=== PATIENT | female | born 1945 | race Caucasian/White ===

== ENCOUNTER 2018-07-06 23:38 | Observation (INO) | payer OTHER ==
--- OUTSIDE RECORDS SUMMARY | 2018-07-06 23:40 | XMS REPORT | Clinical Summary ---
:1945 Author Organization [facility] Address [address] [place] [address] Care Team Providers Name Role Phone Manfred Scott Primary Care Provider Allergies Active Allergy Reactions Severity Noted Date Comments Salicylates Rash Low 02/10/2014 Ciprofloxacin Anaphylaxis High 02/10/2014 Erythromycin Other (See Comments) 02/10/2014 Stomach cramping Levofloxacin Anaphylaxis High 02/10/2014 Penicillins Swelling High 02/13/2014 Medications Medication Sig Dispensed Refills Start Date End Date Status metoprolol Take 25 mg by mouth 0 Active (TOPROL-XL) 25 MG 24 daily. hr tablet furosemide (LASIX) 40 Take 40 mg by mouth 0 Active MG tablet daily. ramipril (ALTACE) 5 Take 5 mg by mouth 0 Active MG capsule daily. rOPINIRole (REQUIP) 2 Take 2 mg by mouth 0 Active MG tablet nightly. amLODIPine (NORVASC) Take 5 mg by mouth 0 Active 5 MG tablet daily. benzonatate Take 200 mg by mouth 0 Active (TESSALON) 200 MG 3 (three) times capsule daily as needed for Cough. diphenhydrAMINE Take 25 mg by mouth 0 Active (BENADRYL ALLERGY) 25 every 6 (six) hours mg tablet as needed. insulin glargine Inject 40 Units 0 Active (LANTUS SOLOSTAR) 100 subcutaneously 2 unit/mL (3 mL) InPn (two) times daily. DULAGLUTIDE Inject 0 Active (TRULICITY SUBQ) subcutaneously every 7 days. levothyroxine Take 88 mcg by mouth 0 Active (SYNTHROID, Every morning on an LEVOTHROID) 88 MCG empty stomach. tablet metFORMIN Take 500 mg by mouth 0 Active (GLUCOPHAGE) 500 MG 2 (two) times daily tablet with breakfast and dinner. gabapentin Take 100 mg by mouth 0 Active (NEURONTIN) 100 MG daily. capsule atorvastatin Take 40 mg by mouth 0 Active (LIPITOR) 40 MG daily. tablet Active Problems Problem Noted Date Trigger finger 02/13/2014 Social History Tobacco Use Types Packs/Day Years Used Date Never Smoker Smokeless Tobacco: Never Used Alcohol Use Drinks/Week oz/Week Comments No Sex Assigned at Date Recorded Not on file Job Start Date Occupation Industry Not on file Not on file Not on file Travel History Travel Start Travel End No recent travel history available. Last Filed Vital Signs Not on file Plan of Treatment Not on file Results Not on fileafter 07/05/2017 Insurance Payer Benefit Plan / Subscriber ID Type Phone Address Group [employer] - MEDICARE [employer] MEDICARE HMO xxxxxxxx [phone] [address] [place] [address] Advance Directives For more information, please contact:[address] [phone] Code Status Date Activated Date Inactivated Comments Full Code 02/13/2014 10:17 AM 02/13/2014 6:26 PM This code status was determined by: Patient
--- OUTSIDE RECORDS SUMMARY | 2018-07-06 23:40 | XMS REPORT ---
:1945 [facility] Address [address] [place] [address] Dr. Tillman [address] [place] [id number] Care Team Providers Name Role Phone RUMA SANTANA Unavailable Unavailable Problems This patient has no known problems. Allergies, Adverse Reactions, Alerts This patient has no known allergies or adverse reactions. Medications This patient has no known medications. Results Test Description Test Time Test Comments Text Results Atomic Results Result Comments TISSUE EXAM 2017-02-26 15:21:00 Surgical Pathology Report Case: [id number] Authorizing Provider: Ruma Santana MD Collected: 02/24/2017 1559 Ordering Location: [facility] Received: 02/25/2017 0810 Pathologist: Kenji Hercules MD Specimens: A) - Large Intestine, Colon - Right/Ascending, BX-R/O MICROSCOPIC COLITIS B) - Large Intestine, Colon - Left/Descending, BX-R/O MICROSCOPIC COLITIS C) - Polyp, Colon - Sigmoid, POLYP-TAKEN W/FRCP A. RIGHT/ASCENDING COLON BIOPSY - COLONIC MUCOSA, WITHIN NORMAL LIMITS- NO EVIDENCE OF LYMPHOCYTIC/MICROSCOPIC COLITISB. LEFT/DESCENDING COLON BIOPSY- COLONIC MUCOSA, WITHIN NORMAL LIMITS- NO EVIDENCE OF LYMPHOCYTIC/MICROSCOPIC COLITISC. SIGMOID COLON POLYP, BIOPSY- SESSILE SERRATED POLYP/ADENOMA Signing Pathologist Direct Phone Line: [phone] signed by Kenji Hercules MD on 02/26/2017 at 3:21 [id number] x 3Diarrhea, rule out microscopic colitisA. Right/ascending colon biopsy; B. Left/descending colon biopsy; C. Sigmoid colon polypSpecimen A: Received in formalin labeled "large intestine, colon right/ascending" is a single fragment measuring 0.3 cm in greatest dimension. Specimen is entirely submitted in A1. Specimen B: Received in formalin labeled "large intestine, colon left/descending" is a single fragment measuring 0.3 cm in greatest dimension. Specimen is entirely submitted in B1.Specimen C: Received in formalin labeled "polyp, colon sigmoid" is a single fragment measuring 0.2 cm in greatest dimension. Specimen is entirely submitted in C1. DB/ew A. Sections reveal a small piece of benign colonic mucosa with no significant histopathologic abnormality. The lamina propria has minimal chronic inflammation and a small benign lymphoid aggregate. Normal crypt architecture is seen with no evidence of granulomatous inflammation or acute colitis. Features of collagenous colitis, inflammatory bowel disease and lymphocytic colitis are not seen. Adenomatous change, dysplasia and malignancy are not seen.B. Sections reveal pieces of benign colonic mucosa with no significant histopathologic abnormality. The lamina propria has minimal chronic inflammation. Normal crypt architecture is seen with no evidence of granulomatous inflammation or acute colitis. Features of collagenous colitis, inflammatory bowel disease and lymphocytic colitis are not seen. Adenomatous change, dysplasia and malignancy are not seen.C. Sections reveal sessile serrated polyp/adenoma with glands showing hyperplastic changes, serrated appearance with focal irregularity and hyperserrations. Dysplasia and malignancy are not seen. POCT-GLUCOSE METER 2017-02-24 16:58:00 Test Item Value Reference Range Comments POC-GLUCOSE METER (BEAKER) (test 144 mg/dL 70-110 TESTED AT [address] [id number]) [place] [id number] POCT-GLUCOSE [id number] 14:21:00 Test Item Value Reference Range Comments POC-GLUCOSE METER (BEAKER) 118 mg/dL 70-110 TESTED AT [address] (test [id number]) [facility] [id number]
--- NOTE | 2018-07-07 00:45 | ER ---
Nurse's Notes [facility] Name: Franci Lange Age: 73 yrs Sex: Female : 1945 Arrival Date: 07/06/2018 Time: 23:39 Bed 4 Private MD: Diagnosis: Chest pain, unspecified;Type 1 diabetes mellitus;Obesity, unspecified;Pain in left foot Presentation: 07/06 23:58 Presenting complaint: states: "she is having left foot pain and chest pain that jd3 comes and goes.". Transition of care: patient was not received from another setting of care. Onset of symptoms was July 06, 2018. Risk Assessment: Do you want to hurt yourself or someone else? Patient reports no desire to harm self or others. Initial Sepsis Screen: Does the patient meet any 2 criteria? No. Patient's initial sepsis screen is negative. Does the patient have a suspected source of infection? No. Patient's initial sepsis screen is negative. Care prior to arrival: None. 23:58 Method Of Arrival: Wheelchair j 23:58 Acuity: JAY 2 jd3 Historical: - Allergies: 07/07 00:16 PENICILLINS; jd3 00:16 Ciprofloxacin; jd3 00:16 cefepime; jd3 00:16 Cephalosporins; jd3 00:16 Aspirin; jd3 00:16 Phenobarbital; jd3 00:16 Cortizone-10; jd3 - Home Meds: 00:16 atorvastatin 40 mg oral tab 1 tab once daily [Active]; furosemide 40 mg Oral tab jd3 [Active]; potassium chloride 10 mEq Oral cpER [Active]; ramipril Oral [Active]; amlodipine oral [Active]; metoprolol succinate 100 mg oral Tb24 [Active]; levothyroxine oral [Active]; lantis [Active]; Trulicity subcutaneous subcutaneous [Active]; gabapentin oral oral [Active]; Metformin Oral [Active]; Farxiga oral oral [Active]; benzonatate oral oral [Active]; - PMHx: 00:16 Myocardial infarction; Diabetes - IDDM; jd3 - PSHx: 00:16 brain; jd3 - Immunization history:: Adult Immunizations up to date. - Social history:: Smoking status: Patient/guardian denies using tobacco. - Ebola Screening: : Patient negative for fever greater than or equal to 101.5 degrees Fahrenheit, and additional compatible Ebola Virus Disease symptoms. - Family history:: not pertinent. Screenin:48 Abuse screen: Denies threats or abuse. Denies injuries from another. Nutritional ed1 screening: No deficits noted. Tuberculosis screening: No symptoms or risk factors identified. Fall Risk Fall in past 12 months (25 points). Secondary diagnosis (15 points) impaired mobility, No IV (0 pts). Ambulatory Aid- Crutches/Cane/Walker (15 pts). Gait- Impaired (20 pts.). Mental Status- Oriented to own ability (0 pts). Total Badillo Fall Scale indicates High Risk Score (45 or more points). Fall prevention measures have been instituted. Side Rails Up X 2 Frequent Obs/Assessments Occuring Family Present and informed to notify staff if the need to leave the bedside As available patient and family educated on Fall Prevention Program and Strategies. Assessment: 00:48 General: Appears in no apparent distress. Behavior is calm, cooperative. Pain: ed1 Complains of pain in heel of left foot and chest Pain does not radiate. Pain currently is 5 out of 10 on a pain scale. Quality of pain is described as aching, Pain began 1 day ago. Neuro: Level of Consciousness is awake, alert, obeys commands, Oriented to person, place, time, situation. Cardiovascular: Reports chest pain, Heart tones S1 S2 present. Respiratory: Airway is patent Respiratory effort is even, unlabored, Respiratory pattern is regular, symmetrical, Breath sounds are clear bilaterally. GI: Abdomen is round Bowel sounds present X 4 quads. : No signs and/or symptoms were reported regarding the genitourinary system. EENT: No signs and/or symptoms were reported regarding the EENT system. Derm: Skin is intact, is healthy with good turgor, Skin is dry, Skin is pink, warm \\T\\ dry. Skin temperature is warm. Musculoskeletal: Circulation, motion, and sensation intact. Reports pain in heel of left foot. 01:44 Reassessment: Dr. Vang at bedside to speak with patient in regards to need for ed1 vascular access for admission. Pt agrees to attempt IV one more time. 02:30 Reassessment: Patient appears in no apparent distress at this time. Patient and/or ed1 family updated on plan of care and expected duration. Pain level reassessed. Patient is alert, oriented x 3, equal unlabored respirations, skin warm/dry/pink. Vital Signs: 00:00 BP 161 / 89; Pulse 88; Resp 19 S; Temp 98.3(O); Pulse Ox 97% on R/A; Weight 113.4 kg jd3 (R); Height 4 ft. 11 in. (149.86 cm) (R); Pain 5/10; 02:30 BP 141 / 102; Pulse 82; Resp 18; Temp 98.5(O); Pulse Ox 97% on R/A; Pain 5/10; ed1 00:00 Body Mass Index 50.49 (113.40 kg, 149.86 cm) jd3 ED Course: 07/06 23:39 Patient arrived in ED. ds1 23:42 Radha Collins, RENAY is Primary Nurse. ed1 23:57 Luther Vang MD is Attending Physician. augusta 02 00:00 Triage completed. jd3 00:00 Missed attempt(s): 22 gauge in right antecubital area. lp1 00:01 Arm band placed on. EKG completed in triage. Results shown to MD. jd3 00:20 X-ray completed. Portable x-ray completed in exam room. Patient tolerated procedure kw well. 00:26 XRAY Chest (1 view) In Process Unspecified. EDMS 00:42 Manfred Pearson MD is Hospitalizing Provider. augusta 00:48 Patient has correct armband on for positive identification. Placed in gown. Bed in low ed1 position. Call light in reach. Side rails up X2. Adult w/ patient. conveyor monitor on. Pulse ox on. NIBP on. 00:48 Patient maintains SpO2 saturation greater than 95% on room air. ed1 00:50 Foot Left 3 View XRAY In Process Unspecified. EDMS 01:25 Missed attempt(s): 18 gauge midlines to bilateral arms. Pt did not tolerated it well. fc Refused to allow the second attempt to be completed. . 01:30 Notified ED physician of a critical lab result(s). D dimer 764. fc 02:00 Missed attempt(s): 22 gauge in left upper arm. Bleeding controlled, band aid applied, aa1 catheter tip intact. 02:10 Inserted saline lock: 24 gauge in right upper arm, using aseptic technique. Blood aa1 collected. 03:03 No provider procedures requiring assistance completed. Patient admitted, IV remains in ed1 place. intact, No redness/swelling at site. Administered Medications: 02:28 Drug: Lopressor (metoprolol TARTRATE) 50 mg Route: PO; ed1 03:04 Follow up: Response: No adverse reaction ed1 02:29 Drug: Lovenox 100 mg Route: Sub-Q; Site: right lower abdomen; ed1 03:04 Follow up: Response: No adverse reaction ed1 03:03 CANCELLED (Order placed in [employer]): PlaVIX 300 mg PO once ed1 Outcome: 00:41 Discharge ordered by . augusta 00:43 Decision to Hospitalize by Provider. augusta 03:03 Admitted to Med/surg accompanied by tech, family with patient, via stretcher, room 222, ed1 with chart, Report called to Corie Graff LVN 03:03 Condition: good 03:03 Discharge instructions given to patient, family, Instructed on the need for admit, Demonstrated understanding of instructions. 03:05 Patient left the ED. ed1 Signatures: Dispatcher [employer] EDMS Lexii Mota, RN RN aa1 Luther Vang MD MD cha Chretien, Felicia RN RN Ana Ferreira ds1 Radha Collins RN RN ed1 Elizabeth Weinstein Laura, RN RN lp1 Alexandr De RN RN jd3 Corrections: (The following items were deleted from the chart) 00:00 00:00 Immunization history: Adult Immunizations jd3 jd3
--- NOTE | 2018-07-07 00:45 | EDPHYS ---
Physician Documentation [facility] Name: Franci Lange Age: 73 yrs Sex: Female : 1945 Arrival Date: 07/06/2018 Time: 23:39 Bed 4 Private MD: ED Physician Luther Vang HPI: 07/07 00:37 This 73 yrs old Female presents to ER via Wheelchair with complaints of Chest augusta Pain. 00:37 The patient or guardian reports chest pain that is located primarily in the anterior augusta chest wall, right. Onset: yesterday, last night. The pain does not radiate. Associated signs and symptoms: The patient has no apparent associated signs or symptoms. The chest pain is described as a heaviness, a pressure. Modifying factors: The symptoms are alleviated by nothing. the symptoms are aggravated by nothing. Severity of pain: At its worst the pain was mild in the emergency department the pain is unchanged. The patient has experienced similar episodes in the past, several times. Historical: - Allergies: 00:16 PENICILLINS; jd3 00:16 Ciprofloxacin; jd3 00:16 cefepime; jd3 00:16 Cephalosporins; jd3 00:16 Aspirin; jd3 00:16 Phenobarbital; jd3 00:16 Cortizone-10; jd3 - Home Meds: 00:16 atorvastatin 40 mg oral tab 1 tab once daily [Active]; furosemide 40 mg Oral tab jd3 [Active]; potassium chloride 10 mEq Oral cpER [Active]; ramipril Oral [Active]; amlodipine oral [Active]; metoprolol succinate 100 mg oral Tb24 [Active]; levothyroxine oral [Active]; lantis [Active]; Trulicity subcutaneous subcutaneous [Active]; gabapentin oral oral [Active]; Metformin Oral [Active]; Farxiga oral oral [Active]; benzonatate oral oral [Active]; - PMHx: 00:16 Myocardial infarction; Diabetes - IDDM; jd3 - PSHx: 00:16 brain; jd3 - Immunization history:: Adult Immunizations up to date. - Social history:: Smoking status: Patient/guardian denies using tobacco. - Ebola Screening: : Patient negative for fever greater than or equal to 101.5 degrees Fahrenheit, and additional compatible Ebola Virus Disease symptoms. - Family history:: not pertinent. ROS: 00:37 Constitutional: Negative for fever, chills, and weight loss, Eyes: Negative for injury, augusta pain, redness, and discharge, ENT: Negative for injury, pain, and discharge, Neck: Negative for injury, pain, and swelling, Respiratory: Negative for shortness of breath, cough, wheezing, and pleuritic chest pain, Abdomen/GI: Negative for abdominal pain, nausea, vomiting, diarrhea, and constipation, Back: Negative for injury and pain, : Negative for injury, bleeding, discharge, and swelling, MS/Extremity: Negative for injury and deformity, Skin: Negative for injury, rash, and discoloration, Neuro: Negative for headache, weakness, numbness, tingling, and seizure, Psych: Negative for depression, anxiety, suicide ideation, homicidal ideation, and hallucinations, Allergy/Immunology: Negative for hives, rash, and allergies, Endocrine: Negative for neck swelling, polydipsia, polyuria, polyphagia, and marked weight changes, Hematologic/Lymphatic: Negative for swollen nodes, abnormal bleeding, and unusual bruising. 00:37 Cardiovascular: Positive for chest pain, of the anterior aspect of right upper chest and right breast. Exam: 00:37 Constitutional: This is a well developed, well nourished patient who is awake, alert, augusta and in no acute distress. Head/Face: Normocephalic, atraumatic. Eyes: Pupils equal round and reactive to light, extra-ocular motions intact. Lids and lashes normal. Conjunctiva and sclera are non-icteric and not injected. Cornea within normal limits. Periorbital areas with no swelling, redness, or edema. ENT: Nares patent. No nasal discharge, no septal abnormalities noted. Tympanic membranes are normal and external auditory canals are clear. Oropharynx with no redness, swelling, or masses, exudates, or evidence of obstruction, uvula midline. Mucous membranes moist. Neck: Trachea midline, no thyromegaly or masses palpated, and no cervical lymphadenopathy. Supple, full range of motion without nuchal rigidity, or vertebral point tenderness. No Meningismus. Chest/axilla: Normal chest wall appearance and motion. Nontender with no deformity. No lesions are appreciated. Cardiovascular: Regular rate and rhythm with a normal S1 and S2. No gallops, murmurs, or rubs. Normal PMI, no JVD. No pulse deficits. Respiratory: Lungs have equal breath sounds bilaterally, clear to auscultation and percussion. No rales, rhonchi or wheezes noted. No increased work of breathing, no retractions or nasal flaring. Abdomen/GI: Soft, non-tender, with normal bowel sounds. No distension or tympany. No guarding or rebound. No evidence of tenderness throughout. Back: No spinal tenderness. No costovertebral tenderness. Full range of motion. Female : Normal external genitalia. Skin: Warm, dry with normal turgor. Normal color with no rashes, no lesions, and no evidence of cellulitis. Neuro: Awake and alert, GCS 15, oriented to person, place, time, and situation. Cranial nerves II-XII grossly intact. Motor strength 5/5 in all extremities. Sensory grossly intact. Cerebellar exam normal. Normal gait. Psych: Awake, alert, with orientation to person, place and time. Behavior, mood, and affect are within normal limits. 00:37 Musculoskeletal/extremity: Extremities: noted in the medial aspect of left heel and heel of left foot: decreased ROM, pain, tenderness, DVT Exam: No signs of deep vein thrombosis. no pain, no swelling, no tenderness, negative Homans' sign noted on exam, no appreciated bluish discoloration, no erythema, no increased warmth. Vital Signs: 00:00 BP 161 / 89; Pulse 88; Resp 19 S; Temp 98.3(O); Pulse Ox 97% on R/A; Weight 113.4 kg jd3 (R); Height 4 ft. 11 in. (149.86 cm) (R); Pain 5/10; 02:30 BP 141 / 102; Pulse 82; Resp 18; Temp 98.5(O); Pulse Ox 97% on R/A; Pain 5/10; ed1 00:00 Body Mass Index 50.49 (113.40 kg, 149.86 cm) jd3 MDM: 07/06 23:57 Patient medically screened. [facility] [place] 07/07 00:37 Data reviewed: vital signs, nurses notes, lab test result(s), EKG, radiologic studies, augusta plain films. 07/06 23:59 Order name: Basic Metabolic Panel; Complete Time: 02:56 [facility] [place] 07/06 23:59 Order name: CBC with Diff; Complete Time: 01:38 [facility] [place] 07/06 23:59 Order name: LFT's; Complete Time: 02:56 [facility] [place] 07/06 23:59 Order name: Magnesium; Complete Time: 02:56 [facility] [place] 07/06 23:59 Order name: NT PRO-BNP; Complete Time: 02:56 [facility] [place] 07/06 23:59 Order name: PT-INR [facility] [place] 07/06 23:59 Order name: Troponin (emerg Dept Use Only); Complete Time: 02:56 [facility] [place] 07/06 23:59 Order name: Lipase; Complete Time: 02:56 [facility] [place] 07/06 23:59 Order name: Urine Culture [facility] [place] 07/07 00:29 Order name: D-Dimer; Complete Time: 01:38 [facility] [place] 07/07 00:52 Order name: Basic Metabolic Panel EDMS 07/07 00:52 Order name: Basic Metabolic Panel EDMS 07/07 00:52 Order name: CBC with Automated Diff EDMS 07/07 00:52 Order name: CBC with Automated Diff EDMS 07/06 23:59 Order name: XRAY Chest (1 view) [facility] [place] 07/06 23:59 Order name: EKG; Complete Time: 00:00 [facility] [place] 07/07 00:29 Order name: Foot Left 3 View XRAY [facility] [place] 07/07 00:48 Order name: CONS Physician Consult EDMS 07/07 00:52 Order name: Consistent Carb (ADA) 1800 Jos[address] EDMS 07/07 00:52 Order name: EKG Electrocardiogram EDMS 07/07 00:52 Order name: EKG Electrocardiogram EDMS 07/07 00:52 Order name: EKG Electrocardiogram EDMS 07/07 00:52 Order name: Troponin I EDMS 07/07 00:52 Order name: Troponin I EDMS 07/07 00:52 Order name: Troponin I EDMS 07/07 00:54 Order name: Echo with Doppler EDMS 07/07 01:30 Order name: Protime (+INR); Complete Time: 01:38 EDMS 07/06 23:59 Order name: Cardiac monitoring; Complete Time: 23:59 [facility] [place] 07/06 23:59 Order name: EKG - Nurse/Tech; Complete Time: 00:00 [facility] [place] 07/06 23:59 Order name: IV Saline Lock; Complete Time: 00:00 [facility] [place] 07/06 23:59 Order name: Labs collected and sent; Complete Time: 02:28 [facility] [place] 07/06 23:59 Order name: O2 Per Protocol; Complete Time: 00:00 [facility] [place] 07/06 23:59 Order name: O2 Sat Monitoring; Complete Time: 00:00 [facility] [place] 07/07 00:52 Order name: EKG Electrocardiogram EDMS Administered Medications: 02:28 Drug: Lopressor (metoprolol TARTRATE) 50 mg Route: PO; ed1 03:04 Follow up: Response: No adverse reaction ed1 02:29 Drug: Lovenox 100 mg Route: Sub-Q; Site: right lower abdomen; ed1 03:04 Follow up: Response: No adverse reaction ed1 03:03 CANCELLED (Order placed in StartX): PlaVIX 300 mg PO once ed1 Disposition: 07/07/18 00:43 Hospitalization ordered by Manfred Pearson for Inpatient Admission. Preliminary diagnosis are Chest pain, unspecified, Type 1 diabetes mellitus, Obesity, unspecified, Pain in left foot. - Bed requested for Telemetry/MedSurg (observation). - Status is Inpatient Admission. ed1 - Condition is Fair. - Problem is new. - Symptoms have improved. UTI on Admission? No Signatures: Dispatcher [employer] EDPR Diamante Hernandez RN Luther Patel MD MD cha Riggs, Erika RN RN ed1 Alexandr De RN RN jd3 Corrections: (The following items were deleted from the chart) 00:00 00:00 Immunization history: Adult Immunizations jd3 jd3 00:42 00:41 07/07/2018 00:41 Discharged to Home. Impression: Chest pain, unspecified; aug[place] Obesity, unspecified; Type 1 diabetes mellitus. Condition is Stable. Forms are Medication Reconciliation Form, Thank You Letter, Antibiotic Education, Prescription Opioid Use. Follow up: Private Physician; When: 2 - 3 days; Reason: Recheck today's complaints, Continuance of care, Re-evaluation by your physician. Problem is new. Symptoms have improved. augusta 00:44 00:43 Hospitalization Ordered by Manfred Pearson MD for Inpatient Admission. Preliminary augusta diagnosis is Chest pain, unspecified; Type 1 diabetes mellitus; Obesity, unspecified. Bed requested for Telemetry/MedSurg (observation). Status is Inpatient Admission. Condition is Fair. Problem is new. Symptoms have improved. UTI on Admission? No. [place] 00:51 00:44 07/07/2018 00:43 Hospitalization Ordered by Manfred Pearson MD for Inpatient mw Admission. Preliminary diagnosis is Chest pain, unspecified; Type 1 diabetes mellitus; Obesity, unspecified; Pain in left foot. Bed requested for Telemetry/MedSurg (observation). Status is Inpatient Admission. Condition is Fair. Problem is new. Symptoms have improved. UTI on Admission? No. [facility] [place] 03:03 02:57 PlaVIX 300 mg PO once ordered. [facility] [place] ed1 03:05 00:51 07/07/2018 00:43 Hospitalization Ordered by Manfred Pearson MD for Inpatient ed1 Admission. Preliminary diagnosis is Chest pain, unspecified; Type 1 diabetes mellitus; Obesity, unspecified; Pain in left foot. Bed requested for Telemetry/MedSurg (observation). Status is Inpatient Admission. Condition is Fair. Problem is new. Symptoms have improved. UTI on Admission? No. mw
[2018-07-07] MEDS ORDERED: ACETAMINOPHEN 500 MG TAB PO PRN (00:47)
[2018-07-07] MEDS ORDERED: MORPHINE 4 MG/ML SYR IV PRN (00:47)
[2018-07-07] MEDS ORDERED: ONDANSETRON 4 MG/2 ML VIAL IV PRN (00:47)
[2018-07-07] MEDS ORDERED: METOPROLOL TAR 50 MG TAB ONE (01:25)
[2018-07-07 01:29] LABS: Absolute Lymphocytes (CBC) 4.4 K/uL (0.7-4.9); Absolute Monocytes 0.8 K/uL (0.1-1.3); Absolute Neutrophil 5.4 K/uL (1.8-8.0); Basophils % 1.3 % (0-1.3); Hematocrit 47.7 % (36.0-45.0); MPV 10.6 fL (7.6-11.3); Monocytes % 6.8 % (3.3-12.3); Protime INR 0.98; RBC Red Blood Cell Count 5.13 M/uL (3.86-4.86)
[2018-07-07 02:46] LABS: ALT/SGPT 23 U/L (12-78); AST/SGOT 15 U/L (15-37); Albumin 2.9 g/dL (3.4-5.0); Alkaline Phosphatase 147 U/L (45-117); BUN Blood Urea Nitrogen 14 mg/dL (7-18); Bicarbonate 24 mmol/L (21-32); Bilirubin Direct < 0.1 mg/dL (0-0.2); Bilirubin Total 0.4 mg/dL (0.2-1.0); Glucose Level 288 mg/dL (74-106); Lipase 53 U/L (73-393); Magnesium 1.8 mg/dL (1.8-2.4); NT PRO-BNP 1767 pg/mL (<125); Potassium 4.4 mmol/L (3.5-5.1); Protein, Total 7.5 g/dL (6.4-8.2); Sodium Level 137 mmol/L (136-145); Troponin (Emerg Dept Use Only) 0.09 ng/mL (0.0-0.045)
[2018-07-07] MEDS ORDERED: CLOPIDOGREL 75 MG TABLET PO ONE (03:01)
[2018-07-07 03:35] VITALS: BMI 45.4
[2018-07-07 05:42] LABS: Urine Appearance CLEAR; Urine Bilirubin NEGATIVE (NEG); Urine Blood NEGATIVE (NEG); Urine Color YELLOW; Urine Glucose 3+ (NEG); Urine Protein 2+ (NEG); Urine Specific Gravity >=1.030 (1.005-1.030); Urine Urobilinogen 0.2 mg/dL (0.2-1.0)
[2018-07-07 05:49] LABS: Urine Microscopic Reflex ORDER UMIC
[2018-07-07 05:55] LABS: Urine Culture Reflex Order NOT NEEDED
[2018-07-07 05:56] LABS: Urine Bacteria <20 /HPF (<20); Urine RBC <5 /HPF (NONE SEEN); Urine Yeast FEW (NONE SEEN)
--- NOTE | 2018-07-07 08:18 | RAD REPORT ---
EXAM DESCRIPTION: US - Extrem Venous W Compress Alexander - 07/07/2018 8:14 am CLINICAL HISTORY: elevated d -dimer , left foot pain Bilateral leg edema and swelling. COMPARISON: No comparisons TECHNIQUE: Real-time sonographic interrogation of the left and right lower extremity deep venous sys tems was performed. FINDINGS: Normal compressibility, flow augmentation, phasic flow and spontaneous flow is identified in both the left and right lower extremity deep venous systems. IMPRESSION: No sonographic evidence of left or right lower extremity deep venous thrombosis.
--- NOTE | 2018-07-07 08:19 | RAD REPORT ---
EXAM DESCRIPTION: RAD - Chest Single View - 07/07/2018 12:21 am CLINICAL HISTORY: CHEST PAIN Chest pain. COMPARISON: Chest Pa And Lat (2 Views) dated 06/09/2016; Chest Pa And Lat (2 Views) dated 10/01/2015; CH EST PA AND LAT 2 VIEW dated 07/04/2015; CHEST SINGLE VIEW dated 07/15/2014 FINDINGS: Portable technique limits examination quality. The lungs are grossly clear. The heart is mildly prominent in size. No displaced fractures.Left-sided shunt tubing is present. IMPRESSION: No acute intrathoracic process suspected.
--- NOTE | 2018-07-07 08:23 | RAD REPORT ---
EXAM DESCRIPTION: NM - Vent Perfusion VQ Scan - 07/07/2018 6:41 am CLINICAL HISTORY: ro pe Chest pain, shortness of breath COMPARISON: No comparisons TECHNIQUE: 20.5mCi Xe-133 gas inhaled and 7.2mCi Tc-MAA IV. Planar ventilation scan was performed in posterior projection after Xe-133 gas inhalation (wash-in, e quilibrium, and wash-out phases) followed by perfusion scan with Tc-MAA IV in multiple projections. Examination is correlated with recent chest radiograph. FINDINGS: Homogeneous ventilation was noted with moderate air trapping. Slight heterogenous appearance to perfusion imaging is seen. However, no significant mismatched defec ts to indicate elevated risk of pulmonary embolism. IMPRESSION: Low probability of pulmonary embolism.
[2018-07-07] MEDS ORDERED: D50W 25 GM/50 ML SYRINGE IV PRN (08:25)
[2018-07-07] MEDS ORDERED: GLUCAGON 1 MG/VIAL IM PRN (08:25)
--- NOTE | 2018-07-07 08:31 | RAD REPORT ---
EXAM DESCRIPTION: RAD - Foot Left 3 View - 07/07/2018 12:50 am CLINICAL HISTORY: PAIN COMPARISON: No comparisons FINDINGS: Intertarsal degenerative changes are present. No acute fracture or dislocation is seen. Pr ominent calcaneal osteophytes are seen. No aggressive bone lesion.
[2018-07-07 08:59] VITALS: BP 110/90; TEMP 97.1
[2018-07-07] MEDS ORDERED: AMLODIPINE 10 MG TAB PO SCH (09:00)
[2018-07-07] MEDS ORDERED: GABAPENTIN 100 MG CAP PO SCH (09:00)
[2018-07-07] MEDS ORDERED: ENOXAPARIN 100 MG/ML SYR SQ SCH (09:00)
[2018-07-07] MEDS ORDERED: INSULIN GLARGINE 100 UNITS/ML SQ SCH (09:00)
[2018-07-07] MEDS ORDERED: RAMIPRIL 5 MG CAP PO SCH (09:00)
[2018-07-07] MEDS ORDERED: METOPROLOL TAR 50 MG TAB PO SCH (09:00)
[2018-07-07] MEDS: INSULIN -REGULAR HUMAN 50 UNIT/0.5 ML ML SQ SCH ×2 (09:26→12:33)
--- NOTE | 2018-07-07 10:31 | EKG ---
Test Date: 2018-06-05 Test Time: 23:55:46 Hydraulic Engineer: SIMI MEASUREMENT RESULTS: Intervals: Rate: 85 VT: 166 QRSD: 90 QT: 364 QTc: 433 [place]: P: -14 VT: 166 QRS: 56 T: -32 INTERPRETIVE STATEMENTS: Normal sinus rhythm Possible Inferior infarct, age undetermined Anterior infarct, age undetermined Abnormal ECG Compared to ECG 01/23/2011 01:40:59 No significant changes Electronically Signed On 07-07-18 10:30:[address] SWEEPER by Sanchez Demarco
[2018-07-07 11:58] VITALS: O2SAT 94
--- NOTE | 2018-07-07 14:02 | CON ---
History Of Present Illness: Ms. Lange came to the hospital because her heel is hurting. She is k nown to have bone spurs. She had injections in the other heel and found that intolerable, she would not go through that again. This time, it is the other heel that is hurting. Prominent osteophytes a re seen, otherwise, known as bone spurs, so she is probably having pain from that. There is no open wound or other problem. While she was being evaluated for the heel pain, she mentioned that she has chest pain. Ms. Lange has chest pain all the time. More than 30 years ago, a cardiac cath was do ne. Her coronary arteries were normal without atherosclerosis, but there was an injury to her right coronary and she had an inferior AK with RV involvement, and since that time has stated she would nev er undergo another cardiac cath, no matter how sick she was. She restated that today she has angina infrequently, I am sure some of the spells are not even due to the heart; some of them may well be. She uses nitroglycerin sometimes but usually prefers not to because the spells usually go in a few mi nutes. She mentioned that she had chest pain and was placed in the hospital because of that. A vent ilation perfusion lung scan is negative for pulmonary embolus. She has had an examination of her vei ns in her legs and there is no evidence of thrombus or DVT. A chest x-ray is within normal limits. Ms. Lange has diabetes and is at high risk of having progressive CAD, but she has told us she woul d only accept medical therapy for it. She is not having chest pain now. Since being in the hospital , troponins are 0.09, twice at this level. I do not think I would call this an acute coronary syndro me. I believe Ms. Lange has stable angina. She should continue to go with the same medical thera py for her CAD as before. She takes metformin, levothyroxine, ramipril, potassium chloride, metoprol ol, amlodipine, gabapentin, Farxiga, furosemide, benzonatate, atorvastatin, insulin and dulaglutide. She uses no tobacco, never has. Impression: The patient has stable coronary artery disease. She could be discharged home without an y further cardiac testing. SUSAN/MASSIEL Voice ID: [id number] Report ID: [id number]
[2018-07-07] MEDS ORDERED: ATORVASTATIN 40 MG TAB PO SCH (21:00)
[2018-07-07] MEDS ORDERED: CLOTRIMAZOLE 1% CREAM 15 GM TOP SCH (21:00)
--- NOTE | 2018-07-08 | HP ---
Date of Admission: 07/07/2018 Chief Complaint: Chest pain. History Of Present Illness: A 73-year-old female who is known to have diabetes, was brought to the e mergency room because of chest pain and left arm pain. The patient had evaluation done. Her troponi n was mildly elevated. The patient is admitted. No history of fever, chills or rigors. Past Medical History: The patient is known to have history of coronary artery disease, type 2 diabet es, hyperlipidemia, and hypertension. Past Surgical History: Positive for a brain surgery in the remote past. Allergies: MULTIPLE INCLUDE CIPRO, PENICILLIN, CEFEPIME, ASPIRIN, PHENOBARBITAL. Home Medicines: Lipitor, Lasix, gabapentin, Forxiga, Trulicity, metoprolol, lactose. Family History: Noncontributory. Personal History: The patient is being helped by . Review of Systems: No fever, chills or rigors. Physical Examination: General: Revealed a 73-year-old female, comfortable at rest. Vital Signs: Normal. HEENT: Negative. Neck: Supple. JVD negative. Chest: Clear. Heart: Regular. Abdomen: Soft. Extremities: Mild pedal edema noted. Laboratory Data: White count 11.1. Chem profile; troponin 0.09, albumin 2.9, random blood sugar of 288. Lung scan, low probability. X-ray foot, changes of osteoarthritis and bony spurs. Assessment: 1.Chest pain. 2.Type 2 diabetes. 3.Known carotid artery disease. 4.Hyperlipidemia. 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 Plan: The patient is scheduled to be seen by Cardiology Service to see whether she would need a chem ical stress test in view of her chest pain. The patient meanwhile will be continued on her insulin s liding scale and long-acting insulin. REAGANK/MODL Voice ID: [id number]
[2018-07-08] MEDS ORDERED: LEVOTHYROXINE SOD 0.088 MG TAB PO SCH (06:00)
--- NOTE | 2018-07-08 08:57 | ECHO ---
HEIGHT: 4 ft 11 in WEIGHT: 225 lb 0 oz DATE OF STUDY: 07/07/[address]: Luther Vang MD 2-DIMENSIONAL: YES M.MODE: YES DOPPLER: YES COLOR FLOW: YES TDS: PORTABLE: DEFINITY: BUBBLE STUDY: DIAGNOSIS: CHEST PAIN CARDIAC HISTORY: CATHERIZATION: NO SURGERY: NO PROSTHETIC VALVE: NO PACEMAKER: NO MEASUREMENTS (cm) DIASTOLIC (NORMALS) SYSTOLIC (NORMALS) IVSd 1.1 (0.6-1.2) LA Diam 3.5 (1.9-4.0) LVEF 65% LVIDd 3.8 (3.5-5.7) LVIDs 2.5 (2.0-3.5) %FS 35% LVPWd 1.1 (0.6-1.2) Ao Diam 2.2 (2.0-3.7) 2 DIMENSIONAL ASSESSMENT: RIGHT ATRIUM: NORMAL LEFT ATRIUM: NORMAL RIGHT VENTRICLE: NORMAL LEFT VENTRICLE: NORMAL TRICUSPID VALVE: NORMAL MITRAL VALVE: NORMAL PULMONIC VALVE: NORMAL AORTIC VALVE: NORMAL PERICARDIAL EFFUSION: NONE AORTIC ROOT: NORMAL LEFT VENTRICULAR WALL MOTION: INFERIOR HYPOKINESIS DOPPLER/COLOR FLOW: MILD TRICUSPID REGURGITATION. NORMAL RIGHT VENTRICULAR SYSTOLIC PRESSURE. COMMENTS: NORMAL LEFT VENTRICULAR EJECTION FRACTION WITH INFERIOR WALL HYPOKINESIS. OTHERWISE NORMAL 2-DIMENSIONAL ECHOCARDIOGRAM. MILD TRICUSPID REGURGITATION. TECHNOLOGIST: ALISIA RODRIGUEZ
== END 2018-07-07 17:19 | disposition home or self-care (01) ==
LOC: ER 23:38 → ERHOLD 07-07 01:04 → 2ND 07-07 02:53
PROVIDERS: ADMIT Internal Medicine; ATTEND Internal Medicine
DX: R07.9 Chest pain, unspecified (principal); E11.9 Type 2 diabetes mellitus without complications; I25.10 Atherosclerotic heart disease of native coronary artery without angina pectoris; E78.5 Hyperlipidemia, unspecified; I10 Essential (primary) hypertension; Z88.6 Allergy status to analgesic agent; Z88.0 Allergy status to penicillin
CPT/HCPCS: 36415; 71045; 73630; 78582; 80048; 80076; 82962 ×3; 83690; 83735; 83880; 84484 ×3; 85025; 85379; 85610; 87086; 87088; 93005; 93306; 93970; 96372; 99285; A9540; A9558; G0378 ×2; J1650 ×2; 81003; 81015

== ENCOUNTER 2018-09-07 21:01 | Emergency (ER) | payer OTHER ==
--- OUTSIDE RECORDS SUMMARY | 2018-09-07 21:04 | XMS REPORT | Clinical Summary ---
:1945 Author Organization [facility] Address [address] [place] [address] Care Team Providers Name Role Phone Manfred [...] Not on file Results Not on fileafter 09/06/2017 Insurance Payer Benefit Plan / Subscriber ID Type Phone Address Group [employer] - MEDICARE [employer] MEDICARE HMO xxxxxxxx [phone] [address] [place] [address] Advance Directives For more information, please contact:[address] [phone] Code Status Date Activated Date Inactivated Comments Full Code 02/13/2014 10:17 AM 02/13/2014 6:26 PM This code status was determined by: Patient
--- OUTSIDE RECORDS SUMMARY | 2018-09-07 21:50 | XMS REPORT | Continuity of Care Document ---
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 DEHYDRATION,SUE Active [facility] N CONTROL [address] [place] [address] BAD REACTION TO Active [facility] MEDICATION [address] [place] [address] LEG CRAMPS Active [address] DEHYDRATION Active [address] SDH Active [facility] Rehabilitation DM - Diabetes Active Problem 03/27/[address] HYDROCEPHALUS Active [address] BRAIN MASS Active [facility] Rehabilitation LIFE FLIGHT Active [address] BRAIN Active [facility] MASS/[address] Altered mental Active Problem 03/27/2011 [facility] Craniotomy Active Problem 03/27/2011 [facility] HTN - Active Problem 03/27/2011 [facility] Hypertension [facility] Lethargic Inactive Problem 03/27/2011 [facility] Meningioma of Active Problem 03/27/2011 [facility] brain [facility] Visual Active Problem 03/27/2011 [facility] Itching Active Problem 03/27/2011 [facility] Pain Active Problem 03/27/2011 [facility] Altered mental Active Problem 08/21/2018 [facility]ness of Resolved Problem 08/21/2018 right eye Mischer one Neuro,[facility] eye<sup>2</sup> [facility] 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 Itching Active Problem 08/21/2018 [facility] Meningioma of Active Problem 08/21/2018 [facility] brain Neuro,[facility] Morbid obesity Resolved Problem 08/21/2018 [facility] JD - Resolved Problem 08/21/2018 [facility] Pain Active Problem 08/21/2018 [facility] Visual Active Problem 08/21/2018 [facility] BRAIN NEOPLASM Active NOS Rehabilitation ADMINISTRTVE Active [facility] COMMUNICAT Active [facility] HYDROCEPHALUS [facility] SUBDURAL Active [facility] DEHYDRATION Active [facility] SLURRED SPEECH Active [facility] Medications Medication Details Route Status Patient Ordering Order Source Instructions Provider Date Furosemide 20 MG 20 mg, 1 tab, No Longer [facility] Oral Tablet Route: PO, Drug Active 2018 Medical form: TAB, Every Center Other Day, Dosing Weight 111.6, kg, Start date: 08/20/18 9:00:00 CDT, Duration: 30 day, Stop date: 09/17/18 9:00:00 CDTNotes: (Same as: Lasix) May cause GI upset. Give with food or milk. Furosemide 20 MG 40 mg, Route: Inactive 08/20[facility] Oral Tablet PO, Drug form: 2019 Medical TAB, Daily, Center Dosing Weight 111.6, kg, Start date: 08/19/18 21:00:00 CDT, Duration: 30 day, Stop date: 09/18/18 9:00:00 CDT clopidogrel 75 mg 75 mg=1 tab, PO, Active 08/20[facility] oral tablet Daily, # 90 tab, 2019 Medical 3 Refill(s), [place] [facility]: [facility] [id number] rosuvastatin 10 20 mg=2 tab, PO, Active 08/20[facility] [place] mg oral tablet Bedtime, # 180 2019 Medical tab, 3 Refill(s) Center ramipril 5 mg 10 mg=2 cap, PO, Active [facility] oral capsule Q24H, # 180 cap, 2019 Medical 3 Refill(s) Center Insulin Glargine 20 unit, SUB-Q, Active [facility] 100 UNT/ML QPM, # 15 mL, 3 2019 Medical Injectable Refill(s) Center Solution Furosemide 20 MG 20 mg=1 tab, PO, Active [facility] Oral Tablet Every Other Day, 2019 Medical # 15 tab, 0 Center Refill(s) amLODIPine 5 mg 5 mg=1 tab, PO, Active [facility] oral tablet Daily, # 90 tab, 2019 Medical 3 Refill(s) Center metoprolol 25 mg=1 tab, PO, Active [facility] tartrate 25 mg BID, # 60 tab, 0 2019 Medical oral tablet Refill(s) Center Furosemide 20 MG 40 mg, 1 tab, Inactive [facility] Oral Tablet Route: PO, Drug 2019 Medical form: TAB, ONCE, Center Dosing Weight 111.6, kg, Start date: 08/19/18 10:14:00 CDT, Stop date: 08/19/18 10:14:00 CDTNotes: (Same as: Lasix) May cause GI upset. Give with food or milk. Ramipril 10 mg, 2 cap, Inactive [facility] Route: PO, Drug 2018 Medical form: CAP, Q24H, Center Dosing Weight 111.6, kg, Start date: 08/19/18 10:00:00 CDT, Duration: 30 day, Stop date: 09/17/18 10:00:00 CDTNotes: (Same as:Altace) Hydralazine 10 mg, Route: Inactive [facility] IV, ONCE, Dosing 2019 Medical Weight 111.6, Center kg, Start date: 08/19/18 9:10:00 CDT, Stop date: 08/19/18 9:10:00 CDT Amlodipine 10 mg, 1 tab, Inactive [facility] Route: PO, Drug 2019 Medical form: TAB, Q24H, Center Dosing Weight 111.6, kg, Start date: 08/19/18 9:00:00 CDT, Duration: 30 day, Stop date: 09/17/18 9:00:00 CDTNotes: (Same as: Norvasc) Fentanyl 50 microgram, Inactive [place] Route: IV, ONCE, 2019 Medical Dosing Weight Center 111.6, kg, Start date: 08/19/18 8:49:00 CDT, Stop date: 08/19/18 8:49:00 CDT Omnipaque 350 150 ml, Route: Inactive [facility] INTRAARTERIAL, 2019 Medical Dosing Weight Center 111.6, kg, ONCE, Start date: 08/19/18 8:49:00 CDT, Stop date: 08/19/18 8:49:00 CDT heparin 3,000 unit, Inactive [facility] Route: IV, ONCE, 2019 Medical Dosing Weight Center 111.6, kg, Start date: 08/19/18 8:49:00 CDT, Stop date: 08/19/18 8:49:00 CDT Midazolam 1 mg, Route: IV, Inactive [place] ONCE, Dosing 2019 Medical Weight 111.6, Center kg, Start date: 08/19/18 8:49:00 CDT, Stop date: 08/19/18 8:49:00 CDT iodixanol 100 mL, Route: Inactive [facility] IVP, Drug Form: 2019 Medical SOLN, Dosing Center Weight 111.6, kg, ONCALL, STAT, Start date: 08/18/18 13:07:00 CDT, Duration: 1 doses or times, Dose=2.2ml/kg, Max [id number] -- "To be infused by Radiology Staff ONLY" Imodium A-D 1 mg, 5 mL, No Longer [facility] Route: PO, Drug Active 2018 Medical form: LIQ, Q6H, Center Dosing Weight 111.6, kg, PRN Diarrhea, Start date: 08/18/18 12:08:00 CDT, Duration: 30 day, Stop date: 09/17/18 12:07:00 CDTNotes: Same as Imodium Ativan 1 mg, 0.5 mL, No Longer [facility] Route: IV, Drug Active 2018 Medical form: INJ, ONCE, Center Dosing Weight 111.6, kg, PRN Other -See Comment, Start date: 08/18/18 9:40:00 CDT, MRINotes: (Same as: Ativan) Ramipril 10 mg, 2 cap, No Longer [facility] Route: PO, Drug Active 2018 Medical form: CAP, Center Daily, Dosing Weight 111.6, kg, Start date: 08/18/18 9:00:00 CDT, Duration: 30 day, Stop date: 09/16/18 9:00:00 CDTNotes: (Same as:Altace) Amlodipine 10 mg, 1 tab, No Longer [facility] Route: PO, Drug Active 2018 Medical form: TAB, Center Daily, Dosing Weight 111.6, kg, Start date: 08/18/18 9:00:00 CDT, Duration: 30 day, Stop date: 09/16/18 9:00:00 CDTNotes: (Same as: Norvasc) heparin 5,000 unit, 1 No Longer [place] mL, Route: Active 2018 Medical SUB-Q, Drug Center form: INJ, Q8H, Dosing Weight 111.6, kg, Start date: 08/18/18 0:00:00 CDT, Duration: 30 day, Stop date: 09/16/18 16:00:00 CDTNotes: porcine heparin atorvastatin 40 mg, Route: Inactive [place] PO, Drug form: 2019 Medical TAB, Bedtime, Center Dosing Weight 111.6, kg, Start date: 08/17/18 21:00:00 CDT, Duration: 30 day, Stop date: 09/15/18 21:00:00 CDT Crestor 20 mg, 2 tab, No Longer [facility] Route: PO, Drug Active 2018 Medical form: TAB, Center Bedtime, Dosing Weight 111.6, kg, Start date: 08/17/18 21:00:00 CDT, Duration: 30 day, Stop date: 09/15/18 21:00:00 CDTNotes: (Same As: Crestor) insulin glargine 20 unit, 0.2 mL, No Longer [place] Route: SUB-Q, Active 2018 Medical Drug form: SOLN, Center QPM, Start date: 08/17/18 17:00:00 CDT, Duration: 30 day, Stop date: 09/15/18 17:00:00 CDTNotes: Same as: Lantus) Do not hold insulin without contacting prescriber WASTE: F/P - Black; E - Municipal Trash Bin Ramipril 5 mg, 1 cap, No Longer [place] Route: PO, Drug Active 2018 Medical form: CAP, Center Daily, Dosing Weight 111.6, kg, Start date: 08/17/18 15:30:00 CDT, Duration: 30 day, Stop date: 09/16/18 9:00:00 CDTNotes: (Same as:Altace) Amlodipine 5 mg, 1 tab, No Longer [place] Route: PO, Drug Active 2018 Medical form: TAB, Center Daily, Dosing Weight 111.6, kg, Start date: 08/17/18 15:30:00 CDT, Duration: 30 day, Stop date: 09/16/18 9:00:00 CDTNotes: (Same as: Norvasc) loperamide 2 mg, 10 mL, Inactive [place] Route: PO, Drug 2018 Medical form: LIQ, ONCE, Center PRN Loose Stools, Start date: 08/17/18 14:48:00 CDTNotes: Same as Imodium Imodium A-D EZ 2 mg, Route: Inactive [facility] Chews CHEW, Dosing 2018 Medical Weight 111.6, Center kg, BID, PRN as needed for loose stool, Start date: 08/17/18 13:34:00 CDT, Duration: 30 day, Stop date: 09/16/18 13:33:00 CDT Plavix 75 mg, 1 tab, No Longer [place] Route: PO, Drug Active 2018 Medical form: TAB, Center Daily, Dosing Weight 111.6, kg, Start date: 08/17/18 12:24:00 CDT, Duration: 30 day, Stop date: 09/16/18 9:00:00 CDTNotes: (Same As: Plavix) benzonatate 200 mg, 2 cap, No Longer [place] Route: PO, Drug Active 2018 Medical form: CAP, TID, Center Dosing Weight 111.6, kg, PRN Cough, Start date: 08/17/18 12:18:00 CDT, Duration: 30 day, Stop date: 09/16/18 12:17:00 CDTNotes: (Same As: Drake Hidalgo) "Do Not Crush" Insulin regular 10 unit, 0.1 mL, No Longer [place] Route: SUB-Q, Active 2018 Medical Drug form: Marlys VALERA TID-Before Meals, Dosing Weight 111.6, kg, PRN Blood Glucose Results, Start date: 08/17/18 9:05:00 CDT, Duration: 30 day, Stop date: 09/16/18 9:04:00 CDTNotes: (Same as: Humulin R) Roll in palms of hands gently; Do not shake vigorously. "single patient use only" (Restricted to patients requiring a dose > 60 units) WASTE: F/P - Black; E - Municipal Trash Bin Stable for 28 days at room temperature Expires in days from Da te 3 ML Insulin 40 unit, SUB-Q, No Longer [facility] Glargine 100 Bedtime, # 3 mL, Active 2019 Medical UNT/ML Prefilled 3 Refill(s) [place] Syringe [Lantus] Insulin regular 3 unit, 0.03 mL, Inactive [place] Route: SUB-Q2018 Medical Drug form: Marlys VALERA TID-Before Meals, Dosing Weight 113.636, kg, PRN Blood Glucose Results, Start date: 08/17/18 3:18:00 CDT, Duration: 30 day, Stop date: 09/16/18 3:17:00 CDTNotes: (Same as: Humulin R) Roll in palms of hands gently; Do not shake vigorously. "single patient use only" (Restricted to patients requiring a dose > 60 units) WASTE: F/P - Black; E - Municipal Trash Bin Stable for 28 days at room temperature Expires in days from Da te Dextrose 50% in 12.5 gm, 25 mL, No Longer [place] Water (bolus) IV Route: IVP, Drug Active 2018 Medical Form: INJ, Center Dosing Weight 113.636, kg, PRN, PRN Blood Glucose Results, Start date: 08/17/18 2:18:00 CDT, Duration: 30 day, Stop date: 09/16/18 2:17:00 CDT Glucagon 1 mg, Route: IM, No Longer [facility] Drug form: Active 2019 Medical PDR/INJ, PRN, Center Dosing Weight 113.636, kg, PRN Blood Glucose Results, Start date: 08/17/18 2:18:00 CDT, Duration: 30 day, Stop date: 09/16/18 2:17:00 CDT Bisacodyl 10 mg, 1 supp, No Longer [place] Route: ND, Drug Active 2018 Medical form: SUPP, Center Daily, Dosing Weight 113.636, kg, PRN Constipation, Start date: 08/17/18 1:06:00 CDT, Duration: 30 day, Stop date: 09/16/18 1:05:00 CDTNotes: (Same As: Dulcolax, Bisco-Lax) Labetalol 20 mg, 4 mL, No Longer [place] Route: IVP, Drug Active 2018 Medical form: INJ, Center Q10Min, Dosing Weight 113.636, kg, PRN Hypertension, Start date: 08/16/18 23:38:00 CDT, Duration: 30 day, Stop date: 09/15/18 23:37:00 CDT iodixanol 60 mL, Route: Inactive [place] IVP, Drug Form: 2019 Medical SOLN, Dosing Center Weight 113.636, kg, ONCALL, STAT, Start date: 08/16/18 20:39:00 CDT, Duration: 1 doses or times, Dose=2.2ml/kg, Max [id number] -- "To be infused by Radiology Staff ONLY" metoprolol 25 mg 25 mg, 1 tab, PO Active [facility] oral tablet PO, BID, 60 tab, 2010 Medical Substitution Center Allowed, TAB metoprolol 25 mg, 1 tab, PO No Longer [facility] Route: PO, Drug Active 2010 Medical form: TAB, BID, Center Start date: 03/25/11 9:00:00, Duration: 30 day, Stop date: 04/23/11 17:00:00 hydrALAZINE 10 mg, 0.5 mL, IV No Longer [facility] Route: IV, Drug Active 2010 Medical form: INJ, Q4H, Center PRN Elevated BP, Start date: 03/24/11 18:14:00, Duration: 30 day, Stop date: 04/23/11 18:13:00, Systolic Blood pressure greater than 160 mmHg magnesium sulfate 2 gm, 50 mL, IVPB No Longer [facility] Route: IVPB, Active 2010 Medical Drug form: INJ, Center ONCE, Total dose=2 gm, Start date: 03/24/11 17:59:00, Duration: 1 doses or times, Stop date: 03/24/11 17:59:00 NS 1,000 mL 1,000 mL, Rate: IV No Longer [facility] 100 ml/hr, Active 2010 Medical Infuse over: 10 Center hr, Route: IV, Total Volume: 1,000, Start date: 03/24/11 17:56:00, Duration: 30 day, Stop date: 04/23/11 17:55:00 Novolin N 10 unit, 0.1 mL, SUB-Q No Longer [facility] Route: SUB-Q, Active 2010 Medical Drug form: INJ, Center BID, Start date: 03/24/11 9:00:00, Duration: 30 day, Stop date: 04/22/11 17:00:00 Blaine Thyroid 120 mg, 2 tab, PO No Longer [facility] Route: PO, Drug Active 2010 Medical form: TAB, Center Before Breakfast, Start date: 03/24/11 8:30:00, Duration: 30 day, Stop date: 04/23/11 7:30:00 potassium 40 mEq, 2 tab, PO No Longer [facility] 03/24[facility] chloride Route: PO, Drug Active 2010 Medical form: ERTAB, Center ONCE, Start date: 03/23/11 19:12:00, Stop date: 03/23/11 19:12:00 senna 8.6 mg oral 8.6 mg, 1 tab, PO No Longer [facility] tablet Route: PO, Drug Active 2010 Medical Form: TAB, Center Daily, Start date: 03/23/11 9:00:00, Duration: 30 day, Stop date: 04/21/11 9:00:00 diphenhydrAMINE 25 mg, 1 cap, PO No Longer [facility] Route: PO, Drug Active 2010 Medical form: CAP, Q6H, Center PRN Itching, Start date: 03/23/11 7:37:00, Duration: 30 day, Stop date: 04/22/11 7:36:00 Blaine Thyroid 120 mg, 0.5 tab, PO No Longer [facility] Route: PO, Drug Active 2010 Medical form: TAB, Center Before Breakfast, Start date: 03/23/11 7:30:00, Duration: 30 day, Stop date: 04/21/11 7:30:00 heparin 5,000 unit, 1 SUB-Q No Longer [facility] mL, Route: Active 2010 Medical SUB-Q, Drug Center form: INJ, Q12H, Start date: 03/22/11 21:00:00, Duration: 30 day, Stop date: 04/21/11 9:00:00 Crestor 20 mg, 2 tab, PO No Longer [facility] Route: PO, Drug Active 2010 Medical form: TAB, Center Bedtime, Start date: 03/22/11 21:00:00, Duration: 30 day, Stop date: 04/20/11 21:00:00 Keppra 500 mg 500 mg, 1 tab, PO No Longer [facility] oral tablet Route: PO, Drug Active 2010 Medical form: TAB, Q12H, Center Start date: 03/22/11 21:00:00, Duration: 30 day, Stop date: 04/21/11 9:00:00 Steinauer 5/325 oral 1 tab, Route: PO No Longer [facility] tablet PO, Drug Form: Active 2010 Medical TAB, Q4H, PRN Center Pain, Start date: 03/22/11 17:33:00, Duration: 30 day, Stop date: 04/21/11 17:32:00 1/2NS + KCL 500 mL, Rate: 50 IV No Longer Gopathi [facility] 20mEq/L 1000ml ml/hr, Infuse Active 2010 Medical (Premix) 500 mL over: 10 hr, Center Route: IV, Total Volume: 500, Start date: 03/22/11 17:00:00, Duration: 30 day, Stop date: 04/21/11 16:59:00 magnesium oxide 400 mg, 1 tab, PO No Longer [facility] Route: PO, Drug Active 2010 Medical form: TAB, BID, Center Start date: 03/22/11 17:00:00, Duration: 30 day, Stop date: 04/21/11 9:00:00 metoprolol 12.5 mg, 1 ea, PO No Longer [facility] Route: PO, Drug Active 2010 Medical form: TAB, BID, Center Start date: 03/22/11 17:00:00, Duration: 30 day, Stop date: 04/21/11 9:00:00 docusate sodium 100 mg, 1 cap, PO No Longer [facility] 100 mg oral Route: PO, Drug Active 2010 Medical capsule form: CAP, BID, Center Start date: 03/22/11 17:00:00, Duration: 30 day, Stop date: 04/21/11 9:00:00 1/2NS 1,000 mL 1,000 mL, Rate: IV No Longer [facility] 50 ml/hr, Infuse Active 2010 Medical over: 20 hr, Center Route: IV, Total Volume: 1,000, Start date: 03/22/11 16:57:00, Duration: 30 day, Stop date: 04/21/11 16:56:00 insulin aspart 3 unit, 0.03 mL, SUB-Q No Longer [facility] Route: SUB-Q, Active 2010 Medical Drug form: SOLN, [place] TID-Before Meals, PRN Blood Glucose Results, Start date: 03/22/11 16:28:00, Duration: 30 day, Stop date: 04/21/11 16:27:00 Dextrose 50% 25 gm, 50 mL, IVP No Longer [facility] Syringe Route: IVP, Drug Active 2010 Medical Form: INJ, PRN, Center PRN Blood Glucose Results, Start date: 03/22/11 16:28:00, Duration: 30 day, Stop date: 04/21/11 15:27:00 glucagon 1 mg, Route: IM, IM No Longer [facility] Drug form: Active 2010 Medical PDR/INJ, PRN, Center PRN Blood Glucose Results, Priority: STAT, Start date: 03/22/11 16:28:00, Duration: 30 day, Stop date: 04/21/11 15:27:00 calcium carbonate 500 mg, 1 tab, PO No Longer [facility] Route: PO, Drug Active 2010 Medical form: CHEWTAB, Center TID, PRN as needed for indigestion, Start date: 03/22/11 16:19:00, Duration: 30 day, Stop date: 04/21/11 16:18:00 ondansetron 4 mg, 2 mL, IVP No Longer [facility] Route: IVP, Drug Active 2010 Medical form: INJ, ONCE, Center Priority: STAT, Start date: 03/22/11 10:12:00, Stop date: 03/22/11 10:12:00 morphine Sulfate 4 mg, 1 mL, IVP No Longer [facility] 03/22[facility] Route: IVP, Drug Active 2010 Medical form: INJ, ONCE, Center Priority: STAT, Start date: 03/22/11 10:11:00, Stop date: 03/22/11 10:11:00 magnesium oxide 400 mg, 1 tab, PO Active [facility] Dougie 400 mg oral PO, BID, 4 tab, 2010 Medical tablet Substitution Center Allowed Benadryl 25 mg, 1 cap, PO No Longer Neymar [facility] Route: PO, Drug Active 2010 Medical form: CAP, Q4H, Center PRN Itching, Start date: 03/15/11 6:21:00, Duration: 30 day, Stop date: 04/14/11 6:20:00 trazodone 50 mg 50 mg, 1 tab, PO No Longer Korimiljovany [facility] oral tablet Route: PO, Drug Active 2010 Medical form: TAB, Center Bedtime, Start date: 03/14/11 21:00:00, Duration: 30 day, Stop date: 04/12/11 21:00:00 NS 1,000 mL 1,000 mL, Rate: IV No Longer [facility] 75 ml/hr, Infuse Active 2010 Medical over: 13.3 hr, Center Route: IV, Total Volume: 1,000, Start date: 03/14/11 17:02:00, Duration: 30 day, Stop date: 04/13/11 17:01:00 senna 8.6 mg oral 8.6 mg, 1 tab, PO No Longer Korimilli [facility] tablet Route: PO, Drug Active 2010 Medical Form: TAB, Center Daily, Start date: 03/14/11 9:00:00, Duration: 30 day, Stop date: 04/12/11 9:00:00 metoprolol 12.5 mg, 1 ea, PO No Longer [facility] Route: PO, Drug Active 2010 Medical form: TAB, BID, Center Start date: 03/14/11 9:00:00, Duration: 30 day, Stop date: 04/12/11 17:00:00 Crestor 20 mg, 2 tab, PO No Longer [facility] Route: PO, Drug Active 2010 Medical form: TAB, Center Daily, Start date: 03/14/11 9:00:00, Duration: 30 day, Stop date: 04/12/11 9:00:00 Keppra 500 mg 500 mg, 1 tab, PO No Longer [facility] oral tablet Route: PO, Drug Active 2010 Medical form: TAB, Q12H, Center Start date: 03/14/11 9:00:00, Duration: 30 day, Stop date: 04/12/11 21:00:00 Novolin N 10 unit, 0.1 mL, SUB-Q No Longer [facility] Route: SUB-Q, Active 2010 Medical Drug form: INJ, Center BID, Start date: 03/14/11 9:00:00, Duration: 30 day, Stop date: 04/12/11 17:00:00 docusate sodium 100 mg, 1 cap, PO No Longer [facility] 100 mg oral Route: PO, Drug Active 2010 Medical capsule form: CAP, BID, Center Start date: 03/14/11 9:00:00, Duration: 30 day, Stop date: 04/12/11 17:00:00 calcium carbonate 500 mg, 1 tab, PO No Longer [facility] Route: PO, Drug Active 2010 Medical form: CHEWTAB, Center TID, Start date: 03/14/11 9:00:00, Duration: 30 day, Stop date: 04/12/11 17:00:00 heparin 5,000 unit, 1 SUB-Q No Longer [facility] mL, Route: Active 2010 Medical SUB-Q, Drug Center form: INJ, Q8H, Start date: 03/14/11 8:00:00, Duration: 30 day, Stop date: 04/13/11 0:00:00 ciprofloxacin 750 mg, 3 tab, PO No Longer [facility] Route: PO, Drug Active 2010 Medical form: TAB, Center [id number], Start date: 03/14/11 7:00:00, Duration: 30 day, Stop date: 04/12/11 19:00:00 cefepime 2 gm, Route: IV, IV No Longer [facility] Drug form: INJ, Active 2010 Medical [id number], Start Center date: 03/14/11 7:00:00, Duration: 30 day, Stop date: 04/12/11 23:00:00 Blaine Thyroid 120 mg, 2 tab, PO No Longer [facility] Route: PO, Drug Active 2010 Medical form: TAB, Center [id number], Start date: 03/14/11 6:45:00, Duration: 30 day, Stop date: 04/13/11 6:30:00 glucagon 1 mg, Route: IM, IM No Longer [facility] Drug form: Active 2010 Medical PDR/INJ, PRN, Center PRN Blood Glucose Results, Priority: STAT, Start date: 03/14/11 6:06:00, Duration: 30 day, Stop date: 04/13/11 5:05:00 Dextrose 50% 25 gm, 50 mL, IVP No Longer [facility] Syringe Route: IVP, Drug Active 2010 Medical Form: INJ, PRN, Center PRN Blood Glucose Results, Start date: 03/14/11 6:06:00, Duration: 30 day, Stop date: 04/13/11 5:05:00 insulin aspart 4 unit, 0.04 mL, SUB-Q No Longer [facility] Route: SUB-Q, Active 2010 Medical Drug form: SOLN, Center TID-Before Meals, PRN Blood Glucose Results, Start date: 03/14/11 6:06:00, Duration: 30 day, Stop date: 04/13/11 6:05:00 Steinauer 5/325 oral 1 tab, Route: PO No Longer [facility] tablet PO, Drug Form: Active 2010 Medical TAB, Q4H, PRN as Center needed for pain, Start date: 03/14/11 6:02:00, Duration: 30 day, Stop date: 04/13/11 6:01:00 magnesium sulfate 2 gm, 50 mL, IVPB No Longer [facility] Route: IVPB, Active 2010 Medical Drug form: INJ, Center ONCE, Total dose=2 gm, Start date: 03/14/11 6:01:00, Duration: 1 doses or times, Stop date: 03/14/11 6:01:00 Sodium Chloride 1,000 mL, Rate: IV No Longer [facility] 0.9% (Bolus) IV 1,000 ml/hr, Active 2010 Medical 1,000 mL Infuse over: 1 Center hr, Route: IV, Total Volume: 1,000, Bolus Dose, Priority: STAT, Start date: 03/14/11 4:12:00, Duration: 1 doses or times, Stop date: 03/14/11 5:11:00 Maxipime 2 gm, Route: IVPB No Longer [facility] IVPB, Drug form: Active 2010 Medical INJ, ONCE, Start Center date: 03/13/11 23:52:00, Stop date: 03/13/11 23:52:00 Cipro 750 mg, 3 tab, PO No Longer [facility] Route: PO, Drug Active 2010 Medical form: TAB, ONCE, Center Start date: 03/13/11 23:51:00, Stop date: 03/13/11 23:51:00 Sodium Chloride 1,000 mL, Rate: IV No Longer [facility] 0.9% (Bolus) IV 1,000 ml/hr, Active 2010 Medical 1,000 mL Infuse over: 1 Center hr, Route: IV, Total Volume: 1,000, Bolus Dose, Priority: STAT, Start date: 03/13/11 23:20:00, Duration: 1 doses or times, Stop date: 03/14/11 0:19:00 morphine Sulfate 4 mg, 1 mL, IVP No Longer Daft[facility] Route: IVP, Drug Active 2010 Medical form: INJ, ONCE, Center Priority: STAT, Start date: 03/13/11 22:47:00, Stop date: 03/13/11 22:47:00 Lasix Substitution No Longer [facility] Allowed Active 2010 [facility] metFORmin Substitution No Longer [facility] Allowed Active 2010 [facility] metoprolol 12.5 mg, 1 ea, PO No Longer [facility] Route: PO, Drug Active 2010 Medical form: TAB, BID, Center Start date: 03/06/11 20:00:00, Duration: 30 day, Stop date: 04/05/11 8:00:00 metoprolol 25 mg 12.5 mg, 0.5 ea, PO Active [facility] oral tablet PO, BID, 60 tab, 2010 [facility] Substitution Center Allowed, TAB trazodone 50 mg 50 mg, 1 tab, PO Active Riz[facility] [employer] oral tablet PO, Bedtime, 40 2010 Medical tab, Center Substitution Allowed, TAB Steinauer 5/325 oral 1 tab, PO, Q4H, PO Active [facility] 03/06[facility] tablet PRN, 40 tab, 2010 Medical Pain, [place] Substitution Allowed, Maintenance, TAB Novolin N 100 10 unit, SUB-Q, SUB-Q Active [facility] units/mL BID, 10 ml, 2010 Medical subcutaneous Substitution Center injection Allowed, SUSP Blaine Thyroid 60 120 mg, 2 tab, PO Active [facility] [place] mg oral tablet PO, Before 2010 Medical Breakfast, 60 Center tab, Substitution Allowed, TAB Keppra 500 mg 500 mg, 1 tab, PO Active [facility] 03/06[facility] [place] oral tablet PO, Q12H, 60 2010 Medical tab, Center Substitution Allowed, TAB Crestor 20 mg 20 mg, 1 tab, PO Active [facility] 03/06[facility] [place] oral tablet PO, Daily, 30 2010 Medical tab, Center Substitution Allowed, TAB senna 8.6 mg oral 8.6 mg, 1 tab, PO Active [facility] 03/06[facility] [place] tablet PO, Daily, 30 2010 Medical tab, Center Substitution Allowed, Maintenance, TAB docusate sodium 100 mg, 1 cap, PO Active [facility] 100 mg oral PO, BID, 30 cap, 2010 Medical capsule Substitution Center Allowed, CAP ciprofloxacin 250 750 mg, 3 tab, PO Active R[facility] mg oral tablet PO, Q12H, 40 2010 Medical doses or times, Center Substitution Allowed, TAB Maxipime 2 g 2 gm, IV, Q8H, IV Active [facility] injection 60 doses or 2010 Medical times, Center Substitution Allowed calcium carbonate 500 mg, 1 tab, PO Active [facility] 500 mg oral PO, TID, PRN, 30 2010 Medical tablet, chewable tab, as needed Center for indigestion, Substitution Allowed, CHEWTAB Lasix 10 mg, 0.5 tab, PO No Longer [facility] Route: PO, Drug Active 2010 Medical form: TAB, Center Daily, Start date: 03/06/11 8:00:00, Duration: 30 day, Stop date: 04/04/11 8:00:00 Norvasc 5 mg, Route: PO, PO No Longer [facility] Daily, Start Active 2010 Medical date: 03/02/11 Center 8:00:00, Duration: 30 day, Stop date: 03/31/11 8:00:00 trazodone 50 mg 50 mg, 1 tab, PO No Longer [facility] oral tablet Route: PO, Drug Active 2010 Medical form: TAB, Center Bedtime, Start date: 02/27/11 21:00:00, Duration: 30 day, Stop date: 03/28/11 21:00:00 calcium carbonate 500 mg, 1 tab, PO No Longer [facility] Route: PO, Drug Active 2010 Medical form: TAB, TID, Center Start date: 02/27/11 8:00:00, Duration: 7 day, Stop date: 03/05/11 17:00:00 senna 8.6 mg, 1 tab, PO No Longer [facility] 02/27[facility] Route: PO, Drug Active 2010 Medical Form: TAB, Center Daily, Start date: 02/27/11 8:00:00, Duration: 30 day, Stop date: 03/28/11 8:00:00 Lasix 40 mg oral 20 mg, 0.5 tab, PO No Longer R[facility] tablet Route: PO, Drug Active 2010 Medical form: TAB, Center Daily, Start date: 02/27/11 8:00:00, Stop date: 03/28/11 8:00:00 Blaine Thyroid 120 mg, 2 tab, PO No Longer [facility] Route: PO, Drug Active 2010 Medical form: TAB, Center Before Breakfast, Start date: 02/27/11 6:30:00, Duration: 30 day, Stop date: 03/28/11 6:30:00 Insulin regular 5 unit, 0.05 mL, SUB-Q No Longer [facility] Route: SUB-Q, Active 2010 Medical Drug form: SOLN, Center TID-Before Meals, Start date: 02/27/11 6:30:00, Stop date: 03/28/11 16:30:00 heparin 5000 5,000 unit, 1 SUB-Q No Longer [facility] units/mL mL, Route: Active 2010 Medical injectable SUB-Q, Drug Center solution form: INJ, Q8H, Start date: 02/27/11 0:00:00, Duration: 30 day, Stop date: 03/28/11 16:00:00 hydrALAZINE 25 mg 25 mg, 1 tab, PO No Longer [facility] oral tablet Route: PO, Drug Active 2010 Medical form: TAB, Q8H, Center Start date: 02/27/11 0:00:00, Duration: 30 day, Stop date: 03/28/11 16:00:00 ciprofloxacin 750 mg, 3 tab, PO No Longer [facility] Route: PO, Drug Active 2010 Medical form: TAB, Q12H, Center Priority: Routine, Start date: 02/26/11 23:00:00, Duration: 30 day, Stop date: 03/28/11 11:00:00 Crestor 20 mg, 2 tab, PO No Longer [facility] Route: PO, Drug Active 2010 Medical form: TAB, Center Daily, Start date: 02/26/11 21:00:00, Duration: 30 day, Stop date: 03/27/11 21:00:00 levetiracetam 500 mg, 1 tab, PO No Longer [facility] Route: PO, Drug Active 2010 Medical form: TAB, Q12H, Center Start date: 02/26/11 21:00:00, Duration: 30 day, Stop date: 03/28/11 9:00:00 magnesium oxide 400 mg, 1 tab, PO No Longer [facility] Route: PO, Drug Active 2010 Medical form: TAB, BID, Center Start date: 02/26/11 20:00:00, Duration: 5 day, Stop date: 03/03/11 8:00:00 insulin 10 unit, 0.1 mL, SUB-Q No Longer [facility] isophane-NPH Route: SUB-Q, Active 2010 Medical Drug form: INJ, Center BID, Start date: 02/26/11 20:00:00, Duration: 30 day, Stop date: 03/28/11 8:00:00 docusate sodium 100 mg, 1 cap, PO No Longer [facility] 100 mg oral Route: PO, Drug Active 2010 Medical capsule form: CAP, BID, Center Start date: 02/26/11 20:00:00, Duration: 30 day, Stop date: 03/28/11 8:00:00 Prinivil 20 mg, 1 tab, PO No Longer [facility] Route: PO, Drug Active 2010 Medical form: TAB, BID, Center Start date: 02/26/11 20:00:00, Stop date: 03/28/11 8:00:00 cefepime 2 gm, Route: IVPB No Longer [facility] IVPB, Drug form: Active 2010 Medical INJ, ABXQ8H, Center Start date: 02/26/11 18:00:00, Duration: 30 day, Stop date: 03/28/11 10:00:00 ondansetron 4 mg, 2 mL, IVP No Longer [facility] Route: IVP, Drug Active 2010 Medical form: INJ, ONCE, Center PRN Nausea & Vomiting, Start date: 02/26/11 17:39:00 Saline Flush 0.9% 5 ml, Route: IVP No Longer [facility] IVP, Drug Form: Active 2010 Medical INJ, PRN, PRN [place] Flush, Start date: 02/26/11 17:39:00, Duration: 30 day, Stop date: 03/28/11 17:38:00 calcium carbonate 500 mg, 1 tab, CHEW No Longer [facility] Route: CHEW, Active 2010 Medical Drug form: Center CHEWTAB, TID, PRN Indigestion, Start date: 02/26/11 17:39:00, Duration: 30 day, Stop date: 03/28/11 17:38:00 Steinauer 5/325 oral 1 tab, Route: PO No Longer [facility] tablet PO, Drug Form: Active 2010 Medical TAB, Q4H, PRN Center Pain, Start date: 02/26/11 17:39:00, Duration: 30 day, Stop date: 03/28/11 17:38:00 acetaminophen 650 mg, 20.3 mL, PO No Longer [facility] Route: PO, Drug Active 2010 Medical form: LIQ, Q4H, Center PRN Fever, Start date: 02/26/11 17:39:00, Duration: 30 day, Stop date: 03/28/11 17:38:00 Steinauer 7.5/325 1 tab, Route: PO No Longer [facility] oral tablet PO, Drug Form: Active 2010 Medical TAB, Q4H, PRN Center Pain, Start date: 02/26/11 17:39:00, Duration: 30 day, Stop date: 03/28/11 17:38:00 Insulin regular 2 unit, 0.02 mL, SUB-Q No Longer [facility] Route: SUB-Q, Active 2010 Medical Drug form: SOLN, [place] TID-Before Meals, PRN Blood Glucose Results, Start date: 02/26/11 17:39:00, Duration: 30 day, Stop date: 03/28/11 17:38:00 Blaine Thyroid 60 120 mg, 2 tab, PO Active [facility] [place] mg oral tablet PO, Before 2010 Medical Breakfast, Center tab, Substitution Allowed, TAB senna 8.6 mg oral 8.6 mg, 1 tab, PO Active [facility] [place] tablet PO, Daily, 2010 Medical tab, Center Substitution Allowed, Maintenance, TAB Crestor 10 mg 20 mg, 2 tab, PO Active [facility] 02/26[facility] oral tablet PO, Daily, 30 2010 Medical tab, Center Substitution Allowed, TAB Prinivil 10 mg 10 mg, 1 tab, PO Active [facility] 02/26[facility] oral tablet PO, BID, 30 tab, 2010 Medical Substitution Center Allowed, TAB levetiracetam 500 500 mg, 1 tab, PO Active [facility] 02/26[facility] [place] mg oral tablet PO, Q12H, 30 2010 Medical tab, Center Substitution Allowed, TAB hydrALAZINE 25 mg 25 mg, 1 tab, PO Active [facility] 02/26[facility] oral tablet PO, Q8H, 30 tab, 2010 Medical Substitution Center Allowed, TAB heparin 5000 5000 units, SUB-Q Active [facility] 02/26[facility] units/mL SUB-Q, Q8H, 30 2010 Medical injectable doses or times, Center solution Substitution Allowed, SOLN Lasix 40 mg oral 40 mg, 1 tab, PO Active [facility] 02/26[facility] tablet PO, Daily, 30 2010 Medical tab, Center Substitution Allowed, TAB docusate sodium 100 mg, 1 cap, PO Active [facility] 02/26[facility] [place] 100 mg oral PO, BID, 30 cap, 2010 Medical capsule Substitution Center Allowed, CAP ciprofloxacin 250 750 mg, 3 tab, PO Active [facility] 02/26[facility] mg oral tablet PO, Q12H, 30 2010 Medical doses or times, Center Substitution Allowed, TAB Maxipime 2 g 2 gm, IV, Q8H, 1 IV Active [facility] 02/26[facility] injection doses or times, 2010 Medical Substitution Center Allowed calcium carbonate 500 mg, 1 tab, PO Active [facility] 02/26[facility] [place] 500 mg oral PO, TID, 30 tab, 2010 Medical tablet, chewable Substitution Center Allowed, CHEWTAB Fleet Enema 133 ml, Route: ND No Longer [facility] ND, Drug Form: Active 2010 Medical JEANNIE, ONCE, Center Start date: 02/24/11 14:38:00, Stop date: 02/24/11 14:38:00 bisacodyl 10 mg, 1 supp, ND No Longer [facility] 02/24[facility] Route: ND, Drug Active 2010 Medical form: SUPP, Center ONCE, Start date: 02/24/11 14:38:00, Stop date: 02/24/11 14:38:00 magnesium citrate 300 ml, Route: PO No Longer [facility] PO, Drug Form: Active 2010 Medical LIQ, ONCE, Start Center date: 02/24/11 13:03:00, Stop date: 02/24/11 13:03:00 calcium carbonate 500 mg, 1 tab, PO No Longer [facility] Route: PO, Drug Active 2010 Medical form: TAB, TID, Center Start date: 02/24/11 13:00:00, Duration: 7 day, Stop date: 03/03/11 9:00:00 lisinopril 10 mg, 1 tab, PO No Longer [facility] Route: PO, Drug Active 2010 Medical form: TAB, ONCE, Center Priority: NOW, Start date: 02/24/11 11:02:00, Stop date: 02/24/11 11:02:00 lisinopril 10 mg, Route: PO No Longer [facility] PO, ONCE, Start Active 2010 Medical date: 02/24/11 Center 11:01:00, Stop date: 02/24/11 11:01:00 Insulin regular 3 unit, 0.03 mL, SUB-Q No Longer [facility] Route: SUB-Q, Active 2010 Medical Drug form: SOLN, Center TID-Before Meals, Start date: 02/23/11 16:30:00, Duration: 30 day, Stop date: 03/25/11 11:30:00 ciprofloxacin 750 mg, 3 tab, PO No Longer [facility] Route: PO, Drug Active 2010 Medical form: TAB, Q12H, Center Priority: Routine, Start date: 02/23/11 13:00:00, Duration: 30 day, Stop date: 03/25/11 11:00:00 insulin 10 unit, 0.1 mL, SUB-Q No Longer [facility] isophane-NPH Route: SUB-Q, Active 2010 Medical Drug form: INJ, Center BID, Start date: 02/21/11 17:00:00, Stop date: 03/23/11 9:00:00 magnesium oxide 400 mg, 1 tab, PO No Longer [facility] Route: PO, Drug Active 2010 Medical form: TAB, BID, Center Start date: 02/21/11 17:00:00, Duration: 5 day, Stop date: 02/26/11 9:00:00 calcium carbonate 500 mg, 1 tab, CHEW No Longer [facility] Route: CHEW, Active 2010 Medical Drug form: Center CHEWTAB, TID, PRN Indigestion, Start date: 02/21/11 14:26:00, Duration: 30 day, Stop date: 03/23/11 14:25:00 cefepime 2 gm, Route: IVPB No Longer [facility] IVPB, Drug form: Active 2010 Medical INJ, ABXQ8H, Center Start date: 02/20/11 18:00:00, Stop date: 03/22/11 10:00:00 Lasix 40 mg oral 40 mg, 1 tab, PO No Longer [facility] tablet Route: PO, Drug Active 2010 Medical form: TAB, Center Daily, Start date: 02/20/11 17:00:00, Stop date: 03/22/11 9:00:00 heparin 5000 5,000 unit, 1 SUB-Q No Longer [facility] units/mL mL, Route: Active 2010 Medical injectable SUB-Q, Drug Center solution form: INJ, Q8H, Start date: 02/20/11 16:00:00, Duration: 30 day, Stop date: 03/22/11 8:00:00 Steinauer 7.5/325 1 tab, Route: PO No Longer [facility] oral tablet PO, Drug Form: Active 2010 Medical TAB, Q4H, PRN Center Pain, Start date: 02/20/11 11:07:00, Duration: 30 day, Stop date: 03/22/11 11:06:00 Crestor 20 mg, 2 tab, PO No Longer [facility] Route: PO, Drug Active 2010 Medical form: TAB, Center Daily, Start date: 02/20/11 9:00:00, Duration: 30 day, Stop date: 03/21/11 9:00:00 senna 8.6 mg, 1 tab, PO No Longer [facility] [place] Route: PO, Drug Active 2010 Medical Form: TAB, Center Daily, Start date: 02/20/11 9:00:00, Duration: 30 day, Stop date: 03/21/11 9:00:00 Blaine Thyroid 120 mg, 2 tab, PO No Longer [facility] [place] Route: PO, Drug Active 2010 Medical form: TAB, Center Before Breakfast, Start date: 02/20/11 7:30:00, Duration: 30 day, Stop date: 03/21/11 7:30:00 vancomycin 1 gm, Route: IVPB No Longer [facility] [place] IVPB, Drug form: Active 2010 Medical INJ, [id number], Center Priority: NOW, Start date: 02/20/11 6:44:00, Duration: 30 day, Stop date: 03/21/11 22:44:00 magnesium sulfate 2 gm, 50 mL, IVPB No Longer [facility] [place] Route: IVPB, Active 2010 Medical Drug form: INJ, Center Q2H, Start date: 02/20/11 5:00:00, Duration: 2 doses or times, Stop date: 02/20/11 7:00:00 potassium 20 mEq, 100 mL, IVPB No Longer [facility] [place] chloride Route: IVPB, Active 2010 Medical Q2H, Start date: Center 02/20/11 4:00:00, Duration: 2 doses or times, Stop date: 02/20/11 6:00:00 magnesium sulfate 4 gm, 100 mL, IVPB No Longer [facility] [place] Route: IVPB, Active 2010 Medical Drug form: INJ, Center ONCE, Start date: 02/20/11 4:00:00, Stop date: 02/20/11 4:00:00 labetalol 5 mg, 1 mL, IV No Longer [facility] [place] Route: IV, Drug Active 2010 Medical form: INJ, Center Q10Min, PRN Hypertension, Start date: 02/20/11 1:56:00, Duration: 30 day, Stop date: 03/22/11 1:55:00 NS 500 mL 500 mL, Rate: IV No Longer [facility] 1,000 ml/hr, Active 2010 Medical Infuse over: 0.5 Center hr, Route: IV, Total Volume: 500, Start date: 02/19/11 22:07:00, Duration: 1 doses or times, Stop date: 02/19/11 22:36:00, Bolus DoseBolus Dose calcium chloride 1,000 mg, 10 mL, IV No Longer [facility] Route: IV, Drug Active 2010 Medical form: INJ, ONCE, Center Start date: 02/19/11 21:18:00, Stop date: 02/19/11 21:18:00 Tylenol 650 mg, 2 tab, PO No Longer [facility] Route: PO, Drug Active 2010 Medical form: TAB, Q4H, [place] PRN Fever, Start date: 02/19/11 21:13:00, Duration: 30 day, Stop date: 03/21/11 21:12:00 levetiracetam 500 mg, 1 tab, PO No Longer [facility] Route: PO, Drug Active 2010 Medical form: TAB, Q12H, Center Start date: 02/19/11 21:00:00, Duration: 30 day, Stop date: 03/21/11 9:00:00 acetaminophen 650 mg, 20.3 mL, PO No Longer [facility] Route: PO, Drug Active 2010 Medical form: LIQ, Q4H, [place] PRN Fever, Start date: 02/19/11 20:04:00, Duration: 30 day, Stop date: 03/21/11 20:03:00 Prinivil 10 mg, 1 tab, PO No Longer [facility] Route: PO, Drug Active 2010 Medical form: TAB, BID, Center Start date: 02/19/11 17:00:00, Duration: 30 day, Stop date: 03/20/11 17:00:00 hydrALAZINE 25 mg 25 mg, 1 tab, PO No Longer [facility] oral tablet Route: PO, Drug Active 2010 Medical form: TAB, Q8H, Center Start date: 02/19/11 17:00:00, Stop date: 03/21/11 8:00:00 docusate sodium 100 mg, 1 cap, PO No Longer [facility] 100 mg oral Route: PO, Drug Active 2010 Medical capsule form: CAP, BID, Center Start date: 02/19/11 17:00:00, Duration: 30 day, Stop date: 03/21/11 9:00:00 Steinauer 5/325 oral 1 tab, Route: PO No Longer [facility] tablet PO, Drug Form: Active 2010 Medical TAB, Q4H, PRN Center Pain, Start date: 02/19/11 16:14:00, Duration: 30 day, Stop date: 03/21/11 16:13:00 ciprofloxacin 400 mg, 200 mL, IVPB No Longer [facility] Route: IVPB, Active 2010 Medical Drug form: INJ, [place] [id number], Priority: NOW, Start date: 02/19/11 16:10:00, Duration: 30 day, Stop date: 03/21/11 4:10:00 vancomycin 2 gm, Route: IVPB No Longer [facility] IVPB, ONCE, Active 2010 Medical Priority: STAT, Center Start date: 02/19/11 16:02:00, Stop date: 02/19/11 16:02:00 Insulin regular 100 mL, Rate: IVPB No Longer [facility] [place] 100 unit + Sodium Start at 0.05 Active 2010 Medical Chloride 0.9% units/kg/hour-, Center (titrate) 100 mL Route: IVPB, Total Volume: 100, Duration: 30 day, Stop date: 03/21/11 15:56:00, Replace Every: 24 hr Sodium Chloride 1,000 mL, Rate: IV No Longer [facility] 0.9% IV 1,000 mL 75 ml/hr, Infuse Active 2010 Medical over: 13.3 hr, Center Route: IV, Total Volume: 1,000, Start date: 02/19/11 15:56:00, Stop date: 03/21/11 15:55:00 insulin regular 7 unit, 0.07 mL, SUB-Q No Longer [facility] human recombinant Route: SUB-Q, Active 2010 Medical 100 units/mL Drug form: SOLN, [place] injectable PRN, PRN solution Abnormal Lab Result, Start date: 02/19/11 15:51:00, Duration: 30 day, Stop date: 03/21/11 15:50:00 Dextrose 50% 6.25 gm, 12.5 IVP No Longer [facility] Syringe mL, Route: IVP, Active 2010 Medical Drug Form: INJ, Center PRN, PRN Abnormal Lab Result, Start date: 02/19/11 15:51:00, Duration: 30 day, Stop date: 03/21/11 15:50:00 Saline Flush 0.9% 5 ml, Route: IVP No Longer [facility] [place] IVP, Drug Form: Active 2010 Medical INJ, PRN, PRN [place] Flush, Start date: 02/19/11 15:51:00, Duration: 30 day, Stop date: 03/21/11 15:50:00 morphine Sulfate 2 mg, 1 mL, IVP No Longer [facility] Route: IVP, Drug Active 2010 Medical form: INJ, Q1H, Center PRN Pain Score 7-10, Start date: 02/19/11 15:51:00, Duration: 30 day, Stop date: 03/21/11 15:50:00 flumazenil 0.2 mg, 2 mL, IVP No Longer [facility] Route: IVP, Drug Active 2010 Medical form: INJ, PRN, Center PRN Other -See Comment, Initial dose, Start date: 02/19/11 14:18:00, Duration: 30 day, Stop date: 03/21/11 14:17:00 naloxone 0.04 mg, 0.1 mL, IVP No Longer [facility] Route: IVP, Drug Active 2010 Medical form: INJ, Center Q2MIN, PRN Narcotic Reversal, Start date: 02/19/11 14:18:00, Duration: 8 doses or times, Stop date: 02/20/11 14:18:00 hydromorphone 0.3 mg, 0.15 mL, IVP No Longer [facility] Route: IVP, Drug Active 2010 Medical form: INJ, Center Q5Min, PRN Pain, Start date: 02/19/11 14:18:00, Duration: 5 doses or times, Stop date: Limited # of times ondansetron 4 mg, 2 mL, IVP No Longer [facility] Route: IVP, Drug Active 2010 Medical form: INJ, ONCE, Center PRN Nausea & Vomiting, Start date: 02/19/11 14:18:00 labetalol 5 mg, 1 mL, IVP No Longer [facility] Route: IVP, Drug Active 2010 Medical form: INJ, Center Q5Min, PRN Elevated BP, Start date: 02/19/11 14:18:00, Duration: 5 doses or times, Stop date: 02/20/11 0:00:00 vancomycin 1 gm, Route: IVPB No Longer [facility] IVPB, Drug form: Active 2010 Medical INJ, [id number], Center Start date: 02/19/11 14:00:00, Duration: 30 day, Stop date: 03/21/11 2:00:00 ondansetron 2 4 mg, 2 mL, IVP, IVP Active [facility] mg/mL injectable Q8H, PRN, 30 mL, 2010 Medical solution Nausea & Center Vomiting, Substitution Allowed, SOLN Milk of Magnesia 1.2 gm, 5 mL, PO Active [facility] 24% oral PO, Daily, PRN, 2010 Medical concentrate 150 mL, Center Constipation, Substitution Allowed, Maintenance, CONC Prinivil 10 mg 10 mg, 1 tab, PO Active [facility] oral tablet PO, QPM, 30 tab, 2010 Medical Substitution Center Allowed, TAB Keppra 500 mg 500 mg, 1 tab, PO Active [facility] oral tablet PO, Q12H, 60 2010 Medical tab, Center Substitution Allowed, TAB Humulin N Pen 100 10 unit, SUB-Q, SUB-Q Active [facility] units/mL BID, 3 ml, 2010 Medical subcutaneous Substitution Center injection Allowed, SUSP Humulin N Pen 100 10 unit, SUB-Q, SUB-Q Active [facility] units/mL BID, 3 ml, 2010 Medical subcutaneous Substitution Center injection Allowed, SUSP hydrALAZINE 25 mg 25 mg, 1 tab, PO Active [facility] oral tablet PO, BID, 60 tab, 2010 Medical Substitution Center Allowed, TAB bisacodyl 10 mg 10 mg, 1 supp, ND Active [facility] rectal ND, Bedtime, 2010 Medical suppository PRN, 30 supp, [place] Constipation, Substitution Allowed, SUPP Steinauer 5/325 oral 1 tab, PO, Q4H, PO Active [facility] tablet PRN, 30 tab, as 2010 Medical needed for pain, Center Substitution Allowed, Maintenance, TAB [place] Thyroid 120 mg, 1 tab, PO Active [facility] [place] 120 mg oral PO, Daily, 30 2010 Medical tablet tab, Center Substitution Allowed, TAB Crestor 20 mg 20 mg, 1 tab, PO Active [facility] [place] oral tablet PO, Daily, 30 2010 Medical tab, Center Substitution Allowed, TAB metFORmin 500 mg 500 mg, 1 tab, PO Active [facility] oral tablet PO, Q8H, 90 tab, 2010 Medical Substitution Center Allowed, TAB normal saline 1,000 mL, Rate: IV No Longer [facility] [place] 0.9% IV 1,000 mL 100 ml/hr, Active 2010 Medical Infuse over: 10 Center hr, Route: IV, Total Volume: 1,000, Start date: 02/18/11 11:29:00, Duration: 30 day, Stop date: 03/20/11 11:28:00 potassium 25 mEq, No Longer [place] bicarbonate 25 Substitution Active 2010 Medical mEq oral tablet, Allowed Center effervescent potassium 40 mEq, 30 mL, PO No Longer [facility] [place] chloride Route: PO, Drug Active 2010 Medical form: LIQ, Center Daily, Start date: 02/12/11 11:00:00, Duration: 30 day, Stop date: 03/14/11 8:00:00 Kayexalate 15 gm, 60 mL, PO No Longer [facility] Route: PO, Drug Active 2010 Medical form: SUSP, Center ONCE, Start date: 02/11/11 21:17:00, Stop date: 02/11/11 21:17:00 Kayexalate 30 gm, 120 mL, PO No Longer [facility] Route: PO, Drug Active 2010 Medical form: SUSP, Center ONCE, Start date: 02/11/11 17:22:00, Stop date: 02/11/11 17:22:00 NS (Bolus) IV 1,000 mL, Rate: IV No Longer [facility] 1,000 mL 1,000 ml/hr, Active 2010 Medical Infuse over: 1 Center hr, Route: IV, Total Volume: 1,000, Priority: STAT, Start date: 02/11/11 8:37:00, Duration: 1 doses or times, Stop date: 02/11/11 9:36:00, Bolus DoseBolus Dose dexamethasone 1 mg, 1 tab, PO No Longer [facility] Route: PO, Drug Active 2010 Medical form: TAB, Center Daily, Start date: 02/11/11 8:00:00, Duration: 2 day, Stop date: 02/12/11 8:00:00 Fleet Enema 133 ml, Route: ND No Longer [facility] ND, Drug Form: Active 2010 Medical JEANNIE, ONCE, Center Start date: 02/10/11 14:15:00, Stop date: 02/10/11 14:15:00 bisacodyl 10 mg, 1 supp, ND No Longer [facility] Route: ND, Drug Active 2010 Medical form: SUPP, Center ONCE, Start date: 02/10/11 14:15:00, Stop date: 02/10/11 14:15:00 dexamethasone 1 mg, 1 tab, PO No Longer [facility] Route: PO, Drug Active 2010 Medical form: TAB, BID, Center Start date: 02/09/11 8:00:00, Duration: 2 day, Stop date: 02/10/11 20:00:00 Xylocaine Jelly 1 appl, Route: TOP No Longer [facility] 2% topical gel TOP, Q6H, Drug Active 2010 Medical with applicator form: GEL PRN Center Pain, Start date: 02/08/11 16:04:00, Duration: 30 day, Stop date: 03/10/11 16:03:00 dexamethasone 1 mg, 1 tab, PO No Longer [facility] Route: PO, Drug Active 2010 Medical form: TAB, TID, Center Start date: 02/07/11 8:00:00, Duration: 2 day, Stop date: 02/08/11 17:00:00 Prinivil 10 mg, 1 tab, PO No Longer [facility] Route: PO, Drug Active 2010 Medical form: TAB, QPM, Center Start date: 02/06/11 17:00:00, Duration: 30 day, Stop date: 03/07/11 17:00:00 dexamethasone 2 mg, 1 tab, PO No Longer [facility] Route: PO, Drug Active 2010 Medical form: TAB, TID, Center Start date: 02/05/11 8:00:00, Duration: 2 day, Stop date: 02/06/11 17:00:00 lisinopril 10 mg, 1 tab, PO No Longer [facility] Route: PO, Drug Active 2010 Medical form: TAB, QPM, Center Start date: 02/04/11 8:00:00, Duration: 30 day, Stop date: 03/05/11 17:00:00 insulin 8 unit, 0.08 mL, SUB-Q No Longer [facility] isophane-NPH Route: SUB-Q, Active 2010 Medical Drug form: INJ, Center Before Breakfast, Start date: 02/04/11 6:30:00, Stop date: 03/05/11 6:30:00 insulin 8 unit, 0.08 mL, SUB-Q No Longer [facility] isophane-NPH Route: SUB-Q, Active 2010 Medical Drug form: INJ, Center Bedtime, Start date: 02/03/11 21:00:00, Stop date: 03/04/11 21:00:00 potassium 40 mEq, 2 tab, PO No Longer [facility] chloride 20 mEq Route: PO, Drug Active 2010 Medical oral tablet, form: ERTAB, Center extended release ONCE, Start date: 02/03/11 14:29:00, Stop date: 02/03/11 14:29:00 potassium 40 mEq, 2 tab, PO No Longer [facility] chloride 20 mEq Route: PO, Drug Active 2010 Medical oral tablet, form: ERTAB, Center extended release Daily, Start date: 02/03/11 9:00:00, Stop date: 03/05/11 8:00:00 dexamethasone 3 mg, 1.5 tab, PO No Longer [facility] Route: PO, Drug Active 2010 Medical form: TAB, TID, Center Start date: 02/03/11 8:00:00, Duration: 2 day, Stop date: 02/04/11 17:00:00 insulin 15 unit, 0.15 SUB-Q No Longer [facility] isophane-NPH mL, Route: Active 2010 Medical SUB-Q, Drug Center form: INJ, Q24H, Start date: 02/03/11 0:00:00, Duration: 30 day, Stop date: 03/04/11 0:00:00 Keppra 500 mg, 1 tab, PO No Longer [facility] Route: PO, Drug Active 2010 Medical form: TAB, Q12H, Center Start date: 02/02/11 21:00:00, Duration: 30 day, Stop date: 03/04/11 9:00:00 hydrALAZINE 25 mg 25 mg, 1 tab, PO No Longer [facility] oral tablet Route: PO, Drug Active 2010 Medical form: TAB, BID, Center Start date: 02/01/11 17:00:00, Stop date: 03/03/11 8:00:00 heparin 5,000 unit, 1 SUB-Q No Longer [facility] mL, Route: Active 2010 Medical SUB-Q, Drug Center form: INJ, Q8H, Start date: 02/01/11 16:00:00, Duration: 30 day, Stop date: 03/03/11 8:00:00 Kayexalate 15 gm, 60 mL, PO No Longer [facility] Route: PO, Drug Active 2010 Medical form: SUSP, Center ONCE, Start date: 02/01/11 13:19:00, Stop date: 02/01/11 13:19:00 potassium 20 mEq, 1 tab, PO No Longer [facility] chloride 20 mEq Route: PO, Drug Active 2010 Medical oral tablet, form: ERTAB, Center extended release Daily, Start date: 02/01/11 9:00:00, Duration: 30 day, Stop date: 03/02/11 9:00:00 Crestor 20 mg, 2 tab, PO No Longer [facility] Route: PO, Drug Active 2010 Medical form: TAB, Center Daily, Start date: 02/01/11 9:00:00, Duration: 30 day, Stop date: 03/02/11 9:00:00 Lasix 40 mg oral 80 mg, 2 tab, PO No Longer [facility] tablet Route: PO, Drug Active 2010 Medical form: TAB, Center Daily, Start date: 02/01/11 9:00:00, Duration: 30 day, Stop date: 03/02/11 9:00:00 atenolol 50 mg 50 mg, 1 tab, PO No Longer [facility] oral tablet Route: PO, Drug Active 2010 Medical form: TAB, Center Daily, Start date: 02/01/11 9:00:00, Duration: 30 day, Stop date: 03/02/11 9:00:00 Blaine Thyroid 120 mg, 2 tab, PO No Longer [facility] Route: PO, Drug Active 2010 Medical form: TAB, Center Daily, Start date: 02/01/11 9:00:00, Duration: 30 day, Stop date: 03/02/11 9:00:00 dexamethasone 4 mg, 1 tab, PO No Longer [facility] Route: PO, Drug Active 2010 Medical form: TAB, Q8H, Center Start date: 02/01/11 0:00:00, Duration: 2 day, Stop date: 02/02/11 16:00:00 Humulin N 20 unit, 0.2 mL, SUB-Q No Longer [facility] Route: SUB-Q, Active 2010 Medical Drug form: INJ, Center BID, Start date: 02/01/11 0:00:00, Stop date: 03/02/11 16:00:00 Keppra 100 mg/mL 500 mg, 5 mL, [place] No Longer [facility] oral solution Route: NJ, Drug Active 2010 Medical form: SOLN, Center Q12H, Start date: 01/31/11 21:00:00, Duration: 30 day, Stop date: 03/02/11 9:00:00 Insulin regular 1 unit, 0.01 mL, SUB-Q No Longer [facility] Route: SUB-Q, Active 2010 Medical Drug form: SOLN, Center TID-Before Meals, PRN Blood Glucose Results, Start date: 01/31/11 17:22:00, Duration: 30 day, Stop date: 03/02/11 17:21:00 Milk of Magnesia 30 mL, Route: PO No Longer [facility] PO, Drug Form: Active 2010 Medical SUSP, Daily, PRN Center Constipation, Start date: 01/31/11 17:22:00, Duration: 30 day, Stop date: 03/02/11 17:21:00 bisacodyl 10 mg, 1 supp, ND No Longer [facility] Route: ND, Drug Active 2010 Medical form: SUPP, Center Bedtime, PRN Constipation, Start date: 01/31/11 17:22:00, Duration: 30 day, Stop date: 03/02/11 17:21:00 ondansetron 4 mg, 2 mL, IVP No Longer [facility] Route: IVP, Drug Active 2010 Medical form: INJ, Q8H, Center PRN Nausea & Vomiting, Start date: 01/31/11 17:22:00, Duration: 30 day, Stop date: 03/02/11 17:21:00 Saline Flush 0.9% 3 mL, Route: IVP No Longer [facility] IVP, Drug Form: Active 2010 Medical INJ, Q8H, PRN [place] Flush, Start date: 01/31/11 17:22:00, Duration: 30 day, Stop date: 03/02/11 17:21:00, Administer at least once every 8 hoursAdminister at least once every 8 hours [place] Route: SUB-Q, SUB-Q No Longer [facility] Drug form: INJ, Active 2010 Medical BID, Start date: Center 01/31/11 17:00:00, Duration: 30 day, Stop date: 03/02/11 9:00:00 metFORmin 500 mg 500 mg, 1 tab, PO No Longer [facility] oral tablet Route: PO, Drug Active 2010 Medical form: TAB, Q8H, Center Start date: 01/31/11 16:00:00, Duration: 30 day, Stop date: 03/02/11 8:00:00 Steinauer 5/325 oral 1 tab, Route: PO No Longer [facility] tablet PO, Drug Form: Active 2010 Medical TAB, Q4H, PRN as Center needed for pain, Start date: 01/31/11 14:56:00, Duration: 30 day, Stop date: 03/02/11 14:55:00 bisacodyl 10 mg, Route: ND No Longer [facility] ND, Drug form: Active 2010 Medical SUPP, Daily, PRN Center as needed for constipation, Start date: 01/31/11 14:56:00, Duration: 30 day, Stop date: 03/02/11 14:55:00 Keppra 100 mg/mL 500 mg, 5 mL, [place] On Hold [facility] oral solution [place], Q12H, 60 mL, 2010 Medical Substitution Center Allowed, SOLN docusate sodium 100 mg, 1 cap, PO On Hold [facility] 100 mg oral PO, BID, 60 cap, 2010 Medical capsule Substitution Center Allowed, CAP dexamethasone 4 4 mg, 1 tab, PO, PO On Hold [facility] mg oral tablet Q6H-02, 60 tab, 2010 Medical Substitution Center Allowed, TAB bisacodyl 10 mg 10 mg, 1 supp, ND On Hold [facility] rectal ND, Daily, PRN, 2010 Medical suppository 60 supp, Center Constipation, Substitution Allowed, SUPP Steinauer 5/325 oral 1 tab, PO, Q4H, PO On Hold [facility] tablet PRN, 60 tab, 2010 Medical Headache, Center Substitution Allowed, Maintenance, TAB Steinauer 5/325 oral 1 tab, Route: PO No Longer [facility] tablet PO, Drug Form: Active 2010 Medical TAB, Q4H, PRN Center Headache, Start date: 01/30/11 15:44:00, Duration: 30 day, Stop date: 03/01/11 15:43:00 dexamethasone 4 mg, 1 tab, PO No Longer [facility] Route: PO, Drug Active 2010 Medical form: TAB, Center Q6H-02, Start date: 01/29/11 12:00:00, Stop date: 02/28/11 6:00:00 insulin 20 unit, 0.2 mL, SUB-Q No Longer [facility] isophane-NPH Route: SUB-Q, Active 2010 Medical Drug form: INJ, Center Q8H, Start date: 01/29/11 8:00:00, Stop date: 02/28/11 0:00:00 Keppra 100 mg/mL 500 mg, 5 mL, NJ No Longer [facility] oral solution Route: NJ, Drug Active 2010 Medical form: SOLN, Center Q12H, Start date: 01/28/11 21:00:00, Duration: 30 day, Stop date: 02/27/11 9:00:00 ranitidine 15 150 mg, 10 mL, NJ No Longer [facility] mg/mL oral syrup Route: NJ Drug Active 2010 Medical form: SYRP, Center Q12H, Start date: 01/28/11 21:00:00, Duration: 30 day, Stop date: 02/27/11 9:00:00 Dextrose 50% 6.25 gm, 12.5 IVP No Longer [facility] Syringe mL, Route: IVP, Active 2010 Medical Drug Form: INJ, Center PRN, PRN Abnormal Lab Result, Start date: 01/28/11 17:39:00, Duration: 30 day, Stop date: 02/27/11 17:38:00 insulin regular 3 unit, 0.03 mL, SUB-Q No Longer [facility] human recombinant Route: SUB-Q, Active 2010 Medical 100 units/mL Drug form: SOLN, Center injectable PRN, PRN solution Abnormal Lab Result, Start date: 01/28/11 17:39:00, Duration: 30 day, Stop date: 02/27/11 17:38:00 metFORmin 1000 mg 1,000 mg, 1 tab, PO No Longer [facility] oral tablet Route: PO, Drug Active 2010 Medical form: TAB, BID, Center Start date: 01/28/11 17:00:00, Duration: 30 day, Stop date: 02/27/11 9:00:00 heparin 5,000 unit, 1 SUB-Q No Longer [facility] mL, Route: Active 2010 Medical SUB-Q, Drug Center form: INJ, Q8H, Start date: 01/28/11 0:00:00, Duration: 30 day, Stop date: 02/26/11 16:00:00 sodium phosphate 18 mmol, 6 mL, IV Active [facility] Route: IV, ONCE, 2010 Medical Start date: Center 01/27/11 3:30:00, Stop date: 01/27/11 3:30:00 normal saline 1,000 mL, Rate: IV No Longer [facility] 0.9% IV 1,000 mL 50 ml/hr, Infuse Active 2010 Medical over: 20 hr, [place] Route: IV, Total Volume: 1,000, Start date: 01/26/11 17:48:00, Duration: 30 day, Stop date: 02/25/11 17:47:00 labetalol 200 mg, 1 tab, PO No Longer [facility] Route: PO, Drug Active 2010 Medical form: TAB, Q8H, Center Start date: 01/26/11 16:00:00, Stop date: 02/25/11 8:00:00 dexamethasone 6 mg, 1 tab, PO No Longer [facility] Route: PO, Drug Active 2010 Medical form: TAB, Q4H, Center Start date: 01/26/11 16:00:00, Duration: 30 day, Stop date: 02/25/11 12:00:00 propofol 10 mg/ml 1,000 mg, 100 IV No Longer [facility] (titrate) 1,000 mL, Rate: Active 2010 Medical mg Titrate as Center directed, Route: IV, Total Volume: 100 ml, Start date: 01/26/11 15:51:00, Duration: 30 day, Stop date: 02/25/11 15:50:00, Replace Every: 24 hr dexamethasone 10 mg, Route: IVP No Longer [facility] IVP, Q6H, Start Active 2010 Medical date: 01/26/11 Center 12:00:00, Duration: 30 day, Stop date: 02/25/11 6:00:00 mannitol 75 gm, 375 mL, IVPB No Longer [facility] Route: IVPB, Active 2010 Medical Drug form: INJ, Center Q6H, Start date: 01/26/11 12:00:00, Duration: 30 day, Stop date: 02/25/11 6:00:00 mannitol 75 gm, 375 mL, IVPB No Longer [facility] Route: IVPB, Active 2010 Medical Drug form: INJ, Center ONCE, Start date: 01/26/11 10:00:00, Stop date: 01/26/11 10:00:00 potassium 36 mmol, 12 mL, IVPB No Longer [facility] phosphate Route: IVPB, On Active 2010 Medical Adm, Start date: [place] 01/26/11 3:29:00, Duration: 1 doses or times, Stop date: 01/26/11 8:00:00 mannitol 50 gm, Route: IVPB No Longer [facility] IVPB, ONCE, Active 2010 Medical Start date: [place] 01/25/11 17:50:00, Stop date: 01/25/11 17:50:00 heparin 5,000 unit, 1 SUB-Q No Longer [facility] mL, Route: Active 2010 Medical SUB-Q, Drug Center form: INJ, Q8H, Start date: 01/25/11 16:00:00, Duration: 30 day, Stop date: 02/24/11 8:00:00 sodium phosphate 15 mmol, 5 mL, IV Active [place] [facility] Route: IV, ONCE, 2010 Medical Start date: [place] 01/25/11 8:20:00, Stop date: 01/25/11 8:20:00 sodium phosphate 15 mmol, Route: IVPB No Longer [facility] 01/25[facility] IVPB, PRN, PRN Active 2010 Medical Abnormal Lab Center Result, Start date: 01/25/11 6:44:00, Duration: 30 day, Stop date: 02/24/11 6:43:00 magnesium sulfate 4 gm, 100 mL, IVPB No Longer [facility] 01/25[facility] Route: IVPB, Active 2010 Medical Drug form: INJ, Center ONCE, Start date: 01/25/11 6:44:00, Duration: 1 doses or times, Stop date: 01/25/11 6:44:00, For Mg=1.5 - 1.7 mg/dLFor Mg=1.5 - 1.7 mg/dL hydrALAZINE 10 mg, 0.5 mL, IV No Longer [facility] 01/25[facility] Route: IV, Drug Active 2010 Medical form: INJ, Center Q30Min, PRN Hypertension, Start date: 01/25/11 0:14:00, Duration: 30 day, Stop date: 02/24/11 0:13:00 dexamethasone 10 mg, 1 mL, IV No Longer [facility] 01/25[facility] Route: IV, Drug Active 2010 Medical form: INJ, Q6H, Center Start date: 01/25/11 0:00:00, Stop date: 02/23/11 18:00:00 Insulin regular 99 mL, Rate: IV No Longer [facility] 01/25[facility] 100 unit + Sodium TITRATE, Route: Active 2010 Medical Chloride 0.9% IV IV, Total Center 99 mL Volume: 100, Start date: 01/24/11 23:59:00, Duration: 30 day, Stop date: 02/23/11 23:58:00 Dextrose 50% 12.5 gm, 25 mL, IVP No Longer [place] 01/25[facility] Syringe Route: IVP, Drug Active 2010 Medical Form: INJ, PRN, Center PRN Abnormal Lab Result, Start date: 01/24/11 23:41:00, Duration: 30 day, Stop date: 02/23/11 23:40:00 Insulin regular 100 mL, Rate: IVPB No Longer [place] 01/25[facility] 100 unit + Sodium Start at 0.05 Active 2010 Medical Chloride 0.9% units/kg/hour-, Center (titrate) 100 mL Route: IVPB, Total Volume: 100, Duration: 30 day, Stop date: 02/23/11 23:41:00, Replace Every: 24 hr labetalol 10 mg, 2 mL, IV No Longer [place] 01/25[facility] Route: IV, Drug Active 2010 Medical form: INJ, Center Q15Min, PRN Hypertension, Start date: 01/24/11 22:36:00, Duration: 30 day, Stop date: 02/23/11 22:35:00 levetiracetam 500 mg, Route: IV No Longer [facility] 01/25[facility] IV, Q12H, Start Active 2010 Medical date: 01/24/11 Center 21:00:00, Duration: 30 day, Stop date: 02/23/11 9:00:00 famotidine 20 mg, 2 mL, IV No Longer [facility] Route: IV, Drug Active 2010 Medical form: INJ, Q12H, Center Start date: 01/24/11 21:00:00, Stop date: 02/23/11 9:00:00 propofol 10 mg/ml 1,000 mg, 100 IV No Longer [facility] (titrate) 1,000 mL, Rate: Active 2010 Medical mg Titrate as Center directed, Route: IV, Total Volume: 100 ml, Start date: 01/24/11 20:56:00, Duration: 30 day, Stop date: 02/23/11 20:55:00, Replace Every: 12 hr chlorhexidine 15 ml, Route: S&SPIT No Longer [facility] topical 0.12% S&SPIT, Q4H, Active 2010 Medical liquid Drug form: LIQ, Center Start date: 01/24/11 20:00:00, Duration: 30 day, Stop date: 02/23/11 16:00:00 niCARdipine 40 mg 40 mg, 200 mL, IV No Longer [facility] in [place] 200 ml IV Rate: Titrate, Active 2010 Medical 40 mg Route: IV, Total Center Volume: 200 mL, Duration: 30 day, Stop date: 02/23/11 19:06:00, Replace Every: 24 hr vancomycin 1 gm, Route: IVPB No Longer [facility] IVPB, Drug form: Active 2010 Medical INJ, [id number], Center Start date: 01/24/11 9:00:00, Duration: 30 day, Stop date: 02/22/11 21:00:00 famotidine 20 mg 20 mg, 1 tab, PO No Longer [facility] oral tablet Route: PO, Drug Active 2010 Medical form: TAB, Q12H, Center Start date: 01/23/11 21:00:00, Duration: 30 day, Stop date: 02/22/11 9:00:00 potassium 20 mEq, PO, PO On Hold [facility] chloride 20 mEq Daily, 2010 Medical oral tablet, Substitution Center extended release Allowed, TAB Lasix 40 mg oral 80 mg, 2 tab, PO On Hold [facility] tablet PO, Daily, 30 2010 Medical tab, Center Substitution Allowed, TAB heparin 5000 5,000 unit, 1 SUB-Q No Longer [facility] units/mL mL, Route: Active 2010 Medical injectable SUB-Q, Drug Center solution form: INJ, Q8H, Start date: 01/23/11 16:00:00, Duration: 30 day, Stop date: 02/22/11 8:00:00 [place] 250 mcg, SUB-Q, SUB-Q On Hold [facility] BID, 2010 Medical Substitution Center Allowed, INJ cephalexin 500 mg, PO, TID, PO On Hold [facility] monohydrate 500 Substitution 2010 Medical mg oral tablet Allowed, CAP Center Levaquin 500 mg 1 tab, PO, Q24H, PO On Hold [facility] oral tablet 10 tab, 2010 Medical Substitution Center Allowed, TAB metFORmin 500 mg 500 mg, PO, TID, PO On Hold [facility] oral tablet Substitution 2010 Medical Allowed, TAB Center Crestor 20 mg 1 tab, PO, PO On Hold [facility] oral tablet Daily, 30 tab, 2010 Medical Substitution Center Allowed, TAB benzonatate 200 1 cap, PO, TID, PO On Hold [facility] mg oral capsule 30 cap, 2010 Medical Substitution Center Allowed, CAP atenolol 50 mg 1 tab, PO, PO On Hold [facility] oral tablet Daily, 30 tab, 2010 Medical Substitution Center Allowed Blaine Thyroid 1 tab, PO, PO On Hold [facility] [place] 120 mg oral Daily, 30 tab, 2010 Medical tablet Substitution Center Allowed, TAB docusate 100 mg, 1 cap, PO No Longer [facility] Route: PO, Drug Active 2010 Medical form: CAP, BID, Center Start date: 01/23/11 9:00:00, Stop date: 02/21/11 17:00:00 Senna 8.6 mg oral 8.6 mg, 1 tab, PO No Longer Nur [facility] tablet Route: PO, Drug Active 2010 Medical Form: TAB, Q12H, Center Start date: 01/23/11 9:00:00, Duration: 30 day, Stop date: 02/21/11 21:00:00 levetiracetam 500 mg, 1 tab, PO No Longer [facility] Route: PO, Drug Active 2010 Medical form: TAB, Q12H, Center Start date: 01/23/11 9:00:00, Duration: 30 day, Stop date: 02/21/11 21:00:00 calcium chloride 1,000 mg, 10 mL, IVPB No Longer [facility] Route: IVPB, Active 2010 Medical ONCE, Start Center date: 01/23/11 8:30:00, Stop date: 01/23/11 8:30:00 magnesium sulfate 2 gm, 50 mL, IVPB No Longer [facility] Route: IVPB, Active 2010 Medical Drug form: INJ, Center Q2H, Start date: 01/23/11 8:20:00, Duration: 2 doses or times, Stop date: 01/23/11 10:00:00 dexamethasone 4 mg, 1 tab, PO No Longer [facility] Route: PO, Drug Active 2010 Medical form: TAB, Q6H, Center Start date: 01/23/11 6:00:00, Duration: 30 day, Stop date: 02/22/11 0:00:00 acetaminophen 650 mg, 2 tab, PO No Longer Nur [facility] Route: PO, Drug Active 2010 Medical form: TAB, Q4H, Center PRN Pain/Fever, Start date: 01/23/11 5:22:00, Duration: 30 day, Stop date: 02/22/11 5:21:00 morphine Sulfate 2 mg, 1 mL, IVP No Longer [facility] Route: IVP, Drug Active 2010 Medical form: INJ, Q4H, Center PRN Pain Score 4-6, Start date: 01/23/11 5:22:00, Duration: 30 day, Stop date: 02/22/11 5:21:00, Hold for respiratory rate of 8 or less NS + KCL 20mEq/L 1,000 mL, Rate: IV No Longer [facility] 1000ml (Premix) 60 ml/hr, Infuse Active 2010 Medical 1,000 mL 1,000 mL over: 16.7 hr, Center Route: IV, Total Volume: 1,000, Start date: 01/23/11 5:21:00, Duration: 30 day, Stop date: 02/22/11 5:20:00 insulin regular 5 unit, 0.05 mL, SUB-Q No Longer [facility]ur 01/23[facility] human recombinant Route: SUB-Q, Active 2010 Medical 100 units/mL Drug form: SOLN, Center injectable PRN, PRN solution Abnormal Lab Result, Start date: 01/23/11 5:14:00, Duration: 30 day, Stop date: 02/22/11 5:13:00 Dextrose 50% 6.25 gm, 12.5 IVP No Longer [facility]ur 01/23[facility] Syringe mL, Route: IVP, Active 2010 Medical Drug Form: INJ, Center PRN, PRN Abnormal Lab Result, Start date: 01/23/11 5:14:00, Duration: 30 day, Stop date: 02/22/11 5:13:00 Saline Flush 0.9% 5 ml, Route: IVP No Longer Nur [address] [place] [address] IVP, Drug Form: Active 2010 Medical INJ, PRN, PRN [place] Flush, Start date: 01/23/11 5:14:00, Duration: 30 day, Stop date: 02/22/11 5:13:00 bisacodyl 10 mg, 1 supp, ND No Longer [facility]ur 01/23[facility] Route: ND, Drug Active 2010 Medical form: SUPP, Center Daily, PRN Constipation, Start date: 01/23/11 5:14:00, Duration: 30 day, Stop date: 02/22/11 5:13:00 acetaminophen 650 mg, 2 tab, PO No Longer [facility]ur 01/23[facility] Route: PO, Drug Active 2010 Medical form: TAB, Q4H, Center PRN Pain/Fever, Start date: 01/23/11 5:14:00, Duration: 30 day, Stop date: 02/22/11 5:13:00 morphine Sulfate 2 mg, 1 mL, IVP No Longer [place] 01/23[facility] Route: IVP, Drug Active 2010 Medical form: INJ, Q1H, Center PRN Pain Score 7-10, Start date: 01/23/11 5:14:00, Duration: 30 day, Stop date: 02/22/11 5:13:00 ondansetron 4 mg, 2 mL, IVP No Longer Nur 01/23/ [facility] Route: IVP, Drug Active 2010 Medical form: INJ, Q8H, Center PRN Nausea & Vomiting, Start date: 01/23/11 5:14:00, Duration: 30 day, Stop date: 02/22/11 5:13:00 Allergies, Adverse Reactions, Alerts Substance Category Reaction Severity Reaction Status Date Comments Source type Reported penicillins< Assertion rash Drug Active Data [facility] sup>1</sup> allergy 1 migrated Neuro from [facility] on 01/22/15. Originally documented as PCN. erythromycin Assertion Drug Active Data [facility] <sup>2</sup> allergy 1 migrated Neuro from [facility] on 01/22/15. Originally documented as ERYTHROMYCI N. aspirin<sup> Assertion severe Drug Active Data [facility] 3</sup> chest allergy 1 migrated Neuro pain from [facility] on 01/22/15. Originally documented as ASPIRIN. Adhesive Assertion Drug Active Data [facility] Tape<sup>4</ allergy 1 migrated Neuro sup> from [facility] on 08/01/15. Originally documented as ADHESIVE TAPE. PHENobarbita Assertion Drug Active Data [facility] l<sup>5</sup allergy 1 migrated Neuro > from [facility] on 01/22/15. Originally documented as PHENOBARBIT AL. aspirin allergy to severe Allergy Active [facility] chest Medical pain Center erythromycin drug Allergy Active [facility] penicillins drug rash Allergy Active [facility] phenobarbita Assertion rash Drug Active [facility] Silk Tape propensity takes Adverse Active [facility] to adverse skin off Reaction Medical reactions Center to substance ciprofloxaci Assertion Drug Active [facility] cefepime Assertion Drug Active [facility] Cortizone-10 Assertion Drug Active [facility] Immunizations Immunization Date Given Site Status Last Updated Comments Source Results Order Name Results Value Reference Date Interpretation Comments Source Range HEMATOLOGY MPV 9.7 fL 7.4 - 10.4 08/[address] HEMATOLOGY Platelet 163 K/CMM 133 - 450 08/[address] HEMATOLOGY RDW 13.7 % 11.5 - 08/19 [place] [address] [facility] HEMATOLOGY Hgb 17.8 g/dL 12.0 - 08/19 [facility] 16.0 [facility] HEMATOLOGY Hct 52.9 % 36.0 - 08/19 [facility] 48.0 [facility] HEMATOLOGY MCV 92.3 fL 80.0 - 08/19 [facility] 98.0 [facility] HEMATOLOGY RBC 5.73 M/CMM 4.20 - 08/19 [facility] 5.40 /2018 [facility] HEMATOLOGY WBC 8.5 K/CMM 3.7 - 10.4 08/19 [facility] HEMATOLOGY MCHC 33.6 g/dL 32.0 - 08/19 [facility] 36.0 [facility] HEMATOLOGY MCH 31.0 pg 27.0 - 08/19 [facility] 31.0 [facility] CARDIAC BNP 98 pg/mL <=100 08/19 [facility] ENZYMES pg/mL [facility] CHEM PANEL Phosphorus 3.4 mg/dL 2.5 - 4.5 08/19 [facility]2018 [facility] CHEM PANEL Magnesium Lvl 1.9 mg/dL 1.8 - 2.4 08/19 [facility]2018 [facility] CHEM PANEL eGFR 62 08/19 Result Comment: The eGFR is calculated using the CKD-EPI formula. In most young, healthy individuals the eGFR will be >90 mL/ min/1.73m2. The eGFR declines with age. An eGFR of 60-89 may be normal in [facility] mL/min/1. some populations, particularly the elderly, for whom the CKD-EPI formula has not been extensively validated. Use of the eGFR is not recommended in the following populations: [address] Individuals with unstable creatinine concentrations, including patients and those with serious co-morbid conditions. Patients with extremes in muscle mass or diet. The data above are obtained from the National Kid[employer] Disease Education Program (NKDEP) which additionally recommends that when the eGFR is used in patients with extremes of body mass index for purposes of drug dosing, the eGFR should be multiplied by the estimated BMI. CHEM PANEL Calcium Lvl 8.8 mg/dL 8.5 - 10.5 08/19 [facility] CHEM PANEL CO2 23 meq/L 24 - 32 08/19 [facility]2018 [facility] CHEM PANEL Chloride Lvl 106 meq/L 95 - 109 08/19 [facility] CHEM PANEL Potassium Lvl 4.6 meq/L 3.5 - 5.1 08/19 Result Comment: [facility] Specimen Center Moderately Hemolyzed. CHEM PANEL Creatinine 0.94 mg/dL 0.50 - 08/19 [facility] Lvl 1.40 [facility] CHEM PANEL Sodium Lvl 138 meq/L 135 - 145 08/19 2018 [facility] CHEM PANEL BUN 13 mg/dL 7 - 22 08/19 [facility] CHEM PANEL Glucose Lvl 160 mg/dL 70 - 99 08/19 [facility] CHEM PANEL AGAP 13.6 meq/L 10.0 - 08/19 20.0 [facility] HEMATOLOGY Eosinophils # 0.2 K/CMM 0.0 - 0.5 08/19 [facility] HEMATOLOGY Basophils # 0.1 K/CMM 0.0 - 0.2 08/19 [facility] HEMATOLOGY Segs 47.9 % 45.0 - 08/19 75.0 [facility] HEMATOLOGY Lymphocytes 40.1 % 20.0 - 08/19 40.0 [facility] HEMATOLOGY Lymphocytes # 3.9 K/CMM 1.0 - 5.5 08/19 [facility] HEMATOLOGY Monocytes # 0.9 K/CMM 0.0 - 0.8 08/19 [facility] HEMATOLOGY Monocytes 8.8 % 2.0 - 12.0 08/19 [facility] HEMATOLOGY Basophils 1.2 % 0.0 - 1.0 08/19 [facility] HEMATOLOGY Eosinophils 2.0 % 0.0 - 4.0 08/19 [facility] HEMATOLOGY Neutrophils # 4.7 K/CMM 1.5 - 8.1 08/19 [facility] HEMATOLOGY INR 1.09 0.85 - 08/19 1.17 [facility] HEMATOLOGY PT 13.9 s 12.0 - 08/19 14.7 [facility] HEMATOLOGY PTT 31.0 s 22.9 - 08/19 [place] 35.8 [facility] HEMATOLOGY MCV 93.0 fL 80.0 - 08/19 98.0 [facility] HEMATOLOGY MCH 31.1 pg 27.0 - 08/19 [place] 31.0 [facility] HEMATOLOGY RDW 13.7 % 11.5 - 08/19 [facility] 14.5 /2018 [facility] HEMATOLOGY MCHC 33.4 g/dL 32.0 - 08/19 [facility] 36.0 [facility] HEMATOLOGY Platelet 77 K/CMM 133 - 450 08/19 [facility]2018 [facility] HEMATOLOGY MPV 9.9 fL 7.4 - 10.4 08/19 [facility]2018 [facility] HEMATOLOGY Hct 49.7 % 36.0 - 08/19 [facility] 48.0 [facility] HEMATOLOGY Hgb 16.6 g/dL 12.0 - 08/19 [facility] 16.0 [facility] HEMATOLOGY RBC 5.35 M/CMM 4.20 - 08/19 [facility] 5.40 /2018 [facility] HEMATOLOGY WBC 9.7 K/CMM 3.7 - 10.4 08/19 [facility]2018 [facility] PARATHYROID Ca Ion WB 1.02 1.05 - 08/19 [facility] PROFILE mMol/L 1. [facility] PARATHYROID Ca Norm WB 0.98 1.05 - 08/19 [facility] PROFILE mMol/L 1. [facility] URINE AND Occult Bld Negative Negative 08/19 [facility] STOOL Stl [facility] (08/19/18 4:40 AM) Center Culture: Normal Enteric Era Isolated 08/19 [facility] Stool [facility] No Salmonella Or Shigella Isolated Center Angiogram Angiogram PROCEDURE: 08/19 - [facility] cervical cervical /2018 - [facility] artery artery 1. Diagnostic Cerebral Angiogram This report was dictated by a Rolloff Truck Driver/Fellow/Physician [employer]. I have personally Center bilateral bilateral VR reviewed the images as well as the interpretation and agree with the findings. 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 Currently complaining of insidious onset of memory loss, left ptosis and slurred speech for 3 days. REFERRING PROVIDER: Sean Coy MD ATTENDING: Cm Keenan MD was present and immediately available for the entire procedure, performing all critical portions and reviewing all angiographic results. FELLOW: Yohana Sotelo MD COMPARISON: CTA of the head and neck dated 08/16/2017, MR of the brain and orbits dated 08/18/2018. FLUOROSCOPY TIME: 8.7 minutes CONTRAST: 100 cc MEDICATIONS: See nursing records. RADIATION DOSE: Cumulative Air KERMA Frontal: 1219.25 mGy Cumulative Air KERMA Lateral: 331.69 mGy PROCEDURE: Once informed consent was obtained describing all the risks, benefits and alternatives of the procedure the patient was brought to the interventional suite and placed in the supine position w here moderate sedation was administered under the supervision of the attending physician. The patient was then prepped and draped in the usual sterile fashion. The right femoral artery was accessed usin g a single wall micropuncture technique and a 5-Estonian sheath was placed. A 5-Estonian Vert catheter was coaxially advanced over a 0.035 Terumo Glidewire through the sheath into the aorta arch to select t he below mentioned arteries using roadmap technique. Two-dimensional angiography was performed in biplane projections. After review of the angiography data, the catheter was withdrawn. Right femoral artery angiogram was performed and the catheter was removed. The femoral artery sheath was removed and closed by the appl ication of a Mynx closure device. Post procedure neurological examination was at the patient's baseline. The patient was was then transferred to interventional holding area for post procedure care. TASKS: 1. Right common carotid artery catheterization and 2-D cervical angiogram 2. Right external carotid artery selective catheterization and 2-D angiogram 3. Right internal carotid artery selective catheterization and 2-D angiogram 4. Left common carotid artery catheterization and 2-D cervical angiogram 5. Left external carotid artery selective catheterization and 2-D angiogram 6. Left internal carotid artery selective catheterization and 2-D angiogram 7. Left vertebral artery selective catheterization and 2-D cerebral angiogram FINDINGS: 1. Right common carotid artery: Right common carotid artery injection and cervical angiogram reveals normal antegrade flow into the external and internal carotid arteries with normal filling of the exte rnal carotid artery branches. There is a smooth atheromatous plaque along the posterior wall of the carotid bulb and the proximal cervical internal carotid artery, without hemodynamically significant st enosis. Course and caliber of the cervical portion of the internal carotid artery are otherwise unremarkable. Further inspection demonstrates no evidence of dissection, stenosis, aneurysm, or other vasc ular abnormality within the common carotid artery into the cervical segment of the internal carotid artery. 2. Right external carotid artery: Right external carotid artery injection reveals normal antegrade opacification of the right external carotid artery and branches. There is no evidence of abnormal intra cranial communication or early venous shunting. 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 There is no opacification of the ophthalmic artery territory. 3. Right internal carotid artery: Right internal carotid artery injection reveals normal antegrade filling of the distal internal carotid artery, ophthalmic artery, anterior cerebral artery, middle cere bral artery and the distal branches. Further inspection of the remaining right internal carotid artery circulation revealed no evidence of cerebral aneurysm, arteriovenous malformation, hemodynamically significant arterial stenosis or other vascular abnormalities. Note is made of early and ill-defined contrast blush along the planum sphenoidale, with early opacification of the ipsilateral cavernous si nus, likely corresponding to the known residual meningioma. Mild contour irregularity and smooth tapering of the ophthalmic and communicating segments, with luminal narrowing of approximately 50%. There is no opacification of the right A1 segment, or right SANTIAGO territory. The retinal blush is well preserved. Capillary phase images were unremarkable. . There is no opacification of the anterior 3rd of th e superior sagittal sinus, likely postsurgical in nature. 4. Left common carotid artery: Left common carotid artery injection and cervical angiogram reveals normal antegrade flow into the external and internal carotid arteries with normal filling of the production control specialist al carotid artery branches. Smooth atheromatous plaques surrounding the carotid bifurcation and the proximal cervical internal carotid artery, without hemodynamically significant stenosis. Course and ca liber of the cervical portion of the internal carotid artery are otherwise unremarkable. Further inspection demonstrates no evidence of dissection, stenosis, aneurysm, or other vascular abnormality with in the common carotid artery into the cervical segment of the internal carotid artery. 5. Left external carotid artery: Left external carotid artery injection reveals normal antegrade opacification of the left external carotid artery and branches. There is no evidence of abnormal intracra nial communication or early venous shunting. Of note, there is a round shaped, hypervascular lesion, located in the subcutaneous tissue, immediately anterior to and apparently felt by the proximal super ficial temporal artery, measuring approximately 8 mm in the maximum diameter. The is no opacification of the ophthalmic artery territory. 6. Left internal carotid artery: Left internal carotid artery injection reveals normal antegrade filling of the distal internal carotid artery, ophthalmic artery, anterior cerebral artery, middle cerebr al artery and the distal branches. 50% stenosis of the ophthalmic segment, just distal to the origin of the superior hypophyseal artery. An early an ill- defined blush of contrast is seen along the planu m sphenoidale, corresponding to the known meningioma; however, less prominent when compared with the contralateral side. The SANTIAGO are supplied by the left A1 segment bilaterally. The retinal blush is unr emarkable. Further inspection of the remaining left internal carotid artery circulation revealed no evidence of cerebral aneurysm, arteriovenous malformation or other vascular abnormalities. Capillary phase images were also unremarkable. There is no opacification of the anterior 3rd of the superior sagittal sinus. 7. Left vertebral artery: Left vertebral artery injection and cerebral angiogram reveals normal antegrade opacification of the high cervical segment of the left vertebral artery, basilar artery and resp ective branches. Retrograde contrast opacification of the contralateral right V4 segment was achieved and demonstrate no evidence of an aneurysm at the origin of the right PICA. Smooth atheromatous plaq ues of the P1 segments bilaterally, without resultant hemodynamically significant stenosis. Further inspection demonstrates no other evidence of cerebral aneurysm, arteriovenous malformation, dissection , or other vascular abnormalities. Capillary and venous phase images were also unremarkable with no evidence of venoocclusive disease. IMPRESSION: 1. There is no aneurysm, or any other vascular lesion to explain the patient's acute neurologic deficit. 2. 50% stenosis of the ophthalmic segment of the left internal carotid artery, likely atherosclerotic in nature. 3. Narrowing of the ophthalmic and communicating segments of the right internal carotid artery, associated with absence of the right A1 segment, felt to be secondary to tumor encasement. 4. Hypervascular subcutaneous lesion in the left parotid region, likely neoplastic in nature. Ambulatory high-resolution ultrasound examination would be helpful for better characterization. 5. Atheromatous plaques in the carotid bifurcations and vertebral basilar system, without hemodynamically significant stenosis. Skull 1 Skull 1 view EXAM: XR SKULL 1 VIEW 08/18 - [place] view DX DX /2019 [facility] DATE: 08/18/2018 17:56 CDT Read by: Heide Cardozo Dictated Date/time: 08/19/18 08:24 Electronically Signed by: Heide Cardozo 08/19/18 08:32 FINAL REPORT INDICATION: - post, Codman view COMPARISON: 08/17/2018 TECHNIQUE: AP and lateral radiographs of the skull DISCUSSION: A Codman valve set at 140 mm H2O is demonstrated, which represent a slight decrease in the pressure setting as compared to the examination obtained one day prior. IMPRESSION: Minimal change in the setting of the Codman valve, now at 140 mm H2O. Orbit wo Orbit wo EXAM: MRI BRAIN WITHOUT CONTRAST 08/18 - [place] contrast contrast /2018 - Medical MRI EXAM: MRI ORBITS WITHOUT CONTRAST. This report was dictated by a Rolloff Truck Driver/Fellow/Physician [employer]. I have personally Center reviewed the images as well as the interpretation and agree with the findings. 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 Pres enting with 5 day history of left eye anisocoria and ptosis with slow speech. COMPARISON: 08/18/[address]; 08/16/2018 CT head; 08/16/2018 CTA head/ neck; 07/07/2012 MRI brain, 07/20/2010 MRI brain, 01/23/2011 MRI brain TECHNIQUE: Multiplanar, multisequence MRI of the brain without contrast. FINDINGS: There are postsurgical changes of right frontal craniotomy for resection open extensive meningioma based on the right planum sphenoid alley and central anterior skull base. When compared with remote rodney dies of December and January 2011, there is increased extent and size of hyperostotic signal change involving the body of the sphenoid extending along the left and right planum sphenoidale including the anterior clinoid processes. Better appreciated on recent CT examinations, this produces narrowing of the bilateral orbital apices, superior orbital fissures, and optic canals. Left intraocular lens replacement. Globes are otherwise normal in appearance. Extraocular muscles are symmetric with normal morphology and signal intensity. Optic nerves normal in size and signal. No in flammatory changes of the intraorbital fat. Periorbital soft tissues are unremarkable. Unchanged cystic encephalomalacia with adjacent gliosis throughout involving most of the anterior right frontal lobe and right anterolateral temporal lobe. Left frontal ventriculostomy terminates in unchanged position in the anterior body of the right lateral ventricle. Ventricular caliber is unchanged when compared with multiple prior studies dating back to 2010. The basilar cisterns are patent. There is no restricted diffusion to suggest acute infarct. No abnormal extra-axial fluid collection, mass effect, or midline shift demonstrated. The major intracranial vascular flow-related signal voids are maintained. Better seen on the 08/16/2018 CTA, there is diffuse luminal narrowing of the right supraclinoid internal carotid artery as it traverses the aforementioned hyperostotic changes. IMPRESSION: Increased size and extent of hyperostotic marrow signal change in the central skull base, with narrowing of the bilateral orbital apices including the optic canals and superior orbital fissures. These f indings could explain reported cranial nerve symptoms. These bony changes are presumably due to a combination of residual intraosseous meningioma and associated reactive hyperostosis (with diffuse narciso rial inner table hyperostosis and cervical/thoracic diffuse hepatic skeletal hyperostosis suggesting the patient is prone to reactive bone formation ). Contrast-enhanced study would be helpful to further evaluate, which of the abnormality represents residual/recurrent meningioma. Narrowing of the supraclinoid right internal carotid artery as it traverses the hyperostotic changes is redemonstrated. Unchanged right frontal and right temporal cystic encephalomalacia with adjacent gliosis. Unchanged ventricular caliber and position of left frontal ventriculostomy. Brain wo Brain wo EXAM: MRI BRAIN WITHOUT CONTRAST 08/18 - [facility] contrast contrast /2018 - Medical MRI EXAM: MRI ORBITS WITHOUT CONTRAST. This report was dictated by a Rolloff Truck Driver/Fellow/Physician Farmworker [employer]. I have personally Center reviewed the images as well as the interpretation and agree with the findings. 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 Pres enting with 5 day history of left eye anisocoria and ptosis with slow speech. COMPARISON: 08/18/[address]; 08/16/2018 CT head; 08/16/2018 CTA head/ neck; 07/07/2012 MRI brain, 07/20/2010 MRI brain, 01/23/2011 MRI brain TECHNIQUE: Multiplanar, multisequence MRI of the brain without contrast. FINDINGS: There are postsurgical changes of right frontal craniotomy for resection open extensive meningioma based on the right planum sphenoid alley and central anterior skull base. When compared with remote rodney dies of December and January 2011, there is increased extent and size of hyperostotic signal change involving the body of the sphenoid extending along the left and right planum sphenoidale including the anterior clinoid processes. Better appreciated on recent CT examinations, this produces narrowing of the bilateral orbital apices, superior orbital fissures, and optic canals. Left intraocular lens replacement. Globes are otherwise normal in appearance. Extraocular muscles are symmetric with normal morphology and signal intensity. Optic nerves normal in size and signal. No in flammatory changes of the intraorbital fat. Periorbital soft tissues are unremarkable. Unchanged cystic encephalomalacia with adjacent gliosis throughout involving most of the anterior right frontal lobe and right anterolateral temporal lobe. Left frontal ventriculostomy terminates in unchanged position in the anterior body of the right lateral ventricle. Ventricular caliber is unchanged when compared with multiple prior studies dating back to 2010. The basilar cisterns are patent. There is no restricted diffusion to suggest acute infarct. No abnormal extra-axial fluid collection, mass effect, or midline shift demonstrated. The major intracranial vascular flow-related signal voids are maintained. Better seen on the 08/16/2018 CTA, there is diffuse luminal narrowing of the right supraclinoid internal carotid artery as it traverses the aforementioned hyperostotic changes. IMPRESSION: Increased size and extent of hyperostotic marrow signal change in the central skull base, with narrowing of the bilateral orbital apices including the optic canals and superior orbital fissures. These f indings could explain reported cranial nerve symptoms. These bony changes are presumably due to a combination of residual intraosseous meningioma and associated reactive hyperostosis (with diffuse narciso rial inner table hyperostosis and cervical/thoracic diffuse hepatic skeletal hyperostosis suggesting the patient is prone to reactive bone formation ). Contrast-enhanced study would be helpful to further evaluate, which of the abnormality represents residual/recurrent meningioma. Narrowing of the supraclinoid right internal carotid artery as it traverses the hyperostotic changes is redemonstrated. Unchanged right frontal and right temporal cystic encephalomalacia with adjacent gliosis. Unchanged ventricular caliber and position of left frontal ventriculostomy. CHEM PANEL Alk Phos 132 unit/L 39 - 136 08/[address] CHEM PANEL A/G Ratio 0.6 0.7 - 1.6 08/[address] CHEM PANEL ALT 30 unit/L 0 - 65 08/[address] CHEM PANEL Total Protein 6.9 g/dL 6.4 - 8.4 08/[address] CHEM PANEL Albumin Lvl 2.6 g/dL 3.5 - 5.0 08/[address] CHEM PANEL Globulin 4.3 g/dL 2.7 - 4.2 08/[address] CHEM PANEL Bili Direct null 0.0 - 0.3 08/[address] CHEM PANEL Bili Total 0.5 mg/dL 0.2 - 1.3 08/[address] CHEM PANEL Bili Indirect null 0.0 - 1.0 08/[address] CHEM PANEL AST 21 unit/L 0 - 37 08/[address] CHEM PANEL Calcium Lvl 8.5 mg/dL 8.5 - 10.5 08/[address] CHEM PANEL eGFR 71 08/18 Result Comment: The eGFR is calculated using the CKD-EPI formula. In most young, healthy individuals the eGFR will be >90 mL/ min/1.73m2. The eGFR declines with age. An eGFR of 60-89 may be normal in [facility] mL/min/1.7 some populations, particularly the elderly, for whom the CKD-EPI formula has not been extensively validated. Use of the eGFR is not recommended in the following populations: [address] Individuals with unstable creatinine concentrations, including patients and those with serious co-morbid conditions. Patients with extremes in muscle mass or diet. The data above are obtained from the National Kidney Disease Education Program (NKDEP) which additionally recommends that when the eGFR is used in patients with extremes of body mass index for purposes of drug dosing, the eGFR should be multiplied by the estimated BMI. CHEM PANEL BUN 13 mg/dL 7 - 22 08/[address] CHEM PANEL Glucose Lvl 162 mg/dL 70 - 99 08/[address] CHEM PANEL CO2 27 meq/L 24 - 32 08/[address] CHEM PANEL Potassium Lvl 3.6 meq/L 3.5 - 5.1 08/[address] CHEM PANEL Sodium Lvl 142 meq/L 135 - 145 08/[address] CHEM PANEL Chloride Lvl 108 meq/L 95 - 109 08/[address] CHEM PANEL Creatinine 0.83 mg/dL 0.50 - 08/18 [facility] Lvl 1.40 [facility] CHEM PANEL AGAP 10.6 meq/L 10.0 - 08/18 [facility] 20.0 [facility] CHEM PANEL Magnesium Lvl 1.8 mg/dL 1.8 - 2.4 08/[address] CHEM PANEL Phosphorus 3.6 mg/dL 2.5 - 4.5 08/[address] HEMATOLOGY Neutrophils # 3.9 K/CMM 1.5 - 8.1 08/[address] HEMATOLOGY Eosinophils 2.5 % 0.0 - 4.0 08/[address] HEMATOLOGY Basophils 1.9 % 0.0 - 1.0 08/[address] HEMATOLOGY Monocytes # 0.6 K/CMM 0.0 - 0.8 08/[address] HEMATOLOGY Lymphocytes # 3.8 K/CMM 1.0 - 5.5 08/[address] HEMATOLOGY Eosinophils # 0.2 K/CMM 0.0 - 0.5 08/[address] HEMATOLOGY Basophils # 0.2 K/CMM 0.0 - 0.2 08/18 [facility] HEMATOLOGY Lymphocytes 44.0 % 20.0 - 08/18 [facility] 40.0 [facility] HEMATOLOGY Segs 45.3 % 45.0 - 08/18 [facility] 75.0 [facility] HEMATOLOGY Monocytes 6.3 % 2.0 - 12.0 08/18 [facility] HEMATOLOGY Hct 49.2 % 36.0 - 08/18 [facility] 48.0 [facility] HEMATOLOGY Hgb 17.0 g/dL 12.0 - 08/18 [facility] 16.0 [facility] HEMATOLOGY RBC 5.30 M/CMM 4.20 - 08/18 [facility] 5.40 [facility] HEMATOLOGY WBC 8.7 K/CMM 3.7 - 10.4 08/18 [facility] HEMATOLOGY MCV 92.8 fL 80.0 - 08/18 [facility] 98.0 [facility] HEMATOLOGY MPV 9.7 fL 7.4 - 10.4 08/18 [facility] HEMATOLOGY RDW 13.6 % 11.5 - 08/18 [facility] 14.5 [facility] HEMATOLOGY Platelet 161 K/CMM 133 - 450 08/18 [facility] HEMATOLOGY MCHC 34.6 g/dL 32.0 - 08/18 [facility] 36.0 [facility] HEMATOLOGY MCH 32.1 pg 27.0 - 08/18 [facility] 31.0 [facility] PARATHYROID Ca Norm WB 1.05 1.05 - 08/18 [facility] PROFILE mMol/L 1. [facility] PARATHYROID Ca Ion WB 1.06 1.05 - 08/18 [facility] PROFILE mMol/L . [facility] Neck soft Neck soft EXAM: CT NECK WITH CONTRAST 08/18 - [facility] tissue w tissue w - [facility] contrast CT contrast CT Center DATE: 08/18/2018 7:19 CDT Read by: Boaz Joseph Dictated Date/time: 08/18/18 18:20 Electronically Signed by: Boaz Joseph 08/18/18 18:35 FINAL REPORT INDICATION: eft-sided Brendan's syndrome. Please start scan below below aortic arch - eft-sided Brendan's syndrome. Please start scan below below aortic arch COMPARISON: Multiple examinations of the head of the neck since 2010 TECHNIQUE: Axial CT images of the neck were obtained after intravenous contrast. Reformatted images in the sagittal and coronal plane were included. IV contrast: 100 mL of Visipaque FINDINGS: The lung apices are clear. The cervical spine demonstrates anterior bridging osteophytes without significant decrease of the intervertebral disc spaces consistent with diffuse pathic skeletal hyperostosis (DISH) ossification of t he posterior longitudinal ligament of the tectorial membrane is also seen. The skull base demonstrates thickening of the periosteum with groundglass appearance of the planum sphenoid alley which has progressed since 2010 and based on the radiographic appearance from 08/17/2018 is consistent with Paget's disease. No abnormal adenopathies are seen. Postsurgical changes of posterior decompressive laminectomies at C2. The spinal canal remains tight better evaluation can be obtained with an MRI of the cervical spine. The airways patent. The suprahyoid neck spaces are unremarkable. Atheromatous changes are seen in the aortic arch and aberrant right subclavian artery is present. Atheromatous changes are seen in the carotid bifurcations of both sides without evidence of occlusions or stenosis. Retropharyngeal course of both internal carotid arteries in the neck is seen. The visualized adrenal circulation is normal. Surgical changes of a pterional craniotomy are seen. IMPRESSION: 1. Bony changes in the skull base which suggests hyperostosis and sclerosis from Paget's disease which cause decrease in diameter of the superior orbital fissure and that have progressed since 2010. 2. Changes of diffuse idiopathic skeletal hyperostosis in the cervical spine. 3. Postsurgical changes of pterional approach craniotomy and of laminectomies of C2 are seen. 4. Ventricular shunt catheter in place. Esophagus Esophagus BA EXAM: FLUOROSCOPY MODIFIED BARIUM SWALLOW 08/18 - [facility] BA swallow swallow /2019 - Medical function function This report was dictated by a Rolloff Truck Driver/ Fellow/Physician [employer]. I have personally Center video DX video DX reviewed the images as well as the interpretation and agree with the findings. DATE: 08/18/2018 7:00 CDT Read by: Rei Sanz MD Resident/Fellow/Physician [employer]: Rei Sanz MD Dictated Date/time: 08/18/18 09:57 Electronically Signed by: Tavia Carrera MD 08/19/18 09:17 FINAL REPORT INDICATION: - swallow. ADDITIONAL INFORMATION: None. COMPARISON: None. TECHNIQUE: Oral barium contrast of differing consistencies was given to the patient to assess swallowing mechanism. The study was performed in conjunction with speech pathology. FLUOROSCOPY TIME: 45 seconds Skin dose 4.43 mGy DISCUSSION: The patient was given barium contrast of different consistencies. Thin barium: Thin barium was initially given via straw and no penetration or aspiration was appreciated. When thin barium was given via straw to help clear the residue from the pudding barium, flash penetration was observed. Solid and pudding barium: No aspiration but pharyngeal residue noted. Barium tablet: Passed without difficulty. IMPRESSION: 1. Flash penetration of thin barium as described above. 2. Please also see detailed chart note by speech pathology. Chest w Chest w EXAM: CT CHEST WITH CONTRAST 08/17 [facility] contrast CT contrast CT /2019 - [facility] DATE: 08/17/2018 17:07 CDT Read by: Dexter Leal MD Dictated Date/time: 08/18/18 14:20 Electronically Signed by: Dexter Leal MD 08/18/18 14:38 FINAL REPORT INDICATION: eft-sided Brendan's syndrome. Please start scan below below aortic arch - left-sided Brendan's syndrome. Please start scan below below aortic arch TECHNIQUE: Volumetric CT acquisition of the chest, following intravenous contrast. Axial, sagittal and coronal reconstructions. Axial MIP reconstructions are created at the acquisition workstation. IV Contrast: 100 mL of Visipaque 320. 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 Lower Neck: Please refer to the separate report of neck soft tissue CT for further details about the neck findings. Heart and Great Vessels: Marked narrowing/stenosis of the right subclavian vein just below the clavicular (series 6, images 34-36). No cardiomegaly. No pericardial effusion. No coronary calcifications i dentified. Aortic atherosclerotic disease. Normal size of the ascending aorta and main pulmonary artery. 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 No central pulmonary embolism. Lymph Nodes: Multiple subcentimeter slightly prominent paratracheal and mediastinal lymph nodes are noted measuring up to 8mm in short axis. Lungs: Multiple bilateral centrilobular patchy and nodular groundglass nodules are noted notably in both lower lobes associated with mosaic attenuation in both lungs. Paraseptal emphysematous changes are seen in the left lower lobe. Mild bilateral bronchial thickening. Pleura: No pleural effusion or pneumothorax. Upper abdomen: Postcholecystectomy surgical clips are seen. Bones and Soft Tissues: Degenerative changes of the thoracic spine. No destructive focal osseous lesions. No acute osseous abnormalities. Diffuse osteopenic changes of the examined bones. IMPRESSION: 1. Multiple bilateral centrilobular patchy and nodular groundglass opacities associated with bronchial wall thickening and mosaic attenuation in both lungs raising the possibility of small airway disea se like infectious or inflammatory bronchiolitis. Chest CT follow-up in 3 months can be performed for evaluation following adequate treatment. 2. No evidence of mediastinal mass identified in the current study. 3. Multiple prominent to mildly enlarged mediastinal and paratracheal lymph nodes are noted measuring up to 8 mm in short axis. The may be benign or neoplastic. 4. Narrowing of the right subclavian vein just below the right clavicular. 5. 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 6. Please refer to the separate report of neck soft tissue CT for further details about the neck findings. 7. Aortic atherosclerotic disease. HEMATOLOGY Monocytes # 0.9 K/CMM 0.0 - 0.8 08/[address] HEMATOLOGY Eosinophils # 0.2 K/CMM 0.0 - 0.5 08/[address] HEMATOLOGY Lymphocytes # 5.1 K/CMM 1.0 - 5.5 08/[address] HEMATOLOGY Basophils # 0.1 K/CMM 0.0 - 0.2 08/[address] HEMATOLOGY Monocytes 7.6 % 2.0 - 12.0 08/[address] HEMATOLOGY Segs 44.9 % 45.0 - 08/17 [facility] 75.0 [facility] HEMATOLOGY Lymphocytes 44.2 % 20.0 - 08/17 [facility] 40.0 [facility] HEMATOLOGY Basophils 1.3 % 0.0 - 1.0 08/[address] HEMATOLOGY Eosinophils 2.0 % 0.0 - 4.0 08/[address] HEMATOLOGY Neutrophils # 5.2 K/CMM 1.5 - 8.1 08/[address] Skull 2 Skull 2 views Exam: Radiographs of the skull for shunt setting. - [facility] views DX - [facility] Read by: Boaz Joseph Dictated Date/time: 08/17/18 07:49 HISTORY: Evaluate shunt setting. Electronically Signed by: Boaz Tovar 08/17/18 07:57 FINAL REPORT Comparison with radiographs from August 19, 2011. TECHNIQUE: 3 views of the skull were obtained. FINDINGS: A Codman valve is placed, the shunt valve setting is approximately 150 cc of water. FINDINGS: Radiographs for shunt valve setting. ELECTROLYTE AGAP 11.9 meq/L 10.0 - 08/16 [facility] S 20.0 [facility] ELECTROLYTE eGFR 64 08/16 Result Comment: The eGFR is calculated using the CKD-EPI formula. In most young, healthy individuals the eGFR will be >90 mL/ min/1.73m2. The eGFR declines with age. An eGFR of 60-89 may be normal in [facility] mL/min/1.7 some populations, particularly the elderly, for whom the CKD-EPI formula has not been extensively validated. Use of the eGFR is not recommended in the following populations: [address] Individuals with unstable creatinine concentrations, including patients and those with serious co-morbid conditions. Patients with extremes in muscle mass or diet. The data above are obtained from the National Kidney Disease Education Program (NKDEP) which additionally recommends that when the eGFR is used in patients with extremes of body mass index for purposes of drug dosing, the eGFR should be multiplied by the estimated BMI. ELECTROLYTE Sodium Lvl 142 meq/L 135 - 145 08/[address] ELECTROLYTE Potassium Lvl 3.9 meq/L 3.5 - 5.1 08/[address] ELECTROLYTE Chloride Lvl 104 meq/L 95 - 109 08/[address] ELECTROLYTE CO2 30 meq/L 24 - 32 08/[address] ELECTROLYTE Calcium Lvl 9.6 mg/dL 8.5 - 10.5 08/[address] ELECTROLYTE BUN 16 mg/dL 7 - 22 08/[address] ELECTROLYTE Glucose Lvl 121 mg/dL 70 - 99 08/[address] ELECTROLYTE Creatinine 0.91 mg/dL 0.50 - 08/16 [facility] S Lvl 1.40 /2018 [facility] HEMATOLOGY RBC Morph Normal 08/16 [facility] (08/16/18 3:35 PM) [place] HEMATOLOGY Plt Morph Normal 08/16 [facility] (08/16/18 3:35 PM) [place] HEMATOLOGY PTT 32.0 s 22.9 - 08/16 [facility] 35.8 [facility] HEMATOLOGY PT 12.6 s 12.0 - 08/16 [facility] 14.7 [facility] HEMATOLOGY INR 0.96 0.85 - 08/16 [facility] 1.17 [facility] Brain/Neck Brain/Neck Exam: CTA HEAD AND NECK 08/16 - [facility] CTA CTA - [facility] This report was dictated by a Rolloff Truck Driver/Fellow/Physician [employer]. I have personally Center reviewed the images as well as the interpretation and agree with the findings. DATE: 08/16/2018 7:42 PM CDT Read by: Savage Monson MD Resident/Fellow/Physician [employer]worker [employer]: Savage Monson MD Dictated Date/time: 08/16/18 21:56 Electronically Signed by: Alyx Murrell MD 08/16/18 22:52 FINAL REPORT INDICATION: - stroke symptoms COMPARISON: CT brain same day, MRI brain 07/07/2012 TECHNIQUE: Rapid acquisition spiral CT images of the brain and neck were obtained between the skull base and the cranial vertex during intravenous infusion of iodinated contrast for the purposes of CT angiography. 3-D CT angiographic images are created using maximum intensity projection technique at the acquisition workstation. The source images are also presented for interpretation. IV contrast: 60 mL Visipaque 320 Total DLP: 724 mGycm. DISCUSSION: Aberrant right subclavian artery. Both common carotid arteries are patent from their origin with usual course and caliber. Eccentric calcified plaque at the origin of the right internal carotid artery not resulting in significant stenosis by NASCET criteria. Concentric calcified plaque at the origin of the left internal car otid artery not resulting in significant stenosis by NASCET criteria. Retropharyngeal medialization of both internal carotid arteries. Both intracranial internal carotid arteries are patent. There is diffuse luminal narrowing in the supraclinoid right internal carotid artery. 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 Both anterior and middle cerebral arteries are patent. Both cerebral arteries are patent from their origin. The left vertebral artery is dominant. The intradural vertebral arteries and basilar artery are patent. Both fha underwriter are patent. Nonflow limiting stenot ic lesions in the left P2 and right P3-P4 segment. No AV malformation or aneurysms. IMPRESSION: Atheromatous disease in the carotid bulbs not resulting in significant stenosis by NASCET criteria. Greater than 50% stenosis in the para and supraclinoid right internal carotid artery. No flow-limiting stenotic lesions in both fha underwriter. Aberrant right subclavian artery Qualitative and quantitative assessments of stenosis in the carotid bulbs is made referencing the distal internal carotid artery Brain wo Brain wo EXAM: CT BRAIN WITHOUT CONTRAST 08/16 - [facility] contrast CT contrast CT /2018 - Medical This report was dictated by a Rolloff Truck Driver/Fellow/Physician Farmworker [employer]. I have personally Center reviewed the images as well as the interpretation and agree with the findings. DATE: 08/16/2018 4:26 PM CDT Read by: Savage Monson MD Resident/Fellow/Physician Farmworker [employer]: Savage Monson MD Dictated Date/time: 08/16/18 17:18 Electronically Signed by: Omid Martines MD 08/16/18 18:15 FINAL REPORT INDICATION: - stroke symptoms COMPARISON: 08/20/2011 TECHNIQUE: Routine axial images of the brain were obtained using a conventional ct scanner. Reformatted images in the sagittal and coronal plane were included. IV contrast: None. FINDINGS: No intra-axial mass or mass effect is present. No territorial infarct is detected. Again identified is a ventriculoperitoneal shunt on the left entering from a frontal approach and having its tip across midline within the frontal horn of the right lateral ventricle. Since the previous examination the catheter has decompressed the ventricular system. Although not slitlike, the size of the ventricles is smaller than would be expected for a patient this age. On the other hand, given th e absence of volume loss elsewhere this may reflect the patient's normal baseline. Again identified is the hyperdense mass along the planum sphenoid alley. This is partly better visualized due to differences in slice location but the lesion appears to be larger as well measuring appro ximately 24 x 22 mm (transverse by AP) craniocaudal diameter as measured on the sagittal images is up to 6 mm while the sagittal images demonstrate involvement more posteriorly than visible on a single axial image with an AP diameter therefore being approximately 24-25 mm in this plane. No intraparenchymal or extra-axial hemorrhage has occurred. Incidental imaging of the orbits, paranasal sinuses, skull, and skull base also demonstrates no interval change. IMPRESSION: 1. No acute intracranial abnormality. No acute intracranial hemorrhage. 2. Postoperative changes of right frontal craniotomy and right frontal lobe encephalomalacia from remote right frontal mass resection. 3. Left transfrontal ventricular shunt in place. No evidence of hydrocephalus. Conversely, there is decompression of the ventricular system by the ventriculoperitoneal shunt in the interim. 4. 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 AP diameter is now up to 2.4 cm, previously 2.1 cm. BEDSIDE Gluc POC 148.0 65 - 110 03/25 [place] 1Interpretive [facility] GLUCOSE [place] mg/dL Data: Medical TESTING Center Upper Reportable Limit: 200 mg/dL. BEDSIDE Comment1 Notify 03/25 [facility] Dougie GLUCOSE RN/ Medical TESTING Center BEDSIDE Comment1 Notify 03/25 [facility] GLUCOSE RN/ /2010 Medical TESTING Center BEDSIDE Gluc POC 140.0 65 - 110 03/25 [place] 2Interpretive [facility] GLUCOSE [place] mg/dL Data: Medical TESTING Center Upper Reportable Limit: 200 mg/dL. BEDSIDE Comment1 Notify 03/25 [facility] [place] GLUCOSE RN/ /2010 Medical TESTING Center BEDSIDE Gluc POC 137.0 65 - 110 03/25 [place] 3Interpretive [facility] GLUCOSE [place] mg/dL Data: Medical TESTING Center Upper Reportable Limit: 200 mg/dL. CHEMISTRY Globulin 3.3 g/dL 2.0 - 4.0 03/25 Normal [facility] Center CHEMISTRY Total Protein 5.4 g/dL 6.4 - 8.4 03/25 LOW [facility] Center CHEMISTRY Albumin Lvl 2.1 g/dL 3.5 - 5.0 03/25 LOW [facility] Center CHEMISTRY ALT 131.0 U/L 0 - 65 03/25 [facility] Medical Center CHEMISTRY Alk Phos 360.0 U/L 39 - 136 03/25 [facility] Medical Center CHEMISTRY A/G Ratio 0.6 0.7 - 1.6 03/25 LOW [facility] CHEMISTRY AST 144.0 U/L 0 - 37 03/25 [facility] CHEMISTRY Bili Indirect 0.2 mg/dL 0.0 - 1.0 03/25 Normal [facility] CHEMISTRY Bili Total 0.3 mg/dL 0.2 - 1.3 03/25 Normal [facility] CHEMISTRY Bili Direct 0.1 mg/dL 0.0 - 0.3 03/25 Normal [facility] CHEMISTRY Magnesium Lvl 2.4 mg/dL 1.8 - 2.4 03/25 Normal [facility] CHEMISTRY Potassium Lvl 4.1 meq/L 3.5 - 5.1 03/25 [facility] CHEMISTRY Chloride Lvl 107.0 95 - 109 03/25 [facility] meq/L Medical [place] CHEMISTRY Sodium Lvl 140.0 135 - 145 03/25 Normal [facility] meq/L Medical [place] CHEMISTRY Calcium Lvl 8.0 mg/dL 8.5 - 10.5 03/25 LOW [facility] CHEMISTRY CO2 19.0 meq/L 24 - 32 03/25 [facility] CHEMISTRY Glucose Lvl 104.0 03/25 NA 4Interpretive [facility] mg/dL Data: [facility] Ranges : 0 - 7 days : 41 - 90 mg/dL7 days - 150 yrs : 70 - 99 mg/dL (fasting), based on the clinical recommendatio ns of the [place] [employer]. CHEMISTRY BUN 21.0 mg/dL 7 - 22 03/25 Normal [facility] CHEMISTRY Creatinine 1.7 mg/dL 0.5 - 1.4 03/25 [facility] Lvl [facility] CHEMISTRY AGAP 18.1 meq/L 10.0 - 03/25 Normal [place] 20.0 [facility] HEMATOLOGY Monocytes # 0.9 K/CMM 0.0 - 0.8 03/25 [facility] HEMATOLOGY Basophils # 0.1 K/CMM 0.0 - 0.2 03/25 Normal [facility] HEMATOLOGY Eosinophils 16.0 % 0.0 - 4.0 03/25 [facility] HEMATOLOGY Monocytes 9.1 % 2.0 - 12.0 03/25 Normal Medical [place] HEMATOLOGY Basophils 1.5 % 0.0 - 1.0 03/25 [place] [facility] HEMATOLOGY Segs-Bands # 4.3 K/CMM 1.5 - 8.1 03/25 Normal [facility] HEMATOLOGY Lymphocytes # 3.2 K/CMM 1.0 - 5.5 03/25 Normal [facility] HEMATOLOGY Eosinophils # 1.6 K/CMM 0.0 - 0.5 03/25 [place] [facility] HEMATOLOGY Lymphocytes 31.4 % 20.0 - 03/25 Normal [place] 40.0 [facility] HEMATOLOGY Segs 42.0 % 45.0 - 03/25 LOW [place] 75.0 [facility] HEMATOLOGY RDW 15.0 % 11.5 - 03/25 [facility] [place] 14.5 [facility] HEMATOLOGY MCHC 33.9 g/dL 32.0 - 03/25 Normal [facility] 36.0 [facility] HEMATOLOGY MCH 31.0 pg 27.0 - 03/25 Normal [facility] 31.0 [facility] HEMATOLOGY MCV 91.4 fL 81.0 - 03/25 Normal [facility] 99.0 [facility] HEMATOLOGY Hct 36.8 % 36.0 - 03/25 Normal [place] 48.0 [facility] HEMATOLOGY Hgb 12.5 g/dL 12.0 - 03/25 Normal [place] 16.0 [facility] HEMATOLOGY MPV 10.0 fL 7.4 - 10.4 03/25 Normal [facility] HEMATOLOGY Platelet 157.0 133 - 450 03/25 Normal [place] K/CMM /2010 [facility] HEMATOLOGY RBC 4.03 M/CMM 4.20 - 03/25 LOW [place] 5.40 /2010 Medical [place] HEMATOLOGY WBC 10.1 K/CMM 3.7 - 10.4 03/25 Normal [facility] CHEMISTRY A/G Ratio 0.7 0.7 - 1.6 03/24 Normal [facility] CHEMISTRY Bili Indirect 0.2 mg/dL 0.0 - 1.0 03/24 Normal [facility] CHEMISTRY Globulin 3.2 g/dL 2.0 - 4.0 03/24 Normal Medical Center CHEMISTRY Total Protein 5.6 g/dL 6.4 - 8.4 03/24 [facility] Medical Center CHEMISTRY Albumin Lvl 2.4 g/dL 3.5 - 5.0 03/24 LOW Medical [facility] CHEMISTRY Bili Direct 0.2 mg/dL 0.0 - 0.3 03/24 Normal Medical [facility] CHEMISTRY AST 345.0 U/L 0 - 37 03/24 [facility] Medical Center CHEMISTRY Alk Phos 469.0 U/L 39 - 136 03/24 [facility] Medical Center CHEMISTRY Bili Total 0.4 mg/dL 0.2 - 1.3 03/24 Normal [facility] CHEMISTRY ALT 192.0 U/L 0 - 65 03/24 [facility] Medical Center CHEMISTRY Magnesium Lvl 1.6 mg/dL 1.8 - 2.4 03/24 [facility] Center CHEMISTRY AGAP 15.6 meq/L 10.0 - 03/24 Normal [facility] 20.0 Medical Center CHEMISTRY CO2 21.0 meq/L 24 - 32 03/24 LOW [facility] CHEMISTRY Potassium Lvl 3.6 meq/L 3.5 - 5.1 03/24 Normal Medical Center CHEMISTRY Chloride Lvl 109.0 95 - 109 03/24 Normal [facility] meq/L Medical Center CHEMISTRY Calcium Lvl 7.7 mg/dL 8.5 - 10.5 03/24 [facility] Center CHEMISTRY Sodium Lvl 142.0 135 - 145 03/24 Normal [facility] meq/L Medical Center CHEMISTRY BUN 23.0 mg/dL 7 - 22 03/24 [facility] Medical Center CHEMISTRY Creatinine 1.7 mg/dL 0.5 - 1.4 03/24 [facility] Lvl Medical Center CHEMISTRY Glucose Lvl 119.0 03/24 NA 5Interpretive [facility] mg/dL Data: Medical Reference Center Ranges : 0 - 7 days : 41 - 90 mg/dL7 days - 150 yrs : 70 - 99 mg/dL (fasting), based on the clinical recommendatio ns of the [place] [employer]. HEMATOLOGY PT 14.8 s 12.0 - 03/24 [facility] [place] 14.7 Medical Center HEMATOLOGY INR 1.16 0.85 - 03/24 Normal 7Interpretive [facility] [place] 1.17 /2011 Data: Medical RECOMMENDED Center RANGES FOR PROTIME INR: 2.0-3.0 for most medical and surgical thromboemboli c states. 2.5-3.5 for artificial heart valves and recurrent embolism.INR SHOULD BE USED ONLY FOR PATIENTS ON STABLE ANTICOAGULANT THERAPY. HEMATOLOGY PTT 34.9 s 22.9 - 03/24 Normal 8Interpretive [facility] 35.8 Data: [facility] Range: 57 - 92 Seconds HEMATOLOGY Basophils # 0.1 K/CMM 0.0 - 0.2 03/24 Normal [facility] HEMATOLOGY Segs-Bands # 4.1 K/CMM 1.5 - 8.1 03/24 Normal [facility] HEMATOLOGY Lymphocytes # 2.8 K/CMM 1.0 - 5.5 03/24 Normal [facility] HEMATOLOGY Monocytes # 0.8 K/CMM 0.0 - 0.8 03/24 Normal [facility] HEMATOLOGY Eosinophils # 1.8 K/CMM 0.0 - 0.5 03/24 [facility] HEMATOLOGY Lymphocytes 28.5 % 20.0 - 03/24 Normal [facility] 40.0 [facility] HEMATOLOGY Monocytes 8.6 % 2.0 - 12.0 03/24 Normal [facility] HEMATOLOGY Eosinophils 19.0 % 0.0 - 4.0 03/24 [facility] HEMATOLOGY Basophils 1.3 % 0.0 - 1.0 03/24 [facility] HEMATOLOGY Segs 42.6 % 45.0 - 03/24 LOW [facility] 75.0 [facility] HEMATOLOGY WBC 9.7 K/CMM 3.7 - 10.4 03/24 Normal [facility] HEMATOLOGY RBC 3.67 M/CMM 4.20 - 10 [facility] 5.40 [facility] HEMATOLOGY MCHC 34.9 g/dL 32.0 - 03/24 [facility] 36.0 [facility] HEMATOLOGY RDW 15.1 % 11.5 - 03/24 [facility] 14.5 [facility] HEMATOLOGY Platelet 169.0 133 - 450 03/24 Normal [facility] K/CMM /2010 [facility] HEMATOLOGY MCV 90.5 fL 81.0 - 03/24 [facility] 99.0 Medical Center HEMATOLOGY MCH 31.6 pg 27.0 - 03/24 [facility] 31.0 Medical Center HEMATOLOGY MPV 9.5 fL 7.4 - 10.4 03/24 Normal [facility] HEMATOLOGY Hgb 11.6 g/dL 12.0 - 03/24 [facility] 16. [facility] HEMATOLOGY Hct 33.2 % 36.0 - 03/24 [facility] 48.0 Medical Center IMMUNOLOGY Hep Bs Ag Negative >Negative 03/24 NA Medical *NA* Center (03/24/2011 05:08:00) ?? CHEMISTRY Amylase Lvl 36.0 U/L 25 - 115 03/23 Normal Medical Center CHEMISTRY Lipase Lvl 242.0 U/L 73 - 393 03/23 Normal [facility] Center CHEMISTRY Glucose Lvl 97.0 mg/dL 03/23 NA 6Interpretive Data: [facility] Ranges : 0 - 7 days : 41 - 90 mg/dL7 days - 150 yrs : 70 - 99 mg/dL (fasting), based on the clinical recommendatio ns of the [place] [employer]. CHEMISTRY BUN 22.0 mg/dL 03/23 Normal [facility] Center CHEMISTRY Creatinine 1.5 mg/dL 0.5 - 1.4 03/23 [facility] Lvl Medical Center CHEMISTRY CO2 20.0 meq/L 24 - 32 03/23 [facility] Medical Center CHEMISTRY Sodium Lvl 144.0 135 - 145 03/23 Normal [facility] meq/L Medical Center CHEMISTRY Calcium Lvl 7.8 mg/dL 8.5 - 10.5 03/23 [facility] Medical Center CHEMISTRY Chloride Lvl 108.0 95 - 109 03/23 Normal [facility] meq/L Medical Center CHEMISTRY Total Protein 4.7 g/dL 6.4 - 8.4 03/23 [facility] Center CHEMISTRY AGAP 19.2 meq/L 10.0 - 03/23 Normal [facility] 20. Medical Center CHEMISTRY Globulin 2.8 g/dL 2.0 - 4.0 03/23 Normal Medical Center CHEMISTRY Albumin Lvl 1.9 g/dL 3.5 - 5.0 03/23 LOW [facility] CHEMISTRY ALT 194.0 U/L 0 - 65 03/23 [facility] CHEMISTRY A/G Ratio 0.7 0.7 - 1.6 03/23 Normal [facility] CHEMISTRY B/C Ratio 15.0 6 - 25 03/23 Normal [facility] CHEMISTRY Bili Total 1.0 mg/dL 0.2 - 1.3 03/23 Normal [facility] CHEMISTRY AST 789.0 U/L 0 - 37 03/23 [facility] CHEMISTRY Alk Phos 289.0 U/L 39 - 136 03/23 [place] [facility] CHEMISTRY Potassium Lvl 3.2 meq/L 3.5 - 5.1 03/23 LOW [facility] HEMATOLOGY RDW 14.8 % 11.5 - 03/23 [facility] 14. [facility] HEMATOLOGY MPV 9.8 fL 7.4 - 10.4 03/23 Normal [facility] HEMATOLOGY Platelet 189.0 133 - 450 03/23 Normal [facility] K/CMM /2010 [facility] HEMATOLOGY MCH 31.0 pg 27.0 - 03/23 Normal [facility] 31.0 [facility] HEMATOLOGY MCHC 34.1 g/dL 32.0 - 03/23 Normal [facility] 36.0 [facility] HEMATOLOGY Hct 32.7 % 36.0 - 03/23 [facility] 48.0 [facility] HEMATOLOGY MCV 91.0 fL 81.0 - 03/23 Normal [facility] 99.0 [facility] HEMATOLOGY Hgb 11.2 g/dL 12.0 - 03/23 [facility] 16.0 [facility] HEMATOLOGY WBC 6.7 K/CMM 3.7 - 10.4 03/23 Normal [facility] HEMATOLOGY RBC 3.6 M/CMM 4.20 - 03/23 [facility] 5.40 [facility] HEMATOLOGY Large Plt Slight >None Seen 03/23 ABN Medical *ABN* Center (03/23/2011 05:24:00) ?? HEMATOLOGY Lymphocytes # 2.1 K/CMM 1.0 - 5.5 03/23 Normal [facility] HEMATOLOGY Segs-Bands # 2.7 K/CMM 1.5 - 8.1 03/23 Normal [facility] HEMATOLOGY Monocytes # 0.9 K/CMM 0.0 - 0.8 03/23 [facility] HEMATOLOGY Plt Morph Normal 03/23 Normal Medical (03/23/2011 05:24:00) ?? Center HEMATOLOGY Eosinophils 15.0 % 0.0 - 4.0 03/23 [facility] HEMATOLOGY Atypical 0.0 % <<=0.0 03/23 Normal [facility] Lymph [facility] HEMATOLOGY Bands 1.0 % 0.0 - 11.0 03/23 Normal [facility] HEMATOLOGY Basophils 1.0 % 0.0 - 1.0 03/23 Normal [facility] HEMATOLOGY Eosinophils # 1.0 K/CMM 0.0 - 0.5 03/23 [facility] HEMATOLOGY Lymphocytes 31.0 % 20.0 - 03/23 Normal [facility] 40.0 [facility] HEMATOLOGY Monocytes 13.0 % 2.0 - 12.0 03/23 [facility] HEMATOLOGY Segs 39.0 % 45.0 - 03/23 LOW [facility] 75.0 [facility] HEMATOLOGY Basophils # 0.1 K/CMM 0.0 - 0.2 03/23 Normal [facility] IMMUNOLOGY Prealbumin 10.0 mg/dL 18.0 - 03/23 LOW [facility] 45.0 [facility] URINALYSIS UA <=1.0 0.1 - 1.0 03/22 [facility] Urobilinogen mg/dL Medical
*NA*< Center br/>(03/22 17:20:00) <sup>??</s up> URINALYSIS UA Hyal Cast 3.0 /LPF 0 - 2 03/22 [facility] URINALYSIS UA Amorph Occasional /HPF >None Seen 03/22 [facility]* Center (03/22/2011 17:20:00) ?? URINALYSIS UA Mucus Few /LPF >None Seen 03/22 [facility]* Center (03/22/2011 17:20:00) ?? URINALYSIS UA Sq Epi Few /LPF >Few 03/22 [facility]* [place] (03/22/2011 17:20:00) ?? URINALYSIS UA RBC null 0 - 2 03/22 Normal [facility] URINALYSIS UA Nitrite Negative >Negative 03/22 Normal [facility] (03/22/2011 17:20:00) ?? Center URINALYSIS UA Leuk Est Negative >Negative 03/22 Normal [facility] (03/22/2011 17:20:00) ?? Center URINALYSIS UA Protein 200 mg/dL >Negative 03/[address] [facility] [place] (03/22/2011 17:20:00) ?? URINALYSIS UA Ketones 10 mg/dL >Negative 03/[address] [facility] [place] (03/22/2011 17:20:00) ?? URINALYSIS UA Bili Negative >Negative 03/22 [facility] [place] (03/22/2011 17:20:00) ?? URINALYSIS UA Blood Moderate >Negative 03/[address] [facility] [place] (03/22/2011 17:20:00) ?? URINALYSIS UA Glucose Negative mg/dL >Negative 03/22 [facility] [place] (03/22/2011 17:20:00) ?? URINALYSIS UA Spec Grav 1.016 <<=1.030 03/22 Normal [facility] URINALYSIS UA pH 5.5 5.0 - 8.0 03/22 Normal [facility] URINALYSIS UA Color Yellow >Yellow 03/22 [facility] [place] (03/22/2011 17:20:00) ?? URINALYSIS UA Turbidity Slight >Clear 03/[address] [facility] [place] (03/22/2011 17:20:00) ?? CHEMISTRY Bili Indirect 0.2 mg/dL 0.0 - 1.0 03/22 Normal [facility] CHEMISTRY Bili Direct 0.1 mg/dL 0.0 - 0.3 03/22 Normal [facility] IMMUNOLOGY Hep A IgM Negative >Negative 03/22 [facility] [place] (03/22/2011 09:40:00) ?? IMMUNOLOGY Hep B Core Negative >Negative 03/22 [facility] [place] (03/22/2011 09:40:00) ?? IMMUNOLOGY Hep C Ab Negative >Negative 03/22 NA Medical *NA* Center (03/22/2011 09:40:00) ?? IMMUNOLOGY Hep Bs Ag See Note 9 >Negative 03/22 Normal 9Result Comment: Medical (03/22/2011 09:40:00) ?? QNSTalked to Center Nyasia Santana will recollect in the [id number] CHEMISTRY T4 Free 1.67 ng/dL 0.76 - 03/22 [facility] [place] 1.46 /2010 Medical Center CHEMISTRY TSH 0.044 0.360 - 03/22 [facility] uIU/mL 3.740 Medical Center BEDSIDE Comment1 Sliding 03/15 NA [facility] GLUCOSE Scale Medical TESTING Center BEDSIDE Gluc POC 152.0 65 - 110 03/15 [place] 1Interpretive [facility] GLUCOSE [place] mg/dL /2010 Data: Medical TESTING Center Upper Reportable Limit: 200 mg/dL. BEDSIDE Comment1 Notify 03/15 [facility] GLUCOSE RN/MD Medical TESTING Center BEDSIDE Gluc POC 116.0 65 - 110 03/15 [place] 2Interpretive [facility] GLUCOSE [place] mg/dL /2010 Data: Medical TESTING Center Upper Reportable Limit: 200 mg/dL. CHEMISTRY AGAP 18.5 meq/L 10.0 - 03/15 Normal [facility] 20.0 Medical Center CHEMISTRY Potassium Lvl 3.5 meq/L 3.5 - 5.1 03/15 Normal [facility] CHEMISTRY CO2 21.0 meq/L 24 - 32 03/15 LOW [facility] CHEMISTRY Sodium Lvl 147.0 135 - 145 03/15 [facility] meq/L Medical Center CHEMISTRY Creatinine 1.4 mg/dL 0.5 - 1.4 03/15 Normal [facility] Lvl Medical Center CHEMISTRY Chloride Lvl 111.0 95 - 109 03/15 [facility] meq/L Medical Center CHEMISTRY Calcium Lvl 8.1 mg/dL 8.5 - 10.5 03/15 LOW Medical Center CHEMISTRY Glucose Lvl 97.0 mg/dL 03/15 NA 12Interpretiv e Data: [facility] Ranges : 0 - 7 days : 41 - 90 mg/dL7 days - 150 yrs : 70 - 99 mg/dL (fasting), based on the clinical recommendatio ns of the [place] [employer]. CHEMISTRY BUN 21.0 mg/dL 7 - 22 03/15 [facility] CHEMISTRY Magnesium Lvl 1.7 mg/dL 1.8 - 2.4 03/15 [facility] HEMATOLOGY Lymphocytes 16.7 % 20.0 - 03/15 [facility] [place] 40.0 [facility] HEMATOLOGY Monocytes 12.4 % 2.0 - 12.0 03/15 [facility] HEMATOLOGY Segs 63.3 % 45.0 - 03/15 [facility] [place] 75.0 [facility] HEMATOLOGY Eosinophils # 0.6 K/CMM 0.0 - 0.5 03/15 [facility] HEMATOLOGY Monocytes # 1.1 K/CMM 0.0 - 0.8 03/15 [facility] HEMATOLOGY Basophils # 0.1 K/CMM 0.0 - 0.2 03/15 [facility] HEMATOLOGY Lymphocytes # 1.5 K/CMM 1.0 - 5.5 03/15 [facility] HEMATOLOGY Segs-Bands # 5.8 K/CMM 1.5 - 8.1 03/15 [facility] HEMATOLOGY Basophils 1.3 % 0.0 - 1.0 03/15 [facility] HEMATOLOGY Eosinophils 6.3 % 0.0 - 4.0 03/15 [facility] HEMATOLOGY MCH 31.6 pg 27.0 - 03/15 [facility] [place] 31.0 [facility] HEMATOLOGY RBC 3.56 M/CMM 4.20 - 03/15 [facility] [place] 5.40 [facility] HEMATOLOGY MCV 90.7 fL 81.0 - 03/15 [facility] 99.0 [facility] HEMATOLOGY Hct 32.3 % 36.0 - 03/15 [facility] 48.0 [facility] HEMATOLOGY Hgb 11.3 g/dL 12.0 - 03/15 [facility] [place] 16.0 [facility] HEMATOLOGY WBC 9.1 K/CMM 3.7 - 10.4 03/15 [facility] HEMATOLOGY MPV 10.1 fL 7.4 - 10.4 03/15 [facility] HEMATOLOGY Platelet 154.0 133 - 450 03/15 Normal [facility] K/CMM /2010 Medical Center HEMATOLOGY RDW 14.7 % 11.5 - 03/15 [place] 14.5 Medical Center HEMATOLOGY MCHC 34.8 g/dL 32.0 - 03/15 Normal [facility] 36.0 /2010 Medical Center BEDSIDE Comment1 Notify 03/15 NA [facility] GLUCOSE RN/MD /2010 Medical TESTING Center BEDSIDE Gluc POC 126.0 65 - 110 03/15 [place] 3Interpretive [facility] GLUCOSE [place] mg/dL /2010 Data: Medical TESTING Center Upper Reportable Limit: 200 mg/dL. BEDSIDE Comment2 Sliding 03/14 NA [facility] GLUCOSE Scale Medical TESTING Center BEDSIDE Comment2 Sliding 03/14 NA [facility] GLUCOSE Scale Medical TESTING Center CHEMISTRY T4 Free 2.0 ng/dL 0.76 - 03/14 [place] 1.46 Medical Center CHEMISTRY TSH 0.042 0.360 - 03/14 LOW [facility] uIU/mL 3.740 Medical Center CHEMISTRY Total CK 31.0 U/L 12 - 191 03/14 Normal Medical Center CHEMISTRY Lactic Acid 1.6 mMol/L 0.5 - 2.2 03/14 Normal [facility] Lvl Medical Center HEMATOLOGY INR 1.15 0.85 - 03/14 Normal 53Interpretiv [facility] 1.17 /2010 e Data: [facility] Center RANGES FOR PROTIME INR: 2.0-3.0 for most medical and surgical thromboemboli c states. 2.5-3.5 for artificial heart valves and recurrent embolism.INR SHOULD BE USED ONLY FOR PATIENTS ON STABLE ANTICOAGULANT THERAPY. HEMATOLOGY PT 14.7 s 12.0 - 03/14 Normal [facility] 14.7 [facility] Center HEMATOLOGY PTT 30.3 s 22.9 - 03/14 Normal 54Interpretiv [facility] 35.8 /2010 e Data: [facility] Heparin Center Therapeutic Range: 57 - 92 Seconds CHEMISTRY Lipase Lvl 49.0 U/L 73 - 393 03/14 LOW 28Result [facility] Comment: Medical Collection Center date/time has been modified to: 01:50:00. Previous collection date/time: 01:50:00. CHEMISTRY Amylase Lvl 23.0 U/L 25 - 115 03/14 LOW 27Result MH Comment: Medical Collection Center date/time has been modified to: 01:50:00. Previous collection date/time: 01:50:00. CHEMISTRY Phosphorus 4.3 mg/dL 2.5 - 4.5 03/14 Normal 21Result Comment: Medical Collection Center date/time has been modified to: 01:50:00. Previous collection date/time: 01:50:00. CHEMISTRY A/G Ratio 0.8 0.7 - 1.6 03/14 Normal 19Result Comment: Medical Collection Center date/time has been modified to: 01:50:00. Previous collection date/time: 01:50:00. CHEMISTRY Globulin 3.4 g/dL 2.0 - 4.0 03/14 Normal 18Result Comment: Medical Collection Center date/time has been modified to: 01:50:00. Previous collection date/time: 01:50:00. CHEMISTRY ALT 33.0 U/L 0 - 65 03/14 Normal 23Result Comment: Medical Collection Center date/time has been modified to: 01:50:00. Previous collection date/time: 01:50:00. CHEMISTRY AST 27.0 U/L 0 - 37 03/14 Normal 24Result Comment: Medical Collection Center date/time has been modified to: 01:50:00. Previous collection date/time: 01:50:00. CHEMISTRY Bili Total 0.4 mg/dL 0.2 - 1.3 03/14 Normal 26Result Comment: Medical Collection Center date/time has been modified to: 01:50:00. Previous collection date/time: 01:50:00. CHEMISTRY Total Protein 6.2 g/dL 6.4 - 8.4 03/14 LOW 16Result Comment: Medical Collection Center date/time has been modified to: 01:50:00. Previous collection date/time: 01:50:00. CHEMISTRY Alk Phos 109.0 U/L 39 - 136 03/14 Normal 25Result [facility] Comment: Medical Collection Center date/time has been modified to: 01:50:00. Previous collection date/time: 01:50:00. CHEMISTRY Albumin Lvl 2.8 g/dL 3.5 - 5.0 03/14 LOW 17Result [facility] Comment: Medical Collection Center date/time has been modified to: 01:50:00. Previous collection date/time: 01:50:00. CHEMISTRY B/C Ratio 14.0 6 - 25 03/14 Normal 11Result [facility] Comment: Medical Collection Center date/time has been modified to: 01:50:00. Previous collection date/time: 01:50:00. CHEMISTRY Calcium Lvl 8.4 mg/dL 8.5 - 10.5 03/14 LOW 20Result [facility] Comment: Medical Collection Center date/time has been modified to: 01:50:00. Previous collection date/time: 01:50:00. CHEMISTRY AGAP 21.8 meq/L 10.0 - 03/14 [place] 8Result [facility] 20.0 Comment: Medical Collection Center date/time has been modified to: 01:50:00. Previous collection date/time: 01:50:00. CHEMISTRY CO2 19.0 meq/L 24 - 32 03/14 LOW 7Result Comment: Medical Collection Center date/time has been modified to: 01:50:00. Previous collection date/time: 01:50:00. CHEMISTRY Chloride Lvl 105.0 95 - 109 03/14 Normal 6Result [facility] meq/L Comment: Medical Collection Center date/time has been modified to: 01:50:00. Previous collection date/time: 01:50:00. CHEMISTRY Sodium Lvl 142.0 135 - 145 03/14 Normal 4Result [facility] meq/L Comment: Medical Collection Center date/time has been modified to: 01:50:00. Previous collection date/time: 01:50:00. CHEMISTRY Potassium Lvl 3.8 meq/L 3.5 - 5.1 03/14 Normal 5Result Comment: Medical Collection Center date/time has been modified to: 01:50:00. Previous collection date/time: 01:50:00. CHEMISTRY BUN 20.0 mg/dL 7 - 22 03/14 Normal 10Result Comment: Medical Collection Center date/time has been modified to: 01:50:00. Previous collection date/time: 01:50:00. CHEMISTRY Creatinine 1.4 mg/dL 0.5 - 1.4 03/14 Normal 9Result [facility] Lvl Comment: Medical Collection Center date/time has been modified to: 01:50:00. Previous collection date/time: 01:50:00. CHEMISTRY Glucose Lvl 91.0 mg/dL 03/14 NA 15Interpretiv e Data: [facility] Ranges : 0 - 7 days : 41 - 90 mg/dL7 days - 150 yrs : 70 - 99 mg/dL (fasting), based on the clinical recommendatio ns of the [place] [employer]. CHEMISTRY Magnesium Lvl 1.2 mg/dL 1.8 - 2.4 03/14 LOW 22Result Comment: Medical Collection Center date/time has been modified to: 01:50:00. Previous collection date/time: 01:50:00. HEMATOLOGY Monocytes 10.3 % 2.0 - 12.0 03/14 Normal 41Result Comment: Medical Collection Center date/time has been modified to: 01:50:00. Previous collection date/time: 01:50:00. HEMATOLOGY Eosinophils 6.2 % 0.0 - 4.0 03/14 [place] 42Result Comment: Medical Collection Center date/time has been modified to: 01:50:00. Previous collection date/time: 01:50:00. HEMATOLOGY Segs 61.3 % 45.0 - 03/14 Normal 39Result [facility] 75.0 Comment: Medical Collection Center date/time has been modified to: 01:50:00. Previous collection date/time: 01:50:00. HEMATOLOGY Lymphocytes 22.2 % 20.0 - 10 Normal 40Result [facility] 40.0 Comment: Medical Collection Center date/time has been modified to: 01:50:00. Previous collection date/time: 01:50:00. HEMATOLOGY Basophils 0.0 % 0.0 - 1.0 03/14 Normal 43Result Comment: Medical Collection Center date/time has been modified to: 01:50:00. Previous collection date/time: 01:50:00. HEMATOLOGY Monocytes # 1.2 K/CMM 0.0 - 0.8 03/14 [place] 46Result Comment: Medical Collection Center date/time has been modified to: 01:50:00. Previous collection date/time: 01:50:00. HEMATOLOGY Segs-Bands # 7.3 K/CMM 1.5 - 8.1 03/14 Normal 44Result Comment: Medical Collection Center date/time has been modified to: 01:50:00. Previous collection date/time: 01:50:00. HEMATOLOGY Basophils # 0.0 K/CMM 0.0 - 0.2 03/14 Normal 48Result Comment: Medical Collection Center date/time has been modified to: 01:50:00. Previous collection date/time: 01:50:00. HEMATOLOGY Eosinophils # 0.7 K/CMM 0.0 - 0.5 03/14 [place] 47Result Comment: Medical Collection Center date/time has been modified to: 01:50:00. Previous collection date/time: 01:50:00. HEMATOLOGY Lymphocytes # 2.6 K/CMM 1.0 - 5.5 03/14 Normal 45Result Comment: Medical Collection Center date/time has been modified to: 01:50:00. Previous collection date/time: 01:50:00. HEMATOLOGY Large Plt Slight 52 >None Seen 03/14 ABN 52Result Comment: Medical *ABN* Collection Center date/time has (03/14/2011 01:50:00) ?? been modified to: 01:50:00. Previous collection date/time: 01:50:00. HEMATOLOGY Dian Cell Slight 51 >None Seen 03/14 ABN 51Result Comment: Medical *ABN* Collection Center date/time has (03/14/2011 01:50:00) ?? been modified to: 01:50:00. Previous collection date/time: 01:50:00. HEMATOLOGY Anisocyte 1+ 49 >None Seen 03/14 ABN 49Result Comment: Medical *ABN* Collection Center date/time has (03/14/2011 01:50:00) ?? been modified to: 01:50:00. Previous collection date/time: 01:50:00. HEMATOLOGY Polychrom Slight 50 >None Seen 03/14 Normal 50Result Comment: Medical (03/14/2011 01:50:00) ?? Collection Center date/time has been modified to: 01:50:00. Previous collection date/time: 01:50:00. HEMATOLOGY Hgb 13.3 g/dL 12.0 - 03/14 Normal 31Result [facility] 16.0 Comment: Medical Collection Center date/time has been modified to: 01:50:00. Previous collection date/time: 01:50:00. HEMATOLOGY WBC 11.8 K/CMM 3.7 - 10.4 03/14 [place] 29Result Comment: Medical Collection Center date/time has been modified to: 01:50:00. Previous collection date/time: 01:50:00. HEMATOLOGY RBC 4.18 M/CMM 4.20 - 10/14 LOW 30Result [facility] 5.40 /2010 Comment: Medical Collection Center date/time has been modified to: 01:50:00. Previous collection date/time: 01:50:00. HEMATOLOGY MCV 90.6 fL 81.0 - 10 Normal 33Result [facility] 99.0 /2010 Comment: Medical Collection Center date/time has been modified to: 01:50:00. Previous collection date/time: 01:50:00. HEMATOLOGY MCH 31.8 pg 27.0 - 10 [place] 34Result [facility] 31.0 /2010 Comment: Medical Collection Center date/time has been modified to: 01:50:00. Previous collection date/time: 01:50:00. HEMATOLOGY Hct 37.9 % 36.0 - 03/14 Normal 32Result [facility] 48.0 /2010 Comment: Medical Collection Center date/time has been modified to: 01:50:00. Previous collection date/time: 01:50:00. HEMATOLOGY MPV 10.0 fL 7.4 - 10.4 03/14 Normal 38Result [facility] /2010 Comment: Medical Collection Center date/time has been modified to: 01:50:00. Previous collection date/time: 01:50:00. HEMATOLOGY RDW 13.5 % 11.5 - 03/14 Normal 36Result [facility] 14.5 /2010 Comment: Medical Collection Center date/time has been modified to: 01:50:00. Previous collection date/time: 01:50:00. HEMATOLOGY Platelet 199.0 133 - 450 03/14 Normal 37Result [place] K/CMM /2010 Comment: Medical Collection Center date/time has been modified to: 01:50:00. Previous collection date/time: 01:50:00. HEMATOLOGY MCHC 35.1 g/dL 32.0 - 10 Normal 35Result [facility] 36.0 Comment: Medical Collection Center date/time has been modified to: 01:50:00. Previous collection date/time: 01:50:00. CHEMISTRY AST 27.0 U/L 0 - 37 03/13 Normal [facility] Center CHEMISTRY Globulin 3.2 g/dL 2.0 - 4.0 03/13 Normal [facility] CHEMISTRY Albumin Lvl 2.9 g/dL 3.5 - 5.0 03/13 LOW [facility] CHEMISTRY ALT 32.0 U/L 0 - 65 03/13 [facility] CHEMISTRY Total Protein 6.1 g/dL 6.4 - 8.4 03/13 [facility] CHEMISTRY A/G Ratio 0.9 0.7 - 1.6 03/13 Normal [facility] Center CHEMISTRY Bili Indirect 0.3 mg/dL 0.0 - 1.0 03/13 Normal [facility] CHEMISTRY Bili Total 0.4 mg/dL 0.2 - 1.3 03/13 Normal [facility] Center CHEMISTRY Bili Direct 0.1 mg/dL 0.0 - 0.3 03/13 [facility] CHEMISTRY Alk Phos 103.0 U/L 39 - 136 03/13 [facility] BEDSIDE Gluc POC 197.0 65 - 110 03/07 [place] 1Interpretive [facility] GLUCOSE [place] mg/dL Data: Medical TESTING Center Upper Reportable Limit: 200 mg/dL. BEDSIDE Comment1 Notify 03/07 [facility] GLUCOSE RN/MD Medical TESTING Center BEDSIDE Comment2 Sliding 03/07 [facility] GLUCOSE Scale Medical TESTING Center BEDSIDE Gluc POC 112.0 65 - 110 03/07 [place] 2Interpretive [facility] GLUCOSE [place] mg/dL Data: Medical TESTING Center Upper Reportable Limit: 200 mg/dL. BEDSIDE Comment1 Notify 03/07 [facility] Dougie GLUCOSE RN/MD Medical TESTING Center BEDSIDE Comment2 Sliding 03/07 [facility] GLUCOSE Scale Medical TESTING Center BEDSIDE Comment1 Notify 03/07 [facility] GLUCOSE RN/MD Medical TESTING Center BEDSIDE Gluc POC 180.0 65 - 110 03/07 [place] 3Interpretive [facility] GLUCOSE [place] mg/dL Data: Medical TESTING Center Upper Reportable Limit: 200 mg/dL. BEDSIDE Comment2 Sliding 03/06 NA [facility] GLUCOSE Medical TESTING Center CHEMISTRY eGFR null 03/05 NA 4Result Comment: Medical Expected eGFR Center for >20 yr. age group: >=60 ml/min/1.73 sq m The eGFR calculation is not valid in or for persons < 18 years of age. From [employer] (NKDEP) CHEMISTRY Chloride Lvl 107.0 95 - 109 03/05 Normal [facility] meq/L Medical Center CHEMISTRY Sodium Lvl 144.0 135 - 145 03/05 Normal [facility] meq/L Medical Center CHEMISTRY Potassium Lvl 3.8 meq/L 3.5 - 5.1 03/05 [facility] CHEMISTRY Calcium Lvl 8.4 mg/dL 8.5 - 10.5 03/05 LOW [facility] CHEMISTRY AGAP 15.8 meq/L 10.0 - 03/05 Normal [facility] 20. Medical Center CHEMISTRY CO2 25.0 meq/L 24 - 32 03/05 [facility] CHEMISTRY BUN 16.0 mg/dL 7 - 22 03/05 [facility] CHEMISTRY Creatinine 0.9 mg/dL 0.5 - 1.4 03/05 Normal [facility] Lvl Medical Center CHEMISTRY Glucose Lvl 77.0 mg/dL 03/05 NA 5Interpretive Data: Medical Reference Center Ranges : 0 - 7 days : 41 - 90 mg/dL7 days - 150 yrs : 70 - 99 mg/dL (fasting), based on the clinical recommendatio ns of the [place] [employer]. HEMATOLOGY Segs 45.6 % 45.0 - 03/05 Normal [facility] 75.0 Medical Center HEMATOLOGY Monocytes 10.4 % 2.0 - 12.0 03/05 Normal [facility] Center HEMATOLOGY Eosinophils 3.5 % 0.0 - 4.0 03/05 Normal [facility] HEMATOLOGY Lymphocytes 38.5 % 20.0 - 10 Normal [facility] 40.0 [facility] HEMATOLOGY Eosinophils # 0.4 K/CMM 0.0 - 0.5 03/05 Normal [facility] HEMATOLOGY Basophils # 0.2 K/CMM 0.0 - 0.2 03/05 Normal [facility] HEMATOLOGY Basophils 2.0 % 0.0 - 1.0 10 HI [facility] HEMATOLOGY Segs-Bands # 5.8 K/CMM 1.5 - 8.1 03/05 Normal [facility] HEMATOLOGY Lymphocytes # 4.9 K/CMM 1.0 - 5.5 10 Normal [facility] HEMATOLOGY Monocytes # 1.3 K/CMM 0.0 - 0.8 03/05 [facility] Medical Center HEMATOLOGY Hgb 9.9 g/dL 12.0 - 10 LOW [place] 16.0 [facility] HEMATOLOGY MCV 92.6 fL 81.0 - 10 Normal [facility] 99.0 [facility] HEMATOLOGY RBC 3.08 M/CMM 4.20 - 03/05 [facility] 5.40 Medical [place] HEMATOLOGY WBC 12.7 K/CMM 3.7 - 10.4 03/05 [facility] Medical [place] HEMATOLOGY MCH 32.0 pg 27.0 - 03/05 [facility] 31. [facility] HEMATOLOGY Hct 28.5 % 36.0 - 03/05 LOW [place] 48.0 Medical Center HEMATOLOGY MCHC 34.6 g/dL 32.0 - 10 Normal [facility] 36.0 Medical Center HEMATOLOGY Platelet 221.0 133 - 450 10 Normal [facility] Center HEMATOLOGY RDW 16.5 % 11.5 - 03/05 [facility] 14. Medical Center HEMATOLOGY MPV 9.1 fL 7.4 - 10.4 03/05 Normal [facility] HEMATOLOGY Platelet 270.0 133 - 450 03/03 Normal [facility] /CM Medical Center HEMATOLOGY RDW 16.4 % 11.5 - 03/03 [facility] [place] 14. Medical Center HEMATOLOGY MCHC 33.6 g/dL 32.0 - 10 Normal [facility] 36.0 Medical [place] HEMATOLOGY MCH 31.8 pg 27.0 - 03/03 [facility] 31.0 Medical Center HEMATOLOGY WBC 12.4 K/CMM 3.7 - 10.4 10 [facility] Medical Center HEMATOLOGY MPV 9.4 fL 7.4 - 10.4 10 Normal [facility] HEMATOLOGY MCV 94.6 fL 81.0 - 10 Normal [facility] 99.0 [facility] HEMATOLOGY Hct 30.8 % 36.0 - 10 LOW [facility] 48.0 [facility] HEMATOLOGY Hgb 10.4 g/dL 12.0 - 10 LOW [facility] 16.0 [facility] HEMATOLOGY RBC 3.25 M/CMM 4.20 - 03/03 LOW [facility] 5.40 [facility] HEMATOLOGY RDW 16.0 % 11.5 - 10 HI [facility] 14.5 [facility] HEMATOLOGY MPV 9.1 fL 7.4 - 10.4 03/02 Normal [facility] HEMATOLOGY Platelet 283.0 133 - 450 03/02 Normal [facility] K/CMM /2010 [facility] HEMATOLOGY RBC 3.23 M/CMM 4.20 - 03/02 [facility] 5.40 [facility] HEMATOLOGY MCV 94.5 fL 81.0 - 10 Normal [facility] 99.0 [facility] HEMATOLOGY Hct 30.5 % 36.0 - 10 LOW [facility] 48.0 [facility] HEMATOLOGY Hgb 10.3 g/dL 12.0 - 03/02 LOW [facility] 16.0 [facility] HEMATOLOGY MCHC 33.6 g/dL 32.0 - 10 Normal [facility] 36.0 [facility] HEMATOLOGY WBC 12.7 K/CMM 3.7 - 10.4 03/02 [facility] HEMATOLOGY MCH 31.8 pg 27.0 - 03/02 [facility] 31.0 [facility] URINALYSIS UA <=1.0 0.1 - 1.0 03/01 [facility] Urobilinogen mg/dL Medical
*NA*< Center br/>(03/01 15:38:00) <sup>??</s up> URINALYSIS UA Turbidity Clear >Clear 03/01 Normal Medical (03/01/2011 15:38:00) ?? Center URINALYSIS UA Spec Grav 1.009 <<=1.030 03/01 Normal [facility] URINALYSIS UA Color Yellow >Yellow 03/01 NA Medical *NA* Center (03/01/2011 15:38:00) ?? URINALYSIS UA pH 5.5 5.0 - 8.0 03/01 Normal [facility] URINALYSIS UA Ketones Negative mg/dL >Negative 03/01 [facility] [place] (03/01/2011 15:38:00) ?? URINALYSIS UA Glucose Negative mg/dL >Negative 03/01 [facility] [place] (03/01/2011 15:38:00) ?? URINALYSIS UA Bili Negative >Negative 03/01 [facility] [place] (03/01/2011 15:38:00) ?? URINALYSIS UA Blood Negative >Negative 03/01 Normal [facility] (03/01/2011 15:38:00) ?? Center URINALYSIS UA WBC null 0 - 5 03/01 Normal [facility] URINALYSIS UA Nitrite Negative >Negative 03/01 Normal [facility] (03/01/2011 15:38:00) ?? Center URINALYSIS UA Leuk Est Negative >Negative 03/01 Normal [facility] (03/01/2011 15:38:00) ?? Center URINALYSIS UA Mucus Few /LPF >None Seen 03/01 [facility] [place] (03/01/2011 15:38:00) ?? URINALYSIS UA Sq Epi Moderate /LPF >Few 03/[address] [facility] [place] (03/01/2011 15:38:00) ?? URINALYSIS UA Hyal Cast 1.0 /LPF 0 - 2 03/01 Normal [facility] URINALYSIS UA Protein 10 mg/dL >Negative 03/[address] [facility] [place] (03/01/2011 15:38:00) ?? Microbiolog Culture: 03/01 [facility] HEMATOLOGY Lymphocytes # 5.7 K/CMM 1.0 - 5.5 02/28 HI [facility] HEMATOLOGY Segs-Bands # 4.8 K/CMM 1.5 - 8.1 02/28 Normal [facility] HEMATOLOGY Basophils 1.0 % 0.0 - 1.0 02/28 Normal [facility] HEMATOLOGY Monocytes 8.9 % 2.0 - 12.0 02/28 Normal [facility] HEMATOLOGY Eosinophils 2.8 % 0.0 - 4.0 02/28 Normal [facility] HEMATOLOGY Lymphocytes 47.3 % 20.0 - 02/28 [facility] 40.0 /2010 [facility] HEMATOLOGY Segs 40.0 % 45.0 - 02/28 [facility] 75.0 /2010 [facility] HEMATOLOGY Basophils # 0.1 K/CMM 0.0 - 0.2 02/28 Normal [facility] HEMATOLOGY Monocytes # 1.1 K/CMM 0.0 - 0.8 02/28 HI [facility] HEMATOLOGY Eosinophils # 0.3 K/CMM 0.0 - 0.5 02/28 Normal [facility] CHEMISTRY Globulin 2.8 g/dL 2.0 - 4.0 02/27 Normal [facility] CHEMISTRY B/C Ratio 14.0 6 - 25 02/27 Normal [facility] CHEMISTRY AGAP 13.8 meq/L 10.0 - 02/27 Normal [facility] 20.0 [facility] CHEMISTRY A/G Ratio 0.8 0.7 - 1.6 02/27 Normal [facility] CHEMISTRY Total Protein 5.0 g/dL 6.4 - 8.4 02/27 LOW [facility] CHEMISTRY Calcium Lvl 8.4 mg/dL 8.5 - 10.5 02/27 LOW [facility] CHEMISTRY ALT 24.0 U/L 0 - 65 02/27 Normal [facility] CHEMISTRY Albumin Lvl 2.2 g/dL 3.5 - 5.0 02/27 LOW [facility] CHEMISTRY Bili Total 0.3 mg/dL 0.2 - 1.3 02/27 Normal [facility] CHEMISTRY AST 21.0 U/L 0 - 37 02/27 Normal [facility] CHEMISTRY Alk Phos 98.0 U/L 39 - 136 02/27 Normal [facility] CHEMISTRY CO2 28.0 meq/L 24 - 32 02/27 Normal [facility] CHEMISTRY BUN 10.0 mg/dL 7 - 22 02/27 Normal [facility] CHEMISTRY Potassium Lvl 3.8 meq/L 3.5 - 5.1 02/27 Normal [facility] CHEMISTRY Sodium Lvl 143.0 135 - 145 02/27 Normal [facility] meq/L [facility] Center CHEMISTRY Creatinine 0.7 mg/dL 0.5 - 1.4 02/27 Normal [facility] Lvl Medical Center CHEMISTRY Glucose Lvl 119.0 02/27 NA 6Interpretive [place] mg/dL Data: Medical [facility] Center Ranges : 0 - 7 days : 41 - 90 mg/dL7 days - 150 yrs : 70 - 99 mg/dL (fasting), based on the clinical recommendatio ns of the [place] [employer]. CHEMISTRY Chloride Lvl 105.0 95 - 109 02/27 Normal [facility] meq/L [facility] HEMATOLOGY Monocytes # 0.9 K/CMM 0.0 - 0.8 02/27 HI [facility] HEMATOLOGY Eosinophils # 0.3 K/CMM 0.0 - 0.5 02/27 Normal [facility] HEMATOLOGY Lymphocytes # 3.3 K/CMM 1.0 - 5.5 02/27 Normal [facility] HEMATOLOGY Basophils # 0.1 K/CMM 0.0 - 0.2 02/27 Normal [facility] HEMATOLOGY Basophils 1.2 % 0.0 - 1.0 02/27 HI [facility] HEMATOLOGY Segs-Bands # 6.0 K/CMM 1.5 - 8.1 02/27 Normal [facility] HEMATOLOGY Monocytes 8.3 % 2.0 - 12.0 02/27 Normal [facility] HEMATOLOGY Eosinophils 3.1 % 0.0 - 4.0 02/27 Normal [facility] HEMATOLOGY Segs 56.6 % 45.0 - 02/27 Normal [facility] 75.0 [facility] HEMATOLOGY Lymphocytes 30.8 % 20.0 - 02/27 Normal [facility] 40.0 Medical Center BEDSIDE Gluc POC 207.0 65 - 110 02/26 [place] 1Interpretive [facility] GLUCOSE [place] mg/dL Data: Medical TESTING Center Upper Reportable Limit: 200 mg/dL. BEDSIDE Comment1 Notify 02/26 NA [facility] GLUCOSE RN/MD /2010 Medical TESTING Center BEDSIDE Comment1 Notify 02/26 NA [facility] GLUCOSE RN/MD /2010 Medical TESTING Center BEDSIDE Gluc POC 155.0 65 - 110 02/26 [place] 2Interpretive [facility] GLUCOSE [place] mg/dL Data: Medical TESTING Center Upper Reportable Limit: 200 mg/dL. BEDSIDE Gluc POC 140.0 65 - 110 02/26 [place] 3Interpretive [facility] GLUCOSE [place] mg/dL Data: Medical TESTING Center Upper Reportable Limit: 200 mg/dL. CHEMISTRY AGAP 15.6 meq/L 10.0 - 02/26 Normal [place] 20.0 Medical Center CHEMISTRY CO2 25.0 meq/L - 02/26 Normal [facility] CHEMISTRY Calcium Lvl 7.9 mg/dL 8.5 - 10.5 02/26 LOW [facility] CHEMISTRY Sodium Lvl 142.0 135 - 145 02/26 Normal [facility] meq/L Medical Center CHEMISTRY Potassium Lvl 3.6 meq/L 3.5 - 5.1 02/26 Normal [facility] CHEMISTRY Creatinine 0.5 mg/dL 0.5 - 1.4 02/26 Normal [facility] CHEMISTRY Chloride Lvl 105.0 95 - 109 02/26 Normal [facility] meq/L Medical Center CHEMISTRY BUN 9.0 mg/dL 02/26 Normal [facility] CHEMISTRY Glucose Lvl 120.0 02/26 NA 4Interpretive [place] mg/dL Data: Medical [facility] Center Ranges : 0 - 7 days : 41 - 90 mg/dL7 days - 150 yrs : 70 - 99 mg/dL (fasting), based on the clinical recommendatio ns of the [place] [employer]. HEMATOLOGY Hgb 10.5 g/dL 12.0 - 02/26 [facility] 16.0 Medical Center HEMATOLOGY Hct 31.2 % 36.0 - 02/26 [facility] 48.0 Medical Center BEDSIDE Comment1 Notify 02/26 NA [facility] GLUCOSE RN/ /2010 Medical TESTING Center CHEMISTRY Magnesium Lvl 1.9 mg/dL 1.8 - 2.4 02/24 Normal [facility] CHEMISTRY Calcium Lvl 7.9 mg/dL 8.5 - 10.5 02/24 LOW [facility] CHEMISTRY Chloride Lvl 106.0 95 - 109 02/24 Normal [facility] meq/L Medical Center CHEMISTRY CO2 24.0 meq/L 02/24 Normal [facility] CHEMISTRY Sodium Lvl 142.0 135 - 145 02/24 Normal [facility] meq/L Medical Center CHEMISTRY Creatinine 0.6 mg/dL 0.5 - 1.4 02/24 Normal [facility] Lvl Medical Center CHEMISTRY BUN 12.0 mg/dL 7 - 02/24 Normal [facility] CHEMISTRY Glucose Lvl 89.0 mg/dL 02/24 NA 5Interpretive Data: Medical Reference Center Ranges : 0 - 7 days : 41 - 90 mg/dL7 days - 150 yrs : 70 - 99 mg/dL (fasting), based on the clinical recommendatio ns of the [place] [employer]. CHEMISTRY Potassium Lvl 3.7 meq/L 3.5 - 5.1 02/24 Normal [facility] Center CHEMISTRY AGAP 15.7 meq/L 10.0 - 02/24 Normal [facility] 20. Medical Center HEMATOLOGY Hct 30.7 % 36.0 - 02/24 LOW [facility] 48.0 [facility] HEMATOLOGY Hgb 10.3 g/dL 12.0 - 02/24 LOW [facility] 16.0 Medical Center HEMATOLOGY Sed Rate 105.0 mm/h 0 - 02/24 HI Medical Center CHEMISTRY Magnesium Lvl 1.7 mg/dL 1.8 - 2.4 02/21 LOW [facility] Center CHEMISTRY Ca Norm mgdL 4.64 mg/dL 4.65 - 02/21 LOW [facility] 5. Medical Center CHEMISTRY Ca Ion 1.1 mMol/L 1. - 02/21 LOW [facility] 1. Medical Center CHEMISTRY Ca Norm 1.16 1.16 - 02/21 Normal [facility] mMol/L . Medical Center CHEMISTRY Ca Ion mgdL 4.4 mg/dL 4.65 - 02/21 LOW [facility] 5. Medical Center CHEMISTRY AGAP 16.9 meq/L 10.0 - 02/21 Normal [facility] 20. Medical Center CHEMISTRY BUN 6.0 mg/dL 7 - 02/21 LOW [facility] CHEMISTRY Creatinine 0.4 mg/dL 0.5 - 1.4 02/21 LOW [facility] Lvl Medical Center CHEMISTRY Glucose Lvl 154.0 02/21 NA 6Interpretive [facility] mg/dL Data: Medical Reference Center Ranges : 0 - 7 days : 41 - 90 mg/dL7 days - 150 yrs : 70 - 99 mg/dL (fasting), based on the clinical recommendatio ns of the [place] [employer]. CHEMISTRY Potassium Lvl 4.9 meq/L 3.5 - 5.1 02/21 Normal [facility] CHEMISTRY Sodium Lvl 138.0 135 - 145 02/21 Normal [facility] meq/L [facility] CHEMISTRY Calcium Lvl 7.7 mg/dL 8.5 - 10.5 02/21 LOW [facility] CHEMISTRY Chloride Lvl 107.0 95 - 109 02/21 Normal [facility] meq/L [facility] CHEMISTRY CO2 19.0 meq/L 24 - 32 02/21 LOW [facility] CHEMISTRY Phosphorus 3.7 mg/dL 2.5 - 4.5 02/21 Normal [facility] HEMATOLOGY Eosinophils # 0.6 K/CMM 0.0 - 0.5 02/21 [facility] HEMATOLOGY Monocytes # 0.9 K/CMM 0.0 - 0.8 02/21 [facility] HEMATOLOGY Basophils # 0.0 K/CMM 0.0 - 0.2 02/21 Normal [facility] HEMATOLOGY Eosinophils 6.9 % 0.0 - 4.0 02/21 [facility] HEMATOLOGY Monocytes 9.6 % 2.0 - 12.0 02/21 Normal [facility] HEMATOLOGY Segs-Bands # 5.2 K/CMM 1.5 - 8.1 02/21 Normal [facility] HEMATOLOGY Basophils 0.3 % 0.0 - 1.0 02/21 Normal [facility] HEMATOLOGY Lymphocytes # 2.3 K/CMM 1.0 - 5.5 02/21 Normal [facility] HEMATOLOGY Segs 57.5 % 45.0 - 02/21 [facility] 75.0 [facility] HEMATOLOGY Lymphocytes 25.7 % 20.0 - 02/21 [facility] 40.0 Medical [place] HEMATOLOGY MCHC 34.1 g/dL 32.0 - 02/21 Normal [place] 36.0 [facility] HEMATOLOGY Platelet 166.0 133 - 450 02/21 Normal [facility] K/CMM [facility] HEMATOLOGY RDW 16.2 % 11.5 - 02/21 [facility] 14. Medical Center HEMATOLOGY MPV 7.8 fL 7.4 - 10.4 02/21 Normal [facility] HEMATOLOGY Hct 32.4 % 36.0 - 02/21 LOW [place] 48.0 Medical Center HEMATOLOGY MCV 96.0 fL 81.0 - 02/21 Normal [place] 99.0 Medical Center HEMATOLOGY MCH 32.7 pg 27.0 - 02/21 [facility] [place] 31.0 Medical Center HEMATOLOGY RBC 3.38 M/CMM 4. - 02/21 LOW [place] 5.40 Medical Center HEMATOLOGY Hgb 11.0 g/dL 12.0 - 02/21 LOW [place] 16.0 Medical Center HEMATOLOGY WBC 9.0 K/CMM 3.7 - 10.4 02/21 Normal [facility] Center CHEMISTRY Magnesium Lvl 3.1 mg/dL 1.8 - 2.4 02/20 [facility] Medical Center CHEMISTRY Phosphorus 3.4 mg/dL 2.5 - 4.5 02/20 Normal [facility] CHEMISTRY Ca Ion mgdL 5.08 mg/dL 4. - 02/20 Normal [place] 5. [facility] Center CHEMISTRY Ca Norm 1.28 1. - 02/20 Normal [place] mMol/L 1. [facility] Center CHEMISTRY Ca Ion 1.27 1. - 02/20 Normal [place] mMol/L 1. [facility] Center CHEMISTRY Ca Norm mgdL 5.12 mg/dL 4.02/20 Normal [place] 5. Medical Center HEMATOLOGY MCV 95.8 fL 81.0 - 02/20 Normal [place] 99.0 Medical Center HEMATOLOGY Platelet 175.0 133 - 450 02/20 Normal [place] K/CMM /2010 Medical Center HEMATOLOGY MPV 7.8 fL 7.4 - 10.4 02/20 Normal Medical [facility] HEMATOLOGY MCH 32.2 pg 27.0 - 02/20 [facility] [place] 31.0 Medical Center HEMATOLOGY MCHC 33.7 g/dL 32.0 - 02/20 Normal [place] 36.0 Medical Center HEMATOLOGY RDW 16.5 % 11.5 - 02/20 [facility] [place] 14.5 Medical Center HEMATOLOGY RBC 3.19 M/CMM 4.20 - 02/20 LOW [place] 5.40 Medical [place] HEMATOLOGY WBC 6.9 K/CMM 3.7 - 10.4 02/20 Normal [facility] HEMATOLOGY Eosinophils # 0.4 K/CMM 0.0 - 0.5 02/20 Normal [facility] HEMATOLOGY Basophils # 0.0 K/CMM 0.0 - 0.2 02/20 Normal [facility] HEMATOLOGY Monocytes # 0.6 K/CMM 0.0 - 0.8 02/20 Normal [facility] HEMATOLOGY Segs 63.4 % 45.0 - 02/20 Normal [place] 75.0 /2010 Medical Center HEMATOLOGY Lymphocytes 20.5 % 20.0 - 02/20 Normal [place] 40.0 /2010 [facility] HEMATOLOGY Monocytes 9.3 % 2.0 - 12.0 02/20 Normal [facility] HEMATOLOGY Eosinophils 6.4 % 0.0 - 4.0 02/20 [facility] HEMATOLOGY Basophils 0.4 % 0.0 - 1.0 02/20 Normal [facility] HEMATOLOGY Segs-Bands # 4.4 K/CMM 1.5 - 8.1 02/20 Normal [facility] HEMATOLOGY Lymphocytes # 1.4 K/CMM 1.0 - 5.5 02/20 Normal [facility] CHEMISTRY Ca Norm 1.02 1. - 02/19 LOW [place] mMol/L 1. [facility] CHEMISTRY Ca Norm mgdL 4.08 mg/dL 4.65 - 02/19 [facility] [place] 5. [facility] CHEMISTRY Ca Ion mgdL 4.12 mg/dL 4.65 - 02/19 [facility] [place] 5. [facility] CHEMISTRY Ca Ion 1.03 1.16 - 02/19 [facility] [place] mMol/L 1. [facility] CHEMISTRY AST 66.0 U/L 0 - 37 02/19 [facility] CHEMISTRY Bili Total 0.8 mg/dL 0.2 - 1.3 02/19 Normal [facility] CHEMISTRY Albumin Lvl 2.3 g/dL 3.5 - 5.0 02/19 [facility] CHEMISTRY Total Protein 4.8 g/dL 6.4 - 8.4 02/19 LOW Medical Center CHEMISTRY ALT 67.0 U/L 0 - 65 02/19 [facility] Center CHEMISTRY Globulin 2.5 g/dL 2.0 - 4.0 02/19 Normal [facility] CHEMISTRY A/G Ratio 0.9 0.7 - 1.6 02/19 Normal [facility] CHEMISTRY Alk Phos 155.0 U/L 39 - 136 02/19 [facility] Center CHEMISTRY B/C Ratio 20.0 6 - 25 02/19 Normal [facility] HEMATOLOGY PTT 29.4 s 22.9 - 02/19 Normal 8Interpretive [facility] 35.8 Data: [facility] Range: 57 - 92 Seconds HEMATOLOGY PT 13.9 s 12.0 - 02/19 Normal [facility] 14.7 [facility] HEMATOLOGY INR 1.07 0.85 - 02/19 Normal 7[facility] 1.17 Data: Medical [facility] Center RANGES FOR PROTIME INR: 2.0-3.0 for most medical and surgical thromboemboli c states. 2.5-3.5 for artificial heart valves and recurrent embolism.INR SHOULD BE USED ONLY FOR PATIENTS ON STABLE ANTICOAGULANT THERAPY. HEMATOLOGY RBC 3.4 M/CMM 4.20 - 02/19 [facility] 5.40 /2010 [facility] HEMATOLOGY MCH 32.2 pg 27.0 - 02/19 [facility] 31.0 [facility] HEMATOLOGY MCV 95.7 fL 81.0 - 02/19 Normal [facility] 99.0 [facility] HEMATOLOGY MCHC 33.6 g/dL 32.0 - 02/19 Normal [facility] 36.0 [facility] HEMATOLOGY RDW 16.7 % 11.5 - 02/19 [facility] 14.5 [facility] HEMATOLOGY MPV 7.8 fL 7.4 - 10.4 02/19 Normal [facility] HEMATOLOGY Platelet 173.0 133 - 450 02/19 Normal [place] K/CMM /2010 Medical Center HEMATOLOGY WBC 7.4 K/CMM 3.7 - 10.4 02/19 Normal [facility] HEMATOLOGY Monocytes 8.7 % 2.0 - 12.0 02/19 Normal [facility] HEMATOLOGY Lymphocytes 15.6 % 20.0 - 02/19 [facility] [place] 40.0 /2010 [facility] HEMATOLOGY Lymphocytes # 1.1 K/CMM 1.0 - 5.5 02/19 Normal [facility] HEMATOLOGY Monocytes # 0.6 K/CMM 0.0 - 0.8 02/19 Normal [facility] HEMATOLOGY Eosinophils 5.3 % 0.0 - 4.0 02/19 HI [facility] HEMATOLOGY Segs-Bands # 5.1 K/CMM 1.5 - 8.1 02/19 Normal [facility] HEMATOLOGY Basophils 0.6 % 0.0 - 1.0 02/19 Normal [facility] HEMATOLOGY Segs 69.8 % 45.0 - 02/19 Normal [place] 75.0 [facility] HEMATOLOGY Eosinophils # 0.4 K/CMM 0.0 - 0.5 02/19 Normal [facility] HEMATOLOGY Basophils # 0.0 K/CMM 0.0 - 0.2 02/19 Normal [facility] CHEMISTRY Lactic Acid 1.1 mMol/L 0.5 - 2.2 02/19 Normal [facility] Lvl [facility] Center Microbiolog Culture: 02/19 [facility] y Resistant /2010 [facility] Center Screen Microbiolog Culture: MRSA 02/19 [facility] y /2010 [facility] Center Microbiolog Culture: 02/19 [facility] y Anaerobic [facility] Center Microbiolog Culture: 02/19 [facility] Aspirate/Body /2010 Medical Fluid/Tissue Center CHEMISTRY POC A Glu 109.0 65 - 110 02/19 Normal [facility] mg/dL [facility] CHEMISTRY POC A LA 0.6 mMol/L 0.5 - 2.2 02/19 Normal [facility] CHEMISTRY POC A Ca Ion 1.08 1.16 - 02/19 LOW [facility] mMol/L 1.30 [facility] CHEMISTRY POC A Na 140.0 135 - 145 02/19 Normal [facility] meq/L [facility] CHEMISTRY POC A Hct 29.0 % 36.0 - 02/19 LOW [place] 48.0 [facility] CHEMISTRY POC A K 3.3 meq/L 3.5 - 5.1 02/19 LOW [facility] CHEMISTRY POC A O2 Sat 100.0 % 95.0 - 02/19 Normal [place] 100.0 [facility] CHEMISTRY POC A HCO3 22.0 22 - 26 02/19 Normal [facility] mMol/L [facility] CHEMISTRY POC A BE -4.0 -2-2 - 2 02/19 LOW [facility] mMol/L Medical [place] CHEMISTRY POC A Source ART 02/19 NA [facility] CHEMISTRY POC A pH 7.33 7.35 - 02/19 LOW [facility] 7.45 [facility] CHEMISTRY POC A PCO2 41.0 35 - 45 02/19 Normal [facility] mm[Hg] [facility] CHEMISTRY POC A Temp 37.0 Kelsey 02/19 NA [facility] CHEMISTRY POC A PO2 433.0 80 - 100 02/19 HI [facility] mm[Hg] [facility] Center Microbiolog Culture: 02/19 [facility] y Aspirate/Body /2010 Medical Fluid/Tissue Center Microbiolog Culture: CSF 02/19 [facility] y w/Gram Stain /2010 [facility] BODY FLUIDS Protein CSF 39.0 mg/dL 15 - 45 02/19 Normal [facility] BODY FLUIDS Glucose CSF 70.0 mg/dL 45 - 80 02/19 Normal [facility] BODY FLUIDS WBC CSF 1.0 /mm3 0 - 5 02/19 Normal [facility] BODY FLUIDS Color CSF Light Red >Colorless 02/[facility] [place] (02/19/2011 11:00:00) ?? BODY FLUIDS Clarity CSF Slight >Clear 02/[address] [facility] [place] (02/19/2011 11:00:00) ?? BODY FLUIDS Supernat CSF Colorless >Colorless 02/19 Normal [facility] (02/19/2011 11:00:00) ?? Center BODY FLUIDS RBC CSF 2885.0 0 - 0 02/19 HI /mm3 [facility] Center BODY FLUIDS Tube Num CSF xxxxxxx 02/19 Normal [facility] (02/19/2011 11:00:00) ?? Center CHEMISTRY POC A Glu 107.0 65 - 110 02/19 Normal [facility] mg/dL [facility] CHEMISTRY POC A K 3.2 meq/L 3.5 - 5.1 02/19 LOW [facility] CHEMISTRY POC A Ca Ion 1.1 mMol/L 1.16 - 02/19 LOW [facility] 1.30 [facility] Center CHEMISTRY POC A LA 0.7 mMol/L 0.5 - 2.2 02/19 Normal [facility] CHEMISTRY POC A Source ART 02/19 NA [facility] CHEMISTRY POC A pH 7.35 7.35 - 02/19 LOW [facility] [place] 7.45 Medical Center CHEMISTRY POC A Temp 37.0 Kelsey 02/19 NA [facility] CHEMISTRY POC A BE -3.0 -2-2 - 2 02/19 LOW [facility] [place] mMol/L Medical Center CHEMISTRY POC A PCO2 41.0 35 - 45 02/19 Normal [facility] [place] mm[Hg] Medical Center CHEMISTRY POC A PO2 404.0 80 - 100 02/19 HI [facility] [place] mm[Hg] Medical Center CHEMISTRY POC A HCO3 23.0 22 - 02/19 Normal [facility] [place] mMol/L Medical Center CHEMISTRY POC A Na 140.0 135 - 145 02/19 Normal [place] meq/L Medical Center CHEMISTRY POC A O2 Sat 100.0 % 95.0 - 02/19 Normal [facility] [place] 100.0 Medical Center CHEMISTRY POC A Hct 29.0 % 36.0 - 02/19 LOW [facility] [place] 48.0 Medical Center BLOOD BANK ABO/Rh O NEG 02/19 Unknown [place] RESULTS Medical Center BLOOD BANK Antibody Scrn Negative 02/19 Normal [place] RESULTS Medical (02/19/2011 10:33:00) ?? Center CHEMISTRY POC A K 3.7 meq/L 3.5 - 5.1 02/19 Normal Medical Center CHEMISTRY POC A Ca Ion 1.1 mMol/L 1.16 - 02/19 LOW [facility] [place] 1.30 Medical Center CHEMISTRY POC A Glu 118.0 65 - 110 02/19 HI [place] mg/dL Medical Center CHEMISTRY POC A LA 1.0 mMol/L 0.5 - 2.2 02/19 Normal [facility] CHEMISTRY POC A Na 136.0 135 - 145 02/19 Normal [facility] [place] meq/L Medical Center CHEMISTRY POC A pH 7.43 7.35 - 02/19 Normal [facility] [place] 7.45 Medical Center CHEMISTRY POC A PO2 381.0 80 - 100 02/19 HI [facility] [place] mm[Hg] Medical Center CHEMISTRY POC A BE -1.0 -2-2 - 2 02/19 Normal [facility] [place] mMol/L Medical Center CHEMISTRY POC A HCO3 23.0 22 - 26 02/19 Normal [facility] [place] mMol/L Medical Center CHEMISTRY POC A O2 Sat 100.0 % 95.0 - 02/19 Normal [facility] 100.0 Medical Center CHEMISTRY POC A PCO2 34.0 35 - 45 02/19 LOW [facility] mm[Hg] Medical Center CHEMISTRY POC A Temp 37.0 Kel[place] 02/19 NA Medical Center CHEMISTRY POC A Source ART 02/19 NA Medical Center CHEMISTRY POC A Hct 34.0 % 36.0 - 02/19 LOW [place] 48.0 Medical Center CHEMISTRY AGAP 12.0 meq/L 10.0 - 02/19 Normal [facility] 20.0 Medical Center CHEMISTRY Sodium Lvl 141.0 135 - 145 02/19 Normal [facility] meqL Medical Center CHEMISTRY BUN 12.0 mg/dL 7 - 22 02/19 Normal [facility] Center CHEMISTRY Creatinine 0.6 mg/dL 0.5 - 1.4 02/19 Normal [facility] Lvl Medical Center CHEMISTRY CO2 24.0 meq/L 24 - 32 02/19 Normal Medical Center CHEMISTRY Calcium Lvl 7.9 mg/dL 8.5 - 10.5 02/19 LOW [facility] Center CHEMISTRY Potassium Lvl 4.0 meq/L 3.5 - 5.1 02/19 Normal Medical Center CHEMISTRY Chloride Lvl 109.0 95 - 109 02/19 Normal [facility] meq/L Medical Center CHEMISTRY Glucose Lvl 99.0 mg/dL 02/19 NA 8Interpretive Data: Medical [facility] Center Ranges : 0 - 7 days : 41 - 90 mg/dL7 days - 150 yrs : 70 - 99 mg/dL (fasting), based on the clinical recommendatio ns of the [place] [employer]. HEMATOLOGY Lymphocytes # 2.4 K/CMM 1.0 - 5.5 02/19 Normal [facility] HEMATOLOGY Monocytes # 0.7 K/CMM 0.0 - 0.8 02/19 Normal [facility] HEMATOLOGY Basophils # 0.0 K/CMM 0.0 - 0.2 02/19 Normal [facility] HEMATOLOGY Eosinophils # 0.6 K/CMM 0.0 - 0.5 02/19 HI Medical Center HEMATOLOGY Segs-Bands # 2.4 K/CMM 1.5 - 8.1 02/19 Normal [facility] Center HEMATOLOGY Monocytes 10.9 % 2.0 - 12.0 02/19 Normal Medical Center HEMATOLOGY Basophils 0.8 % 0.0 - 1.0 02/19 Normal [facility] Center HEMATOLOGY Eosinophils 9.4 % 0.0 - 4.0 02/19 HI [facility] HEMATOLOGY Lymphocytes 39.3 % 20.0 - 02/19 Normal [place] 40.0 [facility] HEMATOLOGY Segs 39.6 % 45.0 - 02/19 [facility] [place] 75.0 /2010 [facility] HEMATOLOGY MPV 8.2 fL 7.4 - 10.4 02/19 Normal [facility] HEMATOLOGY Platelet 159.0 133 - 450 02/19 Normal [facility] K/CMM /2010 [facility] HEMATOLOGY MCH 32.9 pg 27.0 - 02/19 [facility] 31.0 [facility] HEMATOLOGY MCV 94.8 fL 81.0 - 02/19 Normal [facility] 99.0 [facility] HEMATOLOGY MCHC 34.7 g/dL 32.0 - 02/19 Normal [facility] 36.0 [facility] HEMATOLOGY RDW 16.4 % 11.5 - 02/19 [facility] 14.5 [facility] HEMATOLOGY Hgb 10.7 g/dL 12.0 - 02/19 [facility] 16.0 [facility] HEMATOLOGY RBC 3.26 M/CMM 4.20 - 02/19 [facility] 5.40 /2010 [facility] HEMATOLOGY Hct 30.9 % 36.0 - 02/19 [facility] 48.0 [facility] HEMATOLOGY WBC 6.2 K/CMM 3.7 - 10.4 02/19 Normal [facility] HEMATOLOGY INR 1.0 0.85 - 02/19 Normal [facility] 1.17 e Data: [facility] Center RANGES FOR PROTIME INR: 2.0-3.0 for most medical and surgical thromboemboli c states. 2.5-3.5 for artificial heart valves and recurrent embolism.INR SHOULD BE USED ONLY FOR PATIENTS ON STABLE ANTICOAGULANT THERAPY. HEMATOLOGY PT 13.2 s 12.0 - 02/19 Normal [facility] 14.7 [facility] HEMATOLOGY PTT 30.3 s 22.9 - 02/19 Normal 12Interpretiv [facility] 35.8 /2010 e Data: Medical Heparin Center Therapeutic Range: 57 - 92 Seconds BEDSIDE Gluc POC 142.0 65 - 110 02/19 HI 1Interpretive [facility] GLUCOSE [place] mg/dL /2010 Data: Medical TESTING Center Upper Reportable Limit: 200 mg/dL. BEDSIDE Comment1 Notify 02/19 NA [facility] GLUCOSE RN/MD /2011 Medical TESTING Center BEDSIDE Gluc POC 153.0 65 - 110 02/19 HI 2Interpretive [facility] GLUCOSE [place] mg/dL /2010 Data: Medical TESTING Center Upper Reportable Limit: 200 mg/dL. BEDSIDE Comment1 Notify 02/19 NA [place] GLUCOSE RN/MD /2010 Medical TESTING Center BEDSIDE Gluc POC 149.0 65 - 110 02/19 HI 3Interpretive [facility] GLUCOSE [place] mg/dL /2010 Data: Medical TESTING Center Upper Reportable Limit: 200 mg/dL. BEDSIDE Comment1 Notify 02/18 NA [facility] GLUCOSE RN/MD Medical TESTING Center HEMATOLOGY MCV 94.3 fL 81.0 - 02/18 Normal [place] 99.0 Medical Center HEMATOLOGY Hct 33.1 % 36.0 - 02/18 LOW [place] 48.0 /2010 Medical Center HEMATOLOGY RDW 16.6 % 11.5 - 02/18 [facility] [place] 14.5 Medical Center HEMATOLOGY MCH 32.8 pg 27.0 - 02/18 [facility] [place] 31.0 Medical Center HEMATOLOGY MCHC 34.7 g/dL 32.0 - 02/18 Normal [place] 36.0 /2010 Medical Center HEMATOLOGY MPV 7.9 fL 7.4 - 10.4 02/18 Normal [facility] Center HEMATOLOGY Platelet 152.0 133 - 450 02/18 Normal [place] K/CMM /2011 Medical Center HEMATOLOGY WBC 6.4 K/CMM 3.7 - 10.4 02/18 Normal Medical Center HEMATOLOGY RBC 3.51 M/CMM 4.20 - 02/18 LOW [place] 5.40 /2010 Medical Center HEMATOLOGY Hgb 11.5 g/dL 12.0 - 02/18 LOW [place] 16.0 /2010 Medical Center HEMATOLOGY MPV 8.1 fL 7.4 - 10.4 02/15 Normal [place] [facility] HEMATOLOGY MCH 32.7 pg 27.0 - 02/15 [facility] [place] 31.0 Medical Center HEMATOLOGY MCV 95.1 fL 81.0 - 02/15 Normal [place] 99.0 /2010 Medical Center HEMATOLOGY MCHC 34.3 g/dL 32.0 - 02/15 Normal [place] 36.0 /2010 Medical Center HEMATOLOGY Platelet 117.0 133 - 450 02/15 LOW [place] K/CMM /2010 Medical Center HEMATOLOGY RDW 16.5 % 11.5 - 09 [facility] [place] 14.5 /2010 Medical Center HEMATOLOGY WBC 12.9 K/CMM 3.7 - 10.4 02/15 HI [facility] HEMATOLOGY Hct 34.1 % 36.0 - 02/15 LOW [place] 48.0 /2010 Medical Center HEMATOLOGY Hgb 11.7 g/dL 12.0 - 02/15 [facility] [place] 16.0 Medical [place] HEMATOLOGY RBC 3.58 M/CMM 4.20 - 02/15 [facility] [place] 5.40 /2010 Medical Center HEMATOLOGY Basophils # 0.1 K/CMM 0.0 - 0.2 02/15 Normal [facility] HEMATOLOGY Eosinophils # 0.4 K/CMM 0.0 - 0.5 02/15 Normal [facility] HEMATOLOGY Monocytes # 0.6 K/CMM 0.0 - 0.8 02/15 Normal [facility] HEMATOLOGY Monocytes 4.8 % 2.0 - 12.0 02/15 Normal [facility] HEMATOLOGY Lymphocytes 26.8 % 20.0 - 02/15 [facility] [place] 40.0 /2010 Medical Center HEMATOLOGY Lymphocytes # 3.5 K/CMM 1.0 - 5.5 02/15 [facility] HEMATOLOGY Segs-Bands # 8.3 K/CMM 1.5 - 8.1 02/15 HI [facility] HEMATOLOGY Basophils 0.8 % 0.0 - 1.0 02/15 Normal [facility] HEMATOLOGY Eosinophils 3.0 % 0.0 - 4.0 02/15 Normal [facility] HEMATOLOGY Segs 64.6 % 45.0 - 02/15 [facility] [place] 75.0 [facility] Center CHEMISTRY Globulin 3.1 g/dL 2.0 - 4.0 02/13 Normal [facility] CHEMISTRY Albumin Lvl 2.7 g/dL 3.5 - 5.0 02/13 LOW Medical Center CHEMISTRY Total Protein 5.8 g/dL 6.4 - 8.4 02/13 LOW Medical [facility] CHEMISTRY B/C Ratio 43.0 6 - 25 02/13 HI [facility] CHEMISTRY A/G Ratio 0.9 0.7 - 1.6 02/13 Normal Medical Center CHEMISTRY ALT 52.0 U/L 0 - 65 02/13 Normal [facility] CHEMISTRY Alk Phos 183.0 U/L 39 - 136 02/13 HI [facility] CHEMISTRY eGFR null 02/13 NA 6Result Comment: Medical Expected eGFR Center for >20 yr. age group: >=60 ml/min/1.73 sq m The eGFR calculation is not valid in or for persons < 18 years of age. From [employer] (NKDEP) CHEMISTRY AGAP 16.9 meq/L 10.0 - 02/13 Normal [facility] 20. Medical Center CHEMISTRY Calcium Lvl 8.5 mg/dL 8.5 - 10.5 02/13 Normal Medical Center CHEMISTRY Bili Total 0.6 mg/dL 0.2 - 1.3 02/13 Normal [facility] Center CHEMISTRY AST 49.0 U/L 0 - 37 02/13 [facility] Medical Center CHEMISTRY Chloride Lvl 97.0 meq/L 95 - 109 02/13 Normal [facility] Center CHEMISTRY Potassium Lvl 4.9 meq/L 3.5 - 5.1 02/13 Normal 5Result Comment: Medical Specimen Center Moderately Hemolyzed. CHEMISTRY Creatinine 0.4 mg/dL 0.5 - 1.4 02/13 LOW [facility] Lvl Medical Center CHEMISTRY Sodium Lvl 134.0 135 - 145 02/13 LOW [facility] meq/L Medical Center CHEMISTRY Glucose Lvl 109.0 02/13 NA 9Interpretive [facility] mg/dL Data: Medical Reference Center Ranges : 0 - 7 days : 41 - 90 mg/dL7 days - 150 yrs : 70 - 99 mg/dL (fasting), based on the clinical recommendatio ns of the [place] [employer]. CHEMISTRY BUN 17.0 mg/dL 7 - 22 02/13 Normal Medical Center CHEMISTRY CO2 25.0 meq/L 24 - 32 02/13 Normal [facility] CHEMISTRY AGAP 18.6 meq/L 10.0 - 02/12 Normal [facility] 20.0 Medical Center CHEMISTRY Calcium Lvl 8.3 mg/dL 8.5 - 10.5 02/12 LOW [facility] CHEMISTRY Glucose Lvl 63.0 mg/dL 02/12 NA 10Interpretiv e Data: Medical Reference Center Ranges : 0 - 7 days : 41 - 90 mg/dL7 days - 150 yrs : 70 - 99 mg/dL (fasting), based on the clinical recommendatio ns of the [place] [employer]. CHEMISTRY BUN 19.0 mg/dL 7 - 22 02/12 Normal [facility] CHEMISTRY Creatinine 0.7 mg/dL 0.5 - 1.4 02/12 [facility] CHEMISTRY Sodium Lvl 135.0 135 - 145 02/12 Normal [facility] meq/L [facility] CHEMISTRY Chloride Lvl 97.0 meq/L 95 - 109 02/12 Normal [facility] CHEMISTRY Potassium Lvl 3.6 meq/L 3.5 - 5.1 02/12 Normal [facility] CHEMISTRY CO2 23.0 meq/L 24 - 32 02/12 LOW [facility] HEMATOLOGY Monocytes # 1.0 K/CMM 0.0 - 0.8 02/12 [facility] HEMATOLOGY Basophils # 0.1 K/CMM 0.0 - 0.2 02/12 Normal [facility] HEMATOLOGY Eosinophils # 0.2 K/CMM 0.0 - 0.5 02/12 Normal [facility] HEMATOLOGY Lymphocytes # 4.9 K/CMM 1.0 - 5.5 02/12 Normal [facility] HEMATOLOGY Basophils 0.7 % 0.0 - 1.0 02/12 Normal [facility] HEMATOLOGY Segs-Bands # 12.2 K/CMM 1.5 - 8.1 02/12 [facility] HEMATOLOGY Monocytes 5.5 % 2.0 - 12.0 02/12 Normal [facility] HEMATOLOGY Eosinophils 1.1 % 0.0 - 4.0 02/12 Normal [facility] HEMATOLOGY Segs 66.2 % 45.0 - 02/12 Normal [facility] 75.0 [facility] HEMATOLOGY Lymphocytes 26.5 % 20.0 - 02/12 Normal [facility] 40.0 Medical Center CHEMISTRY Magnesium Lvl 1.8 mg/dL 1.8 - 2.4 02/11 Normal [facility] CHEMISTRY AST 57.0 U/L 0 - 37 02/11 [facility] CHEMISTRY Total Protein 6.8 g/dL 6.4 - 8.4 02/11 Normal [facility] CHEMISTRY Albumin Lvl 3.2 g/dL 3.5 - 5.0 02/11 LOW [facility] CHEMISTRY Globulin 3.6 g/dL 2.0 - 4.0 02/11 Normal [facility] Center CHEMISTRY A/G Ratio 0.9 0.7 - 1.6 02/11 Normal [facility] CHEMISTRY ALT 59.0 U/L 0 - 65 02/11 Normal [facility] CHEMISTRY Alk Phos 258.0 U/L 39 - 136 02/11 [facility] CHEMISTRY Bili Total 0.7 mg/dL 0.2 - 1.3 02/11 Normal [facility] Center CHEMISTRY B/C Ratio 45.0 6 - 25 02/11 [facility] Center HEMATOLOGY Anisocyte 1+ >None Seen 02/11 ABN Medical *ABN* Center (02/11/2011 14:00:00) ?? BEDSIDE Comment2 Sliding 02/11 [facility] GLUCOSE Scale Medical TESTING Center STOOL TESTS Fecal None Seen 4 02/11 Normal 4Interpretive [facility] Data: A Value Medical (02/11/2011 00:59:00) ?? of None Seen, Center Rare, or Few is Normal. BEDSIDE Comment2 Sliding 02/11 [facility] GLUCOSE Scale [facility] TESTING Center CHEMISTRY eGFR 48.0 02/10 NA 7Result Comment: Medical Expected eGFR Center for >20 yr. age group: >=60 ml/min/1.73 sq m The eGFR calculation is not valid in or for persons < 18 years of age. From [employer] (NKDEP) CHEMISTRY Globulin 3.0 g/dL 2.0 - 4.0 02/10 Normal [facility] Center CHEMISTRY A/G Ratio 1.0 0.7 - 1.6 02/10 Normal MH [facility] Center CHEMISTRY B/C Ratio 23.0 6 - 25 02/10 Normal Medical Center CHEMISTRY AST 31.0 U/L 0 - 37 02/10 Normal [facility] Center CHEMISTRY Albumin Lvl 3.1 g/dL 3.5 - 5.0 02/10 LOW [facility] Center CHEMISTRY ALT 64.0 U/L 0 - 65 02/10 Normal [facility] Center CHEMISTRY Total Protein 6.1 g/dL 6.4 - 8.4 02/10 LOW [facility] CHEMISTRY Bili Total 0.5 mg/dL 0.2 - 1.3 02/10 Normal [facility] Center CHEMISTRY Alk Phos 235.0 U/L 39 - 136 02/10 HI [facility] Center HEMATOLOGY Polychrom Slight >None Seen 02/08 Normal Medical (02/08/2011 05:19:00) ?? Center HEMATOLOGY Hypochrom Slight >None Seen 02/08 Normal Medical (02/08/2011 05:19:00) ?? Center HEMATOLOGY Anisocyte 1+ >None Seen 02/08 ABN Medical *ABN* Center (02/08/2011 05:19:00) ?? HEMATOLOGY Plt Morph Normal 02/08 Normal Medical (02/08/2011 05:19:00) ?? Center BEDSIDE Comment2 Sliding 02/07 NA [facility] GLUCOSE Medical TESTING Center HEMATOLOGY Bands 0.0 % 0.0 - 11.0 02/06 Normal [facility] Center BLOOD BANK Antibody Scrn Negative 02/05 Normal [place] RESULTS Medical (02/05/2011 14:12:00) ?? Center BLOOD BANK ABO/Rh O NEG 02/05 Unknown [facility] Center CHEMISTRY Total CK 64.0 U/L 12 - 191 02/04 Normal Medical Center CHEMISTRY Troponin-I 0.03 ng/mL 0.00 - 02/04 Normal [place] 0.40 Medical Center CHEMISTRY Total CK 71.0 U/L 12 - 191 02/03 Normal Medical Center CHEMISTRY Troponin-I 0.05 ng/mL 0.00 - 02/03 Normal [place] 0.40 Medical Center Microbiolog Culture: 02/02 y Urine Medical Center URINALYSIS UA <=1.0 0.1 - 1.0 02/02 NA [facility] Urobilinogen mg/dL Medical
*NA*< Center br/>(02/02 17:21:00) <sup>??</s up> URINALYSIS UA Sq Epi None Seen 02/02 [facility] URINALYSIS UA Leuk Est Negative >Negative 02/02 Normal [facility] (02/02/2011 17:21:00) ?? Center URINALYSIS UA RBC null 0 - 2 02/02 Normal [facility] URINALYSIS UA Bacteria Occasional /HPF >None Seen 02/02 [facility] *NA* [place] (02/02/2011 17:21:00) ?? URINALYSIS UA Nitrite Negative >Negative 02/02 Normal [facility] (02/02/2011 17:21:00) ?? Center URINALYSIS UA Ketones Negative mg/dL >Negative 02/02 [facility] *NA* [place] (02/02/2011 17:21:00) ?? URINALYSIS UA Bili Negative >Negative 02/02 [facility] *NA* [place] (02/02/2011 17:21:00) ?? URINALYSIS UA Blood Negative >Negative 02/02 Normal [facility] (02/02/2011 17:21:00) ?? Center URINALYSIS UA Protein Negative mg/dL >Negative 02/02 Normal [facility] (02/02/2011 17:21:00) ?? Center URINALYSIS UA Glucose Negative mg/dL >Negative 02/02 [facility] *NA* [place] (02/02/2011 17:21:00) ?? URINALYSIS UA Color Light Yellow >Yellow 02/02 [facility] *NA* [place] (02/02/2011 17:21:00) ?? URINALYSIS UA Turbidity Clear >Clear 02/02 Normal [facility] (02/02/2011 17:21:00) ?? Center URINALYSIS UA Spec Grav 1.004 <<=1.030 02/02 Normal [facility] Center URINALYSIS UA pH 7.0 5.0 - 8.0 02/02 Normal [facility] CHEMISTRY T4 Free 0.98 ng/dL 0.76 - 02/01 Normal [facility] 1.46 /2010 Medical Center CHEMISTRY TSH 0.711 0.360 - 02/01 Normal [facility] uIU/mL 3.740 [facility] IMMUNOLOGY Prealbumin 19.4 mg/dL 18.0 - 02/01 Normal [facility] 45.0 /2010 Medical Center BEDSIDE Comment1 Notify 01/31 NA [facility] GLUCOSE RN/MD /2010 Medical TESTING Center BEDSIDE Gluc POC 109.0 65 - 110 01/31 Normal 2Interpretive [facility] GLUCOSE [place] mg/dL Data: Medical TESTING Center Upper Reportable Limit: 200 mg/dL. CHEMISTRY Phosphorus 2.9 mg/dL 2.5 - 4.5 01/31 Normal [facility] CHEMISTRY CO2 24.0 meq/L 24 - 32 01/31 Normal [facility] CHEMISTRY Calcium Lvl 7.7 mg/dL 8.5 - 10.5 01/31 LOW [facility] CHEMISTRY Glucose Lvl 100.0 01/31 NA 5Interpretive [place] mg/dL Data: [facility] Ranges : 0 - 7 days : 41 - 90 mg/dL7 days - 150 yrs : 70 - 99 mg/dL (fasting), based on the clinical recommendatio ns of the [place] [employer]. CHEMISTRY Sodium Lvl 138.0 135 - 145 01/31 Normal [facility] meq/L [facility] CHEMISTRY Potassium Lvl 3.9 meq/L 3.5 - 5.1 01/31 Normal [facility] CHEMISTRY BUN 17.0 mg/dL 7 - 22 01/31 Normal [facility] CHEMISTRY Creatinine 0.7 mg/dL 0.5 - 1.4 01/31 Normal [facility] Lvl [facility] CHEMISTRY Chloride Lvl 100.0 95 - 109 01/31 Normal [facility] meq/L [facility] CHEMISTRY AGAP 17.9 meq/L 10.0 - 01/31 Normal [facility] 20.0 [facility] CHEMISTRY Magnesium Lvl 1.9 mg/dL 1.8 - 2.4 01/31 Normal [facility] CHEMISTRY Ca Norm 1.13 1.16 - 01/31 LOW [place] mMol/L 1.30 Medical Center CHEMISTRY Ca Ion 1.09 1.16 - 01/31 LOW [facility] mMol/L 1.30 [facility] CHEMISTRY Ca Norm mgdL 4.52 mg/dL 4.65 - 01/31 LOW [place] 5.20 [facility] CHEMISTRY Ca Ion mgdL 4.36 mg/dL 4.65 - 01/31 LOW [place] 5.20 [facility] HEMATOLOGY Large Plt Slight >None Seen 01/[address] [facility] *[facility] (01/31/2011 03:36:00) ?? HEMATOLOGY Monocytes # 1.4 K/CMM 0.0 - 0.8 09 [facility] HEMATOLOGY Myelocytes 3.0 % <<=0.0 01/31 [facility] HEMATOLOGY Segs-Bands # 18.6 K/CMM 1.5 - 8.1 01/31 [facility] HEMATOLOGY Lymphocytes # 1.6 K/CMM 1.0 - 5.5 01/31 [facility] HEMATOLOGY Metamyelocyte 2.0 % 0.0 - 1.0 01/31 [facility] s [facility] HEMATOLOGY Lymphocytes 7.0 % 20.0 - 01/31 LOW [place] 40.0 [facility] HEMATOLOGY Monocytes 6.0 % 2.0 - 12.0 01/31 [facility] HEMATOLOGY Segs 79.0 % 45.0 - 01/31 [facility] [place] 75.0 [facility] HEMATOLOGY Bands 2.0 % 0.0 - 11.0 01/31 [facility]2010 [facility] HEMATOLOGY Hypochrom Slight >None Seen 01/31 [facility] (01/31/2011 03:36:00) ?? Center HEMATOLOGY Polychrom Slight >None Seen 01/31 [facility] Medical (01/31/2011 03:36:00) ?? Center HEMATOLOGY Rouleaux Present >None Seen 01/[address] [facility] *[facility]* [place] (01/31/2011 03:36:00) ?? HEMATOLOGY Atypical 0.0 % <<=0.0 01/31 [facility] Lymphs [facility] HEMATOLOGY Promyelocytes 1.0 % <<=0.0 01/31 [facility] HEMATOLOGY RDW 15.3 % 11.5 - 01/31 [facility] [place] 14.5 /2010 Medical Center HEMATOLOGY MPV 10.1 fL 7.4 - 10.4 01/31 Normal [facility] HEMATOLOGY Platelet 166.0 133 - 450 01/31 Normal [facility] K/CMM /2010 Medical Center HEMATOLOGY Hct 37.3 % 36.0 - 01/31 Normal [place] 48.0 /2010 Medical Center HEMATOLOGY MCHC 32.7 g/dL 32.0 - 01/31 Normal [place] 36.0 /2010 Medical Center HEMATOLOGY MCV 94.8 fL 81.0 - 01/31 Normal [place] 99.0 /2010 Medical Center HEMATOLOGY MCH 31.0 pg 27.0 - 01/31 Normal [place] 31.0 /2010 Medical Center HEMATOLOGY WBC 23.0 K/CMM 3.7 - 10.4 01/31 [facility] HEMATOLOGY RBC 3.93 M/CMM 4.20 - 01/31 LOW [place] 5.40 /2010 Medical Center HEMATOLOGY Hgb 12.2 g/dL 12.0 - 01/31 Normal [facility] 16.0 /2010 Medical Center BEDSIDE Gluc POC 188.0 65 - 110 01/31 [place] 3Interpretive [facility] GLUCOSE [place] mg/dL /2010 Data: Medical TESTING Center Upper Reportable Limit: 200 mg/dL. BEDSIDE Comment1 Notify 01/31 NA [place] GLUCOSE RENAY/ /2010 Medical TESTING Center BEDSIDE Gluc POC 233.0 65 - 110 01/31 [place] 4Interpretive [facility] GLUCOSE [place] mg/dL /2010 Data: Medical TESTING Center Upper Reportable Limit: 200 mg/dL. BEDSIDE Comment1 Notify 01/30 NA [place] GLUCOSE RENAY/ /2010 Medical TESTING Center CHEMISTRY Albumin Lvl 2.7 g/dL 3.5 - 5.0 01/29 LOW Medical Center CHEMISTRY Phosphorus 3.7 mg/dL 2.5 - 4.5 01/29 Normal Medical Center CHEMISTRY Ca Ion mgdL 4.2 mg/dL 4.65 - 01/29 LOW [place] 5. Medical Center CHEMISTRY Ca Norm mgdL 4.24 mg/dL 4. - 01/29 LOW [place] 5. Medical Center CHEMISTRY Ca Ion 1.05 1. - 01/29 LOW [place] mMol/L 1.30 Medical Center CHEMISTRY Ca Norm 1.06 1.16 - 01/29 LOW [place] mMol/L 1.30 Medical Center CHEMISTRY Magnesium Lvl 2.4 mg/dL 1.8 - 2.4 01/29 Normal [facility] Center CHEMISTRY AGAP 15.0 meq/L 10.0 - 01/29 Normal [place] 20.0 [facility] Center CHEMISTRY BUN 23.0 mg/dL 7 - 22 01/29 [facility] CHEMISTRY Creatinine 0.8 mg/dL 0.5 - 1.4 01/29 Normal [facility] Lvl [facility] Center CHEMISTRY Glucose Lvl 232.0 01/29 NA 6Interpretive [facility] mg/dL Data: Medical Reference Center Ranges : 0 - 7 days : 41 - 90 mg/dL7 days - 150 yrs : 70 - 99 mg/dL (fasting), based on the clinical recommendatio ns of the [place] [employer]. CHEMISTRY Potassium Lvl 4.0 meq/L 3.5 - 5.1 01/29 Normal [facility] CHEMISTRY Sodium Lvl 144.0 135 - 145 01/29 Normal [facility] meq/L [facility] Center CHEMISTRY Chloride Lvl 109.0 95 - 109 01/29 Normal [facility] meq/L [facility] Center CHEMISTRY CO2 24.0 meq/L 24 - 32 01/29 Normal [facility] Center CHEMISTRY Calcium Lvl 7.8 mg/dL 8.5 - 10.5 01/29 LOW [facility] HEMATOLOGY Large Plt Slight >None Seen 01/29 ABN Medical *ABN* Center (01/29/2011 10:02:00) ?? HEMATOLOGY Polychrom Slight >None Seen 01/29 Normal Medical (01/29/2011 10:02:00) ?? Center HEMATOLOGY Atypical 0.0 % <<=0.0 01/29 Normal [facility] Lymphs [facility] Center HEMATOLOGY NRBC 1.0 /100WB 01/29 NA [facility] Center HEMATOLOGY Segs 81.0 % 45.0 - 01/29 HI [place] 75.0 Medical Center HEMATOLOGY Lymphocytes 9.0 % 20.0 - 01/29 LOW [place] 40.0 Medical Center HEMATOLOGY Monocytes 5.0 % 2.0 - 12.0 01/29 Normal [facility] Center HEMATOLOGY Myelocytes 1.0 % <<=0.0 01/29 [facility] Medical [place] HEMATOLOGY Metamyelocyte 2.0 % 0.0 - 1.0 01/29 [facility] [place] Medical [facility] HEMATOLOGY Bands 2.0 % 0.0 - 11.0 01/29 Normal [facility] HEMATOLOGY Monocytes # 1.0 K/CMM 0.0 - 0.8 01/29 [facility] Medical [place] HEMATOLOGY Lymphocytes # 1.8 K/CMM 1.0 - 5.5 01/29 Normal [facility] HEMATOLOGY Segs-Bands # 16.3 K/CMM 1.5 - 8.1 01/29 [facility] Medical [place] HEMATOLOGY MPV 9.4 fL 7.4 - 10.4 01/29 Normal [facility] HEMATOLOGY Hct 33.9 % 36.0 - 01/29 [facility] [place] 48.0 Medical Center HEMATOLOGY MCV 94.0 fL 81.0 - 01/29 Normal [facility] 99.0 Medical Center HEMATOLOGY MCH 31.5 pg 27.0 - 01/29 [facility] [place] 31.0 Medical Center HEMATOLOGY MCHC 33.6 g/dL 32.0 - 01/29 Normal [facility] 36.0 Medical Center HEMATOLOGY RDW 16.1 % 11.5 - 01/29 [facility] 14.5 Medical Center HEMATOLOGY Platelet 178.0 133 - 450 01/29 Normal [facility] K/CMM /2010 Medical Center HEMATOLOGY WBC 19.6 K/CMM 3.7 - 10.4 01/29 [facility] Medical Center HEMATOLOGY Hgb 11.4 g/dL 12.0 - 01/29 [facility] [place] 16.0 [facility] Center HEMATOLOGY RBC 3.61 M/CMM 4.20 - 01/29 [facility] [place] 5.40 /2010 [facility] Center CHEMISTRY AGAP 14.2 meq/L 10.0 - 01/28 Normal [facility] 20.0 [facility] Center CHEMISTRY Chloride Lvl 116.0 95 - 109 01/28 [facility] meq/L [facility] Center CHEMISTRY Sodium Lvl 152.0 135 - 145 01/28 [facility] meq/L [facility] CHEMISTRY Potassium Lvl 3.2 meq/L 3.5 - 5.1 01/28 LOW [facility] Center CHEMISTRY CO2 25.0 meq/L 24 - 32 01/28 Normal Medical Center CHEMISTRY Calcium Lvl 7.5 mg/dL 8.5 - 10.5 01/28 LOW Medical Center CHEMISTRY Glucose Lvl 57.0 mg/dL 01/28 NA 7Interpretive Data: Medical [facility] Center Ranges : 0 - 7 days : 41 - 90 mg/dL7 days - 150 yrs : 70 - 99 mg/dL (fasting), based on the clinical recommendatio ns of the [place] [employer]. CHEMISTRY BUN 21.0 mg/dL 7 - 01/28 Normal [facility] CHEMISTRY Creatinine 0.7 mg/dL 0.5 - 1.4 01/28 Normal [facility] Center CHEMISTRY Phosphorus 3.2 mg/dL 2.5 - 4.5 01/28 Normal [facility] Center CHEMISTRY Magnesium Lvl 2.2 mg/dL 1.8 - 2.4 01/28 Normal [facility] CHEMISTRY Ca Norm 1.09 1. - 01/28 LOW [place] mMol/L 1. Medical Center CHEMISTRY Ca Ion 1.06 1.16 - 01/28 [facility] [place] mMol/L 1. Medical [place] CHEMISTRY Ca Norm mgdL 4.36 mg/dL 4.65 - 01/28 LOW [facility] 5. [facility] Center CHEMISTRY Ca Ion mgdL 4.24 mg/dL 4.65 - 01/28 [facility] 5. Medical Center HEMATOLOGY Platelet 144.0 133 - 450 01/28 Normal [facility] K/CMM /2010 Medical [place] HEMATOLOGY MPV 10.4 fL 7.4 - 10.4 01/28 Normal Medical Center HEMATOLOGY MCH 31.1 pg 27.0 - 01/28 [facility] [place] 31.0 Medical Center HEMATOLOGY MCHC 33.3 g/dL 32.0 - 01/28 Normal [facility] 36.0 Medical Center HEMATOLOGY RDW 16.0 % 11.5 - 01/28 [facility] [place] 14.5 Medical Center HEMATOLOGY Hct 32.3 % 36.0 - 01/28 [facility] [place] 48.0 Medical Center HEMATOLOGY MCV 93.5 fL 81.0 - 01/28 Normal [place] 99.0 Medical Center HEMATOLOGY RBC 3.45 M/CMM 4.20 - 01/28 [facility] [place] 5.40 Medical Center HEMATOLOGY Hgb 10.7 g/dL 12.0 - 01/28 LOW [place] 16.0 Medical Center HEMATOLOGY WBC 20.1 K/CMM 3.7 - 10.4 01/28 HI [facility] HEMATOLOGY Eosinophils 0.0 % 0.0 - 4.0 01/28 Normal [facility] HEMATOLOGY Monocytes 4.1 % 2.0 - 12.0 01/28 Normal [facility] HEMATOLOGY Segs-Bands # 18.0 K/CMM 1.5 - 8.1 01/28 HI Medical [place] HEMATOLOGY Basophils 0.0 % 0.0 - 1.0 01/28 Normal [facility] HEMATOLOGY Lymphocytes 6.6 % 20.0 - 01/28 LOW [place] 40.0 [facility] HEMATOLOGY Basophils # 0.0 K/CMM 0.0 - 0.2 01/28 Normal [facility] HEMATOLOGY Eosinophils # 0.0 K/CMM 0.0 - 0.5 01/28 Normal [facility] HEMATOLOGY Monocytes # 0.8 K/CMM 0.0 - 0.8 01/28 Normal [facility] HEMATOLOGY Lymphocytes # 1.3 K/CMM 1.0 - 5.5 01/28 Normal [facility] HEMATOLOGY Segs 89.3 % 45.0 - 01/28 [facility] [place] 75.0 Medical Center CHEMISTRY Osmolality 317.0 280 - 300 01/27 [facility] mOsm/kg [facility] CHEMISTRY POC A pH 7.56 7.35 - 01/27 [facility] [place] 7.45 [facility] Center CHEMISTRY POC A PO2 150.0 80 - 100 01/27 [facility] [place] mm[Hg] [facility] CHEMISTRY POC A Source ART 01/27 NA [facility] CHEMISTRY POC A Temp 37.0 [place] 01/27 NA [facility] CHEMISTRY POC A BE 4.0 mMol/L -2-2 - 2 01/27 [facility] CHEMISTRY POC A O2 Sat 100.0 % 95.0 - 01/27 Normal [place] 100.0 [facility] CHEMISTRY POC A HCO3 25.0 22 - 26 01/27 Normal [place] mMol/L [facility] Center CHEMISTRY POC A PCO2 28.0 35 - 45 08/29 CRIT [facility] mm[Hg] /2011 [facility] CHEMISTRY Osmolality 305.0 280 - 300 01/27 [place] mOsm/kg Medical Center HEMATOLOGY PTT 25.2 s 22.9 - 01/27 Normal 12Interpretiv [facility] 35. e Data: [facility] Heparin Center Therapeutic Range: 57 - 92 Seconds HEMATOLOGY PT 15.8 s 12.0 - 01/27 HI [place] 14. Medical Center HEMATOLOGY INR 1.26 0.85 - 01/27 [place] 9Interpretive [facility] 06.17 Data: Medical RECOMMENDED Center RANGES FOR PROTIME INR: 2.0-3.0 for most medical and surgical thromboemboli c states. 2.5-3.5 for artificial heart valves and recurrent embolism.INR SHOULD BE USED ONLY FOR PATIENTS ON STABLE ANTICOAGULANT THERAPY. HEMATOLOGY Eosinophils 0.0 % 0.0 - 4.0 01/27 Normal [facility] HEMATOLOGY Basophils 0.2 % 0.0 - 1.0 01/27 Normal [facility] HEMATOLOGY Eosinophils # 0.0 K/CMM 0.0 - 0.5 01/27 Normal [facility] HEMATOLOGY Basophils # 0.0 K/CMM 0.0 - 0.2 01/27 Normal [facility] CHEMISTRY Osmolality 306.0 280 - 300 01/26 [facility] mOsm/kg [facility] HEMATOLOGY Basophils # 0.0 K/CMM 0.0 - 0.2 01/26 Normal [facility] HEMATOLOGY Eosinophils 0.0 % 0.0 - 4.0 01/26 Normal [facility] HEMATOLOGY Eosinophils # 0.0 K/CMM 0.0 - 0.5 01/26 Normal [facility] HEMATOLOGY Basophils 0.1 % 0.0 - 1.0 01/26 Normal [facility] HEMATOLOGY PTT 29.8 s 22.9 - 01/26 Normal 13Interpretiv [facility] 35. e Data: [facility] Heparin Center Therapeutic Range: 57 - 92 Seconds HEMATOLOGY PT 15.4 s 12.0 - 01/26 [facility] 14. Medical Center HEMATOLOGY INR 1.22 0.85 - 01/26 [place] 10Interpretiv [facility] 06.17 e Data: Medical RECOMMENDED Center RANGES FOR PROTIME INR: 2.0-3.0 for most medical and surgical thromboemboli c states. 2.5-3.5 for artificial heart valves and recurrent embolism.INR SHOULD BE USED ONLY FOR PATIENTS ON STABLE ANTICOAGULANT THERAPY. CHEMISTRY POC A Glu 108.0 65 - 110 01/26 Normal [place] mg/dL [facility] CHEMISTRY POC A LA 0.8 mMol/L 0.5 - 2.2 01/26 Normal [facility] CHEMISTRY POC A Ca Ion 1.17 1.16 - 01/26 Normal [place] mMol/L 1.30 [facility] CHEMISTRY POC A K 3.6 meq/L 3.5 - 5.1 01/26 Normal [facility] CHEMISTRY POC A Na 140.0 135 - 145 01/26 Normal [place] meq/L [facility] CHEMISTRY POC A PO2 80.0 80 - 100 01/26 Normal [facility] mm[Hg] [facility] CHEMISTRY POC A PCO2 40.0 35 - 45 01/26 Normal [facility] mm[Hg] [facility] CHEMISTRY POC A Source ART 01/26 NA [facility] CHEMISTRY POC A Temp 37.0 Kel[place] 01/26 NA [facility] CHEMISTRY POC A pH 7.4 7.35 - 01/26 Normal [place] 7.45 [facility] CHEMISTRY POC A Hct 34.0 % 36.0 - 01/26 LOW [place] 48.0 [facility] CHEMISTRY POC A BE 0.0 mMol/L -2-2 - 2 01/26 Normal [facility] CHEMISTRY POC A O2 Sat 96.0 % 95.0 - 01/26 Normal [place] 100.0 [facility] CHEMISTRY POC A HCO3 25.0 22 - 26 01/26 Normal [place] mMol/L [facility] CHEMISTRY POC A O2 Sat 96.0 % 95.0 - 01/26 Normal [place] 100.0 [facility] CHEMISTRY POC A K 3.6 meq/L 3.5 - 5.1 01/26 Normal [facility] CHEMISTRY POC A LA 0.8 mMol/L 0.5 - 2.2 01/26 Normal [facility] CHEMISTRY POC A Glu 113.0 65 - 110 01/26 HI [place] mg/dL [facility] CHEMISTRY POC A Source ART 01/26 NA [facility] CHEMISTRY POC A Temp 37.0 Kelsey 01/26 NA Medical Center CHEMISTRY POC A HCO3 25.0 22 - 26 01/26 Normal [place] mMol/L /2010 [facility] CHEMISTRY POC A PO2 79.0 80 - 100 01/26 LOW [place] mm[Hg] [facility] CHEMISTRY POC A PCO2 38.0 35 - 45 01/26 Normal [place] mm[Hg] [facility] CHEMISTRY POC A pH 7.42 7.35 - 01/26 Normal [place] 7.45 [facility] CHEMISTRY POC A BE 0.0 mMol/L -2-2 - 2 01/26 Normal [facility] CHEMISTRY POC A Ca Ion 1.22 1.16 - 01/26 Normal [place] mMol/L 1.30 [facility] CHEMISTRY POC A Na 138.0 135 - 145 01/26 Normal [place] meq/L [facility] CHEMISTRY POC A Hct 36.0 % 36.0 - 01/26 Normal [place] 48.0 [facility] CHEMISTRY POC A Hct 41.0 % 36.0 - 01/26 Normal [place] 48.0 [facility] CHEMISTRY POC A Na 140.0 135 - 145 01/26 Normal [facility] meq/L [facility] CHEMISTRY POC A Ca Ion 1.05 1.16 - 01/26 LOW [place] mMol/L 1.30 [facility] CHEMISTRY POC A K 3.6 meq/L 3.5 - 5.1 01/26 Normal [facility] CHEMISTRY POC A LA 0.8 mMol/L 0.5 - 2.2 01/26 Normal [facility] CHEMISTRY POC A Glu 107.0 65 - 110 01/26 Normal [facility] mg/dL [facility] BLOOD BANK Antibody Scrn Negative 01/26 Normal [place] RESULTS Medical (01/26/2011 09:00:00) ?? Center BLOOD BANK ABO/Rh O NEG 01/26 Unknown [place] RESULTS [facility] Center HEMATOLOGY PTT 28.2 s 22.9 - 01/26 Normal 14Interpretiv [place] 35.8 e Data: [facility] Heparin Center Therapeutic Range: 57 - 92 Seconds HEMATOLOGY INR 1.24 0.85 - 01/26 [place] 11Interpretiv [place] 1.17 e Data: [facility] RECOMMENDED Center RANGES FOR PROTIME INR: 2.0-3.0 for most medical and surgical thromboemboli c states. 2.5-3.5 for artificial heart valves and recurrent embolism.INR SHOULD BE USED ONLY FOR PATIENTS ON STABLE ANTICOAGULANT THERAPY. HEMATOLOGY PT 15.6 s 12.0 - 01/26 [facility] [place] 14.7 [facility] CHEMISTRY CK MB Index 0.4 0.0 - 2.5 01/25 Normal [facility] CHEMISTRY CK MB 1.1 ng/mL 0.5 - 3.6 01/25 Normal [facility] Center CHEMISTRY Myoglobin 141.0 01/25 [facility] [place] ng/mL [facility] CHEMISTRY Troponin-T null 0.000 - 01/25 Normal [facility] 0.100 [facility] CHEMISTRY Total CK 256.0 U/L 01/25 [facility] CHEMISTRY Total CK 219.0 U/L 01/25 [facility] CHEMISTRY Troponin-T null 0.000 - 01/25 [facility] 0. [facility] CHEMISTRY CK MB Index 0.7 0.0 - 2.5 01/25 Normal [facility] CHEMISTRY CK MB 1.5 ng/mL 0.5 - 3.6 01/25 Normal [facility] Center CHEMISTRY Lactic Acid 2.4 mMol/L 0.5 - 2.2 01/25 [facility] Lvl [facility] HEMATOLOGY Target Cell Slight >None Seen 01/[address] [facility] Medical *ABN* Center (01/24/2011 19:16:00) ?? HEMATOLOGY Bands 2.0 % 0.0 - 11.0 01/25 Normal [facility] HEMATOLOGY Plt Morph Normal 01/25 Normal Medical (01/24/2011 19:16:00) ?? Center CHEMISTRY Troponin-T null 0.000 - 01/24 Normal [facility] 0. [facility] CHEMISTRY Myoglobin 60.0 ng/mL 01/24 Normal [facility] CHEMISTRY Total CK 34.0 U/L 01/24 Normal [facility] BLOOD BANK Antibody Scrn Negative 01/24 Normal [facility] RESULTS Medical (01/24/2011 03:15:00) ?? Center BLOOD BANK ABO/Rh O NEG 01/24 Unknown [place] RESULTS [facility] Center BLOOD BANK Platelet Product available 01/24 Normal [facility] RESULTS Medical (01/24/2011 03:15:00) ?? Center BLOOD BANK RBC product Product available 01/24 Normal [facility] Medical (01/24/2011 03:15:00) ?? Center CHEMISTRY CK MB Index 1.2 0.0 - 2.5 01/23 Normal [facility] CHEMISTRY CK MB 1.2 ng/mL 0.5 - 3.6 01/23 Normal [facility] CHEMISTRY Hgb A1C 8.7 % 01/23 NA 8Interpretive Data: HbA1C% [facility] eAG(mg/dL) Interpretatio n 6.0 126 Very good control 6.5 140 Very good control 7.0 154 Good Control 7.5 169 Good Control 8.0 183 Marginal Control, take action to lower 8.5 197 Marginal Control, take action to lower 9.0 212 Poor Control, take action to lower 9.5 226 Poor Control, take action to lower10.0 240 Poor Control, take action to lower CHEMISTRY Troponin-I null 0.00 - 01/23 Normal [facility] 0.40 [facility] URINALYSIS UA Ketones TR 01/23 NA [facility] URINALYSIS UA <=1.0 0.1 - 1.0 01/23 [facility] Urobilinogen mg/dL Medical
*NA*< Center br/>(01/23 05:29:00) <sup>??</s up> URINALYSIS UA Sq Epi Occasional /LPF >Few 01/23 [facility] *NA* [place] (01/23/2011 05:29:00) ?? URINALYSIS UA WBC null 0 - 5 01/23 Normal [facility] Center URINALYSIS UA Mucus Few /LPF >None Seen 01/23 [facility] *NA* [place] (01/23/2011 05:29:00) ?? URINALYSIS UA RBC null 0 - 2 01/23 Normal [facility] URINALYSIS UA Protein Negative mg/dL >Negative 01/23 Normal Medical (01/23/2011 05:29:00) ?? Center URINALYSIS UA Nitrite Negative >Negative 01/23 Normal Medical (01/23/2011 05:29:00) ?? Center URINALYSIS UA Leuk Est Negative >Negative 01/23 Normal [facility] (01/23/2011 05:29:00) ?? Center URINALYSIS UA Bili Negative >Negative 01/23 NA [facility] *NA* Center (01/23/2011 05:29:00) ?? URINALYSIS UA Glucose 150 mg/dL >Negative 01/23 ABN [facility] *ABN* Center (01/23/2011 05:29:00) ?? URINALYSIS UA Blood Negative >Negative 01/23 Normal [facility] (01/23/2011 05:29:00) ?? Center URINALYSIS UA pH 5.0 5.0 - 8.0 01/23 Normal [facility] URINALYSIS UA Spec Grav 1.01 <<=1.030 01/23 Normal [facility] URINALYSIS UA Turbidity Clear >Clear 01/23 Normal [facility] (01/23/2011 05:29:00) ?? Center URINALYSIS UA Color Yellow >Yellow 01/23 NA [facility] *NA* [place] (01/23/2011 05:29:00) ?? BACTERIAL - MRSA by PCR Negative 1 01/23 Normal 1Interpretive Data: Medical (01/23/2011 05:00:00) ?? INTERPRETATIO Center N: Negative..... .No MRSA DNA detected by PCR Positive..... .MRSA DNA detected by PCRASSAY LIMITATIONS:T his is a screening test for colonization by MRSA. A positive test result indicates the patient is colonized by MRSA, but does not necessarily mean that an infection is present or that treatment is necessary. Likewise, a negative test does not exclude colonization or infection. Patients should be evaluatedclin ically for symptoms and signs of infection before making therapeutic decisions. Routine decolonizatio n is discouraged and should only be considered for select patients after consultation with an infectious diseases specialist. Microbiolog Culture: 01/23 [facility] Acinetobacter [place] Screen Vital Signs Vital Sign Value Date Comments Source Systolic (mm Hg) 110 08/20/2018 [facility] Diastolic (mm Hg) 66 08/20/2018 [facility] Respitory Rate 33 08/20/2018 [facility] Temperature Oral (F) 98.0 F 08/20/2018 [facility] Temperature Oral (F) 97.9 F 08/19/2018 [place] [facility] [facility] Respitory Rate 20 08/19/2018 [facility] Temperature Oral (F) 97.8 F 08/19/2018 [facility] Center Systolic (mm Hg) 138 08/19/2018 [facility] Center Diastolic (mm Hg) 76 08/19/2018 [facility] Center Respitory Rate 18 08/19/2018 [facility] Systolic (mm Hg) 144 08/19/2018 [facility] Center Diastolic (mm Hg) 63 08/19/2018 [facility] Heart Rate 92 08/19/2018 [facility] Heart Rate 72 08/18/2018 [facility] Heart Rate 70 08/18/2018 [facility] BMI Calculated 49.69 08/17/2018 [facility] Height 149.86 cm 08/17/2018 [facility] Weight 111.6 08/17/2018 [facility] Weight 113.636 08/16/2018 [facility] Height 152.4 cm 08/16/2018 [facility] BMI Calculated 48.93 08/16/2018 [facility] Diastolic (mm Hg) 60.0 03/25/2011 [facility] Center Systolic (mm Hg) 151.0 03/25/2011 [facility] Temperature Oral (F) 97.6 F 03/25/2011 [facility] Heart Rate 87.0 03/25/2011 [facility] Respitory Rate 20.0 03/25/2011 [facility] Temperature Oral (F) 97.8 F 03/25/2011 [facility] Center Respitory Rate 20.0 03/25/2011 [facility] Heart Rate 98.0 03/25/2011 [facility] Center Systolic (mm Hg) 163.0 03/25/2011 [facility] Center Diastolic (mm Hg) 82.0 03/25/2011 [facility] Center Diastolic (mm Hg) 68.0 03/25/2011 [facility] Center Systolic (mm Hg) 156.0 03/25/2011 [facility] Temperature Oral (F) 97.7 F 03/25/2011 [facility] Heart Rate 95.0 03/25/2011 [facility] Respitory Rate 20.0 03/25/2011 [facility] Weight 90.909 03/22/2011 [facility] Height 149.86 cm 03/22/2011 [facility] Center Weight 90.909 03/22/2011 [facility] Height 149.86 cm 03/22/2011 [facility] Center Diastolic (mm Hg) 56.0 03/15/2011 [facility] Center Systolic (mm Hg) 128.0 03/15/2011 [facility] Center Respitory Rate 16.0 03/15/2011 [facility] Heart Rate 85.0 03/15/2011 [facility] Center Temperature Oral (F) 96.6 F 03/15/2011 [facility] Center Diastolic (mm Hg) 91.0 03/15/2011 [facility] Center Systolic (mm Hg) 121.0 03/15/2011 [facility] Center Respitory Rate 18.0 03/15/2011 [facility] Heart Rate 78.0 03/15/2011 [facility] Temperature Oral (F) 98.2 F 03/15/2011 [facility] Center Diastolic (mm Hg) 39.0 03/15/2011 [facility] Center Systolic (mm Hg) 170.0 03/15/2011 [facility] Respitory Rate 18.0 03/15/2011 [facility] Temperature Oral (F) 98.0 F 03/15/2011 [facility] Heart Rate 93.0 03/15/2011 [facility] Weight 83.665 03/14/2011 [facility] Height 149.86 cm 03/14/2011 [facility] Heart Rate 97.0 03/07/2011 [facility] Respitory Rate 20.0 03/07/2011 [facility] Center Systolic (mm Hg) 140.0 03/07/2011 [facility] Center Diastolic (mm Hg) 66.0 03/07/2011 [facility] Temperature Oral (F) 98.4 F 03/07/2011 [facility] Center Diastolic (mm Hg) 69.0 03/07/2011 [facility] Center Systolic (mm Hg) 140.0 03/07/2011 [facility] Respitory Rate 20.0 03/07/2011 [facility] Temperature Oral (F) 98.6 F 03/07/2011 [facility] Heart Rate 115.0 03/07/2011 [facility] Center Systolic (mm Hg) 131.0 03/06/2011 [facility] Temperature Oral (F) 97.6 F 03/06/2011 [facility] Respitory Rate 18.0 03/06/2011 [facility] Heart Rate 104.0 03/06/2011 [facility] Center Diastolic (mm Hg) 44.0 03/06/2011 [facility] Height 149.86 cm 02/26/2011 [facility] Weight 90.909 02/26/2011 [facility] Temperature Oral (F) 98.2 F 02/26/2011 [facility] Heart Rate 90.0 02/26/2011 [facility] Center Respitory Rate 18.0 02/26/2011 [facility] Center Systolic (mm Hg) 154.0 02/26/2011 [facility] Center Diastolic (mm Hg) 54.0 02/26/2011 [facility] Temperature Oral (F) 98.9 F 02/26/2011 [facility] Heart Rate 93.0 02/26/2011 [facility] Respitory Rate 18.0 02/26/2011 [facility] Center Systolic (mm Hg) 153.0 02/26/2011 [facility] Center Diastolic (mm Hg) 60.0 02/26/2011 [facility] Temperature Oral (F) 98.7 F 02/26/2011 [facility] Respitory Rate 20.0 02/26/2011 [facility] Center Systolic (mm Hg) 149.0 02/26/2011 [facility] Center Diastolic (mm Hg) 62.0 02/26/2011 [facility] Heart Rate 95.0 02/25/2011 [facility] Weight 100.0 02/20/2011 [facility] Height 149.86 cm 02/19/2011 [facility] Weight 100.0 02/19/2011 [facility] Heart Rate 104.0 02/19/2011 [facility] Temperature Oral (F) 98.6 F 02/19/2011 [facility] Respitory Rate 20.0 02/19/2011 [facility] Center Systolic (mm Hg) 128.0 02/19/2011 [facility] Center Diastolic (mm Hg) 63.0 02/19/2011 [facility] Respitory Rate 20.0 02/19/2011 [facility] Systolic (mm Hg) 115.0 02/19/2011 [facility] Center Diastolic (mm Hg) 58.0 02/19/2011 [facility] Heart Rate 110.0 02/19/2011 [facility] Temperature Oral (F) 97.5 F 02/19/2011 [facility] Diastolic (mm Hg) 64.0 02/18/2011 [facility] Temperature Oral (F) 98.4 F 02/18/2011 [facility] Heart Rate 108.0 02/18/2011 [facility] Respitory Rate 18.0 02/18/2011 [facility] Systolic (mm Hg) 152.0 02/18/2011 [facility] Height 149.86 cm 01/31/2011 [facility] Weight 100.455 01/31/2011 [facility] Systolic (mm Hg) 116.0 01/31/2011 [facility] Diastolic (mm Hg) 55.0 01/31/2011 [facility] Peripheral Pulse Rate 67.0 01/31/2011 [facility] Respitory Rate 20.0 01/31/2011 [facility] Temperature Oral (F) 98.5 F 01/31/2011 [facility] Peripheral Pulse Rate 65.0 01/31/2011 [facility] Systolic (mm Hg) 148.0 01/31/2011 [facility] Diastolic (mm Hg) 58.0 01/31/2011 [facility] Diastolic (mm Hg) 62.0 01/31/2011 [facility] Peripheral Pulse Rate 64.0 01/31/2011 [facility] Systolic (mm Hg) 153.0 01/31/2011 [facility] Respitory Rate 21.0 01/31/2011 [facility] Temperature Oral (F) 97.8 F 01/31/2011 [facility] Respitory Rate 16.0 01/31/2011 [facility] Temperature Oral (F) 98.1 F 01/31/2011 [facility] Height 149.86 cm 01/23/2011 [facility] Weight 89.0 01/23/2011 [facility] Encounters Location Location Encounter Encounter Reason Attending ADM DC Status Source Details Type Number For Provider Date Date Visit [facility] [place] [id number] LIFE ANKUR CARABALLO 01/23 01/23 Active [facility] Medical FLIGHT /2010 [facility] Inpatient [id number] BRAIN KELLEY DAY 01/23 01/31 Active [facility] Medical MASS/DONNIE [facility] [place] [id number] BRAIN MEILANI 01/31 02/19 Active MASS MAPA /2010 [facility] Inpatient [id number] HYDROCEP KELLEY DAY 02/19 02/26 Active [facility] Medical HALUS /2010 [facility] [place] [id number] SDH MEILANI 02/26 03/07 Active MAPA /2010 [facility] OU [id number] DEHYDRAT MI 03/14 03/15 Active [facility] Medical ION KORIMILLI /2010 [facility] Inpatient [id number] DEHYDRAT ALLEN 03/22 03/25 Active [facility] ION,PAIN KINZA /2010 [facility] CONTROL Center MNA Phone [id number] 08/16 08/18 Julia Neurosurger Message /2018 Neuro y [facility] Inpatient [id number] Malia 08/16 08/20 [facility] Jorge Alberto Reyesro /2018 [facility] [place] Procedures Procedure Code Date Perfomer Comments Source Selective catheter 59836 08/19/2018 [facility] placement, vertebral Medical artery, unilateral, Center with angiography of the ipsilateral vertebral circulation and all associated radiological supervision and interpretation, includes angiography of the cervicocerebral arch, when performed Insertion or [id number] 01/26/2011 [facility] Replacement of Skull Medical Tongs or Halo Center Traction Device Other Excision or [id number] 01/26/2011 [facility] Destruction of Lesion Medical or Tissue of Brain Center Excision of Lesion or [id number] 01/24/2011 [facility] Tissue of Cerebral Medical Meninges Center Intracranial Pressure 01.10 01/24/2011 [facility] Transfusion of Packed [id number] 01/24/2011 [facility] Cervical laminectomy [id number] [facility] Neuro section [id number] [facility] Neuro Resection [id number] [facility] Neuro Shunt construction [id number] [facility] Neuro Tonsillectomy [id number] [facility] Neuro Cervical laminectomy [id number] [facility] section [id number] [facility] Resection [id number] [facility] Shunt construction [id number] [facility] Tonsillectomy [id number] [facility]
--- OUTSIDE RECORDS SUMMARY | 2018-09-07 21:53 | XMS REPORT | Summary of Care ---
:1945 Author Organization [facility] Address [address] [place] [id number] Encounter HQ Andrear_[email or web address](FIN) [id number] Date(s): 08/16/18 - 08/19/[address] Professional Services provided by [facility] [place] [address]- Discharge Disposition: Home or Self Care Attending Physician: Sean Coy MD Admitting Physician: Malia Hanley MD Vital Signs Most recent to oldest 1 2 3 [Reference Range]: Height 149.86 cm 152.4 cm (08/17/18 3:40 AM) (08/16/18 3:13 PM) Temperature Oral [96.4-99.1 98.0 DegF 97.9 DegF 97.8 DegF DegF] (08/19/18 7:50 PM) (08/19/18 3:51 PM) (08/19/18 12:23 PM) Blood Pressure [90-140/60-90 110/66 mmHg 138/76 mmHg 144/63 mmHg mmHg] (08/19/18 7:50 PM) (08/19/18 12:15 PM) *HI* (08/19/18 12:00 PM) Respiratory Rate [14-20 33 BRMIN 20 BRMIN 18 BRMIN BRMIN] *HI* (08/19/18 2:00 PM) (08/19/18 12:15 PM) (08/19/18 7:50 PM) Peripheral Pulse Rate [60-100 92 bpm 72 bpm 70 bpm bpm] (08/18/18 8:40 PM) (08/18/18 4:09 AM) (08/17/18 11:38 PM) Weight 111.6 kg 113.636 kg (08/17/18 3:40 AM) (08/16/18 3:13 PM) Body Mass Index 49.69 m2 48.93 m2 (08/17/18 3:40 AM) (08/16/18 3:13 PM) Problem List Condition Effective Dates Status Health Status Informant Altered mental status(Confirmed) Active 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 Resolved CAD - Coronary artery Resolved disease(Confirmed) Craniotomy(Confirmed) Active DM - Diabetes mellitus(Confirmed) Resolved DM - Diabetes mellitus(Confirmed) 02/18/11 Active Heart failure(Confirmed)3 Resolved HTN - Hypertension(Confirmed) Resolved HTN - Hypertension(Confirmed) Active Hypothyroid(Confirmed) Resolved Itching(Confirmed) Active Meningioma of brain(Confirmed) Active Morbid obesity(Confirmed) Resolved JD - Obstructive sleep Resolved apnea(Confirmed) Pain(Confirmed) Active Visual disturbance(Confirmed) Active 1Data migrated from [employer] on 01/23/15.2right [id number] Allergies, Adverse Reactions, Alerts Substance Reaction Severity Status penicillins1 rash Active ciprofloxacin Active erythromycin2 Active phenobarbital rash Active aspirin3 severe chest pain Active cefepime Active Cortizone-10 Active Adhesive Tape4 Active PHENobarbital5 Active 1Data migrated from [employer] on 01/22/15. Originally documented as PCN.2Data migrated from [employer] on 01/22/15. Originally documented as ERYTHROMYCIN.3Data migrated from [employer] on 01/22/15. Originally documented as ASPIRIN.4Data migrated from [employer] on 08/01/15. Originally documented as ADHESIVE TAPE.5Data migrated from [employer] on 01/22/15. Originally documented as PHENOBARBITAL. Medications amLODIPine 5 mg, 1 tab, Route: PO, Drug form: TAB, Daily, Dosing Weight 111.6, kg, Start date: 08/17/18 15:30:00 CDT, Duration: 30 day, Stop date: 09/16/18 9:00:00 CDT Notes: (Same as: Juli) Start Date: 08/17/18 Stop Date: 08/18/18 Status: DiscontinuedamLODIPine 10 mg, 1 tab, Route: PO, Drug form: TAB, Q24H, Dosing Weight 111.6, kg, Start date: 08/19/18 9:00:00CDT, Duration: 30 day, Stop date: 09/17/18 9:00:00 CDT Notes: (Same as: Juli) Start Date: 08/19/18 Stop Date: 08/19/18 Status: DiscontinuedamLODIPine 10 mg, 1 tab, Route: PO, Drug form: TAB, Daily, Dosing Weight 111.6, kg, Start date: 08/18/18 9:00:00 CDT, Duration: 30 day, Stop date: 09/16/18 9:00:00 CDT Notes: (Same as: Juli) Start Date: 08/18/18 Stop Date: 08/19/18 Status: DiscontinuedamLODIPine 5 mg oral tablet 5 mg=1 tab, PO, Daily, # 90 tab, 3 Refill(s) Start Date: 08/19/18 Stop Date: 08/14/19 Status: OrderedAtivan 1 mg, 0.5 mL, Route: IV, Drug form: INJ, ONCE, Dosing Weight 111.6, kg, PRN Other -See Comment, Start date: 08/18/18 9:40:00 CDT, MRI Notes: (Same as: Ativan) Start Date: 08/18/18 Stop Date: 08/19/18 Status: Discontinuedatorvastatin 40 mg, Route: PO, Drug form: TAB, Bedtime, Dosing Weight 111.6, kg, Start date: 08/17/18 21:00:00 CDT, Duration: 30 day, Stop date: 09/15/18 21:00:00 CDT Start Date: 08/17/18 Stop Date: 08/17/18 Status: Canceledbenzonatate 200 mg, 2 cap, Route: PO, Drug form: CAP, TID, Dosing Weight 111.6, kg, PRN Cough, Start date: 08/17/18 12:18:00 CDT, Duration: 30 day, Stop date: 09/16/18 12:17:00 CDT Notes: (Same As: Drake Hidalgo)"Do Not Crush" Start Date: 08/17/18 Stop Date: 08/19/18 Status: Discontinuedbisacodyl 10 mg, 1 supp, Route: VA, Drug form: SUPP, Daily, Dosing Weight 113.636, kg, PRN Constipation, Startdate: 08/17/18 1:06:00 CDT, Duration: 30 day, Stop date: 09/16/18 1:05:00 CDT Notes: (Same As: Dulcolax, Bisco-Lax) Start Date: 08/17/18 Stop Date: 08/19/18 Status: Discontinuedclopidogrel 75 mg oral tablet 75 mg=1 tab, PO, Daily, # 90 tab, 3 Refill(s), Pharmacy: [facility] [id number] Start Date: 08/19/18 Stop Date: 08/14/19 Status: OrderedCrestor 20 mg, 2 tab, Route: PO, Drug form: TAB, Bedtime, Dosing Weight 111.6, kg, Start date: 08/17/18 21:00:00 CDT, Duration: 30 day, Stop date: 09/15/18 21:00: 00 CDT Notes: (Same As: Crestor) Start Date: 08/17/18 Stop Date: 08/19/18 Status: DiscontinuedDextrose 50% in Water (bolus) IV 12.5 gm, 25 mL, Route: IVP, Drug Form: INJ, Dosing Weight 113.636, kg, PRN, PRN Blood Glucose Results, Start date: 08/17/18 2:18:00 CDT, Duration: 30 day, Stop date: 09/16/18 2:17:00 CDT Start Date: 08/17/18 Stop Date: 08/19/18 Status: DiscontinuedDextrose 50% in Water (bolus) IV 25 gm, 50 mL, Route: IVP, Drug Form: INJ, Dosing Weight 113.636, kg, PRN, PRN Blood Glucose Results,Start date: 08/17/18 2:18:00 CDT, Duration: 30 day, Stop date: 09/16/18 2:17:00 CDT Start Date: 08/17/18 Stop Date: 08/19/18 Status: DiscontinuedfentaNYL 50 microgram, Route: IV, ONCE, Dosing Weight 111.6, kg, Start date: 08/19/18 8: 49:00 CDT, Stop date:08/19/18 8:49:00 CDT Start Date: 08/19/18 Stop Date: 08/19/18 Status: Completedfurosemide 20 mg oral tablet 20 mg, 1 tab, Route: PO, Drug form: TAB, Every Other Day, Dosing Weight 111.6, kg, Start date: 08/20/18 9:00:00 CDT, Duration: 30 day, Stop date: 09/17/18 9:00 :00 CDT Notes: (Same as: Lasix) May cause GI upset. Give with food or milk. Start Date: 08/20/18 Stop Date: 08/19/18 Status: Canceledfurosemide 20 mg oral tablet 40 mg, 1 tab, Route: PO, Drug form: TAB, ONCE, Dosing Weight 111.6, kg, Start date: 08/19/18 10:14:00 CDT, Stop date: 08/19/18 10:14:00 CDT Notes: (Same as: Lasix) May cause GI upset. Give with food or milk. Start Date: 08/19/18 Stop Date: 08/19/18 Status: Completedfurosemide 20 mg oral tablet 20 mg=1 tab, PO, Every Other Day, # 15 tab, 0 Refill(s) Start Date: 08/19/18 Stop Date: 09/18/18 Status: Orderedfurosemide 20 mg oral tablet 40 mg, Route: PO, Drug form: TAB, Daily, Dosing Weight 111.6, kg, Start date: 21:00:00 CDT,Duration: 30 day, Stop date: 09/18/18 9:00:00 CDT Start Date: 08/19/18 Stop Date: 08/19/18 Status: Canceledglucagon 1 mg, Route: IM, Drug form: PDR/INJ, PRN, Dosing Weight 113.636, kg, PRN Blood Glucose Results, Start date: 08/17/18 2:18:00 CDT, Duration: 30 day, Stop date: 09/16/18 2:17:00 CDT Start Date: 08/17/18 Stop Date: 08/19/18 Status: Discontinuedheparin 5,000 unit, 1 mL, Route: SUB-Q, Drug form: INJ, Q8H, Dosing Weight 111.6, kg, Start date: 08/18/18 0:00:00 CDT, Duration: 30 day, Stop date: 09/16/18 16:00: 00 CDT Notes: porcine heparin Start Date: 08/18/18 Stop Date: 08/19/18 Status: Discontinuedheparin 3,000 unit, Route: IV, ONCE, Dosing Weight 111.6, kg, Start date: 08/19/18 8:49: 00 CDT, Stop date: 08/19/18 8:49:00 CDT Start Date: 08/19/18 Stop Date: 08/19/18 Status: CompletedhydrALAZINE 10 mg, Route: IV, ONCE, Dosing Weight 111.6, kg, Start date: 08/19/18 9:10:00 CDT, Stop date: 08/19/18 9:10:00 CDT Start Date: 08/19/18 Stop Date: 08/19/18 Status: CompletedImodium A-D 1 mg, 5 mL, Route: PO, Drug form: LIQ, Q6H, Dosing Weight 111.6, kg, PRN Diarrhea, Start date: 08/18/18 12:08:00 CDT, Duration: 30 day, Stop date: 12:07:00 CDT Notes: Same as Imodium Start Date: 08/18/18 Stop Date: 08/19/18 Status: DiscontinuedImodium A-D EZ Chews 2 mg, Route: CHEW, Dosing Weight 111.6, kg, BID, PRN as needed for loose stool, Start date: 08/17/1912:34:00 CDT, Duration: 30 day, Stop date: 09/16/18 13:33: 00 CDT Start Date: 08/17/18 Stop Date: 08/17/18 Status: Deletedinsulin glargine 20 unit, 0.2 mL, Route: SUB-Q, Drug form: SOLN, QPM, Start date: 08/17/18 17:00: 00 CDT, Duration: 30day, Stop date: 09/15/18 17:00:00 CDT Notes: Same as: Akash)Do not hold insulin without contacting prescriberWASTE: F /P - Black; E - Municipal Trash Bin Start Date: 08/17/18 Stop Date: 08/19/18 Status: Discontinuedinsulin glargine 100 units/mL subcutaneous solution 20 unit, SUB-Q, QPM, # 15 mL, 3 Refill(s) Start Date: 08/19/18 Stop Date: 08/14/19 Status: OrderedInsulin regular 10 unit, 0.1 mL, Route: SUB-Q, Drug form: SOLN, TID-Before Meals, Dosing Weight 111.6, kg, PRN BloodGlucose Results, Start date: 08/17/18 9:05:00 CDT, Duration : 30 day, Stop date: 09/16/18 9:04:00 CDT Notes: (Same as: Humulin R) Roll in palms of hands gently; Do not shake vigorously. "single patientuse only"(Restricted to patients requiring a dose &gt ; 60 units)WASTE: F/P - Black; E - [facility] Trash Bin Stable for 28 days at room temperatureExpires in days from Date Start Date: 08/17/18 Stop Date: 08/19/18 Status: DiscontinuedInsulin regular 8 unit, 0.08 mL, Route: SUB-Q, Drug form: SOLN, TID-Before Meals, Dosing Weight 111.6, kg, PRN BloodGlucose Results, Start date: 08/17/18 9:05:00 CDT, Duration : 30 day, Stop date: 09/16/18 9:04:00 CDT Notes: (Same as: Humulin R) Roll in palms of hands gently; Do not shake vigorously. "single patientuse only"(Restricted to patients requiring a dose &gt ; 60 units)WASTE: F/P - Black; E - [facility] Trash [facility] Stable for 28 days at room temperatureExpires in days from Date Start Date: 08/17/18 Stop Date: 08/19/18 Status: DiscontinuedInsulin regular 6 unit, 0.06 mL, Route: SUB-Q, Drug form: SOLN, TID-Before Meals, Dosing Weight 111.6, kg, PRN BloodGlucose Results, Start date: 08/17/18 9:05:00 CDT, Duration : 30 day, Stop date: 09/16/18 9:04:00 CDT Notes: (Same as: Humulin R) Roll in palms of hands gently; Do not shake vigorously. "single patientuse only"(Restricted to patients requiring a dose &gt ; 60 units)WASTE: F/P - Black; E - [facility] Trash [facility] Stable for 28 days at room temperatureExpires in days from Date Start Date: 08/17/18 Stop Date: 08/19/18 Status: DiscontinuedInsulin regular 4 unit, 0.04 mL, Route: SUB-Q, Drug form: SOLN, TID-Before Meals, Dosing Weight 111.6, kg, PRN BloodGlucose Results, Start date: 08/17/18 9:05:00 CDT, Duration : 30 day, Stop date: 09/16/18 9:04:00 CDT Notes: (Same as: Humulin R) Roll in palms of hands gently; Do not shake vigorously. "single patientuse only"(Restricted to patients requiring a dose &gt ; 60 units)WASTE: F/P - Black; E - [facility] Trash [facility] Stable for 28 days at room temperatureExpires in days from Date Start Date: 08/17/18 Stop Date: 08/19/18 Status: DiscontinuedInsulin regular 2 unit, 0.02 mL, Route: SUB-Q, Drug form: SOLN, TID-Before Meals, Dosing Weight 111.6, kg, PRN BloodGlucose Results, Start date: 08/17/18 9:05:00 CDT, Duration : 30 day, Stop date: 09/16/18 9:04:00 CDT Notes: (Same as: Humulin R) Roll in palms of hands gently; Do not shake vigorously. "single patientuse only"(Restricted to patients requiring a dose &gt ; 60 units)WASTE: F/P - Black; E - [facility] Trash [facility] Stable for 28 days at room temperatureExpires in days from Date Start Date: 08/17/18 Stop Date: 08/19/18 Status: DiscontinuedInsulin regular 3 unit, 0.03 mL, Route: SUB-Q, Drug form: SOLN, TID-Before Meals, Dosing Weight 113.636, kg, PRN Blood Glucose Results, Start date: 08/17/18 3:18:00 CDT, Duration: 30 day, Stop date: 09/16/18 3:17:00 CDT Notes: (Same as: Humulin R) Roll in palms of hands gently; Do not shake vigorously. "single patientuse only"(Restricted to patients requiring a dose &gt ; 60 units)WASTE: F/P - Black; E - [facility] Trash Bin Stable for 28 days at room temperatureExpires in days from Date Start Date: 08/17/18 Stop Date: 08/17/18 Status: DiscontinuedInsulin regular 1 unit, 0.01 mL, Route: SUB-Q, Drug form: SOLN, TID-Before Meals, Dosing Weight 113.636, kg, PRN Blood Glucose Results, Start date: 08/17/18 3:18:00 CDT, Duration: 30 day, Stop date: 09/16/18 3:17:00 CDT Notes: (Same as: Humulin R) Roll in palms of hands gently; Do not shake vigorously. "single patientuse only"(Restricted to patients requiring a dose &gt ; 60 units)WASTE: F/P - Black; E - [facility] Trash Bin Stable for 28 days at room temperatureExpires in days from Date Start Date: 08/17/18 Stop Date: 08/17/18 Status: DiscontinuedInsulin regular 5 unit, 0.05 mL, Route: SUB-Q, Drug form: SOLN, TID-Before Meals, Dosing Weight 113.636, kg, PRN Blood Glucose Results, Start date: 08/17/18 3:18:00 CDT, Duration: 30 day, Stop date: 09/16/18 3:17:00 CDT Notes: (Same as: Humulin R) Roll in palms of hands gently; Do not shake vigorously. "single patientuse only"(Restricted to patients requiring a dose &gt ; 60 units)WASTE: F/P - Black; E - [facility] Trash Bin Stable for 28 days at room temperatureExpires in days from Date Start Date: 08/17/18 Stop Date: 08/17/18 Status: DiscontinuedInsulin regular 4 unit, 0.04 mL, Route: SUB-Q, Drug form: SOLN, TID-Before Meals, Dosing Weight 113.636, kg, PRN Blood Glucose Results, Start date: 08/17/18 3:18:00 CDT, Duration: 30 day, Stop date: 09/16/18 3:17:00 CDT Notes: (Same as: Humulin R) Roll in palms of hands gently; Do not shake vigorously. "single patientuse only"(Restricted to patients requiring a dose &gt ; 60 units)WASTE: F/P - Black; E - [facility] Trash Bin Stable for 28 days at room temperatureExpires in days from Date Start Date: 08/17/18 Stop Date: 08/17/18 Status: DiscontinuedInsulin regular 2 unit, 0.02 mL, Route: SUB-Q, Drug form: SOLN, TID-Before Meals, Dosing Weight 113.636, kg, PRN Blood Glucose Results, Start date: 08/17/18 3:18:00 CDT, Duration: 30 day, Stop date: 09/16/18 3:17:00 CDT Notes: (Same as: Humulin R) Roll in palms of hands gently; Do not shake vigorously. "single patientuse only"(Restricted to patients requiring a dose &gt ; 60 units)WASTE: F/P - Black; E - [facility] Trash Bin Stable for 28 days at room temperatureExpires in days from Date Start Date: 08/17/18 Stop Date: 08/17/18 Status: Discontinuedlabetalol 20 mg, 4 mL, Route: IVP, Drug form: INJ, Q10Min, Dosing Weight 113.636, kg, PRN Hypertension, Start date: 08/16/18 23:38:00 CDT, Duration: 30 day, Stop date: 23:37:00 CDT Start Date: 08/16/18 Stop Date: 08/19/18 Status: DiscontinuedLantus Solostar Pen 100 units/mL subcutaneous solution 40 unit, SUB-Q, Bedtime, # 3 mL, 3 Refill(s) Start Date: 08/17/18 Stop Date: 08/19/18 Status: Discontinuedloperamide 2 mg, 10 mL, Route: PO, Drug form: LIQ, ONCE, PRN Loose Stools, Start date: 14:48:00 CDT Notes: Same as Imodium Start Date: 08/17/18 Stop Date: 08/17/18 Status: Completedmetoprolol tartrate 25 mg oral tablet 25 mg=1 tab, PO, BID, # 60 tab, 0 Refill(s) Start Date: 08/19/18 Stop Date: 09/18/18 Status: Orderedmidazolam 1 mg, Route: IV, ONCE, Dosing Weight 111.6, kg, Start date: 08/19/18 8:49:00 CDT , Stop date: 08/19/18 8:49:00 CDT Start Date: 08/19/18 Stop Date: 08/19/18 Status: CompletedOmnipaque 350 150 ml, Route: INTRAARTERIAL, Dosing Weight 111.6, kg, ONCE, Start date: 8:49:00 CDT, Stop date: 08/19/18 8:49:00 CDT Start Date: 08/19/18 Stop Date: 08/19/18 Status: CompletedPlavix 75 mg, 1 tab, Route: PO, Drug form: TAB, Daily, Dosing Weight 111.6, kg, Start date: 08/17/18 12:24:00 CDT, Duration: 30 day, Stop date: 09/16/18 9:00:00 CDT Notes: (Same As: Plavix) Start Date: 08/17/18 Stop Date: 08/19/18 Status: Discontinuedramipril 5 mg, 1 cap, Route: PO, Drug form: CAP, Daily, Dosing Weight 111.6, kg, Start date: 08/17/18 15:30:00 CDT, Duration: 30 day, Stop date: 09/16/18 9:00:00 CDT Notes: (Same as:Altace) Start Date: 08/17/18 Stop Date: 08/18/18 Status: Discontinuedramipril 10 mg, 2 cap, Route: PO, Drug form: CAP, Q24H, Dosing Weight 111.6, kg, Start date: 08/19/18 10:00:00 CDT, Duration: 30 day, Stop date: 09/17/18 10:00:00 CDT Notes: (Same as:Altace) Start Date: 08/19/18 Stop Date: 08/19/18 Status: Discontinuedramipril 10 mg, 2 cap, Route: PO, Drug form: CAP, Daily, Dosing Weight 111.6, kg, Start date: 08/18/18 9:00:00 CDT, Duration: 30 day, Stop date: 09/16/18 9:00:00 CDT Notes: (Same as:Altace) Start Date: 08/18/18 Stop Date: 08/19/18 Status: Discontinuedramipril 5 mg oral capsule 10 mg=2 cap, PO, Q24H, # 180 cap, 3 Refill(s) Start Date: 08/19/18 Stop Date: 08/14/19 Status: Orderedrosuvastatin 10 mg oral tablet 20 mg=2 tab, PO, Bedtime, # 180 tab, 3 Refill(s) Start Date: 08/19/18 Stop Date: 08/14/19 Status: OrderedVisipaque 320mg/ml 100 mL, Route: IVP, Drug Form: SOLN, Dosing Weight 111.6, kg, ONCALL, STAT, Start date: 08/18/18 13:07:00 CDT, Duration: 1 doses or times, Dose=2.2ml/kg, Max cbcv=[id number] -- "To be infused by Radiology Staff ONLY" Start Date: 08/18/18 Stop Date: 08/18/18 Status: CompletedVisipaque 320mg/ml 60 mL, Route: IVP, Drug Form: SOLN, Dosing Weight 113.636, kg, ONCALL, STAT, Start date: 08/16/18 20:39:00 CDT, Duration: 1 doses or times, Dose=2.2ml/kg, Max lelv=517kb -- "To be infused by RadiologyStaff ONLY" Start Date: 08/16/18 Stop Date: 08/16/18 Status: Completed Results ELECTROLYTES Most recent to oldest 1 2 3 [Reference Range]: Sodium Lvl [135-145 mEq/L] 138 mEq/L 142 mEq/L 142 mEq/L (08/19/18 4:40 AM) (08/18/18 5:45 AM) (08/16/18 3:35 PM) Potassium Lvl [3.5-5.1 4.6 mEq/L 1 3.6 mEq/L 3.9 mEq/L mEq/L] (08/19/18 4:40 AM) (08/18/18 5:45 AM) (08/16/18 3:35 PM) Chloride Lvl [95-109 mEq/L] 106 mEq/L 108 mEq/L 104 mEq/L (08/19/18 4:40 AM) (08/18/18 5:45 AM) (08/16/18 3:35 PM) CO2 [24-32 mEq/L] 23 mEq/L 27 mEq/L 30 mEq/L *LOW* (08/18/18 5:45 AM) (08/16/18 3:35 PM) (08/19/18 4:40 AM) AGAP [10.0-20.0 mEq/L] 13.6 mEq/L 10.6 mEq/L 11.9 mEq/L (08/19/18 4:40 AM) (08/18/18 5:45 AM) (08/16/18 3:35 PM) 1Result Comment: Specimen Moderately Hemolyzed.CHEM PANEL Most recent to oldest 1 2 3 [Reference Range]: Creatinine Lvl [0.50-1.40 0.94 mg/dL 0.83 mg/dL 0.91 mg/dL mg/dL] (08/19/18 4:40 AM) (08/18/18 5:45 AM) (08/16/18 3:35 PM) eGFR 62 mL/min/1.73m2 1 71 mL/min/1.73m2 2 64 mL/min/1.73m2 3 *NA* *NA* *NA* (08/19/18 4:40 AM) (08/18/18 5:45 AM) (08/16/18 3:35 PM) BUN [7-22 mg/dL] 13 mg/dL 13 mg/dL 16 mg/dL (08/19/18 4:40 AM) (08/18/18 5:45 AM) (08/16/18 3:35 PM) Glucose Lvl [70-99 mg/dL] 160 mg/dL 162 mg/dL 121 mg/dL *HI* *HI* *HI* (08/19/18 4:40 AM) (08/18/18 5:45 AM) (08/16/18 3:35 PM) Total Protein [6.4-8.4 g/dL] 6.9 g/dL (08/18/18 5:45 AM) Albumin Lvl [3.5-5.0 g/dL] 2.6 g/dL *LOW* (08/18/18 5:45 AM) Globulin [2.7-4.2 g/dL] 4.3 g/dL *HI* (08/18/18 5:45 AM) A/G Ratio [0.7-1.6] 0.6 *LOW* (08/18/18 5:45 AM) Calcium Lvl [8.5-10.5 mg/dL] 8.8 mg/dL 8.5 mg/dL 9.6 mg/dL (08/19/18 4:40 AM) (08/18/18 5:45 AM) (08/16/18 3:35 PM) Phosphorus [2.5-4.5 mg/dL] 3.4 mg/dL 3.6 mg/dL (08/19/18 4:40 AM) (08/18/18 5:45 AM) Magnesium Lvl [1.8-2.4 1.9 mg/dL 1.8 mg/dL mg/dL] (08/19/18 4:40 AM) (08/18/18 5:45 AM) ALT [0-65 unit/L] 30 unit/L (08/18/18 5:45 AM) AST [0-37 unit/L] 21 unit/L (08/18/18 5:45 AM) Alk Phos [39-136 unit/L] 132 unit/L (08/18/18 5:45 AM) Bili Total [0.2-1.3 mg/dL] 0.5 mg/dL (08/18/18 5:45 AM) Bili Direct [0.0-0.3 mg/dL] <0.1 mg/dL (08/18/18 5:45 AM) Bili Indirect [0.0-1.0 >0.4 mg/dL mg/dL] (08/18/18 5:45 AM) 1Result Comment: The eGFR is calculated using the CKD-EPI formula. In most young , healthy individualsthe eGFR will be >90 mL/min/1.73m2. The eGFR declines with age. An eGFR of 60-89 may be normal insome populations, particularly the elderly, for whom the CKD-EPI formula has not been extensively validated. Use of the eGFR is not recommended in the following populations: Individuals with unstable creatinine concentrations, including patients and those with serious co-morbid conditions. Patients with extremes in muscle mass or diet. The data above are obtained from the National Kidney Disease Education Program ( NK[employer]) which additionally recommends that when the eGFR is used in patients with extremes of body mass index for purposesof drug dosing, the eGFR should be multiplied by the estimated BMI.2Result Comment: The eGFR is calculated using the CKD-EPI formula. In most young, healthy individualsthe eGFR will be >90 mL/min/1.73m2. The eGFR declines with age. An eGFR of 60-89 may be normal insome populations, particularly the elderly, for whom the CKD-EPI formula has not been extensively validated. Use of the eGFR is not recommended in the following populations: Individuals with unstable creatinine concentrations, including patients and those with serious co-morbid conditions. Patients with extremes in muscle mass or diet. The data above are obtained from the National Kidney Disease Education Program ( NKDEP) which additionally recommends that when the eGFR is used in patients with extremes of body mass index for purposesof drug dosing, the eGFR should be multiplied by the estimated BMI.3Result Comment: The eGFR is calculated using the CKD-EPI formula. In most young, healthy individualsthe eGFR will be >90 mL/min/1.73m2. The eGFR declines with age. An eGFR of 60-89 may be normal insome populations, particularly the elderly, for whom the CKD-EPI formula has not been extensively validated. Use of the eGFR is not recommended in the following populations: Individuals with unstable creatinine concentrations, including patients and those with serious co-morbid conditions. Patients with extremes in muscle mass or diet. The data above are obtained from the National Kidney Disease Education Program ( NKDEP) which additionally recommends that when the eGFR is used in patients with extremes of body mass index for purposesof drug dosing, the eGFR should be multiplied by the estimated BMI.CARDIAC ENZYMES Most recent to oldest [Reference Range]: 1 2 3 BNP [<=100 pg/mL] 98 pg/mL (08/19/18 4:40 AM) PARATHYROID PROFILE Most recent to oldest [Reference Range]: 1 2 3 Ca Ion WB [1.05-1.25 mMol/L] 1.02 mMol/L 1.06 mMol/L *LOW* (08/18/18 5:45 AM) (08/19/18 4:40 AM) Ca Norm WB [1.05-1.25 mMol/L] 0.98 mMol/L 1.05 mMol/L *LOW* (08/18/18 5:45 AM) (08/19/18 4:40 AM) URINE AND STOOL Most recent to oldest [Reference Range]: 1 2 3 Occult Bld Stl [Negative] Negative (08/19/18 4:40 AM) HEMATOLOGY Most recent to oldest 1 2 3 [Reference Range]: WBC [3.7-10.4 K/CMM] 8.5 K/CMM 9.7 K/CMM 8.7 K/CMM (08/19/18 5:52 PM) (08/19/18 4:40 AM) (08/18/18 5:45 AM) RBC [4.20-5.40 M/CMM] 5.73 M/CMM 5.35 M/CMM 5.30 M/CMM *HI* (08/19/18 4:40 AM) (08/18/18 5:45 AM) (08/19/18 5:52 PM) Hgb [12.0-16.0 g/dL] 17.8 g/dL 16.6 g/dL 17.0 g/dL *HI* *HI* *HI* (08/19/18 5:52 PM) (08/19/18 4:40 AM) (08/18/18 5:45 AM) Hct [36.0-48.0 %] 52.9 % 49.7 % 49.2 % *HI* *HI* *HI* (08/19/18 5:52 PM) (08/19/18 4:40 AM) (08/18/18 5:45 AM) MCV [80.0-98.0 fL] 92.3 fL 93.0 fL 92.8 fL (08/19/18 5:52 PM) (08/19/18 4:40 AM) (08/18/18 5:45 AM) MCH [27.0-31.0 pg] 31.0 pg 31.1 pg 32.1 pg (08/19/18 5:52 PM) *HI* *HI* (08/19/18 4:40 AM) (08/18/18 5:45 AM) MCHC [32.0-36.0 g/dL] 33.6 g/dL 33.4 g/dL 34.6 g/dL (08/19/18 5:52 PM) (08/19/18 4:40 AM) (08/18/18 5:45 AM) RDW [11.5-14.5 %] 13.7 % 13.7 % 13.6 % (08/19/18 5:52 PM) (08/19/18 4:40 AM) (08/18/18 5:45 AM) MPV [7.4-10.4 fL] 9.7 fL 9.9 fL 9.7 fL (08/19/18 5:52 PM) (08/19/18 4:40 AM) (08/18/18 5:45 AM) Platelet [133-450 K/CMM] 163 K/CMM 77 K/CMM 161 K/CMM (08/19/18 5:52 PM) *LOW* (08/18/18 5:45 AM) (08/19/18 4:40 AM) Segs [45.0-75.0 %] 47.9 % 45.3 % 44.9 % (08/19/18 4:40 AM) (08/18/18 5:45 AM) *LOW* (08/16/18 11:46 PM) Lymphocytes [20.0-40.0 %] 40.1 % 44.0 % 44.2 % *HI* *HI* *HI* (08/19/18 4:40 AM) (08/18/18 5:45 AM) (08/16/18 11:46 PM) Monocytes [2.0-12.0 %] 8.8 % 6.3 % 7.6 % (08/19/18 4:40 AM) (08/18/18 5:45 AM) (08/16/18 11:46 PM) Eosinophils [0.0-4.0 %] 2.0 % 2.5 % 2.0 % (08/19/18 4:40 AM) (08/18/18 5:45 AM) (08/16/18 11:46 PM) Basophils [0.0-1.0 %] 1.2 % 1.9 % 1.3 % *HI* *HI* *HI* (08/19/18 4:40 AM) (08/18/18 5:45 AM) (08/16/18 11:46 PM) Neutrophils # [1.5-8.1 4.7 K/CMM 3.9 K/CMM 5.2 K/CMM K/CMM] (08/19/18 4:40 AM) (08/18/18 5:45 AM) (08/16/18 11:46 PM) Lymphocytes # [1.0-5.5 3.9 K/CMM 3.8 K/CMM 5.1 K/CMM K/CMM] (08/19/18 4:40 AM) (08/18/18 5:45 AM) (08/16/18 11:46 PM) Monocytes # [0.0-0.8 K/CMM] 0.9 K/CMM 0.6 K/CMM 0.9 K/CMM *HI* (08/18/18 5:45 AM) *HI* (08/19/18 4:40 AM) (08/16/18 11:46 PM) Eosinophils # [0.0-0.5 0.2 K/CMM 0.2 K/CMM 0.2 K/CMM K/CMM] (08/19/18 4:40 AM) (08/18/18 5:45 AM) (08/16/18 11:46 PM) Basophils # [0.0-0.2 K/CMM] 0.1 K/CMM 0.2 K/CMM 0.1 K/CMM (08/19/18 4:40 AM) (08/18/18 5:45 AM) (08/16/18 11:46 PM) RBC Morph Normal (08/16/18 3:35 PM) Plt Morph Normal (08/16/18 3:35 PM) PT [12.0-14.7 seconds] 13.9 seconds 12.6 seconds (08/19/18 4:40 AM) (08/16/18 3:35 PM) INR [0.85-1.17] 1.09 0.96 (08/19/18 4:40 AM) (08/16/18 3:35 PM) PTT [22.9-35.8 seconds] 31.0 seconds 32.0 seconds (08/19/18 4:40 AM) (08/16/18 3:35 PM) Microbiology Reports TEST:Culture: Stool STATUS:Order in Progress BODY SITE: SOURCE:Stool COLLECTED DATE/TIME:08/19/18 4:40 AMPRELIMINARY REPORTNormal Enteric Era Isolated No Salmonella Or Shigella Isolated Immunizations No data available for this section Procedures Procedure Date Related Diagnosis Body Site Status Selective catheter placement, vertebral 08/19/18 Completed artery, unilateral, with angiography of the ipsilateral vertebral circulation and all associated radiological supervision and interpretation, includes angiography of the cervicocerebral arch, when performed Cervical laminectomy Completed section Completed Resection Completed Shunt construction Completed Tonsillectomy Completed Social History Social History Type Response Alcohol Never Smoking Status Never smoker; Ready to change: No; Concerns about tobacco use in household: No; Exposure to Tobacco Smoke None; Cigarette Smoking Last 365 Days No; Reg Smoking Cessation Counseling No entered on: 08/16/18 Assessment and Plan Extracted from: Title: Ophthalmology Consult Note Author: Sivan Thomas MD Date: CONSULTATION OPHTHALMOLOGY PATIENT NAME: ARNOLD FLOYD MR #: [id number] ROOM: [place] [address] REQUESTING TEAM/ATTENDING: ED DATE OF CONSULT: 08/17/2018 CONSULTING ATTENDING: Kalani Jacobo MD CONSULTING RESIDENT: Sivan Laws MD REASON FOR CONSULT: left ptosis CHART REVIEWED: YES HISTORY OF PRESENT ILLNESS: 73 year old female with HTN, HLD, planum sphenoidal meningioma, right frontal craniotomy for meningioma s/p resection in 2010, hydrocephalus s/p craniectomy and GLASS BLOCK BENDER shunt, cr anioplasty in 2011 and POH of refractive error who presents on 08/16/2018 with left ptosis and slurred speech x 1 day. Upon evaluation, pt denies any vision changes, double vision, or peripheral vision loss. REVIEW OF SYSTEMS: CONSTITUTIONAL: No fever, weight changes. MUSCULOSKELETAL: No generalized pain. SKIN: No rash. EYES: As above. ENT: No rhinorrhea RESPIRATORY: No SOB. CARDIOVASCULAR: No chest pain. GASTROINTESTINAL: No nausea, vomiting, diarrhea. HEMATOPOETIC/LYMPHATIC: No bruising, LAD. GENITOURINARY: No change in UOP. NEUROLOGICAL: +slurred speech, No headache. PSYCHIATRIC: No behavioral change. ALLERGY/IMMUNE SYSTEM: No allergies. PAST OCULAR HISTORY: Per HPI PAST MEDICAL HISTORY: Per HPI PAST SURGICAL HISTORY: Per HPI SOCIAL HISTORY: Alcohol Details: Never Tobacco Details: Use: Never smoker. Ready to change: No. Household tobacco concerns: No. Tobacco smoke exposure: None. Did the Patient Smoke Cigarettes Anytime During the Last 365 Days? No. Cessation Counseling Provided? No. FAMILY HISTORY: No ocular disease Allergies: Adhesive Tape, PHENobarbital, aspirin(severe chest pain), erythromycin, penicillins(rash), cefepime, ciprofloxacin, Cortizone-10, phenobarbital(rash) MEDICATIONS: Scheduled Meds (4): 08/18/18 amLODIPine 5 mg PO Daily 08/17/18 clopidogrel (Plavix) 75 mg PO Daily 08/18/18 ramipril 5 mg PO Daily 08/18/18 rosuvastatin (Crestor) 20 mg PO Daily EYE MEDICATION: None. EXAMINATION: Neuro/MS: The patient is alert and oriented to person, place and time. The mental status is grossly normal. VISUAL ACUITY (WITHOUT CORRECTION): TESTED ON A NEAR CARD. Right eye: 20/40 Left eye: 20/25 COLOR VISION: Right: 14/14 Ishihara Left: 14/14 Ishihara EXTRAOCULAR MOTILITY: Right: Trace abduction deficit Left: Full CONFRONTATION VISUAL FIELD: Right: Decreased in all nielsen except superonasal Left: Full PUPILS: Right: 4 mm --> 2 mm +relative afferent pupillary defect noted. Left: 3 mm --> 2 mm with normal direct and consensual response. No relative afferent pupillary defect noted INTRAOCULAR PRESSURE: Symmetric and normal to palpation both eyes. Right eye 18 , left eye 21 using the Tonopen. EXTERNAL: Right: Within normal limits, MRD 3 mm Left: Within normal limits, MRD 1 mm ANTERIOR SEGMENT EXAM: LIDS/LASHES/LACRIMALS: Right:Within normal limits Left: Within normal limits CONJUNCTIVA/SCLERA: Right: White and quiet Left: White and quiet CORNEA: Right: Clear. Left: Clear ANTERIOR CHAMBER: Right: Formed and grossly clear Left: Formed and grossly clear IRIS: Right: Round and reactive Left: Round and reactive LENS: Right: Cataract Left: IOL DILATED FUNDUS EXAM: (Both eyes dilated with phenylephrine 2.5% and tropicamide 1%) Right: OPTIC NERVE: pale nerve C:D RATIO: 0.6 POSTERIOR SEGMENT: cotton wool spot inferior arcade, small intraretinal hemorrhage superior to disc; macula with RPE changes, attenuated vessels, periphery within normal limits Left: OPTIC NERVE: pink, healthy nerve C:D RATIO: 0.2 POSTERIOR SEGMENT: macula with RPE changes, vessels, periphery within normal limits IMAGING: None PROCEDURES PERFORMED: None DIAGNOSES/RECOMMENDATION: 1. Ptosis, left eye 2. 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 Cranial nerve palsy, right eye - may be explained by progression of tumor - recommend MRI brain and orbits with and without contrast. 3. Hypertensive retinopathy, right eye - flame hemorrhage seen on fundus exam - systolic BP in 180s per EMR - BP control 4. Optic neuropathy, right eye - right sided afferent pupillary defect, diffuse visual field constriction - likely chronic and related to frontal meningioma now s/p resection, however MRI orbits should be done to evaluate for spread of current tumor - recommend MRI brain and orbits with and without contrast. Please call if any changes develops. Thank you for your consult. 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 Kalani Jacobo at the [facility] upon discharge ( Located: [address] [place] [address], 18th floor, ) or i f patient has a [employer] Card/has pending application they can follow up at [facility] ([address] [address] Sivan Laws MD Ophthalmology PGY2 [facility]
--- OUTSIDE RECORDS SUMMARY | 2018-09-07 21:53 | XMS REPORT | Summary of Care ---
:1945 Author Organization [facility] Neurosurgery [facility] Address [address] [place] [address] [place] [address]- Encounter HQ Vish_[email or web address](FIN) [id number] Date(s): 08/16/18 - 08/17/[address] [place] [phone] Vital Signs No data available for this section Problem List Condition Effective Dates Status Health [...] 1Data migrated from [employer] on 01/23/15.2right [email or web address] Allergies, Adverse Reactions, Alerts Substance Reaction Severity [...] on 01/22/15. Originally documented as PHENOBARBITAL. Medications No data available for this section Results No data available for this section Immunizations No data available for this section Procedures Procedure Date Related Diagnosis Body Site Status Cervical laminectomy Completed section Completed Resection Completed Shunt construction Completed Tonsillectomy Completed Social History Social History Type Response Alcohol Never Smoking Status Never smoker; Ready to change: No; Concerns about tobacco use in household: No; Exposure to Tobacco Smoke None; Cigarette Smoking Last 365 Days No; Reg Smoking Cessation Counseling No entered on: 08/16/18 Assessment and Plan No data available for this section
--- OUTSIDE RECORDS SUMMARY | 2018-09-07 21:54 | XMS REPORT | CCD ---
:1945 Author Organization [facility] Care Team Providers Name Role Phone SarojarianaJaja Consulting Provider Unavailable Anny Mahan Consulting Provider Unavailable JOSUÉ Simon Consulting Provider Unavailable Molly Meehan Consulting Provider Unavailable Paty Anne Consulting Provider Unavailable Clarence Kim Consulting Provider Unavailable Jenn Toussaint Consulting Provider Unavailable Sharon Kimbrough Consulting Provider Unavailable June Mares Consulting Provider Sanchez Lima Consulting Provider Odell Menendez Consulting Provider Unavailable Hernán Magana Consulting Provider Unavailable Nolvia Treadwell Consulting Provider Unavailable Mando Hannon Consulting Provider Unavailable Sheela Medina Consulting Provider Unavailable Isabelle Lopez Consulting Provider Unavailable Fabiana Arreola Consulting Provider Unavailable Liz Whitlock Consulting Provider Unavailable Ronald Hernandes Consulting Provider Unavailable Isabel Moyer Consulting Provider Unavailable Dillon Engle Consulting Provider [id number] Farrell IV, Lanre E Consulting Provider Aydee Hook Consulting Provider Franci Rivers Consulting Provider Unavailable Yordan Leos Consulting Provider Unavailable Sary Jacome Consulting Provider Unavailable Elke Feliz Consulting Provider [phone] Chepe Knott Consulting Provider Unavailable Solange Rizvi Consulting Provider Unavailable Jessica Dotson Consulting Provider Mary Matias Consulting Provider Unavailable Nel Trejo Consulting Provider Unavailable Leoncio Singleton Consulting Provider Unavailable Ernesto Sheth Consulting Provider Janice Serrano Consulting Provider Santo Oropeza Consulting Provider Unavailable Ramos Fuentes Consulting Provider Selma Fay Consulting Provider Unavailable Chay Niño Consulting Provider Praveena Rizvi Consulting Provider Unavailable Dutch Castillo Consulting Provider Unavailable Rosalba Meléndez Consulting Provider Unavailable Yulissa Quintero Consulting Provider Unavailable Diamante Bunn Consulting Provider Unavailable Wale Becerra Consulting Provider [phone] Kasi Chavez Consulting Provider Unavailable Linnea Villaseñor Consulting Provider [phone] Navya Zamora Consulting Provider Unavailable Luther Vang Referring Provider Unavailable Linda Pace Consulting Provider Darcy Aleman Consulting Provider Mike Zeng Consulting Provider Unavailable Octavio Wu Consulting Provider Unavailable Molly Brown Consulting Provider Unavailable Estefania Demarco Consulting Provider Unavailable Lisandro Gonzales Consulting Provider Unavailable Elvis Dhillon Consulting Provider Unavailable Nila Navarro Consulting Provider Unavailable Mauricio Reyes Consulting Provider [phone] Renetta Garsia Consulting Provider Unavailable Sherice Carrington Consulting Provider Franci Ely Consulting Provider [phone] Laure Sahu Consulting Provider Rabia Worley Consulting Provider Unavailable Elisabeth Archer Consulting Provider Unavailable Isabel Gonzales Consulting Provider Unavailable Sharon Farley Consulting Provider Unavailable Allen Skaggs Consulting Provider Unavailable Vicky Urbina My Consulting Provider Allison Stratton Consulting Provider Unavailable Micha Medellin Consulting Provider Unavailable Ronal Lanza Consulting Provider [phone] Telma Villasenor Consulting Provider Unavailable Gideon Nur Consulting Provider Malia Clemons Consulting Provider Unavailable Jaswant Rizvi Consulting Provider Unavailable Bella Rizvi Consulting Provider [id number] Deb Bazzi Consulting Provider Unavailable Magnolia Holcomb Consulting Provider Valente Chawla Consulting Provider Unavailable Diya Soto Consulting Provider Unavailable Shasta Thompson Consulting Provider Sammy Katie Amanda Consulting Provider Kye Sami Consulting Provider Radha Tatum Consulting Provider Amanda Marin Consulting Provider Unavailable Handy Alyx Rubina Consulting Provider Jess Mercer Consulting Provider Unavailable Darcy Núñez Consulting Provider Unavailable Tera Burton Consulting Provider Unavailable Andre Tinsley Consulting Provider Unavailable Memo Adame Consulting Provider Prashant Calderón Consulting Provider Unavailable Alan Vela Consulting Provider Unavailable Ellyn Rangel Consulting Provider Unavailable SYSTEM, SYSTEM Consulting Provider Unavailable Arelis Mora Consulting Provider Unavailable Mercy Arita Consulting Provider Nabila Pope Consulting Provider Unavailable Chel Ochoa Consulting Provider Unavailable Bonnie Mathew Consulting Provider Juan J Clay Consulting Provider Unavailable Abel Bonner Consulting Provider Isaiah Mcnulty Consulting Provider Unavailable Manasa Turner Consulting Provider Unavailable Linnea Villaseñor Consulting Provider Unavailable Brigitte Parks Consulting Provider Unavailable Filippo Jolly Consulting Provider [phone] Maegan Buck Consulting Provider Unavailable Sylvia Fernandez Consulting Provider Unavailable Flora Roberson Consulting Provider Camden Joy Consulting Provider Unavailable Roopa Davis Consulting Provider [phone] Abril Barnett Consulting Provider Noreen Egan Consulting Provider Unavailable Belle Nesbitt Consulting Provider Unavailable Elizabeth Dominguez Consulting Provider Jimmy Da Silva Consulting Provider Unavailable Hayder Mccarthy Consulting Provider Unavailable Shirley Leos Consulting Provider [phone] Genet Thakkar Consulting Provider Omid Daniels Consulting Provider Unavailable Seth Anne Consulting Provider [phone] Katharine Stover Consulting Provider Unavailable Kolby Berumen I Consulting Provider [phone] David Jolanta Claudio Consulting Provider Carlos Becerra Consulting Provider Unavailable AbaCaroline earl Consulting Provider Unavailable Carolina Rajan Consulting Provider Unavailable Antonio Sofi Consulting Provider Unavailable Raiza Brennan Consulting Provider Unavailable PCP, No Patient Contact Consulting Provider Unavailable Kelvin Dorado Consulting Provider [phone] Chelsea Bunn Consulting Provider Unavailable Chel Schmidt Consulting Provider Jillian Yi Consulting Provider Unavailable Caio Arita Consulting Provider [phone] Erika Steve Consulting Provider [phone] Joseph Mahajan Consulting Provider Unavailable Bonnie Bean Consulting Provider Unavailable Luis Flynn (Bladimir) Gamaliel Consulting Provider [phone] Skyler Maldonado Consulting Provider Unavailable Cassia Cid Consulting Provider Unavailable Estuardo Rey Consulting Provider Unavailable Janice Henley Consulting Provider [phone] Anny Vazquez Consulting Provider Unavailable AlissaJuan Ramon lopez Consulting Provider Kasi Vang Consulting Provider Unavailable Antionette Rowland Consulting Provider Manasa Mcgarry Consulting Provider Unavailable Christie Lal Consulting Provider Unavailable Tracy Leon Consulting Provider Unavailable Sky Rizvi Consulting Provider Unavailable Jess Alicia Consulting Provider [phone] Lazaro Macias Consulting Provider [phone] Rosa Pablo Consulting Provider Unavailable Vivien Mars Consulting Provider Unavailable Penelope Dunbar Consulting Provider Unavailable Chel Stern Consulting Provider Unavailable Jessica Giordano Consulting Provider [phone] Natalie Bell Consulting Provider Unavailable Blas Rg Consulting Provider Keagan Khan Consulting Provider Gavikelseadory Vanessajosi Ada Consulting Provider Luis Hair Consulting Provider Artem Soto Consulting Provider Unavailable Alvin Strickland Consulting Provider Sadia Xochilt Consulting Provider Unavailable Otilio Stephens Consulting Provider Unavailable Mack Arellano Consulting Provider Unavailable Allergies, Adverse Reactions, Alerts Substance Reaction Status aspirin severe chest pain?? Active erythromycin ?? Active penicillins rash?? Active phenobarbital rash?? Active Silk Tape takes skin off?? Active Problem List Condition Effective Dates Status Altered mental status ?? Active Craniotomy ?? Active DM - Diabetes mellitus ?? Active HTN - Hypertension ?? Active Lethargic ?? Active Meningioma of brain ?? Active Visual disturbance ?? Active Medications Medication Instructions Start Date End Date Status Byetta 250 mcg, SUB-Q, BID, 01/23/2011 ?? Suspended Substitution Allowed, INJ propofol 10 mg/ml 1,000 mg, 100 mL, Rate: 01/24/2011 01/27/2011 Discontinued (titrate) 1,000 mg Titrate as directed, Route: IV, Total Volume: 100 ml, Start date: 01/24/11 20:56:00, Duration: 30 day, Stop date: 02/23/11 20:55:00, Replace Every: 12 hr magnesium sulfate 2 gm, 50 mL, Route: 01/23/2011 01/23/2011 Completed IVPB, Drug form: INJ, Q2H, Start date: 01/23/11 8:20:00, Duration: 2 doses or times, Stop date: 01/23/11 10:00:00 labetalol 10 mg, 2 mL, Route: IV, 01/24/2011 01/31/2011 Discontinued Drug form: INJ, Q15Min, PRN Hypertension, Start date: 01/24/11 22:36:00, Duration: 30 day, Stop date: 02/23/11 22:35:00 cephalexin monohydrate 500 500 mg, PO, TID, 01/23/2011 ?? Suspended mg oral tablet Substitution Allowed, CAP Levaquin 500 mg oral 1 tab, PO, Q24H, 10 tab, 01/23/2011 ?? Suspended tablet Substitution Allowed, TAB metFORmin 500 mg oral 500 mg, PO, TID, 01/23/2011 ?? Suspended tablet Substitution Allowed, TAB vancomycin 1 gm, Route: IVPB, Drug 01/24/2011 01/27/2011 Discontinued form: INJ, [id number], Start date: 01/24/11 9:00:00, Duration: 30 day, Stop date: 02/22/11 21:00:00 sodium phosphate 18 mmol, 6 mL, Route: 01/27/2011 01/27/2011 Ordered IV, ONCE, Start date: 01/27/11 3:30:00, Stop date: 01/27/11 3:30:00 Crestor 20 mg oral tablet 1 tab, PO, Daily, 30 01/23/2011 ?? Suspended tab, Substitution Allowed, TAB benzonatate 200 mg oral 1 cap, PO, TID, 30 cap, 01/23/2011 ?? Suspended capsule Substitution Allowed, CAP Dextrose 50% Syringe 6.25 gm, 12.5 mL, Route: 01/28/2011 01/31/2011 Discontinued IVP, Drug Form: INJ, PRN, PRN Abnormal Lab Result, Start date: 01/28/11 17:39:00, Duration: 30 day, Stop date: 02/27/11 17:38:00 Dextrose 50% Syringe 25 gm, 50 mL, Route: 01/28/2011 01/31/2011 Discontinued IVP, Drug Form: INJ, PRN, PRN Abnormal Lab Result, Start date: 01/28/11 17:39:00, Duration: 30 day, Stop date: 02/27/11 17:38:00 Dextrose 50% Syringe 12.5 gm, 25 mL, Route: 01/28/2011 01/31/2011 Discontinued IVP, Drug Form: INJ, PRN, PRN Abnormal Lab Result, Start date: 01/28/11 17:39:00, Duration: 30 day, Stop date: 02/27/11 17:38:00 insulin regular human 3 unit, 0.03 mL, Route: 01/28/2011 01/31/2011 Discontinued recombinant 100 units/mL SUB-Q, Drug form: SOLN, injectable solution PRN, PRN Abnormal Lab Result, Start date: 01/28/11 17:39:00, Duration: 30 day, Stop date: 02/27/11 17:38:00 insulin regular human 7 unit, 0.07 mL, Route: 01/28/2011 01/31/2011 Discontinued recombinant 100 units/mL SUB-Q, Drug form: SOLN, injectable solution PRN, PRN Abnormal Lab Result, Start date: 01/28/11 17:39:00, Duration: 30 day, Stop date: 02/27/11 17:38:00 insulin regular human 5 unit, 0.05 mL, Route: 01/28/2011 01/31/2011 Discontinued recombinant 100 units/mL SUB-Q, Drug form: SOLN, injectable solution PRN, PRN Abnormal Lab Result, Start date: 01/28/11 17:39:00, Duration: 30 day, Stop date: 02/27/11 17:38:00 atenolol 50 mg oral tablet 1 tab, PO, Daily, 30 01/23/2011 ?? Suspended tab, Substitution Allowed [place] Thyroid 120 mg oral 1 tab, PO, Daily, 30 01/23/2011 ?? Suspended tablet tab, Substitution Allowed, TAB insulin isophane-NPH 20 unit, 0.2 mL, Route: 01/29/2011 01/31/2011 Discontinued SUB-Q, Drug form: INJ, Q8H, Start date: 01/29/11 8:00:00, Stop date: 02/28/11 0:00:00 calcium chloride 1,000 mg, 10 mL, Route: 01/23/2011 01/23/2011 Completed IVPB, ONCE, Start date: 01/23/11 8:30:00, Stop date: 01/23/11 8:30:00 potassium chloride 20 mEq 20 mEq, PO, Daily, 01/23/2011 ?? Suspended oral tablet, extended Substitution Allowed, release TAB hydrALAZINE 10 mg, 0.5 mL, Route: 01/25/2011 01/31/2011 Discontinued IV, Drug form: INJ, Q30Min, PRN Hypertension, Start date: 01/25/11 0:14:00, Duration: 30 day, Stop date: 02/24/11 0:13:00 Lasix 40 mg oral tablet 80 mg, 2 tab, PO, Daily, 01/23/2011 ?? Suspended 30 tab, Substitution Allowed, TAB NS + KCL 20mEq/L 1000ml 1,000 mL, Rate: 60 01/23/2011 01/26/2011 Discontinued (Premix) 1,000 mL 1,000 mL ml/hr, Infuse over: 16.7 hr, Route: IV, Total Volume: 1,000, Start date: 01/23/11 5:21:00, Duration: 30 day, Stop date: 02/22/11 5:20:00 dexamethasone 10 mg, Route: IVP, Q6H, 01/26/2011 01/26/2011 Discontinued Start date: 01/26/11 12:00:00, Duration: 30 day, Stop date: 02/25/11 6:00:00 dexamethasone 356 mg, Route: IVP, Q6H, 01/26/2011 01/26/2011 Discontinued Start date: 01/26/11 12:00:00, Duration: 30 day, Stop date: 02/25/11 6:00:00 Keppra 100 mg/mL oral 500 mg, 5 mL, Route: NJ, 01/28/2011 01/31/2011 Discontinued solution Drug form: SOLN, Q12H, Start date: 01/28/11 21:00:00, Duration: 30 day, Stop date: 02/27/11 9:00:00 labetalol 200 mg, 1 tab, Route: 01/26/2011 01/31/2011 Discontinued PO, Drug form: TAB, Q8H, Start date: 01/26/11 16:00:00, Stop date: 02/25/11 8:00:00 ranitidine 15 mg/mL oral 150 mg, 10 mL, Route: 01/28/2011 01/31/2011 Discontinued syrup NJ, Drug form: SYRP, Q12H, Start date: 01/28/11 21:00:00, Duration: 30 day, Stop date: 02/27/11 9:00:00 dexamethasone 4 mg, 1 tab, Route: PO, 01/29/2011 01/31/2011 Discontinued Drug form: TAB, Q6H-02, Start date: 01/29/11 12:00:00, Stop date: 02/28/11 6:00:00 dexamethasone 10 mg, Route: IVP, Q4H, 01/26/2011 01/26/2011 Discontinued Start date: 01/26/11 12:00:00, Duration: 30 day, Stop date: 02/25/11 8:00:00 dexamethasone 6 mg, 1 tab, Route: PO, 01/26/2011 01/29/2011 Discontinued Drug form: TAB, Q4H, Start date: 01/26/11 16:00:00, Duration: 30 day, Stop date: 02/25/11 12:00:00 famotidine 20 mg oral 20 mg, 1 tab, Route: PO, 01/23/2011 01/24/2011 Discontinued tablet Drug form: TAB, Q12H, Start date: 01/23/11 21:00:00, Duration: 30 day, Stop date: 02/22/11 9:00:00 mannitol 75 gm, 375 mL, Route: 01/26/2011 01/26/2011 Completed IVPB, Drug form: INJ, ONCE, Start date: 01/26/11 10:00:00, Stop date: 01/26/11 10:00:00 heparin 5,000 unit, 1 mL, Route: 01/28/2011 01/31/2011 Discontinued SUB-Q, Drug form: INJ, Q8H, Start date: 01/28/11 0:00:00, Duration: 30 day, Stop date: 02/26/11 16:00:00 dexamethasone 10 mg, 1 mL, Route: IV, 01/25/2011 01/26/2011 Discontinued Drug form: INJ, Q6H, Start date: 01/25/11 0:00:00, Stop date: 02/23/11 18:00:00 docusate 100 mg, 1 cap, Route: 01/23/2011 01/31/2011 Discontinued PO, Drug form: CAP, BID, Start date: 01/23/11 9:00:00, Stop date: 02/21/11 17:00:00 propofol 10 mg/ml 1,000 mg, 100 mL, Rate: 01/26/2011 01/26/2011 Discontinued (titrate) 1,000 mg Titrate as directed, Route: IV, Total Volume: 100 ml, Start date: 01/26/11 15:51:00, Duration: 30 day, Stop date: 02/25/11 15:50:00, Replace Every: 24 hr heparin 5000 units/mL 5,000 unit, 1 mL, Route: 01/23/2011 01/24/2011 Discontinued injectable solution SUB-Q, Drug form: INJ, Q8H, Start date: 01/23/11 16:00:00, Duration: 30 day, Stop date: 02/22/11 8:00:00 chlorhexidine topical 15 ml, Route: S&SPIT, 01/24/2011 01/25/2011 Discontinued 0.12% liquid Q4H, Drug form: LIQ, Start date: 01/24/11 20:00:00, Duration: 30 day, Stop date: 02/23/11 16:00:00 levetiracetam 500 mg, Route: IV, Q12H, 01/24/2011 01/28/2011 Discontinued Start date: 01/24/11 21:00:00, Duration: 30 day, Stop date: 02/23/11 9:00:00 [place] 5/325 oral tablet 1 tab, Route: PO, Drug 01/30/2011 01/31/2011 Discontinued Form: TAB, Q4H, PRN Headache, Start date: 01/30/11 15:44:00, Duration: 30 day, Stop date: 03/01/11 15:43:00 acetaminophen 650 mg, 2 tab, Route: 01/23/2011 01/30/2011 Discontinued PO, Drug form: TAB, Q4H, PRN Pain/Fever, Start date: 01/23/11 5:22:00, Duration: 30 day, Stop date: 02/22/11 5:21:00 morphine Sulfate 2 mg, 1 mL, Route: IVP, 01/23/2011 01/26/2011 Discontinued Drug form: INJ, Q4H, PRN Pain Score 4-6, Start date: 01/23/11 5:22:00, Duration: 30 day, Stop date: 02/22/11 5:21:00, Hold for respiratory rate of 8 or less Dextrose 50% Syringe 12.5 gm, 25 mL, Route: 01/24/2011 01/28/2011 Discontinued IVP, Drug Form: INJ, PRN, PRN Abnormal Lab Result, Start date: 01/24/11 23:41:00, Duration: 30 day, Stop date: 02/23/11 23:40:00 Dextrose 50% Syringe 25 gm, 50 mL, Route: 01/24/2011 01/28/2011 Discontinued IVP, Drug Form: INJ, PRN, PRN Abnormal Lab Result, Start date: 01/24/11 23:41:00, Duration: 30 day, Stop date: 02/23/11 23:40:00 Dextrose 50% Syringe 6.25 gm, 12.5 mL, Route: 01/24/2011 01/28/2011 Discontinued IVP, Drug Form: INJ, PRN, PRN Abnormal Lab Result, Start date: 01/24/11 23:41:00, Duration: 30 day, Stop date: 02/23/11 23:40:00 Insulin regular 100 unit + 100 mL, Rate: Start at 01/24/2011 01/25/2011 Discontinued Sodium Chloride 0.9% 0.05 units/kg/hour-, (titrate) 100 mL Route: IVPB, Total Volume: 100, Duration: 30 day, Stop date: 02/23/11 23:41:00, Replace Every: 24 hr potassium phosphate 36 mmol, 12 mL, Route: 01/26/2011 01/26/2011 Completed IVPB, On Adm, Start date: 01/26/11 3:29:00, Duration: 1 doses or times, Stop date: 01/26/11 8:00:00 Insulin regular 100 unit + 99 mL, Rate: TITRATE, 01/24/2011 01/28/2011 Discontinued Sodium Chloride 0.9% IV 99 Route: IV, Total Volume: mL 100, Start date: 01/24/11 23:59:00, Duration: 30 day, Stop date: 02/23/11 23:58:00 insulin regular human 5 unit, 0.05 mL, Route: 01/23/2011 01/25/2011 Discontinued recombinant 100 units/mL SUB-Q, Drug form: SOLN, injectable solution PRN, PRN Abnormal Lab Result, Start date: 01/23/11 5:14:00, Duration: 30 day, Stop date: 02/22/11 5:13:00 insulin regular human 7 unit, 0.07 mL, Route: 01/23/2011 01/25/2011 Discontinued recombinant 100 units/mL SUB-Q, Drug form: SOLN, injectable solution PRN, PRN Abnormal Lab Result, Start date: 01/23/11 5:14:00, Duration: 30 day, Stop date: 02/22/11 5:13:00 Dextrose 50% Syringe 6.25 gm, 12.5 mL, Route: 01/23/2011 01/25/2011 Discontinued IVP, Drug Form: INJ, PRN, PRN Abnormal Lab Result, Start date: 01/23/11 5:14:00, Duration: 30 day, Stop date: 02/22/11 5:13:00 Dextrose 50% Syringe 12.5 gm, 25 mL, Route: 01/23/2011 01/25/2011 Discontinued IVP, Drug Form: INJ, PRN, PRN Abnormal Lab Result, Start date: 01/23/11 5:14:00, Duration: 30 day, Stop date: 02/22/11 5:13:00 insulin regular human 3 unit, 0.03 mL, Route: 01/23/2011 01/25/2011 Discontinued recombinant 100 units/mL SUB-Q, Drug form: SOLN, injectable solution PRN, PRN Abnormal Lab Result, Start date: 01/23/11 5:14:00, Duration: 30 day, Stop date: 02/22/11 5:13:00 Dextrose 50% Syringe 25 gm, 50 mL, Route: 01/23/2011 01/25/2011 Discontinued IVP, Drug Form: INJ, PRN, PRN Abnormal Lab Result, Start date: 01/23/11 5:14:00, Duration: 30 day, Stop date: 02/22/11 5:13:00 Saline Flush 0.9% 5 ml, Route: IVP, Drug 01/23/2011 01/23/2011 Discontinued Form: INJ, PRN, PRN Line Flush, Start date: 01/23/11 5:14:00, Duration: 30 day, Stop date: 02/22/11 5:13:00 bisacodyl 10 mg, 1 supp, Route: 01/23/2011 01/31/2011 Discontinued [place], Drug form: SUPP, Daily, PRN Constipation, Start date: 01/23/11 5:14:00, Duration: 30 day, Stop date: 02/22/11 5:13:00 acetaminophen 650 mg, 2 tab, Route: 01/23/2011 01/31/2011 Discontinued PO, Drug form: TAB, Q4H, PRN Pain/Fever, Start date: 01/23/11 5:14:00, Duration: 30 day, Stop date: 02/22/11 5:13:00 Senna 8.6 mg oral tablet 8.6 mg, 1 tab, Route: 01/23/2011 01/31/2011 Discontinued PO, Drug Form: TAB, Q12H, Start date: 01/23/11 9:00:00, Duration: 30 day, Stop date: 02/21/11 21:00:00 morphine Sulfate 2 mg, 1 mL, Route: IVP, 01/23/2011 01/31/2011 Discontinued Drug form: INJ, Q1H, PRN Pain Score 7-10, Start date: 01/23/11 5:14:00, Duration: 30 day, Stop date: 02/22/11 5:13:00 ondansetron 4 mg, 2 mL, Route: IVP, 01/23/2011 01/31/2011 Discontinued Drug form: INJ, Q8H, PRN Nausea & Vomiting, Start date: 01/23/11 5:14:00, Duration: 30 day, Stop date: 02/22/11 5:13:00 levetiracetam 500 mg, 1 tab, Route: 01/23/2011 01/24/2011 Discontinued PO, Drug form: TAB, Q12H, Start date: 01/23/11 9:00:00, Duration: 30 day, Stop date: 02/21/11 21:00:00 dexamethasone 4 mg, 1 tab, Route: PO, 01/23/2011 01/24/2011 Discontinued Drug form: TAB, Q6H, Start date: 01/23/11 6:00:00, Duration: 30 day, Stop date: 02/22/11 0:00:00 sodium phosphate 15 mmol, Route: IVPB, 01/25/2011 01/25/2011 Deleted PRN, PRN Abnormal Lab Result, Start date: 01/25/11 6:44:00, Duration: 30 day, Stop date: 02/24/11 6:43:00 magnesium sulfate 4 gm, 100 mL, Route: IVPB, Drug form: INJ, ONCE, Start date : 01/25/11 6:44:00, Duration: 1 doses or times, Stop date: 01/25/11 6:44:00, For Mg=1.5 - 1.7 mg/dL 01/25/2011 01/25/2011 Completed For Mg=1.5 - 1.7 mg/dL normal saline 0.9% IV 1,000 mL, Rate: 50 01/26/2011 01/30/2011 Discontinued 1,000 mL ml/hr, Infuse over: 20 hr, Route: IV, Total Volume: 1,000, Start date: 01/26/11 17:48:00, Duration: 30 day, Stop date: 02/25/11 17:47:00 mannitol 75 gm, 375 mL, Route: 01/26/2011 01/27/2011 Discontinued IVPB, Drug form: INJ, Q6H, Start date: 01/26/11 12:00:00, Duration: 30 day, Stop date: 02/25/11 6:00:00 heparin 5,000 unit, 1 mL, Route: 01/25/2011 01/26/2011 Discontinued SUB-Q, Drug form: INJ, Q8H, Start date: 01/25/11 16:00:00, Duration: 30 day, Stop date: 02/24/11 8:00:00 niCARdipine 40 mg in NS 40 mg, 200 mL, Rate: 01/24/2011 01/30/2011 Discontinued 200 ml IV 40 mg Titrate, Route: IV, Total Volume: 200 mL, Duration: 30 day, Stop date: 02/23/11 19:06:00, Replace Every: 24 hr Keppra 100 mg/mL oral 500 mg, 5 mL, NJ, Q12H, 01/31/2011 ?? Suspended solution 60 mL, Substitution Allowed, SOLN sodium phosphate 15 mmol, 5 mL, Route: 01/25/2011 01/25/2011 Ordered IV, ONCE, Start date: 01/25/11 8:20:00, Stop date: 01/25/11 8:20:00 mannitol 50 gm, Route: IVPB, 01/25/2011 01/25/2011 Completed ONCE, Start date: 01/25/11 17:50:00, Stop date: 01/25/11 17:50:00 docusate sodium 100 mg 100 mg, 1 cap, PO, BID, 01/31/2011 ?? Suspended oral capsule 60 cap, Substitution Allowed, CAP famotidine 20 mg, 2 mL, Route: IV, 01/24/2011 01/28/2011 Discontinued Drug form: INJ, Q12H, Start date: 01/24/11 21:00:00, Stop date: 02/23/11 9:00:00 dexamethasone 4 mg oral 4 mg, 1 tab, PO, Q6H-02, 01/31/2011 ?? Suspended tablet 60 tab, Substitution Allowed, TAB bisacodyl 10 mg rectal 10 mg, 1 supp, [place], 01/31/2011 ?? Suspended suppository Daily, PRN, 60 supp, Constipation, Substitution Allowed, SUPP [place] 5/325 oral tablet 1 tab, PO, Q4H, PRN, 60 01/31/2011 ?? Suspended tab, Headache, Substitution Allowed, Maintenance, TAB metFORmin 1000 mg oral 1,000 mg, 1 tab, Route: 01/28/2011 01/31/2011 Discontinued tablet PO, Drug form: TAB, BID, Start date: 01/28/11 17:00:00, Duration: 30 day, Stop date: 02/27/11 9:00:00 Vital Signs Most recent to oldest 1 2 3 [Reference Range]: Height 149.86 cm ? (01/23/2011 04:37:00) ?? Temperature Oral 98.5 DegF 97.8 DegF 98.1 DegF [96.4-99.1 DegF] (01/31/2011 07:46:00) ?? (01/31/2011 05:35:00) ?? (2010 03:28:00) ?? Systolic Blood Pressure 116 mmHg 148 mmHg 153 mmHg [90-140 mmHg] (01/31/2011 07:46:00) ?? *HI* *HI* (01/31/2011 06:21:00) ?? (01/31/2011 05:58:00) ?? Diastolic Blood Pressure 55 mmHg 58 mmHg 62 mmHg [60-90 mmHg] *LOW* *LOW* (01/31/2011 05:58:00) ?? (01/31/2011 07:46:00) ?? (01/31/2011 06:21:00) ?? Respiratory Rate [14-20 20 BRMIN 21 BRMIN 16 BRMIN BRMIN] (01/31/2011 07:46:00) ?? *HI* (01/31/2011 03:28:00) ?? (01/31/2011 05:35:00) ?? Peripheral Pulse Rate 67 bpm 65 bpm 64 bpm [60-100 bpm] (01/31/2011 07:46:00) ?? (01/31/2011 06:21:00) ?? (01/31/2011 05:58:00) ?? Weight 89.000 kg ? (01/23/2011 04:37:00) ?? Results BACTERIAL - SEROLOGY Most recent to [Reference Range]: 1 2 3 MRSA by PCR Negative 1 ? (01/23/2011 05:00:00) ?? 1Interpretive Data: INTERPRETATION: Negative......No MRSA DNA detected by PCR Positive......MRSA DNA detected by PCRASSAY LIMITATIONS:This is a screening test for colonization by MRSA. A positivetest result indicates the patient is colonized by MRSA, but does not necessarily mean that an infection is present or that treatment is necessary. Likewise, a negative test does not exclude colonization or infection. Patients should be evaluatedclinically for symptoms and signs of infection before making therapeutic decisions. Routine decolonization is discouraged and should only be considered forselect patients after consultation with an infectious diseases specialist.BEDSIDE GLUCOSE TESTING Most recent to 1 2 3 [Reference Range]: Gluc POC Lif[place]n [65-110 109 mg/dL 2 188 mg/dL 3 233 mg/dL 4 mg/dL] (01/31/2011 05:46:00) ?? *HI* *HI* (01/31/2011 00:49:00) ?? (01/30/2011 20:36:00) ?? Comment1 Notify RN/MD Notify RN/MD Notify RN/MD *NA* *NA* *NA* (01/31/2011 05:46:00) ?? (01/31/2011 00:49:00) ?? (01/30/2011 11:35:00) ?? 2Interpretive Data: Upper Reportable Limit: 200 mg/dL.3Interpretive Data: Upper Reportable Limit: 200 mg/dL.4Interpretive Data: Upper Reportable Limit: 200 mg/dL.URINALYSIS Most recent to [Reference Range]: 1 2 3 UA Turbidity [>Clear] Clear ? (01/23/2011 05:29:00) ?? UA Color [>Yellow] Yellow ? *NA* (01/23/2011 05:29:00) ?? UA pH [5.0-8.0] 5.0 ? (01/23/2011 05:29:00) ?? UA Spec Grav [<<=1.030] 1.010 ? (01/23/2011 05:29:00) ?? UA Glucose [>Negative mg/dL] 150 mg/dL ? *ABN* (01/23/2011 05:29:00) ?? UA Blood [>Negative] Negative ? (01/23/2011 05:29:00) ?? UA Ketones TR ? *NA* (01/23/2011 05:29:00) ?? UA Protein [>Negative mg/dL] Negative mg/dL ? (01/23/2011 05:29:00) ?? UA Urobilinogen [0.1-1.0 mg/dL] <=1.0 mg/dL ? *NA* (01/23/2011 05:29:00) ?? UA Bili [>Negative] Negative ? *NA* (01/23/2011 05:29:00) ?? UA Leuk Est [>Negative] Negative ? (01/23/2011 05:29:00) ?? UA Nitrite [>Negative] Negative ? (01/23/2011 05:29:00) ?? UA WBC [0-5 /HPF] <1 /HPF ? (01/23/2011 05:29:00) ?? UA RBC [0-2 /HPF] <1 /HPF ? (01/23/2011 05:29:00) ?? UA Sq Epi [>Few /LPF] Occasional /LPF ? *NA* (01/23/2011 05:29:00) ?? UA Mucus [>None Seen /LPF] Few /LPF ? *NA* (01/23/2011 05:29:00) ?? BLOOD BANK RESULTS Most recent to oldest [Reference 1 2 3 Range]: ABO/Rh O NEG O NEG ?? *Unknown* *Unknown* (01/26/2011 09:00:00) ?? (01/24/2011 03:15:00) ?? Antibody Scrn Negative Negative ?? (01/26/2011 09:00:00) ?? (01/24/2011 03:15:00) ?? Platelet product Product available ? (01/24/2011 03:15:00) ?? RBC product Product available ? (01/24/2011 03:15:00) ?? CHEMISTRY Most recent to oldest 1 2 3 [Reference Range]: Sodium Lvl [135-145 mEq/L] 138 mEq/L 144 mEq/L 152 mEq/L (01/31/2011 03:36:00) ?? (01/29/2011 10:02:00) ?? *HI* (01/28/2011 01:30:00) ?? Potassium Lvl [3.5-5.1 3.9 mEq/L 4.0 mEq/L 3.2 mEq/L mEq/L] (01/31/2011 03:36:00) ?? (01/29/2011 10:02:00) ?? *LOW* (01/28/2011 01:30:00) ?? Chloride Lvl [95-109 100 mEq/L 109 mEq/L 116 mEq/L mEq/L] (01/31/2011 03:36:00) ?? (01/29/2011 10:02:00) ?? *HI* (01/28/2011 01:30:00) ?? CO2 [24-32 mEq/L] 24 mEq/L 24 mEq/L 25 mEq/L (01/31/2011 03:36:00) ?? (01/29/2011 10:02:00) ?? (01/28/2011 01:30:00) ?? AGAP [10.0-20.0 mEq/L] 17.9 mEq/L 15.0 mEq/L 14.2 mEq/L (01/31/2011 03:36:00) ?? (01/29/2011 10:02:00) ?? (01/28/2011 01:30:00) ?? Creatinine Lvl [0.5-1.4 0.7 mg/dL 0.8 mg/dL 0.7 mg/dL mg/dL] (01/31/2011 03:36:00) ?? (01/29/2011 10:02:00) ?? (01/28/2011 01:30: 00) ?? BUN [7-22 mg/dL] 17 mg/dL 23 mg/dL 21 mg/dL (01/31/2011 03:36:00) ?? *HI* (01/28/2011 01:30:00) ?? (01/29/2011 10:02:00) ?? Glucose Lvl 100 mg/dL 5 232 mg/dL 6 57 mg/dL 7 *NA* *NA* *NA* (01/31/2011 03:36:00) ?? (01/29/2011 10:02:00) ?? (01/28/2011 01:30:00) ?? Albumin Lvl [3.5-5.0 g/dL] 2.7 g/dL ? *LOW* (01/29/2011 10:02:00) ?? Calcium Lvl [8.5-10.5 7.7 mg/dL 7.8 mg/dL 7.5 mg/dL mg/dL] *LOW* *LOW* *LOW* (01/31/2011 03:36:00) ?? (01/29/2011 10:02:00) ?? (01/28/2011 01:30:00) ?? Phosphorus [2.5-4.5 mg/dL] 2.9 mg/dL 3.7 mg/dL 3.2 mg/dL (01/31/2011 03:36:00) ?? (01/29/2011 10:02:00) ?? (01/28/2011 01:30:00) ?? Magnesium Lvl [1.8-2.4 1.9 mg/dL 2.4 mg/dL 2.2 mg/dL mg/dL] (01/31/2011 03:36:00) ?? (01/29/2011 10:02:00) ?? (01/28/2011 01:30: 00) ?? Lactic Acid Lvl [0.5-2.2 2.4 mMol/L ? mMol/L] *HI* (01/24/2011 19:16:00) ?? Osmolality [280-300 317 mOsm/kg 305 mOsm/kg 306 mOsm/kg mOsm/kg] *HI* *HI* *HI* (01/27/2011 04:07:00) ?? (01/27/2011 00:14:00) ?? (01/26/2011 15:09:00) ?? Total CK [12-191 U/L] 256 U/L 219 U/L 34 U/L *HI* *HI* (01/24/2011 15:01:00) ?? (01/25/2011 07:56:00) ?? (01/25/2011 00:15:00) ?? CK MB [0.5-3.6 ng/mL] 1.1 ng/mL 1.5 ng/mL 1.2 ng/mL (01/25/2011 07:56:00) ?? (01/25/2011 00:15:00) ?? (01/23/2011 11:30:00) ?? CK MB Index [0.0-2.5] 0.4 0.7 1.2 (01/25/2011 07:56:00) ?? (01/25/2011 00:15:00) ?? (01/23/2011 11:30:00) ?? Troponin-T [0.000-0.100 <0.010 ng/mL <0.010 ng/mL <0.010 ng/mL ng/mL] (01/25/2011 07:56:00) ?? (01/25/2011 00:15:00) ?? (01/24/2011 15:01: 00) ?? Troponin-I [0.00-0.40 <0.02 ng/mL ? ng/mL] (01/23/2011 11:30:00) ?? Myoglobin [25-72 ng/mL] 141 ng/mL 60 ng/mL ?? *HI* (01/24/2011 15:01:00) ?? (01/25/2011 07:56:00) ?? Hgb A1C 8.7 % 8 ? *NA* (01/23/2011 11:30:00) ?? Ca Ion mgdL [4.65-5.20 4.36 mg/dL 4.20 mg/dL 4.24 mg/dL mg/dL] *LOW* *LOW* *LOW* (01/31/2011 03:36:00) ?? (01/29/2011 10:02:00) ?? (01/28/2011 01:30:00) ?? Ca Ion [1.16-1.30 mMol/L] 1.09 mMol/L 1.05 mMol/L 1.06 mMol/L *LOW* *LOW* *LOW* (01/31/2011 03:36:00) ?? (01/29/2011 10:02:00) ?? (01/28/2011 01:30:00) ?? Ca Norm [1.16-1.30 mMol/L] 1.13 mMol/L 1.06 mMol/L 1.09 mMol/L *LOW* *LOW* *LOW* (01/31/2011 03:36:00) ?? (01/29/2011 10:02:00) ?? (01/28/2011 01:30:00) ?? Ca Norm mgdL [4.65-5.20 4.52 mg/dL 4.24 mg/dL 4.36 mg/dL mg/dL] *LOW* *LOW* *LOW* (01/31/2011 03:36:00) ?? (01/29/2011 10:02:00) ?? (01/28/2011 01:30:00) ?? POC A Hct [36.0-48.0 %] 34.0 % 36.0 % 41.0 % *LOW* (01/26/2011 12:57:00) ?? (01/26/2011 12:01:00) ?? (01/26/2011 13:43:00) ?? POC A Ca Ion [1.16-1.30 1.17 mMol/L 1.22 mMol/L 1.05 mMol/L mMol/L] (01/26/2011 13:43:00) ?? (01/26/2011 12:57:00) ?? *LOW* (01/26/2011 12:01:00) ?? POC A K [3.5-5.1 mEq/L] 3.6 mEq/L 3.6 mEq/L 3.6 mEq/L (01/26/2011 13:43:00) ?? (01/26/2011 12:57:00) ?? (01/26/2011 12:01:00) ?? POC A Source ART ART ART *NA* *NA* *NA* (01/27/2011 04:07:00) ?? (01/26/2011 13:43:00) ?? (01/26/2011 12:57:00) ?? POC A Temp 37.0 DegC 37.0 DegC 37.0 DegC *NA* *NA* *NA* (01/27/2011 04:07:00) ?? (01/26/2011 13:43:00) ?? (01/26/2011 12:57:00) ?? POC A pH [7.35-7.45] 7.56 7.40 7.42 *HI* (01/26/2011 13:43:00) ?? (01/26/2011 12:57:00) ?? (01/27/2011 04:07:00) ?? POC A PCO2 [35-45 mmHg] 28 mmHg 40 mmHg 38 mmHg *CRIT* (01/26/2011 13:43:00) ?? (01/26/2011 12:57:00) ?? (01/27/2011 04:07:00) ?? POC A PO2 [80-100 mmHg] 150 mmHg 80 mmHg 79 mmHg *HI* (01/26/2011 13:43:00) ?? *LOW* (01/27/2011 04:07:00) ?? (01/26/2011 12:57:00) ?? POC A HCO3 [22-26 mMol/L] 25 mMol/L 25 mMol/L 25 mMol/L (01/27/2011 04:07:00) ?? (01/26/2011 13:43:00) ?? (01/26/2011 12:57:00) ?? POC A BE [-2-2 mMol/L] 4 mMol/L 0 mMol/L 0 mMol/L *HI* (01/26/2011 13:43:00) ?? (01/26/2011 12:57:00) ?? (01/27/2011 04:07:00) ?? POC A O2 Sat [95.0-100.0 100.0 % 96.0 % 96.0 % %] (01/27/2011 04:07:00) ?? (01/26/2011 13:43:00) ?? (01/26/2011 12:57:00) ? ? POC A Glu [65-110 mg/dL] 108 mg/dL 113 mg/dL 107 mg/dL (01/26/2011 13:43:00) ?? *HI* (01/26/2011 12:01:00) ?? (01/26/2011 12:57:00) ?? POC A LA [0.5-2.2 mMol/L] 0.8 mMol/L 0.8 mMol/L 0.8 mMol/L (01/26/2011 13:43:00) ?? (01/26/2011 12:57:00) ?? (01/26/2011 12:01:00) ?? POC A Na [135-145 mEq/L] 140 mEq/L 138 mEq/L 140 mEq/L (01/26/2011 13:43:00) ?? (01/26/2011 12:57:00) ?? (01/26/2011 12:01:00) ?? 5Interpretive Data: Reference Ranges : 0 - 7 days : 41 - 90 mg/dL7 days - 150 yrs : 70 - 99 mg/dL (fasting), based on the clinical recommendations of the [place] [employer].6Interpretive Data: Reference Ranges : 0 - 7 days : 41 - 90 mg/dL7 days - 150 yrs : 70 - 99 mg/dL (fasting), based on the clinical recommendations of the [place] [employer].7Interpretive Data : Reference Ranges : 0 - 7 days : 41 - 90 mg/dL7 days - 150 yrs : 70 - 99 mg/dL (fasting), based on the clinical recommendations of the [place] [employer].8Interpretive Data: HbA1C% eAG(mg/dL) Interpretation 6.0 126Very good control 6.5 140 Very good control 7.0 154 Good Control 7.5 169 Good Control 8.0 183 Marginal Control, take action to lower 8.5 197 Marginal Control, take action to lower 9.0 212 Poor Control, take action to lower 9.5 226 Poor Control, takeaction to lower10.0 240 Poor Control, take action to lowerHEMATOLOGY Most recent to oldest 1 2 3 [Reference Range]: WBC [3.7-10.4 K/CMM] 23.0 K/CMM 19.6 K/CMM 20.1 K/CMM *HI* *HI* *HI* (01/31/2011 03:36:00) ?? (01/29/2011 10:02:00) ?? (01/28/2011 01:30:00) ?? RBC [4.20-5.40 M/CMM] 3.93 M/CMM 3.61 M/CMM 3.45 M/CMM *LOW* *LOW* *LOW* (01/31/2011 03:36:00) ?? (01/29/2011 10:02:00) ?? (01/28/2011 01:30:00) ?? Hgb [12.0-16.0 g/dL] 12.2 g/dL 11.4 g/dL 10.7 g/dL (01/31/2011 03:36:00) ?? *LOW* *LOW* (01/29/2011 10:02:00) ?? (01/28/2011 01:30:00) ?? Hct [36.0-48.0 %] 37.3 % 33.9 % 32.3 % (01/31/2011 03:36:00) ?? *LOW* *LOW* (01/29/2011 10:02:00) ?? (01/28/2011 01:30:00) ?? MCV [81.0-99.0 fL] 94.8 fL 94.0 fL 93.5 fL (01/31/2011 03:36:00) ?? (01/29/2011 10:02:00) ?? (01/28/2011 01:30:00) ?? MCH [27.0-31.0 pg] 31.0 pg 31.5 pg 31.1 pg (01/31/2011 03:36:00) ?? *HI* *HI* (01/29/2011 10:02:00) ?? (01/28/2011 01:30:00) ?? MCHC [32.0-36.0 g/dL] 32.7 g/dL 33.6 g/dL 33.3 g/dL (01/31/2011 03:36:00) ?? (01/29/2011 10:02:00) ?? (01/28/2011 01:30:00) ?? RDW [11.5-14.5 %] 15.3 % 16.1 % 16.0 % *HI* *HI* *HI* (01/31/2011 03:36:00) ?? (01/29/2011 10:02:00) ?? (01/28/2011 01:30:00) ?? Platelet [133-450 K/CMM] 166 K/CMM 178 K/CMM 144 K/CMM (01/31/2011 03:36:00) ?? (01/29/2011 10:02:00) ?? (01/28/2011 01:30:00) ?? MPV [7.4-10.4 fL] 10.1 fL 9.4 fL 10.4 fL (01/31/2011 03:36:00) ?? (01/29/2011 10:02:00) ?? (01/28/2011 01:30:00) ?? Segs [45.0-75.0 %] 79.0 % 81.0 % 89.3 % *HI* *HI* *HI* (01/31/2011 03:36:00) ?? (01/29/2011 10:02:00) ?? (01/28/2011 01:30:00) ?? Bands [0.0-11.0 %] 2.0 % 2.0 % 2.0 % (01/31/2011 03:36:00) ?? (01/29/2011 10:02:00) ?? (01/24/2011 19:16:00) ?? Lymphocytes [20.0-40.0 %] 7.0 % 9.0 % 6.6 % *LOW* *LOW* *LOW* (01/31/2011 03:36:00) ?? (01/29/2011 10:02:00) ?? (01/28/2011 01:30:00) ?? Atypical Lymphs [<<=0.0 %] 0.0 % 0.0 % ?? (01/31/2011 03:36:00) ?? (01/29/2011 10:02:00) ?? Monocytes [2.0-12.0 %] 6.0 % 5.0 % 4.1 % (01/31/2011 03:36:00) ?? (01/29/2011 10:02:00) ?? (01/28/2011 01:30:00) ?? Eosinophils [0.0-4.0 %] 0.0 % 0.0 % 0.0 % (01/28/2011 01:30:00) ?? (01/27/2011 00:14:00) ?? (01/26/2011 15:09:00) ?? Basophils [0.0-1.0 %] 0.0 % 0.2 % 0.1 % (01/28/2011 01:30:00) ?? (01/27/2011 00:14:00) ?? (01/26/2011 15:09:00) ?? Metamyelocytes [0.0-1.0 %] 2.0 % 2.0 % ?? *HI* *HI* (01/31/2011 03:36:00) ?? (01/29/2011 10:02:00) ?? Myelocytes [<<=0.0 %] 3.0 % 1.0 % ?? *HI* *HI* (01/31/2011 03:36:00) ?? (01/29/2011 10:02:00) ?? Promyelocytes [<<=0.0 %] 1.0 % ? *HI* (01/31/2011 03:36:00) ?? Segs-Bands # [1.5-8.1 18.6 K/CMM 16.3 K/CMM 18.0 K/CMM K/CMM] *HI* *HI* *HI* (01/31/2011 03:36:00) ?? (01/29/2011 10:02:00) ?? (01/28/2011 01:30:00) ?? Lymphocytes # [1.0-5.5 1.6 K/CMM 1.8 K/CMM 1.3 K/CMM K/CMM] (01/31/2011 03:36:00) ?? (01/29/2011 10:02:00) ?? (01/28/2011 01:30: 00) ?? Monocytes # [0.0-0.8 K/CMM] 1.4 K/CMM 1.0 K/CMM 0.8 K/CMM *HI* *HI* (01/28/2011 01:30:00) ?? (01/31/2011 03:36:00) ?? (01/29/2011 10:02:00) ?? Eosinophils # [0.0-0.5 0.0 K/CMM 0.0 K/CMM 0.0 K/CMM K/CMM] (01/28/2011 01:30:00) ?? (01/27/2011 00:14:00) ?? (01/26/2011 15:09: 00) ?? Basophils # [0.0-0.2 K/CMM] 0.0 K/CMM 0.0 K/CMM 0.0 K/CMM (01/28/2011 01:30:00) ?? (01/27/2011 00:14:00) ?? (01/26/2011 15:09:00) ?? NRBC 1 /100WB ? *NA* (01/29/2011 10:02:00) ?? Polychrom [>None Seen] Slight Slight ?? (01/31/2011 03:36:00) ?? (01/29/2011 10:02:00) ?? Hypochrom [>None Seen] Slight ? (01/31/2011 03:36:00) ?? Target Cell [>None Seen] Slight ? *ABN* (01/24/2011 19:16:00) ?? Rouleaux [>None Seen] Present ? *ABN* (01/31/2011 03:36:00) ?? Plt Morph Normal ? (01/24/2011 19:16:00) ?? Large Plt [>None Seen] Slight Slight ?? *ABN* *ABN* (01/31/2011 03:36:00) ?? (01/29/2011 10:02:00) ?? PT [12.0-14.7 seconds] 15.8 seconds 15.4 seconds 15.6 seconds *HI* *HI* *HI* (01/27/2011 00:14:00) ?? (01/26/2011 15:09:00) ?? (01/26/2011 00:15:00) ?? INR [0.85-1.17] 1.26 9 1.22 10 1.24 11 *HI* *HI* *HI* (01/27/2011 00:14:00) ?? (01/26/2011 15:09:00) ?? (01/26/2011 00:15:00) ?? PTT [22.9-35.8 seconds] 25.2 seconds 12 29.8 seconds 13 28.2 seconds 14 (01/27/2011 00:14:00) ?? (01/26/2011 15:09:00) ?? (01/26/2011 00:15:00) ?? 9Interpretive Data: RECOMMENDED RANGES FOR PROTIME INR: 2.0-3.0 for most medical and surgical thromboembolic states. 2.5-3.5 for artificial heart valves and recurrent embolism.INR SHOULD BE USED ONLY FOR PATIENTS ON STABLE ANTICOAGULANT THERAPY.10Interpretive Data: RECOMMENDED RANGES FOR PROTIME INR: 2.0-3.0 for most medical and surgical thromboembolic states. 2.5-3.5 for artificial heart valves and recurrent embolism.INR SHOULD BE USED ONLY FOR PATIENTS ON STABLE ANTICOAGULANT THERAPY.11Interpretive Data: RECOMMENDED RANGES FOR PROTIME INR: 2.0-3.0 for most medical and surgical thromboembolic states. 2.5-3.5 for artificial heart valves and recurrent embolism.INR SHOULD BE USED ONLY FOR PATIENTS ON STABLE ANTICOAGULANT THERAPY.12Interpretive Data: Heparin Therapeutic Range: 57 - 92 [id number] Data: Heparin Therapeutic Range: 57 - 92 [id number] Data: Heparin Therapeutic Range: 57 - 92 Seconds Microbiology Reports PROCEDURE:Culture: Resistant Acinetobacter Screen STATUS: Auth (Verified) BODY SITE: ?? COLLECTED DATE/TIME: 01/23/2011 05:00:00 SOURCE: Throat FREE TEXT SOURCE: swab FINAL REPORTS Final ReportNo Acinetobacter IsolatedPRELIMINARY REPORTS Preliminary ReportCulture In Progress
--- OUTSIDE RECORDS SUMMARY | 2018-09-07 21:55 | XMS REPORT | CCD ---
:1945 Author Organization [facility] Care Team Providers Name Role Phone Jaja Worrell Consulting Provider Unavailable Anny Mahan Consulting Provider [...] Consulting Provider Unavailable Dillon Engle Consulting Provider [phone] Farrell IV, Lanre E Consulting Provider Aydee Hook Consulting Provider Brigitte Acevedo Consulting Provider Franci Rivers Consulting Provider Unavailable Yordan Leos Consulting Provider Unavailable Sary Jacome Consulting Provider Unavailable Elke Feliz Consulting Provider [phone] Chepe Knott Consulting Provider Unavailable Solange Rizvi [...] Consulting Provider Unavailable Wale Becerra Consulting Provider [phone] Kasi Chavez Consulting Provider Unavailable Linnea Villaseñor Consulting Provider [phone] Navya Zamora Consulting Provider Unavailable Luther Vang Referring Provider Unavailable Linda Pace Consulting Provider Dacry Aleman Consulting Provider Mike Zeng Consulting Provider Unavailable Octavio Wu Consulting Provider Unavailable Molly Brown Consulting Provider Unavailable Estefania Demarco Consulting Provider Unavailable Lisandro Gonzales Consulting Provider Unavailable Elvis Dhillon Consulting Provider Unavailable Nila Navarro Consulting Provider Unavailable Mauricio Reyes Consulting Provider [phone] Renetta Garsia Consulting Provider Unavailable Sherice Carrington Consulting Provider Franci Ely Consulting Provider [phone] Laure Sahu Consulting Provider Rabia Worley Consulting Provider Unavailable Elisabeth Archer Consulting Provider Unavailable Isabel Gonzales Consulting Provider Unavailable Sharon Farley Consulting Provider Unavailable Allen Skaggs Consulting Provider Unavailable Carlitos, Vicky Phi My Consulting Provider Allison Stratton Consulting Provider Unavailable Micha Medellin Consulting Provider Unavailable Ronal Lanza Consulting Provider [phone] Telma Villasenor Consulting Provider Unavailable Natasha Cheema S Consulting Provider [phone] Gideon Nur Consulting Provider Malia Clemons Consulting Provider Unavailable Jaswant Rizvi Consulting Provider Unavailable Bella Rizvi Consulting Provider [phone] Deb Bazzi Consulting Provider Unavailable Magnolia Holcomb Consulting Provider Valente Chawla Consulting Provider Unavailable Diya Soto Consulting Provider Unavailable Donna Pauldavey Consulting Provider Katie Christianson Consulting Provider Sami Fishman Consulting Provider Radha Tatum Consulting Provider Amanda Marin Consulting Provider Unavailable Alyx Murrell Consulting Provider Jess Mercer Consulting Provider Unavailable [...] Consulting Provider Unavailable Filippo Jolly Consulting Provider [phone] Maegan Buck Consulting Provider Unavailable Sylvia Fernandez Consulting Provider Unavailable Flora Roberson Consulting Provider Camden Joy Consulting Provider Unavailable Roopa Davis Consulting Provider [phone] Abril Barnett Consulting Provider Noreen Egan Consulting Provider Unavailable Belle Nesbitt Consulting Provider Unavailable Elizabeth Dominguez Consulting Provider Jimmy Da Silva Consulting Provider Unavailable Hayder Mccarthy Consulting Provider Unavailable Shilrey Leos Consulting Provider [phone] Genet Thakkar Consulting Provider Omid Daniels Consulting Provider Unavailable Seth Anne Consulting Provider [phone] Katharine Stover Consulting Provider Unavailable Kolby Berumen I Consulting Provider [phone] Jolanta Hernandez Consulting Provider Carlos Becerra Consulting Provider Unavailable AbaCaroline earl Consulting Provider Unavailable Carolina Rajan Consulting Provider Unavailable Sofi Alvarez Consulting Provider Unavailable Raiza Brennan Consulting Provider Unavailable PCP, No Patient Contact Consulting Provider Unavailable Kelvin Dorado Consulting Provider [phone] Chelsea Bunn Consulting Provider Unavailable Chel Schmidt Consulting Provider Jillian Yi Consulting Provider Unavailable Caio Arita Consulting Provider [phone] Erika Steve Consulting Provider [phone] Joseph Mahajan Consulting Provider Unavailable Bonnie Bean Consulting Provider Unavailable Luis Flynn) Gamaliel Consulting Provider [phone] Skyler Maldonado Consulting Provider Unavailable Cassia Cid Consulting Provider Unavailable Estuardo Rey Consulting Provider Unavailable Janice Henley Consulting Provider [phone] Anny Vazquez Consulting Provider Unavailable Juan Ramon Maxwell Consulting Provider Kasi Vang Consulting Provider Unavailable Antionette Rowland Consulting Provider Manasa Mcgarry Consulting Provider Unavailable Christie Lal Consulting Provider Unavailable Tracy Leon Consulting Provider Unavailable Sky Rizvi Consulting Provider Unavailable Jess Alicia Consulting Provider [phone] Lazaro Macias Consulting Provider [phone] Rosa Pablo Consulting Provider Unavailable Vivien Mars Consulting Provider Unavailable Penelope Dunbar Consulting Provider Unavailable Leena Chel A Consulting Provider Unavailable Jessica Giordano Consulting Provider [phone] VladimiritzelNatalie Consulting Provider Unavailable Blas Rg Consulting Provider Keagan Khan Consulting Provider Monico Lanza Consulting Provider Luis Hair Consulting Provider Artem Soto Consulting Provider Unavailable Alvin Strickland Consulting Provider Xochilt Mccullough Consulting Provider Unavailable Otilio Stephens Consulting Provider [...] IVPB, Drug 01/24/2011 01/27/2011 Discontinued form: INJ, [id number], Start date: 01/24/11 9:00:00, Duration: 30 day, [...] 30 01/23/2011 ?? Suspended tab, Substitution Allowed [place] Thyroid 120 mg oral 1 tab, PO, [...] Duration: 30 day, Stop date: 02/23/11 9:00:00 [place] 5/325 oral tablet 1 tab, Route: PO, [...] mg, 1 supp, Route: 01/23/2011 01/31/2011 Discontinued [place], Drug form: SUPP, Daily, PRN Constipation, Start [...] 10 mg rectal 10 mg, 1 supp, [place], 01/31/2011 ?? Suspended suppository Daily, PRN, 60 supp, Constipation, Substitution Allowed, SUPP [place] 5/325 oral tablet 1 tab, PO, Q4H, [...] Reportable Limit: 200 mg/dL.URINALYSIS Most recent to oldest [Reference Range]: 1 2 3 UA Turbidity [...] based on the clinical recommendations of the [place] [employer].6Interpretive Data: Reference Ranges : 0 - 7 days : 41 - 90 mg/dL7 days - 150 yrs : 70 - 99 mg/dL (fasting), based on the clinical recommendations of the [place] [employer].7Interpretive Data : Reference Ranges : 0 - 7 days : 41 - 90 mg/dL7 days - 150 yrs : 70 - 99 mg/dL (fasting), based on the clinical recommendations of the [place] [employer].8Interpretive Data: HbA1C% eAG(mg/dL) Interpretation 6.0 [...] Data: Heparin Therapeutic Range: 57 - 92 [id number] Data: Heparin Therapeutic Range: 57 - 92 [id number] Data: Heparin Therapeutic Range: 57 - 92 Seconds Microbiology Reports PROCEDURE:Culture: Resistant Acinetobacter Screen STATUS: Auth (Verified) BODY SITE: ?? COLLECTED DATE/TIME: 01/23/2011 05:00:00 SOURCE: Throat FREE TEXT SOURCE: swab FINAL REPORTS Final ReportNo Acinetobacter IsolatedPRELIMINARY REPORTS Preliminary ReportCulture In Progress
--- OUTSIDE RECORDS SUMMARY | 2018-09-07 21:57 | XMS REPORT | CCD ---
:1945 Author Organization [facility] Care Team Providers Name Role Phone JOSUÉ Simon Consulting Provider Unavailable Hattie Marin Consulting Provider Unavailable Moise Morelos Consulting Provider Unavailable Sharon Kimbrough Consulting Provider Unavailable Alexandre Skaggs Consulting Provider Unavailable June Mares Consulting Provider Hétcor Craig Consulting Provider Unavailable Katia Borrego Consulting Provider Unavailable Zonia Chaves Consulting Provider Unavailable Ronald Hernandes Consulting Provider Unavailable Antionette Soto Consulting Provider [phone] Camden Dunbar Consulting Provider Keagan Carbajal Consulting Provider Unavailable Brigitte Acevedo Consulting Provider Lauren Vasquez Consulting Provider Unavailable Dutch Hdz Consulting Provider Unavailable Sachi Wei Consulting Provider Unavailable Tracie Henry Consulting Provider Jessica Dotson Consulting Provider Vasyl Pickett Consulting Provider Alesha Demarco Consulting Provider Unavailable Danni Lopez Consulting Provider Unavailable Janice Serrano Consulting Provider Mahendra Ng Consulting Provider Unavailable Leoncio Fitch Consulting Provider Unavailable Deepika Patel Consulting Provider Unavailable Breanna Randle Consulting Provider Unavailable Addis Cox Consulting Provider Unavailable Aissatou Bowman Consulting Provider Wilmer Lozano Consulting Provider Sonu Pack Consulting Provider Yulissa Quintero Consulting Provider Unavailable Skyler Tavares Consulting Provider Unavailable Franci Lange Consulting Provider Елена Georges Consulting Provider Unavailable Wilmer Wallis Consulting Provider Unavailable Ct Eaton Consulting Provider Frieda Salcido Consulting Provider Unavailable Chevy Fang Consulting Provider Unavailable Darcy Aleman Consulting Provider Octavio Wu Consulting Provider Unavailable Kennedi Cruz Consulting Provider Unavailable Cm Junior Consulting Provider [phone] Dominick Armstrong Consulting Provider Unavailable Qi Carter Consulting Provider Unavailable Adarsh Morales Consulting Provider Unavailable Stephanie Ely Consulting Provider Unavailable Alyx Turner Consulting Provider Unavailable Capri Whitfield Consulting Provider Unavailable Amanda Truong I Consulting Provider Unavailable Alyx Brand Consulting Provider Unavailable June Demarco Consulting Provider Unavailable Marilin Allen Consulting Provider Unavailable Cong Ceron Jr Consulting Provider [phone] Janice Salinas Consulting Provider Unavailable Casandra Caceres Consulting Provider Unavailable Jessica Ely Consulting Provider [phone] Skyler Luciano Consulting Provider Unavailable Alyx Hansen Consulting Provider Unavailable Gideon Nur Consulting Provider Zaynab Mirza Consulting Provider Unavailable Jaswant Rizvi Consulting Provider Unavailable Magnolia Holcomb Consulting Provider Vandana Dover Consulting Provider Unavailable Micah Vang Consulting Provider Unavailable Lori Ley Consulting Provider Unavailable Sally Marina Consulting Provider Unavailable Radha Soto Consulting Provider Unavailable Page Zhang Consulting Provider Unavailable Breanna Jung Consulting Provider Unavailable Katie Christianson Consulting Provider Gemma Brizuela Consulting Provider [phone] Fransisca Gallo Consulting Provider [phone] Norah Donald Consulting Provider Unavailable Emilia Pearson Consulting Provider Unavailable Renetta Bunn Consulting Provider Unavailable Vane Pavon Consulting Provider Unavailable Ellyn Rangel Consulting Provider Unavailable SYSTEM, SYSTEM Consulting Provider Unavailable Kate Rizvi Consulting Provider Unavailable Wilmer Ferreira Consulting Provider Unavailable Arelis Mora Consulting Provider Unavailable Juliette Jim Consulting Provider Unavailable Carina Sanchez Consulting Provider Unavailable Nabila Pope Consulting Provider Unavailable Chel Ochoa Consulting Provider Unavailable Bonnie Mathew Consulting Provider Taamra Huynh Consulting Provider Unavailable Jose M Tomlinson Consulting Provider Unavailable Angeli Howe I Consulting Provider Unavailable Tavia Villalba Consulting Provider [phone] Yany Trinidad Consulting Provider Unavailable Liberty Wei Consulting Provider Unavailable Eliazar Howe Consulting Provider Unavailable Kevin Devi Consulting Provider John Wadsworth Consulting Provider Caroline Abreu Consulting Provider Unavailable Sanchez Jackson Consulting Provider [phone] Amol Olivarez Consulting Provider Unavailable Lam Flynn Consulting Provider Unavailable Jessie Holloway Consulting Provider Unavailable Yany Palma Consulting Provider Unavailable June Morocho Consulting Provider PCP, No Patient Contact Consulting Provider Unavailable Anisa Leos Consulting Provider Unavailable Amy Dasilva Consulting Provider Unavailable Cira Corral Consulting Provider Unavailable Joseph Mahajan Consulting Provider Unavailable Joe Meléndez Consulting Provider Unavailable Isaiah Herman Consulting Provider Unavailable Slime Salguero Consulting Provider Unavailable Luis Flynn) Gamaliel Consulting Provider [phone] Skyler Maldonado Consulting Provider Unavailable Lulu Fu Consulting Provider [phone] Marley Villarreal Consulting Provider Unavailable Tita Connelly Consulting Provider [phone] Radha Merrill Consulting Provider Unavailable Sky Rizvi Consulting Provider Unavailable Linda Morejon Consulting Provider Neris Wolff Consulting Provider Unavailable Jessica Giordano Consulting Provider [phone] Nel Gilmore Consulting Provider Dean, Fide B Consulting Provider Sadia Xochilt Consulting Provider Unavailable Veronica Lambert Consulting Provider Unavailable Otilio Stephens Consulting Provider Unavailable Allergies, Adverse Reactions, Alerts Substance Reaction Status aspirin severe chest pain?? Active erythromycin ?? Active penicillins rash?? Active phenobarbital rash?? Active Silk Tape takes skin off?? Active Problem List Condition Effective Dates Status Altered mental status ?? Active Craniotomy ?? Active DM - Diabetes mellitus 02/18/2011 Active HTN - Hypertension ?? Active Lethargic ?? Active Meningioma of brain ?? Active Visual disturbance ?? Active Medications Medication Instructions Start Date End Date Status Keppra 100 mg/mL oral 500 mg, 5 mL, Route: [place], 01/31/2011 02/02/2011 Discontinued solution Drug form: SOLN, Q12H, Start date: 01/31/11 21:00:00, Duration: 30 day, Stop date: 03/02/11 9:00:00 dexamethasone 4 mg, 1 tab, Route: PO, 02/01/2011 02/02/2011 Completed Drug form: TAB, Q8H, Start date: 02/01/11 0:00:00, Duration: 2 day, Stop date: 02/02/11 16:00:00 vancomycin 1 gm, Route: IVPB, Drug 02/19/2011 02/19/2011 Discontinued form: INJ, [id number], Start date: 02/19/11 14:00:00, Duration: 30 day, Stop date: 03/21/11 2:00:00 Fence 5/325 oral tablet 1 tab, Route: PO, Drug 01/31/2011 02/19/2011 Discontinued Form: TAB, Q4H, PRN as needed for pain, Start date: 01/31/11 14:56:00, Duration: 30 day, Stop date: 03/02/11 14:55:00 Fleet Enema 133 ml, Route: SD, Drug 02/10/2011 02/10/2011 Completed Form: JEANNIE, ONCE, Start date: 02/10/11 14:15:00, Stop date: 02/10/11 14:15:00 bisacodyl 10 mg, 1 supp, Route: 02/10/2011 02/10/2011 Completed SD, Drug form: SUPP, ONCE, Start date: 02/10/11 14:15:00, Stop date: 02/10/11 14:15:00 metFORmin 500 mg oral 500 mg, 1 tab, Route: 01/31/2011 02/19/2011 Discontinued tablet PO, Drug form: TAB, Q8H, Start date: 01/31/11 16:00:00, Duration: 30 day, Stop date: 03/02/11 8:00:00 potassium chloride 20 mEq 20 mEq, 1 tab, Route: 02/01/2011 02/01/2011 Discontinued oral tablet, extended PO, Drug form: ERTAB, release Daily, Start date: 02/01/11 9:00:00, Duration: 30 day, Stop date: 03/02/11 9:00:00 Crestor 20 mg, 2 tab, Route: PO, 02/01/2011 02/19/2011 Discontinued Drug form: TAB, Daily, Start date: 02/01/11 9:00:00, Duration: 30 day, Stop date: 03/02/11 9:00:00 Lasix 40 mg oral tablet 80 mg, 2 tab, Route: PO, 02/01/2011 02/10/2011 Discontinued Drug form: TAB, Daily, Start date: 02/01/11 9:00:00, Duration: 30 day, Stop date: 03/02/11 9:00:00 [place] Route: SUB-Q, Drug form: 01/31/2011 01/31/2011 Discontinued INJ, BID, Start date: 01/31/11 17:00:00, Duration: 30 day, Stop date: 03/02/11 9:00:00 potassium chloride 20 mEq 40 mEq, 2 tab, Route: 02/03/2011 02/11/2011 Discontinued oral tablet, extended PO, Drug form: ERTAB, release Daily, Start date: 02/03/11 9:00:00, Stop date: 03/05/11 8:00:00 insulin isophane-NPH 15 unit, 0.15 mL, Route: 02/03/2011 02/03/2011 Discontinued SUB-Q, Drug form: INJ, Q24H, Start date: 02/03/11 0:00:00, Duration: 30 day, Stop date: 03/04/11 0:00:00 dexamethasone 1 mg, 1 tab, Route: PO, 02/07/2011 02/08/2011 Completed Drug form: TAB, TID, Start date: 02/07/11 8:00:00, Duration: 2 day, Stop date: 02/08/11 17:00:00 Kayexalate 15 gm, 60 mL, Route: PO, 02/01/2011 02/01/2011 Completed Drug form: SUSP, ONCE, Start date: 02/01/11 13:19:00, Stop date: 02/01/11 13:19:00 dexamethasone 2 mg, 1 tab, Route: PO, 02/05/2011 02/06/2011 Completed Drug form: TAB, TID, Start date: 02/05/11 8:00:00, Duration: 2 day, Stop date: 02/06/11 17:00:00 hydrALAZINE 25 mg oral 25 mg, 1 tab, Route: PO, 02/01/2011 02/19/2011 Discontinued tablet Drug form: TAB, BID, Start date: 02/01/11 17:00:00, Stop date: 03/03/11 8:00:00 dexamethasone 3 mg, 1.5 tab, Route: 02/03/2011 02/04/2011 Completed PO, Drug form: TAB, TID, Start date: 02/03/11 8:00:00, Duration: 2 day, Stop date: 02/04/11 17:00:00 lisinopril 10 mg, 1 tab, Route: PO, 02/04/2011 02/05/2011 Discontinued Drug form: TAB, QPM, Start date: 02/04/11 8:00:00, Duration: 30 day, Stop date: 03/05/11 17:00:00 atenolol 50 mg oral tablet 50 mg, 1 tab, Route: PO, 02/01/2011 01/31/2011 Canceled Drug form: TAB, Daily, Start date: 02/01/11 9:00:00, Duration: 30 day, Stop date: 03/02/11 9:00:00 dexamethasone 1 mg, 1 tab, Route: PO, 02/11/2011 02/12/2011 Completed Drug form: TAB, Daily, Start date: 02/11/11 8:00:00, Duration: 2 day, Stop date: 02/12/11 8:00:00 dexamethasone 1 mg, 1 tab, Route: PO, 02/09/2011 02/10/2011 Completed Drug form: TAB, BID, Start date: 02/09/11 8:00:00, Duration: 2 day, Stop date: 02/10/11 20:00:00 Kayexalate 30 gm, 120 mL, Route: 02/11/2011 02/11/2011 Completed PO, Drug form: SUSP, ONCE, Start date: 02/11/11 17:22:00, Stop date: 02/11/11 17:22:00 potassium chloride 20 mEq 40 mEq, 2 tab, Route: 02/03/2011 02/03/2011 Completed oral tablet, extended PO, Drug form: ERTAB, release ONCE, Start date: 02/03/11 14:29:00, Stop date: 02/03/11 14:29:00 Humulin N 20 unit, 0.2 mL, Route: 02/01/2011 02/03/2011 Discontinued SUB-Q, Drug form: INJ, BID, Start date: 02/01/11 0:00:00, Stop date: 03/02/11 16:00:00 insulin isophane-NPH 8 unit, 0.08 mL, Route: 02/03/2011 02/19/2011 Discontinued SUB-Q, Drug form: INJ, Bedtime, Start date: 02/03/11 21:00:00, Stop date: 03/04/11 21:00:00 potassium bicarbonate 25 25 mEq, Substitution 02/13/2011 02/18/2011 Discontinued mEq oral tablet, Allowed effervescent insulin isophane-NPH 8 unit, 0.08 mL, Route: 02/04/2011 02/19/2011 Discontinued SUB-Q, Drug form: INJ, Before Breakfast, Start date: 02/04/11 6:30:00, Stop date: 03/05/11 6:30:00 Milk of Magnesia 24% oral 1.2 gm, 5 mL, PO, Daily, 02/18/2011 ?? Ordered concentrate PRN, 150 mL, Constipation, Substitution Allowed, Maintenance, CONC ondansetron 2 mg/mL 4 mg, 2 mL, IVP, Q8H, 02/18/2011 ?? Ordered injectable solution PRN, 30 mL, Nausea & Vomiting, Substitution Allowed, SOLN Prinivil 10 mg oral tablet 10 mg, 1 tab, PO, QPM, 02/18/2011 ?? Ordered 30 tab, Substitution Allowed, TAB potassium chloride 40 mEq, 30 mL, Route: 02/12/2011 02/13/2011 Discontinued PO, Drug form: LIQ, Daily, Start date: 02/12/11 11:00:00, Duration: 30 day, Stop date: 03/14/11 8:00:00 Keppra 500 mg oral tablet 500 mg, 1 tab, PO, Q12H, 02/18/2011 ?? Ordered 60 tab, Substitution Allowed, TAB heparin 5,000 unit, 1 mL, Route: 02/01/2011 02/18/2011 Discontinued SUB-Q, Drug form: INJ, Q8H, Start date: 02/01/11 16:00:00, Duration: 30 day, Stop date: 03/03/11 8:00:00 NS (Bolus) IV 1,000 mL 1,000 mL, Rate: 1,000 ml/hr, Infuse over: 1 hr, Route: IV, Total Volume: 1,000, Priority: STAT, Start date: 02/11/11 8:37:00, Duration : 1 doses or times, Stop date: 02/11/11 9:36:00, Bolus Dose 02/11/20112010 Completed Bolus Dose Insulin regular 1 unit, 0.01 mL, Route: 01/31/2011 02/19/2011 Discontinued SUB-Q, Drug form: SOLN, TID-Before Meals, PRN Blood Glucose Results, Start date: 01/31/11 17:22:00, Duration: 30 day, Stop date: 03/02/11 17:21:00 Insulin regular 3 unit, 0.03 mL, Route: 01/31/2011 02/19/2011 Discontinued SUB-Q, Drug form: SOLN, TID-Before Meals, PRN Blood Glucose Results, Start date: 01/31/11 17:22:00, Duration: 30 day, Stop date: 03/02/11 17:21:00 Insulin regular 2 unit, 0.02 mL, Route: 01/31/2011 02/19/2011 Discontinued SUB-Q, Drug form: SOLN, TID-Before Meals, PRN Blood Glucose Results, Start date: 01/31/11 17:22:00, Duration: 30 day, Stop date: 03/02/11 17:21:00 Insulin regular 4 unit, 0.04 mL, Route: 01/31/2011 02/19/2011 Discontinued SUB-Q, Drug form: SOLN, TID-Before Meals, PRN Blood Glucose Results, Start date: 01/31/11 17:22:00, Duration: 30 day, Stop date: 03/02/11 17:21:00 Insulin regular 5 unit, 0.05 mL, Route: 01/31/2011 02/19/2011 Discontinued SUB-Q, Drug form: SOLN, TID-Before Meals, PRN Blood Glucose Results, Start date: 01/31/11 17:22:00, Duration: 30 day, Stop date: 03/02/11 17:21:00 normal saline 0.9% IV 1,000 mL, Rate: 100 02/18/2011 02/19/2011 Discontinued 1,000 mL ml/hr, Infuse over: 10 hr, Route: IV, Total Volume: 1,000, Start date: 02/18/11 11:29:00, Duration: 30 day, Stop date: 03/20/11 11:28:00 Keppra 500 mg, 1 tab, Route: 02/02/2011 02/19/2011 Discontinued PO, Drug form: TAB, Q12H, Start date: 02/02/11 21:00:00, Duration: 30 day, Stop date: 03/04/11 9:00:00 Humulin N Pen 100 units/mL 10 unit, SUB-Q, BID, 3 02/18/2011 ?? Ordered subcutaneous injection ml, Substitution Allowed, SUSP Xylocaine Jelly 2% topical 1 appl, Route: TOP, Q6H, 02/08/2011 02/19/2011 Discontinued gel with applicator Drug form: GEL PRN Pain, Start date: 02/08/11 16:04:00, Duration: 30 day, Stop date: 03/10/11 16:03:00 Humulin N Pen 100 units/mL 10 unit, SUB-Q, BID, 3 02/18/2011 ?? Ordered subcutaneous injection ml, Substitution Allowed, SUSP Prinivil 10 mg, 1 tab, Route: PO, 02/06/2011 02/19/2011 Discontinued Drug form: TAB, QPM, Start date: 02/06/11 17:00:00, Duration: 30 day, Stop date: 03/07/11 17:00:00 [place] Thyroid 120 mg, 2 tab, Route: 02/01/2011 02/19/2011 Discontinued PO, Drug form: TAB, Daily, Start date: 02/01/11 9:00:00, Duration: 30 day, Stop date: 03/02/11 9:00:00 hydrALAZINE 25 mg oral 25 mg, 1 tab, PO, BID, 02/18/2011 ?? Ordered tablet 60 tab, Substitution Allowed, TAB bisacodyl 10 mg rectal 10 mg, 1 supp, SD, 02/18/2011 ?? Ordered suppository Bedtime, PRN, 30 supp, Constipation, Substitution Allowed, SUPP Fence 5/325 oral tablet 1 tab, PO, Q4H, PRN, 30 02/18/2011 ?? Ordered tab, as needed for pain, Substitution Allowed, Maintenance, TAB [place] Thyroid 120 mg oral 120 mg, 1 tab, PO, 02/18/2011 ?? Ordered tablet Daily, 30 tab, Substitution Allowed, TAB Crestor 20 mg oral tablet 20 mg, 1 tab, PO, Daily, 02/18/2011 ?? Ordered 30 tab, Substitution Allowed, TAB bisacodyl 10 mg, Route: SD, Drug 01/31/2011 01/31/2011 Discontinued form: SUPP, Daily, PRN as needed for constipation, Start date: 01/31/11 14:56:00, Duration: 30 day, Stop date: 03/02/11 14:55:00 Kayexalate 15 gm, 60 mL, Route: PO, 02/11/2011 02/12/2011 Completed Drug form: SUSP, ONCE, Start date: 02/11/11 21:17:00, Stop date: 02/11/11 21:17:00 metFORmin 500 mg oral 500 mg, 1 tab, PO, Q8H, 02/18/2011 ?? Ordered tablet 90 tab, Substitution Allowed, TAB Milk of Magnesia 30 mL, Route: PO, Drug 01/31/2011 02/19/2011 Discontinued Form: SUSP, Daily, PRN Constipation, Start date: 01/31/11 17:22:00, Duration: 30 day, Stop date: 03/02/11 17:21:00 bisacodyl 10 mg, 1 supp, Route: 01/31/2011 02/19/2011 Discontinued SD, Drug form: SUPP, Bedtime, PRN Constipation, Start date: 01/31/11 17:22:00, Duration: 30 day, Stop date: 03/02/11 17:21:00 ondansetron 4 mg, 2 mL, Route: IVP, 01/31/2011 02/19/2011 Discontinued Drug form: INJ, Q8H, PRN Nausea & Vomiting, Start date: 01/31/11 17:22:00, Duration: 30 day, Stop date: 03/02/11 17:21:00 Saline Flush 0.9% 3 mL, Route: IVP, Drug Form: INJ, Q8H, PRN Line Flush, Start date: 01/31/11 17:22:00, Duration: 30 day, Stop date: 03/02/11 17:21:00, Administer at least once every 8 hours 01/31/2011 02/19/2011 Discontinued Administer at least once every 8 hours Vital Signs Most recent to oldest 1 2 3 [Reference Range]: Height 149.86 cm ? (01/31/2011 17:02:00) ?? Temperature Oral 98.6 DegF 97.5 DegF 98.4 DegF [96.4-99.1 DegF] (02/19/2011 04:57:00) ?? (02/18/2011 22:09:00) ?? (2010 15:00:00) ?? Systolic Blood Pressure 128 mmHg 115 mmHg 152 mmHg [90-140 mmHg] (02/19/2011 04:57:00) ?? (02/18/2011 22:09:00) ?? *HI* (02/18/2011 15:00:00) ?? Diastolic Blood Pressure 63 mmHg 58 mmHg 64 mmHg [60-90 mmHg] (02/19/2011 04:57:00) ?? *LOW* (02/18/2011 15:00:00) ?? (02/18/2011 22:09:00) ?? Respiratory Rate [14-20 20 BRMIN 20 BRMIN 18 BRMIN BRMIN] (02/19/2011 04:57:00) ?? (02/18/2011 22:09:00) ?? (02/18/2011 15:00: 00) ?? Peripheral Pulse Rate 104 bpm 110 bpm 108 bpm [60-100 bpm] *HI* *HI* *HI* (02/19/2011 04:57:00) ?? (02/18/2011 22:09:00) ?? (02/18/2011 15:00:00) ?? Weight 100.455 kg ? (01/31/2011 17:02:00) ?? Results BEDSIDE GLUCOSE TESTING Most recent to oldest 1 2 3 [Reference Range]: Gluc POC Lifscn [65-110 142 mg/dL 1 153 mg/dL 2 149 mg/dL 3 mg/dL] *HI* *HI* *HI* (02/19/2011 05:22:00) ?? (02/18/2011 21:28:00) ?? (02/18/2011 19:46:00) ?? Comment1 Notify RN/MD Notify RN/MD Notify RN/MD *NA* *NA* *NA* (02/19/2011 05:22:00) ?? (02/18/2011 21:28:00) ?? (02/18/2011 16:40:00) ?? Comment2 Sliding Scale Sliding Scale Sliding Scale *NA* *NA* *NA* (02/11/2011 05:00:00) ?? (02/10/2011 21:00:00) ?? (02/06/2011 21:44:00) ?? 1Interpretive Data: Upper Reportable Limit: 200 mg/dL.2Interpretive Data: Upper Reportable Limit: 200 mg/dL.3Interpretive Data: Upper Reportable Limit: 200 mg/dL.URINALYSIS Most recent to oldest [Reference Range]: 1 2 3 UA Turbidity [>Clear] Clear ? (02/02/2011 17:21:00) ?? UA Color [>Yellow] Light Yellow ? *NA* (02/02/2011 17:21:00) ?? UA pH [5.0-8.0] 7.0 ? (02/02/2011 17:21:00) ?? UA Spec Grav [<<=1.030] 1.004 ? (02/02/2011 17:21:00) ?? UA Glucose [>Negative mg/dL] Negative mg/dL ? *NA* (02/02/2011 17:21:00) ?? UA Blood [>Negative] Negative ? (02/02/2011 17:21:00) ?? UA Ketones [>Negative mg/dL] Negative mg/dL ? *NA* (02/02/2011 17:21:00) ?? UA Protein [>Negative mg/dL] Negative mg/dL ? (02/02/2011 17:21:00) ?? UA Urobilinogen [0.1-1.0 mg/dL] <=1.0 mg/dL ? *NA* (02/02/2011 17:21:00) ?? UA Bili [>Negative] Negative ? *NA* (02/02/2011 17:21:00) ?? UA Leuk Est [>Negative] Negative ? (02/02/2011 17:21:00) ?? UA Nitrite [>Negative] Negative ? (02/02/2011 17:21:00) ?? UA RBC [0-2 /HPF] <1 /HPF ? (02/02/2011 17:21:00) ?? UA Bacteria [>None Seen /HPF] Occasional /HPF ? *NA* (02/02/2011 17:21:00) ?? UA Sq Epi None Seen ? *NA* (02/02/2011 17:21:00) ?? STOOL TESTS Most recent to oldest [Reference Range]: 1 2 3 Fecal Leukocyte None Seen 4 ? (02/11/2011 00:59:00) ?? 4Interpretive Data: A Value of None Seen, Rare, or Few is Normal.BLOOD BANK RESULTS Most recent to oldest [Reference Range]: 1 2 3 ABO/Rh O NEG ? *Unknown* (02/05/2011 14:12:00) ?? Antibody Scrn Negative ? (02/05/2011 14:12:00) ?? CHEMISTRY Most recent to oldest 1 2 3 [Reference Range]: Sodium Lvl [135-145 mEq/L] 141 mEq/L 134 mEq/L 135 mEq/L (02/19/2011 06:00:00) ?? *LOW* (02/12/2011 05:09:00) ?? (02/13/2011 04:47:00) ?? Potassium Lvl [3.5-5.1 4.0 mEq/L 4.9 mEq/L 5 3.6 mEq/L mEq/L] (02/19/2011 06:00:00) ?? (02/13/2011 04:47:00) ?? (02/12/2011 05:09: 00) ?? Chloride Lvl [95-109 mEq/L] 109 mEq/L 97 mEq/L 97 mEq/L (02/19/2011 06:00:00) ?? (02/13/2011 04:47:00) ?? (02/12/2011 05:09:00) ?? CO2 [24-32 mEq/L] 24 mEq/L 25 mEq/L 23 mEq/L (02/19/2011 06:00:00) ?? (02/13/2011 04:47:00) ?? *LOW* (02/12/2011 05:09:00) ?? AGAP [10.0-20.0 mEq/L] 12.0 mEq/L 16.9 mEq/L 18.6 mEq/L (02/19/2011 06:00:00) ?? (02/13/2011 04:47:00) ?? (02/12/2011 05:09:00) ?? Creatinine Lvl [0.5-1.4 0.6 mg/dL 0.4 mg/dL 0.7 mg/dL mg/dL] (02/19/2011 06:00:00) ?? *LOW* (02/12/2011 05:09:00) ?? (02/13/2011 04:47:00) ?? eGFR >60 6 48 7 ?? *NA* *NA* (02/13/2011 04:47:00) ?? (02/10/2011 14:39:00) ?? BUN [7-22 mg/dL] 12 mg/dL 17 mg/dL 19 mg/dL (02/19/2011 06:00:00) ?? (02/13/2011 04:47:00) ?? (02/12/2011 05:09:00) ?? B/C Ratio [6-25] 43 45 23 *HI* *HI* (02/10/2011 14:39:00) ?? (02/13/2011 04:47:00) ?? (02/11/2011 14:00:00) ?? Glucose Lvl 99 mg/dL 8 109 mg/dL 9 63 mg/dL 10 *NA* *NA* *NA* (02/19/2011 06:00:00) ?? (02/13/2011 04:47:00) ?? (02/12/2011 05:09:00) ?? Total Protein [6.4-8.4 5.8 g/dL 6.8 g/dL 6.1 g/dL g/dL] *LOW* (02/11/2011 14:00:00) ?? *LOW* (02/13/2011 04:47:00) ?? (02/10/2011 14:39:00) ?? Albumin Lvl [3.5-5.0 g/dL] 2.7 g/dL 3.2 g/dL 3.1 g/dL *LOW* *LOW* *LOW* (02/13/2011 04:47:00) ?? (02/11/2011 14:00:00) ?? (02/10/2011 14:39:00) ?? Globulin [2.0-4.0 g/dL] 3.1 g/dL 3.6 g/dL 3.0 g/dL (02/13/2011 04:47:00) ?? (02/11/2011 14:00:00) ?? (02/10/2011 14:39:00) ?? A/G Ratio [0.7-1.6] 0.9 0.9 1.0 (02/13/2011 04:47:00) ?? (02/11/2011 14:00:00) ?? (02/10/2011 14:39:00) ?? Calcium Lvl [8.5-10.5 7.9 mg/dL 8.5 mg/dL 8.3 mg/dL mg/dL] *LOW* (02/13/2011 04:47:00) ?? *LOW* (02/19/2011 06:00:00) ?? (02/12/2011 05:09:00) ?? Magnesium Lvl [1.8-2.4 1.8 mg/dL ? mg/dL] (02/11/2011 14:00:00) ?? ALT [0-65 U/L] 52 U/L 59 U/L 64 U/L (02/13/2011 04:47:00) ?? (02/11/2011 14:00:00) ?? (02/10/2011 14:39:00) ?? AST [0-37 U/L] 49 U/L 57 U/L 31 U/L *HI* *HI* (02/10/2011 14:39:00) ?? (02/13/2011 04:47:00) ?? (02/11/2011 14:00:00) ?? Alk Phos [39-136 U/L] 183 U/L 258 U/L 235 U/L *HI* *HI* *HI* (02/13/2011 04:47:00) ?? (02/11/2011 14:00:00) ?? (02/10/2011 14:39:00) ?? Bili Total [0.2-1.3 mg/dL] 0.6 mg/dL 0.7 mg/dL 0.5 mg/dL (02/13/2011 04:47:00) ?? (02/11/2011 14:00:00) ?? (02/10/2011 14:39:00) ?? Total CK [12-191 U/L] 64 U/L 71 U/L ?? (02/03/2011 21:09:00) ?? (02/03/2011 13:20:00) ?? Troponin-I [0.00-0.40 0.03 ng/mL 0.05 ng/mL ?? ng/mL] (02/03/2011 21:09:00) ?? (02/03/2011 13:20:00) ?? T4 Free [0.76-1.46 ng/dL] 0.98 ng/dL ? (02/01/2011 05:30:00) ?? TSH [0.360-3.740 uIU/mL] 0.711 uIU/mL ? (02/01/2011 05:30:00) ?? 5Result Comment: Specimen Moderately Hemolyzed.6Result Comment: Expected eGFR for >20 yr. age group: >=60 ml/min/1.73 sq m The eGFR calculation is not valid in or for persons < 18 years of age. From National [employer] Education Program (NKDEP)7Result Comment: Expected eGFR for >20 yr. age group: > =60 ml/min/1.73 sq m The eGFR calculation is not valid in or for persons < 18 years of age. From National Kid[employer] Education Program ( NKDEP)8Interpretive Data: Reference Ranges : 0 - 7 days : 41 - 90 mg/dL7 days - 150 yrs : 70 - 99 mg/dL (fasting), based on the clinical recommendations of the [employer].9Interpretive Data: Reference Ranges : 0 - 7 days : 41 - 90 mg/dL7 days - 150 yrs : 70 - 99 mg/dL (fasting), based on the clinical recommendations of the [employer].10Interpretive Data: Reference Ranges : 0 - 7 days : 41 - 90 mg /dL7 days - 150 yrs : 70 - 99 mg/dL (fasting), based on the clinical recommendations of the [employer].HEMATOLOGY Most recent to oldest 1 2 3 [Reference Range]: WBC [3.7-10.4 K/CMM] 6.2 K/CMM 6.4 K/CMM 12.9 K/CMM (02/19/2011 06:00:00) ?? (02/18/2011 03:39:00) ?? *HI* (02/15/2011 02:48:00) ?? RBC [4.20-5.40 M/CMM] 3.26 M/CMM 3.51 M/CMM 3.58 M/CMM *LOW* *LOW* *LOW* (02/19/2011 06:00:00) ?? (02/18/2011 03:39:00) ?? (02/15/2011 02:48:00) ?? Hgb [12.0-16.0 g/dL] 10.7 g/dL 11.5 g/dL 11.7 g/dL *LOW* *LOW* *LOW* (02/19/2011 06:00:00) ?? (02/18/2011 03:39:00) ?? (02/15/2011 02:48:00) ?? Hct [36.0-48.0 %] 30.9 % 33.1 % 34.1 % *LOW* *LOW* *LOW* (02/19/2011 06:00:00) ?? (02/18/2011 03:39:00) ?? (02/15/2011 02:48:00) ?? MCV [81.0-99.0 fL] 94.8 fL 94.3 fL 95.1 fL (02/19/2011 06:00:00) ?? (02/18/2011 03:39:00) ?? (02/15/2011 02:48:00) ?? MCH [27.0-31.0 pg] 32.9 pg 32.8 pg 32.7 pg *HI* *HI* *HI* (02/19/2011 06:00:00) ?? (02/18/2011 03:39:00) ?? (02/15/2011 02:48:00) ?? MCHC [32.0-36.0 g/dL] 34.7 g/dL 34.7 g/dL 34.3 g/dL (02/19/2011 06:00:00) ?? (02/18/2011 03:39:00) ?? (02/15/2011 02:48:00) ?? RDW [11.5-14.5 %] 16.4 % 16.6 % 16.5 % *HI* *HI* *HI* (02/19/2011 06:00:00) ?? (02/18/2011 03:39:00) ?? (02/15/2011 02:48:00) ?? Platelet [133-450 K/CMM] 159 K/CMM 152 K/CMM 117 K/CMM (02/19/2011 06:00:00) ?? (02/18/2011 03:39:00) ?? *LOW* (02/15/2011 02:48:00) ?? MPV [7.4-10.4 fL] 8.2 fL 7.9 fL 8.1 fL (02/19/2011 06:00:00) ?? (02/18/2011 03:39:00) ?? (02/15/2011 02:48:00) ?? Segs [45.0-75.0 %] 39.6 % 64.6 % 66.2 % *LOW* (02/15/2011 02:48:00) ?? (02/12/2011 05:09:00) ?? (02/19/2011 06:00:00) ?? Bands [0.0-11.0 %] 0.0 % ? (02/06/2011 03:33:00) ?? Lymphocytes [20.0-40.0 %] 39.3 % 26.8 % 26.5 % (02/19/2011 06:00:00) ?? (02/15/2011 02:48:00) ?? (02/12/2011 05:09:00) ?? Monocytes [2.0-12.0 %] 10.9 % 4.8 % 5.5 % (02/19/2011 06:00:00) ?? (02/15/2011 02:48:00) ?? (02/12/2011 05:09:00) ?? Eosinophils [0.0-4.0 %] 9.4 % 3.0 % 1.1 % *HI* (02/15/2011 02:48:00) ?? (02/12/2011 05:09:00) ?? (02/19/2011 06:00:00) ?? Basophils [0.0-1.0 %] 0.8 % 0.8 % 0.7 % (02/19/2011 06:00:00) ?? (02/15/2011 02:48:00) ?? (02/12/2011 05:09:00) ?? Segs-Bands # [1.5-8.1 2.4 K/CMM 8.3 K/CMM 12.2 K/CMM K/CMM] (02/19/2011 06:00:00) ?? *HI* *HI* (02/15/2011 02:48:00) ?? (02/12/2011 05:09:00) ?? Lymphocytes # [1.0-5.5 2.4 K/CMM 3.5 K/CMM 4.9 K/CMM K/CMM] (02/19/2011 06:00:00) ?? (02/15/2011 02:48:00) ?? (02/12/2011 05:09: 00) ?? Monocytes # [0.0-0.8 K/CMM] 0.7 K/CMM 0.6 K/CMM 1.0 K/CMM (02/19/2011 06:00:00) ?? (02/15/2011 02:48:00) ?? *HI* (02/12/2011 05:09:00) ?? Eosinophils # [0.0-0.5 0.6 K/CMM 0.4 K/CMM 0.2 K/CMM K/CMM] *HI* (02/15/2011 02:48:00) ?? (02/12/2011 05:09:00) ?? (02/19/2011 06:00:00) ?? Basophils # [0.0-0.2 K/CMM] 0.0 K/CMM 0.1 K/CMM 0.1 K/CMM (02/19/2011 06:00:00) ?? (02/15/2011 02:48:00) ?? (02/12/2011 05:09:00) ?? Anisocyte [>None Seen] 1+ 1+ ?? *ABN* *ABN* (02/11/2011 14:00:00) ?? (02/08/2011 05:19:00) ?? Polychrom [>None Seen] Slight ? (02/08/2011 05:19:00) ?? Hypochrom [>None Seen] Slight ? (02/08/2011 05:19:00) ?? Plt Morph Normal ? (02/08/2011 05:19:00) ?? PT [12.0-14.7 seconds] 13.2 seconds ? (02/19/2011 06:00:00) ?? INR [0.85-1.17] 1.00 11 ? (02/19/2011 06:00:00) ?? PTT [22.9-35.8 seconds] 30.3 seconds 12 ? (02/19/2011 06:00:00) ?? 11Interpretive Data: RECOMMENDED RANGES FOR PROTIME INR: 2.0-3.0 for most medical and surgical thromboembolic states. 2.5-3.5 for artificial heart valves and recurrent embolism.INR SHOULD BE USED ONLY FOR PATIENTS ON STABLE ANTICOAGULANT THERAPY.12Interpretive Data: Heparin Therapeutic Range: 57 - 92 SecondsIMMUNOLOGY Most recent to oldest [Reference Range]: 1 2 3 Prealbumin [18.0-45.0 mg/dL] 19.4 mg/dL ? (02/01/2011 05:30:00) ?? Microbiology Reports PROCEDURE:Culture: Aspirate/Body Fluid/Tissue STATUS: In Progress BODY SITE: Skin COLLECTED DATE/TIME: 02/19/2011 12:12:00 SOURCE: Tissue FREE TEXT SOURCE: [place] stat [id number], skin tissue , cup PRELIMINARY REPORTS Preliminary ReportNo Growth At 1 DaySTAIN REPORTS Stain ReportNo Wbc'S; No Organisms Seen Phone Report Made To: [place] ([place] [id number]) 02/19/2011 12:42:27 Read Back Ok PROCEDURE: Culture: Urine STATUS: Auth (Verified) BODY SITE: ?? COLLECTED DATE/TIME: 02/02/2011 18:00:00 SOURCE: Urine, Catheterized FREE TEXT SOURCE: short cup FINAL REPORTS Final [id number],000/Ml Escherichia coli 1000-10, 000/Ml Klebsiella pneumoniae ssp pneumoniaePRELIMINARY REPORTS Preliminary Fnpiqu1584-04,000/Ml Gram Negative Rods, Lactose Fermenters , 2 [place] Types Preliminary [id number],000/Ml Gram Negative Rods, Lactose Fermenters 1000-10,000/Ml Gram Negative Rods, Non-LactoseFermenters SUSCEPTIBILITY REPORT KLEPNE Antibiotic INTERP. VDIL Amikacin S ?? Amoxicillin/Clavulanate S ?? Ampicillin R ?? Cefepime S ?? Cefotaxime S ?? Ceftazidime S ?? Ceftriaxone S ?? Ciprofloxacin S ?? Gentamicin S ?? Levofloxacin S ?? Meropenem S ?? Nitrofurantoin I ?? Tetracycline S ?? Tobramycin S ?? Trimethoprim/Sulfamethoxazole S ?? EC Antibiotic INTERP. VDIL Amikacin S ?? Amoxicillin/Clavulanate S ?? Ampicillin S ?? Cefepime S ?? Cefotaxime S ?? Ceftazidime S ?? Ceftriaxone S ?? Ciprofloxacin S ?? Gentamicin S ?? Levofloxacin S ?? Meropenem S ?? Nitrofurantoin S ?? Tetracycline S ?? Tobramycin S ?? Trimethoprim/Sulfamethoxazole S ??
--- OUTSIDE RECORDS SUMMARY | 2018-09-07 21:58 | XMS REPORT | CCD ---
:[address] [facility] Care Team Providers Name Role Phone JOSUÉ Simon Consulting Provider Unavailable Moise Morelos Consulting Provider Unavailable Sharon Kimbrough Consulting Provider Unavailable Leoncio Singleton Consulting Provider Unavailable June Mares Consulting Provider Katia Borrego Consulting Provider Unavailable Chaitanya Crowe Consulting Provider Brigitte Acevedo Consulting Provider Jessica Dotson Consulting Provider Darlene Christie Consulting Provider Unavailable Jessica Corey Consulting Provider [phone] Deepika Patel Consulting Provider Unavailable Aissatou Bowman Consulting Provider Simran Wagoner Consulting Provider Unavailable Yulissa Quintero Consulting Provider Unavailable Franci Lange Consulting Provider Елена Georges Consulting Provider Unavailable Isela Herman Consulting Provider Unavailable Anny Baldwin Consulting Provider [phone] Lauren Fang Consulting Provider Unavailable Octavio Wu Consulting Provider Unavailable Kennedi Dunbar Consulting Provider Unavailable Cm Junior Consulting Provider [phone] Sylvia Aguilar Consulting Provider Unavailable Stephanie Ely Consulting Provider Unavailable June Demarco Consulting Provider Unavailable Casi Soto Consulting Provider Unavailable Casandra Caceres Consulting Provider Unavailable Zaynab Mirza Consulting Provider Unavailable Jaswant Rizvi Consulting Provider Unavailable Radha Soto Consulting Provider Unavailable Breanna Jung Consulting Provider Unavailable Katie Christianson Consulting Provider Val Walker Consulting Provider Gemma Brizuela Consulting Provider [id number] Fransisca Gallo Consulting Provider [phone] Norah Donald Consulting Provider Unavailable Emilia Pearson Consulting Provider Unavailable Socorro Oakley Consulting Provider Unavailable Aleksandra Brito Consulting Provider Unavailable Ellyn Rangel Consulting Provider Unavailable SYSTEM, SYSTEM Consulting Provider Unavailable Kate Rizvi Consulting Provider Unavailable Wilmer Ferreira Consulting Provider Unavailable Juliette Jim Consulting Provider Unavailable Mercy Arita Consulting Provider Bala Leonard Consulting Provider Unavailable Bonnie Mathew Consulting Provider Eulalia Sotelo Consulting Provider Unavailable Jacki Wadsworth Consulting Provider Unavailable Jose M Tomlinson Consulting Provider Unavailable Flora Roberson Consulting Provider Hermes Fu Consulting Provider Liberty Wei Consulting Provider Unavailable Shyam Princewill Consulting Provider Unavailable Shyam Chimkama Stephie Consulting Provider Caroline Abreu Consulting Provider Unavailable Amol Olivarez Consulting Provider Unavailable Lam Flynn Consulting Provider Unavailable Jessie Holloway Consulting Provider Unavailable PCP, No Patient Contact Consulting Provider Unavailable Anisa Leos Consulting Provider Unavailable Tita Schuster Consulting Provider Chetan Rizvi Consulting Provider Unavailable Lulu Fu Consulting Provider [phone] Marley Villarreal Consulting Provider Unavailable Radha Merrill Consulting Provider Unavailable Елена Villalta Consulting Provider Unavailable Neris Wolff Consulting Provider Unavailable Deirdre Nel L Consulting Provider Xochilt Mccullough Consulting Provider Unavailable Allergies, Adverse Reactions, Alerts [...] Medication Instructions Start Date End Date Status metoprolol 12.5 mg, 1 ea, Route: 03/06/2011 03/07/2011 Discontinued PO, Drug form: TAB, BID, Start date: 03/06/11 20:00:00, Duration: 30 day, Stop date: 04/05/11 8:00:00 Norvasc 5 mg, Route: PO, Daily, 03/02/2011 03/01/2011 Canceled Start date: 03/02/11 8:00:00, Duration: 30 day, Stop date: 03/31/11 8:00:00 docusate sodium 100 mg 100 mg, 1 cap, PO, BID, 03/06/2011 ?? Ordered oral capsule 30 cap, Substitution Allowed, CAP ciprofloxacin 250 mg oral 750 mg, 3 tab, PO, Q12H, 03/06/2011 ?? Ordered tablet 40 doses or times, Substitution Allowed, TAB Maxipime 2 g injection 2 gm, IV, Q8H, 60 doses 03/06/2011 04/03/2011 Ordered or times, Substitution Allowed magnesium oxide 400 mg, 1 tab, Route: 02/26/2011 03/03/2011 Completed PO, Drug form: TAB, BID, Start date: 02/26/11 20:00:00, Duration: 5 day, Stop date: 03/03/11 8:00:00 ondansetron 4 mg, 2 mL, Route: IVP, 02/26/2011 03/07/2011 Discontinued Drug form: INJ, ONCE, PRN Nausea & Vomiting, Start date: 02/26/11 17:39:00 Oracle Thyroid 120 mg, 2 tab, Route: 02/27/2011 03/07/2011 Discontinued PO, Drug form: TAB, Before Breakfast, Start date: 02/27/11 6:30:00, Duration: 30 day, Stop date: 03/28/11 6:30:00 Saline Flush 0.9% 5 ml, Route: IVP, Drug 02/26/2011 03/07/2011 Discontinued Form: INJ, PRN, PRN Line Flush, Start date: 02/26/11 17:39:00, Duration: 30 day, Stop date: 03/28/11 17:38:00 insulin isophane-NPH 10 unit, 0.1 mL, Route: 02/26/2011 03/07/2011 Discontinued SUB-Q, Drug form: INJ, BID, Start date: 02/26/11 20:00:00, Duration: 30 day, Stop date: 03/28/11 8:00:00 calcium carbonate 500 mg 500 mg, 1 tab, PO, TID, 03/06/2011 ?? Ordered oral tablet, chewable PRN, 30 tab, as needed for indigestion, Substitution Allowed, CHEWTAB metoprolol 25 mg oral 12.5 mg, 0.5 ea, PO, 03/06/2011 ?? Ordered tablet BID, 60 tab, Substitution Allowed, TAB calcium carbonate 500 mg, 1 tab, Route: 02/27/2011 03/05/2011 Completed PO, Drug form: TAB, TID, Start date: 02/27/11 8:00:00, Duration: 7 day, Stop date: 03/05/11 17:00:00 senna 8.6 mg, 1 tab, Route: 02/27/2011 03/07/2011 Discontinued PO, Drug Form: TAB, Daily, Start date: 02/27/11 8:00:00, Duration: 30 day, Stop date: 03/28/11 8:00:00 calcium carbonate 500 mg, 1 tab, Route: 02/26/2011 03/07/2011 Discontinued CHEW, Drug form: CHEWTAB, TID, PRN Indigestion, Start date: 02/26/11 17:39:00, Duration: 30 day, Stop date: 03/28/11 17:38:00 ciprofloxacin 750 mg, 3 tab, Route: 02/26/2011 03/07/2011 Discontinued PO, Drug form: TAB, Q12H, Priority: Routine, Start date: 02/26/11 23:00:00, Duration: 30 day, Stop date: 03/28/11 11:00:00 cefepime 2 gm, Route: IVPB, Drug 02/26/2011 03/07/2011 Discontinued form: INJ, ABXQ8H, Start date: 02/26/11 18:00:00, Duration: 30 day, Stop date: 03/28/11 10:00:00 [place] 5/325 oral tablet 1 tab, Route: PO, Drug 02/26/2011 03/07/2011 Discontinued Form: TAB, Q4H, PRN Pain, Start date: 02/26/11 17:39:00, Duration: 30 day, Stop date: 03/28/11 17:38:00 Insulin regular 5 unit, 0.05 mL, Route: 02/27/2011 03/07/2011 Discontinued SUB-Q, Drug form: SOLN, TID-Before Meals, Start date: 02/27/11 6:30:00, Stop date: 03/28/11 16:30:00 Lasix 40 mg oral tablet 20 mg, 0.5 tab, Route: 02/27/2011 03/05/2011 Discontinued PO, Drug form: TAB, Daily, Start date: 02/27/11 8:00:00, Stop date: 03/28/11 8:00:00 acetaminophen 650 mg, 20.3 mL, Route: 02/26/2011 03/07/2011 Discontinued PO, Drug form: LIQ, Q4H, PRN Fever, Start date: 02/26/11 17:39:00, Duration: 30 day, Stop date: 03/28/11 17:38:00 Crestor 20 mg, 2 tab, Route: PO, 02/26/2011 03/07/2011 Discontinued Drug form: TAB, Daily, Start date: 02/26/11 21:00:00, Duration: 30 day, Stop date: 03/27/11 21:00:00 docusate sodium 100 mg 100 mg, 1 cap, Route: 02/26/2011 03/07/2011 Discontinued oral capsule PO, Drug form: CAP, BID, Start date: 02/26/11 20:00:00, Duration: 30 day, Stop date: 03/28/11 8:00:00 levetiracetam 500 mg, 1 tab, Route: 02/26/2011 03/07/2011 Discontinued PO, Drug form: TAB, Q12H, Start date: 02/26/11 21:00:00, Duration: 30 day, Stop date: 03/28/11 9:00:00 trazodone 50 mg oral 50 mg, 1 tab, Route: PO, 02/27/2011 03/07/2011 Discontinued tablet Drug form: TAB, Bedtime, Start date: 02/27/11 21:00:00, Duration: 30 day, Stop date: 03/28/11 21:00:00 [place] 7.5/325 oral tablet 1 tab, Route: PO, Drug 02/26/2011 03/07/2011 Discontinued Form: TAB, Q4H, PRN Pain, Start date: 02/26/11 17:39:00, Duration: 30 day, Stop date: 03/28/11 17:38:00 heparin 5000 units/mL 5,000 unit, 1 mL, Route: 02/27/2011 03/07/2011 Discontinued injectable solution SUB-Q, Drug form: INJ, Q8H, Start date: 02/27/11 0:00:00, Duration: 30 day, Stop date: 03/28/11 16:00:00 hydrALAZINE 25 mg oral 25 mg, 1 tab, Route: PO, 02/27/2011 03/01/2011 Discontinued tablet Drug form: TAB, Q8H, Start date: 02/27/11 0:00:00, Duration: 30 day, Stop date: 03/28/11 16:00:00 Prinivil 20 mg, 1 tab, Route: PO, 02/26/2011 03/04/2011 Discontinued Drug form: TAB, BID, Start date: 02/26/11 20:00:00, Stop date: 03/28/11 8:00:00 Insulin regular 2 unit, 0.02 mL, Route: 02/26/2011 03/07/2011 Discontinued SUB-Q, Drug form: SOLN, TID-Before Meals, PRN Blood Glucose Results, Start date: 02/26/11 17:39:00, Duration: 30 day, Stop date: 03/28/11 17:38:00 Insulin regular 5 unit, 0.05 mL, Route: 02/26/2011 03/07/2011 Discontinued SUB-Q, Drug form: SOLN, TID-Before Meals, PRN Blood Glucose Results, Start date: 02/26/11 17:39:00, Duration: 30 day, Stop date: 03/28/11 17:38:00 Insulin regular 4 unit, 0.04 mL, Route: 02/26/2011 03/07/2011 Discontinued SUB-Q, Drug form: SOLN, TID-Before Meals, PRN Blood Glucose Results, Start date: 02/26/11 17:39:00, Duration: 30 day, Stop date: 03/28/11 17:38:00 Insulin regular 3 unit, 0.03 mL, Route: 02/26/2011 03/07/2011 Discontinued SUB-Q, Drug form: SOLN, TID-Before Meals, PRN Blood Glucose Results, Start date: 02/26/11 17:39:00, Duration: 30 day, Stop date: 03/28/11 17:38:00 Insulin regular 1 unit, 0.01 mL, Route: 02/26/2011 03/07/2011 Discontinued SUB-Q, Drug form: SOLN, TID-Before Meals, PRN Blood Glucose Results, Start date: 02/26/11 17:39:00, Duration: 30 day, Stop date: 03/28/11 17:38:00 trazodone 50 mg oral 50 mg, 1 tab, PO, 03/06/2011 ?? Ordered tablet Bedtime, 40 tab, Substitution Allowed, TAB [place] 5/325 oral tablet 1 tab, PO, Q4H, PRN, 40 03/06/2011 ?? Ordered tab, Pain, Substitution Allowed, Maintenance, TAB Novolin N 100 units/mL 10 unit, SUB-Q, BID, 10 03/06/2011 ?? Ordered subcutaneous injection ml, Substitution Allowed, SUSP Oracle Thyroid 60 mg oral 120 mg, 2 tab, PO, 03/06/2011 ?? Ordered tablet Before Breakfast, 60 tab, Substitution Allowed, TAB Keppra 500 mg oral tablet 500 mg, 1 tab, PO, Q12H, 03/06/2011 ?? Ordered 60 tab, Substitution Allowed, TAB Crestor 20 mg oral tablet 20 mg, 1 tab, PO, Daily, 03/06/2011 ?? Ordered 30 tab, Substitution Allowed, TAB senna 8.6 mg oral tablet 8.6 mg, 1 tab, PO, 03/06/2011 ?? Ordered Daily, 30 tab, Substitution Allowed, Maintenance, TAB Saline Flush 0.9% 3 mL, Route: IVP, Drug Form: INJ, Q8H, PRN Line Flush, Start date: 02/26/11 17:39:00, Duration: 30 day, Stop date: 03/28/11 17:38:00, Administer at least once every 8 hours 02/26/2011 03/07/2011 Discontinued Administer at least once every 8 hours Lasix 10 mg, 0.5 tab, Route: 03/06/2011 03/06/2011 Discontinued PO, Drug form: TAB, Daily, Start date: 03/06/11 8:00:00, Duration: 30 day, Stop date: 04/04/11 8:00:00 Vital Signs Most recent to oldest 1 2 3 [Reference Range]: Height 149.86 cm ? (02/26/2011 17:41:00) ?? Temperature Oral 98.4 DegF 98.6 DegF 97.6 DegF [96.4-99.1 DegF] (03/07/2011 05:15:00) ?? (03/06/2011 20:39:00) ?? (2010 15:12:00) ?? Systolic Blood Pressure 140 mmHg 140 mmHg 131 mmHg [90-140 mmHg] (03/07/2011 05:15:00) ?? (03/06/2011 20:39:00) ?? (03/06/2011 15:12:00) ?? Diastolic Blood Pressure 66 mmHg 69 mmHg 44 mmHg [60-90 mmHg] (03/07/2011 05:15:00) ?? (03/06/2011 20:39:00) ?? *LOW* (03/06/2011 15:12:00) ?? Respiratory Rate [14-20 20 BRMIN 20 BRMIN 18 BRMIN BRMIN] (03/07/2011 05:15:00) ?? (03/06/2011 20:39:00) ?? (03/06/2011 15:12: 00) ?? Peripheral Pulse Rate 97 bpm 115 bpm 104 bpm [60-100 bpm] (03/07/2011 05:15:00) ?? *HI* *HI* (03/06/2011 20:39:00) ?? (03/06/2011 15:12:00) ?? Weight 90.909 kg ? (02/26/2011 17:41:00) ?? Results BEDSIDE GLUCOSE TESTING Most recent to oldest 1 2 3 [Reference Range]: Gluc POC [place] [65-110 197 mg/dL 1 112 mg/dL 2 180 mg/dL 3 mg/dL] *HI* *HI* *HI* (03/07/2011 11:38:00) ?? (03/07/2011 05:32:00) ?? (03/06/2011 21:38:00) ?? Comment1 Notify RN/MD Notify RN/MD Notify RN/MD *NA* *NA* *NA* (03/07/2011 11:38:00) ?? (03/07/2011 05:32:00) ?? (03/06/2011 21:38:00) ?? Comment2 Sliding Scale Sliding Scale Sliding Scale *NA* *NA* *NA* (03/07/2011 05:32:00) ?? (03/06/2011 21:38:00) ?? (03/06/2011 06:33:00) ?? 1Interpretive Data: Upper Reportable Limit: 200 mg/dL.2Interpretive Data: Upper Reportable Limit: 200 mg/dL.3Interpretive Data: Upper Reportable Limit: 200 mg/dL.URINALYSIS Most recent to oldest [Reference Range]: 1 2 3 UA Turbidity [>Clear] Clear ? (03/01/2011 15:38:00) ?? UA Color [>Yellow] Yellow ? *NA* (03/01/2011 15:38:00) ?? UA pH [5.0-8.0] 5.5 ? (03/01/2011 15:38:00) ?? UA Spec Grav [<<=1.030] 1.009 ? (03/01/2011 15:38:00) ?? UA Glucose [>Negative mg/dL] Negative mg/dL ? *NA* (03/01/2011 15:38:00) ?? UA Blood [>Negative] Negative ? (03/01/2011 15:38:00) ?? UA Ketones [>Negative mg/dL] Negative mg/dL ? *NA* (03/01/2011 15:38:00) ?? UA Protein [>Negative mg/dL] 10 mg/dL ? *ABN* (03/01/2011 15:38:00) ?? UA Urobilinogen [0.1-1.0 mg/dL] <=1.0 mg/dL ? *NA* (03/01/2011 15:38:00) ?? UA Bili [>Negative] Negative ? *NA* (03/01/2011 15:38:00) ?? UA Leuk Est [>Negative] Negative ? (03/01/2011 15:38:00) ?? UA Nitrite [>Negative] Negative ? (03/01/2011 15:38:00) ?? UA WBC [0-5 /HPF] <1 /HPF ? (03/01/2011 15:38:00) ?? UA Sq Epi [>Few /LPF] Moderate /LPF ? *ABN* (03/01/2011 15:38:00) ?? UA Hyal Cast [0-2 /LPF] 1 /LPF ? (03/01/2011 15:38:00) ?? UA Mucus [>None Seen /LPF] Few /LPF ? *NA* (03/01/2011 15:38:00) ?? CHEMISTRY Most recent to oldest [Reference 1 2 3 Range]: Sodium Lvl [135-145 mEq/L] 144 mEq/L 143 mEq/L ?? (03/05/2011 02:36:00) ?? (02/27/2011 03:43:00) ?? Potassium Lvl [3.5-5.1 mEq/L] 3.8 mEq/L 3.8 mEq/L ?? (03/05/2011 02:36:00) ?? (02/27/2011 03:43:00) ?? Chloride Lvl [95-109 mEq/L] 107 mEq/L 105 mEq/L ?? (03/05/2011 02:36:00) ?? (02/27/2011 03:43:00) ?? CO2 [24-32 mEq/L] 25 mEq/L 28 mEq/L ?? (03/05/2011 02:36:00) ?? (02/27/2011 03:43:00) ?? AGAP [10.0-20.0 mEq/L] 15.8 mEq/L 13.8 mEq/L ?? (03/05/2011 02:36:00) ?? (02/27/2011 03:43:00) ?? Creatinine Lvl [0.5-1.4 mg/dL] 0.9 mg/dL 0.7 mg/dL ?? (03/05/2011 02:36:00) ?? (02/27/2011 03:43:00) ?? eGFR >60 4 ? *NA* (03/05/2011 02:36:00) ?? BUN [7-22 mg/dL] 16 mg/dL 10 mg/dL ?? (03/05/2011 02:36:00) ?? (02/27/2011 03:43:00) ?? B/C Ratio [6-25] 14 ? (02/27/2011 03:43:00) ?? Glucose Lvl 77 mg/dL 5 119 mg/dL 6 ?? *NA* *NA* (03/05/2011 02:36:00) ?? (02/27/2011 03:43:00) ?? Total Protein [6.4-8.4 g/dL] 5.0 g/dL ? *LOW* (02/27/2011 03:43:00) ?? Albumin Lvl [3.5-5.0 g/dL] 2.2 g/dL ? *LOW* (02/27/2011 03:43:00) ?? Globulin [2.0-4.0 g/dL] 2.8 g/dL ? (02/27/2011 03:43:00) ?? A/G Ratio [0.7-1.6] 0.8 ? (02/27/2011 03:43:00) ?? Calcium Lvl [8.5-10.5 mg/dL] 8.4 mg/dL 8.4 mg/dL ?? *LOW* *LOW* (03/05/2011 02:36:00) ?? (02/27/2011 03:43:00) ?? ALT [0-65 U/L] 24 U/L ? (02/27/2011 03:43:00) ?? AST [0-37 U/L] 21 U/L ? (02/27/2011 03:43:00) ?? Alk Phos [39-136 U/L] 98 U/L ? (02/27/2011 03:43:00) ?? Bili Total [0.2-1.3 mg/dL] 0.3 mg/dL ? (02/27/2011 03:43:00) ?? 4Result Comment: Expected eGFR for >20 yr. age group: >=60 ml/min/1.73 sq m The eGFR calculation is not valid in or for persons < 18 years of age. From National Kid[employer] Disease Education Program (NKDEP)5Interpretive Data: Reference Ranges : 0 - 7 days : 41 - 90 mg/dL7 days - 150 yrs : 70 - 99 mg/ dL (fasting), based on the clinical recommendations of the [place] [employer].6Interpretive Data: Reference Ranges : 0 - 7 days : 41 - 90 mg/ dL7 days - 150 yrs : 70 - 99 mg/dL (fasting), based on the clinical recommendations of the [place] [employer].HEMATOLOGY Most recent to oldest 1 2 3 [Reference Range]: WBC [3.7-10.4 K/CMM] 12.7 K/CMM 12.4 K/CMM 12.7 K/CMM *HI* *HI* *HI* (03/05/2011 02:36:00) ?? (03/03/2011 05:21:00) ?? (03/02/2011 05:03:00) ?? RBC [4.20-5.40 M/CMM] 3.08 M/CMM 3.25 M/CMM 3.23 M/CMM *LOW* *LOW* *LOW* (03/05/2011 02:36:00) ?? (03/03/2011 05:21:00) ?? (03/02/2011 05:03:00) ?? Hgb [12.0-16.0 g/dL] 9.9 g/dL 10.4 g/dL 10.3 g/dL *LOW* *LOW* *LOW* (03/05/2011 02:36:00) ?? (03/03/2011 05:21:00) ?? (03/02/2011 05:03:00) ?? Hct [36.0-48.0 %] 28.5 % 30.8 % 30.5 % *LOW* *LOW* *LOW* (03/05/2011 02:36:00) ?? (03/03/2011 05:21:00) ?? (03/02/2011 05:03:00) ?? MCV [81.0-99.0 fL] 92.6 fL 94.6 fL 94.5 fL (03/05/2011 02:36:00) ?? (03/03/2011 05:21:00) ?? (03/02/2011 05:03:00) ?? MCH [27.0-31.0 pg] 32.0 pg 31.8 pg 31.8 pg *HI* *HI* *HI* (03/05/2011 02:36:00) ?? (03/03/2011 05:21:00) ?? (03/02/2011 05:03:00) ?? MCHC [32.0-36.0 g/dL] 34.6 g/dL 33.6 g/dL 33.6 g/dL (03/05/2011 02:36:00) ?? (03/03/2011 05:21:00) ?? (03/02/2011 05:03:00) ?? RDW [11.5-14.5 %] 16.5 % 16.4 % 16.0 % *HI* *HI* *HI* (03/05/2011 02:36:00) ?? (03/03/2011 05:21:00) ?? (03/02/2011 05:03:00) ?? Platelet [133-450 K/CMM] 221 K/CMM 270 K/CMM 283 K/CMM (03/05/2011 02:36:00) ?? (03/03/2011 05:21:00) ?? (03/02/2011 05:03:00) ?? MPV [7.4-10.4 fL] 9.1 fL 9.4 fL 9.1 fL (03/05/2011 02:36:00) ?? (03/03/2011 05:21:00) ?? (03/02/2011 05:03:00) ?? Segs [45.0-75.0 %] 45.6 % 40.0 % 56.6 % (03/05/2011 02:36:00) ?? *LOW* (02/27/2011 03:43:00) ?? (02/28/2011 03:19:00) ?? Lymphocytes [20.0-40.0 %] 38.5 % 47.3 % 30.8 % (03/05/2011 02:36:00) ?? *HI* (02/27/2011 03:43:00) ?? (02/28/2011 03:19:00) ?? Monocytes [2.0-12.0 %] 10.4 % 8.9 % 8.3 % (03/05/2011 02:36:00) ?? (02/28/2011 03:19:00) ?? (02/27/2011 03:43:00) ?? Eosinophils [0.0-4.0 %] 3.5 % 2.8 % 3.1 % (03/05/2011 02:36:00) ?? (02/28/2011 03:19:00) ?? (02/27/2011 03:43:00) ?? Basophils [0.0-1.0 %] 2.0 % 1.0 % 1.2 % *HI* (02/28/2011 03:19:00) ?? *HI* (03/05/2011 02:36:00) ?? (02/27/2011 03:43:00) ?? Segs-Bands # [1.5-8.1 K/CMM] 5.8 K/CMM 4.8 K/CMM 6.0 K/CMM (03/05/2011 02:36:00) ?? (02/28/2011 03:19:00) ?? (02/27/2011 03:43:00) ?? Lymphocytes # [1.0-5.5 4.9 K/CMM 5.7 K/CMM 3.3 K/CMM K/CMM] (03/05/2011 02:36:00) ?? *HI* (02/27/2011 03:43:00) ?? (02/28/2011 03:19:00) ?? Monocytes # [0.0-0.8 K/CMM] 1.3 K/CMM 1.1 K/CMM 0.9 K/CMM *HI* *HI* *HI* (03/05/2011 02:36:00) ?? (02/28/2011 03:19:00) ?? (02/27/2011 03:43:00) ?? Eosinophils # [0.0-0.5 0.4 K/CMM 0.3 K/CMM 0.3 K/CMM K/CMM] (03/05/2011 02:36:00) ?? (02/28/2011 03:19:00) ?? (02/27/2011 03:43: 00) ?? Basophils # [0.0-0.2 K/CMM] 0.2 K/CMM 0.1 K/CMM 0.1 K/CMM (03/05/2011 02:36:00) ?? (02/28/2011 03:19:00) ?? (02/27/2011 03:43:00) ?? Microbiology Reports PROCEDURE:Culture: Urine STATUS: Auth (Verified) BODY SITE: ?? COLLECTED DATE/TIME: 03/01/2011 15:38:00 SOURCE: Urine, Clean Catch FREE TEXT SOURCE: CUP FINAL REPORTS Final ReportNo Growth At 2 DaysPRELIMINARY REPORTS* Preliminary ReportNo Growth After Overnight Incubation
--- OUTSIDE RECORDS SUMMARY | 2018-09-07 21:58 | XMS REPORT | CCD ---
:1945 Author Organization [facility] Care Team Providers Name Role Phone Jaja Worrell Consulting Provider Unavailable JOSUÉ Simon Consulting Provider Unavailable Paty Anne Consulting Provider Unavailable Alison Melchor Consulting Provider Jenn Toussaint Consulting Provider Unavailable Wilmer Cifuentes Consulting Provider Unavailable Sharon Kimbrough Consulting Provider Unavailable Dutch Sánchez Consulting Provider Unavailable Simran Joyce Consulting Provider Unavailable Taj So Consulting Provider Unavailable Alexandre Skaggs Consulting Provider Unavailable Nitza Lee Consulting Provider Unavailable June Mares Consulting Provider Jenn Soliman Consulting Provider Unavailable Isabelle Lopez Consulting Provider Unavailable Ada Noe Consulting Provider Zenon Pruitt Consulting Provider Unavailable Crispin Hazel Consulting Provider Nevin Diallo Consulting Provider Unavailable Chaitanya Crowe Consulting Provider Garth Salinas Consulting Provider Unavailable Teri Smith Consulting Provider Unavailable Solange Rizvi Consulting Provider Unavailable Jessica Dotson Consulting Provider Caryn Reece Consulting Provider Ayesha Tyler Consulting Provider Unavailable Vasyl Pickett Consulting Provider Sherry Smith Consulting Provider Unavailable Ivory Aaron Consulting Provider Unavailable Kacie Freeman Consulting Provider Unavailable Ava Banda Consulting Provider Unavailable Janice Serrano Consulting Provider Christopher Roman Consulting Provider Unavailable Naty Bustamante Consulting Provider Unavailable Ramos Fuentes Referring Provider Simran Wagoner Consulting Provider Unavailable Rosalba Meléndez Consulting Provider Unavailable Yulissa Quintero Consulting Provider Unavailable Lulu Nicole Consulting Provider [phone] Linnea Villaseñor Consulting Provider [phone] Burak Chen Consulting Provider Unavailable Rabia Luther Consulting Provider Unavailable Alanis Hair Consulting Provider Unavailable Dina Casey Consulting Provider Unavailable Nina Atkinson Consulting Provider Unavailable Linda Pace Consulting Provider Octavio Wu Consulting Provider Unavailable Lisandro Gonzales Consulting Provider Unavailable Sylvia Aguilar Consulting Provider Unavailable Dominick Armstrong Consulting Provider Unavailable Sharon Arellano Consulting Provider Unavailable Qi Carter Consulting Provider Unavailable Elvis Dhillon Consulting Provider Unavailable Nila Navarro Consulting Provider Unavailable Capri Whitfield Consulting Provider Unavailable David Borjas Consulting Provider Unavailable Laure Sahu Consulting Provider June Demarco Consulting Provider Unavailable Edy Soliman Consulting Provider Unavailable Majo Rush Consulting Provider Unavailable Sharon Alvarez Consulting Provider Unavailable Skyler Treviño Consulting Provider Unavailable Lauren White Consulting Provider Unavailable Eva Rubi Consulting Provider Unavailable Tabatha Carlos Consulting Provider Unavailable Reed Coffey Consulting Provider Unavailable Malia Clemons Consulting Provider Unavailable Jaswant Rizvi Consulting Provider Unavailable Aron Renae Consulting Provider Unavailable Kayley Antunez Consulting Provider Unavailable Bella Rizvi Consulting Provider [id number] Marilee Peoples Consulting Provider Magnolia Holcomb Consulting Provider Diya Soto Consulting Provider Unavailable Juliana Daily Consulting Provider Unavailable Belle Whatley Consulting Provider Unavailable Ellyn Franklin Consulting Provider Unavailable Tal Bowman Consulting Provider Unavailable Leanne Maurer Consulting Provider Unavailable Juana Friend Consulting Provider Unavailable Katie Christianson Consulting Provider Val Walker Consulting Provider Ananya Esquivel Consulting Provider Unavailable Sami Fishman Consulting Provider Fransisca Gallo Consulting Provider [phone] Amanda Marin Consulting Provider Unavailable Cira Archuleta Consulting Provider Unavailable Ellyn Rangel Consulting Provider Unavailable SYSTEM, SYSTEM Consulting Provider Unavailable Diomedes Townsend Consulting Provider Ale Barrera Consulting Provider Unavailable Mercy Arita Consulting Provider Nabila Pope Consulting Provider Unavailable Keagan Mathur Consulting Provider Unavailable Chel Ochoa Consulting Provider Unavailable Bonnie Mathew Consulting Provider Gigi Johnson Consulting Provider Unavailable Rudolph Valladares Consulting Provider Unavailable Linnea Villaseñor Consulting Provider Unavailable Jose M Tomlinson Consulting Provider Unavailable Alanis Garza Consulting Provider Rios Huff Consulting Provider Unavailable Sylvia Fernandez Consulting Provider Unavailable Tavia Villalba Consulting Provider [phone] Elvi Whatley Consulting Provider Unavailable Liberty Wei Consulting Provider Unavailable Tami Graham Consulting Provider Unavailable Belle Nesbitt Consulting Provider Unavailable Claudy Salazar Consulting Provider Unavailable Yennifer Mcdermott Consulting Provider [phone] Shirley Leos Consulting Provider [phone] Diamante Lubin Consulting Provider Jolanta Hernandez Consulting Provider Caroline Abreu Consulting Provider Unavailable Ena Rivera Consulting Provider Unavailable Estefania Vazquez Consulting Provider Unavailable Raiza Brennan Consulting Provider Unavailable Cehlsea Bunn Consulting Provider Unavailable Chel Schmidt Consulting Provider Dayna Oviedo Consulting Provider [phone] Ricky Cordova Consulting Provider Unavailable Angie Holland Consulting Provider Unavailable Starr Reece Consulting Provider Joe Meléndez Consulting Provider Unavailable Isaiah Herman Consulting Provider Unavailable Slime Salguero Consulting Provider Unavailable Luis Flynn (Bladimir) Gamaliel Consulting Provider [phone] Skyler Maldondao Consulting Provider Unavailable Marley Villarreal Consulting Provider Unavailable Susan Wadsworth Consulting Provider Manasa Mcgarry Consulting Provider Unavailable Albaro White Consulting Provider Unavailable Sky Rizvi Consulting Provider Unavailable Reagan Lloyd Consulting Provider Carlos Galvan Consulting Provider Unavailable Jessica Giordano Consulting Provider [phone] Natalie Bell Consulting Provider Unavailable Blas Rg Consulting Provider Keagan Khan Consulting Provider Eze Orourke (Edy) Consulting Provider [phone] Meena Alan Consulting Provider Alvin Strickland Consulting Provider Xochilt Mccullough Consulting [...] Medication Instructions Start Date End Date Status insulin isophane-NPH 10 unit, 0.1 mL, Route: 02/21/2011 02/26/2011 Discontinued SUB-Q, Drug form: INJ, BID, Start date: 02/21/11 17:00:00, Stop date: 03/23/11 9:00:00 cefepime 2 gm, Route: IVPB, Drug 02/20/2011 02/26/2011 Discontinued form: INJ, ABXQ8H, Start date: 02/20/11 18:00:00, Stop date: 03/22/11 10:00:00 heparin 5000 units/mL 5000 units, SUB-Q, Q8H, 02/26/2011 ?? Ordered injectable solution 30 doses or times, Substitution Allowed, SOLN Lasix 40 mg oral tablet 40 mg, 1 tab, PO, Daily, 02/26/2011 ?? Ordered 30 tab, Substitution Allowed, TAB docusate sodium 100 mg 100 mg, 1 cap, PO, BID, 02/26/2011 ?? Ordered oral capsule 30 cap, Substitution Allowed, CAP ciprofloxacin 250 mg oral 750 mg, 3 tab, PO, Q12H, 02/26/2011 ?? Ordered tablet 30 doses or times, Substitution Allowed, TAB Maxipime 2 g injection 2 gm, IV, Q8H, 1 doses 02/26/2011 03/26/2011 Ordered or times, Substitution Allowed calcium carbonate 500 mg 500 mg, 1 tab, PO, TID, 02/26/2011 ?? Ordered oral tablet, chewable 30 tab, Substitution Allowed, CHEWTAB ciprofloxacin 400 mg, 200 mL, Route: 02/19/2011 02/20/2011 Discontinued IVPB, Drug form: INJ, [id number], Priority: NOW, Start date: 02/19/11 16:10:00, Duration: 30 day, Stop date: 03/21/11 4:10:00 calcium chloride 1,000 mg, 10 mL, Route: 02/19/2011 02/19/2011 Completed IV, Drug form: INJ, ONCE, Start date: 02/19/11 21:18:00, Stop date: 02/19/11 21:18:00 ciprofloxacin 750 mg, 3 tab, Route: 02/23/2011 02/26/2011 Discontinued PO, Drug form: TAB, Q12H, Priority: Routine, Start date: 02/23/11 13:00:00, Duration: 30 day, Stop date: 03/25/11 11:00:00 calcium carbonate 500 mg, 1 tab, Route: 02/24/2011 02/26/2011 Discontinued PO, Drug form: TAB, TID, Start date: 02/24/11 13:00:00, Duration: 7 day, Stop date: 03/03/11 9:00:00 Fleet Enema 133 ml, Route: CA, Drug 02/24/2011 02/24/2011 Completed Form: JEANNIE, ONCE, Start date: 02/24/11 14:38:00, Stop date: 02/24/11 14:38:00 bisacodyl 10 mg, 1 supp, Route: 02/24/2011 02/24/2011 Completed CA, Drug form: SUPP, ONCE, Start date: 02/24/11 14:38:00, Stop date: 02/24/11 14:38:00 Crestor 20 mg, 2 tab, Route: PO, 02/20/2011 02/26/2011 Discontinued Drug form: TAB, Daily, Start date: 02/20/11 9:00:00, Duration: 30 day, Stop date: 03/21/11 9:00:00 flumazenil 0.2 mg, 2 mL, Route: 02/19/2011 02/26/2011 Discontinued IVP, Drug form: INJ, PRN, PRN Other -See Comment, Initial dose, Start date: 02/19/11 14:18:00, Duration: 30 day, Stop date: 03/21/11 14:17:00 naloxone 0.04 mg, 0.1 mL, Route: 02/19/2011 02/20/2011 Completed IVP, Drug form: INJ, Q2MIN, PRN Narcotic Reversal, Start date: 02/19/11 14:18:00, Duration: 8 doses or times, Stop date: 02/20/11 14:18:00 hydromorphone 0.3 mg, 0.15 mL, Route: 02/19/2011 02/20/2011 Discontinued IVP, Drug form: INJ, Q5Min, PRN Pain, Start date: 02/19/11 14:18:00, Duration: 5 doses or times, Stop date: Limited # of times ondansetron 4 mg, 2 mL, Route: IVP, 02/19/2011 02/26/2011 Discontinued Drug form: INJ, ONCE, PRN Nausea & Vomiting, Start date: 02/19/11 14:18:00 insulin regular human 7 unit, 0.07 mL, Route: 02/19/2011 02/26/2011 Discontinued recombinant 100 units/mL SUB-Q, Drug form: SOLN, injectable solution PRN, PRN Abnormal Lab Result, Start date: 02/19/11 15:51:00, Duration: 30 day, Stop date: 03/21/11 15:50:00 insulin regular human 5 unit, 0.05 mL, Route: 02/19/2011 02/26/2011 Discontinued recombinant 100 units/mL SUB-Q, Drug form: SOLN, injectable solution PRN, PRN Abnormal Lab Result, Start date: 02/19/11 15:51:00, Duration: 30 day, Stop date: 03/21/11 15:50:00 labetalol 5 mg, 1 mL, Route: IVP, 02/19/2011 02/20/2011 Completed Drug form: INJ, Q5Min, PRN Elevated BP, Start date: 02/19/11 14:18:00, Duration: 5 doses or times, Stop date: 02/20/11 0:00:00 Insulin regular 100 unit + 100 mL, Rate: Start at 02/19/2011 02/19/2011 Discontinued Sodium Chloride 0.9% 0.05 units/kg/hour-, (titrate) 100 mL Route: IVPB, Total Volume: 100, Duration: 30 day, Stop date: 03/21/11 15:56:00, Replace Every: 24 hr Dextrose 50% Syringe 6.25 gm, 12.5 mL, Route: 02/19/2011 02/19/2011 Discontinued IVP, Drug Form: INJ, PRN, PRN Abnormal Lab Result, Start date: 02/19/11 15:51:00, Duration: 30 day, Stop date: 03/21/11 15:50:00 Dextrose 50% Syringe 25 gm, 50 mL, Route: 02/19/2011 02/19/2011 Discontinued IVP, Drug Form: INJ, PRN, PRN Abnormal Lab Result, Start date: 02/19/11 15:51:00, Duration: 30 day, Stop date: 03/21/11 15:50:00 Dextrose 50% Syringe 25 gm, 50 mL, Route: 02/19/2011 02/19/2011 Discontinued IVP, Drug Form: INJ, PRN, PRN Abnormal Lab Result, Start date: 02/19/11 15:51:00, Duration: 30 day, Stop date: 03/21/11 15:50:00 Dextrose 50% Syringe 12.5 gm, 25 mL, Route: 02/19/2011 02/19/2011 Discontinued IVP, Drug Form: INJ, PRN, PRN Abnormal Lab Result, Start date: 02/19/11 15:51:00, Duration: 30 day, Stop date: 03/21/11 15:50:00 insulin regular human 3 unit, 0.03 mL, Route: 02/19/2011 02/26/2011 Discontinued recombinant 100 units/mL SUB-Q, Drug form: SOLN, injectable solution PRN, PRN Abnormal Lab Result, Start date: 02/19/11 15:51:00, Duration: 30 day, Stop date: 03/21/11 15:50:00 Dextrose 50% Syringe 6.25 gm, 12.5 mL, Route: 02/19/2011 02/26/2011 Discontinued IVP, Drug Form: INJ, PRN, PRN Abnormal Lab Result, Start date: 02/19/11 15:51:00, Duration: 30 day, Stop date: 03/21/11 15:50:00 Dextrose 50% Syringe 12.5 gm, 25 mL, Route: 02/19/2011 02/19/2011 Discontinued IVP, Drug Form: INJ, PRN, PRN Abnormal Lab Result, Start date: 02/19/11 15:51:00, Duration: 30 day, Stop date: 03/21/11 15:50:00 Saline Flush 0.9% 5 ml, Route: IVP, Drug 02/19/2011 02/26/2011 Discontinued Form: INJ, PRN, PRN Line Flush, Start date: 02/19/11 15:51:00, Duration: 30 day, Stop date: 03/21/11 15:50:00 morphine Sulfate 2 mg, 1 mL, Route: IVP, 02/19/2011 02/26/2011 Discontinued Drug form: INJ, Q1H, PRN Pain Score 7-10, Start date: 02/19/11 15:51:00, Duration: 30 day, Stop date: 03/21/11 15:50:00 levetiracetam 500 mg, 1 tab, Route: 02/19/2011 02/26/2011 Discontinued PO, Drug form: TAB, Q12H, Start date: 02/19/11 21:00:00, Duration: 30 day, Stop date: 03/21/11 9:00:00 Prinivil 10 mg, 1 tab, Route: PO, 02/19/2011 02/26/2011 Discontinued Drug form: TAB, BID, Start date: 02/19/11 17:00:00, Duration: 30 day, Stop date: 03/20/11 17:00:00 potassium chloride 20 mEq, 100 mL, Route: 02/20/2011 02/20/2011 Completed IVPB, Q2H, Start date: 02/20/11 4:00:00, Duration: 2 doses or times, Stop date: 02/20/11 6:00:00 vancomycin 1 gm, Route: IVPB, Drug 02/20/2011 02/20/2011 Discontinued form: INJ, ABXQ8H, Priority: NOW, Start date: 02/20/11 6:44:00, Duration: 30 day, Stop date: 03/21/11 22:44:00 heparin 5000 units/mL 5,000 unit, 1 mL, Route: 02/20/2011 02/26/2011 Discontinued injectable solution SUB-Q, Drug form: INJ, Q8H, Start date: 02/20/11 16:00:00, Duration: 30 day, Stop date: 03/22/11 8:00:00 Lasix 40 mg oral tablet 40 mg, 1 tab, Route: PO, 02/20/2011 02/26/2011 Discontinued Drug form: TAB, Daily, Start date: 02/20/11 17:00:00, Stop date: 03/22/11 9:00:00 [place] 7.5/325 oral tablet 1 tab, Route: PO, Drug 02/20/2011 02/26/2011 Discontinued Form: TAB, Q4H, PRN Pain, Start date: 02/20/11 11:07:00, Duration: 30 day, Stop date: 03/22/11 11:06:00 Tylenol 650 mg, 2 tab, Route: 02/19/2011 02/20/2011 Discontinued PO, Drug form: TAB, Q4H, PRN Fever, Start date: 02/19/11 21:13:00, Duration: 30 day, Stop date: 03/21/11 21:12:00 [place] 5/325 oral tablet 1 tab, Route: PO, Drug 02/19/2011 02/26/2011 Discontinued Form: TAB, Q4H, PRN Pain, Start date: 02/19/11 16:14:00, Duration: 30 day, Stop date: 03/21/11 16:13:00 [place]is[place] Thyroid 120 mg, 2 tab, Route: 02/20/2011 02/26/2011 Discontinued PO, Drug form: TAB, Before Breakfast, Start date: 02/20/11 7:30:00, Duration: 30 day, Stop date: 03/21/11 7:30:00 hydrALAZINE 25 mg oral 25 mg, 1 tab, Route: PO, 02/19/2011 02/26/2011 Discontinued tablet Drug form: TAB, Q8H, Start date: 02/19/11 17:00:00, Stop date: 03/21/11 8:00:00 lisinopril 10 mg, 1 tab, Route: PO, 02/24/2011 02/24/2011 Completed Drug form: TAB, ONCE, Priority: NOW, Start date: 02/24/11 11:02:00, Stop date: 02/24/11 11:02:00 Sodium Chloride 0.9% IV 1,000 mL, Rate: 75 02/19/2011 02/26/2011 Discontinued 1,000 mL ml/hr, Infuse over: 13.3 hr, Route: IV, Total Volume: 1,000, Start date: 02/19/11 15:56:00, Stop date: 03/21/11 15:55:00 lisinopril 10 mg, Route: PO, ONCE, 02/24/2011 02/24/2011 Discontinued Start date: 02/24/11 11:01:00, Stop date: 02/24/11 11:01:00 magnesium citrate 300 ml, Route: PO, Drug 02/24/2011 02/24/2011 Completed Form: LIQ, ONCE, Start date: 02/24/11 13:03:00, Stop date: 02/24/11 13:03:00 Nisula Thyroid 60 mg oral 120 mg, 2 tab, PO, 02/26/2011 ?? Ordered tablet Before Breakfast, 30 tab, Substitution Allowed, TAB senna 8.6 mg oral tablet 8.6 mg, 1 tab, PO, 02/26/2011 ?? Ordered Daily, 30 tab, Substitution Allowed, Maintenance, TAB Crestor 10 mg oral tablet 20 mg, 2 tab, PO, Daily, 02/26/2011 ?? Ordered 30 tab, Substitution Allowed, TAB acetaminophen 650 mg, 20.3 mL, Route: 02/19/2011 02/26/2011 Discontinued PO, Drug form: LIQ, Q4H, PRN Fever, Start date: 02/19/11 20:04:00, Duration: 30 day, Stop date: 03/21/11 20:03:00 Prinivil 10 mg oral tablet 10 mg, 1 tab, PO, BID, 02/26/2011 ?? Ordered 30 tab, Substitution Allowed, TAB levetiracetam 500 mg oral 500 mg, 1 tab, PO, Q12H, 02/26/2011 ?? Ordered tablet 30 tab, Substitution Allowed, TAB hydrALAZINE 25 mg oral 25 mg, 1 tab, PO, Q8H, 02/26/2011 ?? Ordered tablet 30 tab, Substitution Allowed, TAB magnesium sulfate 2 gm, 50 mL, Route: 02/20/2011 02/20/2011 Completed IVPB, Drug form: INJ, Q2H, Start date: 02/20/11 5:00:00, Duration: 2 doses or times, Stop date: 02/20/11 7:00:00 magnesium sulfate 4 gm, 100 mL, Route: 02/20/2011 02/20/2011 Completed IVPB, Drug form: INJ, ONCE, Start date: 02/20/11 4:00:00, Stop date: 02/20/11 4:00:00 senna 8.6 mg, 1 tab, Route: 02/20/2011 02/26/2011 Discontinued PO, Drug Form: TAB, Daily, Start date: 02/20/11 9:00:00, Duration: 30 day, Stop date: 03/21/11 9:00:00 docusate sodium 100 mg 100 mg, 1 cap, Route: 02/19/2011 02/26/2011 Discontinued oral capsule PO, Drug form: CAP, BID, Start date: 02/19/11 17:00:00, Duration: 30 day, Stop date: 03/21/11 9:00:00 Insulin regular 3 unit, 0.03 mL, Route: 02/23/2011 02/26/2011 Discontinued SUB-Q, Drug form: SOLN, TID-Before Meals, Start date: 02/23/11 16:30:00, Duration: 30 day, Stop date: 03/25/11 11:30:00 vancomycin 2 gm, Route: IVPB, ONCE, 02/19/2011 02/19/2011 Completed Priority: STAT, Start date: 02/19/11 16:02:00, Stop date: 02/19/11 16:02:00 labetalol 5 mg, 1 mL, Route: IV, 02/20/2011 02/26/2011 Discontinued Drug form: INJ, Q10Min, PRN Hypertension, Start date: 02/20/11 1:56:00, Duration: 30 day, Stop date: 03/22/11 1:55:00 calcium carbonate 500 mg, 1 tab, Route: 02/21/2011 02/26/2011 Discontinued CHEW, Drug form: CHEWTAB, TID, PRN Indigestion, Start date: 02/21/11 14:26:00, Duration: 30 day, Stop date: 03/23/11 14:25:00 NS 500 mL 500 mL, Rate: 1,000 ml/hr, Infuse over: 0.5 hr, Route: IV, Total Volume: 500, Start date: 02/19/11 22:07:00, Duration: 1 doses or times, Stop date: 02/19/11 22:36:00, Bolus Dose 02/19/2011 02/19/2011 Completed Bolus Dose magnesium oxide 400 mg, 1 tab, Route: 02/21/2011 02/26/2011 Completed PO, Drug form: TAB, BID, Start date: 02/21/11 17:00:00, Duration: 5 day, Stop date: 02/26/11 9:00:00 Vital Signs Most recent to oldest 1 2 3 [Reference Range]: Height 149.86 cm ? (02/19/2011 16:02:00) ?? Temperature Oral 98.2 DegF 98.9 DegF 98.7 DegF [96.4-99.1 DegF] (02/26/2011 13:09:00) ?? (02/26/2011 07:09:00) ?? (2010 03:19:00) ?? Systolic Blood Pressure 154 mmHg 153 mmHg 149 mmHg [90-140 mmHg] *HI* *HI* *HI* (02/26/2011 13:09:00) ?? (02/26/2011 07:09:00) ?? (02/26/2011 03:19:00) ?? Diastolic Blood Pressure 54 mmHg 60 mmHg 62 mmHg [60-90 mmHg] *LOW* (02/26/2011 07:09:00) ?? (02/26/2011 03:19:00) ?? (02/26/2011 13:09:00) ?? Respiratory Rate [14-20 18 BRMIN 18 BRMIN 20 BRMIN BRMIN] (02/26/2011 13:09:00) ?? (02/26/2011 07:09:00) ?? (02/26/2011 03:19: 00) ?? Peripheral Pulse Rate 90 bpm 93 bpm 95 bpm [60-100 bpm] (02/26/2011 13:09:00) ?? (02/26/2011 07:09:00) ?? (02/25/2011 16:36:00) ?? Weight 100.000 kg 100.000 kg ?? (02/19/2011 20:09:00) ?? (02/19/2011 16:02:00) ?? Results BODY FLUIDS Most recent to oldest [Reference Range]: 1 2 3 Glucose CSF [45-80 mg/dL] 70 mg/dL ? (02/19/2011 11:00:00) ?? Protein CSF [15-45 mg/dL] 39 mg/dL ? (02/19/2011 11:00:00) ?? Tube Num CSF xxxxxxx ? (02/19/2011 11:00:00) ?? Color CSF [>Colorless] Light Red ? *ABN* (02/19/2011 11:00:00) ?? Clarity CSF [>Clear] Slight ? *ABN* (02/19/2011 11:00:00) ?? Supernat CSF [>Colorless] Colorless ? (02/19/2011 11:00:00) ?? RBC CSF [0-0 /mm3] 2885 /mm3 ? *HI* (02/19/2011 11:00:00) ?? WBC CSF [0-5 /mm3] 1 /mm3 ? (02/19/2011 11:00:00) ?? BEDSIDE GLUCOSE TESTING Most recent to oldest 1 2 3 [Reference Range]: Gluc POC Lifscn [65-110 207 mg/dL 1 155 mg/dL 2 140 mg/dL 3 mg/dL] *HI* *HI* *HI* (02/26/2011 17:17:00) ?? (02/26/2011 13:30:00) ?? (02/26/2011 06:15:00) ?? Comment1 Notify RN/MD Notify RN/MD Notify RN/MD *NA* *NA* *NA* (02/26/2011 17:17:00) ?? (02/26/2011 13:30:00) ?? (02/25/2011 21:30:00) ?? 1Interpretive Data: Upper Reportable Limit: 200 mg/dL.2Interpretive Data: Upper Reportable Limit: 200 mg/dL.3Interpretive Data: Upper Reportable Limit: 200 mg/dL.BLOOD BANK RESULTS Most recent to oldest [Reference Range]: 1 2 3 ABO/Rh O NEG ? *Unknown* (02/19/2011 10:33:00) ?? Antibody Scrn Negative ? (02/19/2011 10:33:00) ?? CHEMISTRY Most recent to oldest 1 2 3 [Reference Range]: Sodium Lvl [135-145 mEq/L] 142 mEq/L 142 mEq/L 138 mEq/L (02/26/2011 01:52:00) ?? (02/24/2011 03:43:00) ?? (02/21/2011 02:22:00) ?? Potassium Lvl [3.5-5.1 3.6 mEq/L 3.7 mEq/L 4.9 mEq/L mEq/L] (02/26/2011 01:52:00) ?? (02/24/2011 03:43:00) ?? (02/21/2011 02:22: 00) ?? Chloride Lvl [95-109 105 mEq/L 106 mEq/L 107 mEq/L mEq/L] (02/26/2011 01:52:00) ?? (02/24/2011 03:43:00) ?? (02/21/2011 02:22: 00) ?? CO2 [24-32 mEq/L] 25 mEq/L 24 mEq/L 19 mEq/L (02/26/2011 01:52:00) ?? (02/24/2011 03:43:00) ?? *LOW* (02/21/2011 02:22:00) ?? AGAP [10.0-20.0 mEq/L] 15.6 mEq/L 15.7 mEq/L 16.9 mEq/L (02/26/2011 01:52:00) ?? (02/24/2011 03:43:00) ?? (02/21/2011 02:22:00) ?? Creatinine Lvl [0.5-1.4 0.5 mg/dL 0.6 mg/dL 0.4 mg/dL mg/dL] (02/26/2011 01:52:00) ?? (02/24/2011 03:43:00) ?? *LOW* (02/21/2011 02:22:00) ?? BUN [7-22 mg/dL] 9 mg/dL 12 mg/dL 6 mg/dL (02/26/2011 01:52:00) ?? (02/24/2011 03:43:00) ?? *LOW* (02/21/2011 02:22:00) ?? B/C Ratio [6-25] 20 ? (02/19/2011 16:20:00) ?? Glucose Lvl 120 mg/dL 4 89 mg/dL 5 154 mg/dL 6 *NA* *NA* *NA* (02/26/2011 01:52:00) ?? (02/24/2011 03:43:00) ?? (02/21/2011 02:22:00) ?? Total Protein [6.4-8.4 4.8 g/dL ? g/dL] *LOW* (02/19/2011 16:20:00) ?? Albumin Lvl [3.5-5.0 g/dL] 2.3 g/dL ? *LOW* (02/19/2011 16:20:00) ?? Globulin [2.0-4.0 g/dL] 2.5 g/dL ? (02/19/2011 16:20:00) ?? A/G Ratio [0.7-1.6] 0.9 ? (02/19/2011 16:20:00) ?? Calcium Lvl [8.5-10.5 7.9 mg/dL 7.9 mg/dL 7.7 mg/dL mg/dL] *LOW* *LOW* *LOW* (02/26/2011 01:52:00) ?? (02/24/2011 03:43:00) ?? (02/21/2011 02:22:00) ?? Phosphorus [2.5-4.5 mg/dL] 3.7 mg/dL 3.4 mg/dL ?? (02/21/2011 02:22:00) ?? (02/20/2011 00:50:00) ?? Magnesium Lvl [1.8-2.4 1.9 mg/dL 1.7 mg/dL 3.1 mg/dL mg/dL] (02/24/2011 03:43:00) ?? *LOW* *HI* (02/21/2011 02:22:00) ?? (02/20/2011 09:50:00) ?? ALT [0-65 U/L] 67 U/L ? *HI* (02/19/2011 16:20:00) ?? AST [0-37 U/L] 66 U/L ? *HI* (02/19/2011 16:20:00) ?? Alk Phos [39-136 U/L] 155 U/L ? *HI* (02/19/2011 16:20:00) ?? Bili Total [0.2-1.3 mg/dL] 0.8 mg/dL ? (02/19/2011 16:20:00) ?? Lactic Acid Lvl [0.5-2.2 1.1 mMol/L ? mMol/L] (02/19/2011 16:00:00) ?? Ca Ion mgdL [4.65-5.20 4.40 mg/dL 5.08 mg/dL 4.12 mg/dL mg/dL] *LOW* (02/20/2011 00:50:00) ?? *LOW* (02/21/2011 02:22:00) ?? (02/19/2011 16:20:00) ?? Ca Ion [1.16-1.30 mMol/L] 1.10 mMol/L 1.27 mMol/L 1.03 mMol/L *LOW* (02/20/2011 00:50:00) ?? *LOW* (02/21/2011 02:22:00) ?? (02/19/2011 16:20:00) ?? Ca Norm [1.16-1.30 mMol/L] 1.16 mMol/L 1.28 mMol/L 1.02 mMol/L (02/21/2011 02:22:00) ?? (02/20/2011 00:50:00) ?? *LOW* (02/19/2011 16:20:00) ?? Ca Norm mgdL [4.65-5.20 4.64 mg/dL 5.12 mg/dL 4.08 mg/dL mg/dL] *LOW* (02/20/2011 00:50:00) ?? *LOW* (02/21/2011 02:22:00) ?? (02/19/2011 16:20:00) ?? POC A Hct [36.0-48.0 %] 29.0 % 29.0 % 34.0 % *LOW* *LOW* *LOW* (02/19/2011 12:32:00) ?? (02/19/2011 10:35:00) ?? (02/19/2011 09:06:00) ?? POC A Ca Ion [1.16-1.30 1.08 mMol/L 1.10 mMol/L 1.10 mMol/L mMol/L] *LOW* *LOW* *LOW* (02/19/2011 12:32:00) ?? (02/19/2011 10:35:00) ?? (02/19/2011 09:06:00) ?? POC A K [3.5-5.1 mEq/L] 3.3 mEq/L 3.2 mEq/L 3.7 mEq/L *LOW* *LOW* (02/19/2011 09:06:00) ?? (02/19/2011 12:32:00) ?? (02/19/2011 10:35:00) ?? POC A Source ART ART ART *NA* *NA* *NA* (02/19/2011 12:32:00) ?? (02/19/2011 10:35:00) ?? (02/19/2011 09:06:00) ?? POC A Temp 37.0 DegC 37.0 DegC 37.0 DegC *NA* *NA* *NA* (02/19/2011 12:32:00) ?? (02/19/2011 10:35:00) ?? (02/19/2011 09:06:00) ?? POC A pH [7.35-7.45] 7.33 7.35 7.43 *LOW* *LOW* (02/19/2011 09:06:00) ?? (02/19/2011 12:32:00) ?? (02/19/2011 10:35:00) ?? POC A PCO2 [35-45 mmHg] 41 mmHg 41 mmHg 34 mmHg (02/19/2011 12:32:00) ?? (02/19/2011 10:35:00) ?? *LOW* (02/19/2011 09:06:00) ?? POC A PO2 [80-100 mmHg] 433 mmHg 404 mmHg 381 mmHg *HI* *HI* *HI* (02/19/2011 12:32:00) ?? (02/19/2011 10:35:00) ?? (02/19/2011 09:06:00) ?? POC A HCO3 [22-26 mMol/L] 22 mMol/L 23 mMol/L 23 mMol/L (02/19/2011 12:32:00) ?? (02/19/2011 10:35:00) ?? (02/19/2011 09:06:00) ?? POC A BE [-2-2 mMol/L] -4 mMol/L -3 mMol/L -1 mMol/L *LOW* *LOW* (02/19/2011 09:06:00) ?? (02/19/2011 12:32:00) ?? (02/19/2011 10:35:00) ?? POC A O2 Sat [95.0-100.0 100.0 % 100.0 % 100.0 % %] (02/19/2011 12:32:00) ?? (02/19/2011 10:35:00) ?? (02/19/2011 09:06:00) ? ? POC A Glu [65-110 mg/dL] 109 mg/dL 107 mg/dL 118 mg/dL (02/19/2011 12:32:00) ?? (02/19/2011 10:35:00) ?? *HI* (02/19/2011 09:06:00) ?? POC A LA [0.5-2.2 mMol/L] 0.6 mMol/L 0.7 mMol/L 1.0 mMol/L (02/19/2011 12:32:00) ?? (02/19/2011 10:35:00) ?? (02/19/2011 09:06:00) ?? POC A Na [135-145 mEq/L] 140 mEq/L 140 mEq/L 136 mEq/L (02/19/2011 12:32:00) ?? (02/19/2011 10:35:00) ?? (02/19/2011 09:06:00) ?? 4Interpretive Data: Reference Ranges : 0 - 7 days : 41 - 90 mg/dL7 days - 150 yrs : 70 - 99 mg/dL (fasting), based on the clinical recommendations of the [employer].5Interpretive Data: Reference Ranges : 0 - 7 days : 41 - 90 mg/dL7 days - 150 yrs : 70 - 99 mg/dL (fasting), based on the clinical recommendations of the [employer].6Interpretive Data : Reference Ranges : 0 - 7 days : 41 - 90 mg/dL7 days - 150 yrs : 70 - 99 mg/dL (fasting), based on the clinical recommendations of the [employer].HEMATOLOGY Most recent to oldest 1 2 3 [Reference Range]: WBC [3.7-10.4 K/CMM] 9.0 K/CMM 6.9 K/CMM 7.4 K/CMM (02/21/2011 02:22:00) ?? (02/20/2011 00:50:00) ?? (02/19/2011 16:20:00) ?? RBC [4.20-5.40 M/CMM] 3.38 M/CMM 3.19 M/CMM 3.40 M/CMM *LOW* *LOW* *LOW* (02/21/2011 02:22:00) ?? (02/20/2011 00:50:00) ?? (02/19/2011 16:20:00) ?? Hgb [12.0-16.0 g/dL] 10.5 g/dL 10.3 g/dL 11.0 g/dL *LOW* *LOW* *LOW* (02/26/2011 01:52:00) ?? (02/24/2011 03:43:00) ?? (02/21/2011 02:22:00) ?? Hct [36.0-48.0 %] 31.2 % 30.7 % 32.4 % *LOW* *LOW* *LOW* (02/26/2011 01:52:00) ?? (02/24/2011 03:43:00) ?? (02/21/2011 02:22:00) ?? MCV [81.0-99.0 fL] 96.0 fL 95.8 fL 95.7 fL (02/21/2011 02:22:00) ?? (02/20/2011 00:50:00) ?? (02/19/2011 16:20:00) ?? MCH [27.0-31.0 pg] 32.7 pg 32.2 pg 32.2 pg *HI* *HI* *HI* (02/21/2011 02:22:00) ?? (02/20/2011 00:50:00) ?? (02/19/2011 16:20:00) ?? MCHC [32.0-36.0 g/dL] 34.1 g/dL 33.7 g/dL 33.6 g/dL (02/21/2011 02:22:00) ?? (02/20/2011 00:50:00) ?? (02/19/2011 16:20:00) ?? RDW [11.5-14.5 %] 16.2 % 16.5 % 16.7 % *HI* *HI* *HI* (02/21/2011 02:22:00) ?? (02/20/2011 00:50:00) ?? (02/19/2011 16:20:00) ?? Platelet [133-450 K/CMM] 166 K/CMM 175 K/CMM 173 K/CMM (02/21/2011 02:22:00) ?? (02/20/2011 00:50:00) ?? (02/19/2011 16:20:00) ?? MPV [7.4-10.4 fL] 7.8 fL 7.8 fL 7.8 fL (02/21/2011 02:22:00) ?? (02/20/2011 00:50:00) ?? (02/19/2011 16:20:00) ?? Segs [45.0-75.0 %] 57.5 % 63.4 % 69.8 % (02/21/2011 02:22:00) ?? (02/20/2011 00:50:00) ?? (02/19/2011 16:20:00) ?? Lymphocytes [20.0-40.0 %] 25.7 % 20.5 % 15.6 % (02/21/2011 02:22:00) ?? (02/20/2011 00:50:00) ?? *LOW* (02/19/2011 16:20:00) ?? Monocytes [2.0-12.0 %] 9.6 % 9.3 % 8.7 % (02/21/2011 02:22:00) ?? (02/20/2011 00:50:00) ?? (02/19/2011 16:20:00) ?? Eosinophils [0.0-4.0 %] 6.9 % 6.4 % 5.3 % *HI* *HI* *HI* (02/21/2011 02:22:00) ?? (02/20/2011 00:50:00) ?? (02/19/2011 16:20:00) ?? Basophils [0.0-1.0 %] 0.3 % 0.4 % 0.6 % (02/21/2011 02:22:00) ?? (02/20/2011 00:50:00) ?? (02/19/2011 16:20:00) ?? Segs-Bands # [1.5-8.1 5.2 K/CMM 4.4 K/CMM 5.1 K/CMM K/CMM] (02/21/2011 02:22:00) ?? (02/20/2011 00:50:00) ?? (02/19/2011 16:20: 00) ?? Lymphocytes # [1.0-5.5 2.3 K/CMM 1.4 K/CMM 1.1 K/CMM K/CMM] (02/21/2011 02:22:00) ?? (02/20/2011 00:50:00) ?? (02/19/2011 16:20: 00) ?? Monocytes # [0.0-0.8 K/CMM] 0.9 K/CMM 0.6 K/CMM 0.6 K/CMM *HI* (02/20/2011 00:50:00) ?? (02/19/2011 16:20:00) ?? (02/21/2011 02:22:00) ?? Eosinophils # [0.0-0.5 0.6 K/CMM 0.4 K/CMM 0.4 K/CMM K/CMM] *HI* (02/20/2011 00:50:00) ?? (02/19/2011 16:20:00) ?? (02/21/2011 02:22:00) ?? Basophils # [0.0-0.2 K/CMM] 0.0 K/CMM 0.0 K/CMM 0.0 K/CMM (02/21/2011 02:22:00) ?? (02/20/2011 00:50:00) ?? (02/19/2011 16:20:00) ?? Sed Rate [0-20 mm/hr] 105 mm/hr ? *HI* (02/24/2011 03:43:00) ?? PT [12.0-14.7 seconds] 13.9 seconds ? (02/19/2011 16:20:00) ?? INR [0.85-1.17] 1.07 7 ? (02/19/2011 16:20:00) ?? PTT [22.9-35.8 seconds] 29.4 seconds 8 ? (02/19/2011 16:20:00) ?? 7Interpretive Data: RECOMMENDED RANGES FOR PROTIME INR: 2.0-3.0 for most medical and surgical thromboembolic states. 2.5-3.5 for artificial heart valves and recurrent embolism.INR SHOULD BE USED ONLY FOR PATIENTS ON STABLE ANTICOAGULANT THERAPY.8Interpretive Data: Heparin Therapeutic Range: 57 - 92 Seconds Microbiology Reports PROCEDURE:Culture: Resistant Acinetobacter Screen STATUS: Auth (Verified) BODY SITE: ?? COLLECTED DATE/TIME: 02/19/2011 16:00:00 SOURCE: Nasal Wash FREE TEXT SOURCE: SWAB FINAL REPORTS Final ReportNo Acinetobacter IsolatedPRELIMINARY REPORTS Preliminary ReportCulture In Progress PROCEDURE:Culture: MRSA STATUS: Auth (Verified) BODY SITE: ?? COLLECTED DATE/TIME: 02/19/2011 16:00:00 SOURCE: Nasal Swab FREE TEXT SOURCE: SWAB FINAL REPORTS Final ReportNo Methicillin Resistant Staphylococcus Aureus Isolated PROCEDURE:Culture: AFB w/Smear STATUS: In Progress BODY SITE: ?? COLLECTED DATE/TIME: 02/19/2011 13:28:00 SOURCE: Tissue FREE TEXT SOURCE: CUP STAIN REPORTS Stain ReportNo Acid Fast Bacilli Seen On Smear PROCEDURE:Culture: Anaerobic STATUS: Auth (Verified) BODY SITE: ?? COLLECTED DATE/TIME: 02/19/2011 13:28:00 SOURCE: Tissue FREE TEXT SOURCE: CUP FINAL REPORTS Final ReportNo Anaerobes Isolated After 5 Days PRELIMINARY REPORTS Preliminary ReportCulture In Progress Preliminary ReportNo Anaerobes Isolated After 2 Days PROCEDURE:Culture: Aspirate/Body Fluid/Tissue STATUS: Auth (Verified) BODY SITE: Skin COLLECTED DATE/TIME: 02/19/2011 13:28:00 SOURCE: Tissue FREE TEXT SOURCE: [place] STAT [id number], CUP FINAL REPORTS Final ReportFew Pseudomonas aeruginosaPRELIMINARY REPORTS Preliminary ReportFew Gram Negative Rods, Non-Lactose Fermenters Preliminary ReportFew Pseudomonas aeruginosaSTAIN REPORTS * Stain ReportFew Wbc'S; No Organisms SeenSUSCEPTIBILITY REPORT PA Antibiotic INTERP MARIA TERESA Amikacin S 4 Cefepime S 2 Cefotaxime R >16 Ceftazidime S 2 Ceftriaxone R >16 Ciprofloxacin S <=0.25 Gentamicin S 2 Meropenem S <=1 Piperacillin/Tazobactam I 32/4 Tobramycin S <=1 PROCEDURE:Culture: Fungal w/Smear STATUS: In Progress BODY SITE: Skin COLLECTED DATE/TIME: 02/19/2011 13:28:00 SOURCE: Tissue FREE TEXT SOURCE: CUP STAIN REPORTS Stain ReportNo Yeast Or Fungal Elements Seen PROCEDURE:Culture: CSF w/Gram Stain STATUS: Auth (Verified) BODY SITE: ?? COLLECTED DATE/TIME: 02/19/2011 11:23:00 SOURCE: CSF FREE TEXT SOURCE: [place] STAT [id number]. cup FINAL REPORTS Final ReportNo Growth At 3 DaysPRELIMINARY REPORTS* Preliminary ReportNo Growth At 1 Day Preliminary ReportNo Growth At 2 DaysSTAIN REPORTS Stain ReportRare Wbc'S; No Organisms Seen
--- OUTSIDE RECORDS SUMMARY | 2018-09-07 21:59 | XMS REPORT | CCD ---
:1945 Author Organization [facility] Care Team Providers Name Role Phone Kasi Moses Consulting Provider Unavailable JOSUÉ Simon Consulting Provider Unavailable Yoandy Wellington Consulting Provider Sharon Kimbrough Consulting Provider Unavailable Abby Olivia Consulting Provider [phone] Rossana Gomes Consulting Provider Ronald Hernandes Consulting Provider Unavailable Geovanni Navarrete Consulting Provider Unavailable Shirley Davis Consulting Provider Unavailable Breanna Pelayo Consulting Provider Unavailable Garth Salinas Consulting Provider Unavailable Mari Henning Consulting Provider Unavailable Kelly Mcintosh Consulting Provider Rashaad Whitley Consulting Provider Unavailable Vasyl Pickett Consulting Provider Ramos Fuentes Consulting Provider Brittany Viveros Consulting Provider Unavailable Loli Kate Consulting Provider Unavailable Sharon Bradley Consulting Provider Unavailable Nyasia Mcdaniels Consulting Provider Unavailable Carolina Elder Consulting Provider Unavailable Emily Stout Consulting Provider Unavailable ChartSarcenio, Login Consulting Provider Unavailable Kira Sharpe Consulting Provider [phone] Eduardo Gallo Consulting Provider Odalys Vang Consulting Provider Unavailable Kaela Woods Consulting Provider Unavailable Vicky Urbina My Consulting Provider Michelle Landers Consulting Provider Unavailable Shirley José Consulting Provider Soco Taylor Consulting Provider Unavailable Jaswant Rizvi Consulting Provider Unavailable Deb Bazzi Consulting Provider Unavailable Robert Pritchett Consulting Provider Unavailable Saundra Zambrano Consulting Provider [phone] Do, Sa D Consulting Provider Erica Soto Consulting Provider Darcy Rosales Consulting Provider Unavailable Martha Dumont Consulting Provider Unavailable Socorro Oakley Consulting Provider Unavailable Mahendra Rowley Consulting Provider Unavailable Idania Antonio Consulting Provider Unavailable Zackery Leos Consulting Provider [phone] SYSTEM, SYSTEM Consulting Provider Unavailable Juan J Clay Consulting Provider Unavailable Andre Palomo Consulting Provider Unavailable Qamar Leos Consulting Provider [phone] Jacki Wadsworth Consulting Provider Unavailable Clari Islas Consulting Provider [id number] Anju Bhatti Consulting Provider Unavailable Caden Dang Consulting Provider Unavailable Liberty Wei Consulting Provider Unavailable Noreen Egan Consulting Provider Unavailable Alicja Ramirez Consulting Provider [id number] Rosanna Barber Consulting Provider [phone] Megha Reyes Consulting Provider Caroline Abreu Consulting Provider Unavailable Carly Wadsworth Consulting Provider Unavailable Layla Ortiz Consulting Provider Unavailable PCP, Pt doesnt Remember Remember Consulting Provider Unavailable Kelvin Dorado Consulting Provider [phone] Sylvia Berg Consulting Provider Unavailable Joe Meléndez Consulting Provider Unavailable Sylvia Miguel Consulting Provider Caden Pires Consulting Provider Destiny Rizvi Consulting Provider Breanna Hussein Consulting Provider Unavailable Leslee Renee Consulting Provider Unavailable Yadira Florian Consulting Provider Unavailable Glendy Munoz Consulting Provider Unavailable Reagan Lloyd Consulting Provider Molly Foley Consulting Provider Unavailable Phillip Headley Consulting Provider Fide Dean Consulting Provider Raj Soto Consulting Provider Unavailable Xochilt Mccullough Consulting Provider Unavailable Allen Jim Consulting Provider Allergies, Adverse Reactions, Alerts Substance Reaction Status aspirin severe chest pain?? Active erythromycin ?? Active penicillins rash?? Active phenobarbital rash?? Active Silk Tape takes skin off?? Canceled Problem List Condition Effective Dates Status Altered mental status ?? Active Craniotomy ?? Active DM - Diabetes mellitus 02/18/2011 Active HTN - Hypertension ?? Active Itching ?? Active Lethargic < 03/14/2011 Inactive Meningioma of brain ?? Active Pain ?? Active Visual disturbance ?? Active Medications Medication Instructions Start Date End Date Status metoprolol 25 mg oral 25 mg, 1 tab, PO, BID, 03/25/2011 ?? Ordered tablet 60 tab, Substitution Allowed, TAB heparin 5,000 unit, 1 mL, 03/22/2011 03/25/2011 Discontinued Route: SUB-Q, Drug form: INJ, Q12H, Start date: 03/22/11 21:00:00, Duration: 30 day, Stop date: 04/21/11 9:00:00 Mullens Thyroid 120 mg, 2 tab, Route: 03/24/2011 03/25/2011 Discontinued PO, Drug form: TAB, Before Breakfast, Start date: 03/24/11 8:30:00, Duration: 30 day, Stop date: 04/23/11 7:30:00 ondansetron 4 mg, 2 mL, Route: IVP, 03/22/2011 03/22/2011 Completed Drug form: INJ, ONCE, Priority: STAT, Start date: 03/22/11 10:12:00, Stop date: 03/22/11 10:12:00 morphine Sulfate 4 mg, 1 mL, Route: IVP, 03/22/2011 03/22/2011 Completed Drug form: INJ, ONCE, Priority: STAT, Start date: 03/22/11 10:11:00, Stop date: 03/22/11 10:11:00 insulin aspart 3 unit, 0.03 mL, Route: 03/22/2011 03/25/2011 Discontinued SUB-Q, Drug form: SOLN, TID-Before Meals, PRN Blood Glucose Results, Start date: 03/22/11 16:28:00, Duration: 30 day, Stop date: 04/21/11 16:27:00 insulin aspart 5 unit, 0.05 mL, Route: 03/22/2011 03/25/2011 Discontinued SUB-Q, Drug form: SOLN, TID-Before Meals, PRN Blood Glucose Results, Start date: 03/22/11 16:28:00, Duration: 30 day, Stop date: 04/21/11 16:27:00 insulin aspart 4 unit, 0.04 mL, Route: 03/22/2011 03/25/2011 Discontinued SUB-Q, Drug form: SOLN, TID-Before Meals, PRN Blood Glucose Results, Start date: 03/22/11 16:28:00, Duration: 30 day, Stop date: 04/21/11 16:27:00 insulin aspart 1 unit, 0.01 mL, Route: 03/22/2011 03/25/2011 Discontinued SUB-Q, Drug form: SOLN, TID-Before Meals, PRN Blood Glucose Results, Start date: 03/22/11 16:28:00, Duration: 30 day, Stop date: 04/21/11 16:27:00 insulin aspart 2 unit, 0.02 mL, Route: 03/22/2011 03/25/2011 Discontinued SUB-Q, Drug form: SOLN, TID-Before Meals, PRN Blood Glucose Results, Start date: 03/22/11 16:28:00, Duration: 30 day, Stop date: 04/21/11 16:27:00 insulin aspart 4 unit, 0.04 mL, Route: 03/22/2011 03/25/2011 Discontinued SUB-Q, Drug form: SOLN, Bedtime, PRN Blood Glucose Results, Start date: 03/22/11 16:28:00, Duration: 30 day, Stop date: 04/21/11 16:27:00 insulin aspart 3 unit, 0.03 mL, Route: 03/22/2011 03/25/2011 Discontinued SUB-Q, Drug form: SOLN, Bedtime, PRN Blood Glucose Results, Start date: 03/22/11 16:28:00, Duration: 30 day, Stop date: 04/21/11 16:27:00 Dextrose 50% Syringe 25 gm, 50 mL, Route: 03/22/2011 03/25/2011 Discontinued IVP, Drug Form: INJ, PRN, PRN Blood Glucose Results, Start date: 03/22/11 16:28:00, Duration: 30 day, Stop date: 04/21/11 15:27:00 glucagon 1 mg, Route: IM, Drug 03/22/2011 03/25/2011 Discontinued form: PDR/INJ, PRN, PRN Blood Glucose Results, Priority: STAT, Start date: 03/22/11 16:28:00, Duration: 30 day, Stop date: 04/21/11 15:27:00 Dextrose 50% Syringe 12.5 gm, 25 mL, Route: 03/22/2011 03/25/2011 Discontinued IVP, Drug Form: INJ, PRN, PRN Blood Glucose Results, Start date: 03/22/11 16:28:00, Duration: 30 day, Stop date: 04/21/11 15:27:00 insulin aspart 1 unit, 0.01 mL, Route: 03/22/2011 03/25/2011 Discontinued SUB-Q, Drug form: SOLN, Bedtime, PRN Blood Glucose Results, Start date: 03/22/11 16:28:00, Duration: 30 day, Stop date: 04/21/11 16:27:00 insulin aspart 2 unit, 0.02 mL, Route: 03/22/2011 03/25/2011 Discontinued SUB-Q, Drug form: SOLN, Bedtime, PRN Blood Glucose Results, Start date: 03/22/11 16:28:00, Duration: 30 day, Stop date: 04/21/11 16:27:00 1/2NS + KCL 20mEq/L 1000ml 500 mL, Rate: 50 ml/hr, 03/22/2011 03/23/2011 Discontinued (Premix) 500 mL Infuse over: 10 hr, Route: IV, Total Volume: 500, Start date: 03/22/11 17:00:00, Duration: 30 day, Stop date: 04/21/11 16:59:00 diphenhydrAMINE 25 mg, 1 cap, Route: 03/23/2011 03/25/2011 Discontinued PO, Drug form: CAP, Q6H, PRN Itching, Start date: 03/23/11 7:37:00, Duration: 30 day, Stop date: 04/22/11 7:36:00 potassium chloride 40 mEq, 2 tab, Route: 03/23/2011 03/23/2011 Completed PO, Drug form: ERTAB, ONCE, Start date: 03/23/11 19:12:00, Stop date: 03/23/11 19:12:00 [place] 5/325 oral tablet 1 tab, Route: PO, Drug 03/22/2011 03/25/2011 Discontinued Form: TAB, Q4H, PRN Pain, Start date: 03/22/11 17:33:00, Duration: 30 day, Stop date: 04/21/11 17:32:00 1/2NS 1,000 mL 1,000 mL, Rate: 50 03/22/2011 03/22/2011 Discontinued ml/hr, Infuse over: 20 hr, Route: IV, Total Volume: 1,000, Start date: 03/22/11 16:57:00, Duration: 30 day, Stop date: 04/21/11 16:56:00 hydrALAZINE 10 mg, 0.5 mL, Route: 03/24/2011 03/25/2011 Discontinued IV, Drug form: INJ, Q4H, PRN Elevated BP, Start date: 03/24/11 18:14:00, Duration: 30 day, Stop date: 04/23/11 18:13:00, Systolic Blood pressure greater than 160 mmHg magnesium sulfate 2 gm, 50 mL, Route: 03/24/2011 03/24/2011 Completed IVPB, Drug form: INJ, ONCE, Total dose=2 gm, Start date: 03/24/11 17:59:00, Duration: 1 doses or times, Stop date: 03/24/11 17:59:00 metoprolol 25 mg, 1 tab, Route: 03/25/2011 03/25/2011 Discontinued PO, Drug form: TAB, BID, Start date: 03/25/11 9:00:00, Duration: 30 day, Stop date: 04/23/11 17:00:00 senna 8.6 mg oral tablet 8.6 mg, 1 tab, Route: 03/23/2011 03/25/2011 Discontinued PO, Drug Form: TAB, Daily, Start date: 03/23/11 9:00:00, Duration: 30 day, Stop date: 04/21/11 9:00:00 Crestor 20 mg, 2 tab, Route: 03/22/2011 03/25/2011 Discontinued PO, Drug form: TAB, Bedtime, Start date: 03/22/11 21:00:00, Duration: 30 day, Stop date: 04/20/11 21:00:00 Mullens Thyroid 120 mg, 0.5 tab, Route: 03/23/2011 03/24/2011 Discontinued PO, Drug form: TAB, Before Breakfast, Start date: 03/23/11 7:30:00, Duration: 30 day, Stop date: 04/21/11 7:30:00 magnesium oxide 400 mg, 1 tab, Route: 03/22/2011 03/25/2011 Discontinued PO, Drug form: TAB, BID, Start date: 03/22/11 17:00:00, Duration: 30 day, Stop date: 04/21/11 9:00:00 metoprolol 12.5 mg, 1 ea, Route: 03/22/2011 03/24/2011 Discontinued PO, Drug form: TAB, BID, Start date: 03/22/11 17:00:00, Duration: 30 day, Stop date: 04/21/11 9:00:00 Keppra 500 mg oral tablet 500 mg, 1 tab, Route: 03/22/2011 03/25/2011 Discontinued PO, Drug form: TAB, Q12H, Start date: 03/22/11 21:00:00, Duration: 30 day, Stop date: 04/21/11 9:00:00 Novolin N 10 unit, 0.1 mL, Route: 03/24/2011 03/25/2011 Discontinued SUB-Q, Drug form: INJ, BID, Start date: 03/24/11 9:00:00, Duration: 30 day, Stop date: 04/22/11 17:00:00 docusate sodium 100 mg oral 100 mg, 1 cap, Route: 03/22/2011 03/25/2011 Discontinued capsule PO, Drug form: CAP, BID, Start date: 03/22/11 17:00:00, Duration: 30 day, Stop date: 04/21/11 9:00:00 calcium carbonate 500 mg, 1 tab, Route: 03/22/2011 03/25/2011 Discontinued PO, Drug form: CHEWTAB, TID, PRN as needed for indigestion, Start date: 03/22/11 16:19:00, Duration: 30 day, Stop date: 04/21/11 16:18:00 NS 1,000 mL 1,000 mL, Rate: 100 03/24/2011 03/25/2011 Discontinued ml/hr, Infuse over: 10 hr, Route: IV, Total Volume: 1,000, Start date: 03/24/11 17:56:00, Duration: 30 day, Stop date: 04/23/11 17:55:00 Vital Signs Most recent to oldest 1 2 3 [Reference Range]: Height 149.86 cm 149.86 cm ?? (03/22/2011 12:13:00) ?? (03/22/2011 05:32:00) ?? Temperature Oral 97.6 DegF 97.8 DegF 97.7 DegF [96.4-99.1 DegF] (03/25/2011 15:59:00) ?? (03/25/2011 08:00:00) ?? (2010 03:48:00) ?? Systolic Blood Pressure 151 mmHg 163 mmHg 156 mmHg [90-140 mmHg] *HI* *HI* *HI* (03/25/2011 15:59:00) ?? (03/25/2011 08:00:00) ?? (03/25/2011 03:48:00) ?? Diastolic Blood Pressure 60 mmHg 82 mmHg 68 mmHg [60-90 mmHg] (03/25/2011 15:59:00) ?? (03/25/2011 08:00:00) ?? (03/25/2011 03:48:00) ?? Respiratory Rate [14-20 20 BRMIN 20 BRMIN 20 BRMIN BRMIN] (03/25/2011 15:59:00) ?? (03/25/2011 08:00:00) ?? (03/25/2011 03:48: 00) ?? Peripheral Pulse Rate 87 bpm 98 bpm 95 bpm [60-100 bpm] (03/25/2011 15:59:00) ?? (03/25/2011 08:00:00) ?? (03/25/2011 03:48:00) ?? Weight 90.909 kg 90.909 kg ?? (03/22/2011 12:13:00) ?? (03/22/2011 05:32:00) ?? Results BEDSIDE GLUCOSE TESTING Most recent to oldest 1 2 3 [Reference Range]: Gluc POC Lifscn [65-110 148 mg/dL 1 140 mg/dL 2 137 mg/dL 3 mg/dL] *HI* *HI* *HI* (03/25/2011 16:51:00) ?? (03/25/2011 11:52:00) ?? (03/25/2011 07:45:00) ?? Comment1 Notify RN/MD Notify RN/MD Notify RN/MD *NA* *NA* *NA* (03/25/2011 16:51:00) ?? (03/25/2011 11:52:00) ?? (03/25/2011 07:45:00) ?? 1Interpretive Data: Upper Reportable Limit: 200 mg/dL.2Interpretive Data: Upper Reportable Limit: 200 mg/dL.3Interpretive Data: Upper Reportable Limit: 200 mg/dL.URINALYSIS Most recent to oldest [Reference Range]: 1 2 3 UA Turbidity [>Clear] Slight ? *ABN* (03/22/2011 17:20:00) ?? UA Color [>Yellow] Yellow ? *NA* (03/22/2011 17:20:00) ?? UA pH [5.0-8.0] 5.5 ? (03/22/2011 17:20:00) ?? UA Spec Grav [<<=1.030] 1.016 ? (03/22/2011 17:20:00) ?? UA Glucose [>Negative mg/dL] Negative mg/dL ? *NA* (03/22/2011 17:20:00) ?? UA Blood [>Negative] Moderate ? *ABN* (03/22/2011 17:20:00) ?? UA Ketones [>Negative mg/dL] 10 mg/dL ? *ABN* (03/22/2011 17:20:00) ?? UA Protein [>Negative mg/dL] 200 mg/dL ? *ABN* (03/22/2011 17:20:00) ?? UA Urobilinogen [0.1-1.0 mg/dL] <=1.0 mg/dL ? *NA* (03/22/2011 17:20:00) ?? UA Bili [>Negative] Negative ? *NA* (03/22/2011 17:20:00) ?? UA Leuk Est [>Negative] Negative ? (03/22/2011 17:20:00) ?? UA Nitrite [>Negative] Negative ? (03/22/2011 17:20:00) ?? UA RBC [0-2 /HPF] <1 /HPF ? (03/22/2011 17:20:00) ?? UA Sq Epi [>Few /LPF] Few /LPF ? *NA* (03/22/2011 17:20:00) ?? UA Hyal Cast [0-2 /LPF] 3 /LPF ? *HI* (03/22/2011 17:20:00) ?? UA Amorph Jagruti [>None Seen /HPF] Occasional /HPF ? *NA* (03/22/2011 17:20:00) ?? UA Mucus [>None Seen /LPF] Few /LPF ? *NA* (03/22/2011 17:20:00) ?? CHEMISTRY Most recent to oldest 1 2 3 [Reference Range]: Sodium Lvl [135-145 mEq/L] 140 mEq/L 142 mEq/L 144 mEq/L (03/25/2011 05:30:00) ?? (03/24/2011 05:08:00) ?? (03/23/2011 05:24:00) ?? Potassium Lvl [3.5-5.1 4.1 mEq/L 3.6 mEq/L 3.2 mEq/L mEq/L] (03/25/2011 05:30:00) ?? (03/24/2011 05:08:00) ?? *LOW* (03/23/2011 05:24:00) ?? Chloride Lvl [95-109 mEq/L] 107 mEq/L 109 mEq/L 108 mEq/L (03/25/2011 05:30:00) ?? (03/24/2011 05:08:00) ?? (03/23/2011 05:24:00) ?? CO2 [24-32 mEq/L] 19 mEq/L 21 mEq/L 20 mEq/L *LOW* *LOW* *LOW* (03/25/2011 05:30:00) ?? (03/24/2011 05:08:00) ?? (03/23/2011 05:24:00) ?? AGAP [10.0-20.0 mEq/L] 18.1 mEq/L 15.6 mEq/L 19.2 mEq/L (03/25/2011 05:30:00) ?? (03/24/2011 05:08:00) ?? (03/23/2011 05:24:00) ?? Creatinine Lvl [0.5-1.4 1.7 mg/dL 1.7 mg/dL 1.5 mg/dL mg/dL] *HI* *HI* *HI* (03/25/2011 05:30:00) ?? (03/24/2011 05:08:00) ?? (03/23/2011 05:24:00) ?? BUN [7-22 mg/dL] 21 mg/dL 23 mg/dL 22 mg/dL (03/25/2011 05:30:00) ?? *HI* (03/23/2011 05:24:00) ?? (03/24/2011 05:08:00) ?? B/C Ratio [6-25] 15 ? (03/23/2011 05:24:00) ?? Glucose Lvl 104 mg/dL 4 119 mg/dL 5 97 mg/dL 6 *NA* *NA* *NA* (03/25/2011 05:30:00) ?? (03/24/2011 05:08:00) ?? (03/23/2011 05:24:00) ?? Total Protein [6.4-8.4 5.4 g/dL 5.6 g/dL 4.7 g/dL g/dL] *LOW* *LOW* *LOW* (03/25/2011 05:30:00) ?? (03/24/2011 08:51:00) ?? (03/23/2011 05:24:00) ?? Albumin Lvl [3.5-5.0 g/dL] 2.1 g/dL 2.4 g/dL 1.9 g/dL *LOW* *LOW* *LOW* (03/25/2011 05:30:00) ?? (03/24/2011 08:51:00) ?? (03/23/2011 05:24:00) ?? Globulin [2.0-4.0 g/dL] 3.3 g/dL 3.2 g/dL 2.8 g/dL (03/25/2011 05:30:00) ?? (03/24/2011 08:51:00) ?? (03/23/2011 05:24:00) ?? A/G Ratio [0.7-1.6] 0.6 0.7 0.7 *LOW* (03/24/2011 08:51:00) ?? (03/23/2011 05:24:00) ?? (03/25/2011 05:30:00) ?? Calcium Lvl [8.5-10.5 8.0 mg/dL 7.7 mg/dL 7.8 mg/dL mg/dL] *LOW* *LOW* *LOW* (03/25/2011 05:30:00) ?? (03/24/2011 05:08:00) ?? (03/23/2011 05:24:00) ?? Magnesium Lvl [1.8-2.4 2.4 mg/dL 1.6 mg/dL ?? mg/dL] (03/25/2011 05:30:00) ?? *LOW* (03/24/2011 05:08:00) ?? ALT [0-65 U/L] 131 U/L 192 U/L 194 U/L *HI* *HI* *HI* (03/25/2011 05:30:00) ?? (03/24/2011 08:51:00) ?? (03/23/2011 05:24:00) ?? AST [0-37 U/L] 144 U/L 345 U/L 789 U/L *HI* *HI* *HI* (03/25/2011 05:30:00) ?? (03/24/2011 08:51:00) ?? (03/23/2011 05:24:00) ?? Alk Phos [39-136 U/L] 360 U/L 469 U/L 289 U/L *HI* *HI* *HI* (03/25/2011 05:30:00) ?? (03/24/2011 08:51:00) ?? (03/23/2011 05:24:00) ?? Bili Total [0.2-1.3 mg/dL] 0.3 mg/dL 0.4 mg/dL 1.0 mg/dL (03/25/2011 05:30:00) ?? (03/24/2011 08:51:00) ?? (03/23/2011 05:24:00) ?? Bili Direct [0.0-0.3 mg/dL] 0.1 mg/dL 0.2 mg/dL 0.1 mg/dL (03/25/2011 05:30:00) ?? (03/24/2011 08:51:00) ?? (03/22/2011 09:40:00) ?? Bili Indirect [0.0-1.0 0.2 mg/dL 0.2 mg/dL 0.2 mg/dL mg/dL] (03/25/2011 05:30:00) ?? (03/24/2011 08:51:00) ?? (03/22/2011 09:40: 00) ?? Amylase Lvl [25-115 U/L] 36 U/L ? (03/23/2011 05:24:00) ?? Lipase Lvl [73-393 U/L] 242 U/L ? (03/23/2011 05:24:00) ?? T4 Free [0.76-1.46 ng/dL] 1.67 ng/dL ? *HI* (03/22/2011 07:05:00) ?? TSH [0.360-3.740 uIU/mL] 0.044 uIU/mL ? *LOW* (03/22/2011 07:05:00) ?? 4Interpretive Data: Reference Ranges : 0 - 7 days : 41 - 90 mg/dL7 days - 150 yrs : 70 - 99 mg/dL (fasting), based on the clinical recommendations of the [place] [employer].5Interpretive Data: Reference Ranges : 0 - 7 days : 41 - 90 mg/dL7 days - 150 yrs : 70 - 99 mg/dL (fasting), based on the clinical recommendations of the [place] [employer].6Interpretive Data : Reference Ranges : 0 - 7 days : 41 - 90 mg/dL7 days - 150 yrs : 70 - 99 mg/dL (fasting), based on the clinical recommendations of the [place] [employer].HEMATOLOGY Most recent to oldest 1 2 3 [Reference Range]: WBC [3.7-10.4 K/CMM] 10.1 K/CMM 9.7 K/CMM 6.7 K/CMM (03/25/2011 05:30:00) ?? (03/24/2011 05:08:00) ?? (03/23/2011 05:24:00) ?? RBC [4.20-5.40 M/CMM] 4.03 M/CMM 3.67 M/CMM 3.60 M/CMM *LOW* *LOW* *LOW* (03/25/2011 05:30:00) ?? (03/24/2011 05:08:00) ?? (03/23/2011 05:24:00) ?? Hgb [12.0-16.0 g/dL] 12.5 g/dL 11.6 g/dL 11.2 g/dL (03/25/2011 05:30:00) ?? *LOW* *LOW* (03/24/2011 05:08:00) ?? (03/23/2011 05:24:00) ?? Hct [36.0-48.0 %] 36.8 % 33.2 % 32.7 % (03/25/2011 05:30:00) ?? *LOW* *LOW* (03/24/2011 05:08:00) ?? (03/23/2011 05:24:00) ?? MCV [81.0-99.0 fL] 91.4 fL 90.5 fL 91.0 fL (03/25/2011 05:30:00) ?? (03/24/2011 05:08:00) ?? (03/23/2011 05:24:00) ?? MCH [27.0-31.0 pg] 31.0 pg 31.6 pg 31.0 pg (03/25/2011 05:30:00) ?? *HI* (03/23/2011 05:24:00) ?? (03/24/2011 05:08:00) ?? MCHC [32.0-36.0 g/dL] 33.9 g/dL 34.9 g/dL 34.1 g/dL (03/25/2011 05:30:00) ?? (03/24/2011 05:08:00) ?? (03/23/2011 05:24:00) ?? RDW [11.5-14.5 %] 15.0 % 15.1 % 14.8 % *HI* *HI* *HI* (03/25/2011 05:30:00) ?? (03/24/2011 05:08:00) ?? (03/23/2011 05:24:00) ?? Platelet [133-450 K/CMM] 157 K/CMM 169 K/CMM 189 K/CMM (03/25/2011 05:30:00) ?? (03/24/2011 05:08:00) ?? (03/23/2011 05:24:00) ?? MPV [7.4-10.4 fL] 10.0 fL 9.5 fL 9.8 fL (03/25/2011 05:30:00) ?? (03/24/2011 05:08:00) ?? (03/23/2011 05:24:00) ?? Segs [45.0-75.0 %] 42.0 % 42.6 % 39.0 % *LOW* *LOW* *LOW* (03/25/2011 05:30:00) ?? (03/24/2011 05:08:00) ?? (03/23/2011 05:24:00) ?? Bands [0.0-11.0 %] 1.0 % ? (03/23/2011 05:24:00) ?? Lymphocytes [20.0-40.0 %] 31.4 % 28.5 % 31.0 % (03/25/2011 05:30:00) ?? (03/24/2011 05:08:00) ?? (03/23/2011 05:24:00) ?? Atypical Lymphs [<<=0.0 %] 0.0 % ? (03/23/2011 05:24:00) ?? Monocytes [2.0-12.0 %] 9.1 % 8.6 % 13.0 % (03/25/2011 05:30:00) ?? (03/24/2011 05:08:00) ?? *HI* (03/23/2011 05:24:00) ?? Eosinophils [0.0-4.0 %] 16.0 % 19.0 % 15.0 % *HI* *HI* *HI* (03/25/2011 05:30:00) ?? (03/24/2011 05:08:00) ?? (03/23/2011 05:24:00) ?? Basophils [0.0-1.0 %] 1.5 % 1.3 % 1.0 % *HI* *HI* (03/23/2011 05:24:00) ?? (03/25/2011 05:30:00) ?? (03/24/2011 05:08:00) ?? Segs-Bands # [1.5-8.1 4.3 K/CMM 4.1 K/CMM 2.7 K/CMM K/CMM] (03/25/2011 05:30:00) ?? (03/24/2011 05:08:00) ?? (03/23/2011 05:24: 00) ?? Lymphocytes # [1.0-5.5 3.2 K/CMM 2.8 K/CMM 2.1 K/CMM K/CMM] (03/25/2011 05:30:00) ?? (03/24/2011 05:08:00) ?? (03/23/2011 05:24: 00) ?? Monocytes # [0.0-0.8 K/CMM] 0.9 K/CMM 0.8 K/CMM 0.9 K/CMM *HI* (03/24/2011 05:08:00) ?? *HI* (03/25/2011 05:30:00) ?? (03/23/2011 05:24:00) ?? Eosinophils # [0.0-0.5 1.6 K/CMM 1.8 K/CMM 1.0 K/CMM K/CMM] *HI* *HI* *HI* (03/25/2011 05:30:00) ?? (03/24/2011 05:08:00) ?? (03/23/2011 05:24:00) ?? Basophils # [0.0-0.2 K/CMM] 0.1 K/CMM 0.1 K/CMM 0.1 K/CMM (03/25/2011 05:30:00) ?? (03/24/2011 05:08:00) ?? (03/23/2011 05:24:00) ?? Plt Morph Normal ? (03/23/2011 05:24:00) ?? Large Plt [>None Seen] Slight ? *ABN* (03/23/2011 05:24:00) ?? PT [12.0-14.7 seconds] 14.8 seconds ? *HI* (03/24/2011 05:08:00) ?? INR [0.85-1.17] 1.16 7 ? (03/24/2011 05:08:00) ?? PTT [22.9-35.8 seconds] 34.9 seconds 8 ? (03/24/2011 05:08:00) ?? 7Interpretive Data: RECOMMENDED RANGES FOR PROTIME INR: 2.0-3.0 for most medical and surgical thromboembolic states. 2.5-3.5 for artificial heart valves and recurrent embolism.INR SHOULD BE USED ONLY FOR PATIENTS ON STABLE ANTICOAGULANT THERAPY.8Interpretive Data: Heparin Therapeutic Range: 57 - 92 SecondsIMMUNOLOGY Most recent to oldest [Reference 1 2 3 Range]: Prealbumin [18.0-45.0 mg/dL] 10.0 mg/dL ? *LOW* (03/23/2011 05:24:00) ?? Hep Bs Ag [>Negative] Negative See Note 9 ?? *NA* (03/22/2011 09:40:00) ?? (03/24/2011 05:08:00) ?? Hep B Core IgM [>Negative] Negative ? *NA* (03/22/2011 09:40:00) ?? Hep A IgM [>Negative] Negative ? *NA* (03/22/2011 09:40:00) ?? Hep C Ab [>Negative] Negative ? *NA* (03/22/2011 09:40:00) ?? 9Result Comment: QNSTalked to Nyasia Santana will recollect in the [id number] 16:39RG
--- OUTSIDE RECORDS SUMMARY | 2018-09-07 21:59 | XMS REPORT ---
:1945 [facility] Address [address] [place] [address] Dr. Tillman [address] [place] [id number] Care Team Providers Name Role Phone RUMA SANTANA Unavailable Unavailable Problems This patient has no known problems. Allergies, Adverse Reactions, Alerts This patient has no known allergies or adverse reactions. Medications This patient has no known medications. Results Test Description Test Time Test Comments Text Results Atomic Results Result Comments TISSUE EXAM 2017-02-26 15:21:00 Surgical Pathology Report Case: [id number] Authorizing Provider: Ruma Santana MD Collected: 02/24/2017 1559 Ordering Location: [facility] Received: 02/25/2017 0810 Pathologist: Kenji [...] SERRATED POLYP/ADENOMA Signing Pathologist Direct Phone Line: [phone] signed by Kenji Hercules MD on 02/26/2017 at 3:21 [id number] x 3Diarrhea, rule out microscopic colitisA. Right/ascending [...] (BEAKER) (test 144 mg/dL 70-110 TESTED AT [address] [id number]) [place] [id number] POCT-GLUCOSE [id number] 14:21:00 Test Item Value Reference Range Comments POC-GLUCOSE METER (BEAKER) 118 mg/dL 70-110 TESTED AT [address] (test [id number]) [facility] [id number]
--- OUTSIDE RECORDS SUMMARY | 2018-09-07 21:59 | XMS REPORT | CCD ---
:1945 Author Organization [facility] Care Team Providers Name Role Phone JOSUÉ Simon Consulting Provider Unavailable Sharon Kimbrough Consulting Provider Unavailable PCP, None Consulting Provider Unavailable Pratibha Thurston Consulting Provider Ronald Hernandes Consulting Provider Unavailable Marla Dean) Jolene Consulting Provider Unavailable Shirley Davis Consulting Provider Unavailable Katelyn Gomes Consulting Provider Magnolia Wilkes Consulting Provider Unavailable Julio Peterson Consulting Provider Unavailable Tracie Henry Consulting Provider Contreras Suh Consulting Provider Unavailable Chel Du Consulting Provider Unavailable Maite Mendez Consulting Provider Unavailable Frieda Salcido Consulting Provider Unavailable Reed Meléndez Consulting Provider Unavailable Darcy Aleman Consulting Provider Octavio Wu Consulting Provider Unavailable Blanco Lai Consulting Provider Emily Stout Consulting Provider Unavailable Michelle Landers Consulting Provider Unavailable Jaswant Rizvi Consulting Provider Unavailable Soarya Burden Consulting Provider Unavailable Marshall Funk Consulting Provider [phone] Katie Christianson Consulting Provider Breanna Blackmon Consulting Provider Mahendra Rowley Consulting Provider Unavailable SYSTEM, SYSTEM Consulting Provider Unavailable Estefania Zarate Consulting Provider Unavailable Mercy Arita Consulting Provider Sammi Rizvi Consulting Provider Sary Drake Consulting Provider Jesus Franklin Consulting Provider [phone] Reese Wadsworth Consulting Provider Unavailable Jacki Wadsworth Consulting Provider Unavailable Akila Stark Consulting Provider Unavailable Guy Moran Consulting Provider Unavailable Liberty Wei Consulting Provider Unavailable Ellyn Huerta Consulting Provider Unavailable Oswaldo Rowley Consulting Provider Unavailable AbaCaroline earl Consulting Provider Unavailable Tawanna Crews Consulting Provider Unavailable Sharon Dimas Consulting Provider Unavailable Merry Walsh Consulting Provider Unavailable Minh Strong Consulting Provider Unavailable Sky Rizvi Consulting Provider Unavailable Katia Elise Consulting Provider Unavailable Murphy Mendes Consulting Provider Unavailable Otilio Stephens Consulting Provider Unavailable Allergies, Adverse Reactions, Alerts Substance Reaction Status aspirin severe chest pain?? Active erythromycin ?? Active penicillins rash?? Active phenobarbital rash?? Active Silk Tape takes skin off?? Canceled Problem List Condition Effective Dates Status Altered mental status ?? Active Craniotomy ?? Active DM - Diabetes mellitus 02/18/2011 Active HTN - Hypertension ?? Active Lethargic < 03/14/2011 Inactive Meningioma of brain ?? Active Visual disturbance ?? Active Medications Medication Instructions Start Date End Date Status Ona 5/325 oral tablet 1 tab, Route: PO, Drug 03/14/2011 03/15/2011 Discontinued Form: TAB, Q4H, PRN as needed for pain, Start date: 03/14/11 6:02:00, Duration: 30 day, Stop date: 04/13/11 6:01:00 magnesium sulfate 2 gm, 50 mL, Route: 03/14/2011 03/14/2011 Completed IVPB, Drug form: INJ, ONCE, Total dose=2 gm, Start date: 03/14/11 6:01:00, Duration: 1 doses or times, Stop date: 03/14/11 6:01:00 magnesium oxide 400 mg 400 mg, 1 tab, PO, BID, 03/15/2011 ?? Ordered oral tablet 4 tab, Substitution Allowed Lasix Substitution Allowed 03/13/2011 03/15/2011 Discontinued metFORmin Substitution Allowed 03/13/2011 03/15/2011 Discontinued Sodium Chloride 0.9% 1,000 mL, Rate: 1,000 03/14/2011 03/14/2011 Completed (Bolus) IV 1,000 mL ml/hr, Infuse over: 1 hr, Route: IV, Total Volume: 1,000, Bolus Dose, Priority: STAT, Start date: 03/14/11 4:12:00, Duration: 1 doses or times, Stop date: 03/14/11 5:11:00 morphine Sulfate 4 mg, 1 mL, Route: IVP, 03/13/2011 03/14/2011 Completed Drug form: INJ, ONCE, Priority: STAT, Start date: 03/13/11 22:47:00, Stop date: 03/13/11 22:47:00 NS 1,000 mL 1,000 mL, Rate: 75 03/14/2011 03/15/2011 Discontinued ml/hr, Infuse over: 13.3 hr, Route: IV, Total Volume: 1,000, Start date: 03/14/11 17:02:00, Duration: 30 day, Stop date: 04/13/11 17:01:00 Maxipime 2 gm, Route: IVPB, Drug 03/13/2011 03/14/2011 Completed form: INJ, ONCE, Start date: 03/13/11 23:52:00, Stop date: 03/13/11 23:52:00 Cipro 750 mg, 3 tab, Route: 03/13/2011 03/14/2011 Completed PO, Drug form: TAB, ONCE, Start date: 03/13/11 23:51:00, Stop date: 03/13/11 23:51:00 Benadryl 25 mg, 1 cap, Route: PO, 03/15/2011 03/15/2011 Discontinued Drug form: CAP, Q4H, PRN Itching, Start date: 03/15/11 6:21:00, Duration: 30 day, Stop date: 04/14/11 6:20:00 glucagon 1 mg, Route: IM, Drug 03/14/2011 03/15/2011 Discontinued form: PDR/INJ, PRN, PRN Blood Glucose Results, Priority: STAT, Start date: 03/14/11 6:06:00, Duration: 30 day, Stop date: 04/13/11 5:05:00 Dextrose 50% Syringe 25 gm, 50 mL, Route: 03/14/2011 03/15/2011 Discontinued IVP, Drug Form: INJ, PRN, PRN Blood Glucose Results, Start date: 03/14/11 6:06:00, Duration: 30 day, Stop date: 04/13/11 5:05:00 Dextrose 50% Syringe 12.5 gm, 25 mL, Route: 03/14/2011 03/15/2011 Discontinued IVP, Drug Form: INJ, PRN, PRN Blood Glucose Results, Start date: 03/14/11 6:06:00, Duration: 30 day, Stop date: 04/13/11 5:05:00 insulin aspart 4 unit, 0.04 mL, Route: 03/14/2011 03/15/2011 Discontinued SUB-Q, Drug form: SOLN, TID-Before Meals, PRN Blood Glucose Results, Start date: 03/14/11 6:06:00, Duration: 30 day, Stop date: 04/13/11 6:05:00 insulin aspart 5 unit, 0.05 mL, Route: 03/14/2011 03/15/2011 Discontinued SUB-Q, Drug form: SOLN, TID-Before Meals, PRN Blood Glucose Results, Start date: 03/14/11 6:06:00, Duration: 30 day, Stop date: 04/13/11 6:05:00 insulin aspart 3 unit, 0.03 mL, Route: 03/14/2011 03/15/2011 Discontinued SUB-Q, Drug form: SOLN, TID-Before Meals, PRN Blood Glucose Results, Start date: 03/14/11 6:06:00, Duration: 30 day, Stop date: 04/13/11 6:05:00 insulin aspart 1 unit, 0.01 mL, Route: 03/14/2011 03/15/2011 Discontinued SUB-Q, Drug form: SOLN, TID-Before Meals, PRN Blood Glucose Results, Start date: 03/14/11 6:06:00, Duration: 30 day, Stop date: 04/13/11 6:05:00 insulin aspart 2 unit, 0.02 mL, Route: 03/14/2011 03/15/2011 Discontinued SUB-Q, Drug form: SOLN, TID-Before Meals, PRN Blood Glucose Results, Start date: 03/14/11 6:06:00, Duration: 30 day, Stop date: 04/13/11 6:05:00 heparin 5,000 unit, 1 mL, Route: 03/14/2011 03/15/2011 Discontinued SUB-Q, Drug form: INJ, Q8H, Start date: 03/14/11 8:00:00, Duration: 30 day, Stop date: 04/13/11 0:00:00 Sodium Chloride 0.9% 1,000 mL, Rate: 1,000 03/13/2011 03/14/2011 Completed (Bolus) IV 1,000 mL ml/hr, Infuse over: 1 hr, Route: IV, Total Volume: 1,000, Bolus Dose, Priority: STAT, Start date: 03/13/11 23:20:00, Duration: 1 doses or times, Stop date: 03/14/11 0:19:00 trazodone 50 mg oral 50 mg, 1 tab, Route: PO, 03/14/2011 03/14/2011 Canceled tablet Drug form: TAB, Bedtime, Start date: 03/14/11 21:00:00, Duration: 30 day, Stop date: 04/12/11 21:00:00 Kane Thyroid 120 mg, 2 tab, Route: 03/14/2011 03/15/2011 Discontinued PO, Drug form: TAB, [id number], Start date: 03/14/11 6:45:00, Duration: 30 day, Stop date: 04/13/11 6:30:00 senna 8.6 mg oral tablet 8.6 mg, 1 tab, Route: 03/14/2011 03/14/2011 Discontinued PO, Drug Form: TAB, Daily, Start date: 03/14/11 9:00:00, Duration: 30 day, Stop date: 04/12/11 9:00:00 metoprolol 12.5 mg, 1 ea, Route: 03/14/2011 03/15/2011 Discontinued PO, Drug form: TAB, BID, Start date: 03/14/11 9:00:00, Duration: 30 day, Stop date: 04/12/11 17:00:00 Crestor 20 mg, 2 tab, Route: PO, 03/14/2011 03/15/2011 Discontinued Drug form: TAB, Daily, Start date: 03/14/11 9:00:00, Duration: 30 day, Stop date: 04/12/11 9:00:00 Keppra 500 mg oral tablet 500 mg, 1 tab, Route: 03/14/2011 03/15/2011 Discontinued PO, Drug form: TAB, Q12H, Start date: 03/14/11 9:00:00, Duration: 30 day, Stop date: 04/12/11 21:00:00 Novolin N 10 unit, 0.1 mL, Route: 03/14/2011 03/15/2011 Discontinued SUB-Q, Drug form: INJ, BID, Start date: 03/14/11 9:00:00, Duration: 30 day, Stop date: 04/12/11 17:00:00 docusate sodium 100 mg 100 mg, 1 cap, Route: 03/14/2011 03/15/2011 Discontinued oral capsule PO, Drug form: CAP, BID, Start date: 03/14/11 9:00:00, Duration: 30 day, Stop date: 04/12/11 17:00:00 ciprofloxacin 750 mg, 3 tab, Route: 03/14/2011 03/15/2011 Discontinued PO, Drug form: TAB, [id number], Start date: 03/14/11 7:00:00, Duration: 30 day, Stop date: 04/12/11 19:00:00 cefepime 2 gm, Route: IV, Drug 03/14/2011 03/15/2011 Discontinued form: INJ, [id number], Start date: 03/14/11 7:00:00, Duration: 30 day, Stop date: 04/12/11 23:00:00 calcium carbonate 500 mg, 1 tab, Route: 03/14/2011 03/15/2011 Discontinued PO, Drug form: CHEWTAB, TID, Start date: 03/14/11 9:00:00, Duration: 30 day, Stop date: 04/12/11 17:00:00 Vital Signs Most recent to oldest 1 2 3 [Reference Range]: Height 149.86 cm ? (03/13/2011 20:48:00) ?? Temperature Oral 96.6 DegF 98.2 DegF 98.0 DegF [96.4-99.1 DegF] (03/15/2011 12:00:00) ?? (03/15/2011 07:42:00) ?? (2010 03:28:00) ?? Systolic Blood Pressure 128 mmHg 121 mmHg 170 mmHg [90-140 mmHg] (03/15/2011 12:00:00) ?? (03/15/2011 07:42:00) ?? *HI* (03/15/2011 03:28:00) ?? Diastolic Blood Pressure 56 mmHg 91 mmHg 39 mmHg [60-90 mmHg] *LOW* *HI* *LOW* (03/15/2011 12:00:00) ?? (03/15/2011 07:42:00) ?? (03/15/2011 03:28:00) ?? Respiratory Rate [14-20 16 BRMIN 18 BRMIN 18 BRMIN BRMIN] (03/15/2011 12:00:00) ?? (03/15/2011 07:42:00) ?? (03/15/2011 03:28: 00) ?? Peripheral Pulse Rate 85 bpm 78 bpm 93 bpm [60-100 bpm] (03/15/2011 12:00:00) ?? (03/15/2011 07:42:00) ?? (03/15/2011 03:28:00) ?? Weight 83.665 kg ? (03/13/2011 20:48:00) ?? Results BEDSIDE GLUCOSE TESTING Most recent to oldest 1 2 3 [Reference Range]: Gluc POC Lifscn [65-110 152 mg/dL 1 116 mg/dL 2 126 mg/dL 3 mg/dL] *HI* *HI* *HI* (03/15/2011 12:19:00) ?? (03/15/2011 07:36:00) ?? (03/14/2011 21:08:00) ?? Comment1 Sliding Scale Notify RN/MD Notify RN/MD *NA* *NA* *NA* (03/15/2011 12:19:00) ?? (03/15/2011 07:36:00) ?? (03/14/2011 21:08:00) ?? Comment2 Sliding Scale Sliding Scale ?? *NA* *NA* (03/14/2011 17:15:00) ?? (03/14/2011 12:28:00) ?? 1Interpretive Data: Upper Reportable Limit: 200 mg/dL.2Interpretive Data: Upper Reportable Limit: 200 mg/dL.3Interpretive Data: Upper Reportable Limit: 200 mg/dL.CHEMISTRY Most recent to oldest [Reference 1 2 3 Range]: Sodium Lvl [135-145 mEq/L] 147 mEq/L 142 mEq/L 4 ?? *HI* (03/14/2011 01:50:00) ?? (03/15/2011 03:07:00) ?? Potassium Lvl [3.5-5.1 mEq/L] 3.5 mEq/L 3.8 mEq/L 5 ?? (03/15/2011 03:07:00) ?? (03/14/2011 01:50:00) ?? Chloride Lvl [95-109 mEq/L] 111 mEq/L 105 mEq/L 6 ?? *HI* (03/14/2011 01:50:00) ?? (03/15/2011 03:07:00) ?? CO2 [24-32 mEq/L] 21 mEq/L 19 mEq/L 7 ?? *LOW* *LOW* (03/15/2011 03:07:00) ?? (03/14/2011 01:50:00) ?? AGAP [10.0-20.0 mEq/L] 18.5 mEq/L 21.8 mEq/L 8 ?? (03/15/2011 03:07:00) ?? *HI* (03/14/2011 01:50:00) ?? Creatinine Lvl [0.5-1.4 mg/dL] 1.4 mg/dL 1.4 mg/dL 9 ?? (03/15/2011 03:07:00) ?? (03/14/2011 01:50:00) ?? BUN [7-22 mg/dL] 21 mg/dL 20 mg/dL 10 ?? (03/15/2011 03:07:00) ?? (03/14/2011 01:50:00) ?? B/C Ratio [6-25] 14 11 ? (03/14/2011 01:50:00) ?? Glucose Lvl 97 mg/dL 12 91 mg/dL 13,??14,??15 ?? *NA* *NA* (03/15/2011 03:07:00) ?? (03/14/2011 01:50:00) ?? Total Protein [6.4-8.4 g/dL] 6.2 g/dL 16 6.1 g/dL ?? *LOW* *LOW* (03/14/2011 01:50:00) ?? (03/13/2011 01:50:00) ?? Albumin Lvl [3.5-5.0 g/dL] 2.8 g/dL 17 2.9 g/dL ?? *LOW* *LOW* (03/14/2011 01:50:00) ?? (03/13/2011 01:50:00) ?? Globulin [2.0-4.0 g/dL] 3.4 g/dL 18 3.2 g/dL ?? (03/14/2011 01:50:00) ?? (03/13/2011 01:50:00) ?? A/G Ratio [0.7-1.6] 0.8 19 0.9 ?? (03/14/2011 01:50:00) ?? (03/13/2011 01:50:00) ?? Calcium Lvl [8.5-10.5 mg/dL] 8.1 mg/dL 8.4 mg/dL 20 ?? *LOW* *LOW* (03/15/2011 03:07:00) ?? (03/14/2011 01:50:00) ?? Phosphorus [2.5-4.5 mg/dL] 4.3 mg/dL 21 ? (03/14/2011 01:50:00) ?? Magnesium Lvl [1.8-2.4 mg/dL] 1.7 mg/dL 1.2 mg/dL 22 ?? *LOW* *LOW* (03/15/2011 03:07:00) ?? (03/14/2011 01:50:00) ?? ALT [0-65 U/L] 33 U/L 23 32 U/L ?? (03/14/2011 01:50:00) ?? (03/13/2011 01:50:00) ?? AST [0-37 U/L] 27 U/L 24 27 U/L ?? (03/14/2011 01:50:00) ?? (03/13/2011 01:50:00) ?? Alk Phos [39-136 U/L] 109 U/L 25 103 U/L ?? (03/14/2011 01:50:00) ?? (03/13/2011 01:50:00) ?? Bili Total [0.2-1.3 mg/dL] 0.4 mg/dL 26 0.4 mg/dL ?? (03/14/2011 01:50:00) ?? (03/13/2011 01:50:00) ?? Bili Direct [0.0-0.3 mg/dL] 0.1 mg/dL ? (03/13/2011 01:50:00) ?? Bili Indirect [0.0-1.0 mg/dL] 0.3 mg/dL ? (03/13/2011 01:50:00) ?? Amylase Lvl [25-115 U/L] 23 U/L 27 ? *LOW* (03/14/2011 01:50:00) ?? Lipase Lvl [73-393 U/L] 49 U/L 28 ? *LOW* (03/14/2011 01:50:00) ?? Lactic Acid Lvl [0.5-2.2 mMol/L] 1.6 mMol/L ? (03/14/2011 02:01:00) ?? Total CK [12-191 U/L] 31 U/L ? (03/14/2011 02:41:00) ?? T4 Free [0.76-1.46 ng/dL] 2.00 ng/dL ? *HI* (03/14/2011 09:30:00) ?? TSH [0.360-3.740 uIU/mL] 0.042 uIU/mL ? *LOW* (03/14/2011 02:41:00) ?? 4Result Comment: Collection date/time has been modified to: 01:50:00. Previous collection date/time: 01:50:00.5Result Comment: Collection date/time has been modified to: 01:50:00. Previous collection date/ time: 01:50:00.6Result Comment: Collection date/time has been modified to: 01:50:00. Previous collection date/time: :50 :00.7Result Comment: Collection date/time has been modified to: 01:50: 00. Previous collection date/time: :50:00.8Result Comment: Collection date/time has been modified to: 01:50:00. Previous collection date/time: :50:00.9Result Comment: Collection date/time has been modified to: 01:50:00. Previous collection date/time: :50:00.10Result Comment: Collection date/time has been modified to: 01:50:00. Previous collection date/time: :50:00.11Result Comment: Collection date/time has been modified to: 01:50:00. Previous collection date/time: 01:50:00.12Interpretive Data: Reference Ranges : 0 - 7 days : 41 - 90 mg/dL7 days - 150 yrs : 70 - 99 mg/ dL (fasting), based on the clinical recommendations of the [place] [employer].13Result Comment: Collection date/time has been modified to: 01:50:00. Previous collection date/time: 01:50:00.14Interpretive Data: Reference Ranges : 0 - 7 days : 41 - 90 mg/dL7 days - 150 yrs : 70 - 99 mg/dL (fasting), based on the clinical recommendations of the [place] [employer].15Interpretive Data: Reference Ranges : 0 - 7 days : 41 - 90 mg/dL7 days - 150 yrs : 70 - 99 mg/dL (fasting), based on the clinical recommendations of the [place] [employer].16Result Comment: Collection date/time has been modified to: 01:50:00. Previous collection date/time: 01:50:00.17Result Comment: Collection date/time has been modified to: 01:50:00. Previous collection date/time: 01:50:00.18Result Comment: Collection date/time has been modified to: 01:50:00. Previous collection date/time: 01:50:00.19Result Comment: Collection date/time has been modified to: 01:50:00. Previous collection date/time: :50:00.20Result Comment: Collection date/time has been modified to: 01:50:00. Previous collection date/ time: 01:50:00.21Result Comment: Collection date/time has been modified to: 01:50:00. Previous collection date/time: :50 :00.22Result Comment: Collection date/time has been modified to: 01:50 :00. Previous collection date/time: :50:00.23Result Comment: Collection date/time has been modified to: 01:50:00. Previous collection date/time: 01:50:00.24Result Comment: Collection date/time has been modified to: 01:50:00. Previous collection date/time: :50:00.25Result Comment: Collection date/time has been modified to: 01:50:00. Previous collection date/time: 01:50:00.26Result Comment: Collection date/time has been modified to: 01:50:00. Previous collection date/time: 01:50:00.27Result Comment: Collection date/time has been modified to: 01:50:00. Previous collection date/ time: 01:50:00.28Result Comment: Collection date/time has been modified to: 01:50:00. Previous collection date/time: 01:50 :00.HEMATOLOGY Most recent to oldest [Reference 1 2 3 Range]: WBC [3.7-10.4 K/CMM] 9.1 K/CMM 11.8 K/CMM 29 ?? (03/15/2011 03:07:00) ?? *HI* (03/14/2011 01:50:00) ?? RBC [4.20-5.40 M/CMM] 3.56 M/CMM 4.18 M/CMM 30 ?? *LOW* *LOW* (03/15/2011 03:07:00) ?? (03/14/2011 01:50:00) ?? Hgb [12.0-16.0 g/dL] 11.3 g/dL 13.3 g/dL 31 ?? *LOW* (03/14/2011 01:50:00) ?? (03/15/2011 03:07:00) ?? Hct [36.0-48.0 %] 32.3 % 37.9 % 32 ?? *LOW* (03/14/2011 01:50:00) ?? (03/15/2011 03:07:00) ?? MCV [81.0-99.0 fL] 90.7 fL 90.6 fL 33 ?? (03/15/2011 03:07:00) ?? (03/14/2011 01:50:00) ?? MCH [27.0-31.0 pg] 31.6 pg 31.8 pg 34 ?? *HI* *HI* (03/15/2011 03:07:00) ?? (03/14/2011 01:50:00) ?? MCHC [32.0-36.0 g/dL] 34.8 g/dL 35.1 g/dL 35 ?? (03/15/2011 03:07:00) ?? (03/14/2011 01:50:00) ?? RDW [11.5-14.5 %] 14.7 % 13.5 % 36 ?? *HI* (03/14/2011 01:50:00) ?? (03/15/2011 03:07:00) ?? Platelet [133-450 K/CMM] 154 K/CMM 199 K/CMM 37 ?? (03/15/2011 03:07:00) ?? (03/14/2011 01:50:00) ?? MPV [7.4-10.4 fL] 10.1 fL 10.0 fL 38 ?? (03/15/2011 03:07:00) ?? (03/14/2011 01:50:00) ?? Segs [45.0-75.0 %] 63.3 % 61.3 % 39 ?? (03/15/2011 03:07:00) ?? (03/14/2011 01:50:00) ?? Lymphocytes [20.0-40.0 %] 16.7 % 22.2 % 40 ?? *LOW* (03/14/2011 01:50:00) ?? (03/15/2011 03:07:00) ?? Monocytes [2.0-12.0 %] 12.4 % 10.3 % 41 ?? *HI* (03/14/2011 01:50:00) ?? (03/15/2011 03:07:00) ?? Eosinophils [0.0-4.0 %] 6.3 % 6.2 % 42 ?? *HI* *HI* (03/15/2011 03:07:00) ?? (03/14/2011 01:50:00) ?? Basophils [0.0-1.0 %] 1.3 % 0.0 % 43 ?? *HI* (03/14/2011 01:50:00) ?? (03/15/2011 03:07:00) ?? Segs-Bands # [1.5-8.1 K/CMM] 5.8 K/CMM 7.3 K/CMM 44 ?? (03/15/2011 03:07:00) ?? (03/14/2011 01:50:00) ?? Lymphocytes # [1.0-5.5 K/CMM] 1.5 K/CMM 2.6 K/CMM 45 ?? (03/15/2011 03:07:00) ?? (03/14/2011 01:50:00) ?? Monocytes # [0.0-0.8 K/CMM] 1.1 K/CMM 1.2 K/CMM 46 ?? *HI* *HI* (03/15/2011 03:07:00) ?? (03/14/2011 01:50:00) ?? Eosinophils # [0.0-0.5 K/CMM] 0.6 K/CMM 0.7 K/CMM 47 ?? *HI* *HI* (03/15/2011 03:07:00) ?? (03/14/2011 01:50:00) ?? Basophils # [0.0-0.2 K/CMM] 0.1 K/CMM 0.0 K/CMM 48 ?? (03/15/2011 03:07:00) ?? (03/14/2011 01:50:00) ?? Anisocyte [>None Seen] 1+ 49 ? *ABN* (03/14/2011 01:50:00) ?? Polychrom [>None Seen] Slight 50 ? (03/14/2011 01:50:00) ?? [place] Cell [>None Seen] Slight 51 ? *ABN* (03/14/2011 01:50:00) ?? Large Plt [>None Seen] Slight 52 ? *ABN* (03/14/2011 01:50:00) ?? PT [12.0-14.7 seconds] 14.7 seconds ? (03/14/2011 02:01:00) ?? INR [0.85-1.17] 1.15 53 ? (03/14/2011 02:01:00) ?? PTT [22.9-35.8 seconds] 30.3 seconds 54 ? (03/14/2011 02:01:00) ?? 29Result Comment: Collection date/time has been modified to: 01:50: 00. Previous collection date/time: 01:50:00.30Result Comment: Collection date/time has been modified to: 01:50:00. Previous collection date/time: 01:50:00.31Result Comment: Collection date/time has been modified to: 01:50:00. Previous collection date/time: 01:50:00.32Result Comment: Collection date/time has been modified to: 01:50:00. Previous collection date/time: 01:50:00.33Result Comment: Collection date/time has been modified to: 01:50:00. Previous collection date/time: 01:50:00.34Result Comment: Collection date/time has been modified to: 01:50:00. Previous collection date/ time: 01:50:00.35Result Comment: Collection date/time has been modified to: 01:50:00. Previous collection date/time: 01:50 :00.36Result Comment: Collection date/time has been modified to: 01:50 :00. Previous collection date/time: 01:50:00.37Result Comment: Collection date/time has been modified to: 01:50:00. Previous collection date/time: 01:50:00.38Result Comment: Collection date/time has been modified to: 01:50:00. Previous collection date/time: 01:50:00.39Result Comment: Collection date/time has been modified to: 01:50:00. Previous collection date/time: 01:50:00.40Result Comment: Collection date/time has been modified to: 01:50:00. Previous collection date/time: 01:50:00.41Result Comment: Collection date/time has been modified to: 01:50:00. Previous collection date/ time: 01:50:00.42Result Comment: Collection date/time has been modified to: 01:50:00. Previous collection date/time: 01:50 :00.43Result Comment: Collection date/time has been modified to: 01:50 :00. Previous collection date/time: 01:50:00.44Result Comment: Collection date/time has been modified to: 01:50:00. Previous collection date/time: 01:50:00.45Result Comment: Collection date/time has been modified to: 01:50:00. Previous collection date/time: 01:50:00.46Result Comment: Collection date/time has been modified to: 01:50:00. Previous collection date/time: 01:50:00.47Result Comment: Collection date/time has been modified to: 01:50:00. Previous collection date/time: 01:50:00.48Result Comment: Collection date/time has been modified to: 01:50:00. Previous collection date/ time: 01:50:00.49Result Comment: Collection date/time has been modified to: 01:50:00. Previous collection date/time: 01:50 :00.50Result Comment: Collection date/time has been modified to: 01:50 :00. Previous collection date/time: 01:50:00.51Result Comment: Collection date/time has been modified to: 01:50:00. Previous collection date/time: 01:50:00.52Result Comment: Collection date/time has been modified to: 01:50:00. Previous collection date/time: 01:50:00.53Interpretive Data: RECOMMENDED RANGES FOR PROTIME INR: 2.0-3.0 for most medical and surgical thromboembolic states. 2.5-3.5 for artificial heart valves and recurrent embolism.INR SHOULD BE USED ONLY FOR PATIENTS ON STABLE ANTICOAGULANT THERAPY.54Interpretive Data: Heparin Therapeutic Range: 57 - 92 Seconds
[2018-09-07] MEDS ORDERED: TETRACAINE HCL 0.5% 2ML OPTH ONE (22:33)
[2018-09-07] MEDS ORDERED: EYE WASH SOLNT 118 ML BTL ONE (22:33)
[2018-09-07] MEDS ORDERED: FLUORESCEIN SODIUM 1 MG/WRAP ONE (22:33)
[2018-09-07 23:42] LABS: Absolute Lymphocytes (CBC) 3.5 K/uL (0.7-4.9); Absolute Monocytes 0.7 K/uL (0.1-1.3); Basophils % 0.1 % (0-1.3); Eosinophils % 2.1 % (0-4.4); Hematocrit 51.3 % (36.0-45.0); Lymphocytes % 47.7 % (15.3-44.8); MPV 11.3 fL (7.6-11.3); Monocytes % 9.3 % (3.3-12.3); RBC Red Blood Cell Count 5.55 M/uL (3.86-4.86)
[2018-09-07 23:44] LABS: Protime INR 1.11
[2018-09-08] MEDS ORDERED: NA CHLORIDE 0.9% 500 ML ONE (00:02)
[2018-09-08] MEDS ORDERED: NA CHLORIDE 0.9% 1,000 ML ONE (00:02)
[2018-09-08 00:14] LABS: Albumin 3.3 g/dL (3.4-5.0); Bilirubin Direct 0.2 mg/dL (0-0.2); Bilirubin Total 0.7 mg/dL (0.2-1.0); Magnesium 1.9 mg/dL (1.8-2.4); Potassium 4.1 mmol/L (3.5-5.1); Protein, Total 7.9 g/dL (6.4-8.2); Troponin (Emerg Dept Use Only) 0.09 ng/mL (0.0-0.045)
--- NOTE | 2018-09-08 00:15 | ER ---
Nurse's Notes [facility] Name: Franci Lange Age: 73 yrs Sex: Female : 1945 Arrival Date: 09/07/2018 Time: 21:03 Bed 8 Private MD: Manfred Pearson R Diagnosis: Blindness, right eye, low vision left eye-resolved;Ocular pain, right eye;Transient cerebral ischemic attack, unspecified;Type 1 diabetes mellitus;Unspecified kidney failure Presentation: 09/07 21:23 Presenting complaint: states: "She was recently seen at [place] to rule out jd3 stroke because of slurred speech. today she is having sudden right eye pain.". Transition of care: patient was not received from another setting of care. Onset of symptoms was September 07, 2018. Risk Assessment: Do you want to hurt yourself or someone else? Patient reports no desire to harm self or others. Initial Sepsis Screen: Does the patient meet any 2 criteria? No. Patient's initial sepsis screen is negative. Does the patient have a suspected source of infection? No. Patient's initial sepsis screen is negative. Care prior to arrival: None. 21:23 Method Of Arrival: Ambulatory jd3 21:23 Acuity: JAY 3 jd3 Historical: - Allergies: 21:28 Aspirin; jd3 21:28 cefepime; jd3 21:28 CEPHALOSPORINS; jd3 21:28 Ciprofloxacin; jd3 21:28 Cortizone-10; jd3 21:28 PENICILLINS; jd3 21:28 Phenobarbital; jd3 - Home Meds: 21:28 clopidogrel 75 mg oral tab [Active]; rosuvastatin 20 mg oral tab [Active]; ramipril 10 jd3 mg Oral cap [Active]; amlodipine 5 mg tab [Active]; metoprolol tartrate 25 mg Oral tab [Active]; levothyroxine 88 mcg tab [Active]; Lantus Sub-Q [Active]; trulicity 0.75 mg [Active]; furosemide 20 mg Oral tab [Active]; Potassium Chloride Oral [Active]; - PMHx: 21:28 Myocardial infarction; Diabetes - IDDM; jd3 - PSHx: 21:28 brain; jd3 - Immunization history:: Adult Immunizations unknown. - Social history:: Smoking status: Patient/guardian denies using tobacco. - Ebola Screening: : Patient negative for fever greater than or equal to 101.5 degrees Fahrenheit, and additional compatible Ebola Virus Disease symptoms. - Family history:: not pertinent. Screenin:45 Abuse screen: Denies threats or abuse. Denies injuries from another. Nutritional aa1 screening: No deficits noted. Tuberculosis screening: No symptoms or risk factors identified. Fall Risk. Assessment: 21:45 General: Appears in no apparent distress. comfortable, Behavior is appropriate for age, aa1 agitated. Pain: Complains of pain in right eye Pain currently is 10 out of 10 on a pain scale. Quality of pain is described as stabbing, Pain began suddenly, Is continuous. Neuro: Level of Consciousness is awake, alert, confused, Oriented to person, place, time, situation, Moves all extremities. Full function Gait is steady, Speech is slurred, Facial symmetry appears normal, Pupils are PERRLA, Intact. Cardiovascular: Denies chest pain, palpitations, shortness of breath, Heart tones S1 S2 present. Respiratory: Airway is patent Respiratory effort is even, unlabored, Respiratory pattern is regular, symmetrical. GI: No signs and/or symptoms were reported involving the gastrointestinal system. : No signs and/or symptoms were reported regarding the genitourinary system. EENT: Sclera/Cornea are reddened in right eye Reports pain in right eye. Derm: Skin is intact, is healthy with good turgor, Skin is pink, warm \\T\\ dry. Musculoskeletal: Circulation, motion, and sensation intact. Capillary refill < 3 seconds. 23:00 Reassessment: Patient appears in no apparent distress at this time. Patient and/or aa1 family updated on plan of care and expected duration. Pain level reassessed. Patient is alert, oriented x 3, equal unlabored respirations, skin warm/dry/pink. Awaiting eye exam from provider. Charge nurse at bedside attempting u/s IV. 09/08 00:00 Reassessment: Patient appears in no apparent distress at this time. Patient and/or aa1 family updated on plan of care and expected duration. Pain level reassessed. Patient is alert, oriented x 3, equal unlabored respirations, skin warm/dry/pink. Awaiting lab results. 00:29 Reassessment: Pt to be transferred; awaiting acceptance. aa1 01:10 Reassessment: pt IV infiltrated. Removed and pressure dressing placed. Charge nurse tl2 notified. Called RENAY Sutherland from ICU to attempt midline. 01:45 Reassessment: RENAY Sutherland at bedside to attempt midline. tl2 02:16 Reassessment: RENAY Sutherland to obtain consent for PICC line placement. At bedside at this tl2 time. 03:30 Reassessment: Patient appears in no apparent distress at this time. Patient and/or aa1 family updated on plan of care and expected duration. Pain level reassessed. Patient is alert, oriented x 3, equal unlabored respirations, skin warm/dry/pink. Report given to Lori Pantoja at [facility]. 04:10 Reassessment: Patient appears in no apparent distress at this time. Patient is alert, aa1 oriented x 3, equal unlabored respirations, skin warm/dry/pink. [facility] present for transfer to [facility]. Vital Signs: 09/07 21:28 BP 146 / 41; Pulse 67; Resp 18 S; Temp 97.5(O); Pulse Ox 98% on R/A; Weight 90.72 kg jd3 (R); Height 4 ft. 11 in. (149.86 cm) (R); Pain 10/10; 23:00 BP 141 / 51; Pulse 69; Resp 20; Pulse Ox 98% on R/A; aa1 04 00:00 BP 138 / 56; Pulse 76; Resp 16; Pulse Ox 100% on R/A; Pain 0/10; aa1 03:23 BP 119 / 51; Pulse 79; Resp 18; Pulse Ox 100% on R/A; aa1 09/07 21:28 Body Mass Index 40.39 (90.72 kg, 149.86 cm) jd3 NIH Stroke Scale Scores: 00:08 NIHSS Score: 0 [facility] ED Course: 09/07 21:03 Patient arrived in ED. am2 21:04 Manfred Pearson MD is Private Physician. am2 21:22 Luther Vang MD is Attending Physician. [facility] 21:24 Triage completed. jd3 21:29 Arm band placed on. jd3 21:45 Patient has correct armband on for positive identification. Bed in low position. Call aa1 light in reach. Pulse ox on. NIBP on. 22:[address] vm2 22:57 XRAY Chest (1 view) In Process Unspecified. EDMS 23:20 Initial lab(s) drawn, by me, sent to lab. Inserted saline lock: 20 gauge in right bb antecubital area, using aseptic technique. Blood collected. 23:21 Lexii Pop, RENAY is Primary Nurse. aa1 23:37 CT Head Brain wo Cont In Process Unspecified. EDMS 09/08 03:15 Chest Single View In Process Unspecified. EDMS 03:45 Inserted LUE PICC line inserted by Ena Tidwell RN. aa1 04:10 No provider procedures requiring assistance completed. Patient transferred, IV remains aa1 in place. Administered Medications: 00:03 Drug: NS 0.9% 500 ml Route: IV; Rate: bolus; Site: right antecubital; aa1 00:30 Follow up: IV Status: Completed infusion aa1 00:03 Drug: NS 0.9% 1000 ml Route: IV; Rate: 125 ml/hr; Site: right antecubital; aa1 04:05 Follow up: IV Status: Infusion continued upon transfer aa1 03:50 Drug: foLIC Acid 1 mg Route: IVPB; Site: left upper arm; aa1 04:04 Follow up: IV Status: Infusion continued upon transfer aa1 03:50 Drug: Zofran 4 mg Route: IVP; Site: left upper arm; aa1 04:11 Follow up: Response: No adverse reaction; Medication administered at discharge. aa1 03:52 Drug: morphine 2 mg Route: IVP; Site: left upper arm; aa1 04:11 Follow up: Response: No adverse reaction; Medication administered at discharge. aa1 04:06 Not Given (Other Intervention Used): fentaNYL (PF) 25 mcg IVP once aa1 Outcome: 00:15 ER care complete, transfer ordered by . augusta 04:10 Transferred by ground EMS to [facility], Transfer form completed. aa1 04:10 Condition: good 04:10 Discharge instructions given to patient, family, significant other, Instructed on the need for transfer, Demonstrated understanding of instructions. 04:11 Patient left the ED. aa1 NIH Stroke Scale - NIH Stroke Score Date: 09/08/2018 Time: 00:08 Total Score = 0 1a. Level of Consciousness (LOC) - 0(Alert) 1b. Level of Consciousness (LOC) (Year \\T\\ Age) - 0(Both) 1c. LOC Commands (Open \\T\\ Closes Eyes/Labor Representative) - 0(Both) 2. Best Gaze (Lateral Gaze Paresis) - 0(Normal) 3. Visual Field Loss - 0(No visual loss) 4. Facial Palsy - 0(Normal) 5a. Left Arm: Motor (10-second hold) - 0(No drift) 5b. Right Arm: Motor (10-second hold) - 0(No drift) 6a. Left Leg: Motor (5-second hold - always test supine) - 0(No drift) 6b. Right Leg: Motor (5-second hold - always test supine) - 0(No drift) 7. Limb Ataxia (finger/nose \\T\\ heel/rocha - test with eyes open) - 0(Absent) 8. Sensory Loss (pinprick arms/legs/face) - 0(Normal) 9. Best Language: Aphasia (description/naming/reading) - 0(No aphasia) 10. Dysarthria (speech clarity - read or repeat words) - 0(Normal) 11. Extinction and Inattention (visual/tactile/auditory/spatial/personal) - 0(No abnormality) Initials: augusta Signatures: Dispatcher [employer] EDMS Lexii Pop RN RN aa1 Luther Vang MD MD cha Ballard, Brenda, RN RN bb Knox, Taylor, RN RN tl2 Nyasia Felix Victoria 2 Alexandr De RN RN jd3
--- NOTE | 2018-09-08 00:16 | EDPHYS ---
Physician Documentation [facility] Name: Fracni Lange Age: 73 yrs Sex: Female : 1945 Arrival Date: 09/07/2018 Time: 21:03 Bed 8 Private MD: Manfred Pearson R ED Physician Luther Vang HPI: 09/07 22:19 This 73 yrs old Female presents to ER via Ambulatory with complaints of Eye augusta Pain. 22:19 The patient is experiencing pain, to the right eye. Onset: The symptoms/episode augusta began/occurred 1 hour(s) ago. Aggravated by nothing. Alleviated by nothing. Associated signs and symptoms: Pertinent positives: this morning lost all vision in left eye. Patient does not utilize any form of vision correction. Severity of symptoms: At their worst the symptoms were moderate in the emergency department the symptoms have improved mildly. The patient has not experienced similar symptoms in the past. Historical: - Allergies: 21:28 Aspirin; jd3 21:28 cefepime; jd3 21:28 CEPHALOSPORINS; jd3 21:28 Ciprofloxacin; jd3 21:28 Cortizone-10; jd3 21:28 PENICILLINS; jd3 21:28 Phenobarbital; jd3 - Home Meds: 21:28 clopidogrel 75 mg oral tab [Active]; rosuvastatin 20 mg oral tab [Active]; ramipril 10 jd3 mg Oral cap [Active]; amlodipine 5 mg tab [Active]; metoprolol tartrate 25 mg Oral tab [Active]; levothyroxine 88 mcg tab [Active]; Lantus Sub-Q [Active]; trulicity 0.75 mg [Active]; furosemide 20 mg Oral tab [Active]; Potassium Chloride Oral [Active]; - PMHx: 21:28 Myocardial infarction; Diabetes - IDDM; jd3 - PSHx: 21:28 brain; jd3 - Immunization history:: Adult Immunizations unknown. - Social history:: Smoking status: Patient/guardian denies using tobacco. - Ebola Screening: : Patient negative for fever greater than or equal to 101.5 degrees Fahrenheit, and additional compatible Ebola Virus Disease symptoms. - Family history:: not pertinent. ROS: 22:19 Constitutional: Negative for fever, chills, and weight loss, ENT: Negative for injury, augusta pain, and discharge, Neck: Negative for injury, pain, and swelling, Cardiovascular: Negative for chest pain, palpitations, and edema, Respiratory: Negative for shortness of breath, cough, wheezing, and pleuritic chest pain, Abdomen/GI: Negative for abdominal pain, nausea, vomiting, diarrhea, and constipation, Back: Negative for injury and pain, : Negative for injury, bleeding, discharge, and swelling, MS/Extremity: Negative for injury and deformity, Skin: Negative for injury, rash, and discoloration, Neuro: Negative for headache, weakness, numbness, tingling, and seizure, Psych: Negative for depression, anxiety, suicide ideation, homicidal ideation, and hallucinations, Allergy/Immunology: Negative for hives, rash, and allergies, Endocrine: Negative for neck swelling, polydipsia, polyuria, polyphagia, and marked weight changes, Hematologic/Lymphatic: Negative for swollen nodes, abnormal bleeding, and unusual bruising. 22:19 Eyes: Positive for pain, vision loss, of the outer aspect of conjuctiva of right eye, iris of right eye and inner aspect of conjuctiva of right eye, left this morning less than 1 hour. Exam: 22:19 Constitutional: This is a well developed, well nourished patient who is awake, alert, augusta and in no acute distress. Head/Face: Normocephalic, atraumatic. ENT: Nares patent. No nasal discharge, no septal abnormalities noted. Tympanic membranes are normal and external auditory canals are clear. Oropharynx with no redness, swelling, or masses, exudates, or evidence of obstruction, uvula midline. Mucous membranes moist. Neck: Trachea midline, no thyromegaly or masses palpated, and no cervical lymphadenopathy. Supple, full range of motion without nuchal rigidity, or vertebral point tenderness. No Meningismus. Chest/axilla: Normal chest wall appearance and motion. Nontender with no deformity. No lesions are appreciated. Cardiovascular: Regular rate and rhythm with a normal S1 and S2. No gallops, murmurs, or rubs. Normal PMI, no JVD. No pulse deficits. Respiratory: Lungs have equal breath sounds bilaterally, clear to auscultation and percussion. No rales, rhonchi or wheezes noted. No increased work of breathing, no retractions or nasal flaring. Abdomen/GI: Soft, non-tender, with normal bowel sounds. No distension or tympany. No guarding or rebound. No evidence of tenderness throughout. Back: No spinal tenderness. No costovertebral tenderness. Full range of motion. Skin: Warm, dry with normal turgor. Normal color with no rashes, no lesions, and no evidence of cellulitis. MS/ Extremity: Pulses equal, no cyanosis. Neurovascular intact. Full, normal range of motion. Neuro: Awake and alert, GCS 15, oriented to person, place, time, and situation. Cranial nerves II-XII grossly intact. Motor strength 5/5 in all extremities. Sensory grossly intact. Cerebellar exam normal. Normal gait. Psych: Awake, alert, with orientation to person, place and time. Behavior, mood, and affect are within normal limits. 22:19 Eyes: Periorbital structures: appear normal, no acute changes, Pupils: equal, round, and reactive to light and accomodation, Extraocular movements: intact throughout, Conjunctiva: injected, Corneas: no acute changes, Sclera: injected, Anterior chamber: normal, Lids and lashes: appear normal, no acute changes. 23:51 Eyes: Nystagmus: is not appreciated, Intraocular pressure: right eye = 2mmHg. [facility] Vital Signs: 21:28 BP 146 / 41; Pulse 67; Resp 18 S; Temp 97.5(O); Pulse Ox 98% on R/A; Weight 90.72 kg jd3 (R); Height 4 ft. 11 in. (149.86 cm) (R); Pain 10/10; 23:00 BP 141 / 51; Pulse 69; Resp 20; Pulse Ox 98% on R/A; aa1 04 00:00 BP 138 / 56; Pulse 76; Resp 16; Pulse Ox 100% on R/A; Pain 0/10; aa1 03:23 BP 119 / 51; Pulse 79; Resp 18; Pulse Ox 100% on R/A; aa1 09/07 21:28 Body Mass Index 40.39 (90.72 kg, 149.86 cm) jd3 NIH Stroke Scale Scores: 00:08 NIHSS Score: 0 [facility] MDM: 09/07 21:22 Patient medically screened. [facility] 22:23 Data reviewed: vital signs, nurses notes, lab test result(s), EKG, radiologic studies, [facility] CT scan, plain films. 09/07 22:18 Order name: Basic Metabolic Panel; Complete Time: 01:20 [facility] 09/07 22:18 Order name: CBC with Diff; Complete Time: 00:08 [facility] 09/07 22:18 Order name: LFT's; Complete Time: 01:20 [facility] 09/07 22:18 Order name: Magnesium; Complete Time: 01:20 [facility] 09/07 22:18 Order name: NT PRO-BNP; Complete Time: 01:20 [facility] 09/07 22:18 Order name: PT-INR; Complete Time: 00:08 [facility] 09/07 22:18 Order name: Troponin (emerg Dept Use Only); Complete Time: 01:20 [facility] 09/07 22:18 Order name: XRAY Chest (1 view) [facility] 09/07 22:18 Order name: CT Head Brain wo Cont [facility] 09/08 02:59 Order name: Chest Single View EDAL 09/08 03:28 Order name: Urine Culture [facility] 09/07 22:18 Order name: EKG; Complete Time: 22:19 [facility] 09/07 22:18 Order name: Cardiac monitoring; Complete Time: 23:24 [facility] 09/07 22:18 Order name: EKG - Nurse/Tech; Complete Time: 23:24 [facility] 09/07 22:18 Order name: IV Saline Lock; Complete Time: 23:36 [facility] 09/07 22:18 Order name: Labs collected and sent; Complete Time: 23:36 [facility] 09/07 22:18 Order name: O2 Per Protocol; Complete Time: 23:24 [facility] 09/07 22:18 Order name: O2 Sat Monitoring; Complete Time: 23:24 [facility] 09/07 22:18 Order name: Urine Dipstick-Ancillary (obtain specimen); Complete Time: 04:05 [facility] Administered Medications: 09/08 00:03 Drug: NS 0.9% 500 ml Route: IV; Rate: bolus; Site: right antecubital; aa1 00:30 Follow up: IV Status: Completed infusion aa1 00:03 Drug: NS 0.9% 1000 ml Route: IV; Rate: 125 ml/hr; Site: right antecubital; aa1 04:05 Follow up: IV Status: Infusion continued upon transfer aa1 03:50 Drug: foLIC Acid 1 mg Route: IVPB; Site: left upper arm; aa1 04:04 Follow up: IV Status: Infusion continued upon transfer aa1 03:50 Drug: Zofran 4 mg Route: IVP; Site: left upper arm; aa1 04:11 Follow up: Response: No adverse reaction; Medication administered at discharge. aa1 03:52 Drug: morphine 2 mg Route: IVP; Site: left upper arm; aa1 04:11 Follow up: Response: No adverse reaction; Medication administered at discharge. aa1 04:06 Not Given (Other Intervention Used): fentaNYL (PF) 25 mcg IVP once aa1 Disposition: 09/08/18 00:15 Transfer ordered to Other Acute Care Facility. Diagnosis are Blindness, right eye, low vision left eye - resolved, Ocular pain, right eye, Transient cerebral ischemic attack, unspecified, Type 1 diabetes mellitus, Unspecified kidney failure. - Reason for transfer: Higher level of care. - Accepting physician is to [facility] gutierrez. - Condition is Fair. - Problem is new. - Symptoms have improved. NIH Stroke Scale - NIH Stroke Score Date: 09/08/2018 Time: 00:08 Total Score = 0 1a. Level of Consciousness (LOC) - 0(Alert) 1b. Level of Consciousness (LOC) (Year \T\ Age) - 0(Both) 1c. LOC Commands (Open \T\ Closes Eyes/Shucker) - 0(Both) 2. Best Gaze (Lateral Gaze Paresis) - 0(Normal) 3. Visual Field Loss - 0(No visual loss) 4. Facial Palsy - 0(Normal) 5a. Left Arm: Motor (10-second hold) - 0(No drift) 5b. Right Arm: Motor (10-second hold) - 0(No drift) 6a. Left Leg: Motor (5-second hold - always test supine) - 0(No drift) 6b. Right Leg: Motor (5-second hold - always test supine) - 0(No drift) 7. Limb Ataxia (finger/nose \T\ heel/rocha - test with eyes open) - 0(Absent) 8. Sensory Loss (pinprick arms/legs/face) - 0(Normal) 9. Best Language: Aphasia (description/naming/reading) - 0(No aphasia) 10. Dysarthria (speech clarity - read or repeat words) - 0(Normal) 11. Extinction and Inattention (visual/tactile/auditory/spatial/personal) - 0(No abnormality) Initials: augusta Signatures: Dispatcher [employer] EDLexii Koch RN RN aa1 Luther Vang MD MD cha Davies, Jonathon RN RN jd3 Corrections: (The following items were deleted from the chart) 00:15 00:15 09/08/2018 00:15 Transfer ordered to Other Acute Care Facility. Diagnosis augusta is Blindness, right eye, low vision left eye - resolved; Ocular pain, right eye; Transient cerebral ischemic attack, unspecified. Reason for transfer: Higher level of care. Accepting physician is to [facility]. Condition is Fair. Problem is new. Symptoms have improved. [facility] 01:26 00:15 09/08/2018 00:15 Transfer ordered to Other Acute Care Facility. Diagnosis augusta is Blindness, right eye, low vision left eye - resolved; Ocular pain, right eye; Transient cerebral ischemic attack, unspecified; Type 1 diabetes mellitus. Reason for transfer: Higher level of care. Accepting physician is to [facility]. Condition is Fair. Problem is new. Symptoms have improved. [facility] 04:11 01:26 09/08/2018 00:15 Transfer ordered to Other Acute Care Facility. Diagnosis aa1 is Blindness, right eye, low vision left eye - resolved; Ocular pain, right eye; Transient cerebral ischemic attack, unspecified; Type 1 diabetes mellitus; Unspecified kidney failure. Reason for transfer: Higher level of care. Accepting physician is to [facility]. Condition is Fair. Problem is new. Symptoms have improved. [facility]
[2018-09-08] MEDS ORDERED: FOLIC ACID 5 MG/ML VIAL ONE (03:57)
[2018-09-08] MEDS ORDERED: MORPHINE 4 MG/ML SYR ONE (04:03)
[2018-09-08] MEDS ORDERED: ONDANSETRON 4 MG/2 ML VIAL ONE (04:05)
[2018-09-08 04:16] VITALS: TEMP 97.5
[2018-09-08 04:18] VITALS: O2SAT 100
[2018-09-08 04:19] VITALS: BP 119/51
--- NOTE | 2018-09-08 08:03 | RAD REPORT ---
EXAM DESCRIPTION: Niru Single View09/07/2018 10:57 pm CLINICAL HISTORY: Cough COMPARISON: July 2018 FINDINGS: The lungs appear clear of acute infiltrate. The heart is normal size. SCHEDULING ASSISTANT shunt courses the left hemithorax IMPRESSION: No acute abnormalities displayed
--- NOTE | 2018-09-08 10:29 | RAD REPORT ---
EXAM DESCRIPTION: Head Brain Wo Cont CLINICAL HISTORY: Dizziness; headache COMPARISON: February 12, 2017 TECHNIQUE: CT HEAD WITHOUT IV CONTRAST on 09/07/2018 10:18 PM CDT This exam was performed according to our departmental dose-optimization program, which includes autom ated exposure control, adjustment of the mA and/or kV according to patient size and/or use of iterati ve reconstruction technique. FINDINGS: There is a vague slightly hyperintense masslike area within the suprasellar region measuri ng 2.8 x 2.8 cm. There is extensive right frontal encephalomalacia. Left frontal [employer] shunt is present with the catheter terminating in the anterior horn of the right lateral ventricle. There is no signif icant volume loss for age. There are mild patchy hypodensities within the periventricular and subcort ical white matter, consistent with microangiopathic ischemic changes. Right frontal craniotomy was performed. Orbits and globes are unremarkable. The paranasal sinuses are clear. Mastoid air cells are clear. 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 Electronically signed by: Freeman Laureano MD 09/07/2018 11:41 PM CDT Due to temporary technical issues with the PACS/Fluency reporting system, reports are being signed by the in house radiologist as a courtesy to ensure prompt reporting. The interpreting radiologist is f ully responsible for the content of the report.
--- NOTE | 2018-09-08 10:33 | RAD REPORT ---
EXAM DESCRIPTION: CT - Head Brain Wo Cont - 09/07/2018 11:54 pm CLINICAL HISTORY: Dizziness; headache COMPARISON: February 12, 2017 TECHNIQUE: CT HEAD WITHOUT IV CONTRAST on 09/07/2018 10:18 PM CDT This exam was performed according to our departmental dose-optimization program, which includes autom ated exposure control, adjustment of the mA and/or kV according to patient size and/or use of iterati ve reconstruction technique. FINDINGS: There is a vague slightly hyperintense masslike area within the suprasellar region measuri ng 2.8 x 2.8 cm. There is extensive right frontal encephalomalacia. Left frontal [employer] shunt is present with the catheter terminating in the anterior horn of the right lateral ventricle. There is no signif icant volume loss for age. There are mild patchy hypodensities within the periventricular and subcort ical white matter, consistent with microangiopathic ischemic changes. Right frontal craniotomy was performed. Orbits and globes are unremarkable. The paranasal sinuses are clear. Mastoid air cells are clear. 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 Electronically signed by: Freeman Laureano MD 09/07/2018 11:41 PM CDT Due to temporary technical issues with the PACS/Fluency reporting system, reports are being signed by the in house radiologist as a courtesy to ensure prompt reporting. The interpreting radiologist is f ully responsible for the content of the report.
--- NOTE | 2018-09-08 10:43 | EKG ---
Test Date: 2018-09-07 Test Time: 23:40:09 Form Setter Helper: ANÍBAL MEASUREMENT RESULTS: Intervals: Rate: 68 OK: 162 QRSD: 90 QT: 422 QTc: 448 [place]: P: -3 OK: 162 QRS: 45 T: 150 INTERPRETIVE STATEMENTS: Normal sinus rhythm Inferior infarct, cited previously T wave abnormality, consider lateral ischemia Abnormal ECG Compared to ECG 09/07/2018 23:36:58 No significant changes Electronically Signed On 09-08-18 10:43:13 CDT by Sanchez Demarco
--- NOTE | 2018-09-08 10:44 | EKG ---
Test Date: 2018-09-07 Test Time: 23:36:58 Mixer Crane Operator: ANÍBAL MEASUREMENT RESULTS: Intervals: Rate: 67 WA: 166 QRSD: 94 QT: 394 QTc: 416 [place]: P: 32 WA: 166 QRS: 48 T: 142 INTERPRETIVE STATEMENTS: Normal sinus rhythm Inferior infarct, cited previously T wave abnormality, consider lateral ischemia Abnormal ECG Compared to ECG 06/05/2018 23:55:46 T-wave abnormality now present Myocardial infarct finding still present Electronically Signed On 09-08-18 10:43:52 CDT by Sanchez Demarco
== END 2018-09-08 04:11 ==
LOC: ER 21:01
DX: G45.9 Transient cerebral ischemic attack, unspecified (principal); H57.11 Ocular pain, right eye; H54.62 Unqualified visual loss, left eye, normal vision right eye; E10.22 Type 1 diabetes mellitus with diabetic chronic kidney disease; N18.9 Chronic kidney disease, unspecified; I25.2 Old myocardial infarction; Z79.4 Long term (current) use of insulin; Z88.6 Allergy status to analgesic agent; Z88.1 Allergy status to other antibiotic agents; Z88.0 Allergy status to penicillin; Z88.8 Allergy status to other drugs, medicaments and biological substances
CPT/HCPCS: 93005 ×2; 87088; 85025; 87086; 80048; 36415; 83735; 85610; 80076; 84484; 83880; 70450; 71045 ×2; J2405; 96361; 96374; 96375; 99285

== ENCOUNTER 2018-12-15 17:19 | Emergency (ER) | payer OTHER ==
--- OUTSIDE RECORDS SUMMARY | 2018-12-15 17:22 | XMS REPORT | Clinical Summary ---
:1945 Author Organization [facility] Address [address] [place] [address] Care Team Providers Name Role Phone Manfred [...] Not on file Results Not on fileafter 12/14/2017 Insurance Payer Benefit Plan / Subscriber ID Type Phone Address Group [employer] - MEDICARE [employer] MED[employer]ARE HMO xxxxxxxx [phone] [address] [place] [address] Advance Directives For more information, please contact:[address] [phone] Code Status Date Activated Date Inactivated Comments Full Code 02/13/2014 10:17 AM 02/13/2014 6:26 PM This code status was determined by: Patient
--- OUTSIDE RECORDS SUMMARY | 2018-12-15 18:01 | XMS REPORT | Continuity of Care Document ---
:1945 Author Organization [employer] Care Team Providers Name Role Phone [employer] Unavailable Unavailable Problems Problem Status Onset Classification Date Comments Source Date Reported Acute 12/01/2018 [facility] right-sided [address] [place] [address] back pain DIABETIC Active [address] MYASTHENIA Active [facility] GRAVIS [address] [place] [address] DYSPHAGIA Active [address] RESOLVED VISION Active [facility] LOSS IN LEFT [address] [place] [address] EYE STROKE SYMPTOMS Active [address] SLURRED SPEECH Active [address] 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 Leticia,[facility] DEHYDRATION,SUE Active [facility] N CONTROL [address] [place] [address] BAD REACTION TO Active [facility] MEDICATION [address] [place] [address] LEG CRAMPS Active [address] DEHYDRATION Active [address] SDH Active 011 Rehabilitation DM - Diabetes Active Problem 03/27/2011 [facility] mellitus [address] [place] [address] HYDROCEPHALUS Active [address] BRAIN MASS Active 011 Rehabilitation BRAIN Active [facility] MASS/AWAKE 011 [facility] LIFE FLIGHT Active [address] Altered mental Active Problem 03/27/2011 [facility] Craniotomy Active Problem 03/27/2011 [facility] HTN - Active Problem 03/27/2011 [facility] Hypertension [facility] Lethargic Inactive Problem 03/27/2011 [facility] Meningioma of Active Problem 03/27/2011 [facility] brain [facility] Visual Active Problem 03/27/2011 [facility] Illness, 09/11/2018 [facility] unspecified City Myasthenia 09/26/2018 [facility] gravis [facility] exacerbation Altered mental Active Problem 12/01/2018 [facility] status Neuro,[facility], DOMONIQUE Kelly,[facility] 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 Neuro,[facility], ODMONIQUE Kelly,[facility] CAD - Coronary Resolved Problem 12/01/2018 [facility] artery disease Neuro,[facility], DOMONIQUE Kelly,[facility] Craniotomy Active Problem 12/01/2018 [facility] Neuro,[facility], DOMONIQUE Kelly,[facility] DM - Diabetes Resolved Problem 12/01/2018 [facility] mellitus Neuro,[facility], DOMONIQUE Kelly,[facility] Heart failure3 Resolved Problem 12/01/2018 systilic [facility] Neuro,[facility], DOMONIQUE Kelly,[facility] HTN - Resolved Problem 12/01/2018 [facility] Hypertension Neuro,[facility], DOMONIQUE Kelly,[facility] Hypothyroid Resolved Problem 12/01/2018 [facility] Neuro,[facility], DOMONIQUE Kelly,[facility] Itching Active Problem 12/01/2018 [facility] Neuro,[facility], DOMONIQUE Kelly,[facility] Meningioma of Active Problem 12/01/2018 [facility] brain Neuro,[facility], DOMONIQUE Kelly,[facility] Morbid obesity Resolved Problem 12/01/2018 [facility] Neuro,[facility], DOMONIQUE Kelly,[facility] JD - Resolved Problem 12/01/2018 [facility] Obstructive Neuro,[facility] sleep apnea [facility], DOMONIQUE Kelly,[facility] Pain Active Problem 12/01/2018 [facility] Neuro,[facility], DOMONIQUE Kelly,[facility] Visual Active Problem 12/01/2018 [facility] disturbance Neuro,[facility], DOMONIQUE Kelly,[facility] Itching Active Problem 03/27/2011 [facility] Pain Active Problem 03/27/2011 [facility] BRAIN NEOPLASM Active NOS Rehabilitation ADMINISTRTVE Active [facility] COMMUNICAT Active [facility] HYDROCEPHALUS [facility] SUBDURAL Active [facility] DEHYDRATION Active [facility] SLURRED SPEECH Active [facility] ILLNESS, Active [facility] UNSPECIFIED [facility] OCULAR PAIN, Active [facility] RIGHT EYE [facility] UNQUALIFIED Active [facility] VISUAL LOSS, City LEFT EYE, [place] MYASTHENIA Active [facility] GRAVIS [facility] (ACUTE) EXACER Medications Medication Details Route Status Patient Ordering Order Source Instructions Provider Date Ibuprofen 400 mg, 1 tab, Inactive 11/29[facility] Route: PO, 2018 Medical Drug form: [place] TAB, ONCE, Dosing Weight 102.273, kg, Priority: STAT, Start date: 11/29/18 9:35:00 CDT, Stop date: 11/29/18 9:35:00 CDT, 0Notes: (Same as: Motrin) "Do Not Crush" Give with food. Tylenol 1,000 mg, 2 Inactive 11/29[facility] tab, Route: 2019 [facility] PO, Drug form: [place] TAB, ONCE, Dosing Weight 102.273, kg, Priority: STAT, Start date: 11/29/18 9:32:00 CDT, Stop date: 11/29/18 9:32:00 CDT, 0Notes: Max acetaminophen 4000 mg/day (4 gm/day). (Same as: Tylenol Extra Strength) Mestinon 60 mg, 1 tab, Inactive 09/23[facility] Route: PO, 2018 Medical Drug form: [facility], Q8Hnow, Dosing Weight 91.818, kg, Start date: 09/23/18 12:00:00 CDT, Duration: 30 day, Stop date: 10/23/18 4:00:00 CDTNotes: (Same as: Mestinon) Insulin Lispro 15 unit, 0.15 Inactive 09/23[facility] mL, Route: 2018 [facility] SUB-Q, Drug Center form: SOLN, TID-Before Meals, Dosing Weight 91.818, kg, PRN Blood Glucose Results, Start date: 09/23/18 3:43:00 CDT, Duration: 30 day, Stop date: 10/23/18 3:42:00 CDTNotes: (Same as: Humalog) Roll in palms of hands gently; Do not shake vigorously. WASTE: F/P - Black; E - Municipal Trash Bin Stable for 28 days at room temperature. Expires in days from Date Glucagon 1 mg, Route: Inactive 09/23[facility] IM, Drug form: 2019 Medical PDR/INJ, PRN, Center Dosing Weight 91.818, kg, PRN Blood Glucose Results, Start date: 09/23/18 3:43:00 CDT, Duration: 30 day, Stop date: 10/23/18 3:42:00 CDT Dextrose 50% 12.5 gm, 25 Inactive [place] Syringe mL, Route: 2019 Medical IVP, Drug Center Form: INJ, Dosing Weight 91.818, kg, PRN, PRN Blood Glucose Results, Start date: 09/23/18 3:43:00 CDT, Duration: 30 day, Stop date: 10/23/18 3:42:00 CDT Arixtra 2.5 mg, 0.5 No Longer [place] mL, Route: Active 2019 Medical SUB-Q, Drug Center form: SOLN, Q24H, Dosing Weight 91.818, kg, Start date: 09/22/18 17:00:00 CDT, Duration: 30 day, Stop date: 10/21/18 17:00:00 CDTNotes: (Same as: Arixtra) Famotidine 20 mg, 1 tab, No Longer [place] Route: PO, Active 2019 Medical Drug form: Center TAB, Daily, Dosing Weight 91.818, kg, Start date: 09/22/18 9:00:00 CDT, Duration: 30 day, Stop date: 10/21/18 9:00:00 CDTNotes: (Same as: Pepcid) sennosides, MCFP 8.6 mg, 1 tab, No Longer [place] 8.6 MG Oral Tablet Route: PO, Active 2019 Medical Drug Form: Center TAB, Dosing Weight 91.818, kg, BID, Start date: 09/22/18 9:00:00 CDT, Duration: 30 day, Stop date: 10/21/18 17:00:00 CDTNotes: (Same as: Senokot) ropinirole 2 mg, 2 tab, No Longer [place] Route: PO, Active 2019 Medical Drug form: Center TAB, Daily, Dosing Weight 91.818, kg, Start date: 09/22/18 9:00:00 CDT, Duration: 30 day, Stop date: 10/21/18 9:00:00 CDTNotes: (Same as: Requip) Ramipril 10 mg, 2 cap, No Longer [place] Route: PO, Active 2019 Medical Drug form: Center CAP, Daily, Dosing Weight 91.818, kg, Start date: 09/22/18 9:00:00 CDT, Duration: 30 day, Stop date: 10/21/18 9:00:00 CDTNotes: (Same as:Altace) Prednisone 60 mg, 3 tab, No Longer [place] Route: PO, Active 2018 Medical Drug form: Center TAB, Daily, Dosing Weight 91.818, kg, Start date: 09/22/18 9:00:00 CDT, Duration: 30 day, Stop date: 10/21/18 9:00:00 CDTNotes: Take with food. Furosemide 20 MG 20 mg, 1 tab, No Longer [place] Oral Tablet Route: PO, Active 2018 Medical Drug form: Center TAB, Every Other Day, Dosing Weight 91.818, kg, Start date: 09/22/18 9:00:00 CDT, Duration: 30 day, Stop date: 10/20/18 9:00:00 CDTNotes: (Same as: Lasix) May cause GI upset. Give with food or milk. Amlodipine 10 mg, 1 tab, No Longer [place] Route: PO, Active 2018 Medical Drug form: Center TAB, Daily, Dosing Weight 91.818, kg, Start date: 09/22/18 9:00:00 CDT, Duration: 30 day, Stop date: 10/21/18 9:00:00 CDTNotes: (Same as: Norvasc) Docusate Sodium 50 1 tab, Route: No Longer [facility] MG / sennosides, PO, Drug Form: Active 2019 Medical MCFP 8.6 MG Oral TAB, Dosing Center Tablet Weight 91.818, kg, Daily, Start date: 09/22/18 9:00:00 CDT, Duration: 30 day, Stop date: 10/21/18 9:00:00 CDTNotes: (Same as Senokot-S) Equiv. to Cassidy-Colace. Levothroid 88 mcg 88 microgram=1 Active [facility] (0.088 mg) oral tab, PO, 2019 Medical tablet Daily, 0 [place] Refill(s) rosuvastatin 20 mg, 2 tab, No Longer [place] Route: PO, Active 2018 Medical Drug form: [place] TAB, Bedtime, Dosing Weight 91.818, kg, Start date: 09/21/18 21:00:00 CDT, Duration: 30 day, Stop date: 10/20/18 21:00:00 CDTNotes: (Same As: Crestor) Insulin Glargine 20 unit, 0.2 No Longer [place] 100 UNT/ML mL, Route: Active 2018 Medical Injectable SUB-Q, Drug Center Solution form: SOLN, Bedtime, Dosing Weight 91.818, kg, Start date: 09/21/18 21:00:00 CDT, Duration: 30 day, Stop date: 10/20/18 21:00:00 CDT Sertraline 25 mg, 1 tab, No Longer [place] Route: PO, Active 2018 Medical Drug form: [place] TAB, Q24H, Dosing Weight 91.818, kg, Start date: 09/21/18 19:00:00 CDT, Duration: 30 day, Stop date: 10/20/18 19:00:00 CDTNotes: (Same as: Zoloft) Pyridostigmine 90 mg, 1.5 No Longer [place] tab, Route: Active 2019 Medical PO, Drug form: [place] TAB, Q8Hnow, Dosing Weight 91.818, kg, Start date: 09/21/18 19:00:00 CDT, Duration: 30 day, Stop date: 10/21/18 11:00:00 CDTNotes: (Same as: Mestinon) Dextrose 50% 25 gm, 50 mL, No Longer [place] Syringe Route: IVP, Active 2018 Medical Drug Form: [place] INJ, Dosing Weight 91.818, kg, PRN, PRN Abnormal Lab Result, Start date: 09/21/18 18:24:00 CDT, Duration: 30 day, Stop date: 10/21/18 18:23:00 CDT Regular Insulin, 5 unit, 0.05 No Longer [place] Human 100 UNT/ML mL, Route: Active 2019 Medical Injectable SUB-Q, Drug Center Solution form: SOLN, PRN, Dosing Weight 91.818, kg, PRN Abnormal Lab Result, Start date: 09/21/18 18:24:00 CDT, Duration: 30 day, Stop date: 10/21/18 18:23:00 CDTNotes: (Same as: Humulin R) Roll in palms of hands gently; Do not shake vigorously. WASTE: F/P - Black; E - Municipal Trash Bin Stable for 31 days at room temperature Expires in days from Date Docusate 100 mg, 1 cap, No Longer [place] Route: PO, Active 2019 Medical Drug form: [place] DOOLEY, Bedtime, Dosing Weight 91.818, kg, PRN Constipation, Start date: 09/21/18 18:18:00 CDT, Duration: 30 day, Stop date: 10/21/18 18:17:00 CDTNotes: (Same as: Colace) (Do Not Crush) Occupational See On Hold [facility] Therapy Instructions, 2019 [facility], COUNTS INCLUDE 234 BEDS AT THE [facility], [place] Evaluate and Treat __3_ times per week for __4__ weeks, # 1 bag, 0 Refill(s) Physical Therapy See On Hold [place] Instructions, 2019 [facility], COUNTS INCLUDE 234 BEDS AT [facility], [place] Evaluate and Treat _3__ times per week for __4__ weeks, # 1 bag, 0 Refill(s) Ramipril 10 mg, 2 cap, Inactive [place] Route: PO, 2019 Medical Drug form: [place] CAP, ONCE, Dosing Weight 91.378, kg, Priority: NOW, Start date: 09/19/18 10:56:00 CDT, Stop date: 09/19/18 10:56:00 CDTNotes: (Same as:Altace) Furosemide 20 MG 20 mg=1 tab, On Hold [facility] Oral Tablet PO, Every 2019 Medical Other Day, # Center 15 tab, 3 Refill(s) amLODIPine 10 mg 10 mg=1 tab, On Hold [facility] oral tablet PO, Daily, # 2019 Medical 30 tab, 3 Center Refill(s) predniSONE 20 mg 60 mg=3 tab, On Hold [place] oral tablet PO, Daily, X 2019 Medical 30 day, # 90 Center tab, 0 Refill(s) pyridostigmine 60 60 mg=1 tab, On Hold [place] mg oral tablet PO, Q8Hnow, # 2019 Medical 90 tab, 3 Center Refill(s) ramipril 5 mg oral 10 mg=2 cap, On Hold [place] capsule PO, Daily, # 2019 Medical 60 cap, 3 Center Refill(s) sennosides, MCFP 8.6 mg=1 tab, On Hold [place] 8.6 MG Oral Tablet PO, BID, X 30 2019 Medical day, # 60 tab, Center 3 Refill(s) sertraline 25 mg 25 mg=1 tab, On Hold [place] oral tablet PO, Q24H, # 30 2019 Medical tab, 0 Center Refill(s) insulin, isophane 12 unit, 0.12 No Longer [place] mL, Route: Active 2018 Medical SUB-Q, Drug Center form: INJ, BID, Dosing Weight 91.378, kg, Start date: 09/18/18 17:00:00 CDT, Duration: 30 day, Stop date: 10/18/18 9:00:00 CDTNotes: (Same as: Humulin N) Roll in palms of hands gently; Do not shake vigorously. WASTE: F/P - Black; E - Municipal Trash Bin Stable for 31 days at room temperature Expires in days from Date gabapentin 300 MG 300 mg, Route: Inactive [place] Oral Capsule PO, Drug form: 2019 Medical CAP, ONCE, Center Dosing Weight 91.378, kg, Start date: 09/18/18 0:54:00 CDT, Stop date: 09/18/18 0:54:00 CDT normal saline 0.9% 1,000 mL, No Longer [place] IV 1,000 mL Rate: 75 Active 2018 Medical ml/hr, Infuse Center over: 13.3 hr, Route: IV, Dosing Weight 91.378 kg, Total Volume: 1,000, Start date: 09/18/18 0:54:00 CDT, Duration: 30 day, Stop date: 10/18/18 0:53:00 CDT, 1.99, m2 ramipril 5 mg oral 10 mg=2 cap, No Longer [place] capsule PO, Daily, # Active 2019 Medical 30 cap, 1 Center Refill(s), Pharmacy: [facility]/pharmacy #[id number] metoprolol 25 mg=1 tab, No Longer [place] tartrate 25 mg PO, Q12H, # 60 Active 2019 Medical oral tablet tab, 1 Center Refill(s), Pharmacy: [facility]/pharmacy #[id number] Furosemide 20 MG 20 mg=1 tab, No Longer [place] Oral Tablet PO, Every Active 2019 Medical Other Day, # Center 30 tab, 1 Refill(s), Pharmacy: [facility]/pharmacy #[id number] amLODIPine 10 mg 10 mg=1 tab, No Longer [place] oral tablet PO, Daily, # Active 2019 Medical 30 tab, 1 Center Refill(s), Pharmacy: [facility]/pharmacy #[id number] sertraline 25 mg 25 mg=1 tab, No Longer [place] oral tablet PO, Q24H, # 30 Active 2018 Medical tab, 1 Center Refill(s), Pharmacy: [facility]/pharmacy #[id number] sennosides, MCFP 8.6 mg=1 tab, No Longer [place] 8.6 MG Oral Tablet PO, BID, # 60 Active 2018 Medical tab, 0 Center Refill(s), Pharmacy: [facility]/pharmacy #[id number] pyridostigmine 60 60 mg=1 tab, No Longer [place] mg oral tablet PO, Q8Hnow, # Active 2019 Medical 90 tab, 1 Center Refill(s), Pharmacy: [facility]/pharmacy #[id number] predniSONE 20 mg 60 mg=3 tab, No Longer [place] oral tablet PO, Daily, # Active 2018 Medical 30 tab, 1 Center Refill(s), Pharmacy: [facility]/pharmacy #[id number] Insulin regular 2 unit, 0.02 No Longer [place] mL, Route: Active 2018 Medical SUB-Q, Drug Center form: SOLN, Bedtime, Dosing Weight 91.378, kg, PRN Blood Glucose Results, Start date: 09/17/18 18:52:00 CDT, Duration: 30 day, Stop date: 10/17/18 18:51:00 CDTNotes: (Same as: Humulin R) Roll in palms of hands gently; Do not shake vigorously. WASTE: F/P - Black; E - Municipal Trash Bin Stable for 31 days at room temperature Expires in days from Date Glucagon 1 mg, Route: No Longer [facility] IM, Drug form: Active 2019 Medical PDR/INJ, PRN, Center Dosing Weight 91.378, kg, PRN Blood Glucose Results, Start date: 09/17/18 18:52:00 CDT, Duration: 30 day, Stop date: 10/17/18 18:51:00 CDT Dextrose 50% in 25 gm, 50 mL, No Longer [place] Water (bolus) IV Route: IVP, Active 2019 Medical Drug Form: Center INJ, Dosing Weight 91.378, kg, PRN, PRN Blood Glucose Results, Start date: 09/17/18 18:52:00 CDT, Duration: 30 day, Stop date: 10/17/18 18:51:00 CDT Melatonin 0.25 1 mg, Route: Inactive [place] mg/mL oral liquid PO, Dosing 2019 Medical Weight 91.378, Center kg, Bedtime, Start date: 09/16/18 21:00:00 CDT, Duration: 30 day, Stop date: 10/15/18 21:00:00 CDT insulin, isophane 5 unit, 0.05 No Longer [place] mL, Route: Active 2019 Medical SUB-Q, Drug Center form: INJ, Q8H, Dosing Weight 91.378, kg, Start date: 09/16/18 10:30:00 CDT, Duration: 30 day, Stop date: 10/16/18 1:30:00 CDTNotes: (Same as: Humulin N) Roll in palms of hands gently; Do not shake vigorously. WASTE: F/P - Black; E - Municipal Trash Bin Stable for 31 days at room temperature Expires in days from Date Amlodipine 10 mg, 1 tab, No Longer [facility] Route: PO, Active 2018 Medical Drug form: [place] TAB, Daily, Dosing Weight 91.378, kg, Start date: 09/16/18 9:00:00 CDT, Duration: 30 day, Stop date: 10/15/18 9:00:00 CDTNotes: (Same as: Norvasc) melatonin 1 mg/mL 1 mg, 1 mL, Inactive [place] oral solution Route: PO, 2018 Medical Drug Form: [place] LIQ, Dosing Weight 91.378, kg, ONCE, STAT, Start date: 09/16/18 0:53:00 CDT, Stop date: 09/16/18 0:53:00 CDT insulin, isophane 15 unit, Inactive [facility] Route: SUB-Q, 2018 Medical Drug form: [place] INJ, Q8H, Dosing Weight 91.378, kg, Start date: 09/16/18 0:00:00 CDT, Duration: 30 day, Stop date: 10/15/18 16:00:00 CDTNotes: (Same as: Humulin N) Roll in palms of hands gently; Do not shake vigorously. WASTE: F/P - Black; E - Municipal Trash Bin Stable for 31 days at room temperature Expires in days from Date Insulin regular 10 unit, 0.1 Inactive [place] mL, Route: 2019 Medical SUB-Q, Drug Center form: SOLN, ONCE, Dosing Weight 91.378, kg, Start date: 09/15/18 20:34:00 CDT, Stop date: 09/15/18 20:34:00 CDTNotes: (Same as: Humulin R) Roll in palms of hands gently; Do not shake vigorously. WASTE: F/P - Black; E - Municipal Trash Bin Stable for 31 days at room temperature Expires in days from Date Miralax 17 gm, 1 pkt, No Longer [facility] Route: GT, Active 2018 Medical Drug form: [place] PWDR, Daily, Dosing Weight 91.378, kg, Start date: 09/15/18 9:00:00 CDT, Duration: 30 day, Stop date: 10/14/18 9:00:00 CDTNotes: Dissolve in 8 oz of water or juice. (Same as: Miralax) lansoprazole 30 mg, 10 mL, No Longer [place] Route: GT, Active 2018 Medical Drug form: Center SUSP, Daily, Dosing Weight 91.378, kg, Start date: 09/15/18 9:00:00 CDT, Duration: 30 day, Stop date: 10/14/18 9:00:00 CDTNotes: Take 1 hour before or 2 hours after meal; Expires in 14 days. Shake well before use. (Same as:Prevacid) Compounded Product - formulation not commercially available insulin, isophane 15 unit, 0.15 Inactive [place] mL, Route: 2019 Medical SUB-Q, Drug Center form: INJ, Q8H, Dosing Weight 91.378, kg, Start date: 09/15/18 0:00:00 CDT, Duration: 30 day, Stop date: 10/14/18 16:00:00 CDTNotes: (Same as: Humulin N) Roll in palms of hands gently; Do not shake vigorously. WASTE: F/P - Black; E - Municipal Trash Bin Stable for 31 days at room temperature Expires in days from Date Saline Flush 0.9% 10 ml, Route: No Longer [place] MISC, Drug Active 2018 Medical Form: INJ, Center Dosing Weight 91.378, kg, Q12H, Start date: 09/14/18 21:00:00 CDT, Duration: 30 day, Stop date: 10/14/18 9:00:00 CDTNotes: (Same as: BD Posiflush) Lasix 40 mg, 4 mL, Inactive [place] Route: IVP, 2018 Medical Drug form: Center INJ, ONCE, Dosing Weight 91.378, kg, Start date: 09/14/18 21:00:00 CDT, Stop date: 09/14/18 21:00:00 CDTNotes: (Same as: Lasix) MEDICATION WASTE Product Size: 40 mg Product Wasted: ___ mg docusate sodium 100 mg, 1 cap, No Longer [place] 100 mg oral Route: PO, Active 2019 Medical capsule Drug form: Center CAP, BID, Dosing Weight 91.378, kg, Start date: 09/14/18 17:00:00 CDT, Duration: 30 day, Stop date: 10/14/18 9:00:00 CDTNotes: (Same as: Colace) (Do Not Crush) sennosides, MCFP 8.6 mg, 1 tab, No Longer [place] Route: PO, Active 2019 Medical Drug Form: Center TAB, Dosing Weight 91.378, kg, BID, Start date: 09/14/18 17:00:00 CDT, Duration: 30 day, Stop date: 10/14/18 9:00:00 CDTNotes: (Same as: Senokot) insulin, isophane 10 unit, 0.1 Inactive [place] mL, Route: 2019 Medical SUB-Q, Drug Center form: INJ, Q8H, Dosing Weight 91.378, kg, Priority: NOW, Start date: 09/14/18 16:22:00 CDT, Duration: 30 day, Stop date: 10/14/18 16:00:00 CDTNotes: (Same as: Humulin N) Roll in palms of hands gently; Do not shake vigorously. WASTE: F/P - Black; E - Municipal Trash Bin Stable for 31 days at room temperature Expires in days from Date Insulin regular 12 unit, 0.12 No Longer [place] mL, Route: Active 2018 Medical SUB-Q, Drug Center form: SOLN, Sliding Scale, Dosing Weight 91.378, kg, PRN Blood Glucose Results, Start date: 09/14/18 16:20:00 CDT, Duration: 30 day, Stop date: 10/14/18 16:19:00 CDTNotes: (Same as: Humulin R) Roll in palms of hands gently; Do not shake vigorously. WASTE: F/P - Black; E - Municipal Trash Bin Stable for 31 days at room temperature Expires in days from Date Glucagon 1 mg, Route: No Longer [facility] IM, Drug form: Active 2019 Medical PDR/INJ, PRN, Center Dosing Weight 91.378, kg, PRN Blood Glucose Results, Start date: 09/14/18 16:20:00 CDT, Duration: 30 day, Stop date: 10/14/18 16:19:00 CDT Dextrose 50% 12.5 gm, 25 No Longer [facility] Syringe mL, Route: Active 2019 Medical IVP, Drug Center Form: INJ, Dosing Weight 91.378, kg, PRN, PRN Blood Glucose Results, Start date: 09/14/18 16:20:00 CDT, Duration: 30 day, Stop date: 10/14/18 16:19:00 CDT Saline Flush 0.9% 10 ml, Route: No Longer [facility] IVP, Drug Active 2019 Medical Form: INJ, Center Dosing Weight 91.378, kg, PRN, PRN Line Flush, Start date: 09/14/18 11:01:00 CDT, Duration: 30 day, Stop date: 10/14/18 11:00:00 CDTNotes: (Same as: BD Posiflush) Nystatin 100 1 appl, Route: No Longer [place] UNT/MG Topical TOP, PRN, Drug Active 2018 Medical Powder form: PWDR, [place] PRN For Fungal Prophylaxis, Start date: 09/14/18 11:01:00 CDT, Duration: 30 day, Stop date: 10/14/18 11:00:00 CDTNotes: (Same as:Mycostatin, Nilstat) For external use only. Amlodipine 5 mg, 1 tab, No Longer [facility] Route: GT, Active 2019 Medical Drug form: [place] TAB, Daily, Dosing Weight 91.378, kg, Start date: 09/14/18 9:00:00 CDT, Duration: 30 day, Stop date: 10/13/18 9:00:00 CDTNotes: (Same as: Norvasc) Lasix 40 mg, 4 mL, Inactive [place] Route: IV, 2019 Medical Drug form: [place] INJ, ONCE, Dosing Weight 91.378, kg, Priority: NOW, Start date: 09/14/18 8:45:00 CDT, Stop date: 09/14/18 8:45:00 CDTNotes: (Same as: Lasix) MEDICATION WASTE Product Size: 40 mg Product Wasted: ___ mg Albuterol 0.833 3 ml, Route: No Longer [place] MG/ML / NEB, Drug Active 2019 Medical Ipratropium Form: SOLN, [place] 0.167 Dosing Weight MG/ML Inhalant 91.378, kg, Solution [DuoNeb] PRN, PRN Respiratory Pathway, Start date: 09/14/18 7:48:00 CDT, Duration: 30 day, Stop date: 10/14/18 7:47:00 CDTNotes: (Same as: Duoneb) Potassium Chloride 40 mEq, 30 mL, Inactive [place] 1.33 MEQ/ML Oral Route: GT, 2019 Medical Solution Drug form: [place] LIQ, ONCE, Dosing Weight 91.378, kg, Start date: 09/14/18 2:31:00 CDT, Stop date: 09/14/18 2:31:00 CDTNotes: (Same as: Potassium Chloride) Sertraline 25 mg, 1 tab, No Longer [place] Route: PO, Active 2019 Medical Drug form: [place] TAB, Q24H, Dosing Weight 91.378, kg, Start date: 09/13/18 21:00:00 CDT, Duration: 30 day, Stop date: 10/12/18 21:00:00 CDTNotes: (Same as: Zoloft) Immunoglobulin G 25 gm, Route: No Longer [place] IV, Q24H, Active 2019 Medical Dosing Weight [place] 91.378, kg, Start date: 09/13/18 21:00:00 CDT, Duration: 1 day, Stop date: 09/13/18 21:00:00 CDT, Indication: Myasthenia gravis metoprolol 25 mg, 1 tab, No Longer [place] tartrate Route: PO, Active 2019 Medical Drug form: [place] TAB, Q12H, Dosing Weight 91.378, kg, Start date: 09/13/18 21:00:00 CDT, Duration: 30 day, Stop date: 10/13/18 9:00:00 CDTNotes: (Same as: Lopressor) Gamunex-C 25 gm + Route: IVPB, Inactive [facility] empty container 1 Drug form: 2019 Medical bag SOLN, Bedtime, Center Start date: 09/13/18 15:00:00 CDT, Duration: 1 doses or times, Stop date: 09/13/18 15:00:00 CDT, Indication: Myasthenia gravisNotes: WASTE: F/P - Red; E -Red Lot # ____Mfg: (Gamunex - C) "blood product derivative" iodixanol 100 mL, Route: Inactive [place] IVP, Drug 2019 Medical Form: SOLN, [place] Dosing Weight 91.378, kg, ONCALL, STAT, Start date: 09/13/18 11:50:00 CDT, Duration: 1 doses or times, Dose=2.2ml/kg, Max [id number] -- "To be infused by Radiology Staff ONLY" Prednisone 60 mg, 3 tab, No Longer [facility] Route: PO, Active 2019 Medical Drug form: Center TAB, Daily, Dosing Weight 91.378, kg, Start date: 09/13/18 9:00:00 CDT, Duration: 10 doses or times, Stop date: 09/22/18 9:00:00 CDTNotes: Take with food. pantoprazole 40 mg, Route: No Longer [facility] IVP, Drug Active 2019 Medical form: INJ, Center Daily, Dosing Weight 91.378, kg, Start date: 09/13/18 9:00:00 CDT, Duration: 30 day, Stop date: 10/12/18 9:00:00 CDTNotes: For IV push reconstitute with 10 ml 0.9% sodium chloride and push over 2 minutes. (Same as: Protonix) chlorhexidine 15 mL, Route: No Longer [facility] gluconate 1.2 Swab Mouth, Active 2019 Medical MG/ML Mouthwash Q12H, Drug Center form: LIQ, Start date: 09/13/18 9:00:00 CDT, Duration: 30 day, Stop date: 10/12/18 21:00:00 CDTNotes: (Same As: Peridex) Norepinephrine 8 mg, 8 mL, Inactive [place] Rate: Titrate, 2018 Medical Start Dose: 5 Center microgram/min, Titration: 2 microgram/min every 2-5 minutes, Goal(s): MAP >=65 mmHg, Max Dose: 70 microgram/min, Route: IV, Dosing Weight 91.378 kg, Total Volume: 250, Start date: 09/13/18 6:04:00 CDT, Duratio...Note s: Not for direct administration - DILUTE. Protect from light. (Same as:Levophed). Administer by either central venous catheter or peripherally-i nserted central catheter (PICC) line. propofol 10 mg/mL 1,000 mg, 100 No Longer [place] (Titrate.) IV mL, Rate: Active 2018 Medical 1,000 mg Titrate, Start Center Dose: 5 microgram/kg/m in, Titration: 5 microgram/kg/m in every 15 min, Goal(s): RASS 0 to -1, Max Dose: 50 microgram/kg/m in, Route: IV, Dosing Weight 91.378 kg, Total Volume: 100, Start date: 09/13/18 6:04:00 CDT,...Notes: If Diprivan - change bottle & tubing every 12 hr Per state nursing law propofol can only be given by a nurse if patient is intubated or being intubated (unless the nurse is a CLIENT LEADER). Same as: Diprivan Rocuronium 20 mg, 2 mL, Inactive [place] Route: IV, 2018 Medical Drug form: [place] SOLN, ONCE, Dosing Weight 91.378, kg, Start date: 09/13/18 6:01:00 CDT, Stop date: 09/13/18 6:01:00 CDTNotes: (Same as: Zemeron) Fentanyl 250 microgram, Inactive [place] 5 mL, Route: 2019 Medical IV, Drug form: [place] INJ, ONCE, Dosing Weight 91.378, kg, Start date: 09/13/18 6:01:00 CDT, Stop date: 09/13/18 6:01:00 CDTNotes: (Same as: Sublimaze) Preservative free. Propofol 100 mg, 10 mL, Inactive [place] Route: IV, 2019 Medical Drug form: Center Emulsion, ONCE, Dosing Weight 91.378, kg, Start date: 09/13/18 6:01:00 CDT, Stop date: 09/13/18 6:01:00 CDTNotes: If Diprivan - change bottle & tubing every 12 hr Per state nursing law propofol can only be given by a nurse if patient is intubated or being intubated (unless the nurse is a CLIENT LEADER). Same as: Diprivan ocular lubricant 1 appl, Route: No Longer [place] BOTH EYES, Active 2018 Medical Q6H, Drug Center form: OINT, Start date: 09/13/18 6:00:00 CDT, Duration: 30 day, Stop date: 10/13/18 0:00:00 CDTNotes: (Same as: Lacri-Lube, Puralube, Duratears Naturale, Artificial Tears, and Tears Again ) normal saline 0.9% 1,000 mL, No Longer [place] IV 1,000 mL Rate: 75 Active 2018 Medical ml/hr, Infuse Center over: 13.3 hr, Route: IV, Dosing Weight 91.378 kg, Total Volume: 1,000, Start date: 09/13/18 5:43:00 CDT, Duration: 30 day, Stop date: 10/13/18 5:42:00 CDT, 1.99, m2 chlorhexidine 15 mL, Route: No Longer [place] gluconate 1.2 Swab Mouth, Active 2018 Medical MG/ML Mouthwash PRN, Drug Center form: LIQ, PRN Other -See Comment, Start date: 09/13/18 2:43:00 CDT, Duration: 30 day, Stop date: 10/13/18 2:42:00 CDTNotes: (Same As: Peridex) Insulin regular 100 mL, Rate: No Longer [place] 100 unit + Start at 0.05 Active 2018 Medical units/kg/hour- Center , Dosing Weight 91.378, kg, Route: IVPB, Total Volume: 100, Start Date: 09/13/18 1:52:00 CDT, Duration: 30 day, Stop date: 10/13/18 1:51:00 CDT, Replace Every: 24 hrNotes: Final Concentration 1unit/1ml WASTE: F/P - Black; E - Municipal Trash Bin Dextrose 50% 6.25 gm, 12.5 No Longer [place] Syringe mL, Route: Active 2019 Medical IVP, Drug Center Form: INJ, Dosing Weight 91.378, kg, PRN, PRN Abnormal Lab Result, Start date: 09/13/18 1:52:00 CDT, Duration: 30 day, Stop date: 10/13/18 1:51:00 CDT Adult Parenteral 2,040 mL, No Longer [place] Nutrition Custom - Rate: Titrate, Active 2019 Medical Peripheral (PPN Dosing Weight Center not TPN) 2,040 mL 91.378, kg, Route: IV, Total Volume: 2,040 mL, Start Date: 09/12/18 22:00:00 CDT, Stop date: 09/14/18 3:59:00 CDT, Replace Every: 24 hrNotes: Must use 1.2 micron filter AND Lipids should not be administered to patients who are allergic to soy, fish, egg or peanuts. Immunoglobulin G 50 gm, Route: Inactive [place] IV, Q24H, 2019 Medical Dosing Weight Center 91.378, kg, Start date: 09/12/18 21:00:00 CDT, Duration: 1 day, Stop date: 09/12/18 21:00:00 CDT, Indication: Myasthenia gravis Gamunex-C 75 gm + Route: IVPB, Inactive [facility] empty container 1 Drug form: 2019 Medical bag SOLN, Bedtime, Center Start date: 09/12/18 21:00:00 CDT, Duration: 1 doses or times, Stop date: 09/12/18 21:00:00 CDT, Indication: Myasthenia gravis Gamunex-C 50 gm + Route: IVPB, Inactive [facility] empty container 1 Drug form: 2019 Medical bag SOLN, Bedtime, Center Start date: 09/12/18 21:00:00 CDT, Duration: 1 doses or times, Stop date: 09/12/18 21:00:00 CDT, Indication: Myasthenia gravisNotes: WASTE: F/P - Red; E -Red Lot # ____Mfg: (Gamunex - C) Non-Formulary "blood product derivative" Pyridostigmine 60 mg, 1 tab, No Longer [place] Route: PO, Active 2019 Medical Drug form: [place] TAB, Q8Hnow, Dosing Weight 91.378, kg, Priority: STAT, Start date: 09/12/18 19:09:00 CDT, Duration: 30 day, Stop date: 10/12/18 11:09:00 CDTNotes: (Same as: Mestinon) Calcium Carbonate 1,000 mg, 2 No Longer [place] 500 MG Chewable tab, Route: Active 2018 Medical Tablet PO, Drug form: [place] CHEWTAB, PRN, Dosing Weight 91.378, kg, PRN Abnormal Lab Result, FOR ICU USE ONLY, Start date: 09/12/18 16:44:00 CDT, Duration: 30 day, Stop date: 10/12/18 16:43:00 CDTNotes: (Same As: Tums) Calcium Carbonate 500 dy=650 mg elemental calcium Dose= mg calcium carbonate ( mg elemental calcium) Calcium Gluconate 1 gm, 10 mL, No Longer [place] Route: IVPB, Active 2018 Medical PRN, Dosing Center Weight 91.378, kg, PRN Abnormal Lab Result, Start date: 09/12/18 16:44:00 CDT, Duration: 30 day, Stop date: 10/12/18 16:43:00 CDT, FOR ICU USE ONLYNotes: WASTE: F/P - Sink; E - Municipal Trash Bin Magnesium Oxide 800 mg, 2 tab, No Longer [place] Route: PO, Active 2018 Medical Drug form: [place] TAB, PRN, Dosing Weight 91.378, kg, PRN Abnormal Lab Result, FOR ICU USE ONLY, Start date: 09/12/18 16:44:00 CDT, Duration: 30 day, Stop date: 10/12/18 16:43:00 CDTNotes: (Same as: Mag-Ox 400) Magnesium oxide [id number] elemental magnesium Dose=____mg magnesium oxide (___mg elemental magnesium) Magnesium Sulfate 2 gm, 50 mL, No Longer [place] Route: IVPB, Active 2019 Medical Drug form: [place] INJ, PRN, Dosing Weight 91.378, kg, PRN Abnormal Lab Result, Start date: 09/12/18 16:44:00 CDT, Duration: 30 day, Stop date: 10/12/18 16:43:00 CDT, FOR ICU USE ONLYNotes: WASTE: F/P - Sink; E - Municipal Trash Bin potassium 2 pkt, Route: No Longer [place] phosphate-sodium PO, Drug Form: Active 2019 Medical phosphate 250 TAB, Dosing Center mg-280 mg-160 mg Weight 91.378, oral powder for kg, PRN, PRN reconstitution Abnormal Lab Result, FOR ICU USE ONLY, Start date: 09/12/18 16:44:00 CDT, Duration: 30 day, Stop date: 10/12/18 16:43:00 CDTNotes: (Same as: K-Phos Neutral, Phospha 250 Neutral) Potassium Chloride 20 mEq, 1 tab, No Longer [place] Route: PO, Active 2018 Medical Drug form: [place] ERTAB, PRN, Dosing Weight 91.378, kg, PRN Abnormal Lab Result, Start date: 09/12/18 16:44:00 CDT, Duration: 30 day, Stop date: 10/12/18 16:43:00 CDT, FOR ICU USE ONLYNotes: (Same as: K-Dur 20) "Do Not Crush" Give with food and full glass of water For patients unable to swallow tablet, dissolve in one half glass of water. Allow about 2 minutes for the tablets to disintegrate. Stir before giving to prepare slurry and administer. Please exclude Patient’ s with feeding tube less than 14 [place] (Dobhoff, J-tube etc) and pediatric and patients. sodium phosphate 15 mmol, 5 mL, No Longer [place] Route: IVPB, Active 2019 Medical PRN, Dosing Center Weight 91.378, kg, PRN Abnormal Lab Result, Start date: 09/12/18 16:44:00 CDT, Duration: 30 day, Stop date: 10/12/18 16:43:00 CDT, FOR ICU USE ONLYNotes: Infuse over 4 hour. Do not infuse phosphorous concurrently in the same line as TPN or IVF that contains calcium. For double lumen central lines, phosphorous may be infused in a separate lumen from TPN. potassium 45 mmol, 15 No Longer [facility] phosphate mL, Route: Active 2019 Medical IVPB, PRN, Center Dosing Weight 91.378, kg, PRN Abnormal Lab Result, Start date: 09/12/18 16:44:00 CDT, Duration: 30 day, Stop date: 10/12/18 16:43:00 CDT, FOR ICU USE ONLYNotes: (Same as: K Phosphate.) Do not infuse phosphorous concurrently in the same line as TPN or IVF that contains calcium. For double lumen central lines, phosphorous may be infused in a separate lumen from TPN. 1 mMol phoshate has 1.47 mEq potassium Infuse over 4 hours benzocaine topical 1 appl, Route: No Longer [facility] gel TOP, ONCE, Active 2019 Medical Drug form: [place] GEL, PRN Mouth Pain, Start date: 09/12/18 16:38:00 CDTNotes: (Same As: Maximum Strength PM Orajel ) Immunoglobulin G 75 gm, Route: Inactive [facility] IV, Drug form: 2019 Medical INJ, Q24H, [place] Dosing Weight 91.378, kg, Start date: 09/12/18 12:00:00 CDT, Duration: 1 doses or times, Stop date: 09/12/18 12:00:00 CDT, Indication: Myasthenia gravis Magnesium Sulfate 2 gm, 50 mL, Inactive [facility] Route: IVPB, 2019 Medical Drug form: [place] INJ, BID, Dosing Weight 91.378, kg, Start date: 09/12/18 9:00:00 CDT, Duration: 2 doses or times, Stop date: 09/12/18 17:00:00 CDTNotes: WASTE: F/P - Sink; E - Municipal Trash Bin Calcium Gluconate 1,000 mg, 10 Inactive [place] mL, Route: 2019 Medical IVPB, ONCE, Center Dosing Weight 91.378, kg, Start date: 09/12/18 7:20:00 CDT, Stop date: 09/12/18 7:20:00 CDTNotes: WASTE: F/P - Sink; E - Municipal Trash Bin Pyridostigmine 60 mg, 1 tab, No Longer [place] Route: PO, Active 2018 Medical Drug form: [place] TAB, Q8H, Dosing Weight 91.378, kg, Start date: 09/11/18 16:00:00 CDT, Duration: 30 day, Stop date: 10/11/18 8:00:00 CDTNotes: (Same as: Mestinon) Bacitracin 1 appl, Route: No Longer [place] RIGHT EYE, Active 2018 Medical Q4H, Drug Center form: OINT, Start date: 09/11/18 12:00:00 CDT, Duration: 30 day, Stop date: 10/11/18 8:00:00 CDT Labetalol 20 mg, 4 mL, No Longer [place] Route: IV, Active 2018 Medical Drug form: [place] INJ, Q10Min, Dosing Weight 91.378, kg, PRN Hypertension, Start date: 09/11/18 10:49:00 CDT, Duration: 30 day, Stop date: 10/11/18 10:48:00 CDT Hydralazine 10 mg, 0.5 mL, No Longer [place] Route: IV, Active 2018 Medical Drug form: [place] INJ, Q4H, Dosing Weight 91.378, kg, PRN Hypertension, Start date: 09/11/18 10:49:00 CDT, Duration: 30 day, Stop date: 10/11/18 10:48:00 CDTNotes: (Same as: Apresoline) metoprolol 50 mg, 1 tab, No Longer [place] extended release Route: PO, Active 2018 Medical Drug form: [place] ERTAB, Daily, Start date: 09/11/18 9:00:00 CDT, Duration: 30 day, Stop date: 10/10/18 9:00:00 CDTNotes: (Same as: Toprol XL) May split tab, but do not crush. Ramipril 10 mg, 2 cap, No Longer [place] Route: PO, Active 2019 Medical Drug form: Center CAP, Daily, Dosing Weight 91.378, kg, Start date: 09/11/18 9:00:00 CDT, Duration: 30 day, Stop date: 10/10/18 9:00:00 CDTNotes: (Same as:Altace) fondaparinux 2.5 mg, 0.5 No Longer [place] mL, Route: Active 2019 Medical SUB-Q, Drug Center form: SOLN, Daily, Dosing Weight 91.378, kg, Start date: 09/11/18 9:00:00 CDT, Duration: 30 day, Stop date: 10/10/18 9:00:00 CDTNotes: (Same as: Arixtra) Amlodipine 10 mg, 1 tab, No Longer [place] Route: PO, Active 2018 Medical Drug form: Center TAB, Daily, Dosing Weight 91.378, kg, Start date: 09/11/18 9:00:00 CDT, Duration: 30 day, Stop date: 10/10/18 9:00:00 CDTNotes: (Same as: Norvasc) Hydrochlorothiazid 25 mg, 1 tab, Inactive [place] e Route: PO, 2019 Medical Drug form: Center TAB, Daily, Dosing Weight 91.378, kg, Start date: 09/11/18 9:00:00 CDT, Duration: 30 day, Stop date: 10/10/18 9:00:00 CDTNotes: (Same as: Hydrodiuril) With food. Docusate Sodium 50 1 tab, Route: No Longer [place] MG / sennosides, GT, Drug Form: Active 2019 Medical MCFP 8.6 MG Oral TAB, Dosing Center Tablet Weight 91.378, kg, Daily, Start date: 09/11/18 9:00:00 CDT, Duration: 30 day, Stop date: 10/10/18 9:00:00 CDTNotes: (Same as Senokot-S) Equiv. to Cassidy-Colace. Furosemide 20 MG 20 mg, 1 tab, No Longer [place] Oral Tablet Route: PO, Active 2019 Medical Drug form: Center TAB, Every Other Day, Dosing Weight 91.378, kg, Start date: 09/11/18 9:00:00 CDT, Duration: 30 day, Stop date: 10/09/18 9:00:00 CDTNotes: (Same as: Lasix) May cause GI upset. Give with food or milk. Gamunex-C 25 gm + Route: IVPB, No Longer [facility] empty container 1 Drug form: Active 2019 Medical bag SOLN, Q24H, Center Start date: 09/10/18 21:00:00 CDT, Duration: 5 doses or times, Stop date: 09/14/18 21:00:00 CDT, Indication: Myasthenia gravisNotes: For adults: use IBW of XX used for XX mg/kg per protocol WASTE: F/P - Red; E -Red Lot # ____Mfg: (Gamunex - C) "blood product derivative" rosuvastatin 20 mg, 2 tab, Inactive [facility] Route: PO, 2019 Medical Drug form: Center TAB, Bedtime, Dosing Weight 91.378, kg, Start date: 09/10/18 21:00:00 CDT, Duration: 30 day, Stop date: 10/09/18 21:00:00 CDTNotes: (Same As: Crestor) heparin sodium, 5,000 unit, 1 Inactive [facility] porcine 2500 mL, Route: 2019 Medical UNT/ML Injectable SUB-Q, Drug Center Solution form: INJ, Q12H, Dosing Weight 91.378, kg, Start date: 09/10/18 21:00:00 CDT, Duration: 30 day, Stop date: 10/10/18 9:00:00 CDTNotes: porcine heparin Lacri-Lube 1 appl, Route: No Longer [facility] BOTH EYES, Active 2018 Medical BID, Drug Center form: OINT, Start date: 09/10/18 17:00:00 CDT, Duration: 30 day, Stop date: 10/10/18 9:00:00 CDTNotes: (Same as: Lacri-Lube, Puralube, Duratears Naturale, Artificial Tears, and Tears Again ) Pyridostigmine 60 mg, 1 tab, No Longer [place] Route: PO, Active 2018 Medical Drug form: Center TAB, BID, Dosing Weight 91.378, kg, Start date: 09/10/18 17:00:00 CDT, Duration: 30 day, Stop date: 10/10/18 9:00:00 CDTNotes: (Same as: Mestinon) Saline Flush 0.9% 5 mL, Route: No Longer [place] IV, Drug Form: Active 2019 Medical INJ, Dosing Center Weight 91.378, kg, PRN, PRN Line Flush, Start date: 09/10/18 16:47:00 CDT, Duration: 30 day, Stop date: 10/10/18 16:46:00 CDTNotes: (Same as: BD Posiflush) Benadryl 25 mg, 1 cap, No Longer [facility] Route: PO, Active 2018 Medical Drug form: [place] CAP, Daily, Dosing Weight 91.378, kg, PRN Other -See Comment, Start date: 09/10/18 16:47:00 CDT, Duration: 5 day, Stop date: 09/15/18 16:46:00 CDTNotes: (Same as: Benadryl) Solu-Medrol 40 mg, 1 mL, No Longer [facility] Route: IVP, Active 2018 Medical Drug form: Center INJ, Daily, Dosing Weight 91.378, kg, PRN Other -See Comment, Start date: 09/10/18 16:47:00 CDT, Duration: 5 day, Stop date: 09/15/18 16:46:00 CDTNotes: (Same as:Solu-MEDROL , A-Methapred) Zofran 4 mg, 2 mL, No Longer [facility] Route: IVP, Active 2018 Medical Drug form: Center INJ, Daily, Dosing Weight 91.378, kg, PRN Other -See Comment, Start date: 09/10/18 16:44:00 CDT, Duration: 5 day, Stop date: 09/15/18 16:43:00 CDTNotes: (Same as: Zofran) MEDICATION WASTE Product Size: 4 mg Product Wasted: ___ mg Immunoglobulin G 36 gm, Route: Inactive [place] IVPB, Drug 2018 Medical form: SOLN, Center Daily, Dosing Weight 91.378, kg, Start date: 09/10/18 16:42:00 CDT, Duration: 5 day, Stop date: 09/15/18 9:00:00 CDT, Indication: Other see comments Insulin regular 1 unit, 0.01 No Longer [place] mL, Route: Active 2019 Medical SUB-Q, Drug Center form: SOLN, TID-Before Meals, Dosing Weight 91.378, kg, PRN Blood Glucose Results, Start date: 09/10/18 8:17:00 CDT, Duration: 30 day, Stop date: 10/10/18 8:16:00 CDTNotes: (Same as: Humulin R) Roll in palms of hands gently; Do not shake vigorously. "single patient use only" (Restricted to patients requiring a dose > 60 units) WASTE: F/P - Black; E - Splash Trash Bin Stable for 28 days at room temperature Expires in days from Date Glucagon 1 mg, Route: No Longer [facility] IM, Drug form: Active 2018 Medical PDR/INJ, PRN, Center Dosing Weight 91.378, kg, PRN Blood Glucose Results, Start date: 09/10/18 8:17:00 CDT, Duration: 30 day, Stop date: 10/10/18 8:16:00 CDT Dextrose 50% 12.5 gm, 25 No Longer [facility] Syringe mL, Route: Active 2019 Medical IVP, Drug Center Form: INJ, Dosing Weight 91.378, kg, PRN, PRN Blood Glucose Results, Start date: 09/10/18 8:17:00 CDT, Duration: 30 day, Stop date: 10/10/18 8:16:00 CDT Saline Flush 0.9% 10 ml, Route: No Longer [facility] IVP, Drug Active 2019 Medical Form: INJ, Center Dosing Weight 91.378, kg, PRN, PRN Line Flush, Start date: 09/10/18 0:20:00 CDT, Duration: 30 day, Stop date: 10/10/18 0:19:00 CDTNotes: (Same as: BD Posiflush) Dextrose 5% with 1,000 mL, No Longer [place] 0.9% NaCl IV 1,000 Rate: 75 Active 2019 Medical mL ml/hr, Infuse Center over: 13.3 hr, Route: IV, Dosing Weight 91.378 kg, Total Volume: 1,000, Start date: 09/10/18 0:20:00 CDT, Duration: 30 day, Stop date: 10/10/18 0:19:00 CDT, 1.99, m2 Streptococcus 0.5 mL, Route: No Longer [place] pneumoniae IM, Drug Form: Active 2018 Medical serotype 1 INJ, ONCALL, [place] capsular antigen Start date: diphtheria [id number] 09/10/18 protein conjugate 0:11:25 CDT, vaccine / Stop date: Streptococcus 10/10/18 pneumoniae 0:06:25 serotype 14 CDTNotes: capsular antigen Shake well diphtheria [id number] prior to use protein conjugate (Same as: vaccine / Prevnar 13) Streptococcus pneumoniae serotype 18C capsular antigen d insulin glargine 10 unit, 0.1 Inactive mL, Route: 2018 [facility] SUB-Q, Drug [place] form: SOLN, Bedtime, Start date: 09/09/18 22:00:00 CDT, Duration: 30 day, Stop date: 10/08/18 22:00:00 CDTNotes: (Same as: Lantus) Do not hold insulin without contacting prescriber WASTE: F/P - Black; E - Municipal Trash Bin "single patient use only" Insulin Glargine 10 unit, On Hold 100 UNT/ML SUB-Q, 2018 [facility] Injectable Bedtime, 0 [facility] Solution Refill(s) Bacitracin 0.5 1 appl, Route: Inactive UNT/MG Ophthalmic RIGHT EYE, 2018 [facility] Ointment TID, Drug City form: OINT, Start date: 09/09/18 9:00:00 CDT, Duration: 30 day, Stop date: 10/08/18 17:00:00 CDT D5W 1/2NS 1,000 mL 1,000 mL, Inactive Rate: 75 2019 [facility] ml/hr, Infuse City over: 13.3 hr, Route: IV, Dosing Weight 94.3 kg, Total Volume: 1,000, Start date: 09/09/18 7:53:00 CDT, Duration: 30 day, Stop date: 10/09/18 7:52:00 CDT, 2.02, m2 Acyclovir 250 mg, 5 mL, No Longer Route: IVPB, [address] [id number], [facility] Dosing Weight 94.3, kg, Start date: 09/08/18 20:00:00 CDT, Duration: 30 day, Stop date: 10/08/18 8:00:00 CDTNotes: MEDICATION WASTE Product Size: 500 mg Product Wasted: _0__ mg 0.5 ML dulaglutide SUB-Q, every On Hold 3 MG/ML Prefilled Thursday, 0 2018 [facility] Syringe Refill(s) [facility] [Trulicity] Insulin Glargine 20 unit, On Hold 100 UNT/ML SUB-Q, 2019 [facility] Injectable Bedtime, # 3 [facility] Solution mL, 3 Refill(s) heparin 5,000 unit, 1 No Longer mL, Route: Active 2019 [facility] SUB-Q, Drug [facility] form: INJ, Q8H, Dosing Weight 94.3, kg, Consider for obese patients, Start date: 09/08/18 16:00:00 CDT, Stop date: 10/08/18 8:00:00 CDTNotes: porcine heparin Dextrose 50% 12.5 gm, 25 No Longer Syringe mL, Route: Active 2019 [facility] IVP, Drug [facility] Form: INJ, Dosing Weight 94.3, kg, PRN, PRN Blood Glucose Results, Start date: 09/08/18 9:49:00 CDT, Duration: 30 day, Stop date: 10/08/18 9:48:00 CDT Glucagon 1 mg, Route: No Longer IM, Drug form: [address] PDR/INJ, PRN, [facility] Dosing Weight 94.3, kg, PRN Blood Glucose Results, Start date: 09/08/18 9:49:00 CDT, Duration: 30 day, Stop date: 10/08/18 9:48:00 CDT Furosemide 20 MG 20 mg, 1 tab, No Longer [facility] Oral Tablet Route: PO, Active 2019 Medical Drug form: Center TAB, Every Other Day, Dosing Weight 111.6, kg, Start date: 08/20/18 9:00:00 CDT, Duration: 30 day, Stop date: 09/17/18 9:00:00 CDTNotes: (Same as: Lasix) May cause GI upset. Give with food or milk. Furosemide 20 MG 40 mg, Route: Inactive [facility] Oral Tablet PO, Drug form: 2019 Medical TAB, Daily, Center Dosing Weight 111.6, kg, Start date: 08/19/18 21:00:00 CDT, Duration: 30 day, Stop date: 09/18/18 9:00:00 CDT clopidogrel 75 mg 75 mg=1 tab, Active [facility] oral tablet PO, Daily, # 2019 Medical 90 tab, 3 Center Refill(s), Pharmacy: [facility] [id number] rosuvastatin 10 mg 20 mg=2 tab, Active [facility] oral tablet PO, Bedtime, # 2019 Medical 180 tab, 3 Center Refill(s) ramipril 5 mg oral 10 mg=2 cap, Active [facility] capsule PO, Q24H, # 2019 Medical 180 cap, 3 Center Refill(s) Insulin Glargine 20 unit, Active [facility] 100 UNT/ML SUB-Q, QPM, # 2019 Medical Injectable 15 mL, 3 Center Solution Refill(s) Furosemide 20 MG 20 mg=1 tab, Active [facility] Oral Tablet PO, Every 2019 Medical Other Day, # Center 15 tab, 0 Refill(s) amLODIPine 5 mg 5 mg=1 tab, Active [facility] oral tablet PO, Daily, # 2019 Medical 90 tab, 3 Center Refill(s) metoprolol 25 mg=1 tab, Active [facility] tartrate 25 mg PO, BID, # 60 2019 Medical oral tablet tab, 0 Center Refill(s) Furosemide 20 MG 40 mg, 1 tab, Inactive [facility] Oral Tablet Route: PO, 2019 Medical Drug form: Center TAB, ONCE, Dosing Weight 111.6, kg, Start date: 08/19/18 10:14:00 CDT, Stop date: 08/19/18 10:14:00 CDTNotes: (Same as: Lasix) May cause GI upset. Give with food or milk. Ramipril 10 mg, 2 cap, Inactive [place] Route: PO, 2019 Medical Drug form: Center CAP, Q24H, Dosing Weight 111.6, kg, Start date: 08/19/18 10:00:00 CDT, Duration: 30 day, Stop date: 09/17/18 10:00:00 CDTNotes: (Same as:Altace) Hydralazine 10 mg, Route: Inactive Dougie IV, ONCE, 2018 Medical Dosing Weight Center 111.6, kg, Start date: 08/19/18 9:10:00 CDT, Stop date: 08/19/18 9:10:00 CDT Amlodipine 10 mg, 1 tab, Inactive Doug[place] Route: PO, 2018 Medical Drug form: Center TAB, Q24H, Dosing Weight 111.6, kg, Start date: 08/19/18 9:00:00 CDT, Duration: 30 day, Stop date: 09/17/18 9:00:00 CDTNotes: (Same as: Norvasc) Fentanyl 50 microgram, Inactive Doug[place] Route: IV, 2019 Medical ONCE, Dosing Center Weight 111.6, kg, Start date: 08/19/18 8:49:00 CDT, Stop date: 08/19/18 8:49:00 CDT Omnipaque 350 150 ml, Route: Inactive [place] INTRAARTERIAL, 2019 Medical Dosing Weight Center 111.6, kg, ONCE, Start date: 08/19/18 8:49:00 CDT, Stop date: 08/19/18 8:49:00 CDT heparin 3,000 unit, Inactive [place] Route: IV, 2019 Medical ONCE, Dosing Center Weight 111.6, kg, Start date: 08/19/18 8:49:00 CDT, Stop date: 08/19/18 8:49:00 CDT Midazolam 1 mg, Route: Inactive [place] IV, ONCE, 2019 Medical Dosing Weight Center 111.6, kg, Start date: 08/19/18 8:49:00 CDT, Stop date: 08/19/18 8:49:00 CDT iodixanol 100 mL, Route: Inactive Dougie IVP, Drug 2018 Medical Form: [facility] Dosing Weight 111.6, kg, ONCALL, STAT, Start date: 08/18/18 13:07:00 CDT, Duration: 1 doses or times, Dose=2.2ml/kg, Max [id number] -- "To be infused by Radiology Staff ONLY" Imodium A-D 1 mg, 5 mL, No Longer [place] Route: PO, Active 2018 Medical Drug form: [place] LIQ, Q6H, Dosing Weight 111.6, kg, PRN Diarrhea, Start date: 08/18/18 12:08:00 CDT, Duration: 30 day, Stop date: 09/17/18 12:07:00 CDTNotes: Same as Imodium Ativan 1 mg, 0.5 mL, No Longer [place] Route: IV, Active 2018 Medical Drug form: [place] INJ, ONCE, Dosing Weight 111.6, kg, PRN Other -See Comment, Start date: 08/18/18 9:40:00 CDT, MRINotes: (Same as: Ativan) Ramipril 10 mg, 2 cap, No Longer [place] Route: PO, Active 2018 Medical Drug form: [place] CAP, Daily, Dosing Weight 111.6, kg, Start date: 08/18/18 9:00:00 CDT, Duration: 30 day, Stop date: 09/16/18 9:00:00 CDTNotes: (Same as:Altace) Amlodipine 10 mg, 1 tab, No Longer [place] Route: PO, Active 2018 Medical Drug form: [place] TAB, Daily, Dosing Weight 111.6, kg, Start date: 08/18/18 9:00:00 CDT, Duration: 30 day, Stop date: 09/16/18 9:00:00 CDTNotes: (Same as: Norvasc) heparin 5,000 unit, 1 No Longer [place] mL, Route: Active 2019 Medical SUB-Q, Drug Center form: INJ, Q8H, Dosing Weight 111.6, kg, Start date: 08/18/18 0:00:00 CDT, Duration: 30 day, Stop date: 09/16/18 16:00:00 CDTNotes: porcine heparin atorvastatin 40 mg, Route: Inactive [place] PO, Drug form: 2019 Medical TAB, Bedtime, Center Dosing Weight 111.6, kg, Start date: 08/17/18 21:00:00 CDT, Duration: 30 day, Stop date: 09/15/18 21:00:00 CDT Crestor 20 mg, 2 tab, No Longer [place] Route: PO, Active 2019 Medical Drug form: Center TAB, Bedtime, Dosing Weight 111.6, kg, Start date: 08/17/18 21:00:00 CDT, Duration: 30 day, Stop date: 09/15/18 21:00:00 CDTNotes: (Same As: Crestor) insulin glargine 20 unit, 0.2 No Longer [place] mL, Route: Active 2018 Medical SUB-Q, Drug Center form: MORAIMA, QPM, Start date: 08/17/18 17:00:00 CDT, Duration: 30 day, Stop date: 09/15/18 17:00:00 CDTNotes: Same as: Lantus) Do not hold insulin without contacting prescriber WASTE: F/P - Black; E - [facility] Ramipril 5 mg, 1 cap, No Longer [place] Route: PO, Active 2018 Medical Drug form: [place] CAP, Daily, Dosing Weight 111.6, kg, Start date: 08/17/18 15:30:00 CDT, Duration: 30 day, Stop date: 09/16/18 9:00:00 CDTNotes: (Same as:Altace) Amlodipine 5 mg, 1 tab, No Longer [place] Route: PO, Active 2018 Medical Drug form: [place] TAB, Daily, Dosing Weight 111.6, kg, Start date: 08/17/18 15:30:00 CDT, Duration: 30 day, Stop date: 09/16/18 9:00:00 CDTNotes: (Same as: Norvasc) loperamide 2 mg, 10 mL, Inactive [facility] Route: PO, 2019 Medical Drug form: [place] LIQ, ONCE, PRN Loose Stools, Start date: 08/17/18 14:48:00 CDTNotes: Same as Imodium Imodium A-D EZ 2 mg, Route: Inactive Dougie Chews CHEW, Dosing 2018 Medical Weight 111.6, Center kg, BID, PRN as needed for loose stool, Start date: 08/17/18 13:34:00 CDT, Duration: 30 day, Stop date: 09/16/18 13:33:00 CDT Plavix 75 mg, 1 tab, No Longer [place] Route: PO, Active 2018 Medical Drug form: Center TAB, Daily, Dosing Weight 111.6, kg, Start date: 08/17/18 12:24:00 CDT, Duration: 30 day, Stop date: 09/16/18 9:00:00 CDTNotes: (Same As: Plavix) benzonatate 200 mg, 2 cap, No Longer [place] Route: PO, Active 2018 Medical Drug form: [place] CAP, TID, Dosing Weight 111.6, kg, PRN Cough, Start date: 08/17/18 12:18:00 CDT, Duration: 30 day, Stop date: 09/16/18 12:17:00 CDTNotes: (Same As: Drake Hidalgo) "Do Not Crush" Insulin regular 10 unit, 0.1 No Longer Dougie mL, Route: Active 2018 Medical SUB-Q, Drug Center form: SOLN, TID-Before Meals, Dosing Weight 111.6, [...] at room temperature Expires in days from Date 3 ML Insulin 40 unit, No Longer [place] Glargine 100 SUB-Q, Active 2019 Medical UNT/ML Prefilled Bedtime, # 3 Center Syringe [Lantus] mL, 3 Refill(s) Insulin regular 3 unit, 0.03 Inactive [place] mL, Route: 2019 [facility] SUB-Q, Drug Center form: SOLN, TID-Before Meals, Dosing Weight 113.636, [...] at room temperature Expires in days from Date Dextrose 50% in 12.5 gm, 25 No Longer [place] Water (bolus) IV mL, Route: Active 2018 Medical IVP, Drug Center Form: INJ, Dosing Weight 113.636, kg, PRN, PRN Blood Glucose Results, Start date: 08/17/18 2:18:00 CDT, Duration: 30 day, Stop date: 09/16/18 2:17:00 CDT Glucagon 1 mg, Route: No Longer Dougie IM, Drug form: Active 2019 Medical PDR/INJ, PRN, Center Dosing Weight 113.636, kg, PRN Blood Glucose Results, Start date: 08/17/18 2:18:00 CDT, Duration: 30 day, Stop date: 09/16/18 2:17:00 CDT Bisacodyl 10 mg, 1 supp, No Longer [facility] Route: AZ, Active 2018 Medical Drug form: [place] SUPP, Daily, Dosing Weight 113.636, kg, PRN Constipation, Start date: 08/17/18 1:06:00 CDT, Duration: 30 day, Stop date: 09/16/18 1:05:00 CDTNotes: (Same As: Dulcolax, Bisco-Lax) Labetalol 20 mg, 4 mL, No Longer [facility] Route: IVP, Active 2019 Medical Drug form: [place] INJ, Q10Min, Dosing Weight 113.636, kg, PRN Hypertension, Start date: 08/16/18 23:38:00 CDT, Duration: 30 day, Stop date: 09/15/18 23:37:00 CDT iodixanol 60 mL, Route: Inactive [place] IVP, Drug 2019 Medical Form: [facility] Dosing Weight 113.636, kg, ONCALL, STAT, Start date: 08/16/18 20:39:00 CDT, Duration: 1 doses or times, Dose=2.2ml/kg, Max [id number] -- "To be infused by Radiology Staff ONLY" metoprolol 25 mg 25 mg, 1 tab, PO Active Kinza [place] oral tablet PO, BID, 60 2010 Medical tab, Center Substitution Allowed, TAB metoprolol 25 mg, 1 tab, PO No Longer Kinza [facility] Route: PO, Active 2010 Medical Drug form: [place] TAB, BID, Start date: 03/25/11 9:00:00, Duration: 30 day, Stop date: 04/23/11 17:00:00 hydrALAZINE 10 mg, 0.5 mL, IV No Longer Kinza [facility] Route: IV, Active 2010 Medical Drug form: [place] INJ, Q4H, PRN Elevated BP, Start date: 03/24/11 18:14:00, Duration: 30 day, Stop date: 04/23/11 18:13:00, Systolic Blood pressure greater than 160 mmHg magnesium sulfate 2 gm, 50 mL, IVPB No Longer Kinza [facility] Route: IVPB, Active 2010 Medical Drug form: [place] INJ, ONCE, Total dose=2 gm, Start date: 03/24/11 17:59:00, Duration: 1 doses or times, Stop date: 03/24/11 17:59:00 NS 1,000 mL 1,000 mL, IV No Longer Kinza [facility] Rate: 100 Active 2010 Medical ml/hr, Infuse [place] over: 10 hr, Route: IV, Total Volume: 1,000, Start date: 03/24/11 17:56:00, Duration: 30 day, Stop date: 04/23/11 17:55:00 Novolin N 10 unit, 0.1 SUB-Q No Longer Kinza [facility] mL, Route: Active 2010 Medical SUB-Q, Drug Center form: INJ, BID, Start date: 03/24/11 9:00:00, Duration: 30 day, Stop date: 04/22/11 17:00:00 [place] Thyroid 120 mg, 2 tab, PO No Longer Kinza [facility] Route: PO, Active 2010 Medical Drug form: Center TAB, Before Breakfast, Start date: 03/24/11 8:30:00, Duration: 30 day, Stop date: 04/23/11 7:30:00 potassium chloride 40 mEq, 2 tab, PO No Longer Kinza [facility] Route: PO, Active 2010 Medical Drug form: Center ERTAB, ONCE, Start date: 03/23/11 19:12:00, Stop date: 03/23/11 19:12:00 senna 8.6 mg oral 8.6 mg, 1 tab, PO No Longer Kinza [facility] tablet Route: PO, Active 2010 Medical Drug Form: Center TAB, Daily, Start date: 03/23/11 9:00:00, Duration: 30 day, Stop date: 04/21/11 9:00:00 diphenhydrAMINE 25 mg, 1 cap, PO No Longer Kinza [facility] Route: PO, Active 2010 Medical Drug form: Center CAP, Q6H, PRN Itching, Start date: 03/23/11 7:37:00, Duration: 30 day, Stop date: 04/22/11 7:36:00 [place] Thyroid 120 mg, 0.5 PO No Longer Kinza [facility] tab, Route: Active 2010 Medical PO, Drug form: Center TAB, Before Breakfast, Start date: 03/23/11 7:30:00, Duration: 30 day, Stop date: 04/21/11 7:30:00 heparin 5,000 unit, 1 SUB-Q No Longer Kinza [facility] mL, Route: Active 2010 Medical SUB-Q, Drug Center form: INJ, Q12H, Start date: 03/22/11 21:00:00, Duration: 30 day, Stop date: 04/21/11 9:00:00 Crestor 20 mg, 2 tab, PO No Longer Kinza [facility] Route: PO, Active 2010 Medical Drug form: Center TAB, Bedtime, Start date: 03/22/11 21:00:00, Duration: 30 day, Stop date: 04/20/11 21:00:00 Keppra 500 mg oral 500 mg, 1 tab, PO No Longer Kinza [facility] tablet Route: PO, Active 2010 Medical Drug form: [place] TAB, Q12H, Start date: 03/22/11 21:00:00, Duration: 30 day, Stop date: 04/21/11 9:00:00 Coolin 5/325 oral 1 tab, Route: PO No Longer Kinza [facility] tablet PO, Drug Form: Active 2010 Medical TAB, Q4H, PRN Center Pain, Start date: 03/22/11 17:33:00, Duration: 30 day, Stop date: 04/21/11 17:32:00 1/2NS + KCL 500 mL, Rate: IV No Longer Gopathi Dougie 20mEq/L 1000ml 50 ml/hr, Active 2010 Medical (Premix) 500 mL Infuse over: [place] 10 hr, Route: IV, Total Volume: 500, Start date: 03/22/11 17:00:00, Duration: 30 day, Stop date: 04/21/11 16:59:00 magnesium oxide 400 mg, 1 tab, PO No Longer Kinza [facility] Route: PO, Active 2010 Medical Drug form: [place] TAB, BID, Start date: 03/22/11 17:00:00, Duration: 30 day, Stop date: 04/21/11 9:00:00 metoprolol 12.5 mg, 1 ea, PO No Longer Kinza [facility] Route: PO, Active 2010 Medical Drug form: [place] TAB, BID, Start date: 03/22/11 17:00:00, Duration: 30 day, Stop date: 04/21/11 9:00:00 docusate sodium 100 mg, 1 cap, PO No Longer Kinza [place] 100 mg oral Route: PO, Active 2010 Medical capsule Drug form: [place] CAP, BID, Start date: 03/22/11 17:00:00, Duration: 30 day, Stop date: 04/21/11 9:00:00 1/2NS 1,000 mL 1,000 mL, IV No Longer Kinza [facility] Rate: 50 Active 2010 Medical ml/hr, Infuse Center over: 20 hr, Route: IV, Total Volume: 1,000, Start date: 03/22/11 16:57:00, Duration: 30 day, Stop date: 04/21/11 16:56:00 insulin aspart 3 unit, 0.03 SUB-Q No Longer Kinza [facility] mL, Route: Active 2010 Medical SUB-Q, Drug Center form: SOLN, TID-Before Meals, PRN Blood Glucose Results, Start date: 03/22/11 16:28:00, Duration: 30 day, Stop date: 04/21/11 16:27:00 Dextrose 50% 25 gm, 50 mL, IVP No Longer Kinza [facility] Syringe Route: IVP, Active 2010 Medical Drug Form: Center INJ, PRN, PRN Blood Glucose Results, Start date: 03/22/11 16:28:00, Duration: 30 day, Stop date: 04/21/11 15:27:00 glucagon 1 mg, Route: IM No Longer Kinza [facility] IM, Drug form: Active 2010 Medical PDR/INJ, PRN, [place] PRN Blood Glucose Results, Priority: STAT, Start date: 03/22/11 16:28:00, Duration: 30 day, Stop date: 04/21/11 15:27:00 calcium carbonate 500 mg, 1 tab, PO No Longer Kinza [facility] Route: PO, Active 2010 Medical Drug form: [place] CHEWTAB, TID, PRN as needed for indigestion, Start date: 03/22/11 16:19:00, Duration: 30 day, Stop date: 04/21/11 16:18:00 ondansetron 4 mg, 2 mL, IVP No Longer [facility] Route: IVP, Active 2010 Medical Drug form: [place] INJ, ONCE, Priority: STAT, Start date: 03/22/11 10:12:00, Stop date: 03/22/11 10:12:00 morphine Sulfate 4 mg, 1 mL, IVP No Longer [facility] Route: IVP, Active 2010 Medical Drug form: [place] INJ, ONCE, Priority: STAT, Start date: 03/22/11 10:11:00, Stop date: 03/22/11 10:11:00 magnesium oxide 400 mg, 1 tab, PO Active [facility] [place] 400 mg oral tablet PO, BID, 4 2010 Medical tab, Center Substitution Allowed Benadryl 25 mg, 1 cap, PO No Longer Neymar [place] Route: PO, Active 2010 Medical Drug form: [place] CAP, Q4H, PRN Itching, Start date: 03/15/11 6:21:00, Duration: 30 day, Stop date: 04/14/11 6:20:00 trazodone 50 mg 50 mg, 1 tab, PO No Longer Korimilli [facility] oral tablet Route: PO, Active 2010 Medical Drug form: [place] TAB, Bedtime, Start date: 03/14/11 21:00:00, Duration: 30 day, Stop date: 04/12/11 21:00:00 NS 1,000 mL 1,000 mL, IV No Longer Alikhan [place] Rate: 75 Active 2010 Medical ml/hr, Infuse Center over: 13.3 hr, Route: IV, Total Volume: 1,000, Start date: 03/14/11 17:02:00, Duration: 30 day, Stop date: 04/13/11 17:01:00 senna 8.6 mg oral 8.6 mg, 1 tab, PO No Longer Korimilli [facility] tablet Route: PO, Active 2010 Medical Drug Form: Center TAB, Daily, Start date: 03/14/11 9:00:00, Duration: 30 day, Stop date: 04/12/11 9:00:00 metoprolol 12.5 mg, 1 ea, PO No Longer [place] [facility] Route: PO, Active 2010 Medical Drug form: [place] TAB, BID, Start date: 03/14/11 9:00:00, Duration: 30 day, Stop date: 04/12/11 17:00:00 Crestor 20 mg, 2 tab, PO No Longer [place] [facility] Route: PO, Active 2010 Medical Drug form: Center TAB, Daily, Start date: 03/14/11 9:00:00, Duration: 30 day, Stop date: 04/12/11 9:00:00 Keppra 500 mg oral 500 mg, 1 tab, PO No Longer [place] [facility] tablet Route: PO, Active 2010 Medical Drug form: [place] TAB, Q12H, Start date: 03/14/11 9:00:00, Duration: 30 day, Stop date: 04/12/11 21:00:00 Novolin N 10 unit, 0.1 SUB-Q No Longer [place] [facility] mL, Route: Active 2010 Medical SUB-Q, Drug Center form: INJ, BID, Start date: 03/14/11 9:00:00, Duration: 30 day, Stop date: 04/12/11 17:00:00 docusate sodium 100 mg, 1 cap, PO No Longer Ash [facility] 100 mg oral Route: PO, Active 2010 Medical capsule Drug form: [place] CAP, BID, Start date: 03/14/11 9:00:00, Duration: 30 day, Stop date: 04/12/11 17:00:00 calcium carbonate 500 mg, 1 tab, PO No Longer [place] [facility] Route: PO, Active 2010 Medical Drug form: [place] CHEWTAB, TID, Start date: 03/14/11 9:00:00, Duration: 30 day, Stop date: 04/12/11 17:00:00 heparin 5,000 unit, 1 SUB-Q No Longer [place] [facility] mL, Route: Active 2010 Medical SUB-Q, Drug Center form: INJ, Q8H, Start date: 03/14/11 8:00:00, Duration: 30 day, Stop date: 04/13/11 0:00:00 ciprofloxacin 750 mg, 3 tab, PO No Longer [place] [facility] Route: PO, Active 2010 Medical Drug form: [place] TAB, [id number], Start date: 03/14/11 7:00:00, Duration: 30 day, Stop date: 04/12/11 19:00:00 cefepime 2 gm, Route: IV No Longer [place] [facility] IV, Drug form: Active 2010 Medical INJ, [id number], Center Start date: 03/14/11 7:00:00, Duration: 30 day, Stop date: 04/12/11 23:00:00 [place] Thyroid 120 mg, 2 tab, PO No Longer Ash [facility] Route: PO, Active 2010 Medical Drug form: [place] TAB, [id number], Start date: 03/14/11 6:45:00, Duration: 30 day, Stop date: 04/13/11 6:30:00 glucagon 1 mg, Route: IM No Longer Ash [place] IM, Drug form: Active 2010 Medical PDR/INJ, PRN, Center PRN Blood Glucose Results, Priority: STAT, Start date: 03/14/11 6:06:00, Duration: 30 day, Stop date: 04/13/11 5:05:00 Dextrose 50% 25 gm, 50 mL, IVP No Longer Ash [facility] Syringe Route: IVP, Active 2010 Medical Drug Form: [place] INJ, PRN, PRN Blood Glucose Results, Start date: 03/14/11 6:06:00, Duration: 30 day, Stop date: 04/13/11 5:05:00 insulin aspart 4 unit, 0.04 SUB-Q No Longer [place] [facility] mL, Route: Active 2010 Medical SUB-Q, Drug Center form: SOLN, TID-Before Meals, PRN Blood Glucose Results, Start date: 03/14/11 6:06:00, Duration: 30 day, Stop date: 04/13/11 6:05:00 Coolin 5/325 oral 1 tab, Route: PO No Longer Ash [facility] tablet PO, Drug Form: Active 2010 Medical TAB, Q4H, PRN Center as needed for pain, Start date: 03/14/11 6:02:00, Duration: 30 day, Stop date: 04/13/11 6:01:00 magnesium sulfate 2 gm, 50 mL, IVPB No Longer [place] [facility] Route: IVPB, Active 2010 Medical Drug form: [place] INJ, ONCE, Total dose=2 gm, Start date: 03/14/11 6:01:00, Duration: 1 doses or times, Stop date: 03/14/11 6:01:00 Sodium Chloride 1,000 mL, IV No Longer [place] Dougie 0.9% (Bolus) IV Rate: 1,000 Active 2010 Medical 1,000 mL ml/hr, Infuse Center over: 1 hr, Route: IV, Total Volume: 1,000, Bolus Dose, Priority: STAT, Start date: 03/14/11 4:12:00, Duration: 1 doses or times, Stop date: 03/14/11 5:11:00 Maxipime 2 gm, Route: IVPB No Longer [place] [facility] IVPB, Drug Active 2010 Medical form: INJ, Center ONCE, Start date: 03/13/11 23:52:00, Stop date: 03/13/11 23:52:00 Cipro 750 mg, 3 tab, PO No Longer [place] [facility] Route: PO, Active 2010 Medical Drug form: Center TAB, ONCE, Start date: 03/13/11 23:51:00, Stop date: 03/13/11 23:51:00 Sodium Chloride 1,000 mL, IV No Longer [place] 0.9% (Bolus) IV Rate: 1,000 Active 2010 Medical 1,000 mL ml/hr, Infuse Center over: 1 hr, Route: IV, Total Volume: 1,000, Bolus Dose, Priority: STAT, Start date: 03/13/11 23:20:00, Duration: 1 doses or times, Stop date: 03/14/11 0:19:00 morphine Sulfate 4 mg, 1 mL, IVP No Longer [place] Route: IVP, Active 2010 Medical Drug form: Center INJ, ONCE, Priority: STAT, Start date: 03/13/11 22:47:00, Stop date: 03/13/11 22:47:00 Lasix Substitution No Longer [facility] Allowed Active 2010 Medical [place] metFORmin Substitution No Longer [facility] Allowed Active 2010 Medical Center metoprolol 12.5 mg, 1 ea, PO No Longer Aaron [place] Route: PO, Active 2010 Medical Drug form: Center TAB, BID, Start date: 03/06/11 20:00:00, Duration: 30 day, Stop date: 04/05/11 8:00:00 metoprolol 25 mg 12.5 mg, 0.5 PO Active Rizvi [place] oral tablet ea, PO, BID, 2010 Medical 60 tab, Center Substitution Allowed, TAB trazodone 50 mg 50 mg, 1 tab, PO Active R[facility]vi 03/06[facility] [place] oral tablet PO, Bedtime, 2010 Medical 40 tab, Center Substitution Allowed, TAB Coolin 5/325 oral 1 tab, PO, PO Active Rizvi 03/06[facility] [place] tablet Q4H, PRN, 40 2010 Medical tab, Pain, Center Substitution Allowed, Maintenance, TAB Novolin N 100 10 unit, SUB-Q Active Rizvi [facility] units/mL SUB-Q, BID, 10 2010 Medical subcutaneous ml, Center injection Substitution Allowed, SUSP [place] Thyroid 60 120 mg, 2 tab, PO Active Rizvi 03/06[facility] [place] mg oral tablet PO, Before 2010 Medical Breakfast, 60 Center tab, Substitution Allowed, TAB Keppra 500 mg oral 500 mg, 1 tab, PO Active Rizvi 03/06[facility] [place] tablet PO, Q12H, 60 2010 Medical tab, Center Substitution Allowed, TAB Crestor 20 mg oral 20 mg, 1 tab, PO Active Rizvi 03/06[facility] [place] tablet PO, Daily, 30 2010 Medical tab, Center Substitution Allowed, TAB senna 8.6 mg oral 8.6 mg, 1 tab, PO Active [facility] 03/[facility] Decisyon tablet PO, Daily, 30 2010 Medical tab, Center Substitution Allowed, Maintenance, TAB docusate sodium 100 mg, 1 cap, PO Active Rizvi [place] 100 mg oral PO, BID, 30 2010 Medical capsule cap, [place] Substitution Allowed, CAP ciprofloxacin 250 750 mg, 3 tab, PO Active Rizvi 03/06[facility] [place] mg oral tablet PO, Q12H, 40 2010 Medical doses or Center times, Substitution Allowed, TAB Maxipime 2 g 2 gm, IV, Q8H, IV Active Rizvi 03/06[facility] injection 60 doses or 2010 Medical times, Center Substitution Allowed calcium carbonate 500 mg, 1 tab, PO Active Rizvi 03/06[facility] [place] 500 mg oral PO, TID, PRN, 2010 Medical tablet, chewable 30 tab, as Center needed for indigestion, Substitution Allowed, CHEWTAB Lasix 10 mg, 0.5 PO No Longer Aaron [facility] tab, Route: Active 2010 Medical PO, Drug form: Center TAB, Daily, Start date: 03/06/11 8:00:00, Duration: 30 day, Stop date: 04/04/11 8:00:00 Norvasc 5 mg, Route: PO No Longer [place] PO, Daily, Active 2010 Medical Start date: Center 03/02/11 8:00:00, Duration: 30 day, Stop date: 03/31/11 8:00:00 trazodone 50 mg 50 mg, 1 tab, PO No Longer Zeider [facility] oral tablet Route: PO, Active 2010 Medical Drug form: Center TAB, Bedtime, Start date: 02/27/11 21:00:00, Duration: 30 day, Stop date: 03/28/11 21:00:00 calcium carbonate 500 mg, 1 tab, PO No Longer Zeider [facility] Route: PO, Active 2010 Medical Drug form: Center TAB, TID, Start date: 02/27/11 8:00:00, Duration: 7 day, Stop date: 03/05/11 17:00:00 senna 8.6 mg, 1 tab, PO No Longer Zeider [facility] Route: PO, Active 2010 Medical Drug Form: Center TAB, Daily, Start date: 02/27/11 8:00:00, Duration: 30 day, Stop date: 03/28/11 8:00:00 Lasix 40 mg oral 20 mg, 0.5 PO No Longer Rizvi [facility] tablet tab, Route: Active 2010 Medical PO, Drug form: Center TAB, Daily, Start date: 02/27/11 8:00:00, Stop date: 03/28/11 8:00:00 [place] Thyroid 120 mg, 2 tab, PO No Longer Zeider [facility] Route: PO, Active 2010 Medical Drug form: Center TAB, Before Breakfast, Start date: 02/27/11 6:30:00, Duration: 30 day, Stop date: 03/28/11 6:30:00 Insulin regular 5 unit, 0.05 SUB-Q No Longer [place] [facility] mL, Route: Active 2010 Medical SUB-Q, Drug Center form: SOLN, TID-Before Meals, Start date: 02/27/11 6:30:00, Stop date: 03/28/11 16:30:00 heparin 5000 5,000 unit, 1 SUB-Q No Longer Zeider [facility] units/mL mL, Route: Active 2010 Medical injectable SUB-Q, Drug Center solution form: INJ, Q8H, Start date: 02/27/11 0:00:00, Duration: 30 day, Stop date: 03/28/11 16:00:00 hydrALAZINE 25 mg 25 mg, 1 tab, PO No Longer [place] [facility] oral tablet Route: PO, Active 2010 Medical Drug form: Center TAB, Q8H, Start date: 02/27/11 0:00:00, Duration: 30 day, Stop date: 03/28/11 16:00:00 ciprofloxacin 750 mg, 3 tab, PO No Longer Zeider [facility] Route: PO, Active 2010 Medical Drug form: Center TAB, Q12H, Priority: Routine, Start date: 02/26/11 23:00:00, Duration: 30 day, Stop date: 03/28/11 11:00:00 Crestor 20 mg, 2 tab, PO No Longer Zeider [facility] Route: PO, Active 2010 Medical Drug form: Center TAB, Daily, Start date: 02/26/11 21:00:00, Duration: 30 day, Stop date: 03/27/11 21:00:00 levetiracetam 500 mg, 1 tab, PO No Longer Zeider [facility] Route: PO, Active 2010 Medical Drug form: Center TAB, Q12H, Start date: 02/26/11 21:00:00, Duration: 30 day, Stop date: 03/28/11 9:00:00 magnesium oxide 400 mg, 1 tab, PO No Longer Zeider [facility] Route: PO, Active 2010 Medical Drug form: Center TAB, BID, Start date: 02/26/11 20:00:00, Duration: 5 day, Stop date: 03/03/11 8:00:00 insulin 10 unit, 0.1 SUB-Q No Longer Zeider [facility] isophane-NPH mL, Route: Active 2010 Medical SUB-Q, Drug Center form: INJ, BID, Start date: 02/26/11 20:00:00, Duration: 30 day, Stop date: 03/28/11 8:00:00 docusate sodium 100 mg, 1 cap, PO No Longer Zeider [place] 100 mg oral Route: PO, Active 2010 Medical capsule Drug form: [place] CAP, BID, Start date: 02/26/11 20:00:00, Duration: 30 day, Stop date: 03/28/11 8:00:00 Prinivil 20 mg, 1 tab, PO No Longer Crowe [facility] Route: PO, Active 2010 Medical Drug form: [place] TAB, BID, Start date: 02/26/11 20:00:00, Stop date: 03/28/11 8:00:00 cefepime 2 gm, Route: IVPB No Longer Zeider [facility] IVPB, Drug Active 2010 Medical form: INJ, [place] [id number], Start date: 02/26/11 18:00:00, Duration: 30 day, Stop date: 03/28/11 10:00:00 ondansetron 4 mg, 2 mL, IVP No Longer Zeider [facility] Route: IVP, Active 2010 Medical Drug form: [place] INJ, ONCE, PRN Nausea & Vomiting, Start date: 02/26/11 17:39:00 Saline Flush 0.9% 5 ml, Route: IVP No Longer Zeider [facility] IVP, Drug Active 2010 [facility] Flush, Start date: 02/26/11 17:39:00, Duration: 30 day, Stop date: 03/28/11 17:38:00 calcium carbonate 500 mg, 1 tab, CHEW No Longer Zeider [facility] Route: CHEW, Active 2010 Medical Drug form: [place] CHEWTAB, TID, PRN Indigestion, Start date: 02/26/11 17:39:00, Duration: 30 day, Stop date: 03/28/11 17:38:00 Coolin 5/325 oral 1 tab, Route: PO No Longer Zeider [facility] tablet PO, Drug Form: Active 2010 Medical TAB, Q4H, PRN Center Pain, Start date: 02/26/11 17:39:00, Duration: 30 day, Stop date: 03/28/11 17:38:00 acetaminophen 650 mg, 20.3 PO No Longer Zeider [facility] mL, Route: PO, Active 2010 Medical Drug form: [place] LIQ, Q4H, PRN Fever, Start date: 02/26/11 17:39:00, Duration: 30 day, Stop date: 03/28/11 17:38:00 Coolin 7.5/325 oral 1 tab, Route: PO No Longer Zeider [place] tablet PO, Drug Form: Active 2010 Medical TAB, Q4H, PRN Center Pain, Start date: 02/26/11 17:39:00, Duration: 30 day, Stop date: 03/28/11 17:38:00 Insulin regular 2 unit, 0.02 SUB-Q No Longer Zeider [place] mL, Route: Active 2010 Medical SUB-Q, Drug Center form: SOLN, TID-Before Meals, PRN Blood Glucose Results, Start date: 02/26/11 17:39:00, Duration: 30 day, Stop date: 03/28/11 17:38:00 [place] Thyroid 60 120 mg, 2 tab, PO Active [facility]on [place] mg oral tablet PO, Before 2010 Medical Breakfast, 30 Center tab, Substitution Allowed, TAB senna 8.6 mg oral 8.6 mg, 1 tab, PO Active [facility] [place] tablet PO, Daily, 30 2010 Medical tab, Center Substitution Allowed, Maintenance, TAB Crestor 10 mg oral 20 mg, 2 tab, PO Active [facility]on [place] tablet PO, Daily, 30 2010 Medical tab, Center Substitution Allowed, TAB Prinivil 10 mg 10 mg, 1 tab, PO Active [facility]on [place] oral tablet PO, BID, 30 2010 Medical tab, Center Substitution Allowed, TAB levetiracetam 500 500 mg, 1 tab, PO Active Christianson 02/26/ [place] mg oral tablet PO, Q12H, 30 2010 Medical tab, Center Substitution Allowed, TAB hydrALAZINE 25 mg 25 mg, 1 tab, PO Active Christianson [place] oral tablet PO, Q8H, 30 2010 Medical tab, Center Substitution Allowed, TAB heparin 5000 5000 units, SUB-Q Active Christianson [place] units/mL SUB-Q, Q8H, 30 2010 Medical injectable doses or Center solution times, Substitution Allowed, SOLN Lasix 40 mg oral 40 mg, 1 tab, PO Active [facility] [place] tablet PO, Daily, 30 2010 Medical tab, Center Substitution Allowed, TAB docusate sodium 100 mg, 1 cap, PO Active Bolton [place] 100 mg oral PO, BID, 2010 Medical capsule cap, Center Substitution Allowed, CAP ciprofloxacin 250 750 mg, 3 tab, PO Active [facility] [place] mg oral tablet PO, Q12H, 2010 Medical doses or Center times, Substitution Allowed, TAB Maxipime 2 g 2 gm, IV, Q8H, IV Active Bolton [facility] injection 1 doses or 2010 Medical times, Center Substitution Allowed calcium carbonate 500 mg, 1 tab, PO Active Bolton [place] 500 mg oral PO, TID, 2010 Medical tablet, chewable tab, Center Substitution Allowed, CHEWTAB [place] Enema 133 ml, Route: [place] No Longer Joel [facility] [place], Drug Form: Active 2010 Medical JEANNIE, ONCE, Center Start date: 02/24/11 14:38:00, Stop date: 02/24/11 14:38:00 bisacodyl 10 mg, 1 supp, [place] No Longer Joel [facility] Route: [place], Active 2010 Medical Drug form: [place] SUPP, ONCE, Start date: 02/24/11 14:38:00, Stop date: 02/24/11 14:38:00 magnesium citrate 300 ml, Route: PO No Longer Aicha [facility] PO, Drug Form: Active 2010 Medical LIQ, ONCE, Center Start date: 02/24/11 13:03:00, Stop date: 02/24/11 13:03:00 calcium carbonate 500 mg, 1 tab, PO No Longer Aaron [facility] Route: PO, Active 2010 Medical Drug form: Center TAB, TID, Start date: 02/24/11 13:00:00, Duration: 7 day, Stop date: 03/03/11 9:00:00 lisinopril 10 mg, 1 tab, PO No Longer Aaron [facility] Route: PO, Active 2010 Medical Drug form: [place] TAB, ONCE, Priority: NOW, Start date: 02/24/11 11:02:00, Stop date: 02/24/11 11:02:00 lisinopril 10 mg, Route: PO No Longer Aaron [place] PO, ONCE, Active 2010 Medical Start date: Center 02/24/11 11:01:00, Stop date: 02/24/11 11:01:00 Insulin regular 3 unit, 0.03 SUB-Q No Longer Aaron [place] mL, Route: Active 2010 Medical SUB-Q, Drug Center form: SOLN, TID-Before Meals, Start date: 02/23/11 16:30:00, Duration: 30 day, Stop date: 03/25/11 11:30:00 ciprofloxacin 750 mg, 3 tab, PO No Longer Aaron [place] Route: PO, Active 2010 Medical Drug form: [place] TAB, Q12H, Priority: Routine, Start date: 02/23/11 13:00:00, Duration: 30 day, Stop date: 03/25/11 11:00:00 insulin 10 unit, 0.1 SUB-Q No Longer Aaron [place] isophane-NPH mL, Route: Active 2010 Medical SUB-Q, Drug Center form: INJ, BID, Start date: 02/21/11 17:00:00, Stop date: 03/23/11 9:00:00 magnesium oxide 400 mg, 1 tab, PO No Longer Aaron [place] Route: PO, Active 2010 Medical Drug form: [place] TAB, BID, Start date: 02/21/11 17:00:00, Duration: 5 day, Stop date: 02/26/11 9:00:00 calcium carbonate 500 mg, 1 tab, CHEW No Longer Aaron [place] Route: CHEW, Active 2010 Medical Drug form: [place] CHEWTAB, TID, PRN Indigestion, Start date: 02/21/11 14:26:00, Duration: 30 day, Stop date: 03/23/11 14:25:00 cefepime 2 gm, Route: IVPB No Longer Christianson [place] IVPB, Drug Active 2010 Medical form: INJ, Center [id number], Start date: 02/20/11 18:00:00, Stop date: 03/22/11 10:00:00 Lasix 40 mg oral 40 mg, 1 tab, PO No Longer Aaron [place] tablet Route: PO, Active 2010 Medical Drug form: Center TAB, Daily, Start date: 02/20/11 17:00:00, Stop date: 03/22/11 9:00:00 heparin 5000 5,000 unit, 1 SUB-Q No Longer Marie [place] units/mL mL, Route: Active 2010 Medical injectable SUB-Q, Drug Center solution form: INJ, Q8H, Start date: 02/20/11 16:00:00, Duration: 30 day, Stop date: 03/22/11 8:00:00 Coolin 7.5/325 oral 1 tab, Route: PO No Longer Marie [facility] tablet PO, Drug Form: Active 2010 Medical TAB, Q4H, PRN Center Pain, Start date: 02/20/11 11:07:00, Duration: 30 day, Stop date: 03/22/11 11:06:00 Crestor 20 mg, 2 tab, PO No Longer Christopher [facility] Route: PO, Active 2010 Medical Drug form: Center TAB, Daily, Start date: 02/20/11 9:00:00, Duration: 30 day, Stop date: 03/21/11 9:00:00 senna 8.6 mg, 1 tab, PO No Longer Christopher [facility] Route: PO, Active 2010 Medical Drug Form: Center TAB, Daily, Start date: 02/20/11 9:00:00, Duration: 30 day, Stop date: 03/21/11 9:00:00 [place] Thyroid 120 mg, 2 tab, PO No Longer Christopher [facility] Route: PO, Active 2010 Medical Drug form: Center TAB, Before Breakfast, Start date: 02/20/11 7:30:00, Duration: 30 day, Stop date: 03/21/11 7:30:00 vancomycin 1 gm, Route: IVPB No Longer Christianson [place] IVPB, Drug Active 2010 Medical form: INJ, Center [id number], Priority: NOW, Start date: 02/20/11 6:44:00, Duration: 30 day, Stop date: 03/21/11 22:44:00 magnesium sulfate 2 gm, 50 mL, IVPB No Longer Day [place] Route: IVPB, Active 2010 Medical Drug form: Center INJ, Q2H, Start date: 02/20/11 5:00:00, Duration: 2 doses or times, Stop date: 02/20/11 7:00:00 potassium chloride 20 mEq, 100 IVPB No Longer Day [place] mL, Route: Active 2010 Medical IVPB, Q2H, Center Start date: 02/20/11 4:00:00, Duration: 2 doses or times, Stop date: 02/20/11 6:00:00 magnesium sulfate 4 gm, 100 mL, IVPB No Longer Day [place] Route: IVPB, Active 2010 Medical Drug form: Center INJ, ONCE, Start date: 02/20/11 4:00:00, Stop date: 02/20/11 4:00:00 labetalol 5 mg, 1 mL, IV No Longer Kasi [place] Route: IV, Active 2010 Medical Drug form: [place] INJ, Q10Min, PRN Hypertension, Start date: 02/20/11 1:56:00, Duration: 30 day, Stop date: 03/22/11 1:55:00 NS 500 mL 500 mL, Rate: IV No Longer Kasi [place] 1,000 ml/hr, Active 2010 Medical Infuse over: [place] 0.5 hr, Route: IV, Total Volume: 500, Start date: 02/19/11 22:07:00, Duration: 1 doses or times, Stop date: 02/19/11 22:36:00, Bolus DoseBolus Dose calcium chloride 1,000 mg, 10 IV No Longer [facility] Dougie mL, Route: IV, Active 2010 Medical Drug form: Center INJ, ONCE, Start date: 02/19/11 21:18:00, Stop date: 02/19/11 21:18:00 Tylenol 650 mg, 2 tab, PO No Longer Salzaar [place] Route: PO, Active 2010 Medical Drug form: Center TAB, Q4H, PRN Fever, Start date: 02/19/11 21:13:00, Duration: 30 day, Stop date: 03/21/11 21:12:00 levetiracetam 500 mg, 1 tab, PO No Longer White [place] Route: PO, Active 2010 Medical Drug form: Center TAB, Q12H, Start date: 02/19/11 21:00:00, Duration: 30 day, Stop date: 03/21/11 9:00:00 acetaminophen 650 mg, 20.3 PO No Longer Kasi [facility] mL, Route: PO, Active 2010 Medical Drug form: [place] LIQ, Q4H, PRN Fever, Start date: 02/19/11 20:04:00, Duration: 30 day, Stop date: 03/21/11 20:03:00 Prinivil 10 mg, 1 tab, PO No Longer Aaron [facility] Route: PO, Active 2010 Medical Drug form: Center TAB, BID, Start date: 02/19/11 17:00:00, Duration: 30 day, Stop date: 03/20/11 17:00:00 hydrALAZINE 25 mg 25 mg, 1 tab, PO No Longer Aaron [facility] oral tablet Route: PO, Active 2010 Medical Drug form: [place] TAB, Q8H, Start date: 02/19/11 17:00:00, Stop date: 03/21/11 8:00:00 docusate sodium 100 mg, 1 cap, PO No Longer [place] 100 mg oral Route: PO, Active 2010 Medical capsule Drug form: [place] CAP, BID, Start date: 02/19/11 17:00:00, Duration: 30 day, Stop date: 03/21/11 9:00:00 Coolin 5/325 oral 1 tab, Route: PO No Longer Christopher [facility] tablet PO, Drug Form: Active 2010 Medical TAB, Q4H, PRN Center Pain, Start date: 02/19/11 16:14:00, Duration: 30 day, Stop date: 03/21/11 16:13:00 ciprofloxacin 400 mg, 200 IVPB No Longer Sahu [facility] mL, Route: Active 2010 Medical IVPB, Drug Center form: INJ, [id number], Priority: NOW, Start date: 02/19/11 16:10:00, Duration: 30 day, Stop date: 03/21/11 4:10:00 vancomycin 2 gm, Route: IVPB No Longer Rizvi [place] IVPB, ONCE, Active 2010 Medical Priority: Center STAT, Start date: 02/19/11 16:02:00, Stop date: 02/19/11 16:02:00 Insulin regular 100 mL, Rate: IVPB No Longer [place] 100 unit + Sodium Start at 0.05 Active 2010 Medical Chloride 0.9% units/kg/hour- Center (titrate) 100 mL , Route: IVPB, Total Volume: 100, Duration: 30 day, Stop date: 03/21/11 15:56:00, Replace Every: 24 hr Sodium Chloride 1,000 mL, IV No Longer Christian [place] 0.9% IV 1,000 mL Rate: 75 Active 2010 Medical ml/hr, Infuse Center over: 13.3 hr, Route: IV, Total Volume: 1,000, Start date: 02/19/11 15:56:00, Stop date: 03/21/11 15:55:00 insulin regular 7 unit, 0.07 SUB-Q No Longer White [place] human recombinant mL, Route: Active 2010 [facility] 100 units/mL SUB-Q, Drug Center injectable form: SOLN, solution PRN, PRN Abnormal Lab Result, Start date: 02/19/11 15:51:00, Duration: 30 day, Stop date: 03/21/11 15:50:00 Dextrose 50% 6.25 gm, 12.5 IVP No Longer [place] Syringe mL, Route: Active 2010 [facility] IVP, Drug Center Form: INJ, PRN, PRN Abnormal Lab Result, Start date: 02/19/11 15:51:00, Duration: 30 day, Stop date: 03/21/11 15:50:00 Saline Flush 0.9% 5 ml, Route: IVP No Longer White [facility] IVP, Drug Active 2010 Medical Form: INJ, Center PRN, PRN Line Flush, Start date: 02/19/11 15:51:00, Duration: 30 day, Stop date: 03/21/11 15:50:00 morphine Sulfate 2 mg, 1 mL, IVP No Longer White [facility] Route: IVP, Active 2010 Medical Drug form: Center INJ, Q1H, PRN Pain Score 7-10, Start date: 02/19/11 15:51:00, Duration: 30 day, Stop date: 03/21/11 15:50:00 flumazenil 0.2 mg, 2 mL, IVP No Longer Trevor [facility] Route: IVP, Active 2010 Medical Drug form: Center INJ, PRN, PRN Other -See Comment, Initial dose, Start date: 02/19/11 14:18:00, Duration: 30 day, Stop date: 03/21/11 14:17:00 naloxone 0.04 mg, 0.1 IVP No Longer Herman [facility] mL, Route: Active 2010 Medical IVP, Drug Center form: INJ, Q2MIN, PRN Narcotic Reversal, Start date: 02/19/11 14:18:00, Duration: 8 doses or times, Stop date: 02/20/11 14:18:00 hydromorphone 0.3 mg, 0.15 IVP No Longer Salazar [facility] mL, Route: Active 2010 Medical IVP, Drug Center form: INJ, Q5Min, PRN Pain, Start date: 02/19/11 14:18:00, Duration: 5 doses or times, Stop date: Limited # of times ondansetron 4 mg, 2 mL, IVP No Longer Trevor [facility] Route: IVP, Active 2010 Medical Drug form: Center INJ, ONCE, PRN Nausea & Vomiting, Start date: 02/19/11 14:18:00 labetalol 5 mg, 1 mL, IVP No Longer Herman [facility] Route: IVP, Active 2010 Medical Drug form: Center INJ, Q5Min, PRN Elevated BP, Start date: 02/19/11 14:18:00, Duration: 5 doses or times, Stop date: 02/20/11 0:00:00 vancomycin 1 gm, Route: IVPB No Longer Rizvi [place] IVPB, Drug Active 2010 Medical form: INJ, Center [id number], Start date: 02/19/11 14:00:00, Duration: 30 day, Stop date: 03/21/11 2:00:00 ondansetron 2 4 mg, 2 mL, IVP Active Zescotty [facility] mg/mL injectable IVP, Q8H, PRN, 2010 Medical solution 30 mL, Nausea Center & Vomiting, Substitution Allowed, SOLN Milk of Magnesia 1.2 gm, 5 mL, PO Active Zeider [place] 24% oral PO, Daily, 2010 Medical concentrate PRN, 150 mL, Center Constipation, Substitution Allowed, Maintenance, CONC Prinivil 10 mg 10 mg, 1 tab, PO Active Zeider [place] oral tablet PO, QPM, 30 2010 Medical tab, Center Substitution Allowed, TAB Keppra 500 mg oral 500 mg, 1 tab, PO Active Zeider [place] tablet PO, Q12H, 60 2010 Medical tab, Center Substitution Allowed, TAB Humulin N Pen 100 10 unit, SUB-Q Active ider [facility] units/mL SUB-Q, BID, 3 2010 Medical subcutaneous ml, Center injection Substitution Allowed, SUSP Humulin N Pen 100 10 unit, SUB-Q Active [facility] units/mL SUB-Q, BID, 3 2010 Medical subcutaneous ml, Center injection Substitution Allowed, SUSP hydrALAZINE 25 mg 25 mg, 1 tab, PO Active ider [facility] oral tablet PO, BID, 60 2010 Medical tab, Center Substitution Allowed, TAB bisacodyl 10 mg 10 mg, 1 supp, [place] Active Zeider [facility] rectal suppository [place], Bedtime, 2010 Medical PRN, 30 supp, Center Constipation, Substitution Allowed, SUPP Cool[place] 5/325 oral 1 tab, PO, PO Active ider [facility] tablet Q4H, PRN, 30 2010 Medical tab, as needed Center for pain, Substitution Allowed, Maintenance, TAB [place] Thyroid 120 120 mg, 1 tab, PO Active Zeider [place] mg oral tablet PO, Daily, 30 2010 Medical tab, Center Substitution Allowed, TAB Crestor 20 mg oral 20 mg, 1 tab, PO Active Zeider [place] tablet PO, Daily, 30 2010 Medical tab, Center Substitution Allowed, TAB metFORmin 500 mg 500 mg, 1 tab, PO Active Zeider [facility] oral tablet PO, Q8H, 90 2010 Medical tab, Center Substitution Allowed, TAB normal saline 0.9% 1,000 mL, IV No Longer Christianson [facility] IV 1,000 mL Rate: 100 Active 2010 Medical ml/hr, Infuse Center over: 10 hr, Route: IV, Total Volume: 1,000, Start date: 02/18/11 11:29:00, Duration: 30 day, Stop date: 03/20/11 11:28:00 potassium 25 mEq, No Longer [place] bicarbonate 25 mEq Substitution Active 2010 Medical oral tablet, Allowed Center effervescent potassium chloride 40 mEq, 30 mL, PO No Longer Alikhan [facility] Route: PO, Active 2010 Medical Drug form: [place] LIQ, Daily, Start date: 02/12/11 11:00:00, Duration: 30 day, Stop date: 03/14/11 8:00:00 Kayexalate 15 gm, 60 mL, PO No Longer Dean [facility] Route: PO, Active 2010 Medical Drug form: [place] SUSP, ONCE, Start date: 02/11/11 21:17:00, Stop date: 02/11/11 21:17:00 Kayexalate 30 gm, 120 mL, PO No Longer [place] [facility] Route: PO, Active 2010 Medical Drug form: [place] SUSP, ONCE, Start date: 02/11/11 17:22:00, Stop date: 02/11/11 17:22:00 NS (Bolus) IV 1,000 mL, IV No Longer Joel [place] 1,000 mL Rate: 1,000 Active 2010 Medical ml/hr, Infuse [place] over: 1 hr, Route: IV, Total Volume: 1,000, Priority: STAT, Start date: 02/11/11 8:37:00, Duration: 1 doses or times, Stop date: 02/11/11 9:36:00, Bolus DoseBolus Dose dexamethasone 1 mg, 1 tab, PO No Longer Zeider [facility] Route: PO, Active 2010 Medical Drug form: [place] TAB, Daily, Start date: 02/11/11 8:00:00, Duration: 2 day, Stop date: 02/12/11 8:00:00 [place] Enema 133 ml, Route: [place] No Longer Joel [facility] [place], Drug Form: Active 2010 Medical JEANNIE, ONCE, Center Start date: 02/10/11 14:15:00, Stop date: 02/10/11 14:15:00 bisacodyl 10 mg, 1 supp, [place] No Longer Joel [facility] Route: [place], Active 2010 Medical Drug form: [place] SUPP, ONCE, Start date: 02/10/11 14:15:00, Stop date: 02/10/11 14:15:00 dexamethasone 1 mg, 1 tab, PO No Longer Zeider [facility] Route: PO, Active 2010 Medical Drug form: [place] TAB, BID, Start date: 02/09/11 8:00:00, Duration: 2 day, Stop date: 02/10/11 20:00:00 Xylocaine Jelly 2% 1 appl, Route: TOP No Longer Allam [place] topical gel with TOP, Q6H, Drug Active 2010 Medical applicator form: GEL PRN [place] Pain, Start date: 02/08/11 16:04:00, Duration: 30 day, Stop date: 03/10/11 16:03:00 dexamethasone 1 mg, 1 tab, PO No Longer [place] [facility] Route: PO, Active 2010 Medical Drug form: [place] TAB, TID, Start date: 02/07/11 8:00:00, Duration: 2 day, Stop date: 02/08/11 17:00:00 Prinivil 10 mg, 1 tab, PO No Longer Zeider [facility] Route: PO, Active 2010 Medical Drug form: [place] TAB, QPM, Start date: 02/06/11 17:00:00, Duration: 30 day, Stop date: 03/07/11 17:00:00 dexamethasone 2 mg, 1 tab, PO No Longer [place] [facility] Route: PO, Active 2010 Medical Drug form: [place] TAB, TID, Start date: 02/05/11 8:00:00, Duration: 2 day, Stop date: 02/06/11 17:00:00 lisinopril 10 mg, 1 tab, PO No Longer Zeider [facility] Route: PO, Active 2010 Medical Drug form: [place] TAB, QPM, Start date: 02/04/11 8:00:00, Duration: 30 day, Stop date: 03/05/11 17:00:00 insulin 8 unit, 0.08 SUB-Q No Longer Alikhan [facility] isophane-NPH mL, Route: Active 2010 Medical SUB-Q, Drug Center form: INJ, Before Breakfast, Start date: 02/04/11 6:30:00, Stop date: 03/05/11 6:30:00 insulin 8 unit, 0.08 SUB-Q No Longer Alikhan [facility] isophane-NPH mL, Route: Active 2010 Medical SUB-Q, Drug Center form: INJ, Bedtime, Start date: 02/03/11 21:00:00, Stop date: 03/04/11 21:00:00 potassium chloride 40 mEq, 2 tab, PO No Longer [place] 20 mEq oral Route: PO, Active 2010 Medical tablet, extended Drug form: Center release ERTAB, ONCE, Start date: 02/03/11 14:29:00, Stop date: 02/03/11 14:29:00 potassium chloride 40 mEq, 2 tab, PO No Longer Zeider [facility] 20 mEq oral Route: PO, Active 2010 Medical tablet, extended Drug form: Center release ERTAB, Daily, Start date: 02/03/11 9:00:00, Stop date: 03/05/11 8:00:00 dexamethasone 3 mg, 1.5 tab, PO No Longer [place] [facility] Route: PO, Active 2010 Medical Drug form: Center TAB, TID, Start date: 02/03/11 8:00:00, Duration: 2 day, Stop date: 02/04/11 17:00:00 insulin 15 unit, 0.15 SUB-Q No Longer Ash [facility] isophane-NPH mL, Route: Active 2010 Medical SUB-Q, Drug Center form: INJ, Q24H, Start date: 02/03/11 0:00:00, Duration: 30 day, Stop date: 03/04/11 0:00:00 Keppra 500 mg, 1 tab, PO No Longer [place] [facility] Route: PO, Active 2010 Medical Drug form: Center TAB, Q12H, Start date: 02/02/11 21:00:00, Duration: 30 day, Stop date: 03/04/11 9:00:00 hydrALAZINE 25 mg 25 mg, 1 tab, PO No Longer Ash [facility] oral tablet Route: PO, Active 2010 Medical Drug form: Center TAB, BID, Start date: 02/01/11 17:00:00, Stop date: 03/03/11 8:00:00 heparin 5,000 unit, 1 SUB-Q No Longer Rizvi [facility] mL, Route: Active 2010 Medical SUB-Q, Drug Center form: INJ, Q8H, Start date: 02/01/11 16:00:00, Duration: 30 day, Stop date: 03/03/11 8:00:00 Kayexalate 15 gm, 60 mL, PO No Longer Ash [facility] Route: PO, Active 2010 Medical Drug form: [place] SUSP, ONCE, Start date: 02/01/11 13:19:00, Stop date: 02/01/11 13:19:00 potassium chloride 20 mEq, 1 tab, PO No Longer [place] [facility] 20 mEq oral Route: PO, Active 2010 Medical tablet, extended Drug form: Center release ERTAB, Daily, Start date: 02/01/11 9:00:00, Duration: 30 day, Stop date: 03/02/11 9:00:00 Crestor 20 mg, 2 tab, PO No Longer Zeider [facility] Route: PO, Active 2010 Medical Drug form: Center TAB, Daily, Start date: 02/01/11 9:00:00, Duration: 30 day, Stop date: 03/02/11 9:00:00 Lasix 40 mg oral 80 mg, 2 tab, PO No Longer Dean [facility] tablet Route: PO, Active 2010 Medical Drug form: Center TAB, Daily, Start date: 02/01/11 9:00:00, Duration: 30 day, Stop date: 03/02/11 9:00:00 atenolol 50 mg 50 mg, 1 tab, PO No Longer [place] [facility] oral tablet Route: PO, Active 2010 Medical Drug form: Center TAB, Daily, Start date: 02/01/11 9:00:00, Duration: 30 day, Stop date: 03/02/11 9:00:00 [place] Thyroid 120 mg, 2 tab, PO No Longer Zeider [facility] Route: PO, Active 2010 Medical Drug form: Center TAB, Daily, Start date: 02/01/11 9:00:00, Duration: 30 day, Stop date: 03/02/11 9:00:00 dexamethasone 4 mg, 1 tab, PO No Longer Zeider [facility] Route: PO, Active 2010 Medical Drug form: Center TAB, Q8H, Start date: 02/01/11 0:00:00, Duration: 2 day, Stop date: 02/02/11 16:00:00 Humulin N 20 unit, 0.2 SUB-Q No Longer [place] [facility] mL, Route: Active 2010 Medical SUB-Q, Drug Center form: INJ, BID, Start date: 02/01/11 0:00:00, Stop date: 03/02/11 16:00:00 Keppra 100 mg/mL 500 mg, 5 mL, [place] No Longer Zeider [place] oral solution Route: [place], Active 2010 Medical Drug form: Center SOLN, Q12H, Start date: 01/31/11 21:00:00, Duration: 30 day, Stop date: 03/02/11 9:00:00 Insulin regular 1 unit, 0.01 SUB-Q No Longer Nur [facility] mL, Route: Active 2010 Medical SUB-Q, Drug Center form: SOLN, TID-Before Meals, PRN Blood Glucose Results, Start date: 01/31/11 17:22:00, Duration: 30 day, Stop date: 03/02/11 17:21:00 Milk of Magnesia 30 mL, Route: PO No Longer Nur [facility] PO, Drug Form: Active 2010 Medical SUSP, Daily, Center PRN Constipation, Start date: 01/31/11 17:22:00, Duration: 30 day, Stop date: 03/02/11 17:21:00 bisacodyl 10 mg, 1 supp, [place] No Longer Nur [facility] Route: [place], Active 2010 Medical Drug form: Center SUPP, Bedtime, PRN Constipation, Start date: 01/31/11 17:22:00, Duration: 30 day, Stop date: 03/02/11 17:21:00 ondansetron 4 mg, 2 mL, IVP No Longer Nur [facility] Route: IVP, Active 2010 Medical Drug form: Center INJ, Q8H, PRN Nausea & Vomiting, Start date: 01/31/11 17:22:00, Duration: 30 day, Stop date: 03/02/11 17:21:00 Saline Flush 0.9% 3 mL, Route: IVP No Longer Nur [facility] IVP, Drug Active 2010 Medical Form: INJ, Center Q8H, PRN Line Flush, Start date: 01/31/11 17:22:00, Duration: 30 day, Stop date: 03/02/11 17:21:00, Administer at least once every 8 hoursAdministe r at least once every 8 hours [place] Route: SUB-Q, SUB-Q No Longer Zeider [facility] Drug form: Active 2010 Medical INJ, BID, Center Start date: 01/31/11 17:00:00, Duration: 30 day, Stop date: 03/02/11 9:00:00 metFORmin 500 mg 500 mg, 1 tab, PO No Longer Zeider [facility] oral tablet Route: PO, Active 2010 Medical Drug form: Center TAB, Q8H, Start date: 01/31/11 16:00:00, Duration: 30 day, Stop date: 03/02/11 8:00:00 Coolin 5/325 oral 1 tab, Route: PO No Longer Zeider [facility] tablet PO, Drug Form: Active 2010 Medical TAB, Q4H, PRN Center as needed for pain, Start date: 01/31/11 14:56:00, Duration: 30 day, Stop date: 03/02/11 14:55:00 bisacodyl 10 mg, Route: [place] No Longer Zeider [facility] [place], Drug form: Active 2010 Medical SUPP, Daily, Center PRN as needed for constipation, Start date: 01/31/11 14:56:00, Duration: 30 day, Stop date: 03/02/11 14:55:00 Keppra 100 mg/mL 500 mg, 5 mL, [place] On Hold ider [facility] oral solution [place], Q12H, 60 2010 Medical mL, Center Substitution Allowed, SOLN docusate sodium 100 mg, 1 cap, PO On Hold Zeider [place] 100 mg oral PO, BID, 60 2010 Medical capsule cap, Center Substitution Allowed, CAP dexamethasone 4 mg 4 mg, 1 tab, PO On Hold Zeider [facility] oral tablet PO, Q6H-02, 60 2010 Medical tab, Center Substitution Allowed, TAB bisacodyl 10 mg 10 mg, 1 supp, [place] On Hold Zeider [facility] rectal suppository [place], Daily, 2010 Medical PRN, 60 supp, Center Constipation, Substitution Allowed, SUPP Cool[place] 5/325 oral 1 tab, PO, PO On Hold Zeider [facility] tablet Q4H, PRN, 60 2010 Medical tab, Headache, Center Substitution Allowed, Maintenance, TAB [place] 5/325 oral 1 tab, Route: PO No Longer Bonner [facility] tablet PO, Drug Form: Active 2010 Medical TAB, Q4H, PRN [place] Headache, Start date: 01/30/11 15:44:00, Duration: 30 day, Stop date: 03/01/11 15:43:00 dexamethasone 4 mg, 1 tab, PO No Longer Christianson [facility] Route: PO, Active 2010 Medical Drug form: [place] TAB, Q6H-02, Start date: 01/29/11 12:00:00, Stop date: 02/28/11 6:00:00 insulin 20 unit, 0.2 SUB-Q No Longer Omidvar [facility] isophane-NPH mL, Route: Active 2010 Medical SUB-Q, Drug Center form: INJ, Q8H, Start date: 01/29/11 8:00:00, Stop date: 02/28/11 0:00:00 Keppra 100 mg/mL 500 mg, 5 mL, JATIN No Longer Boss [facility] oral solution Route: JATIN, Active 2010 Medical Drug form: [place] SOLN, Q12H, Start date: 01/28/11 21:00:00, Duration: 30 day, Stop date: 02/27/11 9:00:00 ranitidine 15 150 mg, 10 mL, JATIN No Longer Boss [facility] mg/mL oral syrup Route: JATIN, Active 2010 Medical Drug form: [place] SYRP, Q12H, Start date: 01/28/11 21:00:00, Duration: 30 day, Stop date: 02/27/11 9:00:00 Dextrose 50% 6.25 gm, 12.5 IVP No Longer Shagagi [facility] Syringe mL, Route: Active 2010 Medical IVP, Drug Center Form: INJ, PRN, PRN Abnormal Lab Result, Start date: 01/28/11 17:39:00, Duration: 30 day, Stop date: 02/27/11 17:38:00 insulin regular 3 unit, 0.03 SUB-Q No Longer George [facility] human recombinant mL, Route: Active 2010 Medical 100 units/mL SUB-Q, Drug Center injectable form: SOLN, solution PRN, PRN Abnormal Lab Result, Start date: 01/28/11 17:39:00, Duration: 30 day, Stop date: 02/27/11 17:38:00 metFORmin 1000 mg 1,000 mg, 1 PO No Longer Ash [facility] oral tablet tab, Route: Active 2010 Medical PO, Drug form: Center TAB, BID, Start date: 01/28/11 17:00:00, Duration: 30 day, Stop date: 02/27/11 9:00:00 heparin 5,000 unit, 1 SUB-Q No Longer Bursaw [facility] mL, Route: Active 2010 Medical SUB-Q, Drug Center form: INJ, Q8H, Start date: 01/28/11 0:00:00, Duration: 30 day, Stop date: 02/26/11 16:00:00 sodium phosphate 18 mmol, 6 mL, IV Active Day [facility] Route: IV, 2010 Medical ONCE, Start Center date: 01/27/11 3:30:00, Stop date: 01/27/11 3:30:00 normal saline 0.9% 1,000 mL, IV No Longer George [facility] IV 1,000 mL Rate: 50 Active 2010 Medical ml/hr, Infuse Center over: 20 hr, Route: IV, Total Volume: 1,000, Start date: 01/26/11 17:48:00, Duration: 30 day, Stop date: 02/25/11 17:47:00 labetalol 200 mg, 1 tab, PO No Longer Bursaw [facility] Route: PO, Active 2010 Medical Drug form: Center TAB, Q8H, Start date: 01/26/11 16:00:00, Stop date: 02/25/11 8:00:00 dexamethasone 6 mg, 1 tab, PO No Longer Rizvi [facility] Route: PO, Active 2010 Medical Drug form: [place] TAB, Q4H, Start date: 01/26/11 16:00:00, Duration: 30 day, Stop date: 02/25/11 12:00:00 propofol 10 mg/ml 1,000 mg, 100 IV No Longer Christian Dougie (titrate) 1,000 mg mL, Rate: Active 2010 Medical Titrate as Center directed, Route: IV, Total Volume: 100 ml, Start date: 01/26/11 15:51:00, Duration: 30 day, Stop date: 02/25/11 15:50:00, Replace Every: 24 hr dexamethasone 10 mg, Route: IVP No Longer Voda Dougie IVP, Q6H, Active 2010 Medical Start date: [place] 01/26/11 12:00:00, Duration: 30 day, Stop date: 02/25/11 6:00:00 mannitol 75 gm, 375 mL, IVPB No Longer Christian 01/26[facility] Route: IVPB, Active 2010 Medical Drug form: [place] INJ, Q6H, Start date: 01/26/11 12:00:00, Duration: 30 day, Stop date: 02/25/11 6:00:00 mannitol 75 gm, 375 mL, IVPB No Longer Aisiku [facility] Route: IVPB, Active 2010 Medical Drug form: [place] INJ, ONCE, Start date: 01/26/11 10:00:00, Stop date: 01/26/11 10:00:00 potassium 36 mmol, 12 IVPB No Longer Christian 01/26[facility] phosphate mL, Route: Active 2010 Medical IVPB, On Adm, Center Start date: 01/26/11 3:29:00, Duration: 1 doses or times, Stop date: 01/26/11 8:00:00 mannitol 50 gm, Route: IVPB No Longer Byronda 01/25[facility] IVPB, ONCE, Active 2010 Medical Start date: [place] 01/25/11 17:50:00, Stop date: 01/25/11 17:50:00 heparin 5,000 unit, 1 SUB-Q No Longer Rizvi 01/25[facility] mL, Route: Active 2010 Medical SUB-Q, Drug Center form: INJ, Q8H, Start date: 01/25/11 16:00:00, Duration: 30 day, Stop date: 02/24/11 8:00:00 sodium phosphate 15 mmol, 5 mL, IV Active Christian Dougie Route: IV, 2010 Medical ONCE, Start Center date: 01/25/11 8:20:00, Stop date: 01/25/11 8:20:00 sodium phosphate 15 mmol, IVPB No Longer Christian Dougie Route: IVPB, Active 2010 Medical PRN, PRN Center Abnormal Lab Result, Start date: 01/25/11 6:44:00, Duration: 30 day, Stop date: 02/24/11 6:43:00 magnesium sulfate 4 gm, 100 mL, IVPB No Longer Christian Dougie Route: IVPB, Active 2010 Medical Drug form: [place] INJ, ONCE, Start date: 01/25/11 6:44:00, Duration: 1 doses or times, Stop date: 01/25/11 6:44:00, For Mg=1.5 - 1.7 mg/dLFor Mg=1.5 - 1.7 mg/dL hydrALAZINE 10 mg, 0.5 mL, IV No Longer Christian 01/25[facility] Route: IV, Active 2010 Medical Drug form: Center INJ, Q30Min, PRN Hypertension, Start date: 01/25/11 0:14:00, Duration: 30 day, Stop date: 02/24/11 0:13:00 dexamethasone 10 mg, 1 mL, IV No Longer Dmitri Dougie Route: IV, Active 2010 Medical Drug form: Center INJ, Q6H, Start date: 01/25/11 0:00:00, Stop date: 02/23/11 18:00:00 Insulin regular 99 mL, Rate: IV No Longer Avinash Dougie 100 unit + Sodium TITRATE, Active 2010 Medical Chloride 0.9% IV Route: IV, Center 99 mL Total Volume: 100, Start date: 01/24/11 23:59:00, Duration: 30 day, Stop date: 02/23/11 23:58:00 Dextrose 50% 12.5 gm, 25 IVP No Longer Christian 08/27[facility] Syringe mL, Route: Active 2010 Medical IVP, Drug Center Form: INJ, PRN, PRN Abnormal Lab Result, Start date: 01/24/11 23:41:00, Duration: 30 day, Stop date: 02/23/11 23:40:00 Insulin regular 100 mL, Rate: IVPB No Longer [place] 01/25[facility] 100 unit + Sodium Start at 0.05 Active 2010 Medical Chloride 0.9% units/kg/hour- Center (titrate) 100 mL , Route: IVPB, Total Volume: 100, Duration: 30 day, Stop date: 02/23/11 23:41:00, Replace Every: 24 hr labetalol 10 mg, 2 mL, IV No Longer [place] 01/25[facility] Route: IV, Active 2010 Medical Drug form: [place] INJ, Q15Min, PRN Hypertension, Start date: 01/24/11 22:36:00, Duration: 30 day, Stop date: 02/23/11 22:35:00 levetiracetam 500 mg, Route: IV No Longer [place] 01/25[facility] IV, Q12H, Active 2010 Medical Start date: [place] 01/24/11 21:00:00, Duration: 30 day, Stop date: 02/23/11 9:00:00 famotidine 20 mg, 2 mL, IV No Longer [place] 01/25[facility] Route: IV, Active 2010 Medical Drug form: [place] INJ, Q12H, Start date: 01/24/11 21:00:00, Stop date: 02/23/11 9:00:00 propofol 10 mg/ml 1,000 mg, 100 IV No Longer [place] 01/25[facility] (titrate) 1,000 mg mL, Rate: Active 2010 Medical Titrate as Center directed, Route: IV, Total Volume: 100 ml, Start date: 01/24/11 20:56:00, Duration: 30 day, Stop date: 02/23/11 20:55:00, Replace Every: 12 hr chlorhexidine 15 ml, Route: S&SPIT No Longer Ryan [facility] topical 0.12% S&SPIT, Q4H, Active 2010 Medical liquid Drug form: [place] LIQ, Start date: 01/24/11 20:00:00, Duration: 30 day, Stop date: 02/23/11 16:00:00 niCARdipine 40 mg 40 mg, 200 mL, IV No Longer George [place] in [place] 200 ml IV 40 Rate: Titrate, Active 2010 Medical mg Route: IV, Center Total Volume: 200 mL, Duration: 30 day, Stop date: 02/23/11 19:06:00, Replace Every: 24 hr vancomycin 1 gm, Route: IVPB No Longer Boss [facility] IVPB, Drug Active 2010 Medical form: INJ, Center [id number], Start date: 01/24/11 9:00:00, Duration: 30 day, Stop date: 02/22/11 21:00:00 famotidine 20 mg 20 mg, 1 tab, PO No Longer Christian [facility] oral tablet Route: PO, Active 2010 Medical Drug form: Center TAB, Q12H, Start date: 01/23/11 21:00:00, Duration: 30 day, Stop date: 02/22/11 9:00:00 potassium chloride 20 mEq, PO, PO On Hold [facility] 20 mEq oral Daily, 2010 Medical tablet, extended Substitution Center release Allowed, TAB Lasix 40 mg oral 80 mg, 2 tab, PO On Hold [facility] tablet PO, Daily, 2010 Medical tab, Center Substitution Allowed, TAB heparin 5000 5,000 unit, 1 SUB-Q No Longer [place] units/mL mL, Route: Active 2010 Medical injectable SUB-Q, Drug Center solution form: INJ, Q8H, Start date: 01/23/11 16:00:00, Duration: 30 day, Stop date: 02/22/11 8:00:00 [place] 250 mcg, SUB-Q On Hold [facility] SUB-Q, BID, 2010 Medical Substitution Center Allowed, INJ cephalexin 500 mg, PO, PO On Hold [facility] monohydrate 500 mg TID, 2010 Medical oral tablet Substitution Center Allowed, CAP Levaquin 500 mg 1 tab, PO, PO On Hold [facility] oral tablet Q24H, 10 tab, 2010 Medical Substitution Center Allowed, TAB metFORmin 500 mg 500 mg, PO, PO On Hold [facility] oral tablet TID, 2010 Medical Substitution Center Allowed, TAB Crestor 20 mg oral 1 tab, PO, PO On Hold [place] tablet Daily, 30 tab2010 Medical Substitution Center Allowed, TAB benzonatate 200 mg 1 cap, PO, PO On Hold [facility] oral capsule TID, 30 cap, 2010 Medical Substitution Center Allowed, CAP atenolol 50 mg 1 tab, PO, PO On Hold [facility] oral tablet Daily, 30 tab, 2010 Medical Substitution Center Allowed [place] Thyroid 120 1 tab, PO, PO On Hold Zeider [place] mg oral tablet Daily, 30 tab2010 Medical Substitution Center Allowed, TAB docusate 100 mg, 1 cap, PO No Longer Ryan [place] Route: PO, Active 2010 Medical Drug form: [place] CAP, BID, Start date: 01/23/11 9:00:00, Stop date: 02/21/11 17:00:00 Senna 8.6 mg oral 8.6 mg, 1 tab, PO No Longer Nur [facility] tablet Route: PO, Active 2010 Medical Drug Form: [place] TAB, Q12H, Start date: 01/23/11 9:00:00, Duration: 30 day, Stop date: 02/21/11 21:00:00 levetiracetam 500 mg, 1 tab, PO No Longer Christian [facility] Route: PO, Active 2010 Medical Drug form: [place] TAB, Q12H, Start date: 01/23/11 9:00:00, Duration: 30 day, Stop date: 02/21/11 21:00:00 calcium chloride 1,000 mg, 10 IVPB No Longer Day [facility] mL, Route: Active 2010 Medical IVPB, ONCE, Center Start date: 01/23/11 8:30:00, Stop date: 01/23/11 8:30:00 magnesium sulfate 2 gm, 50 mL, IVPB No Longer Day [facility] Route: IVPB, Active 2010 Medical Drug form: [place] INJ, Q2H, Start date: 01/23/11 8:20:00, Duration: 2 doses or times, Stop date: 01/23/11 10:00:00 dexamethasone 4 mg, 1 tab, PO No Longer Christian [facility] Route: PO, Active 2010 Medical Drug form: Center TAB, Q6H, Start date: 01/23/11 6:00:00, Duration: 30 day, Stop date: 02/22/11 0:00:00 acetaminophen 650 mg, 2 tab, PO No Longer Nur [facility] Route: PO, Active 2010 Medical Drug form: Center TAB, Q4H, PRN Pain/Fever, Start date: 01/23/11 5:22:00, Duration: 30 day, Stop date: 02/22/11 5:21:00 morphine Sulfate 2 mg, 1 mL, IVP No Longer Rizvi [facility] Route: IVP, Active 2010 Medical Drug form: Center INJ, Q4H, PRN Pain Score 4-6, Start date: 01/23/11 5:22:00, Duration: 30 day, Stop date: 02/22/11 5:21:00, Hold for respiratory rate of 8 or less NS + KCL 20mEq/L 1,000 mL, IV No Longer Christian Dougie 1000ml (Premix) Rate: 60 Active 2010 Medical 1,000 mL 1,000 mL ml/hr, Infuse Center over: 16.7 hr, Route: IV, Total Volume: 1,000, Start date: 01/23/11 5:21:00, Duration: 30 day, Stop date: 02/22/11 5:20:00 insulin regular 5 unit, 0.05 SUB-Q No Longer [place] [facility] human recombinant mL, Route: Active 2010 [facility] 100 units/mL SUB-Q, Drug Center injectable form: SOLN, solution PRN, PRN Abnormal Lab Result, Start date: 01/23/11 5:14:00, Duration: 30 day, Stop date: 02/22/11 5:13:00 Dextrose 50% 6.25 gm, 12.5 IVP No Longer Nur 01/23[facility] Syringe mL, Route: Active 2010 [facility] IVP, Drug Center Form: INJ, PRN, PRN Abnormal Lab Result, Start date: 01/23/11 5:14:00, Duration: 30 day, Stop date: 02/22/11 5:13:00 Saline Flush 0.9% 5 ml, Route: IVP No Longer Nur 01/23[facility] IVP, Drug Active 2010 Medical Form: INJ, Center PRN, PRN Line Flush, Start date: 01/23/11 5:14:00, Duration: 30 day, Stop date: 02/22/11 5:13:00 bisacodyl 10 mg, 1 supp, [place] No Longer [place] 01/23[facility] Route: [place], Active 2010 Medical Drug form: Center SUPP, Daily, PRN Constipation, Start date: 01/23/11 5:14:00, Duration: 30 day, Stop date: 02/22/11 5:13:00 acetaminophen 650 mg, 2 tab, PO No Longer Boom [facility] Dougie Route: PO, Active 2010 Medical Drug form: Center TAB, Q4H, PRN Pain/Fever, Start date: 01/23/11 5:14:00, Duration: 30 day, Stop date: 02/22/11 5:13:00 morphine Sulfate 2 mg, 1 mL, IVP No Longer Bo[place] 01/23[facility] Route: IVP, Active 2010 Medical Drug form: Center INJ, Q1H, PRN Pain Score 7-10, Start date: 01/23/11 5:14:00, Duration: 30 day, Stop date: 02/22/11 5:13:00 ondansetron 4 mg, 2 mL, IVP No Longer [place] 01/23[facility] Route: IVP, Active 2010 Medical Drug form: Center INJ, Q8H, PRN Nausea & Vomiting, Start date: 01/23/11 5:14:00, Duration: 30 day, Stop date: 02/22/11 5:13:00 Allergies, Adverse Reactions, Alerts Substance Category Reaction Severity Reaction Status Date Comments Source type Reported penicillins< Assertion rash Drug Active Data [facility] sup>1</sup> allergy 1 migrated Medical from [facility] on 01/22/15. Originally documented as PCN. erythromycin Assertion Drug Active Data [facility] <sup>2</sup> allergy 1 migrated Medical from [facility] on 01/22/15. Originally documented as ERYTHROMYC IN. aspirin<sup> Assertion severe Drug Active Data [facility] 3</sup> chest allergy 1 migrated Medical pain from [facility] on 01/22/15. Originally documented as ASPIRIN. Adhesive Assertion Allergy to Active Data [facility] Tape<sup>4</ substance 1 migrated Medical sup> from [facility] on 08/01/15. Originally documented as ADHESIVE TAPE. PHENobarbita Assertion Drug Active Data [facility] l<sup>5</sup allergy 1 migrated Medical > from [facility] on 01/22/15. Originally documented as PHENOBARBI COSTA. aspirin allergy to severe Allergy Active [facility] substance chest Medical pain Center erythromycin drug Allergy Active [facility] penicillins drug rash Allergy Active [facility] phenobarbita Assertion rash Drug Active [facility] Silk Tape propensity takes Adverse Active [facility] to adverse skin off Reaction Medical reactions Center to substance ciprofloxaci Assertion Drug Active [facility] n [facility] cefepime Assertion Drug Active [facility] Cortizone-10 Assertion Drug Active [facility] heparin Assertion Severe Drug Active [facility] Immunizations No Data Provided for This Section Results Order Name Results Value Reference Date Interpretation Comments Source Range CHEM PANEL eGFR 76 11/29 Result Comment: The Medical eGFR is Center calculated using the CKD-EPI formula. In most young, healthy individuals the eGFR will be >90 mL/min/1.73m2 . The eGFR declines with age. An eGFR of 60-89 may be normal in some populations, particularly the elderly, for whom the CKD-EPI formula has not been extensively validated. Use of the eGFR is not recommended in the following populations:< br/>
Teresa viduals with unstable creatinine concentration s, including patients and those with serious co-morbid conditions.<b r/>
Patie nts with extremes in muscle mass or diet.

The data above are obtained from the National Kidney Disease Education Program (NKDEP) which additionally recommends that when the eGFR is used in patients with extremes of body mass index for purposes of drug dosing, the eGFR should be multiplied by the estimated BMI. CHEM PANEL Creatinine 0.79 0.50 - 11/29 [facility] 1.40 [facility] CHEM PANEL Glucose Lvl 104 70 - 99 11/29 [facility] CHEM PANEL Potassium 4.2 3.5 - 5.1 11/29 [facility] CHEM PANEL BUN 19 7 - 22 11/29 [facility] CHEM PANEL Calcium Lvl 9.3 8.5 - 10.5 11/29 [facility] CHEM PANEL Sodium Lvl 140 135 - 145 11/29 [facility] CHEM PANEL CO2 30 24 - 32 11/29 [facility] CHEM PANEL Chloride Lvl 104 95 - 109 11/29 [facility] [address] [place] [address] CHEM PANEL AGAP 10.2 10.0 - 11/29 [place] 20.0 /2018 [facility] URINE AND UA WBC 0-2 /HPF None Seen 11/29 [facility] STOOL /HPF /2018 [facility] URINE AND UA Bacteria Few /HPF None Seen 11/29 [facility] STOOL /HPF /2018 [facility] URINE AND UA Sq Epi Moderate Few /LPF 11/29 [facility] /LPF /2018 [facility] URINE AND UA RBC None Seen 0 - 2 11/29 [facility] (11/29/18 10:09 AM) [facility] URINE AND UA Mucus Few /LPF None Seen 11/29 [facility] /LPF /2018 [facility] URINE AND UA CaOx Jagruti Moderate None Seen 11/29 [facility] STOOL /HPF /HPF /2018 [facility] URINE AND UA 0.2 0.1 - 1.0 11/29 [facility] Urobilinogen /2018 [facility] URINE AND UA Blood Negative Negative 11/29 [facility] (11/29/18 10:09 AM) /2018 [facility] URINE AND UA Nitrite Negative Negative 11/29 [facility] (11/29/18 10:09 AM) [facility] URINE AND UA Bili Small Negative 11/29 [facility] STOOL *ABN* /2018 [facility] (11/29/18 10:09 AM) [place] URINE AND UA Leuk Est Negative Negative 11/29 [facility] (11/29/18 10:09 AM) [facility] URINE AND UA Protein 100 mg/dL Negative 11/29 [facility] STOOL mg/dL /2018 [facility] URINE AND UA pH 5.5 5.0 - 8.0 11/29 [facility] /2018 [facility] URINE AND UA Ketones Negative Negative 11/29 [facility] *NA* /2018 [facility] (11/29/18 10:09 AM) [place] URINE AND UA Glucose Negative Negative 11/29 [facility] (11/29/18 10:09 AM) [facility] URINE AND UA Color Yellow Yellow 11/29 [facility] STOOL *NA* /2018 Medical (11/29/18 10:09 AM) [place] URINE AND UA Turbidity Slight Cloudy Clear 11/29 [facility] STOOL (11/29/18 10:09 AM) /2018 [facility] URINE AND UA Spec Grav >=1.030 <=1.030 11/29 [facility] STOOL *ABN* /2018 [facility] (11/29/18 10:09 AM) [place] HEMATOLOGY MPV 10.6 7.4 - 10.4 09/23 [facility] HEMATOLOGY MCV 91.5 80.0 - 09/23 [place] 98.0 [facility] HEMATOLOGY Hct 42.9 36.0 - 09/23 [place] 48.0 [facility] HEMATOLOGY MCH 31.0 27.0 - 09/23 [place] 31.0 [facility] HEMATOLOGY RDW 14.1 11.5 - 09/23 [place] 14.5 [facility] HEMATOLOGY MCHC 33.8 32.0 - 09/23 [place] 36.0 [facility] HEMATOLOGY Platelet 128 133 - 450 09/23 [facility] HEMATOLOGY Hgb 14.5 12.0 - 09/23 [place] 16.0 [facility] HEMATOLOGY WBC 10.8 3.7 - 10.4 09/23 [facility] HEMATOLOGY RBC 4.69 4.20 - 09/23 [place] 5.40 /2018 [facility] HEMATOLOGY Eosinophils 0.1 0.0 - 0.5 09/23 [place] # /2018 [facility] HEMATOLOGY Segs 70.7 45.0 - 09/23 [place] 75.0 [facility] HEMATOLOGY Lymphocytes 21.8 20.0 - 09/23 [place] 40.0 2019 [facility] HEMATOLOGY Lymphocytes 2.4 1.0 - 5.5 09/23 [place] # /2019 [facility] HEMATOLOGY Neutrophils 7.6 1.5 - 8.1 09/23 [facility] HEMATOLOGY Monocytes # 0.7 0.0 - 0.8 09/23 /2018 [facility] HEMATOLOGY Monocytes 6.7 2.0 - 12.0 09/23 2018 [facility] HEMATOLOGY Basophils 0.3 0.0 - 1.0 09/23 [facility] HEMATOLOGY Eosinophils 0.5 0.0 - 4.0 09/23 2018 [facility] CHEM PANEL Magnesium 2.2 1.8 - 2.4 09/23 [facility] CHEM PANEL Phosphorus 3.0 2.5 - 4.5 09/23 [facility] CHEM PANEL eGFR 69 09/23 Result Comment: The Medical eGFR is Center calculated using the CKD-EPI formula. In most young, healthy individuals the eGFR will be >90 mL/min/1.73m2 . The eGFR declines with age. An eGFR of 60-89 may be normal in some populations, particularly the elderly, for whom the CKD-EPI formula has not been extensively validated. Use of the eGFR is not recommended in the following populations:< br/>
Teresa viduals with unstable creatinine concentration s, including patients and those with serious co-morbid conditions.<b r/>
Patie nts with extremes in muscle mass or diet.

The data above are obtained from the National Kidney Disease Education Program (NKDEP) which additionally recommends that when the eGFR is used in patients with extremes of body mass index for purposes of drug dosing, the eGFR should be multiplied by the estimated BMI. CHEM PANEL CO2 28 24 - 32 09/23 [facility] CHEM PANEL Sodium Lvl 141 135 - 145 09/23 [facility] CHEM PANEL Potassium 3.8 3.5 - 5.1 09/23 [facility] CHEM PANEL Chloride Lvl 107 95 - 109 09/23 [facility] CHEM PANEL AGAP 9.8 10.0 - 09/23 20.0 [facility] CHEM PANEL Calcium Lvl 8.1 8.5 - 10.5 09/23 [facility] CHEM PANEL BUN 23 7 - 22 09/23 [facility] CHEM PANEL Creatinine 0.86 0.50 - 09/23 [facility] 1.40 [facility] CHEM PANEL Glucose Lvl 43 70 - 99 09/23 Result Comment: [facility] Result(s) called to Mony Figueroa at 09/23/2018 08:35 by . Read back OK.
Reche cked HEMATOLOGY Hgb 14.6 12.0 - 09/23 [place] 16.0 [facility] HEMATOLOGY Hct 44.7 36.0 - 09/23 [facility] 48.0 [facility] HEMATOLOGY RBC 4.85 4.20 - 09/23 [place] 5.40 /2018 [facility] HEMATOLOGY WBC 14.1 3.7 - 10.4 09/23 [facility] HEMATOLOGY MPV 10.9 7.4 - 10.4 09/23 2018 [facility] HEMATOLOGY RDW 14.2 11.5 - 09/23 [facility] 14.5 [facility] HEMATOLOGY Platelet 114 133 - 450 09/23 2018 [facility] HEMATOLOGY MCV 92.2 80.0 - 09/23 [facility] 98.0 [facility] HEMATOLOGY MCH 30.1 27.0 - 09/23 [place] 31.0 [facility] HEMATOLOGY MCHC 32.6 32.0 - 09/23 [facility] 36.0 [facility] PARATHYROID Ca Norm WB 1.05 1.05 - 09/23 [facility] PROFILE 06.25 [facility] PARATHYROID Ca Ion WB 1.00 1.05 - 09/23 [facility] PROFILE 06.25 [facility] CHEM PANEL Bili Total 0.6 0.2 - 1.3 09/22 [facility] CHEM PANEL AST 35 0 - 37 09/22 2018 [facility] CHEM PANEL Alk Phos 95 39 - 136 09/22 2018 [facility] CHEM PANEL ALT 47 0 - 65 09/22 2018 [facility] CHEM PANEL eGFR 52 09/22 [facility] Comment: The Medical eGFR is Center calculated using the CKD-EPI formula. In most young, healthy individuals the eGFR will be >90 mL/min/1.73m2 . The eGFR declines with age. An eGFR of 60-89 may be normal in some populations, particularly the elderly, for whom the CKD-EPI formula has not been extensively validated. Use of the eGFR is not recommended in the following populations:< br/>
Teresa viduals with unstable creatinine concentration s, including patients and those with serious co-morbid conditions.<b r/>
Patie nts with extremes in muscle mass or diet.

The data above are obtained from the National Kidney Disease Education Program (NKDEP) which additionally recommends that when the eGFR is used in patients with extremes of body mass index for purposes of drug dosing, the eGFR should be multiplied by the estimated BMI. CHEM PANEL Albumin Lvl 2.3 3.5 - 5.0 09/[address] CHEM PANEL Total 7.1 6.4 - 8.4 09/22 [facility] Protein 2018 [facility] CHEM PANEL CO2 26 24 - 32 09/[address] CHEM PANEL Calcium Lvl 8.1 8.5 - 10.5 09/[address] CHEM PANEL Chloride Lvl 102 95 - 109 09/[address] CHEM PANEL Potassium 4.3 3.5 - 5.1 09/22 [facility] /2018 [facility] CHEM PANEL Sodium Lvl 135 135 - 145 09/[address] CHEM PANEL Creatinine 1.07 0.50 - 09/22 [facility] Lvl 1.40 [facility] CHEM PANEL Glucose Lvl 272 70 - 99 09/[address] CHEM PANEL BUN 29 7 - 22 09/[address] CHEM PANEL Globulin 4.8 2.7 - 4.2 09/[address] CHEM PANEL A/G Ratio 0.5 0.7 - 1.6 09/[address] CHEM PANEL B/C Ratio 27 6 - 25 09/[address] CHEM PANEL AGAP 11.3 10.0 - 09/22 [facility] 20.0 [facility] HEMATOLOGY Monocytes 6.5 2.0 - 12.0 09/[address] HEMATOLOGY Eosinophils 0.1 0.0 - 4.0 09/[address] HEMATOLOGY Basophils 0.2 0.0 - 1.0 09/[address] HEMATOLOGY Segs 73.8 45.0 - 09/22 [place] 75.0 [facility] HEMATOLOGY Lymphocytes 19.4 20.0 - 09/22 [place] 40.0 2019 [facility] HEMATOLOGY Neutrophils 6.0 1.5 - 8.1 09/22 [facility]2018 [facility] HEMATOLOGY Lymphocytes 1.6 1.0 - 5.5 09/[address] HEMATOLOGY Monocytes # 0.5 0.0 - 0.8 09/[address] HEMATOLOGY MPV 11.3 7.4 - 10.4 09/22 [facility]2018 [facility] HEMATOLOGY MCHC 33.1 32.0 - 09/22 [facility] 36.0 [facility] HEMATOLOGY RDW 14.0 11.5 - 09/22 [facility] 14.5 [facility] HEMATOLOGY Platelet 106 133 - 450 09/22 [facility] HEMATOLOGY MCV 93.1 80.0 - 09/22 [facility] 98.0 [facility] HEMATOLOGY Hct 44.2 36.0 - 09/22 48.0 [facility] HEMATOLOGY MCH 30.8 27.0 - 09/22 31.0 [facility] HEMATOLOGY RBC 4.74 4.20 - 09/22 [facility] 5.40 [facility] HEMATOLOGY WBC 8.1 3.7 - 10.4 09/22 [facility] HEMATOLOGY Hgb 14.6 12.0 - 09/22 [facility] 16.0 [facility] CHEM PANEL Phosphorus 3.3 2.5 - 4.5 09/18 [facility] CHEM PANEL Magnesium 2.0 1.8 - 2.4 09/18 [facility] CHEM PANEL eGFR 70 09/18 [facility] Comment: The Medical eGFR is Center calculated using the CKD-EPI formula. In most young, healthy individuals the eGFR will be >90 mL/min/1.73m2 . The eGFR declines with age. An eGFR of 60-89 may be normal in some populations, particularly the elderly, for whom the CKD-EPI formula has not been extensively validated. Use of the eGFR is not recommended in the following populations:< br/>
Teresa viduals with unstable creatinine concentration s, including patients and those with serious co-morbid conditions.<b r/>
Patie nts with extremes in muscle mass or diet.

The data above are obtained from the National Kidney Disease Education Program (NKDEP) which additionally recommends that when the eGFR is used in patients with extremes of body mass index for purposes of drug dosing, the eGFR should be multiplied by the estimated BMI. CHEM PANEL Calcium Lvl 8.7 8.5 - 10.5 09/18 [facility] CHEM PANEL Creatinine 0.84 0.50 - 09/18 [facility] Lvl 1.40 [facility] CHEM PANEL Sodium Lvl 142 135 - 145 09/18 [facility] CHEM PANEL BUN 32 7 - 22 09/18 [facility] CHEM PANEL Chloride Lvl 106 95 - 109 09/18 [facility]2018 [facility] CHEM PANEL CO2 32 24 - 32 09/18 2018 [facility] CHEM PANEL Potassium 3.9 3.5 - 5.1 09/18 [facility] Lvl [facility] CHEM PANEL Glucose Lvl 107 70 - 99 09/[address] CHEM PANEL AGAP 7.9 10.0 - 09/18 [place] 20.0 [facility] HEMATOLOGY Monocytes # 0.7 0.0 - 0.8 09/18 [facility]2018 [facility] HEMATOLOGY Lymphocytes 1.7 1.0 - 5.5 09/18 [facility] /2018 [facility] HEMATOLOGY Neutrophils 6.0 1.5 - 8.1 09/18 [facility] HEMATOLOGY Basophils 0.1 0.0 - 1.0 09/18 [facility]2018 [facility] HEMATOLOGY Monocytes 8.5 2.0 - 12.0 09/18 [facility]2018 [facility] HEMATOLOGY Lymphocytes 20.3 20.0 - 09/18 [place] 40.0 [facility] HEMATOLOGY Segs 71.1 45.0 - 09/18 [place] 75.0 [facility] HEMATOLOGY MCHC 33.8 32.0 - 09/18 [place] 36.0 [facility] HEMATOLOGY RDW 14.1 11.5 - 09/18 [facility] 14.5 [facility] HEMATOLOGY MCH 31.2 27.0 - 09/18 [facility] 31.0 [facility] HEMATOLOGY MCV 92.2 80.0 - 09/18 [facility] 98.0 [facility] HEMATOLOGY Hct 44.7 36.0 - 09/18 [place] 48.0 2019 [facility] HEMATOLOGY RBC 4.85 4.20 - 09/18 [place] 5.40 2019 [facility] HEMATOLOGY WBC 8.5 3.7 - 10.4 09/18 [facility]2018 [facility] HEMATOLOGY Hgb 15.1 12.0 - 09/18 [place] 16.0 2019 [facility] HEMATOLOGY MPV 11.8 7.4 - 10.4 09/18 [facility]2018 [facility] HEMATOLOGY Platelet 81 133 - 450 09/18 [facility]2018 [facility] PARATHYROID Ca Ion WB 1.09 1.05 - 09/18 [place] PROFILE 1. [facility] PARATHYROID Ca Norm WB 1.09 1.05 - 09/18 [facility] PROFILE 1.25 [facility] CHEM PANEL Magnesium 2.0 1.8 - 2.4 09/17 [facility] CHEM PANEL Calcium Lvl 8.6 8.5 - 10.5 09/17 [facility]2018 [facility] CHEM PANEL AGAP 6.4 10.0 - 09/17 [facility] 20.0 [facility] CHEM PANEL eGFR 70 09/17 Result Comment: The Medical eGFR is Center calculated using the CKD-EPI formula. In most young, healthy individuals the eGFR will be >90 mL/min/1.73m2 . The eGFR declines with age. An eGFR of 60-89 may be normal in some populations, particularly the elderly, for whom the CKD-EPI formula has not been extensively validated. Use of the eGFR is not recommended in the following populations:< br/>
Teresa viduals with unstable creatinine concentration s, including patients and those with serious co-morbid conditions.<b r/>
Patie nts with extremes in muscle mass or diet.

The data above are obtained from the National Kidney Disease Education Program (NKDEP) which additionally recommends that when the eGFR is used in patients with extremes of body mass index for purposes of drug dosing, the eGFR should be multiplied by the estimated BMI. CHEM PANEL Potassium 3.4 3.5 - 5.1 09/17 [facility] CHEM PANEL Sodium Lvl 142 135 - 145 09/17 [facility]2018 [facility] CHEM PANEL Chloride Lvl 104 95 - 109 09/17 [facility]2018 [facility] CHEM PANEL Creatinine 0.84 0.50 - 09/17 [facility] 1.40 [facility] CHEM PANEL CO2 35 24 - 32 09/17 [facility]2018 [facility] CHEM PANEL Glucose Lvl 112 70 - 99 09/17 [facility]2018 [facility] CHEM PANEL BUN 37 7 - 22 09/17 [facility]2018 [facility] CHEM PANEL Phosphorus 2.6 2.5 - 4.5 09/17 [facility]2018 [facility] HEMATOLOGY Platelet 71 133 - 450 09/17 [facility]2018 [facility] HEMATOLOGY MCHC 33.1 32.0 - 04 [facility] 36.0 [facility] HEMATOLOGY MPV 10.7 7.4 - 10.4 09/17 [facility] HEMATOLOGY RDW 14.1 11.5 - 09/17 [place] 14.5 [facility] HEMATOLOGY MCH 30.4 27.0 - 09/17 [place] 31.0 [facility] HEMATOLOGY WBC 9.7 3.7 - 10.4 09/17 [facility] HEMATOLOGY MCV 92.0 80.0 - 09/17 [place] 98.0 [facility] HEMATOLOGY Hct 44.7 36.0 - 09/17 [place] 48.0 [facility] HEMATOLOGY RBC 4.86 4.20 - 09/17 [place] 5.40 /2018 [facility] HEMATOLOGY Hgb 14.8 12.0 - 09/17 [place] 16.0 [facility] HEMATOLOGY Lymphocytes 1.4 1.0 - 5.5 09/17 [facility] # [facility] HEMATOLOGY Neutrophils 7.6 1.5 - 8.1 09/17 [facility] # [facility] HEMATOLOGY Monocytes 7.0 2.0 - 12.0 09/17 [facility] HEMATOLOGY Basophils 0.5 0.0 - 1.0 09/17 [facility] HEMATOLOGY Lymphocytes 14.4 20.0 - 09/17 [place] 40.0 [facility] HEMATOLOGY Monocytes # 0.7 0.0 - 0.8 09/17 [facility] HEMATOLOGY Segs 78.1 45.0 - 09/17 [facility] 75.0 [facility] PARATHYROID Ca Ion WB 1.11 1.05 - 09/17 [facility] PROFILE 1. [facility] PARATHYROID Ca Norm WB 1.14 1.05 - 09/17 [facility] PROFILE 1. [facility] CHEM PANEL Magnesium 2.1 1.8 - 2.4 09/16 [facility] Lvl [facility] CHEM PANEL Phosphorus 2.0 2.5 - 4.5 09/16 [facility] ELECTROLYTE AGAP 8.1 10.0 - 09/16 [facility] S 20.0 [facility] ELECTROLYTE eGFR 47 09/16 [facility] Comment: The Medical eGFR is Center calculated using the CKD-EPI formula. In most young, healthy individuals the eGFR will be >90 mL/min/1.73m2 . The eGFR declines with age. An eGFR of 60-89 may be normal in some populations, particularly the elderly, for whom the CKD-EPI formula has not been extensively validated. Use of the eGFR is not recommended in the following populations:< br/>
Teresa viduals with unstable creatinine concentration s, including patients and those with serious co-morbid conditions.<b r/>
Patie nts with extremes in muscle mass or diet.

The data above are obtained from the National Kidney Disease Education Program (NKDEP) which additionally recommends that when the eGFR is used in patients with extremes of body mass index for purposes of drug dosing, the eGFR should be multiplied by the estimated BMI. ELECTROLYTE CO2 33 24 - 32 09/16 [facility] 2018 [facility] ELECTROLYTE Calcium Lvl 8.4 8.5 - 10.5 09/16 [facility]2018 [facility] ELECTROLYTE Potassium 4.1 3.5 - 5.1 09/16 [facility] Comment: [facility] Moderately Hemolyzed. ELECTROLYTE Chloride Lvl 102 95 - 109 09/16 [facility]2018 [facility] ELECTROLYTE Sodium Lvl 139 135 - 145 09/16 [facility]2018 [facility] ELECTROLYTE BUN 37 7 - 22 09/[address] ELECTROLYTE Creatinine 1.17 0.50 - 09/16 [facility] Lvl 1.40 [facility] ELECTROLYTE Glucose Lvl 302 70 - 99 09/16 [facility]2018 [facility] HEMATOLOGY Platelet 77 133 - 450 09/16 [facility]2018 [facility] HEMATOLOGY MCHC 33.5 32.0 - 09/16 [place] 36.0 [facility] HEMATOLOGY RDW 14.2 11.5 - 09/16 [place] 14.5 [facility] HEMATOLOGY MPV 11.1 7.4 - 10.4 09/16 [facility]2018 [facility] HEMATOLOGY MCV 92.4 80.0 - 09/16 [place] 98.0 [facility] HEMATOLOGY MCH 31.0 27.0 - 09/16 [facility] 31.0 [facility] HEMATOLOGY Hct 41.6 36.0 - 09/16 [place] 48.0 [facility] HEMATOLOGY RBC 4.50 4.20 - 09/16 [facility] 5.40 [facility] HEMATOLOGY Hgb 14.0 12.0 - 09/16 [place] 16.0 [facility] HEMATOLOGY WBC 10.6 3.7 - 10.4 09/16 [facility]2018 [facility] HEMATOLOGY Neutrophils 8.8 1.5 - 8.1 09/16 [facility] # /2018 [facility] HEMATOLOGY Monocytes # 0.7 0.0 - 0.8 09/16 [facility] /2018 [facility] HEMATOLOGY Basophils 0.3 0.0 - 1.0 09/16 [facility] /2018 [facility] HEMATOLOGY Lymphocytes 1.0 1.0 - 5.5 09/16 [facility] # /2019 [facility] HEMATOLOGY Segs 83.3 45.0 - 09/16 [place] 75.0 /2018 [facility] HEMATOLOGY Lymphocytes 9.9 20.0 - 09/16 [facility] 40.0 [facility] HEMATOLOGY Monocytes 6.5 2.0 - 12.0 09/16 [facility] /2018 [facility] PARATHYROID Ca Norm WB 1.13 1.05 - 09/16 [place] PROFILE 1. [facility] PARATHYROID Ca Ion WB 1.13 1.05 - 09/16 [facility] PROFILE . [facility] URINE AND UA Renal Epi 3 <=0 /LPF 09/15 [facility] [address] [place] [address] URINE AND UA Bacteria Occasional None Seen 09/15 [facility] STOOL /HPF /HPF /2018 [facility] URINE AND UA Mucus Few /LPF None Seen 09/15 [facility] /LPF [address] [place] [address] URINE AND UA Hyal Cast 1 0 - 2 09/15 [facility] /[address] [place] [address] URINE AND UA Amorph Occasional None Seen 09/15 [facility] STOOL Jagruti /HPF /HPF [address] [place] [address] URINE AND UA Protein 30 mg/dL Negative 09/15 [facility] mg/dL /[address] [place] [address] URINE AND UA pH 5.5 5.0 - 8.0 09/15 [facility] [address] [place] [address] URINE AND UA Glucose 250 Negative 09/15 [facility] STOOL *ABN* /2018 [facility] (09/15/18 5:04 PM) [place] URINE AND UA Ketones Negative Negative 09/15 [facility] *NA* /2018 [facility] (09/15/18 5:04 PM) [place] URINE AND UA WBC 5 0 - 5 09/15 [facility] /[address] [place] [address] URINE AND UA RBC 4 0 - 2 09/[address] URINE AND UA Sq Epi Occasional Few /LPF 09/15 [facility] STOOL /LPF /[address] [place] [address] URINE AND UA Leuk Est Negative Negative 09/15 [facility] (4/17/19 5:04 PM) /[address] [place] [address] URINE AND UA Blood Negative Negative 09/15 [facility] STOOL (09/15/18 5:04 PM) [facility] URINE AND UA 0.2 0.1 - 1.0 09/15 [facility] Urobilinogen /2018 [facility] URINE AND UA Nitrite Negative Negative 09/15 [facility] (09/15/18 5:04 PM) [facility] URINE AND UA Bili Negative Negative 09/15 [facility] *NA* /2018 [facility] (09/15/18 5:04 PM) [place] URINE AND UA Spec Grav 1.025 <=1.030 09/15 [facility] STOOL /2018 [facility] URINE AND UA Turbidity Clear Clear 09/15 [facility] (09/15/18 5:04 PM) [facility] URINE AND UA Color Yellow Yellow 09/15 [facility] *NA* /2018 [facility] (09/15/18 5:04 PM) [place] IMMUNOLOGY Striated 1:320 Neg:<1:40 09/15 Result [facility] Muscle IgG Comment: Medical Performed At: [facility]
[address], [place] [id number]<br/ >Kosta Tucker MD Ph:[phone] IMMUNOLOGY MuSK Auto Ab <1.0 09/14 Result [facility] Comment: Medical Reference Center Range:
Negative: <1.0
Positive: 1.0 or higher
A positive result, in the context of congruent clinical
findings, confirms the diagnosis of autoimmune MuSK
myasthenia gravis.
C OMMENTS:
- Myasthenia gravis (MG) is caused by auto-antibodi es
against proteins of the neuromuscular junction. Most
cases (about 90%) of generalized MG are anti-
acetylcholine receptor (AChR) antibody-posi tive.(1)
- Of generalized MG patients who lack anti-AChR antibodies
(AChR-seroneg ative), about 40% are positive for Muscle-
Specific Kinase (MuSK) antibody.(1,2 )
- Though a positive MuSK result is specific for the
diagnosis of MuSK MG, a negative MuSK result does not
rule out a MG diagnosis.&lt ;br/> - MuSK antibody levels have been shown to correlate with
disease severity.(3) Serial measurements may be useful
to follow treatment.
References:
1. Edvin-Donn S et al. J Autoimmunity 2014;52:90-10 0.
2. Yeny AVILEZ et al. PNAS 2013;110(13); 64007-72509.< br/>3. Scot E et al. Neurology 2006;67:505-5 07.
This test was developed and its performance characteristi cs
determ ined by [facility]. It has not been cleared or approved
by the Food and Drug Administratio n.
Perfor med At: [facility] [employer] [facility]
[address] [place], [place] [id number]<br/ >Feliciano Alston MD Ph:[phone] BACTERIAL - MRSA by PCR Negative 09/14 [facility] SEROLOGY (09/14/18 11:23 AM) /2018 [facility] IMMUNOLOGY ACHr Binding 1.25 0.00 - 09/14 Result [facility] Ab 0.24 Comment: [facility] Negative: 0.00 - 0.24
Borderline: 0.25 - 0.40
Positive: > 0.40
Perf ormed At: [facility]
[address], [place] [id number]<br/ >Kosta Tucker MD Ph:[phone] IMMUNOLOGY ACHr Block 42 0 - 25 09/14 Result [facility] Ab /2018 Comment: [facility] Negative: 0 - 25
Borderline: 26 - 30
Positive: >30

Results for this test are for research purposes
only by the assay's racker octave board. The performance<b r/>characteri stics of this product have not been
esta blished. Results should not be used as a
diagnos tic procedure without confirmation of the
diagn osis by another medically established<b r/>diagnostic product or procedure.&lt ;br/>Performe d At: [facility]
[address], [place] [id number]<br/ >Kosta Tucker MD Ph:[phone] HEMATOLOGY Eosinophils 0.1 0.0 - 0.5 09/13 [facility] /[address] [place] [address] HEMATOLOGY Basophils # 0.1 0.0 - 0.2 09/[address] HEMATOLOGY Eosinophils 1.1 0.0 - 4.0 09/[address] HEMATOLOGY Basophils # 0.1 0.0 - 0.2 09/[address] HEMATOLOGY Eosinophils 0.1 0.0 - 0.5 09/13 [facility] /2018 [facility] HEMATOLOGY Eosinophils 0.9 0.0 - 4.0 09/[address] HEMATOLOGY PB Smear Peripheral 09/12 [facility] blood [facility] smear Center examinatio n; - Platelets are decreased with few giant forms. No platelet clump. - RBCs are normocytic ; no schistocyt e - Leukocytes show unremarkab le morphology ; few reactive lymphocyte s. Clinical correlatio n is suggested. CPT 05347 URINE AND UA Bacteria Occasional None Seen 09/12 [facility] /HPF /HPF [facility] URINE AND UA <1.0 0.1 - 1.0 09/12 [facility] Urobilinogen /2018 [facility] URINE AND UA Ketones Trace Negative 09/12 [facility] *ABN* [facility] (09/12/18 11:27 AM) [place] URINE AND UA Blood Small Negative 09/12 [facility] *ABN* [facility] (09/12/18 11:27 AM) [place] URINE AND UA Bili Negative Negative 09/12 [facility] *NA* [facility] (09/12/18 11:27 AM) [place] URINE AND UA Glucose 150mg/dl 09/12 [facility] /2018 [facility] URINE AND UA Protein 100 mg/dL Negative 09/12 [facility] mg/dL [facility] URINE AND UA Turbidity Slight Clear 09/12 [facility] *ABN* [facility] (09/12/18 11:27 AM) [place] URINE AND UA pH 5.0 5.0 - 8.0 09/12 [facility] /[address] [place] [address] URINE AND UA Spec Grav 1.018 <=1.030 09/12 [facility] [address] [place] [address] URINE AND UA Color Yellow Yellow 09/12 [facility] STOOL *NA* /2018 [facility] (09/12/18 11:27 AM) [place] URINE AND UA Mucus Few /LPF None Seen 09/12 [facility] /[facility] [address] [place] [address] URINE AND UA Hyal Cast 4 0 - 2 09/12 [facility] URINE AND UA WBC 4 0 - 5 09/[address] URINE AND UA Nitrite Negative Negative 09/12 [facility] (09/12/18 11:27 AM) [facility] URINE AND UA RBC 1 0 - 2 09/[address] URINE AND UA Sq Epi Moderate Few /LPF 09/12 [facility] /[facility] URINE AND UA Leuk Est Negative Negative 09/12 [facility] (09/12/18 11:27 AM) [facility] CHEM PANEL Bili Total 0.7 0.2 - 1.3 09/[address] CHEM PANEL Alk Phos 141 39 - 136 09/[address] CHEM PANEL Total 8.3 6.4 - 8.4 09/12 [facility] CHEM PANEL AST 25 0 - 37 09/[address] CHEM PANEL ALT 34 0 - 65 09/[address] CHEM PANEL Albumin Lvl 2.7 3.5 - 5.0 09/[address] CHEM PANEL Globulin 5.6 2.7 - 4.2 09/[address] CHEM PANEL B/C Ratio 9 6 - 25 09/[address] CHEM PANEL A/G Ratio 0.5 0.7 - 1.6 09/[address] HEMATOLOGY PTT 31.6 22.9 - 09/12 [place] 35.8 2019 [facility] HEMATOLOGY PT 14.2 12.0 - 09/12 [facility] 14.7 [facility] HEMATOLOGY INR 1.12 0.85 - 09/12 [place] 1.17 [facility] HEMATOLOGY Eosinophils 2.4 0.0 - 4.0 09/[address] HEMATOLOGY Eosinophils 0.2 0.0 - 0.5 09/12 [facility] # /2019 [facility] HEMATOLOGY Basophils # 0.2 0.0 - 0.2 09/12 [facility] /2019 [facility] IMMUNOLOGY JAK2 (V617F) Comment 09/12 Result [facility] Director /2018 Comment: Medical Review Marlys Villanueva MD, PhD
[facility] anthony, Molecular Oncology
[facility]<br/ >[place] [address]
<b r/>Performed At: [facility]
[address] [facility], [place] [id number]< br/>Samara Cordova MD Ph:[phone] IMMUNOLOGY JAK2 (V617F) Comment 09/12 Result [facility] References Comment: Medical
[facility] EJ, Sanchez WISE, Javed PJ, et al. Acquired
mutation of the tyrosine kinase JAK2 in human
mye loproliferati ve disorders. Lancet. 2004Aug 17-;<br/ >365(2634):85 54-1061. Ankur Norman, Mj V, [address] HANK. A
unique clonal JAK2 mutation leading to constitutive< br/>signaling causes polycythaemia vera. Nature. 2004Sep 26;
43 4(9002):1140- 1143.
Flora R, Marianne F, Lizbeth , et al. A gain-of-
function mutation of JAK2 in myeloprolifer ative disorders.
N Engl J Med. 2004Sep 26; 35217):1779- 1790. IMMUNOLOGY JAK2 (V617F) Comment 09/12 Result [facility] Mutation Qnt /2018 Comment: Medical Result NEGATIVE
[place]
The JAK2 V617F mutation is not detected in the provided
specimen of this individual. This result does not rule out
the presence of the JAK2 mutation at a level below the
sensi tivity of detection of this assay, or the presence of
other mutations within JAK2 not detected by this assay. IMMUNOLOGY JAK2 (V617F) Comment 09/12 Result [facility] Comment: Medical
[facility] genomic DNA was extracted and subjected to TaqMan
re al-time PCR amplification /detection. Two amplification
products per sample were monitored by real-time PCR using
winifred mers/probes specific to JAK2 wild type (WT) and JAK2
muta nt V617F. The [employer] Absolute Quantitation software
will compare the patient specimen values to the standard
curves and generate percent values for wild type and
mutan t type. The numerical values of Sample Mutant
Qu antity/(Sampl e Mutant Quantity+ Sample Wild Type
Q uantity)X100 is reported as a percentage. In vitro studies
h ave indicated that this assay has an analytical
sensitivity of 1%. IMMUNOLOGY JAK2 (V617F) Comment 09/12 Result [facility] Comment: [facility] Quantitative Real-Time PCR assay detects V617F mutation
(c.1849 G>T) observed in approximately 95% polycythemia< br/>vera (PV), 55% essential thrombocythem ia (ET) and 55%
prima ry myelofibrosis (PMF). It is also infrequently< br/>present (3-5%) in myelodysplast ic syndrome, chronic
m yelomonocytic leukemia, and other atypical chronic myeloid
d isorders. The results should be interpreted in the
jacinto xt of all clinical and laboratory findings. No
therap eutic action should be taken based solely on these
res ults. This assay detects only the JAK2 V617F point
mut ation. Other mutations that may occur in the JAK2 gene
will not be detected. CHEM PANEL Bili Direct <0.1 0.0 - 0.3 09/11 [facility] CHEM PANEL Bili Unable to 0.0 - 1.0 09/11 [facility] Indirect [facility] CHEM PANEL A/G Ratio 0.5 0.7 - 1.6 09/11 [facility]2018 [facility] CHEM PANEL ALT 40 0 - 65 09/11 [facility]2018 [facility] CHEM PANEL AST 31 0 - 37 09/[address] [place] [address] CHEM PANEL Alk Phos 144 39 - 136 09/11 [facility]2018 [facility] CHEM PANEL Bili Total 0.8 0.2 - 1.3 09/11 [facility]2018 [facility] CHEM PANEL Total 7.3 6.4 - 8.4 09/11 [facility] Protein [address] [place] [address] CHEM PANEL Albumin Lvl 2.5 3.5 - 5.0 09/11 [facility] CHEM PANEL Globulin 4.8 2.7 - 4.2 09/11 [facility] Culture: 10,000 - 09/10 [facility] Urine 50,000 [facility] CFU/mL [place] Skin Era BLOOD BANK Antibody Negative 09/10 [facility] RESULTS Scrn (09/10/18 5:06 PM) [facility] BLOOD BANK ABO/Rh O POS 09/10 [facility] CHEM PANEL Alk Phos 166 39 - 136 09/[address] CHEM PANEL Bili Total 0.8 0.2 - 1.3 09/[address] CHEM PANEL ALT 45 0 - 65 09/[address] CHEM PANEL AST 35 0 - 37 09/[address] CHEM PANEL Total 7.1 6.4 - 8.4 09/10 [facility] Protein [address] CHEM PANEL Albumin Lvl 2.9 3.5 - 5.0 09/[address] CHEM PANEL B/C Ratio 11 6 - 25 09/[address] CHEM PANEL A/G Ratio 0.7 0.7 - 1.6 09/[address] CHEM PANEL Globulin 4.2 2.7 - 4.2 09/[address] HEMATOLOGY Heparin Negative 1 Negative 09/10 Result [facility] Ab(SRIDEVI) (09/10/18 5:06 PM) Comment: This Medical assay detects Center heparin antibodies of IgG isotype. Antibodies of other isotypes have been reported to cause heparin-induc ed thrombocytope davey. Therefore, if there is a strong clinical suspicion of HIT, additional study with a serotonin release assay is recommented. HEMATOLOGY Pat Od Value 0.127 09/10 [facility] HEMATOLOGY Pos CO Value 0.400 09/10 [facility]2018 [facility] HEMATOLOGY INR 1.08 0.85 - 09/10 [facility] 1.17 /2018 [facility] HEMATOLOGY Thrombin 19.1 15.0 - 09/10 [facility] Time 21.2 [facility] HEMATOLOGY D-Dimer 1.22 09/10 [facility] HEMATOLOGY Fibrinogen 548 230 - 510 09/10 [place] Lvl /2018 [facility] HEMATOLOGY PTT 30.3 22.9 - 09/10 [place] 35.8 /2018 [facility] HEMATOLOGY PT 13.8 12.0 - 09/10 [place] 14.7 /2018 [facility] IMMUNOLOGY IgA Lvl 615.0 68.0 - 09/10 [place] 378.0 /2018 [facility] URINE AND UA Glucose 50mg/dl 09/10 [facility] URINE AND UA Turbidity Marked Clear 09/10 [facility] *ABN* [facility] (09/10/18 5:06 PM) [place] URINE AND UA Color Yellow Yellow 09/10 [facility] *NA* [facility] (09/10/18 5:06 PM) [place] URINE AND UA Protein 30 mg/dL Negative 09/10 [facility] mg/dL [facility] URINE AND UA pH 6.0 5.0 - 8.0 09/10 [facility] [address] [place] [address] URINE AND UA Ketones Trace Negative 09/10 [facility] *ABN* [facility] (09/10/18 5:06 PM) [place] URINE AND UA Bili Negative Negative 09/10 [facility] *NA* [facility] (09/10/18 5:06 PM) [place] URINE AND UA Leuk Est Trace Negative 09/10 [facility] *ABN* [facility] (09/10/18 5:06 PM) [place] URINE AND UA <1.0 0.1 - 1.0 09/10 [facility] Urobilinogen /2018 [facility] URINE AND UA Blood Small Negative 09/10 [facility] *ABN* [facility] (09/10/18 5:06 PM) [place] URINE AND UA Nitrite Negative Negative 09/10 [facility] (09/10/18 5:06 PM) /2018 [facility] URINE AND UA Spec Grav 1.012 <=1.030 09/10 [facility] [address] [place] [address] URINE AND UA WBC 19 0 - 5 09/10 [facility] [address] [place] [address] URINE AND UA Sq Epi Few /LPF Few /LPF 09/10 [facility] /[address] [place] [address] URINE AND UA RBC 1 0 - 2 09/10 [facility] STOOL [facility] URINE AND UA Mucus Few /LPF None Seen 09/10 [facility] STOOL /LPF /2018 [facility] HEMATOLOGY Bands 0.0 0.0 - 11.0 09/10 [facility] /2018 [facility] HEMATOLOGY Large Plt Slight 09/10 [facility]2018 [facility] HEMATOLOGY Atypical 0.0 <=0.0 % 09/10 [facility] Lymphs [facility] IMMUNOLOGY Striated 1:320 Neg:<1:40 09/10 Result [facility] Muscle IgG Comment: Medical Performed At: Center [facility]
[address] [place], [place] [id number]<br/ >Kosta Tucker MD Ph:[phone] IMMUNOLOGY IgA Lvl 592.0 68.0 - 09/10 [facility] 378.0 [facility] HEMATOLOGY Sed Rate 20 0 - 20 09/09 [facility] IMMUNOLOGY C-REACTIVE 5.2 <=2.9 mg/L 09/09 PROTEIN [facility] HEMATOLOGY PTT 32.0 22.9 - 09/08 35.8 /2019 [facility] HEMATOLOGY PT 13.5 12.0 - 09/08 14.7 [facility] HEMATOLOGY INR 1.05 0.85 - 09/08 1.17 /2018 [facility] ELECTROLYTE AGAP 15.8 10.0 - 09/08 S 20.0 [facility] ELECTROLYTE B/C Ratio 16 6 - 25 09/08 S /2018 [facility] ELECTROLYTE Globulin 4.2 2.7 - 4.2 09/08 S [facility] ELECTROLYTE A/G Ratio 0.7 0.7 - 1.6 09/08 S /2018 [facility] ELECTROLYTE Sodium Lvl 147 135 - 145 09/08 S /2018 [facility] ELECTROLYTE Potassium 3.8 3.5 - 5.1 09/08 S Lvl /2018 [facility] ELECTROLYTE Chloride Lvl 107 95 - 109 09/08 S /2018 [facility] ELECTROLYTE BUN 21 7 - 22 09/08 S /2018 [facility] ELECTROLYTE Glucose Lvl 144 70 - 99 09/08 S /2018 [facility] ELECTROLYTE Albumin Lvl 2.9 3.5 - 5.0 09/08 S /2018 [facility] ELECTROLYTE CO2 28 24 - 32 09/08 S [facility] ELECTROLYTE eGFR 40 09/08 Result [facility] S Comment: The [facility] eGFR is City calculated using the CKD-EPI formula. In most young, healthy individuals the eGFR will be >90 mL/min/1.73m2 . The eGFR declines with age. An eGFR of 60-89 may be normal in some populations, particularly the elderly, for whom the CKD-EPI formula has not been extensively validated. Use of the eGFR is not recommended in the following populations:< br/>
Teresa viduals with unstable creatinine concentration s, including patients and those with serious co-morbid conditions.<b r/>
Patie nts with extremes in muscle mass or diet.

The data above are obtained from the National Kidney Disease Education Program (NKDEP) which additionally recommends that when the eGFR is used in patients with extremes of body mass index for purposes of drug dosing, the eGFR should be multiplied by the estimated BMI. ELECTROLYTE AST 137 0 - 37 09/08 S [facility] ELECTROLYTE ALT 67 0 - 65 09/08 S [facility] ELECTROLYTE Creatinine 1.33 0.50 - 09/08 S Lvl 1.40 /2018 [facility] ELECTROLYTE Bili Total 1.3 0.2 - 1.3 09/08 S [facility] ELECTROLYTE Total 7.1 6.4 - 8.4 10 MH S Protein [facility] ELECTROLYTE Alk Phos 195 39 - 136 09/08 S [facility] ELECTROLYTE Calcium Lvl 9.3 8.5 - 10.5 09/08 S [facility] HEMATOLOGY Basophils # 0.1 0.0 - 0.2 09/08 [facility] HEMATOLOGY Neutrophils 2.5 1.5 - 8.1 09/08 MH # [facility] HEMATOLOGY Eosinophils 0.2 0.0 - 0.5 10 MH # /2018 [facility] HEMATOLOGY Monocytes # 0.7 0.0 - 0.8 09/08 [facility] HEMATOLOGY Lymphocytes 3.3 1.0 - 5.5 10 MH # /2018 [facility] HEMATOLOGY Monocytes 9.8 2.0 - 12.0 09/08 [facility] HEMATOLOGY Eosinophils 2.5 0.0 - 4.0 09/08 [facility] HEMATOLOGY Basophils 2.0 0.0 - 1.0 09/08 [facility] HEMATOLOGY Lymphocytes 48.8 20.0 - 09/08 40.0 [facility] HEMATOLOGY Segs 36.9 45.0 - 09/08 75.0 [facility] HEMATOLOGY MPV 11.3 7.4 - 10.4 09/08 [facility] HEMATOLOGY MCH 30.3 27.0 - 09/08 31.0 [facility] HEMATOLOGY Platelet 125 133 - 450 09/08 [facility] HEMATOLOGY RDW 13.9 11.5 - 09/08 14. [facility] HEMATOLOGY MCV 92.9 80.0 - 09/08 98.0 [facility] HEMATOLOGY MCHC 32.6 32.0 - 09/08 36.0 [facility] HEMATOLOGY WBC 6.8 3.7 - 10.4 09/08 [facility] HEMATOLOGY RBC 5.13 4.20 - 09/08 5.40 [facility] HEMATOLOGY Hgb 15.5 12.0 - 09/08 16.0 [facility] HEMATOLOGY Hct 47.7 36.0 - 09/08 48.0 [facility] LIPIDS VLDL 24 09/08 [facility] LIPIDS LDL 45 <=99 mg/dL 09/08 (Calculated) [facility] LIPIDS CHD Risk 2.82 3.90 - 09/08 5.80 [facility] LIPIDS HDL 38 >=61 mg/dL 09/08 [facility] LIPIDS Trig 118 <=149 09/08 mg/dL [facility] LIPIDS Chol 107 <=199 09/08 mg/dL [facility] SPECIAL Hgb A1C 12.2 <=5.6 % 09/08 CHEMISTRY [facility] HEMATOLOGY MPV 9.7 7.4 - 10.4 08/19 [facility] HEMATOLOGY Platelet 163 133 - 450 08/19 [facility] HEMATOLOGY RDW 13.7 11.5 - 08/19 [place] 14. [facility] HEMATOLOGY Hgb 17.8 12.0 - 08/19 [place] 16.0 [facility] HEMATOLOGY Hct 52.9 36.0 - 08/19 [place] 48.0 [facility] HEMATOLOGY MCV 92.3 80.0 - 08/19 [place] 98.0 [facility] HEMATOLOGY RBC 5.73 4.20 - 08/19 [facility] 5.40 [facility] HEMATOLOGY WBC 8.5 3.7 - 10.4 08/19 [facility] HEMATOLOGY MCHC 33.6 32.0 - 08/19 [facility] 36.0 [facility] HEMATOLOGY MCH 31.0 27.0 - 08/19 [facility] 31.0 [facility] CARDIAC BNP 98 <=100 08/19 [facility] ENZYMES pg/mL [facility] CHEM PANEL Phosphorus 3.4 2.5 - 4.5 08/19 [facility] CHEM PANEL Magnesium 1.9 1.8 - 2.4 08/19 [facility] l [facility] CHEM PANEL eGFR 62 08/19 Result Comment: The [facility] eGFR is Center calculated using the CKD-EPI formula. In most young, healthy individuals the eGFR will be >90 mL/min/1.73m2 . The eGFR declines with age. An eGFR of 60-89 may be normal in some populations, particularly the elderly, for whom the CKD-EPI formula has not been extensively validated. Use of the eGFR is not recommended in the following populations:< br/>
Teresa viduals with unstable creatinine concentration s, including patients and those with serious co-morbid conditions.<b r/>
Patie nts with extremes in muscle mass or diet.

The data above are obtained from the National Kidney Disease Education Program (NKDEP) which additionally recommends that when the eGFR is used in patients with extremes of body mass index for purposes of drug dosing, the eGFR should be multiplied by the estimated BMI. CHEM PANEL Calcium Lvl 8.8 8.5 - 10.5 08/19 [facility] CHEM PANEL CO2 23 24 - 32 08/19 [facility]2018 [facility] CHEM PANEL Chloride Lvl 106 95 - 109 08/19 [facility]2018 [facility] CHEM PANEL Potassium 4.6 3.5 - 5.1 08/19 Result [facility] Comment: [facility] Moderately Hemolyzed. CHEM PANEL Creatinine 0.94 0.50 - 08/19 [facility] Lvl 1.40 [facility] CHEM PANEL Sodium Lvl 138 135 - 145 08/19 2018 [facility] CHEM PANEL BUN 13 7 - 22 08/19 [facility]2018 [facility] CHEM PANEL Glucose Lvl 160 70 - 99 08/19 [facility] CHEM PANEL AGAP 13.6 10.0 - 08/19 [place] 20.0 [facility] HEMATOLOGY Eosinophils 0.2 0.0 - 0.5 08/19 [place] # /2019 [facility] HEMATOLOGY Basophils # 0.1 0.0 - 0.2 08/19 [facility] HEMATOLOGY Segs 47.9 45.0 - 08/19 [place] 75.0 2019 [facility] HEMATOLOGY Lymphocytes 40.1 20.0 - 08/19 [place] 40.0 2019 [facility] HEMATOLOGY Lymphocytes 3.9 1.0 - 5.5 08/19 /2018 [facility] HEMATOLOGY Monocytes # 0.9 0.0 - 0.8 08/19 [facility] HEMATOLOGY Monocytes 8.8 2.0 - 12.0 08/19 [facility] HEMATOLOGY Basophils 1.2 0.0 - 1.0 08/19 [facility] HEMATOLOGY Eosinophils 2.0 0.0 - 4.0 08/19 [facility] HEMATOLOGY Neutrophils 4.7 1.5 - 8.1 08/19 [facility] HEMATOLOGY INR 1.09 0.85 - 08/19 [place] 1.17 [facility] HEMATOLOGY PT 13.9 12.0 - 08/19 [place] 14.7 [facility] HEMATOLOGY PTT 31.0 22.9 - 08/19 [place] 35.8 /2019 [facility] HEMATOLOGY MCV 93.0 80.0 - 08/19 [place] 98.0 2019 [facility] HEMATOLOGY MCH 31.1 27.0 - 08/19 [place] 31.0 [facility] HEMATOLOGY RDW 13.7 11.5 - 08/19 [place] 14.5 2019 [facility] HEMATOLOGY MCHC 33.4 32.0 - 08/19 [place] 36.0 2019 [facility] HEMATOLOGY Platelet 77 133 - 450 08/19 [facility] HEMATOLOGY MPV 9.9 7.4 - 10.4 08/19 /2019 [facility] HEMATOLOGY Hct 49.7 36.0 - 08/19 [place] 48.0 2019 [facility] HEMATOLOGY Hgb 16.6 12.0 - 08/19 [place] 16.0 2019 [facility] HEMATOLOGY RBC 5.35 4.20 - 08/19 [facility] [place] 5.40 /2019 [facility] HEMATOLOGY WBC 9.7 3.7 - 10.4 08/[address] PARATHYROID Ca Ion WB 1.02 1.05 - 08/19 [facility] PROFILE 1. [facility] PARATHYROID Ca Norm WB 0.98 1.05 - 08/19 [facility] PROFILE . [facility] URINE AND Occult Bld Negative Negative 08/19 [facility] STOOL Stl (08/19/18 4:40 AM) [facility] Culture: Normal Enteric Era Isolated 08/19 [facility] Stool No Salmonella Or Shigella Isolated [facility] CHEM PANEL Alk Phos 132 39 - 136 08/[address] CHEM PANEL A/G Ratio 0.6 0.7 - 1.6 08/[address] CHEM PANEL ALT 30 0 - 65 08/[address] CHEM PANEL Total 6.9 6.4 - 8.4 08/18 [facility] Protein [facility] CHEM PANEL Albumin Lvl 2.6 3.5 - 5.0 08/[address] CHEM PANEL Globulin 4.3 2.7 - 4.2 08/[address] CHEM PANEL Bili Direct <0.1 0.0 - 0.3 08/[address] CHEM PANEL Bili Total 0.5 0.2 - 1.3 08/[address] CHEM PANEL Bili >0.4 0.0 - 1.0 08/18 [facility] Indirect [facility] CHEM PANEL AST 21 0 - 37 08/[address] CHEM PANEL Calcium Lvl 8.5 8.5 - 10.5 08/[address] CHEM PANEL eGFR 71 08/18 Result [facility] Comment: The Medical eGFR is Center calculated using the CKD-EPI formula. In most young, healthy individuals the eGFR will be >90 mL/min/1.73m2 . The eGFR declines with age. An eGFR of 60-89 may be normal in some populations, particularly the elderly, for whom the CKD-EPI formula has not been extensively validated. Use of the eGFR is not recommended in the following populations:< br/>
Teresa viduals with unstable creatinine concentration s, including patients and those with serious co-morbid conditions.<b r/>
Patie nts with extremes in muscle mass or diet.

The data above are obtained from the National Kidney Disease Education Program (NKDEP) which additionally recommends that when the eGFR is used in patients with extremes of body mass index for purposes of drug dosing, the eGFR should be multiplied by the estimated BMI. CHEM PANEL BUN 13 7 - 22 08/[address] CHEM PANEL Glucose Lvl 162 70 - 99 08/[address] CHEM PANEL CO2 27 24 - 32 08/[address] CHEM PANEL Potassium 3.6 3.5 - 5.1 08/18 [facility] /2018 [facility] CHEM PANEL Sodium Lvl 142 135 - 145 08/[address] CHEM PANEL Chloride Lvl 108 95 - 109 08/[address] CHEM PANEL Creatinine 0.83 0.50 - 08/18 [facility] 1.40 [facility] CHEM PANEL AGAP 10.6 10.0 - 08/18 [facility] 20.0 [facility] CHEM PANEL Magnesium 1.8 1.8 - 2.4 08/18 [facility] [address] [place] [address] CHEM PANEL Phosphorus 3.6 2.5 - 4.5 08/[address] HEMATOLOGY Neutrophils 3.9 1.5 - 8.1 08/[address] HEMATOLOGY Eosinophils 2.5 0.0 - 4.0 08/[address] HEMATOLOGY Basophils 1.9 0.0 - 1.0 08/[address] HEMATOLOGY Monocytes # 0.6 0.0 - 0.8 08/[address] HEMATOLOGY Lymphocytes 3.8 1.0 - 5.5 08/[address] HEMATOLOGY Eosinophils 0.2 0.0 - 0.5 08/[address] HEMATOLOGY Basophils # 0.2 0.0 - 0.2 08/[address] HEMATOLOGY Lymphocytes 44.0 20.0 - 08/18 [place] 40.0 [facility] HEMATOLOGY Segs 45.3 45.0 - 08/18 [place] 75.0 [facility] HEMATOLOGY Monocytes 6.3 2.0 - 12.0 08/[address] HEMATOLOGY Hct 49.2 36.0 - 08/18 [facility] [place] 48.0 2019 [facility] HEMATOLOGY Hgb 17.0 12.0 - 08/18 [place] 16.0 2019 [facility] HEMATOLOGY RBC 5.30 4.20 - 08/18 [place] 5.40 2019 [facility] HEMATOLOGY WBC 8.7 3.7 - 10.4 08/18 /2018 [facility] HEMATOLOGY MCV 92.8 80.0 - 08/18 [place] 98.0 [facility] HEMATOLOGY MPV 9.7 7.4 - 10.4 08/18 /2018 [facility] HEMATOLOGY RDW 13.6 11.5 - 08/18 [place] 14.5 [facility] HEMATOLOGY Platelet 161 133 - 450 08/18 /2018 [facility] HEMATOLOGY MCHC 34.6 32.0 - 08/18 [place] 36.0 [facility] HEMATOLOGY MCH 32.1 27.0 - 08/18 [place] 31.0 [facility] PARATHYROID Ca Norm WB 1.05 1.05 - 08/18 [place] PROFILE 1. [facility] PARATHYROID Ca Ion WB 1.06 1.05 - 08/18 [facility] PROFILE 1. [facility] HEMATOLOGY Monocytes # 0.9 0.0 - 0.8 08/17 /2018 [facility] HEMATOLOGY Eosinophils 0.2 0.0 - 0.5 08/17 [facility] /2018 [facility] HEMATOLOGY Lymphocytes 5.1 1.0 - 5.5 08/17 [place] # /2018 [facility] HEMATOLOGY Basophils # 0.1 0.0 - 0.2 08/17 /2018 [facility] HEMATOLOGY Monocytes 7.6 2.0 - 12.0 08/17 /2018 [facility] HEMATOLOGY Segs 44.9 45.0 - 08/17 [place] 75.0 2019 [facility] HEMATOLOGY Lymphocytes 44.2 20.0 - 08/17 [place] 40.0 2019 [facility] HEMATOLOGY Basophils 1.3 0.0 - 1.0 08/17 /2018 [facility] HEMATOLOGY Eosinophils 2.0 0.0 - 4.0 08/17 [facility] /2018 [facility] HEMATOLOGY Neutrophils 5.2 1.5 - 8.1 08/17 [facility] /2019 [facility] ELECTROLYTE AGAP 11.9 10.0 - 08/16 [facility] S 20.0 [facility] ELECTROLYTE eGFR 64 08/16 Result [facility] S Comment: The Medical eGFR is Center calculated using the CKD-EPI formula. In most young, healthy individuals the eGFR will be >90 mL/min/1.73m2 . The eGFR declines with age. An eGFR of 60-89 may be normal in some populations, particularly the elderly, for whom the CKD-EPI formula has not been extensively validated. Use of the eGFR is not recommended in the following populations:< br/>
Teresa viduals with unstable creatinine concentration s, including patients and those with serious co-morbid conditions.<b r/>
Patie nts with extremes in muscle mass or diet.

The data above are obtained from the National Kidney Disease Education Program (NKDEP) which additionally recommends that when the eGFR is used in patients with extremes of body mass index for purposes of drug dosing, the eGFR should be multiplied by the estimated BMI. ELECTROLYTE Sodium Lvl 142 135 - 145 08/16 [facility] ELECTROLYTE Potassium 3.9 3.5 - 5.1 08/16 [facility] S l [facility] ELECTROLYTE Chloride Lvl 104 95 - 109 08/16 [facility]2018 [facility] ELECTROLYTE CO2 30 24 - 32 08/[address] ELECTROLYTE Calcium Lvl 9.6 8.5 - 10.5 08/[address] ELECTROLYTE BUN 16 7 - 22 08/[address] ELECTROLYTE Glucose Lvl 121 70 - 99 08/[address] ELECTROLYTE Creatinine 0.91 0.50 - 08/16 [facility] [place] [facility] Lvl 1.40 [facility] HEMATOLOGY RBC Morph Normal 08/16 [facility] (08/16/18 3:35 PM) [facility] HEMATOLOGY Plt Morph Normal 08/16 [facility] (08/16/18 3:35 PM) [facility] HEMATOLOGY PTT 32.0 22.9 - 08/16 [facility] 35.8 [facility] HEMATOLOGY PT 12.6 12.0 - 08/16 [facility] 14.7 [facility] HEMATOLOGY INR 0.96 0.85 - 08/16 [facility] 1.17 [facility] BEDSIDE Gluc POC 148.0 65 - 110 03/25 HI <sup>1</sup>I [facility] GLUCOSE Lif nterpretive Medical TESTING Data: Center Upper Reportable Limit: 200 mg/dL. BEDSIDE Comment1 Notify 03/25 NA [facility] GLUCOSE RN/MD /2010 Medical TESTING Center BEDSIDE Comment1 Notify 03/25 NA [facility] GLUCOSE RN/MD /2010 Medical TESTING Center BEDSIDE Gluc POC 140.0 65 - 110 03/25 HI <sup>2</sup>I [facility] GLUCOSE Lifscn nterpretive Medical TESTING Data: Center Upper Reportable Limit: 200 mg/dL. BEDSIDE Comment1 Notify 03/25 NA Dougie GLUCOSE RN/MD /2010 Medical TESTING Center BEDSIDE Gluc POC 137.0 65 - 110 03/25 HI <sup>3</sup>I [facility] GLUCOSE Lifscn nterpretive Medical TESTING Data: Center Upper Reportable Limit: 200 mg/dL. CHEMISTRY Globulin 3.3 2.0 - 4.0 03/25 Normal [facility] Center CHEMISTRY Total 5.4 6.4 - 8.4 03/25 LOW Medical Center CHEMISTRY Albumin Lvl 2.1 3.5 - 5.0 03/25 LOW Medical Center CHEMISTRY ALT 131.0 0 - 65 03/25 [facility] CHEMISTRY Alk Phos 360.0 39 - 136 03/25 [facility] CHEMISTRY A/G Ratio 0.6 0.7 - 1.6 03/25 LOW Medical Center CHEMISTRY AST 144.0 0 - 37 03/25 [facility] Medical Center CHEMISTRY Bili 0.2 0.0 - 1.0 03/25 Normal Medical Center CHEMISTRY Bili Total 0.3 0.2 - 1.3 03/25 Normal Medical Center CHEMISTRY Bili Direct 0.1 0.0 - 0.3 03/25 Normal Medical Center CHEMISTRY Magnesium 2.4 1.8 - 2.4 03/25 Normal Medical Center CHEMISTRY Potassium 4.1 3.5 - 5.1 03/25 Normal [place] [facility] CHEMISTRY Chloride Lvl 107.0 95 - 109 03/25 Normal Medical Center CHEMISTRY Sodium Lvl 140.0 135 - 145 03/25 Normal Medical Center CHEMISTRY Calcium Lvl 8.0 8.5 - 10.5 03/25 LOW Medical Center CHEMISTRY CO2 19.0 24 - 32 03/25 LOW [facility] Center CHEMISTRY Glucose Lvl 104.0 03/25 NA <sup>4</sup>I nterpretive Medical Data: Center Reference Ranges : 0 - 7 days : 41 - 90 mg/dL 7 days - 150 yrs : 70 - 99 mg/dL (fasting), based on the clinical recommendatio ns of the [place] [employer]. CHEMISTRY BUN 21.0 7 - 22 03/25 Normal [facility] CHEMISTRY Creatinine 1.7 0.5 - 1.4 03/25 HI [place] Lvl [facility] CHEMISTRY AGAP 18.1 10.0 - 03/25 Normal [place] 20.0 [facility] HEMATOLOGY Monocytes # 0.9 0.0 - 0.8 03/25 [facility] HEMATOLOGY Basophils # 0.1 0.0 - 0.2 03/25 Normal [facility] HEMATOLOGY Eosinophils 16.0 0.0 - 4.0 03/25 HI [facility] Center HEMATOLOGY Monocytes 9.1 2.0 - 12.0 03/25 Normal [facility] Center HEMATOLOGY Basophils 1.5 0.0 - 1.0 03/25 HI [facility] HEMATOLOGY Segs-Bands # 4.3 1.5 - 8.1 03/25 Normal [facility] HEMATOLOGY Lymphocytes 3.2 1.0 - 5.5 03/25 Normal [place] # /2010 Medical Center HEMATOLOGY Eosinophils 1.6 0.0 - 0.5 03/25 HI [place] # Medical Center HEMATOLOGY Lymphocytes 31.4 20.0 - 03/25 Normal [place] 40.0 Medical Center HEMATOLOGY Segs 42.0 45.0 - 03/25 LOW [place] 75.0 Medical Center HEMATOLOGY RDW 15.0 11.5 - 03/25 [facility] [place] 14.5 Medical Center HEMATOLOGY MCHC 33.9 32.0 - 03/25 Normal [place] 36.0 Medical Center HEMATOLOGY MCH 31.0 27.0 - 03/25 Normal [place] 31.0 Medical Center HEMATOLOGY MCV 91.4 81.0 - 03/25 Normal [place] 99.0 Medical Center HEMATOLOGY Hct 36.8 36.0 - 03/25 Normal [place] 48.0 Medical Center HEMATOLOGY Hgb 12.5 12.0 - 03/25 Normal [place] 16.0 Medical Center HEMATOLOGY MPV 10.0 7.4 - 10.4 03/25 Normal Medical Center HEMATOLOGY Platelet 157.0 133 - 450 03/25 Normal [facility] Center HEMATOLOGY RBC 4.03 4.20 - 03/25 LOW [place] 5.40 Medical Center HEMATOLOGY WBC 10.1 3.7 - 10.4 03/25 Normal Medical Center CHEMISTRY A/G Ratio 0.7 0.7 - 1.6 03/24 Normal [facility] Center CHEMISTRY Bili 0.2 0.0 - 1.0 03/24 Normal [place] [facility] CHEMISTRY Globulin 3.2 2.0 - 4.0 03/24 Normal [facility] Center CHEMISTRY Total 5.6 6.4 - 8.4 03/24 [facility] [place] [facility] CHEMISTRY Albumin Lvl 2.4 3.5 - 5.0 03/24 [facility] Medical Center CHEMISTRY Bili Direct 0.2 0.0 - 0.3 03/24 Normal [facility] Center CHEMISTRY AST 345.0 0 - 37 03/24 [facility] Medical Center CHEMISTRY Alk Phos 469.0 39 - 136 03/24 [facility] Center CHEMISTRY Bili Total 0.4 0.2 - 1.3 03/24 [facility] CHEMISTRY ALT 192.0 0 - 65 03/24 [facility] Center CHEMISTRY Magnesium 1.6 1.8 - 2.4 03/24 [facility] [place] l Medical Center CHEMISTRY AGAP 15.6 10.0 - 03/24 [facility] [place] 20.0 Medical Center CHEMISTRY CO2 21.0 24 - 32 03/24 [facility] Medical Center CHEMISTRY Potassium 3.6 3.5 - 5.1 03/24 [facility] l Medical Center CHEMISTRY Chloride Lvl 109.0 95 - 109 03/24 [facility] Medical Center CHEMISTRY Calcium Lvl 7.7 8.5 - 10.5 03/24 [facility] Medical Center CHEMISTRY Sodium Lvl 142.0 135 - 145 03/24 [facility] Medical Center CHEMISTRY BUN 23.0 7 - 22 03/24 [facility] CHEMISTRY Creatinine 1.7 0.5 - 1.4 03/24 [facility] Lvl [facility] CHEMISTRY Glucose Lvl 119.0 03/24 NA <sup>5</sup>I nterpretive Medical Data: Center Reference Ranges : 0 - 7 days : 41 - 90 mg/dL 7 days - 150 yrs : 70 - 99 mg/dL (fasting), based on the clinical recommendatio ns of the [place] [employer]. HEMATOLOGY PT 14.8 12.0 - 03/24 [facility] 14.7 [facility] HEMATOLOGY INR 1.16 0.85 - 03/24 Normal <sup>7</sup>I [facility] 1.17 nterpretive Medical Data: Center RECOMMENDED RANGES FOR PROTIME INR: 2.0-3.0 for most medical and surgical thromboemboli c states. 2.5-3.5 for artificial heart valves and recurrent embolism. INR SHOULD BE USED ONLY FOR PATIENTS ON STABLE ANTICOAGULANT THERAPY. HEMATOLOGY PTT 34.9 22.9 - 03/24 Normal <sup>8</sup>I [facility] 35.8 nterpretive Medical Data: Heparin Center Therapeutic Range: 57 - 92 Seconds HEMATOLOGY Basophils # 0.1 0.0 - 0.2 03/24 Normal [facility] HEMATOLOGY Segs-Bands # 4.1 1.5 - 8.1 03/24 Normal [facility] HEMATOLOGY Lymphocytes 2.8 1.0 - 5.5 03/24 Normal [facility] /2010 [facility] HEMATOLOGY Monocytes # 0.8 0.0 - 0.8 03/24 Normal [facility] HEMATOLOGY Eosinophils 1.8 0.0 - 0.5 03/24 [facility] # [facility] HEMATOLOGY Lymphocytes 28.5 20.0 - 03/24 [facility] [place] 40.0 [facility] HEMATOLOGY Monocytes 8.6 2.0 - 12.0 03/24 Normal [facility] HEMATOLOGY Eosinophils 19.0 0.0 - 4.0 03/24 [facility] HEMATOLOGY Basophils 1.3 0.0 - 1.0 03/24 [facility] HEMATOLOGY Segs 42.6 45.0 - 03/24 LOW [place] 75.0 [facility] HEMATOLOGY WBC 9.7 3.7 - 10.4 03/24 Normal [facility] Center HEMATOLOGY RBC 3.67 4.20 - 03/24 LOW [place] 5.40 /2010 Medical Center HEMATOLOGY MCHC 34.9 32.0 - 03/24 Normal [place] 36.0 Medical Center HEMATOLOGY RDW 15.1 11.5 - 03/24 [facility] [place] 14.5 /2010 Medical Center HEMATOLOGY Platelet 169.0 133 - 450 03/24 Normal [facility] Center HEMATOLOGY MCV 90.5 81.0 - 03/24 Normal [place] 99.0 Medical Center HEMATOLOGY MCH 31.6 27.0 - 03/24 [facility] [place] 31.0 /2010 [facility] Center HEMATOLOGY MPV 9.5 7.4 - 10.4 03/24 Normal [facility] HEMATOLOGY Hgb 11.6 12.0 - 03/24 [facility] [place] 16.0 [facility] Center HEMATOLOGY Hct 33.2 36.0 - 03/24 [facility] [place] 48.0 Medical Center IMMUNOLOGY Hep Bs Ag Negative >Negative 03/24 NA *NA* /2010 Medical (03/24/2011 05:08:00) ?? Center CHEMISTRY Amylase Lvl 36.0 25 - 115 03/23 Normal [facility] Center CHEMISTRY Lipase Lvl 242.0 73 - 393 03/23 Normal [facility] Center CHEMISTRY Glucose Lvl 97.0 03/23 NA <sup>6</sup>I nterpretive Medical Data: Center Reference Ranges : 0 - 7 days : 41 - 90 mg/dL 7 days - 150 yrs : 70 - 99 mg/dL (fasting), based on the clinical recommendatio ns of the [place] [employer]. CHEMISTRY BUN 22.0 7 - 22 03/23 Normal [facility] Center CHEMISTRY Creatinine 1.5 0.5 - 1.4 03/23 [facility] [place] Lvl Medical Center CHEMISTRY CO2 20.0 24 - 32 03/23 LOW Medical Center CHEMISTRY Sodium Lvl 144.0 135 - 145 03/23 Normal [facility] Center CHEMISTRY Calcium Lvl 7.8 8.5 - 10.5 03/23 LOW Medical Center CHEMISTRY Chloride Lvl 108.0 95 - 109 03/23 Normal [facility] Center CHEMISTRY Total 4.7 6.4 - 8.4 03/23 LOW [facility] Medical Center CHEMISTRY AGAP 19.2 10.0 - 03/23 Normal [place] 20.0 Medical Center CHEMISTRY Globulin 2.8 2.0 - 4.0 03/23 Normal Medical Center CHEMISTRY Albumin Lvl 1.9 3.5 - 5.0 03/23 LOW Medical Center CHEMISTRY ALT 194.0 0 - 65 03/23 [facility] CHEMISTRY A/G Ratio 0.7 0.7 - 1.6 03/23 Normal Medical Center CHEMISTRY B/C Ratio 15.0 6 - 25 03/23 Normal Medical Center CHEMISTRY Bili Total 1.0 0.2 - 1.3 03/23 Normal Medical Center CHEMISTRY AST 789.0 0 - 37 03/23 [facility] CHEMISTRY Alk Phos 289.0 39 - 136 03/23 HI [facility] CHEMISTRY Potassium 3.2 3.5 - 5.1 03/23 LOW [place] Lvl Medical Center HEMATOLOGY RDW 14.8 11.5 - 03/23 HI [place] 14.5 Medical Center HEMATOLOGY MPV 9.8 7.4 - 10.4 03/23 Normal Medical Center HEMATOLOGY Platelet 189.0 133 - 450 03/23 Normal Medical Center HEMATOLOGY MCH 31.0 27.0 - 03/23 Normal [place] 31.0 Medical Center HEMATOLOGY MCHC 34.1 32.0 - 03/23 Normal [place] 36.0 Medical Center HEMATOLOGY Hct 32.7 36.0 - 03/23 LOW [place] 48.0 Medical Center HEMATOLOGY MCV 91.0 81.0 - 03/23 Normal [place] 99.0 /2010 Medical Center HEMATOLOGY Hgb 11.2 12.0 - 03/23 LOW [place] 16.0 Medical Center HEMATOLOGY WBC 6.7 3.7 - 10.4 03/23 Normal Medical Center HEMATOLOGY RBC 3.6 4.20 - 03/23 LOW [place] 5.40 /2010 Medical Center HEMATOLOGY Large Plt Slight >None Seen 03/23 ABN [place] *ABN* /2010 Medical (03/23/2011 05:24:00) ?? Center HEMATOLOGY Lymphocytes 2.1 1.0 - 5.5 03/23 Normal [place] # /2010 Medical Center HEMATOLOGY Segs-Bands # 2.7 1.5 - 8.1 03/23 Normal [facility] HEMATOLOGY Monocytes # 0.9 0.0 - 0.8 03/23 [facility] HEMATOLOGY Plt Morph Normal 03/23 Normal [facility] (03/23/2011 05:24:00) ?? [facility] HEMATOLOGY Eosinophils 15.0 0.0 - 4.0 03/23 [facility] HEMATOLOGY Atypical 0.0 <<=0.0 03/23 Normal [facility] Lymphs [facility] HEMATOLOGY Bands 1.0 0.0 - 11.0 03/23 Normal [facility] HEMATOLOGY Basophils 1.0 0.0 - 1.0 03/23 Normal [facility] HEMATOLOGY Eosinophils 1.0 0.0 - 0.5 03/23 HI [facility] # [facility] Center HEMATOLOGY Lymphocytes 31.0 20.0 - 03/23 Normal [place] 40.0 [facility] HEMATOLOGY Monocytes 13.0 2.0 - 12.0 03/23 [facility] HEMATOLOGY Segs 39.0 45.0 - 03/23 LOW [place] 75.0 [facility] HEMATOLOGY Basophils # 0.1 0.0 - 0.2 03/23 Normal [facility] IMMUNOLOGY Prealbumin 10.0 18.0 - 03/23 LOW [facility] 45.0 [facility] URINALYSIS UA ?? 0.1 - 1.0 03/22 NA [facility] Urobilinogen [facility] URINALYSIS UA Hyal Cast 3.0 0 - 2 03/22 [facility] Center URINALYSIS UA Amorph Occasional /HPF >None Seen 03/22 [facility] *NA* Medical (03/22/2011 17:20:00) ?? Center URINALYSIS UA Mucus Few /LPF >None Seen 03/22 [facility] *NA* Medical (03/22/2011 17:20:00) ?? Center URINALYSIS UA Sq Epi Few /LPF >Few 03/22 [facility] *NA* Medical (03/22/2011 17:20:00) ?? Center URINALYSIS UA RBC <1.0 0 - 2 03/22 Normal [facility] Center URINALYSIS UA Nitrite Negative >Negative 03/22 Normal [facility] (03/22/2011 17:20:00) ?? Medical Center URINALYSIS UA Leuk Est Negative >Negative 03/22 Normal [facility] (03/22/2011 17:20:00) ?? Medical Center URINALYSIS UA Protein 200 mg/dL >[facility]:20[facility] ?? Center URINALYSIS UA Ketones 10 mg/dL >Negative [facility]:20[facility] ?? Center URINALYSIS UA Bili Negative >Negative 03[facility]/22/2011 17:20:00[facility] ?? Center URINALYSIS UA Blood Moderate >Negative 03/22 [facility] Medical (03/22/2011 17:20:00) ?? Center URINALYSIS UA Glucose Negative mg/dL >Negative 03/22 [facility]/22/2011 17:20:00[facility] ?? Center URINALYSIS UA Spec Grav 1.016 <<=1.030 03/22 Normal Medical Center URINALYSIS UA pH 5.5 5.0 - 8.0 03/22 Normal Medical Center URINALYSIS UA Color Yellow >Yellow 03[facility] 17:20:00[facility] ?? Center URINALYSIS UA Turbidity Slight >Clear 03/[facility] (03/22/2011 17:20:00) ?? Center CHEMISTRY Bili 0.2 0.0 - 1.0 03/22 Normal [facility] Medical Center CHEMISTRY Bili Direct 0.1 0.0 - 0.3 03/22 Normal Medical Center IMMUNOLOGY Hep A IgM Negative >Negative 03/22 [facility]/22[facility]2011 09:40:00[facility] ?? Center IMMUNOLOGY Hep B Core Negative >Negative 03/22 NA [facility] IgM *NA* Medical (03/22/2011 09:40:00) ?? Center IMMUNOLOGY Hep C Ab Negative >Negative 03/22 [facility] (03/22/2011 09:40:00) ?? Center IMMUNOLOGY Hep Bs Ag See Note 9 >Negative 03/22 Normal <sup>9</sup>R [facility] (03/22/2011 09:40:00) ?? esult Medical Comment: [facility] Center Talked to Nyasia Mcdaniels Nurse will recollect in the morning 03/23/2011 16:39 RG CHEMISTRY T4 Free 1.67 0.76 - 03/22 [facility] 1.46 Medical Center CHEMISTRY TSH 0.044 0.360 - 03/22 LOW [facility] 3.740 /2010 Medical Center BEDSIDE Comment1 Sliding 03/15 NA [facility] GLUCOSE Scale Medical TESTING Center BEDSIDE Gluc POC 152.0 65 - 110 03/15 HI <sup>1</sup>I [facility] GLUCOSE Lifscn nterpretive Medical TESTING Data: Center Upper Reportable Limit: 200 mg/dL. BEDSIDE Comment1 Notify 03/15 NA [facility] GLUCOSE RN/MD Medical TESTING Center BEDSIDE Gluc POC 116.0 65 - 110 03/15 HI <sup>2</sup>I [facility] GLUCOSE Lifscn nterpretive Medical TESTING Data: Center Upper Reportable Limit: 200 mg/dL. CHEMISTRY AGAP 18.5 10.0 - 03/15 Normal [place] 20.0 [facility] Center CHEMISTRY Potassium 3.5 3.5 - 5.1 03/15 Normal [facility] Lvl [facility] Center CHEMISTRY CO2 21.0 24 - 32 03/15 LOW [facility] Center CHEMISTRY Sodium Lvl 147.0 135 - 145 03/15 [facility] Center CHEMISTRY Creatinine 1.4 0.5 - 1.4 03/15 Normal [facility] Lvl Medical Center CHEMISTRY Chloride Lvl 111.0 95 - 109 03/15 [facility] [place] [facility] CHEMISTRY Calcium Lvl 8.1 8.5 - 10.5 03/15 LOW [facility] Center CHEMISTRY Glucose Lvl 97.0 03/15 NA <sup>12</sup> Interpretive Medical Data: Center Reference Ranges : 0 - 7 days : 41 - 90 mg/dL 7 days - 150 yrs : 70 - 99 mg/dL (fasting), based on the clinical recommendatio ns of the [place] [employer]. CHEMISTRY BUN 21.0 7 - 22 15 Normal /2010 [facility] Center CHEMISTRY Magnesium 1.7 1.8 - 2.4 10 LOW [place] Lvl /2010 Medical Center HEMATOLOGY Lymphocytes 16.7 20.0 - 10 LOW [place] 40.0 /2010 Medical Center HEMATOLOGY Monocytes 12.4 2.0 - 12.0 10 HI Medical Center HEMATOLOGY Segs 63.3 45.0 - 10 Normal [place] 75.0 /2010 Medical Center HEMATOLOGY Eosinophils 0.6 0.0 - 0.5 10 HI [place] # /2010 Medical Center HEMATOLOGY Monocytes # 1.1 0.0 - 0.8 03/15 [facility] /2010 Medical Center HEMATOLOGY Basophils # 0.1 0.0 - 0.2 03/15 Normal Medical Center HEMATOLOGY Lymphocytes 1.5 1.0 - 5.5 03/15 Normal [place] # /2010 Medical Center HEMATOLOGY Segs-Bands # 5.8 1.5 - 8.1 03/15 Normal Medical Center HEMATOLOGY Basophils 1.3 0.0 - 1.0 03/15 HI /2010 Medical Center HEMATOLOGY Eosinophils 6.3 0.0 - 4.0 03/15 [facility] /2010 Medical Center HEMATOLOGY MCH 31.6 27.0 - 03/15 [facility] [place] 31.0 /2010 Medical Center HEMATOLOGY RBC 3.56 4.20 - 10 [facility] [place] 5.40 /2010 Medical Center HEMATOLOGY MCV 90.7 81.0 - 03/15 [facility] [place] 99.0 /2010 Medical Center HEMATOLOGY Hct 32.3 36.0 - 03/15 [facility] [place] 48.0 /2010 Medical Center HEMATOLOGY Hgb 11.3 12.0 - 10 [facility] [place] 16.0 /2010 Medical Center HEMATOLOGY WBC 9.1 3.7 - 10.4 03/15 Normal Medical Center HEMATOLOGY MPV 10.1 7.4 - 10.4 10 Normal Medical Center HEMATOLOGY Platelet 154.0 133 - 450 03/15 Normal Medical Center HEMATOLOGY RDW 14.7 11.5 - 10 [facility] [place] 14.5 /2010 Medical Center HEMATOLOGY MCHC 34.8 32.0 - 10 [facility] [place] 36.0 /2010 Medical Center BEDSIDE Comment1 Notify 03/15 [facility] GLUCOSE RN/MD /2010 Medical TESTING Center BEDSIDE Gluc POC 126.0 65 - 110 03/15 HI <sup>3</sup>I [facility] GLUCOSE Lifscn /2010 nterpretive Medical TESTING Data: Center Upper Reportable Limit: 200 mg/dL. BEDSIDE Comment2 Sliding 03/14 NA [facility] GLUCOSE Scale /2010 Medical TESTING Center BEDSIDE Comment2 Sliding 03/14 NA [facility] GLUCOSE Scale /2010 Medical TESTING Center CHEMISTRY T4 Free 2.0 0.76 - 03/14 HI [facility] 1.46 /2010 Medical Center CHEMISTRY TSH 0.042 0.360 - 03/14 LOW [facility] 3.740 /2010 [facility] Center CHEMISTRY Total CK 31.0 12 - 191 03/14 Normal [facility] CHEMISTRY Lactic Acid 1.6 0.5 - 2.2 03/14 Normal [facility] Lvl /2010 [facility] HEMATOLOGY INR 1.15 0.85 - 03/14 Normal <sup>53</sup> [facility] 1.17 Interpretive Medical Data: Center RECOMMENDED RANGES FOR PROTIME INR: 2.0-3.0 for most medical and surgical thromboemboli c states. 2.5-3.5 for artificial heart valves and recurrent embolism. INR SHOULD BE USED ONLY FOR PATIENTS ON STABLE ANTICOAGULANT THERAPY. HEMATOLOGY PT 14.7 12.0 - 03/14 Normal [facility] 14.7 /2010 [facility] Center HEMATOLOGY PTT 30.3 22.9 - 03/14 Normal <sup>54</sup> [facility] 35.8 /2010 Interpretive Medical Data: Heparin Center Therapeutic Range: 57 - 92 Seconds CHEMISTRY Lipase Lvl 49.0 73 - 393 03/14 LOW <sup>28</sup> Result Medical Comment: Center Collection date/time has been modified to: 01:50:00. Previous collection date/time: 01:50:00. CHEMISTRY Amylase Lvl 23.0 25 - 115 03/14 LOW <sup>27</sup> Result Medical Comment: Center Collection date/time has been modified to: 01:50:00. Previous collection date/time: 01:50:00. CHEMISTRY Phosphorus 4.3 2.5 - 4.5 03/14 Normal <sup>21</sup> Result Medical Comment: Center Collection date/time has been modified to: 01:50:00. Previous collection date/time: 01:50:00. CHEMISTRY A/G Ratio 0.8 0.7 - 1.6 03/14 Normal <sup>19</sup> Result Medical Comment: Center Collection date/time has been modified to: 01:50:00. Previous collection date/time: 01:50:00. CHEMISTRY Globulin 3.4 2.0 - 4.0 03/14 Normal <sup>18</sup> Result Medical Comment: Center Collection date/time has been modified to: 01:50:00. Previous collection date/time: 01:50:00. CHEMISTRY ALT 33.0 0 - 65 03/14 Normal <sup>23</sup> Result Medical Comment: Center Collection date/time has been modified to: 01:50:00. Previous collection date/time: 01:50:00. CHEMISTRY AST 27.0 0 - 37 03/14 Normal <sup>24</sup> Result Medical Comment: Center Collection date/time has been modified to: 01:50:00. Previous collection date/time: 01:50:00. CHEMISTRY Bili Total 0.4 0.2 - 1.3 03/14 Normal <sup>26</sup> Result Medical Comment: Center Collection date/time has been modified to: 01:50:00. Previous collection date/time: 01:50:00. CHEMISTRY Total 6.2 6.4 - 8.4 03/14 LOW <sup>16</sup> Result Medical Comment: Center Collection date/time has been modified to: 01:50:00. Previous collection date/time: 01:50:00. CHEMISTRY Alk Phos 109.0 39 - 136 03/14 Normal <sup>25</sup> Result Medical Comment: Center Collection date/time has been modified to: 01:50:00. Previous collection date/time: 01:50:00. CHEMISTRY Albumin Lvl 2.8 3.5 - 5.0 03/14 LOW <sup>17</sup> Result Medical Comment: Center Collection date/time has been modified to: 01:50:00. Previous collection date/time: 01:50:00. CHEMISTRY B/C Ratio 14.0 6 - 25 03/14 Normal <sup>11</sup> Result Medical Comment: Center Collection date/time has been modified to: 01:50:00. Previous collection date/time: 01:50:00. CHEMISTRY Calcium Lvl 8.4 8.5 - 10.5 03/14 LOW <sup>20</sup> Result Medical Comment: Center Collection date/time has been modified to: 01:50:00. Previous collection date/time: 01:50:00. CHEMISTRY AGAP 21.8 10.0 - 03/14 HI <sup>8</sup>R [place] 20.0 esult Medical Comment: Center Collection date/time has been modified to: 01:50:00. Previous collection date/time: 01:50:00. CHEMISTRY CO2 19.0 24 - 32 03/14 LOW <sup>7</sup>R esult Medical Comment: Center Collection date/time has been modified to: 01:50:00. Previous collection date/time: 01:50:00. CHEMISTRY Chloride Lvl 105.0 95 - 109 03/14 Normal <sup>6</sup>R esult Medical Comment: Center Collection date/time has been modified to: 01:50:00. Previous collection date/time: 01:50:00. CHEMISTRY Sodium Lvl 142.0 135 - 145 03/14 Normal <sup>4</sup>R esult Medical Comment: Center Collection date/time has been modified to: 01:50:00. Previous collection date/time: 01:50:00. CHEMISTRY Potassium 3.8 3.5 - 5.1 03/14 Normal <sup>5</sup>R [facility] esult Medical Comment: Center Collection date/time has been modified to: 01:50:00. Previous collection date/time: 01:50:00. CHEMISTRY BUN 20.0 7 - 22 03/14 Normal <sup>10</sup> Result Medical Comment: Center Collection date/time has been modified to: 01:50:00. Previous collection date/time: 01:50:00. CHEMISTRY Creatinine 1.4 0.5 - 1.4 03/14 Normal <sup>9</sup>R [facility] esult Medical Comment: Center Collection date/time has been modified to: 01:50:00. Previous collection date/time: 01:50:00. CHEMISTRY Glucose Lvl 91.0 03/14 NA <sup>13</sup> Result Medical Comment: Center Collection date/time has been modified to: 01:50:00. Previous collection date/time: 01:50:00.<br/ ><sup>14</sup >Interpretive Data: Reference Ranges : 0 - 7 days : 41 - 90 mg/dL 7 days - 150 yrs : 70 - 99 mg/dL (fasting), based on the clinical recommendatio ns of the [place] [employer].< br/><sup>15</ sup>Interpret kimberly Data: Reference Ranges : 0 - 7 days : 41 - 90 mg/dL 7 days - 150 yrs : 70 - 99 mg/dL (fasting), based on the clinical recommendatio ns of the [place] [employer]. CHEMISTRY Magnesium 1.2 1.8 - 2.4 03/14 LOW <sup>22</sup> [facility] Result Medical Comment: Center Collection date/time has been modified to: 01:50:00. Previous collection date/time: 01:50:00. HEMATOLOGY Monocytes 10.3 2.0 - 12.0 03/14 Normal <sup>41</sup> Result Medical Comment: Center Collection date/time has been modified to: 01:50:00. Previous collection date/time: 01:50:00. HEMATOLOGY Eosinophils 6.2 0.0 - 4.0 03/14 HI <sup>42</sup> Result Medical Comment: Center Collection date/time has been modified to: 01:50:00. Previous collection date/time: 01:50:00. HEMATOLOGY Segs 61.3 45.0 - 03/14 Normal <sup>39</sup> [place] 75.0 Result Medical Comment: Center Collection date/time has been modified to: 01:50:00. Previous collection date/time: 01:50:00. HEMATOLOGY Lymphocytes 22.2 20.0 - 03/14 Normal <sup>40</sup> [facility] 40.0 Result Medical Comment: Center Collection date/time has been modified to: 01:50:00. Previous collection date/time: 01:50:00. HEMATOLOGY Basophils 0.0 0.0 - 1.0 03/14 Normal <sup>43</sup> Result Medical Comment: Center Collection date/time has been modified to: 01:50:00. Previous collection date/time: 01:50:00. HEMATOLOGY Monocytes # 1.2 0.0 - 0.8 03/14 HI <sup>46</sup> Result Medical Comment: Center Collection date/time has been modified to: 01:50:00. Previous collection date/time: 01:50:00. HEMATOLOGY Segs-Bands # 7.3 1.5 - 8.1 03/14 Normal <sup>44</sup> Result Medical Comment: Center Collection date/time has been modified to: 01:50:00. Previous collection date/time: 01:50:00. HEMATOLOGY Basophils # 0.0 0.0 - 0.2 03/14 Normal <sup>48</sup> /2010 Result Medical Comment: Center Collection date/time has been modified to: 01:50:00. Previous collection date/time: 01:50:00. HEMATOLOGY Eosinophils 0.7 0.0 - 0.5 03/14 HI <sup>47</sup> [facility] # /2010 Result Medical Comment: Center Collection date/time has been modified to: 01:50:00. Previous collection date/time: 01:50:00. HEMATOLOGY Lymphocytes 2.6 1.0 - 5.5 03/14 Normal <sup>45</sup> [facility] # /2010 Result Medical Comment: Center Collection date/time has been modified to: 01:50:00. Previous collection date/time: 01:50:00. HEMATOLOGY Large Plt Slight 52 >None Seen 03/14 ABN <sup>52</sup> [facility] *ABN* Result Medical (03/14/2011 01:50:00) ?? Comment: Center Collection date/time has been modified to: 01:50:00. Previous collection date/time: 01:50:00. HEMATOLOGY Dian Cell Slight 51 >None Seen 03/14 ABN <sup>51</sup> [facility] *ABN* /2010 Result Medical (03/14/2011 01:50:00) ?? Comment: Center Collection date/time has been modified to: 01:50:00. Previous collection date/time: 01:50:00. HEMATOLOGY Anisocyte 1+ 49 >None Seen 03/14 ABN <sup>49</sup> [facility] *ABN* /2010 Result Medical (03/14/2011 01:50:00) ?? Comment: Center Collection date/time has been modified to: 01:50:00. Previous collection date/time: 01:50:00. HEMATOLOGY Polychrom Slight 50 >None Seen 03/14 Normal <sup>50</sup> [facility] (03/14/2011 01:50:00) ?? Result Medical Comment: Center Collection date/time has been modified to: 01:50:00. Previous collection date/time: 01:50:00. HEMATOLOGY Hgb 13.3 12.0 - 10 Normal <sup>31</sup> [facility] 16.0 /2010 Result Medical Comment: Center Collection date/time has been modified to: 01:50:00. Previous collection date/time: 01:50:00. HEMATOLOGY WBC 11.8 3.7 - 10.4 03/14 [place] <sup>29</sup> Result Medical Comment: Center Collection date/time has been modified to: 01:50:00. Previous collection date/time: 01:50:00. HEMATOLOGY RBC 4.18 4.20 - 03/14 LOW <sup>30</sup> [facility] 5.40 /2010 Result Medical Comment: Center Collection date/time has been modified to: 01:50:00. Previous collection date/time: 01:50:00. HEMATOLOGY MCV 90.6 81.0 - 03/14 Normal <sup>33</sup> [facility] 99.0 /2010 Result Medical Comment: Center Collection date/time has been modified to: 01:50:00. Previous collection date/time: 01:50:00. HEMATOLOGY MCH 31.8 27.0 - 03/14 HI <sup>34</sup> [place] 31.0 /2010 Result Medical Comment: Center Collection date/time has been modified to: 01:50:00. Previous collection date/time: 01:50:00. HEMATOLOGY Hct 37.9 36.0 - 03/14 Normal <sup>32</sup> [facility] 48.0 /2010 Result Medical Comment: Center Collection date/time has been modified to: 01:50:00. Previous collection date/time: 01:50:00. HEMATOLOGY MPV 10.0 7.4 - 10.4 03/14 Normal <sup>38</sup> [place] Result Medical Comment: Center Collection date/time has been modified to: 01:50:00. Previous collection date/time: 01:50:00. HEMATOLOGY RDW 13.5 11.5 - 03/14 Normal <sup>36</sup> [facility] 14.5 Result Medical Comment: Center Collection date/time has been modified to: 01:50:00. Previous collection date/time: 01:50:00. HEMATOLOGY Platelet 199.0 133 - 450 03/14 Normal <sup>37</sup> Result Medical Comment: Center Collection date/time has been modified to: 01:50:00. Previous collection date/time: 01:50:00. HEMATOLOGY MCHC 35.1 32.0 - 03/14 Normal <sup>35</sup> [facility] 36.0 Result Medical Comment: Center Collection date/time has been modified to: 01:50:00. Previous collection date/time: 01:50:00. CHEMISTRY AST 27.0 0 - 37 03/13 Normal [facility] CHEMISTRY Globulin 3.2 2.0 - 4.0 03/13 Normal [facility] CHEMISTRY Albumin Lvl 2.9 3.5 - 5.0 03/13 LOW [facility] CHEMISTRY ALT 32.0 0 - 65 03/13 Normal [facility] CHEMISTRY Total 6.1 6.4 - 8.4 03/13 LOW [facility] Protein [facility] CHEMISTRY A/G Ratio 0.9 0.7 - 1.6 03/13 Normal [facility] CHEMISTRY Bili 0.3 0.0 - 1.0 03/13 Normal [facility] Indirect [facility] CHEMISTRY Bili Total 0.4 0.2 - 1.3 03/13 Normal [facility] CHEMISTRY Bili Direct 0.1 0.0 - 0.3 03/13 Normal [facility] CHEMISTRY Alk Phos 103.0 39 - 136 03/13 Normal [facility] BEDSIDE Gluc POC 197.0 65 - 110 03/07 HI <sup>1</sup>I [facility] GLUCOSE [facility] nterpretive Medical TESTING Data: Center Upper Reportable Limit: 200 mg/dL. BEDSIDE Comment1 Notify 10/07 NA [facility] GLUCOSE RN/MD Medical TESTING Center BEDSIDE Comment2 Sliding 03/07 NA [facility] GLUCOSE Scale Medical TESTING Center BEDSIDE Gluc POC 112.0 65 - 110 03/07 HI <sup>2</sup>I [facility] GLUCOSE [facility] nterpretive Medical TESTING Data: Center Upper Reportable Limit: 200 mg/dL. BEDSIDE Comment1 Notify 03/07 NA [facility] GLUCOSE RN/MD Medical TESTING Center BEDSIDE Comment2 Sliding 03/07 NA [facility] GLUCOSE Scale Medical TESTING Center BEDSIDE Comment1 Notify 03/07 NA [facility] GLUCOSE RN/MD /2010 Medical TESTING Center BEDSIDE Gluc POC 180.0 65 - 110 03/07 HI <sup>3</sup>I [facility] GLUCOSE [facility] nterpretive Medical TESTING Data: Center Upper Reportable Limit: 200 mg/dL. BEDSIDE Comment2 Sliding 03/06 NA [facility] GLUCOSE Medical TESTING Center CHEMISTRY eGFR >60.0 03/05 NA <sup>4</sup>R esult Medical Comment: Center Expected eGFR for >20 yr. age group: >=60 ml/min/1.73 sq m The eGFR calculation is not valid in or for persons < 18 years of age. From [employer] (NKDEP) CHEMISTRY Chloride Lvl 107.0 95 - 109 03/05 Normal Medical Center CHEMISTRY Sodium Lvl 144.0 135 - 145 03/05 Normal [facility] Center CHEMISTRY Potassium 3.8 3.5 - 5.1 03/05 Normal [facility] Medical Center CHEMISTRY Calcium Lvl 8.4 8.5 - 10.5 03/05 LOW Medical Center CHEMISTRY AGAP 15.8 10.0 - 03/05 Normal 20.0 Medical Center CHEMISTRY CO2 25.0 24 - 32 03/05 Normal Medical Center CHEMISTRY BUN 16.0 7 - 22 03/05 Normal Medical Center CHEMISTRY Creatinine 0.9 0.5 - 1.4 03/05 Normal [facility] Medical Center CHEMISTRY Glucose Lvl 77.0 03/05 NA <sup>5</sup>I nterpretive Medical Data: Center Reference Ranges : 0 - 7 days : 41 - 90 mg/dL 7 days - 150 yrs : 70 - 99 mg/dL (fasting), based on the clinical recommendatio ns of the [place] [employer]. HEMATOLOGY Segs 45.6 45.0 - 10/05 Normal [place] 75.0 /2010 [facility] Center HEMATOLOGY Monocytes 10.4 2.0 - 12.0 10/ Normal [place] /2010 [facility] Center HEMATOLOGY Eosinophils 3.5 0.0 - 4.0 10/05 Normal /2010 [facility] Center HEMATOLOGY Lymphocytes 38.5 20.0 - 10/05 Normal [place] 40.0 /2010 Medical Center HEMATOLOGY Eosinophils 0.4 0.0 - 0.5 10/05 Normal [place] # /2010 Medical [place] HEMATOLOGY Basophils # 0.2 0.0 - 0.2 10/ Normal /2010 [facility] HEMATOLOGY Basophils 2.0 0.0 - 1.0 10/05 [place] /2010 [facility] HEMATOLOGY Segs-Bands # 5.8 1.5 - 8.1 10/ Normal /2010 [facility] HEMATOLOGY Lymphocytes 4.9 1.0 - 5.5 10/05 Normal [place] # /2010 [facility] HEMATOLOGY Monocytes # 1.3 0.0 - 0.8 10/ [place] /2010 [facility] HEMATOLOGY Hgb 9.9 12.0 - 10/05 LOW [place] 16.0 /2010 [facility] Center HEMATOLOGY MCV 92.6 81.0 - 10/05 Normal [place] 99.0 /2010 [facility] HEMATOLOGY RBC 3.08 4.20 - 10/05 LOW [place] 5.40 /2010 Medical Center HEMATOLOGY WBC 12.7 3.7 - 10.4 10/ [facility] HEMATOLOGY MCH 32.0 27.0 - 10/05 [facility] [place] 31.0 /2010 Medical Center HEMATOLOGY Hct 28.5 36.0 - 10/05 LOW [place] 48.0 /2010 Medical [place] HEMATOLOGY MCHC 34.6 32.0 - 10/05 Normal [place] 36.0 /2010 Medical Center HEMATOLOGY Platelet 221.0 133 - 450 10/ Normal /2010 [facility] HEMATOLOGY RDW 16.5 11.5 - 10/05 [facility] [place] 14.5 /2010 Medical [place] HEMATOLOGY MPV 9.1 7.4 - 10.4 10/ Normal /2010 [facility] HEMATOLOGY Platelet 270.0 133 - 450 10/03 Normal Medical Center HEMATOLOGY RDW 16.4 11.5 - 03/03 [facility] [place] 14.5 Medical Center HEMATOLOGY MCHC 33.6 32.0 - 03/03 Normal [place] 36.0 Medical Center HEMATOLOGY MCH 31.8 27.0 - 03/03 [facility] [place] 31.0 Medical Center HEMATOLOGY WBC 12.4 3.7 - 10.4 03/03 [place] [facility] HEMATOLOGY MPV 9.4 7.4 - 10.4 03/03 Normal Medical Center HEMATOLOGY MCV 94.6 81.0 - 10 [facility] 99.0 Medical Center HEMATOLOGY Hct 30.8 36.0 - 03/03 LOW [place] 48.0 Medical [place] HEMATOLOGY Hgb 10.4 12.0 - 03/03 [facility] [place] 16.0 Medical [place] HEMATOLOGY RBC 3.25 4.20 - 03/03 [facility] [place] 5.40 Medical Center HEMATOLOGY RDW 16.0 11.5 - 03/02 [facility] [place] 14. Medical Center HEMATOLOGY MPV 9.1 7.4 - 10.4 03/02 Normal Medical Center HEMATOLOGY Platelet 283.0 133 - 450 03/02 Normal Medical Center HEMATOLOGY RBC 3.23 4.20 - 03/02 LOW [place] 5.40 Medical Center HEMATOLOGY MCV 94.5 81.0 - 03/02 [facility] 99.0 Medical Center HEMATOLOGY Hct 30.5 36.0 - 03/02 [facility] 48.0 Medical Center HEMATOLOGY Hgb 10.3 12.0 - 03/02 [facility] [place] 16.0 Medical Center HEMATOLOGY MCHC 33.6 32.0 - 03/02 [facility] [place] 36.0 Medical Center HEMATOLOGY WBC 12.7 3.7 - 10.4 03/02 [facility] Medical Center HEMATOLOGY MCH 31.8 27.0 - 03/02 [facility] [place] 31.0 [facility] Center URINALYSIS UA ?? 0.1 - 1.0 03/01 [facility] Urobilinogen [facility] URINALYSIS UA Turbidity Clear >Clear 03/01 [facility] (03/01/2011 15:38:00) ?? [facility] Center URINALYSIS UA Spec Grav 1.009 <<=1.030 03/01 [facility] /2011 Medical Center URINALYSIS UA Color Yellow >Yellow 03/01 [facility] 15:38:00[facility] ?? Center URINALYSIS UA pH 5.5 5.0 - 8.0 03/01 Normal Medical Center URINALYSIS UA Ketones Negative mg/dL >Negative 03/01 [facility]2011 15:38:00[facility] ?? Center URINALYSIS UA Glucose Negative mg/dL >Negative 03/01 [facility] (03/01/2011 15:38:00) ?? Center URINALYSIS UA Bili Negative >Negative 03/01 NA [facility] Medical (03/01/2011 15:38:00) ?? Center URINALYSIS UA Blood Negative >Negative 03/01 Normal [facility] (03/01/2011 15:38:00) ?? Medical Center URINALYSIS UA WBC <1.0 0 - 5 03/01 Normal Medical Center URINALYSIS UA Nitrite Negative >Negative 03/01 Normal [facility] (03/01/2011 15:38:00) ? Medical Center URINALYSIS UA Leuk Est Negative >Negative 03/01 Normal [facility] (03/01/2011 15:38:00) ? Medical Center URINALYSIS UA Mucus Few /LPF >None Seen 03/01 NA [facility] Medical (03/01/2011 15:38:00) ?? Center URINALYSIS UA Sq Epi Moderate /LPF >Few 03/01 ABN [facility] Medical (03/01/2011 15:38:00) ?? Center URINALYSIS UA Hyal Cast 1.0 0 - 2 03/01 Normal Medical Center URINALYSIS UA Protein 10 mg/dL >Negative 03/01 [facility] (03/01/2011 15:38:00) ?? Center Microbiolog Culture: 03/01 [facility] y Medical Center HEMATOLOGY Lymphocytes 5.7 1.0 - 5.5 02/28 HI [place] # /2010 Medical Center HEMATOLOGY Segs-Bands # 4.8 1.5 - 8.1 09/30 Normal Medical Center HEMATOLOGY Basophils 1.0 0.0 - 1.0 02/28 Normal Medical Center HEMATOLOGY Monocytes 8.9 2.0 - 12.0 02/28 Normal Medical Center HEMATOLOGY Eosinophils 2.8 0.0 - 4.0 02/28 Normal Medical Center HEMATOLOGY Lymphocytes 47.3 20.0 - 02/28 HI [place] 40.0 Medical Center HEMATOLOGY Segs 40.0 45.0 - 02/28 LOW [place] 75.0 Medical Center HEMATOLOGY Basophils # 0.1 0.0 - 0.2 02/28 Normal Medical Center HEMATOLOGY Monocytes # 1.1 0.0 - 0.8 02/28 [place] Medical Center HEMATOLOGY Eosinophils 0.3 0.0 - 0.5 02/28 Normal Medical Center CHEMISTRY Globulin 2.8 2.0 - 4.0 02/27 Normal [facility] CHEMISTRY B/C Ratio 14.0 6 - 25 02/27 Normal [facility] Center CHEMISTRY AGAP 13.8 10.0 - 02/27 Normal [place] 20.0 Medical Center CHEMISTRY A/G Ratio 0.8 0.7 - 1.6 02/27 Normal [facility] CHEMISTRY Total 5.0 6.4 - 8.4 02/27 LOW [facility] CHEMISTRY Calcium Lvl 8.4 8.5 - 10.5 02/27 LOW [facility] CHEMISTRY ALT 24.0 0 - 65 02/27 Normal [facility] CHEMISTRY Albumin Lvl 2.2 3.5 - 5.0 02/27 LOW [facility] CHEMISTRY Bili Total 0.3 0.2 - 1.3 02/27 Normal [facility] Center CHEMISTRY AST 21.0 0 - 37 02/27 Normal Medical Center CHEMISTRY Alk Phos 98.0 39 - 136 02/27 Normal [facility] Center CHEMISTRY CO2 28.0 24 - 32 02/27 Normal Medical Center CHEMISTRY BUN 10.0 7 - 22 02/27 Normal [facility] Center CHEMISTRY Potassium 3.8 3.5 - 5.1 02/27 Normal [place] Lvl Medical Center CHEMISTRY Sodium Lvl 143.0 135 - 145 02/27 Normal [facility] CHEMISTRY Creatinine 0.7 0.5 - 1.4 02/27 Normal [facility] Lvl [facility] CHEMISTRY Glucose Lvl 119.0 02/27 NA <sup>6</sup>I nterpretive Medical Data: Center Reference Ranges : 0 - 7 days : 41 - 90 mg/dL 7 days - 150 yrs : 70 - 99 mg/dL (fasting), based on the clinical recommendatio ns of the [place] [employer]. CHEMISTRY Chloride Lvl 105.0 95 - 109 02/27 Normal [facility] HEMATOLOGY Monocytes # 0.9 0.0 - 0.8 02/27 HI [facility] HEMATOLOGY Eosinophils 0.3 0.0 - 0.5 02/27 Normal [facility] /2010 [facility] HEMATOLOGY Lymphocytes 3.3 1.0 - 5.5 02/27 Normal [facility] /2010 [facility] HEMATOLOGY Basophils # 0.1 0.0 - 0.2 02/27 Normal [facility] HEMATOLOGY Basophils 1.2 0.0 - 1.0 02/27 HI [facility] HEMATOLOGY Segs-Bands # 6.0 1.5 - 8.1 02/27 Normal [facility] HEMATOLOGY Monocytes 8.3 2.0 - 12.0 02/27 Normal [facility] HEMATOLOGY Eosinophils 3.1 0.0 - 4.0 02/27 Normal [facility] HEMATOLOGY Segs 56.6 45.0 - 02/27 Normal [facility] 75.0 [facility] HEMATOLOGY Lymphocytes 30.8 20.0 - 02/27 Normal [facility] 40.0 [facility] Center BEDSIDE Gluc POC 207.0 65 - 110 02/26 [place] <sup>1</sup>I [facility] GLUCOSE [facility] nterpretive Medical TESTING Data: Center Upper Reportable Limit: 200 mg/dL. BEDSIDE Comment1 Notify 02/26 NA [facility] GLUCOSE RN/MD /2010 Medical TESTING Center BEDSIDE Comment1 Notify 02/26 NA [facility] GLUCOSE RN/MD /2010 Medical TESTING Center BEDSIDE Gluc POC 155.0 65 - 110 02/26 [place] <sup>2</sup>I [facility]pretive [facility] TESTING Data: Center Upper Reportable Limit: 200 mg/dL. BEDSIDE Gluc POC 140.0 65 - 110 02/26 [place] <sup>3</sup>I [facility] GLUCOSE [facility] nterpretive Medical TESTING Data: Center Upper Reportable Limit: 200 mg/dL. CHEMISTRY AGAP 15.6 10.0 - 02/26 Normal [facility] 20.0 Medical Center CHEMISTRY CO2 25.0 24 - 32 02/26 Normal Medical Center CHEMISTRY Calcium Lvl 7.9 8.5 - 10.5 02/26 LOW Medical Center CHEMISTRY Sodium Lvl 142.0 135 - 145 02/26 Normal Medical Center CHEMISTRY Potassium 3.6 3.5 - 5.1 02/26 Normal [facility] Medical Center CHEMISTRY Creatinine 0.5 0.5 - 1.4 02/26 Normal [facility] Medical Center CHEMISTRY Chloride Lvl 105.0 95 - 109 02/26 Normal Medical Center CHEMISTRY BUN 9.0 - 02/26 Normal Medical Center CHEMISTRY Glucose Lvl 120.0 02/26 NA <sup>4</sup>I nterpretive Medical Data: Center Reference Ranges : 0 - 7 days : 41 - 90 mg/dL 7 days - 150 yrs : 70 - 99 mg/dL (fasting), based on the clinical recommendatio ns of the [place] [employer]. HEMATOLOGY Hgb 10.5 12.0 - 02/26 [facility] 16.0 [facility] Center HEMATOLOGY Hct 31.2 36.0 - 02/26 [facility] 48.0 Medical Center BEDSIDE Comment1 Notify 02/26 NA [facility] GLUCOSE RN/ Medical TESTING Center CHEMISTRY Magnesium 1.9 1.8 - 2.4 02/24 Normal [facility] CHEMISTRY Calcium Lvl 7.9 8.5 - 10.5 02/24 LOW [facility] CHEMISTRY Chloride Lvl 106.0 95 - 109 02/24 Normal Medical Center CHEMISTRY CO2 24.0 - 32 02/24 Normal Medical Center CHEMISTRY Sodium Lvl 142.0 135 - 145 02/24 Normal Medical Center CHEMISTRY Creatinine 0.6 0.5 - 1.4 02/24 Normal [facility] CHEMISTRY BUN 12.0 - 02/24 Normal Medical Center CHEMISTRY Glucose Lvl 89.0 02/24 NA <sup>5</sup>I nterpretive Medical Data: Center Reference Ranges : 0 - 7 days : 41 - 90 mg/dL 7 days - 150 yrs : 70 - 99 mg/dL (fasting), based on the clinical recommendatio ns of the [place] [employer]. CHEMISTRY Potassium 3.7 3.5 - 5.1 02/24 Normal [facility] CHEMISTRY AGAP 15.7 10.0 - 02/24 Normal [place] 20.0 [facility] HEMATOLOGY Hct 30.7 36.0 - 02/24 LOW [place] 48.0 [facility] HEMATOLOGY Hgb 10.3 12.0 - 02/24 [facility] [place] 16.0 [facility] HEMATOLOGY Sed Rate 105.0 0 - 20 02/24 [facility] CHEMISTRY Magnesium 1.7 1.8 - 2.4 02/21 LOW [facility] CHEMISTRY Ca Norm mgdL 4.64 4.65 - 02/21 [facility] 5. [facility] CHEMISTRY Ca Ion 1.1 1.16 - 02/21 LOW [place] 1. [facility] CHEMISTRY Ca Norm 1.16 1.16 - 02/21 Normal [place] 1. [facility] CHEMISTRY Ca Ion mgdL 4.4 4.65 - 02/21 LOW [facility] 5. [facility] CHEMISTRY AGAP 16.9 10.0 - 02/21 Normal [facility] 20.0 [facility] CHEMISTRY BUN 6.0 7 - 22 02/21 [facility] CHEMISTRY Creatinine 0.4 0.5 - 1.4 02/21 LOW [facility] CHEMISTRY Glucose Lvl 154.0 02/21 NA <sup>6</sup>I nterpretive Medical Data: Center Reference Ranges : 0 - 7 days : 41 - 90 mg/dL 7 days - 150 yrs : 70 - 99 mg/dL (fasting), based on the clinical recommendatio ns of the [place] [employer]. CHEMISTRY Potassium 4.9 3.5 - 5.1 02/21 Normal [facility] CHEMISTRY Sodium Lvl 138.0 135 - 145 02/21 Normal Medical Center CHEMISTRY Calcium Lvl 7.7 8.5 - 10.5 02/21 LOW Medical Center CHEMISTRY Chloride Lvl 107.0 95 - 109 02/21 Normal Medical Center CHEMISTRY CO2 19.0 24 - 32 02/21 LOW [facility] CHEMISTRY Phosphorus 3.7 2.5 - 4.5 02/21 Normal Medical Center HEMATOLOGY Eosinophils 0.6 0.0 - 0.5 02/21 HI [place] # /2010 Medical Center HEMATOLOGY Monocytes # 0.9 0.0 - 0.8 02/21 [facility] HEMATOLOGY Basophils # 0.0 0.0 - 0.2 02/21 Normal Medical Center HEMATOLOGY Eosinophils 6.9 0.0 - 4.0 02/21 [facility] HEMATOLOGY Monocytes 9.6 2.0 - 12.0 02/21 Normal Medical Center HEMATOLOGY Segs-Bands # 5.2 1.5 - 8.1 02/21 Normal Medical Center HEMATOLOGY Basophils 0.3 0.0 - 1.0 02/21 Normal Medical Center HEMATOLOGY Lymphocytes 2.3 1.0 - 5.5 02/21 Normal [place] # /2010 Medical Center HEMATOLOGY Segs 57.5 45.0 - 02/21 Normal [place] 75.0 /2010 Medical Center HEMATOLOGY Lymphocytes 25.7 20.0 - 02/21 Normal [place] 40.0 /2010 Medical Center HEMATOLOGY MCHC 34.1 32.0 - 02/21 Normal [place] 36.0 /2010 Medical Center HEMATOLOGY Platelet 166.0 133 - 450 02/21 Normal Medical Center HEMATOLOGY RDW 16.2 11.5 - 02/21 [facility] [place] 14.5 /2010 Medical Center HEMATOLOGY MPV 7.8 7.4 - 10.4 02/21 Normal Medical Center HEMATOLOGY Hct 32.4 36.0 - 02/21 LOW [place] 48.0 /2010 Medical Center HEMATOLOGY MCV 96.0 81.0 - 02/21 Normal [place] 99.0 /2010 Medical Center HEMATOLOGY MCH 32.7 27.0 - 02/21 [facility] [place] 31.0 /2010 Medical Center HEMATOLOGY RBC 3.38 4.20 - 02/21 LOW [place] 5.40 /2010 Medical Center HEMATOLOGY Hgb 11.0 12.0 - 02/21 LOW [place] 16.0 /2010 Medical Center HEMATOLOGY WBC 9.0 3.7 - 10.4 02/21 Normal [place] /2010 Medical Center CHEMISTRY Magnesium 3.1 1.8 - 2.4 02/20 [facility] [place] Lvl /2010 Medical Center CHEMISTRY Phosphorus 3.4 2.5 - 4.5 02/20 Normal Medical Center CHEMISTRY Ca Ion mgdL 5.08 4.65 - 02/20 Normal [place] 5. Medical Center CHEMISTRY Ca Norm 1.28 1.16 - 02/20 Normal [place] 1.30 Medical Center CHEMISTRY Ca Ion 1.27 1.16 - 02/20 Normal [place] 1.30 Medical Center CHEMISTRY Ca Norm mgdL 5.12 4.65 - 02/20 Normal [place] 5. Medical Center HEMATOLOGY MCV 95.8 81.0 - 02/20 Normal [place] 99.0 /2010 Medical Center HEMATOLOGY Platelet 175.0 133 - 450 02/20 Normal Medical Center HEMATOLOGY MPV 7.8 7.4 - 10.4 02/20 Normal Medical Center HEMATOLOGY MCH 32.2 27.0 - 02/20 [facility] [place] 31.0 /2010 Medical Center HEMATOLOGY MCHC 33.7 32.0 - 02/20 Normal [place] 36.0 /2010 Medical Center HEMATOLOGY RDW 16.5 11.5 - 02/20 [facility] [place] 14.5 /2010 Medical Center HEMATOLOGY RBC 3.19 4.20 - 02/20 LOW [place] 5.40 /2010 Medical Center HEMATOLOGY WBC 6.9 3.7 - 10.4 02/20 Normal Medical Center HEMATOLOGY Eosinophils 0.4 0.0 - 0.5 02/20 Normal [place] # /2010 Medical Center HEMATOLOGY Basophils # 0.0 0.0 - 0.2 02/20 Normal [place] [facility] HEMATOLOGY Monocytes # 0.6 0.0 - 0.8 02/20 Normal [place] /2010 Medical Center HEMATOLOGY Segs 63.4 45.0 - 02/20 Normal [place] 75.0 /2010 Medical Center HEMATOLOGY Lymphocytes 20.5 20.0 - 02/20 Normal [place] 40.0 /2010 Medical Center HEMATOLOGY Monocytes 9.3 2.0 - 12.0 02/20 Normal Medical Center HEMATOLOGY Eosinophils 6.4 0.0 - 4.0 02/20 [facility] Medical Center HEMATOLOGY Basophils 0.4 0.0 - 1.0 02/20 Normal [facility] [place] HEMATOLOGY Segs-Bands # 4.4 1.5 - 8.1 02/20 Normal [facility] HEMATOLOGY Lymphocytes 1.4 1.0 - 5.5 02/20 Normal [facility] CHEMISTRY Ca Norm 1.02 1.16 - 02/19 LOW [place] 1. Medical Center CHEMISTRY Ca Norm mgdL 4.08 4.65 - 02/19 LOW [place] 5. Medical Center CHEMISTRY Ca Ion mgdL 4.12 4.65 - 02/19 LOW [place] 5. Medical Center CHEMISTRY Ca Ion 1.03 1.16 - 02/19 [facility] 06.30 Medical Center CHEMISTRY AST 66.0 0 - 37 02/19 [facility] Center CHEMISTRY Bili Total 0.8 0.2 - 1.3 02/19 Normal [facility] CHEMISTRY Albumin Lvl 2.3 3.5 - 5.0 02/19 LOW [facility] Center CHEMISTRY Total 4.8 6.4 - 8.4 02/19 [facility] CHEMISTRY ALT 67.0 0 - 65 02/19 [facility] CHEMISTRY Globulin 2.5 2.0 - 4.0 02/19 Normal [facility] CHEMISTRY A/G Ratio 0.9 0.7 - 1.6 02/19 Normal [facility] Center CHEMISTRY Alk Phos 155.0 39 - 136 02/19 [facility] Medical Center CHEMISTRY B/C Ratio 20.0 6 - 25 02/19 Normal [facility] HEMATOLOGY PTT 29.4 22.9 - 02/19 Normal <sup>8</sup>I [facility] 35.8 nterpretive Medical Data: Heparin Center Therapeutic Range: 57 - 92 Seconds HEMATOLOGY PT 13.9 12.0 - 02/19 Normal [facility] 14.7 Medical Center HEMATOLOGY INR 1.07 0.85 - 02/19 Normal <sup>7</sup>I [facility] 1.17 nterpretive Medical Data: Center RECOMMENDED RANGES FOR PROTIME INR: 2.0-3.0 for most medical and surgical thromboemboli c states. 2.5-3.5 for artificial heart valves and recurrent embolism. INR SHOULD BE USED ONLY FOR PATIENTS ON STABLE ANTICOAGULANT THERAPY. HEMATOLOGY RBC 3.4 4.20 - 02/19 LOW [place] 5.40 /2010 [facility] HEMATOLOGY MCH 32.2 27.0 - 02/19 [facility] [place] 31.0 /2010 [facility] HEMATOLOGY MCV 95.7 81.0 - 02/19 Normal [place] 99.0 /2010 [facility] HEMATOLOGY MCHC 33.6 32.0 - 02/19 [facility] [place] 36.0 /2010 [facility] HEMATOLOGY RDW 16.7 11.5 - 02/19 [facility] [place] 14.5 /2010 [facility] HEMATOLOGY MPV 7.8 7.4 - 10.4 02/19 Normal [place] [facility] HEMATOLOGY Platelet 173.0 133 - 450 02/19 Normal [place] /2010 [facility] HEMATOLOGY WBC 7.4 3.7 - 10.4 02/19 Normal /2010 [facility] HEMATOLOGY Monocytes 8.7 2.0 - 12.0 02/19 Normal [place] /2010 [facility] HEMATOLOGY Lymphocytes 15.6 20.0 - 02/19 LOW [place] 40.0 /2010 [facility] HEMATOLOGY Lymphocytes 1.1 1.0 - 5.5 02/19 Normal [facility] # /2010 [facility] HEMATOLOGY Monocytes # 0.6 0.0 - 0.8 02/19 Normal /2010 [facility] HEMATOLOGY Eosinophils 5.3 0.0 - 4.0 02/19 [facility] [place] /2010 [facility] HEMATOLOGY Segs-Bands # 5.1 1.5 - 8.1 02/19 Normal [place] [facility] HEMATOLOGY Basophils 0.6 0.0 - 1.0 02/19 [facility] HEMATOLOGY Segs 69.8 45.0 - 02/19 [facility] [place] 75.0 [facility] HEMATOLOGY Eosinophils 0.4 0.0 - 0.5 02/19 Normal [facility] # [facility] HEMATOLOGY Basophils # 0.0 0.0 - 0.2 02/19 [facility] CHEMISTRY Lactic Acid 1.1 0.5 - 2.2 02/19 Normal [facility] Lvl [facility] Microbiolog Culture: 02/19 [facility] Screen Microbiolog Culture: 02/19 [facility] y MRSA [facility] Center Microbiolog Culture: 02/19 [facility] y Anaerobic Medical Center Microbiolog Culture: 02/19 [facility] y Aspirate/Bod Medical y Center Fluid/Tissue CHEMISTRY POC A Glu 109.0 65 - 110 02/19 Normal [facility] Center CHEMISTRY POC A LA 0.6 0.5 - 2.2 02/19 Normal [facility] Center CHEMISTRY POC A Ca Ion 1.08 1.16 - 02/19 LOW [place] 1.30 Medical Center CHEMISTRY POC A Na 140.0 135 - 145 02/19 Normal [facility] Center CHEMISTRY POC A Hct 29.0 36.0 - 02/19 LOW [place] 48.0 [facility] Center CHEMISTRY POC A K 3.3 3.5 - 5.1 02/19 LOW [facility] Center CHEMISTRY POC A O2 Sat 100.0 95.0 - 02/19 Normal [facility] 100.0 [facility] Center CHEMISTRY POC A HCO3 22.0 22 - 26 02/19 Normal [facility] Center CHEMISTRY POC A BE -4.0 -2-2 - 2 02/19 LOW [facility] Center CHEMISTRY POC A Source ART 02/19 NA [facility] Center CHEMISTRY POC A pH 7.33 7.35 - 02/19 LOW [place] 7.45 [facility] Center CHEMISTRY POC A PCO2 41.0 35 - 45 02/19 Normal [facility] Center CHEMISTRY POC A Temp 37.0 02/19 NA [facility] Center CHEMISTRY POC A PO2 433.0 80 - 100 02/19 [facility] Microbiolog Culture: 02/19 [place] y Aspirate/Bod Medical y Center Fluid/Tissue Microbiolog Culture: CSF 02/19 y w/Gram Stain [facility] BODY FLUIDS Protein CSF 39.0 15 - 45 02/19 Normal [facility] Center BODY FLUIDS Glucose CSF 70.0 45 - 80 02/19 Normal [facility] Center BODY FLUIDS WBC CSF 1.0 0 - 5 02/19 Normal [facility] BODY FLUIDS Color CSF Light Red >Colorless 02/19 ABN [place] *ABN* /2010 Medical (02/19/2011 11:00:00) ?? Center BODY FLUIDS Clarity CSF Slight >Clear 02/19 ABN [place] *ABN* Medical (02/19/2011 11:00:00) ?? Center BODY FLUIDS Supernat CSF Colorless >Colorless 02/19 Normal [facility] (02/19/2011 11:00:00) ?? [facility] BODY FLUIDS RBC CSF 2885.0 0 - 0 02/19 [facility] BODY FLUIDS Tube Num CSF xxxxxxx 02/19 Normal [facility] (02/19/2011 11:00:00) ?? [facility] CHEMISTRY POC A Glu 107.0 65 - 110 02/19 Normal [facility] CHEMISTRY POC A K 3.2 3.5 - 5.1 02/19 LOW [facility] CHEMISTRY POC A Ca Ion 1.1 1.16 - 02/19 LOW [facility] 1. [facility] CHEMISTRY POC A LA 0.7 0.5 - 2.2 02/19 Normal [facility] CHEMISTRY POC A Source ART 02/19 NA [facility] CHEMISTRY POC A pH 7.35 7.35 - 02/19 [facility] 7.45 [facility] CHEMISTRY POC A Temp 37.0 02/19 NA [facility] CHEMISTRY POC A BE -3.0 -2-2 - 2 02/19 LOW [facility] CHEMISTRY POC A PCO2 41.0 35 - 45 02/19 Normal [facility] CHEMISTRY POC A PO2 404.0 80 - 100 02/19 [facility] CHEMISTRY POC A HCO3 23.0 22 - 26 02/19 Normal [facility] CHEMISTRY POC A Na 140.0 135 - 145 02/19 Normal [facility] CHEMISTRY POC A O2 Sat 100.0 95.0 - 02/19 [facility] 100.0 [facility] CHEMISTRY POC A Hct 29.0 36.0 - 02/19 [facility] [place] 48.0 [facility] BLOOD BANK ABO/Rh O NEG 02/19 Unknown [facility] RESULTS [facility] BLOOD BANK Antibody Negative 02/19 Normal [facility] RESULTS Scrn (02/19/2011 10:33:00) ?? [facility] Center CHEMISTRY POC A K 3.7 3.5 - 5.1 02/19 Normal [facility] CHEMISTRY POC A Ca Ion 1.1 1.16 - 02/19 LOW [place] 1. Medical Center CHEMISTRY POC A Glu 118.0 65 - 110 02/19 [facility] CHEMISTRY POC A LA 1.0 0.5 - 2.2 02/19 Normal Medical Center CHEMISTRY POC A Na 136.0 135 - 145 02/19 Normal Medical Center CHEMISTRY POC A pH 7.43 7.35 - 02/19 Normal [facility] 7.45 Medical Center CHEMISTRY POC A PO2 381.0 80 - 100 02/19 [facility] CHEMISTRY POC A BE -1.0 -2-2 - 2 02/19 Normal Medical Center CHEMISTRY POC A HCO3 23.0 22 - 26 02/19 Normal Medical Center CHEMISTRY POC A O2 Sat 100.0 95.0 - 02/19 Normal [facility] 100.0 Medical Center CHEMISTRY POC A PCO2 34.0 35 - 45 02/19 LOW Medical Center CHEMISTRY POC A Temp 37.0 02/19 NA Medical Center CHEMISTRY POC A Source ART 02/19 NA Medical Center CHEMISTRY POC A Hct 34.0 36.0 - 02/19 LOW [facility] 48.0 Medical Center CHEMISTRY AGAP 12.0 10.0 - 02/19 Normal 20.0 Medical Center CHEMISTRY Sodium Lvl 141.0 135 - 145 02/19 Normal Medical Center CHEMISTRY BUN 12.0 7 - 22 02/19 Normal Medical Center CHEMISTRY Creatinine 0.6 0.5 - 1.4 02/19 Normal [facility] CHEMISTRY CO2 24.0 24 - 32 02/19 Normal Medical Center CHEMISTRY Calcium Lvl 7.9 8.5 - 10.5 02/19 LOW Medical Center CHEMISTRY Potassium 4.0 3.5 - 5.1 02/19 Normal [facility] CHEMISTRY Chloride Lvl 109.0 95 - 109 02/19 Normal Medical Center CHEMISTRY Glucose Lvl 99.0 02/19 NA <sup>8</sup>I nterpretive Medical Data: Center Reference Ranges : 0 - 7 days : 41 - 90 mg/dL 7 days - 150 yrs : 70 - 99 mg/dL (fasting), based on the clinical recommendatio ns of the [place] [employer]. HEMATOLOGY Lymphocytes 2.4 1.0 - 5.5 02/19 Normal [facility] [place] # /2010 Medical Center HEMATOLOGY Monocytes # 0.7 0.0 - 0.8 02/19 Normal /2010 Medical Center HEMATOLOGY Basophils # 0.0 0.0 - 0.2 02/19 Normal /2010 [facility] Center HEMATOLOGY Eosinophils 0.6 0.0 - 0.5 02/19 HI [place] # /2010 Medical Center HEMATOLOGY Segs-Bands # 2.4 1.5 - 8.1 02/19 Normal [facility] HEMATOLOGY Monocytes 10.9 2.0 - 12.0 02/19 Normal /2010 Medical Center HEMATOLOGY Basophils 0.8 0.0 - 1.0 02/19 Normal /2010 Medical Center HEMATOLOGY Eosinophils 9.4 0.0 - 4.0 02/19 HI [facility] [place] HEMATOLOGY Lymphocytes 39.3 20.0 - 02/19 Normal [place] 40.0 [facility] HEMATOLOGY Segs 39.6 45.0 - 02/19 LOW [place] 75.0 /2010 Medical [place] HEMATOLOGY MPV 8.2 7.4 - 10.4 02/19 Normal [facility] HEMATOLOGY Platelet 159.0 133 - 450 02/19 Normal Medical Center HEMATOLOGY MCH 32.9 27.0 - 02/19 [facility] [place] 31.0 Medical Center HEMATOLOGY MCV 94.8 81.0 - 02/19 Normal [place] 99.0 /2010 Medical [place] HEMATOLOGY MCHC 34.7 32.0 - 02/19 [facility] [place] 36.0 /2010 [facility] HEMATOLOGY RDW 16.4 11.5 - 02/19 [facility] [place] 14.5 /2010 [facility] HEMATOLOGY Hgb 10.7 12.0 - 02/19 [facility] [place] 16.0 [facility] HEMATOLOGY RBC 3.26 4.20 - 02/19 [facility] [place] 5.40 /2010 Medical Center HEMATOLOGY Hct 30.9 36.0 - 02/19 [facility] [place] 48.0 Medical Center HEMATOLOGY WBC 6.2 3.7 - 10.4 02/19 Normal [facility] [place] HEMATOLOGY INR 1.0 0.85 - 02/19 Normal <sup>11</sup> [place] 1.17 Interpretive Medical Data: Center RECOMMENDED RANGES FOR PROTIME INR: 2.0-3.0 for most medical and surgical thromboemboli c states. 2.5-3.5 for artificial heart valves and recurrent embolism. INR SHOULD BE USED ONLY FOR PATIENTS ON STABLE ANTICOAGULANT THERAPY. HEMATOLOGY PT 13.2 12.0 - 02/19 Normal [place] 14.7 /2010 Medical Center HEMATOLOGY PTT 30.3 22.9 - 02/19 Normal <sup>12</sup> [facility] 35.8 /2010 Interpretive Medical Data: Heparin Center Therapeutic Range: 57 - 92 Seconds BEDSIDE Gluc POC 142.0 65 - 110 02/19 HI <sup>1</sup>I [facility] GLUCOSE [facility] nterpretive Medical TESTING Data: Center Upper Reportable Limit: 200 mg/dL. BEDSIDE Comment1 Notify 02/19 NA [facility] GLUCOSE RN/ /2010 Medical TESTING Center BEDSIDE Gluc POC 153.0 65 - 110 02/19 [facility] <sup>2</sup>[facility] TESTING Data: Center Upper Reportable Limit: 200 mg/dL. BEDSIDE Comment1 Notify 02/19 NA [place] GLUCOSE RN/ /2010 Medical TESTING Center BEDSIDE Gluc POC 149.0 65 - 110 02/19 HI <sup>3</sup>[facility] TESTING Data: Center Upper Reportable Limit: 200 mg/dL. BEDSIDE Comment1 Notify 02/18 NA [facility] GLUCOSE RN/ /2010 Medical TESTING Center HEMATOLOGY MCV 94.3 81.0 - 02/18 Normal [facility] 99.0 /2010 [facility] Center HEMATOLOGY Hct 33.1 36.0 - 02/18 LOW [place] 48.0 /2010 [facility] Center HEMATOLOGY RDW 16.6 11.5 - 02/18 [facility] 14.5 /2010 Medical Center HEMATOLOGY MCH 32.8 27.0 - 02/18 [facility] [place] 31.0 /2010 Medical Center HEMATOLOGY MCHC 34.7 32.0 - 02/18 Normal [place] 36.0 /2010 [facility] Center HEMATOLOGY MPV 7.9 7.4 - 10.4 02/18 Normal /2010 Medical Center HEMATOLOGY Platelet 152.0 133 - 450 02/18 Normal /2010 Medical Center HEMATOLOGY WBC 6.4 3.7 - 10.4 02/18 Normal /2010 Medical Center HEMATOLOGY RBC 3.51 4.20 - 02/18 LOW [place] 5.40 /2010 Medical Center HEMATOLOGY Hgb 11.5 12.0 - 02/18 LOW [place] 16.0 /2010 Medical Center HEMATOLOGY MPV 8.1 7.4 - 10.4 09 Normal /2010 Medical Center HEMATOLOGY MCH 32.7 27.0 - 09 HI [place] 31.0 /2010 Medical Center HEMATOLOGY MCV 95.1 81.0 - 02/15 Normal [place] 99.0 /2010 Medical Center HEMATOLOGY MCHC 34.3 32.0 - 02/15 Normal [place] 36.0 /2010 Medical Center HEMATOLOGY Platelet 117.0 133 - 450 09 LOW [place] /2010 Medical Center HEMATOLOGY RDW 16.5 11.5 - 09 HI [place] 14.5 /2010 Medical Center HEMATOLOGY WBC 12.9 3.7 - 10.4 02/15 HI /2010 Medical Center HEMATOLOGY Hct 34.1 36.0 - 02/15 LOW [place] 48.0 /2010 Medical Center HEMATOLOGY Hgb 11.7 12.0 - 02/15 LOW [place] 16.0 /2010 Medical Center HEMATOLOGY RBC 3.58 4.20 - 02/15 LOW [place] 5.40 /2010 Medical Center HEMATOLOGY Basophils # 0.1 0.0 - 0.2 09/ Normal /2010 Medical Center HEMATOLOGY Eosinophils 0.4 0.0 - 0.5 02/15 Normal [place] # /2010 Medical Center HEMATOLOGY Monocytes # 0.6 0.0 - 0.8 02/15 Normal /2010 Medical Center HEMATOLOGY Monocytes 4.8 2.0 - 12.0 02/15 Normal Medical Center HEMATOLOGY Lymphocytes 26.8 20.0 - 02/15 Normal [place] 40.0 /2010 Medical Center HEMATOLOGY Lymphocytes 3.5 1.0 - 5.5 02/15 Normal [place] # /2010 Medical Center HEMATOLOGY Segs-Bands # 8.3 1.5 - 8.1 02/15 HI /2010 Medical Center HEMATOLOGY Basophils 0.8 0.0 - 1.0 02/15 Normal Medical Center HEMATOLOGY Eosinophils 3.0 0.0 - 4.0 02/15 Normal Medical Center HEMATOLOGY Segs 64.6 45.0 - 02/15 Normal [place] 75.0 /2010 Medical Center CHEMISTRY Globulin 3.1 2.0 - 4.0 02/13 Normal Medical Center CHEMISTRY Albumin Lvl 2.7 3.5 - 5.0 02/13 LOW Medical Center CHEMISTRY Total 5.8 6.4 - 8.4 02/13 LOW [facility] Protein [facility] CHEMISTRY B/C Ratio 43.0 6 - 25 02/13 [facility] Center CHEMISTRY A/G Ratio 0.9 0.7 - 1.6 02/13 Normal [facility] CHEMISTRY ALT 52.0 0 - 65 02/13 Normal [facility] CHEMISTRY Alk Phos 183.0 39 - 136 02/13 [facility] CHEMISTRY eGFR >60.0 02/13 NA <sup>6</sup>[facility] Medical Comment: Center Expected eGFR for >20 yr. age group: >=60 ml/min/1.73 sq m The eGFR calculation is not valid in or for persons < 18 years of age. From [employer] (NKDEP) CHEMISTRY AGAP 16.9 10.0 - 02/13 Normal [facility] 20.0 [facility] CHEMISTRY Calcium Lvl 8.5 8.5 - 10.5 02/13 Normal [facility] CHEMISTRY Bili Total 0.6 0.2 - 1.3 02/13 Normal [facility] CHEMISTRY AST 49.0 0 - 37 02/13 [facility] CHEMISTRY Chloride Lvl 97.0 95 - 109 02/13 Normal [facility] CHEMISTRY Potassium 4.9 3.5 - 5.1 02/13 Normal <sup>5</sup>R [facility] esult Medical Comment: Center Specimen Moderately Hemolyzed. CHEMISTRY Creatinine 0.4 0.5 - 1.4 02/13 [facility] CHEMISTRY Sodium Lvl 134.0 135 - 145 02/13 [facility] CHEMISTRY Glucose Lvl 109.0 02/13 NA <sup>9</sup>I nterpretive Medical Data: Center Reference Ranges : 0 - 7 days : 41 - 90 mg/dL 7 days - 150 yrs : 70 - 99 mg/dL (fasting), based on the clinical recommendatio ns of the [place] [employer]. CHEMISTRY BUN 17.0 7 - 22 02/13 Normal [facility] Center CHEMISTRY CO2 25.0 24 - 32 02/13 Normal Medical Center CHEMISTRY AGAP 18.6 10.0 - 02/12 Normal [place] 20.0 /2010 Medical Center CHEMISTRY Calcium Lvl 8.3 8.5 - 10.5 02/12 LOW Medical Center CHEMISTRY Glucose Lvl 63.0 02/12 NA <sup>10</sup> Interpretive Medical Data: Center Reference Ranges : 0 - 7 days : 41 - 90 mg/dL 7 days - 150 yrs : 70 - 99 mg/dL (fasting), based on the clinical recommendatio ns of the [employer] [employer] Association. CHEMISTRY BUN 19.0 7 - 22 02/12 Normal [facility] CHEMISTRY Creatinine 0.7 0.5 - 1.4 02/12 Normal [facility] CHEMISTRY Sodium Lvl 135.0 135 - 145 02/12 Normal Medical Center CHEMISTRY Chloride Lvl 97.0 95 - 109 02/12 Normal [facility] CHEMISTRY Potassium 3.6 3.5 - 5.1 02/12 Normal [facility] CHEMISTRY CO2 23.0 24 - 32 02/12 LOW Medical [place] HEMATOLOGY Monocytes # 1.0 0.0 - 0.8 02/12 HI [facility] HEMATOLOGY Basophils # 0.1 0.0 - 0.2 02/12 Normal [facility] HEMATOLOGY Eosinophils 0.2 0.0 - 0.5 02/12 Normal [facility] Center HEMATOLOGY Lymphocytes 4.9 1.0 - 5.5 02/12 Normal [facility] HEMATOLOGY Basophils 0.7 0.0 - 1.0 02/12 Normal [facility] HEMATOLOGY Segs-Bands # 12.2 1.5 - 8.1 02/12 [facility] HEMATOLOGY Monocytes 5.5 2.0 - 12.0 02/12 Normal [facility] Center HEMATOLOGY Eosinophils 1.1 0.0 - 4.0 02/12 Normal [facility] HEMATOLOGY Segs 66.2 45.0 - 02/12 Normal [place] 75.0 Medical Center HEMATOLOGY Lymphocytes 26.5 20.0 - 09 Normal [place] 40.0 Medical Center CHEMISTRY Magnesium 1.8 1.8 - 2.4 02/11 Normal [facility] CHEMISTRY AST 57.0 0 - 37 09/13 HI [facility] CHEMISTRY Total 6.8 6.4 - 8.4 02/11 Normal [facility] CHEMISTRY Albumin Lvl 3.2 3.5 - 5.0 02/11 LOW [facility] CHEMISTRY Globulin 3.6 2.0 - 4.0 02/11 Normal [facility] CHEMISTRY A/G Ratio 0.9 0.7 - 1.6 02/11 Normal [facility] CHEMISTRY ALT 59.0 0 - 65 02/11 Normal [facility] CHEMISTRY Alk Phos 258.0 39 - 136 02/11 [facility] CHEMISTRY Bili Total 0.7 0.2 - 1.3 02/11 Normal [facility] CHEMISTRY B/C Ratio 45.0 6 - 25 02/11 [facility] HEMATOLOGY Anisocyte 1+ >None Seen 02/11 ABN [facility] *ABN* /2010 Medical (02/11/2011 14:00:00) ?? Center BEDSIDE Comment2 Sliding 02/11 [facility] GLUCOSE Scale Medical TESTING Center STOOL TESTS Fecal None Seen 4 02/11 Normal <sup>4</sup>I [facility] Leukocyte (02/11/2011 00:59:00) ?? nterpretive Medical Data: A Value Center of None Seen, Rare, or Few is Normal. BEDSIDE Comment2 Sliding 02/11 [facility] GLUCOSE [facility] TESTING Center CHEMISTRY eGFR 48.0 02/10 NA <sup>7</sup>R esult Medical Comment: Center Expected eGFR for >20 yr. age group: >=60 ml/min/1.73 sq m The eGFR calculation is not valid in or for persons < 18 years of age. From [employer] (NKDEP) CHEMISTRY Globulin 3.0 2.0 - 4.0 02/10 Normal [facility] Center CHEMISTRY A/G Ratio 1.0 0.7 - 1.6 02/10 Normal [facility] CHEMISTRY B/C Ratio 23.0 6 - 25 02/10 Normal [facility] CHEMISTRY AST 31.0 0 - 37 02/10 Normal [facility] CHEMISTRY Albumin Lvl 3.1 3.5 - 5.0 02/10 LOW Medical Center CHEMISTRY ALT 64.0 0 - 65 02/10 Normal Medical Center CHEMISTRY Total 6.1 6.4 - 8.4 02/10 LOW [facility] CHEMISTRY Bili Total 0.5 0.2 - 1.3 02/10 Normal Medical Center CHEMISTRY Alk Phos 235.0 39 - 136 02/10 HI Medical Center HEMATOLOGY Polychrom Slight >None Seen 02/08 Normal [facility] (02/08/2011 05:19:00) ?? Medical Center HEMATOLOGY Hypochrom Slight >None Seen 02/08 Normal [facility] (02/08/2011 05:19:00) ?? Medical Center HEMATOLOGY Anisocyte 1+ >None Seen 02/08 ABN [facility] *ABN* /2010 Medical (02/08/2011 05:19:00) ?? Center HEMATOLOGY Plt Morph Normal 02/08 Normal [facility] (02/08/2011 05:19:00) ?? Medical Center BEDSIDE Comment2 Sliding 02/07 NA [facility] GLUCOSE Medical TESTING Center HEMATOLOGY Bands 0.0 0.0 - 11.0 02/06 Normal Medical Center BLOOD BANK Antibody Negative 02/05 Normal [facility] RESULTS Scrn (02/05/2011 14:12:00) ?? [facility] Center BLOOD BANK ABO/Rh O NEG 02/05 Unknown [facility] RESULTS [facility] Center CHEMISTRY Total CK 64.0 12 - 191 02/04 Normal Medical Center CHEMISTRY Troponin-I 0.03 0.00 - 02/04 Normal [facility] 0.40 Medical Center CHEMISTRY Total CK 71.0 12 - 191 02/03 Normal Medical Center CHEMISTRY Troponin-I 0.05 0.00 - 02/03 Normal [facility] 0.40 Medical Center Microbiolog Culture: 02/02 [facility] y Urine Medical Center URINALYSIS UA ?? 0.1 - 1.0 02/02 NA [facility] Urobilinogen [facility] Center URINALYSIS UA Sq Epi None Seen 02/02 NA Medical Center URINALYSIS UA Leuk Est Negative >Negative 02/02 Normal [facility] (02/02/2011 17:21:00) ?? Medical Center URINALYSIS UA RBC <1.0 0 - 2 02/02 Normal Medical Center URINALYSIS UA Bacteria Occasional /HPF >None Seen 02/02 NA [facility] *NA* Medical (02/02/2011 17:21:00) ?? Center URINALYSIS UA Nitrite Negative >Negative 02/02 Normal [facility] (02/02/2011 17:21:00) ?? Medical Center URINALYSIS UA Ketones Negative mg/dL >Negative 02/02 [facility]02/02[facility]2011 17:21:00) ?? Center URINALYSIS UA Bili Negative >Negative 02/02 [facility] Medical (02/02/2011 17:21:00) ?? Center URINALYSIS UA Blood Negative >Negative 02/02 Normal [facility] (02/02/2011 17:21:00) ?? Medical Center URINALYSIS UA Protein Negative mg/dL >Negative 02/02 [facility] (02/02/2011 17:21:00) ?? Medical Center URINALYSIS UA Glucose Negative mg/dL >Negative 02/02 [facility] (02/02/2011 17:21:00) ?? Center URINALYSIS UA Color Light Yellow >Yellow 02/02 [facility] (02/02/2011 17:21:00) ?? Center URINALYSIS UA Turbidity Clear >Clear 02/02 Normal [facility] (02/02/2011 17:21:00) ?? Medical Center URINALYSIS UA Spec Grav 1.004 <<=1.030 02/02 Normal [facility] Center URINALYSIS UA pH 7.0 5.0 - 8.0 02/02 Normal [facility] CHEMISTRY T4 Free 0.98 0.76 - 02/01 Normal [facility] 1.46 /2010 [facility] Center CHEMISTRY TSH 0.711 0.360 - 02/01 Normal [facility] 3.740 [facility] Center IMMUNOLOGY Prealbumin 19.4 18.0 - 02/01 Normal [facility] 45.0 Medical Center BEDSIDE Comment1 Notify 01/31 NA [facility] GLUCOSE RN/MD /2010 Medical TESTING Center BEDSIDE Gluc POC 109.0 65 - 110 01/31 Normal <sup>2</sup>I [facility] GLUCOSE [facility] nterpretive Medical TESTING Data: Center Upper Reportable Limit: 200 mg/dL. CHEMISTRY Phosphorus 2.9 2.5 - 4.5 01/31 Normal [facility] Center CHEMISTRY CO2 24.0 24 - 32 01/31 Normal [facility] CHEMISTRY Calcium Lvl 7.7 8.5 - 10.5 01/31 LOW [facility] CHEMISTRY Glucose Lvl 100.0 01/31 NA <sup>5</sup>I nterpretive Medical Data: Center Reference Ranges : 0 - 7 days : 41 - 90 mg/dL 7 days - 150 yrs : 70 - 99 mg/dL (fasting), based on the clinical recommendatio ns of the [place] [employer]. CHEMISTRY Sodium Lvl 138.0 135 - 145 01/31 Normal [facility] CHEMISTRY Potassium 3.9 3.5 - 5.1 01/31 Normal [facility] CHEMISTRY BUN 17.0 7 - 22 01/31 Normal [facility] CHEMISTRY Creatinine 0.7 0.5 - 1.4 01/31 Normal [facility] CHEMISTRY Chloride Lvl 100.0 95 - 109 01/31 Normal [facility] CHEMISTRY AGAP 17.9 10.0 - 01/31 Normal [facility] 20.0 [facility] CHEMISTRY Magnesium 1.9 1.8 - 2.4 01/31 Normal [facility] CHEMISTRY Ca Norm 1.13 1.16 - 01/31 LOW [facility] 1. [facility] CHEMISTRY Ca Ion 1.09 1.16 - 01/31 [facility] 1. [facility] CHEMISTRY Ca Norm mgdL 4.52 4.65 - 01/31 [facility] 5. [facility] CHEMISTRY Ca Ion mgdL 4.36 4.65 - 01/31 [facility] 5. Medical Center HEMATOLOGY Large Plt Slight >None Seen 01/31 [facility] *ABN* /2010 Medical (01/31/2011 03:36:00) ?? Center HEMATOLOGY Monocytes # 1.4 0.0 - 0.8 01/31 [facility] Medical Center HEMATOLOGY Myelocytes 3.0 <<=0.0 01/31 [facility] Medical Center HEMATOLOGY Segs-Bands # 18.6 1.5 - 8.1 01/31 [facility] /2011 Medical Center HEMATOLOGY Lymphocytes 1.6 1.0 - 5.5 01/31 Normal [place] # /2010 Medical Center HEMATOLOGY Metamyelocyt 2.0 0.0 - 1.0 01/31 [facility] es /2010 Medical Center HEMATOLOGY Lymphocytes 7.0 20.0 - 01/31 LOW [place] 40.0 /2010 Medical Center HEMATOLOGY Monocytes 6.0 2.0 - 12.0 01/31 Normal [place] /2010 Medical Center HEMATOLOGY Segs 79.0 45.0 - 01/31 [facility] [place] 75.0 /2010 Medical Center HEMATOLOGY Bands 2.0 0.0 - 11.0 01/31 Normal [place] [facility] HEMATOLOGY Hypochrom Slight >None Seen 01/31 Normal [facility] (01/31/2011 03:36:00) ?? [facility] Center HEMATOLOGY Polychrom Slight >None Seen 01/31 [facility] (01/31/2011 03:36:00) ?? [facility] Center HEMATOLOGY Rouleaux Present >None Seen 01/31 [facility] *ABN* /2010 Medical (01/31/2011 03:36:00) ?? Center HEMATOLOGY Atypical 0.0 <<=0.0 01/31 Normal [facility] Lymphs /2010 Medical Center HEMATOLOGY Promyelocyte 1.0 <<=0.0 01/31 [facility] s /2010 Medical Center HEMATOLOGY RDW 15.3 11.5 - 01/31 [facility] [place] 14.5 /2010 [facility] Center HEMATOLOGY MPV 10.1 7.4 - 10.4 01/31 Normal [place] [facility] Center HEMATOLOGY Platelet 166.0 133 - 450 01/31 Normal [place] [facility] HEMATOLOGY Hct 37.3 36.0 - 01/31 Normal [place] 48.0 /2010 Medical Center HEMATOLOGY MCHC 32.7 32.0 - 01/31 Normal [place] 36.0 /2010 Medical Center HEMATOLOGY MCV 94.8 81.0 - 01/31 Normal [place] 99.0 /2010 Medical Center HEMATOLOGY MCH 31.0 27.0 - 01/31 Normal [place] 31.0 /2010 Medical Center HEMATOLOGY WBC 23.0 3.7 - 10.4 01/31 [facility] [place] [facility] HEMATOLOGY RBC 3.93 4.20 - 01/31 LOW [place] 5.40 /2010 Medical Center HEMATOLOGY Hgb 12.2 12.0 - 01/31 Normal [facility] 16.0 Medical Center BEDSIDE Gluc POC 188.0 65 - 110 01/31 HI <sup>3</sup>I [facility] GLUCOSE [facility] nterpretive Medical TESTING Data: Center Upper Reportable Limit: 200 mg/dL. BEDSIDE Comment1 Notify 01/31 NA [facility] GLUCOSE RN/MD Medical TESTING Center BEDSIDE Gluc POC 233.0 65 - 110 01/31 HI <sup>4</sup>I [facility] GLUCOSE [facility] nterpretive Medical TESTING Data: Center Upper Reportable Limit: 200 mg/dL. BEDSIDE Comment1 Notify 01/30 NA [facility] GLUCOSE RN/MD Medical TESTING Center CHEMISTRY Albumin Lvl 2.7 3.5 - 5.0 01/29 LOW [facility] Center CHEMISTRY Phosphorus 3.7 2.5 - 4.5 01/29 Normal [facility] CHEMISTRY Ca Ion mgdL 4.2 4.65 - 01/29 LOW [facility] 5. Medical Center CHEMISTRY Ca Norm mgdL 4.24 4.65 - 01/29 LOW [facility] 5. Medical Center CHEMISTRY Ca Ion 1.05 1.16 - 01/29 LOW [place] 1. Medical Center CHEMISTRY Ca Norm 1.06 1.16 - 01/29 LOW [facility] 1. Medical Center CHEMISTRY Magnesium 2.4 1.8 - 2.4 01/29 Normal [facility] CHEMISTRY AGAP 15.0 10.0 - 01/29 Normal [facility] 20.0 Medical Center CHEMISTRY BUN 23.0 7 - 22 01/29 [facility] Medical Center CHEMISTRY Creatinine 0.8 0.5 - 1.4 01/29 Normal [facility] CHEMISTRY Glucose Lvl 232.0 01/29 NA <sup>6</sup>I nterpretive Medical Data: Center Reference Ranges : 0 - 7 days : 41 - 90 mg/dL 7 days - 150 yrs : 70 - 99 mg/dL (fasting), based on the clinical recommendatio ns of the [place] [employer]. CHEMISTRY Potassium 4.0 3.5 - 5.1 01/29 Normal [facility] CHEMISTRY Sodium Lvl 144.0 135 - 145 01/29 Normal Medical Center CHEMISTRY Chloride Lvl 109.0 95 - 109 01/29 Normal [facility] Center CHEMISTRY CO2 24.0 24 - 32 01/29 Normal [facility] CHEMISTRY Calcium Lvl 7.8 8.5 - 10.5 01/29 LOW [facility] HEMATOLOGY Large Plt Slight >None Seen 01/29 ABN [place] *ABN* /2010 Medical (01/29/2011 10:02:00) ?? Center HEMATOLOGY Polychrom Slight >None Seen 01/29 Normal [facility] (01/29/2011 10:02:00) ?? /2010 [facility] Center HEMATOLOGY Atypical 0.0 <<=0.0 01/29 Normal [facility] Lymphs [facility] HEMATOLOGY NRBC 1.0 01/29 NA [facility] HEMATOLOGY Segs 81.0 45.0 - 01/29 HI [place] 75.0 [facility] HEMATOLOGY Lymphocytes 9.0 20.0 - 01/29 LOW [place] 40.0 [facility] HEMATOLOGY Monocytes 5.0 2.0 - 12.0 01/29 Normal [facility] HEMATOLOGY Myelocytes 1.0 <<=0.0 01/29 HI [facility] HEMATOLOGY Metamyelocyt 2.0 0.0 - 1.0 01/29 [facility] es /2010 [facility] Center HEMATOLOGY Bands 2.0 0.0 - 11.0 01/29 Normal [facility] HEMATOLOGY Monocytes # 1.0 0.0 - 0.8 01/29 HI [facility] HEMATOLOGY Lymphocytes 1.8 1.0 - 5.5 01/29 Normal [place] # /2010 [facility] Center HEMATOLOGY Segs-Bands # 16.3 1.5 - 8.1 01/29 HI [facility] HEMATOLOGY MPV 9.4 7.4 - 10.4 01/29 Normal [facility] HEMATOLOGY Hct 33.9 36.0 - 01/29 LOW [place] 48.0 Medical Center HEMATOLOGY MCV 94.0 81.0 - 01/29 Normal [place] 99.0 [facility] HEMATOLOGY MCH 31.5 27.0 - 01/29 [facility] [place] 31.0 Medical [place] HEMATOLOGY MCHC 33.6 32.0 - 01/29 Normal [place] 36.0 [facility] Center HEMATOLOGY RDW 16.1 11.5 - 01/29 [facility] [place] 14.5 Medical Center HEMATOLOGY Platelet 178.0 133 - 450 01/29 Normal Medical Center HEMATOLOGY WBC 19.6 3.7 - 10.4 01/29 [facility] Medical Center HEMATOLOGY Hgb 11.4 12.0 - 01/29 [facility] [place] 16.0 Medical Center HEMATOLOGY RBC 3.61 4.20 - 01/29 [facility] [place] 5.40 Medical Center CHEMISTRY AGAP 14.2 10.0 - 01/28 Normal [place] 20.0 Medical Center CHEMISTRY Chloride Lvl 116.0 95 - 109 01/28 [facility] Medical Center CHEMISTRY Sodium Lvl 152.0 135 - 145 01/28 [facility] Medical Center CHEMISTRY Potassium 3.2 3.5 - 5.1 01/28 [facility] Medical Center CHEMISTRY CO2 25.0 24 - 32 01/28 Normal Medical Center CHEMISTRY Calcium Lvl 7.5 8.5 - 10.5 01/28 [facility] Medical Center CHEMISTRY Glucose Lvl 57.0 01/28 NA <sup>7</sup>I nterpretive Medical Data: Center Reference Ranges : 0 - 7 days : 41 - 90 mg/dL 7 days - 150 yrs : 70 - 99 mg/dL (fasting), based on the clinical recommendatio ns of the [place] [employer]. CHEMISTRY BUN 21.0 7 - 22 01/28 Normal [facility] Center CHEMISTRY Creatinine 0.7 0.5 - 1.4 01/28 Normal [facility] CHEMISTRY Phosphorus 3.2 2.5 - 4.5 01/28 Normal Medical Center CHEMISTRY Magnesium 2.2 1.8 - 2.4 01/28 [facility] Medical Center CHEMISTRY Ca Norm 1.09 1. - 01/28 [facility] [place] 1 Medical Center CHEMISTRY Ca Ion 1.06 1.16 - 01/28 [facility] [place] 06.30 Medical Center CHEMISTRY Ca Norm mgdL 4.36 4.65 - 01/28 [facility] [place] 10.18 Medical Center CHEMISTRY Ca Ion mgdL 4.24 4.65 - 01/28 [facility] 10.18 Medical Center HEMATOLOGY Platelet 144.0 133 - 450 08/30 Normal Medical Center HEMATOLOGY MPV 10.4 7.4 - 10.4 01/28 Normal Medical Center HEMATOLOGY MCH 31.1 27.0 - 08 [facility] [place] 31.0 /2010 Medical Center HEMATOLOGY MCHC 33.3 32.0 - 08 [facility] [place] 36.0 /2010 [facility] HEMATOLOGY RDW 16.0 11.5 - 01/28 [facility] [place] 14.5 /2010 Medical Center HEMATOLOGY Hct 32.3 36.0 - 08 [facility] [place] 48.0 /2010 Medical Center HEMATOLOGY MCV 93.5 81.0 - 08 [facility] [place] 99.0 /2010 Medical Center HEMATOLOGY RBC 3.45 4.20 - 01/28 [facility] [place] 5.40 /2010 Medical Center HEMATOLOGY Hgb 10.7 12.0 - 01/28 [facility] [place] 16.0 Medical Center HEMATOLOGY WBC 20.1 3.7 - 10.4 01/28 [facility] Medical [place] HEMATOLOGY Eosinophils 0.0 0.0 - 4.0 01/28 Normal [facility] HEMATOLOGY Monocytes 4.1 2.0 - 12.0 01/28 Normal [facility] HEMATOLOGY Segs-Bands # 18.0 1.5 - 8.1 01/28 [facility] HEMATOLOGY Basophils 0.0 0.0 - 1.0 01/28 Normal [facility] HEMATOLOGY Lymphocytes 6.6 20.0 - 08 [facility] [place] 40.0 /2010 [facility] HEMATOLOGY Basophils # 0.0 0.0 - 0.2 01/28 Normal [facility] HEMATOLOGY Eosinophils 0.0 0.0 - 0.5 01/28 [facility] [place] [facility] HEMATOLOGY Monocytes # 0.8 0.0 - 0.8 01/28 Normal [facility] HEMATOLOGY Lymphocytes 1.3 1.0 - 5.5 01/28 [facility] [place] Medical [place] HEMATOLOGY Segs 89.3 45.0 - 01/28 [facility] [place] 75.0 [facility] CHEMISTRY Osmolality 317.0 280 - 300 01/27 [facility] CHEMISTRY POC A pH 7.56 7.35 - 08 [facility] [place] 7.45 [facility] CHEMISTRY POC A PO2 150.0 80 - 100 01/27 [facility] Medical Center CHEMISTRY POC A Source ART 01/27 NA [facility] CHEMISTRY POC A Temp 37.0 01/27 NA [facility] CHEMISTRY POC A BE 4.0 -2-2 - 2 01/27 [facility] CHEMISTRY POC A O2 Sat 100.0 95.0 - 01/27 Normal [facility] 100.0 [facility] CHEMISTRY POC A HCO3 25.0 22 - 26 01/27 Normal [facility] CHEMISTRY POC A PCO2 28.0 35 - 45 01/27 CRIT [facility] CHEMISTRY Osmolality 305.0 280 - 300 01/27 HI [facility] HEMATOLOGY PTT 25.2 22.9 - 01/27 Normal <sup>12</sup> [facility] 35.8 Interpretive Medical Data: Heparin Center Therapeutic Range: 57 - 92 Seconds HEMATOLOGY PT 15.8 12.0 - 01/27 [facility] 14. [facility] HEMATOLOGY INR 1.26 0.85 - 01/27 HI <sup>9</sup>I [facility] 1. nterpretive Medical Data: Center RECOMMENDED RANGES FOR PROTIME INR: 2.0-3.0 for most medical and surgical thromboemboli c states. 2.5-3.5 for artificial heart valves and recurrent embolism. INR SHOULD BE USED ONLY FOR PATIENTS ON STABLE ANTICOAGULANT THERAPY. HEMATOLOGY Eosinophils 0.0 0.0 - 4.0 01/27 Normal [facility] HEMATOLOGY Basophils 0.2 0.0 - 1.0 01/27 Normal [facility] HEMATOLOGY Eosinophils 0.0 0.0 - 0.5 01/27 Normal [facility] HEMATOLOGY Basophils # 0.0 0.0 - 0.2 01/27 Normal [facility] CHEMISTRY Osmolality 306.0 280 - 300 01/26 HI [facility] HEMATOLOGY Basophils # 0.0 0.0 - 0.2 01/26 Normal [facility] HEMATOLOGY Eosinophils 0.0 0.0 - 4.0 01/26 Normal [facility] HEMATOLOGY Eosinophils 0.0 0.0 - 0.5 01/26 Normal [facility] HEMATOLOGY Basophils 0.1 0.0 - 1.0 01/26 Normal [facility] HEMATOLOGY PTT 29.8 22.9 - 01/26 Normal <sup>13</sup> [facility] 35.8 /2010 Interpretive Medical Data: Heparin Center Therapeutic Range: 57 - 92 Seconds HEMATOLOGY PT 15.4 12.0 - 01/26 [facility] 14.7 /2010 Medical [place] HEMATOLOGY INR 1.22 0.85 - 01/26 HI <sup>10</sup> [facility] 1.17 /2010 Interpretive Medical Data: Center RECOMMENDED RANGES FOR PROTIME INR: 2.0-3.0 for most medical and surgical thromboemboli c states. 2.5-3.5 for artificial heart valves and recurrent embolism. INR SHOULD BE USED ONLY FOR PATIENTS ON STABLE ANTICOAGULANT THERAPY. CHEMISTRY POC A Glu 108.0 65 - 110 01/26 Normal [facility] CHEMISTRY POC A LA 0.8 0.5 - 2.2 01/26 Normal [facility] CHEMISTRY POC A Ca Ion 1.17 1.16 - 01/26 Normal [facility] 1.30 [facility] CHEMISTRY POC A K 3.6 3.5 - 5.1 01/26 Normal [facility] CHEMISTRY POC A Na 140.0 135 - 145 01/26 Normal [facility] CHEMISTRY POC A PO2 80.0 80 - 100 01/26 Normal [facility] CHEMISTRY POC A PCO2 40.0 35 - 45 01/26 Normal [facility] CHEMISTRY POC A Source ART 01/26 NA [facility] CHEMISTRY POC A Temp 37.0 01/26 NA [facility] CHEMISTRY POC A pH 7.4 7.35 - 01/26 Normal [facility] 7.45 [facility] CHEMISTRY POC A Hct 34.0 36.0 - 01/26 LOW [place] 48.0 [facility] CHEMISTRY POC A BE 0.0 -2-2 - 2 01/26 Normal [facility] CHEMISTRY POC A O2 Sat 96.0 95.0 - 01/26 Normal [facility] 100.0 [facility] CHEMISTRY POC A HCO3 25.0 22 - 26 01/26 Normal [facility] CHEMISTRY POC A O2 Sat 96.0 95.0 - 01/26 Normal [place] 100.0 [facility] CHEMISTRY POC A K 3.6 3.5 - 5.1 01/26 Normal [facility] CHEMISTRY POC A LA 0.8 0.5 - 2.2 01/26 Normal [facility] CHEMISTRY POC A Glu 113.0 65 - 110 01/26 HI Medical [place] CHEMISTRY POC A Source ART 01/26 NA Medical [place] CHEMISTRY POC A Temp 37.0 01/26 NA [facility] CHEMISTRY POC A HCO3 25.0 22 - 26 01/26 Normal [facility] CHEMISTRY POC A PO2 79.0 80 - 100 01/26 LOW [facility] CHEMISTRY POC A PCO2 38.0 35 - 45 01/26 Normal [facility] CHEMISTRY POC A pH 7.42 7.35 - 01/26 Normal [facility] 7.45 [facility] CHEMISTRY POC A BE 0.0 -2-2 - 2 01/26 Normal [facility] CHEMISTRY POC A Ca Ion 1.22 1.16 - 01/26 Normal [facility] . [facility] CHEMISTRY POC A Na 138.0 135 - 145 01/26 Normal [facility] CHEMISTRY POC A Hct 36.0 36.0 - 01/26 Normal 48.0 [facility] CHEMISTRY POC A Hct 41.0 36.0 - 01/26 Normal 48. [facility] CHEMISTRY POC A Na 140.0 135 - 145 01/26 Normal [facility] CHEMISTRY POC A Ca Ion 1.05 1. - 01/26 LOW [place] . [facility] CHEMISTRY POC A K 3.6 3.5 - 5.1 01/26 Normal [facility] CHEMISTRY POC A LA 0.8 0.5 - 2.2 01/26 Normal [facility] CHEMISTRY POC A Glu 107.0 65 - 110 01/26 Normal [facility] BLOOD BANK Antibody Negative 01/26 Normal [facility] RESULTS Scrn (01/26/2011 09:00:00) ?? /2010 [facility] Center BLOOD BANK ABO/Rh O NEG 01/26 Unknown [facility] Medical [place] HEMATOLOGY PTT 28.2 22.9 - 01/26 Normal <sup>14</sup> [facility] 35.8 Interpretive Medical Data: [facility] Center Therapeutic Range: 57 - 92 Seconds HEMATOLOGY INR 1.24 0.85 - 01/26 HI <sup>11</sup> [facility] 1 Interpretive Medical Data: Center RECOMMENDED RANGES FOR PROTIME INR: 2.0-3.0 for most medical and surgical thromboemboli c states. 2.5-3.5 for artificial heart valves and recurrent embolism. INR SHOULD BE USED ONLY FOR PATIENTS ON STABLE ANTICOAGULANT THERAPY. HEMATOLOGY PT 15.6 12.0 - 01/26 [facility] 14.7 Medical Center CHEMISTRY CK MB Index 0.4 0.0 - 2.5 01/25 Normal Medical Center CHEMISTRY CK MB 1.1 0.5 - 3.6 01/25 Normal Medical Center CHEMISTRY Myoglobin 141.0 - 72 01/25 [facility] Medical Center CHEMISTRY Troponin-T <0.01 0.000 - 01/25 Normal [facility] 0. Medical Center CHEMISTRY Total CK 256.0 12 - 191 01/25 [facility] Medical Center CHEMISTRY Total CK 219.0 12 - 191 01/25 [facility] CHEMISTRY Troponin-T <0.01 0.000 - 01/25 Normal [facility] 0. [facility] Center CHEMISTRY CK MB Index 0.7 0.0 - 2.5 01/25 Normal Medical Center CHEMISTRY CK MB 1.5 0.5 - 3.6 01/25 Normal Medical Center CHEMISTRY Lactic Acid 2.4 0.5 - 2.2 01/25 [facility] Lvl [facility] Center HEMATOLOGY Target Cell Slight >None Seen 01/25 ABN [facility] *ABN* /2010 Medical (01/24/2011 19:16:00) ?? Center HEMATOLOGY Bands 2.0 0.0 - 11.0 01/25 Normal [facility] HEMATOLOGY Plt Morph Normal 01/25 Normal [facility] (01/24/2011 19:16:00) ?? [facility] CHEMISTRY Troponin-T <0.01 0.000 - 01/24 Normal [facility] 0. [facility] CHEMISTRY Myoglobin 60.0 72 01/24 Normal [facility] CHEMISTRY Total CK 34.0 - 191 01/24 Normal [facility] BLOOD BANK Antibody Negative 01/24 Normal [facility] RESULTS Scrn (01/24/2011 03:15:00) ?? [facility] Center BLOOD BANK ABO/Rh O NEG 01/24 Unknown [facility] RESULTS Medical Center BLOOD BANK Platelet Product available 01/24 Normal [facility] RESULTS product (01/24/2011 03:15:00) ?? [facility] BLOOD BANK RBC product Product available 01/24 [facility] RESULTS (01/24/2011 03:15:00) ?? [facility] CHEMISTRY CK MB Index 1.2 0.0 - 2.5 01/23 Normal [facility] CHEMISTRY CK MB 1.2 0.5 - 3.6 01/23 Normal [facility] CHEMISTRY Hgb A1C 8.7 01/23 NA <sup>8</sup>I nterpretive Medical Data: HbA1C% Center eAG(mg/dL) Interpretatio n 6.0 126 Very good control 6.5 140 Very good control 7.0 154 Good Control 7.5 169 Good Control 8.0 183 Marginal Control, take action to lower 8.5 197 Marginal Control, take action to lower 9.0 212 Poor Control, take action to lower 9.5 226 Poor Control, take action to lower 10.0 240 Poor Control, take action to lower CHEMISTRY Troponin-I <0.02 0.00 - 01/23 Normal [facility] 0.40 [facility] URINALYSIS UA Ketones TR 01/23 [facility] URINALYSIS UA ?? 0.1 - 1.0 01/23 [facility] Urobilinogen /2010 [facility] URINALYSIS UA Sq Epi Occasional /LPF >Few [facility]23 [facility]01/23[facility]2011 05:29:00[facility] ?? Center URINALYSIS UA WBC <1.0 0 - 5 01/23 Normal [facility] URINALYSIS UA Mucus Few /LPF >None Seen 01/23 [facility] *NA* Medical (01/23/2011 05:29:00) ?? Center URINALYSIS UA RBC <1.0 0 - 2 01/23 Normal [facility] URINALYSIS UA Protein Negative mg/dL >Negative 01/23 [facility] (01/23/2011 05:29:00) ?? [facility] URINALYSIS UA Nitrite Negative >Negative 01/23 [facility] (01/23/2011 05:29:00) ?? [facility] URINALYSIS UA Leuk Est Negative >Negative 01/23 Normal [facility] (01/23/2011 05:29:00) ?? [facility] URINALYSIS UA Bili Negative >Negative 01/23 NA [facility] *NA* Medical (01/23/2011 05:29:00) ?? Center URINALYSIS UA Glucose 150 mg/dL >Negative 01/23 ABN [facility] *ABN* [facility] (01/23/2011 05:29:00) ?? Center URINALYSIS UA Blood Negative >Negative 01/23 Normal [facility] (01/23/2011 05:29:00) ?? [facility] URINALYSIS UA pH 5.0 5.0 - 8.0 01/23 Normal [facility] URINALYSIS UA Spec Grav 1.01 <<=1.030 01/23 Normal [facility] URINALYSIS UA Turbidity Clear >Clear 01/23 Normal [facility] (01/23/2011 05:29:00) ?? [facility] URINALYSIS UA Color Yellow >Yellow 01/23 NA [facility] *NA* [facility] (01/23/2011 05:29:00) ?? Center BACTERIAL - MRSA by PCR Negative 1 01/23 Normal <sup>1</sup>I [facility] SEROLOGY (01/23/2011 05:00:00) ?? nterpretive Medical Data: Center INTERPRETATIO N: Negative..... .No MRSA DNA detected by PCR Positive..... .MRSA DNA detected by PCR ASSAY LIMITATIONS: This is a screening test for colonization by MRSA. A positive test result indicates the patient is colonized by MRSA, but does not necessarily mean that an infection is present or that treatment is necessary. Likewise, a negative test does not exclude colonization or infection. Patients should be evaluated clinically for symptoms and signs of infection before making therapeutic decisions. Routine decolonizatio n is discouraged and should only be considered for select patients after consultation with an infectious diseases specialist. Microbiolog Culture: 01/23 [facility] Pathology Reports No Data Provided for This Section Diagnostic Reports Report Value Date Source Chest 2 views DX PROCEDURE: Chest Radiograph. 11/18/2018 DOMONIQUE Kelly Clinical Indication: Pneumonia. Comparison: Chest radiograph 09/17/2018. FINDINGS: The chest shows minimal subsegmental atelectasis at the left lung base. No focal consolidation is identified. There is left-sided TAX EXAMINER shunt tubing. There are calcified granulomata in the upper lobes. The cardiac silhouette is upper limits of normal in size. Degenerative change involves the thoracic spine and shoulders. An old distal right clavicle fracture is suspected. IMPRESSION: 1. Minimal left lower lobe subsegmental atelectasis. [id number] Bone Density DXA 10/21/2018 [facility] [employer] [place] BONE DENSITY ASSESSMENT: 10/21/2018 CLINICAL DATA: Post menopausal and clinical risk for osteoporosis. 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 /M81.0 Age- Related Osteoporosis Without Current Pathological Fracture FINDINGS: Bone density evaluation was performed 10/21/2018 on the right femur neck using a Hologic unit. The BMD average for the exam is 0.699 g/cm2. The T-score is -1.40 and the Z-score is 0.50. This matches t he World Health Organization's criteria for osteopenia and places the patient at a medium risk for fracture. An additional bone density evaluation was performed 10/21/2018 on the left femur neck using a Hologic unit. The BMD average for the exam is 0.630 g/cm2. The T-score is -2.00 and the Z-score is -0.10. This matches the World Health Organization's criteria for osteopenia and places the patient at a medium risk for fracture. An additional bone density evaluation was performed 10/21/2018 on the right total femur area using a Hologic unit. The BMD average for the exam is 0.818 g/ cm2. The T-score is -1.00 and the Z-score is 0 .60. This matches the World Health Organization's criteria for normal bone density and places the patient within normal limits of fracture risk. An additional bone density evaluation was performed 10/21/2018 on the left total femur area using a Hologic unit. The BMD average for the exam is 0.851 g/ cm2. The T-score is -0.70 and the Z-score is 0. 90. This matches the World Health Organization's criteria for normal bone density and places the patient within normal limits of fracture risk. An additional bone density evaluation was performed 10/21/2018 on the AP L2- L4 region of spine using a Hologic unit. The BMD average for the exam is 1.097 g/cm2. The T-score is 0.20 and the Z-score is 2.40. This matches the World Health Organization's criteria for normal bone density and places the patient within normal limits of fracture risk. FRAX 10 year probability of major osteoporotic fracture is 10% and hip fracture is 1.9%. IMPRESSION: OSTEOPENIA Patient is at medium risk for fracture. Patient consult w/primary care provider is recommended. This exam was interpreted at [id number] for CRISPIN Kelly 15. Betzy Caba M.D. ms/penrad:10/21/2018 12:45:40 [employer]): Jan [place] Esophagus BA swallow EXAM: FLUOROSCOPY MODIFIED BARIUM SWALLOW 09/23/2018 [facility] function video DX DATE: 09/23/2018 at 0942 hours Center INDICATION: - dysphagia. ADDITIONAL INFORMATION: Past medical history myasthenia gravis. COMPARISON: 09/16/2018 modified barium swallow. TECHNIQUE: Oral barium contrast of differing consistencies was given to the patient to assess swallowing mechanism. The study was performed in conjunction with speech pathology. FLUOROSCOPY TIME: 1 minute 11 seconds SKIN DOSE: 8.50 mGy DISCUSSION: The patient was given barium contrast of different consistencies. Thin barium: Pooling of residue without penetration or aspiration. Pudding barium: Pooling of residue without penetration or aspiration. Solid with barium: Pooling of residue without penetration or aspiration. IMPRESSION: 1. Pooling of residue without penetration or aspiration was observed with thin, pudding, and solid consistency barium contrast. 2. Please also see detailed chart note by speech pathology. Skull 1 view DX EXAM: SKULL 1 view DATE: - Codman's view 09/22/2018 [facility] INDICATION: Suspected shunt malfunction. Center TECHNIQUE: lateral view of the skull FINDINGS: An intact ventricular peritoneal shunt is present, Adjustable flow device is a Codman valvewith the settings at approximately 150 cm of water, in the prior exam from September 11 and was approximately at 130 mL of water. IMPRESSION: Codman valve setting of approximately 150 mL of water Chest 1view DX EXAM: XR CHEST 1 VIEW 09/17/2018 [facility] DATE: 09/17/2018 3:00 CDT Center INDICATION: Tube placement/removal/reposition - atlectasis COMPARISON: 09/15/2017 TECHNIQUE: AP chest. FINDINGS: Feeding tube has been removed. Left upper extremity PICC and TAX EXAMINER shunt remains in position. Persistent small left pleural effusion. Stable cardiomediastinal silhouette. Subsegmental atelectasis and bilateral lower lobes, greater on the left. Thin -walled cyst in the left lower lobe is unchanged. IMPRESSION: 1. Feeding tube has been removed. 2. Persistent small left pleural effusion and bibasilar subsegmental atelectasis. 3. Thin-walled cyst in the left lower lobe. Esophagus BA swallow EXAM: FLUOROSCOPY MODIFIED BARIUM SWALLOW 09/16/2018 [facility] video DX DATE: 09/16/2018 at 1349 hours Center INDICATION: Dysphagia - [place] [facility] [place] [facility] 09/08/18. COMPARISON: 09/08/2018 modified barium swallow. TECHNIQUE: Oral barium contrast of differing consistencies was given to the patient to assess swallowing mechanism. The study was performed in conjunction with speech pathology. FLUOROSCOPY TIME: 1 minute 29 seconds SKIN DOSE: 11.51 mGy DISCUSSION: The patient was given barium contrast of different consistencies. Thin barium: Deep, silent penetration.. [place] barium: Normal. Pudding barium: Pooling into the vallecula.. Solid with barium: Pooling into the vallecula.. IMPRESSION: 1. Deep, silent penetration with thin consistency barium contrast. 2. No penetration or aspiration observed with nectar consistency barium contrast. 3. Pooling into the vallecula seen with pudding and solid consistency barium contrast. 4. Please also see detailed chart note by speech pathology. Chest 1view DX EXAM: XR CHEST 1 VIEW 09/15/2018 [facility] DATE: 09/15/2018 3:00 CDT Center INDICATION: - intubated COMPARISON: Chest x-ray 09/14/2018 TECHNIQUE: AP chest. FINDINGS: Lines, tubes and hardware: Unchanged positioning of life support catheters. Lungs and pleura: The left costophrenic sulcus remains blunted. Linear opacities of the left lower lung have decreased. Left lower lobe pulmonary air cyst is better demonstrated on CT. There is no pneumothorax. Heart and mediastinum: Heart size is unchanged. Atherosclerotic calcifications are seen in the arch of the aorta. Pulmonary vascularity is normal. Bones: No acute abnormality. IMPRESSION: 1. Stable catheter positioning. 2. Persistent left pleural effusion with decreased basilar atelectasis. Chest 1view DX EXAM: XR CHEST 1 VIEW 09/14/2018 [facility] DATE: 09/14/2018 3:00 CDT Center INDICATION: - Intubated. FINDINGS: Comparison is made to September 13. Cardiomediastinal silhouette is unchanged, with aortic calcification. Life support lines and tubes remain in place. There are surgical clips in the right upper quadrant of the abdomen. Persistent small left pleural effusion. There is subsegmental atelectasis in the bilateral lower lobes, greater on the left. Again seen is a thin-walled pulmonary air cyst in the left lower lobe measuring 34 x 27 mm. IMPRESSION: 1. Small left pleural effusion. 2. Bilateral lower lobe subsegmental atelectasis, greater on the left. 3. Again noted is a pulmonary air cyst in the left lower lobe. Abdomen/Pelvis w IV EXAM: CT ABDOMEN AND PELVIS WITH CONTRAST 09/13/2018 [facility] contrast CT DATE: 09/13/2018 10:29 CDT Center INDICATION: - concern for a myeloproliferative neoplasm ADDITIONAL INFORMATION: None. COMPARISON: KUB 09/12/2018 TECHNIQUE: Volumetric CT acquisition of the abdomen and pelvis after the intravenous administration contrast. Axial, coronal and sagittal reconstructions. IV CONTRAST: 99 mL of Visipaque 320 ORAL CONTRAST: None RADIATION DOSE: Total DLP: 2766 mGy*cm (including chest CT) Estimated effective dose: DLP x 0.015 mSv COMPLICATIONS: None FINDINGS: Lines and tubes: Enteric tube with tip at the gastric antrum. Right upper quadrant surgical clips. TAX EXAMINER shunt catheter tip at the lower central mesentery. Lower thorax: Please see concurrent chest CT report for more details of thoracic findings. Prominent mesogastric fat. Liver: Heterogeneous appearance. No focal hepatic lesions. Biliary tree: Postcholecystectomy changes. Gallbladder: Absent. Pancreas: Atrophic pancreas. No ductal dilatation. No focal lesions. Spleen: No splenomegaly or focal lesions. Adrenals: No nodules. Kidneys and ureters: Bilateral kidneys with symmetrical enhancement. Mild perinephric stranding. Some contrast excretion into the renal collecting systems in the delayed phase. No hydronephrosis or renal stones. Bilateral renal hypodensities likely cysts. No hydroureter. Bladder: Distended. No radiopaque stones. Reproductive organs: Anteflexed uterus. Suggestion of a posterior body intramural fibroid measuring 1.3 cm. No large adnexal lesions. Gastrointestinal tract: Stomach: Stomach underdistended. No gastric outlet obstruction.. Small intestines: No obstruction or dilatation. Colon: Retained contrast within the cecum and ascending colon and small bowel within the descending and sigmoid colon from recent modified barium study. No colonic obstruction. Peritoneum and retroperitoneum: Normal caliber (series 12 B image 20 and series 13 B image 31). No paraspinal masses are identified. Lymph nodes: No significant retroperitoneal or pelvic lymphadenopathy. Vasculature: Aorta and branches: Normal caliber abdominal aorta and IVC. Moderate vascular calcifications of the abdominal aorta and branches. Aortic visceral branches opacified. IVC and branches: Normal caliber. IVC and branches opacified. Portal system: Opacified. Bones: Degenerative changes of the thoracolumbar spine. No significant mottle appearance of the bones. Soft tissues: Thinning of the linea alba. Small fat-containing umbilical hernia. IMPRESSION: 1. No paraspinal masses or significant lymphadenopathy within the abdomen or pelvis. 2. No splenomegaly. 3. No paraspinal mass. 4. No significant mottle appearance of the bones. However, MR can offer a more sensitive evaluation of the bone marrow. 5. Heterogeneous enhancement of the liver could relate to timing of underlying parenchymal disease. 6. Postcholecystectomy changes. 7. No bowel obstruction. 8. Bilateral renal cysts. 9. Please concurrent chest CT report for more details of thoracic findings. Chest w contrast CT EXAM: CT CHEST WITH CONTRAST 09/13/2018 [facility] DATE: 09/13/2018 10:28 CDT Center INDICATION: - lung nodules TECHNIQUE: Volumetric CT acquisition of the chest, following intravenous contrast. Axial, sagittal and coronal reconstructions. Axial MIP reconstructions are created at the acquisition workstation. IV Contrast: 100 mL of Visipaque 320. DLP: 971 mGy-cm COMPARISON: 08/18/2018 FINDINGS: Lines and Tubes: Endotracheal tube with tip well above the jennifer. Feeding tube is adequate in position. Left upper extremity PICC with tip terminates in the proximal SVC. Lower Neck: The visible portions of the lower neck and thyroid are unremarkable. Heart and Great Vessels: No cardiomegaly. No pericardial effusion. No coronary calcifications. Aortic atherosclerotic disease. 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 Lymph Nodes: No hilar, mediastinal, axillary or internal mammary lymphadenopathy. Lungs: Bilateral lower lobar subsegmental plate like atelectatic changes as well as scarring associated with the right lower lobar cyst formation. Mosaic attenuation is seen in both lungs. Innumerable bilateral small pulmonary nodules are seen bilaterally measuring up to 3 mm in size; for example in the right upper lobe (MIP image 34). These nodules are stable compared to the previous chest CT dated 08/18/2018. Pleura: No pleural effusions. No pneumothorax. Upper abdomen: Please refer to separate report of the concomitantly performed CT abdomen and pelvis for findings below the diaphragm. Bones and Soft Tissues: Degenerative changes of the thoracic spine. No acute osseous abnormalities. No destructive focal osseous lesions. Diffuse osteopenic changes of the examined bones. IMPRESSION: 1. Innumerable bilateral small pulmonary nodules are noted measuring up to 3 mm in size, stable since 08/18/2018. Follow-up recommendation as below. 2. Mosaic attenuation seen in both lungs suggestive of small airway disease ; for example infectious or inflammatory bronchiolitis. 3. Bilateral lower lobar subsegmental platelike atelectatic changes associated with fibrotic changes notably in the left lower lobe. Left lower lobar large cyst or pneumatocele. 4. 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 RECOMMENDATIONS: If there is history of primary neoplastic process, chest CT follow-up in 3 months is recommended. If there is no history of primary neoplastic process, follow-up per Fleischner criteria : The Maureen Society guidelines for nodules measuring up to 6 mm in size is as follows: If this patient is a low risk patient (nonsmoker and no known tumor or risk factors thereof), then no further f ollow-up is needed. However, in a high risk patient (history of smoking or other known risk factors), then a repeat chest CT is optional in 12 months and, if unchanged, then no further follow-up is needed. Brain w/wo contrast EXAM: MRI BRAIN WITH AND WITHOUT CONTRAST 09/13/2018 [facility] MRI DATE: 09/13/2018 at 0221 hours. Center INDICATION: Cranial nerve palsy/palsies - Please do thin cuts. We are concerned about meningioma recurrence with skull base involvement. Patient w/ CN 2,7,9,10 deficits ADDITIONAL INFORMATION: 73 year old female with meningioma resection in the past COMPARISON: MR brain exams 08/16/2018, 07/07/2012. TECHNIQUE: Multiplanar, multisequence MRI of the brain with and without intravenous contrast. IV contrast: None. FINDINGS: There is no acute intracranial infarct or recent hemorrhage. Postoperative changes of right frontal craniotomy and right frontotemporal lobe encephalomalacia from remote right frontal mass resection are redemonstrated. Left transfrontal ventricular shunt in place. No evidence of hydrocephalus. Pachymeningeal enhancement seen primarily over the frontal convexities is unchanged and likely a consequence of the presence o f the shunt. No findings of intracranial hypotension are present. 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 AP diameter is now up to 2.4 cm, previously 2.1 cm. 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 AP diameter is now up to 2.4 cm, previously 2.1 cm. 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 The lesion also surrounds the optic nerves as they exit from the orbital apices bilaterally. No cranial nerve enhancement or compressive lesion of the lower cranial nerves is detected to account for the patient's clinical findings. Chest 1 v for EXAM: XR CHEST 1 VIEW 09/13/2018 [facility] Placement DX DATE: 09/13/2018 3:00 CDT Center INDICATION: Tube placement - ETT placement COMPARISON: 08/31/2018 TECHNIQUE: AP chest IMPRESSION: 1. Interval placement of endotracheal tube with tip terminates 2 cm above the jennifer. Interval placement of feeding tube with adequate positioning. Again seen is left upper extremity PICC with stable p osition. Left sided TAX EXAMINER shunt is stable in position. 2. Small left pleural effusion with left basilar atelectatic changes. No new lung lesions identified. 3. Cardiomediastinal silhouette is enlarged, unchanged. Aortic atherosclerotic disease. 4. Osseous structures are stable. Abdomen AP DX EXAM: XR ABDOMEN 1 VIEW 09/12/2018 [facility] DATE: 09/12/2018 20:16 CDT Center INDICATION: - for [place] placement COMPARISON: 09/12/2018, 1820 hours TECHNIQUE: Limited AP view of the abdomen for tube placement assessment. Number of images: 3 FINDINGS: Transesophageal feeding tube tip seen overlying the distal stomach in the final 3rd image. Transesophageal suction tube: None. Other tubes and lines: Unchanged. No other changes. IMPRESSION: Tube positions as above. Abdomen AP DX EXAM: XR ABDOMEN 1 VIEW 09/12/2018 [facility] DATE: 09/12/2018 17:42 CDT Center INDICATION: - [place] placement COMPARISON: 03/14/2011 TECHNIQUE: Limited AP view of the abdomen for tube placement assessment. Number of images: 1 FINDINGS: Transesophageal feeding tube tip in the proximal stomach and needs to be further advanced. Transesophageal suction tube: None. Other tubes and lines: A TAX EXAMINER shunt catheter noted. No other changes. IMPRESSION: Tube positions as above. Skull 1 view DX EXAM: XR SKULL 1 VIEW 09/11/2018 [facility] DATE: 09/11/2018 1:02 PM Center INDICATION: TAX EXAMINER shunt, MRI COMPARISON: Skull x-ray from 08/18/2018 TECHNIQUE: A single oblique radiograph of the skull. DISCUSSION: Ventricular catheter with Hakim Codman valve, setting of 140 mm water, without interval change. IMPRESSION: Stable valve setting 140 mm water. Chest 1 v for EXAM: XR CHEST 1 VIEW 09/10/2018 [facility] Placement DX DATE: 09/10/2018 1:51 CDT Center INDICATION: Line Placement - Chest 1 view for line placement COMPARISON: 09/08/2017 TECHNIQUE: AP chest. FINDINGS: Left-sided chest wall TAX EXAMINER shunt is unchanged. Redemonstration of left upper extremity PICC with its tip projecting over the SVC. No new line noted. Stable cardiomediastinal silhouette. Low lung volumes w ith bronchovascular crowding and bibasilar subsegmental atelectasis. No pneumothorax. Small bilateral pleural effusions possible. IMPRESSION: 1. Stable life support lines and tubes. No new line noted. 2. Low lung volumes with vascular crowding and bibasilar subsegmental atelectasis. 3. Small bilateral pleural effusions possible. Esophagus BA swallow EXAM: MODIFIED BARIUM SWALLOW WITH SPEECH PATHOLOGY 03/2019 [facility] function video DX DATE: 09/08/2018 12:40 CDT . 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 The swallows abnormal oropharyngeal spaces and frequent nasal regurgitation. Thin barium: Symptomatic aspiration [place]: Symptomatic aspiration IMPRESSION: 1. Some traumatic aspiration with thin and nectar consistencies 2. Pharyngeal stasis with nasal regurgitation 3. Please refer to separate speech pathology report for further detail and recommendations Chest 1 v for Chest 1 v for Placement DX 09/08/2018 9:56 CDT 09/08/2018 [facility] Placement DX HISTORY/INDICATIONS:73 years Female Line Placement - Chest 1 view for line placement COMPARISON: 03/14/2011 FINDINGS: Lung Volume: Low Lungs: No acute airspace infiltrates. Pulmonary vasculature: Normal size Cardiac silhouette: Normal size Mediastinum: Normal size. Visualized skeleton: No obvious fractures Line/tubes/implants: Left PICC line terminates in the SVC. A ventriculoperitoneal shunt catheter running down the left side of the neck and chest. IMPRESSION: No acute airspace infiltrates. Left PICC line terminates in the SVC. [id number] Angiogram cervical PROCEDURE: 08/19/2018 [facility] bilateral VR 1. 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 HISTORY: 73-year-old female patient with past medical history of meningioma of the planum sphenoidale resected in 2010, status post TAX EXAMINER shunt placement. Currently complaining of insidious onset [...] a single wall micropuncture technique and a 5-Barbadian sheath was placed. A 5 -Barbadian Vert catheter was coaxially advanced over a [...] carotid arteries with normal filling of the termite control technician al carotid artery branches. Smooth atheromatous plaques [...] shunting. Of note, there is a round shaped , hypervascular lesion, located in the subcutaneous tissue, [...] any other vascular lesion to explain the patient' s acute neurologic deficit. 2. 50% stenosis of the ophthalmic segment of the left internal carotid artery , likely atherosclerotic in nature. 3. Narrowing of [...] system, without hemodynamically significant stenosis. Skull 1 view DX EXAM: XR SKULL 1 VIEW 08/18/2018 [facility] DATE: 08/18/2018 17:56 CDT Center INDICATION: - post, Codman view COMPARISON: 08/17/2018 TECHNIQUE: AP and lateral radiographs of the skull DISCUSSION: A Codman valve set at 140 mm H2O is demonstrated, which represent a slight decrease in the pressure setting as compared to the examination obtained one day prior. IMPRESSION: Minimal change in the setting of the Codman valve, now at 140 mm H2O. Brain wo contrast EXAM: MRI BRAIN WITHOUT CONTRAST 08/18/2018 [facility] MRI EXAM: MRI ORBITS WITHOUT CONTRAST. Center DATE: 08/18/2018 INDICATION: Left-sided anisocoria and ptosis, left cranial nerve palsy Clinical history: 73-year-old female with history of right frontal craniotomy for planum sphenoidale meningioma resection in 2010, with subsequent left frontal ventriculoperitoneal shunt placement. Pres enting with 5 day history of left eye anisocoria and ptosis with slow speech. COMPARISON: 08/18/[address]; 08/16/2018 CT head; 08/16/2018 CTA head/neck ; 07/07/2012 MRI brain, 07/20/2010 MRI brain, 01/23/2011 [...] diffusion to suggest acute infarct. No abnormal extra- axial fluid collection, mass effect, or midline shift [...] the patient is prone to reactive bone formation). Contrast-enhanced study would be helpful to further evaluate, which of the abnormality represents residual/recurrent meningioma. Narrowing of the supraclinoid right internal carotid artery as it traverses the hyperostotic changes is redemonstrated. Unchanged right frontal and right temporal cystic encephalomalacia with adjacent gliosis. Unchanged ventricular caliber and position of left frontal ventriculostomy. Orbit wo contrast EXAM: MRI BRAIN WITHOUT CONTRAST 08/18/2018 [facility] MRI EXAM: MRI ORBITS WITHOUT CONTRAST. Center DATE: 08/18/2018 INDICATION: Left-sided anisocoria and ptosis, left cranial nerve palsy Clinical history: 73-year-old female with history of right frontal craniotomy for planum sphenoidale meningioma resection in 2010, with subsequent left frontal ventriculoperitoneal shunt placement. Pres enting with 5 day history of left eye anisocoria and ptosis with slow speech. COMPARISON: 08/18/[address]; 08/16/2018 CT head; 08/16/2018 CTA head/neck ; 07/07/2012 MRI brain, 07/20/2010 MRI brain, 01/23/2011 [...] diffusion to suggest acute infarct. No abnormal extra- axial fluid collection, mass effect, or midline shift [...] the patient is prone to reactive bone formation). Contrast-enhanced study would be helpful to further evaluate, which of the abnormality represents residual/recurrent meningioma. Narrowing of the supraclinoid right internal carotid artery as it traverses the hyperostotic changes is redemonstrated. Unchanged right frontal and right temporal cystic encephalomalacia with adjacent gliosis. Unchanged ventricular caliber and position of left frontal ventriculostomy. Neck soft tissue w EXAM: CT NECK WITH CONTRAST 08/18/2018 [facility] contrast CT DATE: 08/18/2018 7:19 CDT Center INDICATION: eft-sided Brendan's syndrome. Please start scan [...] 4. Ventricular shunt catheter in place. Esophagus BA swallow EXAM: FLUOROSCOPY MODIFIED BARIUM SWALLOW 08/18/2018 [facility] function video DX DATE: 08/18/2018 7:00 [facility] Center INDICATION: - swallow. ADDITIONAL INFORMATION: None. COMPARISON: [...] chart note by speech pathology. Chest w contrast CT EXAM: CT CHEST WITH CONTRAST 08/17/2018 [facility] DATE: 08/17/2018 17:07 T Center INDICATION: eft-sided Brendan's syndrome. Please start scan [...] and Tubes: Left sided, anterior chest wall TAX EXAMINER shunt is noted. Lower Neck: Please refer [...] the neck findings. 7. Aortic atherosclerotic disease. Skull 2 views DX Exam: Radiographs of the skull for shunt setting. 2018 [facility] HISTORY: Evaluate shunt setting. Comparison with radiographs from August 19, 2011. TECHNIQUE: 3 views of the skull were obtained. FINDINGS: A Codman valve is placed, the shunt valve setting is approximately 150 cc of water. FINDINGS: Radiographs for shunt valve setting. Brain/Neck CTA Exam: CTA HEAD AND NECK 08/16/2018 [facility] DATE: 08/16/2018 7:42 PM CDT Center INDICATION: - stroke symptoms COMPARISON: CT brain [...] arteries and basilar artery are patent. Both home organizer are patent. Nonflow limiting stenot ic lesions in the left P2 and right P3-P4 segment. No AV malformation or aneurysms. IMPRESSION: Atheromatous disease in the carotid bulbs not resulting in significant stenosis by NASCET criteria. Greater than 50% stenosis in the para and supraclinoid right internal carotid artery. No flow-limiting stenotic lesions in both home organizer. Aberrant right subclavian artery Qualitative and quantitative assessments of stenosis in the carotid bulbs is made referencing the distal internal carotid artery Brain wo contrast CT EXAM: CT BRAIN WITHOUT CONTRAST 08/16/2018 [facility] DATE: 08/16/2018 4:26 PM CDT Center INDICATION: - stroke symptoms COMPARISON: 08/20/2011 TECHNIQUE: [...] up to 2.4 cm, previously 2.1 cm. Consultation Notes No Data Provided for This Section Discharge Summaries No Data Provided for This Section History and Physicals No Data Provided for This Section Vital Signs Vital Sign Value Date Comments Source Temperature Oral (F) 98.8 F 11/29/2018 [facility] Heart Rate 78 11/29/2018 [facility] Systolic (mm Hg) 174 11/29/2018 [facility] Diastolic (mm Hg) 74 11/29/2018 [facility] Respitory Rate 20 11/29/2018 [facility] Systolic (mm Hg) 190 11/29/2018 [facility] Diastolic (mm Hg) 79 11/29/2018 [facility] Height 149.86 cm 11/29/2018 [facility] BMI Calculated 45.54 11/29/2018 [facility] Weight 102.273 11/29/2018 [facility] Systolic (mm Hg) 163 11/29/2018 [facility] Diastolic (mm Hg) 83 11/29/2018 [facility] Center Respitory Rate 20 11/29/2018 [facility] Heart Rate 80 11/29/2018 [facility] Temperature Oral (F) 98.7 F 11/29/2018 [facility] Systolic (mm Hg) 139 09/23/2018 [facility] Center Diastolic (mm Hg) 66 09/23/2018 [facility] Respitory Rate 18 09/23/2018 [facility] Temperature Oral (F) 97.8 F 09/23/2018 [facility] Heart Rate 70 09/23/2018 [facility] Temperature Oral (F) 97.2 F 09/23/2018 [facility] Heart Rate 66 09/23/2018 [facility] Systolic (mm Hg) 147 09/23/2018 [facility] Diastolic (mm Hg) 63 09/23/2018 [facility] Respitory Rate 18 09/23/2018 [facility] Systolic (mm Hg) 147 09/23/2018 [facility] Center Diastolic (mm Hg) 53 09/23/2018 [facility] Respitory Rate 18 09/23/2018 [facility] Heart Rate 67 09/23/2018 [facility] Temperature Oral (F) 98.3 F 09/23/2018 [facility] BMI Calculated 40.88 09/21/2018 [facility] Weight 91.818 09/21/2018 [facility] Temperature Oral (F) 98.1 F 09/20/2018 [facility] Temperature Oral (F) 97.9 F 09/20/2018 [facility] Respitory Rate 30 09/20/2018 [facility] Systolic (mm Hg) 174 09/20/2018 [facility] Diastolic (mm Hg) 74 09/20/2018 [facility] Respitory Rate 27 09/20/2018 [facility] Systolic (mm Hg) 167 09/20/2018 [facility] Diastolic (mm Hg) 70 09/20/2018 [facility] Temperature Oral (F) 97.5 F 09/20/2018 [facility] Respitory Rate 35 09/20/2018 [facility] Systolic (mm Hg) 175 09/20/2018 [facility] Diastolic (mm Hg) 71 09/20/2018 [facility] Height 149.86 cm 09/15/2018 [facility] Height 149.86 cm 09/15/2018 [facility] Height 149.86 cm 09/15/2018 [facility] Heart Rate 101 09/11/2018 [facility] Heart Rate 98 09/11/2018 [facility] Heart Rate 95 09/11/2018 [facility] Respitory Rate 19 09/10/2018 [facility] Systolic (mm Hg) 161 09/10/2018 [facility] Diastolic (mm Hg) 101 09/10/2018 [facility] Respitory Rate 16 09/10/2018 [facility] Systolic (mm Hg) 148 09/10/2018 [facility] Diastolic (mm Hg) 67 09/10/2018 [facility] Systolic (mm Hg) 121 09/09/2018 [facility] Diastolic (mm Hg) 54 09/09/2018 [facility] Respitory Rate 15 09/09/2018 [facility] BMI Calculated 41.99 09/08/2018 [facility] Height 149.86 cm 09/08/2018 [facility] Weight 94.3 09/08/2018 [facility] Systolic (mm Hg) 110 08/20/2018 [facility] Diastolic (mm Hg) 66 08/20/2018 [facility] Respitory Rate 33 08/20/2018 [facility] Temperature Oral (F) 98.0 F 08/20/2018 [facility] Temperature Oral (F) 97.9 F 08/19/2018 [facility] Respitory Rate 20 08/19/2018 [facility] Temperature Oral (F) 97.8 F 08/19/2018 [facility] Systolic (mm Hg) 138 08/19/2018 [facility] Diastolic (mm Hg) 76 08/19/2018 [facility] Respitory Rate 18 08/19/2018 [facility] Systolic (mm Hg) 144 08/19/2018 [facility] Diastolic (mm Hg) 63 08/19/2018 [facility] Heart Rate 92 08/19/2018 [facility] Heart Rate 72 08/18/2018 [facility] Heart Rate 70 08/18/2018 [facility] BMI Calculated 49.69 08/17/2018 [facility] Height 149.86 cm 08/17/2018 [facility] Weight 111.6 08/17/2018 [facility] Weight 113.636 08/16/2018 [facility] Height 152.4 cm 08/16/2018 [facility] BMI Calculated 48.93 08/16/2018 [facility] Diastolic (mm Hg) 60.0 03/25/2011 [facility] Systolic (mm Hg) 151.0 03/25/2011 [facility] Temperature Oral (F) 97.6 F 03/25/2011 [facility] Heart Rate 87.0 03/25/2011 [facility] Respitory Rate 20.0 03/25/2011 [facility] Temperature Oral (F) 97.8 F 03/25/2011 [facility] Respitory Rate 20.0 03/25/2011 [facility] Heart Rate 98.0 03/25/2011 [facility] Systolic (mm Hg) 163.0 03/25/2011 [facility] Diastolic (mm Hg) 82.0 03/25/2011 [facility] Diastolic (mm Hg) 68.0 03/25/2011 [facility] Systolic (mm Hg) 156.0 03/25/2011 [facility] Temperature Oral (F) 97.7 F 03/25/2011 [facility] Heart Rate 95.0 03/25/2011 [facility] Respitory Rate 20.0 03/25/2011 [facility] Weight 90.909 03/22/2011 [facility] Height 149.86 cm 03/22/2011 [facility] Weight 90.909 03/22/2011 [facility] Height 149.86 cm 03/22/2011 [facility] Diastolic (mm Hg) 56.0 03/15/2011 [facility] Systolic (mm Hg) 128.0 03/15/2011 [facility] Respitory Rate 16.0 03/15/2011 [facility] Heart Rate 85.0 03/15/2011 [facility] Temperature Oral (F) 96.6 F 03/15/2011 [facility] Diastolic (mm Hg) 91.0 03/15/2011 [facility] Systolic (mm Hg) 121.0 03/15/2011 [facility] Respitory Rate 18.0 03/15/2011 [facility] Heart Rate 78.0 03/15/2011 [facility] Temperature Oral (F) 98.2 F 03/15/2011 [facility] Diastolic (mm Hg) 39.0 03/15/2011 [facility] Systolic (mm Hg) 170.0 03/15/2011 [facility] Respitory Rate 18.0 03/15/2011 [facility] Temperature Oral (F) 98.0 F 03/15/2011 [facility] Heart Rate 93.0 03/15/2011 [facility] Weight 83.665 03/14/2011 [facility] Height 149.86 cm 03/14/2011 [facility] Heart Rate 97.0 03/07/2011 [facility] Respitory Rate 20.0 03/07/2011 [facility] Systolic (mm Hg) 140.0 03/07/2011 [facility] Diastolic (mm Hg) 66.0 03/07/2011 [facility] Temperature Oral (F) 98.4 F 03/07/2011 [facility] Diastolic (mm Hg) 69.0 03/07/2011 [facility] Systolic (mm Hg) 140.0 03/07/2011 [facility] Respitory Rate 20.0 03/07/2011 [facility] Temperature Oral (F) 98.6 F 03/07/2011 [facility] Heart Rate 115.0 03/07/2011 [facility] Systolic (mm Hg) 131.0 03/06/2011 [facility] Temperature Oral (F) 97.6 F 03/06/2011 [facility] Respitory Rate 18.0 03/06/2011 [facility] Heart Rate 104.0 03/06/2011 [facility] Diastolic (mm Hg) 44.0 03/06/2011 [facility] Height 149.86 cm 02/26/2011 [facility] Weight 90.909 02/26/2011 [facility] Temperature Oral (F) 98.2 F 02/26/2011 [facility] Heart Rate 90.0 02/26/2011 [facility] Respitory Rate 18.0 02/26/2011 [facility] Systolic (mm Hg) 154.0 02/26/2011 [facility] Diastolic (mm Hg) 54.0 02/26/2011 [facility] Temperature Oral (F) 98.9 F 02/26/2011 [facility] Heart Rate 93.0 02/26/2011 [facility] Respitory Rate 18.0 02/26/2011 [facility] Systolic (mm Hg) 153.0 02/26/2011 [facility] Diastolic (mm Hg) 60.0 02/26/2011 [facility] Temperature Oral (F) 98.7 F 02/26/2011 [facility] Respitory Rate 20.0 02/26/2011 [facility] Systolic (mm Hg) 149.0 02/26/2011 [facility] Diastolic (mm Hg) 62.0 02/26/2011 [facility] Heart Rate 95.0 02/25/2011 [facility] Weight 100.0 02/20/2011 [facility] Height 149.86 cm 02/19/2011 [facility] Weight 100.0 02/19/2011 [facility] Heart Rate 104.0 02/19/2011 [facility] Temperature Oral (F) 98.6 F 02/19/2011 [facility] Respitory Rate 20.0 02/19/2011 [facility] Systolic (mm Hg) 128.0 02/19/2011 [facility] Diastolic (mm Hg) 63.0 02/19/2011 [facility] Respitory Rate 20.0 02/19/2011 [facility] Systolic (mm Hg) 115.0 02/19/2011 [facility] Diastolic (mm Hg) 58.0 02/19/2011 [facility] Heart Rate 110.0 02/19/2011 [facility] Temperature Oral (F) 97.5 F 02/19/2011 [facility] Diastolic (mm Hg) 64.0 02/18/2011 [facility] Temperature Oral (F) 98.4 F 02/18/2011 [facility] Heart Rate 108.0 02/18/2011 [facility] Respitory Rate 18.0 02/18/2011 [facility] Systolic (mm Hg) 152.0 02/18/2011 [facility] Height 149.86 cm 01/31/2011 [facility] Weight 100.455 01/31/2011 [facility] Systolic (mm Hg) 116.0 01/31/2011 [facility] Diastolic (mm Hg) 55.0 01/31/2011 [facility] Peripheral Pulse Rate 67.0 01/31/2011 [facility] Respitory Rate 20.0 01/31/2011 [facility] Temperature Oral (F) 98.5 F 01/31/2011 [facility] Peripheral Pulse Rate 65.0 01/31/2011 [facility] Systolic (mm Hg) 148.0 01/31/2011 [facility] Diastolic (mm Hg) 58.0 01/31/2011 [facility] Diastolic (mm Hg) 62.0 01/31/2011 [facility] Peripheral Pulse Rate 64.0 01/31/2011 [facility] Systolic (mm Hg) 153.0 01/31/2011 [facility] Respitory Rate 21.0 01/31/2011 [facility] Temperature Oral (F) 97.8 F 01/31/2011 [facility] Respitory Rate 16.0 01/31/2011 [facility] Temperature Oral (F) 98.1 F 01/31/2011 [facility] Height 149.86 cm 01/23/2011 [facility] Weight 89.0 01/23/2011 [facility] Encounters Location Location Encounter Encounter Reason Attending ADM DC Status Source Details Type Number For Provider Date Date Visit [facility] AA [id number] LIFE ANKUR CARABALLO 01/23 01/23 Active [facility] 0 FLIGHT [facility] Inpatient [id number] BRAIN KELLEY DAY 01/23 01/31 Active [facility] 7 MASS/DONNIE [facility] IR [id number] BRAIN MEILANI 01/31 02/19 Active 4 MASS [facility] Inpatient [id number] HYDROCEP KELLEY DAY 02/19 02/26 Active [facility] 0 HALUS [facility] IR [id number] SDH MEILANI 02/26 03/07 Active 9 [facility] OU [id number] DEHYDRAT MI 03/14 03/15 Active [facility] 1 ION KORIMILLI /2010 [facility] Inpatient [id number] DEHYDRAT NOÉ 03/22 03/25 Active [facility] 2 ION,PAIN KINZA /2010 [facility] CONTROL Center [facility] Phone [id number] 08/16 08/18 Julia Neurosurger Message [facility] [id number] Malia 08/16 08/20 [facility] Jorge Alberto 5 Dayan [facility] Inpatient [id number] Sadi 09/09 09/10 [place] 0 [place] [facility] Inpatient [id number] Kasi Amato 09/12 09/20 [facility] Jorge Alberto [facility] Observation [id number] David 09/21 09/23 [facility] Jorge Alberto 3 [place] Outpt Diag [id number] Suur 10/21 10/22 [facility] 3 [place] [facility] Outpt Diag [id number] Suur 11/18 11/19 [facility] [address] [facility] Emergency [id number] Abel 11/29 11/29 [facility] Jorge Alberto 6 Stan [facility] Procedures Procedure Code Date Perfomer Comments Source Selective catheter 81533 08/19/2018 [facility] placement, vertebral Medical artery, unilateral, Center with angiography of the ipsilateral vertebral circulation and all associated radiological supervision and interpretation, includes angiography of the cervicocerebral arch, when performed Insertion or [id number] 01/26/2011 [facility] Replacement of Skull Medical Tongs or [facility] Traction Device Other Excision or [id number] 01/26/2011 [facility] Destruction of Lesion Medical or Tissue of Brain Center Excision of Lesion or [id number] 01/24/2011 [facility] Tissue of Cerebral Medical Meninges [place] Intracranial Pressure 01.10 01/24/2011 [facility] Transfusion of Packed [id number] 01/24/2011 [facility] Cervical laminectomy [id number] [facility] section [id number] [facility] Resection [id number] [facility] Shunt construction [id number] [facility] Tonsillectomy [id number] [facility] Cervical laminectomy [id number] [facility] section [id number] [facility] Resection [id number] [facility] Shunt construction [id number] [facility] Tonsillectomy [id number] [facility] Cervical laminectomy [id number] [facility] section [id number] [facility] Resection [id number] [facility] Shunt construction [id number] [facility] Tonsillectomy [id number] [facility] Cervical laminectomy [id number] [facility] section [id number] [facility] Resection [id number] [facility] Shunt construction [id number] [facility] Tonsillectomy [id number] [facility] Assessment and Plan Assessment and Plan Date Source Extracted from:Title: Neurology Discharge Summary 09/20/2018 [facility] Author: Sean Coy MD Date: 09/19/18 INPATIENT NEUROLOGY DISCHARGE SUMMARY Patient Name: Franci Lange Date of Admission: 09/12/18 Date of Discharge: 09/19/18 Admission Diagnosis: Weakness, Dysphagia Discharge Diagnoses: Bulbar Myasthenia Gravis Consults Obtained: Opthalmology, ENT Brief HPI: Mrs. Lange is a 73 y.o. 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 She is uncooperative with questions so most of the history is given by her . He reports that she developed progressive dysphagia over the past few week s, with significant worsening over the past few days which culminated in her choking on a single piece of meat at a restaurant before going to the outside hospital. There, she also complained of intermi ttent vision loss and pain in her left eye so ophthalmology evaluated her and had concerns for HSV keratitis and started her on acyclovir. She denies difficulty breathing, weakness, numbness, any pain a t this time. She denies feeling a worsening of her difficulty swallowing towards the end of the day. denies and worsening of her facial drooping towards the end of the day. She failed MBS and sp eech evaluation at outside hospital prior to transfer. Hospital Course: The patient was admitted to our service with complaints of weakness and dysphagia. EMG and clinical exam were consistent with myasthenia. The patient refused alex placement for PLEX, preferred IVIG even though the the risks and benefits were explained to her, including that the PLEX would be more fast acting and effective. IVIg started . Respiratory status continuing to declin e. She is adamantly refusing feeding tube placement. The patient initially refused elective intubation, but later she agreed to it after rounds in the AM. She did refuse intubation once anesthesia arr ived; also declined chest compressions and was briefly made DNR/DNI. Her respiratory status continued to decline with NIF -10, FVC 0.2- changed her mind to become full code now and agreed for intubation . Mestinon and prednisone were started once anti-striated muscle antibodies came back positive. Resipratory status improved to FVC 0.95, and the patient was extubated. The patient was able to tolerate a dysphagia diet and was recommended to go home with outpatient PT/OT. On patient neurological exam stable and patient deemed to be good candidate for discharge to home. Our work up was as follows: CTA H&N 08/19: greater than 50% stenosis in the right internal carotid artery. Cerebral arteriography from 08/19/2018 reveals no aneurysm. There is 50% stenosis of the ophthalmic segment of the left internal carotid artery, likely atherosclerotic in nature. MRI brain and orbit 08/18: bilateral narrowing of the orbital apices including the optic canals and superior orbital fissures. These changes are due to residual intraosseous meningioma. CT chest 08/18: IMPRESSION: 1. Multiple bilateral centrilobular patchy and [...] the neck findings. 7. Aortic atherosclerotic disease. 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 AP diameter is now up to 2.4 cm, previously 2.1 cm. 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 The lesion also surrounds the optic nerves as they exit from the orbital apices bilaterally. No cranial nerve enhancement or compressive lesion of the lower cranial nerves is detected to account for the patient's clinical findings. Discharge Physical Examination: Vitals Tmp(F) Tmp(C) Ttype BP MAP Pulse RR 09/19 10:00 ---- ---- ---- 175/71 102 70 19 94 --- 09/19 09:00 ---- ---- ---- 186/87 125 63 23 98 --- 09/19 08:45 ---- ---- ---- ----- --- --- 16 98 --- --- 09/19 08:00 96.7 35.94 axil 136/60 87 64 24 95 09/19 07:00 ---- ---- ---- 134/57 82 56 23 95 --- GENERAL: awake and oriented x3 HEENT: Atraumatic, dry mucous membranes LUNGS: YANE CV: equal pulses bilaterally. ABDOMEN: Soft, nondistended, normoactive bowel sounds NEURO: Mental Status: awake and oriented x3 Language: still mild hypophonia, able to count >25 Cranial Nerves: PERRL 4 mm. EOMI, visual nielsen full, nofacial asymmetry however patient with bilateral fatigable ptosis and lower facial weakness, facial sensation intact, hearing intact, tongue midlin e, uvula/soft palate weak on the right, normal sternocleidomastoid and trapezius muscle strength. No evidence of tongue atrophy or fibrillations. Motor: neck flexion 4/5 fatigable, shoulder flexion 4+/5 fatigues to 4-/5; 4/5 b/l iliopsoas fatigues to 4-/5; 5/5 distally Tone: is intact and bulk is normal Sensation: Intact to light touch bilaterally Coordination: intact to FTN and HTS Gait: intact Final Diagnosis: Bulbar Myasthenia Gravis Discharge Medications: See HMR for full list of medications. Patient is provided with this list at discharge. Discharge Diet: Dyspagia Diet with nectar thick liquids Follow up and Important Plans for Future Care: [facility] up [facility]. Please call . Clinic located at [address] [place] [address], [address] [place], [place] [address]. PCP follow-up within 2 weeks Discharge Instructions: Please continue to take all medications as prescribed and follow up as intstructed. 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 Discharge To Location: Home Please call our nurse coordinator at [phone] if you have any questions/ concerns. Thank you, [facility] Extracted from:Title: Neurology Progress Note Author: Sanchez La MD Date: 09/18/18 General Neurology Progress Note Patient: Franci Lange Overnight events: No acute events overnight. Hospital course: EMG and clinical exam consistent with myasthenia. Antibodies pending. Patient refused alex placement for PLEX, preferred IVIG treatment even though the the associated risks and benef its were explained to her, including that the PLEX would be more fast acting and effective. IVIg started 09/10. Respiratory status continuing to decline. She is adamantly refusing feeding tube placement. 09/12: Elective intubation was discussed with her, and though she intially refused, she agreed to it after rounds in the AM. However, she changes her mind often, and may refuse again. She did refuse intubation once anesthesia arrived; also declined chest compressions and was briefly made DNR/DNI. Her respiratory status continued to decline with NIF -10, FVC 0.2- changed her mind to become full code now and agreed for intubation. 09/13: started mestinon and prednisone. FCV 0.5. 09/15: improving, FVC 0.95, extubated 09/16: still in the ICU for close monitor of respiratory status 09/17: started dysphagia diet, transfer to [facility]. PT/OT recommended home with 09/18 patient continues to do well, if patient continues to do well tomorrow, patient may be able to discharge home. Chief Complaint: difficulty swallowing History of Present Illness: Mrs. Lange is a 73 y.o. 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 She is uncooperative with questions so most of the history is given by her . He reports that she developed progressive dysphagia over the past few week s, with significant worsening over the past few days which culminated in her choking on a single piece of meat at a restaurant before going to the outside hospital. There, she also complained of intermi ttent vision loss and pain in her left eye so ophthalmology evaluated her and had concerns for HSV keratitis and started her on acyclovir. She denies difficulty breathing, weakness, numbness, any pain a t this time. She denies feeling a worsening of her difficulty swallowing towards the end of the day. denies and worsening of her facial drooping towards the end of the day. She failed MBS and sp eech evaluation at outside hospital prior to transfer. Review of Systems: GEN: no fever, chills, weight loss, fatigue EYES: per HPI CARDIO: no chest pain, palpitations PULM: no shortness of breath, cough GI: no nausea, vomiting, diarrhea, no abd pain : no frequency, dysuria, hematuria NEURO: see HPI SKIN: no rash or lesion MSK: no pain, swelling, redness, no weakness LYMPH/IMMUNO: No lymph node enlargement/tenderness, no heat/cold intolerance Past Medical History: HTN, HLD, DM Past Surgical History: meningioma resection, TAX EXAMINER shunt, left eye cataract surgery Family Medical History: no family history of neuromuscular disorders Social History: Denies alcohol, drugs, or tobacco use. Medications: ramipril, amlodipine, furosemide, clopidogrel, rosuvastatin, metoprolol, ropinirole, insulin Allergies: cefepime, ciprofloxacin, cortisone, erythromycin, penicillin, phenobarbital, aspirin Physical Exam: Vitals Tmp(F) Tmp(C) Ttype BP MAP Pulse RR SpO2 FIO2 ETCO2 09/18 10:00 ---- ---- ---- 136/66 91 58 22 99 --- --- 09/18 09:00 ---- ---- ---- 154/87 113 57 20 97 --- --- 09/18 08:00 97.1 36.17 oral 164/91 122 57 19 98 --- --- 09/18 07:00 ---- ---- ---- 114/59 83 56 -- 96 --- --- 09/18 06:00 ---- ---- ---- 106/52 75 50 22 95 --- --- GENERAL: awake and oriented x3 HEENT: Atraumatic, dry mucous membranes LUNGS: YANE CV: equal pulses bilaterally. ABDOMEN: Soft, nondistended, normoactive bowel sounds NEURO: Mental Status: awake and oriented x3 Language: still mild hypophonia, able to count >25 Cranial Nerves: PERRL 4 mm. EOMI, visual nielsen full, nofacial asymmetry however patient with bilateral fatigable ptosis and lower facial weakness, facial sensation intact, hearing intact, tongue midlin e, uvula/soft palate weak on the right, normal sternocleidomastoid and trapezius muscle strength. No evidence of tongue atrophy or fibrillations. Can only vount till 20 in one breath Motor: neck flexion 4/5 fatigable, shoulder flexion 4+/5 fatigues to 4-/5; 4/5 b/l iliopsoas fatigues to 4-/5; 5/5 distally Tone: is intact and bulk is normal Sensation: Intact to light touch bilaterally Coordination: intact to FTN and HTS Gait: intact Medications (36) Active Scheduled Meds (14): 09/16/18 amLODIPine 10 mg PO Daily 09/11/18 bacitracin ophthalmic 1 appl RIGHT EYE Q4H 09/14/18 docusate (docusate sodium 100 mg oral capsule) 100 mg PO BID 09/11/18 fondaparinux 2.5 mg SUB-Q Daily 09/11/18 furosemide (furosemide 20 mg oral tablet) 20 mg PO Every Other Day 09/16/18 insulin isophane (insulin isophane-NPH) 5 unit SUB-Q Q8H 09/13/18 metoprolol (metoprolol tartrate) 25 mg PO Q12H 09/15/18 polyethylene glycol 3350 (MiraLax) 17 gm GT Daily 09/13/18 predniSONE 60 mg PO Daily 09/12/18 pyridostigmine 60 mg PO Q8Hnow 09/13/18 (Suspended) ramipril 10 mg PO Daily 09/14/18 senna 8.6 mg PO BID 09/13/18 sertraline 25 mg PO Q24H 09/14/18 sodium chloride (Saline Flush 0.9%) 10 ml MISC Q12H Unscheduled Meds (1): 09/10/18 pneumococcal 13-valent vaccine 0.5 mL IM ONCALL PRN Meds (19): 09/17/18 Dextrose 50% in Water IV (Dextrose 50% in Water (bolus) IV) 12.5 gm IVP PRN 09/17/18 Dextrose 50% in Water IV (Dextrose 50% in Water (bolus) IV) 25 gm IVP PRN 09/17/18 Insulin regular 2 unit SUB-Q TID-Before Meals 09/17/18 Insulin regular 4 unit SUB-Q TID-Before Meals 09/17/18 Insulin regular 6 unit SUB-Q TID-Before Meals 09/17/18 Insulin regular 8 unit SUB-Q TID-Before Meals 09/17/18 Insulin regular 10 unit SUB-Q TID-Before Meals 09/17/18 Insulin regular 1 unit SUB-Q Bedtime 09/17/18 Insulin regular 2 unit SUB-Q Bedtime 09/17/18 Insulin regular 3 unit SUB-Q Bedtime 09/17/18 Insulin regular 4 unit SUB-Q Bedtime 09/14/18 albuterol-ipratropium (DuoNeb inhalation solution) 3 ml NEB PRN 09/17/18 glucagon 1 mg IM PRN 09/11/18 hydrALAZINE 10 mg IV Q4H 09/11/18 labetalol 20 mg IV Q10Min 09/14/18 nystatin topical (nystatin topical 100,000 units/g powder) 1 appl TOP PRN 09/10/18 sodium chloride (Saline Flush 0.9%) 10 ml IVP PRN 09/10/18 sodium chloride (Saline Flush 0.9%) 5 mL IV PRN 09/14/18 sodium chloride (Saline Flush 0.9%) 10 ml IVP PRN One Time Meds (1): 09/18/18 (Discontinued) gabapentin (gabapentin 300 mg oral capsule) 300 mg PO ONCE Continuous Infusions (1): 09/18/18 Sodium Chloride 0.9% IV 1,000 mL (normal saline 0.9% IV 1,000 mL) 1, 000 mL 75 ml/hr Imaging and Diagnostics: CTA H&N 08/19: greater than 50% stenosis in the right internal carotid artery. Cerebral arteriography from 08/19/2018 reveals no aneurysm. There is 50% stenosis of the ophthalmic segment of the left internal carotid artery, likely atherosclerotic in nature. MRI brain and orbit 08/18: bilateral narrowing of the orbital apices including the optic canals and superior orbital fissures. These changes are due to residual intraosseous meningioma. CT chest 08/18: IMPRESSION: 1. Multiple bilateral centrilobular patchy and [...] the neck findings. 7. Aortic atherosclerotic disease. 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 AP diameter is now up to 2.4 cm, previously 2.1 cm. 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 The lesion also surrounds the optic nerves as they exit from the orbital apices bilaterally. No cranial nerve enhancement or compressive lesion of the lower cranial nerves is detected to account for the patient's clinical findings. Assessment: This is a 73 y.o. 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 ABS positive: anti striated muscle antibody -Pulmonary function tests Qshift -IVIg 2g/kg, finished 09/13. -Continue mestinon 60 q8, prednisone 60 mg daily -Discussed case with Dr. Delgado (neuromuscular) who indicated patient will require IVIG q3 weeks (1gr/kg) and then outpatient follow up for possible immunomodulation therapy. ---if patient continues to do well tomorrow, pending PT/OT/PIPING SUPERVISOR recs, the patient may be able to discharge tomorrow. 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 AP diameter is now up to 2.4 cm, previously 2.1 cm. Suprasellar involvement l sebastian to optic chiasm compression. The lesion also surrounds the optic nerves as they exit from the orbital apices bilaterally. No cranial nerve enhancement or compressive lesion of the lower cranial ner ves is detected to account for the patient's clinical findings. 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 ---Optho consulted- opined dry eyes; started lacrilube, bacitracin, artifical tears Depression -sertraline 25 mg daily Lung nodules with mediastinal lymph node involvement- noted on CT in 07/2018 -Will repeat CT chest w contrast -Consult IR vs pulm for potential biopsy Parotid Mass ---ENT consulted for evaluation of parotid mass with concern for neoplastic process on MRI ---They feel it is not related to current presentaiton and can be worked up as an outpatient with follow up with their clinic in 2 weeks. HTN ---Will be careful with metoprolol as this can exacerbate myasthenia symptoms ---On amlodipine 10, ramipril 10, metoprolol succ 100 mg at home ---Will restart amlodipine, ramipril at full dose, metoprolol succ at 50 mg and will titrate as needed. DM ---On oral antihyperglycemics at home and glargine 10 u qam and 20 u qhs- has been noncompliant for a year, oral meds held while inpatient ---SSI History of heparin induced thrombocytopenia ---Will hold heparin SQ, will order SCDS for DVT PPX and consider Xa inhibitor while inpatient. Thrombocytopenia, high Hb ---Hematology consulted, patient has a history of HIT, but recieved no heparin here. Platelets dropping by 20k/d. - JAK2 sent; concern for myeloproliferative neoplasm - CT abd/pelvis neg for splenomegaly but does have hepatic parenchymal disease Diet Dysphagia -- 09/17/18 9:48:00 CDT, Dysphagia Level Dysphagia-Regular, Liquid Consistency Thick Liquids-Consistency [place], No concentrated sweets Oral Supplements -- 09/16/18 14:43:00 CDT, TID Code Status: Full Code.Palliative on board to assist with GOC and code discussions as patient changes her mind frequently. Has indicated that she wants her to be her medical power of employee benefits attorney permanently. He agrees with full code. DVT: fondaparinaux 2.5 subQ Dispo: home with Sanchez La MD Psychiatry PGY1 Addendum by Sean Coy MD on 09/22/2018 00:18 Neurology Attending The patient was seen and examined by me with the resident and I agree with the History/Exam documented. Greater than 30 min was spent in the care of this critical patient Sean Coy MD Extracted from:Title: Supportive Medicine Consult Note Author: Nely Britt MD Date: 09/13/18 The patient is a 73 y.o. 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 Supportive medicine was consulted for goals of care discussion. #Goals of care/palliative -The patient does not have an advanced directive. -CODE STATUS is currently full code. -The next of kin is the patient's [phone]. -Unable to discussgoals of care today since the patient refused jacek seenanddiscussed with us. We will try again tomorrowto see if the patient will bemore open to discuss. -If the patient remains agitated and refusesdiscussions and treatments,she might needcapacity evaluationfor the medical decisions. #Symptom management -Shortness of breath: Currently intubated. -Constipation: The patient did not have any bowel movement since admission. Please start the patient onsenna2 tabletstwice daily,[id number] twice dailyandbisacodyl suppository as neededfor constipation. -Pain: Unable to assesspain severitysince the patient refuses to communicate. #Psychosocial -The patient iscurrently having adjustment disordersecondary tomedical problemsand not being able tocontrol her lifeas she used to be. She would benefit fromcounseling by social work. The patient was seen and discussed with Dr. Forman who formulated the plan above. Thank you for the opportunity to participate in the care of this patient. We will follow along with you. For any questions o r concerns, please page us via the [facility] page vehicle operator technician or via the following pager: [phone], [phone]. Nely Britt MD PGY2 [facility] Internal Medicine ATTENDING ATTESTATION I have personally interviewed and examined this patient with the resident, Dr. Britt on 09/13. I agree with the exam and plans documented in the resident's note above. I have personally reviewed the patient's pertinent labs and radiology results. Upon my visit the patient declined any further discussion by shaking her head. Perfamily in room she is upset today and does not want to discuss anything or answer any questions. All history was obtained from family. Patient appears comfortable on my exam. Goals of care: there has been some back and forth on this as patient was previously DNR/DNI but changed her mind when she developed respiratory failure. Per family shechanges her mindfrequentlyand is qu ite menjivar, and was also told previously that she might have trouble making decisions due to a previous surgery for meningioma. Capacity assessment will need to bedoneifpatient is to participate in decis ionmaking in the future. The patient currently declines to have a discussion today, however. Per family we should return tomorrow to try again. We will do so. Dyspnea: secondary to respiratory failure. eGFR is borderline for morphine use. Would consider fentanyl 10 or 25 mcg IVas first choiceif opioids are needed fordyspnea. Constipation: Goal for daily bowel movement. Recommend senna 1 to 4 tablets PO BID PRN and miralax 17g PO BID PRN, titrated to daily BM. If no BM 3 days or more, recommend bisacodyl supp [place] BID PRN cons tipation. If no BM 5 days or more suggest milk and molasses enema up to every 8 hours until BM. We have discussed the patient with primary team physician. Thank you for the opportunity to participate in this patient's care. We will follow along with you. [facility] Pager:#[phone](24 hours / 7 days) Extracted from:Title: Discharge Summary 09/10/2018 [facility] Author: Sadi Cortés MD Date: 09/09/18 Discharge Information Discharge Summary Information: Discharge diagnosis, Discharge medications ( See Discharge Medications). Fluctuating left eye vision loss Dysphagia Essential hypertension Hyperlipidemia History of TAX EXAMINER shunt History of craniotomy status post meningioma resection Discharge Plan Discharge Summary Plan Discharge Status: stable. Discharge instructions given. Discharge disposition: Higher level of care. Discharge planning greater than 30 minutes Extracted from:Title: Clinical Document Author: Kasi Amato MD Date: 09/09/18 NEUROLOGY and CRITICAL CARE MEDICINE [facility] Consultation / Progress Note Assessment / Recommendations / Plan Right eye pain Ophthalmology consultation appreciated. The pain is now resolved, but was likely secondary to right corneal desiccation versus subtle abrasion. Possibility of early herpetic conjunctivitis. Acyclovir drops initiated. Diminished vision from left eye (? ... not) Ophthalmology found 20/20 vision from the left eye, and no peripheral visual field loss. Dysphagia Slowly progressing for weeks (?) ... Has been is noted coughing. Speech evaluation states severe oral pharyngeal dysphasia and risk of aspiration. She has been deemed is n.p.o. She is refusing NG tube. Will submit myasthenia panel. Will give oral Mestinon, if she allows an NG tube. Discussions Discussed with patient, and her . Discussed in detail on multidisciplinary rounds Of note, the patient and are no longer seeking to go to the Medical Center ([facility]) They wish to continue to seek medical care here at [facility]. History of Present Illness 73F Presents (09/07/18) with right eye pain. Onset of pain was an hour prior to presentation. BP 146/41. HR 67. T 97.5. SPO2 98% on room air. PMH Hypertension Hyperlipidemia Diabetes mellitus Meningioma of the sphenoid planum Post craniotomy and meningioma resection (2010) Ventriculoperitoneal shunt Cranioplasty (2011) Vision loss left eye, chronic PSH Craniotomy and meningioma resection (2010) Ventriculoperitoneal shunt (2010) Cranioplasty (2011) FH See record [facility] . Lives at home with . Home Meds Family thinks the patient is taking her medication incorrectly Ramipril 10 mg daily Metoprolol 25 mg twice daily Amlodipine 5 mg daily Clopidogrel (Plavix) 75 mg daily Furosemide 20 mg every other day Rosuvastatin 20 mg at bedtime Ropinirole 2 mg daily Insulin glargine 20 units subcu every evening Adverse Rxns Reaction Adhesive Tape None Documented aspirin severe chest pain cefepime None Documented ciprofloxacin None Documented Cortizone-10 None Documented erythromycin None Documented penicillins rash PHENobarbital None Documented Subj See above ROS Const No fever, chills, rigors. No weight changes. Neuro No diplopia, dysarthria. No headache. Eyes (+) pain OD, redness, photophobia. ENT No new hearing loss, ringing, pain. No sorethroat. Card No CP, palpitations, subj rapid heart rates. Resp No SOB, BRICEÑO, wheeze, cough. GI No nausea, vomiting, diahhrea, melena, blood [place]. No new urgency, frequency, pain, or urine malodor. Vital Signs (last 24 hrs) Last Charted Heart Rate Apical 78 bpm (SEP 09:) Resp Rate H 22BRMIN (SEP 09:) SBP 125 mmHg (SEP 09:) DBP L 46mmHg (SEP 09:) SpO2 96 % (SEP 09:) Exam Neuro Awake. Alert. A bit dull, but during conversation, but smiles with humor. Conversational, but defers conversation to when he is here. Mild conjuctival injection OD. Ptosis mild (b). Pupils are equally round about 2 mm, and briskly reactive bilaterally. Primary gaze is midline. Ocular pursuits and range of motion appear normal. No lateral nystagmus. No facial asymmetries. Cranial postsurgical changes are immediately evident. Speech was articulate. Fluent, if slow. Comprehension intact. Prep Room Supervisor were surprisingly strong bilaterally. The patient was slowly ambulatory with physical therapy earlier. Lungs Clear bilaterally anteriorly. Heart Regular rhythm. No murmurs. Abd Moderately overweight. Skin Warm. Dry. Evaluations CT Head (08/16/18) No acute intracranial abnormality. No acute intracranial hemorrhage. Postoperative changes of right frontal craniotomy and right frontal lobe encephalomalacia from remote right frontal mass resection. Left transfrontal ventricular shunt in place. No evidence of hydrocephalus. Conversely, there is decompression of the ventricular system by the ventriculoperitoneal shunt in the interim. 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 AP diameter is now up to 2.4 cm, previously 2.1 cm. CTA Head and Neck (08/16/18) Atheromatous disease in the carotid bulbs not resulting in significant stenosis by NASCET criteria. Greater than 50% stenosis in the para and supraclinoid right internal carotid artery. No flow-limiting stenotic lesions in both home organizer. 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 Chest CT follow-up in 3 months can be performed for evaluation following adequate treatment. No evidence of mediastinal mass identified in the current study. Multiple prominent to mildly enlarged mediastinal and paratracheal lymph nodes measuring up to 8 mm in short axis. The may be benign or neoplastic. Narrowing of the right subclavian vein just below the right clavicular. 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 Aortic atherosclerotic disease. 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 Changes of diffuse idiopathic skeletal hyperostosis in the cervical spine. Postsurgical changes of pterional approach craniotomy and of laminectomies of C2 are seen. Ventricular shunt catheter in place. MRI Brain and Orbit (08/18/18) Increased size and extent of hyperostotic marrow signal change in the central skull base, with narrowing of the bilateral orbital apices including the optic canals and superior orbital fissures. These findings could explain reported cranial nerve symptoms. These bony changes are presumably due to a combination of residual intraosseous meningioma and associated reactive hyperostosis (with diffuse calvarial inner table hyperostosis and cervical/thoracic diffuse hepatic skeletal hyperostosis suggesting the patient is prone to reactive bone formation). Contrast-enhanced study would be helpful to further evaluate, which of the abnormality represents residual/recurrent meningioma. Narrowing of the supraclinoid right internal carotid artery as it traverses the hyperostotic changes is redemonstrated. Unchanged right frontal and right temporal cystic encephalomalacia with adjacent gliosis. Unchanged ventricular caliber and position of left frontal ventriculostomy. ECHO (08/18/18) Definity echocardiographic contrast was utilized for endocardial border delineation LV Left ventricular chamber size is normal and systolic function is at lower limit of normal with the LV ejection fraction estimated at 50-55%. Hypokinetic basal inferolateral, basal inferoseptal, and mid inferolateral wall segments RV Right ventricular cavity size and global systolic function are normal. Atria Both atria are normal in size. LINDA is 14 ml/m2 TV Trace tricuspid regurgitation present. Right ventricular systolic pressure was calculated at 28 mmHg assuming right atrial pressure of 3 mmHg. Valves No other significant valvular abnormalities. PC No pericardial effusion. When compared to the prior TTE on 01/23/11, there is no significant change. Cerebral arteriography (08/19/18) No aneurysm, or any other vascular lesion to explain the patient's acute neurologic deficit. 50% stenosis of the ophthalmic segment of the left internal carotid artery , likely atherosclerotic in nature. Narrowing of the ophthalmic and communicating segments of the right internal carotid artery, associated with absence of the right A1 segment, felt to be secondary to tumor encasement. Hypervascular subcutaneous lesion in the left parotid region, likely neoplastic in nature. Ambulatory high-resolution ultrasound examination would be helpful for better characterization. Atheromatous plaques in the carotid bifurcations and vertebral basilar system, without hemodynamically significant stenosis. EKG (08/19/18) Sinus rhythm Possible septal myocardial infarction (old, seen on prior studies) Inferior myocardial infarction (old, seen on prior studies) Lateral T wave abnormalities, consistent with ischemia - - - - - - - - - - - - - - - - EKG (09/07/18) [facility] Sinus rhythm Inferior infarction Anterior infarction T wave abnormality, consider lateral ischemia CT Head (09/07/18) [facility] (Report) Right frontal craniotomy. Orbits and globes are unremarkable. Extensive right frontal encephalomalacia. Central suprasellar mass (present on prior MRI) Labs Chol TG HDL LDL VLDL Chol/HDL TSH B12 ESR HgbA1c RPR HIV WBC 6.8 (SEP 08) Hgb 15.5 (SEP 08) Hct 47.7 (SEP 08) Plt L 125 (SEP 08) Na H 147 (SEP 08) K 3.8 (SEP 08) CO2 28 (SEP 08) Cl 107 (SEP 08) Cr 1.33 (SEP 08) BUN 21 (SEP 08) Glucose Random H 144 (SEP 08) Ca 9.3 (SEP 08) PT 13.5 (SEP 08) INR 1.05 (SEP 08) PTT 32.0 (APR 10) Laboratories [facility] (09/07/18) WBC 7.4, normal differential. Hgb 17.0, HCT 51, MCV 92. PLT 149. NA 142, K4.1, CL 107, HCO3 30. BUN 24, CR 1.57. GLU 176. GFR estimated 32. CA 9.4. MG 1.9. AST 36, ALT 41. AP 160 (H). Bili 0.7. TP 7.9, ALB 3.3 (L). PT 13.0, INR 1.11. Troponin 0.09 (H) Urine Urinalysis : UDS : Micro None Meds Scheduled Meds (1): 09/08/18 16:00 heparin 5,000 unit SUB-Q Q8H Unscheduled Meds: None PRN Meds (3): 09/08/18 9:49 Dextrose 50% in Water IV (Dextrose 50% Syringe) 12.5 gm IVP PRN 09/08/18 9:49 Dextrose 50% in Water IV (Dextrose 50% Syringe) 25 gm IVP PRN 09/08/18 9:49 glucagon 1 mg IM PRN One Time Meds: None Continuous Infusions: None Nutrition Lines Periph Enriquez None DVT Prophylaxis Heparin Adv Dir Full Code (Nonspecified) Time 45 minutes Extracted from:Title: H&P Author: Sadi Cortés MD Date: 09/08/18 Impression and Plan Education and Follow-up: Discharge Planning: Plan to discharge ( To home ). Fluctuating left eye vision loss Dysphagia Essential hypertension Hyperlipidemia History of TAX EXAMINER shunt History of craniotomy status post meningioma resection Pending neurology evaluation Failed bedside swallow eval. Speech therapy to evaluate the patient PT/OT eval and treat Will reconsult meds once achieved by [facility] per protocol Supportive care management Extracted from:Title: Ophthalmology Consult Note 08/20/2018 [facility] Author: Sivan Thomas MD Date: 08/17/18 CONSULTATION OPHTHALMOLOGY PATIENT NAME: FRANCI LANGE MR #: [id number] ROOM: [place] [address] REQUESTING TEAM/ATTENDING: ED DATE OF CONSULT: 08/17/2018 CONSULTING ATTENDING: Kalani Jacobo MD CONSULTING RESIDENT: Sivan Laws MD REASON FOR CONSULT: left ptosis CHART REVIEWED: YES HISTORY OF PRESENT ILLNESS: 73 year old female with HTN, HLD, planum sphenoidal meningioma, right frontal craniotomy for meningioma s/p resection in 2010, hydrocephalus s/p craniectomy and TAX EXAMINER shunt, cr anioplasty in 2011 and POH [...] appointment to follow up with her primary pulper tender or Dr. Kalani Jacobo at the [facility] upon discharge ( Located: [address] [place] [address], 18th floor, ) or i f patient has a Your.MD Card/has pending application they can follow up at [facility] ([address] [facility] [place] [address] ) Sivan Laws MD Ophthalmology PGY2 [facility] Plan of Care No Data Provided for This Section Social History Social History Date Source Social History TypeResponse 09/08/2018 [facility] Substance Abuse Use: None. Alcohol Current, Frequency: 1-2 times per year. Smoking Status Never smoker; Exposure to Tobacco Smoke None; Cigarette Smoking Last 365 Days No; Reg Smoking Cessation Counseling No entered on: 09/08/18 Social History TypeResponse 09/08/2018 [facility] Substance Abuse Use: None. Alcohol Current, Frequency: 1-2 times per year. Smoking Status Never smoker; Ready to change: No; Concerns about tobacco use in household: No ; Exposure to Tobacco Smoke None; Cigarette Smoking Last 365 Days No; Reg Smoking Cessation Counseling No entered on: 11/29/18 Social History TypeResponse 09/08/2018 [facility] Substance Abuse Use: None. Alcohol Current, Frequency: 1-2 times per year. Smoking Status Never smoker; Ready to change: No; Concerns about tobacco use in household: No ; Exposure to Tobacco Smoke None; Cigarette Smoking Last 365 Days No; Reg Smoking Cessation Counseling No entered on: 09/21/18 Social History TypeResponse 08/17/2018 [facility] Never Smoking Status Never smoker; Ready to change: No; Concerns about tobacco use in household: No ; Exposure to Tobacco Smoke None; Cigarette Smoking Last 365 Days No; Reg Smoking Cessation Counseling No entered on: 08/16/18 Family History No Data Provided for This Section Advance Directives No Data Provided for This Section Functional Status No Data Provided for This Section
--- OUTSIDE RECORDS SUMMARY | 2018-12-15 18:05 | XMS REPORT | Summary of Care ---
:1945 Author Organization [facility] Address [address] [place] [id number]- Encounter HQ Encntr_alisergio(FIN) [id number] Date(s): 11/29/18 - 11/29/[address] Professional Services provided by [facility] [place] [address]- Encounter Diagnosis Acute right-sided back pain (Discharge Diagnosis) - 11/29/18 Discharge Disposition: Home or Self Care Attending Physician: Abel Pierce MD Vital Signs Most recent to oldest [Reference 1 2 3 Range]: Height 149.86 cm (11/29/18 7:44 AM) Temperature Oral [96.4-99.1 DegF] 98.8 DegF 98.7 DegF (11/29/18 12:30 PM) (11/29/18 7:44 AM) Blood Pressure [90-140/60-90 174/74 mmHg 190/79 mmHg 163/83 mmHg mmHg] *HI* *HI* *HI* (11/29/18 12:30 PM) (11/29/18 8:00 AM) (11/29/18 7:44 AM) Respiratory Rate [14-20 BRMIN] 20 BRMIN 20 BRMIN (11/29/18 12:30 PM) (11/29/18 7:44 AM) Peripheral Pulse Rate [60-100 78 bpm 80 bpm bpm] (11/29/18 12:30 PM) (11/29/18 7:44 AM) Weight 102.273 kg (11/29/18 7:44 AM) Body Mass Index 45.54 m2 (11/29/18 7:44 AM) Problem List Condition Effective Dates Status Health [...] 1Data migrated from [employer] on 01/23/15.2right [id number] Allergies, Adverse Reactions, Alerts Substance Reaction Severity Status penicillins1 rash Active ciprofloxacin Active erythromycin2 Active heparin Severe Active phenobarbital rash Active aspirin3 severe chest [...] on 01/22/15. Originally documented as PHENOBARBITAL. Medications ibuprofen 400 mg, 1 tab, Route: PO, Drug form: TAB, ONCE, Dosing Weight 102.273, kg, Priority: STAT, Start date: 11/29/18 9:35:00 CDT, Stop date: 11/29/18 9:35:00 CDT, 0 Notes: (Same as: Motrin)"Do Not Crush" Give with food. Start Date: 11/29/18 Stop Date: 11/29/18 Status: CompletedTylenol 1,000 mg, 2 tab, Route: PO, Drug form: TAB, ONCE, Dosing Weight 102.273, kg, Priority: STAT, Start date: 11/29/18 9:32:00 CDT, Stop date: 11/29/18 9:32:00 CDT, 0 Notes: Max acetaminophen 4000 mg/day (4 gm/day). (Same as: Tylenol Extra Strength) Start Date: 11/29/18 Stop Date: 11/29/18 Status: Completed Results Most recent to oldest [Reference Range]: 1 eGFR 76 mL/min/1.73m2 1 *NA* (11/29/18 11:13 AM) AGAP [10.0-20.0 mEq/L] 10.2 mEq/L (11/29/18 11:13 AM) BUN [7-22 mg/dL] 19 mg/dL (11/29/18 11:13 AM) Calcium Lvl [8.5-10.5 mg/dL] 9.3 mg/dL (11/29/18 11:13 AM) Chloride Lvl [95-109 mEq/L] 104 mEq/L (11/29/18 11:13 AM) CO2 [24-32 mEq/L] 30 mEq/L (11/29/18 11:13 AM) Creatinine Lvl [0.50-1.40 mg/dL] 0.79 mg/dL (11/29/18 11:13 AM) Glucose Lvl [70-99 mg/dL] 104 mg/dL *HI* (11/29/18 11:13 AM) Potassium Lvl [3.5-5.1 mEq/L] 4.2 mEq/L (11/29/18 11:13 AM) Sodium Lvl [135-145 mEq/L] 140 mEq/L (11/29/18 11:13 AM) UA Bacteria [None Seen /HPF] Few /HPF (11/29/18 10:09 AM) UA Bili [Negative] Small *ABN* (11/29/18 10:09 AM) UA Blood [Negative] Negative (11/29/18 10:09 AM) UA CaOx Jagruti [None Seen /HPF] Moderate /HPF *ABN* (11/29/18 10:09 AM) UA Color [Yellow] Yellow *NA* (11/29/18 10:09 AM) UA Glucose [Negative] Negative (11/29/18 10:09 AM) UA Ketones [Negative] Negative *NA* (11/29/18 10:09 AM) UA Leuk Est [Negative] Negative (11/29/18 10:09 AM) UA Mucus [None Seen /LPF] Few /LPF (11/29/18 10:09 AM) UA Nitrite [Negative] Negative (11/29/18 10:09 AM) UA pH [5.0-8.0] 5.5 (11/29/18 10:09 AM) UA Protein [Negative mg/dL] 100 mg/dL *ABN* (11/29/18 10:09 AM) UA RBC [0-2] None Seen (11/29/18 10:09 AM) UA Spec Grav [<=1.030] >=1.030 *ABN* (11/29/18 10:09 AM) UA Sq Epi [Few /LPF] Moderate /LPF *ABN* (11/29/18 10:09 AM) UA Turbidity [Clear] Slight Cloudy (11/29/18 10:09 AM) UA Urobilinogen [0.1-1.0 EU/dL] 0.2 EU/dL (11/29/18 10:09 AM) UA WBC [None Seen /HPF] 0-2 /HPF (11/29/18 10:09 AM) 1Result Comment: The eGFR is calculated [...] should be multiplied by the estimated BMI. Immunizations No data available for this section Procedures Procedure Date Related Diagnosis Body Site Status Cervical laminectomy Completed section Completed Resection Completed Shunt construction Completed Tonsillectomy Completed Social History Social History Type Response Substance Abuse Use: None. Alcohol Current, Frequency: 1-2 times per year. Smoking Status Never smoker; Ready to change: No; Concerns about tobacco use in household: No; Exposure to Tobacco Smoke None; Cigarette Smoking Last 365 Days No; Reg Smoking Cessation Counseling No entered on: 11/29/18 Assessment and Plan No data available for this section
--- OUTSIDE RECORDS SUMMARY | 2018-12-15 18:05 | XMS REPORT | Summary of Care ---
:1945 Author Organization [facility] [place] Address [address] [place] [id number]- Encounter HQ Encntr_alias(FIN) [id number] Date(s): 11/18/18 - 11/18/18 [facility] [address], [address] [place] [address]- [phone] Discharge Disposition: Home or Self Care Attending Physician: Savannah Sr MD Referring Physician: Savannah Sr MD Vital Signs No data available for this [...] 1Data migrated from [employer] on 01/23/15.2right [id number] Allergies, Adverse Reactions, Alerts Substance Reaction Severity [...] Originally documented as ADHESIVE TAPE.5Data migrated from [employer] on 01/22/15. Originally documented as PHENOBARBITAL. Medications [...] Smoking Cessation Counseling No entered on: 09/21/18 Assessment and Plan No data available for this section
--- OUTSIDE RECORDS SUMMARY | 2018-12-15 18:06 | XMS REPORT | CCD ---
:1945 Author Organization [facility] Care Team Providers Name Role Phone SarojarianaJaja [...] Consulting Provider Unavailable Elke Feliz Consulting Provider [phone] Chepe Knott Consulting Provider Unavailable Solange Rizvi [...] Consulting Provider Unavailable Wale Becerra Consulting Provider [phone] Kasi Chavez Consulting Provider Unavailable Linnea Villaseñor Consulting Provider [phone] Navya Zamora Consulting Provider Unavailable Luther Vang Referring Provider Unavailable Linda Pace Consulting Provider Darcy Aleman Consulting Provider Mike Zeng Consulting Provider Unavailable Octavio Wu Consulting Provider Unavailable Molly Brown Consulting Provider Unavailable Estefania Demarco Consulting Provider Unavailable Lisandro Gonzales Consulting Provider Unavailable Elvis Dhillon Consulting Provider Unavailable Nila Navarro Consulting Provider Unavailable Mauricio Reyes Consulting Provider [phone] Renetta Garsia Consulting Provider Unavailable Sherice Carrington Consulting Provider Franci Ely Consulting Provider [phone] Laure Sahu Consulting Provider Rabia Worley Consulting Provider Unavailable Elisabeth Archer Consulting Provider Unavailable Isabel Gonzales Consulting Provider Unavailable Sharon Farley Consulting Provider Unavailable Allen Skaggs Consulting Provider Unavailable Vicky Urbina My Consulting Provider Allison Stratton Consulting Provider Unavailable Micha Medellin Consulting Provider Unavailable Ronal Lanza Consulting Provider [phone] Telma Villasenor Consulting Provider Unavailable Gideon Nur [...] Consulting Provider Prashant Calderón Consulting Provider Unavailable lAan Vela Consulting Provider Unavailable Ellyn Rangel Consulting Provider Unavailable SYSTEM, SYSTEM Consulting Provider Unavailable Arelis Mora Consulting Provider Unavailable Mercy Arita Consulting Provider Nabila Pope Consulting Provider Unavailable Chel Ochoa Consulting Provider Unavailable oBnnie Mathew Consulting Provider Juan J Clay Consulting Provider Unavailable Abel Bonner Consulting Provider Isaiah Mcnulty Consulting Provider Unavailable Manasa Turner Consulting Provider Unavailable Linnea Villaseñor Consulting Provider Unavailable Brigitte Parks Consulting Provider Unavailable Filippo Jolly Consulting Provider [phone] Maegan Buck Consulting Provider Unavailable Sylvia Fernandez Consulting Provider Unavailable Flora Roberson Consulting Provider Camden Joy Consulting Provider Unavailable Roopa Davis Consulting Provider [phone] Abril Barnett Consulting Provider Noreen Egan Consulting Provider Unavailable Belle Nesbitt Consulting Provider Unavailable Elizabeth Dominguez Consulting Provider Jimmy Da Silva Consulting Provider Unavailable Hayder Mccarthy Consulting Provider Unavailable Shirley Leos Consulting Provider [phone] Genet Thakkar Consulting Provider Omid Daniels Consulting Provider Unavailable Seth Anne Consulting Provider [phone] Katharine Stover Consulting Provider Unavailable Kolby Berumen I Consulting Provider [phone] David Jolanta Claudio Consulting Provider Carlos Becerra Consulting Provider Unavailable AbaCaroline earl Consulting Provider Unavailable Carolina Rajan Consulting Provider Unavailable Antonio Sofi Consulting Provider Unavailable Raiza Brennan Consulting Provider Unavailable PCP, No Patient Contact Consulting Provider Unavailable Kelvin Dorado Consulting Provider [phone] Chelsea Bunn Consulting Provider Unavailable Chel Schmidt Consulting Provider Jillian Yi Consulting Provider Unavailable Caio Arita Consulting Provider [phone] Erika Steve Consulting Provider [phone] Joseph Mahajan Consulting Provider Unavailable Bonnie Bean Consulting Provider Unavailable Luis Flynn (Bladimir) Gamaliel Consulting Provider [phone] Skyler Maldonado Consulting Provider Unavailable Cassia Cid Consulting Provider Unavailable Estuardo Rey Consulting Provider Unavailable Janice Henley Consulting Provider [phone] Anny Vazquez Consulting Provider Unavailable AlissaJuan Ramon lopez Consulting Provider Kasi Vang Consulting Provider Unavailable Antionette Rowland Consulting Provider Manasa Mcgarry Consulting Provider Unavailable Christie Lal Consulting Provider Unavailable Trcay Leon Consulting Provider Unavailable Sky Rizvi Consulting Provider Unavailable Jess Alicia Consulting Provider [phone] Lazaro Macias Consulting Provider [phone] Rosa Pablo Consulting Provider Unavailable Vivien Mars Consulting Provider Unavailable Penelope Dunbar Consulting Provider Unavailable Chel Stern Consulting Provider Unavailable Jessica Giordano Consulting Provider [phone] Natalie Bell Consulting Provider Unavailable Blas Rg [...] IVPB, Drug 01/24/2011 01/27/2011 Discontinued form: INJ, [id number], Start date: 01/24/11 9:00:00, Duration: 30 day, [...] 30 01/23/2011 ?? Suspended tab, Substitution Allowed [place] Thyroid 120 mg oral 1 tab, PO, [...] Duration: 30 day, Stop date: 02/23/11 9:00:00 [place] 5/325 oral tablet 1 tab, Route: PO, [...] mg, 1 supp, Route: 01/23/2011 01/31/2011 Discontinued [place], Drug form: SUPP, Daily, PRN Constipation, Start [...] 10 mg rectal 10 mg, 1 supp, [place], 01/31/2011 ?? Suspended suppository Daily, PRN, 60 supp, Constipation, Substitution Allowed, SUPP [place] 5/325 oral tablet 1 tab, PO, Q4H, [...] based on the clinical recommendations of the [place] [employer].6Interpretive Data: Reference Ranges : 0 - 7 days : 41 - 90 mg/dL7 days - 150 yrs : 70 - 99 mg/dL (fasting), based on the clinical recommendations of the [place] [employer].7Interpretive Data : Reference Ranges : 0 - 7 days : 41 - 90 mg/dL7 days - 150 yrs : 70 - 99 mg/dL (fasting), based on the clinical recommendations of the [place] [employer].8Interpretive Data: HbA1C% eAG(mg/dL) Interpretation 6.0 [...] Data: Heparin Therapeutic Range: 57 - 92 [id number] Data: Heparin Therapeutic Range: 57 - 92 [id number] Data: Heparin Therapeutic Range: 57 - 92 Seconds Microbiology Reports PROCEDURE:Culture: Resistant Acinetobacter Screen STATUS: Auth (Verified) BODY SITE: ?? COLLECTED DATE/TIME: 01/23/2011 05:00:00 SOURCE: Throat FREE TEXT SOURCE: swab FINAL REPORTS Final ReportNo Acinetobacter IsolatedPRELIMINARY REPORTS Preliminary ReportCulture In Progress
--- OUTSIDE RECORDS SUMMARY | 2018-12-15 18:07 | XMS REPORT | CCD ---
:[address] [facility] Care Team Providers Name Role Phone Jaja [...] Consulting Provider Unavailable Elke Feliz Consulting Provider [phone] Chepe Knott Consulting Provider Unavailable Solange Rizvi [...] Consulting Provider Unavailable Wale Becerra Consulting Provider [phone] Kasi Chavez Consulting Provider Unavailable Linnea Villaseñor Consulting Provider [phone] Navya Zamora Consulting Provider Unavailable Luther Vang Referring Provider Unavailable Linda Pace Consulting Provider Darcy Aleman Consulting Provider Mike Zeng Consulting Provider Unavailable Octavio Wu Consulting Provider Unavailable Molly Brown Consulting Provider Unavailable Estefania Demarco Consulting Provider Unavailable Lisandro Gonzales Consulting Provider Unavailable Elvis Dhillon Consulting Provider Unavailable Nila Navarro Consulting Provider Unavailable Mauricio Reyes Consulting Provider [phone] Renetta Garsia Consulting Provider Unavailable Sherice Carrington Consulting Provider Franci Ely Consulting Provider [phone] Laure Sahu Consulting Provider Rabia Worley Consulting Provider Unavailable Elisabeth Archer Consulting Provider Unavailable Isabel Gonzales Consulting Provider Unavailable Sharon Farley Consulting Provider Unavailable Allen Skaggs Consulting Provider Unavailable Carlitos, Vicky Phi My Consulting Provider Allison Stratton Consulting Provider Unavailable Micha Medellin Consulting Provider Unavailable Ronal Lanza Consulting Provider [phone] Telma Villasenor Consulting Provider Unavailable Natasha Cheema S Consulting Provider [phone] Gideon Nur Consulting Provider Malia Clemons Consulting Provider Unavailable Jaswant Rivzi Consulting Provider Unavailable Bella Rizvi Consulting Provider [...] Consulting Provider Unavailable Filippo Jolly Consulting Provider [phone] Maegan Buck Consulting Provider Unavailable Sylvia Fernandez Consulting Provider Unavailable Flora Roberson Consulting Provider Camden Joy Consulting Provider Unavailable Roopa Davis Consulting Provider [phone] Abril Barnett Consulting Provider Noreen Egan Consulting Provider Unavailable Belle Nesbitt Consulting Provider Unavailable Elizabeth Dominguez Consulting Provider Jimmy Da Silva Consulting Provider Unavailable Hayder Mccarthy Consulting Provider Unavailable Shirley Leos Consulting Provider [phone] Genet Thakkar Consulting Provider Omid Daniels Consulting Provider Unavailable Seth Anne Consulting Provider [phone] Katharine Stover Consulting Provider Unavailable Kolby Berumen I Consulting Provider [phone] Jolanta Hernandez Consulting Provider Carlos Becerra Consulting Provider Unavailable AbaCaroline earl Consulting Provider Unavailable Carolina Rajan Consulting Provider Unavailable Sofi Alvarez Consulting Provider Unavailable Raiza Brennan Consulting Provider Unavailable PCP, No Patient Contact Consulting Provider Unavailable Kelvin Dorado Consulting Provider [phone] Chelsea Bunn Consulting Provider Unavailable Chel Schmidt Consulting Provider Jillian Yi Consulting Provider Unavailable Caio Arita Consulting Provider [phone] Erika Steve Consulting Provider [phone] Joseph Mahajan Consulting Provider Unavailable Bonnie Bean Consulting Provider Unavailable Luis Flynn) Gamaliel Consulting Provider [phone] Skyler Maldonado Consulting Provider Unavailable Cassia Cid Consulting Provider Unavailable Estuardo Rey Consulting Provider Unavailable Janice Henley Consulting Provider [phone] Anny Vazquez Consulting Provider Unavailable Juan Ramon Maxwell Consulting Provider Kasi Vang Consulting Provider Unavailable Antionette Rowland Consulting Provider Manasa Mcgarry Consulting Provider Unavailable Christie Lal Consulting Provider Unavailable Tracy Leon Consulting Provider Unavailable Sky Rizvi Consulting Provider Unavailable Jess Alicia Consulting Provider [phone] Lazaro Macias Consulting Provider [phone] Rosa Pablo Consulting Provider Unavailable Vivien Mars Consulting Provider Unavailable Penelope Dunbar Consulting Provider Unavailable Leena Chel A Consulting Provider Unavailable Jessica Giordano Consulting Provider [phone] VladimiritzelNatalie Consulting Provider Unavailable Blas Rg Consulting [...] IVPB, Drug 01/24/2011 01/27/2011 Discontinued form: INJ, [id number], Start date: 01/24/11 9:00:00, Duration: 30 day, [...] 30 01/23/2011 ?? Suspended tab, Substitution Allowed [place] Thyroid 120 mg oral 1 tab, PO, [...] Duration: 30 day, Stop date: 02/23/11 9:00:00 [place] 5/325 oral tablet 1 tab, Route: PO, [...] mg, 1 supp, Route: 01/23/2011 01/31/2011 Discontinued [place], Drug form: SUPP, Daily, PRN Constipation, Start [...] 10 mg rectal 10 mg, 1 supp, [place], 01/31/2011 ?? Suspended suppository Daily, PRN, 60 supp, Constipation, Substitution Allowed, SUPP [place] 5/325 oral tablet 1 tab, PO, Q4H, [...] based on the clinical recommendations of the [place] [employer].6Interpretive Data: Reference Ranges : 0 - 7 days : 41 - 90 mg/dL7 days - 150 yrs : 70 - 99 mg/dL (fasting), based on the clinical recommendations of the [place] [employer].7Interpretive Data : Reference Ranges : 0 - 7 days : 41 - 90 mg/dL7 days - 150 yrs : 70 - 99 mg/dL (fasting), based on the clinical recommendations of the [place] [employer].8Interpretive Data: HbA1C% eAG(mg/dL) Interpretation 6.0 [...] Data: Heparin Therapeutic Range: 57 - 92 [id number] Data: Heparin Therapeutic Range: 57 - 92 [id number] Data: Heparin Therapeutic Range: 57 - 92 Seconds Microbiology Reports PROCEDURE:Culture: Resistant Acinetobacter Screen STATUS: Auth (Verified) BODY SITE: ?? COLLECTED DATE/TIME: 01/23/2011 05:00:00 SOURCE: Throat FREE TEXT SOURCE: swab FINAL REPORTS Final ReportNo Acinetobacter IsolatedPRELIMINARY REPORTS Preliminary ReportCulture In Progress
--- OUTSIDE RECORDS SUMMARY | 2018-12-15 18:09 | XMS REPORT | CCD ---
:1945 Author Organization [facility] Care Team Providers Name Role Phone JOSUÉ Simon Consulting Provider Unavailable Hattie Marin Consulting Provider Unavailable Moise Morelos Consulting Provider Unavailable Sharon Kimbrough Consulting Provider Unavailable Alexandre Skaggs Consulting Provider Unavailable June Mares Consulting Provider Héctor Craig Consulting Provider Unavailable Katia Borrego Consulting Provider Unavailable Zonia Chaves Consulting Provider Unavailable Ronald Hernandes Consulting Provider Unavailable Antionette Soto Consulting Provider [phone] Camden Dunbar Consulting Provider Keagan Carbajal Consulting [...] Provider Unavailable Franci Lange Consulting Provider Елена Goerges Consulting Provider Unavailable Wilmer Wallis Consulting Provider Unavailable Ct Eaton Consulting Provider Frieda Salcido Consulting Provider Unavailable Chevy Fang Consulting Provider Unavailable Darcy Aleman Consulting Provider Octavio Wu Consulting Provider Unavailable Kennedi Cruz Consulting Provider Unavailable Cm Junior Consulting Provider [phone] Dominick Armstrong Consulting Provider Unavailable Qi Carter Consulting Provider Unavailable Adarsh Morales Consulting Provider Unavailable Stephanie Ely Consulting Provider Unavailable Alyx Turner Consulting Provider Unavailable Capri Whitfield Consulting Provider Unavailable Amanda Truong I Consulting Provider Unavailable Alyx Brand Consulting Provider Unavailable June Demarco Consulting Provider Unavailable Marilin Allen Consulting Provider Unavailable Cong Ceron Jr Consulting Provider [phone] Janice Salinas Consulting Provider Unavailable Casandra Caceres Consulting Provider Unavailable Jessica Ely Consulting Provider [phone] Skyler Luciano Consulting Provider Unavailable Alyx Hansen [...] Consulting Provider Unavailable Katie Christianson Consulting Provider eGmma Brizuela Consulting Provider [phone] Fransisca Gallo Consulting Provider [phone] Norah Donald Consulting Provider Unavailable Emilia Pearson Consulting Provider Unavailable Renetta Bunn Consulting Provider Unavailable Vane Pavon Consulting Provider Unavailable Ellyn Rangel Consulting Provider Unavailable SYSTEM, SYSTEM Consulting Provider Unavailable Kate Rizvi Consulting Provider Unavailable Wilmer Ferreira Consulting Provider Unavailable rAelis Mora Consulting Provider Unavailable Juliette Jim Consulting Provider Unavailable Carina Sanchez Consulting Provider Unavailable Nabila Pope Consulting Provider Unavailable Chel Ochoa Consulting Provider Unavailable Bonnie Mathew Consulting Provider Tamara Huynh Consulting Provider Unavailable Jose M Tomlinson Consulting Provider Unavailable Angeli Howe I Consulting Provider Unavailable Tavia Villalba Consulting Provider [phone] Yany Trinidad Consulting Provider Unavailable Liberty Wei Consulting Provider Unavailable Eliazar Howe Consulting Provider Unavailable Kevin Devi Consulting Provider John Wadsworth Consulting Provider Caroline Abreu Consulting Provider Unavailable Sanchez Jackson Consulting Provider [phone] Amol Olivarez Consulting Provider Unavailable Lam Flynn [...] Provider Unavailable Luis Flynn) Gamaliel Consulting Provider [phone] Skyler Maldonado Consulting Provider Unavailable Lulu Fu Consulting Provider [phone] Marley Villarreal Consulting Provider Unavailable Tita Connelly Consulting Provider [phone] Radha Merrill Consulting Provider Unavailable Sky Rizvi Consulting Provider Unavailable Linda Morejon Consulting Provider Neris Wolff Consulting Provider Unavailable Jessica Giordano Consulting Provider [phone] Nel Gilmore Consulting Provider Dean, Fide B [...] IVPB, Drug 02/19/2011 02/19/2011 Discontinued form: INJ, [id number], Start date: 02/19/11 14:00:00, Duration: 30 day, Stop date: 03/21/11 2:00:00 [place] 5/325 oral tablet 1 tab, Route: PO, Drug 01/31/2011 02/19/2011 Discontinued Form: TAB, Q4H, PRN as needed for pain, Start date: 01/31/11 14:56:00, Duration: 30 day, Stop date: 03/02/11 14:55:00 [place] Enema 133 ml, Route: [place], Drug 02/10/2011 02/10/2011 Completed Form: JEANNIE, ONCE, Start date: 02/10/11 14:15:00, Stop date: 02/10/11 14:15:00 bisacodyl 10 mg, 1 supp, Route: 02/10/2011 02/10/2011 Completed [place], Drug form: SUPP, ONCE, Start date: 02/10/11 [...] Duration: 30 day, Stop date: 03/07/11 17:00:00 [place] Thyroid 120 mg, 2 tab, Route: 02/01/2011 02/19/2011 Discontinued PO, Drug form: TAB, Daily, Start date: 02/01/11 9:00:00, Duration: 30 day, Stop date: 03/02/11 9:00:00 hydrALAZINE 25 mg oral 25 mg, 1 tab, PO, BID, 02/18/2011 ?? Ordered tablet 60 tab, Substitution Allowed, TAB bisacodyl 10 mg rectal 10 mg, 1 supp, [place], 02/18/2011 ?? Ordered suppository Bedtime, PRN, 30 supp, Constipation, Substitution Allowed, SUPP [place] 5/325 oral tablet 1 tab, PO, Q4H, PRN, 30 02/18/2011 ?? Ordered tab, as needed for pain, Substitution Allowed, Maintenance, TAB [place] Thyroid 120 mg oral 120 mg, 1 tab, PO, 02/18/2011 ?? Ordered tablet Daily, 30 tab, Substitution Allowed, TAB C[place] 20 mg oral tablet 20 mg, 1 tab, PO, Daily, 02/18/2011 ?? Ordered 30 tab, Substitution Allowed, TAB bisacodyl 10 mg, Route: [place], Drug 01/31/2011 01/31/2011 Discontinued form: SUPP, Daily, [...] mg, 1 supp, Route: 01/31/2011 02/19/2011 Discontinued [place], Drug form: SUPP, Bedtime, PRN Constipation, Start [...] based on the clinical recommendations of the [place] [employer].9Interpretive Data: Reference Ranges : 0 - 7 days : 41 - 90 mg/dL7 days - 150 yrs : 70 - 99 mg/dL (fasting), based on the clinical recommendations of the [place] [employer].10Interpretive Data: Reference Ranges : 0 - 7 days : 41 - 90 mg /dL7 days - 150 yrs : 70 - 99 mg/dL (fasting), based on the clinical recommendations of the [place] [employer].HEMATOLOGY Most recent to oldest 1 [...] SOURCE: Tissue FREE TEXT SOURCE: [place] [address], skin tissue , cup PRELIMINARY REPORTS Preliminary ReportNo Growth At 1 DaySTAIN REPORTS Stain ReportNo Wbc'S; No Organisms Seen Phone Report Made To: [place] ([place] [id number]) 02/19/2011 12:42:27 Read Back Ok PROCEDURE: Culture: Urine STATUS: Auth (Verified) BODY SITE: ?? COLLECTED DATE/TIME: 02/02/2011 18:00:00 SOURCE: Urine, Catheterized FREE TEXT SOURCE: short cup FINAL REPORTS Final Okdlfr4455-83,000/Ml Escherichia coli 1000-10, 000/Ml Klebsiella pneumoniae ssp pneumoniaePRELIMINARY REPORTS Preliminary Gvhvyf0717-56,000/Ml Gram Negative Rods, Lactose Fermenters , 2 Basehor Types Preliminary Mowdeg0491-77,000/Ml Gram Negative Rods, Lactose Fermenters 1000-10,000/Ml Gram [...]
--- OUTSIDE RECORDS SUMMARY | 2018-12-15 18:09 | XMS REPORT | CCD ---
:1945 Author Organization [facility] Care Team Providers Name Role Phone Jaja [...] Consulting Provider Unavailable Lulu Nicole Consulting Provider [phone] Linnea Villaseñor Consulting Provider [phone] Burak Chen Consulting Provider Unavailable Rabia Luther Consulting Provider Unavailable Alanis Hair Consulting Provider Unavailable Dina Casey Consulting Provider Unavailable Nina Atkinson Consulting Provider Unavailable Linda Pace Consulting Provider Octavio Wu Consulting Provider Unavailable Lisandor Gonzales Consulting Provider Unavailable Sylvia Aguilar Consulting [...] Provider Unavailable Leanne Maurer Consulting Provider Unavailable Juaan Friend Consulting Provider Unavailable Katie Christianson Consulting Provider Val Walker Consulting Provider Ananya Esquivel Consulting Provider Unavailable Sami Fishman Consulting Provider Fransisca Gallo Consulting Provider [phone] Amanda Marin Consulting Provider Unavailable Cira Archuleta [...] Consulting Provider Unavailable Tavia Villalba Consulting Provider [phone] Elvi Whatley Consulting Provider Unavailable Liberty Wei Consulting Provider Unavailable Tami Graham Consulting Provider Unavailable Belle Nesbitt Consulting Provider Unavailable Claudy Salazar Consulting Provider Unavailable Yennifer Mcdermott Consulting Provider [phone] Shirley Leos Consulting Provider [phone] Diamante Lubin Consulting Provider Jolanta Hernandez Consulting Provider Caroline Abreu Consulting Provider Unavailable Ena Rivera Consulting Provider Unavailable Estefania Vazquez Consulting Provider Unavailable Raiza Brennan Consulting Provider Unavailable Chelsea Bunn Consulting Provider Unavailable Chel Schmidt Consulting Provider Dayna Oviedo Consulting Provider [phone] Rikcy Cordova Consulting Provider Unavailable Angie Holland Consulting Provider Unavailable Starr Reece Consulting Provider Joe Meléndez Consulting Provider Unavailable Isaiah Herman Consulting Provider Unavailable Slime Salguero Consulting Provider Unavailable Luis Flynn (Bladimir) Gamaliel Consulting Provider [phone] Skyler Maldoando Consulting Provider Unavailable Marley Villarreal Consulting Provider Unavailable Susan Wadsworth Consulting Provider Manasa Mcgarry Consulting Provider Unavailable Albaro White Consulting Provider Unavailable Sky Rizvi Consulting Provider Unavailable Reagan Lloyd Consulting Provider Carlos Galvan Consulting Provider Unavailable Jessica Giordano Consulting Provider [phone] Natalie Bell Consulting Provider Unavailable Blas Rg Consulting Provider Keagan Khan Consulting Provider Eze Orourke (Edy) Consulting Provider [phone] Meena Alan Consulting Provider Alvin Strickland Consulting [...] 02/19/2011 02/20/2011 Discontinued IVPB, Drug form: INJ, [id number], Priority: NOW, Start date: 02/19/11 16:10:00, Duration: [...] 03/03/11 9:00:00 [place] Enema 133 ml, Route: [place], Drug 02/24/2011 02/24/2011 Completed Form: JEANNIE, ONCE, Start date: 02/24/11 14:38:00, Stop date: 02/24/11 14:38:00 bisacodyl 10 mg, 1 supp, Route: 02/24/2011 02/24/2011 Completed [place], Drug form: SUPP, ONCE, Start date: 02/24/11 [...] date: 02/20/11 17:00:00, Stop date: 03/22/11 9:00:00 [place] 7.5/325 oral tablet 1 tab, Route: PO, Drug 02/20/2011 02/26/2011 Discontinued Form: TAB, Q4H, PRN Pain, Start date: 02/20/11 11:07:00, Duration: 30 day, Stop date: 03/22/11 11:06:00 Tylenol 650 mg, 2 tab, Route: 02/19/2011 02/20/2011 Discontinued PO, Drug form: TAB, Q4H, PRN Fever, Start date: 02/19/11 21:13:00, Duration: 30 day, Stop date: 03/21/11 21:12:00 [place] 5/325 oral tablet 1 tab, Route: PO, Drug 02/19/2011 02/26/2011 Discontinued Form: TAB, Q4H, PRN Pain, Start date: 02/19/11 16:14:00, Duration: 30 day, Stop date: 03/21/11 16:13:00 [place] Thyroid 120 mg, 2 tab, Route: 02/20/2011 [...] date: 02/24/11 13:03:00, Stop date: 02/24/11 13:03:00 [place] Thyroid 60 mg oral 120 mg, 2 [...] based on the clinical recommendations of the [place] [employer].5Interpretive Data: Reference Ranges : 0 - 7 days : 41 - 90 mg/dL7 days - 150 yrs : 70 - 99 mg/dL (fasting), based on the clinical recommendations of the [place] [employer].6Interpretive Data : Reference Ranges : 0 - 7 days : 41 - 90 mg/dL7 days - 150 yrs : 70 - 99 mg/dL (fasting), based on the clinical recommendations of the [place] [employer].HEMATOLOGY Most recent to oldest 1 [...] Tissue FREE TEXT [place]: [place] [id number], CUP FINAL REPORTS Final ReportFew Pseudomonas aeruginosaPRELIMINARY [...] SOURCE: CSF FREE TEXT SOURCE: [place] STAT [address]. cup FINAL REPORTS Final ReportNo Growth At 3 DaysPRELIMINARY REPORTS* Preliminary ReportNo Growth At 1 Day Preliminary ReportNo Growth At 2 DaysSTAIN REPORTS Stain ReportRare Wbc'S; No Organisms Seen
--- OUTSIDE RECORDS SUMMARY | 2018-12-15 18:10 | XMS REPORT | CCD ---
:1945 Author Organization [facility] Care Team Providers Name Role Phone JOSUÉ [...] Provider Unavailable Jaswant Rizvi Consulting Provider Unavailable Soraya Burden Consulting Provider Unavailable Marshall Funk Consulting Provider [phone] Katie Christianson Consulting Provider Breanna Blackmon Consulting Provider Mahendra Rowley Consulting Provider Unavailable SYSTEM, SYSTEM Consulting Provider Unavailable Estefania Zarate Consulting Provider Unavailable Mercy Arita Consulting Provider Sammi Rizvi Consulting Provider Sary Drake Consulting Provider Jesus Franklin Consulting Provider [phone] Reese Wadsworth Consulting Provider Unavailable Jacki Wadsworth [...] Medication Instructions Start Date End Date Status [place] 5/325 oral tablet 1 tab, Route: PO, [...] Duration: 30 day, Stop date: 04/12/11 21:00:00 [place] Thyroid 120 mg, 2 tab, Route: 03/14/2011 [...] 03/14/2011 03/15/2011 Discontinued PO, Drug form: TAB, [id number], Start date: 03/14/11 7:00:00, Duration: 30 day, [...] clinical recommendations of the [place] [employer].13Result Comment: Collection date/time has been modified to: 01:50:00. Previous collection date/time: 01:50:00.14Interpretive Data: Reference Ranges : 0 - 7 days : 41 - 90 mg/dL7 days - 150 yrs : 70 - 99 mg/dL (fasting), based on the clinical recommendations of the [place] [employer].15Interpretive Data: Reference Ranges : 0 - 7 days : 41 - 90 mg/dL7 days - 150 yrs : 70 - 99 mg/dL (fasting), based on the clinical recommendations of the [place] [employer].16Result Comment: Collection date/time has been [...] Seen] Slight 50 ? (03/14/2011 01:50:00) ?? [place] [facility] [>None Seen] Slight 51 ? *ABN* [...]
--- OUTSIDE RECORDS SUMMARY | 2018-12-15 18:10 | XMS REPORT | CCD ---
:1945 Author Organization [facility] Care Team Providers Name Role Phone JOSUÉ Simon Consulting Provider Unavailable Moise Morelos Consulting Provider Unavailable Sharon Kimbrough Consulting Provider Unavailable Leoncio Singleton Consulting Provider Unavailable June Mares Consulting Provider Katia Borrego Consulting Provider Unavailable Chaitanya Crowe Consulting Provider Brigitte Acevedo Consulting Provider Jessica Dotson Consulting Provider Darlene Christie Consulting Provider Unavailable Jessica Corey Consulting Provider [phone] Deepika Patel Consulting Provider Unavailable Aissatou Bowman Consulting Provider Simran Wagoner Consulting Provider Unavailable Yulissa Quintero Consulting Provider Unavailable Franci Lange Consulting Provider Елена Georges Consulting Provider Unavailable Isela Herman Consulting Provider Unavailable Anny Baldwin Consulting Provider [phone] Lauren Fang Consulting Provider Unavailable Octavio Wu Consulting Provider Unavailable Kennedi Dunbar Consulting Provider Unavailable Cm Junior Consulting Provider [phone] Sylvia Aguilar Consulting Provider Unavailable Stephanie Ely Consulting Provider Unavailable June Demarco Consulting Provider Unavailable Casi Soto Consulting Provider Unavailable Casandra Caceres Consulting Provider Unavailable Zaynab Mirza Consulting Provider Unavailable Jaswant Rizvi Consulting Provider Unavailable Radha Soto Consulting Provider Unavailable Breanna Jung Consulting Provider Unavailable Katie Christianson Consulting Provider Val Walker Consulting Provider Gemma Brizuela Consulting Provider [id number] Fransisca Gallo Consulting Provider [phone] Norah Donald Consulting Provider Unavailable Emilia Pearson [...] Consulting Provider Unavailable Lulu Fu Consulting Provider [phone] Marley Villarreal Consulting Provider Unavailable Radha Merrill [...] Nausea & Vomiting, Start date: 02/26/11 17:39:00 [place] Thyroid 120 mg, 2 tab, Route: 02/27/2011 [...] Duration: 30 day, Stop date: 03/28/11 10:00:00 [place] 5/325 oral tablet 1 tab, Route: PO, [...] Duration: 30 day, Stop date: 03/28/11 21:00:00 [place] 7.5/325 oral tablet 1 tab, Route: PO, [...] tablet Bedtime, 40 tab, Substitution Allowed, TAB [place] 5/325 oral tablet 1 tab, PO, Q4H, PRN, 40 03/06/2011 ?? Ordered tab, Pain, Substitution Allowed, Maintenance, TAB Novolin N 100 units/mL 10 unit, SUB-Q, BID, 10 03/06/2011 ?? Ordered subcutaneous injection ml, Substitution Allowed, SUSP [place] Thyroid 60 mg oral 120 mg, 2 [...] based on the clinical recommendations of the [place] [employer].6Interpretive Data: Reference Ranges : 0 - 7 days : 41 - 90 mg/ dL7 days - 150 yrs : 70 - 99 mg/dL (fasting), based on the clinical recommendations of the [place] [employer].HEMATOLOGY Most recent to oldest 1 [...]
--- OUTSIDE RECORDS SUMMARY | 2018-12-15 18:11 | XMS REPORT ---
:1945 Author Organization [facility] Address [address] [place] [address] Dr. Tillman [address] [place] [id number] Care Team Providers Name Role Phone RUMA SANTANA Unavailable Unavailable Problems This patient has no known problems. Allergies, Adverse Reactions, Alerts This patient has no known allergies or adverse reactions. Medications This patient has no known medications. Encounters Start End Encounter Admission Attending Care Care Encounter Date/Time Date/Time Type Type Clinicians Facility Department ID 2018-08-16 Inpatient E [facility] [id number] 23:35:00 2018-11-29 2018-11-29 Emergency E [facility] [id number] 07:33:00 07:33:00 2018-09-21 2018-09-21 Outpatient U [facility] [id number] 18:06:00 18:06:00 2018-09-12 2018-09-10 Inpatient U [facility] [id number] 15:01:00 00:20:00 2018-09-09 2018-09-08 Inpatient U [facility] [id number] 11:57:00 09:51:00 Results Test Description Test Time Test Comments Text Results Atomic Results Result Comments TISSUE EXAM 2017-02-26 15:21:00 Surgical Pathology Report Case: [id number] Authorizing Provider: Ruma Santana MD Collected: 02/24/2017 1559 Ordering Location: [facility] Received: 02/25/2017 0810 Pathologist: Kenji [...] SERRATED POLYP/ADENOMA Signing Pathologist Direct Phone Line: [phone] signed by Kenji Hercules MD on 02/26/2017 at 3:21 [id number] x 3Diarrhea, rule out microscopic colitisA. Right/ascending [...] (BEAKER) (test 144 mg/dL 70-110 TESTED AT [address] gido=[id number]) [facility] [id number] POCT-GLUCOSE [id number] 14:21:00 Test Item Value Reference Range Comments POC-GLUCOSE METER (BEAKER) 118 mg/dL 70-110 TESTED AT [address] (test zbwn=[id number]) [place] [id number]
--- OUTSIDE RECORDS SUMMARY | 2018-12-15 18:11 | XMS REPORT | CCD ---
:[address] [facility] Care Team Providers Name Role Phone Kasi Moses Consulting Provider Unavailable JOSUÉ Simon Consulting Provider Unavailable Yoandy Wellington Consulting Provider Sharon Kimbrough Consulting Provider Unavailable Abby Olivia Consulting Provider [phone] Rossana Gomes Consulting Provider Ronald Hernandes Consulting Provider Unavailable Geovanni Navarrete Consulting Provider Unavailable Shirley aDvis Consulting Provider Unavailable Breanna Pelayo Consulting Provider [...] Consulting Provider Unavailable Kira Sharpe Consulting Provider [phone] Eduardo Gallo Consulting Provider Odalys Vang Consulting Provider Unavailable Kaela Woods Consulting Provider Unavailable Vicky U[place] My Consulting Provider Michelle Landers Consulting Provider Unavailable Shirley José Consulting Provider Soco Taylor Consulting Provider Unavailable Jaswant Rizvi Consulting Provider Unavailable Deb Bazzi Consulting Provider Unavailable Robert Pritchett Consulting Provider Unavailable Saundra Zambrano Consulting Provider [phone] Do, Sa D Consulting Provider Erica Soto Consulting Provider Darcy Rosales Consulting Provider Unavailable Martha Dumont Consulting Provider Unavailable Socorro Oakley Consulting Provider Unavailable Mahendra Rowley Consulting Provider Unavailable Idania Antonio Consulting Provider Unavailable Zackery Leos Consulting Provider [phone] SYSTEM, SYSTEM Consulting Provider Unavailable Juan J Clay Consulting Provider Unavailable Andre Palomo Consulting Provider Unavailable Qamar Leos Consulting Provider [phone] Jacki Wadsworth Consulting Provider Unavailable Clari Islas Consulting Provider [id number] Anju Bhatti Consulting Provider Unavailable Caden Dang Consulting Provider Unavailable Liberty Wei Consulting Provider Unavailable Noreen Egan Consulting Provider Unavailable Alicja Ramirez Consulting Provider [id number] Rosanna Barber Consulting Provider [phone] Megha Reyes Consulting Provider Caroline Abreu Consulting Provider Unavailable Carly Wadsworth Consulting Provider Unavailable Layla Ortiz Consulting Provider Unavailable PCP, Pt doesnt Remember Remember Consulting Provider Unavailable Kelvin Dorado Consulting Provider [phone] Sylvia Berg Consulting Provider Unavailable Joe Meléndez [...] Duration: 30 day, Stop date: 04/21/11 9:00:00 [place] Thyroid 120 mg, 2 tab, Route: 03/24/2011 [...] date: 03/23/11 19:12:00, Stop date: 03/23/11 19:12:00 [place] 5/325 oral tablet 1 tab, Route: PO, [...] Duration: 30 day, Stop date: 04/20/11 21:00:00 [place] Thyroid 120 mg, 0.5 tab, Route: 03/23/2011 [...] based on the clinical recommendations of the [place] [employer].5Interpretive Data: Reference Ranges : 0 - 7 days : 41 - 90 mg/dL7 days - 150 yrs : 70 - 99 mg/dL (fasting), based on the clinical recommendations of the [place] [employer].6Interpretive Data : Reference Ranges : 0 - 7 days : 41 - 90 mg/dL7 days - 150 yrs : 70 - 99 mg/dL (fasting), based on the clinical recommendations of the [place] [employer].HEMATOLOGY Most recent to oldest 1 [...] to Nyasia Santana will recollect in the [id number] 16:39RG
--- NOTE | 2018-12-15 18:46 | RAD REPORT ---
EXAM DESCRIPTION: RAD - Chest Single View - 12/15/2018 6:40 pm CLINICAL HISTORY: edema Chest pain. COMPARISON: <Comparisons> FINDINGS: Portable technique limits examination quality. The lungs are grossly clear. Small left pleural effusion likely present. HARNESS [employer]ER shunt tubing projects ove r the left medial chest.The heart is mildly enlarged in size.
[2018-12-15] MEDS ORDERED: FUROSEMIDE 20 MG/ 2ML VIAL ONE (18:47)
[2018-12-15 18:51] LABS: Absolute Lymphocytes (CBC) 1.6 K/uL (0.7-4.9); Basophils % 0.2 % (0-1.3); Hematocrit 45.2 % (36.0-45.0); Lymphocytes % 12.3 % (15.3-44.8); MPV 9.5 fL (7.6-11.3); Monocytes % 1.5 % (3.3-12.3); RBC Red Blood Cell Count 4.71 M/uL (3.86-4.86)
[2018-12-15 18:52] LABS: Protime INR 0.89
[2018-12-15 18:58] LABS: Albumin 3.1 g/dL (3.4-5.0); Bilirubin Direct 0.1 mg/dL (0-0.2); Bilirubin Total 0.5 mg/dL (0.2-1.0); Magnesium 2.1 mg/dL (1.8-2.4); Potassium 4.7 mmol/L (3.5-5.1); Protein, Total 7.5 g/dL (6.4-8.2); Troponin (Emerg Dept Use Only) 0.04 ng/mL (0.0-0.045)
[2018-12-15 20:08] LABS: Blood Morphology Comment NOT SEEN (NOT SEEN); Platelet Estimate ADEQ; Urine White Blood Cell Casts OK
[2018-12-15] MEDS ORDERED: INSULIN -REGULAR HUMAN 50 UNIT/0.5 ML ML ONE (20:44)
--- NOTE | 2018-12-15 21:44 | ER ---
Nurse's Notes [facility] Name: Franci Lange Age: 73 yrs Sex: Female : 1945 Arrival Date: 12/15/2018 Time: 17:21 Bed 7 Private MD: Manfred Pearson R Diagnosis: Edema, unspecified;Hyperglycemia, unspecified Presentation: 12/15 17:24 Presenting complaint: Patient states: i have swollen feet for at least 2 weeks now and hj my blood glucose this morning was 342; been taking prednisone for myasthenia gravis per ; denies SOB, reports back pain. Transition of care: patient was not received from another setting of care. Onset of symptoms was December 15, 2018. Risk Assessment: Do you want to hurt yourself or someone else? Patient reports no desire to harm self or others. Initial Sepsis Screen: Does the patient meet any 2 criteria? No. Patient's initial sepsis screen is negative. Does the patient have a suspected source of infection? No. Patient's initial sepsis screen is negative. Care prior to arrival: None. 17:24 Method Of Arrival: Ambulatory 17:24 Acuity: JAY 3 hj Historical: - Allergies: 17:26 Aspirin; hj 17:26 cefepime; hj 17:26 CEPHALOSPORINS; hj 17:26 Ciprofloxacin; hj 17:26 Cortizone-10; hj 17:26 PENICILLINS; hj 17:26 Phenobarbital; hj - PMHx: 17:26 Diabetes - IDDM; Myocardial infarction; hj - PSHx: 17:26 brain; hj - Immunization history:: Adult Immunizations up to date. - Social history:: Smoking status: Patient/guardian denies using tobacco. - Ebola Screening: : No symptoms or risks identified at this time. Screenin:58 Abuse screen: Denies threats or abuse. Denies injuries from another. Nutritional hb screening: No deficits noted. Tuberculosis screening: No symptoms or risk factors identified. Fall Risk None identified. Assessment: 17:45 General: Appears in no apparent distress. Behavior is calm, cooperative. Pain: Denies hb pain. Neuro: Level of Consciousness is awake, alert, obeys commands, Oriented to person, place, time, situation. Cardiovascular: Capillary refill < 3 seconds Patient's skin is warm and dry. Edema 3+ pitting bilateral pedal edema. Respiratory: Airway is patent Respiratory effort is even, unlabored, Respiratory pattern is regular, symmetrical, Breath sounds are clear bilaterally. GI: No signs and/or symptoms were reported involving the gastrointestinal system. : No signs and/or symptoms were reported regarding the genitourinary system. EENT: No signs and/or symptoms were reported regarding the EENT system. Derm: Skin is intact, is healthy with good turgor, Skin is pink, warm \T\ dry. Musculoskeletal: No signs and/or symptoms reported regarding the musculoskeletal system. 19:55 General: Appears in no apparent distress. Behavior is calm, cooperative. Pain: Denies ea pain. Neuro: Level of Consciousness is awake, alert, obeys commands, Oriented to person, place, time, situation. Cardiovascular: Patient's skin is warm and dry. Respiratory: Airway is patent Respiratory effort is even, unlabored, Respiratory pattern is regular, symmetrical. Derm: Skin is pink, warm \T\ dry. 20:55 Reassessment: Patient and/or family updated on plan of care and expected duration. Pain ea level reassessed. Patient is alert, oriented x 3, equal unlabored respirations, skin warm/dry/pink. 21:48 Reassessment: Patient and/or family updated on plan of care and expected duration. Pain ea level reassessed. Patient is alert, oriented x 3, equal unlabored respirations, skin warm/dry/pink. 22:10 Reassessment: Patient and/or family updated on plan of care and expected duration. Pain ea level reassessed. Patient is alert, oriented x 3, equal unlabored respirations, skin warm/dry/pink. Discharge instruction given to patient, verbalized the understanding of instruction. Pt left ED via wheelchair per , pt tolerating well. Vital Signs: 17:26 BP 119 / 54; Pulse 76; Resp 18; Temp 97.9(TE); Pulse Ox 96% on R/A; Weight 97.52 kg; hj Height 4 ft. 11 in. (149.86 cm); 20:00 BP 120 / 60; Pulse 70; Resp 18; Temp 98; Pulse Ox 97% ; ea 22:00 BP 122 / 60; Pulse 70; Resp 18; Temp 97.6; Pulse Ox 97% ; ea 17:26 Body Mass Index 43.42 (97.52 kg, 149.86 cm) ED Course: 17:21 Patient arrived in ED. as 17:22 Manfred Pearson MD is Private Physician. as 17:26 Triage completed. 17:26 Arm band placed on right wrist. 17:30 Crispin Rowell PA is PHCP. [facility] 17:30 Bob Callahan MD is Attending Physician. [facility] 17:47 Alanis Almonte, RENAY is Primary Nurse. ph 18:01 Patient has correct armband on for positive identification. Bed in low position. Call hb light in reach. Side rails up X 1. 18:34 Initial lab(s) drawn, by me, sent to lab. Inserted saline lock: 22 gauge in left upper iw arm, using aseptic technique. Blood collected. 18:42 XRAY Chest (1 view) In Process Unspecified. EDMS 19:06 Notified Nurse Practitioner and/or Physician Guinea Pig Breeder of a critical lab result(s), hb GLUC 452. 21:43 Manfred Pearson MD is Referral Physician. [facility] 22:02 No provider procedures requiring assistance completed. IV discontinued, intact, ea bleeding controlled, No redness/swelling at site. Pressure dressing applied. Administered Medications: 19:02 Drug: Lasix 20 mg Route: IVP; Site: right antecubital; hb 22:00 Follow up: Response: No adverse reaction ea 20:30 Drug: Insulin Regular Human 9 units {Co-Signature: eduardo (Joselin Ennis RN).} {Note: CBG rr5 452mg/dl.} Route: IVP; Site: left upper arm; 22:00 Follow up: Response: No adverse reaction ea 21:59 Drug: Tylenol #3 (300 mg-30 mg) 1 tablet Route: PO; ea 21:59 Follow up: Response: Medication administered at discharge. ea Point of Care Testing: Blood Glucose: 21:32 Blood Glucose: 369 mg/dL; rr5 Ranges: Outcome: 21:43 Discharge ordered by . [facility] 22:02 Discharged to home via wheelchair, with significant other. ea 22:02 Condition: stable 22:02 Discharge instructions given to patient, Instructed on discharge instructions, follow up and referral plans. Demonstrated understanding of instructions, follow-up care. 22:11 Patient left the ED. ea Signatures: Dispatcher [employer] EDMS Crispin Rowell, PA PA jmm Medhat, Anne as Qi Hair, RENAY NIÑO iw Alanis Almonte RN RN Orville Loo, RN Alice Wheat, Joselin Stewart RN, RN RN ea Roque, Raymond RN RN rr5 Joselin Ennis RN, ea Corrections: (The following items were deleted from the chart) 17:46 17:24 Presenting complaint: Patient states: i have swollen feet for at least 2 weeks hj and my blood glucose this morning was 342; been taking prednisone for myasthenia gravis per ; hj
--- NOTE | 2018-12-15 21:44 | EDPHYS ---
Physician Documentation [facility] Name: Franci Lange Age: 73 yrs Sex: Female : 1945 Arrival Date: 12/15/2018 Time: 17:21 Bed 7 Private MD: Manfred Pearson R ED Physician Bob Callahan HPI: 12/15 17:46 This 73 yrs old Female presents to ER via Ambulatory with complaints of jmm Edema, High Blood Sugar. 17:46 The patient presents with swelling. Onset: The symptoms/episode began/occurred jmm gradually, 2 week(s) ago. Modifying factors: The symptoms are alleviated by elevating leg, the symptoms are aggravated by movement, standing. This is a 73 year old female whit a history of dm that presents to the ED with lower extremity swelling which has been ongoing for the past 2 weeks. Patient denies pain, denies shortness of breath. Patient was recently diagnosed with myasthenia gravis and given 60 mg of prednisone daily which increased patient's swelling as long as her blood glucose level. Family is concerned about the patient's kidney function after consulting with the patient's manager combination and neurologist. . Historical: - Allergies: 17:26 Aspirin; hj 17:26 cefepime; hj 17:26 CEPHALOSPORINS; hj 17:26 Ciprofloxacin; hj 17:26 Cortizone-10; hj 17:26 PENICILLINS; hj 17:26 Phenobarbital; hj - PMHx: 17:26 Diabetes - IDDM; Myocardial infarction; hj - PSHx: 17:26 brain; hj - Immunization history:: Adult Immunizations up to date. - Social history:: Smoking status: Patient/guardian denies using tobacco. - Ebola Screening: : No symptoms or risks identified at this time. ROS: 17:46 Constitutional: Negative for fever, chills, and weight loss, Cardiovascular: Negative jmm for chest pain, palpitations, and edema, Respiratory: Negative for shortness of breath, cough, wheezing, and pleuritic chest pain, Abdomen/GI: Negative for abdominal pain, nausea, vomiting, diarrhea, and constipation. 17:46 MS/extremity: Positive for swelling. 17:46 All other systems are negative. Exam: 17:46 Constitutional: This is a well developed, well nourished patient who is awake, alert, jmm and in no acute distress. Head/Face: atraumatic. Eyes: EOMI, no conjunctival erythema appreciated ENT: Moist Mucus Membranes Neck: Trachea midline, Supple Chest/axilla: Normal chest wall appearance and motion. Cardiovascular: Regular rate and rhythm. No edema appreciated Respiratory: Normal respirations, no respiratory distress appreciated Abdomen/GI: Non distended, soft Back: Normal ROM Skin: General appearance color normal 17:46 Musculoskeletal/extremity: pitting edema noted to the lower extremities, full dorsalis pulse, nvi. 17:46 Skin: Appearance: Color: normal in color. 17:46 Neuro: Orientation: is normal, Mentation: is normal, Memory: is normal. 17:46 Psych: Behavior/mood is pleasant, cooperative. Vital Signs: 17:26 BP 119 / 54; Pulse 76; Resp 18; Temp 97.9(TE); Pulse Ox 96% on R/A; Weight 97.52 kg; hj Height 4 ft. 11 in. (149.86 cm); 20:00 BP 120 / 60; Pulse 70; Resp 18; Temp 98; Pulse Ox 97% ; ea 22:00 BP 122 / 60; Pulse 70; Resp 18; Temp 97.6; Pulse Ox 97% ; ea 17:26 Body Mass Index 43.42 (97.52 kg, 149.86 cm) MDM: 17:46 Patient medically screened. [facility] 21:18 Data reviewed: vital signs, nurses notes. Counseling: I had a detailed discussion with salazar the patient and/or guardian regarding: the historical points, exam findings, and any diagnostic results supporting the discharge/admit diagnosis, lab results, radiology results, the need for outpatient follow up, to return to the emergency department if symptoms worsen or persist or if there are any questions or concerns that arise at home. ED course: Patient is alert and non toxic in appearance in the ED. Creat wnl. Elevated bgl but no anion gap. Family will adjust insulin administration to accommodate. Family advised to follow up with pcp and otherwise given strict return precautions. Family understood and agrees with the plan of care. . 12/15 17:47 Order name: Basic Metabolic Panel [facility] 12/15 17:47 Order name: CBC with Diff [facility] 12/15 17:47 Order name: LFT's [facility] 12/15 17:47 Order name: Magnesium; Complete Time: 19:[address] [facility] 12/15 17:47 Order name: NT PRO-BNP; Complete Time: 19:[address] [facility] 12/15 17:47 Order name: PT-INR; Complete Time: 19:[address] [facility] 12/15 17:47 Order name: Troponin (emerg Dept Use Only); Complete Time: 19:[address] [facility] 12/15 17:47 Order name: XRAY Chest (1 view); Complete Time: 18:[address] [facility] 12/15 17:48 Order name: Basic Metabolic Panel; Complete Time: 19:10 [facility] 12/15 17:49 Order name: CBC with Automated Diff; Complete Time: 20:14 [facility] 12/15 17:49 Order name: Liver (Hepatic) Function; Complete Time: 19:10 [facility] 12/15 19:08 Order name: CBC Smear Scan; Complete Time: 20:14 [facility] 12/15 17:47 Order name: Cardiac monitoring; Complete Time: 17:[address] [facility] 12/15 17:47 Order name: EKG - Nurse/Tech [facility] 12/15 17:47 Order name: IV Saline Lock; Complete Time: 17:[address] [facility] 12/15 17:47 Order name: Labs collected and sent; Complete Time: 18:[address] [facility] 12/15 17:47 Order name: O2 Per Protocol; Complete Time: 17:[address] [facility] 12/15 17:47 Order name: O2 Sat Monitoring; Complete Time: 17:58 jm Administered Medications: 19:02 Drug: Lasix 20 mg Route: IVP; Site: right antecubital; hb 22:00 Follow up: Response: No adverse reaction ea 20:30 Drug: Insulin Regular Human 9 units {Co-Signature: eduardo (Joselin Ennis RN).} {Note: CBG rr5 452mg/dl.} Route: IVP; Site: left upper arm; 22:00 Follow up: Response: No adverse reaction ea 21:59 Drug: Tylenol #3 (300 mg-30 mg) 1 tablet Route: PO; ea 21:59 Follow up: Response: Medication administered at discharge. ea Point of Care Testing: Blood Glucose: 21:32 Blood Glucose: 369 mg/dL; rr5 Ranges: Critical Glucose Levels:Adult <50 mg/dl or >400 mg/dl <40 mg/dl or >180 mg/dl Disposition: 12/15/18 21:43 Discharged to Home. Impression: Edema, unspecified, Hyperglycemia, unspecified. - Condition is Stable. - Discharge Instructions: Hyperglycemia, [id number], Peripheral Edema. - Medication Reconciliation Form, Thank You Letter, Antibiotic Education, Prescription Opioid Use form. - Follow up: Manfred Pearson MD; When: 2 - 3 days; Reason: Recheck today's complaints, Continuance of care, Re-evaluation by your physician. Signatures: Dispatcher [employer] EDMS Crispin Rowell PA PA jmm Joaquin, Henry, RN RN Alice Aranda, RN RN Joselin Edwards RN RN Pako Comer, RN RN rr5 Joselin Ennis RN, ea Corrections: (The following items were deleted from the chart) 22:11 21:43 12/15/2018 21:43 Discharged to Home. Impression: Edema, unspecified; ea Hyperglycemia, unspecified. Condition is Stable. Forms are Medication Reconciliation Form, Thank You Letter, Antibiotic Education, Prescription Opioid Use. Follow up: Manfred Pearson; When: 2 - 3 days; Reason: Recheck today's complaints, Continuance of care, Re-evaluation by your physician. salazar
[2018-12-15] MEDS ORDERED: CODEINE 30MG/APAP 300MG TAB ONE (22:04)
[2018-12-15 22:29] VITALS: O2SAT 97
[2018-12-15 22:30] VITALS: BP 122/60; TEMP 97.6
== END 2018-12-15 22:11 | disposition home or self-care (01) ==
LOC: ER 17:19
DX: R60.0 Localized edema (principal); E11.65 Type 2 diabetes mellitus with hyperglycemia; I25.2 Old myocardial infarction; Z88.6 Allergy status to analgesic agent; Z88.1 Allergy status to other antibiotic agents; Z88.0 Allergy status to penicillin; Z88.8 Allergy status to other drugs, medicaments and biological substances; Z79.4 Long term (current) use of insulin
CPT/HCPCS: 85025; 80048; 36415; 83735; 85610; 80076; 84484; 83880; 71045; J1940; 82962; 99284

== ENCOUNTER 2018-12-24 10:07 | Emergency (ER) | payer OTHER ==
[2018-12-24] MEDS ORDERED: WATER FOR INJ,STERILE 10 ML IV ONE (10:08)
[2018-12-24] MEDS ORDERED: VECURONIUM 10 MG/VIAL IV ONE (10:08)
[2018-12-24] MEDS ORDERED: ETOMIDATE 20 MG/10 ML VIAL IV ONE (10:08)
[2018-12-24] MEDS ORDERED: SUCCINYLCHOLINE 20 MG/ML (10 ML) IV ONE (10:08)
--- OUTSIDE RECORDS SUMMARY | 2018-12-24 10:09 | XMS REPORT | Clinical Summary ---
:[address] [facility] Address [address] [place] [address] Care Team Providers Name Role Phone Manfred [...] Not on file Results Not on fileafter 12/23/2017 Insurance Payer Benefit Plan / Subscriber ID Type Phone Address Group [employer] - MEDICARE [employer] MEDICARE HMO xxxxxxxx [phone] [address] [place] [address] Advance Directives For more information, please contact:[address] [phone] Code Status Date Activated Date Inactivated Comments Full Code 02/13/2014 10:17 AM 02/13/2014 6:26 PM This code status was determined by: Patient
[2018-12-24] MEDS ORDERED: D50W 25 GM/50 ML SYRINGE IV ONE (10:41)
[2018-12-24 10:43] LABS: Blood Gas Oxyhemoglobin 92.6 % (94-97); Blood O2 Saturation 92.3 % (92-98.5)
--- OUTSIDE RECORDS SUMMARY | 2018-12-24 10:52 | XMS REPORT | Continuity of Care Document ---
:1945 Author Organization [employer] Care Team Providers Name Role Phone [employer] Unavailable Unavailable Problems Problem Status Onset Classification Date Comments Source Date Reported Acute 12/01/2018 [facility] right-sided [address] [place] [address] back pain DIABETIC Active [address] MYASTHENIA Active [facility] GRAVIS [address] [place] [address] DYSPHAGIA Active [address] RESOLVED VISION Active [facility] LOSS IN LEFT [address] [place] [address] EYE STROKE SYMPTOMS Active [address] SLURRED SPEECH Active [address] 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 Leticia,[facility] DEHYDRATION,SUE Active [facility] N CONTROL [address] [place] [address] BAD REACTION TO Active [facility] MEDICATION [address] [place] [address] LEG CRAMPS Active [address] DEHYDRATION Active [address] SDH Active 011 Rehabilitation DM - Diabetes Active Problem 03/27/2011 [facility] mellitus [address] [place] [address] HYDROCEPHALUS Active [address] BRAIN MASS Active 011 Rehabilitation BRAIN Active [facility] MASS/AWAKE 011 [facility] LIFE FLIGHT Active [address] Altered mental Active Problem 03/27/2011 [facility] Craniotomy Active Problem 03/27/2011 [facility] HTN - Active Problem 03/27/2011 [facility] Hypertension [facility] Lethargic Inactive Problem 03/27/2011 [facility] Meningioma of Active Problem 03/27/2011 [facility] brain [facility] Visual Active Problem 03/27/2011 [facility] Illness, 09/11/2018 [facility] unspecified [place] Myasthenia 09/26/2018 [facility] gravis without [facility] Center exacerbation Altered mental Active Problem 12/01/2018 [facility] status Neuro,[facility], DOMONIQUE Kelly,[facility] 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 Neuro,[facility], DOMONIQUE Kelly,[facility] CAD - Coronary Resolved Problem 12/01/2018 [facility] artery disease Neuro,[facility], DOMONIQUE Kelly,[facility] Craniotomy Active Problem 12/01/2018 [facility] Neuro,[facility], DOMONIQUE Kelly,[facility] DM - Diabetes Resolved Problem 12/01/2018 [facility] mellitus Neuro,[facility], DOMONIQUE Kelly,[facility] Heart failure3 Resolved Problem 12/01/2018 systilic [facility] Neuro,[facility], DOMONIQUE Kelly,[facility] HTN - Resolved Problem 12/01/2018 [facility] Hypertension Neuro,[facility], DOMONIQUE Kelly,[facility] Hypothyroid Resolved Problem 12/01/2018 [facility] Neuro,[facility], DOMONIQUE Kelly,[facility] Itching Active Problem 12/01/2018 [facility] Neuro,[facility], DOMONIQUE Kelly,[facility] Meningioma of Active Problem 12/01/2018 [facility] brain Neuro,[facility], DOMONIQUE Kelly,[facility] Morbid obesity Resolved Problem 12/01/2018 [facility] Neuro,[facility], DOMONIQUE Kelly,[facility] JD - Resolved Problem 12/01/2018 [facility] Obstructive Neuro,[facility] sleep apnea [facility], DOMONIQUE Kelly,[facility] Pain Active Problem 12/01/2018 [facility] Neuro,[facility], DOMONIQUE Kelly,[facility] Visual Active Problem 12/01/2018 [facility] disturbance Neuro,[facility], DOMONIQUE Kelly,[facility] Itching Active Problem 03/27/2011 [facility] Pain Active Problem 03/27/2011 [facility] BRAIN NEOPLASM Active NOS Rehabilitation ADMINISTRTVE Active [facility] COMMUNICAT Active [facility] HYDROCEPHALUS [facility] SUBDURAL Active [facility] DEHYDRATION Active [facility] SLURRED SPEECH Active [facility] ILLNESS, Active [facility] UNSPECIFIED [facility] OCULAR PAIN, Active [facility] RIGHT EYE [facility] UNQUALIFIED Active [facility] VISUAL LOSS, [place] LEFT EYE, ALEXIA MYASTHENIA Active [facility] GRAVIS WITHOUT Medical Center (ACUTE) EXACER Medications Medication Details Route Status Patient Ordering Order Source Instructions Provider Date Ibuprofen 400 mg, 1 tab, Inactive 11/29[facility] Route: PO, 2018 Medical Drug form: [place] TAB, ONCE, Dosing Weight 102.273, kg, Priority: STAT, Start date: 11/29/18 9:35:00 CDT, Stop date: 11/29/18 9:35:00 CDT, 0Notes: (Same as: Motrin) "Do Not Crush" Give with food. Tylenol 1,000 mg, 2 Inactive 11/29[facility] tab, Route: 2019 [facility] PO, Drug form: [place] TAB, ONCE, Dosing Weight 102.273, kg, Priority: STAT, Start date: 11/29/18 9:32:00 CDT, Stop date: 11/29/18 9:32:00 CDT, 0Notes: Max acetaminophen 4000 mg/day (4 gm/day). (Same as: Tylenol Extra Strength) Mestinon 60 mg, 1 tab, Inactive 09/23[facility] Route: PO, 2018 Medical Drug form: [facility], Q8Hnow, Dosing Weight 91.818, kg, Start date: 09/23/18 12:00:00 CDT, Duration: 30 day, Stop date: 10/23/18 4:00:00 CDTNotes: (Same as: Mestinon) Insulin Lispro 15 unit, 0.15 Inactive 09/23[facility] mL, Route: 2018 [facility] SUB-Q, Drug Center form: SOLN, TID-Before Meals, [...] from Date Glucagon 1 mg, Route: Inactive 09/23[facility] IM, Drug form: 2019 Medical PDR/INJ, PRN, [...] Famotidine 20 mg, 1 tab, No Longer [place] Route: PO, Active 2019 Medical Drug form: Center TAB, Daily, Dosing Weight 91.818, kg, Start date: 09/22/18 9:00:00 CDT, Duration: 30 day, Stop date: 10/21/18 9:00:00 CDTNotes: (Same as: Pepcid) sennosides, [facility] 8.6 mg, 1 tab, No Longer [place] 8.6 MG Oral Tablet Route: PO, Active [...] Ramipril 10 mg, 2 cap, No Longer [place] Route: PO, Active 2019 Medical Drug form: Center CAP, Daily, Dosing Weight 91.818, kg, Start date: 09/22/18 9:00:00 CDT, Duration: 30 day, Stop date: 10/21/18 9:00:00 CDTNotes: (Same as:Altace) Prednisone 60 mg, 3 tab, No Longer [place] Route: PO, Active 2018 Medical Drug form: Center TAB, Daily, Dosing Weight 91.818, kg, Start date: 09/22/18 9:00:00 CDT, Duration: 30 day, Stop date: 10/21/18 9:00:00 CDTNotes: Take with food. Furosemide 20 MG 20 mg, 1 tab, No Longer [place] Oral Tablet Route: PO, Active 2018 Medical Drug form: Center TAB, Every Other Day, Dosing Weight 91.818, kg, Start date: 09/22/18 9:00:00 CDT, Duration: 30 day, Stop date: 10/20/18 9:00:00 CDTNotes: (Same as: Lasix) May cause GI upset. Give with food or milk. Amlodipine 10 mg, 1 tab, No Longer [place] Route: PO, Active 2018 Medical Drug form: Center TAB, Daily, Dosing Weight 91.818, kg, Start date: 09/22/18 9:00:00 CDT, Duration: 30 day, Stop date: 10/21/18 9:00:00 CDTNotes: (Same as: Norvasc) Docusate Sodium 50 1 tab, Route: No Longer [facility] MG / sennosides, PO, Drug Form: Active 2019 Medical [facility] 8.6 MG Oral TAB, Dosing Center Tablet Weight 91.818, kg, Daily, Start date: 09/22/18 9:00:00 CDT, Duration: 30 day, Stop date: 10/21/18 9:00:00 CDTNotes: (Same as Senokot-S) Equiv. to Cassidy-Colace. Levothroid 88 mcg 88 microgram=1 Active [facility] (0.088 mg) oral tab, PO, 2019 Medical tablet Daily, 0 [place] Refill(s) rosuvastatin 20 mg, 2 tab, No Longer [place] Route: PO, Active 2018 Medical Drug form: [place] TAB, Bedtime, Dosing Weight 91.818, kg, Start [...] Sertraline 25 mg, 1 tab, No Longer [place] Route: PO, Active 2018 Medical Drug form: [place] TAB, Q24H, Dosing Weight 91.818, kg, Start date: 09/21/18 19:00:00 CDT, Duration: 30 day, Stop date: 10/20/18 19:00:00 CDTNotes: (Same as: Zoloft) Pyridostigmine 90 mg, 1.5 No Longer [place] tab, Route: Active 2019 Medical PO, Drug form: [place] TAB, Q8Hnow, Dosing Weight 91.818, kg, Start date: 09/21/18 19:00:00 CDT, Duration: 30 day, Stop date: 10/21/18 11:00:00 CDTNotes: (Same as: Mestinon) Dextrose 50% 25 gm, 50 mL, No Longer [place] Syringe Route: IVP, Active 2018 Medical Drug Form: [place] INJ, Dosing Weight 91.818, kg, PRN, PRN [...] Docusate 100 mg, 1 cap, No Longer [place] Route: PO, Active 2019 Medical Drug form: [facility] DOOLEY, Bedtime, Dosing Weight 91.818, kg, PRN Constipation, Start date: 09/21/18 18:18:00 CDT, Duration: 30 day, Stop date: 10/21/18 18:17:00 CDTNotes: (Same as: Colace) (Do Not Crush) Occupational See On Hold [facility] Therapy Instructions, 2019 [facility], [facility], [place] Evaluate and Treat __3_ times per week for __4__ weeks, # 1 bag, 0 Refill(s) Physical Therapy See On Hold [place] Instructions, 2019 [facility], [facility], [place] Evaluate and Treat _3__ times per week for __4__ weeks, # 1 bag, 0 Refill(s) Ramipril 10 mg, 2 cap, Inactive [place] Route: PO, 2019 Medical Drug form: [place] CAP, ONCE, Dosing Weight 91.378, kg, Priority: NOW, Start date: 09/19/18 10:56:00 CDT, Stop date: 09/19/18 10:56:00 CDTNotes: (Same as:Altace) Furosemide 20 MG 20 mg=1 tab, On Hold [facility] Oral Tablet PO, Every 2019 Medical Other Day, # Center 15 tab, 3 Refill(s) amLODIPine 10 mg 10 mg=1 tab, On Hold [facility] oral tablet PO, Daily, # 2019 Medical 30 tab, 3 Center Refill(s) predniSONE 20 mg 60 mg=3 tab, On Hold [place] oral tablet PO, Daily, X 2019 Medical 30 day, # 90 Center tab, 0 Refill(s) pyridostigmine 60 60 mg=1 tab, On Hold [place] mg oral tablet PO, Q8Hnow, # 2019 Medical 90 tab, 3 Center Refill(s) ramipril 5 mg oral 10 mg=2 cap, On Hold [place] capsule PO, Daily, # 2019 Medical 60 cap, 3 Center Refill(s) sennosides, [facility] 8.6 mg=1 tab, On Hold [place] 8.6 MG Oral Tablet PO, BID, X 30 2019 Medical day, # 60 tab, Center 3 Refill(s) sertraline 25 mg 25 mg=1 tab, On Hold [place] oral tablet PO, Q24H, # 30 2019 Medical tab, 0 Center Refill(s) insulin, isophane 12 unit, 0.12 No Longer [place] mL, Route: Active 2018 Medical SUB-Q, Drug [...] gabapentin 300 MG 300 mg, Route: Inactive [place] Oral Capsule PO, Drug form: 2019 Medical CAP, ONCE, Center Dosing Weight 91.378, kg, Start date: 09/18/18 0:54:00 CDT, Stop date: 09/18/18 0:54:00 CDT normal saline 0.9% 1,000 mL, No Longer [place] IV 1,000 mL Rate: 75 Active 2018 Medical ml/hr, Infuse Center over: 13.3 hr, Route: IV, Dosing Weight 91.378 kg, Total Volume: 1,000, Start date: 09/18/18 0:54:00 CDT, Duration: 30 day, Stop date: 10/18/18 0:53:00 CDT, 1.99, m2 ramipril 5 mg oral 10 mg=2 cap, No Longer [place] capsule PO, Daily, # Active 2019 Medical 30 cap, 1 Center Refill(s), Pharmacy: [facility]/pharmacy #[id number] metoprolol 25 mg=1 tab, No Longer [place] tartrate 25 mg PO, Q12H, # 60 Active 2019 Medical oral tablet tab, 1 Center Refill(s), Pharmacy: [facility]/pharmacy #[id number] Furosemide 20 MG 20 mg=1 tab, No Longer [place] Oral Tablet PO, Every Active 2019 Medical Other Day, # Center 30 tab, 1 Refill(s), Pharmacy: [facility]/pharmacy #[id number] amLODIPine 10 mg 10 mg=1 tab, No Longer [place] oral tablet PO, Daily, # Active 2019 Medical 30 tab, 1 Center Refill(s), Pharmacy: [facility]/pharmacy #[id number] sertraline 25 mg 25 mg=1 tab, No Longer [place] oral tablet PO, Q24H, # 30 Active 2018 Medical tab, 1 Center Refill(s), Pharmacy: [facility]/pharmacy #[id number] sennosides, [facility] 8.6 mg=1 tab, No Longer [place] 8.6 MG Oral Tablet PO, BID, # 60 Active 2018 Medical tab, 0 Center Refill(s), Pharmacy: [facility]/pharmacy #[id number] pyridostigmine 60 60 mg=1 tab, No Longer [place] mg oral tablet PO, Q8Hnow, # Active 2019 Medical 90 tab, 1 Center Refill(s), Pharmacy: [facility]/pharmacy #[id number] predniSONE 20 mg 60 mg=3 tab, No Longer [place] oral tablet PO, Daily, # Active 2018 Medical 30 tab, 1 Center Refill(s), Pharmacy: [facility]/pharmacy #[id number] Insulin regular 2 unit, 0.02 No [...] in 25 gm, 50 mL, No Longer [place] Water (bolus) IV Route: IVP, Active 2019 Medical Drug Form: Center INJ, Dosing Weight 91.378, kg, PRN, PRN Blood Glucose Results, Start date: 09/17/18 18:52:00 CDT, Duration: 30 day, Stop date: 10/17/18 18:51:00 CDT Melatonin 0.25 1 mg, Route: Inactive [place] mg/mL oral liquid PO, Dosing 2019 Medical Weight 91.378, Center kg, Bedtime, Start date: 09/16/18 21:00:00 CDT, Duration: 30 day, Stop date: 10/15/18 21:00:00 CDT insulin, isophane 5 unit, 0.05 No Longer [place] mL, Route: Active 2019 Medical SUB-Q, Drug [...] Amlodipine 10 mg, 1 tab, No Longer [facility] Route: PO, Active 2018 Medical Drug form: [place] TAB, Daily, Dosing Weight 91.378, kg, Start date: 09/16/18 9:00:00 CDT, Duration: 30 day, Stop date: 10/15/18 9:00:00 CDTNotes: (Same as: Norvasc) melatonin 1 mg/mL 1 mg, 1 mL, Inactive [place] oral solution Route: PO, 2018 Medical Drug Form: [place] LIQ, Dosing Weight 91.378, kg, ONCE, STAT, Start date: 09/16/18 0:53:00 CDT, Stop date: 09/16/18 0:53:00 CDT insulin, isophane 15 unit, Inactive [facility] Route: SUB-Q, 2018 Medical Drug form: [place] INJ, Q8H, Dosing Weight 91.378, kg, Start date: 09/16/18 0:00:00 CDT, Duration: 30 day, Stop date: 10/15/18 16:00:00 CDTNotes: (Same as: Humulin N) Roll in palms of hands gently; Do not shake vigorously. WASTE: F/P - Black; E - Municipal Trash Bin Stable for 31 days at room temperature Expires in days from Date Insulin regular 10 unit, 0.1 Inactive [place] mL, Route: 2019 Medical SUB-Q, Drug Center [...] Miralax 17 gm, 1 pkt, No Longer [facility] Route: GT, Active 2018 Medical Drug form: [place] PWDR, Daily, Dosing Weight 91.378, kg, Start date: 09/15/18 9:00:00 CDT, Duration: 30 day, Stop date: 10/14/18 9:00:00 CDTNotes: Dissolve in 8 oz of water or juice. (Same as: Miralax) lansoprazole 30 mg, 10 mL, No Longer [place] Route: GT, Active 2018 Medical Drug form: Center SUSP, Daily, Dosing Weight 91.378, kg, Start date: 09/15/18 9:00:00 CDT, Duration: 30 day, Stop date: 10/14/18 9:00:00 CDTNotes: Take 1 hour before or 2 hours after meal; Expires in 14 days. Shake well before use. (Same as:Prevacid) Compounded Product - formulation not commercially available insulin, isophane 15 unit, 0.15 Inactive [place] mL, Route: 2019 Medical SUB-Q, Drug Center [...] Flush 0.9% 10 ml, Route: No Longer [place] MISC, Drug Active 2018 Medical Form: INJ, Center Dosing Weight 91.378, kg, Q12H, Start date: 09/14/18 21:00:00 CDT, Duration: 30 day, Stop date: 10/14/18 9:00:00 CDTNotes: (Same as: BD Posiflush) Lasix 40 mg, 4 mL, Inactive [place] Route: IVP, 2018 Medical Drug form: Center INJ, ONCE, Dosing Weight 91.378, kg, Start date: 09/14/18 21:00:00 CDT, Stop date: 09/14/18 21:00:00 CDTNotes: (Same as: Lasix) MEDICATION WASTE Product Size: 40 mg Product Wasted: ___ mg docusate sodium 100 mg, 1 cap, No Longer [place] 100 mg oral Route: PO, Active 2019 Medical capsule Drug form: Center CAP, BID, Dosing Weight 91.378, kg, Start date: 09/14/18 17:00:00 CDT, Duration: 30 day, Stop date: 10/14/18 9:00:00 CDTNotes: (Same as: Colace) (Do Not Crush) sennosides, [facility] 8.6 mg, 1 tab, No Longer [place] Route: PO, Active 2019 Medical Drug Form: Center TAB, Dosing Weight 91.378, kg, BID, Start date: 09/14/18 17:00:00 CDT, Duration: 30 day, Stop date: 10/14/18 9:00:00 CDTNotes: (Same as: Senokot) insulin, isophane 10 unit, 0.1 Inactive [place] mL, Route: 2019 Medical SUB-Q, Drug Center [...] Insulin regular 12 unit, 0.12 No Longer [place] mL, Route: Active 2018 Medical SUB-Q, Drug [...] Date Glucagon 1 mg, Route: No Longer [facility] IM, Drug form: Active 2019 Medical PDR/INJ, PRN, Center Dosing Weight 91.378, kg, PRN Blood Glucose Results, Start date: 09/14/18 16:20:00 CDT, Duration: 30 day, Stop date: 10/14/18 16:19:00 CDT Dextrose 50% 12.5 gm, 25 No Longer [facility] Syringe mL, Route: Active 2019 Medical IVP, Drug Center Form: INJ, Dosing Weight 91.378, kg, PRN, PRN Blood Glucose Results, Start date: 09/14/18 16:20:00 CDT, Duration: 30 day, Stop date: 10/14/18 16:19:00 CDT Saline Flush 0.9% 10 ml, Route: No Longer [facility] IVP, Drug Active 2019 Medical Form: INJ, Center Dosing Weight 91.378, kg, PRN, PRN Line Flush, Start date: 09/14/18 11:01:00 CDT, Duration: 30 day, Stop date: 10/14/18 11:00:00 CDTNotes: (Same as: BD Posiflush) Nystatin 100 1 appl, Route: No Longer [place] UNT/MG Topical TOP, PRN, Drug Active 2018 Medical Powder form: PWDR, [place] PRN For Fungal Prophylaxis, Start date: 09/14/18 11:01:00 CDT, Duration: 30 day, Stop date: 10/14/18 11:00:00 CDTNotes: (Same as:Mycostatin, Nilstat) For external use only. Amlodipine 5 mg, 1 tab, No Longer [facility] Route: GT, Active 2019 Medical Drug form: [place] TAB, Daily, Dosing Weight 91.378, kg, Start date: 09/14/18 9:00:00 CDT, Duration: 30 day, Stop date: 10/13/18 9:00:00 CDTNotes: (Same as: Norvasc) Lasix 40 mg, 4 mL, Inactive [place] Route: IV, 2019 Medical Drug form: [place] INJ, ONCE, Dosing Weight 91.378, kg, Priority: NOW, Start date: 09/14/18 8:45:00 CDT, Stop date: 09/14/18 8:45:00 CDTNotes: (Same as: Lasix) MEDICATION WASTE Product Size: 40 mg Product Wasted: ___ mg Albuterol 0.833 3 ml, Route: No Longer [place] MG/ML / NEB, Drug Active 2019 Medical Ipratropium Form: SOLN, [place] 0.167 Dosing Weight MG/ML Inhalant 91.378, kg, Solution [DuoNeb] PRN, PRN Respiratory Pathway, Start date: 09/14/18 7:48:00 CDT, Duration: 30 day, Stop date: 10/14/18 7:47:00 CDTNotes: (Same as: Duoneb) Potassium Chloride 40 mEq, 30 mL, Inactive [place] 1.33 MEQ/ML Oral Route: GT, 2019 Medical Solution Drug form: [place] LIQ, ONCE, Dosing Weight 91.378, kg, Start date: 09/14/18 2:31:00 CDT, Stop date: 09/14/18 2:31:00 CDTNotes: (Same as: Potassium Chloride) Sertraline 25 mg, 1 tab, No Longer [facility] Route: PO, Active 2019 Medical Drug form: [place] TAB, Q24H, Dosing Weight 91.378, kg, Start date: 09/13/18 21:00:00 CDT, Duration: 30 day, Stop date: 10/12/18 21:00:00 CDTNotes: (Same as: Zoloft) Immunoglobulin G 25 gm, Route: No Longer [place] IV, Q24H, Active 2019 Medical Dosing Weight [place] 91.378, kg, Start date: 09/13/18 21:00:00 CDT, Duration: 1 day, Stop date: 09/13/18 21:00:00 CDT, Indication: Myasthenia gravis metoprolol 25 mg, 1 tab, No Longer [place] tartrate Route: PO, Active 2019 Medical Drug form: [place] TAB, Q12H, Dosing Weight 91.378, kg, Start date: 09/13/18 21:00:00 CDT, Duration: 30 day, Stop date: 10/13/18 9:00:00 CDTNotes: (Same as: Lopressor) Gamunex-C 25 gm + Route: IVPB, Inactive [facility] empty container 1 Drug form: 2019 Medical bag SOLN, Bedtime, Center Start date: 09/13/18 15:00:00 CDT, Duration: 1 doses or times, Stop date: 09/13/18 15:00:00 CDT, Indication: Myasthenia gravisNotes: WASTE: F/P - Red; E -Red Lot # ____Mfg: (Gamunex - C) "blood product derivative" iodixanol 100 mL, Route: Inactive [place] IVP, Drug 2019 Medical Form: SOLN, [place] Dosing Weight 91.378, kg, ONCALL, STAT, Start date: 09/13/18 11:50:00 CDT, Duration: 1 doses or times, Dose=2.2ml/kg, Max [id number] -- "To be infused by Radiology Staff ONLY" Prednisone 60 mg, 3 tab, No Longer [facility] Route: PO, Active 2019 Medical Drug form: Center TAB, Daily, Dosing Weight 91.378, kg, Start date: 09/13/18 9:00:00 CDT, Duration: 10 doses or times, Stop date: 09/22/18 9:00:00 CDTNotes: Take with food. pantoprazole 40 mg, Route: No Longer [facility] IVP, Drug Active 2019 Medical form: INJ, Center Daily, Dosing Weight 91.378, kg, Start date: 09/13/18 9:00:00 CDT, Duration: 30 day, Stop date: 10/12/18 9:00:00 CDTNotes: For IV push reconstitute with 10 ml 0.9% sodium chloride and push over 2 minutes. (Same as: Protonix) chlorhexidine 15 mL, Route: No Longer [facility] gluconate 1.2 Swab Mouth, Active 2019 Medical [...] being intubated (unless the nurse is a REAR ADMIRAL). Same as: Diprivan Rocuronium 20 mg, 2 mL, Inactive [facility] Route: IV, 2018 Medical Drug form: [place] SOLN, ONCE, Dosing Weight 91.378, kg, Start date: 09/13/18 6:01:00 CDT, Stop date: 09/13/18 6:01:00 CDTNotes: (Same as: Zemeron) Fentanyl 250 microgram, Inactive [place] 5 mL, Route: 2019 Medical IV, Drug form: [place] INJ, ONCE, Dosing Weight 91.378, kg, Start date: 09/13/18 6:01:00 CDT, Stop date: 09/13/18 6:01:00 CDTNotes: (Same as: Sublimaze) Preservative free. Propofol 100 mg, 10 mL, Inactive [place] Route: IV, 2019 Medical Drug form: Center Emulsion, ONCE, Dosing Weight 91.378, kg, Start date: 09/13/18 6:01:00 CDT, Stop date: 09/13/18 6:01:00 CDTNotes: If Diprivan - change bottle & tubing every 12 hr Per state nursing law propofol can only be given by a nurse if patient is intubated or being intubated (unless the nurse is a REAR ADMIRAL). Same as: Diprivan ocular lubricant 1 appl, Route: No Longer [place] BOTH EYES, Active 2018 Medical Q6H, Drug Center form: OINT, Start date: 09/13/18 6:00:00 CDT, Duration: 30 day, Stop date: 10/13/18 0:00:00 CDTNotes: (Same as: Lacri-Lube, Puralube, Duratears Naturale, Artificial Tears, and Tears Again ) normal saline 0.9% 1,000 mL, No Longer [place] IV 1,000 mL Rate: 75 Active 2018 Medical ml/hr, Infuse Center over: 13.3 hr, Route: IV, Dosing Weight 91.378 kg, Total Volume: 1,000, Start date: 09/13/18 5:43:00 CDT, Duration: 30 day, Stop date: 10/13/18 5:42:00 CDT, 1.99, m2 chlorhexidine 15 mL, Route: No Longer [place] gluconate 1.2 Swab Mouth, Active 2018 Medical MG/ML Mouthwash PRN, Drug Center form: LIQ, PRN Other -See Comment, Start date: 09/13/18 2:43:00 CDT, Duration: 30 day, Stop date: 10/13/18 2:42:00 CDTNotes: (Same As: Peridex) Insulin regular 100 mL, Rate: No Longer [place] 100 unit + Start at 0.05 Active [...] Gamunex-C 75 gm + Route: IVPB, Inactive [facility] empty container 1 Drug form: 2019 Medical bag SOLN, Bedtime, Center Start date: 09/12/18 21:00:00 CDT, Duration: 1 doses or times, Stop date: 09/12/18 21:00:00 CDT, Indication: Myasthenia gravis Gamunex-C 50 gm + Route: IVPB, Inactive [facility] empty container 1 Drug form: 2019 Medical bag SOLN, Bedtime, Center Start date: 09/12/18 21:00:00 CDT, Duration: 1 doses or times, Stop date: 09/12/18 21:00:00 CDT, Indication: Myasthenia gravisNotes: WASTE: F/P - Red; E -Red Lot # ____Mfg: (Gamunex - C) Non-Formulary "blood product derivative" Pyridostigmine 60 mg, 1 tab, No Longer [place] Route: PO, Active 2019 Medical Drug form: [place] TAB, Q8Hnow, Dosing Weight 91.378, kg, Priority: STAT, Start date: 09/12/18 19:09:00 CDT, Duration: 30 day, Stop date: 10/12/18 11:09:00 CDTNotes: (Same as: Mestinon) Calcium Carbonate 1,000 mg, 2 No Longer [place] 500 MG Chewable tab, Route: Active 2018 Medical Tablet PO, Drug form: [place] CHEWTAB, PRN, Dosing Weight 91.378, kg, PRN Abnormal Lab Result, FOR ICU USE ONLY, Start date: 09/12/18 16:44:00 CDT, Duration: 30 day, Stop date: 10/12/18 16:43:00 CDTNotes: (Same As: Tums) Calcium Carbonate 500 na=347 mg elemental calcium Dose= mg calcium carbonate [...] Route: PO, Active 2018 Medical Drug form: [place] TAB, PRN, Dosing Weight 91.378, kg, PRN Abnormal Lab Result, FOR ICU USE ONLY, Start date: 09/12/18 16:44:00 CDT, Duration: 30 day, Stop date: 10/12/18 16:43:00 CDTNotes: (Same as: Mag-Ox 400) Magnesium oxide [id number] elemental magnesium Dose=____mg magnesium oxide (___mg elemental magnesium) Magnesium Sulfate 2 gm, 50 mL, No Longer [place] Route: IVPB, Active 2019 Medical Drug form: [place] INJ, PRN, Dosing Weight 91.378, kg, PRN Abnormal Lab Result, Start date: 09/12/18 16:44:00 CDT, Duration: 30 day, Stop date: 10/12/18 16:43:00 CDT, FOR ICU USE ONLYNotes: WASTE: F/P - Sink; E - Municipal Trash Bin potassium 2 pkt, Route: No Longer [place] phosphate-sodium PO, Drug Form: Active 2019 Medical phosphate 250 TAB, Dosing Center mg-280 mg-160 mg Weight 91.378, oral powder for kg, PRN, PRN reconstitution Abnormal Lab Result, FOR ICU USE ONLY, Start date: 09/12/18 16:44:00 CDT, Duration: 30 day, Stop date: 10/12/18 16:43:00 CDTNotes: (Same as: K-Phos Neutral, Phospha 250 Neutral) Potassium Chloride 20 mEq, 1 tab, No Longer [place] Route: PO, Active 2018 Medical Drug form: [place] ERTAB, PRN, Dosing Weight 91.378, kg, PRN [...] s with feeding tube less than 14 Turkmen (Dobhoff, J-tube etc) and pediatric and patients. sodium phosphate 15 mmol, 5 mL, No Longer [place] Route: IVPB, Active 2019 Medical PRN, Dosing [...] TPN. potassium 45 mmol, 15 No Longer [facility] phosphate mL, Route: Active 2019 Medical IVPB, [...] benzocaine topical 1 appl, Route: No Longer [facility] gel TOP, ONCE, Active 2019 Medical Drug form: [place] GEL, PRN Mouth Pain, Start date: 09/12/18 16:38:00 CDTNotes: (Same As: Maximum Strength PM Orajel ) Immunoglobulin G 75 gm, Route: Inactive [facility] IV, Drug form: 2019 Medical INJ, Q24H, [place] Dosing Weight 91.378, kg, Start date: 09/12/18 12:00:00 CDT, Duration: 1 doses or times, Stop date: 09/12/18 12:00:00 CDT, Indication: Myasthenia gravis Magnesium Sulfate 2 gm, 50 mL, Inactive [facility] Route: IVPB, 2019 Medical Drug form: [place] INJ, BID, Dosing Weight 91.378, kg, Start [...] Pyridostigmine 60 mg, 1 tab, No Longer [place] Route: PO, Active 2018 Medical Drug form: [place] TAB, Q8H, Dosing Weight 91.378, kg, Start date: 09/11/18 16:00:00 CDT, Duration: 30 day, Stop date: 10/11/18 8:00:00 CDTNotes: (Same as: Mestinon) Bacitracin 1 appl, Route: No Longer [place] RIGHT EYE, Active 2018 Medical Q4H, Drug Center form: OINT, Start date: 09/11/18 12:00:00 CDT, Duration: 30 day, Stop date: 10/11/18 8:00:00 CDT Labetalol 20 mg, 4 mL, No Longer [place] Route: IV, Active 2018 Medical Drug form: [place] INJ, Q10Min, Dosing Weight 91.378, kg, PRN Hypertension, Start date: 09/11/18 10:49:00 CDT, Duration: 30 day, Stop date: 10/11/18 10:48:00 CDT Hydralazine 10 mg, 0.5 mL, No Longer [place] Route: IV, Active 2018 Medical Drug form: [place] INJ, Q4H, Dosing Weight 91.378, kg, PRN Hypertension, Start date: 09/11/18 10:49:00 CDT, Duration: 30 day, Stop date: 10/11/18 10:48:00 CDTNotes: (Same as: Apresoline) metoprolol 50 mg, 1 tab, No Longer [place] extended release Route: PO, Active 2018 Medical Drug form: [place] ERTAB, Daily, Start date: 09/11/18 9:00:00 CDT, [...] Amlodipine 10 mg, 1 tab, No Longer [place] Route: PO, Active 2018 Medical Drug form: [...] sennosides, GT, Drug Form: Active 2019 Medical [facility] 8.6 MG Oral TAB, Dosing Center Tablet Weight 91.378, kg, Daily, Start date: 09/11/18 9:00:00 CDT, Duration: 30 day, Stop date: 10/10/18 9:00:00 CDTNotes: (Same as Senokot-S) Equiv. to Cassidy-Colace. Furosemide 20 MG 20 mg, 1 tab, No Longer [place] Oral Tablet Route: PO, Active 2019 Medical Drug form: Center TAB, Every Other Day, Dosing Weight 91.378, kg, Start date: 09/11/18 9:00:00 CDT, Duration: 30 day, Stop date: 10/09/18 9:00:00 CDTNotes: (Same as: Lasix) May cause GI upset. Give with food or milk. Gamunex-C 25 gm + Route: IVPB, No Longer [facility] empty container 1 Drug form: Active 2019 Medical bag SOLN, Q24H, Center Start date: 09/10/18 21:00:00 CDT, Duration: 5 doses or times, Stop date: 09/14/18 21:00:00 CDT, Indication: Myasthenia gravisNotes: For adults: use IBW of XX used for XX mg/kg per protocol WASTE: F/P - Red; E -Red Lot # ____Mfg: (Gamunex - C) "blood product derivative" rosuvastatin 20 mg, 2 tab, Inactive [facility] Route: PO, 2019 Medical Drug form: [place] TAB, Bedtime, Dosing Weight 91.378, kg, Start date: 09/10/18 21:00:00 CDT, Duration: 30 day, Stop date: 10/09/18 21:00:00 CDTNotes: (Same As: Crestor) heparin sodium, 5,000 unit, 1 Inactive [facility] porcine 2500 mL, Route: 2019 Medical UNT/ML Injectable SUB-Q, Drug Center Solution form: INJ, Q12H, Dosing Weight 91.378, kg, Start date: 09/10/18 21:00:00 CDT, Duration: 30 day, Stop date: 10/10/18 9:00:00 CDTNotes: porcine heparin Lacri-Lube 1 appl, Route: No Longer [facility] BOTH EYES, Active 2018 Medical BID, Drug Center form: OINT, Start date: 09/10/18 17:00:00 CDT, Duration: 30 day, Stop date: 10/10/18 9:00:00 CDTNotes: (Same as: Lacri-Lube, Puralube, Duratears Naturale, Artificial Tears, and Tears Again ) Pyridostigmine 60 mg, 1 tab, No Longer [place] Route: PO, Active 2018 Medical Drug form: [facility] TAB, BID, Dosing Weight 91.378, kg, Start date: 09/10/18 17:00:00 CDT, Duration: 30 day, Stop date: 10/10/18 9:00:00 CDTNotes: (Same as: Mestinon) Saline Flush 0.9% 5 mL, Route: No Longer [place] IV, Drug Form: Active 2019 Medical INJ, Dosing Center Weight 91.378, kg, PRN, PRN Line Flush, Start date: 09/10/18 16:47:00 CDT, Duration: 30 day, Stop date: 10/10/18 16:46:00 CDTNotes: (Same as: BD Posiflush) Benadryl 25 mg, 1 cap, No Longer [facility] Route: PO, Active 2018 Medical Drug form: [place] CAP, Daily, Dosing Weight 91.378, kg, PRN Other -See Comment, Start date: 09/10/18 16:47:00 CDT, Duration: 5 day, Stop date: 09/15/18 16:46:00 CDTNotes: (Same as: Benadryl) Solu-Medrol 40 mg, 1 mL, No Longer [facility] Route: IVP, Active 2018 Medical Drug form: Center INJ, Daily, Dosing Weight 91.378, kg, PRN Other -See Comment, Start date: 09/10/18 16:47:00 CDT, Duration: 5 day, Stop date: 09/15/18 16:46:00 CDTNotes: (Same as:Solu-MEDROL , A-Methapred) Zofran 4 mg, 2 mL, No Longer [facility] Route: IVP, Active 2018 Medical Drug form: Center INJ, Daily, Dosing Weight 91.378, kg, PRN Other -See Comment, Start date: 09/10/18 16:44:00 CDT, Duration: 5 day, Stop date: 09/15/18 16:43:00 CDTNotes: (Same as: Zofran) MEDICATION WASTE Product Size: 4 mg Product Wasted: ___ mg Immunoglobulin G 36 gm, Route: Inactive [place] IVPB, Drug 2018 Medical form: SOLN, Center Daily, Dosing Weight 91.378, kg, Start date: 09/10/18 16:42:00 CDT, Duration: 5 day, Stop date: 09/15/18 9:00:00 CDT, Indication: Other see comments Insulin regular 1 unit, 0.01 No Longer [place] mL, Route: Active 2019 Medical SUB-Q, Drug [...] units) WASTE: F/P - Black; E - Vir2us Trash Bin Stable for 28 days at room temperature Expires in days from Date Glucagon 1 mg, Route: No Longer [facility] IM, Drug form: Active 2018 Medical PDR/INJ, PRN, Center Dosing Weight 91.378, kg, PRN Blood Glucose Results, Start date: 09/10/18 8:17:00 CDT, Duration: 30 day, Stop date: 10/10/18 8:16:00 CDT Dextrose 50% 12.5 gm, 25 No Longer [facility] Syringe mL, Route: Active 2019 Medical IVP, Drug Center Form: INJ, Dosing Weight 91.378, kg, PRN, PRN Blood Glucose Results, Start date: 09/10/18 8:17:00 CDT, Duration: 30 day, Stop date: 10/10/18 8:16:00 CDT Saline Flush 0.9% 10 ml, Route: No Longer [facility] IVP, Drug Active 2019 Medical Form: INJ, Center Dosing Weight 91.378, kg, PRN, PRN Line Flush, Start date: 09/10/18 0:20:00 CDT, Duration: 30 day, Stop date: 10/10/18 0:19:00 CDTNotes: (Same as: BD Posiflush) Dextrose 5% with 1,000 mL, No Longer [place] 0.9% NaCl IV 1,000 Rate: 75 Active 2019 Medical mL ml/hr, Infuse Center over: 13.3 hr, Route: IV, Dosing Weight 91.378 kg, Total Volume: 1,000, Start date: 09/10/18 0:20:00 CDT, Duration: 30 day, Stop date: 10/10/18 0:19:00 CDT, 1.99, m2 Streptococcus 0.5 mL, Route: No Longer [place] pneumoniae IM, Drug Form: Active 2018 Medical serotype 1 INJ, ONCALL, [place] capsular antigen Start date: diphtheria [id number] 09/10/18 protein conjugate 0:11:25 CDT, vaccine / Stop date: Streptococcus 10/10/18 pneumoniae 0:06:25 serotype 14 CDTNotes: capsular antigen Shake well diphtheria [id number] prior to use protein conjugate (Same as: vaccine / Prevnar 13) Streptococcus pneumoniae serotype 18C capsular antigen d insulin glargine 10 unit, 0.1 Inactive mL, Route: 2018 [facility] SUB-Q, Drug City form: SOLN, Bedtime, Start date: 09/09/18 22:00:00 CDT, Duration: 30 day, Stop date: 10/08/18 22:00:00 CDTNotes: (Same as: Lantus) Do not hold insulin without contacting prescriber WASTE: F/P - Black; E - Municipal Trash Bin "single patient use only" Insulin Glargine 10 unit, On Hold 100 UNT/ML SUB-Q, 2018 [facility] Injectable Bedtime, 0 [facility] Solution Refill(s) Bacitracin 0.5 1 appl, Route: Inactive UNT/MG Ophthalmic RIGHT EYE, 2018 [facility] Ointment TID, Drug City form: OINT, Start date: 09/09/18 9:00:00 CDT, Duration: 30 day, Stop date: 10/08/18 17:00:00 CDT D5W 1/2NS 1,000 mL 1,000 mL, Inactive Rate: 75 2019 [facility] ml/hr, Infuse City over: 13.3 hr, Route: IV, Dosing Weight 94.3 kg, Total Volume: 1,000, Start date: 09/09/18 7:53:00 CDT, Duration: 30 day, Stop date: 10/09/18 7:52:00 CDT, 2.02, m2 Acyclovir 250 mg, 5 mL, No Longer Route: IVPB, [address] [id number], [facility] Dosing Weight 94.3, kg, Start date: 09/08/18 20:00:00 CDT, Duration: 30 day, Stop date: 10/08/18 8:00:00 CDTNotes: MEDICATION WASTE Product Size: 500 mg Product Wasted: _0__ mg 0.5 ML dulaglutide SUB-Q, every On Hold 3 MG/ML Prefilled Thursday, 0 2018 [facility] Syringe Refill(s) [facility] [Trulicity] Insulin Glargine 20 unit, On Hold 100 UNT/ML SUB-Q, 2019 [facility] Injectable Bedtime, # 3 [facility] Solution mL, 3 Refill(s) heparin 5,000 unit, 1 No Longer mL, Route: Active 2019 [facility] SUB-Q, Drug [facility] form: INJ, Q8H, Dosing Weight 94.3, kg, Consider for obese patients, Start date: 09/08/18 16:00:00 CDT, Stop date: 10/08/18 8:00:00 CDTNotes: porcine heparin Dextrose 50% 12.5 gm, 25 No Longer Syringe mL, Route: Active 2019 [facility] IVP, Drug [facility] Form: INJ, Dosing Weight 94.3, kg, PRN, PRN Blood Glucose Results, Start date: 09/08/18 9:49:00 CDT, Duration: 30 day, Stop date: 10/08/18 9:48:00 CDT Glucagon 1 mg, Route: No Longer IM, Drug form: [address] PDR/INJ, PRN, [facility] Dosing Weight 94.3, kg, PRN Blood Glucose Results, Start date: 09/08/18 9:49:00 CDT, Duration: 30 day, Stop date: 10/08/18 9:48:00 CDT Furosemide 20 MG 20 mg, 1 tab, No Longer [facility] Oral Tablet Route: PO, Active 2019 Medical Drug form: Center TAB, Every Other Day, Dosing Weight 111.6, kg, Start date: 08/20/18 9:00:00 CDT, Duration: 30 day, Stop date: 09/17/18 9:00:00 CDTNotes: (Same as: Lasix) May cause GI upset. Give with food or milk. Furosemide 20 MG 40 mg, Route: Inactive [facility] Oral Tablet PO, Drug form: 2019 Medical TAB, Daily, Center Dosing Weight 111.6, kg, Start date: 08/19/18 21:00:00 CDT, Duration: 30 day, Stop date: 09/18/18 9:00:00 CDT clopidogrel 75 mg 75 mg=1 tab, Active [facility] oral tablet PO, Daily, # 2019 Medical 90 tab, 3 Center Refill(s), Pharmacy: [facility] [id number] rosuvastatin 10 mg 20 mg=2 tab, Active [facility] oral tablet PO, Bedtime, # 2019 Medical 180 tab, 3 Center Refill(s) ramipril 5 mg oral 10 mg=2 cap, Active [facility] capsule PO, Q24H, # 2019 Medical 180 cap, 3 Center Refill(s) Insulin Glargine 20 unit, Active [facility] 100 UNT/ML SUB-Q, QPM, # 2019 Medical Injectable 15 mL, 3 Center Solution Refill(s) Furosemide 20 MG 20 mg=1 tab, Active [facility] Oral Tablet PO, Every 2019 Medical Other Day, # Center 15 tab, 0 Refill(s) amLODIPine 5 mg 5 mg=1 tab, Active [facility] oral tablet PO, Daily, # 2019 Medical 90 tab, 3 Center Refill(s) metoprolol 25 mg=1 tab, Active [facility] tartrate 25 mg PO, BID, # 60 2019 Medical oral tablet tab, 0 Center Refill(s) Furosemide 20 MG 40 mg, 1 tab, Inactive [facility] Oral Tablet Route: PO, 2019 Medical Drug [...] Inactive [facility] IVP, Drug 2018 Medical Form: [facility] Dosing Weight 111.6, kg, ONCALL, STAT, Start date: 08/18/18 13:07:00 CDT, Duration: 1 doses or times, Dose=2.2ml/kg, Max [id number] -- "To be infused by Radiology Staff ONLY" Imodium A-D 1 mg, 5 mL, No Longer [place] Route: PO, Active 2018 Medical Drug form: [place] LIQ, Q6H, Dosing Weight 111.6, kg, PRN Diarrhea, Start date: 08/18/18 12:08:00 CDT, Duration: 30 day, Stop date: 09/17/18 12:07:00 CDTNotes: Same as Imodium Ativan 1 mg, 0.5 mL, No Longer [place] Route: IV, Active 2018 Medical Drug form: [place] INJ, ONCE, Dosing Weight 111.6, kg, PRN Other -See Comment, Start date: 08/18/18 9:40:00 CDT, MRINotes: (Same as: Ativan) Ramipril 10 mg, 2 cap, No Longer [place] Route: PO, Active 2018 Medical Drug form: [place] CAP, Daily, Dosing Weight 111.6, kg, Start date: 08/18/18 9:00:00 CDT, Duration: 30 day, Stop date: 09/16/18 9:00:00 CDTNotes: (Same as:Altace) Amlodipine 10 mg, 1 tab, No Longer [place] Route: PO, Active 2018 Medical Drug form: [place] TAB, Daily, Dosing Weight 111.6, kg, Start [...] porcine heparin atorvastatin 40 mg, Route: Inactive [place] PO, Drug form: 2019 Medical TAB, Bedtime, Center Dosing Weight 111.6, kg, Start date: 08/17/18 21:00:00 CDT, Duration: 30 day, Stop date: 09/15/18 21:00:00 CDT Crestor 20 mg, 2 tab, No Longer [place] Route: PO, Active 2019 Medical Drug form: Center TAB, Bedtime, Dosing Weight 111.6, kg, Start date: 08/17/18 21:00:00 CDT, Duration: 30 day, Stop date: 09/15/18 21:00:00 CDTNotes: (Same As: Crestor) insulin glargine 20 unit, 0.2 No Longer [place] mL, Route: Active 2018 Medical SUB-Q, Drug Center form: MORAIMA, QPM, Start date: 08/17/18 17:00:00 CDT, Duration: 30 day, Stop date: 09/15/18 17:00:00 CDTNotes: Same as: Lantus) Do not hold insulin without contacting prescriber WASTE: F/P - Black; E - Municipal Trash Bin Ramipril 5 mg, 1 cap, No Longer [place] Route: PO, Active 2018 Medical Drug form: [place] CAP, Daily, Dosing Weight 111.6, kg, Start date: 08/17/18 15:30:00 CDT, Duration: 30 day, Stop date: 09/16/18 9:00:00 CDTNotes: (Same as:Altace) Amlodipine 5 mg, 1 tab, No Longer [place] Route: PO, Active 2018 Medical Drug form: [place] TAB, Daily, Dosing Weight 111.6, kg, Start date: 08/17/18 15:30:00 CDT, Duration: 30 day, Stop date: 09/16/18 9:00:00 CDTNotes: (Same as: Norvasc) loperamide 2 mg, 10 mL, Inactive [facility] Route: PO, 2019 Medical Drug form: [place] LIQ, ONCE, PRN Loose Stools, Start date: [...] Route: PO, Active 2018 Medical Drug form: [place] CAP, TID, Dosing Weight 111.6, kg, PRN [...] Refill(s) Insulin regular 3 unit, 0.03 Inactive [place] mL, Route: 2019 [facility] SUB-Q, Drug Center form: SOLN, TID-Before Meals, [...] 50% in 12.5 gm, 25 No Longer [place] Water (bolus) IV mL, Route: Active 2018 [...] Bisacodyl 10 mg, 1 supp, No Longer [facility] Route: UT, Active 2018 Medical Drug form: [place] SUPP, Daily, Dosing Weight 113.636, kg, PRN Constipation, Start date: 08/17/18 1:06:00 CDT, Duration: 30 day, Stop date: 09/16/18 1:05:00 CDTNotes: (Same As: Dulcolax, Bisco-Lax) Labetalol 20 mg, 4 mL, No Longer [facility] Route: IVP, Active 2019 Medical Drug form: [place] INJ, Q10Min, Dosing Weight 113.636, kg, PRN Hypertension, Start date: 08/16/18 23:38:00 CDT, Duration: 30 day, Stop date: 09/15/18 23:37:00 CDT iodixanol 60 mL, Route: Inactive [place] IVP, Drug 2019 Medical Form: [facility] Dosing Weight 113.636, kg, ONCALL, STAT, Start date: 08/16/18 20:39:00 CDT, Duration: 1 doses or times, Dose=2.2ml/kg, Max [id number] -- "To be infused by Radiology Staff ONLY" metoprolol 25 mg 25 mg, 1 tab, PO Active [facility] oral tablet PO, BID, 60 2010 Medical tab, Center Substitution Allowed, TAB metoprolol 25 mg, 1 tab, PO No Longer [facility] Route: PO, Active 2010 Medical Drug form: [place] TAB, BID, Start date: 03/25/11 9:00:00, Duration: 30 day, Stop date: 04/23/11 17:00:00 hydrALAZINE 10 mg, 0.5 mL, IV No Longer [facility] Route: IV, Active 2010 Medical Drug form: [place] INJ, Q4H, PRN Elevated BP, Start date: 03/24/11 18:14:00, Duration: 30 day, Stop date: 04/23/11 18:13:00, Systolic Blood pressure greater than 160 mmHg magnesium sulfate 2 gm, 50 mL, IVPB No Longer [facility] Route: IVPB, Active 2010 Medical Drug form: [place] INJ, ONCE, Total dose=2 gm, Start date: 03/24/11 17:59:00, Duration: 1 doses or times, Stop date: 03/24/11 17:59:00 NS 1,000 mL 1,000 mL, IV No Longer [facility] Rate: 100 Active 2010 Medical ml/hr, Infuse [place] over: 10 hr, Route: IV, Total Volume: 1,000, Start date: 03/24/11 17:56:00, Duration: 30 day, Stop date: 04/23/11 17:55:00 Novolin N 10 unit, 0.1 SUB-Q No Longer [facility] mL, Route: Active 2010 Medical SUB-Q, Drug Center form: INJ, BID, Start date: 03/24/11 9:00:00, Duration: 30 day, Stop date: 04/22/11 17:00:00 [place] Thyroid 120 mg, 2 tab, PO No Longer [facility] Route: PO, Active 2010 Medical Drug form: Center TAB, Before Breakfast, Start date: 03/24/11 8:30:00, Duration: 30 day, Stop date: 04/23/11 7:30:00 potassium chloride 40 mEq, 2 tab, PO No Longer [facility] Route: PO, Active 2010 Medical Drug form: Center ERTAB, ONCE, Start date: 03/23/11 19:12:00, Stop date: 03/23/11 19:12:00 senna 8.6 mg oral 8.6 mg, 1 tab, PO No Longer [facility] tablet Route: PO, Active 2010 Medical Drug Form: Center TAB, Daily, Start date: 03/23/11 9:00:00, Duration: 30 day, Stop date: 04/21/11 9:00:00 diphenhydrAMINE 25 mg, 1 cap, PO No Longer [facility] Route: PO, Active 2010 Medical Drug form: Center CAP, Q6H, PRN Itching, Start date: 03/23/11 7:37:00, Duration: 30 day, Stop date: 04/22/11 7:36:00 [place] Thyroid 120 mg, 0.5 PO No Longer [facility] tab, Route: Active 2010 Medical PO, Drug form: Center TAB, Before Breakfast, Start date: 03/23/11 7:30:00, Duration: 30 day, Stop date: 04/21/11 7:30:00 heparin 5,000 unit, 1 SUB-Q No Longer [facility] mL, Route: Active 2010 Medical SUB-Q, Drug Center form: INJ, Q12H, Start date: 03/22/11 21:00:00, Duration: 30 day, Stop date: 04/21/11 9:00:00 Crestor 20 mg, 2 tab, PO No Longer [facility] Route: PO, Active 2010 Medical Drug form: Center TAB, Bedtime, Start date: 03/22/11 21:00:00, Duration: 30 day, Stop date: 04/20/11 21:00:00 Keppra 500 mg oral 500 mg, 1 tab, PO No Longer [facility] tablet Route: PO, Active 2010 Medical Drug form: [place] TAB, Q12H, Start date: 03/22/11 21:00:00, Duration: 30 day, Stop date: 04/21/11 9:00:00 [place] 5/325 oral 1 tab, Route: PO No Longer [facility] tablet PO, Drug Form: Active 2010 Medical TAB, Q4H, PRN Center Pain, Start date: 03/22/11 17:33:00, Duration: 30 day, Stop date: 04/21/11 17:32:00 1/2NS + KCL 500 mL, Rate: IV No Longer [facility] 20mEq/L 1000ml 50 ml/hr, Active 2010 Medical (Premix) 500 mL Infuse over: [place] 10 hr, Route: IV, Total Volume: 500, Start date: 03/22/11 17:00:00, Duration: 30 day, Stop date: 04/21/11 16:59:00 magnesium oxide 400 mg, 1 tab, PO No Longer [facility] Route: PO, Active 2010 Medical Drug form: [place] TAB, BID, Start date: 03/22/11 17:00:00, Duration: 30 day, Stop date: 04/21/11 9:00:00 metoprolol 12.5 mg, 1 ea, PO No Longer [facility] Route: PO, Active 2010 Medical Drug form: [place] TAB, BID, Start date: 03/22/11 17:00:00, Duration: 30 day, Stop date: 04/21/11 9:00:00 docusate sodium 100 mg, 1 cap, PO No Longer [facility] 100 mg oral Route: PO, Active 2010 Medical capsule Drug form: [place] CAP, BID, Start date: 03/22/11 17:00:00, Duration: 30 day, Stop date: 04/21/11 9:00:00 1/2NS 1,000 mL 1,000 mL, IV No Longer [facility] Rate: 50 Active 2010 Medical ml/hr, Infuse Center over: 20 hr, Route: IV, Total Volume: 1,000, Start date: 03/22/11 16:57:00, Duration: 30 day, Stop date: 04/21/11 16:56:00 insulin aspart 3 unit, 0.03 SUB-Q No Longer [facility] mL, Route: Active 2010 Medical SUB-Q, Drug Center form: SOLN, TID-Before Meals, PRN Blood Glucose Results, Start date: 03/22/11 16:28:00, Duration: 30 day, Stop date: 04/21/11 16:27:00 Dextrose 50% 25 gm, 50 mL, IVP No Longer [facility] Syringe Route: IVP, Active 2010 Medical Drug Form: Center INJ, PRN, PRN Blood Glucose Results, Start date: 03/22/11 16:28:00, Duration: 30 day, Stop date: 04/21/11 15:27:00 glucagon 1 mg, Route: IM No Longer [facility] IM, Drug form: Active 2010 Medical PDR/INJ, PRN, [place] PRN Blood Glucose Results, Priority: STAT, Start date: 03/22/11 16:28:00, Duration: 30 day, Stop date: 04/21/11 15:27:00 calcium carbonate 500 mg, 1 tab, PO No Longer [facility] Route: PO, Active 2010 Medical Drug form: [place] CHEWTAB, TID, PRN as needed for indigestion, Start date: 03/22/11 16:19:00, Duration: 30 day, Stop date: 04/21/11 16:18:00 ondansetron 4 mg, 2 mL, IVP No Longer [facility] Route: IVP, Active 2010 Medical Drug form: [place] INJ, ONCE, Priority: STAT, Start date: 03/22/11 10:12:00, Stop date: 03/22/11 10:12:00 morphine Sulfate 4 mg, 1 mL, IVP No Longer [facility] Route: IVP, Active 2010 Medical Drug form: [place] INJ, ONCE, Priority: STAT, Start date: 03/22/11 10:11:00, Stop date: 03/22/11 10:11:00 magnesium oxide 400 mg, 1 tab, PO Active [facility] 400 mg oral tablet PO, BID, 4 2010 Medical tab, Center Substitution Allowed Benadryl 25 mg, 1 cap, PO No Longer [facility] [place] Route: PO, Active 2010 Medical Drug form: [place] CAP, Q4H, PRN Itching, Start date: 03/15/11 6:21:00, Duration: 30 day, Stop date: 04/14/11 6:20:00 trazodone 50 mg 50 mg, 1 tab, PO No Longer [place] [facility] oral tablet Route: PO, Active 2010 Medical Drug form: [place] TAB, Bedtime, Start date: 03/14/11 21:00:00, Duration: 30 day, Stop date: 04/12/11 21:00:00 NS 1,000 mL 1,000 mL, IV No Longer [facility] [place] Rate: 75 Active 2010 Medical ml/hr, Infuse Center over: 13.3 hr, Route: IV, Total Volume: 1,000, Start date: 03/14/11 17:02:00, Duration: 30 day, Stop date: 04/13/11 17:01:00 senna 8.6 mg oral 8.6 mg, 1 tab, PO No Longer [place] [facility] tablet Route: PO, Active 2010 Medical Drug Form: Center TAB, Daily, Start date: 03/14/11 9:00:00, Duration: 30 day, Stop date: 04/12/11 9:00:00 metoprolol 12.5 mg, 1 ea, PO No Longer [place] [facility] Route: PO, Active 2010 Medical Drug form: [place] TAB, BID, Start date: 03/14/11 9:00:00, Duration: 30 day, Stop date: 04/12/11 17:00:00 Crestor 20 mg, 2 tab, PO No Longer [place] [facility] Route: PO, Active 2010 Medical Drug form: Center TAB, Daily, Start date: 03/14/11 9:00:00, Duration: 30 day, Stop date: 04/12/11 9:00:00 Keppra 500 mg oral 500 mg, 1 tab, PO No Longer [facility] tablet Route: PO, Active 2010 Medical Drug form: [place] TAB, Q12H, Start date: 03/14/11 9:00:00, Duration: 30 day, Stop date: 04/12/11 21:00:00 Novolin N 10 unit, 0.1 SUB-Q No Longer [facility] mL, Route: Active 2010 Medical SUB-Q, Drug Center form: INJ, BID, Start date: 03/14/11 9:00:00, Duration: 30 day, Stop date: 04/12/11 17:00:00 docusate sodium 100 mg, 1 cap, PO No Longer [facility] 100 mg oral Route: PO, Active 2010 Medical capsule Drug form: [place] CAP, BID, Start date: 03/14/11 9:00:00, Duration: 30 day, Stop date: 04/12/11 17:00:00 calcium carbonate 500 mg, 1 tab, PO No Longer [facility] Route: PO, Active 2010 Medical Drug form: [place] CHEWTAB, TID, Start date: 03/14/11 9:00:00, Duration: 30 day, Stop date: 04/12/11 17:00:00 heparin 5,000 unit, 1 SUB-Q No Longer [facility] mL, Route: Active 2010 Medical SUB-Q, Drug Center form: INJ, Q8H, Start date: 03/14/11 8:00:00, Duration: 30 day, Stop date: 04/13/11 0:00:00 ciprofloxacin 750 mg, 3 tab, PO No Longer [facility] Route: PO, Active 2010 Medical Drug form: [place] TAB, [id number], Start date: 03/14/11 7:00:00, Duration: 30 day, Stop date: 04/12/11 19:00:00 cefepime 2 gm, Route: IV No Longer [facility] IV, Drug form: Active 2010 Medical INJ, [id number], Center Start date: 03/14/11 7:00:00, Duration: 30 day, Stop date: 04/12/11 23:00:00 [place] Thyroid 120 mg, 2 tab, PO No Longer [facility] Route: PO, Active 2010 Medical Drug form: [place] TAB, [id number], Start date: 03/14/11 6:45:00, Duration: 30 day, Stop date: 04/13/11 6:30:00 glucagon 1 mg, Route: IM No Longer [facility] IM, Drug form: Active 2010 Medical PDR/INJ, PRN, Center PRN Blood Glucose Results, Priority: STAT, Start date: 03/14/11 6:06:00, Duration: 30 day, Stop date: 04/13/11 5:05:00 Dextrose 50% 25 gm, 50 mL, IVP No Longer [facility] Syringe Route: IVP, Active 2010 Medical Drug Form: [place] INJ, PRN, PRN Blood Glucose Results, Start date: 03/14/11 6:06:00, Duration: 30 day, Stop date: 04/13/11 5:05:00 insulin aspart 4 unit, 0.04 SUB-Q No Longer [facility] mL, Route: Active 2010 Medical SUB-Q, Drug Center form: SOLN, TID-Before Meals, PRN Blood Glucose Results, Start date: 03/14/11 6:06:00, Duration: 30 day, Stop date: 04/13/11 6:05:00 [place] 5/325 oral 1 tab, Route: PO No Longer [facility] tablet PO, Drug Form: Active 2010 Medical TAB, Q4H, PRN Center as needed for pain, Start date: 03/14/11 6:02:00, Duration: 30 day, Stop date: 04/13/11 6:01:00 magnesium sulfate 2 gm, 50 mL, IVPB No Longer [facility] Route: IVPB, Active 2010 Medical Drug form: [place] INJ, ONCE, Total dose=2 gm, Start date: [...] 2 gm, Route: IVPB No Longer [facility] IVPB, Drug Active 2010 Medical form: INJ, Center ONCE, Start date: 03/13/11 23:52:00, Stop date: 03/13/11 23:52:00 Cipro 750 mg, 3 tab, PO No Longer [facility] Route: PO, Active 2010 Medical Drug form: Center TAB, ONCE, Start date: 03/13/11 23:51:00, Stop date: 03/13/11 23:51:00 Sodium Chloride 1,000 mL, IV No Longer [facility] [place] 0.9% (Bolus) IV Rate: 1,000 Active 2010 Medical 1,000 mL ml/hr, Infuse Center over: 1 hr, Route: IV, Total Volume: 1,000, Bolus Dose, Priority: STAT, Start date: 03/13/11 23:20:00, Duration: 1 doses or times, Stop date: 03/14/11 0:19:00 morphine Sulfate 4 mg, 1 mL, IVP No Longer [facility] [place] Route: IVP, Active 2010 Medical Drug form: Center INJ, ONCE, Priority: STAT, Start date: 03/13/11 22:47:00, Stop date: 03/13/11 22:47:00 Lasix Substitution No Longer [facility] Allowed Active 2010 Medical [place] metFORmin Substitution No Longer [facility] Allowed Active 2010 Medical Center metoprolol 12.5 mg, 1 ea, PO No Longer [facility] [place] Route: PO, Active 2010 Medical Drug form: Center TAB, BID, Start date: 03/06/11 20:00:00, Duration: 30 day, Stop date: 04/05/11 8:00:00 metoprolol 25 mg 12.5 mg, 0.5 PO Active [facility] [place] oral tablet ea, PO, BID, 2010 Medical 60 tab, Center Substitution Allowed, TAB trazodone 50 mg 50 mg, 1 tab, PO Active [facility] 03/06[facility] [place] oral tablet PO, Bedtime, 2010 Medical 40 tab, Center Substitution Allowed, TAB [place] 5/325 oral 1 tab, PO, PO Active [facility] 03/06[facility] [place] tablet Q4H, PRN, 40 2010 Medical tab, Pain, Center Substitution Allowed, Maintenance, TAB Novolin N 100 10 unit, SUB-Q Active [facility] units/mL SUB-Q, BID, 10 2010 Medical subcutaneous ml, Center injection Substitution Allowed, SUSP [place] Thyroid 60 120 mg, 2 tab, PO Active [facility] 03/06[facility] [place] mg oral tablet PO, Before 2010 Medical Breakfast, 60 Center tab, Substitution Allowed, TAB Keppra 500 mg oral 500 mg, 1 tab, PO Active [facility] 03/06[facility] [place] tablet PO, Q12H, 60 2010 Medical tab, Center Substitution Allowed, TAB Crestor 20 mg oral 20 mg, 1 tab, PO Active [facility] 03/06[facility] [place] tablet PO, Daily, 30 2010 Medical tab, Center Substitution Allowed, TAB senna 8.6 mg oral 8.6 mg, 1 tab, PO Active [facility] 03/06[facility] [employer] tablet PO, Daily, 30 2010 Medical tab, Center Substitution Allowed, Maintenance, TAB docusate sodium 100 mg, 1 cap, PO Active [facility] [place] 100 mg oral PO, BID, 30 2010 Medical capsule cap, [place] Substitution Allowed, CAP ciprofloxacin 250 750 mg, 3 tab, PO Active R[facility] 03/06[facility] [place] mg oral tablet PO, Q12H, 40 2010 Medical doses or Center times, Substitution Allowed, TAB Maxipime 2 g 2 gm, IV, Q8H, IV Active Rizvi 03/06[facility] injection 60 doses or 2010 Medical times, Center Substitution Allowed calcium carbonate 500 mg, 1 tab, PO Active Rizvi 03/06[facility] [place] 500 mg oral PO, TID, PRN, 2010 Medical tablet, chewable 30 tab, as Center needed for indigestion, Substitution Allowed, CHEWTAB Lasix 10 mg, 0.5 PO No Longer [facility] tab, Route: Active 2010 Medical PO, Drug form: Center TAB, Daily, Start date: 03/06/11 8:00:00, Duration: 30 day, Stop date: 04/04/11 8:00:00 Norvasc 5 mg, Route: PO No Longer [place] [place] PO, Daily, Active 2010 Medical Start date: Center 03/02/11 8:00:00, Duration: 30 day, Stop date: 03/31/11 8:00:00 trazodone 50 mg 50 mg, 1 tab, PO No Longer [facility] oral tablet Route: PO, Active 2010 Medical Drug form: Center TAB, Bedtime, Start date: 02/27/11 21:00:00, Duration: 30 day, Stop date: 03/28/11 21:00:00 calcium carbonate 500 mg, 1 tab, PO No Longer [facility] Route: PO, Active 2010 Medical Drug form: Center TAB, TID, Start date: 02/27/11 8:00:00, Duration: 7 day, Stop date: 03/05/11 17:00:00 senna 8.6 mg, 1 tab, PO No Longer [facility] Route: PO, Active 2010 Medical Drug Form: Center TAB, Daily, Start date: 02/27/11 8:00:00, Duration: 30 day, Stop date: 03/28/11 8:00:00 Lasix 40 mg oral 20 mg, 0.5 PO No Longer R[facility] tablet tab, Route: Active 2010 Medical PO, Drug form: Center TAB, Daily, Start date: 02/27/11 8:00:00, Stop date: 03/28/11 8:00:00 [place] Thyroid 120 mg, 2 tab, PO No Longer [facility] Route: PO, Active 2010 Medical Drug form: Center TAB, Before Breakfast, Start date: 02/27/11 6:30:00, Duration: 30 day, Stop date: 03/28/11 6:30:00 Insulin regular 5 unit, 0.05 SUB-Q No Longer [facility] mL, Route: Active 2010 Medical SUB-Q, Drug Center form: SOLN, TID-Before Meals, Start date: 02/27/11 6:30:00, Stop date: 03/28/11 16:30:00 heparin 5000 5,000 unit, 1 SUB-Q No Longer [facility] units/mL mL, Route: Active 2010 Medical injectable SUB-Q, Drug Center solution form: INJ, Q8H, Start date: 02/27/11 0:00:00, Duration: 30 day, Stop date: 03/28/11 16:00:00 hydrALAZINE 25 mg 25 mg, 1 tab, PO No Longer [facility] oral tablet Route: PO, Active 2010 Medical Drug form: Center TAB, Q8H, Start date: 02/27/11 0:00:00, Duration: 30 day, Stop date: 03/28/11 16:00:00 ciprofloxacin 750 mg, 3 tab, PO No Longer [facility] Route: PO, Active 2010 Medical Drug form: Center TAB, Q12H, Priority: Routine, Start date: 02/26/11 23:00:00, Duration: 30 day, Stop date: 03/28/11 11:00:00 Crestor 20 mg, 2 tab, PO No Longer [facility] Route: PO, Active 2010 Medical Drug form: Center TAB, Daily, Start date: 02/26/11 21:00:00, Duration: 30 day, Stop date: 03/27/11 21:00:00 levetiracetam 500 mg, 1 tab, PO No Longer [facility] Route: PO, Active 2010 Medical Drug form: Center TAB, Q12H, Start date: 02/26/11 21:00:00, Duration: 30 day, Stop date: 03/28/11 9:00:00 magnesium oxide 400 mg, 1 tab, PO No Longer [facility] Route: PO, Active 2010 Medical Drug form: Center TAB, BID, Start date: 02/26/11 20:00:00, Duration: 5 day, Stop date: 03/03/11 8:00:00 insulin 10 unit, 0.1 SUB-Q No Longer [facility] isophane-NPH mL, Route: Active 2010 Medical SUB-Q, Drug Center form: INJ, BID, Start date: 02/26/11 20:00:00, Duration: 30 day, Stop date: 03/28/11 8:00:00 docusate sodium 100 mg, 1 cap, PO No Longer [facility] [place] 100 mg oral Route: PO, Active 2010 Medical capsule Drug form: [place] CAP, BID, Start date: 02/26/11 20:00:00, Duration: 30 day, Stop date: 03/28/11 8:00:00 Prinivil 20 mg, 1 tab, PO No Longer [facility] Route: PO, Active 2010 Medical Drug form: [place] TAB, BID, Start date: 02/26/11 20:00:00, Stop date: 03/28/11 8:00:00 cefepime 2 gm, Route: IVPB No Longer [facility] IVPB, Drug Active 2010 Medical form: INJ, [place] ABXQ8H, Start date: 02/26/11 18:00:00, Duration: 30 day, Stop date: 03/28/11 10:00:00 ondansetron 4 mg, 2 mL, IVP No Longer [facility] Route: IVP, Active 2010 Medical Drug form: [place] INJ, ONCE, PRN Nausea & Vomiting, Start date: 02/26/11 17:39:00 Saline Flush 0.9% 5 ml, Route: IVP No Longer [facility] IVP, Drug Active 2010 [facility] Line Flush, Start date: 02/26/11 17:39:00, Duration: 30 day, Stop date: 03/28/11 17:38:00 calcium carbonate 500 mg, 1 tab, CHEW No Longer [facility] Route: CHEW, Active 2010 Medical Drug form: [place] CHEWTAB, TID, PRN Indigestion, Start date: 02/26/11 17:39:00, Duration: 30 day, Stop date: 03/28/11 17:38:00 [place] 5/325 oral 1 tab, Route: PO No Longer [facility] tablet PO, Drug Form: Active 2010 Medical TAB, Q4H, PRN Center Pain, Start date: 02/26/11 17:39:00, Duration: 30 day, Stop date: 03/28/11 17:38:00 acetaminophen 650 mg, 20.3 PO No Longer [facility] mL, Route: PO, Active 2010 Medical Drug form: [place] LIQ, Q4H, PRN Fever, Start date: 02/26/11 17:39:00, Duration: 30 day, Stop date: 03/28/11 17:38:00 [place] 7.5/325 oral 1 tab, Route: PO No [...] Duration: 30 day, Stop date: 03/28/11 17:38:00 [place] Thyroid 60 120 mg, 2 tab, PO [...] sodium 100 mg, 1 cap, PO Active [facility] [place] 100 mg oral PO, BID, 2010 Medical capsule cap, Center Substitution Allowed, CAP ciprofloxacin 250 750 mg, 3 tab, PO Active [facility] [place] mg oral tablet PO, Q12H, 2010 Medical doses or Center times, Substitution Allowed, TAB Maxipime 2 g 2 gm, IV, Q8H, IV Active [facility] injection 1 doses or 2010 Medical times, Center Substitution Allowed calcium carbonate 500 mg, 1 tab, PO Active [facility] [place] 500 mg oral PO, TID, 2010 Medical tablet, chewable tab, Center Substitution Allowed, CHEWTAB [place] Enema 133 ml, Route: [place] No Longer [facility] UT, Drug Form: Active 2010 Medical JEANNIE, ONCE, Center Start date: 02/24/11 14:38:00, Stop date: 02/24/11 14:38:00 bisacodyl 10 mg, 1 supp, UT No Longer [facility] Route: UT, Active 2010 Medical Drug form: [place] SUPP, ONCE, Start date: 02/24/11 14:38:00, Stop date: 02/24/11 14:38:00 magnesium citrate 300 ml, Route: PO No Longer Aicha [facility] PO, Drug Form: Active 2010 Medical LIQ, ONCE, Center Start date: 02/24/11 13:03:00, Stop date: 02/24/11 13:03:00 calcium carbonate 500 mg, 1 tab, PO No Longer [facility] Route: PO, Active 2010 Medical Drug form: Center TAB, TID, Start date: 02/24/11 13:00:00, Duration: 7 day, Stop date: 03/03/11 9:00:00 lisinopril 10 mg, 1 tab, PO No Longer [facility] Route: PO, Active 2010 Medical Drug form: [place] TAB, ONCE, Priority: NOW, Start date: 02/24/11 11:02:00, Stop date: 02/24/11 11:02:00 lisinopril 10 mg, Route: PO No Longer [facility] [place] PO, ONCE, Active 2010 Medical Start date: Center 02/24/11 11:01:00, Stop date: 02/24/11 11:01:00 Insulin regular 3 unit, 0.03 SUB-Q No Longer Aaron [place] mL, Route: Active 2010 Medical SUB-Q, Drug Center form: SOLN, TID-Before Meals, Start date: 02/23/11 16:30:00, Duration: 30 day, Stop date: 03/25/11 11:30:00 ciprofloxacin 750 mg, 3 tab, PO No Longer [facility] [place] Route: PO, Active 2010 Medical Drug form: [place] TAB, Q12H, Priority: Routine, Start date: 02/23/11 13:00:00, Duration: 30 day, Stop date: 03/25/11 11:00:00 insulin 10 unit, 0.1 SUB-Q No Longer Aaron [place] isophane-NPH mL, Route: Active 2010 Medical SUB-Q, Drug Center form: INJ, BID, Start date: 02/21/11 17:00:00, Stop date: 03/23/11 9:00:00 magnesium oxide 400 mg, 1 tab, PO No Longer [facility] [place] Route: PO, Active 2010 Medical Drug form: [place] TAB, BID, Start date: 02/21/11 17:00:00, Duration: 5 day, Stop date: 02/26/11 9:00:00 calcium carbonate 500 mg, 1 tab, CHEW No Longer [facility] [place] Route: CHEW, Active 2010 Medical Drug form: [place] CHEWTAB, TID, PRN Indigestion, Start date: 02/21/11 14:26:00, Duration: 30 day, Stop date: 03/23/11 14:25:00 cefepime 2 gm, Route: IVPB No Longer [facility] [place] IVPB, Drug Active 2010 Medical form: INJ, Center [id number], Start date: 02/20/11 18:00:00, Stop date: 03/22/11 10:00:00 Lasix 40 mg oral 40 mg, 1 tab, PO No Longer [facility] [place] tablet Route: PO, Active 2010 Medical Drug form: Center TAB, Daily, Start date: 02/20/11 17:00:00, Stop date: 03/22/11 9:00:00 heparin 5000 5,000 unit, 1 SUB-Q No Longer Marie [facility] units/mL mL, Route: Active 2010 Medical injectable SUB-Q, Drug Center solution form: INJ, Q8H, Start date: 02/20/11 16:00:00, Duration: 30 day, Stop date: 03/22/11 8:00:00 [place] 7.5/325 oral 1 tab, Route: PO No Longer Marie [facility] tablet PO, Drug Form: Active 2010 Medical TAB, Q4H, PRN Center Pain, Start date: 02/20/11 11:07:00, Duration: 30 day, Stop date: 03/22/11 11:06:00 Crestor 20 mg, 2 tab, PO No Longer [facility] Route: PO, Active 2010 Medical Drug form: Center TAB, Daily, Start date: 02/20/11 9:00:00, Duration: 30 day, Stop date: 03/21/11 9:00:00 senna 8.6 mg, 1 tab, PO No Longer [facility] Route: PO, Active 2010 Medical Drug Form: Center TAB, Daily, Start date: 02/20/11 9:00:00, Duration: 30 day, Stop date: 03/21/11 9:00:00 [place] Thyroid 120 mg, 2 tab, PO No Longer [facility] Route: PO, Active 2010 Medical Drug form: Center TAB, Before Breakfast, Start date: 02/20/11 7:30:00, Duration: 30 day, Stop date: 03/21/11 7:30:00 vancomycin 1 gm, Route: IVPB No Longer [facility] IVPB, Drug Active 2010 Medical form: INJ, Center [id number], Priority: NOW, Start date: 02/20/11 6:44:00, Duration: 30 day, Stop date: 03/21/11 22:44:00 magnesium sulfate 2 gm, 50 mL, IVPB No Longer Day [place] Route: IVPB, Active 2010 Medical Drug form: [...] gm, 100 mL, IVPB No Longer [facility] [place] Route: IVPB, Active 2010 Medical Drug form: Center INJ, ONCE, Start date: 02/20/11 4:00:00, Stop date: 02/20/11 4:00:00 labetalol 5 mg, 1 mL, IV No Longer Kasi [place] Route: IV, Active 2010 Medical Drug form: [place] INJ, Q10Min, PRN Hypertension, Start date: 02/20/11 1:56:00, Duration: 30 day, Stop date: 03/22/11 1:55:00 NS 500 mL 500 mL, Rate: IV No Longer Kasi [facility] 1,000 ml/hr, Active 2010 Medical Infuse over: [place] 0.5 hr, Route: IV, Total Volume: 500, Start date: 02/19/11 22:07:00, Duration: 1 doses or times, Stop date: 02/19/11 22:36:00, Bolus DoseBolus Dose calcium chloride 1,000 mg, 10 IV No Longer [facility]ie mL, Route: IV, Active 2010 Medical Drug form: Center INJ, ONCE, Start date: 02/19/11 21:18:00, Stop date: 02/19/11 21:18:00 Tylenol 650 mg, 2 tab, PO No Longer Sal[facility] [place] Route: PO, Active 2010 Medical Drug form: Center TAB, Q4H, PRN Fever, Start date: 02/19/11 21:13:00, Duration: 30 day, Stop date: 03/21/11 21:12:00 levetiracetam 500 mg, 1 tab, PO No Longer [facility] [place] Route: PO, Active 2010 Medical Drug form: Center TAB, Q12H, Start date: 02/19/11 21:00:00, Duration: 30 day, Stop date: 03/21/11 9:00:00 acetaminophen 650 mg, 20.3 PO No Longer Kasi [facility] mL, Route: PO, Active 2010 Medical Drug form: [place] LIQ, Q4H, PRN Fever, Start date: 02/19/11 20:04:00, Duration: 30 day, Stop date: 03/21/11 20:03:00 Prinivil 10 mg, 1 tab, PO No Longer [facility] Route: PO, Active 2010 Medical Drug form: Center TAB, BID, Start date: 02/19/11 17:00:00, Duration: 30 day, Stop date: 03/20/11 17:00:00 hydrALAZINE 25 mg 25 mg, 1 tab, PO No Longer [facility] oral tablet Route: PO, Active 2010 Medical Drug form: [place] TAB, Q8H, Start date: 02/19/11 17:00:00, Stop date: 03/21/11 8:00:00 docusate sodium 100 mg, 1 cap, PO No Longer [facility] 100 mg oral Route: PO, Active 2010 Medical capsule Drug form: [place] CAP, BID, Start date: 02/19/11 17:00:00, Duration: 30 day, Stop date: 03/21/11 9:00:00 [place] 5/325 oral 1 tab, Route: PO No Longer [facility] tablet PO, Drug Form: Active 2010 Medical TAB, Q4H, PRN Center Pain, Start date: 02/19/11 16:14:00, Duration: 30 day, Stop date: 03/21/11 16:13:00 ciprofloxacin 400 mg, 200 IVPB No Longer Sahu [facility] mL, Route: Active 2010 Medical IVPB, Drug Center form: INJ, [id number], Priority: NOW, Start date: 02/19/11 16:10:00, Duration: [...] Chloride 1,000 mL, IV No Longer [facility] [place] 0.9% IV 1,000 mL Rate: 75 Active 2010 Medical ml/hr, Infuse Center over: 13.3 hr, Route: IV, Total Volume: 1,000, Start date: 02/19/11 15:56:00, Stop date: 03/21/11 15:55:00 insulin regular 7 unit, 0.07 SUB-Q No Longer [facility] [place] human recombinant mL, Route: Active 2010 [facility] 100 units/mL SUB-Q, Drug Center injectable form: SOLN, solution PRN, PRN Abnormal Lab Result, Start date: 02/19/11 15:51:00, Duration: 30 day, Stop date: 03/21/11 15:50:00 Dextrose 50% 6.25 gm, 12.5 IVP No Longer [facility] Syringe mL, Route: Active 2010 [facility] IVP, Drug Center Form: INJ, PRN, PRN Abnormal Lab Result, Start date: 02/19/11 15:51:00, Duration: 30 day, Stop date: 03/21/11 15:50:00 Saline Flush 0.9% 5 ml, Route: IVP No Longer [facility] IVP, Drug Active 2010 Medical Form: INJ, Center PRN, PRN Line Flush, Start date: 02/19/11 15:51:00, Duration: 30 day, Stop date: 03/21/11 15:50:00 morphine Sulfate 2 mg, 1 mL, IVP No Longer [facility] Route: IVP, Active 2010 Medical Drug form: Center INJ, Q1H, PRN Pain Score 7-10, Start date: 02/19/11 15:51:00, Duration: 30 day, Stop date: 03/21/11 15:50:00 flumazenil 0.2 mg, 2 mL, IVP No Longer Louann [facility] Route: IVP, Active 2010 Medical Drug form: Center INJ, PRN, PRN Other -See Comment, Initial dose, Start date: 02/19/11 14:18:00, Duration: 30 day, Stop date: 03/21/11 14:17:00 naloxone 0.04 mg, 0.1 IVP No Longer Herman [facility] mL, Route: Active 2010 Medical IVP, Drug Center form: INJ, Q2MIN, PRN Narcotic Reversal, Start date: 02/19/11 14:18:00, Duration: 8 doses or times, Stop date: 02/20/11 14:18:00 hydromorphone 0.3 mg, 0.15 IVP No Longer Sal[facility] mL, Route: Active 2010 Medical IVP, Drug Center form: INJ, Q5Min, PRN Pain, Start date: 02/19/11 14:18:00, Duration: 5 doses or times, Stop date: Limited # of times ondansetron 4 mg, 2 mL, IVP No Longer Louann [facility] Route: IVP, Active 2010 Medical Drug form: Center INJ, ONCE, PRN Nausea & Vomiting, Start date: 02/19/11 14:18:00 labetalol 5 mg, 1 mL, IVP No Longer Herman [facility] Route: IVP, Active 2010 Medical Drug form: Center INJ, Q5Min, PRN Elevated BP, Start date: 02/19/11 14:18:00, Duration: 5 doses or times, Stop date: 02/20/11 0:00:00 vancomycin 1 gm, Route: IVPB No Longer Rizvi [facility] IVPB, Drug Active 2010 Medical form: INJ, Center [id number], Start date: 02/19/11 14:00:00, Duration: 30 day, Stop date: 03/21/11 2:00:00 ondansetron 2 4 mg, 2 mL, IVP Active [facility] mg/mL injectable IVP, Q8H, PRN, 2010 Medical [...] Pen 100 10 unit, SUB-Q Active ider [facility] units/mL SUB-Q, BID, 3 2010 Medical subcutaneous ml, Center injection Substitution Allowed, SUSP Humulin N Pen 100 10 unit, SUB-Q Active [facility] units/mL SUB-Q, BID, 3 2010 Medical subcutaneous ml, Center injection Substitution Allowed, SUSP hydrALAZINE 25 mg 25 mg, 1 tab, PO Active ider [facility] oral tablet PO, BID, 60 2010 Medical tab, Center Substitution Allowed, TAB bisacodyl 10 mg 10 mg, 1 supp, [place] Active [facility] rectal suppository [place], Bedtime, 2010 Medical PRN, 30 supp, Center Constipation, Substitution Allowed, SUPP [place] 5/325 oral 1 tab, PO, PO Active ider [facility] tablet Q4H, PRN, 30 2010 Medical tab, as needed Center for pain, Substitution Allowed, Maintenance, TAB [place] Thyroid 120 120 mg, 1 tab, PO Active [facility] [place] mg oral tablet PO, Daily, 30 2010 Medical tab, Center Substitution Allowed, TAB Crestor 20 mg oral 20 mg, 1 tab, PO Active [facility] [place] tablet PO, Daily, 30 2010 Medical tab, Center Substitution Allowed, TAB metFORmin 500 mg 500 mg, 1 tab, PO Active [facility] oral tablet PO, Q8H, 90 2010 Medical tab, Center Substitution Allowed, TAB normal saline 0.9% 1,000 mL, IV No Longer Christianson [facility] IV 1,000 mL Rate: 100 Active 2010 Medical ml/hr, Infuse Center over: 10 hr, Route: IV, Total Volume: 1,000, Start date: 02/18/11 11:29:00, Duration: 30 day, Stop date: 03/20/11 11:28:00 potassium 25 mEq, No Longer [place] bicarbonate 25 mEq Substitution Active 2010 Medical oral tablet, Allowed Center effervescent potassium chloride 40 mEq, 30 mL, PO No Longer Alikhan [facility] Route: PO, Active 2010 Medical Drug form: [place] LIQ, Daily, Start date: 02/12/11 11:00:00, Duration: 30 day, Stop date: 03/14/11 8:00:00 Kayexalate 15 gm, 60 mL, PO No Longer Dean [facility] Route: PO, Active 2010 Medical Drug form: [place] SUSP, ONCE, Start date: 02/11/11 21:17:00, Stop date: 02/11/11 21:17:00 Kayexalate 30 gm, 120 mL, PO No Longer [facility] Route: PO, Active 2010 Medical Drug form: [place] SUSP, ONCE, Start date: 02/11/11 17:22:00, Stop date: 02/11/11 17:22:00 NS (Bolus) IV 1,000 mL, IV No Longer Joel [place] 1,000 mL Rate: 1,000 Active 2010 Medical ml/hr, Infuse [place] over: 1 hr, Route: IV, Total Volume: 1,000, Priority: STAT, Start date: 02/11/11 8:37:00, Duration: 1 doses or times, Stop date: 02/11/11 9:36:00, Bolus DoseBolus Dose dexamethasone 1 mg, 1 tab, PO No Longer [facility] Route: PO, Active 2010 Medical Drug form: [place] TAB, Daily, Start date: 02/11/11 8:00:00, Duration: 2 day, Stop date: 02/12/11 8:00:00 Fleet Enema 133 ml, Route: [place] No Longer [facility] [place], Drug Form: Active 2010 Medical JEANNIE, ONCE, Center Start date: 02/10/11 14:15:00, Stop date: 02/10/11 14:15:00 bisacodyl 10 mg, 1 supp, [place] No Longer [facility] Route: UT, Active 2010 Medical Drug form: [place] SUPP, ONCE, Start date: 02/10/11 14:15:00, Stop date: 02/10/11 14:15:00 dexamethasone 1 mg, 1 tab, PO No Longer Zeider [facility] Route: PO, Active 2010 Medical Drug form: [place] TAB, BID, Start date: 02/09/11 8:00:00, Duration: 2 day, Stop date: 02/10/11 20:00:00 Xylocaine Jelly 2% 1 appl, Route: TOP No Longer [place]am [place] topical gel with TOP, Q6H, Drug Active 2010 Medical applicator form: GEL PRN [place] Pain, Start date: 02/08/11 16:04:00, Duration: 30 day, Stop date: 03/10/11 16:03:00 dexamethasone 1 mg, 1 tab, PO No Longer [place] [facility] Route: PO, Active 2010 Medical Drug form: [place] TAB, TID, Start date: 02/07/11 8:00:00, Duration: 2 day, Stop date: 02/08/11 17:00:00 Prinivil 10 mg, 1 tab, PO No Longer Zeider [facility] Route: PO, Active 2010 Medical Drug form: [place] TAB, QPM, Start date: 02/06/11 17:00:00, Duration: 30 day, Stop date: 03/07/11 17:00:00 dexamethasone 2 mg, 1 tab, PO No Longer [place] [facility] Route: PO, Active 2010 Medical Drug form: [place] TAB, TID, Start date: 02/05/11 8:00:00, Duration: 2 day, Stop date: 02/06/11 17:00:00 lisinopril 10 mg, 1 tab, PO No Longer Zeider [facility] Route: PO, Active 2010 Medical Drug form: [place] TAB, QPM, Start date: 02/04/11 8:00:00, Duration: 30 day, Stop date: 03/05/11 17:00:00 insulin 8 unit, 0.08 SUB-Q No Longer Alikhan [facility] isophane-NPH mL, Route: Active 2010 Medical SUB-Q, Drug Center form: INJ, Before Breakfast, Start date: 02/04/11 6:30:00, Stop date: 03/05/11 6:30:00 insulin 8 unit, 0.08 SUB-Q No Longer Alikhan [facility] isophane-NPH mL, Route: Active 2010 Medical SUB-Q, Drug Center form: INJ, Bedtime, Start date: 02/03/11 21:00:00, Stop date: 03/04/11 21:00:00 potassium chloride 40 mEq, 2 tab, PO No Longer [place] 20 mEq oral Route: PO, Active 2010 Medical tablet, extended Drug form: Center release ERTAB, ONCE, Start date: 02/03/11 14:29:00, Stop date: 02/03/11 14:29:00 potassium chloride 40 mEq, 2 tab, PO No Longer Zeider [facility] 20 mEq oral Route: PO, Active 2010 Medical tablet, extended Drug form: Center release ERTAB, Daily, Start date: 02/03/11 9:00:00, Stop date: 03/05/11 8:00:00 dexamethasone 3 mg, 1.5 tab, PO No Longer [place] [facility] Route: PO, Active 2010 Medical Drug form: Center TAB, TID, Start date: 02/03/11 8:00:00, Duration: 2 day, Stop date: 02/04/11 17:00:00 insulin 15 unit, 0.15 SUB-Q No Longer Ash [facility] isophane-NPH mL, Route: Active 2010 Medical SUB-Q, Drug Center form: INJ, Q24H, Start date: 02/03/11 0:00:00, Duration: 30 day, Stop date: 03/04/11 0:00:00 Keppra 500 mg, 1 tab, PO No Longer [place] [facility] Route: PO, Active 2010 Medical Drug form: Center TAB, Q12H, Start date: 02/02/11 21:00:00, Duration: 30 day, Stop date: 03/04/11 9:00:00 hydrALAZINE 25 mg 25 mg, 1 tab, PO No Longer Ash [facility] oral tablet Route: PO, Active 2010 Medical Drug form: Center TAB, BID, Start date: 02/01/11 17:00:00, Stop date: 03/03/11 8:00:00 heparin 5,000 unit, 1 SUB-Q No Longer Rizvi [facility] mL, Route: Active 2010 Medical SUB-Q, Drug Center form: INJ, Q8H, Start date: 02/01/11 16:00:00, Duration: 30 day, Stop date: 03/03/11 8:00:00 Kayexalate 15 gm, 60 mL, PO No Longer Ash [facility] Route: PO, Active 2010 Medical Drug form: [place] SUSP, ONCE, Start date: 02/01/11 13:19:00, Stop date: 02/01/11 13:19:00 potassium chloride 20 mEq, 1 tab, PO No Longer [place] [facility] 20 mEq oral Route: PO, Active 2010 Medical tablet, extended Drug form: Center release ERTAB, Daily, Start date: 02/01/11 9:00:00, Duration: 30 day, Stop date: 03/02/11 9:00:00 Crestor 20 mg, 2 tab, PO No Longer Zeider [facility] Route: PO, Active 2010 Medical Drug form: Center TAB, Daily, Start date: 02/01/11 9:00:00, Duration: 30 day, Stop date: 03/02/11 9:00:00 Lasix 40 mg oral 80 mg, 2 tab, PO No Longer Dean [facility] tablet Route: PO, Active 2010 Medical Drug form: Center TAB, Daily, Start date: 02/01/11 9:00:00, Duration: 30 day, Stop date: 03/02/11 9:00:00 atenolol 50 mg 50 mg, 1 tab, PO No Longer [place] [facility] oral tablet Route: PO, Active 2010 Medical Drug form: Center TAB, Daily, Start date: 02/01/11 9:00:00, Duration: 30 day, Stop date: 03/02/11 9:00:00 [place] Thyroid 120 mg, 2 tab, PO No Longer Zeider [facility] Route: PO, Active 2010 Medical Drug form: Center TAB, Daily, Start date: 02/01/11 9:00:00, Duration: 30 day, Stop date: 03/02/11 9:00:00 dexamethasone 4 mg, 1 tab, PO No Longer Zeider [facility] Route: PO, Active 2010 Medical Drug form: Center TAB, Q8H, Start date: 02/01/11 0:00:00, Duration: 2 day, Stop date: 02/02/11 16:00:00 Humulin N 20 unit, 0.2 SUB-Q No Longer [place] [facility] mL, Route: Active 2010 Medical SUB-Q, Drug Center form: INJ, BID, Start date: 02/01/11 0:00:00, Stop date: 03/02/11 16:00:00 Keppra 100 mg/mL 500 mg, 5 mL, [place] No Longer Zeider [place] oral solution Route: [place], Active 2010 Medical Drug form: Center SOLN, Q12H, Start date: 01/31/11 21:00:00, Duration: 30 day, Stop date: 03/02/11 9:00:00 Insulin regular 1 unit, 0.01 SUB-Q No Longer Nur [facility] mL, Route: Active 2010 Medical SUB-Q, Drug Center form: SOLN, TID-Before Meals, PRN Blood Glucose Results, Start date: 01/31/11 17:22:00, Duration: 30 day, Stop date: 03/02/11 17:21:00 Milk of Magnesia 30 mL, Route: PO No Longer Nur [facility] PO, Drug Form: Active 2010 Medical SUSP, Daily, Center PRN Constipation, Start date: 01/31/11 17:22:00, Duration: 30 day, Stop date: 03/02/11 17:21:00 bisacodyl 10 mg, 1 supp, [place] No Longer Nur [facility] Route: [place], Active 2010 Medical Drug form: Center SUPP, Bedtime, PRN Constipation, Start date: 01/31/11 17:22:00, Duration: 30 day, Stop date: 03/02/11 17:21:00 ondansetron 4 mg, 2 mL, IVP No Longer Nur [facility] Route: IVP, Active 2010 Medical Drug form: Center INJ, Q8H, PRN Nausea & Vomiting, Start date: 01/31/11 17:22:00, Duration: 30 day, Stop date: 03/02/11 17:21:00 Saline Flush 0.9% 3 mL, Route: IVP No Longer Nur [facility] IVP, Drug Active 2010 Medical Form: INJ, Center Q8H, PRN Line Flush, Start date: 01/31/11 17:22:00, Duration: 30 day, Stop date: 03/02/11 17:21:00, Administer at least once every 8 hoursAdministe r at least once every 8 hours [place] Route: SUB-Q, SUB-Q No Longer Zeider [facility] Drug form: Active 2010 Medical INJ, BID, Center Start date: 01/31/11 17:00:00, Duration: 30 day, Stop date: 03/02/11 9:00:00 metFORmin 500 mg 500 mg, 1 tab, PO No Longer Zeider [facility] oral tablet Route: PO, Active 2010 Medical Drug form: Center TAB, Q8H, Start date: 01/31/11 16:00:00, Duration: 30 day, Stop date: 03/02/11 8:00:00 [place] 5/325 oral 1 tab, Route: PO No Longer Zeider [facility] tablet PO, Drug Form: Active 2010 Medical TAB, Q4H, PRN Center as needed for pain, Start date: 01/31/11 14:56:00, Duration: 30 day, Stop date: 03/02/11 14:55:00 bisacodyl 10 mg, Route: [place] No Longer Zeider [facility] UT, Drug form: Active 2010 Medical SUPP, Daily, Center PRN as needed for constipation, Start date: 01/31/11 14:56:00, Duration: 30 day, Stop date: 03/02/11 14:55:00 Keppra 100 mg/mL 500 mg, 5 mL, [place] On Hold ider [facility] oral solution [place], Q12H, 60 2010 Medical mL, Center Substitution Allowed, SOLN docusate sodium 100 mg, 1 cap, PO On Hold Zeider [place] 100 mg oral PO, BID, 60 2010 Medical capsule cap, Center Substitution Allowed, CAP dexamethasone 4 mg 4 mg, 1 tab, PO On Hold Zeider [facility] oral tablet PO, Q6H-02, 60 2010 Medical tab, Center Substitution Allowed, TAB bisacodyl 10 mg 10 mg, 1 supp, [place] On Hold Zeider [facility] rectal suppository [place], Daily, 2010 Medical PRN, 60 supp, Center Constipation, Substitution Allowed, SUPP [place] 5/325 oral 1 tab, PO, PO On Hold Zeider [facility] tablet Q4H, PRN, 60 2010 Medical tab, Headache, Center Substitution Allowed, Maintenance, TAB [place] 5/325 oral 1 tab, Route: PO No Longer Bonner [facility] tablet PO, Drug Form: Active 2010 Medical TAB, Q4H, PRN [place] Headache, Start date: 01/30/11 15:44:00, Duration: 30 day, Stop date: 03/01/11 15:43:00 dexamethasone 4 mg, 1 tab, PO No Longer Christianson [facility] Route: PO, Active 2010 Medical Drug form: [place] TAB, Q6H-02, Start date: 01/29/11 12:00:00, Stop date: 02/28/11 6:00:00 insulin 20 unit, 0.2 SUB-Q No Longer Omidvar [facility] isophane-NPH mL, Route: Active 2010 Medical SUB-Q, Drug Center form: INJ, Q8H, Start date: 01/29/11 8:00:00, Stop date: 02/28/11 0:00:00 Keppra 100 mg/mL 500 mg, 5 mL, JATIN No Longer Boss [facility] oral solution Route: J[place]IN, Active 2010 Medical Drug form: [place] SOLN, Q12H, Start date: 01/28/11 21:00:00, Duration: 30 day, Stop date: 02/27/11 9:00:00 ranitidine 15 150 mg, 10 mL, JATIN No Longer Boss [facility] mg/mL oral syrup Route: JATIN, Active 2010 Medical Drug form: [place] SYRP, Q12H, Start date: 01/28/11 21:00:00, Duration: 30 day, Stop date: 02/27/11 9:00:00 Dextrose 50% 6.25 gm, 12.5 IVP No Longer Shagagi [facility] Syringe mL, Route: Active 2010 Medical IVP, Drug Center Form: INJ, PRN, PRN Abnormal Lab Result, Start date: 01/28/11 17:39:00, Duration: 30 day, Stop date: 02/27/11 17:38:00 insulin regular 3 unit, 0.03 SUB-Q No Longer George [facility] human recombinant mL, Route: Active 2010 Medical 100 units/mL SUB-Q, Drug Center injectable form: SOLN, solution PRN, PRN Abnormal Lab Result, Start date: 01/28/11 17:39:00, Duration: 30 day, Stop date: 02/27/11 17:38:00 metFORmin 1000 mg 1,000 mg, 1 PO No Longer Ash [facility] oral tablet tab, Route: Active 2010 Medical PO, Drug form: Center TAB, BID, Start date: 01/28/11 17:00:00, Duration: 30 day, Stop date: 02/27/11 9:00:00 heparin 5,000 unit, 1 SUB-Q No Longer Burs[place] [facility] mL, Route: Active 2010 Medical SUB-Q, Drug Center form: INJ, Q8H, Start date: 01/28/11 0:00:00, Duration: 30 day, Stop date: 02/26/11 16:00:00 sodium phosphate 18 mmol, 6 mL, IV Active Day [facility] Route: IV, 2010 Medical ONCE, Start Center date: 01/27/11 3:30:00, Stop date: 01/27/11 3:30:00 normal saline 0.9% 1,000 mL, IV No Longer George [facility] IV 1,000 mL Rate: 50 Active 2010 Medical ml/hr, Infuse Center over: 20 hr, Route: IV, Total Volume: 1,000, Start date: 01/26/11 17:48:00, Duration: 30 day, Stop date: 02/25/11 17:47:00 labetalol 200 mg, 1 tab, PO No Longer Burs[place] [facility] Route: PO, Active 2010 Medical Drug form: Center TAB, Q8H, Start date: 01/26/11 16:00:00, Stop date: 02/25/11 8:00:00 dexamethasone 6 mg, 1 tab, PO No Longer Rizvi [facility] Route: PO, Active 2010 Medical Drug form: [place] TAB, Q4H, Start date: 01/26/11 16:00:00, Duration: [...] IVP, Q6H, Active 2010 Medical Start date: [place] 01/26/11 12:00:00, Duration: 30 day, Stop date: 02/25/11 6:00:00 mannitol 75 gm, 375 mL, IVPB No Longer Christian 01/26[facility] Route: IVPB, Active 2010 Medical Drug form: [place] INJ, Q6H, Start date: 01/26/11 12:00:00, Duration: 30 day, Stop date: 02/25/11 6:00:00 mannitol 75 gm, 375 mL, IVPB No Longer Aisiku [facility] Route: IVPB, Active 2010 Medical Drug form: [place] INJ, ONCE, Start date: 01/26/11 10:00:00, Stop date: 01/26/11 10:00:00 potassium 36 mmol, 12 IVPB No Longer Christian 01/26[facility] Dougie phosphate mL, Route: Active 2010 Medical IVPB, On Adm, Center Start date: 01/26/11 3:29:00, Duration: 1 doses or times, Stop date: 01/26/11 8:00:00 mannitol 50 gm, Route: IVPB No Longer [place] 01/25[facility] Dougie IVPB, ONCE, Active 2010 Medical Start date: [place] 01/25/11 17:50:00, Stop date: 01/25/11 17:50:00 heparin 5,000 unit, 1 SUB-Q No Longer Rizvi 01/25[facility] Doug[facility] mL, Route: Active 2010 Medical [...] Route: IVPB, Active 2010 Medical Drug form: [place] INJ, ONCE, Start date: 01/25/11 6:44:00, Duration: 1 doses or times, Stop date: 01/25/11 6:44:00, For Mg=1.5 - 1.7 mg/dLFor Mg=1.5 - 1.7 mg/dL hydrALAZINE 10 mg, 0.5 mL, IV No Longer Christian 01/25[facility] Dougie Route: IV, Active 2010 Medical [...] 12.5 gm, 25 IVP No Longer Christian 08/27[facility] Syringe mL, Route: Active 2010 Medical IVP, Drug Center Form: INJ, PRN, PRN Abnormal Lab Result, Start date: 01/24/11 23:41:00, Duration: 30 day, Stop date: 02/23/11 23:40:00 Insulin regular 100 mL, Rate: IVPB No Longer [place] 01/25[facility] 100 unit + Sodium Start at 0.05 Active 2010 Medical Chloride 0.9% units/kg/hour- Center (titrate) 100 mL , Route: IVPB, Total Volume: 100, Duration: 30 day, Stop date: 02/23/11 23:41:00, Replace Every: 24 hr labetalol 10 mg, 2 mL, IV No Longer [place] 01/25[facility] Route: IV, Active 2010 Medical Drug form: [place] INJ, Q15Min, PRN Hypertension, Start date: 01/24/11 22:36:00, Duration: 30 day, Stop date: 02/23/11 22:35:00 levetiracetam 500 mg, Route: IV No Longer [place] 01/25[facility] IV, Q12H, Active 2010 Medical Start date: [place] 01/24/11 21:00:00, Duration: 30 day, Stop date: 02/23/11 9:00:00 famotidine 20 mg, 2 mL, IV No Longer [place] 01/25[facility] Route: IV, Active 2010 Medical Drug form: [place] INJ, Q12H, Start date: 01/24/11 21:00:00, Stop date: 02/23/11 9:00:00 propofol 10 mg/ml 1,000 mg, 100 IV No Longer [place] 01/25[facility] (titrate) 1,000 mg mL, Rate: Active 2010 Medical Titrate as Center directed, Route: IV, Total Volume: 100 ml, Start date: 01/24/11 20:56:00, Duration: 30 day, Stop date: 02/23/11 20:55:00, Replace Every: 12 hr chlorhexidine 15 ml, Route: S&SPIT No Longer Ryan [facility] topical 0.12% S&SPIT, Q4H, Active 2010 Medical liquid Drug form: [place] LIQ, Start date: 01/24/11 20:00:00, Duration: 30 day, Stop date: 02/23/11 16:00:00 niCARdipine 40 mg 40 mg, 200 mL, IV No Longer [place] in [place] 200 ml IV 40 Rate: Titrate, Active 2010 Medical mg Route: IV, Center Total Volume: 200 mL, Duration: 30 day, Stop date: 02/23/11 19:06:00, Replace Every: 24 hr vancomycin 1 gm, Route: IVPB No Longer Boss [facility] IVPB, Drug Active 2010 Medical form: INJ, Center [id number], Start date: 01/24/11 9:00:00, Duration: 30 day, Stop date: 02/22/11 21:00:00 famotidine 20 mg 20 mg, 1 tab, PO No Longer Christian [facility] oral tablet Route: PO, Active 2010 Medical Drug form: Center TAB, Q12H, Start date: 01/23/11 21:00:00, Duration: 30 day, Stop date: 02/22/11 9:00:00 potassium chloride 20 mEq, PO, PO On Hold [facility] 20 mEq oral Daily, 2010 Medical tablet, extended Substitution Center release Allowed, TAB Lasix 40 mg oral 80 mg, 2 tab, PO On Hold [facility] tablet PO, Daily, 2010 Medical tab, Center Substitution Allowed, TAB heparin 5000 5,000 unit, 1 SUB-Q No Longer [place] units/mL mL, Route: Active 2010 Medical injectable SUB-Q, Drug Center solution form: INJ, Q8H, Start date: 01/23/11 16:00:00, Duration: 30 day, Stop date: 02/22/11 8:00:00 [place] 250 mcg, SUB-Q On Hold [facility] SUB-Q, BID, 2010 Medical Substitution Center Allowed, INJ cephalexin 500 mg, PO, PO On Hold [facility] monohydrate 500 mg TID, 2010 Medical oral tablet Substitution Center Allowed, CAP Levaquin 500 mg 1 tab, PO, PO On Hold [facility] oral tablet Q24H, 10 tab, 2010 Medical Substitution Center Allowed, TAB metFORmin 500 mg 500 mg, PO, PO On Hold [facility] oral tablet TID, 2010 Medical Substitution Center Allowed, TAB Crestor 20 mg oral 1 tab, PO, PO On Hold [place] tablet Daily, 30 tab2010 Medical Substitution Center Allowed, TAB benzonatate 200 mg 1 cap, PO, PO On Hold [facility] oral capsule TID, 30 cap, 2010 Medical Substitution Center Allowed, CAP atenolol 50 mg 1 tab, PO, PO On Hold [facility] oral tablet Daily, 30 tab, 2010 Medical Substitution Center Allowed [place] Thyroid 120 1 tab, PO, PO On Hold [facility]ider [place] mg oral tablet Daily, 30 tab2010 Medical Substitution Center Allowed, TAB docusate 100 mg, 1 cap, PO No Longer Ryan [place] Route: PO, Active 2010 Medical Drug form: [place] CAP, BID, Start date: 01/23/11 9:00:00, Stop date: 02/21/11 17:00:00 Senna 8.6 mg oral 8.6 mg, 1 tab, PO No Longer Nur [facility] tablet Route: PO, Active 2010 Medical Drug Form: [place] TAB, Q12H, Start date: 01/23/11 9:00:00, Duration: 30 day, Stop date: 02/21/11 21:00:00 levetiracetam 500 mg, 1 tab, PO No Longer Christian [facility] Route: PO, Active 2010 Medical Drug form: [place] TAB, Q12H, Start date: 01/23/11 9:00:00, Duration: 30 day, Stop date: 02/21/11 21:00:00 calcium chloride 1,000 mg, 10 IVPB No Longer Day [facility] mL, Route: Active 2010 Medical IVPB, ONCE, Center Start date: 01/23/11 8:30:00, Stop date: 01/23/11 8:30:00 magnesium sulfate 2 gm, 50 mL, IVPB No Longer Day [facility] Route: IVPB, Active 2010 Medical Drug form: [place] INJ, Q2H, Start date: 01/23/11 8:20:00, Duration: 2 doses or times, Stop date: 01/23/11 10:00:00 dexamethasone 4 mg, 1 tab, PO No Longer Christian [facility] Route: PO, Active 2010 Medical Drug form: Center TAB, Q6H, Start date: 01/23/11 6:00:00, Duration: 30 day, Stop date: 02/22/11 0:00:00 acetaminophen 650 mg, 2 tab, PO No Longer Nur [facility] Route: PO, Active 2010 Medical Drug form: Center TAB, Q4H, PRN Pain/Fever, Start date: 01/23/11 5:22:00, Duration: 30 day, Stop date: 02/22/11 5:21:00 morphine Sulfate 2 mg, 1 mL, IVP No Longer Rizvi [facility] Route: IVP, Active 2010 Medical Drug form: [...] regular 5 unit, 0.05 SUB-Q No Longer [place] [facility] human recombinant mL, Route: Active 2010 [facility] 100 units/mL SUB-Q, Drug Center injectable form: SOLN, solution PRN, PRN Abnormal Lab Result, Start date: 01/23/11 5:14:00, Duration: 30 day, Stop date: 02/22/11 5:13:00 Dextrose 50% 6.25 gm, 12.5 IVP No Longer Nur 01/23[facility] Syringe mL, Route: Active 2010 [facility] IVP, Drug Center Form: INJ, PRN, PRN Abnormal Lab Result, Start date: 01/23/11 5:14:00, Duration: 30 day, Stop date: 02/22/11 5:13:00 Saline Flush 0.9% 5 ml, Route: IVP No Longer Nur 01/23[facility] IVP, Drug Active 2010 Medical Form: INJ, Center PRN, PRN Line Flush, Start date: 01/23/11 5:14:00, Duration: 30 day, Stop date: 02/22/11 5:13:00 bisacodyl 10 mg, 1 supp, [place] No Longer [place] 01/23[facility] [place] Route: [place], Active 2010 Medical Drug form: Center SUPP, Daily, PRN Constipation, Start date: 01/23/11 5:14:00, Duration: 30 day, Stop date: 02/22/11 5:13:00 acetaminophen 650 mg, 2 tab, PO No Longer Boom [facility] [place] Route: PO, Active 2010 Medical Drug form: Center TAB, Q4H, PRN Pain/Fever, Start date: 01/23/11 5:14:00, Duration: 30 day, Stop date: 02/22/11 5:13:00 morphine Sulfate 2 mg, 1 mL, IVP No Longer [place] 01/23[facility] Route: IVP, Active 2010 Medical Drug form: Center INJ, Q1H, PRN Pain Score 7-10, Start date: 01/23/11 5:14:00, Duration: 30 day, Stop date: 02/22/11 5:13:00 ondansetron 4 mg, 2 mL, IVP No Longer [place] 01/23[facility] Route: IVP, Active 2010 Medical Drug form: Center INJ, Q8H, PRN Nausea & Vomiting, Start date: 01/23/11 5:14:00, Duration: 30 day, Stop date: 02/22/11 5:13:00 Allergies, Adverse Reactions, Alerts Substance Category Reaction Severity Reaction Status Date Comments Source type Reported penicillins< Assertion rash Drug Active Data [facility] sup>1</sup> allergy 1 migrated Medical from [facility] on 01/22/15. Originally documented as PCN. erythromycin Assertion Drug Active Data [facility] <sup>2</sup> allergy 1 migrated Medical from [facility] on 01/22/15. Originally documented as ERYTHROMYC IN. aspirin<sup> Assertion severe Drug Active Data [facility] 3</sup> chest allergy 1 migrated Medical pain from [facility] on 01/22/15. Originally documented as ASPIRIN. Adhesive Assertion Allergy to Active Data [facility] Tape<sup>4</ substance 1 migrated Medical sup> [facility] on 08/01/15. Originally documented as ADHESIVE TAPE. PHENobarbita Assertion Drug Active Data [facility] l<sup>5</sup allergy 1 migrated Medical > from [facility] on 01/22/15. Originally documented as PHENOBARBI COSTA. aspirin allergy to severe Allergy Active [facility] substance chest Medical pain Center erythromycin drug Allergy Active [facility] penicillins drug rash Allergy Active [facility] phenobarbita Assertion rash Drug Active [facility] Silk Tape propensity takes Adverse Active [facility] to adverse skin off Reaction Medical reactions Center to substance ciprofloxaci Assertion Drug Active [facility] n [facility] cefepime Assertion Drug Active [facility] Cortizone-10 Assertion Drug Active [facility] heparin Assertion Severe Drug Active [facility] Immunizations No Data Provided for This Section [...] CHEM PANEL Creatinine 0.79 0.50 - 11/29 [facility] 1.40 [facility] CHEM PANEL Glucose Lvl 104 70 - 99 11/29 [facility] CHEM PANEL Potassium 4.2 3.5 - 5.1 11/29 [facility] CHEM PANEL BUN 19 7 - 22 11/29 [facility] CHEM PANEL Calcium Lvl 9.3 8.5 - 10.5 11/29 [facility] CHEM PANEL Sodium Lvl 140 135 - 145 11/29 [facility] CHEM PANEL CO2 30 24 - 32 11/29 [facility] CHEM PANEL Chloride Lvl 104 95 - 109 11/29 [facility] [address] [place] [address] CHEM PANEL AGAP 10.2 10.0 - 11/29 [place] 20.0 /2018 [facility] URINE AND UA WBC 0-2 /HPF None Seen 11/29 [facility] STOOL /HPF /2018 [facility] URINE AND UA Bacteria Few /HPF None Seen 11/29 [facility] STOOL /HPF /2018 [facility] URINE AND UA Sq Epi Moderate Few /LPF 11/29 [facility] /LPF /2018 [facility] URINE AND UA RBC None Seen 0 - 2 11/29 [facility] (11/29/18 10:09 AM) [facility] URINE AND UA Mucus Few /LPF None Seen 11/29 [facility] /LPF /2018 [facility] URINE AND UA CaOx Jagruti Moderate None Seen 11/29 [facility] STOOL /HPF /HPF /2018 [facility] URINE AND UA 0.2 0.1 - 1.0 11/29 [facility] Urobilinogen /2018 [facility] URINE AND UA Blood Negative Negative 11/29 [facility] (11/29/18 10:09 AM) /2018 [facility] URINE AND UA Nitrite Negative Negative 11/29 [facility] (11/29/18 10:09 AM) [facility] Center URINE AND UA Bili Small Negative 11/29 [facility] STOOL *ABN* /2018 [facility] (11/29/18 10:09 AM) [place] URINE AND UA Leuk Est Negative Negative 11/29 [facility] (11/29/18 10:09 AM) [facility] URINE AND UA Protein 100 mg/dL Negative 11/29 [facility] STOOL mg/dL /2018 [facility] URINE AND UA pH 5.5 5.0 - 8.0 11/29 [facility] /2018 [facility] URINE AND UA Ketones Negative Negative 11/29 [facility] *NA* /2018 [facility] (11/29/18 10:09 AM) [place] URINE AND UA Glucose Negative Negative 11/29 [facility] (11/29/18 10:09 AM) [facility] URINE AND UA Color Yellow Yellow 11/29 [facility] STOOL *NA* /2018 Medical (11/29/18 10:09 AM) [place] URINE AND UA Turbidity Slight Cloudy Clear 11/29 [facility] STOOL (11/29/18 10:09 AM) /2018 [facility] URINE AND UA Spec Grav >=1.030 <=1.030 11/29 [facility] STOOL *ABN* /2018 [facility] (11/29/18 10:09 AM) [place] HEMATOLOGY MPV 10.6 7.4 - 10.4 09/23 [facility] HEMATOLOGY MCV 91.5 80.0 - 09/23 [place] 98.0 [facility] HEMATOLOGY Hct 42.9 36.0 - 09/23 [place] 48.0 [facility] HEMATOLOGY MCH 31.0 27.0 - 09/23 [place] 31.0 [facility] HEMATOLOGY RDW 14.1 11.5 - 09/23 [place] 14.5 [facility] HEMATOLOGY MCHC 33.8 32.0 - 09/23 [place] 36.0 [facility] HEMATOLOGY Platelet 128 133 - 450 09/23 [facility] HEMATOLOGY Hgb 14.5 12.0 - 09/23 [place] 16.0 [facility] HEMATOLOGY WBC 10.8 3.7 - 10.4 09/23 [facility] HEMATOLOGY RBC 4.69 4.20 - 09/23 [place] 5.40 /2018 [facility] HEMATOLOGY Eosinophils 0.1 0.0 - 0.5 09/23 [place] # /2018 [facility] HEMATOLOGY Segs 70.7 45.0 - 09/23 [place] 75.0 [facility] HEMATOLOGY Lymphocytes 21.8 20.0 - 09/23 [place] 40.0 2019 [facility] HEMATOLOGY Lymphocytes 2.4 1.0 - 5.5 09/23 [place] # /2019 [facility] HEMATOLOGY Neutrophils 7.6 1.5 - 8.1 09/23 [facility] HEMATOLOGY Monocytes # 0.7 0.0 - 0.8 09/23 /2018 [facility] HEMATOLOGY Monocytes 6.7 2.0 - 12.0 09/23 2018 [facility] HEMATOLOGY Basophils 0.3 0.0 - 1.0 09/23 [facility] HEMATOLOGY Eosinophils 0.5 0.0 - 4.0 09/23 2018 [facility] CHEM PANEL Magnesium 2.2 1.8 - 2.4 09/23 [facility] CHEM PANEL Phosphorus 3.0 2.5 - 4.5 09/23 [facility] CHEM PANEL eGFR 69 09/23 Result Comment: [...] PANEL CO2 28 24 - 32 09/23 [facility] CHEM PANEL Sodium Lvl 141 135 - 145 09/23 [facility] CHEM PANEL Potassium 3.8 3.5 - 5.1 09/23 [facility] CHEM PANEL Chloride Lvl 107 95 - 109 09/23 [facility] CHEM PANEL AGAP 9.8 10.0 - 09/23 20.0 [facility] CHEM PANEL Calcium Lvl 8.1 8.5 - 10.5 09/23 [facility] CHEM PANEL BUN 23 7 - 22 09/23 [facility] CHEM PANEL Creatinine 0.86 0.50 - 09/23 [facility] CHEM PANEL Glucose Lvl 43 70 - 99 09/23 Result Comment: [facility] Result(s) called to Mony Figueroa at 09/23/2018 08:35 by . Read back OK.
Reche cked HEMATOLOGY Hgb 14.6 12.0 - 09/23 [place] 16.0 [facility] HEMATOLOGY Hct 44.7 36.0 - 09/23 [facility] 48.0 [facility] HEMATOLOGY RBC 4.85 4.20 - 09/23 [place] 5.40 /2018 [facility] HEMATOLOGY WBC 14.1 3.7 - 10.4 09/23 [facility] HEMATOLOGY MPV 10.9 7.4 - 10.4 09/23 2018 [facility] HEMATOLOGY RDW 14.2 11.5 - 09/23 [facility] 14.5 [facility] HEMATOLOGY Platelet 114 133 - 450 09/23 2018 [facility] HEMATOLOGY MCV 92.2 80.0 - 09/23 [facility] 98.0 [facility] HEMATOLOGY MCH 30.1 27.0 - 09/23 [place] 31.0 [facility] HEMATOLOGY MCHC 32.6 32.0 - 09/23 [facility] 36.0 [facility] PARATHYROID Ca Norm WB 1.05 1.05 - 09/23 [facility] PROFILE 06.25 [facility] PARATHYROID Ca Ion WB 1.00 1.05 - 09/23 [facility] PROFILE 06.25 [facility] CHEM PANEL Bili Total 0.6 0.2 - 1.3 09/22 [facility] CHEM PANEL AST 35 0 - 37 09/22 2018 [facility] CHEM PANEL Alk Phos 95 39 - 136 09/22 2018 [facility] CHEM PANEL ALT 47 0 - 65 09/22 2018 [facility] CHEM PANEL eGFR 52 09/22 [facility] Comment: The Medical eGFR is Center [...] Albumin Lvl 2.3 3.5 - 5.0 09/[address] CHEM PANEL Total 7.1 6.4 - 8.4 09/22 [facility] Protein 2018 [facility] CHEM PANEL CO2 26 24 - 32 09/[address] CHEM PANEL Calcium Lvl 8.1 8.5 - 10.5 09/[address] CHEM PANEL Chloride Lvl 102 95 - 109 09/[address] CHEM PANEL Potassium 4.3 3.5 - 5.1 09/22 [facility]2018 [facility] CHEM PANEL Sodium Lvl 135 135 - 145 09/[address] CHEM PANEL Creatinine 1.07 0.50 - 09/22 [facility] Lvl 1.40 [facility] CHEM PANEL Glucose Lvl 272 70 - 99 09/[address] CHEM PANEL BUN 29 7 - 22 09/[address] CHEM PANEL Globulin 4.8 2.7 - 4.2 09/[address] CHEM PANEL A/G Ratio 0.5 0.7 - 1.6 09/[address] CHEM PANEL B/C Ratio 27 6 - 25 09/[address] CHEM PANEL AGAP 11.3 10.0 - 09/22 [facility] 20.0 [facility] HEMATOLOGY Monocytes 6.5 2.0 - 12.0 09/[address] HEMATOLOGY Eosinophils 0.1 0.0 - 4.0 09/[address] HEMATOLOGY Basophils 0.2 0.0 - 1.0 09/[address] HEMATOLOGY Segs 73.8 45.0 - 09/22 [place] 75.0 [facility] HEMATOLOGY Lymphocytes 19.4 20.0 - 09/22 [place] 40.0 2019 [facility] HEMATOLOGY Neutrophils 6.0 1.5 - 8.1 09/22 [facility]2018 [facility] HEMATOLOGY Lymphocytes 1.6 1.0 - 5.5 09/[address] HEMATOLOGY Monocytes # 0.5 0.0 - 0.8 09/[address] HEMATOLOGY MPV 11.3 7.4 - 10.4 09/22 [facility]2018 [facility] HEMATOLOGY MCHC 33.1 32.0 - 09/22 [facility] 36.0 [facility] HEMATOLOGY RDW 14.0 11.5 - 09/22 [facility] 14.5 [facility] HEMATOLOGY Platelet 106 133 - 450 09/22 [facility] HEMATOLOGY MCV 93.1 80.0 - 09/22 [facility] 98.0 [facility] HEMATOLOGY Hct 44.2 36.0 - 09/22 48.0 [facility] HEMATOLOGY MCH 30.8 27.0 - 09/22 31.0 [facility] HEMATOLOGY RBC 4.74 4.20 - 09/22 [facility] 5.40 [facility] HEMATOLOGY WBC 8.1 3.7 - 10.4 09/22 [facility] HEMATOLOGY Hgb 14.6 12.0 - 09/22 [facility] 16.0 [facility] CHEM PANEL Phosphorus 3.3 2.5 - 4.5 09/18 [facility] CHEM PANEL Magnesium 2.0 1.8 - 2.4 09/18 [facility] CHEM PANEL eGFR 70 09/18 [facility] Comment: The Medical eGFR is Center [...] Calcium Lvl 8.7 8.5 - 10.5 09/18 [facility] CHEM PANEL Creatinine 0.84 0.50 - 09/18 [facility] Lvl 1.40 [facility] CHEM PANEL Sodium Lvl 142 135 - 145 09/18 [facility] CHEM PANEL BUN 32 7 - 22 09/18 [facility] CHEM PANEL Chloride Lvl 106 95 - 109 09/18 [facility]2018 [facility] CHEM PANEL CO2 32 24 - 32 09/18 2018 [facility] CHEM PANEL Potassium 3.9 3.5 - 5.1 09/18 [facility] Lvl [facility] CHEM PANEL Glucose Lvl 107 70 - 99 09/[address] CHEM PANEL AGAP 7.9 10.0 - 09/18 [place] 20.0 [facility] HEMATOLOGY Monocytes # 0.7 0.0 - 0.8 09/18 [facility]2018 [facility] HEMATOLOGY Lymphocytes 1.7 1.0 - 5.5 09/18 [facility] /2018 [facility] HEMATOLOGY Neutrophils 6.0 1.5 - 8.1 09/18 [facility] HEMATOLOGY Basophils 0.1 0.0 - 1.0 09/18 [facility]2018 [facility] HEMATOLOGY Monocytes 8.5 2.0 - 12.0 09/18 [facility]2018 [facility] HEMATOLOGY Lymphocytes 20.3 20.0 - 09/18 [place] 40.0 [facility] HEMATOLOGY Segs 71.1 45.0 - 09/18 [place] 75.0 [facility] HEMATOLOGY MCHC 33.8 32.0 - 09/18 [place] 36.0 [facility] HEMATOLOGY RDW 14.1 11.5 - 09/18 [facility] 14.5 [facility] HEMATOLOGY MCH 31.2 27.0 - 09/18 [facility] 31.0 [facility] HEMATOLOGY MCV 92.2 80.0 - 09/18 [facility] 98.0 [facility] HEMATOLOGY Hct 44.7 36.0 - 09/18 [place] 48.0 2019 [facility] HEMATOLOGY RBC 4.85 4.20 - 09/18 [place] 5.40 2019 [facility] HEMATOLOGY WBC 8.5 3.7 - 10.4 09/18 [facility]2018 [facility] HEMATOLOGY Hgb 15.1 12.0 - 09/18 [place] 16.0 2019 [facility] HEMATOLOGY MPV 11.8 7.4 - 10.4 09/18 [facility]2018 [facility] HEMATOLOGY Platelet 81 133 - 450 09/18 [facility]2018 [facility] PARATHYROID Ca Ion WB 1.09 1.05 - 09/18 [place] PROFILE 1. [facility] PARATHYROID Ca Norm WB 1.09 1.05 - 09/18 [facility] PROFILE 1.25 [facility] CHEM PANEL Magnesium 2.0 1.8 - 2.4 09/17 [facility] CHEM PANEL Calcium Lvl 8.6 8.5 - 10.5 09/17 [facility]2018 [facility] CHEM PANEL AGAP 6.4 10.0 - 09/17 [facility] 20.0 [facility] CHEM PANEL eGFR 70 09/17 Result Comment: [...] PANEL Potassium 3.4 3.5 - 5.1 09/17 [facility] CHEM PANEL Sodium Lvl 142 135 - 145 09/17 [facility]2018 [facility] CHEM PANEL Chloride Lvl 104 95 - 109 09/17 [facility]2018 [facility] CHEM PANEL Creatinine 0.84 0.50 - 09/17 [facility] 1[facility] CHEM PANEL CO2 35 24 - 32 09/17 [facility]2018 [facility] CHEM PANEL Glucose Lvl 112 70 - 99 09/17 [facility]2018 [facility] CHEM PANEL BUN 37 7 - 22 09/17 [facility]2018 [facility] CHEM PANEL Phosphorus 2.6 2.5 - 4.5 09/17 [facility]2018 [facility] HEMATOLOGY Platelet 71 133 - 450 09/17 [facility]2018 [facility] HEMATOLOGY MCHC 33.1 32.0 - 04 [facility] 36.0 [facility] HEMATOLOGY MPV 10.7 7.4 - 10.4 09/17 [facility] HEMATOLOGY RDW 14.1 11.5 - 09/17 [place] 14.5 [facility] HEMATOLOGY MCH 30.4 27.0 - 09/17 [place] 31.0 [facility] HEMATOLOGY WBC 9.7 3.7 - 10.4 09/17 [facility] HEMATOLOGY MCV 92.0 80.0 - 09/17 [place] 98.0 [facility] HEMATOLOGY Hct 44.7 36.0 - 09/17 [place] 48.0 [facility] HEMATOLOGY RBC 4.86 4.20 - 09/17 [place] 5.40 /2018 [facility] HEMATOLOGY Hgb 14.8 12.0 - 09/17 [place] 16.0 [facility] HEMATOLOGY Lymphocytes 1.4 1.0 - 5.5 09/17 [facility] # [facility] HEMATOLOGY Neutrophils 7.6 1.5 - 8.1 09/17 [facility] # [facility] HEMATOLOGY Monocytes 7.0 2.0 - 12.0 09/17 [facility] HEMATOLOGY Basophils 0.5 0.0 - 1.0 09/17 [facility] HEMATOLOGY Lymphocytes 14.4 20.0 - 09/17 [place] 40.0 [facility] HEMATOLOGY Monocytes # 0.7 0.0 - 0.8 09/17 [facility] HEMATOLOGY Segs 78.1 45.0 - 09/17 [facility] 75.0 [facility] PARATHYROID Ca Ion WB 1.11 1.05 - 09/17 [facility] PROFILE 1. [facility] PARATHYROID Ca Norm WB 1.14 1.05 - 09/17 [facility] PROFILE 1. [facility] CHEM PANEL Magnesium 2.1 1.8 - 2.4 09/16 [facility] Lvl [facility] CHEM PANEL Phosphorus 2.0 2.5 - 4.5 09/16 [facility] ELECTROLYTE AGAP 8.1 10.0 - 09/16 [facility] S 20.0 [facility] ELECTROLYTE eGFR 47 09/16 [facility] Comment: The Medical eGFR is [...] ELECTROLYTE CO2 33 24 - 32 09/16 [facility] 2018 [facility] ELECTROLYTE Calcium Lvl 8.4 8.5 - 10.5 09/16 [facility]2018 [facility] ELECTROLYTE Potassium 4.1 3.5 - 5.1 09/16 Result [facility] Comment: [facility] Moderately Hemolyzed. ELECTROLYTE Chloride Lvl 102 95 - 109 09/16 [facility]2018 [facility] ELECTROLYTE Sodium Lvl 139 135 - 145 09/16 [facility] [facility]2018 [facility] ELECTROLYTE BUN 37 7 - 22 09/[address] ELECTROLYTE Creatinine 1.17 0.50 - 09/16 [facility] Lvl 1.40 [facility] ELECTROLYTE Glucose Lvl 302 70 - 99 09/16 [facility] [facility]2018 [facility] HEMATOLOGY Platelet 77 133 - 450 09/16 [facility]2018 [facility] HEMATOLOGY MCHC 33.5 32.0 - 09/16 [place] 36.0 [facility] HEMATOLOGY RDW 14.2 11.5 - 09/16 [place] 14.5 [facility] HEMATOLOGY MPV 11.1 7.4 - 10.4 09/16 [facility]2018 [facility] HEMATOLOGY MCV 92.4 80.0 - 09/16 [place] 98.0 [facility] HEMATOLOGY MCH 31.0 27.0 - 09/16 [facility] 31.0 [facility] HEMATOLOGY Hct 41.6 36.0 - 09/16 [place] 48.0 [facility] HEMATOLOGY RBC 4.50 4.20 - 09/16 [facility] 5.40 [facility] HEMATOLOGY Hgb 14.0 12.0 - 09/16 [place] 16.0 [facility] HEMATOLOGY WBC 10.6 3.7 - 10.4 09/16 [facility]2018 [facility] HEMATOLOGY Neutrophils 8.8 1.5 - 8.1 09/16 [facility] # /2018 [facility] HEMATOLOGY Monocytes # 0.7 0.0 - 0.8 09/16 [facility] /2018 [facility] HEMATOLOGY Basophils 0.3 0.0 - 1.0 09/16 [facility] /2018 [facility] HEMATOLOGY Lymphocytes 1.0 1.0 - 5.5 09/16 [facility] # /2019 [facility] HEMATOLOGY Segs 83.3 45.0 - 09/16 [place] 75.0 /2018 [facility] HEMATOLOGY Lymphocytes 9.9 20.0 - 09/16 [facility] 40.0 [facility] HEMATOLOGY Monocytes 6.5 2.0 - 12.0 09/16 [facility] /2018 [facility] PARATHYROID Ca Norm WB 1.13 1.05 - 09/16 [place] PROFILE 1. [facility] PARATHYROID Ca Ion WB 1.13 1.05 - 09/16 [facility] PROFILE . [facility] URINE AND UA Renal Epi 3 <=0 /LPF 09/15 [facility] [address] [place] [address] URINE AND UA Bacteria Occasional None Seen 09/15 [facility] STOOL /HPF /HPF /2018 [facility] URINE AND UA Mucus Few /LPF None Seen 09/15 [facility] /LPF [address] [place] [address] URINE AND UA Hyal Cast 1 0 - 2 09/15 [facility] /[address] [place] [address] URINE AND UA Amorph Occasional None Seen 09/15 [facility] STOOL Jag[facility] /HPF /HPF [address] [place] [address] URINE AND UA Protein 30 mg/dL Negative 09/15 [facility] mg/dL /[address] [place] [address] URINE AND UA pH 5.5 5.0 - 8.0 09/15 [facility] [address] [place] [address] URINE AND UA Glucose 250 Negative 09/15 [facility] STOOL *ABN* /2018 [facility] (09/15/18 5:04 PM) [place] URINE AND UA Ketones Negative Negative 09/15 [facility] *NA* /2018 [facility] (09/15/18 5:04 PM) [place] URINE AND UA WBC 5 0 - 5 09/15 [facility] /[address] [place] [address] URINE AND UA RBC 4 0 - 2 09/[address] URINE AND UA Sq Epi Occasional Few /LPF 09/15 [facility] STOOL /LPF /[address] [place] [address] URINE AND UA Leuk Est Negative Negative 09/15 [facility] (4/17/19 5:04 PM) /[address] [place] [address] URINE AND UA Blood Negative Negative 09/15 [facility] STOOL (09/15/18 5:04 PM) [facility] URINE AND UA 0.2 0.1 - 1.0 09/15 [facility] Urobilinogen /2018 [facility] URINE AND UA Nitrite Negative Negative 09/15 [facility] (09/15/18 5:04 PM) [facility] URINE AND UA Bili Negative Negative 09/15 [facility] *NA* /2018 [facility] (09/15/18 5:04 PM) [place] URINE AND UA Spec Grav 1.025 <=1.030 09/15 [facility] STOOL /2018 [facility] URINE AND UA Turbidity Clear Clear 09/15 [facility] (09/15/18 5:04 PM) [facility] URINE AND UA Color Yellow Yellow 09/15 [facility] *NA* /2018 [facility] (09/15/18 5:04 PM) [place] IMMUNOLOGY Striated 1:320 Neg:<1:40 09/15 Result [facility] Muscle IgG Comment: Medical Performed At: [facility]
[address] [place], [place] [id number]<br/ >Kosta Tucker MD Ph:[phone] IMMUNOLOGY MuSK Auto Ab <1.0 09/14 Result [facility] Comment: [facility] Reference [facility] Range:
Negative: <1.0
[...] 0.
2. Yeny AVILEZ et al. PNAS 2013;110(29); [id number].< br/>3. Scot E et al. Neurology 2006;67:505-5 07.
This test was developed and its performance characteristi cs
determ ined by [facility]. It has not been cleared or approved
by the Food and Drug Administratio n.
Perfor med At: [facility]
[address] [place], [place] [id number]<br/ >Feliciano Alston MD Ph:[phone] BACTERIAL - MRSA by PCR Negative 09/14 [facility] SEROLOGY (09/14/18 11:23 AM) /2018 [facility] IMMUNOLOGY ACHr Binding 1.25 0.00 - 09/14 Result [facility] Ab 0.24 Comment: [facility] Negative: 0.00 - 0.24
Borderline: 0.25 - 0.40
Positive: > 0.40
Perf ormed At: [facility]
[address] [place], [place] [id number]<br/ >Kosta Tucker MD Ph:[phone] IMMUNOLOGY ACHr Block 42 0 - 25 09/14 Result [facility] Ab /2018 Comment: [facility] Negative: 0 - 25
Borderline: 26 - 30
Positive: >30

Results for this test are for research purposes
only by the assay's animal killer. The performance<b r/>characteri stics of this product have not been
esta blished. Results should not be used as a
diagnos tic procedure without confirmation of the
diagn osis by another medically established<b r/>diagnostic product or procedure.&lt ;br/>Performe d At: [facility]
[address] [place], [place] [id number]<br/ >Kosta Tucker MD Ph:[phone] HEMATOLOGY Eosinophils 0.1 0.0 - 0.5 09/13 [facility] /[address] [place] [address] HEMATOLOGY Basophils # 0.1 0.0 - 0.2 09/[address] HEMATOLOGY Eosinophils 1.1 0.0 - 4.0 09/[address] HEMATOLOGY Basophils # 0.1 0.0 - 0.2 09/[address] HEMATOLOGY Eosinophils 0.1 0.0 - 0.5 09/13 [facility] /2018 [facility] HEMATOLOGY Eosinophils 0.9 0.0 - 4.0 09/[address] HEMATOLOGY PB Smear Peripheral 09/12 [facility] blood [facility] smear Center examinatio n; - Platelets are decreased with few giant forms. No platelet clump. - RBCs are normocytic ; no schistocyt e - Leukocytes show unremarkab le morphology ; few reactive lymphocyte s. Clinical correlatio n is suggested. CPT 07614 URINE AND UA Bacteria Occasional None Seen 09/12 [facility] /HPF /HPF [facility] URINE AND UA <1.0 0.1 - 1.0 09/12 [facility] Urobilinogen /2018 [facility] URINE AND UA Ketones Trace Negative 09/12 [facility] *ABN* [facility] (09/12/18 11:27 AM) [place] URINE AND UA Blood Small Negative 09/12 [facility] *ABN* [facility] (09/12/18 11:27 AM) [place] URINE AND UA Bili Negative Negative 09/12 [facility] *NA* [facility] (09/12/18 11:27 AM) [place] URINE AND UA Glucose 150mg/dl 09/12 [facility] /2018 [facility] URINE AND UA Protein 100 mg/dL Negative 09/12 [facility] mg/dL [facility] URINE AND UA Turbidity Slight Clear 09/12 [facility] *ABN* [facility] (09/12/18 11:27 AM) [place] URINE AND UA pH 5.0 5.0 - 8.0 09/12 [facility] /[address] [place] [address] URINE AND UA Spec Grav 1.018 <=1.030 09/12 [facility] [address] [place] [address] URINE AND UA Color Yellow Yellow 09/12 [facility] STOOL *NA* /2018 [facility] (09/12/18 11:27 AM) [place] URINE AND UA Mucus Few /LPF None Seen 09/12 [facility] /[facility] [address] [place] [address] URINE AND UA Hyal Cast 4 0 - 2 09/12 [facility] URINE AND UA WBC 4 0 - 5 09/[address] URINE AND UA Nitrite Negative Negative 09/12 [facility] (09/12/18 11:27 AM) [facility] URINE AND UA RBC 1 0 - 2 09/[address] URINE AND UA Sq Epi Moderate Few /LPF 09/12 [facility] /[facility] URINE AND UA Leuk Est Negative Negative 09/12 [facility] (09/12/18 11:27 AM) [facility] CHEM PANEL Bili Total 0.7 0.2 - 1.3 09/[address] CHEM PANEL Alk Phos 141 39 - 136 09/[address] CHEM PANEL Total 8.3 6.4 - 8.4 09/12 [facility] CHEM PANEL AST 25 0 - 37 09/[address] CHEM PANEL ALT 34 0 - 65 09/[address] CHEM PANEL Albumin Lvl 2.7 3.5 - 5.0 09/[address] CHEM PANEL Globulin 5.6 2.7 - 4.2 09/[address] CHEM PANEL B/C Ratio 9 6 - 25 09/[address] CHEM PANEL A/G Ratio 0.5 0.7 - 1.6 09/[address] HEMATOLOGY PTT 31.6 22.9 - 09/12 [place] 35.8 2019 [facility] HEMATOLOGY PT 14.2 12.0 - 09/12 [facility] 14.7 [facility] HEMATOLOGY INR 1.12 0.85 - 09/12 [place] 1.17 [facility] HEMATOLOGY Eosinophils 2.4 0.0 - 4.0 09/[address] HEMATOLOGY Eosinophils 0.2 0.0 - 0.5 09/12 [facility] # /2019 [facility] HEMATOLOGY Basophils # 0.2 0.0 - 0.2 09/12 [facility] /2019 [facility] IMMUNOLOGY JAK2 (V617F) Comment 09/12 Result [facility] Director /2018 Comment: Medical Review Marlys Villanueva MD, PhD
[facility] anthony, Molecular Oncology
[facility]<br/ >[place] [address]
1-8 [phone]<b r/>Performed At: [facility] RT[facility]
[address] [facility], [place] [id number]< br/>Samara Cordova MD Ph:[phone] IMMUNOLOGY JAK2 (V617F) Comment 09/12 Result [facility] References Comment: Medical
[facility] EJ, Sanchez WISE, Javed PJ, et al. Acquired
mutation of the tyrosine kinase JAK2 in human
mye loproliferati ve disorders. Lancet. 2004Aug 17-;<br/ >365(3815):89 54-1061. Ankur Norman, Mj V, [address] HANK. A
unique clonal JAK2 mutation leading to constitutive< br/>signaling causes polycythaemia vera. Nature. 2004Sep 26;
43 4(2135):1142- 114.
Flora R, Marianne F, Lizbeth , et al. A gain-of-
function mutation of JAK2 in myeloprolifer ative disorders.
N Engl J Med. 2004Sep 26; 35217):1779- 1790. IMMUNOLOGY JAK2 (V617F) Comment 09/12 Result [facility] Mutation Qnt /2018 Comment: Medical Result NEGATIVE
[place]
The JAK2 V617F mutation is not detected in the provided
specimen of this individual. This result does not rule out
the presence of the JAK2 mutation at a level below the
sensi tivity of detection of this assay, or the presence of
other mutations within JAK2 not detected by this assay. IMMUNOLOGY JAK2 (V617F) Comment 09/12 Result [facility] Comment: Medical
[facility] genomic DNA was extracted and subjected to TaqMan
re al-time PCR amplification /detection. Two amplification
products per sample were monitored by real-time PCR using
winifred mers/probes specific to JAK2 wild type (WT) and JAK2
muta nt [id number]. The [employer] Absolute Quantitation software
will compare the patient [...] 1%. IMMUNOLOGY JAK2 (V617F) Comment 09/12 Result [facility] Comment: [facility] Quantitative Real-Time PCR assay detects V617F [...] Bili Direct <0.1 0.0 - 0.3 09/11 [facility] CHEM PANEL Bili Unable to 0.0 - 1.0 09/11 [facility] Indirect [facility] CHEM PANEL A/G Ratio 0.5 0.7 - 1.6 09/11 [facility]2018 [facility] CHEM PANEL ALT 40 0 - 65 09/11 [facility]2018 [facility] CHEM PANEL AST 31 0 - 37 09/[address] [place] [address] CHEM PANEL Alk Phos 144 39 - 136 09/11 [facility]2018 [facility] CHEM PANEL Bili Total 0.8 0.2 - 1.3 09/11 [facility]2018 [facility] CHEM PANEL Total 7.3 6.4 - 8.4 09/11 [facility] Protein [address] [place] [address] CHEM PANEL Albumin Lvl 2.5 3.5 - 5.0 09/11 [facility] CHEM PANEL Globulin 4.8 2.7 - 4.2 09/11 [facility] Culture: 10,000 - 09/10 [facility] Urine 50,000 [facility] CFU/mL [place] [facility] BLOOD BANK Antibody Negative 09/10 [facility] RESULTS Scrn (09/10/18 5:06 PM) [facility] BLOOD BANK ABO/Rh O POS 09/10 [facility] CHEM PANEL Alk Phos 166 39 - 136 09/[address] CHEM PANEL Bili Total 0.8 0.2 - 1.3 09/[address] CHEM PANEL ALT 45 0 - 65 09/[address] CHEM PANEL AST 35 0 - 37 09/[address] CHEM PANEL Total 7.1 6.4 - 8.4 09/10 [facility] Protein [address] CHEM PANEL Albumin Lvl 2.9 3.5 - 5.0 09/[address] CHEM PANEL B/C Ratio 11 6 - 25 09/[address] CHEM PANEL A/G Ratio 0.7 0.7 - 1.6 09/[address] CHEM PANEL Globulin 4.2 2.7 - 4.2 09/[address] HEMATOLOGY Heparin Negative 1 Negative 09/10 Result [facility] Ab(SRIDEVI) (09/10/18 5:06 PM) Comment: This Medical assay detects Center heparin antibodies of IgG isotype. Antibodies of other isotypes have been reported to cause heparin-induc ed thrombocytope davey. Therefore, if there is a strong clinical suspicion of HIT, additional study with a serotonin release assay is recommented. HEMATOLOGY Pat Od Value 0.127 09/10 [facility] HEMATOLOGY Pos CO Value 0.400 09/10 [facility]2018 [facility] HEMATOLOGY INR 1.08 0.85 - 09/10 [facility] 1.17 /2018 [facility] HEMATOLOGY Thrombin 19.1 15.0 - 09/10 [facility] Time 21.2 [facility] HEMATOLOGY D-Dimer 1.22 09/10 [facility] HEMATOLOGY Fibrinogen 548 230 - 510 09/10 [place] Lvl /2018 [facility] HEMATOLOGY PTT 30.3 22.9 - 09/10 [place] 35.8 /2018 [facility] HEMATOLOGY PT 13.8 12.0 - 09/10 [place] 14.7 /2018 [facility] IMMUNOLOGY IgA Lvl 615.0 68.0 - 09/10 [place] 378.0 /2018 [facility] URINE AND UA Glucose 50mg/dl 09/10 [facility] URINE AND UA Turbidity Marked Clear 09/10 [facility] *ABN* [facility] (09/10/18 5:06 PM) [place] URINE AND UA Color Yellow Yellow 09/10 [facility] *NA* [facility] (09/10/18 5:06 PM) [place] URINE AND UA Protein 30 mg/dL Negative 09/10 [facility] mg/dL [facility] URINE AND UA pH 6.0 5.0 - 8.0 09/10 [facility] [address] [place] [address] URINE AND UA Ketones Trace Negative 09/10 [facility] *ABN* [facility] (09/10/18 5:06 PM) [place] URINE AND UA Bili Negative Negative 09/10 [facility] *NA* [facility] (09/10/18 5:06 PM) [place] URINE AND UA Leuk Est Trace Negative 09/10 [facility] *ABN* [facility] (09/10/18 5:06 PM) [place] URINE AND UA <1.0 0.1 - 1.0 09/10 [facility] Urobilinogen /2018 [facility] URINE AND UA Blood Small Negative 09/10 [facility] *ABN* [facility] (09/10/18 5:06 PM) [place] URINE AND UA Nitrite Negative Negative 09/10 [facility] (09/10/18 5:06 PM) /2018 [facility] URINE AND UA Spec Grav 1.012 <=1.030 09/10 [facility] [address] [place] [address] URINE AND UA WBC 19 0 - 5 09/10 [facility] [address] [place] [address] URINE AND UA Sq Epi Few /LPF Few /LPF 09/10 [facility] /[address] [place] [address] URINE AND UA RBC 1 0 - 2 09/10 [facility] STOOL [facility] URINE AND UA Mucus Few /LPF None Seen 09/10 [facility] STOOL /LPF /2018 [facility] HEMATOLOGY Bands 0.0 0.0 - 11.0 09/10 [facility] /2018 [facility] HEMATOLOGY Large Plt Slight 09/10 [facility]2018 [facility] HEMATOLOGY Atypical 0.0 <=0.0 % 09/10 [facility] Lymphs [facility] IMMUNOLOGY Striated 1:320 Neg:<1:40 09/10 Result [facility] Muscle IgG Comment: Medical Performed At: Center [facility] [place] [facility]
[address] [place], [place] [id number]<br/ >Kosta Tucker MD Ph:[phone] IMMUNOLOGY IgA Lvl 592.0 68.0 - 09/10 [facility] 378.0 [facility] HEMATOLOGY Sed Rate 20 0 - 20 09/09 [facility] IMMUNOLOGY C-REACTIVE 5.2 <=2.9 mg/L 09/09 PROTEIN [facility] HEMATOLOGY PTT 32.0 22.9 - 09/08 35.8 /2019 [facility] HEMATOLOGY PT 13.5 12.0 - 09/08 14.7 [facility] HEMATOLOGY INR 1.05 0.85 - 09/08 1.17 /2018 [facility] ELECTROLYTE AGAP 15.8 10.0 - 09/08 S 20.0 [facility] ELECTROLYTE B/C Ratio 16 6 - 25 09/08 S /2018 [facility] ELECTROLYTE Globulin 4.2 2.7 - 4.2 09/08 S [facility] ELECTROLYTE A/G Ratio 0.7 0.7 - 1.6 09/08 S /2018 [facility] ELECTROLYTE Sodium Lvl 147 135 - 145 09/08 S /2018 [facility] ELECTROLYTE Potassium 3.8 3.5 - 5.1 09/08 S Lvl /2018 [facility] ELECTROLYTE Chloride Lvl 107 95 - 109 09/08 S /2018 [facility] ELECTROLYTE BUN 21 7 - 22 09/08 S /2018 [facility] ELECTROLYTE Glucose Lvl 144 70 - 99 09/08 S /2018 [facility] ELECTROLYTE Albumin Lvl 2.9 3.5 - 5.0 09/08 S /2018 [facility] ELECTROLYTE CO2 28 24 - 32 09/08 S [facility] ELECTROLYTE eGFR 40 09/08 Result [facility] S Comment: [facility] eGFR is City calculated using the CKD-EPI [...] AST 137 0 - 37 09/08 S [facility] ELECTROLYTE ALT 67 0 - 65 09/08 S [facility] ELECTROLYTE Creatinine 1.33 0.50 - 09/08 S Lvl 1.40 /2018 [facility] ELECTROLYTE Bili Total 1.3 0.2 - 1.3 09/08 S [facility] ELECTROLYTE Total 7.1 6.4 - 8.4 10 [facility] S Protein [facility] ELECTROLYTE Alk Phos 195 39 - 136 09/08 S [facility] ELECTROLYTE Calcium Lvl 9.3 8.5 - 10.5 09/08 S [facility] HEMATOLOGY Basophils # 0.1 0.0 - 0.2 09/08 [facility] HEMATOLOGY Neutrophils 2.5 1.5 - 8.1 09/08 [facility] # [facility] HEMATOLOGY Eosinophils 0.2 0.0 - 0.5 10 [facility] # /2018 [facility] HEMATOLOGY Monocytes # 0.7 0.0 - 0.8 09/08 [facility] HEMATOLOGY Lymphocytes 3.3 1.0 - 5.5 10 [facility] # /2018 [facility] HEMATOLOGY Monocytes 9.8 2.0 - 12.0 09/08 [facility] HEMATOLOGY Eosinophils 2.5 0.0 - 4.0 09/08 [facility] HEMATOLOGY Basophils 2.0 0.0 - 1.0 09/08 [facility] HEMATOLOGY Lymphocytes 48.8 20.0 - 09/08 40.0 [facility] HEMATOLOGY Segs 36.9 45.0 - 09/08 75.0 [facility] HEMATOLOGY MPV 11.3 7.4 - 10.4 09/08 [facility] HEMATOLOGY MCH 30.3 27.0 - 09/08 31.0 [facility] HEMATOLOGY Platelet 125 133 - 450 09/08 [facility] HEMATOLOGY RDW 13.9 11.5 - 09/08 14. [facility] HEMATOLOGY MCV 92.9 80.0 - 09/08 98.0 [facility] HEMATOLOGY MCHC 32.6 32.0 - 09/08 36.0 [facility] HEMATOLOGY WBC 6.8 3.7 - 10.4 09/08 [facility] HEMATOLOGY RBC 5.13 4.20 - 09/08 5.40 [facility] HEMATOLOGY Hgb 15.5 12.0 - 09/08 16.0 [facility] HEMATOLOGY Hct 47.7 36.0 - 09/08 48.0 [facility] LIPIDS VLDL 24 09/08 [facility] LIPIDS LDL 45 <=99 mg/dL 09/08 (Calculated) [facility] LIPIDS CHD Risk 2.82 3.90 - 09/08 5.80 [facility] LIPIDS HDL 38 >=61 mg/dL 09/08 [facility] LIPIDS Trig 118 <=149 09/08 mg/dL [facility] LIPIDS Chol 107 <=199 09/08 mg/dL [facility] SPECIAL Hgb A1C 12.2 <=5.6 % 09/08 CHEMISTRY [facility] HEMATOLOGY MPV 9.7 7.4 - 10.4 08/19 [facility] HEMATOLOGY Platelet 163 133 - 450 08/19 [facility] HEMATOLOGY RDW 13.7 11.5 - 08/19 [place] 14. [facility] HEMATOLOGY Hgb 17.8 12.0 - 08/19 [place] 16.0 [facility] HEMATOLOGY Hct 52.9 36.0 - 08/19 [place] 48.0 [facility] HEMATOLOGY MCV 92.3 80.0 - 08/19 [place] 98.0 [facility] HEMATOLOGY RBC 5.73 4.20 - 08/19 [facility] 5.40 [facility] HEMATOLOGY WBC 8.5 3.7 - 10.4 08/19 [facility] HEMATOLOGY MCHC 33.6 32.0 - 08/19 [facility] 36.0 [facility] HEMATOLOGY MCH 31.0 27.0 - 08/19 [facility] 31.0 [facility] CARDIAC BNP 98 <=100 08/19 [facility] ENZYMES pg/mL [facility] CHEM PANEL Phosphorus 3.4 2.5 - 4.5 08/19 [facility] CHEM PANEL Magnesium 1.9 1.8 - 2.4 08/19 [facility] l [facility] CHEM PANEL eGFR 62 08/19 Result Comment: [facility] eGFR is Center calculated using the CKD-EPI [...] Calcium Lvl 8.8 8.5 - 10.5 08/19 [facility] CHEM PANEL CO2 23 24 - 32 08/19 [facility]2018 [facility] CHEM PANEL Chloride Lvl 106 95 - 109 08/19 [facility]2018 [facility] CHEM PANEL Potassium 4.6 3.5 - 5.1 08/19 Result [facility] Comment: [facility] Moderately Hemolyzed. CHEM PANEL Creatinine 0.94 0.50 - 08/19 [facility] Lvl 1.40 [facility] CHEM PANEL Sodium Lvl 138 135 - 145 08/19 2018 [facility] CHEM PANEL BUN 13 7 - 22 08/19 [facility]2018 [facility] CHEM PANEL Glucose Lvl 160 70 - 99 08/19 [facility] CHEM PANEL AGAP 13.6 10.0 - 08/19 [place] 20.0 [facility] HEMATOLOGY Eosinophils 0.2 0.0 - 0.5 08/19 [place] # /2019 [facility] HEMATOLOGY Basophils # 0.1 0.0 - 0.2 08/19 [facility] HEMATOLOGY Segs 47.9 45.0 - 08/19 [place] 75.0 2019 [facility] HEMATOLOGY Lymphocytes 40.1 20.0 - 08/19 [place] 40.0 2019 [facility] HEMATOLOGY Lymphocytes 3.9 1.0 - 5.5 08/19 /2018 [facility] HEMATOLOGY Monocytes # 0.9 0.0 - 0.8 08/19 [facility] HEMATOLOGY Monocytes 8.8 2.0 - 12.0 08/19 [facility] HEMATOLOGY Basophils 1.2 0.0 - 1.0 08/19 [facility] HEMATOLOGY Eosinophils 2.0 0.0 - 4.0 08/19 [facility] HEMATOLOGY Neutrophils 4.7 1.5 - 8.1 08/19 [facility] HEMATOLOGY INR 1.09 0.85 - 08/19 [place] 1.17 [facility] HEMATOLOGY PT 13.9 12.0 - 08/19 [place] 14.7 [facility] HEMATOLOGY PTT 31.0 22.9 - 08/19 [place] 35.8 /2019 [facility] HEMATOLOGY MCV 93.0 80.0 - 08/19 [place] 98.0 2019 [facility] HEMATOLOGY MCH 31.1 27.0 - 08/19 [place] 31.0 [facility] HEMATOLOGY RDW 13.7 11.5 - 08/19 [place] 14.5 2019 [facility] HEMATOLOGY MCHC 33.4 32.0 - 08/19 [place] 36.0 2019 [facility] HEMATOLOGY Platelet 77 133 - 450 08/19 [facility] HEMATOLOGY MPV 9.9 7.4 - 10.4 08/19 /2019 [facility] HEMATOLOGY Hct 49.7 36.0 - 08/19 [place] 48.0 2019 [facility] HEMATOLOGY Hgb 16.6 12.0 - 08/19 [place] 16.0 2019 [facility] HEMATOLOGY RBC 5.35 4.20 - 08/19 [facility] [place] 5.40 /2019 [facility] HEMATOLOGY WBC 9.7 3.7 - 10.4 08/[address] PARATHYROID Ca Ion WB 1.02 1.05 - 08/19 [facility] PROFILE 1. [facility] PARATHYROID Ca Norm WB 0.98 1.05 - 08/19 [facility] PROFILE . [facility] URINE AND Occult Bld Negative Negative 08/19 [facility] STOOL Stl (08/19/18 4:40 AM) [facility] Culture: Normal Enteric Era Isolated 08/19 [facility] Stool No Salmonella Or Shigella Isolated [facility] CHEM PANEL Alk Phos 132 39 - 136 08/[address] CHEM PANEL A/G Ratio 0.6 0.7 - 1.6 08/[address] CHEM PANEL ALT 30 0 - 65 08/[address] CHEM PANEL Total 6.9 6.4 - 8.4 08/18 [facility] Protein [facility] CHEM PANEL Albumin Lvl 2.6 3.5 - 5.0 08/[address] CHEM PANEL Globulin 4.3 2.7 - 4.2 08/[address] CHEM PANEL Bili Direct <0.1 0.0 - 0.3 08/[address] CHEM PANEL Bili Total 0.5 0.2 - 1.3 08/[address] CHEM PANEL Bili >0.4 0.0 - 1.0 08/18 [facility] Indirect [facility] CHEM PANEL AST 21 0 - 37 08/[address] CHEM PANEL Calcium Lvl 8.5 8.5 - 10.5 08/[address] CHEM PANEL eGFR 71 08/18 Result [facility] Comment: The Medical eGFR is Center [...] PANEL BUN 13 7 - 22 08/[address] CHEM PANEL Glucose Lvl 162 70 - 99 08/[address] CHEM PANEL CO2 27 24 - 32 08/[address] CHEM PANEL Potassium 3.6 3.5 - 5.1 08/18 [facility]2018 [facility] CHEM PANEL Sodium Lvl 142 135 - 145 08/[address] CHEM PANEL Chloride Lvl 108 95 - 109 08/[address] CHEM PANEL Creatinine 0.83 0.50 - 08/18 [facility] 1.40 [facility] CHEM PANEL AGAP 10.6 10.0 - 08/18 [facility] 20.0 [facility] CHEM PANEL Magnesium 1.8 1.8 - 2.4 08/18 [facility] [address] [place] [address] CHEM PANEL Phosphorus 3.6 2.5 - 4.5 08/[address] HEMATOLOGY Neutrophils 3.9 1.5 - 8.1 08/[address] HEMATOLOGY Eosinophils 2.5 0.0 - 4.0 08/[address] HEMATOLOGY Basophils 1.9 0.0 - 1.0 08/[address] HEMATOLOGY Monocytes # 0.6 0.0 - 0.8 08/[address] HEMATOLOGY Lymphocytes 3.8 1.0 - 5.5 08/[address] HEMATOLOGY Eosinophils 0.2 0.0 - 0.5 08/[address] HEMATOLOGY Basophils # 0.2 0.0 - 0.2 08/[address] HEMATOLOGY Lymphocytes 44.0 20.0 - 08/18 [place] 40.0 [facility] HEMATOLOGY Segs 45.3 45.0 - 08/18 [place] 75.0 [facility] HEMATOLOGY Monocytes 6.3 2.0 - 12.0 08/[address] HEMATOLOGY Hct 49.2 36.0 - 08/18 [facility] [place] 48.0 2019 [facility] HEMATOLOGY Hgb 17.0 12.0 - 08/18 [place] 16.0 2019 [facility] HEMATOLOGY RBC 5.30 4.20 - 08/18 [place] 5.40 2019 [facility] HEMATOLOGY WBC 8.7 3.7 - 10.4 08/18 /2018 [facility] HEMATOLOGY MCV 92.8 80.0 - 08/18 [place] 98.0 [facility] HEMATOLOGY MPV 9.7 7.4 - 10.4 08/18 /2018 [facility] HEMATOLOGY RDW 13.6 11.5 - 08/18 [place] 14.5 [facility] HEMATOLOGY Platelet 161 133 - 450 08/18 /2018 [facility] HEMATOLOGY MCHC 34.6 32.0 - 08/18 [place] 36.0 [facility] HEMATOLOGY MCH 32.1 27.0 - 08/18 [place] 31.0 [facility] PARATHYROID Ca Norm WB 1.05 1.05 - 08/18 [place] PROFILE 1. [facility] PARATHYROID Ca Ion WB 1.06 1.05 - 08/18 [facility] PROFILE 1. [facility] HEMATOLOGY Monocytes # 0.9 0.0 - 0.8 08/17 /2018 [facility] HEMATOLOGY Eosinophils 0.2 0.0 - 0.5 08/17 [facility] /2018 [facility] HEMATOLOGY Lymphocytes 5.1 1.0 - 5.5 08/17 [place] # /2018 [facility] HEMATOLOGY Basophils # 0.1 0.0 - 0.2 08/17 /2018 [facility] HEMATOLOGY Monocytes 7.6 2.0 - 12.0 08/17 /2018 [facility] HEMATOLOGY Segs 44.9 45.0 - 08/17 [place] 75.0 2019 [facility] HEMATOLOGY Lymphocytes 44.2 20.0 - 08/17 [place] 40.0 2019 [facility] HEMATOLOGY Basophils 1.3 0.0 - 1.0 08/17 /2018 [facility] HEMATOLOGY Eosinophils 2.0 0.0 - 4.0 08/17 [facility] /2018 [facility] HEMATOLOGY Neutrophils 5.2 1.5 - 8.1 08/17 [facility] /2019 [facility] ELECTROLYTE AGAP 11.9 10.0 - 08/16 [facility] S 20.0 [facility] ELECTROLYTE eGFR 64 08/16 Result [facility] S Comment: The Medical eGFR is Center [...] Sodium Lvl 142 135 - 145 08/16 [facility] ELECTROLYTE Potassium 3.9 3.5 - 5.1 08/16 [facility] S l [facility] ELECTROLYTE Chloride Lvl 104 95 - 109 08/16 [facility]2018 [facility] ELECTROLYTE CO2 30 24 - 32 08/[address] ELECTROLYTE Calcium Lvl 9.6 8.5 - 10.5 08/[address] ELECTROLYTE BUN 16 7 - 22 08/[address] ELECTROLYTE Glucose Lvl 121 70 - 99 08/[address] ELECTROLYTE Creatinine 0.91 0.50 - 08/16 [facility] Lvl 1.40 [facility] HEMATOLOGY RBC Morph Normal 08/16 [facility] (08/16/18 3:35 PM) [facility] HEMATOLOGY Plt Morph Normal 08/16 [facility] (08/16/18 3:35 PM) [facility] HEMATOLOGY PTT 32.0 22.9 - 08/16 [facility] 35.8 [facility] HEMATOLOGY PT 12.6 12.0 - 08/16 [facility] 14.7 [facility] HEMATOLOGY INR 0.96 0.85 - 08/16 [facility] 1.17 [facility] BEDSIDE Gluc POC 148.0 65 - 110 03/25 [place] <sup>1</sup>I [facility] GLUCOSE Lif nterpretive Medical TESTING Data: Center Upper Reportable Limit: 200 mg/dL. BEDSIDE Comment1 Notify 03/25 NA [facility] GLUCOSE RN/MD /2010 Medical TESTING Center BEDSIDE Comment1 Notify 03/25 NA [facility] GLUCOSE RN/MD /2010 Medical TESTING Center BEDSIDE Gluc POC 140.0 65 - 110 03/25 [place] <sup>2</sup>I [facility] GLUCOSE Lifscn nterpretive Medical TESTING Data: Center Upper Reportable Limit: 200 mg/dL. BEDSIDE Comment1 Notify 03/25 NA [place]ie GLUCOSE RN/MD /2010 Medical TESTING Center BEDSIDE Gluc POC 137.0 65 - 110 03/25 [place] <sup>3</sup>I [facility] GLUCOSE Lifscn nterpretive Medical TESTING Data: Center Upper Reportable Limit: 200 mg/dL. CHEMISTRY Globulin 3.3 2.0 - 4.0 03/25 Normal [facility] CHEMISTRY Total 5.4 6.4 - 8.4 03/25 LOW [facility] CHEMISTRY Albumin Lvl 2.1 3.5 - 5.0 03/25 LOW [facility] CHEMISTRY ALT 131.0 0 - 65 03/25 [facility] CHEMISTRY Alk Phos 360.0 39 - 136 03/25 [facility] CHEMISTRY A/G Ratio 0.6 0.7 - 1.6 03/25 LOW [facility] CHEMISTRY AST 144.0 0 - 37 03/25 [facility] Medical Center CHEMISTRY Bili 0.2 0.0 - [...] CO2 19.0 24 - 32 03/25 LOW [facility] CHEMISTRY Glucose Lvl 104.0 03/25 NA <sup>4</sup>I nterpretive Medical Data: Center Reference Ranges : 0 - 7 days : 41 - 90 mg/dL 7 days - 150 yrs : 70 - 99 mg/dL (fasting), based on the clinical recommendatio ns of the [place] [employer]. CHEMISTRY BUN 21.0 7 - 22 03/25 Normal [facility] CHEMISTRY Creatinine 1.7 0.5 - 1.4 03/25 [place] Lvl [facility] CHEMISTRY AGAP 18.1 10.0 - 03/25 Normal [place] 20.0 [facility] HEMATOLOGY Monocytes # 0.9 0.0 - 0.8 03/25 [facility] HEMATOLOGY Basophils # 0.1 0.0 - 0.2 03/25 Normal [facility] HEMATOLOGY Eosinophils 16.0 0.0 - 4.0 03/25 HI [facility] HEMATOLOGY Monocytes 9.1 2.0 - 12.0 03/25 Normal [facility] HEMATOLOGY Basophils 1.5 0.0 - 1.0 03/25 HI [facility] HEMATOLOGY Segs-Bands # 4.3 1.5 - 8.1 03/25 Normal [facility] HEMATOLOGY Lymphocytes 3.2 1.0 - 5.5 03/25 Normal [place] # /2010 Medical Center HEMATOLOGY Eosinophils 1.6 0.0 - 0.5 03/25 [place] # Medical Center HEMATOLOGY Lymphocytes 31.4 20.0 - 03/25 Normal [place] 40.0 Medical Center HEMATOLOGY Segs 42.0 45.0 - 03/25 LOW [place] 75.0 Medical Center HEMATOLOGY RDW 15.0 11.5 - 03/25 [facility] [place] 14.5 Medical Center HEMATOLOGY MCHC 33.9 [...] Platelet 157.0 133 - 450 03/25 Normal [facility] HEMATOLOGY RBC 4.03 4.20 - 03/25 LOW [place] 5.40 Medical Center HEMATOLOGY WBC 10.1 3.7 - 10.4 03/25 Normal Medical Center CHEMISTRY A/G Ratio 0.7 0.7 - 1.6 03/24 Normal [facility] CHEMISTRY Bili 0.2 0.0 - 1.0 03/24 Normal [place] [facility] CHEMISTRY Globulin 3.2 2.0 - 4.0 03/24 Normal [facility] CHEMISTRY Total 5.6 6.4 - 8.4 03/24 [facility] [place] [facility] CHEMISTRY Albumin Lvl 2.4 3.5 - 5.0 03/24 [facility] Medical Center CHEMISTRY Bili Direct 0.2 0.0 - 0.3 03/24 Normal [facility] CHEMISTRY AST 345.0 0 - 37 03/24 [facility] Medical Center CHEMISTRY Alk Phos 469.0 39 - 136 03/24 [facility] CHEMISTRY Bili Total 0.4 0.2 - 1.3 03/24 [facility] CHEMISTRY ALT 192.0 0 - 65 03/24 [facility] CHEMISTRY Magnesium 1.6 1.8 - 2.4 03/24 [facility] [place] [facility] CHEMISTRY AGAP 15.6 10.0 - 03/24 [facility] [place] 20.0 Medical Center CHEMISTRY CO2 21.0 24 - 32 03/24 [facility] Medical Center CHEMISTRY Potassium 3.6 3.5 - 5.1 03/24 [facility] l Medical Center CHEMISTRY Chloride Lvl 109.0 95 - 109 03/24 [facility] Center CHEMISTRY Calcium Lvl 7.7 8.5 - 10.5 03/24 [facility] Medical Center CHEMISTRY Sodium Lvl 142.0 135 - 145 03/24 [facility] Center CHEMISTRY BUN 23.0 7 - 22 03/24 [facility] CHEMISTRY Creatinine 1.7 0.5 - 1.4 03/24 [facility] Lvl [facility] CHEMISTRY Glucose Lvl 119.0 03/24 NA <sup>5</sup>I nterpretive Medical Data: Center Reference Ranges : 0 - 7 days : 41 - 90 mg/dL 7 days - 150 yrs : 70 - 99 mg/dL (fasting), based on the clinical recommendatio ns of the [place] [employer]. HEMATOLOGY PT 14.8 12.0 - 03/24 [facility] 14.7 [facility] HEMATOLOGY INR 1.16 0.85 - 03/24 Normal <sup>7</sup>I [facility] 1.17 nterpretive Medical Data: Center RECOMMENDED RANGES FOR PROTIME INR: 2.0-3.0 for most medical and surgical thromboemboli c states. 2.5-3.5 for artificial heart valves and recurrent embolism. INR SHOULD BE USED ONLY FOR PATIENTS ON STABLE ANTICOAGULANT THERAPY. HEMATOLOGY PTT 34.9 22.9 - 03/24 Normal <sup>8</sup>I [facility] 35.8 nterpretive Medical Data: Heparin Center Therapeutic Range: 57 - 92 Seconds HEMATOLOGY Basophils # 0.1 0.0 - 0.2 03/24 Normal [facility] HEMATOLOGY Segs-Bands # 4.1 1.5 - 8.1 03/24 Normal [facility] HEMATOLOGY Lymphocytes 2.8 1.0 - 5.5 03/24 Normal [facility] /2010 [facility] HEMATOLOGY Monocytes # 0.8 0.0 - 0.8 03/24 Normal [facility] HEMATOLOGY Eosinophils 1.8 0.0 - 0.5 03/24 [facility] # [facility] HEMATOLOGY Lymphocytes 28.5 20.0 - 03/24 [facility] [place] 40.0 [facility] HEMATOLOGY Monocytes 8.6 2.0 - 12.0 03/24 Normal [facility] HEMATOLOGY Eosinophils 19.0 0.0 - 4.0 03/24 [facility] HEMATOLOGY Basophils 1.3 0.0 - 1.0 03/24 [facility] HEMATOLOGY Segs 42.6 45.0 - 03/24 LOW [place] 75.0 [facility] HEMATOLOGY WBC 9.7 3.7 - 10.4 03/24 Normal [facility] HEMATOLOGY RBC 3.67 4.20 - 03/24 LOW [place] 5.40 /2010 Medical Center HEMATOLOGY MCHC 34.9 32.0 - 03/24 Normal [place] 36.0 Medical Center HEMATOLOGY RDW 15.1 11.5 - 03/24 [facility] [place] 14.5 /2010 Medical Center HEMATOLOGY Platelet 169.0 133 - 450 03/24 Normal [facility] HEMATOLOGY MCV 90.5 81.0 - 03/24 Normal [place] 99.0 Medical Center HEMATOLOGY MCH 31.6 27.0 - 03/24 [facility] [place] 31.0 /2010 [facility] HEMATOLOGY MPV 9.5 7.4 - 10.4 03/24 Normal [facility] HEMATOLOGY Hgb 11.6 12.0 - 03/24 [facility] [place] 16.0 [facility] HEMATOLOGY Hct 33.2 36.0 - 03/24 [facility] [place] 48.0 Medical Center IMMUNOLOGY Hep Bs Ag Negative >Negative 03/24 NA *NA* /2010 Medical (03/24/2011 05:08:00) ?? Center CHEMISTRY Amylase Lvl 36.0 25 - 115 03/23 Normal [facility] CHEMISTRY Lipase Lvl 242.0 73 - 393 03/23 Normal [facility] CHEMISTRY Glucose Lvl 97.0 03/23 NA <sup>6</sup>I nterpretive Medical Data: Center Reference Ranges : 0 - 7 days : 41 - 90 mg/dL 7 days - 150 yrs : 70 - 99 mg/dL (fasting), based on the clinical recommendatio ns of the [place] [employer]. CHEMISTRY BUN 22.0 7 - 22 03/23 Normal [facility] CHEMISTRY Creatinine 1.5 0.5 - 1.4 03/23 [facility] [place] Lvl Medical Center CHEMISTRY CO2 20.0 24 - 32 03/23 LOW [facility] CHEMISTRY Sodium Lvl 144.0 135 - 145 03/23 Normal [facility] CHEMISTRY Calcium Lvl 7.8 8.5 - 10.5 03/23 LOW [facility] CHEMISTRY Chloride Lvl 108.0 95 - 109 03/23 Normal [facility] CHEMISTRY Total 4.7 6.4 - 8.4 03/23 LOW [facility] Center CHEMISTRY AGAP 19.2 10.0 - [...] # 2.7 1.5 - 8.1 03/23 Normal [facility] HEMATOLOGY Monocytes # 0.9 0.0 - 0.8 03/23 [facility] HEMATOLOGY Plt Morph Normal 03/23 Normal [facility] (03/23/2011 05:24:00) ?? [facility] HEMATOLOGY Eosinophils 15.0 0.0 - 4.0 03/23 [facility] HEMATOLOGY Atypical 0.0 <<=0.0 03/23 Normal [facility] Lymphs [facility] HEMATOLOGY Bands 1.0 0.0 - 11.0 03/23 Normal [facility] HEMATOLOGY Basophils 1.0 0.0 - 1.0 03/23 Normal [facility] HEMATOLOGY Eosinophils 1.0 0.0 - 0.5 03/23 HI [facility] # [facility] HEMATOLOGY Lymphocytes 31.0 20.0 - 03/23 Normal [place] 40.0 [facility] HEMATOLOGY Monocytes 13.0 2.0 - 12.0 03/23 [facility] HEMATOLOGY Segs 39.0 45.0 - 03/23 LOW [place] 75.0 [facility] HEMATOLOGY Basophils # 0.1 0.0 - 0.2 03/23 Normal [facility] IMMUNOLOGY Prealbumin 10.0 18.0 - 03/23 LOW [facility] 45.0 [facility] URINALYSIS UA ?? 0.1 - 1.0 03/22 NA [facility] Urobilinogen [facility] URINALYSIS UA Hyal Cast 3.0 0 - 2 03/22 [facility] URINALYSIS UA Amorph Occasional /HPF >None Seen 03/22 [facility] *NA* Medical (03/22/2011 17:20:00) ?? Center URINALYSIS UA Mucus Few /LPF >None Seen 03/22 [facility] *NA* Medical (03/22/2011 17:20:00) ?? Center URINALYSIS UA Sq Epi Few /LPF >Few 03/22 [facility] *NA* Medical (03/22/2011 17:20:00) ?? Center URINALYSIS UA RBC <1.0 0 - 2 03/22 Normal [facility] URINALYSIS UA Nitrite Negative >Negative 03/22 Normal [facility] (03/22/2011 17:20:00) ?? Medical Center URINALYSIS UA Leuk Est Negative >Negative 03/22 Normal [facility] (03/22/2011 17:20:00) ?? Medical Center URINALYSIS UA Protein 200 mg/dL >Negative [facility] ?? [facility] URINALYSIS UA Ketones 10 mg/dL >[facility] Center URINALYSIS UA Bili Negative >Negative [facility]2011 17:20:00[facility] ?? Center URINALYSIS UA Blood Moderate >Negative 03/22 [facility] Medical (03/22/2011 17:20:00) ?? Center URINALYSIS UA Glucose Negative mg/dL >Negative 03[facility]2011 17:20:00[facility] ?? Center URINALYSIS UA Spec Grav 1.016 <<=1.030 03/22 Normal Medical Center URINALYSIS UA pH 5.5 5.0 - 8.0 03/22 Normal Medical [facility] URINALYSIS UA Color Yellow >Yellow 03/22 [facility]2011 17:20:00[facility] ?? Center URINALYSIS UA Turbidity Slight >Clear [facility]20:00[facility] ?? Center CHEMISTRY Bili 0.2 0.0 - 1.0 03/22 Normal [facility] Center CHEMISTRY Bili Direct 0.1 0.0 - 0.3 03/22 Normal [facility] IMMUNOLOGY Hep A IgM Negative >Negative 03/22 [facility]/22[facility]2011 09:40:00[facility] ?? Center IMMUNOLOGY Hep B Core Negative >Negative 03/22 NA [facility] IgM *NA* Medical (03/22/2011 09:40:00) ?? Center IMMUNOLOGY Hep C Ab Negative >Negative 03/22 [facility] (03/22/2011 09:40:00[facility] ?? Center IMMUNOLOGY Hep Bs Ag See Note 9 >Negative 03/22 Normal <sup>9</sup>R [facility] (03/22/2011 09:40:00) ?? esult Medical Comment: [facility] Center Talked to Nyasia Mcdaniels Nurse will recollect in the morning 03/23/2011 16:39 RG CHEMISTRY T4 Free 1.67 0.76 - 03/22 [facility] 1.46 Medical Center CHEMISTRY TSH 0.044 0.360 - 03/22 LOW [facility] 3.740 /2010 Medical Center BEDSIDE Comment1 Sliding 03/15 NA [facility] GLUCOSE Scale Medical TESTING Center BEDSIDE Gluc POC 152.0 65 - 110 03/15 [place] <sup>1</sup>I [facility] GLUCOSE Lifscn nterpretive Medical TESTING Data: Center Upper Reportable Limit: 200 mg/dL. BEDSIDE Comment1 Notify 03/15 NA [facility] GLUCOSE RN/MD Medical TESTING Center BEDSIDE Gluc POC 116.0 65 - 110 03/15 [place] <sup>2</sup>I [facility] GLUCOSE Lifscn nterpretive Medical TESTING Data: Center Upper Reportable Limit: 200 mg/dL. CHEMISTRY AGAP 18.5 10.0 - 03/15 Normal [place] 20.0 [facility] CHEMISTRY Potassium 3.5 3.5 - 5.1 03/15 Normal [facility] Lvl [facility] CHEMISTRY CO2 21.0 24 - 32 03/15 LOW [facility] CHEMISTRY Sodium Lvl 147.0 135 - 145 03/15 [facility] CHEMISTRY Creatinine 1.4 0.5 - 1.4 03/15 Normal [facility] Lvl Medical Center CHEMISTRY Chloride Lvl 111.0 95 - 109 03/15 [facility] [place] [facility] CHEMISTRY Calcium Lvl 8.1 8.5 - 10.5 03/15 LOW [facility] CHEMISTRY Glucose Lvl 97.0 03/15 NA <sup>12</sup> Interpretive Medical Data: Center Reference Ranges : 0 - 7 days : 41 - 90 mg/dL 7 days - 150 yrs : 70 - 99 mg/dL (fasting), based on the clinical recommendatio ns of the [place] [employer]. CHEMISTRY BUN 21.0 7 - 22 15 Normal /2010 [facility] CHEMISTRY Magnesium 1.7 1.8 - 2.4 [...] Monocytes # 1.1 0.0 - 0.8 03/15 [facility] /2010 Medical Center HEMATOLOGY Basophils # 0.1 0.0 - 0.2 03/15 Normal Medical [facility] HEMATOLOGY Lymphocytes 1.5 1.0 - 5.5 03/15 Normal [place] # /2010 Medical Center HEMATOLOGY Segs-Bands # 5.8 1.5 - 8.1 03/15 Normal [facility] HEMATOLOGY Basophils 1.3 0.0 - 1.0 03/15 [place] /2010 [facility] Center HEMATOLOGY Eosinophils 6.3 0.0 - 4.0 03/15 [facility] /2010 Medical Center HEMATOLOGY MCH 31.6 27.0 - 03/15 [facility] [place] 31.0 /2010 Medical Center HEMATOLOGY RBC 3.56 4.20 - 10 [facility] [place] 5.40 /2010 Medical Center HEMATOLOGY MCV 90.7 81.0 - 03/15 [facility] [place] 99.0 /2010 Medical Center HEMATOLOGY Hct 32.3 36.0 - 03/15 [facility] [place] 48.0 /2010 Medical Center HEMATOLOGY Hgb 11.3 12.0 - 10 [facility] [place] 16.0 /2010 Medical Center HEMATOLOGY WBC 9.1 3.7 - 10.4 03/15 Normal [facility] HEMATOLOGY MPV 10.1 7.4 - 10.4 10 Normal [facility] HEMATOLOGY Platelet 154.0 133 - 450 03/15 Normal [facility] HEMATOLOGY RDW 14.7 11.5 - 10 [facility] [place] 14.5 /2010 Medical Center HEMATOLOGY MCHC 34.8 32.0 - 10 [facility] [place] 36.0 /2010 Medical Center BEDSIDE Comment1 Notify 03/15 [facility] GLUCOSE RN/MD /2010 Medical TESTING Center BEDSIDE Gluc POC 126.0 65 - 110 03/15 [place] <sup>3</sup>I [facility] GLUCOSE Lifscn /2010 nterpretive Medical TESTING Data: Center Upper Reportable Limit: 200 mg/dL. BEDSIDE Comment2 Sliding 03/14 NA [facility] GLUCOSE Scale /2010 Medical TESTING Center BEDSIDE Comment2 Sliding 03/14 NA [facility] GLUCOSE Scale /2010 Medical TESTING Center CHEMISTRY T4 Free 2.0 0.76 - 03/14 HI [facility] 1.46 /2010 Medical Center CHEMISTRY TSH 0.042 0.360 - 03/14 LOW [facility] 3.740 /2010 [facility] CHEMISTRY Total CK 31.0 12 - 191 03/14 Normal [facility] CHEMISTRY Lactic Acid 1.6 0.5 - 2.2 03/14 Normal [facility] Lvl /2010 [facility] HEMATOLOGY INR 1.15 0.85 - 03/14 Normal <sup>53</sup> [facility] 1.17 Interpretive Medical Data: Center RECOMMENDED RANGES FOR PROTIME INR: 2.0-3.0 for most medical and surgical thromboemboli c states. 2.5-3.5 for artificial heart valves and recurrent embolism. INR SHOULD BE USED ONLY FOR PATIENTS ON STABLE ANTICOAGULANT THERAPY. HEMATOLOGY PT 14.7 12.0 - 03/14 Normal [facility] 14.7 /2010 [facility] HEMATOLOGY PTT 30.3 22.9 - 03/14 Normal <sup>54</sup> [facility] 35.8 /2010 Interpretive Medical Data: Heparin Center [...] 3.8 3.5 - 5.1 03/14 Normal <sup>5</sup>R [facility] esult Medical Comment: Center Collection date/time has been modified to: 01:50:00. Previous collection date/time: 01:50:00. CHEMISTRY BUN 20.0 7 - 22 03/14 Normal <sup>10</sup> Result Medical Comment: Center Collection date/time has been modified to: 01:50:00. Previous collection date/time: 01:50:00. CHEMISTRY Creatinine 1.4 0.5 - 1.4 03/14 Normal <sup>9</sup>R [facility] esult Medical Comment: Center Collection date/time has [...] on the clinical recommendatio ns of the [place] [employer].< br/><sup>15</ sup>Interpret kimberly Data: Reference Ranges : 0 - 7 days : 41 - 90 mg/dL 7 days - 150 yrs : 70 - 99 mg/dL (fasting), based on the clinical recommendatio ns of the [place] [employer]. CHEMISTRY Magnesium 1.2 1.8 - 2.4 03/14 LOW <sup>22</sup> [facility] Result Medical Comment: Center Collection date/time has [...] Lymphocytes 22.2 20.0 - 03/14 Normal <sup>40</sup> [facility] 40.0 Result Medical Comment: Center Collection date/time [...] 0.7 0.0 - 0.5 03/14 [place] <sup>47</sup> [facility] # /2010 Result Medical Comment: Center Collection date/time has been modified to: 01:50:00. Previous collection date/time: 01:50:00. HEMATOLOGY Lymphocytes 2.6 1.0 - 5.5 03/14 Normal <sup>45</sup> [facility] # /2010 Result Medical Comment: Center Collection date/time has been modified to: 01:50:00. Previous collection date/time: 01:50:00. HEMATOLOGY Large Plt Slight 52 >None Seen 03/14 ABN <sup>52</sup> [facility] *ABN* Result Medical (03/14/2011 01:50:00) ?? Comment: Center Collection date/time has been modified to: 01:50:00. Previous collection date/time: 01:50:00. HEMATOLOGY Dian Cell Slight 51 >None Seen 03/14 ABN <sup>51</sup> [facility] *ABN* /2010 Result Medical (03/14/2011 01:50:00) ?? Comment: Center Collection date/time has been modified to: 01:50:00. Previous collection date/time: 01:50:00. HEMATOLOGY Anisocyte 1+ 49 >None Seen 03/14 ABN <sup>49</sup> [facility] *ABN* /2010 Result Medical (03/14/2011 01:50:00) ?? Comment: Center Collection date/time has been modified to: 01:50:00. Previous collection date/time: 01:50:00. HEMATOLOGY Polychrom Slight 50 >None Seen 03/14 Normal <sup>50</sup> [facility] (03/14/2011 01:50:00) ?? Result Medical Comment: Center Collection date/time has been modified to: 01:50:00. Previous collection date/time: 01:50:00. HEMATOLOGY Hgb 13.3 12.0 - 10 Normal <sup>31</sup> [facility] 16.0 /2010 Result Medical Comment: Center Collection date/time has been modified to: 01:50:00. Previous collection date/time: 01:50:00. HEMATOLOGY WBC 11.8 3.7 - 10.4 03/14 [place] <sup>29</sup> Result Medical Comment: Center Collection date/time has been modified to: 01:50:00. Previous collection date/time: 01:50:00. HEMATOLOGY RBC 4.18 4.20 - 03/14 LOW <sup>30</sup> [facility] 5.40 /2010 Result Medical Comment: Center Collection date/time has been modified to: 01:50:00. Previous collection date/time: 01:50:00. HEMATOLOGY MCV 90.6 81.0 - 03/14 Normal <sup>33</sup> [facility] 99.0 /2010 Result Medical Comment: Center Collection date/time has been modified to: 01:50:00. Previous collection date/time: 01:50:00. HEMATOLOGY MCH 31.8 27.0 - 03/14 HI <sup>34</sup> [place] 31.0 /2010 Result Medical Comment: Center Collection date/time has been modified to: 01:50:00. Previous collection date/time: 01:50:00. HEMATOLOGY Hct 37.9 36.0 - 03/14 Normal <sup>32</sup> [facility] 48.0 /2010 Result Medical Comment: Center Collection date/time has been modified to: 01:50:00. Previous collection date/time: 01:50:00. HEMATOLOGY MPV 10.0 7.4 - 10.4 03/14 Normal <sup>38</sup> [place] Result Medical Comment: Center Collection date/time has been modified to: 01:50:00. Previous collection date/time: 01:50:00. HEMATOLOGY RDW 13.5 11.5 - 03/14 Normal <sup>36</sup> [facility] 14.5 Result Medical Comment: Center Collection date/time has been modified to: 01:50:00. Previous collection date/time: 01:50:00. HEMATOLOGY Platelet 199.0 133 - 450 03/14 Normal <sup>37</sup> Result Medical Comment: Center Collection date/time has been modified to: 01:50:00. Previous collection date/time: 01:50:00. HEMATOLOGY MCHC 35.1 32.0 - 03/14 Normal <sup>35</sup> [facility] 36.0 Result Medical Comment: Center Collection date/time has been modified to: 01:50:00. Previous collection date/time: 01:50:00. CHEMISTRY AST 27.0 0 - 37 03/13 Normal [facility] CHEMISTRY Globulin 3.2 2.0 - 4.0 03/13 Normal [facility] CHEMISTRY Albumin Lvl 2.9 3.5 - 5.0 03/13 LOW [facility] CHEMISTRY ALT 32.0 0 - 65 03/13 Normal [facility] CHEMISTRY Total 6.1 6.4 - 8.4 03/13 LOW [facility] Protein [facility] CHEMISTRY A/G Ratio 0.9 0.7 - 1.6 03/13 Normal [facility] CHEMISTRY Bili 0.3 0.0 - 1.0 03/13 Normal [facility] Indirect [facility] CHEMISTRY Bili Total 0.4 0.2 - 1.3 03/13 Normal [facility] CHEMISTRY Bili Direct 0.1 0.0 - 0.3 03/13 Normal [facility] CHEMISTRY Alk Phos 103.0 39 - 136 03/13 Normal [facility] BEDSIDE Gluc POC 197.0 65 - 110 03/07 [place] <sup>1</sup>I [facility] GLUCOSE Lifscn nterpretive Medical TESTING Data: Center Upper Reportable Limit: 200 mg/dL. BEDSIDE Comment1 Notify 10/07 NA [facility] GLUCOSE RN/MD Medical TESTING Center BEDSIDE Comment2 Sliding 03/07 NA [facility] GLUCOSE Scale Medical TESTING Center BEDSIDE Gluc POC 112.0 65 - 110 03/07 [place] <sup>2</sup>I [facility] GLUCOSE Lifsc[facility] nterpretive Medical TESTING Data: Center Upper Reportable Limit: 200 mg/dL. BEDSIDE Comment1 Notify 03/07 NA [facility] GLUCOSE RN/MD Medical TESTING Center BEDSIDE Comment2 Sliding 03/07 NA [facility] GLUCOSE Scale Medical TESTING Center BEDSIDE Comment1 Notify 03/07 NA [facility] GLUCOSE RN/MD /2010 Medical TESTING Center BEDSIDE Gluc POC 180.0 65 - 110 03/07 [place] <sup>3</sup>I [facility] GLUCOSE Lifsc nterpretive Medical TESTING Data: Center Upper Reportable Limit: 200 mg/dL. BEDSIDE Comment2 Sliding 03/06 NA [facility] GLUCOSE Medical TESTING Center CHEMISTRY eGFR >60.0 [...] Lvl 144.0 135 - 145 03/05 Normal [facility] CHEMISTRY Potassium 3.8 3.5 - 5.1 03/05 Normal [facility] Medical Center CHEMISTRY Calcium Lvl 8.4 8.5 - 10.5 03/05 LOW [facility] Center CHEMISTRY AGAP 15.8 10.0 - 03/05 Normal 20.0 Medical Center CHEMISTRY CO2 25.0 24 - 32 03/05 Normal Medical Center CHEMISTRY BUN 16.0 7 - 22 03/05 Normal Medical Center CHEMISTRY Creatinine 0.9 0.5 - 1.4 03/05 Normal [facility] Medical Center CHEMISTRY Glucose Lvl 77.0 03/05 NA <sup>5</sup>I nterpretive Medical Data: Center Reference Ranges : 0 - 7 days : 41 - 90 mg/dL 7 days - 150 yrs : 70 - 99 mg/dL (fasting), based on the clinical recommendatio ns of the [place] [employer]. HEMATOLOGY Segs 45.6 45.0 - 10/05 Normal [place] 75.0 /2010 [facility] HEMATOLOGY Monocytes 10.4 2.0 - 12.0 10/ Normal [place] /2010 [facility] HEMATOLOGY Eosinophils 3.5 0.0 - 4.0 10/05 Normal /2010 [facility] HEMATOLOGY Lymphocytes 38.5 20.0 - 10/05 Normal [place] 40.0 /2010 [facility] Center HEMATOLOGY Eosinophils 0.4 0.0 - 0.5 10/05 Normal [place] # /2010 [facility] [place] HEMATOLOGY Basophils # 0.2 0.0 - 0.2 10/ Normal /2010 [facility] HEMATOLOGY Basophils 2.0 0.0 - 1.0 10/05 [place] /2010 [facility] HEMATOLOGY Segs-Bands # 5.8 1.5 - 8.1 10/ Normal /2010 [facility] HEMATOLOGY Lymphocytes 4.9 1.0 - 5.5 10/05 Normal [place] # /2010 [facility] HEMATOLOGY Monocytes # 1.3 0.0 - 0.8 10/ [place] /2010 [facility] HEMATOLOGY Hgb 9.9 12.0 - 10/05 LOW [place] 16.0 /2010 [facility] HEMATOLOGY MCV 92.6 81.0 - 10/05 Normal [place] 99.0 /2010 [facility] HEMATOLOGY RBC 3.08 4.20 - 10/05 LOW [place] 5.40 /2010 Medical Center HEMATOLOGY WBC 12.7 3.7 - 10.4 10/ [facility] HEMATOLOGY MCH 32.0 27.0 - 10/05 [facility] [place] 31.0 /2010 Medical Center HEMATOLOGY Hct 28.5 36.0 - 10/05 LOW [place] 48.0 /2010 [facility] [place] HEMATOLOGY MCHC 34.6 32.0 - 10/05 Normal [place] 36.0 /2010 Medical Center HEMATOLOGY Platelet 221.0 133 - 450 10/ Normal /2010 [facility] HEMATOLOGY RDW 16.5 11.5 - 10/05 [facility] [place] 14.5 /2010 [facility] [place] HEMATOLOGY MPV 9.1 7.4 - 10.4 10/ Normal /2010 [facility] HEMATOLOGY Platelet 270.0 133 - 450 10/03 Normal Medical Center HEMATOLOGY RDW 16.4 11.5 - 03/03 [facility] [place] 14.5 Medical Center HEMATOLOGY MCHC 33.6 32.0 - 03/03 Normal [place] 36.0 Medical Center HEMATOLOGY MCH 31.8 27.0 - 03/03 [facility] [place] 31.0 Medical Center HEMATOLOGY WBC 12.4 3.7 - 10.4 03/03 [place] [facility] HEMATOLOGY MPV 9.4 7.4 - 10.4 03/03 Normal Medical Center HEMATOLOGY MCV 94.6 81.0 - 10 [facility] 99.0 Medical Center HEMATOLOGY Hct 30.8 36.0 - 03/03 LOW [place] 48.0 [facility] [place] HEMATOLOGY Hgb 10.4 12.0 - 03/03 [facility] [place] 16.0 [facility] [place] HEMATOLOGY RBC 3.25 4.20 - 03/03 [facility] [place] 5.40 Medical Center HEMATOLOGY RDW 16.0 11.5 - 03/02 [facility] [place] 14. Medical Center HEMATOLOGY MPV 9.1 7.4 - 10.4 03/02 Normal Medical Center HEMATOLOGY Platelet 283.0 133 - 450 03/02 Normal Medical Center HEMATOLOGY RBC 3.23 4.20 - 03/02 LOW [place] 5.40 Medical Center HEMATOLOGY MCV 94.5 81.0 - 03/02 [facility] 99.0 Medical Center HEMATOLOGY Hct 30.5 36.0 - 03/02 [facility] 48.0 Medical Center HEMATOLOGY Hgb 10.3 12.0 - 03/02 [facility] [place] 16.0 Medical Center HEMATOLOGY MCHC 33.6 32.0 - 03/02 [facility] [place] 36.0 Medical Center HEMATOLOGY WBC 12.7 3.7 - 10.4 03/02 [facility] Medical Center HEMATOLOGY MCH 31.8 27.0 - 03/02 [facility] [place] 31.0 [facility] URINALYSIS UA ?? 0.1 - 1.0 03/01 [facility] Urobilinogen [facility] URINALYSIS UA Turbidity Clear >Clear 03/01 [facility] (03/01/2011 15:38:00) ?? [facility] URINALYSIS UA Spec Grav 1.009 <<=1.030 03/01 [facility] /2011 Medical Center URINALYSIS UA Color Yellow >Yellow [facility]01 [facility] 15:38:00[facility] ?? Center URINALYSIS UA pH 5.5 5.0 - 8.0 03/01 Normal Medical Center URINALYSIS UA Ketones Negative mg/dL >Negative 03/01 [facility]2011 15:38:00[facility] ?? Center URINALYSIS UA Glucose Negative mg/dL >Negative 03/01 [facility] (03/01/2011 15:38:00) ?? Center URINALYSIS UA Bili Negative >Negative 03/01 NA [facility] Medical (03/01/2011 15:38:00) ?? Center URINALYSIS UA Blood Negative >Negative 03/01 Normal [facility] (03/01/2011 15:38:00) ?? Medical Center URINALYSIS UA WBC <1.0 0 - 5 03/01 Normal Medical Center URINALYSIS UA Nitrite Negative >Negative 03/01 Normal [facility] (03/01/2011 15:38:00) ? Medical Center URINALYSIS UA Leuk Est Negative >Negative 03/01 Normal [facility] (03/01/2011 15:38:00) ? Medical Center URINALYSIS UA Mucus Few /LPF >None Seen 03/01 NA [facility] Medical (03/01/2011 15:38:00) ?? Center URINALYSIS UA Sq Epi Moderate /LPF >Few 03/01 ABN [facility] Medical (03/01/2011 15:38:00) ?? Center URINALYSIS UA Hyal Cast 1.0 0 - 2 03/01 Normal Medical Center URINALYSIS UA Protein 10 mg/dL >Negative 03/01 [facility] (03/01/2011 15:38:00) ?? Center Microbiolog Culture: 03/01 [facility] y Medical Center HEMATOLOGY Lymphocytes 5.7 1.0 [...] Globulin 2.8 2.0 - 4.0 02/27 Normal [facility] CHEMISTRY B/C Ratio 14.0 6 - 25 02/27 Normal [facility] CHEMISTRY AGAP 13.8 10.0 - 02/27 Normal [place] 20.0 Medical Center CHEMISTRY A/G Ratio 0.8 0.7 - 1.6 02/27 Normal [facility] CHEMISTRY Total 5.0 6.4 - 8.4 02/27 LOW [facility] CHEMISTRY Calcium Lvl 8.4 8.5 - 10.5 02/27 LOW [facility] CHEMISTRY ALT 24.0 0 - 65 02/27 Normal [facility] CHEMISTRY Albumin Lvl 2.2 3.5 - 5.0 02/27 LOW [facility] CHEMISTRY Bili Total 0.3 0.2 - 1.3 02/27 Normal [facility] CHEMISTRY AST 21.0 0 - 37 02/27 Normal Medical Center CHEMISTRY Alk Phos 98.0 39 - 136 02/27 Normal [facility] CHEMISTRY CO2 28.0 24 - 32 02/27 Normal Medical Center CHEMISTRY BUN 10.0 7 - 22 02/27 Normal [facility] CHEMISTRY Potassium 3.8 3.5 - 5.1 02/27 Normal [place] Lvl Medical Center CHEMISTRY Sodium Lvl 143.0 135 - 145 02/27 Normal [facility] CHEMISTRY Creatinine 0.7 0.5 - 1.4 02/27 Normal [facility] Lvl [facility] CHEMISTRY Glucose Lvl 119.0 02/27 NA <sup>6</sup>I nterpretive Medical Data: Center Reference Ranges : 0 - 7 days : 41 - 90 mg/dL 7 days - 150 yrs : 70 - 99 mg/dL (fasting), based on the clinical recommendatio ns of the [place] [employer]. CHEMISTRY Chloride Lvl 105.0 95 - 109 02/27 Normal [facility] HEMATOLOGY Monocytes # 0.9 0.0 - 0.8 02/27 HI [facility] HEMATOLOGY Eosinophils 0.3 0.0 - 0.5 02/27 Normal [facility] /2010 [facility] HEMATOLOGY Lymphocytes 3.3 1.0 - 5.5 02/27 Normal [facility] /2010 [facility] HEMATOLOGY Basophils # 0.1 0.0 - 0.2 02/27 Normal [facility] HEMATOLOGY Basophils 1.2 0.0 - 1.0 02/27 HI [facility] HEMATOLOGY Segs-Bands # 6.0 1.5 - 8.1 02/27 Normal [facility] HEMATOLOGY Monocytes 8.3 2.0 - 12.0 02/27 Normal [facility] HEMATOLOGY Eosinophils 3.1 0.0 - 4.0 02/27 Normal [facility] HEMATOLOGY Segs 56.6 45.0 - 02/27 Normal [facility] 75.0 [facility] HEMATOLOGY Lymphocytes 30.8 20.0 - 02/27 Normal [facility] 40.0 [facility] BEDSIDE Gluc POC 207.0 65 - 110 02/26 [place] <sup>1</sup>I [facility] GLUCOSE [facility] nterpretive Medical TESTING Data: Center Upper Reportable Limit: 200 mg/dL. BEDSIDE Comment1 Notify 02/26 NA [facility] GLUCOSE RN/MD /2010 Medical TESTING Center BEDSIDE Comment1 Notify 02/26 NA [facility] GLUCOSE RN/MD /2010 Medical TESTING Center BEDSIDE Gluc POC 155.0 65 - 110 02/26 [place] <sup>2</sup>I [facility] GLUCOSE [facility] nterpretive Medical TESTING Data: Center Upper Reportable Limit: 200 mg/dL. BEDSIDE Gluc POC 140.0 65 - 110 02/26 [place] <sup>3</sup>I [facility] GLUCOSE [facility] nterpretive Medical TESTING Data: Center Upper Reportable Limit: 200 mg/dL. CHEMISTRY AGAP 15.6 10.0 - 02/26 Normal [facility] 20.0 Medical Center CHEMISTRY CO2 25.0 24 - 32 02/26 Normal Medical Center CHEMISTRY Calcium Lvl 7.9 8.5 - 10.5 02/26 LOW Medical [facility] CHEMISTRY Sodium Lvl 142.0 135 - 145 02/26 Normal Medical Center CHEMISTRY Potassium 3.6 3.5 - 5.1 02/26 Normal [facility] Medical Center CHEMISTRY Creatinine 0.5 0.5 - 1.4 02/26 Normal [facility] Medical Center CHEMISTRY Chloride Lvl 105.0 95 - 109 02/26 Normal Medical Center CHEMISTRY BUN 9.0 - 02/26 Normal [facility] CHEMISTRY Glucose Lvl 120.0 02/26 NA <sup>4</sup>I nterpretive Medical Data: Center Reference Ranges : 0 - 7 days : 41 - 90 mg/dL 7 days - 150 yrs : 70 - 99 mg/dL (fasting), based on the clinical recommendatio ns of the [place] [employer]. HEMATOLOGY Hgb 10.5 12.0 - 02/26 [facility] 16.0 [facility] HEMATOLOGY Hct 31.2 36.0 - 02/26 [facility] 48.0 Medical Center BEDSIDE Comment1 Notify 02/26 NA [facility] GLUCOSE RN/ Medical TESTING Center CHEMISTRY Magnesium 1.9 1.8 - 2.4 02/24 Normal [facility] Medical Center CHEMISTRY Calcium Lvl 7.9 8.5 - 10.5 02/24 LOW Medical Center CHEMISTRY Chloride Lvl 106.0 95 - 109 02/24 Normal Medical Center CHEMISTRY CO2 24.0 - 32 02/24 Normal Medical Center CHEMISTRY Sodium Lvl 142.0 135 - 145 02/24 Normal Medical [facility] CHEMISTRY Creatinine 0.6 0.5 - 1.4 02/24 Normal [facility] Medical Center CHEMISTRY BUN 12.0 - 02/24 Normal Medical Center CHEMISTRY Glucose Lvl 89.0 02/24 NA <sup>5</sup>I nterpretive Medical Data: Center Reference Ranges : 0 - 7 days : 41 - 90 mg/dL 7 days - 150 yrs : 70 - 99 mg/dL (fasting), based on the clinical recommendatio ns of the [place] [employer]. CHEMISTRY Potassium 3.7 3.5 - 5.1 02/24 Normal [facility] CHEMISTRY AGAP 15.7 10.0 - 02/24 Normal [place] 20.0 [facility] HEMATOLOGY Hct 30.7 36.0 - 02/24 LOW [place] 48.0 [facility] HEMATOLOGY Hgb 10.3 12.0 - 02/24 [facility] [place] 16.0 [facility] HEMATOLOGY Sed Rate 105.0 0 - 20 02/24 [facility] CHEMISTRY Magnesium 1.7 1.8 - 2.4 02/21 LOW [facility] CHEMISTRY Ca Norm mgdL 4.64 4.65 - 02/21 [facility] 5. [facility] CHEMISTRY Ca Ion 1.1 1.16 - 02/21 LOW [place] 1. [facility] CHEMISTRY Ca Norm 1.16 1.16 - 02/21 Normal [place] 1. [facility] CHEMISTRY Ca Ion mgdL 4.4 4.65 - 02/21 LOW [facility] 5. [facility] CHEMISTRY AGAP 16.9 10.0 - 02/21 Normal [facility] 20.0 [facility] CHEMISTRY BUN 6.0 7 - 22 02/21 [facility] CHEMISTRY Creatinine 0.4 0.5 - 1.4 02/21 LOW [facility] CHEMISTRY Glucose Lvl 154.0 02/21 NA <sup>6</sup>I nterpretive Medical Data: Center Reference Ranges : 0 - 7 days : 41 - 90 mg/dL 7 days - 150 yrs : 70 - 99 mg/dL (fasting), based on the clinical recommendatio ns of the [place] [employer]. CHEMISTRY Potassium 4.9 3.5 - 5.1 02/21 Normal [facility] Center CHEMISTRY Sodium Lvl 138.0 135 - 145 02/21 Normal Medical Center CHEMISTRY Calcium Lvl 7.7 8.5 - 10.5 02/21 LOW Medical [facility] CHEMISTRY Chloride Lvl 107.0 95 - 109 02/21 Normal Medical Center CHEMISTRY CO2 19.0 24 - 32 02/21 LOW [facility] CHEMISTRY Phosphorus 3.7 2.5 - 4.5 [...] Center HEMATOLOGY RDW 16.2 11.5 - 02/21 [facility] [place] 14.5 /2010 Medical Center HEMATOLOGY MPV 7.8 7.4 - 10.4 02/21 Normal Medical [facility] HEMATOLOGY Hct 32.4 36.0 - 02/21 LOW [place] 48.0 /2010 Medical Center HEMATOLOGY MCV 96.0 81.0 - 02/21 Normal [place] 99.0 /2010 [facility] HEMATOLOGY MCH 32.7 27.0 - 02/21 [facility] [place] 31.0 /2010 Medical Center HEMATOLOGY RBC 3.38 4.20 - 02/21 LOW [place] 5.40 /2010 [facility] Center HEMATOLOGY Hgb 11.0 12.0 - 02/21 LOW [place] 16.0 /2010 [facility] HEMATOLOGY WBC 9.0 3.7 - 10.4 02/21 Normal [place] /2010 Medical Center CHEMISTRY Magnesium 3.1 1.8 - 2.4 02/20 [facility] [place] Lvl /2010 Medical Center CHEMISTRY Phosphorus [...] Center HEMATOLOGY MCH 32.2 27.0 - 02/20 [facility] [place] 31.0 /2010 Medical Center HEMATOLOGY MCHC 33.7 32.0 - 02/20 Normal [place] 36.0 /2010 [facility] Center HEMATOLOGY RDW 16.5 11.5 - 02/20 [facility] [place] 14.5 /2010 Medical Center HEMATOLOGY RBC [...] HEMATOLOGY Eosinophils 6.4 0.0 - 4.0 02/20 [facility] Medical Center HEMATOLOGY Basophils 0.4 0.0 - 1.0 02/20 Normal [facility] [place] HEMATOLOGY Segs-Bands # 4.4 1.5 - 8.1 02/20 Normal [facility] HEMATOLOGY Lymphocytes 1.4 1.0 - 5.5 02/20 Normal [facility] Center CHEMISTRY Ca Norm 1.02 1.16 - 02/19 LOW [place] 1. Medical Center CHEMISTRY Ca Norm mgdL 4.08 4.65 - 02/19 LOW [place] 5. Medical Center CHEMISTRY Ca Ion mgdL 4.12 4.65 - 02/19 LOW [place] 5. Medical Center CHEMISTRY Ca Ion 1.03 1.16 - 02/19 [facility] 06.30 Medical Center CHEMISTRY AST 66.0 0 - 37 02/19 [facility] CHEMISTRY Bili Total 0.8 0.2 - 1.3 02/19 Normal [facility] CHEMISTRY Albumin Lvl 2.3 3.5 - 5.0 02/19 LOW [facility] CHEMISTRY Total 4.8 6.4 - 8.4 02/19 [facility] CHEMISTRY ALT 67.0 0 - 65 02/19 [facility] CHEMISTRY Globulin 2.5 2.0 - 4.0 02/19 Normal [facility] CHEMISTRY A/G Ratio 0.9 0.7 - 1.6 02/19 Normal [facility] CHEMISTRY Alk Phos 155.0 39 - 136 02/19 [facility] Medical Center CHEMISTRY B/C Ratio 20.0 6 - 25 02/19 Normal [facility] HEMATOLOGY PTT 29.4 22.9 - 02/19 Normal <sup>8</sup>I [facility] 35.8 nterpretive Medical Data: Heparin Center Therapeutic Range: 57 - 92 Seconds HEMATOLOGY PT 13.9 12.0 - 02/19 Normal [facility] 14.7 Medical Center HEMATOLOGY INR 1.07 0.85 - 02/19 Normal <sup>7</sup>I [facility] 1.17 nterpretive Medical Data: Center RECOMMENDED RANGES FOR PROTIME INR: 2.0-3.0 for most medical and surgical thromboemboli c states. 2.5-3.5 for artificial heart valves and recurrent embolism. INR SHOULD BE USED ONLY FOR PATIENTS ON STABLE ANTICOAGULANT THERAPY. HEMATOLOGY RBC 3.4 4.20 - 02/19 LOW [place] 5.40 /2010 [facility] HEMATOLOGY MCH 32.2 27.0 - 02/19 [facility] [place] 31.0 /2010 [facility] HEMATOLOGY MCV 95.7 81.0 - 02/19 Normal [place] 99.0 /2010 [facility] HEMATOLOGY MCHC 33.6 32.0 - 02/19 [facility] [place] 36.0 /2010 [facility] HEMATOLOGY RDW 16.7 11.5 - 02/19 [facility] [place] 14.5 /2010 [facility] HEMATOLOGY MPV 7.8 7.4 - 10.4 02/19 Normal [place] [facility] HEMATOLOGY Platelet 173.0 133 - 450 02/19 Normal [place] /2010 [facility] HEMATOLOGY WBC 7.4 3.7 - 10.4 02/19 Normal /2010 [facility] HEMATOLOGY Monocytes 8.7 2.0 - 12.0 02/19 Normal [place] /2010 [facility] HEMATOLOGY Lymphocytes 15.6 20.0 - 02/19 LOW [place] 40.0 /2010 [facility] HEMATOLOGY Lymphocytes 1.1 1.0 - 5.5 02/19 Normal [facility] # /2010 [facility] HEMATOLOGY Monocytes # 0.6 0.0 - 0.8 02/19 Normal /2010 [facility] HEMATOLOGY Eosinophils 5.3 0.0 - 4.0 02/19 [facility] [place] /2010 [facility] HEMATOLOGY Segs-Bands # 5.1 1.5 - 8.1 02/19 Normal [place] [facility] HEMATOLOGY Basophils 0.6 0.0 - 1.0 02/19 [facility] HEMATOLOGY Segs 69.8 45.0 - 02/19 [facility] [place] 75.0 [facility] HEMATOLOGY Eosinophils 0.4 0.0 - 0.5 02/19 Normal [facility] # [facility] HEMATOLOGY Basophils # 0.0 0.0 - 0.2 02/19 [facility] CHEMISTRY Lactic Acid 1.1 0.5 - 2.2 02/19 Normal [facility] Lvl [facility] Microbiolog Culture: 02/19 [facility] y [facility]istant [facility] r Screen Microbiolog Culture: 02/19 [facility] y MRSA [facility] Microbiolog Culture: 02/19 [facility] y Anaerobic Medical Center Microbiolog Culture: 02/19 [facility] y Aspirate/Bod Medical y Center Fluid/Tissue CHEMISTRY POC A Glu 109.0 65 - 110 02/19 Normal [facility] CHEMISTRY POC A LA 0.6 0.5 - 2.2 02/19 Normal [facility] CHEMISTRY POC A Ca Ion 1.08 1.16 - 02/19 LOW [place] 1.30 Medical Center CHEMISTRY POC A Na 140.0 135 - 145 02/19 Normal [facility] CHEMISTRY POC A Hct 29.0 36.0 - 02/19 LOW [place] 48.0 [facility] CHEMISTRY POC A K 3.3 3.5 - 5.1 02/19 LOW [facility] CHEMISTRY POC A O2 Sat 100.0 95.0 - 02/19 Normal [facility] 100.0 [facility] CHEMISTRY POC A HCO3 22.0 22 - 26 02/19 Normal [facility] CHEMISTRY POC A BE -4.0 -2-2 - 2 02/19 LOW [facility] CHEMISTRY POC A Source ART 02/19 NA [facility] CHEMISTRY POC A pH 7.33 7.35 - 02/19 LOW [place] 7.45 [facility] CHEMISTRY POC A PCO2 41.0 35 - 45 02/19 Normal [facility] CHEMISTRY POC A Temp 37.0 02/19 NA [facility] CHEMISTRY POC A PO2 433.0 80 - 100 02/19 [facility] Microbiolog Culture: 02/19 [place] y Aspirate/Bod Medical y Center Fluid/Tissue Microbiolog Culture: CSF 02/19 y w/Gram Stain [facility] BODY FLUIDS Protein CSF 39.0 15 - 45 02/19 Normal [facility] BODY FLUIDS Glucose CSF 70.0 45 - 80 02/19 Normal [facility] BODY FLUIDS WBC CSF 1.0 0 - 5 02/19 Normal [facility] BODY FLUIDS Color CSF Light Red >Colorless 02/19 ABN [place] *ABN* /2010 Medical (02/19/2011 11:00:00) ?? Center BODY FLUIDS Clarity CSF Slight >Clear 02/19 ABN [place] *ABN* Medical (02/19/2011 11:00:00) ?? Center BODY FLUIDS Supernat CSF Colorless >Colorless 02/19 Normal [facility] (02/19/2011 11:00:00) ?? [facility] BODY FLUIDS RBC CSF 2885.0 0 - 0 02/19 [facility] BODY FLUIDS Tube Num CSF xxxxxxx 02/19 Normal [facility] (02/19/2011 11:00:00) ?? [facility] CHEMISTRY POC A Glu 107.0 65 - 110 02/19 Normal [facility] CHEMISTRY POC A K 3.2 3.5 - 5.1 02/19 LOW [facility] CHEMISTRY POC A Ca Ion 1.1 1.16 - 02/19 LOW [facility] 1. [facility] CHEMISTRY POC A LA 0.7 0.5 - 2.2 02/19 Normal [facility] CHEMISTRY POC A Source ART 02/19 NA [facility] CHEMISTRY POC A pH 7.35 7.35 - 02/19 [facility] 7.45 [facility] CHEMISTRY POC A Temp 37.0 02/19 NA [facility] CHEMISTRY POC A BE -3.0 -2-2 - 2 02/19 LOW [facility] CHEMISTRY POC A PCO2 41.0 35 - 45 02/19 Normal [facility] CHEMISTRY POC A PO2 404.0 80 - 100 02/19 [facility] CHEMISTRY POC A HCO3 23.0 22 - 26 02/19 Normal [facility] CHEMISTRY POC A Na 140.0 135 - 145 02/19 Normal [facility] CHEMISTRY POC A O2 Sat 100.0 95.0 - 02/19 [facility] 100.0 [facility] CHEMISTRY POC A Hct 29.0 36.0 - 02/19 [facility] [place] 48.0 [facility] BLOOD BANK ABO/Rh O NEG 02/19 Unknown [facility] RESULTS [facility] BLOOD BANK Antibody Negative 02/19 Normal [facility] RESULTS Scrn (02/19/2011 10:33:00) ?? [facility] CHEMISTRY POC A K 3.7 3.5 - 5.1 02/19 Normal [facility] CHEMISTRY POC A Ca Ion 1.1 1.16 - 02/19 LOW [place] 1. Medical Center CHEMISTRY POC A Glu 118.0 65 - 110 02/19 [facility] CHEMISTRY POC A LA 1.0 0.5 - 2.2 02/19 Normal [facility] CHEMISTRY POC A Na 136.0 135 - 145 02/19 Normal [facility] CHEMISTRY POC A pH 7.43 7.35 - 02/19 Normal [facility] 7.45 Medical Center CHEMISTRY POC A PO2 381.0 80 - 100 02/19 [facility] CHEMISTRY POC A BE -1.0 -2-2 - 2 02/19 Normal [facility] CHEMISTRY POC A HCO3 23.0 22 - 26 02/19 Normal [facility] CHEMISTRY POC A O2 Sat 100.0 95.0 - 02/19 Normal [facility] 100.0 Medical Center CHEMISTRY POC A PCO2 34.0 35 - 45 02/19 LOW [facility] CHEMISTRY POC A Temp 37.0 02/19 NA Medical Center CHEMISTRY POC A Source ART 02/19 NA [facility] CHEMISTRY POC A Hct 34.0 36.0 - 02/19 LOW [facility] 48.0 Medical Center CHEMISTRY AGAP 12.0 10.0 - 02/19 Normal 20.0 Medical Center CHEMISTRY Sodium Lvl 141.0 135 - 145 02/19 Normal [facility] CHEMISTRY BUN 12.0 7 - 22 02/19 Normal [facility] CHEMISTRY Creatinine 0.6 0.5 - 1.4 02/19 Normal [facility] CHEMISTRY CO2 24.0 24 - 32 02/19 Normal [facility] CHEMISTRY Calcium Lvl 7.9 8.5 - 10.5 02/19 LOW [facility] CHEMISTRY Potassium 4.0 3.5 - 5.1 02/19 Normal [facility] CHEMISTRY Chloride Lvl 109.0 95 - 109 02/19 Normal [facility] CHEMISTRY Glucose Lvl 99.0 02/19 NA <sup>8</sup>I nterpretive Medical Data: Center Reference Ranges : 0 - 7 days : 41 - 90 mg/dL 7 days - 150 yrs : 70 - 99 mg/dL (fasting), based on the clinical recommendatio ns of the [place] [employer]. HEMATOLOGY Lymphocytes 2.4 1.0 - 5.5 02/19 Normal [facility] [place] # /2010 [facility] Center HEMATOLOGY Monocytes # 0.7 0.0 - 0.8 02/19 Normal /2010 Medical Center HEMATOLOGY Basophils # 0.0 0.0 - 0.2 02/19 Normal /2010 [facility] HEMATOLOGY Eosinophils 0.6 0.0 - 0.5 02/19 HI [place] # /2010 Medical Center HEMATOLOGY Segs-Bands # 2.4 1.5 - 8.1 02/19 Normal [facility] HEMATOLOGY Monocytes 10.9 2.0 - 12.0 02/19 Normal /2010 [facility] Center HEMATOLOGY Basophils 0.8 0.0 - 1.0 02/19 Normal /2010 [facility] HEMATOLOGY Eosinophils 9.4 0.0 - 4.0 02/19 HI [facility] [place] HEMATOLOGY Lymphocytes 39.3 20.0 - 02/19 Normal [place] 40.0 [facility] HEMATOLOGY Segs 39.6 45.0 - 02/19 LOW [place] 75.0 /2010 [facility] [place] HEMATOLOGY MPV 8.2 7.4 - 10.4 02/19 Normal [facility] HEMATOLOGY Platelet 159.0 133 - 450 02/19 Normal [facility] HEMATOLOGY MCH 32.9 27.0 - 02/19 [facility] [place] 31.0 Medical Center HEMATOLOGY MCV 94.8 81.0 - 02/19 Normal [place] 99.0 /2010 [facility] [place] HEMATOLOGY MCHC 34.7 32.0 - 02/19 [facility] [place] 36.0 /2010 [facility] HEMATOLOGY RDW 16.4 11.5 - 02/19 [facility] [place] 14.5 /2010 [facility] HEMATOLOGY Hgb 10.7 12.0 - 02/19 [facility] [place] 16.0 [facility] HEMATOLOGY RBC 3.26 4.20 - 02/19 [facility] [place] 5.40 /2010 Medical Center HEMATOLOGY Hct 30.9 36.0 - 02/19 [facility] [place] 48.0 Medical Center HEMATOLOGY WBC 6.2 3.7 - 10.4 02/19 Normal [facility] [place] HEMATOLOGY INR 1.0 0.85 - 02/19 Normal [...] PTT 30.3 22.9 - 02/19 Normal <sup>12</sup> [facility] 35.8 /2010 Interpretive Medical Data: Heparin Center Therapeutic Range: 57 - 92 Seconds BEDSIDE Gluc POC 142.0 65 - 110 02/19 HI <sup>1</sup>I [facility] GLUCOSE [facility] nterpretive Medical TESTING Data: Center Upper Reportable Limit: 200 mg/dL. BEDSIDE Comment1 Notify 02/19 NA [facility] GLUCOSE RN/ /2010 Medical TESTING Center BEDSIDE Gluc POC 153.0 65 - 110 02/19 [facility]sup[facility]sup[facility] Center Upper Reportable Limit: 200 mg/dL. BEDSIDE Comment1 Notify 02/19 NA [place] GLUCOSE RN/ /2010 Medical TESTING Center BEDSIDE Gluc POC 149.0 65 - 110 02/19 [facility]sup[facility]sup[facility] Data: Center Upper Reportable Limit: 200 mg/dL. BEDSIDE Comment1 Notify 02/18 NA [facility] GLUCOSE RN/ /2010 Medical TESTING Center HEMATOLOGY MCV 94.3 81.0 - 02/18 Normal [facility] 99.0 /2010 [facility] HEMATOLOGY Hct 33.1 36.0 - 02/18 LOW [place] 48.0 /2010 [facility] HEMATOLOGY RDW 16.6 11.5 - 02/18 [facility] [place] [facility] 14.5 /2010 Medical Center HEMATOLOGY MCH 32.8 27.0 - 02/18 [facility] [place] 31.0 /2010 Medical Center HEMATOLOGY MCHC 34.7 32.0 - 02/18 Normal [place] 36.0 /2010 [facility] HEMATOLOGY MPV 7.9 7.4 - 10.4 [...] Total 5.8 6.4 - 8.4 02/13 LOW [facility] Protein [facility] CHEMISTRY B/C Ratio 43.0 6 - 25 02/13 [facility] CHEMISTRY A/G Ratio 0.9 0.7 - 1.6 02/13 Normal [facility] CHEMISTRY ALT 52.0 0 - 65 02/13 Normal [facility] CHEMISTRY Alk Phos 183.0 39 - 136 02/13 [facility] CHEMISTRY eGFR >60.0 02/13 NA <sup>6</sup[facility] Medical Comment: Center Expected eGFR for >20 yr. age group: >=60 ml/min/1.73 sq m The eGFR calculation is not valid in or for persons < 18 years of age. From National Kidney Disease Education Program (NKDEP) CHEMISTRY AGAP 16.9 10.0 - 02/13 Normal [facility] 20.0 [facility] CHEMISTRY Calcium Lvl 8.5 8.5 - 10.5 02/13 Normal [facility] CHEMISTRY Bili Total 0.6 0.2 - 1.3 02/13 Normal [facility] CHEMISTRY AST 49.0 0 - 37 02/13 [facility] CHEMISTRY Chloride Lvl 97.0 95 - 109 02/13 Normal [facility] CHEMISTRY Potassium 4.9 3.5 - 5.1 02/13 Normal <sup>5</sup>R [facility] esult Medical Comment: Center Specimen Moderately Hemolyzed. CHEMISTRY Creatinine 0.4 0.5 - 1.4 02/13 [facility] CHEMISTRY Sodium Lvl 134.0 135 - 145 02/13 [facility] CHEMISTRY Glucose Lvl 109.0 02/13 NA <sup>9</sup>I nterpretive Medical Data: Center Reference Ranges : 0 - 7 days : 41 - 90 mg/dL 7 days - 150 yrs : 70 - 99 mg/dL (fasting), based on the clinical recommendatio ns of the [place] [employer]. CHEMISTRY BUN 17.0 7 - 22 02/13 Normal [facility] CHEMISTRY CO2 25.0 24 - 32 [...] on the clinical recommendatio ns of the [place] [employer]. CHEMISTRY BUN 19.0 7 - 22 02/12 Normal [facility] CHEMISTRY Creatinine 0.7 0.5 - 1.4 02/12 Normal [facility] Center CHEMISTRY Sodium Lvl 135.0 135 - 145 02/12 Normal [facility] CHEMISTRY Chloride Lvl 97.0 95 - 109 02/12 Normal [facility] CHEMISTRY Potassium 3.6 3.5 - 5.1 02/12 Normal [facility] Center CHEMISTRY CO2 23.0 24 - 32 02/12 LOW [facility] [place] HEMATOLOGY Monocytes # 1.0 0.0 - 0.8 02/12 HI [facility] HEMATOLOGY Basophils # 0.1 0.0 - 0.2 02/12 Normal [facility] HEMATOLOGY Eosinophils 0.2 0.0 - 0.5 02/12 Normal [facility] HEMATOLOGY Lymphocytes 4.9 1.0 - 5.5 02/12 Normal [facility] HEMATOLOGY Basophils 0.7 0.0 - 1.0 02/12 Normal [facility] HEMATOLOGY Segs-Bands # 12.2 1.5 - 8.1 02/12 [facility] HEMATOLOGY Monocytes 5.5 2.0 - 12.0 02/12 Normal [facility] HEMATOLOGY Eosinophils 1.1 0.0 - 4.0 02/12 Normal [facility] HEMATOLOGY Segs 66.2 45.0 - 02/12 Normal [place] 75.0 Medical Center HEMATOLOGY Lymphocytes 26.5 20.0 - 09 Normal [place] 40.0 Medical Center CHEMISTRY Magnesium 1.8 1.8 - 2.4 02/11 Normal [facility] Center CHEMISTRY AST 57.0 0 - 37 09/13 HI [facility] CHEMISTRY Total 6.8 6.4 - 8.4 02/11 Normal [facility] CHEMISTRY Albumin Lvl 3.2 3.5 - 5.0 02/11 LOW [facility] CHEMISTRY Globulin 3.6 2.0 - 4.0 02/11 Normal [facility] CHEMISTRY A/G Ratio 0.9 0.7 - 1.6 02/11 Normal [facility] CHEMISTRY ALT 59.0 0 - 65 02/11 Normal [facility] CHEMISTRY Alk Phos 258.0 39 - 136 02/11 [facility] CHEMISTRY Bili Total 0.7 0.2 - 1.3 02/11 Normal [facility] CHEMISTRY B/C Ratio 45.0 6 - 25 02/11 [facility] HEMATOLOGY Anisocyte 1+ >None Seen 02/11 ABN [facility] *ABN* /2010 Medical (02/11/2011 14:00:00) ?? Center BEDSIDE Comment2 Sliding 02/11 [facility] GLUCOSE Scale Medical TESTING Center STOOL TESTS Fecal None Seen 4 02/11 Normal <sup>4</sup>I [facility] Leukocyte (02/11/2011 00:59:00) ?? nterpretive Medical Data: A Value Center of None Seen, Rare, or Few is Normal. BEDSIDE Comment2 Sliding 02/11 [facility] GLUCOSE [facility] TESTING Center CHEMISTRY eGFR 48.0 02/10 NA <sup>7</sup>R esult Medical Comment: Center Expected eGFR for >20 yr. age group: >=60 ml/min/1.73 sq m The eGFR calculation is not valid in or for persons < 18 years of age. From National Kid[employer] Disease Education Program (NKDEP) CHEMISTRY Globulin 3.0 2.0 - 4.0 02/10 Normal [facility] CHEMISTRY A/G Ratio 1.0 0.7 - 1.6 02/10 Normal [facility] CHEMISTRY B/C Ratio 23.0 6 - 25 02/10 Normal [facility] CHEMISTRY AST 31.0 0 - 37 02/10 Normal [facility] CHEMISTRY Albumin Lvl 3.1 3.5 - 5.0 02/10 LOW [facility] CHEMISTRY ALT 64.0 0 - 65 02/10 Normal [facility] CHEMISTRY Total 6.1 6.4 - 8.4 02/10 LOW [facility] Center CHEMISTRY Bili Total 0.5 0.2 - 1.3 02/10 Normal [facility] CHEMISTRY Alk Phos 235.0 39 - 136 02/10 [facility] HEMATOLOGY Polychrom Slight >None Seen 02/08 Normal [facility] (02/08/2011 05:19:00) ?? Medical Center HEMATOLOGY Hypochrom Slight >None Seen 02/08 Normal [facility] (02/08/2011 05:19:00) ?? Medical Center HEMATOLOGY Anisocyte 1+ >None Seen 02/08 ABN [facility] *ABN* /2010 Medical (02/08/2011 05:19:00) ?? Center HEMATOLOGY Plt Morph Normal 02/08 Normal [facility] (02/08/2011 05:19:00) ?? Medical Center BEDSIDE Comment2 Sliding 02/07 NA [facility] GLUCOSE Medical TESTING Center HEMATOLOGY Bands 0.0 0.0 - 11.0 02/06 Normal [facility] BLOOD BANK Antibody Negative 02/05 Normal [facility] RESULTS Scrn (02/05/2011 14:12:00) ?? [facility] BLOOD BANK ABO/Rh O NEG 02/05 Unknown [facility] RESULTS [facility] CHEMISTRY Total CK 64.0 12 - 191 02/04 Normal [facility] CHEMISTRY Troponin-I 0.03 0.00 - 02/04 Normal [facility] 0.40 Medical Center CHEMISTRY Total CK 71.0 12 - 191 02/03 Normal [facility] CHEMISTRY Troponin-I 0.05 0.00 - 02/03 Normal [facility] 0.40 Medical Center Microbiolog Culture: 02/02 [facility] y Urine [facility] Center URINALYSIS UA ?? 0.1 - 1.0 02/02 NA [facility] Urobilinogen [facility] URINALYSIS UA Sq Epi None Seen 02/02 NA Medical Center URINALYSIS UA Leuk Est Negative >Negative 02/02 Normal [facility] (02/02/2011 17:21:00) ?? Medical Center URINALYSIS UA RBC <1.0 0 - 2 02/02 Normal [facility] URINALYSIS UA Bacteria Occasional /HPF >None Seen 02/02 NA [facility] *NA* Medical (02/02/2011 17:21:00) ?? Center URINALYSIS UA Nitrite Negative >Negative 02/02 Normal [facility] (02/02/2011 17:21:00) ?? Medical Center URINALYSIS UA Ketones Negative mg/dL >Negative [facility]2011 17:21:00) ?? Center URINALYSIS UA Bili Negative >Negative 02/02 [facility] Medical (02/02/2011 17:21:00) ?? Center URINALYSIS UA Blood Negative >Negative 02/02 Normal [facility] (02/02/2011 17:21:00) ?? Medical Center URINALYSIS UA Protein Negative mg/dL >Negative 02/02 [facility] (02/02/2011 17:21:00) ?? Medical Center URINALYSIS UA Glucose Negative mg/dL >Negative 02/02 [facility] (02/02/2011 17:21:00) ?? Center URINALYSIS UA Color Light Yellow >Yellow 02/02 [facility] (02/02/2011 17:21:00) ?? Center URINALYSIS UA Turbidity Clear >Clear 02/02 Normal [facility] (02/02/2011 17:21:00) ?? Medical Center URINALYSIS UA Spec Grav 1.004 <<=1.030 02/02 Normal [facility] URINALYSIS UA pH 7.0 5.0 - 8.0 02/02 Normal [facility] CHEMISTRY T4 Free 0.98 0.76 - 02/01 Normal [facility] 1.46 /2010 [facility] CHEMISTRY TSH 0.711 0.360 - 02/01 Normal [facility] 3.740 [facility] IMMUNOLOGY Prealbumin 19.4 18.0 - 02/01 Normal [facility] 45.0 Medical Center BEDSIDE Comment1 Notify 01/31 NA [facility] GLUCOSE RN/MD /2010 Medical TESTING Center BEDSIDE Gluc POC 109.0 65 - 110 01/31 Normal <sup>2</sup>I [facility] GLUCOSE [facility] nterpretive Medical TESTING Data: Center Upper Reportable Limit: 200 mg/dL. CHEMISTRY Phosphorus 2.9 2.5 - 4.5 01/31 Normal [facility] CHEMISTRY CO2 24.0 24 - 32 01/31 Normal [facility] CHEMISTRY Calcium Lvl 7.7 8.5 - 10.5 01/31 LOW [facility] CHEMISTRY Glucose Lvl 100.0 01/31 NA <sup>5</sup>I nterpretive Medical Data: Center Reference Ranges : 0 - 7 days : 41 - 90 mg/dL 7 days - 150 yrs : 70 - 99 mg/dL (fasting), based on the clinical recommendatio ns of the [place] [employer]. CHEMISTRY Sodium Lvl 138.0 135 - 145 01/31 Normal [facility] CHEMISTRY Potassium 3.9 3.5 - 5.1 01/31 Normal [facility] CHEMISTRY BUN 17.0 7 - 22 01/31 Normal [facility] CHEMISTRY Creatinine 0.7 0.5 - 1.4 01/31 Normal [facility] CHEMISTRY Chloride Lvl 100.0 95 - 109 01/31 Normal [facility] CHEMISTRY AGAP 17.9 10.0 - 01/31 Normal [facility] 20.0 [facility] CHEMISTRY Magnesium 1.9 1.8 - 2.4 01/31 Normal [facility] CHEMISTRY Ca Norm 1.13 1.16 - 01/31 LOW [facility] 1. [facility] CHEMISTRY Ca Ion 1.09 1.16 - 01/31 [facility] 1. [facility] CHEMISTRY Ca Norm mgdL 4.52 4.65 - 01/31 [facility] 5. [facility] CHEMISTRY Ca Ion mgdL 4.36 4.65 - 01/31 [facility] 5. Medical Center HEMATOLOGY Large Plt Slight >None Seen 01/31 [facility] *ABN* /2010 Medical (01/31/2011 03:36:00) ?? Center HEMATOLOGY Monocytes # 1.4 0.0 - 0.8 01/31 [facility] Medical Center HEMATOLOGY Myelocytes 3.0 <<=0.0 01/31 [facility] Medical Center HEMATOLOGY Segs-Bands # 18.6 1.5 - 8.1 01/31 [facility] [place] [facility] /2011 Medical Center HEMATOLOGY Lymphocytes 1.6 1.0 - 5.5 01/31 Normal [place] # /2010 Medical Center HEMATOLOGY Metamyelocyt 2.0 0.0 - 1.0 01/31 [facility] [place] [facility] es /2010 Medical Center HEMATOLOGY Lymphocytes 7.0 20.0 - 01/31 LOW [place] 40.0 /2010 Medical Center HEMATOLOGY Monocytes 6.0 2.0 - 12.0 01/31 Normal [place] /2010 Medical Center HEMATOLOGY Segs 79.0 45.0 - 01/31 [facility] [place] 75.0 /2010 Medical Center HEMATOLOGY Bands 2.0 0.0 - 11.0 01/31 Normal [place] [facility] HEMATOLOGY Hypochrom Slight >None Seen 01/31 Normal [facility] (01/31/2011 03:36:00) ?? [facility] HEMATOLOGY Polychrom Slight >None Seen 01/31 [facility] (01/31/2011 03:36:00) ?? [facility] HEMATOLOGY Rouleaux Present >None Seen 01/31 [facility] *ABN* /2010 Medical (01/31/2011 03:36:00) ?? Center HEMATOLOGY Atypical 0.0 <<=0.0 01/31 Normal [facility] Lymphs /2010 Medical Center HEMATOLOGY Promyelocyte 1.0 <<=0.0 01/31 [facility] [place] [facility] s /2010 Medical Center HEMATOLOGY RDW 15.3 11.5 - 01/31 [facility] [place] 14.5 /2010 [facility] HEMATOLOGY MPV 10.1 7.4 - 10.4 01/31 Normal [place] [facility] HEMATOLOGY Platelet 166.0 133 - 450 [...] HEMATOLOGY WBC 23.0 3.7 - 10.4 01/31 [facility] [place] [facility] HEMATOLOGY RBC 3.93 4.20 - 01/31 LOW [place] 5.40 /2010 Medical Center HEMATOLOGY Hgb 12.2 12.0 - 01/31 Normal [facility] 16.0 Medical Center BEDSIDE Gluc POC 188.0 65 - 110 01/31 [place] <sup>3</sup>I [facility] GLUCOSE [facility] nterpretive Medical TESTING Data: Center Upper Reportable Limit: 200 mg/dL. BEDSIDE Comment1 Notify 01/31 NA [facility] GLUCOSE RN/MD Medical TESTING Center BEDSIDE Gluc POC 233.0 65 - 110 01/31 [place] <sup>4</sup>I [facility] GLUCOSE [facility] nterpretive Medical TESTING Data: Center Upper Reportable Limit: 200 mg/dL. BEDSIDE Comment1 Notify 01/30 NA [facility] GLUCOSE RN/MD Medical TESTING Center CHEMISTRY Albumin Lvl 2.7 3.5 - 5.0 01/29 LOW [facility] CHEMISTRY Phosphorus 3.7 2.5 - 4.5 01/29 Normal [facility] CHEMISTRY Ca Ion mgdL 4.2 4.65 - 01/29 LOW [facility] 5. Medical Center CHEMISTRY Ca Norm mgdL 4.24 4.65 - 01/29 LOW [facility] 5. Medical Center CHEMISTRY Ca Ion 1.05 1.16 - 01/29 LOW [place] 1. Medical Center CHEMISTRY Ca Norm 1.06 1.16 - 01/29 LOW [facility] 1. Medical Center CHEMISTRY Magnesium 2.4 1.8 - 2.4 01/29 Normal [facility] CHEMISTRY AGAP 15.0 10.0 - 01/29 Normal [facility] 20.0 Medical Center CHEMISTRY BUN 23.0 7 - 22 01/29 [facility] Medical Center CHEMISTRY Creatinine 0.8 0.5 - 1.4 01/29 Normal [facility] Medical Center CHEMISTRY Glucose Lvl 232.0 01/29 NA <sup>6</sup>I nterpretive Medical Data: Center Reference Ranges : 0 - 7 days : 41 - 90 mg/dL 7 days - 150 yrs : 70 - 99 mg/dL (fasting), based on the clinical recommendatio ns of the [place] [employer]. CHEMISTRY Potassium 4.0 3.5 - 5.1 01/29 Normal [facility] Center CHEMISTRY Sodium Lvl 144.0 135 - 145 01/29 Normal [facility] CHEMISTRY Chloride Lvl 109.0 95 - 109 01/29 Normal [facility] CHEMISTRY CO2 24.0 24 - 32 01/29 Normal [facility] CHEMISTRY Calcium Lvl 7.8 8.5 - 10.5 01/29 LOW [facility] HEMATOLOGY Large Plt Slight >None Seen 01/29 ABN [place] *ABN* /2010 Medical (01/29/2011 10:02:00) ?? Center HEMATOLOGY Polychrom Slight >None Seen 01/29 Normal [facility] (01/29/2011 10:02:00) ?? /2010 [facility] HEMATOLOGY Atypical 0.0 <<=0.0 01/29 Normal [facility] Lymphs [facility] HEMATOLOGY NRBC 1.0 01/29 NA [facility] HEMATOLOGY Segs 81.0 45.0 - 01/29 HI [place] 75.0 [facility] HEMATOLOGY Lymphocytes 9.0 20.0 - 01/29 LOW [place] 40.0 [facility] HEMATOLOGY Monocytes 5.0 2.0 - 12.0 01/29 Normal [facility] HEMATOLOGY Myelocytes 1.0 <<=0.0 01/29 HI [facility] HEMATOLOGY Metamyelocyt 2.0 0.0 - 1.0 01/29 [facility] [place] [facility] es /2010 [facility] HEMATOLOGY Bands 2.0 0.0 - 11.0 01/29 Normal [facility] HEMATOLOGY Monocytes # 1.0 0.0 - 0.8 01/29 HI [facility] HEMATOLOGY Lymphocytes 1.8 1.0 - 5.5 01/29 Normal [place] # /2010 [facility] HEMATOLOGY Segs-Bands # 16.3 1.5 - 8.1 01/29 HI [facility] HEMATOLOGY MPV 9.4 7.4 - 10.4 01/29 Normal [facility] HEMATOLOGY Hct 33.9 36.0 - 01/29 LOW [place] 48.0 Medical Center HEMATOLOGY MCV 94.0 81.0 - 01/29 Normal [place] 99.0 [facility] HEMATOLOGY MCH 31.5 27.0 - 01/29 [facility] [place] 31.0 [facility] [place] HEMATOLOGY MCHC 33.6 32.0 - 01/29 Normal [place] 36.0 [facility] HEMATOLOGY RDW 16.1 11.5 - 01/29 [facility] [place] 14.5 Medical Center HEMATOLOGY Platelet 178.0 133 - 450 01/29 Normal [facility] HEMATOLOGY WBC 19.6 3.7 - 10.4 01/29 [facility] Medical Center HEMATOLOGY Hgb 11.4 12.0 - 01/29 [facility] [place] 16.0 Medical Center HEMATOLOGY RBC 3.61 4.20 - 01/29 [facility] [place] 5.40 Medical Center CHEMISTRY AGAP 14.2 10.0 - 01/28 Normal [place] 20.0 Medical Center CHEMISTRY Chloride Lvl 116.0 95 - 109 01/28 [facility] Medical Center CHEMISTRY Sodium Lvl 152.0 135 - 145 01/28 [facility] Medical Center CHEMISTRY Potassium 3.2 3.5 - 5.1 01/28 [facility] Center CHEMISTRY CO2 25.0 24 - 32 01/28 Normal Medical Center CHEMISTRY Calcium Lvl 7.5 8.5 - 10.5 01/28 [facility] Medical Center CHEMISTRY Glucose Lvl 57.0 01/28 NA <sup>7</sup>I nterpretive Medical Data: Center Reference Ranges : 0 - 7 days : 41 - 90 mg/dL 7 days - 150 yrs : 70 - 99 mg/dL (fasting), based on the clinical recommendatio ns of the [place] [employer]. CHEMISTRY BUN 21.0 7 - 22 01/28 Normal [facility] CHEMISTRY Creatinine 0.7 0.5 - 1.4 01/28 Normal [facility] Medical Center CHEMISTRY Phosphorus 3.2 2.5 - 4.5 01/28 Normal Medical Center CHEMISTRY Magnesium 2.2 1.8 - 2.4 01/28 [facility] Medical Center CHEMISTRY Ca Norm 1.09 1. - 01/28 [facility] [place] 1 Medical Center CHEMISTRY Ca Ion 1.06 1.16 - 01/28 [facility] [place] 06.30 Medical Center CHEMISTRY Ca Norm mgdL 4.36 4.65 - 01/28 [facility] [place] 10.18 Medical Center CHEMISTRY Ca Ion mgdL 4.24 4.65 - 01/28 [facility] 10.18 Medical Center HEMATOLOGY Platelet 144.0 133 - 450 08/30 Normal [facility] HEMATOLOGY MPV 10.4 7.4 - 10.4 01/28 Normal [facility] HEMATOLOGY MCH 31.1 27.0 - 08 [facility] [place] 31.0 /2010 Medical Center HEMATOLOGY MCHC 33.3 32.0 - 08 [facility] [place] 36.0 /2010 [facility] HEMATOLOGY RDW 16.0 11.5 - 01/28 [facility] [place] 14.5 /2010 Medical Center HEMATOLOGY Hct 32.3 36.0 - 08 [facility] [place] 48.0 /2010 Medical Center HEMATOLOGY MCV 93.5 81.0 - 08 [facility] [place] 99.0 /2010 Medical Center HEMATOLOGY RBC 3.45 4.20 - 01/28 [facility] [place] 5.40 /2010 Medical Center HEMATOLOGY Hgb 10.7 12.0 - 01/28 [facility] [place] 16.0 Medical Center HEMATOLOGY WBC 20.1 3.7 - 10.4 01/28 [facility] [place] HEMATOLOGY Eosinophils 0.0 0.0 - 4.0 01/28 Normal [facility] HEMATOLOGY Monocytes 4.1 2.0 - 12.0 01/28 Normal [facility] HEMATOLOGY Segs-Bands # 18.0 1.5 - 8.1 01/28 [facility] HEMATOLOGY Basophils 0.0 0.0 - 1.0 01/28 Normal [facility] HEMATOLOGY Lymphocytes 6.6 20.0 - 08 [facility] [place] 40.0 /2010 [facility] [facility] HEMATOLOGY Basophils # 0.0 0.0 - 0.2 01/28 Normal [facility] HEMATOLOGY Eosinophils 0.0 0.0 - 0.5 01/28 [facility] [place] [facility] HEMATOLOGY Monocytes # 0.8 0.0 - 0.8 01/28 Normal [facility] HEMATOLOGY Lymphocytes 1.3 1.0 - 5.5 01/28 [facility] HEMATOLOGY Segs 89.3 45.0 - 01/28 [facility] [place] 75.0 [facility] CHEMISTRY Osmolality 317.0 280 - 300 01/27 [facility] CHEMISTRY POC A pH 7.56 7.35 - 08 [facility] [place] 7.45 [facility] CHEMISTRY POC A PO2 150.0 80 - 100 01/27 [facility] Medical Center CHEMISTRY POC A Source ART 01/27 NA [facility] CHEMISTRY POC A Temp 37.0 01/27 NA [facility] CHEMISTRY POC A BE 4.0 -2-2 - 2 01/27 [facility] CHEMISTRY POC A O2 Sat 100.0 95.0 - 01/27 Normal [facility] 100.0 [facility] CHEMISTRY POC A HCO3 25.0 22 - 26 01/27 Normal [facility] CHEMISTRY POC A PCO2 28.0 35 - 45 01/27 CRIT [facility] CHEMISTRY Osmolality 305.0 280 - 300 01/27 HI [facility] HEMATOLOGY PTT 25.2 22.9 - 01/27 Normal <sup>12</sup> [facility] 35.8 Interpretive Medical Data: Heparin Center Therapeutic Range: 57 - 92 Seconds HEMATOLOGY PT 15.8 12.0 - 01/27 [facility] 14. [facility] HEMATOLOGY INR 1.26 0.85 - 01/27 HI <sup>9</sup>I [facility] 1. nterpretive Medical Data: Center RECOMMENDED RANGES FOR PROTIME INR: 2.0-3.0 for most medical and surgical thromboemboli c states. 2.5-3.5 for artificial heart valves and recurrent embolism. INR SHOULD BE USED ONLY FOR PATIENTS ON STABLE ANTICOAGULANT THERAPY. HEMATOLOGY Eosinophils 0.0 0.0 - 4.0 01/27 Normal [facility] HEMATOLOGY Basophils 0.2 0.0 - 1.0 01/27 Normal [facility] HEMATOLOGY Eosinophils 0.0 0.0 - 0.5 01/27 Normal [facility] HEMATOLOGY Basophils # 0.0 0.0 - 0.2 01/27 Normal [facility] CHEMISTRY Osmolality 306.0 280 - 300 01/26 HI [facility] HEMATOLOGY Basophils # 0.0 0.0 - 0.2 01/26 Normal [facility] HEMATOLOGY Eosinophils 0.0 0.0 - 4.0 01/26 Normal [facility] HEMATOLOGY Eosinophils 0.0 0.0 - 0.5 01/26 Normal [facility] HEMATOLOGY Basophils 0.1 0.0 - 1.0 01/26 Normal [facility] HEMATOLOGY PTT 29.8 22.9 - 01/26 Normal <sup>13</sup> [facility] 35.8 /2010 Interpretive Medical Data: Heparin Center Therapeutic Range: 57 - 92 Seconds HEMATOLOGY PT 15.4 12.0 - 01/26 [facility] 14.7 /2010 [facility] [place] HEMATOLOGY INR 1.22 0.85 - 01/26 [place] <sup>10</sup> [facility] 1.17 /2010 Interpretive Medical Data: Center RECOMMENDED RANGES FOR PROTIME INR: 2.0-3.0 for most medical and surgical thromboemboli c states. 2.5-3.5 for artificial heart valves and recurrent embolism. INR SHOULD BE USED ONLY FOR PATIENTS ON STABLE ANTICOAGULANT THERAPY. CHEMISTRY POC A Glu 108.0 65 - 110 01/26 Normal [facility] CHEMISTRY POC A LA 0.8 0.5 - 2.2 01/26 Normal [facility] CHEMISTRY POC A Ca Ion 1.17 1.16 - 01/26 Normal [facility] 1.30 [facility] CHEMISTRY POC A K 3.6 3.5 - 5.1 01/26 Normal [facility] CHEMISTRY POC A Na 140.0 135 - 145 01/26 Normal [facility] CHEMISTRY POC A PO2 80.0 80 - 100 01/26 Normal [facility] CHEMISTRY POC A PCO2 40.0 35 - 45 01/26 Normal [facility] CHEMISTRY POC A Source ART 01/26 NA [facility] CHEMISTRY POC A Temp 37.0 01/26 NA [facility] CHEMISTRY POC A pH 7.4 7.35 - 01/26 Normal [facility] 7.45 [facility] CHEMISTRY POC A Hct 34.0 36.0 - 01/26 LOW [place] 48.0 [facility] CHEMISTRY POC A BE 0.0 -2-2 - 2 01/26 Normal [facility] CHEMISTRY POC A O2 Sat 96.0 95.0 - 01/26 Normal [facility] 100.0 [facility] CHEMISTRY POC A HCO3 25.0 22 - 26 01/26 Normal [facility] CHEMISTRY POC A O2 Sat 96.0 95.0 - 01/26 Normal [place] 100.0 [facility] CHEMISTRY POC A K 3.6 3.5 - 5.1 01/26 Normal [facility] CHEMISTRY POC A LA 0.8 0.5 - 2.2 01/26 Normal [facility] CHEMISTRY POC A Glu 113.0 65 - 110 01/26 [facility] [place] CHEMISTRY POC A Source ART 01/26 NA [facility] [place] CHEMISTRY POC A Temp 37.0 01/26 NA [facility] CHEMISTRY POC A HCO3 25.0 22 - 26 01/26 Normal [facility] CHEMISTRY POC A PO2 79.0 80 - 100 01/26 LOW [facility] CHEMISTRY POC A PCO2 38.0 35 - 45 01/26 Normal [facility] CHEMISTRY POC A pH 7.42 7.35 - 01/26 Normal [facility] 7.45 [facility] CHEMISTRY POC A BE 0.0 -2-2 - 2 01/26 Normal [facility] CHEMISTRY POC A Ca Ion 1.22 1.16 - 01/26 Normal [facility] . [facility] CHEMISTRY POC A Na 138.0 135 - 145 01/26 Normal [facility] CHEMISTRY POC A Hct 36.0 36.0 - 01/26 Normal 48.0 [facility] CHEMISTRY POC A Hct 41.0 36.0 - 01/26 Normal 48. [facility] CHEMISTRY POC A Na 140.0 135 - 145 01/26 Normal [facility] CHEMISTRY POC A Ca Ion 1.05 1. - 01/26 LOW [place] . [facility] CHEMISTRY POC A K 3.6 3.5 - 5.1 01/26 Normal [facility] CHEMISTRY POC A LA 0.8 0.5 - 2.2 01/26 Normal [facility] CHEMISTRY POC A Glu 107.0 65 - 110 01/26 Normal [facility] BLOOD BANK Antibody Negative 01/26 Normal [facility] RESULTS Scrn (01/26/2011 09:00:00) ?? /2010 [facility] BLOOD BANK ABO/Rh O NEG 01/26 Unknown [facility] [place] HEMATOLOGY PTT 28.2 22.9 - 01/26 Normal <sup>14</sup> [facility] 35.8 Interpretive Medical Data: [facility] Therapeutic Range: 57 - 92 Seconds HEMATOLOGY INR 1.24 0.85 - 01/26 [place] <sup>11</sup> [facility] 1 Interpretive Medical Data: Center RECOMMENDED RANGES FOR PROTIME INR: 2.0-3.0 for most medical and surgical thromboemboli c states. 2.5-3.5 for artificial heart valves and recurrent embolism. INR SHOULD BE USED ONLY FOR PATIENTS ON STABLE ANTICOAGULANT THERAPY. HEMATOLOGY PT 15.6 12.0 - 01/26 [facility] 14.7 Medical Center CHEMISTRY CK MB Index 0.4 0.0 - 2.5 01/25 Normal [facility] CHEMISTRY CK MB 1.1 0.5 - 3.6 01/25 Normal [facility] CHEMISTRY Myoglobin 141.0 - 72 01/25 [facility] Center CHEMISTRY Troponin-T <0.01 0.000 - 01/25 Normal [facility] 0. Medical Center CHEMISTRY Total CK 256.0 12 - 191 01/25 [facility] Center CHEMISTRY Total CK 219.0 12 - 191 01/25 [facility] CHEMISTRY Troponin-T <0.01 0.000 - 01/25 Normal [facility] 0. [facility] CHEMISTRY CK MB Index 0.7 0.0 - 2.5 01/25 Normal [facility] CHEMISTRY CK MB 1.5 0.5 - 3.6 01/25 Normal [facility] CHEMISTRY Lactic Acid 2.4 0.5 - 2.2 01/25 [facility] Lvl [facility] HEMATOLOGY Target Cell Slight >None Seen 01/25 ABN [facility] *ABN* /2010 Medical (01/24/2011 19:16:00) ?? Center HEMATOLOGY Bands 2.0 0.0 - 11.0 01/25 Normal [facility] HEMATOLOGY Plt Morph Normal 01/25 Normal [facility] (01/24/2011 19:16:00) ?? [facility] CHEMISTRY Troponin-T <0.01 0.000 - 01/24 Normal [facility] 0. [facility] CHEMISTRY Myoglobin 60.0 72 01/24 Normal [facility] CHEMISTRY Total CK 34.0 - 191 01/24 Normal [facility] BLOOD BANK Antibody Negative 01/24 Normal [facility] RESULTS Scrn (01/24/2011 03:15:00) ?? [facility] BLOOD BANK ABO/Rh O NEG 01/24 Unknown [facility] RESULTS Medical Center BLOOD BANK Platelet Product available 01/24 Normal [facility] RESULTS product (01/24/2011 03:15:00) ?? [facility] BLOOD BANK RBC product Product available 01/24 [facility] RESULTS (01/24/2011 03:15:00) ?? [facility] CHEMISTRY CK MB Index 1.2 0.0 - 2.5 01/23 Normal [facility] CHEMISTRY CK MB 1.2 0.5 - 3.6 01/23 Normal [facility] CHEMISTRY Hgb A1C 8.7 01/23 NA <sup>8</sup>I [...] CHEMISTRY Troponin-I <0.02 0.00 - 01/23 Normal [facility] 0.40 [facility] URINALYSIS UA Ketones TR 01/23 [facility] URINALYSIS UA ?? 0.1 - 1.0 01/23 [facility] Urobilinogen /2010 [facility] URINALYSIS UA Sq Epi Occasional /LPF >Few [facility] (01/23/2011 05:29:00) ?? Center URINALYSIS UA WBC <1.0 0 - 5 01/23 Normal [facility] URINALYSIS UA Mucus Few /LPF >None Seen 01/23 [facility] *NA* Medical (01/23/2011 05:29:00) ?? Center URINALYSIS UA RBC <1.0 0 - 2 01/23 Normal [facility] URINALYSIS UA Protein Negative mg/dL >Negative 01/23 [facility] (01/23/2011 05:29:00) ?? [facility] URINALYSIS UA Nitrite Negative >Negative 01/23 [facility] (01/23/2011 05:29:00) ?? [facility] URINALYSIS UA Leuk Est Negative >Negative 01/23 Normal [facility] (01/23/2011 05:29:00) ?? [facility] URINALYSIS UA Bili Negative >Negative 01/23 NA [facility] *NA* Medical (01/23/2011 05:29:00) ?? Center URINALYSIS UA Glucose 150 mg/dL >Negative 01/23 ABN [facility] *ABN* [facility] (01/23/2011 05:29:00) ?? Center URINALYSIS UA Blood Negative >Negative 01/23 Normal [facility] (01/23/2011 05:29:00) ?? [facility] URINALYSIS UA pH 5.0 5.0 - 8.0 01/23 Normal [facility] URINALYSIS UA Spec Grav 1.01 <<=1.030 01/23 Normal [facility] URINALYSIS UA Turbidity Clear >Clear 01/23 Normal [facility] (01/23/2011 05:29:00) ?? [facility] URINALYSIS UA Color Yellow >Yellow 01/23 NA [facility] *NA* [facility] (01/23/2011 05:29:00) ?? Center BACTERIAL - MRSA by PCR Negative 1 01/23 Normal <sup>1</sup>I [facility] SEROLOGY (01/23/2011 05:00:00) ?? nterpretive Medical Data: [...] an infectious diseases specialist. Microbiolog Culture: 01/23 [facility] Screen Pathology Reports No Data Provided for This Section Diagnostic Reports Report Value Date Source Chest 2 views DX PROCEDURE: Chest Radiograph. 11/18/2018 DOMONIQUE Kelly Clinical Indication: Pneumonia. Comparison: Chest radiograph 09/17/2018. FINDINGS: The chest shows minimal subsegmental atelectasis at the left lung base. No focal consolidation is identified. There is left-sided CAN DOFFER shunt tubing. There are calcified granulomata in the upper lobes. The cardiac silhouette is upper limits of normal in size. Degenerative change involves the thoracic spine and shoulders. An old distal right clavicle fracture is suspected. IMPRESSION: 1. Minimal left lower lobe subsegmental atelectasis. [id number] Bone Density DXA 10/21/2018 [facility] [employer] [place] BONE DENSITY ASSESSMENT: 10/21/2018 [...] is recommended. This exam was interpreted at [id number] for CRISPIN Kelly 15. Betzy Caba M.D. ms/penrad:10/21/2018 12:45:40 Rod Buster(s): Jan Anthonyland Esophagus BA swallow EXAM: FLUOROSCOPY MODIFIED BARIUM SWALLOW 09/23/[address] [facility] function video DX DATE: 09/23/2018 at [...] 1 view DATE: - Codman's view 09/22/[address] [facility] INDICATION: Suspected shunt malfunction. Center TECHNIQUE: [...] DX EXAM: XR CHEST 1 VIEW 09/17/[address] [facility] DATE: 09/17/2018 3:00 CDT Center INDICATION: Tube placement/removal/reposition - atlectasis COMPARISON: 09/15/2017 TECHNIQUE: AP chest. FINDINGS: Feeding tube has been removed. Left upper extremity PICC and CAN DOFFER shunt remains in position. Persistent small left [...] swallow EXAM: FLUOROSCOPY MODIFIED BARIUM SWALLOW 09/16/2018 [facility] video DX DATE: 09/16/2018 at 1349 hours Center INDICATION: Dysphagia - Comparison to [facility] 09/08/18. COMPARISON: 09/08/2018 modified barium swallow. TECHNIQUE: Oral barium contrast of differing consistencies was given to the patient to assess swallowing mechanism. The study was performed in conjunction with speech pathology. FLUOROSCOPY TIME: 1 minute 29 seconds SKIN DOSE: 11.51 mGy DISCUSSION: The patient was given barium contrast of different consistencies. Thin barium: Deep, silent penetration.. [place] barium: Normal. Pudding barium: Pooling into the [...] DX EXAM: XR CHEST 1 VIEW 09/15/[address] [facility] DATE: 09/15/2018 3:00 CDT Center INDICATION: [...] DX EXAM: XR CHEST 1 VIEW 09/14/[address] [facility] DATE: 09/14/2018 3:00 CDT Center INDICATION: [...] CT ABDOMEN AND PELVIS WITH CONTRAST 09/13/[address] [facility] contrast CT DATE: 09/13/2018 10:29 CDT [...] gastric antrum. Right upper quadrant surgical clips. CAN DOFFER shunt catheter tip at the lower central [...] CT EXAM: CT CHEST WITH CONTRAST 09/13/[address] [facility] DATE: 09/13/2018 10:28 CDT Center INDICATION: [...] MRI BRAIN WITH AND WITHOUT CONTRAST 09/13/[address] [facility] MRI DATE: 09/13/2018 at 0221 hours. [...] for EXAM: XR CHEST 1 VIEW 09/13/[address] [facility] Placement DX DATE: 09/13/2018 3:00 CDT Center INDICATION: Tube placement - ETT placement COMPARISON: 08/31/2018 TECHNIQUE: AP chest IMPRESSION: 1. Interval placement of endotracheal tube with tip terminates 2 cm above the jennifer. Interval placement of feeding tube with adequate positioning. Again seen is left upper extremity PICC with stable p osition. Left sided CAN DOFFER shunt is stable in position. 2. Small left pleural effusion with left basilar atelectatic changes. No new lung lesions identified. 3. Cardiomediastinal silhouette is enlarged, unchanged. Aortic atherosclerotic disease. 4. Osseous structures are stable. Abdomen AP DX EXAM: XR ABDOMEN 1 VIEW 09/12/[address] [facility] DATE: 09/12/2018 20:16 CDT Center INDICATION: [...] DX EXAM: XR ABDOMEN 1 VIEW 09/12/[address] [facility] DATE: 09/12/2018 17:42 CDT Center INDICATION: - [place] placement COMPARISON: 03/14/2011 TECHNIQUE: Limited AP view of the abdomen for tube placement assessment. Number of images: 1 FINDINGS: Transesophageal feeding tube tip in the proximal stomach and needs to be further advanced. Transesophageal suction tube: None. Other tubes and lines: A CAN DOFFER shunt catheter noted. No other changes. IMPRESSION: Tube positions as above. Skull 1 view DX EXAM: XR SKULL 1 VIEW 09/11/[address] [facility] DATE: 09/11/2018 1:02 PM Center INDICATION: CAN DOFFER shunt, MRI COMPARISON: Skull x-ray from 08/18/2018 TECHNIQUE: A single oblique radiograph of the skull. DISCUSSION: Ventricular catheter with Hakim Codman valve, setting of 140 mm water, without interval change. IMPRESSION: Stable valve setting 140 mm water. Chest 1 v for EXAM: XR CHEST 1 VIEW 09/10/[address] [facility] Placement DX DATE: 09/10/2018 1:51 CDT Center INDICATION: Line Placement - Chest 1 view for line placement COMPARISON: 09/08/2017 TECHNIQUE: AP chest. FINDINGS: Left-sided chest wall CAN DOFFER shunt is unchanged. Redemonstration of left upper [...] MODIFIED BARIUM SWALLOW WITH SPEECH PATHOLOGY 03/2019 [facility] function video DX DATE: 09/08/2018 12:40 CDT . 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 Thin barium: Symptomatic aspiration [place]: Symptomatic aspiration IMPRESSION: 1. Some traumatic aspiration with thin and nectar consistencies 2. Pharyngeal stasis with nasal regurgitation 3. Please refer to separate speech pathology report for further detail and recommendations Chest 1 v for Chest 1 v for Placement DX 09/08/2018 9:56 CDT 09/08/2018 [facility] Placement DX HISTORY/INDICATIONS:73 years Female Line Placement [...] Left PICC line terminates in the SVC. [id number] Angiogram cervical PROCEDURE: 08/19/2018 [facility] bilateral VR 1. 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 HISTORY: 73-year-old female patient with past medical history of meningioma of the planum sphenoidale resected in 2010, status post CAN DOFFER shunt placement. Currently complaining of insidious onset [...] a single wall micropuncture technique and a 5-Turkmen sheath was placed. A 5 -Turkmen Vert catheter was coaxially advanced over a [...] carotid arteries with normal filling of the camp manager al carotid artery branches. Smooth atheromatous plaques [...] DX EXAM: XR SKULL 1 VIEW 08/18/[address] [facility] DATE: 08/18/2018 17:56 CDT Center INDICATION: [...] contrast EXAM: MRI BRAIN WITHOUT CONTRAST 08/18/[address] [facility] MRI EXAM: MRI ORBITS WITHOUT CONTRAST. [...] contrast EXAM: MRI BRAIN WITHOUT CONTRAST 08/18/[address] [facility] MRI EXAM: MRI ORBITS WITHOUT CONTRAST. [...] w EXAM: CT NECK WITH CONTRAST 08/18/[address] [facility] contrast CT DATE: 08/18/2018 7:19 CDT [...] swallow EXAM: FLUOROSCOPY MODIFIED BARIUM SWALLOW 08/18/[address] [facility] function video DX DATE: 08/18/2018 7:00 [facility] Center INDICATION: - swallow. ADDITIONAL INFORMATION: None. [...] CT EXAM: CT CHEST WITH CONTRAST 08/17/[address] [facility] DATE: 08/17/2018 17:07 T Center INDICATION: [...] and Tubes: Left sided, anterior chest wall CAN DOFFER shunt is noted. Lower Neck: Please refer [...] of the skull for shunt setting. 2018 [facility] HISTORY: Evaluate shunt setting. Comparison with radiographs from August 19, 2011. TECHNIQUE: 3 views of the skull were obtained. FINDINGS: A Codman valve is placed, the shunt valve setting is approximately 150 cc of water. FINDINGS: Radiographs for shunt valve setting. Brain/Neck CTA Exam: CTA HEAD AND NECK 08/16/[address] [facility] DATE: 08/16/2018 7:42 PM CDT Center [...] arteries and basilar artery are patent. Both railcar mechanic are patent. Nonflow limiting stenot ic lesions in the left P2 and right P3-P4 segment. No AV malformation or aneurysms. IMPRESSION: Atheromatous disease in the carotid bulbs not resulting in significant stenosis by NASCET criteria. Greater than 50% stenosis in the para and supraclinoid right internal carotid artery. No flow-limiting stenotic lesions in both railcar mechanic. Aberrant right subclavian artery Qualitative and quantitative assessments of stenosis in the carotid bulbs is made referencing the distal internal carotid artery Brain wo contrast CT EXAM: CT BRAIN WITHOUT CONTRAST 08/16/[address] [facility] DATE: 08/16/2018 4:26 PM CDT Center [...] Source Temperature Oral (F) 98.8 F 11/29/2018 [facility] Heart Rate 78 11/29/2018 [facility] Systolic (mm Hg) 174 11/29/2018 [facility] Diastolic (mm Hg) 74 11/29/2018 [facility] Respitory Rate 20 11/29/2018 [facility] Systolic (mm Hg) 190 11/29/2018 [facility] Diastolic (mm Hg) 79 11/29/2018 [facility] Height 149.86 cm 11/29/2018 [facility] BMI Calculated 45.54 11/29/2018 [facility] Weight 102.273 11/29/2018 [facility] Systolic (mm Hg) 163 11/29/2018 [facility] Diastolic (mm Hg) 83 11/29/[address] [facility] Center Respitory Rate 20 11/29/2018 [facility] Heart Rate 80 11/29/2018 [facility] Temperature Oral (F) 98.7 F 11/29/2018 [facility] Systolic (mm Hg) 139 09/23/[address] [facility] Center Diastolic (mm Hg) 66 09/23/2018 [facility] Respitory Rate 18 09/23/2018 [facility] Temperature Oral (F) 97.8 F 09/23/2018 [facility] Heart Rate 70 09/23/2018 [facility] Temperature Oral (F) 97.2 F 09/23/2018 [facility] Heart Rate 66 09/23/2018 [facility] Systolic (mm Hg) 147 09/23/[address] [facility] Center Diastolic (mm Hg) 63 09/23/2018 [facility] Respitory Rate 18 09/23/2018 [facility] Systolic (mm Hg) 147 09/23/[address] [facility] Center Diastolic (mm Hg) 53 09/23/2018 [facility] Respitory Rate 18 09/23/2018 [facility] Heart Rate 67 09/23/2018 [facility] Temperature Oral (F) 98.3 F 09/23/2018 [facility] BMI Calculated 40.88 09/21/2018 [facility] Weight 91.818 09/21/2018 [facility] Temperature Oral (F) 98.1 F 09/20/2018 [facility] Temperature Oral (F) 97.9 F 09/20/2018 [facility] Respitory Rate 30 09/20/2018 [facility] Systolic (mm Hg) 174 09/20/[address] [facility] Center Diastolic (mm Hg) 74 09/20/2018 [facility] Respitory Rate 27 09/20/2018 [facility] Systolic (mm Hg) 167 09/20/[address] [facility] Center Diastolic (mm Hg) 70 09/20/2018 [facility] Temperature Oral (F) 97.5 F 09/20/2018 [place] [facility] Respitory Rate 35 09/20/2018 [facility] Systolic (mm Hg) 175 09/20/2018 [facility] Diastolic (mm Hg) 71 09/20/2018 [facility] Height 149.86 cm 09/15/2018 [facility] Height 149.86 cm 09/15/2018 [facility] Height 149.86 cm 09/15/2018 [facility] Heart Rate 101 09/11/2018 [facility] Heart Rate 98 09/11/2018 [facility] Heart Rate 95 09/11/2018 [facility] Respitory Rate 19 09/10/2018 [facility] Systolic (mm Hg) 161 09/10/2018 [facility] Diastolic (mm Hg) 101 09/10/2018 [facility] Respitory Rate 16 09/10/2018 [facility] Systolic (mm Hg) 148 09/10/2018 [facility] Diastolic (mm Hg) 67 09/10/2018 [facility] Systolic (mm Hg) 121 09/09/2018 [facility] Diastolic (mm Hg) 54 09/09/2018 [facility] Respitory Rate 15 09/09/2018 [facility] BMI Calculated 41.99 09/08/2018 [facility] Height 149.86 cm 09/08/2018 [facility] Weight 94.3 09/08/2018 [facility] Systolic (mm Hg) 110 08/20/2018 [facility] Diastolic (mm Hg) 66 08/20/2018 [facility] Respitory Rate 33 08/20/2018 [facility] Temperature Oral (F) 98.0 F 08/20/2018 [facility] Temperature Oral (F) 97.9 F 08/19/2018 [facility] Respitory Rate 20 08/19/2018 [facility] Temperature Oral (F) 97.8 F 08/19/2018 [facility] Systolic (mm Hg) 138 08/19/2018 [facility] Diastolic (mm Hg) 76 08/19/2018 [facility] Respitory Rate 18 08/19/2018 [facility] Systolic (mm Hg) 144 08/19/2018 [facility] Diastolic (mm Hg) 63 08/19/2018 [facility] Heart Rate 92 08/19/2018 [facility] Heart Rate 72 08/18/2018 [facility] Heart Rate 70 08/18/2018 [facility] BMI Calculated 49.69 08/17/2018 [facility] Height 149.86 cm 08/17/2018 [facility] Weight 111.6 08/17/2018 [facility] Weight 113.636 08/16/2018 [facility] Height 152.4 cm 08/16/2018 [facility] BMI Calculated 48.93 08/16/[address] [facility] Diastolic (mm Hg) 60.0 03/25/[address] [facility] Systolic (mm Hg) 151.0 03/25/2011 [facility] Temperature Oral (F) 97.6 F 03/25/2011 [facility] Heart Rate 87.0 03/25/2011 [facility] Respitory Rate 20.0 03/25/2011 [facility] Temperature Oral (F) 97.8 F 03/25/[address] [facility] Respitory Rate 20.0 03/25/2011 [facility] Heart Rate 98.0 03/25/[address] [facility] Systolic (mm Hg) 163.0 03/25/[address] [facility] Diastolic (mm Hg) 82.0 03/25/[address] [facility] Diastolic (mm Hg) 68.0 03/25/[address] [facility] Systolic (mm Hg) 156.0 03/25/2011 [facility] Temperature Oral (F) 97.7 F 03/25/2011 [facility] Heart Rate 95.0 03/25/2011 [facility] Respitory Rate 20.0 03/25/2011 [facility] Weight 90.909 03/22/2011 [facility] Height 149.86 cm 03/22/2011 [facility] Weight 90.909 03/22/2011 [facility] Height 149.86 cm 03/22/2011 [facility] Diastolic (mm Hg) 56.0 03/15/[address] [facility] Systolic (mm Hg) 128.0 03/15/[address] [facility] Respitory Rate 16.0 03/15/2011 [facility] Heart Rate 85.0 03/15/2011 [facility] Temperature Oral (F) 96.6 F 03/15/[address] [facility] Diastolic (mm Hg) 91.0 03/15/[address] [facility] Systolic (mm Hg) 121.0 03/15/2011 [facility] Respitory Rate 18.0 03/15/2011 [facility] Heart Rate 78.0 03/15/2011 [facility] Temperature Oral (F) 98.2 F 03/15/[address] [facility] Diastolic (mm Hg) 39.0 03/15/2011 [facility] Systolic (mm Hg) 170.0 03/15/2011 [facility] Respitory Rate 18.0 03/15/2011 [facility] Temperature Oral (F) 98.0 F 03/15/2011 [facility] Heart Rate 93.0 03/15/2011 [facility] Weight 83.665 03/14/2011 [facility] Height 149.86 cm 03/14/2011 [facility] Heart Rate 97.0 03/07/2011 [facility] Respitory Rate 20.0 03/07/[address] [facility] Systolic (mm Hg) 140.0 03/07/[address] [facility] Diastolic (mm Hg) 66.0 03/07/2011 [facility] Temperature Oral (F) 98.4 F 03/07/[address] [facility] Diastolic (mm Hg) 69.0 03/07/[address] [facility] Systolic (mm Hg) 140.0 03/07/2011 [facility] Respitory Rate 20.0 03/07/2011 [facility] Temperature Oral (F) 98.6 F 03/07/2011 [facility] Heart Rate 115.0 03/07/2011 [facility] Systolic (mm Hg) 131.0 03/06/2011 [facility] Temperature Oral (F) 97.6 F 03/06/2011 [facility] Respitory Rate 18.0 03/06/2011 [facility] Heart Rate 104.0 03/06/2011 [facility] Diastolic (mm Hg) 44.0 03/06/2011 [facility] Height 149.86 cm 02/26/2011 [facility] Weight 90.909 02/26/2011 [facility] Temperature Oral (F) 98.2 F 02/26/2011 [facility] Heart Rate 90.0 02/26/2011 [facility] Respitory Rate 18.0 02/26/[address] [facility] Systolic (mm Hg) 154.0 02/26/[address] [facility] Diastolic (mm Hg) 54.0 02/26/2011 [facility] Temperature Oral (F) 98.9 F 02/26/2011 [facility] Heart Rate 93.0 02/26/2011 [facility] Respitory Rate 18.0 02/26/[address] [facility] Systolic (mm Hg) 153.0 02/26/2011 [facility] Diastolic (mm Hg) 60.0 02/26/[address] [facility] Temperature Oral (F) 98.7 F 02/26/[address] [facility] Respitory Rate 20.0 02/26/[address] [facility] Systolic (mm Hg) 149.0 02/26/[address] [facility] Diastolic (mm Hg) 62.0 02/26/2011 [facility] Heart Rate 95.0 02/25/[address] [facility] Weight 100.0 02/20/[address] [facility] Height 149.86 cm 02/19/2011 [facility] Weight 100.0 02/19/2011 [facility] Heart Rate 104.0 02/19/2011 [facility] Temperature Oral (F) 98.6 F 02/19/2011 [facility] Respitory Rate 20.0 02/19/[address] [facility] Systolic (mm Hg) 128.0 02/19/[address] [facility] Diastolic (mm Hg) 63.0 02/19/2011 [facility] Respitory Rate 20.0 02/19/[address] [facility] Systolic (mm Hg) 115.0 02/19/[address] [facility] Diastolic (mm Hg) 58.0 02/19/2011 [facility] Heart Rate 110.0 02/19/2011 [facility] Temperature Oral (F) 97.5 F 02/19/[address] [facility] Diastolic (mm Hg) 64.0 02/18/2011 [facility] Temperature Oral (F) 98.4 F 02/18/2011 [facility] Heart Rate 108.0 02/18/[address] [facility] Respitory Rate 18.0 02/18/[address] [facility] Systolic (mm Hg) 152.0 02/18/[address] [facility] Height 149.86 cm 01/31/2011 [facility] Weight 100.455 01/31/[address] [facility] Systolic (mm Hg) 116.0 01/31/[address] [facility] Diastolic (mm Hg) 55.0 01/31/2011 [facility] Peripheral Pulse Rate 67.0 01/31/[address] [facility] Respitory Rate 20.0 01/31/2011 [facility] Temperature Oral (F) 98.5 F 01/31/2011 [facility] Peripheral Pulse Rate 65.0 01/31/2011 [facility] Systolic (mm Hg) 148.0 01/31/2011 [facility] Diastolic (mm Hg) 58.0 01/31/2011 [facility] Diastolic (mm Hg) 62.0 01/31/2011 [facility] Peripheral Pulse Rate 64.0 01/31/2011 [facility] Systolic (mm Hg) 153.0 01/31/2011 [facility] Respitory Rate 21.0 01/31/2011 [facility] Temperature Oral (F) 97.8 F 01/31/2011 [facility] Respitory Rate 16.0 01/31/2011 [facility] Temperature Oral (F) 98.1 F 01/31/2011 [facility] Height 149.86 cm 01/23/2011 [facility] Weight 89.0 01/23/2011 [facility] Encounters Location Location Encounter Encounter Reason Attending ADM DC Status Source Details Type Number For Provider Date Date Visit [facility] AA [id number] LIFE ANKUR CARABALLO 01/23 01/[address] [facility] 0 FLIGHT [facility] Inpatient [id number] BRAIN KELLEY DAY 01/23 01/[address] [facility] 7 MASS/DONNIE [facility] IR [id number] BRAIN MEILANI 01/31 02/19 Active 4 MASS [facility] Inpatient [id number] HYDROCEP KELLEY DAY 02/19 02/[address] [facility] 0 HALUS [facility] IR [id number] SDH MEILANI 02/26 03/07 Active 9 [facility] OU [id number] DEHYDRAT MI 03/14 03/[address] [facility] 1 ION KORIMILLI /2010 [facility] Inpatient [id number] DEHYDRAT NOÉ 03/22 03/[address] [facility] 2 ION,PAIN KINZA /2010 [facility] CONTROL Center MNA Phone [id number] 08/16 08/18 Julia [facility]surger [facility] [id number] Malia 08/16 08/20 [facility] Jorge Alberto 5 Dayan [facility] Inpatient [id number] Sadi 09/09 09/10 [place] 0 [place] [facility] Inpatient [id number] Kasi Amato 09/12 09/20 [facility] Jorge Alberto [facility] Observation [id number] David 09/21 09/23 [facility] Jorge Alberto 3 [facility] Outpt Diag [id number] Suur 10/21 10/22 [facility] 3 [place] Outpt Diag [id number] Suur 11/18 11/19 [facility] 4 [facility] Emergency [id number] Abel 11/29 11/29 [facility] Jorge Alberto 6 [facility] Procedures Procedure Code Date Perfomer Comments Source Selective catheter 09058 08/19/2018 [facility] placement, vertebral Medical artery, unilateral, Center with angiography of the ipsilateral vertebral circulation and all associated radiological supervision and interpretation, includes angiography of the cervicocerebral arch, when performed Insertion or [id number] 01/26/2011 [facility] Replacement of Skull Medical Tongs or Halo Center Traction Device Other Excision or [id number] 01/26/2011 [facility] Destruction of Lesion Medical or Tissue of Brain Center Excision of Lesion or [id number] 01/24/2011 [facility] Tissue of Cerebral Medical Meninges [place] Intracranial Pressure 01.10 01/24/2011 [facility] Transfusion of Packed [id number] 01/24/2011 [facility] Cervical laminectomy [id number] [facility] section [id number] [facility] Resection [id number] [facility] Shunt construction [id number] [facility] Tonsillectomy [id number] [facility] Cervical laminectomy [id number] [facility] section [id number] [facility] Resection [id number] [facility] Shunt construction [id number] [facility] Tonsillectomy [id number] [facility] Cervical laminectomy [id number] [facility] [place] section [id number] [facility] [place] Resection [id number] [facility] [place] Shunt construction [id number] [facility] [place] Tonsillectomy [id number] [facility] [place] Cervical laminectomy [id number] [facility] section [id number] [facility] Resection [id number] [facility] Neuro Shunt construction [id number] [facility] Neuro Tonsillectomy [id number] [facility] Neuro Assessment and Plan Assessment and Plan Date Source Extracted from:Title: Neurology Discharge Summary 09/20/2018 [facility] Author: Sean Coy MD Date: 09/19/18 INPATIENT NEUROLOGY DISCHARGE SUMMARY Patient Name: Franci Lange Date of Admission: 09/12/18 Date of Discharge: 09/19/18 Admission Diagnosis: Weakness, Dysphagia Discharge Diagnoses: Bulbar Myasthenia Gravis Consults Obtained: Opthalmology, ENT Brief HPI: Mrs. Lange is a 73 y.o. 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 She is [...] Important Plans for Future Care: [facility] up [facility]. Please call . Clinic located at [address] [place] [address], [address] [place], [place] [address]. PCP follow-up within 2 weeks Discharge Instructions: Please continue to take all medications as prescribed and follow up as intstructed. 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 Discharge To Location: Home Please call our nurse coordinator at [phone] if you have any questions/ concerns. 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 Has indicated that she wants her to be her medical power of educational coordinator permanently. He agrees with full code. 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 Supportive medicine was consulted for goals of care discussion. #Goals of care/palliative -The patient does not have an advanced directive. -CODE STATUS is currently full code. -The next of kin is the patient's [phone]. -Unable to discussgoals of care today since [...] admission. Please start the patient onsenna2 tabletstwice daily,[id number] twice dailyandbisacodyl suppository as neededfor constipation. -Pain: [...] r concerns, please page us via the [facility] page ion implant machine operator or via the following pager: [phone], #[phone]. Nely Britt MD PGY2 [facility] Internal Medicine ATTENDING ATTESTATION I have personally [...] 3 days or more, recommend bisacodyl supp [place] BID PRN cons tipation. If no BM 5 days or more suggest milk and molasses enema up to every 8 hours until BM. We have discussed the patient with primary team physician. Thank you for the opportunity to participate in this patient's care. We will follow along with you. [facility] Pager:#[phone](24 hours / 7 days) Extracted from:Title: Discharge Summary 09/10/2018 [facility] Author: Sadi Cortés MD Date: 09/09/18 Discharge Information Discharge Summary Information: Discharge diagnosis, Discharge medications ( See Discharge Medications). Fluctuating left eye vision loss Dysphagia Essential hypertension Hyperlipidemia History of CAN DOFFER shunt History of craniotomy status post meningioma resection Discharge Plan Discharge Summary Plan Discharge Status: stable. Discharge instructions given. Discharge disposition: Higher level of care. Discharge planning greater than 30 minutes Extracted from:Title: Clinical Document Author: Kasi Amato MD Date: 09/09/18 NEUROLOGY and CRITICAL CARE MEDICINE [facility] Consultation / Progress Note Assessment [...] to go to the Medical Center ([facility]) They wish to continue to seek medical care here at [facility]. History of Present Illness 73F Presents (09/07/18) [...] GI No nausea, vomiting, diahhrea, melena, blood [place]. No new urgency, frequency, pain, or urine [...] was articulate. Fluent, if slow. Comprehension intact. Media Job Titles were surprisingly strong bilaterally. The patient was [...] artery. No flow-limiting stenotic lesions in both railcar mechanic. Aberrant right subclavian artery CT Chest (08/18/18) [...] - - - - - EKG (09/07/18) [facility] Sinus rhythm Inferior infarction Anterior infarction T wave abnormality, consider lateral ischemia CT Head (09/07/18) [facility] (Report) Right frontal craniotomy. Orbits and globes [...] (SEP 08) PTT 32.0 (APR 10) Laboratories [facility] (09/07/18) WBC 7.4, normal differential. Hgb 17.0, [...] loss Dysphagia Essential hypertension Hyperlipidemia History of CAN DOFFER shunt History of craniotomy status post meningioma resection Pending neurology evaluation Failed bedside swallow eval. Speech therapy to evaluate the patient PT/OT eval and treat Will reconsult meds once achieved by [facility] per protocol Supportive care management Extracted from:Title: Ophthalmology Consult Note 08/20/2018 [facility] Author: Sivan Thomas MD Date: 08/17/18 CONSULTATION OPHTHALMOLOGY PATIENT NAME: FRANCI LANGE MR #: [id number] ROOM: [place] [address] REQUESTING TEAM/ATTENDING: ED DATE OF CONSULT: 08/17/2018 CONSULTING ATTENDING: Kalani Jacobo MD CONSULTING RESIDENT: Sivan Laws MD REASON FOR CONSULT: left ptosis CHART REVIEWED: YES HISTORY OF PRESENT ILLNESS: 73 year old female with HTN, HLD, planum sphenoidal meningioma, right frontal craniotomy for meningioma s/p resection in 2010, hydrocephalus s/p craniectomy and CAN DOFFER shunt, cr anioplasty in 2011 and POH [...] appointment to follow up with her primary director of strategic partnerships or Dr. Kalani Jacobo at the [facility] upon discharge ( Located: [address] [place] [address], [address] floor, ) or i f patient has a VideoBurst Card/has pending application they can follow up at [facility] ([address] [facility] [address] ) Sivan Laws MD Ophthalmology PGY2 [facility] Plan of Care No Data Provided for This Section Social History Social History Date Source Social History TypeResponse 09/08/2018 [facility] Substance Abuse Use: None. Alcohol Current, Frequency: 1-2 times per year. Smoking Status Never smoker; Exposure to Tobacco Smoke None; Cigarette Smoking Last 365 Days No; Reg Smoking Cessation Counseling No entered on: 09/08/18 Social History TypeResponse 09/08/2018 [facility] Substance Abuse Use: None. Alcohol Current, Frequency: [...]
[2018-12-24 10:54] LABS: Absolute Lymphocytes (CBC) 3.5 K/uL (0.7-4.9); Basophils % 0.1 % (0-1.3); Hematocrit 45.4 % (36.0-45.0); Lymphocytes % 18.2 % (15.3-44.8); MPV 9.8 fL (7.6-11.3); RBC Red Blood Cell Count 4.73 M/uL (3.86-4.86)
--- OUTSIDE RECORDS SUMMARY | 2018-12-24 10:57 | XMS REPORT | CCD ---
:1945 Author Organization [facility] Care Team Providers Name Role Phone SarojarianaJaja [...] Consulting Provider Unavailable Elke Feliz Consulting Provider [phone] Chepe Knott Consulting Provider Unavailable Solange Rizvi [...] Consulting Provider Unavailable Wale Becerra Consulting Provider [phone] Kasi Chavez Consulting Provider Unavailable Linnea Villaseñor Consulting Provider [phone] Navya Zamora Consulting Provider Unavailable Luther Vang Referring Provider Unavailable Linda Pace Consulting Provider Darcy Aleman Consulting Provider Mike Zeng Consulting Provider Unavailable Octavio Wu Consulting Provider Unavailable Molly Brown Consulting Provider Unavailable Estefania Demarco Consulting Provider Unavailable Lisandro Gonzales Consulting Provider Unavailable Elvis Dhillon Consulting Provider Unavailable Nila Navarro Consulting Provider Unavailable Mauricio Reyes Consulting Provider [phone] Renetta Garsia Consulting Provider Unavailable Sherice Carrington Consulting Provider Fracni Ely Consulting Provider [phone] Laure Sahu Consulting Provider Rabia Worley Consulting Provider Unavailable Elisabeth Archer Consulting Provider Unavailable Isabel Gonzales Consulting Provider Unavailable Sharon Farley Consulting Provider Unavailable Allen Skaggs Consulting Provider Unavailable Vicky Urbina My Consulting Provider Allison Stratton Consulting Provider Unavailable Micha Medellin Consulting Provider Unavailable Ronal Lanza Consulting Provider [phone] Telma Villasenor Consulting Provider Unavailable Gideon Nur [...] Consulting Provider Unavailable Filippo Jolly Consulting Provider [phone] Maegan Buck Consulting Provider Unavailable Sylvia Fernandez Consulting Provider Unavailable Flora Roberson Consulting Provider Camden Joy Consulting Provider Unavailable Roopa Davis Consulting Provider [phone] Abril Barnett Consulting Provider Noreen Egan Consulting Provider Unavailable Belle Nesbitt Consulting Provider Unavailable Elizabeth Dominguez Consulting Provider Jimmy Da Silva Consulting Provider Unavailable Hayder Mccarthy Consulting Provider Unavailable Shirley Leos Consulting Provider [phone] Genet Thakkar Consulting Provider Omid Daniels Consulting Provider Unavailable Seth Anne Consulting Provider [phone] Katharine Stover Consulting Provider Unavailable Kolby Berumen I Consulting Provider [phone] David Jolanta Claudio Consulting Provider Carlos Becerra Consulting Provider Unavailable AbaCaroline earl Consulting Provider Unavailable Carolina Rajan Consulting Provider Unavailable Antonio Sofi Consulting Provider Unavailable Raiza Brennan Consulting Provider Unavailable PCP, No Patient Contact Consulting Provider Unavailable Kelvin Dorado Consulting Provider [phone] Chelsea Bunn Consulting Provider Unavailable Chel Schmidt Consulting Provider Jillian Yi Consulting Provider Unavailable Caio Arita Consulting Provider [phone] Erika Steve Consulting Provider [phone] Joseph Mahajan Consulting Provider Unavailable Bonnie Bean Consulting Provider Unavailable Luis Flynn (Bladimir) Gamaliel Consulting Provider [phone] Skyler Maldonado Consulting Provider Unavailable Cassia Cid Consulting Provider Unavailable Estuardo Rey Consulting Provider Unavailable Janice Henley Consulting Provider [phone] Anny Vazquez Consulting Provider Unavailable AlissaJuan Ramon lopez Consulting Provider Kasi Vang Consulting Provider Unavailable Antionette Rowland Consulting Provider Manasa Mcgarry Consulting Provider Unavailable Christie Lal Consulting Provider Unavailable Tracy Leon Consulting Provider Unavailable Sky Rizvi Consulting Provider Unavailable Jess Alicia Consulting Provider [phone] Lazaro Macias Consulting Provider [phone] Rosa Pablo Consulting Provider Unavailable Vivien Mars Consulting Provider Unavailable Penelope Dunbar Consulting Provider Unavailable Chel Stern Consulting Provider Unavailable Jessica Giordano Consulting Provider [phone] Natalie Bell Consulting Provider Unavailable Blas Rg [...] IVPB, Drug 01/24/2011 01/27/2011 Discontinued form: INJ, [id number], Start date: 01/24/11 9:00:00, Duration: 30 day, [...] 30 01/23/2011 ?? Suspended tab, Substitution Allowed [place] Thyroid 120 mg oral 1 tab, PO, [...] Duration: 30 day, Stop date: 02/23/11 9:00:00 [place] 5/325 oral tablet 1 tab, Route: PO, [...] mg, 1 supp, Route: 01/23/2011 01/31/2011 Discontinued [place], Drug form: SUPP, Daily, PRN Constipation, Start [...] 10 mg rectal 10 mg, 1 supp, [place], 01/31/2011 ?? Suspended suppository Daily, PRN, 60 supp, Constipation, Substitution Allowed, SUPP [place] 5/325 oral tablet 1 tab, PO, Q4H, [...] based on the clinical recommendations of the [place] [employer].6Interpretive Data: Reference Ranges : 0 - 7 days : 41 - 90 mg/dL7 days - 150 yrs : 70 - 99 mg/dL (fasting), based on the clinical recommendations of the [place] [employer].7Interpretive Data : Reference Ranges : 0 - 7 days : 41 - 90 mg/dL7 days - 150 yrs : 70 - 99 mg/dL (fasting), based on the clinical recommendations of the [place] [employer].8Interpretive Data: HbA1C% eAG(mg/dL) Interpretation 6.0 [...] Data: Heparin Therapeutic Range: 57 - 92 [id number] Data: Heparin Therapeutic Range: 57 - 92 [id number] Data: Heparin Therapeutic Range: 57 - 92 Seconds Microbiology Reports PROCEDURE:Culture: Resistant Acinetobacter Screen STATUS: Auth (Verified) BODY SITE: ?? COLLECTED DATE/TIME: 01/23/2011 05:00:00 SOURCE: Throat FREE TEXT SOURCE: swab FINAL REPORTS Final ReportNo Acinetobacter IsolatedPRELIMINARY REPORTS Preliminary ReportCulture In Progress
--- OUTSIDE RECORDS SUMMARY | 2018-12-24 10:58 | XMS REPORT | CCD ---
:1945 Author Organization [facility] Care Team Providers Name Role Phone [...] Consulting Provider Unavailable Elke Feliz Consulting Provider [phone] Chepe Knott Consulting Provider Unavailable Solange Rizvi [...] Consulting Provider Unavailable Wale Becerra Consulting Provider [phone] Kasi Chavez Consulting Provider Unavailable Linnea Villaseñor Consulting Provider [phone] Navya Zamora Consulting Provider Unavailable Luther Vang Referring Provider Unavailable Linda Pace Consulting Provider Darcy Aleman Consulting Provider Mike Zeng Consulting Provider Unavailable Octavio Wu Consulting Provider Unavailable Molly Brown Consulting Provider Unavailable Estefania Demarco Consulting Provider Unavailable Lisandro Gonzales Consulting Provider Unavailable Elvis Dhillon Consulting Provider Unavailable Nila Navarro Consulting Provider Unavailable Mauricio Reyes Consulting Provider [phone] Renetta Garsia Consulting Provider Unavailable Sherice Carrington Consulting Provider Franci Ely Consulting Provider [phone] Laure Sahu Consulting Provider Rabia Worley Consulting Provider Unavailable Elisabeth Archer Consulting Provider Unavailable Isabel Gonzales Consulting Provider Unavailable Sharon Farley Consulting Provider Unavailable Allen Skaggs Consulting Provider Unavailable Carlitos, Vicky Phi My Consulting Provider Allison Stratton Consulting Provider Unavailable Micha Medellin Consulting Provider Unavailable Ronal Lnaza Consulting Provider [phone] Telma Villasenor Consulting Provider Unavailable Natasha Cheema S Consulting Provider [phone] Gideon Nur Consulting Provider Malia Clemons Consulting Provider Unavailable Jaswant Rizvi Consulting Provider Unavailable Bella Rizvi Consulting Provider [phone] Deb Bazzi Consulting Provider Unavailable Magnolia Holcomb Consulting Provider Valente Chawla Consulting Provider Unavailable Diay Soto Consulting Provider Unavailable Donna Pauldavey Consulting [...] Consulting Provider Unavailable Filippo Jolly Consulting Provider [phone] Maegan Buck Consulting Provider Unavailable Sylvia Fernandez Consulting Provider Unavailable Flora Roberson Consulting Provider Camden Joy Consulting Provider Unavailable Roopa Davis Consulting Provider [phone] Abril Barnett Consulting Provider Noreen Egan Consulting Provider Unavailable Belle Nesbitt Consulting Provider Unavailable Elizabeth Dominguez Consulting Provider Jimmy Da Silva Consulting Provider Unavailable Hayder Mccarthy Consulting Provider Unavailable Shirley Leos Consulting Provider [phone] Genet Thakkar Consulting Provider Omid Daniels Consulting Provider Unavailable Seth Anne Consulting Provider [phone] Katharine Stover Consulting Provider Unavailable Kolby Berumen I Consulting Provider [phone] Jolanta Hernandez Consulting Provider Carlos Becerra Consulting Provider Unavailable AbaCaroline earl Consulting Provider Unavailable Carolina Rajan Consulting Provider Unavailable Sofi Alvarez Consulting Provider Unavailable Raiza Brennan Consulting Provider Unavailable PCP, No Patient Contact Consulting Provider Unavailable Kelvin Dorado Consulting Provider [phone] Chelsea Bunn Consulting Provider Unavailable Chel Schmidt Consulting Provider Jillian Yi Consulting Provider Unavailable Caio Arita Consulting Provider [phone] Erika Steve Consulting Provider [phone] Joseph Mahajan Consulting Provider Unavailable Bonnie Bean Consulting Provider Unavailable Luis Flynn) Gamaliel Consulting Provider [phone] Skyler Maldonado Consulting Provider Unavailable Cassia Cid Consulting Provider Unavailable Estuardo Rey Consulting Provider Unavailable Janice Henley Consulting Provider [phone] Anny Vazquez Consulting Provider Unavailable Juan Ramon Maxwell Consulting Provider Kasi Vang Consulting Provider Unavailable Antionette Rowland Consulting Provider Manasa Mcgarry Consulting Provider Unavailable Christie Lal Consulting Provider Unavailable Tracy Leon Consulting Provider Unavailable Sky Rizvi Consulting Provider Unavailable Jess Alicia Consulting Provider [phone] Lazaro Macias Consulting Provider [phone] Rosa Pablo Consulting Provider Unavailable Vivien Mars Consulting Provider Unavailable Penelope Dunbar Consulting Provider Unavailable Leena Chel A Consulting Provider Unavailable Jessica Giordano Consulting Provider [phone] VladimiritzelNatalie Consulting Provider Unavailable Blas Rg Consulting Provider Keagan Khan Consulting Provider Monico Lanza Consulting Provider Luis Hair Consulting Provider Artem Soto Consulting Provider Unavailable Alvin Strickland Consulting Provider Xochilt Mccullough Consulting Provider Unavailable Otilio Stepehns Consulting Provider Unavailable Mack Arellano Consulting Provider [...] IVPB, Drug 01/24/2011 01/27/2011 Discontinued form: INJ, [id number], Start date: 01/24/11 9:00:00, Duration: 30 day, [...] 30 01/23/2011 ?? Suspended tab, Substitution Allowed [place] Thyroid 120 mg oral 1 tab, PO, [...] Duration: 30 day, Stop date: 02/23/11 9:00:00 [place] 5/325 oral tablet 1 tab, Route: PO, [...] mg, 1 supp, Route: 01/23/2011 01/31/2011 Discontinued [place], Drug form: SUPP, Daily, PRN Constipation, Start [...] 10 mg rectal 10 mg, 1 supp, [place], 01/31/2011 ?? Suspended suppository Daily, PRN, 60 supp, Constipation, Substitution Allowed, SUPP [place] 5/325 oral tablet 1 tab, PO, Q4H, [...] based on the clinical recommendations of the [place] [employer].6Interpretive Data: Reference Ranges : 0 - 7 days : 41 - 90 mg/dL7 days - 150 yrs : 70 - 99 mg/dL (fasting), based on the clinical recommendations of the [place] [employer].7Interpretive Data : Reference Ranges : 0 - 7 days : 41 - 90 mg/dL7 days - 150 yrs : 70 - 99 mg/dL (fasting), based on the clinical recommendations of the [place] [employer].8Interpretive Data: HbA1C% eAG(mg/dL) Interpretation 6.0 [...] Data: Heparin Therapeutic Range: 57 - 92 [id number] Data: Heparin Therapeutic Range: 57 - 92 [id number] Data: Heparin Therapeutic Range: 57 - 92 Seconds Microbiology Reports PROCEDURE:Culture: Resistant Acinetobacter Screen STATUS: Auth (Verified) BODY SITE: ?? COLLECTED DATE/TIME: 01/23/2011 05:00:00 SOURCE: Throat FREE TEXT SOURCE: swab FINAL REPORTS Final ReportNo Acinetobacter IsolatedPRELIMINARY REPORTS Preliminary ReportCulture In Progress
--- OUTSIDE RECORDS SUMMARY | 2018-12-24 10:59 | XMS REPORT | CCD ---
:1945 Author Organization [facility] Care Team Providers Name Role Phone JOSUÉ Simon Consulting Provider Unavailable Hattie Marin Consulting Provider Unavailable Moise Morelos Consulting Provider Unavailable Sharon Kimbrough Consulting Provider Unavailable Alexandre Skaggs Consulting Provider Unavailable June Mares Consulting Provider Héctor Craig Consulting Provider Unavailable Katia Borrego Consulting Provider Unavailable Zonia Chaves Consulting Provider Unavailable Ronald Hernandes Consulting Provider Unavailable Antionette Soto Consulting Provider [phone] Camden Dunbar Consulting Provider Keagan Carbajal Consulting [...] Consulting Provider Unavailable Cm Junior Consulting Provider [phone] Dominick Armstrong Consulting Provider Unavailable Qi Carter Consulting Provider Unavailable Adarsh Morales Consulting Provider Unavailable Stephanie Ely Consulting Provider Unavailable Alyx Turner Consulting Provider Unavailable Capri Whitfield Consulting Provider Unavailable Amanda Truogn I Consulting Provider Unavailable Alyx Brand Consulting Provider Unavailable June Demarco Consulting Provider Unavailable Marilin Allen Consulting Provider Unavailable Cong Ceron Jr Consulting Provider [phone] Janice Salinas Consulting Provider Unavailable Casandra Caceres Consulting Provider Unavailable Jessica Ely Consulting Provider [phone] Skyler Luciano Consulting Provider Unavailable Alyx Hansen [...] Consulting Provider [phone] Fransisca Gallo Consulting Provider [phone] Norah Donald Consulting Provider Unavailable Emilia Pearson [...] Consulting Provider Unavailable Tavia Villalba Consulting Provider [phone] Yany Trinidad Consulting Provider Unavailable Liberty Wei Consulting Provider Unavailable Eliazar Howe Consulting Provider Unavailable Kevin Devi Consulting Provider John Wadsworth Consulting Provider Caroline Abreu Consulting Provider Unavailable Sanchez Jackson Consulting Provider [phone] Amol Olivarez Consulting Provider Unavailable Lam Flynn [...] Provider Unavailable Luis Flynn) Gamaliel Consulting Provider [phone] Skyler Maldonado Consulting Provider Unavailable Lulu Fu Consulting Provider [phone] Marley Villarreal Consulting Provider Unavailable Tita Connelly Consulting Provider [phone] Radha Merrill Consulting Provider Unavailable Sky Rizvi Consulting Provider Unavailable Linda Morejon Consulting Provider Neris Wolff Consulting Provider Unavailable Jessica Giordano Consulting Provider [phone] Nel Gilmoer Consulting Provider Dean, Fide B Consulting Provider [...] IVPB, Drug 02/19/2011 02/19/2011 Discontinued form: INJ, [id number], Start date: 02/19/11 14:00:00, Duration: 30 day, Stop date: 03/21/11 2:00:00 [place] 5/325 oral tablet 1 tab, Route: PO, Drug 01/31/2011 02/19/2011 Discontinued Form: TAB, Q4H, PRN as needed for pain, Start date: 01/31/11 14:56:00, Duration: 30 day, Stop date: 03/02/11 14:55:00 [place] Enema 133 ml, Route: CO, Drug 02/10/2011 02/10/2011 Completed Form: JEANNIE, ONCE, Start date: 02/10/11 14:15:00, Stop date: 02/10/11 14:15:00 bisacodyl 10 mg, 1 supp, Route: 02/10/2011 02/10/2011 Completed [place], Drug form: SUPP, ONCE, Start date: 02/10/11 [...] Duration: 30 day, Stop date: 03/07/11 17:00:00 [place] Thyroid 120 mg, 2 tab, Route: 02/01/2011 02/19/2011 Discontinued PO, Drug form: TAB, Daily, Start date: 02/01/11 9:00:00, Duration: 30 day, Stop date: 03/02/11 9:00:00 hydrALAZINE 25 mg oral 25 mg, 1 tab, PO, BID, 02/18/2011 ?? Ordered tablet 60 tab, Substitution Allowed, TAB bisacodyl 10 mg rectal 10 mg, 1 supp, [place], 02/18/2011 ?? Ordered suppository Bedtime, PRN, 30 supp, Constipation, Substitution Allowed, SUPP [place] 5/325 oral tablet 1 tab, PO, Q4H, PRN, 30 02/18/2011 ?? Ordered tab, as needed for pain, Substitution Allowed, Maintenance, TAB [place] Thyroid 120 mg oral 120 mg, 1 tab, PO, 02/18/2011 ?? Ordered tablet Daily, 30 tab, Substitution Allowed, TAB Crest[place] 20 mg oral tablet 20 mg, 1 tab, PO, Daily, 02/18/2011 ?? Ordered 30 tab, Substitution Allowed, TAB bisacodyl 10 mg, Route: CO, Drug 01/31/2011 01/31/2011 Discontinued form: SUPP, Daily, [...] mg, 1 supp, Route: 01/31/2011 02/19/2011 Discontinued [place], Drug form: SUPP, Bedtime, PRN Constipation, Start [...] based on the clinical recommendations of the [place] [employer].9Interpretive Data: Reference Ranges : 0 - 7 days : 41 - 90 mg/dL7 days - 150 yrs : 70 - 99 mg/dL (fasting), based on the clinical recommendations of the [place] [employer].10Interpretive Data: Reference Ranges : 0 - 7 days : 41 - 90 mg /dL7 days - 150 yrs : 70 - 99 mg/dL (fasting), based on the clinical recommendations of the [place] [employer].HEMATOLOGY Most recent to oldest 1 [...] SOURCE: Tissue FREE TEXT SOURCE: [place] [address], skin tissue , cup PRELIMINARY REPORTS Preliminary ReportNo Growth At 1 DaySTAIN REPORTS Stain ReportNo Wbc'S; No Organisms Seen Phone Report Made To: [place] ([place] [id number]) 02/19/2011 12:42:27 Read Back Ok PROCEDURE: Culture: Urine STATUS: Auth (Verified) BODY SITE: ?? COLLECTED DATE/TIME: 02/02/2011 18:00:00 SOURCE: Urine, Catheterized FREE TEXT SOURCE: short cup FINAL REPORTS Final Moncep2346-63,000/Ml Escherichia coli 1000-10, 000/Ml Klebsiella pneumoniae ssp pneumoniaePRELIMINARY REPORTS Preliminary Cfexhj1327-68,000/Ml Gram Negative Rods, Lactose Fermenters , 2 [place] Types Preliminary Ohgxxi3074-28,000/Ml Gram Negative Rods, Lactose Fermenters 1000-10,000/Ml Gram [...]
--- OUTSIDE RECORDS SUMMARY | 2018-12-24 11:00 | XMS REPORT | CCD ---
:1945 Author Organization [facility] Care Team Providers Name Role Phone [...] Consulting Provider Unavailable Lulu Nicole Consulting Provider [phone] Linnea Villaseñor Consulting Provider [phone] Burak Chen Consulting Provider Unavailable Rabia Luther [...] [place] Consulting Provider Fransisca Gallo Consulting Provider [phone] Amanda Marin Consulting Provider Unavailable Cira Archuleta [...] Consulting Provider Unavailable Tavia Villalba Consulting Provider [phone] Elvi Whatley Consulting Provider Unavailable Liberty Wei Consulting Provider Unavailable Tami Graham Consulting Provider Unavailable Belle Nesbitt Consulting Provider Unavailable Claudy Salazar Consulting Provider Unavailable Yennifer Mcdermott Consulting Provider [phone] Shirley Leos Consulting Provider [phone] Diamante Lubin Consulting Provider Jolanta Hernandez Consulting Provider Caroline Abreu Consulting Provider Unavailable Ena Rivera Consulting Provider Unavailable Estefania Vazquez Consulting Provider Unavailable Raiza Brennan Consulting Provider Unavailable Chelsea Bunn Consulting Provider Unavailable Chel Schmidt Consulting Provider Dayna Oviedo Consulting Provider [phone] Ricky Cordova Consulting Provider Unavailable Angie Holland Consulting Provider Unavailable Starr Reece Consulting Provider Joe Meléndez Consulting Provider Unavailable Isaiah Herman Consulting Provider Unavailable Slime Salguero Consulting Provider Unavailable Luis Flynn (Bladimir) Gamaliel Consulting Provider [phone] Skyler Maldonado Consulting Provider Unavailable Marley Villarreal Consulting Provider Unavailable Susan Wadsworth Consulting Provider Manasa Mcgarry Consulting Provider Unavailable Albaro White Consulting Provider Unavailable Sky Rizvi Consulting Provider Unavailable Reagan Lloyd Consulting Provider Carlos Galvan Consulting Provider Unavailable Jessica Giordano Consulting Provider [phone] Natalie Bell Consulting Provider Unavailable Blas Rg Consulting Provider Keagan Khan Consulting Provider Eze Orourke (Edy) Consulting Provider [phone] Meena Alan Consulting Provider Alvin Strickland Consulting [...] 02/19/2011 02/20/2011 Discontinued IVPB, Drug form: INJ, [id number], Priority: NOW, Start date: 02/19/11 16:10:00, Duration: [...] 03/03/11 9:00:00 [place] En[place] 133 ml, Route: [place], Drug 02/24/2011 02/24/2011 Completed Form: JEANNIE, ONCE, Start date: 02/24/11 14:38:00, Stop date: 02/24/11 14:38:00 bisacodyl 10 mg, 1 supp, Route: 02/24/2011 02/24/2011 Completed [place], Drug form: SUPP, ONCE, Start date: 02/24/11 [...] date: 02/20/11 17:00:00, Stop date: 03/22/11 9:00:00 [place] 7.5/325 oral tablet 1 tab, Route: PO, Drug 02/20/2011 02/26/2011 Discontinued Form: TAB, Q4H, PRN Pain, Start date: 02/20/11 11:07:00, Duration: 30 day, Stop date: 03/22/11 11:06:00 Tylenol 650 mg, 2 tab, Route: 02/19/2011 02/20/2011 Discontinued PO, Drug form: TAB, Q4H, PRN Fever, Start date: 02/19/11 21:13:00, Duration: 30 day, Stop date: 03/21/11 21:12:00 [place] 5/325 oral tablet 1 tab, Route: PO, Drug 02/19/2011 02/26/2011 Discontinued Form: TAB, Q4H, PRN Pain, Start date: 02/19/11 16:14:00, Duration: 30 day, Stop date: 03/21/11 16:13:00 [place] Thyroid 120 mg, 2 tab, Route: 02/20/2011 [...] date: 02/24/11 13:03:00, Stop date: 02/24/11 13:03:00 [place] Thyroid 60 mg oral 120 mg, 2 [...] based on the clinical recommendations of the [place] [employer].5Interpretive Data: Reference Ranges : 0 - 7 days : 41 - 90 mg/dL7 days - 150 yrs : 70 - 99 mg/dL (fasting), based on the clinical recommendations of the [place] [employer].6Interpretive Data : Reference Ranges : 0 - 7 days : 41 - 90 mg/dL7 days - 150 yrs : 70 - 99 mg/dL (fasting), based on the clinical recommendations of the [place] [employer].HEMATOLOGY Most recent to oldest 1 [...] Tissue FREE TEXT S[place]: [place] [address], CUP FINAL REPORTS Final ReportFew Pseudomonas aeruginosaPRELIMINARY [...] SOURCE: CSF FREE TEXT SOURCE: [place] [address]. cup FINAL REPORTS Final ReportNo Growth At 3 DaysPRELIMINARY REPORTS* Preliminary ReportNo Growth At 1 Day Preliminary ReportNo Growth At 2 DaysSTAIN REPORTS Stain ReportRare Wbc'S; No Organisms Seen
--- OUTSIDE RECORDS SUMMARY | 2018-12-24 11:00 | XMS REPORT | CCD ---
:1945 Author Organization [facility] Care Team Providers Name Role Phone JOSUÉ Simon Consulting Provider Unavailable Moise Morelos Consulting Provider Unavailable Sharon Kimbrough Consulting Provider Unavailable Leoncio Singleton Consulting Provider Unavailable June Mares Consulting Provider Katia Borrego Consulting Provider Unavailable Chaitanya Crowe Consulting Provider Brigitte cAevedo Consulting Provider Jessica Dotson Consulting Provider Darlene Christie Consulting Provider Unavailable Jessica Corey Consulting Provider [phone] Deepika Patel Consulting Provider Unavailable Aissatou Bowman Consulting Provider Simran Wagoner Consulting Provider Unavailable Yulissa Quintero Consulting Provider Unavailable Franci Lange Consulting Provider Елена Georges Consulting Provider Unavailable Isela Herman Consulting Provider Unavailable Anny Bladwin Consulting Provider [phone] Lauren Fang Consulting Provider Unavailable Octavio Wu Consulting Provider Unavailable Kennedi Dunbar Consulting Provider Unavailable Cm Junior Consulting Provider [phone] Sylvia Aguilar Consulting Provider Unavailable Stephanie Ely Consulting Provider Unavailable June Demarco Consulting Provider Unavailable Casi Soto Consulting Provider Unavailable Casandra Caceres Consulting Provider Unavailable Zaynab Mirza Consulting Provider Unavailable Jaswant Rizvi Consulting Provider Unavailable Radha Soto Consulting Provider Unavailable Breanna Jung Consulting Provider Unavailable Katie Christianson Consulting Provider Val Walker Consulting Provider Gemma Brizuela Consulting Provider [id number] Fransisca Gallo Consulting Provider [phone] Norah Donald Consulting Provider Unavailable Emilia Pearson [...] Consulting Provider Unavailable Lulu Fu Consulting Provider [phone] Marley Villarreal Consulting Provider Unavailable Radha Merrill [...] Nausea & Vomiting, Start date: 02/26/11 17:39:00 [place] Thyroid 120 mg, 2 tab, Route: 02/27/2011 [...] Duration: 30 day, Stop date: 03/28/11 10:00:00 [place] 5/325 oral tablet 1 tab, Route: PO, [...] Duration: 30 day, Stop date: 03/28/11 21:00:00 [place] 7.5/325 oral tablet 1 tab, Route: PO, [...] tablet Bedtime, 40 tab, Substitution Allowed, TAB [place] 5/325 oral tablet 1 tab, PO, Q4H, PRN, 40 03/06/2011 ?? Ordered tab, Pain, Substitution Allowed, Maintenance, TAB Novolin N 100 units/mL 10 unit, SUB-Q, BID, 10 03/06/2011 ?? Ordered subcutaneous injection ml, Substitution Allowed, SUSP [place] Thyroid 60 mg oral 120 mg, 2 [...] based on the clinical recommendations of the [place] [employer].6Interpretive Data: Reference Ranges : 0 - 7 days : 41 - 90 mg/ dL7 days - 150 yrs : 70 - 99 mg/dL (fasting), based on the clinical recommendations of the [place] [employer].HEMATOLOGY Most recent to oldest 1 [...]
--- OUTSIDE RECORDS SUMMARY | 2018-12-24 11:01 | XMS REPORT | CCD ---
:1945 Author Organization [facility] Care Team Providers Name Role Phone [...] Consulting Provider Unavailable Marshall Funk Consulting Provider [phone] Katie Christianson Consulting Provider Breanna Blackmon Consulting Provider Mahendra Rowley Consulting Provider Unavailable SYSTEM, SYSTEM Consulting Provider Unavailable Estefania Zarate Consulting Provider Unavailable Mercy Arita Consulting Provider Sammi Rizvi Consulting Provider Sary Drake Consulting Provider Jesus Franklin Consulting Provider [phone] Reese Wadsworth Consulting Provider Unavailable Jacki Wadsworth [...] Medication Instructions Start Date End Date Status [place] 5/325 oral tablet 1 tab, Route: PO, [...] Duration: 30 day, Stop date: 04/12/11 21:00:00 [place] Thyroid 120 mg, 2 tab, Route: 03/14/2011 [...] 03/14/2011 03/15/2011 Discontinued PO, Drug form: TAB, [id number], Start date: 03/14/11 7:00:00, Duration: 30 day, [...] Seen] Slight 50 ? (03/14/2011 01:50:00) ?? [place] Cell [>None Seen] Slight 51 ? *ABN* [...]
--- OUTSIDE RECORDS SUMMARY | 2018-12-24 11:01 | XMS REPORT ---
:1945 Author Organization [facility] Address [address] [place] [address] Dr. Tillman [address] [place] [address] Care Team Providers Name Role Phone RUMA SANTANA Unavailable Unavailable Problems This patient has no known problems. Allergies, Adverse Reactions, Alerts This patient has no known allergies or adverse reactions. Medications This patient has no known medications. Encounters Start End Encounter Admission Attending Care Care Encounter Date/Time Date/Time Type Type Clinicians Facility Department ID 2018-08-16 Inpatient E [facility] [id number] 23:35:00 2018-11-29 2018-11-29 Emergency E [facility] [id number] 07:33:00 07:33:00 2018-09-21 2018-09-21 Outpatient U [facility] [id number] 18:06:00 18:06:00 2018-09-12 2018-09-10 Inpatient U [facility] [id number] 15:01:00 00:20:00 2018-09-09 2018-09-08 Inpatient U [facility] [id number] 11:57:00 09:51:00 Results Test Description Test Time Test Comments Text Results Atomic Results Result Comments TISSUE EXAM 2017-02-26 15:21:00 Surgical Pathology Report Case: [id number] Authorizing Provider: Ruma Santana MD Collected: 02/24/2017 1559 Ordering Location: [facility] Received: 02/25/2017 0810 Pathologist: [...] SERRATED POLYP/ADENOMA Signing Pathologist Direct Phone Line: [phone] signed by Kenji Hercules MD on 02/26/2017 at 3:21 [id number] x 3Diarrhea, rule out microscopic colitisA. Right/ascending [...] (BEAKER) (test 144 mg/dL 70-110 TESTED AT [address] nyux=[id number]) [facility] [id number] POCT-GLUCOSE [id number] 14:21:00 Test Item Value Reference Range Comments POC-GLUCOSE METER (BEAKER) 118 mg/dL 70-110 TESTED AT [address] (test vsjh=[id number]) [place] [id number]
--- OUTSIDE RECORDS SUMMARY | 2018-12-24 11:01 | XMS REPORT | CCD ---
:[address] [facility] Care Team Providers Name Role Phone Kasi Moses Consulting Provider Unavailable JOSUÉ Simon Consulting Provider Unavailable Yoandy Wellington Consulting Provider Sharon Kimbrough Consulting Provider Unavailable Abby Olivia Consulting Provider [phone] Rossana Gomes Consulting Provider Ronald Hernandes Consulting Provider Unavailable Geovanni Navarrete Consulting Provider Unavailable Shirley Davis Consulting Provider Unavailable Breanna Pelayo Consulting Provider Unavailable Garth Salinas Consulting Provider Unavailable Mari Henning Consulting Provider Unavailable Kelly Mcintosh Consulting Provider Rashaad Whitley Consulting Provider Unavailable Vasyl Pickett Consulting Provider Ramos Fuentes Consulting Provider Brittany Viveros Consulting Provider Unavailable Loil Kate Consulting Provider Unavailable Sharon Bradley Consulting Provider Unavailable Nyasia Mcdaniels Consulting Provider Unavailable Carolina Elder Consulting Provider Unavailable Emily Stout Consulting Provider Unavailable ChartSarcenio, Login Consulting Provider Unavailable Kira Sharpe Consulting Provider [phone] Eduardo Gallo Consulting Provider Odalys Vang Consulting Provider Unavailable Kaela Woods Consulting Provider Unavailable Vicky Urbina My Consulting Provider Michelle Landers Consulting Provider Unavailable Shirley José Consulting Provider Soco Taylor Consulting Provider Unavailable Jaswant Rizvi Consulting Provider Unavailable Deb Bazzi Consulting Provider Unavailable Robert Pritchett Consulting Provider Unavailable Saundra Zambrano Consulting Provider [phone] Do, Sa D Consulting Provider Erica Soto Consulting Provider Darcy Rosales Consulting Provider Unavailable Martha Dumont Consulting Provider Unavailable Socorro Oakley Consulting Provider Unavailable Mahendra Rowley Consulting Provider Unavailable Idania Antonio Consulting Provider Unavailable Zackery Leos Consulting Provider [phone] SYSTEM, SYSTEM Consulting Provider Unavailable Juan J Clay Consulting Provider Unavailable Andre Palomo Consulting Provider Unavailable Qamar Leos Consulting Provider [phone] Jacki Wadsworth Consulting Provider Unavailable Clari Islas Consulting Provider [id number] Anju Bhatti Consulting Provider Unavailable Caden Dang Consulting Provider Unavailable Liberty Wei Consulting Provider Unavailable Noreen Egan Consulting Provider Unavailable Alicja Ramirez Consulting Provider [id number] Rosanna Barber Consulting Provider [phone] Megha Reyes Consulting Provider Caroline Abreu Consulting Provider Unavailable Carly Wadsworth Consulting Provider Unavailable Layla Ortiz Consulting Provider Unavailable PCP, Pt doesnt Remember Remember Consulting Provider Unavailable Kelvin Dorado Consulting Provider [phone] Sylvia Berg Consulting Provider Unavailable Joe Meléndez [...] Duration: 30 day, Stop date: 04/21/11 9:00:00 [place] Thyroid 120 mg, 2 tab, Route: 03/24/2011 [...] date: 03/23/11 19:12:00, Stop date: 03/23/11 19:12:00 [place] 5/325 oral tablet 1 tab, Route: PO, [...] Duration: 30 day, Stop date: 04/20/11 21:00:00 [place] Thyroid 120 mg, 0.5 tab, Route: 03/23/2011 [...] based on the clinical recommendations of the [place] [employer].5Interpretive Data: Reference Ranges : 0 - 7 days : 41 - 90 mg/dL7 days - 150 yrs : 70 - 99 mg/dL (fasting), based on the clinical recommendations of the [place] [employer].6Interpretive Data : Reference Ranges : 0 - 7 days : 41 - 90 mg/dL7 days - 150 yrs : 70 - 99 mg/dL (fasting), based on the clinical recommendations of the [place] [employer].HEMATOLOGY Most recent to oldest 1 [...] to Nyasia Santana will recollect in the [id number] 16:39RG
[2018-12-24] MEDS ORDERED: IPRATROPIUM BROM 0.5MG/2.5ML ONE (11:03)
[2018-12-24] MEDS ORDERED: METHYLPREDNISOLONE 125 MG INJ ONE (11:03)
[2018-12-24] MEDS ORDERED: LEVALBUTEROL 1.25 MG/3 ML NEB ONE ×2 (11:03→15:26)
[2018-12-24 11:13] LABS: Blood Morphology Comment NOT SEEN (NOT SEEN); Platelet Estimate ADEQ
[2018-12-24 11:16] LABS: Albumin 2.7 g/dL (3.4-5.0); Bilirubin Direct 0.3 mg/dL (0-0.2); Bilirubin Total 0.5 mg/dL (0.2-1.0); CKMB Creatine Kinase MB 3.4 ng/mL (0.3-3.6); Protein, Total 7.8 g/dL (6.4-8.2); Troponin (Emerg Dept Use Only) 0.09 ng/mL (0.0-0.045)
--- NOTE | 2018-12-24 11:20 | RAD REPORT ---
EXAM DESCRIPTION: Niru Single View12/24/2018 10:51 am CLINICAL HISTORY: Shortness of breath COMPARISON: December 15, 2018 FINDINGS: The lungs appear clear of acute infiltrate. The heart is mildly enlarged. IMPRESSION: No acute abnormalities displayed
[2018-12-24 11:34] LABS: Protime INR 0.82
--- NOTE | 2018-12-24 11:58 | EDPHYS ---
Physician Documentation [facility] Name: Franci Lange Age: 73 yrs Sex: Female : 1945 Arrival Date: 12/24/2018 Time: 10:14 Bed 2 Private MD: ED Physician Luther Vang HPI: 12/24 10:34 This 73 yrs old Female presents to ER via EMS with complaints of Low Blood augusta Sugar, Breathing Difficulty. 10:34 The patient or guardian reports hypoglycemia. Onset: The symptoms/episode augusta began/occurred just prior to arrival, this morning. Historical: - Allergies: 10:30 Aspirin; ph 10:30 cefepime; ph 10:30 CEPHALOSPORINS; ph 10:30 Ciprofloxacin; ph 10:30 Cortizone-10; ph 10:30 PENICILLINS; ph 10:30 Phenobarbital; ph - PMHx: 10:30 Diabetes - IDDM; Myocardial infarction; Hypothyroidism; CHF; Myasthenia Gravis; ph Depression; - PSHx: 10:30 brain; ph - Immunization history:: Adult Immunizations unknown. - Social history:: Smoking status: Patient/guardian denies using tobacco. - Ebola Screening: : No symptoms or risks identified at this time. ROS: 10:34 Constitutional: Negative for fever, chills, and weight loss, Eyes: Negative for injury, [place] pain, redness, and discharge, ENT: Negative for injury, pain, and discharge, Neck: Negative for injury, pain, and swelling, Cardiovascular: Negative for chest pain, palpitations, and edema, Back: Negative for injury and pain, : Negative for injury, bleeding, discharge, and swelling, Skin: Negative for injury, rash, and discoloration, Neuro: Negative for headache, weakness, numbness, tingling, and seizure, Psych: Negative for depression, anxiety, suicide ideation, homicidal ideation, and hallucinations, Allergy/Immunology: Negative for hives, rash, and allergies, Endocrine: Negative for neck swelling, polydipsia, polyuria, polyphagia, and marked weight changes, Hematologic/Lymphatic: Negative for swollen nodes, abnormal bleeding, and unusual bruising. 10:34 Cardiovascular: Positive for palpitations, Negative for chest pain. 10:34 Respiratory: Positive for cough, shortness of breath, wheezing, expiratory. 10:34 Abdomen/GI: Positive for abdominal distension. 10:34 MS/extremity: Positive for swelling, of the right leg and left leg. Exam: 10:34 Constitutional: This is a well developed, well nourished patient who is awake, alert, aug[place] and in no acute distress. Head/Face: Normocephalic, atraumatic. Eyes: Pupils equal round and reactive to light, extra-ocular motions intact. Lids and lashes normal. Conjunctiva and sclera are non-icteric and not injected. Cornea within normal limits. Periorbital areas with no swelling, redness, or edema. ENT: Nares patent. No nasal discharge, no septal abnormalities noted. Tympanic membranes are normal and external auditory canals are clear. Oropharynx with no redness, swelling, or masses, exudates, or evidence of obstruction, uvula midline. Mucous membranes moist. Neck: Trachea midline, no thyromegaly or masses palpated, and no cervical lymphadenopathy. Supple, full range of motion without nuchal rigidity, or vertebral point tenderness. No Meningismus. Chest/axilla: Normal chest wall appearance and motion. Nontender with no deformity. No lesions are appreciated. Cardiovascular: Regular rate and rhythm with a normal S1 and S2. No gallops, murmurs, or rubs. Normal PMI, no JVD. No pulse deficits. Back: No spinal tenderness. No costovertebral tenderness. Full range of motion. MS/ Extremity: Pulses equal, no cyanosis. Neurovascular intact. Full, normal range of motion. Neuro: Awake and alert, GCS 15, oriented to person, place, time, and situation. Cranial nerves II-XII grossly intact. Motor strength 5/5 in all extremities. Sensory grossly intact. Cerebellar exam normal. Normal gait. Psych: Awake, alert, with orientation to person, place and time. Behavior, mood, and affect are within normal limits. 10:34 Respiratory: mild respiratory distress is noted, Respirations: labored breathing, prolonged exhalation, Breath sounds: decreased breath sounds, that are mild, rhonchi, that are mild, that are moderate, are heard diffusely, are heard in the left posterior upper lobe, right posterior upper lobe, left posterior lower lobe, right posterior middle lobe and right posterior lower lobe, Respiratory rate: 22 Vital Signs: 10:19 BP 109 / 91; Pulse 76; Resp 20; Pulse Ox 95% on BiPAP; ph 11:05 BP 124 / 45; Pulse 63; Resp 22; Temp 96.7(TE); Pulse Ox 98% on BiPAP; Weight 102.06 kg; ph 12:30 BP 128 / 43; Pulse 69; Resp 24; Pulse Ox 94% on 40% BiPAP; ph 13:13 BP 146 / 67; Pulse 75; Resp 22; Temp 97.0; Pulse Ox 93% on 40% BiPAP; ph 14:00 BP 138 / 70; Pulse 73; Resp 26; Pulse Ox 95% on BiPAP; sv 15:00 BP 133 / 68; Pulse 88; Resp 26; Pulse Ox 96% on BiPAP; sv 15:52 BP 123 / 52; Pulse 124; Resp 39; Pulse Ox 95% on 100% BiPAP; sv 16:20 BP 89 / 41; Pulse 119; Resp 23; Pulse Ox 94% on 15 lpm ETT ambu; ph 16:40 BP 85 / 38; Pulse 105; Resp 22; Pulse Ox 95% on 100% FiO2 ETT vent; ph 17:00 BP 114 / 50; Pulse 99; Resp 22; Temp 97.0; Pulse Ox 94% on ETT vent; ph Procedures: 16:18 Intubation: Ventilated with 100% NRB prior to procedure. Intubated orally using # 3 augusta Kiesha blade with 8.0 mm ETT. was successful on first attempt. Ventilated with Ambu bag. ventilator. Cricoid pressure applied during procedure. Tube secured with ETT sams Placement verified by CXR, CO2 detector with (+) color change, auscultating bilateral breath sounds, Patient tolerated well. Central Line: the site was prepped with Betadine, in sterile fashion, a triple lumen catheter was inserted, in the right in 1 attempts. placement was verified, by blood return, the site was dressed with using sterile technique, the patient tolerated the procedure, well. MDM: 10:21 Patient medically screened. [facility] 10:39 Data reviewed: vital signs, nurses notes, lab test result(s), EKG, radiologic studies, [facility] doppler, MRI, ultrasound, . 12/24 10:25 Order name: Basic Metabolic Panel; Complete Time: 11:44 12/24 10:25 Order name: Blood Culture Adult (2) 12/24 10:25 Order name: CBC with Diff 12/24 10:25 Order name: Ckmb; Complete Time: 11:44 sv 12/24 10:25 Order name: CPK; Complete Time: 11:44 sv 12/24 10:25 Order name: Lactate; Complete Time: 11:59 12/24 10:25 Order name: LFT's; Complete Time: 11:44 12/24 10:25 Order name: Lipase; Complete Time: 11:44 12/24 10:25 Order name: Procalcitonin; Complete Time: 11:44 sv 12/24 10:25 Order name: Protime (+inr); Complete Time: 11:44 12/24 10:25 Order name: Ptt, Activated; Complete Time: 11:44 sv 12/24 10:25 Order name: Troponin (emerg Dept Use Only); Complete Time: 11:44 12/24 10:33 Order name: TSH; Complete Time: 15:52 [facility] 12/24 10:25 Order name: Chest Single View XRAY; Complete Time: 11:44 sv 12/24 10:33 Order name: BNP; Complete Time: 15:52 [facility] 12/24 10:33 Order name: glucometer results - FOR PT WITH NO ID ph 12/24 10:33 Order name: glucometer results - FOR PT WITH NO ID ph 12/24 10:33 Order name: ABG [facility] 12/24 11:15 Order name: Manual Differential; Complete Time: 11:44 EDMS 12/24 16:17 Order name: Chest Single View XRAY; Complete Time: 16:57 [facility] 12/24 10:25 Order name: Accucheck; Complete Time: 10:26 sv 12/24 10:25 Order name: Cardiac monitoring; Complete Time: 11:07 12/24 10:25 Order name: EKG - Nurse/Tech; Complete Time: 10:25 12/24 10:25 Order name: IV Saline Lock - Large Bore; Complete Time: 10:25 sv 12/24 10:25 Order name: Labs collected and sent; Complete Time: 10:32 12/24 10:25 Order name: O2 Per Protocol; Complete Time: 10:25 12/24 10:25 Order name: O2 Sat Monitoring; Complete Time: 10:25 12/24 10:25 Order name: Urine Dipstick-Ancillary (obtain specimen); Complete Time: 17:03 12/24 10:56 Order name: Labs - recollect needed: Lactate, PTT; Complete Time: 11:19 iw 12/24 12:02 Order name: IV Saline Lock - Large Bore; Complete Time: 13:13 [place] 12/24 12:50 Order name: EKG Electrocardiogram EDNE 12/24 15:03 Order name: Zoe; Complete Time: 17:03 [facility] Administered Medications: 10:32 Drug: D50W 50 ml Route: IVP; Site: left antecubital; ph 11:05 Follow up: Response: No adverse reaction; Blood sugar is elevated ph 11:04 Drug: Xopenex 3.75 mg Route: Inhalation; ph 12:25 Follow up: Response: No adverse reaction ph 12:26 Follow up: Response: No adverse reaction ph 11:04 Drug: AtroVENT Aerosol 0.5 mg Route: Inhalation; ph 12:26 Follow up: Response: No adverse reaction ph 11:05 Drug: SOLU-Medrol 125 mg Route: IVP; Site: left antecubital; ph 11:51 Follow up: Response: No adverse reaction sv 12:25 Follow up: Response: No adverse reaction ph 12:25 Drug: Potassium Chloride 20 mEq Route: IV; Rate: per protocol; Site: left antecubital; ph 13:11 Follow up: IV Status: Infusion continued upon transfer; IV SiteChange: right ph antecubital; IV SiteChange Reason: Infiltration 15:00 Follow up: Response: No adverse reaction; IV Status: Completed infusion ph 12:25 Drug: D5-1/2 NS with KCl 20 mEq/L 1000 ml Route: IV; Rate: 100 ml/hr; Site: left ph antecubital; 13:12 Follow up: IV Status: Infusion continued upon transfer; IV SiteChange: right ph antecubital; IV SiteChange Reason: Infiltration 17:00 Follow up: Response: No adverse reaction; IV Status: Infusion continued upon transfer ph 13:12 Drug: Azactam 1 grams Route: IVPB; Infused Over: 30 mins; Site: right antecubital; ph 13:45 Follow up: Response: No adverse reaction; IV Status: Completed infusion ph 14:56 Drug: vancoMYCIN 1 grams Route: IVPB; Infused Over: 2 hrs; Site: right antecubital; ph 17:00 Follow up: Response: No adverse reaction; IV Status: Infusion continued upon transfer ph 15:12 Drug: Xopenex 2.5 mg Route: Inhalation; ca1 15:30 Follow up: Response: No adverse reaction ph 15:12 Drug: Decadron - Dexamethasone 10 mg Route: IVP; Site: right antecubital; ca1 15:30 Follow up: Response: No adverse reaction ph 15:40 Drug: Ativan 1 mg Route: IVP; Site: right antecubital; ph 16:00 Follow up: Response: No adverse reaction ph 16:00 Drug: Ativan 1 mg Route: IVP; Site: right antecubital; ph 16:15 Follow up: Response: No adverse reaction ph 16:10 Drug: Versed 6 mg Route: IVP; Site: right femoral; ph 16:20 Follow up: Response: No adverse reaction; Patient is sedated ph 16:11 Drug: Etomidate 20 mg Route: IVP; Site: right femoral; ph 16:20 Follow up: Response: No adverse reaction; Patient is sedated ph 16:11 Drug: Succinylcholine 100 mg Route: IVP; Site: right femoral; ph 16:20 Follow up: Response: No adverse reaction; Patient is sedated ph 16:20 Drug: NS 0.9% 1000 ml Route: IV; Rate: 1 bolus; Site: right femoral; ph 17:00 Follow up: Response: No adverse reaction; IV Status: Completed infusion; IV Intake: ph 1000ml 16:33 Drug: Levophed (4 mg/250 mL D5W 4 mcg/min {Note: 5mcg/min.} Route: IV; Rate: calculated ph rate; Site: right femoral; 17:00 Follow up: Response: No adverse reaction; Blood pressure is elevated; IV Status: ph Infusion continued upon transfer 16:40 Drug: Versed 4 mg Route: IVP; Site: right femoral; ph 17:00 Follow up: Response: No adverse reaction; Patient is sedated ph Point of Care Testing: Blood Glucose: 10:20 Blood Glucose: 55 mg/dL; ph 11:05 Blood Glucose: 161 mg/dL; ph Ranges: Critical Glucose Levels:Adult <50 mg/dl or >400 mg/dl <40 mg/dl or >180 mg/dl Disposition: 12/24/18 11:57 Transfer ordered to [facility]. Diagnosis are Chronic obstructive pulmonary disease with (acute) exacerbation, Elevated white blood cell count, Sepsis, unspecified organism, Myasthenia gravis, Type 1 diabetes mellitus, Hypoglycemia, unspecified, Obesity, unspecified, Hypotension. - Reason for transfer: Higher level of care. - Accepting [place] [place]. - Condition is Fair. - Problem is new. - Symptoms have improved. Signatures: Dispatcher [employer] Sharon Hutchins RN RN sv Anderson, Corey, MD MD cha Williams, Irene, RN RN Alanis Almonte RN RN Acblayne, RENAY Gonzalez RN ca1 Corrections: (The following items were deleted from the chart) 12:07 11:57 12/24/2018 11:57 Transfer ordered to [facility]. [facility] Diagnosis is Chronic obstructive pulmonary disease with (acute) exacerbation; Elevated white blood cell count; Sepsis, unspecified organism; Myasthenia gravis; Type 1 diabetes mellitus; Hypoglycemia, unspecified. Reason for transfer: Higher level of care. Accepting physician is to [facility]. Condition is Fair. Problem is new. Symptoms have improved. [facility] 16:35 12:07 12/24/2018 11:57 Transfer ordered to [facility]. aug[place] Diagnosis is Chronic obstructive pulmonary disease with (acute) exacerbation; Elevated white blood cell count; Sepsis, unspecified organism; Myasthenia gravis; Type 1 diabetes mellitus; Hypoglycemia, unspecified. Reason for transfer: Higher level of care. Accepting physician is to ,[facility] [place]. Condition is Fair. Problem is new. Symptoms have improved. [facility] 17:11 16:35 12/24/2018 11:57 Transfer ordered to [facility]. ph Diagnosis is Chronic obstructive pulmonary disease with (acute) exacerbation; Elevated white blood cell count; Sepsis, unspecified organism; Myasthenia gravis; Type 1 diabetes mellitus; Hypoglycemia, unspecified; Obesity, unspecified; Hypotension. Reason for transfer: Higher level of care. Accepting physician is to ,[facility] [place]. Condition is Fair. Problem is new. Symptoms have improved. augusta
--- NOTE | 2018-12-24 11:58 | ER ---
Nurse's Notes [facility] Name: Franci Lange Age: 73 yrs Sex: Female : 1945 Arrival Date: 12/24/2018 Time: 10:14 Bed 2 Private MD: Diagnosis: Chronic obstructive pulmonary disease with (acute) exacerbation;Elevated white blood cell count;Sepsis, unspecified organism;Myasthenia gravis;Type 1 diabetes mellitus;Hypoglycemia, unspecified;Obesity, unspecified;Hypotension Presentation: 12/24 10:15 Presenting complaint: EMS states: Family reports that pt's BGL was 50, pt only ph responsive to pain upon EMS arrival, BGL 49, Spo2 85% on 6L NC, IV initaited and dextrose administered, last BGL 108, pt also placed on C-PAP, Spo2 improved to 95%. Transition of care: patient was not received from another setting of care. Onset of symptoms was December 24, 2018. Risk Assessment: Do you want to hurt yourself or someone else? Patient reports no desire to harm self or others. Care prior to arrival: IV initiated. 22 GA, in the right forearm, Glucose check: 108 Oxygen administered. via CPAP or BiPAP. 10:15 Method Of Arrival: EMS: [facility] ph 10:15 Acuity: JAY 1 ph 10:15 Initial Sepsis Screen: Does the patient meet any 2 criteria? Altered Mental Status. ph Does the patient have a suspected source of infection? Yes: Productive cough/pneumonia. Historical: - Allergies: 10:30 Aspirin; ph 10:30 cefepime; ph 10:30 CEPHALOSPORINS; ph 10:30 Ciprofloxacin; ph 10:30 Cortizone-10; ph 10:30 PENICILLINS; ph 10:30 Phenobarbital; ph - PMHx: 10:30 Diabetes - IDDM; Myocardial infarction; Hypothyroidism; CHF; Myasthenia Gravis; ph Depression; - PSHx: 10:30 brain; ph - Immunization history:: Adult Immunizations unknown. - Social history:: Smoking status: Patient/guardian denies using tobacco. - Ebola Screening: : No symptoms or risks identified at this time. Screenin:31 Abuse screen: Denies threats or abuse. Denies injuries from another. Nutritional ph screening: No deficits noted. Tuberculosis screening: Tuberculosis screening: No symptoms or risk factors identified. Fall Risk No fall in past 12 months (0 pts). Secondary diagnosis (15 points) Myasthenia Gravis. Assessment: 10:15 General: Appears in no apparent distress. uncomfortable, obese, Behavior is drowsy, ph unresponsive. Pain: Unable to use pain scale. Patient is unresponsive. Neuro: Level of Consciousness is unresponsive, Oriented to none. Cardiovascular: Capillary refill is sluggish Edema is 2+ to right forearm, right wrist, right hand, right fingers, waist, left ankle, left foot, left toes, left forearm, left wrist, left hand, left fingers, right ankle, right foot and right toes Rhythm is sinus rhythm. Respiratory: Airway is patent Respiratory effort is even, shallow, Respiratory pattern is tachypnea Breath sounds are coarse bilaterally. GI: Abdomen is round distended. Derm: Skin is fragile, is thin, Skin is pink, warm \\T\\ dry. multiple wounds and dark purple bruising noted to gretchen arms, legs and feet. Musculoskeletal: Circulation, motion, and sensation intact. 11:30 Reassessment: Patient appears in no apparent distress at this time. Patient and/or ph family updated on plan of care and expected duration. Pain level reassessed. Patient is alert, oriented x 3, equal unlabored respirations, skin warm/dry/pink. Pt resting quietly w/ Bi-Pap in place, family at bedside. 12:30 Reassessment: Patient appears in no apparent distress at this time. No changes from ph previously documented assessment. Patient and/or family updated on plan of care and expected duration. Pain level reassessed. 13:30 Reassessment: Patient appears in no apparent distress at this time. No changes from ph previously documented assessment. Patient and/or family updated on plan of care and expected duration. Pain level reassessed. 14:15 Reassessment: Pt becoming anxious, states, " I can't breath and this mask is hurting, ph Bi-pap removed by Dr Vang and placed on NRB mask, Spo2 92%. 14:45 Reassessment: Pt remains anxious, placed on bedpan for BM w/ assistance, unable to ph urinate or have BM, continues to c/o difficulty breathing, Spo2 noted to have decreased to 88% on NRB mask, Bi-pap placed back on pt, Spo2 increased to 95%. 15:22 Reassessment: Dr. Vang at bedside to set up for central line placement. iw 15:51 Reassessment: Pt remains anxious, unable to follow commands, when asked what is wrong ph pt states, "Shit, shit" Bi-Pap remains in place, Dr Vang to speak w/ family about possible intubation. 15:57 Reassessment: Dr Vang at bedside to intubate. ph 16:30 Reassessment: Patient appears in no apparent distress at this time. Pt intubated and ph placed on ventilator, BP noted to have decreased w/ MAP < 65, ERP notified, verbal order received for Levophed, see JUL. 17:00 Reassessment: Patient appears in no apparent distress at this time. [facility] at bedside, pt transferred to [facility] Neuro ICU. Vital Signs: 10:19 BP 109 / 91; Pulse 76; Resp 20; Pulse Ox 95% on BiPAP; ph 11:05 BP 124 / 45; Pulse 63; Resp 22; Temp 96.7(TE); Pulse Ox 98% on BiPAP; Weight 102.06 kg; ph 12:30 BP 128 / 43; Pulse 69; Resp 24; Pulse Ox 94% on 40% BiPAP; ph 13:13 BP 146 / 67; Pulse 75; Resp 22; Temp 97.0; Pulse Ox 93% on 40% BiPAP; ph 14:00 BP 138 / 70; Pulse 73; Resp 26; Pulse Ox 95% on BiPAP; sv 15:00 BP 133 / 68; Pulse 88; Resp 26; Pulse Ox 96% on BiPAP; sv 15:52 BP 123 / 52; Pulse 124; Resp 39; Pulse Ox 95% on 100% BiPAP; sv 16:20 BP 89 / 41; Pulse 119; Resp 23; Pulse Ox 94% on 15 lpm ETT ambu; ph 16:40 BP 85 / 38; Pulse 105; Resp 22; Pulse Ox 95% on 100% FiO2 ETT vent; ph 17:00 BP 114 / 50; Pulse 99; Resp 22; Temp 97.0; Pulse Ox 94% on ETT vent; ph ED Course: 10:14 Patient arrived in ED. ph 10:19 Triage completed. ph 10:20 Initial lab(s) drawn, by me, sent to lab. First set of blood cultures drawn by me. sv Inserted saline lock: 20 gauge in left antecubital area, using aseptic technique. Blood collected. Flushed left antecubital with 5 ml normal saline. 10:21 Luther Vang MD is Attending Physician. augusta 10:22 ED physician to see patient. sv 10:23 EKG done, by automotive repair technician. reviewed by Luther Vang MD. at1 10:30 Arm band placed on Patient placed in an exam room, on a stretcher, on oxygen, on ph diagnostic cardiac sonographer, on pulse oximetry. 10:33 Patient has correct armband on for positive identification. Bed in low position. Call ph light in reach. Side rails up X2. monitor technician on. Pulse ox on. NIBP on. Door closed. Noise minimized. Warm blanket given. Head of bed elevated. 10:40 Alanis Almonte RN is Primary Nurse. ph 10:48 Chest Single View XRAY In Process Unspecified. EDMS 11:18 Lab(s) recollected, by me, sent to lab. [facility] 11:52 glucometer results - FOR PT WITH NO ID Sent. sv 12:[address] Vang with Amanda from the [place] [address] [facility]. 12:[address] Coy the Neurologist office coordinator receptionist for [facility] with Dr. Vang for [facility] patient transfer consultation. 12:39 administrative approval given by Amanda Austin RN/ patient has been accepted to [address] Neuro ICU 7 [place]/ report to be called to [phone]. 12:45 Inserted saline lock: 22 gauge in right antecubital area, using aseptic technique. ph Patient transferred, IV remains in place. 15:22 Enriquez cath inserted, using sterile technique, 16 Fr., by me, balloon inflated, to iw gravity drainage. 15:30 Assisted provider with central line placement. Set up central line tray. Triple lumen ph line placed in right femoral. Line placed by Luther Vang MD Placement verified by CXR, blood return, Dressed with Tegaderm, Patient tolerated poorly. Before procedure, did Practitioner(s) obtain informed consent? No. Patient \\T\\ family education about procedure, CLABSI prevention and S/S of infection? Yes. Time-out/Briefing performed prior to start of procedure? Yes. Was handwashing/sanitizing done immediately prior to procedure? Yes. Was patient positioned to in a way to prevent air embolism? Yes. Was procedure site sterilized? Yes, with Was the site allowed to dry? Yes. Was local anesthetic and/or sedation utilized? Yes. During the procedure, did the Practitioner(s) maintain a sterile field? Yes. Were unused ports clamped during insertion? Yes. Was a 2nd qualified MD obtained after 3 unsuccessful insertion attempts? No. Was blood aspirated from each lumen? Yes. After the procedure, did the Practitioner(s) clean the site and apply a sterile dressing? Yes. 15:[address] Bowman the Anesthesia doctor office coordinator receptionist and connected with Dr. Vang for eb patient consultation. 16:36 Chest Single View XRAY In Process Unspecified. EDMS Administered Medications: 10:32 Drug: D50W 50 ml Route: IVP; Site: left antecubital; ph 11:05 Follow up: Response: No adverse reaction; Blood sugar is elevated ph 11:04 Drug: Xopenex 3.75 mg Route: Inhalation; ph 12:25 Follow up: Response: No adverse reaction ph 12:26 Follow up: Response: No adverse reaction ph 11:04 Drug: AtroVENT Aerosol 0.5 mg Route: Inhalation; ph 12:26 Follow up: Response: No adverse reaction ph 11:05 Drug: SOLU-Medrol 125 mg Route: IVP; Site: left antecubital; ph 11:51 Follow up: Response: No adverse reaction sv 12:25 Follow up: Response: No adverse reaction ph 12:25 Drug: Potassium Chloride 20 mEq Route: IV; Rate: per protocol; Site: left antecubital; ph 13:11 Follow up: IV Status: Infusion continued upon transfer; IV SiteChange: right ph antecubital; IV SiteChange Reason: Infiltration 15:00 Follow up: Response: No adverse reaction; IV Status: Completed infusion ph 12:25 Drug: D5-1/2 NS with KCl 20 mEq/L 1000 ml Route: IV; Rate: 100 ml/hr; Site: left ph antecubital; 13:12 Follow up: IV Status: Infusion continued upon transfer; IV SiteChange: right ph antecubital; IV SiteChange Reason: Infiltration 17:00 Follow up: Response: No adverse reaction; IV Status: Infusion continued upon transfer ph 13:12 Drug: Azactam 1 grams Route: IVPB; Infused Over: 30 mins; Site: right antecubital; ph 13:45 Follow up: Response: No adverse reaction; IV Status: Completed infusion ph 14:56 Drug: vancoMYCIN 1 grams Route: IVPB; Infused Over: 2 hrs; Site: right antecubital; ph 17:00 Follow up: Response: No adverse reaction; IV Status: Infusion continued upon transfer ph 15:12 Drug: Xopenex 2.5 mg Route: Inhalation; ca1 15:30 Follow up: Response: No adverse reaction ph 15:12 Drug: Decadron - Dexamethasone 10 mg Route: IVP; Site: right antecubital; ca1 15:30 Follow up: Response: No adverse reaction ph 15:40 Drug: Ativan 1 mg Route: IVP; Site: right antecubital; ph 16:00 Follow up: Response: No adverse reaction ph 16:00 Drug: Ativan 1 mg Route: IVP; Site: right antecubital; ph 16:15 Follow up: Response: No adverse reaction ph 16:10 Drug: Versed 6 mg Route: IVP; Site: right femoral; ph 16:20 Follow up: Response: No adverse reaction; Patient is sedated ph 16:11 Drug: Etomidate 20 mg Route: IVP; Site: right femoral; ph 16:20 Follow up: Response: No adverse reaction; Patient is sedated ph 16:11 Drug: Succinylcholine 100 mg Route: IVP; Site: right femoral; ph 16:20 Follow up: Response: No adverse reaction; Patient is sedated ph 16:20 Drug: NS 0.9% 1000 ml Route: IV; Rate: 1 bolus; Site: right femoral; ph 17:00 Follow up: Response: No adverse reaction; IV Status: Completed infusion; IV Intake: ph 1000ml 16:33 Drug: Levophed (4 mg/250 mL D5W 4 mcg/min {Note: 5mcg/min.} Route: IV; Rate: calculated ph rate; Site: right femoral; 17:00 Follow up: Response: No adverse reaction; Blood pressure is elevated; IV Status: ph Infusion continued upon transfer 16:40 Drug: Versed 4 mg Route: IVP; Site: right femoral; ph 17:00 Follow up: Response: No adverse reaction; Patient is sedated ph Point of Care Testing: Blood Glucose: 10:20 Blood Glucose: 55 mg/dL; ph 11:05 Blood Glucose: 161 mg/dL; ph Ranges: Intake: 17:00 IV: 1000ml; Total: 1000ml. ph Outcome: 11:57 ER care complete, transfer ordered by MD. deras 17:11 Patient left the ED. ph 17:11 Transferred by ground EMS [facility]. to [facility], Transfer form ph completed. X-rays sent w/ patient. 17:11 critical Signatures: Dispatcher [employer] Sharon Hutchins RN RN sv Anderson, Corey, MD MD cha Williams, Irene, RN RN Nyasia Orourke, tower loader operator EKG Tat1 Alanis Almonte RN RN Irving, Chel 3 Cira Hodges Cheryl RN RN ca1 Corrections: (The following items were deleted from the chart) 11:25 11:05 BP 124 / 45; Pulse 63bpm; Resp 22bpm; Pulse Ox 98% BiPAP; ph ph
[2018-12-24] MEDS ORDERED: D5.45NS W/KCL 20MEQ 1,000 ML IV ONE (12:22)
[2018-12-24] MEDS ORDERED: KCL 20 MEQ/100 mL IVPB 20 MEQ/100 ML BAG IV ONE (12:23)
[2018-12-24] MEDS ORDERED: AZTREONAM 1 GM in NA CHLORIDE 0.9% 100 ML IV ONE (12:30)
[2018-12-24] MEDS ORDERED: VANCOMYCIN/NS 1 gm 1 GM/250 ML BAG IV ONE (12:30)
--- NOTE | 2018-12-24 13:33 | EKG ---
Test Date: 2018-12-24 Test Time: 10:19:42 Oil Producer: JEFF MEASUREMENT RESULTS: Intervals: Rate: 68 WA: 154 QRSD: 100 QT: 394 QTc: 418 [place]: P: 77 WA: 154 QRS: 65 T: 100 INTERPRETIVE STATEMENTS: Sinus rhythm with occasional premature ventricular complexes Inferior infarct, age undetermined T wave abnormality, consider lateral ischemia Abnormal ECG Compared to ECG 09/07/2018 23:40:09 Ventricular premature complex(es) now present Myocardial infarct finding still present T-wave abnormality still present Electronically Signed On 12-24-18 13:32:34 CDT by Sanchez Demarco
[2018-12-24] MEDS ORDERED: dexAMETHasone 10 MG/ML VIAL ONE (15:26)
[2018-12-24 15:28] LABS: Thyroid Stimulating Hormone 0.532 uIU/mL (0.360-3.740)
[2018-12-24] MEDS ORDERED: LIDOCAINE 1% MPF 30 ML VIAL ONE (15:32)
[2018-12-24] MEDS ORDERED: LORazepam 2 MG/ML VIAL ONE (15:52)
[2018-12-24] MEDS ORDERED: MIDAZOLAM HCL 2 MG/2 ML INJ ONE ×3 (16:05→16:55)
[2018-12-24] MEDS ORDERED: ROCURONIUM 50 MG/5 ML VIAL IV ONE (16:05)
[2018-12-24] MEDS ORDERED: RSI MEDICATION KIT IV ONE (16:05)
[2018-12-24] MEDS ORDERED: NA CHLORIDE 0.9% 1,000 ML ONE (16:34)
--- NOTE | 2018-12-24 16:40 | RAD REPORT ---
EXAM DESCRIPTION: RAD - Chest Single View - 12/24/2018 4:32 pm CLINICAL HISTORY: Cough, dyspnea, intubation COMPARISON: December 24 TECHNIQUE: AP portable chest image was obtained 1626 hours . FINDINGS: Endotracheal tube has been placed. Tip is the T4 level mid aortic arch 2 cm above the jacob na. NG tube extends below the diaphragm well positioned in the stomach Right-sided pulmonary edema pattern is present with central airspace opacification. Similar but less prominent pattern on the left. Prominent left pericardial fat pad seen. Heart size within normal bond its for patient positioning. No acute bony abnormality seen. No acute aortic findings suspected. IMPRESSION: Endotracheal tube in good position with the tip mid aortic arch level. NG tube in good p osition. Central pulmonary edema pattern worse on the right.
[2018-12-24] MEDS ORDERED: NOREPINEPHRINE 4mg/D5W 250mL 4 MG/250 ML BAG IV ONE (16:42)
[2018-12-24 17:24] VITALS: TEMP 97
[2018-12-24 17:31] VITALS: BP 114/50; O2SAT 94
== END 2018-12-24 17:11 | disposition short-term general hospital (02) ==
LOC: ER 10:07
DX: E10.649 Type 1 diabetes mellitus with hypoglycemia without coma (principal); J44.1 Chronic obstructive pulmonary disease with (acute) exacerbation; D72.829 Elevated white blood cell count, unspecified; A41.9 Sepsis, unspecified organism; G70.00 Myasthenia gravis without (acute) exacerbation; I95.9 Hypotension, unspecified; E66.9 Obesity, unspecified
CPT/HCPCS: 96365; 96367; 93005; 87040 ×2; 85025; 80048; 36415; 82550; 85610; 82962 ×3; 80076; 83605; 85730; 84443; 84484; 82553; 83690; 84145; 83880; 71045 ×2; 82805; 94660; 31500; 51702; 96375; 99291; 99292; J0330; J2250 ×3; J1100; J3370; J7030; J2930

== ENCOUNTER 2019-01-10 09:14 | Inpatient (IN) | payer OTHER ==
--- NOTE | 2019-01-10 11:46 | R.PREADM ---
SCREENING DATE AND TIME 01/10/2019 09:42 (CDT) ANTICIPATED REHAB ADMISSION DATE 01/12/2019 REFERRING FACILITY [facility] REFERRAL DATE AND TIME 01/10/2019 09:42 (CDT) ACUTE ADMIT DATE 12/24/2018 Previous Rehabilitation(s): No. REFERRING PHYSICIAN David Macedo REHAB FACILITY [facility] CLINICAL LIAISON Camden Lacey PHYSICIAN REVIEWER Dr. Noam Patricia M.D. [facility]# [id number] [id number] NAME ARNOLD LANGE [address]ESS [address] [facility] [place] [facility] [address] DATE OF 1945 AGE 74 SSN# [id number] GENDER female MARITAL STATUS RACE white ADMIT FROM 02 - [facility] PRE-HOSPITAL LIVING SETTING 01 - Home (private home/apt. board/care, assisted living, chcf, transitional living) HOME TYPE AND DETAILS Type of home: single family house # of steps to enter the residence: 0 # of steps within the residence: 0 # of levels in the residence: 1 PRE-HOSPITAL LIVING WITH Family/Relatives FAMILY SUPPORT Yes PRIMARY FAMILY CONTACT NAME Crispin Lange PRIMARY FAMILY CONTACT PHONE PHONE PRIMARY FAMILY CONTACT ON ADM.? no IS PRIMARY FAMILY CONTACT AUTH. REP.? no 1ST EMERGENCY CONTACT Crispin Lange 1ST CONTACT PHONE PHONE 1ST CONTACT ON ADM. no IS 1ST CONTACT AUTH. REP.? no PHONE 2ND CONTACT ON ADM.? no PATIENT EMPLOYMENT STATUS Retired (for age) PATIENT EMPLOYER No Employer PAYOR INFORMATION: 1ST PAYOR NAME Preston 1ST PAYOR PHONE 1ST PAYOR POLICY ID [id number] INJURY/ILLNESS DUE TO ACCIDENT? No ANOTHER CONSTITUTION PARTY RESPONSIBLE? No PRIMARY REHAB/ACUTE DIAGNOSIS: Myasthenia gravis with (acute) exacerbation (G70.01) ONSET DATE 12/24/2018 REHAB IMPAIRMENT CATEGORY (THALIA): 06 Neurological (Neuro) MEETS 60% rule PRIMARY DIAGNOSIS-RELATED SURGERIES: No surgeries related to the primary diagnosis were performed. 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 therapy X-rays RISK FOR COMPLICATIONS: - COPD Acute Resp failure Pneumonia Resp. Arrest SUMMARY OF ACUTE HOSPITALIZATION: Pt. is a 74 yo Right-handed white female. On 12/24/2018 she was admitted to [facility] with diagnosis Myasthenia gravis with (acute) exac erbation (G70.01). Her impairment category is Neurologic Conditions 03 - Neuromuscular Disorders (03.8). Pre-morbidly, Pt. was independent/mod-I in Self-Care, Sphincter Control, Transfers Control, Locomotio n, Communication, and Social Cognition; and she had good Sphincter Control. Currently, she has deficits of Transfers Control, Locomotion, Communication, Social Cognition, Endura nce, Balance, Safety Awareness, and Self-Care. Pt. is now referred to [facility] for acute in-patient rehabilitation in order to maximize patient's functional independence in activities of daily living, strength, ROM, and mobi lity. Patient has realistic goal of being discharged at assistance level 6-Vanessa to reside at Home with Fam kelsi/Relatives. 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) COPD Chronic systolic (congestive) heart failure (I50.22) GI//Fluid/Electrolyte Disorders HTN Hypocalcemia (E83.51) Pneumonia due to staphylococcus (J15.2) Severe sepsis with septic shock (R65.21) acute resp failure unsp w hypoxia or hypercapnia diabetes mellitus with hyperglycemia secondary thromocytopenia spinal stenosis in cervical region MEDICATION ALLERGIES: No Known Drug Allergies (NKDA) ENVIRONMENTAL ALLERGIES: - Substance Allergies None Known - Other Allergies None Known CODE STATUS: Full code WEIGHT/HEIGHT/BMI: WEIGHT 152 lbs HEIGHT 5' 0" BMI 29.7 DIET: - Diet Type Regular - Diet - Solid Texture Regular - Diet - Liquid Texture Regular - Tube Feed N/A REVIEW OF SYSTEMS: - Gen Alert and awake Lying in bed No apparent distress Oriented to: person, time, and place - Vital Signs Vital signs stable, afebrile - CVS RRR VITAL SIGNS Temperature: 98.0 F SBP/DBP: 143/51 Pulse: 97 Resp: 18 Vital signs stable, afebrile MEDICATIONS/TREATMENT: Other- See attached MAR (Medication Administration Record). CURRENT SPHINCTER CONTROL: Pre-hospital bladder status: unspecified # of bladder accidents in the last 7 days prior to screenin Pre-hospital bowel status: continent # of bowel accidents in the last 7 days prior to screenin Last Bowel Movement Date: 01/10/2019 DETAILED CURRENT FUNCTIONAL STATUS: - Bladder accident frequency: Ind - No accidents in the past 7 days - Bowel accident frequency: Ind - No accidents in the past 7 days - Walking score based on distance walked: 2(5149ft) - Wheelchair score based on distance traveled: 1(<=50ft) FUNCTIONAL STATUS: - Self-Care A. Eating Ind Ind B. Grooming Ind sup C. Bathing Ind Diane D. Dressing - Upper Ind Diane E. Dressing - Lower Ind modA F. Toileting Ind sup - Sphincter Control G: Bladder control Ind Ind H: Bowel control Ind Ind - Transfers Control I. Bed/Chair/Wheelchair Ind Diane J. Toilet Ind Diane K. Tub/Shower Ind Diane - Locomotion L. Walk/Wheelchair (C) Ind modA L. Walk/Wheelchair (W) Ind modA M. Stairs Ind ADNO - Communication N. Comprehension (B) Ind sup O. Expression (B) Ind sup - Social Cognition P. Social Interaction Ind sup Q. Problem Solving Ind sup R. Memory Ind sup - Endurance Poor - Balance Fair - Safety Awareness Fair CURRENT FUNC. DEFICITS: Transfers Control, Locomotion, Communication, Social Cognition, Endurance, Balance, Safety Awareness, and Self-Care THERAPY NOTES FROM ACUTE CARE: Attached. SPECIAL NEEDS: - Safety Concerns Skin breakdown precautions needed due to skin breakdown risk PATIENT NEEDS ACTIVE AND ONGOING THERAPEUTIC INTERVENTION OF MULTIPLE THERAPY DISCIPLINES, INCLUDING: - Dietary and Nutrition Adequate Nutrition. Nutritional Education. Nutritional Supplements. PATIENT NEEDS CLOSE MEDICAL SUPERVISION BY A REHABILITATION PHYSICIAN FOR: Bowel and Bladder Management Coordination of Treatment Team Diabetes Management Medical and Co-Morbidity Management PATIENT REQUIRES 24X7 REHAB NURSING FOR MEDICAL AND FUNCTIONAL MGT. OF THE FOLLOWING DEFICITS: ADL's Ambulation Bowel and Bladder Management Cognition Communication Disease Management Medication Management Patient/Family Education Providing Safe Environment Transfers PATIENT REQUIRES INTENSIVE, COORDINATED INTERDISCIPLINARY APPROACH TO REHAB: Arranging Home Equipment/Services Discharge Planning Family Intervention/Training Quarter Supervisor/Case Management PATIENT REHAB POTENTIAL: Stacia LANGE is able and expected to receive 3 hours of individualized therapy daily on at least 5 of every 7 days Stacia Gomez prognosis for significant practical improvement within a reasonable period of time appe ars Good Expected level of measurable improvement will be of a practical value to Stacia LANGE's functional cap acity or adaptations to impairments Has a viable Discharge Plan Medically appropriate; condition is sufficiently stable to participate in intensive rehab program DISCHARGE PLAN: - Estimated Length of Stay (days) 13. - Consensus on plan Discharge plan has been discussed with primary caregiver. Patient/Family is in agreement with the cristian n. Primary caregiver is in agreement with the plan. - Patient/Family Goals Return home with assistance. - Planned Living Setting Upon Discharge Home, to live with Family/Relatives. RECOMMENDED CARE LEVEL: IRF RECOMMENDATION DETAILS: Recommended Admission to Comprehensive Rehabilitation Program to Increase Functional [place] SCREENER'S COMPLETENESS CONFIRMATION: - Screening Confirmation The patient data collection on this preadmission screening form is finished PHYSICIANS REVIEW AND ADMISSION DETERMINATION Admit - Based on my review of the Pre-Admission Screening results, in my medical judgment and experie nce, I concur with the findings and recommend admission to [facility], as this patient requires an IRF level of care. SIGNATURE PANEL: Clinical Liaison - [electronically] signed by Lawanda Maciel on 01/10/2019 at 10:43 (CDT) Clinical Liaison - [electronically] signed by Camden Lacey PT on 01/10/2019 at 10:59 (CDT) Physician Reviewer - [electronically] signed by Dr. Noam Patricia M.D. on 01/10/2019 at 11:48 (CDT )
--- OUTSIDE RECORDS SUMMARY | 2019-01-10 17:49 | XMS REPORT | Clinical Summary ---
:1945 Author Organization [facility] Address [address] [place] [address] Care Team Providers Name Role Phone Manfred [...] Not on file Results Not on fileafter 2018 Insurance Payer Benefit Plan / Subscriber ID Type Phone Address Group [employer] - MEDICARE A[employer] MEDICARE HMO xxxxxxxx [phone] [address] [place] [address] Advance Directives For more information, please contact:[address] [phone] Code Status Date Activated Date Inactivated Comments Full Code 02/13/2014 10:17 AM 02/13/2014 6:26 PM This code status was determined by: Patient
--- OUTSIDE RECORDS SUMMARY | 2019-01-10 17:49 | XMS REPORT ---
:[address] [facility] Address [address] [place] [address] Dr. Tillman [address] [place] [id number] Care Team Providers Name Role Phone RUMA SANTANA Unavailable Unavailable Problems This patient has no known problems. Allergies, Adverse Reactions, Alerts This patient has no known allergies or adverse reactions. Medications This patient has no known medications. Encounters Start End Encounter Admission Attending Care Care Encounter Date/Time Date/Time Type Type Clinicians Facility Department ID 2018-12-24 Inpatient U [facility] [id number] 18:32:00 2018-08-16 Inpatient E [facility] [id number] 23:35:00 2018-11-29 2018-11-29 Emergency E [facility] [id number] 07:33:00 07:33:00 2018-09-21 2018-09-21 Outpatient U [facility] [id number] 18:06:00 18:06:00 2018-09-12 2018-09-10 Inpatient U [facility] [id number] 15:01:00 00:20:00 2018-09-09 2018-09-08 Inpatient [facility] [id number] 11:57:00 09:51:00 Results Test Description Test Time Test Comments Text Results Atomic Results Result Comments TISSUE EXAM 2017-02-26 15:21:00 Surgical Pathology Report Case: [id number] Authorizing Provider: Ruma Santana MD Collected: 02/24/2017 1559 Ordering Location: [facility] Received: 02/25/2017 [...] SERRATED POLYP/ADENOMA Signing Pathologist Direct Phone Line: [phone] signed by Kenji Hercules MD on 02/26/2017 at 3:21 [id number] x 3Diarrhea, rule out microscopic colitisA. Right/ascending [...] (BEAKER) (test 144 mg/dL 70-[address] [facility] [address] [place] [address] [id number]) [facility] [id number] POCT-GLUCOSE [id number] 14:21:00 Test Item Value Reference Range Comments POC-GLUCOSE METER (BEAKER) 118 mg/dL 70-110 TESTED AT [address] (test ltty=1056) [facility] [id number]
[2019-01-10] MEDS ORDERED: GLUCAGON 1 MG/VIAL IM PRN (19:26)
[2019-01-10] MEDS ORDERED: D50W 25 GM/50 ML SYRINGE IV PRN (19:26)
[2019-01-10] MEDS: HEPARIN 5000 UNIT/ML 1 ML VIAL SQ SCH (20:00)
[2019-01-10] MEDS: PYRIDOSTIGMINE 60 MG TABLET PO SCH (21:27)
[2019-01-10] MEDS: ROSUVASTATIN 10 MG TAB PO SCH (21:27)
[2019-01-10 21:29] LABS: Urine Appearance CLEAR; Urine Bilirubin NEGATIVE (NEG); Urine Blood NEGATIVE (NEG); Urine Color YELLOW; Urine Glucose 2+ (NEG); Urine Protein NEGATIVE (NEG); Urine Urobilinogen 0.2 mg/dL (0.2-1.0)
[2019-01-10 21:38] LABS: Urine Bacteria NONE SEEN /HPF (<20); Urine Culture Reflex Order NOT NEEDED; Urine RBC NONE SEEN /HPF (NONE SEEN)
[2019-01-10] MEDS: INSULIN GLARGINE 100 UNITS/ML SQ SCH (21:40)
[2019-01-10] MEDS: INSULIN -REGULAR HUMAN 50 UNIT/0.5 ML ML SQ SCH (21:40)
[2019-01-10] MEDS ORDERED: ACETAMINOPHEN 325 MG TABLET PO PRN (22:16)
[2019-01-10] MEDS ORDERED: DOCUSATE NA/SENNA CONC 1 TAB PO PRN (22:18)
[2019-01-10] MEDS: MELATONIN 3 MG TABLET PO PRN (23:16)
[2019-01-11] MEDS: PYRIDOSTIGMINE 60 MG TABLET PO SCH ×3 (04:59→21:02)
[2019-01-11 06:04] LABS: Potassium 3.8 mmol/L (3.5-5.1)
[2019-01-11 06:16] LABS: Absolute Lymphocytes (CBC) 6.1 K/uL (0.7-4.9); Basophils % 0.6 % (0-1.3); Hematocrit 30.4 % (36.0-45.0); Lymphocytes % 32.3 % (15.3-44.8); RBC Red Blood Cell Count 2.91 M/uL (3.86-4.86)
[2019-01-11 06:32] LABS: Albumin 2.9 g/dL (3.4-5.0); Magnesium 2.2 mg/dL (1.8-2.4); Prealbumin 21.8 mg/dL (20-40)
[2019-01-11] MEDS: LEVOTHYROXINE SOD 0.088 MG TAB PO SCH (06:49)
[2019-01-11] MEDS: INSULIN -REGULAR HUMAN 50 UNIT/0.5 ML ML SQ SCH ×4 (07:30→21:00)
[2019-01-11] MEDS: HEPARIN 5000 UNIT/ML 1 ML VIAL SQ SCH (08:00)
[2019-01-11] MEDS: INSULIN GLARGINE 100 UNITS/ML SQ SCH ×2 (08:00→21:03)
[2019-01-11] MEDS: INSULIN LISPRO 100 UNIT/1 ML SQ SCH ×3 (08:00→16:58)
[2019-01-11] MEDS: RAMIPRIL 5 MG CAP PO SCH (08:30)
[2019-01-11] MEDS: AMLODIPINE 10 MG TAB PO SCH (08:31)
[2019-01-11] MEDS: predniSONE 20 MG TAB PO SCH (08:31)
[2019-01-11] MEDS: SERTRALINE HCL 50 MG TAB PO SCH (08:31)
[2019-01-11] MEDS: FUROSEMIDE 40 MG TABLET PO SCH ×2 (08:31→16:56)
[2019-01-11] MEDS: ROPINIROLE HCL 1 MG TAB PO SCH (08:31)
[2019-01-11] MEDS: POTASSIUM CL SA 10 MEQ TAB PO SCH (08:32)
[2019-01-11 13:11] LABS: Anisocytosis 2+; Blood Morphology Comment NOTED (NOT SEEN); Platelet Estimate DECR
[2019-01-11 13:12] LABS: Basophilic Stippling 1+; Macrocytosis 2+; Polychromasia 2+
--- NOTE | 2019-01-11 15:24 | FAST ---
ENCOUNTER DATE AND TIME: 01/11/2019 08:00 (CDT) NAME ARNOLD FLOYD DATE OF : 1945 DATE OF ADMISSION: 01/10/2019 17:46 (CDT) PHONE: AGE: 74 N# [id number] GENDER: Female ENCOUNTER PHYSICIAN: Dr. Noam Patricia M.D. ADMISSION DIAGNOSIS: - Neurologic Conditions 03 - Neuromuscular Disorders (03.8) Myasthenia gravis with (acute) exacerbation (G70.01). EATING: EATING - STEP 1: Does the patient require the assistance of a person or device, or need extra time when eating? No. EATING - SCORE: 7-IND GROOMING: Comb/brush hair Oral care Wash, rinse, and dry face Wash, rinse, and dry hands GROOMING - STEP 1: Does the patient require the assistance of a person or device, or need extra time when grooming? No. GROOMING - SCORE: 7-IND BATHING: Abdomen Buttocks Chest Left arm Left lower leg and foot Left upper leg Perineal area Right arm Right lower leg and foot Right upper leg BATHING - STEP 1: Does the patient require the assistance of a person or device, or need extra time when bathing? Yes. BATHING - STEP 2: Does the patient require the assistance of a helper? Yes. BATHING - STEP 3: How much assistance does the patient require from the helper? More than just incidental help BATHING - STEP 4: What percent of the body parts did the patient bathe WITHOUT the helper? Half or more of the body par ts BATHING - SCORE: 3-MOD DRESSING - UPPER BODY: T-shirt/pullover shirt (four steps) ARTICLES SCORE Total number of steps: 4 DRESSING - UPPER BODY - STEP 1: Does the patient require help from a person or device, or need extra time when dressing above the mariya st? Yes. DRESSING - UPPER BODY - STEP 2: Does the patient require the assistance of a helper? Yes. DRESSING - UPPER BODY - STEP 3: Does the helper touch the patient while dressing? Yes. DRESSING - UPPER BODY - STEP 4: How many of the total steps does the patient complete on his/her own? 3 DRESSING - UPPER BODY - SCORE: 4-MIN DRESSING - LOWER BODY: Elastic waist pants (three steps) Sock - Left foot (one step) Sock - Right foot (one step) Underwear (three steps) ARTICLES SCORE Total number of steps: 8 DRESSING - LOWER BODY - STEP 1: Does the patient require help from a person or device, or need extra time when dressing below the mariya st? Yes. DRESSING - LOWER BODY - STEP 2: Does the patient require the assistance of a helper? Yes. DRESSING - LOWER BODY - STEP 3: Does the helper touch the patient while dressing? Yes. DRESSING - LOWER BODY - STEP 4: How many of the total steps does the patient complete on his/her own? 0 DRESSING - LOWER BODY - STEP 5: Does patient require total assistance for dressing below the waist such as the helper holding clothin g and performing basically all the activities? Yes. DRESSING - LOWER BODY - SCORE: 1-DEP TOILETING: Activity did not occur on this shift TOILETING - SCORE: 0-UNK BLADDER MANAGEMENT: Activity did not occur on this shift BLADDER MANAGEMENT - SCORE: 7-IND BOWEL MANAGEMENT: Activity did not occur on this shift BOWEL MANAGEMENT - SCORE: 7-IND TRANSFERS: BED, CHAIR, WHEELCHAIR: Activity did not occur on this shift TRANSFERS: BED, CHAIR, WHEELCHAIR - SCORE: 0-UNK TRANSFERS: TOILET: Activity did not occur on this shift TRANSFERS: TOILET - SCORE: 0-UNK TRANSFERS: SHOWER: TRANSFERS: SHOWER - STEP 1: Does the patient require the assistance of a person or device, or need extra time with shower transfe rs? Yes. TRANSFERS: SHOWER - STEP 2: Does the patient require the assistance of a helper? Yes. TRANSFERS: SHOWER - STEP 3: How much assistance does the patient require from the helper? More than incidental help TRANSFERS: SHOWER - STEP 4: How much more help does the patient require from the helper? Lifting the patient either up OR down fr om the wheelchair onto the shower chair TRANSFERS: SHOWER - SCORE: 3-MOD TRANSFERS: TUB: Activity did not occur on this shift TRANSFERS: TUB - SCORE: 0-UNK LOCOMOTION: WALK: Activity did not occur on this shift LOCOMOTION: WALK - SCORE: 0-UNK LOCOMOTION: WHEELCHAIR: Activity did not occur on this shift LOCOMOTION: WHEELCHAIR - SCORE: 0-UNK LOCOMOTION: STAIRS: Activity did not occur on this shift LOCOMOTION: STAIRS - SCORE: 0-UNK COMPREHENSION: COMPREHENSION: TYPE: Both COMPREHENSION - STEP 1: Does the patient require help from a person or device, or need extra time to understand complex and a bstract ideas (such as current events, finances, discharge planning, medical issues, relationships, e tc)? Yes. COMPREHENSION - STEP 2: Does the patient require help to understand questions or statements about basic needs or ideas (such as hunger, thirst, sleep, safety, daily schedule, room location, or discomfort) half or more of the t nandini? No. COMPREHENSION - STEP 3: How often does the patient need help to understand directions and conversation about basic needs? Les s than 10% of the time COMPREHENSION - SCORE: 5-SUP EXPRESSION EXPRESSION: TYPE: Both EXPRESSION - STEP 1: Does the patient require help from a person or device, or need extra time expressing complex and abst ract ideas (such as current events, finances, discharge planning, medical issues, relationships, etc) ? No. EXPRESSION - STEP 2: Does the patient need extra time, require an assistive device (such as augmentive communication syste m or a communication board), OR does s/he have mild difficulty expressing complex and abstract ideas (including mild dysarthria or mild word-find problems)? Yes. EXPRESSION - SCORE: 6-BETTIE SOCIAL INTERACTION: SOCIAL INTERACTION - STEP 1: Does the patient require a helper to interact with others in social and therapeutic situations? No. SOCIAL INTERACTION - STEP 2: Does the patient need extra time in social situations, OR does s/he interact with staff, other patien ts, and family members ONLY in structured environments, OR does s/he require medication for social in teraction? Yes, patient needs extra time SOCIAL INTERACTION - SCORE: 6-BETTIE PROBLEM SOLVING: PROBLEM SOLVING - STEP 1: Does the patient need help from a person or device, or need extra time to solve complex problems such as managing a checking account or confronting interpersonal problems? Yes. PROBLEM SOLVING - STEP 2: Does the patient solve basic routine problems half or more of the time? Yes. PROBLEM SOLVING - STEP 3: How often does the patient need help to solve basic routine problems? 10%-24% of the time PROBLEM SOLVING - SCORE: 4-MIN MEMORY: MEMORY - STEP 1: Does the patient need help from a person or device, or need extra time to remember frequently encount ered people, daily routines, and executing requests? Yes. MEMORY - STEP 2: How often does the patient need help to remember frequently encountered people, daily routines, and e xecuting requests? 25% - 49% of the time MEMORY - SCORE: 3-MOD SIGNATURE PANEL: The following modified sections: Eating - Score, Grooming - Score, Bathing - Score, Dressing - Upper Body - Score, Dressing - Lower Body - Score, Toileting - Score, Transfers: Bed, Chair, Wheelchair - S core, Transfers: Toilet - Score, Transfers: Tub - Score, Transfers: Shower - Score, Comprehension - S core, Expression - Score, Social Interaction - Score, Problem Solving - Score, Memory - Score were [e lectronically] signed by Teena Christiansen OT on ThuJan 11 2019 15:23:25 T-0500 ([facility])
--- NOTE | 2019-01-11 16:22 | FAST ---
ENCOUNTER DATE AND TIME: 01/11/2019 08:00 (CDT) NAME ARNOLD FLOYD DATE OF : 1945 DATE OF ADMISSION: 01/10/2019 17:46 (CDT) PHONE: AGE: 74 N# [id number] GENDER: Female ENCOUNTER PHYSICIAN: Dr. Noam Patricia M.D. ADMISSION DIAGNOSIS: - Neurologic Conditions 03 - Neuromuscular Disorders (03.8) Myasthenia gravis with (acute) exacerbation (G70.01). EATING: Activity did not occur on this shift EATING - SCORE: 0-UNK GROOMING: Activity did not occur on this shift GROOMING - SCORE: 0-UNK BATHING: Activity did not occur on this shift BATHING - SCORE: 0-UNK DRESSING - UPPER BODY: Activity did not occur on this shift Patient is not dressing in public clothing ARTICLES SCORE Total number of steps: 0 DRESSING - UPPER BODY - SCORE: 0-UNK DRESSING - LOWER BODY: Activity did not occur on this shift Patient is not dressing in public clothing ARTICLES SCORE Total number of steps: 0 DRESSING - LOWER BODY - SCORE: 0-UNK TOILETING: Activity did not occur on this shift TOILETING - SCORE: 0-UNK BLADDER MANAGEMENT: Activity did not occur on this shift BLADDER MANAGEMENT - SCORE: 7-IND BOWEL MANAGEMENT: Activity did not occur on this shift BOWEL MANAGEMENT - SCORE: 7-IND TRANSFERS: BED, CHAIR, WHEELCHAIR: TRANSFERS: BED, CHAIR, WHEELCHAIR - STEP 1: Does the patient require assistance of a person or device, or need extra time with bed, chair, or whe elchair transfers? Yes. TRANSFERS: BED, CHAIR, WHEELCHAIR - STEP 2: Does the patient require the assistance of a helper? Yes. TRANSFERS: BED, CHAIR, WHEELCHAIR - STEP 3: How much assistance does the patient require from the helper? Steadying/guiding assistance TRANSFERS: BED, CHAIR, WHEELCHAIR - SCORE: 4-MIN TRANSFERS: TOILET: Activity did not occur on this shift TRANSFERS: TOILET - SCORE: 0-UNK TRANSFERS: SHOWER: Activity did not occur on this shift TRANSFERS: SHOWER - SCORE: 0-UNK TRANSFERS: TUB: Activity did not occur on this shift TRANSFERS: TUB - SCORE: 0-UNK LOCOMOTION: WALK: LOCOMOTION: WALK - STEP 1: Does the patient need help from a person or device, or need extra time to walk 150 feet? Yes. LOCOMOTION: WALK - STEP 2: How much assistance does the patient require to walk a minimum of 150 feet? Only incidental help such as contact guarding or steadying LOCOMOTION: WALK - SCORE: 4-MIN LOCOMOTION: WHEELCHAIR: Activity did not occur on this shift LOCOMOTION: WHEELCHAIR - SCORE: 0-UNK LOCOMOTION: STAIRS: Activity did not occur on this shift LOCOMOTION: STAIRS - SCORE: 0-UNK COMPREHENSION: COMPREHENSION - SCORE: 0-UNK EXPRESSION EXPRESSION - SCORE: 0-UNK SOCIAL INTERACTION: SOCIAL INTERACTION - SCORE: 0-UNK PROBLEM SOLVING: PROBLEM SOLVING - SCORE: 0-UNK MEMORY: MEMORY - SCORE: 0-UNK SIGNATURE PANEL: The following modified sections: Transfers: Bed, Chair, Wheelchair - Score, Transfers: Toilet - Score , Locomotion: Walk - Score, Locomotion: Wheelchair - Score, Locomotion: Stairs - Score were [electron ically] signed by Camden Lacey PT on ThuJan 11 2019 16:22:03 [facility]-0500 ([facility])
[2019-01-11] MEDS: ROSUVASTATIN 10 MG TAB PO SCH (21:02)
[2019-01-11] MEDS: MELATONIN 3 MG TABLET PO PRN (21:02)
[2019-01-11] MEDS: APIXABAN 2.5 MG TABLET PO SCH (21:02)
--- NOTE | 2019-01-12 02:21 | FAST ---
SHIFT START DATE/TIME: 01/11/2019 19:00 (CDT) SHIFT END DATE/TIME: 01/12/2019 07:00 (CDT) NAME ARNOLD FLOYD DATE OF : 1945 DATE OF ADMISSION: 01/10/2019 17:46 (CDT) PHONE: AGE: 74 N# [id number] GENDER: Female ENCOUNTER PHYSICIAN: Dr. Noam Patricia M.D. ADMISSION DIAGNOSIS: - Neurologic Conditions 03 - Neuromuscular Disorders (03.8) Myasthenia gravis with (acute) exacerbation (G70.01). EATING: Activity did not occur on this shift EATING - SCORE: 0-UNK GROOMING: Activity did not occur on this shift GROOMING - SCORE: 0-UNK BATHING: Activity did not occur on this shift BATHING - SCORE: 0-UNK DRESSING - UPPER BODY: Patient is not dressing in public clothing ARTICLES SCORE Total number of steps: 0 DRESSING - UPPER BODY - SCORE: 0-UNK DRESSING - LOWER BODY: Patient is not dressing in public clothing ARTICLES SCORE Total number of steps: 0 DRESSING - LOWER BODY - SCORE: 0-UNK TOILETING: TOILETING - STEP 1: Does the patient require the assistance of a person or device, or need extra time with toileting? Yes . TOILETING - STEP 2: Does the patient require the assistance of a helper? Yes. TOILETING - STEP 3: How much assistance does the patient require from the helper? Hands-on assistance from the helper TOILETING - STEP 4: Of the 3 tasks: 1) Adjusting clothing prior to use, 2) Cleansing of perineal area, 3) Adjusting clot merna after use; How many tasks does the patient perform WITHOUT assistance of the helper? Three tasks with steadying assistance from the helper TOILETING - SCORE: 4-MIN BLADDER MANAGEMENT: BLADDER MANAGEMENT - STEP 1: Does the patient control the bladder completely and intentionally without equipment or devices or med ications, and is always continent? No. BLADDER MANAGEMENT - STEP 2: Does the patient require the assistance of a helper? Yes. BLADDER MANAGEMENT - STEP 3: How much assistance does the patient require from the helper? Patient requires contact assistance fro m the helper BLADDER MANAGEMENT - STEP 4: How much contact assistance does the patient require from the helper? Patient requires minimal assist ance to maintain an external device - by positioning, and the patient performs 75% or more of bladder management tasks, while the helper provides less than 25% of the assistance to position patient on / off bedpan BLADDER MANAGEMENT - SCORE: 4-MIN BOWEL MANAGEMENT: Activity did not occur on this shift BOWEL MANAGEMENT - SCORE: 7-IND TRANSFERS: BED, CHAIR, WHEELCHAIR: TRANSFERS: BED, CHAIR, WHEELCHAIR - STEP 1: Does the patient require assistance of a person or device, or need extra time with bed, chair, or whe elchair transfers? Yes. TRANSFERS: BED, CHAIR, WHEELCHAIR - STEP 2: Does the patient require the assistance of a helper? Yes. TRANSFERS: BED, CHAIR, WHEELCHAIR - STEP 3: How much assistance does the patient require from the helper? Lifting of the legs TRANSFERS: BED, CHAIR, WHEELCHAIR - STEP 4: How many legs does the patient require the helper to lift? both legs TRANSFERS: BED, CHAIR, WHEELCHAIR - SCORE: 3-MOD TRANSFERS: TOILET: TRANSFERS: TOILET - STEP 1: Does the patient require the assistance of a person or device, or need extra time with toilet transfe rs? Yes. TRANSFERS: TOILET - STEP 2: Does the patient require the assistance of a helper? Yes. TRANSFERS: TOILET - STEP 3: How much assistance does the patient require from the helper? Patient performs half or more of the tr ansferring tasks TRANSFERS: TOILET - STEP 4: Does the patient need only incidental help such as contact guard or steadying during toilet transfer? No. Patient needs more than incidental help TRANSFERS: TOILET - SCORE: 3-MOD TRANSFERS: SHOWER: Activity did not occur on this shift TRANSFERS: SHOWER - SCORE: 0-UNK TRANSFERS: TUB: Activity did not occur on this shift TRANSFERS: TUB - SCORE: 0-UNK LOCOMOTION: WALK: Activity did not occur on this shift LOCOMOTION: WALK - SCORE: 0-UNK LOCOMOTION: WHEELCHAIR: Activity did not occur on this shift LOCOMOTION: WHEELCHAIR - SCORE: 0-UNK COMPREHENSION: COMPREHENSION: TYPE: Both COMPREHENSION - STEP 1: Does the patient require help from a person or device, or need extra time to understand complex and a bstract ideas (such as current events, finances, discharge planning, medical issues, relationships, e tc)? Yes. COMPREHENSION - STEP 2: Does the patient require help to understand questions or statements about basic needs or ideas (such as hunger, thirst, sleep, safety, daily schedule, room location, or discomfort) half or more of the t nandini? No. COMPREHENSION - STEP 3: How often does the patient need help to understand directions and conversation about basic needs? Les s than 10% of the time COMPREHENSION - SCORE: 5-SUP EXPRESSION EXPRESSION: TYPE: Both EXPRESSION - STEP 1: Does the patient require help from a person or device, or need extra time expressing complex and abst ract ideas (such as current events, finances, discharge planning, medical issues, relationships, etc) ? Yes. EXPRESSION - STEP 2: Does the patient require help to express basic necessities or ideas (such as hunger, thirst, sleep, s afety, daily schedule, room location, or discomfort) half or more of the time? No. EXPRESSION - STEP 3: How often does the patient need help to express directions and conversation about basic needs? Less t alc[place] 10% of the time EXPRESSION - SCORE: 5-SUP SOCIAL INTERACTION: SOCIAL INTERACTION - STEP 1: Does the patient require a helper to interact with others in social and therapeutic situations? No. SOCIAL INTERACTION - STEP 2: Does the patient need extra time in social situations, OR does s/he interact with staff, other patien ts, and family members ONLY in structured environments, OR does s/he require medication for social in teraction? Yes, patient needs extra time SOCIAL INTERACTION - SCORE: 6-BETTIE PROBLEM SOLVING: PROBLEM SOLVING - STEP 1: Does the patient need help from a person or device, or need extra time to solve complex problems such as managing a checking account or confronting interpersonal problems? Yes. PROBLEM SOLVING - STEP 2: Does the patient solve basic routine problems half or more of the time? Yes. PROBLEM SOLVING - STEP 3: How often does the patient need help to solve basic routine problems? 10%-24% of the time PROBLEM SOLVING - SCORE: 4-MIN MEMORY: MEMORY - STEP 1: Does the patient need help from a person or device, or need extra time to remember frequently encount ered people, daily routines, and executing requests? Yes. MEMORY - STEP 2: How often does the patient need help to remember frequently encountered people, daily routines, and e xecuting requests? 10% - 24% of the time MEMORY - SCORE: 4-MIN
[2019-01-12] MEDS: PYRIDOSTIGMINE 60 MG TABLET PO SCH ×3 (04:27→21:05)
[2019-01-12] MEDS: ALENDRONATE 70 MG TAB PO SCH (05:45)
[2019-01-12] MEDS: LEVOTHYROXINE SOD 0.088 MG TAB PO SCH (06:37)
[2019-01-12] MEDS: INSULIN -REGULAR HUMAN 50 UNIT/0.5 ML ML SQ SCH ×4 (07:30→21:00)
[2019-01-12] MEDS: RAMIPRIL 5 MG CAP PO SCH (08:28)
[2019-01-12] MEDS: SERTRALINE HCL 50 MG TAB PO SCH (08:28)
[2019-01-12] MEDS: APIXABAN 2.5 MG TABLET PO SCH ×2 (08:29→21:02)
[2019-01-12] MEDS: ROPINIROLE HCL 1 MG TAB PO SCH (08:29)
[2019-01-12] MEDS: FUROSEMIDE 40 MG TABLET PO SCH ×2 (08:29→17:08)
[2019-01-12] MEDS: predniSONE 20 MG TAB PO SCH (08:29)
[2019-01-12] MEDS: INSULIN GLARGINE 100 UNITS/ML SQ SCH ×2 (09:25→21:02)
[2019-01-12] MEDS: INSULIN LISPRO 100 UNIT/1 ML SQ SCH ×3 (09:27→16:57)
[2019-01-12] MEDS: POTASSIUM CL SA 10 MEQ TAB PO SCH (12:24)
[2019-01-12] MEDS: AMLODIPINE 10 MG TAB PO SCH (12:25)
--- NOTE | 2019-01-12 15:03 | FAST ---
SHIFT START DATE/TIME: 01/12/2019 07:00 (CDT) SHIFT END DATE/TIME: 01/12/2019 19:00 (CDT) NAME ARNOLD FLOYD DATE OF : 1945 DATE OF ADMISSION: 01/10/2019 17:46 (CDT) PHONE: AGE: 74 N# [id number] GENDER: Female ENCOUNTER PHYSICIAN: Dr. Noam Patricia M.D. ADMISSION DIAGNOSIS: - Neurologic Conditions 03 - Neuromuscular Disorders (03.8) Myasthenia gravis with (acute) exacerbation (G70.01). EATING: EATING - STEP 1: Does the patient require the assistance of a person or device, or need extra time when eating? Yes. EATING - STEP 2: Does the patient require the assistance of a helper? No, patient only requires an assistive device, O R s/he takes more than reasonable time to eat, OR there is a safety concern, OR s/he requires modifie d food consistency EATING - SCORE: 6-BETTIE GROOMING: Activity did not occur on this shift GROOMING - SCORE: 0-UNK BATHING: Activity did not occur on this shift BATHING - SCORE: 0-UNK DRESSING - UPPER BODY: Activity did not occur on this shift ARTICLES SCORE Total number of steps: 0 DRESSING - UPPER BODY - SCORE: 0-UNK DRESSING - LOWER BODY: Activity did not occur on this shift ARTICLES SCORE Total number of steps: 0 DRESSING - LOWER BODY - SCORE: 0-UNK TOILETING: TOILETING - STEP 1: Does the patient require the assistance of a person or device, or need extra time with toileting? Yes . TOILETING - STEP 2: Does the patient require the assistance of a helper? Yes. TOILETING - STEP 3: How much assistance does the patient require from the helper? Hands-on assistance from the helper TOILETING - STEP 4: Of the 3 tasks: 1) Adjusting clothing prior to use, 2) Cleansing of perineal area, 3) Adjusting clot merna after use; How many tasks does the patient perform WITHOUT assistance of the helper? Two tasks TOILETING - SCORE: 3-MOD BLADDER MANAGEMENT: BLADDER MANAGEMENT - STEP 1: Does the patient control the bladder completely and intentionally without equipment or devices or med ications, and is always continent? No. BLADDER MANAGEMENT - STEP 2: Does the patient require the assistance of a helper? No, patient requires and independently uses an a ssistive device, such as a urinal, bedpan, bedside commode, catheter, absorbent pad, or collecting de vice BLADDER MANAGEMENT - SCORE: 6-BETTIE BOWEL MANAGEMENT: Activity did not occur on this shift BOWEL MANAGEMENT - SCORE: 7-IND TRANSFERS: BED, CHAIR, WHEELCHAIR: TRANSFERS: BED, CHAIR, WHEELCHAIR - STEP 1: Does the patient require assistance of a person or device, or need extra time with bed, chair, or whe elchair transfers? Yes. TRANSFERS: BED, CHAIR, WHEELCHAIR - STEP 2: Does the patient require the assistance of a helper? Yes. TRANSFERS: BED, CHAIR, WHEELCHAIR - STEP 3: How much assistance does the patient require from the helper? Steadying/guiding assistance TRANSFERS: BED, CHAIR, WHEELCHAIR - SCORE: 4-MIN TRANSFERS: TOILET: TRANSFERS: TOILET - STEP 1: Does the patient require the assistance of a person or device, or need extra time with toilet transfe rs? Yes. TRANSFERS: TOILET - STEP 2: Does the patient require the assistance of a helper? Yes. TRANSFERS: TOILET - STEP 3: How much assistance does the patient require from the helper? Patient performs half or more of the tr ansferring tasks TRANSFERS: TOILET - STEP 4: Does the patient need only incidental help such as contact guard or steadying during toilet transfer? No. Patient needs more than incidental help TRANSFERS: TOILET - SCORE: 3-MOD TRANSFERS: SHOWER: Activity did not occur on this shift TRANSFERS: SHOWER - SCORE: 0-UNK TRANSFERS: TUB: Activity did not occur on this shift TRANSFERS: TUB - SCORE: 0-UNK LOCOMOTION: WALK: Activity did not occur on this shift LOCOMOTION: WALK - SCORE: 0-UNK LOCOMOTION: WHEELCHAIR: Activity did not occur on this shift LOCOMOTION: WHEELCHAIR - SCORE: 0-UNK COMPREHENSION: COMPREHENSION: TYPE: Both COMPREHENSION - STEP 1: Does the patient require help from a person or device, or need extra time to understand complex and a bstract ideas (such as current events, finances, discharge planning, medical issues, relationships, e tc)? Yes. COMPREHENSION - STEP 2: Does the patient require help to understand questions or statements about basic needs or ideas (such as hunger, thirst, sleep, safety, daily schedule, room location, or discomfort) half or more of the t nandiin? No. COMPREHENSION - STEP 3: How often does the patient need help to understand directions and conversation about basic needs? Les s than 10% of the time COMPREHENSION - SCORE: 5-SUP EXPRESSION EXPRESSION: TYPE: Both EXPRESSION - STEP 1: Does the patient require help from a person or device, or need extra time expressing complex and abst ract ideas (such as current events, finances, discharge planning, medical issues, relationships, etc) ? Yes. EXPRESSION - STEP 2: Does the patient require help to express basic necessities or ideas (such as hunger, thirst, sleep, s afety, daily schedule, room location, or discomfort) half or more of the time? No. EXPRESSION - STEP 3: How often does the patient need help to express directions and conversation about basic needs? Less t alcantara 10% of the time EXPRESSION - SCORE: 5-SUP SOCIAL INTERACTION: SOCIAL INTERACTION - STEP 1: Does the patient require a helper to interact with others in social and therapeutic situations? Yes. SOCIAL INTERACTION - STEP 2: Does the patient interact appropriately half or more of the time? Yes. SOCIAL INTERACTION - STEP 3: How often does the patient need help to interact appropriately? Less than 10% of the time SOCIAL INTERACTION - SCORE: 5-SUP PROBLEM SOLVING: PROBLEM SOLVING - STEP 1: Does the patient need help from a person or device, or need extra time to solve complex problems such as managing a checking account or confronting interpersonal problems? Yes. PROBLEM SOLVING - STEP 2: Does the patient solve basic routine problems half or more of the time? Yes. PROBLEM SOLVING - STEP 3: How often does the patient need help to solve basic routine problems? 10%-24% of the time PROBLEM SOLVING - SCORE: 4-MIN MEMORY: MEMORY - STEP 1: Does the patient need help from a person or device, or need extra time to remember frequently encount ered people, daily routines, and executing requests? Yes. MEMORY - STEP 2: How often does the patient need help to remember frequently encountered people, daily routines, and e xecuting requests? 10% - 24% of the time MEMORY - SCORE: 4-MIN SIGNATURE PANEL: The following modified sections: Eating - Score, Grooming - Score, Bathing - Score, Dressing - Upper Body - Score, Dressing - Lower Body - Score, Toileting - Score, Bladder Management - Score, Bowel Man agement - Score, Transfers: Bed, Chair, Wheelchair - Score, Transfers: Toilet - Score, Transfers: Treasure wer - Score, Transfers: Tub - Score, Locomotion: Walk - Score, Locomotion: Wheelchair - Score, Compre hension - Score, Expression - Score, Social Interaction - Score, Problem Solving - Score, Memory - Sc ore were [electronically] signed by Brendon Corona on ThuJan 12 2019 15:01:49 GMT-0500 (Central Daylight Time)
[2019-01-12] MEDS: ROSUVASTATIN 10 MG TAB PO SCH (21:01)
[2019-01-12] MEDS: DOCUSATE NA/SENNA CONC 1 TAB PO SCH (21:02)
[2019-01-13] MEDS: PYRIDOSTIGMINE 60 MG TABLET PO SCH ×3 (04:36→21:17)
[2019-01-13] MEDS: LEVOTHYROXINE SOD 0.088 MG TAB PO SCH (04:36)
[2019-01-13 07:06] LABS: Absolute Lymphocytes (CBC) 5.9 K/uL (0.7-4.9); Basophils % 0.5 % (0-1.3); Hematocrit 33.7 % (36.0-45.0); Lymphocytes % 30.4 % (15.3-44.8); RBC Red Blood Cell Count 3.22 M/uL (3.86-4.86)
[2019-01-13] MEDS: INSULIN -REGULAR HUMAN 50 UNIT/0.5 ML ML SQ SCH ×4 (07:30→21:00)
[2019-01-13 07:43] LABS: Albumin 2.9 g/dL (3.4-5.0); Magnesium 2.5 mg/dL (1.8-2.4); Potassium 3.4 mmol/L (3.5-5.1); Prealbumin 29.2 mg/dL (20-40)
[2019-01-13] MEDS: INSULIN GLARGINE 100 UNITS/ML SQ SCH ×2 (08:00→21:00)
[2019-01-13] MEDS: INSULIN LISPRO 100 UNIT/1 ML SQ SCH ×3 (08:00→17:07)
--- NOTE | 2019-01-13 08:29 | FAST ---
ENCOUNTER DATE AND TIME: 01/12/2019 08:00 (CDT) NAME ARNOLD FLOYD DATE OF : 1945 DATE OF ADMISSION: 01/10/2019 17:46 (CDT) PHONE: AGE: 74 N# [id number] GENDER: Female ENCOUNTER PHYSICIAN: Dr. Noam Patricia M.D. ADMISSION DIAGNOSIS: - Neurologic Conditions 03 - Neuromuscular Disorders (03.8) Myasthenia gravis with (acute) exacerbation (G70.01). EATING: Activity did not occur on this shift EATING - SCORE: 0-UNK GROOMING: Activity did not occur on this shift GROOMING - SCORE: 0-UNK BATHING: Activity did not occur on this shift BATHING - SCORE: 0-UNK DRESSING - UPPER BODY: Activity did not occur on this shift Patient is not dressing in public clothing ARTICLES SCORE Total number of steps: 0 DRESSING - UPPER BODY - SCORE: 0-UNK DRESSING - LOWER BODY: Activity did not occur on this shift Patient is not dressing in public clothing ARTICLES SCORE Total number of steps: 0 DRESSING - LOWER BODY - SCORE: 0-UNK TOILETING: Activity did not occur on this shift TOILETING - SCORE: 0-UNK BLADDER MANAGEMENT: Activity did not occur on this shift BLADDER MANAGEMENT - SCORE: 7-IND BOWEL MANAGEMENT: Activity did not occur on this shift BOWEL MANAGEMENT - SCORE: 7-IND TRANSFERS: BED, CHAIR, WHEELCHAIR: TRANSFERS: BED, CHAIR, WHEELCHAIR - STEP 1: Does the patient require assistance of a person or device, or need extra time with bed, chair, or whe elchair transfers? Yes. TRANSFERS: BED, CHAIR, WHEELCHAIR - STEP 2: Does the patient require the assistance of a helper? Yes. TRANSFERS: BED, CHAIR, WHEELCHAIR - STEP 3: How much assistance does the patient require from the helper? Steadying/guiding assistance TRANSFERS: BED, CHAIR, WHEELCHAIR - SCORE: 4-MIN TRANSFERS: TOILET: Activity did not occur on this shift TRANSFERS: TOILET - SCORE: 0-UNK TRANSFERS: SHOWER: Activity did not occur on this shift TRANSFERS: SHOWER - SCORE: 0-UNK TRANSFERS: TUB: Activity did not occur on this shift TRANSFERS: TUB - SCORE: 0-UNK LOCOMOTION: WALK: LOCOMOTION: WALK - STEP 1: Does the patient need help from a person or device, or need extra time to walk 150 feet? Yes. LOCOMOTION: WALK - STEP 2: How much assistance does the patient require to walk a minimum of 150 feet? Only supervision, cuing, or coaxing LOCOMOTION: WALK - SCORE: 5-SUP LOCOMOTION: WHEELCHAIR: Patient propels wheelchair less than 50 ft LOCOMOTION: WHEELCHAIR - SCORE: 1-DEP LOCOMOTION: STAIRS: Activity did not occur on this shift LOCOMOTION: STAIRS - SCORE: 0-UNK COMPREHENSION: COMPREHENSION - SCORE: 0-UNK EXPRESSION EXPRESSION - SCORE: 0-UNK SOCIAL INTERACTION: SOCIAL INTERACTION - SCORE: 0-UNK PROBLEM SOLVING: PROBLEM SOLVING - SCORE: 0-UNK MEMORY: MEMORY - SCORE: 0-UNK SIGNATURE PANEL: The following modified sections: Transfers: Bed, Chair, Wheelchair - Score, Transfers: Toilet - Score , Locomotion: Walk - Score, Locomotion: Wheelchair - Score, Locomotion: Stairs - Score were [electron ically] signed by Chevy Amanda PTA on ThuJan 13 2019 08:26:51 GMT-0500 (Central Daylight Time)
[2019-01-13] MEDS: ROPINIROLE HCL 1 MG TAB PO SCH (08:34)
[2019-01-13] MEDS: RAMIPRIL 5 MG CAP PO SCH (08:35)
[2019-01-13] MEDS: SERTRALINE HCL 50 MG TAB PO SCH (08:36)
[2019-01-13] MEDS: POTASSIUM CL SA 10 MEQ TAB PO SCH (08:36)
[2019-01-13] MEDS: predniSONE 20 MG TAB PO SCH (08:37)
[2019-01-13] MEDS: APIXABAN 2.5 MG TABLET PO SCH ×2 (08:37→21:17)
[2019-01-13] MEDS: FUROSEMIDE 40 MG TABLET PO SCH ×2 (08:38→16:43)
[2019-01-13] MEDS: AMLODIPINE 10 MG TAB PO SCH (11:08)
--- NOTE | 2019-01-13 12:43 | FAST ---
ENCOUNTER DATE AND TIME: 01/13/2019 08:00 (CDT) NAME ARNOLD FLOYD DATE OF : 1945 DATE OF ADMISSION: 01/10/2019 17:46 (CDT) PHONE: AGE: 74 N# [id number] GENDER: Female ENCOUNTER PHYSICIAN: Dr. Noam Patricia M.D. ADMISSION DIAGNOSIS: - Neurologic Conditions 03 - Neuromuscular Disorders (03.8) Myasthenia gravis with (acute) exacerbation (G70.01). EATING: Activity did not occur on this shift EATING - SCORE: 0-UNK GROOMING: Comb/brush hair Wash, rinse, and dry face Wash, rinse, and dry hands GROOMING - STEP 1: Does the patient require the assistance of a person or device, or need extra time when grooming? Yes. GROOMING - STEP 2: Does the patient require the assistance of a helper? Yes. GROOMING - STEP 3: How much assistance does the patient require from the helper? Cuing, coaxing, instructions, or encour agement for completion of grooming GROOMING - SCORE: 5-SUP BATHING: Abdomen Buttocks Chest Left arm Left lower leg and foot Left upper leg Perineal area Right arm Right lower leg and foot Right upper leg BATHING - STEP 1: Does the patient require the assistance of a person or device, or need extra time when bathing? Yes. BATHING - STEP 2: Does the patient require the assistance of a helper? Yes. BATHING - STEP 3: How much assistance does the patient require from the helper? Only incidental help such as placement of a wash cloth in his/her hand a few times as s/he bathes OR help to bathe just one or two areas of the body BATHING - SCORE: 4-MIN DRESSING - UPPER BODY: T-shirt/pullover shirt (four steps) ARTICLES SCORE Total number of steps: 4 DRESSING - UPPER BODY - STEP 1: Does the patient require help from a person or device, or need extra time when dressing above the [address]? Yes. DRESSING - UPPER BODY - STEP 2: Does the patient require the assistance of a helper? Yes. DRESSING - UPPER BODY - STEP 3: Does the helper touch the patient while dressing? No. DRESSING - UPPER BODY - SCORE: 5-SUP DRESSING - LOWER BODY: Elastic waist pants (three steps) Sock - Left foot (one step) Sock - Right foot (one step) Underwear (three steps) ARTICLES SCORE Total number of steps: 8 DRESSING - LOWER BODY - STEP 1: Does the patient require help from a person or device, or need extra time when dressing below the mariya st? Yes. DRESSING - LOWER BODY - STEP 2: Does the patient require the assistance of a helper? Yes. DRESSING - LOWER BODY - STEP 3: Does the helper touch the patient while dressing? Yes. DRESSING - LOWER BODY - STEP 4: How many of the total steps does the patient complete on his/her own? 2 DRESSING - LOWER BODY - STEP 5: Does patient require total assistance for dressing below the waist such as the helper holding clothin g and performing basically all the activities? No. DRESSING - LOWER BODY - SCORE: 2-MAX TOILETING: Activity did not occur on this shift TOILETING - SCORE: 0-UNK BLADDER MANAGEMENT: Activity did not occur on this shift BLADDER MANAGEMENT - SCORE: 7-IND BOWEL MANAGEMENT: Activity did not occur on this shift BOWEL MANAGEMENT - SCORE: 7-IND TRANSFERS: BED, CHAIR, WHEELCHAIR: Activity did not occur on this shift TRANSFERS: BED, CHAIR, WHEELCHAIR - SCORE: 0-UNK TRANSFERS: TOILET: Activity did not occur on this shift TRANSFERS: TOILET - SCORE: 0-UNK TRANSFERS: SHOWER: TRANSFERS: SHOWER - STEP 1: Does the patient require the assistance of a person or device, or need extra time with shower transfe rs? Yes. TRANSFERS: SHOWER - STEP 2: Does the patient require the assistance of a helper? Yes. TRANSFERS: SHOWER - STEP 3: How much assistance does the patient require from the helper? Only incidental help such as contact gu arding or steadying during shower transfers, or help to lift one leg into the shower TRANSFERS: SHOWER - SCORE: 4-MIN TRANSFERS: TUB: Activity did not occur on this shift TRANSFERS: TUB - SCORE: 0-UNK LOCOMOTION: WALK: Activity did not occur on this shift LOCOMOTION: WALK - SCORE: 0-UNK LOCOMOTION: WHEELCHAIR: Activity did not occur on this shift LOCOMOTION: WHEELCHAIR - SCORE: 0-UNK LOCOMOTION: STAIRS: Activity did not occur on this shift LOCOMOTION: STAIRS - SCORE: 0-UNK COMPREHENSION: COMPREHENSION - SCORE: 0-UNK EXPRESSION EXPRESSION - SCORE: 0-UNK SOCIAL INTERACTION: SOCIAL INTERACTION - SCORE: 0-UNK PROBLEM SOLVING: PROBLEM SOLVING - SCORE: 0-UNK MEMORY: MEMORY - SCORE: 0-UNK SIGNATURE PANEL: The following modified sections: Eating - Score, Grooming - Score, Bathing - Score, Dressing - Upper Body - Score, Dressing - Lower Body - Score, Toileting - Score, Transfers: Bed, Chair, Wheelchair - S core, Transfers: Toilet - Score, Transfers: Shower - Score, Transfers: Tub - Score, Comprehension - S core, Expression - Score, Social Interaction - Score, Problem Solving - Score, Memory - Score were [e lectronically] signed by ALPHONSE Olivo on ThuJan 13 2019 12:42:27 T-0500 (Formerly [facility])
--- NOTE | 2019-01-13 14:46 | FAST ---
SHIFT START DATE/TIME: 01/13/2019 07:00 (CDT) SHIFT END DATE/TIME: 01/13/2019 19:00 (CDT) NAME ARNOLD FLOYD DATE OF : 1945 DATE OF ADMISSION: 01/10/2019 17:46 (CDT) PHONE: AGE: 74 N# [id number] GENDER: Female ENCOUNTER PHYSICIAN: Dr. Noam Patricia M.D. ADMISSION DIAGNOSIS: - Neurologic Conditions 03 - Neuromuscular Disorders (03.8) Myasthenia gravis with (acute) exacerbation (G70.01). EATING: EATING - STEP 1: Does the patient require the assistance of a person or device, or need extra time when eating? Yes. EATING - STEP 2: Does the patient require the assistance of a helper? No, patient only requires an assistive device, O R s/he takes more than reasonable time to eat, OR there is a safety concern, OR s/he requires modifie d food consistency EATING - SCORE: 6-BETTIE GROOMING: Activity did not occur on this shift GROOMING - SCORE: 0-UNK BATHING: Activity did not occur on this shift BATHING - SCORE: 0-UNK DRESSING - UPPER BODY: Activity did not occur on this shift ARTICLES SCORE Total number of steps: 0 DRESSING - UPPER BODY - SCORE: 0-UNK DRESSING - LOWER BODY: Activity did not occur on this shift ARTICLES SCORE Total number of steps: 0 DRESSING - LOWER BODY - SCORE: 0-UNK TOILETING: TOILETING - STEP 1: Does the patient require the assistance of a person or device, or need extra time with toileting? Yes . TOILETING - STEP 2: Does the patient require the assistance of a helper? Yes. TOILETING - STEP 3: How much assistance does the patient require from the helper? Hands-on assistance from the helper TOILETING - STEP 4: Of the 3 tasks: 1) Adjusting clothing prior to use, 2) Cleansing of perineal area, 3) Adjusting clot merna after use; How many tasks does the patient perform WITHOUT assistance of the helper? Two tasks TOILETING - SCORE: 3-MOD BLADDER MANAGEMENT: BLADDER MANAGEMENT - STEP 1: Does the patient control the bladder completely and intentionally without equipment or devices or med ications, and is always continent? No. BLADDER MANAGEMENT - STEP 2: Does the patient require the assistance of a helper? No, patient requires and independently uses an a ssistive device, such as a urinal, bedpan, bedside commode, catheter, absorbent pad, or collecting de vice BLADDER MANAGEMENT - SCORE: 6-BETTIE BOWEL MANAGEMENT: Activity did not occur on this shift BOWEL MANAGEMENT - SCORE: 7-IND TRANSFERS: BED, CHAIR, WHEELCHAIR: TRANSFERS: BED, CHAIR, WHEELCHAIR - STEP 1: Does the patient require assistance of a person or device, or need extra time with bed, chair, or whe elchair transfers? Yes. TRANSFERS: BED, CHAIR, WHEELCHAIR - STEP 2: Does the patient require the assistance of a helper? Yes. TRANSFERS: BED, CHAIR, WHEELCHAIR - STEP 3: How much assistance does the patient require from the helper? Steadying/guiding assistance TRANSFERS: BED, CHAIR, WHEELCHAIR - SCORE: 4-MIN TRANSFERS: TOILET: TRANSFERS: TOILET - STEP 1: Does the patient require the assistance of a person or device, or need extra time with toilet transfe rs? Yes. TRANSFERS: TOILET - STEP 2: Does the patient require the assistance of a helper? Yes. TRANSFERS: TOILET - STEP 3: How much assistance does the patient require from the helper? Patient performs half or more of the tr ansferring tasks TRANSFERS: TOILET - STEP 4: Does the patient need only incidental help such as contact guard or steadying during toilet transfer? Yes. TRANSFERS: TOILET - SCORE: 4-MIN TRANSFERS: SHOWER: Activity did not occur on this shift TRANSFERS: SHOWER - SCORE: 0-UNK TRANSFERS: TUB: Activity did not occur on this shift TRANSFERS: TUB - SCORE: 0-UNK LOCOMOTION: WALK: Activity did not occur on this shift LOCOMOTION: WALK - SCORE: 0-UNK LOCOMOTION: WHEELCHAIR: Activity did not occur on this shift LOCOMOTION: WHEELCHAIR - SCORE: 0-UNK COMPREHENSION: COMPREHENSION: TYPE: Both COMPREHENSION - STEP 1: Does the patient require help from a person or device, or need extra time to understand complex and a bstract ideas (such as current events, finances, discharge planning, medical issues, relationships, e tc)? No. COMPREHENSION - STEP 2: Does the patient need extra time, require an assistive device (such as glasses for visual comprehensi on or a hearing aid for auditory comprehension) or does s/he have mild difficulty understanding compl ex and abstract information? Yes. COMPREHENSION - SCORE: 6-BETTIE EXPRESSION EXPRESSION: TYPE: Both EXPRESSION - STEP 1: Does the patient require help from a person or device, or need extra time expressing complex and abst ract ideas (such as current events, finances, discharge planning, medical issues, relationships, etc) ? No. EXPRESSION - STEP 2: Does the patient need extra time, require an assistive device (such as augmentive communication syste m or a communication board), OR does s/he have mild difficulty expressing complex and abstract ideas (including mild dysarthria or mild word-find problems)? Yes. EXPRESSION - SCORE: 6-BETTIE SOCIAL INTERACTION: SOCIAL INTERACTION - STEP 1: Does the patient require a helper to interact with others in social and therapeutic situations? No. SOCIAL INTERACTION - STEP 2: Does the patient need extra time in social situations, OR does s/he interact with staff, other patien ts, and family members ONLY in structured environments, OR does s/he require medication for social in teraction? Yes, patient needs extra time SOCIAL INTERACTION - SCORE: 6-BETTIE PROBLEM SOLVING: PROBLEM SOLVING - STEP 1: Does the patient need help from a person or device, or need extra time to solve complex problems such as managing a checking account or confronting interpersonal problems? No. PROBLEM SOLVING - STEP 2: Does the patient require extra time to make decisions or solve problems, OR does s/he have slight dif ficulty reading, initiating, or self-correcting in unfamiliar situations? Yes, patient needs extra ti me. PROBLEM SOLVING - SCORE: 6-BETTIE MEMORY: MEMORY - STEP 1: Does the patient need help from a person or device, or need extra time to remember frequently encount ered people, daily routines, and executing requests? No. MEMORY - STEP 2: Does the patient have slight difficulty recognizing frequently encountered people, daily routines, or executing requests without the need for repetition or using self-initiated or environmental cues to remember? Yes. MEMORY - SCORE: 6-BETTIE SIGNATURE PANEL: The following modified sections: Eating - Score, Grooming - Score, Bathing - Score, Dressing - Upper Body - Score, Dressing - Lower Body - Score, Toileting - Score, Bladder Management - Score, Bowel Man agement - Score, Transfers: Bed, Chair, Wheelchair - Score, Transfers: Toilet - Score, Transfers: Treasure wer - Score, Transfers: Tub - Score, Locomotion: Walk - Score, Locomotion: Wheelchair - Score, Compre hension - Score, Expression - Score, Social Interaction - Score, Problem Solving - Score, Memory - Sc ore were [electronically] signed by Brendon Corona on ThuJan 13 2019 14:45:03 GMT-0500 (Central Daylight Time)
[2019-01-13] MEDS ORDERED: D50W 25 GM/50 ML SYRINGE IV PRN (15:03)
[2019-01-13] MEDS ORDERED: GLUCAGON 1 MG/VIAL IM PRN (15:03)
--- NOTE | 2019-01-13 16:14 | RAD REPORT ---
EXAM DESCRIPTION: Niru Single View01/13/2019 3:55 pm CLINICAL HISTORY: Chest pain COMPARISON: November 2018 FINDINGS: Right lung opacities appear resolved Lungs appear clear of acute infiltrate. The heart remains enlarged
[2019-01-13] MEDS: DOCUSATE NA/SENNA CONC 1 TAB PO SCH (21:16)
[2019-01-13] MEDS: ROSUVASTATIN 10 MG TAB PO SCH (21:16)
[2019-01-13] MEDS: PROMOD 30 ML DOSE PO SCH (21:17)
[2019-01-13] MEDS: CRANBERRY FRUIT EXTRACT 200 MG CAP PO SCH (21:17)
--- NOTE | 2019-01-14 00:44 | FAST ---
SHIFT START DATE/TIME: 01/13/2019 19:00 (CDT) SHIFT END DATE/TIME: 01/14/2019 07:00 (CDT) NAME ARNOLD FLOYD DATE OF : 1945 DATE OF ADMISSION: 01/10/2019 17:46 (CDT) PHONE: AGE: 74 N# [id number] GENDER: Female ENCOUNTER PHYSICIAN: Dr. Noam Patricia M.D. ADMISSION DIAGNOSIS: - Neurologic Conditions 03 - Neuromuscular Disorders (03.8) Myasthenia gravis with (acute) exacerbation (G70.01). EATING: Activity did not occur on this shift EATING - SCORE: 0-UNK GROOMING: Wash, rinse, and dry hands GROOMING - STEP 1: Does the patient require the assistance of a person or device, or need extra time when grooming? Yes. GROOMING - STEP 2: Does the patient require the assistance of a helper? No. The patient only requires an assistive devic e, OR takes more than reasonable time to groom, OR there is a concern for safety as the patient groom s GROOMING - SCORE: 6-BETTIE BATHING: Activity did not occur on this shift BATHING - SCORE: 0-UNK DRESSING - UPPER BODY: Patient is not dressing in public clothing ARTICLES SCORE Total number of steps: 0 DRESSING - UPPER BODY - SCORE: 0-UNK DRESSING - LOWER BODY: Patient is not dressing in public clothing ARTICLES SCORE Total number of steps: 0 DRESSING - LOWER BODY - SCORE: 0-UNK TOILETING: TOILETING - STEP 1: Does the patient require the assistance of a person or device, or need extra time with toileting? Yes . TOILETING - STEP 2: Does the patient require the assistance of a helper? Yes. TOILETING - STEP 3: How much assistance does the patient require from the helper? Only supervision TOILETING - SCORE: 5-SUP BLADDER MANAGEMENT: BLADDER MANAGEMENT - STEP 1: Does the patient control the bladder completely and intentionally without equipment or devices or med ications, and is always continent? No. BLADDER MANAGEMENT - STEP 2: Does the patient require the assistance of a helper? No, patient requires and independently uses an a ssistive device, such as a urinal, bedpan, bedside commode, catheter, absorbent pad, or collecting de vice BLADDER MANAGEMENT - SCORE: 6-BETTIE BOWEL MANAGEMENT: BOWEL MANAGEMENT - STEP 1: Does the patient control bowels completely and intentionally without equipment devices or medications AND is always continent? No. BOWEL MANAGEMENT - STEP 2: Does the patient require the assistance of a helper? No, patient requires medication for control such as stool softeners, suppositories, laxatives, enemas, or OTC medications BOWEL MANAGEMENT - SCORE: 6-BETTIE TRANSFERS: BED, CHAIR, WHEELCHAIR: TRANSFERS: BED, CHAIR, WHEELCHAIR - STEP 1: Does the patient require assistance of a person or device, or need extra time with bed, chair, or whe elchair transfers? Yes. TRANSFERS: BED, CHAIR, WHEELCHAIR - STEP 2: Does the patient require the assistance of a helper? Yes. TRANSFERS: BED, CHAIR, WHEELCHAIR - STEP 3: How much assistance does the patient require from the helper? Lifting of the legs TRANSFERS: BED, CHAIR, WHEELCHAIR - STEP 4: How many legs does the patient require the helper to lift? both legs TRANSFERS: BED, CHAIR, WHEELCHAIR - SCORE: 3-MOD TRANSFERS: TOILET: TRANSFERS: TOILET - STEP 1: Does the patient require the assistance of a person or device, or need extra time with toilet transfe rs? Yes. TRANSFERS: TOILET - STEP 2: Does the patient require the assistance of a helper? Yes. TRANSFERS: TOILET - STEP 3: How much assistance does the patient require from the helper? Only supervision, cuing, coaxing, OR he lp to set out transfer equipment or to lock brakes and/or lift foot rests TRANSFERS: TOILET - SCORE: 5-SUP TRANSFERS: SHOWER: Activity did not occur on this shift TRANSFERS: SHOWER - SCORE: 0-UNK TRANSFERS: TUB: Activity did not occur on this shift TRANSFERS: TUB - SCORE: 0-UNK LOCOMOTION: WALK: Activity did not occur on this shift LOCOMOTION: WALK - SCORE: 0-UNK LOCOMOTION: WHEELCHAIR: Activity did not occur on this shift LOCOMOTION: WHEELCHAIR - SCORE: 0-UNK COMPREHENSION: COMPREHENSION: TYPE: Both COMPREHENSION - STEP 1: Does the patient require help from a person or device, or need extra time to understand complex and a bstract ideas (such as current events, finances, discharge planning, medical issues, relationships, e tc)? No. COMPREHENSION - STEP 2: Does the patient need extra time, require an assistive device (such as glasses for visual comprehensi on or a hearing aid for auditory comprehension) or does s/he have mild difficulty understanding compl ex and abstract information? Yes. COMPREHENSION - SCORE: 6-BETTIE EXPRESSION EXPRESSION: TYPE: Both EXPRESSION - STEP 1: Does the patient require help from a person or device, or need extra time expressing complex and abst ract ideas (such as current events, finances, discharge planning, medical issues, relationships, etc) ? No. EXPRESSION - STEP 2: Does the patient need extra time, require an assistive device (such as augmentive communication syste m or a communication board), OR does s/he have mild difficulty expressing complex and abstract ideas (including mild dysarthria or mild word-find problems)? No. EXPRESSION - SCORE: 7-IND SOCIAL INTERACTION: SOCIAL INTERACTION - STEP 1: Does the patient require a helper to interact with others in social and therapeutic situations? No. SOCIAL INTERACTION - STEP 2: Does the patient need extra time in social situations, OR does s/he interact with staff, other patien ts, and family members ONLY in structured environments, OR does s/he require medication for social in teraction? Yes, patient needs extra time SOCIAL INTERACTION - SCORE: 6-BETTIE PROBLEM SOLVING: PROBLEM SOLVING - STEP 1: Does the patient need help from a person or device, or need extra time to solve complex problems such as managing a checking account or confronting interpersonal problems? Yes. PROBLEM SOLVING - STEP 2: Does the patient solve basic routine problems half or more of the time? Yes. PROBLEM SOLVING - STEP 3: How often does the patient need help to solve basic routine problems? 10%-24% of the time PROBLEM SOLVING - SCORE: 4-MIN MEMORY: MEMORY - STEP 1: Does the patient need help from a person or device, or need extra time to remember frequently encount ered people, daily routines, and executing requests? No. MEMORY - STEP 2: Does the patient have slight difficulty recognizing frequently encountered people, daily routines, or executing requests without the need for repetition or using self-initiated or environmental cues to remember? Yes. MEMORY - SCORE: 6-BETTIE SIGNATURE PANEL: The following modified sections: Eating - Score, Grooming - Score, Dressing - Upper Body - Score, Jim ssing - Lower Body - Score, Toileting - Score, Bladder Management - Score, Bowel Management - Score, Transfers: Bed, Chair, Wheelchair - Score, Transfers: Toilet - Score, Transfers: Shower - Score, [place] sfers: Tub - Score, Locomotion: Walk - Score, Locomotion: Wheelchair - Score, Comprehension - Score, Expression - Score, Social Interaction - Score, Problem Solving - Score, Memory - Score were [electro nically] signed by Latoya Daniel CNA on ThuJan 14 2019 00:43:35 GMT-0500 (Central Daylight Time)
[2019-01-14] MEDS: PYRIDOSTIGMINE 60 MG TABLET PO SCH ×3 (05:07→22:00)
[2019-01-14 06:06] LABS: Absolute Lymphocytes (CBC) 5.3 K/uL (0.7-4.9); Basophils % 1.3 % (0-1.3); Hematocrit 33.1 % (36.0-45.0); Lymphocytes % 30.1 % (15.3-44.8); MPV 9.7 fL (7.6-11.3); RBC Red Blood Cell Count 3.18 M/uL (3.86-4.86)
[2019-01-14 06:21] LABS: Potassium 3.4 mmol/L (3.5-5.1)
[2019-01-14] MEDS: INSULIN -REGULAR HUMAN 50 UNIT/0.5 ML ML SQ SCH ×4 (07:30→21:00)
[2019-01-14] MEDS: AMLODIPINE 10 MG TAB PO SCH (08:00)
[2019-01-14] MEDS: RAMIPRIL 5 MG CAP PO SCH (08:00)
[2019-01-14] MEDS: INSULIN LISPRO 100 UNIT/1 ML SQ SCH ×3 (08:00→17:00)
[2019-01-14] MEDS: INSULIN GLARGINE 100 UNITS/ML SQ SCH ×2 (08:00→21:00)
[2019-01-14] MEDS: LEVOTHYROXINE SOD 0.088 MG TAB PO SCH (08:30)
[2019-01-14] MEDS: CRANBERRY FRUIT EXTRACT 200 MG CAP PO SCH ×2 (08:31→21:59)
[2019-01-14] MEDS: ROPINIROLE HCL 1 MG TAB PO SCH (08:33)
[2019-01-14] MEDS: PROMOD 30 ML DOSE PO SCH ×2 (08:33→20:00)
[2019-01-14] MEDS: predniSONE 20 MG TAB PO SCH (08:34)
[2019-01-14] MEDS: POTASSIUM CL SA 10 MEQ TAB PO SCH (08:34)
[2019-01-14] MEDS: SERTRALINE HCL 50 MG TAB PO SCH (08:35)
[2019-01-14] MEDS: FUROSEMIDE 40 MG TABLET PO SCH ×2 (08:36→17:25)
[2019-01-14] MEDS: APIXABAN 2.5 MG TABLET PO SCH ×2 (08:37→21:59)
[2019-01-14 08:50] LABS: Anisocytosis 1+; Blood Morphology Comment NOTED (NOT SEEN); Platelet Estimate ADEQ; Urine White Blood Cell Casts OK
[2019-01-14 08:51] LABS: Polychromasia 1+
--- NOTE | 2019-01-14 09:50 | P.RH.PN ---
Estimated Length of Stay: 13 Expected Discharge Date: 01/22/19 Discharge Disposition Plan: Home Family Support: Yes Skilled Nursing Goal: Mobility, Transfers, Self Care Vital Signs: Last Vital Signs Temp 97.8 F 01/13/19 20:00 Pulse 85 01/14/19 08:36 Resp 18 01/13/19 20:00 BP 110/76 01/14/19 08:36 Pulse Ox 96 01/13/19 20:00 Laboratory: Laboratory Last Values WBC 17.7 K/uL (4.3-10.9) H 01/14/19 05:52 RBC 3.18 M/uL (3.86-4.86) L 01/14/19 05:52 Hgb 10.6 g/dL (12.0-15.0) L 01/14/19 05:52 Hct 33.1 % (36.0-45.0) L 01/14/19 05:52 MCV 104.2 fL (80-100) H 01/14/19 05:52 MCH 33.3 pg (27.0-35.0) 01/14/19 05:52 MCHC 31.9 g/dL (32.0-36.0) L 01/14/19 05:52 RDW 21.4 % (12.1-15.2) H 01/14/19 05:52 Plt Count 155 K/uL (152-406) 01/14/19 05:52 MPV 9.7 fL (7.6-11.3) 01/14/19 05:52 Neutrophils % 61.3 % (41.7-73.7) 01/14/19 05:52 Lymphocytes % 30.1 % (15.3-44.8) 01/14/19 05:52 Monocytes % 7.0 % (3.3-12.3) 01/14/19 05:52 Eosinophils % 0.3 % (0-4.4) 01/14/19 05:52 Basophils % 1.3 % (0-1.3) 01/14/19 05:52 Absolute Neutrophils 10.9 K/uL (1.8-8.0) H 01/14/19 05:52 Segmented Neutrophils 58 % (40-80) 01/11/19 05:36 Band Neutrophils 3 % (0-1) H 01/11/19 05:36 Absolute Lymphocytes 5.3 K/uL (0.7-4.9) H 01/14/19 05:52 Lymphocytes 32 % (15-42) 01/11/19 05:36 Monocytes 6 % (0-10) 01/11/19 05:36 Absolute Monocytes 1.2 K/uL (0.1-1.3) 01/14/19 05:52 Absolute Eosinophils 0.1 K/uL (0-0.5) 01/14/19 05:52 Absolute Basophils 0.2 K/uL (0-0.5) 01/14/19 05:52 Metamyelocytes 1 % (0-0) H 01/11/19 05:36 Nucleated RBCs 2 /100WBC 01/11/19 05:36 Polychromasia 1+ 01/14/19 05:52 Basophilic Stippling 1+ 01/11/19 05:36 Anisocytosis 1+ 01/14/19 05:52 Macrocytosis 2+ 01/11/19 05:36 Schistocytes 1+ 01/11/19 05:36 Morphology Comment Noted (NOT SEEN) 01/14/19 05:52 Sodium 145 mmol/L (136-145) 01/14/19 05:52 Potassium 3.4 mmol/L (3.5-5.1) L 01/14/19 05:52 Chloride 105 mmol/L (98-107) 01/14/19 05:52 Carbon Dioxide 33 mmol/L (21-32) H 01/14/19 05:52 BUN 35 mg/dL (7-18) H 01/14/19 05:52 Creatinine 0.86 mg/dL (0.55-1.3) 01/14/19 05:52 Estimated GFR 65 mL/min (=/>90) L 01/14/19 05:52 Glucose 99 mg/dL (74-106) 01/14/19 05:52 POC Glucose 104 mg/dl (65-120) 01/14/19 07:16 Lactic Acid 1.3 mmol/L (0.4-2.0) 01/14/19 05:52 Calcium 8.3 mg/dL (8.5-10.1) L 01/14/19 05:52 Magnesium 2.5 mg/dL (1.8-2.4) H 01/13/19 06:28 Lactate Dehydrogenase 723 U/L (84-246) H 01/13/19 15:15 Albumin 2.9 g/dL (3.4-5.0) L 01/13/19 06:28 Prealbumin 29.2 mg/dL (20-40) 01/13/19 06:28 Procalcitonin 0.06 ng/mL (<0.50) 01/13/19 15:15 Urine Color Yellow 01/10/19 21:05 Urine Appearance Clear 01/10/19 21:05 Urine pH 7.0 (5.0-7.0) 01/10/19 21:05 Ur Specific [place] 1.010 (1.005-1.030) 01/10/19 21:05 Urine Ketones Negative (NEG) 01/10/19 21:05 Urine Blood Negative (NEG) 01/10/19 21:05 Urine Nitrite Negative (NEG) 01/10/19 21:05 Urine Bilirubin Negative (NEG) 01/10/19 21:05 Urine Urobilinogen 0.2 mg/dL (0.2-1.0) 01/10/19 21:05 Ur Leukocyte Esterase Negative (NEG) 01/10/19 21:05 Urine RBC None seen /HPF (NONE SEEN) 01/10/19 21:05 Urine WBC None seen /HPF (<5) 01/10/19 21:05 Ur Squamous Epith Cells <5 /HPF (NONE SEEN) 01/10/19 21:05 Urine Bacteria None seen /HPF (<20) 01/10/19 21:05 Urine Culture Reflexed Not needed 01/10/19 21:05 Urine Glucose 2+ (NEG) H 01/10/19 21:05 Urine Total Protein Negative (NEG) 01/10/19 21:05 Weight: 211 lb Wound Present: Yes Closed Surgical Incision Present: No Negative Pressure Wound Therapy Present: No Physician Update: WBC decreased to 17.7. Procalcitonin and lactic acid are normal. Glucose 104. K is 3.4 will start KCl 10 meq daily. 250' standby assistance. Transfers are standby assistance. Poor short term memory with slow processing. Not aware of deficits. Requires hearing aids. is supportive. Medical Issues: DVT Prophylaxis - Eliquis 2.5mg BID PO Functional Improvement: Patient is continuing to work on progressing w/ short- term and long-term goals, however requires repeated VC and TC for proper technique w/ transfers, gait tx., etc. Functional Improvement Occupational Therapy: Pt can benifit with cont therapy services to address pt's overall weakness in the UB/LB. Cont to educate and train the pt on safety awareness and enrergy conservation techniques by educating pt on A/E for bathing and for LB dressing tasks. Cont with increasing pt's UB strenght and endurance and static standing balance for adl's and for functional tasks and transfers. Speech Therapy Update: Patient is at MIN A for Auditory Comprehension, SUPV to MOD I for Verbal Expression, MOD I for Social Interaction, and MOD A for Problem Solving and MAX A for Memory. Patient demonstrates reduced insight into her deficits and is not self-aware. Patient exhibits severe STM deficits but is not aware of them. She is benefitting from auditory rehearsal, repetition, visual stimuli, and verbal reminders/cues. At this time patient requires close SUPV for safety and memory. Summary: Patient's care plan and [facility] goals have been reviewed and revised as necessary. Please see the Rehabilitation Signature page for all necessary signatures.
--- NOTE | 2019-01-14 13:28 | FAST ---
ENCOUNTER DATE AND TIME: 01/14/2019 08:00 (CDT) NAME ARNOLD FLOYD DATE OF : 1945 DATE OF ADMISSION: 01/10/2019 17:46 (CDT) PHONE: AGE: 74 N# [id number] GENDER: Female ENCOUNTER PHYSICIAN: Dr. Noam Patricia M.D. ADMISSION DIAGNOSIS: - Neurologic Conditions 03 - Neuromuscular Disorders (03.8) Myasthenia gravis with (acute) exacerbation (G70.01). EATING: Activity did not occur on this shift EATING - SCORE: 0-UNK GROOMING: Comb/brush hair Wash, rinse, and dry hands GROOMING - STEP 1: Does the patient require the assistance of a person or device, or need extra time when grooming? Yes. GROOMING - STEP 2: Does the patient require the assistance of a helper? No. The patient only requires an assistive devic e, OR takes more than reasonable time to groom, OR there is a concern for safety as the patient groom s GROOMING - SCORE: 6-BETTIE BATHING: Activity did not occur on this shift BATHING - SCORE: 0-UNK DRESSING - UPPER BODY: Activity did not occur on this shift ARTICLES SCORE Total number of steps: 0 DRESSING - UPPER BODY - SCORE: 0-UNK DRESSING - LOWER BODY: Elastic waist pants (three steps) Underwear (three steps) ARTICLES SCORE Total number of steps: 6 DRESSING - LOWER BODY - STEP 1: Does the patient require help from a person or device, or need extra time when dressing below the mariya st? Yes. DRESSING - LOWER BODY - STEP 2: Does the patient require the assistance of a helper? Yes. DRESSING - LOWER BODY - STEP 3: Does the helper touch the patient while dressing? Yes. DRESSING - LOWER BODY - STEP 4: How many of the total steps does the patient complete on his/her own? 5 DRESSING - LOWER BODY - SCORE: 4-MIN TOILETING: TOILETING - STEP 1: Does the patient require the assistance of a person or device, or need extra time with toileting? Yes . TOILETING - STEP 2: Does the patient require the assistance of a helper? Yes. TOILETING - STEP 3: How much assistance does the patient require from the helper? Hands-on assistance from the helper TOILETING - STEP 4: Of the 3 tasks: 1) Adjusting clothing prior to use, 2) Cleansing of perineal area, 3) Adjusting clot merna after use; How many tasks does the patient perform WITHOUT assistance of the helper? Three tasks with steadying assistance from the helper TOILETING - SCORE: 4-MIN BLADDER MANAGEMENT: Activity did not occur on this shift BLADDER MANAGEMENT - SCORE: 7-IND BOWEL MANAGEMENT: Activity did not occur on this shift BOWEL MANAGEMENT - SCORE: 7-IND TRANSFERS: BED, CHAIR, WHEELCHAIR: Activity did not occur on this shift TRANSFERS: BED, CHAIR, WHEELCHAIR - SCORE: 0-UNK TRANSFERS: TOILET: TRANSFERS: TOILET - STEP 1: Does the patient require the assistance of a person or device, or need extra time with toilet transfe rs? Yes. TRANSFERS: TOILET - STEP 2: Does the patient require the assistance of a helper? Yes. TRANSFERS: TOILET - STEP 3: How much assistance does the patient require from the helper? Only supervision, cuing, coaxing, OR he lp to set out transfer equipment or to lock brakes and/or lift foot rests TRANSFERS: TOILET - SCORE: 5-SUP TRANSFERS: SHOWER: Activity did not occur on this shift TRANSFERS: SHOWER - SCORE: 0-UNK TRANSFERS: TUB: Activity did not occur on this shift TRANSFERS: TUB - SCORE: 0-UNK LOCOMOTION: WALK: Activity did not occur on this shift LOCOMOTION: WALK - SCORE: 0-UNK LOCOMOTION: WHEELCHAIR: Activity did not occur on this shift LOCOMOTION: WHEELCHAIR - SCORE: 0-UNK LOCOMOTION: STAIRS: Activity did not occur on this shift LOCOMOTION: STAIRS - SCORE: 0-UNK COMPREHENSION: COMPREHENSION: TYPE: Both COMPREHENSION - STEP 1: Does the patient require help from a person or device, or need extra time to understand complex and a bstract ideas (such as current events, finances, discharge planning, medical issues, relationships, e tc)? Yes. COMPREHENSION - STEP 2: Does the patient require help to understand questions or statements about basic needs or ideas (such as hunger, thirst, sleep, safety, daily schedule, room location, or discomfort) half or more of the t nandini? No. COMPREHENSION - STEP 3: How often does the patient need help to understand directions and conversation about basic needs? 10% - 24% of the time COMPREHENSION - SCORE: 4-MIN EXPRESSION EXPRESSION: TYPE: Both EXPRESSION - STEP 1: Does the patient require help from a person or device, or need extra time expressing complex and abst ract ideas (such as current events, finances, discharge planning, medical issues, relationships, etc) ? Yes. EXPRESSION - STEP 2: Does the patient require help to express basic necessities or ideas (such as hunger, thirst, sleep, s afety, daily schedule, room location, or discomfort) half or more of the time? No. EXPRESSION - STEP 3: How often does the patient need help to express directions and conversation about basic needs? 10-24% of the time EXPRESSION - SCORE: 4-MIN SOCIAL INTERACTION: SOCIAL INTERACTION - STEP 1: Does the patient require a helper to interact with others in social and therapeutic situations? Yes. SOCIAL INTERACTION - STEP 2: Does the patient interact appropriately half or more of the time? Yes. SOCIAL INTERACTION - STEP 3: How often does the patient need help to interact appropriately? Less than 10% of the time SOCIAL INTERACTION - SCORE: 5-SUP PROBLEM SOLVING: PROBLEM SOLVING - STEP 1: Does the patient need help from a person or device, or need extra time to solve complex problems such as managing a checking account or confronting interpersonal problems? Yes. PROBLEM SOLVING - STEP 2: Does the patient solve basic routine problems half or more of the time? Yes. PROBLEM SOLVING - STEP 3: How often does the patient need help to solve basic routine problems? 25%-49% of the time PROBLEM SOLVING - SCORE: 3-MOD MEMORY: MEMORY - STEP 1: Does the patient need help from a person or device, or need extra time to remember frequently encount ered people, daily routines, and executing requests? Yes. MEMORY - STEP 2: How often does the patient need help to remember frequently encountered people, daily routines, and e xecuting requests? 25% - 49% of the time MEMORY - SCORE: 3-MOD SIGNATURE PANEL: The following modified sections: Eating - Score, Grooming - Score, Bathing - Score, Dressing - Upper Body - Score, Dressing - Lower Body - Score, Toileting - Score, Transfers: Bed, Chair, Wheelchair - S core, Transfers: Toilet - Score, Transfers: Shower - Score, Transfers: Tub - Score, Comprehension - S core, Expression - Score, Social Interaction - Score, Problem Solving - Score, Memory - Score were [e lectronically] signed by Елена Maldonado OT on ThuJan 14 2019 13:28:06 [facility]-0500 ([place] Da ylight Time)
--- NOTE | 2019-01-14 16:32 | FAST ---
SHIFT START DATE/TIME: 01/14/2019 07:00 (CDT) SHIFT END DATE/TIME: 01/14/2019 19:00 (CDT) NAME ARNOLD FLOYD DATE OF : 1945 DATE OF ADMISSION: 01/10/2019 17:46 (CDT) PHONE: AGE: 74 N# [id number] GENDER: Female ENCOUNTER PHYSICIAN: Dr. Noam Patricia M.D. ADMISSION DIAGNOSIS: - Neurologic Conditions 03 - Neuromuscular Disorders (03.8) Myasthenia gravis with (acute) exacerbation (G70.01). EATING: EATING - STEP 1: Does the patient require the assistance of a person or device, or need extra time when eating? No. EATING - SCORE: 7-IND GROOMING: Comb/brush hair Wash, rinse, and dry hands GROOMING - STEP 1: Does the patient require the assistance of a person or device, or need extra time when grooming? Yes. GROOMING - STEP 2: Does the patient require the assistance of a helper? No. The patient only requires an assistive devic e, OR takes more than reasonable time to groom, OR there is a concern for safety as the patient groom s GROOMING - SCORE: 6-BETTIE BATHING: Activity did not occur on this shift BATHING - SCORE: 0-UNK DRESSING - UPPER BODY: Activity did not occur on this shift ARTICLES SCORE Total number of steps: 0 DRESSING - UPPER BODY - SCORE: 0-UNK DRESSING - LOWER BODY: Elastic waist pants (three steps) Underwear (three steps) ARTICLES SCORE Total number of steps: 6 DRESSING - LOWER BODY - STEP 1: Does the patient require help from a person or device, or need extra time when dressing below the mariya st? Yes. DRESSING - LOWER BODY - STEP 2: Does the patient require the assistance of a helper? Yes. DRESSING - LOWER BODY - STEP 3: Does the helper touch the patient while dressing? Yes. DRESSING - LOWER BODY - STEP 4: How many of the total steps does the patient complete on his/her own? 5 DRESSING - LOWER BODY - SCORE: 4-MIN TOILETING: TOILETING - STEP 1: Does the patient require the assistance of a person or device, or need extra time with toileting? Yes . TOILETING - STEP 2: Does the patient require the assistance of a helper? No. TOILETING - SCORE: 6-BETTIE BLADDER MANAGEMENT: BLADDER MANAGEMENT - STEP 1: Does the patient control the bladder completely and intentionally without equipment or devices or med ications, and is always continent? Yes. BLADDER MANAGEMENT - SCORE: 7-IND BLADDER MANAGEMENT - FREQUENCY OF ACCIDENTS: BLADDER MANAGEMENT(FA) - STEP 1: How many accidents has the patient had during the current shift? 0 BOWEL MANAGEMENT: BOWEL MANAGEMENT - STEP 1: Does the patient control bowels completely and intentionally without equipment devices or medications AND is always continent? No. BOWEL MANAGEMENT - STEP 2: Does the patient require the assistance of a helper? Yes. BOWEL MANAGEMENT - STEP 3: How much assistance does the patient require from the helper? Patient requires moderate assistance - performs 50% to 74% of bowel management tasks BOWEL MANAGEMENT - SCORE: 3-MOD BOWEL MANAGEMENT - FREQUENCY OF ACCIDENTS: BOWEL MANAGEMENT(FA) - STEP 1: How many accidents has the patient had during the current shift? 1 TRANSFERS: BED, CHAIR, WHEELCHAIR: TRANSFERS: BED, CHAIR, WHEELCHAIR - STEP 1: Does the patient require assistance of a person or device, or need extra time with bed, chair, or whe elchair transfers? Yes. TRANSFERS: BED, CHAIR, WHEELCHAIR - STEP 2: Does the patient require the assistance of a helper? Yes. TRANSFERS: BED, CHAIR, WHEELCHAIR - STEP 3: How much assistance does the patient require from the helper? Only supervision TRANSFERS: BED, CHAIR, WHEELCHAIR - SCORE: 5-SUP TRANSFERS: TOILET: TRANSFERS: TOILET - STEP 1: Does the patient require the assistance of a person or device, or need extra time with toilet transfe rs? Yes. TRANSFERS: TOILET - STEP 2: Does the patient require the assistance of a helper? Yes. TRANSFERS: TOILET - STEP 3: How much assistance does the patient require from the helper? Only supervision, cuing, coaxing, OR he lp to set out transfer equipment or to lock brakes and/or lift foot rests TRANSFERS: TOILET - SCORE: 5-SUP TRANSFERS: SHOWER: Activity did not occur on this shift TRANSFERS: SHOWER - SCORE: 0-UNK TRANSFERS: TUB: Activity did not occur on this shift TRANSFERS: TUB - SCORE: 0-UNK LOCOMOTION: WALK: Activity did not occur on this shift LOCOMOTION: WALK - SCORE: 0-UNK LOCOMOTION: WHEELCHAIR: Activity did not occur on this shift LOCOMOTION: WHEELCHAIR - SCORE: 0-UNK COMPREHENSION: COMPREHENSION - SCORE: 0-UNK EXPRESSION EXPRESSION - SCORE: 0-UNK SOCIAL INTERACTION: SOCIAL INTERACTION - SCORE: 0-UNK PROBLEM SOLVING: PROBLEM SOLVING - SCORE: 0-UNK MEMORY: MEMORY - SCORE: 0-UNK SIGNATURE PANEL: The following modified sections: Eating - Score, Grooming - Score, Bathing - Score, Dressing - Upper Body - Score, Dressing - Lower Body - Score, Toileting - Score, Bladder Management - Score, Bowel Man agement - Score, Transfers: Bed, Chair, Wheelchair - Score, Transfers: Toilet - Score, Transfers: Treasure wer - Score, Transfers: Tub - Score, Locomotion: Walk - Score, Locomotion: Wheelchair - Score, Compre hension - Score, Expression - Score, Social Interaction - Score, Problem Solving - Score, Memory - Sc ore were [electronically] signed by Denisse Hernandez CNA on ThuJan 14 2019 16:32:34 T-0500 ([place] Day[place])
[2019-01-14] MEDS: ROSUVASTATIN 10 MG TAB PO SCH (21:59)
[2019-01-14] MEDS: DOCUSATE NA/SENNA CONC 1 TAB PO SCH (21:59)
--- NOTE | 2019-01-15 02:21 | FAST ---
SHIFT START DATE/TIME: 01/14/2019 19:00 (CDT) SHIFT END DATE/TIME: 01/15/2019 07:00 (CDT) NAME ARNOLD FLOYD DATE OF : 1945 DATE OF ADMISSION: 01/10/2019 17:46 (CDT) PHONE: AGE: 74 N# [id number] GENDER: Female ENCOUNTER PHYSICIAN: Dr. Noam Patricia M.D. ADMISSION DIAGNOSIS: - Neurologic Conditions 03 - Neuromuscular Disorders (03.8) Myasthenia gravis with (acute) exacerbation (G70.01). EATING: Activity did not occur on this shift EATING - SCORE: 0-UNK GROOMING: Oral care Wash, rinse, and dry face Wash, rinse, and dry hands GROOMING - STEP 1: Does the patient require the assistance of a person or device, or need extra time when grooming? Yes. GROOMING - STEP 2: Does the patient require the assistance of a helper? No. The patient only requires an assistive devic e, OR takes more than reasonable time to groom, OR there is a concern for safety as the patient groom s GROOMING - SCORE: 6-BETTIE BATHING: Activity did not occur on this shift BATHING - SCORE: 0-UNK DRESSING - UPPER BODY: Patient is not dressing in public clothing ARTICLES SCORE Total number of steps: 0 DRESSING - UPPER BODY - SCORE: 0-UNK DRESSING - LOWER BODY: Patient is not dressing in public clothing ARTICLES SCORE Total number of steps: 0 DRESSING - LOWER BODY - SCORE: 0-UNK TOILETING: TOILETING - STEP 1: Does the patient require the assistance of a person or device, or need extra time with toileting? Yes . TOILETING - STEP 2: Does the patient require the assistance of a helper? Yes. TOILETING - STEP 3: How much assistance does the patient require from the helper? Only supervision TOILETING - SCORE: 5-SUP BLADDER MANAGEMENT: BLADDER MANAGEMENT - STEP 1: Does the patient control the bladder completely and intentionally without equipment or devices or med ications, and is always continent? No. BLADDER MANAGEMENT - STEP 2: Does the patient require the assistance of a helper? Yes. BLADDER MANAGEMENT - STEP 3: How much assistance does the patient require from the helper? Only set-up of equipment - such as plac ing it within reach of the patient or emptying a device - to maintain either satisfactory voiding pat tern or managing an external device, such as an absorbent pad, ileal device, or catheter BLADDER MANAGEMENT - SCORE: 5-SUP BOWEL MANAGEMENT: Activity did not occur on this shift BOWEL MANAGEMENT - SCORE: 7-IND TRANSFERS: BED, CHAIR, WHEELCHAIR: TRANSFERS: BED, CHAIR, WHEELCHAIR - STEP 1: Does the patient require assistance of a person or device, or need extra time with bed, chair, or whe elchair transfers? Yes. TRANSFERS: BED, CHAIR, WHEELCHAIR - STEP 2: Does the patient require the assistance of a helper? Yes. TRANSFERS: BED, CHAIR, WHEELCHAIR - STEP 3: How much assistance does the patient require from the helper? Lifting of the legs TRANSFERS: BED, CHAIR, WHEELCHAIR - STEP 4: How many legs does the patient require the helper to lift? both legs TRANSFERS: BED, CHAIR, WHEELCHAIR - SCORE: 3-MOD TRANSFERS: TOILET: TRANSFERS: TOILET - STEP 1: Does the patient require the assistance of a person or device, or need extra time with toilet transfe rs? Yes. TRANSFERS: TOILET - STEP 2: Does the patient require the assistance of a helper? Yes. TRANSFERS: TOILET - STEP 3: How much assistance does the patient require from the helper? Only supervision, cuing, coaxing, OR he lp to set out transfer equipment or to lock brakes and/or lift foot rests TRANSFERS: TOILET - SCORE: 5-SUP TRANSFERS: SHOWER: Activity did not occur on this shift TRANSFERS: SHOWER - SCORE: 0-UNK TRANSFERS: TUB: Activity did not occur on this shift TRANSFERS: TUB - SCORE: 0-UNK LOCOMOTION: WALK: Activity did not occur on this shift LOCOMOTION: WALK - SCORE: 0-UNK LOCOMOTION: WHEELCHAIR: Activity did not occur on this shift LOCOMOTION: WHEELCHAIR - SCORE: 0-UNK COMPREHENSION: COMPREHENSION: TYPE: Both COMPREHENSION - STEP 1: Does the patient require help from a person or device, or need extra time to understand complex and a bstract ideas (such as current events, finances, discharge planning, medical issues, relationships, e tc)? No. COMPREHENSION - STEP 2: Does the patient need extra time, require an assistive device (such as glasses for visual comprehensi on or a hearing aid for auditory comprehension) or does s/he have mild difficulty understanding compl ex and abstract information? Yes. COMPREHENSION - SCORE: 6-BETTIE EXPRESSION EXPRESSION: TYPE: Both EXPRESSION - STEP 1: Does the patient require help from a person or device, or need extra time expressing complex and abst ract ideas (such as current events, finances, discharge planning, medical issues, relationships, etc) ? No. EXPRESSION - STEP 2: Does the patient need extra time, require an assistive device (such as augmentive communication syste m or a communication board), OR does s/he have mild difficulty expressing complex and abstract ideas (including mild dysarthria or mild word-find problems)? Yes. EXPRESSION - SCORE: 6-BETTIE SOCIAL INTERACTION: SOCIAL INTERACTION - STEP 1: Does the patient require a helper to interact with others in social and therapeutic situations? No. SOCIAL INTERACTION - STEP 2: Does the patient need extra time in social situations, OR does s/he interact with staff, other patien ts, and family members ONLY in structured environments, OR does s/he require medication for social in teraction? Yes, patient needs extra time SOCIAL INTERACTION - SCORE: 6-BETTIE PROBLEM SOLVING: PROBLEM SOLVING - STEP 1: Does the patient need help from a person or device, or need extra time to solve complex problems such as managing a checking account or confronting interpersonal problems? Yes. PROBLEM SOLVING - STEP 2: Does the patient solve basic routine problems half or more of the time? Yes. PROBLEM SOLVING - STEP 3: How often does the patient need help to solve basic routine problems? 10%-24% of the time PROBLEM SOLVING - SCORE: 4-MIN MEMORY: MEMORY - STEP 1: Does the patient need help from a person or device, or need extra time to remember frequently encount ered people, daily routines, and executing requests? Yes. MEMORY - STEP 2: How often does the patient need help to remember frequently encountered people, daily routines, and e xecuting requests? Less than 10% of the time MEMORY - SCORE: 5-SUP
[2019-01-15] MEDS: PYRIDOSTIGMINE 60 MG TABLET PO SCH ×3 (04:41→19:25)
[2019-01-15] MEDS: LEVOTHYROXINE SOD 0.088 MG TAB PO SCH (07:12)
[2019-01-15] MEDS: INSULIN -REGULAR HUMAN 50 UNIT/0.5 ML ML SQ SCH ×4 (07:30→21:14)
[2019-01-15] MEDS: APIXABAN 2.5 MG TABLET PO SCH ×3 (08:00→19:25)
[2019-01-15] MEDS: PROMOD 30 ML DOSE PO SCH ×2 (08:00→19:28)
[2019-01-15] MEDS: INSULIN GLARGINE 100 UNITS/ML SQ SCH ×2 (08:17→21:15)
[2019-01-15] MEDS: INSULIN LISPRO 100 UNIT/1 ML SQ SCH ×3 (08:18→17:16)
[2019-01-15] MEDS: RAMIPRIL 5 MG CAP PO SCH (08:19)
[2019-01-15] MEDS: CRANBERRY FRUIT EXTRACT 200 MG CAP PO SCH ×2 (08:20→19:25)
[2019-01-15] MEDS: ROPINIROLE HCL 1 MG TAB PO SCH (08:20)
[2019-01-15] MEDS: AMLODIPINE 10 MG TAB PO SCH (08:20)
[2019-01-15] MEDS: POTASSIUM CL SA 10 MEQ TAB PO SCH (08:20)
[2019-01-15] MEDS: FUROSEMIDE 40 MG TABLET PO SCH ×2 (08:21→16:53)
[2019-01-15] MEDS: SERTRALINE HCL 50 MG TAB PO SCH (08:21)
[2019-01-15] MEDS: predniSONE 20 MG TAB PO SCH (10:01)
[2019-01-15] MEDS: predniSONE 10 MG TAB PO SCH (10:01)
[2019-01-15] MEDS: DOCUSATE NA/SENNA CONC 1 TAB PO SCH (21:00)
[2019-01-15] MEDS: ROSUVASTATIN 10 MG TAB PO SCH (21:15)
--- NOTE | 2019-01-16 00:37 | FAST ---
SHIFT START DATE/TIME: 01/15/2019 19:00 (CDT) SHIFT END DATE/TIME: 01/16/2019 07:00 (CDT) NAME ARNOLD FLOYD DATE OF : 1945 DATE OF ADMISSION: 01/10/2019 17:46 (CDT) PHONE: AGE: 74 N# [id number] GENDER: Female ENCOUNTER PHYSICIAN: Dr. Noam Patricia M.D. ADMISSION DIAGNOSIS: - Neurologic Conditions 03 - Neuromuscular Disorders (03.8) Myasthenia gravis with (acute) exacerbation (G70.01). EATING: Activity did not occur on this shift EATING - SCORE: 0-UNK GROOMING: Wash, rinse, and dry hands GROOMING - STEP 1: Does the patient require the assistance of a person or device, or need extra time when grooming? Yes. GROOMING - STEP 2: Does the patient require the assistance of a helper? No. The patient only requires an assistive devic e, OR takes more than reasonable time to groom, OR there is a concern for safety as the patient groom s GROOMING - SCORE: 6-BETTIE BATHING: Activity did not occur on this shift BATHING - SCORE: 0-UNK DRESSING - UPPER BODY: Patient is not dressing in public clothing ARTICLES SCORE Total number of steps: 0 DRESSING - UPPER BODY - SCORE: 0-UNK DRESSING - LOWER BODY: Patient is not dressing in public clothing ARTICLES SCORE Total number of steps: 0 DRESSING - LOWER BODY - SCORE: 0-UNK TOILETING: TOILETING - STEP 1: Does the patient require the assistance of a person or device, or need extra time with toileting? Yes . TOILETING - STEP 2: Does the patient require the assistance of a helper? Yes. TOILETING - STEP 3: How much assistance does the patient require from the helper? Only supervision TOILETING - SCORE: 5-SUP BLADDER MANAGEMENT: BLADDER MANAGEMENT - STEP 1: Does the patient control the bladder completely and intentionally without equipment or devices or med ications, and is always continent? No. BLADDER MANAGEMENT - STEP 2: Does the patient require the assistance of a helper? No, patient requires and independently uses an a ssistive device, such as a urinal, bedpan, bedside commode, catheter, absorbent pad, or collecting de vice BLADDER MANAGEMENT - SCORE: 6-BETTIE BOWEL MANAGEMENT: BOWEL MANAGEMENT - STEP 1: Does the patient control bowels completely and intentionally without equipment devices or medications AND is always continent? No. BOWEL MANAGEMENT - STEP 2: Does the patient require the assistance of a helper? No, patient requires medication for control such as stool softeners, suppositories, laxatives, enemas, or OTC medications BOWEL MANAGEMENT - SCORE: 6-BETTIE TRANSFERS: BED, CHAIR, WHEELCHAIR: TRANSFERS: BED, CHAIR, WHEELCHAIR - STEP 1: Does the patient require assistance of a person or device, or need extra time with bed, chair, or whe elchair transfers? Yes. TRANSFERS: BED, CHAIR, WHEELCHAIR - STEP 2: Does the patient require the assistance of a helper? Yes. TRANSFERS: BED, CHAIR, WHEELCHAIR - STEP 3: How much assistance does the patient require from the helper? Lifting of the legs TRANSFERS: BED, CHAIR, WHEELCHAIR - STEP 4: How many legs does the patient require the helper to lift? both legs TRANSFERS: BED, CHAIR, WHEELCHAIR - SCORE: 3-MOD TRANSFERS: TOILET: TRANSFERS: TOILET - STEP 1: Does the patient require the assistance of a person or device, or need extra time with toilet transfe rs? Yes. TRANSFERS: TOILET - STEP 2: Does the patient require the assistance of a helper? No. Patient only requires an assistive device bahena ch as a grab bar or special seat, OR s/he takes more than reasonable time to perform toilet transfers , OR there is a safety concern when s/he performs toilet transfers. TRANSFERS: TOILET - SCORE: 6-BETTIE TRANSFERS: SHOWER: Activity did not occur on this shift TRANSFERS: SHOWER - SCORE: 0-UNK TRANSFERS: TUB: Activity did not occur on this shift TRANSFERS: TUB - SCORE: 0-UNK LOCOMOTION: WALK: Activity did not occur on this shift LOCOMOTION: WALK - SCORE: 0-UNK LOCOMOTION: WHEELCHAIR: Activity did not occur on this shift LOCOMOTION: WHEELCHAIR - SCORE: 0-UNK COMPREHENSION: COMPREHENSION: TYPE: Both COMPREHENSION - STEP 1: Does the patient require help from a person or device, or need extra time to understand complex and a bstract ideas (such as current events, finances, discharge planning, medical issues, relationships, e tc)? Yes. COMPREHENSION - STEP 2: Does the patient require help to understand questions or statements about basic needs or ideas (such as hunger, thirst, sleep, safety, daily schedule, room location, or discomfort) half or more of the t nandini? No. COMPREHENSION - STEP 3: How often does the patient need help to understand directions and conversation about basic needs? Les s than 10% of the time COMPREHENSION - SCORE: 5-SUP EXPRESSION EXPRESSION: TYPE: Both EXPRESSION - STEP 1: Does the patient require help from a person or device, or need extra time expressing complex and abst ract ideas (such as current events, finances, discharge planning, medical issues, relationships, etc) ? No. EXPRESSION - STEP 2: Does the patient need extra time, require an assistive device (such as augmentive communication syste m or a communication board), OR does s/he have mild difficulty expressing complex and abstract ideas (including mild dysarthria or mild word-find problems)? Yes. EXPRESSION - SCORE: 6-BETTIE SOCIAL INTERACTION: SOCIAL INTERACTION - STEP 1: Does the patient require a helper to interact with others in social and therapeutic situations? No. SOCIAL INTERACTION - STEP 2: Does the patient need extra time in social situations, OR does s/he interact with staff, other patien ts, and family members ONLY in structured environments, OR does s/he require medication for social in teraction? Yes, patient requires medication for social interaction SOCIAL INTERACTION - SCORE: 6-BETTIE PROBLEM SOLVING: PROBLEM SOLVING - STEP 1: Does the patient need help from a person or device, or need extra time to solve complex problems such as managing a checking account or confronting interpersonal problems? Yes. PROBLEM SOLVING - STEP 2: Does the patient solve basic routine problems half or more of the time? Yes. PROBLEM SOLVING - STEP 3: How often does the patient need help to solve basic routine problems? 10%-24% of the time PROBLEM SOLVING - SCORE: 4-MIN MEMORY: MEMORY - STEP 1: Does the patient need help from a person or device, or need extra time to remember frequently encount ered people, daily routines, and executing requests? No. MEMORY - STEP 2: Does the patient have slight difficulty recognizing frequently encountered people, daily routines, or executing requests without the need for repetition or using self-initiated or environmental cues to remember? Yes. MEMORY - SCORE: 6-BETTIE SIGNATURE PANEL: The following modified sections: Eating - Score, Grooming - Score, Dressing - Upper Body - Score, Jim ssing - Lower Body - Score, Toileting - Score, Bladder Management - Score, Bowel Management - Score, Transfers: Bed, Chair, Wheelchair - Score, Transfers: Toilet - Score, Transfers: Shower - Score, [place] sfers: Tub - Score, Locomotion: Walk - Score, Locomotion: Wheelchair - Score, Comprehension - Score, Expression - Score, Social Interaction - Score, Problem Solving - Score, Memory - Score were [electro nically] signed by Latoya Daniel CNA on ThuJan 16 2019 00:36:52 GMT-0500 (Central Daylight Time)
[2019-01-16] MEDS: PYRIDOSTIGMINE 60 MG TABLET PO SCH ×3 (03:56→19:26)
[2019-01-16] MEDS: LEVOTHYROXINE SOD 0.088 MG TAB PO SCH (06:41)
[2019-01-16] MEDS: INSULIN -REGULAR HUMAN 50 UNIT/0.5 ML ML SQ SCH ×4 (07:30→20:46)
[2019-01-16] MEDS ORDERED: predniSONE 20 MG TAB PO SCH (08:00)
[2019-01-16] MEDS: ROPINIROLE HCL 1 MG TAB PO SCH (08:19)
[2019-01-16] MEDS: RAMIPRIL 5 MG CAP PO SCH (08:19)
[2019-01-16] MEDS: SERTRALINE HCL 50 MG TAB PO SCH (08:20)
[2019-01-16] MEDS: predniSONE 10 MG TAB PO SCH (08:21)
[2019-01-16] MEDS: predniSONE 20 MG TAB PO SCH (08:21)
[2019-01-16] MEDS: FUROSEMIDE 40 MG TABLET PO SCH ×2 (08:21→16:37)
[2019-01-16] MEDS: APIXABAN 2.5 MG TABLET PO SCH ×2 (08:22→19:26)
[2019-01-16] MEDS: POTASSIUM CL SA 10 MEQ TAB PO SCH (08:22)
[2019-01-16] MEDS: CRANBERRY FRUIT EXTRACT 200 MG CAP PO SCH ×2 (08:23→19:25)
[2019-01-16] MEDS: INSULIN GLARGINE 100 UNITS/ML SQ SCH ×2 (09:11→20:46)
[2019-01-16] MEDS: INSULIN LISPRO 100 UNIT/1 ML SQ SCH ×3 (09:12→17:08)
[2019-01-16] MEDS: PROMOD 30 ML DOSE PO SCH ×2 (09:13→19:26)
[2019-01-16] MEDS: AMLODIPINE 10 MG TAB PO SCH (16:37)
[2019-01-16] MEDS: ROSUVASTATIN 10 MG TAB PO SCH (20:45)
[2019-01-16] MEDS: DOCUSATE NA/SENNA CONC 1 TAB PO SCH (20:46)
[2019-01-17] MEDS: PYRIDOSTIGMINE 60 MG TABLET PO SCH ×3 (04:04→21:15)
[2019-01-17] MEDS: INSULIN -REGULAR HUMAN 50 UNIT/0.5 ML ML SQ SCH ×4 (07:30→20:52)
[2019-01-17] MEDS: LEVOTHYROXINE SOD 0.088 MG TAB PO SCH (07:48)
[2019-01-17] MEDS: PROMOD 30 ML DOSE PO SCH ×2 (08:00→21:16)
[2019-01-17] MEDS: INSULIN GLARGINE 100 UNITS/ML SQ SCH ×2 (08:45→21:00)
[2019-01-17] MEDS: INSULIN LISPRO 100 UNIT/1 ML SQ SCH ×3 (08:45→16:54)
[2019-01-17] MEDS: ROPINIROLE HCL 1 MG TAB PO SCH (08:48)
[2019-01-17] MEDS: CRANBERRY FRUIT EXTRACT 200 MG CAP PO SCH ×2 (08:48→21:15)
[2019-01-17] MEDS: FUROSEMIDE 40 MG TABLET PO SCH ×2 (08:48→16:55)
[2019-01-17] MEDS: RAMIPRIL 5 MG CAP PO SCH (08:48)
[2019-01-17] MEDS: APIXABAN 2.5 MG TABLET PO SCH ×2 (08:49→21:15)
[2019-01-17] MEDS: predniSONE 20 MG TAB PO SCH (08:49)
[2019-01-17] MEDS: POTASSIUM CL SA 10 MEQ TAB PO SCH (08:49)
[2019-01-17] MEDS: AMLODIPINE 10 MG TAB PO SCH (08:49)
[2019-01-17] MEDS: predniSONE 10 MG TAB PO SCH (08:49)
[2019-01-17] MEDS: SERTRALINE HCL 50 MG TAB PO SCH (08:49)
--- NOTE | 2019-01-17 15:16 | FAST ---
SHIFT START DATE/TIME: 01/17/2019 07:00 (CDT) SHIFT END DATE/TIME: 01/17/2019 19:00 (CDT) NAME ARNOLD FLOYD DATE OF : 1945 DATE OF ADMISSION: 01/10/2019 17:46 (CDT) PHONE: AGE: 74 N# [id number] GENDER: Female ENCOUNTER PHYSICIAN: Dr. Noam Patricia M.D. ADMISSION DIAGNOSIS: - Neurologic Conditions 03 - Neuromuscular Disorders (03.8) Myasthenia gravis with (acute) exacerbation (G70.01). EATING: EATING - STEP 1: Does the patient require the assistance of a person or device, or need extra time when eating? Yes. EATING - STEP 2: Does the patient require the assistance of a helper? No, patient only requires an assistive device, O R s/he takes more than reasonable time to eat, OR there is a safety concern, OR s/he requires modifie d food consistency EATING - SCORE: 6-BETTIE GROOMING: Activity did not occur on this shift GROOMING - SCORE: 0-UNK BATHING: Activity did not occur on this shift BATHING - SCORE: 0-UNK DRESSING - UPPER BODY: Activity did not occur on this shift ARTICLES SCORE Total number of steps: 0 DRESSING - UPPER BODY - SCORE: 0-UNK DRESSING - LOWER BODY: Activity did not occur on this shift ARTICLES SCORE Total number of steps: 0 DRESSING - LOWER BODY - SCORE: 0-UNK TOILETING: TOILETING - STEP 1: Does the patient require the assistance of a person or device, or need extra time with toileting? Yes . TOILETING - STEP 2: Does the patient require the assistance of a helper? Yes. TOILETING - STEP 3: How much assistance does the patient require from the helper? Hands-on assistance from the helper TOILETING - STEP 4: Of the 3 tasks: 1) Adjusting clothing prior to use, 2) Cleansing of perineal area, 3) Adjusting clot merna after use; How many tasks does the patient perform WITHOUT assistance of the helper? Three tasks with steadying assistance from the helper TOILETING - SCORE: 4-MIN BLADDER MANAGEMENT: BLADDER MANAGEMENT - STEP 1: Does the patient control the bladder completely and intentionally without equipment or devices or med ications, and is always continent? No. BLADDER MANAGEMENT - STEP 2: Does the patient require the assistance of a helper? No, patient requires and independently uses an a ssistive device, such as a urinal, bedpan, bedside commode, catheter, absorbent pad, or collecting de vice BLADDER MANAGEMENT - SCORE: 6-BETTIE BOWEL MANAGEMENT: Activity did not occur on this shift BOWEL MANAGEMENT - SCORE: 7-IND TRANSFERS: BED, CHAIR, WHEELCHAIR: TRANSFERS: BED, CHAIR, WHEELCHAIR - STEP 1: Does the patient require assistance of a person or device, or need extra time with bed, chair, or whe elchair transfers? Yes. TRANSFERS: BED, CHAIR, WHEELCHAIR - STEP 2: Does the patient require the assistance of a helper? Yes. TRANSFERS: BED, CHAIR, WHEELCHAIR - STEP 3: How much assistance does the patient require from the helper? Steadying/guiding assistance TRANSFERS: BED, CHAIR, WHEELCHAIR - SCORE: 4-MIN TRANSFERS: TOILET: TRANSFERS: TOILET - STEP 1: Does the patient require the assistance of a person or device, or need extra time with toilet transfe rs? Yes. TRANSFERS: TOILET - STEP 2: Does the patient require the assistance of a helper? Yes. TRANSFERS: TOILET - STEP 3: How much assistance does the patient require from the helper? Patient performs half or more of the tr ansferring tasks TRANSFERS: TOILET - STEP 4: Does the patient need only incidental help such as contact guard or steadying during toilet transfer? No. Patient needs more than incidental help TRANSFERS: TOILET - SCORE: 3-MOD TRANSFERS: SHOWER: Activity did not occur on this shift TRANSFERS: SHOWER - SCORE: 0-UNK TRANSFERS: TUB: Activity did not occur on this shift TRANSFERS: TUB - SCORE: 0-UNK LOCOMOTION: WALK: Activity did not occur on this shift LOCOMOTION: WALK - SCORE: 0-UNK LOCOMOTION: WHEELCHAIR: Activity did not occur on this shift LOCOMOTION: WHEELCHAIR - SCORE: 0-UNK COMPREHENSION: COMPREHENSION: TYPE: Both COMPREHENSION - STEP 1: Does the patient require help from a person or device, or need extra time to understand complex and a bstract ideas (such as current events, finances, discharge planning, medical issues, relationships, e tc)? Yes. COMPREHENSION - STEP 2: Does the patient require help to understand questions or statements about basic needs or ideas (such as hunger, thirst, sleep, safety, daily schedule, room location, or discomfort) half or more of the t nandini? No. COMPREHENSION - STEP 3: How often does the patient need help to understand directions and conversation about basic needs? Les s than 10% of the time COMPREHENSION - SCORE: 5-SUP EXPRESSION EXPRESSION: TYPE: Both EXPRESSION - STEP 1: Does the patient require help from a person or device, or need extra time expressing complex and abst ract ideas (such as current events, finances, discharge planning, medical issues, relationships, etc) ? Yes. EXPRESSION - STEP 2: Does the patient require help to express basic necessities or ideas (such as hunger, thirst, sleep, s afety, daily schedule, room location, or discomfort) half or more of the time? No. EXPRESSION - STEP 3: How often does the patient need help to express directions and conversation about basic needs? Less t alcant[place] 10% of the time EXPRESSION - SCORE: 5-SUP SOCIAL INTERACTION: SOCIAL INTERACTION - STEP 1: Does the patient require a helper to interact with others in social and therapeutic situations? Yes. SOCIAL INTERACTION - STEP 2: Does the patient interact appropriately half or more of the time? Yes. SOCIAL INTERACTION - STEP 3: How often does the patient need help to interact appropriately? Less than 10% of the time SOCIAL INTERACTION - SCORE: 5-SUP PROBLEM SOLVING: PROBLEM SOLVING - STEP 1: Does the patient need help from a person or device, or need extra time to solve complex problems such as managing a checking account or confronting interpersonal problems? Yes. PROBLEM SOLVING - STEP 2: Does the patient solve basic routine problems half or more of the time? Yes. PROBLEM SOLVING - STEP 3: How often does the patient need help to solve basic routine problems? Less than 10% of the time PROBLEM SOLVING - SCORE: 5-SUP MEMORY: MEMORY - STEP 1: Does the patient need help from a person or device, or need extra time to remember frequently encount ered people, daily routines, and executing requests? Yes. MEMORY - STEP 2: How often does the patient need help to remember frequently encountered people, daily routines, and e xecuting requests? Less than 10% of the time MEMORY - SCORE: 5-SUP SIGNATURE PANEL: The following modified sections: Eating - Score, Grooming - Score, Bathing - Score, Dressing - Upper Body - Score, Dressing - Lower Body - Score, Toileting - Score, Bladder Management - Score, Bowel Man agement - Score, Transfers: Bed, Chair, Wheelchair - Score, Transfers: Toilet - Score, Transfers: Treasure wer - Score, Transfers: Tub - Score, Locomotion: Walk - Score, Locomotion: Wheelchair - Score, Compre hension - Score, Expression - Score, Social Interaction - Score, Problem Solving - Score, Memory - Sc ore were [electronically] signed by Brendon Corona on ThuJan 17 2019 15:15:38 GMT-0500 (Central Daylight Time)
--- NOTE | 2019-01-17 18:24 | R.PN ---
ENCOUNTER DATE AND TIME: 01/17/2019 18:20 (CDT) NAME ARNOLD FLOYD DATE OF : 1945 DATE OF ADMISSION: 01/10/2019 17:46 (CDT) Myasthenia gravis with (acute) exacerbation (G70.01)CHIEF COMPLAINT: Fatiguable weakness SUBJECTIVE: Pt denied any depression. Pt denied any Shortness of Breath. Ambulated 320' with modified independence using a rolling walker. Up and down 5 steps with bilateral hand rails. VITAL SIGNS Temperature: 98.0 F SBP/DBP: 137/62 Pulse: 79 Resp: 16 MEDICATION ALLERGIES: No Known Drug Allergies (NKDA) ENVIRONMENTAL ALLERGIES: - Substance Allergies None Known - Other Allergies None Known NURSING: - Shower allowing shower - Lab Results blood Sugar Check ACHS ACTIVITIES OOB only with supervision THERAPIES: - Dietary and Nutrition Adequate Nutrition. Nutritional Education. Nutritional Supplements. PHYSICAL EXAM - Gen Alert and awake Lying in bed No apparent distress Oriented to: person, time, and place - Skin Mild bruising on the arms. No abnormalities - Eyes No abnormalities - ENMT No abnormalities - Neck No abnormalities - CVS RRR - Chest No abnormalities - Abd + bowel sounds - GI Soft Deferred - No abnormalities - Ext Mild edema in both lower extremities. - MSK 4/5 weakness in both lower extremities. - Neuro No focal deficits - Psych No abnormalities ASSESSMENT: Pt. is a 74 yo Right-handed white female.On 12/24/2018 she was admitted to [facility] with diag nosis Myasthenia gravis with (acute) exacerbation (G70.01).Her impairment category is Neurologic Cond itions 03 - Neuromuscular Disorders (03.8).Pre-morbidly, Pt. was independent/mod-I in Self-Care, Sph incter Control, Transfers Control, Locomotion, Communication, and Social Cognition; and she had good Sphincter Control.Currently, she has deficits of Transfers Control, Locomotion, Communication, Social Cognition, Endurance, Balance, Safety Awareness, and Self-Care.Pt. is now referred to [facility] for acute in-patient rehabilitation in order to maximize patient's functional ind ependence in activities of daily living, strength, ROM, and mobility.- Rehab Goal Patient has realistic goal of being discharged at assistance level 6-Vanessa to reside at Home with Fam kelsi/Relatives. MDM/PLAN: - Physical Therapy Gait dysfunction - to improve, our physical therapists will perform initial evaluation of pt's statu s upon admission and devise an individualized program for Gait Training, and Wheel Chair mobility Inability to transfer - to improve, our physical therapists will perform initial evaluation of pt's status upon admission and devise an individualized program for Bed mobility Need for home safety evaluation - to improve, our physical therapists will perform initial evaluatio n of pt's status upon admission and devise an individualized program for Home Evaluation Need in caregiver upon discharge - to improve, our physical therapists will perform initial evaluati on of pt's status upon admission and devise an individualized program for Caregiver Training New precaution - to improve, our physical therapists will perform initial evaluation of pt's status upon admission and devise an individualized program for Patient precaution education Edema - to improve, our physical therapists will perform initial evaluation of pt's status upon admis willie and devise an individualized program for Elevation Training, and Lymphedema Therapy Poor balance - to improve, our physical therapists will perform initial evaluation of pt's status up on admission and devise an individualized program for Balance Training Poor endurance - to improve, our physical therapists will perform initial evaluation of pt's status upon admission and devise an individualized program for Endurance Training Weakness - to improve, our physical therapists will perform initial evaluation of pt's status upon a dmission and devise an individualized program for Aquatic Therapy, Neuromuscular Reeducation, and Str engthening Achieving independence - to improve, our physical therapists will perform initial evaluation of pt's status upon admission and devise an individualized program for Community Reintegration Activities - Occupational Therapy ADL deficits - to improve, our occupation therapists will perform initial evaluation of pt's status upon admission and devise an individualized program for Bathing, Bed mobility, Community Reintegratio n, Cooking, Dressing, Eating, Fine Motor Skills, Grooming, Homemaking, Kitchen Mobility, Laundry, Pat ient Education, Safety Awareness, Splinting - Positioning, Transfers(Toilet, Tub, Shower), and Wheel Chair Management Cognitive deficits - to improve, our occupation therapists will perform initial evaluation of pt's s tatus upon admission and devise an individualized program for Cognition - orientation Need for neurocritical care physician - to improve, our occupation therapists will perform initial evaluation of pt's status upon admission and devise an individualized program for Caregiver Training Weakness - to improve, our occupation therapists will perform initial evaluation of pt's status upon admission and devise an individualized program for Aquatic Therapy, Balance, Endurance, UE ROM, and UE strengthening - Other See attached MAR (Medication Administration Record) - Diet Type Continue Regular - Diet - Liquid Texture Continue Regular - Tube Feed Continue N/A - Lab Results blood Sugar Check ACHS - Diet - Solid Texture Continue Regular - Shower allowing shower FUNCTIONAL STATUS: UPDATED AT WEEKLY TEAM CONFERENCE - Bladder Same accident frequency: 7-Ind - No accidents in the past 7 days - Bowel Same accident frequency: 7-Ind - No accidents in the past 7 days - Walking Same score based on distance walked: 2(50-149ft) - Wheelchair Same score based on distance traveled: 1(<=50ft) FUNCTIONAL STATUS: - Self-Care A. Eating Ind B. Grooming sup C. Bathing Diane D. Dressing - Upper Diane E. Dressing - Lower modA F. Toileting sup - Sphincter Control G: Bladder control Ind H: Bowel control Ind - Transfers Control I. Bed/Chair/Wheelchair Diane J. Toilet Diane K. Tub/Shower Diane - Locomotion L. Walk/Wheelchair (C) modA L. Walk/Wheelchair (W) modA M. Stairs ADNO - Communication N. Comprehension (B) sup O. Expression (B) sup - Social Cognition P. Social Interaction sup Q. Problem Solving sup R. Memory sup - Endurance Poor - Balance Fair - Safety Awareness Fair CURRENT FUNC. DEFICITS: Transfers Control, Locomotion, Communication, Social Cognition, Endurance, Balance, Safety Awareness, and Self-Care SIGNATURE PANEL: (CDT)
[2019-01-17] MEDS: DOCUSATE NA/SENNA CONC 1 TAB PO SCH (21:15)
[2019-01-17] MEDS: ROSUVASTATIN 10 MG TAB PO SCH (21:15)
--- NOTE | 2019-01-18 02:17 | FAST ---
SHIFT START DATE/TIME: 01/17/2019 19:00 (CDT) SHIFT END DATE/TIME: 01/18/2019 07:00 (CDT) NAME ARNOLD FLOYD DATE OF : 1945 DATE OF ADMISSION: 01/10/2019 17:46 (CDT) PHONE: AGE: 74 N# [id number] GENDER: Female ENCOUNTER PHYSICIAN: Dr. Noam Patricia M.D. ADMISSION DIAGNOSIS: - Neurologic Conditions 03 - Neuromuscular Disorders (03.8) Myasthenia gravis with (acute) exacerbation (G70.01). EATING: Activity did not occur on this shift EATING - SCORE: 0-UNK GROOMING: Oral care Wash, rinse, and dry face GROOMING - STEP 1: Does the patient require the assistance of a person or device, or need extra time when grooming? Yes. GROOMING - STEP 2: Does the patient require the assistance of a helper? Yes. GROOMING - STEP 3: How much assistance does the patient require from the helper? Only prior equipment preparation/set up from the helper GROOMING - SCORE: 5-SUP BATHING: Activity did not occur on this shift BATHING - SCORE: 0-UNK DRESSING - UPPER BODY: Patient is not dressing in public clothing ARTICLES SCORE Total number of steps: 0 DRESSING - UPPER BODY - SCORE: 0-UNK DRESSING - LOWER BODY: Patient is not dressing in public clothing ARTICLES SCORE Total number of steps: 0 DRESSING - LOWER BODY - SCORE: 0-UNK TOILETING: TOILETING - STEP 1: Does the patient require the assistance of a person or device, or need extra time with toileting? Yes . TOILETING - STEP 2: Does the patient require the assistance of a helper? Yes. TOILETING - STEP 3: How much assistance does the patient require from the helper? Only supervision TOILETING - SCORE: 5-SUP BLADDER MANAGEMENT: BLADDER MANAGEMENT - STEP 1: Does the patient control the bladder completely and intentionally without equipment or devices or med ications, and is always continent? No. BLADDER MANAGEMENT - STEP 2: Does the patient require the assistance of a helper? Yes. BLADDER MANAGEMENT - STEP 3: How much assistance does the patient require from the helper? Only set-up of equipment - such as plac ing it within reach of the patient or emptying a device - to maintain either satisfactory voiding pat tern or managing an external device, such as an absorbent pad, ileal device, or catheter BLADDER MANAGEMENT - SCORE: 5-SUP BOWEL MANAGEMENT: Activity did not occur on this shift BOWEL MANAGEMENT - SCORE: 7-IND TRANSFERS: BED, CHAIR, WHEELCHAIR: TRANSFERS: BED, CHAIR, WHEELCHAIR - STEP 1: Does the patient require assistance of a person or device, or need extra time with bed, chair, or whe elchair transfers? Yes. TRANSFERS: BED, CHAIR, WHEELCHAIR - STEP 2: Does the patient require the assistance of a helper? Yes. TRANSFERS: BED, CHAIR, WHEELCHAIR - STEP 3: How much assistance does the patient require from the helper? Lifting of the legs TRANSFERS: BED, CHAIR, WHEELCHAIR - STEP 4: How many legs does the patient require the helper to lift? both legs TRANSFERS: BED, CHAIR, WHEELCHAIR - SCORE: 3-MOD TRANSFERS: TOILET: TRANSFERS: TOILET - STEP 1: Does the patient require the assistance of a person or device, or need extra time with toilet transfe rs? Yes. TRANSFERS: TOILET - STEP 2: Does the patient require the assistance of a helper? Yes. TRANSFERS: TOILET - STEP 3: How much assistance does the patient require from the helper? Only supervision, cuing, coaxing, OR he lp to set out transfer equipment or to lock brakes and/or lift foot rests TRANSFERS: TOILET - SCORE: 5-SUP TRANSFERS: SHOWER: Activity did not occur on this shift TRANSFERS: SHOWER - SCORE: 0-UNK TRANSFERS: TUB: Activity did not occur on this shift TRANSFERS: TUB - SCORE: 0-UNK LOCOMOTION: WALK: Activity did not occur on this shift LOCOMOTION: WALK - SCORE: 0-UNK LOCOMOTION: WHEELCHAIR: Activity did not occur on this shift LOCOMOTION: WHEELCHAIR - SCORE: 0-UNK COMPREHENSION: COMPREHENSION: TYPE: Both COMPREHENSION - STEP 1: Does the patient require help from a person or device, or need extra time to understand complex and a bstract ideas (such as current events, finances, discharge planning, medical issues, relationships, e tc)? No. COMPREHENSION - STEP 2: Does the patient need extra time, require an assistive device (such as glasses for visual comprehensi on or a hearing aid for auditory comprehension) or does s/he have mild difficulty understanding compl ex and abstract information? Yes. COMPREHENSION - SCORE: 6-BETTIE EXPRESSION EXPRESSION: TYPE: Both EXPRESSION - STEP 1: Does the patient require help from a person or device, or need extra time expressing complex and abst ract ideas (such as current events, finances, discharge planning, medical issues, relationships, etc) ? No. EXPRESSION - STEP 2: Does the patient need extra time, require an assistive device (such as augmentive communication syste m or a communication board), OR does s/he have mild difficulty expressing complex and abstract ideas (including mild dysarthria or mild word-find problems)? No. EXPRESSION - SCORE: 7-IND SOCIAL INTERACTION: SOCIAL INTERACTION - STEP 1: Does the patient require a helper to interact with others in social and therapeutic situations? No. SOCIAL INTERACTION - STEP 2: Does the patient need extra time in social situations, OR does s/he interact with staff, other patien ts, and family members ONLY in structured environments, OR does s/he require medication for social in teraction? Yes, patient needs extra time SOCIAL INTERACTION - SCORE: 6-BETTIE PROBLEM SOLVING: PROBLEM SOLVING - STEP 1: Does the patient need help from a person or device, or need extra time to solve complex problems such as managing a checking account or confronting interpersonal problems? Yes. PROBLEM SOLVING - STEP 2: Does the patient solve basic routine problems half or more of the time? Yes. PROBLEM SOLVING - STEP 3: How often does the patient need help to solve basic routine problems? 10%-24% of the time PROBLEM SOLVING - SCORE: 4-MIN MEMORY: MEMORY - STEP 1: Does the patient need help from a person or device, or need extra time to remember frequently encount ered people, daily routines, and executing requests? No. MEMORY - STEP 2: Does the patient have slight difficulty recognizing frequently encountered people, daily routines, or executing requests without the need for repetition or using self-initiated or environmental cues to remember? Yes. MEMORY - SCORE: 6-BETTIE
[2019-01-18] MEDS: PYRIDOSTIGMINE 60 MG TABLET PO SCH ×3 (03:44→20:08)
[2019-01-18 05:45] VITALS: BMI 28.5
[2019-01-18] MEDS: LEVOTHYROXINE SOD 0.088 MG TAB PO SCH (07:02)
[2019-01-18] MEDS: INSULIN -REGULAR HUMAN 50 UNIT/0.5 ML ML SQ SCH ×4 (07:30→21:07)
[2019-01-18] MEDS: ROPINIROLE HCL 1 MG TAB PO SCH (08:08)
[2019-01-18] MEDS: SERTRALINE HCL 50 MG TAB PO SCH (08:08)
[2019-01-18] MEDS: AMLODIPINE 10 MG TAB PO SCH (08:08)
[2019-01-18] MEDS: CRANBERRY FRUIT EXTRACT 200 MG CAP PO SCH ×2 (08:08→20:08)
[2019-01-18] MEDS: predniSONE 20 MG TAB PO SCH (08:09)
[2019-01-18] MEDS: POTASSIUM CL SA 10 MEQ TAB PO SCH (08:09)
[2019-01-18] MEDS: predniSONE 10 MG TAB PO SCH (08:09)
[2019-01-18] MEDS: RAMIPRIL 5 MG CAP PO SCH (08:09)
[2019-01-18] MEDS: FUROSEMIDE 40 MG TABLET PO SCH ×2 (08:10→16:43)
[2019-01-18] MEDS: APIXABAN 2.5 MG TABLET PO SCH ×2 (08:10→20:08)
[2019-01-18] MEDS: INSULIN GLARGINE 100 UNITS/ML SQ SCH ×2 (08:10→21:08)
[2019-01-18] MEDS: INSULIN LISPRO 100 UNIT/1 ML SQ SCH ×3 (08:11→16:39)
[2019-01-18] MEDS: PROMOD 30 ML DOSE PO SCH ×2 (08:12→20:07)
--- NOTE | 2019-01-18 12:38 | FAST ---
ENCOUNTER DATE AND TIME: 01/17/2019 08:00 (CDT) NAME ARNOLD FLOYD DATE OF : 1945 DATE OF ADMISSION: 01/10/2019 17:46 (CDT) PHONE: AGE: 74 N# [id number] GENDER: Female ENCOUNTER PHYSICIAN: Dr. Noam Patricia M.D. ADMISSION DIAGNOSIS: - Neurologic Conditions 03 - Neuromuscular Disorders (03.8) Myasthenia gravis with (acute) exacerbation (G70.01). EATING: Activity did not occur on this shift EATING - SCORE: 0-UNK GROOMING: Comb/brush hair Oral care Wash, rinse, and dry face Wash, rinse, and dry hands GROOMING - STEP 1: Does the patient require the assistance of a person or device, or need extra time when grooming? No. GROOMING - SCORE: 7-IND BATHING: Abdomen Buttocks Chest Left arm Left lower leg and foot Left upper leg Perineal area Right arm Right lower leg and foot Right upper leg BATHING - STEP 1: Does the patient require the assistance of a person or device, or need extra time when bathing? Yes. BATHING - STEP 2: Does the patient require the assistance of a helper? Yes. BATHING - STEP 3: How much assistance does the patient require from the helper? Only incidental help such as placement of a wash cloth in his/her hand a few times as s/he bathes OR help to bathe just one or two areas of the body BATHING - SCORE: 4-MIN DRESSING - UPPER BODY: T-shirt/pullover shirt (four steps) ARTICLES SCORE Total number of steps: 4 DRESSING - UPPER BODY - STEP 1: Does the patient require help from a person or device, or need extra time when dressing above the mariya st? Yes. DRESSING - UPPER BODY - STEP 2: Does the patient require the assistance of a helper? Yes. DRESSING - UPPER BODY - STEP 3: Does the helper touch the patient while dressing? No. DRESSING - UPPER BODY - SCORE: 5-SUP DRESSING - LOWER BODY: Elastic waist pants (three steps) Sock - Left foot (one step) Sock - Right foot (one step) Underwear (three steps) ARTICLES SCORE Total number of steps: 8 DRESSING - LOWER BODY - STEP 1: Does the patient require help from a person or device, or need extra time when dressing below the mariya st? Yes. DRESSING - LOWER BODY - STEP 2: Does the patient require the assistance of a helper? Yes. DRESSING - LOWER BODY - STEP 3: Does the helper touch the patient while dressing? Yes. DRESSING - LOWER BODY - STEP 4: How many of the total steps does the patient complete on his/her own? 6 DRESSING - LOWER BODY - SCORE: 4-MIN TOILETING: Activity did not occur on this shift TOILETING - SCORE: 0-UNK BLADDER MANAGEMENT: Activity did not occur on this shift BLADDER MANAGEMENT - SCORE: 7-IND BOWEL MANAGEMENT: Activity did not occur on this shift BOWEL MANAGEMENT - SCORE: 7-IND TRANSFERS: BED, CHAIR, WHEELCHAIR: Activity did not occur on this shift TRANSFERS: BED, CHAIR, WHEELCHAIR - SCORE: 0-UNK TRANSFERS: TOILET: Activity did not occur on this shift TRANSFERS: TOILET - SCORE: 0-UNK TRANSFERS: SHOWER: TRANSFERS: SHOWER - STEP 1: Does the patient require the assistance of a person or device, or need extra time with shower transfe rs? Yes. TRANSFERS: SHOWER - STEP 2: Does the patient require the assistance of a helper? Yes. TRANSFERS: SHOWER - STEP 3: How much assistance does the patient require from the helper? Only supervision, cuing, coaxing, or he lp to set out transfer equipment or to lock brakes and/or lift foot rests TRANSFERS: SHOWER - SCORE: 5-SUP TRANSFERS: TUB: Activity did not occur on this shift TRANSFERS: TUB - SCORE: 0-UNK LOCOMOTION: WALK: Activity did not occur on this shift LOCOMOTION: WALK - SCORE: 0-UNK LOCOMOTION: WHEELCHAIR: Activity did not occur on this shift LOCOMOTION: WHEELCHAIR - SCORE: 0-UNK LOCOMOTION: STAIRS: Activity did not occur on this shift LOCOMOTION: STAIRS - SCORE: 0-UNK COMPREHENSION: COMPREHENSION: TYPE: Both COMPREHENSION - STEP 1: Does the patient require help from a person or device, or need extra time to understand complex and a bstract ideas (such as current events, finances, discharge planning, medical issues, relationships, e tc)? No. COMPREHENSION - STEP 2: Does the patient need extra time, require an assistive device (such as glasses for visual comprehensi on or a hearing aid for auditory comprehension) or does s/he have mild difficulty understanding compl ex and abstract information? Yes. COMPREHENSION - SCORE: 6-BETTIE EXPRESSION EXPRESSION: TYPE: Both EXPRESSION - STEP 1: Does the patient require help from a person or device, or need extra time expressing complex and abst ract ideas (such as current events, finances, discharge planning, medical issues, relationships, etc) ? No. EXPRESSION - STEP 2: Does the patient need extra time, require an assistive device (such as augmentive communication syste m or a communication board), OR does s/he have mild difficulty expressing complex and abstract ideas (including mild dysarthria or mild word-find problems)? Yes. EXPRESSION - SCORE: 6-BETTIE SOCIAL INTERACTION: SOCIAL INTERACTION - STEP 1: Does the patient require a helper to interact with others in social and therapeutic situations? No. SOCIAL INTERACTION - STEP 2: Does the patient need extra time in social situations, OR does s/he interact with staff, other patien ts, and family members ONLY in structured environments, OR does s/he require medication for social in teraction? Yes, patient needs extra time SOCIAL INTERACTION - SCORE: 6-BETTIE PROBLEM SOLVING: PROBLEM SOLVING - STEP 1: Does the patient need help from a person or device, or need extra time to solve complex problems such as managing a checking account or confronting interpersonal problems? Yes. PROBLEM SOLVING - STEP 2: Does the patient solve basic routine problems half or more of the time? Yes. PROBLEM SOLVING - STEP 3: How often does the patient need help to solve basic routine problems? 10%-24% of the time PROBLEM SOLVING - SCORE: 4-MIN MEMORY: MEMORY - STEP 1: Does the patient need help from a person or device, or need extra time to remember frequently encount ered people, daily routines, and executing requests? Yes. MEMORY - STEP 2: How often does the patient need help to remember frequently encountered people, daily routines, and e xecuting requests? Less than 10% of the time MEMORY - SCORE: 5-SUP SIGNATURE PANEL: The following modified sections: Eating - Score, Grooming - Score, Bathing - Score, Dressing - Upper Body - Score, Dressing - Lower Body - Score, Toileting - Score, Transfers: Bed, Chair, Wheelchair - S core, Transfers: Toilet - Score, Transfers: Shower - Score, Transfers: Tub - Score, Comprehension - S core, Expression - Score, Social Interaction - Score, Problem Solving - Score, Memory - Score were [e lectronically] signed by Teena Christiansen OT on ThuJan 18 2019 12:37:25 T-0500 ([facility])
--- NOTE | 2019-01-18 12:52 | FAST ---
ENCOUNTER DATE AND TIME: 01/18/2019 08:00 (CDT) NAME ARNOLD FLOYD DATE OF : 1945 DATE OF ADMISSION: 01/10/2019 17:46 (CDT) PHONE: AGE: 74 N# [id number] GENDER: Female ENCOUNTER PHYSICIAN: Dr. Noam Patricia M.D. ADMISSION DIAGNOSIS: - Neurologic Conditions 03 - Neuromuscular Disorders (03.8) Myasthenia gravis with (acute) exacerbation (G70.01). EATING: Activity did not occur on this shift EATING - SCORE: 0-UNK GROOMING: Activity did not occur on this shift GROOMING - SCORE: 0-UNK BATHING: Activity did not occur on this shift BATHING - SCORE: 0-UNK DRESSING - UPPER BODY: Activity did not occur on this shift Patient is not dressing in public clothing ARTICLES SCORE Total number of steps: 0 DRESSING - UPPER BODY - SCORE: 0-UNK DRESSING - LOWER BODY: Activity did not occur on this shift Patient is not dressing in public clothing ARTICLES SCORE Total number of steps: 0 DRESSING - LOWER BODY - SCORE: 0-UNK TOILETING: Activity did not occur on this shift TOILETING - SCORE: 0-UNK BLADDER MANAGEMENT: Activity did not occur on this shift BLADDER MANAGEMENT - SCORE: 7-IND BOWEL MANAGEMENT: Activity did not occur on this shift BOWEL MANAGEMENT - SCORE: 7-IND TRANSFERS: BED, CHAIR, WHEELCHAIR: TRANSFERS: BED, CHAIR, WHEELCHAIR - STEP 1: Does the patient require assistance of a person or device, or need extra time with bed, chair, or whe elchair transfers? Yes. TRANSFERS: BED, CHAIR, WHEELCHAIR - STEP 2: Does the patient require the assistance of a helper? Yes. TRANSFERS: BED, CHAIR, WHEELCHAIR - STEP 3: How much assistance does the patient require from the helper? Only supervision TRANSFERS: BED, CHAIR, WHEELCHAIR - SCORE: 5-SUP TRANSFERS: TOILET: Activity did not occur on this shift TRANSFERS: TOILET - SCORE: 0-UNK TRANSFERS: SHOWER: Activity did not occur on this shift TRANSFERS: SHOWER - SCORE: 0-UNK TRANSFERS: TUB: Activity did not occur on this shift TRANSFERS: TUB - SCORE: 0-UNK LOCOMOTION: WALK: LOCOMOTION: WALK - STEP 1: Does the patient need help from a person or device, or need extra time to walk 150 feet? Yes. LOCOMOTION: WALK - STEP 2: How much assistance does the patient require to walk a minimum of 150 feet? Only supervision, cuing, or coaxing LOCOMOTION: WALK - SCORE: 5-SUP LOCOMOTION: WHEELCHAIR: LOCOMOTION: WHEELCHAIR - STEP 1: Does the patient need help to go 150 feet in a wheelchair? Yes. LOCOMOTION: WHEELCHAIR - STEP 2: How much assistance does the patient need from the helper? Only supervision, cuing, or coaxing LOCOMOTION: WHEELCHAIR - SCORE: 5-SUP LOCOMOTION: STAIRS: Activity did not occur on this shift LOCOMOTION: STAIRS - SCORE: 0-UNK COMPREHENSION: COMPREHENSION - SCORE: 0-UNK EXPRESSION EXPRESSION - SCORE: 0-UNK SOCIAL INTERACTION: SOCIAL INTERACTION - SCORE: 0-UNK PROBLEM SOLVING: PROBLEM SOLVING - SCORE: 0-UNK MEMORY: MEMORY - SCORE: 0-UNK SIGNATURE PANEL: The following modified sections: Transfers: Bed, Chair, Wheelchair - Score, Transfers: Toilet - Score , Locomotion: Walk - Score, Locomotion: Wheelchair - Score, Locomotion: Stairs - Score were [electron jori] signed by Елена Bass PTA on ThuJan 18 2019 12:51:39 GMT-0500 ([facility] Day[facility] [place])
--- NOTE | 2019-01-18 13:29 | FAST ---
SHIFT START DATE/TIME: 01/18/2019 07:00 (CDT) SHIFT END DATE/TIME: 01/18/2019 19:00 (CDT) NAME ARNOLD FLOYD DATE OF : 1945 DATE OF ADMISSION: 01/10/2019 17:46 (CDT) PHONE: AGE: 74 N# [id number] GENDER: Female ENCOUNTER PHYSICIAN: Dr. Noam Patricia M.D. ADMISSION DIAGNOSIS: - Neurologic Conditions 03 - Neuromuscular Disorders (03.8) Myasthenia gravis with (acute) exacerbation (G70.01). EATING: EATING - STEP 1: Does the patient require the assistance of a person or device, or need extra time when eating? Yes. EATING - STEP 2: Does the patient require the assistance of a helper? No, patient only requires an assistive device, O R s/he takes more than reasonable time to eat, OR there is a safety concern, OR s/he requires modifie d food consistency EATING - SCORE: 6-BETTIE GROOMING: Comb/brush hair GROOMING - STEP 1: Does the patient require the assistance of a person or device, or need extra time when grooming? Yes. GROOMING - STEP 2: Does the patient require the assistance of a helper? No. The patient only requires an assistive devic e, OR takes more than reasonable time to groom, OR there is a concern for safety as the patient groom s GROOMING - SCORE: 6-BETTIE BATHING: Activity did not occur on this shift BATHING - SCORE: 0-UNK DRESSING - UPPER BODY: Activity did not occur on this shift ARTICLES SCORE Total number of steps: 0 DRESSING - UPPER BODY - SCORE: 0-UNK DRESSING - LOWER BODY: Activity did not occur on this shift ARTICLES SCORE Total number of steps: 0 DRESSING - LOWER BODY - SCORE: 0-UNK TOILETING: TOILETING - STEP 1: Does the patient require the assistance of a person or device, or need extra time with toileting? Yes . TOILETING - STEP 2: Does the patient require the assistance of a helper? Yes. TOILETING - STEP 3: How much assistance does the patient require from the helper? Hands-on assistance from the helper TOILETING - STEP 4: Of the 3 tasks: 1) Adjusting clothing prior to use, 2) Cleansing of perineal area, 3) Adjusting clot merna after use; How many tasks does the patient perform WITHOUT assistance of the helper? Three tasks with steadying assistance from the helper TOILETING - SCORE: 4-MIN BLADDER MANAGEMENT: BLADDER MANAGEMENT - STEP 1: Does the patient control the bladder completely and intentionally without equipment or devices or med ications, and is always continent? No. BLADDER MANAGEMENT - STEP 2: Does the patient require the assistance of a helper? No, patient requires and independently uses an a ssistive device, such as a urinal, bedpan, bedside commode, catheter, absorbent pad, or collecting de vice BLADDER MANAGEMENT - SCORE: 6-BETTIE BOWEL MANAGEMENT: Activity did not occur on this shift BOWEL MANAGEMENT - SCORE: 7-IND TRANSFERS: BED, CHAIR, WHEELCHAIR: TRANSFERS: BED, CHAIR, WHEELCHAIR - STEP 1: Does the patient require assistance of a person or device, or need extra time with bed, chair, or whe elchair transfers? Yes. TRANSFERS: BED, CHAIR, WHEELCHAIR - STEP 2: Does the patient require the assistance of a helper? Yes. TRANSFERS: BED, CHAIR, WHEELCHAIR - STEP 3: How much assistance does the patient require from the helper? Steadying/guiding assistance TRANSFERS: BED, CHAIR, WHEELCHAIR - SCORE: 4-MIN TRANSFERS: TOILET: TRANSFERS: TOILET - STEP 1: Does the patient require the assistance of a person or device, or need extra time with toilet transfe rs? Yes. TRANSFERS: TOILET - STEP 2: Does the patient require the assistance of a helper? Yes. TRANSFERS: TOILET - STEP 3: How much assistance does the patient require from the helper? Patient performs half or more of the tr ansferring tasks TRANSFERS: TOILET - STEP 4: Does the patient need only incidental help such as contact guard or steadying during toilet transfer? Yes. TRANSFERS: TOILET - SCORE: 4-MIN TRANSFERS: SHOWER: Activity did not occur on this shift TRANSFERS: SHOWER - SCORE: 0-UNK TRANSFERS: TUB: Activity did not occur on this shift TRANSFERS: TUB - SCORE: 0-UNK LOCOMOTION: WALK: Activity did not occur on this shift LOCOMOTION: WALK - SCORE: 0-UNK LOCOMOTION: WHEELCHAIR: Activity did not occur on this shift LOCOMOTION: WHEELCHAIR - SCORE: 0-UNK COMPREHENSION: COMPREHENSION - SCORE: 0-UNK EXPRESSION EXPRESSION - SCORE: 0-UNK SOCIAL INTERACTION: SOCIAL INTERACTION - SCORE: 0-UNK PROBLEM SOLVING: PROBLEM SOLVING - SCORE: 0-UNK MEMORY: MEMORY - SCORE: 0-UNK SIGNATURE PANEL: The following modified sections: Eating - Score, Grooming - Score, Bathing - Score, Dressing - Upper Body - Score, Dressing - Lower Body - Score, Toileting - Score, Bladder Management - Score, Bowel Man agement - Score, Transfers: Bed, Chair, Wheelchair - Score, Transfers: Toilet - Score, Transfers: Treasure wer - Score, Transfers: Tub - Score, Locomotion: Walk - Score, Locomotion: Wheelchair - Score, Compre hension - Score, Expression - Score, Social Interaction - Score, Problem Solving - Score, Memory - Sc ore were [electronically] signed by Brendon Corona on ThuJan 18 2019 13:28:28 GMT-0500 (Central Daylight Time)
--- NOTE | 2019-01-18 15:17 | FAST ---
ENCOUNTER DATE AND TIME: 01/13/2019 08:00 (CDT) NAME ARNOLD FLOYD DATE OF : 1945 DATE OF ADMISSION: 01/10/2019 17:46 (CDT) PHONE: AGE: 74 N# [id number] GENDER: Female ENCOUNTER PHYSICIAN: Dr. Noam Patricia M.D. ADMISSION DIAGNOSIS: - Neurologic Conditions 03 - Neuromuscular Disorders (03.8) Myasthenia gravis with (acute) exacerbation (G70.01). EATING: Activity did not occur on this shift EATING - SCORE: 0-UNK GROOMING: Activity did not occur on this shift GROOMING - SCORE: 0-UNK BATHING: Activity did not occur on this shift BATHING - SCORE: 0-UNK DRESSING - UPPER BODY: Activity did not occur on this shift Patient is not dressing in public clothing ARTICLES SCORE Total number of steps: 0 DRESSING - UPPER BODY - SCORE: 0-UNK DRESSING - LOWER BODY: Activity did not occur on this shift Patient is not dressing in public clothing ARTICLES SCORE Total number of steps: 0 DRESSING - LOWER BODY - SCORE: 0-UNK TOILETING: Activity did not occur on this shift TOILETING - SCORE: 0-UNK BLADDER MANAGEMENT: Activity did not occur on this shift BLADDER MANAGEMENT - SCORE: 7-IND BOWEL MANAGEMENT: Activity did not occur on this shift BOWEL MANAGEMENT - SCORE: 7-IND TRANSFERS: BED, CHAIR, WHEELCHAIR: TRANSFERS: BED, CHAIR, WHEELCHAIR - STEP 1: Does the patient require assistance of a person or device, or need extra time with bed, chair, or whe elchair transfers? Yes. TRANSFERS: BED, CHAIR, WHEELCHAIR - STEP 2: Does the patient require the assistance of a helper? Yes. TRANSFERS: BED, CHAIR, WHEELCHAIR - STEP 3: How much assistance does the patient require from the helper? Only supervision TRANSFERS: BED, CHAIR, WHEELCHAIR - SCORE: 5-SUP TRANSFERS: TOILET: Activity did not occur on this shift TRANSFERS: TOILET - SCORE: 0-UNK TRANSFERS: SHOWER: Activity did not occur on this shift TRANSFERS: SHOWER - SCORE: 0-UNK TRANSFERS: TUB: Activity did not occur on this shift TRANSFERS: TUB - SCORE: 0-UNK LOCOMOTION: WALK: LOCOMOTION: WALK - STEP 1: Does the patient need help from a person or device, or need extra time to walk 150 feet? Yes. LOCOMOTION: WALK - STEP 2: How much assistance does the patient require to walk a minimum of 150 feet? Only supervision, cuing, or coaxing LOCOMOTION: WALK - SCORE: 5-SUP LOCOMOTION: WHEELCHAIR: Patient propels wheelchair less than 50 ft LOCOMOTION: WHEELCHAIR - SCORE: 1-DEP LOCOMOTION: STAIRS: LOCOMOTION: STAIRS - STEP 1: Does the patient need help to go up and down 12 to 14 stairs? Yes. LOCOMOTION: STAIRS - STEP 2: How much assistance does the patient need from the helper to go a minimum of 12 to 14 stairs? The pat ient goes less than 12 stairs, but at least 4 stairs LOCOMOTION: STAIRS - SCORE: 2-MAX COMPREHENSION: COMPREHENSION - SCORE: 0-UNK EXPRESSION EXPRESSION - SCORE: 0-UNK SOCIAL INTERACTION: SOCIAL INTERACTION - SCORE: 0-UNK PROBLEM SOLVING: PROBLEM SOLVING - SCORE: 0-UNK MEMORY: MEMORY - SCORE: 0-UNK SIGNATURE PANEL: The following modified sections: Transfers: Bed, Chair, Wheelchair - Score, Transfers: Toilet - Score , Locomotion: Walk - Score, Locomotion: Wheelchair - Score, Locomotion: Stairs - Score were [electron icahector] signed by Chevy Amanda PTA on ThuJan 18 2019 15:16:37 GMT-0500 (Central Daylight Time)
--- NOTE | 2019-01-18 15:34 | FAST ---
ENCOUNTER DATE AND TIME: 01/17/2019 08:00 (CDT) NAME ARNOLD FLOYD DATE OF : 1945 DATE OF ADMISSION: 01/10/2019 17:46 (CDT) PHONE: AGE: 74 N# [id number] GENDER: Female ENCOUNTER PHYSICIAN: Dr. Noam Patricia M.D. ADMISSION DIAGNOSIS: - Neurologic Conditions 03 - Neuromuscular Disorders (03.8) Myasthenia gravis with (acute) exacerbation (G70.01). EATING: Activity did not occur on this shift EATING - SCORE: 0-UNK GROOMING: Activity did not occur on this shift GROOMING - SCORE: 0-UNK BATHING: Activity did not occur on this shift BATHING - SCORE: 0-UNK DRESSING - UPPER BODY: Activity did not occur on this shift Patient is not dressing in public clothing ARTICLES SCORE Total number of steps: 0 DRESSING - UPPER BODY - SCORE: 0-UNK DRESSING - LOWER BODY: Activity did not occur on this shift Patient is not dressing in public clothing ARTICLES SCORE Total number of steps: 0 DRESSING - LOWER BODY - SCORE: 0-UNK TOILETING: Activity did not occur on this shift TOILETING - SCORE: 0-UNK BLADDER MANAGEMENT: Activity did not occur on this shift BLADDER MANAGEMENT - SCORE: 7-IND BOWEL MANAGEMENT: Activity did not occur on this shift BOWEL MANAGEMENT - SCORE: 7-IND TRANSFERS: BED, CHAIR, WHEELCHAIR: TRANSFERS: BED, CHAIR, WHEELCHAIR - STEP 1: Does the patient require assistance of a person or device, or need extra time with bed, chair, or whe elchair transfers? Yes. TRANSFERS: BED, CHAIR, WHEELCHAIR - STEP 2: Does the patient require the assistance of a helper? Yes. TRANSFERS: BED, CHAIR, WHEELCHAIR - STEP 3: How much assistance does the patient require from the helper? Only supervision TRANSFERS: BED, CHAIR, WHEELCHAIR - SCORE: 5-SUP TRANSFERS: TOILET: Activity did not occur on this shift TRANSFERS: TOILET - SCORE: 0-UNK TRANSFERS: SHOWER: Activity did not occur on this shift TRANSFERS: SHOWER - SCORE: 0-UNK TRANSFERS: TUB: Activity did not occur on this shift TRANSFERS: TUB - SCORE: 0-UNK LOCOMOTION: WALK: LOCOMOTION: WALK - STEP 1: Does the patient need help from a person or device, or need extra time to walk 150 feet? No. LOCOMOTION: WALK - STEP 2: Does the patient need an assistive device (such as an orthosis, prosthesis, crutches, or walker) to g o 150 feet, OR does s/he take more than reasonable time, OR is there a concern for safety? Yes, the p atient needs an assistive device LOCOMOTION: WALK - SCORE: 6-BETTIE LOCOMOTION: WHEELCHAIR: LOCOMOTION: WHEELCHAIR - STEP 1: Does the patient need help to go 150 feet in a wheelchair? Yes. LOCOMOTION: WHEELCHAIR - STEP 2: How much assistance does the patient need from the helper? Patient goes less than 150 feet - but more than 50 feet - with the assistance of only one helper LOCOMOTION: WHEELCHAIR - SCORE: 2-MAX LOCOMOTION: STAIRS: LOCOMOTION: STAIRS - STEP 1: Does the patient need help to go up and down 12 to 14 stairs? Yes. LOCOMOTION: STAIRS - STEP 2: How much assistance does the patient need from the helper to go a minimum of 12 to 14 stairs? The pat ient goes less than 12 stairs, but at least 4 stairs LOCOMOTION: STAIRS - SCORE: 2-MAX COMPREHENSION: COMPREHENSION - SCORE: 0-UNK EXPRESSION EXPRESSION - SCORE: 0-UNK SOCIAL INTERACTION: SOCIAL INTERACTION - SCORE: 0-UNK PROBLEM SOLVING: PROBLEM SOLVING - SCORE: 0-UNK MEMORY: MEMORY - SCORE: 0-UNK SIGNATURE PANEL: The following modified sections: Transfers: Bed, Chair, Wheelchair - Score, Transfers: Toilet - Score , Locomotion: Walk - Score, Locomotion: Wheelchair - Score, Locomotion: Stairs - Score were [electron jori] signed by Chevy Amanda PTA on ThuJan 18 2019 15:32:52 GMT-0500 (Central Daylight Time)
--- NOTE | 2019-01-18 15:47 | FAST ---
ENCOUNTER DATE AND TIME: 01/18/2019 08:00 (CDT) NAME ARNOLD FLOYD DATE OF : 1945 DATE OF ADMISSION: 01/10/2019 17:46 (CDT) PHONE: AGE: 74 N# [id number] GENDER: Female ENCOUNTER PHYSICIAN: Dr. Noam Patricia M.D. ADMISSION DIAGNOSIS: - Neurologic Conditions 03 - Neuromuscular Disorders (03.8) Myasthenia gravis with (acute) exacerbation (G70.01). EATING: Activity did not occur on this shift EATING - SCORE: 0-UNK GROOMING: Comb/brush hair Oral care Wash, rinse, and dry face Wash, rinse, and dry hands GROOMING - STEP 1: Does the patient require the assistance of a person or device, or need extra time when grooming? Yes. GROOMING - STEP 2: Does the patient require the assistance of a helper? No. The patient only requires an assistive devic e, OR takes more than reasonable time to groom, OR there is a concern for safety as the patient groom s GROOMING - SCORE: 6-BETTIE BATHING: Activity did not occur on this shift BATHING - SCORE: 0-UNK DRESSING - UPPER BODY: Activity did not occur on this shift ARTICLES SCORE Total number of steps: 0 DRESSING - UPPER BODY - SCORE: 0-UNK DRESSING - LOWER BODY: Activity did not occur on this shift ARTICLES SCORE Total number of steps: 0 DRESSING - LOWER BODY - SCORE: 0-UNK TOILETING: TOILETING - STEP 1: Does the patient require the assistance of a person or device, or need extra time with toileting? Yes . TOILETING - STEP 2: Does the patient require the assistance of a helper? Yes. TOILETING - STEP 3: How much assistance does the patient require from the helper? Hands-on assistance from the helper TOILETING - STEP 4: Of the 3 tasks: 1) Adjusting clothing prior to use, 2) Cleansing of perineal area, 3) Adjusting clot merna after use; How many tasks does the patient perform WITHOUT assistance of the helper? Three tasks with steadying assistance from the helper TOILETING - SCORE: 4-MIN BLADDER MANAGEMENT: Activity did not occur on this shift BLADDER MANAGEMENT - SCORE: 7-IND BOWEL MANAGEMENT: Activity did not occur on this shift BOWEL MANAGEMENT - SCORE: 7-IND TRANSFERS: BED, CHAIR, WHEELCHAIR: Activity did not occur on this shift TRANSFERS: BED, CHAIR, WHEELCHAIR - SCORE: 0-UNK TRANSFERS: TOILET: TRANSFERS: TOILET - STEP 1: Does the patient require the assistance of a person or device, or need extra time with toilet transfe rs? Yes. TRANSFERS: TOILET - STEP 2: Does the patient require the assistance of a helper? Yes. TRANSFERS: TOILET - STEP 3: How much assistance does the patient require from the helper? Patient performs half or more of the tr ansferring tasks TRANSFERS: TOILET - STEP 4: Does the patient need only incidental help such as contact guard or steadying during toilet transfer? Yes. TRANSFERS: TOILET - SCORE: 4-MIN TRANSFERS: SHOWER: Activity did not occur on this shift TRANSFERS: SHOWER - SCORE: 0-UNK TRANSFERS: TUB: Activity did not occur on this shift TRANSFERS: TUB - SCORE: 0-UNK LOCOMOTION: WALK: Activity did not occur on this shift LOCOMOTION: WALK - SCORE: 0-UNK LOCOMOTION: WHEELCHAIR: Activity did not occur on this shift LOCOMOTION: WHEELCHAIR - SCORE: 0-UNK LOCOMOTION: STAIRS: Activity did not occur on this shift LOCOMOTION: STAIRS - SCORE: 0-UNK COMPREHENSION: COMPREHENSION - SCORE: 0-UNK EXPRESSION EXPRESSION - SCORE: 0-UNK SOCIAL INTERACTION: SOCIAL INTERACTION - SCORE: 0-UNK PROBLEM SOLVING: PROBLEM SOLVING - SCORE: 0-UNK MEMORY: MEMORY - SCORE: 0-UNK SIGNATURE PANEL: The following modified sections: Eating - Score, Grooming - Score, Bathing - Score, Dressing - Upper Body - Score, Dressing - Lower Body - Score, Toileting - Score, Transfers: Bed, Chair, Wheelchair - S core, Transfers: Toilet - Score, Transfers: Shower - Score, Transfers: Tub - Score, Comprehension - S core, Expression - Score, Social Interaction - Score, Problem Solving - Score, Memory - Score were [e lectronically] signed by ALPHONSE Olivo on ThuJan 18 2019 15:46:58 T-0500 ([facility] Time)
--- NOTE | 2019-01-18 17:40 | R.PN ---
ENCOUNTER DATE AND TIME: 01/18/2019 17:37 (CDT) NAME ARNOLD FLOYD DATE OF : 1945 DATE OF ADMISSION: 01/10/2019 17:46 (CDT) Myasthenia gravis with (acute) exacerbation (G70.01)CHIEF COMPLAINT: Fatiguable weakness SUBJECTIVE: Pt denied any depression. Pt denied any Shortness of Breath. Ambulated 250' with standby assistance using a rolling walker. Up and down 5 steps with bilateral alcantara d rails. VITAL SIGNS Temperature: 98.0 F SBP/DBP: 139/63 Pulse: 69 Resp: 16 MEDICATION ALLERGIES: No Known Drug Allergies (NKDA) ENVIRONMENTAL ALLERGIES: - Substance Allergies None Known - Other Allergies None Known NURSING: - Shower allowing shower - Lab Results blood Sugar Check ACHS ACTIVITIES OOB only with supervision THERAPIES: - Dietary and Nutrition Adequate Nutrition. Nutritional Education. Nutritional Supplements. PHYSICAL EXAM - Gen Alert and awake Lying in bed No apparent distress Oriented to: person, time, and place - Skin Mild bruising on the arms. No abnormalities - Eyes No abnormalities - ENMT No abnormalities - Neck No abnormalities - CVS RRR - Chest No abnormalities - Abd + bowel sounds - GI Soft Deferred - No abnormalities - Ext Mild edema in both lower extremities. - MSK 4/5 weakness in both lower extremities. - Neuro No focal deficits - Psych No abnormalities ASSESSMENT: Pt. is a 74 yo Right-handed white female.On 12/24/2018 she was admitted to [facility] with diag nosis Myasthenia gravis with (acute) exacerbation (G70.01).Her impairment category is Neurologic Cond itions 03 - Neuromuscular Disorders (03.8).Pre-morbidly, Pt. was independent/mod-I in Self-Care, Sph incter Control, Transfers Control, Locomotion, Communication, and Social Cognition; and she had good Sphincter Control.Currently, she has deficits of Transfers Control, Locomotion, Communication, Social Cognition, Endurance, Balance, Safety Awareness, and Self-Care.Pt. is now referred to [facility] for acute in-patient rehabilitation in order to maximize patient's functional ind ependence in activities of daily living, strength, ROM, and mobility.- Rehab Goal Patient has realistic goal of being discharged at assistance level 6-Vanessa to reside at Home with Fam kelsi/Relatives. MDM/PLAN: - Physical Therapy Gait dysfunction - to improve, our physical therapists will perform initial evaluation of pt's statu s upon admission and devise an individualized program for Gait Training, and Wheel Chair mobility Inability to transfer - to improve, our physical therapists will perform initial evaluation of pt's status upon admission and devise an individualized program for Bed mobility Need for home safety evaluation - to improve, our physical therapists will perform initial evaluatio n of pt's status upon admission and devise an individualized program for Home Evaluation Need in caregiver upon discharge - to improve, our physical therapists will perform initial evaluati on of pt's status upon admission and devise an individualized program for Caregiver Training New precaution - to improve, our physical therapists will perform initial evaluation of pt's status upon admission and devise an individualized program for Patient precaution education Edema - to improve, our physical therapists will perform initial evaluation of pt's status upon admi ssion and devise an individualized program for Elevation Training, and Lymphedema Therapy Poor balance - to improve, our physical therapists will perform initial evaluation of pt's status up on admission and devise an individualized program for Balance Training Poor endurance - to improve, our physical therapists will perform initial evaluation of pt's status upon admission and devise an individualized program for Endurance Training Weakness - to improve, our physical therapists will perform initial evaluation of pt's status upon a dmission and devise an individualized program for Aquatic Therapy, Neuromuscular Reeducation, and Str engthening Achieving independence - to improve, our physical therapists will perform initial evaluation of pt's status upon admission and devise an individualized program for Community Reintegration Activities - Occupational Therapy ADL deficits - to improve, our occupation therapists will perform initial evaluation of pt's status upon admission and devise an individualized program for Bathing, Bed mobility, Community Reintegratio n, Cooking, Dressing, Eating, Fine Motor Skills, Grooming, Homemaking, Kitchen Mobility, Laundry, Pat ient Education, Safety Awareness, Splinting - Positioning, Transfers(Toilet, Tub, Shower), and Wheel Chair Management Cognitive deficits - to improve, our occupation therapists will perform initial evaluation of pt's s tatus upon admission and devise an individualized program for Cognition - orientation Need for child adolescent care - to improve, our occupation therapists will perform initial evaluation of pt's status upon admission and devise an individualized program for Caregiver Training Weakness - to improve, our occupation therapists will perform initial evaluation of pt's status upon admission and devise an individualized program for Aquatic Therapy, Balance, Endurance, UE ROM, and UE strengthening - Other See attached MAR (Medication Administration Record) - Diet Type Continue Regular - Diet - Liquid Texture Continue Regular - Tube Feed Continue N/A - Lab Results blood Sugar Check ACHS - Diet - Solid Texture Continue Regular - Shower allowing shower FUNCTIONAL STATUS: UPDATED AT WEEKLY TEAM CONFERENCE - Bladder Same accident frequency: 7-Ind - No accidents in the past 7 days - Bowel Same accident frequency: 7-Ind - No accidents in the past 7 days - Walking Same score based on distance walked: 2(50-149ft) - Wheelchair Same score based on distance traveled: 1(<=50ft) FUNCTIONAL STATUS: - Self-Care A. Eating Ind B. Grooming sup C. Bathing Diane D. Dressing - Upper Diane E. Dressing - Lower modA F. Toileting sup - Sphincter Control G: Bladder control Ind H: Bowel control Ind - Transfers Control I. Bed/Chair/Wheelchair Diane J. Toilet Diane K. Tub/Shower Diane - Locomotion L. Walk/Wheelchair (C) modA L. Walk/Wheelchair (W) modA M. Stairs ADNO - Communication N. Comprehension (B) sup O. Expression (B) sup - Social Cognition P. Social Interaction sup Q. Problem Solving sup R. Memory sup - Endurance Poor - Balance Fair - Safety Awareness Fair CURRENT FUNC. DEFICITS: Transfers Control, Locomotion, Communication, Social Cognition, Endurance, Balance, Safety Awareness, and Self-Care SIGNATURE PANEL: (CDT)
[2019-01-18] MEDS: DOCUSATE NA/SENNA CONC 1 TAB PO SCH (20:08)
[2019-01-18] MEDS: ROSUVASTATIN 10 MG TAB PO SCH (20:08)
[2019-01-18] MEDS: MELATONIN 3 MG TABLET PO SCH (20:08)
--- NOTE | 2019-01-19 01:36 | FAST ---
SHIFT START DATE/TIME: 01/18/2019 19:00 (CDT) SHIFT END DATE/TIME: 01/19/2019 07:00 (CDT) NAME ARNOLD FLOYD DATE OF : 1945 DATE OF ADMISSION: 01/10/2019 17:46 (CDT) PHONE: AGE: 74 N# [id number] GENDER: Female ENCOUNTER PHYSICIAN: Dr. Noam Patricia M.D. ADMISSION DIAGNOSIS: - Neurologic Conditions 03 - Neuromuscular Disorders (03.8) Myasthenia gravis with (acute) exacerbation (G70.01). EATING: Activity did not occur on this shift EATING - SCORE: 0-UNK GROOMING: Activity did not occur on this shift GROOMING - SCORE: 0-UNK BATHING: Activity did not occur on this shift BATHING - SCORE: 0-UNK DRESSING - UPPER BODY: Patient is not dressing in public clothing ARTICLES SCORE Total number of steps: 0 DRESSING - UPPER BODY - SCORE: 0-UNK DRESSING - LOWER BODY: Patient is not dressing in public clothing ARTICLES SCORE Total number of steps: 0 DRESSING - LOWER BODY - SCORE: 0-UNK TOILETING: TOILETING - STEP 1: Does the patient require the assistance of a person or device, or need extra time with toileting? Yes . TOILETING - STEP 2: Does the patient require the assistance of a helper? Yes. TOILETING - STEP 3: How much assistance does the patient require from the helper? Only supervision TOILETING - SCORE: 5-SUP BLADDER MANAGEMENT: BLADDER MANAGEMENT - STEP 1: Does the patient control the bladder completely and intentionally without equipment or devices or med ications, and is always continent? No. BLADDER MANAGEMENT - STEP 2: Does the patient require the assistance of a helper? Yes. BLADDER MANAGEMENT - STEP 3: How much assistance does the patient require from the helper? Only supervision, stand-by, cuing, or c oaxing BLADDER MANAGEMENT - SCORE: 5-SUP BOWEL MANAGEMENT: BOWEL MANAGEMENT - STEP 1: Does the patient control bowels completely and intentionally without equipment devices or medications AND is always continent? No. BOWEL MANAGEMENT - STEP 2: Does the patient require the assistance of a helper? No, patient requires medication for control such as stool softeners, suppositories, laxatives, enemas, or OTC medications BOWEL MANAGEMENT - SCORE: 6-BETTIE TRANSFERS: BED, CHAIR, WHEELCHAIR: TRANSFERS: BED, CHAIR, WHEELCHAIR - STEP 1: Does the patient require assistance of a person or device, or need extra time with bed, chair, or whe elchair transfers? Yes. TRANSFERS: BED, CHAIR, WHEELCHAIR - STEP 2: Does the patient require the assistance of a helper? Yes. TRANSFERS: BED, CHAIR, WHEELCHAIR - STEP 3: How much assistance does the patient require from the helper? Lifting of the legs TRANSFERS: BED, CHAIR, WHEELCHAIR - STEP 4: How many legs does the patient require the helper to lift? both legs TRANSFERS: BED, CHAIR, WHEELCHAIR - SCORE: 3-MOD TRANSFERS: TOILET: TRANSFERS: TOILET - STEP 1: Does the patient require the assistance of a person or device, or need extra time with toilet transfe rs? Yes. TRANSFERS: TOILET - STEP 2: Does the patient require the assistance of a helper? Yes. TRANSFERS: TOILET - STEP 3: How much assistance does the patient require from the helper? Only supervision, cuing, coaxing, OR he lp to set out transfer equipment or to lock brakes and/or lift foot rests TRANSFERS: TOILET - SCORE: 5-SUP TRANSFERS: SHOWER: Activity did not occur on this shift TRANSFERS: SHOWER - SCORE: 0-UNK TRANSFERS: TUB: Activity did not occur on this shift TRANSFERS: TUB - SCORE: 0-UNK LOCOMOTION: WALK: Activity did not occur on this shift LOCOMOTION: WALK - SCORE: 0-UNK LOCOMOTION: WHEELCHAIR: Activity did not occur on this shift LOCOMOTION: WHEELCHAIR - SCORE: 0-UNK COMPREHENSION: COMPREHENSION: TYPE: Both COMPREHENSION - STEP 1: Does the patient require help from a person or device, or need extra time to understand complex and a bstract ideas (such as current events, finances, discharge planning, medical issues, relationships, e tc)? Yes. COMPREHENSION - STEP 2: Does the patient require help to understand questions or statements about basic needs or ideas (such as hunger, thirst, sleep, safety, daily schedule, room location, or discomfort) half or more of the t nandini? No. COMPREHENSION - STEP 3: How often does the patient need help to understand directions and conversation about basic needs? 10% - 24% of the time COMPREHENSION - SCORE: 4-MIN EXPRESSION EXPRESSION: TYPE: Both EXPRESSION - STEP 1: Does the patient require help from a person or device, or need extra time expressing complex and abst ract ideas (such as current events, finances, discharge planning, medical issues, relationships, etc) ? No. EXPRESSION - STEP 2: Does the patient need extra time, require an assistive device (such as augmentive communication syste m or a communication board), OR does s/he have mild difficulty expressing complex and abstract ideas (including mild dysarthria or mild word-find problems)? Yes. EXPRESSION - SCORE: 6-BETTIE SOCIAL INTERACTION: SOCIAL INTERACTION - STEP 1: Does the patient require a helper to interact with others in social and therapeutic situations? No. SOCIAL INTERACTION - STEP 2: Does the patient need extra time in social situations, OR does s/he interact with staff, other patien ts, and family members ONLY in structured environments, OR does s/he require medication for social in teraction? Yes, patient requires medication for social interaction SOCIAL INTERACTION - SCORE: 6-BETTIE PROBLEM SOLVING: PROBLEM SOLVING - STEP 1: Does the patient need help from a person or device, or need extra time to solve complex problems such as managing a checking account or confronting interpersonal problems? Yes. PROBLEM SOLVING - STEP 2: Does the patient solve basic routine problems half or more of the time? Yes. PROBLEM SOLVING - STEP 3: How often does the patient need help to solve basic routine problems? 10%-24% of the time PROBLEM SOLVING - SCORE: 4-MIN MEMORY: MEMORY - STEP 1: Does the patient need help from a person or device, or need extra time to remember frequently encount ered people, daily routines, and executing requests? No. MEMORY - STEP 2: Does the patient have slight difficulty recognizing frequently encountered people, daily routines, or executing requests without the need for repetition or using self-initiated or environmental cues to remember? Yes. MEMORY - SCORE: 6-BETTIE SIGNATURE PANEL: The following modified sections: Eating - Score, Grooming - Score, Dressing - Upper Body - Score, Jim ssing - Lower Body - Score, Toileting - Score, Bladder Management - Score, Bowel Management - Score, Transfers: Bed, Chair, Wheelchair - Score, Transfers: Toilet - Score, Transfers: Shower - Score, [place] sfers: Tub - Score, Locomotion: Walk - Score, Locomotion: Wheelchair - Score, Comprehension - Score, Expression - Score, Social Interaction - Score, Problem Solving - Score, Memory - Score were [electro nically] signed by Latoya Daniel CNA on ThuJan 19 2019 01:35:34 GMT-0500 (Central Daylight Time)
[2019-01-19] MEDS: PYRIDOSTIGMINE 60 MG TABLET PO SCH ×3 (04:41→20:05)
[2019-01-19] MEDS: LEVOTHYROXINE SOD 0.088 MG TAB PO SCH (06:43)
[2019-01-19] MEDS: ALENDRONATE 70 MG TAB PO SCH (06:47)
[2019-01-19] MEDS: INSULIN -REGULAR HUMAN 50 UNIT/0.5 ML ML SQ SCH ×4 (07:30→21:07)
[2019-01-19] MEDS: ROPINIROLE HCL 1 MG TAB PO SCH (08:24)
[2019-01-19] MEDS: CRANBERRY FRUIT EXTRACT 200 MG CAP PO SCH ×2 (08:24→20:05)
[2019-01-19] MEDS: RAMIPRIL 5 MG CAP PO SCH (08:25)
[2019-01-19] MEDS: APIXABAN 2.5 MG TABLET PO SCH ×2 (08:25→20:05)
[2019-01-19] MEDS: FUROSEMIDE 40 MG TABLET PO SCH ×2 (08:25→16:53)
[2019-01-19] MEDS: POTASSIUM CL SA 10 MEQ TAB PO SCH (08:26)
[2019-01-19] MEDS: SERTRALINE HCL 50 MG TAB PO SCH (08:26)
[2019-01-19] MEDS: predniSONE 20 MG TAB PO SCH (08:26)
[2019-01-19] MEDS: predniSONE 10 MG TAB PO SCH (08:26)
[2019-01-19] MEDS: INSULIN LISPRO 100 UNIT/1 ML SQ SCH ×3 (08:27→16:53)
[2019-01-19] MEDS: INSULIN GLARGINE 100 UNITS/ML SQ SCH ×2 (08:28→20:06)
[2019-01-19] MEDS: PROMOD 30 ML DOSE PO SCH ×2 (08:29→20:06)
--- NOTE | 2019-01-19 12:12 | FAST ---
ENCOUNTER DATE AND TIME: 01/19/2019 08:00 (CDT) NAME ARNOLD FLOYD DATE OF : 1945 DATE OF ADMISSION: 01/10/2019 17:46 (CDT) PHONE: AGE: 74 N# [id number] GENDER: Female ENCOUNTER PHYSICIAN: Dr. Noam Patricia M.D. ADMISSION DIAGNOSIS: - Neurologic Conditions 03 - Neuromuscular Disorders (03.8) Myasthenia gravis with (acute) exacerbation (G70.01). EATING: Activity did not occur on this shift EATING - SCORE: 0-UNK GROOMING: Comb/brush hair Wash, rinse, and dry face Wash, rinse, and dry hands GROOMING - STEP 1: Does the patient require the assistance of a person or device, or need extra time when grooming? No. GROOMING - SCORE: 7-IND BATHING: Abdomen Buttocks Chest Left arm Left lower leg and foot Left upper leg Perineal area Right arm Right lower leg and foot Right upper leg BATHING - STEP 1: Does the patient require the assistance of a person or device, or need extra time when bathing? Yes. BATHING - STEP 2: Does the patient require the assistance of a helper? Yes. BATHING - STEP 3: How much assistance does the patient require from the helper? Only incidental help such as placement of a wash cloth in his/her hand a few times as s/he bathes OR help to bathe just one or two areas of the body BATHING - SCORE: 4-MIN DRESSING - UPPER BODY: T-shirt/pullover shirt (four steps) ARTICLES SCORE Total number of steps: 4 DRESSING - UPPER BODY - STEP 1: Does the patient require help from a person or device, or need extra time when dressing above the mariya [address]? Yes. DRESSING - UPPER BODY - STEP 2: Does the patient require the assistance of a helper? Yes. DRESSING - UPPER BODY - STEP 3: Does the helper touch the patient while dressing? No. DRESSING - UPPER BODY - SCORE: 5-SUP DRESSING - LOWER BODY: Elastic waist pants (three steps) Sock - Left foot (one step) Sock - Right foot (one step) Underwear (three steps) ARTICLES SCORE Total number of steps: 8 DRESSING - LOWER BODY - STEP 1: Does the patient require help from a person or device, or need extra time when dressing below the mariya st? Yes. DRESSING - LOWER BODY - STEP 2: Does the patient require the assistance of a helper? Yes. DRESSING - LOWER BODY - STEP 3: Does the helper touch the patient while dressing? Yes. DRESSING - LOWER BODY - STEP 4: How many of the total steps does the patient complete on his/her own? 6 DRESSING - LOWER BODY - SCORE: 4-MIN TOILETING: TOILETING - STEP 1: Does the patient require the assistance of a person or device, or need extra time with toileting? Yes . TOILETING - STEP 2: Does the patient require the assistance of a helper? Yes. TOILETING - STEP 3: How much assistance does the patient require from the helper? Only supervision TOILETING - SCORE: 5-SUP BLADDER MANAGEMENT: Activity did not occur on this shift BLADDER MANAGEMENT - SCORE: 7-IND BOWEL MANAGEMENT: Activity did not occur on this shift BOWEL MANAGEMENT - SCORE: 7-IND TRANSFERS: BED, CHAIR, WHEELCHAIR: Activity did not occur on this shift TRANSFERS: BED, CHAIR, WHEELCHAIR - SCORE: 0-UNK TRANSFERS: TOILET: TRANSFERS: TOILET - STEP 1: Does the patient require the assistance of a person or device, or need extra time with toilet transfe rs? Yes. TRANSFERS: TOILET - STEP 2: Does the patient require the assistance of a helper? Yes. TRANSFERS: TOILET - STEP 3: How much assistance does the patient require from the helper? Only supervision, cuing, coaxing, OR he lp to set out transfer equipment or to lock brakes and/or lift foot rests TRANSFERS: TOILET - SCORE: 5-SUP TRANSFERS: SHOWER: TRANSFERS: SHOWER - STEP 1: Does the patient require the assistance of a person or device, or need extra time with shower transfe rs? Yes. TRANSFERS: SHOWER - STEP 2: Does the patient require the assistance of a helper? Yes. TRANSFERS: SHOWER - STEP 3: How much assistance does the patient require from the helper? Only supervision, cuing, coaxing, or he lp to set out transfer equipment or to lock brakes and/or lift foot rests TRANSFERS: SHOWER - SCORE: 5-SUP TRANSFERS: TUB: Activity did not occur on this shift TRANSFERS: TUB - SCORE: 0-UNK LOCOMOTION: WALK: Activity did not occur on this shift LOCOMOTION: WALK - SCORE: 0-UNK LOCOMOTION: WHEELCHAIR: Activity did not occur on this shift LOCOMOTION: WHEELCHAIR - SCORE: 0-UNK LOCOMOTION: STAIRS: Activity did not occur on this shift LOCOMOTION: STAIRS - SCORE: 0-UNK COMPREHENSION: COMPREHENSION: TYPE: Auditory COMPREHENSION - STEP 1: Does the patient require help from a person or device, or need extra time to understand complex and a bstract ideas (such as current events, finances, discharge planning, medical issues, relationships, e tc)? Yes. COMPREHENSION - STEP 2: Does the patient require help to understand questions or statements about basic needs or ideas (such as hunger, thirst, sleep, safety, daily schedule, room location, or discomfort) half or more of the t nandini? No. COMPREHENSION - STEP 3: How often does the patient need help to understand directions and conversation about basic needs? Les s than 10% of the time COMPREHENSION - SCORE: 5-SUP EXPRESSION EXPRESSION: TYPE: Non-Vocal EXPRESSION - STEP 1: Does the patient require help from a person or device, or need extra time expressing complex and abst ract ideas (such as current events, finances, discharge planning, medical issues, relationships, etc) ? No. EXPRESSION - STEP 2: Does the patient need extra time, require an assistive device (such as augmentive communication syste m or a communication board), OR does s/he have mild difficulty expressing complex and abstract ideas (including mild dysarthria or mild word-find problems)? Yes. EXPRESSION - SCORE: 6-BETTIE SOCIAL INTERACTION: SOCIAL INTERACTION - STEP 1: Does the patient require a helper to interact with others in social and therapeutic situations? No. SOCIAL INTERACTION - STEP 2: Does the patient need extra time in social situations, OR does s/he interact with staff, other patien ts, and family members ONLY in structured environments, OR does s/he require medication for social in teraction? Yes, patient needs extra time SOCIAL INTERACTION - SCORE: 6-BETTIE PROBLEM SOLVING: PROBLEM SOLVING - STEP 1: Does the patient need help from a person or device, or need extra time to solve complex problems such as managing a checking account or confronting interpersonal problems? Yes. PROBLEM SOLVING - STEP 2: Does the patient solve basic routine problems half or more of the time? Yes. PROBLEM SOLVING - STEP 3: How often does the patient need help to solve basic routine problems? Less than 10% of the time PROBLEM SOLVING - SCORE: 5-SUP MEMORY: MEMORY - STEP 1: Does the patient need help from a person or device, or need extra time to remember frequently encount ered people, daily routines, and executing requests? Yes. MEMORY - STEP 2: How often does the patient need help to remember frequently encountered people, daily routines, and e xecuting requests? Less than 10% of the time MEMORY - SCORE: 5-SUP SIGNATURE PANEL: The following modified sections: Eating - Score, Grooming - Score, Bathing - Score, Dressing - Upper Body - Score, Dressing - Lower Body - Score, Toileting - Score, Transfers: Bed, Chair, Wheelchair - S core, Transfers: Toilet - Score, Transfers: Shower - Score, Transfers: Tub - Score, Comprehension - S core, Expression - Score, Social Interaction - Score, Problem Solving - Score, Memory - Score were [e lectronically] signed by ALPHONSE Olivo on ThuJan 19 2019 12:11:52 T-0500 ([facility])
[2019-01-19] MEDS: AMLODIPINE 10 MG TAB PO SCH (12:32)
--- NOTE | 2019-01-19 18:13 | R.PN ---
ENCOUNTER DATE AND TIME: 01/19/2019 18:11 (CDT) NAME ARNOLD FLOYD DATE OF : 1945 DATE OF ADMISSION: 01/10/2019 17:46 (CDT) Myasthenia gravis with (acute) exacerbation (G70.01)CHIEF COMPLAINT: Fatiguable weakness SUBJECTIVE: Pt denied any depression. Pt denied any Shortness of Breath. Ambulated 250' with standby assistance using a rolling walker. Up and down 5 steps with bilateral alcantara d rails. VITAL SIGNS Temperature: 98.0 F SBP/DBP: 159/68 Pulse: 75 Resp: 16 MEDICATION ALLERGIES: No Known Drug Allergies (NKDA) ENVIRONMENTAL ALLERGIES: - Substance Allergies None Known - Other Allergies None Known NURSING: - Shower allowing shower - Lab Results blood Sugar Check ACHS ACTIVITIES OOB only with supervision THERAPIES: - Dietary and Nutrition Adequate Nutrition. Nutritional Education. Nutritional Supplements. PHYSICAL EXAM - Gen Alert and awake Lying in bed No apparent distress Oriented to: person, time, and place - Skin Mild bruising on the arms. No abnormalities - Eyes No abnormalities - ENMT No abnormalities - Neck No abnormalities - CVS RRR - Chest No abnormalities - Abd + bowel sounds - GI Soft Deferred - No abnormalities - Ext Mild edema in both lower extremities. - MSK 4/5 weakness in both lower extremities. - Neuro No focal deficits - Psych No abnormalities ASSESSMENT: Pt. is a 74 yo Right-handed white female.On 12/24/2018 she was admitted to [facility] with diag nosis Myasthenia gravis with (acute) exacerbation (G70.01).Her impairment category is Neurologic Cond itions 03 - Neuromuscular Disorders (03.8).Pre-morbidly, Pt. was independent/mod-I in Self-Care, Sph incter Control, Transfers Control, Locomotion, Communication, and Social Cognition; and she had good Sphincter Control.Currently, she has deficits of Transfers Control, Locomotion, Communication, Social Cognition, Endurance, Balance, Safety Awareness, and Self-Care.Pt. is now referred to [facility] for acute in-patient rehabilitation in order to maximize patient's functional ind ependence in activities of daily living, strength, ROM, and mobility.- Rehab Goal Patient has realistic goal of being discharged at assistance level 6-Vanessa to reside at Home with Fam kelsi/Relatives. MDM/PLAN: - Physical Therapy Gait dysfunction - to improve, our physical therapists will perform initial evaluation of pt's statu s upon admission and devise an individualized program for Gait Training, and Wheel Chair mobility Inability to transfer - to improve, our physical therapists will perform initial evaluation of pt's status upon admission and devise an individualized program for Bed mobility Need for home safety evaluation - to improve, our physical therapists will perform initial evaluatio n of pt's status upon admission and devise an individualized program for Home Evaluation Need in caregiver upon discharge - to improve, our physical therapists will perform initial evaluati on of pt's status upon admission and devise an individualized program for Caregiver Training New precaution - to improve, our physical therapists will perform initial evaluation of pt's status upon admission and devise an individualized program for Patient precaution education Edema - to improve, our physical therapists will perform initial evaluation of pt's status upon admi ssion and devise an individualized program for Elevation Training, and Lymphedema Therapy Poor balance - to improve, our physical therapists will perform initial evaluation of pt's status up on admission and devise an individualized program for Balance Training Poor endurance - to improve, our physical therapists will perform initial evaluation of pt's status upon admission and devise an individualized program for Endurance Training Weakness - to improve, our physical therapists will perform initial evaluation of pt's status upon a dmission and devise an individualized program for Aquatic Therapy, Neuromuscular Reeducation, and Str engthening Achieving independence - to improve, our physical therapists will perform initial evaluation of pt's status upon admission and devise an individualized program for Community Reintegration Activities - Occupational Therapy ADL deficits - to improve, our occupation therapists will perform initial evaluation of pt's status upon admission and devise an individualized program for Bathing, Bed mobility, Community Reintegratio n, Cooking, Dressing, Eating, Fine Motor Skills, Grooming, Homemaking, Kitchen Mobility, Laundry, Pat ient Education, Safety Awareness, Splinting - Positioning, Transfers(Toilet, Tub, Shower), and Wheel Chair Management Cognitive deficits - to improve, our occupation therapists will perform initial evaluation of pt's s tatus upon admission and devise an individualized program for Cognition - orientation Need for respiratory care program director - to improve, our occupation therapists will perform initial evaluation of pt's status upon admission and devise an individualized program for Caregiver Training Weakness - to improve, our occupation therapists will perform initial evaluation of pt's status upon admission and devise an individualized program for Aquatic Therapy, Balance, Endurance, UE ROM, and UE strengthening - Other See attached MAR (Medication Administration Record) - Diet Type Continue Regular - Diet - Liquid Texture Continue Regular - Tube Feed Continue N/A - Lab Results blood Sugar Check ACHS - Diet - Solid Texture Continue Regular - Shower allowing shower FUNCTIONAL STATUS: UPDATED AT WEEKLY TEAM CONFERENCE - Bladder Same accident frequency: 7-Ind - No accidents in the past 7 days - Bowel Same accident frequency: 7-Ind - No accidents in the past 7 days - Walking Same score based on distance walked: 2(50-149ft) - Wheelchair Same score based on distance traveled: 1(<=50ft) FUNCTIONAL STATUS: - Self-Care A. Eating Ind B. Grooming sup C. Bathing Diane D. Dressing - Upper Diane E. Dressing - Lower modA F. Toileting sup - Sphincter Control G: Bladder control Ind H: Bowel control Ind - Transfers Control I. Bed/Chair/Wheelchair Diane J. Toilet Diane K. Tub/Shower Diane - Locomotion L. Walk/Wheelchair (C) modA L. Walk/Wheelchair (W) modA M. Stairs ADNO - Communication N. Comprehension (B) sup O. Expression (B) sup - Social Cognition P. Social Interaction sup Q. Problem Solving sup R. Memory sup - Endurance Poor - Balance Fair - Safety Awareness Fair CURRENT FUNC. DEFICITS: Transfers Control, Locomotion, Communication, Social Cognition, Endurance, Balance, Safety Awareness, and Self-Care SIGNATURE PANEL: (CDT)
[2019-01-19] MEDS: MELATONIN 3 MG TABLET PO SCH (20:05)
[2019-01-19] MEDS: ROSUVASTATIN 10 MG TAB PO SCH (20:05)
[2019-01-19] MEDS: DOCUSATE NA/SENNA CONC 1 TAB PO SCH (20:14)
[2019-01-19] MEDS ORDERED: INSULIN -REGULAR HUMAN 50 UNIT/0.5 ML ML ONE (21:00)
--- NOTE | 2019-01-20 02:13 | FAST ---
SHIFT START DATE/TIME: 01/19/2019 19:00 (CDT) SHIFT END DATE/TIME: 01/20/2019 07:00 (CDT) NAME ARNOLD FLOYD DATE OF : 1945 DATE OF ADMISSION: 01/10/2019 17:46 (CDT) PHONE: AGE: 74 N# [id number] GENDER: Female ENCOUNTER PHYSICIAN: Dr. Noam Patricia M.D. ADMISSION DIAGNOSIS: - Neurologic Conditions 03 - Neuromuscular Disorders (03.8) Myasthenia gravis with (acute) exacerbation (G70.01). EATING: Activity did not occur on this shift EATING - SCORE: 0-UNK GROOMING: Activity did not occur on this shift GROOMING - SCORE: 0-UNK BATHING: Activity did not occur on this shift BATHING - SCORE: 0-UNK DRESSING - UPPER BODY: Patient is not dressing in public clothing ARTICLES SCORE Total number of steps: 0 DRESSING - UPPER BODY - SCORE: 0-UNK DRESSING - LOWER BODY: Patient is not dressing in public clothing ARTICLES SCORE Total number of steps: 0 DRESSING - LOWER BODY - SCORE: 0-UNK TOILETING: TOILETING - STEP 1: Does the patient require the assistance of a person or device, or need extra time with toileting? Yes . TOILETING - STEP 2: Does the patient require the assistance of a helper? Yes. TOILETING - STEP 3: How much assistance does the patient require from the helper? Only supervision TOILETING - SCORE: 5-SUP BLADDER MANAGEMENT: BLADDER MANAGEMENT - STEP 1: Does the patient control the bladder completely and intentionally without equipment or devices or med ications, and is always continent? No. BLADDER MANAGEMENT - STEP 2: Does the patient require the assistance of a helper? Yes. BLADDER MANAGEMENT - STEP 3: How much assistance does the patient require from the helper? Only supervision, stand-by, cuing, or c oaxing BLADDER MANAGEMENT - SCORE: 5-SUP BOWEL MANAGEMENT: BOWEL MANAGEMENT - STEP 1: Does the patient control bowels completely and intentionally without equipment devices or medications AND is always continent? No. BOWEL MANAGEMENT - STEP 2: Does the patient require the assistance of a helper? No, patient requires medication for control such as stool softeners, suppositories, laxatives, enemas, or OTC medications BOWEL MANAGEMENT - SCORE: 6-BETTIE TRANSFERS: BED, CHAIR, WHEELCHAIR: TRANSFERS: BED, CHAIR, WHEELCHAIR - STEP 1: Does the patient require assistance of a person or device, or need extra time with bed, chair, or whe elchair transfers? Yes. TRANSFERS: BED, CHAIR, WHEELCHAIR - STEP 2: Does the patient require the assistance of a helper? Yes. TRANSFERS: BED, CHAIR, WHEELCHAIR - STEP 3: How much assistance does the patient require from the helper? Steadying/guiding assistance TRANSFERS: BED, CHAIR, WHEELCHAIR - SCORE: 4-MIN TRANSFERS: TOILET: TRANSFERS: TOILET - STEP 1: Does the patient require the assistance of a person or device, or need extra time with toilet transfe rs? Yes. TRANSFERS: TOILET - STEP 2: Does the patient require the assistance of a helper? Yes. TRANSFERS: TOILET - STEP 3: How much assistance does the patient require from the helper? Only supervision, cuing, coaxing, OR he lp to set out transfer equipment or to lock brakes and/or lift foot rests TRANSFERS: TOILET - SCORE: 5-SUP TRANSFERS: SHOWER: Activity did not occur on this shift TRANSFERS: SHOWER - SCORE: 0-UNK TRANSFERS: TUB: Activity did not occur on this shift TRANSFERS: TUB - SCORE: 0-UNK LOCOMOTION: WALK: Activity did not occur on this shift LOCOMOTION: WALK - SCORE: 0-UNK LOCOMOTION: WHEELCHAIR: Activity did not occur on this shift LOCOMOTION: WHEELCHAIR - SCORE: 0-UNK COMPREHENSION: COMPREHENSION: TYPE: Both COMPREHENSION - STEP 1: Does the patient require help from a person or device, or need extra time to understand complex and a bstract ideas (such as current events, finances, discharge planning, medical issues, relationships, e tc)? Yes. COMPREHENSION - STEP 2: Does the patient require help to understand questions or statements about basic needs or ideas (such as hunger, thirst, sleep, safety, daily schedule, room location, or discomfort) half or more of the t nandini? No. COMPREHENSION - STEP 3: How often does the patient need help to understand directions and conversation about basic needs? 10% - 24% of the time COMPREHENSION - SCORE: 4-MIN EXPRESSION EXPRESSION: TYPE: Both EXPRESSION - STEP 1: Does the patient require help from a person or device, or need extra time expressing complex and abst ract ideas (such as current events, finances, discharge planning, medical issues, relationships, etc) ? No. EXPRESSION - STEP 2: Does the patient need extra time, require an assistive device (such as augmentive communication syste m or a communication board), OR does s/he have mild difficulty expressing complex and abstract ideas (including mild dysarthria or mild word-find problems)? Yes. EXPRESSION - SCORE: 6-BETTIE SOCIAL INTERACTION: SOCIAL INTERACTION - STEP 1: Does the patient require a helper to interact with others in social and therapeutic situations? No. SOCIAL INTERACTION - STEP 2: Does the patient need extra time in social situations, OR does s/he interact with staff, other patien ts, and family members ONLY in structured environments, OR does s/he require medication for social in teraction? Yes, patient requires medication for social interaction SOCIAL INTERACTION - SCORE: 6-BETTIE PROBLEM SOLVING: PROBLEM SOLVING - STEP 1: Does the patient need help from a person or device, or need extra time to solve complex problems such as managing a checking account or confronting interpersonal problems? Yes. PROBLEM SOLVING - STEP 2: Does the patient solve basic routine problems half or more of the time? Yes. PROBLEM SOLVING - STEP 3: How often does the patient need help to solve basic routine problems? 10%-24% of the time PROBLEM SOLVING - SCORE: 4-MIN MEMORY: MEMORY - STEP 1: Does the patient need help from a person or device, or need extra time to remember frequently encount ered people, daily routines, and executing requests? No. MEMORY - STEP 2: Does the patient have slight difficulty recognizing frequently encountered people, daily routines, or executing requests without the need for repetition or using self-initiated or environmental cues to remember? Yes. MEMORY - SCORE: 6-BETTIE SIGNATURE PANEL: The following modified sections: Eating - Score, Grooming - Score, Dressing - Upper Body - Score, Jim ssing - Lower Body - Score, Toileting - Score, Bladder Management - Score, Bowel Management - Score, Transfers: Bed, Chair, Wheelchair - Score, Transfers: Toilet - Score, Transfers: Shower - Score, [place] sfers: Tub - Score, Locomotion: Walk - Score, Locomotion: Wheelchair - Score, Comprehension - Score, Expression - Score, Social Interaction - Score, Problem Solving - Score, Memory - Score were [electro nically] signed by Latoya Daniel CNA on ThuJan 20 2019 02:12:52 GMT-0500 (Central Daylight Time)
[2019-01-20] MEDS: PYRIDOSTIGMINE 60 MG TABLET PO SCH ×3 (04:01→20:14)
[2019-01-20] MEDS: LEVOTHYROXINE SOD 0.088 MG TAB PO SCH (07:07)
[2019-01-20] MEDS: INSULIN -REGULAR HUMAN 50 UNIT/0.5 ML ML SQ SCH ×4 (07:30→21:07)
[2019-01-20 07:38] LABS: Absolute Lymphocytes (CBC) 5.9 K/uL (0.7-4.9); Basophils % 0.9 % (0-1.3); MPV 9.3 fL (7.6-11.3); RBC Red Blood Cell Count 3.63 M/uL (3.86-4.86)
[2019-01-20 08:06] LABS: Albumin 2.6 g/dL (3.4-5.0); Magnesium 2.4 mg/dL (1.8-2.4); Potassium 3.3 mmol/L (3.5-5.1); Prealbumin 24.7 mg/dL (20-40)
[2019-01-20] MEDS: ROPINIROLE HCL 1 MG TAB PO SCH (08:19)
[2019-01-20] MEDS: FUROSEMIDE 40 MG TABLET PO SCH (08:19)
[2019-01-20] MEDS: predniSONE 10 MG TAB PO SCH (08:20)
[2019-01-20] MEDS: predniSONE 20 MG TAB PO SCH (08:20)
[2019-01-20] MEDS: APIXABAN 2.5 MG TABLET PO SCH ×2 (08:20→20:14)
[2019-01-20] MEDS: POTASSIUM CL SA 10 MEQ TAB PO SCH (08:21)
[2019-01-20] MEDS: SERTRALINE HCL 50 MG TAB PO SCH (08:21)
[2019-01-20] MEDS: CRANBERRY FRUIT EXTRACT 200 MG CAP PO SCH ×2 (08:22→20:14)
[2019-01-20] MEDS: INSULIN LISPRO 100 UNIT/1 ML SQ SCH ×3 (08:23→16:55)
[2019-01-20] MEDS: INSULIN GLARGINE 100 UNITS/ML SQ SCH (08:24)
[2019-01-20] MEDS: PROMOD 30 ML DOSE PO SCH ×2 (08:27→20:14)
[2019-01-20] MEDS: RAMIPRIL 5 MG CAP PO SCH (10:58)
[2019-01-20] MEDS: AMLODIPINE 10 MG TAB PO SCH (11:01)
[2019-01-20] MEDS ORDERED: POTASSIUM CL SA 10 MEQ TAB PO ONE (13:40)
--- NOTE | 2019-01-20 14:49 | FAST ---
ENCOUNTER DATE AND TIME: 01/19/2019 08:00 (CDT) NAME ARNOLD FLOYD DATE OF : 1945 DATE OF ADMISSION: 01/10/2019 17:46 (CDT) PHONE: AGE: 74 N# [id number] GENDER: Female ENCOUNTER PHYSICIAN: Dr. Noam Patricia M.D. ADMISSION DIAGNOSIS: - Neurologic Conditions 03 - Neuromuscular Disorders (03.8) Myasthenia gravis with (acute) exacerbation (G70.01). EATING: Activity did not occur on this shift EATING - SCORE: 0-UNK GROOMING: Activity did not occur on this shift GROOMING - SCORE: 0-UNK BATHING: Activity did not occur on this shift BATHING - SCORE: 0-UNK DRESSING - UPPER BODY: Activity did not occur on this shift Patient is not dressing in public clothing ARTICLES SCORE Total number of steps: 0 DRESSING - UPPER BODY - SCORE: 0-UNK DRESSING - LOWER BODY: Activity did not occur on this shift Patient is not dressing in public clothing ARTICLES SCORE Total number of steps: 0 DRESSING - LOWER BODY - SCORE: 0-UNK TOILETING: Activity did not occur on this shift TOILETING - SCORE: 0-UNK BLADDER MANAGEMENT: Activity did not occur on this shift BLADDER MANAGEMENT - SCORE: 7-IND BOWEL MANAGEMENT: Activity did not occur on this shift BOWEL MANAGEMENT - SCORE: 7-IND TRANSFERS: BED, CHAIR, WHEELCHAIR: TRANSFERS: BED, CHAIR, WHEELCHAIR - STEP 1: Does the patient require assistance of a person or device, or need extra time with bed, chair, or whe elchair transfers? Yes. TRANSFERS: BED, CHAIR, WHEELCHAIR - STEP 2: Does the patient require the assistance of a helper? No. Patient only requires an assistive device fo r bed, chair, wheelchair transfers such as a sliding board, grab bar, or brace, OR s/he takes more th an reasonable time, OR there is a safety concern when s/he performs the transfers TRANSFERS: BED, CHAIR, WHEELCHAIR - SCORE: 6-BETTIE TRANSFERS: TOILET: Activity did not occur on this shift TRANSFERS: TOILET - SCORE: 0-UNK TRANSFERS: SHOWER: Activity did not occur on this shift TRANSFERS: SHOWER - SCORE: 0-UNK TRANSFERS: TUB: Activity did not occur on this shift TRANSFERS: TUB - SCORE: 0-UNK LOCOMOTION: WALK: LOCOMOTION: WALK - STEP 1: Does the patient need help from a person or device, or need extra time to walk 150 feet? Yes. LOCOMOTION: WALK - STEP 2: How much assistance does the patient require to walk a minimum of 150 feet? Only supervision, cuing, or coaxing LOCOMOTION: WALK - SCORE: 5-SUP LOCOMOTION: WHEELCHAIR: LOCOMOTION: WHEELCHAIR - STEP 1: Does the patient need help to go 150 feet in a wheelchair? Yes. LOCOMOTION: WHEELCHAIR - STEP 2: How much assistance does the patient need from the helper? Only supervision, cuing, or coaxing LOCOMOTION: WHEELCHAIR - SCORE: 5-SUP LOCOMOTION: STAIRS: Activity did not occur on this shift LOCOMOTION: STAIRS - SCORE: 0-UNK COMPREHENSION: COMPREHENSION - SCORE: 0-UNK EXPRESSION EXPRESSION - SCORE: 0-UNK SOCIAL INTERACTION: SOCIAL INTERACTION - SCORE: 0-UNK PROBLEM SOLVING: PROBLEM SOLVING - SCORE: 0-UNK MEMORY: MEMORY - SCORE: 0-UNK SIGNATURE PANEL: The following modified sections: Transfers: Bed, Chair, Wheelchair - Score, Transfers: Toilet - Score , Locomotion: Walk - Score, Locomotion: Wheelchair - Score, Locomotion: Stairs - Score were [electron jori] signed by Chevy Amanda PTA on ThuJan 20 2019 14:48:14 T-0500 (Central Daylight Time)
[2019-01-20] MEDS: FUROSEMIDE 20 MG TABLET PO SCH (16:46)
[2019-01-20] MEDS: ROSUVASTATIN 10 MG TAB PO SCH (20:13)
[2019-01-20] MEDS: MELATONIN 3 MG TABLET PO SCH (20:14)
[2019-01-20] MEDS: DOCUSATE NA/SENNA CONC 1 TAB PO SCH (20:14)
[2019-01-20] MEDS ORDERED: INSULIN GLARGINE 100 UNITS/ML SQ SCH (21:00)
--- NOTE | 2019-01-21 03:07 | FAST ---
SHIFT START DATE/TIME: 01/20/2019 19:00 (CDT) SHIFT END DATE/TIME: 01/21/2019 07:00 (CDT) NAME ARNOLD FLOYD DATE OF : 1945 DATE OF ADMISSION: 01/10/2019 17:46 (CDT) PHONE: AGE: 74 N# [id number] GENDER: Female ENCOUNTER PHYSICIAN: Dr. Noam Patricia M.D. ADMISSION DIAGNOSIS: - Neurologic Conditions 03 - Neuromuscular Disorders (03.8) Myasthenia gravis with (acute) exacerbation (G70.01). EATING: Activity did not occur on this shift EATING - SCORE: 0-UNK GROOMING: Activity did not occur on this shift GROOMING - SCORE: 0-UNK BATHING: Activity did not occur on this shift BATHING - SCORE: 0-UNK DRESSING - UPPER BODY: Activity did not occur on this shift ARTICLES SCORE Total number of steps: 0 DRESSING - UPPER BODY - SCORE: 0-UNK DRESSING - LOWER BODY: Activity did not occur on this shift ARTICLES SCORE Total number of steps: 0 DRESSING - LOWER BODY - SCORE: 0-UNK TOILETING: TOILETING - SCORE: 0-UNK BLADDER MANAGEMENT: BLADDER MANAGEMENT - STEP 1: Does the patient control the bladder completely and intentionally without equipment or devices or med ications, and is always continent? No. BLADDER MANAGEMENT - STEP 2: Does the patient require the assistance of a helper? Yes. BLADDER MANAGEMENT - STEP 3: How much assistance does the patient require from the helper? Only supervision, stand-by, cuing, or c oaxing BLADDER MANAGEMENT - SCORE: 5-SUP BLADDER MANAGEMENT - FREQUENCY OF ACCIDENTS: BLADDER MANAGEMENT(FA) - STEP 1: How many accidents has the patient had during the current shift? 0 BOWEL MANAGEMENT: Activity did not occur on this shift BOWEL MANAGEMENT - SCORE: 7-IND BOWEL MANAGEMENT - FREQUENCY OF ACCIDENTS: BOWEL MANAGEMENT(FA) - STEP 1: How many accidents has the patient had during the current shift? 0 TRANSFERS: BED, CHAIR, WHEELCHAIR: TRANSFERS: BED, CHAIR, WHEELCHAIR - STEP 1: Does the patient require assistance of a person or device, or need extra time with bed, chair, or whe elchair transfers? Yes. TRANSFERS: BED, CHAIR, WHEELCHAIR - STEP 2: Does the patient require the assistance of a helper? Yes. TRANSFERS: BED, CHAIR, WHEELCHAIR - STEP 3: How much assistance does the patient require from the helper? Only supervision TRANSFERS: BED, CHAIR, WHEELCHAIR - SCORE: 5-SUP TRANSFERS: TOILET: TRANSFERS: TOILET - STEP 1: Does the patient require the assistance of a person or device, or need extra time with toilet transfe rs? Yes. TRANSFERS: TOILET - STEP 2: Does the patient require the assistance of a helper? Yes. TRANSFERS: TOILET - STEP 3: How much assistance does the patient require from the helper? Only supervision, cuing, coaxing, OR he lp to set out transfer equipment or to lock brakes and/or lift foot rests TRANSFERS: TOILET - SCORE: 5-SUP TRANSFERS: SHOWER: Activity did not occur on this shift TRANSFERS: SHOWER - SCORE: 0-UNK TRANSFERS: TUB: Activity did not occur on this shift TRANSFERS: TUB - SCORE: 0-UNK LOCOMOTION: WALK: Activity did not occur on this shift LOCOMOTION: WALK - SCORE: 0-UNK LOCOMOTION: WHEELCHAIR: Activity did not occur on this shift LOCOMOTION: WHEELCHAIR - SCORE: 0-UNK COMPREHENSION: COMPREHENSION: TYPE: Both COMPREHENSION - STEP 1: Does the patient require help from a person or device, or need extra time to understand complex and a bstract ideas (such as current events, finances, discharge planning, medical issues, relationships, e tc)? Yes. COMPREHENSION - STEP 2: Does the patient require help to understand questions or statements about basic needs or ideas (such as hunger, thirst, sleep, safety, daily schedule, room location, or discomfort) half or more of the t nandini? No. COMPREHENSION - STEP 3: How often does the patient need help to understand directions and conversation about basic needs? Les s than 10% of the time COMPREHENSION - SCORE: 5-SUP EXPRESSION EXPRESSION: TYPE: Both EXPRESSION - STEP 1: Does the patient require help from a person or device, or need extra time expressing complex and abst ract ideas (such as current events, finances, discharge planning, medical issues, relationships, etc) ? Yes. EXPRESSION - STEP 2: Does the patient require help to express basic necessities or ideas (such as hunger, thirst, sleep, s afety, daily schedule, room location, or discomfort) half or more of the time? No. EXPRESSION - STEP 3: How often does the patient need help to express directions and conversation about basic needs? Less t alcant[place] 10% of the time EXPRESSION - SCORE: 5-SUP SOCIAL INTERACTION: SOCIAL INTERACTION - STEP 1: Does the patient require a helper to interact with others in social and therapeutic situations? No. SOCIAL INTERACTION - STEP 2: Does the patient need extra time in social situations, OR does s/he interact with staff, other patien ts, and family members ONLY in structured environments, OR does s/he require medication for social in teraction? Yes, patient requires medication for social interaction SOCIAL INTERACTION - SCORE: 6-BETTIE PROBLEM SOLVING: PROBLEM SOLVING - STEP 1: Does the patient need help from a person or device, or need extra time to solve complex problems such as managing a checking account or confronting interpersonal problems? Yes. PROBLEM SOLVING - STEP 2: Does the patient solve basic routine problems half or more of the time? Yes. PROBLEM SOLVING - STEP 3: How often does the patient need help to solve basic routine problems? Less than 10% of the time PROBLEM SOLVING - SCORE: 5-SUP MEMORY: MEMORY - STEP 1: Does the patient need help from a person or device, or need extra time to remember frequently encount ered people, daily routines, and executing requests? Yes. MEMORY - STEP 2: How often does the patient need help to remember frequently encountered people, daily routines, and e xecuting requests? Less than 10% of the time MEMORY - SCORE: 5-SUP SIGNATURE PANEL: The following modified sections: Eating - Score, Grooming - Score, Bathing - Score, Dressing - Upper Body - Score, Dressing - Lower Body - Score, Bladder Management - Score, Bowel Management - Score, Tr ansfers: Bed, Chair, Wheelchair - Score, Transfers: Toilet - Score, Transfers: Shower - Score, Transf ers: Tub - Score, Locomotion: Walk - Score, Locomotion: Wheelchair - Score, Comprehension - Score, Ex pression - Score, Social Interaction - Score, Problem Solving - Score, Memory - Score were [minnie hand] signed by Frieda Nicolas RN on ThuJan 21 2019 03:06:27 T-0500 (Central Daylight Time)
[2019-01-21] MEDS: PYRIDOSTIGMINE 60 MG TABLET PO SCH ×2 (04:02→12:38)
[2019-01-21] MEDS: LEVOTHYROXINE SOD 0.088 MG TAB PO SCH (06:24)
[2019-01-21] MEDS: INSULIN -REGULAR HUMAN 50 UNIT/0.5 ML ML SQ SCH ×2 (06:51→12:38)
[2019-01-21 06:53] VITALS: BP 134/49; TEMP 96.7
[2019-01-21 07:09] LABS: Potassium 3.5 mmol/L (3.5-5.1)
[2019-01-21] MEDS: PROMOD 30 ML DOSE PO SCH (08:53)
[2019-01-21] MEDS: RAMIPRIL 5 MG CAP PO SCH (08:54)
[2019-01-21] MEDS: ROPINIROLE HCL 1 MG TAB PO SCH (08:54)
[2019-01-21] MEDS: AMLODIPINE 10 MG TAB PO SCH (08:55)
[2019-01-21] MEDS: predniSONE 20 MG TAB PO SCH (08:55)
[2019-01-21] MEDS: POTASSIUM CL SA 10 MEQ TAB PO SCH (08:55)
[2019-01-21] MEDS: CRANBERRY FRUIT EXTRACT 200 MG CAP PO SCH (08:56)
[2019-01-21] MEDS: SERTRALINE HCL 50 MG TAB PO SCH (08:56)
[2019-01-21] MEDS: predniSONE 10 MG TAB PO SCH (08:56)
[2019-01-21] MEDS: FUROSEMIDE 20 MG TABLET PO SCH (08:56)
[2019-01-21] MEDS: INSULIN LISPRO 100 UNIT/1 ML SQ SCH ×2 (08:57→12:37)
[2019-01-21] MEDS: APIXABAN 2.5 MG TABLET PO SCH (08:57)
[2019-01-21] MEDS: INSULIN GLARGINE 100 UNITS/ML SQ SCH (08:58)
--- NOTE | 2019-01-21 09:42 | FAST ---
SHIFT START DATE/TIME: 01/21/2019 07:00 (CDT) SHIFT END DATE/TIME: 01/21/2019 19:00 (CDT) NAME ARNOLD FLOYD DATE OF : 1945 DATE OF ADMISSION: 01/10/2019 17:46 (CDT) PHONE: AGE: 74 N# [id number] GENDER: Female ENCOUNTER PHYSICIAN: Dr. Noam Patricia M.D. ADMISSION DIAGNOSIS: - Neurologic Conditions 03 - Neuromuscular Disorders (03.8) Myasthenia gravis with (acute) exacerbation (G70.01). EATING: EATING - STEP 1: Does the patient require the assistance of a person or device, or need extra time when eating? No. EATING - SCORE: 7-IND GROOMING: Comb/brush hair GROOMING - STEP 1: Does the patient require the assistance of a person or device, or need extra time when grooming? Yes. GROOMING - STEP 2: Does the patient require the assistance of a helper? No. The patient only requires an assistive devic e, OR takes more than reasonable time to groom, OR there is a concern for safety as the patient groom s GROOMING - SCORE: 6-BETTIE BATHING: Activity did not occur on this shift BATHING - SCORE: 0-UNK DRESSING - UPPER BODY: Activity did not occur on this shift ARTICLES SCORE Total number of steps: 0 DRESSING - UPPER BODY - SCORE: 0-UNK DRESSING - LOWER BODY: Activity did not occur on this shift ARTICLES SCORE Total number of steps: 0 DRESSING - LOWER BODY - SCORE: 0-UNK TOILETING: TOILETING - STEP 1: Does the patient require the assistance of a person or device, or need extra time with toileting? Yes . TOILETING - STEP 2: Does the patient require the assistance of a helper? No. TOILETING - SCORE: 6-BETTIE BLADDER MANAGEMENT: BLADDER MANAGEMENT - STEP 1: Does the patient control the bladder completely and intentionally without equipment or devices or med ications, and is always continent? Yes. BLADDER MANAGEMENT - SCORE: 7-IND BLADDER MANAGEMENT - FREQUENCY OF ACCIDENTS: BLADDER MANAGEMENT(FA) - STEP 1: How many accidents has the patient had during the current shift? 0 BOWEL MANAGEMENT: BOWEL MANAGEMENT - STEP 1: Does the patient control bowels completely and intentionally without equipment devices or medications AND is always continent? Yes. BOWEL MANAGEMENT - SCORE: 7-IND BOWEL MANAGEMENT - FREQUENCY OF ACCIDENTS: BOWEL MANAGEMENT(FA) - STEP 1: How many accidents has the patient had during the current shift? 1 TRANSFERS: BED, CHAIR, WHEELCHAIR: TRANSFERS: BED, CHAIR, WHEELCHAIR - STEP 1: Does the patient require assistance of a person or device, or need extra time with bed, chair, or whe elchair transfers? Yes. TRANSFERS: BED, CHAIR, WHEELCHAIR - STEP 2: Does the patient require the assistance of a helper? Yes. TRANSFERS: BED, CHAIR, WHEELCHAIR - STEP 3: How much assistance does the patient require from the helper? Only supervision TRANSFERS: BED, CHAIR, WHEELCHAIR - SCORE: 5-SUP TRANSFERS: TOILET: TRANSFERS: TOILET - STEP 1: Does the patient require the assistance of a person or device, or need extra time with toilet transfe rs? Yes. TRANSFERS: TOILET - STEP 2: Does the patient require the assistance of a helper? No. Patient only requires an assistive device bahena ch as a grab bar or special seat, OR s/he takes more than reasonable time to perform toilet transfers , OR there is a safety concern when s/he performs toilet transfers. TRANSFERS: TOILET - SCORE: 6-BETTIE TRANSFERS: SHOWER: Activity did not occur on this shift TRANSFERS: SHOWER - SCORE: 0-UNK TRANSFERS: TUB: Activity did not occur on this shift TRANSFERS: TUB - SCORE: 0-UNK LOCOMOTION: WALK: Activity did not occur on this shift LOCOMOTION: WALK - SCORE: 0-UNK LOCOMOTION: WHEELCHAIR: Activity did not occur on this shift LOCOMOTION: WHEELCHAIR - SCORE: 0-UNK COMPREHENSION: COMPREHENSION - SCORE: 0-UNK EXPRESSION EXPRESSION - SCORE: 0-UNK SOCIAL INTERACTION: SOCIAL INTERACTION - SCORE: 0-UNK PROBLEM SOLVING: PROBLEM SOLVING - SCORE: 0-UNK MEMORY: MEMORY - SCORE: 0-UNK SIGNATURE PANEL: The following modified sections: Eating - Score, Grooming - Score, Bathing - Score, Dressing - Upper Body - Score, Dressing - Lower Body - Score, Toileting - Score, Bladder Management - Score, Bowel Man agement - Score, Transfers: Bed, Chair, Wheelchair - Score, Transfers: Toilet - Score, Transfers: Treasure wer - Score, Transfers: Tub - Score, Locomotion: Walk - Score, Locomotion: Wheelchair - Score, Compre hension - Score, Expression - Score, Social Interaction - Score, Problem Solving - Score, Memory - Sc ore were [electronically] signed by Denisse Hernandez CNA on ThuJan 21 2019 09:41:28 T-0500 (Centra l Daylight Time)
--- NOTE | 2019-01-21 10:03 | P.RH.PN ---
Estimated Length of Stay: 13 Expected Discharge Date: 01/22/19 Discharge Disposition Plan: Home Family Support: Yes Alf Goal: Mobility, Transfers, Self Care Vital Signs: Last Vital Signs Temp 96.7 F L 01/21/19 06:50 Pulse 67 01/21/19 08:56 Resp 16 01/21/19 06:50 BP 134/49 L 01/21/19 08:56 Pulse Ox 100 01/21/19 06:50 Laboratory: Laboratory Last Values WBC 18.5 K/uL (4.3-10.9) H 01/20/19 07:19 RBC 3.63 M/uL (3.86-4.86) L 01/20/19 07:19 Hgb 12.3 g/dL (12.0-15.0) 01/20/19 07:19 Hct 38.0 % (36.0-45.0) 01/20/19 07:19 MCV 104.8 fL (80-100) H 01/20/19 07:19 MCH 34.0 pg (27.0-35.0) 01/20/19 07:19 MCHC 32.4 g/dL (32.0-36.0) 01/20/19 07:19 RDW 19.6 % (12.1-15.2) H 01/20/19 07:19 Plt Count 236 K/uL (152-406) D 01/20/19 07:19 MPV 9.3 fL (7.6-11.3) 01/20/19 07:19 Neutrophils % 60.1 % (41.7-73.7) 01/20/19 07:19 Lymphocytes % 32.0 % (15.3-44.8) 01/20/19 07:19 Monocytes % 6.3 % (3.3-12.3) 01/20/19 07:19 Eosinophils % 0.7 % (0-4.4) 01/20/19 07:19 Basophils % 0.9 % (0-1.3) 01/20/19 07:19 Absolute Neutrophils 11.1 K/uL (1.8-8.0) H 01/20/19 07:19 Segmented Neutrophils 58 % (40-80) 01/11/19 05:36 Band Neutrophils 3 % (0-1) H 01/11/19 05:36 Absolute Lymphocytes 5.9 K/uL (0.7-4.9) H 01/20/19 07:19 Lymphocytes 32 % (15-42) 01/11/19 05:36 Monocytes 6 % (0-10) 01/11/19 05:36 Absolute Monocytes 1.2 K/uL (0.1-1.3) 01/20/19 07:19 Absolute Eosinophils 0.1 K/uL (0-0.5) 01/20/19 07:19 Absolute Basophils 0.2 K/uL (0-0.5) 01/20/19 07:19 Metamyelocytes 1 % (0-0) H 01/11/19 05:36 Nucleated RBCs 2 /100WBC 01/11/19 05:36 Polychromasia 1+ 01/14/19 05:52 Basophilic Stippling 1+ 01/11/19 05:36 Anisocytosis 1+ 01/14/19 05:52 Macrocytosis 2+ 01/11/19 05:36 Schistocytes 1+ 01/11/19 05:36 Morphology Comment Noted (NOT SEEN) 01/14/19 05:52 Sodium 146 mmol/L (136-145) H 01/21/19 06:34 Potassium 3.5 mmol/L (3.5-5.1) 01/21/19 06:34 Chloride 108 mmol/L (98-107) H 01/21/19 06:34 Carbon Dioxide 33 mmol/L (21-32) H 01/21/19 06:34 BUN 34 mg/dL (7-18) H 01/21/19 06:34 Creatinine 0.83 mg/dL (0.55-1.3) 01/21/19 06:34 Estimated GFR 68 mL/min (=/>90) L 01/21/19 06:34 Glucose 72 mg/dL (74-106) L 01/21/19 06:34 POC Glucose 93 mg/dl (65-120) 01/21/19 06:47 Lactic Acid 1.3 mmol/L (0.4-2.0) 01/14/19 05:52 Calcium 8.7 mg/dL (8.5-10.1) 01/21/19 06:34 Magnesium 2.4 mg/dL (1.8-2.4) 01/20/19 07:19 Lactate Dehydrogenase 723 U/L (84-246) H 01/13/19 15:15 Albumin 2.6 g/dL (3.4-5.0) L 01/20/19 07:19 Prealbumin 24.7 mg/dL (20-40) 01/20/19 07:19 Procalcitonin 0.06 ng/mL (<0.50) 01/13/19 15:15 Urine Color Yellow 01/10/19 21:05 Urine Appearance Clear 01/10/19 21:05 Urine pH 7.0 (5.0-7.0) 01/10/19 21:05 Ur Specific [place] 1.010 (1.005-1.030) 01/10/19 21:05 Urine Ketones Negative (NEG) 01/10/19 21:05 Urine Blood Negative (NEG) 01/10/19 21:05 Urine Nitrite Negative (NEG) 01/10/19 21:05 Urine Bilirubin Negative (NEG) 01/10/19 21:05 Urine Urobilinogen 0.2 mg/dL (0.2-1.0) 01/10/19 21:05 Ur Leukocyte Esterase Negative (NEG) 01/10/19 21:05 Urine RBC None seen /HPF (NONE SEEN) 01/10/19 21:05 Urine WBC None seen /HPF (<5) 01/10/19 21:05 Ur Squamous Epith Cells <5 /HPF (NONE SEEN) 01/10/19 21:05 Urine Bacteria None seen /HPF (<20) 01/10/19 21:05 Urine Culture Reflexed Not needed 01/10/19 21:05 Urine Glucose 2+ (NEG) H 01/10/19 21:05 Urine Total Protein Negative (NEG) 01/10/19 21:05 Weight: 205 lb 3 oz Wound Present: Yes Closed Surgical Incision Present: No Negative Pressure Wound Therapy Present: No Physician Update: Her labs have been reviewed and are stable. Potassium is normal. She ambulates 250' with modified independence. She is doing very well with ADLs. She will be discharged home today. Medical Issues: DVT Prophylaxis - Eliquis 2.5mg BID PO Functional Improvement: Patient continues to require constant VC for motivation toward therapy. Patient capable of physically completing tasks, however wants to immediately return to bed to sleep after meals. Functional Improvement Occupational Therapy: pt can benifit with further therapy to address and cont to encourage pt to participate with adl tasks, pt requires frequent rest breaks while completing adl tasks bathing/dressing/ toileting along with static standing while managing clothing and bathing tasks. pt does require extra time for adl's and pt requires v/c's for follow through when using A/E as needed for bathing and LB dressing don/doffing. Cont to encourage and educate on safety and energy conservation techniques. Cont to increase pt's overall endurance and UB strength for adl tasks and for functional tasks. Cont to increase pt's static standing for safet and functional transfers and tasks. Speech Therapy Update: Patient cont to present with [id number] cognitive impairments; characterized by poor STM, safety awareness, and poor insight. Patient is MOD I with auditory comprehension, verbal expression, and social interaction. Patient is at SUPV to MIN A for problem solving and MAX A for memory. 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 Please see the Rehabilitation Signature page for all necessary signatures.
--- NOTE | 2019-01-21 15:03 | FAST ---
ENCOUNTER DATE AND TIME: 01/21/2019 08:00 (CDT) NAME ARNOLD FLOYD DATE OF : 1945 DATE OF ADMISSION: 01/10/2019 17:46 (CDT) PHONE: AGE: 74 N# [id number] GENDER: Female ENCOUNTER PHYSICIAN: Dr. Noam Patricia M.D. ADMISSION DIAGNOSIS: - Neurologic Conditions 03 - Neuromuscular Disorders (03.8) Myasthenia gravis with (acute) exacerbation (G70.01). EATING: Activity did not occur on this shift EATING - SCORE: 0-UNK GROOMING: Comb/brush hair Wash, rinse, and dry face Wash, rinse, and dry hands GROOMING - STEP 1: Does the patient require the assistance of a person or device, or need extra time when grooming? No. GROOMING - SCORE: 7-IND BATHING: Abdomen Buttocks Chest Left arm Left lower leg and foot Left upper leg Perineal area Right arm Right lower leg and foot Right upper leg BATHING - STEP 1: Does the patient require the assistance of a person or device, or need extra time when bathing? Yes. BATHING - STEP 2: Does the patient require the assistance of a helper? Yes. BATHING - STEP 3: How much assistance does the patient require from the helper? Only supervision, cuing, coaxing, instr uctions, encouragement BATHING - SCORE: 5-SUP DRESSING - UPPER BODY: T-shirt/pullover shirt (four steps) ARTICLES SCORE Total number of steps: 4 DRESSING - UPPER BODY - STEP 1: Does the patient require help from a person or device, or need extra time when dressing above the mariya st? Yes. DRESSING - UPPER BODY - STEP 2: Does the patient require the assistance of a helper? Yes. DRESSING - UPPER BODY - STEP 3: Does the helper touch the patient while dressing? No. DRESSING - UPPER BODY - SCORE: 5-SUP DRESSING - LOWER BODY: Elastic waist pants (three steps) Underwear (three steps) ARTICLES SCORE Total number of steps: 6 DRESSING - LOWER BODY - STEP 1: Does the patient require help from a person or device, or need extra time when dressing below the mariya st? Yes. DRESSING - LOWER BODY - STEP 2: Does the patient require the assistance of a helper? Yes. DRESSING - LOWER BODY - STEP 3: Does the helper touch the patient while dressing? No. DRESSING - LOWER BODY - SCORE: 5-SUP TOILETING: TOILETING - STEP 1: Does the patient require the assistance of a person or device, or need extra time with toileting? Yes . TOILETING - STEP 2: Does the patient require the assistance of a helper? Yes. TOILETING - STEP 3: How much assistance does the patient require from the helper? Only supervision TOILETING - SCORE: 5-SUP BLADDER MANAGEMENT: Activity did not occur on this shift BLADDER MANAGEMENT - SCORE: 7-IND BOWEL MANAGEMENT: Activity did not occur on this shift BOWEL MANAGEMENT - SCORE: 7-IND TRANSFERS: BED, CHAIR, WHEELCHAIR: Activity did not occur on this shift TRANSFERS: BED, CHAIR, WHEELCHAIR - SCORE: 0-UNK TRANSFERS: TOILET: TRANSFERS: TOILET - STEP 1: Does the patient require the assistance of a person or device, or need extra time with toilet transfe rs? Yes. TRANSFERS: TOILET - STEP 2: Does the patient require the assistance of a helper? Yes. TRANSFERS: TOILET - STEP 3: How much assistance does the patient require from the helper? Only supervision, cuing, coaxing, OR he lp to set out transfer equipment or to lock brakes and/or lift foot rests TRANSFERS: TOILET - SCORE: 5-SUP TRANSFERS: SHOWER: Activity did not occur on this shift TRANSFERS: SHOWER - SCORE: 0-UNK TRANSFERS: TUB: Activity did not occur on this shift TRANSFERS: TUB - SCORE: 0-UNK LOCOMOTION: WALK: Activity did not occur on this shift LOCOMOTION: WALK - SCORE: 0-UNK LOCOMOTION: WHEELCHAIR: Activity did not occur on this shift LOCOMOTION: WHEELCHAIR - SCORE: 0-UNK LOCOMOTION: STAIRS: Activity did not occur on this shift LOCOMOTION: STAIRS - SCORE: 0-UNK COMPREHENSION: COMPREHENSION - SCORE: 0-UNK EXPRESSION EXPRESSION - SCORE: 0-UNK SOCIAL INTERACTION: SOCIAL INTERACTION - SCORE: 0-UNK PROBLEM SOLVING: PROBLEM SOLVING - SCORE: 0-UNK MEMORY: MEMORY - SCORE: 0-UNK SIGNATURE PANEL: The following modified sections: Eating - Score, Grooming - Score, Bathing - Score, Dressing - Upper Body - Score, Dressing - Lower Body - Score, Toileting - Score, Transfers: Bed, Chair, Wheelchair - S core, Transfers: Toilet - Score, Transfers: Shower - Score, Transfers: Tub - Score, Comprehension - S core, Expression - Score, Social Interaction - Score, Problem Solving - Score, Memory - Score were [e lectronically] signed by ALPHONSE Olivo on ThuJan 21 2019 15:03:02 [facility]-0500 (Formerly [facility] Time)
--- NOTE | 2019-01-21 15:23 | FAST ---
ENCOUNTER DATE AND TIME: 01/21/2019 08:00 (CDT) NAME ARNOLD FLOYD DATE OF : 1945 DATE OF ADMISSION: 01/10/2019 17:46 (CDT) PHONE: AGE: 74 N# [id number] GENDER: Female ENCOUNTER PHYSICIAN: Dr. Noam Patricia M.D. ADMISSION DIAGNOSIS: - Neurologic Conditions 03 - Neuromuscular Disorders (03.8) Myasthenia gravis with (acute) exacerbation (G70.01). EATING: Activity did not occur on this shift EATING - SCORE: 0-UNK GROOMING: Activity did not occur on this shift GROOMING - SCORE: 0-UNK BATHING: Activity did not occur on this shift BATHING - SCORE: 0-UNK DRESSING - UPPER BODY: Activity did not occur on this shift Patient is not dressing in public clothing ARTICLES SCORE Total number of steps: 0 DRESSING - UPPER BODY - SCORE: 0-UNK DRESSING - LOWER BODY: Activity did not occur on this shift Patient is not dressing in public clothing ARTICLES SCORE Total number of steps: 0 DRESSING - LOWER BODY - SCORE: 0-UNK TOILETING: Activity did not occur on this shift TOILETING - SCORE: 0-UNK BLADDER MANAGEMENT: Activity did not occur on this shift BLADDER MANAGEMENT - SCORE: 7-IND BOWEL MANAGEMENT: Activity did not occur on this shift BOWEL MANAGEMENT - SCORE: 7-IND TRANSFERS: BED, CHAIR, WHEELCHAIR: TRANSFERS: BED, CHAIR, WHEELCHAIR - STEP 1: Does the patient require assistance of a person or device, or need extra time with bed, chair, or whe elchair transfers? Yes. TRANSFERS: BED, CHAIR, WHEELCHAIR - STEP 2: Does the patient require the assistance of a helper? No. Patient only requires an assistive device fo r bed, chair, wheelchair transfers such as a sliding board, grab bar, or brace, OR s/he takes more th an reasonable time, OR there is a safety concern when s/he performs the transfers TRANSFERS: BED, CHAIR, WHEELCHAIR - SCORE: 6-BETTIE TRANSFERS: TOILET: Activity did not occur on this shift TRANSFERS: TOILET - SCORE: 0-UNK TRANSFERS: SHOWER: Activity did not occur on this shift TRANSFERS: SHOWER - SCORE: 0-UNK TRANSFERS: TUB: Activity did not occur on this shift TRANSFERS: TUB - SCORE: 0-UNK LOCOMOTION: WALK: LOCOMOTION: WALK - STEP 1: Does the patient need help from a person or device, or need extra time to walk 150 feet? Yes. LOCOMOTION: WALK - STEP 2: How much assistance does the patient require to walk a minimum of 150 feet? Only supervision, cuing, or coaxing LOCOMOTION: WALK - SCORE: 5-SUP LOCOMOTION: WHEELCHAIR: LOCOMOTION: WHEELCHAIR - STEP 1: Does the patient need help to go 150 feet in a wheelchair? Yes. LOCOMOTION: WHEELCHAIR - STEP 2: How much assistance does the patient need from the helper? Only supervision, cuing, or coaxing LOCOMOTION: WHEELCHAIR - SCORE: 5-SUP LOCOMOTION: STAIRS: Activity did not occur on this shift LOCOMOTION: STAIRS - SCORE: 0-UNK COMPREHENSION: COMPREHENSION - SCORE: 0-UNK EXPRESSION EXPRESSION - SCORE: 0-UNK SOCIAL INTERACTION: SOCIAL INTERACTION - SCORE: 0-UNK PROBLEM SOLVING: PROBLEM SOLVING - SCORE: 0-UNK MEMORY: MEMORY - SCORE: 0-UNK SIGNATURE PANEL: The following modified sections: Transfers: Bed, Chair, Wheelchair - Score, Transfers: Toilet - Score , Locomotion: Walk - Score, Locomotion: Wheelchair - Score, Locomotion: Stairs - Score were [electron jori] signed by Chevy Amanda PTA on ThuJan 21 2019 15:22:39 GMT-0500 (Central Daylight Time)
--- NOTE | 2019-01-31 15:24 | R.HP ---
FACILITY: [facility] ENCOUNTER DATE AND TIME: 01/11/2019 20:01 (CDT) MR#: [id number] NAME ARNOLD FLOYD ADDRESS: [address] [place] [address] CITY: [place] [address]IP [id number] PHONE: DATE OF : 1945 AGE: 74 SSN# [id number] GENDER: Female DEXTERITY Right-handed MARITAL STATUS RACE White PRE-HOSPITAL LIVING SETTING 01 - Home (private home/apt. board/care, assisted living, senior care, transitional living) PRE-HOSPITAL LIVING WITH Family/Relatives ENCOUNTER PHYSICIAN: Dr. Noam Patricia M.D. REFERRING DOCTOR: David Macedo DATE OF ADMISSION: 01/10/2019 17:46 (CDT) REFERRING FACILITY [facility] HOME TYPE AND DETAILS: Type of home: single family house # of steps to enter the residence: 0 # of steps within the residence: 0 # of levels in the residence: 1 ADMISSION DIAGNOSIS: Myasthenia gravis with (acute) exacerbation (G70.01) ONSET DATE: 12/24/2018 PRIMARY DIAGNOSIS-RELATED SURGERIES: No surgeries related to the primary diagnosis were performed. 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 is a 74 yo Right-handed white female. On 12/24/2018 she was admitted to [facility] with diagnosis Myasthenia gravis with (acute) exac erbation (G70.01). Her impairment category is Neurologic Conditions 03 - Neuromuscular Disorders (03.8). Pre-morbidly, Pt. was independent/mod-I in Self-Care, Sphincter Control, Transfers Control, Locomotio n, Communication, and Social Cognition; and she had good Sphincter Control. Currently, she has deficits of Transfers Control, Locomotion, Communication, Social Cognition, Endura nce, Balance, Safety Awareness, and Self-Care. Pt. is now referred to [facility] for acute in-patient rehabilitation in order to maximize patient's functional independence in activities of daily living, strength, ROM, and mobi lity. Patient has realistic goal of being discharged at assistance level 6-Vanessa to reside at Home with Fam kelsi/Relatives. 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 SOCIAL HISTORY: - Home Living Family/Relatives REVIEW OF SYSTEMS: - Gen No Chills Fatigue No Fever - Eyes No Double Vision No itchiness - ENMT No Difficulty Swallowing - CVS Chest Discomfort No Chest Pain No Fatigue Weight Gain - Resp No Cough No Shortness of Breath - GI Continent No Abdominal Pain No Constipation No Diarrhea - Continent No Kidney Pain No Painful Urination No Urinary Urgency - MSK No Joint Pain Muscle Cramps Stiffness - Skin No Itching No Rash No Suspicious Lesions - Neuro Coordination Difficulty No Difficulty with Concentration No Memory Loss No Seizures Weakness - Psych No Anxiety No Depression No HIV Exposure No Persistent Infections No Seasonal Allergies - Endo No Cold/Heat Intolerance No Excessive Hunger No Excessive Thirst No Excessive Urination PHYSICAL EXAM - Gen Alert and awake Lying in bed No apparent distress Oriented to: person, time, and place - Skin Mild bruising on the arms. No abnormalities - Eyes No abnormalities - ENMT No abnormalities - Neck No abnormalities - CVS RRR - Chest No abnormalities - Abd + bowel sounds - GI Soft Deferred - No abnormalities - Ext Mild edema in both lower extremities. - MSK 4/5 weakness in both lower extremities. - Neuro No focal deficits - Psych No abnormalities VITAL SIGNS Temperature: 98.0 F SBP/DBP: 137/62 Pulse: 79 Resp: 16 NURSING: - Shower allowing shower - Lab Results blood Sugar Check ACHS ACTIVITIES OOB only with supervision FUNCTIONAL STATUS: - Self-Care A. Eating Ind Ind B. Grooming Ind sup C. Bathing Ind Diane D. Dressing - Upper Ind Diane E. Dressing - Lower Ind modA F. Toileting Ind sup - Sphincter Control G: Bladder control Ind Ind H: Bowel control Ind Ind - Transfers Control I. Bed/Chair/Wheelchair Ind Daine J. Toilet Ind Diane K. Tub/Shower Ind Diane - Locomotion L. Walk/Wheelchair (C) Ind modA L. Walk/Wheelchair (W) Ind modA M. Stairs Ind ADNO - Communication N. Comprehension (B) Ind sup O. Expression (B) Ind sup - Social Cognition P. Social Interaction Ind sup Q. Problem Solving Ind sup R. Memory Ind sup - Endurance Poor - Balance Fair - Safety Awareness Fair CURRENT FUNC. DEFICITS: Transfers Control, Locomotion, Communication, Social Cognition, Endurance, Balance, Safety Awareness, and Self-Care MEDICATIONS: - Other See attached MAR (Medication Administration Record) ASSESSMENT: Pt. is a 74 yo Right-handed white female.On 12/24/2018 she was admitted to [facility] with diag nosis Myasthenia gravis with (acute) exacerbation (G70.01).Her impairment category is Neurologic Cond itions 03 - Neuromuscular Disorders (03.8).Pre-morbidly, Pt. was independent/mod-I in Self-Care, Sph incter Control, Transfers Control, Locomotion, Communication, and Social Cognition; and she had good Sphincter Control.Currently, she has deficits of Transfers Control, Locomotion, Communication, Social Cognition, Endurance, Balance, Safety Awareness, and Self-Care.Pt. is now referred to [facility] for acute in-patient rehabilitation in order to maximize patient's functional ind ependence in activities of daily living, strength, ROM, and mobility.- Rehab Goal Patient has realistic goal of being discharged at assistance level 6-Vanessa to reside at Home with Fam kelsi/Relatives. - Physical Therapy Gait dysfunction - to improve, our physical therapists will perform initial evaluation of pt's status upon admission and devise an individualized program for Gait Training, and Wheel Chair mobility Inability to transfer - to improve, our physical therapists will perform initial evaluation of pt's s tatus upon admission and devise an individualized program for Bed mobility Need for home safety evaluation - to improve, our physical therapists will perform initial evaluation of pt's status upon admission and devise an individualized program for Home Evaluation Need in caregiver upon discharge - to improve, our physical therapists will perform initial evaluatio n of pt's status upon admission and devise an individualized program for Caregiver Training New precaution - to improve, our physical therapists will perform initial evaluation of pt's status u torsten admission and devise an individualized program for Patient precaution education Edema - to improve, our physical therapists will perform initial evaluation of pt's status upon admi ssion and devise an individualized program for Elevation Training, and Lymphedema Therapy Poor balance - to improve, our physical therapists will perform initial evaluation of pt's status upo n admission and devise an individualized program for Balance Training Poor endurance - to improve, our physical therapists will perform initial evaluation of pt's status u torsten admission and devise an individualized program for Endurance Training Weakness - to improve, our physical therapists will perform initial evaluation of pt's status upon ad mission and devise an individualized program for Aquatic Therapy, Neuromuscular Reeducation, and Stre ngthening Achieving independence - to improve, our physical therapists will perform initial evaluation of pt's status upon admission and devise an individualized program for Community Reintegration Activities - Occupational Therapy ADL deficits - to improve, our occupation therapists will perform initial evaluation of pt's status u torsten admission and devise an individualized program for Bathing, Bed mobility, Community Reintegration , Cooking, Dressing, Eating, Fine Motor Skills, Grooming, Homemaking, Kitchen Mobility, Laundry, Alesha ent Education, Safety Awareness, Splinting - Positioning, Transfers(Toilet, Tub, Shower), and Wheel C hair Management Cognitive deficits - to improve, our occupation therapists will perform initial evaluation of pt's st atus upon admission and devise an individualized program for Cognition - orientation Need for field care advocate - to improve, our occupation therapists will perform initial evaluation of pt's s tatus upon admission and devise an individualized program for Caregiver Training Weakness - to improve, our occupation therapists will perform initial evaluation of pt's status upon admission and devise an individualized program for Aquatic Therapy, Balance, Endurance, UE ROM, and U E strengthening MEDICAL PLAN: - Diet Type Start Regular - Diet - Liquid Texture Start Regular - Tube Feed Start N/A - Lab Results blood Sugar Check ACHS - Other See attached MAR (Medication Administration Record) - Diet - Solid Texture Regular - Shower shower DISCHARGE PLAN: - Estimated Length of Stay (days) 13. - Consensus on plan Discharge plan has been discussed with primary caregiver. Patient/Family is in agreement with the cristian n. Primary caregiver is in agreement with the plan. - Patient/Family Goals Return home with assistance. - Planned Living Setting Upon Discharge Home, to live with Family/Relatives. SIGNATURE PANEL: (CDT)
--- NOTE | 2019-01-31 15:25 | PAPE ---
PATIENT: [facility] MR# [id number] REFERRING DOCTOR David Macedo EVALUATION DATE AND TIME 01/11/2019 20:10 (CDT) NAME ARNOLD FLOYD DATE OF 1945 AGE 74 PHONE N# [id number] GENDER female EVALUATING PHYSICIAN Dr. Noam Patricia M.D. 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 PATIENT NEEDS CLOSE MEDICAL SUPERVISION BY A REHABILITATION PHYSICIAN FOR: Bowel and Bladder Management Coordination of Treatment Team Diabetes Management Medical and Co-Morbidity Management PATIENT REQUIRES 24X7 REHAB NURSING FOR MEDICAL AND FUNCTIONAL MGT. OF THE FOLLOWING DEFICITS: ADL's Ambulation Bowel and Bladder Management Cognition Communication Disease Management Medication Management Patient/Family Education Providing Safe Environment Transfers PATIENT REQUIRES INTENSIVE, COORDINATED INTERDISCIPLINARY APPROACH TO REHAB: Arranging Home Equipment/Services Discharge Planning Family Intervention/Training Metal Ceiling Hanger/Case Management LIST OF IDENTIFIED AND POTENTIAL PROBLEMS: Alteration in leisure activities Bladder, Incontinence Bowel, Incontinence Diabetes, Hyperglycemia/hypoglycemia Issues Infection, Actual or Potential Mobility Impaired Pain, Alteration in Comfort Self Care Deficit Skin Integrity, Actual or Potential Urinary Tract Infection (UTI), Actual or Potential RISK FOR COMPLICATIONS - COPD Acute Resp failure. Pneumonia. Resp. Arrest. INTERVENTIONS - COPD 02 sats. Medications. Nebulizers. Oxygen. Resp. therapy. X-rays. PATIENT COULD BE AT RISK FOR COMPLICATIONS FROM ADVERSE MEDICAL CONDITIONS DUE TO HIS/HER COMORBIDITI ES AND THE RIGORS OF THE INTENSIVE REHABILLITATION PROGRAM. METHODS OR INTERVENTIONS TO AVOID COMPLIC ATIONS INCLUDE: - Infection Clinical staff to assess and manage the signs and symptoms of infection including fever, redness, war mth, etc. - Urinary Tract Infection - Falls Patient will be evaluated for Fall Precautions and will be placed on Fall Precautions as indicated pe r protocol. - Skin Breakdown Nursing will assess skin daily using assessment tool and will place on Skin Breakdown Precautions as indicated per protocol. - Pain Clinical staff may employ non-medication methods such as massage, distraction, decrease stimulus, etc . as needed. Clinical staff will assess patient's pain level every shift per protocol to assess and e nsure pain management effectiveness. Medications will be given and the pain level re-assessed. PRELIMINARY PLAN OF CARE: - Physical Therapy Patient needs Physical Therapy for a daily minimum of 1.5 hours at least 5 out of 7 days, to improve: Mobility, Strengthening, Transfers, Stretching, ROM, Endurance, Ability to manage stairs, Gait, and Balance. - Speech Therapy Patient needs Speech Therapy for a daily minimum of 0.5 hours at least 5 out of 7 days, to improve: S wallowing, Cognition, Language Skills, and Compensatory Strategies. - Rehabilitation Nursing Patient requires 24x7 Rehabilitation Nursing for: Pain Issues, Identifying and preventing risk factor s, Monitoring and reporting current medical conditions, Assisting with ambulation and transfer, Edilberto ting with all ADL-s, Teaching patients about disease process and medications, Family teaching, Provid ing safe environment, Bowel and Bladder Issues, Skin Integrity, and Medication Management. Patient needs Metal Ceiling Hanger and/or Case Management for: Discharge Planning, Arranging Home Equipmen t or Services, and Family Interventions. - Dietary and Nutrition Services Patient needs Dietary and Nutrition Services for: Adequate Nutrition, Nutritional Supplements, and Nu tritional Education. - Occupational Therapy Patient needs Occupational Therapy for a daily minimum of 1.5 hours at least 5 out of 7 days, to impr ove Activities of Daily Living, including: Eating, Grooming, Bathing, Dressing, Toileting, Toilet Tra nsfers, Community Reintegration, Higher functional activities, Adaptive Equipment, Splinting, Househo ld Tasks, and Other activities as determined. POTENTIAL FUNCTIONAL GOALS FOR PATIENT TO ACHIEVE BY DISCHARGE: - Safety Precaution Patient will remain free from falls or injury at time of discharge. - Bed Mobility Patient will perform bed mobility at 4-Diane level of assistance. - Transfers Patient will complete transfers from bed to chair at 4-Diane level of assistance. - Mobility Patient will ambulate 150 ft with 4-Diane level of assistance with RW. PATIENT REHAB POTENTIAL Stacia FLOYD is able and expected to receive 3 hours of individualized therapy daily on at least 5 of every 7 days Stacia FLOYD's prognosis for significant practical improvement within a reasonable period of time appe ars Good Expected level of measurable improvement will be of a practical value to Stacia FLOYD's functional cap acity or adaptations to impairments Has a viable Discharge Plan Medically appropriate; condition is sufficiently stable to participate in intensive rehab program DISCHARGE PLAN: - Estimated Length of Stay (days) 13. - Consensus on plan Discharge plan has been discussed with primary caregiver. Patient/Family is in agreement with the cristian n. Primary caregiver is in agreement with the plan. - Patient/Family Goals Return home with assistance. - Planned Living Setting Upon Discharge Home, to live with Family/Relatives. CONCLUSION ON REHABILITATION NECESSITY: I have evaluated patient's pre-admission functional status and, comparing it to the patient's post-ad mission functional status now, I conclude that the pre-admission assessment was accurate. Patient's c ondition on admission supports the medical necessity of admission to IRF. It is safe to proceed with patient's therapy program. SIGNATURE PANEL: (CDT)
--- NOTE | 2019-02-04 17:54 | R.DS ---
FACILITY [facility] MR# [id number] NAME ARNOLD FLOYD ADDRESS [address] [facility] [place] [address] PHONE DATE OF 1945 AGE 74 SSN# [id number] GENDER Female DEXTERITY Right-handed MARITAL STATUS RACE White ENCOUNTER PHYSICIAN Dr. Noam Patricia M.D. REFERRING DOCTOR David Macedo REFERRING FACILITY [facility] DISCHARGE DIAGNOSIS: - Neurologic Conditions 03 - Neuromuscular Disorders (03.8) Myasthenia gravis with (acute) exacerbation (G70.01). 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 NURSING: - Shower allowing shower - Lab Results blood Sugar Check ACHS ACTIVITIES OOB only with supervision THERAPIES: - Dietary and Nutrition Adequate Nutrition Nutritional Education Nutritional Supplements HISTORY OF PRESENT ILLNESS: Pt. is a 74 yo Right-handed white female.On 12/24/2018 she was admitted to [facility] with diag nosis Myasthenia gravis with (acute) exacerbation (G70.01).Her impairment category is Neurologic Cond itions 03 - Neuromuscular Disorders (03.8).Pre-morbidly, Pt. was independent/mod-I in Self-Care and Sphincter Control; and she had good Sphincter Control.Currently, she has deficits of Transfers Contro l, Locomotion, Communication, Social Cognition, Endurance, Balance, Safety Awareness, and Self-Care.P t. is now referred to [facility] for acute in-patient rehabilitation in order to maximize patient's functional independence in activities of daily living, strength, ROM, and mobil ity.- Rehab Goal Patient has realistic goal of being discharged at assistance level 6-Vanessa to reside at Home with Fam kelsi/Relatives. DIET - LIQUID TEXTURE: On 01/10/2019 Pt was upgraded to Regular Diet - Liquid Texture. DIET - SOLID TEXTURE: On 01/10/2019 Pt was upgraded to Regular Diet - Solid Texture. DIET TYPE: On 01/10/2019 Pt was upgraded to Regular Diet Type. TUBE FEED: On 01/10/2019 Pt was changed to N/A Tube Feed. DISCHARGE PHYSICAL EXAM - Gen Alert and awake Lying in bed No apparent distress Oriented to: person, time, and place - Skin Mild bruising on the arms. No abnormalities - Eyes No abnormalities - ENMT No abnormalities - Neck No abnormalities - CVS RRR - Chest No abnormalities - Abd + bowel sounds - GI Soft Deferred - No abnormalities - Ext Mild edema in both lower extremities. - MSK 4/5 weakness in both lower extremities. - Neuro No focal deficits - Psych No abnormalities FUNCTIONAL STATUS: - Self-Care A. Eating 7-Ind B. Grooming 7-Ind C. Bathing 5-sup D. Dressing - Upper 5-sup E. Dressing - Lower 5-sup F. Toileting 5-sup - Sphincter Control G: Bladder control 7-Ind H: Bowel control 7-Ind - Transfers Control I. Bed/Chair/Wheelchair 6-Vanessa J. Toilet 6-Vanessa K. Tub/Shower 5-sup - Locomotion L. Walk/Wheelchair (C) 5-sup L. Walk/Wheelchair (W) 5-sup M. Stairs 5-sup - Communication N. Comprehension (B) 5-sup O. Expression (B) 5-sup - Social Cognition P. Social Interaction 5-sup Q. Problem Solving 5-sup R. Memory 5-sup - Endurance Poor - Balance Fair - Safety Awareness Fair DISCHARGE INSTRUCTIONS: - N/A Eliquis 2.5 mg twice daily. DISCHARGE PLAN, FOLLOW UP CARE PROVISIONS: - Estimated Length of Stay (days) 13. - Consensus on plan Discharge plan has been discussed with primary caregiver. Patient/Family is in agreement with the cristian n. Primary caregiver is in agreement with the plan. - Patient/Family Goals Return home with assistance. - Planned Living Setting Upon Discharge Home, to live with Family/Relatives. SIGNATURE PANEL: (CDT)
== END 2019-01-21 13:50 | disposition home health service (06) | DRG 57 ==
LOC: 5TH 17:46
PROVIDERS: ADMIT Psychiatry & Neurology Neurology with Special Qualifications in Child Neurology; ATTEND Psychiatry & Neurology Neurology with Special Qualifications in Child Neurology
DX: G70.01 Myasthenia gravis with (acute) exacerbation (principal); N17.9 Acute kidney failure, unspecified; I50.22 Chronic systolic (congestive) heart failure; E83.51 Hypocalcemia; I11.0 Hypertensive heart disease with heart failure; E11.65 Type 2 diabetes mellitus with hyperglycemia; D32.0 Benign neoplasm of cerebral meninges; J44.9 Chronic obstructive pulmonary disease, unspecified; D69.59 Other secondary thrombocytopenia
CPT/HCPCS: 36415; 71045; 80048; 81001; 82040; 82310; 82947; 82962; 83605; 83615; 83735; 84134; 84145; 85025; 87040; 87086; 87088; 92507; 92523; 97110; 97116; 97127; 97163; 97530; 97542; J1644; J7512

== ENCOUNTER 2019-02-02 03:48 | Emergency (ER) | payer OTHER ==
--- OUTSIDE RECORDS SUMMARY | 2019-02-02 03:49 | XMS REPORT | Clinical Summary ---
:1945 Author Organization [facility] Address [address] [place] [address] Care Team Providers Name Role Phone Manfred [...] Not on file Results Not on fileafter 02/01/2018 Insurance Payer Benefit Plan / Subscriber ID Type Phone Address Group [employer] - MEDICARE [employer] MEDICARE HMO xxxxxxxx [phone] [address] [place] [address] Advance Directives For more information, please contact:[address] [phone] Code Status Date Activated Date Inactivated Comments Full Code 02/13/2014 10:17 AM 02/13/2014 6:26 PM This code status was determined by: Patient
--- OUTSIDE RECORDS SUMMARY | 2019-02-02 03:50 | XMS REPORT ---
:1945 Author Organization [facility] Address [address] [place] [address] Dr. Tillman [address] [place] [address] Care Team Providers Name Role Phone RUMA SANTANA Unavailable Unavailable Problems This patient has no known problems. Allergies, Adverse Reactions, Alerts This patient has no known allergies or adverse reactions. Medications This patient has no known medications. Encounters Start End Encounter Admission Attending Care Care Encounter Date/Time Date/Time Type Type Clinicians Facility Department ID 2018-12-24 Inpatient U [facility] [id number] 18:32:00 2018-08-16 Inpatient E [facility] [id number] 23:35:00 2018-11-29 2018-11-29 Emergency E [facility] [id number] 07:33:00 07:33:00 2018-09-21 2018-09-21 Outpatient U [facility] [id number] 18:06:00 18:06:00 2018-09-12 2018-09-10 Inpatient U [facility] [id number] 15:01:00 00:20:00 2018-09-09 2018-09-08 Inpatient [facility] [id number] 11:57:00 09:51:00 Results Test Description Test Time Test Comments Text Results Atomic Results Result Comments TISSUE EXAM 2017-02-26 15:21:00 Surgical Pathology Report Case: [id number] Authorizing Provider: Ruma Santana MD Collected: 02/24/2017 1559 Ordering Location: [facility] Received: 02/25/2017 0810 Pathologist: Kenji [...] SERRATED POLYP/ADENOMA Signing Pathologist Direct Phone Line: [phone] signed by Kenji Hercules MD on 02/26/2017 at 3:21 [id number] x 3Diarrhea, rule out microscopic colitisA. Right/ascending [...] (BEAKER) (test 144 mg/dL 70-110 TESTED AT [facility] [address] [place] [address] [id number]) [facility] [id number] POCT-GLUCOSE [id number] 14:21:00 Test Item Value Reference Range Comments POC-GLUCOSE METER (BEAKER) 118 mg/dL 70-110 TESTED AT [address] (test ymmy=[id number]) [facility] [id number]
[2019-02-02] MEDS ORDERED: ACETAMINOPHEN 500 MG TAB ONE (05:41)
--- NOTE | 2019-02-02 06:51 | RAD REPORT ---
EXAM DESCRIPTION: RAD - Forearm Right - 02/02/2019 4:46 am CLINICAL HISTORY: Fall, right arm pain COMPARISON: None. FINDINGS: No acute fracture changes are present. There is midshaft bowing of the radius and thickeni ng of the cortex along the concavity of the midshaft. This may be remodeling from a remote injury. Os teopenic changes are present. No clearly pathologic bone process. No acute finding at the elbow joint or wrist joint. Carpal bone assessment is grossly negative but limited. There are degenerative box es at the trapezium first metacarpal articulation. No foreign body or other soft tissue abnormality. IMPRESSION: No fracture or other acute finding identifiable in the right forearm.
--- NOTE | 2019-02-02 06:52 | RAD REPORT ---
EXAM DESCRIPTION: RAD - Hand Right 2 View - 02/02/2019 4:46 am CLINICAL HISTORY: Fall, right hand and arm pain COMPARISON: None. FINDINGS: No fracture is identified. No dislocation or periosteal reaction. Degenerative changes are present at the trapezii and first metacarpal articulation with metacarpal subluxation. Degenerative changes are present in the IP joints. Radiocarpal joint space is narrowed. No air or foreign body in the soft tissues. IMPRESSION: Right hand degenerative change present as detailed. No fracture or acute finding seen.
--- NOTE | 2019-02-02 06:59 | EDPHYS ---
Physician Documentation [facility] Name: Franci Lange Age: 74 yrs Sex: Female : 1945 Arrival Date: 02/02/2019 Time: 03:56 Bed 16 Private MD: ED Physician Neo Evans HPI: 02/02 06:40 This 74 yrs old Female presents to ER via EMS with complaints of right hand tw4 pain s/p fall. 06:40 Details of fall: The patient fell from an upright position, while standing. Onset: The tw4 symptoms/episode began/occurred just prior to arrival. Associated injuries: The patient sustained right wrist and right hand. Severity of symptoms: At their worst the symptoms were mild, in the emergency department the symptoms are unchanged. The patient has not experienced similar symptoms in the past. Historical: - Allergies: 03:45 Aspirin; jb4 03:45 cefepime; jb4 03:45 CEPHALOSPORINS; jb4 03:45 Ciprofloxacin; jb4 03:45 Cortizone-10; jb4 03:45 PENICILLINS; jb4 03:45 Phenobarbital; jb4 - Home Meds: 03:45 amlodipine 10 mg tab 1 tab once daily [Active]; Fosamax 70 mg Oral tab 1 tab once wkly jb4 [Active]; furosemide 40 mg Oral tab [Active]; trulicity 0.75 mg [Active]; potassium chloride 20 mEq Oral TbER 1 tab 2 times per day [Active]; Levemir 100 unit/mL subcutaneous soln 36 unit [Active]; prednisone 20 mg Oral tab 1 tab once daily [Active]; levothyroxine 88 mcg tab 1 tab once daily [Active]; pyridostigmine bromide 60 mg Oral tab 1 tab 3 times per day [Active]; ramipril 10 mg Oral cap 1 cap once daily [Active]; rosuvastatin 20 mg Oral tab 1 tab once daily [Active]; sertraline 25 mg Oral tab 1 tab once daily [Active]; - PMHx: 03:45 CHF; Depression; Diabetes - IDDM; Hypothyroidism; Myasthenia Gravis; Myocardial jb4 infarction; Hypertension; High Cholesterol; Osteoporosis; - Immunization history:: Adult Immunizations not up to date. - Social history:: Smoking status: Patient/guardian denies using tobacco, Patient/guardian denies using alcohol. - Ebola Screening: : No symptoms or risks identified at this time. ROS: 06:40 Constitutional: Negative for fever, chills, and weight loss, Eyes: Negative for injury, tw4 pain, redness, and discharge, ENT: Negative for injury, pain, and discharge, Cardiovascular: Negative for chest pain, palpitations, and edema, Respiratory: Negative for shortness of breath, cough, wheezing, and pleuritic chest pain, Abdomen/GI: Negative for abdominal pain, nausea, vomiting, diarrhea, and constipation, Skin: Negative for injury, rash, and discoloration, Neuro: Negative for headache, weakness, numbness, tingling, and seizure. 06:40 MS/extremity: Positive for pain. Exam: 06:40 Constitutional: This is a well developed, well nourished patient who is awake, alert, tw4 and in no acute distress. Head/Face: Normocephalic, atraumatic. Chest/axilla: Normal chest wall appearance and motion. Nontender with no deformity. No lesions are appreciated. Cardiovascular: Regular rate and rhythm with a normal S1 and S2. No gallops, murmurs, or rubs. Normal PMI, no JVD. No pulse deficits. Respiratory: Lungs have equal breath sounds bilaterally, clear to auscultation and percussion. No rales, rhonchi or wheezes noted. No increased work of breathing, no retractions or nasal flaring. Abdomen/GI: Soft, non-tender, with normal bowel sounds. No distension or tympany. No guarding or rebound. No evidence of tenderness throughout. Back: No spinal tenderness. No costovertebral tenderness. Full range of motion. 06:40 Musculoskeletal/extremity: Extremities: noted in the right wrist and right hand: ROM: limited active range of motion due to pain, limited passive range of motion due to pain, in the right hand. Vital Signs: 03:45 BP 158 / 53; Pulse 77; Resp 16; Temp 98.8(O); Pulse Ox 99% on R/A; Weight 107.95 kg jb4 (R); Height 4 ft. 11 in. (149.86 cm) (R); Pain 9/10; 04:30 BP 143 / 47; Pulse 72; Resp 16; Pulse Ox 98% on R/A; jb4 05:00 BP 111 / 79; Pulse 76; Resp 16; Pulse Ox 98% on R/A; jb4 03:45 Body Mass Index 48.07 (107.95 kg, 149.86 cm) jb4 MDM: 04:07 Patient medically screened. tw4 06:40 Differential diagnosis: contusion, multiple trauma, sprain. Data reviewed: vital signs, tw4 nurses notes. Data interpreted: Pulse oximetry: Interpretation: normal. Test interpretation: by ED physician or midlevel provider: plain radiologic studies. Counseling: I had a detailed discussion with the patient and/or guardian regarding: the historical points, exam findings, and any diagnostic results supporting the discharge/admit diagnosis. Special discussion: I discussed with the patient/guardian in detail that at this point there is no indication for admission to the hospital. It is understood, however, that if the symptoms persist or worsen the patient needs to return immediately for re-evaluation. 02/02 04:21 Order name: Forearm Right XRAY tw4 02/02 04:55 Order name: Hand Right 2 View [facility] 02/02 05:37 Order name: CT C Spine tw4 02/02 05:37 Order name: CT Lumbar Spine Wo Con tw4 Administered Medications: 05:45 Drug: Tylenol 1000 mg Route: PO; jb4 06:15 Follow up: Response: No adverse reaction; Pain is decreased 4 Disposition: 02/02/19 06:58 Discharged to Home. Impression: Contusion of right wrist, Contusion of right hand, Sprain of ligaments of cervical spine. - Condition is Stable. - Discharge Instructions: Hand Contusion, Wrist Pain, Cervical Sprain. - Medication Reconciliation Form, Thank You Letter, Antibiotic Education, Prescription Opioid Use form. - Follow up: Private Physician; When: Upon discharge from the Emergency Department; Reason: If symptoms return, Recheck today's complaints, Continuance of care. - Problem is new. - Symptoms have improved. Signatures: Dispatcher [employer] [facility] Lorena Mensah RN RN tw2 Leoncio Davey RN RN jb4 Neo Evans MD MD tw4 Corrections: (The following items were deleted from the chart) 04:55 04:22 Elbow Right 2 View+RAD.RAD.BRZ ordered. [facility] 07:11 06:58 02/02/2019 06:58 Discharged to Home. Impression: Contusion of right wrist; tw2 Contusion of right hand; Sprain of ligaments of cervical spine. Condition is Stable. Forms are Medication Reconciliation Form, Thank You Letter, Antibiotic Education, Prescription Opioid Use. Follow up: Private Physician; When: Upon discharge from the Emergency Department; Reason: If symptoms return, Recheck today's complaints, Continuance of care. Problem is new. Symptoms have improved. tw4
--- NOTE | 2019-02-02 06:59 | ER ---
Nurse's Notes [facility] Name: Franci Lange Age: 74 yrs Sex: Female : 1945 Arrival Date: 02/02/2019 Time: 03:56 Bed 16 Private MD: Diagnosis: Contusion of right wrist;Contusion of right hand;Sprain of ligaments of cervical spine Presentation: 02/02 03:45 Presenting complaint: EMS states: Pt was reportedly walking across the carpet and fell jb4 landing on her right forearm. 03:45 Transition of care: patient was not received from another setting of care. Onset of jb4 symptoms was February 02, 2019. Risk Assessment: Do you want to hurt yourself or someone else? Patient reports no desire to harm self or others. Initial Sepsis Screen: Does the patient meet any 2 criteria? No. Patient's initial sepsis screen is negative. Does the patient have a suspected source of infection? No. Patient's initial sepsis screen is negative. Care prior to arrival: Glucose check: 471. 03:45 Method Of Arrival: EMS: [facility] jb4 03:45 Acuity: JAY 3 jb4 Triage Assessment: 03:45 General: Appears in no apparent distress. uncomfortable, Behavior is calm, cooperative, jb4 appropriate for age. Pain: Complains of pain in dorsal aspect of right forearm Pain does not radiate. Pain currently is 8 out of 10 on a pain scale. Quality of pain is described as throbbing. EENT: No deficits noted. No signs and/or symptoms were reported regarding the EENT system. Neuro: Level of Consciousness is awake, alert, obeys commands, Oriented to person, place, time, situation. Cardiovascular: Patient's skin is warm and dry. Respiratory: Airway is patent Respiratory effort is even, unlabored, Respiratory pattern is regular, symmetrical. GI: No deficits noted. No signs and/or symptoms were reported involving the gastrointestinal system. : No deficits noted. No signs and/or symptoms were reported regarding the genitourinary system. Derm: Skin has skin tears on to BIRD arms Skin is pink, warm \T\ dry. Musculoskeletal: Circulation, motion, and sensation intact. Range of motion: intact in all extremities. Historical: - Allergies: 03:45 Aspirin; jb4 03:45 cefepime; jb4 03:45 CEPHALOSPORINS; jb4 03:45 Ciprofloxacin; jb4 03:45 Cortizone-10; jb4 03:45 PENICILLINS; jb4 03:45 Phenobarbital; jb4 - Home Meds: 03:45 amlodipine 10 mg tab 1 tab once daily [Active]; Fosamax 70 mg Oral tab 1 tab once wkly jb4 [Active]; furosemide 40 mg Oral tab [Active]; trulicity 0.75 mg [Active]; potassium chloride 20 mEq Oral TbER 1 tab 2 times per day [Active]; Levemir 100 unit/mL subcutaneous soln 36 unit [Active]; prednisone 20 mg Oral tab 1 tab once daily [Active]; levothyroxine 88 mcg tab 1 tab once daily [Active]; pyridostigmine bromide 60 mg Oral tab 1 tab 3 times per day [Active]; ramipril 10 mg Oral cap 1 cap once daily [Active]; rosuvastatin 20 mg Oral tab 1 tab once daily [Active]; sertraline 25 mg Oral tab 1 tab once daily [Active]; - PMHx: 03:45 CHF; Depression; Diabetes - IDDM; Hypothyroidism; Myasthenia Gravis; Myocardial jb4 infarction; Hypertension; High Cholesterol; Osteoporosis; - Immunization history:: Adult Immunizations not up to date. - Social history:: Smoking status: Patient/guardian denies using tobacco, Patient/guardian denies using alcohol. - Ebola Screening: : No symptoms or risks identified at this time. Screenin:45 Abuse screen: Denies threats or abuse. Nutritional screening: No deficits noted. jb4 Tuberculosis screening: No symptoms or risk factors identified. Fall Risk Fall in past 12 months (25 points). Total Badillo Fall Scale indicates Low Risk Score (25-44 pts). Fall prevention measures have been instituted. Side Rails Up X 2 Placed close to Nursing Station Frequent Obs/Assesments occuring Family Present and informed to notify staff if they need to leave bedside As available Patient and Family Educated on Fall Prevention Program and strategies. Assessment: 03:45 General: see triage assessment.. jb4 04:25 Reassessment: Pt refused BGL check. jb4 04:46 Reassessment: Patient appears in no apparent distress at this time. Patient and/or jb4 family updated on plan of care and expected duration. Pain level reassessed. Patient is alert, oriented x 3, equal unlabored respirations, skin warm/dry/pink. 05:51 Reassessment: Patient appears in no apparent distress at this time. Patient and/or jb4 family updated on plan of care and expected duration. Pain level reassessed. Patient is alert, oriented x 3, equal unlabored respirations, skin warm/dry/pink. Pt refused further b/p's. 07:00 Reassessment: Patient appears in no apparent distress at this time. Patient and/or jb4 family updated on plan of care and expected duration. Pain level reassessed. Patient is alert, oriented x 3, equal unlabored respirations, skin warm/dry/pink. PT refused vital signs. Vital Signs: 03:45 BP 158 / 53; Pulse 77; Resp 16; Temp 98.8(O); Pulse Ox 99% on R/A; Weight 107.95 kg jb4 (R); Height 4 ft. 11 in. (149.86 cm) (R); Pain 9/10; 04:30 BP 143 / 47; Pulse 72; Resp 16; Pulse Ox 98% on R/A; jb4 05:00 BP 111 / 79; Pulse 76; Resp 16; Pulse Ox 98% on R/A; jb4 03:45 Body Mass Index 48.07 (107.95 kg, 149.86 cm) 4 ED Course: 03:45 Arm band placed on right wrist. jb4 03:45 Patient has correct armband on for positive identification. Bed in low position. Call jb4 light in reach. Side rails up X2. Pulse ox on. NIBP on. 03:56 Patient arrived in ED. jb4 03:57 Triage completed. jb4 04:02 Leoncio Davey, RN is Primary Nurse. jb4 04:07 Neo Evans MD is Attending Physician. tw4 04:45 X-ray completed. Portable x-ray completed in exam room. Patient tolerated procedure kw poorly. 04:55 Forearm Right XRAY In Process Unspecified. EDMS 04:55 Hand Right 2 View In Process Unspecified. EDMS 06:31 CT C Spine In Process Unspecified. EDMS 06:31 CT Lumbar Spine Wo Con In Process Unspecified. EDMS 07:10 No provider procedures requiring assistance completed. Patient did not have IV access tw2 during this emergency room visit. Administered Medications: 05:45 Drug: Tylenol 1000 mg Route: PO; jb4 06:15 Follow up: Response: No adverse reaction; Pain is decreased jb4 Outcome: 06:58 Discharge ordered by . tw4 07:10 Discharged to home via wheelchair, with family. tw2 07:10 Condition: stable 07:10 Discharge instructions given to patient, significant other, Instructed on discharge instructions, follow up and referral plans. Demonstrated understanding of instructions, follow-up care. 07:11 Patient left the ED. tw2 Signatures: Dispatcher [employer] EDMS Elizabeth Weinstein Tara, RN RN tw2 Leoncio Davey RN RN jb4 Neo Evans MD MD tw4 Corrections: (The following items were deleted from the chart) 05:10 05:00 BP 117 / 9; Pulse 76bpm; Resp 16bpm; Pulse Ox 98% RA; jb4 jb4 07:08 07:00 Reassessment: Patient appears in no apparent distress at this time. Patient jb4 and/or family updated on plan of care and expected duration. Pain level reassessed. Patient is alert, oriented x 3, equal unlabored respirations, skin warm/dry/pink. jb4
[2019-02-02 07:15] VITALS: O2SAT 98
[2019-02-02 07:17] VITALS: BP 111/79
--- NOTE | 2019-02-02 07:28 | RAD REPORT ---
EXAM DESCRIPTION: CT - C Spine Wo Con - 02/02/2019 6:25 am CLINICAL HISTORY: Fall, neck pain COMPARISON: None. TECHNIQUE: Axial 2 mm thick images of the cervical spine were obtained with sagittal and coronal rec onstruction images generated and reviewed. All CT scans are performed using dose optimization technique as appropriate and may include automated exposure control or mA/KV adjustment according to patient size. FINDINGS: Cervical body height and alignment are normal. No disk space narrowing. No fracture change s. No pathologic bone process. Patient has very large anterior spurring at C3-4. There is bridging os sification across the anterior cervical spine from C3-C7. Facet joint degenerative changes are presen t. Mild foraminal encroachment on the right at C3-4 with right greater than left foraminal encroachme nt at C4-5. Left C5-6 foraminal encroachment changes are present. Bilateral foraminal encroachment at C6-7. No paraspinal mass or hematoma. Central canal detail is inherently limited on CT imaging. IMPRESSION: No fracture or acute cervical spine finding identifiable. Extensive degenerative change present with bridging ossification along the anterior cervical spine sp anning C3-C7. Multilevel foraminal encroachment from uncovertebral joint hypertrophy.
--- NOTE | 2019-02-02 09:54 | RAD REPORT ---
EXAM DESCRIPTION: CT - Spine Lumbar Wo Con - 02/02/2019 7:13 am CLINICAL HISTORY: 74 years Female PAIN COMPARISON: None TECHNIQUE: Multiplanar imaging through the lumbar spine without contrast. This exam was performed according to our departmental dose-optimization program, which includes automated exposure control, a djustment of the mA and/or kV according to patient size and/or use of iterative reconstruction techni que. FINDINGS: Diffuse atherosclerotic vascular calcifications. Multilevel facet arthrosis. Mild posterior disc bulging seen at L4/5 with ligamentum flavum infolding and facet arthrosis causing moderate central canal narrowing and mild to moderate bilateral neurofor aminal narrowing. Minimal posterior disc bulging seen at L2/3 and L3/4. No fracture subluxation. Soft tissues within normal limits. IMPRESSION: No acute spine abnormality. No fracture or subluxation. Mild multilevel degenerative augusta nges, more pronounced at L4/5 causing moderate central canal narrowing. Electronically signed by: Cyrus Dunne MD 02/02/2019 6:35 AM CDT Due to temporary technical issues with the PACS/Fluency reporting system, reports are being signed by the in house radiologist as a courtesy to ensure prompt reporting. The interpreting radiologist is f ully responsible for the content of the report.
== END 2019-02-02 07:11 | disposition home or self-care (01) ==
LOC: ER 03:48
DX: S60.221A Contusion of right hand, initial encounter (principal); S60.211A Contusion of right wrist, initial encounter; S13.4XXA Sprain of ligaments of cervical spine, initial encounter; W19.XXXA Unspecified fall, initial encounter; Y93.89 Activity, other specified; Y92.9 Unspecified place or not applicable; Z79.4 Long term (current) use of insulin; Z88.0 Allergy status to penicillin; Z88.3 Allergy status to other anti-infective agents; Z88.5 Allergy status to narcotic agent; Z88.6 Allergy status to analgesic agent; Z88.8 Allergy status to other drugs, medicaments and biological substances; I10 Essential (primary) hypertension; E11.9 Type 2 diabetes mellitus without complications; E78.00 Pure hypercholesterolemia, unspecified; F32.9 Major depressive disorder, single episode, unspecified; I50.9 Heart failure, unspecified; I25.2 Old myocardial infarction
CPT/HCPCS: 72125; 72131; 99284

== ENCOUNTER 2019-02-05 00:03 | Emergency (ER) | payer OTHER ==
--- OUTSIDE RECORDS SUMMARY | 2019-02-05 00:06 | XMS REPORT | Clinical Summary ---
:1945 Author Organization [facility] Address [address] [place] [address] Care Team Providers Name Role Phone Manfred [...] Not on file Results Not on fileafter 02/04/2018 Insurance Payer Benefit Plan / Subscriber ID Type Phone Address Group [employer] - MEDICARE AETNA MEDICARE HMO xxxxxxxx [phone] [address] [place] [address] Advance Directives For more information, please contact:[address] [phone] Code Status Date Activated Date Inactivated Comments Full Code 02/13/2014 10:17 AM 02/13/2014 6:26 PM This code status was determined by: Patient
--- OUTSIDE RECORDS SUMMARY | 2019-02-05 00:06 | XMS REPORT ---
:1945 Author Organization [facility] Address [address] [place] [address] Dr. Tillman [address] [place] [id number] Care Team Providers Name Role Phone RUMA SANTANA Unavailable Unavailable Problems This patient has no known problems. Allergies, Adverse Reactions, Alerts This patient has no known allergies or adverse reactions. Medications This patient has no known medications. Encounters Start End Encounter Admission Attending Care Care Encounter Date/Time Date/Time Type Type Clinicians Facility Department ID 2018-12-24 Inpatient U [facility] [id number] 18:32:00 2018-08-16 Inpatient E [facility] [id number] 23:35:00 2018-11-29 2018-11-29 Emergency E [facility] [id number] 07:33:00 07:33:00 2018-09-21 2018-09-21 Outpatient U [facility] [id number] 18:06:00 18:06:00 2018-09-12 2018-09-10 Inpatient U [facility] [id number] 15:01:00 00:20:00 2018-09-09 2018-09-08 Inpatient [facility] [id number] 11:57:00 09:51:00 Results Test Description Test Time Test Comments Text Results Atomic Results Result Comments TISSUE EXAM 2017-02-26 15:21:00 Surgical Pathology Report Case: [id number] Authorizing Provider: Ruma Santana MD Collected: 02/24/2017 1559 Ordering Location: [facility] Received: 02/25/2017 0810 Pathologist: Kenji [...] SERRATED POLYP/ADENOMA Signing Pathologist Direct Phone Line: [phone] signed by Kenji Hercules MD on 02/26/2017 at 3:21 [id number] x 3Diarrhea, rule out microscopic colitisA. Right/ascending [...] (BEAKER) (test 144 mg/dL 70-110 TESTED AT [facility] [address] [place] [address] [id number]) [facility] [id number] POCT-GLUCOSE [id number] 14:21:00 Test Item Value Reference Range Comments POC-GLUCOSE METER (BEAKER) 118 mg/dL 70-110 TESTED AT [address] (test [id number]) [facility] [id number]
[2019-02-05] MEDS ORDERED: FENTANYL CITR 100 MCG/2 ML ONE (02:22)
[2019-02-05 02:25] LABS: Protime INR 0.96
[2019-02-05 02:27] LABS: Absolute Lymphocytes (CBC) 1.4 K/uL (0.7-4.9); Basophils % 2.2 % (0-1.3); Hematocrit 40.5 % (36.0-45.0); Lymphocytes % 7.4 % (15.3-44.8); RBC Red Blood Cell Count 3.99 M/uL (3.86-4.86)
--- NOTE | 2019-02-05 02:48 | ER ---
Nurse's Notes [facility] Name: Franci Lange Age: 74 yrs Sex: Female : 1945 Arrival Date: 02/05/2019 Time: 00:05 Bed 4 Private MD: Manfred Pearson R Diagnosis: Other slipping, tripping and stumbling and falls;Weakness;Myasthenia gravis without (acute) exacerbation Presentation: 02/05 00:05 Presenting complaint: Patient states: that she was attempting to walk and get her medicine and fell. She is having pain to right arm (from forearm down to finger tips). Denies any LOC or any other pain. Does have skin tear to right forearm. Transition of care: patient was not received from another setting of care. Onset of symptoms was February 04, 2019 at 23:30. Risk Assessment: Do you want to hurt yourself or someone else? Patient reports no desire to harm self or others. Initial Sepsis Screen: Does the patient meet any 2 criteria? No. Patient's initial sepsis screen is negative. Does the patient have a suspected source of infection? No. Patient's initial sepsis screen is negative. Care prior to arrival: Bleeding of injury controlled. 00:05 Method Of Arrival: EMS: [facility] fc 00:05 Acuity: JAY 3 fc 03:48 Note contact for Franci Lange is Crispin Philipnatalia [phone]. bb Triage Assessment: 00:05 General: Appears uncomfortable, obese, Behavior is cooperative, appropriate for age, fc anxious. Pain: Complains of pain in dorsal aspect of right forearm, right wrist and right hand Pain currently is 2 out of 10 on a pain scale. at worst was 8 out of 10 on a pain scale. Quality of pain is described as aching, throbbing, Pain began 30 min ago. Is continuous, Aggravated by increased activity, repositioning. EENT: No deficits noted. Neuro: Level of Consciousness is awake, alert, obeys commands, Oriented to person, place, time, situation, Appropriate for age. Cardiovascular: No deficits noted. Respiratory: Airway is patent Respiratory effort is even, unlabored, Respiratory pattern is regular, symmetrical, Breath sounds are clear bilaterally. GI: No deficits noted. : No deficits noted. Derm: Skin is pink, warm \\T\\ dry. Musculoskeletal: Circulation, motion, and sensation intact. Capillary refill < 3 seconds, Range of motion: intact in right elbow and right wrist Reports pain in neck. Injury Description: Skin tear to right forearm. Historical: - Allergies: 01:00 CEPHALOSPORINS; 01:00 Ciprofloxacin; 01:00 cefepime; 01:00 PENICILLINS; 01:00 Aspirin; 01:00 Phenobarbital; 01:00 Cortizone-10; fc - Home Meds: 01:00 prednisone 30 mg Oral tab 1 tab once daily [Active]; pyridostigmine bromide 60 mg Oral fc tab 1 tab 3 times per day [Active]; sertraline 25 mg Oral tab 1 tab once daily [Active]; rosuvastatin 20 mg Oral tab 1 tab once daily [Active]; ramipril 10 mg Oral cap 1 cap once daily [Active]; amlodipine 10 mg tab 1 tab once daily [Active]; levothyroxine 88 mcg tab 1 tab nightly [Active]; Levemir 100 unit/mL subcutaneous soln 36 unit twice a day [Active]; Trulicity 1.5 mg/0.5 mL subcutaneous pnij 0.5 mL once wkly [Active]; furosemide 40 mg Oral tab 1 tab 2 times per day [Active]; potassium chloride 20 mEq Oral TbER 1 tab 2 times per day [Active]; Fosamax 70 mg Oral tab 1 tab once wkly [Active]; - PMHx: 01:00 CHF; Diabetes - IDDM; High Cholesterol; Hypothyroidism; Myasthenia Gravis; Myocardial fc infarction; Osteoporosis; Hypertension; Depression; - Immunization history:: Last tetanus immunization: unknown. - Social history:: Smoking status: Patient/guardian denies using tobacco, Patient uses alcohol, occasionally. - Ebola Screening: : Patient negative for fever greater than or equal to 101.5 degrees Fahrenheit, and additional compatible Ebola Virus Disease symptoms Patient denies exposure to infectious person Patient denies travel to an Ebola-affected area in the 21 days before illness onset. Screenin:20 Abuse screen: Denies threats or abuse. Nutritional screening: No deficits noted. Tuberculosis screening: No symptoms or risk factors identified. Fall Risk Fall in past 12 months (25 points). Secondary diagnosis (15 points) impaired mobility, No IV (0 pts). Ambulatory Aid- Crutches/Cane/Walker (15 pts). Gait- Impaired (20 pts.). Mental Status- Overestimates/Forgets Limitations (15 pts.). Total Badillo Fall Scale indicates High Risk Score (45 or more points). Fall prevention measures have been instituted. Side Rails Up X 2 Placed Close to Nursing Station Frequent Obs/Assessments Occuring Family Present and informed to notify staff if the need to leave the bedside As available patient and family educated on Fall Prevention Program and Strategies. Assessment: 00:20 Reassessment: No changes from previously documented assessment. Patient and/or family fc updated on plan of care and expected duration. Pain level reassessed. Patient is alert, oriented x 3, equal unlabored respirations, skin warm/dry/pink. see triage assessment. 00:54 Reassessment: No changes from previously documented assessment. Patient and/or family fc updated on plan of care and expected duration. Pain level reassessed. Patient is alert, oriented x 3, equal unlabored respirations, skin warm/dry/pink. Pt awaiting CT Scan. 01:24 Reassessment: Chest xray done in room. Pt with increasing pain. Unable to obtain PIV fc but pt has agreed to midline. 01:38 Reassessment: Pt is in radiology for CT Scan. fc 02:30 Reassessment: No changes from previously documented assessment. Patient and/or family fc updated on plan of care and expected duration. Pain level reassessed. Pt resting quietly at this time. 03:13 Reassessment: Pt and updated on pts transfer and explained that we are fc currently attempting to find EMS for transfer. 03:50 Reassessment: Pt given insulin as ordered. fc 04:36 Reassessment: No changes from previously documented assessment. Patient and/or family fc updated on plan of care and expected duration. Pain level reassessed. Patient is alert, oriented x 3, equal unlabored respirations, skin warm/dry/pink. Pt's IV intact and flushes well. BS taken. Pt also refused left ankle xray. She states that she is not having any pain to left ankle at this time. 05:20 Reassessment: No changes from previously documented assessment. Patient and/or family ak1 updated on plan of care and expected duration. Pain level reassessed. Patient is alert, oriented x 3, equal unlabored respirations, skin warm/dry/pink. pt appears to be resting comfortably waiting for transport to [facility]/Tele bed. 06:01 Reassessment: Patient appears in no apparent distress at this time. pt resting ak1 comfortably. pt refuses to leave monitoring equipment on, stated "it was painful". 07:10 Reassessment: Patient appears in no apparent distress at this time. Patient and/or ph family updated on plan of care and expected duration. Pain level reassessed. Patient is alert, oriented x 3, equal unlabored respirations, skin warm/dry/pink. [facility] at bedside, report given to Bertin EMT-P, pt assisted to bedside commode to urinate before transport. Vital Signs: 00:05 BP 111 / 40; Pulse 70; Resp 18; Temp 97.8(O); Pulse Ox 97% on R/A; Weight 90.72 kg (R); fc Height 4 ft. 11 in. (149.86 cm) (R); Pain 2/10; 00:55 BP 125 / 31; Pulse 69; Resp 18; Pulse Ox 96% on R/A; Pain 2/10; fc 01:25 BP 131 / 44; Pulse 67; Resp 18; Pulse Ox 95% on R/A; fc 02:02 BP 131 / 46; Pulse 65; Resp 18; Pulse Ox 95% on R/A; Pain 2/10; fc 03:00 BP 124 / 75; Pulse 70; Resp 20; Pulse Ox 96% on R/A; Pain 1/10; fc 03:50 BP 129 / 57; Pulse 68; Resp 20; Pulse Ox 97% on R/A; Pain 1/10; fc 04:35 BP 106 / 48; Pulse 80; Resp 20; Pulse Ox 98% on R/A; Pain 1/10; fc 06:00 BP 115 / 44; Pulse 79; Resp 16; Temp 97.9(TE); Pulse Ox 97% on R/A; ak1 07:00 BP 121 / 50; Pulse 76; Resp 18; Temp 97.6; Pulse Ox 97% on R/A; ph 00:05 Body Mass Index 40.39 (90.72 kg, 149.86 cm) ED Course: 00:05 Patient arrived in ED. ds1 00:05 Arm band placed on Patient placed in an exam room, on a stretcher. fc 00:20 Patient has correct armband on for positive identification. Bed in low position. Call light in reach. Side rails up X2. athletic monitor on. Pulse ox on. NIBP on. 00:20 No provider procedures requiring assistance completed. fc 00:25 Triage completed. fc 00:27 Luther Landers PA is PHCP. cp 00:27 Everett Myers MD is Attending Physician. cp 01:11 XRAY Wrist RIGHT 3 view In Process Unspecified. EDMS 01:12 XRAY Chest (1 view) In Process Unspecified. EDMS 01:18 Missed attempt(s): 22 gauge in left antecubital area. Bleeding controlled, band aid fc applied, catheter tip intact. 01:55 Inserted 18 gauge 10 cm midline to left upper basilic vein on first attempt . Line with good blood return and flushes well. 01:55 Initial lab(s) drawn, by me, sent to lab. fc 02:14 CT Head C Spine In Process Unspecified. EDMS 02:31 Manfred Pearson MD is Private Physician. ds1 04:31 Foot Right 3 View XRAY In Process Unspecified. EDMS 06:01 Patient transferred, IV remains in place. ak1 07:30 Alanis Almonte, RENAY is Primary Nurse. ph Administered Medications: 02:25 Drug: fentaNYL (PF) 25 mcg Route: IVP; Site: left upper arm; 03:14 Follow up: Response: No adverse reaction; Pain is decreased 03:47 Drug: Insulin Regular Human 5 units {Co-Signature: ak1 (Veronique Lopes RN).} Route: IVP; Site: left upper arm; 04:37 Follow up: Response: No adverse reaction; Blood sugar is lowered Point of Care Testing: Blood Glucose: 04:35 Blood Glucose: 258 mg/dL; Ranges: Outcome: 02:48 ER care complete, transfer ordered by . cp 05:21 Condition: stable ak1 05:21 Instructed on the need for admit. 06:01 Transferred by ground EMS to [facility], Transfer form completed. X-rays sent ak1 w/ patient. Note: report called to Balta NIÑO 07:33 Patient left the ED. ph Signatures: Dispatcher [employer] EDCT Breana Ivy RN RN Ana Rey ds1 Tessie Shaffer RN RN bb Veronique Lopes RN RN ak1 Alanis Almonte RN RN ph Page, Corey, PA PA cp Veronique Lopes RN ak1 Corrections: (The following items were deleted from the chart) 00:32 00:05 Musculoskeletal: Circulation, motion, and sensation intact. Capillary refill < 3 fc seconds, Range of motion: intact in right elbow and right wrist Reports pain in dorsal aspect of right forearm, right wrist and right hand fc 00:54 00:05 Acuity: JAY 2 fc fc
--- NOTE | 2019-02-05 02:49 | EDPHYS ---
Physician Documentation [facility] Name: Franci Lange Age: 74 yrs Sex: Female : 1945 Arrival Date: 02/05/2019 Time: 00:05 Bed 4 Private MD: Manfred Pearson R ED Physician Evreett Myers HPI: 02/05 00:40 This 74 yrs old Female presents to ER via EMS with complaints of Fall. cp 00:40 Details of fall: The patient fell from an upright position, while walking. Onset: The cp symptoms/episode began/occurred just prior to arrival. 00:40 Associated injuries: The patient sustained neck injury, pain, tenderness, right wrist, cp abrasion, painful injury, swelling. reports patient has history of myasthenia gravis and fell tonight and was unable to get up from ground. Patient has missed last Ig infusion due to nurse unable to obtain IV access. Historical: - Allergies: 01:00 CEPHALOSPORINS; fc 01:00 Ciprofloxacin; fc 01:00 cefepime; fc 01:00 PENICILLINS; fc 01:00 Aspirin; fc 01:00 Phenobarbital; fc 01:00 Cortizone-10; fc - Home Meds: 01:00 prednisone 30 mg Oral tab 1 tab once daily [Active]; pyridostigmine bromide 60 mg Oral fc tab 1 tab 3 times per day [Active]; sertraline 25 mg Oral tab 1 tab once daily [Active]; rosuvastatin 20 mg Oral tab 1 tab once daily [Active]; ramipril 10 mg Oral cap 1 cap once daily [Active]; amlodipine 10 mg tab 1 tab once daily [Active]; levothyroxine 88 mcg tab 1 tab nightly [Active]; Levemir 100 unit/mL subcutaneous soln 36 unit twice a day [Active]; Trulicity 1.5 mg/0.5 mL subcutaneous pnij 0.5 mL once wkly [Active]; furosemide 40 mg Oral tab 1 tab 2 times per day [Active]; potassium chloride 20 mEq Oral TbER 1 tab 2 times per day [Active]; Fosamax 70 mg Oral tab 1 tab once wkly [Active]; - PMHx: 01:00 CHF; Diabetes - IDDM; High Cholesterol; Hypothyroidism; Myasthenia Gravis; Myocardial fc infarction; Osteoporosis; Hypertension; Depression; - Immunization history:: Last tetanus immunization: unknown. - Social history:: Smoking status: Patient/guardian denies using tobacco, Patient uses alcohol, occasionally. - Ebola Screening: : Patient negative for fever greater than or equal to 101.5 degrees Fahrenheit, and additional compatible Ebola Virus Disease symptoms Patient denies exposure to infectious person Patient denies travel to an Ebola-affected area in the 21 days before illness onset. ROS: 00:45 Constitutional: Negative for body aches, chills, fever, poor PO intake. cp 00:45 Eyes: Negative for injury, pain, redness, and discharge. cp 00:45 ENT: Negative for drainage from ear(s), ear pain, sore throat, difficulty swallowing, difficulty handling secretions. 00:45 Neck: Positive for pain with movement, pain at rest, tenderness. 00:45 Cardiovascular: Negative for chest pain, palpitations. 00:45 Respiratory: Negative for cough, shortness of breath, wheezing. 00:45 Abdomen/GI: Negative for abdominal pain, nausea, vomiting, and diarrhea, black/tarry stool, rectal bleeding. 00:45 Back: Negative for pain at rest, pain with movement. 00:45 MS/extremity: Positive for pain, swelling, tenderness, of the right wrist, Negative for deformity. 00:45 Skin: Positive for abrasion(s), of the right wrist. 00:45 Neuro: Positive for general weakness, Negative for altered mental status, headache, loss of consciousness, syncope. 00:45 All other systems are negative. Exam: 00:50 Constitutional: The patient appears in no acute distress, alert, awake, cp non-diaphoretic, non-toxic, well developed, well nourished, obese. 00:50 Head/Face: Normocephalic, atraumatic. cp 00:50 Eyes: Periorbital structures: appear normal, Pupils: equal, round, and reactive to light and accomodation, Extraocular movements: intact throughout, Lids and lashes: appear normal, bilaterally. 00:50 ENT: External ear(s): are unremarkable, Ear canal(s): are normal, clear, TM's: dullness, bilaterally, Nose: is normal, Mouth: Lips: dry, Oral mucosa: moist, Posterior pharynx: Airway: no evidence of obstruction, patent. 00:50 Neck: ROM/movement: pain, that is moderate, with any movement, nuchal rigidity, is not appreciated. 00:50 Chest/axilla: Inspection: normal, Palpation: is normal, no crepitus, no tenderness. 00:50 Cardiovascular: Rate: normal, Rhythm: regular, Edema: is not appreciated, JVD: is not appreciated. 00:50 Respiratory: the patient does not display signs of respiratory distress, Respirations: normal, no use of accessory muscles, no retractions, no splinting, no tachypnea, labored breathing, is not present, Breath sounds: are clear throughout, no decreased breath sounds, no stridor, no wheezing. 00:50 Abdomen/GI: Inspection: abdomen appears normal, Bowel sounds: active, all quadrants, Palpation: abdomen is soft and non-tender, in all quadrants, voluntary guarding, is not appreciated, involuntary guarding, is not appreciated. 00:50 Back: pain, is absent, ROM is normal. 00:50 Musculoskeletal/extremity: Extremities: grossly normal except: noted in the right wrist: abrasion, swelling, tenderness, There is no evidence of decreased ROM, deformity. 00:50 Neuro: Orientation: to person, place \T\ time. Mentation: no acute changes, Motor: moves all fours, general weakness w/o focal deficits, Sensation: no obvious gross deficits, Gait: unable to assess, patient unable to lift legs. 01:20 ECG was reviewed by the Attending Physician. 03:01 ECG was reviewed by the Attending Physician. Vital Signs: 00:05 BP 111 / 40; Pulse 70; Resp 18; Temp 97.8(O); Pulse Ox 97% on R/A; Weight 90.72 kg (R); fc Height 4 ft. 11 in. (149.86 cm) (R); Pain 2/10; 00:55 BP 125 / 31; Pulse 69; Resp 18; Pulse Ox 96% on R/A; Pain 2/10; fc 01:25 BP 131 / 44; Pulse 67; Resp 18; Pulse Ox 95% on R/A; fc 02:02 BP 131 / 46; Pulse 65; Resp 18; Pulse Ox 95% on R/A; Pain 2/10; fc 03:00 BP 124 / 75; Pulse 70; Resp 20; Pulse Ox 96% on R/A; Pain 1/10; fc 03:50 BP 129 / 57; Pulse 68; Resp 20; Pulse Ox 97% on R/A; Pain 1/10; fc 04:35 BP 106 / 48; Pulse 80; Resp 20; Pulse Ox 98% on R/A; Pain 1/10; fc 06:00 BP 115 / 44; Pulse 79; Resp 16; Temp 97.9(TE); Pulse Ox 97% on R/A; ak1 07:00 BP 121 / 50; Pulse 76; Resp 18; Temp 97.6; Pulse Ox 97% on R/A; ph 00:05 Body Mass Index 40.39 (90.72 kg, 149.86 cm) fc MDM: 00:33 Patient medically screened. cp 02:35 Physician consultation: DR Macedo, neurologist \T\[facility], cp will accept patient as transfer if head and neck CT negative for acute trauma. 03:00 Data reviewed: vital signs, nurses notes, radiologic studies, CT scan, I have discussed cp the patient's presentation/case with the attending Emergency Department Physician;. 02/05 00:59 Order name: Basic Metabolic Panel; Complete Time: 03:27 cp 02/05 00:59 Order name: CBC with Diff; Complete Time: 03:27 cp 02/05 00:59 Order name: LFT's; Complete Time: 03:27 cp 02/05 00:59 Order name: Magnesium; Complete Time: 03:27 cp 02/05 00:59 Order name: NT PRO-BNP; Complete Time: 03:27 cp 02/05 00:59 Order name: PT-INR; Complete Time: 03:08 cp 02/05 00:34 Order name: CT Head C Spine cp 02/05 00:34 Order name: XRAY Wrist RIGHT 3 view cp 02/05 00:59 Order name: Troponin (emerg Dept Use Only); Complete Time: 03:27 cp 02/05 00:59 Order name: XRAY Chest (1 view) cp 02/05 02:31 Order name: Manual Differential; Complete Time: 03:27 EDMS 02/05 03:58 Order name: Foot Right 3 View XRAY gs 02/05 04:38 Order name: Glucose, Ancillary Testing EDMS 02/05 00:56 Order name: C-Collar; Complete Time: 02:32 cp 02/05 00:59 Order name: Cardiac monitoring; Complete Time: 02:10 cp 09/ 00:59 Order name: EKG - Nurse/Tech; Complete Time: 02:31 cp 02/05 00:59 Order name: IV Saline Lock; Complete Time: 02:31 cp 02/05 00:59 Order name: Labs collected and sent; Complete Time: 02:32 cp 02/05 00:59 Order name: O2 Per Protocol; Complete Time: 02:32 cp 02/05 00:59 Order name: O2 Sat Monitoring; Complete Time: 02:32 cp 02/05 02:17 Order name: Wound dressing; Complete Time: 02:30 cp EC:20 Rate is 76 beats/min. Rhythm is regular. CT interval is normal. QRS interval is cp prolonged at 102 msec. QT interval is normal. Interpreted by me. Reviewed by me. 03:01 Rate is 68 beats/min. Rhythm is regular. CT interval is normal. QRS interval is cp prolonged at 100 msec. QT interval is normal. Interpreted by me. Reviewed by me. Administered Medications: 02:25 Drug: fentaNYL (PF) 25 mcg Route: IVP; Site: left upper arm; 03:14 Follow up: Response: No adverse reaction; Pain is decreased 03:47 Drug: Insulin Regular Human 5 units {Co-Signature: ak1 (Veronique Lopes RN).} Route: IVP; Site: left upper arm; 04:37 Follow up: Response: No adverse reaction; Blood sugar is lowered Point of Care Testing: Blood Glucose: 04:35 Blood Glucose: 258 mg/dL; Ranges: Critical Glucose Levels:Adult <50 mg/dl or >400 mg/dl <40 mg/dl or >180 mg/dl Disposition: 02/05/19 02:48 Transfer ordered to [facility]. Diagnosis are Other slipping, tripping and stumbling and falls, Weakness, Myasthenia gravis without (acute) exacerbation. - Reason for transfer: Higher level of care. - Accepting physician is DR Macedo. - Condition is Stable. - Problem is an ongoing problem. - Symptoms have improved. Signatures: Dispatcher [employer] Breana Joaquin RN RN Alanis Almonte RN RN Luther Landers, ADRIAN PA cp Myers, EverettMD MD edin RN ak1 Corrections: (The following items were deleted from the chart) 05:50 04:00 Ankle Left 3 View+RAD.RAD.BRZ ordered. [facility] EDMS 07:33 02:48 02/05/2019 02:48 Transfer ordered to [facility]. ph Diagnosis is Other slipping, tripping and stumbling and falls; Weakness; Myasthenia gravis without (acute) exacerbation. Reason for transfer: Higher level of care. Accepting physician is DR Macedo. Condition is Stable. Problem is an ongoing problem. Symptoms have improved. cp
[2019-02-05 03:08] LABS: Albumin 2.7 g/dL (3.4-5.0); Bilirubin Direct 0.7 mg/dL (0-0.2); Bilirubin Total 0.8 mg/dL (0.2-1.0); Magnesium 2.1 mg/dL (1.8-2.4); Potassium 4.3 mmol/L (3.5-5.1); Protein, Total 6.7 g/dL (6.4-8.2); Troponin (Emerg Dept Use Only) 0.03 ng/mL (0.0-0.045)
[2019-02-05 03:19] LABS: Blood Morphology Comment NOTED (NOT SEEN); Burr Cells 1+; Platelet Estimate ADEQ
[2019-02-05] MEDS ORDERED: INSULIN -REGULAR HUMAN 50 UNIT/0.5 ML ML ONE (03:37)
[2019-02-05 07:54] VITALS: O2SAT 97
[2019-02-05 07:55] VITALS: BP 121/50; TEMP 97.6
--- NOTE | 2019-02-05 10:25 | RAD REPORT ---
EXAM DESCRIPTION: RAD - Wrist Right 3 View - 02/05/2019 1:10 am CLINICAL HISTORY: Fall, right wrist pain COMPARISON: None. FINDINGS: No fracture is identified. There is no dislocation or periosteal reaction noted. Significa nt degenerative changes are present at the trapezial first metacarpal articulation. There is partial subluxation of the first metacarpal. Radiocarpal joint space is narrowed. No foreign body. IMPRESSION: Right wrist degenerative changes are present as detailed. No fracture identified.
--- NOTE | 2019-02-05 10:26 | RAD REPORT ---
EXAM DESCRIPTION: RAD - Chest Single View - 02/05/2019 1:26 am CLINICAL HISTORY: Fall, chest pain COMPARISON: January 23 TECHNIQUE: AP portable chest image was obtained 0110 hours . FINDINGS: Lungs are clear. Heart and vasculature are normal. No measurable pleural effusion and no p neumothorax. Bony degenerative changes are present. No acute finding confirmed. No acute aortic findi ng. SPLICING MACHINE OPERATOR AUTOMATIC shunt overlies the left side of the chest. IMPRESSION: No acute cardiopulmonary process. No significant change from comparison.
--- NOTE | 2019-02-05 10:28 | RAD REPORT ---
EXAM DESCRIPTION: RAD - Foot Right 3 View - 02/05/2019 4:31 am CLINICAL HISTORY: Trip and fall, right foot pain COMPARISON: None. FINDINGS: No fracture, dislocation or periosteal reaction. IP joint degenerative changes are present along with first MTP joint degenerative change. Spurring is seen at the IP joints. No erosive change s seen. Patient has a large plantar spur of the large spur at the Achilles attachment. Tarsal metatar richie joint degenerative changes are present as well. Soft tissues appear mildly edematous. No foreign body seen. IMPRESSION: No fracture or acute bone finding identifiable in the right foot.
--- NOTE | 2019-02-07 16:58 | EKG ---
Test Date: 2019-02-05 Test Time: 02:55:47 Lvn: ANÍBAL MEASUREMENT RESULTS: Intervals: Rate: 68 HI: 148 QRSD: 100 QT: 430 QTc: 457 [place]: P: 41 HI: 148 QRS: 41 T: 159 INTERPRETIVE STATEMENTS: Normal sinus rhythm Cannot rule out Inferior infarct, age undetermined Cannot rule out Anterior infarct, age undetermined ST & T wave abnormality, consider lateral ischemia Abnormal ECG Compared to ECG 01/23/2019 11:00:14 ST (T wave) deviation now present Possible ischemia now present T-wave abnormality no longer present Myocardial infarct finding still present Electronically Signed On 02-07-19 16:55:37 CDT by Jeet Valles
--- NOTE | 2019-02-08 11:26 | RAD REPORT ---
EXAM DESCRIPTION: CT - CTHCSPWOC - 02/05/2019 3:10 am CLINICAL HISTORY: Fall COMPARISON: None. TECHNIQUE: CT HEAD NECK WITHOUT IV CONTRAST on 02/05/2019 12:34 AM CDT This exam was performed according to our departmental dose-optimization program, which includes autom ated exposure control, adjustment of the mA and/or kV according to patient size and/or use of iterati ve reconstruction technique. FINDINGS: Brain: There is a questionable mass cephalad to the clivus measuring at least 2.7 cm this is partially calcified. There is extensive encephalomalacia involving the right frontal lobe. The cat heter terminates in the anterior aspect of the right lateral ventricle. There is no significant volum e loss for age. Right frontal craniotomy was performed. Left frontal BATT MACHINE OPERATOR shunt is present. Orbits and globes are unrem arkable. The paranasal sinuses are clear. Mastoid air cells are clear. Cervical Spine: There is no acute fracture. Alignment is anatomic. There are large ventral osteophyte s at nearly all levels of the cervical spine. There is mild diffuse facet arthritis. Laminectomy was performed at C2 on C3. Disc spaces are maintained. Vertebral body heights are preserved. Soft tissues are unremarkable. IMPRESSION: No definite posttraumatic findings. Possible mass involving the posterior inferior frontal lobes. Electronically signed by: Freeman Laureano MD 02/05/2019 2:26 AM CDT Due to temporary technical issues with the PACS/Fluency reporting system, reports are being signed by the in house radiologist as a courtesy to ensure prompt reporting. The interpreting radiologist is f ully responsible for the content of the report.
== END 2019-02-05 07:33 | disposition short-term general hospital (02) ==
LOC: ER 00:03
DX: R53.1 Weakness (principal); G70.00 Myasthenia gravis without (acute) exacerbation; W01.0XXA Fall on same level from slipping, tripping and stumbling without subsequent striking against object, initial encounter; Y93.01 Activity, walking, marching and hiking; Y92.9 Unspecified place or not applicable; Z79.4 Long term (current) use of insulin; Z88.0 Allergy status to penicillin; Z88.3 Allergy status to other anti-infective agents; Z88.5 Allergy status to narcotic agent; Z88.6 Allergy status to analgesic agent; Z88.8 Allergy status to other drugs, medicaments and biological substances; I10 Essential (primary) hypertension; E11.9 Type 2 diabetes mellitus without complications; E03.9 Hypothyroidism, unspecified; I50.9 Heart failure, unspecified; E78.00 Pure hypercholesterolemia, unspecified; F32.9 Major depressive disorder, single episode, unspecified
CPT/HCPCS: 93005; 85025; 80048; 36415; 83735; 85610; 82962; 80076; 84484; 83880; 70450; 72125; 71045; 73630; 73110; 96375; 96374; 99285; J3010

== ENCOUNTER 2019-03-07 18:11 | Inpatient (IN) | payer OTHER ==
[2019-03-07 18:55] LABS: Absolute Lymphocytes (CBC) 0.2 K/uL (0.7-4.9); Basophils % 0.3 % (0-1.3); Lymphocytes % 1.8 % (15.3-44.8); RBC Red Blood Cell Count 4.05 M/uL (3.86-4.86)
--- NOTE | 2019-03-07 19:20 | RAD REPORT ---
EXAM DESCRIPTION: CT - Head C Spine Cap Wo Con - 03/07/2019 7:08 pm CLINICAL HISTORY: Trauma, head and neck injury. Chest, abdomen and pelvis pain. PAIN COMPARISON: Head C Spine Mpr Wo Con dated 02/05/2019; C Spine Wo Con dated 02/02/2019; Brain W/Wo Cont d ated 02/12/2017 TECHNIQUE: CT head without contrast. CT cervical spine without contrast with coronal and sagittal reformatted images. CT chest, abdomen and pelvis without contrast with coronal and sagittal reformatted images of the [facility] [place]. All CT scans are performed using dose optimization technique as appropriate and may include automated exposure control or mA/KV adjustment according to patient size. FINDINGS: CT HEAD WITHOUT CONTRAST: Postsurgical changes of a right craniotomy noted. Partially calcified mass is again seen involving th e suprasellar region on the right. Significant right frontal lobe gliosis with ventriculostomy tube i n place. No acute findings such as hemorrhage or midline shift. The paranasal sinuses and mastoids are clear. CT CERVICAL SPINE WITHOUT CONTRAST: No fracture or subluxation. Laminectomy changes are present the upper cervical levels. Bridging anter ior osteophytosis is seen. The prevertebral soft tissues are normal in thickness. CT CHEST, ABDOMEN, PELVIS WITHOUT CONTRAST: NOTE: Lack of contrast is a significant limitation in the assessment of trauma related findings. Spec ifically, solid organ, vascular and bowel evaluation is significantly limited. The lungs are clear.No pneumothorax or pericardial/pleural fluid. No evidence of intra-abdominal visceral injury, free fluid or free air is seen within the above detai led limitations. No concerning pelvic findings. No fractures. IMPRESSION: Negative for acute traumatic findings within the above detailed limitations.
[2019-03-07 19:24] LABS: Albumin 3.3 g/dL (3.4-5.0); Bilirubin Total 0.3 mg/dL (0.2-1.0); Potassium 4.9 mmol/L (3.5-5.1); Protein, Total 6.6 g/dL (6.4-8.2)
--- NOTE | 2019-03-07 19:35 | EDPHYS ---
Physician Documentation [facility] Name: Franci Lange Age: 74 yrs Sex: Female : 1945 Arrival Date: 03/07/2019 Time: 18:16 Bed 13 Private MD: ED Physician Luther Vang HPI: 03/07 18:26 This 74 yrs old Female presents to ER via EMS with complaints of Fall Injury. augusta 18:26 Details of fall: The patient fell from an upright position, while walking. Onset: The augusta symptoms/episode began/occurred just prior to arrival. Associated injuries: The patient sustained injury to the head, neck injury, upper back injury, injury to the low back. Severity of symptoms: At their worst the symptoms were mild, in the emergency department the symptoms are unchanged. The patient has experienced similar episodes in the past, multiple times. Historical: - Allergies: 18:21 Aspirin; bp 18:21 cefepime; bp 18:21 CEPHALOSPORINS; bp 18:21 Ciprofloxacin; bp 18:21 Cortizone-10; bp 18:21 PENICILLINS; bp 18:21 Phenobarbital; bp - PMHx: 18:21 CHF; Depression; Diabetes - IDDM; High Cholesterol; Hypertension; Hypothyroidism; bp Myasthenia Gravis; Myocardial infarction; Osteoporosis; - Immunization history:: Adult Immunizations up to date. - Social history:: Smoking status: Patient/guardian denies using tobacco. - Ebola Screening: : No symptoms or risks identified at this time. ROS: 18:27 Constitutional: Negative for fever, chills, and weight loss, Eyes: Negative for injury, augusta pain, redness, and discharge, ENT: Negative for injury, pain, and discharge, Neck: Negative for injury, pain, and swelling, Cardiovascular: Negative for chest pain, palpitations, and edema, Respiratory: Negative for shortness of breath, cough, wheezing, and pleuritic chest pain, Abdomen/GI: Negative for abdominal pain, nausea, vomiting, diarrhea, and constipation, : Negative for injury, bleeding, discharge, and swelling, MS/Extremity: Negative for injury and deformity, Neuro: Negative for headache, weakness, numbness, tingling, and seizure, Psych: Negative for depression, anxiety, suicide ideation, homicidal ideation, and hallucinations, Allergy/Immunology: Negative for hives, rash, and allergies, Endocrine: Negative for neck swelling, polydipsia, polyuria, polyphagia, and marked weight changes, Hematologic/Lymphatic: Negative for swollen nodes, abnormal bleeding, and unusual bruising. 18:27 Skin: Positive for abrasion(s), of the right arm and left arm. Exam: 18:27 Constitutional: This is a well developed, well nourished patient who is awake, alert, augusta and in no acute distress. Head/Face: Normocephalic, atraumatic. Eyes: Pupils equal round and reactive to light, extra-ocular motions intact. Lids and lashes normal. Conjunctiva and sclera are non-icteric and not injected. Cornea within normal limits. Periorbital areas with no swelling, redness, or edema. ENT: Nares patent. No nasal discharge, no septal abnormalities noted. Tympanic membranes are normal and external auditory canals are clear. Oropharynx with no redness, swelling, or masses, exudates, or evidence of obstruction, uvula midline. Mucous membranes moist. Chest/axilla: Normal chest wall appearance and motion. Nontender with no deformity. No lesions are appreciated. Cardiovascular: Regular rate and rhythm with a normal S1 and S2. No gallops, murmurs, or rubs. Normal PMI, no JVD. No pulse deficits. Respiratory: Lungs have equal breath sounds bilaterally, clear to auscultation and percussion. No rales, rhonchi or wheezes noted. No increased work of breathing, no retractions or nasal flaring. Abdomen/GI: Soft, non-tender, with normal bowel sounds. No distension or tympany. No guarding or rebound. No evidence of tenderness throughout. Female : Normal external genitalia. MS/ Extremity: Pulses equal, no cyanosis. Neurovascular intact. Full, normal range of motion. Neuro: Awake and alert, GCS 15, oriented to person, place, time, and situation. Cranial nerves II-XII grossly intact. Motor strength 5/5 in all extremities. Sensory grossly intact. Cerebellar exam normal. Normal gait. Psych: Awake, alert, with orientation to person, place and time. Behavior, mood, and affect are within normal limits. 18:27 Neck: External neck: no acute changes, Trachea: is midline with no obvious abnormalities, ROM/movement: is normal, no acute changes, pain, limited range of motion, that is mild. Vital Signs: 18:21 BP 160 / 42; Pulse 84; Resp 16; Temp 98; Pulse Ox 98% ; bp 19:45 BP 135 / 94; Pulse 86; Resp 18; Pulse Ox 100% on R/A; aa1 21:00 BP 152 / 83; Pulse 82; Resp 18; Temp 98.1; Pulse Ox 98% on R/A; Pain 0/10; aa1 21:49 BP 152 / 52; Pulse 90; Resp 18; Temp 97.9; Pulse Ox 99% on R/A; Pain 0/10; aa1 MDM: 18:17 Patient medically screened. [facility] 18:31 Data reviewed: vital signs, nurses notes, lab test result(s), radiologic studies, CT augusta scan. 03/07 18:26 Order name: CBC with Diff; Complete Time: 19:29 [facility] 03/07 18:26 Order name: Comprehensive Metabolic Panel; Complete Time: 19:29 [facility] 03/07 18:26 Order name: Urine Culture [facility] 03/07 19:32 Order name: LFT's; Complete Time: 20:57 [facility] 03/07 19:32 Order name: Magnesium; Complete Time: 20:57 [facility] 03/07 19:32 Order name: NT PRO-BNP; Complete Time: 20:57 [facility] 03/07 19:32 Order name: PT-INR [facility] 03/07 19:32 Order name: Troponin (emerg Dept Use Only); Complete Time: 20:57 [facility] 03/07 20:42 Order name: CBC with Automated Diff [facility] 03/07 20:42 Order name: CBC with Automated Diff [facility] 03/07 20:42 Order name: Comprehensive Metabolic Panel [facility] 03/07 20:42 Order name: Comprehensive Metabolic Panel [facility] 03/07 20:42 Order name: Hemoglobin A1c [facility] 03/07 18:26 Order name: CT Traumagram (Head C Spine CAP wo con); Complete Time: 19:29 [facility] 03/07 19:32 Order name: EKG; Complete Time: 19:33 [facility] 03/07 19:32 Order name: Cardiac monitoring; Complete Time: 20:12 [facility] 03/07 19:32 Order name: EKG - Nurse/Tech; Complete Time: 20:12 [facility] 03/07 19:32 Order name: IV Saline Lock; Complete Time: 20:45 [facility] 03/07 19:32 Order name: Labs collected and sent; Complete Time: 20:46 [facility] 03/07 19:32 Order name: O2 Per Protocol; Complete Time: 19:41 [facility] 03/07 19:32 Order name: O2 Sat Monitoring; Complete Time: 19:42 [facility] 03/07 20:42 Order name: CONS Pharmacy Consult EDMT 03/07 20:42 Order name: Consistent Carb (ADA) 1800 [address] EDMS 03/07 20:42 Order name: Hemoglobin A1c EDMT Administered Medications: 19:50 Drug: Insulin Regular Human 10 units {Co-Signature: cc3 (Nevin Cordel).} Route: aa1 Sub-Q; Site: right upper arm; 21:22 Follow up: Response: No adverse reaction; Blood sugar is lowered aa1 20:10 Drug: NS 0.9% 500 ml Route: IV; Rate: bolus; Site: right upper arm; aa1 21:00 Follow up: IV Status: Completed infusion; IV Intake: 500ml aa1 20:10 Drug: NS 0.9% 1000 ml Route: IV; Rate: 125 ml/hr; Site: right upper arm; aa1 21:26 Follow up: IV Status: Infusion continued upon admission aa1 20:10 Drug: Insulin Regular Human 10 units {Co-Signature: cc3 (Nevin Cordel).} Route: IVP; aa1 Site: right upper arm; 21:25 Follow up: Response: No adverse reaction; Blood sugar is lowered aa1 Point of Care Testing: Blood Glucose: 21:10 Blood Glucose: 403 mg/dL; aa1 Ranges: Critical Glucose Levels:Adult <50 mg/dl or >400 mg/dl <40 mg/dl or >180 mg/dl Disposition: 03/07/19 19:35 Hospitalization ordered by Melissa Yi for Inpatient Admission. Preliminary diagnosis are Type 1 diabetes mellitus - uncontrolled, Fall due to bumping against object, Unspecified kidney failure, Hyperglycemia, unspecified, Thrombocytopenia, unspecified. - Bed requested for Telemetry/MedSurg (Inpatient). - Status is Inpatient Admission. aa1 - Condition is Stable. - Problem is new. - Symptoms have improved. UTI on Admission? No Signatures: Dispatcher [employer] EDMS Lexii Pop RN RN aa1 Luther Vang MD MD cha Starr, Gregory, MD MD gs Caitie, Guerrero, RN RN Junior Herrera mw2 Nevin Mccormick cc3 Corrections: (The following items were deleted from the chart) 19:39 19:35 Hospitalization Ordered by Melissa Yi MD for Inpatient Admission. Preliminary augusta diagnosis is Type 1 diabetes mellitus - uncontrolled; Fall due to bumping against object; Unspecified kidney failure; Hyperglycemia, unspecified. Bed requested for Telemetry/MedSurg (Inpatient). Status is Inpatient Admission. Condition is Stable. Problem is new. Symptoms have improved. UTI on Admission? No. augusta 19:57 19:32 BASIC METABOLIC PANEL+C.LAB.BRZ ordered. EDMT EDMS 21:16 19:39 03/07/2019 19:35 Hospitalization Ordered by Melissa Yi MD for Inpatient mw2 Admission. Preliminary diagnosis is Type 1 diabetes mellitus - uncontrolled; Fall due to bumping against object; Unspecified kidney failure; Hyperglycemia, unspecified; Thrombocytopenia, unspecified. Bed requested for Telemetry/MedSurg (Inpatient). Status is Inpatient Admission. Condition is Stable. Problem is new. Symptoms have improved. UTI on Admission? No. augusta 22:16 21:16 03/07/2019 19:35 Hospitalization Ordered by Melissa Yi MD for Inpatient aa1 Admission. Preliminary diagnosis is Type 1 diabetes mellitus - uncontrolled; Fall due to bumping against object; Unspecified kidney failure; Hyperglycemia, unspecified; Thrombocytopenia, unspecified. Bed requested for Telemetry/MedSurg (Inpatient). Status is Inpatient Admission. Condition is Stable. Problem is new. Symptoms have improved. UTI on Admission? No. mw2
--- NOTE | 2019-03-07 19:35 | ER ---
Nurse's Notes [facility] Name: Franci Lange Age: 74 yrs Sex: Female : 1945 Arrival Date: 03/07/2019 Time: 18:16 Bed 13 Private MD: Diagnosis: Type 1 diabetes mellitus-uncontrolled;Fall due to bumping against object;Unspecified kidney failure;Hyperglycemia, unspecified;Thrombocytopenia, unspecified Presentation: 03/07 18:17 Presenting complaint: EMS states: FALL FROM STANDING, MECHANICAL FALL, NO LOC, NO bp OBVIOUS PAIN. Transition of care: patient was received from another setting of care ([facility]), [facility]. Onset of symptoms was March 07, 2019 at 17:30. Risk Assessment: Do you want to hurt yourself or someone else? Patient reports no desire to harm self or others. Initial Sepsis Screen: Does the patient meet any 2 criteria? No. Patient's initial sepsis screen is negative. Does the patient have a suspected source of infection? No. Patient's initial sepsis screen is negative. Care prior to arrival: None. 18:17 Method Of Arrival: EMS: [facility] bp 18:17 Acuity: JAY 4 bp Triage Assessment: 18:25 General: Appears in no apparent distress. uncomfortable, Behavior is appropriate for bp age. Pain: Complains of pain in back. EENT: No deficits noted. Neuro: AT BASELINE. Cardiovascular: No deficits noted. Respiratory: No deficits noted. GI: No signs and/or symptoms were reported involving the gastrointestinal system. : No signs and/or symptoms were reported regarding the genitourinary system. Derm: No deficits noted. Musculoskeletal: No deficits noted. Historical: - Allergies: 18:21 Aspirin; bp 18:21 cefepime; bp 18:21 CEPHALOSPORINS; bp 18:21 Ciprofloxacin; bp 18:21 Cortizone-10; bp 18:21 PENICILLINS; bp 18:21 Phenobarbital; bp - PMHx: 18:21 CHF; Depression; Diabetes - IDDM; High Cholesterol; Hypertension; Hypothyroidism; bp Myasthenia Gravis; Myocardial infarction; Osteoporosis; - Immunization history:: Adult Immunizations up to date. - Social history:: Smoking status: Patient/guardian denies using tobacco. - Ebola Screening: : No symptoms or risks identified at this time. Screenin:27 Abuse screen: Denies threats or abuse. Denies injuries from another. Nutritional bp screening: No deficits noted. Tuberculosis screening: No symptoms or risk factors identified. Fall Risk Fall in past 12 months (25 points). Secondary diagnosis (15 points) impaired mobility, No IV (0 pts). Ambulatory Aid- Crutches/Cane/Walker (15 pts). Gait- Weak (10 pts.). Mental Status- Oriented to own ability (0 pts). Total Badillo Fall Scale indicates High Risk Score (45 or more points). Assessment: 18:31 General: SEE TRIAGE NOTE. bp 19:10 General: Appears in no apparent distress. comfortable, Behavior is calm, cooperative, aa1 appropriate for age. Pain: Denies pain. Neuro: Level of Consciousness is awake, alert, obeys commands, Oriented to person, place, time, situation, Moves all extremities. Speech is normal. Respiratory: Airway is patent Respiratory effort is even, unlabored, Respiratory pattern is regular, symmetrical. GI: No signs and/or symptoms were reported involving the gastrointestinal system. : No signs and/or symptoms were reported regarding the genitourinary system. Derm: Skin has skin tears on BUE with scabs intact Skin is pink, warm \T\ dry. Bruising that is on left hand, right arm and left arm. Musculoskeletal: Circulation, motion, and sensation intact. Capillary refill < 3 seconds, Range of motion: intact in all extremities. 20:00 Reassessment: Patient appears in no apparent distress at this time. Patient and/or aa1 family updated on plan of care and expected duration. Pain level reassessed. Patient is alert, oriented x 3, equal unlabored respirations, skin warm/dry/pink. Awaiting bed assignment. 21:00 Reassessment: Patient appears in no apparent distress at this time. Patient and/or aa1 family updated on plan of care and expected duration. Pain level reassessed. Patient is alert, oriented x 3, equal unlabored respirations, skin warm/dry/pink. Awaiting bed assignment. 21:25 Reassessment: Attempted to call report to floor; nurse will call back shortly. aa1 21:59 Reassessment: Patient appears in no apparent distress at this time. Patient and/or aa1 family updated on plan of care and expected duration. Pain level reassessed. Patient is alert, oriented x 3, equal unlabored respirations, skin warm/dry/pink. Report given to RENAY Giron on 4th floor. Vital Signs: 18:21 BP 160 / 42; Pulse 84; Resp 16; Temp 98; Pulse Ox 98% ; bp 19:45 BP 135 / 94; Pulse 86; Resp 18; Pulse Ox 100% on R/A; aa1 21:00 BP 152 / 83; Pulse 82; Resp 18; Temp 98.1; Pulse Ox 98% on R/A; Pain 0/10; aa1 21:49 BP 152 / 52; Pulse 90; Resp 18; Temp 97.9; Pulse Ox 99% on R/A; Pain 0/10; aa1 ED Course: 18:16 Patient arrived in ED. bp 18:17 Luther Vang MD is Attending Physician. augusta 18:19 Triage completed. bp 18:19 Guerrero Blood, RENAY is Primary Nurse. bp 18:21 Arm band placed on. bp 18:27 Patient has correct armband on for positive identification. Bed in low position. Call bp light in reach. Side rails up X2. Adult w/ patient. 19:09 CT Traumagram (Head C Spine CAP wo con) In Process Unspecified. EDMS 19:34 Melissa Yi MD is Hospitalizing Provider. augusta 20:10 EKG done, by ED staff. jd2 20:10 Inserted saline lock: 24 gauge in right ,using aseptic technique. shoulder. aa1 21:15 No provider procedures requiring assistance completed. Patient admitted, IV remains in aa1 place. Administered Medications: 19:50 Drug: Insulin Regular Human 10 units {Co-Signature: cc3 (Nevin Mccormick).} Route: aa1 Sub-Q; Site: right upper arm; 21:22 Follow up: Response: No adverse reaction; Blood sugar is lowered aa1 20:10 Drug: NS 0.9% 500 ml Route: IV; Rate: bolus; Site: right upper arm; aa1 21:00 Follow up: IV Status: Completed infusion; IV Intake: 500ml aa1 20:10 Drug: NS 0.9% 1000 ml Route: IV; Rate: 125 ml/hr; Site: right upper arm; aa1 21:26 Follow up: IV Status: Infusion continued upon admission aa1 20:10 Drug: Insulin Regular Human 10 units {Co-Signature: cc3 (Nevin Mccormick).} Route: IVP; aa1 Site: right upper arm; 21:25 Follow up: Response: No adverse reaction; Blood sugar is lowered aa1 Point of Care Testing: Blood Glucose: 21:10 Blood Glucose: 403 mg/dL; aa1 Ranges: Intake: 21:00 IV: 500ml; Total: 500ml. aa1 Outcome: 19:35 Decision to Hospitalize by Provider. augusta 22:14 Admitted to Tele accompanied by tech, via wheelchair, room 409, with chart, Report aa1 called to RENAY Giron 22:14 Condition: stable 22:14 Discharge instructions given to patient, significant other, Instructed on the need for admit, Demonstrated understanding of instructions. 22:14 No charge visit due to 22:16 Patient left the ED. aa1 Signatures: Dispatcher [employer] EDLexii Koch RN RN aa1 Luther Vang MD MD cha Donley, Jonika jd2 Peltier, Brian, RENAY RN Nevin Mccormick cc3
[2019-03-07] MEDS ORDERED: NA CHLORIDE 0.9% 500 ML ONE (19:50)
[2019-03-07] MEDS ORDERED: NA CHLORIDE 0.9% 1,000 ML ONE (19:50)
[2019-03-07] MEDS ORDERED: INSULIN -REGULAR HUMAN 50 UNIT/0.5 ML ML ONE (19:50)
[2019-03-07 20:24] LABS: ALT/SGPT 41 U/L (12-78); AST/SGOT 24 U/L (15-37); Albumin 3.3 g/dL (3.4-5.0); Alkaline Phosphatase 194 U/L (45-117); Bilirubin Direct 0.1 mg/dL (0-0.2); Bilirubin Total 0.3 mg/dL (0.2-1.0); Magnesium 1.7 mg/dL (1.8-2.4); NT PRO-BNP 853 pg/mL (<125); Protein, Total 6.5 g/dL (6.4-8.2); Troponin (Emerg Dept Use Only) < 0.02 ng/mL (0.0-0.045)
[2019-03-07] MEDS ORDERED: MORPHINE 2 MG/ML SYR IV PRN (20:38)
[2019-03-07] MEDS ORDERED: ACETAMINOPHEN 500 MG TAB PO PRN (20:38)
[2019-03-07] MEDS ORDERED: ONDANSETRON 4 MG/2 ML VIAL IV PRN (20:38)
[2019-03-07] MEDS: INSULIN -REGULAR HUMAN 50 UNIT/0.5 ML ML SQ SCH (21:00)
[2019-03-07] MEDS: NA CHLORIDE 0.9% 1,000 ML IV SCH (21:00)
[2019-03-07 21:02] LABS: Protime INR 1.01
[2019-03-08] MEDS: QUETIAPINE 25 MG TAB PO SCH ×2 (01:30→21:57)
[2019-03-08 04:29] VITALS: BMI 39.5
[2019-03-08 06:38] LABS: Absolute Lymphocytes (CBC) 2.4 K/uL (0.7-4.9); Basophils % 1.1 % (0-1.3); Hematocrit 34.9 % (36.0-45.0); Lymphocytes % 18.4 % (15.3-44.8); MPV 9.2 fL (7.6-11.3); RBC Red Blood Cell Count 3.64 M/uL (3.86-4.86)
[2019-03-08] MEDS: NA CHLORIDE 0.9% 1,000 ML IV SCH ×2 (07:00→21:00)
[2019-03-08 07:03] LABS: Albumin 2.8 g/dL (3.4-5.0); Bilirubin Total 0.3 mg/dL (0.2-1.0); Potassium 3.4 mmol/L (3.5-5.1); Protein, Total 5.7 g/dL (6.4-8.2)
[2019-03-08] MEDS: INSULIN -REGULAR HUMAN 50 UNIT/0.5 ML ML SQ SCH ×4 (07:30→21:00)
--- NOTE | 2019-03-08 07:57 | P.HP ---
Certification for Inpatient Patient admitted to: Observation With expected LOS: <2 Midnights Patient will require the following post-hospital care: Home Health Services Practitioner: I am a practitioner with admitting privileges, knowledge of patient current condition, hospital course, and medical plan of care. Services: Services provided to patient in accordance with Admission requirements found in Title 42 Section 412.3 of the Code of Federal Regulations Patient History Date of Service: 03/07/19 Reason for admission: ALTERED MENTAL STATUS History of Present Illness: Patient is a 74-year-old female who comes into the hospital with altered mentation. Patient recently moved to an assisted living across the street. Patient has been falling quite frequently. She has multiple bruising with different stages. She was admitted to the hospital and she was found to have a blood sugar of greater than 700. she was given IV fluids and insulin. Her blood sugars have stabilized. Her currently, she also has dressing on the right foot. The wound looks to be clean dry and intact. No active infection. Patient's blood sugars have been labile. We will need to admit her to get better control of her blood sugars. Afterwards, patient should be stable for discharge home. We will also arrange for home health at the time of discharge. Will get physical therapy evaluation to see if patient would qualify. Allergies aspirin Allergy (Verified 01/11/19 01:32) Shortness of breath ciprofloxacin [From Cipro] Allergy (Verified 01/11/19 01:32) Anaphylaxis cortisone Allergy (Verified 01/11/19 01:32) Hives/Rash Penicillins Allergy (Verified 01/11/19 01:32) Hives/Rash phenobarbital Allergy (Verified 01/11/19 01:32) Itching/Hives/Rash Home Medications: Pyridostigmine [place] [Mestinon*] 60 mg PO Q8H 01/11/19 Rosuvastatin [Crestor*] 20 mg PO BEDTIME 01/11/19 predniSONE [Prednisone*] 20 mg PO DAILY #30 tab 01/21/19 Acetaminophen [Tylenol*] 650 mg PO Q6HP PRN 03/08/19 Amlodipine [Norvasc*] 10 mg PO DAILY 03/08/19 Ergocalciferol (Vitamin D2) [Vitamin D2] 50,000 unit PO EVERY 7TH DAY 03/08/19 Famotidine [Pepcid*] 20 mg PO DAILY 03/08/19 Furosemide [Lasix*] 20 mg PO DAILY 03/08/19 Insulin Glargine,Hum.rec.anlog [Lantus Solostar] 15 units SQ DAILY 03/08/19 Linezolid [Zyvox*] 600 mg PO Q12H 03/08/19 Meclizine HCl [Antivert*] 12.5 mg PO TIDP PRN 03/08/19 Melatonin/Pyridoxine HCl (B6) [Melatonin 3 mg Tablet] 6 mg PO BEDTIME PRN Quetiapine Fumarate [Seroquel] 25 mg PO BEDTIME 03/08/19 Sulfamethoxazole/Trimethoprim [Sulfamethoxazole-Tmp Ds Tablet] 2 tab PO Q12H 01/17 hydrOXYzine HCl [Atarax] 25 mg PO Q6HP PRN 03/08/19 predniSONE [Deltasone*] 5 mg PO DAILY 03/08/19 - Past Medical/Surgical History Has patient received pneumonia vaccine in the past: No Diabetic: Yes -: Kidney failure -: Benign neoplasm of cerebral meninges -: HTN -: COPD -: Chronic systolic (congestive)heart failure -: Hypocalcemia -: Pneumonia due to staph -: Severe sepsis w/ septic shock -: resp failure -: spinal stenosis -: myasthenia gravis -: dementia -: Brain surgery x 2 -: section x 3 -: korey -: neck surgery -: carpal tunnel surgery - Family History Mother Medical History: Heart disease Notes: 93y/o , still living Father Medical History: Heart disease Notes: - Social History Smoking Status: Never smoker Alcohol use: No CD- Drugs: No Caffeine use: Yes Place of Residence: Group Home Review of Systems 10-point ROS is otherwise unremarkable Physical Examination - Vital Signs Temperature: 96.5 F Blood Pressure: 139/61 Pulse: 90 Respirations: 20 Pulse Ox (%): 96 - Physical Exam General: Alert, In no apparent distress, Oriented x3 HEENT: Atraumatic, PERRLA, Mucous membr. moist/pink, EOMI, Sclerae nonicteric Neck: Supple, 2+ carotid pulse no bruit, No LAD, Without JVD or thyroid abnormality, Bruit, JVD distended Respiratory: Clear to auscultation bilaterally, Normal air movement Cardiovascular: Regular rate/rhythm, Normal S1 S2 Gastrointestinal: Normal bowel sounds, No tenderness Musculoskeletal: No tenderness Integumentary: Rash(es), Skin breakdown, Skin lesion, Tenderness/swelling, Erythema Neurological: Normal gait, Normal speech, Normal strength at 5/5 x4 extr, Normal tone, Normal affect Lymphatics: No axilla or inguinal lymphadenopathy - Studies Laboratory Data (last 24 hrs) 03/07/19 18:46: Sodium Cancelled, Potassium Cancelled, BUN Cancelled, Creatinine Cancelled, Glucose Cancelled, Magnesium 1.7 L, Total Bilirubin 0.3, AST 24, ALT 41, Alkaline Phosphatase 194 H 03/07/19 18:46: Sodium 133 L, Potassium 4.9, BUN 32 H, Creatinine 1.70 H, Glucose 712 H*, Total Bilirubin 0.3, AST 24, ALT 42, Alkaline Phosphatase 192 H 03/07/19 18:46: WBC 10.5, Hgb 12.9, Hct 41.0, Plt Count 85 L Assessment & Plan - Problems (Diagnosis) (1) Hyperosmolar non-ketotic state in patient with type 2 diabetes mellitus Current Visit: Yes Status: Acute (2) CAD (coronary artery disease) Onset Date: 07/08/18 Current Visit: No Status: Acute (3) COPD exacerbation Onset Date: 06/10/16 Current Visit: No Status: Acute (4) Hyperlipidemia Onset Date: 07/08/18 Current Visit: No Status: Acute (5) Hypertension Onset Date: 07/14/14 Current Visit: No Status: Acute - Plan Plan: 1. IV hydration 2. Insulin- long-acting insulin to assist with blood sugar control 3. monitor electrolytes 4. check hemoglobin A1c 5. strict blood pressure and blood sugar control 6. GI and DVT prophylaxis - Advance Directives Does patient have a Living Will: Yes Does patient have a Durable POA for Healthcare: Yes - Code Status/Comfort Care Code Status Assessed: Yes Code Status: Full Code Critical Care: No Time Spent Managing PTS Care (In Minutes): 50
[2019-03-08] MEDS ORDERED: NA CHLORIDE 0.9% 1,000 ML IV SCH (08:00)
[2019-03-08] MEDS ORDERED: LINEZOLID 600 MG TAB PO SCH (08:00)
[2019-03-08 08:54] LABS: Platelet Estimate DECR
[2019-03-08 08:58] LABS: Blood Morphology Comment NOTED (NOT SEEN)
[2019-03-08] MEDS ORDERED: INSULIN GLARGINE 100 UNITS/ML SQ SCH (09:00)
[2019-03-08] MEDS: FAMOTIDINE 20 MG TAB PO SCH (09:09)
[2019-03-08] MEDS: FUROSEMIDE 20 MG TABLET PO SCH (09:09)
[2019-03-08] MEDS: AMLODIPINE 10 MG TAB PO SCH (09:09)
[2019-03-08] MEDS: PYRIDOSTIGMINE 60 MG TABLET PO SCH ×2 (09:10→16:32)
[2019-03-08] MEDS: predniSONE 20 MG TAB PO SCH (09:10)
--- NOTE | 2019-03-08 12:29 | EKG ---
Test Date: 2019-03-07 Test Time: 19:47:16 Powder Loader: VERÓNICA MEASUREMENT RESULTS: Intervals: Rate: 80 NV: 166 QRSD: 88 QT: 404 QTc: 465 [place]: P: 56 NV: 166 QRS: 42 T: 120 INTERPRETIVE STATEMENTS: Normal sinus rhythm Inferior infarct, age undetermined Possible Anterior infarct, age undetermined Abnormal ECG Compared to ECG 02/05/2019 02:55:47 ST (T wave) deviation no longer present Possible ischemia no longer present Myocardial infarct finding still present Electronically Signed On 03-08-19 12:27:12 CDT by Sanchez Demarco
--- NOTE | 2019-03-08 16:29 | P.PN ---
Subjective Date of Service: 03/08/19 Chief Complaint: ALTERED MENTAL STATUS She noted to be drowsy today. Her blood sugar has been within acceptable range today without Lantus insulin. She has been afebrile. Physical Examination - Vital Signs Temperature: 96.9 F Blood Pressure: 132/59 Pulse: 83 Respirations: 18 Pulse Ox (%): 98 - Physical Exam General: In no apparent distress, Oriented x1 HEENT: Normocephalic, PERRLA, Mucous membr. moist/pink Neck: Supple, JVD not distended, No Thyromegaly Respiratory: Clear to auscultation bilaterally, Normal air movement Cardiovascular: No edema, Regular rate/rhythm, Normal S1 S2, No murmurs Capillary refill: <2 Seconds Gastrointestinal: Normal bowel sounds, Soft and benign, Non-distended, No tenderness Musculoskeletal: No clubbing, No swelling Integumentary: Other (Multiple bruises on bilateral upper extremities.) Neurological: Other (Moves all extremities spontaneously) - Studies Laboratory Data (last 24 hrs) 03/08/19 06:26: Sodium 144, Potassium 3.4 L, BUN 23 H, Creatinine 0.97, Glucose 148 H, Total Bilirubin 0.3, AST 9 L, ALT 34, Alkaline Phosphatase 133 H 03/08/19 06:26: WBC 12.9 H D, Hgb 11.7 L, Hct 34.9 L, Plt Count 71 L 03/07/19 20:39: PT 11.9, INR 1.01 03/07/19 18:46: Sodium Cancelled, Potassium Cancelled, BUN Cancelled, Creatinine Cancelled, Glucose Cancelled, Magnesium 1.7 L, Total Bilirubin 0.3, AST 24, ALT 41, Alkaline Phosphatase 194 H 03/07/19 18:46: Sodium 133 L, Potassium 4.9, BUN 32 H, Creatinine 1.70 H, Glucose 712 H*, Total Bilirubin 0.3, AST 24, ALT 42, Alkaline Phosphatase 192 H 03/07/19 18:46: WBC 10.5, Hgb 12.9, Hct 41.0, Plt Count 85 L Assessment And Plan - Current Problems (Diagnosis) (1) Hyperosmolar non-ketotic state in patient with type 2 diabetes mellitus Current Visit: Yes Status: Acute (2) CAD (coronary artery disease) Onset Date: 07/08/18 Current Visit: No Status: Acute (3) Hyperlipidemia Onset Date: 07/08/18 Current Visit: No Status: Acute (4) Hypertension Onset Date: 07/14/14 Current Visit: No Status: Acute (5) Impaired mobility Current Visit: Yes Status: Acute - Plan Continue insulin sliding scale for glucose management. Started Lantus insulin tonight. Monitor fingerstick glucose Diet as tolerated Continue oral prednisone. Limit psychotropic medications. Hold Atarax. PT and OT to evaluate to assist with disposition. Continues Zyvox which was prescribed for infected right heel wound. It appears the wound has healed.
[2019-03-08] MEDS ORDERED: D50W 25 GM/50 ML SYRINGE IV PRN (16:31)
[2019-03-08] MEDS ORDERED: GLUCAGON 1 MG/VIAL IM PRN (16:31)
[2019-03-08] MEDS: INSULIN GLARGINE 100 UNITS/ML SQ SCH ×2 (18:20→21:00)
[2019-03-08] MEDS ORDERED: NA CHLORIDE 0.9% 250 ML IV ONE (20:45)
[2019-03-08] MEDS ORDERED: INSULIN 70/30 100 UNITS/ML SQ ONE (20:47)
[2019-03-08] MEDS: LINEZOLID 600 MG TAB PO SCH (21:00)
[2019-03-08] MEDS: ROSUVASTATIN 10 MG TAB PO SCH (21:57)
[2019-03-09] MEDS: PYRIDOSTIGMINE 60 MG TABLET PO SCH ×3 (00:59→16:08)
[2019-03-09] MEDS: NA CHLORIDE 0.9% 1,000 ML IV SCH ×2 (02:40→16:10)
[2019-03-09 04:54] LABS: Absolute Lymphocytes (CBC) 2.6 K/uL (0.7-4.9); Hematocrit 33.8 % (36.0-45.0); Lymphocytes % 20.3 % (15.3-44.8); MPV 10.5 fL (7.6-11.3); RBC Red Blood Cell Count 3.53 M/uL (3.86-4.86)
[2019-03-09 05:09] LABS: Potassium 3.3 mmol/L (3.5-5.1)
[2019-03-09] MEDS: INSULIN -REGULAR HUMAN 50 UNIT/0.5 ML ML SQ SCH ×4 (07:30→20:18)
[2019-03-09] MEDS: LINEZOLID 600 MG TAB PO SCH ×2 (09:42→20:19)
[2019-03-09] MEDS: FAMOTIDINE 20 MG TAB PO SCH (09:43)
[2019-03-09] MEDS: FUROSEMIDE 20 MG TABLET PO SCH (09:43)
[2019-03-09] MEDS: AMLODIPINE 10 MG TAB PO SCH (09:43)
[2019-03-09] MEDS: predniSONE 20 MG TAB PO SCH (09:43)
--- NOTE | 2019-03-09 15:02 | P.PN ---
Subjective Date of Service: 03/09/19 Chief Complaint: ALTERED MENTAL STATUS Patient is more awake and eating well. She denies any complain. Her blood sugar was severely elevated last night. She was given a dose of 25 units NPH 70/30. Her fingerstick glucose was within normal range this morning. She has been afebrile. Physical Examination - Vital Signs Temperature: 97.2 F Blood Pressure: 174/76 Pulse: 91 Respirations: 17 Pulse Ox (%): 97 - Physical Exam General: Alert, Oriented x3 HEENT: Mucous membr. moist/pink Neck: Supple, JVD not distended Respiratory: Clear to auscultation bilaterally, Normal air movement Cardiovascular: No edema, Regular rate/rhythm, Normal S1 S2, No murmurs Capillary refill: <2 Seconds Gastrointestinal: Normal bowel sounds, Soft and benign, Non-distended Musculoskeletal: Other (Swelling palpated at the heel of her right foot.) Integumentary: No rashes Neurological: Other (Nonfocal.) Assessment And Plan - Current Problems (Diagnosis) (1) Hyperosmolar non-ketotic state in patient with type 2 diabetes mellitus Current Visit: Yes Status: Acute (2) CAD (coronary artery disease) Onset Date: 07/08/18 Current Visit: No Status: Acute (3) Hyperlipidemia Onset Date: 07/08/18 Current Visit: No Status: Acute (4) Hypertension Onset Date: 07/14/14 Current Visit: No Status: Acute (5) Impaired mobility Current Visit: Yes Status: Acute (6) Cellulitis of foot Current Visit: Yes Status: Acute (7) Hypothyroidism Current Visit: Yes Status: Acute - Plan Continue insulin sliding scale for glucose management. Patient was on Levemir insulin 36 units daily prior to her admission to [facility]. She was discharged with Lantus insulin 15 units b.i.d. from [facility]. Will prescribe Lantus insulin 25 units at bedtime. Monitor fingerstick glucose Diet as tolerated Continue oral prednisone. Limit psychotropic medications. Hold Atarax. Continues Zyvox for right foot cellulitis. It appears patient had a phlegmon of the right heel which was drained during her most recent hospitalization. She is supposed to follow up with an MRI of the foot on 03/11/2019. Resume Synthroid 88 mcg daily for hypothyroidism. PT and OT to evaluate to assist with disposition. SNF rehab recommended that has has declined and opted for either acute rehab or assisted-living facility. He is informed she may need more support than can be provided at the assisted living facility.
[2019-03-09] MEDS: ROSUVASTATIN 10 MG TAB PO SCH (20:10)
[2019-03-09] MEDS: QUETIAPINE 25 MG TAB PO SCH (20:19)
[2019-03-09] MEDS ORDERED: INSULIN GLARGINE 100 UNITS/ML SQ SCH (21:00)
[2019-03-10] MEDS: PYRIDOSTIGMINE 60 MG TABLET PO SCH ×2 (00:12→07:53)
[2019-03-10] MEDS: NA CHLORIDE 0.9% 1,000 ML IV SCH ×2 (00:13→13:00)
[2019-03-10 04:34] LABS: Basophils % 0.6 % (0-1.3); Hematocrit 33.9 % (36.0-45.0); Lymphocytes % 16.7 % (15.3-44.8); MPV 10.8 fL (7.6-11.3); RBC Red Blood Cell Count 3.53 M/uL (3.86-4.86)
[2019-03-10 04:43] LABS: Potassium 3.3 mmol/L (3.5-5.1)
[2019-03-10] MEDS: INSULIN -REGULAR HUMAN 50 UNIT/0.5 ML ML SQ SCH ×2 (07:30→12:01)
[2019-03-10] MEDS: AMLODIPINE 10 MG TAB PO SCH (07:53)
[2019-03-10] MEDS: FAMOTIDINE 20 MG TAB PO SCH (07:53)
[2019-03-10] MEDS: predniSONE 20 MG TAB PO SCH (07:53)
[2019-03-10] MEDS: LINEZOLID 600 MG TAB PO SCH (07:54)
[2019-03-10 08:17] VITALS: O2SAT 96
[2019-03-10] MEDS: FUROSEMIDE 20 MG TABLET PO SCH (08:17)
--- NOTE | 2019-03-10 11:38 | P.DS ---
Admission Date: 03/08/19 Discharge Date: 03/10/19 Disposition: [place] [facility]/HOME [facility] CARE Discharge Condition: FAIR Reason for Admission: ALTERED MENTAL STATUS Consultations: None - Problems (1) Hyperosmolar non-ketotic state in patient with type 2 diabetes mellitus Current Visit: Yes Status: Acute (2) CAD (coronary artery disease) Onset Date: 07/08/18 Current Visit: No Status: Acute (3) Hyperlipidemia Onset Date: 07/08/18 Current Visit: No Status: Acute (4) Hypertension Onset Date: 07/14/14 Current Visit: No Status: Acute (5) Impaired mobility Current Visit: Yes Status: Acute (6) Cellulitis of foot Current Visit: Yes Status: Acute (7) Hypothyroidism Current Visit: Yes Status: Acute Brief History of Present Illness: 74-year-old obese woman recently discharged from hospitalization for cellulitis of the right lower extremity to assisted living facility was brought from the facility to the emergency department due to altered mental status. Her blood sugar was noted to be in the 700s. Patient was diagnosed with hyperosmolar nonketotic coma and admitted for further management. Hospital Course: Patient was admitted to the medical floor, hydrated with normal saline, placed on insulin sliding scale and long-acting insulin. Her blood sugar and mental status improved with treatment. She had been taking Zyvox for right lower extremity cellulitis which we continued during the hospital stay. Lantus insulin was titrated to 25 units at bedtime. Her fasting glucose level was 79 with the 25 units Lantus. She also required about 10 units of regular insulin with meals. Of note she was on Levemir 36 units daily prior to admission to [facility]. She is prescribed Levemir 25 units at bedtime. This can be titrated up 30 units as needed. She is also prescribed short-acting insulin 7 units with meals. Patient was seen by physical therapy. She was able to ambulate with a walker with minimal asistance. [facility] re[facility] was recommended but declined and preferred patient to be discharged back to the assisted living facility. Patient is deemed clinically stable for discharge to assisted living facility with home health. Vital Signs/Physical Exam: Temp Pulse Resp BP Pulse Ox 97.6 F 85 18 151/77 H 99 03/10/19 08:00 03/10/19 08:00 03/10/19 08:00 03/10/19 08:00 03/10/19 08:00 General: In no apparent distress, Oriented x2 HEENT: Mucous membr. moist/pink Neck: Supple, JVD not distended Respiratory: Clear to auscultation bilaterally, Normal air movement Cardiovascular: Normal pulses, Regular rate/rhythm, Normal S1 S2, No murmurs, Edema (Bilateral lower extremity edema) Gastrointestinal: Normal bowel sounds, Soft and benign, Non-distended, No tenderness Integumentary: Erythema (Bilateral lower extremity.), Other (Soft tissue swelling at the heel of the right foot.) Neurological: Normal strength at 5/5 x4 extr Laboratory Data at Discharge: WBC 11.7 K/uL (4.3-10.9) H 03/10/19 03:32 Hgb 11.3 g/dL (12.0-15.0) L 03/10/19 03:32 Hct 33.9 % (36.0-45.0) L 03/10/19 03:32 Plt Count 73 K/uL (152-406) L 03/10/19 03:32 PT 11.9 SECONDS (9.5-12.5) 03/07/19 20:39 INR 1.01 03/07/19 20:39 Sodium 142 mmol/L (136-145) 03/10/19 03:32 Potassium 3.3 mmol/L (3.5-5.1) L 03/10/19 03:32 BUN 18 mg/dL (7-18) 03/10/19 03:32 Creatinine 0.82 mg/dL (0.55-1.3) 03/10/19 03:32 Glucose 162 mg/dL (74-106) H 03/10/19 03:32 Magnesium 1.7 mg/dL (1.8-2.4) L 03/07/19 18:46 Total Bilirubin 0.3 mg/dL (0.2-1.0) 03/08/19 06:26 AST 9 U/L (15-37) L 03/08/19 06:26 ALT 34 U/L (12-78) 03/08/19 06:26 Alkaline Phosphatase 133 U/L (45-117) H 03/08/19 06:26 Home Medications: Acetaminophen [Tylenol*] 650 mg PO Q6HP PRN 30 Days #30 tab 03/10/19 Amlodipine [Norvasc*] 10 mg PO DAILY 30 Days #30 tab 03/10/19 Ergocalciferol (Vitamin D2) [Vitamin D2] 50,000 unit PO EVERY 7TH DAY 30 Days # 4 capsule 03/10/19 Famotidine [Pepcid*] 20 mg PO DAILY 30 Days #30 tab 03/10/19 Furosemide [Lasix*] 20 mg PO DAILY 30 Days #30 tab 03/10/19 Insulin Detemir [Levemir] 25 units SQ BEDTIME 30 Days #10 ml 03/10/19 Insulin Lispro [Humalog] 7 unit SQ AC #10 ml 03/10/19 Levothyroxine [Synthroid*] 0.088 mg PO DAILYAC 30 Days #30 tab 03/10/19 Linezolid [Zyvox*] 600 mg PO BID 2 Days #4 tab 03/10/19 Melatonin/Pyridoxine HCl (B6) [Melatonin 3 mg Tablet] 6 mg PO BEDTIME PRN 30 Days #30 tablet 03/10/19 Pyridostigmine Dexter [Mestinon*] 60 mg PO Q8H 30 Days #90 tablet 03/10/19 Quetiapine [Seroquel*] 25 mg PO BEDTIME 30 Days #30 tab 03/10/19 Rosuvastatin [Crestor*] 20 mg PO BEDTIME 30 Days #30 tab 03/10/19 predniSONE [Prednisone*] 20 mg PO DAILY #30 tab 03/10/19 New Medications: Acetaminophen [Tylenol*] 650 mg PO Q6HP PRN 30 Days #30 tab PRN Reason: Pain Scale 2-4 (Mild) Amlodipine [Norvasc*] 10 mg PO DAILY 30 Days #30 tab Ergocalciferol (Vitamin D2) [Vitamin D2] 50,000 unit PO EVERY 7TH DAY 30 Days # 4 capsule Famotidine [Pepcid*] 20 mg PO DAILY 30 Days #30 tab Furosemide [Lasix*] 20 mg PO DAILY 30 Days #30 tab Insulin Detemir [Levemir] 25 units SQ BEDTIME 30 Days #10 ml Insulin Lispro [Humalog] 7 unit SQ AC #10 ml Levothyroxine [Synthroid*] 0.088 mg PO DAILYAC 30 Days #30 tab Linezolid [Zyvox*] 600 mg PO BID 2 Days #4 tab Melatonin/Pyridoxine HCl (B6) [Melatonin 3 mg Tablet] 6 mg PO BEDTIME PRN 30 Days #30 tablet PRN Reason: Insomnia predniSONE [Prednisone*] 20 mg PO DAILY #30 tab Pyridostigmine Dexter [Mestinon*] 60 mg PO Q8H 30 Days #90 tablet Quetiapine [Seroquel*] 25 mg PO BEDTIME 30 Days #30 tab Rosuvastatin [Crestor*] 20 mg PO BEDTIME 30 Days #30 tab Patient Discharge Instructions: Follow with [facility] within 1 week. Diet: ADA Activity: Fall precautions Time spent managing pt's care (in minutes): 40
[2019-03-10 12:13] VITALS: BP 128/54; TEMP 97
[2019-03-11] MEDS ORDERED: LEVOTHYROXINE SOD 0.088 MG TAB PO SCH (06:30)
== END 2019-03-10 14:56 | disposition home health service (06) | DRG 638 ==
LOC: ER 18:11 → ERHOLD 20:38 → 4TH 21:59 → OBSVTOIN 03-08 14:18
PROVIDERS: ADMIT Hospitalist; ATTEND Internal Medicine
DX: E11.00 Type 2 diabetes mellitus with hyperosmolarity without nonketotic hyperglycemic-hyperosmolar coma (NKHHC) (principal); J44.1 Chronic obstructive pulmonary disease with (acute) exacerbation; L03.115 Cellulitis of right lower limb; I25.10 Atherosclerotic heart disease of native coronary artery without angina pectoris; I10 Essential (primary) hypertension; E78.5 Hyperlipidemia, unspecified; Z74.09 Other reduced mobility; E03.9 Hypothyroidism, unspecified; Z79.4 Long term (current) use of insulin; Z91.81 History of falling
CPT/HCPCS: 36415; 70450; 71250; 72125; 80048; 80053; 80076; 82947; 82962; 83036; 83735; 83880; 84484; 85025; 85610; 93005; 96361; 96372; 96374; 97112; 97116; 97161; 97530; G0378; J1815; J7030; J7040; J7512

== ENCOUNTER 2019-04-13 13:29 | Inpatient (IN) | payer OTHER ==
--- OUTSIDE RECORDS SUMMARY | 2019-04-13 13:32 | XMS REPORT ---
:1945 Author Organization [facility] Address [address] [place] [address] Dr. Tillman [address] [place] [id number] Care Team Providers Name Role Phone RUMA SANTANA Unavailable Unavailable Problems This patient has no known problems. Allergies, Adverse Reactions, Alerts This patient has no known allergies or adverse reactions. Medications This patient has no known medications. Encounters Start End Encounter Admission Attending Care Care Encounter Date/Time Date/Time Type Type Clinicians Facility Department ID 2019-02-05 Inpatient [facility] MED [id number] 08:54:00 2018-12-24 Inpatient [facility] [id number] 18:32:00 2018-08-16 Inpatient [facility] [id number] 23:35:00 2018-11-29 2018-11-29 Emergency [facility] [id number] 07:33:00 07:33:00 2018-09-21 2018-09-21 Outpatient [facility] [id number] 18:06:00 18:06:00 2018-09-12 2018-09-10 Inpatient [facility] [id number] 15:01:00 00:20:00 2018-09-09 2018-09-08 Inpatient [facility] MED [id number] 11:57:00 09:51:00 Results Test Description Test Time Test Comments Text Results Atomic Results Result Comments TISSUE EXAM 2017-02-26 15:21:00 Surgical Pathology Report Case: [id number] Authorizing Provider: Ruma Santana MD Collected: 02/24/2017 1559 Ordering Location: [facility] Received: 02/25/2017 0810 [...] SERRATED POLYP/ADENOMA Signing Pathologist Direct Phone Line: [phone] signed by Kenji Hercules MD on 02/26/2017 at 3:21 [id number] x 3Diarrhea, rule out microscopic colitisA. Right/ascending [...] (BEAKER) (test 144 mg/dL 70-110 TESTED AT [facility] [id number]) [facility] [id number] POCT-GLUCOSE [id number] 14:21:00 Test Item Value Reference Range Comments POC-GLUCOSE METER (BEAKER) 118 mg/dL 70-110 TESTED AT [facility] [address] (test [id number]) [facility] [id number]
--- NOTE | 2019-04-13 14:47 | RAD REPORT ---
EXAM DESCRIPTION: US - Extremity Venous Uni Ltd - 04/13/2019 2:24 pm CLINICAL HISTORY: Leg pain and swelling, leg wounds COMPARISON: None. TECHNIQUE: Real-time sonographic evaluation of the right lower extremity deep venous systems was per formed. FINDINGS: Normal compressibility, flow augmentation, phasic flow and spontaneous flow are identified in the right lower extremity common femoral, superficial femoral, popliteal and posterior tibial vei ns. No intraluminal filling defects seen. Exam is considered limited. Due to significant pain, the pa tient had difficulty fully cooperate with the examination. IMPRESSION: Limited examination showing no right leg acute DVT.
[2019-04-13 15:48] LABS: Absolute Lymphocytes (CBC) 1.2 K/uL (0.7-4.9); Hematocrit 37.4 % (36.0-45.0); Lymphocytes % 7.6 % (15.3-44.8); MPV 10.1 fL (7.6-11.3)
[2019-04-13] MEDS ORDERED: NA CHLORIDE 0.9% 500 ML ONE (16:04)
[2019-04-13 16:05] LABS: Potassium 4.1 mmol/L (3.5-5.1)
--- NOTE | 2019-04-13 16:46 | ER ---
Nurse's Notes [facility] Name: Franci Lange Age: 74 yrs Sex: Female : 1945 Arrival Date: 04/13/2019 Time: 13:33 Bed 25 Private MD: Manfred Pearson R Diagnosis: Cellulitis of right lower limb;Open wound of foot-right;Osteomyelitis Presentation: 04/13 13:35 Presenting complaint: Right lower extremity swelling and pain x 1 month, worse over hb last few days. Transition of care: patient was not received from another setting of care. Onset of symptoms was April 13, 2019. Risk Assessment: Do you want to hurt yourself or someone else? Patient reports no desire to harm self or others. Care prior to arrival: None. 13:35 Method Of Arrival: Wheelchair hb 13:35 Acuity: JAY 3 hb 14:42 Initial Sepsis Screen: Does the patient meet any 2 criteria? No. Patient's initial ca1 sepsis screen is negative. Does the patient have a suspected source of infection? No. Patient's initial sepsis screen is negative. Historical: - Allergies: 13:37 Aspirin; hb 13:37 cefepime; hb 13:37 CEPHALOSPORINS; hb 13:37 Ciprofloxacin; hb 13:37 Cortizone-10; hb 13:37 PENICILLINS; hb 13:37 Phenobarbital; hb - PMHx: 13:37 Hypertension; High Cholesterol; Depression; CHF; Hypothyroidism; Diabetes - IDDM; hb Myasthenia Gravis; Myocardial infarction; Osteoporosis; - Immunization history:: Adult Immunizations up to date. - Social history:: Smoking status: Patient/guardian denies using tobacco. - Ebola Screening: : No symptoms or risks identified at this time. Screenin:57 Abuse screen: Denies threats or abuse. Denies injuries from another. Nutritional ca1 screening: No deficits noted. Tuberculosis screening: No symptoms or risk factors identified. Fall Risk Secondary diagnosis (15 points) MG. IV access (20 points). Ambulatory Aid- Crutches/Cane/Walker (15 pts). Gait- Weak (10 pts.). Assessment: 13:57 General: Appears in no apparent distress. uncomfortable, Behavior is calm, cooperative, ca1 appropriate for age. Pain: Complains of pain in right foot and right leg Pain currently is 10 out of 10 on a pain scale. Is continuous. Pain: Pain began over a month now but has gotten worse. Neuro: Level of Consciousness is awake, alert, obeys commands, Oriented to person, place, time, situation, Appropriate for age. Cardiovascular: Heart tones S1 S2 present Capillary refill < 3 seconds Patient's skin is warm and dry. Respiratory: Airway is patent Respiratory effort is even, unlabored, Respiratory pattern is regular, symmetrical, Breath sounds are clear bilaterally. GI: Abdomen is round non-distended, Bowel sounds present X 4 quads. Abd is soft and non tender X 4 quads. : No deficits noted. No signs and/or symptoms were reported regarding the genitourinary system. EENT: No deficits noted. No signs and/or symptoms were reported regarding the EENT system. Derm: Skin is healthy with good turgor, Skin is pink, warm \T\ dry. Derm: sores on right leg, yellowish in color, dry not bleeding and no drainage. Tender to touch. Skin surrounding the sores is red, hot and tender to touch. Musculoskeletal: Circulation, motion, and sensation intact. Capillary refill is > 3 seconds, Swelling present in right foot, left foot, right leg and left leg. 15:34 Reassessment: Patient appears in no apparent distress at this time. Patient and/or ca1 family updated on plan of care and expected duration. Pain level reassessed. Patient is alert, oriented x 3, equal unlabored respirations, skin warm/dry/pink. 15:36 Reassessment: Lab Personnel unable to draw 2nd set of cultures. Notified provider. ca1 Called outside lab to cancel 2nd set of Cultures. CBC, BMP, BNP also drawn by Lab Personnel. 16:30 Reassessment: Patient appears in no apparent distress at this time. Patient and/or ca1 family updated on plan of care and expected duration. Pain level reassessed. Patient is alert, oriented x 3, equal unlabored respirations, skin warm/dry/pink. 17:10 Reassessment: Dr. Marie at bedside. ca1 17:44 Reassessment: Patient appears in no apparent distress at this time. Patient is ca1 alert/active/playful, equal unlabored respirations, skin warm/dry/pink. Vital Signs: 13:37 BP 148 / 68; Pulse 68; Resp 16; Temp 98.2; Pulse Ox 100% on R/A; Weight 90.72 kg; hb Height 4 ft. 11 in. (149.86 cm); Pain 10/10; 14:45 BP 179 / 71; Pulse 82; Resp 17 S; Pulse Ox 98% on R/A; ca1 15:42 BP 151 / 75; Pulse 87; Resp 17 S; Pulse Ox 98% on R/A; ca1 16:30 BP 173 / 62; Pulse 89; Resp 17 S; Pulse Ox 97% on R/A; ca1 17:44 BP 127 / 68; Pulse 88; Resp 17 S; Pulse Ox 98% on R/A; ca1 13:37 Body Mass Index 40.39 (90.72 kg, 149.86 cm) hb ED Course: 13:33 Patient arrived in ED. mr 13:33 Manfred Pearson MD is Private Physician. mr 13:36 Triage completed. hb 13:37 Ananya Giordano FNP-C [facility]. kb 13:37 Bob Callahan MD is Attending Physician. kb 13:37 Arm band placed on. hb 13:38 Lisa Dunn, RENAY is Primary Nurse. ca1 13:57 Patient has correct armband on for positive identification. Placed in gown. Bed in low ca1 position. Call light in reach. Side rails up X2. satellite project site monitor on. Pulse ox on. NIBP on. Warm blanket given. 13:57 No provider procedures requiring assistance completed. ca1 14:19 US Extremity Venous Unilateral Ltd In Process Unspecified. EDMS 14:42 Inserted saline lock: 22 gauge in left antecubital area, using aseptic technique. ca1 ,using aseptic technique. by RENAY Alanis Blood collected. 14:42 Initial lab(s) drawn, by ED staff, sent to lab. First set of blood cultures drawn. ca1 16:12 Chest Single View XRAY In Process Unspecified. EDMS 16:12 Foot Right 3 View XRAY In Process Unspecified. EDMS 16:45 Ervin Marie MD is Hospitalizing Provider. kb 17:33 Inserted saline lock: 22 gauge in left upper arm, using aseptic technique. Blood iw collected. 17:36 IV discontinued, intact, bleeding controlled, No redness/swelling at site. Pressure ca1 dressing applied, infiltrated. 17:40 Inserted saline lock: 22 gauge in left upper arm, using aseptic technique. ,using ca1 aseptic technique. by JAYLENE Busby Blood collected. Administered Medications: 16:29 Drug: NS 0.9% 500 ml Route: IV; Rate: bolus; Site: left antecubital; ca1 18:13 Follow up: IV Status: Infusion continued upon admission ca1 16:30 Drug: vancoMYCIN 1 grams Route: IVPB; Infused Over: 2 hrs; Site: left antecubital; ca1 18:13 Follow up: IV Status: Infusion continued upon admission ca1 Outcome: 16:46 Decision to Hospitalize by Provider. kb 17:57 Admitted to Med/surg accompanied by tech, via stretcher, with chart, Report called to trChiara Hardin RN 17:57 Condition: stable 17:57 Instructed on the need for admit. 18:12 Patient left the ED. ca1 Signatures: Dispatcher [employer] EDMS Ananya Giordano, EVICTION SPECIALIST-C EVICTION SPECIALIST-Ckb Franci Hansen Irene, RN RENAY iw Alice Ramirez RN RN Lisa Dunn RN RN ca1 Zeke Leos RN RN tr5 Corrections: (The following items were deleted from the chart) 17:51 17:44 Pulse 88bpm; Resp 17bpm; Spontaneous; Pulse Ox 98% RA; ca1 ca1
--- NOTE | 2019-04-13 16:47 | EDPHYS ---
Physician Documentation [facility] Name: Franci Lange Age: 74 yrs Sex: Female : 1945 Arrival Date: 04/13/2019 Time: 13:33 Bed 25 Private MD: Manfred Pearson R ED Physician Bob Callahan HPI: 04/13 16:45 This 74 yrs old Female presents to ER via Wheelchair with complaints of Leg kb Swelling, Feet Swelling, Diarrhea. 16:46 The patient presents with cellulitis of the right rocha and right foot. Description: kb erythematous, hot, swollen, open wound. Onset: The symptoms/episode began/occurred 1 month(s) ago, and became worse 1 week(s) ago. Possible cause(s): unknown. Associated signs and symptoms: Pertinent positives: erythema, swelling. Modifying factors: the symptoms are alleviated by nothing, the symptoms are aggravated by pressure, touching. Severity of symptoms: At their worst the symptoms were moderate, in the emergency department the symptoms are unchanged. The patient has experienced a previous episode. The patient has been recently seen by a physician:. reports pt had an IVIG infusion on 03/18/19. Blisters developed to top of right foot 8-12 hours after infusion. Blisters progressed to wounds and now pt has redness, swelling, and increased pain to right foot and up calf with open wounds to top of right foot. . Historical: - Allergies: 13:37 Aspirin; hb 13:37 cefepime; hb 13:37 CEPHALOSPORINS; hb 13:37 Ciprofloxacin; hb 13:37 Cortizone-10; hb 13:37 PENICILLINS; hb 13:37 Phenobarbital; hb - PMHx: 13:37 Hypertension; High Cholesterol; Depression; CHF; Hypothyroidism; Diabetes - IDDM; hb Myasthenia Gravis; Myocardial infarction; Osteoporosis; - Immunization history:: Adult Immunizations up to date. - Social history:: Smoking status: Patient/guardian denies using tobacco. - Ebola Screening: : No symptoms or risks identified at this time. ROS: 16:43 Constitutional: Negative for fever, chills, and weight loss, ENT: Negative for injury, kb pain, and discharge, Neck: Negative for injury, pain, and swelling, Cardiovascular: Negative for chest pain, palpitations, and edema, Respiratory: Negative for shortness of breath, cough, wheezing, and pleuritic chest pain, Abdomen/GI: Negative for abdominal pain, nausea, vomiting, diarrhea, and constipation, Back: Negative for injury and pain, Neuro: Negative for headache, weakness, numbness, tingling, and seizure. 16:43 Skin: Positive for cellulitis, erythema, swelling, of the right rocha, anterior aspect of right ankle and dorsum of right foot. 16:43 Skin: Positive for open, crusted wounds to right foot. Exam: 16:43 Constitutional: This is a well developed, well nourished patient who is awake, alert, kb and in no acute distress. Head/Face: Normocephalic, atraumatic. ENT: Nares patent. No nasal discharge, no septal abnormalities noted. Tympanic membranes are normal and external auditory canals are clear. Oropharynx with no redness, swelling, or masses, exudates, or evidence of obstruction, uvula midline. Mucous membranes moist. Neck: Trachea midline, no thyromegaly or masses palpated, and no cervical lymphadenopathy. Supple, full range of motion without nuchal rigidity, or vertebral point tenderness. No Meningismus. Chest/axilla: Normal chest wall appearance and motion. Nontender with no deformity. No lesions are appreciated. Cardiovascular: Regular rate and rhythm with a normal S1 and S2. No gallops, murmurs, or rubs. Normal PMI, no JVD. No pulse deficits. Respiratory: Lungs have equal breath sounds bilaterally, clear to auscultation and percussion. No rales, rhonchi or wheezes noted. No increased work of breathing, no retractions or nasal flaring. Abdomen/GI: Soft, non-tender, with normal bowel sounds. No distension or tympany. No guarding or rebound. No evidence of tenderness throughout. Neuro: Awake and alert, GCS 15, oriented to person, place, time, and situation. Cranial nerves II-XII grossly intact. Motor strength 5/5 in all extremities. Sensory grossly intact. Cerebellar exam normal. Normal gait. 16:43 Skin: cellulitis, that is moderate, on the right rocha and right foot, open, crusted wounds to dorsum of right foot. Vital Signs: 13:37 BP 148 / 68; Pulse 68; Resp 16; Temp 98.2; Pulse Ox 100% on R/A; Weight 90.72 kg; hb Height 4 ft. 11 in. (149.86 cm); Pain 10/10; 14:45 BP 179 / 71; Pulse 82; Resp 17 S; Pulse Ox 98% on R/A; ca1 15:42 BP 151 / 75; Pulse 87; Resp 17 S; Pulse Ox 98% on R/A; ca1 16:30 BP 173 / 62; Pulse 89; Resp 17 S; Pulse Ox 97% on R/A; ca1 17:44 BP 127 / 68; Pulse 88; Resp 17 S; Pulse Ox 98% on R/A; ca1 13:37 Body Mass Index 40.39 (90.72 kg, 149.86 cm) hb MDM: 13:39 Patient medically screened. kb 15:41 Data reviewed: vital signs, nurses notes. Data interpreted: Pulse oximetry: on room air kb is 100 %. Interpretation: normal. ED course: 30cc/kg of fluid not given due to history of CHF. 16:42 Counseling: I had a detailed discussion with the patient and/or guardian regarding: the kb historical points, exam findings, and any diagnostic results supporting the discharge/admit diagnosis, lab results, radiology results, the need for further work-up and treatment in the hospital. Physician consultation: Ervin Marie MD was contacted at 16:43, regarding admission, to the medical/surgical unit. patient's condition, and will see patient in ED, shortly. 04/13 14:04 Order name: CBC with Diff; Complete Time: 17:37 kb 04/13 14:04 Order name: Basic Metabolic Panel; Complete Time: 16:08 kb 04/13 14:04 Order name: Procalcitonin; Complete Time: 16:27 kb 04/13 14:04 Order name: Lactate; Complete Time: 15:18 kb 04/13 14:04 Order name: Blood Culture Adult (2) kb 04/13 15:18 Order name: BNP; Complete Time: 16:12 kb 04/13 13:43 Order name: US Extremity Venous Unilateral Ltd; Complete Time: 14:51 kb 04/13 14:04 Order name: IV Start; Complete Time: 14:41 kb 04/13 15:18 Order name: Chest Single View XRAY; Complete Time: 17:47 kb 04/13 15:20 Order name: Foot Right 3 View XRAY; Complete Time: 16:54 kb 04/13 16:58 Order name: Foot Right Wo Cont EDMS 04/13 17:36 Order name: Manual Differential; Complete Time: 17:37 EDMS Administered Medications: 16:29 Drug: NS 0.9% 500 ml Route: IV; Rate: bolus; Site: left antecubital; ca1 18:13 Follow up: IV Status: Infusion continued upon admission ca1 16:30 Drug: vancoMYCIN 1 grams Route: IVPB; Infused Over: 2 hrs; Site: left antecubital; ca1 18:13 Follow up: IV Status: Infusion continued upon admission ca1 Disposition: 04/13/19 16:46 Hospitalization ordered by Ervin Marie for Inpatient Admission. Preliminary diagnosis are Cellulitis of right lower limb, Open wound of foot - right, Osteomyelitis. - Bed requested for Telemetry/MedSurg (Inpatient). - Status is Inpatient Admission. ca1 - Condition is Stable. - Problem is new. - Symptoms are unchanged. UTI on Admission? No Addendum: 04/16/2019 19:32 Co-signature as Attending Physician, Bob Callahan MD. r n Signatures: Dispatcher [employer] [facility] Ananya Giordano, BLOCK OPERATOR-C BLOCK OPERATOR-CkAngie Jaquez RN RN Bob Callahan MD MD rn Baxter, Heather, RN RN hb Acob, Cheryl, RN RN ca1 Corrections: (The following items were deleted from the chart) 04/13 17:27 16:46 Hospitalization Ordered by Ervin Marie MD for Inpatient Admission. Preliminary dw diagnosis is Cellulitis of right lower limb; Open wound of foot - right. Bed requested for Telemetry/MedSurg (Inpatient). Status is Inpatient Admission. Condition is Stable. Problem is new. Symptoms are unchanged. UTI on Admission? No. kb 17:38 17:27 04/13/2019 16:46 Hospitalization Ordered by Ervin Marie MD for Inpatient kb Admission. Preliminary diagnosis is Cellulitis of right lower limb; Open wound of foot - right. Bed requested for Telemetry/MedSurg (Inpatient). Status is Inpatient Admission. Condition is Stable. Problem is new. Symptoms are unchanged. UTI on Admission? No. dw 18:12 17:38 04/13/2019 16:46 Hospitalization Ordered by Ervin Marie MD for Inpatient ca1 Admission. Preliminary diagnosis is Cellulitis of right lower limb; Open wound of foot - right; Osteomyelitis. Bed requested for Telemetry/MedSurg (Inpatient). Status is Inpatient Admission. Condition is Stable. Problem is new. Symptoms are unchanged. UTI on Admission? No. kb
--- NOTE | 2019-04-13 16:52 | RAD REPORT ---
EXAM DESCRIPTION: RAD - Foot Right 3 View - 04/13/2019 4:12 pm CLINICAL HISTORY: Right foot pain FINDINGS: No fracture or dislocation is seen Osteoporosis Large calcaneal spurs. Soft tissue swelling Cortical irregularity involves the inferior aspect of the calcaneus which may indicate osteomyelitis
[2019-04-13] MEDS ORDERED: VANCOMYCIN/NS 1 gm 1 GM/250 ML BAG IV ONE (17:00)
[2019-04-13 17:35] LABS: Anisocytosis SLIGHT; Blood Morphology Comment NOTED (NOT SEEN); Platelet Estimate ADEQ
--- NOTE | 2019-04-13 17:43 | RAD REPORT ---
EXAM DESCRIPTION: Niru Single View04/13/2019 4:14 pm CLINICAL HISTORY: sob COMPARISON: January 2019 FINDINGS: The lungs appear clear of acute infiltrate. The heart is mildly enlarged. COURT COLLECTIONS OFFICER shunt courses the left hemithorax. Central venous line overlies the aortic arch presumably within the brachiocephalic vein
[2019-04-13] MEDS: NA CHLORIDE 0.9% 1,000 ML IV SCH ×2 (18:36→23:21)
[2019-04-13] MEDS ORDERED: ONDANSETRON 4 MG/2 ML VIAL IV PRN (18:36)
[2019-04-13] MEDS ORDERED: ACETAMINOPHEN 500 MG TAB PO PRN (18:36)
[2019-04-13] MEDS: CEFEPIME/SWI 2gm 2 GM/20 ML SYR IV SCH (19:00)
[2019-04-13] MEDS ORDERED: CEFEPIME 2 GM VIAL IV SCH (21:00)
--- NOTE | 2019-04-13 21:04 | RAD REPORT ---
EXAM DESCRIPTION: MRIFoot Right Wo Cont04/13/2019 8:44 pm CLINICAL HISTORY: right foot pain and swelling COMPARISON: April 13, 2019 x-ray TECHNIQUE: Axial, sagittal and coronal magnetic resonance imaging of the right foot was obtained. FINDINGS: Diffuse edema is present within the volar subcutaneous tissues of the forefoot. No significant areas of abnormal signal are visualized within the bones to suggest osteomyelitis. Soft tissue abscess is not seen IMPRESSION: Diffuse edema within the subcutaneous tissues of the forefoot probably indicate cellulit is No evidence of osteomyelitis
[2019-04-13] MEDS: INSULIN -REGULAR HUMAN 50 UNIT/0.5 ML ML SQ SCH (23:21)
[2019-04-13] MEDS: NYSTATIN PWDR 100000 UNIT/GM TOP SCH (23:22)
[2019-04-13] MEDS ORDERED: CEFEPIME 2 GM VIAL ONE (23:52)
[2019-04-14] MEDS ORDERED: NA CHLORIDE 0.9% 250 ML ONE (02:05)
[2019-04-14 02:17] VITALS: BMI 44.5
--- NOTE | 2019-04-14 02:43 | HP ---
Date of Admission: 04/13/2019 Primary Care Physician: Dr. Blas. Chief Complaint: Lower extremity cellulitis, right foot wound. Code Status: Full. History Of Present Illness: Patient is a 74-year-old female with past medical history of diabetes, c ongestive heart failure, chronic kidney disease, hypertension, COPD, hypocalcemia, spinal stenosis, m yasthenia gravis, dementia, who was in her usual state of health until 03/18/2019. Patient received some IVIG shots for her myasthenia gravis. Since then, patient reports she had development of some b listers on her right lower extremity especially on the dorsal aspect of the foot. She reports worsen ing swelling, erythema, redness, pain, and tenderness to touch. Patient has been wheelchair bound fo r the past 3 months. Also, reports some chills, subjective fevers, therefore came into the hospital for further evaluation. Patient is a resident of [facility]. In the ER, her vital signs were stable, she was afebrile. Her workup revealed a lactate of 3.9. Procalcitonin was negative. Her wh ite blood cell count was 15.9. Doppler sonogram of the right lower extremity was negative for DVT. X-ray of the right foot, however, showed cortical irregularity involving the inferior aspect of the c alcaneus, which may indicate osteomyelitis. Patient was then referred for admission she was given va ncomycin in the ER. When seen in the ER, she was awake, alert, and oriented x3, in some mild distres s due to pain. 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 Surgical History: Brain surgery x2, x3, cholecystectomy, neck surgery, carpal tunnel surge ry. Allergies: TO ASPIRIN, CIPRO, CORTISONE, PENICILLIN, PHENOBARBITAL. Medications: List reviewed. Social History: Patient denies any tobacco use, alcohol use, or illicit drug use. Resident of [facility]. Needs assistance with her activities of daily living. Patient is wheelchair bound for the past 3 months due to weakness. Family History: Mother has heart disease. Father also had heart disease, . Review of Systems: Ten-point system reviewed, negative except as per HPI. Physical Examination: Vital Signs: Temperature 98.2, heart rate 68, blood pressure 148/68, respirations 16, O2 100% on amira m air, BMI of 40.39. General: Awake, alert, and oriented x3. Elderly female, ill-appearing, in mild distress due to pain . Morbidly obese. HEENT: Normocephalic, atraumatic. PERRLA. EOMI. Moist mucous membranes. Oropharynx is clear. Co njunctivae are anicteric. Neck: Supple. Trachea midline. CV: S1, S2. Regular rate and rhythm. Peripheral pulses weak. Respiratory: Moving air well bilaterally. No wheezing or stridor. No use of accessory muscles. Gastrointestinal: Abdomen is soft, nontender, nondistended. Positive bowel sounds. Extremities: No clubbing or cyanosis. Patient has 3+ edema bilateral lower extremities. No calf te nderness. Skin: Bilateral lower extremity erythema, tenderness to palpation. Right foot dorsal aspect has mul tiple ulcerations. No drainage. Skin is warm to touch. Tenderness to palpation. Patient also has stage I sacral decubitus ulcer. Neuro: Cranial nerves 2 through 12 intact grossly. No focal neurological deficits. Speech is ledy l. Strength is symmetric in bilateral upper and lower extremities. Psych: Mood is okay. Affect is full. Insight and judgment are fair. Laboratory Data: Sodium 15.9, H and H 12.1 and 37.4, platelets 231, neutrophils 88%. Sodium 140, po tassium 4.1, chloride 107, CO2 of 27, BUN 18, creatinine 1.08, glucose 264, lactate 3.9, calcium 8.4. BNP 789. Procalcitonin less than 0.05. Imaging Studies: Doppler sonogram lower extremity shows no acute DVT. X-ray of the right foot shows no fracture, dislocation, osteoporosis, large calcaneal spurs, soft tissue swelling, cortical irregu larity involves the inferior aspect of the calcaneus, which may indicate osteomyelitis. Chest x-ray pending. Assessment: A 74-year-old female with, 1.Right lower extremity cellulitis. We will start on broad spectrum IV antibiotics with vancomycin and cefepime. Patient has had Keflex in the past with no reactions despite her allergy to penicillin . We will obtain blood cultures and wound cultures from the right foot. 2.Right calcaneal osteomyelitis. The patient's x-ray shows changes, cortical irregularities consist ent with osteomyelitis. We will obtain MRI of the foot. Patient will likely need long-term IV antib iotics. Consult surgery. 3.Metabolic acidosis. Lactate is elevated at 3.9. No signs of sepsis. Blood pressure is normal. Patient is afebrile, likely related to above. We will repeat lactate after IV fluids. 4.Congestive heart failure, systolic dysfunction, chronic. We will monitor I's and O's and restrict free fluid. Resume home medications. 5.Chronic obstructive pulmonary disease, chronic bronchitis. Albuterol as needed. 6.Essential hypertension. Resume home medications as appropriate. 7.Benign neoplasm, cerebral meninges. 8.Diabetes mellitus type 2 insulin requiring with hyperglycemia. We will start on sliding scale insu lawanda and monitor blood glucose levels. 9.Myasthenia gravis, status post IVIG. 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 11.History of spinal stenosis. 12.Osteoporosis. Plan: Admit patient to Med-Surg, place as inpatient. Length of stay greater than 2 midnights. SONNY Voice ID: [id number]
[2019-04-14] MEDS: VANCOMYCIN/NS 1 gm 1 GM/250 ML BAG IVPB SCH ×2 (05:00→16:40)
[2019-04-14 05:48] LABS: Absolute Lymphocytes (CBC) 2.6 K/uL (0.7-4.9); Hematocrit 36.1 % (36.0-45.0); Lymphocytes % 19.4 % (15.3-44.8); RBC Red Blood Cell Count 3.93 M/uL (3.86-4.86)
[2019-04-14 06:05] LABS: Potassium 3.4 mmol/L (3.5-5.1)
[2019-04-14] MEDS: CEFEPIME/SWI 2gm 2 GM/20 ML SYR IV SCH (07:00)
[2019-04-14] MEDS: NA CHLORIDE 0.9% 1,000 ML IV SCH (07:56)
[2019-04-14] MEDS: INSULIN -REGULAR HUMAN 50 UNIT/0.5 ML ML SQ SCH ×4 (08:43→21:57)
[2019-04-14] MEDS: NYSTATIN PWDR 100000 UNIT/GM TOP SCH ×2 (09:00→21:06)
[2019-04-14] MEDS ORDERED: MELATONIN 3 MG TABLET PO PRN (15:29)
[2019-04-14] MEDS: PYRIDOSTIGMINE 60 MG TABLET PO SCH (16:40)
--- NOTE | 2019-04-14 20:31 | PN ---
Date of Progress Note: 04/14/2019 History: Patient seen and examined, chart reviewed and case discussed with RN and Dr. Meléndez. Hus band at the bedside. Treatment plan explained. All questions answered. Medications: List reviewed. Physical Examination: Vital Signs: Temperature 98.1, heart rate 109, blood pressure 143/65, respirations 20, O2 93% on amira m air. General: Awake, alert, and oriented x3, elderly female, morbidly obese. CV: S1, S2. Regular rate and rhythm. Peripheral pulses weak. Respiratory: Diminished breath sounds at the bases. No wheezing or stridor. Gastrointestinal: Abdomen is soft, nontender, nondistended. Positive bowel sounds. Extremities: No clubbing, cyanosis. Patient does have peripheral edema. Skin: The patient has skin excoriations in the abdominal fold, groin region. Patient has diabetic f oot ulcer on the dorsal aspect of the foot without any active drainage. Neurologic: Nonfocal. Laboratory Data: Sodium 143, potassium 3.4, chloride 106, CO2 of 31, BUN 16, creatinine 0.84, glucos e 299, lactate 1.7, calcium 8.3. WBC 13.3, H and H 11.5 and 36.1, platelets 236, neutrophils 70%. B lood cultures pending. Wound culture is also pending. MRI of the foot shows diffuse edema within th e subcutaneous tissues of the forefoot probably indicating cellulitis. No evidence of osteomyelitis. Assessment: A 74-year-old female with, 1.Right lower extremity cellulitis. MRI of the foot is negative for osteomyelitis. Continue with b road-spectrum IV antibiotics. 2.Right calcaneal osteomyelitis shown on x-ray. MRI of the foot was negative however. Dr. Meléndez has been consulted. We will follow up on his recommendations. 3.Metabolic acidosis, lactate improving. No signs of sepsis. Continue IV fluids. 4.Congestive heart failure, systolic dysfunction, chronic. Monitor I's and O's. Continue home medi cations. 5.Chronic obstructive pulmonary disease, chronic bronchitis. Continue with albuterol as needed. 6.Essential hypertension, stable. 7.Benign neoplasm of cerebral meninges. 8.Diabetes mellitus type 2 insulin requiring with hyperglycemia. We will continue home dose of Lant us. Continue sliding scale insulin. Monitor blood glucose levels. Adjust as necessary. 9.Myasthenia gravis, status post IVIG. We will continue home medications. 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 11.History of spinal stenosis. 12.Osteoporosis. 13.Morbid obesity, BMI 44. 14.Hypokalemia, replace and monitor. Plan: Resume home medications as appropriate. DC IV fluids. Follow up on cultures. Possible surgi roger debridement. SA/MODL Voice ID: [id number] Report ID: [id number]
[2019-04-14] MEDS ORDERED: VANCOMYCIN 1.75 GM in NA CHLORIDE 0.9% 500 ML IVPB ONE (21:00)
[2019-04-14] MEDS ORDERED: HOME MED 1 EA UNK (Potassium Chloride [Micro-K] 10 MEQ) PO SCH (21:00)
[2019-04-14] MEDS ORDERED: HOME MED 1 EA UNK (Insulin Detemir [Levemir] 25 UNITS) SQ SCH (21:00)
[2019-04-14] MEDS ORDERED: HOME MED 1 EA UNK (Rosuvastatin Calcium [Crestor] 20 MG) PO SCH (21:00)
[2019-04-14] MEDS: FUROSEMIDE 20 MG TABLET PO SCH (21:05)
[2019-04-14] MEDS: POTASSIUM CL SA 10 MEQ TAB PO SCH (21:05)
[2019-04-14] MEDS: MORPHINE 2 MG/ML SYR IV PRN (21:05)
[2019-04-14] MEDS: ROSUVASTATIN 10 MG TAB PO SCH (21:05)
[2019-04-14] MEDS: QUETIAPINE 25 MG TAB PO SCH (21:06)
[2019-04-14] MEDS: INSULIN GLARGINE 100 UNITS/ML SQ SCH (21:56)
[2019-04-15] MEDS: PYRIDOSTIGMINE 60 MG TABLET PO SCH ×3 (01:00→16:47)
[2019-04-15] MEDS: CEFEPIME/SWI 2gm 2 GM/20 ML SYR IV SCH ×2 (02:40→13:25)
[2019-04-15 06:01] LABS: Absolute Lymphocytes (CBC) 3.5 K/uL (0.7-4.9); Basophils % 1.3 % (0-1.3); Hematocrit 40.1 % (36.0-45.0); Lymphocytes % 29.8 % (15.3-44.8); MPV 10.3 fL (7.6-11.3); RBC Red Blood Cell Count 4.35 M/uL (3.86-4.86)
[2019-04-15 06:14] LABS: Potassium 3.4 mmol/L (3.5-5.1)
[2019-04-15] MEDS: LEVOTHYROXINE SOD 0.088 MG TAB PO SCH (06:14)
[2019-04-15] MEDS: INSULIN -REGULAR HUMAN 50 UNIT/0.5 ML ML SQ SCH ×4 (07:30→20:19)
[2019-04-15] MEDS: MEDIHONEY 44 ML TOPICAL TUBE TOP SCH (09:00)
[2019-04-15] MEDS: FUROSEMIDE 40 MG TABLET PO SCH (09:42)
[2019-04-15] MEDS: predniSONE 5 MG TAB PO SCH (09:43)
[2019-04-15] MEDS: predniSONE 20 MG TAB PO SCH (09:43)
[2019-04-15] MEDS: POTASSIUM CL SA 10 MEQ TAB PO SCH ×3 (09:43→20:20)
[2019-04-15] MEDS: SERTRALINE HCL 50 MG TAB PO SCH (09:43)
[2019-04-15] MEDS: FAMOTIDINE 20 MG TAB PO SCH (09:44)
[2019-04-15] MEDS: NYSTATIN PWDR 100000 UNIT/GM TOP SCH ×2 (09:44→20:22)
[2019-04-15] MEDS: AMLODIPINE 10 MG TAB PO SCH (09:44)
[2019-04-15] MEDS ORDERED: NA CHLORIDE 0.9% 1,000 ML ONE (12:49)
[2019-04-15] MEDS ORDERED: COLLAGENASE 30 GM OINTMENT TOP ONE (12:59)
[2019-04-15] MEDS ORDERED: PROPOFOL 200 MG/20 ML VIAL IV ONE (13:06)
[2019-04-15] MEDS ORDERED: FENTANYL CITR 100 MCG/2 ML ONE (13:06)
[2019-04-15] MEDS ORDERED: LIDOCAINE 1% MPF 5 ML VIAL ONE (13:06)
[2019-04-15] MEDS ORDERED: MIDAZOLAM HCL 2 MG/2 ML INJ ONE (13:06)
[2019-04-15] MEDS ORDERED: MUPIROCIN 2% OINT 22GM TUBE TOP ONE (13:43)
--- NOTE | 2019-04-15 13:56 | P.BOP ---
Preoperative diagnosis: right foot diabetic ulcers Postoperative diagnosis: same Primary procedure: 1. debridement of distal dorsal diabetic foot ulcer 5 x 4 x 0.2cm Secondary procedure: 2. debridement of proximall dorsal diabetic foot ulcer 8 x 5 x 0.2cm Estimated blood loss: <10cc Specimen: none Findings: as above Anesthesia: MAC Complications: None Transferred to: Recovery Room Condition: Good
[2019-04-15] MEDS: MORPHINE 2 MG/ML SYR IV PRN (20:18)
[2019-04-15] MEDS: ROSUVASTATIN 10 MG TAB PO SCH (20:20)
[2019-04-15] MEDS: INSULIN GLARGINE 100 UNITS/ML SQ SCH (20:20)
[2019-04-15] MEDS: FUROSEMIDE 20 MG TABLET PO SCH (20:20)
[2019-04-15] MEDS: QUETIAPINE 25 MG TAB PO SCH (20:22)
--- NOTE | 2019-04-15 21:44 | PN ---
Date of Progress Note: 04/15/2019 Subjective: Patient seen and examined. Chart reviewed and case discussed with RN and Dr. Meléndez. Patient went for debridement this morning, had to be taken down to OR with MAC due to severe pain. Patient did well. Medications: List reviewed. Physical Examination: Vital Signs: Temperature 97, heart rate 72, blood pressure 151/51, respirations 18, O2 sat 94% on room air. General: Awake, alert, and oriented x3. Morbidly obese female, elderly. CV: S1, S2. Regular rate and rhythm. Peripheral pulses present. Respiratory: Diminished breath sounds at the bases. Extremities: No clubbing or cyanosis. Patient has lower extremity edema. Neurologic: Nonfocal. Skin: Patient has diabetic foot wound on the right, status post debridement. Laboratory Data: WBC 11.7, H and H 12.7 and 40.1, platelets 232. Sodium 142, potassium 3.4, chloride 107, CO2 of 30, BUN 13, creatinine 0.86, glucose 158, calcium 8.4. Blood cultures, no growth to date. Wound cultures from the right foot growing Staph coagulase positive. ID and sensitivity pending. Assessment: A 74-year-old female with: 1. Right lower extremity cellulitis. MRI negative for osteomyelitis. Continue with IV antibiotics. I spoke with radiologist, foot x-ray that had shown calcaneal osteomyelitis, was likely artifact due to fasciitis showing up as calcaneal osteomyelitis. MRI does not show any osteomyelitis. 2. Metabolic acidosis, improving. Continue with IV fluids. 3. Hypokalemia, replace and monitor. 4. Chronic obstructive pulmonary disease, chronic bronchitis. Continue with nebulizers as needed. 5. Congestive heart failure, systolic dysfunction, chronic. We will monitor I 's and O's. Continue home medications. 6. Benign neoplasm of the cerebral meninges. 7. Diabetes mellitus type 2, insulin requiring, with hyperglycemia. We will continue Lantus and sliding scale insulin. Blood glucose levels better today. 8. Myasthenia gravis. Patient is on IVIG treatment as an outpatient. 9. Dementia, likely multi-infarct without behavioral disturbance. 10. History of spinal stenosis. 11. Osteoporosis, stable. 12. Morbid obesity, BMI 44. 13. Essential hypertension, stable. Plan: We will follow up on wound cultures, currently growing Staph coagulase positive, may be MRSA. Continue IV antibiotics and wound care. SA/MODL Voice ID: [id number] Report ID: [id number] TIANA
--- NOTE | 2019-04-16 00:38 | OP ---
Date of Procedure: 04/14/2019 Surgeon: Orville Meléndez MD This patient was seen at about 10 o'clock at night, on 04/14/2019. History Of Present Illness: This is the case of a 74-year-old patient with multiple medical problems , found to have a blister several days ago over her left foot that broke developed into an ulcer. Ishmael molina was admitted for other medical conditions and then I was called up for surgical debridement of the foot ulcer. The believe there was somehow some relation with previous medication, althou gh she has chronic swelling in that area. There is no history of trauma that she can remember. Review of Systems: Unable to be obtained. Physical Examination: General: Patient is awake, but does not give much information. She has history of dementia. Chest: Clear. Bilateral breath sounds. Extremities: Bilateral lower extremity with pitting edema, also the entire body. She has some blist ers on the right foot that broke with ulcer and necrotic tissue present that need to be debrided. No cyanosis present. Abdomen: Soft and depressible. No guarding or rebound. Medical History: Reviewed including also COPD, hypertension, congestive heart failure, respiratory f ailure history, spinal stenosis, myasthenia gravis, dementia, kidney disease, diabetes. Past Surgical History: Include cholecystectomy, neck surgery, brain surgery, carpal tunnel. Allergies: INCLUDE ASPIRIN, CIPRO, CORTISONE, PENICILLIN, PHENOBARBITAL. Social History: She does not smoke, she does not drink alcohol. Family History: Noncontributory. Imaging: MRI and x-ray of the foot reviewed, we did not see any ulcers over the calcaneal region, so it is unable to clinically correlate the findings of the calcaneus with the physical examination. Laboratory Data: Blood work shows WBC count of 13.3 and hemoglobin of 11.5. Assessment: A 74-year-old patient with, 1.Necrotic ulcer on the foot. It looked like a venous stasis disease with lymphedema and chronic sw elling, unable to say if it is related to medications or not. It is located in the area where the ar ea is swollen and trying to form a drain and then blister just formed. They broke so I am going to c lean that tissue from that area, cleaned the wounds. I do not feel any fluctuancy at this moment, al though during surgical intervention, we are going to see if there is any pulse there or not. Consent was obtained for debridement of a right foot ulcer with benefits, alternatives, and risks including, but not limited to infection, bleeding, damage to adjacent structures, anesthesia complications, rec urrence, [place], and even . They also understand the need to wound care. I talked to her over the night, but she is having so much pain, is unable to obtain any information, and then in the morning I discussed that case with the too and who gave us the consent. HAY/MASSIEL Voice ID: [id number] Report ID: [id number]
[2019-04-16] MEDS: CEFEPIME/SWI 2gm 2 GM/20 ML SYR IV SCH ×2 (01:17→13:33)
[2019-04-16] MEDS: PYRIDOSTIGMINE 60 MG TABLET PO SCH ×2 (01:17→08:00)
--- NOTE | 2019-04-16 01:18 | OP ---
Date of Procedure: 04/15/2019 Surgeon: Orville Meléndez MD Postoperative Diagnosis: Right foot diabetic ulcers with necrotic tissue. Postoperative Diagnosis: Right foot diabetic ulcers with necrotic tissue. Procedure Performed: 1.Debridement of the distal dorsal diabetic foot ulcer 5 x 4 x 0.2 cm. 2.Debridement of proximal dorsal diabetic ulcer 8 x 5 x 0.2 cm. Estimated Blood Loss: Less than 10 mL. Anesthesia: Sedation plus local anesthetic. Findings: Patient has a necrotic tissue over the area of the ulcer. We did not see any fluctuance o r crepitus that goes into the skin and subcutaneous tissue. Does not seem to be penetrating deeper a nd there is no fluctuance seen. There is no purulent discharge. Indications: This is the case of a female who comes to us with multiple medical problems, also anasa rca and developed blisters on the right foot that developed into ulcers that had some necrotic tissue present and they asked surgical service to debride that, especially when the patient cannot have it at bedside since it is very tender. The benefits, alternatives, and risks of debridement fully expla ined to the patient and family, which include, but are not limited to infection, bleeding, damage to adjacent structures, anesthesia complications, nonhealing wound, OH, and even . They also under stood this may not relieve any symptoms. She might need more than one surgical intervention. She wi ll require wound care. Also explained the importance of following up at the [facility] whe n discharged home. Description Of Procedure: Patient was brought to the operating room, placed in supine position. Ane sthesia was induced without complication. The right foot was prepped and draped in the usual sterile fashion. A time-out was called. Local anesthesia was applied followed by debridement of the right foot ulcer proximal and distal using a sharp knife. Debridement was done. The area was covered with sterile dressings. The patient tolerated the procedure well. Patient was sent to the Recovery in s table condition. Discussed with the primary doctor if she gets discharged from a surgical standpoint , she only have to use [employer] to that area daily. Follow up this next [facility]. HAY/MASSIEL Voice ID: [id number] Report ID: [id number]
[2019-04-16] MEDS ORDERED: VANCOMYCIN 1.75 GM in NA CHLORIDE 0.9% 500 ML IVPB SCH (02:00)
[2019-04-16] MEDS: LEVOTHYROXINE SOD 0.088 MG TAB PO SCH (04:59)
[2019-04-16 06:51] LABS: Absolute Lymphocytes (CBC) 3.1 K/uL (0.7-4.9); Basophils % 1.8 % (0-1.3); Hematocrit 35.1 % (36.0-45.0); Lymphocytes % 24.8 % (15.3-44.8); MPV 10.4 fL (7.6-11.3); RBC Red Blood Cell Count 3.87 M/uL (3.86-4.86)
[2019-04-16 07:13] LABS: Potassium 3.4 mmol/L (3.5-5.1)
[2019-04-16] MEDS: INSULIN -REGULAR HUMAN 50 UNIT/0.5 ML ML SQ SCH ×2 (07:30→13:25)
[2019-04-16] MEDS: FAMOTIDINE 20 MG TAB PO SCH (08:01)
[2019-04-16] MEDS: AMLODIPINE 10 MG TAB PO SCH (08:01)
[2019-04-16] MEDS: predniSONE 20 MG TAB PO SCH (08:01)
[2019-04-16] MEDS: POTASSIUM CL SA 10 MEQ TAB PO SCH ×2 (08:01→13:26)
[2019-04-16] MEDS: FUROSEMIDE 40 MG TABLET PO SCH (08:01)
[2019-04-16] MEDS: predniSONE 5 MG TAB PO SCH (08:02)
[2019-04-16] MEDS: SERTRALINE HCL 50 MG TAB PO SCH (08:02)
[2019-04-16] MEDS: MEDIHONEY 44 ML TOPICAL TUBE TOP SCH ×2 (08:03→13:24)
[2019-04-16 08:25] VITALS: O2SAT 93
[2019-04-16] MEDS: NYSTATIN PWDR 100000 UNIT/GM TOP SCH (10:51)
[2019-04-16 13:01] VITALS: TEMP 98.2
[2019-04-16] MEDS: MORPHINE 2 MG/ML SYR IV PRN (13:42)
[2019-04-16 14:53] VITALS: BP 146/68
--- NOTE | 2019-04-17 04:15 | DS ---
Date of Discharge: 04/16/2019 Consultants: Dr. Meléndez with General Surgery. Procedures: Diabetic foot wound on the right with necrotic tissue debridement on 04/15/2019. Admitting Diagnoses: 1.Right lower extremity cellulitis. 2.Diabetic foot wound with ulcerations. 3.Metabolic acidosis. 4.Congestive heart failure, systolic dysfunction, chronic. 5.Chronic obstructive pulmonary disease, chronic bronchitis. 6.Essential hypertension. 7.Diabetes mellitus type 2 insulin requiring with hyperglycemia and skin infection. 8.Myasthenia gravis, status post IVIG. 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 10.History of spinal stenosis. 11.Osteoporosis. Discharge Diagnoses: 1.Right lower extremity cellulitis, MRI negative for osteomyelitis. 2.Diabetic foot ulcer on the right, status post incision and drainage growing Staph aureus, sensitiv e to doxycycline. 3.Metabolic acidosis, improved. 4.Congestive heart failure, systolic dysfunction, chronic. 5.Chronic obstructive pulmonary disease, chronic bronchitis, stable. 6.Essential hypertension, stable. 7.Benign neoplasm of the cerebral meninges. 8.Diabetes mellitus type 2 insulin requiring with hyperglycemia, stable. 9.Myasthenia gravis, on IVIG as outpatient. 10.Dementia, vascular without behavioral disturbance. 11.History of spinal stenosis. 12.Osteoporosis. 13.Morbid obesity, BMI 44. 14.Hypokalemia, replaced. Hospital Course: Patient is a 74-year-old female with past medical history of diabetes, CHF, chronic kidney disease, hypertension, COPD, spinal stenosis, myasthenia gravis, dementia, resident of [place], comes in with diabetic foot wound on the right. Patient had cellulitis of the lower extr emity as well. Doppler was negative for DVT. X-ray showed some cortical irregularity involving the inferior aspect of the calcaneus, may indicate osteomyelitis. MRI was done to confirm, however MRI w as negative for any osteomyelitis. Per Radiology the cortical irregularity was artifact from fasciit is on the x-ray. MRI negative for any osteomyelitis. No signs. Patient was started on IV antibioti cs. Cultures were obtained. Dr. Meléndez with General Surgery was consulted, he recommended I and D . The patient tolerated the procedure well. The patient's wound cultures grew out MSSA. However, p tyient is allergic to penicillin. Therefore, she will be switched over to doxycycline on discharge. Her blood cultures remained negative. Overall patient did well. Her other chronic medical conditio ns remained stable. Patient was then cleared for discharge and was sent back to the nursing facility in a stable condition. Activity: Fall precautions. Diet: Diabetic. Followup: Follow up with primary care physician in 2-3 days. Follow up with Dr. Meléndez in the [facility] next Thursday. Return to ER for worsening condition. Medications: List reviewed. Physical Examination: General: Awake, alert, and oriented x3. Morbidly obese female. CV: S1, S2. Respiratory: Moving air well bilaterally. Diminished breath sounds at the bases. Gastrointestinal: Abdomen is soft, nontender, nondistended. Positive bowel sounds. Extremities: No clubbing, cyanosis. Patient has peripheral edema bilaterally. Skin: Right foot incision site clean, dry, intact, bandaged. No drainage. Neurologic: Nonfocal. Total time spent discharging the patient was 41 minutes. SONNY Voice ID: [id number] Report ID: [id number]
== END 2019-04-16 16:34 | disposition home or self-care (01) | DRG 603 ==
LOC: ER 13:29 → ERHOLD 16:57 → 4TH 18:00
PROVIDERS: ADMIT Family Medicine; ATTEND Family Medicine
PROC: 0JDQ3ZZ Extraction of Right Foot Subcutaneous Tissue and Fascia, Percutaneous Approach (ICD-10-PCS; principal; 2019-04-15 14:00)
DX: L03.115 Cellulitis of right lower limb (principal); E87.2 Acidosis; I50.32 Chronic diastolic (congestive) heart failure; Z68.41 Body mass index [BMI] 40.0-44.9, adult; B95.62 Methicillin resistant Staphylococcus aureus infection as the cause of diseases classified elsewhere; E11.621 Type 2 diabetes mellitus with foot ulcer; E11.65 Type 2 diabetes mellitus with hyperglycemia; I11.0 Hypertensive heart disease with heart failure; J44.9 Chronic obstructive pulmonary disease, unspecified; D32.0 Benign neoplasm of cerebral meninges; G70.00 Myasthenia gravis without (acute) exacerbation; F01.50 Vascular dementia, unspecified severity, without behavioral disturbance, psychotic disturbance, mood disturbance, and anxiety; M81.0 Age-related osteoporosis without current pathological fracture; E66.01 Morbid (severe) obesity due to excess calories; E87.6 Hypokalemia; Z88.6 Allergy status to analgesic agent; Z88.0 Allergy status to penicillin
CPT/HCPCS: 36415; 71045; 80048; 82947; 83605; 83880; 84145; 85025; 87040; 87070; 87075; 87077; 87186; 87205; 93971; 94760; 96365; 96366; 99251; 99285; J0692; J1815; J2250; J2270; J2704; J3010; J3370; J3590; J7030; J7040; J7512

== ENCOUNTER 2019-05-15 12:51 | Emergency (ER) | payer OTHER ==
--- OUTSIDE RECORDS SUMMARY | 2019-05-15 12:54 | XMS REPORT ---
:1945 Author Organization [facility] Address [address] [place] [address] Dr. Tillman [address] [place] [id number] Care Team Providers Name Role Phone RUMA SANTANA Unavailable Unavailable Problems This patient has no known problems. Allergies, Adverse Reactions, Alerts This patient has no known allergies or adverse reactions. Medications This patient has no known medications. Encounters Start End Encounter Admission Attending Care Care Encounter Date/Time Date/Time Type Type Clinicians Facility Department ID 2019-02-05 Inpatient [facility] MED [id number] 08:54:00 2018-12-24 Inpatient [facility] [id number] 18:32:00 2018-08-16 Inpatient E [facility] [id number] 23:35:00 2018-11-29 2018-11-29 Emergency E [facility] [id number] 07:33:00 07:33:00 2018-09-21 2018-09-21 Outpatient U [facility] [id number] 18:06:00 18:06:00 2018-09-12 2018-09-10 Inpatient U [facility] [id number] 15:01:00 00:20:00 2018-09-09 2018-09-08 Inpatient [facility] MED [id number] 11:57:00 09:51:00 Results Test Description Test Time Test Comments Text Results Atomic Results Result Comments TISSUE EXAM 2017-02-26 15:21:00 Surgical Pathology Report Case: [id number] Authorizing Provider: Ruma Santana MD Collected: 02/24/2017 1559 Ordering Location: [facility] Received: 02/25/2017 0810 Pathologist: [...] SERRATED POLYP/ADENOMA Signing Pathologist Direct Phone Line: [phone] signed by Kenji Hercules MD on 02/26/2017 at 3:21 [id number] x 3Diarrhea, rule out microscopic colitisA. Right/ascending [...] (BEAKER) (test 144 mg/dL 70-110 TESTED AT [facility] [address] [facility] wuls[facility][id number][facility] [id number] POCT-GLUCOSE [id number] 14:21:00 Test Item Value Reference Range Comments POC-GLUCOSE METER (BEAKER) 118 mg/dL 70-110 TESTED AT [facility] [address] (test fjce=1284) [facility] [id number]
[2019-05-15] MEDS ORDERED: HYDROCODONE/APAP 10/325 TAB ONE (14:07)
--- NOTE | 2019-05-15 14:31 | RAD REPORT ---
EXAM DESCRIPTION: CT - Spine Lumbar Wo Con - 05/15/2019 1:33 pm CLINICAL HISTORY: Fall, back pain Reporting delayed due to technical issues with dataset COMPARISON: CT lumbar spine February 02, 2019 TECHNIQUE: Thin section axial imaging of the lumbar spine was performed. Sagittal and coronal recon struction images were generated and reviewed. All CT scans are performed using dose optimization technique as appropriate and may include automated exposure control or mA/KV adjustment according to patient size. FINDINGS: Approximately 25% anterior wedge compression fracture involves the L2 body. This is new fr om the February 02 imaging. Posterior wall height is preserved. No encroachment into the central jeannine l. No pathologic component in the L2 fracture. No paraspinal mass or hematoma. Remaining lumbar bodies are normal in height. Prominent degenerative endplate spurs seen from the lef t lateral margin of the superior endplate L2. Prominent facet degenerative changes are present throughout the lumbar spine. Left L4 pars interartic ularis defect is developing. Patient has prominent facet degenerative change at this level. No other pars defects seen. Canal is stenotic at the L1-2 level. Overall central canal is congenitally narrow. Significant left f oraminal disc bulge at L3-4 causing mild stenosis. Bilateral foraminal stenosis at L4-5 due to disc b ulge, ligamentous thickening and facet hypertrophy. Significant canal stenosis present. IMPRESSION: Approximately 25% compression fracture L2. This is new from February 02 imaging and josr eved to be acute. Central spinal stenosis changes are present at L1-2 and L4-5. Significant foraminal stenosis bilaterally at L4-5 and on the left at L3-4.
--- NOTE | 2019-05-15 15:00 | EDPHYS ---
Physician Documentation [facility] Name: Franci Lange Age: 74 yrs Sex: Female : 1945 Arrival Date: 05/15/2019 Time: 12:55 Bed 7 Private MD: ED Physician Luther Vang HPI: 05/15 13:07 This 74 yrs old Female presents to ER via EMS with complaints of Low Back augusta Pain. 13:07 The patient presents with pain that is acute. The symptoms are located in the low back. augusta The pain does not radiate. The problem was sustained during a fall, while sitting. Onset: The symptoms/episode began/occurred just prior to arrival. Modifying factors: The patient symptoms are alleviated by remaining still, the patient symptoms are aggravated by movement. Severity of symptoms: At their worst the symptoms were mild, in the emergency department the symptoms are unchanged. The patient has experienced similar episodes in the past, multiple times. Historical: - Allergies: 12:49 Aspirin; rb1 12:49 cefepime; rb1 12:49 CEPHALOSPORINS; rb1 12:49 Ciprofloxacin; rb1 12:49 Cortizone-10; rb1 12:49 PENICILLINS; rb1 12:49 Phenobarbital; rb1 - Home Meds: 12:49 amlodipine 10 mg tab 1 tab once daily [Active]; Fosamax 70 mg Oral tab 1 tab once wkly rb1 [Active]; furosemide 40 mg Oral tab 1 tab 2 times per day [Active]; Levemir 100 unit/mL subcutaneous soln 36 unit twice a day [Active]; levothyroxine 88 mcg tab 1 tab nightly [Active]; potassium chloride 20 mEq Oral TbER 1 tab 2 times per day [Active]; prednisone 30 mg Oral tab 1 tab once daily [Active]; pyridostigmine bromide 60 mg Oral tab 1 tab 3 times per day [Active]; ramipril 10 mg Oral cap 1 cap once daily [Active]; rosuvastatin 20 mg Oral tab 1 tab once daily [Active]; sertraline 25 mg Oral tab 1 tab once daily [Active]; Trulicity 1.5 mg/0.5 mL subcutaneous pnij 0.5 mL once wkly [Active]; 12:49 clonazepam Oral [Active]; aa5 - PMHx: 12:49 CHF; Depression; Diabetes - IDDM; High Cholesterol; Hypertension; Hypothyroidism; rb1 Myasthenia Gravis; Myocardial infarction; Osteoporosis; - Immunization history:: Adult Immunizations up to date. - Social history:: Smoking status: Patient/guardian denies using tobacco. - Ebola Screening: : Patient negative for fever greater than or equal to 101.5 degrees Fahrenheit, and additional compatible Ebola Virus Disease symptoms. - Family history:: not pertinent. ROS: 13:07 Constitutional: Negative for fever, chills, and weight loss, Eyes: Negative for injury, augusta pain, redness, and discharge, ENT: Negative for injury, pain, and discharge, Neck: Negative for injury, pain, and swelling, Cardiovascular: Negative for chest pain, palpitations, and edema, Respiratory: Negative for shortness of breath, cough, wheezing, and pleuritic chest pain, Abdomen/GI: Negative for abdominal pain, nausea, vomiting, diarrhea, and constipation, : Negative for injury, bleeding, discharge, and swelling, MS/Extremity: Negative for injury and deformity, Skin: Negative for injury, rash, and discoloration, Neuro: Negative for headache, weakness, numbness, tingling, and seizure, Psych: Negative for depression, anxiety, suicide ideation, homicidal ideation, and hallucinations, Allergy/Immunology: Negative for hives, rash, and allergies, Endocrine: Negative for neck swelling, polydipsia, polyuria, polyphagia, and marked weight changes. 13:07 Back: Positive for decreased range of motion, of the lumbar area. Exam: 13:07 Constitutional: This is a well developed, well nourished patient who is awake, alert, augusta and in no acute distress. Head/Face: Normocephalic, atraumatic. Eyes: Pupils equal round and reactive to light, extra-ocular motions intact. Lids and lashes normal. Conjunctiva and sclera are non-icteric and not injected. Cornea within normal limits. Periorbital areas with no swelling, redness, or edema. ENT: Nares patent. No nasal discharge, no septal abnormalities noted. Tympanic membranes are normal and external auditory canals are clear. Oropharynx with no redness, swelling, or masses, exudates, or evidence of obstruction, uvula midline. Mucous membranes moist. Neck: Trachea midline, no thyromegaly or masses palpated, and no cervical lymphadenopathy. Supple, full range of motion without nuchal rigidity, or vertebral point tenderness. No Meningismus. Chest/axilla: Normal chest wall appearance and motion. Nontender with no deformity. No lesions are appreciated. Cardiovascular: Regular rate and rhythm with a normal S1 and S2. No gallops, murmurs, or rubs. Normal PMI, no JVD. No pulse deficits. Respiratory: Lungs have equal breath sounds bilaterally, clear to auscultation and percussion. No rales, rhonchi or wheezes noted. No increased work of breathing, no retractions or nasal flaring. Abdomen/GI: Soft, non-tender, with normal bowel sounds. No distension or tympany. No guarding or rebound. No evidence of tenderness throughout. Female : Normal external genitalia. Skin: Warm, dry with normal turgor. Normal color with no rashes, no lesions, and no evidence of cellulitis. MS/ Extremity: Pulses equal, no cyanosis. Neurovascular intact. Full, normal range of motion. Neuro: Awake and alert, GCS 15, oriented to person, place, time, and situation. Cranial nerves II-XII grossly intact. Motor strength 5/5 in all extremities. Sensory grossly intact. Cerebellar exam normal. Normal gait. Psych: Awake, alert, with orientation to person, place and time. Behavior, mood, and affect are within normal limits. 13:07 Back: pain, that is mild, ROM is painful, with all movement, normal spinal alignment noted, CVA tenderness, that is mild, vertebral tenderness, is appreciated at L1, L2, L3, L4 and L5. Vital Signs: 12:49 BP 148 / 84; Pulse 82; Resp 19; Temp 97.1(TE); Pulse Ox 100% ; Weight 86.18 kg (R); rb1 Height 4 ft. 11 in. (149.86 cm) (R); Pain 9/10; 13:40 BP 139 / 85; Pulse 87; Resp 20; Pulse Ox 100% on R/A; Pain 9/10; rb1 14:40 BP 127 / 79; Pulse 81; Resp 18; Pulse Ox 99% on R/A; rb1 15:30 BP 128 / 83; Pulse 78; Resp 18; Pulse Ox 100% on R/A; Pain 8/10; rb1 12:49 Body Mass Index 38.37 (86.18 kg, 149.86 cm) rb1 MDM: 12:55 Patient medically screened. [facility] 13:10 Data reviewed: vital signs, nurses notes, radiologic studies, CT scan, plain films. [facility] 05/15 14:04 Order name: Glucose, Ancillary Testing; Complete Time: 14:05 [facility] 05/15 13:06 Order name: CT Lumbar Spine Wo Con; Complete Time: 14:55 [facility] 05/15 13:06 Order name: Pelvis XRAY [facility] 05/15 13:33 Order name: Shoulder Left (2 View) XRAY [facility] 05/15 13:34 Order name: Blood Glucose Level; Complete Time: 13:54 [facility] Administered Medications: 14:06 Drug: [place] 10 mg-325 mg 1 tabs Route: PO; aa5 14:50 Follow up: Response: No adverse reaction; Pain is decreased; Pain 01/08 [facility] 15:13 Drug: KLONopin 0.5 mg Route: PO; rb1 15:45 Follow up: Response: No adverse reaction rb1 Disposition: 05/15/19 14:58 Discharged to Home. Impression: Fall (on) (from) other stairs and steps - wheelchair, Low back pain, Shoulder lesion, unspecified, left shoulder, Wedge compression fracture of second lumbar vertebra - 25%. - Condition is Stable. - Discharge Instructions: Back Pain, Adult, Spinal Compression Fracture, Type 1 Diabetes Mellitus, Diagnosis, Adult, Musculoskeletal Pain, Shoulder Pain, Shoulder Pain, [id number]-[id number], Back Pain, Adult, Rina-se-Ktti, Type 1 Diabetes Mellitus, Diagnosis, Adult, Ihqp-at-Efzz. - Prescriptions for Tylenol- Codeine #3 300-30 mg Oral Tablet - take 2 tablets by ORAL route every 6 hours As needed; 24 tablet. - Medication Reconciliation Form, Thank You Letter, Antibiotic Education, Prescription Opioid Use form. - Follow up: Private Physician; When: 2 - 3 days; Reason: Recheck today's complaints, Continuance of care, Re-evaluation by your physician. Follow up: Leoncio Hedrick MD; When: 2 - 3 days; Reason: Recheck today's complaints, Re-evaluation by your physician. Follow up: Noam Patricia MD; When: 2 - 3 days; Reason: Recheck today's complaints, Re-evaluation by your physician. - Problem is new. - Symptoms have improved. Signatures: Dispatcher [employer] EDSC Luther Vang MD MD augusta Huynh, Naheed, RN RN aa5 Елена Combs, RN RN rb1 Corrections: (The following items were deleted from the chart) 14:59 14:58 05/15/2019 14:58 Discharged to Home. Impression: Fall (on) (from) other stairs augusta and steps - wheelchair; Low back pain; Shoulder lesion, unspecified, left shoulder; Wedge compression fracture of second lumbar vertebra - 25%. Condition is Stable. Discharge Instructions: Back Pain, Adult, Musculoskeletal Pain, Shoulder Pain, Shoulder Pain, Vyiy-ls-Ghln, Back Pain, Adult, Wmlg-mk-Ittn, Type 1 Diabetes Mellitus, Diagnosis, Adult, Type 1 Diabetes Mellitus, Diagnosis, Adult, Fyqf-ju-Ndzb. Prescriptions for Tylenol-Codeine #3 300-30 mg Oral Tablet - take 2 tablets by ORAL route every 6 hours As needed; 24 tablet. and Forms are Medication Reconciliation Form, Thank You Letter, Antibiotic Education, Prescription Opioid Use. Follow up: Private Physician; When: 2 - 3 days; Reason: Recheck today's complaints, Continuance of care, Re-evaluation by your physician. Problem is new. Symptoms have improved. [facility] 16:05 14:59 05/15/2019 14:58 Discharged to Home. Impression: Fall (on) (from) other stairs rb1 and steps - wheelchair; Low back pain; Shoulder lesion, unspecified, left shoulder; Wedge compression fracture of second lumbar vertebra - 25%. Condition is Stable. Discharge Instructions: Back Pain, Adult, Musculoskeletal Pain, Shoulder Pain, Shoulder Pain, Erry-dt-Pzdc, Back Pain, Adult, Cosc-mg-Rzfn, Type 1 Diabetes Mellitus, Diagnosis, Adult, Type 1 Diabetes Mellitus, Diagnosis, Adult, Zqfu-ri-Nwsm, Spinal Compression Fracture. Prescriptions for Tylenol-Codeine #3 300-30 mg Oral Tablet - take 2 tablets by ORAL route every 6 hours As needed; 24 tablet. and Forms are Medication Reconciliation Form, Thank You Letter, Antibiotic Education, Prescription Opioid Use. Follow up: Private Physician; When: 2 - 3 days; Reason: Recheck today's complaints, Continuance of care, Re-evaluation by your physician. Follow up: Leoncio Hedrick; When: 2 - 3 days; Reason: Recheck today's complaints, Re-evaluation by your physician. Follow up: Noam Patricia; When: 2 - 3 days; Reason: Recheck today's complaints, Re-evaluation by your physician. Problem is new. Symptoms have improved. augusta
--- NOTE | 2019-05-15 15:00 | ER ---
Nurse's Notes [facility] Name: Franci Lange Age: 74 yrs Sex: Female : 1945 Arrival Date: 05/15/2019 Time: 12:55 Bed 7 Private MD: Diagnosis: Fall (on) (from) other stairs and steps-wheelchair;Low back pain;Shoulder lesion, unspecified, left shoulder;Wedge compression fracture of second lumbar vertebra-25% Presentation: 05/15 12:49 Presenting complaint: EMS states: Pt. was sitting in the rolling chair when she fell rb1 out of it landing on her buttocks. Denies hitting head or LOC. C/o low back pain and left shoulder pain. Vital signs are stable. EMS reports the pt. is at her normal baseline. Transition of care: [facility]. Onset of symptoms was May 15, 2019 at 12:22. Risk Assessment: Do you want to hurt yourself or someone else? Patient reports no desire to harm self or others. Initial Sepsis Screen: Does the patient meet any 2 criteria? No. Patient's initial sepsis screen is negative. Does the patient have a suspected source of infection? No. Patient's initial sepsis screen is negative. Care prior to arrival: None. 12:49 Method Of Arrival: EMS: [facility] rb1 12:49 Acuity: JAY 3 rb1 Triage Assessment: 12:49 General: Appears in no apparent distress. comfortable, Behavior is calm, cooperative. rb1 Pain: Complains of pain in low back and left shoulder Pain currently is 9 out of 10 on a pain scale. Neuro: Level of Consciousness is awake, alert, obeys commands, Oriented to person, place, situation. Cardiovascular: Capillary refill < 3 seconds is brisk in bilateral fingers. Respiratory: Airway is patent Respiratory effort is even, unlabored, Respiratory pattern is regular, symmetrical. GI: No signs and/or symptoms were reported involving the gastrointestinal system. : No signs and/or symptoms were reported regarding the genitourinary system. Derm: Decubitus located on right EMS reports ulcer on the top of right foot. Musculoskeletal: Range of motion: intact in all extremities. Historical: - Allergies: 12:49 Aspirin; rb1 12:49 cefepime; rb1 12:49 CEPHALOSPORINS; rb1 12:49 Ciprofloxacin; rb1 12:49 Cortizone-10; rb1 12:49 PENICILLINS; rb1 12:49 Phenobarbital; rb1 - Home Meds: 12:49 amlodipine 10 mg tab 1 tab once daily [Active]; Fosamax 70 mg Oral tab 1 tab once wkly rb1 [Active]; furosemide 40 mg Oral tab 1 tab 2 times per day [Active]; Levemir 100 unit/mL subcutaneous soln 36 unit twice a day [Active]; levothyroxine 88 mcg tab 1 tab nightly [Active]; potassium chloride 20 mEq Oral TbER 1 tab 2 times per day [Active]; prednisone 30 mg Oral tab 1 tab once daily [Active]; pyridostigmine bromide 60 mg Oral tab 1 tab 3 times per day [Active]; ramipril 10 mg Oral cap 1 cap once daily [Active]; rosuvastatin 20 mg Oral tab 1 tab once daily [Active]; sertraline 25 mg Oral tab 1 tab once daily [Active]; Trulicity 1.5 mg/0.5 mL subcutaneous pnij 0.5 mL once wkly [Active]; 12:49 clonazepam Oral [Active]; aa5 - PMHx: 12:49 CHF; Depression; Diabetes - IDDM; High Cholesterol; Hypertension; Hypothyroidism; rb1 Myasthenia Gravis; Myocardial infarction; Osteoporosis; - Immunization history:: Adult Immunizations up to date. - Social history:: Smoking status: Patient/guardian denies using tobacco. - Ebola Screening: : Patient negative for fever greater than or equal to 101.5 degrees Fahrenheit, and additional compatible Ebola Virus Disease symptoms. - Family history:: not pertinent. Screenin:49 Abuse screen: Denies threats or abuse. Nutritional screening: No deficits noted. rb1 Tuberculosis screening: No symptoms or risk factors identified. Fall Risk Fall in past 12 months (25 points). Secondary diagnosis (15 points) impaired mobility, No IV (0 pts). Ambulatory Aid- Crutches/Cane/Walker (15 pts). Gait- Impaired (20 pts.). Mental Status- Oriented to own ability (0 pts). Total Badillo Fall Scale indicates High Risk Score (45 or more points). Fall prevention measures have been instituted. Side Rails Up X 2 Placed Close to Nursing Station 1:1 Attendant Assigned Frequent Obs/Assessments Occuring As available patient and family educated on Fall Prevention Program and Strategies. Assessment: 12:49 General: See triage assessment. rb1 13:40 Reassessment: Patient appears in no apparent distress at this time. Patient and/or rb1 family updated on plan of care and expected duration. Pain level reassessed. Patient is alert, oriented x 3, equal unlabored respirations, skin warm/dry/pink. Family at the bedside. 14:40 Reassessment: Patient appears in no apparent distress at this time. No changes from rb1 previously documented assessment. 15:28 Reassessment: Gave report to Tessie at [facility]. Information from the [facility] was given. rb1 All questions asked and answered. 15:30 Reassessment: Discharge pending due to needing to go home to get his car so he rb1 can transport the pt. back to [facility]. reports it will take about 20 minutes. 16:00 Reassessment: Patient appears in no apparent distress at this time. Patient and/or rb1 family updated on plan of care and expected duration. Pain level reassessed. Patient is alert, oriented x 3, equal unlabored respirations, skin warm/dry/pink. Vital Signs: 12:49 BP 148 / 84; Pulse 82; Resp 19; Temp 97.1(TE); Pulse Ox 100% ; Weight 86.18 kg (R); rb1 Height 4 ft. 11 in. (149.86 cm) (R); Pain 9/10; 13:40 BP 139 / 85; Pulse 87; Resp 20; Pulse Ox 100% on R/A; Pain 9/10; rb1 14:40 BP 127 / 79; Pulse 81; Resp 18; Pulse Ox 99% on R/A; rb1 15:30 BP 128 / 83; Pulse 78; Resp 18; Pulse Ox 100% on R/A; Pain 8/10; rb1 12:49 Body Mass Index 38.37 (86.18 kg, 149.86 cm) rb1 ED Course: 12:49 Arm band placed on right wrist. rb1 12:49 Patient has correct armband on for positive identification. Bed in low position. Call rb1 light in reach. Side rails up X2. Pulse ox on. NIBP on. 12:55 Patient arrived in ED. [place] 12:55 Luther Vang MD is Attending Physician. [place] 12:58 Елена Combs, RENAY is Primary Nurse. rb1 13:03 Triage completed. rb1 13:34 CT Lumbar Spine Wo Con In Process Unspecified. EDMS 13:34 CT completed. Patient tolerated procedure well. Patient moved to radiology. bq 13:54 X-ray(s) taken. Patient maintains SpO2 saturation greater than 95% on room air. jp3 14:36 Pelvis XRAY In Process Unspecified. EDMS 14:36 Shoulder Left (2 View) XRAY In Process Unspecified. EDMS 14:59 Leoncio Hedrick MD is Referral Physician. [facility] 14:59 Noam Patricia MD is Referral Physician. [place] 15:38 No provider procedures requiring assistance completed. Patient did not have IV access rb1 during this emergency room visit. Administered Medications: 14:06 Drug: [place] 10 mg-325 mg 1 tabs Route: PO; aa5 14:50 Follow up: Response: No adverse reaction; Pain is decreased; Pain 01/08 rb1 15:13 Drug: KLONopin 0.5 mg Route: PO; rb1 15:45 Follow up: Response: No adverse reaction rb1 Intake: Outcome: 14:58 Discharge ordered by . augusta 16:05 Patient left the ED. rb1 16:05 Discharged to home via wheelchair, with significant other. rb1 16:05 Condition: stable 16:05 Discharge instructions given to patient, Instructed on discharge instructions, follow up and referral plans. medication usage, Demonstrated understanding of instructions, follow-up care, medications, Prescriptions given X 1, Per 's request, Dr. Vang also sent a written order for Herrera Rodgers to administer prescribed medication. reports that the facility will not administer the medication without a written order. Signatures: Dispatcher [employer] EDLuther Crowder MD MD cha Quilty, Betty Naheed Huynh, RN RN aa5 Елена Combs, RN RN rb1 Yared Stacy jp3 Corrections: (The following items were deleted from the chart) 15:04 12:49 General: See triage assessment. aa5 rb1
[2019-05-15] MEDS ORDERED: clonazePAM 0.5 MG TAB ONE (15:15)
--- NOTE | 2019-05-15 16:16 | RAD REPORT ---
EXAM DESCRIPTION: RAD - Pelvis - 05/15/2019 2:36 pm CLINICAL HISTORY: Fall, pelvic pain COMPARISON: Pelvis December 2010 TECHNIQUE: AP imaging of the pelvis was obtained. FINDINGS: No fracture of the bony pelvis. No fracture, dislocation or other acute hip joint finding. No significant SI joint findings. Sacral ala assessment is limited due to degenerative change and overlying bowel. No soft tissue abnormality. Radiopaque tubing overlies the abdomen possibly shunt tubing. IMPRESSION: Negative pelvis for acute or significant findings.
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
[2019-05-15 16:33] VITALS: BP 128/83; O2SAT 100
== END 2019-05-15 16:05 | disposition home or self-care (01) ==
LOC: ER 12:51
DX: S32.020A Wedge compression fracture of second lumbar vertebra, initial encounter for closed fracture (principal); M75.92 Shoulder lesion, unspecified, left shoulder; W10.9XXA Fall (on) (from) unspecified stairs and steps, initial encounter; Y93.89 Activity, other specified; Y92.9 Unspecified place or not applicable; I10 Essential (primary) hypertension; E03.9 Hypothyroidism, unspecified; E78.00 Pure hypercholesterolemia, unspecified; E11.9 Type 2 diabetes mellitus without complications; Z79.4 Long term (current) use of insulin; F32.9 Major depressive disorder, single episode, unspecified; I25.2 Old myocardial infarction; Z88.0 Allergy status to penicillin; Z88.3 Allergy status to other anti-infective agents; Z88.5 Allergy status to narcotic agent; Z88.6 Allergy status to analgesic agent; Z88.8 Allergy status to other drugs, medicaments and biological substances
CPT/HCPCS: 72131; 72170; 82947; 99284

== ENCOUNTER 2019-06-18 21:47 | Emergency (ER) | payer OTHER ==
--- OUTSIDE RECORDS SUMMARY | 2019-06-18 21:51 | XMS REPORT ---
:1945 Author Organization [facility] Address [address] [place] [address] Dr. Tillman [address] [place] [id number] Care Team Providers Name Role Phone RUMA SANTANA Unavailable Unavailable Problems This patient has no known problems. Allergies, Adverse Reactions, Alerts This patient has no known allergies or adverse reactions. Medications This patient has no known medications. Encounters Start End Encounter Admission Attending Care Care Encounter Date/Time Date/Time Type Type Clinicians Facility Department ID 2019-02-05 Inpatient [facility] [id number] 08:54:00 2018-12-24 Inpatient U [facility] [id number] 18:32:00 2018-08-16 Inpatient E [facility] [id number] 23:35:00 2018-11-29 2018-11-29 Emergency E [facility] [id number] 07:33:00 07:33:00 2018-09-21 2018-09-21 Outpatient U [facility] [id number] 18:06:00 18:06:00 2018-09-12 2018-09-10 Inpatient U [facility] [id number] 15:01:00 00:20:00 2018-09-09 2018-09-08 Inpatient [facility] MED [id number] 11:57:00 09:51:00 Results Test Description Test Time Test Comments Text Results Atomic Results Result Comments TISSUE EXAM 2017-02-26 15:21:00 Surgical Pathology Report Case: [id number] Authorizing Provider: Ruma Santana MD Collected: 02/24/2017 [...] SERRATED POLYP/ADENOMA Signing Pathologist Direct Phone Line: [phone] signed by Kenji Hercules MD on 02/26/2017 at 3:21 [id number] x 3Diarrhea, rule out microscopic colitisA. Right/ascending [...] (BEAKER) (test 144 mg/dL 70-110 TESTED AT [facility] [address] [facility] pets=[id number]) [facility] [address] POCT-GLUCOSE [id number] 14:21:00 Test Item Value Reference Range Comments POC-GLUCOSE METER (BEAKER) 118 mg/dL 70-110 TESTED AT [facility] [address] (test xmzk=[id number]) [facility] [id number]
--- OUTSIDE RECORDS SUMMARY | 2019-06-18 21:51 | XMS REPORT | Summary of Care ---
:1945 Author Name Cristina Meraz R.N. Address Unavailable Unavailable , Care Team Providers Name Role Phone NOELLE Still, SHEKHAR Unavailable Unavailable BRAD Still, MAN Unavailable Unavailable Kt Mcclure, Cristina Unavailable Unavailable MEHNAZ RUIZ MD Unavailable Unavailable NOELLE DANG, SHEKHAR Unavailable Unavailable Unavailable Unavailable Unavailable Functional Status Name Dates Details Functional status health issues are not documented Status: Name Dates Details Cognitive status health issues are not documented Status: Problems Name Dates Details Increased Pressure Hydrocephalus (331.3) Status: Active Myasthenia gravis in crisis (358.01, G70.01) Status: Active Myasthenia gravis (358.00, G70.00) Status: Active Osteoporosis (733.00, M81.0) Status: Active Osteopenia (733.90, M85.80) Status: Active Pneumonia (486, J18.9) Status: Active Depression (311, F32.9) Status: Active Arthritis (716.90, M19.90) Status: Active Back pain (724.5, M54.9) Status: Active Encounter for care related to Port-a-Cath (V58.81, Z45.2) Status: Active Medications Name Dates Details Crestor 20 MG Oral Tablet TAKE 1 TABLET DAILY Refills: 0 Start : 21-Mar-2011 Active HumuLIN N 100 UNIT/ML Subcutaneous Suspension INJECT 8-10 UNIT TWICE DAILY depending on BG levels Refills: 0 Start : 21-Mar-2011 Active Calcium Carbonate Antacid 500 MG Oral Tablet Chewable 3 times a day as needed for indigestion Refills: 0 Start : 21-Mar-2011 Active Mestinon 60 MG Oral Tablet Refills: 0 Active Trulicity 0.75 MG/0.5ML Subcutaneous Solution Pen-injector Refills: 0 Active Levothyroxine Sodium 88 MCG Oral Tablet Refills: 0 Active Potassium TABS Refills: 0 Active Furosemide 20 MG Oral Tablet Refills: 0 Active Ramipril 10 MG Oral Capsule Refills: 0 Active amLODIPine Besylate 5 MG Oral Tablet Refills: 0 Active Lantus SOLN Refills: 0 Active Gabapentin 100 MG TABS Refills: 0 Active Plavix 75 MG Oral Tablet Refills: 0 Active rOPINIRole HCl - 2 MG Oral Tablet TAKE 1 TABLET AT BEDTIME. Refills: 0 MAN SALINAS M.D. Start : 21-Sep-2018 Active predniSONE 20 MG Oral Tablet TAKE 1 TABLET DAILY Quantity: 30 Refills: 5 SHEKHAR DRAKE M.D. Start : 08-Oct-2018 Active Sertraline HCl - 25 MG Oral Tablet TAKE 1 TABLET DAILY. Quantity: 30 Refills: 5 SHEKHAR DRAKE M.D. Start : 12-Nov-2018 Active Pyridostigmine [place] 60 MG Oral Tablet TAKE 1 TABLET BY MOUTH THREE TIMES A DAY Quantity: 90 Refills: 5 SHEKHAR DRAKE M.D. Start : 23-Nov-2018 Active Allergies and Adverse Reactions Name Dates Details Aspirin TABS (Allergy) Status: Active Cefepime HCl SOLN (Allergy) Status: Active ciprofloxacin (Allergy) Status: Active Ciprofloxacin HCl TABS (Allergy) Status: Active Cortizone-10 (Allergy) Status: Active Erythromycin Derivatives (Allergy) Status: Active Penicillins (Allergy) Status: Active PHENobarbital TABS (Allergy) Status: Active Past Medical History Name Dates Details History of diabetes mellitus (V12.29, Z86.39) Status: Resolved History of essential hypertension (V12.59, Z86.79) Status: Resolved History of hyperlipidemia (V12.29, Z86.39) Status: Resolved History of meningioma (V12.41, Z86.018) Status: Resolved Procedures Procedure Dates Details History of Ventriculoperitoneal shunt creation Completed Immunization Name Dates Details Immunizations not documented Social History Name Dates Details Unknown if ever smoked Vital Signs Date Test Result Details [id number] BP Systolic 148 mm[Hg] Status: BP Diastolic 62 mm[Hg] Status: Height 59 in Status: Temperature 98.5 f Status: Heart Rate 72 /min Status: [id number] Height 59 in Status: Temperature 98.5 f Status: Results Date Description Value Details Results not documented Plan of Care Name Dates Details Planned Observations Planned Goals not documented Planned Encounters Appointment; SHEKHAR DRAKE M.D. On: 08-Nov-2019 9:30 Interventions Provided Discussion/SummaryGuideline Used: Other: paperwork Neuro Bhavna from [facility] is calling to get the status of the paper work that needs to becompleted by MD Meza. [phone] ext [phone]. Additional Information: task sent to Neuro [facility] Clinical Staff. Instructions Name Dates Details Instructions not documented Encounters Appointment; SHEKHAR DRAKE M.D. On: 21-Sep-2018 10:30 Encounter Diagnosis: Problem not documented Appointment; SHEKHAR DRAKE M.D. On: 14-Oct-2018 11:30 Encounter Diagnosis: Problem not documented Appointment; SHEKHAR DRAKE M.D. On: 11-Nov-2018 11:00 Encounter Diagnosis: Problem not documented Appointment; SHEKHAR DRAKE M.D. On: 25-Jan-2019 8:00 Encounter Diagnosis: Problem not documented Appointment; SHEKHAR DRAKE M.D. On: 05-May-2019 11:30 Encounter Diagnosis: Problem not documented
--- NOTE | 2019-06-19 00:51 | EDPHYS ---
Physician Documentation [facility] Name: Franci Lange Age: 74 yrs Sex: Female : 1945 Arrival Date: 06/18/2019 Time: 21:50 Bed 18 Private MD: ED Physician Luther Vang HPI: 06/18 22:21 This 74 yrs old Female presents to ER via EMS with complaints of right jmm shoulder pain, lower back pain. 22:21 Details of fall: The patient fell from seated position, out of a chair. Onset: The jmm symptoms/episode began/occurred acutely, just prior to arrival. Associated injuries: The patient sustained shoulder, back, neck. This is a 74 year old female with a history of dm, CHF, HLP that presents to the ED with complaints of right sided neck pain, shoulder pain, and lower back pain. Patient had an unwitnessed fall just prior to arrival. EMS states most likely slid off a chair. Patient cannot recall how the event occurred. . Historical: - Allergies: 22:01 Aspirin; 22:01 cefepime; 22:01 CEPHALOSPORINS; 22:01 Ciprofloxacin; 22:01 Cortizone-10; 22:01 PENICILLINS; 22:01 Phenobarbital; - Home Meds: 22:17 amlodipine 10 mg tab 1 tab once daily [Active]; clonazepam 0.5 mg oral tab 1 tab daily [Active]; famotidine 20 mg Oral tab 1 tab once daily [Active]; furosemide 40 mg Oral tab 1 tab once daily [Active]; furosemide 20 mg Oral tab 1 tab nightly [Active]; melatonin 3 mg Oral tab 2 cap nightly [Active]; Levemir 100 unit/mL subcutaneous soln 25 unit nightly [Active]; levothyroxine 88 mcg tab 1 tab once daily [Active]; Novolog 10 units Sub-Q soln before meals [Active]; potassium chloride 10 mEq oral cpER 1 cap 3 times per day [Active]; prednisone 20 mg oral tab 1 tab once daily [Active]; pyridostigmine bromide 60 mg Oral tab 1 tab 3 times per day [Active]; rosuvastatin 20 mg Oral tab 1 tab nightly [Active]; sertraline 25 mg Oral tab 1 tab once daily [Active]; - PMHx: 22:01 CHF; Depression; Diabetes - IDDM; High Cholesterol; Hypertension; Hypothyroidism; wh Myasthenia Gravis; Myocardial infarction; Osteoporosis; - Immunization history:: Adult Immunizations up to date. - Social history:: Smoking status: Patient/guardian denies using. - Ebola Screening: : Patient negative for fever greater than or equal to 101.5 degrees Fahrenheit, and additional compatible Ebola Virus Disease symptoms Patient denies exposure to infectious person. ROS: 22:21 Constitutional: Negative for fever, chills, and weight loss, Cardiovascular: Negative jmm for chest pain, palpitations, and edema, Respiratory: Negative for shortness of breath, cough, wheezing, and pleuritic chest pain. 22:21 Neck: Positive for pain with movement. 22:21 Back: Positive for pain with movement. 22:21 All other systems are negative. Exam: 22:21 Constitutional: This is a well developed, well nourished patient who is awake, alert, jmm and in no acute distress. Head/Face: atraumatic. Eyes: EOMI, no conjunctival erythema appreciated ENT: Moist Mucus Membranes 22:21 Neck: C-spine: appears grossly normal. 22:21 Back: right trapezius ttp, right lower lumbar ttp, no midline tenderness is appreciated. 22:21 Musculoskeletal/extremity: Tendon exam: Nails: painful rom noted to the right shoulder, no obvious deformity appreciate,d compartments are soft, full radial pulse, NVI. 22:21 Skin: Appearance: Color: normal in color. 22:21 Neuro: Orientation: is normal, Mentation: is normal, Memory: is normal. 22:21 Psych: Behavior/mood is pleasant, cooperative. Vital Signs: 21:57 BP 169 / 63; Pulse 70; Resp 18; Temp 97.5; Pulse Ox 100% on R/A; Weight 72.57 kg; Height 4 ft. 11 in. (149.86 cm); 23:00 BP 172 / 71; Pulse 76; Resp 18; Pulse Ox 99% on R/A; 06/19 00:30 BP 158 / 64; Pulse 72; Resp 18; Pulse Ox 99% on R/A; 06/18 21:57 Body Mass Index 32.32 (72.57 kg, 149.86 cm) MDM: 06/18 21:53 Patient medically screened. [facility] 06/19 00:44 Data reviewed: vital signs, nurses notes. Counseling: I had a detailed discussion with salazar the patient and/or guardian regarding: the historical points, exam findings, and any diagnostic results supporting the discharge/admit diagnosis, radiology results, the need for outpatient follow up, to return to the emergency department if symptoms worsen or persist or if there are any questions or concerns that arise at home. 06/18 22:18 Order name: Shoulder Right (2 View) XRAY [facility] 06/18 22:18 Order name: Lumbar Spine (3 Views) XRAY [facility] 06/18 22:20 Order name: CT Head C Spine [facility] Administered Medications: 06/18 23:16 CANCELLED (no constipated): Mineral Oil 30 ml PO once [facility] 06/19 00:55 Drug: [place] 5 mg-325 mg 1 tabs Route: PO; 01:02 Follow up: Response: No adverse reaction; Pain is decreased; RASS: Alert and Calm (0) Disposition: 10:04 Co-signature as Attending Physician, Luther Vang MD I agree with the assessment and [facility] plan of care. Disposition: 06/19/19 00:50 Discharged to Home. Impression: Strain of unspecified muscle, fascia and tendon at shoulder and upper arm level, unspecified arm, Fall (on) (from) other stairs and steps, Superficial injury of head. - Condition is Stable. - Discharge Instructions: Head Injury, Adult. - Prescriptions for Ultracet 37.5- 325 mg Oral Tablet - take 1 tablet by ORAL route every 6 hours - for up to 5 days; do not exceed 8 tablets per day.; 20 tablet. - Medication Reconciliation Form, Thank You Letter, Antibiotic Education, Prescription Opioid Use form. - Follow up: Private Physician; When: 2 - 3 days; Reason: Recheck today's complaints, Continuance of care, Re-evaluation by your physician. Signatures: Dispatcher [employer] Luther Palomares MD MD cha Mickail, Joel, PA PA jmm Habalo, Winsy Corrections: (The following items were deleted from the chart) 06/18 23:16 23:15 Mineral Oil 30 ml PO once ordered. hilary hilary 06/19 01:05 00:50 06/19/2019 00:50 Discharged to Home. Impression: Strain of unspecified muscle, wh fascia and tendon at shoulder and upper arm level, unspecified arm; Fall (on) (from) other stairs and steps; Superficial injury of head. Condition is Stable. Forms are Medication Reconciliation Form, Thank You Letter, Antibiotic Education, Prescription Opioid Use. Follow up: Private Physician; When: 2 - 3 days; Reason: Recheck today's complaints, Continuance of care, Re-evaluation by your physician. salazar
--- NOTE | 2019-06-19 00:51 | ER ---
Nurse's Notes [facility] Name: Franci Lange Age: 74 yrs Sex: Female : 1945 Arrival Date: 06/18/2019 Time: 21:50 Bed 18 Private MD: Diagnosis: Strain of unspecified muscle, fascia and tendon at shoulder and upper arm level, unspecified arm;Fall (on) (from) other stairs and steps;Superficial injury of head Presentation: 06/18 21:50 Presenting complaint: EMS states: Pt was sitting on a recliner when she slid off the chair. EMS states it is unwitnessed but is more likely she slid from the chair than fell. Pt denies LOC. Transition of care: patient was received from another setting of care (long-term care facility), [facility]. Onset of symptoms was June 18, 2019. Risk Assessment: Do you want to hurt yourself or someone else? Patient reports no desire to harm self or others. Initial Sepsis Screen: Does the patient meet any 2 criteria? No. Patient's initial sepsis screen is negative. Does the patient have a suspected source of infection? No. Patient's initial sepsis screen is negative. Care prior to arrival: None. 21:50 Method Of Arrival: EMS: [facility] 21:50 Acuity: JAY 3 Historical: - Allergies: 22:01 Aspirin; 22:01 cefepime; 22:01 CEPHALOSPORINS; 22:01 Ciprofloxacin; 22:01 Cortizone-10; 22:01 PENICILLINS; 22:01 Phenobarbital; - Home Meds: 22:17 amlodipine 10 mg tab 1 tab once daily [Active]; clonazepam 0.5 mg oral tab 1 tab daily [Active]; famotidine 20 mg Oral tab 1 tab once daily [Active]; furosemide 40 mg Oral tab 1 tab once daily [Active]; furosemide 20 mg Oral tab 1 tab nightly [Active]; melatonin 3 mg Oral tab 2 cap nightly [Active]; Levemir 100 unit/mL subcutaneous soln 25 unit nightly [Active]; levothyroxine 88 mcg tab 1 tab once daily [Active]; Novolog 10 units Sub-Q soln before meals [Active]; potassium chloride 10 mEq oral cpER 1 cap 3 times per day [Active]; prednisone 20 mg oral tab 1 tab once daily [Active]; pyridostigmine bromide 60 mg Oral tab 1 tab 3 times per day [Active]; rosuvastatin 20 mg Oral tab 1 tab nightly [Active]; sertraline 25 mg Oral tab 1 tab once daily [Active]; - PMHx: 22:01 CHF; Depression; Diabetes - IDDM; High Cholesterol; Hypertension; Hypothyroidism; wh Myasthenia Gravis; Myocardial infarction; Osteoporosis; - Immunization history:: Adult Immunizations up to date. - Social history:: Smoking status: Patient/guardian denies using. - Ebola Screening: : Patient negative for fever greater than or equal to 101.5 degrees Fahrenheit, and additional compatible Ebola Virus Disease symptoms Patient denies exposure to infectious person. Screenin:59 Abuse screen: Denies threats or abuse. Denies injuries from another. Nutritional wh screening: No deficits noted. Tuberculosis screening: No symptoms or risk factors identified. Fall Risk None identified. Assessment: 22:09 General: Appears in no apparent distress. Behavior is calm, cooperative, appropriate wh for age. Pain: Complains of pain in Right Shoulder Pain radiates to back Pain currently is 5 out of 10 on a pain scale. Neuro: Level of Consciousness is awake, alert, obeys commands, Oriented to person, place, time. Cardiovascular: Heart tones S1 S2. Respiratory: Breath sounds are clear bilaterally. GI: Abdomen is flat, non-distended. : No signs and/or symptoms were reported regarding the genitourinary system. EENT: No signs and/or symptoms were reported regarding the EENT system. Derm: Skin is intact, is healthy with good turgor. Musculoskeletal: Circulation, motion, and sensation intact. 23:30 Reassessment: Patient appears in no apparent distress at this time. No changes from previously documented assessment. Patient and/or family updated on plan of care and expected duration. Pain level reassessed. Patient is alert, oriented x 3, equal unlabored respirations, skin warm/dry/pink. 06/19 01:05 Reassessment: Patient appears in no apparent distress at this time. No changes from previously documented assessment. Patient and/or family updated on plan of care and expected duration. Pain level reassessed. Patient is alert, oriented x 3, equal unlabored respirations, skin warm/dry/pink. Patient denies pain at this time. Vital Signs: 06/18 21:57 BP 169 / 63; Pulse 70; Resp 18; Temp 97.5; Pulse Ox 100% on R/A; Weight 72.57 kg; Height 4 ft. 11 in. (149.86 cm); 23:00 BP 172 / 71; Pulse 76; Resp 18; Pulse Ox 99% on R/A; 06/19 00:30 BP 158 / 64; Pulse 72; Resp 18; Pulse Ox 99% on R/A; 06/18 21:57 Body Mass Index 32.32 (72.57 kg, 149.86 cm) ED Course: 06/18 21:50 Patient arrived in ED. 21:51 Crispin Rowell PA is PHCP. [facility] 21:51 Luther Vang MD is Attending Physician. [facility] 21:54 Triage completed. 22:02 Arm band placed on right wrist. 22:02 Patient has correct armband on for positive identification. Bed in low position. Call light in reach. Side rails up X 1. Pulse ox on. NIBP on. 22:09 Shilpi Shrestha is Primary Nurse. 23:14 CT Head C Spine In Process Unspecified. EDMS 23:20 Shoulder Right (2 View) XRAY In Process Unspecified. EDMS 23:20 Lumbar Spine (3 Views) XRAY In Process Unspecified. [facility] 06/19 01:03 No provider procedures requiring assistance completed. Patient did not have IV access during this emergency room visit. Administered Medications: 06/18 23:16 CANCELLED (no constipated): Mineral Oil 30 ml PO once [facility] 06/19 00:55 Drug: Spencer 5 mg-325 mg 1 tabs Route: PO; 01:02 Follow up: Response: No adverse reaction; Pain is decreased; RASS: Alert and Calm (0) Outcome: 00:50 Discharge ordered by . [facility] 01:03 Discharged to home via wheelchair, with significant other. 01:03 Condition: stable 01:03 Discharge instructions given to patient, family, Instructed on discharge instructions, follow up and referral plans. medication usage, POC Demonstrated understanding of instructions, follow-up care, medications, POC Prescriptions given X 1. 01:05 Patient left the ED. Signatures: Dispatcher [employer] EDCrispin Patrick PA PA jmm Fady, Shilpi wh
[2019-06-19] MEDS ORDERED: HYDROCODONE/APAP 5/325 MG TAB ONE (00:57)
[2019-06-19 01:11] VITALS: TEMP 97.5
[2019-06-19 01:12] VITALS: O2SAT 99
[2019-06-19 01:19] VITALS: BP 158/64
--- NOTE | 2019-06-19 09:05 | RAD REPORT ---
EXAM DESCRIPTION: Shoulder Right 2 View - 06/18/2019 11:20 pm CLINICAL HISTORY: Fall, right shoulder pain COMPARISON: November 2011 TECHNIQUE: Internal and external rotation views of the right shoulder were obtained. FINDINGS: There is no fracture or dislocation. AC joint degenerative changes are present. No signif icant spurring. Degenerative changes are seen along the undersurface of the acromion. Acromial sarath l joint space has narrowed since prior imaging. No abnormal calcifications in soft tissues. Ribs and parenchyma of the upper right chest intact. No acute or suspicious findings. IMPRESSION: Negative two-view right shoulder examination for acute finding. Right shoulder degenerative changes are present mildly progressive from 2012.
--- NOTE | 2019-06-19 09:17 | RAD REPORT ---
EXAM DESCRIPTION: RAD - Lumbar Spine 3 Views - 06/18/2019 11:20 pm CLINICAL HISTORY: Fall, trauma, pelvic pain COMPARISON: CT lumbar spine May 15, 2019 FINDINGS: A three-view lumbar spine examination was performed. L2 body shows approximately 25% compr ession fracture deformity along the superior endplate. Posterior wall height is preserved and is not encroach into the central canal. Degree of compression matches the CT study. Remaining lumbar bodies are normal in height. No fracture or acute bony process seen. L1-2 and L5-S1 disc space narrowing present and stable. Prom inent facet joint degenerative change again noted. No pars defects identified. Dense arterial tree ca lcification without aneurysm. IMPRESSION: Approximately 25% of old L2 compression fracture. Advanced facet degenerative change. No acute lumbar finding seen.
--- NOTE | 2019-06-20 14:42 | RAD REPORT ---
EXAM DESCRIPTION: CT - CTHCSPWOC - 06/19/2019 5:07 am CLINICAL HISTORY: Trauma. COMPARISON: 02/05/2019 TECHNIQUE: CT scan of the brain and cervical spine without IV contrast. This exam was performed acco rding to our departmental dose-optimization program, which includes automated exposure control, adjus tment of the mA and/or kV according to patient size and/or use of iterative reconstruction technique. FINDINGS: BRAIN: There is a stable left frontal approach [employer] shunt with the tip in the right lateral ventricle. 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 These findings are unchanged since prior study. No acute hemorrhage. CERVICAL SPINE: No acute cervical fracture or prevertebral soft tissue swelling. The cervical alignment is maintained . Unchanged anterior osteophytosis throughout the cervical spine with preservation of the disc spaces . The facet joints are preserved. There are multilevel disc bulges throughout the cervical spine. IMPRESSION: 1. Stable [employer]GER shunt catheter and suprasellar mass. 2. No acute intracranial hemorrhage. 3. No acute cervical fracture or subluxation. Electronically signed by: Misael Cadet MD 06/18/2019 11:39 PM HUMAN RESOURCE ADVISER Due to temporary technical issues with the PACS/Fluency reporting system, reports are being signed by the in house radiologist as a courtesy to ensure prompt reporting. The interpreting radiologist is f ully responsible for the content of the report.
== END 2019-06-19 01:05 | disposition home or self-care (01) ==
LOC: ER 21:47
DX: S00.90XA Unspecified superficial injury of unspecified part of head, initial encounter (principal); S46.911A Strain of unspecified muscle, fascia and tendon at shoulder and upper arm level, right arm, initial encounter; W07.XXXA Fall from chair, initial encounter; Y93.9 Activity, unspecified; Y92.129 Unspecified place in nursing home as the place of occurrence of the external cause; Y92.9 Unspecified place or not applicable; Z88.0 Allergy status to penicillin; Z88.1 Allergy status to other antibiotic agents; E03.9 Hypothyroidism, unspecified; E11.9 Type 2 diabetes mellitus without complications; I50.9 Heart failure, unspecified; E78.00 Pure hypercholesterolemia, unspecified; G70.00 Myasthenia gravis without (acute) exacerbation
CPT/HCPCS: 70450; 72100; 72125; 99284

== ENCOUNTER 2019-06-25 16:55 | Emergency (ER) | payer OTHER ==
--- OUTSIDE RECORDS SUMMARY | 2019-06-25 16:58 | XMS REPORT ---
:1945 Author Organization [facility] Address [address] [place] [address] Dr. Tillman [address] [place] [id number] Care Team Providers Name Role Phone RUMA SANTANA Unavailable Unavailable Problems This patient has no known problems. Allergies, Adverse Reactions, Alerts This patient has no known allergies or adverse reactions. Medications This patient has no known medications. Encounters Start End Encounter Admission Attending Care Care Encounter Date/Time Date/Time Type Type Clinicians Facility Department ID 2019-02-05 Inpatient [facility] [id number] 08:54:00 2018-12-24 Inpatient U [facility] [id number] 18:32:00 2018-08-16 Inpatient E [facility] [id number] 23:35:00 2018-11-29 2018-11-29 Emergency E [facility] [id number] 07:33:00 07:33:00 2018-09-21 2018-09-21 Outpatient U [facility] [id number] 18:06:00 18:06:00 2018-09-12 2018-09-10 Inpatient U [facility] [id number] 15:01:00 00:20:00 2018-09-09 2018-09-08 Inpatient [facility] [id number] 11:57:00 09:51:00 Results Test Description Test Time Test Comments Text Results Atomic Results Result Comments TISSUE EXAM 2017-02-26 15:21:00 Surgical Pathology Report Case: [id number] Authorizing Provider: Ruma Santana MD Collected: 02/24/2017 1559 Ordering Location: [facility] Received: 02/25/2017 0810 Pathologist: Kenji [...] SERRATED POLYP/ADENOMA Signing Pathologist Direct Phone Line: [phone] signed by Kenji Hercules MD on 02/26/2017 at 3:21 [id number] x 3Diarrhea, rule out microscopic colitisA. Right/ascending [...] 144 mg/dL 70-[address] [facility] [address] [facility] [id number][facility] [id number] POCT-GLUCOSE [id number] 14:21:00 Test Item Value Reference Range Comments POC-GLUCOSE METER (BEAKER) 118 mg/dL 70-[address] [facility] [address] (test tegx=[id number]) [facility] [id number]
[2019-06-25] MEDS ORDERED: IBUPROFEN 400 MG TAB ONE (17:36)
[2019-06-25] MEDS ORDERED: IBUPROFEN 100 MG/5 ML UCUP ONE (17:37)
--- NOTE | 2019-06-25 19:32 | RAD REPORT ---
EXAM DESCRIPTION: CT - CTHCSPWOC - 06/25/2019 6:35 pm CLINICAL HISTORY: Trauma, head and neck injury. fall;Pain COMPARISON: No comparisonsHead C Spine Mpr Wo Con dated 06/18/2019; Head C Spine Mpr Wo Con dated 02/05; C Spine Wo Con dated 02/02/2019 TECHNIQUE: Axial 5 mm thick images of the head were obtained. Axial 2 mm thick images of the cervical spine were obtained with sagittal and coronal reconstruction images generated and reviewed. All CT scans are performed using dose optimization technique as appropriate and may include automated exposure control or mA/KV adjustment according to patient size. FINDINGS: CT HEAD WITHOUT CONTRAST: Left frontal approach ventriculostomy tube is again noted, unchanged in position. Areas of encephalom alacia in the right frontal lobe appear stable. 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 No intracranial h emorrhage or hydrocephalus The paranasal sinuses and mastoids are clear. CT CERVICAL SPINE WITHOUT CONTRAST: No fracture or subluxation.Large bridging anterior osteophytes are present involving the cervical spi ne.No prevertebral soft tissues swelling is identified. IMPRESSION: No acute intracranial or cervical spine findings.
--- NOTE | 2019-06-25 19:48 | RAD REPORT ---
EXAM DESCRIPTION: RAD - Shoulder Right 2 View - 06/25/2019 7:38 pm CLINICAL HISTORY: PAIN Fall, pain COMPARISON: Shoulder Right 2 View dated 06/18/2019 FINDINGS: Moderate AC joint and glenohumeral joint arthritic changes are present. High-riding sarath l head is present. No acute fracture evident.
--- NOTE | 2019-06-25 19:49 | RAD REPORT ---
EXAM DESCRIPTION: RAD - Shoulder Left 2 View - 06/25/2019 7:38 pm CLINICAL HISTORY: PAIN COMPARISON: Shoulder Left 2 View dated 05/15/2019 FINDINGS: Moderate degenerative changes are present involving the AC joint. No acute fracture or dis location evident.
--- NOTE | 2019-06-25 19:55 | RAD REPORT ---
EXAM DESCRIPTION: RAD - Elbow Left 3 View - 06/25/2019 7:38 pm CLINICAL HISTORY: PAIN Fall, pain COMPARISON: No comparisons FINDINGS: No fracture or dislocation seen.
--- NOTE | 2019-06-25 20:53 | ER ---
Nurse's Notes [facility] Name: Franci Lange Age: 74 yrs Sex: Female : 1945 Arrival Date: 06/25/2019 Time: 16:59 Bed 26 Private MD: Diagnosis: Fall on same level from slipping, tripping and stumbling with subsequent striking against object Presentation: 06/25 16:59 Presenting complaint: EMS states: pt reports having a fall x2 today, reports during sg first fall had pain in the left shoulder, after the second fall pt complaining of pain in the right shoulder. Pt denies hitting head, [facility] staff report unwitnessed fall but did not appear there was a loss of consciousness or injury to the head. Transition of care: patient was not received from another setting of care. Onset of symptoms was June 25, 2019. Risk Assessment: Do you want to hurt yourself or someone else? Patient reports no desire to harm self or others. Initial Sepsis Screen: Does the patient meet any 2 criteria? No. Patient's initial sepsis screen is negative. Does the patient have a suspected source of infection? No. Patient's initial sepsis screen is negative. Care prior to arrival: None. 16:59 Method Of Arrival: EMS: [facility] 16:59 Method Of Arrival: EMS: [facility] sg 16:59 Acuity: JAY 4 sg Historical: - Allergies: 17:04 Aspirin; sg 17:04 cefepime; sg 17:04 CEPHALOSPORINS; sg 17:04 Ciprofloxacin; sg 17:04 Cortizone-10; sg 17:04 PENICILLINS; sg 17:04 Phenobarbital; sg 17:04 Cortisone; sg - PMHx: 17:04 CHF; Depression; Diabetes - IDDM; High Cholesterol; Hypertension; Hypothyroidism; sg Myasthenia Gravis; Myocardial infarction; Osteoporosis; - Immunization history:: Adult Immunizations up to date. - Coronavirus screen:: The patient has NOT traveled to [place], [place], or [place] in the past 14 days. - Social history:: Smoking status: Patient denies any tobacco usage or history of. - Ebola Screening: : Patient denies exposure to infectious person Patient denies travel to an Ebola-affected area in the 21 days before illness onset. Screenin:11 Abuse screen: Denies threats or abuse. Denies injuries from another. Nutritional sg screening: No deficits noted. Tuberculosis screening: No symptoms or risk factors identified. Never had TB. Fall Risk Fall in past 12 months (25 points). No secondary diagnosis (0 pts). No IV (0 pts). Ambulatory Aid- Crutches/Cane/Walker (15 pts). Gait- Weak (10 pts.). Total Badillo Fall Scale indicates Low Risk Score (25-44 pts). Fall prevention measures have been instituted. Side Rails Up X 2 Frequent Obs/Assesments occuring. Assessment: 17:11 General: Appears in no apparent distress. well groomed, well developed, well nourished, Behavior is calm, cooperative, appropriate for age, drowsy, flat. Pain: Complains of pain in anterior aspect of right shoulder and anterior aspect of left shoulder Quality of pain is described as aching. Neuro: Level of Consciousness is awake, alert, obeys commands, Oriented to person, place, time. Cardiovascular: Capillary refill is brisk in bilateral fingers Patient's skin is warm and dry. Chest pain is denied. Respiratory: Airway is patent Respiratory effort is even, unlabored, Respiratory pattern is regular, symmetrical. GI: No signs and/or symptoms were reported involving the gastrointestinal system. : No signs and/or symptoms were reported regarding the genitourinary system. EENT: No signs and/or symptoms were reported regarding the EENT system. Derm: Skin is pink, warm \T\ dry. Musculoskeletal: Circulation, motion, and sensation intact. Range of motion: limited in right shoulder reports limited in motion due to uncomfortable when moving the right shoulder. 17:52 Reassessment: Patient appears in no apparent distress at this time. xray at bedside at this time. 18:15 Reassessment: Patient appears in no apparent distress at this time. pt returned from radiology at this time. 19:54 Reassessment: Patient appears in no apparent distress at this time. awaiting for radiology report. 20:30 Reassessment: Patient appears in no apparent distress at this time. Patient and/or ss family updated on plan of care and expected duration. Pain level reassessed. 21:20 Reassessment: Cleaned patient of urinary incontinence. Vital Signs: 17:01 BP 141 / 55; Pulse 66; Resp 18; Temp 97.7; Pulse Ox 97% on R/A; Pain 4/10; sg 19:55 BP 137 / 56; Pulse 80; Resp 16; Pulse Ox 96% ; ss 21:20 BP 150 / 66; Pulse 70; Resp 16; Pulse Ox 98% on R/A; ss ED Course: 16:59 Patient arrived in ED. sg 17:01 Triage completed. sg 17:01 Arm band placed on. sg 17:07 Eulogio Yoder MD is Attending Physician. kdr 17:10 Dutch Medley, RN is Primary Nurse. sg 17:11 Awaiting for x-ray. sg 18:35 CT Head C Spine In Process Unspecified. EDMS 19:08 Rupinder Hare FNP-C is PHCP. snw 19:39 Shoulder Left (2 View) XRAY In Process Unspecified. EDMS 19:39 Shoulder Right (2 View) XRAY In Process Unspecified. EDMS 19:39 Elbow Left 3 View XRAY In Process Unspecified. EDMS 19:55 Patient has correct armband on for positive identification. Bed in low position. Call ss light in reach. 21:29 No provider procedures requiring assistance completed. Patient did not have IV access ss during this emergency room visit. Administered Medications: 17:40 Drug: Ibuprofen 600 mg Route: PO; sg Outcome: 20:53 Discharge ordered by . snw 21:29 Discharged to [facility] with . Report given to [facility] staff member ss 21:29 Condition: good 21:29 Discharge instructions given to patient, family, Instructed on discharge instructions, follow up and referral plans. medication usage, Demonstrated understanding of instructions, follow-up care, medications, Prescriptions given X 1. 21:34 Patient left the ED. ss Signatures: Dispatcher [employer] EDGA Dutch Medley, RN RN Eulogio Yoder MD MD [facility] Rupinder Hare FNP-C DIALYSIS RN-Sintia Adamson RN RN ss Corrections: (The following items were deleted from the chart) 17:13 17:11 Fall Risk None identified. sg sg 17:46 17:11 General: Appears in no apparent distress. well groomed, well developed, well sg nourished, Behavior is calm, cooperative, appropriate for age, sg
--- NOTE | 2019-06-25 20:54 | EDPHYS ---
Physician Documentation [facility] Name: Franci Lange Age: 74 yrs Sex: Female : 1945 Arrival Date: 06/25/2019 Time: 16:59 Bed 26 Private MD: ED Physician Eulogio Yoder HPI: 06/25 17:31 This 74 yrs old Female presents to ER via EMS with complaints of Shoulder kdr Pain - bilateral. 17:31 The patient or guardian complains of decreased range of motion, an injury, pain, that kdr is acute, tenderness. right trapezius and left trapezius. Context: The problem was sustained at a snf, resulted from a fall, while walking, The patient experiences decreased range of motion, when attempts to raise arm, The patient reports no obvious deformity. Onset: The symptoms/episode began/occurred suddenly, just prior to arrival, today. Modifying factors: the symptoms are alleviated by remaining still, The symptoms are aggravated by movement, rotation of arm. Associated signs and symptoms: The patient has no apparent associated signs or symptoms. Severity of symptoms: At their worst the symptoms were mild, in the emergency department the symptoms are unchanged. Treatment prior to arrival includes: no previous treatment. The patient has not experienced similar symptoms in the past. The patient has not recently seen a physician. Historical: - Allergies: 17:04 Aspirin; sg 17:04 cefepime; sg 17:04 CEPHALOSPORINS; sg 17:04 Ciprofloxacin; sg 17:04 Cortizone-10; sg 17:04 PENICILLINS; sg 17:04 Phenobarbital; sg 17:04 Cortisone; sg - PMHx: 17:04 CHF; Depression; Diabetes - IDDM; High Cholesterol; Hypertension; Hypothyroidism; sg Myasthenia Gravis; Myocardial infarction; Osteoporosis; - Immunization history:: Adult Immunizations up to date. - Coronavirus screen:: The patient has NOT traveled to [place], [place], or [place] in the past 14 days. - Social history:: Smoking status: Patient denies any tobacco usage or history of. - Ebola Screening: : Patient denies exposure to infectious person Patient denies travel to an Ebola-affected area in the 21 days before illness onset. ROS: 17:31 Constitutional: Negative for fever, chills, and weight loss, Eyes: Negative for injury, kdr pain, redness, and discharge, ENT: Negative for injury, pain, and discharge, Neck: Negative for injury, pain, and swelling, Cardiovascular: Negative for chest pain, palpitations, and edema, Respiratory: Negative for shortness of breath, cough, wheezing, and pleuritic chest pain, Abdomen/GI: Negative for abdominal pain, nausea, vomiting, diarrhea, and constipation, Back: Negative for injury and pain, : Negative for injury, bleeding, discharge, and swelling, Skin: Negative for injury, rash, and discoloration, Neuro: Negative for headache, weakness, numbness, tingling, and seizure activity. Psych: Negative for depression, anxiety, suicide ideation, homicidal ideation, and hallucinations, Allergy/Immunology: Negative for hives, rash, and allergies, Endocrine: Negative for neck swelling, polydipsia, polyuria, polyphagia, and marked weight changes, Hematologic/Lymphatic: Negative for swollen nodes, abnormal bleeding, and unusual bruising. 17:31 MS/extremity: Positive for injury or acute deformity, decreased range of motion, pain, tenderness, of the right clavicle and left clavicle. Exam: 17:31 Constitutional: This is a well developed, well nourished patient who is awake, alert, kdr and in no acute distress. Head/Face: Normocephalic, atraumatic. Eyes: Pupils equal round and reactive to light, extra-ocular motions intact. Lids and lashes normal. Conjunctiva and sclera are non-icteric and not injected. Cornea within normal limits. Periorbital areas with no swelling, redness, or edema. Neck: Trachea midline, no thyromegaly or masses palpated, and no cervical lymphadenopathy. Supple, full range of motion without nuchal rigidity, or vertebral point tenderness. No Meningismus. Chest/axilla: Normal chest wall appearance and motion. Nontender with no deformity. No lesions are appreciated. Cardiovascular: Regular rate and rhythm with a normal S1 and S2. No gallops, murmurs, or rubs. Normal PMI, no JVD. No pulse deficits. Respiratory: Lungs have equal breath sounds bilaterally, clear to auscultation and percussion. No rales, rhonchi or wheezes noted. No increased work of breathing, no retractions or nasal flaring. Abdomen/GI: Soft, non-tender, with normal bowel sounds. No distension or tympany. No guarding or rebound. No evidence of tenderness throughout. Back: No spinal tenderness. No costovertebral tenderness. Full range of motion. Skin: Warm, dry with normal turgor. Normal color with no rashes, no lesions, and no evidence of cellulitis. Neuro: Awake and alert, GCS 15, oriented to person, place, time, and situation. Cranial nerves II-XII grossly intact. Motor strength 4+/5 in all extremities. Sensory grossly intact. Cerebellar grossly inteact 17:31 Musculoskeletal/extremity: ROM: limited active range of motion, limited passive range of motion, in the right arm, anterior aspect of left shoulder and posterior aspect of left shoulder. Vital Signs: 17:01 BP 141 / 55; Pulse 66; Resp 18; Temp 97.7; Pulse Ox 97% on R/A; Pain 4/10; sg 19:55 BP 137 / 56; Pulse 80; Resp 16; Pulse Ox 96% ; ss 21:20 BP 150 / 66; Pulse 70; Resp 16; Pulse Ox 98% on R/A; ss MDM: 17:31 Data reviewed: vital signs, nurses notes, EMS record. kdr 19:09 Patient medically screened. snw 06/25 17:08 Order name: Shoulder Left (2 View) XRAY; Complete Time: 20:00 kdr 06/25 17:08 Order name: Shoulder Right (2 View) XRAY; Complete Time: 20:00 kdr 06/25 17:27 Order name: Elbow Left 3 View XRAY; Complete Time: 20:00 kdr 06/25 17:27 Order name: CT Head C Spine; Complete Time: 19:42 kdr Administered Medications: 17:40 Drug: Ibuprofen 600 mg Route: PO; sg Disposition: 06/25/19 20:53 Discharged to Home. Impression: Fall on same level from slipping, tripping and stumbling with subsequent striking against object. - Condition is Stable. - Discharge Instructions: Fall Prevention in the Home, Shoulder Pain, Rehydration, Elderly, Fall Prevention in Hospitals, Adult. - Prescriptions for Tylenol- Codeine #3 300-30 mg Oral Tablet - take 2 tablet by ORAL route every 6 hours As needed; 6 tablet. - Medication Reconciliation Form, Thank You Letter, Antibiotic Education, Prescription Opioid Use form. - Follow up: Emergency Department; When: As needed; Reason: Worsening of condition. Follow up: Private Physician; When: 1 - 2 days; Reason: Recheck today's complaints, Continuance of care, Re-evaluation by your physician. Signatures: Dispatcher [employer] Dutch Osborne, RN RN Eulogio Yoder MD MD [facility] Rupinder Hare, [employer] OUT[employer]ER-C [employer]SE[employer]ER-Csnw Sintia Dias RN RN ss Corrections: (The following items were deleted from the chart) 21:34 20:53 06/25/2019 20:53 Discharged to Home. Impression: Fall on same level from ss slipping, tripping and stumbling with subsequent striking against object. Condition is Stable. Forms are Medication Reconciliation Form, Thank You Letter, Antibiotic Education, Prescription Opioid Use. Follow up: Emergency Department; When: As needed; Reason: Worsening of condition. Follow up: Private Physician; When: 1 - 2 days; Reason: Recheck today's complaints, Continuance of care, Re-evaluation by your physician. snw
[2019-06-25 21:44] VITALS: BP 150/66; O2SAT 98
[2019-06-26 02:55] VITALS: TEMP 97.7
== END 2019-06-25 21:34 | disposition home or self-care (01) ==
LOC: ER 16:55
DX: M25.512 Pain in left shoulder (principal); M25.511 Pain in right shoulder; W01.10XA Fall on same level from slipping, tripping and stumbling with subsequent striking against unspecified object, initial encounter; Y92.9 Unspecified place or not applicable; Z88.0 Allergy status to penicillin; Z88.1 Allergy status to other antibiotic agents; Z88.8 Allergy status to other drugs, medicaments and biological substances
CPT/HCPCS: 70450; 72125; 99284

== ENCOUNTER 2019-08-02 03:41 | Emergency (ER) | payer OTHER ==
--- OUTSIDE RECORDS SUMMARY | 2019-08-02 03:44 | XMS REPORT ---
:1945 Author Organization [facility] Address [address] [place] [address] Dr. Tillman [address] [place] [id number] Care Team Providers Name Role Phone RUMA SANTANA Unavailable Unavailable Problems This patient has no known problems. Allergies, Adverse Reactions, Alerts This patient has no known allergies or adverse reactions. Medications This patient has no known medications. Encounters Start End Encounter Admission Attending Care Care Encounter Date/Time Date/Time Type Type Clinicians Facility Department ID 2019-02-05 Inpatient [facility] MED [id number] 08:54:00 2018-12-24 Inpatient U [facility] [id number] 18:32:00 2018-08-16 Inpatient E [facility] [id number] 23:35:00 2018-11-29 2018-11-29 Emergency E [facility] [id number] 07:33:00 07:33:00 2018-09-21 2018-09-21 Outpatient U [facility] [id number] 18:06:00 18:06:00 2018-09-12 2018-09-10 Inpatient U [facility] [id number] 15:01:00 00:20:00 2018-09-09 2018-09-08 Inpatient [facility] MED [id number] 11:57:00 09:51:00 Results Test Description Test Time Test Comments Text Results Atomic Results Result Comments TISSUE EXAM 2017-02-26 15:21:00 Surgical Pathology Report Case: [id number] Authorizing Provider: Ruma Santana MD Collected: 02/24/2017 1559 Ordering Location: [facility] Received: 02/25/2017 0810 Pathologist: [...] SERRATED POLYP/ADENOMA Signing Pathologist Direct Phone Line: [phone] signed by Kenji Hercules MD on 02/26/2017 at 3:21 [id number] x 3Diarrhea, rule out microscopic colitisA. Right/ascending [...] 144 mg/dL 70-[address] [facility] [address] [id number] [id number] POCT-GLUCOSE [id number] 14:21:00 Test Item Value Reference Range Comments POC-GLUCOSE METER (BEAKER) 118 mg/dL 70-[address] [facility] [address] (test gabq=[id number]) [facility] [id number]
--- OUTSIDE RECORDS SUMMARY | 2019-08-02 03:45 | XMS REPORT | Summary of Care ---
:1945 Author Name Ellyn Banerjee M.A. Address Unavailable Unavailable , Care Team Providers Name Role Phone NOELLE Still, SHEKHAR Unavailable Unavailable BRAD Still, MAN Unavailable Unavailable MEHNAZ RUIZ MD Unavailable Unavailable SHEKHAR DRAKE MD Unavailable Unavailable Unavailable Unavailable Unavailable Functional Status [...] DRAKE M.D. Start : 12-Nov-2018 Active Pyridostigmine [place] 60 MG Oral Tablet TAKE 1 TABLET BY MOUTH THREE TIMES A DAY Quantity: 270 Refills: 1 SHEKHAR DRAKE M.D. Start : 23-Nov-2018 Active [...] smoked Vital Signs Date Test Result Details No Known Vitals to report Results Date Description Value Details Results not documented Plan of Care Name Dates Details Planned Observations Planned Goals not documented Planned Encounters Appointment; SHEKHAR DRAKE M.D. On: 08-Nov-2019 9:30 Interventions Provided Medication ChangesPyridostigmine Macon 60 MG Oral Tablet - Renew Instructions Name Dates Details Instructions not documented [...]
[2019-08-02] MEDS ORDERED: DERMABOND SKIN ADHESIVE TOP ONE ×2 (03:57→04:42)
--- NOTE | 2019-08-02 05:23 | ER ---
Nurse's Notes [facility] Name: Franci Lange Age: 74 yrs Sex: Female : 1945 Arrival Date: 08/02/2019 Time: 03:42 Bed 7 Private MD: Diagnosis: Superficial injury of head;Frontal hematoma with laceration;Strain of muscle, fascia and tendon of right hip Presentation: 08/01 03:35 Chief complaint: EMS states: patient sitting on a recliner stamp her foot when standing rr5 fell down hit her head sustained lacerated wound and swelling right forehead. after she fell she press her medical alarm button. negative for LOC, negative blood thinner. Care prior to arrival: Bleeding of injury controlled. Placed on backboard. Mechanism of Injury: Fall out of chair. Trauma event details: Injury occurred in the [facility], Injury occurred: [facility] Injury occurred: August 02, 2019 Injury occurred at: 03:00. 03:35 Acuity: JAY 3 rr5 03:35 Method Of Arrival: EMS: [facility] rr5 03:35 Coronavirus screen: The patient has NOT traveled to [place] in the past 14 days. Proceed rr5 with normal triage procedures. Ebola Screen: Patient negative for fever greater than or equal to 101.5 degrees Fahrenheit, and additional compatible Ebola Virus Disease symptoms Patient denies exposure to infectious person. Patient denies travel to an Ebola-affected area in the 21 days before illness onset. Initial Sepsis Screen: Does the patient meet any 2 criteria? No. Patient's initial sepsis screen is negative. Does the patient have a suspected source of infection? No. Patient's initial sepsis screen is negative. Risk Assessment: Do you want to hurt yourself or someone else? Patient reports no desire to harm self or others. Onset of symptoms was August 02, 2019 at 03:00. 03:35 Transition of care: patient was received from another setting of care (long-term care rr5 facility), [facility]. 03:50 Note according to family member 3 weeks ago patient had an episode of fall. rr5 Trauma Activation: Alert Physician: ED Physician; Name: dr. callahan; Notified At: ; Arrived At: Physician: General Surgeon; Name: ; Notified At: ; Arrived At: Physician: Radiology; Name: colby gomez; Notified At: ; Arrived At: Physician: Respiratory; Name: ; Notified At: ; Arrived At: Physician: Lab; Name: ; Notified At: ; Arrived At: Historical: - Allergies: 03:40 Aspirin; rr5 03:40 cefepime; rr5 03:40 CEPHALOSPORINS; rr5 03:40 Ciprofloxacin; rr5 03:40 Cortisone; rr5 03:40 Cortizone-10; rr5 03:40 PENICILLINS; rr5 03:40 Phenobarbital; rr5 - Home Meds: 03:40 amlodipine 10 mg tab 1 tab once daily [Active]; clonazepam 0.5 mg Oral tab 1 tab daily rr5 [Active]; famotidine 20 mg Oral tab 1 tab once daily [Active]; furosemide 40 mg Oral tab 1 tab once daily [Active]; furosemide 20 mg Oral tab 1 tab nightly [Active]; Levemir 100 unit/mL subcutaneous soln 25 unit nightly [Active]; levothyroxine 88 mcg tab 1 tab once daily [Active]; melatonin 3 mg Oral tab 2 cap nightly [Active]; Novolog 10 units Sub-Q soln before meals [Active]; potassium chloride 10 mEq Oral cpER 1 cap 3 times per day [Active]; prednisone 20 mg Oral tab 1 tab once daily [Active]; rosuvastatin 20 mg Oral tab 1 tab nightly [Active]; pyridostigmine bromide 60 mg Oral tab 1 tab 3 times per day [Active]; sertraline 25 mg Oral tab 1 tab once daily [Active]; - PMHx: 03:40 CHF; Depression; Diabetes - IDDM; High Cholesterol; Hypertension; Hypothyroidism; rr5 Myasthenia Gravis; Myocardial infarction; Osteoporosis; - PSHx: 03:40 brain surgery; brain shunt; menigioma; neck surgery; rr5 - Immunization history:: Adult Immunizations up to date. - Social history:: Smoking status: unknown. - Immunization history: Last tetanus immunization: unknown. - Family history:: not pertinent. - Hospitalizations: : No recent hospitalization is reported. Screenin:35 Abuse screen: Denies threats or abuse. Denies injuries from another. Nutritional rr5 screening: No deficits noted. Tuberculosis screening: No symptoms or risk factors identified. Fall Risk Fall in past 12 months (25 points). Mental Status- Oriented to own ability (0 pts). Total Badillo Fall Scale indicates No Risk (0-24 pts). Primary Survey: 03:40 NO uncontrolled hemorrhage observed. A: The patient is alert. Airway: patent, No rr5 supplemental oxygen in use on arrival. Oral cavity: clear, gag reflex present, Trachea midline. 03:40 Breathing/Chest: Respiratory pattern: regular, Respiratory effort: spontaneous, rr5 unlabored, Breath sounds: clear, bilaterally. Chest inspection: symmetrical rise and fall of the chest. Circulation: Heart tones present. Disability Alert. Exposure/Environment: All clothing and personal items were removed. There is no evidence of uncontrolled external bleeding. Obvious injury(ies) are noted at this time: lacerated wound right forehead, swelling and hematoma noted. A warming method has been applied: A warm blanket has been provided to the patient. 03:40 Reassessment Airway Airway Patent Breathing/Chest Respiratory pattern Regular rr5 Respiratory effort Spontaneous Unlabored Breath sounds Clear Chest inspection Symmetrical Circulation Heart tones Present Pulses Palpable Color [place] Temperature Warm Dry Disability Alert. Secondary Survey: 03:35 HEENT: Head No injury/deformity Face Other swelling, hematoma, abrasion, lacerated rr5 wound right forehead. Eyes: Other mild swelling right eye Ears: clear Nose: clear Throat: No injury or deformity noted. is clear with gag reflex present. 03:35 Gastrointestinal: No deficits noted. : No signs and/or symptoms were reported rr5 regarding the genitourinary system. Musculoskeletal: Capillary refill < 3 seconds, Reports pain in right hip. Assessment: 03:35 General: Appears in no apparent distress. uncomfortable, Behavior is calm, cooperative. rr5 03:35 Pain: Complains of pain in forehead Pain does not radiate. Pain currently is 8 out of rr5 10 on a pain scale. Quality of pain is described as aching, Pain began suddenly, Is intermittent. Neuro: Level of Consciousness is awake, alert, obeys commands, Oriented to person, place, time, situation, Denies LOC. Cardiovascular: Capillary refill < 3 seconds Patient's skin is warm and dry. Respiratory: Airway is patent Respiratory effort is even, unlabored, Respiratory pattern is regular, symmetrical. GI: No signs and/or symptoms were reported involving the gastrointestinal system. : No signs and/or symptoms were reported regarding the genitourinary system. EENT: No signs and/or symptoms were reported regarding the EENT system. Derm: Skin is fragile, is thin, Skin is pink, warm \T\ dry. Skin temperature is warm Wound noted right side of forehead Wound is swelling, hematoma, abrasion lacerated wound. Musculoskeletal: Capillary refill < 3 seconds, Reports pain in right hip Pain is 8 out of 10 on a pain scale. Injury Description: Head injury sustained to right side of forehead is open, bleeding, did not have loss of consciousness. 04:40 Reassessment: Patient appears in no apparent distress at this time. No changes from rr5 previously documented assessment. Patient is alert, oriented x 3, equal unlabored respirations, skin warm/dry/pink. awaiting for CT and xray result. 05:30 Reassessment: Patient appears in no apparent distress at this time. Patient is alert, rr5 oriented x 3, equal unlabored respirations, skin warm/dry/pink. no bleeding at injured site. continue ice compress. resting eyes closed breathing spontaneously at room air. 06:00 Reassessment: Patient appears in no apparent distress at this time. ED provider rr5 explained the results to chemical dependency professional, kraig wrap applied to forehead.discharge instruction given and explained without complaints made. assisted going to her car. her family member will take her to [facility]. Vital Signs: 03:35 BP 154 / 79; Pulse 84; Resp 19; Temp 97.8; Pulse Ox 98% ; Weight 87.09 kg; Height 4 ft. rr5 11 in. (149.86 cm); Pain 8/10; 04:45 BP 145 / 75; Pulse 80; Resp 16; Pulse Ox 98% on R/A; rr5 05:30 BP 155 / 85; Pulse 79; Resp 17; Pulse Ox 96% on R/A; rr5 06:00 BP 144 / 95; Pulse 86; Resp 18; Temp 98; Pulse Ox 95% ; rr5 03:35 Body Mass Index 38.78 (87.09 kg, 149.86 cm) rr5 Louisa Coma Score: 03:35 Eye Response: spontaneous(4). Verbal Response: oriented(5). Motor Response: obeys rr5 commands(6). Total: 15. 03:45 Eye Response: spontaneous(4). Verbal Response: oriented(5). Motor Response: obeys rn commands(6). Total: 15. 05:20 Eye Response: spontaneous(4). Verbal Response: oriented(5). Motor Response: obeys rn commands(6). Total: 15. Trauma Score (Adult): 03:35 Eye Response: spontaneous(1); Verbal Response: oriented(1); Motor Response: obeys rr5 commands(2); Systolic BP: > 89 mm Hg(4); Respiratory Rate: 10 to 29 per min(4); Louisa Score: 15; Trauma Score: 12 ED Course: 03:15 Thermoregulation: warm blanket given to patient. rr5 03:15 Patient maintains SpO2 saturation greater than 95% on room air. rr5 03:35 Patient has correct armband on for positive identification. Placed in gown. Bed in low rr5 position. Call light in reach. Pulse ox on. NIBP on. 03:35 Warm blanket given. Ice pack to injury. rr5 03:42 Patient arrived in ED. ds1 03:44 Bob Callahan MD is Attending Physician. rn 03:45 Pako Lawler RN is Primary Nurse. rr5 03:55 Triage completed. rr5 03:57 Arm band placed on right wrist. rr5 04:11 XRAY Pelvis In Process Unspecified. EDMS 04:12 XRAY Hip RIGHT 2 view In Process Unspecified. EDMS 04:20 Wound care: to laceration located on right side of forehead was cleaned with Hibiclens, rr5 ice pack applied. Patient tolerated well. 04:30 Assist provider with laceration repair on forehead and right side of forehead that was rr5 2.5 cm. or less using Dermabond. Set up tray. Performed by Bob Callahan MD Patient tolerated well. 04:32 CT Head C Spine In Process Unspecified. EDMS 06:00 Patient did not have IV access during this emergency room visit. rr5 Administered Medications: No medications were administered Intake: 06:00 PO: 0ml; Total: 0ml. rr5 Outcome: 05:22 Discharge ordered by . rn 06:00 Discharged to correction. family member will send her to [facility] rr5 06:00 Condition: stable 06:00 Discharge instructions given to family, Instructed on discharge instructions, follow up and referral plans. Demonstrated understanding of instructions, follow-up care. 06:00 Patient's length of stay was not longer than 2 hours. rr5 06:12 Patient left the ED. rr5 Signatures: Dispatcher [employer] EDMS Ana Rey ds1 Bob Callahan MD MD rn Roque, Raymond, RN RN rr5 Corrections: (The following items were deleted from the chart) 04:44 03:35 BP 154 / 79; Pulse 84bpm; Resp 19bpm; Pulse Ox 98%; 87.09 kg; Height 4 ft. 11 rr5 in.; BMI: 38.7; Pain 0/10; rr5
--- NOTE | 2019-08-02 05:23 | EDPHYS ---
Physician Documentation [facility] Name: Franci Lange Age: 74 yrs Sex: Female : 1945 Arrival Date: 08/02/2019 Time: 03:42 Bed 7 Private MD: ED Physician Bob Callahan HPI: 08/01 03:45 This 74 yrs old Female presents to ER via Unassigned with complaints of Fall rn Injury. 03:45 The patient or guardian reports injury, pain, swelling. The complaints affect the rn forehead. Onset: The symptoms/episode began/occurred just prior to arrival. Severity of symptoms: At their worst the symptoms were mild, in the emergency department the symptoms are unchanged. The patient has experienced similar episodes in the past. Per EMS report, fall from assisted recliner, fell forward, struck head on carpet, no LOC, remembers all events. No blood thinners. Denies other injury or pain.. Historical: - Allergies: 03:40 Aspirin; rr5 03:40 cefepime; rr5 03:40 CEPHALOSPORINS; rr5 03:40 Ciprofloxacin; rr5 03:40 Cortisone; rr5 03:40 Cortizone-10; rr5 03:40 PENICILLINS; rr5 03:40 Phenobarbital; rr5 - Home Meds: 03:40 amlodipine 10 mg tab 1 tab once daily [Active]; clonazepam 0.5 mg Oral tab 1 tab daily rr5 [Active]; famotidine 20 mg Oral tab 1 tab once daily [Active]; furosemide 40 mg Oral tab 1 tab once daily [Active]; furosemide 20 mg Oral tab 1 tab nightly [Active]; Levemir 100 unit/mL subcutaneous soln 25 unit nightly [Active]; levothyroxine 88 mcg tab 1 tab once daily [Active]; melatonin 3 mg Oral tab 2 cap nightly [Active]; Novolog 10 units Sub-Q soln before meals [Active]; potassium chloride 10 mEq Oral cpER 1 cap 3 times per day [Active]; prednisone 20 mg Oral tab 1 tab once daily [Active]; rosuvastatin 20 mg Oral tab 1 tab nightly [Active]; pyridostigmine bromide 60 mg Oral tab 1 tab 3 times per day [Active]; sertraline 25 mg Oral tab 1 tab once daily [Active]; - PMHx: 03:40 CHF; Depression; Diabetes - IDDM; High Cholesterol; Hypertension; Hypothyroidism; rr5 Myasthenia Gravis; Myocardial infarction; Osteoporosis; - PSHx: 03:40 brain surgery; brain shunt; menigioma; neck surgery; rr5 - Immunization history:: Adult Immunizations up to date. - Social history:: Smoking status: unknown. - Immunization history: Last tetanus immunization: unknown. - Family history:: not pertinent. - Hospitalizations: : No recent hospitalization is reported. ROS: 03:45 Constitutional: Negative for fever, chills, and weight loss, Eyes: Negative for injury, rn pain, redness, and discharge, Neck: Negative for injury, pain, and swelling, Cardiovascular: Negative for chest pain, palpitations, and edema, Respiratory: Negative for shortness of breath, cough, wheezing, and pleuritic chest pain, Abdomen/GI: Negative for abdominal pain, nausea, vomiting, diarrhea, and constipation, MS/Extremity: Negative for injury and deformity, Skin: + hematoma and laceration to right forehead Neuro: Negative for seizure Exam: 03:45 Constitutional: This is a well developed, well nourished patient who is awake, alert, rn and in no acute distress. Head/Face: + right forehead abrasion with central 2cm irregular superficial laceration, minimal bleeding. + right forehead hematoma. ENT: No oral trauma Neck: NO midline cervical tenderness Cardiovascular: Regular rate and rhythm. No pulse deficits. Respiratory: No increased work of breathing, no retractions or nasal flaring. Abdomen/GI: Soft, non-tender MS/ Extremity: Pulses equal, no cyanosis. + mild painful ROM right hip/groin Neuro: Awake and alert, Motor strength 4/5 in all extremities. Vital Signs: 03:35 BP 154 / 79; Pulse 84; Resp 19; Temp 97.8; Pulse Ox 98% ; Weight 87.09 kg; Height 4 ft. rr5 11 in. (149.86 cm); Pain 8/10; 04:45 BP 145 / 75; Pulse 80; Resp 16; Pulse Ox 98% on R/A; rr5 05:30 BP 155 / 85; Pulse 79; Resp 17; Pulse Ox 96% on R/A; rr5 06:00 BP 144 / 95; Pulse 86; Resp 18; Temp 98; Pulse Ox 95% ; rr5 03:35 Body Mass Index 38.78 (87.09 kg, 149.86 cm) rr5 Louisa Coma Score: 03:35 Eye Response: spontaneous(4). Verbal Response: oriented(5). Motor Response: obeys rr5 commands(6). Total: 15. 03:45 Eye Response: spontaneous(4). Verbal Response: oriented(5). Motor Response: obeys rn commands(6). Total: 15. 05:20 Eye Response: spontaneous(4). Verbal Response: oriented(5). Motor Response: obeys rn commands(6). Total: 15. Trauma Score (Adult): 03:35 Eye Response: spontaneous(1); Verbal Response: oriented(1); Motor Response: obeys rr5 commands(2); Systolic BP: > 89 mm Hg(4); Respiratory Rate: 10 to 29 per min(4); Louisa Score: 15; Trauma Score: 12 Laceration: 04:46 Wound Repair of 2cm ( 0.8in ) subcutaneous laceration to right side of forehead. Distal rn neuro/vascular/tendon intact. Wound prep: Moderate cleansing by nurse. Skin closed with 2 thin layer Adhesive skin closure using Dermabond. Patient tolerated well. MDM: 03:44 Patient medically screened. rn 05:20 Differential diagnosis: Contusion of Hematoma on Intracranial bleed- Concussion rn cerebral contusion. Data reviewed: vital signs, nurses notes, radiologic studies, CT scan, plain films, and as a result, I will discharge patient. Counseling: I had a detailed discussion with the patient and/or guardian regarding: the historical points, exam findings, and any diagnostic results supporting the discharge/admit diagnosis, radiology results, the need for outpatient follow up, to return to the emergency department if symptoms worsen or persist or if there are any questions or concerns that arise at home. Special discussion: Based on the patient's history, exam and DX evaluation, there is no indication for emergent intervention or inpatient TX. It is understood by the patient/guardian that if the SXs persist or worsen they need to return immediately for re-evaluation. I discussed with the patient/guardian in detail that at this point there is no indication for admission to the hospital. It is understood, however, that if the symptoms persist or worsen the patient needs to return immediately for re-evaluation. ED course: No acute findings on ct head/cspine, or xray hip/pelvis. . 08/01 03:45 Order name: CT Head C Spine rn 08/01 03:45 Order name: XRAY Pelvis rn 08/01 03:45 Order name: XRAY Hip RIGHT 2 view rn 08/01 03:45 Order name: Wound Care; Complete Time: 04:55 rn 08/01 03:45 Order name: Dermabond; Complete Time: 04:55 rn Administered Medications: No medications were administered Disposition: 08/02/19 05:22 Discharged to Home. Impression: Superficial injury of head, Frontal hematoma with laceration, Strain of muscle, fascia and tendon of right hip. - Condition is Stable. - Discharge Instructions: Tissue Adhesive Wound Care, Head Injury, Adult, Muscle Strain, Hip Pain. - Medication Reconciliation Form, Thank You Letter, Antibiotic Education, Prescription Opioid Use form. - Follow up: Private Physician; When: As needed; Reason: Recheck today's complaints, Re-evaluation by your physician. - Problem is new. - Symptoms have improved. Signatures: Dispatcher [employer] EDBob López MD MD rn Roque, Raymond, RN RN rr5 Corrections: (The following items were deleted from the chart) 06:12 05:22 08/02/2019 05:22 Discharged to Home. Impression: Superficial injury of head; rr5 Frontal hematoma with laceration; Strain of muscle, fascia and tendon of right hip. Condition is Stable. Forms are Medication Reconciliation Form, Thank You Letter, Antibiotic Education, Prescription Opioid Use. Follow up: Private Physician; When: As needed; Reason: Recheck today's complaints, Re-evaluation by your physician. Problem is new. Symptoms have improved. rn
[2019-08-02 06:32] VITALS: BP 145/75; O2SAT 98
--- NOTE | 2019-08-02 10:35 | RAD REPORT ---
EXAM DESCRIPTION: CT - [id number] - 08/02/2019 5:32 am CLINICAL HISTORY: 74-year-old female status post fall with head injury TECHNIQUE: Multiple axial CT images of the brain and cervical spine were performed followed by sagit marcelle and coronal reconstructed images. The CT study is performed according to ALARA (as low as reasona irving achievable) or ALARA/IMAGE GENTLY, with automatic adjustment of mA and/or kV according to patient size. Performed on: 08/02/2019 3:54 AM Comparisons: 06/25/2019. FINDINGS: CT HEAD: There are remote postsurgical changes consistent with a right frontotemporal craniotomy. There is hyp erostosis frontalis interna. There is chronic encephalomalacia within the right frontal lobe and port ions of the right temporal lobe. A left frontal ventricular shunt catheter is present terminating in the region of the frontal horn of the right lateral ventricle. 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 The appearance is stable when compared to prior studies. There is no evidence of acute mass effect or acute midline shift. The cerebral sulci and ventricles a re stable when compared to the prior studies. There is no evidence of hydrocephalus. No definite acut e intracranial hemorrhage is identified. There are no acute extra-axial fluid collections. There is no significant mucosal thickening of the paranasal sinuses. The mastoid air cells are clear. The orbital contents are grossly unremarkable. No acute osseous abnormalities are identified. There appears to be mild soft tissue swelling along the superior lateral aspect of the right orbit. T here is right frontal scalp soft tissue swelling. CT CERVICAL SPINE: The cervical vertebrae are normal in height. There is straightening of the normal cervical lordosis. There is mild disc space narrowing at C6-C7 and C7-T1. Bone mineralization is normal. The atlant o-axial articulation is preserved and the odontoid process is intact. There is normal alignment of the facet joints on the parasagittal images. There are moderate degenera tive changes of the cervical spine. There are bridging anterior vertebral osteophytes at multiple lev els. Diffuse idiopathic skeletal hyperostosis is a consideration. There is no evidence of acute fracture or subluxation. There is multilevel mild canal stenosis second jordi to disc osteophyte complexes. There is multilevel bilateral neural foraminal stenosis secondary to uncovertebral joint and facet joint hypertrophy.. The paravertebral and paraspinal soft tissues a re unremarkable. The lung apices are clear. There are bilateral retropharyngeal carotid arteries. There are vascular c alcifications present. IMPRESSION: CT HEAD: 1. Remote right frontotemporal craniotomy with underlying encephalomalacia involving portions of the right frontal lobe and right temporal lobe. 2. No evidence of acute intracranial pathology. 3. 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 4. Right frontal and right periorbital soft tissue swelling. CT CERVICAL SPINE: 1. No evidence of acute osseous injury involving the cervical spine. 2. Grossly stable degenerative changes of the cervical spine as described above. Diffuse idiopathic s keletal hyperostosis (DISH) is a consideration. 3. Retropharyngeal carotid arteries bilaterally. Electronically signed by: Abby Rosenthal DO 08/02/2019 5:12 AM CUTTING INSPECTOR Due to temporary technical issues with the PACS/Fluency reporting system, reports are being signed by the in house radiologist as a courtesy to ensure prompt reporting. The interpreting radiologist is f ully responsible for the content of the report.
--- NOTE | 2019-08-02 10:36 | RAD REPORT ---
EXAM DESCRIPTION: RAD - Pelvis - 08/02/2019 4:11 am CLINICAL HISTORY: BLUNT TRAUMA COMPARISON: None. TECHNIQUE: AP Pelvis. FINDINGS: There is no fracture lucency within the sacrum, iliac bones, or femurs. Anterior pubic bon es appear intact. Intact sacroiliac joints and symphysis pubis. Moderate hypertrophic change along th e right and left iliac bones and the greater trochanter of the proximal femurs. Soft tissues appear n ormal. IMPRESSION: Mild degenerative change throughout the pelvis and proximal femurs. No acute finding. Electronically signed by: Miriam Tierney DO 08/02/2019 5:15 AM GAME DESIGNER/CREATIVE DIRECTOR Due to temporary technical issues with the PACS/Fluency reporting system, reports are being signed by the in house radiologist as a courtesy to ensure prompt reporting. The interpreting radiologist is f ully responsible for the content of the report.
--- NOTE | 2019-08-02 10:38 | RAD REPORT ---
EXAM DESCRIPTION: RAD - Hip Right 2 View - 08/02/2019 4:12 am CLINICAL HISTORY: 74-year-old female with pain TECHNIQUE: Two x-ray views of the right hip were performed on 08/02/2019 at 4:02 AM. COMPARISON: None FINDINGS: There is no evidence of acute fracture or dislocation. There is mild diffuse narrowing of the right hip joint. No pathologic lytic or sclerotic bone lesions are identified. Bone mineralization is normal. No acute soft tissue abnormalities are identified. IMPRESSION: No evidence of acute osseous injury involving the right hip. There is mild diffuse narro wing of the right hip joint. Electronically signed by: Abby Rosenthal DO 08/02/2019 5:14 AM RESIDENTIAL DIRECT SUPPORT PROFESSIONAL Due to temporary technical issues with the PACS/Fluency reporting system, reports are being signed by the in house radiologist as a courtesy to ensure prompt reporting. The interpreting radiologist is f ully responsible for the content of the report.
== END 2019-08-02 06:12 | disposition home or self-care (01) ==
LOC: ER 03:41
PROC: 0JQ10ZZ Repair Face Subcutaneous Tissue and Fascia, Open Approach (ICD-10-PCS; principal; 2019-08-02)
DX: S01.81XA Laceration without foreign body of other part of head, initial encounter (principal); S76.011A Strain of muscle, fascia and tendon of right hip, initial encounter; W07.XXXA Fall from chair, initial encounter; Y93.9 Activity, unspecified; Y92.9 Unspecified place or not applicable; Z79.4 Long term (current) use of insulin; Z88.0 Allergy status to penicillin; Z88.1 Allergy status to other antibiotic agents; Z88.5 Allergy status to narcotic agent; Z88.6 Allergy status to analgesic agent; Z88.8 Allergy status to other drugs, medicaments and biological substances; I10 Essential (primary) hypertension; E11.9 Type 2 diabetes mellitus without complications; E03.9 Hypothyroidism, unspecified; E78.00 Pure hypercholesterolemia, unspecified; F32.9 Major depressive disorder, single episode, unspecified
CPT/HCPCS: 36415; 70450; 72125; 72170; 82947; 99284

== ENCOUNTER 2019-11-21 22:02 | Emergency (ER) | payer OTHER ==
--- OUTSIDE RECORDS SUMMARY | 2019-11-21 22:05 | XMS REPORT | Clinical Summary ---
:1945 Author Organization [facility] Address [address] [place] [address] Care Team Providers Name Role Phone Ayush Scott Primary Care Provider Unavailable Allergies Active Allergy Reactions Severity Noted Date [...] Not on file Results Not on fileafter 11/20/2018 Insurance Payer Benefit Plan / Subscriber ID Type Phone Address Group [employer] - MEDICARE [employer] MEDICARE O xxxxxxxx [address] [place] [address] Advance Directives For more information, please contact:[address] [phone] Code Status Date Activated Date Inactivated Comments Full Code 02/13/2014 10:17 AM 02/13/2014 6:26 PM This code status was determined by: Patient
--- OUTSIDE RECORDS SUMMARY | 2019-11-21 22:33 | XMS REPORT | Continuity of Care Document ---
:1945 Author Organization [employer] Care Team Providers Name Role Phone [facility] ClassifEye Information Exchange Unavailable Un available Problems Problem Status Onset Classification Date Comments Sourc e Date Reported MYASTHENIA GRAVIS Active [facility] WEAKNESS 019 Medical Ce nter MYASTHENIA GRAVIS Active [facility] 019 Medical Ce nter Dorsalgia, [facility] unspecified 019 9 Medical Center DIABETIC Active [facility] 019 Medical Ce nter DYSPHAGIA Active [place] [address] Medical Ce nter RESOLVED VISION Active [facility] emorial 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 BAD REACTION TO Active [facility] [place] MEDICATION 011 Medical C enter DEHYDRATION,PAIN Active [facility] CONTROL 011 Medical Ce nter LEG CRAMPS Active [facility] 011 Medical Ce nter DEHYDRATION Active [facility] 011 Medical Ce nter SDH Active 011 Rehabilita tion DM - Diabetes Active Problem [place] mellitus 011 1 Medical Ce nter HYDROCEPHALUS Active [place] 011 Medical Ce nter BRAIN MASS Active 011 Rehabilita tion BRAIN MASS/AWAKE Active [facility] 011 Medical Ce nter LIFE FLIGHT Active [facility] 011 Medical Ce nter Altered mental Active Problem Misch er status (finding) 9 Fran ro,[facility], [place] Kelly[facility] 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 Mis binta eye (disorder) 9 Neuro ,[facility], [place] [facility] Coronary Resolved Problem Mischer arteriosclerosis 9 Fran ro,[facility] (disorder) [facility], [place] [facility] Craniotomy Active Problem [place] (procedure) 9 Neuro,[facility], [place] Kelly,[facility] Diabetes mellitus Resolved Problem Mi edwardo (disorder) 9 Neuro,[facility], [place] Kelly[facility] Heart failure Resolved Problem systilic Mische r (disorder) 9 [facility], [place] Kelly[facility] Hypertensive Active Problem Mischer disorder, systemic 9 N euro,[facility] (disorder) Center, [place] Kelly[facility] Hypothyroidism Resolved Problem Misch er (disorder) 9 Neuro,[facility], [place] Kelly[facility] Itching (finding) Active Problem Mi edwardo 9 Neuro,[facility], [place] [facility] Intracranial Active Problem Mischer meningioma 9 Neuro,[facility] (disorder) [facility], [place] Kelly,[facility] Morbid obesity Resolved Problem Misch er (disorder) 9 Neuro,[facility], [place] Kelly,[facility] Obstructive sleep Resolved Problem Mi edwardo apnea syndrome 9 [facility] ,[facility] (disorder) [facility], [place] Kelly[facility] Pain (finding) Active Problem Misch er 9 Neuro,[facility], [place] Kelly[facility] Visual disturbance Active Problem M ischer (disorder) 9 Neuro,[facility], [place] Kelly,[facility] Illness, Memoria l unspecified 9 City Myasthenia gravis [facility] without (acute) 9 [facility] exacerbation Myasthenic crisis Active Problem [facility] (disorder) 9 Medical C enter Diabetes mellitus Active Problem [facility] type 2 (disorder) [facility] [place] 40+ - severely 9 [facility] Center obese (finding) Myasthenia gravis Active Problem [facility] (disorder) 9 Medical C enter Recurrent falls Active Problem [place] (finding) 9 Medical Ce nter Type II diabetes Active Problem [facility] mellitus 9 Medical Ce nter uncontrolled (finding) Altered mental Active Problem [place] status 1 Medical Ce [place]ter Craniotomy Active Problem [place] [address] Medical Ce nter HTN - Hypertension Active Problem [place] [address] Medical Ce nter Lethargic Inactive Problem [place] [address] Medical Ce nter Meningioma of Active Problem [facility] as brain 1 Medical Ce nter Visual disturbance Active Problem [place] [address] Medical Ce nter Itching Active Problem [place] [address] Medical Ce nter Pain Active Problem [place] [address] Medical Ce nter BRAIN NEOPLASM NOS Active [facility] Rehabilita [place]ion [place]MIN[place]VE [place] [facility] COMMUNICAT Active [facility] HYDROCEPHALUS Medica l Center SUBDURAL Active HEMORRHAGE Rehabilit ation DEHYDRATION Active [facility] Medical Ce nter MYASTHENIA GRAVIS Active [facility] WITHOUT (ACUTE) [facility] EXACER SLURRED SPEECH [place] [facility] [place] ILLNESS, Active Memoria l UNSPECIFIED [place] OCULAR PAIN, RIGHT Active M H [facility] EYE [facility] 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, LEFT EYE, [place] ALEXIA Medications Medication Details Route Status Patient Ordering Order Source Instructions Provider Date heparin flush Notes: (Same Inactive [place] as: Heparin 2019 Medical Lock Flush) Center heparin 100 unit, Inactive 03/04/ [facility] Route: IVP, 2019 Medical ONCE, Dosing Center Weight 100, kg, Start date: 03/04/19 17:24:00 CDT, Stop date: 03/04/19 17:24:00 CDT rosuvastatin 10 mg 20 mg = 2 tab, Active [place] oral tablet PO, Bedtime, # 2019 Medic al 180 tab, 3 Center Refill(s) amLODIPine 10 mg 10 mg, PO, Active [place] oral tablet Daily, # 30 2019 Medical tab, 0 Center Refill(s) Ergocalciferol 50,000 Active [facility] [address] UNT Oral IntlUnit = 1 2019 Medi roger Capsule cap, PO, Q7D, Center # 5 cap, 0 Refill(s) Famotidine 20 MG 20 mg = 1 tab, Active [place] Oral Tablet PO, Daily, # 2019 Medical 30 tab, 0 Center Refill(s) Furosemide 20 MG 20 mg = 1 tab, Active [facility] Oral Tablet PO, Daily, # 2019 Medical [Lasix] 30 tab, 0 Center Refill(s) Insulin Glargine 15 unit, Active [place] 100 UNT/ML SUB-Q, Daily, 2019 Medical Injectable # 15 mL, 0 Center Solution [Lantus] Refill(s) linezolid 600 mg 600 mg = 1 Active [place] oral tablet tab, PO, 2019 Medical [id number], X 7 Center day, # 14 tab, 0 Refill(s) meclizine 12.5 mg 12.5 mg = 1 Active [place] oral tablet tab, PO, TID, 2019 Medica l PRN Dizziness, Center X 7 day, # 100 tab, 0 Refill(s) melatonin 3 mg 6 mg = 2 tab, Active [place] oral tablet PO, Bedtime, 2019 Medical PRN Sleep, X Center 30 day, # 120 tab, 0 Refill(s) Metronidazole 500 500 mg = 1 Active [place] MG Oral Tablet tab, PO, 2019 Medical [id number], X 7 Center day, # 21 tab, 0 Refill(s) predniSONE 5 mg 25 mg = 5 tab, Active 03/04/ H [place] oral tablet PO, Daily, # 2019 Medical 150 tab, 0 Center Refill(s) pyridostigmine 60 60 mg = 1 tab, Active [place] mg oral tablet PO, TID, # 90 2019 Med ical tab, 0 Center Refill(s) QUEtiapine 25 mg 25 mg = 1 tab, Active [place] oral tablet PO, Bedtime, # 2019 Medic al 30 tab, 0 Center Refill(s) Sulfamethoxazole 2 tab, PO, Active [place] 800 MG / [id number], X 7 2019 Medical Trimethoprim 160 day, # 28 tab, Center MG Oral Tablet 0 Refill(s) [Bactrim] Acetaminophen 325 650 mg = 2 Active [place] MG Oral Tablet tab, PO, Q6H, 2019 Med ical PRN Pain Score Center 4-6, X 14 day, # 50 tab, 0 Refill(s) Insulin Glargine 15 unit, Inactive [place] 100 UNT/ML SUB-Q, Daily, 2019 Medical Injectable 0 Refill(s) [place] Solution [Lantus] linezolid 600 mg 600 mg = 1 Inactive [place] oral tablet tab, PO, 2019 Medical [id number], 0 Center Refill(s) meclizine 12.5 mg 12.5 mg = 1 Inactive H [place] oral tablet tab, PO, TID, 2019 Medica l PRN Dizziness, Center 0 Refill(s) melatonin 3 mg 6 mg = 2 tab, Inactive [place] oral tablet PO, Bedtime, 2019 Medical PRN Sleep, 0 Center Refill(s) Metronidazole 500 500 mg = 1 Inactive [place] MG Oral Tablet tab, PO, 2019 Medical [id number], 0 Center Refill(s) QUEtiapine 25 mg 25 mg = 1 tab, Inactive [place] oral tablet PO, Bedtime, 0 2019 Medic al Refill(s) Center Sulfamethoxazole 2 tab, PO, Inactive [place] 800 MG / [id number], 0 2019 Medical Trimethoprim 160 Refill(s) Cente r MG Oral Tablet [Bactrim] Acetaminophen 325 650 mg = 2 Inactive [place] MG Oral Tablet tab, PO, Q6H, 2019 Med ical PRN Pain Score Center 7-10, 0 Refill(s) Ergocalciferol 50,000 Inactive [place] [address] UNT Oral IntlUnit = 1 2019 Medi roger Capsule cap, PO, Q7D, Center 0 Refill(s) Famotidine 20 MG 20 mg = 1 tab, Inactive [facility] Oral Tablet PO, Daily, 0 2018 Medical Refill(s) Center Hydroxyzine 25 mg = 1 cap, Inactive [place] Hydrochloride 25 PO, QID, PRN 2019 Tn dical MG Oral Capsule Anxiety, 0 Cente r Refill(s) predniSONE 5 mg 25 mg = 5 tab, Inactive [facility] oral tablet PO, Daily, 0 2018 Medical Refill(s) Center Flagyl 500 mg, 1 tab, Inactive [facility] Route: PO, 2019 Medical Drug form: Center TAB, [id number], Dosing Weight 100, kg, Start date: 03/04/19 9:00:00 CDT, Duration: 14 day, Stop date: 03/18/19 1:00:00 CDT, ABX Indication: Skin/Soft Tissue Infection, 0 Furosemide 40 MG Notes: (Same No Longer [facility] Oral Tablet as: Lasix) Active 2019 Medical [Lasix] May cause GI Center upset. Give with food or milk. Meclizine Notes: (Same No Longer [facility] s as: Antivert) Active 2019 [facility] pyridostigmine 60 60 mg = 1 tab, No Longer 03/02 [facility] mg oral tablet PO, TID, # 180 Active 2018 Tn dical tab, 0 Center Refill(s) Hydroxyzine Notes: (Same [place] as: Vistaril) Active 2019 [facility] Insulin Glargine 15 unit, 0.15 No Longer [facility] 100 UNT/ML mL, Route: Active 2019 Medical Injectable SUB-Q, Drug Center Solution [Lantus] form: SOLN, Daily, Dosing Weight 90.909, kg, Start date: 02/28/19 9:00:00 CDT, Duration: 30 day, Stop date: 03/29/19 9:00:00 CDT, 0 Insulin Lispro Notes: (Same No Longer [facility] as: Humalog) Active 2019 Medical Roll in palms Center of hands gently; Do not shake vigorously. WASTE: F/P - Black; E - Municipal Trash Bin Stable for 28 days at room temperature. Expires in days from Date Seroquel Notes: (Same No Longer [place] as: SEROquel) Active 2019 Medical Center linezolid 600 mg, 1 tab, [place] Route: PO, Active 2019 Medical Drug form: Center TAB, [id number], Dosing Weight 90.909, kg, Start date: 02/26/19 17:00:00 CDT, Duration: 10 day, Stop date: 03/08/19 8:00:00 CDT, ABX Indication: Skin/Soft Tissue Infection, 0 Sulfamethoxazole 2 tab, Route: No Longer [place] 800 MG / PO, Drug Form: Active 2019 Medical Trimethoprim 160 TAB, Dosing Mitch ter MG Oral Tablet Weight 90.909, [Bactrim] kg, [id number], Start date: 02/26/19 17:00:00 CDT, Duration: 10 day, Stop date: 03/08/19 5:00:00 CDT, 0 Lactated Ringers Route: IV, Inactive [facility] Injection IV Total Volume: 2019 Medic al (ANES) 1000 mL 1,000, Start Cent er date: 02/26/19 13:00:00 CDT, Stop date: 02/26/19 14:00:00 CDT lidocaine (ANES) Route: IV, Inactive [facility] Drug form: 2018 Medical INJ, ONCE, Center Stop date: 02/26/19 12:48:00 CDT propofol (ANES) Route: IV, Inactive [place] Drug form: 2018 Medical INJ, ONCE, Center Stop date: 02/26/19 12:48:00 CDT fentaNYL (ANES) Route: IV, Inactive [place] Drug form: 2019 Medical INJ, ONCE, Center Stop date: 02/26/19 12:48:00 CDT phenylephrine Route: IV, Inactive [place] as (ANES) Drug form: 2018 Medical INJ, ONCE, Center Stop date: 02/26/19 12:48:00 CDT ePHEDrine (ANES) Route: IV, Inactive [facility] Drug form: 2019 Medical INJ, ONCE, Center Stop date: 02/26/19 12:48:00 CDT Hydralazine 10 mg, Route: [place]active [place] IVP, Q20Min, 2019 Medical Dosing Weight Center 90.909, kg, PRN Elevated BP, Start date: 02/26/19 12:36:00 CDT, Duration: 2 doses or times, Stop date: Limited # of times Labetalol 10 mg, Route: [place] IVP, Q5Min, 2019 Medical Dosing Weight Center 90.909, kg, PRN Elevated BP, Start date: 02/26/19 12:36:00 CDT, Duration: 5 doses or times, Stop date: Limited # of times Oxycodone 5 mg, Route: Inactive [place] Hydrochloride 5 MG PO, Drug form: [facility] Medical Oral Tablet TAB, Q4H, [place] Dosing Weight 90.909, kg, PRN Pain Score 4-6, Start date: 02/26/19 12:36:00 CDT, Duration: 30 day, Stop date: 03/28/19 12:35:00 CDT Flumazenil 0.2 mg, Route: [place]active [place] IVP, PRN, 2019 Medical Dosing Weight Center 90.909, kg, PRN Benzodiazepine Reversal, Initial dose, Start date: 02/26/19 12:36:00 CDT, Duration: 30 day, Stop date: 03/28/19 12:35:00 CDT Naloxone 0.4 mg, Route: Inactive [place] IVP, Q2MIN, 2019 Medical Dosing Weight Center 90.909, kg, PRN Narcotic Reversal, Start date: 02/26/19 12:36:00 CDT, Duration: 8 doses or times, Stop date: Limited # of times Ondansetron 4 mg, Route: Inactive [place] IVP, ONCE, 2019 Medical Dosing Weight Center 90.909, kg, PRN Nausea & Vomiting, Start date: 02/26/19 12:36:00 CDT insulin, isophane Notes: (Same No Longer [place] as: Humulin N) Active 2019 Medical Roll in palms Center of hands gently; Do not shake vigorously. WASTE: F/P - Black; E - Municipal Trash Bin Stable for 31 days at room temperature Expires in days from Date Labetalol 10 mg, Route: No Longer [place] IVP, Q5Min, Active 2018 Medical Dosing Weight Center 90.909, kg, PRN Elevated BP, Start date: 02/22/19 23:53:00 CDT, Duration: 5 doses or times, Stop date: Limited # of times Acetaminophen 1,000 mg, No Longer [place] Route: PO, Active 2018 Medical Drug form: Center TAB, ONCE, Dosing Weight 90.909, kg, PRN Pain Score 1-3, Start date: 02/22/19 23:53:00 CDT Oxycodone 5 mg, Route: [place] Hydrochloride 5 MG PO, Drug form: Active 2018 Medical Oral Tablet TAB, Q4H, Center Dosing Weight 90.909, kg, PRN Pain Score 4-6, Start date: 02/22/19 23:53:00 CDT, Duration: 30 day, Stop date: 03/24/19 23:52:00 CDT Flumazenil 0.2 mg, Route: No Longer [place] IVP, PRN, Active 2018 Medical Dosing Weight Center 90.909, kg, PRN Benzodiazepine Reversal, Initial dose, Start date: 02/22/19 23:53:00 CDT, Duration: 30 day, Stop date: 03/24/19 23:52:00 CDT Naloxone 0.4 mg, Route: No Longer [place] IVP, Q2MIN, Active 2018 Medical Dosing Weight Center 90.909, kg, PRN Narcotic Reversal, Start date: 02/22/19 23:53:00 CDT, Duration: 8 doses or times, Stop date: Limited # of times Ondansetron 4 mg, Route: [place]er [place] IVP, ONCE, Active 2018 Medical Dosing Weight Center 90.909, kg, PRN Nausea & Vomiting, Start date: 02/22/19 23:53:00 CDT Insulin regular 2 unit, Route: No Longer [place] SUB-Q, Sliding Active 2019 Medical Scale, Dosing Center Weight 90.909, kg, PRN Blood Glucose Results, Start date: 02/22/19 23:53:00 CDT, Duration: 30 day, Stop date: 03/24/19 23:52:00 CDT ertapenem Notes: No Longer [place] MEDICATION Active 2019 Medical WASTE Center Product Size: 1000 mg Product Wasted: ___ mg insulin, isophane Notes: (Same No Longer [place] as: Humulin N) Active 2019 Medical Roll in palms Center of hands gently; Do not shake vigorously. WASTE: F/P - Black; E - Municipal Trash Bin Stable for 31 days at room temperature Expires in days from Date Prednisone Notes: Take [place] Longer [place] with food. Active 2019 Medical Center Saline Flush 0.9% 10 mL, Route: Inactive [place] IVP, Drug 2019 Medical Form: INJ, Center Dosing Weight 90.909, kg, Q8H, Start date: 02/21/19 16:00:00 CDT, Duration: 30 day, Stop date: 03/23/19 8:00:00 CDT Lidocaine 5 mL, Route: Inactive [facility] Hydrochloride 10 INTRADERM, 2019 Medi roger MG/ML Injectable Dosing Weight C enter Solution 90.909, kg, ONCALL, For PICC line insertion., Start date: 02/21/19 15:00:00 CDT, Duration: 30 day, Stop date: 03/23/19 14:59:00 CDT Saline Flush 0.9% 10 mL, Route: Inactive [facility] IVP, Drug 2019 Medical Form: INJ, Center Dosing Weight 90.909, kg, PRN, PRN Line Flush, Start date: 02/21/19 14:42:00 CDT, Duration: 30 day, Stop date: 03/23/19 14:41:00 CDT Lidocaine 5 mL, Route: Inactive [facility] Hydrochloride 10 INTRADERM, 2019 Medi roger MG/ML Injectable Dosing Weight C enter Solution 90.909, kg, ONCALL, For PICC line insertion., Start date: 02/21/19 14:00:00 CDT, Duration: 30 day, Stop date: 03/23/19 13:59:00 CDT Saline Flush 0.9% 10 mL, Route: Inactive [place] IVP, Drug 2018 Medical Form: INJ, Center Dosing Weight 90.909, kg, PRN, PRN Line Flush, Start date: 02/21/19 13:20:00 CDT, Duration: 30 day, Stop date: 03/23/19 13:19:00 CDT Lidocaine 2 spray, Inactive [place] Hydrochloride 20 Route: TOP, 2019 Med ical MG/ML Topical ONCE, Start Center Concrete date: 02/21/19 13:20:00 CDT, Stop date: 02/21/19 13:20:00 CDT Lidocaine Notes: [facility]: Xylocaine) Active 2019 Medical MG/ML Injectable Center Solution Saline Flush 0.9% 10 mL, Route: Inactive [facility] IVP, Drug 2018 Medical Form: INJ, Center Dosing Weight 90.909, kg, PRN, PRN Line Flush, Start date: 02/21/19 11:54:00 CDT, Duration: 30 day, Stop date: 03/23/19 11:53:00 CDT Saline Flush 0.9% Notes: (Same No Longer [facility] as: BD Active 2019 Medical Posiflush) Center Lidocaine Notes: No Longer [facility] Hydrochloride 10 Preservative Active 2018 Me dical MG/ML Injectable free. (Same Ce nter Solution as: Xylocaine MPF) Saline Flush 0.9% Notes: (Same No Longer [facility] as: BD Active 2019 Medical Posiflush) Center insulin, isophane Notes: (Same Inactive [facility] as: Humulin N) 2019 Medical Roll in palms Center of hands gently; Do not shake vigorously. WASTE: F/P - Black; E - Municipal Trash Bin Stable for 31 days at room temperature Expires in days from Date Melatonin Notes: (Same No Longer [facility] s as: Melatonin) Active 2019 Medical Center Zyprexa Notes: (Same No Longer [facility] As: ZyPREXA Active 2019 Medical IM). Center insulin, isophane Notes: (Same Inactive [facility] as: Humulin N) 2019 Medical Roll in palms Center of hands gently; Do not shake vigorously. WASTE: F/P - Black; E - Municipal Trash Bin Stable for 31 days at room temperature Expires in days from Date insulin, isophane Notes: (Same Inactive [facility] as: Humulin N) 2019 Medical Roll in palms Center of hands gently; Do not shake vigorously. WASTE: F/P - Black; E - Municipal Trash Bin Stable for 31 days at room temperature Expires in days from Date Iohexol 100 mL, Route: Inactive [facility] IVP, Drug 2019 Medical Form: MORAIMA, [place] Dosing Weight 90.909, kg, ONCALL, STAT, Start date: 02/19/19 9:17:00 CDT, Duration: 1 doses or times, Dose = 2.2ml/kg, Max dose = 100ml -- "To be infused by Radiology Staff ONLY" insulin detemir Notes: Inactive [facility] s Non-Formulary 2019 Medical Drug (Same Center as [facility]) "Single Patient Use Only" Do not hold insulin without contacting prescriber WASTE: F/P - Black; E - Municipal Trash Bin Stable for 42 days at room temperature Expires in days from Date insulin detemir Notes: No Longer [place] Non-Formulary Active 2019 Medical Drug (Same Center as [facility]) "Single Patient Use Only" Do not hold insulin without contacting prescriber WASTE: F/P - Black; E - Municipal Trash Bin Stable for 42 days at room temperature Expires in days from Date Potassium Chloride Notes: (Same Inactive [facility] as: K-Dur ) 2019 Medical "Do Not Crush" Center Give with food and full glass of water For patients unable to swallow tablet, dissolve in one half glass of water. Allow about 2 minutes for the tablets to disintegrate. Stir before giving to prepare slurry and administer. Please exclude Patient’ s with feeding tube less than 14 [place] (Dobhoff, J-tube etc) and pediatric and patients. PlasmaLyte A Notes: (Same No Longer [place] PH-7.4 1,000 mL as: Isolyte S Active 2019 Tn dical PH 7.4) Center insulin detemir Notes: No Longer [place] Non-Formulary Active 2019 Medical Drug (Same Center as [facility]) "Single Patient Use Only" Do not hold insulin without contacting prescriber WASTE: F/P - Black; E - Municipal Trash Bin Stable for 42 days at room temperature Expires in days from Date Seroquel Notes: (Same No Longer [facility] as: SEROquel) Active 2019 Medical Center insulin detemir Notes: Inactive [place] Non-Formulary 2019 Medical Drug (Same Center as [facility]) "Single Patient Use Only" Do not hold insulin without contacting prescriber WASTE: F/P - Black; E - Municipal Trash Bin Stable for 42 days at room temperature Expires in days from Date Iohexol Notes: (same Inactive [facility] as:Omnipaque 2019 Medical 350). WASTE: Center F/P - Black; E - Municipal Trash Bin insulin detemir Notes: Inactive [place] Non-Formulary 2019 Medical Drug (Same Center as [facility]) "Single Patient Use Only" Do not hold insulin without contacting prescriber WASTE: F/P - Black; E - Municipal Trash Bin Stable for 42 days at room temperature Expires in days from Date vancomycin + 2001 mg: [facility] Sodium Chloride infuse over Active 2019 Medi roger 0.9% IV 250 mL 2.5 hours For Ce nter adult patients only: Round to nearest 250 mg per Medical Staff approval MEDICATION WASTE Product Size: 1000 mg Product Wasted: ___ mg ertapenem Notes: No Longer [facility] MEDICATION Active 2019 Medical WASTE Center Product Size: 1000 mg Product Wasted: ___ mg vancomycin + 2001 mg: Inactive [facility] Sodium Chloride infuse over 2019 Medi roger 0.9% IV 500 mL 2.5 hours For Ce nter adult patients only: Round to nearest 250 mg per Medical Staff approval MEDICATION WASTE Product Size: 1000 mg Product Wasted: ___ mg Famotidine Notes: (Same No Longer [facility] as as: Pepcid) Active 2019 Medical Center vancomycin + 2001 mg: Inactive [facility] Sodium Chloride infuse over 2019 Medi roger 0.9% IV 500 mL 2.5 hours For Ce nter adult patients only: Round to nearest 250 mg per Medical Staff approval MEDICATION WASTE Product Size: 1000 mg Product Wasted: ___ mg Vancomycin 1,000 mg, Inactive [facility] Route: IVPB, 2019 Medical Drug form: Center INJ, [id number], Dosing Weight 90.909, kg, Start date: 02/16/19 8:00:00 CDT, Duration: 7 day, Stop date: 02/23/19 0:00:00 CDT, ABX Indication: Skin/Soft Tissue Infection Humalog Notes: (Same No Longer [facility] as: Humalog) Active 2019 Medical Roll in palms Center of hands gently; Do not shake vigorously. WASTE: F/P - Black; E - Municipal Trash Bin Stable for 28 days at room temperature. Expires in days from Date Levemir Notes: No Longer [facility] Non-Formulary Active 2019 Medical Drug (Same Center as [facility]) "Single Patient Use Only" Do not hold insulin without contacting prescriber WASTE: F/P - Black; E - Municipal Trash Bin Stable for 42 days at room temperature Expires in days from Date Humalog Notes: (Same Inactive [place] as: Humalog) 2019 Medical Roll in palms Center of hands gently; Do not shake vigorously. WASTE: F/P - Black; E - Municipal Trash Bin Stable for 28 days at room temperature. Expires in days from Date Hydralazine Notes: (Same [place] Longer [place] Hydrochloride 25 as: Active 2019 Medical MG Oral Tablet Apresoline) Cente r May interfere w/enteral feedings Take With Food. Merrem Notes: Same as No Longer [place] alexis Merrem Active 2019 Medical MEDICATION Center WASTE Product Size: 500 mg Product Wasted: ___ mg Insulin Lispro Notes: (Same Inactive [place] as: Humalog) 2019 Medical Roll in palms Center of hands gently; Do not shake vigorously. WASTE: F/P - Black; E - Municipal Trash Bin Stable for 28 days at room temperature. Expires in days from Date Dextrose 50% 12.5 gm, 25 [place] Longer [place] Syringe mL, Route: Active 2019 Medical IVP, Drug Center Form: INJ, Dosing Weight 90.909, kg, PRN, PRN Blood Glucose Results, Start date: 02/13/19 20:33:00 CDT, Duration: 30 day, Stop date: 03/15/19 20:32:00 CDT, 0 Glucagon 1 mg, Route: No Longer [place] IM, Drug form: Active 2019 Medical PDR/INJ, PRN, Center Dosing Weight 90.909, kg, PRN Blood Glucose Results, Start date: 02/13/19 20:33:00 CDT, Duration: 30 day, Stop date: 03/15/19 20:32:00 CDT, 0 Insulin Lispro Notes: (Same No Longer [place] as: Humalog) Active 2019 Medical Roll in palms Center of hands gently; Do not shake vigorously. WASTE: F/P - Black; E - Municipal Trash Bin Stable for 28 days at room temperature. Expires in days from Date Dextrose 50% 25 mL, Route: Inactive [place] Syringe IVP, Dosing 2019 Medical Weight 90.909, Center kg, PRN, PRN Blood Glucose Results, Start date: 02/13/19 20:32:00 CDT, Duration: 30 day, Stop date: 03/15/19 20:31:00 CDT Glucagon 1 mg, Route: Inactive [place] IM, PRN, 2019 Medical Dosing Weight Center 90.909, kg, PRN Blood Glucose Results, Start date: 02/13/19 20:32:00 CDT, Duration: 30 day, Stop date: 03/15/19 20:31:00 CDT Insulin regular 2 unit, Route: Inactive [place] SUB-Q, 2019 Medical TID-Before Center Meals, Dosing Weight 90.909, kg, PRN Blood Glucose Results, Start date: 02/13/19 20:32:00 CDT, Duration: 30 day, Stop date: 03/15/19 20:31:00 CDT Morphine Notes: (Same No Longer [facility] as:MORPhine Active 2019 Medical Sulfate) Center Insulin Lispro Notes: (Same Inactive [facility] as: Humalog) 2019 Medical Roll in palms Center of hands gently; Do not shake vigorously. WASTE: F/P - Black; E - Municipal Trash Bin Stable for 28 days at room temperature. Expires in days from Date Saline Flush 0.9% Notes: (Same No Longer [facility] as: BD Active 2019 Medical Posiflush) Center Ativan Notes: (Same No Longer [facility] as: Ativan) Active 2019 Medical Center Lidocaine 5 mL, Route: Inactive [place] Hydrochloride 10 INTRADERM, 2019 Medi roger MG/ML Injectable Dosing Weight C enter Solution 90.909, kg, ONCALL, For PICC line insertion., Start date: 02/12/19 12:00:00 CDT, Duration: 30 day, Stop date: 03/14/19 11:59:00 CDT Saline Flush 0.9% Notes: (Same No Longer [place] as: BD Active 2019 Medical Posiflush) Center Morphine Notes: (Same Inactive [place] as:MORPhine 2019 Medical Sulfate) Center Isolyte S PH 7.4 Notes: (Same Inactive H [place] as: Isolyte S 2019 Medical PH 7.4) Center Isolyte S PH-7.4 Notes: (Same No Longer [place] (Bolus) IV as: Isolyte S Active 2019 Medical PH7.4) Center Ativan Notes: (Same Inactive [place] as: Ativan) 2019 Medical Center Ativan 1 mg, Route: Inactive [facility] IV, ONCE, 2019 Medical Dosing Weight Center 90.909, kg, Start date: 02/11/19 17:08:00 CDT, Stop date: 02/11/19 17:08:00 CDT Morphine Notes: (Same Inactive [place] as:MORPhine 2019 Medical Sulfate) Center Sertraline Notes: (Same No Longer [place] as as: Zoloft) Active 2019 Medical Center Insulin Lispro Notes: (Same No Longer [place] as: Humalog) Active 2019 Medical Roll in palms Center of hands gently; Do not shake vigorously. WASTE: F/P - Black; E - Municipal Trash Bin Stable for 28 days at room temperature. Expires in days from Date Insulin Lispro Notes: (Same Inactive [place] as: Humalog) 2019 Medical Roll in palms Center of hands gently; Do not shake vigorously. WASTE: F/P - Black; E - Municipal Trash Bin Stable for 28 days at room temperature. Expires in days from Date Haloperidol Notes: (Same No Longer [place] as: Haldol) Active 2019 Medical Center Morphine 1 mg, Route: Inactive [place] IV, ONCE, 2019 Medical Dosing Weight Center 90.909, kg, Priority: STAT, Start date: 02/10/19 13:32:00 CDT, Stop date: 02/10/19 13:32:00 CDT vancomycin 2001 mg: Inactive [place] infuse over 2019 Medical 2.5 hours Center [facility] Notes: No Longer [place] Non-Formulary Active 2019 Medical Drug (Same Center as [facility]) "Single Patient Use Only" Do not hold insulin without contacting prescriber WASTE: F/P - Black; E - Municipal Trash Bin Stable for 42 days at room temperature Expires in days from Date NS (Bolus) IV 500 mL, 500 Inactive [place] ml/hr, Infuse 2019 Medical Over: 1 hr, Center Route: IV, 500, Drug form: INJ, ONCE, Priority: STAT, Dosing Weight 90.909 kg, Start date: 02/09/19 11:18:00 CDT, Stop date: 02/09/19 11:18:00 CDT, 0 Vancomycin 100 ml/min, Inactive [place] alexis Time Critical 2019 Medical Medication, Center Start date: 02/09/19 8:00:00 CDT, Duration: 7 day, Stop date: 02/16/19 0:00:00 CDT, ABX Indication: Skin/Soft Tissue Infection [place] Notes: Same as No Longer [place] alexis [place] Active 2019 Medical MEDICATION Center WASTE Product Size: 500 mg Product Wasted: _0__ mg Vancomycin 2000 mg: Inactive [place] infuse over 2019 Medical 2.5 hours For Center adult patients only: Round to nearest 250 mg per Medical Staff approval MEDICATION WASTE Product Size: 1000 mg Product Wasted: ___ mg [place] S PH-7.4 Notes: (Same Inactive [facility] (Bolus) IV as: Isolyte S 2019 Medical PH 7.4) Center Clindamycin Notes: (Same No Longer [place] As: Cleocin) Active 2019 Medical Center [facility] Notes: No Longer [place] Non-Formulary Active 2019 Medical Drug (Same Center as [facility]) "Single Patient Use Only" Do not hold insulin without contacting prescriber WASTE: F/P - Black; E - Municipal Trash Bin Stable for 42 days at room temperature Expires in days from Date Humalog Notes: (Same No Longer [place] as: Humalog) Active 2019 Medical Roll in palms Center of hands gently; Do not shake vigorously. WASTE: F/P - Black; E - Municipal Trash Bin Stable for 28 days at room temperature. Expires in days from Date Dextrose 50% 12.5 gm, 25 No Longer [place] Syringe mL, Route: Active 2019 Medical IVP, Drug Center Form: INJ, Dosing Weight 90.909, kg, PRN, PRN Blood Glucose Results, Start date: 02/08/19 1:33:00 CDT, Duration: 30 day, Stop date: 03/10/19 1:32:00 CDT, 0 Glucagon 1 mg, Route: No Longer [place] IM, Drug form: Active 2018 Medical PDR/INJ, PRN, Center Dosing Weight 90.909, kg, PRN Blood Glucose Results, Start date: 02/08/19 1:33:00 CDT, Duration: 30 day, Stop date: 03/10/19 1:32:00 CDT, 0 Insulin Lispro Notes: (Same No Longer [place] as: Humalog) Active 2019 Medical Roll in palms Center of hands gently; Do not shake vigorously. WASTE: F/P - Black; E - Municipal Trash Bin Stable for 28 days at room temperature. Expires in days from Date Humalog Notes: (Same Inactive [facility] as: Humalog) 2019 Medical Roll in palms Center of hands gently; Do not shake vigorously. WASTE: F/P - Black; E - Municipal Trash Bin Stable for 28 days at room temperature. Expires in days from Date NS (Bolus) IV 500 mL, 500 Inactive [place] ml/hr, Infuse 2019 Medical Over: 1 hr, Center Route: IV, ONCE, Priority: STAT, Dosing Weight 90.909 kg, Start date: 02/07/19 22:50:00 CDT, Stop date: 02/07/19 22:50:00 CDT normal saline 0.9% 1,000 mL, No Longer [facility] IV 1,000 mL Rate: 75 Active 2019 Medical ml/hr, Infuse Center over: 13.3 hr, Route: IV, Dosing Weight 90.909 kg, Total Volume: 1,000, Start date: 02/07/19 22:50:00 CDT, Duration: 30 day, Stop date: 03/09/19 22:49:00 CDT, 1.99, m2, 0 remove patch 1 patch, No Longer [place] Route: TOP, Active 2018 Medical Bedtime, Drug Center form: ERFILM, Start date: 02/07/19 21:00:00 CDT, Duration: 30 day, Stop date: 03/08/19 21:00:00 CDT, 0 Humalog Notes: (Same Inactive [place] as: Humalog) 2019 Medical Roll in palms Center of hands gently; Do not shake vigorously. WASTE: F/P - Black; E - Municipal Trash Bin Stable for 28 days at room temperature. Expires in days from Date Insulin Lispro Notes: Roll in Inactive H [place] palms of hands 2019 Medical gently; do not Center shake vigorously. (Same as: Humalog) WASTE: F/P - Black; E - Municipal Trash Bin Stable for 28 days at room temperature. Expires in days from Insulin regular 10 unit, Inactive [place] as Route: SUB-Q, 2019 Medical ONCE, Dosing Center Weight 90.909, kg, Start date: 02/07/19 17:12:00 CDT, Stop date: 02/07/19 17:12:00 CDT Lidocaine 0.05 1 patch, No Longer [place] as MG/MG Transdermal Route: TOP, Active 2018 Me dical Patch Daily, Drug Center form: FILM, Start date: 02/07/19 14:00:00 CDT, Duration: 30 day, Stop date: 03/09/19 9:00:00 CDT, 0 Ergocalciferol 50,000 [place] [id number] UNT Oral IntlUnit, 1 Active 2019 Medic al Capsule cap, Route: Center PO, Drug form: CAP, Q7D, Dosing Weight 90.909, kg, Start date: 02/07/19 13:16:00 CDT, Duration: 30 day, Stop date: 04/04/19 9:00:00 CLINICAL PHARMACOLOGIST, 0 Ativan Notes: (Same No Longer [facility] as: Ativan) Active 2019 Medical [place] Calcium Carbonate Notes: No Longer [place] 1250 MG / (calcium Active 2019 [facility] Cholecalciferol carbonate-vit Ce nter 400 UNT Chewable D Tablet 500mg-400unit chew TAB) Same as: Oscal 500+D heparin Notes: porcine No Longer [place] heparin Active 2018 [facility] tramadol 50 mg, 1 tab, [place] Longer [place] hydrochloride 50 Route: PO, Active 2018 Medi roger MG Oral Tablet Drug form: Center TAB, Q6H, Dosing Weight 90.909, kg, PRN Pain Score 7-10, Start date: 02/06/19 11:20:00 CDT, Duration: 30 day, Stop date: 03/08/19 11:19:00 CDT, 0 sterile water 2.1 mL, Route: No Longer [facility]/06/ [facility] Active 2018 Medical Form: INJ, Center BID, PRN, Start date: 02/06/19 11:17:00 CDT, Duration: 30 day, Stop date: 03/08/19 11:16:00 CDT, For Zyprexa reconstitution , 0 olanzapine 10 mg, Route: No Longer [place] IM, Drug form: Active 2018 Medical INJ, BID, Center Dosing Weight 90.909, kg, PRN Agitation, Start date: 02/06/19 11:07:00 CDT, Duration: 30 day, Stop date: 03/08/19 11:06:00 CDT, 0 Sertraline Notes: (Same No Longer [facility] as as: Zoloft) Active 2019 [facility] Furosemide 40 MG Notes: (Same No Longer [facility] Oral Tablet as: Lasix) Active 2019 Medical [Lasix] May cause GI Center upset. Give with food or milk. Amlodipine Notes: (Same No Longer [place] as: Norvasc) Active 2019 Medical Center Synthroid Notes: Take 1 No Longer [place] as hour before or Active 2019 Medical 2 hours after Center meal; Enteral feeds may interefere with the absorption of this medication. (Same as:Synthroid) Tylenol Notes: Do not No Longer [place] exceed 4 Active 2019 Medical gm/day. (Same Center as: Tylenol) Isolyte S PH 7.4 Notes: (Same No Longer [place] 500 mL as: Isolyte S Active 2019 [facility] PH 7.4) Center Insulin Glargine 20 unit, 0.2 No Longer [place] mL, Route: Active 2018 [facility] SUB-Q, Drug Center form: SOLN, Daily, Dosing Weight 90.909, kg, Priority: NOW, Start date: 02/05/19 21:02:00 CDT, Duration: 30 day, Stop date: 03/07/19 9:00:00 CDT, 0 rosuvastatin Notes: (Same No Longer [place] As: Crestor) Active 2019 Medical [place] tramadol Notes: Not to Inactive [place] hydrochloride 50 exceed 2019 Medical MG Oral Tablet 400mg/day. Center (Same As: Ultram) Dextrose 50% 12.5 gm, 25 [place] Longer [place] Syringe mL, Route: Active 2018 Medical IVP, Drug Center Form: INJ, Dosing Weight 90.909, kg, PRN, PRN Blood Glucose Results, Start date: 02/05/19 16:39:00 CDT, Duration: 30 day, Stop date: 03/07/19 16:38:00 CDT, 0 Glucagon 1 mg, Route: No Longer [place] IM, Drug form: Active 2018 Medical PDR/INJ, PRN, Center Dosing Weight 90.909, kg, PRN Blood Glucose Results, Start date: 02/05/19 16:39:00 CDT, Duration: 30 day, Stop date: 03/07/19 16:38:00 CDT, 0 Insulin regular Notes: (Same No Longer H [place] as: Humulin R) Active 2019 Medical Roll in [place] Center of hands gently; Do not shake vigorously. WASTE: F/P - Black; E - Municipal Trash Bin Stable for 31 days at room temperature Expires in days from Date Mestinon Notes: (Same No Longer [place] as: Mestinon) Active 2019 Medical Center Prednisone 30 mg, 3 tab, [place] Longer [place] Route: PO, Active 2019 Medical Drug form: Center TAB, Daily, Dosing Weight 90.909, kg, Priority: NOW, Start date: 02/05/19 14:40:00 CDT, Duration: 30 day, Stop date: 03/07/19 9:00:00 CDT, 0 insulin lispro 100 12 unit, Active [place] units/mL SUB-Q, 2019 Medical injectable TID-Before Center solution Meals, 0 Refill(s) Insulin Glargine 34 unit, Active [place] as 100 UNT/ML SUB-Q, Daily, 2019 Medical Injectable 0 Refill(s) Center Solution [Lantus] Furosemide 40 MG 40 mg = 1 tab, Active [facility] Oral Tablet PO, BID 2019 Medical [Lasix] Diuretic, 0 Center Refill(s) Furosemide 40 MG Notes: (Same Inactive [facility] Oral Tablet as: Lasix) 2019 Medical [Lasix] May cause GI Center upset. Give with food or milk. Furosemide Notes: (Same [place] as: Lasix) 2019 Medical MEDICATION Center WASTE Product Size: 40 mg Product Wasted: ___ mg Sodium Chloride 3% Notes: SEE RT No Longer 01/07 [facility] inhalation DOCUMENTATION Active 2019 Medical solution (Same as: Center Hypertonic Saline 3%, Inhalation) Furosemide Notes: (Same [place] as: Lasix) 2019 Medical MEDICATION Center WASTE Product Size: 40 mg Product Wasted: ___ mg insulin detemir 36 unit, Active [place] 100 UNT/ML SUB-Q, BID, # 2019 Medical Injectable 15 mL, 3 Center Solution [Levemir] Refill(s), other Lasix Notes: (Same Inactive [facility] as: Lasix) 2019 [facility] Furosemide 40 MG Notes: (Same No Longer [facility] Oral Tablet as: Lasix) Active 2018 Medical [Lasix] May cause GI Center upset. Give with food or milk. Amlodipine Notes: (Same No Longer [place] as: Norvasc) Active 2019 [facility] Ramipril Notes: (Same No Longer [facility] as:Altace) Active 2019 [facility] ceFAZolin Notes: (Same Inactive [facility] as Ancef) 2019 [facility] Calcium Gluconate Notes: WASTE: Inactive [facility] F/P - Sink; E 2018 [facility] Trash Bin predniSONE 20 mg 40 mg = 2 tab, No Longer [facility] oral tablet PO, Daily, X Active 2018 Medical 10 day, # 20 Center tab, 0 Refill(s), other insulin lispro 100 12 unit, No Longer [place] units/mL SUB-Q, Active 2018 Medical injectable TID-Before Center solution Meals, # 10 mL, 0 Refill(s), other insulin detemir 36 unit, [place] Longer [place] 100 UNT/ML SUB-Q, BID, # Active 2018 Medical Injectable 30 mL, 0 Center Solution [Levemir] Refill(s), other albumin human 5% Notes: LOT#: Inactive [facility] intravenous M 2018 Medic al solution fg: Center (Same as: Albuminar) "blood product derivative&quo t; WASTE: F/P - Red; E -Red MEDICATION WASTE Product Size: 25 gm Product Wasted: ___ gm Prednisone Notes: Take No Longer [place] with food. Active 2019 [facility] Insulin Glargine 34 unit, 0.34 No Longer [place] 100 UNT/ML mL, Route: Active 2018 Medical Injectable SUB-Q, Drug Center Solution [Lantus] form: SOLN, Daily, Dosing Weight 92, kg, Start date: 01/01/19 9:00:00 CDT, Duration: 30 day, Stop date: 01/30/19 9:00:00 CDT, 0 Insulin Lispro Notes: (Same No Longer [facility] as: Humalog) Active 2019 Medical Roll in palms Center of hands gently; Do not shake vigorously. WASTE: F/P - Black; E - Municipal Trash Bin Stable for 28 days at room temperature. Expires in days from Date Insulin Glargine Notes: (Same No Longer [facility] 100 UNT/ML as: Lantus) Do Active 2019 Medica l Injectable not hold Center Solution [Lantus] insulin without contacting prescriber WASTE: F/P - Black; E - Municipal Trash Bin "single patient use only" Stable for 28 days at room temperature Expires in days from Date Calcium Gluconate Notes: WASTE: Inactive [facility] F/P - Sink; E 2019 [facility] Trash Bin albumin human 5% Notes: LOT#: Inactive [facility] intravenous M 2019 Medic al solution fg: Center (Same as: Albuminar) "blood product derivative&quo t; WASTE: F/P - Red; E -Red MEDICATION WASTE Product Size: 25 gm Product Wasted: _0__ gm Thyroxine Notes: Take 1 No Longer [place] hour before or Active 2019 Medical 2 hours after Center meal; Enteral feeds may interefere with the absorption of this medication. (Same as:Synthroid) insulin, isophane Notes: (Same Inactive [facility] as: Humulin N) 2019 Medical Roll in palms Center of hands gently; Do not shake vigorously. WASTE: F/P - Black; E - Municipal Trash Bin Stable for 31 days at room temperature Expires in days from Date Benzocaine 0.1 1 appl, Route: Inactive H [place] MG/MG Topical TOP, PRN, Drug 2019 Med ical Ointment form: OINT, Center PRN Pain Score 1-3, Start date: 12/30/18 0:39:00 CDT, Duration: 30 day, Stop date: 01/29/19 0:38:00 CDT phenol Notes: No Longer [place] Chloraseptic Active 2019 Medical Concrete (Same Center as: Chloraseptic, Sore Throat Concrete) WASTE: F/P - Black; E - Municipal Trash Bin insulin, isophane Notes: (Same No Longer [place] as: Humulin N) Active 2019 Medical Roll in palms Center of hands gently; Do not shake vigorously. WASTE: F/P - Black; E - Municipal Trash Bin Stable for 31 days at room temperature Expires in days from Date insulin, isophane 40 unit, Inactive [place] Route: SUB-Q, 2019 Medical Q24H, Dosing Center Weight 92, kg, Start date: 12/29/18 11:00:00 CDT, Duration: 30 day, Stop date: 01/27/19 11:00:00 CDT Ancef Notes: (Same No Longer [place] as Ancef) Active 2019 Medical Center Sulfamethoxazole Notes: One DS Inactive [place] 800 MG / tablet = 2019 Medical Trimethoprim 160 trimethoprim Ce nter MG Oral Tablet 160mg + [Bactrim] sulfamethoxazo le 800 mg Dose based on trimethoprim component On empty stomach with a glass of water. (Same As: Bactrim DS, Septra DS) docusate sodium Notes: (Same No Longer H [place] as: Colace) Active 2019 Medical (Do Not Crush) Center sennosides, RESIDENTIAL Notes: (Same No Longer [place] 8.6 MG Oral Tablet as: Senokot) Active 2019 Medical Center Prednisone Notes: Take No Longer [place] with food. Active 2019 Medical Center insulin, isophane Notes: (Same No Longer [place] as: Humulin N) Active 2019 Medical Roll in palms Center of hands gently; Do not shake vigorously. WASTE: F/P - Black; E - Municipal Trash Bin Stable for 31 days at room temperature Expires in days from Date insulin, isophane Notes: (Same Inactive [place] as: Humulin N) 2019 Medical Roll in palms Center of hands gently; Do not shake vigorously. WASTE: F/P - Black; E - Municipal Trash Bin Stable for 31 days at room temperature Expires in days from Date heparin sodium, Notes: porcine No Longer [place] porcine 2500 heparin Active 2019 Medical UNT/ML Injectable Center Solution Dextrose 50% 12.5 gm, 25 [place] Longer [place] Syringe mL, Route: Active 2018 Medical IVP, Drug Center Form: INJ, Dosing Weight 92, kg, PRN, PRN Blood Glucose Results, Start date: 12/27/18 15:14:00 CDT, Duration: 30 day, Stop date: 01/26/19 15:13:00 CDT, 0 Glucagon 1 mg, Route: No Longer [place] IM, Drug form: Active 2019 Medical PDR/INJ, PRN, Center Dosing Weight 92, kg, PRN Blood Glucose Results, Start date: 12/27/18 15:14:00 CDT, Duration: 30 day, Stop date: 01/26/19 15:13:00 CDT, 0 Insulin regular Notes: (Same No Longer [facility] as: Humulin R) Active 2019 Medical Roll in palms Center of hands gently; Do not shake vigorously. WASTE: F/P - Black; E - Municipal Trash Bin Stable for 31 days at room temperature Expires in days from Date insulin, isophane Notes: (Same No Longer [place] as: Humulin N) Active 2019 Medical Roll in palms Center of hands gently; Do not shake vigorously. WASTE: F/P - Black; E - Municipal Trash Bin Stable for 31 days at room temperature Expires in days from Date Zithromax 250 mg Notes: Take 1 No Longer [facility] oral tablet hour before or Active 2019 Medic al 2 hours after Center meals. (Same As: Zithromax) Lanolin 0.157 Notes: (Same No Longer [place] MG/MG / Menthol as: Active 2019 Medical 0.0044 MG/MG / Calmoseptine) Mitch ter Petrolatum 0.24 MG/MG / Zinc Oxide 0.206 MG/MG Topical Ointment Famotidine Notes: (Same No Longer [place] as: Pepcid) Active 2019 [facility] Center Midodrine Notes: (Same [place] Long[place] as:Proamatine) Active 2019 [facility] albumin human 5% Notes: LOT#: Inactive [place] intravenous 2019 Medica l solution Mfg: Center WASTE: F/P - Red; E -Red (Same as: Albuminar) "blood product derivative" Midodrine Notes: (Same Inactive [facility] as:Proamatine) 2019 [facility] Center azithromycin 500 Notes: Take 1 Inactive [facility] mg oral tablet hour before or 2019 Me dical 2 hours after Center meals. (Same As: Zithromax) Calcium Gluconate 3 gm, Route: Inactive [facility] IV, 2019 Medical Continuous, Center Dosing Weight 92, kg, Start date: 12/26/18 9:00:00 CDT, Duration: 30 day, Stop date: 01/25/19 8:59:00 CDT albumin human 5% 2.25 Liter, Inactive [facility] intravenous Route: IV, 2019 Medical solution Dosing Weight Center 92, kg, ONCE, Start date: 12/26/18 8:41:00 CDT, Stop date: 12/26/18 8:41:00 CDT, Indication: Plasmapheresis Norepinephrine Notes: Not for No Longer [facility] direct Active 2019 [facility] administration Center - DILUTE. Protect from light. (Same as:Levophed). Administer by either central venous catheter or peripherally-i nserted central catheter (PICC) line. Insulin regular Notes: Final No Longer [facility] 100 unit + Concentration Active 2019 [facility] 1unit/1ml Center WASTE: F/P - Black; E - Municipal Trash Bin Dextrose 50% 6.25 gm, 12.5 No Longer [facility] Syringe mL, Route: Active 2019 [facility] IVP, Drug Center Form: INJ, Dosing Weight 92, kg, PRN, PRN Abnormal Lab Result, Start date: 12/25/18 20:23:00 CDT, Duration: 30 day, Stop date: 01/24/19 20:22:00 CDT, 0 Famotidine Notes: (Same No Longer [place] as: Pepcid) Active 2019 [facility] Mestinon Notes: (Same No Longer [facility] as: Mestinon) Active 2019 [facility] Sodium Chloride 3% Notes: SEE RT No Longer 12/25 [facility] inhalation DOCUMENTATION Active 2019 Medical solution (Same as: [place] Hypertonic Saline 3%, Inhalation) fondaparinux Notes: (Same No Longer [facility] [place] as: Arixtra) Active 2019 [facility] Albuterol 1 MG/ML Notes: SEE RT No Longer [facility] Inhalant Solution DOCUMENTATION Active 2019 Medical (Same as: [place] Proventil) Calcium Gluconate Notes: WASTE: Inactive [facility] F/P - Sink; E 2019 [facility] Trash Bin albumin human 5% Notes: LOT#: Inactive [facility] intravenous M 2018 Medic al solution fg: Center (Same as: Albuminar) "blood product derivative&quo t; WASTE: F/P - Red; E -Red MEDICATION WASTE Product Size: 25 gm Product Wasted: ___ gm Prednisone Notes: Take No Longer [place] with food. Active 2019 [facility] Thyroxine Notes: Take 1 No Longer [place] hour before or Active 2019 Medical 2 hours after Center meal; Enteral feeds may interefere with the absorption of this medication. (Same as:Synthroid) ocular lubricant Notes: (Same No Longer [facility] as: Active 2019 [facility] Lacri-Lube, Center Puralube, Duratears Naturale, Artificial Tears, and Tears Again ) Prednisone 50 MG 50 mg = 1 tab, No Longer [facility] Oral Tablet PO, Daily, 0 Active 2018 Medical Refill(s) Center rosuvastatin 20 mg 20 mg = 1 tab, No Longer 11/30 [place] oral tablet PO, Bedtime, 0 Active 2018 Medic al Refill(s) Center ramipril 10 mg 10 mg = 1 cap, Active [facility] oral capsule PO, Daily, 0 2019 Medica l Refill(s) Center Amlodipine 10 mg, PO, Active [facility] Daily, 0 2018 Medical Refill(s) Center Furosemide 80 mg, PO, No Longer [facility] Daily, 0 Active 2018 Medical Refill(s) Center Potassium Chloride 20 mEq, PO, Active [facility] Daily, 0 2018 Medical Refill(s) Center Pyridostigmine 60 mg, PO, Active [place] Q8H, 0 2018 Medical Refill(s) Center sertraline 25 mg 25 mg = 1 tab, Active [facility] oral tablet PO, Daily, 0 2019 Medical Refill(s) Center Thyroxine 88 microgram, Active [facility] PO, Daily, 0 2018 Medical Refill(s) Center Alendronic acid 70 70 mg = 1 tab, Active [facility] MG Oral Tablet PO, 0 2018 Medical [Fosamax] Refill(s) [place] Levemir SUB-Q, 0 No Longer [facility] Refill(s) Active 2019 Medical Center Trulicity Pen SUB-Q, 0 Active [facility] Refill(s) 2019 Medical [place] Famotidine 20 mg, 2 mL, No Longer [place] Route: IVP, Active 2018 Medical Drug form: [place] INJ, Q12H, Dosing Weight 102.273, kg, Start date: 12/24/18 21:00:00 CDT, Duration: 30 day, Stop date: 01/23/19 9:00:00 CDT, 0 docusate sodium Notes: (Same No Longer H [place] as: Colace) [facility] sennosides, RESIDENTIAL Notes: (Same No Longer H [place] 8.6 MG Oral Tablet as: Senokot) Active 2019 [facility] Ceftriaxone Notes: [place] MEDICATION Active 2019 Medical WASTE Center Product Size: 2000 mg Product Wasted: ___ mg Albuterol 0.833 Notes: (Same No Longer H [place] MG/ML / as: Duoneb) Active 2019 [facility] Ipratropium [place] 0.167 MG/ML Inhalant Solution [DuoNeb] chlorhexidine Notes: (Same No Longer [place] gluconate 1.2 As: Peridex) Active 2019 Medic al MG/ML Mouthwash [place] Flagyl 500 mg, 100 No Longer [place] mL, Route: Active 2018 [facility] IVPB, Drug Center form: INJ, [id number], Dosing Weight 102.273, kg, Start date: 12/24/18 19:00:00 CDT, Duration: 7 day, Stop date: 12/31/18 6:00:00 CDT, ABX Indication: Bacteremia, 0 Vancomycin 2001 mg: No Longer [place] infuse over Active 2019 Medical 2.5 hours For Center adult patients only: Round to nearest 250 mg per medical staff approval MEDICATION WASTE Product Size: 1000 mg Product Wasted: ___ mg Tylenol 100.4 F, No Longer [place] Start date: Active 2019 Medical 12/24/18 [place] 18:39:00 CDT, Duration: 30 day, Stop date: 01/23/19 18:38:00 CDT, 0 Zofran Notes: No Longer [facility] MEDICATION Active 2019 Medical WASTE Center Product Size: 4 mg Product Wasted: ___ mg Fentanyl 1,000 No Longer [place] microgram, 20 Active 2019 Medical mL, Rate: Center Titrate, Start Dose: 50 microgram/hr, Titration: 25 microgram/hour every 15 minutes, Goal(s): RASS 0, Max Dose: 300 microgram/hr, Route: IV, Dosing Weight 102.273 kg, Total Volume: 20, Start date: 12/24/18 18:39:00 CDT, D... Potassium Chloride Notes: (Same No Longer [place] as: KCL) Active 2019 Medical Infuse no Center faster than 10 mEq/hr if given peripherally. sodium phosphate Notes: Infuse No Longer [facility] over 4 hour. Active 2018 Medical Do not infuse Center phosphorous concurrently in the same line as TPN or IVF that contains calcium. For double lumen central lines, phosphorous may be infused in a separate lumen from TPN. potassium Notes: (Same No Longer [facility] s phosphate as: K Active 2018 [facility] Phosphate.) Center Do not infuse phosphorous concurrently in the same line as TPN or IVF that contains calcium. For double lumen central lines, phosphorous may be infused in a separate lumen from TPN. 1 mMol phoshate has 1.47 mEq potassium Infuse over 4 hours potassium Notes: (Same No Longer [facility] s phosphate-sodium as: Phos-NaK) 2018 edical phosphate 250 Each 1.5 gm Center mg-280 mg-160 mg pkt has 250mg oral powder for phosphorous. reconstitution Mix w/2.5oz water and stir. Magnesium Sulfate Notes: WASTE: No Longer [facility] F/P - Sink; E Active 2018 [facility] Trash Bin Magnesium Oxide Notes: (Same No Longer [facility] as: Mag-Ox Active 2018 [facility] 400) Magnesium Center oxide [id number] elemental magnesium Dose=____mg magnesium oxide (___mg elemental magnesium) Calcium Gluconate Notes: WASTE: No Longer [facility] F/P - Sink; E Active 2018 [facility] Trash Bin Calcium Carbonate Notes: (Same No Longer [place] 500 MG Chewable As: Tums) Active 2018 Medica l Tablet Calcium Center Carbonate 500 mg = 200 mg elemental calcium Dose = mg calcium carbonate ( mg elemental calcium) Dextrose 50% 12.5 gm, 25 [place] Syringe mL, Route: Active 2018 [facility] IVP, Drug Center Form: INJ, Dosing Weight 102.273, kg, PRN, PRN Blood Glucose Results, Start date: 12/24/18 18:37:00 CDT, Duration: 30 day, Stop date: 01/23/19 18:36:00 CDT, 0 Glucagon 1 mg, Route: No Longer [place] IM, Drug form: Active 2019 Medical PDR/INJ, PRN, Center Dosing Weight 102.273, kg, PRN Blood Glucose Results, Start date: 12/24/18 18:37:00 CDT, Duration: 30 day, Stop date: 01/23/19 18:36:00 CDT, 0 chlorhexidine Notes: (Same No Longer [facility] gluconate 1.2 As: Peridex) Active 2019 Medic al MG/ML Mouthwash Center Insulin regular Notes: Roll in No Longer [facility] palms of hands Active 2019 Medical gently; do not Center shake vigorously. (Same as: Humulin R) WASTE: F/P - Black; E - Municipal Trash Bin Stable for 31 days at room temperature Expires in days from Norepinephrine Notes: Not for No Longer [facility] direct Active 2019 Medical administration Center - DILUTE. Protect from light. (Same as:Levophed). Administer by either central venous catheter or peripherally-i nserted central catheter (PICC) line. Isolyte S PH 7.4 Notes: (Same No Longer [facility] 1,000 mL as: Isolyte S Active 2019 [facility] PH 7.4) Center Ibuprofen Notes: (Same Inactive [facility] as: Motrin) 2019 Medical "Do Not Crush" Center Give with food. Tylenol Notes: Max Inactive [facility] acetaminophen 2019 Medical 4000 mg/day (4 Center gm/day). (Same as: Tylenol Extra Strength) Mestinon Notes: (Same Inactive 09/23[facility] as: Mestinon) 2019 [facility] Center Insulin Lispro Notes: (Same Inactive 09/23[facility] as: Humalog) 2019 Medical Roll in palms Center of hands gently; Do not shake vigorously. WASTE: F/P - Black; E - Municipal Trash Bin Stable for 28 days at room temperature. Expires in days from Date Glucagon 1 mg, Route: Inactive [facility] IM, Drug form: 2019 Medical PDR/INJ, PRN, Center Dosing Weight 91.818, kg, PRN Blood Glucose Results, Start date: 09/23/18 3:43:00 CDT, Duration: 30 day, Stop date: 10/23/18 3:42:00 CDT Dextrose 50% 12.5 gm, 25 Inactive [place] as Syringe mL, Route: 2019 Medical IVP, Drug Center Form: INJ, Dosing Weight 91.818, kg, PRN, PRN Blood Glucose Results, Start date: 09/23/18 3:43:00 CDT, Duration: 30 day, Stop date: 10/23/18 3:42:00 CDT Arixtra Notes: (Same No Longer [place] as: Arixtra) Active 2019 [facility] Famotidine Notes: (Same No Longer [place] as as: Pepcid) Active 2019 [facility] sennosides, RESIDENTIAL Notes: (Same No Longer H [place] 8.6 MG Oral Tablet as: Senokot) Active 2019 [facility] Center ropinirole Notes: (Same No Longer [place] as: Requip) Active 2019 [facility] Center Ramipril Notes: (Same No Longer [place] as:Altace) Active 2019 [facility] Prednisone Notes: Take [place] Longer [place] with food. Active 2019 [facility] Furosemide 20 MG Notes: (Same No Longer [place] Oral Tablet as: Lasix) Active 2019 Medical May cause GI Center upset. Give with food or milk. Amlodipine Notes: (Same No Longer [place] as: Norvasc) Active 2019 [facility] Center Docusate Sodium 50 Notes: (Same No Longer [place] MG / sennosides, as Senokot-S) Active 2019 edical RESIDENTIAL 8.6 MG Oral Equiv. to Center Tablet Cassidy-Colace. Levothroid 88 mcg 88 microgram = Active [place] (0.088 mg) oral 1 tab, PO, 2019 Medic al tablet Daily, 0 Center Refill(s) rosuvastatin Notes: (Same [place] Long[place] As: Crestor) Active 2019 Medical Center Insulin Glargine 20 unit, 0.2 No Longer [place] 100 UNT/ML mL, Route: Active 2019 Medical Injectable SUB-Q, Drug Center Solution form: SOLN, Bedtime, Dosing Weight 91.818, kg, Start date: 09/21/18 21:00:00 CDT, Duration: 30 day, Stop date: 10/20/18 21:00:00 CDT Sertraline Notes: (Same No Longer [place] as: Zoloft) Active 2019 [facility] Center Pyridostigmine Notes: (Same No Longer [place] as: Mestinon) Active 2019 Medical Center Dextrose 50% 25 gm, 50 mL, No Longer [facility] Syringe Route: IVP, Active 2019 Medical Drug Form: Center INJ, Dosing Weight 91.818, kg, PRN, PRN Abnormal Lab Result, Start date: 09/21/18 18:24:00 CDT, Duration: 30 day, Stop date: 10/21/18 18:23:00 CDT Regular Insulin, Notes: (Same No Longer [place] Human 100 UNT/ML as: Humulin R) Active 2019 Medical Injectable Roll in palms Center Solution of hands gently; Do not shake vigorously. WASTE: F/P - Black; E - Municipal Trash Bin Stable for 31 days at room temperature Expires in days from Date Docusate Notes: (Same No Longer [facility] as: Colace) Active 2019 Medical (Do Not Crush) Center Occupational See On Hold [place] Therapy Instructions, 2019 [facility] Evaluate and Treat __3_ times per week for __4__ weeks, # 1 bag, 0 Refill(s) Physical Therapy See On Hold [place] Instructions, 2019 [facility] Evaluate and Treat _3__ times per week for __4__ weeks, # 1 bag, 0 Refill(s) Ramipril Notes: (Same Inactive [place] as:Altace) 2019 [facility] Furosemide 20 MG 20 mg = 1 tab, On Hold [facility] Oral Tablet PO, Every 2019 Medical Other Day, # Center 15 tab, 3 Refill(s) amLODIPine 10 mg 10 mg = 1 tab, On Hold [facility] oral tablet PO, Daily, # 2019 Medical 30 tab, 3 Center Refill(s) predniSONE 20 mg 60 mg = 3 tab, On Hold [place] oral tablet PO, Daily, X 2019 Medical 30 day, # 90 Center tab, 0 Refill(s) pyridostigmine 60 60 mg = 1 tab, On Hold [place] mg oral tablet PO, Q8Hnow, # 2019 Med ical 90 tab, 3 Center Refill(s) ramipril 5 mg oral 10 mg = 2 cap, On Hold [place] capsule PO, Daily, # 2019 Medical 60 cap, 3 Center Refill(s) sennosides, RESIDENTIAL 8.6 mg = 1 [place] 8.6 MG Oral Tablet tab, PO, BID, 2019 Medical X 30 day, # 60 Center tab, 3 Refill(s) sertraline 25 mg 25 mg = 1 tab, On Hold [place] oral tablet PO, Q24H, # 30 2019 Medic al tab, 0 Center Refill(s) insulin, isophane Notes: (Same No Longer [place] as: Humulin N) Active 2019 Medical Roll in palms Center of hands gently; Do not shake vigorously. WASTE: F/P - Black; E - Municipal Trash Bin Stable for 31 days at room temperature Expires in days from Date gabapentin 300 MG 300 mg, Route: Inactive [place] Oral Capsule PO, Drug form: 2019 Medi roger CAP, ONCE, Center Dosing Weight 91.378, kg, Start date: 09/18/18 0:54:00 CDT, Stop date: 09/18/18 0:54:00 CDT normal saline 0.9% 1,000 mL, No Longer 09/18/ H [place] IV 1,000 mL Rate: 75 Active 2019 Medical ml/hr, Infuse Center over: 13.3 hr, Route: IV, Dosing Weight 91.378 kg, Total Volume: 1,000, Start date: 09/18/18 0:54:00 CDT, Duration: 30 day, Stop date: 10/18/18 0:53:00 CDT, 1.99, m2 ramipril 5 mg oral 10 mg = 2 cap, No Longer 08/30 [place] capsule PO, Daily, # Active 2019 Medical 30 cap, 1 Center Refill(s), Pharmacy: [id number] metoprolol 25 mg = 1 tab, [place] Longer [place] tartrate 25 mg PO, Q12H, # 60 Active 2019 Me dical oral tablet tab, 1 Center Refill(s), Pharmacy: [id number] Furosemide 20 MG 20 mg = 1 tab, No Longer [place] Oral Tablet PO, Every Active 2019 Medical Other Day, # Center 30 tab, 1 Refill(s), Pharmacy: [id number] amLODIPine 10 mg 10 mg = 1 tab, No Longer [place] oral tablet PO, Daily, # Active 2019 Medical 30 tab, 1 Center Refill(s), Pharmacy: [id number] sertraline 25 mg 25 mg = 1 tab, No Longer [place] oral tablet PO, Q24H, # 30 Active 2019 Medic al tab, 1 Center Refill(s), Pharmacy: [id number] sennosides, RESIDENTIAL 8.6 mg = 1 No Longer [place] 8.6 MG Oral Tablet tab, PO, BID, Active 2019 Medical # 60 tab, 0 Center Refill(s), Pharmacy: [facility]/[facility][id number] pyridostigmine 60 60 mg = 1 tab, No Longer 09/17 [place] mg oral tablet PO, Q8Hnow, # Active 2019 Med ical 90 tab, 1 Center Refill(s), Pharmacy: [facility]/[facility][id number] predniSONE 20 mg 60 mg = 3 tab, No Longer [place] oral tablet PO, Daily, # Active 2019 Medical 30 tab, 1 Center Refill(s), Pharmacy: [facility][id number] Insulin regular Notes: (Same No Longer 09/17/ H [place] as: Humulin R) Active 2019 Medical Roll in palms Center of hands gently; Do not shake vigorously. WASTE: F/P - Black; E - Municipal Trash Bin Stable for 31 days at room temperature Expires in days from Date Glucagon 1 mg, Route: No Longer [place] IM, Drug form: Active 2019 Medical PDR/INJ, PRN, Center Dosing Weight 91.378, kg, PRN Blood Glucose Results, Start date: 09/17/18 18:52:00 CDT, Duration: 30 day, Stop date: 10/17/18 18:51:00 CDT Dextrose 50% in 25 gm, 50 mL, No Longer [place] Water (bolus) IV Route: IVP, Active 2019 Med ical Drug Form: Center INJ, Dosing Weight 91.378, kg, PRN, PRN Blood Glucose Results, Start date: 09/17/18 18:52:00 CDT, Duration: 30 day, Stop date: 10/17/18 18:51:00 CDT Melatonin 0.25 1 mg, Route: Inactive [place] mg/mL oral liquid PO, Dosing 2019 Med ical Weight 91.378, Center kg, Bedtime, Start date: 09/16/18 21:00:00 CDT, Duration: 30 day, Stop date: 10/15/18 21:00:00 CDT insulin, isophane Notes: (Same No Longer [facility] as: Humulin N) Active 2019 Medical Roll in palms Center of hands gently; Do not shake vigorously. WASTE: F/P - Black; E - Municipal Trash Bin Stable for 31 days at room temperature Expires in days from Date Amlodipine Notes: (Same No Longer [place] as: Norvasc) Active 2019 Medical Center melatonin 1 mg/mL 1 mg, 1 mL, Inactive [facility] oral solution Route: PO, 2019 Medical Drug Form: [place] LIQ, Dosing Weight 91.378, kg, ONCE, STAT, Start date: 09/16/18 0:53:00 CDT, Stop date: 09/16/18 0:53:00 CDT insulin, isophane Notes: (Same Inactive [facility] as: Humulin N) 2019 Medical Roll in palms Center of hands gently; Do not shake vigorously. WASTE: F/P - Black; E - Municipal Trash Bin Stable for 31 days at room temperature Expires in days from Date Insulin regular Notes: (Same Inactive [place] as: Humulin R) 2019 Medical Roll in palms Center of hands gently; Do not shake vigorously. WASTE: F/P - Black; E - Municipal Trash Bin Stable for 31 days at room temperature Expires in days from Date Miralax Notes: No Longer [place] Dissolve in 8 Active 2019 Medical oz of water or Center juice. (Same as: Miralax) lansoprazole Notes: Take 1 No Longer [place] hour before or Active 2019 Medical 2 hours after Center meal; Expires in 14 days. Shake well before use. (Same as:Prevacid) Compounded Product - formulation not commercially available insulin, isophane Notes: (Same Inactive [facility] as: Humulin N) 2019 Medical Roll in palms Center of hands gently; Do not shake vigorously. WASTE: F/P - Black; E - Municipal Trash Bin Stable for 31 days at room temperature Expires in days from Date Saline Flush 0.9% Notes: (Same No Longer [place] as: BD Active 2019 Medical Posiflush) Center Lasix Notes: (Same Inactive [facility] as: Lasix) 2019 Medical MEDICATION Center WASTE Product Size: 40 mg Product Wasted: ___ mg docusate sodium Notes: (Same No Longer M H [place] 100 mg oral as: Colace) Active 2019 Medical capsule (Do Not Crush) Center sennosides, RESIDENTIAL Notes: (Same No Longer M H [place] as: Senokot) Active 2019 Medical Center insulin, isophane Notes: (Same Inactive [facility] as: Humulin N) 2019 Medical Roll in palms Center of hands gently; Do not shake vigorously. WASTE: F/P - Black; E - Municipal Trash Bin Stable for 31 days at room temperature Expires in days from Date Insulin regular Notes: (Same No Longer M H [place] as: Humulin R) Active 2019 Medical Roll in steward Center of hands gently; Do not shake vigorously. WASTE: F/P - Black; E - Municipal Trash Bin Stable for 31 days at room temperature Expires in days from Date Glucagon 1 mg, Route: No Longer [place] IM, Drug form: Active 2018 Medical PDR/INJ, PRN, Center Dosing Weight 91.378, kg, PRN Blood Glucose Results, Start date: 09/14/18 16:20:00 CDT, Duration: 30 day, Stop date: 10/14/18 16:19:00 CDT Dextrose 50% 12.5 gm, 25 [place] Syringe mL, Route: Active 2018 [facility] IVP, Drug Center Form: INJ, Dosing Weight 91.378, kg, PRN, PRN Blood Glucose Results, Start date: 09/14/18 16:20:00 CDT, Duration: 30 day, Stop date: 10/14/18 16:19:00 CDT Saline Flush 0.9% Notes: (Same No Longer [place] as: BD Active 2018 [facility] Posiflush) Center Nystatin 100 Notes: (Same [place] Longer [place] UNT/MG Topical as:Mycostatin, Active 2018 [place] dical Powder Nilstat) For Center external use only. Amlodipine Notes: (Same No Longer [place] as: Norvasc) Active 2019 Medical Center Lasix Notes: (Same Inactive [place] as: Lasix) 2019 Medical MEDICATION Center WASTE Product Size: 40 mg Product Wasted: ___ mg Albuterol 0.833 Notes: (Same No Longer H [place] MG/ML / as: Duoneb) Active 2019 Medical Ipratropium Center [place] 0.167 MG/ML Inhalant Solution [DuoNeb] Potassium Chloride Notes: (Same Inactive [place] 1.33 MEQ/ML Oral as: Potassium 2018 edical Solution Chloride) Center Sertraline Notes: (Same No Longer [place] as: Zoloft) Active 2019 Medical [place] Immunoglobulin G 25 gm, Route: No Longer [place] IV, Q24H, Active 2018 Medical Dosing Weight Center 91.378, kg, Start date: 09/13/18 21:00:00 CDT, Duration: 1 day, Stop date: 09/13/18 21:00:00 CDT, Indication: Myasthenia gravis metoprolol Notes: (Same No Longer [place] as tartrate as: Lopressor) Active 2018 [facility] Gamunex-C 25 gm + Notes: WASTE: Inactive [place] empty container 1 F/P - Red; E 2018 M edical bag -Red Lot Center # ____Mfg: (Gamunex - C) "blood product derivative" iodixanol 100 mL, Route: Inactive [place] IVP, Drug 2018 Medical Form: SOLN, [place] Dosing Weight 91.378, kg, ONCALL, STAT, Start date: 09/13/18 11:50:00 CDT, Duration: 1 doses or times, Dose = 2.2ml/kg, Max dose = 100ml -- "To be infused by Radiology Staff ONLY" Prednisone Notes: Take No Longer [place] with food. Active 2018 [facility] pantoprazole Notes: For IV No Longer [place] push Active 2018 [facility] reconstitute Center with 10 ml 0.9% sodium chloride and push over 2 minutes. (Same as: Protonix) chlorhexidine Notes: (Same No Longer [place] gluconate 1.2 As: Peridex) Active 2018 Medic al MG/ML Mouthwash Center Norepinephrine Notes: Not for Inactive [facility] direct 2019 Medical administration Center - DILUTE. Protect from light. (Same as:Levophed). Administer by either central venous catheter or peripherally-i nserted central catheter (PICC) line. propofol 10 mg/mL Notes: If No Longer [place] (Titrate.) IV Diprivan - Active 2018 Medical 1,000 mg change bottle Center & tubing every 12 hr Per state nursing law propofol can only be given by a nurse if patient is intubated or being intubated (unless the nurse is a ACCOUNTS RECEIVABLE MANAGER). Same as: Diprivan Rocuronium Notes: (Same [place] as: Zemeron) 2019 Medical Center Fentanyl Notes: (Same Inactive [facility] as: Sublimaze) 2019 [facility] Preservative Center free. Propofol Notes: If Inactive [place] Diprivan - 2019 Medical change bottle Center & tubing every 12 hr Per state nursing law propofol can only be given by a nurse if patient is intubated or being intubated (unless the nurse is a ACCOUNTS RECEIVABLE MANAGER). Same as: Diprivan ocular lubricant Notes: (Same No Longer [place] as: Active 2019 Medical Lacri-Lube, Center Puralube, Duratears Naturale, Artificial Tears, and Tears Again ) normal saline 0.9% 1,000 mL, No Longer [place] IV 1,000 mL Rate: 75 Active 2018 Medical ml/hr, Infuse Center over: 13.3 hr, Route: IV, Dosing Weight 91.378 kg, Total Volume: 1,000, Start date: 09/13/18 5:43:00 CDT, Duration: 30 day, Stop date: 10/13/18 5:42:00 CDT, 1.99, m2 chlorhexidine Notes: (Same No Longer [place] gluconate 1.2 As: Peridex) Active 2018 Medic al MG/ML Mouthwash Center Insulin regular Notes: Final No Longer [place] 100 unit + Concentration Active 2018 [facility] 1unit/1ml Center WASTE: F/P - Black; E - Municipal Trash Bin Dextrose 50% 6.25 gm, 12.5 No Longer [place] Syringe mL, Route: Active 2018 Medical IVP, Drug Center Form: INJ, Dosing Weight 91.378, kg, PRN, PRN Abnormal Lab Result, Start date: 09/13/18 1:52:00 CDT, Duration: 30 day, Stop date: 10/13/18 1:51:00 CDT Adult Parenteral Notes: Must No Longer H [place] Nutrition Custom - use 1.2 micron Active 2018 Medical Peripheral (PPN filter AND Cente r not TPN) 2,040 mL Lipids should not be administered to patients who are allergic to soy, fish, egg or peanuts. Immunoglobulin G 50 gm, Route: Inactive [facility] IV, Q24H, 2019 Medical Dosing Weight Center 91.378, kg, Start date: 09/12/18 21:00:00 CDT, Duration: 1 day, Stop date: 09/12/18 21:00:00 CDT, Indication: Myasthenia gravis Gamunex-C 75 gm + Route: IVPB, Inactive [place] empty container 1 Drug form: 2019 Med ical bag SOLN, Bedtime, Center Start date: 09/12/18 21:00:00 CDT, Duration: 1 doses or times, Stop date: 09/12/18 21:00:00 CDT, Indication: Myasthenia gravis Gamunex-C 50 gm + Notes: WASTE: Inactive [place] empty container 1 F/P - Red; E 2018 edical bag -Red Lot Center # ____Mfg: (Gamunex - C) Non-Formulary "blood product derivative" Pyridostigmine Notes: (Same No Longer [facility] as: Mestinon) Active 2019 [facility] Calcium Carbonate Notes: (Same No Longer [place] 500 MG Chewable As: Tums) Active 2018 Medica l Tablet Calcium Center Carbonate 500 mg = 200 mg elemental calcium Dose = mg calcium carbonate ( mg elemental calcium) Calcium Gluconate Notes: WASTE: No Longer [facility] F/P - Sink; E Active 2019 [facility] Bin Magnesium Oxide Notes: (Same No Longer [facility] as: Mag-Ox Active 2019 Medical 400) Magnesium Center oxide [id number] elemental magnesium Dose=____mg magnesium oxide (___mg elemental magnesium) Magnesium Sulfate Notes: WASTE: No Longer [facility] F/P - Sink; E Active 2019 [facility] Trash Bin potassium Notes: (Same [place] Long[place] phosphate-sodium as: K-Phos Active 2019 [facility] roger phosphate 250 Neutral, Center mg-280 mg-160 mg Phospha 250 oral powder for Neutral) reconstitution Potassium Chloride Notes: (Same No Longer [place] as: K-Dur 20) Active 2019 [facility] "Do Not Crush" Center Give with food and full glass of water For patients unable to swallow tablet, dissolve in one half glass of water. Allow about 2 minutes for the tablets to disintegrate. Stir before giving to prepare slurry and administer. Please exclude Patient’ s with feeding tube less than 14 [place] (Dobhoff, J-tube etc) and pediatric and patients. sodium phosphate Notes: Infuse No Longer [place] over 4 hour. Active 2019 [facility] Do not infuse Center phosphorous concurrently in the same line as TPN or IVF that contains calcium. For double lumen central lines, phosphorous may be infused in a separate lumen from TPN. potassium Notes: ([facility] K Active 2019 [facility] Phosphate.) Center Do not infuse phosphorous concurrently in the same line as TPN or IVF that contains calcium. For double lumen central lines, phosphorous may be infused in a separate lumen from TPN. 1 mMol phoshate has 1.47 mEq potassium Infuse over 4 hours benzocaine topical Notes: (Same No Longer [place] gel As: Maximum Active 2019 [facility] Orajel ) Immunoglobulin G 75 gm, Route: Inactive [place] IV, Drug form: 2019 Medical INJ, Q24H, Center Dosing Weight 91.378, kg, Start date: 09/12/18 12:00:00 CDT, Duration: 1 doses or times, Stop date: 09/12/18 12:00:00 CDT, Indication: Myasthenia gravis Magnesium Sulfate Notes: WASTE: Inactive [place] F/P - Sink; E 2019 [facility] Trash Bin Calcium Gluconate Notes: WASTE: Inactive [facility] F/P - Sink; E 2019 [facility] Trash Bin Pyridostigmine Notes: (Same No Longer [place] as: Mestinon) Active 2019 [facility] Bacitracin 1 appl, Route: No Longer [place] RIGHT EYE, Active 2019 Medical Q4H, Drug Center form: OINT, Start date: 09/11/18 12:00:00 CDT, Duration: 30 day, Stop date: 10/11/18 8:00:00 CDT Labetalol 20 mg, 4 mL, [place] Longer [place] Route: IV, Active 2018 Medical Drug form: Center INJ, Q10Min, Dosing Weight 91.378, kg, PRN Hypertension, Start date: 09/11/18 10:49:00 CDT, Duration: 30 day, Stop date: 10/11/18 10:48:00 CDT Hydralazine Notes: (Same [place] Longer [place] as: Active 2019 Medical Apresoline) Center metoprolol Notes: (Same No Longer [place] as extended release as: Toprol XL) Active 2018 Medical May split Center tab, but do not crush. Ramipril Notes: (Same No Longer [place] as:Altace) Active 2019 Medical Center fondaparinux Notes: (Same No Longer [place] as: Arixtra) Active 2019 Medical Center Amlodipine Notes: (Same No Longer [place] as: Norvasc) Active 2019 Medical Center Hydrochlorothiazid Notes: (Same Inactive [place] e as: 2019 Medical Hydrodiuril) Center With food. Docusate Sodium 50 Notes: (Same No Longer [facility] MG / sennosides, as Senokot-S) Active 2018 edical RESIDENTIAL 8.6 MG Oral Equiv. to Center Tablet Cassidy-Colace. Furosemide 20 MG Notes: (Same No Longer [facility] Oral Tablet as: Lasix) Active 2019 Medical May cause GI Center upset. Give with food or milk. Gamunex-C 25 gm + Notes: For No Longer [facility] empty container 1 adults: use Active 2018 [place] dical bag IBW of XX used Center for XX mg/kg per protocol WASTE: F/P - Red; E -Red Lot # ____Mfg: (Gamunex - C) "blood product derivative" rosuvastatin Notes: (Same Inactive [place] As: Crestor) 2019 Medical Center heparin sodium, Notes: porcine Inactive [place] porcine 2500 heparin 2019 Medical UNT/ML Injectable Center Solution Lacri-Lube Notes: (Same No Longer [place] as: Active 2019 Medical Lacri-Lube, Center Puralube, Duratears Naturale, Artificial Tears, and Tears Again ) Pyridostigmine Notes: (Same No Longer [facility] as: Mestinon) Active 2019 Medical Center Saline Flush 0.9% Notes: (Same No Longer [facility] as: BD Active 2019 Medical Posiflush) Center Benadryl Notes: (Same No Longer [facility] as: Benadryl) Active 2019 Medical Center Solu-Medrol Notes: ([place] as:Solu-MEDROL Active 2019 Medical , A-Methapred) Center Zofran Notes: (Same No Longer [facility] as: Zofran) Active 2018 Medical MEDICATION Center WASTE Product Size: 4 mg Product Wasted: ___ mg Immunoglobulin G 36 gm, Route: Inactive [place] IVPB, Drug 2019 Medical form: SOLN, Center Daily, Dosing Weight 91.378, kg, Start date: 09/10/18 16:42:00 CDT, Duration: 5 day, Stop date: 09/15/18 9:00:00 CDT, Indication: Other see comments Insulin regular 60 units) No Longer [facility] WASTE: F/P - Active 2019 Medical Black; E - Center Municipal Trash Bin Stable for 28 days at room temperature Expires in days from Date Glucagon 1 mg, Route: No Longer [facility] IM, Drug form: Active 2018 Medical PDR/INJ, PRN, Center Dosing Weight 91.378, kg, PRN Blood Glucose Results, Start date: 09/10/18 8:17:00 CDT, Duration: 30 day, Stop date: 10/10/18 8:16:00 CDT Dextrose 50% 12.5 gm, 25 [place] Longer [place] Syringe mL, Route: Active 2018 Medical IVP, Drug Center Form: INJ, Dosing Weight 91.378, kg, PRN, PRN Blood Glucose Results, Start date: 09/10/18 8:17:00 CDT, Duration: 30 day, Stop date: 10/10/18 8:16:00 CDT Saline Flush 0.9% Notes: (Same No Longer [place] as: BD Active 2018 Medical Posiflush) [place] Dextrose 5% with 1,000 mL, No Longer [place] 0.9% NaCl IV 1,000 Rate: 75 Active 2018 [facility] [place] mL ml/hr, Infuse [place] over: 13.3 hr, Route: IV, Dosing Weight 91.378 kg, Total Volume: 1,000, Start date: 09/10/18 0:20:00 CDT, Duration: 30 day, Stop date: 10/10/18 0:19:00 CDT, 1.99, m2 Streptococcus Notes: Shake No Longer [place] pneumoniae well prior to Active 2018 Medical serotype 1 use (Same as: [place] capsular antigen Prevnar 13) diphtheria [id number] protein conjugate vaccine / Streptococcus pneumoniae serotype 14 capsular antigen diphtheria [id number] protein conjugate vaccine / Streptococcus pneumoniae serotype 18C capsular antigen d insulin glargine Notes: (Same Inactive H as: Lantus) Do 2019 [facility] not hold [facility] insulin without contacting prescriber WASTE: F/P - Black; E - Municipal Trash Bin "single patient use only" Insulin Glargine 10 unit, On Hold 100 UNT/ML SUB-Q, 2019 [facility] Injectable Bedtime, 0 [facility] Solution Refill(s) Bacitracin 0.5 1 appl, Route: Inactive H UNT/MG Ophthalmic RIGHT EYE, 2019 Mem orial Ointment TID, Drug [facility] form: OINT, Start date: 09/09/18 9:00:00 CDT, Duration: 30 day, Stop date: 10/08/18 17:00:00 CDT D5W 1/2NS 1,000 mL 1,000 mL, Inactive Rate: 75 2018 [facility] ml/hr, Infuse [facility] over: 13.3 hr, Route: IV, Dosing Weight 94.3 kg, Total Volume: 1,000, Start date: 09/09/18 7:53:00 CDT, Duration: 30 day, Stop date: 10/09/18 7:52:00 CDT, 2.02, m2 Acyclovir Notes: No Longer MEDICATION Active 2019 [facility] WASTE [facility] Product Size: 500 mg Product Wasted: _0__ mg 0.5 ML dulaglutide SUB-Q, every On Hold 3 MG/ML Prefilled Thursday, 0 2018 [place] rial Syringe Refill(s) [facility] Insulin Glargine 20 unit, On Hold 100 UNT/ML SUB-Q, 2019 [facility] Injectable Bedtime, # 3 City Solution mL, 3 Refill(s) heparin Notes: porcine No Longer heparin Active 2019 [facility] Dextrose 50% 12.5 gm, 25 No Longer Syringe mL, Route: Active 2018 [facility] IVP, Drug City Form: INJ, Dosing Weight 94.3, kg, PRN, PRN Blood Glucose Results, Start date: 09/08/18 9:49:00 CDT, Duration: 30 day, Stop date: 10/08/18 9:48:00 CDT Glucagon 1 mg, Route: No Longer IM, Drug form: Active 2018 [facility] PDR/INJ, PRN, [facility] Dosing Weight 94.3, kg, PRN Blood Glucose Results, Start date: 09/08/18 9:49:00 CDT, Duration: 30 day, Stop date: 10/08/18 9:48:00 CDT Furosemide 20 MG Notes: (Same No Longer [place] Oral Tablet as: Lasix) Active 2019 Medical May cause GI Center upset. Give with food or milk. Furosemide 20 MG 40 mg, Route: Inactive [place] Oral Tablet PO, Drug form: 2019 Medic al TAB, Daily, Center Dosing Weight 111.6, kg, Start date: 08/19/18 21:00:00 CDT, Duration: 30 day, Stop date: 09/18/18 9:00:00 CDT clopidogrel 75 mg 75 mg = 1 tab, Active [place] oral tablet PO, Daily, # 2019 Medical 90 tab, 3 Center Refill(s), [facility] [id number] rosuvastatin 10 mg 20 mg = 2 tab, Active [place] oral tablet PO, Bedtime, # 2019 Medic al 180 tab, 3 Center Refill(s) ramipril 5 mg oral 10 mg = 2 cap, Active [place] capsule PO, Q24H, # 2019 Medical 180 cap, 3 Center Refill(s) Insulin Glargine 20 unit, Active [place] as 100 UNT/ML SUB-Q, QPM, # 2019 Medical Injectable 15 mL, 3 Center Solution Refill(s) Furosemide 20 MG 20 mg = 1 tab, Active [place] Oral Tablet PO, Every 2019 Medical Other Day, # Center 15 tab, 0 Refill(s) amLODIPine 5 mg 5 mg = 1 tab, Active [place] oral tablet PO, Daily, # 2019 Medical 90 tab, 3 Center Refill(s) metoprolol 25 mg = 1 tab, Active [place] as tartrate 25 mg PO, BID, # 60 2019 Med ical oral tablet tab, 0 Center Refill(s) Furosemide 20 MG Notes: (Same Inactive H [place] Oral Tablet as: Lasix) 2019 Medical May cause GI Center upset. Give with food or milk. Ramipril Notes: (Same Inactive [place] as:Altace) 2019 Medical Center Hydralazine 10 mg, Route: Inactive [place] IV, ONCE, 2019 Medical Dosing Weight Center 111.6, kg, Start date: 08/19/18 9:10:00 CDT, Stop date: 08/19/18 9:10:00 CDT Amlodipine Notes: (Same [place] as: Norvasc) 2019 Medical Center Fentanyl 50 microgram, Inactive [place] Route: IV, [...] 8:49:00 CDT iodixanol 100 mL, Route: Inactive [place] IVP, Drug 2019 Medical Form: SOLN, Center Dosing Weight 111.6, kg, ONCALL, STAT, Start date: 08/18/18 13:07:00 CDT, Duration: 1 doses or times, Dose = 2.2ml/kg, Max dose = 100ml -- "To be infused by Radiology Staff ONLY" Imodium A-D Notes: Same as No Longer [place] Imodium Active 2019 Medical Center Ativan Notes: (Same No Longer [place] as: Ativan) Active 2019 Medical Center Ramipril Notes: (Same No Longer [place] as:Altace) Active 2019 Medical Center Amlodipine Notes: (Same No Longer [place] as: Norvasc) Active 2019 Medical Center heparin Notes: porcine [place] Longer [place] heparin Active 2019 [facility] atorvastatin 40 mg, Route: Inactive [place] PO, Drug form: 2019 Medical TAB, Bedtime, Center Dosing Weight 111.6, kg, Start date: 08/17/18 21:00:00 CDT, Duration: 30 day, Stop date: 09/15/18 21:00:00 CDT Crestor Notes: (Same No Longer [place] As: Crestor) Active 2019 Medical Center insulin glargine Notes: Same No Longer H [place] as: Lantus) Do Active 2019 Medical [facility] Center insulin without contacting prescriber WASTE: F/P - Black; E - Municipal Trash Bin Ramipril Notes: (Same No Longer [place] as:Altace) Active 2019 Medical Center Amlodipine Notes: (Same No Longer [place] as: Norvasc) Active 2019 Medical Center loperamide Notes: Same as Inactive [place] Imodium 2019 [facility] Imodium A-D EZ 2 mg, Route: Inactive [place] Chews CHEW, Dosing 2018 Medical Weight 111.6, Center kg, BID, PRN as needed for loose stool, Start date: 08/17/18 13:34:00 CDT, Duration: 30 day, Stop date: 09/16/18 13:33:00 CDT Plavix Notes: (Same No Longer [place] As: Plavix) Active 2019 [facility] benzonatate Notes: (Same [place] Longer [place] As: Tessalon Active 2018 [facility] [place]) "Do Center Not Crush" Insulin regular 60 units) No Longer [place] WASTE: F/P - Active 2018 [facility] Black; E - Center Municipal Trash Bin Stable for 28 days at room temperature Expires in days from Date 3 ML Insulin 40 unit, No Longer [place] Glargine 100 SUB-Q, Active 2018 [facility] UNT/ML Prefilled Bedtime, # 3 Ce nter Syringe [Lantus] mL, 3 Refill(s) Insulin regular 60 units) Inactive [place] WASTE: F/P - 2018 [facility] Black; E - Center Municipal Trash Bin Stable for 28 days at room temperature Expires in days from Date Dextrose 50% in 12.5 gm, 25 No Longer [place] Water (bolus) IV mL, Route: Active 2018 [facility] roger IVP, Drug Center Form: INJ, Dosing Weight 113.636, kg, PRN, PRN Blood Glucose Results, Start date: 08/17/18 2:18:00 CDT, Duration: 30 day, Stop date: 09/16/18 2:17:00 CDT Glucagon 1 mg, Route: No Longer [place] IM, Drug form: Active 2018 [facility] PDR/INJ, PRN, Center Dosing Weight 113.636, kg, PRN Blood Glucose Results, Start date: 08/17/18 2:18:00 CDT, Duration: 30 day, Stop date: 09/16/18 2:17:00 CDT Bisacodyl Notes: (Same No Longer [place] alexis As: Dulcolax, Active 2018 Medical Bisco-Lax) [place] Labetalol 20 mg, 4 mL, No Longer [place] alexis Route: IVP, Active 2018 Medical Drug form: [place] INJ, Q10Min, Dosing Weight 113.636, kg, PRN Hypertension, Start date: 08/16/18 23:38:00 CDT, Duration: 30 day, Stop date: 09/15/18 23:37:00 CDT iodixanol 60 mL, Route: Inactive [place] IVP, Drug 2018 Medical Form: [facility], [place] Dosing Weight 113.636, kg, ONCALL, STAT, Start date: 08/16/18 20:39:00 CDT, Duration: 1 doses or times, Dose = 2.2ml/kg, Max dose = 100ml -- "To be infused by Radiology Staff ONLY" metoprolol 25 mg 25 mg, 1 tab, PO Active Hernán [facility] oral tablet PO, BID, 60 2010 Medical tab, Center Substitution Allowed, TAB metoprolol 25 mg, 1 tab, PO No Longer [place] Route: PO, Active 2010 Medical Drug form: [place] TAB, BID, Start date: 03/25/11 9:00:00, Duration: 30 day, Stop date: 04/23/11 17:00:00 hydrALAZINE 10 mg, 0.5 mL, IV No Longer Hernán [place] Route: IV, Active 2010 Medical Drug form: [place] INJ, Q4H, PRN Elevated BP, Start date: 03/24/11 18:14:00, Duration: 30 day, Stop date: 04/23/11 18:13:00, Systolic Blood pressure greater than 160 mmHg magnesium sulfate 2 gm, 50 mL, IVPB No Longer Hernán [place] Route: IVPB, Active 2010 Medical Drug form: [place] INJ, ONCE, Total dose = 2 gm, Start date: 03/24/11 17:59:00, Duration: 1 doses or times, Stop date: 03/24/11 17:59:00 NS 1,000 mL 1,000 mL, IV No Longer Hernán [facility] Rate: 100 Active 2010 Medical ml/hr, Infuse [place] over: 10 hr, Route: IV, Total Volume: 1,000, Start date: 03/24/11 17:56:00, Duration: 30 day, Stop date: 04/23/11 17:55:00 Novolin N 10 unit, 0.1 SUB-Q No Longer [place] mL, Route: Active 2010 Medical SUB-Q, Drug Center form: INJ, BID, Start date: 03/24/11 9:00:00, Duration: 30 day, Stop date: 04/22/11 17:00:00 [place] Thyroid 120 mg, 2 tab, PO No Longer Hernán [facility] Route: PO, Active 2010 Medical Drug form: Center TAB, Before Breakfast, Start date: 03/24/11 8:30:00, Duration: 30 day, Stop date: 04/23/11 7:30:00 potassium chloride 40 mEq, 2 tab, PO No Longer Hernán 03/02 [facility] Route: PO, Active 2010 Medical Drug form: [place] ERTAB, ONCE, Start date: 03/23/11 19:12:00, Stop date: 03/23/11 19:12:00 senna 8.6 mg oral 8.6 mg, 1 tab, PO No Longer Hernán 03/23 [facility] tablet Route: PO, Active 2010 Medical Drug Form: Center TAB, Daily, Start date: 03/23/11 9:00:00, Duration: 30 day, Stop date: 04/21/11 9:00:00 diphenhydrAMINE 25 mg, 1 cap, PO No Longer Hernán [facility] Route: PO, Active 2010 Medical Drug form: [place] CAP, Q6H, PRN Itching, Start date: 03/23/11 7:37:00, Duration: 30 day, Stop date: 04/22/11 7:36:00 [place] Thyroid 120 mg, 0.5 PO No Longer Hernán [facility] tab, Route: Active 2010 Medical PO, Drug form: Center TAB, Before Breakfast, Start date: 03/23/11 7:30:00, Duration: 30 day, Stop date: 04/21/11 7:30:00 heparin 5,000 unit, 1 SUB-Q No Longer Hernán [facility] mL, Route: Active 2010 Medical SUB-Q, Drug Center form: INJ, Q12H, Start date: 03/22/11 21:00:00, Duration: 30 day, Stop date: 04/21/11 9:00:00 Crestor 20 mg, 2 tab, PO No Longer Hernán [facility] Route: PO, Active 2010 Medical Drug form: Center TAB, Bedtime, Start date: 03/22/11 21:00:00, Duration: 30 day, Stop date: 04/20/11 21:00:00 Keppra 500 mg oral 500 mg, 1 tab, PO No Longer Hernán 03/02 [facility] tablet Route: PO, Active 2010 Medical Drug form: Center TAB, Q12H, Start date: 03/22/11 21:00:00, Duration: 30 day, Stop date: 04/21/11 9:00:00 Mckenzie 5/325 oral 1 tab, Route: PO No Longer Hernán [facility] tablet PO, Drug Form: Active 2010 Medical TAB, Q4H, PRN Center Pain, Start date: 03/22/11 17:33:00, Duration: 30 day, Stop date: 04/21/11 17:32:00 1/2NS + KCL 500 mL, Rate: IV No Longer Gopath[place] 20mEq/L 1000ml 50 ml/hr, Active 2010 Medical (Premix) 500 mL Infuse over: Mitch ter 10 hr, Route: IV, Total Volume: 500, Start date: 03/22/11 17:00:00, Duration: 30 day, Stop date: 04/21/11 16:59:00 magnesium oxide 400 mg, 1 tab, PO No Longer Hernán [facility] Route: PO, Active 2010 Medical Drug form: Center TAB, BID, Start date: 03/22/11 17:00:00, Duration: 30 day, Stop date: 04/21/11 9:00:00 metoprolol 12.5 mg, 1 ea, PO No Longer [place] Route: PO, Active 2010 Medical Drug form: Center TAB, BID, Start date: 03/22/11 17:00:00, Duration: 30 day, Stop date: 04/21/11 9:00:00 docusate sodium 100 mg, 1 cap, PO No Longer Hernán [place] 100 mg oral Route: PO, Active 2010 Medical capsule Drug form: [place] CAP, BID, Start date: 03/22/11 17:00:00, Duration: 30 day, Stop date: 04/21/11 9:00:00 1/2NS 1,000 mL 1,000 mL, IV No Longer [place] Rate: 50 Active 2010 Medical ml/hr, Infuse Center over: 20 hr, Route: IV, Total Volume: 1,000, Start date: 03/22/11 16:57:00, Duration: 30 day, Stop date: 04/21/11 16:56:00 insulin aspart 3 unit, 0.03 SUB-Q No Longer Hernán [place] mL, Route: Active 2010 Medical SUB-Q, Drug Center form: SOLN, TID-Before Meals, PRN Blood Glucose Results, Start date: 03/22/11 16:28:00, Duration: 30 day, Stop date: 04/21/11 16:27:00 Dextrose 50% 25 gm, 50 mL, IVP No Longer Hernán [facility] Syringe Route: IVP, Active 2010 Medical Drug Form: [place] INJ, PRN, PRN Blood Glucose Results, Start date: 03/22/11 16:28:00, Duration: 30 day, Stop date: 04/21/11 15:27:00 glucagon 1 mg, Route: IM No Longer Hernán [place] IM, Drug form: Active 2010 Medical PDR/INJ, PRN, Center PRN Blood Glucose Results, Priority: STAT, Start date: 03/22/11 16:28:00, Duration: 30 day, Stop date: 04/21/11 15:27:00 calcium carbonate 500 mg, 1 tab, PO No Longer Hernán 03/22 [place] Route: PO, Active 2010 Medical Drug form: [place] CHEWTAB, TID, PRN as needed for indigestion, Start date: 03/22/11 16:19:00, Duration: 30 day, Stop date: 04/21/11 16:18:00 ondansetron 4 mg, 2 mL, IVP No Longer [place] Route: IVP, Active 2010 Medical Drug form: [place] INJ, ONCE, Priority: STAT, Start date: 03/22/11 10:12:00, Stop date: 03/22/11 10:12:00 morphine Sulfate 4 mg, 1 mL, IVP No Longer Dumont [facility] Route: IVP, Active 2010 Medical Drug form: [place] INJ, ONCE, Priority: STAT, Start date: 03/22/11 10:11:00, Stop date: 03/22/11 10:11:00 magnesium oxide 400 mg, 1 tab, [facility] [place] [facility] mg oral tablet PO, BID, 2010 Me dical tab, Center Substitution Allowed Benadryl 25 mg, 1 cap, PO No Longer [place] Route: PO, Active 2010 Medical Drug form: [place] CAP, Q4H, PRN Itching, Start date: 03/15/11 6:21:00, Duration: 30 day, Stop date: 04/14/11 6:20:00 trazodone 50 mg 50 mg, 1 tab, PO No Longer Korimil [facility] oral tablet Route: PO, Active 2010 Medical Drug form: [place] TAB, Bedtime, Start date: 03/14/11 21:00:00, Duration: 30 day, Stop date: 04/12/11 21:00:00 NS 1,000 mL 1,000 mL, IV No Longer Alikhan [facility] Rate: 75 Active 2010 Medical ml/hr, Infuse [place] over: 13.3 hr, Route: IV, Total Volume: 1,000, Start date: 03/14/11 17:02:00, Duration: 30 day, Stop date: 04/13/11 17:01:00 senna 8.6 mg oral 8.6 mg, 1 tab, PO No Longer Korimilli [facility] tablet Route: PO, Active 2010 Medical Drug Form: [place] TAB, Daily, Start date: 03/14/11 9:00:00, Duration: 30 day, Stop date: 04/12/11 9:00:00 metoprolol 12.5 mg, 1 ea, PO No Longer [place] [facility] Route: PO, Active 2010 Medical Drug form: [place] TAB, BID, Start date: 03/14/11 9:00:00, Duration: 30 day, Stop date: 04/12/11 17:00:00 Crestor 20 mg, 2 tab, PO No Longer [place] 03/14/ [place] Route: PO, Active 2010 Medical Drug form: [place] TAB, Daily, Start date: 03/14/11 9:00:00, Duration: 30 day, Stop date: 04/12/11 9:00:00 Keppra 500 mg oral 500 mg, 1 tab, PO No Longer Ash / [facility] [place] tablet Route: PO, Active 2010 Medical Drug form: [place] TAB, Q12H, Start date: 03/14/11 9:00:00, Duration: 30 day, Stop date: 04/12/11 21:00:00 Novolin N 10 unit, 0.1 SUB-Q No Longer [place] 03/14/ [place] mL, Route: Active 2010 Medical SUB-Q, Drug Center form: INJ, BID, Start date: 03/14/11 9:00:00, Duration: 30 day, Stop date: 04/12/11 17:00:00 docusate sodium 100 mg, 1 cap, PO No Longer [place] 03/14/ [place] 100 mg oral Route: PO, Active 2010 Medical capsule Drug form: [place] CAP, BID, Start date: 03/14/11 9:00:00, Duration: 30 day, Stop date: 04/12/11 17:00:00 calcium carbonate 500 mg, 1 tab, PO No Longer [place] 10 4/ [facility] [place] Route: PO, Active 2010 Medical Drug form: [place] CHEWTAB, TID, Start date: 03/14/11 9:00:00, Duration: 30 day, Stop date: 04/12/11 17:00:00 heparin 5,000 unit, 1 SUB-Q No Longer [place] 03/14/ [place] mL, Route: Active 2010 Medical SUB-Q, Drug Center form: INJ, Q8H, Start date: 03/14/11 8:00:00, Duration: 30 day, Stop date: 04/13/11 0:00:00 ciprofloxacin 750 mg, 3 tab, PO No Longer [place] 03/14/ [facility] [place] Route: PO, Active 2010 Medical Drug form: [place] TAB, [id number], Start date: 03/14/11 7:00:00, Duration: 30 day, Stop date: 04/12/11 19:00:00 cefepime 2 gm, Route: IV No Longer [place] [facility]: Active 2010 Medical INJ, [id number], Center Start date: 03/14/11 7:00:00, Duration: 30 day, Stop date: 04/12/11 23:00:00 [place] Thyroid 120 mg, 2 tab, PO No Longer [place] [facility] Route: PO, Active 2010 Medical Drug form: [place] TAB, [id number], Start date: 03/14/11 6:45:00, Duration: 30 day, Stop date: 04/13/11 6:30:00 glucagon 1 mg, Route: IM No Long[facility], Drug form: Active 2010 Medical PDR/INJ, PRN, Center PRN Blood Glucose Results, Priority: STAT, Start date: 03/14/11 6:06:00, Duration: 30 day, Stop date: 04/13/11 5:05:00 Dextrose 50% 25 gm, 50 mL, IVP No Longer [place] [facility] Syringe Route: IVP, Active 2010 Medical Drug Form: Center INJ, PRN, PRN Blood Glucose Results, Start date: 03/14/11 6:06:00, Duration: 30 day, Stop date: 04/13/11 5:05:00 insulin aspart 4 unit, 0.04 SUB-Q No Longer [place] H [place] mL, Route: Active 2010 Medical SUB-Q, Drug Center form: SOLN, TID-Before Meals, PRN Blood Glucose Results, Start date: 03/14/11 6:06:00, Duration: 30 day, Stop date: 04/13/11 6:05:00 Mckenzie 5/325 oral 1 tab, Route: PO No Longer Ash [facility] tablet PO, Drug Form: Active 2010 Medical TAB, Q4H, PRN Center as needed for pain, Start date: 03/14/11 6:02:00, Duration: 30 day, Stop date: 04/13/11 6:01:00 magnesium sulfate 2 gm, 50 mL, IVPB No Longer Ash [place] Route: IVPB, Active 2010 Medical Drug form: Center INJ, ONCE, Total dose = 2 gm, Start date: 03/14/11 6:01:00, Duration: 1 doses or times, Stop date: 03/14/11 6:01:00 Sodium Chloride 1,000 mL, IV No Longer [place] 0.9% (Bolus) IV Rate: 1,000 Active 2010 Medi roger 1,000 mL ml/hr, Infuse Center over: 1 hr, Route: IV, Total Volume: 1,000, Bolus Dose, Priority: STAT, Start date: 03/14/11 4:12:00, Duration: 1 doses or times, Stop date: 03/14/11 5:11:00 Maxipime 2 gm, Route: IVPB No Longer Burden [place] IVPB, Drug Active 2010 Medical form: INJ, Center ONCE, Start date: 03/13/11 23:52:00, Stop date: 03/13/11 23:52:00 Cipro 750 mg, 3 tab, PO No Longer Burden She[place]on alexis Route: PO, Active 2010 Medical Drug form: Center TAB, ONCE, Start date: 03/13/11 23:51:00, Stop date: 03/13/11 23:51:00 Sodium Chloride 1,000 mL, IV No Longer [place] 0.9% (Bolus) IV Rate: 1,000 Active 2010 Medi roger 1,000 mL ml/hr, Infuse Center over: 1 hr, Route: IV, Total Volume: 1,000, Bolus Dose, Priority: STAT, Start date: 03/13/11 23:20:00, Duration: 1 doses or times, Stop date: 03/14/11 0:19:00 morphine Sulfate 4 mg, 1 mL, IVP No Longer Daftary [place]ie Route: IVP, Active 2010 Medical Drug form: Center INJ, ONCE, Priority: STAT, Start date: 03/13/11 22:47:00, Stop date: 03/13/11 22:47:00 Lasix Substitution No Longer [place] Allowed Active 2010 Medical Center metFORmin Substitution No Longer [place] Allowed Active 2010 Medical Center metoprolol 12.5 mg, 1 ea, PO No Longer [place]o [place] Route: PO, Active 2010 Medical Drug form: Center TAB, BID, Start date: 03/06/11 20:00:00, Duration: 30 day, Stop date: 04/05/11 8:00:00 metoprolol 25 mg 12.5 mg, 0.5 PO Active Rizvi [place] oral tablet ea, PO, BID, 2010 Medical 60 tab, Center Substitution Allowed, TAB trazodone 50 mg 50 mg, 1 tab, PO Active [facility] [place] oral tablet PO, Bedtime, 2010 Medical 40 tab, Center Substitution Allowed, TAB Mckenzie 5/325 oral 1 tab, PO, PO Active [place] tablet Q4H, PRN, 40 2010 Medical tab, Pain, Center Substitution Allowed, Maintenance, TAB Novolin N 100 10 unit, SUB-Q Active [place] [facility] units/mL SUB-Q, BID, 10 2010 Medical subcutaneous ml, Center injection Substitution Allowed, SUSP [place] Thyroid 60 120 mg, 2 tab, PO Active [facility] [place] mg oral tablet PO, Before 2010 Medica l Breakfast, 60 [place] tab, Substitution Allowed, TAB Keppra 500 mg oral 500 mg, 1 tab, PO Active [facility] [place] tablet PO, Q12H, 60 2010 Medical tab, Center Substitution Allowed, TAB Crestor 20 mg oral 20 mg, 1 tab, PO Active [facility] [place] tablet PO, Daily, 30 2010 Medical tab, Center Substitution Allowed, TAB senna 8.6 mg oral 8.6 mg, 1 tab, PO Active Rizvi 03/06[facility] [place] tablet PO, Daily, 30 2010 Medical tab, Center Substitution Allowed, Maintenance, TAB docusate sodium 100 mg, 1 cap, PO Active Rizvi H [place] 100 mg oral PO, BID, 30 2010 Medical capsule cap, Center Substitution Allowed, CAP ciprofloxacin 250 750 mg, 3 tab, PO Active Rizvi 03/06[facility] [place] mg oral tablet PO, Q12H, 40 2010 Medi roger doses or Center times, Substitution Allowed, TAB Maxipime 2 g 2 gm, IV, Q8H, IV Active [facility]vi 03/06[facility] [facility] [place] injection 60 doses or 2010 Medical times, Center Substitution Allowed calcium carbonate 500 mg, 1 tab, PO Active Rizvi [place] 500 mg oral PO, TID, PRN, 2010 Medica l tablet, chewable 30 tab, as Cent er needed for indigestion, Substitution Allowed, CHEWTAB Lasix 10 mg, 0.5 PO No Longer Aaron [facility] tab, Route: Active 2010 Medical PO, Drug form: Center TAB, Daily, Start date: 03/06/11 8:00:00, Duration: 30 day, Stop date: 04/04/11 8:00:00 Norvasc 5 mg, Route: PO No Longer [place] PO, Daily, Active 2010 Medical Start date: [place] 03/02/11 8:00:00, Duration: 30 day, Stop date: 03/31/11 8:00:00 trazodone 50 mg 50 mg, 1 tab, PO No Longer Zeider [facility] oral tablet Route: PO, Active 2010 Medical Drug form: Center TAB, Bedtime, Start date: 02/27/11 21:00:00, Duration: 30 day, Stop date: 03/28/11 21:00:00 calcium carbonate 500 mg, 1 tab, PO No Longer Zeider 02/27 [facility] Route: PO, Active 2010 Medical Drug form: Center TAB, TID, Start date: 02/27/11 8:00:00, Duration: 7 day, Stop date: 03/05/11 17:00:00 senna 8.6 mg, 1 tab, PO No Longer Zeider [place] Route: PO, Active 2010 Medical Drug Form: Center TAB, Daily, Start date: 02/27/11 8:00:00, Duration: 30 day, Stop date: 03/28/11 8:00:00 Lasix 40 mg oral 20 mg, 0.5 PO No Longer Rizvi [facility] tablet tab, Route: Active 2010 Medical PO, Drug form: Center TAB, Daily, Start date: 02/27/11 8:00:00, Stop date: 03/28/11 8:00:00 [place] Thyroid 120 mg, 2 tab, PO No Longer Zeider [facility] Route: PO, Active 2010 Medical Drug form: Center TAB, Before Breakfast, Start date: 02/27/11 6:30:00, Duration: 30 day, Stop date: 03/28/11 6:30:00 Insulin regular 5 unit, 0.05 SUB-Q No Longer Crowe [facility] mL, Route: Active 2010 Medical SUB-Q, Drug Center form: SOLN, TID-Before Meals, Start date: 02/27/11 6:30:00, Stop date: 03/28/11 16:30:00 heparin 5000 5,000 unit, 1 SUB-Q No Longer Zeider [facility] units/mL mL, Route: Active 2010 Medical injectable SUB-Q, Drug Center solution form: INJ, Q8H, Start date: 02/27/11 0:00:00, Duration: 30 day, Stop date: 03/28/11 16:00:00 hydrALAZINE 25 mg 25 mg, 1 tab, PO No Longer Crowe [place] oral tablet Route: PO, Active 2010 Medical Drug form: Center TAB, Q8H, Start date: 02/27/11 0:00:00, Duration: 30 day, Stop date: 03/28/11 16:00:00 ciprofloxacin 750 mg, 3 tab, PO No Longer Zeider [facility] Route: PO, Active 2010 Medical Drug form: Center TAB, Q12H, Priority: Routine, Start date: 02/26/11 23:00:00, Duration: 30 day, Stop date: 03/28/11 11:00:00 Crestor 20 mg, 2 tab, PO No Longer Zeider [facility] Route: PO, Active 2010 Medical Drug form: Center TAB, Daily, Start date: 02/26/11 21:00:00, Duration: 30 day, Stop date: 03/27/11 21:00:00 levetiracetam 500 mg, 1 tab, PO No Longer Zeider [facility] Route: PO, Active 2010 Medical Drug form: Center TAB, Q12H, Start date: 02/26/11 21:00:00, Duration: 30 day, Stop date: 03/28/11 9:00:00 magnesium oxide 400 mg, 1 tab, PO No Longer Zeider [facility] Route: PO, Active 2010 Medical Drug form: Center TAB, BID, Start date: 02/26/11 20:00:00, Duration: 5 day, Stop date: 03/03/11 8:00:00 insulin 10 unit, 0.1 SUB-Q No Longer Zeider [facility] isophane-NPH mL, Route: Active 2010 Medical SUB-Q, Drug Center form: INJ, BID, Start date: 02/26/11 20:00:00, Duration: 30 day, Stop date: 03/28/11 8:00:00 docusate sodium 100 mg, 1 cap, PO No Longer Zeider [facility] 100 mg oral Route: PO, Active 2010 Medical capsule Drug form: [place] CAP, BID, Start date: 02/26/11 20:00:00, Duration: 30 day, Stop date: 03/28/11 8:00:00 Prinivil 20 mg, 1 tab, PO [place] Longer [place] Route: PO, Active 2010 Medical Drug form: Center TAB, BID, Start date: 02/26/11 20:00:00, Stop date: 03/28/11 8:00:00 cefepime 2 gm, Route: IVPB No Longer Zeider [facility] IVPB, Drug Active 2010 Medical form: INJ, [place] [id number], Start date: 02/26/11 18:00:00, Duration: 30 day, Stop date: 03/28/11 10:00:00 ondansetron 4 mg, 2 mL, IVP No Longer Zeider [facility] as Route: IVP, Active 2010 Medical Drug form: [place] INJ, ONCE, PRN Nausea & Vomiting, Start date: 02/26/11 17:39:00 Saline Flush 0.9% 5 ml, Route: IVP No Longer Zeider [facility] IVP, Drug Active 2010 Medical Form: INJ, Center PRN, PRN Line Flush, Start date: 02/26/11 17:39:00, Duration: 30 day, Stop date: 03/28/11 17:38:00 calcium carbonate 500 mg, 1 tab, CHEW No Longer Zeider 02/26 [facility] Route: CHEW, Active 2010 Medical Drug form: [place] CHEWTAB, TID, PRN Indigestion, Start date: 02/26/11 17:39:00, Duration: 30 day, Stop date: 03/28/11 17:38:00 Mckenzie 5/325 oral 1 tab, Route: PO No Longer Zeider [place] tablet PO, Drug Form: Active 2010 Medical TAB, Q4H, PRN Center Pain, Start date: 02/26/11 17:39:00, Duration: 30 day, Stop date: 03/28/11 17:38:00 acetaminophen 650 mg, 20.3 PO No Longer Zeider [facility] mL, Route: PO, Active 2010 Medical Drug form: Center LIQ, Q4H, PRN Fever, Start date: 02/26/11 17:39:00, Duration: 30 day, Stop date: 03/28/11 17:38:00 Mckenzie 7.5/325 oral 1 tab, Route: PO No Longer Zeider 02/26 [place] tablet PO, Drug Form: Active 2010 Medical TAB, Q4H, PRN Center Pain, Start date: 02/26/11 17:39:00, Duration: 30 day, Stop date: 03/28/11 17:38:00 Insulin regular 2 unit, 0.02 SUB-Q No Longer Zeider 02/26/ [facility] [place] mL, Route: Active 2010 Medical SUB-Q, Drug Center form: SOLN, TID-Before Meals, PRN Blood Glucose Results, Start date: 02/26/11 17:39:00, Duration: 30 day, Stop date: 03/28/11 17:38:00 [place] Thyroid 60 120 mg, 2 tab, PO Active [facility] [place] mg oral tablet PO, Before 2010 Medica l Breakfast, Center tab, Substitution Allowed, TAB senna [...] Active [facility] [place] oral tablet PO, BID, 2010 Medical tab, Center Substitution Allowed, TAB levetiracetam 500 500 mg, 1 tab, PO Active [facility] [place] mg oral tablet PO, Q12H, 30 2010 [facility] roger tab, Center Substitution Allowed, TAB hydrALAZINE 25 mg 25 mg, 1 tab, PO Active [place] oral tablet PO, Q8H, 30 2010 Medical tab, Center Substitution Allowed, TAB heparin 5000 5000 units, SUB-Q Active [place] units/mL SUB-Q, Q8H, 30 2010 Medical injectable doses or Center solution times, Substitution Allowed, SOLN Lasix 40 mg oral 40 mg, 1 tab, PO Active [place] [facility] [place] tablet PO, Daily, 2010 Medical tab, Center Substitution Allowed, TAB docusate sodium 100 mg, 1 cap, PO Active [place] [facility] [place] 100 mg oral PO, BID, 2010 Medical capsule cap, Center Substitution Allowed, CAP ciprofloxacin 250 750 mg, 3 tab, PO Active [place] mg oral tablet PO, Q12H, 30 2010 [facility] roger doses or Center times, Substitution Allowed, TAB Maxipime 2 g 2 gm, IV, Q8H, IV Active [place] injection 1 doses or 2010 Medical times, Center Substitution Allowed calcium carbonate 500 mg, 1 tab, PO Active [place] 500 mg oral PO, TID, 2010 Medical tablet, chewable tab, Center Substitution Allowed, CHEWTAB Fleet Enema 133 ml, Route: [place] No Longer Joel [facility] MI, Drug Form: Active 2010 Medical JEANNIE, ONCE, Center Start date: 02/24/11 14:38:00, Stop date: 02/24/11 14:38:00 bisacodyl 10 mg, 1 supp, [place] Longer [place] Route: [place], Active 2010 Medical Drug form: Center SUPP, ONCE, Start date: 02/24/11 14:38:00, Stop date: 02/24/11 14:38:00 magnesium citrate 300 ml, Route: PO No Longer Aicha 02/24 [place] PO, Drug Form: Active 2010 Medical LIQ, ONCE, Center Start date: 02/24/11 13:03:00, Stop date: 02/24/11 13:03:00 calcium carbonate 500 mg, 1 tab, PO No Longer Aaron 02/24 [facility] Route: PO, Active 2010 Medical Drug form: Center TAB, TID, Start date: 02/24/11 13:00:00, Duration: 7 day, Stop date: 03/03/11 9:00:00 lisinopril 10 mg, 1 tab, PO No Longer [place] Route: PO, Active 2010 Medical Drug form: Center TAB, ONCE, Priority: NOW, Start date: 02/24/11 11:02:00, Stop date: 02/24/11 11:02:00 lisinopril 10 mg, Route: PO No Longer [place] PO, ONCE, Active 2010 Medical Start date: Center 02/24/11 11:01:00, Stop date: 02/24/11 11:01:00 Insulin regular 3 unit, 0.03 SUB-Q No Longer Aaron [facility] mL, Route: Active 2010 Medical SUB-Q, Drug Center form: SOLN, TID-Before Meals, Start date: 02/23/11 16:30:00, Duration: 30 day, Stop date: 03/25/11 11:30:00 ciprofloxacin 750 mg, 3 tab, PO No Longer Aaron [facility] Route: PO, Active 2010 Medical Drug form: Center TAB, Q12H, Priority: Routine, Start date: 02/23/11 13:00:00, Duration: 30 day, Stop date: 03/25/11 11:00:00 insulin 10 unit, 0.1 SUB-Q No Longer Aaron [facility] isophane-NPH mL, Route: Active 2010 Medical SUB-Q, Drug Center form: INJ, BID, Start date: 02/21/11 17:00:00, Stop date: 03/23/11 9:00:00 magnesium oxide 400 mg, 1 tab, PO No Longer Aaron [facility] Route: PO, Active 2010 Medical Drug form: Center TAB, BID, Start date: 02/21/11 17:00:00, Duration: 5 day, Stop date: 02/26/11 9:00:00 calcium carbonate 500 mg, 1 tab, CHEW No Longer Aaron 02/21 [facility] Route: CHEW, Active 2010 Medical Drug form: [place] CHEWTAB, TID, PRN Indigestion, Start date: 02/21/11 14:26:00, Duration: 30 day, Stop date: 03/23/11 14:25:00 cefepime 2 gm, Route: IVPB No Longer Christianson [facility] IVPB, Drug Active 2010 Medical form: INJ, Center [id number], Start date: 02/20/11 18:00:00, Stop date: 03/22/11 10:00:00 Lasix 40 mg oral 40 mg, 1 tab, PO No Longer Aaron [facility] tablet Route: PO, Active 2010 Medical Drug form: Center TAB, Daily, Start date: 02/20/11 17:00:00, Stop date: 03/22/11 9:00:00 heparin 5000 5,000 unit, 1 SUB-Q No Longer Salazar [facility] units/mL mL, Route: Active 2010 Medical injectable SUB-Q, Drug Center solution form: INJ, Q8H, Start date: 02/20/11 16:00:00, Duration: 30 day, Stop date: 03/22/11 8:00:00 Mckenzie 7.5/325 oral 1 tab, Route: PO No Longer Marie 02/20 [facility] tablet PO, Drug Form: Active 2010 Medical TAB, Q4H, PRN Center Pain, Start date: 02/20/11 11:07:00, Duration: 30 day, Stop date: 03/22/11 11:06:00 Crestor 20 mg, 2 tab, PO No Longer Christopher [place] Route: PO, Active 2010 Medical Drug form: Center TAB, Daily, Start date: 02/20/11 9:00:00, Duration: 30 day, Stop date: 03/21/11 9:00:00 senna 8.6 mg, 1 tab, PO No Longer Christopher [place] s Route: PO, Active 2010 Medical Drug Form: Center TAB, Daily, Start date: 02/20/11 9:00:00, Duration: 30 day, Stop date: 03/21/11 9:00:00 [place] Thyroid 120 mg, 2 tab, PO No Longer Christopher [place] Route: PO, Active 2010 Medical Drug form: [place] TAB, Before Breakfast, Start date: 02/20/11 7:30:00, Duration: 30 day, Stop date: 03/21/11 7:30:00 vancomycin 1 gm, Route: IVPB No Longer Christianson [place] as IVPB, Drug Active 2010 Medical form: INJ, [place] [id number], Priority: NOW, Start date: 02/20/11 6:44:00, Duration: 30 day, Stop date: 03/21/11 22:44:00 magnesium sulfate 2 gm, 50 mL, IVPB No Longer Day [place] Route: IVPB, Active 2010 Medical Drug form: [place] INJ, Q2H, Start date: 02/20/11 5:00:00, Duration: 2 doses or times, Stop date: 02/20/11 7:00:00 potassium chloride 20 mEq, 100 IVPB No Longer Day [place] mL, Route: Active 2010 Medical IVPB, Q2H, Center Start date: 02/20/11 4:00:00, Duration: 2 doses or times, Stop date: 02/20/11 6:00:00 magnesium sulfate 4 gm, 100 mL, IVPB No Longer Day [place] Route: IVPB, Active 2010 Medical Drug form: [place] INJ, ONCE, Start date: 02/20/11 4:00:00, Stop date: 02/20/11 4:00:00 labetalol 5 mg, 1 mL, IV No Longer Kasi [place] Route: IV, Active 2010 Medical Drug form: [place] INJ, Q10Min, PRN Hypertension, Start date: 02/20/11 1:56:00, Duration: 30 day, Stop date: 03/22/11 1:55:00 NS 500 mL 500 mL, Rate: IV No Longer Kasi [place] 1,000 ml/hr, Active 2010 Medical Infuse over: [place] 0.5 hr, Route: IV, Total Volume: 500, Start date: 02/19/11 22:07:00, Duration: 1 doses or times, Stop date: 02/19/11 22:36:00, Bolus DoseBolus Dose calcium chloride 1,000 mg, 10 IV No Longer Kasi 02/20[facility] mL, Route: IV, Active 2010 Medical Drug form: [place] INJ, ONCE, Start date: 02/19/11 21:18:00, Stop date: 02/19/11 21:18:00 Tylenol 650 mg, 2 tab, PO No Longer [facility]: PO, Active 2010 Medical Drug form: [place] TAB, Q4H, PRN Fever, Start date: 02/19/11 21:13:00, Duration: 30 day, Stop date: 03/21/11 21:12:00 levetiracetam 500 mg, 1 tab, PO No Longer Christopher 02/20[facility] [place] Route: PO, Active 2010 Medical Drug form: [place] TAB, Q12H, Start date: 02/19/11 21:00:00, Duration: 30 day, Stop date: 03/21/11 9:00:00 acetaminophen 650 mg, 20.3 PO No Longer Kasi [facility] mL, Route: PO, Active 2010 Medical Drug form: [place] LIQ, Q4H, PRN Fever, Start date: 02/19/11 20:04:00, Duration: 30 day, Stop date: 03/21/11 20:03:00 Prinivil 10 mg, 1 tab, PO No Longer Aaron [facility] s Route: PO, Active 2010 Medical Drug form: [place] TAB, BID, Start date: 02/19/11 17:00:00, Duration: 30 day, Stop date: 03/20/11 17:00:00 hydrALAZINE 25 mg 25 mg, 1 tab, PO No Longer Aaron [facility] oral tablet Route: PO, Active 2010 Medical Drug form: [place] TAB, Q8H, Start date: 02/19/11 17:00:00, Stop date: 03/21/11 8:00:00 docusate sodium 100 mg, 1 cap, PO No Longer Christopher 02/19[facility] [place] 100 mg oral Route: PO, Active 2010 Medical capsule Drug form: [place] CAP, BID, Start date: 02/19/11 17:00:00, Duration: 30 day, Stop date: 03/21/11 9:00:00 Mckenzie 5/325 oral 1 tab, Route: PO No Longer Christopher [place] tablet PO, Drug Form: Active 2010 Medical TAB, Q4H, PRN Center Pain, Start date: 02/19/11 16:14:00, Duration: 30 day, Stop date: 03/21/11 16:13:00 ciprofloxacin 400 mg, 200 IVPB No Longer [place] mL, Route: Active 2010 Medical IVPB, Drug Center form: INJ, [id number], Priority: NOW, Start date: 02/19/11 16:10:00, Duration: 30 day, Stop date: 03/21/11 4:10:00 vancomycin 2 gm, Route: IVPB No Longer Rizvi [place]man as IVPB, ONCE, Active 2010 Medical Priority: Center STAT, Start date: 02/19/11 16:02:00, Stop date: 02/19/11 16:02:00 Insulin regular 100 mL, Rate: IVPB No Longer [place] 100 unit + Sodium Start at 0.05 Active 2010 Medical Chloride 0.9% units/kg/hour- Mitch ter (titrate) 100 mL , Route: IVPB, Total Volume: 100, Duration: 30 day, Stop date: 03/21/11 15:56:00, Replace Every: 24 hr Sodium Chloride 1,000 mL, IV No Longer [place] 0.9% IV 1,000 mL Rate: 75 Active 2010 Medica l ml/hr, Infuse Center over: 13.3 hr, Route: IV, Total Volume: 1,000, Start date: 02/19/11 15:56:00, Stop date: 03/21/11 15:55:00 insulin regular 7 unit, 0.07 SUB-Q No Longer Christopher [facility] human recombinant mL, Route: Active 2010 Med ical 100 units/mL SUB-Q, Drug Center injectable form: SOLN, solution PRN, PRN Abnormal Lab Result, Start date: 02/19/11 15:51:00, Duration: 30 day, Stop date: 03/21/11 15:50:00 Dextrose 50% 6.25 gm, 12.5 IVP No Longer Christopher [place]ie Syringe mL, Route: Active 2010 Medical IVP, Drug Center Form: INJ, PRN, PRN Abnormal Lab Result, Start date: 02/19/11 15:51:00, Duration: 30 day, Stop date: 03/21/11 15:50:00 Saline Flush 0.9% 5 ml, Route: IVP No Longer White 02/19[facility] IVP, Drug Active 2010 Medical Form: INJ, Center PRN, PRN Line Flush, Start date: 02/19/11 15:51:00, Duration: 30 day, Stop date: 03/21/11 15:50:00 morphine Sulfate 2 mg, 1 mL, IVP No Longer White 02/19[facility] Route: IVP, Active 2010 Medical Drug form: Center INJ, Q1H, PRN Pain Score 7-10, Start date: 02/19/11 15:51:00, Duration: 30 day, Stop date: 03/21/11 15:50:00 flumazenil 0.2 mg, 2 mL, IVP No Longer [place] Route: IVP, Active 2010 Medical Drug form: Center INJ, PRN, PRN Other -See Comment, Initial dose, Start date: 02/19/11 14:18:00, Duration: 30 day, Stop date: 03/21/11 14:17:00 naloxone 0.04 mg, 0.1 IVP No Longer [place] 02/19[facility] mL, Route: Active 2010 Medical IVP, Drug Center form: INJ, Q2MIN, PRN Narcotic Reversal, Start date: 02/19/11 14:18:00, Duration: 8 doses or times, Stop date: 02/20/11 14:18:00 hydromorphone 0.3 mg, 0.15 IVP No Longer Salazar 02/19[facility] mL, Route: Active 2010 Medical IVP, Drug Center form: INJ, Q5Min, PRN Pain, Start date: 02/19/11 14:18:00, Duration: 5 doses or times, Stop date: Limited # of times ondansetron 4 mg, 2 mL, IVP No Longer [place] 02/19[facility] [place] Route: IVP, Active 2010 Medical Drug form: Center INJ, ONCE, PRN Nausea & Vomiting, Start date: 02/19/11 14:18:00 labetalol 5 mg, 1 mL, IVP No Longer [place] [facility] Route: IVP, Active 2010 Medical Drug form: Center INJ, Q5Min, PRN Elevated BP, Start date: 02/19/11 14:18:00, Duration: 5 doses or times, Stop date: 02/20/11 0:00:00 vancomycin 1 gm, Route: IVPB No Longer Rizvi [place]man as IVPB, Drug Active 2010 Medical form: INJ, Center [id number], Start date: 02/19/11 14:00:00, Duration: 30 day, Stop date: 03/21/11 2:00:00 ondansetron 2 4 mg, 2 mL, IVP Active [facility] [place] as mg/mL injectable IVP, Q8H, PRN, 2010 Medical solution 30 mL, Nausea Center & Vomiting, Substitution Allowed, SOLN Milk of Magnesia 1.2 gm, 5 mL, PO Active [facility] [place] 24% oral PO, Daily, 2010 Medical concentrate PRN, 150 mL, Center Constipation, Substitution Allowed, Maintenance, CONC Prinivil 10 mg 10 mg, 1 tab, PO Active [facility] [place] oral tablet PO, QPM, 30 2010 Medical tab, Center Substitution Allowed, TAB Keppra 500 mg oral 500 mg, 1 tab, PO Active [facility] [place] tablet PO, Q12H, 60 2010 Medical tab, Center Substitution Allowed, TAB Humulin N Pen 100 10 unit, SUB-Q Active [facility] [place] units/mL SUB-Q, BID, 3 2010 Medical subcutaneous ml, Center injection Substitution Allowed, SUSP Humulin N Pen 100 10 unit, SUB-Q Active [facility] [place] units/mL SUB-Q, BID, 3 2010 Medical subcutaneous ml, Center injection Substitution Allowed, SUSP hydrALAZINE 25 mg 25 mg, 1 tab, PO Active [facility] [place] oral tablet PO, BID, 60 2010 Medical tab, Center Substitution Allowed, TAB bisacodyl 10 mg 10 mg, 1 supp, MI Active [facility] [place] rectal suppository MI, Bedtime, 2010 Medical PRN, 30 supp, Center Constipation, Substitution Allowed, SUPP Mckenzie 5/325 oral 1 tab, PO, PO Active [facility] [place] tablet Q4H, PRN, 2010 Medical tab, as needed Center for pain, Substitution Allowed, Maintenance, TAB [place] Thyroid 120 120 mg, 1 tab, PO Active Zeider [place] mg oral tablet PO, Daily, 2010 Med ical tab, Center Substitution Allowed, TAB Crestor 20 mg oral 20 mg, 1 tab, PO Active Zeider [place] tablet PO, Daily, 2010 Medical tab, Center Substitution Allowed, TAB metFORmin 500 mg 500 mg, 1 tab, PO Active Zeider [place] oral tablet PO, Q8H, 2010 Medical tab, Center Substitution Allowed, TAB normal saline 0.9% 1,000 mL, IV No Longer [facility] [facility] [place] IV 1,000 mL Rate: 100 Active 2010 Medical ml/hr, Infuse Center over: 10 hr, Route: IV, Total Volume: 1,000, Start date: 02/18/11 11:29:00, Duration: 30 day, Stop date: 03/20/11 11:28:00 potassium 25 mEq, No Longer [place] bicarbonate 25 mEq Substitution Active 2010 Medical oral tablet, Allowed Center effervescent potassium chloride 40 mEq, 30 mL, PO No Longer Alik[place] 01/30 [place] Route: PO, Active 2010 Medical Drug form: [place] LIQ, Daily, Start date: 02/12/11 11:00:00, Duration: 30 day, Stop date: 03/14/11 8:00:00 Kayexalate 15 gm, 60 mL, PO No Longer [place] Route: PO, Active 2010 Medical Drug form: [place] SUSP, ONCE, Start date: 02/11/11 21:17:00, Stop date: 02/11/11 21:17:00 Kayexalate 30 gm, 120 mL, PO No Longer [place] Route: PO, Active 2010 Medical Drug form: [place] SUSP, ONCE, Start date: 02/11/11 17:22:00, Stop date: 02/11/11 17:22:00 NS (Bolus) IV 1,000 mL, IV No Longer Joel [place]man as 1,000 mL Rate: 1,000 Active 2010 Medical ml/hr, Infuse Center over: 1 hr, Route: IV, Total Volume: 1,000, Priority: STAT, Start date: 02/11/11 8:37:00, Duration: 1 doses or times, Stop date: 02/11/11 9:36:00, Bolus DoseBolus Dose dexamethasone 1 mg, 1 tab, PO No Longer Zeider [facility] Route: PO, Active 2010 Medical Drug form: [place] TAB, Daily, Start date: 02/11/11 8:00:00, Duration: 2 day, Stop date: 02/12/11 8:00:00 Fleet Enema 133 ml, Route: [place] No Longer Joel [facility] [place], Drug Form: Active 2010 Medical JEANNIE, ONCE, [place] Start date: 02/10/11 14:15:00, Stop date: 02/10/11 14:15:00 bisacodyl 10 mg, 1 supp, [place] No Longer [place] Route: [place], Active 2010 Medical Drug form: [place] SUPP, ONCE, Start date: 02/10/11 14:15:00, Stop date: 02/10/11 14:15:00 dexamethasone 1 mg, 1 tab, PO No Longer Zeider [facility] Route: PO, Active 2010 Medical Drug form: [place] TAB, BID, Start date: 02/09/11 8:00:00, Duration: 2 day, Stop date: 02/10/11 20:00:00 Xylocaine Jelly 2% 1 appl, Route: TOP No Longer Allam 01/30[facility] topical gel with TOP, Q6H, Drug Active 2010 Medical applicator form: GEL PRN [place] Pain, Start date: 02/08/11 16:04:00, Duration: 30 day, Stop date: 03/10/11 16:03:00 dexamethasone 1 mg, 1 tab, PO No Longer [place] [facility] Route: PO, Active 2010 Medical Drug form: [place] TAB, TID, Start date: 02/07/11 8:00:00, Duration: 2 day, Stop date: 02/08/11 17:00:00 Prinivil 10 mg, 1 tab, PO No Longer Zeider [place] Route: PO, Active 2010 Medical Drug form: Center TAB, QPM, Start date: 02/06/11 17:00:00, Duration: 30 day, Stop date: 03/07/11 17:00:00 dexamethasone 2 mg, 1 tab, PO No Longer [place] [facility] Route: PO, Active 2010 Medical Drug form: Center TAB, TID, Start date: 02/05/11 8:00:00, Duration: 2 day, Stop date: 02/06/11 17:00:00 lisinopril 10 mg, 1 tab, PO No Longer [place] Route: PO, Active 2010 Medical Drug form: Center TAB, QPM, Start date: 02/04/11 8:00:00, Duration: 30 day, Stop date: 03/05/11 17:00:00 insulin 8 unit, 0.08 SUB-Q No Longer Alikhan [facility] isophane-NPH mL, Route: Active 2010 Medical SUB-Q, Drug Center form: INJ, Before Breakfast, Start date: 02/04/11 6:30:00, Stop date: 03/05/11 6:30:00 insulin 8 unit, 0.08 SUB-Q No Longer Alikhan [facility] isophane-NPH mL, Route: Active 2010 Medical SUB-Q, Drug Center form: INJ, Bedtime, Start date: 02/03/11 21:00:00, Stop date: 03/04/11 21:00:00 potassium chloride 40 mEq, 2 tab, PO No Longer [place] 20 mEq oral Route: PO, Active 2010 Medical tablet, extended Drug form: Cent er release ERTAB, ONCE, Start date: 02/03/11 14:29:00, Stop date: 02/03/11 14:29:00 potassium chloride 40 mEq, 2 tab, PO No Longer Zeider [place] 20 mEq oral Route: PO, Active 2010 Medical tablet, extended Drug form: Cent er release ERTAB, Daily, Start date: 02/03/11 9:00:00, Stop date: 03/05/11 8:00:00 dexamethasone 3 mg, 1.5 tab, PO No Longer [place] [facility] Route: PO, Active 2010 Medical Drug form: Center TAB, TID, Start date: 02/03/11 8:00:00, Duration: 2 day, Stop date: 02/04/11 17:00:00 insulin 15 unit, 0.15 SUB-Q No Longer Ash [facility] s isophane-NPH mL, Route: Active 2010 Medical SUB-Q, Drug Center form: INJ, Q24H, Start date: 02/03/11 0:00:00, Duration: 30 day, Stop date: 03/04/11 0:00:00 Keppra 500 mg, 1 tab, PO No Longer [place] [facility] Route: PO, Active 2010 Medical Drug form: Center TAB, Q12H, Start date: 02/02/11 21:00:00, Duration: 30 day, Stop date: 03/04/11 9:00:00 hydrALAZINE 25 mg 25 mg, 1 tab, PO No Longer [place] 02/01 [facility] oral tablet Route: PO, Active 2010 Medical Drug form: Center TAB, BID, Start date: 02/01/11 17:00:00, Stop date: 03/03/11 8:00:00 heparin 5,000 unit, 1 SUB-Q No Longer Rizvi [facility] mL, Route: Active 2010 Medical SUB-Q, Drug Center form: INJ, Q8H, Start date: 02/01/11 16:00:00, Duration: 30 day, Stop date: 03/03/11 8:00:00 Kayexalate 15 gm, 60 mL, PO No Longer [place] Route: PO, Active 2010 Medical Drug form: Center SUSP, ONCE, Start date: 02/01/11 13:19:00, Stop date: 02/01/11 13:19:00 potassium chloride 20 mEq, 1 tab, PO No Longer [place] [facility] 20 mEq oral Route: PO, Active 2010 Medical tablet, extended Drug form: Cent er release ERTAB, Daily, Start date: 02/01/11 9:00:00, Duration: 30 day, Stop date: 03/02/11 9:00:00 Crestor 20 mg, 2 tab, PO No Longer Zeider [facility] Route: PO, Active 2010 Medical Drug form: Center TAB, Daily, Start date: 02/01/11 9:00:00, Duration: 30 day, Stop date: 03/02/11 9:00:00 Lasix 40 mg oral 80 mg, 2 tab, PO No Longer Dean [facility] tablet Route: PO, Active 2010 Medical Drug form: Center TAB, Daily, Start date: 02/01/11 9:00:00, Duration: 30 day, Stop date: 03/02/11 9:00:00 atenolol 50 mg 50 mg, 1 tab, PO No Longer [place] [facility] oral tablet Route: PO, Active 2010 Medical Drug form: Center TAB, Daily, Start date: 02/01/11 9:00:00, Duration: 30 day, Stop date: 03/02/11 9:00:00 [place] Thyroid 120 mg, 2 tab, PO No Longer Zeider [facility] Route: PO, Active 2010 Medical Drug form: Center TAB, Daily, Start date: 02/01/11 9:00:00, Duration: 30 day, Stop date: 03/02/11 9:00:00 dexamethasone 4 mg, 1 tab, PO No Longer Zeider [facility] Route: PO, Active 2010 Medical Drug form: Center TAB, Q8H, Start date: 02/01/11 0:00:00, Duration: 2 day, Stop date: 02/02/11 16:00:00 Humulin N 20 unit, 0.2 SUB-Q No Longer Ash [place]man as mL, Route: Active 2010 Medical SUB-Q, Drug Center form: INJ, BID, Start date: 02/01/11 0:00:00, Stop date: 03/02/11 16:00:00 Keppra 100 mg/mL 500 mg, 5 mL, [place] No Longer Zeider [facility] oral solution Route: [place], Active 2010 Medical Drug form: [place] SOLN, Q12H, Start date: 01/31/11 21:00:00, Duration: 30 day, Stop date: 03/02/11 9:00:00 Insulin regular 1 unit, 0.01 SUB-Q No Longer Nur 01/31/ [facility] mL, Route: Active 2010 Medical SUB-Q, Drug Center form: SOLN, TID-Before Meals, PRN Blood Glucose Results, Start date: 01/31/11 17:22:00, Duration: 30 day, Stop date: 03/02/11 17:21:00 Milk of Magnesia 30 mL, Route: PO No Longer Nur [facility] PO, Drug Form: Active 2010 Medical SUSP, Daily, Center PRN Constipation, Start date: 01/31/11 17:22:00, Duration: 30 day, Stop date: 03/02/11 17:21:00 bisacodyl 10 mg, 1 supp, [place] Route: [place], Active 2010 Medical Drug form: [place] SUPP, Bedtime, PRN Constipation, Start date: 01/31/11 17:22:00, Duration: 30 day, Stop date: 03/02/11 17:21:00 ondansetron 4 mg, 2 mL, IVP No Longer Nur [place] as Route: IVP, Active 2010 Medical Drug form: [place] INJ, Q8H, PRN Nausea & Vomiting, Start date: 01/31/11 17:22:00, Duration: 30 day, Stop date: 03/02/11 17:21:00 Saline Flush 0.9% 3 mL, Route: IVP No Longer Nur [facility] IVP, Drug Active 2010 Medical Form: INJ, Center Q8H, PRN Line Flush, Start date: 01/31/11 17:22:00, Duration: 30 day, Stop date: 03/02/11 17:21:00, Administer at least once every 8 hoursAdministe r at least once every 8 hours [place] Route: SUB-Q, SUB-Q No Longer Zeider [facility] Drug form: Active 2010 Medical INJ, BID, Center Start date: 01/31/11 17:00:00, Duration: 30 day, Stop date: 03/02/11 9:00:00 metFORmin 500 mg 500 mg, 1 tab, PO No Longer Zeider [facility] oral tablet Route: PO, Active 2010 Medical Drug form: Center TAB, Q8H, Start date: 01/31/11 16:00:00, Duration: 30 day, Stop date: 03/02/11 8:00:00 Mckenzie 5/325 oral 1 tab, Route: PO No Longer Zeider [facility] [place] tablet PO, Drug Form: Active 2010 Medical TAB, Q4H, PRN Center as needed for pain, Start date: 01/31/11 14:56:00, Duration: 30 day, Stop date: 03/02/11 14:55:00 bisacodyl 10 mg, Route: [place] No Longer ider Osman as [place], Drug form: Active 2010 Medical SUPP, Daily, Center PRN as needed for constipation, Start date: 01/31/11 14:56:00, Duration: 30 day, Stop date: 03/02/11 14:55:00 Keppra 100 mg/mL 500 mg, 5 mL, [place] On Hold [facility] oral solution [place], Q12H, 60 2010 Medic al mL, Center Substitution Allowed, SOLN docusate sodium 100 mg, 1 cap, PO On Hold [facility] [place] 100 mg oral PO, BID, 60 2010 Medical capsule cap, Center Substitution Allowed, CAP dexamethasone 4 mg 4 mg, 1 tab, PO On Hold [facility] oral tablet PO, Q6H-02, 60 2010 Medic al tab, Center Substitution Allowed, TAB bisacodyl 10 mg 10 mg, 1 supp, [place] On Hold [facility] rectal suppository [place], Daily, 2010 Me dical PRN, 60 supp, [place] Constipation, Substitution Allowed, SUPP Mckenzie 5/325 oral 1 tab, PO, PO On Hold [facility] [place] tablet Q4H, PRN, 60 2010 Medical tab, Headache, Center Substitution Allowed, Maintenance, TAB Mckenzie 5/325 oral 1 tab, Route: PO No Longer Bonner [place] tablet PO, Drug Form: Active 2010 Medical TAB, Q4H, PRN Center Headache, Start date: 01/30/11 15:44:00, Duration: 30 day, Stop date: 03/01/11 15:43:00 dexamethasone 4 mg, 1 tab, PO No Longer Christianson [facility] Route: PO, Active 2010 Medical Drug form: Center TAB, Q6H-02, Start date: 01/29/11 12:00:00, Stop date: 02/28/11 6:00:00 insulin 20 unit, 0.2 SUB-Q No Longer Omidvar [facility] isophane-NPH mL, Route: Active 2010 Medical SUB-Q, Drug Center form: INJ, Q8H, Start date: 01/29/11 8:00:00, Stop date: 02/28/11 0:00:00 Keppra 100 mg/mL 500 mg, 5 mL, [place] No Longer Boss [facility] oral solution Route: JATIN, Active 2010 Medical Drug form: [place] SOLN, Q12H, Start date: 01/28/11 21:00:00, Duration: 30 day, Stop date: 02/27/11 9:00:00 ranitidine 15 150 mg, 10 mL, [place] No Longer Boss [facility] [place] mg/mL oral syrup Route: JATIN, Active 2010 [facility] Drug form: Center SYRP, Q12H, Start date: 01/28/11 21:00:00, Duration: 30 day, Stop date: 02/27/11 9:00:00 Dextrose 50% 6.25 gm, 12.5 IVP No Longer Shagagi [facility] Syringe mL, Route: Active 2010 Medical IVP, Drug Center Form: INJ, PRN, PRN Abnormal Lab Result, Start date: 01/28/11 17:39:00, Duration: 30 day, Stop date: 02/27/11 17:38:00 insulin regular 3 unit, 0.03 SUB-Q No Longer George [facility] human recombinant mL, Route: Active 2010 Med ical 100 units/mL SUB-Q, Drug Center injectable form: SOLN, solution PRN, PRN Abnormal Lab Result, Start date: 01/28/11 17:39:00, Duration: 30 day, Stop date: 02/27/11 17:38:00 metFORmin 1000 mg 1,000 mg, 1 PO No Longer Ash [facility] oral tablet tab, Route: Active 2010 Medical PO, Drug form: Center TAB, BID, Start date: 01/28/11 17:00:00, Duration: 30 day, Stop date: 02/27/11 9:00:00 heparin 5,000 unit, 1 SUB-Q No Longer [place] [facility] mL, Route: Active 2010 Medical SUB-Q, Drug Center form: INJ, Q8H, Start date: 01/28/11 0:00:00, Duration: 30 day, Stop date: 02/26/11 16:00:00 sodium phosphate 18 mmol, 6 mL, IV Active Day [place] Route: IV, 2010 Medical ONCE, Start Center date: 01/27/11 3:30:00, Stop date: 01/27/11 3:30:00 normal saline 0.9% 1,000 mL, IV No Longer George [facility] IV 1,000 mL Rate: 50 Active 2010 Medical ml/hr, Infuse Center over: 20 hr, Route: IV, Total Volume: 1,000, Start date: 01/26/11 17:48:00, Duration: 30 day, Stop date: 02/25/11 17:47:00 labetalol 200 mg, 1 tab, PO [place] Longer [place] Route: PO, Active 2010 Medical Drug form: [place] TAB, Q8H, Start date: 01/26/11 16:00:00, Stop date: 02/25/11 8:00:00 dexamethasone 6 mg, 1 tab, PO No Longer Rzivi [facility] Route: PO, Active 2010 Medical Drug form: [place] TAB, Q4H, Start date: 01/26/11 16:00:00, Duration: 30 day, Stop date: 02/25/11 12:00:00 propofol 10 mg/ml 1,000 mg, 100 IV No Longer Christian [facility] (titrate) 1,000 mg mL, Rate: Active 2010 Med ical Titrate as Center directed, Route: IV, Total Volume: 100 ml, Start date: 01/26/11 15:51:00, Duration: 30 day, Stop date: 02/25/11 15:50:00, Replace Every: 24 hr dexamethasone 10 mg, Route: IVP No Longer Voda [facility] IVP, Q6H, Active 2010 Medical Start date: Center 01/26/11 12:00:00, Duration: 30 day, Stop date: 02/25/11 6:00:00 mannitol 75 gm, 375 mL, IVPB No Longer Christian Osman as Route: IVPB, Active 2010 Medical Drug form: Center INJ, Q6H, Start date: 01/26/11 12:00:00, Duration: 30 day, Stop date: 02/25/11 6:00:00 mannitol 75 gm, 375 mL, IVPB No Longer Aisiku Osman as Route: IVPB, Active 2010 Medical Drug form: Center INJ, ONCE, Start date: 01/26/11 10:00:00, Stop date: 01/26/11 10:00:00 potassium 36 mmol, 12 IVPB No Longer Christian Dougie phosphate mL, Route: Active 2010 Medical IVPB, On Adm, Center Start date: 01/26/11 3:29:00, Duration: 1 doses or times, Stop date: 01/26/11 8:00:00 mannitol 50 gm, Route: IVPB No Longer Voda Osmana s IVPB, ONCE, Active 2010 Medical Start date: Center 01/25/11 17:50:00, Stop date: 01/25/11 17:50:00 heparin 5,000 unit, 1 SUB-Q No Longer Rizvi Doug[place] mL, Route: Active 2010 Medical SUB-Q, Drug Center form: INJ, Q8H, Start date: 01/25/11 16:00:00, Duration: 30 day, Stop date: 02/24/11 8:00:00 sodium phosphate 15 mmol, 5 mL, IV Active Christian Dougie Route: IV, 2010 Medical ONCE, Start Center date: 01/25/11 8:20:00, Stop date: 01/25/11 8:20:00 sodium phosphate 15 mmol, IVPB No Longer Christian [place] Route: IVPB, Active 2010 Medical PRN, PRN Center Abnormal Lab Result, Start date: 01/25/11 6:44:00, Duration: 30 day, Stop date: 02/24/11 6:43:00 magnesium sulfate 4 gm, 100 mL, IVPB No Longer Christian 01/25[facility] [place] Route: IVPB, Active 2010 Medical Drug form: Center INJ, ONCE, Start date: 01/25/11 6:44:00, Duration: 1 doses or times, Stop date: 01/25/11 6:44:00, For Mg = 1.5 - 1.7 mg/dLFor Mg = 1.5 - 1.7 mg/dL hydrALAZINE 10 mg, 0.5 mL, IV No Longer [facility] 01/25[facility] Route: IV, Active 2010 Medical Drug form: Center INJ, Q30Min, PRN Hypertension, Start date: 01/25/11 0:14:00, Duration: 30 day, Stop date: 02/24/11 0:13:00 dexamethasone 10 mg, 1 mL, IV No Longer Rizvi 01/25[facility] Route: IV, Active 2010 Medical Drug form: Center INJ, Q6H, Start date: 01/25/11 0:00:00, Stop date: 02/23/11 18:00:00 Insulin regular 99 mL, Rate: IV No Longer Bursaw [facility] 100 unit + Sodium TITRATE, Active 2010 Medic al Chloride 0.9% IV Route: IV, Cent er 99 mL Total Volume: 100, Start date: 01/24/11 23:59:00, Duration: 30 day, Stop date: 02/23/11 23:58:00 Dextrose 50% 12.5 gm, 25 IVP No Longer [place] 01[place] [place] Syringe mL, Route: Active 2010 Medical IVP, Drug Center Form: INJ, PRN, PRN Abnormal Lab Result, Start date: 01/24/11 23:41:00, Duration: 30 day, Stop date: 02/23/11 23:40:00 Insulin regular 100 mL, Rate: IVPB No Longer [facility] 01/25[facility] 100 unit + Sodium Start at 0.05 2010 Medical Chloride 0.9% units/kg/hour- Mitch ter (titrate) 100 mL , Route: IVPB, Total Volume: 100, Duration: 30 day, Stop date: 02/23/11 23:41:00, Replace Every: 24 hr labetalol 10 mg, 2 mL, IV No Longer [place] 01/25[facility] [place] Route: IV, Active 2010 Medical Drug form: Center INJ, Q15Min, PRN Hypertension, Start date: 01/24/11 22:36:00, Duration: 30 day, Stop date: 02/23/11 22:35:00 levetiracetam 500 mg, Route: IV No Longer Boss [facility] IV, Q12H, Active 2010 Medical Start date: [place] 01/24/11 21:00:00, Duration: 30 day, Stop date: 02/23/11 9:00:00 famotidine 20 mg, 2 mL, IV No Longer Boss Osman as Route: IV, Active 2010 Medical Drug form: Center INJ, Q12H, Start date: 01/24/11 21:00:00, Stop date: 02/23/11 9:00:00 propofol 10 mg/ml 1,000 mg, 100 IV No Longer Christian Dougie (titrate) 1,000 mg mL, Rate: Active 2010 Med ical Titrate as Center directed, Route: IV, Total Volume: 100 ml, Start date: 01/24/11 20:56:00, Duration: 30 day, Stop date: 02/23/11 20:55:00, Replace Every: 12 hr chlorhexidine 15 ml, Route: S&SPIT No Longer Ryan [facility] [place] topical 0.12% S&SPIT, Q4H, Active 2010 Medic al liquid Drug form: [place] LIQ, Start date: 01/24/11 20:00:00, Duration: 30 day, Stop date: 02/23/11 16:00:00 niCARdipine 40 mg 40 mg, 200 mL, IV No Longer George 01/25 [place] in [place] 200 ml IV 40 Rate: Titrate, Active 2010 Medical mg Route: IV, Center Total Volume: 200 mL, Duration: 30 day, Stop date: 02/23/11 19:06:00, Replace Every: 24 hr vancomycin 1 gm, Route: IVPB No Longer Boss Osman as IVPB, Drug Active 2010 Medical form: INJ, [place] [id number], Start date: 01/24/11 9:00:00, Duration: 30 day, Stop date: 02/22/11 21:00:00 famotidine 20 mg 20 mg, 1 tab, PO No Longer Christian Dougie oral tablet Route: PO, Active 2010 Medical Drug form: [place] TAB, Q12H, Start date: 01/23/11 21:00:00, Duration: 30 day, Stop date: 02/22/11 9:00:00 potassium chloride 20 mEq, PO, PO On Hold [facility] [place] 20 mEq oral Daily, 2010 Medical tablet, extended Substitution Ce nter release Allowed, TAB Lasix 40 mg oral 80 mg, 2 tab, PO On Hold H [place] tablet PO, Daily, 30 2010 Medical tab, Center Substitution Allowed, TAB heparin 5000 5,000 unit, 1 SUB-Q No Longer Bursaw [place] units/mL mL, Route: Active 2010 Medical injectable SUB-Q, Drug Center solution form: INJ, Q8H, Start date: 01/23/11 16:00:00, Duration: 30 day, Stop date: 02/22/11 8:00:00 [place] 250 mcg, SUB-Q On Hold [place] SUB-Q, BID, 2010 Medical Substitution Center Allowed, INJ cephalexin 500 mg, PO, PO On Hold [place] monohydrate 500 mg TID, 2010 Medic al oral tablet Substitution Center Allowed, CAP Levaquin 500 mg 1 tab, PO, PO [place] Hold [place] oral tablet Q24H, 10 tab, 2010 Medica l Substitution Center Allowed, TAB metFORmin 500 mg 500 mg, PO, PO On Hold [place] oral tablet TID, 2010 Medical Substitution Center Allowed, TAB Crestor 20 mg oral 1 tab, PO, PO On Hold [place] tablet Daily, 30 tab, 2010 Medical Substitution Center Allowed, TAB benzonatate 200 mg 1 cap, PO, PO On Hold [facility] oral capsule TID, 30 cap, 2010 Medica l Substitution Center Allowed, CAP atenolol 50 mg 1 tab, PO, PO On Hold Osman as oral tablet Daily, 30 tab, 2010 Medic al Substitution Center Allowed [place] Thyroid 120 1 tab, PO, PO On Hold Zeider [place] mg oral tablet Daily, 30 tab, 2010 Me dical Substitution Center Allowed, TAB docusate 100 mg, 1 cap, PO No Longer [place] Route: PO, Active 2010 Medical Drug form: Center CAP, BID, Start date: 01/23/11 9:00:00, Stop date: 02/21/11 17:00:00 Senna 8.6 mg oral 8.6 mg, 1 tab, PO No Longer Nur 01/23 [facility] [place] tablet Route: PO, Active 2010 Medical Drug Form: Center TAB, Q12H, Start date: 01/23/11 9:00:00, Duration: 30 day, Stop date: 02/21/11 21:00:00 levetiracetam 500 mg, 1 tab, PO No Longer Christian [facility] Route: PO, Active 2010 Medical Drug form: [place] TAB, Q12H, Start date: 01/23/11 9:00:00, Duration: 30 day, Stop date: 02/21/11 21:00:00 calcium chloride 1,000 mg, 10 IVPB No Longer Day [facility] mL, Route: Active 2010 Medical IVPB, ONCE, [place] Start date: 01/23/11 8:30:00, Stop date: 01/23/11 8:30:00 magnesium sulfate 2 gm, 50 mL, IVPB No Longer Day [facility] Route: IVPB, Active 2010 Medical Drug form: [place] INJ, Q2H, Start date: 01/23/11 8:20:00, Duration: 2 doses or times, Stop date: 01/23/11 10:00:00 dexamethasone 4 mg, 1 tab, PO No Longer Christian 01/23[facility] Route: PO, Active 2010 Medical Drug form: [place] TAB, Q6H, Start date: 01/23/11 6:00:00, Duration: 30 day, Stop date: 02/22/11 0:00:00 acetaminophen 650 mg, 2 tab, PO No Longer Nur [facility] Route: PO, Active 2010 Medical Drug form: [place] TAB, Q4H, PRN Pain/Fever, Start date: 01/23/11 5:22:00, Duration: 30 day, Stop date: 02/22/11 5:21:00 morphine Sulfate 2 mg, 1 mL, IVP No Longer Rizvi [facility] Route: IVP, Active 2010 Medical Drug form: [place] INJ, Q4H, PRN Pain Score 4-6, Start date: 01/23/11 5:22:00, Duration: 30 day, Stop date: 02/22/11 5:21:00, Hold for respiratory rate of 8 or less NS + KCL 20mEq/L 1,000 mL, IV No Longer Christian [facility] 1000ml (Premix) Rate: 60 Active 2010 Medical 1,000 mL 1,000 mL ml/hr, Infuse Center over: 16.7 hr, Route: IV, Total Volume: 1,000, Start date: 01/23/11 5:21:00, Duration: 30 day, Stop date: 02/22/11 5:20:00 insulin regular 5 unit, 0.05 SUB-Q No Longer Nur [facility] human recombinant mL, Route: Active 2010 Med ical 100 units/mL SUB-Q, Drug Center injectable form: SOLN, solution PRN, PRN Abnormal Lab Result, Start date: 01/23/11 5:14:00, Duration: 30 day, Stop date: 02/22/11 5:13:00 Dextrose 50% 6.25 gm, 12.5 IVP No Longer Nur 01/23[facility] Syringe mL, Route: Active 2010 [facility] IVP, Drug Center Form: INJ, PRN, PRN Abnormal Lab Result, Start date: 01/23/11 5:14:00, Duration: 30 day, Stop date: 02/22/11 5:13:00 Saline Flush 0.9% 5 ml, Route: IVP No Longer Webb 01/23[facility] IVP, Drug Active 2010 Medical Form: INJ, Center PRN, PRN Line Flush, Start date: 01/23/11 5:14:00, Duration: 30 day, Stop date: 02/22/11 5:13:00 bisacodyl 10 mg, 1 supp, [place] No Longer [place] 01/23[facility] [place] Route: MI, Active 2010 Medical Drug form: Center SUPP, Daily, PRN Constipation, Start date: 01/23/11 5:14:00, Duration: 30 day, Stop date: 02/22/11 5:13:00 acetaminophen 650 mg, 2 tab, PO No Longer Webb [facility] Route: PO, Active 2010 Medical Drug form: Center TAB, Q4H, PRN Pain/Fever, Start date: 01/23/11 5:14:00, Duration: 30 day, Stop date: 02/22/11 5:13:00 morphine Sulfate 2 mg, 1 mL, IVP No Longer Webb [facility] Route: IVP, Active 2010 Medical Drug form: Center INJ, Q1H, PRN Pain Score 7-10, Start date: 01/23/11 5:14:00, Duration: 30 day, Stop date: 02/22/11 5:13:00 ondansetron 4 mg, 2 mL, IVP No Longer Nur 01/23/ Osman as Route: IVP, Active 2010 Medical Drug form: Center INJ, Q8H, PRN Nausea & Vomiting, Start date: 01/23/11 5:14:00, Duration: 30 day, Stop date: 02/22/11 5:13:00 Allergies, Adverse Reactions, Alerts Substance Category Reaction Severity Reaction Status Date Comments S ource type Reported penicillins< Assertion rash Drug Active Data [place] sup>1</sup> allergy 1 migrated Med ical from [facility] on 01/22/15. Originally documented as PCN. erythromycin Assertion Drug Active Data [place] <sup>2</sup> allergy 1 migrated Me dical from [facility] on 01/22/15. Originally documented as ERYTHROMYC IN. aspirin<sup> Assertion severe Drug Active Data [facility] 3</sup> chest allergy 1 migrated Medical pain from [facility] on 01/22/15. Originally documented as ASPIRIN. Adhesive Assertion Allergy to Active Data [facility] Tape<sup>4</ substance 1 migrated Medical sup> from [facility] on 08/01/15. Originally documented as ADHESIVE TAPE. PHENobarbita Assertion Drug Active Data [facility] l<sup>5</sup allergy 1 migrated Me dical > from [facility] on 01/22/15. Originally documented as PHENOBARBI COSTA. ciprofloxaci Assertion Drug Active [facility] heparin Assertion Severe Drug Active [place] as [facility] phenobarbita Assertion rash Drug Active [facility] cefepime Assertion Drug Active [facility] Cortizone-10 Assertion Drug Active [facility] aspirin allergy to severe Allergy Active [place] substance chest Medica l pain Center erythromycin drug Allergy Active [facility] penicillins drug rash Allergy Active [facility] propensity takes Adverse Active [facility] to adverse skin off Reaction Med ical reactions Center to substance Immunizations Immunization Date Given Site Status Last Updated Comments Rosalinda rce influenza virus 02/23/2019 Not Given [facility] vaccine, Medical inactivated Center Results Order Name Results Value Reference Date Interpretation Comments Rosalinda rce Range HEMATOLOGY Segs 60.1 45.0 - 03/04 [place] 75.0 /2019 [facility] HEMATOLOGY Lymphocytes 32.3 20.0 - 03/04 [place] 40.0 2019 [facility] HEMATOLOGY Monocytes 5.9 2.0 - 12.0 03/04 [facility] HEMATOLOGY Eosinophils 0.7 0.0 - 4.0 03/04 [facility] s /2019 [facility] HEMATOLOGY Basophils 1.0 0.0 - 1.0 03/04 [facility] HEMATOLOGY Neutrophils 4.3 1.5 - 8.1 03/04 [facility] s # /2018 [facility] HEMATOLOGY Lymphocytes 2.3 1.0 - 5.5 03/04 [facility] # /2019 [facility] HEMATOLOGY Monocytes # 0.4 0.0 - 0.8 03/04 [facility] HEMATOLOGY Basophils # 0.1 0.0 - 0.2 03/04 [facility] 2019 [facility] HEMATOLOGY Sed Rate 2 0 - 20 03/04 [facility] HEMATOLOGY WBC 7.2 3.7 - 10.4 03/04 [facility] HEMATOLOGY RBC 3.76 4.20 - 03/04 [place] 5.40 [facility] HEMATOLOGY Hgb 12.1 12.0 - 03/04 [facility] 16.0 2019 [facility] HEMATOLOGY Hct 36.8 36.0 - 03/04 [place] 48.0 2019 [facility] HEMATOLOGY MCV 97.9 80.0 - 03/04 [facility] 98.0 2019 [facility] HEMATOLOGY MCH 32.1 27.0 - 10 [place] 31.0 2019 [facility] HEMATOLOGY MCHC 32.8 32.0 - 03/04 [place] 36.0 2019 [facility] HEMATOLOGY RDW 16.7 11.5 - 03/04 [place] 14.5 2019 [facility] HEMATOLOGY Platelet 131 133 - 450 03/04 2018 [facility] HEMATOLOGY MPV 8.9 7.4 - 10.4 03/04 [facility] IMMUNOLOGY C-REACTIVE <2.9 <=2.9 mg/L 1004 [place] PROTEIN [facility] BLOOD BANK ABO/Rh O POS 02/26 [facility] RESULTS /2018 [facility] BLOOD BANK Antibody Negative 02/26 [facility] RESULTS Scrn (02/26/19 7:49 AM) /2018 [facility] HEMATOLOGY Segs 67.8 45.0 - 02/25 [place] 75.0 /2018 [facility] HEMATOLOGY Lymphocytes 22.9 20.0 - 02/25 [place] 40.0 [facility] HEMATOLOGY Monocytes 7.8 2.0 - 12.0 02/25 [place] /2018 [facility] HEMATOLOGY Eosinophils 0.4 0.0 - 4.0 02/[facility] HEMATOLOGY Basophils 1.1 0.0 - 1.0 02/25 [facility] /2018 [facility] HEMATOLOGY Neutrophils 6.3 1.5 - 8.1 02/25 [place] # /2018 [facility] HEMATOLOGY Lymphocytes 2.1 1.0 - 5.5 02/25 [facility] # /2018 [facility] HEMATOLOGY Monocytes # 0.7 0.0 - 0.8 02/25 [facility] s /2018 [facility] HEMATOLOGY Basophils # 0.1 0.0 - 0.2 02/25 [facility] [place] [facility] /2018 [facility] HEMATOLOGY Macrocyte 1+ None Seen 02/25 [place] *ABN* /2018 [facility] (02/25/19 4:11 AM) [place] HEMATOLOGY WBC 9.2 3.7 - 10.4 02/25 [facility] HEMATOLOGY RBC 3.50 4.20 - 02/25 [place] 5.40 [facility] HEMATOLOGY Hgb 11.5 12.0 - 02/25 [place] 16.0 [facility] HEMATOLOGY Hct 35.5 36.0 - 02/25 [place] 48.0 [facility] HEMATOLOGY MCV 101.5 80.0 - 02/25 [place] 98.0 [facility] HEMATOLOGY MCH 32.7 27.0 - 02/25 [place] 31.0 [facility] HEMATOLOGY MCHC 32.2 32.0 - 02/25 [place] 36.0 [facility] HEMATOLOGY RDW 17.4 11.5 - 02/25 [place] 14.5 [facility] HEMATOLOGY Platelet 120 133 - 450 02/25 [facility] /2018 [facility] HEMATOLOGY MPV 9.2 7.4 - 10.4 02/25 [facility] CHEM PANEL Glucose Lvl 143 70 - 99 02/22 [facility] CHEM PANEL BUN 20 7 - 22 02/22 [facility] CHEM PANEL Creatinine 0.89 0.50 - 02/22 [facility] Lvl 1.40 [facility] CHEM PANEL Sodium Lvl 143 135 - 145 02/22 [facility] CHEM PANEL Potassium 4.3 3.5 - 5.1 02/22 [facility] l [facility] CHEM PANEL Chloride Lvl 107 95 - 109 02/22 [facility] CHEM PANEL CO2 27 24 - 32 02/22 [facility] CHEM PANEL AGAP 13.3 10.0 - 02/22 20.0 [facility] CHEM PANEL Calcium Lvl 8.9 8.5 - 10.5 02/22 [facility] CHEM PANEL eGFR 65 02/22 [facility] Comment: The Medical eGFR is Center [...] should be multiplied by the estimated BMI. HEMATOLOGY Segs 63.7 45.0 - 02/22 [place] 75.0 [facility] HEMATOLOGY Lymphocytes 26.8 20.0 - 02/22 40.0 [facility] HEMATOLOGY Monocytes 8.0 2.0 - 12.0 02/22 [facility] HEMATOLOGY Eosinophils 0.4 0.0 - 4.0 02/22 [facility] HEMATOLOGY Basophils 1.1 0.0 - 1.0 02/22 [facility] HEMATOLOGY Neutrophils 6.4 1.5 - 8.1 02/22 [facility] s # /2018 [facility] HEMATOLOGY Lymphocytes 2.7 1.0 - 5.5 02/22 [facility] s # /2018 [facility] HEMATOLOGY Monocytes # 0.8 0.0 - 0.8 02/22 [facility] HEMATOLOGY Basophils # 0.1 0.0 - 0.2 02/22 [facility] HEMATOLOGY WBC 10.1 3.7 - 10.4 02/22 [facility] HEMATOLOGY RBC 3.93 4.20 - 02/22 [facility] 5.40 [facility] HEMATOLOGY Hgb 12.7 12.0 - 02/22 [facility] 16.0 [facility] HEMATOLOGY Hct 38.8 36.0 - 02/22 [facility] 48.0 [facility] HEMATOLOGY MCV 98.9 80.0 - 02/22 [facility] 98.0 [facility] HEMATOLOGY MCH 32.4 27.0 - 02/22 31.0 [facility] HEMATOLOGY MCHC 32.7 32.0 - 02/22 [facility] 36.0 [facility] HEMATOLOGY RDW 17.3 11.5 - 02/22 [facility] 14.5 [facility] HEMATOLOGY Platelet 189 133 - 450 02/22 [facility] HEMATOLOGY MPV 9.8 7.4 - 10.4 02/22 [facility] CHEM PANEL Glucose Lvl 95 70 - 99 02/21 [facility] CHEM PANEL BUN 18 7 - 22 02/21 [facility] CHEM PANEL Creatinine 0.77 0.50 - 02/21 [facility] Lvl 1. [facility] CHEM PANEL Sodium Lvl 143 135 - 145 02/21 [facility] CHEM PANEL Potassium 4.1 3.5 - 5.1 02/21 Result [facility] Comment: [facility] Specimen Center Slightly Hemolyzed. CHEM PANEL Chloride Lvl 109 95 - 109 02/21 [facility] CHEM PANEL CO2 26 24 - 32 02/21 2018 [facility] CHEM PANEL Calcium Lvl 8.5 8.5 - 10.5 02/21 [facility] CHEM PANEL eGFR 78 02/21 Result Comment: The Medical eGFR is Center [...] multiplied by the estimated BMI. CHEM PANEL AGAP 12.1 10.0 - 02/21 [facility] . [facility] CHEM PANEL Magnesium 2.0 1.8 - 2.4 02/[address] CHEM PANEL Phosphorus 3.5 2.5 - 4.5 02/[address] ELECTROLYTE AGAP 11.1 10.0 - 02/19 [facility] 20.0 [facility] ELECTROLYTE Glucose Lvl 73 70 - 99 02/[address] ELECTROLYTE BUN 21 7 - 22 02/[address] ELECTROLYTE Creatinine 0.66 0.50 - 02/19 [facility] Lvl 1.40 [facility] ELECTROLYTE Sodium Lvl 140 135 - 145 02/19 [facility]2018 [facility] ELECTROLYTE Potassium 4.1 3.5 - 5.1 02/[address] ELECTROLYTE Chloride Lvl 107 95 - 109 02/19 [facility]2018 [facility] ELECTROLYTE CO2 26 24 - 32 02/[address] ELECTROLYTE Calcium Lvl 8.6 8.5 - 10.5 02/19 [place] [facility]2018 [facility] ELECTROLYTE Albumin Lvl 2.1 3.5 - 5.0 02/[address] ELECTROLYTE Phosphorus 3.0 2.5 - 4.5 02/[address] ELECTROLYTE eGFR 88 02/19 [facility] Comment: The Medical eGFR is Center calculated [...] should be multiplied by the estimated BMI. HEMATOLOGY Eosinophils 0.1 0.0 - 0.5 02/19 [facility] CHEM PANEL Magnesium 2.4 1.8 - 2.4 02/18 [facility] Lvl 2018 [facility] CHEM PANEL Phosphorus 5.0 2.5 - 4.5 02/[address] HEMATOLOGY Bands 0.0 0.0 - 11.0 02/[address] HEMATOLOGY Myelocytes 2.0 <=0.0 % 02/[address] HEMATOLOGY Atypical 0.0 <=0.0 % 02/18 [facility] [address] HEMATOLOGY NRBC 1 02/[address] HEMATOLOGY Plt Morph Normal Normal 02/18 [facility] (02/18/19 3:45 AM) /[facility] [place] HEMATOLOGY Macrocyte 1+ None Seen 02/18 [facility] *ABN* /2018 [facility] (02/18/19 3:45 AM) Center HEMATOLOGY Polychrom Slight 02/[address] TOXICOLOGY Vanco Tr 18.8 02/[address] TOXICOLOGY Vanco Tr TND 2200 02/[address] HEMATOLOGY Bands 1.0 0.0 - 11.0 02/[address] HEMATOLOGY Metamyelocyt 2.0 0.0 - 1.0 02/16 [facility] as es [facility] HEMATOLOGY Myelocytes 3.0 <=0.0 % 02/[address] HEMATOLOGY Atypical 0.0 <=0.0 % 02/[address] HEMATOLOGY Eosinophils 0.2 0.0 - 0.5 02/15 [facility] HEMATOLOGY Bands 0.0 0.0 - 11.0 02/[address] HEMATOLOGY Metamyelocyt 1.0 0.0 - 1.0 02/15 [place] [facility] HEMATOLOGY Myelocytes 1.0 <=0.0 % 02/[address] HEMATOLOGY Atypical 0.0 <=0.0 % 02/15 [facility] /[address] [place] [address] HEMATOLOGY Anisocyte 2+ None Seen [facility] (02/15/19 11:09 AM) Cente r HEMATOLOGY Macrocyte 1+ None Seen 02/15 [facility] (02/15/19 11:09 AM) Cente r HEMATOLOGY Eosinophils 0.4 0.0 - 0.5 02/13 [facility] s [facility] HEMATOLOGY Anisocyte 1+ None Seen 02/13 [facility] *ABN* /2018 [facility] (02/13/19 5:40 AM) [place] HEMATOLOGY Polychrom Slight 02/[address] HEMATOLOGY Large Plt Slight 02/13 [facility] [address] [place] [address] IMMUNOLOGY C-REACTIVE 96.6 <=2.9 mg/L 02/12 [facility] s [facility] [address] [place] [address] CHEM PANEL Lactic Acid 1.6 0.5 - 2.2 02/12 [facility] CHEM PANEL Lactic Acid 2.4 0.5 - 2.2 02/12 [facility] HEMATOLOGY Polychrom Slight 02/[address] HEMATOLOGY Large Plt Slight 02/[address] TOXICOLOGY Vanco Lvl 12.1 02/[address] TRIMETHOPRI Gram Stain Gram Stain 02/11 [place] M+SULFAMETH Report Performed /2018 Medical OXAZOLE:DESIRAE By: Center C:PT:[facility] E:ORDQN:MARIA TERESA [facility] TRIMETHOPRI Culture: Rare Proteus mirabilis 02/11 [facility] M+SULFAMETH Wound/Absces Many Enterococcus Species /2018 Medical OXAZOLE:DESIRAE s w/Gram Moderate Staphylococcus aureus Center C:PT:ISOLAT Stain Upon Supplemental Testing, This Isolate Was Found To Be E:ORDQN:MARIA TERESA 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 TRIMETHOPRI Staphylococc Staphyloco 02/11 [place]+SULFAMETH us aureus ccus /2018 Medical OXAZOLE:DESIRAE aureus Center C:PT:ISOLAT E:ORDQN:MARIA TERESA TRIMETHOPRI Enterococcus Enterococc 02/11 [facility] [place] M+SULFAMETH Species us Species /2018 Medical OXAZOLE:DESIRAE Center C:PT:ISOLAT E:ORDQN:MARIA TERESA TRIMETHOPRI Proteus Proteus 02/11 [facility]+SULFAMETH mirabilis mirabilis /2018 Medical OXAZOLE:DESIRAE Center C:PT:ISOLAT E:ORDQN:MARIA TERESA TOXICOLOGY Vanco Lvl 14.3 02/10 [facility] CHEM PANEL Lactic Acid 1.6 0.5 - 2.2 02/10 [place] [facility] CHEM PANEL Magnesium 2.1 1.8 - 2.4 02/09 [facility] HEMATOLOGY RBC Morph Normal Normal 02/09 [facility] (02/09/19 9:04 AM) [facility] HEMATOLOGY Plt Morph Normal Normal 02/09 [facility] (02/09/19 9:04 AM) [facility] PARATHYROID Ca Ion WB 1.06 1.05 - 02/09 [facility] PROFILE 1. [facility] PARATHYROID Ca Norm WB 1.04 1.05 - 02/09 [facility] PROFILE 1. [facility] URINE AND UA Color Yellow Yellow 02/08 [facility] STOOL *NA* /2018 [facility] (02/08/19 3:55 AM) [place] URINE AND UA Turbidity Marked Clear 02/08 [facility] STOOL *ABN* /2018 [facility] (02/08/19 3:55 AM) [place] URINE AND UA Spec Grav 1.022 <=1.030 02/08 [facility] URINE AND UA pH 5.0 5.0 - 8.0 02/08 [facility] STOOL /2018 [facility] URINE AND UA Protein 100 mg/dL Negative 02/08 [facility] STOOL mg/dL /2018 [facility] URINE AND UA Glucose 500 mg/dL Negative 02/08 [facility] STOOL mg/dL [facility] URINE AND UA Ketones Negative Negative 02/08 [facility] STOOL mg/dL mg/dL [facility] URINE AND UA Bili Negative Negative 02/08 [facility] STOOL *NA* /2018 [facility] (02/08/19 3:55 AM) [place] URINE AND UA Blood Negative Negative 02/08 [facility] (02/08/19 3:55 AM) [facility] URINE AND UA <1.0 0.1 - 1.0 02/08 [facility] Urobilinogen /2018 [facility] URINE AND UA Nitrite Negative Negative 02/08 [facility] (02/08/19 3:55 AM) /2018 [facility] URINE AND UA Leuk Est Negative Negative 02/08 [facility] (02/08/19 3:55 AM) /2018 [facility] URINE AND UA Sq Epi Occasional Few /LPF 02/08 [facility] STOOL /LPF [facility] URINE AND UA WBC 13 0 - 5 02/08 [facility] [address] [place] [address] URINE AND UA RBC 4 0 - 2 02/08 [facility] [address] [place] [address] URINE AND UA Bacteria Occasional None Seen 02/[place] /HPF /HPF /2018 [facility] URINE AND UA Mucus Few /LPF None Seen 02/08 [facility] STOOL /LPF [address] [place] [address] URINE AND UA Hyal Cast 5 0 - 2 02/08 [facility] URINE AND UA Gran Cast 3-5 /LPF None Seen 02/08 [facility] STOOL /LPF /2018 [facility] URINE CHEM U Sodium 30 02/08 [facility] [address] [place] [address] URINE CHEM U Creatinine 135.00 02/08 [facility] [address] [place] [address] Culture: 10,000 - 02/08 [facility] Urine 50,000 [facility] CFU/mL Center Skin Era CARDIAC Troponin-I <0.02 0.00 - 02/08 [facility] ENZYMES 0.40 [facility] HEMATOLOGY Sed Rate 95 0 - 20 02/08 [facility] /[address] [place] [address] IMMUNOLOGY C-REACTIVE 81.9 <=2.9 mg/L 02/[place] /2018 [facility] PARATHYROID Ca Ion WB 1.19 1.05 - 02/08 [place] PROFILE 1. [facility] PARATHYROID Ca Norm WB 1.17 1.05 - 02/08 [place] PROFILE 1. [facility] CHEM PANEL Osmolality 314 280 - 300 02/08 [facility] [address] [place] [address] URINE AND UA Ketones Trace Negative 02/08 [facility] STOOL mg/dL mg/dL /2018 [facility] PARATHYROID Ca Ion WB 1.08 1.05 - 02/07 [facility] PROFILE 1.25 [facility] PARATHYROID Ca Norm WB 1.09 1.05 - 02/07 [facility] PROFILE 1. [facility] ANEMIA Vitamin B12 538 254 - 1320 02/06 [facility] STUDY Lvl /2018 [facility] ANEMIA Folate Lvl 16.9 >=3.0 02/06 [facility] STUDY ng/mL /2018 [facility] CHEM PANEL Ammonia 13.0 <=45.0 02/06 [facility] uMol/L /2018 [facility] CHEM PANEL VITAMIN B1 172.6 66.5 - 02/06 Result [facility] (THIAMINE) 200.0 Comment: This Medical WHOLE BLOOD test was Center developed and its performance characteristi cs
determ ined by [facility]. It has not been cleared or
approv ed by the Food and Drug Administratio n.
Perfor med At: [facility] [address] [place], [place] [id number]<br/ >Kosta Tucker MD Ph:[phone] IMMUNOLOGY Homocyst Tot 17.3 0.0 - 15.0 02/06 [place] [facility] IMMUNOLOGY MMA Qnt 179 0 - 378 02/06 [facility] [address] [place] [address] SPECIAL Hgb A1C 8.5 <=5.6 % 02/06 [facility] CHEMISTRY [facility] CARDIAC Troponin-I 0.03 0.00 - 02/05 [facility] ENZYMES 0.40 [facility] CARDIAC Total CK 200 12 - 191 02/05 [facility] ENZYMES [facility] CARDIAC CK MB 1.5 0.5 - 3.6 02/05 [facility] ENZYMES [facility] CARDIAC CK MB Index 0.8 0.0 - 2.5 02/05 [facility] ENZYMES [facility] CHEM PANEL B/C Ratio 16 6 - 25 02/[address] CHEM PANEL Total 6.4 6.4 - 8.4 02/05 [facility] Protein [facility] CHEM PANEL Albumin Lvl 2.2 3.5 - 5.0 02/05 [place] [facility] CHEM PANEL Globulin 4.2 2.7 - 4.2 02/05 [facility] [place] /[address] [place] [address] CHEM PANEL A/G Ratio 0.5 0.7 - 1.6 02/05 [facility] CHEM PANEL AST 184 0 - 37 02/05 [facility] CHEM PANEL Alk Phos 330 39 - 136 02/05 [facility] CHEM PANEL Bili Total 0.6 0.2 - 1.3 02/05 [facility] CHEM PANEL ALT 103 0 - 65 02/05 [facility] CHEM PANEL Vitamin D, 6.5 30.0 - 02/05 [facility] 25-OH, Total 100.0 [facility] URINE AND UA Color Dark Yellow Yellow 02/05 [facility] STOOL *NA* /2018 [facility] (02/05/19 2:43 PM) [place] URINE AND UA Turbidity Marked Clear 02/05 [facility] *ABN* [facility] (02/05/19 2:43 PM) [place] URINE AND UA Spec Grav 1.022 <=1.030 02/05 [facility] /2018 [facility] URINE AND UA pH 6.0 5.0 - 8.0 02/05 [facility] URINE AND UA Protein 100 mg/dL Negative 02/05 [facility] mg/dL /2018 [facility] URINE AND UA Glucose 500 mg/dL Negative 02/05 [facility] mg/dL [facility] URINE AND UA Ketones Trace Negative 02/05 [facility] mg/dL mg/dL [facility] URINE AND UA Bili Negative Negative 02/05 [facility] *NA* /2018 [facility] (02/05/19 2:43 PM) [place] URINE AND UA Blood Negative Negative 02/05 [facility] (02/05/19 2:43 PM) [facility] URINE AND UA 2.0 0.1 - 1.0 02/05 [facility] Urobilinogen /2018 [facility] URINE AND UA Nitrite Negative Negative 02/05 [facility] (02/05/19 2:43 PM) [facility] URINE AND UA Leuk Est Negative Negative 02/05 [facility] (02/05/19 2:43 PM) [facility] URINE AND UA Sq Epi Occasional Few /LPF 02/05 [facility] STOOL /LPF /2018 [facility] URINE AND UA WBC 4 0 - 5 02/05 [facility] STOOL /2018 [facility] URINE AND UA RBC 2 0 - 2 02/05 [facility] URINE AND UA Bacteria Few /HPF None Seen 02/[facility] /2018 [facility] URINE AND UA Mucus Few /LPF None Seen 02/05 [facility] STOOL /LPF /2018 [facility] URINE AND UA Uric Ac Many /HPF None Seen 02/[place] /HPF /2018 [facility] HEMATOLOGY Neutrophils 12.0 1.5 - 8.1 01/09 [place] # [facility] Center HEMATOLOGY Lymphocytes 2.2 1.0 - 5.5 01/[place] # /2018 [facility] HEMATOLOGY Monocytes # 0.8 0.0 - 0.8 01/09 [facility] HEMATOLOGY Segs 78.0 45.0 - 01/09 [place] 75.0 [facility] HEMATOLOGY Bands 0.0 0.0 - 11.0 01/09 [facility] HEMATOLOGY Lymphocytes 14.0 20.0 - 01/09 [place] 40.0 [facility] HEMATOLOGY Monocytes 5.0 2.0 - 12.0 01/09 [facility] HEMATOLOGY Metamyelocyt 1.0 0.0 - 1.0 01/09 [facility] as es [facility] HEMATOLOGY Myelocytes 2.0 <=0.0 % 01/09 [facility] HEMATOLOGY Atypical 0.0 <=0.0 % 01/09 [facility] Lymphs [facility] HEMATOLOGY NRBC 3 01/09 [facility]2018 [facility] HEMATOLOGY Anisocyte 1+ None Seen 01/09 [facility] (01/09/19 5:01 AM) Center HEMATOLOGY Macrocyte 1+ None Seen 01/09 [facility] (01/09/19 5:01 AM) Center HEMATOLOGY Polychrom Moderate None Seen 01/09 [facility] (01/09/19 5:01 AM) Center HEMATOLOGY Large Plt slight 01/09 [facility] HEMATOLOGY WBC 15.4 3.7 - 10.4 01/09 [facility] HEMATOLOGY RBC 2.79 4.20 - 01/09 [place] 5.40 [facility] HEMATOLOGY Hgb 9.6 12.0 - 01/09 [place] 16.0 [facility] HEMATOLOGY Hct 29.3 36.0 - 01/09 [place] 48.0 [facility] HEMATOLOGY MCV 104.8 80.0 - 01/09 [place] 98.0 [facility] HEMATOLOGY MCH 34.5 27.0 - 08 31.0 [facility] HEMATOLOGY MCHC 32.9 32.0 - 01/09 36.0 [facility] HEMATOLOGY RDW 22.7 11.5 - 08 14.5 [facility] HEMATOLOGY Platelet 119 133 - 450 01/09 [facility] HEMATOLOGY MPV 9.8 7.4 - 10.4 01/09 [facility] CHEM PANEL Glucose Lvl 79 70 - 99 01/07 [facility] CHEM PANEL BUN 27 7 - 22 01/07 [facility] CHEM PANEL Creatinine 0.77 0.50 - 08 [facility] Lvl 1.40 [facility] CHEM PANEL Sodium Lvl 142 135 - 145 01/07 [facility] CHEM PANEL Potassium 4.2 3.5 - 5.1 01/[facility] CHEM PANEL Chloride Lvl 106 95 - 109 01/07 [facility] CHEM PANEL CO2 28 24 - 32 01/07 [facility] CHEM PANEL AGAP 12.2 10.0 - 01/07 [place] 20.0 [facility] CHEM PANEL Calcium Lvl 8.6 8.5 - 10.5 01/07 [facility] CHEM PANEL eGFR 78 01/07 [facility] Comment: The Medical eGFR is Center [...] multiplied by the estimated BMI. CHEM PANEL Magnesium 2.1 1.8 - 2.4 01/07 [facility] Lvl /2018 [facility] CHEM PANEL Phosphorus 3.7 2.5 - 4.5 01/[address] HEMATOLOGY Neutrophils 14.2 1.5 - 8.1 01/07 [facility] s # /2018 [facility] HEMATOLOGY Lymphocytes 6.1 1.0 - 5.5 01/07 [facility] s # /2018 [facility] HEMATOLOGY Monocytes # 0.4 0.0 - 0.8 01/07 [facility] /[address] [place] [address] HEMATOLOGY Basophils # 0.2 0.0 - 0.2 01/07 [facility] /2018 [facility] HEMATOLOGY Segs 67.0 45.0 - 01/07 [facility] 75.0 [facility] HEMATOLOGY Bands 0.0 0.0 - 11.0 01/[address] HEMATOLOGY Lymphocytes 29.0 20.0 - 01/07 [place] 40.0 [facility] HEMATOLOGY Monocytes 2.0 2.0 - 12.0 01/[address] HEMATOLOGY Basophils 1.0 0.0 - 1.0 01/[address] HEMATOLOGY Myelocytes 1.0 <=0.0 % 01/[address] HEMATOLOGY Atypical 0.0 <=0.0 % 01/07 [facility] Lymphs [facility] HEMATOLOGY NRBC 2 01/[address] HEMATOLOGY Plt Morph Normal Normal 01/07 [facility] (01/07/19 5:31 AM) [facility] HEMATOLOGY Anisocyte 1+ None Seen 01/07 [facility] (01/07/19 5:31 AM) [place] HEMATOLOGY Macrocyte 1+ None Seen 01/07 [facility] (01/07/19 5:31 AM) [place] HEMATOLOGY Polychrom Moderate None Seen 01/07 [facility] (01/07/19 5:31 AM) [place] HEMATOLOGY WBC 21.2 3.7 - 10.4 01/[address] HEMATOLOGY RBC 2.83 4.20 - 01/07 [place] 5.40 [facility] HEMATOLOGY Hgb 9.6 12.0 - 01/07 [facility] 16.0 [facility] HEMATOLOGY Hct 29.6 36.0 - 01/07 [facility] 48.0 [facility] HEMATOLOGY MCV 104.5 80.0 - 01/07 [facility] 98.0 [facility] HEMATOLOGY MCH 33.9 27.0 - 08 [place] 31.0 [facility] HEMATOLOGY MCHC 32.4 32.0 - 01/07 36.0 [facility] HEMATOLOGY RDW 19.9 11.5 - 01/07 [facility] 14.5 [facility] HEMATOLOGY Platelet 139 133 - 450 01/07 [facility] HEMATOLOGY MPV 10.6 7.4 - 10.4 01/07 [facility] CHEM PANEL Glucose Lvl 130 70 - 99 01/06 [facility] CHEM PANEL BUN 27 7 - 22 01/06 [facility] CHEM PANEL Creatinine 1.34 0.50 - 01/06 [facility] Lvl 1.40 [facility] CHEM PANEL Sodium Lvl 145 135 - 145 01/06 [facility] CHEM PANEL Potassium 4.0 3.5 - 5.1 01/06 [facility] l [facility] CHEM PANEL Chloride Lvl 106 95 - 109 01/06 [facility] CHEM PANEL CO2 27 24 - 32 01/06 [facility] CHEM PANEL Calcium Lvl 8.3 8.5 - 10.5 01/06 [place] [facility] CHEM PANEL eGFR 40 01/06 [facility] Comment: The Medical eGFR is Center [...] multiplied by the estimated BMI. CHEM PANEL AGAP 16.0 10.0 - 08 [place] 20.0 [facility] HEMATOLOGY Segs 84.9 45.0 - 0808 [place] 75.0 /2019 [facility] HEMATOLOGY Lymphocytes 11.4 20.0 - 08 [place] 40.0 /2018 [facility] HEMATOLOGY Monocytes 2.9 2.0 - 12.0 08 [facility] /[address] [place] [address] HEMATOLOGY Eosinophils 0.2 0.0 - 4.0 01/06 [facility] s /2018 [facility] HEMATOLOGY Basophils 0.6 0.0 - 1.0 01/06 [facility]2018 [facility] HEMATOLOGY Neutrophils 12.0 1.5 - 8.1 01/06 [facility] s # /2018 [facility] HEMATOLOGY Lymphocytes 1.6 1.0 - 5.5 01/06 [facility] s # /2018 [facility] HEMATOLOGY Monocytes # 0.4 0.0 - 0.8 01/06 [facility] s /2019 [facility] HEMATOLOGY Basophils # 0.1 0.0 - 0.2 01/06 [facility] HEMATOLOGY Macrocyte 1+ None Seen 01/06 [facility] *ABN* /2018 Medical (01/06/19 2:41 PM) [place] HEMATOLOGY Polychrom slight 01/06 [facility] HEMATOLOGY WBC 14.1 3.7 - 10.4 01/06 [facility] HEMATOLOGY RBC 2.86 4.20 - 01/06 [facility] 5.40 /2018 [facility] HEMATOLOGY Hgb 9.7 12.0 - 01/06 [facility] 16.0 [facility] HEMATOLOGY Hct 29.5 36.0 - 01/06 [facility] 48.0 [facility] HEMATOLOGY MCV 103.3 80.0 - 01/06 [facility] 98.0 2019 [facility] HEMATOLOGY MCH 33.8 27.0 - 08 [facility] 31.0 2019 [facility] HEMATOLOGY MCHC 32.7 32.0 - 08 [facility] 36.0 2019 [facility] HEMATOLOGY RDW 20.1 11.5 - 08 [facility] 14.5 [facility] HEMATOLOGY Platelet 119 133 - 450 01/06 [facility]2018 [facility] HEMATOLOGY MPV 10.2 7.4 - 10.4 01/[address] CARDIAC BNP 98 <=100 01/04 [facility] ENZYMES pg/mL /2018 [facility] ELECTROLYTE AGAP 12.0 10.0 - 01/04 [facility] S 20.0 [facility] ELECTROLYTE Glucose Lvl 83 70 - 99 01/04 [facility] S [facility] ELECTROLYTE BUN 23 7 - 22 01/04 [facility] S [facility] ELECTROLYTE Creatinine 0.88 0.50 - 01/04 [facility] S Lvl 1.40 [facility] ELECTROLYTE Sodium Lvl 140 135 - 145 01/04 [facility] S [facility] ELECTROLYTE Potassium 4.0 3.5 - 5.1 01/04 [facility] Lvl /2018 [facility] ELECTROLYTE Chloride Lvl 107 95 - 109 01/04 [facility] S [facility] ELECTROLYTE CO2 25 24 - 32 01/04 [facility] /2018 [facility] ELECTROLYTE Calcium Lvl 8.5 8.5 - 10.5 01/04 [place] [facility] ELECTROLYTE eGFR 66 01/04 [facility] Comment: The Medical eGFR is Center calculated [...] should be multiplied by the estimated BMI. HEMATOLOGY Eosinophils 0.2 0.0 - 0.5 01/04 [facility] # [facility] HEMATOLOGY Bands 3.0 0.0 - 11.0 01/04 [facility]2018 [facility] HEMATOLOGY Eosinophils 1.0 0.0 - 4.0 01/04 [facility] HEMATOLOGY Myelocytes 1.0 <=0.0 % 01/[address] HEMATOLOGY Atypical 0.0 <=0.0 % 01/04 [facility] Lymphs [facility] HEMATOLOGY NRBC 9 01/04 [facility] HEMATOLOGY Plt Morph Normal Normal 01/04 [facility] (01/04/19 12:50 PM) [facility] HEMATOLOGY Anisocyte 1+ None Seen 01/04 [facility] *ABN* /2018 [facility] (01/04/19 12:50 PM) [place] HEMATOLOGY Eosinophils 0.1 0.0 - 4.0 01/01 [facility] HEMATOLOGY Basophils 0.7 0.0 - 1.0 01/01 [facility] HEMATOLOGY Basophils # 0.2 0.0 - 0.2 01/01 [facility] [facility] PARATHYROID Ca Ion WB 1.08 1.05 - 01/01 [facility] PROFILE 06.25 [facility] PARATHYROID Ca Norm WB 1.04 1.05 - 01/01 [facility] 06.25 [facility] HEMATOLOGY Metamyelocyt 3.0 0.0 - 1.0 12/31 [facility] es [facility] CHEM PANEL Magnesium 2.1 1.8 - 2.4 12/30 [facility] CHEM PANEL Phosphorus 2.7 2.5 - 4.5 12/30 [facility] HEMATOLOGY Fibrinogen 463 230 - 510 12/30 [facility] HEMATOLOGY Eosinophils 0.1 0.0 - 0.5 12/30 [facility] PARATHYROID Ca Ion WB 1.08 1.05 - 12/30 [facility] PROFILE 06.25 [facility] PARATHYROID Ca Norm WB 1.10 1.05 - 12/30 [facility] PROFILE 06.25 [facility] CARDIAC Troponin-I 0.09 0.00 - 12/29 [facility] ENZYMES 0.40 [facility] CHEM PANEL Magnesium 2.0 1.8 - 2.4 12/29 [facility] CHEM PANEL Phosphorus 2.4 2.5 - 4.5 12/29 [facility] HEMATOLOGY Plt Morph Normal Normal 12/29 [facility] (12/29/18 12:04 AM) /2018 [facility] HEMATOLOGY INR 1.02 0.85 - 12/29 [place] 1.17 [facility] HEMATOLOGY PT 13.2 12.0 - 12/29 [place] 14.7 [facility] HEMATOLOGY PTT 31.0 22.9 - 12/29 [facility] [place] 35.8 [facility] HEMATOLOGY Fibrinogen 424 230 - 510 12/29 [facility] Lvl /2018 [facility] PARATHYROID Ca Ion WB 1.10 1.05 - 12/29 [place] PROFILE 1. [facility] PARATHYROID Ca Norm WB 1.11 1.05 - 12/29 [facility] PROFILE 1. [facility] CARDIAC Troponin-I 0.11 0.00 - 12/28 [facility] ENZYMES 0.40 [facility] CHEM PANEL Total 4.7 6.4 - 8.4 12/28 [facility] Protein [facility] CHEM PANEL Albumin Lvl 2.8 3.5 - 5.0 12/28 [facility] CHEM PANEL ALT 36 0 - 65 12/28 [facility] CHEM PANEL AST 18 0 - 37 12/28 [facility] CHEM PANEL Alk Phos 73 39 - 136 12/28 [facility] CHEM PANEL Bili Total 0.7 0.2 - 1.3 12/28 [facility] CHEM PANEL Bili Direct 0.2 0.0 - 0.3 12/28 [facility] CHEM PANEL Bili 0.5 0.0 - 1.0 12/28 [facility] Indirect [facility] CHEM PANEL Globulin 1.9 2.7 - 4.2 12/28 [facility] CHEM PANEL A/G Ratio 1.5 0.7 - 1.6 12/28 [facility] HEMATOLOGY Metamyelocyt 1.0 0.0 - 1.0 12/28 [place] [facility] HEMATOLOGY INR 1.13 0.85 - 12/28 [place] 1.17 [facility] HEMATOLOGY PT 14.3 12.0 - 12/28 [place] 14.7 [facility] HEMATOLOGY PTT 35.5 22.9 - 12/28 [facility] 35.8 [facility] SPECIAL Hgb A1C 11.1 <=5.6 % 12/28 [facility] CHEMISTRY /2018 [facility] URINE AND Occult Bld Negative Negative 12/27 [facility] STOOL Stl (12/27/18 6:12 AM) /2018 [facility] CARDIAC Troponin-I 0.06 0.00 - 12/27 [facility] ENZYMES 0.40 [facility] CHEM PANEL Total 4.7 6.4 - 8.4 12/27 [facility] Protein [address] CHEM PANEL Albumin Lvl 3.5 3.5 - 5.0 12/[address] CHEM PANEL ALT 30 0 - 65 12/[address] CHEM PANEL AST 11 0 - 37 12/[address] CHEM PANEL Alk Phos 55 39 - 136 12/[address] CHEM PANEL Bili Total 0.5 0.2 - 1.3 12/[address] CHEM PANEL Bili Direct 0.1 0.0 - 0.3 12/[address] CHEM PANEL Bili 0.4 0.0 - 1.0 12/[address] CHEM PANEL Globulin 1.2 2.7 - 4.2 12/[address] CHEM PANEL A/G Ratio 2.9 0.7 - 1.6 12/[address] HEMATOLOGY PT 15.8 12.0 - 12/27 [facility] 14.7 [facility] HEMATOLOGY INR 1.29 0.85 - 12/27 [facility] 1.17 [facility] HEMATOLOGY PTT 37.6 22.9 - 12/27 [facility] 35.8 /2019 [facility] HEMATOLOGY Fibrinogen 241 230 - 510 12/[facility] CHEM PANEL Total 5.1 6.4 - 8.4 12/[address] CHEM PANEL Albumin Lvl 3.1 3.5 - 5.0 12/[address] CHEM PANEL Globulin 2.0 2.7 - 4.2 12/[address] CHEM PANEL A/G Ratio 1.6 0.7 - 1.6 12/[address] CHEM PANEL ALT 51 0 - 65 12/[address] CHEM PANEL AST 16 0 - 37 12/[address] CHEM PANEL Alk Phos 88 39 - 136 12/[address] CHEM PANEL Bili Total 0.4 0.2 - 1.3 12/[address] CHEM PANEL Bili Direct 0.2 0.0 - 0.3 12/[address] CHEM PANEL Bili 0.2 0.0 - 1.0 12/[address] URINE AND UA Color Light Yellow Yellow 12/25 [facility] STOOL *NA* /2018 Medical (12/25/18 2:16 PM) Center URINE AND UA Turbidity Slight Clear 12/25 [facility] STOOL *ABN* [facility] (12/25/18 2:16 PM) Center URINE AND UA Spec Grav 1.013 <=1.030 12/25 [facility] STOOL [facility] URINE AND UA pH 5.0 5.0 - 8.0 12/25 [facility] STOOL [facility] URINE AND UA Protein Negative Negative 12/25 [facility] STOOL mg/dL mg/dL /2018 [facility] URINE AND UA Glucose 500 mg/dL Negative 12/25 [facility] STOOL mg/dL [facility] URINE AND UA Ketones Trace Negative 12/25 [facility] mg/dL mg/dL [facility] URINE AND UA Bili Negative Negative 12/25 [facility] STOOL *NA* [facility] (12/25/18 2:16 PM) [place] URINE AND UA Blood Negative Negative 12/25 [facility] (12/25/18 2:16 PM) /2018 [facility] URINE AND UA <1.0 0.1 - 1.0 12/25 [facility] Urobilinogen /2018 [facility] URINE AND UA Nitrite Negative Negative 12/25 [facility] (12/25/18 2:16 PM) /2018 [facility] URINE AND UA Leuk Est Negative Negative 12/25 [facility] (12/25/18 2:16 PM) /2018 [facility] URINE AND UA WBC 4 0 - 5 12/25 [facility] URINE AND UA RBC 1 0 - 2 12/25 [facility] URINE AND UA Sq Epi None Seen 12/25 [facility] CHEM PANEL Lactic Acid 1.8 0.5 - 2.2 12/25 [facility] HEMATOLOGY Thrombin 17.7 15.0 - 12/25 [place] Time 21.2 [facility] HEMATOLOGY D-Dimer 2.84 12/25 [facility] [address] [place] [address] BACTERIAL - MRSA by PCR Negative 12/25 [facility] SEROLOGY (12/25/18 12:22 AM) /2018 [facility] CHEM PANEL Lactic Acid 2.3 0.5 - 2.2 12/25 [facility] DRUG SCREEN U Amph Scr Negative Negative 12/[place] *NA* /2018 [facility] (12/25/18 12:22 AM) Cente r DRUG SCREEN U Christine [place]r Negative Negative [place] *NA* [facility] (12/25/18 12:22 AM) Cente r DRUG SCREEN U Benzodiaz Positive Negative 12/25 [facility] as Scr *ABN* Medical (12/25/18 12:22 AM) Cente r DRUG SCREEN U Cocaine Negative Negative 12/25 [place] Scr *NA* /2018 Medical (12/25/18 12:22 AM) Cente r DRUG SCREEN U Cannab [place] Negative Negative 12/[place] *NA[place] [facility] (12/25/18 12:22 AM) Cente r DRUG SCREEN U Opiate [place] Positive Negative 12/[place] *ABN Medical (12/25/18 12:22 AM) Cente r DRUG SCREEN U Negative Negative 12/25 [facility] Phencyclidin *NA* Medical e Scr (12/25/18 12:22 AM) Cente r DRUG SCREEN UDS Note See Note 12/25 [facility] (12/25/18 12:22 AM) /2018 Medic al Center HEMATOLOGY Heparin Negative 7 Negative 12/25 Result [facility] Ab(SRIDEVI) (12/25/18 12:22 AM) /2018 Comment: is Medical assay detects Center heparin antibodies of IgG isotype. Antibodies of other isotypes have been reported to cause heparin-induc ed thrombocytope davey. Therefore, if there is a strong clinical suspicion of HIT, additional study with a serotonin release assay is recommented. HEMATOLOGY Pat Od Value 0.215 12/25 [facility] HEMATOLOGY Pos CO Value 0.400 12/25 [facility] URINE AND UA Color Veronique Yellow 12/25 [place] STOOL *ABN* Medical (12/25/18 12:22 AM) Cente r URINE AND UA Turbidity Slight Clear 12/25 [facility] STOOL *ABN* Medical (12/25/18 12:22 AM) Cente r URINE AND UA Spec Grav 1.029 <=1.030 12/25 [facility] URINE AND UA pH 5.0 5.0 - 8.0 12/25 [facility] STOOL [facility] URINE AND UA Protein 100 mg/dL Negative 12/25 [facility] STOOL mg/dL /2018 [facility] URINE AND UA Glucose Negative Negative 12/25 [facility] mg/dL mg/dL [facility] URINE AND UA Ketones Trace Negative 12/25 [facility] mg/dL mg/dL [facility] URINE AND UA Bili Negative Negative 12/25 [facility] STOOL *NA* /2018 [facility] (12/25/18 12:22 AM) Cente r URINE AND UA Blood Moderate Negative 12/25 [facility] STOOL *ABN* [facility] (12/25/18 12:22 AM) Cente r URINE AND UA 4.0 0.1 - 1.0 12/25 [facility] Urobilinogen /2018 [facility] URINE AND UA Nitrite Negative Negative 12/25 [facility] (12/25/18 12:22 AM) Medic al [place] URINE AND UA Leuk Est Negative Negative 12/25 [facility] (12/25/18 12:22 AM) [facility] al [place] URINE AND UA Sq Epi Few /LPF Few /LPF 12/25 [facility] STOOL [facility] URINE AND UA WBC 3 0 - 5 12/25 [facility] URINE AND UA RBC 37 0 - 2 12/25 [facility] URINE AND UA Bacteria Occasional None Seen 12[place] /HPF /HPF [facility] URINE AND UA Mucus Few /LPF None Seen 12/25 [facility] /LPF /2018 [facility] URINE AND UA Renal Epi 23 <=0 /LPF 12/25 [facility] URINE AND UA Hyal Cast 1 0 - 2 12/25 [facility] /2018 [facility] VANCOMYCIN: Gram Stain Gram Stain 12/25 [place] SUSC:PT:ISO Report Performed Medical LATE:ORDQN: By: [facility] VANCOMYCIN: Culture: Moderate Staphylococ cus aureus , Upon Supplemental Testing, This Isolate Was Found To Be 12/25 [facility] SUSC:PT:ISO 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 /2018 Medical LATE:ORDQN: w/Gram Stain . [facility] Normal Respiratory Era Isolated VANCOMYCIN: Staphylococc Staphyloco 12/25 [place] SUSC:PT:ISO us aureus ccus Medical LATE:ORDQN: aureus [facility] BLOOD BANK ABO/Rh O POS 12/24 [facility] RESULTS /2018 [facility] BLOOD BANK Antibody Negative 5 12/24 Result [facility] RESULTS Scrn (12/24/18 6:54 PM) Comment: Medic al 12/24/2018 Center 20:18 [id number]
Patient has antibodies. Allow extra time for additional crossmatches. CARDIAC Total CK 62 12 - 191 12/24 [facility] ENZYMES [facility] CHEM PANEL Ammonia 27.0 <=45.0 12/24 [facility] uMol/L /2018 [facility] CHEM PANEL Lactic Acid 5.0 0.5 - 2.2 12/24 Result [facility] Lvl Comment: Medical Critical Center Result(s) called to Lisa Acharya at 12/24/2018 20:19 by fns. Read back OK. CHEM PANEL Procalcitoni 11.80 0.00 - 12/24 Result [facility] n Lvl 0. Comment: Medical CRITICAL Center RESULT CALLED TO LISA OSMAN AT 12/24/2018 21:21 BY SXP. READ BACK OK. CHEM PANEL eGFR 76 11/29 Result Comment: [...] CHEM PANEL Creatinine 0.79 0.50 - 11/29 [facility] Lvl 1.40 [facility] CHEM PANEL Glucose Lvl 104 70 - 99 11/29 [facility] CHEM PANEL Potassium 4.2 3.5 - 5.1 11/29 [facility] Lv [facility] CHEM PANEL BUN 19 7 - 22 11/29 [place] [facility] CHEM PANEL Calcium Lvl 9.3 8.5 - 10.5 11/29 [place] /2018 [facility] CHEM PANEL Sodium Lvl 140 135 - 145 11/29 [facility] [address] [place] [address] CHEM PANEL CO2 30 24 - 32 11/29 [facility] CHEM PANEL Chloride Lvl 104 95 - 109 11/[place] /[place] [facility] CHEM PANEL AGAP 10.2 10.0 - 11/29 [place] 20.0 /2018 [facility] URINE AND UA WBC 0-2 /HPF None Seen 11/29 [place] STOOL /HPF /2018 [facility] URINE AND UA Bacteria Few /HPF None Seen 11/[place] /HPF /2018 [facility] URINE AND UA Sq Epi Moderate Few /LPF 11/29 [facility] STOOL /LPF /2018 [facility] URINE AND UA RBC None Seen 0 - 2 11/29 [facility] (11/29/18 10:09 AM) /2018 [facility] URINE AND UA Mucus Few /LPF None Seen 11/29 [facility] /LPF /2018 [facility] URINE AND UA CaOx Jagruti Moderate None Seen 11/29 [place] ST[place]OL /HPF /HPF /2018 [facility] [place] URINE AND UA 0.2 0.1 - 1.0 11/29 [facility] Urobilinogen /2018 [facility] URINE AND UA Blood Negative Negative 11/29 [facility] (11/29/18 10:09 AM) Medica [facility] URINE AND UA Nitrite Negative Negative 11/29 [facility] (11/29/18 10:09 AM) [facility] URINE AND UA Bili Small Negative 11/29 [facility] STOOL *ABN* /2018 [facility] (11/29/18 10:09 AM) [place] URINE AND UA Leuk Est Negative Negative 11/29 [facility] (11/29/18 10:09 AM) /2018 Medica l [place] URINE AND UA Protein 100 mg/dL Negative 11/29 [facility] STOOL mg/dL /2018 [facility] URINE AND UA pH 5.5 5.0 - 8.0 11/29 [facility] STOOL /[address] [place] [address] URINE AND UA Ketones Negative Negative 11/29 [facility] STOOL *NA* /2018 [facility] (11/29/18 10:09 AM) Center URINE AND UA Glucose Negative Negative 11/29 [facility] (11/29/18 10:09 AM) /2018 [facility] URINE AND UA Color Yellow Yellow 11/29 [facility] STOOL *NA* /2018 [facility] (11/29/18 10:09 AM) [place] URINE AND UA Turbidity Slight Cloudy Clear 11/29 [facility] STOOL (11/29/18 10:09 AM) /2018 [facility] URINE AND UA Spec Grav >=1.030 <=1.030 11/29 [facility] STOOL *ABN* /2018 [facility] (11/29/18 10:09 AM) [place] HEMATOLOGY MPV 10.6 7.4 - 10.4 09/23 [facility] HEMATOLOGY MCV 91.5 80.0 - 09/23 [place] 98.0 [facility] HEMATOLOGY Hct 42.9 36.0 - 09/23 [place] 48.0 [facility] HEMATOLOGY MCH 31.0 27.0 - 09/23 [place] 31.0 [facility] HEMATOLOGY RDW 14.1 11.5 - 09/23 [place] 14.5 [facility] HEMATOLOGY MCHC 33.8 32.0 - 09/23 [place] 36.0 [facility] HEMATOLOGY Platelet 128 133 - 450 09/23 /2018 [facility] HEMATOLOGY Hgb 14.5 12.0 - 09/23 [place] 16.0 [facility] HEMATOLOGY WBC 10.8 3.7 - 10.4 09/23 [facility] HEMATOLOGY RBC 4.69 4.20 - 09/23 [place] 5.40 /2018 [facility] HEMATOLOGY Eosinophils 0.1 0.0 - 0.5 09/23 [place] # /2018 [facility] HEMATOLOGY Segs 70.7 45.0 - 09/23 [place] 75.0 2019 [facility] HEMATOLOGY Lymphocytes 21.8 20.0 - 09/23 [place] 40.0 2019 [facility] HEMATOLOGY Lymphocytes 2.4 1.0 - 5.5 09/23 [place] # /2018 [facility] HEMATOLOGY Neutrophils 7.6 1.5 - 8.1 09/23 [place] # /2018 [facility] HEMATOLOGY Monocytes # 0.7 0.0 - 0.8 09/23 [place] /2019 [facility] HEMATOLOGY Monocytes 6.7 2.0 - 12.0 09/23 /2018 [facility] HEMATOLOGY Basophils 0.3 0.0 - 1.0 09/23 [facility] HEMATOLOGY Eosinophils 0.5 0.0 - 4.0 09/23 [facility] CHEM PANEL Magnesium 2.2 1.8 - 2.4 09/23 [facility] CHEM PANEL Phosphorus 3.0 2.5 - 4.5 09/23 [facility] CHEM PANEL eGFR 69 09/23 Result Comment: [...] PANEL CO2 28 24 - 32 09/23 [facility] CHEM PANEL Sodium Lvl 141 135 - 145 09/23 [facility] CHEM PANEL Potassium 3.8 3.5 - 5.1 09/23 [facility] CHEM PANEL Chloride Lvl 107 95 - 109 09/23 [facility] CHEM PANEL AGAP 9.8 10.0 - 09/23 20.0 [facility] CHEM PANEL Calcium Lvl 8.1 8.5 - 10.5 09/23 [facility] CHEM PANEL BUN 23 7 - 22 09/23 [facility] CHEM PANEL Creatinine 0.86 0.50 - 09/23 [facility] CHEM PANEL Glucose Lvl 43 70 - 99 09/23 Result Comment: Medical Critical Center Result(s) called to Mony Figueroa at 09/23/2018 08:35 by FIDEL. Read back OK.
Reche cked HEMATOLOGY Hgb 14.6 12.0 - 09/23 [facility] 16.0 [facility] HEMATOLOGY Hct 44.7 36.0 - 09/23 [facility] 48.0 [facility] HEMATOLOGY RBC 4.85 4.20 - 09/23 5.40 /2018 [facility] HEMATOLOGY WBC 14.1 3.7 - 10.4 09/23 2018 [facility] HEMATOLOGY MPV 10.9 7.4 - 10.4 09/23 2018 [facility] HEMATOLOGY RDW 14.2 11.5 - 09/23 [facility] 14.5 [facility] HEMATOLOGY Platelet 114 133 - 450 09/23 [facility] HEMATOLOGY MCV 92.2 80.0 - 09/23 [facility] 98.0 [facility] HEMATOLOGY MCH 30.1 27.0 - 09/23 [facility] 31.0 [facility] HEMATOLOGY MCHC 32.6 32.0 - 09/23 [facility] 36.0 [facility] PARATHYROID Ca Norm WB 1.05 1.05 - 09/23 [facility] PROFILE 1. [facility] PARATHYROID Ca Ion WB 1.00 1.05 - 09/23 [facility] PROFILE 1. [facility] CHEM PANEL Bili Total 0.6 0.2 - 1.3 09/22 2018 [facility] CHEM PANEL AST 35 0 - 37 09/22 [facility] CHEM PANEL Alk Phos 95 39 - 136 09/22 2018 [facility] CHEM PANEL ALT 47 0 - 65 09/22 2018 [facility] CHEM PANEL eGFR 52 09/22 [facility] Comment: The Medical eGFR is Center [...] Albumin Lvl 2.3 3.5 - 5.0 09/22 [facility] CHEM PANEL Total 7.1 6.4 - 8.4 09/22 [facility] Protein 2018 [facility] CHEM PANEL CO2 26 24 - 32 09/[address] CHEM PANEL Calcium Lvl 8.1 8.5 - 10.5 09/22 [facility] CHEM PANEL Chloride Lvl 102 95 - 109 09/22 [facility]2018 [facility] CHEM PANEL Potassium 4.3 3.5 - 5.1 09/22 [facility] CHEM PANEL Sodium Lvl 135 135 - 145 09/[address] CHEM PANEL Creatinine 1.07 0.50 - 09/22 [facility] Lvl 1.40 [facility] CHEM PANEL Glucose Lvl 272 70 - 99 09/[address] CHEM PANEL BUN 29 7 - 22 09/[address] CHEM PANEL Globulin 4.8 2.7 - 4.2 09/[address] CHEM PANEL A/G Ratio 0.5 0.7 - 1.6 09/[address] CHEM PANEL B/C Ratio 27 6 - 25 09/[address] CHEM PANEL AGAP 11.3 10.0 - 09/22 [facility] 20.0 [facility] HEMATOLOGY Monocytes 6.5 2.0 - 12.0 09/[address] HEMATOLOGY Eosinophils 0.1 0.0 - 4.0 09/22 [facility]2018 [facility] HEMATOLOGY Basophils 0.2 0.0 - 1.0 09/[address] HEMATOLOGY Segs 73.8 45.0 - 09/22 [facility] 75.0 [facility] HEMATOLOGY Lymphocytes 19.4 20.0 - 09/22 [facility] 40.0 [facility] HEMATOLOGY Neutrophils 6.0 1.5 - 8.1 09/22 [facility] # [facility] HEMATOLOGY Lymphocytes 1.6 1.0 - 5.5 09/22 [facility] # /2018 [facility] HEMATOLOGY Monocytes # 0.5 0.0 - 0.8 09/22 s [facility] HEMATOLOGY MPV 11.3 7.4 - 10.4 09/22 [facility] HEMATOLOGY MCHC 33.1 32.0 - 09/22 36.0 [facility] HEMATOLOGY RDW 14.0 11.5 - 09/22 14.5 [facility] HEMATOLOGY Platelet 106 133 - 450 09/22 [facility] HEMATOLOGY MCV 93.1 80.0 - 09/22 98.0 [facility] HEMATOLOGY Hct 44.2 36.0 - 09/22 48.0 [facility] HEMATOLOGY MCH 30.8 27.0 - 09/22 31.0 [facility] HEMATOLOGY RBC 4.74 4.20 - 09/22 5.40 [facility] HEMATOLOGY WBC 8.1 3.7 - 10.4 09/22 [facility] HEMATOLOGY Hgb 14.6 12.0 - 09/22 16.0 [facility] CHEM PANEL Phosphorus 3.3 2.5 - 4.5 09/18 [facility] CHEM PANEL Magnesium 2.0 1.8 - 2.4 09/18 [facility] l [facility] CHEM PANEL eGFR 70 09/18 Result Comment: The Medical eGFR is Center [...] Calcium Lvl 8.7 8.5 - 10.5 09/18 [facility] CHEM PANEL Creatinine 0.84 0.50 - 09/18 [place] Lvl 1.40 [facility] CHEM PANEL Sodium Lvl 142 135 - 145 09/18 2018 [facility] CHEM PANEL BUN 32 7 - 22 09/18 [facility] CHEM PANEL Chloride Lvl 106 95 - 109 09/18 [facility] CHEM PANEL CO2 32 24 - 32 09/18 2018 [facility] CHEM PANEL Potassium 3.9 3.5 - 5.1 09/18 [place] Lvl /2018 [facility] CHEM PANEL Glucose Lvl 107 70 - 99 09/18 [facility] CHEM PANEL AGAP 7.9 10.0 - 09/18 [place] 20.0 [facility] HEMATOLOGY Monocytes # 0.7 0.0 - 0.8 09/18 [facility] s [facility] HEMATOLOGY Lymphocytes 1.7 1.0 - 5.5 09/18 [facility] s # [facility] HEMATOLOGY Neutrophils 6.0 1.5 - 8.1 09/18 [facility] HEMATOLOGY Basophils 0.1 0.0 - 1.0 09/18 [facility] HEMATOLOGY Monocytes 8.5 2.0 - 12.0 09/18 [facility] HEMATOLOGY Lymphocytes 20.3 20.0 - 09/18 40.0 [facility] HEMATOLOGY Segs 71.1 45.0 - 09/18 [place] 75.0 [facility] HEMATOLOGY MCHC 33.8 32.0 - 09/18 [place] 36.0 [facility] HEMATOLOGY RDW 14.1 11.5 - 09/18 [place] 14.5 [facility] HEMATOLOGY MCH 31.2 27.0 - 09/18 [place] 31.0 [facility] HEMATOLOGY MCV 92.2 80.0 - 09/18 [place] 98.0 2019 [facility] HEMATOLOGY Hct 44.7 36.0 - 09/18 [place] 48.0 2019 [facility] HEMATOLOGY RBC 4.85 4.20 - 09/18 [place] 5.40 2019 [facility] HEMATOLOGY WBC 8.5 3.7 - 10.4 09/18 [facility] HEMATOLOGY Hgb 15.1 12.0 - 09/18 [place] 16.0 2019 [facility] HEMATOLOGY MPV 11.8 7.4 - 10.4 09/18 [facility] HEMATOLOGY Platelet 81 133 - 450 09/18 [facility] PARATHYROID Ca Ion WB 1.09 1.05 - 09/18 [facility] PROFILE 1. [facility] PARATHYROID Ca Norm WB 1.09 1.05 - 09/18 [facility] PROFILE 1 [facility] CHEM PANEL Magnesium 2.0 1.8 - 2.4 09/17 [facility] CHEM PANEL Calcium Lvl 8.6 8.5 - 10.5 09/17 [facility] CHEM PANEL AGAP 6.4 10.0 - 09/17 [place] 20.0 [facility] CHEM PANEL eGFR 70 09/17 Result Comment: [...] PANEL Potassium 3.4 3.5 - 5.1 09/17 [facility] CHEM PANEL Sodium Lvl 142 135 - 145 09/17 [facility] CHEM PANEL Chloride Lvl 104 95 - 109 09/[facility] CHEM PANEL Creatinine 0.84 0.50 - 09/17 [facility] 1.40 [facility] CHEM PANEL CO2 35 24 - 32 09/17 [facility]2018 [facility] CHEM PANEL Glucose Lvl 112 70 - 99 09/17 [facility]2018 [facility] CHEM PANEL BUN 37 7 - 22 09/17 [facility]2018 [facility] CHEM PANEL Phosphorus 2.6 2.5 - 4.5 09/17 [facility] HEMATOLOGY Platelet 71 133 - 450 09/17 [facility] HEMATOLOGY MCHC 33.1 32.0 - 09/17 [place] 36.0 [facility] HEMATOLOGY MPV 10.7 7.4 - 10.4 09/17 [facility] HEMATOLOGY RDW 14.1 11.5 - 09/17 [place] 14.5 [facility] HEMATOLOGY MCH 30.4 27.0 - 09/17 [place] 31.0 [facility] HEMATOLOGY WBC 9.7 3.7 - 10.4 09/17 [facility] HEMATOLOGY MCV 92.0 80.0 - 09/17 [facility] 98.0 [facility] HEMATOLOGY Hct 44.7 36.0 - 09/17 [facility] 48.0 [facility] HEMATOLOGY RBC 4.86 4.20 - 09/17 [place] 5.40 /2018 [facility] HEMATOLOGY Hgb 14.8 12.0 - 09/17 [place] 16.0 [facility] HEMATOLOGY Lymphocytes 1.4 1.0 - 5.5 09/17 [place] # /2018 [facility] HEMATOLOGY Neutrophils 7.6 1.5 - 8.1 09/17 [place] # /2018 [facility] HEMATOLOGY Monocytes 7.0 2.0 - 12.0 09/17 [facility] HEMATOLOGY Basophils 0.5 0.0 - 1.0 09/17 [facility] HEMATOLOGY Lymphocytes 14.4 20.0 - 09/17 [place] 40.0 2019 [facility] HEMATOLOGY Monocytes # 0.7 0.0 - 0.8 09/17 [facility] HEMATOLOGY Segs 78.1 45.0 - 09/17 [place] 75.0 2019 [facility] PARATHYROID Ca Ion WB 1.11 1.05 - 09/17 [place] PROFILE 1. [facility] PARATHYROID Ca Norm WB 1.14 1.05 - 09/17 [facility] PROFILE 1. [facility] CHEM PANEL Magnesium 2.1 1.8 - 2.4 09/16 [facility] Lvl /2018 [facility] CHEM PANEL Phosphorus 2.0 2.5 - 4.5 09/16 [facility]2018 [facility] ELECTROLYTE AGAP 8.1 10.0 - 09/16 [facility] S 20.0 [facility] ELECTROLYTE eGFR 47 09/16 Result [facility] Comment: The Medical eGFR is Center [...] ELECTROLYTE CO2 33 24 - 32 09/16 [facility] 2018 [facility] ELECTROLYTE Calcium Lvl 8.4 8.5 - 10.5 09[place]16 [place] [facility] ELECTROLYTE Potassium 4.1 3.5 - 5.1 09/16 Result [facility] Comment: [facility] Moderately Hemolyzed. ELECTROLYTE Chloride Lvl 102 95 - 109 09/16 [facility] ELECTROLYTE Sodium Lvl 139 135 - 145 09/16 [facility]2018 [facility] ELECTROLYTE BUN 37 7 - 22 09/[address] ELECTROLYTE Creatinine 1.17 0.50 - 09/16 [facility] Lvl 1.40 [facility] ELECTROLYTE Glucose Lvl 302 70 - 99 09/16 [facility] 2018 [facility] HEMATOLOGY Platelet 77 133 - 450 09/16 [facility]2018 [facility] HEMATOLOGY MCHC 33.5 32.0 - 09/16 [facility] 36.0 [facility] HEMATOLOGY RDW 14.2 11.5 - 09/16 [facility] 14.5 [facility] HEMATOLOGY MPV 11.1 7.4 - 10.4 09/16 [facility]2018 [facility] HEMATOLOGY MCV 92.4 80.0 - 09/16 [facility] 98.0 [facility] HEMATOLOGY MCH 31.0 27.0 - 09/16 [facility] 31.0 [facility] HEMATOLOGY Hct 41.6 36.0 - 09/16 [facility] [place] 48.0 /2018 [facility] HEMATOLOGY RBC 4.50 4.20 - 09/16 [place] 5.40 /2019 [facility] HEMATOLOGY Hgb 14.0 12.0 - 09/16 [place] 16.0 /2018 [facility] HEMATOLOGY WBC 10.6 3.7 - 10.4 09/16 [facility]2018 [facility] HEMATOLOGY Neutrophils 8.8 1.5 - 8.1 09/[place] # /2019 [facility] HEMATOLOGY Monocytes # 0.7 0.0 - 0.8 09/16 [facility] HEMATOLOGY Basophils 0.3 0.0 - 1.0 09/16 [facility] /2018 [facility] HEMATOLOGY Lymphocytes 1.0 1.0 - 5.5 09/16 [facility] # /2018 [facility] HEMATOLOGY Segs 83.3 45.0 - 09/16 [place] 75.0 /2018 [facility] HEMATOLOGY Lymphocytes 9.9 20.0 - 09/16 [facility] 40.0 [facility] HEMATOLOGY Monocytes 6.5 2.0 - 12.0 09/16 [facility] PARATHYROID Ca Norm WB 1.13 1.05 - 09/16 [place] PROFILE 1. [facility] PARATHYROID Ca Ion WB 1.13 1.05 - 09/16 [facility] PROFILE 1. [facility] URINE AND UA Renal Epi 3 <=0 /LPF 09/15 [facility] STOOL /2018 [facility] URINE AND UA Bacteria Occasional None Seen 09[place]15 [place] /HPF /HPF /2018 [facility] URINE AND UA Mucus Few /LPF None Seen 09/15 [facility] STOOL /LPF /2018 [facility] URINE AND UA Hyal Cast 1 0 - 2 09/15 [facility] STOOL /2018 [facility] URINE AND UA Amorph Occasional None Seen 09[place] /HPF /HPF /2018 [facility] URINE AND UA Protein 30 mg/dL Negative 09/15 [facility] STOOL mg/dL /2018 [facility] URINE AND UA pH 5.5 5.0 - 8.0 09/15 [facility] [facility] /[address] [place] [address] URINE AND UA Glucose 250 Negative 09/15 [facility] STOOL *ABN* /2018 [facility] (09/15/18 5:04 PM) [place] URINE AND UA Ketones Negative Negative 09/15 [facility] STOOL *NA* /2018 [facility] (09/15/18 5:04 PM) [place] URINE AND UA WBC 5 0 - 5 09/15 [facility] STOOL /2018 [facility] URINE AND UA RBC 4 0 - 2 09/15 [facility] STOOL /2018 [facility] URINE AND UA Sq Epi Occasional Few /LPF 09/15 [facility] STOOL /LPF /2018 [facility] URINE AND UA Leuk Est Negative Negative 09/15 [facility] [facility] (09/15/18 5:04 PM) [facility] URINE AND UA Blood Negative Negative 09/15 [facility] [facility] (09/15/18 5:04 PM) [facility] URINE AND UA 0.2 0.1 - 1.0 09/15 [facility] [facility] Urobilinogen /2018 [facility] URINE AND UA Nitrite Negative Negative 09/15 [facility] [facility] (09/15/18 5:04 PM) [facility] URINE AND UA Bili Negative Negative 09/15 [facility] [facility] *NA* /2018 [facility] (09/15/18 5:04 PM) [place] URINE AND UA Spec Grav 1.025 <=1.030 09/15 [facility] [facility] /2018 [facility] URINE AND UA Turbidity Clear Clear 09/15 [facility] [facility] (09/15/18 5:04 PM) [facility] URINE AND UA Color Yellow Yellow 09/15 [facility] [facility] *NA* /2018 [facility] (09/15/18 5:04 PM) [place] IMMUNOLOGY Striated 1:320 Neg:<1:40 09/15 Result [facility] Muscle IgG Comment: Medical Performed At: [facility]
[address], [place] [id number]<br/ >Kosta Tucker MD Ph:[phone] IMMUNOLOGY MuSK Auto Ab <1.0 09/14 Result [facility] Comment: Medical Reference Center Range:
Negative: [...] be useful
to follow treatment.
References:
1. Ryanih-Donn S et al. J Autoimmunity 2014;52:90-10 0.
2. Yeny AVILEZ et al. PNAS 2013;110(81); [id number].< br/>3. Emmanueli E et al. Neurology 2006;67:505-5 07.
This test was developed and its performance characteristi cs
determ ined by [facility]. It has not been cleared or approved
by the Food and Drug Administratio n.
Perfor med At: [facility]
[address] [place], [place] [id number]<br/ >Feliciano Francis MD Ph:[phone] BACTERIAL - MRSA by PCR Negative 09/14 [facility] (09/14/18 11:23 AM) /2018 [facility] IMMUNOLOGY ACHr Binding 1.25 0.00 - 09/14 Result [facility] Ab 0.24 Comment: [facility] Negative: 0.00 - 0.24
Borderline: 0.25 - 0.40
Positive: > 0.40
Perf ormed At: [facility]
[address] [place] [id number]<br/ >Kosta Tucker MD Ph:[phone] IMMUNOLOGY ACHr Block 42 0 - 25 09/14 Result [facility] Ab /2018 Comment: [facility] Negative: 0 - 25
Borderline: 26 - 30
Positive: >30

Results for this test are for research purposes
only by the assay's credit collections specialist. The performance<b r/>characteri stics of this product have not been
esta blished. Results should not be used as a
diagnos tic procedure without confirmation of the
diagn osis by another medically established<b r/>diagnostic product or procedure.&lt ;br/>Performe d At: [facility]
[address], [place] [id number]<br/ >Kosta Tucker MD Ph:[phone] HEMATOLOGY Eosinophils 0.1 0.0 - 0.5 09/13 [facility] # /2018 [facility] HEMATOLOGY Basophils # 0.1 0.0 - 0.2 09/13 [facility] s /2018 [facility] HEMATOLOGY Eosinophils 1.1 0.0 - 4.0 09/13 [facility] s /2018 [facility] HEMATOLOGY Basophils # 0.1 0.0 - 0.2 09/13 [facility] s /2019 [facility] HEMATOLOGY Eosinophils 0.1 0.0 - 0.5 09/13 [facility] # /2018 [facility] HEMATOLOGY Eosinophils 0.9 0.0 - 4.0 09/13 [facility] s /2018 [facility] HEMATOLOGY PB Smear Peripheral 09/12 [facility] Path blood /2018 [facility] smear Center examinatio n; - Platelets are decreased with few giant forms. No platelet clump. - RBCs are normocytic ; no schistocyt e - Leukocytes show unremarkab le morphology ; few reactive lymphocyte s. Clinical correlatio n is suggested. CPT 26713 URINE AND UA Bacteria Occasional None Seen 09[place]12 [place] /HPF /HPF /2018 [facility] URINE AND UA <1.0 0.1 - 1.0 09/12 [facility] STOOL Urobilinogen /2018 [facility] URINE AND UA Ketones Trace Negative 09/12 [facility] STOOL *ABN* [facility] (09/12/18 11:27 AM) Cente r URINE AND UA Blood Small Negative 09/12 [facility] STOOL *ABN* [facility] (09/12/18 11:27 AM) Cente r URINE AND UA Bili Negative Negative 09/12 [facility] STOOL *NA* /2018 Medical (09/12/18 11:27 AM) Cente r URINE AND UA Glucose 150mg/dl 09/12 [facility] STOOL [facility] URINE AND UA Protein 100 mg/dL Negative 09/12 [facility] STOOL mg/dL [facility] URINE AND UA Turbidity Slight Clear 09/12 [facility] STOOL *ABN* Medical (09/12/18 11:27 AM) Cente r URINE AND UA pH 5.0 5.0 - 8.0 09/12 [facility] STOOL [facility] URINE AND UA Spec Grav 1.018 <=1.030 09/12 [facility] [facility] URINE AND UA Color Yellow Yellow 09/12 [facility] STOOL *NA* Medical (09/12/18 11:27 AM) Cente r URINE AND UA Mucus Few /LPF None Seen 09/12 [facility] STOOL /LPF [facility] URINE AND UA Hyal Cast 4 0 - 2 09/12 [facility] STOOL [facility] URINE AND UA WBC 4 0 - 5 09/12 [facility] STOOL [facility] URINE AND UA Nitrite Negative Negative 09/12 [facility] [facility] (09/12/18 11:27 AM) [facility] URINE AND UA RBC 1 0 - 2 09/12 [facility] [facility] URINE AND UA Sq Epi Moderate Few /LPF 09/12 [facility] STOOL /LPF [facility] URINE AND UA Leuk Est Negative Negative 09/12 [facility] [facility] (09/12/18 11:27 AM) [facility] CHEM PANEL Bili Total 0.7 0.2 - 1.3 09/12 [facility] CHEM PANEL Alk Phos 141 39 - 136 09/[address] [place] [address] CHEM PANEL Total 8.3 6.4 - 8.4 09/12 [facility] CHEM PANEL AST 25 0 - 37 09/12 [facility] CHEM PANEL ALT 34 0 - 65 09/12 [facility]2018 [facility] CHEM PANEL Albumin Lvl 2.7 3.5 - 5.0 09/12 [facility] CHEM PANEL Globulin 5.6 2.7 - 4.2 09/12 [facility]2018 [facility] CHEM PANEL B/C Ratio 9 6 - 25 09/12 [facility] CHEM PANEL A/G Ratio 0.5 0.7 - 1.6 09/12 /2018 [facility] HEMATOLOGY PTT 31.6 22.9 - 09/12 [facility] 35.8 /2019 [facility] HEMATOLOGY PT 14.2 12.0 - 09/12 [facility] 14.7 [facility] HEMATOLOGY INR 1.12 0.85 - 09/12 [place] 1.17 /2019 [facility] HEMATOLOGY Eosinophils 2.4 0.0 - 4.0 09/12 [place] [facility] HEMATOLOGY Eosinophils 0.2 0.0 - 0.5 09/12 [place] # /2019 [facility] HEMATOLOGY Basophils # 0.2 0.0 - 0.2 09/12 [facility] s /2018 [facility] IMMUNOLOGY JAK2 (V617F) Comment 09/12 Result [facility] Comment: Medical Review Ana [facility] , PhD
[facility], Molecular Oncology
[facility] Biology [facility] Pathology<br/ >[place] [address]
06-08 [phone]<b r/>Performed At: [facility]
[address] [facility], [place] [id number]< br/>Samara Cordova MD Ph:[phone] IMMUNOLOGY JAK2 (V617F) Comment 09/12 Result [facility] References Comment: Medical
[facility] EJ, Sanchez LM, Javed PJ, et al. Acquired
mutation of the tyrosine kinase JAK2 in human
mye loproliferati ve disorders. Lancet. 2004Aug 17-;<br/ >365(4255):35 54-1067. Ankur Norman, Mj V, [address] HANK. A
unique clonal JAK2 mutation leading to constitutive< br/>signaling causes polycythaemia vera. Nature. 2004Sep 26;
43 6(6647):0280- 5074.
Flora R, Marianne F, Lizbeth , et al. A gain-of-
function mutation of JAK2 in myeloprolifer ative disorders.
N Engl J Med. 2004Sep 26; 352(17):1779- 1790. IMMUNOLOGY JAK2 (V617F) Comment 09/12 Result [facility] Mutation Qnt /2018 Comment: Medical Result NEGATIVE
Center
The JAK2 V617F mutation is not detected in the provided
specimen of this individual. This result does not rule out
the presence of the JAK2 mutation at a level below the
sensi tivity of detection of this assay, or the presence of
other mutations within JAK2 not detected by this assay. IMMUNOLOGY JAK2 (V617F) Comment 09/12 Result [facility] Methodology /2018 Comment: Medical
Total Center genomic DNA was extracted and subjected to TaqMan
re al-time PCR amplification /detection. Two amplification
products per sample were monitored by real-time PCR using
winifred mers/probes specific to JAK2 wild type (WT) and JAK2
muta nt [id number]. The abcdexperts Absolute Quantitation software
will compare the patient [...] 1%. IMMUNOLOGY JAK2 (V617F) Comment 09/12 Result [facility] Comment: Medical
The Center Quantitative Real-Time PCR assay detects V617F mutation
[...] Bili Direct <0.1 0.0 - 0.3 09/[address] CHEM PANEL Bili Unable to 0.0 - 1.0 09/11 [facility] Indirect [address] CHEM PANEL A/G Ratio 0.5 0.7 - 1.6 09/[address] CHEM PANEL ALT 40 0 - 65 09/[address] CHEM PANEL AST 31 0 - 37 09/[address] CHEM PANEL Alk Phos 144 39 - 136 09/[address] CHEM PANEL Bili Total 0.8 0.2 - 1.3 09/[address] CHEM PANEL Total 7.3 6.4 - 8.4 09/[address] CHEM PANEL Albumin Lvl 2.5 3.5 - 5.0 09/[address] CHEM PANEL Globulin 4.8 2.7 - 4.2 09/[address] Culture: 10,000 - 09/10 [facility] Urine 50,000 /2018 [facility] CFU/mL [facility] BLOOD BANK Antibody Negative 09/10 [facility] RESULTS Scrn (09/10/18 5:06 PM) /2018 [facility] BLOOD BANK ABO/Rh O POS 09/[address] CHEM PANEL Alk Phos 166 39 - 136 09/[address] CHEM PANEL Bili Total 0.8 0.2 - 1.3 09/[address] CHEM PANEL ALT 45 0 - 65 09/[address] CHEM PANEL AST 35 0 - 37 09/[address] CHEM PANEL Total 7.1 6.4 - 8.4 09/[address] CHEM PANEL Albumin Lvl 2.9 3.5 - 5.0 09/[address] CHEM PANEL B/C Ratio 11 6 - 25 09/[address] CHEM PANEL A/G Ratio 0.7 0.7 - 1.6 09/[address] CHEM PANEL Globulin 4.2 2.7 - 4.2 09/10 [facility] HEMATOLOGY Heparin Negative 1 Negative 09/10 Result [facility] Ab(SRIDEVI) (09/10/18 5:06 PM) /2018 Comment: [facility] assay detects Center heparin antibodies of IgG isotype. Antibodies of other isotypes have been reported to cause heparin-induc ed thrombocytope davey. Therefore, if there is a strong clinical suspicion of HIT, additional study with a serotonin release assay is recommented. HEMATOLOGY Pat Od Value 0.127 09/10 [facility] HEMATOLOGY Pos CO Value 0.400 09/10 [facility] HEMATOLOGY INR 1.08 0.85 - 09/10 [place] 1.17 [facility] HEMATOLOGY Thrombin 19.1 15.0 - 09/10 [facility] Time 21.2 [facility] HEMATOLOGY D-Dimer 1.22 09/10 [facility] HEMATOLOGY Fibrinogen 548 230 - 510 09/10 [facility] Lvl /2018 [facility] HEMATOLOGY PTT 30.3 22.9 - 09/10 [place] 35.8 [facility] HEMATOLOGY PT 13.8 12.0 - 09/10 [place] 14.7 [facility] IMMUNOLOGY IgA Lvl 615.0 68.0 - 09/10 [place] 378.0 [facility] URINE AND UA Glucose 50mg/dl 09/10 [facility] [facility] URINE AND UA Turbidity Marked Clear 09/10 [facility] STOOL *ABN* [facility] (09/10/18 5:06 PM) [place] URINE AND UA Color Yellow Yellow 09/10 [facility] STOOL *NA* [facility] (09/10/18 5:06 PM) [place] URINE AND UA Protein 30 mg/dL Negative 09/10 [facility] STOOL mg/dL [facility] URINE AND UA pH 6.0 5.0 - 8.0 09/10 [facility] STOOL [facility] URINE AND UA Ketones Trace Negative 09/10 [facility] STOOL *ABN* [facility] (09/10/18 5:06 PM) Center URINE AND UA Bili Negative Negative 09/10 [facility] STOOL *NA* [facility] (09/10/18 5:06 PM) Center URINE AND UA Leuk Est Trace Negative 09/10 [facility] STOOL *ABN* [facility] (09/10/18 5:06 PM) Center URINE AND UA <1.0 0.1 - 1.0 09/10 [facility] STOOL Urobilinogen /2018 [facility] URINE AND UA Blood Small Negative 09/10 [facility] STOOL *ABN* /2018 [facility] (09/10/18 5:06 PM) [place] URINE AND UA Nitrite Negative Negative 09/10 [facility] [facility] (09/10/18 5:06 PM) [facility] URINE AND UA Spec Grav 1.012 <=1.030 09/[address] URINE AND UA WBC 19 0 - 5 09/[address] URINE AND UA Sq Epi Few /LPF Few /LPF 09/[address] URINE AND UA RBC 1 0 - 2 09/[address] URINE AND UA Mucus Few /LPF None Seen 09/10 [facility] STOOL /LPF [facility] HEMATOLOGY Bands 0.0 0.0 - 11.0 09/[address] HEMATOLOGY Large Plt Slight 09/[address] HEMATOLOGY Atypical 0.0 <=0.0 % 09/10 [facility] Lymphs [facility] IMMUNOLOGY Striated 1:320 Neg:<1:40 09/10 Result [facility] Muscle IgG Comment: Medical Performed At: Center [facility]
[address], [place] [id number]<br/ >Kosta Tucker MD Ph:[phone] IMMUNOLOGY IgA Lvl 592.0 68.0 - 09/10 [place] 378.0 [facility] HEMATOLOGY Sed Rate 20 0 - 20 09/09 [facility] IMMUNOLOGY C-REACTIVE 5.2 <=2.9 mg/L 09/09 PROTEIN /2018 [facility] HEMATOLOGY PTT 32.0 22.9 - 04 35.8 /2019 [facility] HEMATOLOGY PT 13.5 12.0 - 09/08 14.7 /2019 [facility] HEMATOLOGY INR 1.05 0.85 - 09/08 1.17 /2018 [facility] ELECTROLYTE AGAP 15.8 10.0 - 09/08 S 20.0 /2018 [facility] ELECTROLYTE B/C Ratio 16 6 - 25 09/08 S [facility] ELECTROLYTE Globulin 4.2 2.7 - 4.2 09/08 S [facility] ELECTROLYTE A/G Ratio 0.7 0.7 - 1.6 09/08 S [facility] ELECTROLYTE Sodium Lvl 147 135 - 145 09/08 S [facility] ELECTROLYTE Potassium 3.8 3.5 - 5.1 10 [facility] S Lvl /2018 [facility] ELECTROLYTE Chloride Lvl 107 95 - 109 09/08 S [facility] ELECTROLYTE BUN 21 7 - 22 09/08 S [facility] ELECTROLYTE Glucose Lvl 144 70 - 99 09/08 S [facility] ELECTROLYTE Albumin Lvl 2.9 3.5 - 5.0 09/08 S [facility] ELECTROLYTE CO2 28 24 - 32 09/08 S [facility] ELECTROLYTE eGFR 40 09/08 [place] [facility] Comment: The [facility] eGFR is City calculated using the [...] AST 137 0 - 37 09/08 S [facility] ELECTROLYTE ALT 67 0 - 65 09/08 [facility] ELECTROLYTE Creatinine 1.33 0.50 - 04 S Lvl 1.40 /2018 [facility] ELECTROLYTE Bili Total 1.3 0.2 - 1.3 09/08 S [facility] ELECTROLYTE Total 7.1 6.4 - 8.4 10 [facility] S Protein /2018 [facility] ELECTROLYTE Alk Phos 195 39 - 136 09/08 S [facility] ELECTROLYTE Calcium Lvl 9.3 8.5 - 10.5 09/08 S [facility] HEMATOLOGY Basophils # 0.1 0.0 - 0.2 09/08 [facility] HEMATOLOGY Neutrophils 2.5 1.5 - 8.1 09/08 [facility] # /2019 [facility] HEMATOLOGY Eosinophils 0.2 0.0 - 0.5 09/08 # /2019 [facility] HEMATOLOGY Monocytes # 0.7 0.0 - 0.8 09/08 [facility] HEMATOLOGY Lymphocytes 3.3 1.0 - 5.5 09/08 # /2018 [facility] HEMATOLOGY Monocytes 9.8 2.0 - 12.0 09/08 [facility] HEMATOLOGY Eosinophils 2.5 0.0 - 4.0 09/08 [facility] HEMATOLOGY Basophils 2.0 0.0 - 1.0 09/08 [facility] HEMATOLOGY Lymphocytes 48.8 20.0 - 09/08 40.0 [facility] HEMATOLOGY Segs 36.9 45.0 - 09/08 75.0 [facility] HEMATOLOGY MPV 11.3 7.4 - 10.4 09/08 [facility] HEMATOLOGY MCH 30.3 27.0 - 09/08 31.0 [facility] HEMATOLOGY Platelet 125 133 - 450 09/08 [facility] HEMATOLOGY RDW 13.9 11.5 - 09/08 14.5 [facility] HEMATOLOGY MCV 92.9 80.0 - 09/08 98.0 [facility] HEMATOLOGY MCHC 32.6 32.0 - 09/08 36.0 [facility] HEMATOLOGY WBC 6.8 3.7 - 10.4 09/08 [facility] HEMATOLOGY RBC 5.13 4.20 - 09/08 5.40 [facility] HEMATOLOGY Hgb 15.5 12.0 - 09/08 16.0 [facility] HEMATOLOGY Hct 47.7 36.0 - 09/08 48.0 [facility] LIPIDS VLDL 24 09/08 [facility] LIPIDS LDL 45 <=99 mg/dL 09/08 (Calculated) [facility] LIPIDS CHD Risk 2.82 3.90 - 09/08 5.80 [facility] LIPIDS HDL 38 >=61 mg/dL 09/08 [facility] LIPIDS Trig 118 <=149 09/08 mg/dL [facility] LIPIDS Chol 107 <=199 09/08 mg/dL [facility] SPECIAL Hgb A1C 12.2 <=5.6 % 09/08 CHEMISTRY /2019 [facility] HEMATOLOGY MPV 9.7 7.4 - 10.4 08/19 [facility] HEMATOLOGY Platelet 163 133 - 450 08/19 [facility] HEMATOLOGY RDW 13.7 11.5 - 08/19 [facility] 14.5 [facility] HEMATOLOGY Hgb 17.8 12.0 - 08/19 [facility] 16.0 [facility] HEMATOLOGY Hct 52.9 36.0 - 08/19 [facility] 48.0 [facility] HEMATOLOGY MCV 92.3 80.0 - 08/19 [facility] 98.0 [facility] HEMATOLOGY RBC 5.73 4.20 - 08/19 [facility] 5.40 /2018 [facility] HEMATOLOGY WBC 8.5 3.7 - 10.4 08/19 [facility] HEMATOLOGY MCHC 33.6 32.0 - 08/19 [facility] 36.0 [facility] HEMATOLOGY MCH 31.0 27.0 - 08/19 [facility] 31.0 [facility] CARDIAC BNP 98 <=100 08/19 [facility] ENZYMES pg/mL [facility] CHEM PANEL Phosphorus 3.4 2.5 - 4.5 08/19 [facility] CHEM PANEL Magnesium 1.9 1.8 - 2.4 08/19 [facility] Lvl [facility] CHEM PANEL eGFR 62 08/19 [facility] Comment: The Medical eGFR is Center calculated [...] Calcium Lvl 8.8 8.5 - 10.5 08/19 [facility] CHEM PANEL CO2 23 24 - 32 08/19 [facility] CHEM PANEL Chloride Lvl 106 95 - 109 08/19 [facility] CHEM PANEL Potassium 4.6 3.5 - 5.1 08/19 Result [facility] Comment: [facility] Moderately Hemolyzed. CHEM PANEL Creatinine 0.94 0.50 - 08/19 [place] Lvl 1.40 [facility] CHEM PANEL Sodium Lvl 138 135 - 145 08/19 [facility] CHEM PANEL BUN 13 7 - 22 08/19 [facility] CHEM PANEL Glucose Lvl 160 70 - 99 08/19 [facility] CHEM PANEL AGAP 13.6 10.0 - 08/19 [place] 20.0 [facility] HEMATOLOGY Eosinophils 0.2 0.0 - 0.5 08/19 [facility] HEMATOLOGY Basophils # 0.1 0.0 - 0.2 08/19 [facility] HEMATOLOGY Segs 47.9 45.0 - 08/19 [place] 75.0 [facility] HEMATOLOGY Lymphocytes 40.1 20.0 - 08/19 [place] 40.0 [facility] HEMATOLOGY Lymphocytes 3.9 1.0 - 5.5 08/19 [facility] HEMATOLOGY Monocytes # 0.9 0.0 - 0.8 08/19 [facility] HEMATOLOGY Monocytes 8.8 2.0 - 12.0 08/19 [facility] HEMATOLOGY Basophils 1.2 0.0 - 1.0 08/19 [facility] HEMATOLOGY Eosinophils 2.0 0.0 - 4.0 08/19 [facility] HEMATOLOGY Neutrophils 4.7 1.5 - 8.1 08/19 [facility] HEMATOLOGY INR 1.09 0.85 - 08/19 [place] 1.17 [facility] HEMATOLOGY PT 13.9 12.0 - 08/19 [place] 14.7 [facility] HEMATOLOGY PTT 31.0 22.9 - 08/19 [place] 35.8 /2019 [facility] HEMATOLOGY MCV 93.0 80.0 - 08/19 [place] 98.0 2019 [facility] HEMATOLOGY MCH 31.1 27.0 - 08/19 [facility] 31.0 [facility] HEMATOLOGY RDW 13.7 11.5 - 08/19 [facility] 14.5 [facility] HEMATOLOGY MCHC 33.4 32.0 - 08/19 [facility] 36.0 [facility] HEMATOLOGY Platelet 77 133 - 450 08/19 [facility]2018 [facility] HEMATOLOGY MPV 9.9 7.4 - 10.4 08/19 [facility]2018 [facility] HEMATOLOGY Hct 49.7 36.0 - 08/19 [facility] 48.0 [facility] HEMATOLOGY Hgb 16.6 12.0 - 08/19 [facility] 16.0 [facility] HEMATOLOGY RBC 5.35 4.20 - 08/19 [facility] 5.40 /2018 [facility] HEMATOLOGY WBC 9.7 3.7 - 10.4 08/19 [facility]2018 [facility] PARATHYROID Ca Ion WB 1.02 1.05 - 08/19 [facility] PROFILE . [facility] PARATHYROID Ca Norm WB 0.98 1.05 - 08/19 [facility] PROFILE . [facility] URINE AND Occult Bld Negative Negative 08/19 [facility] STOOL Stl (08/19/18 4:40 AM) [facility] Culture: Normal Enteric Era Isolated 08/19 [facility] Stool No Salmonella Or Shigella Isolated [facility] CHEM PANEL Alk Phos 132 39 - 136 08/[address] CHEM PANEL A/G Ratio 0.6 0.7 - 1.6 08/[address] CHEM PANEL ALT 30 0 - 65 08/[address] CHEM PANEL Total 6.9 6.4 - 8.4 08/18 [facility] Protein [facility] CHEM PANEL Albumin Lvl 2.6 3.5 - 5.0 08/18 [facility]2018 [facility] CHEM PANEL Globulin 4.3 2.7 - 4.2 08/[address] CHEM PANEL Bili Direct <0.1 0.0 - 0.3 08/[address] CHEM PANEL Bili Total 0.5 0.2 - 1.3 08/[address] CHEM PANEL Bili >0.4 0.0 - 1.0 08/18 [facility] [address] [place] [address] CHEM PANEL AST 21 0 - 37 08/[address] CHEM PANEL Calcium Lvl 8.5 8.5 - 10.5 08/18 [facility] CHEM PANEL eGFR 71 08/18 Result Comment: The Medical eGFR is Center [...] PANEL BUN 13 7 - 22 08/18 [facility] CHEM PANEL Glucose Lvl 162 70 - 99 08/18 [facility] CHEM PANEL CO2 27 24 - 32 08/18 2018 [facility] CHEM PANEL Potassium 3.6 3.5 - 5.1 08/18 [facility] CHEM PANEL Sodium Lvl 142 135 - 145 08/18 [facility]2018 [facility] CHEM PANEL Chloride Lvl 108 95 - 109 08/18 [facility] CHEM PANEL Creatinine 0.83 0.50 - 08/18 [facility] CHEM PANEL AGAP 10.6 10.0 - 08/18 [place] 20.0 [facility] CHEM PANEL Magnesium 1.8 1.8 - 2.4 08/18 [facility] CHEM PANEL Phosphorus 3.6 2.5 - 4.5 08/18 [facility]2018 [facility] HEMATOLOGY Neutrophils 3.9 1.5 - 8.1 08[place] [facility] HEMATOLOGY Eosinophils 2.5 0.0 - 4.0 08/[place] [facility] HEMATOLOGY Basophils 1.9 0.0 - 1.0 08/18 [facility] HEMATOLOGY Monocytes # 0.6 0.0 - 0.8 08[place] [facility] HEMATOLOGY Lymphocytes 3.8 1.0 - 5.5 08/18 [place] # [facility] HEMATOLOGY Eosinophils 0.2 0.0 - 0.5 08/18 [place] # [facility] HEMATOLOGY Basophils # 0.2 0.0 - 0.2 08/18 [place] /2018 [facility] HEMATOLOGY Lymphocytes 44.0 20.0 - 08/18 [place] 40.0 2019 [facility] HEMATOLOGY Segs 45.3 45.0 - 08/18 [place] 75.0 2019 [facility] HEMATOLOGY Monocytes 6.3 2.0 - 12.0 08/18 [facility] HEMATOLOGY Hct 49.2 36.0 - 08/18 [place] 48.0 2019 [facility] HEMATOLOGY Hgb 17.0 12.0 - 08/18 [place] 16.0 [facility] HEMATOLOGY RBC 5.30 4.20 - 08/18 [place] 5.40 /2019 [facility] HEMATOLOGY WBC 8.7 3.7 - 10.4 08/18 [facility] HEMATOLOGY MCV 92.8 80.0 - 08/18 [place] 98.0 [facility] HEMATOLOGY MPV 9.7 7.4 - 10.4 08/18 [facility] HEMATOLOGY RDW 13.6 11.5 - 08/18 [place] 14.5 [facility] HEMATOLOGY Platelet 161 133 - 450 08/18 /2018 [facility] HEMATOLOGY MCHC 34.6 32.0 - 08/18 [place] 36.0 2019 [facility] HEMATOLOGY MCH 32.1 27.0 - 08/18 [place] 31.0 2019 [facility] PARATHYROID Ca Norm WB 1.05 1.05 - 08/18 [place] PROFILE 1. [facility] PARATHYROID Ca Ion WB 1.06 1.05 - 08/18 [place] PROFILE 1. [facility] HEMATOLOGY Monocytes # 0.9 0.0 - 0.8 08/[place] [facility] HEMATOLOGY Eosinophils 0.2 0.0 - 0.5 08/17 [place] 2019 [facility] HEMATOLOGY Lymphocytes 5.1 1.0 - 5.5 08/17 [place] [facility] HEMATOLOGY Basophils # 0.1 0.0 - 0.2 08/17 [facility] HEMATOLOGY Monocytes 7.6 2.0 - 12.0 08/17 [facility] HEMATOLOGY Segs 44.9 45.0 - 08/17 [facility] 75.0 [facility] HEMATOLOGY Lymphocytes 44.2 20.0 - 08/17 [facility] 40.0 [facility] HEMATOLOGY Basophils 1.3 0.0 - 1.0 08/17 [facility] HEMATOLOGY Eosinophils 2.0 0.0 - 4.0 08/17 [facility] s [facility] HEMATOLOGY Neutrophils 5.2 1.5 - 8.1 08/17 [facility] # [facility] ELECTROLYTE AGAP 11.9 10.0 - 08/16 [facility] S 20.0 [facility] ELECTROLYTE eGFR 64 08/16 Result [facility] Comment: The Medical eGFR is Center [...] Sodium Lvl 142 135 - 145 08/16 [facility] [place] [facility] S [facility] ELECTROLYTE Potassium 3.9 3.5 - 5.1 08/16 [facility] Lvl [facility] ELECTROLYTE Chloride Lvl 104 95 - 109 08/16 [facility] ELECTROLYTE CO2 30 24 - 32 08/[address] ELECTROLYTE Calcium Lvl 9.6 8.5 - 10.5 08[place]16 [place] [facility] ELECTROLYTE BUN 16 7 - 22 08/16 [facility]2018 [facility] Center ELECTROLYTE Glucose Lvl 121 70 - 99 08/16 [facility] S /2018 Medical Center ELECTROLYTE Creatinine 0.91 0.50 - 08/16 [facility] S Lvl 1.40 /2018 Medical Center HEMATOLOGY RBC Morph Normal 08/16 [facility] (08/16/18 3:35 PM) /2018 [facility] HEMATOLOGY Plt Morph Normal 08/16 [facility] (08/16/18 3:35 PM) /2018 [facility] HEMATOLOGY PTT 32.0 22.9 - 08/16 [facility] 35.8 /2019 [facility] HEMATOLOGY PT 12.6 12.0 - 08/16 [facility] 14.7 /2018 [facility] HEMATOLOGY INR 0.96 0.85 - 08/16 [facility] 1.17 Medical Center BEDSIDE Gluc POC 148.0 65 - 110 03/25 [place] <sup>1</sup>I [facility] GLUCOSE [facility] nterpretive Medical TESTING Data: [place] Upper Reportable Limit: 200 mg/dL. BEDSIDE Comment1 Notify 03/25 NA [facility] GLUCOSE RN/ Medical TESTING Center BEDSIDE Comment1 Notify 03/25 [facility] GLUCOSE RN/ Medical TESTING Center BEDSIDE Gluc POC 140.0 65 - 110 03/25 [place] <sup>2</sup>I [facility] TESTING Data: [place] Reportable Limit: 200 mg/dL. BEDSIDE Comment1 Notify 03/25 NA [facility] GLUCOSE RN/ [facility] TESTING Center BEDSIDE Gluc POC 137.0 65 - 110 03/25 [place] <sup>3</sup>I [facility] TESTING Data: [place] Reportable Limit: 200 mg/dL. CHEMISTRY Globulin 3.3 2.0 - 4.0 03/25 Normal [facility] Center CHEMISTRY Total 5.4 6.4 - 8.4 03/25 LOW Protein [facility] Center CHEMISTRY Albumin Lvl 2.1 3.5 - 5.0 03/25 LOW [facility] Center CHEMISTRY ALT 131.0 0 - 65 03/25 [facility] CHEMISTRY Alk Phos 360.0 39 - 136 03/25 HI [facility] Center CHEMISTRY A/G Ratio 0.6 0.7 - 1.6 03/25 LOW [facility] Center CHEMISTRY AST 144.0 0 - 37 10/25 [facility] Medical Center CHEMISTRY Bili 0.2 0.0 - 1.0 03/25 Normal [place] [facility] CHEMISTRY Bili Total 0.3 0.2 - 1.3 03/25 Normal Medical Center CHEMISTRY Bili Direct 0.1 0.0 - 0.3 03/25 Normal [facility] CHEMISTRY Magnesium 2.4 1.8 - 2.4 03/25 Normal Medical [facility] CHEMISTRY Potassium 4.1 3.5 - 5.1 03/25 Normal l Medical Center CHEMISTRY Chloride Lvl 107.0 95 - 109 03/25 Normal Medical [facility] CHEMISTRY Sodium Lvl 140.0 135 - 145 03/25 Normal Medical [facility] CHEMISTRY Calcium Lvl 8.0 8.5 - 10.5 03/25 LOW Medical Center CHEMISTRY CO2 19.0 24 - 32 03/25 LOW Medical [facility] CHEMISTRY Glucose Lvl 104.0 03/25 NA <sup>4</sup>I T ex nterpretive Medical Data: Center Reference Ranges : 0 - 7 days : 41 - 90 mg/dL 7 days - 150 yrs : 70 - 99 mg/dL (fasting), based on the clinical recommendatio ns of the [employer]. CHEMISTRY BUN 21.0 7 - 22 03/25 Normal [facility] Center CHEMISTRY Creatinine 1.7 0.5 - 1.4 03/25 [facility] Medical Center CHEMISTRY AGAP 18.1 10.0 - 03/25 [facility] [place] 20.0 Medical Center HEMATOLOGY Monocytes # 0.9 0.0 - 0.8 03/25 [facility] [place] [facility] HEMATOLOGY Basophils # 0.1 0.0 - 0.2 03/25 [facility] [place] [facility] HEMATOLOGY Eosinophils 16.0 0.0 - 4.0 03/25 [facility] HEMATOLOGY Monocytes 9.1 2.0 - 12.0 03/25 [facility] Center HEMATOLOGY Basophils 1.5 0.0 - 1.0 03/25 [facility] Center HEMATOLOGY Segs-Bands # 4.3 1.5 - 8.1 03/25 [facility] HEMATOLOGY Lymphocytes 3.2 1.0 - 5.5 03/25 [place] /2010 [facility] HEMATOLOGY Eosinophils 1.6 0.0 - 0.5 03/25 [place] # /2010 [facility] HEMATOLOGY Lymphocytes 31.4 20.0 - 03/25 Normal [place] 40.0 /2010 Medical Center HEMATOLOGY Segs 42.0 45.0 - 03/25 LOW [place] 75.0 /2010 Medical Center HEMATOLOGY RDW 15.0 11.5 - 03/25 HI [place] 14.5 /2010 Medical Center HEMATOLOGY MCHC 33.9 32.0 - 03/25 Normal [place] 36.0 /2010 Medical Center HEMATOLOGY MCH 31.0 27.0 - 03/25 Normal [place] 31.0 /2010 Medical Center HEMATOLOGY MCV 91.4 81.0 - 03/25 Normal [place] 99.0 /2010 Medical Center HEMATOLOGY Hct 36.8 36.0 - 03/25 Normal [place] 48.0 /2010 Medical Center HEMATOLOGY Hgb 12.5 12.0 - 03/25 Normal [place] 16.0 Medical Center HEMATOLOGY MPV 10.0 7.4 - 10.4 03/25 Normal Medical Center HEMATOLOGY Platelet 157.0 133 - 450 03/25 Normal Medical Center HEMATOLOGY RBC 4.03 4.20 - 03/25 LOW [place] 5.40 /2010 Medical Center HEMATOLOGY WBC 10.1 3.7 - 10.4 03/25 Normal [facility] Center CHEMISTRY A/G Ratio 0.7 0.7 - 1.6 03/24 Normal [facility] Center CHEMISTRY Bili 0.2 0.0 - 1.0 03/24 Normal [place] [facility] CHEMISTRY Globulin 3.2 2.0 - 4.0 03/24 Normal Medical Center CHEMISTRY Total 5.6 6.4 - 8.4 03/24 LOW Medical Center CHEMISTRY Albumin Lvl 2.4 3.5 - 5.0 03/24 LOW Medical [facility] CHEMISTRY Bili Direct 0.2 0.0 - 0.3 03/24 Normal Medical Center CHEMISTRY AST 345.0 0 - 37 03/24 [place] [facility] CHEMISTRY Alk Phos 469.0 39 - 136 03/24 [facility] Center CHEMISTRY Bili Total 0.4 0.2 - 1.3 03/24 Normal Medical Center CHEMISTRY ALT 192.0 0 - 65 03/24 [facility] Center CHEMISTRY Magnesium 1.6 1.8 - 2.4 03/24 [facility] CHEMISTRY AGAP 15.6 10.0 - 03/24 [facility] [place] 20.0 Medical Center CHEMISTRY CO2 21.0 24 - 32 03/24 [facility] Medical Center CHEMISTRY Potassium 3.6 3.5 - 5.1 03/24 Normal [facility] Center CHEMISTRY Chloride Lvl 109.0 95 - 109 03/24 [facility] Center CHEMISTRY Calcium Lvl 7.7 8.5 - 10.5 03/24 [facility] CHEMISTRY Sodium Lvl 142.0 135 - 145 03/24 [facility] CHEMISTRY BUN 23.0 7 - 22 03/24 [facility] CHEMISTRY Creatinine 1.7 0.5 - 1.4 03/24 [facility] CHEMISTRY Glucose Lvl 119.0 03/24 NA <sup>5</sup>I T ex nterpretive Medical Data: Center Reference Ranges : 0 - 7 days : 41 - 90 mg/dL 7 days - 150 yrs : 70 - 99 mg/dL (fasting), based on the clinical recommendatio ns of the [employer]. HEMATOLOGY PT 14.8 12.0 - 03/24 [facility] 14.7 [facility] HEMATOLOGY INR 1.16 0.85 - 03/24 Normal <sup>7[place]sup[place] 1.[place] nterpretive Medical Data: Center RECOMMENDED RANGES FOR PROTIME INR: 2.0-3.0 for most medical and surgical thromboemboli c states. 2.5-3.5 for artificial heart valves and recurrent embolism. INR SHOULD BE USED ONLY FOR PATIENTS ON STABLE ANTICOAGULANT THERAPY. HEMATOLOGY PTT 34.9 22.9 - 03/24 Normal <sup>8</sup>[place] 35.8 nterpretive Medical Data: Heparin Center Therapeutic Range: 57 - 92 Seconds HEMATOLOGY Basophils # 0.1 0.0 - 0.2 03/24 [place] [facility] HEMATOLOGY Segs-Bands # 4.1 1.5 - 8.1 03/24 Normal [facility] HEMATOLOGY Lymphocytes 2.8 1.0 - 5.5 03/24 [place] # /2010 [facility] Center HEMATOLOGY Monocytes # 0.8 0.0 - 0.8 03/24 [place] [facility] HEMATOLOGY Eosinophils 1.8 0.0 - 0.5 03/24 [place] # /2010 [facility] HEMATOLOGY Lymphocytes 28.5 20.0 - 03/24 Normal [place] 40.0 Medical Center HEMATOLOGY Monocytes 8.6 2.0 - 12.0 03/24 Normal [facility] HEMATOLOGY Eosinophils 19.0 0.0 - 4.0 03/24 [place] [facility] [place] HEMATOLOGY Basophils 1.3 0.0 - 1.0 03/24 HI [facility] Center HEMATOLOGY Segs 42.6 45.0 - 03/24 LOW [place] 75.0 Medical Center HEMATOLOGY WBC 9.7 3.7 - 10.4 03/24 Normal [facility] Center HEMATOLOGY RBC 3.67 4.20 - 03/24 LOW [place] 5.40 /2010 Medical Center HEMATOLOGY MCHC 34.9 32.0 - 03/24 Normal [place] 36.0 Medical Center HEMATOLOGY RDW 15.1 11.5 - 03/24 HI [place] 14.5 Medical Center HEMATOLOGY Platelet 169.0 133 - 450 03/24 Normal [facility] Center HEMATOLOGY MCV 90.5 81.0 - 03/24 Normal [place] 99.0 Medical Center HEMATOLOGY MCH 31.6 27.0 - 03/24 HI [place] 31.0 Medical Center HEMATOLOGY MPV 9.5 7.4 - 10.4 03/24 Normal [facility] Center HEMATOLOGY Hgb 11.6 12.0 - 03/24 LOW [place] 16.0 Medical Center HEMATOLOGY Hct 33.2 36.0 - 03/24 LOW [place] 48.0 [facility] Center IMMUNOLOGY Hep Bs Ag Negative >Negative 03/24 NA [place] *NA* /2010 Medical (03/24/2011 05:08:00) ?? Center CHEMISTRY Amylase Lvl 36.0 25 - 115 03/23 Normal [facility] Center CHEMISTRY Lipase Lvl 242.0 73 - 393 03/23 Normal Medical Center CHEMISTRY Glucose Lvl 97.0 03/23 NA <sup>6</sup>I T ex nterpretive Medical Data: Center Reference Ranges : 0 - 7 days : 41 - 90 mg/dL 7 days - 150 yrs : 70 - 99 mg/dL (fasting), based on the clinical recommendatio ns of the [employer]. CHEMISTRY BUN 22.0 7 - 22 03/23 Normal Medical Center CHEMISTRY Creatinine 1.5 0.5 - 1.4 03/23 [facility] Medical Center CHEMISTRY CO2 20.0 24 - 32 03/23 [facility] Medical Center CHEMISTRY Sodium Lvl 144.0 135 - 145 03/23 [facility] Center CHEMISTRY Calcium Lvl 7.8 8.5 - 10.5 03/23 [facility] [place] [facility] [place] CHEMISTRY Chloride Lvl 108.0 95 - 109 03/23 [facility] CHEMISTRY Total 4.7 6.4 - 8.4 03/23 [facility] Protein [facility] CHEMISTRY AGAP 19.2 10.0 - 03/23 [facility] [place] 20.0 Medical Center CHEMISTRY Globulin 2.8 2.0 - 4.0 03/23 [facility] Center CHEMISTRY Albumin Lvl 1.9 3.5 - 5.0 03/23 [facility] CHEMISTRY ALT 194.0 0 - 65 03/23 [facility] CHEMISTRY A/G Ratio 0.7 0.7 - 1.6 03/23 [facility] Center CHEMISTRY B/C Ratio 15.0 6 - 25 03/23 [facility] Center CHEMISTRY Bili Total 1.0 0.2 - 1.3 03/23 [facility] Center CHEMISTRY AST 789.0 0 - 37 03/23 [facility] Center CHEMISTRY Alk Phos 289.0 39 - 136 03/23 [facility] CHEMISTRY Potassium 3.2 3.5 - 5.1 03/23 [facility] HEMATOLOGY RDW 14.8 11.5 - 03/23 [facility] [place] 14.5 [facility] Center HEMATOLOGY MPV 9.8 7.4 - 10.4 03/23 [facility] Center HEMATOLOGY Platelet 189.0 133 - 450 03/23 Normal [place] /2010 Medical Center HEMATOLOGY MCH 31.0 27.0 - 03/23 Normal [place] 31.0 Medical Center HEMATOLOGY MCHC 34.1 32.0 - 03/23 Normal [place] 36.0 /2010 Medical Center HEMATOLOGY Hct 32.7 36.0 - 03/23 LOW [place] 48.0 /2010 Medical Center HEMATOLOGY MCV 91.0 81.0 - 03/23 Normal [place] 99.0 Medical Center HEMATOLOGY Hgb 11.2 12.0 - 03/23 LOW [place] 16.0 /2010 Medical Center HEMATOLOGY WBC 6.7 3.7 - 10.4 03/23 Normal [place] [facility] HEMATOLOGY RBC 3.6 4.20 - 03/23 LOW [place] 5.40 Medical Center HEMATOLOGY Large Plt Slight >None Seen 03/23 ABN [place] *ABN* Medical (03/23/2011 05:24:00) ?? Center HEMATOLOGY Lymphocytes 2.1 1.0 - 5.5 03/23 [place] # [facility] [place] HEMATOLOGY Segs-Bands # 2.7 1.5 - 8.1 03/23 [facility] [place] [facility] HEMATOLOGY Monocytes # 0.9 0.0 - 0.8 03/23 [facility] [place] [facility] HEMATOLOGY Plt Morph Normal 03/23 Normal [place] (03/23/2011 05:24:00) ?? Medical Center HEMATOLOGY Eosinophils 15.0 0.0 - 4.0 03/23 [facility] [place] [facility] HEMATOLOGY Atypical 0.0 <<=0.0 03/23 Normal [place] [facility] HEMATOLOGY Bands 1.0 0.0 - 11.0 03/23 Normal [place] [facility] HEMATOLOGY Basophils 1.0 0.0 - 1.0 03/23 Normal [place] [facility] HEMATOLOGY Eosinophils 1.0 0.0 - 0.5 03/23 [facility] [place] # [facility] HEMATOLOGY Lymphocytes 31.0 20.0 - 03/23 Normal [place] 40.0 Medical Center HEMATOLOGY Monocytes 13.0 2.0 - 12.0 03/23 [facility] [place] [facility] HEMATOLOGY Segs 39.0 45.0 - 03/23 LOW [place] 75.0 Medical Center HEMATOLOGY Basophils # 0.1 0.0 - 0.2 03/23 [place] [facility] IMMUNOLOGY Prealbumin 10.0 18.0 - 03/23 LOW [place] 45.0 Medical Center URINALYSIS UA ?? 0.1 - 1.0 03/22 NA [facility] Urobilinogen [facility] URINALYSIS UA Hyal Cast 3.0 0 - 2 03/22 [facility] URINALYSIS UA Amorph Occasional /HPF >None Seen 03/22 NA [facility] Jagr[place] *NA* Medical (03/22/2011 17:20:00) ?? Center URINALYSIS UA Mucus Few /LPF >None Seen 03/22 NA [facility] *NA* Medical (03/22/2011 17:20:00) ?? Center URINALYSIS UA Sq Epi Few /LPF >Few 03/22 NA [facility] *NA* Medical (03/22/2011 17:20:00) ?? Center URINALYSIS UA RBC <1.0 0 - 2 03/22 Normal Medical Center URINALYSIS UA Nitrite Negative >Negative 03/22 Normal [place] (03/22/2011 17:20:00) ?? Medical Center URINALYSIS UA Leuk Est Negative >Negative 03/22 Normal [place] (03/22/2011 17:20:00) ?? Medical Center URINALYSIS UA Protein 200 mg/dL >Negative 03/22 ABN [place] *ABN Medical (03/22/2011 17:20:00) ?? Center URINALYSIS UA Ketones 10 mg/dL >Negative 03/22 [facility]N [place] *ABN* Medical (03/22/2011 17:20:00) ?? Center URINALYSIS UA Bili Negative >Negative 03/22 NA [facility] *NA* Medical (03/22/2011 17:20:00) ?? Center URINALYSIS UA Blood Moderate >Negative 03/22 ABN [facility] *ABN* Medical (03/22/2011 17:20:00) ?? Center URINALYSIS UA Glucose Negative mg/dL >Negative 03/22 NA [facility] [place] *NA* Medical (03/22/2011 17:20:00) ?? Center URINALYSIS UA Spec Grav 1.016 <<=1.030 03/22 [place] [facility] URINALYSIS UA pH 5.5 5.0 - 8.0 03/22 Normal [place] [facility] URINALYSIS UA Color Yellow >Yellow 03/22 NA [place] *NA* /2010 Medical (03/22/2011 17:20:00) ?? Center URINALYSIS UA Turbidity Slight >Clear 03/22 ABN [place] *ABN* Medical (03/22/2011 17:20:00) ?? Center CHEMISTRY Bili 0.2 0.0 - 1.0 03/22 Normal [place] [facility] CHEMISTRY Bili Direct 0.1 0.0 - 0.3 03/22 Normal [place] [facility] IMMUNOLOGY Hep A IgM Negative >Negative 03/22 NA [place] *NA* Medical (03/22/2011 09:40:00) ?? Center IMMUNOLOGY Hep B Core Negative >Negative 03/22 NA [facility] IgM *NA* Medical (03/22/2011 09:40:00) ?? Center IMMUNOLOGY Hep C Ab Negative >Negative 03/22 NA [place] *NA* Medical (03/22/2011 09:40:00) ?? Center IMMUNOLOGY Hep Bs Ag See Note 9 >Negative 03/22 Normal <sup>9</sup>R [facility] (03/22/2011 09:40:00) ?? esult Medical Comment: [facility] Center Talked to Nyasia Mcdaniels Nurse will recollect in the morning 03/23/2011 16:39 RG CHEMISTRY T4 Free 1.67 0.76 - 03/22 HI [place] 1.46 Medical Center CHEMISTRY TSH 0.044 0.360 - 03/22 LOW [facility] 3.740 /2010 Medical Center BEDSIDE Comment1 Sliding 03/15 NA [facility] GLUCOSE Scale Medical TESTING Center BEDSIDE Gluc POC 152.0 65 - 110 03/15 [place] <sup>1</sup>I [facility] GLUCOSE [facility] nterpretive Medical TESTING Data: Center Upper Reportable Limit: 200 mg/dL. BEDSIDE Comment1 Notify 03/15 NA [facility] GLUCOSE RN/MD Medical TESTING Center BEDSIDE Gluc POC 116.0 65 - 110 03/15 [place] <sup>2</sup>I [facility] GLUCOSE [facility] nterpretive Medical TESTING Data: Center Upper Reportable Limit: 200 mg/dL. CHEMISTRY AGAP 18.5 10.0 - 03/15 Normal [place] 20.0 [facility] Center CHEMISTRY Potassium 3.5 3.5 - 5.1 03/15 Normal [facility] Lvl Medical Center CHEMISTRY CO2 21.0 24 - 32 03/15 LOW Medical Center CHEMISTRY Sodium Lvl 147.0 135 - 145 03/15 [facility] Medical Center CHEMISTRY Creatinine 1.4 0.5 - 1.4 03/15 Normal [facility] Lv Medical Center CHEMISTRY Chloride Lvl 111.0 95 - 109 03/15 [facility] Medical Center CHEMISTRY Calcium Lvl 8.1 8.5 - 10.5 03/15 [facility] [place] [facility] [place] CHEMISTRY Glucose Lvl 97.0 03/15 NA <sup>12</sup> T ex Interpretive Medical Data: Center Reference Ranges : 0 - 7 days : 41 - 90 mg/dL 7 days - 150 yrs : 70 - 99 mg/dL (fasting), based on the clinical recommendatio ns of the [employer]. CHEMISTRY BUN 21.0 7 - 22 03/15 Normal [facility] CHEMISTRY Magnesium 1.7 1.8 - 2.4 03/15 LOW [facility] HEMATOLOGY Lymphocytes 16.7 20.0 - 03/15 [facility] [place] 40.0 [facility] HEMATOLOGY Monocytes 12.4 2.0 - 12.0 03/15 [facility] HEMATOLOGY Segs 63.3 45.0 - 03/15 [facility] [place] 75.0 [facility] HEMATOLOGY Eosinophils 0.6 0.0 - 0.5 03/15 [facility] [place] [facility] HEMATOLOGY Monocytes # 1.1 0.0 - 0.8 03/15 [facility] [place] [facility] HEMATOLOGY Basophils # 0.1 0.0 - 0.2 03/15 [place] [facility] HEMATOLOGY Lymphocytes 1.5 1.0 - 5.5 03/15 [place] [facility] HEMATOLOGY Segs-Bands # 5.8 1.5 - 8.1 03/15 Normal [facility] HEMATOLOGY Basophils 1.3 0.0 - 1.0 03/15 [place] /2010 [facility] HEMATOLOGY Eosinophils 6.3 0.0 - 4.0 03/15 [facility] [place] [facility] HEMATOLOGY MCH 31.6 27.0 - 10 [facility] [place] 31.0 /2010 [facility] Center HEMATOLOGY RBC 3.56 4.20 - 03/15 [facility] [place] 5.40 /2010 Medical Center HEMATOLOGY MCV 90.7 81.0 - 03/15 Normal [place] 99.0 /2010 [facility] Center HEMATOLOGY Hct 32.3 36.0 - 03/15 LOW [place] 48.0 /2010 Medical Center HEMATOLOGY Hgb 11.3 12.0 - 03/15 LOW [place] 16.0 /2010 [facility] Center HEMATOLOGY WBC 9.1 3.7 - 10.4 03/15 Normal [facility] HEMATOLOGY MPV 10.1 7.4 - 10.4 03/15 Normal /2010 Medical Center HEMATOLOGY Platelet 154.0 133 - 450 03/15 Normal [facility] HEMATOLOGY RDW 14.7 11.5 - 03/15 [facility] [place] 14.5 [facility] HEMATOLOGY MCHC 34.8 32.0 - 10 Normal [place] 36.0 /2010 Medical Center BEDSIDE Comment1 Notify 03/15 NA [facility] GLUCOSE RN/MD /2010 Medical TESTING Center BEDSIDE Gluc POC 126.0 65 - 110 03/15 [place] <sup>3</sup>I [facility] GLUCOSE Lifscn nterpretive Medical TESTING Data: Center Upper Reportable Limit: 200 mg/dL. BEDSIDE Comment2 Sliding 03/14 [facility] GLUCOSE Scale /2010 Medical TESTING Center BEDSIDE Comment2 Sliding 03/14 [facility] GLUCOSE Scale /2010 Medical TESTING Center CHEMISTRY T4 Free 2.0 0.76 - 03/14 [facility] [place] 1.46 Medical Center CHEMISTRY TSH 0.042 0.360 - 03/14 LOW [place] 3.740 /2010 Medical Center CHEMISTRY Total CK 31.0 12 - 191 03/14 Normal [place] /2010 Medical Center CHEMISTRY Lactic Acid 1.6 0.5 - 2.2 03/14 Normal [place] Lvl /2010 Medical Center HEMATOLOGY INR 1.15 0.85 - 03/14 Normal <sup>53</sup> [place] 1.17 Interpretive Medical Data: Center RECOMMENDED RANGES FOR PROTIME INR: 2.0-3.0 for most medical and surgical thromboemboli c states. 2.5-3.5 for artificial heart valves and recurrent embolism. INR SHOULD BE USED ONLY FOR PATIENTS ON STABLE ANTICOAGULANT THERAPY. HEMATOLOGY PT 14.7 12.0 - 03/14 Normal 14.7 Medical Center HEMATOLOGY PTT 30.3 22.9 - 03/14 Normal <sup>54</sup> [place] 35.8 /2010 Interpretive Medical Data: Heparin Center Therapeutic Range: 57 - 92 Seconds CHEMISTRY Lipase Lvl 49.0 73 - 393 03/14 LOW <sup>28</sup> T ex Result Medical Comment: Center Collection date/time has [...] 0.8 0.7 - 1.6 03/14 Normal <sup>19</sup> ex Result Medical Comment: Center Collection date/time has been modified to: 01:50:00. Previous collection date/time: 01:50:00. CHEMISTRY Globulin 3.4 2.0 - 4.0 03/14 Normal <sup>18[place]sup> [place] Result Medical Comment: Center Collection date/time has [...] 0.4 0.2 - 1.3 03/14 Normal <sup>26</sup> MH Result Medical Comment: Center Collection date/time has been modified to: 01:50:00. Previous collection date/time: 01:50:00. CHEMISTRY Total 6.2 6.4 - 8.4 03/14 LOW <sup>16</sup> MH [place] Protein Result Medical Comment: Center Collection date/time has been modified to: 01:50:00. Previous collection date/time: 01:50:00. CHEMISTRY Alk Phos 109.0 39 - 136 03/14 Normal <sup>25</sup> MH [place] Result Medical Comment: Center Collection date/time has been modified to: 01:50:00. Previous collection date/time: 01:50:00. CHEMISTRY Albumin Lvl 2.8 3.5 - 5.0 03/14 LOW <sup>17</sup> Result Medical Comment: Center Collection date/time has been modified to: 01:50:00. Previous collection date/time: 01:50:00. CHEMISTRY B/C Ratio 14.0 6 - 25 03/14 Normal <sup>11</sup> [place] Result Medical Comment: Center Collection date/time has been modified to: 01:50:00. Previous collection date/time: 01:50:00. CHEMISTRY Calcium Lvl 8.4 8.5 - 10.5 03/14 LOW <sup>20</sup> M H Result Medical Comment: Center Collection date/time has been modified to: 01:50:00. Previous collection date/time: 01:50:00. CHEMISTRY AGAP 21.8 10.0 - 03/14 HI <sup>8</sup>R [place] 20.0 /2010 esult Medical Comment: Center Collection date/time has [...] 3.8 3.5 - 5.1 03/14 Normal <sup>5</sup>R [place] L[place]ult Medical Comment: Center Collection date/time has been modified to: 01:50:00. Previous collection date/time: 01:50:00. CHEMISTRY BUN 20.0 7 - 22 03/14 Normal <sup>10</sup> Result Medical Comment: Center Collection date/time has been modified to: 01:50:00. Previous collection date/time: 01:50:00. CHEMISTRY Creatinine 1.4 0.5 - 1.4 03/14 [facility]sup[facility]sup[facility] Comment: Center Collection date/time has been modified to: 01:50:00. Previous collection date/time: 01:50:00. CHEMISTRY Glucose Lvl 91.0 03/14 NA <sup>13</sup> [place] Result Medical Comment: Center Collection date/time has been modified to: 01:50:00. Previous collection date/time: 01:50:00.<br/ ><sup>14</sup >Interpretive Data: Reference Ranges : 0 - 7 days : 41 - 90 mg/dL 7 days - 150 yrs : 70 - 99 mg/dL (fasting), based on the clinical recommendatio ns of the [employer].< br/><sup>15</ sup>Interpret kimberly Data: Reference Ranges : 0 - 7 days : 41 - 90 mg/dL 7 days - 150 yrs : 70 - 99 mg/dL (fasting), based on the clinical recommendatio ns of the [employer]. CHEMISTRY Magnesium 1.2 1.8 - 2.4 03/14 LOW <sup>22</sup> [place] Lvl Result Medical Comment: Center Collection date/time has been modified to: 01:50:00. Previous collection date/time: 01:50:00. HEMATOLOGY Monocytes 10.3 2.0 - 12.0 03/14 Normal <sup>41</sup> MH Result Medical Comment: Center Collection date/time has been modified to: 01:50:00. Previous collection date/time: 01:50:00. HEMATOLOGY Eosinophils 6.2 0.0 - 4.0 03/14 [place] <sup>42</sup> M H Result Medical Comment: Center Collection date/time has been modified to: 01:50:00. Previous collection date/time: 01:50:00. HEMATOLOGY Segs 61.3 45.0 - 03/14 Normal <sup>39</sup> [place] 75.[place] Result Medical Comment: Center Collection date/time has been modified to: 01:50:00. Previous collection date/time: 01:50:00. HEMATOLOGY Lymphocytes 22.2 20.0 - 03/14 Normal <sup>40</sup> [place] 40.0 Result Medical Comment: Center Collection date/time has been modified to: 01:50:00. Previous collection date/time: 01:50:00. HEMATOLOGY Basophils 0.0 0.0 - 1.0 03/14 Normal <sup>43</sup> Result Medical Comment: Center Collection date/time has been modified to: 01:50:00. Previous collection date/time: 01:50:00. HEMATOLOGY Monocytes # 1.2 0.0 - 0.8 03/14 [place] <sup>46</sup> M H Result Medical Comment: Center Collection date/time has been modified to: 01:50:00. Previous collection date/time: 01:50:00. HEMATOLOGY Segs-Bands # 7.3 1.5 - 8.1 03/14 Normal <sup>44</sup> Result Medical Comment: Center Collection date/time has been modified to: 01:50:00. Previous collection date/time: 01:50:00. HEMATOLOGY Basophils # 0.0 0.0 - 0.2 03/14 Normal <sup>48</sup> M H Result Medical Comment: Center Collection date/time has been modified to: 01:50:00. Previous collection date/time: 01:50:00. HEMATOLOGY Eosinophils 0.7 0.0 - 0.5 03/14 [place] <sup>47</sup> M H Result Medical Comment: Center Collection date/time has been modified to: 01:50:00. Previous collection date/time: 01:50:00. HEMATOLOGY Lymphocytes 2.6 1.0 - 5.5 03/14 Normal <sup>45</sup> M H Result Medical Comment: Center Collection date/time has been modified to: 01:50:00. Previous collection date/time: 01:50:00. HEMATOLOGY Large Plt Slight 52 >None Seen 03/14 ABN <sup>52</sup> [facility] *ABN* /2010 Result Medical (03/14/2011 01:50:00) ?? Comment : Center Collection date/time has been modified to: 01:50:00. Previous collection date/time: 01:50:00. HEMATOLOGY [place] Cell Slight 51 >None Seen 03/14 ABN <sup>51</sup> [facility] *ABN* /2010 Result Medical (03/14/2011 01:50:00) ?? Comment : Center Collection date/time has been modified to: 01:50:00. Previous collection date/time: 01:50:00. HEMATOLOGY Anisocyte 1+ 49 >None Seen 03/14 ABN <sup>49</sup> [facility] *ABN* Result Medical (03/14/2011 01:50:00) ?? Comment : Center Collection date/time has been modified to: 01:50:00. Previous collection date/time: 01:50:00. HEMATOLOGY Polychrom Slight 50 >None Seen 03/14 Normal <sup>50</sup> [facility] (03/14/2011 01:50:00) ?? /2010 Result Medical Comment: Center Collection date/time has been modified to: 01:50:00. Previous collection date/time: 01:50:00. HEMATOLOGY Hgb 13.3 12.0 - 03/14 [place]sup>[place]sup> [place] 16[place] /[place] Result Medical Comment: Center Collection date/time has been modified to: 01:50:00. Previous collection date/time: 01:50:00. HEMATOLOGY WBC 11.8 3.7 - 10.4 03/14 [place] <sup>29</sup> [place] Result Medical Comment: Center Collection date/time has been modified to: 01:50:00. Previous collection date/time: 01:50:00. HEMATOLOGY RBC 4.18 4.20 - 03/14 LOW <sup>30</sup> [place] 5.40 /2010 Result Medical Comment: Center Collection date/time has been modified to: 01:50:00. Previous collection date/time: 01:50:00. HEMATOLOGY MCV 90.6 81.0 - 03/14 Normal <sup>33</sup> [place] 99.0 /2010 Result Medical Comment: Center Collection date/time has been modified to: 01:50:00. Previous collection date/time: 01:50:00. HEMATOLOGY MCH 31.8 27.0 - 10 [place] <sup>34</sup> [place] 31.0 /2010 Result Medical Comment: Center Collection date/time has been modified to: 01:50:00. Previous collection date/time: 01:50:00. HEMATOLOGY Hct 37.9 36.0 - 03/14 Normal <sup>32</sup> [place] 48.0 /2010 Result Medical Comment: Center Collection date/time has been modified to: 01:50:00. Previous collection date/time: 01:50:00. HEMATOLOGY MPV 10.0 7.4 - 10.4 03/14 Normal <sup>38</sup> [place] /2010 Result Medical Comment: Center Collection date/time has been modified to: 01:50:00. Previous collection date/time: 01:50:00. HEMATOLOGY RDW 13.5 11.5 - 03/14 Normal <sup>36</sup> [place] 14.5 /2010 Result Medical Comment: Center Collection date/time has been modified to: 01:50:00. Previous collection date/time: 01:50:00. HEMATOLOGY Platelet 199.0 133 - 450 03/14 Normal <sup>37</sup> [place] /2010 Result Medical Comment: Center Collection date/time has been modified to: 01:50:00. Previous collection date/time: 01:50:00. HEMATOLOGY MCHC 35.1 32.0 - 03/14 Normal <sup>35</sup> [place] 36.0 /2010 Result Medical Comment: Center Collection date/time has been modified to: 01:50:00. Previous collection date/time: 01:50:00. CHEMISTRY AST 27.0 0 - 37 03/13 Normal [facility] CHEMISTRY Globulin 3.2 2.0 - 4.0 03/13 Normal [facility] CHEMISTRY Albumin Lvl 2.9 3.5 - 5.0 03/13 LOW [facility] CHEMISTRY ALT 32.0 0 - 65 03/13 Normal [facility] CHEMISTRY Total 6.1 6.4 - 8.4 03/13 LOW [facility] CHEMISTRY A/G Ratio 0.9 0.7 - 1.6 03/13 Normal [facility] CHEMISTRY Bili 0.3 0.0 - 1.0 03/13 Normal [facility] CHEMISTRY Bili Total 0.4 0.2 - 1.3 03/13 Normal [facility] CHEMISTRY Bili Direct 0.1 0.0 - 0.3 03/13 Normal [facility] CHEMISTRY Alk Phos 103.0 39 - 136 03/13 Normal [facility] BEDSIDE Gluc POC 197.0 65 - 110 03/07 [place] <sup>1</sup>I [facility] GLUCOSE [place] nterpretive Medical TESTING Data: [place] Upper Reportable Limit: 200 mg/dL. BEDSIDE Comment1 Notify 03/07 [facility] GLUCOSE RN/MD Medical TESTING Center BEDSIDE Comment2 Sliding 03/07 [facility] GLUCOSE Scale Medical TESTING Center BEDSIDE Gluc POC 112.0 65 - 110 03/07 [place] <sup>2</sup>I [facility] GLUCOSE Lifscn nterpretive Medical TESTING Data: [place] Reportable Limit: 200 mg/dL. BEDSIDE Comment1 Notify 03/07 NA [facility] GLUCOSE RN/MD Medical TESTING Center BEDSIDE Comment2 Sliding 03/07 [facility] GLUCOSE Scale Medical TESTING Center BEDSIDE Comment1 Notify 03/07 [facility] GLUCOSE RN/MD Medical TESTING Center BEDSIDE Gluc POC 180.0 65 - 110 03/07 [place] <sup>3</sup>I [facility] GLUCOSE Lifscn nterpretive Medical TESTING Data: Center Upper Reportable Limit: 200 mg/dL. BEDSIDE Comment2 Sliding 03/06 NA [facility] GLUCOSE Scale Medical TESTING Center CHEMISTRY eGFR >60.0 03/05 [...] Lvl 144.0 135 - 145 03/05 Normal [facility] CHEMISTRY Potassium 3.8 3.5 - 5.1 03/05 [facility] CHEMISTRY Calcium Lvl 8.4 8.5 - 10.5 03/05 LOW [facility] CHEMISTRY AGAP 15.8 10.0 - 03/05 Normal [facility] 20.0 Medical Center CHEMISTRY CO2 25.0 24 - 32 03/05 Normal [facility] CHEMISTRY BUN 16.0 7 - 22 03/05 Normal [facility] CHEMISTRY Creatinine 0.9 0.5 - 1.4 03/05 Normal [facility] CHEMISTRY Glucose Lvl 77.0 03/05 NA <sup>5</sup>I [place] ex nterpretive Medical Data: Center Reference Ranges : 0 - 7 days : 41 - 90 mg/dL 7 days - 150 yrs : 70 - 99 mg/dL (fasting), based on the clinical recommendatio ns of the [employer]. HEMATOLOGY Segs 45.6 45.0 - 03/05 Normal [facility] 75.0 [facility] HEMATOLOGY Monocytes 10.4 2.0 - 12.0 03/05 Normal [facility] HEMATOLOGY Eosinophils 3.5 0.0 - 4.0 03/05 Normal [facility] s [facility] HEMATOLOGY Lymphocytes 38.5 20.0 - 10 Normal [facility] 40.0 [facility] HEMATOLOGY Eosinophils 0.4 0.0 - 0.5 03/05 [facility] HEMATOLOGY Basophils # 0.2 0.0 - 0.2 03/05 [facility] HEMATOLOGY Basophils 2.0 0.0 - 1.0 10 [place] [facility] HEMATOLOGY Segs-Bands # 5.8 1.5 - 8.1 10 Normal [place] /2010 [facility] Center HEMATOLOGY Lymphocytes 4.9 1.0 - 5.5 10 [place] # /2010 [facility] HEMATOLOGY Monocytes # 1.3 0.0 - 0.8 03/05 [place] /2010 [facility] HEMATOLOGY Hgb 9.9 12.0 - 10 LOW [place] 16.0 Medical Center HEMATOLOGY MCV 92.6 81.0 - 10 Normal [place] 99.0 Medical Center HEMATOLOGY RBC 3.08 4.20 - 10 LOW [place] 5.40 /2010 Medical Center HEMATOLOGY WBC 12.7 3.7 - 10.4 03/05 [facility] Center HEMATOLOGY MCH 32.0 27.0 - 03/05 [facility] [place] 31.0 Medical Center HEMATOLOGY Hct 28.5 36.0 - 03/05 LOW [place] 48.0 Medical Center HEMATOLOGY MCHC 34.6 32.0 - 10 Normal [place] 36.0 Medical Center HEMATOLOGY Platelet 221.0 133 - 450 10 Normal [facility] HEMATOLOGY RDW 16.5 11.5 - 03/05 [facility] [place] 14. Medical Center HEMATOLOGY MPV 9.1 7.4 - 10.4 10 Normal [facility] HEMATOLOGY Platelet 270.0 133 - 450 03/03 Normal [facility] Center HEMATOLOGY RDW 16.4 11.5 - 03/03 [facility] [place] 14. Medical Center HEMATOLOGY MCHC 33.6 32.0 - 10 Normal [place] 36.0 Medical Center HEMATOLOGY MCH 31.8 27.0 - 10 [facility] [place] 31.0 Medical Center HEMATOLOGY WBC 12.4 3.7 - 10.4 10 [facility] Center HEMATOLOGY MPV 9.4 7.4 - 10.4 10 Normal [facility] HEMATOLOGY MCV 94.6 81.0 - 10 Normal [place] 99.0 /2010 Medical Center HEMATOLOGY Hct 30.8 36.0 - 10 LOW [place] 48.0 Medical Center HEMATOLOGY Hgb 10.4 12.0 - 10 LOW [place] 16.0 /2010 Medical Center HEMATOLOGY RBC 3.25 4.20 - 10 [facility] [place] 5.40 /2010 Medical Center HEMATOLOGY RDW 16.0 11.5 - 10 [facility] [place] 14.5 /2010 Medical Center HEMATOLOGY MPV 9.1 7.4 - 10.4 10 Normal [facility] HEMATOLOGY Platelet 283.0 133 - 450 03/02 Normal [facility] HEMATOLOGY RBC 3.23 4.20 - 10 LOW [place] 5.40 /2010 Medical Center HEMATOLOGY MCV 94.5 81.0 - 03/02 Normal [place] 99.0 /2010 Medical Center HEMATOLOGY Hct 30.5 36.0 - 10 LOW [place] 48.0 /2010 Medical Center HEMATOLOGY Hgb 10.3 12.0 - 10 [facility] [place] 16.0 /2010 Medical Center HEMATOLOGY MCHC 33.6 32.0 - 03/02 Normal [place] 36.0 /2010 Medical Center HEMATOLOGY WBC 12.7 3.7 - 10.4 03/02 [place] [facility] HEMATOLOGY MCH 31.8 27.0 - 10 [facility] [place] 31.0 /2010 Medical Center URINALYSIS UA ?? 0.1 - 1.0 03/01 [facility] URINALYSIS UA Turbidity Clear >Clear 03/01 Normal [facility] (03/01/2011 15:38:00) ?? Medical Center URINALYSIS UA Spec Grav 1.009 <<=1.030 03/01 [place] [facility] URINALYSIS UA Color Yellow >Yellow 03/01 [facility] Medical (03/01/2011 15:38:00) ?? Center URINALYSIS UA pH 5.5 5.0 - 8.0 03/01 Normal Medical Center URINALYSIS UA Ketones Negative mg/dL >Negative [facility] ?? Center URINALYSIS UA Glucose Negative mg/dL >Negative 03[facility]01[facility]2011 15:38:00[facility] ?? Center URINALYSIS UA Bili Negative >Negative 03/01 NA MH [place] *NA* /2010 Medical (03/01/2011 15:38:00) ?? Center URINALYSIS UA Blood Negative >Negative 03/01 Normal [place] (03/01/2011 15:38:00) ?? Medical Center URINALYSIS UA WBC <1.0 0 - 5 03/01 Normal Medical Center URINALYSIS UA Nitrite Negative >Negative 03/01 [place] (03/01/2011 15:38:00) ?? Medical Center URINALYSIS UA Leuk Est Negative >Negative 03/01 Normal [place] (03/01/2011 15:38:00) ?? Medical Center URINALYSIS UA Mucus Few /LPF >None Seen 03/01 NA [place] *NA* Medical (03/01/2011 15:38:00) ?? Center URINALYSIS UA Sq Epi Moderate /LPF >Few 03/01 [place] *ABN* Medical (03/01/2011 15:38:00) ?? Center URINALYSIS UA Hyal Cast 1.0 0 - 2 03/01 Normal Medical Center URINALYSIS UA Protein 10 mg/dL >Negative 03/01 [place] *ABN* Medical (03/01/2011 15:38:00) ?? Center Microbiolog Culture: 03/01 [place] y Urine [facility] HEMATOLOGY Lymphocytes 5.7 1.0 - 5.5 02/28 [place] # /2010 Medical Center HEMATOLOGY Segs-Bands # 4.8 1.5 - 8.1 02/28 Normal [place] /2010 [facility] HEMATOLOGY Basophils 1.0 0.0 - 1.0 02/28 Normal [facility] HEMATOLOGY Monocytes 8.9 2.0 - 12.0 02/28 Normal [place] [facility] HEMATOLOGY Eosinophils 2.8 0.0 - 4.0 02/28 [place] /2010 [facility] HEMATOLOGY Lymphocytes 47.3 20.0 - 02/28 HI [place] 40.0 Medical Center HEMATOLOGY Segs 40.0 45.0 - 02/28 LOW [place] 75.0 Medical Center HEMATOLOGY Basophils # 0.1 0.0 - 0.2 02/28 [place] /2010 [facility] Center HEMATOLOGY Monocytes # 1.1 0.0 - 0.8 02/28 [place] [facility] HEMATOLOGY Eosinophils 0.3 0.0 - 0.5 02/28 [place] [facility] CHEMISTRY Globulin 2.8 2.0 - 4.0 02/27 Normal Medical Center CHEMISTRY B/C Ratio 14.0 6 - 25 02/27 Normal Medical Center CHEMISTRY AGAP 13.8 10.0 - 02/27 Normal [place] 20.0 Medical Center CHEMISTRY A/G Ratio 0.8 0.7 - 1.6 02/27 Normal Medical Center CHEMISTRY Total 5.0 6.4 - 8.4 02/27 LOW Medical Center CHEMISTRY Calcium Lvl 8.4 8.5 - 10.5 02/27 LOW Medical Center CHEMISTRY ALT 24.0 0 - 65 02/27 Normal Medical Center CHEMISTRY Albumin Lvl 2.2 3.5 - 5.0 02/27 LOW Medical Center CHEMISTRY Bili Total 0.3 0.2 - 1.3 02/27 Normal Medical Center CHEMISTRY AST 21.0 0 - 37 02/27 Normal Medical Center CHEMISTRY Alk Phos 98.0 39 - 136 02/27 Normal Medical Center CHEMISTRY CO2 28.0 24 - 32 02/27 Normal Medical Center CHEMISTRY BUN 10.0 7 - 22 02/27 Normal [facility] Center CHEMISTRY Potassium 3.8 3.5 - 5.1 02/27 Normal l Medical Center CHEMISTRY Sodium Lvl 143.0 135 - 145 02/27 Normal Medical Center CHEMISTRY Creatinine 0.7 0.5 - 1.4 02/27 Normal Medical Center CHEMISTRY Glucose Lvl 119.0 02/27 NA <sup>6</sup>I T ex nterpretive Medical Data: Center Reference Ranges : 0 - 7 days : 41 - 90 mg/dL 7 days - 150 yrs : 70 - 99 mg/dL (fasting), based on the clinical recommendatio ns of the [employer]. CHEMISTRY Chloride Lvl 105.0 95 - 109 02/27 Normal Medical [facility] HEMATOLOGY Monocytes # 0.9 0.0 - 0.8 02/27 [place] /2011 [facility] HEMATOLOGY Eosinophils 0.3 0.0 - 0.5 02/27 [place] # /2010 [facility] Center HEMATOLOGY Lymphocytes 3.3 1.0 - 5.5 02/27 [place] # /2010 [facility] Center HEMATOLOGY Basophils # 0.1 0.0 - 0.2 02/27 Normal [place] [facility] HEMATOLOGY Basophils 1.2 0.0 - 1.0 02/27 [place] [facility] HEMATOLOGY Segs-Bands # 6.0 1.5 - 8.1 02/27 Normal [place] [facility] HEMATOLOGY Monocytes 8.3 2.0 - 12.0 02/27 Normal Medical Center HEMATOLOGY Eosinophils 3.1 0.0 - 4.0 02/27 Normal [facility] HEMATOLOGY Segs 56.6 45.0 - 02/27 Normal [place] 75.0 Medical Center HEMATOLOGY Lymphocytes 30.8 20.0 - 02/27 Normal [facility] 40.0 Medical Center BEDSIDE Gluc POC 207.0 65 - 110 02/26 [place] <sup>1</sup>I [facility] GLUCOSE nc nterpretive Medical TESTING Data: Center Upper Reportable Limit: 200 mg/dL. BEDSIDE Comment1 Notify 02/26 NA [facility] GLUCOSE RN/ /2010 Medical TESTING Center BEDSIDE Comment1 Notify 02/26 NA [facility] GLUCOSE RN/ Medical TESTING Center BEDSIDE Gluc POC 155.0 65 - 110 02/26 [place] <sup>2</sup>I [facility] GLUCOSE [facility] nterpretive Medical TESTING Data: Center Upper Reportable Limit: 200 mg/dL. BEDSIDE Gluc POC 140.0 65 - 110 02/26 [place] <sup>3</sup>I [facility] GLUCOSE [facility] nterpretive Medical TESTING Data: Center Upper Reportable Limit: 200 mg/dL. CHEMISTRY AGAP 15.6 10.0 - 02/26 Normal [place] 20.0 [facility] Center CHEMISTRY CO2 25.0 24 - 32 02/26 Normal [facility] Center CHEMISTRY Calcium Lvl 7.9 8.5 - 10.5 02/26 LOW [facility] Center CHEMISTRY Sodium Lvl 142.0 135 - 145 02/26 Normal Medical Center CHEMISTRY Potassium 3.6 3.5 - 5.1 02/26 Normal [facility] Medical Center CHEMISTRY Creatinine 0.5 0.5 - 1.4 02/26 Normal [facility] Center CHEMISTRY Chloride Lvl 105.0 95 - 109 02/26 Normal [facility] Center CHEMISTRY BUN 9.0 7 - 22 02/26 Normal Medical Center CHEMISTRY Glucose Lvl 120.0 02/26 NA <sup>4</sup>I nterpretive Medical Data: Center Reference Ranges : 0 - 7 days : 41 - 90 mg/dL 7 days - 150 yrs : 70 - 99 mg/dL (fasting), based on the clinical recommendatio ns of the [employer]. HEMATOLOGY Hgb 10.5 12.0 - 02/26 LOW [facility] 16. [facility] HEMATOLOGY Hct 31.2 36.0 - 02/26 LOW [facility] 48.0 Medical Center BEDSIDE Comment1 Notify 02/26 NA [facility] GLUCOSE RN/ Medical TESTING Center CHEMISTRY Magnesium 1.9 1.8 - 2.4 02/24 Normal [facility] CHEMISTRY Calcium Lvl 7.9 8.5 - 10.5 02/24 [place] [facility] CHEMISTRY Chloride Lvl 106.0 95 - 109 02/24 Normal [facility] Center CHEMISTRY CO2 24.0 24 - 32 02/24 Normal [facility] CHEMISTRY Sodium Lvl 142.0 135 - 145 02/24 Normal [facility] Center CHEMISTRY Creatinine 0.6 0.5 - 1.4 02/24 Normal [facility] Center CHEMISTRY BUN 12.0 7 - 02/24 Normal Medical Center CHEMISTRY Glucose Lvl 89.0 02/24 NA <sup>5</sup>I nterpretive Medical Data: Center Reference Ranges : 0 - 7 days : 41 - 90 mg/dL 7 days - 150 yrs : 70 - 99 mg/dL (fasting), based on the clinical recommendatio ns of the [employer]. CHEMISTRY Potassium 3.7 3.5 - 5.1 02/24 Normal [facility] Center CHEMISTRY AGAP 15.7 10.0 - 02/24 Normal [facility] [place] 20.0 Medical Center HEMATOLOGY Hct 30.7 36.0 - 02/24 [facility] [place] 48.0 Medical Center HEMATOLOGY Hgb 10.3 12.0 - 02/24 [facility] [place] 16.0 Medical Center HEMATOLOGY Sed Rate 105.0 0 - 20 02/24 [facility] Medical Center CHEMISTRY Magnesium 1.7 1.8 - 2.4 02/21 [facility] CHEMISTRY Ca Norm mgdL 4.64 4.65 - 02/21 [facility] [place] 5. Medical Center CHEMISTRY Ca Ion 1.1 1.16 - 02/21 [facility] [place] 1. Medical Center CHEMISTRY Ca Norm 1.16 1.16 - 02/21 [facility] [place] 06.30 Medical Center CHEMISTRY Ca Ion mgdL 4.4 4.65 - 02/21 [facility] . Medical Center CHEMISTRY AGAP 16.9 10.0 - 02/21 [facility] 20.0 Medical Center CHEMISTRY BUN 6.0 7 - 22 02/21 [facility] Medical Center CHEMISTRY Creatinine 0.4 0.5 - 1.4 02/21 [facility] CHEMISTRY Glucose Lvl 154.0 02/21 NA <sup>6</sup>I T ex nterpretive Medical Data: Center Reference Ranges : 0 - 7 days : 41 - 90 mg/dL 7 days - 150 yrs : 70 - 99 mg/dL (fasting), based on the clinical recommendatio ns of the [employer]. CHEMISTRY Potassium 4.9 3.5 - 5.1 02/21 [facility] [place] [facility] CHEMISTRY Sodium Lvl 138.0 135 - 145 02/21 [facility] CHEMISTRY Calcium Lvl 7.7 8.5 - 10.5 02/21 [facility] [place] [facility] CHEMISTRY Chloride Lvl 107.0 95 - 109 02/21 [facility] CHEMISTRY CO2 19.0 24 - 32 02/21 [facility] Medical Center CHEMISTRY Phosphorus 3.7 2.5 - 4.5 02/21 [facility] HEMATOLOGY Eosinophils 0.6 0.0 - 0.5 02/21 [facility] [place] # [place] [facility] HEMATOLOGY Monocytes # 0.9 0.0 - 0.8 02/21 [facility] [place] [facility] HEMATOLOGY Basophils # 0.0 0.0 - 0.2 02/21 [place] [facility] HEMATOLOGY Eosinophils 6.9 0.0 - 4.0 02/21 [place] [facility] HEMATOLOGY Monocytes 9.6 2.0 - 12.0 02/21 Normal [facility] HEMATOLOGY Segs-Bands # 5.2 1.5 - 8.1 02/21 Normal [place] /2010 [facility] HEMATOLOGY Basophils 0.3 0.0 - 1.0 02/21 Normal [place] /2010 [facility] Center HEMATOLOGY Lymphocytes 2.3 1.0 - 5.5 02/21 [place] # /2010 [facility] HEMATOLOGY Segs 57.5 45.0 - 02/21 Normal [place] 75.0 /2010 Medical Center HEMATOLOGY Lymphocytes 25.7 20.0 - 02/21 Normal [place] 40.0 /2010 Medical Center HEMATOLOGY MCHC 34.1 32.0 - 02/21 Normal [place] 36.0 Medical Center HEMATOLOGY Platelet 166.0 133 - 450 02/21 Normal Medical Center HEMATOLOGY RDW 16.2 11.5 - 02/21 [facility] [place] 14.5 /2010 Medical Center HEMATOLOGY MPV 7.8 7.4 - 10.4 02/21 Normal Medical [facility] HEMATOLOGY Hct 32.4 36.0 - 02/21 LOW [place] 48.0 /2010 Medical Center HEMATOLOGY MCV 96.0 81.0 - 02/21 Normal [place] 99.0 /2010 Medical Center HEMATOLOGY MCH 32.7 27.0 - 02/21 [facility] [place] 31.0 Medical Center HEMATOLOGY RBC 3.38 4.20 - 02/21 LOW [place] 5.40 /2010 Medical Center HEMATOLOGY Hgb 11.0 12.0 - 02/21 LOW [place] 16.0 /2010 Medical Center HEMATOLOGY WBC 9.0 3.7 - 10.4 02/21 Normal Medical Center CHEMISTRY Magnesium 3.1 1.8 - 2.4 02/20 [facility] [place] Lvl /2010 Medical Center CHEMISTRY Phosphorus 3.4 2.5 - 4.5 02/20 Normal [facility] CHEMISTRY Ca Ion mgdL 5.08 4.65 - 02/20 Normal [place] 5.20 /2010 [facility] Center CHEMISTRY Ca Norm 1.28 1.16 - 02/20 Normal [place] 1.30 Medical Center CHEMISTRY Ca Ion 1.27 1.16 - 02/20 Normal [place] 1. Medical Center CHEMISTRY Ca Norm mgdL 5.12 4.65 - 02/20 Normal [place] 5. Medical Center HEMATOLOGY MCV 95.8 81.0 - 02/20 Normal [place] 99.0 /2010 Medical Center HEMATOLOGY Platelet 175.0 133 - 450 02/20 Normal Medical Center HEMATOLOGY MPV 7.8 7.4 - 10.4 02/20 Normal /2010 Medical Center HEMATOLOGY MCH 32.2 27.0 - 02/20 HI [place] 31.0 Medical Center HEMATOLOGY MCHC 33.7 32.0 - 02/20 Normal [place] 36.0 Medical Center HEMATOLOGY RDW 16.5 11.5 - 02/20 HI [place] 14.5 Medical Center HEMATOLOGY RBC 3.19 4.20 - 02/20 LOW [place] 5.40 Medical Center HEMATOLOGY WBC 6.9 3.7 - 10.4 02/20 Normal Medical [facility] HEMATOLOGY Eosinophils 0.4 0.0 - 0.5 02/20 [place] # /2010 [facility] HEMATOLOGY Basophils # 0.0 0.0 - 0.2 02/20 [facility] [place] [facility] HEMATOLOGY Monocytes # 0.6 0.0 - 0.8 02/20 [facility] [place] [facility] HEMATOLOGY Segs 63.4 45.0 - 02/20 Normal [place] 75.0 Medical Center HEMATOLOGY Lymphocytes 20.5 20.0 - 02/20 Normal [place] 40.0 Medical Center HEMATOLOGY Monocytes 9.3 2.0 - 12.0 02/20 Normal [facility] HEMATOLOGY Eosinophils 6.4 0.0 - 4.0 02/20 [facility] [place] [facility] HEMATOLOGY Basophils 0.4 0.0 - 1.0 02/20 [facility] HEMATOLOGY Segs-Bands # 4.4 1.5 - 8.1 02/20 Normal [place] [facility] HEMATOLOGY Lymphocytes 1.4 1.0 - 5.5 02/20 [place] # /2010 [facility] Center CHEMISTRY Ca Norm 1.02 1.16 - 02/19 LOW [place] 1. Medical Center CHEMISTRY Ca Norm mgdL 4.08 4.65 - 02/19 [facility] [place] 5.20 Medical Center CHEMISTRY Ca Ion mgdL 4.12 4.65 - 02/19 [facility] [place] 5. Medical Center CHEMISTRY Ca Ion 1.03 1.16 - 02/19 [facility] [place] 1.30 Medical Center CHEMISTRY AST 66.0 0 - 37 02/19 [facility] CHEMISTRY Bili Total 0.8 0.2 - 1.3 02/19 Normal Medical Center CHEMISTRY Albumin Lvl 2.3 3.5 - 5.0 02/19 [facility] CHEMISTRY Total 4.8 6.4 - 8.4 02/19 [facility] CHEMISTRY ALT 67.0 0 - 65 02/19 [facility] CHEMISTRY Globulin 2.5 2.0 - 4.0 02/19 Normal [facility] CHEMISTRY A/G Ratio 0.9 0.7 - 1.6 02/19 [facility] Center CHEMISTRY Alk Phos 155.0 39 - 136 02/19 [facility] Medical Center CHEMISTRY B/C Ratio 20.0 6 - 25 02/19 Normal [facility] HEMATOLOGY PTT 29.4 22.9 - 02/19 Normal <sup>8</sup>[place] 35.8 nterpretive Medical Data: Heparin Center Therapeutic Range: 57 - 92 Seconds HEMATOLOGY PT 13.9 12.0 - 02/19 Normal [place] 14.7 Medical Center HEMATOLOGY INR 1.07 0.85 - 02/19 Normal <sup>7</sup>[place] 1.17 nterpretive Medical Data: Center RECOMMENDED RANGES FOR PROTIME INR: 2.0-3.0 for most medical and surgical thromboemboli c states. 2.5-3.5 for artificial heart valves and recurrent embolism. INR SHOULD BE USED ONLY FOR PATIENTS ON STABLE ANTICOAGULANT THERAPY. HEMATOLOGY RBC 3.4 4.20 - 02/19 [facility] [place] 5.40 /2010 Medical Center HEMATOLOGY MCH 32.2 27.0 - 02/19 [facility] [place] 31.0 Medical Center HEMATOLOGY MCV 95.7 81.0 - 02/19 [facility] 99.0 Medical Center HEMATOLOGY MCHC 33.6 32.0 - 09/21 Normal [place] 36.0 /2010 Medical Center HEMATOLOGY RDW 16.7 11.5 - 02/19 HI [place] 14.5 /2010 Medical Center HEMATOLOGY MPV 7.8 7.4 - 10.4 02/19 Normal [facility] HEMATOLOGY Platelet 173.0 133 - 450 02/19 Normal [facility] HEMATOLOGY WBC 7.4 3.7 - 10.4 02/19 Normal [facility] HEMATOLOGY Monocytes 8.7 2.0 - 12.0 02/19 Normal [facility] HEMATOLOGY Lymphocytes 15.6 20.0 - 02/19 LOW [place] 40.0 /2010 Medical Center HEMATOLOGY Lymphocytes 1.1 1.0 - 5.5 02/19 [place] # [facility] HEMATOLOGY Monocytes # 0.6 0.0 - 0.8 02/19 [facility] [place] [facility] HEMATOLOGY Eosinophils 5.3 0.0 - 4.0 02/19 [place] [facility] HEMATOLOGY Segs-Bands # 5.1 1.5 - 8.1 02/19 [facility] [place] [facility] HEMATOLOGY Basophils 0.6 0.0 - 1.0 02/19 Normal [facility] HEMATOLOGY Segs 69.8 45.0 - 02/19 Normal [place] 75.0 Medical Center HEMATOLOGY Eosinophils 0.4 0.0 - 0.5 02/19 [place] # [facility] HEMATOLOGY Basophils # 0.0 0.0 - 0.2 02/19 [facility] [place] [facility] CHEMISTRY Lactic Acid 1.1 0.5 - 2.2 02/19 Normal [place] Lvl Medical Center Microbiolog Culture: 02/19 [facility] y Resistant Medical Acinetobacte Center r Screen Microbiolog Culture: 02/19 [facility] y MRSA /2010 Medical Center Microbiolog Culture: 02/19 [facility] y Anaerobic Medical Center Microbiolog Culture: 02/19 [facility] y Aspirate/Bod Medical y Center Fluid/Tissue CHEMISTRY POC A Glu 109.0 65 - 110 02/19 Normal Medical [facility] CHEMISTRY POC A LA 0.6 0.5 - 2.2 02/19 Normal Medical [facility] CHEMISTRY POC A Ca Ion 1.08 1.16 - 02/19 LOW [facility] [place] 1.30 Medical Center CHEMISTRY POC A Na 140.0 135 - 145 02/19 Normal Medical Center CHEMISTRY POC A Hct 29.0 36.0 - 02/19 LOW [facility] 48.0 Medical Center CHEMISTRY POC A K 3.3 3.5 - 5.1 02/19 LOW Medical [facility] CHEMISTRY POC A O2 Sat 100.0 95.0 - 02/19 Normal [facility] 100.0 Medical Center CHEMISTRY POC A HCO3 22.0 22 - 26 02/19 Normal [facility] Center CHEMISTRY POC A BE -4.0 -2-2 - 2 02/19 LOW [facility] Center CHEMISTRY POC A Source ART 02/19 NA [facility] Center CHEMISTRY POC A pH 7.33 7.35 - 02/19 LOW [facility] 7.45 [facility] Center CHEMISTRY POC A PCO2 41.0 35 - 45 02/19 Normal [facility] Center CHEMISTRY POC A Temp 37.0 02/19 NA Medical Center CHEMISTRY POC A PO2 433.0 80 - 100 02/19 [facility] Microbiolog Culture: 02/19 [facility] y Aspirate/Bod Medical y Center Fluid/Tissue Microbiolog Culture: CSF 02[place] w/Gram St[place] /2010 [facility] BODY FLUIDS Protein CSF 39.0 15 - 45 02/19 Normal [facility] Center BODY FLUIDS Glucose CSF 70.0 45 - 80 02/19 Normal [facility] Center BODY FLUIDS WBC CSF 1.0 0 - 5 02/19 Normal [facility] Center BODY FLUIDS Color CSF Light Red >Colorless 02/19 [place] *ABN* /2010 Medical (02/19/2011 11:00:00) ?? Center BODY FLUIDS Clarity CSF Slight >Clear 02/19 ABN [place] *ABN* Medical (02/19/2011 11:00:00) ?? Center BODY FLUIDS Supernat CSF Colorless >Colorless 02/19 Normal [facility] (02/19/2011 11:00:00) ? Medical Center BODY FLUIDS RBC CSF 2885.0 0 - 0 02/19 [facility] Medical Center BODY FLUIDS Tube Num CSF xxxxxxx 02/19 [place] (02/19/2011 11:00:00) ?? Medical Center CHEMISTRY POC A Glu 107.0 65 - 110 02/19 Normal Medical Center CHEMISTRY POC A K 3.2 3.5 - 5.1 02/19 LOW [facility] CHEMISTRY POC A Ca Ion 1.1 1.16 - 02/19 LOW [place] 1. [facility] CHEMISTRY POC A LA 0.7 0.5 - 2.2 02/19 Normal [facility] CHEMISTRY POC A Source ART 02/19 NA [facility] CHEMISTRY POC A pH 7.35 7.35 - 02/19 LOW [place] 7. [facility] CHEMISTRY POC A Temp 37.0 02/19 NA [facility] CHEMISTRY POC A BE -3.0 -2-2 - 2 02/19 LOW [facility] CHEMISTRY POC A PCO2 41.0 35 - 45 02/19 Normal [facility] CHEMISTRY POC A PO2 404.0 80 - 100 02/19 [facility] CHEMISTRY POC A HCO3 23.0 22 - 26 02/19 Normal [facility] CHEMISTRY POC A Na 140.0 135 - 145 02/19 Normal [facility] CHEMISTRY POC A O2 Sat 100.0 95.0 - 02/19 Normal [place] 100.0 [facility] Center CHEMISTRY POC A Hct 29.0 36.0 - 02/19 LOW [place] 48.0 [facility] BLOOD BANK ABO/Rh O NEG 02/19 Unknown [facility] RESULTS [facility] Center BLOOD BANK Antibody Negative 02/19 Normal [facility] RESULTS Scrn (02/19/2011 10:33:00) ?? Medical Center CHEMISTRY POC A K 3.7 3.5 - 5.1 02/19 Normal [facility] CHEMISTRY POC A Ca Ion 1.1 1.16 - 02/19 LOW [place] 1. Medical Center CHEMISTRY POC A Glu 118.0 65 - 110 02/19 HI [facility] CHEMISTRY POC A LA 1.0 0.5 - 2.2 02/19 Normal Medical [facility] CHEMISTRY POC A Na 136.0 135 - 145 02/19 Normal [facility] CHEMISTRY POC A pH 7.43 7.35 - 02/19 Normal [place] 7.45 Medical Center CHEMISTRY POC A PO2 381.0 80 - 100 02/19 [facility] CHEMISTRY POC A BE -1.0 -2-2 - 2 02/19 Normal Medical [facility] CHEMISTRY POC A HCO3 23.0 22 - 26 02/19 Normal [facility] CHEMISTRY POC A O2 Sat 100.0 95.0 - 02/19 Normal [place] 100.0 Medical Center CHEMISTRY POC A PCO2 34.0 35 - 45 02/19 LOW [facility] CHEMISTRY POC A Temp 37.0 02/19 NA Medical Center CHEMISTRY POC A Source ART 02/19 NA Medical Center CHEMISTRY POC A Hct 34.0 36.0 - 02/19 LOW [place] 48.0 Medical Center CHEMISTRY AGAP 12.0 10.0 - 02/19 Normal 20.0 Medical Center CHEMISTRY Sodium Lvl 141.0 135 - 145 02/19 Normal Medical Center CHEMISTRY BUN 12.0 7 - 22 02/19 Normal Medical Center CHEMISTRY Creatinine 0.6 0.5 - 1.4 02/19 Normal [facility] Center CHEMISTRY CO2 24.0 24 - 32 02/19 Normal Medical Center CHEMISTRY Calcium Lvl 7.9 8.5 - 10.5 02/19 LOW Medical [facility] CHEMISTRY Potassium 4.0 3.5 - 5.1 02/19 Normal [facility] Center CHEMISTRY Chloride Lvl 109.0 95 - 109 02/19 Normal Medical Center CHEMISTRY Glucose Lvl 99.0 02/19 NA <sup>8</sup>I T ex nterpretive Medical Data: Center Reference Ranges : 0 - 7 days : 41 - 90 mg/dL 7 days - 150 yrs : 70 - 99 mg/dL (fasting), based on the clinical recommendatio ns of the [employer]. HEMATOLOGY Lymphocytes 2.4 1.0 - 5.5 02/19 [place] [facility] HEMATOLOGY Monocytes # 0.7 0.0 - 0.8 02/19 [facility] [place] [facility] HEMATOLOGY Basophils # 0.0 0.0 - 0.2 02/19 [facility] [place] [facility] HEMATOLOGY Eosinophils 0.6 0.0 - 0.5 02/19 [facility] [place] # /2010 [facility] HEMATOLOGY Segs-Bands # 2.4 1.5 - 8.1 02/19 Normal [place] /2010 [facility] Center HEMATOLOGY Monocytes 10.9 2.0 - 12.0 02/19 Normal /2010 Medical Center HEMATOLOGY Basophils 0.8 0.0 - 1.0 02/19 Normal /2010 Medical Center HEMATOLOGY Eosinophils 9.4 0.0 - 4.0 02/19 [facility] [place] /[place] [facility] HEMATOLOGY Lymphocytes 39.3 20.0 - 02/19 Normal [place] 40.0 /2010 [facility] Center HEMATOLOGY Segs 39.6 45.0 - 02/19 LOW [place] 75.0 /2010 [facility] HEMATOLOGY MPV 8.2 7.4 - 10.4 02/19 Normal [facility] HEMATOLOGY Platelet 159.0 133 - 450 02/19 Normal [facility] HEMATOLOGY MCH 32.9 27.0 - 02/19 [facility] [place] 31.0 /2010 [facility] HEMATOLOGY MCV 94.8 81.0 - 02/19 Normal [place] 99.0 /2010 [facility] HEMATOLOGY MCHC 34.7 32.0 - 02/19 Normal [place] 36.0 /2010 [facility] HEMATOLOGY RDW 16.4 11.5 - 02/19 [facility] [place] 14.5 [facility] HEMATOLOGY Hgb 10.7 12.0 - 02/19 [facility] [place] 16.0 /2010 [facility] HEMATOLOGY RBC 3.26 4.20 - 02/19 LOW [place] 5.40 /2010 [facility] HEMATOLOGY Hct 30.9 36.0 - 02/19 LOW [place] 48.0 /2010 [facility] HEMATOLOGY WBC 6.2 3.7 - 10.4 02/19 Normal [facility] HEMATOLOGY INR 1.0 0.85 - 02/19 Normal <sup>[place]sup> [place] 1.[place] Interpretive Medical Data: Center RECOMMENDED RANGES FOR PROTIME INR: 2.0-3.0 for most medical and surgical thromboemboli c states. 2.5-3.5 for artificial heart valves and recurrent embolism. INR SHOULD BE USED ONLY FOR PATIENTS ON STABLE ANTICOAGULANT THERAPY. HEMATOLOGY PT 13.2 12.0 - 02/19 Normal [place] 14.7 /2010 [facility] HEMATOLOGY PTT 30.3 22.9 - 02/19 Normal <sup>[place]</sup> [place] 35.8 /2010 Interpretive Medical Data: Heparin Center Therapeutic Range: 57 - 92 Seconds BEDSIDE Gluc POC 142.0 65 - 110 02/19 [place] <sup>1</sup>I [facility] GLUCOSE [facility] nterpretive Medical TESTING Data: Center Upper Reportable Limit: 200 mg/dL. BEDSIDE Comment1 Notify 02/19 NA [facility] GLUCOSE RN/ Medical TESTING Center BEDSIDE Gluc POC 153.0 65 - 110 02/19 [place] <sup>2</sup>I [facility] GLUCOSE [facility] nterpretive Medical TESTING Data: Center Upper Reportable Limit: 200 mg/dL. BEDSIDE Comment1 Notify 02/19 NA [facility] GLUCOSE RN/ Medical TESTING Center BEDSIDE Gluc POC 149.0 65 - 110 02/19 [place] <sup>3</sup>I [facility] GLUCOSE [facility] nterpretive Medical TESTING Data: Center Upper Reportable Limit: 200 mg/dL. BEDSIDE Comment1 Notify 02/18 NA [facility] GLUCOSE RN/ Medical TESTING Center HEMATOLOGY MCV 94.3 81.0 - 02/18 Normal [place] 99.0 /2010 Medical Center HEMATOLOGY Hct 33.1 36.0 - 02/18 LOW [place] 48.0 /2010 Medical Center HEMATOLOGY RDW 16.6 11.5 - 02/18 [facility] [place] 14.5 Medical Center HEMATOLOGY MCH 32.8 27.0 - 02/18 [facility] [place] 31.0 /2010 Medical Center HEMATOLOGY MCHC 34.7 32.0 - 02/18 Normal [place] 36.0 /2010 Medical Center HEMATOLOGY MPV 7.9 7.4 - 10.4 02/18 Normal Medical [facility] HEMATOLOGY Platelet 152.0 133 - 450 02/18 Normal Medical [facility] HEMATOLOGY WBC 6.4 3.7 - 10.4 02/18 Normal Medical [facility] HEMATOLOGY RBC 3.51 4.20 - 02/18 LOW [place] 5.40 /2010 Medical Center HEMATOLOGY Hgb 11.5 12.0 - 02/18 LOW [place] 16.0 /2010 Medical Center HEMATOLOGY MPV 8.1 7.4 - 10.4 02/15 Normal Medical [facility] HEMATOLOGY MCH 32.7 27.0 - 02/15 HI [place] 31.0 /2010 Medical Center HEMATOLOGY MCV 95.1 81.0 - 02/15 Normal [facility] [place] 99.0 /2010 Medical Center HEMATOLOGY MCHC 34.3 32.0 - 09 Normal [place] 36.0 /2010 Medical Center HEMATOLOGY Platelet 117.0 133 - 450 09 LOW [facility] [place] [facility] HEMATOLOGY RDW 16.5 11.5 - 09 HI [place] 14.5 /2010 Medical Center HEMATOLOGY WBC 12.9 3.7 - 10.4 02/15 [facility] HEMATOLOGY Hct 34.1 36.0 - 09 LOW [place] 48.0 /2010 Medical Center HEMATOLOGY Hgb 11.7 12.0 - 09 LOW [place] 16.0 /2010 Medical Center HEMATOLOGY RBC 3.58 4.20 - 02/15 LOW [place] 5.40 /2010 Medical Center HEMATOLOGY Basophils # 0.1 0.0 - 0.2 02/15 [place] [facility] HEMATOLOGY Eosinophils 0.4 0.0 - 0.5 02/15 [place] # /2010 [facility] HEMATOLOGY Monocytes # 0.6 0.0 - 0.8 02/15 [place] [facility] HEMATOLOGY Monocytes 4.8 2.0 - 12.0 02/15 Normal Medical [facility] HEMATOLOGY Lymphocytes 26.8 20.0 - 02/15 Normal [place] 40.0 /2010 Medical Center HEMATOLOGY Lymphocytes 3.5 1.0 - 5.5 02/15 [place] # /2010 [facility] HEMATOLOGY Segs-Bands # 8.3 1.5 - 8.1 02/15 [facility] [place] [facility] HEMATOLOGY Basophils 0.8 0.0 - 1.0 02/15 Normal [place] [facility] HEMATOLOGY Eosinophils 3.0 0.0 - 4.0 02/15 [place] [facility] HEMATOLOGY Segs 64.6 45.0 - 02/15 Normal [place] 75.0 Medical Center CHEMISTRY Globulin 3.1 2.0 - 4.0 02/13 Normal [place] [facility] CHEMISTRY Albumin Lvl 2.7 3.5 - 5.0 02/13 LOW Medical [facility] CHEMISTRY Total 5.8 6.4 - 8.4 02/13 LOW [place] Protein [facility] Center CHEMISTRY B/C Ratio 43.0 6 - 25 02/13 [facility] Medical Center CHEMISTRY A/G Ratio 0.9 0.7 - 1.6 02/13 Normal [facility] CHEMISTRY ALT 52.0 0 - 65 02/13 Normal [facility] CHEMISTRY Alk Phos 183.0 39 - 136 02/13 [facility] CHEMISTRY eGFR >60.0 02/13 NA <sup>6</sup>R [facility] Medical Comment: Center Expected eGFR for >20 yr. age group: >=60 ml/min/1.73 sq m The eGFR calculation is not valid in or for persons < 18 years of age. From [employer] Kid[employer] Education [employer] (NKDEP) CHEMISTRY AGAP 16.9 10.0 - 02/13 Normal [facility] CHEMISTRY Calcium Lvl 8.5 8.5 - 10.5 02/13 [facility] CHEMISTRY Bili Total 0.6 0.2 - 1.3 02/13 Normal [facility] CHEMISTRY AST 49.0 0 - 37 02/13 [facility] CHEMISTRY Chloride Lvl 97.0 95 - 109 02/13 Normal [facility] CHEMISTRY Potassium 4.9 3.5 - 5.1 02/13 Normal <sup>5</sup>R [facility] Medical Comment: Center Specimen Moderately Hemolyzed. CHEMISTRY Creatinine 0.4 0.5 - 1.4 02/13 LOW [facility] CHEMISTRY Sodium Lvl 134.0 135 - 145 02/13 [facility] CHEMISTRY Glucose Lvl 109.0 02/13 NA <sup>9</sup>I [facility] nterpretive Medical Data: Center Reference Ranges : 0 - 7 days : 41 - 90 mg/dL 7 days - 150 yrs : 70 - 99 mg/dL (fasting), based on the clinical recommendatio ns of the [employer]. CHEMISTRY BUN 17.0 7 - 22 02/13 Normal [facility] Center CHEMISTRY CO2 25.0 24 - 32 02/13 Normal [facility] CHEMISTRY AGAP 18.6 10.0 - 02/12 Normal [facility] CHEMISTRY Calcium Lvl 8.3 8.5 - 10.5 02/12 LOW [facility] CHEMISTRY Glucose Lvl 63.0 02/12 NA <sup>10</sup> T ex Interpretive Medical Data: Center Reference Ranges : 0 - 7 days : 41 - 90 mg/dL 7 days - 150 yrs : 70 - 99 mg/dL (fasting), based on the clinical recommendatio ns of the [employer]. CHEMISTRY BUN 19.0 7 - 22 02/12 Normal Medical Center CHEMISTRY Creatinine 0.7 0.5 - 1.4 02/12 Normal [facility] CHEMISTRY Sodium Lvl 135.0 135 - 145 02/12 Normal Medical Center CHEMISTRY Chloride Lvl 97.0 95 - 109 02/12 Normal [facility] Center CHEMISTRY Potassium 3.6 3.5 - 5.1 02/12 Normal [facility] Center CHEMISTRY CO2 23.0 24 - 32 02/12 LOW [facility] HEMATOLOGY Monocytes # 1.0 0.0 - 0.8 02/12 [facility] HEMATOLOGY Basophils # 0.1 0.0 - 0.2 02/12 Normal Medical [facility] HEMATOLOGY Eosinophils 0.2 0.0 - 0.5 02/12 [place] [facility] HEMATOLOGY Lymphocytes 4.9 1.0 - 5.5 02/12 [place] [facility] HEMATOLOGY Basophils 0.7 0.0 - 1.0 02/12 Normal [facility] HEMATOLOGY Segs-Bands # 12.2 1.5 - 8.1 02/12 [facility] HEMATOLOGY Monocytes 5.5 2.0 - 12.0 02/12 Normal Medical [facility] HEMATOLOGY Eosinophils 1.1 0.0 - 4.0 02/12 [facility] [place] [facility] HEMATOLOGY Segs 66.2 45.0 - 02/12 Normal [place] 75.0 Medical Center HEMATOLOGY Lymphocytes 26.5 20.0 - 02/12 Normal [place] 40.0 Medical Center CHEMISTRY Magnesium 1.8 1.8 - 2.4 02/11 Normal [facility] CHEMISTRY AST 57.0 0 - 37 02/11 [facility] CHEMISTRY Total 6.8 6.4 - 8.4 02/11 Normal [facility] CHEMISTRY Albumin Lvl 3.2 3.5 - 5.0 02/11 LOW [facility] Center CHEMISTRY Globulin 3.6 2.0 - 4.0 02/11 Normal [facility] CHEMISTRY A/G Ratio 0.9 0.7 - 1.6 02/11 Normal [facility] CHEMISTRY ALT 59.0 0 - 65 02/11 Normal [facility] Center CHEMISTRY Alk Phos 258.0 39 - 136 02/11 HI [facility] CHEMISTRY Bili Total 0.7 0.2 - 1.3 02/11 Normal [facility] Center CHEMISTRY B/C Ratio 45.0 6 - 25 02/11 [facility] HEMATOLOGY Anisocyte 1+ >None Seen 02/11 ABN [facility] *ABN* /2010 Medical (02/11/2011 14:00:00) ?? Center BEDSIDE Comment2 Sliding 02/11 NA [facility] GLUCOSE Scale Medical TESTING Center STOOL TESTS Fecal None Seen 4 02/11 Normal <sup>4</sup>I [facility] Leukocyte (02/11/2011 00:59:00) ?? nterp retive Medical Data: A Value Center of None Seen, Rare, or Few is Normal. BEDSIDE Comment2 Sliding 02/11 [facility] GLUCOSE Scale Medical TESTING Center CHEMISTRY eGFR 48.0 02/10 NA <sup>7</sup>R esult Medical Comment: Center Expected eGFR for >20 yr. age group: >=60 ml/min/1.73 sq m The eGFR calculation is not valid in or for persons < 18 years of age. From [employer] Education [employer] (NKDEP) CHEMISTRY Globulin 3.0 2.0 - 4.0 02/10 Normal [facility] Center CHEMISTRY A/G Ratio 1.0 0.7 - 1.6 02/10 Normal [facility] Center CHEMISTRY B/C Ratio 23.0 6 - 25 02/10 Normal [facility] Center CHEMISTRY AST 31.0 0 - 37 02/10 Normal [facility] CHEMISTRY Albumin Lvl 3.1 3.5 - 5.0 02/10 LOW [facility] CHEMISTRY ALT 64.0 0 - 65 02/10 Normal Medical Center CHEMISTRY Total 6.1 6.4 - 8.4 02/10 LOW [facility] Center CHEMISTRY Bili Total 0.5 0.2 - 1.3 02/10 Normal Medical [facility] CHEMISTRY Alk Phos 235.0 39 - 136 02/10 [facility] HEMATOLOGY Polychrom Slight >None Seen 02/08 Normal [facility] (02/08/2011 05:19:00) ?? Medical Center HEMATOLOGY Hypochrom Slight >None Seen 02/08 Normal [facility] (02/08/2011 05:19:00) ?? Medical Center HEMATOLOGY Anisocyte 1+ >None Seen 02/08 ABN [facility] *ABN* /2010 Medical (02/08/2011 05:19:00) ?? Center HEMATOLOGY Plt Morph Normal 02/08 Normal [facility] (02/08/2011 05:19:00) ?? Medical Center BEDSIDE Comment2 Sliding 02/07 NA [facility] GLUCOSE Medical TESTING Center HEMATOLOGY Bands 0.0 0.0 - 11.0 02/06 [facility] BLOOD BANK Antibody Negative 02/05 Normal [facility] RESULTS Scrn (02/05/2011 14:12:00) ?? [facility] BLOOD BANK ABO/Rh O NEG 02/05 Unknown [facility] CHEMISTRY Total CK 64.0 12 - 191 02/04 Normal [facility] CHEMISTRY Troponin-I 0.03 0.00 - 02/04 Normal [facility] 0.40 [facility] CHEMISTRY Total CK 71.0 12 - 191 02/03 Normal [facility] CHEMISTRY Troponin-I 0.05 0.00 - 02/03 Normal [facility] 0.40 Medical Center Microbiolog Culture: 02/02 [facility] y Urine [facility] URINALYSIS UA ?? 0.1 - 1.0 02/02 [facility] Urobilinogen /2010 [facility] URINALYSIS UA Sq Epi None Seen 02/02 [facility] URINALYSIS UA Leuk Est Negative >Negative 02/02 Normal [place] [facility] (02/02/2011 17:21:00) ?? [facility] URINALYSIS UA RBC <1.0 0 - 2 02/02 [facility] URINALYSIS UA Bacteria Occasional /HPF >None Seen 02/02 NA [facility] * Medical (02/02/2011 17:21:00) ?? Center URINALYSIS UA Nitrite Negative >Negative 02/02 Normal [place] [facility] (02/02/2011 17:21:00) ?? Medical Center URINALYSIS UA Ketones Negative mg/dL >Negative 02/02 [facility] * Medical (02/02/2011 17:21:00) ?? Center URINALYSIS UA Bili Negative >Negative 02/02 [facility] * Medical (02/02/2011 17:21:00) ?? Center URINALYSIS UA Blood Negative >Negative 02/02 Normal [facility] (02/02/2011 17:21:00) ?? Medical Center URINALYSIS UA Protein Negative mg/dL >Negative 02/02 Normal [facility] (02/02/2011 17:21:00) ?? Medical Center URINALYSIS UA Glucose Negative mg/dL >Negative 02/02 [facility] Medical (02/02/2011 17:21:00) ?? Center URINALYSIS UA Color Light Yellow >Yellow 02/02 NA [facility] * Medical (02/02/2011 17:21:00) ?? Center URINALYSIS UA Turbidity Clear >Clear 02/02 Normal [facility] (02/02/2011 17:21:00) ?? Medical Center URINALYSIS UA Spec Grav 1.004 <<=1.030 02/02 Normal [facility] Center URINALYSIS UA pH 7.0 5.0 - 8.0 02/02 Normal [facility] CHEMISTRY T4 Free 0.98 0.76 - 02/01 Normal [facility] 1.46 /2010 Medical Center CHEMISTRY TSH 0.711 0.360 - 02/01 Normal [facility] 3.740 /2010 Medical Center IMMUNOLOGY Prealbumin 19.4 18.0 - 02/01 Normal [facility] 45.0 /2010 Medical Center BEDSIDE Comment1 Notify 01/31 NA [facility] GLUCOSE RN/MD Medical TESTING Center BEDSIDE Gluc POC 109.0 65 - 110 01/31 Normal <sup>2</sup>I [facility] GLUCOSE Lifscn nterpretive Medical TESTING Data: Center Upper Reportable Limit: 200 mg/dL. CHEMISTRY Phosphorus 2.9 2.5 - 4.5 01/31 Normal [facility] CHEMISTRY CO2 24.0 24 - 32 01/31 Normal [facility] CHEMISTRY Calcium Lvl 7.7 8.5 - 10.5 01/31 LOW [facility] CHEMISTRY Glucose Lvl 100.0 01/31 NA <sup>5</sup>I T ex nterpretive Medical Data: Center Reference Ranges : 0 - 7 days : 41 - 90 mg/dL 7 days - 150 yrs : 70 - 99 mg/dL (fasting), based on the clinical recommendatio ns of the [employer]. CHEMISTRY Sodium Lvl 138.0 135 - 145 01/31 Normal [facility] CHEMISTRY Potassium 3.9 3.5 - 5.1 01/31 Normal [facility] CHEMISTRY BUN 17.0 7 - 22 01/31 Normal [facility] CHEMISTRY Creatinine 0.7 0.5 - 1.4 01/31 Normal [facility] CHEMISTRY Chloride Lvl 100.0 95 - 109 01/31 Normal [facility] CHEMISTRY AGAP 17.9 10.0 - 01/31 Normal [facility] 20.0 [facility] CHEMISTRY Magnesium 1.9 1.8 - 2.4 01/31 Normal [facility] CHEMISTRY Ca Norm 1.13 1.16 - 01/31 [facility] 1. [facility] CHEMISTRY Ca Ion 1.09 1.16 - 01/31 [facility] 1.30 [facility] CHEMISTRY Ca Norm mgdL 4.52 4.65 - 01/31 [facility] 5.20 [facility] CHEMISTRY Ca Ion mgdL 4.36 4.65 - 01/31 [facility] 5.20 [facility] HEMATOLOGY Large Plt Slight >None Seen 01/31 [facility] *ABN* /2010 Medical (01/31/2011 03:36:00) ?? Center HEMATOLOGY Monocytes # 1.4 0.0 - 0.8 01/31 [facility] HEMATOLOGY Myelocytes 3.0 <<=0.0 01/31 [facility] Center HEMATOLOGY Segs-Bands # 18.6 1.5 - 8.1 01/31 [facility] Center HEMATOLOGY Lymphocytes 1.6 1.0 - 5.5 01/[place] # /2010 [facility] HEMATOLOGY Metamyelocyt 2.0 0.0 - 1.0 01/31 [place] [facility] /2010 [facility] Center HEMATOLOGY Lymphocytes 7.0 20.0 - 01/31 LOW [place] 40.0 /2010 Medical Center HEMATOLOGY Monocytes 6.0 2.0 - 12.0 01/31 Normal [place] /2010 Medical Center HEMATOLOGY Segs 79.0 45.0 - 01/31 HI [place] 75.0 /2010 Medical Center HEMATOLOGY Bands 2.0 0.0 - 11.0 01/31 Normal Medical Center HEMATOLOGY Hypochrom Slight >None Seen 01/31 Normal [facility] (01/31/2011 03:36:00) ?? [facility] HEMATOLOGY Polychrom Slight >None Seen 01/31 Normal [facility] (01/31/2011 03:36:00) ?? [facility] HEMATOLOGY Rouleaux Present >None Seen 01/31 ABN [facility] *ABN* /2010 Medical (01/31/2011 03:36:00) ?? Center HEMATOLOGY Atypical 0.0 <<=0.0 01/31 Normal [facility] Lymphs /2010 Medical Center HEMATOLOGY Promyelocyte 1.0 <<=0.0 01/31 [place] /2010 Medical Center HEMATOLOGY RDW 15.3 11.5 - 01/31 [facility] [place] 14.5 /2010 Medical Center HEMATOLOGY MPV 10.1 7.4 - 10.4 01/31 Normal [place] [facility] HEMATOLOGY Platelet 166.0 133 - 450 01/31 Normal /2010 Medical Center HEMATOLOGY Hct 37.3 36.0 - 01/31 Normal [place] 48.0 /2010 Medical Center HEMATOLOGY MCHC 32.7 32.0 - 01/31 Normal [place] 36.0 /2010 Medical Center HEMATOLOGY MCV 94.8 81.0 - 01/31 Normal [place] 99.0 /2010 Medical Center HEMATOLOGY MCH 31.0 27.0 - 01/31 Normal [place] 31.0 /2010 Medical Center HEMATOLOGY WBC 23.0 3.7 - 10.4 01/31 HI [place] /2010 Medical Center HEMATOLOGY RBC 3.93 4.20 - 01/31 LOW [place] 5.40 /2010 Medical Center HEMATOLOGY Hgb 12.2 12.0 - 01/31 Normal [facility] [place] 16.0 /2010 Medical Center BEDSIDE Gluc POC 188.0 65 - 110 01/31 HI <sup>3</sup>I [facility] GLUCOSE Lifscn nterpretive Medical TESTING Data: Center Upper Reportable Limit: 200 mg/dL. BEDSIDE Comment1 Notify 01/31 NA [facility] GLUCOSE RN/ Medical TESTING Center BEDSIDE Gluc POC 233.0 65 - 110 01/31 [place] <sup>4</sup>I [facility] GLUCOSE Lifscn nterpretive Medical TESTING Data: Center Upper Reportable Limit: 200 mg/dL. BEDSIDE Comment1 Notify 01/30 NA [facility] GLUCOSE RN/ Medical TESTING Center CHEMISTRY Albumin Lvl 2.7 3.5 - 5.0 01/29 LOW [facility] CHEMISTRY Phosphorus 3.7 2.5 - 4.5 01/29 Normal [facility] CHEMISTRY Ca Ion mgdL 4.2 4.65 - 01/29 LOW [facility] 5. Medical Center CHEMISTRY Ca Norm mgdL 4.24 4.65 - 01/29 LOW [facility] 5. Medical Center CHEMISTRY Ca Ion 1.05 1.16 - 01/29 LOW [place] 1.30 Medical Center CHEMISTRY Ca Norm 1.06 1.16 - 01/29 LOW [facility] 1.30 Medical Center CHEMISTRY Magnesium 2.4 1.8 - 2.4 01/29 Normal [facility] CHEMISTRY AGAP 15.0 10.0 - 01/29 Normal [facility] 20.0 Medical Center CHEMISTRY BUN 23.0 7 - 22 01/29 [facility] Medical Center CHEMISTRY Creatinine 0.8 0.5 - 1.4 01/29 Normal [facility] Center CHEMISTRY Glucose Lvl 232.0 01/29 NA <sup>6</sup>I T ex nterpretive Medical Data: Center Reference Ranges : 0 - 7 days : 41 - 90 mg/dL 7 days - 150 yrs : 70 - 99 mg/dL (fasting), based on the clinical recommendatio ns of the [employer]. CHEMISTRY Potassium 4.0 3.5 - 5.1 01/29 Normal [facility] CHEMISTRY Sodium Lvl 144.0 135 - 145 01/29 Normal Medical Center CHEMISTRY Chloride Lvl 109.0 95 - 109 01/29 Normal [facility] CHEMISTRY CO2 24.0 24 - 32 01/29 Normal [facility] CHEMISTRY Calcium Lvl 7.8 8.5 - 10.5 01/29 [place] [facility] HEMATOLOGY Large Plt Slight >None Seen 01/29 ABN [place] *ABN* /2010 Medical (01/29/2011 10:02:00) ?? Center HEMATOLOGY Polychrom Slight >None Seen 01/29 Normal [facility] (01/29/2011 10:02:00) ?? /2010 Medical Center HEMATOLOGY Atypical 0.0 <<=0.0 01/29 Normal [facility] Lymphs [facility] HEMATOLOGY NRBC 1.0 01/29 NA [facility] HEMATOLOGY Segs 81.0 45.0 - 01/29 HI [place] 75.0 Medical Center HEMATOLOGY Lymphocytes 9.0 20.0 - 01/29 LOW [place] 40.0 Medical Center HEMATOLOGY Monocytes 5.0 2.0 - 12.0 01/29 Normal [facility] HEMATOLOGY Myelocytes 1.0 <<=0.0 01/29 HI [facility] HEMATOLOGY Metamyelocyt 2.0 0.0 - 1.0 01/29 [facility] HEMATOLOGY Bands 2.0 0.0 - 11.0 01/29 Normal [facility] HEMATOLOGY Monocytes # 1.0 0.0 - 0.8 01/29 [place] [facility] HEMATOLOGY Lymphocytes 1.8 1.0 - 5.5 01/29 [place] [facility] HEMATOLOGY Segs-Bands # 16.3 1.5 - 8.1 01/29 [facility] HEMATOLOGY MPV 9.4 7.4 - 10.4 01/29 Normal [facility] Center HEMATOLOGY Hct 33.9 36.0 - 01/29 LOW [place] 48.0 Medical Center HEMATOLOGY MCV 94.0 81.0 - 01/29 Normal [place] 99.0 Medical Center HEMATOLOGY MCH 31.5 27.0 - 01/29 HI [place] 31.0 Medical Center HEMATOLOGY MCHC 33.6 32.0 - 01/29 Normal [place] 36.0 Medical Center HEMATOLOGY RDW 16.1 11.5 - 08/31 [facility] [place] 14.5 /2010 Medical Center HEMATOLOGY Platelet 178.0 133 - 450 01/29 Normal Medical Center HEMATOLOGY WBC 19.6 3.7 - 10.4 01/29 [facility] Center HEMATOLOGY Hgb 11.4 12.0 - 01/29 [facility] [place] 16.0 Medical Center HEMATOLOGY RBC 3.61 4.20 - 01/29 [facility] [place] 5.40 Medical Center CHEMISTRY AGAP 14.2 10.0 - 01/28 Normal [place] 20.0 Medical Center CHEMISTRY Chloride Lvl 116.0 95 - 109 01/28 [facility] Center CHEMISTRY Sodium Lvl 152.0 135 - 145 01/28 [facility] Center CHEMISTRY Potassium 3.2 3.5 - 5.1 01/28 [facility] Center CHEMISTRY CO2 25.0 24 - 32 01/28 Normal Medical Center CHEMISTRY Calcium Lvl 7.5 8.5 - 10.5 01/28 [facility] [place] [facility] CHEMISTRY Glucose Lvl 57.0 01/28 NA <sup>7</sup>I T ex nterpretive Medical Data: Center Reference Ranges : 0 - 7 days : 41 - 90 mg/dL 7 days - 150 yrs : 70 - 99 mg/dL (fasting), based on the clinical recommendatio ns of the [employer]. CHEMISTRY BUN 21.0 7 - 22 01/28 Normal Medical Center CHEMISTRY Creatinine 0.7 0.5 - 1.4 01/28 [facility] CHEMISTRY Phosphorus 3.2 2.5 - 4.5 01/28 Normal Medical Center CHEMISTRY Magnesium 2.2 1.8 - 2.4 01/28 [facility] CHEMISTRY Ca Norm 1.09 1. - 01/28 [facility] [place] 1. Medical Center CHEMISTRY Ca Ion 1.06 1. - 01/28 [facility] [place] 06.30 Medical Center CHEMISTRY Ca Norm mgdL 4.36 4.65 - 01/28 [facility] [place] 5. Medical Center CHEMISTRY Ca Ion mgdL 4.24 4.65 - 01/28 [facility] [place] . Medical Center HEMATOLOGY Platelet 144.0 133 - 450 01/28 Normal [facility] HEMATOLOGY MPV 10.4 7.4 - 10.4 01/28 Normal Medical Center HEMATOLOGY MCH 31.1 27.0 - 08 HI [place] 31.0 /2010 Medical Center HEMATOLOGY MCHC 33.3 32.0 - 01/28 Normal [place] 36.0 /2010 Medical Center HEMATOLOGY RDW 16.0 11.5 - 01/28 HI [place] 14.5 /2010 Medical Center HEMATOLOGY Hct 32.3 36.0 - 08 LOW [place] 48.0 /2010 Medical Center HEMATOLOGY MCV 93.5 81.0 - 01/28 Normal [place] 99.0 /2010 Medical Center HEMATOLOGY RBC 3.45 4.20 - 01/28 LOW [place] 5.40 /2010 Medical Center HEMATOLOGY Hgb 10.7 12.0 - 01/28 LOW [place] 16.0 /2010 Medical Center HEMATOLOGY WBC 20.1 3.7 - 10.4 01/28 [facility] Medical Center HEMATOLOGY Eosinophils 0.0 0.0 - 4.0 01/28 [place] [facility] HEMATOLOGY Monocytes 4.1 2.0 - 12.0 01/28 Normal Medical Center HEMATOLOGY Segs-Bands # 18.0 1.5 - 8.1 01/28 [facility] HEMATOLOGY Basophils 0.0 0.0 - 1.0 01/28 Normal [facility] HEMATOLOGY Lymphocytes 6.6 20.0 - 01/28 LOW [place] 40.0 /2010 Medical Center HEMATOLOGY Basophils # 0.0 0.0 - 0.2 01/28 [place] [facility] HEMATOLOGY Eosinophils 0.0 0.0 - 0.5 01/28 [place] # [facility] HEMATOLOGY Monocytes # 0.8 0.0 - 0.8 01/28 [place] [facility] HEMATOLOGY Lymphocytes 1.3 1.0 - 5.5 01/28 [place] # [facility] HEMATOLOGY Segs 89.3 45.0 - 01/28 [facility] [place] 75.0 /2010 Medical Center CHEMISTRY Osmolality 317.0 280 - 300 01/27 [facility] Medical Center CHEMISTRY POC A pH 7.56 7.35 - 08 [facility] [place] 7.45 [facility] CHEMISTRY POC A PO2 150.0 80 - 100 01/27 [facility] CHEMISTRY POC A Source ART 01/27 NA [facility] CHEMISTRY POC A Temp 37.0 01/27 NA [facility] CHEMISTRY POC A BE 4.0 -2-2 - 2 01/27 [facility] CHEMISTRY POC A O2 Sat 100.0 95.0 - 01/27 Normal [place] 100.0 [facility] CHEMISTRY POC A HCO3 25.0 22 - 26 01/27 Normal [facility] CHEMISTRY POC A PCO2 28.0 35 - 45 01/27 CRIT [facility] CHEMISTRY Osmolality 305.0 280 - 300 01/27 HI [facility] HEMATOLOGY PTT 25.2 22.9 - 01/27 Normal <sup>12</sup> [place] 35. Interpretive Medical Data: Heparin Center Therapeutic Range: 57 - 92 Seconds HEMATOLOGY PT 15.8 12.0 - 01/27 [facility] 14. Medical [facility] HEMATOLOGY INR 1.26 0.85 - 01/27 [place] <sup>9</sup>I [place] 1. nterpretive Medical Data: Center RECOMMENDED RANGES FOR PROTIME INR: 2.0-3.0 for most medical and surgical thromboemboli c states. 2.5-3.5 for artificial heart valves and recurrent embolism. INR SHOULD BE USED ONLY FOR PATIENTS ON STABLE ANTICOAGULANT THERAPY. HEMATOLOGY Eosinophils 0.0 0.0 - 4.0 01/27 Normal [facility] HEMATOLOGY Basophils 0.2 0.0 - 1.0 01/27 Normal [facility] HEMATOLOGY Eosinophils 0.0 0.0 - 0.5 01/27 [place] [facility] HEMATOLOGY Basophils # 0.0 0.0 - 0.2 01/27 Normal [facility] CHEMISTRY Osmolality 306.0 280 - 300 01/26 [facility] HEMATOLOGY Basophils # 0.0 0.0 - 0.2 01/26 Normal a s [facility] HEMATOLOGY Eosinophils 0.0 0.0 - 4.0 01/26 Normal s [facility] HEMATOLOGY Eosinophils 0.0 0.0 - 0.5 01/26 [place] [facility] HEMATOLOGY Basophils 0.1 0.0 - 1.0 01/26 Normal [facility] HEMATOLOGY PTT 29.8 22.9 - 01/26 Normal <sup>13</sup> [place] 35.8 Interpretive Medical Data: Heparin Center Therapeutic Range: 57 - 92 Seconds HEMATOLOGY PT 15.4 12.0 - 01/26 HI [place] 14.7 /2010 Medical Center HEMATOLOGY INR 1.22 0.85 - 01/26 [place] <sup>10</sup> [facility] 1.17 Interpretive Medical Data: Center RECOMMENDED RANGES FOR PROTIME INR: 2.0-3.0 for most medical and surgical thromboemboli c states. 2.5-3.5 for artificial heart valves and recurrent embolism. INR SHOULD BE USED ONLY FOR PATIENTS ON STABLE ANTICOAGULANT THERAPY. CHEMISTRY POC A Glu 108.0 65 - 110 01/26 Normal [facility] CHEMISTRY POC A LA 0.8 0.5 - 2.2 01/26 Normal [facility] CHEMISTRY POC A Ca Ion 1.17 1.16 - 01/26 Normal [facility] 1.30 [facility] CHEMISTRY POC A K 3.6 3.5 - 5.1 01/26 Normal [facility] CHEMISTRY POC A Na 140.0 135 - 145 01/26 Normal [facility] CHEMISTRY POC A PO2 80.0 80 - 100 01/26 Normal [facility] CHEMISTRY POC A PCO2 40.0 35 - 45 01/26 Normal [facility] CHEMISTRY POC A Source ART 01/26 NA [facility] CHEMISTRY POC A Temp 37.0 01/26 NA [facility] CHEMISTRY POC A pH 7.4 7.35 - 01/26 Normal [place] 7.45 [facility] CHEMISTRY POC A Hct 34.0 36.0 - 01/26 LOW [place] 48.0 [facility] CHEMISTRY POC A BE 0.0 -2-2 - 2 01/26 Normal [facility] CHEMISTRY POC A O2 Sat 96.0 95.0 - 01/26 Normal [place] 100.0 [facility] CHEMISTRY POC A HCO3 25.0 22 - 26 01/26 Normal [facility] CHEMISTRY POC A O2 Sat 96.0 95.0 - 01/26 Normal [place] 100.0 [facility] CHEMISTRY POC A K 3.6 3.5 - 5.1 01/26 Normal [facility] CHEMISTRY POC A LA 0.8 0.5 - 2.2 01/26 Normal [facility] CHEMISTRY POC A Glu 113.0 65 - 110 01/26 [facility] CHEMISTRY POC A Source ART 01/26 NA Medical Center CHEMISTRY POC A Temp 37.0 01/26 NA [facility] CHEMISTRY POC A HCO3 25.0 22 - 26 01/26 Normal Medical Center CHEMISTRY POC A PO2 79.0 80 - 100 01/26 LOW [facility] CHEMISTRY POC A PCO2 38.0 35 - 45 01/26 Normal [facility] CHEMISTRY POC A pH 7.42 7.35 - 01/26 Normal 7.45 [facility] CHEMISTRY POC A BE 0.0 -2-2 - 2 01/26 Normal [facility] CHEMISTRY POC A Ca Ion 1.22 1.16 - 01/26 Normal 1. [facility] CHEMISTRY POC A Na 138.0 135 - 145 01/26 Normal [facility] CHEMISTRY POC A Hct 36.0 36.0 - 01/26 Normal 48.0 [facility] CHEMISTRY POC A Hct 41.0 36.0 - 01/26 Normal 48.0 [facility] CHEMISTRY POC A Na 140.0 135 - 145 01/26 Normal [facility] CHEMISTRY POC A Ca Ion 1.05 1.16 - 01/26 LOW 1. [facility] CHEMISTRY POC A K 3.6 3.5 - 5.1 01/26 Normal [facility] CHEMISTRY POC A LA 0.8 0.5 - 2.2 01/26 Normal [facility] CHEMISTRY POC A Glu 107.0 65 - 110 01/26 Normal [facility] BLOOD BANK Antibody Negative 01/26 Normal [facility] RESULTS Scrn (01/26/2011 09:00:00) ?? Medical Center BLOOD BANK ABO/Rh O NEG 01/26 Unknown [place] [facility] HEMATOLOGY PTT 28.2 22.9 - 01/26 Normal <sup>14</sup> [place] 35.8 Interpretive Medical Data: Heparin Center Therapeutic Range: 57 - 92 Seconds HEMATOLOGY INR 1.24 0.85 - 01/26 [place] <sup>11</sup> [place] [facility] 1.17 Interpretive Medical Data: Center RECOMMENDED RANGES FOR PROTIME INR: 2.0-3.0 for most medical and surgical thromboemboli c states. 2.5-3.5 for artificial heart valves and recurrent embolism. INR SHOULD BE USED ONLY FOR PATIENTS ON STABLE ANTICOAGULANT THERAPY. HEMATOLOGY PT 15.6 12.0 - 01/26 [facility] 14.7 Medical Center CHEMISTRY CK MB Index 0.4 0.0 - 2.5 01/25 Normal Medical Center CHEMISTRY CK MB 1.1 0.5 - 3.6 01/25 Normal Medical Center CHEMISTRY Myoglobin 141.0 - 72 01/25 [facility] Medical Center CHEMISTRY Troponin-T <0.01 0.000 - 01/25 Normal [facility] 0. Medical Center CHEMISTRY Total CK 256.0 - 191 01/25 [facility] Center CHEMISTRY Total CK 219.0 - 191 01/25 [facility] Center CHEMISTRY Troponin-T <0.01 0.000 - 01/25 Normal [facility] 0. Medical Center CHEMISTRY CK MB Index 0.7 0.0 - 2.5 01/25 Normal [facility] CHEMISTRY CK MB 1.5 0.5 - 3.6 01/25 Normal [facility] CHEMISTRY Lactic Acid 2.4 0.5 - 2.2 01/25 [facility] Lvl Medical Center HEMATOLOGY Target Cell Slight >None Seen 01/25 [facility]N [place] [facility] *ABN* /2010 Medical (01/24/2011 19:16:00) ?? Center HEMATOLOGY Bands 2.0 0.0 - 11.0 01/25 Normal Medical Center HEMATOLOGY Plt Morph Normal 01/25 [facility] (01/24/2011 19:16:00) ?? Medical Center CHEMISTRY Troponin-T <0.01 0.000 - 01/24 Normal [facility] 0.100 [facility] CHEMISTRY Myoglobin 60.0 - 72 01/24 Normal Medical Center CHEMISTRY Total CK 34.0 - 01/24 Normal [facility] BLOOD BANK Antibody Negative 01/24 Normal [facility] RESULTS Scrn (01/24/2011 03:15:00) ?? [facility] BLOOD BANK ABO/Rh O NEG 01/24 Unknown [place] RESULTS /2010 Medical Center BLOOD BANK Platelet Product available 01/24 Normal [facility] RESULTS product (01/24/2011 03:15:00) ?? [facility] BLOOD BANK RBC product Product available 01/24 Normal [place] RESULTS (01/24/2011 03:15:00) ?? Medical Center CHEMISTRY CK MB Index 1.2 0.0 - 2.5 01/23 Normal [facility] CHEMISTRY CK MB 1.2 0.5 - 3.6 01/23 Normal [facility] CHEMISTRY Hgb A1C 8.7 01/23 NA [...] CHEMISTRY Troponin-I <0.02 0.00 - 01/23 Normal [facility] 0.40 [facility] URINALYSIS UA Ketones TR 01/23 [facility] URINALYSIS UA ?? 0.1 - 1.0 01/23 [facility] Urobilinogen [facility] URINALYSIS UA Sq Epi Occasional /LPF >Few 01/23 [facility] *NA* Medical (01/23/2011 05:29:00) ?? Center URINALYSIS UA WBC <1.0 0 - 5 01/23 Normal [facility] URINALYSIS UA Mucus Few /LPF >None Seen 01/23 [facility] Medical (01/23/2011 05:29:00) ?? Center URINALYSIS UA RBC <1.0 0 - 2 01/23 Normal Medical Center URINALYSIS UA Protein Negative mg/dL >Negative 01/23 Normal [facility] (01/23/2011 05:29:00) ?? [facility] URINALYSIS UA Nitrite Negative >Negative 01/23 Normal [place] (01/23/2011 05:29:00) ?? [facility] URINALYSIS UA Leuk Est Negative >Negative 01/23 Normal [place] (01/23/2011 05:29:00) ?? [facility] URINALYSIS UA Bili Negative >Negative 01/23 NA [place] *NA* /2010 Medical (01/23/2011 05:29:00) ?? Center URINALYSIS UA Glucose 150 mg/dL >Negative 01/23 [facility]N [place] *ABN* /2010 Medical (01/23/2011 05:29:00) ?? Center URINALYSIS UA Blood Negative >Negative 01/23 Normal [facility] (01/23/2011 05:29:00) ?? [facility] URINALYSIS UA pH 5.0 5.0 - 8.0 01/23 Normal /2010 [facility] URINALYSIS UA Spec Grav 1.01 <<=1.030 01/23 Normal [facility] URINALYSIS UA Turbidity Clear >Clear 01/23 Normal [facility] (01/23/2011 05:29:00) ?? [facility] URINALYSIS UA Color Yellow >Yellow 01/23 NA [facility] *NA* Medical (01/23/2011 05:29:00) ?? Center BACTERIAL - MRSA by PCR Negative 1 01/23 Normal <sup>1</sup>I [facility] SEROLOGY (01/23/2011 05:00:00) ? nterpr etive Medical Data: Center INTERPRETATIO N: Negative..... .No [...] an infectious diseases specialist. Microbiolog Culture: 01/23 [facility] y [facility] r Screen Pathology Reports No Data Provided for This Section Diagnostic Reports Report Value Date Source Brain wo contrast CT EXAM: CT HEAD WITHOUT CONTRAST 03/02/2019 [facility] DATE: 03/02/2019 14:52 CDT Center INDICATION: 74 years old Female patient with his tory of - new onset vertigo. TECHNIQUE: Multiple axial im ages were obtained through the head from vertex to the skull base. Axial bone algorithm reconstruction images are provided. COMPARISON: MRI brain 02/22/2019 FINDINGS: Redemonstration of postopera tive changes of the right pterional craniectomy with underlying areas of encephalomalacia in the right frontal and temporal lobes. 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 No acute intracranial hemorrhage is identified. Left frontal approach ventri bruna shunt catheter is again identified, unchanged in position. The ventricles are unchanged in size. Persistent 0.4 cm oqro-er-mgnyl midline shift. IMPRESSION: 1. No CT evidence of acute intracranial abnormality. Redemonstration of areas of encephalomalacia in the right frontal and temporal lobes. Persistent 0.4 cm [id number]-[id number] midline shift. The ventricles are unchanged in size. Chest 1view DX EXAM: XR CHEST 1 VIEW 02/27/2019 [facility] edical DATE: 02/27/2019 13:37 CDT Center INDICATION: - Check for por t placement due to body habitus - area is marked with paper clip COMPARISON: AP chest 02/26/2019 TECHNIQUE: AP chest. FINDINGS: Lines, tubes and hardware: L eft subclavian Port-A-Cath with tip in unchanged position overlying the left subclavian vein. Stable position of catheter overlying the right axilla with its tip projecting o jimmy the right lateral ribs. This may represent a catheter overlying the patient's body, although clinical correlation is recommended. Stable position of ventricular peritoneal shunt overlying the left neck and hemithorax. Lungs and pleura: Pulmonary vascularity is normal. Mild bibasilar subsegmental atelectasis. Trace left pleural effusion. No pneumothorax is identified. Heart and mediastinum: The c ardiac silhouette is normal for technique. The mediastinal contours are normal. Bones, soft tissues: No acute abnormality. IMPRESSION: 1. Left subclavian venous p ort tip overlying the subclavian vein. Unchanged since previous chest radiograph 02/18/2019. 2. Stable position of steven ter overlying the right axilla with its tip projecting over the right lateral ribs. This may represent a catheter overlying the patient's body, although clinical correlation is recommended. 3. Trace left pleural effusion. 4. Mild bibasilar subsegmental atelectasis. Chest 1view DX EXAM: XR CHEST 1 VIEW 02/26/2019 [facility] edical DATE: 02/26/2019 13:33 CDT Center INDICATION: - port-a-cath placement, evaluate f or pnx. TECHNIQUE: Chest 1 view FINDINGS: Comparison is made to February 09. Cardiomediastinal silhouette is unchanged. Left-sided ventriculoperitoneal shunt. There is a new left subclavian Port-A-Cath with tip over the left side of the mediastinum presumably in the left brachio cephalic vein. Part of a catheter overlies the r ight axilla. Small left pleural effusion. Tiny right pleural effusion. No definite pneumothorax on this semierect radiograph. Left lower lobe platelike atelectasis. IMPRESSION: 1. The tip of the left subcl dariusz Port-A-Cath overlies the left side of the mediastinum presumably in the left subclavian vein. Consider ABG for confirmation of venous positioning. 2. There is a catheter over the right axilla which could be external or internal to the patient such as a mid PICC line but please correlate. 3. Small bilateral pleural effusions. 4. Left lower lobe plate like atelectasis. Brain w/wo contrast EXAM: MRI BRAIN WITH AND WITHOUT CONTRAST [facility] MRI DATE: 02/22/2019 1740 hours Cente r INDICATION: 74-year-old fema le with diabetes, meningioma status post resection complicated by Pseudomonas infection of the ankle in right eye blindness, with myasthenia gravis. COMPARISON: Comparison is made to 09/14/2018. TECHNIQUE: Multiplanar, mult isequence MRI of the brain with and without intravenous contrast. IV contrast: 18 mL's of MultiHance.. FINDINGS: The planum sphenoidale extra -axial mass demonstrates no significant interval increase in size now measuring 36 x 13 x 26 mm (image 91, series 1201 and image 88, series 1202) and transverse by AP by CC dimensions. No significant interval incr ease in size of the left greater than right subdural fluid collection. There is persistent abnormal diffuse enhancement of the dura without nodular focus. No abnormal restricted diffusion to suggest recent ischemia. A frontal craniotomy changes and right frontotemporal lobe encephalomalacia associated with prior right frontal mass resection with hemorrhagic staining are again noted. There is no acute intracranial h emorrhage. The basal cistern s and the sulci are unremarkable. The major intracranial flow voids are maintained. The tip of the left transfro ntal shunt catheter terminates within the right frontal horn. The ventricular sizes are stable compared to the prior exam. There is no evidence of hydrocephalus. The bone marrow signal is no rmal. There is mild opacification of the bilateral mastoid air cells, right greater than left. The paranasal sinuses predominantly clear. IMPRESSION: 1. No significant interval change in appearance of the planum sphenoidale meningioma compared to prior exam of 09/14/2018. 2. No significant interval change of subdural fluid collections, left greater than right with associated diffuse pachymeningeal enhancement. PICC insert with or PROCEDURES: 02/21/2019 [facility] ical without port VR Foreign body retrieval (microwire) Center Midline venous catheter placement Procedural Personnel Attending physician(s): Abel Johnson MD Fellow physician(s): None Resident physician(s): None Advanced practice provider(s): None Pre-procedure diagnosis: Right heel abscess/infe ction Post-procedure diagnosis: Same Indication: Administration of intravenous medica tions Additional clinical history: None Complications: No immediate complications. IMPRESSION: Successful removal of previo usly placed microwire using fluoroscopic guidance. The existing wire tip was lodged within a small right thoracic venous collateral, which was noted on CT of the chest dated 09/13/2018. Insertion of right-sided marko l-lumen midline venous catheter, with tip in the expected location of the right axilla. Plan: The catheter may be used immediately. PROCEDURE SUMMARY: - Microwire removal with fluoroscopic guidance - Midline venous catheter insertion with fluoros copic guidance - Additional procedure(s): None PROCEDURE DETAILS: Pre-procedure Consent: Informed consent fo r the procedure including risks, benefits and alternatives was obtained and time-out was performed prior to the procedure. Preparation (MIPS): The site was prepared and draped using all elements of maximal sterile barrier technique including sterile gloves, sterile gown, cap, mask, large sterile sheet, sterile ultrasound pr obe cover, hand hygiene and cutaneous antisepsis with 2% chlorhexidine. Medical reason for site preparation exception (M IPS): Not applicable Anesthesia/sedation Level of anesthesia/sedation: No sedation Anesthesia/sedation administ ered by: Independent trained observer under attending supervision with continuous monitoring of the patient's level of consciousness and physiologic status Total intra-service sedation time (minutes): 0 Access Local anesthesia was adminis tered. The existing access microwire and sheath were used for the remainder of the procedure. Test Operator radiographic imaging d emonstrates a microwire with its tip in a right thoracic collateral vein, as seen on prior CT of the chest 09/13/2018. Venography Indication for venography: D iagnostic angiography - A prior study is available, but there is inadequate visualization of the anatomy and/or pathology. Vein catheterized: Right axillary/subclavian vei n Findings: Venography demonst rates the right thoracic collateral as well as the main portion of the right axillary/subclavian vein. Catheter placement The catheter was trimmed to appropriate length and placed into the vein under fluoroscopic guidance via a peel-away sheath. Catheter tip location was fluoroscopically verified and a permanent image was stored. A sterile dressing was applied. Catheter placed: [employer] Catheter size ([place]): 5 Catheter intravascular length (cm): 22 Catheter flush: Normal saline Catheter securement technique: Non-absorbable bahena ture Contrast Contrast agent: Visipaque 320 Contrast volume (mL): 10 Radiation Dose Fluoroscopy time (minutes): 2.2 Reference air kerma (mGy): 10.3 Kerma area product (Gy-cm2): 4.53 Additional Details Additional description of procedure: None Equipment details: None Specimens removed: Existing right arm microwire and sheath Estimated blood loss (mL): Less than 10 Standardized report: [email or web address] Attestation Signer name: Abel Johnson MD I attest that I was present for the entire procedure. I reviewed the stored images and agree with the report as written. Foreign body PROCEDURES: 02/21/2019 [facility] retrieval from Foreign body retrieval (microwire) Center artery/vein VR Midline venous catheter placement Procedural Personnel Attending physician(s): Abel Johnson MD Fellow physician(s): None Resident physician(s): None Advanced practice provider(s): None Pre-procedure diagnosis: Right heel abscess/infe ction Post-procedure diagnosis: Same Indication: Administration of intravenous medica tions Additional clinical history: None Complications: No immediate complications. IMPRESSION: Successful removal of previo usly placed microwire using fluoroscopic guidance. The existing wire tip was lodged within a small right thoracic venous collateral, which was noted on CT of the chest dated 09/13/2018. Insertion of right-sided marko l-lumen midline venous catheter, with tip in the expected location of the right axilla. Plan: The catheter may be used immediately. PROCEDURE SUMMARY: - Microwire removal with fluoroscopic guidance - Midline venous catheter insertion with fluoros copic guidance - Additional procedure(s): None PROCEDURE DETAILS: Pre-procedure Consent: Informed consent fo r the procedure including risks, benefits and alternatives was obtained and time-out was performed prior to the procedure. Preparation (MIPS): The site was prepared and draped using all elements of maximal sterile barrier technique including sterile gloves, sterile gown, cap, mask, large sterile sheet, sterile ultrasound pr obe cover, hand hygiene and cutaneous antisepsis with 2% chlorhexidine. Medical reason for site preparation exception (M IPS): Not applicable Anesthesia/sedation Level of anesthesia/sedation: No sedation Anesthesia/sedation administ ered by: Independent trained observer under attending supervision with continuous monitoring of the patient's level of consciousness and physiologic status Total intra-service sedation time (minutes): 0 Access Local anesthesia was adminis tered. The existing access microwire and sheath were used for the remainder of the procedure. Test Operator radiographic imaging d emonstrates a microwire with its tip in a right thoracic collateral vein, as seen on prior CT of the chest 09/13/2018. Venography Indication for venography: D iagnostic angiography - A prior study is available, but there is inadequate visualization of the anatomy and/or pathology. Vein catheterized: Right axillary/subclavian vei n Findings: Venography demonst rates the right thoracic collateral as well as the main portion of the right axillary/subclavian vein. Catheter placement The catheter was trimmed to appropriate length and placed into the vein under fluoroscopic guidance via a peel-away sheath. Catheter tip location was fluoroscopically verified and a permanent image was stored. A sterile dressing was applied. Catheter placed: [employer] Catheter size ([place]ayan): 5 Catheter intravascular length (cm): 22 Catheter flush: Normal saline Catheter securement technique: Non-absorbable bahena ture Contrast Contrast agent: Visipaque 320 Contrast volume (mL): 10 Radiation Dose Fluoroscopy time (minutes): 2.2 Reference air kerma (mGy): 10.3 Kerma area product (Gy-cm2): 4.53 Additional Details Additional description of procedure: None Equipment details: None Specimens removed: Existing right arm microwire and sheath Estimated blood loss (mL): Less than 10 Standardized report: [email or web address] Attestation Signer name: Abel Johnson MD I attest that I was present for the entire procedure. I reviewed the stored images and agree with the report as written. Spine lumbar w/wo EXAM: MRI LUMBAR SPINE WITHOUT AND WITH CONTRA ST 02/20/2019 [facility] contrast MRI DATE: 02/22/2019 7:25 PM CDT Cent er INDICATION: - Pt with MG wi th multiple falls at home; with TTP to C and L spine. COMPARISON: Conventional radiographs 01/23/2011 TECHNIQUE: Multiplanar, mult isequence MR imaging of the lumbar spine prior to and after contrast administration. IV contrast: 18 mL MultiHance FINDINGS: The patient is seen to have a transitional lumbosacral junction based on prior conventional radiography and CT imaging. Correlation with a prior chest CT indicates that hypoplastic ribs are present at t he 12th thoracic segment and , therefore, the patient only has 4 non-rib bearing lumbar vertebra. Although the lowest intervertebral disc space is well formed, there is partial sacralization present of this vertebral segment on the left. This lower intervertebral di sc space will be numbered as L5-S1 for the purposes of this report for consistency with prior imaging. The conus terminates at L1-L 2 (normal). It demonstrates normal signal intensity. There is no abnormal thickening of the filum. The vertebral alignment is n ormal. The vertebral heights are maintained. A rounded area of lower signal intensity is identified on T1 and T2-weighted images centrally within the L4 vertebra without enha ncement on postcontrast imag ing. Otherwise, there is normal bone marrow signal intensity. Intervertebral disc heights and signal intensity are preserved for a patient this age. AP diameter of the lower spi nal canal is diffusely diminished as a consequence of short pedicles. There is prominence of the epidural fat posteriorly indicative of epidural lipomatosis contributing to further canal stenosis. Degenerative changes are also present as follows : L3-L4: A diffuse bulge of th e disc annulus combines with redundancy of the ligamenta flava to produce mild to moderate spinal stenosis and bilateral subarticular zone narrowing. Elevated T2 signal within the facet joints is indicative of synovitis. L4-L5: A central disc protru willie is superimposed upon a bulge of the disc. This causes ventral deformity of the thecal sac without significant stenosis although there is mild left subarticular zone encr oachment due to combination of disc material and facet arthropathy. Conversely, however, the facet arthropathy is more prominent on the right where there is considerable fluid accumulation within the raimundo int space without edema of t he adjacent articular surfaces to indicate an acute phase arthritis or infection. L5-S1: No focal disc patholo gy is evident. Elevated T2 signal at the superior disc margin is felt to be due to delamination of the disc caused by normal aging rather than an annular fissure. No foraminal stenoses are present . The visualized paraspinous s oft tissues are unremarkable. There is no hydronephrosis bilaterally. IMPRESSION: 1. Atypical numbering scheme of the lumbar spine. 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 2. No abnormal enhancement o f the intervertebral disc spaces or vertebra in a pattern to indicate discitis osteomyelitis. 3. Central disc protrusion a t L4-L5 produces subarticular zone narrowing on the left with potential for impingement on the traversing L5 root. 4. Degenerative changes of t he lower lumbar spine, not pronounced for age and not causing significant spinal stenosis at the other levels. Foot w/wo contrast EXAM: MR RIGHT FOOT WITH AND WITHOUT CONTRAST 02/20/2019 [facility] MRI DATE: 02/20/2019 20:28 CDT Center INDICATION: - Persistent WB C and pain; unimproving heel infection; re-eval for osteomyelitis COMPARISON: None. TECHNIQUE: Multiplanar MR imaging of the foot wi th and without contrast. Area imaged: Entire foot IV contrast: 18 mL MultiHance. FINDINGS: BONES: No decreased T1 signal , abn ormal enhancement or edema within the visualized bones to indicate the presence of acute osteomyelitis. Mild mid foot osteoarthritis is present. SOFT TISSUES: The fluid collection at the plantar aspect of the heel has become more organized and demonstrates thick rim enhancement measuring approximately 3.5 x 2.7 x 1.6 cm, AP X TV X CC. There is adjacent subcut aneous edema and enhancement compatible with ariela lulitis. MUSCLES: There is edema of the intrinsic muscles of the f oot. TENDONS: No focal tendon signal abnormality, or evidence for tenosynovitis. IMPRESSION: 1. No evidence for acute osteomyelitis of the f oot. 2. Early abscess formation at the plantar aspect of heel measuring 3.5 x 2.7 x 1.6 cm. Spine cervical w/wo EXAM: MRI CERVICAL SPINE WITHOUT AND WIT H CONTRAST 02/20/2019 [facility] contrast MRI DATE: 02/22/2019 6:43 PM CDT [facility] er INDICATION: - Pt with MG wi th multiple falls at home; with TTP to C and L spine., Septicemia and sepsis with tenderness to palpation in the cervical and lumbar region COMPARISON: 07/07/2012 TECHNIQUE: Multiplanar, mult isequence pre and postcontrast imaging of the cervical spine. IV contrast: 18 mL MultiHance FINDINGS: The craniovertebral junction has a normal appear ance. The cerebellar tonsils are in the normal positio n. Slight anterolisthesis of C7 is present with respect to T1 as a consequence of disc degeneration. The vertebral alignment is normal. The vertebral heights are maintained. Mild heterogeneity of the marro w is felt to be age-related. Some T2 signal elevation within the marrow to the left of midline at C7 has a central speckled appearance and T1 heterogeneity felt to indicate the presence of a hemangioma with limited enhancement pos tcontrast. There is normal bone marrow signal intensity otherwise. Intervertebral disc heights and signal intensity are preserved for age from C2 through C7. There are prominent anterior osteophytes from C3 inferiorly. Slight anterolisthesis of C7 with respect to T1 is noted. Posterior bulging of the disc annulus is seen at several levels including C2-C3, C3-C4, and C6-C7. The latter is the level demo nstrating the greatest degree of spinal stenosis primarily consequent to the combination of findings including redundancy of the ligamenta flava at this location. A mild degr ee of cord deformity is note d. In spite of this, the cervical spinal cord demonstrates normal signal intensity. Diffuse atrophy of all of th e paraspinous musculature of the cervical region is present. Given the diffuse idiopathic skeletal hyperostosis, this likely indicates limited mobility. Incidental imaging of the up per thoracic spinal canal demonstrates presence of prominent epidural fat in this region which displaces the spinal cord anteriorly within the canal. The intracranial contents ar e only partially included and persistent abnormality of the intrasellar compartment is seen but this is better described on the contemporaneous brain MR dictated separately. Dural enhancement is also better visualized on t he latter exam. IMPRESSION: 1. No imaging findings to in dicate the presence of osteomyelitis discitis in this patient with history of sepsis. 2. Degenerative changes of t he cervical region superimposed upon a developmentally small spinal canal produce severe spinal stenosis throughout the mid and lower cervical region, a finding which has not visibly progressed. 3. No cord signal abnormalit y to indicate interval development of compressive myelopathy. 4. Excessive epidural fat wi thin the upper thoracic spinal canal indicative of epidural lipomatosis. 5. Atrophy of the paraspinou s musculature of the neck may be consequent to reduce cervical motion related to diffuse idiopathic skeletal hyperostosis. ED Abdomen/Pelvis IV EXAM: CT ABDOMEN AND PELVIS WITH CONTRAST 0 02/19/2019 [facility] contrast only CT DATE: 02/19/2019 8:17 CDT Center INDICATION: - new abdominal pain; with persiste nt leukocytosis; ADDITIONAL INFORMATION: None. COMPARISON: None. TECHNIQUE: Volumetric CT acq uisition of the abdomen and pelvis after the intravenous administration contrast. Axial, coronal and sagittal reconstructions. Postcontrast phases: Venous and delayed. IV contrast: 100 mL Omnipaque 350 Enteric contrast: None. DLP: 2313 mGy-cm FINDINGS: Lines, tubes and hardware: V entriculoperitoneal sent with the tip terminating within the right upper quadrant. Lower thorax: Trace bilateral pleural effusions. Liver: No hepatomegaly. No focal hepatic lesions . Biliary tree: Mild extrahepa tic biliary ductal dilation. CBD measures 1.0 cm in caliber. Gallbladder: Surgically absent. Pancreas: Fatty infiltration. No mass or ductal dilation. Spleen: No splenomegaly. Adrenals: No nodularity or irregularity. Kidneys and ureters: * Bilateral renal parenchymal atrophy. * 0.7 cm hypodensity in the inferior pole of right kidney (series 12 image 38) and additional tiny hypodensity within the right kidney. * Severe left renal cortica l atrophy with 1.8 cm exophytic cyst in the inferior pole of left kidney. Additional small cystic lesions are identified within the left. * Scarring of the superior pole of left kidney, likely related to prior insults or infection. Bladder: Normal. Reproductive organs: * Anteverted uterus with a 1.5 cm enhancing lesion in the uterine fundus (series 12 image 61) * No adnexal abnormalities. Gastrointestinal tract: Stomach: Normal. Small bowel: Normal in caliber without evidence of obstruction or ileus. Colon: Normal. Appendix: Not seen. No inflammation. Peritoneum, mesentery and re troperitoneum: No free air, ascites or loculated fluid. Lymph nodes: No pathologically enlarged abdomina l or pelvic lymph nodes. Vasculature: * No evidence of aortic aneurysm or dissection. * Mild atherosclerotic calcification of aorta a nd its branches. Bones: * No acute abnormality. * No suspicious lytic or blastic osseous lesion s. Soft tissues: Small fat-containing umbilical her davey. IMPRESSION: 1. No acute abdominal or pelvic processes ident ified. 2. 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 3. Bilateral kidneys are atrophic with small cy sts. 4. Small uterine fibroid. 5. Trace bilateral pleural effusions. RECOMMENDATIONS: None. Foot w contrast CT EXAM: CT RIGHT FOOT WITH CONTRAST 02/19/2019 [facility] DATE: 02/19/2019 at 0844 hours Ce nter INDICATION: Right heel absc ess s/p I\\T\\D with persistent leukocytosis and pain. eval for recurrent infection. COMPARISON: Foot CT of 02/08/2019, foot MRI of . TECHNIQUE: Volumetric CT of the right foot is acquired with contrast. Axial, coronal and sagittal images are provided. IV contrast: 100 mL Omnipaque 350, also given fo r the concurrent abdomen CT DLP: 519.47 mGy-cm. FINDINGS: Bones: There is no periostea l reaction, focal erosion or cortical destruction to indicate the presence of acute osteomyelitis. Calcaneal spurs are again identified. Joint spaces are preserved. Small dorsal osteophytes are most evident at the midfoot. Soft tissues: Focal soft tis tone swelling is again identified over the plantar aspect of the calcaneus, similar in distribution to the prior MRI, with this region measuring approximately 1.4 cm craniocau ирина, 2.5 cm AP and 2.5 cm me diolateral. Lobulated margins are present, with surrounding granulation tissue and suspected early rim enhancement, however with persistent benign interspersed fat and septat ions consistent with incompl ete localization. Thickening of the adjacent plantar fascia is present. No radiopaque foreign body or subcutaneous emphysema. Scattered vascular calcifications are present. IMPRESSION: 1. Persistent prominent area of subcutaneous edema and phlegmon at the plantar aspect of the foot measuring approximately 2.5 x 2.5 x 1.4 cm, demonstrating areas of early organization, although this lik robbie does not yet represent a fully drainable abs cess. 2. No osteolysis or periosti tis of the underlying calcaneus is identified by CT. MRI is most sensitive for osteomyelitis if indicated. Spine lumbar w EXAM: CT LUMBAR SPINE WITH CONTRAST 02/17/2019 [facility] contrast CT DATE: 02/17/2019 Center INDICATION: 'h/o MG, mengiom a - h/o MG, mengioma with multiple falls with TTP of C and L spine.' ADDITIONAL INFORMATION: None COMPARISON: None. TECHNIQUE: Routine postcontrast CT imaging of th e lumbar spine. IV contrast: 100 mL Omnipaque FINDINGS: The inferior most lumbar typ e vertebral body is referred to as L5. This presumes that the 12th ribs are hypoplastic. Straightening of the normal lumbar lordosis. No spondylolisthesis. Vertebral body heights are w ell maintained. There is no aggressive osseous lesion or fracture. Evaluation of the spinal canal is limited due to modality. The included retroperitoneal structures are unremarkable. The paraspinal soft tissues are normal. Evaluation of the individual levels: L1-L2: Normal. L2-L3: Normal. L3-L4: No disc herniation. M ild bilateral facet arthropathy. Mild spinal canal narrowing. No neural foraminal narrowing. L4-L5: Moderate disc bulging . Moderate bilateral facet arthropathy. Moderate spinal canal narrowing. Mild neural foraminal narrowing. L5-S1: Normal. IMPRESSION: 1. The inferior most lumbar type vertebral body is referred to as L5, which presumes that the 12th ribs are hypoplastic. 2. Degenerative changes in the lumbar spine most notable at L4-L5 where there is moderate spinal canal stenosis and neural foraminal narrowing from disc bulge, facet arthropathy, and ligament flavum thickening. Spine cervical w EXAM: CT CERVICAL SPINE WITH CONTRAST [address] [facility] contrast CT DATE: 02/17/2019 Center INDICATION: 74 years old Fem mariana patient with history of meningioma, meningoma with multiple falls with TTP of C and L spine.. COMPARISON: CT Scan of the soft tissue neck date d 08/18/2018 TECHNIQUE: Volumetric CT ac quisition of the cervical spine with contrast. Computer reformatted coronal and sagittal images are also provided. Axial images are available in both bone and soft tissue algorithm. FINDINGS: Vertebral alignment is alexia l. There is no evidence of acute fracture or subluxation. Note is made of bridging ant erior osteophytes extending from C3 to the level of T1. There are changes of posterior laminectomy at th e level of C2 and C3. Level by level analysis as follows: C2-C3: Preservation of disc height. No evidence of spina canal stenosis. Bilateral moderate bony neural foraminal stenosis from uncovertebral and facet joint hypertrophy. C3-C4: Preservation of disc height. No evidence of spina canal stenosis. Severe right and moderate to severe left neural foramina narrowing from uncovertebral and facet joint hypertrophy. C4-C5: Mild loss of the disc height. Posterior disc osteophyte complex indenting the ventral thecal sac with mild to moderate bony spina canal stenosis. Residual thecal sac measures 7.5 mm in AP dimensi on. Severe right and moderat e left neural foraminal stenosis from uncovertebral and facet joint hypertrophy. C5-C6: Moderate loss of the disc height. Posterior disc osteophyte complex indenting the ventral thecal sac with mild to moderate spinal canal stenosis. Moderate to severe left and moderate right neural foraminal stenosis from uncovertebral and facet joint hypertrophy. C6-C7: Moderate loss of disc height. Posterior disc osteophyte complex indenting the ventral thecal sac causing [id number] spinal canal stenosis. Bilateral severe neural foraminal stenosis from uncovertebral and facet joint hypertrophy. C7-T1: Mild loss of disc hei ght. No evidence of spina canal stenosis. No evidence of significant neural foraminal stenosis. The prevertebral and paraspi nous cervical soft tissues appear grossly unremarkable. IMPRESSION: 1. Moderate cervical spondy litic changes from C4-C5 to the level of C6-C7 with mild to moderate spinal canal and significant neural foraminal stenosis bilaterally as detailed above. 2. Extensive bridging anterior osteophytes from C3-C4 to the level of T1. 3. With continued clinical concern, MRI of the cervical spine without contrast can be useful for evaluation of the cervical spinal cord. Foot wo contrast MRI EXAM: MR RIGHT FOOT WITHOUT CONTRAST 2018 [facility] DATE: 02/12/2019 2:09 PM CDT Cent er INDICATION: - r/o OM COMPARISON: Computed tomogra phy scan of the right foot dated 02/08/2019. Radiographs of the right ankle dated 02/05/2019. TECHNIQUE: Multiplanar MR imaging of the foot wi thout contrast. Area imaged: Midfoot and hindfoot IV contrast: None.. FINDINGS: Motion degraded limited study. BONES: No decreased T1 signal or ed nuzhat within the visualized bones to indicate the presence of acute osteomyelitis. Mild cystic changes are present at the calcaneus near the floor of sinus Tarsi. Mild to moder ate midfoot degenerative changes. Calcaneal enth esophytes are present. SOFT TISSUES: Previously identified collec tion along the subcutaneous lateral aspect of the heel is not seen in the present study. Overlying dressing material is present. There is mild diffuse subcutaneous soft tissue edema. No focal drainable collection seen. MUSCLES: Diffuse high T2 signal of th e intrinsic muscles of the foot may be related to neuropathic changes TENDONS: No focal tendon signal abnormality, or evidence for tenosynovitis. IMPRESSION: 1. No evidence for acute osteomyelitis of the f oot. 2. Diffuse subcutaneous sof t tissue edema without focal drainable collection. Previously identified subcutaneous collection along the plantar lateral aspect of the heel is not seen in the present study. 3. Diffuse high T2 signal o f the intrinsic muscles of the foot is likely related to neuropathic changes. Chest 1view DX EXAM: XR CHEST 1 VIEW 02/09/2019 [facility] DATE: 02/09/2019 7:48 T Center INDICATION: Respiratory distress - sepsis COMPARISON: 02/07/2019 TECHNIQUE: AP chest radiograph IMPRESSION: 1. Cardiomediastinal silhou ette is enlarged, unchanged. Aortic atherosclerotic disease. 2. Prominent lung reticulat ions again seen with peribronchial cuffing suggestive of pulmonary edema. Superimposed infection cannot be excluded. 3. Costophrenic sulci are sharp. 4. Osseous structures are stable. 5. Left-sided D[employer] WORK[employer] shunt is stable compared to pr evious study. Foot wo contrast CT EXAM: CT RIGHT FOOT WITHOUT CONTRAST 019 [facility] DATE: 02/08/2019 7:05 T Center INDICATION: - c/o pain in r ight heel, o/e swollen and tender, ESR and CRP high, white count high, r/o deep seated infection COMPARISON: Radiographs of the right foot and an kle dated 02/05/2019. TECHNIQUE: Volumetric CT acq uisition of the right foot without contrast. Axial, sagittal and coronal reconstructions. IV contrast: None. DLP: 479 mGy-cm. FINDINGS: Bones: Chronic appearing per iosteal reaction is seen along the distal tibial metadiaphysis predominantly along the anteromedial aspect, incompletely imaged. Minimal periosteal reaction is also seen armen g the anterior aspect of the distal fibular diaphysis. There is no acute fracture or erosive/destructive changes. Diffuse osteopenia is present. Prominent posterior and plantar calcaneal enthesophytes a re present. There are mild t o moderate midfoot degenerative changes involving the intertarsal and tarsometatarsal joints. Soft tissues: There is focal soft tissue swelling and subcutaneous fluid seen along the plantar lateral aspect of the heel measuring approximately 2.5 x 2.5 x 1 cm. Soft tissue edema is seen along the p lantar aspect of the heel. N o radiopaque foreign body or subcutaneous emphysema. No pneumarthrosis. IMPRESSION: 1. Incompletely imaged nons pecific chronic appearing periosteal reaction along the distal tibial metadiaphysis and anterior aspect of the distal fibular diaphysis. No focal erosion or destructive changes seen. 2. Focal soft tissue swelli ng and subcutaneous fluid along the plantar lateral aspect of the heel. Further evaluation is limited by lack of intravenous contrast. Underlying soft tissue inflammatory augusta nges. Consider ultrasound co rrelation for presence of abscess. MRI of the ankle can be obtained if there is clinical concern for acute osteomyelitis. 3. Calcaneal enthesophytes. 4. Mild to moderate midfoot degenerative change s. . Chest 1view DX EXAM: XR CHEST 1 VIEW 02/07/2019 [facility] edical DATE: 02/07/2019 7:28 PM [facility] INDICATION: - shortness of breath COMPARISON: 02/06/2019 TECHNIQUE: AP chest. IMPRESSION: Left-sided D[employer] WORKER shunt in stabl e position. Stable cardiac mediastinal silhouette and atherosclerotic changes in the aorta. Small bilateral pleural effusions. No pneumothorax. Mild bibasilar subsegmental atelectasis. CONCLUSION: 1. Small bilateral pleural effusions. 2. Mild bibasilar subsegmental atelectasis. Upp er lungs are clear. Chest 1view DX EXAM: XR CHEST 1 VIEW 02/06/2019 [facility] edical DATE: 02/06/2019 15:06 T Center INDICATION: - infectious workup for AMS COMPARISON: 02/05/2019 TECHNIQUE: AP chest. IMPRESSION: Left-sided AP shunt is stabl e in position. Stable cardiac mediastinal silhouette. Atherosclerotic changes in the aortic arch. Trace bilateral pleural effusions. No pneumothorax. Mild left lower lobe sub segmental atelectasis. No new lung opacities. St able osseous structures. CONCLUSION: 1. Trace bilateral pleural effusions. 2. Mild left lower lobe subsegmental atelectasi s. No new lung opacities. Wrist complete DX EXAM: XR RIGHT WRIST 3 VIEWS 02/05/2019 [facility] DATE: 02/05/2019 17:36 T Center INDICATION: - fall, severe pain COMPARISON: None TECHNIQUE: PA, lateral and oblique radiographs of the wrist FINDINGS: No acute fracture or malalignment is identified. No soft tissue abnormality is identified. IMPRESSION: No acute abnormality. Ankle 3 views DX EXAM: XR RIGHT ANKLE 3 VIEWS 02/05/2019 [facility] DATE: 02/05/2019 17:36 T Center INDICATION: - fall, severe pain COMPARISON: None TECHNIQUE: AP, oblique and lateral radiographs of the ankle FINDINGS: No acute fracture or malalignment is identified. The ankle mortise is congruent. Incidental note of chronic c uneiform minimal periosteal reactive change of the right distal tibia. Diffuse soft tissue swelling is present. IMPRESSION: No acute bony abnormality. Diffuse soft tissue swelling. Chest 2 views DX EXAM: XR CHEST 2 VIEWS 02/05/2019 [facility] DATE: 02/05/2019 [facility]: Res[facility] distress - SOB COMPARISON: December 27, 2018 TECHNIQUE: AP and lateral chest radiographs IMPRESSION: 1. Cardiomediastinal silhou ette is enlarged, unchanged. Aortic atherosclerotic disease. 2. Prominent lung reticulat ions again seen with peribronchial cuffing suggestive of pulmonary edema. Superimposed infection cannot be excluded. 3. Trace bilateral pleural effusions. 4. Osseous structures are stable. 5. Left-sided [employer] WORKER shunt is stable compared to pr evious study. Chest 1view DX EXAM: XR CHEST 1 VIEW 12/27/2018 [facility] edical DATE: 12/27/2018 3:00 CDT Center INDICATION: - intubated. TECHNIQUE: Chest 1 view FINDINGS: Comparison is made to December 26. Cardiomediastinal silhouette is unchanged. Life support lines and tubes remain in place. There are alveolar opacities in the lungs which have slightly increased. There are small bilateral pleural effusions. IMPRESSION: 1. Bilateral airspace opacit ies have slightly increased and could be due to edema, ARDS or pneumonia. 2. Small bilateral pleural effusions, mostly on the left. Chest 1view DX EXAM: [facility]: 12[facility]26/2018 6:29 T Center INDICATION: - intubated. TECHNIQUE: Chest 1 view FINDINGS: Comparison is made to yesterday. Cardiomediastinal silhouette is unchanged, with aortic arch calcification. Life support lines and tubes remain in place. Small left pleural effusion. Patchy bilateral airspace opacities could be due to edema, ARDS or pneumonia. IMPRESSION: 1. Persistent patchy bilateral airspace disease in the lungs. 2. Small left pleural effusion. Chest 1 v for EXAM: XR CHEST 1 VIEW 12/25/2018 [facility] edical Placement DX DATE: 12/25/2018 3:42 CDT Center INDICATION: Line Placement - Chest 1 view for li ne placement. TECHNIQUE: Chest 1 view FINDINGS: Comparison is made to yesterday. Cardiomediastinal silhouette is unchanged. There are alveolar opacities in the mid to lower lungs with sparing of the apices. There is a left pleural effusion. New right jugular central ve nous catheter with tip over the mid to upper SVC. Other life support lines and tubes remain in place. IMPRESSION: 1. Bilateral airspace opacities could be due to edema, ARDS or pneumonia. 2. Left pleural effusion. 3. New right jugular central venous catheter. Liver US EXAM: US LIVER 12/24/2018 [facility] DATE: 12/24/2018 20:47 T Center INDICATION: -Elevated liver function tests ADDITIONAL INFORMATION: None. COMPARISON: Right upper quad rant abdominal ultrasound of 03/23/2011 computed tomography scan of the abdomen and pelvis of 09/13/2018. TECHNIQUE: Multiplanar sussy mikey and color Doppler ultrasound images of the right upper quadrant of the abdomen. FINDINGS: Liver: Craniocaudal length: 14.3 cm. Normal. Echogenicity: Normal. Surface nodularity: None Mass (size and location): None. Portal vein: 6 mm with hepatopetal flow. Bile ducts: Common bile duct diameter: 6 mm. Mildly prominent, likely from normal variant reservoir effect status post cholecystectomy Intrahepatic ducts: Normal. Gallbladder: Surgically absent Pancreas: No abnormalities of the vi sualized portions of the pancreas are seen. Portions of the pancreas are obscured by bowel gas. Spleen: 9.4 x 2.6 x 2.0 cm w ith no focal abnormalities. Portions of the spleen are obscured by overlying shadowing. Abdominal aorta and IVC: Visualized portions are normal. Ascites: None Pleural effusion: None. IMPRESSION: 1. Status post cholecystect natividad. Mild dilatation of the common bile duct is likely from normal brain reservoir effect status post cholecystectomy. 2. No other abnormalities o f the liver and adjacent structures are seen sonographically. Chest 1view DX EXAM: XR CHEST 1 VIEW 12/24/2018 [facility] DATE: 12/24/2018 20:04 [facility] Center INDICATION: ETT placement, Hypoxia - ETT placeme nt, Hypoxia COMPARISON: Chest radiograph 12/18/2018 TECHNIQUE: AP chest FINDINGS: The tracheal tube placed with tip 3 cm above the jennifer. Dobbhoff tube tip in the proximal stomach. Increase in left retrocardiac opacity. Right central atelectasis. Pulmonary vascularity is n ormal. Unchanged cardiomegaly. No acute bony abn ormality is identified. IMPRESSION: 1. Endotracheal tube tip 3 cm above the jennifer. 2. Increase in left retrocar diac opacity representing atelectasis and/or consolidation. Abdomen 1 v for EXAM: XR ABDOMEN 1 VIEW 12/24/2018 [facility] DATE: 12/24/2018 20:04 CDT Center INDICATION: NGT placement - NGT placement ADDITIONAL INFORMATION: None. COMPARISON: Double radiograph 09/12/2018 TECHNIQUE: AP view of the abdomen. FINDINGS: Lines and tubes: Dobbhoff tu be tip in the distal stomach. Ventriculoperitoneal shunt tube with tip in the right upper quadrant. Lower thorax: Left retrocardiac opacity. Bowel: Normal. Solid organs: No abnormal ma ss or organomegaly seen. No abnormal calcifications found. Bones: No acute bone abnormality. IMPRESSION: 1. Dobbhoff tip in the distal stomach. Chest 2 views DX PROCEDURE: Chest Radiograph. 11/18/2018 JOSUÉ Kelly Clinical Indication: Pneumonia. Comparison: Chest radiograph 09/17/2018. FINDINGS: The chest shows minimal subs egmental atelectasis at the left lung base. No focal consolidation is identified. There is left-sided D[employer] WORKER shunt tubing. There are calcified granulomata in the upper lobes. The cardiac silhouette is up per limits of normal in size. Degenerative change involves the thoracic spine and shoulders. An old distal right clavicle fracture is suspected. IMPRESSION: 1. Minimal left lower lobe subsegmental atelecta sis. [id number] Bone Density DXA 10/21/2018 [facility] [employer] [place] BONE DENSITY ASSESSMENT: 10/21/2018 CLINICAL DATA: Post menopaus al and clinical risk for osteoporosis. 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 /M81.0 Age- Related Osteoporosis Without Current Pathological Fracture FINDINGS: Bone density evaluation was performed 10/21/2018 on the right femur neck using a Hologic unit. The BMD average for the exam is 0.699 g/cm2. The T-score is - 1.40 and the Z-score is 0.50. This matches madelyn yin World Health Organization 's criteria for osteopenia and places the patient at a medium risk for fracture. An additional bone density e valuation was performed 10/21/2018 on the left femur neck using a Hologic unit. The BMD average for the exam is 0.630 g/cm2. The T-score is -2.00 and the Z-score is -0.10. This matches the World Healt h Organization's criteria for osteopenia and places the patient at a medium risk for fracture. An additional bone density e valuation was performed 10/21/2018 on the right total femur area using a Hologic unit. The BMD average for the exam is 0.818 g/cm2. The T-score is -1.00 and the Z-score is 0 .60. This matches the World Health Organization's criteria for normal bone density and places the patient within normal limits of fracture risk. An additional bone density e valuation was performed 10/21/2018 on the left total femur area using a Hologic unit. The BMD average for the exam is 0.851 g/cm2. The T-score is -0.70 and the Z-score is 0. 90. This matches the World Health Organization's criteria for normal bone density and places the patient within normal limits of fracture risk. An additional bone density e valuation was performed 10/21/2018 on the AP L2-L4 region of spine using a Hologic unit. The BMD average for the exam is 1.097 g/cm2. The T-score is 0.20 and the Z-score is 2.40. This matches the [facility] Health Organization's criteria for normal bone density and places the patient within normal limits of fracture risk. FRAX 10 year probability of major osteoporotic fracture is 10% and hip fracture is 1.9%. IMPRESSION: OSTEOPENIA Patient is at medium risk fo r fracture. Patient consult w/primary care provider is recommended. This exam was interpreted at [id number] for CRISPIN Varela 15. 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 ADDITIONAL INFORMATION: Past medical history saba sthenia gravis. COMPARISON: 09/16/2018 modified barium swallow. TECHNIQUE: Oral barium contr ast of differing consistencies was given to the patient to assess swallowing mechanism. The study was performed in conjunction with speech pathology. FLUOROSCOPY TIME: 1 minute 11 seconds SKIN DOSE: 8.50 mGy DISCUSSION: The patient was given barium contrast of differe nt consistencies. Thin barium: Pooling of residue without penetrat ion or aspiration. Pudding barium: Pooling of residue without penet ration or aspiration. Solid with barium: Pooling of residue without pe netration or aspiration. IMPRESSION: 1. Pooling of residue witho ut penetration or aspiration was observed with thin, pudding, and solid consistency barium contrast. 2. Please also see detailed chart note by cristhian francis pathology. Skull 1 view DX EXAM: SKULL 1 view DATE: - Codman's view 2018 [facility] INDICATION: Suspected shunt malfunction. Center TECHNIQUE: lateral [...] DX EXAM: XR CHEST 1 VIEW 09/17/2018 [facility] edical DATE: 09/17/2018 3:00 CDT Center INDICATION: Tube placement/removal/reposition - atlectasis COMPARISON: 09/15/2017 TECHNIQUE: AP chest. FINDINGS: Feeding tube has been remove d. Left upper extremity PICC and D[employer] WORKER shunt remains in position. Persistent small left pleural effusion. Stable c ardiomediastinal silhouette. Subsegmental atelectasis and bilateral lower lobes, greater on the left. Thin- walled cyst in the left lower lobe is unchanged. IMPRESSION: 1. Feeding tube has been removed. 2. Persistent small left pl eural effusion and bibasilar subsegmental atelectasis. 3. Thin-walled cyst in the left lower lobe. Esophagus BA swallow EXAM: FLUOROSCOPY MODIFIED BARIUM SWALLOW 0 09/16/2018 [facility] function video DX DATE: 09/16/2018 at 1349 hours Center INDICATION: Dysphagia - Comparison to MBS @ - C 09/08/18. COMPARISON: 09/08/2018 modified barium swallow. TECHNIQUE: Oral barium contr ast of differing consistencies was given to the patient to assess swallowing mechanism. The study was performed in conjunction with speech pathology. FLUOROSCOPY TIME: 1 minute 29 seconds SKIN DOSE: 11.51 mGy DISCUSSION: The patient was given barium contrast of differe nt consistencies. Thin barium: Deep, silent penetration.. [place] barium: Normal. Pudding barium: Pooling into the vallecula.. Solid with barium: Pooling into the vallecula.. IMPRESSION: 1. Deep, silent penetration with thin consisten cy barium contrast. 2. No penetration or aspira tion observed with nectar consistency barium contrast. 3. Pooling into the vallecu la seen with pudding and solid consistency barium contrast. 4. Please also see detailed chart note by cristhian rowan. Chest 1view DX EXAM: XR CHEST 1 VIEW 09/15/2018 [facility] edical DATE: 09/15/2018 3:00 CDT Center INDICATION: - intubated COMPARISON: Chest x-ray 09/14/2018 TECHNIQUE: AP chest. FINDINGS: Lines, tubes and hardware: Unchanged positioning of life support catheters. Lungs and pleura: The left c ostophrenic sulcus remains blunted. Linear opacities of the left lower lung have decreased. Left lower lobe pulmonary air cyst is better demonstrated on CT. There is no pneumothorax. Heart and mediastinum: Heart size is unchanged. Atherosclerotic calcifications are seen in the arch of the aorta. Pulmonary vascularity is normal. Bones: No acute abnormality. IMPRESSION: 1. Stable catheter positioning. 2. Persistent left pleural effusion with decrea sed basilar atelectasis. Chest 1view DX EXAM: XR CHEST 1 VIEW 09/14/2018 [facility] edical DATE: 09/14/2018 3:00 T Center INDICATION: - Intubated. FINDINGS: Comparison is made to September 13. Cardiomediastinal silhouette is unchanged, with aortic calcification. Life support lines and tubes remain in place. There are surgical clips in the right upper quadrant of the abdomen. Persistent small left pleural effusion. There is subsegmental atelec tasis in the bilateral lower lobes, greater on the left. Again seen is a thin-walled pulmonary air cyst in the left lower lobe measuring 34 x 27 mm. IMPRESSION: 1. Small left pleural effusion. 2. Bilateral lower lobe subsegmental atelectasis , greater on the left. 3. Again noted is a pulmonary air cyst in the le ft lower lobe. Abdomen/Pelvis w IV EXAM: CT ABDOMEN AND PELVIS WITH CONTRAST 09/13/2018 [facility] contrast CT DATE: 09/13/2018 10:29 CDT Center INDICATION: - concern for a myeloproliferative neoplasm ADDITIONAL INFORMATION: None. COMPARISON: KUB 09/12/2018 TECHNIQUE: Volumetric CT acq uisition of the abdomen and pelvis after the intravenous administration contrast. Axial, coronal and sagittal reconstructions. IV CONTRAST: 99 mL of Visipaque 320 ORAL CONTRAST: None RADIATION DOSE: Total DLP: 2766 mGy*cm (including chest CT) Estimated effective dose: DL P x 0.015 mSv COMPLICATIONS: None FINDINGS: Lines and tubes: Enteric tube with tip at the ga stric antrum. Right upper quadrant surgical clips. D[employer] WORKER shunt catheter tip at the lower central mesen jesse. Lower thorax: Please see con current chest CT report for more details of thoracic findings. Prominent mesogastric fat. Liver: Heterogeneous appearance. No focal hepati c lesions. Biliary tree: Postcholecystectomy changes. Gallbladder: Absent. Pancreas: Atrophic pancreas. No ductal dilatatio n. No focal lesions. Spleen: No splenomegaly or focal lesions. Adrenals: No nodules. Kidneys and ureters: Bilater al kidneys with symmetrical enhancement. Mild perinephric stranding. Some contrast excretion into the renal collecting systems in the delayed phase. No hydronephrosis or renal stones. Bilateral renal hypodensities likely cysts. No hydroureter. Bladder: Distended. No radiopaque stones. Reproductive organs: Antefle xed uterus. Suggestion of a posterior body intramural fibroid measuring 1.3 cm. No large adnexal lesions. Gastrointestinal tract: Stomach: Stomach underdistended. No gastric outl et obstruction.. Small intestines: No obstruction or dilatation. Colon: Retained contrast wit hin the cecum and ascending colon and small bowel within the descending and sigmoid colon from recent modified barium study. No colonic obstruction. Peritoneum and retroperitone um: Normal caliber (series 12 B image 20 and series 13 B image 31). No paraspinal masses are identified. Lymph nodes: No significant retroperitoneal or p elvic lymphadenopathy. Vasculature: Aorta and branches: Normal c aliber abdominal aorta and IVC. Moderate vascular calcifications of the abdominal aorta and branches. Aortic visceral branches opacified. IVC and branches: Normal caliber. IVC and branch es opacified. Portal system: Opacified. Bones: Degenerative changes of the thoracolumbar spine. No significant mottle appearance of the bones. Soft tissues: Thinning of th e linea alba. Small fat-containing umbilical hernia. IMPRESSION: 1. No paraspinal masses or significant lymphadenopathy within the abdomen or pelvis. 2. No splenomegaly. 3. No paraspinal mass. 4. No significant mottle ap pearance of the bones. However, MR can offer a more sensitive evaluation of the bone marrow. 5. Heterogeneous enhancemen t of the liver could relate to timing of underlying parenchymal disease. 6. Postcholecystectomy changes. 7. No bowel obstruction. 8. Bilateral renal cysts. 9. Please concurrent chest CT report for more d etails of thoracic findings. Chest w contrast CT EXAM: CT CHEST WITH CONTRAST 09/13/2018 [facility] DATE: 09/13/2018 10:28 CDT Center INDICATION: - lung nodules TECHNIQUE: Volumetric CT acq uisition of the chest, following intravenous contrast. Axial, sagittal and coronal reconstructions. Axial MIP reconstructions are created at the acquisition workstation. IV Contrast: 100 mL of Visipaque 320. DLP: 971 mGy-cm COMPARISON: 08/18/2018 FINDINGS: Lines and Tubes: Endotrachea l tube with tip well above the jennifer. Feeding tube is adequate in position. Left upper extremity PICC with tip terminates in the proximal SVC. Lower Neck: The visible por tions of the lower neck and thyroid are unremarkable. Heart and Great Vessels: No cardiomegaly. No pericardial effusion. No coronary calcifications. Aortic atherosclerotic disease. 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 Lymph Nodes: No hilar, media stinal, axillary or internal mammary lymphadenopathy. Lungs: Bilateral lower loba r subsegmental plate like atelectatic changes as well [...] below the diaphragm. Bones and Soft Tissues: Dege nerative changes of the thoracic spine. No acute osseous abnormalities. No destructive focal osseous lesions. Diffuse osteopenic changes of the examined bones. IMPRESSION: 1. Innumerable bilateral sm all pulmonary nodules are noted measuring up to 3 mm in size, stable since 08/18/2018. Follow-up recommendation as below. 2. Mosaic attenuation seen in both lungs suggestive of small airway disease; for example infectious or inflammatory bronchiolitis. 3. Bilateral lower lobar bahena bsegmental platelike atelectatic changes associated with fibrotic changes notably in the left lower lobe. Left lower lobar large cyst or pneumatocele. 4. 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 RECOMMENDATIONS: If there is history of primary neoplastic process, chest CT follow-up in 3 months is recommended. If there is no history of primary neoplastic process, follow-up per Fleischner criteria : The [facility] for nodules measuring up to 6 mm [...] EXAM: MRI BRAIN WITH AND WITHOUT CONTRAST [facility] MRI DATE: 09/13/2018 at 0221 hours. C enter INDICATION: Cranial nerve pa lsy/palsies - Please do thin cuts. We are concerned about meningioma recurrence with skull base involvement. Patient w/ CN 2,7,9,10 deficits ADDITIONAL INFORMATION: 73 y ear old female with meningioma resection in the past COMPARISON: MR brain exams 08/16/2018, 07/07/2012. TECHNIQUE: Multiplanar, mult isequence MRI of the brain with and without intravenous contrast. IV contrast: None. FINDINGS: There is no acute intracranial infarct or recent hemorrhage. Postoperative changes of rig ht frontal craniotomy and right frontotemporal lobe encephalomalacia from remote right frontal mass resection are redemonstrated. Left transfrontal ventricula r shunt in place. No evidence of hydrocephalus. Pachymeningeal enhancement seen primarily over the frontal convexities is unchanged and likely a consequence of the presence o f the shunt. No findings of intracranial hypoten willie are present. 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 AP diameter is now up to 2.4 cm, previously 2.1 cm. 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 AP diameter is now up to 2.4 cm, previously 2.1 cm. 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 The lesion als o surrounds the optic nerves as they exit from the orbital apices bilaterally. No cranial nerve enhancement or compressive lesion of the lower cranial nerves is detected to account for the patient's clinical findings. Chest 1 v for EXAM: XR CHEST 1 VIEW 09/13/2018 [facility] edical Placement DX DATE: 09/13/2018 3:00 T Center INDICATION: Tube placement - ETT placement COMPARISON: 08/31/2018 TECHNIQUE: AP chest IMPRESSION: 1. Interval placement of en dotracheal tube with tip terminates 2 cm above the jennifer. Interval placement of feeding tube with adequate positioning. Again seen is left upper extremity PICC with stable p osition. Left sided [employer] shunt is stable in positi on. 2. Small left pleural effus ion with left basilar atelectatic changes. No new lung lesions identified. 3. Cardiomediastinal silhou ette is enlarged, unchanged. Aortic atherosclerotic disease. 4. Osseous structures are stable. Abdomen AP DX EXAM: XR ABDOMEN 1 VIEW 09/12/2018 [facility] DATE: 09/12/2018 20:16 [facility] Center INDICATION: - for Dobbhoff placement COMPARISON: [...] DX EXAM: XR ABDOMEN 1 VIEW 09/12/2018 [facility] DATE: 09/12/2018 17:42 [facility] Center INDICATION: - [place] placement COMPARISON: 03/14/2011 TECHNIQUE: Limited AP view of the abdomen for tube placement assessment. Number of images: 1 FINDINGS: Transesophageal feeding tube tip in the proximal stomach and needs to be further advanced. Transesophageal suction tube: None. Other tubes and lines: A [employer] WORK[employer] shunt catheter noted . No other changes. IMPRESSION: Tube positions as above. Skull 1 view DX EXAM: XR SKULL 1 VIEW 09/11/2018 [facility] DATE: 09/11/2018 1:02 PM Center INDICATION: [employer] WORKER shunt, MRI COMPARISON: Skull x-ray from 08/18/2018 TECHNIQUE: A single oblique radiograph of the sk ull. DISCUSSION: Ventricular cath eter with Hakim Codman valve, setting of 140 mm water, without interval change. IMPRESSION: Stable valve setting 140 mm water. Chest 1 v for EXAM: XR CHEST 1 VIEW 09/10/2018 [facility] edical Placement DX DATE: 09/10/2018 1:51 CDT Center INDICATION: Line Placement - Chest 1 view for li ne placement COMPARISON: 09/08/2017 TECHNIQUE: AP chest. FINDINGS: Left-sided chest wall [employer] WORK[employer] rosa nt is unchanged. Redemonstration of left upper extremity PICC with its tip projecting over the SVC. No new line noted. Stable cardiomediastinal silhouette. Low lung volumes w ith bronchovascular crowding and bibasilar subsegmental atelectasis. No pneumothorax. Small bilateral pleural effusions possible. IMPRESSION: 1. Stable life support lines and tubes. No new line noted. 2. Low lung volumes with va scular crowding and bibasilar subsegmental atelectasis. 3. Small bilateral pleural effusions possible. Esophagus BA swallow EXAM: MODIFIED BARIUM SWALLOW WITH SPEE CH PATHOLOGY 09/08/[address] [facility] [place] function video DX DATE: 09/08/2018 12:40 CDT . ORDERING PHYSICIAN: Sadi Cortés MD CLINICAL INDICATION: - Complete with BIOMEDICAL REPAIR TECHNICIAN Vandana gomez; TECHNIQUE: The patient swall owed varying consistencies of barium and barium coated food items under fluoroscopy in the presence of speech pathology DOSE INFORMATION: Fluoroscopy time: 1 minute Images obtained: No fluoroscopic images were basil en COMPARISON: Unavailable FINDINGS: Examination was pe rformed in the presence of speech pathology which also recorded the examination. The swallows abnormal oropharyngeal spaces and frequent nasal regurgitation. Thin barium: Symptomatic aspiration [place]: Symptomatic aspiration IMPRESSION: 1. Some traumatic aspiration with thin and nect ar consistencies 2. Pharyngeal stasis with nasal regurgitation 3. Please refer to separate speech pathology report for further detail and recommendations Chest 1 v for Chest 1 v for Placement DX 09/08/2018 9:56 CDT 0 09/08/[address] [facility] [place] Placement DX HISTORY/INDICATIONS:73 years Female Line Placement - Chest 1 view for line placement COMPARISON: 03/14/2011 FINDINGS: Lung Volume: Low Lungs: No acute airspace infiltrates. Pulmonary vasculature: Normal size Cardiac silhouette: Normal size Mediastinum: Normal size. Visualized skeleton: No obvious fractures Line/tubes/implants: Left PI CC line terminates in the SVC. A ventriculoperitoneal shunt catheter running down the left side of the neck and chest. IMPRESSION: No acute airspace infiltrates. Left PICC line terminates in the SVC. [id number] Angiogram cervical PROCEDURE: 08/19/2018 [facility] roger artery bilateral VR 1. 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 HISTORY: 73-year-old female patient with past medical history of meningioma of the planum sphenoidale resected in 2010, status post [employer] H[employer] WORKER shunt placement. Currently complaining of insidious onset of memory loss, left ptosis and slurred speech for 3 days . REFERRING PROVIDER: Sean Coy MD ATTENDING: Cm [...] KERMA Lateral: 331.69 mGy PROCEDURE: Once informed con sent was obtained describing all the risks, benefits and alternatives of the procedure the patient was brought to the interventional suite and placed in the supine position w here moderate sedation was a dministered under the supervision of the attending physician. The patient was then prepped and draped in the usual sterile fashion. The right femoral artery was accessed usin g a single wall micropunctur e technique and a 5-Uruguayan sheath was placed. A 5- [place] Vert catheter was coaxially advanced over a 0.035 Terumo Glidewire through the sheath into the aorta arch to select t he below mentioned arteries using roadmap technique. Two-dimensional angiography was performed in biplane projections. After review of the angiogra phy data, the catheter was withdrawn. Right femoral artery angiogram was performed and the catheter was removed. The femoral artery sheath was removed and closed by the appl ication of a Mynx closure de vice. Post procedure neurological examination was at the patient's baseline. The patient was was then transferred to interventional holding area for post procedure care. TASKS: 1. Right common carotid artery catheterization a nd 2-D cervical angiogram 2. Right external carotid artery selective steven terization and 2-D angiogram 3. Right internal carotid artery selective steven terization and 2-D angiogram 4. Left common carotid artery catheterization an d 2-D cervical angiogram 5. Left external carotid artery selective cathet erization and 2-D angiogram 6. Left internal carotid artery selective cathet erization and 2-D angiogram 7. Left vertebral artery selective catheterizati on and 2-D cerebral angiogram FINDINGS: 1. Right common carotid dora ry: Right common carotid artery injection and cervical angiogram reveals normal antegrade flow into the external and internal carotid arteries with normal filling of the exte rnal carotid artery branches . There is a smooth atheromatous plaque along the posterior wall of the carotid bulb and the proximal cervical internal carotid artery, without hemodynamically significant st enosis. Course and caliber o f the cervical portion of the internal carotid artery are otherwise unremarkable. Further inspection demonstrates no evidence of dissection, stenosis, aneurysm, or other vasc ular abnormality within the common carotid artery into the cervical segment of the internal carotid artery. 2. Right external carotid ar jesse: Right external carotid artery injection reveals normal antegrade opacification of the right external carotid artery and branches. There is no evidence of abnormal intra cranial communication or ear ly venous shunting. 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 There is no opacification of the ophthalmic artery territory. 3. Right internal carotid ar jesse: Right internal carotid artery injection reveals normal antegrade filling of the distal internal carotid artery, ophthalmic artery, anterior cerebral artery, middle cere bral artery and the distal b ranches. Further inspection of the remaining right internal carotid artery circulation revealed no evidence of cerebral aneurysm, arteriovenous malformation, hemodynamically significant arterial stenosi s or other vascular abnormalities. Note is made [...] th e superior sagittal sinus, likely postsurgical i n nature. 4. Left common carotid arter y: Left common carotid artery injection and cervical angiogram reveals normal antegrade flow into the external and internal carotid arteries with normal filling of the line production cook al carotid artery branches. Smooth atheromatous plaques surrounding the carotid bifurcation and the proximal cervical internal carotid artery, without hemodynamically significant stenosis. Course and ca liber of the cervical portio n of the internal carotid artery are otherwise unremarkable. Further inspection demonstrates no evidence of dissection, stenosis, aneurysm, or other vascular abnormality with in the common carotid artery into the cervical segment of the internal carotid artery. 5. Left external carotid art regina: Left external carotid artery injection reveals normal antegrade opacification of the left external carotid artery and branches. There is no evidence of abnormal intracra nial communication or early venous shunting. Of note, there is a round shaped, hypervascular lesion, located in the subcutaneous tissue, immediately anterior to and apparently felt by the proximal super ficial temporal artery, checo uring approximately 8 mm in the maximum diameter. The is no opacification of the ophthalmic artery territory. 6. Left internal carotid art regina: Left internal carotid artery injection reveals normal antegrade filling of the distal internal carotid artery, ophthalmic artery, anterior cerebral artery, middle cerebr al artery and the distal bra nches. 50% stenosis of the ophthalmic segment, just distal to the origin of the superior hypophyseal artery. An early an ill- defined blush of contrast is seen along the planu m sphenoidale, corresponding to the known meningioma; however, less prominent when compared with the contralateral side. The SANTIAGO are supplied by the left A1 segment bilaterally. The retinal blush is unr emarkable. Further inspectio n of the remaining left internal carotid artery circulation revealed no evidence of cerebral aneurysm, arteriovenous malformation or other vascular abnormalities. Capillary phase images were also unrem arkable. There is no opacification of the anterior 3rd of the superior sagittal sinus. 7. Left vertebral artery: Le ft vertebral artery injection and cerebral angiogram reveals normal antegrade opacification of the high cervical segment of the left vertebral artery, basilar artery and resp ective branches. Retrograde contrast opacification of the contralateral right V4 segment was achieved and demonstrate no evidence of an aneurysm at the origin of the right PICA. Smooth atheromatous plaq ues of the P1 segments bilat erally, without resultant hemodynamically significant stenosis. Further inspection demonstrates no other evidence of cerebral aneurysm, arteriovenous malformation, dissection , or other vascular abnormal ities. Capillary and venous phase images were also unremarkable with no evidence of venoocclusive disease. IMPRESSION: 1. There is no aneurysm, or any other vascular lesion to explain the patient's acute neurologic deficit. 2. 50% stenosis of the ophth almic segment of the left internal carotid artery, likely atherosclerotic in nature. 3. Narrowing of the ophthalm ic and communicating segments of the right internal carotid artery, associated with absence of the right A1 segment, felt to be secondary to tumor encasement. 4. Hypervascular subcutaneou s lesion in the left parotid region, likely neoplastic in nature. Ambulatory high-resolution ultrasound examination would be helpful for better characterization. 5. Atheromatous plaques in t he carotid bifurcations and vertebral basilar system, without hemodynamically significant stenosis. Skull 1 view DX EXAM: XR SKULL 1 VIEW 08/18/2018 [facility] edical DATE: 08/18/2018 17:56 CDT Center INDICATION: - post, Codman view COMPARISON: 08/17/2018 TECHNIQUE: AP and lateral radiographs of the sk ull DISCUSSION: A Codman valve set at 140 mm H2O is demonstrated, which represent a slight decrease in the pressure setting as compared to the examination obtained one day prior. IMPRESSION: Minimal change in the setting of the Codman valv e, now at 140 mm H2O. Brain wo contrast EXAM: MRI BRAIN WITHOUT CONTRAST 08/18/2018 [facility] MRI EXAM: MRI ORBITS WITHOUT CONTRAST. 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 Pres enting with 5 day history of left eye anisocoria and ptosis with slow speech. COMPARISON: 08/18/[address]; 08/16/2018 CT head; 08/16/2018 CTA head/neck; 07/07/2012 MRI brain, 07/20/2010 MRI brain, 01/23/2011 MRI brain TECHNIQUE: Multiplanar, multisequence MRI of the brain without contrast. FINDINGS: There are postsurgical box es of right frontal craniotomy for resection open [...] fissures, and optic canals. Left intraocular lens replac ement. Globes are otherwise normal in appearance. Extraocular muscles are symmetric with normal morphology and signal intensity. Optic nerves normal in size and signal. No in flammatory changes of the in traorbital fat. Periorbital soft tissues are unremarkable. Unchanged cystic encephaloma lacia with adjacent gliosis throughout involving most of the anterior right frontal lobe and right anterolateral temporal lobe. Left frontal ventriculostomy terminates in unchanged position in the anterior body of the right lateral ventricle. Ventricular caliber is unchanged when compared with multiple prior studies dating back to 2010. The basilar cisterns are patent. There is no restricted diffu willie to suggest acute infarct. No abnormal extra- axial fluid collection, mass effect, or midline shift demonstrated. The major intracranial vascu lar flow-related signal voids are maintained. Better seen [...] orbital fissures. These f indings could explain report ed cranial nerve symptoms. These bony changes are presumably due to a combination of residual intraosseous meningioma and associated reactive hyperostosis (with diffuse narciso rial inner table hyperostosi s and cervical/thoracic diffuse hepatic skeletal hyperostosis suggesting the patient is prone to reactive bone formation). Contrast-enhanced study would be helpful to further evaluate, which of the abnormality represents r esidual/recurrent meningioma. Narrowing of the supraclinoi d right internal carotid artery as it traverses the hyperostotic changes is redemonstrated. Unchanged right frontal and right temporal cystic encephalomalacia with adjacent gliosis. Unchanged ventricular caliber and position of le ft frontal ventriculostomy. Orbit wo contrast EXAM: MRI BRAIN WITHOUT CONTRAST 08/18/2018 [facility] MRI EXAM: MRI ORBITS WITHOUT CONTRAST. 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 Pres enting with 5 day history of left eye anisocoria and ptosis with slow speech. COMPARISON: 08/18/[address]; 08/16/2018 CT head; 08/16/2018 CTA head/neck; 07/07/2012 MRI brain, 07/20/2010 MRI brain, 01/23/2011 MRI brain TECHNIQUE: Multiplanar, multisequence MRI of the brain without contrast. FINDINGS: There are postsurgical box es of right frontal craniotomy for resection open [...] fissures, and optic canals. Left intraocular lens replac ement. Globes are otherwise normal in appearance. Extraocular muscles are symmetric with normal morphology and signal intensity. Optic nerves normal in size and signal. No in flammatory changes of the in traorbital fat. Periorbital soft tissues are unremarkable. Unchanged cystic encephaloma lacia with adjacent gliosis throughout involving most of the anterior right frontal lobe and right anterolateral temporal lobe. Left frontal ventriculostomy terminates in unchanged position in the anterior body of the right lateral ventricle. Ventricular caliber is unchanged when compared with multiple prior studies dating back to 2010. The basilar cisterns are patent. There is no restricted diffu willie to suggest acute infarct. No abnormal extra- axial fluid collection, mass effect, or midline shift demonstrated. The major intracranial vascu lar flow-related signal voids are maintained. Better seen [...] orbital fissures. These f indings could explain report ed cranial nerve symptoms. These bony changes are presumably due to a combination of residual intraosseous meningioma and associated reactive hyperostosis (with diffuse narciso rial inner table hyperostosi s and cervical/thoracic diffuse hepatic skeletal hyperostosis suggesting the patient is prone to reactive bone formation). Contrast-enhanced study would be helpful to further evaluate, which of the abnormality represents r esidual/recurrent meningioma. Narrowing of the supraclinoi d right internal carotid artery as it traverses the hyperostotic changes is redemonstrated. Unchanged right frontal and right temporal cystic encephalomalacia with adjacent gliosis. Unchanged ventricular caliber and position of le ft frontal ventriculostomy. Neck soft tissue w EXAM: CT NECK WITH CONTRAST 08/18/2018 [facility] contrast CT DATE: 08/18/2018 7:19 CDT Center INDICATION: eft-sided Brendan 's syndrome. Please start scan below below aortic [...] lung apices are clear. The cervical spine demonstra ramakrishna anterior bridging osteophytes without significant decrease of the intervertebral disc spaces consistent with diffuse pathic skeletal hyperostosis (DISH) ossification of t he posterior longitudinal ligament of the tector ial membrane is also seen. The skull base demonstrates thickening of the periosteum with groundglass appearance of the planum sphenoid alley which has progressed since 2010 and based on the radiographic appearance from 08/17/2018 is consistent with Paget's disease. No abnormal adenopathies are seen. Postsurgical changes of posterior decompressive laminectomies at C2. The spinal canal remains tig ht better evaluation can be obtained with an MRI of the cervical spine. The airways patent. The suprahyoid neck spaces are unremarkable. Atheromatous changes are see n in the aortic arch and aberrant right subclavian artery is present. Atheromatous changes are see n in the carotid bifurcations of both sides without evidence of occlusions or stenosis. Retropharyngeal course of both internal carotid arteries in the neck is seen. The visualized adrenal circulation is normal. Surgical changes of a pterional craniotomy are s een. IMPRESSION: 1. Bony changes in the skul l base which suggests hyperostosis and sclerosis from Paget's disease which cause decrease in diameter of the superior orbital fissure and that have progressed since 2010. 2. Changes of diffuse idiopathic skelet al hyperostosis in the cervical spine. 3. Postsurgical changes of pterional approach craniotomy and of laminectomies of C2 are seen. 4. Ventricular shunt catheter in place. Esophagus BA swallow EXAM: FLUOROSCOPY MODIFIED BARIUM SWALLOW 0 08/18/2018 [facility] function video DX DATE: 08/18/2018 7:00 [facility] INDICATION: - swallow. ADDITIONAL INFORMATION: None. COMPARISON: None. TECHNIQUE: Oral barium contr ast of differing consistencies was given to the patient to assess swallowing mechanism. The study was performed in conjunction with speech pathology. FLUOROSCOPY TIME: 45 seconds Skin dose 4.43 mGy DISCUSSION: The patient was given barium contrast of differe nt consistencies. Thin barium: Thin barium was initially given via straw and no penetration or aspiration was appreciated. When thin barium was given via straw to help clear the residue from the pudding barium, flash penetration was observed. Solid and pudding barium: No aspiration but phar yngeal residue noted. Barium tablet: Passed without difficulty. IMPRESSION: 1. Flash penetration of thin barium as describe d above. 2. Please also see detailed chart note by cristhian francis pathology. Chest w contrast CT EXAM: CT CHEST WITH CONTRAST 08/17/2018 [facility] DATE: 08/17/2018 17:07 CDT Center INDICATION: eft-sided Brendan 's syndrome. Please start scan below below aortic arch - left-sided Brendan's syndrome. Please start scan below below aortic arch TECHNIQUE: Volumetric CT acq uisition of the chest, following intravenous contrast. Axial, sagittal and coronal reconstructions. Axial MIP reconstructions are created at the acquisition workstation. IV Contrast: 100 mL of Visipaque 320. 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 Lower Neck: Please refer to the separate report of neck soft tissue CT for further details about the neck findings. Heart and Great Vessels: Mar ked narrowing/stenosis of the right subclavian vein just below the clavicular (series 6, images 34-36). No cardiomegaly. No pericardial effusion. No coronary calcifications i dentified. Aortic atheroscle rotic disease. Normal size of the ascending aorta and main pulmonary artery. 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 No central pulmonary embolism. Lymph Nodes: Multiple subcen timeter slightly prominent paratracheal and mediastinal lymph nodes are noted measuring up to 8mm in short axis. Lungs: Multiple bilateral c entrilobular patchy and nodular groundglass nodules are noted notably in both lower lobes associated with mosaic attenuation in both lungs. Paraseptal emphysematous changes are seen in the left lower lobe. Mild bilateral bronchial thickening. Pleura: No pleural effusion or pneumothorax. Upper abdomen: Postcholecystectomy surgical cli ps are seen. Bones and Soft Tissues: Dege nerative changes of the thoracic spine. No destructive focal osseous lesions. No acute osseous abnormalities. Diffuse osteopenic changes of the examined bones. IMPRESSION: 1. Multiple bilateral centr ilobular patchy and nodular groundglass opacities associated with bronchial wall thickening and mosaic attenuation in both lungs raising the possibility of small airway disea se like infectious or inflam matory bronchiolitis. Chest CT follow-up in 3 months can be performed for evaluation following adequate treatment. 2. No evidence of mediastinal mass identified i n the current study. 3. Multiple prominent to mi ldly enlarged mediastinal and paratracheal lymph nodes are noted measuring up to 8 mm in short axis. The may be benign or neoplastic. 4. Narrowing of the right subclavian vein just below the right clavicular. 5. 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 6. Please refer to the sepa rate report of neck soft tissue CT for further details about the neck findings. 7. Aortic atherosclerotic disease. Skull 2 views DX Exam: Radiographs of the skull for shunt settgil g. 08/17/2018 [facility] HISTORY: Evaluate shunt setting. Comparison with radiographs from August 19, 2011. TECHNIQUE: 3 views of the skull were obtained. FINDINGS: A Codman valve is placed, th e shunt valve setting is approximately 150 cc of water. FINDINGS: Radiographs for shunt valve setting. Brain/Neck CTA Exam: CTA HEAD AND NECK 08/16/2018 [facility] DATE: 08/16/2018 7:42 PM CDT Cent er INDICATION: - stroke symptoms COMPARISON: CT brain same day, MRI brain 013 TECHNIQUE: Rapid acquisition spiral CT images of [...] usual course and caliber. Eccentric calcified plaque a t the origin of the right internal carotid artery not resulting in significant stenosis by NASCET criteria. Concentric calcified plaque at the origin of the left internal car otid artery not resulting in significant stenosis by NASCET criteria. Retropharyngeal medialization of both internal carotid arteries. Both intracranial internal c arotid arteries are patent. There is diffuse luminal narrowing in the supraclinoid right internal carotid artery. The right carotid terminus, right middle cerebral artery and right anterior cerebral art regina are displaced by known central skull base meningioma. Both anterior and middle cerebral arteries are patent. Both cerebral arteries are p atent from their origin. The left vertebral artery is dominant. The intradural vertebral arteries and basilar artery are patent. Both anger control counselor are patent. Nonflow limiting stenot ic lesions in the left P2 and right P3-P4 segmen t. No AV malformation or aneurysms. IMPRESSION: Atheromatous disease in the carotid bulbs not resulting in significant stenosis by NASCET criteria. Greater than 50% stenosis in the para and supraclinoid right internal carotid artery. No flow-limiting stenotic lesions in both anger control counselor. Aberrant right subclavian artery Qualitative and quantitative assessments of stenosis in the carotid bulbs is made referencing the distal internal carotid artery Brain wo contrast CT EXAM: CT BRAIN WITHOUT CONTRAST 08/16/2018 [facility] DATE: 08/16/2018 4:26 PM CDT Cent er INDICATION: - stroke symptoms COMPARISON: 08/20/2011 TECHNIQUE: Routine axial beka ges of the brain were obtained using a conventional ct scanner. Reformatted images in the sagittal and coronal plane were included. IV contrast: None. FINDINGS: No intra-axial mass or mass effect is present. No territorial infarct is detected. Again identified is a ventri culoperitoneal shunt on the left entering from a frontal approach and having its tip across midline within the frontal horn of the right lateral ventricle. Since the previous examination the catheter vila s decompressed the ventricular system. Although not slitlike, the size of the ventricles is smaller than would be expected for a patient this age. On the other hand, given th e absence of volume loss els ewhere this may reflect the patient's normal baseline. Again identified is the hype rdense mass along the planum sphenoid alley. This is partly better visualized due to differences in slice location but the lesion appears to be larger as well measuring appro ximately 24 x 22 mm (transve rse by AP) craniocaudal diameter as measured on the sagittal images is up to 6 mm while the sagittal images demonstrate involvement more posteriorly than visible on a single axial image with an AP diame ter therefore being approximately 24-25 mm in this plane. No intraparenchymal or extra-axial hemorrhage vila s occurred. Incidental imaging of the or bits, paranasal sinuses, skull, and skull base also demonstrates no interval change. IMPRESSION: 1. No acute intracranial abnormality. No acute intracranial hemorrhage. 2. Postoperative changes of right frontal craniotomy and right frontal lobe encephalomalacia from remote right frontal mass resection. 3. Left transfrontal ventri cular shunt in place. No evidence of hydrocephalus. Conversely, there is decompression of the ventricular system by the ventriculoperitoneal shunt in the interim. 4. Slight interval enlargem ent of planum sphenoidale meningioma in comparison to brain MRI from 07/07/2012. AP diameter is now up to 2.4 cm, previously 2.1 cm. Consultation Notes No Data Provided for This Section Discharge Summaries No Data Provided for This Section History and Physicals No Data Provided for This Section Vital Signs Vital Sign Value Date Comments Source Temperature Oral (F) 98.8 F 03/04/2019 [facility] Heart Rate 78 03/04/2019 [facility] Respitory Rate 18 03/04/2019 [facility] Center Systolic (mm Hg) 126 03/04/2019 [facility] dical Center Diastolic (mm Hg) 64 03/04/2019 [facility] Temperature Oral (F) 97.9 F 03/04/2019 [facility] Heart Rate 75 03/04/2019 [facility] Respitory Rate 18 03/04/2019 [facility] Systolic (mm Hg) 135 03/04/2019 [facility] Center Diastolic (mm Hg) 69 [facility] Temperature Oral (F) 98.6 F 03/04/2019 [facility] Heart Rate 68 03/04/2019 [facility] Respitory Rate 18 03/04/2019 [facility] Systolic (mm Hg) 147 03/04/2019 [facility] Center Diastolic (mm Hg) 77 [facility]04[facility] Height 149.86 cm 03/01/2019 [facility] Weight 100 [facility]01[facility] BMI Calculated 44.53 03/01/2019 [facility] Height 149.86 cm 02/16[facility] Weight 90.909 02/16[facility] Height 149.86 cm 02/09/2019 [facility] Weight 90.909 02/09/[facility] BMI Calculated 40.48 02/05/2019 [facility] Temperature Oral (F) 97.6 F 01/10/2019 [facility] Heart Rate 78 01/10/2019 [facility] Respitory Rate 18 01/10/2019 [facility] Systolic (mm Hg) 109 01/10/2019 [facility] Center Diastolic (mm Hg) 70 01/10/2019 [facility] Center Temperature Oral (F) 97.6 F 01/10/2019 [facility] Heart Rate 80 01/10/2019 [facility] Respitory Rate 18 01/10/2019 [facility] Systolic (mm Hg) 112 01/10/2019 [facility] dical Center Diastolic (mm Hg) 60 01/10/2019 [facility] Center Temperature Oral (F) 97.9 F 01/10/2019 [facility] Heart Rate 84 01/10/2019 [facility] Respitory Rate 18 01/10/2019 [facility] Systolic (mm Hg) 106 01/10/2019 [facility]ical Center Diastolic (mm Hg) 67 01/10/2019 [facility] Center Height 152.4 cm 12/27/2018 [facility] Height 152.4 cm 12/27/2018 [facility] Height 152.4 cm 12/27/2018 [facility] Weight 92 12/24/2018 [facility] BMI Calculated 39.61 12/24/2018 [facility] Temperature Oral (F) 98.8 F 11/29/2018 [facility] Heart Rate 78 11/29/2018 [facility] Systolic (mm Hg) 174 11/29/2018 [facility] dical Center Diastolic (mm Hg) 74 11/29/2018 [facility] Center Respitory Rate 20 11/29/2018 [facility] Systolic (mm Hg) 190 11/29/2018 [facility]ical Center Diastolic (mm Hg) 79 11/29/2018 [facility] Height 149.86 cm 11/29/[facility] BMI Calculated 45.54 11/29/2018 [facility] Weight 102.273 11/29/2018 [facility] Systolic (mm Hg) 163 11/29/2018 [facility] dical Center Diastolic (mm Hg) 83 11/29/2018 [facility] Center Respitory Rate 20 11/29/2018 [facility] Heart Rate 80 11/29/2018 [facility] Temperature Oral (F) 98.7 F 11/29/2018 [facility] Center Systolic (mm Hg) 139 09/23/2018 [facility] dical Center Diastolic (mm Hg) 66 09/23/2018 [facility] Center Respitory Rate 18 09/23/2018 [facility] Temperature Oral (F) 97.8 F 09/23/2018 [facility] Heart Rate 70 09/23/2018 [facility] Temperature Oral (F) 97.2 F 09/23/2018 [facility] Heart Rate 66 09/23/2018 [facility] Systolic (mm Hg) 147 09/23/2018 [facility]ical Center Diastolic (mm Hg) 63 09/23/2018 [facility] Center Respitory Rate 18 09/23/2018 [facility] Systolic (mm Hg) 147 09/23/2018 [facility] Center Diastolic (mm Hg) 53 09/23/2018 [facility] Center Respitory Rate 18 09/23/2018 [facility] Heart Rate 67 09/23/2018 [facility] Temperature Oral (F) 98.3 F 09/23/2018 [facility] BMI Calculated 40.88 09/21/2018 [facility] Weight 91.818 09/21/2018 [facility] Temperature Oral (F) 98.1 F 09/20/2018 [facility] Temperature Oral (F) 97.9 F 09/20/2018 [facility] Respitory Rate 30 09/20/2018 [facility] Center Systolic (mm Hg) 174 09/20/2018 [facility]ical Center Diastolic (mm Hg) 74 09/20/2018 [facility] Respitory Rate 27 09/20/2018 [facility] Systolic (mm Hg) 167 09/20/2018 [facility]ical Center Diastolic (mm Hg) 70 09/20/2018 [facility] Temperature Oral (F) 97.5 F 09/20/2018 [facility] Respitory Rate 35 09/20/2018 [facility] Center Systolic (mm Hg) 175 09/20/2018 [facility]ical Center Diastolic (mm Hg) 71 09/20/2018 [facility] Height 149.86 cm 09/15/[facility] Height 149.86 cm 09/15/[facility] Height 149.86 cm 09/15/2018 [facility] Heart Rate 101 09/11/2018 [facility] Heart Rate 98 09/11/2018 [facility] Heart Rate 95 09/11/2018 [facility] Respitory Rate 19 09/10/2018 [facility] C ity Systolic (mm Hg) 161 09/10/[address] [facility] Diastolic (mm Hg) 101 09/10/2018 [facility] Respitory Rate 16 09/10/2018 [facility] C ity Systolic (mm Hg) 148 09/10/[address] [facility] Diastolic (mm Hg) 67 09/10/2018 [facility] Systolic (mm Hg) 121 09/09/[address] [facility] Diastolic (mm Hg) 54 09/09/2018 [facility] Respitory Rate 15 09/09/2018 [facility] BMI Calculated 41.99 09/08/2018 [facility] ity Height 149.86 cm 09/08/2018 [facility] Weight 94.3 09/08/2018 [facility] Systolic (mm Hg) 110 08/20/2018 [facility] dical Center Diastolic (mm Hg) 66 08/20/2018 [facility] Center Respitory Rate 33 08/20/2018 [facility] Temperature Oral (F) 98.0 F 08/20/2018 [facility] Temperature Oral (F) 97.9 F 08/19/2018 [facility] Respitory Rate 20 08/19/2018 [facility] Temperature Oral (F) 97.8 F 08/19/2018 [facility] Systolic (mm Hg) 138 08/19/2018 [facility] dical Center Diastolic (mm Hg) 76 08/19/2018 [facility] Center Respitory Rate 18 08/19/2018 [facility] Systolic (mm Hg) 144 08/19/2018 [facility]ical Center Diastolic (mm Hg) 63 08/19/2018 [facility] Center Heart Rate 92 08/19/2018 [facility] Heart Rate 72 08/18/2018 [facility] Heart Rate 70 08[facility]18/2018 [facility] BMI Calculated 49.69 08/17/2018 [facility] Height 149.86 cm 08/17/2018 [facility] Weight 111.6 08/17/2018 [facility] Weight 113.636 08/16/2018 [facility] Height 152.4 cm 08/16/2018 [facility] BMI Calculated 48.93 08/16/2018 [facility] Diastolic (mm Hg) 60.0 03/25/2011 [facility] Center Systolic (mm Hg) 151.0 03/25/2011 [facility] Center Temperature Oral (F) 97.6 F 03/25/2011 [facility] Heart Rate 87.0 03/25/2011 [facility] Respitory Rate 20.0 03/25/2011 [facility] Temperature Oral (F) 97.8 F 03/25/2011 [facility] Respitory Rate 20.0 03/25/2011 [facility] Heart Rate 98.0 03/25/2011 [facility] Systolic (mm Hg) 163.0 03/25/2011 [facility] dical Center Diastolic (mm Hg) 82.0 03/25/2011 [facility] Center Diastolic (mm Hg) 68.0 03/25/2011 [facility] Center Systolic (mm Hg) 156.0 03/25/2011 [facility] Center Temperature Oral (F) 97.7 F 03/25/2011 [facility] Heart Rate 95.0 03/25/2011 [facility] Respitory Rate 20.0 03/25/2011 [facility] Weight 90.909 03/22/2011 [facility] Height 149.86 cm 03/22/2011 [facility] Weight 90.909 03/22/2011 [facility] Height 149.86 cm 03/22/2011 [facility] Diastolic (mm Hg) 56.0 03/15/2011 [facility] Center Systolic (mm Hg) 128.0 03/15/2011 [facility] dical Center Respitory Rate 16.0 03/15/2011 [facility] Heart Rate 85.0 03/15/2011 [facility] Temperature Oral (F) 96.6 F 03/15/[facility] Diastolic (mm Hg) 91.0 03/15/2011 [facility] Center Systolic (mm Hg) 121.0 03/15/2011 [facility] dical Center Respitory Rate 18.0 03/15/2011 [facility] Heart Rate 78.0 03/15/2011 [facility] Temperature Oral (F) 98.2 F 03/15/2011 [facility] Diastolic (mm Hg) 39.0 03/15/2011 [facility] Center Systolic (mm Hg) 170.0 03/15/2011 [facility] dical Center Respitory Rate 18.0 03/15/2011 [facility] Temperature Oral (F) 98.0 F 03/15/2011 [facility] Heart Rate 93.0 03/15/2011 [facility] Weight 83.665 03/14/2011 [facility] Height 149.86 cm 03/14/2011 [facility] Heart Rate 97.0 03/07/2011 [facility] Respitory Rate 20.0 03/07/2011 [facility] Systolic (mm Hg) 140.0 03/07/2011 [facility] Center Diastolic (mm Hg) 66.0 [facility]/07[facility]2011 [facility] Temperature Oral (F) 98.4 F 03/07/2011 [facility] Diastolic (mm Hg) 69.0 03/07/2011 [facility] Center Systolic (mm Hg) 140.0 03/07/2011 [facility] dical Center Respitory Rate 20.0 03/07/2011 [facility] Center Temperature Oral (F) 98.6 F 03/07/2011 [facility] Heart Rate 115.0 03/07/2011 [facility] Systolic (mm Hg) 131.0 03/06/2011 [facility] dical Center Temperature Oral (F) 97.6 F 03/06/2011 [facility] Center Respitory Rate 18.0 03/06/2011 [facility] Heart Rate 104.0 03/06/2011 [facility] Diastolic (mm Hg) 44.0 03/06/2011 [facility] Center Height 149.86 cm 02/26/2011 [facility] Weight 90.909 02/26/2011 [facility] Temperature Oral (F) 98.2 F 02/26/2011 [facility] Heart Rate 90.0 02/26/2011 [facility] Respitory Rate 18.0 02/26/2011 [facility] Systolic (mm Hg) 154.0 02/26/2011 [facility]ical Center Diastolic (mm Hg) 54.0 02/26/2011 [facility] Center Temperature Oral (F) 98.9 F 02/26/2011 [facility] Heart Rate 93.0 02/26/2011 [facility] Respitory Rate 18.0 02/26/2011 [facility] Systolic (mm Hg) 153.0 02/26/2011 [facility] dical Center Diastolic (mm Hg) 60.0 02/26/2011 [facility] Center Temperature Oral (F) 98.7 F 02/26/2011 [facility] Center Respitory Rate 20.0 02/26/2011 [facility] Systolic (mm Hg) 149.0 02/26/2011 [facility]ical Center Diastolic (mm Hg) 62.0 02/26/2011 [facility] Center Heart Rate 95.0 02/25/2011 [facility] Weight 100.0 02/20/2011 [facility] Height 149.86 cm 02/19/2011 [facility] Weight 100.0 02[facility]19/[facility] Heart Rate 104.0 02/19/[facility] Temperature Oral (F) 98.6 F 02/19/2011 [facility] Center Respitory Rate 20.0 02/19/2011 [facility] Systolic (mm Hg) 128.0 02/19/2011 [facility] Center Diastolic (mm Hg) 63.0 02/19/2011 [facility] Center Respitory Rate 20.0 02/19/2011 [facility] Systolic (mm Hg) 115.0 02/19/2011 [facility] Center Diastolic (mm Hg) 58.0 02/19/2011 [facility] Center Heart Rate 110.0 02/19/2011 [facility] Temperature Oral (F) 97.5 F 02/19/2011 [facility] Diastolic (mm Hg) 64.0 02/18/2011 [facility] Center Temperature Oral (F) 98.4 F 02/18/2011 [facility] Heart Rate 108.0 02/18/2011 [facility] Respitory Rate 18.0 02/18/2011 [facility] Systolic (mm Hg) 152.0 02/18/2011 [facility] Center Height 149.86 cm 01/31/2011 [facility] Weight 100.455 01/31/2011 [facility] Systolic (mm Hg) 116.0 01/31/2011 [facility] Diastolic (mm Hg) 55.0 01/31/2011 [facility] Peripheral Pulse Rate 67.0 01/31/2011 [facility] Respitory Rate 20.0 01/31/2011 [facility] Temperature Oral (F) 98.5 F 01/31/2011 [facility] Peripheral Pulse Rate 65.0 01/31/2011 [facility] Systolic (mm Hg) 148.0 01/31/2011 [facility]ical Center Diastolic (mm Hg) 58.0 01/31/2011 [facility] Diastolic (mm Hg) 62.0 01/31/2011 [facility] Peripheral Pulse Rate 64.0 01/31/2011 [facility] System [facility] Systolic (mm Hg) 153.0 01/31/2011 [facility].0 01/31/2011 [facility] Temperature Oral (F) 97.8 F 01/31/2011 [facility] Respitory Rate 16.0 01/31/2011 [facility] Temperature Oral (F) 98.1 F 01/31/2011 [facility] Height 149.86 cm 01/23/2011 [facility] Weight 89.0 01/23/2011 [facility] Encounters Location Location Encounter Encounter Reason Attending ADM DC Stat us Source Details Type Number For Provider Date Date Visit [facility] AA [id number] LIFE ANKUR CARABALLO 01/23 01/23 Active [facility] 0 FLIGHT [facility] Inpatient [id number] BRAIN KELLEY DAY 01/23 01/31 Act kimberly [facility] 7 MASS/DONNIE Medical [facility] Center IR [id number] BRAIN MEILANI 01/31 02/19 Active 4 MASS [facility] Inpatient [id number] HYDROCEP KELLEY DAY 02/19 02/26 A ctive [facility] 0 HALUS /2010 [facility] IR [id number] SDH MEILANI 02/26 03/07 Active [facility] 9 [facility] Re[facility] t[facility] OU [id number] DEHYDRAT MI 03/14 03/15 Active [facility] 1 ION KORIMILLI /[address] Inpatient [id number] DEHYDRAT NOÉ 03/22 03/25 Activ e [facility] 2 ION,PAIN [facility] MNA Phone [id number] 08/16 08/18 Misch er [facility]surger [facility] [id number] Malia 08/16 08/20 [facility] 5 Dayan [facility] Inpatient [id number] Sadi 09/09 09/10 [facility] 0 [facility] Inpatient [id number] Kasi Ownby 09/12 09/20 [facility] 1 [facility] Observation [id number] David 09/21 09/23 [facility] 3 Hellen [facility] Outpt Diag [id number] Suur 10/21 10/22 [facility] 3 Bilici [facility] Outpt Diag [id number] Suur 11/18 11/19 [facility] 4 Bilici [facility] Emergency [id number] Abel 11/29 11/29 [facility] 6 Stan [facility] Inpatient [id number] Luther 12/24 01/10 [facility] 7 Taj [facility] Inpatient [id number] Jai 02/05 03/04 [facility] 0 [facility] Procedures Procedure Code Date Perfomer Comments Source Transcatheter [id number] 02/21/2019 [facility] retrieval, Medical percutaneous, of Center intravascular foreign body (eg, fractured venous or arterial catheter), includes radiological supervision and interpretation, and imaging guidance (ultrasound or fluoroscopy), when performed Selective catheter [id number] 08/19/2018 [place] as placement, vertebral Medi roger artery, unilateral, Cente r with angiography of the ipsilateral vertebral circulation and all associated radiological supervision and interpretation, includes angiography of the cervicocerebral arch, when performed Insertion or [id number] 01/26/2011 [facility] Replacement of Skull Medi roger Tongs or [facility] Center Traction Device Other Excision or [id number] 01/26/2011 [place] Dest[place]ion Med ical or Tissue of Brain Nelson Excision of Lesion or [id number] 01/24/2011 [facility] Intracranial Pressure 01.10 01/24/2011 [facility] Transfusion of Packed [id number] 01/24/2011 [facility] Cervical laminectomy [id number] [facility] her Neuro,[facility] section [id number] [facility] Neuro,[facility] Resection [id number] [facility] Shunt construction [id number] [facility] Tonsillectomy [id number] [facility] Assessment and Plan Assessment and Plan Date Source Extracted from:Title: Neurology Discharge Summary 09/20/2018 [facility] Author: Sean Coy MD Date: 09/19/18 INPATIENT NEUROLOGY DISCHARGE SUMMARY Patient Name: Franci Lange Date of Admission: 09/12/18 Date of Discharge: 09/19/18 Admission Diagnosis: Weakness, Dysphagia Discharge Diagnoses: Bulbar Myasthenia Gravis Consults Obtained: Opthalmology, ENT Brief HPI: Mrs. Lange is a 73 y.o. 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 She is uncooperative with questions so most of the history is given by her . He reports that she developed progressive dysphagia over the past few week s, with significant worsening over the p ast few days which culminated in her choking on a single piece of meat at a restaurant before going to the outside hospital. There, she also complained of intermi ttent vision loss and pain in her left e ye so ophthalmology evaluated her and had concerns for HSV keratitis and started her on acyclovir. She denies difficulty breathing, weakness, numbness, any pain a t this time. She denies feeling a worsen ing of her difficulty swallowing towards the end of the day. denies and worsening of her facial drooping towards the end of the day. She failed MBS and sp eech evaluation at outside hospital prior to transfer. Hospital Course: The patient was admitte d to our service with complaints of weakness and dysphagia. EMG and clinical exam were consistent with myasthenia. The patient refused alex placement for PLEX, preferred IVIG even though the the ris ks and benefits were explained to her, including that the PLEX would be more fast acting and effective. IVIg started 09/10. Respiratory status continuing to declin e. She is adamantly refusing feeding tub e placement. The patient initially refused elective intubation, but later she agreed to it after rounds in the AM. She did refuse intubation once anesthesia arr ived; also declined chest compressions a nd was briefly made DNR/DNI. Her respiratory status continued to decline with NIF -10, FVC 0.2- changed her mind to become full code now and agreed for intubation . Mestinon and prednisone were started o nce anti-striated muscle antibodies came back positive. Resipratory status improved to FVC 0.95, and the patient was extubated. The patient was able to tolerate a dysphagia diet and was recommended to go home with outpatient PT/OT. On 09/19 patient neurological exam stable and patient deemed to be good candidate for discharge to home. Our work up was as follows: CTA H&N 08/19: greater than 50% stenosis in the right internal carotid artery. Cerebral arteriography from 08/19/2018 reveals no aneurysm. There is 50% stenosis of the ophthalmic segment of the left internal carotid artery, likely atherosclerotic in mariela ure. MRI brain and orbit 08/18: bilateral gloria rowing of the orbital apices including the optic canals and superior orbital fissures. These changes are due to residual intraosseous meningioma. CT chest 08/18: IMPRESSION: 1. Multiple bilateral centrilobular pat junior and nodular groundglass opacities associated with bronchial wall thickening and mosaic attenuation in both lungs raising the possibility of small airway disea se like infectious or inflammatory bronc hiolitis. Chest CT follow-up in 3 months can be performed for evaluation following adequate treatment. 2. No evidence of mediastinal mass identified in the curren t study. 3. Multiple prominent to mildly enlarge d mediastinal and paratracheal lymph nodes are noted measuring up to 8 mm in short axis. The may be benign or neoplastic. 4. Narrowing of the right subclavian vein just below the ri ght clavicular. 5. 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 6. Please refer to the separate report of neck soft tissue CT for further details about the neck findings. 7. Aortic atherosclerotic disease. Brain w/wo contrast MRI 09/14/2018 14:19 Impression: Slight interval enlargement of planum sp henoidale meningioma in comparison to brain MRI from [...] 98 --- 09/19 08:45 ---- ---- ---- - ---- --- --- 16 98 --- --- 09/19 [...] or fibrillations. Motor: neck flexion 4/5 fatigable, shoul bebe flexion 4+/5 fatigues to 4-/5; 4/5 b/l [...] Important Plans for Future Care: [facility]. Please call . Clinic located at [address], [address] [place], [place] [address]. PCP follow-up within 2 weeks Discharge Instructions: Please continue to take all medications as prescribed and follow up as intstructed. 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 Discharge To Location: Home Please call our nurse coordinator at [phone] if you have any questions/concerns. Thank you, [facility] Extracted from:Title: Neurology Progress Note Author: Sanchez La MD Date: 09/18/18 General Neurology Progress Note Patient: Franci Lange Overnight events: No acute events overnight. Hospital course: EMG and clinical exam c onsistent with myasthenia. Antibodies pending. Patient refused alex placement for PLEX, preferred IVIG treatment even though the the associated risks and benef its were explained to her, including cherrie t the PLEX would be more fast acting and effective. IVIg started 09/10. Respiratory status continuing to decline. She is adamantly refusing feeding tube placement. 09/12: Elective intubation was discussed with her, and though she intially refused, she agreed to it after rounds in the AM. However, she changes her mind often, and may refuse again. She did refuse intubation once anesthesi a arrived; also declined chest compressions and was briefly made DNR/DNI. Her respiratory status continued to decline with NIF -10, FVC 0.2- changed her mind to become full code now and agreed for intubation. 09/13: started mestinon and prednisone. FCV 0.5. 09/15: improving, FVC 0.95, extubated 09/16: still in the ICU for close monitor of respiratory stat us 09/17: started dysphagia diet, transfer to [facility]. PT/OT recomm ended home with HH 09/18 patient continues to do well, if shayna molina continues to do well tomorrow, patient may be able to discharge home. Chief Complaint: difficulty swallowing History of Present Illness: Mrs. Lange is a 73 y.o. 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 She is uncooperative with questions so most of the history is given by her . He reports that she developed progressive dysphagia over the past few week s, with significant worsening over the p ast few days which culminated in her choking on a single piece of meat at a restaurant before going to the outside hospital. There, she also complained of intermi ttent vision loss and pain in her left e ye so ophthalmology evaluated her and had concerns for HSV keratitis and started her on acyclovir. She denies difficulty breathing, weakness, numbness, any pain a t this time. 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 Medications: ramipril, amlodipine, furos emide, clopidogrel, rosuvastatin, metoprolol, ropinirole, insulin Allergies: cefepime, ciprofloxacin, bal isone, erythromycin, penicillin, phenobarbital, aspirin Physical Exam: Vitals Tmp(F) Tmp(C) Ttype B P MAP Pulse RR SpO2 FIO2 ETCO2 09/18 10:00 ---- ---- ---- 1 3666 91 58 22 99 --- --- 09/18 09:00 ---- ---- ---- 1 54/87 113 57 20 97 --- --- 09/18 08:00 97.1 36.17 oral 164/91 122 57 19 98 --- --- 09/18 07:00 ---- ---- ---- 1 83 56 -- 96 --- --- 09/18 06:00 ---- ---- ---- 1 75 50 22 95 --- --- GENERAL: [...] one breath Motor: neck flexion 4/5 fatigable, shoul bebe flexion 4+/5 fatigues to 4-/5; 4/5 b/l [...] 09/16/18 insulin isophane (insulin isophane-NPH) 5 unit SUB- Q Q8H 09/13/18 metoprolol (metoprolol tartrate) 25 mg [...] vaccine 0.5 mL IM ONCALL PRN Meds (): 09/17/18 Dextrose 50% in Water IV (Dextr ose 50% in Water (bolus) IV) 12.5 gm IVP PRN 09/17/18 Dextrose 50% in Water IV (Dextr ose 50% in Water (bolus) IV) 25 gm [...] mg IV Q10Min 09/14/18 nystatin topical (nystatin topi roger 100,000 units/g powder) 1 appl TOP PRN 09/10/18 sodium chloride (Saline Flush 0.9%) 10 ml IVP PRN 09/10/18 sodium chloride (Saline Flush 0.9%) 5 mL IV PRN 09/14/18 sodium chloride (Saline Flush 0.9%) 10 ml IVP PRN One Time Meds (1): 09/18/18 (Discontinued) gabapentin (andry apentin 300 mg oral capsule) 300 mg PO ONCE Continuous Infusions (1): 09/18/18 Sodium Chloride 0.9% IV 1,000 m L (normal saline 0.9% IV 1,000 mL) 1,000 mL 75 ml/hr Imaging and Diagnostics: CTA H&N 08/19: greater than 50% stenosis in the right internal carotid artery. Cerebral arteriography from 08/19/2018 reveals no aneurysm. There is 50% stenosis of the ophthalmic segment of the left internal carotid artery, likely atherosclerotic in mariela ure. MRI brain and orbit 08/18: bilateral gloria rowing of the orbital apices including the optic canals and superior orbital fissures. These changes are due to residual intraosseous meningioma. CT chest 08/18: IMPRESSION: 1. Multiple bilateral centrilobular pat junior and nodular groundglass opacities associated with bronchial wall thickening and mosaic attenuation in both lungs raising the possibility of small airway disea se like infectious or inflammatory bronc hiolitis. Chest CT follow-up in 3 months can be performed for evaluation following adequate treatment. 2. No evidence of mediastinal mass identified in the curren t study. 3. Multiple prominent to mildly enlarge d mediastinal and paratracheal lymph nodes are noted measuring up to 8 mm in short axis. The may be benign or neoplastic. 4. Narrowing of the right subclavian vein just below the ri ght clavicular. 5. 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 6. Please refer to the separate report of neck soft tissue CT for further details about the neck findings. 7. Aortic atherosclerotic disease. 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 ABS positive: anti striated muscle antibody -Pulmonary function tests Qshift -IVIg 2g/kg, finished 09/13. -Continue mestinon 60 q8, prednisone 60 mg daily -Discussed case with Dr. Delgado (neur omuscular) who indicated patient will require IVIG q3 weeks (1gr/kg) and then outpatient follow up for possible immunomodulation therapy. ---if patient continues to do well tomor row, pending PT/OT/BIOMEDICAL REPAIR TECHNICIAN recs, the patient may be able to discharge tomorrow. Concern for residual meningioma -MRI w/wo contrast: Slight interval enla rgement of planum sphenoidale meningioma in comparison to brain MRI from 07/07/2012. AP diameter is now up to 2.4 cm, previously 2.1 cm. Suprasellar involvement l sebastian to optic chiasm compression. The le willie also surrounds the optic nerves as they exit from the orbital apices bilaterally. No cranial nerve enhancement or compressive lesion of the lower cranial ner ves is detected to account for the patient's clinical findin gs. Decreased L eye vision L eye pain ---Diagnosed as possible [facility] ker[facility] ---Optho consulted- opined dry eyes; sta rted lacrilube, bacitracin, artifical tears Depression -sertraline 25 mg daily Lung nodules with mediastinal lymph node involvement- noted on CT in 07/2018 -Will repeat CT chest w contrast -Consult IR vs pulm for potential biopsy Parotid Mass ---ENT consulted for evaluation of parot id mass with concern for neoplastic process on MRI ---They feel it is not related to helio baker and can be worked up as an outpatient with follow up with their clinic in 2 weeks. HTN ---Will be careful with metoprolol as this can exacerbate my asthenia symptoms ---On amlodipine 10, ramipril 10, metoprolol succ 100 mg at home ---Will restart amlodipine, ramipril at full dose, metoprolol succ at 50 mg and will titrate as needed. DM ---On oral antihyperglycemics at home an d glargine 10 u qam and 20 u qhs- has been noncompliant for a year, oral meds held while inpatient ---SSI History of heparin induced thrombocytopenia ---Will hold heparin SQ, will order SCDS for DVT PPX and consider Xa inhibitor while inpatient. 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 Platelets dropping by 20k/d. - JAK2 sent; concern for myeloproliferative neoplasm - CT abd/pelvis neg for splenomegaly but does have hepatic p arenchymal disease Diet Dysphagia -- 09/17/18 9:48:00 CDT, Dysphagia Level Dysphagia-Regular, Liquid Consistency Thick Liquids-Consistency [place], No concentrated sweets Oral Supplements -- 09/16/18 14:43:00 CDT, TID Code Status: Full Code.Palliative on boa rd to assist with GOC and code discussions as patient changes her mind frequently. Has indicated that she wants her to be her medical power of commonwealth attorney permanently. He agrees with full code. DVT: fondaparinaux 2.5 subQ Dispo: home with DAMI La MD Psychiatry PGY1 Addendum by Sean Coy MD on 09/22/2018 00:18 Neurology Attending The patient was seen and examined by me with the resident and I agree with the History/Exam documented. Greater than 30 min was spent in the care of this critical p atient Sean Coy MD Extracted from:Title: Supportive Medicine Consult Note Author: Nely Britt MD Date: 09/13/18 The patient is a 73 y.o. 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 Supportive medicine was consulted for goals of care discussion. #Goals of care/palliative -The patient does not have an advanced directive. -CODE STATUS is currently full code. -The next of kin is the patient's [phone]. -Unable to discussgoals of care today si nce the patient refused jacek seenanddiscussed with us. We will try again tomorrowto see if the patient will bemore open to discuss. -If the patient remains agitated and ref usesdiscussions and treatments,she might needcapacity evaluationfor the medical decisions. #Symptom management -Shortness of breath: Currently intubated. -Constipation: The patient did not have any bowel movement since admission. Please start the patient onsenna2 tabletstwice daily,RwmoXDP14nurly twice dailyandbisacodyl suppository as neededfor constipation. -Pain: Unable to assesspain severitysince the patient refuse s to communicate. #Psychosocial -The patient iscurrently having adjustme nt disordersecondary tomedical problemsand not being able tocontrol her lifeas she used to be. She would benefit fromcounseling by social work. The patient was seen and discussed with Dr. Vila who formulated the plan above. Thank you for the opportunity to participate in the care of this patient. We will follow along with you. For any questions o r concerns, please page us via the Memor jumana Azul [facility] page tube making machine operator or via the following pager: [phone], [phone]. Nely Britt MD PGY2 [facility] Internal Medicine ATTENDING ATTESTATION I have personally interviewed and examin ed this patient with the resident, Dr. Britt on 09/13. I agree with the exam and plans documented in the resident's note above. I have personally reviewed the patient's pertinent labs and radiology results. Upon my visit the patient declined any f urther discussion by shaking her head. Perfamily in [...] decis ionmaking in the future. The patient cur rently declines to have a discussion today, however. Per family we should return tomorrow to try again. We will do so. Dyspnea: secondary to respiratory failur e. eGFR is borderline for morphine use. Would consider fentanyl 10 or 25 mcg IVas first choiceif opioids are needed fordyspnea. Constipation: Goal for daily bowel movem ent. Recommend senna 1 to 4 tablets PO BID PRN and miralax 17g PO BID PRN, titrated to daily BM. If no BM 3 days or more, recommend bisacodyl supp MI BID PRN cons tipation. If no BM 5 days or more sugges t milk and molasses enema up to every 8 hours until BM. We have discussed the patient with primary team physician. Thank you for the opportunity to partici mckeon in this patient's care. We will follow along with you. [facility] Pager:#[phone](24 hours / 7 days) Extracted from:Title: Discharge Summary 09/10/[address] [facility] Author: Sadi Cortés MD Date: 09/09/18 Discharge Information Discharge Summary Information: Discharg e diagnosis, Discharge medications (See Discharge Medications). 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 Discharge instructions given. Discharge disposition: Higher level of care. Discharge planning greater than 30 minutes Extracted from:Title: Clinical Document Author: Kasi Amato MD Date: 09/09/18 NEUROLOGY and CRITICAL CARE MEDICINE [facility] Consultation / Progress Note Assessment / Recommendations / Plan Right eye pain Ophthalmology consultation appreciated. The pain is now resolved, but was li kristina secondary to right corneal desiccation versus subtle abrasion. Possibility of early herpetic conjunctivitis. Acyclovir drops initiated. Diminished vision from left eye (? ... not) Ophthalmology found 20/20 vision fro m the left eye, and no peripheral visual [...] Medical Center ([facility]) They wish to continue to seek medical care here at [facility]. History of Present Illness 73F Presents (09/07/18) [...] Family thinks the patient is taking her medica tion incorrectly Ramipril 10 mg daily Metoprolol 25 [...] GI No nausea, vomiting, diahhrea, melena, blood MI. No new urgency, frequency, pain, or urine malodor. Vital Signs (last 24 hrs) Last Charted _ Heart Rate Apical 78 bpm (SEP 09:) Resp Rate H 22BRMIN (SEP 09:) SBP 125 mmHg (SEP 09:) DBP L 46mmHg (SEP 09:) SpO2 96 % (SEP 09:00) Exam Neuro Awake. Alert. A bit dull, but during conversation, but smiles with humor. Conversational, but defers conversation to when he is here. Mild conjuctival injection OD. Ptosis mild (b). Pupils are equally round about 2 mm, and briskly reactiv e bilaterally. Primary gaze is midline. Ocular pur suits and range of motion appear normal. No lateral nystagmus. No facial asymmetries. Cranial post surgical changes are immediately evident. Speech was articulate. Fluent, if slow. Comprehension intact. [employer]el[employer] Analyst were surprisingly strong bilaterally. The patient was slowly ambulatory with physical therapy earlier. Lungs Clear bilaterally anteriorly. Heart Regular rhythm. No murmurs. Abd Moderately overweight. Skin Warm. Dry. Evaluations CT Head (08/16/18) No acute intracranial abnormality. No acute intracranial hemorrhage. Postoperative changes of right front al craniotomy and right frontal lobe encephalomalacia from remote right frontal mass resection. Left transfrontal ventricular shunt in place. No e vidence of hydrocephalus. Conversely, there is decompression o f the ventricular system by the ventriculoperitoneal shunt in the interim. Slight interval enlargement of planu m sphenoidale meningioma in comparison to brain MRI from 07/07/2012. AP diameter is now up to 2.4 cm, previously 2.1 cm. CTA Head and Neck (08/16/18) Atheromatous disease in the carotid bulbs not resulting in significant stenosis by NASCET criteria. Greater than 50% stenosis in the par a and supraclinoid right internal carotid artery. No flow-limiting stenotic lesions in both anger control counselor. Aberrant right subclavian artery CT Chest (08/18/18) For left Brendan syndrome Multiple bilateral centrilobular pat junior and nodular groundglass opacities associated with bronchial wall thickening and mosaic attenuation in both lungs raising the possibility of small airway disease like infectious or inflammatory bronchiolitis. Chest CT follow-up in 3 months can b e performed for evaluation following adequate treatment. No evidence of mediastinal mass identified in the curren t study. Multiple prominent to mildly enlarge d mediastinal and paratracheal lymph nodes measuring up to 8 mm in short axis. The may be benign or neoplastic. Narrowing of the right subclavian vein just below the ri ght clavicular. 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 Aortic atherosclerotic disease. 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 Changes of diffuse idiopathic skeletal hyperostosis in t he cervical spine. Postsurgical changes of pterional ap proach craniotomy and of laminectomies of C2 are seen. Ventricular shunt catheter in place. MRI Brain and Orbit (08/18/18) Increased size and extent of hyperos totic marrow signal change in the central skull base, with narrowing of the bilateral orbi costa apices including the optic canals and superior orbital fissures. These findings could explain reported cranial nerve symp toms. These bony changes are presumably du e to a combination of residual intraosseous meningioma and associated reactive hyperostosis (with diffuse calvarial inner table hyperostosis and cervical/thoracic diffuse hepatic skeletal hyperostosi s suggesting the patient is prone to reactive bone formation). Contrast-enhanced study would be helpful to further eval uate, which of the abnormality represents residual/recurrent m eningioma. Narrowing of the supraclinoid right internal carotid artery as it traverses the hyperostotic changes is redemonstrated. Unchanged right frontal and right te mporal cystic encephalomalacia with adjacent gliosis. Unchanged ventricular caliber and position of left frontal ventriculostomy. ECHO (08/18/18) Definity echocardiogra phic contrast was utilized for endocardial border delineation LV Left ventricular chamber size is normal and systolic function is at lower limit of normal with the LV ejection fraction estimated at 50-55%. Hypokinetic basal inferolateral, bas al inferoseptal, and mid inferolateral wall segments RV [...] prior TTE on 01/23/11, there is no s ignificant change. Cerebral arteriography (08/19/18) No aneurysm, or any other vascular l esion to explain the patient's acute neurologic deficit. 50% stenosis of the ophthalmic segme nt of the left internal carotid artery, likely atherosclerotic in nature. Narrowing of the ophthalmic and comm unicating segments of the right internal carotid artery, associated with absence of the right A1 segment, felt to be secondary to tumor encasement. Hypervascular subcutaneous lesion in the left parotid region, likely neoplastic in nature. Ambulatory high-resolution ultrasoun d examination would be helpful for better characterization. Atheromatous plaques in the carotid bifurcations and vertebral basilar system, without hemodynamically significant stenosis. EKG (08/19/18) Sinus rhythm Possible septal myocardial infarction (old, seen on prio r studies) Inferior myocardial infarction (old, seen on prior studi es) Lateral T wave abnormalities, consistent with ischemia - - - - - - - - - - - - - - - - EKG (09/07/18) [facility] Sinus rhythm Inferior infarction Anterior infarction T wave abnormality, consider lateral ischemia CT Head (09/07/18) [facility] (Report) Right frontal craniotomy. Orbits [...] 08) INR 1.05 (SEP 08) PTT 32.0 (SEP 08) [facility] (09/07/18) WBC 7.4, normal differential. Hgb 17.0, HCT 51, MCV 92. PL T 149. NA 142, K4.1, CL 107, HCO3 30. BUN 24, CR 1.57. GLU 176. GFR estimated 32. CA 9.4. MG 1.9. AST 36, ALT 41. AP 160 (H). Bili 0.7. TP 7.9, ALB 3.3 (L) . PT 13.0, INR 1.11. 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 Speech therapy to evaluate the patient PT/OT eval and treat Will reconsult meds once achieved by family Neurochecks per protocol Supportive care management Extracted from:Title: Ophthalmology Consult Note 08/20/2018 [facility] Author: Sivan Thomas MD Date: 08/17/18 CONSULTATION OPHTHALMOLOGY PATIENT NAME: FRANCI LANGE MR #: [id number] ROOM: [place] [address] REQUESTING TEAM/ATTENDING: ED DATE OF CONSULT: 08/17/2018 CONSULTING ATTENDING: Kalani Jacobo MD CONSULTING RESIDENT: Sivan Laws MD REASON FOR CONSULT: left ptosis CHART REVIEWED: YES HISTORY OF PRESENT ILLNESS: 73 year old female with HTN, HLD, planum sphenoidal meningioma, right frontal craniotomy for meningioma s/p resection in 2010, hydrocephalus s/p craniectomy and 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 Ready to evelyn: No. Household tobacco concerns: No. Tobacco smoke [...] EXAMINATION: Neuro/MS: The patient is alert and orien porsche to person, place and time. The mental [...] --> 2 mm +relative afferent pupillary defect not ed. Left: 3 mm --> 2 mm with normal direct and consensual response. No relative afferent pupillary defect noted INTRAOCULAR PRESSURE: Symmetric and norm al to palpation both eyes. Right eye 18, left eye 21 using the [employer]open. EXTERNAL: [...] RATIO: 0.6 POSTERIOR SEGMENT: cotton wool spot infe rior arcade, small intraretinal hemorrhage superior to disc; macula with RPE changes, attenuated vessels, periphery within normal limits Left: OPTIC NERVE: pink, healthy nerve C:D RATIO: 0.2 POSTERIOR SEGMENT: macula with RPE box es, vessels, periphery within normal limits IMAGING: None PROCEDURES PERFORMED: None DIAGNOSES/RECOMMENDATION: 1. Ptosis, left eye 2. 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 Please call if any changes develops. Thank you for your consult. Patient instructed to call for an appoin tment to follow up with her primary commissary production supervisor or Dr. Kalani Jacobo at the [facility] upon discharge (Located: [address] [place] [address], 18th floor, ) or i f patient has a [employer] Card/ has pending application they can follow up at [facility] ([address] [address] ) Sivan Laws MD Ophthalmology PGY2 [facility] Plan of Care No Data Provided for This Section Social History Social History Date Source Social History TypeResponse 09/08/[address] [facility] [place] Substance Abuse Use: None. Alcohol Current, Frequency: 1-2 times per year. Smoking Status Never smoker; Exposure to Tobacco Smoke None; Cigarette Smoking Last 365 Days No; Reg Smoking Cessation Counseling No entered on: 09/08/18 Social History TypeResponse 09/08/2018 [facility] Substance Abuse Use: None. Alcohol Current, Frequency: 1-2 times per year. Smoking Status Never smoker; Ready to change: No; Araseli rns about tobacco use in household: No; Exposure to Tobacco Smoke None; Cigarette Smoking Last 365 Days No; Reg Smoking Cessation Counseling No entered on: 09/21/18 Social History TypeResponse 09/08/2018 [facility] Alcohol Current, Frequency: 1-2 times per year. Substance Abuse Use: None. Smoking Status Never smoker; Ready to change: No; Araseli rns about tobacco use in household: No; Exposure to Tobacco Smoke None; Cigarette Smoking Last 365 Days No; Reg Smoking Cessation Counseling No entered on: 02/05/19 Social History TypeResponse 08/17/2018 [facility] Alcohol Never Smoking Status Never smoker; Ready to change: No; Araseli rns about tobacco use in household: No; Exposure to Tobacco Smoke None; Cigarette Smoking Last 365 Days No; Reg Smoking Cessation Counseling No entered on: 08/16/18 Family History No Data Provided for This Section Advance Directives No Data Provided for This Section Functional Status No Data Provided for This Section
[2019-11-21] MEDS ORDERED: ACETAMINOPHEN 500 MG TAB ONE (22:34)
--- OUTSIDE RECORDS SUMMARY | 2019-11-21 22:53 | XMS REPORT | Continuity of Care Document ---
:1945 Author Organization [facility] t Address [address] [place] [address] Care Team Providers Name Role Phone Ayush Scott Primary Care Physician Unavailable NOELLE Attending Clinician Unavailable Chris Jim Attending Clinician Lyric Attending Clinician Charis Pierce Attending Clinician Noelle Attending Clinician Donnell Macedo Attending Clinician Luis Coy Attending Clinician Yasir Cortés Attending Clinician SOSA SANTANA Attending Clinician Unavailable Chris Jim Admitting Clinician Luis Coy Admitting Clinician Donnell Macedo Admitting Clinician Alyx Hanley Admitting Clinician Yasir Cortés Admitting Clinician SOSA SANTANA Admitting Clinician Unavailable Problems Condition Condition Condition Status Onset Resolution Last Treating Co mments Source Name Details Category Date Date Treatment Clinician Date MYASTHENIA Diagnosis Active 2019-03-10 Memoria GRAVIS 02-05 22:12:00 l WEAKNESS 00:00: [place] MYASTHENIA 00 GRAVIS WEAKNESS Active 02/05/2019 [facility] MYASTHENIA Diagnosis Active 2019-01-04 Memoria GRAVIS 12-24 08:31:00 l 00:00: Jorge Alberto MYASTHENIA 00 GRAVIS Active 12/24/2018 [facility] DIABETIC Diagnosis Active 2018-12-08 M emoria 7-01 05:43:00 l DIABETIC 00:00: [place] n 00 Active 11/29/2018 [facility] DYSPHAGIA Diagnosis Active 2018-09-30 Memoria 4-11 08:27:00 l 00:00: [place] DYSPHAGIA 00 Active 09/09/2018 [facility] RESOLVED Diagnosis Active 2018-09-22 M emoria VISION 4-10 15:15:00 l LOSS IN RESOLVED 00:00: Gerda nn LEFT EYE VISION 00 LOSS IN LEFT EYE Active 09/08/2018 [facility] SLURRED Diagnosis Active 2018-08-26 Me moria SPEECH 3-18 22:20:00 l SLURRED 00:00: Jorge Alberto SPEECH 00 Active 08/16/2018 [facility] STROKE Diagnosis Active 2018-08-16 Mem oria SYMPTOMS 3-18 20:18:00 l STROKE 00:00: Jorge Alberto SYMPTOMS 00 Active 08/16/2018 [facility] Trigger Trigger Disease Active [facility] [address] [place] [address] Benign Problem Active 2018-12-01 Memor ia neoplasm 1-14 21:28:18 l of Benign 00:00: [place] cerebral neoplasm 00 meninges of (disorder) cerebral meninges (disorder) Active 06/14/2012 Problem 12/01/2018 Data migrated from [facility] on 01/23/15. Julia Neuro,[facility], Natasha Acosta [facility] BAD Diagnosis Active 2010-062011-03-22 Mem oria REACTION 0-22 06:07:00 l TO BAD 00:00: Jorge Alberto MEDICATION REACTION 00 TO MEDICATION Active 03/22/2011 [facility] DEHYDRATIO Diagnosis Active 2010-062011-03-27 Memoria N,PAIN 0-22 13:56:00 l CONTROL 00:00: Jorge Alberto DEHYDRATIO 00 N,PAIN CONTROL Active 03/22/2011 [facility] LEG CRAMPS Diagnosis Active 2010-062011-03-14 Memoria 0-13 04:56:00 l LEG 00:00: Jorge Alberto CRAMPS 00 Active 03/13/2011 [facility] DEHYDRATIO Diagnosis Active 2010-062011-03-17 Memoria N 0-13 12:08:00 l 00:00: [place] DEHYDRATIO 00 N Active 03/13/2011 [facility] SDH Diagnosis Active 2011-03-20 Mem oria 02-24 21:57:00 l SDH 06:00: [place] 00 Active 02/24/2011 Rehabilita tion DM - Problem Active 2011-03-27 Memor ia Diabetes 02-18 08:54:23 l mellitus DM - 00:00: Jorge Alberto Diabetes 00 mellitus Active 02/18/2011 Problem 03/27/2011 [facility] HYDROCEPHA Diagnosis Active 2011-03-05 Memoria TANJA 01-31 21:52:00 l 00:00: [place] HYDROCEPHA 00 TANJA Active 01/31/2011 [facility] BRAIN MASS Diagnosis Active 2011-02-20 Memoria 01-30 14:11:00 l BRAIN 06:00: Jorge Alberto MASS 00 Active 01/30/2011 Rehabilita tion BRAIN Diagnosis Active 2011-02-04 Mem oria MASS/AWAKE 01-23 11:31:00 l BRAIN 00:00: [place] MASS/AWAKE 00 Active 01/23/2011 [facility] LIFE Diagnosis Active 2011-02-20 Mem oria FLIGHT 01-23 14:11:00 l LIFE 00:00: Jorge Alberto FLIGHT 00 Active 01/23/2011 [facility] Increased Increased Problem Active Uni vers Pressure Pressure ity of [place] Physici ans History of History of Problem Resolve Univers hyperlipid hyperlipid d it y of em[place] emia [place] Physici ans History of History of Problem Resolve Univers essential essential d ity of hypertens[place] Physici ans History of History of Problem Resolve Univers meningioma meningioma d it y of [place] Physici ans Myasthenia Myasthenia Problem Active U nivers gravis in gravis in ity of crisis crisis [place] [facility]ici [facility] Myasthenia Myasthenia Problem Active U nivers gravis gravis ity of [place] [facility]ici ans Osteoporos Osteoporos Problem Active U nivers is is ity of [place] [facility]ici ans Osteopenia Osteopenia Problem Active U nivers ity of [place] [facility] Pneumonia Pneumonia Problem Active Uni vers ity of [place] [facility] Depression Depression Problem Active U nivers ity of [place] [facility] Arthritis Arthritis Problem Active Uni vers ity of [place] [facility] Back pain Back pain Problem Active Uni vers ity of [place] [facility] Encounter Encounter Problem Active Uni vers for care for care ity of [place] ys[facility] h ans Illness, Problem 2018-09-11 Mem oria unspecifie 23:20:51 l d Illness, [place] n unspecifie d 09/11/2018 [facility] Lethargic Problem Inactiv 2011-03-27 M emoria e 08:54:23 l [place] Lethargic Inactive Problem 03/27/2011 [facility] Blindness Problem Resolve 2019-03-06 M emoria of one eye d 22:08:11 l (disorder) [place] n Blindness of one eye (disorder) Resolved Problem 03/06/2019 right eye [facility], [facility] Coronary Problem Resolve 2019-03-06 Me moria arterioscl d 22:08:11 l erosis Coronary [place] (disorder) arterioscl erosis (disorder) Resolved Problem 03/06/2019 [facility], [facility] Diabetes Problem Resolve 2019-03-06 Me moria mellitus d 22:08:11 l (disorder) Diabetes He rmann mellitus (disorder) Resolved Problem 03/06/2019 [facility], [facility] Heart Problem Resolve 2019-03-06 Kalia aida failure d 22:08:11 l (disorder) Heart Gerda nn failure (disorder) Resolved Problem 03/06/2019 systilic [facility], [facility] Hypothyroi Problem Resolve 2019-03-06 Memoria dism d 22:08:11 l (disorder) [place] Hypothyroi dism (disorder) Resolved Problem 03/06/2019 [facility], [facility] Morbid Problem Resolve 2019-03-06 Kalia aida obesity d 22:08:11 l (disorder) Morbid [facility] obesity (disorder) Resolved Problem 03/06/2019 [facility] Obstructiv Problem Resolve 2019-03-06 Memoria e sleep d 22:08:11 l apnea Jorge Alberto syndrome Obstructiv (disorder) e sleep apnea syndrome (disorder) Resolved Problem 03/06/2019 [facility] Altered Problem Active 2018-12-01 Kalia aida mental 21:28:18 l status Altered Jorge Alberto (finding) mental status (finding) Active Problem 12/01/2018 [facility] Craniotomy Problem Active 2018-12-01 M emoria (procedure 21:28:18 l ) Jorge Alberto Craniotomy (procedure ) Active Problem 12/01/2018 [facility] Hypertensi Problem Active 2019-03-06 M emoria ve 22:08:11 l disorder, Jorge Alberto systemic Hypertensi arterial ve (disorder) disorder, systemic arterial (disorder) Active Problem 03/06/2019 [facility] Itching Problem Active 2018-12-01 Kalia aida (finding) 21:28:18 l Itching Jorge Alberto (finding) Active Problem 12/01/2018 [facility] Intracrani Problem Active 2018-12-01 M emoria al 21:28:18 l meningioma [place] n (disorder) Intracrani al meningioma (disorder) Active Problem 12/01/2018 [facility] Pain Problem Active 2018-12-01 Memor ia (finding) 21:28:18 l Pain [place] (finding) Active Problem 12/01/2018 [facility] Visual Problem Active 2018-12-01 Memor ia disturbanc 21:28:18 l e Visual Jorge Alberto (disorder) disturbanc e (disorder) Active Problem 12/01/2018 [facility] Myasthenic Problem Active 2019-03-06 M emoria crisis 22:08:11 l (disorder) [place] Myasthenic crisis (disorder) Active Problem 03/06/2019 [facility] Diabetes Problem Active 2019-03-06 Mem oria mellitus 22:08:11 l type 2 Diabetes [place] (disorder) mellitus type 2 (disorder) Active Problem 03/06/2019 [facility] Body mass Problem Active 2019-03-06 Me moria index 40+ 22:08:11 l - severely Body [place] obese mass index (finding) 40+ - severely obese (finding) Active Problem 03/06/2019 [facility] Myasthenia Problem Active 2019-03-06 M emoria gravis 22:08:11 l (disorder) [place] Myasthenia gravis (disorder) Active Problem 03/06/2019 [facility] Recurrent Problem Active 2019-03-06 Me moria falls 22:08:11 l (finding) [place] Recurrent falls (finding) Active Problem 03/06/2019 [facility] Type II Problem Active 2019-03-06 Kalia aida diabetes 22:08:11 l mellitus Type II Gerda nn uncontroll diabetes ed mellitus (finding) uncontroll ed (finding) Active Problem 03/06/2019 [facility] Altered Problem Active 2011-03-27 Kalia aida mental 08:54:23 l status Altered Jorge Alberto mental status Active Problem 03/27/2011 [facility] Craniotomy Problem Active 2011-03-27 M emoria 08:54:23 l [place] Craniotomy Active Problem 03/27/2011 [facility] HTN - Problem Active 2011-03-27 Memor ia Hypertensi 08:54:23 l on HTN - [place] Hypertensi on Active Problem 1 [facility] Meningioma Problem Active 2011-03-27 M emoria of brain 08:54:23 l Jorge Alberto Meningioma of brain Active Problem 03/27/2011 [facility] Visual Problem Active 2011-03-27 Memor ia disturbanc 08:54:23 l e Visual Jorge Alberto disturbanc e Active Problem 03/27/2011 [facility] Itching Problem Active 2011-03-27 Kalia aida 08:54:23 l Itching Jorge Alberto Active Problem 03/27/2011 [facility] Pain Problem Active 2011-03-27 Memor ia 08:54:23 l Pain [place] Active Problem 03/27/2011 [facility] BRAIN Diagnosis Active 2011-02-20 Mem oria NEOPLASM 14:11:00 l NOS BRAIN Jorge Alberto NEOPLASM NOS Active Rehabilita tion ADMINISTRT Diagnosis Active 2011-02-04 Memoria VE ENCOUNT 11:31:00 l NOS Jorge Alberto ADMINISTRT VE ENCOUNT NOS Active [facility] COMMUNICAT Diagnosis Active 2011-03-05 Memoria HYDROCEPHA 21:52:00 l TANJA Jorge Alberto COMMUNICAT HYDROCEPHA TANJA Active [facility] SUBDURAL Diagnosis Active 2011-03-20 M emoria HEMORRHAGE 21:57:00 l SUBDURAL [place] HEMORRHAGE Active Rehabilita tion DEHYDRATIO Diagnosis Active 2011-03-27 Memoria N 13:56:00 l [place] DEHYDRATIO N Active [facility] MYASTHENIA Diagnosis Active 2018-09-30 Memoria GRAVIS 22:26:00 l WITHOUT [place] (ACUTE) MYASTHENIA EXACER GRAVIS WITHOUT (ACUTE) EXACER Active [facility] ILLNESS, Diagnosis Active 2018-09-08 M emoria UNSPECIFIE 11:41:00 l D ILLNESS, [place] UNSPECIFIE D Active [facility] OCULAR Diagnosis Active 2018-09-22 Mem oria PAIN, 15:15:00 l RIGHT EYE OCULAR Gerda nn PAIN, RIGHT EYE Active [facility] UNQUALIFIE Diagnosis Active 2018-09-22 Memoria D VISUAL 15:15:00 l LOSS, LEFT [place] n EYE, ALEXIA UNQUALIFIE D VISUAL LOSS, LEFT EYE, ALEXIA Active [facility] Allergies, Adverse Reactions, Alerts Allergy Allergy Status Severity Reaction(s) Onset Inactive Treating Comm ents Source Name Type Date Date Clinician Penicill Drug Active Swelling [facility] Allergy 02-13 - 00:00: Medical 00 [place] Salicyla Drug Active Rash [facility] ramakrishna Allergy 02-10 - 00:00: Medical 00 [place] Ciproflo Drug Active Anaphylaxis [facility] xacin Allergy 02-10 Lu - 00:00: Medical 00 [place] Erythrom Drug Active Other (See Stomach [facility] ycin Intolera Comments) 02-10 cramping Rosio es - nce 00:00: Medical 00 [place] Levoflox Drug Active Anaphylaxis [facility] acin Allergy 02-10 Lu - 00:00: Medical 00 Center penicill penicill Active 2010-06 Memori a ins<sup> ins<sup> 1-14 l 1</sup> 1</sup> 06:00: Jorge Alberto erythrom erythrom Active 2010-06 Memori a ycin<sup ycin<sup 1-14 l >2</sup> >2</sup> 06:00: Berto gomez aspirin< aspirin< Active 2010-06 Memori a sup>3</s sup>3</s 1-14 l up> up> 06:00: Jorge Alberto Adhesive Adhesive Active 2010-06 Memori a Tape<sup Tape<sup 1-14 l >4</sup> >4</sup> 06:00: Berto Freitas Aspirin Allergy Active Univers TABS to drug ity of (finding [place] ) Physici ans Cefepime Allergy Active Univers HCl SOLN to drug ity of (finding [place] ) Physici ans Erythrom Allergy Active Univers ycin to drug ity of [place] (finding [place] ves ) Physici ans Penicill Allergy Active Univers ins to drug ity of (finding [place] ) Physici ans PHENobar Allergy Active Univers bital to drug ity of TABS (finding [place] ) Physici ans Cortizon Allergy Active Univers e-10 to drug ity of (finding [place] ) Physici ans ciproflo ciproflo Active Memori a xacin xacin l [place] heparin heparin Active Severe Memoria l [place] phenobar phenobar Active Memori a bital bital l [place] cefepime cefepime Active Memori a l [place] Cortizon Cortizon Active Memori a e-10 e-10 l Jorge Alberto aspirin aspirin Active Memoria l Jorge Alberto erythrom erythrom Active Memori a ycin ycin l [place] penicill penicill Active Memori a ins ins l Jorge Alberto Silk Silk Active Memoria Tape Tape l Jorge Alberto Social History Social Habit Start Date Stop Date Quantity Comments Source Sex Assigned At [facility] Social History 2018-08-17 2018-08-17 Jan clark 08:45:08 08:45:08 Smoking Status Start Date Stop Date Source Never smoker [facility] Medications Ordered Filled Start Stop Current Ordering Indication Dosage Frequency Signature Comments Components Source Medication Medication Date Date Medication? Clinician (SIG) Name Name heparin 2018-06 Yes Notes: Memoria flush 0-04 (Same as: l 23:00: Heparin Jorge Alberto Lock Flush) heparin 2018-06 No 100 unit, Memor ia 0-04 Route: l 22:24: IVP, ONCE, Jorge Alberto 00 Dosing Weight 100, kg, Start date: 03/04/19 17:24:00 CDT, Stop date: 03/04/19 17:24:00 CDT rosuvastati 2018-06 Yes 20 mg = 2 M emoria n 10 mg 0-04 tab, PO, l oral tablet 21:12: Bedtime, # Jorge Alberto 17 180 tab, 3 Refill(s) amLODIPine 2018-06 Yes 10 mg, PO, M emoria 10 mg oral 0-04 Daily, # l tablet 21:09: 30 tab, 0 B[place] n 00 Refill(s) Ergocalcife 2018-06 Yes 50,000 Kalia aida rol 11492 0-04 IntlUnit = l UNT Oral 21:09: 1 cap, PO, Her restrepo Capsule 00 Q7D, # 5 cap, 0 Refill(s) Famotidine 2018-06 Yes 20 mg = 1 Me moria 20 MG Oral 0-04 tab, PO, l Tablet 21:09: Daily, # Jorge Alberto 00 30 tab, 0 Refill(s) Furosemide 2018-06 Yes 20 mg = 1 Me moria 20 MG Oral 0-04 tab, PO, l Tablet 21:09: Daily, # Jorge Alberto [Lasix] 00 30 tab, 0 Refill(s) Insulin 2018-06 Yes 15 unit, Memori a Glargine 0-04 SUB-Q, l 100 UNT/ML 21:09: Daily, # Her restrepo Injectable 00 15 mL, 0 Solution Refill(s) [Lantus] linezolid 2018-06 Yes 600 mg = 1 Me moria 600 mg oral 0-04 tab, PO, l tablet 21:09: [id number], X Gerda nn 00 7 day, # 14 tab, 0 Refill(s) meclizine 2018-06 Yes 12.5 mg = Mem oria 12.5 mg 0-04 1 tab, PO, l oral tablet 21:09: TID, PRN rmann 00 Dizziness, X 7 day, # 100 tab, 0 Refill(s) melatonin 3 2018-06 Yes 6 mg = 2 Me moria mg oral 0-04 tab, PO, l tablet 21:09: Bedtime, Jorge Alberto 00 PRN Sleep, X 30 day, # 120 tab, 0 Refill(s) Metronidazo 2018-06 Yes 500 mg = 1 Memoria le 500 MG 0-04 tab, PO, l Oral Tablet 21:09: [id number], X H ermann 00 7 day, # 21 tab, 0 Refill(s) predniSONE 2018-06 Yes 25 mg = 5 Me moria 5 mg oral 0-04 tab, PO, l tablet 21:09: Daily, # [place] 00 150 tab, 0 Refill(s) pyridostigm 2018-06 Yes 60 mg = 1 M emoria ine 60 mg 0-04 tab, PO, l oral tablet 21:09: TID, # 90 H ermann 00 tab, 0 Refill(s) QUEtiapine 2018-06 Yes 25 mg = 1 Me moria 25 mg oral 0-04 tab, PO, l tablet 21:09: Bedtime, # Gerda nn 00 30 tab, 0 Refill(s) Sulfamethox 2018-06 Yes 2 tab, PO, Memoria azole 800 0-04 [id number], X l MG / 21:09: 7 day, # Jorge Alberto Trimethopri 00 28 tab, 0 m 160 MG Refill(s) Oral Tablet [Bactrim] Acetaminoph 2018-06 Yes 650 mg = 2 Memoria en 325 MG 0-04 tab, PO, l Oral Tablet 21:09: Q6H, PRN He rmann 00 Pain Score 4-6, X 14 day, # 50 tab, 0 Refill(s) Insulin 2018-06 No 15 unit, Memori a Glargine 0-04 SUB-Q, l 100 UNT/ML 18:44: Daily, 0 Her restrepo Injectable 00 Refill(s) Solution [Lantus] linezolid 2018-06 No 600 mg = 1 Me moria 600 mg oral 0-04 tab, PO, l tablet 18:44: [id number], 0 Gerda nn 00 Refill(s) meclizine 2018-06 No 12.5 mg = Mem oria 12.5 mg 0-04 1 tab, PO, l oral tablet 18:44: TID, PRN He rm 00 Dizziness, 0 Refill(s) melatonin 3 2018-06 No 6 mg = 2 Me moria mg oral 0-04 tab, PO, l tablet 18:44: Bedtime, [place] 00 PRN Sleep, 0 Refill(s) Metronidazo 2018-06 No 500 mg = 1 Memoria le 500 MG 0-04 tab, PO, l Oral Tablet 18:44: [id number], 0 H ermann 00 Refill(s) QUEtiapine 2018-06 No 25 mg = 1 Me moria 25 mg oral 0-04 tab, PO, l tablet 18:44: Bedtime, 0 Gerda nn 00 Refill(s) Sulfamethox 2018-06 No 2 tab, PO, Memoria azole 800 0-04 [id number], 0 l MG / 18:44: Refill(s) [place] Trimethopri 00 m 160 MG Oral Tablet [Bactrim] Acetaminoph 2018-06 No 650 mg = 2 Memoria en 325 MG 0-04 tab, PO, l Oral Tablet 18:44: Q6H, PRN He rmann 00 Pain Score 7-10, 0 Refill(s) Ergocalcife 2018-06 No 50,000 Kalia aida rol [id number] 0-04 IntlUnit = l UNT Oral 18:44: 1 cap, PO, Her restrepo Capsule 00 Q7D, 0 Refill(s) Famotidine 2018-06 No 20 mg = 1 Me moria 20 MG Oral 0-04 tab, PO, l Tablet 18:44: Daily, 0 [place] 00 Refill(s) Hydroxyzine 2018-06 No 25 mg = 1 M emoria Hydrochlori 0-04 cap, PO, l de 25 MG 18:44: QID, PRN Gerda nn Oral 00 Anxiety, 0 Capsule Refill(s) predniSONE 2018-06 No 25 mg = 5 Me moria 5 mg oral 0-04 tab, PO, l tablet 18:44: Daily, 0 [place] 00 Refill(s) Flagyl 2018-06 No 500 mg, 1 Memori a 0-04 tab, l 14:00: Route: PO, Jorge Alberto Drug form: TAB, [id number], Dosing Weight 100, kg, Start date: 03/04/19 9:00:00 CDT, Duration: 14 day, Stop date: 03/18/19 1:00:00 CDT, ABX Indication : Skin/Soft Tissue Infection, 0 Furosemide 2018-06 No Notes: Memor ia 40 MG Oral 0-03 (Same as: l Tablet 14:00: Lasix) Jorge Alberto [Lasix] 00 May cause GI upset. Give with food or milk. Meclizine 2018-06 No Notes: Memori a 0-02 (Same as: l 21:55: Antivert) pyridostigm 2018-06 No 60 mg = 1 M emoria ine 60 mg 0-02 tab, PO, l oral tablet 18:30: TID, # 180 [place] 00 tab, 0 Refill(s) Hydroxyzine No Notes: Kalia aida 02-28 (Same as: l 22:29: Vistaril) Insulin No 15 unit, Memori a Glargine 02-28 0.15 mL, l 100 UNT/ML 14:00: Route: Gerda nn Injectable 00 SUB-Q, Solution Drug form: [Lantus] SOLN, Daily, Dosing Weight 90.909, kg, Start date: 02/28/19 9:00:00 CDT, Duration: 30 day, Stop date: 03/29/19 9:00:00 CDT, 0 Insulin No Notes: Memoria Lispro 02-28 (Same as: l 12:30: Humalog) Roll in palms of hands gently; Do not shake vigorously . WASTE: F/P - Black; E - Municipal Trash Bin Stable for 28 days at room temperatur e. Expires in days from ____Date Seroquel No Notes: Memoria 02-27 (Same as: l 02:00: SEROquel) linezolid No 600 mg, 1 Mem oria 02-26 tab, l 22:00: Route: PO, Jorge Alberto 00 Drug form: TAB, [id number], Dosing Weight 90.909, kg, Start date: 02/26/19 17:00:00 CDT, Duration: 10 day, Stop date: 03/08/19 8:00:00 CDT, ABX Indication : Skin/Soft Tissue Infection, 0 Sulfamethox 0 No 2 tab, Kalia aida azole 800 02-26 Route: PO, l MG / 22:00: Drug Form: [place] Trimethopri 00 TAB, m 160 MG Dosing Oral Tablet Weight [Bactrim] 90.909, kg, [id number], Start date: 02/26/19 17:00:00 CDT, Duration: 10 day, Stop date: 03/08/19 5:00:00 CDT, 0 Lactated No Route: IV, Mem oria Ringers 02-26 Total l Injection 18:00: Volume: Gerda nn IV (ANES) 00 1,000, 1000 mL Start date: 02/26/19 13:00:00 CDT, Stop date: 02/26/19 14:00:00 CDT lidocaine No Route: IV, Me moria (ANES) 02-26 Drug form: l 17:48: INJ, ONCE, Stop date: 02/26/19 12:48:00 CDT propofol 2018-0 No Route: IV, Mem oria (ANES) 02-26 Drug form: l 17:48: INJ, ONCE, Jorge Alberto 00 Stop date: 02/26/19 12:48:00 CDT fentaNYL 2018-0 No Route: IV, Mem oria (ANES) 02-26 Drug form: l 17:48: INJ, ONCE, Stop date: 02/26/19 12:48:00 CDT phenylephri No Route: IV, Memoria ne (ANES) 02-26 Drug form: l 17:48: INJ, ONCE, Stop date: 02/26/19 12:48:00 CDT ePHEDrine 0 No Route: IV, Me moria (ANES) 02-26 Drug form: l 17:48: INJ, ONCE, Stop date: 02/26/19 12:48:00 CDT Hydralazine 0 No 10 mg, Kalia aida 02-26 Route: l 17:36: IVP, [place] 00 Q20Min, Dosing Weight 90.909, kg, PRN Elevated BP, Start date: 02/26/19 12:36:00 CDT, Duration: 2 doses or times, Stop date: Limited # of times Labetalol 2019-0 No 10 mg, Memori a 02-26 Route: l 17:36: IVP, Jorge Alberto 00 Q5Min, Dosing Weight 90.909, kg, PRN Elevated BP, Start date: 02/26/19 12:36:00 CDT, Duration: 5 doses or times, Stop date: Limited # of times Oxycodone 2019-0 No 5 mg, Memoria Hydrochlori 02-26 Route: PO, l de 5 MG 17:36: Drug form: Herm mercy Oral Tablet 00 TAB, Q4H, Dosing Weight 90.909, kg, PRN Pain Score 4-6, Start date: 02/26/19 12:36:00 CDT, Duration: 30 day, Stop date: 03/28/19 12:35:00 CDT Flumazenil 2019-0 No 0.2 mg, Kalia aida 02-26 Route: l 17:36: IVP, PRN, [place] Dosing Weight 90.909, kg, PRN Benzodiaze pine Reversal, Initial dose, Start date: 02/26/19 12:36:00 CDT, Duration: 30 day, Stop date: 03/28/19 12:35:00 CDT Naloxone 2019-0 No 0.4 mg, Memori a 02-26 Route: l 17:36: IVP, [place] 00 Q2MIN, Dosing Weight 90.909, kg, PRN Narcotic Reversal, Start date: 02/26/19 12:36:00 CDT, Duration: 8 doses or times, Stop date: Limited # of times Ondansetron 2019-0 No 4 mg, Memor ia 02-26 Route: l 17:36: IVP, ONCE, [place] Dosing Weight 90.909, kg, PRN Nausea & Vomiting, Start date: 02/26/19 12:36:00 CDT insulin, 2019-0 No Notes: Memoria isophane 02-23 (Same as: l 14:00: Humulin N) Jorge Alberto Roll in palms of hands gently; Do not shake vigorously . WASTE: F/P - Black; E - Municipal Trash Bin Stable for 31 days at room temperatur e Expires in days from ____Date Labetalol 2019-0 No 10 mg, Memori a 02-23 Route: l 04:53: IVP, [place] 00 Q5Min, Dosing Weight 90.909, kg, PRN Elevated BP, Start date: 02/22/19 23:53:00 CDT, Duration: 5 doses or times, Stop date: Limited # of times Acetaminoph 2019-0 No 1,000 mg, M emoria en 02-23 Route: PO, l 04:53: Drug form: [place] 00 TAB, ONCE, Dosing Weight 90.909, kg, PRN Pain Score 1-3, Start date: 02/22/19 23:53:00 CDT Oxycodone 2019-0 No 5 mg, Memoria Hydrochlori 02-23 Route: PO, l de 5 MG 04:53: Drug form: Herm mercy Oral Tablet 00 TAB, Q4H, Dosing Weight 90.909, kg, PRN Pain Score 4-6, Start date: 02/22/19 23:53:00 CDT, Duration: 30 day, Stop date: 03/24/19 23:52:00 CDT Flumazenil 2019-0 No 0.2 mg, Kalia aida 02-23 Route: l 04:53: IVP, PRN, Jorge Alberto 00 Dosing Weight 90.909, kg, PRN Benzodiaze pine Reversal, Initial dose, Start date: 02/22/19 23:53:00 CDT, Duration: 30 day, Stop date: 03/24/19 23:52:00 CDT Naloxone 2019-0 No 0.4 mg, Memori a 02-23 Route: l 04:53: IVP, Jorge Alberto 00 Q2MIN, Dosing Weight 90.909, kg, PRN Narcotic Reversal, Start date: 02/22/19 23:53:00 CDT, Duration: 8 doses or times, Stop date: Limited # of times Ondansetron 2019-0 No 4 mg, Memor ia 02-23 Route: l 04:53: IVP, ONCE, [place] 00 Dosing Weight 90.909, kg, PRN Nausea & Vomiting, Start date: 02/22/19 23:53:00 CDT Insulin 2018-0 No 2 unit, Memoria regular 02-23 Route: l 04:53: SUB-Q, [place] Sliding Scale, Dosing Weight 90.909, kg, PRN Blood Glucose Results, Start date: 02/22/19 23:53:00 CDT, Duration: 30 day, Stop date: 03/24/19 23:52:00 CDT ertapenem No Notes: Me moria 02-23 MEDICATION l 02:00: WASTE Product Size: 1000 mg Product Wasted: ___ mg insulin, No Notes: Memoria isophane 02-22 (Same as: l 21:34: Humulin N) Roll in palms of hands gently; Do not shake vigorously . WASTE: F/P - Black; E - Municipal Trash Bin Stable for 31 days at room temperatur e Expires in days from ____Date Prednisone No Notes: Memor ia 02-22 Take with l 14:00: food. [place] 00 Saline 0 No 10 mL, Memoria Flush 0.9% 02-21 Route: l 21:00: IVP, Drug Form: INJ, Dosing Weight 90.909, kg, Q8H, Start date: 02/21/19 16:00:00 CDT, Duration: 30 day, Stop date: 03/23/19 8:00:00 CDT Lidocaine 2018-0 No 5 mL, Memoria Hydrochlori 02-21 Route: l de 10 MG/ML 20:00: INTRADERM, Jorge Alberto Injectable Dosing Solution Weight 90.909, kg, ONCALL, For PICC line insertion. , Start date: 02/21/19 15:00:00 CDT, Duration: 30 day, Stop date: 03/23/19 14:59:00 CDT Saline 2018-0 No 10 mL, Memoria Flush 0.9% 02-21 Route: l 19:42: IVP, Drug Form: INJ, Dosing Weight 90.909, kg, PRN, PRN Line Flush, Start date: 02/21/19 14:42:00 CDT, Duration: 30 day, Stop date: 03/23/19 14:41:00 CDT Lidocaine 2018- No 5 mL, Memoria Hydrochlori 02-21 Route: l de 10 MG/ML 19:00: INTRADERM, Jorge Alberto Injectable Dosing Solution Weight 90.909, kg, ONCALL, For PICC line insertion. , Start date: 02/21/19 14:00:00 CDT, Duration: 30 day, Stop date: 03/23/19 13:59:00 CDT Saline No 10 mL, Memoria Flush 0.9% - Route: l 18:20: IVP, Drug Jorge Alberto Form: INJ, Dosing Weight 90.909, kg, PRN, PRN Line Flush, Start date: 02/21/19 13:20:00 CDT, Duration: 30 day, Stop date: 03/23/19 13:19:00 CDT Lidocaine No 2 spray, Kalia aida Hydrochlori 02-21 Route: l de 20 MG/ML 18:20: TOP, ONCE, [place] Topical 00 Start [place] date: 02/21/19 13:20:00 CDT, Stop date: 02/21/19 13:20:00 CDT Lidocaine No Notes: Memori a Hydrochlori - (Same as: l de 10 MG/ML 17:00: Xylocaine) [place] Injectable 00 Solution Saline No 10 mL, Memoria Flush 0.9% 9- Route: l 16:54: IVP, Drug Jorge Alberto 00 Form: INJ, Dosing Weight 90.909, kg, PRN, PRN Line Flush, Start date: 02/21/19 11:54:00 CDT, Duration: 30 day, Stop date: 03/23/19 11:53:00 CDT Saline No Notes: Memoria Flush 0.9% 9-23 (Same as: l 05:00: BD Jorge Alberto 00 Posiflush) Lidocaine No Notes: Memori a Hydrochlori 9-22 Preservati l de 10 MG/ML 22:00: ve free. He rmann Injectable 00 (Same as: Solution Xylocaine MPF) Saline No Notes: Memoria Flush 0.9% 9-22 (Same as: l 21:25: BD [place] Posiflush) insulin, No Notes: Memoria isophane 02-20 (Same as: l 12:25: Humulin N) Roll in palms of hands gently; Do not shake vigorously . WASTE: F/P - Black; E - Municipal Trash Bin Stable for 31 days at room temperatur e Expires in days from ____Date Melatonin No Notes: Memori a 02-20 (Same as: l 08:41: Melatonin) Jorge Alberto 00 Zyprexa No Notes: Memoria 02-20 (Same As: l 04:51: ZyPREXA [place] 00 IM). insulin, No Notes: Memoria isophane 02-19 (Same as: l 23:20: Humulin N) Roll in palms of hands gently; Do not shake vigorously . WASTE: F/P - Black; E - Municipal Trash Bin Stable for 31 days at room temperatur e Expires in days from ____Date insulin, No Notes: Memoria isophane 02-19 (Same as: l 17:42: Humulin N) Roll in palms of hands gently; Do not shake vigorously . WASTE: F/P - Black; E - Municipal Trash Bin Stable for 31 days at room temperatur e Expires in days from ____Date Iohexol No 100 mL, Memoria 02-19 Route: l 14:17: IVP, Drug Form: SOLN, Dosing Weight 90.909, kg, ONCALL, STAT, Start date: 02/19/19 9:17:00 CDT, Duration: 1 doses or times, Dose = 2.2ml/kg, Max dose = 100ml -- "To be infused by Radiology Staff ONLY" insulin No Notes: Feli detemir 02-18 Non-Formul l 22:36: jordi Drug (Same as Levemir) "Single Patient Use Only" Do not hold insulin without contacting prescriber WASTE: F/P - Black; E - Municipal Trash Bin Stable for 42 days at room temperatur e Expires in days from ____Date insulin No Notes: Memoria detemir 02-18 Non-Formul l 14:00: jordi Drug (Same as Levemir) "Single Patient Use Only" Do not hold insulin without contacting prescriber WASTE: F/P - Black; E - Municipal Trash Bin Stable for 42 days at room temperatur e Expires in days from ____Date Potassium No Notes: Memori a Chloride 02-18 (Same as: l 12:27: K-Dur ) "Do Not Crush" Give with food and full glass of water For patients unable to swallow tablet, dissolve in one half glass of water. Allow about 2 minutes for the tablets to disintegra te. Stir before giving to prepare slurry and administer . Please exclude Patient s with feeding tube less than 14 Micronesian (Dobhoff, J-tube etc) and pediatric and patients. PlasmaLyte No Notes: Memor ia A PH-7.4 02-18 (Same as: l 1,000 mL 12:26: Isolyte S mercy PH 7.4) insulin No Notes: Memoria detemir 02-18 Non-Formul l 02:00: jordi Drug (Same as Levemir) "Single Patient Use Only" Do not hold insulin without contacting prescriber WASTE: F/P - Black; E - Municipal Trash Bin Stable for 42 days at room temperatur e Expires in days from ____Date Seroquel No Notes: Memoria 02-18 (Same as: l 02:00: SEROquel) insulin No Notes: Memoria detemir 02-17 Non-Formul l 22:00: jordi Drug (Same as Levemir) "Single Patient Use Only" Do not hold insulin without contacting prescriber WASTE: F/P - Black; E - Municipal Trash Bin Stable for 42 days at room temperatur e Expires in days from ____Date Iohexol No Notes: Memoria 02-17 (same l 14:52: as:Omnipaq ue 350). WASTE: F/P - Black; E - Municipal Trash Bin insulin No Notes: Memoria detemir 02-17 Non-Formul l 14:38: ojrdi Drug (Same as Levemir) "Single Patient Use Only" Do not hold insulin without contacting prescriber WASTE: F/P - Black; E - Municipal Trash Bin Stable for 42 days at room temperatur e Expires in days from ____Date vancomycin No 2000 mg: Me moria + Sodium 02-17 infuse l Chloride 03:00: over 2.5 Gerda nn 0.9% IV 250 00 hours For mL adult patients only: Round to nearest 250 mg per Medical Staff approval MEDICATION WASTE Product Size: 1000 mg Product Wasted: ___ mg ertapenem No Notes: Me moria - MEDICATION l 22:00: WASTE Product Size: 1000 mg Product Wasted: ___ mg vancomycin No 2000 mg: Me moria + Sodium 9-18 infuse l Chloride 14:30: over 2.5 Gerda nn 0.9% IV 500 00 hours For mL adult patients only: Round to nearest 250 mg per Medical Staff approval MEDICATION WASTE Product Size: 1000 mg Product Wasted: ___ mg Famotidine No Notes: Memor ia 02-16 (Same as: l 14:00: Pepcid) vancomycin No 2000 mg: Me moria + Sodium 9-18 infuse l Chloride 14:00: over 2.5 Gerda nn 0.9% IV 500 00 hours For mL adult patients only: Round to nearest 250 mg per Medical Staff approval MEDICATION WASTE Product Size: 1000 mg Product Wasted: ___ mg Vancomycin 0 No 1,000 mg, Me moria 9-18 Route: l 13:00: IVPB, Drug [place] 00 form: INJ, ABXQ8H, Dosing Weight 90.909, kg, Start date: 02/16/19 8:00:00 CDT, Duration: 7 day, Stop date: 02/23/19 0:00:00 CDT, ABX Indication : Skin/Soft Tissue Infection Humalog No Notes: Memoria 02-14 (Same as: l 16:30: Humalog) [place] Roll in palms of hands gently; Do not shake vigorously . WASTE: F/P - Black; E - Municipal Trash Bin Stable for 28 days at room temperatur e. Expires in days from ____Date Levemir No Notes: Memoria 02-14 Non-Formul l 14:00: jordi Drug [place] 00 (Same as Levemir) "Single Patient Use Only" Do not hold insulin without contacting prescriber WASTE: F/P - Black; E - Municipal Trash Bin Stable for 42 days at room temperatur e Expires in days from ____Date Humalog No Notes: Memoria 02-14 (Same as: l 12:30: Humalog) Jorge Alberto 00 Roll in palms of hands gently; Do not shake vigorously . WASTE: F/P - Black; E - Municipal Trash Bin Stable for 28 days at room temperatur e. Expires in days from ____Date Hydralazine No Notes: Kalia aida Hydrochlori 02-14 (Same as: l de 25 MG 07:39: Apresoline Her restrepo Oral Tablet 00 ) May interfere w/enteral feedings Take With Food. Merrem No Notes: Memoria 02-14 Same as l 07:00: Merrem [place] 00 MEDICATION WASTE Product Size: 500 mg Product Wasted: ___ mg Insulin No Notes: Memoria Lispro 02-14 (Same as: l 02:57: Humalog) Jorge Alberto 00 Roll in palms of hands gently; Do not shake vigorously . WASTE: F/P - Black; E - Municipal Trash Bin Stable for 28 days at room temperatur e. Expires in days from ____Date Dextrose 2019-0 No 12.5 gm, Memor ia 50% Syringe 02-14 25 mL, l 01:33: Route: [place] 00 IVP, Drug Form: INJ, Dosing Weight 90.909, kg, PRN, PRN Blood Glucose Results, Start date: 02/13/19 20:33:00 CDT, Duration: 30 day, Stop date: 03/15/19 20:32:00 CDT, 0 Glucagon 2019-0 No 1 mg, Memoria 9- Route: IM, l 01:33: Drug form: Jorge Alberto 00 PDR/INJ, PRN, Dosing Weight 90.909, kg, PRN Blood Glucose Results, Start date: 02/13/19 20:33:00 CDT, Duration: 30 day, Stop date: 03/15/19 20:32:00 CDT, 0 Insulin 2019-0 No Notes: Memoria Lispro 16 (Same as: l 01:33: Humalog) Jorge Alberto 00 Roll in palms of hands gently; Do not shake vigorously . WASTE: F/P - Black; E - Municipal Trash Bin Stable for 28 days at room temperatur e. Expires in days from ____Date Dextrose 2019-0 No 25 mL, Memoria 50% Syringe -16 Route: l 01:32: IVP, [place] 00 Dosing Weight 90.909, kg, PRN, PRN Blood Glucose Results, Start date: 02/13/19 20:32:00 CDT, Duration: 30 day, Stop date: 03/15/19 20:31:00 CDT Glucagon 2019-0 No 1 mg, Memoria 9-16 Route: IM, l 01:32: PRN, [place] 00 Dosing Weight 90.909, kg, PRN Blood Glucose Results, Start date: 02/13/19 20:32:00 CDT, Duration: 30 day, Stop date: 03/15/19 20:31:00 CDT Insulin 2019-0 No 2 unit, Soyoria regular 16 Route: l 01:32: SUB-Q, [place] 00 TID-Before Meals, Dosing Weight 90.909, kg, PRN Blood Glucose Results, Start date: 02/13/19 20:32:00 CDT, Duration: 30 day, Stop date: 03/15/19 20:31:00 CDT Morphine No Notes: Memoria 9-15 (Same l 22:52: as:MORPhin Jorge Alberto 00 e Sulfate) Insulin No Notes: Memoria Lispro -15 (Same as: l 04:38: Humalog) Jorge Alberto 00 Roll in palms of hands gently; Do not shake vigorously . WASTE: F/P - Black; E - Municipal Trash Bin Stable for 28 days at room temperatur e. Expires in days from ____Date Saline No Notes: Memoria Flush 0.9% 9-14 (Same as: l 21:00: BD Jorge Alberto 00 Posiflush) Ativan No Notes: Memoria 9-14 (Same as: l 17:02: Ativan) [place] 00 Lidocaine No 5 mL, Memoria Hydrochlori 02-12 Route: l de 10 MG/ML 17:00: INTRADERM, Jorge Alberto Injectable 00 Dosing Solution Weight 90.909, kg, ONCALL, For PICC line insertion. , Start date: 02/12/19 12:00:00 CDT, Duration: 30 day, Stop date: 03/14/19 11:59:00 CDT Saline No Notes: Memoria Flush 0.9% 9-14 (Same as: l 16:23: BD [place] 00 Posiflush) Morphine No Notes: Memoria 9-14 (Same l 16:12: as:MORPhin [place] 00 e Sulfate) Isolyte S No Notes: Memori a PH 7.4 9-14 (Same as: l 06:30: Isolyte S [place] 00 PH 7.4) Isolyte S No Notes: Memori a PH-7.4 9-14 (Same as: l (Bolus) IV 03:53: Isolyte S He r[place] 00 PH7.4) Ativan No Notes: Memoria 9-13 (Same as: l 22:10: Ativan) Ativan No 1 mg, Memoria 9-13 Route: IV, l 22:08: ONCE, Dosing Weight 90.909, kg, Start date: 02/11/19 17:08:00 CDT, Stop date: 02/11/19 17:08:00 CDT Morphine No Notes: Memoria 9-13 (Same l 22:08: as:MORPhin e Sulfate) Sertraline No Notes: Memor ia 9-13 (Same as: l 14:00: Zoloft) Insulin No Notes: Memoria Lispro 9-13 (Same as: l 04:10: Humalog) Roll in palms of hands gently; Do not shake vigorously . WASTE: F/P - Black; E - Municipal Trash Bin Stable for 28 days at room temperatur e. Expires in days from ____Date Insulin No Notes: Memoria Lispro 9-13 (Same as: l 04:00: Humalog) Roll in palms of hands gently; Do not shake vigorously . WASTE: F/P - Black; E - Municipal Trash Bin Stable for 28 days at room temperatur e. Expires in days from ____Date Haloperidol No Notes: Kalia aida 9-13 (Same as: l 03:59: Haldol) Morphine No 1 mg, Memoria 9-12 Route: IV, l 18:32: ONCE, Dosing Weight 90.909, kg, Priority: STAT, Start date: 02/10/19 13:32:00 CDT, Stop date: 02/10/19 13:32:00 CDT vancomycin No 2001 mg: Me moria 9-12 infuse l 17:00: over 2.5 00 hours Levemir No Notes: Memoria 9-11 Non-Formul l 22:00: jordi Drug (Same as Levemir) "Single Patient Use Only" Do not hold insulin without contacting prescriber WASTE: F/P - Black; E - Municipal Trash Bin Stable for 42 days at room temperatur e Expires in days from ____Date NS (Bolus) No 500 mL, Kalia aida IV 02-09 500 ml/hr, l 16:18: Infuse Over: 1 hr, Route: IV, 500, Drug form: INJ, ONCE, Priority: STAT, Dosing Weight 90.909 kg, Start date: 02/09/19 11:18:00 CDT, Stop date: 02/09/19 11:18:00 CDT, 0 Vancomycin No 100 Memoria 9-11 ml/min, l 13:00: Time Jorge Alberto 00 Critical Medication , Start date: 02/09/19 8:00:00 CDT, Duration: 7 day, Stop date: 02/16/19 0:00:00 CDT, ABX Indication : Skin/Soft Tissue Infection Merrem No Notes: Memoria 02-09 Same as l 13:00: Merrem MEDICATION WASTE Product Size: 500 mg Product Wasted: _0__ mg Vancomycin No 2000 mg: Me moria 02-09 infuse l 12:54: over 2.5 Jorge Alberto 00 hours For adult patients only: Round to nearest 250 mg per Medical Staff approval MEDICATION WASTE Product Size: 1000 mg Product Wasted: ___ mg Isolyte S No Notes: Memori a PH-7.4 02-09 (Same as: l (Bolus) IV 12:52: Isolyte S PH 7.4) Clindamycin No Notes: Kalia aida 02-09 (Same As: l 03:00: Cleocin) Levemir No Notes: Memoria 11 Non-Formul l 00:30: jordi Drug (Same as Levemir) "Single Patient Use Only" Do not hold insulin without contacting prescriber WASTE: F/P - Black; E - Municipal Trash Bin Stable for 42 days at room temperatur e Expires in days from ____Date Humalog 0 No Notes: Memoria 9-10 (Same as: l 12:30: Humalog) Jorge Alberto 00 Roll in palms of hands gently; Do not shake vigorously . WASTE: F/P - Black; E - Municipal Trash Bin Stable for 28 days at room temperatur e. Expires in days from ____Date Dextrose 2018-0 No 12.5 gm, Memor ia 50% Syringe 02-08 25 mL, l 06:33: Route: [place] 00 IVP, Drug Form: INJ, Dosing Weight 90.909, kg, PRN, PRN Blood Glucose Results, Start date: 02/08/19 1:33:00 CDT, Duration: 30 day, Stop date: 03/10/19 1:32:00 CDT, 0 Glucagon No 1 mg, Memoria 9-10 Route: IM, l 06:33: Drug form: [place] 00 PDR/INJ, PRN, Dosing Weight 90.909, kg, PRN Blood Glucose Results, Start date: 02/08/19 1:33:00 CDT, Duration: 30 day, Stop date: 03/10/19 1:32:00 CDT, 0 Insulin No Notes: Memoria Lispro -10 (Same as: l 06:33: Humalog) [place] 00 Roll in palms of hands gently; Do not shake vigorously . WASTE: F/P - Black; E - Municipal Trash Bin Stable for 28 days at room temperatur e. Expires in days from ____Date Humalog 0 No Notes: Memoria 9-10 (Same as: l 03:51: Humalog) Jorge Alberto 00 Roll in palms of hands gently; Do not shake vigorously . WASTE: F/P - Black; E - Municipal Trash Bin Stable for 28 days at room temperatur e. Expires in days from ____Date NS (Bolus) 2018-0 No 500 mL, Kalia aida IV 9-10 500 ml/hr, l 03:50: Infuse [place] 00 Over: 1 hr, Route: IV, ONCE, Priority: STAT, Dosing Weight 90.909 kg, Start date: 02/07/19 22:50:00 CDT, Stop date: 02/07/19 22:50:00 CDT normal 0 No 1,000 mL, Memori a saline 0.9% - Rate: 75 l IV 1,000 mL 03:50: ml/hr, Herm mrecy Infuse over: 13.3 hr, Route: IV, Dosing Weight 90.909 kg, Total Volume: 1,000, Start date: 02/07/19 22:50:00 CDT, Duration: 30 day, Stop date: 03/09/19 22:49:00 CDT, 1.99, m2, 0 remove No 1 patch, Memoria patch - Route: l 02:00: TOP, Jorge Alberto Bedtime, Drug form: ERFILM, Start date: 02/07/19 21:00:00 CDT, Duration: 30 day, Stop date: 03/08/19 21:00:00 CDT, 0 Humalog 0 No Notes: Memoria 9-10 (Same as: l 01:20: Humalog) [place] 00 Roll in palms of hands gently; Do not shake vigorously . WASTE: F/P - Black; E - Municipal Trash Bin Stable for 28 days at room temperatur e. Expires in days from ____Date Insulin 2018-0 No Notes: Memoria Lispro 9-10 Roll in l 00:08: palms of Jorge Alberto 00 hands gently; do not shake vigorously . (Same as: Humalog) WASTE: F/P - Black; E - Municipal Trash Bin Stable for 28 days at room temperatur e. Expires in days from Insulin 2019-0 No 10 unit, Memori a regular 02-07 Route: l 22:12: SUB-Q, Jorge Alberto 00 ONCE, Dosing Weight 90.909, kg, Start date: 02/07/19 17:12:00 CDT, Stop date: 02/07/19 17:12:00 CDT Lidocaine 2018-0 No 1 patch, Kalia aida 0.05 MG/MG 02-07 Route: l Transdermal 19:00: TOP, Berto n Patch 00 Daily, Drug form: FILM, Start date: 02/07/19 14:00:00 CDT, Duration: 30 day, Stop date: 03/09/19 9:00:00 CDT, 0 Ergocalcife 0 No 50,000 Kalia aida rol [id number] 02-07 IntlUnit, l UNT Oral 18:16: 1 cap, Jorge Alberto Capsule 00 Route: PO, Drug form: CAP, Q7D, Dosing Weight 90.909, kg, Start date: 02/07/19 13:16:00 CDT, Duration: 30 day, Stop date: 04/04/19 9:00:00 [employer]VE[employer] 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, 0 Ativan 0 No Notes: Memoria 02-07 (Same as: l 17:00: Ativan) Calcium 2018-0 No Notes: Memoria Carbonate 02-06 (calcium l 1250 MG / 22:00: carbonate- He rmann Cholecalcif 00 vit D alpa 400 500mg-400u UNT nit chew Chewable TAB) Same Tablet as: Oscal 500+D heparin 0 No Notes: Memoria 02-06 porcine l 21:00: heparin tramadol 2018-0 No 50 mg, 1 Memor ia hydrochlori 02-06 tab, l de 50 MG 16:20: Route: PO, Her restrepo Oral Tablet 00 Drug form: TAB, Q6H, Dosing Weight 90.909, kg, PRN Pain Score 7-10, Start date: 02/06/19 11:20:00 CDT, Duration: 30 day, Stop date: 03/08/19 11:19:00 CDT, 0 sterile 2019-0 No 2.1 mL, Memoria water 02-06 Route: l 16:17: MISC, Drug Jorge Alberto Form: INJ, BID, PRN, Start date: 02/06/19 11:17:00 CDT, Duration: 30 day, Stop date: 03/08/19 11:16:00 CDT, For Zyprexa reconstitu tion, 0 olanzapine No 10 mg, Memor ia 02-06 Route: IM, l 16:07: Drug form: INJ, BID, Dosing Weight 90.909, kg, PRN Agitation, Start date: 02/06/19 11:07:00 CDT, Duration: 30 day, Stop date: 03/08/19 11:06:00 CDT, 0 Sertraline No Notes: Memor ia 02-06 (Same as: l 14:00: Zoloft) Furosemide No Notes: Memor ia 40 MG Oral 02-06 (Same as: l Tablet 14:00: Lasix) [place] [Lasix] May cause GI upset. Give with food or milk. Amlodipine No Notes: Memor ia 02-06 (Same as: l 14:00: Norvasc) Synthroid No Notes: Memori a 02-06 Take 1 l 11:30: hour before or 2 hours after meal; Enteral feeds may interefere with the absorption of this medication . (Same as:Synthro id) Tylenol No Notes: Do Memor ia 02-06 not exceed l 02:45: 4 gm/day. (Same as: Tylenol) Isolyte S No Notes: Memori a PH 7.4 500 02-06 (Same as: l mL 02:37: Isolyte S PH 7.4) Insulin No 20 unit, Memori a Glargine 02-06 0.2 mL, l 02:02: Route: SUB-Q, Drug form: SOLN, Daily, Dosing Weight 90.909, kg, Priority: NOW, Start date: 02/05/19 21:02:00 CDT, Duration: 30 day, Stop date: 03/07/19 9:00:00 CDT, 0 rosuvastati No Notes: Klaia aida n 02-06 (Same As: l 02:01: Crestor) tramadol No Notes: Not Mem oria hydrochlori 02-05 to exceed l de 50 MG 22:36: 400mg/day. Her restrepo Oral Tablet 00 (Same As: Ultram) Dextrose No 12.5 gm, Memor ia 50% Syringe 02-05 25 mL, l 21:39: Route: IVP, Drug Form: INJ, Dosing Weight 90.909, kg, PRN, PRN Blood Glucose Results, Start date: 02/05/19 16:39:00 CDT, Duration: 30 day, Stop date: 03/07/19 16:38:00 CDT, 0 Glucagon No 1 mg, Memoria 02-05 Route: IM, l 21:39: Drug form: PDR/INJ, PRN, Dosing Weight 90.909, kg, PRN Blood Glucose Results, Start date: 02/05/19 16:39:00 CDT, Duration: 30 day, Stop date: 03/07/19 16:38:00 CDT, 0 Insulin No Notes: Memoria regular 02-05 (Same as: l 21:39: Humulin R) Roll in palms of hands gently; Do not shake vigorously . WASTE: F/P - Black; E - [employer] Trash Bin Stable for 31 days at room temperatur e Expires in days from ____Date Mestinon No Notes: Memoria 02-05 (Same as: l 21:00: Mestinon) Prednisone No 30 mg, 3 Mem oria 02-05 tab, l 19:40: Route: PO, Drug form: TAB, Daily, Dosing Weight 90.909, kg, Priority: NOW, Start date: 02/05/19 14:40:00 CDT, Duration: 30 day, Stop date: 03/07/19 9:00:00 CDT, 0 insulin 2018- Yes 12 unit, Memori a lispro 100 8-12 SUB-Q, l units/mL 19:35: TID-Before Her restrepo injectable 00 Meals, 0 solution Refill(s) Insulin Yes 34 unit, Memori a Glargine 8-12 SUB-Q, l 100 UNT/ML 12:01: Daily, 0 Her restrepo Injectable 00 Refill(s) Solution [Lantus] Furosemide Yes 40 mg = 1 Me moria 40 MG Oral 8-12 tab, PO, l Tablet 12:01: BID [place] [Lasix] 00 Diuretic, 0 Refill(s) Furosemide No Notes: Memor ia 40 MG Oral 8-12 (Same as: l Tablet 11:00: Lasix) Jorge Alberto [Lasix] 00 May cause GI upset. Give with food or milk. Furosemide No Notes: Memor ia 8-10 (Same as: l 11:00: Lasix) [place] MEDICATION WASTE Product Size: 40 mg Product Wasted: ___ mg Sodium No Notes: SEE Memor ia Chloride 3% 01-07 RT l inhalation 01:37: DOCUMENTAT H ermann solution 00 ION (Same as: Hypertonic Saline 3%, Inhalation ) Furosemide No Notes: Memor ia 807 (Same as: l 16:00: Lasix) [place] MEDICATION WASTE Product Size: 40 mg Product Wasted: ___ mg insulin Yes 36 unit, Memori a detemir 100 01-05 SUB-Q, l UNT/ML 14:58: BID, # 15 Berto n Injectable 00 mL, 3 Solution Refill(s), [Levemir] other Lasix No Notes: Memoria 8-06 (Same as: l 16:15: Lasix) Furosemide No Notes: Memor ia 40 MG Oral 805 (Same as: l Tablet 14:00: Lasix) Jorge Alberto [Lasix] May cause GI upset. Give with food or milk. Amlodipine No Notes: Memor ia 8-04 (Same as: l 22:00: Norvasc) Ramipril No Notes: Memoria 8-04 (Same l 13:00: as:Altace) ceFAZolin No Notes: Memori a 8-04 (Same as l 11:00: Ancef) Calcium No Notes: Memoria Gluconate 01-01 WASTE: F/P l 14:30: - Sink; E [place] - Municipal Trash Bin predniSONE No 40 mg = 2 Me moria 20 mg oral 01-01 tab, PO, l tablet 14:29: Daily, X [place] 00 10 day, # 20 tab, 0 Refill(s), other insulin No 12 unit, Memori a lispro 100 8-03 SUB-Q, l units/mL 14:29: TID-Before Her restrepo injectable 00 Meals, # solution 10 mL, 0 Refill(s), other insulin No 36 unit, Memori a detemir 100 8- SUB-Q, l UNT/ML 14:29: BID, # 30 Berto n Injectable 00 mL, 0 Solution Refill(s), [Levemir] other albumin No Notes: Memoria human 5% 01-01 LOT#: l intravenous 14:27: [place] solution 00 ___Mfg:___ ___ (Same as: Albuminar) "blood product derivative " WASTE: F/P - Red; E -Red MEDICATION WASTE Product Size: 25 gm Product Wasted: ___ gm Prednisone No Notes: Memor ia 01-01 Take with l 14:00: food. [place] 00 Insulin No 34 unit, Memori a Glargine 01-01 0.34 mL, l 100 UNT/ML 14:00: Route: Gerda nn Injectable 00 SUB-Q, Solution Drug form: [Lantus] SOLN, Daily, Dosing Weight 92, kg, Start date: 01/01/19 9:00:00 CDT, Duration: 30 day, Stop date: 01/30/19 9:00:00 CDT, 0 Insulin No Notes: Memoria Lispro 12-31 (Same as: l 12:30: Humalog) [place] 00 Roll in palms of hands gently; Do not shake vigorously . WASTE: F/P - Black; E - Municipal Trash Bin Stable for 28 days at room temperatur e. Expires in days from ____Date Insulin No Notes: Memoria Glargine - (Same as: l 100 UNT/ML 02:00: Lantus) Do H ermann Injectable 00 not hold Solution insulin [Lantus] without contacting prescriber WASTE: F/P - Black; E - Municipal Trash Bin "single patient use only" Stable for 28 days at room temperatur e Expires in days from ____Date Calcium No Notes: eFli Gluconate 12-30 WASTE: F/P l 15:00: - Sink; E [place] 00 - Municipal Trash Bin albumin No Notes: Feli human 5% 12-30 LOT#: l intravenous 14:34: [place] solution 00 ___Mfg:___ ___ (Same as: Albuminar) "blood product derivative " WASTE: F/P - Red; E -Red MEDICATION WASTE Product Size: 25 gm Product Wasted: _0__ gm Thyroxine No Notes: Daniel a 12-30 Take 1 l 11:30: hour Jorge Alberto 00 before or 2 hours after meal; Enteral feeds may interefere with the absorption of this medication . (Same as:Synthro id) insulin, No Notes: Feli isophane 12-30 (Same as: l 08:00: Humulin N) Roll in palms of hands gently; Do not shake vigorously . WASTE: F/P - Black; E - [facility] Trash Bin Stable for 31 days at room temperatur e Expires in days from ____Date Benzocaine No 1 appl, Kalia aida 0.1 MG/MG 12-30 Route: l Topical 05:39: TOP, PRN, Gerda nn Ointment 00 Drug form: OINT, PRN Pain Score 1-3, Start date: 12/30/18 0:39:00 CDT, Duration: 30 day, Stop date: 01/29/19 0:38:00 CDT phenol No Notes: Feli 12-30 Chlorasept l 05:37: ic [place] Jorge Alberto (Same as: Chlorasept ic, Sore Throat [place]) WASTE: F/P - Black; E - [facility] Trash Bin insulin, No Notes: Memoria isophane 8-01 (Same as: l 00:00: Humulin N) Roll in palms of hands gently; Do not shake vigorously . WASTE: F/P - Black; E - [facility] Trash [facility] Stable for 31 days at room temperatur e Expires in days from ____Date insulin, No 40 unit, Memor ia isophane 7-31 Route: l 16:00: SUB-Q, Jorge Alberto 00 Q24H, Dosing Weight 92, kg, Start date: 12/29/18 11:00:00 CDT, Duration: 30 day, Stop date: 01/27/19 11:00:00 CDT Ancef No Notes: Memoria 7-31 (Same as l 16:00: Ancef) Sulfamethox No Notes: One Memoria azole 800 7-31 DS tablet l MG / 15:00: = Trimethopri 00 trimethopr m 160 MG im 160mg + Oral Tablet sulfametho [Bactrim] xazole 800 mg Dose based on trimethopr im component On empty stomach with a glass of water. (Same As: Bactrim DS, Septra DS) docusate No Notes: Memoria sodium 7-31 (Same as: l 14:00: Colace) (Do Not Crush) sennosides, No Notes: Kalia aida FCI 8.6 MG 7-31 (Same as: l Oral Tablet 14:00: Senokot) [facility] Pred[facility] No Notes: Memor ia 7-31 Take with l 14:00: food. insulin, No Notes: Memoria isophane 7-30 (Same as: l 23:00: Humulin N) Roll in palms of hands gently; Do not shake vigorously . WASTE: F/P - Black; E - [facility] Trash Bin Stable for 31 days at room temperatur e Expires in days from ____Date insulin, No Notes: Memoria isophane 7-30 (Same as: l 14:59: Humulin N) [place] Roll in palms of hands gently; Do not shake vigorously . WASTE: F/P - Black; E - [facility] Trash Bin Stable for 31 days at room temperatur e Expires in days from ____Date heparin No Notes: Memoria sodium, 12-27 porcine l porcine 21:00: heparin [place] 2500 UNT/ML 00 Injectable Solution Dextrose No 12.5 gm, Memor ia 50% Syringe 12-27 25 mL, l 20:14: Route: [place] 00 IVP, Drug Form: INJ, Dosing Weight 92, kg, PRN, PRN Blood Glucose Results, Start date: 12/27/18 15:14:00 CDT, Duration: 30 day, Stop date: 01/26/19 15:13:00 CDT, 0 Glucagon No 1 mg, Memoria 12-27 Route: IM, l 20:14: Drug form: [place] 00 PDR/INJ, PRN, Dosing Weight 92, kg, PRN Blood Glucose Results, Start date: 12/27/18 15:14:00 CDT, Duration: 30 day, Stop date: 01/26/19 15:13:00 CDT, 0 Insulin No Notes: Memoria regular 12-27 (Same as: l 20:14: Humulin R) [place] 00 Roll in palms of hands gently; Do not shake vigorously . WASTE: F/P - Black; E - [facility] Trash Bin Stable for 31 days at room temperatur e Expires in days from ____Date insulin, No Notes: Memoria isophane 12-27 (Same as: l 14:44: Humulin N) Jorge Alberto 00 Roll in palms of hands gently; Do not shake vigorously . WASTE: F/P - Black; E - [facility] Trash Bin Stable for 31 days at room temperatur e Expires in days from ____Date Zithromax No Notes: Memori a 250 mg oral 7 Take 1 l tablet 14:00: hour [place] 00 before or 2 hours after meals. (Same As: Zithromax) Lanolin No Notes: Memoria 0.157 MG/MG 12-27 (Same as: l / Menthol 05:46: Calmosepti He rmann 0.0044 00 ne) MG/MG / Petrolatum 0.24 MG/MG / Zinc Oxide 0.206 MG/MG Topical Ointment Famotidine No Notes: Memor ia 12-27 (Same as: l 03:00: Pepcid) [place] 00 Midodrine No Notes: Memori a 12-26 (Same l 22:00: as:Proamat [place] 00 ine) albumin No Notes: Memoria human 5% 12-26 LOT#: l intravenous 14:08: Jorge Alberto solution 00 ___ Mfg: WASTE: F/P - Red; E -Red (Same as: Albuminar) "blood product derivative " Midodrine No Notes: Memori a 12-26 (Same l 14:00: as:Proamat [place] 00 ine) azithromyci No Notes: Kalia aida n 500 mg 12-26 Take 1 l oral tablet 14:00: hour Berto n 00 before or 2 hours after meals. (Same As: Zithromax) Calcium No 3 gm, Memoria Gluconate 12-26 Route: IV, l 14:00: Continuous [place] , Dosing Weight 92, kg, Start date: 12/26/18 9:00:00 CDT, Duration: 30 day, Stop date: 01/25/19 8:59:00 CDT albumin No 2.25 Memoria human 5% 12-26 Liter, l intravenous 13:41: Route: IV, [place] solution 00 Dosing Weight 92, kg, ONCE, Start date: 12/26/18 8:41:00 CDT, Stop date: 12/26/18 8:41:00 CDT, Indication : Plasmapher esis Norepinephr No Notes: Not Memoria ine 28 for direct l 02:03: administra [place] 00 tion - DILUTE. Protect from light. (Same as:Levophe d). Administer by either central venous catheter or peripheral ly-inserte d central catheter (PICC) line. Insulin No Notes: Memoria regular 100 -28 Final l unit + 01:23: Concentrat Gerda nn 00 ion 1unit/1ml WASTE: F/P - Black; E - [facility] Trash Bin Dextrose No 6.25 gm, Memor ia 50% Syringe 12-26 12.5 mL, l 01:23: Route: [place] 00 IVP, Drug Form: INJ, Dosing Weight 92, kg, PRN, PRN Abnormal Lab Result, Start date: 12/25/18 20:23:00 CDT, Duration: 30 day, Stop date: 01/24/19 20:22:00 CDT, 0 Famotidine No Notes: Memor ia - (Same as: l 22:00: Pepcid) Jorge Alberto 00 Mestinon No Notes: Memoria 12-25 (Same as: l 21:00: Mestinon) Sodium No Notes: SEE Memor ia Chloride 3% 12-25 RT l inhalation 20:00: DOCUMENTAT H ermann solution 00 ION (Same as: Hypertonic Saline 3%, Inhalation ) fondaparinu No Notes: Kalia aida x 12-25 (Same as: l 17:00: Arixtra) Albuterol 1 No Notes: SEE Memoria MG/ML 12-25 RT l Inhalant 16:11: DOCUMENTAT Her restrepo Solution 00 ION (Same as: Proventil) Calcium No Notes: Memoria Gluconate 12-25 WASTE: F/P l 16:00: - Sink; E [place] - Municipal Trash Bin albumin No Notes: Memoria human 5% 12-25 LOT#: l intravenous 15:35: Jorge Alberto solution 00 ___Mfg:___ ___ (Same as: Albuminar) "blood product derivative " WASTE: F/P - Red; E -Red MEDICATION WASTE Product Size: 25 gm Product Wasted: ___ gm Prednisone No Notes: Memor ia 7-27 Take with l 14:00: food. [place] 00 Thyroxine No Notes: Memori a 7-27 Take 1 l 11:30: hour [place] 00 before or 2 hours after meal; Enteral feeds may interefere with the absorption of this medication . (Same as:Synthro id) ocular No Notes: Memoria lubricant 12-25 (Same as: l 05:00: Lacri-Lube Jorge Alberto 00 , Puralube, Duratears Naturale, Artificial Tears, and Tears Again ) Prednisone No 50 mg = 1 Me moria 50 MG Oral - tab, PO, l Tablet 04:55: Daily, 0 Jorge Alberto 00 Refill(s) rosuvastati No 20 mg = 1 M emoria n 20 mg - tab, PO, l oral tablet 04:55: Bedtime, 0 Jorge Alberto 00 Refill(s) ramipril 10 Yes 10 mg = 1 M emoria mg oral - cap, PO, l capsule 04:55: Daily, 0 Berto n 00 Refill(s) Amlodipine Yes 10 mg, PO, M emoria 12-25 Daily, 0 l 04:55: Refill(s) [place] 00 Furosemide No 80 mg, PO, M emoria 12-25 Daily, 0 l 04:55: Refill(s) Potassium Yes 20 mEq, Memor ia Chloride - PO, Daily, l 04:55: 0 [place] 00 Refill(s) Pyridostigm Yes 60 mg, PO, Memoria ine 12-25 Q8H, 0 l 04:55: Refill(s) [place] 00 sertraline Yes 25 mg = 1 Me moria 25 mg oral 7-27 tab, PO, l tablet 04:55: Daily, 0 Jorge Alberto 00 Refill(s) Thyroxine Yes 88 Memoria - microgram, l 04:55: PO, Daily, [place] 00 0 Refill(s) Alendronic Yes 70 mg = 1 Me moria acid 70 MG 7-27 tab, PO, 0 l Oral Tablet 04:55: Refill(s) H ermann [Fosamax] 00 Levemir No SUB-Q, 0 Memori a 7-27 Refill(s) l 04:55: Trulicity Yes SUB-Q, 0 Kalia aida Pen 7-27 Refill(s) l 04:55: Famotidine No 20 mg, 2 Mem oria 7-27 mL, Route: l 02:00: IVP, Drug form: INJ, Q12H, Dosing Weight 102.273, kg, Start date: 12/24/18 21:00:00 CDT, Duration: 30 day, Stop date: 01/23/19 9:00:00 CDT, 0 docusate No Notes: Memoria sodium 7-27 (Same as: l 02:00: Colace) sennosides, No Notes: Kalia aida FCI 8.6 MG 7-27 (Same as: l Oral Tablet 02:00: Senokot) [facility] Ceftriaxone No Notes: Memoria 7-27 MEDICATION l 02:00: WASTE Product Size: 2000 mg Product Wasted: ___ mg Albuterol No Notes: Memori a 0.833 MG/ML 7-27 (Same as: l / 01:57: Duoneb) Ipratropium 00 [place] 0.167 MG/ML Inhalant Solution [DuoNeb] chlorhexidi No Notes: Kalia aida ne 7-27 (Same As: l gluconate 01:00: Peridex) Herm mercy 1.2 MG/ML Mouthwash Flagyl No 500 mg, Memoria 7-27 100 mL, l 00:00: Route: IVPB, Drug form: INJ, ABXQ8H, Dosing Weight 102.273, kg, Start date: 12/24/18 19:00:00 CDT, Duration: 7 day, Stop date: 12/31/18 6:00:00 CDT, ABX Indication : Bacteremia , 0 Vancomycin No 2001 mg: Me moria 7-27 infuse l 00:00: over 2.5 hours For adult patients only: Round to nearest 250 mg per medical staff approval MEDICATION WASTE Product Size: 1000 mg Product Wasted: ___ mg Tylenol No 100.4 F, Memor ia 7-26 Start l 23:39: date: 12/24/18 18:39:00 CDT, Duration: 30 day, Stop date: 01/23/19 18:38:00 CDT, 0 Zofran No Notes: Memor ia 7-26 MEDICATION l 23:39: WASTE Product Size: 4 mg Product Wasted: ___ mg Fentanyl No 1,000 Memoria 7-26 microgram, l 23:39: 20 mL, Rate: Titrate, Start Dose: 50 microgram/ hr, Titration: 25 microgram/ hour every 15 minutes, Goal(s): RASS 0, Max Dose: 300 microgram/ hr, Route: IV, Dosing Weight 102.273 kg, Total Volume: 20, Start date: 12/24/18 18:39:00 CDT, D... Potassium No Notes: Memori a Chloride - (Same as: l 23:37: KCL) Infuse no faster than 10 mEq/hr if given peripheral ly. sodium No Notes: Memoria phosphate 7-26 Infuse l 23:37: over 4 00 hour. Do not infuse phosphorou s concurrent ly in the same line as TPN or IVF that contains calcium. For double lumen central lines, phosphorou s may be infused in a separate lumen from TPN. potassium No Notes: Memori a phosphate 7-26 (Same as: l 23:37: K Phosphate. ) Do not infuse phosphorou s concurrent ly in the same line as TPN or IVF that contains calcium. For double lumen central lines, phosphorou s may be infused in a separate lumen from TPN. 1 mMol phoshate has 1.47 mEq potassium Infuse over 4 hours potassium No Notes: Memori a phosphate-s 7-26 (Same as: l odium 23:37: Phos-NaK) Each 1.5 250 mg-280 gm pkt has mg-160 mg 250mg oral powder phosphorou for s. Mix reconstitut w/2.5oz ion water and stir. Magnesium No Notes: Memori a Sulfate 12-24 WASTE: F/P l 23:37: - Sink; E - Municipal Trash Bin Magnesium No Notes: Memori a Oxide 12-24 (Same as: l 23:37: Mag-Ox [place] 00 400) Magnesium oxide [id number] g elemental magnesium Dose=____m g magnesium oxide (___mg elemental magnesium) Calcium No Notes: Memoria Gluconate 12-24 WASTE: F/P l 23:37: - Sink; E Jorge Alberto - Municipal Trash Bin Calcium No Notes: Memoria Carbonate 12-24 (Same As: l 500 MG 23:37: Tums) Jorge Alberto Calcium Tablet Carbonate 500 mg = 200 mg elemental calcium Dose = mg calcium carbonate ( mg elemental calcium) Dextrose No 12.5 gm, Memor ia 50% Syringe 12-24 25 mL, l 23:37: Route: [place] IVP, Drug Form: INJ, Dosing Weight 102.273, kg, PRN, PRN Blood Glucose Results, Start date: 12/24/18 18:37:00 CDT, Duration: 30 day, Stop date: 01/23/19 18:36:00 CDT, 0 Glucagon No 1 mg, Memoria 12-24 Route: IM, l 23:37: Drug form: [place] PDR/INJ, PRN, Dosing Weight 102.273, kg, PRN Blood Glucose Results, Start date: 12/24/18 18:37:00 CDT, Duration: 30 day, Stop date: 01/23/19 18:36:00 CDT, 0 chlorhexidi No Notes: Kalia aida ne 12-24 (Same As: l gluconate 23:37: Peridex) Herm mercy 1.2 MG/ML 00 Mouthwash Insulin No Notes: Memoria regular 12-24 Roll in l 23:37: palms of Jorge Alberto hands gently; do not shake vigorously . (Same as: Humulin R) WASTE: F/P - Black; E - Municipal Trash Bin Stable for 31 days at room temperatur e Expires in days from Norepinephr No Notes: Not Memoria ine - for direct l 23:37: administra Jorge Alberto 00 tion - DILUTE. Protect from light. (Same as:Levophe d). Administer by either central venous catheter or peripheral ly-inserte d central catheter (PICC) line. Isolyte S No Notes: Memori a PH 7.4 7- (Same as: l 1,000 mL 23:37: Isolyte S [facility] 00 PH 7.4) Ibuprofen No Notes: Memori a 11-29 (Same as: l 14:35: Motrin) [place] 00 "Do Not Crush" Give with food. Tylenol No Notes: Max Kalia aida 11-29 acetaminop l 14:32: hen 4000 Jorge Alberto 00 mg/day (4 gm/day). (Same as: Tylenol Extra Strength) Pyridostigm Pyridostigm Yes SUUR TAKE 1 [facility] ine Cadet ine Cadet 6-25 BILICILER TABLET BY ity of 60 MG Oral 60 MG Oral 00:00: M.D. MOUTH [place] Tablet Tablet 00 THREE Physici TIMES A ans DAY Sertraline Sertraline Yes SUUR 1 QD TAKE 1 [facility] HCl - 25 MG HCl - 25 MG 6-14 BILICILER TABLET BY ity of Oral Tablet Oral Tablet 00:00: M.D. MOUTH [place] 00 EVERY DAY Physici ans predniSONE predniSONE Yes SUUR 1 QD TAKE 1 [facility] 20 MG Oral 20 MG Oral 5-10 BILICILER TABLET BY ity of Tablet Tablet 00:00: M.D. MOUTH [place] 00 EVERY DAY Physici ans Mestinon No Notes: Memoria 4-25 (Same as: l 17:00: Mestinon) Jorge Alberto 00 Insulin No Notes: Memoria Lispro 4-25 (Same as: l 08:43: Humalog) Jorge Alberto 00 Roll in palms of hands gently; Do not shake vigorously . WASTE: F/P - Black; E - Municipal Trash Bin Stable for 28 days at room temperatur e. Expires in days from ____Date Glucagon No 1 mg, Memoria 4-25 Route: IM, l 08:43: Drug form: PDR/INJ, PRN, Dosing Weight 91.818, kg, PRN Blood Glucose Results, Start date: 09/23/18 3:43:00 CDT, Duration: 30 day, Stop date: 10/23/18 3:42:00 CDT Dextrose No 12.5 gm, Memor ia 50% Syringe 25 25 mL, l 08:43: Route: IVP, Drug Form: INJ, Dosing Weight 91.818, kg, PRN, PRN Blood Glucose Results, Start date: 09/23/18 3:43:00 CDT, Duration: 30 day, Stop date: 10/23/18 3:42:00 CDT Arixtra No Notes: Memoria 4-24 (Same as: l 22:00: Arixtra) Famotidine No Notes: Memor ia 4-24 (Same as: l 14:00: Pepcid) sennosides, No Notes: Kalia aida FCI 8.6 MG 4-24 (Same as: l Oral Tablet 14:00: Senokot) He ropinirole No Notes: Memor ia 4-24 (Same as: l 14:00: Requip) Ramipril No Notes: Memoria 4-24 (Same l 14:00: as:Altace) Prednisone No Notes: Memor ia 4-24 Take with l 14:00: food. Furosemide No Notes: Memor ia 20 MG Oral 4-24 (Same as: l Tablet 14:00: Lasix) May cause GI upset. Give with food or milk. Amlodipine No Notes: Memor ia 4-24 (Same as: l 14:00: Norvasc) Docusate No Notes: Memoria Sodium 50 4-24 (Same as l MG / 14:00: Senokot-S) noside Equiv. to FCI 8.6 MG [place] Oral Tablet e. Levothroid Yes 88 Memoria 88 mcg 4-24 microgram l (0.088 mg) 02:02: = 1 tab, Her restrepo oral tablet 00 PO, Daily, 0 Refill(s) rosuvastati No Notes: Kalia aida n 4-24 (Same As: l 02:00: Crestor) Insulin No 20 unit, Memori a Glargine 4-24 0.2 mL, l 100 UNT/ML 02:00: Route: Gerda nn Injectable 00 SUB-Q, Solution Drug form: SOLN, Bedtime, Dosing Weight 91.818, kg, Start date: 09/21/18 21:00:00 CDT, Duration: 30 day, Stop date: 10/20/18 21:00:00 CDT Sertraline No Notes: Memor ia 4-24 (Same as: l 00:00: Zoloft) Pyridostigm No Notes: Kalia aida ine 4-24 (Same as: l 00:00: Mestinon) Dextrose No 25 gm, 50 Kalia aida 50% Syringe 4-23 mL, Route: l 23:24: IVP, Drug Form: INJ, Dosing Weight 91.818, kg, PRN, PRN Abnormal Lab Result, Start date: 09/21/18 18:24:00 CDT, Duration: 30 day, Stop date: 10/21/18 18:23:00 CDT Regular No Notes: Memoria Insulin, 4-23 (Same as: l Human 100 23:24: Humulin R) He rmann UNT/ML 00 Roll in Injectable palms of Solution hands gently; Do not shake vigorously . WASTE: F/P - Black; E - Municipal Trash Bin Stable for 31 days at room temperatur e Expires in days from ____Date Docusate No Notes: Memoria 4-23 (Same as: l 23:18: Colace) (Do Not Crush) rOPINIRole rOPINIRole Yes MAN 1 TAKE 1 [facility] HCl - 2 MG HCl - 2 MG 4-23 KESER M.D. TABLET AT ity of Oral Tablet Oral Tablet 00:00: BEDTIME. [place] 00 Physici ans Occupationa Yes See Memori a l Therapy 09-19 Instructio l 16:48: ns, MISC, Jorge Alberto 00 ONCALL, Evaluate and Treat __3_ times per week for __4__ weeks, # 1 bag, 0 Refill(s) Physical Yes See Memoria Therapy 09-19 Instructio l 16:48: ns, MISC, [place] 00 ONCALL, Evaluate and Treat _3__ times per week for __4__ weeks, # 1 bag, 0 Refill(s) Ramipril 2018- No Notes: Memoria -21 (Same l 15:56: as:Altace) Jorge Alberto 00 Furosemide Yes 20 mg = 1 Me moria 20 MG Oral 4-21 tab, PO, l Tablet 15:44: Every Jorge Alberto 00 Other Day, # 15 tab, 3 Refill(s) amLODIPine Yes 10 mg = 1 Me moria 10 mg oral 4-21 tab, PO, l tablet 15:44: Daily, # [place] 00 30 tab, 3 Refill(s) predniSONE 2018- Yes 60 mg = 3 Me moria 20 mg oral 4-21 tab, PO, l tablet 15:44: Daily, X Jorge Alberto 30 day, # 90 tab, 0 Refill(s) pyridostigm 2018-0 Yes 60 mg = 1 M emoria ine 60 mg 4-21 tab, PO, l oral tablet 15:44: Q8Hnow, # H erm 90 tab, 3 Refill(s) ramipril 5 Yes 10 mg = 2 Me moria mg oral 4-21 cap, PO, l capsule 15:44: Daily, # Berto n 00 60 cap, 3 Refill(s) sennosides, 2019-0 Yes 8.6 mg = 1 Memoria FCI 8.6 MG 4-21 tab, PO, l Oral Tablet 15:44: BID, X 30 H ermann 00 day, # 60 tab, 3 Refill(s) sertraline 2018-0 Yes 25 mg = 1 Me moria 25 mg oral 4-21 tab, PO, l tablet 15:44: Q24H, # 30 Gerda nn 00 tab, 0 Refill(s) insulin, 2019-0 No Notes: Memoria isophane 4-20 (Same as: l 22:00: Humulin N) Jorge Alberto 00 Roll in palms of hands gently; Do not shake vigorously . WASTE: F/P - Black; E - Municipal Trash Bin Stable for 31 days at room temperatur e Expires in days from ____Date gabapentin 2019-0 No 300 mg, Kalia aida 300 MG Oral 4-20 Route: PO, l Capsule 05:54: Drug form: Herm mercy 00 CAP, ONCE, Dosing Weight 91.378, kg, Start date: 09/18/18 0:54:00 CDT, Stop date: 09/18/18 0:54:00 CDT normal No 1,000 mL, Memori a saline 0.9% 4-20 Rate: 75 l IV 1,000 mL 05:54: ml/hr, Herm mercy 00 Infuse over: 13.3 hr, Route: IV, Dosing Weight 91.378 kg, Total Volume: 1,000, Start date: 09/18/18 0:54:00 CDT, Duration: 30 day, Stop date: 10/18/18 0:53:00 CDT, 1.99, m2 ramipril 5 No 10 mg = 2 Me moria mg oral 4-19 cap, PO, l capsule 23:56: Daily, # Berto n 00 30 cap, 1 Refill(s), Pharmacy: [id number] metoprolol 2018- No 25 mg = 1 Me moria tartrate 25 4-19 tab, PO, l mg oral 23:56: Q12H, # 60 Herm mercy tablet 00 tab, 1 Refill(s), Pharmacy: [id number] Furosemide 2019-0 No 20 mg = 1 Me moria 20 MG Oral 4-19 tab, PO, l Tablet 23:56: Every Jorge Alberto 00 Other Day, # 30 tab, 1 Refill(s), Pharmacy: [id number] amLODIPine 2018-0 No 10 mg = 1 Me moria 10 mg oral 4-19 tab, PO, l tablet 23:56: Daily, # [place] 00 30 tab, 1 Refill(s), Pharmacy: [facility] #[id number] sertraline 2019-0 No 25 mg = 1 Me moria 25 mg oral 4-19 tab, PO, l tablet 23:56: Q24H, # 30 Gerda nn 00 tab, 1 Refill(s), Pharmacy: [facility] #[id number] sennosides, 2019-0 No 8.6 mg = 1 Memoria FCI 8.6 MG 4-19 tab, PO, l Oral Tablet 23:56: BID, # 60 H ermann 00 tab, 0 Refill(s), Pharmacy: [facility] #[id number] pyridostigm 2019-0 No 60 mg = 1 M emoria ine 60 mg 4-19 tab, PO, l oral tablet 23:56: Q8Hnow, # H ermann 00 90 tab, 1 Refill(s), Pharmacy: [facility] #[id number] predniSONE 2019-0 No 60 mg = 3 Me moria 20 mg oral 4-19 tab, PO, l tablet 23:56: Daily, # Jorge Alberto 00 30 tab, 1 Refill(s), Pharmacy: [facility] #[id number] Insulin 2018-0 No Notes: Memoria regular -19 (Same as: l 23:52: Humulin R) Jorge Alberto 00 Roll in palms of hands gently; Do not shake vigorously . WASTE: F/P - Black; E - Municipal Trash Bin Stable for 31 days at room temperatur e Expires in days from ____Date Glucagon 2019-0 No 1 mg, Memoria -19 Route: IM, l 23:52: Drug form: Jorge Alberto 00 PDR/INJ, PRN, Dosing Weight 91.378, kg, PRN Blood Glucose Results, Start date: 09/17/18 18:52:00 CDT, Duration: 30 day, Stop date: 10/17/18 18:51:00 CDT Dextrose 2019-0 No 25 gm, 50 Kalia aida 50% in 4-19 mL, Route: l Water 23:52: IVP, Drug [place] (bolus) IV 00 Form: INJ, Dosing Weight 91.378, kg, PRN, PRN Blood Glucose Results, Start date: 09/17/18 18:52:00 CDT, Duration: 30 day, Stop date: 10/17/18 18:51:00 CDT Melatonin No 1 mg, Memoria 0.25 mg/mL 19 Route: PO, l oral liquid 02:00: Dosing [facility] 00 Weight 91.378, kg, Bedtime, Start date: 09/16/18 21:00:00 CDT, Duration: 30 day, Stop date: 10/15/18 21:00:00 CDT insulin, No Notes: Memoria isophane 4-18 (Same as: l 15:30: Humulin N) [place] 00 Roll in palms of hands gently; Do not shake vigorously . WASTE: F/P - Black; E - Municipal Trash Bin Stable for 31 days at room temperatur e Expires in days from ____Date Amlodipine No Notes: Memor ia 4-18 (Same as: l 14:00: Norvasc) Jorge Alberto 00 melatonin 1 No 1 mg, 1 Mem oria mg/mL oral 4-18 mL, Route: l solution 05:53: PO, Drug Gerda nn 00 Form: LIQ, Dosing Weight 91.378, kg, ONCE, STAT, Start date: 09/16/18 0:53:00 CDT, Stop date: 09/16/18 0:53:00 CDT insulin, No Notes: Memoria isophane 4-18 (Same as: l 05:00: Humulin N) [place] Roll in palms of hands gently; Do not shake vigorously . WASTE: F/P - Black; E - Municipal Trash Bin Stable for 31 days at room temperatur e Expires in days from ____Date Insulin No Notes: Memoria regular 4-18 (Same as: l 01:34: Humulin R) [place] 00 Roll in palms of hands gently; Do not shake vigorously . WASTE: F/P - Black; E - Municipal Trash Bin Stable for 31 days at room temperatur e Expires in days from ____Date Miralax No Notes: Memoria 4-17 Dissolve l 14:00: in 8 oz of [place] 00 water or juice. (Same as: Miralax) lansoprazol No Notes: Kalia aida e 4-17 Take 1 l 14:00: hour Jorge Alberto 00 before or 2 hours after meal; Expires in 14 days. Shake well before use. (Same as:Prevaci d) Compound ed Product - formulatio n not commercial ly available* * insulin, No Notes: Memoria isophane 4-17 (Same as: l 05:00: Humulin N) [place] 00 Roll in palms of hands gently; Do not shake vigorously . WASTE: F/P - Black; E - Municipal Trash Bin Stable for 31 days at room temperatur e Expires in days from ____Date Saline No Notes: Memoria Flush 0.9% -17 (Same as: l 02:00: BD Jorge Alberto 00 Posiflush) Lasix No Notes: Memoria 4-17 (Same as: l 02:00: Lasix) Jorge Alberto 00 MEDICATION WASTE Product Size: 40 mg Product Wasted: ___ mg docusate No Notes: Memoria sodium 100 4-16 (Same as: l mg oral 22:00: Colace) Jorge Alberto capsule 00 (Do Not Crush) sennosides, No Notes: Kalia aida FCI 4-16 (Same as: l 22:00: Senokot) Jorge Alberto 00 insulin, No Notes: Memoria isophane 4-16 (Same as: l 21:22: Humulin N) [place] 00 Roll in palms of hands gently; Do not shake vigorously . WASTE: F/P - Black; E - Municipal Trash Bin Stable for 31 days at room temperatur e Expires in days from ____Date Insulin No Notes: Memoria regular 4-16 (Same as: l 21:20: Humulin R) [place] 00 Roll in palms of hands gently; Do not shake vigorously . WASTE: F/P - Black; E - Municipal Trash Bin Stable for 31 days at room temperatur e Expires in days from ____Date Glucagon No 1 mg, Memoria 4-16 Route: IM, l 21:20: Drug form: [place] 00 PDR/INJ, PRN, Dosing Weight 91.378, kg, PRN Blood Glucose Results, Start date: 09/14/18 16:20:00 CDT, Duration: 30 day, Stop date: 10/14/18 16:19:00 CDT Dextrose No 12.5 gm, Memor ia 50% Syringe 4-16 25 mL, l 21:20: Route: Jorge Alberto 00 IVP, Drug Form: INJ, Dosing Weight 91.378, kg, PRN, PRN Blood Glucose Results, Start date: 09/14/18 16:20:00 CDT, Duration: 30 day, Stop date: 10/14/18 16:19:00 CDT Saline No Notes: Memoria Flush 0.9% -16 (Same as: l 16:01: BD Jorge Alberto Posiflush) Nystatin No Notes: Memoria 100 UNT/MG -16 (Same l Topical 16:01: as:Mycosta Herm mercy Powder 00 tin, Nilstat) For external use only. Amlodipine No Notes: Memor ia -16 (Same as: l 14:00: Norvasc) [place] 00 Lasix No Notes: Memoria 4-16 (Same as: l 13:45: Lasix) Jorge Alberto MEDICATION WASTE Product Size: 40 mg Product Wasted: ___ mg Albuterol No Notes: Memori a 0.833 MG/ML -16 (Same as: l / 12:48: Duoneb) [place] Ipratropium 00 [place] 0.167 MG/ML Inhalant Solution [DuoNeb] Potassium No Notes: Memori a Chloride 4-16 (Same as: l 1.33 MEQ/ML 07:31: Potassium H ermann Oral 00 Chloride) Solution Sertraline No Notes: Memor ia 4-16 (Same as: l 02:00: Zoloft) Immunoglobu No 25 gm, Kalia aida lawanda G 4-16 Route: IV, l 02:00: Q24H, Dosing Weight 91.378, kg, Start date: 09/13/18 21:00:00 CDT, Duration: 1 day, Stop date: 09/13/18 21:00:00 CDT, Indication : Myasthenia gravis metoprolol No Notes: Memor ia tartrate 4-16 (Same as: l 02:00: Lopressor) Gamunex-C No Notes: Memori a 25 gm + 4-15 WASTE: F/P l empty 20:00: - Red; E container 1 00 -Red Lot bag # Mf g: __ (Gamunex - C) "blood product derivative " iodixanol No 100 mL, Memor ia 4-15 Route: l 16:50: IVP, Drug Form: SOLN, Dosing Weight 91.378, kg, ONCALL, STAT, Start date: 09/13/18 11:50:00 CDT, Duration: 1 doses or times, Dose = 2.2ml/kg, Max dose = 100ml -- "To be infused by Radiology Staff ONLY" Prednisone No Notes: Memor ia 4-15 Take with l 14:00: food. pantoprazol No Notes: For Memoria e 4-15 IV push l 14:00: reconstitu te with 10 ml 0.9% sodium chloride and push over 2 minutes. (Same as: Protonix) chlorhexidi No Notes: Kalia aida ne 4-15 (Same As: l gluconate 14:00: Peridex) Herm mercy 1.2 MG/ML Mouthwash Norepinephr No Notes: Not Memoria ine 4-15 for direct l 11:04: administra tion - DILUTE. Protect from light. (Same as:Levophe d). Administer by either central venous catheter or peripheral ly-inserte d central catheter (PICC) line. propofol 10 No Notes: If M emoria mg/mL 4-15 Diprivan - l (Titrate.) 11:04: change Gerda nn IV 1,000 mg 00 bottle & tubing every 12 hr Per state nursing law propofol can only be given by a nurse if patient is intubated or being intubated (unless the nurse is a ARTIFICIAL LIMB FITTER). Same as: Diprivan Rocuronium No Notes: Memor ia 4-15 (Same as: l 11:01: Zemeron) Jorge Alberto 00 Fentanyl No Notes: Memoria 4-15 (Same as: l 11:01: Sublimaze) [place] 00 Preservat kimberly free. Propofol No Notes: If Kalia aida 4-15 Diprivan - l 11:01: change Jorge Alberto 00 bottle & tubing every 12 hr Per state nursing law propofol can only be given by a nurse if patient is intubated or being intubated (unless the nurse is a ARTIFICIAL LIMB FITTER). Same as: Diprivan ocular No Notes: Memoria lubricant 4-15 (Same as: l 11:00: Lacri-Lube Jorge Alberto 00 , Puralube, Duratears Naturale, Artificial Tears, and Tears Again ) normal No 1,000 mL, Memori a saline 0.9% -15 Rate: 75 l IV 1,000 mL 10:43: ml/hr, Herm mercy 00 Infuse over: 13.3 hr, Route: IV, Dosing Weight 91.378 kg, Total Volume: 1,000, Start date: 09/13/18 5:43:00 CDT, Duration: 30 day, Stop date: 10/13/18 5:42:00 CDT, 1.99, m2 chlorhexidi No Notes: Kalia aida ne 4-15 (Same As: l gluconate 07:43: Peridex) Herm mercy 1.2 MG/ML 00 Mouthwash Insulin No Notes: Memoria regular 100 4-15 Final l unit + 06:52: Concentrat Gerda nn 00 ion 1unit/1ml WASTE: F/P - Black; E - Municipal Trash Bin Dextrose No 6.25 gm, Memor ia 50% Syringe 4-15 12.5 mL, l 06:52: Route: Jorge Alberto 00 IVP, Drug Form: INJ, Dosing Weight 91.378, kg, PRN, PRN Abnormal Lab Result, Start date: 09/13/18 1:52:00 CDT, Duration: 30 day, Stop date: 10/13/18 1:51:00 CDT Adult No Notes: Memoria Parenteral 4-15 Must use l Nutrition 03:00: 1.2 micron He rmann filter AND Peripheral Lipids (PPN not should not TPN) 2,040 be mL administer ed to patients who are allergic to soy, fish, egg or peanuts. Immunoglobu No 50 gm, Kalia aida lawanda G 4-15 Route: IV, l 02:00: Q24H, Jorge Alberto Dosing Weight 91.378, kg, Start date: 09/12/18 21:00:00 CDT, Duration: 1 day, Stop date: 09/12/18 21:00:00 CDT, Indication : Myasthenia gravis Gamunex-C No Route: Memori a 75 gm + 4-15 IVPB, Drug l empty 02:00: form: Jorge Alberto container 1 00 SOLN, bag Bedtime, Start date: 09/12/18 21:00:00 CDT, Duration: 1 doses or times, Stop date: 09/12/18 21:00:00 CDT, Indication : Myasthenia gravis Gamunex-C No Notes: Memori a 50 gm + 4-15 WASTE: F/P l empty 02:00: - Red; E Jorge Alberto container 1 00 -Red Lot bag # Mf g: __ (Gamunex - C) Non-Formul jordi "blood product derivative " Pyridostigm No Notes: Klaia aida ine 4-15 (Same as: l 00:09: Mestinon) [place] 00 Calcium No Notes: Memoria Carbonate 4-14 (Same As: l 500 MG 21:44: Tums) Jorge Alberto Chewable 00 Calcium Tablet Carbonate 500 mg = 200 mg elemental calcium Dose = mg calcium carbonate ( mg elemental calcium) Calcium No Notes: Memoria Gluconate - WASTE: F/P l 21:44: - Sink; E Jorge Alberto 00 - Municipal Trash Bin Magnesium No Notes: Memori a Oxide -14 (Same as: l 21:44: Mag-Ox [place] 00 400) Magnesium oxide 182jd=409i g elemental magnesium Dose=____m g magnesium oxide (___mg elemental magnesium) Magnesium No Notes: Memori a Sulfate 09-12 WASTE: F/P l 21:44: - Sink; E [place] 00 - Municipal Trash Bin potassium No Notes: Memori a phosphate-s 09-12 (Same as: l odium 21:44: K-Phos [place] phosphate 00 Neutral, 250 mg-280 Phospha mg-160 mg 250 oral powder Neutral) for reconstitut ion Potassium No Notes: Memori a Chloride 09-12 (Same as: l 21:44: K-Dur 20) "Do Not Crush" Give with food and full glass of water For patients unable to swallow tablet, dissolve in one half glass of water. Allow about 2 minutes for the tablets to disintegra te. Stir before giving to prepare slurry and administer . Please exclude Patient s with feeding tube less than 14 Micronesian (Dobhoff, J-tube etc) and pediatric and patients. sodium No Notes: Memoria phosphate -14 Infuse l 21:44: over 4 Jorge Alberto 00 hour. Do not infuse phosphorou s concurrent ly in the same line as TPN or IVF that contains calcium. For double lumen central lines, phosphorou s may be infused in a separate lumen from TPN. potassium No Notes: Memori a phosphate -14 (Same as: l 21:44: K Jorge Alberto 00 Phosphate. ) Do not infuse phosphorou s concurrent ly in the same line as TPN or IVF that contains calcium. For double lumen central lines, phosphorou s may be infused in a separate lumen from TPN. 1 mMol phoshate has 1.47 mEq potassium Infuse over 4 hours benzocaine No Notes: Memor ia topical gel -14 (Same As: l 21:38: Maximum [place] 00 Strength PM Orajel ) Immunoglobu No 75 gm, Kalia aida lawanda G 4-14 Route: IV, l 17:00: Drug form: Jorge Alberto 00 INJ, Q24H, Dosing Weight 91.378, kg, Start date: 09/12/18 12:00:00 CDT, Duration: 1 doses or times, Stop date: 09/12/18 12:00:00 CDT, Indication : Myasthenia gravis Magnesium No Notes: Memori a Sulfate 14 WASTE: F/P l 14:00: - Sink; E - Municipal Trash Bin Calcium No Notes: Memoria Gluconate 14 WASTE: F/P l 12:20: - Sink; E - Municipal Trash Bin Pyridostigm No Notes: Kalia aida ine 4-13 (Same as: l 21:00: Mestinon) Bacitracin No 1 appl, Kalia aida 4-13 Route: l 17:00: RIGHT EYE, Q4H, Drug form: OINT, Start date: 09/11/18 12:00:00 CDT, Duration: 30 day, Stop date: 10/11/18 8:00:00 CDT Labetalol No 20 mg, 4 Kalia aida 4-13 mL, Route: l 15:49: IV, Drug form: INJ, Q10Min, Dosing Weight 91.378, kg, PRN Hypertensi on, Start date: 09/11/18 10:49:00 CDT, Duration: 30 day, Stop date: 10/11/18 10:48:00 CDT Hydralazine No Notes: Kalia aida 4-13 (Same as: l 15:49: Apresoline ) metoprolol No Notes: Memor ia extended 4-13 (Same as: l release 14:00: Toprol XL) May split tab, but do not crush. Ramipril No Notes: Memoria 4-13 (Same l 14:00: as:Altace) fondaparinu No Notes: Kalia aida x 4-13 (Same as: l 14:00: Arixtra) Amlodipine No Notes: Memor ia 4-13 (Same as: l 14:00: Norvasc) Hydrochloro No Notes: Kalia aida thiazide 4-13 (Same as: l 14:00: Hydrodiuri Jorge Alberto 00 l) With food. Docusate No Notes: Memoria Sodium 50 4-13 (Same as l MG / 14:00: Senokot-S) sennosides, 00 Equiv. to [facility] 8.6 MG Cassidy-Colac Oral Tablet e. Furosemide No Notes: Memor ia 20 MG Oral 4-13 (Same as: l Tablet 14:00: Lasix) May cause GI upset. Give with food or milk. Gamunex-C No Notes: For Me moria 25 gm + 4-13 adults: l empty 02:00: use IBW of Berto n container 1 00 XX used bag for XX mg/kg per protocol WASTE: F/P - Red; E -Red Lot # Mf g: __ (Gamunex - C) "blood product derivative " rosuvastati No Notes: Kalia aida n 4-13 (Same As: l 02:00: Crestor) heparin No Notes: Memoria sodium, 4-13 porcine l porcine 02:00: heparin [place] 2500 UNT/ML 00 Injectable Solution Lacri-Lube No Notes: Memor ia 4-12 (Same as: l 22:00: Lacri-Lube , Puralube, Duratears Naturale, Artificial Tears, and Tears Again ) Pyridostigm No Notes: Kalia aida ine 4-12 (Same as: l 22:00: Mestinon) Saline No Notes: Memoria Flush 0.9% 4-12 (Same as: l 21:47: BD Posiflush) Benadryl No Notes: Memoria 4-12 (Same as: l 21:47: Benadryl) Solu-Medrol 0 No Notes: Kalia aida 4-12 (Same l 21:47: as:Solu-ME DROL, A-Methapre d) Zofran No Notes: Memoria 4-12 (Same as: l 21:44: Zofran) MEDICATION WASTE Product Size: 4 mg Product Wasted: ___ mg Immunoglobu No 36 gm, Kalia aida lawanda G 4-12 Route: l 21:42: IVPB, Drug form: SOLN, Daily, Dosing Weight 91.378, kg, Start date: 09/10/18 16:42:00 CDT, Duration: 5 day, Stop date: 09/15/18 9:00:00 CDT, Indication : Other see comments Insulin No 60 Memoria regular 4-12 units) l 13:17: WASTE: F/P - Black; E - Municipal Trash Bin Stable for 28 days at room temperatur e Expires in days from ____Date Glucagon 0 No 1 mg, Memoria 4-12 Route: IM, l 13:17: Drug form: PDR/INJ, PRN, Dosing Weight 91.378, kg, PRN Blood Glucose Results, Start date: 09/10/18 8:17:00 CDT, Duration: 30 day, Stop date: 10/10/18 8:16:00 CDT Dextrose 0 No 12.5 gm, Memor ia 50% Syringe 12 25 mL, l 13:17: Route: IVP, Drug Form: INJ, Dosing Weight 91.378, kg, PRN, PRN Blood Glucose Results, Start date: 09/10/18 8:17:00 CDT, Duration: 30 day, Stop date: 10/10/18 8:16:00 CDT Saline 0 No Notes: Memoria Flush 0.9% 09-10 (Same as: l 05:20: BD Posiflush) Dextrose 5% No 1,000 mL, Natasha duvallrigavino with 0.9% -12 Rate: 75 l NaCl IV 05:20: ml/hr, Jorge Alberto 1,000 mL 00 Infuse over: 13.3 hr, Route: IV, Dosing Weight 91.378 kg, Total Volume: 1,000, Start date: 09/10/18 0:20:00 CDT, Duration: 30 day, Stop date: 10/10/18 0:19:00 CDT, 1.99, m2 Streptococc 2018- No Notes: Kalia aida us 4-12 Shake well l pneumoniae 05:11: prior to Her restrepo serotype 1 25 use (Same capsular as: antigen Prevnar diphtheria 13) [id number] protein conjugate vaccine / Streptococc us pneumoniae serotype 14 capsular antigen diphtheria [id number] protein conjugate vaccine / Streptococc us pneumoniae serotype 18C capsular antigen d insulin 2018- No Notes: Memoria glargine 4-12 (Same as: l 03:00: Lantus) Do [place] not hold insulin without contacting prescriber WASTE: F/P - Black; E - Municipal Trash Bin "single patient use only" Insulin Yes 10 unit, Memori a Glargine -11 SUB-Q, l 100 UNT/ML 23:55: Bedtime, 0 H ermann Injectable 00 Refill(s) Solution Bacitracin No 1 appl, Kalia aida 0.5 UNT/MG 09-09 Route: l Ophthalmic 14:00: RIGHT EYE, H ermann Ointment 00 TID, Drug form: OINT, Start date: 09/09/18 9:00:00 CDT, Duration: 30 day, Stop date: 10/08/18 17:00:00 CDT D5W 1/2NS No 1,000 mL, Mem oria 1,000 mL -11 Rate: 75 l 12:53: ml/hr, Jorge Alberto Infuse over: 13.3 hr, Route: IV, Dosing Weight 94.3 kg, Total Volume: 1,000, Start date: 09/09/18 7:53:00 CDT, Duration: 30 day, Stop date: 10/09/18 7:52:00 CDT, 2.02, m2 Acyclovir No Notes: Me moria 4-11 MEDICATION l 01:00: WASTE Jorge Alberto Product Size: 500 mg Product Wasted: _0__ mg 0.5 ML Yes SUB-Q, Memoria dulaglutide 4-10 every l 3 MG/ML 23:50: Khang, 0 Gerda nn Prefilled 00 Refill(s) Syringe [Trulicity] Insulin Yes 20 unit, Memori a Glargine 4-10 SUB-Q, l 100 UNT/ML 23:50: Bedtime, # H ermann Injectable 00 3 mL, 3 Solution Refill(s) heparin No Notes: Memoria 4-10 porcine l 21:00: heparin [place] 00 Dextrose No 12.5 gm, Memor ia 50% Syringe 4-10 25 mL, l 14:49: Route: Jorge Alberto IVP, Drug Form: INJ, Dosing Weight 94.3, kg, PRN, PRN Blood Glucose Results, Start date: 09/08/18 9:49:00 CDT, Duration: 30 day, Stop date: 10/08/18 9:48:00 CDT Glucagon No 1 mg, Memoria 4-10 Route: IM, l 14:49: Drug form: [place] PDR/INJ, PRN, Dosing Weight 94.3, kg, PRN Blood Glucose Results, Start date: 09/08/18 9:49:00 CDT, Duration: 30 day, Stop date: 10/08/18 9:48:00 CDT Furosemide No Notes: Memor ia 20 MG Oral 3-22 (Same as: l Tablet 14:00: Lasix) May cause GI upset. Give with food or milk. Furosemide No 40 mg, Memor ia 20 MG Oral 3-22 Route: PO, l Tablet 02:00: Drug form: Gerda nn 00 TAB, Daily, Dosing Weight 111.6, kg, Start date: 08/19/18 21:00:00 CDT, Duration: 30 day, Stop date: 09/18/18 9:00:00 CDT clopidogrel 2018- Yes 75 mg = 1 M emoria 75 mg oral 3-22 tab, PO, l tablet 00:09: Daily, # [place] 00 90 tab, 3 Refill(s), Pharmacy: [facility] [id number] rosuvastati Yes 20 mg = 2 M emoria n 10 mg 3-22 tab, PO, l oral tablet 00:09: Bedtime, # Jorge Alberto 00 180 tab, 3 Refill(s) ramipril 5 2019- Yes 10 mg = 2 Me moria mg oral 3-22 cap, PO, l capsule 00:09: Q24H, # [place] 00 180 cap, 3 Refill(s) Insulin 2019-0 Yes 20 unit, Memori a Glargine 3-22 SUB-Q, l 100 UNT/ML 00:09: QPM, # 15 He rmann Injectable 00 mL, 3 Solution Refill(s) Furosemide Yes 20 mg = 1 Me moria 20 MG Oral 3-22 tab, PO, l Tablet 00:09: Every Jorge Alberto 00 Other Day, # 15 tab, 0 Refill(s) amLODIPine Yes 5 mg = 1 Mem oria 5 mg oral 3-22 tab, PO, l tablet 00:09: Daily, # Jorge Alberto 00 90 tab, 3 Refill(s) metoprolol Yes 25 mg = 1 Me moria tartrate 25 3-22 tab, PO, l mg oral 00:09: BID, # 60 Gerda nn tablet 00 tab, 0 Refill(s) Furosemide No Notes: Memor ia 20 MG Oral 3-21 (Same as: l Tablet 15:14: Lasix) May cause GI upset. Give with food or milk. Ramipril No Notes: Memoria 3-21 (Same l 15:00: as:Altace) Hydralazine No 10 mg, Kalia aida 3-21 Route: IV, l 14:10: ONCE, Dosing Weight 111.6, kg, Start date: 08/19/18 9:10:00 CDT, Stop date: 08/19/18 9:10:00 CDT Amlodipine No Notes: Memor ia 3-21 (Same as: l 14:00: Norvasc) Fentanyl 2018-0 No 50 Memoria 3-21 microgram, l 13:49: Route: IV, ONCE, Dosing Weight 111.6, kg, Start date: 08/19/18 8:49:00 CDT, Stop date: 08/19/18 8:49:00 CDT Omnipaque 2019-0 No 150 ml, Memor ia 350 3-21 Route: l 13:49: INTRAARTER [place] 00 IAL, Dosing Weight 111.6, kg, ONCE, Start date: 08/19/18 8:49:00 CDT, Stop date: 08/19/18 8:49:00 CDT heparin 2018- No 3,000 Memoria 3-21 unit, l 13:49: Route: IV, ONCE, Dosing Weight 111.6, kg, Start date: 08/19/18 8:49:00 CDT, Stop date: 08/19/18 8:49:00 CDT Midazolam 2018- No 1 mg, Memoria 3-21 Route: IV, l 13:49: ONCE, Dosing Weight 111.6, kg, Start date: 08/19/18 8:49:00 CDT, Stop date: 08/19/18 8:49:00 CDT iodixanol 2018-0 No 100 mL, Memor ia 3-20 Route: l 18:07: IVP, Drug Form: SOLN, Dosing Weight 111.6, kg, ONCALL, STAT, Start date: 08/18/18 13:07:00 CDT, Duration: 1 doses or times, Dose = 2.2ml/kg, Max dose = 100ml -- "To be infused by Radiology Staff ONLY" Imodium A-D No Notes: Kalia aida 3-20 Same as l 17:08: Imodium Ativan No Notes: Memoria 3-20 (Same as: l 14:40: Ativan) Ramipril No Notes: Memoria 3-20 (Same l 14:00: as:Altace) Amlodipine No Notes: Memor ia 3-20 (Same as: l 14:00: Norvasc) heparin No Notes: Memoria 3-20 porcine l 05:00: heparin atorvastati No 40 mg, Kalia aida n 3-20 Route: PO, l 02:00: Drug form: Jorge Alberto 00 TAB, Bedtime, Dosing Weight 111.6, kg, Start date: 08/17/18 21:00:00 CDT, Duration: 30 day, Stop date: 09/15/18 21:00:00 CDT Crestor No Notes: Memoria 3-20 (Same As: l 02:00: Crestor) insulin No Notes: Memoria glargine 3-19 Same as: l 22:00: Lantus) Do not hold insulin without contacting prescriber WASTE: F/P - Black; E - Municipal Trash Bin Ramipril No Notes: Memoria 3-19 (Same l 20:30: as:Altace) Amlodipine No Notes: Memor ia 3-19 (Same as: l 20:30: Norvasc) loperamide No Notes: Memor ia 3-19 Same as l 19:48: Imodium Imodium A-D No 2 mg, Memor ia EZ Chews 08-17 Route: l 18:34: CHEW, Dosing Weight 111.6, kg, BID, PRN as needed for loose stool, Start date: 08/17/18 13:34:00 CDT, Duration: 30 day, Stop date: 09/16/18 13:33:00 CDT Plavix No Notes: Memoria 3-19 (Same As: l 17:24: Plavix) benzonatate No Notes: Kalia aida 3-19 (Same As: l 17:18: Tessalon Perles) "Do Not Crush" Insulin No 60 Memoria regular 3-19 units) l 14:05: WASTE: F/P [place] 00 - Black; E - Municipal Trash Bin Stable for 28 days at room temperatur e Expires in days from ____Date 3 ML 0 No 40 unit, Memoria Insulin 3-19 SUB-Q, l Glargine 08:49: Bedtime, # Her restrepo 100 UNT/ML 00 3 mL, 3 Prefilled Refill(s) Syringe [Lantus] Insulin No 60 Memoria regular 3-19 units) l 08:18: WASTE: F/P Jorge Alberto 00 - Black; E - Municipal Trash Bin Stable for 28 days at room temperatur e Expires in days from ____Date Dextrose 2019-0 No 12.5 gm, Memor ia 50% in 319 25 mL, l Water 07:18: Route: [place] (bolus) IV 00 IVP, Drug Form: INJ, Dosing Weight 113.636, kg, PRN, PRN Blood Glucose Results, Start date: 08/17/18 2:18:00 CDT, Duration: 30 day, Stop date: 09/16/18 2:17:00 CDT Glucagon 2018-0 No 1 mg, Memoria 08-17 Route: IM, l 07:18: Drug form: Jorge Alberto 00 PDR/INJ, PRN, Dosing Weight 113.636, kg, PRN Blood Glucose Results, Start date: 08/17/18 2:18:00 CDT, Duration: 30 day, Stop date: 09/16/18 2:17:00 CDT Bisacodyl 2018-0 No Notes: Memori a 08-17 (Same As: l 06:06: Dulcolax, Jorge Alberto 00 [place]-Lax) Labetalol 2018-0 No 20 mg, 4 Kalia aida 3-19 mL, Route: l 04:38: IVP, Drug form: INJ, Q10Min, Dosing Weight 113.636, kg, PRN Hypertensi on, Start date: 08/16/18 23:38:00 CDT, Duration: 30 day, Stop date: 09/15/18 23:37:00 CDT iodixanol 2019-0 No 60 mL, Memori a 08-17 Route: l 01:39: IVP, Drug Form: SOLN, Dosing Weight 113.636, kg, ONCALL, STAT, Start date: 08/16/18 20:39:00 CDT, Duration: 1 doses or times, Dose = 2.2ml/kg, Max dose = 100ml -- "To be infused by Radiology Staff ONLY" atorvastati Yes 40mg QD Take [address] [facility] (LIPITOR) 9-25 by mouth [facility] - 40 MG 11:02: daily. Medical tablet 35 Center insulin Yes 40U Q.5D Inject 40 [facility] glargine 9-25 [facility] - (LANTUS 11:02: subcutaneo [facility] SOLOSTAR) 34 usly 2 Center 100 unit/mL (two) (3 mL) InPn times daily. DULAGLUTIDE Yes Inject [facility] (TRULICITY 9-25 subcutaneo [facility] es - SUBQ) 11:02: usly every Medica l 34 7 days. Center levothyroxi Yes 88ug Take [address] [facility] [address] ne 9-25 mcg by [facility] - (SYNTHROID, 11:02: mouth Medic al LEVOTHROID) 34 Every Center 88 MCG morning on tablet an empty stomach. metFORMIN Yes 500mg Take [address] [facility] (GLUCOPHAGE 9-25 mg by [facility] - ) 500 MG 11:02: mouth 2 Medica l tablet 34 (two) Center times daily with breakfast and dinner. gabapentin Yes 100mg QD Take [address] (NEURONTIN) 9-25 mg by [facility] - 100 MG 11:02: mouth Medical capsule 34 daily. [place] metoprolol Yes 25mg QD Take [address] (TOPROL-XL) 9-12 by mouth Luke s - 25 MG 24 hr 12:24: daily. [facility] 52 Center furosemide Yes 40mg QD Take [address] (LASIX) 40 9-12 by mouth [facility] - MG tablet 12:24: [facility]. [facility] [address] ramipril Yes 5mg QD Take [address] [facility] (ALTACE) 5 9-12 by mouth [facility] - MG capsule 12:24: daily. [address] rOPINIRole 0 Yes 2mg QD Take [address] (REQUIP) 2 9-12 by mouth [facility] - MG tablet 12:24: nightly. [address] amLODIPine 2013-0 Yes 5mg QD Take [address] (NORVASC) 5 9-12 by mouth Luke s - MG tablet 12:24: daily. [address] benzonatate 0 Yes 200mg Take [address] (TESSALON) 9-12 mg by [facility] - 200 MG 12:24: mouth 3 Medical capsule 52 (three) Center times daily as needed for Cough. diphenhydrA 2013- Yes 25mg Take [address] [facility] [address] MINE -12 by mouth [facility] - (BENADRYL 12:24: every 6 Medic al ALLERGY) 25 52 (six) Center mg tablet hours as needed. metoprolol 2010-06 Yes [place] 25 mg, 1 Me moria 25 mg oral 0-25 Angelito tab, PO, l tablet 22:33: Hernán BID, 60 Berto n 53 tab, Substituti on Allowed, TAB metoprolol 2010-06 No [place] 25 mg, 1 Me moria 0-25 Angelito tab, l 14:00: Hernán Route: PO, Gerda nn 00 Drug form: TAB, BID, Start date: 03/25/11 9:00:00, Duration: 30 day, Stop date: 04/23/11 17:00:00 hydrALAZINE 2010-06 No Allen 10 mg, 0.5 Memoria 0-24 Angelito mL, Route: l 23:14: Hernán IV, Drug [place] 00 form: INJ, Q4H, PRN Elevated BP, Start date: 03/24/11 18:14:00, Duration: 30 day, Stop date: 04/23/11 18:13:00, Systolic Blood pressure greater than 160 mmHg magnesium 2010-06 No [place] 2 gm, 50 Mem oria sulfate 0-24 Angelito mL, Route: l 22:59: Hernán IVPB, Drug Gerda form: INJ, ONCE, Total dose = 2 gm, Start date: 03/24/11 17:59:00, Duration: 1 doses or times, Stop date: 03/24/11 17:59:00 NS 1,000 mL 2010-06 No [place] 1,000 mL, Memoria 0-24 Angelito Rate: 100 l 22:56: Hernán ml/hr, Jorge Alberto Infuse over: 10 hr, Route: IV, Total Volume: 1,000, Start date: 03/24/11 17:56:00, Duration: 30 day, Stop date: 04/23/11 17:55:00 Novolin N 2010-06 No [place] 10 unit, Mem oria 0-24 Angelito 0.1 mL, l 14:00: Hernán Route: [place] 00 SUB-Q, Drug form: INJ, BID, Start date: 03/24/11 9:00:00, Duration: 30 day, Stop date: 04/22/11 17:00:00 [place] 2010-06 No [place] 120 mg, 2 Memor ia Thyroid 0-24 Angelito tab, l 13:30: Hernán Route: PO, Gerda nn Drug form: TAB, Before Breakfast, Start date: 03/24/11 8:30:00, Duration: 30 day, Stop date: 04/23/11 7:30:00 potassium 2010-06 No [place] 40 mEq, 2 Me moria chloride 0-24 Angelito tab, l 00:12: Hernán Route: PO, Gerda nn Drug form: ERTAB, ONCE, Start date: 03/23/11 19:12:00, Stop date: 03/23/11 19:12:00 senna 8.6 2010-06 No [place] 8.6 mg, 1 Me moria mg oral 0-23 Angelito tab, l tablet 14:00: Hernán Route: PO, Her restrepo Drug Form: TAB, Daily, Start date: 03/23/11 9:00:00, Duration: 30 day, Stop date: 04/21/11 9:00:00 diphenhydrA 2010-06 No [place] 25 mg, 1 M emoria MINE 0-23 Angelito cap, l 12:37: Hernán Route: PO, Gerda nn Drug form: CAP, Q6H, PRN Itching, Start date: 03/23/11 7:37:00, Duration: 30 day, Stop date: 04/22/11 7:36:00 [place] 2010-06 No [place] 120 mg, Memoria Thyroid 0-23 Angelito 0.5 tab, l 12:30: Hernán Route: PO, Gerda nn Drug form: TAB, Before Breakfast, Start date: 03/23/11 7:30:00, Duration: 30 day, Stop date: 04/21/11 7:30:00 heparin 2010-06 No [place] 5,000 Memoria 0-23 Angelito unit, 1 l 02:00: Hernán mL, Route: Gerda nn 00 SUB-Q, Drug form: INJ, Q12H, Start date: 03/22/11 21:00:00, Duration: 30 day, Stop date: 04/21/11 9:00:00 Crestor 2010-06 No [place] 20 mg, 2 Memor ia 0-23 Angelito tab, l 02:00: Hernán Route: PO, Gerda nn 00 Drug form: TAB, Bedtime, Start date: 03/22/11 21:00:00, Duration: 30 day, Stop date: 04/20/11 21:00:00 Keppra 500 2010-06 No [place] 500 mg, 1 M emoria mg oral 0-23 Angelito tab, l tablet 02:00: Hernán Route: PO, Her restrepo 00 Drug form: TAB, Q12H, Start date: 03/22/11 21:00:00, Duration: 30 day, Stop date: 04/21/11 9:00:00 [place] 5/325 2010-06 No Allen 1 tab, Mem oria oral tablet 0-22 Angelito Route: PO, l 22:33: Hernán Drug Form: Gerda nn 00 TAB, Q4H, PRN Pain, Start date: 03/22/11 17:33:00, Duration: 30 day, Stop date: 04/21/11 17:32:00 1/2NS + KCL 2010-06 No [place] 500 mL, M emoria 20mEq/L 0-22 Begum Rate: 50 l 1000ml 22:00: Gopathi ml/hr, Berto n (Premix) 00 Infuse 500 mL over: 10 hr, Route: IV, Total Volume: 500, Start date: 03/22/11 17:00:00, Duration: 30 day, Stop date: 04/21/11 16:59:00 magnesium 2010-06 No Allen 400 mg, 1 Me moria oxide 0-22 Angelito tab, l 22:00: Hernán Route: PO, Gerda nn 00 Drug form: TAB, BID, Start date: 03/22/11 17:00:00, Duration: 30 day, Stop date: 04/21/11 9:00:00 metoprolol 2010-06 No Allen 12.5 mg, 1 Memoria 0-22 Angelito ea, Route: l 22:00: Hernán PO, Drug [place] 00 form: TAB, BID, Start date: 03/22/11 17:00:00, Duration: 30 day, Stop date: 04/21/11 9:00:00 docusate 2010-06 No Allen 100 mg, 1 Mem oria sodium 100 0-22 Angelito cap, l mg oral 22:00: Hernán Route: PO, He rmann capsule 00 Drug form: CAP, BID, Start date: 03/22/11 17:00:00, Duration: 30 day, Stop date: 04/21/11 9:00:00 1/2NS 1,000 2010-06 No Allen 1,000 mL, Memoria mL 0-22 Angelito Rate: 50 l 21:57: Hernán ml/hr, [place] 00 Infuse over: 20 hr, Route: IV, Total Volume: 1,000, Start date: 03/22/11 16:57:00, Duration: 30 day, Stop date: 04/21/11 16:56:00 insulin 2010-06 No Allen 3 unit, Memori a aspart 0-22 Angelito 0.03 mL, l 21:28: Hernán Route: [place] 00 SUB-Q, Drug form: SOLN, TID-Before Meals, PRN Blood Glucose Results, Start date: 03/22/11 16:28:00, Duration: 30 day, Stop date: 04/21/11 16:27:00 Dextrose 2010-06 No Allen 25 gm, 50 Mem oria 50% Syringe 0-22 Angelito mL, Route: l 21:28: Hernán IVP, Drug Berto n 00 Form: INJ, PRN, PRN Blood Glucose Results, Start date: 03/22/11 16:28:00, Duration: 30 day, Stop date: 04/21/11 15:27:00 glucagon 2010-06 No Allen 1 mg, Memoria 0-22 Angelito Route: IM, l 21:28: Henrán Drug form: Gerda nn 00 PDR/INJ, PRN, PRN Blood Glucose Results, Priority: STAT, Start date: 03/22/11 16:28:00, Duration: 30 day, Stop date: 04/21/11 15:27:00 calcium 2010-06 No Allen 500 mg, 1 Kalia aida carbonate 0-22 Angelito tab, l 21:19: Hernán Route: PO, Gerda nn 00 Drug form: CHEWTAB, TID, PRN as needed for indigestio n, Start date: 03/22/11 16:19:00, Duration: 30 day, Stop date: 04/21/11 16:18:00 ondansetron 2010-06 No Martha 4 mg, 2 Memoria 0-22 Dumont mL, Route: l 15:12: IVP, Drug form: INJ, ONCE, Priority: STAT, Start date: 03/22/11 10:12:00, Stop date: 03/22/11 10:12:00 morphine 2010-06 No Martha 4 mg, 1 Me moria Sulfate 0-22 Dumont mL, Route: l 15:11: IVP, Drug form: INJ, ONCE, Priority: STAT, Start date: 03/22/11 10:11:00, Stop date: 03/22/11 10:11:00 Crestor 20 Crestor 20 2010-06 Yes 1 QD TAKE 1 [facility] MG Oral MG Oral 0-21 TABLET ity of Tablet Tablet 00:00: DAILY [place] 00 Physici ans HumuLIN N HumuLIN N 2010-06 Yes INJECT U nivers 100 UNIT/ML 100 UNIT/ML 0-21 8-10 UNIT ity of Subcutaneou Subcutaneou 00:00: TWICE [place] s s 00 DAILY Physici Suspension Suspension depending ans on BG levels Calcium Calcium 2010-06 Yes 3 times a Un komal Carbonate Carbonate 0-21 day as ity of Antacid 500 Antacid 500 00:00: needed for [place] MG Oral MG Oral 00 indigestio Phy sici Tablet Tablet n ans Chewable Chewable magnesium 2010-06 Yes Blanco 400 mg, 1 Me moria oxide 400 0-15 Prince tab, PO, l mg oral 17:10: Korimilli BID, 4 Her restrepo tablet 20 tab, Substituti on Allowed Benadryl 2010-06 No Breanna 25 mg, 1 M emoria 0-15 Mercy Neymar cap, l 11:21: Route: PO, Drug form: CAP, Q4H, PRN Itching, Start date: 03/15/11 6:21:00, Duration: 30 day, Stop date: 04/14/11 6:20:00 trazodone 2010-06 No Blanco 50 mg, 1 Mem oria 50 mg oral 0-15 Prince tab, l tablet 02:00: Korimilli Route: PO, Drug form: TAB, Bedtime, Start date: 03/14/11 21:00:00, Duration: 30 day, Stop date: 04/12/11 21:00:00 NS 1,000 mL 2010-06 No Mujahed M 1,000 mL, Memoria 0-14 Alikhan Rate: 75 l 22:02: ml/hr, [place] Infuse over: 13.3 hr, Route: IV, Total Volume: 1,000, Start date: 03/14/11 17:02:00, Duration: 30 day, Stop date: 04/13/11 17:01:00 senna 8.6 2010-06 No Blanco 8.6 mg, 1 Me moria mg oral 0-14 Prince tab, l tablet 14:00: Korimilli Route: PO, [place] 00 Drug Form: TAB, Daily, Start date: 03/14/11 9:00:00, Duration: 30 day, Stop date: 04/12/11 9:00:00 metoprolol 2010-06 No Darcy 12.5 mg, 1 Memoria 0-14 Jeane ea, Route: l 14:00: Ash PO, Drug Gerda nn form: TAB, BID, Start date: 03/14/11 9:00:00, Duration: 30 day, Stop date: 04/12/11 17:00:00 Crestor 2010-06 No Darcy 20 mg, 2 Memoria 0-14 Jeane tab, l 14:00: [place] Route: PO, Her restrepo 00 Drug form: TAB, Daily, Start date: 03/14/11 9:00:00, Duration: 30 day, Stop date: 04/12/11 9:00:00 Keppra 500 2010-06 No Darcy 500 mg, 1 Memoria mg oral 0-14 Jaene tab, l tablet 14:00: Ash Route: PO, H ermann 00 Drug form: TAB, Q12H, Start date: 03/14/11 9:00:00, Duration: 30 day, Stop date: 04/12/11 21:00:00 Novolin N 2010-06 No Darcy 10 unit, Memoria 0-14 Jeane 0.1 mL, l 14:00: Ash Route: [place] 00 SUB-Q, Drug form: INJ, BID, Start date: 03/14/11 9:00:00, Duration: 30 day, Stop date: 04/12/11 17:00:00 docusate 2010-06 No Darcy 100 mg, 1 Memoria sodium 100 0-14 Jeane cap, l mg oral 14:00: Ash Route: PO, [place] capsule 00 Drug form: CAP, BID, Start date: 03/14/11 9:00:00, Duration: 30 day, Stop date: 04/12/11 17:00:00 calcium 2010-06 No Darcy 500 mg, 1 Memoria carbonate 0-14 Jeane tab, l 14:00: Ash Route: PO, Her restrepo 00 Drug form: CHEWTAB, TID, Start date: 03/14/11 9:00:00, Duration: 30 day, Stop date: 04/12/11 17:00:00 heparin 2010-06 No Darcy 5,000 Mem oria 0-14 Jeane unit, 1 l 13:00: Ash mL, Route: Her restrepo 00 SUB-Q, Drug form: INJ, Q8H, Start date: 03/14/11 8:00:00, Duration: 30 day, Stop date: 04/13/11 0:00:00 ciprofloxac 2010-06 No Darcy 750 mg, 3 Memoria in 0-14 Jeane tab, l 12:00: [place] Route: PO, Her restrepo 00 Drug form: TAB, [id number], Start date: 03/14/11 7:00:00, Duration: 30 day, Stop date: 04/12/11 19:00:00 cefepime 2010-06 No Darcy 2 gm, Me moria 0-14 Jeane Route: IV, l 12:00: [place] Drug form: Her restrepo 00 INJ, ABXQ8H, Start date: 03/14/11 7:00:00, Duration: 30 day, Stop date: 04/12/11 23:00:00 [place] 2010-06 No Darcy 120 mg, 2 Memoria Thyroid 0-14 Jeane tab, l 11:45: [place] Route: PO, Her restrepo 00 Drug form: TAB, [id number], Start date: 03/14/11 6:45:00, Duration: 30 day, Stop date: 04/13/11 6:30:00 glucagon 2010-06 No Darcy 1 mg, Me moria 0-14 Jeane Route: IM, l 11:06: Ash Drug form: Her restrepo 00 PDR/INJ, PRN, PRN Blood Glucose Results, Priority: STAT, Start date: 03/14/11 6:06:00, Duration: 30 day, Stop date: 04/13/11 5:05:00 Dextrose 2010-06 No Darcy 25 gm, 50 Memoria 50% Syringe 0-14 Jeane mL, Route: l 11:06: [place] IVP, Drug Herm mercy 00 Form: INJ, PRN, PRN Blood Glucose Results, Start date: 03/14/11 6:06:00, Duration: 30 day, Stop date: 04/13/11 5:05:00 insulin 2010-06 No Darcy 4 unit, M emoria aspart 0-14 Jeane 0.04 mL, l 11:06: Ash Route: Jorge Alberto 00 SUB-Q, Drug form: SOLN, TID-Before Meals, PRN Blood Glucose Results, Start date: 03/14/11 6:06:00, Duration: 30 day, Stop date: 04/13/11 6:05:00 [place] 5/325 2010-06 No Darcy 1 tab, Memoria oral tablet 0-14 Jeane Route: PO, l 11:02: [place] Drug Form: Her restrepo 00 TAB, Q4H, PRN as needed for pain, Start date: 03/14/11 6:02:00, Duration: 30 day, Stop date: 04/13/11 6:01:00 magnesium 2010-06 No Darcy 2 gm, 50 Memoria sulfate 0-14 Jeane mL, Route: l 11:01: Ash IVPB, Drug Her restrepo 00 form: INJ, ONCE, Total dose = 2 gm, Start date: 03/14/11 6:01:00, Duration: 1 doses or times, Stop date: 03/14/11 6:01:00 Sodium 2010-06 No Natana 1,000 mL, Kalia aida Chloride 0-14 Farmer Rate: l 0.9% 09:12: Burden 1,000 Jorge Alberto (Bolus) IV 00 ml/hr, 1,000 mL Infuse over: 1 hr, Route: IV, Total Volume: 1,000, Bolus Dose, Priority: STAT, Start date: 03/14/11 4:12:00, Duration: 1 doses or times, Stop date: 03/14/11 5:11:00 Maxipime 2010-06 No Natana 2 gm, Memori a 0-14 Farmer Route: l 04:52: [place] IVPB, Drug Berto n 00 form: INJ, ONCE, Start date: 03/13/11 23:52:00, Stop date: 03/13/11 23:52:00 Cipro 2010-06 No Natana 750 mg, 3 Memor ia 0-14 Farmer tab, l 04:51: [place] Route: PO, Berto n 00 Drug form: TAB, ONCE, Start date: 03/13/11 23:51:00, Stop date: 03/13/11 23:51:00 Sodium 2010-06 No Natana 1,000 mL, Kalia aida Chloride 0-14 Farmer Rate: l 0.9% 04:20: [place]den 1,000 [place] (Bolus) IV 00 ml/hr, 1,000 mL Infuse over: 1 hr, Route: IV, Total Volume: 1,000, Bolus Dose, Priority: STAT, Start date: 03/13/11 23:20:00, Duration: 1 doses or times, Stop date: 03/14/11 0:19:00 morphine 2010-06 No Julio 4 mg, 1 Kalia aida Sulfate 0-14 Ronn mL, Route: l 03:47: Daft[place] IVP, Drug Gerda nn 00 form: INJ, ONCE, Priority: STAT, Start date: 03/13/11 22:47:00, Stop date: 03/13/11 22:47:00 Lasix 2010-06 No Substituti Memori a 0-14 on Allowed l 03:35: Jorge Alberto 07 metFORmin 2010-06 No Substituti Me moria 0-14 on Allowed l 03:35: Jorge Alberto 03 metoprolol 2010-06 No Val 12.5 mg, 1 Memoria 0-07 Caitie ea, Route: l 01:00: Aaron PO, Drug Jorge Alberto 00 form: TAB, BID, Start date: 03/06/11 20:00:00, Duration: 30 day, Stop date: 04/05/11 8:00:00 metoprolol 2010-06 Yes McCasey R 12.5 mg, Memoria 25 mg oral 0-06 Rizvi 0.5 ea, l tablet 20:26: PO, BID, [place] 19 60 tab, Substituti on Allowed, TAB trazodone 2010-06 Yes McCasey R 50 mg, 1 Memoria 50 mg oral 0-06 Rizvi tab, PO, l tablet 20:24: Bedtime, Jorge Alberto 01 40 tab, Substituti on Allowed, TAB [place] 5/325 2010-06 Yes McCasey R 1 tab, PO, Memoria oral tablet 0-06 Rizvi Q4H, PRN, l 20:23: 40 tab, Jorge Alberto 43 Pain, Substituti on Allowed, Maintenanc e, TAB Novolin N 2010-06 Yes McCasey R 10 unit, Memoria 100 0-06 Rizvi SUB-Q, l units/mL 20:23: BID, 10 Berto n subcutaneou 30 ml, s injection Substituti on Allowed, SUSP [place] 2010-06 Yes McCasey R 120 mg, 2 M emoria Thyroid 60 0-06 Rizvi tab, PO, l mg oral 20:23: Before Jorge Alberto tablet 07 Breakfast, 60 tab, Substituti on Allowed, TAB Keppra 500 2010-06 Yes McCasey R 500 mg, 1 Memoria mg oral 0-06 Rizvi tab, PO, l tablet 20:22: Q12H, 60 [place] 39 tab, Substituti on Allowed, TAB Crestor 20 2010-06 Yes McCasey R 20 mg, 1 Memoria mg oral 0-06 Rizvi tab, PO, l tablet 20:22: Daily, 30 Berto n 26 tab, Substituti on Allowed, TAB senna 8.6 2010-06 Yes McCasey R 8.6 mg, 1 Memoria mg oral 0-06 Rizvi tab, PO, l tablet 20:22: Daily, 30 Berto n 09 tab, Substituti on Allowed, Maintenanc e, TAB docusate 2010-06 Yes McCasey R 100 mg, 1 Memoria sodium 100 0-06 Rizvi cap, PO, l mg oral 20:21: BID, 30 [place] capsule 19 cap, Substituti on Allowed, CAP ciprofloxac 2010-06 Yes McCasey R 750 mg, 3 Memoria in 250 mg 0-06 Rizvi tab, PO, l oral tablet 20:20: Q12H, 40 He rmann 50 doses or times, Substituti on Allowed, TAB Maxipime 2 2010-06 Yes McCasey R 2 gm, IV, Memoria g injection 0-06 Rizvi Q8H, 60 l 20:19: doses or Jorge Alberto 42 times, Substituti on Allowed calcium 2010-06 Yes McCasey R 500 mg, 1 Memoria carbonate 0-06 Rizvi tab, PO, l 500 mg oral 20:19: TID, PRN, H ermann tablet, 13 30 tab, as chewable needed for indigestio n, Substituti on Allowed, CHEWTAB Lasix 2010-06 No Val 10 mg, 0.5 Kalia aida 0-06 Caitie tab, l 13:00: Aaron Route: PO, Gerda nn Drug form: TAB, Daily, Start date: 03/06/11 8:00:00, Duration: 30 day, Stop date: 04/04/11 8:00:00 Norvasc 2010-06 No Chaitanya A 5 mg, Memor ia Crowe Route: PO, l 13:00: Daily, Jorge Alberto 00 Start date: 03/02/11 8:00:00, Duration: 30 day, Stop date: 03/31/11 8:00:00 trazodone No Bonnie Jyotsna 50 mg, 1 Memoria 50 mg oral 02-28 Zeider tab, l tablet 02:00: Route: PO, Gerda nn Drug form: TAB, Bedtime, Start date: 02/27/11 21:00:00, Duration: 30 day, Stop date: 03/28/11 21:00:00 calcium No Bonnie Jyotsna 500 mg, 1 Memoria carbonate 02-27 Zeider tab, l 13:00: Route: PO, Jorge Alberto 00 Drug form: TAB, TID, Start date: 02/27/11 8:00:00, Duration: 7 day, Stop date: 03/05/11 17:00:00 senna No Bonnie Jyotsna 8.6 mg, 1 M emoria 02-27 Zeider tab, l 13:00: Route: PO, [place] Drug Form: TAB, Daily, Start date: 02/27/11 8:00:00, Duration: 30 day, Stop date: 03/28/11 8:00:00 Lasix 40 mg No McCasey R 20 mg, 0.5 Memoria oral tablet 02-27 Rizvi tab, l 13:00: Route: PO, [place] 00 Drug form: TAB, Daily, Start date: 02/27/11 8:00:00, Stop date: 03/28/11 8:00:00 [place] No Bonnie Jyotsna 120 mg, 2 Memoria Thyroid 02-27 Zeider tab, l 11:30: Route: PO, Jorge Alberto Drug form: TAB, Before Breakfast, Start date: 02/27/11 6:30:00, Duration: 30 day, Stop date: 03/28/11 6:30:00 Insulin No Chaitanya A 5 unit, Mem oria regular 02-27 Crowe 0.05 mL, l 11:30: Route: Jorge Alberto SUB-Q, Drug form: SOLN, TID-Before Meals, Start date: 02/27/11 6:30:00, Stop date: 03/28/11 16:30:00 heparin No Bonnie Jyotsna 5,000 Mem oria 5000 02-27 Zeider unit, 1 l units/mL 05:00: mL, Route: Her restrepo injectable 00 SUB-Q, solution Drug form: INJ, Q8H, Start date: 02/27/11 0:00:00, Duration: 30 day, Stop date: 03/28/11 16:00:00 hydrALAZINE No Chaitanya A 25 mg, 1 Memoria 25 mg oral 02-27 Crowe tab, l tablet 05:00: Route: PO, Gerda nn Drug form: TAB, Q8H, Start date: 02/27/11 0:00:00, Duration: 30 day, Stop date: 03/28/11 16:00:00 ciprofloxac No Bonnie Jyotsna 750 mg, 3 Memoria in 02-27 Zeider tab, l 04:00: Route: PO, [place] Drug form: TAB, Q12H, Priority: Routine, Start date: 02/26/11 23:00:00, Duration: 30 day, Stop date: 03/28/11 11:00:00 Crestor No Bonnie Jyotsna 20 mg, 2 Memoria 02-27 Zeider tab, l 02:00: Route: PO, [place] 00 Drug form: TAB, Daily, Start date: 02/26/11 21:00:00, Duration: 30 day, Stop date: 03/27/11 21:00:00 levetiracet No Bonnie Jyotsna 500 mg, 1 Memoria am 02-27 Zeider tab, l 02:00: Route: PO, Jorge Alberto Drug form: TAB, Q12H, Start date: 02/26/11 21:00:00, Duration: 30 day, Stop date: 03/28/11 9:00:00 magnesium No Bonnie Jyotsna 400 mg, 1 Memoria oxide 02-27 Zeider tab, l 01:00: Route: PO, Jorge Alberto Drug form: TAB, BID, Start date: 02/26/11 20:00:00, Duration: 5 day, Stop date: 03/03/11 8:00:00 insulin No Bonnie Jyotsna 10 unit, Memoria 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 02-27 Zeider 0.1 mL, l H 01:00: Route: Jorge Alberto 00 SUB-Q, Drug form: INJ, BID, Start date: 02/26/11 20:00:00, Duration: 30 day, Stop date: 03/28/11 8:00:00 docusate No Bonnie Jyotsna 100 mg, 1 Memoria sodium 100 02-27 Zeider cap, l mg oral 01:00: Route: PO, Herm mercy capsule 00 Drug form: CAP, BID, Start date: 02/26/11 20:00:00, Duration: 30 day, Stop date: 03/28/11 8:00:00 Prinivil No Chaitanya A 20 mg, 1 M emoria 02-27 Crowe tab, l 01:00: Route: PO, [place] 00 Drug form: TAB, BID, Start date: 02/26/11 20:00:00, Stop date: 03/28/11 8:00:00 cefepime No Bonnie Jyotsna 2 gm, Me moria 02-26 Zeider Route: l 23:00: IVPB, Drug form: INJ, ABXQ8H, Start date: 02/26/11 18:00:00, Duration: 30 day, Stop date: 03/28/11 10:00:00 ondansetron No Bonnie Jyotsna 4 mg, 2 Memoria 02-26 Zeider mL, Route: l 22:39: IVP, Drug form: INJ, ONCE, PRN Nausea & Vomiting, Start date: 02/26/11 17:39:00 Saline No Bonnie Jyotsna 5 ml, Kalia aida Flush 0.9% 02-26 Ze Route: l 22:39: IVP, Drug Form: INJ, PRN, PRN Line Flush, Start date: 02/26/11 17:39:00, Duration: 30 day, Stop date: 03/28/11 17:38:00 calcium No Bonnie Jyotsna 500 mg, 1 Memoria carbonate 02-26 Zeider tab, l 22:39: Route: CHEW, Drug form: CHEWTAB, TID, PRN Indigestio n, Start date: 02/26/11 17:39:00, Duration: 30 day, Stop date: 03/28/11 17:38:00 [place] 5/325 No Bonnie Jyotsna 1 tab, Memoria oral tablet 02-26 Ze Route: PO, l 22:39: Drug Form: Jorge Alberto 00 TAB, Q4H, PRN Pain, Start date: 02/26/11 17:39:00, Duration: 30 day, Stop date: 03/28/11 17:38:00 acetaminoph No Bonnie Jyotsna 650 mg, Memoria en 02-26 Zeider 20.3 mL, l 22:39: Route: PO, Drug form: LIQ, Q4H, PRN Fever, Start date: 02/26/11 17:39:00, Duration: 30 day, Stop date: 03/28/11 17:38:00 [place] No Bonnie Jyotsna 1 tab, Kalia aida 7.5/325 02-26 Zeider Route: PO, l oral tablet 22:39: Drug Form: [place] 00 TAB, Q4H, PRN Pain, Start date: 02/26/11 17:39:00, Duration: 30 day, Stop date: 03/28/11 17:38:00 Insulin No Bonnie Goyal 2 unit, Natasha de la fuente regular 02-26 Zeider 0.02 mL, l 22:39: Route: Jorge Alberto 00 SUB-Q, Drug form: SOLN, TID-Before Meals, PRN Blood Glucose Results, Start date: 02/26/11 17:39:00, Duration: 30 day, Stop date: 03/28/11 17:38:00 [place] Yes Katie L 120 mg, 2 M emoria Thyroid 60 - Christianson tab, PO, l mg oral 18:40: Before [place] tablet 33 Breakfast, 30 tab, Substituti on Allowed, TAB senna 8.6 Yes Katie L 8.6 mg, 1 Memoria mg oral 02-26 Christianson tab, PO, l tablet 18:40: Daily, 30 Berto n 28 tab, Substituti on Allowed, Maintenanc e, TAB Crestor 10 Yes Katie L 20 mg, 2 Memoria mg oral 02-26 Christianson tab, PO, l tablet 18:40: Daily, 30 Berto n 23 tab, Substituti on Allowed, TAB Prinivil 10 Yes Katie L 10 mg, 1 Memoria mg oral 02-26 Christianson tab, PO, l tablet 18:40: BID, 30 [place] 14 tab, Substituti on Allowed, TAB levetiracet Yes Katie L 500 mg, 1 Memoria am 500 mg 02-26 Christianson tab, PO, l oral tablet 18:40: Q12H, 30 He rmann 10 tab, Substituti on Allowed, TAB hydrALAZINE Yes Katie L 25 mg, 1 Memoria 25 mg oral 02-26 Christianson tab, PO, l tablet 18:40: Q8H, 30 Jorge Alberto 03 tab, Substituti on Allowed, TAB heparin Yes Katie L 5000 Memor ia 5000 02-26 Christianson units, l units/mL 18:39: SUB-Q, Jorge Alberto injectable 57 Q8H, 30 solution doses or times, Substituti on Allowed, SOLN Lasix 40 mg Yes Katie L 40 mg, 1 Memoria oral tablet 02-26 Christianson tab, PO, l 18:39: Daily, 30 [place] 49 tab, Substituti on Allowed, TAB docusate Yes Katie L 100 mg, 1 Memoria sodium 100 02-26 Christianson cap, PO, l mg oral 18:39: BID, 30 [place] capsule 39 cap, Substituti on Allowed, CAP ciprofloxac Yes Katie L 750 mg, 3 Memoria in 250 mg 02-26 Christianson tab, PO, l oral tablet 18:39: Q12H, 30 He rmann 31 doses or times, Substituti on Allowed, TAB Maxipime 2 Yes Katie L 2 gm, IV, Memoria g injection 02-26 Christianson Q8H, 1 l 18:39: doses or Jorge Alberto 16 times, Substituti on Allowed calcium Yes Katie L 500 mg, 1 Memoria carbonate 02-26 Christianson tab, PO, l 500 mg oral 18:39: TID, 30 Her restrepo tablet, 09 tab, chewable Substituti on Allowed, CHEWTAB [place] Enema No Skyler 133 ml, Memoria 02-24 Dean Route: DC, l 19:38: Joel Drug Form: Herm mercy 00 JEANNIE, ONCE, Start date: 02/24/11 14:38:00, Stop date: 02/24/11 14:38:00 bisacodyl No Ksyler 10 mg, 1 M emoria 02-24 Dean supp, l 19:38: Joel Route: DC, Herm mercy 00 Drug form: SUPP, ONCE, Start date: 02/24/11 14:38:00, Stop date: 02/24/11 14:38:00 magnesium No Magnolia 300 ml, Mem oria citrate 02-24 Manuel Route: PO, l 18:03: Aicha Drug Form: Herm mercy 00 LIQ, ONCE, Start date: 02/24/11 13:03:00, Stop date: 02/24/11 13:03:00 calcium No Val 500 mg, 1 Mem oria carbonate 02-24e tab, l 18:00: Aaron Route: PO, Gerda nn Drug form: TAB, TID, Start date: 02/24/11 13:00:00, Duration: 7 day, Stop date: 03/03/11 9:00:00 lisinopril No Val 10 mg, 1 M emoria 02-24e tab, l 16:02: Aaron Route: PO, Gerda nn Drug form: TAB, ONCE, Priority: NOW, Start date: 02/24/11 11:02:00, Stop date: 02/24/11 11:02:00 lisinopril No Val 10 mg, Mem oria 02-24 Route: PO, l 16:01: Aaron ONCE, Jorge Alberto 00 Start date: 02/24/11 11:01:00, Stop date: 02/24/11 11:01:00 Insulin No Val 3 unit, Memor ia regular 02-23e 0.03 mL, l 21:30: Aaron Route: Jorge Alberto 00 SUB-Q, Drug form: SOLN, TID-Before Meals, Start date: 02/23/11 16:30:00, Duration: 30 day, Stop date: 03/25/11 11:30:00 ciprofloxac No Val 750 mg, 3 Memoria in 02-23e tab, l 18:00: Aaron Route: PO, Gerda nn Drug form: TAB, Q12H, Priority: Routine, Start date: 02/23/11 13:00:00, Duration: 30 day, Stop date: 03/25/11 11:00:00 insulin No Val 10 unit, Kalia aida 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 02-21e 0.1 mL, l H 22:00: Aaron Route: Jorge Alberto 00 SUB-Q, Drug form: INJ, BID, Start date: 02/21/11 17:00:00, Stop date: 03/23/11 9:00:00 magnesium No Val 400 mg, 1 M emoria oxide 02-21 tab, l 22:00: Aaron Route: PO, Gerda nn 00 Drug form: TAB, BID, Start date: 02/21/11 17:00:00, Duration: 5 day, Stop date: 02/26/11 9:00:00 calcium No Val 500 mg, 1 Mem oria carbonate 02-21 Caitie tab, l 19:26: Aaron Route: [place] CHEW, Drug form: CHEWTAB, TID, PRN Indigestio n, Start date: 02/21/11 14:26:00, Duration: 30 day, Stop date: 03/23/11 14:25:00 cefepime No Katie L 2 gm, Mem oria 02-20 Christianson Route: l 23:00: IVPB, Drug form: INJ, ABXQ8H, Start date: 02/20/11 18:00:00, Stop date: 03/22/11 10:00:00 Lasix 40 mg No Val 40 mg, 1 Memoria oral tablet 02-20e tab, l 22:00: Aaron Route: PO, Gerda nn Drug form: TAB, Daily, Start date: 02/20/11 17:00:00, Stop date: 03/22/11 9:00:00 heparin No Claudy 5,000 Memoria 5000 02-20 Salazar unit, 1 l units/mL 21:00: mL, Route: Her restrepo injectable 00 SUB-Q, solution Drug form: INJ, Q8H, Start date: 02/20/11 16:00:00, Duration: 30 day, Stop date: 03/22/11 8:00:00 [place] No Claudy 1 tab, Memoria 7.5/325 02-20 Salazar Route: PO, l oral tablet 16:07: Drug Form: Jorge Alberto TAB, Q4H, PRN Pain, Start date: 02/20/11 11:07:00, Duration: 30 day, Stop date: 03/22/11 11:06:00 Crestor No Albaro 20 mg, 2 Kalia aida 02-20 Demarco tab, l 14:00: White Route: PO, Berto n 00 Drug form: TAB, Daily, Start date: 02/20/11 9:00:00, Duration: 30 day, Stop date: 03/21/11 9:00:00 senna 2010- No Albaro 8.6 mg, 1 Memor ia 02-20 Dav tab, l 14:00: Christopher Route: PO, Berto n 00 Drug Form: TAB, Daily, Start date: 02/20/11 9:00:00, Duration: 30 day, Stop date: 03/21/11 9:00:00 [place] 2010- No Albaro 120 mg, 2 Kalia aida Thyroid 02-20 Demarco tab, l 12:30: Christopher Route: PO, Berto n 00 Drug form: TAB, Before Breakfast, Start date: 02/20/11 7:30:00, Duration: 30 day, Stop date: 03/21/11 7:30:00 vancomycin No Katie L 1 gm, M emoria 02-20 Christianson Route: l 11:44: IVPB, Drug form: INJ, ABXQ8H, Priority: NOW, Start date: 02/20/11 6:44:00, Duration: 30 day, Stop date: 03/21/11 22:44:00 magnesium No Ramos L 2 gm, 50 Memoria sulfate 02-20 Day mL, Route: l 10:00: IVPB, Drug form: INJ, Q2H, Start date: 02/20/11 5:00:00, Duration: 2 doses or times, Stop date: 02/20/11 7:00:00 potassium 2010- No Ramos L 20 mEq, M emoria chloride 02-20 Day 100 mL, l 09:00: Route: [place] 00 IVPB, Q2H, Start date: 02/20/11 4:00:00, Duration: 2 doses or times, Stop date: 02/20/11 6:00:00 magnesium 0 No Ramos L 4 gm, 100 Memoria sulfate 02-20 Day mL, Route: l 09:00: IVPB, Drug form: INJ, ONCE, Start date: 02/20/11 4:00:00, Stop date: 02/20/11 4:00:00 labetalol No Ambili M 5 mg, 1 M emoria 02-20 Kasi mL, Route: l 06:56: IV, Drug [place] 00 form: INJ, Q10Min, PRN Hypertensi on, Start date: 02/20/11 1:56:00, Duration: 30 day, Stop date: 03/22/11 1:55:00 NS 500 mL No Ambili M 500 mL, M emoria 02-20 Kasi Rate: l 03:07: 1,000 ml/hr, Infuse over: 0.5 hr, Route: IV, Total Volume: 500, Start date: 02/19/11 22:07:00, Duration: 1 doses or times, Stop date: 02/19/11 22:36:00, Bolus DoseBolus Dose calcium No Ambili M 1,000 mg, M emoria chloride 02-20 Kasi 10 mL, l 02:18: Route: IV, Drug form: INJ, ONCE, Start date: 02/19/11 21:18:00, Stop date: 02/19/11 21:18:00 Tylenol No Claudy 650 mg, 2 Kalia aida 02-20 Salazar tab, l 02:13: Route: PO, Drug form: TAB, Q4H, PRN Fever, Start date: 02/19/11 21:13:00, Duration: 30 day, Stop date: 03/21/11 21:12:00 levetiracet No Albaro 500 mg, 1 Memoria am 02-20 Demarco tab, l 02:00: Christopher Route: PO, Berto n Drug form: TAB, Q12H, Start date: 02/19/11 21:00:00, Duration: 30 day, Stop date: 03/21/11 9:00:00 acetaminoph No Ambili M 650 mg, Memoria en 02-20 Kasi 20.3 mL, l 01:04: Route: PO, Drug form: LIQ, Q4H, PRN Fever, Start date: 02/19/11 20:04:00, Duration: 30 day, Stop date: 03/21/11 20:03:00 Prinivil No Val 10 mg, 1 Mem oria 02-19 Caitie tab, l 22:00: Aaron Route: PO, Gerda nn Drug form: TAB, BID, Start date: 02/19/11 17:00:00, Duration: 30 day, Stop date: 03/20/11 17:00:00 hydrALAZINE No Val 25 mg, 1 Memoria 25 mg oral 02-19 Caitie tab, l tablet 22:00: Aaron Route: PO, Her restrepo 00 Drug form: TAB, Q8H, Start date: 02/19/11 17:00:00, Stop date: 03/21/11 8:00:00 docusate No Albaro 100 mg, 1 Me moria sodium 100 02-19 Dav cap, l mg oral 22:00: Christopher Route: PO, Her restrepo capsule 00 Drug form: CAP, BID, Start date: 02/19/11 17:00:00, Duration: 30 day, Stop date: 03/21/11 9:00:00 [place] 5/325 No Albaro 1 tab, Me moria oral tablet 02-19 Dav Route: PO, l 21:14: Christopher Drug Form: Berto n 00 TAB, Q4H, PRN Pain, Start date: 02/19/11 16:14:00, Duration: 30 day, Stop date: 03/21/11 16:13:00 ciprofloxac No Laure Thi 400 mg, Memoria in 02-19 Sahu 200 mL, l 21:10: Route: [place] 00 IVPB, Drug form: INJ, [id number], Priority: NOW, Start date: 02/19/11 16:10:00, Duration: 30 day, Stop date: 03/21/11 4:10:00 vancomycin No Sky 2 gm, Kalia aida 02-19 Ollie Rizvi Route: l 21:02: IVPB, Jorge Alberto 00 ONCE, Priority: STAT, Start date: 02/19/11 16:02:00, Stop date: 02/19/11 16:02:00 Insulin No Albaro 100 mL, Memor ia regular 100 02-19 Dav Rate: l unit + 20:56: Christopher Start at B[place] n Sodium 00 0.05 Chloride units/kg/h 0.9% our-, (titrate) Route: 100 mL IVPB, Total Volume: 100, Duration: 30 day, Stop date: 03/21/11 15:56:00, Replace Every: 24 hr Sodium No Miles D 1,000 mL, Mem oria Chloride 02-19 Christian Rate: 75 l 0.9% IV 20:56: ml/hr, Jorge Alberto 1,000 mL 00 Infuse over: 13.3 hr, Route: IV, Total Volume: 1,000, Start date: 02/19/11 15:56:00, Stop date: 03/21/11 15:55:00 insulin No Albaro 7 unit, Memor ia regular 02-19 Demarco 0.07 mL, l human 20:51: Christopher Route: [place] recombinant 00 SUB-Q, 100 Drug form: units/mL SOLN, PRN, injectable PRN solution Abnormal Lab Result, Start date: 02/19/11 15:51:00, Duration: 30 day, Stop date: 03/21/11 15:50:00 Dextrose No Albaro 6.25 gm, Mem oria 50% Syringe 02-19 Demarco 12.5 mL, l 20:51: Christopher Route: Jorge Alberto 00 IVP, Drug Form: INJ, PRN, PRN Abnormal Lab Result, Start date: 02/19/11 15:51:00, Duration: 30 day, Stop date: 03/21/11 15:50:00 Saline No Albaro 5 ml, Memoria Flush 0.9% 02-19 Demarco Route: l 20:51: Christopher IVP, Drug [place] Form: INJ, PRN, PRN Line Flush, Start date: 02/19/11 15:51:00, Duration: 30 day, Stop date: 03/21/11 15:50:00 morphine No Albaor 2 mg, 1 Kalia aida Sulfate 02-19 Demarco mL, Route: l 20:51: Christopher IVP, Drug [place] 00 form: INJ, Q1H, PRN Pain Score 7-10, Start date: 02/19/11 15:51:00, Duration: 30 day, Stop date: 03/21/11 15:50:00 flumazenil No Boone 0.2 mg, 2 Memoria 02-19 r J Carlos mL, Route: l 19:18: Virgil IVP, Drug [place] 00 form: INJ, PRN, PRN Other -See Comment, Initial dose, Start date: 02/19/11 14:18:00, Duration: 30 day, Stop date: 03/21/11 14:17:00 naloxone No Boone 0.04 mg, Memoria 02-19 r J Carlos 0.1 mL, l 19:18: Herman Route: Jorge Alberto 00 IVP, Drug form: INJ, Q2MIN, PRN Narcotic Reversal, Start date: 02/19/11 14:18:00, Duration: 8 doses or times, Stop date: 02/20/11 14:18:00 hydromorpho No Claudy 0.3 mg, Me moria ne 02-19 Salazar 0.15 mL, l 19:18: Route: [place] 00 IVP, Drug form: INJ, Q5Min, PRN Pain, Start date: 02/19/11 14:18:00, Duration: 5 doses or times, Stop date: Limited # of times ondansetron No Boone 4 mg, 2 Memoria 02-19 r J Carlos mL, Route: l 19:18: Herman IVP, Drug [place] 00 form: INJ, ONCE, PRN Nausea & Vomiting, Start date: 02/19/11 14:18:00 labetalol No [place] 5 mg, 1 Memoria 02-19 r J Carlos mL, Route: l 19:18: Herman IVP, Drug [place] 00 form: INJ, Q5Min, PRN Elevated BP, Start date: 02/19/11 14:18:00, Duration: 5 doses or times, Stop date: 02/20/11 0:00:00 vancomycin No Sky 1 gm, Kalia aida 02-19 Mzee Rizvi Route: l 19:00: IVPB, Drug Jorge Alberto 00 form: INJ, [id number], Start date: 02/19/11 14:00:00, Duration: 30 day, Stop date: 03/21/11 2:00:00 ondansetron Yes Bonnie Jyotsna 4 mg, 2 Memoria 2 mg/mL 920 Zeider mL, IVP, l injectable 21:12: Q8H, PRN, He rmann solution 09 30 mL, Nausea & Vomiting, Substituti on Allowed, SOLN Milk of Yes Bonnie Jyotsna 1.2 gm, 5 Memoria Magnesia 9-20 Zeider mL, PO, l 24% oral 21:12: Daily, Jorge Alberto concentrate 02 PRN, 150 mL, Constipati on, Substituti on Allowed, Maintenanc e, CONC Prinivil 10 Yes Bonnie Jyotsna 10 mg, 1 Memoria mg oral 9-20 Zeider tab, PO, l tablet 21:11: QPM, 30 Jorge Alberto 52 tab, Substituti on Allowed, TAB Keppra 500 Yes Bonnie Jyotsna 500 mg, 1 Memoria mg oral 9-20 Zeider tab, PO, l tablet 21:11: Q12H, 60 [place] 44 tab, Substituti on Allowed, TAB Humulin N Yes Bonnie Jyotsna 10 unit, Memoria Pen 100 9-20 Zeider SUB-Q, l units/mL 21:09: BID, 3 ml, Her restrepo subcutaneou 34 Substituti s injection on Allowed, SUSP Humulin N Yes Bonnie Jyotsna 10 unit, Memoria Pen 100 9-20 Zeider SUB-Q, l units/mL 21:09: BID, 3 ml, Her restrepo subcutaneou 28 Substituti s injection on Allowed, SUSP hydrALAZINE Yes Bonnie Jyotsna 25 mg, 1 Memoria 25 mg oral 9-20 Zeider tab, PO, l tablet 21:09: BID, 60 [place] 07 tab, Substituti on Allowed, TAB bisacodyl Yes Bonnie Jyotsna 10 mg, 1 Memoria 10 mg 9-20 Zeider supp, DC, l rectal 21:08: Bedtime, Jorge Alberto suppository 53 PRN, 30 supp, Constipati on, Substituti on Allowed, SUPP [place] 5/325 Yes Bonnie Jyotsna 1 tab, PO, Memoria oral tablet 9-20 Zeider Q4H, PRN, l 21:08: 30 tab, as [place] 50 needed for pain, Substituti on Allowed, Maintenanc e, TAB [place] Yes Bonnie Jyotsna 120 mg, 1 Memoria Thyroid 120 9-20 Zeider tab, PO, l mg oral 21:08: Daily, 30 Gerda nn tablet 42 tab, Substituti on Allowed, TAB Crestor 20 Yes Bonnie Jyotsna 20 mg, 1 Memoria mg oral 20 Zeider tab, PO, l tablet 21:08: Daily, 30 Berto n 31 tab, Substituti on Allowed, TAB metFORmin Yes Bonnie Jyotsna 500 mg, 1 Memoria 500 mg oral 920 Zeider tab, PO, l tablet 21:08: Q8H, 90 Jorge Alberto 06 tab, Substituti on Allowed, TAB normal No Katie L 1,000 mL, M emoria saline 0.9% 02-18 Christianson Rate: 100 l IV 1,000 mL 16:29: ml/hr, Herm Infuse over: 10 hr, Route: IV, Total Volume: 1,000, Start date: 02/18/11 11:29:00, Duration: 30 day, Stop date: 03/20/11 11:28:00 potassium No 25 mEq, Memor ia bicarbonate 15 Substituti l 25 mEq oral 23:15: on Allowed Jorge Alberto tablet, 20 effervescen t potassium No Mujahed M 40 mEq, 30 Memoria chloride 914 Alikhan mL, Route: l 16:00: PO, Drug form: LIQ, Daily, Start date: 02/12/11 11:00:00, Duration: 30 day, Stop date: 03/14/11 8:00:00 Kayexalate No Fide B 15 gm, 60 Memoria 9-14 Dean mL, Route: l 02:17: PO, Drug form: SUSP, ONCE, Start date: 02/11/11 21:17:00, Stop date: 02/11/11 21:17:00 Kayexalate No Meilani H 30 gm, 120 Memoria 9-13 [place] mL, Route: l 22:22: PO, Drug form: SUSP, ONCE, Start date: 02/11/11 17:22:00, Stop date: 02/11/11 17:22:00 NS (Bolus) No Skyler 1,000 mL, Memoria IV 1,000 mL 02-11 Dean Rate: l 13:37: Joel 1,000 [place] 00 ml/hr, Infuse over: 1 hr, Route: IV, Total Volume: 1,000, Priority: STAT, Start date: 02/11/11 8:37:00, Duration: 1 doses or times, Stop date: 02/11/11 9:36:00, Bolus DoseBolus Dose dexamethaso No Bonnie Jyotsna 1 mg, 1 Memoria ne 02-11 Zeider tab, l 13:00: Route: PO, [place] Drug form: TAB, Daily, Start date: 02/11/11 8:00:00, Duration: 2 day, Stop date: 02/12/11 8:00:00 Fleet Enema No Skyler 133 ml, Memoria 02-10 Dean Route: DC, l 19:15: Joel Drug Form: Herm mercy 00 JEANNIE, ONCE, Start date: 02/10/11 14:15:00, Stop date: 02/10/11 14:15:00 bisacodyl No Skyler 10 mg, 1 M emoria 02-10 Dean supp, l 19:15: Joel Route: DC, Herm mercy Drug form: SUPP, ONCE, Start date: 02/10/11 14:15:00, Stop date: 02/10/11 14:15:00 dexamethaso No Bonnie Jyotsna 1 mg, 1 Memoria ne 02-09 Zeider tab, l 13:00: Route: PO, Jorge Alberto 00 Drug form: TAB, BID, Start date: 02/09/11 8:00:00, Duration: 2 day, Stop date: 02/10/11 20:00:00 Xylocaine No Lam M 1 appl, Me moria Jelly 2% 02-08 Allam Route: l topical gel 21:04: TOP, Q6H, H ermann with Drug form: applicator GEL PRN Pain, Start date: 02/08/11 16:04:00, Duration: 30 day, Stop date: 03/10/11 16:03:00 dexamethaso No Meilani H 1 mg, 1 Memoria ne 02-07 [place] tab, l 13:00: Route: PO, Jorge Alberto Drug form: TAB, TID, Start date: 02/07/11 8:00:00, Duration: 2 day, Stop date: 02/08/11 17:00:00 Prinivil 2010-0 No Bonnie Jyotsna 10 mg, 1 Memoria 02-06 Zeider tab, l 22:00: Route: PO, Drug form: TAB, QPM, Start date: 02/06/11 17:00:00, Duration: 30 day, Stop date: 03/07/11 17:00:00 dexamethaso 2010- No Meilani H 2 mg, 1 Memoria ne 02-05 [place] tab, l 13:00: Route: PO, Drug form: TAB, TID, Start date: 02/05/11 8:00:00, Duration: 2 day, Stop date: 02/06/11 17:00:00 lisinopril 2010-0 No Bonnie Jyotsna 10 mg, 1 Memoria 02-04 Zeider tab, l 13:00: Route: PO, Drug form: TAB, QPM, Start date: 02/04/11 8:00:00, Duration: 30 day, Stop date: 03/05/11 17:00:00 insulin 2010-0 No Mujahed M 8 unit, 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 9-06 Alikhan 0.08 mL, l H 11:30: Route: Jorge Alberto 00 SUB-Q, Drug form: INJ, Before Breakfast, Start date: 02/04/11 6:30:00, Stop date: 03/05/11 6:30:00 insulin 2010-0 No Mujahed M 8 unit, 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 9-06 Alikhan 0.08 mL, l H 02:00: Route: [place] 00 SUB-Q, Drug form: INJ, Bedtime, Start date: 02/03/11 21:00:00, Stop date: 03/04/11 21:00:00 potassium 2010-0 No Darcy 40 mEq, 2 Memoria chloride 20 02-03 Jeane tab, l mEq oral 19:29: [place] Route: PO, , 00 Drug form: extended ERTAB, release ONCE, Start date: 02/03/11 14:29:00, Stop date: 02/03/11 14:29:00 potassium No Bonnie Jyotsna 40 mEq, 2 Memoria chloride 20 02-03 Zeider tab, l mEq oral 14:00: Route: PO, Her restrepo tablet, 00 Drug form: extended ERTAB, release Daily, Start date: 02/03/11 9:00:00, Stop date: 03/05/11 8:00:00 dexamethaso No Meilani H 3 mg, 1.5 Memoria ne 02-03 [place] tab, l 13:00: Route: PO, Drug form: TAB, TID, Start date: 02/03/11 8:00:00, Duration: 2 day, Stop date: 02/04/11 17:00:00 insulin No Darcy 15 unit, Memoria 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 02-03 Jeane 0.15 mL, l H 05:00: Ash Route: SUB-Q, Drug form: INJ, Q24H, Start date: 02/03/11 0:00:00, Duration: 30 day, Stop date: 03/04/11 0:00:00 Keppra No Meilani H 500 mg, 1 M emoria 02-03 [place] tab, l 02:00: Route: PO, Drug form: TAB, Q12H, Start date: 02/02/11 21:00:00, Duration: 30 day, Stop date: 03/04/11 9:00:00 hydrALAZINE No Darcy 25 mg, 1 Memoria 25 mg oral 02-01 Jeane tab, l tablet 22:00: Ash Route: PO, H Drug form: TAB, BID, Start date: 02/01/11 17:00:00, Stop date: 03/03/11 8:00:00 heparin No Sky 5,000 Memoria 02-01 Mzee Rizvi unit, 1 l 21:00: mL, Route: SUB-Q, Drug form: INJ, Q8H, Start date: 02/01/11 16:00:00, Duration: 30 day, Stop date: 03/03/11 8:00:00 Kayexalate 2011-0 No Darcy 15 gm, 60 Memoria - Jeane mL, Route: l 18:19: Ash PO, Drug Gerda nn 00 form: SUSP, ONCE, Start date: 02/01/11 13:19:00, Stop date: 02/01/11 13:19:00 potassium 2010-0 No Darcy 20 mEq, 1 Memoria chloride 20 02-01 Jeane tab, l mEq oral 14:00: [place] Route: PO, Jorge Alberto tablet, 00 Drug form: extended ERTAB, release Daily, Start date: 02/01/11 9:00:00, Duration: 30 day, Stop date: 03/02/11 9:00:00 Crestor 2010- No Bonnie Jyotsna 20 mg, 2 Memoria 02-01 Zeider tab, l 14:00: Route: PO, Jorge Alberto 00 Drug form: TAB, Daily, Start date: 02/01/11 9:00:00, Duration: 30 day, Stop date: 03/02/11 9:00:00 Lasix 40 mg No Fide B 80 mg, 2 Memoria oral tablet 02-01 Dean tab, l 14:00: Route: PO, [place] 00 Drug form: TAB, Daily, Start date: 02/01/11 9:00:00, Duration: 30 day, Stop date: 03/02/11 9:00:00 atenolol 50 No Darcy 50 mg, 1 Memoria mg oral 02-01 Jeane tab, l tablet 14:00: Ash Route: PO, H erm Drug form: TAB, Daily, Start date: 02/01/11 9:00:00, Duration: 30 day, Stop date: 03/02/11 9:00:00 [place] 2010- No Bonnie Jyotsna 120 mg, 2 Memoria Thyroid 02-01 Zeider tab, l 14:00: Route: PO, Jorge Alberto Drug form: TAB, Daily, Start date: 02/01/11 9:00:00, Duration: 30 day, Stop date: 03/02/11 9:00:00 dexamethaso 2010- No Bonnie Jyotsna 4 mg, 1 Memoria ne 02-01 Zeider tab, l 05:00: Route: PO, [place] Drug form: TAB, Q8H, Start date: 02/01/11 0:00:00, Duration: 2 day, Stop date: 02/02/11 16:00:00 Humulin N No Darcy 20 unit, Memoria 02-01 Jeane 0.2 mL, l 05:00: Ash Route: Jorge Alberto 00 SUB-Q, Drug form: INJ, BID, Start date: 02/01/11 0:00:00, Stop date: 03/02/11 16:00:00 Keppra 100 No Bonnie Jyotsna 500 mg, 5 Memoria mg/mL oral 02-01 Zeider mL, Route: l solution 02:00: [place], Drug Gerda nn form: SOLN, Q12H, Start date: 01/31/11 21:00:00, Duration: 30 day, Stop date: 03/02/11 9:00:00 Insulin No Gideon 1 unit, Kalia aida regular 01-31 Jv 0.01 mL, l 22:22: Nur Route: Jorge Alberto SUB-Q, Drug form: SOLN, TID-Before Meals, PRN Blood Glucose Results, Start date: 01/31/11 17:22:00, Duration: 30 day, Stop date: 03/02/11 17:21:00 Milk of No Gideon 30 mL, Memor ia Magnesia 01-31 Jv Route: PO, l 22:22: Nur Drug Form: Gerda nn SUSP, Daily, PRN Constipati on, Start date: 01/31/11 17:22:00, Duration: 30 day, Stop date: 03/02/11 17:21:00 bisacodyl No Gideon 10 mg, 1 M emoria 01-31 Jv supp, l 22:22: Nur Route: DC, Gerda nn Drug form: SUPP, Bedtime, PRN Constipati on, Start date: 01/31/11 17:22:00, Duration: 30 day, Stop date: 03/02/11 17:21:00 ondansetron No Gideon 4 mg, 2 Memoria 01-31 Jv mL, Route: l 22:22: Nur IVP, Drug B[place] n form: INJ, Q8H, PRN Nausea & Vomiting, Start date: 01/31/11 17:22:00, Duration: 30 day, Stop date: 03/02/11 17:21:00 Saline No Gideon 3 mL, Memoria Flush 0.9% 01-31 Jv Route: l 22:22: Nur IVP, Drug Berto n 00 Form: INJ, Q8H, PRN Line Flush, Start date: 01/31/11 17:22:00, Duration: 30 day, Stop date: 03/02/11 17:21:00, Administer at least once every 8 hoursAdmin ister at least once every 8 hours Byrob No Bonnie Jyotsna Route: Mem oria 01-31 Zeider SUB-Q, l 22:00: Drug form: [place] 00 INJ, BID, Start date: 01/31/11 17:00:00, Duration: 30 day, Stop date: 03/02/11 9:00:00 metFORmin No Bonnie Jyotsna 500 mg, 1 Memoria 500 mg oral 01-31 Zeider tab, l tablet 21:00: Route: PO, Gerda nn 00 Drug form: TAB, Q8H, Start date: 01/31/11 16:00:00, Duration: 30 day, Stop date: 03/02/11 8:00:00 [place] 5/325 No Bonnie Jyotsna 1 tab, Memoria oral tablet 01-31 Zeider Route: PO, l 19:56: Drug Form: Jorge Alberto 00 TAB, Q4H, PRN as needed for pain, Start date: 01/31/11 14:56:00, Duration: 30 day, Stop date: 03/02/11 14:55:00 bisacodyl No Bonnie Jyotsna 10 mg, Memoria 01-31 Zeider Route: DC, l 19:56: Drug form: [place] 00 SUPP, Daily, PRN as needed for constipati on, Start date: 01/31/11 14:56:00, Duration: 30 day, Stop date: 03/02/11 14:55:00 Keppra 100 Yes Bonnie Jyotsna 500 mg, 5 Memoria mg/mL oral 01-31 Zeider mL, NJ, l solution 17:53: Q12H, 60 Gerda nn 02 mL, Substituti on Allowed, SOLN docusate Yes Bonnie Jyotsna 100 mg, 1 Memoria sodium 100 01-31 Zeider cap, PO, l mg oral 17:52: BID, 60 Jorge Alberto capsule 54 cap, Substituti on Allowed, CAP dexamethaso Yes Bonnie Jyotsna 4 mg, 1 Memoria ne 4 mg 01-31 Zeider tab, PO, l oral tablet 17:52: Q6H-02, 60 [place] 42 tab, Substituti on Allowed, TAB bisacodyl Yes Bonnie Jyotsna 10 mg, 1 Memoria 10 mg 01-31 Zeider supp, DC, l rectal 17:52: Daily, Jorge Alberto suppository 36 PRN, 60 supp, Constipati on, Substituti on Allowed, SUPP [place] 5325 Yes Bonnie Jyotsna 1 tab, PO, Memoria oral tablet 01-31 Zeider Q4H, PRN, l 17:52: 60 tab, Jorge Alberto 26 Headache, Substituti on Allowed, Maintenanc e, TAB [place] 325 No Abel 1 tab, M emoria oral tablet 01-30 Howard Route: PO, l 20:44: [place] Drug Form: Berto n 00 TAB, Q4H, PRN Headache, Start date: 01/30/11 15:44:00, Duration: 30 day, Stop date: 03/01/11 15:43:00 dexamethaso No Katie L 4 mg, 1 Memoria ne 01-29 Christianson tab, l 17:00: Route: PO, [place] 00 Drug form: TAB, Q6H-02, Start date: 01/29/11 12:00:00, Stop date: 02/28/11 6:00:00 insulin No Memo 20 unit, Kalia aida 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 01-29 Omidvar 0.2 mL, l H 13:00: Route: Jorge Alberto 00 SUB-Q, Drug form: INJ, Q8H, Start date: 01/29/11 8:00:00, Stop date: 02/28/11 0:00:00 Keppra 100 No Juan J 500 mg, 5 Memoria mg/mL oral 8-31 Srikanth Boss mL, Route: l solution 02:00: [place], Drug Gerda nn form: SOLN, Q12H, Start date: 01/28/11 21:00:00, Duration: 30 day, Stop date: 02/27/11 9:00:00 ranitidine No Juan J 150 mg, 10 Memoria 15 mg/mL 8-31 Srikanth Boss mL, Route: l oral syrup 02:00: [place], Drug restrepo form: SYRP, Q12H, Start date: 01/28/11 21:00:00, Duration: 30 day, Stop date: 02/27/11 9:00:00 Dextrose No Nazila 6.25 gm, Mem oria 50% Syringe 8-30 Shagagi 12.5 mL, l 22:39: Route: [place] 00 IVP, Drug Form: INJ, PRN, PRN Abnormal Lab Result, Start date: 01/28/11 17:39:00, Duration: 30 day, Stop date: 02/27/11 17:38:00 insulin No Emmanuel 3 unit, Memori a regular 8-30 Tatyana 0.03 mL, l human 22:39: George Route: [place] recombinant 00 SUB-Q, 100 Drug form: units/mL SOLN, PRN, injectable PRN solution Abnormal Lab Result, Start date: 01/28/11 17:39:00, Duration: 30 day, Stop date: 02/27/11 17:38:00 metFORmin No Darcy 1,000 mg, Memoria 1000 mg 830 Jeane 1 tab, l oral tablet 22:00: [place] Route: PO, [place] 00 Drug form: TAB, BID, Start date: 01/28/11 17:00:00, Duration: 30 day, Stop date: 02/27/11 9:00:00 heparin No Jimmy 5,000 Memoria 8-30 [place] unit, 1 l 05:00: mL, Route: Jorge Alberto 00 SUB-Q, Drug form: INJ, Q8H, Start date: 01/28/11 0:00:00, Duration: 30 day, Stop date: 02/26/11 16:00:00 sodium Yes Ramos L 18 mmol, 6 M emoria phosphate 01-27 Day mL, Route: l 08:30: IV, ONCE, Jorge Alberto 00 Start date: 01/27/11 3:30:00, Stop date: 01/27/11 3:30:00 normal No Emmanuel 1,000 mL, Memor ia saline 0.9% 01-26 Tatyana Rate: 50 l IV 1,000 mL 22:48: George ml/hr, Her restrepo 00 Infuse over: 20 hr, Route: IV, Total Volume: 1,000, Start date: 01/26/11 17:48:00, Duration: 30 day, Stop date: 02/25/11 17:47:00 labetalol No Jimmy 200 mg, 1 M emoria 01-26 [place] tab, l 21:00: Route: PO, Jorge Alberto 00 Drug form: TAB, Q8H, Start date: 01/26/11 16:00:00, Stop date: 02/25/11 8:00:00 dexamethaso No Sky 6 mg, 1 M emoria ne 01-26 Ollie Rizvi tab, l 21:00: Route: PO, Drug form: TAB, Q4H, Start date: 01/26/11 16:00:00, Duration: 30 day, Stop date: 02/25/11 12:00:00 propofol 10 No Isabel 1,000 mg, Memoria mg/ml 01-26 Manasa 100 mL, l (titrate) 20:51: Christian Rate: Herm mercy 1,000 mg 00 Titrate as directed, Route: IV, Total Volume: 100 ml, Start date: 01/26/11 15:51:00, Duration: 30 day, Stop date: 02/25/11 15:50:00, Replace Every: 24 hr dexamethaso No Odell Voda 10 mg, Memoria ne 01-26 Route: l 17:00: IVP, Q6H, [place] 00 Start date: 01/26/11 12:00:00, Duration: 30 day, Stop date: 02/25/11 6:00:00 mannitol No Isabel 75 gm, 375 Me moria 01-26 Manasa mL, Route: l 17:00: Christian IVPB, Drug form: INJ, Q6H, Start date: 01/26/11 12:00:00, Duration: 30 day, Stop date: 02/25/11 6:00:00 mannitol 2010-0 No Imoigele P 75 gm, 375 Memoria 01-26 Aisiku mL, Route: l 15:00: IVPB, Drug form: INJ, ONCE, Start date: 01/26/11 10:00:00, Stop date: 01/26/11 10:00:00 potassium 2010- No Miles D 36 mmol, M emoria phosphate 01-26 Christian 12 mL, l 08:29: Route: [place] 00 IVPB, On Adm, Start date: 01/26/11 3:29:00, Duration: 1 doses or times, Stop date: 01/26/11 8:00:00 mannitol 0 No Odell Voda 50 gm, Mem oria 01-25 Route: l 22:50: IVPB, ONCE, Start date: 01/25/11 17:50:00, Stop date: 01/25/11 17:50:00 heparin No Sky 5,000 Memoria 01-25 [facility] Rizvi unit, 1 l 21:00: mL, Route: SUB-Q, Drug form: INJ, Q8H, Start date: 01/25/11 16:00:00, Duration: 30 day, Stop date: 02/24/11 8:00:00 sodium Yes Miles D 15 mmol, 5 Me moria phosphate 01-25 Christian mL, Route: l 13:20: IV, ONCE, Jorge Alberto 00 Start date: 01/25/11 8:20:00, Stop date: 01/25/11 8:20:00 sodium 0 No Miles D 15 mmol, Kalia aida phosphate 01-25 Christian Route: l 11:44: IVPB, PRN, PRN Abnormal Lab Result, Start date: 01/25/11 6:44:00, Duration: 30 day, Stop date: 02/24/11 6:43:00 magnesium 2010-0 No Miles D 4 gm, 100 Memoria sulfate 01-25 Christian mL, Route: l 11:44: IVPB, Drug form: INJ, ONCE, Start date: 01/25/11 6:44:00, Duration: 1 doses or times, Stop date: 01/25/11 6:44:00, For Mg = 1.5 - 1.7 mg/dLFor Mg = 1.5 - 1.7 mg/dL hydrALAZINE No Miles D 10 mg, 0.5 Memoria 01-25 Christian mL, Route: l 05:14: IV, Drug form: INJ, Q30Min, PRN Hypertensi on, Start date: 01/25/11 0:14:00, Duration: 30 day, Stop date: 02/24/11 0:13:00 dexamethaso No Sky 10 mg, 1 Memoria ne 01-25 Mzee Rizvi mL, Route: l 05:00: IV, Drug form: INJ, Q6H, Start date: 01/25/11 0:00:00, Stop date: 02/23/11 18:00:00 Insulin No Jimmy 99 mL, Memori a regular 100 01-25 [place] Rate: l unit + 04:59: TITRATE, [place] Sodium 00 Route: IV, Chloride Total 0.9% IV 99 Volume: mL 100, Start date: 01/24/11 23:59:00, Duration: 30 day, Stop date: 02/23/11 23:58:00 Dextrose No Miles D 12.5 gm, Me moria 50% Syringe 01-25 Christian 25 mL, l 04:41: Route: [place] IVP, Drug Form: INJ, PRN, PRN Abnormal Lab Result, Start date: 01/24/11 23:41:00, Duration: 30 day, Stop date: 02/23/11 23:40:00 Insulin No Miles D 100 mL, Kalia aida regular 100 01-25 Christian Rate: l unit + 04:41: Start at Jorge Alberto Sodium 00 0.05 Chloride units/kg/h 0.9% our-, (titrate) Route: 100 mL IVPB, Total Volume: 100, Duration: 30 day, Stop date: 02/23/11 23:41:00, Replace Every: 24 hr labetalol No Miles D 10 mg, 2 [facility] 01-[facility] Christian mL, Route: l 03:36: IV, Drug form: INJ, Q15Min, PRN Hypertensi on, Start date: 01/24/11 22:36:00, Duration: 30 day, Stop date: 02/23/11 22:35:00 levetiracet No Juan J 500 mg, M [facility] am 01-25 Srikanth Boss Route: IV, l 02:00: Q12H, Jorge Alberto 00 Start date: 01/24/11 21:00:00, Duration: 30 day, Stop date: 02/23/11 9:00:00 famotidine No Juan J 20 mg, 2 M [facility] 01-25 Srikanth Boss mL, Route: l 02:00: IV, Drug form: INJ, Q12H, Start date: 01/24/11 21:00:00, Stop date: 02/23/11 9:00:00 propofol 10 No Isabel 1,000 mg, Memoria mg/ml 01-25 Manasa 100 mL, l (titrate) 01:56: Christian Rate: Herm mercy 1,000 mg 00 Titrate as directed, Route: IV, Total Volume: 100 ml, Start date: 01/24/11 20:56:00, Duration: 30 day, Stop date: 02/23/11 20:55:00, Replace Every: 12 hr chlorhexidi No Roopa Tatyana 15 ml, Memoria ne topical 01-25 Ryan Route: l 0.12% 01:00: Ricky&KIKI, [place] liquid 00 Q4H, Drug form: LIQ, Start date: 01/24/11 20:00:00, Duration: 30 day, Stop date: 02/23/11 16:00:00 niCARdipine No Emmanuel 40 mg, 200 Memoria 40 mg in NS 01-25 Tatyana mL, Rate: l 200 ml IV 00:07: George Titrate, Her restrepo 40 mg 00 Route: IV, Total Volume: 200 mL, Duration: 30 day, Stop date: 02/23/11 19:06:00, Replace Every: 24 hr vancomycin No Juan J 1 gm, Kalia aida 01-24 Srikanth Clay Route: l 14:00: IVPB, Drug form: INJ, [id number], Start date: 01/24/11 9:00:00, Duration: 30 day, Stop date: 02/22/11 21:00:00 famotidine No Miles D 20 mg, 1 Memoria 20 mg oral 01-24 Christian tab, l tablet 02:00: Route: PO, Gerda nn Drug form: TAB, Q12H, Start date: 01/23/11 21:00:00, Duration: 30 day, Stop date: 02/22/11 9:00:00 potassium 2010- Yes 20 mEq, Memor ia chloride 20 - PO, Daily, l mEq oral 00:21: Substituti Her restrepo tablet, 33 on extended Allowed, release TAB Lasix 40 mg Yes 80 mg, 2 Me moria oral tablet 01-24 tab, PO, l 00:20: Daily, 30 [place] 49 tab, Substituti on Allowed, TAB heparin No Jimmy 5,000 Memoria 5000 825 [place] unit, 1 l units/mL 21:00: mL, Route: Her restrepo injectable 00 SUB-Q, solution Drug form: INJ, Q8H, Start date: 01/23/11 16:00:00, Duration: 30 day, Stop date: 02/22/11 8:00:00 Byetta Yes 250 mcg, Memoria 8-25 SUB-Q, l 19:31: BIDJorge Alberto 55 Substituti on Allowed, INJ cephalexin Yes 500 mg, Kalia aida monohydrate 8-25 PO, TID, l 500 mg oral 19:30: Substituti Jorge Alberto tablet 52 on Allowed, CAP Levaquin Yes 1 tab, PO, Mem oria 500 mg oral 8-25 Q24H, 10 l tablet 19:30: tabJorge Alberto 16 Substituti on Allowed, TAB metFORmin 2010- Yes 500 mg, Memor ia 500 mg oral 8-25 PO, TID, l tablet 19:30: Substituti Gerda nn 00 on Allowed, TAB Crestor 20 Yes 1 tab, PO, M emoria mg oral 8-25 Daily, 30 l tablet 19:29: tab, [place] 42 Substituti on Allowed, TAB benzonatate Yes 1 cap, PO, Memoria 200 mg oral 8-25 TID, 30 l capsule 19:29: cap, Jorge Alberto 30 Substituti on Allowed, CAP atenolol 50 Yes 1 tab, PO, Memoria mg oral 8-25 Daily, 30 l tablet 19:29: tab, [place] 06 Substituti on Allowed [place] Yes Bonnie Goyal 1 tab, PO, Memoria Thyroid 120 8-25 Zeider Daily, 30 l mg oral 19:28: tab, Jorge Alberto tablet 50 Substituti on Allowed, TAB docusate No Roopa Tatyana 100 mg, 1 Memoria 8-25 Ryan cap, l 14:00: Route: PO, [place] 00 Drug form: CAP, BID, Start date: 01/23/11 9:00:00, Stop date: 02/21/11 17:00:00 Senna 8.6 No Gideon 8.6 mg, 1 Memoria mg oral 8-25 Jv tab, l tablet 14:00: Nur Route: PO, Her Drug Form: TAB, Q12H, Start date: 01/23/11 9:00:00, Duration: 30 day, Stop date: 02/21/11 21:00:00 levetiracet No Miles D 500 mg, 1 Memoria am 8-25 Christian tab, l 14:00: Route: PO, [place] 00 Drug form: TAB, Q12H, Start date: 01/23/11 9:00:00, Duration: 30 day, Stop date: 02/21/11 21:00:00 calcium No Ramos L 1,000 mg, M emoria chloride 01-23 Day 10 mL, l 13:30: Route: IVPB, ONCE, Start date: 01/23/11 8:30:00, Stop date: 01/23/11 8:30:00 magnesium 2010- No Ramos L 2 gm, 50 Memoria sulfate 825 Day mL, Route: l 13:20: IVPB, Drug form: INJ, Q2H, Start date: 01/23/11 8:20:00, Duration: 2 doses or times, Stop date: 01/23/11 10:00:00 dexamethaso No Miles D 4 mg, 1 Memoria ne 8-25 Christian tab, l 11:00: Route: PO, Jorge Alberto 00 Drug form: TAB, Q6H, Start date: 01/23/11 6:00:00, Duration: 30 day, Stop date: 02/22/11 0:00:00 acetaminoph 2010- No Gideon 650 mg, 2 Memoria en 8-25 Jv tab, l 10:22: Nur Route: PO, Gerda nn Drug form: TAB, Q4H, PRN Pain/Fever , Start date: 01/23/11 5:22:00, Duration: 30 day, Stop date: 02/22/11 5:21:00 morphine No Sky 2 mg, 1 Kalia aida Sulfate 8-25 Mzee Rizvi mL, Route: l 10:22: IVP, Drug form: INJ, Q4H, PRN Pain Score 4-6, Start date: 01/23/11 5:22:00, Duration: 30 day, Stop date: 02/22/11 5:21:00, Hold for respirator y rate of 8 or less NS + KCL No Isabel 1,000 mL, Mem oria 20mEq/L 825 Manasa Rate: 60 l 1000ml 10:21: Christian ml/hr, Berto n (Premix) 00 Infuse 1,000 mL over: 16.7 1,000 mL hr, Route: IV, Total Volume: 1,000, Start date: 01/23/11 5:21:00, Duration: 30 day, Stop date: 02/22/11 5:20:00 insulin No Gideon 5 unit, Kalia aida regular 8-25 Jv 0.05 mL, l human 10:14: Nur Route: [place] recombinant 00 SUB-Q, 100 Drug form: units/mL SOLN, PRN, injectable PRN solution Abnormal Lab Result, Start date: 01/23/11 5:14:00, Duration: 30 day, Stop date: 02/22/11 5:13:00 Dextrose 2010- No Gideon 6.25 gm, Me moria 50% Syringe 8-25 Jv 12.5 mL, l 10:14: [place] Route: Jorge Alberto 00 IVP, Drug Form: INJ, PRN, PRN Abnormal Lab Result, Start date: 01/23/11 5:14:00, Duration: 30 day, Stop date: 02/22/11 5:13:00 Saline 2010- No Gideon 5 ml, Memoria Flush 0.9% 8-25 Jv Route: l 10:14: Boom IVP, Drug Berto n 00 Form: INJ, PRN, PRN Line Flush, Start date: 01/23/11 5:14:00, Duration: 30 day, Stop date: 02/22/11 5:13:00 bisacodyl 2010- No Gideon 10 mg, 1 M emoria 8-25 Jv supp, l 10:14: Boom Route: DC, Gerda nn 00 Drug form: SUPP, Daily, PRN Constipati on, Start date: 01/23/11 5:14:00, Duration: 30 day, Stop date: 02/22/11 5:13:00 acetaminoph 2010- No Gideon 650 mg, 2 Memoria en 8-25 Jv tab, l 10:14: Boom Route: PO, Gerda nn 00 Drug form: TAB, Q4H, PRN Pain/Fever , Start date: 01/23/11 5:14:00, Duration: 30 day, Stop date: 02/22/11 5:13:00 morphine 2010-0 No Gideon 2 mg, 1 Mem oria Sulfate 8-25 Jv mL, Route: l 10:14: Boom IVP, Drug Berto n 00 form: INJ, Q1H, PRN Pain Score 7-10, Start date: 01/23/11 5:14:00, Duration: 30 day, Stop date: 02/22/11 5:13:00 ondansetron 2010-0 No Gideon 4 mg, 2 Memoria 8-25 Jv mL, Route: l 10:14: Boom IVP, Drug Berto n 00 form: INJ, Q8H, PRN Nausea & Vomiting, Start date: 01/23/11 5:14:00, Duration: 30 day, Stop date: 09/24/11 5:13:00 Mestinon 60 Mestinon 60 Yes U nivers MG Oral MG Oral ity of Tablet Tablet [place] [facility] Trulicity Trulicity Yes Unive rs 0.75 0.75 ity of MG/0.5ML MG/0.5ML [place] Subcutaneou Subcutaneou P hysici s Solution s Solution ans Pen-injecto Pen-injecto r r Levothyroxi Levothyroxi Yes U nivers ne Sodium ne Sodium ity o f 88 MCG Oral 88 MCG Oral [place] Tablet Tablet Physici ans Potassium Potassium Yes Unive rs TABS TABS ity of [place] [facility]ici [facility] Furosemide Furosemide Yes Uni vers 20 MG Oral 20 MG Oral ity of Tablet Tablet [place] [facility] Ramipril 10 Ramipril 10 Yes U nivers MG Oral MG Oral ity of Capsule Capsule [place] [facility] amLODIPine amLODIPine Yes Uni vers Besylate 5 Besylate 5 ity of MG Oral MG Oral [place] Tablet Tablet Physici ans Lantus SOLN Lantus SOLN Yes U nivers ity of [place] [facility] Plavix 75 Plavix 75 Yes Unive rs MG Oral MG Oral ity of Tablet Tablet [place] [facility] Gabapentin Gabapentin Yes Uni vers 100 MG TABS 100 MG TABS i ty of [place] [facility] Vital Signs Vital Name Observation Time Observation Value Comments Source BP Systolic 2019-05-05 148 mm[Hg] [facility] 11:27:00 [place] [facility] BP Diastolic 2019-05-05 62 mm[Hg] [facility] 11:27:00 [place] [facility] Height 2019-05-05 59 [in_us] [facility] 11:27:00 [place] [facility] Temperature 2019-05-05 98.5 [degF] [facility] 11:27:00 [place] [facility] Heart Rate 2019-05-05 72 /min [facility] 11:27:00 [place] [facility] Height 2019-05-05 59 [in_us] [facility] 11:26:00 [place] [facility] Temperature 2019-05-05 98.5 [degF] [facility] 11:26:00 [place] [facility] Temperature Oral 2019-03-04 98.8 F [facility] Herberth barnes (F) 19:30:00 Heart Rate 2019-03-04 Jan Thomson n 19:30:00 Respitory Rate 2019-03-04 Jan law 19:30:00 Systolic (mm Hg) 2019-03-04 [facility] 19:30:00 Diastolic (mm Hg) 2019-03-04 [facility] 19:30:00 Temperature Oral 2019-03-04 97.9 F [facility] (F) 17:05:00 Heart Rate 2019-03-04 [facility] 17:05:00 Respitory Rate 2019-03-04 [facility] 17:05:00 Systolic (mm Hg) 2019-03-04 [facility] 17:05:00 Diastolic (mm Hg) 2019-03-04 [facility] 17:05:00 Temperature Oral 2019-03-04 98.6 F [facility] (F) 12:51:00 Heart Rate 2019-03-04 [facility] 12:51:00 Respitory Rate 2019-03-04 [facility] 12:51:00 Systolic (mm Hg) 2019-03-04 [facility] 12:51:00 Diastolic (mm Hg) 2019-03-04 [facility] 12:51:00 Height 2019-03-01 149.86 cm [facility] 01:52:00 Weight 2019-03-01 [facility] 01:52:00 BMI Calculated 2019-03-01 [facility] 01:52:00 Height 2019-02-16 149.86 cm [facility] 12:59:00 Weight 2019-02-16 [facility] 12:59:00 Height 2019-02-09 149.86 cm [facility] 20:57:00 Weight 2019-02-09 [facility] 20:57:00 BMI Calculated 2019-02-05 [facility] 14:39:00 Height 2019-01-25 59 [in_us] [facility] 08:41:00 [place] [facility] Temperature 2019-01-25 98.3 [degF] [facility] 08:41:00 [place] [facility] Temperature Oral 2019-01-10 97.6 F [facility] (F) 20:03:00 Heart Rate 2019-01-10 [facility] 20:03:00 Respitory Rate 2019-01-10 [facility] 20:03:00 Systolic (mm Hg) 2019-01-10 [facility] 20:03:00 Diastolic (mm Hg) 2019-01-10 [facility] 20:03:00 Temperature Oral 2019-01-10 97.6 F [facility] (F) 17:10:00 Heart Rate 2019-01-10 [facility] 17:10:00 Respitory Rate 2019-01-10 [facility] 17:10:00 Systolic (mm Hg) 2019-01-10 [facility] 17:10:00 Diastolic (mm Hg) 2019-01-10 [facility] 17:10:00 Temperature Oral 2019-01-10 97.9 F [facility] (F) 13:29:00 Heart Rate 2019-01-10 [facility] 13:29:00 Respitory Rate 2019-01-10 [facility] 13:29:00 Systolic (mm Hg) 2019-01-10 [facility] 13:29:00 Diastolic (mm Hg) 2019-01-10 [facility] 13:29:00 Height 2018-12-27 152.4 cm [facility] 22:11:00 Height 2018-12-27 152.4 cm [facility] 17:22:00 Height 2018-12-27 152.4 cm [facility] 13:30:00 Weight 2018-12-24 [facility] 23:49:00 BMI Calculated 2018-12-24 [facility] 23:49:00 Temperature Oral 2018-11-29 98.8 F [facility] (F) 17:30:00 Heart Rate 2018-11-29 [facility] 17:30:00 Systolic (mm Hg) 2018-11-29 [facility] 17:30:00 Diastolic (mm Hg) 2018-11-29 [facility] 17:30:00 Respitory Rate 2018-11-29 [facility] 17:30:00 Systolic (mm Hg) 2018-11-29 [facility] 13:00:00 Diastolic (mm Hg) 2018-11-29 [facility] 13:00:00 Height 2018-11-29 149.86 cm [facility] 12:44:00 BMI Calculated 2018-11-29 [facility] 12:44:00 Weight 2018-11-29 [facility] 12:44:00 Systolic (mm Hg) 2018-11-29 [facility] 12:44:00 Diastolic (mm Hg) 2018-11-29 [facility] 12:44:00 Respitory Rate 2018-11-29 [facility] 12:44:00 Heart Rate 2018-11-29 [facility] 12:44:00 Temperature Oral 2018-11-29 98.7 F [facility] (F) 12:44:00 BP Systolic 2018-11-11 149 mm[Hg] Location: [facility] 12:31:00 Position: [place] [facility] Sitting BP Diastolic 2018-11-11 65 mm[Hg] Location: [facility] 12:31:00 Position: [place] [facility] S[facility] Height 2018-11-11 59 [in_us] [facility] 12:31:00 [place] [facility] Weight 2018-11-11 213 [lb_av] [facility] 12:31:00 [place] [facility] Body Mass Index 2018-11-11 43.02 kg/m2 [facility] o f Calculated 12:31:00 [place] [facility] Temperature 2018-11-11 97.6 [degF] Method: Oral [facility] 12:31:00 [place] [facility] Heart Rate 2018-11-11 74 /min Location: [facility] 12:31:00 Apical; [place] [facility] BP Systolic 2018-10-14 164 mm[Hg] Location: [facility] 12:27:00 Position: [place] [facility] Sitting BP Diastolic 2018-10-14 68 mm[Hg] Location: [facility] 12:27:00 Position: [place] [facility] S[facility] Height 2018-10-14 59 [in_us] [facility] 12:27:00 [place] [facility] Weight 2018-10-14 215 [lb_av] [facility] 12:27:00 [place] [facility] Body Mass Index 2018-10-14 43.43 kg/m2 [facility] o f Calculated 12:27:00 [place] [facility] Temperature 2018-10-14 98.5 [degF] Method: Oral [facility] 12:27:00 [place] [facility] Heart Rate 2018-10-14 84 /min Location: [facility] 12:27:00 Apical; [place] [facility] Systolic (mm Hg) 2018-09-23 [facility] 16:41:00 Diastolic (mm Hg) 2018-09-23 [facility] 16:41:00 Respitory Rate 2018-09-23 [facility] 16:41:00 Temperature Oral 2018-09-23 97.8 F [facility] (F) 16:41:00 Heart Rate 2018-09-23 [facility] 16:41:00 Temperature Oral 2018-09-23 97.2 F [facility] (F) 13:04:00 Heart Rate 2018-09-23 [facility] 13:01:00 Systolic (mm Hg) 2018-09-23 [facility] 13:01:00 Diastolic (mm Hg) 2018-09-23 [facility] 13:01:00 Respitory Rate 2018-09-23 [facility] 13:01:00 Systolic (mm Hg) 2018-09-23 [facility] 08:19:00 Diastolic (mm Hg) 2018-09-23 [facility] 08:19:00 Respitory Rate 2018-09-23 [facility] 08:19:00 Heart Rate 2018-09-23 [facility] 08:19:00 Temperature Oral 2018-09-23 98.3 F [facility] (F) 08:19:00 BMI Calculated 2018-09-21 [facility] 23:07:00 Weight 2018-09-21 [facility] 23:07:00 BP Systolic 2018-09-21 136 mm[Hg] Location: [facility] 11:28:00 [place] [facility] BP Diastolic 2018-09-21 88 mm[Hg] Location: [facility] 11:28:00 [place] [facility] Height 2018-09-21 59 [in_us] [facility] 11:28:00 [place] [facility] Weight 2018-09-21 205 [lb_av] [facility] 11:28:00 [place] [facility] Body Mass Index 2018-09-21 41.41 kg/m2 University o f Calculated 11:28:00 [place] [facility] Temperature 2018-09-21 96.8 [degF] Method: [facility] 11:28:00 [place] [facility] Heart Rate 2018-09-21 84 /min Location: [facility] 11:28:00 Apical; [place] [facility] Temperature Oral 2018-09-20 98.1 F [facility] (F) 16:58:00 Temperature Oral 2018-09-20 97.9 F [facility] (F) 13:14:00 Respitory Rate 2018-09-20 [facility] 13:00:00 Systolic (mm Hg) 2018-09-20 [facility] 13:00:00 Diastolic (mm Hg) 2018-09-20 [facility] 13:00:00 Respitory Rate 2018-09-20 [facility] 09:20:00 Systolic (mm Hg) 2018-09-20 [facility] 09:20:00 Diastolic (mm Hg) 2018-09-20 [facility] 09:20:00 Temperature Oral 2018-09-20 97.5 F [facility] rmann (F) 09:15:00 Respitory Rate 2018-09-20 [facility] 08:00:00 Systolic (mm Hg) 2018-09-20 [facility] 08:00:00 Diastolic (mm Hg) 2018-09-20 [facility] 08:00:00 Height 2018-09-15 149.86 cm [facility] 13:11:00 Height 2018-09-15 149.86 cm [facility] 08:55:00 Height 2018-09-15 149.86 cm [facility] 04:33:00 Heart Rate 2018-09-11 [facility] 16:45:00 Heart Rate 2018-09-11 [facility] 13:44:00 Heart Rate 2018-09-11 [facility] 09:13:00 Respitory Rate 2018-09-10 [facility] 03:00:00 Systolic (mm Hg) 2018-09-10 [facility] rmann 03:00:00 Diastolic (mm Hg) 2018-09-10 [facility] 03:00:00 Respitory Rate 2018-09-10 [facility] 01:00:00 Systolic (mm Hg) 2018-09-10 [facility] 01:00:00 Diastolic (mm Hg) 2018-09-10 [facility] 01:00:00 Systolic (mm Hg) 2018-09-09 [facility] 21:00:00 Diastolic (mm Hg) 2018-09-09 [facility] 21:00:00 Respitory Rate 2018-09-09 [facility] 21:00:00 BMI Calculated 2018-09-08 [facility] 11:09:00 Height 2018-09-08 149.86 cm [facility] 11:09:00 Weight 2018-09-08 [facility] 11:09:00 Systolic (mm Hg) 2018-08-20 [facility] 00:50:00 Diastolic (mm Hg) 2018-08-20 [facility] 00:50:00 Respitory Rate 2018-08-20 [facility] 00:50:00 Temperature Oral 2018-08-20 98.0 F [facility] rmann (F) 00:50:00 Temperature Oral 2018-08-19 97.9 F [facility] (F) 20:51:00 Respitory Rate 2018-08-19 [facility] 19:00:00 Temperature Oral 2018-08-19 97.8 F [facility] (F) 17:23:00 Systolic (mm Hg) 2018-08-19 [facility] 17:15:00 Diastolic (mm Hg) 2018-08-19 [facility] 17:15:00 Respitory Rate 2018-08-19 [facility] 17:15:00 Systolic (mm Hg) 2018-08-19 [facility] 17:00:00 Diastolic (mm Hg) 2018-08-19 [facility] 17:00:00 Heart Rate 2018-08-19 [facility] 01:40:00 Heart Rate 2018-08-18 [facility] 09:09:00 Heart Rate 2018-08-18 [facility] 04:38:00 BMI Calculated 2018-08-17 [facility] 08:40:00 Height 2018-08-17 149.86 cm [facility] 08:40:00 Weight 2018-08-17 [facility] 08:40:00 Weight 2018-08-16 [facility] 20:13:00 Height 2018-08-16 152.4 cm [facility] 20:13:00 BMI Calculated 2018-08-16 [facility] 20:13:00 Diastolic (mm Hg) 2011-03-25 [facility] 20:59:00 Systolic (mm Hg) 2011-03-25 [facility] 20:59:00 Temperature Oral 2011-03-25 97.6 F [facility] rmann (F) 20:59:00 Heart Rate 2011-03-25 [facility] 20:59:00 Respitory Rate 2011-03-25 [facility] 20:59:00 Temperature Oral 2011-03-25 97.8 F [facility] (F) 13:00:00 Respitory Rate 2011-03-25 [facility] 13:00:00 Heart Rate 2011-03-25 [facility] 13:00:00 Systolic (mm Hg) 2011-03-25 [facility] 13:00:00 Diastolic (mm Hg) 2011-03-25 [facility] 13:00:00 Diastolic (mm Hg) 2011-03-25 [facility] 08:48:00 Systolic (mm Hg) 2011-03-25 [facility] 08:48:00 Temperature Oral 2011-03-25 97.7 F [facility] (F) 08:48:00 Heart Rate 2011-03-25 [facility] 08:48:00 Respitory Rate 2011-03-25 [facility] 08:48:00 Weight 2011-03-22 [facility] 17:13:00 Height 2011-03-22 149.86 cm [facility] 17:13:00 Weight 2011-03-22 [facility] 10:32:00 Height 2011-03-22 149.86 cm [facility] 10:32:00 Diastolic (mm Hg) 2011-03-15 [facility] 17:00:00 Systolic (mm Hg) 2011-03-15 [facility] 17:00:00 Respitory Rate 2011-03-15 [facility] 17:00:00 Heart Rate 2011-03-15 [facility] 17:00:00 Temperature Oral 2011-03-15 96.6 F [facility] (F) 17:00:00 Diastolic (mm Hg) 2011-03-15 [facility] 12:42:00 Systolic (mm Hg) 2011-03-15 [facility] 12:42:00 Respitory Rate 2011-03-15 [facility] 12:42:00 Heart Rate 2011-03-15 [facility] 12:42:00 Temperature Oral 2011-03-15 98.2 F [facility] (F) 12:42:00 Diastolic (mm Hg) 2011-03-15 [facility] 08:28:00 Systolic (mm Hg) 2011-03-15 [facility] 08:28:00 Respitory Rate 2011-03-15 [facility] 08:28:00 Temperature Oral 2011-03-15 98.0 F [facility] (F) 08:28:00 Heart Rate 2011-03-15 [facility] 08:28:00 Weight 2011-03-14 [facility] 01:48:00 Height 2011-03-14 149.86 cm [facility] 01:48:00 Heart Rate 2011-03-07 [facility] 10:15:00 Respitory Rate 2011-03-07 [facility] 10:15:00 Systolic (mm Hg) 2011-03-07 [facility] 10:15:00 Diastolic (mm Hg) 2011-03-07 [facility] 10:15:00 Temperature Oral 2011-03-07 98.4 F [facility] (F) 10:15:00 Diastolic (mm Hg) 2011-03-07 [facility] 01:39:00 Systolic (mm Hg) 2011-03-07 [facility] 01:39:00 Respitory Rate 2011-03-07 [facility] 01:39:00 Temperature Oral 2011-03-07 98.6 F [facility] (F) 01:39:00 Heart Rate 2011-03-07 [facility] 01:39:00 Systolic (mm Hg) 2011-03-06 [facility] 20:12:00 Temperature Oral 2011-03-06 97.6 F [facility] (F) 20:12:00 Respitory Rate 2011-03-06 [facility] 20:12:00 Heart Rate 2011-03-06 [facility] 20:12:00 Diastolic (mm Hg) 2011-03-06 [facility] 20:12:00 Height 2011-02-26 149.86 cm [facility] 22:41:00 Weight 2011-02-26 [facility] 22:41:00 Temperature Oral 2011-02-26 98.2 F [facility] (F) 18:09:00 Heart Rate 2011-02-26 [facility] 18:09:00 Respitory Rate 2011-02-26 [facility] 18:09:00 Systolic (mm Hg) 2011-02-26 [facility] 18:09:00 Diastolic (mm Hg) 2011-02-26 [facility] 18:09:00 Temperature Oral 2011-02-26 98.9 F [facility] (F) 12:09:00 Heart Rate 2011-02-26 [facility] 12:09:00 Respitory Rate 2011-02-26 [facility] 12:09:00 Systolic (mm Hg) 2011-02-26 [facility] 12:09:00 Diastolic (mm Hg) 2011-02-26 [facility] 12:09:00 Temperature Oral 2011-02-26 98.7 F [facility] (F) 08:19:00 Respitory Rate 2011-02-26 [facility] 08:19:00 Systolic (mm Hg) 2011-02-26 [facility] 08:19:00 Diastolic (mm Hg) 2011-02-26 [facility] 08:19:00 Heart Rate 2011-02-25 [facility] 21:36:00 Weight 2011-02-20 [facility] 01:09:00 Height 2011-02-19 149.86 cm [facility] 21:02:00 Weight 2011-02-19 [facility] 21:02:00 Heart Rate 2011-02-19 [facility] 09:57:00 Temperature Oral 2011-02-19 98.6 F [facility] (F) 09:57:00 Respitory Rate 2011-02-19 [facility] 09:57:00 Systolic (mm Hg) 2011-02-19 [facility] 09:57:00 Diastolic (mm Hg) 2011-02-19 [facility] 09:57:00 Respitory Rate 2011-02-19 [facility] 03:09:00 Systolic (mm Hg) 2011-02-19 [facility] 03:09:00 Diastolic (mm Hg) 2011-02-19 [facility] 03:09:00 Heart Rate 2011-02-19 [facility] 03:09:00 Temperature Oral 2011-02-19 97.5 F [facility] (F) 03:09:00 Diastolic (mm Hg) 2011-02-18 [facility] 20:00:00 Temperature Oral 2011-02-18 98.4 F [facility] Herberth rmann (F) 20:00:00 Heart Rate 2011-02-18 [facility] 20:00:00 Respitory Rate 2011-02-18 [facility] 20:00:00 Systolic (mm Hg) 2011-02-18 [facility] 20:00:00 Height 2011-01-31 149.86 cm [facility] 22:02:00 Weight 2011-01-31 [facility] 22:02:00 Systolic (mm Hg) 2011-01-31 [facility] 12:46:00 Diastolic (mm Hg) 2011-01-31 [facility] 12:46:00 Peripheral Pulse 2011-01-31 [facility] Rate 12:46:00 Respitory Rate 2011-01-31 [facility] 12:46:00 Temperature Oral 2011-01-31 98.5 F [facility] (F) 12:46:00 Peripheral Pulse 2011-01-31 [facility] rmann Rate 11:21:00 Systolic (mm Hg) 2011-01-31 [facility] Herberth rmann 11:21:00 Diastolic (mm Hg) 2011-01-31 [facility] ermann 11:21:00 Diastolic (mm Hg) 2011-01-31 [facility] ermann 10:58:00 Peripheral Pulse 2011-01-31 [facility] rmann Rate 10:58:00 Systolic (mm Hg) 2011-01-31 [facility] rmann 10:58:00 Respitory Rate 2011-01-31 [facility] 10:35:00 Temperature Oral 2011-01-31 97.8 F [facility] Herberth rmann (F) 10:35:00 Respitory Rate 2011-01-31 [facility] 08:28:00 Temperature Oral 2011-01-31 98.1 F [facility] rmann (F) 08:28:00 Height 2011-01-23 149.86 cm [facility] 09:37:00 Weight 2011-01-23 [facility] Berto n 09:37:00 Procedures Procedure Date / Time Performing Source Performed Clinician Transcatheter retrieval, 2019-02-21 Feli Azul percutaneous, of 20:58:00 intravascular foreign body (eg, fractured venous or arterial catheter), includes radiological supervision and interpretation, and imaging guidance (ultrasound or fluoroscopy), when performed [place] Insertion 2019-01-28 [facility] 00:00:00 Physicians XRAY Chest 2 views [id number] 2018-11-12 [facility] 00:00:00 Physicians IVIG Infusion Therapy 2018-11-11 [facility] 00:00:00 Physicians [QL] CBC (INCLUDES DIFF/PLT) [facility] [QL] CMP W/EGFR 2018-11-11 [facility] 00:00:00 Physicians MA Bone Density Scan [id number] 2018-10-14 [facility] 00:00:00 Physicians Selective catheter placement, 2018-08-19 Ri luis fernando Azul vertebral artery, unilateral, 13:02:00 with angiography of the ipsilateral vertebral circulation and all associated radiological supervision and interpretation, includes angiography of the cervicocerebral arch, when performed Insertion or Replacement of 2011-01-26 Kalia Azul Skull Tongs or Halo Traction 05:00:00 Device Other Excision or Destruction 2011-01-26 Me morial [place] of Lesion or Tissue of Brain 05:00:00 Excision of Lesion or Tissue 2011-01-24 Mem orial Jorge Alberto of Cerebral Meninges 05:00:00 Intracranial Pressure 2011-01-24 [facility] ermann Monitoring 05:00:00 Transfusion of Packed Cells 2011-01-24 Kalia rial Jorge Alberto 05:00:00 History of [facility] Ventriculoperitoneal shunt Physi cians creation Cervical laminectomy [facility] rmann section [facility] n Resection [facility] Shunt construction [facility] mercy Tonsillectomy [facility] Plan of Care Planned Activity Planned Date Details Comments Source Diagnostic Test 2018-11-12 XRAY Chest 2 [facility] [place] Pending 00:00:00 views [id number] [code Physicians = [id number]] Future Appointment 2019-11-29 Cheko CORRIGAN [facility] 11:00:00 Angel SR Encounters Start End Encounter Admission Attending Care Care Encounter Source Date/Time Date/Time Type Type Clinicians Facility Department ID 2019-02-05 Inpatient U [facility] MED [id number] [facility] 08:54:00 2018-12-24 Inpatient U [facility] [id number] [facility] 18:32:00 2018-08-16 Inpatient E [facility] [id number] [facility] 23:35:00 2019-05-05 2019-05-05 NIRALI Olson Neurology - [id number] [facility] [place] 11:30:00 11:30:00 t; Cheko CORRIGAN [place] [facility] Dougie CORRIGAN M.D. [place] [facility] 2019-02-05 2019-03-04 Outpatient Hernán [facility] [id number] 08:54:00 18:18:00 Jai 50 Luisy 2019-01-25 2019-01-25 NIRALI Olson Neurology - [id number] [facility] [place] 08:00:00 08:00:00 t; Cheko CORRIGAN [place] [facility] M.[facility]. [place] [facility] 2018-12-24 2019-01-10 Outpatient Lyric [facility] [id number] 18:32:00 15:53:00 Reji 07 2018-11-292018-11-29 Outpatient Stan [facility] [id number] 07:33:57 12:20:00 Abel Vizcaino 2018-11-29 2018-11-29 Emergency E [facility] [id number] [facility] 07:33:00 07:33:00 2018-11-18 2018-11-18 Outpatient JOSUÉ SrOIP MHOIP [id number] 09:50:00 23:59:00 [place] 2018-11-11 2018-11-11 Appointrick SR [facility] Neurology - [id number] [facility] [place] 11:00:00 11:00:00 t; Cheko CORRIGAN [facility] Dougie CORRIGAN M.D. [place] [facility] 2018-10-21 2018-10-21 Outpatient CEZAR SrP OIP [id number] 10:21:00 23:59:00 [place] 2018-10-14 2018-10-14 Jacob SR [facility] Neurology [id number] [facility] [place] 11:30:00 11:30:00 t; [facility] M.D. Physi ci ans 2018-09-21 2018-09-23 Outpatient Hellen [facility] [id number] 18:06:00 16:20:00 David Jacobo 13 2018-09-21 2018-09-23 Outpatient Hellen [facility] [id number] 18:06:00 16:20:00 David Jacobo 13 2018-09-21 2018-09-21 Outpatient U [facility] [id number] [facility] 18:06:00 18:06:00 2018-09-21 2018-09-21 [facility]LE [facility] Neurology [id number] [facility] 10:30:00 10:30:00 t; Cheko CORRIGAN [facility] Dougie CORRIGAN M.D. Physi ci ans 2018-09-12 2018-09-20 Outpatient Smart, [facility] [id number] 15:01:00 16:23:00 Sean Smith 2018-09-12 2018-09-10 Inpatient U [facility] [id number] [facility] 15:01:00 00:20:00 2018-09-09 2018-09-09 Outpatient Okpara, [facility] [id number] 11:57:00 22:17:00 Sadi N 00 2018-09-09 2018-09-08 Inpatient U [facility] MED [id number] Memoria 11:57:00 09:51:00 l [place] [facility] l 2018-08-16 2018-08-19 Outpatient Zbigniew, [facility] [id number] 15:03:00 21:09:00 Sean Smith 2018-08-16 2018-08-17 Outpatient MHMISCHER MISCHER [id number] 10:11:00 23:59:59 00 Results Test Description Test Time Test Comments Results Result Comments Source HEMATOLOGY 2019-03-04 60.1 [facility] 17:02:00 HEMATOLOGY 2019-03-04 32.3 [facility] 17:02:00 HEMATOLOGY 2019-03-04 5.9 [facility] 17:02:00 HEMATOLOGY 2019-03-04 0.7 [facility] 17:02:00 HEMATOLOGY 2019-03-04 1.0 [facility] 17:02:00 HEMATOLOGY 2019-03-04 4.3 [facility] 17:02:00 HEMATOLOGY 2019-03-04 2.3 [facility] 17:02:00 HEMATOLOGY 2019-03-04 0.4 [facility] 17:02:00 HEMATOLOGY 2019-03-04 0.1 [facility] 17:02:00 HEMATOLOGY 2019-03-04 2 [facility] 17:02:00 HEMATOLOGY 2019-03-04 7.2 [facility] 17:02:00 HEMATOLOGY 2019-03-04 3.76 [facility] 17:02:00 HEMATOLOGY 2019-03-04 12.1 [facility] 17:02:00 HEMATOLOGY 2019-03-04 36.8 [facility] 17:02:00 HEMATOLOGY 2019-03-04 97.9 [facility] 17[facility]02:00 HEMATOLOGY 2019-03-04 17:02:00 Test Item Value Reference Range Interpretation Comme nts MCH (test code = MCH) 32.1 pg 27.0-31.0 [facility] XrfxhnyMRXQZMEJEE5936-35-03 17:02:0032.8[facility]annHEMATOLOGY 2019-03-04 17:02:0016.7[facility] UvbwnqhUCJJOANPZF9978-24-85 17:02:32243Kylzudfk WdugofzGCMUXTSVGD4533-45-82 17:02:008.9[facility] GuswafgLRMFBCSAWY8271-55-39 17:02:00<2.9[facility]annBLOOD BANK BJUJLVK1924-73-47 12:49:00Negative (02/26/19 7:49 AM)[facility] OwtwupaNQRPMTPBTQ4329-94-61 09:11:0067.8[facility] ZvrgdojKGJZTCFGQS1083-33-82 09:11:0022.9[facility] WdyafuhJHWZPTHRDB4971-97-27 09:11:007.8[facility] CcfudkmSWMEXPFRNF7151-22-41 09:11:000.4[facility] WAQFVJXNAA5210-00-53 09:11:001.1[facility] JuuizkvJDRWFQNCCO1197-61-94 09:11:006.3 [facility] FxjlzxaMKGLODTWGF9649-19-24 09:11:002.1[facility]annHEMATOLOGY 2019-02-25 09:11:000.7[facility] VisivspHARSNCDFHL9795-67-54 09:11:000.1[facility] DgxqiqrVRXMQCVULP2815-12-48 09:11:001+ *ABN*(02/25/19 4:11 AM)[facility] XATGKDPDEW2162-56-39 09:11:009.2[facility] QalcouxISHIJOMCVG3662-15-96 09:11:00 3.50[facility] FptlpyiXGUFQFNMZC1764-12-10 09:11:0011.5[facility]annHEMATOLOGY 2019-02-25 09:11:0035.5[facility] IjgwraqNXFIZPVQIN9394-39-55 09:11:44329.5 [facility] ChrwrpkHZVQWYROAI5529-31-41 09:11:00 Test Item Value Reference Range Interpretation Comments MCH (test code = MCH) 32.7 pg 27.0-31.0 [facility] YhjqyzjBECYXRYJIN9105-31-46 09:11:0032.2[facility]annHEMATOLOGY 2019-02-25 09:11:0017.4[facility] UpsjuyrNKEMRCOKGQ0025-27-99 09:11:67325Dtbveosa IfgrsayGSFJBXAMVA1281-01-40 09:11:009.2[facility] HermannCHEM RDRJH4339-48-28 10:17:95545Aaynqndl HermannCHEM ZFSFS0375-39-53 10:17:0020[facility]annCHEM FQXKW4115-38-94 10:17:000.89[facility]annCHEM AJTJH7652-71-28 10:17:40070 [facility]annCHEM MUIRG1530-93-25 10:17:004.3[facility]annCHEM PANEL 2019-02-22 10:17:51540Fawkpdja HermannCHEM LNVWV6686-02-77 10:17:0027[facility]annCHEM HLUYA2993-16-86 10:17:0013.3[facility]annCHEM YHQXZ1374-85-00 10:17:008.9[facility]annCHEM YVGVH8559-81-45 10:17:0065[facility] BIOOTCESLN1637-28-26 10:17:0063.7[facility] DuwlmehYWPRTJLXHE7535-27-05 10:17:00 26.8[facility] SzuojnrTDNYFCHIBC2775-60-72 10:17:008.0[facility]annHEMATOLOGY 2019-02-22 10:17:000.4[facility] DtgfstsNNPRZVCYRI1155-85-20 10:17:001.1[facility] EndjtxxWGMNWMDMDQ2025-60-33 10:17:006.4[facility] FdtqwczFSHYJZXKKB6894-02-97 10:17:002.7[facility] HkjcrjdYUNZLLBVSZ9805-88-25 10:17:000.8[facility] XHTKZFJAAE7923-22-18 10:17:000.1[facility] RqyyulyXPQGLPPOAL6681-78-57 10:17:00 10.1[facility] LdjrnqkVUHWACJMCT2780-68-83 10:17:003.93[facility]annHEMATOLOGY 2019-02-22 10:17:0012.7[facility] LzgwgaiNLPXTRDKXA1970-39-26 10:17:0038.8[facility] GofpcszJLRPAXEQSL9386-57-19 10:17:0098.9[facility] PlfunjvHOKJDJOYPT8184-35-22 10:17:00 Test Item Value Reference Range Interpretation Comments MCH (test code = MCH) 32.4 pg 27.0-31.0 [facility] BuhjcboNGXWIEQEUL3457-13-66 10:17:0032.7[facility]annHEMATOLOGY 2019-02-22 10:17:0017.3[facility] IdkqxnsLWZOAIWDAC0988-37-84 10:17:57229Xnjapokx XnqetxqKNLDCBHHEW8819-66-64 10:17:009.8[facility] HermannCHEM WOPTN5776-10-69 10:59:0095[facility]annCHEM QUOVN6998-35-52 10:59:0018[facility]annCHEM LXJTR6639-57-74 10:59:000.77[facility]annCHEM VYYNE8564-92-43 10:59:27808 [facility]annCHEM THEMV4697-09-74 10:59:004.1[facility] HermannCHEM PANEL 2019-02-21 10:59:50386Igqwmwwu HermannCHEM LQGQL9751-32-57 10:59:0026[facility]annCHEM GUMWQ1179-33-59 10:59:008.5[facility]annCHEM YWTKI3163-30-81 10:59:0078[facility]annCHEM PGUKP8427-68-46 10:59:0012.1[facility]annCHEM QIEJW6156-96-04 10:59:002.0[facility]annCHEM UXNFC1908-03-56 10:59:003.5 [facility] MhfvphyFZVENIKJIXWX9673-05-05 09:46:0011.1[facility] HermannELECTROLYTES 2019-02-19 09:46:0073[facility] LbuhiycQLAGXVYHKPUN6239-25-88 09:46:0021[facility] KwotykhALYBHTUDPIQR3771-02-26 09:46:000.66[facility] ZggebpvLPBYDSRNGAIK5355-22-59 09:46:70124Cggtkgxr PiiiqamULHXASHERRIP8405-23-70 09:46:004.1[facility] EDJQBBBABXIE6826-62-88 09:46:22687Xvczzulh QdywgiyNEACTLUZZVTJ4995-15-04 09:46:0026[facility] UirksmqGPVRDUYUJSBV8835-85-13 09:46:008.6[facility] HHKTUXHKEZDD2911-85-67 09:46:002.1[facility] QghmxwjKOWLZUZVYNGS6088-69-93 09:46:003.0[facility] XgsepnyPVYHRXAAAGDV4138-82-72 09:46:0088[facility] JRUDWOEHZO4167-02-80 09:46:000.1[facility] HermannCHEM SWFFS3672-81-02 08:45:002.4 [facility]annCHEM RWLQF6105-62-18 08:45:005.0[facility]annHEMATOLOGY 2019-02-18 08:45:000.0[facility] MjzapwpGKSSRZAOPC9508-57-38 08:45:002.0[facility] SguthkfKUHTZCKAXW8248-37-41 08:45:000.0[facility] BvtnfzrBBJYZJLTDP9850-57-98 08:45:001[facility] TondnxoIQHYHHTMNW7278-98-89 08:45:00Normal (02/18/19 3:45 AM) [facility] GuvvxtnUAYNUHVCMK7573-80-44 08:45:001+ *ABN*(02/18/19 3:45 AM)[facility] TnslqykTWSYBHXZXX1454-41-63 02:24:0018.8[facility] GmwukqwVEKANKCDNR0028-75-70 02:24:00 Test Item Value Reference Range Interpretation Comments Roya AVILES (test code = Roya Couch 2200 1 TND) [facility] MddrnkqPWTOXQZLRZ8388-24-75 07:22:001.0[facility] HermannHEMATOLOGY 2019-02-16 07:22:002.0[facility] QydqmqsXWBIHGIOGQ2249-69-61 07:22:003.0[facility] PiruwzaITFVJPBBKA7419-08-26 07:22:000.0[facility] JjbhvxoZXQVFDUNAO0553-95-46 16:09:000.2[facility] ZvtifjoWOLXTCZEGR9806-30-72 16:09:000.0[facility] YAYZWDMXUO5462-21-20 16:09:001.0[facility] IpxdjqnRQZJGGFCFQ4924-75-76 16:09:001.0 [facility] QlhncxsCCYDCHIMPV4528-65-08 16:09:000.0[facility]annHEMATOLOGY 2019-02-15 16:09:002+ *ABN*(02/15/19 11:09 AM)[facility]annHEMATOLOGY 2019-02-15 16:09:001+ *ABN*(02/15/19 11:09 AM)[facility]annHEMATOLOGY 2019-02-13 10:40:000.4[facility] ZqpziztVIGIPHKNBF6165-79-17 10:40:001+ *ABN*(02/13/19 5:40 AM)[facility] FrgkismQVXEUHBXQQ5321-07-97 20:53:0096.6[facility] HermannCHEM MNWIS3612-25-84 07:43:001.6[facility] HermannCHEM IEFWP3244-10-37 01:51:002.4[facility] NtbosrkIMPOZWCXBO4572-48-58 01:51:0012.1[facility] TRIMETHOPRIM+SULFAMETHOXAZOLE:SUSC:PT:ISOLATE:ORDQN:YTT7377-96-82 18:43:00 Staphylococcus aureusMem[facility] TRIMETHOPRIM+SULFAMETHOXAZOLE:SUSC:PT:ISOLATE:ORDQN:FNV5667-12-41 18:43:00 Enterococcus SpeciesMem[facility] [place] TRIMETHOPRIM+SULFAMETHOXAZOLE:SUSC:PT:ISOLATE:ORDQN:OPR3262-66-89 18:43:00 Proteus mirabilisMemorial RuuwygsKMKGOUULOL5942-59-32 14:43:0014.3[facility] HermannCHEM LLLHO1497-43-71 03:40:001.6[facility] HermannCHEM XGBOA9186-79-16 14:04:002.1[facility] JxcjzoeGJZBHCNNBA3338-23-43 14:04:00Normal (02/09/19 9:04 AM) [facility] GtdovdbFZGZKNFWDG5889-62-95 14:04:00Normal (02/09/19 9:04 AM)[facility] HermannPARATHYROID GRENANV6997-01-48 14:04:001.06[facility] HermannPARATHYROID SUWBBHV2406-92-57 14:04:001.04[facility]annURINE AND UMQAU2071-66-35 08:55:00 Yellow *NA*(02/08/19 3:55 AM)[facility] XXGGT8649-77-33 08:55:00 Marked *ABN*(02/08/19 3:55 AM)[facility] ZSFTA0456-63-06 08:55:00 Test Item Value Reference Range Interpretation Comments UA Spec Grav (test code = UA Spec 1.022 1 Grav) [facility]UR[facility] MOOTT8206-50-28 08:55:00 Test Item Value Reference Range Interpretation Comments UA pH (test code = UA pH) 5.0 1 5.0-8.0 [facility] VZPSZ1174-56-27 08:55:00Negative *NA*(02/08/19 3:55 AM) [facility] NDVNP9197-82-84 08:55:00Negative (02/08/19 3:55 AM) [facility] PBAZI3753-47-25 08:55:00<1.0[facility] DZEXI0284-99-03 08:55:00Negative (02/08/19 3:55 AM)[facility] JZHVG3384-32-63 08:55:00Negative (02/08/19 3:55 AM)[facility] JKWFX0029-13-85 08:55:0013[facility] HDAMA4384-12-77 08:55:004 [facility] HBQNN4189-13-94 08:55:005[facility] CHEM 2019-02-08 08:55:0030[facility]UR[facility] TETJ5495-69-76 08:55:54120.00[facility] HermannCARDIAC HUSOMIV1922-79-20 06:59:00<0.02[facility] HermannHEMATOLOGY 2019-02-08 06:59:0095[facility] RlrcguoXSPZKILBPH4002-73-85 06:59:0081.9[facility] HermannPARATHYROID SNFSXBT7579-60-98 06:59:001.19[facility] HermannPARATHYROID SJCMAVR7719-43-17 06:59:001.17[facility] HermannCHEM THOZV7051-07-16 01:53:65173 [facility]annPARATHYROID LACXLSC3560-79-42 06:52:001.08[facility] PARATHYROID MSIVWAR7403-51-48 06:52:001.09[facility] HermannANEMIA AXSYH3713-92-16 19:48:32382Idgmxrch HermannANEMIA XXYBA0291-93-59 19:48:0016.9[facility] CHEM LWHAX6939-81-25 19:48:0013.0[facility] HermannCHEM EENSC3366-35-95 19:48:00 172.6[facility] WngthezVDTITQXLNB2565-06-64 19:48:0017.3[facility] HermannIMMUNOLOGY 2019-02-06 19:48:26650Plxvrswj HermannSPECIAL NAMCZYICA4524-34-75 19:48:008.5 [facility] HermannCARDIAC GPOGRSM5897-17-39 19:43:000.03[facility] HermannCARDIAC DPREENA5059-71-50 19:43:41989Kihvnqir HermannCARDIAC YPFRXVO4575-84-19 19:43:00 1.5[facility] HermannCARDIAC JIMQQQW0191-33-84 19:43:00 Test Item Value Reference Range Interpretation Comments CK MB Index (test code = CK MB Index) 0.8 1 <=2.5 [facility]annCHEM KVMHU7017-52-96 19:43:00 Test Item Value Reference Range Interpretation Comments B/C Ratio (test code = B/C Ratio) 16 1 6-25 [facility]annCHEM DZOVI4056-38-89 19:43:006.4[facility] HermannCHEM PANEL 2019-02-05 19:43:002.2[facility] HermannCHEM UWIWV1998-15-31 19:43:004.2[facility] HermannCHEM XYWCM5096-46-36 19:43:00 Test Item Value Reference Range Interpretation Comments A/G Ratio (test code = A/G Ratio) 0.5 1 0.7-1.6 [facility]annCHEM QNITN3392-58-69 19:43:35946Mxownnns HermannCHEM PANEL 2019-02-05 19:43:99536Xogoffzr HermannCHEM BBCSG2774-10-49 19:43:000.6[facility] HermannCHEM ZROQK5757-10-21 19:43:40110Bugmszhk HermannCHEM BQKNO1530-47-01 19:43:006.5[facility]annUR[facility] AND PEHHM6225-15-63 19:43:00Dark Yellow *NA*(02/05/19 2:43 PM)[facility] AND ADOXU7828-83-39 19:43:00Marked *ABN*(02/05/19 2:43 PM)[facility] AND PXTQL6336-46-52 19:43:00 Test Item Value Reference Range Interpretation Comments UA Spec Grav (test code = UA Spec 1.022 1 Grav) [facility] XUHMJ2139-82-68 19:43:00 Test Item Value Reference Range Interpretation Comments UA pH (test code = UA pH) 6.0 1 5.0-8.0 [facility] UUNVP7093-84-76 19:43:00Negative *NA*(02/05/19 2:43 PM) [facility] IKQSX4241-19-00 19:43:00Negative (02/05/19 2:43 PM) [facility] RLMGG2133-34-36 19:43:002.0[facility] ZUWRA6151-22-82 19:43:00Negative (02/05/19 2:43 PM)[facility] STOOL 2019-02-05 19:43:00Negative (02/05/19 2:43 PM)[facility] STOOL 2019-02-05 19:43:004[facility]annUR[facility] AND RUVNX6288-56-25 19:43:002[facility] GabkrbcPXZMPAFXGJ9286-64-85 10:01:0012.0[facility] BjddojpKPLVGNWIEN6886-05-94 10:01:002.2[facility] BmnxdekAHAECZGBQZ9291-01-58 10:01:000.8[facility] SYSOHCFUWY9822-87-27 10:01:0078.0[facility] CfgfzbkKKINKBUEHP8546-60-24 10:01:00 0.0[facility] ZufuieaAFTEXDANVA9474-69-35 10:01:0014.0[facility] HermannHEMATOLOGY 2019 10:01:005.0[facility] PdyatlkJOEGUBHLPL7837-06-71 10:01:001.0[facility] GfbkwezSXJBDYWRMV6884-42-17 10:01:002.0[facility] EezwqjySDKOAEUAFZ8565-28-14 10:01:000.0[facility] NohxopyNBYWTBCKOO1729-97-75 10:01:003[facility] XRPVIGDUNJ9402-06-70 10:01:001+ *ABN*(01/09/19 5:01 AM)[facility]annHEMATOLOGY 2019 10:01:001+ *ABN*(01/09/19 5:01 AM)[facility] MpzbvvuGCQPBMBESH1654-26-90 10:01:00Moderate *ABN*(01/09/19 5:01 AM)[facility] GygdneaIFSKRIXABZ6154-58-54 10:01:0015.4[facility] JryggxtYHXGEPYEJH3412-78-64 10:01:002.79[facility] IULMCHNTWV1237-63-37 10:01:009.6[facility] IzyppslUQTVYKIHSM3560-62-46 10:01:00 29.3[facility] UyrziwpIJXEUQWWEC2067-13-01 10:01:44630.8[facility]annHEMATOLOGY 2019 10:01:00 Test Item Value Reference Range Interpretation Comments MCH (test code = MCH) 34.5 pg 27.0-31.0 [facility] MtuaomtJNQAHGNZWH5646-45-14 10:01:0032.9[facility]annHEMATOLOGY 2019 10:01:0022.7[facility] XaqwpvyJCNPFQRGAI8391-46-26 10:01:72823Vguutllh IboaspaHXNEZJADGL2995-37-12 10:01:009.8[facility] HermannCHEM JWTIV4369-23-31 10:31:0079[facility] HermannCHEM EFPEU1041-97-19 10:31:0027[facility] HermannCHEM RLZRG9342-87-39 10:31:000.77[facility]annCHEM VTHGA7235-97-84 10:31:56704 [facility]annCHEM LDCDY3938-47-33 10:31:004.2[facility] HermannCHEM PANEL 2019-01-07 10:31:04450Wqbrhutx HermannCHEM KTNJO8252-87-68 10:31:0028[facility] HermannCHEM DDERQ3516-67-93 10:31:0012.2[facility] HermannCHEM NZDDJ6025-74-87 10:31:008.6[facility]annCHEM ADNJZ0038-02-05 10:31:0078[facility]annCHEM VHFPO9955-28-87 10:31:002.1[facility] HermannCHEM VGRWN9790-51-90 10:31:003.7 [facility] AlsmanxWLWMXGOFXB8052-76-32 10:31:0014.2[facility] HermannHEMATOLOGY 2019-01-07 10:31:006.1[facility] QdaelkiJMCXMKMXBB4975-95-90 10:31:000.4[facility] HayylklFDWWZVQMOK5060-05-49 10:31:000.2[facility] VexddtsUSVCWZNWMV3282-18-33 10:31:0067.0[facility] JqwgrpdSPZIEHHYDK8749-25-54 10:31:000.0[facility] GNSFBMVBGX8866-32-79 10:31:0029.0[facility] BdyirgaDQLCLGDKOV9046-52-02 10:31:00 2.0[facility] LqzmwcwLKMBYMUUZI9124-77-68 10:31:001.0[facility]annHEMATOLOGY 2019-01-07 10:31:001.0[facility] HzaavbaMREVVFOXQM6473-45-00 10:31:000.0[facility] QqauvvxDOMLLZKUNM2556-56-87 10:31:002[facility] HexolqyLVTWLODVMP8733-54-46 10:31:00Normal (01/07/19 5:31 AM)[facility] VxuaivgJZBSWPUDKF5237-02-35 10:31:001+ *ABN*(01/07/19 5:31 AM)[facility] NmzodtwKEDSLPQAAD3724-86-64 10:31:001+ *ABN*(01/07/19 5:31 AM)[facility] OabnfcwPNKLGGKHWK0130-07-00 10:31:00Moderate *ABN*(01/07/19 5:31 AM)[facility] PwsvcdvXDWOWYKXEM0386-79-36 10:31:0021.2[facility] WbqcfnkTPJIMIMOWD5911-32-54 10:31:002.83[facility] XcoivfzMGRBCIAUWZ6250-33-61 10:31:009.6[facility] YmfovgrPZZPKDFJNF3919-58-75 10:31:0029.6[facility] PUETZVPXCF9016-94-11 10:31:69861.5[facility] MqgixsgBMNSRMNMDF5444-42-63 10:31:00 Test Item Value Reference Range Interpretation Comments MCH (test code = MCH) 33.9 pg 27.0-31.0 [facility] YbfayfdINIZGMIGWP3190-44-91 10:31:0032.4[facility]annHEMATOLOGY 2019-01-07 10:31:0019.9[facility] QafptdgXCOWKOVJJP5200-69-97 10:31:96208Iomijcia TtwajxePAJZHUDLOF6589-29-62 10:31:0010.6[facility] HermannCHEM WKGWU4901-93-15 19:41:01274Bsrbfips HermannCHEM EGZRT0406-41-21 19:41:0027[facility] HermannCHEM GODFP9176-82-31 19:41:001.34[facility] HermannCHEM KKICM5615-23-11 19:41:71961 [facility]annCHEM HOPXC3203-64-31 19:41:004.0[facility] HermannCHEM PANEL 2019-01-06 19:41:96740Vcfnfudt HermannCHEM AWQGF9585-27-42 19:41:0027[facility] HermannCHEM KLORE4806-47-52 19:41:008.3[facility] HermannCHEM LMDWO9635-93-58 19:41:0040[facility]annCHEM LGTEU2871-17-37 19:41:0016.0[facility] ZUGMTBSEXL8560-68-31 19:41:0084.9[facility] FlodsbwRKDSWCDXLF6570-99-47 19:41:00 11.4[facility] ChcgxorNURGXINYZU9159-14-54 19:41:002.9[facility]annHEMATOLOGY 2019-01-06 19:41:000.2[facility] TlzlaakNCCAPAUNOD7502-96-07 19:41:000.6[facility] AdptdzwLEHRVFJCUP4762-55-45 19:41:0012.0[facility] ZvdgjfxJKWRYIGFJR8581-85-69 19:41:001.6[facility] XfueefuUPGAHYXJOE0352-03-12 19:41:000.4[facility] OASZBEYFRA6217-81-99 19:41:000.1[facility] OrhqonqPTQDUHIZGI9176-49-89 19:41:001+ *ABN*(01/06/19 2:41 PM)[facility] KbuzwdbEZVADJAERT6828-63-88 19:41:0014.1[facility] JhdaukdOZWHFKODOJ9196-44-38 19:41:002.86[facility] KmhpyktFAUVPOLTEQ8472-13-34 19:41:009.7[facility] AhjxcolOFMBMNPWUG8172-61-07 19:41:0029.5[facility] FWPFBQXPWL0088-94-62 19:41:66446.3[facility] KszkbskTRMHPMCDZT1996-48-44 19:41:00 Test Item Value Reference Range Interpretation Comments MCH (test code = MCH) 33.8 pg 27.0-31.0 [facility] TlyeduuXUISTGSGKF0626-65-47 19:41:0032.7[facility] HermannHEMATOLOGY 2019-01-06 19:41:0020.1[facility] DlikzcqKPDRIGAFIA9148-87-08 19:41:21891Lbsdvlzv BegferiREBFWSBQDL2288-20-61 19:41:0010.2[facility] HermannCARDIAC ENZYMES 2019-01-04 17:50:0098[facility] EqvpqbaMCTLYOHBXCON4202-41-20 17:50:0012.0[facility] NlkufqsJHILRGDMSUIQ1450-99-06 17:50:0083[facility] SnpqqnaZJXEGIWJLOQD5601-50-21 17:50:0023[facility] QfabwjvKALNEVDFZQLV4211-70-26 17:50:000.88[facility] DVPGKIVNWYXM3237-64-50 17:50:48312Tfvogadn NwrxypqFKYXLYFDNGIJ3820-90-78 17:50:004.0[facility] DlpibpsXLAXQQMDLUTY4487-21-41 17:50:74790Dqmeapoz [place] LKDBNXCWKUFM2545-08-53 17:50:0025[facility] BrainxlWMZAWRHCGQEQ5021-49-45 17:50:00 8.5[facility] GhheangTGBSFQPWSEGJ8187-62-25 17:50:0066[facility] HermannHEMATOLOGY 2019-01-04 17:50:000.2[facility] VxbrhhlOPZMAAFMEG0092-48-09 17:50:003.0[facility] XgsjucaQCPZACZHFF5343-18-95 17:50:001.0[facility] LyslucwBYBHUEWMPV5721-16-11 17:50:001.0[facility] ZtwhmkjQFZFBBUVNL0680-67-18 17:50:000.0[facility] EDHNMVPQOT7950-84-03 17:50:009[facility] MfqwufgDMPOEIFJCC3734-33-64 17:50:00 Normal (01/04/19 12:50 PM)[facility] GxkjnnfUJABZRWNWP1288-06-12 17:50:001+ *ABN*(01/04/19 12:50 PM)[facility] WqacwalGJDXFEZHHR7786-42-42 06:25:000.1[facility] WoyuzjrLFJUEEGPTW5773-47-46 06:25:000.7[facility] QgmnupoJRHJJZLXLJ4392-02-22 06:25:000.2[facility] HermannPARATHYROID MSGGCNE8498-68-91 06:25:001.08[facility] HermannPARATHYROID ORWGNNA8503-75-29 06:25:001.04[facility] HermannHEMATOLOGY 2018-12-31 07:09:003.0[facility] HermannCHEM FBFIC8364-97-44 09:20:002.1[facility] HermannCHEM OXHBL4708-89-51 09:20:002.7[facility] TqvdrucGRIEKFPYLE7118-32-48 09:20:18433Vmvygrbc CqinkneBIINBMNJYS9870-26-28 09:20:000.1[facility] PARATHYROID LSHJCIQ0773-91-71 09:20:001.08[facility] HermannPARATHYROID PROFILE 2018-12-30 09:20:001.10[facility] HermannCARDIAC YXOWMIG1743-74-88 05:04:000.09 [facility] HermannCHEM OKRDO1840-83-35 05:04:002.0[facility] HermannCHEM PANEL 2018-12-29 05:04:002.4[facility] KickkrbBFURNYYQNU4610-20-54 05:04:00Normal (12/29/18 12:04 AM)[facility] TumdhnwNMMWAHUILX5948-07-68 05:04:00 Test Item Value Reference Range Interpretation Comments INR (test code = INR) 1.02 1 0.85-1.17 [facility] FwvuuenBRSJQGPJJT5446-04-90 05:04:00 Test Item Value Reference Range Interpretation Comments PT (test code = PT) 13.2 s 12.0-14.7 [facility] ZxsvztwSSMWZCBPOC9952-38-63 05:04:00 Test Item Value Reference Range Interpretation Comments PTT (test code = PTT) 31.0 s 22.9-35.8 [facility] FuoqhflANAHHUFAIL3170-54-96 05:04:07226Mfeqrrun HermannPARATHYROID AAQRYCL0914-30-12 05:04:001.10[facility] HermannPARATHYROID GBPVBNB9216-28-74 05:04:001.11[facility] HermannCARDIAC WACIRKN4291-32-03 07:31:000.11[facility]annCHEM XAAVR9096-56-95 07:31:004.7[facility]annCHEM VFHAN2457-26-64 07:31:002.8[facility] HermannCHEM XIQVM7669-64-87 07:31:0036[facility]annCHEM BQSPZ6231-05-88 07:31:0018[facility]annCHEM OZAFL4229-89-62 07:31:0073 [facility]annCHEM DTVRX4645-93-31 07:31:000.7[facility]annCHEM PANEL 2018-12-28 07:31:000.2[facility]annCHEM CVNJP5855-53-43 07:31:000.5[facility]annCHEM QOVAD7121-44-79 07:31:001.9[facility]annCHEM SRZAZ0895-53-24 07:31:00 Test Item Value Reference Range Interpretation Comments A/G Ratio (test code = A/G Ratio) 1.5 1 0.7-1.6 [facility] DrqymyaHWMAEHVXYH3014-73-89 07:31:001.0[facility] HermannHEMATOLOGY 2018-12-28 07:31:00 Test Item Value Reference Range Interpretation Comments INR (test code = INR) 1.13 1 0.85-1.17 [facility] DhrizthRXTKXTYKIQ3360-31-32 07:31:00 Test Item Value Reference Range Interpretation Comments PT (test code = PT) 14.3 s 12.0-14.7 [facility] DwapwqxKRIRJOPSGT7513-03-96 07:31:00 Test Item Value Reference Range Interpretation Comments PTT (test code = PTT) 35.5 s 22.9-35.8 [facility]annSPECIAL IMXSOEACK3587-81-71 07:31:0011.1[facility]annURINE AND AHFWP1164-99-11 11:12:00Negative (12/27/18 6:12 AM)[facility]annCARDIAC TWTMVUY9305-63-23 05:26:000.06[facility]annCHEM UUNPR5931-90-27 05:26:004.7 [facility]annCHEM KNIAY5660-07-90 05:26:003.5[facility]annCHEM PANEL 2018-12-27 05:26:0030[facility]annCHEM PKALS4232-31-88 05:26:0011[facility]annCHEM LUIZC7843-73-25 05:26:0055[facility]annCHEM RTCCP0179-88-38 05:26:000.5[facility]annCHEM JKQPD8079-05-04 05:26:000.1[facility]annCHEM SVWFJ2634-64-25 05:26:000.4[facility]annCHEM VOGCS4281-62-18 05:26:001.2 [facility] HermannCHEM EMBTC1079-87-12 05:26:00 Test Item Value Reference Range Interpretation Comments A/G Ratio (test code = A/G Ratio) 2.9 1 0.7-1.6 [facility] CenterBkanyjhRNWAWGBVNC1628-13-72 05:26:00 Test Item Value Reference Range Interpretation Comments PT (test code = PT) 15.8 s 12.0-14.7 [facility] CenterWxbsaaxBRQVDZWLNV1967-85-21 05:26:00 Test Item Value Reference Range Interpretation Comments INR (test code = INR) 1.29 1 0.85-1.17 [facility]HKMRBGHZUT7901-93-63 05:26:00 Test Item Value Reference Range Interpretation Comments PTT (test code = PTT) 37.6 s 22.9-35.8 [facility] CenterQvxezloEPLFDFGBQW6147-37-49 05:26:88361Yjiotkwm HermannCHEM PANEL 2018-12-26 05:48:005.1[facility]annCHEM MGBPW7380-42-61 05:48:003.1[facility]annCHEM OQDBN7564-41-89 05:48:002.0[facility]annCHEM VZXKE1773-97-06 05:48:00 Test Item Value Reference Range Interpretation Comments A/G Ratio (test code = A/G Ratio) 1.6 1 0.7-1.6 [facility] HermannCHEM RTBND1005-01-38 05:48:0051[facility]annCHEM PANEL 2018-12-26 05:48:0016[facility] HermannCHEM AFEKB9649-67-03 05:48:0088[facility]annCHEM JZQLD1419-94-64 05:48:000.4[facility]annCHEM WFIBC0579-47-06 05:48:000.2[facility]annCHEM VBUYH8106-66-99 05:48:000.2[facility]annURINE AND HEWAP8629-45-41 19:16:00Light Yellow *NA*(12/25/18 2:16 PM)[facility] AND KTRTN2466-00-08 19:16:00Slight *ABN*(12/25/18 2:16 PM)[facility] GYMFQ9438-32-57 19:16:00 Test Item Value Reference Range Interpretation Comments UA Spec Grav (test code = UA Spec 1.013 1 Grav) [facility] [id number] 19:16:00 Test Item Value Reference Range Interpretation Comments UA pH (test code = UA pH) 5.0 1 5.0-8.0 [facility] [id number] 19:16:00Negative *NA*(12/25/18 2:16 PM) [facility] [id number] 19:16:00Negative (12/25/18 2:16 PM) [facility] KQYVT3728-17-38 19:16:00<1.0[facility]UR[facility] AND NGTQA8857-74-74 19:16:00Negative (12/25/18 2:16 PM)[facility] PIMGA5287-71-25 19:16:00Negative (12/25/18 2:16 PM)[facility] PFKUE1845-96-16 19:16:004[facility]UR[facility] AND PRQGJ1151-42-74 19:16:001 [facility]annCHEM QJBLE0087-58-59 08:58:001.8[facility] HermannHEMATOLOGY 2018-12-25 08:58:00 Test Item Value Reference Range Interpretation Comments Thrombin Time (test code = Thrombin 17.7 s 15.0-21.2 Time) [facility] ZbnysdjCXFMNSBZNO1879-29-76 08:58:002.84[facility] HermannBACTERIAL - MBTGTBXL7533-03-45 05:22:00Negative (12/25/18 12:22 AM)[facility]annCHEM PANEL 2018-12-25 05:22:002.3[facility] HermannDRUG ZRGWCK0988-48-32 05:22:00Negative *NA*(12/25/18 12:22 AM)[facility]annDRUG ILGDIM2422-43-36 05:22:00Negative *NA*(12/25/18 12:22 AM)[facility]annDR[facility] OJRXDU8513-39-99 05:22:00Positive *ABN*(12/25/18 12:22 AM)[facility]annDR[facility] RJPVKQ8958-58-94 05:22:00Negative *NA*(12/25/18 12:22 AM)[facility]annDR[facility] QXLRMS9794-67-71 05:22:00Negative *NA*(12/25/18 12:22 AM)[facility]annDR[facility] TIZVTS0885-22-54 05:22:00Positive *ABN*(12/25/18 12:22 AM)[facility]annDR[facility] AZBDFX6872-78-73 05:22:00Negative *NA*(12/25/18 12:22 AM)[facility]annDRUG UULNDH2985-60-81 05:22:00See Note (12/25/18 12:22 AM)[facility] CdigmnaEIPKJGRCUB8362-51-97 05:22:00Negative 7(12/25/18 12:22 AM)[facility] FzjicbcNUFOTDKVRC2825-85-28 05:22:00 Test Item Value Reference Range Interpretation Comments Pat Od Value (test code = Pat Od 0.215 1 Value) [facility] EurtlchKVKLXUAVOP7085-82-61 05:22:00 Test Item Value Reference Range Interpretation Comments Pos CO Value (test code = Pos CO 0.400 1 Value) [facility]UR[facility] WIRGA1947 05:22:00Amber *ABN*(12/25/18 12:22 AM) [facility] KCGLY4701-54-67 05:22:00Slight *ABN*(12/25/18 12:22 AM) [facility] [id number] 05:22:00 Test Item Value Reference Range Interpretation Comments UA Spec Grav (test code = UA Spec 1.029 1 Grav) [facility] YWQKC6497-13-02 05:22:00 Test Item Value Reference Range Interpretation Comments UA pH (test code = UA pH) 5.0 1 5.0-8.0 [facility] KZADD3874-24-12 05:22:00Negative *NA*(12/25/18 12:22 AM)[facility]UR[facility] [id number] 05:22:00Moderate *ABN*(12/25/18 12:22 AM)[facility]UR[facility] AND [id number] 05:22:004.0[facility] AND [id number] 05:22:00Negative (12/25/18 12:22 AM)[facility]INE AND HLXVV9803-00-84 05:22:00Negative (12/25/18 12:22 AM)[facility] AND PHXJQ8854-11-14 05:22:003[facility] JYDCP5497-19-94 05:22:0037[facility] XKBDR3575-06-97 05:22:0023[facility]INE AND WMARI0625-67-46 05:22:001[facility] VANCOMYCIN:SUSC:PT:ISOLATE:ORDQN:FBP3334-54-61 05:22:00Staphylococcus aureus [facility] WVZROYR0457-79-39 23:54:00Negative 5(12/24/18 6:54 PM) [facility]annCARDIAC EZYIKOP6773-12-85 23:54:0062[facility]annCHEM PANEL 2018-12-24 23:54:0027.0[facility]annCHEM TJHXV8733-79-95 23:54:005.0[facility]annCHEM VQUEW8360-41-08 23:54:0011.80[facility]annCHEM LMZCW8863-13-42 16:13:0076[facility]annCHEM GEURE6242-05-27 16:13:000.79[facility]annCHEM VAFSF6112-85-21 16:13:10241Ocofudan HermannCHEM BMTOM3939-24-10 16:13:004.2 [facility]annCHE[facility] WKGQL2013-56-18 16:13:0019[facility]annCHEM PANEL 2018-11-29 16:13:009.3[facility]annCHEM IWATM0066-13-06 16:13:90404Rnambmux HermannCHEM GHYIU0300-94-41 16:13:0030[facility]annCHEM FEJRA0456-19-05 16:13:57388Htrdkile HermannCHEM RSFZT5135-33-56 16:13:0010.2[facility]INE AND MCUHP1595-77-60 15:09:00None Seen (11/29/18 10:09 AM)[facility]INE AND COHIV9838-94-79 15:09:000.2[facility] SYKWB1373-16-71 15:09:00Negative (11/29/18 10:09 AM)[facility] JPTPI3224-44-69 15:09:00Negative (11/29/18 10:09 AM)[facility] OZXAX6966-44-06 15:09:00Small *ABN*(11/29/18 10:09 AM)[facility] ALTFV4582-60-83 15:09:00Negative (11/29/18 10:09 AM)[facility] HKWUN1320-16-21 15:09:00 Test Item Value Reference Range Interpretation Comments UA pH (test code = UA pH) 5.5 1 5.0-8.0 [facility] HDMHS3922-60-54 15:09:00Negative *NA*(11/29/18 10:09 AM) [facility] PFRQV5207-44-50 15:09:00Negative (11/29/18 10:09 AM) [facility] XLWMZ8095-25-05 15:09:00Yellow *NA*(11/29/18 10:09 AM) [facility] YVUPB5929-02-89 15:09:00Slight Cloudy (11/29/18 10:09 AM)[facility] HCOOI7496-47-63 15:09:00>=1.030 *ABN*(11/29/18 10:09 AM)[facility]] CMP W/OOFH6797-74-60 12:32:00 Test Item Value Reference Range Interpretation Comments GLUCOSE; Above 313 mg/dl 65-139 Non-fasting r eference High Threshold interval (test code = 1547-9) UREA NITROGEN 19 mg/dl 7-25 N (BUN) (test code = UREA NITROGEN (BUN)) CREATININE (test 0.80 mg/dl 0.60-0.93 N For patient s >49 years code = of age, the ref erence CREATININE) limitfor Creati nine is approximately 1 3% higher for peopleidentifie d as -Rosette n. eGFR NON- 74 {ML/MIN/1.7} > OR = 60 N LUXEMBOURGER (test code = eGFR NON-) eGFR 86 {ML/MIN/1.7} > OR = 60 N LUXEMBOURGER (test code = eGFR ) BUN/CREATININE NOT APPLICABLE 6-22 RATIO (test code = BUN/CREATININE RATIO) SODIUM (test code 134 mmol/L 135-146 = SODIUM) POTASSIUM (test 4.0 mmol/L 3.5-5.3 N code = POTASSIUM) CHLORIDE (test 100 mmol/L 98-110 N code = CHLORIDE) CARBON DIOXIDE 26 mmol/L 20-32 N (test code = CARBON DIOXIDE) CALCIUM (test 8.5 mg/dl 8.6-10.4 code = CALCIUM) PROTEIN, TOTAL 6.3 g/dl 6.1-8.1 N (test code = PROTEIN, TOTAL) ALBUMIN (test 3.0 g/dl 3.6-5.1 code = ALBUMIN) GLOBULIN (test 3.3 {G/DL CALC} 1.9-3.7 N code = GLOBULIN) ALBUMIN/GLOBULIN 0.9 {CALC} 1.0-2.5 RATIO (test code = ALBUMIN/GLOBULIN RATIO) BILIRUBIN, TOTAL; 0.5 mg/dl 0.2-1.2 N Normal (test code = 28382-8) ALKALINE 156 u/l 33-130 PHSPHATASE (test code = ALKALINE PHSPHATASE) AST; Normal (test 34 u/l 10-35 N code = 1916-6) ALT; Above High 71 u/l 6-29 SPECIMEN REC EIVED DATE Threshold (test AND TIME: [id number] code = 1742-6) [facility]] CBC (INCLUDES DIFF/PLT)2018-11-18 12:32:00 Test Item Value Reference Range Interpretation Comments WHITE BLOOD CELL 12.2 3.8-10.8 COUNT (test code = {Thousand/u} WHITE BLOOD CELL COUNT) RED BLOOD CELL 4.89 3.80-5.10 N COUNT (test code = {Million/uL} RED BLOOD CELL COUNT) HEMAGLOBIN; Normal 15.4 g/dl 11.7-15.5 N (test code = 98729-9) HEMATOCRIT; Above 45.8 % 35.0-45.0 High Threshold (test code = 4544-3) MCV; Normal (test 93.7 fL 80.0-100.0 N code = 787-2) MCHC; Normal (test 33.6 g/dl 32.0-36.0 N code = 15792-9) RDW; Normal (test 14.4 % 11.0-15.0 N code = 788-0) PLATELET COUNT; 177 140-400 N Normal (test code {Thousand/u} = 777-3) MPV; Normal (test 11.0 fL 7.5-12.5 N code = 40090-7) ABSOLUTE 46675 5989-9777 NEUTROPHILS (test {cells/uL} code = ABSOLUTE NEUTROPHILS) ABSOLUTE 0608 425-9394 N LYMPHOCYTES (test {cells/uL} code = ABSOLUTE LYMPHOCYTES) ABSOLUTE MONOCYTES 207 {cells/uL} 200-950 N (test code = ABSOLUTE MONOCYTES) ABSOLUTE 12 {cells/uL} 15-500 EOSINOPHILS (test code = ABSOLUTE EOSINOPHILS) ABSOLUTE BASOPHILS 24 {cells/uL} 0-200 N (test code = ABSOLUTE BASOPHILS) NEUTROPHILS (test 84.4 % N code = NEUTROPHILS) LYMPHOCYTES (test 13.6 % N code = LYMPHOCYTES) MONOCYTES; Normal 1.7 % N (test code = 08532-6) EOSINOPHILS; 0.1 % N Normal (test code = 14531-3) BASOPHILS; Normal 0.2 % N (test code = 18815-9) COMMENT(S) (test See Comment Review of p eripheral code = COMMENT(S)) smear con firmsautomated results.SPECIME N RECEIVED DATE A ND TIME: [facility] views [id number] 10:03:00 PROCEDURE: Chest Radiograph.Clinical Indication: Pneumonia.Comparison: Chest radiograph 09/17/2018.FINDINGS:The chest shows minimal subsegmental atelectasis at the left lung base. Nofocal consolidationis identified. There is left-sided BANANA LOADER shunt tubing. Thereare calcified granulomata in the upper lobes.The cardiac silhouette is upper limits of normal in size. Degenerative changeinvolves the thoracic spine and shoulders. An old distal right claviclefracture is suspected.IMPRESSION:1. Minimal left lower lobe subsegmental atelectasis.SL:[id number]--Xhzm by: Eleazar Hamilton MDDictated Date/time: 11/18/18 10:49Electronically Signed by: Eleazar Hamilton MD 11/18/1909:52FINAL REPORTUnAcadia Healthcare Bone Density [employer] [id number] 10:53:00BONE DENSITY ASSESSMENT: 10/21/2018CLINICAL DATA: Post menopausal and clinical risk for osteoporosis. M81.0 Agerelated osteoporosis without current pathological fracture. /M81.0 Age-Related Osteoporosis Without Current Pathological FractureFINDINGS:Bone density evaluation was performed 10/21/2018 on the right femur neck usinga Hologic unit. The BMD average for the exam is 0.699 g/cm2. The T-scoreis-1.40 and the Z- score is 0.50. This matches the World Health Organization'scriteria for osteopenia and places the patient at a medium risk for fracture. An additional bone density evaluation was performed 10/21/2018 on the leftfemur neck using a Hologic unit. The BMD average for the exam is 0.630 g/cm2.The T-score is -2.00 and the Z-score is -0.10. This matches the World HealthOrganization's criteria for osteopenia and places the patient at a medium riskfor fracture. An additional bone density evaluation was performed 10/21/2018 on the righttotal femur area using a Hologic unit. The BMD average for the exam is 0.818 g/cm2. The T-score is -1.00 and the Z-score is 0.60. This matches the WorldHealth Organization's criteria for normal bone density and places the patientwithin normal limits of fracture risk. An additional bone density evaluation was performed 10/21/2018 on the lefttotal femur area using a Hologic unit. The BMD average for the exam is 0.851 g/cm2. The T-score is -0.70 and the Z-score is 0.90. This matches the WorldHealth Organization's criteria for normal bone density and places the patientwithin normal limits of fracture risk. An additional bone density evaluation was performed 10/21/2018 on the AP L2- H4dadayq of spine using a Hologic unit. The BMD average for the exam is 1.097 g/cm2. The T-score is 0.20 and the Z-score is 2.40. This matches the WorldHealth Organization's criteria for normal bone density and places the patientwithin normal limits of fracture risk. FRAX 10 year probability of major osteoporotic fracture is 10% and hip fractureis 1.9%. IMPRESSION: OSTEOPE NIAPatient is at medium risk for fracture. Patient consult w/primary careprovider is recommended.This exam was interpreted at [id number] for CRISPIN Riojas 15. Betzy Caba M.D. 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 [place]--Read by: Betzy Caba MDDictated Date/time: 10/21/18 12:45Electronically Signed by: Betzy Caba MD 10/22/1911:45FINAL REPORTUnM[facility] PwaoeqlhkbEXLRVNRREF4569-88-18 15:20:0010.6[facility] CqmotukZWPQXEYYPI7150-64-28 15:20:0091.5[facility] UhwxratPHTNQFACLZ7975-32-11 15:20:0042.9[facility] CVMJHWEISH8079-14-43 15:20:00 Test Item Value Reference Range Interpretation Comments MCH (test code = MCH) 31.0 pg 27.0-31.[address] [facility] CenterNevheglGFADNBJQPF8709-56-59 15:20:0014.1[facility]annHEMATOLOGY 2018-09-23 15:20:0033.8[facility] RtnifsbLTIDTOYQNJ3666-00-71 15:20:21874Wyprbsrr AsqpcncTSXFOMWXNN2258-24-21 15:20:0014.5[facility] MjsxgljHNDLKAZZRI7229-15-76 15:20:0010.8[facility] ZsqkbsqMMGNSSSAYO8093-37-29 15:20:004.69[facility] XRBJRWGALS8400-52-05 15:20:000.1[facility] JuasgddXUBXPPSKUP8381-18-91 15:20:00 70.7[facility] RzltzkuTDETONERFP6273-31-43 15:20:0021.8[facility]annHEMATOLOGY 2018-09-23 15:20:002.4[facility] ZclpxuvZRMURUZXYG8904-31-86 15:20:007.6[facility] PtegddrMWHPDHOQCA3722-32-88 15:20:000.7[facility] UycudwzMBVRBNEFTK2630-36-82 15:20:006.7[facility] YnjiqmhYULSQAQISJ2586-52-60 15:20:000.3[facility] SGHLIGAXVH5131-77-89 15:20:000.5[facility] HermannCHEM NZUPF9716-51-46 10:38:002.2 [facility]annCHEM LDIYG9524-20-79 10:38:003.0[facility]annCHEM PANEL 2018-09-23 10:38:0069[facility] HermannCHEM WMSXR4545-76-08 10:38:0028[facility] HermannCHEM BYYFX9636-19-43 10:38:70075Cokyykqr HermannCHEM HCEYY3798-68-20 10:38:003.8[facility] HermannCHEM AZKOK8283-83-99 10:38:32827Arfpmkbp HermannCHEM LLUAX8119-04-57 10:38:009.8[facility]annCHEM IKMSN6169-86-58 10:38:008.1 [facility]annCHEM GHETH8197-19-46 10:38:0023[facility]annCHEM PANEL 2018-09-23 10:38:000.86[facility] HermannCHEM WQLDL6251-40-63 10:38:0043[facility] ZbhaibgAHETTZUQFJ5581-23-78 10:38:0014.6[facility] YhglneuKORONIWJCW1792-75-24 10:38:0044.7[facility] ToaoqhgOCKXNTPSHG5479-77-88 10:38:004.85[facility] HQUSFOPFKK5405-86-56 10:38:0014.1[facility] ZbuuixvHAKMKVDLFC7196-66-18 10:38:00 10.9[facility] TcqbhsiTXGTOWKUCW2077-60-11 10:38:0014.2[facility] HermannHEMATOLOGY 2018-09-23 10:38:32717Syfkfyvy UmpfbhlZXZNBGHXQB8100-12-35 10:38:0092.2[facility] SoclyoyYZXXUDDHQA4591-24-96 10:38:00 Test Item Value Reference Range Interpretation Comments MCH (test code = MCH) 30.1 pg 27.0-31.0 [facility] BtxtakwSHLXLEHBPX2874-43-97 10:38:0032.6[facility] HermannPARATHYROID WFRUZJE2532-72-48 10:38:001.05[facility] HermannPARATHYROID HDCONBB0418-87-84 10:38:001.00[facility] HermannCHEM DSDKH9504-93-46 06:22:000.6[facility] HermannCHEM HCPOI2223-48-02 06:22:0035[facility]annCHEM FJEKH7866-50-22 06:22:0095 [facility]annCHEM PFJDU8833-88-53 06:22:0047[facility]annCHEM PANEL 2018-09-22 06:22:0052[facility] HermannCHEM NVYER4183-64-34 06:22:002.3[facility] HermannCHEM MWNJR1290-89-96 06:22:007.1[facility] HermannCHEM HJWYE9137-51-71 06:22:0026[facility] HermannCHEM VMILX9735-61-07 06:22:008.1[facility] HermannCHEM DEBZY5429-22-75 06:22:86303Xlfnoiox HermannCHEM VHRKR7595-33-34 06:22:004.3 [facility]annCHEM KVNYG9964-20-74 06:22:71053Mfshczys HermannCHEM PANEL 2018-09-22 06:22:001.07[facility] HermannCHEM SHYTN2646-17-27 06:22:95191Ftrfgdpg HermannCHEM TOCGV7430-37-89 06:22:0029[facility] HermannCHEM SJBOQ4934-82-31 06:22:004.8[facility] HermannCHEM QRAOW8191-50-60 06:22:00 Test Item Value Reference Range Interpretation Comments A/G Ratio (test code = A/G Ratio) 0.5 1 0.7-1.6 [facility]annCHEM XCGZM6703-13-38 06:22:00 Test Item Value Reference Range Interpretation Comments B/C Ratio (test code = B/C Ratio) 27 1 6-25 [facility]annCHEM WYBWN0751-22-35 06:22:0011.3[facility]annHEMATOLOGY 2018-09-22 06:22:006.5[facility] IkqciqaZTPJTQDIWN0949-30-72 06:22:000.1[facility] IraigwpUQTYXJYISD6471-16-72 06:22:000.2[facility] TxpizjwFKWRNOBDWE7887-61-26 06:22:0073.8[facility] MutccowOYBYAPUFQU8624-70-61 06:22:0019.4[facility] HHMMXGMBEH9955-91-60 06:22:006.0[facility] EnpcvmfZMBNZEOFBT6609-41-80 06:22:001.6 [facility] TiuziafLCYCYFVIYK0871-46-99 06:22:000.5[facility] HermannHEMATOLOGY 2018-09-22 06:22:0011.3[facility] MefveanRMDZHIOUZE4584-07-25 06:22:0033.1[facility] DjvekyjMKXKJVTPKC4280-43-82 06:22:0014.0[facility] QacgndjGNZNYACKNO4160-42-07 06:22:14318Ifavpfyl QnehykbGEPUOXMHCN1401-09-87 06:22:0093.1[facility] RGURYCHPOG2889-59-28 06:22:0044.2[facility] GpxtstrIDSMUJYMFX9836-69-35 06:22:00 Test Item Value Reference Range Interpretation Comments MCH (test code = MCH) 30.8 pg 27.0-31.0 [facility] SinkbkaEJZDNFOVSG0142-80-10 06:22:004.74[facility] HermannHEMATOLOGY 2018-09-22 06:22:008.1[facility] RjulktsVUGYKZYAYO4286-92-03 06:22:0014.6[facility] HermannCHEM HLBZB5042-32-17 07:00:003.3[facility] HermannCHEM DHBDC8944-45-35 07:00:002.0[facility] HermannCHEM UMHLM7932-87-18 07:00:0070[facility] HermannCHEM KKNOB0775-27-60 07:00:008.7[facility] HermannCHEM NRBMM6864-04-15 07:00:000.84 [facility]annCHEM ECVOS2486-31-45 07:00:10219Dcebwrrm HermannCHEM PANEL 2018-09-18 07:00:0032[facility] HermannCHEM WBMXN0213-10-81 07:00:92352Wokqggxh HermannCHEM YDVES8158-97-91 07:00:0032[facility] HermannCHEM QNOBZ5099-35-33 07:00:003.9[facility] HermannCHEM UAVNY2218-31-95 07:00:65316Jvhrgvkd HermannCHEM MAYFE9799-03-83 07:00:007.9[facility] RiinnmpRVVJGIQKBG4924-03-73 07:00:000.7 [facility] IuyoiiwWDAXOVZEMG7846-02-70 07:00:001.7[facility] HermannHEMATOLOGY 2018-09-18 07:00:006.0[facility] AnpyazhLMBVFJMMFS3113-59-28 07:00:000.1[facility] JniqckmCWCMSDGMOD3272-91-27 07:00:008.5[facility] OarhnbkKVPYIEFRYZ4732-92-52 07:00:0020.3[facility] HxvcqelJDTUDYKDRO1582-10-95 07:00:0071.1[facility] ANOYAKWGCW2375-24-28 07:00:0033.8[facility] ZmzwvkcRMFOXKSRBH5898-76-00 07:00:00 14.1[facility] YksjuakDAFRKTVJDP0228-78-68 07:00:00 Test Item Value Reference Range Interpretation Comments MCH (test code = MCH) 31.2 pg 27.0-31.0 [facility] AikegtoDKHVUMPGTI4886-85-10 07:00:0092.2[facility] HermannHEMATOLOGY 2018-09-18 07:00:0044.7[facility] EvnhdopUSZEOPIXHK1556-69-61 07:00:004.85[facility] MntgiptSMLBVURZHB8837-99-96 07:00:008.5[facility] MebjixyYJHIAKYBFA1389-24-79 07:00:0015.1[facility] YxdoekjJHRELGBXQN4308-04-82 07:00:0011.8[facility] MKBKMBVPNE2953-90-63 07:00:0081[facility] HermannPARATHYROID XLKGXQF0602-09-51 07:00:001.09[facility] HermannPARATHYROID VBTMDDE3412-86-11 07:00:001.09[facility] HermannCHEM RCWTQ5952-57-57 06:12:002.0[facility] HermannCHEM DYJXS0034-40-07 06:12:008.6[facility]annCHEM HZYSJ2428-16-38 06:12:006.4[facility]annCHEM DVXUJ3606-56-19 06:12:0070[facility]annCHEM NQGEB7938-03-25 06:12:003.4 [facility]annCHEM ZELGB5808-43-05 06:12:43887Emgcrdnc HermannCHEM PANEL 2018-09-17 06:12:21426Jupcufrr HermannCHEM RYNXL9044-15-42 06:12:000.84[facility] HermannCHEM YRJGM9302-54-69 06:12:0035[facility] HermannCHEM IXNNH8836-83-92 06:12:37824Qepsjxty HermannCHEM HGGCF0759-38-94 06:12:0037[facility]annCHEM HYAQB0227-82-29 06:12:002.6[facility] FxguzhzPSQQHVZEHZ9100-30-81 06:12:0071 [facility] AqgovhsEYXVMNWRCN2836-68-68 06:12:0033.1[facility]annHEMATOLOGY 2018-09-17 06:12:0010.7[facility] LmleomcYMNQMNQUBH0085-42-33 06:12:0014.1[facility] VeyfekuHXNSFPZOUN4999-22-93 06:12:00 Test Item Value Reference Range Interpretation Comments MCH (test code = MCH) 30.4 pg 27.0-31.0 [facility] DbwkenvWSRVKSFEIY9853-77-40 06:12:009.7[facility] HermannHEMATOLOGY 2018-09-17 06:12:0092.0[facility] XxlcelxXYASITTSBG2292-60-79 06:12:0044.7[facility] IippgzvXNOOCOCAUU3274-14-05 06:12:004.86[facility] OsijcawWMJKGPGNXR0679-35-25 06:12:0014.8[facility] RwwuiutSMNJALEWPX4716-50-18 06:12:001.4[facility] CZHWFNQPUE7250-74-13 06:12:007.6[facility] QwmiduaKCTPUWTQLS2616-79-04 06:12:007.0 [facility] IadyawfEJQLJFUZHN8353-00-16 06:12:000.5[facility] HermannHEMATOLOGY 2018-09-17 06:12:0014.4[facility] HeoclejCSFGULBASC0892-16-24 06:12:000.7[facility] ZxkfohyJROTKARAGJ3838-60-66 06:12:0078.1[facility] HermannPARATHYROID PROFILE 2018-09-17 06:12:001.11[facility] HermannPARATHYROID CGQHXNP6440-10-69 06:12:00 1.14[facility] HermannCHEM HDVEI0844-21-63 05:36:002.1[facility] HermannCHEM PANEL 2018-09-16 05:36:002.0[facility] FolhgofFNIRAXYNGLDB1454-24-20 05:36:008.1[facility] EfgjobsMBVXJOHRVTDO7932-00-64 05:36:0047[facility] GfyaukaBKLBGMEPMHMS0753-74-20 05:36:0033[facility] FzkbgfaJYJOKHKNHSDM4158-82-81 05:36:008.4[facility] CXAAVINBPOZX6644-44-58 05:36:004.1[facility] BdklbnxJBLZIGEBAOUG0553-96-66 05:36:73775Jbjjcnii DoustxzXHCTOMITKXHA3872-25-54 05:36:83570Ranvccht [facility] PWRCKBFAFNBN2230-99-74 05:36:0037[facility] AwgfqpmTKLYJNOYFNNK7384-66-49 05:36:00 1.17[facility] ZazzqruHZJZHKLRCLMI3826-34-70 05:36:58321Bpfuxwvg HermannHEMATOLOGY 2018-09-16 05:36:0077[facility] GavffghLQPZPIDTUK3381-05-24 05:36:0033.5[facility] DfzaecnELGZQTKOJO6778-49-66 05:36:0014.2[facility] MxcvntuEDIMSUVICN2456-91-31 05:36:0011.1[facility] LgbkpftSUKOPDBZVA7408-16-85 05:36:0092.4[facility] BFQNYCMIUV3537-57-60 05:36:00 Test Item Value Reference Range Interpretation Comments MCH (test code = MCH) 31.0 pg 27.0-31.0 [facility] AfkqcjaRNNJABHVDX4108-43-09 05:36:0041.6[facility] HermannHEMATOLOGY 2018-09-16 05:36:004.50[facility] TuantkdNGDGIEIAQW4075-59-65 05:36:0014.0[facility] MewknrlDEQJSKJFDA6902-83-51 05:36:0010.6[facility] GvvhmwpFGHEUERVEN5067-60-40 05:36:008.8[facility] JcfujzySJJUDEFDWP6211-39-19 05:36:000.7[facility] WLFKDRGYYN7424-04-38 05:36:000.3[facility] KphvnfiISOFYDUTRA8884-18-49 05:36:001.0 [facility] ArrouhlCTPLYWIUPS4414-75-03 05:36:0083.3[facility] HermannHEMATOLOGY 2018-09-16 05:36:009.9[facility] YhxmsniCEAFZRHNMS5461-84-90 05:36:006.5[facility] HermannPARATHYROID YVXLZKT5335-95-46 05:36:001.13[facility] HermannPARATHYROID OXNMFSV2724-45-40 05:36:001.13[facility]annURINE AND EZIZM7549-28-42 22:04:00 3[facility]annUR[facility] AND XHUNO0190-33-80 22:04:001[facility]UR[facility] AND BQKJF9831-23-35 22:04:00 Test Item Value Reference Range Interpretation Comments UA pH (test code = UA pH) 5.5 1 5.0-8.0 [facility] AND OVCMV8405-97-53 22:04:20645 *ABN*(09/15/18 5:04 PM) [facility] GKVJK5116-00-69 22:04:00Negative *NA*(09/15/18 5:04 PM) [facility] VBMUA8776-92-15 22:04:005[facility] AND QUSDZ9223-71-05 22:04:004[facility]UR[facility] AND RFAOM2142-58-79 22:04:00 Negative (09/15/18 5:04 PM)[facility] NWQCO0123-54-39 22:04:00 Negative (09/15/18 5:04 PM)[facility] MSSPM3746-53-08 22:04:000.2 [facility] AND SFEDC2523-72-50 22:04:00Negative (09/15/18 5:04 PM) [facility] QHKVS1055-78-01 22:04:00Negative *NA*(09/15/18 5:04 PM) [facility] LNOFB0353-79-97 22:04:00 Test Item Value Reference Range Interpretation Comments UA Spec Grav (test code = UA Spec 1.025 1 Grav) [facility] XHKHG3640-40-20 22:04:00Clear (09/15/18 5:04 PM) [facility] GHCOC6691-58-05 22:04:00Yellow *NA*(09/15/18 5:04 PM) [facility] TyeengjZTSWRGFFCC7003-11-72 17:20:00<1.0[facility] HermannBACTERIAL - WKOZHPZO4423-89-45 16:23:00Negative (09/14/18 11:23 AM)[facility] HermannIMMUNOLOGY 2018-09-14 14:09:001.25[facility] GpymdqnXFGVPFEHTA6868-35-37 14:09:0042[facility] SsqazqtSXOETZQEIL4250-05-96 08:47:000.1[facility] UhqedmtSYUXYVBMCT6057-65-43 08:47:000.1[facility] CdfxqzwIYNZGKGHHK9877-82-59 08:47:001.1[facility] XPTQHTOBES5466-43-70 05:36:000.1[facility] BeibkrkYTPIGSBACP6152-02-36 05:36:000.1 [facility] TvrbkdsQPNVADIDUW9887-28-07 05:36:000.9[facility] STOOL 2018-09-12 16:27:00<1.0[facility] KSUNT6689-87-91 16:27:00 Trace *ABN*(09/12/18 11:27 AM)[facility] [id number] 16:27:00 Small *ABN*(09/12/18 11:27 AM)[facility] [id number] 16:27:00 Negative *NA*(09/12/18 11:27 AM)[facility] YBTSV5847-52-76 16:27:00Slight *ABN*(09/12/18 11:27 AM)[facility] OBPHG5896-14-46 16:27:00 Test Item Value Reference Range Interpretation Comments UA pH (test code = UA pH) 5.0 1 5.0-8.0 [facility] FZPBC7922-97-68 16:27:00 Test Item Value Reference Range Interpretation Comments UA Spec Grav (test code = UA Spec 1.018 1 Grav) [facility] EEBYO5701-33-32 16:27:00Yellow *NA*(09/12/18 11:27 AM) [facility] KVEGK9057-60-15 16:27:004[facility] XCXZM2332-73-07 16:27:004[facility] LCLGU6599-62-66 16:27:00 Negative (09/12/18 11:27 AM)[facility] ISUMM5517-63-90 16:27:001 [facility] SXQHE7750-10-89 16:27:00Negative (09/12/18 11:27 AM) [facility]annCHE[facility] CNFAQ0333-93-42 09:34:000.7[facility]annCHEM PANEL 2018-09-12 09:34:63619Ailfjvgf HermannCHEM HCIUY2620-18-65 09:34:008.3[facility]annCHE[facility] POKZV8181-57-83 09:34:0025[facility]annCHE[facility] NGWNC8448-25-09 09:34:0034[facility]annCHEM ROUSB0940-99-04 09:34:002.7[facility]annCHE[facility] PAKAY2046-39-98 09:34:005.6[facility]annCHE[facility] HZMSY3811-05-58 09:34:00 Test Item Value Reference Range Interpretation Comments B/C Ratio (test code = B/C Ratio) 9 1 6-25 [facility] KGQGB8835-92-03 09:34:00 Test Item Value Reference Range Interpretation Comments A/G Ratio (test code = A/G Ratio) 0.5 1 0.7-1.6 [facility] CenterCtdabrgBHTDAXUUDP4343-69-85 09:34:00 Test Item Value Reference Range Interpretation Comments PTT (test code = PTT) 31.6 s 22.9-35.8 [facility] CenterPlpngnmMNXMDQFXZB5072-58-20 09:34:00 Test Item Value Reference Range Interpretation Comments PT (test code = PT) 14.2 s 12.0-14.7 [facility] CenterUbhvjreGWQSWHBKVO8297-14-83 09:34:00 Test Item Value Reference Range Interpretation Comments INR (test code = INR) 1.12 1 0.85-1.17 [facility] CenterNahugbpWAXQEPDERI2395-43-98 09:34:002.4[facility]annHEMATOLOGY 2018-09-12 09:34:000.2[facility] SkemlrvQSSHSQHLXV0065-44-46 09:34:000.2[facility]annCHEM KZDPM5489-81-00 07:19:00<0.1[facility]annCHEM ZNHGE4040-71-01 07:19:00 Test Item Value Reference Range Interpretation Comments A/G Ratio (test code = A/G Ratio) 0.5 1 0.7-1.6 [facility] CenterannCHEM LGJFP9484-43-42 07:19:0040[facility]annCHE[facility] PANEL 2018-09-11 07:19:0031[facility]annCHEM RHNTX6944-47-06 07:19:50685Msllphvd HermannCHEM HUSDK5906-41-64 07:19:000.8[facility]annCHEM MCNHT7740-22-51 07:19:007.3[facility]annCHE[facility] PKMSA1694-91-57 07:19:002.5[facility]annCHEM JAXGW2708-27-31 07:19:004.8[facility]BL[facility] EJFPKFR4162-72-54 22:06:00 Negative (09/10/18 5:06 PM)[facility]CHE[facility] PDKZB9940-07-94 22:06:37938 [facility] HermannCHEM UYLED0926-49-06 22:06:000.8[facility]annCHEM PANEL 2018-09-10 22:06:0045[facility]annCHEM UNMGL4275-97-22 22:06:0035[facility]annCHEM FVVWJ5065-09-37 22:06:007.1[facility]annCHEM DUOOD4662-21-22 22:06:002.9[facility]annCHEM QGSXA6982-24-51 22:06:00 Test Item Value Reference Range Interpretation Comments B/C Ratio (test code = B/C Ratio) 11 1 6-25 [facility]CHE[facility] YYJOP4273-57-11 22:06:00 Test Item Value Reference Range Interpretation Comments A/G Ratio (test code = A/G Ratio) 0.7 1 0.7-1.6 [facility] TSTVO7609-37-48 22:06:004.2[facility] 2018-09-10 22:06:00Negative 1(09/10/18 5:06 PM)[facility] 2018-09-10 22:06:00 Test Item Value Reference Range Interpretation Comments Pat Od Value (test code = Pat Od 0.127 1 Value) [facility]MxbkivjFIHSPMICTF8151-92-33 22:06:00 Test Item Value Reference Range Interpretation Comments Pos CO Value (test code = Pos CO 0.400 1 Value) [facility]SszdijiIFRDRZVCDC0245-12-31 22:06:00 Test Item Value Reference Range Interpretation Comments INR (test code = INR) 1.08 1 0.85-1.17 [facility] HospitalWjuqnpjCAQIOMQDPW1514-14-71 22:06:00 Test Item Value Reference Range Interpretation Comments Thrombin Time (test code = Thrombin 19.1 s 15.0-21.2 Time) [facility] VjhgoteXHRALKMVXU6864-89-22 22:06:001.22[facility]annHEMATOLOGY 2018-09-10 22:06:02036Nhwvjtqy OetsedaNSCNEMYXEK2036-86-31 22:06:00 Test Item Value Reference Range Interpretation Comments PTT (test code = PTT) 30.3 s 22.9-35.8 [facility] BvqrtqdFTDKGNQPWH0429-85-75 22:06:00 Test Item Value Reference Range Interpretation Comments PT (test code = PT) 13.8 s 12.0-14.7 [facility] XerlvikDMUDPYEWCG1060-70-00 22:06:71810.0[facility] FFMOT9735-17-87 22:06:00Marked *ABN*(09/10/18 5:06 PM)[facility] JIAED7894-23-49 22:06:00Yellow *NA*(09/10/18 5:06 PM)[facility] TSQYW5483-80-47 22:06:00 Test Item Value Reference Range Interpretation Comments UA pH (test code = UA pH) 6.0 1 5.0-8.0 [facility] EEAUN9798-37-82 22:06:00Trace *ABN*(09/10/18 5:06 PM) [facility] RRFJK0929-76-82 22:06:00Negative *NA*(09/10/18 5:06 PM) [facility] DWZJI6690-05-77 22:06:00Trace *ABN*(09/10/18 5:06 PM) [facility] IPRXT9276-99-26 22:06:00<1.0[facility] KLTGX7517-78-25 22:06:00Small *ABN*(09/10/18 5:06 PM)[facility] VDTBB1894-56-23 22:06:00Negative (09/10/18 5:06 PM)[facility] WYBAT4602-05-65 22:06:00 Test Item Value Reference Range Interpretation Comments UA Spec Grav (test code = UA Spec 1.012 1 Grav) [facility] JXLWS7781-41-71 22:06:0019[facility] YGOTW7888-65-09 22:06:001[facility] HqgptrmHYPWBXZVTF8164-76-66 14:47:000.0 [facility] LutdppwETESCTJJLO5581-01-16 14:47:000.0[facility] HermannIMMUNOLOGY 2018-09-10 14:47:87316.0[facility] CiegpvmDVZQJZVZIB9481-38-33 16:20:0020[facility] FhcofpuYVWWMGHPKW8773-66-05 16:20:005.2[facility] XuxajcdZVXIHIRXTU2683-15-59 16:51:00 Test Item Value Reference Range Interpretation Comments PTT (test code = PTT) 32.0 s 22.9-35.8 [facility] VnqdutgRACHDCFTHF3376-15-01 16:51:00 Test Item Value Reference Range Interpretation Comments PT (test code = PT) 13.5 s 12.0-14.7 [facility] DcodqhjBYOVGHEWNB3766-01-65 16:51:00 Test Item Value Reference Range Interpretation Comments INR (test code = INR) 1.05 1 0.85-1.17 [facility] PdtotgvDBZDTDYTRZKU7747-28-71 16:46:0015.8[facility] HermannELECTROLYTES 2018-09-08 16:46:00 Test Item Value Reference Range Interpretation Comments B/C Ratio (test code = B/C Ratio) 16 1 6-25 [facility] XmmcgoiNTCFUMNONABV4736-56-59 16:46:004.2[facility] HermannELECTROLYTES 2018-09-08 16:46:00 Test Item Value Reference Range Interpretation Comments A/G Ratio (test code = A/G Ratio) 0.7 1 0.7-1.6 [facility] TfiihhcAEEOWLHNYWAX3161-65-08 16:46:06008Ssgwioqr HermannELECTROLYTES 2018-09-08 16:46:003.8[facility] VpzgjkcNMPKVZHZNQGN7824-25-69 16:46:37618Cytqrxcp WddafdlYEOGFVXEJKTN3112-93-68 16:46:0021[facility] OcjatiwLNTDHPZVRYCP3841-11-01 16:46:75203Grrvsjhv EdxwyicIMIQFXTOFPIR0813-59-44 16:46:002.9[facility] OMDEVIQPXPLR8593-35-70 16:46:0028[facility] LwurejkRKLAPJKAXWBW4431-21-44 16:46:00 40[facility] LwiaaxcEWIOVIEJSYOE5374-25-74 16:46:89934Bgbrmrpa HermannELECTROLYTES 2018-09-08 16:46:0067[facility] ZiixnvaZWXCIXJGETWK7284-01-58 16:46:001.33[facility] LlheoxiSBFVNWDCBPTT7424-67-62 16:46:001.3[facility] StllnpiVHGEWYXVWNTR2302-44-38 16:46:007.1[facility] RfyhivtMZKCPXYXZJBT6942-04-93 16:46:74717Jilglmso [facility] KQCHDRWQZPTO4395-06-09 16:46:009.3[facility] UtlsusxAPDVYELUOU1183-12-25 16:46:00 0.1[facility] WlzbegfGPMWFWWYDN8946-49-10 16:46:002.5[facility]annHEMATOLOGY 2018-09-08 16:46:000.2[facility] OnkdhqdPTERBVFSNQ5284-34-31 16:46:000.7[facility] HzxpzkbDQMXVFEPIX1182-24-47 16:46:003.3[facility] ScjtbvpFGBXCSEYUA9064-79-40 16:46:009.8[facility] LpbhofcABRSFTNJVH4770-95-24 16:46:002.5[facility] UNPZXNLVTK9321-88-73 16:46:002.0[facility] WrpeplbELKMUCASHL4076-39-33 16:46:00 48.8[facility] IearatqESFCQUEAUE7834-83-19 16:46:0036.9[facility]annHEMATOLOGY 2018-09-08 16:46:0011.3[facility] JbtwbckEAFEHVIPCW5458-41-32 16:46:00 Test Item Value Reference Range Interpretation Comments MCH (test code = MCH) 30.3 pg 27.0-31.0 [facility] YsrihwjVBJPXOJUQD9913-90-59 16:46:25973Gvokohcc HermannHEMATOLOGY 2018-09-08 16:46:0013.9[facility] NskmmduZNGLTYUCKJ9964-49-91 16:46:0092.9[facility] MzxswriOSFFTKZZMH6482-00-46 16:46:0032.6[facility] KwlfettPFPKQGMTNU9836-04-31 16:46:006.8[facility] JsztqjhAJQYFQTOKB5049-25-35 16:46:005.13[facility] FNKDDCJKCF5694-20-20 16:46:0015.5[facility] LixsdgiZXJRIMUSNW9747-02-94 16:46:00 47.7[facility] LwzmpshZINEWG6457-72-70 16:46:00 Test Item Value Reference Range Interpretation Comments VLDL (test code = VLDL) 24 1 [facility] QpyckajDNAKRB8969-62-46 16:46:0045[facility] CgzjtrzWMNDRV0109-48-13 16:46:00 Test Item Value Reference Range Interpretation Comments CHD Risk (test code = CHD Risk) 2.82 1 3.90-5.80 [facility] DvtrgrmVJSKSV0746-91-64 16:46:0038[facility] XwcdmcsRXRTUK1798-67-35 16:46:18597Sonklcwl CwvecroAUAORT4849-79-48 16:46:53919Jzrgvxvm HermannSPECIAL FBGOXLIRB4447-79-39 16:46:0012.2[facility] JadurfnEVQEKOSECE0689-82-69 22:52:009.7 [facility] ClybeagDRMHAGJFIJ2752-20-98 22:52:27825Locqmmil HermannHEMATOLOGY 2018-08-19 22:52:0013.7[facility] MtkxoyqLHBBXCAKGN9809-39-51 22:52:0017.8[facility] KxmwtysDZURRYIBUJ8328-22-13 22:52:0052.9[facility] DswzpeeVAGCIEVGXG6241-52-17 22:52:0092.3[facility] IkpabjtXLLTDGSDLU6613-30-79 22:52:005.73[facility] [place] ISUTUWLZPU3544-44-60 22:52:008.5[facility] KwizxlcBAQLZEIFMO2210-53-40 22:52:00 33.6[facility] OaeyuwuNIZAAWOUOC2650-63-81 22:52:00 Test Item Value Reference Range Interpretation Comments MCH (test code = MCH) 31.0 pg 27.0-31.0 [facility]annCARDIAC XVIYEQN8122-86-60 09:40:0098[facility] HermannCHEM PANEL 2018-08-19 09:40:003.4[facility] HermannCHEM AXJNP1494-07-59 09:40:001.9[facility] HermannCHEM DKGFO3963-51-08 09:40:0062[facility] HermannCHEM QZNHU5603-22-76 09:40:008.8[facility] HermannCHEM BKHMK5396-97-45 09:40:0023[facility] HermannCHEM FTFYT3783-57-08 09:40:59645Eqbxqsyq HermannCHEM HXRDS4677-79-94 09:40:004.6 [facility] HermannCHEM JISGN8382-15-36 09:40:000.94[facility] HermannCHEM PANEL 2018-08-19 09:40:83078Npzcsddd HermannCHEM UVVUK6503-93-51 09:40:0013[facility] HermannCHEM DOYZA1211-60-06 09:40:65871Vsvdvexd HermannCHEM WITWO1735-75-63 09:40:0013.6[facility] PvlgrhcHNGWFIEORF3475-23-51 09:40:000.2[facility] [place] YMCUYPDFPL2614-22-40 09:40:000.1[facility] FutirklIKNCOWANYB9777-91-14 09:40:00 47.9[facility] CirqkzqAGEDBRHJKQ8701-13-48 09:40:0040.1[facility] HermannHEMATOLOGY 2018-08-19 09:40:003.9[facility] FfwtwenGCURWKNDCH7545-45-22 09:40:000.9[facility] BhxrgvcCJUMULBVCS7669-15-05 09:40:008.8[facility] LmcbevxQBLEOCWAAQ4979-68-01 09:40:001.2[facility] KwnbwzgZTCXHSPPLD6608-60-72 09:40:002.0[facility] YFZDYMRBDG6255-45-90 09:40:004.7[facility] DbtxpenUFNTCQDOQI8740-37-32 09:40:00 Test Item Value Reference Range Interpretation Comments INR (test code = INR) 1.09 1 0.85-1.17 [facility] PvnfxbfAPCBXMLWMO7603-33-23 09:40:00 Test Item Value Reference Range Interpretation Comments PT (test code = PT) 13.9 s 12.0-14.7 [facility] JexvyokNXXQNHYMDQ7496-21-63 09:40:00 Test Item Value Reference Range Interpretation Comments PTT (test code = PTT) 31.0 s 22.9-35.8 [facility] KxsusooIJOVYTNGPN7660-05-95 09:40:0093.0[facility]annHEMATOLOGY 2018-08-19 09:40:00 Test Item Value Reference Range Interpretation Comments MCH (test code = MCH) 31.1 pg 27.0-31.0 [facility] ArvujnrDQQOALLSNL3609-88-73 09:40:0013.7[facility] HermannHEMATOLOGY 2018-08-19 09:40:0033.4[facility] OknsgjqAYCKMDFHSS2377-54-53 09:40:0077[facility] UqboxtnNGDNTUISSM7290-77-72 09:40:009.9[facility] MxozgqoRSVGNKMDCX1609-21-36 09:40:0049.7[facility] MykqslhCQKNOWCJND3290-59-73 09:40:0016.6[facility] TMGNULIZDU1716-85-17 09:40:005.35[facility] HyzobfmQYBUEIEELI9919-36-29 09:40:00 9.7[facility] HermannPARATHYROID YDAURVQ1786-80-09 09:40:001.02[facility] [place] PARATHYROID RFJIPLT4961-19-26 09:40:000.98[facility]annURINE AND STOOL 2018-08-19 09:40:00Negative (08/19/18 4:40 AM)[facility] HermannCHEM PANEL 2018-08-18 10:45:06903Vndjgrfi HermannCHEM HXLPL3736-75-91 10:45:00 Test Item Value Reference Range Interpretation Comments A/G Ratio (test code = A/G Ratio) 0.6 1 0.7-1.6 [facility]annCHEM QPAZQ7600-98-22 10:45:0030[facility] HermannCHEM PANEL 2018-08-18 10:45:006.9[facility] HermannCHEM AIBPX1429-76-80 10:45:002.6[facility] HermannCHEM UYCAV3535-74-56 10:45:004.3[facility] HermannCHEM CVOSC7615-36-85 10:45:00<0.1[facility] HermannCHEM BVHHV5365-10-13 10:45:000.5[facility] CHEM PAOKG3582-90-52 10:45:00>0.4[facility] HermannCHEM NJOBY1398-99-88 10:45:0021[facility] HermannCHEM AUYHH5253-19-62 10:45:008.5[facility] HermannCHEM UWCYO1336-28-75 10:45:0071[facility] HermannCHEM VIUPJ8772-52-72 10:45:0013 [facility]annCHEM NNCAJ0695-66-78 10:45:94456Okunqpgd HermannCHEM PANEL 2018-08-18 10:45:0027[facility] HermannCHEM UESJY0340-59-13 10:45:003.6[facility] HermannCHEM FBUZA3812-56-98 10:45:08478Aalwkwou HermannCHEM KWEAF3954-81-76 10:45:53346Cmxewykw HermannCHEM YXFMG9462-36-41 10:45:000.83[facility] HermannCHEM WTXTL4048-52-46 10:45:0010.6[facility] HermannCHEM RNEZC5855-86-16 10:45:001.8 [facility]annCHEM VNWIO3776-56-03 10:45:003.6[facility]annHEMATOLOGY 2018-08-18 10:45:003.9[facility] XeeefpbYNFNZERQUX4307-96-98 10:45:002.5[facility] KdncapyDJNXUPOWIK4257-92-97 10:45:001.9[facility] PohcxloLTEATQBASE8655-70-56 10:45:000.6[facility] RxhacqsUUPSMRBHYB4965-90-53 10:45:003.8[facility] HAJJZPVFEL0902-02-88 10:45:000.2[facility] AohndbiZBFHBINNCN0682-95-54 10:45:000.2 [facility] AgdlkfaQRRHKMMQHN6802-41-30 10:45:0044.0[facility] HermannHEMATOLOGY 2018-08-18 10:45:0045.3[facility] LoxveirFVXIYYSKPW8456-90-07 10:45:006.3[facility] ZkeeqgtUPPDHGKDKR5001-45-58 10:45:0049.2[facility] OzhhyrjUJPOFMZXTS1114-05-78 10:45:0017.0[facility] XtvdvbnIUGHYSJBFL4171-81-27 10:45:005.30[facility] LMJGRULJME4730-67-51 10:45:008.7[facility] YlaindyNFQCXXXBOV0801-30-22 10:45:00 92.8[facility] TkmapotYNKJQDSDRL9317-86-23 10:45:009.7[facility] HermannHEMATOLOGY 2018-08-18 10:45:0013.6[facility] CtyrnogNDLYWFIBFJ9195-17-02 10:45:71646Sdhxdmpt RjkhpnfUBUNSNMBOC1608-53-24 10:45:0034.6[facility] TjnzfigYLAOKRKNHV7239-01-21 10:45:00 Test Item Value Reference Range Interpretation Comments MCH (test code = MCH) 32.1 pg 27.0-31.0 [facility] HermannPARATHYROID ASCUACL6638-06-83 10:45:001.05[facility] PARATHYROID CPMUBUD6391-91-03 10:45:001.06[facility] FpinjhiBHKIQZNNFO3567-77-19 04:46:110.9[facility] VfjzoxrRHFHWIKISS6766-56-06 04:46:110.2[facility] CHPMZPYFID3088-29-73 04:46:115.1[facility] CpqxqagUTYAMZVJDB9819-37-95 04:46:110.1 [facility] LhdbtbjEJIOOVOAMV5408-10-33 04:46:117.6[facility] HermannHEMATOLOGY 2018-08-17 04:46:1144.9[facility] NfvnpptAJKQMZVICE3361-95-10 04:46:1144.2[facility] CgvnwkfQROBUYRDUG6120-04-21 04:46:111.3[facility] FrkdireFKYIQRZLAT3731-91-25 04:46:112.0[facility] OlvjoayDZNSARHSLG7893-99-46 04:46:115.2[facility] KVUQYMGSIMVA9628-59-96 20:35:0011.9[facility] YooclsiJQTTWSHPSGID1597-99-59 20:35:0064[facility] VgpwoiwCJIFADIBLVKI8625-44-60 20:35:68686Uwzeouxo [place] ZVCIXAKJQAWU3326-17-14 20:35:003.9[facility] UjzfluxMMPENVLNIAAU6637-71-77 20:35:46566Fptqxyba RcddrpjAOZOVJOABEEW9249-16-23 20:35:0030[facility] [place] XMTYSCJQPEUV8748-30-48 20:35:009.6[facility] FfoeivuVLEVZHZYVJNP5149-17-36 20:35:0016[facility] WcurcjwKVWXCKEIXFIJ6686-45-79 20:35:76173Qrbliqeg [facility] XVUQIGALFJOR2054-10-40 20:35:000.91[facility] HqrgjsrWMSFAJVQQE9045-74-73 20:35:00 Normal (08/16/18 3:35 PM)[facility] RzjuctuLOVATFEWDM7286-54-89 20:35:00Normal (08/16/18 3:35 PM)[facility] SonzydoKTBBTARADZ1039-03-12 20:35:00 Test Item Value Reference Range Interpretation Comments PTT (test code = PTT) 32.0 s 22.9-35.8 [facility] EtgoapvIJYKJXUVRR6468-79-70 20:35:00 Test Item Value Reference Range Interpretation Comments PT (test code = PT) 12.6 s 12.0-14.7 [facility] UfvwtzeMKIVLGVPMP2850-99-08 20:35:00 Test Item Value Reference Range Interpretation Comments INR (test code = INR) 0.96 1 0.85-1.17 [facility] HUDV4623-90-07 15:21:00Surgical Pathology Report Case: [id number] Authorizing Provider: Ruma Santana MD Collected: 02/24/2017 3002 Ordering Location: [facility] Received: 02/25/2017 0810 Pathologist: Kenji Hercules MD Specimens: A) - Large Intestine, Colon - Right/Ascending, BX-R/O MICROSCOPIC COLITIS B) - Large Intestine, Colon - Left/Descending, BX-R/O MICROSCOPIC COLITIS C) -Polyp, Colon - Sigmoid, POLYP-TAKEN W/FRCP A. RIGHT/ASCENDING COLON BIOPSY - COLONIC MUCOSA, WITHIN NORMAL LIMITS- NO EVIDENCE OF LYMPHOCYTIC/MICROSCOPIC COLITISB. LEFT/DESCENDING COLON BIOPSY- COLONIC MUCOSA, WITHIN NORMAL LIMITS- NO EVIDENCE OF LYMPHOCYTIC/MICROSCOPIC COLITISC. SIGMOID COLON POLYP, BIOPSY- SESSILE SERRATED POLYP/ADENOMA Signing Pathologist Direct Phone Line: [phone] signed by Kenji Hercules MD on 02/26/2017 at 3:21 [id number] x 3Diarrhea, rule out microscopic colitisA. Right/ascending [...] greatest dimension. Specimen is entirely submitted in B1.SpecimenC: Received in formalin labeled "polyp, colon sigmoid" [...] with focal irregularity and hyperserrations. Dysplasia and malignancyare not seen.POCT-GLUCOSE METER 2017-02-24 16:58:00 Test Item Value Reference Range Interpretation Comments POC-GLUCOSE METER 144 mg/dL 70-110 H TESTED AT [facility] [address] ([facility]) (test code = [facility] 1538) [address] POCT-GLUCOSE LNHEX1741-01-02 14:21:00 Test Item Value Reference Range Interpretation Comments POC-GLUCOSE METER 118 mg/dL 70-110 H TESTED AT [facility] 67[address] ([facility]) (test code = [facility] 1538) [address] BEDSIDE GLUCOSE RDQFGQY7739-08-69 21:51:31102.0[facility] HermannBEDSIDE GLUCOSE GDIZAHQ5354-86-51 16:52:85765.0[facility] HermannBEDSIDE GLUCOSE WEVHBEZ5944-05-04 12:45:68424.0[facility] DsffdisEVOAPVAFR2662-81-52 10:30:003.3[facility] YKQGNBRHU0501-98-24 10:30:005.4[facility] BsagsgsECIKOMSFT7051-09-99 10:30:002.1 [facility] ZbtrkiwORHIQGFKM5491-10-32 10:30:93511.0[facility] HermannCHEMISTRY 2011-03-25 10:30:44846.0[facility] RvxmbznLFLJQYEEB0452-94-10 10:30:00 Test Item Value Reference Range Interpretation Comments A/G Ratio (test code = A/G Ratio) 0.6 1 0.7-1.6 L [facility] LyespaaTDHPYNTQS3705-45-69 10:30:74644.0[facility] HermannCHEMISTRY 2011-03-25 10:30:000.2[facility] IcjatkjXKEHCSEBN9426-63-72 10:30:000.3[facility] UjsbgcbAPBWRDYKV3883-37-81 10:30:000.1[facility] FweaoktNUAPXBWLP1116-41-37 10:30:002.4[facility] VllxgrbUMXJUDEII7146-00-38 10:30:004.1[facility] [place] AYAVRLNKJ8114-07-98 10:30:03816.0[facility] HjevhutQRYDCRGLB8213-24-53 10:30:00 140.0[facility] RrrkauqTCOHIBXCN6664-69-87 10:30:008.0[facility] HermannCHEMISTRY 2011-03-25 10:30:0019.0[facility] GfpgeccQFCJLUEYW3024-51-67 10:30:87392.0[facility] QdaitmwOWZTGXOQO4135-07-02 10:30:0021.0[facility] NxoccnxCPGILDKDI2765-77-43 10:30:001.7[facility] HgdslvmJBSRQUDUU8938-44-44 10:30:0018.1[facility] APRXSBEWNK7877-89-87 10:30:000.9[facility] WgjowaxPIAPEVBAFN3531-76-67 10:30:000.1 [facility] OwhzynyPOBIHSCPRP6430-25-52 10:30:0016.0[facility] HermannHEMATOLOGY 2011-03-25 10:30:009.1[facility] QxmhsuaWHLWXSPFBW2719-07-15 10:30:001.5[facility] IlvhzgzAPHYHXQBLQ1871-87-71 10:30:004.3[facility] ElosrqeXSJSJYSIYK0452-04-34 10:30:003.2[facility] OwaziocSBLPTFZHWS2351-19-49 10:30:001.6[facility] FQTYJWQBYG7105-74-58 10:30:0031.4[facility] UvnfqkxTNKQZYHXGS5341-23-27 10:30:00 42.0[facility] DwbbqtnEKYRPSYISD5874-83-51 10:30:0015.0[facility] HermannHEMATOLOGY 2011-03-25 10:30:0033.9[facility] CrkdopzNSQMIIXNQD6596-46-48 10:30:00 Test Item Value Reference Range Interpretation Comments MCH (test code = MCH) 31.0 pg 27.0-31.0 N [facility] KvbtucsSEHYCZPNQC7351-99-56 10:30:0091.4[facility] HermannHEMATOLOGY 2011-03-25 10:30:0036.8[facility] YpbftndNSKZHCKSSZ4635-65-05 10:30:0012.5[facility] WczofmdCHHPDMBTBS7808-72-15 10:30:0010.0[facility] TisbgzaMPCMRPGROQ0668-30-94 10:30:24951.0[facility] NvihrzbZDQOJDEJKZ1358-67-52 10:30:004.03[facility] [place] TASOCLYUOS5584-45-25 10:30:0010.1[facility] FbezdczHGHTROLNN4282-49-67 13:51:00 Test Item Value Reference Range Interpretation Comments A/G Ratio (test code = A/G Ratio) 0.7 1 0.7-1.6 N [facility] HgdlkhyISEFMKIFH9073-87-76 13:51:000.2[facility] HermannCHEMISTRY 2011-03-24 13:51:003.2[facility] WkluohgQYEPTOESY4353-38-96 13:51:005.6[facility] KgqibdaBBAENIMZR9975-79-74 13:51:002.4[facility] ExlypqhMGSTFYVPF5298-69-12 13:51:000.2[facility] TpqwzvoQBICDJCYX1977-82-01 13:51:86637.0[facility] UWQKMUSGT7681-39-47 13:51:89121.0[facility] QzqtyneURYFANXFO5594-88-09 13:51:000.4 [facility] AbppwjzYTCPYGFJS4692-84-16 13:51:88622.0[facility] HermannCHEMISTRY 2011-03-24 10:08:001.emorial LjkfchoQNHCYWBYI6202-05-70 10:08:0015.6[facility] OixhcmqXSGOZNBRA3335-72-45 10:08:0021.0[facility] IjyrlbdJCLVTPRBF3318-54-02 10:08:003.emorial OrzabjcDMAPDEVAS8994-75-08 10:08:00051.0[facility] UZNIDNZIK4099-62-59 10:08:007.7[facility] MucbzxoEOTSUHJNG0010-97-55 10:08:24507.0 [facility] NzbsrgjGZPVJPIOF3489-10-19 10:08:0023.0[facility] HermannCHEMISTRY 2011-03-24 10:08:001.7[facility] UoxqbqcSXOPCCSBY4153-88-03 10:08:03337.0[facility] ZczlqawIXEPPIZPFH3470-87-25 10:08:00 Test Item Value Reference Range Interpretation Comments PT (test code = PT) 14.8 s 12.0-14.7 H [facility] AcohjtvSSDXWECJUJ0266-17-86 10:08:00 Test Item Value Reference Range Interpretation Comments INR (test code = INR) 1.16 1 0.85-1.[address] [facility] CenterMlxudcsXNRPSSFPMW1305-55-09 10:08:00 Test Item Value Reference Range Interpretation Comments PTT (test code = PTT) 34.9 s 22.9-35.8 N [facility] LzaqcolZWVQLVXOND4088-95-95 10:08:000.1[facility]annHEMATOLOGY 2011-03-24 10:08:004.1[facility] XqcymnjBSHDUQYHPY8909-02-06 10:08:002.8[facility] LzvhcfwPQOPAPPTLO6765-71-64 10:08:000.8[facility] IukjmbbGIRFWUNFDJ7418-59-00 10:08:001.8[facility] PnwuubiGCODEJGMQK9172-82-36 10:08:0028.5[facility] CDCKRWWBCH4828-71-00 10:08:008.6[facility] IymgvcfOSHFLMKOVE4922-28-41 10:08:00 19.0[facility] VqqxltgPSRQGUTEBJ4223-37-39 10:08:001.3[facility] HermannHEMATOLOGY 2011-03-24 10:08:0042.6[facility] FpdipmfHCCFLVWWZU4697-80-65 10:08:009.7[facility] XdaxmiuATEBOKDWXH5129-72-10 10:08:003.67[facility] InoxtkiYJCAOKKWYL4989-34-09 10:08:0034.9[facility] IaduijuDXXDGBUZXF2417-01-89 10:08:0015.1[facility] BUJMSWMGNI6599-90-29 10:08:83743.0[facility] RkxyphnCICVUYDXEI2329-09-64 10:08:00 90.5[facility] ZaotwgiJGNZHSZFLN3399-24-17 10:08:00 Test Item Value Reference Range Interpretation Comments MCH (test code = MCH) 31.6 pg 27.0-31.0 H [facility] JyfnnejHFFWBDVKLR1653-56-16 10:08:009.5[facility]MATOLOGY 2011-03-24 10:08:0011.6[facility] LbvdcqzKRQEKDRXPH9371-38-15 10:08:0033.2[facility] FwvujjuJYPFVCOWQB1717-51-01 10:08:00Negative *NA*(03/24/2011 05:08:00) ?? [facility] MxvmfxcXVAQUKKNY5962-49-47 10:24:0036.0[facility]annCHEMISTRY 2011-03-23 10:24:59778.0[facility] ZkkvronLRPBDDFYT9973-51-63 10:24:0097.0[facility] IupebndZPEMTYXBO7146-96-94 10:24:0022.0[facility] HabgmyeYICXXTLKR1765-82-81 10:24:001.5[facility] XgllfjfAVZVSZDGP0310-77-91 10:24:0020.0[facility] YESHTBZTI7900-01-04 10:24:70172.0[facility] GsscwpnDIIZXAFKU9598-77-73 10:24:007.8 [facility] AfjyydoEXLRSEHRR2786-39-98 10:24:38156.0[facility]annCHEMISTRY 2011-03-23 10:24:004.7[facility] SvvmpziCTGWBUYOG9331-03-75 10:24:0019.2[facility] DfzkkryQTOCDNMKE9075-52-16 10:24:002.8[facility] VlsaqxoKHEVBTRHA1000-26-77 10:24:001.9[facility] XocqvpzJZOIKAPXK9054-75-57 10:24:18041.0[facility] OEJFGGUXC3181-24-02 10:24:00 Test Item Value Reference Range Interpretation Comments A/G Ratio (test code = A/G Ratio) 0.7 1 0.7-1.6 N [facility] FqwbqzlVCGJITSSF4787-84-66 10:24:00 Test Item Value Reference Range Interpretation Comments B/C Ratio (test code = B/C Ratio) 15.0 1 6-25 N [facility] NxvkfpjSVVYVSYJZ5867-91-12 10:24:001.0[facility]annCHEMISTRY 2011-03-23 10:24:59764.0[facility] TtvsnxrXFISQKGFD0330-44-55 10:24:97028.0 [facility] LejjbxrLHOLEASMY2102-24-75 10:24:003.2[facility]annHEMATOLOGY 2011-03-23 10:24:0014.8[facility] JfmgyduAITVAGHWYE9615-51-42 10:24:009.8[facility] YkqffxtGBDCQEKBGS0848-33-17 10:24:55443.0[facility] UupxynoXMIZHDULYZ2796-34-20 10:24:00 Test Item Value Reference Range Interpretation Comments MCH (test code = MCH) 31.0 pg 27.0-31.0 N [facility] TdarramPZKSLGFVNM0128-13-37 10:24:0034.1[facility]annHEMATOLOGY 2011-03-23 10:24:0032.7[facility] CqfurdlMGWGDKYRJW4262-26-93 10:24:0091.0[facility] YkafuzcPXCYLSAVFA8186-64-04 10:24:0011.2[facility] PmhywcdUEWGLDXLQL3099-92-30 10:24:006.7[facility] JoyxiieRFJQKNFSRO8160-35-74 10:24:003.6[facility] XANAHQJOFQ5634-94-33 10:24:00Slight *ABN*(03/23/2011 05:24:00) ??[facility] BkmfkwyZOKMTCQJSH7063-69-41 10:24:002.1[facility] VcgmscsHPYKOZKPFF3681-18-08 10:24:002.7[facility] RpmfwfkDJWFQGLNCS5706-80-81 10:24:000.9[facility] KKJTABKWEP6010-70-29 10:24:00Normal (03/23/2011 05:24:00) ??[facility] OFTJSIPMZS0126-51-81 10:24:0015.0[facility] DkdpuqtNAJCRQVQOF7650-24-30 10:24:00 0.0[facility] IqzriykSQWVCQRFVY5954-93-21 10:24:001.0[facility]annHEMATOLOGY 2011-03-23 10:24:001.0[facility] EgycxjjHVJFLAMRSD5247-17-54 10:24:001.0[facility] UmpsknhNFMWXYSZLB0813-18-61 10:24:0031.0[facility] SevybjmCUQKZUZOFC1233-19-88 10:24:0013.0[facility] CvaulewNRSUPLABTP1770-47-01 10:24:0039.0[facility] BXJHTWWYNP8162-34-32 10:24:000.1[facility] NokcfelYYBMDKPBKR3824-17-16 10:24:00 10.0[facility] IhfptaxEHTKKGYIRV5046-43-22 22:20:00??[facility]annURINALYSIS 2011-03-22 22:20:003.0[facility] JusutwxFVTGKUOBGB4962-88-80 22:20:00Occasional /HPF *NA*(03/22/2011 17:20:00) ??[facility] EgczlyaMUUXEVOHRF2657-33-89 22:20:00 Few /LPF *NA*(03/22/2011 17:20:00) ??[facility] FrtpfimGWRUTJISXM6405-68-97 22:20:00Few /LPF *NA*(03/22/2011 17:20:00) ??[facility] HermannURINALYSIS 2011-03-22 22:20:00<1.0[facility] SwnknxuKQCMINWGHS3490-36-68 22:20:00Negative (03/22/2011 17:20:00) ??[facility] LobxbvcRIZMIICHGM2618-51-47 22:20:00Negative (03/22/2011 17:20:00) ??[facility] IvgohmhFPWZQZJMIT3867-11-30 22:20:94374 mg/dL *ABN*(03/22/2011 17:20:00) ??[facility] GhebzsjRKKIHBZOMQ5283-48-34 22:20:0010 mg/dL *ABN*(03/22/2011 17:20:00) ??[facility] EjjjgblBCCUDGFERK7820-23-98 22:20:00 Negative *NA*(03/22/2011 17:20:00) ??[facility] RvgprsuUJLLNKMEBA0365-99-59 22:20:00Moderate *ABN*(03/22/2011 17:20:00) ??[facility]annURINALYSIS 2011-03-22 22:20:00Negative mg/dL *NA*(03/22/2011 17:20:00) [facility] RKCMESIMRJ7061-96-02 22:20:00 Test Item Value Reference Range Interpretation Comments UA Spec Grav (test code = UA Spec 1.016 1 N Grav) [facility] PggddikJSAPXNUIJY0965-45-76 22:20:00 Test Item Value Reference Range Interpretation Comments UA pH (test code = UA pH) 5.5 1 5.0-8.0 N [facility] JtincqzFDEFGRHWFO2469-26-84 22:20:00Yellow *NA*(03/22/2011 17:20:00) ?? [facility] MxikgoqTSXUZLRWWY1708-26-61 22:20:00Slight *ABN*(03/22/2011 17:20:00) ??[facility] FarulwpOQOJAPGVW3895-36-32 14:40:000.2[facility]annCHEMISTRY 2011-03-22 14:40:000.1[facility] GscjqccRBHUPTJSFP9578-71-02 14:40:00Negative *NA*(03/22/2011 09:40:00) ??[facility] GqnnmgrOIOXKMQZNA4405-88-84 14:40:00 Negative *NA*(03/22/2011 09:40:00) ??[facility] XzkoemqTYWOHOVUWY6895-12-61 14:40:00Negative *NA*(03/22/2011 09:40:00) ??[facility] HermannIMMUNOLOGY 2011-03-22 14:40:00See Note 9(03/22/2011 09:40:00) ??[facility]annCHEMISTRY 2011-03-22 12:05:001.67[facility] LzaegqcQUGQCJJRK2228-95-25 12:05:000.044[facility] HermannBEDSIDE GLUCOSE MHJBDNP6832-87-75 17:19:88401.0[facility] HermannBEDSIDE GLUCOSE CMCPYOY6144-93-24 12:36:22881.0[facility] FfatyzqKEMMGJSFY3369-19-48 08:07:0018.5[facility] WjismwzNYZQKOXAK3231-54-60 08:07:003.5[facility] DNDOBXGSP3499-73-42 08:07:0021.0[facility] SnqrusfYLNDWZISD1083-71-62 08:07:00 147.0[facility] UizyvvpISBGHWAKI5183-73-80 08:07:001.4[facility] HermannCHEMISTRY 2011-03-15 08:07:30094.0[facility] PqqxrbkLMEGGJVHL4602-86-33 08:07:008.1[facility] VkfvoygOKZMVWDBQ9686-15-66 08:07:0097.0[facility] EboktfiZAJLOHZRK9066-24-41 08:07:0021.0[facility] AohourgWDZXFXJIU5662-40-53 08:07:001.7[facility] BYEAAAXXLL9254-54-86 08:07:0016.7[facility] RtakrctOCWMMYGPJT7445-25-30 08:07:00 12.4[facility] DkgibyiXTVQJRYRIX4116-78-30 08:07:0063.3[facility]ann[facility]MAT[facility]Y 2011-[facility]-15 08:07:000.6[facility] KnzowhvLPMKKPTJLT9116-11-10 08:07:001.1[facility] FukangxLGKHXBLHVZ4948-84-26 08:07:000.1[facility] AqjvgliRGQOWBDPPB9165-77-12 08:07:001.5[facility] DtgbhtvSZZILZHLOB4671-10-43 08:07:005.8[facility] WRFLMFWKFQ0814-47-95 08:07:001.3[facility] LyjinyzKJZDOEEZSJ2338-89-75 08:07:006.3 [facility] TcqzfbpBHPZYRMDKQ6428-22-98 08:07:00 Test Item Value Reference Range Interpretation Comments MCH (test code = MCH) 31.6 pg 27.0-31.0 H [facility] RdcmsvrWHYTJUZVQZ0029-45-36 08:07:003.56[facility]annHEMATOLOGY 2011-03-15 08:07:0090.7[facility] CnrmdihBYSYMGHXTF9825-30-07 08:07:0032.3[facility] NtyihdyTIWZCEPWYM0190-90-11 08:07:0011.3[facility] OoledxaIWICDOCCGI5734-88-20 08:07:009.1[facility] IegtizlKHWSRSYEIY3198-49-11 08:07:0010.1[facility] YTJXQLBRAR3275-12-63 08:07:28667.0[facility] BoyxgrgOZGYECMQRM4356-36-91 08:07:00 14.7[facility] FxvxknsQCQWWVHWIQ1358-35-26 08:07:0034.8[facility] HermannBEDSIDE GLUCOSE DOEFLED2274-79-11 02:08:85421.0[facility] CwjyzzoULWZHHFIU7894-30-70 14:30:002.0[facility] NnwlqunDGCQUXDNV5153-98-41 07:41:000.042[facility] KZFWPMLRA6092-51-17 07:41:0031.0[facility] IcdwmvnVQVWRMRTG6574-36-99 07:01:001.6 [facility] AggaxomUCGRJJUCWR4992-11-82 07:01:00 Test Item Value Reference Range Interpretation Comments INR (test code = INR) 1.15 1 0.85-1.17 N [facility] YsgyyfnHEDZTPMBHD7168-61-03 07:01:00 Test Item Value Reference Range Interpretation Comments PT (test code = PT) 14.7 s 12.0-14.7 N [facility] HvgufyyVYBUWPUTQA9039-26-00 07:01:00 Test Item Value Reference Range Interpretation Comments PTT (test code = PTT) 30.3 s 22.9-35.8 N [facility] KruwqfjWFWEWLZMK2470-58-99 06:50:0049.0[facility]annCHEMISTRY 2011-03-14 06:50:0023.0[facility] LlgceohRNIMOTZQD6870-21-47 06:50:004.3[facility] GbuybxmNYJXJAPVQ0623-23-48 06:50:00 Test Item Value Reference Range Interpretation Comments A/G Ratio (test code = A/G Ratio) 0.8 1 0.7-1.6 N [facility] EsjcnzmFTSPXUKZV8069-79-58 06:50:003.4[facility]annCHEMISTRY 2011-03-14 06:50:0033.0[facility] RsbqxjoLUWAZKHCN0980-47-34 06:50:0027.0[facility] OhfhvltGIYXYWOES1841-74-00 06:50:000.4[facility] BxtlqnyDIHYLAMQR0405-27-33 06:50:006.2[facility] GyksploDDXEBWPZZ3245-65-31 06:50:75888.0[facility] DBBLQIOKN8820-76-99 06:50:002.8[facility] NktltlyYEKCIWFSL3681-10-27 06:50:00 Test Item Value Reference Range Interpretation Comments B/C Ratio (test code = B/C Ratio) 14.0 1 6-25 N [facility] XrpjnuoSZHBAALCC5402-56-56 06:50:008.4[facility]annCHEMISTRY 2011-03-14 06:50:0021.8[facility] DjwzfpkKYEZURQEY2706-78-69 06:50:0019.0[facility] PcdsuhyYBOJOOXLT8865-70-71 06:50:05700.0[facility] GzzahmcTLPLZZPOO0691-91-71 06:50:01146.0[facility] KxsyumeTHYTSVAZK7199-34-56 06:50:003.8[facility] TEAAUHKYA3033-78-57 06:50:0020.0[facility] ZuhyugrBQLLETFRM9611-84-63 06:50:001.4 [facility] RltzsgvEOVKGAUOX6152-41-61 06:50:0091.0[facility]annCHEMISTRY 2011-03-14 06:50:001.2[facility] GyeliwtEFIRULTIYA2904-92-42 06:50:0010.3[facility] UrfxuocUUNPMNIHHT3384-72-71 06:50:006.2[facility] VkxmmfaQUYTTBQLNO4900-20-47 06:50:0061.3[facility] ArwkddeENILJCSZRF5412-12-04 06:50:0022.2[facility] DBMZTKGUFX7886-00-58 06:50:000.0[facility] GmeetacSFBPVNZKDL0137-98-76 06:50:001.2 [facility] KmfmngdVCWBXBOCJW5198-40-46 06:50:007.3[facility]annHEMATOLOGY 2011-03-14 06:50:000.0[facility] AtveqydGOXJWJPRKG8035-34-90 06:50:000.7[facility] CxzkerlLXDGVFHUBS6710-72-10 06:50:002.6[facility] BvaimzhPBGBJGIHJV7141-48-27 06:50:00Slight 52*ABN*(03/14/2011 01:50:00) ??[facility]annHEMATOLOGY 2011-03-14 06:50:00Slight 51*ABN*(03/14/2011 01:50:00) ??[facility] FIPKWKBIBN4051-81-30 06:50:001+ 49*ABN*(03/14/2011 01:50:00) ??[facility] FVUSZWFGOV6691-60-68 06:50:00Slight 50(03/14/2011 01:50:00) ??[facility] MSEPCIICWI9551-74-45 06:50:0013.3[facility] ZrjeezgCVPBOYMOMQ0126-79-69 06:50:00 11.8[facility] IzighxjRGOZLKNNYS9112-06-72 06:50:004.18[facility]annHEMATOLOGY 2011-03-14 06:50:0090.6[facility] BqacnzpRPMLLRCOHX3996-09-54 06:50:00 Test Item Value Reference Range Interpretation Comments MCH (test code = MCH) 31.8 pg 27.0-31.0 H [facility] JhslrwfZDNSJRNYZK0731-30-81 06:50:0037.9[facility]annHEMATOLOGY 2011-03-14 06:50:0010.0[facility] ZhtofcjWVRRNGTMMM7730-88-89 06:50:0013.5[facility] BnwrrgmZXTIHJKWOA5436-15-31 06:50:94319.0[facility] RkhpnfzRDPGEEAEPF6523-78-79 06:50:0035.1[facility] VssxzguQJLAVELTW3642-15-91 06:50:0027.0[facility] PDFSEWAOK5345-12-45 06:50:003.2[facility] ZkyjgljKILBBUGSR1311-16-62 06:50:002.9 [facility] HjtngirFDNSEBRUH8418-58-81 06:50:0032.0[facility]annCHEMISTRY 2011-03-13 06:50:006.1[facility] UqufcmySIIXQIRXK9448-61-88 06:50:00 Test Item Value Reference Range Interpretation Comments A/G Ratio (test code = A/G Ratio) 0.9 1 0.7-1.6 N [facility] TkqpsycVIAPKBHQL4032-92-42 06:50:000.3[facility]annCHEMISTRY 2011-03-13 06:50:000.4[facility] OjefgpxFVNUOHAFZ5498-75-64 06:50:000.1[facility] JqwxdqdLBIOZPIVO8303-53-07 06:50:63607.0[facility] HermannBEDSIDE GLUCOSE TESTING 2011-03-07 16:38:39070.0[facility] HermannBEDSIDE GLUCOSE OUQJHZG6445-07-08 10:32:32583.0[facility] HermannBEDSIDE GLUCOSE YECIWIV6071-82-46 02:38:69698.0 [facility] NrxjvpvQIIVKPOGK8355-56-69 07:36:00>60.0[facility]annCHEMISTRY 2011-03-05 07:36:05213.0[facility] KwkicbcDFDMGOKUN9884-05-11 07:36:19560.0 [facility] ZfdugcuKGGMHDAYD6187-06-76 07:36:003.8[facility]annCHEMISTRY 2011-03-05 07:36:008.4[facility] TxttodaQGDNFUKAU6525-36-31 07:36:0015.8[facility] PxqdkikHECLWWECW6977-73-38 07:36:0025.0[facility] MzfjucsQAPMPWCKQ7848-65-08 07:36:0016.0[facility] HeooidbSPKEZXXAR4986-57-49 07:36:000.9[facility] PTSBKBAWP8228-53-22 07:36:0077.0[facility] RxohlypTSEMBFANYY1349-52-01 07:36:00 45.6[facility] OqzgluiROYUBMJPGL9071-48-48 07:36:0010.4[facility]annHEMATOLOGY 2011-03-05 07:36:003.5[facility] HpdbtpaKWMBUOAZGU7494-56-25 07:36:0038.5[facility] MvkkxsdUKIPDKHNLI4260-41-69 07:36:000.4[facility] FgqaqisVYUXFWXEKZ1934-04-51 07:36:000.2[facility] CstaxcpKDDKZXLDMJ8403-71-29 07:36:002.0[facility] MKYVAJNLWI2929-18-49 07:36:005.8[facility] UvrsjwgWIVWAUAEAB2371-20-57 07:36:004.9 [facility] IdhujbrULYQLMQBAH8074-27-57 07:36:001.3[facility]annHEMATOLOGY 2011-03-05 07:36:009.9[facility] GjjjolkVFMTHFIDNE8080-61-71 07:36:0092.6[facility] BifdawvTBYLTXMVLP6616-78-85 07:36:003.08[facility] IogxsrwMQBBPRLGGL5181-98-45 07:36:0012.7[facility] WjzbeemSTZUIBJXYT5840-01-68 07:36:00 Test Item Value Reference Range Interpretation Comments MCH (test code = MCH) 32.0 pg 27.0-31.0 H [facility] VtymridPMDYWXBOOO4888-36-64 07:36:0028.5[facility]annHEMATOLOGY 2011-03-05 07:36:0034.6[facility] XyrwqrgJNHMKYUBEV1218-97-14 07:36:33983.0 [facility] TmfreozMIPRCXXIVS7418-79-96 07:36:0016.5[facility]annHEMATOLOGY 2011-03-05 07:36:009.1[facility] GkkbcsfUUMHYSWSHD5537-80-50 10:21:50560.0[facility] GsqdspyPQOEKOCZXR2867-92-89 10:21:0016.4[facility] KsnjnppNKRJZYTTTW9038-45-68 10:21:0033.6[facility] RecizlmNAPBKYFHPE6089-73-92 10:21:00 Test Item Value Reference Range Interpretation Comments MCH (test code = MCH) 31.8 pg 27.0-31.0 H [facility] MragksmKJNWSDOERT7204-63-98 10:21:0012.4[facility]annHEMATOLOGY 2011-03-03 10:21:009.4[facility] VviitesBYNKJDJMWG0869-99-62 10:21:0094.6[facility] RsxmnvuALLWJBQUUS8088-06-14 10:21:0030.8[facility] NaumyriXDSBHFTUKJ3735-66-81 10:21:0010.4[facility] HsxnfroCFSGGWOPCB5671-39-75 10:21:003.25[facility] RWVTGQULOD9186-43-72 10:03:0016.0[facility] WivrvglYLTPMPNIGS9169-89-05 10:03:00 9.1[facility] CjxpankNHGVZOOLFY0064-22-73 10:03:04269.0[facility]annHEMATOLOGY 2011-03-02 10:03:003.23[facility] QkpcwprPYMXXPSEBN0166-88-64 10:03:0094.5[facility] PrtqnrhWBDBHFFZKK5356-06-94 10:03:0030.5[facility] KkxozduXWCMRLPWYD2979-25-75 10:03:0010.3[facility] CvafmoqJDXSPDSHIZ3955-07-19 10:03:0033.6[facility] EOLYVAVGMB0937-51-01 10:03:0012.7[facility] KbefztiGONEGOBDCS5566-18-51 10:03:00 Test Item Value Reference Range Interpretation Comments MCH (test code = MCH) 31.8 pg 27.0-31.0 H [facility] RydecfdJIXAVUHRCV8925-19-85 20:38:00[facility] 2011-[facility]-01 20:38:00Clear (03/01/2011 15:38:00) ??[facility] HermannURINALYSIS 2011-03-01 20:38:00 Test Item Value Reference Range Interpretation Comments UA Spec Grav (test code = UA Spec 1.[address] [facility] CenterPgysnslUZLBBKKRNF3485-46-81 20:38:00Yellow *NA*(03/01/2011 15:38:00) ?? [facility] OdestkzVKYDDAKDMR0961-04-33 20:38:00 Test Item Value Reference Range Interpretation Comments UA pH (test code = UA pH) 5.5 1 5.0-8.[address] [facility] CenterNewwwoaDVVQKVRBUX5813-60-86 20:38:00Negative mg/dL *NA*(03/01/2011 15:38:00) ??[facility] DkfxqzpILIESKABOU5095-49-14 20:38:00Negative mg/dL *NA*(03/01/2011 15:38:00) ??[facility] UguheteCZSYGKMNMK5619-05-90 20:38:00 Negative *NA*(03/01/2011 15:38:00) ??[facility] MlcvuofPDFEDVFXYK0434-21-29 20:38:00Negative (03/01/2011 15:38:00) ??[facility] FotdxgvDZTTVZZWJH8635-99-21 20:38:00<1.0[facility] MhdhinpIGIZENVQLF2052-94-19 20:38:00Negative (03/01/2011 15:38:00) ??[facility] DypolpmRTXGYNHDHR7197-00-55 20:38:00Negative (03/01/2011 15:38:00) ??[facility] SuulwcrRCRQYONMQY8433-24-16 20:38:00Few /LPF *NA*(03/01/2011 15:38:00) ??[facility] VnjivdlQFIHMGINYW7434-76-74 20:38:00 Moderate /LPF *ABN*(03/01/2011 15:38:00) ??[facility] AoujeanLWXAPDVMCC2513-06-45 20:38:001.0[facility] ZucwytpBJEVQJRTFZ0755-02-49 20:38:0010 mg/dL *ABN*(03/01/2011 15:38:00) ??[facility] NiskzzoNLQNAIWKHZ2270-46-50 08:19:005.7 [facility] SiylvefIYTKXHOSSU1450-42-58 08:19:004.8[facility]annHEMATOLOGY 2011-02-28 08:19:001.0[facility] UbyjrgxHBUYQXDFFX2198-05-05 08:19:008.9[facility] FjkvqjsBIYTMGCALB1076-32-78 08:19:002.8[facility] PtwvdsrOAIQLJXXIE3301-37-96 08:19:0047.3[facility] SsmmesgPAZLPYUWZJ5406-85-09 08:19:0040.0[facility] DGSNCZVUCF8621-54-94 08:19:000.1[facility] BktzsllHQMKNHXOHB0909-29-89 08:19:001.1 [facility] QnekeiuGZFYGLNBES9062-28-88 08:19:000.3[facility] HermannCHEMISTRY 2011-02-27 08:43:002.8[facility] OkukupwMWSOKAZYK7357-55-06 08:43:00 Test Item Value Reference Range Interpretation Comments B/C Ratio (test code = B/C Ratio) 14.0 1 6-25 N [facility] VpxfflaUEFQOQVOL9545-14-58 08:43:0013.8[facility] HermannCHEMISTRY 2011-02-27 08:43:00 Test Item Value Reference Range Interpretation Comments A/G Ratio (test code = A/G Ratio) 0.8 1 0.7-1.6 N [facility] YnozwpkPJRMCTIDN1663-75-93 08:43:005.0[facility]annCHEMISTRY 2011-02-27 08:43:008.4[facility] FldudwoMOHCPABFS7863-87-76 08:43:0024.0[facility] UuhorbfFABHVGAET2076-76-61 08:43:002.2[facility] PnvbxpmCBHGDGOLO3961-29-48 08:43:000.3[facility] UjucdntRXBUBOEKL5207-71-24 08:43:0021.0[facility] VEHSFGFTB2087-22-07 08:43:0098.0[facility] FjjlxogVSAVEMLTS4446-45-50 08:43:0028.0 [facility] MuzncczMOIVFAXER6230-73-41 08:43:0010.0[facility]annCHEMISTRY 2011-02-27 08:43:003.8[facility] SiztqmfELOWMAZZN7489-50-74 08:43:32937.0[facility] NnqceehXXNWWQELE2282-62-63 08:43:000.7[facility] TqtakveABHVTTXAK1487-88-45 08:43:67612.0[facility] GrsyzprVFNKOHQHD7375-74-35 08:43:38248.0[facility] VQZSAVZOPO7143-64-92 08:43:000.9[facility] EkwvjrpOSKNSTSZWW7996-26-83 08:43:000.3 [facility] HczzhgmJYLXPRFZMO9398-98-33 08:43:003.3[facility]annHEMATOLOGY 2011-02-27 08:43:000.1[facility] PptykcbWJGJOBVYHW5930-78-70 08:43:001.2[facility] GmvsbnzIENHVKTIYQ9696-80-74 08:43:006.0[facility] GqpihajLKKTBGIKLQ1430-96-28 08:43:008.3[facility] SmotbhwBJJSSCVKVT0556-08-60 08:43:003.1[facility] UVTQHNVTYJ9173-87-17 08:43:0056.6[facility] IageqvvRQQFSGMESL2568-81-85 08:43:00 30.8[facility] HermannBEDSIDE GLUCOSE OXHPXRM2786-15-17 22:17:19375.0[facility] HermannBEDSIDE GLUCOSE WJJKXDF6398-56-09 18:30:81161.0[facility] HermannBEDSIDE GLUCOSE KSYQYXC1560-91-82 11:15:11325.0[facility] BnenyxsJPZAMNHGE1873-88-14 06:52:0015.6[facility] NedjllqVNMJXABZY8325-34-54 06:52:0025.0[facility] XCWJOOWOP6769-72-76 06:52:007.9[facility] YgtuwmwCCNTGSNXD4506-52-36 06:52:50448.0 [facility] HrrrdvxNIHGLJIMQ1174-57-90 06:52:003.6[facility]annCHEMISTRY 2011-02-26 06:52:000.5[facility] OufppkkIXYZCLYBY1791-25-30 06:52:77875.0[facility] YkxyvtsAIKAQOIIS8574-27-97 06:52:009.0[facility] RaoqtakFVGBGWWIZ4909-16-40 06:52:33052.0[facility] YnncefqTCGDLCZZAD3345-59-43 06:52:0010.5[facility] VFGDOAPFKI1447-16-03 06:52:0031.2[facility] XjlbxrtFIMBZDKZV0971-29-33 08:43:001.9 [facility] UueonchJAIDOVCWW2144-13-00 08:43:007.9[facility]annCHEMISTRY 2011-02-24 08:43:41229.0[facility] AicbfjuPLOOTBRFN4099-17-54 08:43:0024.0[facility] KbmlhmxUFDJWVZQL5714-20-67 08:43:81464.0[facility] CewchrnKCYGTGCSO5951-06-94 08:43:000.6[facility] VeyeljsGHZNTTFIY7879-52-87 08:43:0012.0[facility] THVRTLAFU2739-78-19 08:43:0089.0[facility] QplhvgjESEGMTSHF7879-24-74 08:43:003.7 [facility] KidsqkfBDUDCPYZB7839-76-13 08:43:0015.7[facility]annHEMATOLOGY 2011-02-24 08:43:0030.7[facility] LfbycpzGTJOQFPLRT6184-26-57 08:43:0010.3[facility] HjntejiCIOQKKGNHQ6890-99-54 08:43:08567.0[facility] NageuqtWSFZNBLKA5172-00-28 07:22:001.7[facility] MkbmelmEYVXBUWFH9657-30-29 07:22:004.64[facility] AADMDLJKQ3203-08-51 07:22:001.1[facility] JauagtvMPHLYOTNP3560-16-14 07:22:001.16 [facility] AbufkbmSXOUBRLDO2771-82-29 07:22:004.4[facility]annCHEMISTRY 2011-02-21 07:22:0016.9[facility] YgubyykSOXEYAZRI4799-71-34 07:22:006.0[facility] JtqhuheUOXXWOPVO4808-82-68 07:22:000.4[facility] RijszbfXAQNQLWCE5429-68-30 07:22:31829.0[facility] FokvxvgDIQQMMWFQ8911-86-90 07:22:004.9[facility] CJMANFKIA0948-91-71 07:22:44537.0[facility] KhdntiuDDVEMMIAY3811-83-86 07:22:007.7 [facility] YftfpphRIXCSMYRZ2875-40-91 07:22:62892.0[facility]annCHEMISTRY 2011-02-21 07:22:0019.0[facility] JemaxxmNYKNWGDIR9337-86-69 07:22:003.7[facility] CqmsdouXWUIQKRYZM7193-06-39 07:22:000.6[facility] SgzcdhdBHHUXJOKZP9011-27-79 07:22:000.9[facility] VduvultZDSMZULTHD3265-27-57 07:22:000.0[facility] IELVPHSOKD4046-96-39 07:22:006.9[facility] KwwjjqrBKFPNZTSLU0605-84-59 07:22:009.6 [facility] NlisdinCBJJKDYWCY4996-46-24 07:22:005.2[facility]annHEMATOLOGY 2011-02-21 07:22:000.3[facility] TgygohpRHYCHSCWWH9499-93-86 07:22:002.3[facility] JpblqcjGZRHADKSEN3438-19-43 07:22:0057.5[facility] MggiluoLBSKGYVZWY5623-05-26 07:22:0025.7[facility] CgbrfewQGXMAQOTTJ8058-30-61 07:22:0034.1[facility] IGVFHTTNQO9325-58-49 07:22:80130.0[facility] LctfhljAVNFXBAQEY3540-79-85 07:22:00 16.2[facility] GuigjlzXCOIBFTWFK1042-26-64 07:22:007.8[facility]annHEMATOLOGY 2011-02-21 07:22:0032.4[facility] MixxowpGHFPXCJLTK4327-23-19 07:22:0096.0[facility] HibfcwzRMMJBPFICN8630-42-66 07:22:00 Test Item Value Reference Range Interpretation Comments MCH (test code = MCH) 32.7 pg 27.0-31.0 H [facility] LbkvqlkSWIMKOOWEV7861-78-84 07:22:003.38[facility]annHEMATOLOGY 2011-02-21 07:22:0011.0[facility] BqsmebyBCAPYWIXZV3704-60-50 07:22:009.0[facility] RiapwvcXZQOMCRUF2167-50-28 14:50:003.1[facility] QsvkcbqAZAKJYBYM6929-54-16 05:50:003.4[facility] TdzigsyFOIQWDTBO0106-04-24 05:50:005.08[facility] FEYLGTYFT2419-09-05 05:50:001.28[facility] UrugtowUNJDYGYXD3524-45-23 05:50:001.27 [facility] NchcebtIIAEFOIPF6658-50-64 05:50:005.12[facility]annHEMATOLOGY 2011-02-20 05:50:0095.8[facility] XwdwufgMELCISIGMW7116-13-52 05:50:11662.0 [facility] GlqipzfAROHDRNVFT1348-13-15 05:50:007.8[facility]annHEMATOLOGY 2011-02-20 05:50:00 Test Item Value Reference Range Interpretation Comments MCH (test code = MCH) 32.2 pg 27.0-31.0 H [facility] BtrcdprHLFPWWPKQH3442-11-26 05:50:0033.7[facility]annHEMATOLOGY 2011-02-20 05:50:0016.5[facility] OkbjxwiKDIVMVBVUT7046-58-80 05:50:003.19[facility] WahjbveVNIOJQNSCJ6423-32-58 05:50:006.9[facility] SxgfcslKVMFBOOITL3477-52-50 05:50:000.4[facility] WvokbytENWYPJBQRW2703-65-72 05:50:000.0[facility] RVWPMADIWF4069-88-27 05:50:000.6[facility] LcspcfnNRENCBIBLD3995-13-56 05:50:00 63.4[facility] QewctqhKYBFOREYHN0977-44-97 05:50:0020.5[facility]annHEMATOLOGY 2011-02-20 05:50:009.3[facility] DikhjrxWTELGGGPTY9636-72-86 05:50:006.4[facility] YadtnikEXRIGBXMRV7205-64-02 05:50:000.4[facility] BtbquywOTQVMWMNUC4914-61-37 05:50:004.4[facility] UxozqujHHNSXFKYBJ0651-82-00 05:50:001.4[facility] YLTCEYWJY1519-50-17 21:20:001.02[facility] TnpgdghSJAOKPIEX5924-84-72 21:20:004.08 [facility] PbfftulJYJAPGXKF0137-65-21 21:20:004.12[facility] HermannCHEMISTRY 2011-02-19 21:20:001.03[facility] IecneamHZSDGQVKK2145-78-52 21:20:0066.0[facility] MjnptnwOMWOTWFCY8613-14-64 21:20:000.8[facility] EqunyqrCTYVCGEGY0535-03-21 21:20:002.3[facility] MxoqnayGTSBHYIWU0809-15-81 21:20:004.8[facility] LKMSDJJDF4489-48-37 21:20:0067.0[facility] YpupxalZTCEPCFAN7992-55-01 21:20:002.5 [facility] NnavqqpAUAALJXCC1694-91-42 21:20:00 Test Item Value Reference Range Interpretation Comments A/G Ratio (test code = A/G Ratio) 0.9 1 0.7-1.6 N [facility] WflswvoDGHFZYZIK3878-24-45 21:20:05232.0[facility]annCHEMISTRY 2011-02-19 21:20:00 Test Item Value Reference Range Interpretation Comments B/C Ratio (test code = B/C Ratio) 20.0 1 6-[address] [facility] CenterYiuqnpxLNFLPXFWZI4390-39-22 21:20:00 Test Item Value Reference Range Interpretation Comments PTT (test code = PTT) 29.4 s 22.9-35.[address] [facility] CenterVwavhlmUCGJFTKXWU2291-68-31 21:20:00 Test Item Value Reference Range Interpretation Comments PT (test code = PT) 13.9 s 12.0-14.[address] [facility] CenterJqdiivjXWBZORLNRC2161-64-17 21:20:00 Test Item Value Reference Range Interpretation Comments INR (test code = INR) 1.07 1 0.85-1.[address] [facility] CenterEmffbppFEICHLNLRM1684-97-70 21:20:003.4[facility] 2011-[facility] 21:20:00 Test Item Value Reference Range Interpretation Comments MCH (test code = MCH) 32.2 pg 27.0-31.0 H [facility] WsudjebXOMSPCWYWP4507-59-87 21:20:0095.7[facility] 2011-02-19 21:20:0033.6[facility] CtbeiopPMDEQPXNAZ6737-20-86 21:20:0016.7[facility] YczrwdhLHXNINMNOX3339-38-11 21:20:007.8[facility] IdtwhuhIIUANASEOY9126-48-14 21:20:93555.0[facility] AmhdaihZMWEIUFOOX4221-09-98 21:20:007.4[facility] ABSKOWPGAB7184-30-83 21:20:008.7[facility] HqripjfUNESAUIZZT3903-23-92 21:20:00 15.6[facility] JksjcbwXBGXHSAOGC1383-61-45 21:20:001.1[facility] 2011-02-19 21:20:000.emorial BdnrufoLJYZMGKDZB3719-25-35 21:20:005.3[facility] YmdcoxnQPVZKGNVOV6111-45-66 21:20:005.1[facility] QiocmezFASWLHMEFG1039-18-28 21:20:000.6[facility] AmbdnniIVZATSERGP6098-00-37 21:20:0069.8[facility] CGPJESLUHU8690-39-75 21:20:000.4[facility] XhdeymrVFFFLMAPTS8618-33-71 21:20:000.0 [facility] BflihyzHNBSHMGYR3676-24-67 21:00:001.1[facility]annCHEMISTRY 2011-02-19 17:32:06876.0[facility] EdidgwzQKQVULGDO9148-74-16 17:32:000.6[facility] DltcjrbIFCINNJVT1706-62-65 17:32:001.08[facility] EnpkmpfDMEYANNWE6501-22-67 17:32:34686.0[facility] NustkosEFJJRGGBJ2534-92-74 17:32:0029.0[facility] GNZGDWHVN0338-03-11 17:32:003.3[facility] DopdwvbGQUGNLCSP0475-49-35 17:32:59424.0 [facility] LocjwwhQEEFXPXLJ9011-41-91 17:32:0022.0[facility]annCHEMISTRY 2011-02-19 17:32:00-4.0[facility] QjgfglqULAAUMVVA0637-63-32 17:32:00 Test Item Value Reference Range Interpretation Comments POC A pH (test code = POC A pH) 7.33 1 7.35-7.45 L [facility] WsqvzcoGUVZYYBOG7125-39-82 17:32:0041.0[facility]annCHE[facility]STRY 2011-02-19 17:32:0037.0[facility] SfylazmARZRKKVPM0962-88-81 17:32:52381.0[facility]annBODY VKMKPL9044-93-50 16:00:0039.0[facility]ann[facility] WNSRXS2287-05-59 16:00:0070.0[facility]ann[facility] JTFFKT7139-26-26 16:00:001.0[facility] BODY PUFBPX2014-74-33 16:00:00Light Red *ABN*(02/19/2011 11:00:00) ??[facility]ann[facility] UCCRBC7396-84-75 16:00:00Slight *ABN*(02/19/2011 11:00:00) ?? [facility] MQCQFP0761-72-99 16:00:00Colorless (02/19/2011 11:00:00) ?? [facility] XAOLXX7855-88-67 16:00:441819.0[facility] FLUIDS 2011-02-19 16:00:00xxxxxxx (02/19/2011 11:00:00) ??[facility]annCHEMISTRY 2011-02-19 15:35:77679.0[facility] LirosyaRUNXTOZFG1086-56-11 15:35:003.2[facility] NdtrzmoTEMGJIRZX8011-86-35 15:35:001.1[facility] UlyrkkpOSMGBWVRL9304-73-27 15:35:000.7[facility] DjxufjzXIWFUAIUQ4317-71-72 15:35:00 Test Item Value Reference Range Interpretation Comments POC A pH (test code = POC A pH) 7.35 1 7.35-7.45 L [facility] RltrtnxCLHSUBRSO9760-81-89 15:35:0037.0[facility]annCHEMISTRY 2011-02-19 15:35:00-3.0[facility] KkcqrzfBQNGICTLG8193-79-23 15:35:0041.0[facility] KdkgfuhVMVGZSAPW0705-72-19 15:35:64916.0[facility] XkmaqfbKTJNUJQBJ2908-54-90 15:35:0023.0[facility] OeerihlMFJMVILHR5424-79-14 15:35:37873.0[facility] WIKESFVXF0752-16-17 15:35:82407.0[facility] QgvlilzWQTDUECIL1419-16-60 15:35:00 29.0[facility]annBLOOD BANK OITPPFA9096-81-01 15:33:00Negative (02/19/2011 10:33:00) ??[facility] RjqruepRZBZTCEQP9017-21-03 14:06:003.7[facility] YZWSLUVEE8792-47-48 14:06:001.1[facility] DzvtsjjUFGWGLRVL2061-51-47 14:06:90194.0 [facility] MolrqgeOUFTFCGWN8527-92-68 14:06:001.0[facility]annCHEMISTRY 2011-02-19 14:06:12447.0[facility] QkfahwlLPXJEFJGF8388-06-72 14:06:00 Test Item Value Reference Range Interpretation Comments POC A pH (test code = POC A pH) 7.43 1 7.35-7.45 N [facility] BjlsmsiQNVRCOADA5821-96-85 14:06:30373.0[facility]annCHEMISTRY 2011-02-19 14:06:00-1.0[facility] DlhyzflQEKUHBFTG0256-39-00 14:06:0023.0[facility] VhrthwsVUCSHDJUP1816-41-21 14:06:35758.0[facility] GgcqfthSQDLDNZDH0697-18-56 14:06:0034.0[facility] CehcgcfTROVWPZYN1429-82-37 14:06:0037.0[facility] VHNBLRUPS7663-33-68 14:06:0034.0[facility] BbyyubfBMNLNVJZP9106-10-56 11:00:0012.0 [facility] RuaighkXYNLBMQCR5981-73-07 11:00:33334.0[facility]annCHEMISTRY 2011-02-19 11:00:0012.0[facility] UuhfssmXULDOBIOP3760-16-58 11:00:000.6[facility] FugcyjpZCYYHDUDU0540-90-58 11:00:0024.0[facility] QgysksoKTWRISBEC0362-11-68 11:00:007.9[facility] FyvxfkaYIQRQWHPE8395-44-42 11:00:004.0[facility] ENRZJZEGW1036-47-51 11:00:62410.0[facility] MimrcflHVHMSXSOS1897-87-86 11:00:00 99.0[facility] BpsrctyQVYZKQPOGR8453-49-26 11:00:002.4[facility]annHEMATOLOGY 2011-02-19 11:00:000.7[facility] HaapwaxOARTGQUMGH1038-94-15 11:00:000.0[facility] NlsgkvnLFZGOTKFOE4382-32-97 11:00:000.6[facility] YvdtirzMZOZKZWZAV6544-50-50 11:00:002.4[facility] JibehhaTGWHALIYDH3688-80-77 11:00:0010.9[facility] FRQDUQSRNO6872-11-14 11:00:000.8[facility] TaeycfuLRKELKIVSP0413-20-34 11:00:009.4 [facility] JsecxqnJNQRRAKQTJ2590-06-60 11:00:0039.3[facility]annHEMATOLOGY 2011-02-19 11:00:0039.6[facility] HzoahwwYMEZYUEGLO8353-77-58 11:00:008.2[facility] QgvesfkKYKLPZZDXS2510-83-80 11:00:72440.0[facility] FewturlIGPKDLNRRG4091-91-04 11:00:00 Test Item Value Reference Range Interpretation Comments MCH (test code = MCH) 32.9 pg 27.0-31.0 H [facility] WgwqowdNZCTSEIXHY4768-54-68 11:00:0094.8[facility]annHEMATOLOGY 2011-02-19 11:00:0034.7[facility] EwdoxoxGOOVDGFQVL5965-82-55 11:00:0016.4[facility] YtierlqXBGTYTXDHQ1565-72-22 11:00:0010.7[facility] BsdttgqUXKTDDMVYA4147-26-11 11:00:003.26[facility] IxkuuidRBWGRSQILO2417-94-63 11:00:0030.9[facility] QTZEHTCPGF7439-42-38 11:00:006.2[facility] RpyynrdQTIEZLCAQS0636-17-62 11:00:00 Test Item Value Reference Range Interpretation Comments INR (test code = INR) 1.0 1 0.85-1.17 N [facility] MslnxnbPEOXUSBDNJ3565-74-76 11:00:00 Test Item Value Reference Range Interpretation Comments PT (test code = PT) 13.2 s 12.0-14.[address] [facility] CenterAevpthjVJDHSAMYYN3297-15-93 11:00:00 Test Item Value Reference Range Interpretation Comments PTT (test code = PTT) 30.3 s 22.9-35.[address] [facility] CenterannBEDSIDE GLUCOSE DHWZRSY8325-33-46 10:22:87027.0[facility] BEDSIDE GLUCOSE NKZXHHE5606-33-65 02:28:92634.0[facility] HermannBEDSIDE GLUCOSE KIEZCGG3720-73-20 00:46:70417.0[facility] CudtmkdRWVJNOTNQC7283-38-59 08:39:0094.3 [facility] GhsimokKMZZJZXGOS1114-20-60 08:39:0033.1[facility]annHEMATOLOGY 2011-02-18 08:39:0016.6[facility] KelkcecTRHYSIDYFV1487-93-87 08:39:00 Test Item Value Reference Range Interpretation Comments MCH (test code = MCH) 32.8 pg 27.0-31.0 H [facility] TogfjzkBORGBSNKKK3180-95-29 08:39:0034.7[facility]annHEMATOLOGY 2011-02-18 08:39:007.9[facility] EngkhzoCPWZXCRDTO0321-27-35 08:39:80467.0[facility] OdorzgbXJREKOKJHX6176-49-83 08:39:006.4[facility] RfmtofdFZOBZZABZF0017-95-94 08:39:003.51[facility] PxcxfyfAPIUUCULPG0528-15-65 08:39:0011.5[facility] CQUVQFJQAR5327-60-07 07:48:008.1[facility] WgyaftlDUINUHSQFP1158-82-84 07:48:00 Test Item Value Reference Range Interpretation Comments MCH (test code = MCH) 32.7 pg 27.0-31.0 H [facility] PqbqosoDWARASNDJW7380-42-79 07:48:0095.1[facility]annHEMATOLOGY 2011-02-15 07:48:0034.3[facility] VomtxleKPBBTBSJWU8012-13-24 07:48:46514.0 [facility] FfafnojVOWHIWQCTF3111-62-66 07:48:0016.5[facility]annHEMATOLOGY 2011-02-15 07:48:0012.9[facility] FdbooowEYPQGVELJB9075-21-24 07:48:0034.1[facility] HnhzxboWJHRUEDXIT2644-48-38 07:48:0011.7[facility] DmkudecIYFEPGORZR3706-00-70 07:48:003.58[facility] QuktterGXWBWXKJJE0390-69-04 07:48:000.1[facility] VVUSGEHCOM6943-45-74 07:48:000.4[facility] PxpqvefYFLAJBPYME0348-56-11 07:48:000.6 [facility] UkdawakWFXSNEFUQE3163-76-78 07:48:004.8[facility]annHEMATOLOGY 2011-02-15 07:48:0026.8[facility] SyjyehdBRBLVCJKRC2540-19-77 07:48:003.5[facility] ElgxgncDQPIVZNVAI7763-66-53 07:48:008.3[facility] UdpzblmGRPOIFADHG3165-90-45 07:48:000.8[facility] GqhnleuTTBZQSUCGN9821-10-02 07:48:003.0[facility] GYWGDUYUTN3430-85-98 07:48:0064.6[facility] NxmfniuGCAEEEKJT9755-95-69 09:47:003.1 [facility] LzgxhisMBGJVKIZV3220-45-16 09:47:002.7[facility]annCHEMISTRY 2011-02-13 09:47:005.8[facility] ReqstnkXNUIDOELU9224-33-85 09:47:00 Test Item Value Reference Range Interpretation Comments B/C Ratio (test code = B/C Ratio) 43.0 1 6-25 H [facility] VxhetjdFNUEDJARD0670-92-19 09:47:00 Test Item Value Reference Range Interpretation Comments A/G Ratio (test code = A/G Ratio) 0.9 1 0.7-1.6 N [facility] OlqsmveFVLEOWSEN9520-36-95 09:47:0052.0[facility]annCHEMISTRY 2011-02-13 09:47:30463.0[facility] XyhsnhhMEMENQUEM9972-44-60 09:47:00>60.0 [facility] KzhfxbfTCUQLWNBV0781-48-07 09:47:0016.9[facility] HermannCHEMISTRY 2011-02-13 09:47:008.5[facility] LealumlLDGFXQCCW9104-38-71 09:47:000.6[facility] XxsoorsIPTPEMOIQ9855-02-02 09:47:0049.0[facility] EcjwzhiYIMKUJUHW8703-11-66 09:47:0097.0[facility] OrgjnylASTFDDUGZ0074-47-93 09:47:004.9[facility] QBBRMTHTB6176-80-75 09:47:000.4[facility] GpegfpfOPOESMIDB0630-59-32 09:47:42431.0 [facility] ZinveevOZYMZIZXS4372-98-33 09:47:08795.0[facility] HermannCHEMISTRY 2011-02-13 09:47:0017.0[facility] PbzkvtoUWQEXCYYU1812-06-78 09:47:0025.0[facility] HjqsgslYSSZUEPYW2004-92-32 10:09:0018.6[facility] ZultquoXZAYLTONA7438-67-78 10:09:008.3[facility] KgmuierSZDOGXGAM1918-53-26 10:09:0063.0[facility] DNAFEJXYZ0939-74-14 10:09:0019.0[facility] ZdxcpryAJZBIBTME3095-64-30 10:09:000.7 [facility] OjbxtolUBIDDAMOG4149-53-47 10:09:76811.0[facility]annCHEMISTRY 2011-02-12 10:09:0097.0[facility] CokubptGIUYYJOCY7087-20-67 10:09:003.6[facility] SzgnjvlLLPCLPEUO1016-17-35 10:09:0023.0[facility] WcthvacEZEMONHUFR7066-66-52 10:09:001.0[facility] PmaemjrAJKXICWCVM6879-57-01 10:09:000.1[facility] UNANSUCYIX9069-27-86 10:09:000.2[facility] SlitzmcTNIQWRBZRT4644-33-38 10:09:004.9 [facility] BpzxcfvWDXMGPOBRE8464-92-07 10:09:000.7[facility] HermannHEMATOLOGY 2011-02-12 10:09:0012.2[facility] PurjryrGKZOIZCAET9320-81-49 10:09:005.5[facility] GshwmqxIXCSOOOJSZ7851-78-61 10:09:001.1[facility] TxelmdvUIRRQLCIHR8121-87-26 10:09:0066.2[facility] IndmijdOHVESACVBU9190-22-49 10:09:0026.5[facility] CJPCSUOWL4917-18-32 19:00:001.8[facility] OzznzgnXSRCSSHLQ7001-86-96 19:00:0057.0 [facility] LxzusoySEUHOSTYP8583-97-76 19:00:006.8[facility] HermannCHEMISTRY 2011-02-11 19:00:003.2[facility] HjvilbtAEMDDDXJG2858-17-60 19:00:003.6[facility] CnmzojvINPBLESIW8635-97-13 19:00:00 Test Item Value Reference Range Interpretation Comments A/G Ratio (test code = A/G Ratio) 0.9 1 0.7-1.6 N [facility] QlxwnnyWXZBZBLLR2967-26-83 19:00:0059.0[facility] HermannCHEMISTRY 2011-02-11 19:00:46288.0[facility] PxkdiswUWKPDNWCF3798-86-64 19:00:000.7[facility] CadlxzoHGWHNJPRH0691-85-55 19:00:00 Test Item Value Reference Range Interpretation Comments B/C Ratio (test code = B/C Ratio) 45.0 1 6-25 H [facility] WykyttuYOTFLCBOAU9652-05-62 19:00:001+ *ABN*(02/11/2011 14:00:00) ?? [facility] HermannSTOOL ASRQK4461-73-19 05:59:00None Seen 4(02/11/2011 00:59:00) ??[facility] KyzzrzsJASUHCSDH3087-04-48 19:39:00 Test Item Value Reference Range Interpretation Comments eGFR (test code = eGFR) 48.0 1 [facility] RuvegkxEDJRQUQXJ1091-52-66 19:39:003.0[facility] HermannCHEMISTRY 2011-02-10 19:39:00 Test Item Value Reference Range Interpretation Comments A/G Ratio (test code = A/G Ratio) 1.0 1 0.7-1.6 N [facility] LzprrxnRLGULMYZT5517-09-74 19:39:00 Test Item Value Reference Range Interpretation Comments B/C Ratio (test code = B/C Ratio) 23.0 1 6-25 N [facility] RscsmehVPWQYTLFD0176-61-59 19:39:0031.0[facility] HermannCHEMISTRY 2011-02-10 19:39:003.1[facility] JyjeilcLIZBJQBKX1253-11-02 19:39:0064.0[facility] AiljimlYBTGIMNGX9529-65-47 19:39:006.1[facility] OuwgrsyMRATMFLWX4397-55-36 19:39:000.5[facility] AmmdzhwOWZFBPDZS6499-92-30 19:39:64674.0[facility] MDTRTVEQNV2730-60-80 10:19:00Slight (02/08/2011 05:19:00) ??[facility] NBHTKCSPTU1913-49-08 10:19:00Slight (02/08/2011 05:19:00) ??[facility] DRFRLTVZDZ7317-87-49 10:19:001+ *ABN*(02/08/2011 05:19:00) ??[facility] XKOJUROZCV5102-87-97 10:19:00Normal (02/08/2011 05:19:00) ??[facility] MLSVKBPSID0159-36-26 08:33:000.0[facility] HermannBLOOD BANK JLFGOCF7755-99-34 19:12:00Negative (02/05/2011 14:12:00) ??[facility] TbbjikoZQBQIOZCQ5877-78-82 02:09:0064.0[facility] MfowhxtQSPKGWISJ0838-29-78 02:09:000.03[facility] TZFAIMCKA4522-01-05 18:20:0071.0[facility] IsvdrlnOTPAUNHSS0874-02-54 18:20:000.05 [facility] AyiforiSUNGJMEKKU4213-66-83 22:21:00??[facility] HermannURINALYSIS 2011-02-02 22:21:00Negative (02/02/2011 17:21:00) ??[facility] HermannURINALYSIS 2011-02-02 22:21:00<1.0[facility] WgnpduaCFTEMWKZVK3841-22-54 22:21:00 Occasional /HPF *NA*(02/02/2011 17:21:00) ??[facility] VxmrcztOZTFVWEAOB3035-76-51 22:21:00Negative (02/02/2011 17:21:00) ??[facility] LzdjbbuTEWQSXCJWI5307-49-41 22:21:00Negative mg/dL *NA*(02/02/2011 17:21:00) ??[facility] HermannURINALYSIS 2011-02-02 22:21:00Negative *NA*(02/02/2011 17:21:00) ??[facility] Jorge Alberto NFIBVRBFIE3571-72-92 22:21:00Negative (02/02/2011 17:21:00) [facility] PPYQKQRQXD4310-04-34 22:21:00Negative mg/dL (02/02/2011 17:21:00) ??[facility] IrpmxmkGZBHPKILGW0502-39-28 22:21:00Negative mg/dL *NA*(02/02/2011 17:21:00) [facility]XgjwvxnFTMELXQFBI0254-90-80 22:21:00Light Yellow *NA*(02/02/2011 17:21:00) ??[facility] PesijlnVALFTUMIBS1802-88-41 22:21:00Clear (02/02/2011 17:21:00) ??[facility] XxdkuygYJACNEOOUZ5152-93-65 22:21:00 Test Item Value Reference Range Interpretation Comments UA Spec Grav (test code = UA Spec 1.004 1 N Grav) [facility] FyqcsklEXVNOEBQRN6164-02-50 22:21:00 Test Item Value Reference Range Interpretation Comments UA pH (test code = UA pH) 7.0 1 5.0-8.0 N [facility] RxtuotbJLCINQCSS7757-89-24 10:30:000.98[facility] HermannCHEMISTRY 2011-02-01 10:30:000.711[facility] AjaqawgIVEBPCYOHB3005-87-05 10:30:0019.4 [facility] HermannBEDSIDE GLUCOSE RQIVGSZ4148-49-22 10:46:71321.0[facility] YBVDIGDOJ2012-43-72 08:36:002.9[facility] YtqvjniXJRRWGKBR4571-75-23 08:36:0024.0 [facility] CyknjmmDIZJLBURV1387-58-32 08:36:007.7[facility] HermannCHEMISTRY 2011-01-31 08:36:42467.0[facility] IsumljxKJMXHCHSA5069-36-56 08:36:27898.0 [facility] UjbxbekHTHTXHKML9989-10-29 08:36:003.9[facility] HermannCHEMISTRY 2011-01-31 08:36:0017.0[facility] AgyofckJAPDJTUON7084-85-76 08:36:000.7[facility] CjbwwbgPFGCNNKKY5053-21-06 08:36:58338.0[facility] KwbjujfTJFSAMEJR0159-26-87 08:36:0017.9[facility] MedvdnnYJIBAMBKA4767-10-46 08:36:001.9[facility] EJDHHKIOY9191-26-97 08:36:001.13[facility] EqbqykdMTJSEJGDM1570-45-82 08:36:001.09 [facility] MskbtjtLDFOCEXKF7334-95-43 08:36:004.52[facility] HermannCHEMISTRY 2011-01-31 08:36:004.36[facility] PkvnnebLAWPEGMFTX0876-98-88 08:36:00Slight *ABN*(01/31/2011 03:36:00) ??[facility] VjsqbuaLFFEMOGPVE1388-78-72 08:36:001.4 [facility] XqbpbsqEUVDBOWGRO1421-14-57 08:36:003.0[facility] HermannHEMATOLOGY 2011-01-31 08:36:0018.6[facility] UgawstkQAIRVYDMWR4048-60-96 08:36:001.6[facility] JqypzhqZJFPYNIDIZ4490-45-60 08:36:002.0[facility] KqimijrTCQWXBFIIO6315-04-59 08:36:007.0[facility] XttimbuWPTJMIHPJW6724-62-41 08:36:006.0[facility] GRIICOUWOU4588-34-48 08:36:0079.0[facility] ZqjnxvwYRHXEHEODJ7401-63-42 08:36:00 2.0[facility] CaxhwrtUEBOXPLPMG5142-98-04 08:36:00Slight (01/31/2011 03:36:00) ?? [facility] GwejybrKLLMZLAERP2722-19-75 08:36:00Slight (01/31/2011 03:36:00) ?? [facility] NockjyjTHHDXLWMQY2295-48-63 08:36:00Present *ABN*(01/31/2011 03:36:00) ??[facility] CurzuihAREGAVFAYO3477-23-59 08:36:000.0[facility] HermannHEMATOLOGY 2011-01-31 08:36:001.0[facility] WooipbnMIJFIDUXZG6921-36-83 08:36:0015.3[facility] QrgyhjvSSRULMAMDY7510-83-11 08:36:0010.1[facility] DvvnkpoAUNHUSCJXP6870-21-50 08:36:84072.0[facility] HaysmzyXOVTDFAARX0748-99-86 08:36:0037.3[facility] PTCENCAVOI4035-35-98 08:36:0032.7[facility] OjkmtkkDKAIAFTTCY5924-91-34 08:36:00 94.8[facility] ZtgztpfFQOYLTNJFM2974-42-63 08:36:00 Test Item Value Reference Range Interpretation Comments MCH (test code = MCH) 31.0 pg 27.0-31.0 N [facility] GzylibnZNQRTENLLB5999-13-45 08:36:0023.0[facility] HermannHEMATOLOGY 2011-01-31 08:36:003.93[facility] JyicmggNHVMQWRZUZ4429-19-76 08:36:0012.2[facility] HermannBEDSIDE GLUCOSE BRBTQSW8215-77-88 05:49:44072.0[facility] HermannBEDSIDE GLUCOSE TOPBBXS8989-64-90 01:36:61644.0[facility] UwgzayqPLTDWLTKU5333-74-00 15:02:002.7[facility] XcddcwpCWSNUZKBB8396-19-98 15:02:003.7[facility] GWUPJVNEX9824-59-04 15:02:004.2[facility] PqkslsvTZLPHWBZI6447-57-02 15:02:004.24 [facility] PxufqluKSRAOWPQU4499-42-36 15:02:001.05[facility] HermannCHEMISTRY 2011-01-29 15:02:001.06[facility] DqpwafvZFBGXZEFO0688-48-76 15:02:002.4[facility] RibzmxoWRWXKVXZI7382-63-94 15:02:0015.0[facility] MrbexnpVJLWRSKXQ5304-73-78 15:02:0023.0[facility] GezmkxeNPQNKPLWZ5545-74-21 15:02:000.8[facility] RTYZJCIPS5083-85-05 15:02:14841.0[facility] TswolzvYFBJWGQQR8207-65-56 15:02:004.0 [facility] QpxoviiCLHTDNXSA6384-10-89 15:02:20568.0[facility] HermannCHEMISTRY 2011-01-29 15:02:96226.0[facility] FtotgxjQFPBKSEKP5101-80-72 15:02:0024.0[facility] UuyldxrQRTUBFFSI0948-50-23 15:02:007.8[facility] FkjkgahFAOIHTWKUX5632-65-17 15:02:00Slight *ABN*(01/29/2011 10:02:00) ??[facility] WnibpajMXIOAGBDTN4783-47-98 15:02:00Slight (01/29/2011 10:02:00) ??[facility] EfndnxnWSNZPXRNKL9437-45-73 15:02:000.0[facility] JkstafeYUXADNWLBN5088-76-95 15:02:001.0[facility] AWKJKRKGKV9620-27-07 15:02:0081.0[facility] DelvzyoECPMVEJBZP0640-84-05 15:02:00 9.0[facility] JsbjzoqGTZDZLWEKO1568-68-00 15:02:005.0[facility] HermannHEMATOLOGY 2011-01-29 15:02:001.0[facility] UfbscibLNJUJQMYKX2553-24-00 15:02:002.0[facility] QinobfxCTRKXBAYIQ1857-56-90 15:02:002.0[facility] RvtolmdTKYFTLSZJX2553-58-13 15:02:001.0[facility] KqhwfffZVOFKOJDIJ4760-13-18 15:02:001.8[facility] YLJSDQAKVD4200-73-80 15:02:0016.3[facility] UjuqmaaNYKQECXEBC8040-66-21 15:02:00 9.4[facility] TlkyfgkRLKFKDWVGW8114-82-53 15:02:0033.9[facility]annHEMATOLOGY 2011-01-29 15:02:0094.0[facility] OckjscdHZBRKXMNOS6364-20-50 15:02:00 Test Item Value Reference Range Interpretation Comments MCH (test code = MCH) 31.5 pg 27.0-31.0 H [facility] YhxalybPRESQLESWF1283-68-36 15:02:0033.6[facility]annHEMATOLOGY 2011-01-29 15:02:0016.1[facility] VjniuozXWLYBWZRGD4899-86-91 15:02:36443.0 [facility] RwsyizcYYXESTWIQR4081-69-54 15:02:0019.6[facility]annHEMATOLOGY 2011-01-29 15:02:0011.4[facility] QhvgumnPRVPBGBDKF3137-94-66 15:02:003.61[facility] RibtlxsUUSXSJYYJ7477-87-95 06:30:0014.2[facility] LttgrzjKSOMLILVH7482-53-84 06:30:44744.0[facility] XrxngkoXBOKJDHPK3166-70-13 06:30:49097.0[facility] VHNXHBHFO5942-14-30 06:30:003.2[facility] FiwjwjtKZNGZCITW1713-08-10 06:30:0025.0 [facility] WqtmwquTVGZUPNJZ0598-72-13 06:30:007.5[facility] HermannCHEMISTRY 2011-01-28 06:30:0057.0[facility] DcudolkMETOWDCNF1927-93-47 06:30:0021.0[facility] ZgizeygWGALRYWDI7334-22-22 06:30:000.7[facility] MmnovgnHZZOLUNOZ9926-38-05 06:30:003.2[facility] FvfckvhMRIFMYEOM3968-45-16 06:30:002.2[facility] NDKRBINOA0135-99-05 06:30:001.09[facility] YzywlkaXPWJOTKOP1397-10-76 06:30:001.06 [facility] KmkozucNOKVICYEH2958-99-38 06:30:004.36[facility]annCHEMISTRY 2011-01-28 06:30:004.24[facility] OhiwlqdAOIOPJIUBO7832-79-25 06:30:34466.0 [facility] XriuxfrLOPOYTLGIC1975-08-82 06:30:0010.4[facility]annHEMATOLOGY 2011-01-28 06:30:00 Test Item Value Reference Range Interpretation Comments MCH (test code = MCH) 31.1 pg 27.0-31.0 H [facility] JlyxgzlAIEMHDZBMQ6688-24-76 06:30:0033.3[facility]annHEMATOLOGY 2011-01-28 06:30:0016.0[facility] SklvrfjNYAEOHVKPX1472-36-31 06:30:0032.3[facility] TflffyqGUZLSEXKIX6907-51-47 06:30:0093.5[facility] DmvqykhBDGDZGZBGW8306-36-19 06:30:003.45[facility] RjirivsEYODZJEVQF2576-50-26 06:30:0010.7[facility] WKWYGRPVFF3489-70-64 06:30:0020.1[facility] CmniqymHVFHJZAVXV7494-14-03 06:30:00 0.0[facility] UqoccbhUJBCDDHWUW4338-49-60 06:30:004.1[facility]annHEMATOLOGY 2011-01-28 06:30:0018.0[facility] SlbfatkAHWCRFTJLZ6713-88-19 06:30:000.0[facility] WkuucjcZXEPWLSVTL6512-77-71 06:30:006.6[facility] GrzeigcRXHPAKXDRL4541-49-68 06:30:000.0[facility] BhyzekvSWPVEPHAWV1928-07-88 06:30:000.0[facility] OASOVMELLF8864-29-93 06:30:000.8[facility] SdorirnGYPINWHHFB3332-73-21 06:30:001.3 [facility] YqehybyDPNOEMZBLS7185-99-32 06:30:0089.3[facility] HermannCHEMISTRY 2011-01-27 09:07:51499.0[facility] LktvhjcFERYTNXJR5915-06-96 09:07:00 Test Item Value Reference Range Interpretation Comments POC A pH (test code = POC A pH) 7.56 1 7.35-7.45 H [facility] KoikkgvNVVIJYQAK9778-96-17 09:07:75928.0[facility]annCHEMISTRY 2011-01-27 09:07:0037.0[facility] VpvgskdULPDYUFQO6237-92-40 09:07:004.0[facility] MspyzvrTQPLXKNZI2381-96-48 09:07:41987.0[facility] QgaxcrkZBRUPTBMM2388-23-82 09:07:0025.0[facility] QjgzspkKTRKRRTCZ3578-64-85 09:07:0028.0[facility] GHMWRHQAD8700-34-93 05:14:48809.0[facility] NjvlyzcVFXVEWMKTT7450-52-23 05:14:00 Test Item Value Reference Range Interpretation Comments PTT (test code = PTT) 25.2 s 22.9-35.8 N [facility] ZnsckabKMQAYEYJWM9258-90-10 05:14:00 Test Item Value Reference Range Interpretation Comments PT (test code = PT) 15.8 s 12.0-14.7 H [facility] CsljoylQAOBOLCBIS4576-37-93 05:14:00 Test Item Value Reference Range Interpretation Comments INR (test code = INR) 1.26 1 0.85-1.17 H [facility] HffoulwGBDONZDFMB6113-15-65 05:14:000.0[facility] HermannHEMATOLOGY 2011-01-27 05:14:000.2[facility] CnpqsnqNXJFIFHEQJ3673-31-64 05:14:000.0[facility] NuouwoqSYBRRVYTCR2924-59-72 05:14:000.0[facility] MraedgiWGGHDLSJW8385-38-62 20:09:36498.0[facility] MvxkqfoZGIAQSOEFI3327-04-72 20:09:000.0[facility] GXAIAFJFZO1019-79-20 20:09:000.0[facility] McecfncDSKEEUMIFC7080-90-10 20:09:000.0 [facility] MjgkaxkWJRUJYLGAM6379-61-01 20:09:000.1[facility]annHEMATOLOGY 2011-01-26 20:09:00 Test Item Value Reference Range Interpretation Comments PTT (test code = PTT) 29.8 s 22.9-35.8 N [facility] WzbuoxqMOIUGZPCHW2180-31-02 20:09:00 Test Item Value Reference Range Interpretation Comments PT (test code = PT) 15.4 s 12.0-14.7 H [facility] UmaxkxyOZOBEVUGRC5370-38-00 20:09:00 Test Item Value Reference Range Interpretation Comments INR (test code = INR) 1.22 1 0.85-1.17 H [facility] HpajsolARUFPELOB5511-50-27 18:43:26740.0[facility] HermannCHEMISTRY 2011-01-26 18:43:000.8[facility] VkokdeoZKXJXPAGR9729-84-34 18:43:001.17[facility] WfyghlyMQLYNTGTW6925-89-19 18:43:003.6[facility] JpzsdxfHWCNNKGWM8954-35-73 18:43:82470.0[facility] PptagkdNQOMKGFCE6181-38-77 18:43:0080.0[facility] PAVITGPRN5880-07-04 18:43:0040.0[facility] CvjdxujHGCMOVJGV5590-98-39 18:43:0037.0 [facility] OhsqpuhVSVMVDGUT3129-11-08 18:43:00 Test Item Value Reference Range Interpretation Comments POC A pH (test code = POC A pH) 7.4 1 7.35-7.45 N [facility] YxmusaeJGWVCTHIV7796-82-81 18:43:0034.0[facility] HermannCHEMISTRY 2011-01-26 18:43:000.0[facility] PtfomcxTZNXYMKTN9895-76-84 18:43:0096.0[facility] HcptvqnXXZDTZAXK0465-80-64 18:43:0025.0[facility] TtgdhmxYDNCEMQSW4499-14-10 17:57:0096.0[facility] QvafcbqLZCZFVBMO8832-12-84 17:57:003.6[facility] ZSFSIVJNM8498-07-66 17:57:000.8[facility] UqvhfjcZSPRRSKAF8418-85-89 17:57:49595.0 [facility] QqavksaDZMZTZNXB8161-14-92 17:57:0037.0[facility] HermannCHEMISTRY 2011-01-26 17:57:0025.0[facility] UnenhmkJJYKGDNUX3192-56-85 17:57:0079.0[facility] PlwofvsIYNQHZHXK8996-84-26 17:57:0038.0[facility] XjpugnbYUZKKXFAZ4942-35-10 17:57:00 Test Item Value Reference Range Interpretation Comments POC A pH (test code = POC A pH) 7.42 1 7.35-7.45 N [facility] ZkpvideJGSBSIATZ4943-48-06 17:57:000.0[facility] HermannCHEMISTRY 2011-01-26 17:57:001.22[facility] AiecmazIIZYPBXTQ0555-07-06 17:57:13888.0[facility] GspthuyBSBCBFHKF4887-70-98 17:57:0036.0[facility] OwhjyucZVYJLDIII8391-89-83 17:01:0041.0[facility] FnuaqwjAEPGBRQFC6826-10-85 17:01:97494.0[facility] QCTZCBWGN1452-43-88 17:01:001.05[facility] OenkwpaLHEPCPSZH9113-18-85 17:01:003.6 [facility] UntppwhLJWIFYNUE0768-39-62 17:01:000.8[facility] HermannCHEMISTRY 2011-01-26 17:01:00264.0[facility]BL[facility] CXURHFK2856-88-84 14:00:00 Negative (01/26/2011 09:00:00) ??[facility] SffeileCHKOCJRRGX8632-74-19 05:15:00 Test Item Value Reference Range Interpretation Comments PTT (test code = PTT) 28.2 s 22.9-35.8 N [facility] IyteputEYKBSYZUON9564-18-01 05:15:00 Test Item Value Reference Range Interpretation Comments INR (test code = INR) 1.24 1 0.85-1.17 H [facility] TjlcvouIGAWBUFMBL9439-03-81 05:15:00 Test Item Value Reference Range Interpretation Comments PT (test code = PT) 15.6 s 12.0-14.7 H [facility] MokexnxCYZTYTCCZ1860-99-28 12:56:00 Test Item Value Reference Range Interpretation Comments CK MB Index (test code = CK MB Index) 0.4 1 <=2.5 N [facility] JqbzlnaFXVYVNLDA2500-10-65 12:56:001.1[facility] 2011-01-25 12:56:28419.0[facility] YgmsnefCITWHEBGJ5485-16-41 12:56:00<0.01 [facility] SijourjHYYCPSKQK9259-12-41 12:56:04441.0[facility]annCHEMISTRY 2011-01-25 05:15:84735.0[facility] LquviidBKMOBGMPO2299-86-32 05:15:00<0.01 [facility] YtfpvuaRLDUWOJIV5090-45-18 05:15:00 Test Item Value Reference Range Interpretation Comments CK MB Index (test code = CK MB Index) 0.7 1 <=2.5 N [facility] JjcjhsdKOHFBLBWW4582-55-55 05:15:001.5[facility]annCHEMISTRY 2011-01-25 00:16:002.4[facility] MievgibVDWGJQVEUE7849-72-84 00:16:00Slight *ABN*(01/24/2011 19:16:00) ??[facility] VvblposQEIOXPZJQT1226-15-36 00:16:002.0 [facility] FycetxgYPHEFTIFAW3032-36-89 00:16:00Normal (01/24/2011 19:16:00) ?? [facility] CadkdqcZVFYPUWKW1954-61-64 20:01:00<0.01[facility]annCHEMISTRY 2011-01-24 20:01:0060.0[facility] JoapovwVUMQQCDRF4989-15-22 20:01:0034.0[facility] LABOMARannBLOOD BANK CYXNGCF6305-61-03 08:15:00Negative (01/24/2011 03:15:00) ?? [facility] iValidate[employer]me ROXSALB9020-32-81 08:15:00Product available (01/24/2011 03:15:00) ??[facility] [employer] FTGMDLF0313-36-68 08:15:00 Product available (01/24/2011 03:15:00) ??[facility] HitdenlWZTUKEKSZ7103-56-08 16:30:00 Test Item Value Reference Range Interpretation Comments CK MB Index (test code = CK MB Index) 1.2 1 <=2.5 N [facility] RcfbczkQLBYRQRXN4937-37-59 16:30:001.2[facility]annCHEMISTRY 2011-01-23 16:30:008.7[facility] ChotcetEPKLHISFD6034-02-93 16:30:00<0.02 [facility] ZgqslapSAXTQOPIEG2133-26-80 10:29:00??[facility] HermannURINALYSIS 2011-01-23 10:29:00Occasional /LPF *NA*(01/23/2011 05:29:00) ??[facility] [place] IBATJPVAQY7648-04-15 10:29:00<1.0[facility] EyzacmuGKMLLYCLKS8664-30-45 10:29:00Few /LPF *NA*(01/23/2011 05:29:00) ??[facility]annURINALYSIS 2011-01-23 10:29:00<1.0[facility] TqtfymoSUDFHGSFSG9098-32-36 10:29:00Negative mg/dL (01/23/2011 05:29:00) [facility]lcryjjYAQEVZZIPM9164-44-76 10:29:00 Negative (01/23/2011 05:29:00) [facility] CenterLuazcngVDYHDPPYYU6071-66-13 10:29:00 Negative (01/23/2011 05:29:00) [facility] CenterYtihutnIQRYQTKHEZ7968-78-40 10:29:00 Negative *NA*(01/23/2011 05:29:00) [facility] CenterOweipkzBFKNEWWQWM5935-99-30 10:29:35629 mg/dL *ABN*(01/23/2011 05:29:00) [facility] CenterannURINALYSIS 2011-01-23 10:29:00Negative (01/23/2011 05:29:00) [facility] 2011-01-23 10:29:00 Test Item Value Reference Range Interpretation Comments UA pH (test code = UA pH) 5.0 1 5.0-8.[address] [facility] CenterLkjuiixNIHTYPJYRG7335-93-82 10:29:00 Test Item Value Reference Range Interpretation Comments UA Spec Grav (test code = UA Spec 1.01 [address] [facility] CenterKyzmkcjKQBHEEBJZE7959-02-27 10:29:00Clear (01/23/2011 05:29:00) ?? [facility] CenterUzzqbdnSQICFYUUNC5209-59-19 10:29:00Yellow *NA*(01/23/2011 05:29:00) ?? [facility]BA[facility] - EFFERTJO8235-91-43 10:00:00Negative 1(01/23/2011 05:00:00) ??[facility]
[2019-11-22 00:20] LABS: Absolute Lymphocytes (CBC) 3.5 K/uL (0.7-4.9); Basophils % 0.7 % (0-1.3); Hematocrit 47.1 % (36.0-45.0); Lymphocytes % 14.7 % (15.3-44.8); MPV 9.3 fL (7.6-11.3); RBC Red Blood Cell Count 5.22 M/uL (3.86-4.86)
[2019-11-22 00:45] LABS: Protime INR 0.92
[2019-11-22 00:55] LABS: Albumin 2.8 g/dL (3.4-5.0); Bilirubin Direct 0.1 mg/dL (0-0.2); Bilirubin Total 0.4 mg/dL (0.2-1.0); Potassium 3.5 mmol/L (3.5-5.1); Protein, Total 6.4 g/dL (6.4-8.2)
[2019-11-22 01:11] LABS: Blood Morphology Comment NOT SEEN (NOT SEEN); Platelet Estimate ADEQ
[2019-11-22] MEDS ORDERED: MORPHINE 2 MG/ML SYR ONE (02:02)
[2019-11-22] MEDS ORDERED: GENTAMICIN SULF 80 MG/2ML INJ ONE (02:58)
[2019-11-22] MEDS ORDERED: NA CHLORIDE 0.9% 100 ML IV ONE (02:58)
[2019-11-22] MEDS ORDERED: METRONIDAZOLE 500mg IVPB 500 MG/100 ML BAG IV ONE (02:58)
--- NOTE | 2019-11-22 03:04 | ER ---
Nurse's Notes [facility] Name: Franci Lange Age: 74 yrs Sex: Female : 1945 Arrival Date: 11/21/2019 Time: 22:05 Bed 4 Private MD: Diagnosis: Cervical Spine Fracture;Thoracic Spine Fracture;Esophageal Tear Presentation: 11/20 22:09 Note a trauma alert has been activated. 22:17 Chief complaint: EMS states: "The pt was walking to adjust the temperature when she jd3 tripped over a fall mat. she has some bruising to the right side of her face, a laceration tot her right ear, and a pretty good skin tear to the right elbow. she is also reporting back pain. no LOC or blood thinners.". Care prior to arrival: Glucose check: 159. Mechanism of Injury: Fall from standing position. Trauma event details: Injury occurred in the [facility], Injury occurred: in an institution. Injury occurred: November 21, 2019. 22:17 Acuity: JAY 3 j 22:17 Method Of Arrival: EMS: [facility] j 22:38 Coronavirus screen: Proceed with normal triage. Ebola Screen: Patient negative for jd3 fever greater than or equal to 101.5 degrees Fahrenheit, and additional compatible Ebola Virus Disease symptoms. Initial Sepsis Screen: Does the patient meet any 2 criteria? No. Patient's initial sepsis screen is negative. Does the patient have a suspected source of infection? No. Patient's initial sepsis screen is negative. Risk Assessment: Do you want to hurt yourself or someone else? Patient reports no desire to harm self or others. Onset of symptoms was November 21, 2019. Transition of care: patient was received from another setting of care ([facility]), [facility]. Trauma Activation: Alert Physician: ED Physician; Name: Dr. Chisholm; Notified At: 22:09; Arrived At: 22:09 Physician: General Surgeon; Name: ; Notified At: ; Arrived At: Physician: Radiology; Name: Justine Arevalo; Notified At: 22:09; Arrived At: 22:09 Physician: Respiratory; Name: ; Notified At: ; Arrived At: Physician: Lab; Name: ; Notified At: ; Arrived At: Historical: - Allergies: 22:41 Aspirin; jd3 22:41 cefepime; jd3 22:41 CEPHALOSPORINS; jd3 22:41 Ciprofloxacin; jd3 22:41 Cortisone; jd3 22:41 Cortizone-10; jd3 22:41 PENICILLINS; jd3 22:41 Phenobarbital; jd3 - Home Meds: 22:41 amlodipine 10 mg tab 1 tab once daily [Active]; clonazepam 0.5 mg Oral tab 1 tab daily jd3 [Active]; furosemide 40 mg Oral tab 1 tab once daily [Active]; furosemide 20 mg Oral tab 1 tab nightly [Active]; famotidine 20 mg Oral tab 1 tab once daily [Active]; Levemir 100 unit/mL subcutaneous soln 25 unit nightly [Active]; levothyroxine 88 mcg tab 1 tab once daily [Active]; melatonin 3 mg Oral tab 2 cap nightly [Active]; Novolog 10 units Sub-Q soln before meals [Active]; potassium chloride 10 mEq Oral cpER 1 cap 3 times per day [Active]; prednisone 20 mg Oral tab 1 tab once daily [Active]; rosuvastatin 20 mg Oral tab 1 tab nightly [Active]; sertraline 25 mg Oral tab 1 tab once daily [Active]; pyridostigmine bromide 60 mg Oral tab 1 tab 3 times per day [Active]; - PMHx: 22:41 Myocardial infarction; Myasthenia Gravis; Depression; Hypothyroidism; Diabetes - IDDM; jd3 High Cholesterol; Osteoporosis; Hypertension; CHF; - PSHx: 22:41 brain shunt; menigioma; brain surgery; neck surgery; jd3 - Immunization history:: Adult Immunizations up to date. - Immunization history: Last tetanus immunization: unknown. - Social history:: Smoking status: Patient denies any tobacco usage or history of. Screenin:37 Abuse screen: Denies threats or abuse. Tuberculosis screening: No symptoms or risk jd3 factors identified. 22:42 Nutritional screening: No deficits noted. Fall Risk Fall in past 12 months (25 points). jd3 Ambulatory Aid- Crutches/Cane/Walker (15 pts). Gait- Weak (10 pts.). Mental Status- Oriented to own ability (0 pts). Total [place] Fall Scale indicates High Risk Score (45 or more points). Fall prevention measures have been instituted. Side Rails Up X 2 Placed Close to Nursing Station Frequent Obs/Assessments Occuring. Primary Survey: 22:34 NO uncontrolled hemorrhage observed. A: The patient is alert. Airway: patent, No jd3 supplemental oxygen in use on arrival. Oral cavity: clear, Trachea midline. Breathing/Chest: Respiratory pattern: regular, Respiratory effort: spontaneous, unlabored, Breath sounds: clear, Chest inspection: symmetrical rise and fall of the chest. Circulation: Heart tones present. Skin color: pink, Skin temperature: warm. Disability Alert. Exposure/Environment: All clothing and personal items were removed. Forensic evidence collection is not deemed to be indicated at this time. Items placed in patient belonging bag. There is no evidence of uncontrolled external bleeding. Obvious injury(ies) are noted at this time: bruising noted to right side of face, small laceration to under side of right ear, abrasion noted to right elbow. A warming method has been applied: A warm blanket has been provided to the patient. 23:21 Reassessment Airway Airway Patent Oxygen No O2 Oral cavity Clear Trachea Midline jd3 Breathing/Chest Respiratory pattern Regular Respiratory effort Spontaneous Unlabored Breath sounds Clear Chest inspection Symmetrical Circulation Heart rhythm Sinus rhythm Heart tones Present Pulses Palpable Color [place] Temperature Warm Disability Alert. Secondary Survey: 22:34 HEENT: Nose: clear to bilateral nares. Throat: No injury or deformity noted. jd3 Gastrointestinal: Abdomen is soft, Palpation No deficit noted. : No signs and/or symptoms were reported regarding the genitourinary system. Musculoskeletal: Circulation, motion, and sensation intact. Range of motion: intact in all extremities. Assessment: 22:17 General: Appears in no apparent distress. uncomfortable, Behavior is calm, cooperative, jd3 appropriate for age. Pain: Complains of pain in right side of head, back and right arm Quality of pain is described as aching, tender. Neuro: Level of Consciousness is awake, alert, obeys commands, Oriented to person, place, situation, Moves all extremities. Full function Speech is normal, Facial symmetry appears normal, Pupils are PERRLA. EENT: small laceration noted to the under side of the right ear.. Cardiovascular: Denies chest pain, Capillary refill < 3 seconds Patient's skin is warm and dry. Respiratory: Airway is patent Respiratory effort is even, unlabored, Respiratory pattern is regular, symmetrical, Breath sounds are clear bilaterally. Denies cough, shortness of breath. GI: No signs and/or symptoms were reported involving the gastrointestinal system. Abdomen is round non-distended, Abd is soft and non tender X 4 quads. Patient currently denies abdominal pain, diarrhea, nausea, vomiting. : No signs and/or symptoms were reported regarding the genitourinary system. Derm: Skin is intact, Skin is dry, Skin is normal, Skin temperature is warm Bruising that is dark purple, on right side of head. Musculoskeletal: Circulation, motion, and sensation intact. Range of motion: intact in all extremities. Injury Description: Abrasion sustained to right elbow Laceration sustained to right ear lobe is clean, superficial, 0.5 to 2.5 cm long, not bleeding. 23:21 Reassessment: Patient appears in no apparent distress at this time. Patient and/or jd3 family updated on plan of care and expected duration. Pain level reassessed. Patient is alert, oriented x 3, equal unlabored respirations, skin warm/dry/pink. 11/21 00:55 Reassessment: Patient appears in no apparent distress at this time. Patient and/or jd3 family updated on plan of care and expected duration. Pain level reassessed. Patient is alert, oriented x 3, equal unlabored respirations, skin warm/dry/pink. awaiting disposition. 02:00 Reassessment: Patient and/or family updated on plan of care and expected duration. Pain jd3 level reassessed. Patient is alert, oriented x 3, equal unlabored respirations, skin warm/dry/pink. reporting continued pain. 03:09 Reassessment: Patient and/or family updated on plan of care and expected duration. Pain jd3 level reassessed. Patient is alert, oriented x 3, equal unlabored respirations, skin warm/dry/pink. report given to Brigida NIÑO form [facility]. 03:55 Reassessment: Patient appears in no apparent distress at this time. Patient and/or jd3 family updated on plan of care and expected duration. Pain level reassessed. Patient is alert, oriented x 3, equal unlabored respirations, skin warm/dry/pink. report given to ems. Vital Signs: 11/20 22:36 BP 136 / 58; Pulse 70; Resp 15 S; Temp 97.5(O); Pulse Ox 97% on R/A; Weight 111.13 kg jd3 (R); Height 4 ft. 11 in. (149.86 cm) (R); Pain 10/10; 23:14 BP 132 / 62; Pulse 65; Resp 16 S; Pulse Ox 97% on R/A; jd3 11/21 00:55 BP 104 / 51; Pulse 64; Resp 17 S; Pulse Ox 97% on R/A; jd3 01:59 BP 120 / 46; Pulse 80; Resp 18 S; Pulse Ox 96% on R/A; Pain 10/10; jd3 02:18 BP 134 / 61; Pulse 63; Resp 18; Pulse Ox 95% on R/A; mg2 03:10 BP 126 / 55; Pulse 63; Resp 16 S; Pulse Ox 95% on R/A; jd3 11/20 22:36 Body Mass Index 49.48 (111.13 kg, 149.86 cm) jd3 [place] Coma Score: 11/20 22:36 Eye Response: spontaneous(4). Verbal Response: oriented(5). Motor Response: obeys jd3 commands(6). Total: 15. 23:21 Eye Response: spontaneous(4). Verbal Response: oriented(5). Motor Response: obeys jd3 commands(6). Total: 15. Trauma Score (Adult): 22:36 Eye Response: spontaneous(1); Verbal Response: oriented(1); Motor Response: obeys jd3 commands(2); Systolic BP: > 89 mm Hg(4); Respiratory Rate: 10 to 29 per min(4); [place] Score: 15; Trauma Score: 12 23:21 Eye Response: spontaneous(1); Verbal Response: oriented(1); Motor Response: obeys jd3 commands(2); Systolic BP: > 89 mm Hg(4); Respiratory Rate: 10 to 29 per min(4); [place] Score: 15; Trauma Score: 12 ED Course: 22:05 Patient arrived in ED. sg 22:05 Gustavo Chisholm MD is Attending Physician. 7 22:16 Alexandr De RN is Primary Nurse. jd3 22:20 Triage completed. jd3 22:37 Patient has correct armband on for positive identification. Placed in gown. Bed in low jd3 position. Call light in reach. Side rails up X 1. Adult w/ patient. spark tester on. Pulse ox on. NIBP on. 22:40 Forearm Right XRAY In Process Unspecified. EDMS 22:42 Arm band placed on. jd3 22:42 Patient maintains SpO2 saturation greater than 95% on room air. Thermoregulation: warm jd3 blanket given to patient. 23:14 Wound care: to abrasion, located on right elbow was cleaned with soap and water, jd3 dressed with 4X4s, Patient tolerated well. 23:19 CT Head C Spine In Process Unspecified. EDMS 23:19 CT Facial Bones W/O Con In Process Unspecified. EDMS 23:19 CT Thoracic Spine Wo Cont In Process Unspecified. EDMS 23:23 CT Lumbar Spine Wo Con In Process Unspecified. EDMS 23:39 Rigid cervical collar applied and checked by physician. mg2 11/21 00:05 Inserted saline lock: 22 gauge in left antecubital area, using aseptic technique. Blood mg2 collected. 00:23 Notified ED physician of a critical lab result(s). WBC 23.9. sg 01:29 Thorax Wo Con In Process Unspecified. EDMS 04:06 No provider procedures requiring assistance completed. Patient transferred, IV remains jd3 in place. Administered Medications: 11/20 22:30 Drug: Tylenol 1000 mg Route: PO; mg2 11/21 02:18 Follow up: Response: No adverse reaction mg2 01:59 Drug: morphine 2 mg Route: IVP; Site: left antecubital; jd3 02:59 Follow up: Response: No adverse reaction; RASS: Alert and Calm (0) jd3 03:07 Drug: Flagyl 500 mg Volume: 100 ml; Route: IVPB; Rate: 200 ml/hr; Infused Over: 30 mg2 mins; Site: left upper arm; 03:55 Follow up: Response: No adverse reaction; IV Status: Infusion continued upon transfer jd3 03:35 Drug: Gentamicin 1 mg/kg Route: IVPB; Infused Over: 30 mins; Site: left antecubital; jd3 03:55 Follow up: Response: No adverse reaction; IV Status: Infusion continued upon transfer jd3 Intake: 04:07 PO: 0ml; Total: 0ml. jd3 Output: 04:07 Urine: 0ml; Total: 0ml. jd3 Outcome: 03:03 ER care complete, transfer ordered by MD. estevez 04:06 Transferred by ground EMS to [facility], Transfer form completed. X-rays sent jd3 w/ patient. 04:06 Condition: stable 04:06 Instructed on the need for transfer, Demonstrated understanding of instructions. 04:07 Patient's length of stay in the Emergency Department was greater than 2 hours. waiting jd3 for results, and pt placement for transferPatient's length of stay extended due to 04:07 Patient left the ED. jd3 Signatures: Dispatcher [employer] EDMS Dutch Medley RN RN sg Davies, Jonathon, RN RN jd3 Gardose, Michele, RN RN [facility] Gustavo Chisholm MD MD mh7 Corrections: (The following items were deleted from the chart) 11/20 22:38 22:36 BP 136 / 48; Pulse 70bpm; Resp 15bpm; Spontaneous; Pulse Ox 97% RA; Temp 97.5F jd3 Oral; 111.13 kg Reported; Height 4 ft. 11 in. Reported; BMI: 49.4; Pain 10/10; jd3
--- NOTE | 2019-11-22 03:04 | EDPHYS ---
Physician Documentation [facility] Name: Franci Lange Age: 74 yrs Sex: Female : 1945 Arrival Date: 11/21/2019 Time: 22:05 Bed 4 Private MD: ED Physician Gustavo Chisholm HPI: 11/20 22:37 This 74 yrs old Female presents to ER via EMS with complaints of Fall. mh7 22:37 Details of fall: The patient fell from an upright position, while walking, and struck. mh7 Onset: The symptoms/episode began/occurred today. Associated injuries: The patient sustained injury to the head, contusion, injury to the low back, pain, right elbow, abrasion, right ear and face, abrasion, contusion. Severity of symptoms: At their worst the symptoms were moderate, earlier today, in the emergency department the symptoms are unchanged. Historical: - Allergies: 22:41 Aspirin; jd3 22:41 cefepime; jd3 22:41 CEPHALOSPORINS; jd3 22:41 Ciprofloxacin; jd3 22:41 Cortisone; jd3 22:41 Cortizone-10; jd3 22:41 PENICILLINS; jd3 22:41 Phenobarbital; jd3 - Home Meds: 22:41 amlodipine 10 mg tab 1 tab once daily [Active]; clonazepam 0.5 mg Oral tab 1 tab daily jd3 [Active]; furosemide 40 mg Oral tab 1 tab once daily [Active]; furosemide 20 mg Oral tab 1 tab nightly [Active]; famotidine 20 mg Oral tab 1 tab once daily [Active]; Levemir 100 unit/mL subcutaneous soln 25 unit nightly [Active]; levothyroxine 88 mcg tab 1 tab once daily [Active]; melatonin 3 mg Oral tab 2 cap nightly [Active]; Novolog 10 units Sub-Q soln before meals [Active]; potassium chloride 10 mEq Oral cpER 1 cap 3 times per day [Active]; prednisone 20 mg Oral tab 1 tab once daily [Active]; rosuvastatin 20 mg Oral tab 1 tab nightly [Active]; sertraline 25 mg Oral tab 1 tab once daily [Active]; pyridostigmine bromide 60 mg Oral tab 1 tab 3 times per day [Active]; - PMHx: 22:41 Myocardial infarction; Myasthenia Gravis; Depression; Hypothyroidism; Diabetes - IDDM; jd3 High Cholesterol; Osteoporosis; Hypertension; CHF; - PSHx: 22:41 brain shunt; menigioma; brain surgery; neck surgery; jd3 - Immunization history:: Adult Immunizations up to date. - Immunization history: Last tetanus immunization: unknown. - Social history:: Smoking status: Patient denies any tobacco usage or history of. ROS: 22:37 Constitutional: Negative for fever, chills, and weight loss, Neck: Negative for injury, mh7 pain, and swelling, Cardiovascular: Negative for chest pain, palpitations, and edema, Respiratory: Negative for shortness of breath, cough, wheezing, and pleuritic chest pain, Abdomen/GI: Negative for abdominal pain, nausea, vomiting, diarrhea, and constipation, : Negative for injury, bleeding, discharge, and swelling, Neuro: Negative for headache, weakness, numbness, tingling, and seizure, Psych: Negative for depression, anxiety, suicide ideation, homicidal ideation, and hallucinations, Allergy/Immunology: Negative for hives, rash, and allergies, Endocrine: Negative for neck swelling, polydipsia, polyuria, polyphagia, and marked weight changes, Hematologic/Lymphatic: Negative for swollen nodes, abnormal bleeding, and unusual bruising. Exam: 22:37 Constitutional: This is a well developed, well nourished patient who is awake, alert, mh7 and in no acute distress. 22:37 Eyes: Pupils equal round and reactive to light, extra-ocular motions intact. Lids and lashes normal. Conjunctiva and sclera are non-icteric and not injected. Cornea within normal limits. Periorbital areas with no swelling, redness, or edema. Neck: Trachea midline, no thyromegaly or masses palpated, and no cervical lymphadenopathy. Supple, full range of motion without nuchal rigidity, or vertebral point tenderness. No Meningismus. Chest/axilla: Normal chest wall appearance and motion. Nontender with no deformity. No lesions are appreciated. Cardiovascular: Regular rate and rhythm with a normal S1 and S2. No gallops, murmurs, or rubs. Normal PMI, no JVD. No pulse deficits. Respiratory: Lungs have equal breath sounds bilaterally, clear to auscultation and percussion. No rales, rhonchi or wheezes noted. No increased work of breathing, no retractions or nasal flaring. Abdomen/GI: Soft, non-tender, with normal bowel sounds. No distension or tympany. No guarding or rebound. No evidence of tenderness throughout. Back: No spinal tenderness. No costovertebral tenderness. Full range of motion. 22:37 Neuro: Awake and alert, GCS 15, oriented to person, place, time, and situation. Cranial nerves II-XII grossly intact. Motor strength 5/5 in all extremities. Sensory grossly intact. Cerebellar exam normal. Normal gait. Psych: Awake, alert, with orientation to person, place and time. Behavior, mood, and affect are within normal limits. 22:37 Head/face: Noted is abrasion(s), of the face and right side of head, contusion, that is superficial, of the face and right side of head. 22:37 Musculoskeletal/extremity: Extremities: noted in the right elbow, upper forearm: abrasion, contusion, skin tear, ROM: intact in all extremities, Circulation is intact in all extremities. Pulses: are normal with no appreciated deficits, Perfusion: the patient is normally perfused throughout, Perfusion: the extremity is normally perfused throughout, Calf tenderness, is absent, Edema, is not appreciated, Sensation intact. Compartment Syndrome exam of affected extremity: is normal. no numbness, no tingling, no sensation deficit, no palor, no weak pulses, Joints: All joints appear normal with full range of motion. Tendon exam: specific tendon testing normal through active and passive range of motion 22:37 Skin: skin tear right upper forearm, elbow area. Vital Signs: 22:36 BP 136 / 58; Pulse 70; Resp 15 S; Temp 97.5(O); Pulse Ox 97% on R/A; Weight 111.13 kg jd3 (R); Height 4 ft. 11 in. (149.86 cm) (R); Pain 10/10; 23:14 BP 132 / 62; Pulse 65; Resp 16 S; Pulse Ox 97% on R/A; jd3 06 00:55 BP 104 / 51; Pulse 64; Resp 17 S; Pulse Ox 97% on R/A; jd3 01:59 BP 120 / 46; Pulse 80; Resp 18 S; Pulse Ox 96% on R/A; Pain 10/10; jd3 02:18 BP 134 / 61; Pulse 63; Resp 18; Pulse Ox 95% on R/A; mg2 03:10 BP 126 / 55; Pulse 63; Resp 16 S; Pulse Ox 95% on R/A; jd3 11/20 22:36 Body Mass Index 49.48 (111.13 kg, 149.86 cm) d3 [place] Coma Score: 11/20 22:36 Eye Response: spontaneous(4). Verbal Response: oriented(5). Motor Response: obeys jd3 commands(6). Total: 15. 23:21 Eye Response: spontaneous(4). Verbal Response: oriented(5). Motor Response: obeys jd3 commands(6). Total: 15. Trauma Score (Adult): 22:36 Eye Response: spontaneous(1); Verbal Response: oriented(1); Motor Response: obeys jd3 commands(2); Systolic BP: > 89 mm Hg(4); Respiratory Rate: 10 to 29 per min(4); [place] Score: 15; Trauma Score: 12 23:21 Eye Response: spontaneous(1); Verbal Response: oriented(1); Motor Response: obeys jd3 commands(2); Systolic BP: > 89 mm Hg(4); Respiratory Rate: 10 to 29 per min(4); [place] Score: 15; Trauma Score: 12 MDM: 22:16 Patient medically screened. [facility] 11/21 02:58 Differential diagnosis: abrasion, closed head injury, contusion, fracture, laceration, mh7 multiple trauma. Data reviewed: vital signs, nurses notes, EMS record, lab test result(s), CBC, electrolytes, radiologic studies, CT scan, plain films. Counseling: I had a detailed discussion with the patient and/or guardian regarding: the historical points, exam findings, and any diagnostic results supporting the discharge/admit diagnosis, lab results, radiology results, the need to transfer to another facility, for higher level of care, [facility] does not immediately have the required specialist. 11/20 23:50 Order name: CBC with Diff; Complete Time: 02:33 [facility] 11/20 23:50 Order name: Basic Metabolic Panel; Complete Time: 02:33 [facility] 11/20 23:50 Order name: Protime (+inr); Complete Time: 00:55 [facility] 11/20 23:50 Order name: Ptt, Activated; Complete Time: 00:55 [facility] 11/20 23:50 Order name: LFT's; Complete Time: 02:33 [facility] 11/21 00:24 Order name: Manual Differential; Complete Time: 02:33 [facility] 11/20 22:19 Order name: CT Head C Spine [facility] 11/20 22:19 Order name: CT Facial Bones W/O Con [facility] 11/20 22:19 Order name: CT Thoracic Spine Wo Cont [facility] 11/20 22:19 Order name: CT Lumbar Spine Wo Con [facility] 11/20 22:19 Order name: Forearm Right XRAY [facility] 11/21 00:51 Order name: Thorax Wo Con EDMS Administered Medications: 11/20 22:30 Drug: Tylenol 1000 mg Route: PO; mg2 11/21 02:18 Follow up: Response: No adverse reaction mg2 01:59 Drug: morphine 2 mg Route: IVP; Site: left antecubital; jd3 02:59 Follow up: Response: No adverse reaction; RASS: Alert and Calm (0) jd3 03:07 Drug: Flagyl 500 mg Volume: 100 ml; Route: IVPB; Rate: 200 ml/hr; Infused Over: 30 mg2 mins; Site: left upper arm; 03:55 Follow up: Response: No adverse reaction; IV Status: Infusion continued upon transfer jd3 03:35 Drug: Gentamicin 1 mg/kg Route: IVPB; Infused Over: 30 mins; Site: left antecubital; jd3 03:55 Follow up: Response: No adverse reaction; IV Status: Infusion continued upon transfer jd3 Disposition: 11/22/19 03:03 Transfer ordered to [facility]. Diagnosis are Cervical Spine Fracture, Thoracic Spine Fracture, Esophageal Tear. - Reason for transfer: Higher level of care. - Accepting physician is Dr. Martin- [facility] Trauma. - Condition is Stable. - Problem is new. - Symptoms are unchanged. Signatures: Dispatcher [employer] Alexandr Gutiérrez RN RN jd3 Skip Padgett RN RN mg2 Gustavo Chisholm MD MD mh7 Corrections: (The following items were deleted from the chart) 11/20 22:39 22:20 Elbow Right 3 View+[email or web address].[email or web address] ordered. [facility] 11/21 04:07 03:03 11/22/2019 03:03 Transfer ordered to [facility]. Diagnosis is jd3 Cervical Spine Fracture; Thoracic Spine Fracture; Esophageal Tear. Reason for transfer: Higher level of care. Accepting physician is Dr. Martin- [facility] Trauma. Condition is Stable. Problem is new. Symptoms are unchanged. mh7
[2019-11-22 04:15] VITALS: TEMP 97.5
[2019-11-22 04:20] VITALS: O2SAT 95
[2019-11-22 04:21] VITALS: BP 126/55
--- NOTE | 2019-11-22 08:23 | RAD REPORT ---
EXAM DESCRIPTION: RAD - Forearm Right - 11/21/2019 10:40 pm CLINICAL HISTORY: trauma, trip and fall, arm pain COMPARISON: Forearm Right dated 02/02/2019 FINDINGS: Degenerative changes are present at the elbow joint and wrist joint similar to comparison. No fracture or dislocation identifiable. Posterior skin wound is seen. There is no dislocation or pe riosteal reaction noted. No foreign body or other soft tissue abnormality. IMPRESSION: No fracture or acute bone finding.
--- NOTE | 2019-11-23 11:01 | RAD REPORT ---
EXAM DESCRIPTION: CT - Facial Bones W/ Mpr - 11/22/2019 1:47 am CLINICAL HISTORY: 74 years Female TRAUMA TECHNIQUE: Contiguous axial images obtained through the face and paranasal sinuses without IV contra st. Coronal and sagittal reformatted images provided. This CT exam was performed according to our departmental dose-optimization program, which includes on e or more of the following dose reduction techniques: automated exposure control, adjustment of the m A and/or kV according to patient size, and/or use of iterative reconstruction technique. COMPARISON: No prior exams provided for comparison. FINDINGS: There is mild right frontal and right facial soft tissue swelling. Chronic postsurgical ch anges in the skull. No acute facial or mandibular fracture. No temporomandibular joint dislocation. Minimal mucosal thickening in the right frontal sinus. The remainder of the paranasal sinuses and mas toid air cells are clear. Prior left cataract surgery. No acute intraorbital abnormality on either side. IMPRESSION: Mild right frontal and right facial soft tissue swelling. No acute facial fracture or ac francheska orbital injury Electronically signed by: Carolina Morris MD 11/21/2019 11:38 PM CDT Due to temporary technical issues with the PACS/Fluency reporting system, reports are being signed by the in house radiologist without review as a courtesy to ensure prompt reporting. The interpreting r adiologist is fully responsible for the content of the report.
--- NOTE | 2019-11-23 11:03 | RAD REPORT ---
EXAM DESCRIPTION: CT - Thoracic Spine W/o Cont - 11/22/2019 1:47 am CLINICAL HISTORY: 74 years Female trauma TECHNIQUE: Contiguous axial CT images obtained through the thoracic spine without IV contrast. Cor onal and sagittal reformatted images also provided. This CT exam was performed according to our departmental dose-optimization program, which includes on e or more of the following dose reduction techniques: automated exposure control, adjustment of the m A and/or kV according to patient size, and/or use of iterative reconstruction technique. COMPARISON: No prior exams provided for comparison. Examination is read in conjunction with the conc omitant cervical spine CT. FINDINGS: Again seen is an acute fracture involving the anterior aspect of the C7 vertebral body wit h widening of the C6-C7 disc space anteriorly, consistent with an acute hyperextension injury. There is associated acute prevertebral hemorrhage extending into the posterior aspect of the superior media stinum. A few bubbles of gas within this collection appear to be adjacent to the esophagus. There is also an acute transverse fracture involving the T4 vertebral body anteriorly, nondisplaced. No other acute thoracic spine fracture. No spondylolisthesis. There is smooth ankylosis throughout th e thoracic spine suggestive of underlying ankylosing spondylitis. No aggressive osseous lesion. No central canal or neural foraminal stenosis at any thoracic level. IMPRESSION: Acute hyperextension injury. Acute fracture involving the anterior aspect of the C7 vert ebral body with widening of the C6-C7 disc space anteriorly. Associated prevertebral soft tissue hemo rrhage extending into the superior mediastinum. A few bubbles of gas within this collection raises co ncern for an esophageal injury. Recommend CT scan of the chest immediately after the administration o f oral contrast. Acute, nondisplaced, transverse fracture of the T4 vertebral body. No other thoracic spine fracture. Suspected underlying ankylosing spondylitis. No thoracic spinal candi nosis. THIS REPORT CONTAINS FINDINGS THAT MAY BE CRITICAL TO PATIENT CARE: The findings were verbally discu ssed via telephone conference with ORION Hare by Dr. Carolina Morris on 11/21/2019 11:43 PM CDT . The results were acknowledged and understood. Electronically signed by: Carolina Morris MD 11/21/2019 11:51 PM CDT Due to temporary technical issues with the PACS/Fluency reporting system, reports are being signed by the in house radiologist without review as a courtesy to ensure prompt reporting. The interpreting r adiologist is fully responsible for the content of the report.
--- NOTE | 2019-11-23 11:06 | RAD REPORT ---
EXAM DESCRIPTION: CT - Spine Lumbar Wo Con - 11/22/2019 1:46 am CLINICAL HISTORY: 74 years Female trauma TECHNIQUE: Contiguous axial CT images obtained through the lumbar spine without IV contrast. Coronal and sagittal reformatted images also provided. This CT exam was performed according to our departmental dose-optimization program, which includes on e or more of the following dose reduction techniques: automated exposure control, adjustment of the m A and/or kV according to patient size, and/or use of iterative reconstruction technique. COMPARISON: No prior exams provided for comparison. FINDINGS: There is a subacute-appearing compression fracture involving the superior endplate of L2. There is approximately 40% loss of height centrally with 1.5 mm of retropulsion. There is no other lumbar fracture. No spondylolisthesis. Minimal scattered multilevel degenerative di sc disease with moderate to severe multilevel facet arthrosis. Partial sacralization of L5 on the lef t. No aggressive osseous lesion. Mild degenerative changes at the right sacroiliac joint. No acute paraspinal soft tissue abnormality. Atherosclerosis without visualized aneurysm. At L1-L2, there is mild left neural foraminal stenosis. At L2-L3, there is mild central canal stenosis with slight left neural foraminal stenosis. At L3-L4, there is moderate to severe central canal stenosis with mild bilateral neural foraminal candi nosis. At L4-L5, there is severe central canal stenosis with mild right neural foraminal stenosis. At L5-S1, there is no central canal or neural foraminal stenosis. IMPRESSION: Subacute-appearing compression fracture involving the superior endplate of L2. Chronic multilevel degenerative changes resulting in central canal and neural foraminal stenoses as d escribed, most pronounced at L4-L5. Electronically signed by: Carolina Morris MD 11/22/2019 12:01 AM CDT Due to temporary technical issues with the PACS/Fluency reporting system, reports are being signed by the in house radiologist without review as a courtesy to ensure prompt reporting. The interpreting r adiologist is fully responsible for the content of the report.
--- NOTE | 2019-11-23 11:09 | RAD REPORT ---
EXAM DESCRIPTION: CT - CTHCSPWOC - 11/22/2019 1:47 am ADDENDUM #1 Clinical findings were discussed with and acknowledged by Dr. Gustavo Chisholm on 11/21/2019 11:32 PM CD T. Electronically signed by: Freeman Laureano MD 11/21/2019 11:43 PM CDT End of Addendum CLINICAL HISTORY: Trauma COMPARISON: 08/02/2019. TECHNIQUE: CT Head and Cervical spine WO contrast on 11/21/2019 10:19 PM CDT This exam was performed according to our departmental dose-optimization program, which includes autom ated exposure control, adjustment of the mA and/or kV according to patient size and/or use of iterati ve reconstruction technique. FINDINGS: Brain: There is a partially calcified mass just above the right para midline clivus. This is unchanged. There is extensive right frontal encephalomalacia. There is a left frontal [employer] shunt ter minating in the anterior horn of the right lateral ventricle. There is no significant volume loss for age. Right frontal craniotomy was performed. Orbits and globes are unremarkable. The paranasal sinuses are clear. Mastoid air cells are clear. Cervical Spine: There is a displaced fracture through the anterior body of C7 vertebral body. Alignme nt is anatomic. There are extensive ventral osteophytes throughout the cervical spine. Disc spaces are maintained. Vertebral body heights are preserved. Soft tissues are unremarkable. IMPRESSION: Acute fracture of the anterior aspect of the C7 vertebral body, possibly from extension injury. Chronic intracranial findings with no acute intracranial hemorrhage. Electronically signed by: Freeman Laureano MD 11/21/2019 11:31 PM CDT Due to temporary technical issues with the PACS/Fluency reporting system, reports are being signed by the in house radiologist without review as a courtesy to ensure prompt reporting. The interpreting r adiologist is fully responsible for the content of the report.
--- NOTE | 2019-11-23 11:14 | RAD REPORT ---
EXAM DESCRIPTION: CT - Thorax Wo Con - 11/22/2019 7:08 am CLINICAL HISTORY: Esophageal tear COMPARISON: 11/21/2019 TECHNIQUE: Axial CT images of the chest without IV contrast obtained from the thoracic inlet through the diaphragm. Coronal and sagittal reformatted images available. Oral contrast is administered. FINDINGS: Chest: Thyroid: No abnormalities of the visualized thyroid. Great Vessels: Great vessels have normal anatomic configuration. 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 Pulmonary arteries: The main pulmonary artery is not dilated. Heart: Coronary artery atherosclerosis. Cardiomegaly. No significant pericardial effusion. Lymph Nodes: No enlarged mediastinal lymph nodes identified. Esophagus: Oral contrast is identified in the mid to distal esophagus. No extravasation of orally adm inistered contrast or air in the mediastinum identified however there is persistent fat stranding adj acent to the esophagus. Other: Ventriculoperitoneal shunt tubing identified. Left IJ Mediport. Lungs: Respiratory motion artifact. No confluent airspace consolidation. Minimal bilateral dependent atelectasis. Bullous change in the left lung base. Pleura: No pleural effusion or pneumothorax. Trachea/Airways: No abnormalities of the visualized trachea or airways. Bones: Acute fractures of C6/7 and T4 are again identified. Fat stranding in the paravertebral soft t issues at these levels. Multilevel degenerative change of the thoracic spine with bridging syndesmoph ytes suggesting ankylosing spondylitis. Upper Abdomen: Limited images of the upper abdomen demonstrate no definite abnormalities of visualize d portions of the liver or spleen. IMPRESSION: 1. Persistent mediastinal fat stranding/hematoma adjacent to the proximal esophagus with out contrast extravasation or pneumomediastinum identified to confirm complete esophageal tear. Fluor oscopically guided esophagram could provide additional characterization. 2. The patient has an aberrant right subclavian artery coursing posterior to the esophagus. CTA of th e chest is recommended to exclude arterial vascular injury. 3. Redemonstrated fractures at C6/7 and T4. This exam was performed according to our departmental dose-optimization program, which includes autom ated exposure control, adjustment of the mA and/or kV according to patient size and/or use of iterati ve reconstruction technique. Electronically signed by: Isaiah Tony 11/22/2019 2:04 AM CDT Due to temporary technical issues with the PACS/Fluency reporting system, reports are being signed by the in house radiologist without review as a courtesy to ensure prompt reporting. The interpreting r adiologist is fully responsible for the content of the report.
== END 2019-11-22 04:07 | disposition short-term general hospital (02) ==
LOC: ER 22:02
DX: S12.500A Unspecified displaced fracture of sixth cervical vertebra, initial encounter for closed fracture (principal); S12.600A Unspecified displaced fracture of seventh cervical vertebra, initial encounter for closed fracture; S22.049A Unspecified fracture of fourth thoracic vertebra, initial encounter for closed fracture; S27.813A Laceration of esophagus (thoracic part), initial encounter; W19.XXXA Unspecified fall, initial encounter; Y93.01 Activity, walking, marching and hiking; Y92.9 Unspecified place or not applicable; I10 Essential (primary) hypertension; I50.9 Heart failure, unspecified; E78.00 Pure hypercholesterolemia, unspecified; E11.9 Type 2 diabetes mellitus without complications; Z79.4 Long term (current) use of insulin; I25.2 Old myocardial infarction; Z88.0 Allergy status to penicillin; Z88.1 Allergy status to other antibiotic agents; Z88.5 Allergy status to narcotic agent; Z88.6 Allergy status to analgesic agent; Z88.8 Allergy status to other drugs, medicaments and biological substances
CPT/HCPCS: 96365; 96368; 85025; 80048; 36415; 85610; 80076; 85730; 72131; 70450; 71250; 72125; 72128; 70486; 76377; 73090; 96375; 99285; J1580; J2270

== ENCOUNTER 2020-01-17 15:07 | Emergency (ER) | payer OTHER ==
--- OUTSIDE RECORDS SUMMARY | 2020-01-17 15:19 | XMS REPORT | Clinical Summary ---
:1945 Author Organization [facility] Address [address] [place] [address] Care Team Providers Name Role Phone Ayush [...] Not on file Results Not on fileafter 01/16/2019 Insurance Payer Benefit Plan / Subscriber ID Type Phone Address Group [employer] - MEDICARE [employer] MEDICARE O xxxxxxxx [address] [place] [address] Advance Directives For more information, please contact:[address] [phone] Code Status Date Activated Date Inactivated Comments Full Code 02/13/2014 10:17 AM 02/13/2014 6:26 PM This code status was determined by: Patient
--- OUTSIDE RECORDS SUMMARY | 2020-01-17 15:19 | XMS REPORT | Continuity of Care Document ---
:1945 Author Organization [facility] t Address [address] [place] [address] Care Team Providers Name Role Phone Ayush Scott Primary Care Physician Unavailable NOELLE Attending Clinician Unavailable SOSA SANTANA Attending Clinician Unavailable SOSA SANTANA Admitting Clinician Unavailable Problems Condition Condition Condition Status Onset Resolution Last Treating Co mments Source Name Details Category Date Date Treatment Clinician Date Trigger Trigger Disease Active [facility] Increased Increased Problem Active Uni vers Pressure [...] Univers meningioma meningioma d [facility] [place] [facility] Myasthenia Myasthenia Problem Active U nivers gravis in gravis in ity of crisis crisis [place] [facility] Myasthenia Myasthenia Problem Active U nivers gravis gravis [facility] [place] [facility] Osteoporos Osteoporos Problem Active U [facility]ivers is is [facility] [place] [facility] Osteopenia Osteopenia Problem Active [facility] [place] [facility] Pneumonia Pneumonia Problem Active [facility] [place] [facility] Depression Depression Problem Active [facility] [place] [facility] Arthritis Arthritis Problem Active [facility] [place] [facility] Back pain Back pain Problem Active [facility] [place] [facility] Encounter Encounter Problem Active Uni vers for care for care [place] [facility] y[facility] h ans Allergies, Adverse Reactions, Alerts Allergy Allergy Status Severity Reaction(s) Onset Inactive Treating Comm ents Source Name Type Date Date Clinician Penicill Drug Active Swelling [facility] Allergy 02-13 [facility] - 00:00: Medical 00 [place] Salicyla Drug Active Rash [facility] ramakrishna Allergy 02-10 [facility] - :: Medical [place] Ciproflo Drug Active Anaphylaxis [facility] xacin Allergy 02-10 [facility] - :00: Medical 00 [place] Erythrom Drug Active Other (See Stomach [facility] ycin Intolera Comments) 02-10 cramping Rosio es - nce 00:00: Medical 00 [place] Levoflox Drug Active Anaphylaxis [facility] acin Allergy 02-10 [facility] - :[facility]: Medical 00 [place] Aspirin Allergy Active Univers TABS to drug ity of (finding [place] Physici ans Cefepime Allergy Active Univers HCl SOLN to drug ity of (finding [place] ) Physici ans Erythrom Allergy Active Univers ycin to drug ity of Der[place]ati (finding [place] ves ) Physici ans Penicill Allergy Active Univers ins to drug ity of (finding [place] ) Physici ans PHENobar Allergy Active Univers bital to drug ity of TABS (finding [place] ) Physici ans Cortizon Allergy Active Univers e-10 to drug ity of (finding [place] ) Physici ans Social History Social Habit Start Date Stop Date Quantity Comments Source Sex Assigned At [facility] Smoking Status Start Date Stop Date Source Never smoker [facility] Medications Ordered Filled Start Stop Current Ordering Indication Dosage Frequency Signature Comments Components Source Medication Medication Date Date Medication? Clinician (SIG) Name Name Pyridostigm Pyridostigm Yes SUUR TAKE 1 Univers ine Mccrory ine Mccrory 6-25 BILICILER TABLET BY ity of 60 [...] MOUTH [place] 00 EVERY DAY Physici ans rOPINIRole rOPINIRole Yes MAN 1 TAKE 1 Univers HCl - 2 MG HCl - 2 MG 4-23 KESER M.D. TABLET AT ity of Oral Tablet Oral Tablet 00:00: BEDTIME. [place] 00 Physici ans atorvastati Yes 40mg QD Take [address] [facility] [address] [facility] (LIPITOR) 9-25 by mouth Luke s - 40 MG 11:02: daily. Medical tablet 35 Center insulin Yes 40U Q.5D Inject 40 [facility] t glargine 9-25 Units [facility] - (LANTUS 11:02: subcutaneo Medi roger SOLOSTAR) 34 usly 2 Center 100 unit/mL [...] MG 11:02: mouth Medical capsule 34 daily. Center metoprolol Yes 25mg QD Take [address] (TOPROL-XL) 9-12 by mouth Luke s - 25 MG 24 hr 12:24: daily. Medi roger tablet 52 Center furosemide Yes 40mg QD Take [address] (LASIX) 40 9-12 by mouth [facility] - MG tablet 12:24: daily. Medica l 52 Center ramipril Yes 5mg QD Take [address] [address] (ALTACE) 5 9-12 by mouth [facility] - MG capsule 12:24: daily. Medic al 52 Center rOPINIRole Yes 2mg QD Take [address] (REQUIP) 2 9-12 by mouth [facility] - MG tablet 12:24: nightly. Medi roger 52 Center amLODIPine Yes 5mg QD Take [address] (NORVASC) 5 9-12 by mouth Luke s - MG tablet 12:24: daily. Medica l 52 Center benzonatate Yes 200mg Take [address] (TESSALON) 9-12 mg by [facility] - 200 MG 12:24: mouth 3 Medical capsule 52 (three) Center times daily as needed for Cough. diphenhydrA Yes 25mg Take [address] MINE 9-12 by mouth [facility] - (BENADRYL 12:24: every 6 Medic al ALLERGY) 25 52 (six) Center mg tablet hours as needed. Crestor 20 Crestor 20 2010-06 Yes 1 [...] sici Tablet Tablet n ans Chewable Chewable Mestinon 60 Mestinon 60 Yes U nivers MG Oral MG Oral ity of Tablet Tablet [place] [facility] Trulicity Trulicity Yes Unive rs 0.75 0.75 ity of MG/0.5ML MG/0.5ML [place] Subcutaneou Subcutaneou P hysici s Solution s [...] Oral MG Oral ity of Capsule Capsule [place] [facility] amLODIPine amLODIPine Yes Uni vers Besylate 5 Besylate 5 ity of MG Oral MG Oral [place] Tablet Tablet Physici ans Lantus SOLN Lantus SOLN Yes U nivers ity of [place] [facility] Plavix 75 Plavix 75 Yes Unive rs MG Oral MG Oral ity of Tablet Tablet [place] [facility] Gabapentin Gabapentin Yes Uni vers 100 MG TABS 100 MG TABS i ty of [place] [facility] Vital Signs Vital Name Observation Time Observation Value Comments Source BP Systolic 2019-05-05 148 mm[Hg] [place] of 11:27:00 [place] [facility]ician s BP Diastolic 2019-05-05 62 mm[Hg] [facility] 11:27:00 [place] Physician s Height 2019-05-05 59 [in_us] [facility] 11:27:00 [place] [facility] s Temperature 2019-05-05 98.5 [degF] [facility] 11:27:00 [place] [facility] s Heart Rate 2019-05-05 72 /min [facility] 11:27:00 [place] Phys[facility] s Height 2019-05-05 59 [in_us] [facility] 11:26:00 [place] Phys[facility] s Temperature 2019-05-05 98.5 [degF] [facility] 11:26:00 [place] Phys[facility] s Height 2019-01-25 59 [in_us] [facility] 08:41:00 [place] Phys[facility] s Temperature 2019-01-25 98.3 [degF] [facility] 08:41:00 [place] Physician s BP Systolic 2018-11-11 149 mm[Hg] Location: [facility] 12:31:00 Position: [place] Physician s Sitting BP Diastolic 2018-11-11 65 mm[Hg] Location: [facility] 12:31: Position: [place] [facility] s Sitting Height 2018-11-11 59 [in_us] [facility] 12:31:00 [place] [facility] s Weight 2018-11-11 213 [lb_av] [facility] 12:: [place] [facility] s Body Mass Index 2018-11-11 43.02 kg/m2 University o f Calculated 12:31:00 [place] Phys[facility] s Temperature 2018-11-11 97.6 [degF] Method: Oral [facility] 12:: [place] Phys[facility] s Heart Rate 2018-11-11 74 /min Location: [facility] 12:31:00 Apical; [place] Physician s BP Systolic 2018-10-14 164 mm[Hg] [place] [facility] [place] [facility] 12::00 Position: [place] Physician s Sitting BP Diastolic 2018-10-14 68 mm[Hg] Location: [facility] 12::00 Position: [place] [facility]ician s Sitting Height 2018-10-14 59 [in_us] [facility] 12:27:00 [place] [facility] s Weight 2018-10-14 215 [lb_av] [facility] 12::00 [place] [facility] s Body Mass Index 2018-10-14 43.43 kg/m2 [place] Calculated 12::00 [place] [facility] s Temperature 2018-10-14 98.5 [degF] Method: Oral [facility] 12::00 [place] [facility] s Heart Rate 2018-10-14 84 /min Location: [facility] 12::00 Apical; [place] [facility]ician s BP Systolic 2018-09-21 136 mm[Hg] Location: [facility] 11:: [place] Phys[facility] s BP Diastolic 2018-09-21 88 mm[Hg] Location: [facility] 11:: [place] [facility] s Height 2018-09-21 59 [in_us] University 11:28:00 [place] Physician s Weight 2018-09-21 205 [lb_av] [facility] 11:28: [place] Physician s Body Mass Index 2018-09-21 41.41 kg/m2 [place] Calculated 11:28:00 [place] Phys[facility] s Temperature 2018-09-21 96.8 [degF] Method: Oral [facility] 11:: [place] Physician s Heart Rate 2018-09-21 84 /min Location: [facility] 11:: Apical; [place] Physician s Procedures Procedure Date / Time Performing Source Performed Clinician [place] 2019-01-28 [place] o [facility] 00:00:00 Physicians XRAY Chest 2 views [id number] 2018-11-12 [facility] 00:00:00 Physicians IVIG Infusion Therapy 2018-11-11 [facility] 00:00:00 Physicians [QLH] CBC (INCLUDES DIFF/PLT) 2018[facility]11-[facility] [QLH] CMP W/EGFR 2018-11-11 [facility] 00:00:00 Physicians MA Bone Density Scan [id number] 2018-10-14 [facility] 00:00:00 Physicians History of [facility] xas Ventriculoperitoneal shunt Physi cians creation Plan of Care Planned Activity Planned Date Details Comments Source Diagnostic Test 2018-11-12 XRAY Chest 2 [facility] o f [place] Pending 00:00:00 views [id number] [code Physicians = [id number]] Encounters Start End Encounter Admission Attending Care Care Encounter Source Date/Time Date/Time Type Type Clinicians Facility Department ID 2019-02-05 Inpatient U [facility] [id number] [facility] 08:54:00 2018-12-24 Inpatient U [facility] [id number] [facility] 18:32:00 2018-08-16 Inpatient E [facility] [id number] [facility] 23:35:00 2019-11-22 2019-11-22 Inpatient E [facility] MED [id number] [facility] 12:06:00 03:48:00 2019-05-05 2019-05-05 NIRALI Olson Neurology - [id number] Univers 11:30:00 11:30:00 [facility] [place] [facility] ans 2019-01-25 2019-01-25 NIRALI Olson Neurology - [id number] Univers 08:00:00 08:00:00 t; [place] [facility] [place] [facility] [place] Physi ci ans 2018-11-29 2018-11-29 [id number] 07:33:00 07:33:00 2018-11-11 2018-11-11 NIRALI Olson Neurology - [id number] Univers 11:00:00 11:00:00 t; [place] [facility]AN [place] [facility] [place] Physi ci ans 2018-10-14 2018-10-14 NIRALI Olson Neurology [id number] Univers 11:30:00 11:30:00 t; [facility] ans 2018-09-21 2018-09-21 [id number] 18:06:00 18:06:00 2018-09-212018-09-21 Appointmen NIRALI DRAKE Neurology [id number] Univers 10:30:00 10:30:00 lisette CORRIGAN M.D. ity of Dougie DRAKE M.D. [facility] ans 2018-09-12 2018-09-10 Inpatient U [id number] 15:01:00 00:20:00 2018-09-09 2018-09-08 Inpatient U [facility] [id number] [facility] 11:57:00 09:51:00 l [facility] Results Test Description Test Time Test Comments Results Result Comments Source [[facility]] CMP W/EGFR 2018-11-18 12:32:00 Test Item Value Reference Range Interpretation Comme nts GLUCOSE; Above High 313 mg/dl 65-139 Non-fast ing reference interval Threshold (test code = 1547-9) UREA NITROGEN (BUN) (test 19 mg/dl 7-25 N code = UREA NITROGEN (BUN)) CREATININE (test code = 0.80 mg/dl 0.60-0.93 N For patients >49 years of age, CREATININE) the reference l imitfor Creatinine is a pproximately 13% higher for peop leidentified as -Rosette n. eGFR NON- 74 {ML/MIN/1.7} > OR = 60 N (test code = eGFR NON-) eGFR 86 {ML/MIN/1.7} > OR = 60 N (test code = eGFR ) BUN/CREATININE RATIO NOT APPLICABLE 6-22 (test code = BUN/CREATININE RATIO) SODIUM (test code = 134 mmol/L 135-146 SODIUM) POTASSIUM (test code = 4.0 mmol/L 3.5-5.3 N POTASSIUM) CHLORIDE (test code = 100 mmol/L 98-110 N CHLORIDE) CARBON DIOXIDE (test code 26 mmol/L 20-32 N = CARBON DIOXIDE) CALCIUM (test code = 8.5 mg/dl 8.6-10.4 CALCIUM) PROTEIN, TOTAL (test code 6.3 g/dl 6.1-8.1 N = PROTEIN, TOTAL) ALBUMIN (test code = 3.0 g/dl 3.6-5.1 ALBUMIN) GLOBULIN (test code = 3.3 {G/DL CALC} 1.9-3.7 N GLOBULIN) ALBUMIN/GLOBULIN RATIO 0.9 {CALC} 1.0-2.5 (test code = ALBUMIN/GLOBULIN RATIO) BILIRUBIN, TOTAL; Normal 0.5 mg/dl 0.2-1.2 N (test code = 26988-1) ALKALINE PHSPHATASE (test 156 u/l 33-130 code = ALKALINE PHSPHATASE) AST; Normal (test code = 34 u/l 10-35 N 1916-6) ALT; Above High Threshold 71 u/l 6-29 SP ECIMEN RECEIVED DATE AND (test code = 1742-6) TIME: 2 [id number] [facility] Physicians[[facility]] CBC (INCLUDES DIFF/PLT)2018-11-18 12:32:00 Test Item Value Reference Range Interpretation Comments WHITE BLOOD CELL 12.2 3.8-10.8 COUNT (test code = {Thousand/u} WHITE BLOOD CELL COUNT) RED BLOOD CELL 4.89 3.80-5.10 N COUNT (test code = {Million/uL} RED BLOOD CELL COUNT) HEMAGLOBIN; Normal 15.4 g/dl 11.7-15.5 N (test code = 81427-0) HEMATOCRIT; Above 45.8 % 35.0-45.0 High Threshold (test code = 4544-3) MCV; Normal (test 93.7 fL 80.0-100.0 N code = 787-2) MCHC; Normal (test 33.6 g/dl 32.0-36.0 N code = 44169-3) RDW; Normal (test 14.4 % 11.0-15.0 N code = 788-0) PLATELET COUNT; 177 140-400 N Normal (test code {Thousand/u} = 777-3) MPV; Normal (test 11.0 fL 7.5-12.5 N code = 82827-5) ABSOLUTE 57472 [id number] NEUTROPHILS (test {cells/uL} code = ABSOLUTE NEUTROPHILS) ABSOLUTE 4838 233-2366 N LYMPHOCYTES (test {cells/uL} code = ABSOLUTE [...] Normal 1.7 % N (test code = 97576-5) EOSINOPHILS; 0.1 % N Normal (test code = 07952-4) BASOPHILS; Normal 0.2 % N (test code = 74019-0) COMMENT(S) (test See Comment Review of p eripheral code = COMMENT(S)) smear con firmsautomated results.SPECIME N RECEIVED DATE A ND TIME: [facility] PhysiciansXRAY Chest 2 views [id number] 10:03:00 PROCEDURE: Chest Radiograph.Clinical Indication: Pneumonia.Comparison: Chest radiograph 09/17/2018.FINDINGS:The chest shows minimal subsegmental atelectasis at the left lung base. Nofocal consolidationis identified. There is left-sided RELIEF MAP MODELER shunt tubing. Thereare calcified granulomata in the upper lobes.The cardiac silhouette is upper limits of normal in size. Degenerative changeinvolves the thoracic spine and shoulders. An old distal right claviclefracture is suspected.IMPRESSION:1. Minimal left lower lobe subsegmental atelectasis.SL:[id number] by: Eleazra Hamilton MDDictated Date/time: 11/18/18 10:49Electronically Signed by: Eleazar Hamilton MD 11/18/1909:52FINAL [facility]UnL[facility] Bone Density [employer] [id number] 10:53:00BONE DENSITY ASSESSMENT: 10/21/2018CLINICAL DATA: Post menopausal [...] was performed 10/21/2018 on the AP L2- U9vskcom of spine using a Hologic unit. The [...] careprovider is recommended.This exam was interpreted at [id number] for CRISPIN Riojas 15. Betzy Caba M.D. ms/penrad:10/21/2018 12:45:40 Gym Supervisor(s): Hailey Cornejo [facility]--Read by: Betzy Caba MDDictated Date/time: 10/21/18 12:45Electronically Signed by: Betzy Caba MD 10/22/1911:45FINAL REPORTUnTimpanogos Regional Hospital [id number] 15:21:00Surgical Pathology Report Case: [id number] Authorizing Provider: Ruma Santana MD Collected: 02/24/2017 1559 Ordering Location: [facility] Received: 02/25/2017 0810 [...] SERRATED POLYP/ADENOMA Signing Pathologist Direct Phone Line: [phone] signed by Kenji Hercules MD on 02/26/2017 at 3:21 [id number] x 3Diarrhea, rule out microscopic colitisA. Right/ascending [...] METER 144 mg/dL 70-110 H TESTED AT [place] [address] ([facility]) (test code = [facility] 1538) [id number] POCT-GLUCOSE [id number] 14:21:00 Test Item Value Reference Range Interpretation Comments POC-GLUCOSE METER 118 mg/dL 70-110 H TESTED AT [place] [address] ([facility]) (test code = [facility] 1538) [id number]
[2020-01-17] MEDS ORDERED: NA CHLORIDE 0.9% 500 ML ONE (16:38)
[2020-01-17 16:44] LABS: Absolute Lymphocytes (CBC) 0.7 K/uL (0.7-4.9); Basophils % 0.6 % (0-1.3); Hematocrit 37.3 % (36.0-45.0); Lymphocytes % 4.9 % (15.3-44.8); MPV 9.3 fL (7.6-11.3); RBC Red Blood Cell Count 4.51 M/uL (3.86-4.86)
[2020-01-17 16:57] LABS: Magnesium 2.2 mg/dL (1.8-2.4); Potassium 4.1 mmol/L (3.5-5.1)
--- NOTE | 2020-01-17 17:39 | ER ---
Nurse's Notes [facility] Name: Franci Lange Age: 75 yrs Sex: Female : 1945 Arrival Date: 01/17/2020 Time: 15:14 Bed 18 Private MD: Diagnosis: Muscle weakness (generalized) Presentation: 01/16 15:09 Chief complaint: EMS states: Pt. is 75 yr. old, she was on the toilet and slipped off rb1 into the floor. Was able to walk after the incident, then had left sided weakness. Currently is wearing a neck brace for a C4 fracture from a previous fall on December 20 that was surgically repaired. Vital signs are stable. Pt. was able to walk and get on the stretcher without difficulty. 15:09 Risk Assessment: Do you want to hurt yourself or someone else? Patient reports no rb1 desire to harm self or others. Onset of symptoms was January 17, 2020. 15:09 Method Of Arrival: EMS: [facility] rb1 15:09 Acuity: JAY 3 rb1 15:09 Coronavirus screen: Client denies travel out of the [place] in the last 14 days. At this rb1 time, the client does not indicate any symptoms associated with coronavirus-19. Ebola Screen: Patient denies travel to an Ebola-affected area in the 21 days before illness onset. 15:09 No acute neurological deficit is noted. rb1 15:09 Initial Sepsis Screen: Does the patient meet any 2 criteria? No. Patient's initial rb1 sepsis screen is negative. Does the patient have a suspected source of infection? No. Patient's initial sepsis screen is negative. Triage Assessment: 15:09 The onset of the patients symptoms was January 17, 2020 at 14:30. General: Appears in no rb1 apparent distress. comfortable, Behavior is calm, cooperative, Denies feeling ill. Pain: Complains of pain in back Pain currently is 8 out of 10 on a pain scale. Pain began back and neck pain from previous injury in November. Neuro: Level of Consciousness is awake, alert, obeys commands, Oriented to person, place, time, situation, Stone Circular Sawyer are equal bilaterally Moves all extremities. Gait is steady, walked to the stretcher for EMS without difficulty, EMS held her hands while she ambulated. Speech is normal, Facial symmetry appears normal, Reports generalized weakness. Cardiovascular: Capillary refill < 3 seconds. Respiratory: Airway is patent Respiratory effort is even, unlabored, Respiratory pattern is regular, symmetrical. GI: No signs and/or symptoms were reported involving the gastrointestinal system. : No signs and/or symptoms were reported regarding the genitourinary system. Derm: Skin is pink, warm \T\ dry. 15:09 Musculoskeletal: Pt. is wearing a neck brace from a previous fall in November, C4 was rb1 surgically repaired. Historical: - Allergies: 15:09 Aspirin; rb1 15:09 cefepime; rb1 15:09 CEPHALOSPORINS; rb1 15: Ciprofloxacin; rb1 15:09 Cortisone; rb1 15: Cortizone-10; rb1 15:09 PENICILLINS; rb1 15:09 Phenobarbital; rb1 15: Tape; rb1 - Home Meds: 15:10 clonazepam 0.5 mg Oral tab 1 tab daily [Active]; Novolog 10 units Sub-Q soln before rb1 meals [Active]; Levemir 100 unit/mL subcutaneous soln 25 unit nightly [Active]; prednisone 20 mg Oral tab 1 tab once daily [Active]; potassium chloride 10 mEq Oral cpER 1 cap 3 times per day [Active]; amlodipine 10 mg tab 1 tab once daily [Active]; rosuvastatin 20 mg Oral tab 1 tab nightly [Active]; levothyroxine 88 mcg tab 1 tab once daily [Active]; pyridostigmine bromide 60 mg Oral tab 1 tab 3 times per day [Active]; ramipril 2.5 mg Oral cap 1 cap once daily [Active]; furosemide 40 mg Oral tab 1 tab once daily [Active]; furosemide 20 mg Oral tab 1 tab nightly [Active]; sertraline 25 mg Oral tab 1 tab once daily [Active]; sertraline 25 mg oral tab 1 tab once daily [Active]; - PMHx: 15:09 CHF; Depression; Diabetes - IDDM; High Cholesterol; Hypertension; Hypothyroidism; rb1 Myasthenia Gravis; Myocardial infarction; Osteoporosis; - PSHx: 15:09 brain shunt; menigioma; brain surgery; neck surgery; rb1 - Immunization history:: Adult Immunizations up to date. - Social history:: Smoking status: Patient/guardian denies using. Screenin:09 Abuse screen: Denies threats or abuse. Nutritional screening: No deficits noted. rb1 Tuberculosis screening: No symptoms or risk factors identified. Fall Risk Fall in past 12 months (25 points). Assessment: 15:09 General: See triage assessment. rb1 15:09 VAN Scoring: Arm Drift: Patients demonstrates NO arm weakness. Patient is VAN Negative. rb1 Visual Disturbance: No visual disturbance noted. Aphasia: No aphasia noted. Neglect: No neglect noted. 16:00 Reassessment: Patient appears in no apparent distress at this time. No changes from rb1 previously documented assessment. 17:06 Reassessment: Patient appears in no apparent distress at this time. Patient and/or rb1 family updated on plan of care and expected duration. Pain level reassessed. Patient is alert, oriented x 3, equal unlabored respirations, skin warm/dry/pink. Vital Signs: 15:09 BP 103 / 55; Pulse 76; Resp 16; Temp 98.1; Pulse Ox 97% on R/A; Weight 87.09 kg (R); rb1 Height 4 ft. 11 in. (149.86 cm) (R); Pain 8/10; 16:13 BP 128 / 45; Pulse 75; Resp 20; Pulse Ox 96% ; rb1 17:07 BP 144 / 71; Pulse 81; Resp 20; Pulse Ox 99% on R/A; rb1 15:09 Body Mass Index 38.78 (87.09 kg, 149.86 cm) rb1 ED Course: 15:09 Arm band placed on right wrist. rb1 15:09 Patient has correct armband on for positive identification. Bed in low position. Call rb1 light in reach. Side rails up X2. dough brake machine operator on. Pulse ox on. NIBP on. Warm blanket given. 15:14 Patient arrived in ED. rb1 15:18 Bertin Ponce PA is PHCP. jr8 15:18 Bob Callahan MD is Attending Physician. jr8 15:19 Triage completed. rb1 15:29 Елена Combs, RN is Primary Nurse. rb1 16:16 Initial lab(s) drawn, by me, sent to lab. Inserted saline lock: 22 gauge in left jl7 antecubital area, using aseptic technique. Blood collected. 18:17 No provider procedures requiring assistance completed. IV discontinued, intact, rb1 bleeding controlled, No redness/swelling at site. Pressure dressing applied. Administered Medications: 16:31 Drug: NS 0.9% 500 ml Route: IV; Rate: bolus; Site: left antecubital; rb1 17:04 Follow up: IV Status: Completed infusion rb1 Outcome: 17:38 Discharge ordered by MD. murillo 18:17 Discharged to home via wheelchair, with family. rb1 18:17 Condition: stable 18:17 Discharge instructions given to patient, Instructed on discharge instructions, follow up and referral plans. Demonstrated understanding of instructions, follow-up care, Prescriptions given X none 18:17 Patient left the ED. rb1 Signatures: Bertin Ponce PA PA jr8 Елена Combs, RN RN rb1 Mook Hargrove RN RN jl7 Corrections: (The following items were deleted from the chart) 15:34 15:09 BP 103 / 55; Pulse 76bpm; Resp 16bpm; Pulse Ox 97% RA; rb1 rb1 15:44 15:09 Neuro: Level of Consciousness is awake, alert, obeys commands, Oriented to rb1 person, place, time, situation, Stone Circular Sawyer are weak on left Moves all extremities. Gait is steady, walked to the stretcher for EMS without difficulty, EMS held her hands while she ambulated. Speech is normal, Facial symmetry appears normal, Reports weakness in left arm rb1 15:49 15:09 BP 103 / 55; Pulse 76bpm; Resp 16bpm; Pulse Ox 97% RA; Temp 98.1F; 65.77 kg rb1 Reported; Height 4 ft. 11 in. Reported; BMI: 29.2; Pain 8/10; rb1 18:26 18:26 Patient left the ED. rb1 rb1
--- NOTE | 2020-01-17 17:40 | EDPHYS ---
Physician Documentation [facility] Name: Franci Lange Age: 75 yrs Sex: Female : 1945 Arrival Date: 01/17/2020 Time: 15:14 Bed 18 Private MD: ED Physician Bob Callahan HPI: 01/16 17:04 This 75 yrs old Female presents to ER via EMS with complaints of General jr8 Weakness. 17:04 Patient stated that after she had a bowel movement fell generally weak. Denies falling. jr8 Stated that she was having trouble getting off of the toilet so was assisted down to ground. EMS called at that time. Patient from assisted living facility . Onset: The symptoms/episode began/occurred acutely, today. Severity of symptoms: At their worst the symptoms were moderate in the emergency department the symptoms are unchanged. The patient has not experienced similar symptoms in the past. The patient has not recently seen a physician. Historical: - Allergies: 15:09 Aspirin; rb1 15:09 cefepime; rb1 15:09 CEPHALOSPORINS; rb1 15:09 Ciprofloxacin; rb1 15:09 Cortisone; rb1 15:09 Cortizone-10; rb1 15:09 PENICILLINS; rb1 15:09 Phenobarbital; rb1 15:09 Tape; rb1 - Home Meds: 15:10 clonazepam 0.5 mg Oral tab 1 tab daily [Active]; Novolog 10 units Sub-Q soln before rb1 meals [Active]; Levemir 100 unit/mL subcutaneous soln 25 unit nightly [Active]; prednisone 20 mg Oral tab 1 tab once daily [Active]; potassium chloride 10 mEq Oral cpER 1 cap 3 times per day [Active]; amlodipine 10 mg tab 1 tab once daily [Active]; rosuvastatin 20 mg Oral tab 1 tab nightly [Active]; levothyroxine 88 mcg tab 1 tab once daily [Active]; pyridostigmine bromide 60 mg Oral tab 1 tab 3 times per day [Active]; ramipril 2.5 mg Oral cap 1 cap once daily [Active]; furosemide 40 mg Oral tab 1 tab once daily [Active]; furosemide 20 mg Oral tab 1 tab nightly [Active]; sertraline 25 mg Oral tab 1 tab once daily [Active]; sertraline 25 mg oral tab 1 tab once daily [Active]; - PMHx: 15:09 CHF; Depression; Diabetes - IDDM; High Cholesterol; Hypertension; Hypothyroidism; rb1 Myasthenia Gravis; Myocardial infarction; Osteoporosis; - PSHx: 15:09 brain shunt; menigioma; brain surgery; neck surgery; rb1 - Immunization history:: Adult Immunizations up to date. - Social history:: Smoking status: Patient/guardian denies using. ROS: 17:04 Eyes: Negative for injury, pain, redness, and discharge, ENT: Negative for injury, jr8 pain, and discharge, Neck: Negative for injury, pain, and swelling, Cardiovascular: Negative for chest pain, palpitations, and edema, Respiratory: Negative for shortness of breath, cough, wheezing, and pleuritic chest pain, Abdomen/GI: Negative for abdominal pain, nausea, vomiting, diarrhea, and constipation, Back: Negative for injury and pain, MS/Extremity: Negative for injury and deformity, Skin: Negative for injury, rash, and discoloration, Neuro: Negative for headache, numbness, tingling, and seizure. Positive for general weakness Exam: 17:04 Eyes: Pupils equal round and reactive to light, extra-ocular motions intact. Lids and jr8 lashes normal. Conjunctiva and sclera are non-icteric and not injected. Cornea within normal limits. Periorbital areas with no swelling, redness, or edema. ENT: Nares patent. No nasal discharge, no septal abnormalities noted. Tympanic membranes are normal and external auditory canals are clear. Oropharynx with no redness, swelling, or masses, exudates, or evidence of obstruction, uvula midline. Mucous membranes moist. Neck: Trachea midline, no thyromegaly or masses palpated, and no cervical lymphadenopathy. Supple, full range of motion without nuchal rigidity, or vertebral point tenderness. No Meningismus. Cardiovascular: Regular rate and rhythm with a normal S1 and S2. No gallops, murmurs, or rubs. Normal PMI, no JVD. No pulse deficits. Respiratory: Lungs have equal breath sounds bilaterally, clear to auscultation and percussion. No rales, rhonchi or wheezes noted. No increased work of breathing, no retractions or nasal flaring. Abdomen/GI: Soft, non-tender, with normal bowel sounds. No distension or tympany. No guarding or rebound. No evidence of tenderness throughout. Back: No spinal tenderness. No costovertebral tenderness. Full range of motion. Skin: Warm, dry with normal turgor. Normal color with no rashes, no lesions, and no evidence of cellulitis. MS/ Extremity: Pulses equal, no cyanosis. Neurovascular intact. Full, normal range of motion. Neuro: Awake and alert, GCS 15, oriented to person, place, time, and situation. Cranial nerves II-XII grossly intact. Motor strength 5/5 in all extremities. Sensory grossly intact. Cerebellar exam normal. Normal gait. Vital Signs: 15:09 BP 103 / 55; Pulse 76; Resp 16; Temp 98.1; Pulse Ox 97% on R/A; Weight 87.09 kg (R); rb1 Height 4 ft. 11 in. (149.86 cm) (R); Pain 8/10; 16:13 BP 128 / 45; Pulse 75; Resp 20; Pulse Ox 96% ; rb1 17:07 BP 144 / 71; Pulse 81; Resp 20; Pulse Ox 99% on R/A; rb1 15:09 Body Mass Index 38.78 (87.09 kg, 149.86 cm) rb1 MDM: 15:18 Patient medically screened. jr8 17:04 Data reviewed: vital signs, nurses notes, lab test result(s), EKG. Data interpreted: jr8 Pulse oximetry: on room air is 99 %. Interpretation: normal. Counseling: I had a detailed discussion with the patient and/or guardian regarding: the historical points, exam findings, and any diagnostic results supporting the discharge/admit diagnosis, lab results, the need for outpatient follow up, a family practitioner, to return to the emergency department if symptoms worsen or persist or if there are any questions or concerns that arise at home. 17:35 ED course: Patient feeling better. No fever. VS stable. Slight elevation in WBC but at jr8 this point unlikely to be infectious in origin. No focal neurologic deficits on exam. No meningism to neck. Stable since surgery last month. Will d/c home as there are findings on exam or labs necessitating admission at this time . 01/16 15:54 Order name: Urine Microscopic Only [facility] 01/16 15:54 Order name: CBC with Manual Differential rb1 01/16 15:55 Order name: Urine Microscopic Only; Complete Time: 17:48 EDLA 08/18 15:55 Order name: CBC with Manual Differential; Complete Time: 17:48 EDLA 01/16 15:55 Order name: BMP; Complete Time: 17:09 [facility] 01/16 15:55 Order name: BNP; Complete Time: 17:09 [facility] 01/16 15:54 Order name: Urine Dipstick-Ancillary (obtain specimen); Complete Time: 17:06 [facility] 01/16 15:55 Order name: EKG - Nurse/Tech; Complete Time: 16:15 [facility] 01/16 16:16 Order name: IV Start; Complete Time: 16:16 jl7 01/16 16:28 Order name: Magnesium; Complete Time: 17:09 EDMS 01/16 17:11 Order name: Urine Dipstick--Ancillary (enter results); Complete Time: 17:48 bd Administered Medications: 16:31 Drug: NS 0.9% 500 ml Route: IV; Rate: bolus; Site: left antecubital; rb1 17:04 Follow up: IV Status: Completed infusion rb1 Disposition: 18:54 Co-signature as Attending Physician, Bob Callahan MD. rn Disposition: 01/17/20 17:38 Discharged to Home. Impression: Muscle weakness (generalized). - Condition is Stable. - Discharge Instructions: Weakness. - Medication Reconciliation Form, Thank You Letter, Antibiotic Education, Prescription Opioid Use form. - Follow up: Private Physician; When: 2 - 3 days; Reason: Recheck today's complaints, Continuance of care, Re-evaluation by your physician. - Problem is new. - Symptoms have improved. Signatures: Dispatcher [employer] [facility] Bob Callahan MD MD rn Roszak, Josh, PA PA jr8 Елена Combs, RN RN rb1 Mook Hargrove RN RN jl7 Corrections: (The following items were deleted from the chart) 16:28 16:15 MAGNESIUM+C.LAB.BRZ ordered. [facility] EDLA 17:08 17:04 Eyes: Negative for injury, pain, redness, and discharge, ENT: Negative for jr8 injury, pain, and discharge, Neck: Negative for injury, pain, and swelling, Cardiovascular: Negative for chest pain, palpitations, and edema, Respiratory: Negative for shortness of breath, cough, wheezing, and pleuritic chest pain, Abdomen/GI: Negative for abdominal pain, nausea, vomiting, diarrhea, and constipation, Back: Negative for injury and pain, MS/Extremity: Negative for injury and deformity, Skin: Negative for injury, rash, and discoloration, Neuro: Negative for headache, weakness, numbness, tingling, and seizure, jr8 18:26 17:38 01/17/2020 17:38 Discharged to Home. Impression: Muscle weakness (generalized). rb1 Condition is Stable. Forms are Medication Reconciliation Form, Thank You Letter, Antibiotic Education, Prescription Opioid Use. Follow up: Private Physician; When: 2 - 3 days; Reason: Recheck today's complaints, Continuance of care, Re-evaluation by your physician. Problem is new. Symptoms have improved. jr8
[2020-01-17 17:44] LABS: Urine Bacteria <20 /HPF (<20); Urine RBC <5 /HPF (NONE SEEN)
[2020-01-17 17:45] LABS: Urine Culture Reflex Order NOT NEEDED
[2020-01-17 17:45] LABS: Urine Blood NEGATIVE (NEG); Urine Glucose NEGATIVE (NEG); Urine Protein NEGATIVE (NEG); Urine Specific Gravity 1.025 (1.005-1.030)
[2020-01-17 17:48] LABS: Anisocytosis 1+; Blood Morphology Comment NOTED (NOT SEEN); Platelet Estimate ADEQ
[2020-01-17 19:45] VITALS: TEMP 98.1
[2020-01-17 19:48] VITALS: BP 144/71; O2SAT 99
--- NOTE | 2020-01-19 08:44 | EKG ---
Test Date: 2020-01-17 Test Time: 16:29:10 [employer]: TM MEASUREMENT RESULTS: Intervals: Rate: 74 [place]: 162 QRSD: 80 QT: 380 QTc: 421 [place]: P: 51 [place]: 162 QRS: 26 T: 71 INTERPRETIVE STATEMENTS: Sinus rhythm with occasional premature ventricular complexes Inferior infarct, age undetermined Anterior infarct, age undetermined Abnormal ECG Compared to ECG 03/07/2019 19:47:16 Ventricular premature complex(es) now present Myocardial infarct finding still present Electronically Signed On 01-19-20 08:38:51 CDT by Jeet Valles
== END 2020-01-17 18:26 | disposition home or self-care (01) ==
LOC: ER 15:07
DX: M62.81 Muscle weakness (generalized) (principal); I10 Essential (primary) hypertension; E11.9 Type 2 diabetes mellitus without complications; Z79.4 Long term (current) use of insulin; E03.9 Hypothyroidism, unspecified; E78.00 Pure hypercholesterolemia, unspecified; I50.9 Heart failure, unspecified; F32.9 Major depressive disorder, single episode, unspecified; Z88.0 Allergy status to penicillin; Z88.1 Allergy status to other antibiotic agents; Z88.5 Allergy status to narcotic agent; Z88.6 Allergy status to analgesic agent; Z88.8 Allergy status to other drugs, medicaments and biological substances
CPT/HCPCS: 93005; 85025; 80048; 36415; 83735; 83880; 96360; 99284; J7040; 81003; 81015

== ENCOUNTER 2020-02-03 10:30 | Inpatient (IN) | payer OTHER ==
--- OUTSIDE RECORDS SUMMARY | 2020-02-03 10:31 | XMS REPORT | Clinical Summary ---
:1945 Author Organization [facility] Address [address] [place] [address] Care Team Providers Name Role Phone Ayush [...] Not on file Results Not on fileafter 02/02/2019 Insurance Payer Benefit Plan / Subscriber ID Type Phone Address Group [employer] - MEDICARE AETNA MEDICARE O xxxxxxxx [address] [place] [address] Advance Directives For more information, please contact:[address] [phone] Code Status Date Activated Date Inactivated Comments Full Code 02/13/2014 10:17 AM 02/13/2014 6:26 PM This code status was determined by: Patient
--- OUTSIDE RECORDS SUMMARY | 2020-02-03 10:32 | XMS REPORT | Continuity of Care Document ---
:1945 Author Organization [facility] t Address [address] [place] [address] Care Team Providers Name Role Phone Ayush [...] Allergy 02-13 [facility] - 00:00: Medical 00 [place] Salicyla Drug Active Rash [facility] Allergy 02-10 [facility] [place] Ciproflo Drug Active Anaphylaxis [facility] xacin Allergy 02-10 [facility] - :00: Medical 00 [place] Erythrom Drug Active Other (See Stomach [facility] y[facility] Intolera Comments) 02-10 cramping Rosio es - nce 00:00: Medical 00 [place] Levoflox Drug Active Anaphylaxis [facility] acin Allergy 02-10 [facility] - :00: Medical 00 [place] Aspirin Allergy Active [facility] TABS to drug ity of (finding [place] ) Physici ans Cefepime Allergy Active Univers HCl SOLN to drug ity of (finding [place] ) Physici ans Erythrom Allergy Active Univers ycin to drug ity of Derivati (finding [place] ves ) Physici ans Penicill Allergy Active Univers ins to drug ity of (finding [place] ) Physici ans PHENobar Allergy Active Univers bital to drug ity of TABS (finding [place] ) Physici ans Cortizon Allergy Active Univers e-10 to drug ity of (finding [place] ) Physici ans Social History Social Habit Start Date Stop Date Quantity Comments Source Sex Assigned At [facility] Smoking Status Start Date Stop Date Source Never smoker [facility] Medications Ordered Filled Start Stop Current Ordering Indication Dosage Frequency Signature Comments Components Source Medication Medication Date Date Medication? Clinician (SIG) Name Name Pyridostigm Pyridostigm Yes SUUR TAKE 1 Univers ine Ida ine Ida 6-25 BILICILER TABLET BY ity of 60 [...] Oral MG Oral ity of Capsule Capsule [place] Physici ans amLODIPine amLODIPine Yes Uni vers Besylate 5 Besylate 5 ity of MG Oral MG Oral [place] Tablet Tablet Physici ans Lantus SOLN Lantus SOLN Yes U nivers ity of [place] Physici ans Plavix 75 Plavix 75 Yes Unive rs MG Oral MG Oral ity of Tablet Tablet [place] Physici ans Gabapentin Gabapentin Yes Uni vers 100 MG TABS 100 MG TABS i ty of [place] Physici ans Vital Signs Vital Name Observation Time Observation Value Comments Source BP Systolic 2019-05-05 148 mm[Hg] [place] of 11:27:00 [place] Physician s BP Diastolic 2019-05-05 62 mm[Hg] [facility] 11:27:00 [place] Physician s Height 2019-05-05 59 [in_us] [facility] 11:27:00 [place] Physician s Temperature 2019-05-05 98.5 [degF] [facility] 11:27:00 [place] Physician s Heart Rate 2019-05-05 72 /min [facility] 11:27:00 [place] Physician s Height 2019-05-05 59 [in_us] [facility] 11:26:00 [place] Physician s Temperature 2019-05-05 98.5 [degF] [facility] 11:26:00 [place] Physician s Height 2019-01-25 59 [in_us] [facility] 08:41:00 [place] Physician s Temperature 2019-01-25 98.3 [degF] [facility] 08:41:00 [place] Physician s BP Systolic 2018-11-11 149 mm[Hg] Location: [facility] 12:31:00 Position: [place] Physician s Sitting BP Diastolic 2018-11-11 65 mm[Hg] Location: [facility] 12:31: Position: [place] Physician s Sitting Height 2018-11-11 59 [in_us] [facility] 12:31:00 [place] Physician s Weight 2018-11-11 213 [lb_av] [facility] 12:: [place] Physician s Body Mass Index 2018-11-11 43.02 kg/m2 University o f Calculated 12:31:00 [place] Physician s Temperature 2018-11-11 97.6 [degF] Method: Oral [facility] 12:: [place] Physician s Heart Rate 2018-11-11 74 /min Location: [facility] 12:31:00 Apical; [place] Physician s BP Systolic 2018-10-14 164 mm[Hg] [place] [facility] [facility] 12::00 Position: [place] Physician s Sitting BP Diastolic 2018-10-14 68 mm[Hg] Location: [facility] 12::00 Position: [place] Physician s Sitting Height 2018-10-14 59 [in_us] [facility] 12:27:00 [place] Physician s Weight 2018-10-14 215 [lb_av] [facility] 12::00 [place] Physician s Body Mass Index 2018-10-14 43.43 kg/m2 [place] o Calculated 12::00 [place] Physician s Temperature 2018-10-14 98.5 [degF] Method: Oral [facility] 12::00 [place] Physician s Heart Rate 2018-10-14 84 /min Location: [facility] 12::00 Apical; [place] Physician s BP Systolic 2018-09-21 136 mm[Hg] Location: [facility] 11:: [place] Physician s BP Diastolic 2018-09-21 88 mm[Hg] Location: [facility] 11:: [place] Physician s Height 2018-09-21 59 [in_us] University 11:28:00 [place] Physician s Weight 2018-09-21 205 [lb_av] [facility] 11:28: [place] Physician s Body Mass Index 2018-09-21 41.41 kg/m2 [place] o Calculated 11:28:00 [place] Physician s Temperature 2018-09-21 96.8 [degF] Method: Oral [facility] 11:: [place] Physician s Heart Rate 2018-09-21 84 /min Location: [facility] 11:: Apical; [place] Physician s Procedures Procedure Date / Time Performing Source Performed Clinician [place] 2019-01-28 [place] o [facility] 00:00:00 Physicians XRAY Chest 2 views [id number] 2018-11-12 [facility] 00:00:00 Physicians IVIG Infusion Therapy 2018-11-11 [facility] 00:00:00 Physicians [QLH] CBC (INCLUDES DIFF/PLT) 2018[facility]11-11 [facility] [[facility]] CMP W/EGFR 2018-11-11 [facility] exas 00:00:00 Physicians MA Bone Density Scan [id number] 2018-10-14 [facility] 00:00:00 Physicians History of [facility] xas Ventriculoperitoneal shunt Physi cians creation Plan of Care Planned Activity Planned Date Details Comments Source Diagnostic Test 2018-11-12 XRAY Chest 2 [facility] [place] Pending 00:00:00 views [id number] [code Physicians = [id number]] Encounters Start End Encounter Admission Attending Care Care Encounter Source Date/Time Date/Time Type Type Clinicians Facility Department ID 2019-02-05 Inpatient U [facility] [id number] [facility] 08:54:00 2018-12-24 Inpatient U [facility] [id number] [facility] 18:32:00 2018-08-16 Inpatient E [facility] [id number] [facility] 23:35:00 2019-11-22 2019-11-22 Inpatient E [facility] MED [id number] [facility] 12:06:00 03:48:00 2019-05-05 2019-05-05 NIRALI Olson Neurology - [id number] Univers 11:30:00 11:30:00 [facility] [place] [facility] ans 2019-01-25 2019-01-25 NIRALI Olson Neurology - [id number] Univers 08:00:00 08:00:00 t; [place] [facility] [place] [facility] [place] [facility] ans 2018-11-29 2018-11-29 [id number] 07:33:00 07:33:00 2018-11-11 2018-11-11 NIRALI Olson Neurology - [id number] Univers 11:00:00 11:00:00 t; [place] [facility] [place] [facility] [place] [facility] ci ans 2018-10-14 2018-10-14 NIRALI Olson Neurology [id number] Univers 11:30:00 11:30:00 t; [facility] ans 2018-09-21 2018-09-21 [id number] 18:06:00 18:06:00 2018-09-212018-09-21 Appointmen NIRALI DRAKE Neurology [id number] Univers 10:30:00 10:30:00 lisette CORRIGAN M.D. ity of Dougie DRAKE M.D. [facility] ans 2018-09-12 2018-09-10 Inpatient U [facility] [id number] [facility] 15:01:00 00:20:00 2018-09-09 2018-09-08 Inpatient U [facility] [id number] [facility] 11:57:00 09:51:00 l [facility] l [facility] Results Test Description Test Time Test Comments Results Result Comments Source [[facility]] CMP W/EGFR 2018-11-18 12:32:00 Test Item Value [...] 0.5 mg/dl 0.2-1.2 N (test code = 06195-2) ALKALINE PHSPHATASE (test 156 u/l 33-130 code = ALKALINE PHSPHATASE) AST; Normal (test code = 34 u/l 10-35 N 1916-6) ALT; Above High Threshold 71 u/l 6-29 SP ECIMEN RECEIVED DATE AND (test code = 1742-6) TIME: 2 [id number] [facility] Physicians[[facility]] CBC (INCLUDES DIFF/PLT)2018-11-18 12:32:00 Test Item Value Reference Range Interpretation Comments WHITE BLOOD CELL 12.2 3.8-10.8 COUNT (test code = {Thousand/u} WHITE BLOOD CELL COUNT) RED BLOOD CELL 4.89 3.80-5.10 N COUNT (test code = {Million/uL} RED BLOOD CELL COUNT) HEMAGLOBIN; Normal 15.4 g/dl 11.7-15.5 N (test code = 56899-0) HEMATOCRIT; Above 45.8 % 35.0-45.0 High Threshold (test code = 4544-3) MCV; Normal (test 93.7 fL 80.0-100.0 N code = 787-2) MCHC; Normal (test 33.6 g/dl 32.0-36.0 N code = 66525-6) RDW; Normal (test 14.4 % 11.0-15.0 N code = 788-0) PLATELET COUNT; 177 140-400 N Normal (test code {Thousand/u} = 777-3) MPV; Normal (test 11.0 fL 7.5-12.5 N code = 20478-1) ABSOLUTE 89346 [phone] NEUTROPHILS (test {cells/uL} code = ABSOLUTE NEUTROPHILS) ABSOLUTE 5181 173-8362 N LYMPHOCYTES (test {cells/uL} code = ABSOLUTE [...] Normal 1.7 % N (test code = 55042-6) EOSINOPHILS; 0.1 % N Normal (test code = 14722-2) BASOPHILS; Normal 0.2 % N (test code = 21528-0) COMMENT(S) (test See Comment Review of p eripheral code = COMMENT(S)) smear con firmsautomated results.SPECIME N RECEIVED DATE A ND TIME: [facility] PhysiciansXRAY Chest 2 views [id number] 10:03:00 PROCEDURE: Chest Radiograph.Clinical Indication: Pneumonia.Comparison: Chest radiograph 09/17/2018.FINDINGS:The chest shows minimal subsegmental atelectasis at the left lung base. Nofocal consolidationis identified. 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 Thereare calcified granulomata in the upper lobes.The cardiac silhouette is upper limits of normal in size. Degenerative changeinvolves the thoracic spine and shoulders. An old distal right claviclefracture is suspected.IMPRESSION:1. Minimal left lower lobe subsegmental atelectasis.SL:[id number]--Miuf by: Eleazar Hamilton MDDictated Date/time: 11/18/18 10:49Electronically Signed by: Eleazar Hamilton MD 11/18/1909:52FINAL REPORTUnAlta View Hospital Bone Density [employer] [id number] 10:53:00BONE DENSITY ASSESSMENT: 10/21/2018CLINICAL DATA: Post menopausal [...] was performed 10/21/2018 on the AP L2- P1fepnhr of spine using a Hologic unit. The [...] careprovider is recommended.This exam was interpreted at [id number] for CRISPIN [place] 15. Betzy Caba M.D. ms/penrad:10/21/2018 12:45:40 Frozen Yogurt Maker(s): Hailey Cornejo [facility]--Read by: Betzy Caba MDDictated Date/time: 10/21/18 12:45Electronically Signed by: Betzy Caba MD 10/22/1911:45FINAL REPORTUnSevier Valley Hospital [id number] 15:21:00Surgical Pathology Report Case: [id number] Authorizing Provider: Ruma Santana MD Collected: 02/24/2017 1559 Ordering Location: [facility] Received: 02/25/2017 0810 Pathologist: [...] SERRATED POLYP/ADENOMA Signing Pathologist Direct Phone Line: [phone] signed by Kenji Hercules MD on 02/26/2017 at 3:21 [id number] x 3Diarrhea, rule out microscopic colitisA. Right/ascending [...] METER 144 mg/dL 70-110 H TESTED AT [place] [address] ([facility]) (test code = [facility] 1538) [id number] POCT-GLUCOSE [id number] 14:21:00 Test Item Value Reference Range Interpretation Comments POC-GLUCOSE METER 118 mg/dL 70-110 H TESTED AT [place] [address] ([facility]) (test code = [facility] 1538) [address]
[2020-02-03 11:00] LABS: Urine Blood NEGATIVE (NEG); Urine Glucose NEGATIVE (NEG); Urine Protein NEGATIVE (NEG); Urine Specific Gravity 1.015 (1.005-1.030)
--- NOTE | 2020-02-03 11:39 | RAD REPORT ---
EXAM DESCRIPTION: CT - Head Brain Wo Cont - 02/03/2020 11:31 am CLINICAL HISTORY: WEAKNESS Headache, drowsiness, weakness COMPARISON: Facial Bones W/ Mpr dated 11/21/2019; Head Brain Wo Cont dated 09/07/2018; Head C Spine Mpr Wo Con dated 11/21/2019; Thorax Wo Con dated 11/22/2019; HEAD BRAIN W O CONTRAST dated 01/23/2011 TECHNIQUE: All CT scans are performed using dose optimization technique as appropriate and may inclu de automated exposure control or mA/KV adjustment according to patient size. FINDINGS: Postsurgical changes are present in the right frontal lobe. Mass is present with dystrophi c calcifications measuring 3.7 x 2.6 cm in the frontal lobe region.Right-sided craniotomy changes are seen.No acute hemorrhage is identified. No hydrocephalus. The paranasal sinuses and mastoids are clear. Bony hyperostosis of the skull base anteriorly identifi ed. IMPRESSION: No acute intracranial abnormality. Postsurgical changes in the right frontal lobe with partially calcified mass right paramidline clival region, unchanged.
--- NOTE | 2020-02-03 11:53 | RAD REPORT ---
EXAM DESCRIPTION: RAD - Chest Single View - 02/03/2020 11:37 am CLINICAL HISTORY: COUGH Chest pain. COMPARISON: Chest Pa And Lat (2 Views) dated 02/01/2020; Chest Single View dated 04/13/2019; Chest Sin gle View dated 02/05/2019; Chest Single View dated 01/23/2019 FINDINGS: Portable technique limits examination quality. The lungs are grossly clear. The heart is normal in size. Left-sided port catheter its tip in the SVC .Shunt tubing traverses the left chest. IMPRESSION: No acute intrathoracic process suspected.
[2020-02-03] MEDS ORDERED: IPRATROPIUM BROM 0.5MG/2.5ML ONE (12:06)
[2020-02-03] MEDS ORDERED: ALBUTEROL 2.5 MG/3 ML NEB SOL ONE (12:06)
[2020-02-03] MEDS ORDERED: D5 0.45 NS 1,000 ML IV ONE (12:07)
[2020-02-03] MEDS ORDERED: D50W 25 GM/50 ML SYRINGE/VIAL IV ONE (12:07)
[2020-02-03 13:04] LABS: Absolute Lymphocytes (CBC) 2.9 K/uL (0.7-4.9); Basophils % 1.3 % (0-1.3); Hematocrit 37.9 % (36.0-45.0); Lymphocytes % 22.6 % (15.3-44.8); RBC Red Blood Cell Count 4.72 M/uL (3.86-4.86)
[2020-02-03 13:22] LABS: ALT/SGPT 96 U/L (12-78); AST/SGOT 43 U/L (15-37); Albumin 2.7 g/dL (3.4-5.0); Alkaline Phosphatase 210 U/L (45-117); BUN Blood Urea Nitrogen 14 mg/dL (7-18); Bicarbonate 30 mmol/L (21-32); Bilirubin Direct < 0.1 mg/dL (0-0.2); Bilirubin Total 0.4 mg/dL (0.2-1.0); Glucose Level 205 mg/dL (74-106); Magnesium 2.2 mg/dL (1.8-2.4); Potassium 3.2 mmol/L (3.5-5.1); Sodium Level 142 mmol/L (136-145); Troponin (Emerg Dept Use Only) 0.04 ng/mL (0.0-0.045)
--- NOTE | 2020-02-03 13:51 | ER ---
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 Ebola Screen: No symptoms or risks identified at this time. Risk Assessment: Do you want to hurt yourself or someone else? Patient reports no desire to harm self or others. Onset of symptoms was February 03, 2020. Care prior to arrival: Medication(s) given: D10 IV initiated. 20 GA, in the left antecubital area, Glucose check: 26. Transition of care: patient was received from another setting of care (long-term care facility), [facility]. 10:35 Method Of Arrival: EMS: [facility] jl7 10:35 Acuity: JAY 2 jl7 10:35 Coronavirus screen: The client indicates previous COVID test results are pending. tw2 Initial Sepsis Screen: Does the patient meet any 2 criteria? Altered Mental Status. Does the patient have a suspected source of infection? Yes: Productive cough/pneumonia. Triage Assessment: 10:35 General: Appears obese, Behavior is quiet. Pain: Unable to use pain scale. Neuro: Level tw2 of Consciousness is confused, pt answers by moving head yes or no. Oriented to person. Historical: - Allergies: 11:31 Aspirin; jl7 11:31 cefepime; jl7 11:31 CEPHALOSPORINS; jl7 11:31 Ciprofloxacin; jl7 11:31 Cortisone; jl7 11:31 Cortizone-10; jl7 11:31 PENICILLINS; jl7 11:31 Phenobarbital; jl7 11:31 Tape; jl7 13:33 IVIG; jl7 - Home Meds: 11:31 clonazepam 0.5 mg Oral tab 1 tab daily [Active]; pyridostigmine bromide 60 mg Oral tab jl7 1 tab 3 times per day [Active]; Novolog 10 units Sub-Q soln before meals [Active]; Levemir 100 unit/mL subcutaneous soln 25 unit nightly [Active]; prednisone 20 mg Oral tab 1 tab once daily [Active]; potassium chloride 10 mEq Oral cpER 1 cap 3 times per day [Active]; amlodipine 10 mg tab 1 tab once daily [Active]; rosuvastatin 20 mg Oral tab 1 tab nightly [Active]; levothyroxine 88 mcg tab 1 tab once daily [Active]; ramipril 2.5 mg Oral cap 1 cap once daily [Active]; furosemide 20 mg Oral tab 1 tab nightly [Active]; sertraline 25 mg Oral tab 1 tab once daily [Active]; - PMHx: 11:31 Myasthenia Gravis; Hypertension; Anxiety; High Cholesterol; Diabetes - IDDM; CHF; jl7 Depression; Hypothyroidism; Myocardial infarction; Osteoporosis; - PSHx: 11:31 brain shunt; menigioma; neck surgery; brain surgery; jl7 - Immunization history:: Adult Immunizations up to date. - Social history:: Smoking status: unknown. - Family history:: not pertinent. Screenin:32 Abuse screen: Denies threats or abuse. Nutritional screening: No deficits noted. tw2 Tuberculosis screening: No symptoms or risk factors identified. Fall Risk Secondary diagnosis (15 points) impaired mobility. Assessment: 10:40 General: Appears obese, well groomed, Behavior is turns head when name is called, can tw2 shake head yes or no at this time.. Neuro: Level of Consciousness is drowsy. Oriented to person. Cardiovascular: Heart tones S1 S2 Cardiovascular: Capillary refill < 3 seconds. Respiratory: Respiratory: Airway is patent Respiratory effort is even, unlabored, Respiratory pattern is regular, symmetrical, Breath sounds with crackles bilaterally. with audible crackles noted. GI: Abdomen is round non-distended, obese, Bowel sounds present X 4 quads. : No signs and/or symptoms were reported regarding the genitourinary system. EENT: No signs and/or symptoms were reported regarding the EENT system. Derm: Skin is fragile, is thin, with poor turgor Skin is dry, Skin temperature is cool Bruising that is bright red, dark purple, on abdomen, right arm, left arm, right leg and left leg. Musculoskeletal: Circulation, motion, and sensation intact. 11:25 Reassessment: Pt to CT VIA stretcher. tw2 12:26 Reassessment: several unsuccessful attempts to obtain blood at this time, provider tw2 notified, central line set up at this time per provider. 13:00 Reassessment: pt states "where am i" at this time, educated pt as to her location and tw2 health conditions. 13:20 Reassessment: Patient and/or family updated on plan of care and expected duration. Pain tw2 level reassessed. 14:23 Reassessment: Patient and/or family updated on plan of care and expected duration. Pain tw2 level reassessed. pt arousable to name at this time. 15:20 Reassessment: Patient and/or family updated on plan of care and expected duration. Pain tw2 level reassessed. 16:20 Reassessment: Patient and/or family updated on plan of care and expected duration. Pain tw2 level reassessed. 17:16 Reassessment: Patient appears in no apparent distress at this time. Patient and/or tw2 family updated on plan of care and expected duration. Pain level reassessed. pt is opening her eyes at this time, states "no" to every question asked. pt reoriented to location and need for admission to hospital. 19:31 General: Appears in no apparent distress. comfortable, Behavior is calm, cooperative. mg2 Neuro: Level of Consciousness is awake, alert, Oriented to person. Cardiovascular: Capillary refill < 3 seconds Patient's skin is warm and dry. Respiratory: Airway is patent on Oxygen \\T\\ 2 l/min. GI: No signs and/or symptoms were reported involving the gastrointestinal system. Derm: Bruising that is dark purple, on left leg. Vital Signs: 10:35 BP 111 / 57; Pulse 58; Resp 23 S; Pulse Ox 90% on R/A; jl7 11:51 Temp 92.4(C); Weight 99.79 kg (R); tw2 13:00 BP 155 / 61; Pulse 68; Resp 22; Temp 92.5(C); Pulse Ox 100% on 2 lpm NC; tw2 13:15 BP 138 / 58; Pulse 58; Resp 21; Temp 92.9(C); Pulse Ox 100% on 2 lpm NC; tw2 13:32 Temp 93.1(C); tw2 14:23 BP 141 / 56; Pulse 70; Resp 20; Temp 93.9(C); Pulse Ox 100% on 2 lpm NC; tw2 15:20 BP 109 / 33; Pulse 65; Resp 19; Temp 94.9(C); Pulse Ox 100% on R/A; tw2 15:40 Temp 95.8(C); tw2 16:00 Temp 97.0(C); tw2 16:20 BP 134 / 51; Pulse 77; Resp 17; Temp 97.4(C); Pulse Ox 100% on 2 lpm NC; tw2 17:17 BP 141 / 55; Pulse 88; Resp 19; Temp 98.7(C); Pulse Ox 100% on 2 lpm NC; tw2 17:49 Temp 99.1(C); tw2 18:45 BP 137 / 84; Pulse 82; Resp 17; Pulse Ox 100% on 2 lpm NC; tw2 19:30 BP 130 / 36; Pulse 85; Resp 19; Temp 100.4; Pulse Ox 100% on 2 lpm NC; rv 21:39 BP 123 / 55; Pulse 81; Resp 18; Temp 99.9(C); Pulse Ox 100% on 2 lpm NC; mg2 11:51 by spouse, bear hugger applied at this time tw2 17:49 bear hugger turned off at this time, will continue to monitor tw2 ED Course: 10:35 Patient arrived in ED. em1 10:35 Bed in low position. Side rails up X2. wet pour mixer on. Pulse ox on. NIBP on. Warm tw2 blanket given. 10:37 Luther Vang MD is Attending Physician. [facility] 10:51 Mook Hargrove, RENAY is Primary Nurse. jl7 10:59 Triage completed. jl7 11:00 Speci-cath kit inserted, using sterile technique, 16 Fr., specimen obtained. returned jl7 clear yellow urine. Patient tolerated well. 11:17 EKG done, by ED staff, reviewed by Luther Vang MD. em1 11:31 CT Head Brain wo Cont In Process Unspecified. EDMS 11:31 Arm band placed on. tw2 11:38 XRAY Chest (1 view) In Process Unspecified. EDMS 12:10 Missed attempt(s): 22 gauge in right antecubital area. per RENAY Delvalle. Missed tw2 attempt(s): 22 gauge in right antecubital area. per RENAY Delvalle, charge nurse notified of need for blood at this time.. Bleeding controlled, band aid applied, catheter tip intact. 12:45 Assisted provider with central line placement. Set up central line tray. Triple lumen tw2 line placed in right femoral. Line placed by Luther Vang MD Placement verified by blood return, Dressed with Tegaderm, Blood was collected. Patient tolerated well. 12:59 Primary Nurse role handed off by Mook Hargrove RN tw2 12:59 Lorena Mensah RN is Primary Nurse. tw2 13:48 Pako Callahan MD is Hospitalizing Provider. augusta 17:29 COVID-19 Sent. tw2 19:32 Patient admitted, IV remains in place. mg2 Administered Medications: Discontinued: D5-1/2 NS 1000 ml IV at 125 ml/hr continuous 11:52 Not Given (Duplicate Order): NS 0.9% 1000 ml IV at 125 ml/hr continuous augusta 11:59 Drug: D50W 50 ml Route: IVP; Site: left antecubital; tw2 13:01 Follow up: Response: No adverse reaction; Blood sugar is elevated tw2 12:02 Drug: D5-1/2 NS 1000 ml Route: IV; Rate: 125 ml/hr; Site: left antecubital; tw2 12:09 Drug: Albuterol 2.5 mg Route: Inhalation; tw2 12:09 Drug: AtroVENT Aerosol 0.5 mg Route: Inhalation; tw2 13:18 Drug: Meropenem 1 grams Route: IV; Rate: per protocol; Site: right femoral; tw2 14:20 Follow up: Response: No adverse reaction; IV Status: Completed infusion tw2 13:56 Drug: D5-1/2 NS with KCl 20 mEq/L 1000 ml Route: IV; Rate: 125 ml/hr; Site: right tw2 femoral; 14:00 Follow up: IV Status: Infusion continued upon admission jl7 Point of Care Testing: Blood Glucose: 11:50 Blood Glucose: 58 mg/dL; tw2 17:16 Blood Glucose: 200 mg/dL; tw2 11:50 provider notified. tw2 Ranges: Outcome: 13:50 Decision to Hospitalize by Provider. augusta 21:57 Admitted to ICU via stretcher, room 11, with chart, Report called to RENAY Lion mg2 21:57 Condition: stable 21:57 Instructed on the need for admit, Demonstrated understanding of instructions. 21:58 Patient left the ED. mg2 Signatures: Dispatcher [employer] Luther Palomares MD MD cha Martinez, Eric em1 Lorena Mensah RN RN tw2 Mook Hargrove RN RN jl7 Skip Padgett RN RN mg2 Derek Rudd RN RN rv Corrections: (The following items were deleted from the chart) 12:27 12:26 Reassessment: several unsuccessful attempts to obtain blood at this time, tw2 provider notified, central line set up at this time. tw2 13:01 13:00 BP 155 / 61; Pulse 68bpm; Resp 22bpm; Pulse Ox 100% 2 lpm Nasal Cannula; tw2 tw2 17:19 16:20 BP 134 / 51; Pulse 77bpm; Resp 17bpm; Pulse Ox 100% 2 lpm Nasal Cannula; tw2 tw2
--- NOTE | 2020-02-03 13:51 | EDPHYS ---
Physician Documentation [facility] Name: Franci Lange Age: 75 yrs Sex: Female : 1945 Arrival Date: 02/03/2020 Time: 10:[address] Private MD: DILCIA Physician Luther Vang HPI: 02/02 11:08 This 75 yrs old Female presents to ER via EMS with complaints of ams and low augusta blood sugar. 11:08 The patient presents with confusion, decreased responsiveness, trouble concentrating. augusta Onset: The symptoms/episode began/occurred just prior to arrival. Possible causes: CVA or TIA, drug use, low blood sugar. Associated signs and symptoms: The patient has no apparent associated signs or symptoms. Current symptoms: In the emergency department the patient's symptoms have improved, mildly. The patient has experienced similar episodes in the past, several times. Historical: - Allergies: 11:31 Aspirin; jl7 11:31 cefepime; jl7 11:31 CEPHALOSPORINS; jl7 11:31 Ciprofloxacin; jl7 11:31 Cortisone; jl7 11:31 Cortizone-10; jl7 11:31 PENICILLINS; jl7 11:31 Phenobarbital; jl7 11:31 Tape; jl7 13:33 IVIG; jl7 - Home Meds: 11:31 clonazepam 0.5 mg Oral tab 1 tab daily [Active]; pyridostigmine bromide 60 mg Oral tab jl7 1 tab 3 times per day [Active]; Novolog 10 units Sub-Q soln before meals [Active]; Levemir 100 unit/mL subcutaneous soln 25 unit nightly [Active]; prednisone 20 mg Oral tab 1 tab once daily [Active]; potassium chloride 10 mEq Oral cpER 1 cap 3 times per day [Active]; amlodipine 10 mg tab 1 tab once daily [Active]; rosuvastatin 20 mg Oral tab 1 tab nightly [Active]; levothyroxine 88 mcg tab 1 tab once daily [Active]; ramipril 2.5 mg Oral cap 1 cap once daily [Active]; furosemide 20 mg Oral tab 1 tab nightly [Active]; sertraline 25 mg Oral tab 1 tab once daily [Active]; - PMHx: 11:31 Myasthenia Gravis; Hypertension; Anxiety; High Cholesterol; Diabetes - IDDM; CHF; jl7 Depression; Hypothyroidism; Myocardial infarction; Osteoporosis; - PSHx: 11:31 brain shunt; menigioma; neck surgery; brain surgery; jl7 - Immunization history:: Adult Immunizations up to date. - Social history:: Smoking status: unknown. - Family history:: not pertinent. ROS: 11:08 Constitutional: Negative for fever, chills, and weight loss, Eyes: Negative for injury, augusta pain, redness, and discharge, ENT: Negative for injury, pain, and discharge, Neck: Negative for injury, pain, and swelling, Cardiovascular: Negative for chest pain, palpitations, and edema, Abdomen/GI: Negative for abdominal pain, nausea, vomiting, diarrhea, and constipation, Back: Negative for injury and pain, : Negative for injury, bleeding, discharge, and swelling, MS/Extremity: Negative for injury and deformity, Skin: Negative for injury, rash, and discoloration, Psych: Negative for depression, anxiety, suicide ideation, homicidal ideation, and hallucinations, Allergy/Immunology: Negative for hives, rash, and allergies, Endocrine: Negative for neck swelling, polydipsia, polyuria, polyphagia, and marked weight changes, Hematologic/Lymphatic: Negative for swollen nodes, abnormal bleeding, and unusual bruising. 11:08 Respiratory: Positive for cough, with no reported sputum. 11:08 Neuro: Positive for altered mental status, weakness. Exam: 11:08 Constitutional: This is a well developed, well nourished patient who is awake, alert, augusta and in no acute distress. Head/Face: Normocephalic, atraumatic. Eyes: Pupils equal round and reactive to light, extra-ocular motions intact. Lids and lashes normal. Conjunctiva and sclera are non-icteric and not injected. Cornea within normal limits. Periorbital areas with no swelling, redness, or edema. ENT: Nares patent. No nasal discharge, no septal abnormalities noted. Tympanic membranes are normal and external auditory canals are clear. Oropharynx with no redness, swelling, or masses, exudates, or evidence of obstruction, uvula midline. Mucous membranes moist. Neck: Trachea midline, no thyromegaly or masses palpated, and no cervical lymphadenopathy. Supple, full range of motion without nuchal rigidity, or vertebral point tenderness. No Meningismus. Chest/axilla: Normal chest wall appearance and motion. Nontender with no deformity. No lesions are appreciated. Cardiovascular: Regular rate and rhythm with a normal S1 and S2. No gallops, murmurs, or rubs. Normal PMI, no JVD. No pulse deficits. Abdomen/GI: Soft, non-tender, with normal bowel sounds. No distension or tympany. No guarding or rebound. No evidence of tenderness throughout. Back: No spinal tenderness. No costovertebral tenderness. Full range of motion. Female : Normal external genitalia. Skin: Warm, dry with normal turgor. Normal color with no rashes, no lesions, and no evidence of cellulitis. MS/ Extremity: Pulses equal, no cyanosis. Neurovascular intact. Full, normal range of motion. Psych: Awake, alert, with orientation to person, place and time. Behavior, mood, and affect are within normal limits. 11:08 Respiratory: the patient does not display signs of respiratory distress, Respirations: normal, Breath sounds: bronchial sounds, rhonchi. 11:08 Neuro: Orientation: to person, place, Not oriented to time, situation, Mentation: slow to respond, Memory: no acute changes, unable to test, Cranial nerves: grossly normal, is grossly normal based on the patient's age, no acute changes, Cerebellar function: Motor: Sensation: no obvious gross deficits, appropriate no acute changes, Gait: not applicable not tested. seizure activity, is not displayed by the patient. 13:51 ECG was reviewed by the Attending Physician. augusta Vital Signs: 10:35 BP 111 / 57; Pulse 58; Resp 23 S; Pulse Ox 90% on R/A; jl7 11:51 Temp 92.4(C); Weight 99.79 kg (R); tw2 13:00 BP 155 / 61; Pulse 68; Resp 22; Temp 92.5(C); Pulse Ox 100% on 2 lpm NC; tw2 13:15 BP 138 / 58; Pulse 58; Resp 21; Temp 92.9(C); Pulse Ox 100% on 2 lpm NC; tw2 13:32 Temp 93.1(C); tw2 14:23 BP 141 / 56; Pulse 70; Resp 20; Temp 93.9(C); Pulse Ox 100% on 2 lpm NC; tw2 15:20 BP 109 / 33; Pulse 65; Resp 19; Temp 94.9(C); Pulse Ox 100% on R/A; tw2 15:40 Temp 95.8(C); tw2 16:00 Temp 97.0(C); tw2 16:20 BP 134 / 51; Pulse 77; Resp 17; Temp 97.4(C); Pulse Ox 100% on 2 lpm NC; tw2 17:17 BP 141 / 55; Pulse 88; Resp 19; Temp 98.7(C); Pulse Ox 100% on 2 lpm NC; tw2 17:49 Temp 99.1(C); tw2 18:45 BP 137 / 84; Pulse 82; Resp 17; Pulse Ox 100% on 2 lpm NC; tw2 19:30 BP 130 / 36; Pulse 85; Resp 19; Temp 100.4; Pulse Ox 100% on 2 lpm NC; rv 21:39 BP 123 / 55; Pulse 81; Resp 18; Temp 99.9(C); Pulse Ox 100% on 2 lpm NC; mg2 11:51 by spouse, bear hugger applied at this time tw2 17:49 bear hugger turned off at this time, will continue to monitor tw2 Procedures: 12:54 Central Line: the site was prepped with Betadine, in sterile fashion, a triple lumen augusta catheter was inserted, in the right femoral vein, in 1 attempts. placement was verified, by blood return, the site was dressed with using sterile technique, the patient tolerated the procedure, well. MDM: 10:37 Patient medically screened. aug[place] 11:12 Data reviewed: vital signs, nurses notes, lab test result(s), EKG, radiologic studies, augusta CT scan, plain films. 13:43 Differential Diagnosis: CVA, electrolyte abnormality, hypoglycemia, intracranial bleed, augusta pneumonia, sepsis, TIA, UTI, volume depletion. 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 Test interpretation: by ED physician or midlevel provider: ECG, plain radiologic studies. Counseling: I had a detailed discussion with the patient and/or guardian regarding: the historical points, exam findings, and any diagnostic results supporting the discharge/admit diagnosis, lab results, radiology results, the need for further work-up and treatment in the hospital. ED course: weak, hypoglycemia, hypothermic, ro sepsis. 02/02 10:57 Order name: Urine Dipstick--Ancillary (enter results) em1 02/02 10:57 Order name: Urine Dipstick-Ancillary; Complete Time: 12:21 EDMS 02/02 11:08 Order name: Basic Metabolic Panel; Complete Time: 13:35 [facility] 02/02 11:08 Order name: CBC with Diff; Complete Time: 13:35 [facility] 02/02 11:08 Order name: LFT's; Complete Time: 13:35 [facility] 02/02 11:08 Order name: Magnesium; Complete Time: 13:35 [facility] 02/02 11:08 Order name: Troponin (emerg Dept Use Only); Complete Time: 13:35 [facility] 02/02 11:08 Order name: Blood Culture Adult (2) [facility] 02/02 11:08 Order name: Procalcitonin; Complete Time: 13:35 [facility] 02/02 11:10 Order name: Glucose, Ancillary Testing; Complete Time: 12:21 EDME 02/02 12:00 Order name: Glucose, Ancillary Testing; Complete Time: 12:21 EDME 02/02 12:01 Order name: Glucose, Ancillary Testing EDME 02/02 12:21 Order name: Lactate; Complete Time: 13:35 [facility] 02/02 13:08 Order name: Glucose, Ancillary Testing; Complete Time: 13:35 EDMS 02/02 11:08 Order name: XRAY Chest (1 view); Complete Time: 12:21 [facility] 02/02 11:08 Order name: EKG; Complete Time: 11:09 [facility] 02/02 11:08 Order name: Cardiac monitoring; Complete Time: 11:22 [facility] 02/02 11:08 Order name: CT Head Brain wo Cont; Complete Time: 12:21 [facility] 02/02 15:15 Order name: Thorax Wo Con EDME 02/02 16:15 Order name: LAB Add On eb 02/02 17:19 Order name: COVID-19 ss 02/02 17:21 Order name: C-Reactive Protein EDME 02/02 17:26 Order name: Glucose, Ancillary Testing EDME 02/02 11:08 Order name: EKG - Nurse/Tech; Complete Time: 11:16 [facility] 02/02 11:08 Order name: IV Saline Lock; Complete Time: 11:22 [facility] 02/02 11:08 Order name: Labs collected and sent; Complete Time: : [facility] 02/02 11:08 Order name: O2 Per Protocol; Complete Time: [facility] 02/02 11:08 Order name: O2 Sat Monitoring; Complete Time: : [facility] 02/02 11:08 Order name: Urine Dipstick-Ancillary (obtain specimen); Complete Time: : [facility] 02/02 12:10 Order name: Zoe; Complete Time: 12:10 tw2 EC:51 Rate is 58 beats/min. Rhythm is regular. QRS Ewing is Normal. PA interval is normal. QRS augusta interval is normal. QT interval is normal. No Q waves. T waves are Normal. No ST changes noted. Clinical impression: Sinus bradycardia. Interpreted by me. Reviewed by me. Administered Medications: Discontinued: D5-1/2 NS 1000 ml IV at 125 ml/hr continuous 11:52 Not Given (Duplicate Order): NS 0.9% 1000 ml IV at 125 ml/hr continuous augusta 11:59 Drug: D50W 50 ml Route: IVP; Site: left antecubital; tw2 13:01 Follow up: Response: No adverse reaction; Blood sugar is elevated tw2 12:02 Drug: D5-1/2 NS 1000 ml Route: IV; Rate: 125 ml/hr; Site: left antecubital; tw2 12:09 Drug: Albuterol 2.5 mg Route: Inhalation; tw2 12:09 Drug: AtroVENT Aerosol 0.5 mg Route: Inhalation; tw2 13:18 Drug: Meropenem 1 grams Route: IV; Rate: per protocol; Site: right femoral; tw2 14:20 Follow up: Response: No adverse reaction; IV Status: Completed infusion tw2 13:56 Drug: D5-1/2 NS with KCl 20 mEq/L 1000 ml Route: IV; Rate: 125 ml/hr; Site: right tw2 femoral; 14:00 Follow up: IV Status: Infusion continued upon admission jl7 Point of Care Testing: Blood Glucose: 11:50 Blood Glucose: 58 mg/dL; tw2 17:16 Blood Glucose: 200 mg/dL; tw2 11:50 provider notified. tw2 Ranges: Critical Glucose Levels:Adult <50 mg/dl or >400 mg/dl <40 mg/dl or >180 mg/dl Disposition: 02/03/20 13:50 Hospitalization ordered by Pako Callahan for Inpatient Admission. Preliminary diagnosis are Hypoglycemia, unspecified, Hypothermia, Dyspnea, Obesity, unspecified, Myasthenia gravis, Elevated white blood cell count. - Bed requested for Intensive Care Unit. - Status is Inpatient Admission. mg2 - Condition is Fair. - Problem is new. - Symptoms have improved. Signatures: Dispatcher [employer] EDLuther Crowder MD MD cha Wise, Tara RN RN tw2 Mook Hargrove RN RN jl7 Cira Hodges Michele, RN RN mg2 Corrections: (The following items were deleted from the chart) 15:50 13:50 Hospitalization Ordered by Pako Callahan MD for Inpatient Admission. Preliminary [facility] diagnosis is Hypoglycemia, unspecified; Hypothermia; Dyspnea; Obesity, unspecified; Myasthenia gravis. Bed requested for Telemetry/MedSurg (Inpatient). Status is Inpatient Admission. Condition is Fair. Problem is new. Symptoms have improved. [facility] 16:06 15:50 02/03/2020 13:50 Hospitalization Ordered by Pako Callahan MD for Inpatient eb Admission. Preliminary diagnosis is Hypoglycemia, unspecified; Hypothermia; Dyspnea; Obesity, unspecified; Myasthenia gravis; Elevated white blood cell count. Bed requested for Telemetry/MedSurg (Inpatient). Status is Inpatient Admission. Condition is Fair. Problem is new. Symptoms have improved. [facility] 16:08 16:06 02/03/2020 13:50 Hospitalization Ordered by Pako Callahan MD for Inpatient eb Admission. Preliminary diagnosis is Hypoglycemia, unspecified; Hypothermia; Dyspnea; Obesity, unspecified; Myasthenia gravis; Elevated white blood cell count. Bed requested for Telemetry/MedSurg (Inpatient). Status is Inpatient Admission. Condition is Fair. Problem is new. Symptoms have improved. eb 21:58 16:08 02/03/2020 13:50 Hospitalization Ordered by Pako Callahan MD for Inpatient mg2 Admission. Preliminary diagnosis is Hypoglycemia, unspecified; Hypothermia; Dyspnea; Obesity, unspecified; Myasthenia gravis; Elevated white blood cell count. Bed requested for Intensive Care Unit. Status is Inpatient Admission. Condition is Fair. Problem is new. Symptoms have improved. eb
[2020-02-03] MEDS ORDERED: D5.45NS W/KCL 20MEQ 1,000 ML IV ONE (14:07)
--- NOTE | 2020-02-03 16:15 | RAD REPORT ---
EXAM DESCRIPTION: CT - [place] [facility] [place] - 02/03/2020 3:53 pm CLINICAL HISTORY: cough COMPARISON: October 2019 TECHNIQUE: Computed axial tomography of the chest was obtained. Contrast was not requested. All CT scans are performed using dose optimization technique as appropriate and may include automated exposure control or mA/KV adjustment according to patient size. FINDINGS: The evaluation of mediastinum, niels and vessels is limited secondary to lack of IV contras t administration. The mediastinal hematoma has resolved. Minimal bilateral pleural effusions Moderate patchy left lower lobe alveolar opacities. Moderate patchy right upper and mild to moderate right lower lobe opacities Mild compression of a subacute fracture involving the T4 vertebral body IMPRESSION: Mild to moderate bilateral patchy alveolar opacities within the lungs probably pneumonia or aspiration pneumonitis
[2020-02-03] MEDS: INSULIN -REGULAR HUMAN 50 UNIT/0.5 ML ML SQ SCH ×2 (16:30→21:51)
--- NOTE | 2020-02-03 16:35 | P.HP ---
Certification for Inpatient Patient admitted to: Inpatient With expected LOS: >2 Midnights Practitioner: I am a practitioner with admitting privileges, knowledge of patient current condition, hospital course, and medical plan of care. Services: Services provided to patient in accordance with Admission requirements found in Title 42 Section 412.3 of the Code of Federal Regulations Patient History Date of Service: 02/03/20 Reason for admission: Hypothermia, hypoglycemia, sepsis History of Present Illness: 75-year-old resident of [facility] was sent to the ED did today and found to have hypoglycemia of 22, fatigue, and generalized weakness. HPI was obtained from patient's . He states patient has been having a cough and generalized weakness for the past week and was otherwise in her usual state of health until today where she was nearly passed out with a low blood sugar. He states she has been having more frequent falls over the past month, progressively becoming more frequent. Approximately 1 month ago she fell and fractured several bones in her C-spine, and she underwent surgical fixation at [facility]. He states there she had a 20+ day stay in the hospital. No recent changes in medications Patient denies fevers, chills, vision changes, chest pain, shortness of breath, abdominal pain, dysuria, change in bowel habits, no new rashes or lesions. In the ED patient was noted to be hypothermic at 93.1, and hypoglycemic. CXR: No acute abnormalities. CT brain: No acute bleed or ischemic changes Vital signs were within normal limits and stable. They are unable to get IV access, so central line was placed in the right femoral vein. She was started on D5 half-normal saline at 125ml/hr, 1 g of meropenem, and a bear hugger was placed on the patient. Enriquez catheter was placed as well Allergies aspirin Allergy (Verified 04/14/19 06:10) Shortness of breath ciprofloxacin [From Cipro] Allergy (Verified 04/14/19 06:10) Anaphylaxis cortisone Allergy (Verified 04/14/19 06:10) Hives/Rash Penicillins Allergy (Verified 04/14/19 06:10) Hives/Rash phenobarbital Allergy (Verified 04/14/19 06:10) Itching/Hives/Rash Home Medications: Acetaminophen [Tylenol] 650 mg PO Q6H PRN 04/14/19 Amlodipine [Norvasc*] 10 mg PO DAILY 04/14/19 Ergocalciferol (Vitamin D2) [Vitamin D 50,000 Unit Cap] 50,000 unit PO SEECOM 04/14/19 Famotidine [Pepcid*] 20 mg PO DAILY 04/14/19 Furosemide [Lasix*] 2 tab PO DAILY 04/14/19 Furosemide [Lasix*] 20 mg PO BEDTIME 04/14/19 Insulin Aspart [Novolog Flexpen] 10 unit SQ TIDWM 04/14/19 Insulin Detemir [Levemir] 25 units SQ BEDTIME 04/14/19 Levothyroxine [Synthroid*] 88 mcg PO [id number] 04/14/19 Melatonin [Melatonin*] 6 mg PO BEDTIME PRN 04/14/19 Potassium Chloride [Micro-K] 10 meq PO TID 04/14/19 Pyridostigmine [place] [Mestinon*] 1 tab PO Q8H 04/14/19 Quetiapine [Seroquel*] 25 mg PO BEDTIME 04/14/19 Rosuvastatin Calcium [Crestor] 20 mg PO BEDTIME 04/14/19 Sertraline HCl 25 mg PO DAILY 04/14/19 predniSONE [Prednisone*] 5 mg PO DAILY 04/14/19 predniSONE [Prednisone*] 20 mg PO DAILY 04/14/19 Doxycycline Monohydrate 100 mg PO BID #20 tablet 04/16/19 Medihoney [Medihoney Woundcare Gel*] 1 appl TOP DAILY #1 tube 04/16/19 Nystatin Powder [Mycostatin (Powder)*] 1 appl TOP BID #1 btl 04/16/19 - Past Medical/Surgical History Diabetic: Yes -: Kidney failure -: Benign neoplasm of cerebral meninges -: HTN -: COPD -: Chronic systolic (congestive)heart failure -: Hypocalcemia -: Pneumonia due to staph -: Severe sepsis w/ septic shock -: resp failure -: spinal stenosis -: myasthenia gravis -: dementia -: Brain surgery x 2 -: section x 3 -: korey -: neck surgery -: carpal tunnel surgery - Family History Mother -: Heart disease Notes: 93y/o , still living Father -: Heart disease Notes: - Social History Smoking Status: Never smoker Alcohol use: No CD- Drugs: No Caffeine use: Yes Review of Systems General: As per HPI Eyes: Unremarkable ENT: Unremarkable Respiratory: Cough, As per HPI Cardiovascular: Unremarkable Gastrointestinal: Unremarkable Genitourinary: Unremarkable Musculoskeletal: Unremarkable Integumentary: Unremarkable Neurological: Weakness, Confusion, As per HPI Physical Examination - Physical Exam General: Alert, Other (Appears cold, shivering) HEENT: Sclerae nonicteric Neck: Supple, No LAD, Without JVD or thyroid abnormality Respiratory: Normal air movement, Crackles/rales (Bilateral bases) Cardiovascular: Regular rate/rhythm, Normal S1 S2 Gastrointestinal: Soft and benign, Non-distended, No tenderness Musculoskeletal: No tenderness Integumentary: No rashes Neurological: Normal speech, Normal affect Urinary: Enriquez catheter - Studies Laboratory Data (last 24 hrs) 02/03/20 12:45: WBC 13.0 H, Hgb 11.3 L, Hct 37.9, Plt Count 112 L 02/03/20 12:45: Sodium 142, Potassium 3.2 L, BUN 14, Creatinine 0.70, Glucose 205 H, Magnesium 2.2, Total Bilirubin 0.4, AST 43 H, ALT 96 H, Alkaline Phosphatase 210 H Assessment and Plan - Advance Directives Does patient have a Living Will: Yes Does patient have a Durable POA for Healthcare: Yes - Code Status/Comfort Care Code Status Assessed: Yes Code Status: Full Code Physician Review Additional Text: Hypothermia Hypoglycemia Chronic systolic CHF COPD Essential hypertension DM2 Myasthenia gravis Dementia, multi infarct vascular dementia Hypothermia Hypoglycemia -concern for possible infection, reports possible aspiration, and patient has been having a cough for the past week -Chest x-ray was clear, will obtain CT chest -will admit to ICU for close monitoring over night -will continue on meropenem to cover for possible aspiration, patient with multiple antibiotic allergies -continue Obed Hugger -continue to monitor glucose -blood cultures obtained in the ED Chronic systolic CHF -will give gentle IV fluid, blood pressure has been okay, hold home Lasix for now COPD -no wheeze on exam Essential hypertension -continue home meds once obtained DM2 -given hypoglycemic, or home insulin, Accu-Cheks, low sliding scale Myasthenia gravis -continue home meds Dementia -seems to be a baseline Time Spent Managing Pts Care (In Minutes): 60
[2020-02-03] MEDS ORDERED: Meropenem 1000 MG/VIAL IV SCH (17:00)
[2020-02-03 20:32] VITALS: BMI 44.4
[2020-02-03] MEDS: Meropenem 1,000 MG in NA CHLORIDE 0.9% 100 ML IV SCH (21:36)
[2020-02-03] MEDS: ENOXAPARIN 40 MG/0.4 ML SQ SCH (21:36)
[2020-02-03] MEDS: NA CHLORIDE 0.9% 1,000 ML IV SCH (21:37)
[2020-02-03] MEDS ORDERED: ENOXAPARIN 40 MG/0.4 ML SQ ONE (21:41)
[2020-02-03] MEDS ORDERED: NA CHLORIDE 0.9% 1,000 ML ONE (21:59)
[2020-02-03] MEDS ORDERED: INSULIN -REGULAR HUMAN 50 UNIT/0.5 ML ML ONE (21:59)
[2020-02-03] MEDS: PYRIDOSTIGMINE 60 MG TABLET PO SCH (23:00)
[2020-02-04] MEDS: Meropenem 1,000 MG in NA CHLORIDE 0.9% 100 ML IV SCH ×3 (00:52→16:29)
[2020-02-04] MEDS: NA CHLORIDE 0.9% 1,000 ML IV SCH ×2 (05:20→18:40)
[2020-02-04 05:27] LABS: Absolute Lymphocytes (CBC) 2.4 K/uL (0.7-4.9); Basophils % 0.9 % (0-1.3); Hematocrit 33.7 % (36.0-45.0); MPV 9.1 fL (7.6-11.3); RBC Red Blood Cell Count 4.16 M/uL (3.86-4.86)
[2020-02-04 06:01] LABS: ALT/SGPT 88 U/L (12-78); AST/SGOT 40 U/L (15-37); Albumin 2.4 g/dL (3.4-5.0); Alkaline Phosphatase 230 U/L (45-117); BUN Blood Urea Nitrogen 8 mg/dL (7-18); Bicarbonate 29 mmol/L (21-32); Bilirubin Total 0.6 mg/dL (0.2-1.0); Glucose Level 125 mg/dL (74-106); Magnesium 1.8 mg/dL (1.8-2.4); Potassium 3.9 mmol/L (3.5-5.1); Protein, Total 5.3 g/dL (6.4-8.2); Sodium Level 142 mmol/L (136-145)
[2020-02-04] MEDS: PYRIDOSTIGMINE 60 MG TABLET PO SCH ×3 (06:33→23:00)
[2020-02-04] MEDS: LEVOTHYROXINE SOD 0.088 MG TAB PO SCH (06:33)
[2020-02-04] MEDS: INSULIN -REGULAR HUMAN 50 UNIT/0.5 ML ML SQ SCH ×4 (07:30→21:00)
[2020-02-04] MEDS ORDERED: MAGNESIUM SULFATE 1 gm IVPB 1 GM/100 ML BAG IV ONE ×2 (08:00→10:25)
--- NOTE | 2020-02-04 08:47 | P.PN ---
Subjective Date of Service: 02/04/20 Chief Complaint: Hypothermia, hypoglycemia, sepsis Patient does not recall events of yesterday, reports not feeling well, continues with cough Otherwise no new complaints Physical Examination - Vital Signs Temperature: 98.7 F Blood Pressure: 140/49 Pulse: 87 Respirations: 25 Pulse Ox (%): 96 - Physical Exam General: Alert, Oriented x2 HEENT: Other (Dry mucous membranes), Sclerae nonicteric Neck: Supple, No LAD Respiratory: Diminished, Crackles/rales (Mild at bilateral bases), Other (diffuse upper airway sounds, cough) Cardiovascular: No edema, Regular rate/rhythm Gastrointestinal: Hypoactive, Soft and benign, Non-distended, No tenderness Musculoskeletal: No tenderness Integumentary: Other (several scattered ecchymosis on lower extremities) Neurological: Normal speech (difficult to understand at times due to mumbling) Urinary: Enriquez catheter - Studies Laboratory Data (last 24 hrs) 02/03/20 12:45: WBC 13.0 H, Hgb 11.3 L, Hct 37.9, Plt Count 112 L 02/03/20 12:45: Sodium 142, Potassium 3.2 L, BUN 14, Creatinine 0.70, Glucose 205 H, Magnesium 2.2, Total Bilirubin 0.4, AST 43 H, ALT 96 H, Alkaline Phosphatase 210 H Assessment & Plan Physician Review Additional Text: Hypothermia Hypoglycemia Aspiration pneumonia Chronic systolic CHF COPD Essential hypertension DM2 Myasthenia gravis Dementia, multi infarct vascular dementia Hypothermia Hypoglycemia Aspiration pneumonia -CT chest: Mild-moderate bilateral patchy opacities, probably pneumonia/aspiration pneumonitis -hypoglycemia and hypothermia - secondary to sepsis in setting of aspiration pneumonia -will continue on meropenem to cover for possible aspiration, patient with multiple antibiotic allergies, vancomycin as well, patient was recently hospitalized for over 3 weeks common currently resides in long term -her temperatures normalized: no longer requiring a faizan hugger -glucose has been stable, no longer hypoglycemic -continue empiric antibiotic therapy, follow up blood cultures obtained in the ED -speech eval today, NPO until then -pulm toilet Chronic systolic CHF -gentle IV fluid, blood pressure has been okay, hold home Lasix for now COPD -no wheeze on exam Essential hypertension -continue home meds DM2 -given hypoglycemic, holding home insulin, Accu-Cheks, low sliding scale Myasthenia gravis -continue home meds Dementia -seems to be at baseline Dispo: empiric Abx, pending cultures, anticipate dc back to SNF in 2-3 days Time Spent Managing Pts Care (In Minutes): 35
[2020-02-04] MEDS: VANCOMYCIN 1.5 GM in NA CHLORIDE 0.9% 500 ML IVPB SCH (09:00)
[2020-02-04] MEDS ORDERED: KCL 20 MEQ/100 mL IVPB 20 MEQ/100 ML BAG IV SCH (09:00)
[2020-02-04] MEDS: predniSONE 20 MG TAB PO SCH (09:45)
[2020-02-04] MEDS: ENOXAPARIN 40 MG/0.4 ML SQ SCH (09:45)
[2020-02-04] MEDS ORDERED: predniSONE 20 MG TAB ONE (09:53)
[2020-02-04] MEDS ORDERED: ENOXAPARIN 40 MG/0.4 ML SQ ONE (09:54)
[2020-02-04] MEDS ORDERED: KCL 20 MEQ/100 mL IVPB 20 MEQ/100 ML BAG IV ONE (09:55)
[2020-02-04] MEDS ORDERED: NA CHLORIDE 0.9% 1,000 ML ONE (11:24)
[2020-02-04] MEDS: ALBUTEROL 2.5 MG/3 ML NEB SOL NEB SCH ×2 (12:58→20:00)
[2020-02-04] MEDS ORDERED: ALBUTEROL 2.5 MG/3 ML NEB SOL ONE ×2 (13:09→20:00)
[2020-02-04] MEDS ORDERED: INSULIN -REGULAR HUMAN 50 UNIT/0.5 ML ML ONE (16:46)
[2020-02-04] MEDS: SERTRALINE HCL 50 MG TAB PO SCH (21:00)
[2020-02-04] MEDS: clonazePAM 0.5 MG TAB PO SCH (21:00)
[2020-02-04] MEDS ORDERED: LORazepam 2 MG/ML VIAL IV ONE (21:22)
[2020-02-05] MEDS: Meropenem 1,000 MG in NA CHLORIDE 0.9% 100 ML IV SCH ×3 (01:00→16:16)
[2020-02-05] MEDS: ALBUTEROL 2.5 MG/3 ML NEB SOL NEB SCH ×4 (02:20→20:00)
[2020-02-05] MEDS ORDERED: ALBUTEROL 2.5 MG/3 ML NEB SOL ONE ×3 (02:21→13:13)
[2020-02-05 05:15] LABS: BUN Blood Urea Nitrogen 7 mg/dL (7-18); Bicarbonate 27 mmol/L (21-32); Glucose Level 145 mg/dL (74-106); Magnesium 1.9 mg/dL (1.8-2.4); Potassium 4.1 mmol/L (3.5-5.1); Sodium Level 141 mmol/L (136-145)
[2020-02-05 05:49] LABS: Absolute Lymphocytes (CBC) 2.5 K/uL (0.7-4.9); Basophils % 0.9 % (0-1.3); Hematocrit 34.1 % (36.0-45.0); Lymphocytes % 15.5 % (15.3-44.8); MPV 9.5 fL (7.6-11.3); RBC Red Blood Cell Count 4.18 M/uL (3.86-4.86)
[2020-02-05] MEDS: LEVOTHYROXINE SOD 0.088 MG TAB PO SCH ×2 (06:00→13:16)
--- NOTE | 2020-02-05 06:55 | EKG ---
Test Date: 2020-02-03 Test Time: 11:10:09 Silk Worker: MELODY MEASUREMENT RESULTS: Intervals: Rate: 58 MN: 170 QRSD: 108 QT: 492 QTc: 482 [place]: P: 63 MN: 170 QRS: 49 T: 17 INTERPRETIVE STATEMENTS: Sinus bradycardia Inferior infarct, age undetermined Cannot rule out Anterior infarct, age undetermined Abnormal ECG Compared to ECG 01/17/2020 16:29:10 Sinus rhythm no longer present Ventricular premature complex(es) no longer present Myocardial infarct finding still present Electronically Signed On 02-05-20 06:53:44 CDT by Jeet Valles
[2020-02-05] MEDS: PYRIDOSTIGMINE 60 MG TABLET PO SCH ×3 (07:00→22:08)
[2020-02-05] MEDS: INSULIN -REGULAR HUMAN 50 UNIT/0.5 ML ML SQ SCH ×4 (07:30→21:32)
[2020-02-05] MEDS: NA CHLORIDE 0.9% 1,000 ML IV SCH ×4 (08:00→21:20)
--- NOTE | 2020-02-05 08:43 | RAD REPORT ---
EXAM DESCRIPTION: Niru Single View02/05/2020 7:14 am CLINICAL HISTORY: Cough COMPARISON: February 03, 2020 FINDINGS: Mild bilateral pulmonary opacities. The heart is borderline enlarged IMPRESSION: No significant change in mild bilateral pulmonary opacities which may represent pneumoni a or aspiration pneumonitis
[2020-02-05] MEDS: predniSONE 20 MG TAB PO SCH ×2 (09:00→13:15)
[2020-02-05] MEDS: clonazePAM 0.5 MG TAB PO SCH ×3 (09:00→21:00)
[2020-02-05] MEDS: VANCOMYCIN 1.5 GM in NA CHLORIDE 0.9% 500 ML IVPB SCH (10:00)
[2020-02-05] MEDS: ENOXAPARIN 40 MG/0.4 ML SQ SCH (10:08)
[2020-02-05] MEDS ORDERED: ENOXAPARIN 40 MG/0.4 ML SQ ONE (10:16)
[2020-02-05] MEDS ORDERED: HYDROCORTISONE SUC 100 MG INJ IV SCH (10:30)
--- NOTE | 2020-02-05 11:14 | P.PN ---
Subjective Date of Service: 02/05/20 Chief Complaint: Hypothermia, hypoglycemia, sepsis Subjective: Improving (Confusion overnight, patient pulled out her femoral line, also pulled out 1 of her IVs this morning Continues with cough, feels tired/weak, breathing comfortably, no pain Patient reportedly did not sleep well overnight, received low-dose Ativan x1 and didn't become sleepy until 5-6 am) Physical Examination - Vital Signs Temperature: 98.5 F Blood Pressure: 116/72 Pulse: 74 Respirations: 20 Pulse Ox (%): 100 - Physical Exam General: In no apparent distress, Oriented x2, Other (Sleepy, but responds to questions) HEENT: EOMI, Sclerae nonicteric Neck: Supple, No LAD Respiratory: Diminished (at bases bilaterally), Other (upper airway noises heard throughout) Cardiovascular: No edema, Regular rate/rhythm, Normal S1 S2 Gastrointestinal: Soft and benign, Non-distended, No tenderness Musculoskeletal: No erythema Integumentary: No rashes Neurological: Dementia Urinary: Enriquez catheter Assessment & Plan Physician Review: Patient Assessed, Agree with Above Assessment and Plan Physician Review Additional Text: Hypothermia Hypoglycemia Aspiration pneumonia Chronic systolic CHF COPD Essential hypertension DM2 Myasthenia gravis Dementia, multi infarct vascular dementia Hypothermia, resolved Hypoglycemia, resolved Aspiration pneumonia -CT chest: Mild-moderate bilateral patchy opacities, probably pneumonia/aspiration pneumonitis -hypoglycemia and hypothermia - secondary to sepsis in setting of aspiration pneumonia; resolved -will continue on meropenem, added Vanc 02/03, pt with recent extended hospitalization -continue empiric antibiotic therapy, follow up blood cultures obtained in the ED, NGTD -still pending speech eval, bedside eval by nurse: seems to do ok with water, but coughs minutes later -RT consulted for pulm toilet, very weak cough -SpO2, vitals ok, does not appear in acute myasthenia crises - reviewed case over phone with Dr. Patricia Myasthenia gravis -continue home meds (pyridostigmine and prednisone), reviewed with Dr. Patricia -do not suspect acute myasthenia crises. pt with good strength, able to resist repetitive strength testing -will continue to monitor closely -would need to be transferred if needs plasmapheresis DM2 -given hypoglycemic, holding home insulin, Accu-Cheks, low sliding scale Chronic systolic CHF -gentle IV fluid while NPO, blood pressure has been okay, hold home Lasix for now COPD -no wheeze on exam Essential hypertension -holding home Norvasc, patient's blood pressure within normal limits Dementia -seems to be at baseline Dispo: empiric Abx, pending cultures, anticipate dc back to SNF in several days Time Spent Managing Pts Care (In Minutes): 40
[2020-02-05] MEDS ORDERED: MELATONIN 3 MG TABLET PO PRN (11:20)
[2020-02-05] MEDS ORDERED: predniSONE 20 MG TAB ONE (13:17)
[2020-02-05] MEDS ORDERED: clonazePAM 0.5 MG TAB ONE (13:17)
[2020-02-05] MEDS: NYSTATIN PWDR 100000 UNIT/GM TOP SCH (21:42)
[2020-02-05] MEDS: SERTRALINE HCL 50 MG TAB PO SCH (21:45)
[2020-02-05] MEDS: GUAIFENESIN 600 MG SA TAB PO SCH (21:46)
[2020-02-06] MEDS: Meropenem 1,000 MG in NA CHLORIDE 0.9% 100 ML IV SCH ×2 (00:31→10:00)
[2020-02-06] MEDS: ALBUTEROL 2.5 MG/3 ML NEB SOL NEB SCH ×4 (01:38→20:05)
[2020-02-06] MEDS: LEVOTHYROXINE SOD 0.088 MG TAB PO SCH (05:06)
[2020-02-06 06:06] LABS: Absolute Lymphocytes (CBC) 1.3 K/uL (0.7-4.9); Hematocrit 34.7 % (36.0-45.0); Lymphocytes % 7.7 % (15.3-44.8); MPV 9.4 fL (7.6-11.3); RBC Red Blood Cell Count 4.29 M/uL (3.86-4.86)
[2020-02-06 06:15] LABS: ALT/SGPT 92 U/L (12-78); AST/SGOT 43 U/L (15-37); Albumin 2.1 g/dL (3.4-5.0); Alkaline Phosphatase 306 U/L (45-117); BUN Blood Urea Nitrogen 10 mg/dL (7-18); Bicarbonate 28 mmol/L (21-32); Bilirubin Total 0.3 mg/dL (0.2-1.0); Glucose Level 161 mg/dL (74-106); Magnesium 2.1 mg/dL (1.8-2.4); Phosphorus 3.2 mg/dL (2.5-4.9); Potassium 4.3 mmol/L (3.5-5.1); Protein, Total 5.5 g/dL (6.4-8.2); Sodium Level 141 mmol/L (136-145)
[2020-02-06] MEDS: PYRIDOSTIGMINE 60 MG TABLET PO SCH ×3 (06:48→22:04)
[2020-02-06] MEDS: INSULIN -REGULAR HUMAN 50 UNIT/0.5 ML ML SQ SCH ×4 (07:30→21:32)
[2020-02-06 08:31] LABS: Blood Morphology Comment NOT SEEN (NOT SEEN); Platelet Estimate ADEQ
--- NOTE | 2020-02-06 09:08 | P.PN ---
Subjective Date of Service: 02/06/20 Chief Complaint: Hypothermia, hypoglycemia, sepsis Subjective: Improving (a little more awake this morning, more calm. Reports feeling hungry reports breathing comfortably, but cough hasn't improved.) Review of Systems 10-point ROS is otherwise unremarkable Physical Examination - Vital Signs Temperature: 97.1 F Blood Pressure: 133/60 Pulse: 80 Respirations: 20 Pulse Ox (%): 100 - Physical Exam General: Alert, In no apparent distress HEENT: Sclerae nonicteric Neck: Supple, No LAD Respiratory: Diminished (at bases), Other (transmitted upper airway sounds heard throughout) Cardiovascular: No edema, Regular rate/rhythm, Normal S1 S2 Gastrointestinal: Soft and benign, Non-distended, No tenderness Musculoskeletal: No erythema, No tenderness Integumentary: No rashes Neurological: Normal affect, Other (normal strength in upper extremities, able to pull me towards her multiple times without fatigue), Abnormal speech (quiet, slightly raspy), Dementia Urinary: Enriquez catheter Assessment & Plan Physician Review: Patient Assessed, Agree with Above Assessment and Plan Physician Review Additional Text: Hypothermia Hypoglycemia Aspiration pneumonia Chronic systolic CHF COPD Essential hypertension DM2 Myasthenia gravis Dementia, multi infarct vascular dementia Hypothermia, resolved Hypoglycemia, resolved Aspiration pneumonia -CT chest: Mild-moderate bilateral patchy opacities, probably pneumonia/aspiration pneumonitis -hypoglycemia and hypothermia - secondary to sepsis in setting of aspiration pneumonia; resolved -will continue on meropenem, added Vanc 02/03, pt with recent extended hospitalization and from [facility] placing her at high risk -continue empiric antibiotic therapy, follow up blood cultures obtained in the ED, NGTD x 24hrs -recheck CRP, slow improvement, may benefit from pulm consult -still pending speech eval, bedside eval by nurse: seems to do ok with water, but coughs minutes later -may need to consider temporary dobhoff for feeds - pt refusing -RT consulted for pulm toilet, very weak cough, lots of wet/gurgles in throat, having difficulty coughing it up. Nebs and mucinex seem to help slightly -SpO2, vitals ok, does not appear in acute myasthenia crises - reviewed case over phone with Dr. Patricia Myasthenia gravis -continue home meds (pyridostigmine and prednisone), reviewed with Dr. Patricia -do not suspect acute myasthenia crises. pt with good strength, able to resist repetitive strength testing -will continue to monitor closely -would need to be transferred if needs plasmapheresis DM2 -given hypoglycemia and NPO, holding home insulin, Accu-Cheks, low sliding scale Chronic systolic CHF -gentle IV fluid while NPO, blood pressure has been okay, hold home Lasix for now -no edema on exam, CXR (02/04) ok COPD -no wheeze on exam Essential hypertension -holding home Norvasc, patient's blood pressure within normal limits Dementia -seems to be at baseline Dispo: empiric Abx, pending cultures, anticipate dc back to SNF in 2-3 days Time Spent Managing Pts Care (In Minutes): 35
[2020-02-06] MEDS: ENOXAPARIN 40 MG/0.4 ML SQ SCH (10:00)
[2020-02-06] MEDS: NA CHLORIDE 0.9% 1,000 ML IV SCH ×2 (10:00→23:06)
[2020-02-06] MEDS: GUAIFENESIN 600 MG SA TAB PO SCH ×2 (10:01→21:00)
[2020-02-06] MEDS: predniSONE 20 MG TAB PO SCH (10:01)
[2020-02-06] MEDS: NYSTATIN PWDR 100000 UNIT/GM TOP SCH ×2 (10:01→21:38)
[2020-02-06] MEDS: clonazePAM 0.5 MG TAB PO SCH ×2 (10:01→21:00)
[2020-02-06] MEDS: VANCOMYCIN 1.5 GM in NA CHLORIDE 0.9% 500 ML IVPB SCH (10:06)
--- NOTE | 2020-02-06 11:50 | P.CNS ---
Date of Consult: 02/06/20 Chief Complaint: Hypothermia, hypoglycemia, sepsis History of Present Illness: Patient is 75 years of age very poor historian was found to be hypoglycemic fatigue and weakness in addition to cough frequent falls also has some fractures patient complaining of shortness of breath history of myasthenia gravis Allergies aspirin Allergy (Verified 04/14/19 06:10) Shortness of breath ciprofloxacin [From Cipro] Allergy (Verified 04/14/19 06:10) Anaphylaxis cortisone Allergy (Verified 04/14/19 06:10) Hives/Rash Penicillins Allergy (Verified 04/14/19 06:10) Hives/Rash phenobarbital Allergy (Verified 04/14/19 06:10) Itching/Hives/Rash Home Medications: Amlodipine [Norvasc*] 10 mg PO DAILY 04/14/19 Ergocalciferol (Vitamin D2) [Vitamin D 50,000 Unit Cap] 50,000 unit PO SEECOM 04/14/19 Furosemide [Lasix*] 20 mg PO DAILY 04/14/19 Insulin Aspart [Novolog Flexpen] 10 unit SQ TIDWM 04/14/19 Insulin Detemir [Levemir] 25 units SQ BEDTIME 04/14/19 Levothyroxine [Synthroid*] 88 mcg PO [id number] 04/14/19 Melatonin [Melatonin*] 6 mg PO BEDTIME PRN 04/14/19 Potassium Chloride [Micro-K] 10 meq PO BID 04/14/19 Pyridostigmine [place] [Mestinon*] 1 tab PO Q8H 04/14/19 Rosuvastatin Calcium [Crestor] 20 mg PO DAILY 04/14/19 Sertraline HCl 25 mg PO BEDTIME 04/14/19 predniSONE [Prednisone*] 20 mg PO DAILY 04/14/19 Nystatin Powder [Mycostatin (Powder)*] 1 appl TOP BID #1 btl 04/16/19 - Past Medical/Surgical History Diabetic: Yes -: Kidney failure -: Benign neoplasm of cerebral meninges -: HTN -: COPD -: Chronic systolic (congestive)heart failure -: Hypocalcemia -: Pneumonia due to staph -: Severe sepsis w/ septic shock -: resp failure -: spinal stenosis -: myasthenia gravis -: dementia -: Brain surgery x 2 -: section x 3 -: korey -: neck surgery -: carpal tunnel surgery - Family History Mother Medical History: Heart disease Notes: 93y/o , still living Father Medical History: Heart disease Notes: - Social History Smoking Status: Unknown if ever smoked Alcohol use: No CD- Drugs: No Caffeine use: No Review of Systems is unable to be obtained Physical Examination Temp Pulse Resp BP Pulse Ox 97.1 F 80 20 133/60 100 02/06/20 09:16 02/06/20 09:16 02/06/20 09:16 02/06/20 09:16 02/06/20 09:16 General: Alert, Cooperative, Moderate distress Respiratory: Crackles/rales, Expiratory wheezes Cardiovascular: No edema, Normal S1 S2 Gastrointestinal: Normal bowel sounds, Soft and benign Musculoskeletal: No clubbing, No swelling Integumentary: No rashes, No breakdown Neurological: Other (Slightly slurred speech) - Problems (1) Acute exacerbation of myasthenia gravis Current Visit: Yes Status: Acute Plan: Patient is 75 years of age admitted with weakness possible exacerbation of myasthenia gravis increase the dose of steroids for now no evidence of sepsis Dc all antibiotics chest x-rays clear CT of the chest is also negative patchy changes at the base mildly elevated CRP white count is mildly elevated Lindsay is is negative of ordered ABGs my seeing a can affect the bulb are muscles and respiratory muscles cultures all negative
[2020-02-06] MEDS: METHYLPREDNISOLONE 125 MG INJ IV SCH ×2 (12:20→21:33)
[2020-02-06 12:55] LABS: Arterial Blood Carboxyhemoglob 1.4 % (0-1.5); Blood Gas Oxyhemoglobin 91.8 % (94-97); Blood O2 Saturation 93.9 % (92-98.5)
[2020-02-06 13:23] LABS: Thyroid Stimulating Hormone 0.362 uIU/mL (0.360-3.740)
[2020-02-06] MEDS: SERTRALINE HCL 50 MG TAB PO SCH (21:00)
[2020-02-06] MEDS: LORazepam 2 MG/ML VIAL IV PRN (22:09)
[2020-02-07] MEDS: ALBUTEROL 2.5 MG/3 ML NEB SOL NEB SCH ×2 (01:45→07:35)
[2020-02-07] MEDS: LORazepam 2 MG/ML VIAL IV PRN (04:20)
[2020-02-07] MEDS: LEVOTHYROXINE SOD 0.088 MG TAB PO SCH (05:17)
[2020-02-07] MEDS: PYRIDOSTIGMINE 60 MG TABLET PO SCH ×3 (06:04→22:03)
[2020-02-07 06:33] LABS: Absolute Lymphocytes (CBC) 0.7 K/uL (0.7-4.9); Basophils % 0.3 % (0-1.3); Hematocrit 35.5 % (36.0-45.0); Lymphocytes % 6.1 % (15.3-44.8); MPV 9.7 fL (7.6-11.3)
[2020-02-07 06:48] LABS: ALT/SGPT 70 U/L (12-78); AST/SGOT 14 U/L (15-37); Albumin 2.5 g/dL (3.4-5.0); Alkaline Phosphatase 310 U/L (45-117); BUN Blood Urea Nitrogen 16 mg/dL (7-18); Bicarbonate 23 mmol/L (21-32); Bilirubin Total 0.5 mg/dL (0.2-1.0); Glucose Level 286 mg/dL (74-106); Magnesium 1.9 mg/dL (1.8-2.4); Potassium 3.9 mmol/L (3.5-5.1); Sodium Level 141 mmol/L (136-145)
[2020-02-07] MEDS: INSULIN -REGULAR HUMAN 50 UNIT/0.5 ML ML SQ SCH ×4 (08:19→21:17)
[2020-02-07] MEDS: METHYLPREDNISOLONE 125 MG INJ IV SCH (08:19)
[2020-02-07] MEDS: ENOXAPARIN 40 MG/0.4 ML SQ SCH (08:20)
[2020-02-07] MEDS: GUAIFENESIN 600 MG SA TAB PO SCH ×2 (08:21→21:19)
[2020-02-07] MEDS: clonazePAM 0.5 MG TAB PO SCH ×2 (08:21→21:19)
[2020-02-07] MEDS: NYSTATIN PWDR 100000 UNIT/GM TOP SCH ×2 (08:22→21:33)
--- NOTE | 2020-02-07 11:55 | P.PN ---
Subjective Date of Service: 02/07/20 Chief Complaint: Weakness Subjective: Improving (Patient is improving arousable) Review of Systems General: Weakness Respiratory: Shortness of Breath Physical Examination - Vital Signs Temperature: 96.7 F Blood Pressure: 111/46 Pulse: 81 Respirations: 16 Pulse Ox (%): 98 - Physical Exam General: Alert, Oriented x3, Mild distress Respiratory: Clear to auscultation bilaterally, Friction rub Cardiovascular: Regular rate/rhythm Assessment & Plan - Problems (Diagnosis) (1) Acute exacerbation of myasthenia gravis Current Visit: Yes Status: Acute Plan: Plan to Dc Enriquez catheter continue with steroids weight neurology evaluation physical therapy mildly hypoxic CO2 is in the upper range of normal she probably has some respiratory compromise hypoglycemia resolved awaiting speech therapy if physical therapy order Physician Review: Patient Assessed, Agree with Above Assessment and Plan
[2020-02-07] MEDS ORDERED: ALBUTEROL 2.5 MG/3 ML NEB SOL NEB PRN (11:59)
--- NOTE | 2020-02-07 12:26 | P.PN ---
Subjective Date of Service: 02/07/20 Chief Complaint: Weakness Patient is kept NPO given concern for aspiration. Speech therapy evaluation is pending. Patient has no other complain. She denies shortness of breath. She is coughing occasionally. Physical Examination - Vital Signs Temperature: 96.7 F Blood Pressure: 111/46 Pulse: 81 Respirations: 16 Pulse Ox (%): 98 - Physical Exam General: Alert, In no apparent distress, Oriented x3 HEENT: Mucous membr. moist/pink Neck: Supple Respiratory: Clear to auscultation bilaterally, Normal air movement Cardiovascular: No edema, Regular rate/rhythm, Normal S1 S2 Gastrointestinal: Normal bowel sounds, Soft and benign, Non-distended, No tenderness Musculoskeletal: No swelling Integumentary: No rashes Neurological: Normal strength at 5/5 x4 extr Assessment And Plan Physician Review: Patient Assessed, Agree with Above Assessment and Plan Physician Review Additional Text: Hypothermia Hypoglycemia Aspiration pneumonia Chronic systolic CHF COPD Essential hypertension DM2 Myasthenia gravis Dementia, multi infarct vascular dementia Hypothermia, resolved Hypoglycemia, resolved Aspiration pneumonia -CT chest: Mild-moderate bilateral patchy opacities, probably pneumonia/aspiration pneumonitis -hypoglycemia and hypothermia - secondary to sepsis in setting of aspiration pneumonia; resolved -antibiotics discontinued by pulmonary. -leukocytosis is trending down. -will consider oral Augmentin once feeding is resumed. -neurology consult to evaluate myasthenia gravis is pending. Myasthenia gravis -continue home meds (pyridostigmine and prednisone), reviewed with Dr. Patricia -Acute myasthenia crises highly unlikely. -will continue to monitor closely -resume feeding after speech evaluation. -PT and OT eval. DM2 -Accu-Cheks, low sliding scale Chronic systolic CHF -gentle IV fluid while NPO,. -hold Lasix as patient appeared a bit dry -no edema on exam, CXR (02/04) ok COPD -stable without acute exacerbation. Essential hypertension -holding home Norvasc, patient's blood pressure within normal limits Dementia -seems to be at baseline Cervical spine fracture: Occurred about 10 weeks ago. I am told patient is supposed to wear a neck brace. Awaiting spouse to bring neck brace for patient to wear.
[2020-02-07] MEDS: NA CHLORIDE 0.9% 1,000 ML IV SCH (14:30)
[2020-02-07] MEDS: THIAMINE HCL 100 MG TABLET PO SCH (14:30)
--- NOTE | 2020-02-07 16:24 | RAD REPORT ---
EXAM DESCRIPTION: RAD - Barium Swallow Modified - 02/07/2020 3:29 pm CLINICAL HISTORY: failed swallow Respiratory complications/PNA Other- myasthenia gravis COMPARISON: None. TECHNIQUE: The patient was given liquid, semi-solid and solid forms of barium. Lateral view fluorosc opic imaging was performed in conjunction with speech pathology service. FINDINGS: Cineloop acquisitions: 33 Fluoro time: 5 minutes 46 seconds ; 46.01 mGy cumulative dose Laryngeal penetration: not cleared Aspiration: cough w/ thin (large cup sip) Pharyngeal residue: vallecular -mild all consistencies Severely limited -hyolaryngeal elevation , required 2nd dry swallow to clear -delayed swallow onset (1 sec) -decreased vocal fold closure -barium tablet got held up in upper esophagus anterior to spinal hardware. req, liquid wash to clear IMPRESSION: Modified barium swallow as summarized above and fully detailed on speech pathology repor deep
[2020-02-07] MEDS: SERTRALINE HCL 50 MG TAB PO SCH (21:19)
[2020-02-07] MEDS: METHYLPREDNISOLONE 40 MG INJ IV SCH (21:19)
--- NOTE | 2020-02-07 22:46 | CON ---
Reason For Consultation: Consultation called because of myasthenia gravis, for which I have followed the patient in the clinic. She is now admitted to [facility] with aspiration pneumonia. History Of Present Illness: Ms. Lange is a 75-year-old right-handed patient resident of [facility], who was admitted to [facility] on 02/03/2020, with severe hypoglycemia of 22, gener alized weakness of at least 2-3 weeks duration, and fatigue. Her provided information. She had a cervical surgical procedure about 1 month ago and these symptoms began about a week later. She had progressive difficulty getting words out due to poor speech production with hypophonic voice and some difficulty swallowing with some coughing. The surgery actually followed an incident after she fell and fractured several bones in her cervical spine and it required cervical fixation with damian and screw placement. She spent about 20 days at [facility] before being discharged for [facility]. Prior to current hospitalization, she had no recent fevers or chills, na usea, vomiting, rash, headache, or psychiatric issues. At [facility], her head CT scan show ed no acute ischemic or hemorrhagic change. Her chest x-ray and CT scan of the chest were consistent with a moderate bilateral patchy alveolar opacities suggestive of pneumonia versus aspiration pneumo nitis. She was admitted with hospitalist with management and treated for the infection. Regarding h er myasthenia gravis, she has been stable, steadily managed on Mestinon 60 mg every 8 hours and predn isone 20 mg daily. Since hospitalization, she has been on Lovenox for DVT prophylaxis and continued her Synthroid for hypothyroidism. She had a modified barium swallow study today which showed aspirat ion of multiple consistencies requiring her to be placed on a mechanical soft diet with honey thicken ed liquids. Past Medical History: As indicated in addition to chronic kidney failure, benign meningeal neoplasm, hypertension, COPD, systolic congestive heart failure, hypocalcemia, history of sepsis with septic s hock with respiratory failure, spinal stenosis, myasthenia gravis, mild dementia. Past Surgical History: She has had neck surgery as indicated, brain surgery twice, carpal tunnel jamar vaishali, and cholecystectomy along with 3 times. Family History: Positive for heart disease in her mother who is 93 years old, alive, and heart disea se in a father who is . Home Medications: Tylenol 650 mg every 6 hours, Norvasc 10 mg daily, vitamin D3 50,000 international units weekly, Pepcid 20 mg daily, Lasix 20 mg at bedtime, NovoLog FlexPen 10 units subcutaneously 3 times daily, and Levemir 25 units at bedtime, Synthroid 88 mcg daily, melatonin 6 mg at bedtime, pota ssium supplements 10 mEq 3 times daily, Mestinon 60 mg every 8 hours, Seroquel 25 mg at bedtime, Ashok tor 20 mg at bedtime, sertraline 5 mg daily, prednisone 20 mg daily, MediHoney for wound care on neck apply as directed, and Mycostatin powder apply twice a day as directed. Social History: No alcohol, tobacco, or IV drug use. She is in Skilled at this point prior to comin g to the hospital. Review of Systems: As indicated diffuse weakness, some cough, difficulty swallowing, neck pain status post surgery, and debility in terms of weakness of arms and legs. Otherwise, no cardiovascular or genitourinary or gas trointestinal active issues. No dermatological issues. Physical Examination: Vital Signs: Blood pressure 119/57, pulse of 82, respiratory rate 14, temperature 96.8, oxygen satur ation 98%. She is 219 pounds, 4 feet 11 inches. General: Ms. Lange is resting in bed. She is somewhat sedated, but easily aroused, and follows i nstructions appropriately. She is normocephalic, atraumatic. Sclerae are anicteric. Oropharynx is moist and pink. Neck: Supple. She does have significant bruising in the right arm and leg where IV is in place. No significant edema or cyanosis of the lower extremities. Abdomen: Soft. Neurological: She is alert and oriented to situation, person, and place. Follows instructions with some encouragement. Cranial nerve examination showed poor labial, lingual, and guttural sounds. Oth erwise, she does not have any obvious ptosis when lying in bed. No obvious facial weakness or asymme tries. Motor examination: She did hold the right deltoid up and had 10 repetitions without signific ant weakness noted, and in her legs, she is able to lift both off the bed without any difficulty. Sh e does have a stocking-glove loss to light touch temperature. Reflexes depressed in upper and lower extremities. Coordination is slow but intact in the upper and lower extremities. She is not ambulat ed, will be ambulated with physical therapy. Laboratory Studies: Complete blood count with differential shows an improved white blood cell count of 12.0, down from 18.4 three days ago and neutrophils now at 92.8, hemoglobin 10.6. Chemistries-sod ium 142, potassium 3.2, chloride 106, carbon dioxide 30, BUN 14, creatinine 0.7, glucose now 205. La ctic acid 1.5. Procalcitonin 0.05. AST 43, ALT 96, alkaline phosphatase 210. She has a vancomycin trough and she is COVID-19 negative. Assessment: Ms. Lange is a 75-year-old patient with multiple medical problems as detailed above. She is followed in my clinic for myasthenia gravis that is stable on Mestinon and prednisone. She h ad recent cervical surgery after a fall with multiple cervical vertebral fractures. The repo rts that "screws are loose in the back of her neck." She does have significant dysphagia and dysarth aida and has aspiration pneumonia. Plan: 1.Continue with antibiotics as per primary team. 2.Continue Mestinon as indicated. 3.Continue steroids as indicated. 4.She will require re-evaluation by the surgical team at [facility] to assess suni brewer for any unexpected findings. At this point, no aggressive management required for myasthenia gravi s, as she is stable. 5.She should be on the diet as prescribed by Speech Therapy given her significant risk of aspiration and ongoing aspiration pneumonia. DANIKA/MODL Voice ID: [id number] Report ID: [id number]
[2020-02-08] MEDS: NA CHLORIDE 0.9% 1,000 ML IV SCH ×2 (02:40→17:03)
[2020-02-08] MEDS: LEVOTHYROXINE SOD 0.088 MG TAB PO SCH (06:00)
[2020-02-08] MEDS: PYRIDOSTIGMINE 60 MG TABLET PO SCH ×2 (06:05→17:03)
[2020-02-08 06:29] LABS: Absolute Lymphocytes (CBC) 0.6 K/uL (0.7-4.9); Basophils % 0.1 % (0-1.3); Hematocrit 39.3 % (36.0-45.0); Lymphocytes % 4.2 % (15.3-44.8); MPV 9.8 fL (7.6-11.3); RBC Red Blood Cell Count 4.88 M/uL (3.86-4.86)
[2020-02-08] MEDS: GUAIFENESIN 600 MG SA TAB PO SCH ×2 (08:50→21:57)
[2020-02-08] MEDS: ENOXAPARIN 40 MG/0.4 ML SQ SCH (08:50)
[2020-02-08] MEDS: METHYLPREDNISOLONE 40 MG INJ IV SCH ×2 (08:51→21:56)
[2020-02-08] MEDS: clonazePAM 0.5 MG TAB PO SCH ×2 (08:51→21:00)
[2020-02-08] MEDS: THIAMINE HCL 100 MG TABLET PO SCH (08:51)
[2020-02-08] MEDS: INSULIN -REGULAR HUMAN 50 UNIT/0.5 ML ML SQ SCH ×4 (09:00→21:00)
--- NOTE | 2020-02-08 11:45 | P.PN ---
Subjective Date of Service: 02/08/20 Chief Complaint: Weakness Patient noted to have dysphagia and placed on dysphagia diet. She is coughing occasionally. She denies shortness of breath. Physical Examination - Vital Signs Temperature: 97.6 F Blood Pressure: 141/71 Pulse: 68 Respirations: 18 Pulse Ox (%): 99 - Physical Exam General: Other (Awake,) HEENT: Mucous membr. moist/pink Neck: Supple Respiratory: Clear to auscultation bilaterally, Normal air movement Cardiovascular: No edema, Regular rate/rhythm, Normal S1 S2 Gastrointestinal: Normal bowel sounds, Soft and benign, Non-distended, No tenderness Musculoskeletal: No swelling Integumentary: Other (Multiple scattered bruises on upper extremities.) Neurological: Normal strength at 5/5 x4 extr, Cranial nerves 3-12 intact Assessment And Plan Physician Review: Patient Assessed, Agree with Above Assessment and Plan Physician Review Additional Text: Hypothermia Hypoglycemia Aspiration pneumonia Chronic systolic CHF COPD Essential hypertension DM2 Myasthenia gravis Dementia, multi infarct vascular dementia Hypothermia, resolved Hypoglycemia, resolved Aspiration pneumonia -Will start oral levaquin and flagyl. -on dysphagia diet. Myasthenia gravis -continue home meds (pyridostigmine and prednisone) -Acute myasthenia crises highly unlikely. -will continue to monitor closely -PT and OT eval. DM2 -Accu-Cheks, low sliding scale Chronic systolic CHF -resume oral Lasix at a reduced dose. -no edema on exam, CXR (02/04) ok COPD -stable without acute exacerbation. Essential hypertension -resume Norvasc. Dementia -seems to be at baseline Cervical spine fracture: Occurred about 10 weeks ago. I am told patient is supposed to wear a neck brace. Awaiting spouse to bring neck brace for patient to wear.
[2020-02-08] MEDS: INSULIN LISPRO 100 UNIT/1 ML SQ SCH ×2 (12:11→17:10)
[2020-02-08] MEDS: NYSTATIN PWDR 100000 UNIT/GM TOP SCH ×2 (12:12→21:58)
[2020-02-08] MEDS ORDERED: HOME MED 1 EA UNK (Insulin Detemir [Levemir] 25 UNITS) SQ SCH (21:00)
[2020-02-08] MEDS: SERTRALINE HCL 50 MG TAB PO SCH (21:56)
[2020-02-08] MEDS: CEFUROXIME 250 MG TAB PO SCH (21:56)
[2020-02-08] MEDS: INSULIN GLARGINE 100 UNITS/ML SQ SCH (21:57)
[2020-02-09] MEDS: PYRIDOSTIGMINE 60 MG TABLET PO SCH ×4 (00:46→23:06)
[2020-02-09 05:55] LABS: BUN Blood Urea Nitrogen 31 mg/dL (7-18); Bicarbonate 27 mmol/L (21-32); Glucose Level 223 mg/dL (74-106); Potassium 4.5 mmol/L (3.5-5.1); Sodium Level 146 mmol/L (136-145)
[2020-02-09] MEDS: LEVOTHYROXINE SOD 0.088 MG TAB PO SCH (06:40)
[2020-02-09] MEDS: NA CHLORIDE 0.9% 1,000 ML IV SCH ×2 (06:49→18:28)
[2020-02-09 07:36] LABS: Absolute Lymphocytes (CBC) 0.7 K/uL (0.7-4.9); Hematocrit 37.5 % (36.0-45.0); Lymphocytes % 4.8 % (15.3-44.8); MPV 9.5 fL (7.6-11.3); RBC Red Blood Cell Count 4.66 M/uL (3.86-4.86)
[2020-02-09] MEDS: INSULIN -REGULAR HUMAN 50 UNIT/0.5 ML ML SQ SCH ×4 (08:19→21:34)
[2020-02-09] MEDS: ENOXAPARIN 40 MG/0.4 ML SQ SCH (08:19)
[2020-02-09] MEDS: AMLODIPINE 10 MG TAB PO SCH (08:21)
[2020-02-09] MEDS: INSULIN LISPRO 100 UNIT/1 ML SQ SCH ×3 (08:22→17:01)
[2020-02-09] MEDS: ROSUVASTATIN 10 MG TAB PO SCH (08:22)
[2020-02-09] MEDS: clonazePAM 0.5 MG TAB PO SCH ×2 (08:23→21:34)
[2020-02-09] MEDS: THIAMINE HCL 100 MG TABLET PO SCH (08:23)
[2020-02-09] MEDS: CEFUROXIME 250 MG TAB PO SCH ×2 (08:23→21:34)
[2020-02-09] MEDS: GUAIFENESIN 600 MG SA TAB PO SCH ×2 (08:23→21:34)
[2020-02-09] MEDS: METHYLPREDNISOLONE 40 MG INJ IV SCH ×2 (08:24→21:34)
[2020-02-09] MEDS: NYSTATIN PWDR 100000 UNIT/GM TOP SCH ×2 (08:25→21:36)
--- NOTE | 2020-02-09 10:59 | P.DS ---
Admission Date: 02/03/20 Discharge Date: 02/10/20 Disposition: DC HOME/HOME HEALTH CARE Discharge Condition: FAIR Reason for Admission: Weakness Consultations: Neurology: Dr. Patricia Brief History of Present Illness: 75-year-old woman with a history of myasthenia gravis, history of multiple falls was brought to the emergency department due to generalize weakness secondary to hypoglycemia. The patient was hypoglycemic in the ED and was also hypothermic. Chest x-ray in the ED showed no acute abnormality. Patient was admitted for further management. Hospital Course: She was admitted to the medical floor. CT chest reported patchy infiltrates concerning for aspiration pneumonitis. Patient was started on antibiotic therapy. There was concern patient may be having myasthenia gravis crisis. Neurology was consulted, patient was seen by Dr. Patricia who recommended to continue her home dose pyridostigmine. She was also placed on IV steroids for possible COPD exacerbation. Swallow studies was done which demonstrated oropharyngeal dysphagia. Patient diet was modified to soft and mechanical chopped diet and thin liquids. She was also seen by pulmonary-Dr. Sparks and patient was treated for COPD exacerbation. Her Lantus insulin was held briefly due to hypoglycemia on presentation. Her blood sugar improved, patient became hyperglycemia. Her long acting insulin was resumed at home dose of 25 units at bedtime which kept her blood sugar between 100-200. Her premeal insulin was also resumed. Patient was not hypoglycemic with her insulin regimen. Patient d eclined skilled rehab placement. She is discharged to home to continue home health with physical therapy per her request. Vital Signs/Physical Exam: Temp Pulse Resp BP Pulse Ox 97.3 F 76 20 139/71 99 02/09/20 08:00 02/09/20 08:21 02/09/20 08:00 02/09/20 08:21 02/09/20 08:00 General: Alert, In no apparent distress HEENT: Mucous membr. moist/pink Neck: Supple Respiratory: Crackles/rales (Mild bibasilar crackles.) Cardiovascular: No edema, Regular rate/rhythm, Normal S1 S2 Gastrointestinal: Normal bowel sounds, Soft and benign, No tenderness Musculoskeletal: No swelling Neurological: Other (Nonfocal, Stuttering speech.) Laboratory Data at Discharge: WBC 14.7 K/uL (4.3-10.9) H 02/09/20 06:55 Hgb 11.5 g/dL (12.0-15.0) L 02/09/20 06:55 Hct 37.5 % (36.0-45.0) 02/09/20 06:55 Plt Count 200 K/uL (152-406) 02/09/20 06:55 Sodium 146 mmol/L (136-145) H 02/09/20 05:16 Potassium 4.5 mmol/L (3.5-5.1) 02/09/20 05:16 BUN 31 mg/dL (7-18) H 02/09/20 05:16 Creatinine 0.61 mg/dL (0.55-1.3) 02/09/20 05:16 Glucose 223 mg/dL (74-106) H 02/09/20 05:16 Phosphorus 3.2 mg/dL (2.5-4.9) 02/06/20 05:37 Magnesium 1.9 mg/dL (1.8-2.4) 02/07/20 06:14 Total Bilirubin 0.5 mg/dL (0.2-1.0) 02/07/20 06:14 AST 14 U/L (15-37) L 02/07/20 06:14 ALT 70 U/L (12-78) 02/07/20 06:14 Alkaline Phosphatase 310 U/L (45-117) H 02/07/20 06:14 Home Medications: Amlodipine [Norvasc*] 10 mg PO DAILY 04/14/19 Ergocalciferol (Vitamin D2) [Vitamin D 50,000 Unit Cap] 50,000 unit PO SEECOM 04/14/19 Furosemide [Lasix*] 20 mg PO DAILY 04/14/19 Insulin Aspart [Novolog Flexpen] 10 unit SQ TIDWM 04/14/19 Insulin Detemir [Levemir] 25 units SQ BEDTIME 04/14/19 Levothyroxine [Synthroid*] 88 mcg PO [id number] 04/14/19 Melatonin [Melatonin*] 6 mg PO BEDTIME PRN 04/14/19 Potassium Chloride [Micro-K] 10 meq PO BID 04/14/19 Pyridostigmine Rulo [Mestinon*] 1 tab PO Q8H 04/14/19 Rosuvastatin Calcium [Crestor] 20 mg PO DAILY 04/14/19 Sertraline HCl 25 mg PO BEDTIME 04/14/19 predniSONE [Prednisone*] 20 mg PO DAILY 04/14/19 Nystatin Powder [Mycostatin (Powder)*] 1 appl TOP BID #1 btl 04/16/19 Cefuroxime [Ceftin*] 250 mg PO BID #18 tab 02/09/20 Thiamine HCl [Vitamin B-1*] 200 mg PO DAILY #30 tablet 02/09/20 clindamycin HCL [Cleocin HCl *] 300 mg PO Q6HR #20 cap 02/09/20 clonazePAM [Klonopin*] 0.5 mg PO BID #60 tab 02/10/20 New Medications: clindamycin HCL [Cleocin HCl *] 300 mg PO Q6HR #20 cap Cefuroxime [Ceftin*] 250 mg PO BID #18 tab clonazePAM [Klonopin*] 0.5 mg PO BID #60 tab Thiamine HCl [Vitamin B-1*] 200 mg PO DAILY #30 tablet Diet: ADA Activity: Fall precautions Time spent managing pt's care (in minutes): 45
--- NOTE | 2020-02-09 17:59 | P.PN ---
Subjective Date of Service: 02/09/20 Chief Complaint: Weakness Patient seen eating independently. She worked with physical therapy. She stood up with PT. She is coughing occasionally. Physical Examination - Vital Signs Temperature: 97.2 F Blood Pressure: 146/67 Pulse: 80 Respirations: 20 Pulse Ox (%): 94 - Physical Exam General: In no apparent distress Neck: Supple Respiratory: Diminished, Crackles/rales (Mild bibasilar crackles) Cardiovascular: No edema, Regular rate/rhythm, Normal S1 S2 Gastrointestinal: Normal bowel sounds, Soft and benign, No tenderness Musculoskeletal: No swelling Neurological: Normal strength at 5/5 x4 extr - Studies Microbiology Data (last 24 hrs): 02/03/20 13:00 Blood - Blood Aerobic Blood Culture - Final No growth in 5 days. 02/03/20 13:00 Blood - Blood Anaerobic Blood Culture - Final No growth in 5 days. Assessment And Plan Physician Review: Patient Assessed, Agree with Above Assessment and Plan Physician Review Additional Text: Hypothermia Hypoglycemia Aspiration pneumonia Chronic systolic CHF COPD Essential hypertension DM2 Myasthenia gravis Dementia, multi infarct vascular dementia Hypothermia, resolved Hypoglycemia, resolved Aspiration pneumonia -continue clindamycin and Cefuroxime -on dysphagia diet. Myasthenia gravis -continue home meds (pyridostigmine and prednisone) -Acute myasthenia crises highly unlikely. -continue PT. DM2 -Accu-Cheks, low sliding scale -resumed Lantus insulin. Chronic systolic CHF -oral Lasix resumed. -no edema on exam, CXR (02/04) ok COPD -stable without acute exacerbation. Essential hypertension -resumed Norvasc. Dementia -seems to be at baseline Cervical spine fracture: Occurred about 10 weeks ago. Patient to continue wearing the neck brace as inpatient.
[2020-02-09] MEDS: SERTRALINE HCL 50 MG TAB PO SCH (21:34)
[2020-02-09] MEDS: INSULIN GLARGINE 100 UNITS/ML SQ SCH (21:35)
[2020-02-10] MEDS: NA CHLORIDE 0.9% 1,000 ML IV SCH (06:05)
[2020-02-10] MEDS: PYRIDOSTIGMINE 60 MG TABLET PO SCH ×2 (06:05→15:29)
[2020-02-10] MEDS: LEVOTHYROXINE SOD 0.088 MG TAB PO SCH (06:06)
[2020-02-10 06:26] LABS: Absolute Lymphocytes (CBC) 0.5 K/uL (0.7-4.9); Basophils % 0.3 % (0-1.3); Hematocrit 41.8 % (36.0-45.0); Lymphocytes % 3.1 % (15.3-44.8); RBC Red Blood Cell Count 5.27 M/uL (3.86-4.86)
[2020-02-10 06:38] LABS: BUN Blood Urea Nitrogen 26 mg/dL (7-18); Bicarbonate 31 mmol/L (21-32); Glucose Level 244 mg/dL (74-106); Potassium 3.8 mmol/L (3.5-5.1); Sodium Level 142 mmol/L (136-145)
[2020-02-10] MEDS: ROSUVASTATIN 10 MG TAB PO SCH (07:56)
[2020-02-10] MEDS: clonazePAM 0.5 MG TAB PO SCH (07:56)
[2020-02-10] MEDS: CEFUROXIME 250 MG TAB PO SCH (07:56)
[2020-02-10] MEDS: METHYLPREDNISOLONE 40 MG INJ IV SCH (07:58)
[2020-02-10] MEDS: AMLODIPINE 10 MG TAB PO SCH (07:59)
[2020-02-10] MEDS: GUAIFENESIN 600 MG SA TAB PO SCH (07:59)
[2020-02-10] MEDS: THIAMINE HCL 100 MG TABLET PO SCH (07:59)
[2020-02-10] MEDS: NYSTATIN PWDR 100000 UNIT/GM TOP SCH (07:59)
[2020-02-10] MEDS: ENOXAPARIN 40 MG/0.4 ML SQ SCH (07:59)
[2020-02-10] MEDS: INSULIN LISPRO 100 UNIT/1 ML SQ SCH ×3 (07:59→16:27)
[2020-02-10] MEDS: INSULIN -REGULAR HUMAN 50 UNIT/0.5 ML ML SQ SCH ×3 (08:00→16:06)
[2020-02-10] MEDS ORDERED: POTASSIUM 25 MEQ EFFERV TAB PO ONE (09:00)
[2020-02-10 09:28] LABS: Anisocytosis 1+; Blood Morphology Comment NOTED (NOT SEEN); Platelet Estimate ADEQ; Platelets, Giant FEW PRESENT; White Blood Cell Scan OK (OK)
[2020-02-10 09:42] VITALS: O2SAT 97
--- NOTE | 2020-02-10 15:43 | PN ---
Subjective: Ms. Lange is resting in bed. She is in no acute distress. She is somewhat sleepy, b ut easily arousable and answers questions appropriately. She has no new complaints. Objective: Vital signs: Blood pressure 135/63, pulse 78, respiratory rate 18, temperature 97.3, oxy gen saturation 100% on room air. Laboratory Studies: White blood cell count 14.4 today, yesterday 14.7, neutrophils today 93, yesterd ay at 92.4. She is on multiple antibiotics for bilateral pneumonia, but she has had no growth in blood cultures f or more than 5 days. She has both aerobic and anaerobic cultures. She is managed stably for myasthe davey gravis with Mestinon 60 mg every 8 hours. It should be noted her antibiotics are Cleocin and Cef tin. She is on Lantus insulin 25 units at bedtime and Humalog 10 units 3 times daily. Assessment: Ms. Lange is a 75-year-old patient with bilateral pneumonia, stable myasthenia gravis . She has had cervical surgery and aphasia. She is being seen by speech pathology and review of the notes suggest that she has some improvement in her swallowing and is able to tolerate sips of water without overt aspiration and there is a plan to potentially upgrade to thin liquids. The patient cherry s take bites of mechanical soft veggies and meat and no overt aspiration. Plan: 1.Continue with current regimen of myasthenia gravis treatment. 2.Continue with antibiotics per primary team. 3.Continue with speech pathology counseling and advancement of diet as appropriate. 4.She will likely require re-evaluation by the surgeons to evaluate her neck as her did report there are "loose screws" in her neck after surgery. DANIKA/MASSIEL Voice ID: [id number] Report ID: [id number]
[2020-02-10 17:27] VITALS: BP 138/71; TEMP 96.5
== END 2020-02-10 19:53 | disposition home health service (06) | DRG 871 ==
LOC: ER 10:30 → ERHOLD 15:14 → 2ND 02-05 15:40
PROVIDERS: ADMIT Hospitalist; ATTEND Internal Medicine
PROC: 06HY33Z Insertion of Infusion Device into Lower Vein, Percutaneous Approach (ICD-10-PCS; principal; 2020-02-03)
DX: A41.9 Sepsis, unspecified organism (principal); J69.0 Pneumonitis due to inhalation of food and vomit; G70.01 Myasthenia gravis with (acute) exacerbation; I50.22 Chronic systolic (congestive) heart failure; I13.0 Hypertensive heart and chronic kidney disease with heart failure and stage 1 through stage 4 chronic kidney disease, or unspecified chronic kidney disease; J44.1 Chronic obstructive pulmonary disease with (acute) exacerbation; F01.50 Vascular dementia, unspecified severity, without behavioral disturbance, psychotic disturbance, mood disturbance, and anxiety; E11.65 Type 2 diabetes mellitus with hyperglycemia; N18.9 Chronic kidney disease, unspecified; E11.649 Type 2 diabetes mellitus with hypoglycemia without coma; T68.XXXA Hypothermia, initial encounter; S12.9XXD Fracture of neck, unspecified, subsequent encounter; Z88.1 Allergy status to other antibiotic agents; Z88.0 Allergy status to penicillin; Z88.8 Allergy status to other drugs, medicaments and biological substances; Z79.4 Long term (current) use of insulin; Z79.52 Long term (current) use of systemic steroids; Z79.899 Other long term (current) drug therapy; Z90.49 Acquired absence of other specified parts of digestive tract; Z20.828 Contact with and (suspected) exposure to other viral communicable diseases; Z53.29 Procedure and treatment not carried out because of patient's decision for other reasons
CPT/HCPCS: 36415; 70450; 71045; 71250; 74230; 80048; 80053; 80076; 81003; 82805; 82947; 83605; 83735; 84100; 84145; 84439; 84443; 84484; 85025; 85652; 86140; 87040; 92526; 92611; 93005; 94640; 96365; 96375; 97110; 97112; 97116; 97161; 97530; 99285; J1650; J1815; J2185; J2920; J2930; J3370; J3475; J3480; J7030; J7040; J7512; J7799; U0003

== ENCOUNTER 2020-02-11 11:39 | Emergency (ER) | payer OTHER ==
--- OUTSIDE RECORDS SUMMARY | 2020-02-11 11:41 | XMS REPORT | Clinical Summary ---
:1945 Author Organization [facility] Address [address] [place] [address] Care Team Providers Name Role Phone Ayush [...] Not on file Results Not on fileafter 02/10/2019 Insurance Payer Benefit Plan / Subscriber ID Type Phone Address Group [employer] - MEDICARE [employer] MEDICARE O xxxxxxxx [address] [place] [place] [address] Advance Directives For more information, please contact:[address] [phone] Code Status Date Activated Date Inactivated Comments Full Code 02/13/2014 10:17 AM 02/13/2014 6:26 PM This code status was determined by: Patient
--- OUTSIDE RECORDS SUMMARY | 2020-02-11 11:42 | XMS REPORT | Summary of Care ---
:1945 Author Name NOELLE Still Address [address] [facility] [place] [address] Care Team Providers Name Role Phone NOELLE Still Unavailable Unavailable BRAD Still Unavailable Lou RUIZ MD Unavailable Unavailable NOELLE DANG Unavailable Unavailable Unavailable Unavailable Unavailable Functional Status Name Dates Details Functional status health issues are not documented Status: Name Dates Details Cognitive status health issues are not documented Status: Problems Name Dates Details Increased Pressure Hydrocephalus (331.3) Status: Active Myasthenia gravis in crisis (358.01, G70.01) Status: Active Myasthenia gravis (358.00, G70.00) Statu s: Active Osteoporosis (733.00, M81.0) Status: Act kimberly Osteopenia (733.90, M85.80) Status: Acti ve Pneumonia (486, J18.9) Status: Active Depression (311, F32.9) Status: Active Arthritis (716.90, M19.90) Status: Activ e Back pain (724.5, M54.9) Status: Active Encounter [...] 20 MG Oral Tablet TAKE 1 TABLET BY MOUTH EVERY DAY Quantity: 30 Refills: 5 SHEKHAR DRAKE M.D. Start : 08-Oct-2018 Active Sertraline HCl - 25 MG Oral Tablet TAKE 1 TABLET BY MOUTH EVERY DAY Quantity: 90 Refills: 1 SHEKHAR DRAKE M.D. Start : 12-Nov-2018 Active Pyridostigmine Tiger 60 MG Oral Tablet TAKE 1 TABLET BY MOUTH THREE TIMES A DAY Quantity: 270 Refills: 1 SHEKHAR DRAKE M.D. Start : 23-Nov-2018 Active Allergies and Adverse Reactions Name Dates Details Aspirin TABS (Allergy) Status: Active Cefepime HCl SOLN (Allergy) Status: Acti ve ciprofloxacin (Allergy) Status: Active Ciprofloxacin HCl TABS (Allergy) Status: Active Cortizone-10 (Allergy) Status: Active Erythromycin Derivatives (Allergy) Statu s: Active Penicillins (Allergy) Status: Active PHENobarbital TABS (Allergy) Status: Act kimberly Past Medical History Name Dates Details History of diabetes mellitus (V12.29, Z86.39) Status: Resolved History of essential hypertension (V12.59, Z86.79) Status: Resolved History of hyperlipidemia (V12.29, Z86.39) Status: Resolved History of meningioma (V12.41, Z86.018) Status: Resolved Procedures Procedure Dates Details History of Ventriculoperitoneal shunt creation Completed Immunization Name Dates Details Immunizations not documented Social History Name Dates Details Tobacco smoking consumption unknown (finding) Vital Signs Date Test Result Details No Known Vitals to report Results Date Description Value Details Results not documented Plan of Care Name Dates Details Planned Observations Planned Goals not documented Interventions Provided Medication ChangesSertraline HCl - 25 MG Oral Tablet - Renew Instructions Name Dates Details Instructions not documented Encounters Appointment; SHEKHAR DRAKE M.D. On: 21-Sep-2018 10: 30 Encounter Diagnosis: Problem not documented Appointment; SHEKHAR DRAKE M.D. On: 14-Oct-2018 11: 30 Encounter Diagnosis: Problem not documented Appointment; SHEKHAR DRAKE M.D. On: 11-Nov-2018 11: 00 Encounter Diagnosis: Problem not documented Appointment; SHEKHAR DRAKE M.D. On: 25-Jan-2019 8:0 0 Encounter Diagnosis: Problem not documented Appointment; SHEKHAR DRAKE M.D. On: 05-May-2019 11:3 0 Encounter Diagnosis: Problem not documented Appointment; SHEKHAR DRAKE M.D. On: 29-Nov-2019 11: 00 Encounter Diagnosis: Problem not documented Appointment; SHEKHAR DRAKE M.D. On: 05-Jan-2020 10:0 0 Encounter Diagnosis: Problem not documented
--- OUTSIDE RECORDS SUMMARY | 2020-02-11 11:42 | XMS REPORT | Continuity of Care Document ---
:1945 Author Organization [facility] t Address [address] [place] [address] Care Team Providers Name Role Phone Ayush [...] Allergy 02-13 [facility] - 00:00: Medical 00 [place] Salicyla Drug Active Rash [facility]10 [facility] [place] Ciproflo Drug Active Anaphylaxis [facility] x[facility] Allergy 02-10 [facility] - :00: Medical 00 [place] Erythrom Drug Active Other (See Stomach [facility] Intolera Comments) 02-10 cramping Rosio es - nce 00:00: Medical 00 [place] Levoflox Drug Active Anaphylaxis [facility] acin Allergy 02-10 [facility] - :00: Medical 00 [place] Aspirin Allergy Active Univers TABS to drug ity of (finding [place] ) Physici ans Cefepime Allergy Active Univers HCl SOLN to drug ity of (finding [place] ) Physici ans Erythrom Allergy Active Univers ycin to drug ity of Derivati (finding [place] ves ) Physici ans Penicill Allergy Active Univers ins to drug ity of (finding [place] ) Physici ans PHENobar Allergy Active Univers bital to drug ity of TABS (finding [place] ) Physici ans Cortizon Allergy Active Univers e-10 to drug ity of (finding [place] ) Physici ans Social History Social Habit Start Date Stop Date Quantity Comments Source Sex Assigned [facility] Smoking Status Start Date Stop Date Source Never smoker [facility] Medications Ordered Filled Start Stop Current Ordering Indication Dosage Frequency Signature Comments Components Source Medication Medication Date Date Medication? Clinician (SIG) Name Name Pyridostigm Pyridostigm Yes SUUR TAKE 1 Univers ine [place] ine [place] 6-25 BILICILER TABLET BY ity of 60 [...] Oral MG Oral ity of Capsule Capsule [place] Physici ans amLODIPine amLODIPine Yes Uni vers Besylate 5 Besylate 5 ity of MG Oral MG Oral [place] Tablet Tablet Physici ans Lantus SOLN Lantus SOLN Yes U nivers ity of [place] Physici ans Plavix 75 Plavix 75 Yes Unive rs MG Oral MG Oral ity of Tablet Tablet [place] Physici ans Gabapentin Gabapentin Yes Uni vers 100 MG TABS 100 MG TABS i ty of [place] Physici ans Vital Signs Vital Name Observation Time Observation Value Comments Source BP Systolic 2019-05-05 148 mm[Hg] [facility] 11:27:00 [place] Physician s BP Diastolic 2019-05-05 62 mm[Hg] [facility] 11:27:00 [place] Physician s Height 2019-05-05 59 [in_us] [facility] 11:27:00 [place] Physician s Temperature 2019-05-05 98.5 [degF] [facility] 11:27:00 [place] Physician s Heart Rate 2019-05-05 72 /min [facility] 11:27:00 [place] Physician s Height 2019-05-05 59 [in_us] [facility] 11:26:00 [place] Physician s Temperature 2019-05-05 98.5 [degF] [facility] 11:26:00 [place] Physician s Height 2019-01-25 59 [in_us] [facility] 08:41:00 [place] Physician s Temperature 2019-01-25 98.3 [degF] [facility] 08:41:00 [place] Physician s BP Systolic 2018-11-11 149 mm[Hg] Location: [facility] 12::00 Position: [place] Physician s Sitting BP Diastolic 2018-11-11 65 mm[Hg] Location: [facility] :: Position: [place] Physician s Sitting Height 2018-11-11 59 [in_us] [facility] 12:31:00 [place] Physician s Weight 2018-11-11 213 [lb_av] [facility] :: [place] Physician s Body Mass Index 2018-11-11 43.02 kg/m2 University o f Calculated 12:31:00 [place] Physician s Temperature 2018-11-11 97.6 [degF] Method: Oral [facility] 12:: [place] Physician s Heart Rate 2018-11-11 74 /min Location: [facility] 12:31:00 Apical; [place] Physician s BP Systolic 2018-10-14 164 mm[Hg] [place] [facility] [facility] 12::00 Position: [place] Physician s Sitting BP Diastolic 2018-10-14 68 mm[Hg] [place] [facility] [facility] 12::00 Position: [place] Physician s Sitting Height 2018-10-14 59 [in_us] [facility] 12:27:00 [place] Physician s Weight 2018-10-14 215 [lb_av] [facility] 12::00 [place] Phys[place] s Body Mass Index 2018-10-14 43.43 kg/m2 [facility] [facility] Calculated 12::00 [place] Physician s Temperature 2018-10-14 98.5 [degF] Method: Oral [facility] 12::00 [place] Phys[place] s Heart Rate 2018-10-14 84 /min Location: [facility] 12::00 Apical; [place] Physician s BP Systolic 2018-09-21 136 mm[Hg] [place] [facility] [facility] 11:: [place] Physician s BP Diastolic 2018-09-21 88 mm[Hg] Location: [facility] 11::00 [place] Phys[place] s Height 2018-09-21 59 [in_us] [facility] 11:28:00 [place] Physician s Weight 2018-09-21 205 [lb_av] [facility] 11:28: [place] Physician s Body Mass Index 2018-09-21 41.41 kg/m2 [place] [facility] Calculated 11:28:00 [place] Physician s Temperature 2018-09-21 96.8 [degF] Method: Oral [facility] 11:: [place] Physician s Heart Rate 2018-09-21 84 /min Location: [facility] 11:: Apical; [place] Physician s Procedures Procedure Date / Time Performing Source Performed Clinician [place] 2019-01-28 [place] [facility] 00:00:00 Physicians XRAY Chest 2 views [id number] 2018-11-12 [facility] 00:00:00 Physicians IVIG Infusion Therapy 2018-11-11 [facility] 00:00:00 Physicians [QLH] CBC (INCLUDES DIFF/PLT) 2018[facility]11-11 [facility] [QLH] CMP W/EGFR 2018-11-11 [facility] 00:00:00 Physicians MA Bone Density Scan [id number] 2018-10-14 [facility] 00:00:00 Physicians [facility] Ventriculoperitoneal shunt Physi cians creation Plan of Care Planned Activity Planned Date Details Comments Source Diagnostic Test 2018-11-12 XRAY Chest 2 [place] [facility] Pending 00:00:00 views [id number] [code Physicians = [id number]] Encounters Start End Encounter Admission Attending Care Care Encounter Source Date/Time Date/Time Type Type Clinicians Facility Department ID 2019-02-05 Inpatient U [facility] [id number] [facility] 08:54:00 2018-12-24 Inpatient U [facility] [id number] [facility] 18:32:00 2018-08-16 Inpatient E [facility] [id number] [facility] 23:35:00 2020-01-05 2020-01-05 NIRALI Olson [facility] [id number] Univers 10:00:00 10:00:00 t; Cheko CORRIGAN [place], [place] Cheko CORRIGAN Physi ci ans 2019-11-29 2019-11-29 NIRALI Olson [facility] [id number] Univers 11:00:00 11:00:00 t; Cheko CORRIGAN [place], [place] Cheko CORRIGAN Physi ci ans 2019-11-22 2019-11-22 Inpatient E [facility] MED [id number] [facility] 12:06:00 03:48:00 2019-05-05 2019-05-05 NIRALI Olson Neurology - [id number] Univers 11:30:00 11:30:00 t; Cheko CORRIGAN [place] [facility] Dougie CORRIGAN M.D. [place] Physi ci ans 2019-01-25 2019-01-25 NIRALI Olson Neurology - [id number] Univers 08:00:00 08:00:00 t; Cheko CORRIGAN [place] [facility] Dougie CORRIGAN M.D. [place] Physi ci ans 2018-11-29 2018-11-29 Emergency E [facility] [id number] [facility] 07:33:00 07:33:00 2018-11-11 2018-11-11 NIRALI Olson Neurology - [id number] Univers 11:00:00 11:00:00 t[facility] [place] Physi ci ans 2018-10-14 2018-10-14 AppointNIRALI Bueno Neurology [id number] [facility] 11:30:00 11:30:00 t; [place] Che[place] CORRIGAN Physi ans 2018-09-21 2018-09-21 Outpatient U [facility] [id number] [facility] 18:06:00 18:06:00 2018-09-21 2018-09-21 AppointNIRALI Bueno Neurology [id number] [facility] 10:30:00 10:30:00 t; [facility] ans 2018-09-12 2018-09-10 Inpatient U [facility] [id number] [facility] 15:01:00 00:20:00 2018-09-09 2018-09-08 Inpatient U [facility] [id number] [facility] 11:57:00 09:51:00 l [facility] Results Test Description Test Time Test Comments Results Result Comments Source [[facility]] CMP W/EGFR 2018-11-18 12:32:00 Test Item [...] 0.5 mg/dl 0.2-1.2 N (test code = 96939-0) ALKALINE PHSPHATASE (test 156 u/l 33-130 code = ALKALINE PHSPHATASE) AST; Normal (test code = 34 u/l 10-35 N 1916-6) ALT; Above High Threshold 71 u/l 6-29 SP ECIMEN RECEIVED DATE AND (test code = 1742-6) TIME: 2 [id number] [facility] Physicians[[facility]] CBC (INCLUDES DIFF/PLT)2018-11-18 12:32:00 Test Item Value Reference Range Interpretation Comments WHITE BLOOD CELL 12.2 3.8-10.8 COUNT (test code = {Thousand/u} WHITE BLOOD CELL COUNT) RED BLOOD CELL 4.89 3.80-5.10 N COUNT (test code = {Million/uL} RED BLOOD CELL COUNT) HEMAGLOBIN; Normal 15.4 g/dl 11.7-15.5 N (test code = 10938-7) HEMATOCRIT; Above 45.8 % 35.0-45.0 High Threshold (test code = 4544-3) MCV; Normal (test 93.7 fL 80.0-100.0 N code = 787-2) MCHC; Normal (test 33.6 g/dl 32.0-36.0 N code = 40673-1) RDW; Normal (test 14.4 % 11.0-15.0 N code = 788-0) PLATELET COUNT; 177 140-400 N Normal (test code {Thousand/u} = 777-3) MPV; Normal (test 11.0 fL 7.5-12.5 N code = 96176-0) ABSOLUTE 77383 5092-1538 NEUTROPHILS (test {cells/uL} code = ABSOLUTE NEUTROPHILS) ABSOLUTE 8276 547-5007 N LYMPHOCYTES (test {cells/uL} code = ABSOLUTE [...] Normal 1.7 % N (test code = 91798-0) EOSINOPHILS; 0.1 % N Normal (test code = 04288-1) BASOPHILS; Normal 0.2 % N (test code = 36538-8) COMMENT(S) (test See Comment Review of p eripheral code = COMMENT(S)) smear con firmsautomated results.SPECIME N RECEIVED DATE A ND TIME: [facility] PhysiciansXRAY Chest 2 views [id number] 10:03:00 PROCEDURE: Chest Radiograph.Clinical Indication: Pneumonia.Comparison: Chest radiograph 09/17/2018.FINDINGS:The chest shows minimal subsegmental atelectasis at the left lung base. Nofocal consolidationis identified. There is left-sided BLEACH MIXER shunt tubing. Thereare calcified granulomata in the upper lobes.The cardiac silhouette is upper limits of normal in size. Degenerative changeinvolves the thoracic spine and shoulders. An old distal right claviclefracture is suspected.IMPRESSION:1. Minimal left lower lobe subsegmental atelectasis.SL:[id number]--Xqcv by: Eleazar Hamilton MDDictated Date/time: 11/18/18 10:49Electronically Signed by: Eleazar Hamilton MD 11/18/1909:52FINAL REPORTUnU[facility] Bone Density [employer] [id number] 10:53:00BONE DENSITY ASSESSMENT: 10/21/2018CLINICAL DATA: Post menopausal [...] was performed 10/21/2018 on the AP L2- K3vszhpr of spine using a Hologic unit. The [...] careprovider is recommended.This exam was interpreted at [id number] for CRISPIN Riojas 15. Betzy Caba M.D. ms/penrad:10/21/2018 12:45:40 Physical Sciences Instructor(s): Hailey Cornejo [facility]--Read by: Betzy Cabaictated Date/time: 10/21/18 12:45Electronically Signed by: Betzy Caba MD 10/22/1911:45FINAL REPORTMountainStar Healthcare [id number] 15:21:00Surgical Pathology Report Case: [id number] Authorizing Provider: Ruma Santana MD Collected: 02/24/2017 1559 Ordering Location: [facility] Received: 02/25/2017 0810 Pathologist: [...] SERRATED POLYP/ADENOMA Signing Pathologist Direct Phone Line: [phone] signed by Kenji Hercules MD on 02/26/2017 at 3:21 [id number] x 3Diarrhea, rule out microscopic colitisA. Right/ascending [...] METER 144 mg/dL 70-110 H TESTED AT [place] [address] ([facility]) (test code = [facility] [employer] 1538) [address] POCT-GLUCOSE [id number] 14:21:00 Test Item Value Reference Range Interpretation Comments POC-GLUCOSE METER 118 mg/dL 70-110 H TESTED AT [place] [address] ([facility]) (test code = [facility] [employer] 1538) [address]
--- OUTSIDE RECORDS SUMMARY | 2020-02-11 11:42 | XMS REPORT | Summary of Care ---
:1945 Author Name NOELLE Still Address [address] [facility] [place] [address] Care Team Providers Name Role Phone NOELLE [...] DRAKE M.D. Start : 12-Nov-2018 Active Pyridostigmine [place] 60 MG Oral Tablet TAKE 1 TABLET [...]
[2020-02-11] MEDS ORDERED: NA CHLORIDE 0.9% 1,000 ML ONE (12:12)
[2020-02-11 12:33] LABS: Protime INR 0.96
[2020-02-11 12:37] LABS: Absolute Lymphocytes (CBC) 0.6 K/uL (0.7-4.9); Basophils % 0.2 % (0-1.3); Hematocrit 42.6 % (36.0-45.0); MPV 9.1 fL (7.6-11.3); RBC Red Blood Cell Count 5.37 M/uL (3.86-4.86)
[2020-02-11 12:43] LABS: ALT/SGPT 44 U/L (12-78); AST/SGOT 21 U/L (15-37); Albumin 2.7 g/dL (3.4-5.0); Alkaline Phosphatase 242 U/L (45-117); BUN Blood Urea Nitrogen 23 mg/dL (7-18); Bicarbonate 33 mmol/L (21-32); Bilirubin Direct < 0.1 mg/dL (0-0.2); Bilirubin Total 0.4 mg/dL (0.2-1.0); Glucose Level 170 mg/dL (74-106); Lipase 34 U/L (73-393); NT PRO-BNP 1733 pg/mL (<125); Potassium 3.5 mmol/L (3.5-5.1); Protein, Total 6.5 g/dL (6.4-8.2); Sodium Level 143 mmol/L (136-145); Troponin (Emerg Dept Use Only) 0.04 ng/mL (0.0-0.045)
--- NOTE | 2020-02-11 12:52 | RAD REPORT ---
EXAM DESCRIPTION: RAD - Chest Single View - 02/11/2020 12:41 pm CLINICAL HISTORY: COUGH, shortness of breath COMPARISON: February 04 TECHNIQUE: AP portable chest image was obtained 02/11/2020 12:41 pm . FINDINGS: Lung volumes remain low. Left-sided Port-A-Cath is in place. Right lung field is clear. Forman zy opacification over the left base is noted. Heart and vasculature are normal. No pneumothorax. Smal l left pleural effusion is not excluded. No acute bony abnormality seen. No acute aortic findings carrie pected. IMPRESSION: No acute lung parenchymal process seen. Small left pleural effusion is not excluded.
[2020-02-11 13:15] LABS: Urine Blood NEGATIVE (NEG); Urine Glucose NEGATIVE (NEG); Urine Protein NEGATIVE (NEG)
[2020-02-11 13:39] LABS: Anisocytosis 1+; Blood Morphology Comment NOTED (NOT SEEN); Platelet Estimate ADEQ; White Blood Cell Scan OK (OK)
--- NOTE | 2020-02-11 17:41 | RAD REPORT ---
EXAM DESCRIPTION: CT - Thoracic Spine W/o Cont - 02/11/2020 5:01 pm CLINICAL HISTORY: Bilateral lower extremity weakness, diminished or absent ability to ambulate, recent surgery for C7 f racture COMPARISON: CT head and cervical spine October 2019, CT thoracic spine October 2019 TECHNIQUE: Axial 2 mm thick images of the thoracic spine were obtained with sagittal and coronal rec onstruction images generated and reviewed. All CT scans are performed using dose optimization technique as appropriate and may include automated exposure control or mA/KV adjustment according to patient size. FINDINGS: Patient is status post repair of C7 fracture which falls outside of the field of view of t his examination. Slight wedging of the T1 body with large anterior spur not significantly different f rom prior imaging. Prior study demonstrated a T4 transverse fracture. Sclerotic changes are present in the T4 body along the fracture plane. There is increased concavity to the superior endplate of T4 and slight bowing of the posterior wall. Overall body has shown slight loss in height. The T2-3 NT 5-T12 vertebrae are no rmal in height. Bones are osteopenic. No additional fracture sites identifiable. No pathologic bone p rocess identified. No paraspinal soft tissue mass. There is bridging ossification along the anterior and lateral aspects of the vertebrae. Spinous proce ss fusion changes are present T4-T7 and T8-T12. There is partial fusion at the spinous process tips T 3-4 and T7-8. Facet joints are partially fused. Central canal detail is inherently limited. No gross evidence for disc herniation or acute central ca nal finding. Bilateral pleural effusions and lung base atelectasis changes are present. IMPRESSION: Sclerotic changes are present along the fracture plane in the T4 body previously detaile d October 2019. This shows some partial healing along the fracture. However, the T4 body does show new concavity to the superior endplate, slight loss in overall body he ight and minimal convex bowing of the posterior wall. No central spinal stenosis or cord compression at the T4 level. T4 body is at risk of further rodney willie. Elsewhere no additional thoracic spine acute finding. Ankylosing spondylitis or similar changes are e vident in the spine.
--- NOTE | 2020-02-11 17:47 | RAD REPORT ---
EXAM DESCRIPTION: CT - Spine Lumbar Wo Con - 02/11/2020 5:02 pm CLINICAL HISTORY: WEAKNESS, recent fracture repair, new onset absent or diminished ability to ambula te COMPARISON: CT lumbar spine October 2019 TECHNIQUE: Thin section axial imaging of the lumbar spine was performed. Sagittal and coronal recon struction images were generated and reviewed. All CT scans are performed using dose optimization technique as appropriate and may include automated exposure control or mA/KV adjustment according to patient size. FINDINGS: Approximately 25-30% wedge compression fracture of the L2 body is present as previously de tailed. Posterior wall height is preserved. No further compression fracture. Degenerative gas has dev eloped in the L1-2 disc space. The superior aspect L2 posterior wall encroaches into the central jeannine l. Remaining lumbar bodies show osteopenic change but no fracture or acute finding. Prominent facet join t degenerative changes are still present. No perispinal mass has developed. No sacral ala fractures i dentified. Central canal detail is inherently limited. The L2 posterior wall changes cause central spinal stenos is at the L1-2 disc level to approximately 8-9 mm. Prominent facet degenerative change, ligamentous thickening and broad-based disc bulge changes at L3- 4 cause central spinal stenosis to 8 mm. Degenerative changes at L4-5 cause central spinal stenosis t o 6 mm. No significant foraminal encroachment. IMPRESSION: L2 compression fracture stable in height since October 2019 imaging. No acute bone findings seen. Advanced bony degenerative changes are present. Significant central spinal stenosis changes are present at L1-2, L3-4 and most prominently at L4-5. T hese changes are stable from October imaging.
--- NOTE | 2020-02-11 18:01 | EDPHYS ---
Physician Documentation [facility] Name: Franci Lange Age: 75 yrs Sex: Female : 1945 Arrival Date: 02/11/2020 Time: 11:46 Bed 13 Private MD: DILCIA Physician Luther Vang HPI: 02/10 12:00 This 75 yrs old Female presents to ER via EMS with complaints of Weakness. pm1 12:00 The patient presents to the emergency department with weakness of the left lower pm1 extremity, right lower extremity. Onset: The symptoms/episode began/occurred 1 week(s) ago. Context: occurred at home, assisted living. Associated signs and symptoms: Pertinent negatives: fever, chest pain, shortness of breath, headache. Severity of symptoms: in the emergency department the symptoms are worse Pain is currently a 0 / 10. Patient's baseline: Ambulation: walks with assist only, uses walker, The patient has a previous history of spinal injury. The patient has been recently been admitted at [facility], was discharged yesterday, for similar complaints. Patient was admitted to the hospital on 02/03/2020 for generalized weakness secondary to hypoglycemia. Patient has a history of myasthenia gravis. Patient was evaluated by Dr. Patricia and myasthenia gravis crisis was ruled out. She was also treated by Dr. Sparks for COPD exacerbation. Patient was discharged to home yesterday to continue home health with PT after she declined skilled rehab placement. Historical: - Allergies: 11:58 Aspirin; ah 11:58 cefepime; 11:58 CEPHALOSPORINS; 11:58 Ciprofloxacin; 11:58 Phenobarbital; 11:58 Cortisone; 11:58 IVIG; 11:58 PENICILLINS; ah - PMHx: 11:58 Anxiety; CHF; Depression; Diabetes - IDDM; High Cholesterol; Hypertension; Hypothyroidism; Myasthenia Gravis; Myocardial infarction; Osteoporosis; - PSHx: 11:58 spinal surgery; ah - Immunization history:: Adult Immunizations unknown. - Social history:: Smoking status: Patient/guardian denies using. ROS: 12:00 Constitutional: Negative for fever, chills, and weight loss, Eyes: Negative for injury, pm1 pain, redness, and discharge, ENT: Negative for injury, pain, and discharge, Neck: Negative for injury, pain, and swelling, Cardiovascular: Negative for chest pain, palpitations, and edema, Respiratory: Negative for shortness of breath, cough, wheezing, and pleuritic chest pain, Abdomen/GI: Negative for abdominal pain, nausea, vomiting, diarrhea, and constipation, Back: Negative for injury and pain, MS/Extremity: Negative for injury and deformity, Skin: Negative for injury, rash, and discoloration. 12:00 Neuro: Positive for weakness, of the right leg and left leg, Negative for numbness, tingling. Exam: 12:06 Constitutional: This is a well developed, well nourished patient who is awake, alert, pm1 and in no acute distress. Head/Face: Normocephalic, atraumatic. 12:06 Eyes: Pupils equal round and reactive to light, extra-ocular motions intact. Lids and lashes normal. Conjunctiva and sclera are non-icteric and not injected. Cornea within normal limits. Periorbital areas with no swelling, redness, or edema. 12:06 Skin: Warm, dry with normal turgor. Normal color with no rashes, no lesions, and no evidence of cellulitis. 12:06 ENT: Posterior pharynx: no acute changes, Airway: no evidence of obstruction, erythema, is not appreciated, Voice: is hoarse. 12:06 Neck: External neck: abscess, is not appreciated, cellulitis, is not appreciated, crepitus, is not appreciated, ecchymosis, is not appreciated, tenderness, is not appreciated, well healed incisional scar to posterior neck. 12:06 Cardiovascular: Exam negative for acute changes, Rate: normal, Rhythm: regular, Pulses: no pulse deficits are appreciated. 12:06 Respiratory: Exam negative for acute changes, decreased breath sounds, respiratory distress, shortness of breath. 12:06 Abdomen/GI: Exam negative for acute changes, Palpation: abdomen is soft and non-tender, in all quadrants. 12:06 Back: pain, is absent, vertebral tenderness, is not appreciated. 12:06 Neuro: Orientation: is normal, Mentation: is normal, Motor: moves all fours, strength is 5/5 in the right arm and left arm, Strength is 1/5 in the right leg and left leg, Sensation: is normal, no obvious gross deficits. Vital Signs: 11:47 BP 150 / 46; Pulse 68; Resp 20; Temp 97.9; Pulse Ox 100% ; Height 4 ft. 11 in. (149.86 ah cm); Pain 0/10; 12:45 BP 161 / 71; Pulse 71; Resp 25; Pulse Ox 100% ; ah 13:45 BP 144 / 49; Pulse 61; Resp 22; Pulse Ox 100% ; ah 14:45 BP 167 / 48; Pulse 74; Resp 23; Pulse Ox 100% ; ah 15:00 BP 138 / 66; Pulse 62; Resp 19; Pulse Ox 100% ; wh 19:16 BP 154 / 68; Pulse 72; Resp 21; Pulse Ox 100% ; wh 20:14 BP 149 / 59; Pulse 81; Resp 19; Pulse Ox 100% ; wh MDM: 11:48 Patient medically screened. [place] 12:19 Data reviewed: vital signs. Data interpreted: Pulse oximetry: on room air is 100 %. pm1 Interpretation: normal. 14:36 Physician consultation: Angelito Hickman regarding admission, patient's condition, pm1 Recomm[address] neck and transfer patient to hospital system where c-spine surgery was performed. Discussed with my attending and CT spine is not necessary at this time based on her presentation. Patient does not need to be transferred and admit patient to group home facility as recommended on her discharge yesterday. 14:36 Physician consultation: Angelito Hickman Discussed lab findings changes from discharge. pm1 Elevated WBC due to steroid use. 14:44 ED course: Patient unable to be admitted to group home in the hospital here pm1 because staff unavailable to evaluate patient until Thursday. 14:58 ED course: Maria Dolores with [facility]: Patient would not be able to be processed and pm1 admitted to skill nursing until Thursday at the soonest. 15:46 Physician consultation: Melissa Yi MD regarding consult, patient's condition, pm1 Patient does not meet admission criteria to the hospital. Patient needs skilled rehabilitation. Since the soonest skilled rehabilitation will be available is Thursday, the patient can be discharged back to [place] and skilled rehabilitation can be contacted on Thursday. 16:04 ED course: Patient's daughter present in ER waiting room verbally abuse to pm1 administrative staff. Security was called to assist with the situation and she was escorted outside. I went out to talk to the daughter to update her on her mother's plan of care and help deescalate the situation. She continued to be verbally abusive and [place] police department was called by security. 16:10 Physician consultation: Noam Patricia MD regarding consult, patient's condition, pm1 after a discussion of the case, a recommendation for transfer for higher level of care is made, Transfer for additional evaluation of myasthenia gravis crisis and plasmapheresis treatment if required. Plasmapheresis treatment is not available here. 16:35 Physician consultation: Neurology Hipolito was contacted at 16:30, regarding regarding pm1 transfer, patient's condition, would like further tests performed, discussed patient's admission to the hospital here over the past week, her discharge yesterday and presentation to the ER today. Discussed Harshad's recommendation for transfer for further work up of myasthenia gravis and possible plasmapheresis. Due to just her lower extremity weakness, it does not sound like the patient is having a myasthenia gravis crisis. Would like a CT lumbar spine and CT thoracic spine and then call back with results prior to disposition. 17:57 Counseling: I had a detailed discussion with the patient and/or guardian regarding: the pm1 historical points, exam findings, and any diagnostic results supporting the discharge/admit diagnosis, lab results, radiology results, the need to transfer to another facility, [facility] does not immediately have the required specialist, No MRI available. 17:57 Physician consultation: Neurology Hipolito and will see patient Will take the patient, pm1 MRI for further imaging and will have neurosurgery evaluate the patient. 02/10 11:51 Order name: Basic Metabolic Panel; Complete Time: 12:47 [facility] 02/10 11:51 Order name: CBC with Diff; Complete Time: 13:54 [facility] 02/10 11:51 Order name: LFT's; Complete Time: 12:47 [facility] 02/10 11:51 Order name: Magnesium; Complete Time: 12:47 [facility] 02/10 11:51 Order name: NT PRO-BNP; Complete Time: 12:47 [place] 02/10 11:51 Order name: PT-INR; Complete Time: 12:35 [place] 02/10 11:51 Order name: Troponin (emerg Dept Use Only); Complete Time: 12:47 [facility] 02/10 11:51 Order name: XRAY Chest (1 view); Complete Time: 12:54 [facility] 02/10 11:51 Order name: Urine Culture [facility] 02/10 11:51 Order name: Lipase; Complete Time: 12:47 [facility] 02/10 13:04 Order name: Urine Dipstick--Ancillary (enter results); Complete Time: 13:23 02/10 13:38 Order name: CBC Smear Scan; Complete Time: 13:54 [facility] 02/10 16:30 Order name: CT Thoracic Spine Wo Cont; Complete Time: 17:42 pm1 02/10 11:51 Order name: EKG; Complete Time: 11:52 [facility] 02/10 11:51 Order name: Cardiac monitoring; Complete Time: 12:37 [facility] 02/10 11:51 Order name: EKG - Nurse/Tech; Complete Time: 12:37 [facility] 02/10 11:51 Order name: IV Saline Lock; Complete Time: 13:11 [facility] 02/10 11:51 Order name: Labs collected and sent; Complete Time: 12:19 [facility] 02/10 11:51 Order name: O2 Per Protocol; Complete Time: 12:19 [facility] 02/10 11:51 Order name: O2 Sat Monitoring; Complete Time: 12:19 [facility] 02/10 11:51 Order name: Urine Dipstick-Ancillary (obtain specimen); Complete Time: 13:11 [facility] 02/10 16:30 Order name: CT Lumbar Spine Wo Con; Complete Time: 17:48 pm1 Administered Medications: 13:10 Drug: NS 0.9% 1000 ml Route: IV; Rate: 125 ml/hr; Site: right antecubital; 20:16 Follow up: Response: No adverse reaction; IV Status: Completed infusion Disposition: 02/11/20 18:00 Transfer ordered to [facility]. Diagnosis is Weakness - Bilateral Lower Extermities. - Reason for transfer: Higher level of care. - Accepting physician is Hipolito. - Condition is Stable. - Problem is new. - Symptoms are unchanged. Addendum: 02/13/2020 10:51 Co-signature as Attending Physician, Luther Vang MD I agree with the assessment and c vila plan of care. Signatures: Dispatcher [employer] Luther Palomares MD MD cha Marinas, Patrick, INSURANCE SALES SPECIALIST INSURANCE SALES SPECIALIST pm1 Shilpi Shrestha Sary Demarco, RN RN Corrections: (The following items were deleted from the chart) 02/10 13:39 12:41 Manual Differential ordered. EDMS EDMS 17:27 14:36 ED course: Patient unable to be admitted to group home in the hospital here pm1 because staff unavailable to evaluate patient until Thursday. pm1 18:01 18:00 02/11/2020 18:00 Transfer ordered to [facility]. pm1 Diagnosis is Weakness - Bialteral Lower Extermities. Reason for transfer: Higher level of care. Accepting physician is Hipolito. Condition is Stable. Problem is new. Symptoms are unchanged. pm1 20:16 18:01 02/11/2020 18:00 Transfer ordered to [facility]. wh Diagnosis is Weakness - Bilateral Lower Extermities. Reason for transfer: Higher level of care. Accepting physician is Hipolito. Condition is Stable. Problem is new. Symptoms are unchanged. pm1
--- NOTE | 2020-02-11 18:01 | ER ---
Nurse's Notes [facility] Name: Franci Lange Age: 75 yrs Sex: Female : 1945 Arrival Date: 02/11/2020 Time: 11:46 Bed 13 Private MD: Diagnosis: Weakness-Bilateral Lower Extermities Presentation: 02/10 11:37 The patients blood glucose was checked before arriving to the hospital and was found to be normal. Initial Sepsis Screen: Does the patient meet any 2 criteria? No. Patient's initial sepsis screen is negative. Does the patient have a suspected source of infection? No. Patient's initial sepsis screen is negative. Risk Assessment: Do you want to hurt yourself or someone else? Patient reports no desire to harm self or others. Onset of symptoms. 11:37 Acuity: JAY 3 11:47 Chief complaint: Patient states: per EMS Pt was DC from hospital last night, Pt was able to walk with physical therapy last night, this morning c/o weakness to BLE and unable to ambulate. pt also had spinal surgery 6 weeks ago. Coronavirus screen: At this time, the client does not indicate any symptoms associated with coronavirus-19. Ebola Screen: No symptoms or risks identified at this time. 11:47 Method Of Arrival: EMS: [facility] Historical: - Allergies: 11:58 Aspirin; 11:58 cefepime; 11:58 CEPHALOSPORINS; 11:58 Ciprofloxacin; 11:58 Phenobarbital; 11:58 Cortisone; 11:58 IVIG; 11:58 PENICILLINS; - PMHx: 11:58 Anxiety; CHF; Depression; Diabetes - IDDM; High Cholesterol; Hypertension; Hypothyroidism; Myasthenia Gravis; Myocardial infarction; Osteoporosis; - PSHx: 11:58 spinal surgery; - Immunization history:: Adult Immunizations unknown. - Social history:: Smoking status: Patient/guardian denies using. Screenin:25 Abuse screen: Denies threats or abuse. Nutritional screening: No deficits noted. Tuberculosis screening: No symptoms or risk factors identified. Fall Risk None identified. Assessment: 11:45 General: Appears in no apparent distress. Behavior is calm, cooperative. Pain: Denies pain. Neuro: Level of Consciousness is awake, alert, obeys commands, Oriented to person, place, time. Cardiovascular: Denies chest pain, Heart tones S1 S2 present Capillary refill < 3 seconds. Respiratory: Airway is patent Respiratory effort is even, unlabored, Respiratory pattern is regular, symmetrical, Breath sounds are coarse bilaterally. GI: Abdomen is obese, Bowel sounds present X 4 quads. : Urine is clear. Derm: Bruising that is dark purple. Musculoskeletal: Circulation, motion, and sensation intact. Capillary refill < 3 seconds, Reports weakness in BLE. 12:45 Reassessment: Patient and/or family updated on plan of care and expected duration. Pain ah level reassessed. Patient is alert, oriented x 3, equal unlabored respirations, skin warm/dry/pink. NO needs voiced at this time. 13:30 Reassessment: Patient and/or family updated on plan of care and expected duration. Pain ah level reassessed. Pericare provided. No other needs voiced. Pt denies pain. 14:30 Reassessment: Patient and/or family updated on plan of care and expected duration. Pain ah level reassessed. Patient is alert, oriented x 3, equal unlabored respirations, skin warm/dry/pink. NO needs voiced at this time. 15:30 Reassessment: Patient and/or family updated on plan of care and expected duration. Pain ah level reassessed. Patient is alert, oriented x 3, equal unlabored respirations, skin warm/dry/pink. Pt resting with eyes closed, no needs voiced at this time. 16:50 Reassessment: Pt to radiology via . 17:11 Reassessment: Pt returned from CT. 18:15 Reassessment: Pericare provided and brief changed. Pt tolerated well. Warm blankets ah provided. 19:13 Reassessment: Patient appears in no apparent distress at this time. Patient and/or wh family updated on plan of care and expected duration. Pain level reassessed. Patient is alert, oriented x 3, equal unlabored respirations, skin warm/dry/pink. 19:32 Reassessment: Report given to Lisa NIÑO at [facility]. 20:14 Reassessment: Patient appears in no apparent distress at this time. Patient and/or wh family updated on plan of care and expected duration. Pain level reassessed. Patient is alert, oriented x 3, equal unlabored respirations, skin warm/dry/pink. Vital Signs: 11:47 BP 150 / 46; Pulse 68; Resp 20; Temp 97.9; Pulse Ox 100% ; Height 4 ft. 11 in. (149.86 ah cm); Pain 0/10; 12:45 BP 161 / 71; Pulse 71; Resp 25; Pulse Ox 100% ; ah 13:45 BP 144 / 49; Pulse 61; Resp 22; Pulse Ox 100% ; ah 14:45 BP 167 / 48; Pulse 74; Resp 23; Pulse Ox 100% ; ah 15:00 BP 138 / 66; Pulse 62; Resp 19; Pulse Ox 100% ; wh 19:16 BP 154 / 68; Pulse 72; Resp 21; Pulse Ox 100% ; wh 20:14 BP 149 / 59; Pulse 81; Resp 19; Pulse Ox 100% ; wh ED Course: 11:46 Patient arrived in ED. ah 11:48 Luther Vang MD is Attending Physician. [facility] 11:50 Aron Covington NP is PHCP. pm1 11:53 Sary Demarco, RN is Primary Nurse. ah 11:54 Triage completed. ah 12:41 XRAY Chest (1 view) In Process Unspecified. EDMS 13:10 Inserted saline lock: 20 gauge in right antecubital area, using aseptic technique. jp3 15:02 called [facility] at [phone]/ Rabia is fire protection fabricator and will head this way as eb soon as possible. 16:10 transfer initiated with Jeny Bowers from the [facility] Transfer Elizabeth/. eb 17:01 CT Thoracic Spine Wo Cont In Process Unspecified. EDMS 17:[address] Santiago the neurologist fire protection fabricator for [facility] with Aron Alvarez for eb patient transfer consultation. 17:02 CT Lumbar Spine Wo Con In Process Unspecified. EDMS 17:[address] Santiago again with Aron Alvarez. For patient transfer consultation. eb 18:[address] Schafer the hospitalist fire protection fabricator for [facility] with Aron Alvarez for eb patient transfer consultation. 18:43 Arm band placed on right wrist. ah 18:43 Patient has correct armband on for positive identification. Placed in gown. Bed in low ah position. Call light in reach. Side rails up X2. monitoring manager on. Pulse ox on. NIBP on. 18:55 Xochitl Hills, RN gave admin approval. The patinet is going to room [address] Dr[address] Hanh levy is the accepting physician. Report to be called to . Face sheet to be faxed to per Xochitl's request. 20:15 No provider procedures requiring assistance completed. Patient transferred, IV remains in place. Administered Medications: 13:10 Drug: NS 0.9% 1000 ml Route: IV; Rate: 125 ml/hr; Site: right antecubital; 20:16 Follow up: Response: No adverse reaction; IV Status: Completed infusion Outcome: 18:00 ER care complete, transfer ordered by . pm1 20:15 Transferred by ground EMS to [facility], Transfer form completed. X-rays sent w/ patient. Note: Report given to [facility] 20:15 Condition: stable 20:15 Instructed on the need for transfer. 20:16 Patient left the ED. Signatures: Dispatcher [employer] EDLuther Crowder MD MD cha Marinas, Patrick, SOLUTION LEAD SOLUTION LEAD pm1 Fady, Shilpi Cira Hodges Jacob 3 Sary Demarco, RN RN
[2020-02-11 20:33] VITALS: TEMP 97.9; O2SAT 100
[2020-02-11 20:40] VITALS: BP 149/59
--- NOTE | 2020-02-12 09:46 | EKG ---
Test Date: 2020-02-11 Test Time: 12:28:18 Truck Supervisor: LEIGH ANN MEASUREMENT RESULTS: Intervals: Rate: 68 WI: 156 QRSD: 82 QT: 424 QTc: 450 [place]: P: 15 WI: 156 QRS: 13 T: 38 INTERPRETIVE STATEMENTS: Sinus rhythm with occasional premature ventricular complexes Inferior infarct, age undetermined Anterior infarct, age undetermined Abnormal ECG Compared to ECG 02/03/2020 11:10:09 Ventricular premature complex(es) now present Sinus bradycardia no longer present Myocardial infarct finding still present Electronically Signed On 02-12-20 09:44:19 CDT by Jeet Valles
== END 2020-02-11 20:16 | disposition short-term general hospital (02) ==
LOC: ER 11:39
DX: R53.1 Weakness (principal); I10 Essential (primary) hypertension; G70.00 Myasthenia gravis without (acute) exacerbation; Z88.0 Allergy status to penicillin; Z88.3 Allergy status to other anti-infective agents; Z88.6 Allergy status to analgesic agent; Z88.8 Allergy status to other drugs, medicaments and biological substances
CPT/HCPCS: 96361; 93005; 85025; 87086; 80048; 36415; 83735; 85610; 80076; 81003; 84484; 83690; 83880; 72131; 72128; 71045; 96360; 99285; J7030; 87088

== ENCOUNTER 2020-03-16 09:24 | Observation (INO) | payer OTHER ==
--- OUTSIDE RECORDS SUMMARY | 2020-03-16 09:31 | XMS REPORT | Clinical Summary ---
:[address] [facility] [place] [place] Address [address] [place] [address] Care Team Providers Name Role Phone Ayush Scott Primary Care Provider Allergies Active Allergy Reactions Severity Noted Date Comments Salicylates Rash Low 02/10/2014 Ciprofloxacin Anaphylaxis High 02/10/2014 Erythromycin Other (See Comments) 02/10/2014 Stomach cramping Gabapentin Rash High 02/12/2020 Levofloxacin Anaphylaxis High 02/10/2014 Other Other (See Comments) High 02/11/2020 IVIG ca uses large blisters b/l legs Penicillins Rash High 02/13/2014 Medications Medication Sig Dispensed Refills Start End Status Date Date metoprolol Take 25 mg by 0 Activ e (TOPROL-XL) 25 MG mouth daily. 24 hr tablet furosemide (LASIX) Take 40 mg by 0 Active 40 MG tablet mouth daily. ramipril (ALTACE) 5 Take 5 mg by mouth 0 Active MG capsule daily. rOPINIRole (REQUIP) Take 2 mg by mouth 0 Active 2 MG tablet nightly. amLODIPine Take 5 mg by mouth 0 Active (NORVASC) 5 MG daily. tablet benzonatate Take 200 mg by 0 Act kimberly (TESSALON) 200 MG mouth 3 (three) capsule times daily as needed for Cough. diphenhydrAMINE Take 25 mg by 0 Active (BENADRYL ALLERGY) mouth every 6 25 mg tablet (six) hours as needed. insulin glargine Inject 40 Units 0 Active (LANTUS SOLOSTAR) subcutaneously 2 100 unit/mL (3 mL) (two) times daily. InPn DULAGLUTIDE Inject 0 Active (TRULICITY SUBQ) subcutaneously every 7 days. levothyroxine Take 88 mcg by 0 A ctive (SYNTHROID, mouth Every LEVOTHROID) 88 MCG morning on an tablet empty stomach. metFORMIN Take 500 mg by 0 Activ e (GLUCOPHAGE) 500 MG mouth 2 (two) tablet times daily with breakfast and dinner. gabapentin Take 100 mg by 0 Acti ve (NEURONTIN) 100 MG mouth daily. capsule atorvastatin Take 40 mg by 0 Act kimberly (LIPITOR) 40 MG mouth daily. tablet clonazePAM Take 0.5 mg by 0 02/10/20 Acti ve (KLONOPIN) 0.5 MG mouth 2 (two) 20 tablet times daily. rosuvastatin Take 20 mg by 0 12/31/19 Act kimberly (CRESTOR) 20 MG mouth daily. 20 tablet sertraline (ZOLOFT) Take 25 mg by 0 02/07/20 Active 25 MG tablet mouth nightly. 20 predniSONE Take 1 tablet (20 0 02/16/20 A ctive (DELTASONE) 20 MG mg total) by mouth 20 tablet daily. pyridostigmine Take 5 mLs (60 mg 473 mL 0 02/15/20 Active (MESTINON) 60 mg/5 total) by mouth 20 mL syrup every 8 (eight) hours. levothyroxine 88 Take 1 tablet by 0 Discontinued mcg Cap mouth every 020 morning before breakfast. predniSONE Take 1 tablet (20 0 02/16/20 D iscontinued (DELTASONE) 20 MG mg total) by mouth 20 020 (Stop Taking at tablet daily for 10 days. D ischarge) pyridostigmine Take 5 mLs (60 mg 473 mL 0 02/15/20 Discontinued (MESTINON) 60 mg/5 total) by mouth 20 020 (Stop Taking at mL syrup every 8 (eight) Disc harge) hours. Active Problems Problem Noted Date Myasthenia gravis with acute exacerbation 02/11/2020 Trigger finger 02/13/2014 Encounters Date Type Specialty Care Team Description 02/11/2020 - Hospital Encounter General Internal Susy Schafer Myast henia gravis with acute exacerbation (HCC); 02/15/2020 Medicine MD [place] Leukocytosis, unspecified type; Changela, Weakness; Veronica Palomo MD Physical deconditioning PaezShirley rollins MD Agrawal, Neeraj, MD after 03/16/2019 Social History Tobacco Use Types Packs/Day Years Used Date Never Smoker Smokeless Tobacco: Never Used Alcohol Use Drinks/Week oz/Week Comments No Sex Assigned at Date Recorded Not on file Last Filed Vital Signs Vital Sign Reading Time Taken Comments Blood Pressure 136/63 02/15/2020 1:00 PM CDT Pulse 71 02/15/2020 1:00 PM CDT Temperature 36.1 C (96.9 F) 02/15/2020 1:00 PM CDT Respiratory Rate 18 02/15/2020 1:00 PM CDT Oxygen Saturation 96% 02/15/2020 1:00 PM CDT Inhaled Oxygen Concentration - - Weight 84.5 kg (186 lb 4.8 oz) 02/11/2020 10:11 PM CDT Height 149.9 cm (4' 11") 02/11/2020 10:11 PM CDT Body Mass Index 37.63 02/11/2020 10:11 PM CDT Plan of Treatment Health Maintenance Due Date Last Done Comments BREAST CANCER SCREENING 1945 PNEUMOCOCCAL 65+ YRS (1 of 1 - 01/10/2012 [id number]) MEDICARE ANNUAL WELLNESS (YEAR 2 or FIRST 06/02/2014 YEAR if no IPPE) INFLUENZA VACCINE (#1) 2020 COLON CANCER SCREENING COLONOSCOPY 02/24/2027 02/24/2017, 0 02/24/2017 Procedures Procedure Name Priority Date/Time Associated Comments Diagnosis REPORT OF PROCEDURE - 02/22/2020 5:13 ENDOSCOPY SCAN PM CDT POCT-GLUCOSE METER Routine 02/15/2020 1:09 Resul ts for this PM CDT procedure are i n the results section. POCT-GLUCOSE METER Routine 02/15/2020 8:38 Resul ts for this AM CDT procedure are i n the results section. CBC W/PLT COUNT & AUTO Routine 02/15/2020 4:38 R esults for this DIFFERENTIAL AM CDT procedure are i n the results section. CBC W/PLT COUNT & AUTO Routine 02/15/2020 4:38 R esults for this DIFFERENTIAL AM CDT procedure are i n the results section. POCT-GLUCOSE METER Routine 02/14/2020 9:04 Resul ts for this PM CDT procedure are i n the results section. POCT-GLUCOSE METER Routine 02/14/2020 6:04 Resul ts for this PM CDT procedure are i n the results section. URINALYSIS W/ REFLEX Routine 02/14/2020 3:04 Res ults for this URINE CULTURE PM CDT procedure are in the results section. URINE CULTURE Routine 02/14/2020 3:04 Results fo r this PM CDT procedure are i n the results section. POCT-GLUCOSE METER Routine 02/14/2020 12:17 Resul ts for this PM CDT procedure are i n the results section. POCT-GLUCOSE METER Routine 02/14/2020 11:51 Resul ts for this AM CDT procedure are i n the results section. XR ESOPH SWALLOW Routine 02/14/2020 10:24 Results for this FUNCTION W/CINE VIDEO AM CDT proced ure are in the results section. CBC W/PLT COUNT & AUTO Routine 02/14/2020 4:24 R esults for this DIFFERENTIAL AM CDT procedure are i n the results section. CBC W/PLT COUNT & AUTO Routine 02/14/2020 4:24 R esults for this DIFFERENTIAL AM CDT procedure are i n the results section. POCT-GLUCOSE METER Routine 02/13/2020 10:29 Resul ts for this PM CDT procedure are i n the results section. POCT-GLUCOSE METER Routine 02/13/2020 5:26 Resul ts for this PM CDT procedure are i n the results section. XR CHEST 2 VIEWS Routine 02/13/2020 12:01 Results for this PM CDT procedure are i n the results section. POCT-GLUCOSE METER Routine 02/13/2020 8:03 Resul ts for this AM CDT procedure are i n the results section. POCT-GLUCOSE METER Routine 02/12/2020 10:59 Resul ts for this PM CDT procedure are i n the results section. POCT-GLUCOSE METER Routine 02/12/2020 5:20 Resul ts for this PM CDT procedure are i n the results section. XR CHEST 1 VIEW JOSHUA 02/12/2020 12:43 Results for this PORTABLE/BEDSIDE PM CDT procedure a re in the results section. POCT-GLUCOSE METER Routine 02/12/2020 12:06 Resul ts for this PM CDT procedure are i n the results section. COMPREHENSIVE Routine 02/12/2020 10:54 Results fo r this METABOLIC PANEL AM CDT procedure ar e in the results section. CREATINE KINASE (CK) Routine 02/12/2020 10:54 Res ults for this AM CDT procedure are i n the results section. LACTATE DEHYDROGENASE Routine 02/12/2020 10:54 Re sults for this (LDH) AM CDT procedure are i n the results section. VITAMIN B12 Routine 02/12/2020 10:54 Results for this AM CDT procedure are i n the results section. TSH/FREE T4 IF Routine 02/12/2020 10:54 Results f or this INDICATED AM CDT procedure are i n the results section. POCT-GLUCOSE METER Routine 02/12/2020 9:36 Resul ts for this AM CDT procedure are i n the results section. CBC W/PLT COUNT & AUTO Routine 02/12/2020 8:49 R esults for this DIFFERENTIAL AM CDT procedure are i n the results section. CBC W/PLT COUNT & AUTO Routine 02/12/2020 8:49 R esults for this DIFFERENTIAL AM CDT procedure are i n the results section. SARS-COV2/RT-PCR ([facility] Routine 02/12/2020 3:39 R esults for this & REF LABS) AM CDT procedure are i n the results section. after 03/16/2019 Results EKG-SCANNED (02/22/2020 5:13 PM CDT) Narrative Performed At This result has an attachment that is no t available. POC-Glucose meter (02/15/2020 1:09 PM CDT)Only the most recent of13 results within the time period is included. POC-Glucose Meter 101Comment: : 70 - 110 mg/dL [facility] TESTED AT [address], [address]: [employer] Person/Technic radha ID = [id number] for LENNOX OSBORN Specimen Blood Performing Organization Address City/State/Zipcode Phone Number [address] [address] CENTER CBC with platelet count + automated diff (02/15/2020 4:38 AM CDT)Only the most recent of3 resultswithin the time period is included. Pathologist Sig nature WBC 19.1 (H) 3.5 - 10.5 [facility] K/L [facility] RBC 4.85 3.93 - 5.22 [facility] M/[facility] Hemoglobin 11.8 11.2 - 15.7 [facility] GM/DL [facility] Hematocrit 40.3 34.1 - 44.9 % [facility] MCV 83.1 79.4 - 94.8 fL [facility] MCH 24.3 (L) 25.6 - 32.2 pg [facility] MCHC 29.3 (L) 32.2 - 35.5 [facility] GM/DL [facility] RDW 16.7 (H) 11.7 - 14.4 % [facility] Platelets 154 150 - 450 K/CU [facility] MM [facility] MPV 12.4 (H) 9.4 - 12.3 fL [facility] nRBC 0 0 - 0 /100 WBC [facility] % Neutros 82 % [facility] % Lymphs 12 % [facility] % Monos 5 % [facility] % Eos 0 % [facility] % Baso 0 % [facility] # Neutros 15.53 (H) 1.56 - 6.13 [facility] # Lymphs 2.34 1.18 - 3.74 [facility] # Monos 0.92 (H) 0.24 - 0.36 [facility] # Eos 0.06 0.04 - 0.36 [facility] # Baso 0.03 0.01 - 0.08 [facility] Immature 1 0 - 1 % [facility] Granulocytes-Relativ [facility] e CENTER Specimen Blood Performing Organization Address City/State/Zipcode Phone Number [facility] [address] [place] [address] CENTER Urinalysis w/Microscopic + Reflex to Culture (02/14/2020 3:04 PM CDT) Color, UA Yellow [facility] Clarity, UA Hazy [facility] Specific [place], 1.028 1.001 - 1.035 [facility] pH, UA 6.0 5.0 - 8.0 [facility] Protein, UA 30 mg/dL (A) Negative [facility] Glucose, UA Negative Negative [facility] Ketones, UA Negative Negative [facility] Bilirubin, UA Negative Negative [facility] Blood, UA Negative Negative [facility] Nitrite, UA Negative Negative [facility] Leukocytes, UA Moderate (A) Negative [facility] Urobilinogen, UA 0.2 0.2 - 1.0 mg/dL [facility] RBC, UA 2 /HPF [facility] WBC, UA 28 /HPF [facility] Mucus Occasional [facility] Squam Epithel, UA 1 /HPF [facility] Hyaline Casts, UA 1 /LPF [facility] Ca Oxalate Jagruti, Occasional [facility] Specimen Source [facility] Specimen Urine Narrative Performed At [employer] Person ID - [auto] [facility] [employer] Person ID - radha Performing Organization Address City/State/Zipcode Phone Number [facility] [address] [place] [address] [place] Urine culture (02/14/2020 3:04 PM CDT) Pathologist Sig nature Result See comment [facility] Specimen Urine Narrative Performed At >100,000 col/mL enteric organisms of >3 [facility] types. No further workup performed. Multiple organisms suggestive of colonization or contamination. Repeat collection recommended. Performing Organization Address City/State/Zipcode Phone Number [facility] [address] [place] [address] CENTER [place] esoph swallow funct with cine video (02/14/2020 10:24 AM CDT) Specimen Narrative Performed At FINAL REPORT GE RIS EXAMINATION: Modified barium swallow rodney dy INDICATION: Dysphasia. COMPARISON: Chest radiograph dated 2019. TECHNIQUE: The examination was performed in conjunction with speech pathology. Varying consistencies of ej um was administered under lateral fluoroscopic observation. Fluoroscopy time: 0.2 minutes Number of images: 1 IMPRESSION: Please refer to speech pathologist's not e from same date for further description. Penetration of the airway with consisten cy. No aspiration with any of the administered consistencies. Signed: Alan Gutierrez MD Report Verified Date/Time: 02/14/2020 12:20:00 Reading Location: [address] Reading Room Procedure Note Interface, External Ris In - 02/14/2020 12:22 PM CDT FINAL REPORT EXAMINATION: Modified barium swallow rodney dy INDICATION: Dysphasia. COMPARISON: Chest radiograph dated 2019. TECHNIQUE: The examination was performed in conjunction with speech pathology. Varying consistencies of ej um was administered under lateral fluoroscopic observation. Fluoroscopy time: 0.2 minutes Number of images: 1 IMPRESSION: Please refer to speech pathologist's not e from same date for further description. Penetration of the airway with consisten cy. No aspiration with any of the administered consistencies. Signed: Alan Gutierrez MD Report Verified Date/Time: 02/14/2020 1 2:20:00 Reading Location: [address] Reading Room Performing Organization Address City/State/Zipcode Phone Number GE RIS XR chest 2 views (02/13/2020 12:01 PM CDT) Specimen Narrative Performed At FINAL REPORT GE RIS CLINICAL HISTORY: evaluate position of l eft chest mediport TECHNIQUE: 2 views of the chest COMPARISON: 02/12/2020 IMPRESSION: The tip of the left chest wall port agai n terminates in the left superior mediastinum. Ventriculoperitone al shunt tubing again projects over the right hemibody. Left lung base opacity is again seen wit h small left greater than right pleural effusions. There is mild c ardiomegaly. Cervical fusion hardware is again seen. Signed: Megan Greenwood MD Report Verified Date/Time: 02/13/2020 12:51:24 Reading Location: [facility] y Reading Room Procedure Note Interface, External Ris In - 02/13/2020 12:53 PM CDT FINAL REPORT CLINICAL HISTORY: evaluate position of l eft chest mediport TECHNIQUE: 2 views of the chest COMPARISON: 02/12/2020 IMPRESSION: The tip of the left chest wall port agai n terminates in the left superior mediastinum. Ventriculoperitone al shunt tubing again projects over the right hemibody. Left lung base opacity is again seen wit h small left greater than right pleural effusions. There is mild c ardiomegaly. Cervical fusion hardware is again seen. Signed: Meagn Greenwood MD Report Verified Date/Time: 02/13/2020 1 2:51:24 Reading [facility] Performing Organization Address City/State/Zipcode Phone Number [employer] XR chest 1 view portable / bedside (02/12/2020 12:43 PM CDT) Specimen Narrative Performed At FINAL REPORT RIS RAD, CHEST, 1 VIEW, NON DEPT TECHNIQUE: Frontal view of the chest. INDICATION: concern for aspiration. COMPARISON: None FINDINGS/IMPRESSION: Lines/Tubes: Left chest Mediport, tip of the catheter projects over the aortic arch, uncertain position. P artially visualized ventriculoperitoneal shunt. Lungs/pleura: Tenting of the left hemidi aphragm. Some likely streaky left basal atelectasis or scar. No pneum othorax. Trace right pleural effusion or pleural parenchymal scarring . Heart and Mediastinum: Mild cardiomegaly and aortic knob calcifications. Soft Tissues and Bones: Partially visual ized cervical spine fixation hardware. Degenerative changes. No acute osseous abnormality. Signed: Mehnaz Maxwell MD Report Verified Date/Time: 02/12/2020 14:59:34 Reading Location: [facility] C013Y CT Body R eading Room Procedure Note Interface, External Ris In - 02/12/2020 3:01 PM CDT FINAL REPORT RAD, CHEST, 1 VIEW, NON DEPT TECHNIQUE: Frontal view of the chest. INDICATION: concern for aspiration. COMPARISON: None FINDINGS/IMPRESSION: Lines/Tubes: Left chest Mediport, tip o f the catheter projects over the aortic arch, uncertain position. Pa rtially visualized ventriculoperitoneal shunt. Lungs/pleura: Tenting of the left hemidi aphragm. Some likely streaky left basal atelectasis or scar. No pneum othorax. Trace right pleural effusion or pleural parenchymal scarring . Heart and Mediastinum: Mild cardiomegaly and aortic knob calcifications. Soft Tissues and Bones: Partially visual ized cervical spine fixation hardware. Degenerative changes. No acute osseous abnormality. Signed: Mehnaz Maxwell MD Report Verified Date/Time: 02/12/2020 1 4:59:34 Reading Location: [facility] C013Y CT Body R eading Room Performing Organization Address City/State/Zipcode Phone Number [facility] TSH/Free T4 If Indicated (02/12/2020 10:54 AM CDT) Pathologist Sig [facility] TSH 1.158 0.350 - 4.940 uIU/mL [facility] Specimen Blood Performing Organization Address City/[facility] Phone Number [facility] [address] [place] [address] Lactate dehydrogenase (LDH) (02/12/2020 10:54 AM CDT) Pathologist [facility] nature LDH 401 (H)Comment: 125 - 220 U/L [facility] Specimen slightly - [place] hemolyzed Specimen Blood Performing Organization Address City/[facility] Phone Number [facility] [address] [place] [address] Vitamin B12 (02/12/2020 10:54 AM CDT) Pathologist Sig nature Vitamin B12 486 213 - 816 pg/mL [facility] AIR Specimen Blood Performing Organization Address [facility] Phone Number [facility] [address] [place] [address] Creatine Kinase (CK) (02/12/2020 10:54 AM CDT) Pathologist Sig nature Total CK 47 29 - 200 U/L [facility] Specimen Blood Performing Organization Address [facility] Phone Number [facility] [address] [place] [address] Comprehensive metabolic panel (02/12/2020 10:54 AM CDT) Protein, Total 4.8 (L)Comment: 6.0 - 8.3 [facility] Specimen slightly gm/dL [facility] hem[facility]zed Albumin 2.9 (L)Comment: 3.5 - 5.0 [facility] Specimen slightly g/dL [facility] hemolyzed Alkaline 174 (H) 40 - 150 U/L [facility] Phosphatase [facility] Total Bilirubin 0.3Comment: 0.2 - 1.2 [facility] Specimen slightly mg/dL [facility] hemolyzed Sodium 140 136 - 145 [facility] meq/L [facility] Potassium 3.6Comment: 3.5 - 5.1 [facility] Specimen slightly meq/L [facility] hemolyzed Chloride 105 98 - 107 [facility] meq/L [facility] CO2 28 22 - 29 meq/L [facility] BUN 11 7 - 21 mg/dL [facility] Creatinine 0.48 (L)Comment: 0.57 - 1.25 [facility] Specimen slightly mg/dL [facility] hemolyzed Glucose 95 70 - 105 [facility] mg/dL [facility] Calcium 8.2 (L) 8.4 - 10.2 [facility] mg/dL [facility] AST 32Comment: 5 - 34 U/L [facility] Specimen slightly [facility] hemolyzed ALT 31Comment: 6 - 55 U/L [facility] Specimen slightly [facility] hemolyzed EGFR 127Comment: mL/min/1.73 [facility] ESTIMATED GFR IS sq m [facility] NOT ACCURATE CREATININE CLEARANCE IN PREDICTING GLOMERULAR FILTRATION RATE. ESTIMATED GFR IS NOT APPLICABLE FOR DIALYSIS PATIENTS. Specimen Blood Performing Organization Address City/State/Zipcode Phone Number [facility] [address] [place] [address] SARS-CoV2/RT-PCR (Asymptomatic ONLY) (02/12/2020 3:39 AM CDT) SARS-COV2/RT-PCR Negative Not Detected, [facility] Negative, See [facility] external report CENTER for linked test SARS-COV-2 [facility] PERFORMING LAB [facility] Specimen Other - Nasopharyngeal wall structure (b josseline structure) Narrative Performed At Negative result for this test determines that [facility] SARS-CoV-2 RNA was not present in the specimen above the Limit of Detection (LOD). However, Negative results do not preclude SARS-CoV-2 infection and should not be used as the sole basis for treatment or patient management decisions. Negative results must be combined with clinical observations, patient history, and epidemiological information. A false negative result may occur if a specimen is improperly collected, transported or handled. A false negative result should be considered if patient's recent exposures or clinical presentation indicate that COVID-19 (SARS-CoV-2) is likely and diagnostic tests for other causes of illness are negative. Re-testing should be considered in cases of suspected false negatives. The limit of detection for this assay is 800 copies/mL. This SARS CoV-2 test is a real-time RT-PCR test intended for the qualitative detection of nucleic acid from SARS-CoV-2 in a nasopharyngeal swab specimen collected from individuals suspected of COVID-19 by their healthcare provider. This test has not been Food and Drug Administration (FDA) cleared or approved. This is a modified version of an approved Emergency Use Authorization (EUA) and is in the process of review by the FDA. Once authorized by the FDA, the issued EUA will be effective until the declaration that circumstances exist justifying the authorization of the emergency use of in vitro diagnostic tests for detection and/or diagnosis of COVID-19 is terminated under Section 564(b)(2) of the Act or the EUA is revoked under Section 564(g) of the Act. Fact Sheet for Healthcare Providers: https://www.[employer]/sites/default/files/pro duct/documents/Fact_Sheet_HC_Providers_Lyra_SA RS-CoV-2.pdf Fact Sheet for Healthcare Patients: https://www.[employer]/sites/default/files/pro duct/documents/Fact_Sheet_Patients_Lyra_SARS-C oV-2.pdf Performing Laboratory: [address] [place] [address] Performing Organization Address City/State/Zipcode Phone Number [address] [phone] CENTER after 03/16/2019 Insurance Payer Benefit Plan / Subscriber ID Effective Dates Phone Addre ss Type Group AETNA - AETNA MEDICARE [id number] 2013-Presen [phone] [address] MEDICARE MGD HMO POS PPO t 2 [id number] [place] [address] CDC REVIEW CDC REVIEW [id number] 2020-[place] [address] Advance Directives For more information, please contact: [phone] Code Status Date Activated Date Inactivated Comments Full Code 02/11/2020 10:24 PM 02/15/2020 6:38 PM This code status was determined by: Patient Full Code 02/13/2014 10:17 AM 02/13/2014 6:26 PM This code status was determined by: Patient
[2020-03-16] MEDS ORDERED: NA CHLORIDE 0.9% 1,000 ML ONE (09:49)
[2020-03-16] MEDS ORDERED: ACETAMINOPHEN 500 MG TAB ONE (09:50)
--- OUTSIDE RECORDS SUMMARY | 2020-03-16 10:03 | XMS REPORT | Continuity of Care Document ---
:1945 Author Organization [facility] [employer] Information [employer] Care Team Providers Name Role Phone [facility] [employer] Information [employer] Unavailable Un available Problems Problem Status Onset Classification Date Comments Sourc e Date Reported MYASTHENIA GRAVIS Active [facility] WITH ACUTE 020 Medical C enter EXACERBATIO C-7,T-4 Active [facility] FX,ESOPHAGEAL TEAR 020 M edical Center MYASTHENIA GRAVIS Active [facility] WEAKNESS 019 Medical Ce nter MYASTHENIA GRAVIS Active [place] [address] Medical Ce nter Dorsalgia, [facility] unspecified 019 9 Medical Center DIABETIC Active [facility] 019 Medical Ce nter DYSPHAGIA Active [facility] 019 Medical Ce nter RESOLVED VISION Active [facility] emorial LOSS IN LEFT EYE 019 Cit y SLURRED SPEECH [place] Medical Ce [place]ter STROKE SYMPTOMS Active [facility] [place] 019 Medical Ce nter Benign neoplasm of Active Problem Data M ischer cerebral meninges 013 9 migrated Ne uro,[facility] (disorder) from [facility], OPID on 01/23/[facility]. [facility] ity BAD REACTION TO Active [facility] [place] MEDICATION 011 Medical C enter DEHYDRATION,PAIN Active [facility] CONTROL 011 Medical Ce nter LEG CRAMPS Active [facility] 011 Medical Ce nter DEHYDRATION Active [facility] 011 Medical Ce nter SDH Active 011 Rehabilita tion DM - Diabetes Active Problem [place] mellitus 011 1 Medical Ce nter HYDROCEPHALUS Active [place] 011 Medical Ce nter BRAIN MASS Active 011 Rehabilita tion BRAIN MASS/AWAKE Active [place] [address] Medical Ce nter LIFE FLIGHT Active [place] [address] Medical Ce nter Altered mental Active Problem Misch er status (finding) 9 Fran ro,[facility], [place] Kelly, [facility] 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 Mis binta eye (disorder) 0 [facility] ,[facility], [place] Azul, [place] Kelly,M [facility] Coronary Active Problem Mischer arteriosclerosis 0 Fran ro,[facility] (disorder) [facility], [place] Azul, [place] Kelly, [facility] Craniotomy Active Problem Mischer (procedure) 9 [facility], [place] Kelly, [facility] Diabetes mellitus Resolved Problem Mi edwardo (disorder) 0 [facility], [place] Azul, [place] Kelly,M [facility] Heart failure Resolved Problem systilic Mische r (disorder) 0 [facility], [place] Azul, [place] Kelly, [facility] Hypertensive Active Problem Mischer disorder, systemic 0 N euro,[facility] arterial Medical (disorder) Center, [place] Azul, DOMON[place] Kelly, [facility] Hypothyroidism Active Problem Misch er (disorder) 0 [facility], [place] Azul, [place] Kelly,M [facility] Itching (finding) Active Problem Mi edwardo 9 [facility], [place] Kelly,M [facility] Intracranial Active Problem Mischer meningioma 9 [facility] (disorder) [facility], [place] Kelly,M [facility] Morbid obesity Resolved Problem Misch er (disorder) 0 [facility], [place] Azul, DOMON[place] Kelly,M [facility] Obstructive sleep Resolved Problem Mi edwardo apnea syndrome 0 [facility] ,[facility] (disorder) [facility], [place] Azul, DOMONIQUE Kelly,M [facility] Pain (finding) Active Problem Misch er 9 Neuro,[facility], [place],M [facility] itgasper Visual disturbance Active Problem ischer (disorder) 9 Neuro,[facility], [place] Kelly,M [facility] ity Illness, Memoria l unspecified 9 City Myasthenia gravis [facility] without (acute) 0 [facility] exacerbation Myasthenic crisis Resolved Problem [facility] (disorder) 0 Medical Center, [place] Azul Diabetes mellitus Resolved Problem [facility] type 2 (disorder) 0 [facility], [place] Azul Body mass index Active Problem [facility] 40+ - severely 0 Medic al obese (finding) Cent er, [place] Azul Myasthenia gravis Active Problem [facility] (disorder) 0 Medical Center, [place] Azul Recurrent falls Active Problem [facility] (finding) 0 Medical Center, [place] Azul Type II diabetes Active Problem [facility] mellitus 0 Medical [facility] Center, DOM[place] (finding) Jorge Alberto Altered mental Active Problem [place] status 1 Medical Ce nter Craniotomy Active Problem [place] [address] Medical Ce nter HTN - Hypertension Active Problem [place] [address] Medical Ce nter Lethargic Inactive Problem [place] [address] Medical Ce nter Meningioma of Active Problem [place] as brain 1 Medical Ce nter Visual disturbance Active Problem [place] [address] Medical Ce nter Itching Active Problem [place] [address] Medical Ce nter Pain Active Problem [place] [address] Medical Ce nter 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 0 Medic al Center level of cervical spinal cord, initial encounter Unspecified [facility] fracture of fourth 0 M edical Center thoracic vertebra, initial encounter for closed fracture Contusion of other [facility] specified 0 Medical Ce nter intrathoracic organs, initial encounter Unspecified [facility] fracture of second 0 M edical Center lumbar vertebra, initial encounter for closed fracture 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 0 M edical Center failure Delirium due to [place] known 0 Medical Ce nter physiological condition Acute [facility] posthemorrhagic 0 [facility] anemia Hydrocephalus, [place] unspecified 0 Medical Center Unspecified [facility] protein-calorie 0 [facility] malnutrition Body mass index [place] (BMI) 40.0-44.9, 0 Med ical [place] adult Ventricular [facility] tachycardia 0 Medical Center Alkalosis [facility] 0 Medical Ce nter Encephalopathy, [place] unspecified 0 Medical Center Gastrointestinal [facility] hemorrhage, 0 Medical Center unspecified Unspecified [facility] displaced fracture 0 M edical Center of sixth cervical vertebra, initial encounter for closed fracture Unspecified [facility] displaced fracture 0 M edical Center of seventh cervical vertebra, initial encounter for closed fracture Unspecified [facility] displaced fracture 0 M edical Center of fourth cervical vertebra, initial encounter for closed fracture Hypothyroidism, [place] unspecified 0 Medical Center 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 0 Medical C enter Age-related [facility] osteoporosis 0 Medical Center without current pathological fracture Hypertensive heart [facility] disease with heart 0 edical Center failure Dysphagia, [facility] unspecified 0 Medical Center Atherosclerotic [place] heart disease of 0 [facility] ical [place] enterprise coronary artery without angina pectoris Physical restraint [facility] status 0 Medical Ce nter Unspecified [facility] dementia without 0 [facility] ica Center behavioral disturbance longterm [facility] (current) [facility] systemic steroids Hypokalemia [facility] 0 Medical Ce nter Obstructive sleep [facility] apnea (adult) 0 Medica [facility] (pediatric) Other disorders of [facility] phosphorus 0 Medical C enter metabolism Constipation, [place] unspecified 0 Medical Center Fall on same level [facility] [place] from slipping, 0 Medic al Center tripping and stumbling without subsequent striking against object, initial encounter Other acute [facility] postprocedural 0 Medic al Center pain Acute pain due to [facility] trauma 0 Medical Ce nter Major depressive [facility] disorder, single 0 [facility] ical Center episode, unspecified Abrasion of right [facility] upper arm, initial 0 edical Center encounter Type 2 diabetes [place] mellitus with 0 Medica l Center hyperglycemia Morbid (severe) [place] obesity due to 0 Medic al Center excess calories Type 2 diabetes [place] mellitus with 0 Medica l Center hypoglycemia without coma Hyperlipidemia, [place] unspecified 0 Medical Center Chronic [facility] obstructive 0 Medical Center pulmonary disease, unspecified Hypomagnesemia [place] 0 Medical Ce nter Unqualified visual [facility] loss, right eye, 0 [facility] ical Center normal vision left eye Atherosclerosis of [facility] aorta 0 Medical Ce nter Spinal stenosis, [facility] cervical region 0 [facility] roger Center Repeated falls [facility] x[place] 0 Medical Ce nter Laceration without [facility] foreign body of 0 [facility] roger [place] right forearm, initial encounter Presence of [facility] cerebrospinal [facility] [place] fluid drainage device Personal history [facility] of sudden cardiac 0 Ri dical Center arrest History of falling [facility] [place] 0 Medical Ce nter Family history of [facility] diabetes mellitus 0 Ri dical [place] Personal history [facility] of benign neoplasm 0 edical [place] of the brain 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 EYE [facility] UNQUALIFIED VISUAL Active [facility] LOSS, LEFT EYE, [facility] ALEXIA UNSP DISP FX OF Active Madelyn cottrell [facility] CERVICAL [facility] ical Center VERTEBR Medications Medication Details Route Status Patient Ordering Order Source Instructions Provider Date lansoprazole 3 30 mg = 10 mL, Active [place] mg/mL oral PO, BID-Before 2019 Medica l suspension Meals, # 600 Center mL, 0 Refill(s) pregabalin 25 mg 25 mg = 1 cap, Active [place] oral capsule PO, Q8H-01, 0 2020 Medic al Refill(s) [place] Sulfamethoxazole 1 tab, PO, No Longer [place] 800 MG / [id number], X 1 Active 2019 Medical Trimethoprim 160 day, # 2 tab, C enter MG Oral Tablet 0 Refill(s) [Bactrim] predniSONE 20 mg 20 mg = 1 tab, Active [place] oral tablet PO, Daily, X 2020 Medical 21 day, # 21 Center tab, 0 Refill(s) Insulin Glargine 20 unit, Active [place] as 100 UNT/ML SUB-Q, BID, # 2020 Medical Injectable 10 mL, 0 Center Solution Refill(s) lisinopril 5 mg 5 mg = 1 tab, Active [facility] oral tablet GT, Daily, 0 2020 Medical Refill(s) [place] Sulfamethoxazole 1 tab, PO, Inactive [facility] 800 MG / [id number], 0 2020 Medical Trimethoprim 160 Refill(s) Cente r MG Oral Tablet [Bactrim] Insulin Glargine 15 unit, Inactive [place] 100 UNT/ML SUB-Q, BID, 0 2020 Medical Injectable Refill(s) [place] Solution thiamine 100 mg 200 mg = 2 Active [place] oral tablet tab, PO, 2020 Medical Daily, 0 Center Refill(s) rosuvastatin 10 mg 10 mg = 1 tab, Active [place] oral tablet PO, Bedtime, 0 2020 Medic al Refill(s) [place] predniSONE 20 mg 20 mg = 1 tab, Inactive [place] oral tablet PO, Daily, 0 2020 Medical Refill(s) [place] Calcium Chloride 500 mL, 500 Inactive [place] 0.0014 MEQ/ML / ml/hr, Infuse 2019 Ri dical Potassium Chloride Over: 1 hr, C enter 0.004 MEQ/ML / Route: IV, Sodium Chloride 500, Drug 0.103 MEQ/ML / form: INJ, Sodium Lactate ONCE, 0.028 MEQ/ML Priority: Injectable STAT, Dosing Solution Weight 84.545 kg, Start date: 02/27/20 7:19:00 CDT, Stop date: 02/27/20 7:19:00 CDT, 0 heparin Notes: porcine [place]er [place] heparin Active [address] [place] [address] heparin Route: MISC, Inactive [place] Drug form: [facility] Medical INJ, ONCE, Center Dosing Weight 84.545, kg, Please have at bedside to pack catheter post apheresis procedure., Start date: 02/25/20 10:44:00 CDT, Stop date: 02/25/20 10:44:00 CDT, 0 albumin human 5% 2,500 mL, Inactive [place] intravenous Route: IV, 2019 Medical solution Dosing Weight Center 84.545, kg, ONCE, Start date: 02/25/20 9:32:00 CDT, Stop date: 02/25/20 9:32:00 CDT, Indication: Plasmapheresis Calcium Gluconate 2.5 gm, Route: Inactive [place] IV, ONCE, 2019 Medical Dosing Weight Center 84.545, kg, Start date: 02/25/20 9:32:00 CDT, Stop date: 02/25/20 9:32:00 CDT Calcium Gluconate Notes: WASTE: Inactive [place] F/P - Sink; E [address] [facility] Trash Bin albumin human 5% Notes: LOT#: Inactive [facility] intravenous M 2019 Medic al solution fg: Center (Same as: Albuminar) "blood product derivative&quo t; WASTE: F/P - Red; E -Red MEDICATION WASTE Product Size: 25 gm Product Wasted: _0__ gm Sulfamethoxazole 1 tab, Route: No Longer [place] 800 MG / PO, Drug Form: 2019 Medical Trimethoprim 160 TAB, Dosing Mitch ter MG Oral Tablet Weight 84.545, [Bactrim] kg, [id number], Start date: 02/22/20 20:00:00 CDT, Stop date: 02/28/20 8:00:00 CDT, 0 insulin glargine 30 unit, No Longer [place] Route: SUB-Q, 2019 Medical Drug form: Center SOLN, BID, Start date: 02/22/20 9:00:00 CDT, Duration: 30 day, Stop date: 03/22/20 17:00:00 CDT, 0 Lactated Ringers 1,000 mL, No Longer [place] IV 1,000 mL Rate: 100 2019 Medical ml/hr, Infuse Center over: 10 hr, Route: IV, Dosing Weight 84.545 kg, Total Volume: 1,000, Start date: 02/22/20 7:37:00 CDT, Duration: 30 day, Stop date: 03/23/20 7:36:00 CDT, 1.91, m2, 0 Insulin Lispro Notes: (Same No Longer [place] as: Humalog) 2019 Medical Roll in palms Center of hands gently; Do not shake vigorously. WASTE: F/P - Black; E - Municipal Trash Bin Stable for 28 days at room temperature. Expires in days from Date Insulin Glargine 10 unit, Inactive [place] 100 UNT/ML Route: SUB-Q, 2019 Medical Injectable ONCE, Dosing Center Solution [Lantus] Weight 84.545, kg, Start date: 02/21/20 21:00:00 CDT, Stop date: 02/21/20 21:00:00 CDT D-50-W 12.5 gm, 25 No Longer [place] mL, Route: 2019 Medical IVP, Drug Center Form: INJ, Dosing Weight 84.545, kg, PRN, PRN Blood Glucose Results, Start date: 02/21/20 20:57:00 CDT, Duration: 30 day, Stop date: 03/22/20 20:56:00 CDT, 0 Glucagon 1 mg, Route: No Longer [place] IM, Drug form: Active 2019 Medical PDR/INJ, PRN, Center Dosing Weight 84.545, kg, PRN Blood Glucose Results, Start date: 02/21/20 20:57:00 CDT, Duration: 30 day, Stop date: 03/22/20 20:56:00 CDT, 0 Insulin Lispro Notes: (Same No Longer [place] as: Humalog) Active 2019 Medical Roll in palms Center of hands gently; Do not shake vigorously. WASTE: F/P - Black; E - Municipal Trash Bin Stable for 28 days at room temperature. Expires in days from Date Insulin regular Notes: (Same Inactive [facility] as: Humulin R) 2019 Medical Roll in palms Center of hands gently; Do not shake vigorously. WASTE: F/P - Black; E - Municipal Trash Bin Stable for 31 days at room temperature Expires in days from Date Insulin regular Notes: (Same Inactive [facility] as: Humulin R) 2019 Medical Roll in palms Center of hands gently; Do not shake vigorously. WASTE: F/P - Black; E - Municipal Trash Bin Stable for 31 days at room temperature Expires in days from Date albumin human 5% Notes: LOT#: Inactive [facility] intravenous M 2019 Medic al solution fg: Center (Same as: Albuminar) "blood product derivative&quo t; WASTE: F/P - Red; E -Red MEDICATION WASTE Product Size: 25 gm Product Wasted: _0__ gm Calcium Gluconate Notes: WASTE: Inactive [facility] F/P - Sink; E 2019 Medical - Municipal [facility] Trash Bin albumin human 5% Notes: LOT#: Inactive [facility] intravenous M 2019 Medic al solution fg: Center (Same as: Albuminar) "blood product derivative&quo t; WASTE: F/P - Red; E -Red MEDICATION WASTE Product Size: 25 gm Product Wasted: ___ gm Lyrica Notes: (Same No Longer [place] as: Lyrica) Active 2019 Medical Center [place] 500 Notes: 500mg [place] elemental 2019 [facility] calcium = Center 1250mg calcium carbonate. Contains 500mg elemental calcium. (Same As: OsCal 500) Calcium Gluconate 2 tab, Route: Inactive [place] 650 MG Oral Tablet PO, ONCE, 2019 Med ical Dosing Weight Center 84.545, kg, Start date: 02/20/20 7:03:00 CDT, Stop date: 02/20/20 7:03:00 CDT remove patch 1 patch, No Longer [place] Route: TOP, Active 2019 [facility] Bedtime, Drug Center form: ERFILM, Start date: 02/19/20 21:00:00 CDT, Duration: 30 day, Stop date: 03/19/20 21:00:00 CDT, 0 albumin human 5% Notes: LOT#: Inactive [facility] intravenous M 2019 Medic al solution fg: Center (Same as: Albuminar) "blood product derivative&quo t; WASTE: F/P - Red; E -Red MEDICATION WASTE Product Size: 25 gm Product Wasted: _0__ gm Diphenhydramine 50 mg, Route: Inactive [facility] IVP, ONCE, 2019 Medical Dosing Weight Center 84.545, kg, Start date: 02/19/20 12:00:00 CDT, Stop date: 02/19/20 12:00:00 CDT Calcium Gluconate Notes: WASTE: Inactive [place] F/P - Sink; E 2019 [facility] Trash Bin albumin human 5% Notes: LOT#: Inactive [facility] intravenous M 2019 Medic al solution fg: Center (Same as: Albuminar) "blood product derivative&quo t; WASTE: F/P - Red; E -Red MEDICATION WASTE Product Size: 25 gm Product Wasted: _0__ gm Lidocaine 0.05 1 patch, No Longer [place] MG/MG Transdermal Route: TOP, Active 2019 Me dical Patch Daily, Drug Center form: FILM, Start date: 02/19/20 9:00:00 CDT, Duration: 30 day, Stop date: 03/19/20 9:00:00 CDT, 0 rosuvastatin Notes: (Same No Longer [place] As: Crestor) Active 2019 [facility] Insulin regular Notes: (Same No Longer [facility] as: Humulin R) 2019 Medical Roll in palms Center of hands gently; Do not shake vigorously. WASTE: F/P - Black; E - Municipal Trash Bin Stable for 31 days at room temperature Expires in days from Date insulin glargine 20 unit, 0.2 No Longer [place] mL, Route: 2019 Medical SUB-Q, Drug Center form: SOLN, BID, Start date: 02/18/20 17:00:00 CDT, Duration: 30 day, Stop date: 03/19/20 9:00:00 CDT, 0 insulin detemir 15 unit, Inactive [place] Route: SUB-Q, 2019 Medical BID, Dosing Center Weight 84.545, kg, Start date: 02/18/20 16:06:00 CDT, Duration: 30 day, Stop date: 03/19/20 9:00:00 CDT Dextrose 50% 12.5 gm, 25 [place]er [place] Syringe (D50W) mL, Route: Active 2019 Medica l IVP, Drug Center Form: INJ, Dosing Weight 84.545, kg, PRN, PRN Blood Glucose Results, Start date: 02/18/20 16:05:00 CDT, Duration: 30 day, Stop date: 03/19/20 16:04:00 CDT, 0 Glucagon 1 mg, Route: No Longer [place] IM, Drug form: Active 2019 Medical PDR/INJ, PRN, Center Dosing Weight 84.545, kg, PRN Blood Glucose Results, Start date: 02/18/20 16:05:00 CDT, Duration: 30 day, Stop date: 03/19/20 16:04:00 CDT, 0 Insulin regular Notes: (Same No Longer [facility] as: Humulin R) Active 2019 Medical Roll in [place] Center of hands gently; Do not shake vigorously. WASTE: F/P - Black; E - Municipal Trash Bin Stable for 31 days at room temperature Expires in days from Date Dextrose 50% 25 mL, Route: Inactive [place] Syringe (D50W) IVP, Dosing 2019 Medic al Weight 84.545, Center kg, PRN, PRN Blood Glucose Results, Start date: 02/18/20 6:26:00 CDT, Duration: 30 day, Stop date: 03/19/20 6:25:00 CDT Glucagon 1 mg, Route: Inactive [place] IM, PRN, 2019 Medical Dosing Weight Center 84.545, kg, PRN Blood Glucose Results, Start date: 02/18/20 6:26:00 CDT, Duration: 30 day, Stop date: 03/19/20 6:25:00 CDT Insulin regular 1 unit, Route: Inactive [place] SUB-Q, 2019 Medical TID-Before Center Meals, Dosing Weight 84.545, kg, PRN Blood Glucose Results, Start date: 02/18/20 6:26:00 CDT, Duration: 30 day, Stop date: 03/19/20 6:25:00 CDT potassium chloride Notes: (Same Inactive [place] 20 mEq oral as: K-Dur ) 2019 Medica l tablet, extended "Do Not Crush" Center release (KCL) Give with food and full glass of water For patients unable to swallow tablet, dissolve in one half glass of water. Allow about 2 minutes for the tablets to disintegrate. Stir before giving to prepare slurry and administer. Please exclude Patient’ s with feeding tube less than 14 [place] (Dobhoff, J-tube etc) and pediatric and patients. Tylenol Notes: Do not No Longer [place] exceed 4 Active 2019 Medical gm/day. (Same Center as: Tylenol) Calcium Gluconate Notes: WASTE: Inactive [place] F/P - Sink; E 2019 [facility] Center Trash Bin albumin human 5% Notes: LOT#: Inactive [facility] intravenous M 2019 Medic al solution fg: Center (Same as: Albuminar) "blood product derivative&quo t; WASTE: F/P - Red; E -Red MEDICATION WASTE Product Size: 25 gm Product Wasted: ___ gm Pyridostigmine 90 mg, Route: Inactive [place] GT, Drug form: 2019 Medical TAB, Q8H, Center Dosing Weight 84.545, kg, Start date: 02/17/20 16:00:00 CDT, Duration: 30 day, Stop date: 03/18/20 8:00:00 CDT, 0 Mestinon Notes: (Same No Longer [place] as: Mestinon) Active [address] [place] [address] Center pyridostigmine Notes: (Same No Longer [facility] as: Mestinon) Active 2019 Medical 30 mg = 1/2 x Center 60 mg TAB clonazePAM Notes: (Same No Longer [place] as KlonoPIN Active 2020 Medical ODT) Center Hazardous Drug Group 3:Reproductive risk Hazardous Drug -- Refer to safe handling procedure PPE Matrix Clonazepam Notes: (Same [place] as KlonoPIN 2020 Medical ODT) Center Hazardous Drug Group 3:Reproductive risk Hazardous Drug -- Refer to safe handling procedure PPE Matrix Furosemide 20 MG Notes: (Same No Longer [facility] Oral Tablet as: Lasix) Active 2019 Medical May cause GI Center upset. Give with food or milk. Lisinopril Notes: (Same No Longer [place] as: Prinivil, Active 2020 [facility] Zestril) Center Sertraline Notes: (Same No Longer [place] as: Zoloft) Active 2019 [facility] Prednisone Notes: Take No Longer [place] with food. Active 2019 [facility] Thiamine Notes: (Same No Longer [place] As: Vitamin Active 2019 [facility] B1) Center Thyroxine Notes: Take 1 No Longer [place] hour before or [address] [place] [address] 2 hours after Center meal; Enteral feeds may interefere with the absorption of this medication. (Same as:Synthroid) Dextrose 50% 12.5 gm, 25 [place] Longer [place] Syringe (D50W) mL, Route: 2019 Medica l IVP, Drug Center Form: INJ, Dosing Weight 84.545, kg, PRN, PRN Blood Glucose Results, Start date: 02/17/20 0:59:00 CDT, Duration: 30 day, Stop date: 03/18/20 0:58:00 CDT, 0 Glucagon 1 mg, Route: No Longer [place] IM, Drug form: 2019 [facility] PDR/INJ, PRN, Center Dosing Weight 84.545, kg, PRN Blood Glucose Results, Start date: 02/17/20 0:59:00 CDT, Duration: 30 day, Stop date: 03/18/20 0:58:00 CDT, 0 Insulin Lispro Notes: (Same No Longer [place] as: Humalog) 2019 [facility] Roll in palms Center of hands gently; Do not shake vigorously. WASTE: F/P - Black; E - Municipal Trash Bin Stable for 28 days at room temperature. Expires in days from Date Dextrose 50% 25 mL, Route: Inactive [place] Syringe (D50W) IVP, Dosing 2019 Medic al Weight 84.545, Center kg, PRN, PRN Blood Glucose Results, Start date: 02/17/20 0:58:00 CDT, Duration: 30 day, Stop date: 03/18/20 0:57:00 CDT Glucagon 1 mg, Route: Inactive [place] IM, PRN, 2019 Medical Dosing Weight Center 84.545, kg, PRN Blood Glucose Results, Start date: 02/17/20 0:58:00 CDT, Duration: 30 day, Stop date: 03/18/20 0:57:00 CDT Insulin Lispro 2 unit, Route: Inactive [place] SUB-Q, Sliding 2020 Medical Scale, Dosing Center Weight 84.545, kg, PRN Blood Glucose Results, Start date: 02/17/20 0:58:00 CDT, Duration: 30 day, Stop date: 03/18/20 0:57:00 CDT Pyridostigmine Notes: (Same No Longer [place] as: Mestinon) Active 2020 [facility] Prednisone Notes: Take No Longer [place] with food. Active 2020 [facility] Dextrose 5% in 1,000 mL, [place] Longer [place] Water IV 1,000 mL Rate: 50 Active 2019 Medic al ml/hr, Infuse Center over: 20 hr, Route: IV, Dosing Weight 84.545 kg, Total Volume: 1,000, Start date: 02/16/20 13:53:00 CDT, Duration: 30 day, Stop date: 03/17/20 13:52:00 CDT, 1.91, m2, 0 Pyridostigmine 60 mg = 1 tab, Active [place] 60 MG Oral PO, TID, 0 2019 Ri dical Tablet [Mestinon] Refill(s) Cent er Clonazepam Notes: (Same No Longer [place] as As: KlonoPIN) Active 2019 [facility] Hazardous Drug Center Group 3:Reproductive risk Hazardous Drug -- Refer to safe handling procedure PPE Matrix Acetaminophen 500 1,000 mg = 2 No Longer [place] MG Oral Tablet tab, PO, TID, Active 2019 Med ical [Tylenol] 0 Refill(s) [place] Docusate Sodium 50 Notes: (Same Inactive [place] MG / sennosides, as Senokot-S) 2019 edical [facility] 8.6 MG Oral Equiv. to Center Tablet Cassidy-Colace. Pyridostigmine Notes: (Same Inactive [place] as: Mestinon) 2020 [facility] Furosemide 20 MG Notes: (Same Inactive [facility] Oral Tablet as: Lasix) [facility] Medical May cause GI Center upset. Give with food or milk. Lisinopril Notes: (Same Inactive [place] as: Prinivil, 2019 [facility] Zestril) [place] Sertraline Notes: (Same Inactive s as: Zoloft) [address] [place] [address] thiamine 100 mg 200 mg = 2 No Longer [place] oral tablet tab, PO, Daily Active 2019 [facility] Center 3 ML Insulin, See Active [place] Aspart, Human 100 Instructions, 2019 Medical UNT/ML Pen 10 unit SUB-Q Center Injector [NovoLog] TID-Before Meals and at bedtime, 0 Refill(s) 3 ML insulin 30 unit, No Longer [place] detemir 100 UNT/ML SUB-Q, BID, 0 Active 2019 [facility] Prefilled Syringe Refill(s) Cent er [Levemir] Thyroxine Notes: Take 1 Inactive [facility] s hour before or [address] [place] [address] 2 hours after Center meal; Enteral feeds may interefere with the absorption of this medication. (Same as:Synthroid) heparin sodium, Notes: porcine No Longer [place] porcine 2500 heparin Active 2019 [facility] UNT/ML Injectable Center Solution rosuvastatin Notes: (Same No Longer [place] As: Crestor) Active [address] [place] [address] Dextrose 50% 12.5 gm, 25 [place]er [place] Syringe (D50W) mL, Route: 2019 Medica l IVP, Drug Center Form: INJ, Dosing Weight 84.545, kg, PRN, PRN Blood Glucose Results, Start date: 02/15/20 19:49:00 CDT, Duration: 30 day, Stop date: 03/16/20 19:48:00 CDT, 0 Glucagon 1 mg, Route: No Longer [place] IM, Drug form: 2019 [facility] PDR/INJ, PRN, Center Dosing Weight 84.545, kg, PRN Blood Glucose Results, Start date: 02/15/20 19:49:00 CDT, Duration: 30 day, Stop date: 03/16/20 19:48:00 CDT, 0 Insulin Lispro Notes: (Same No Longer [place] as: Humalog) Active 2019 Medical Roll in palms Center of hands gently; Do not shake vigorously. WASTE: F/P - Black; E - Municipal Trash Bin Stable for 28 days at room temperature. Expires in days from Date Amlodipine Notes: (Same No Longer [place] as as: Norvasc) Active 2019 [facility] Potassium Chloride 10 mEq = 1 Active [place] 10 MEQ Extended tab, PO, 2019 Medical Release Tablet Daily, # 30 Cente r [Klor-Con] tab, 0 Refill(s), other amLODIPine 5 mg 5 mg = 1 tab, Active [facility] oral tablet PO, Daily, # 2019 Medical 30 tab, 0 Center Refill(s), Pharmacy: [facility]/pharmacy #[id number], 149.86, cm, 12/06/19 15:12:00 CDT, Height, 90, kg, 11/23/19 2:25:00 CDT, Weight insulin lispro 100 2 unit, SUB-Q, Active [facility] units/mL TID-Before 2019 Medical injectable Meals, PRN Center solution Blood Glucose Results, before each meal, FOR BLOOD SUGAR 150-199, # 3 mL, 0 Refill(s), other lansoprazole 3 30 mg = 10 mL, Active [facility] mg/mL oral PO, BID-Before 2019 Medica l suspension Meals, # 600 Center mL, 0 Refill(s), other Lidocaine 0.04 1 patch, TOP, Active [facility] MG/MG Medicated Daily, X 10 2019 Medi roger Patch day, # 10 Center patch, 0 Refill(s), other 3 ML insulin 14 unit, Active [facility] detemir 100 UNT/ML SUB-Q, BID, # 2020 Medical Prefilled Syringe 3 mL, 0 Center [Levemir] Refill(s), other D50W (bolus) IV 12.5 gm, 25 No Longer [facility] mL, Route: 2019 Medical IVP, Drug Center Form: INJ, Dosing Weight 90, kg, PRN, PRN Blood Glucose Results, Start date: 12/19/19 8:19:00 CDT, Duration: 30 day, Stop date: 01/18/20 8:18:00 CDT, 0 Glucagon 1 mg, Route: No Longer [place] IM, Drug form: Active 2020 Medical PDR/INJ, PRN, Center Dosing Weight 90, kg, PRN Blood Glucose Results, Start date: 12/19/19 8:19:00 CDT, Duration: 30 day, Stop date: 01/18/20 8:18:00 CDT, 0 Insulin Lispro Notes: (Same No Longer [place] as: Humalog) Active 2020 Medical Roll in palms Center of hands gently; Do not shake vigorously. WASTE: F/P - Black; E - Municipal Trash Bin Stable for 28 days at room temperature. Expires in days from Date D50W (bolus) IV 12.5 gm, 25 No Longer [place] mL, Route: 2019 Medical IVP, Drug Center Form: INJ, Dosing Weight 90, kg, PRN, PRN Blood Glucose Results, Start date: 12/19/19 8:18:00 CDT, Duration: 30 day, Stop date: 01/18/20 8:17:00 CDT, 0 Glucagon 1 mg, Route: No Longer [place] IM, Drug form: 2019 Medical PDR/INJ, PRN, Center Dosing Weight 90, kg, PRN Blood Glucose Results, Start date: 12/19/19 8:18:00 CDT, Duration: 30 day, Stop date: 01/18/20 8:17:00 CDT, 0 Insulin Lispro Notes: (Same No Longer [place] as: Humalog) Active 2019 Medical Roll in palms Center of hands gently; Do not shake vigorously. WASTE: F/P - Black; E - Municipal Trash Bin Stable for 28 days at room temperature. Expires in days from Date Potassium Chloride Notes: (Same Inactive [place] 1.33 MEQ/ML Oral as: Potassium 2020 M edical Solution Chloride) Center Dextrose 50% 12.5 gm, 25 [place]er [place] Syringe (D50W) mL, Route: Active 2020 Medica l IVP, Drug Center Form: INJ, Dosing Weight 90, kg, PRN, PRN Blood Glucose Results, Start date: 12/16/19 15:42:00 CDT, Duration: 30 day, Stop date: 01/15/20 15:41:00 CDT, 0 Glucagon 1 mg, Route: No Longer [facility] IM, Drug form: 2019 Medical PDR/INJ, PRN, Center Dosing Weight 90, kg, PRN Blood Glucose Results, Start date: 12/16/19 15:42:00 CDT, Duration: 30 day, Stop date: 01/15/20 15:41:00 CDT, 0 Insulin Lispro Notes: (Same No Longer [facility] as: Humalog) 2019 Medical Roll in palms Center of hands gently; Do not shake vigorously. WASTE: F/P - Black; E - Municipal Trash Bin Stable for 28 days at room temperature. Expires in days from Date potassium Notes: (Same No Longer [facility] phosphate-sodium as: Phos-NaK) 2019 M edical phosphate 250 Each 1.5 gm Center mg-280 mg-160 mg pkt has 250mg oral powder for phosphorous. reconstitution Mix w/2.5oz water and stir. Potassium Chloride Notes: (Same Inactive [facility] as: KCL) 2019 Medical Infuse over 2 Center hours. Morphine Notes: (Same No Longer [facility] as:MORPhine Active 2019 Medical Sulfate) Center potassium Notes: (Same No Longer [facility] phosphate as: K Active 2019 Medical Phosphate.) Center Do not infuse phosphorous concurrently in the same line as TPN or IVF that contains calcium. For double lumen central lines, phosphorous may be infused in a separate lumen from TPN. 1 mMol phoshate has 1.47 mEq potassium Infuse over 4 hours insulin, isophane Notes: (Same No Longer [facility] as: Humulin N) 2019 Medical Roll in palms Center of hands gently; Do not shake vigorously. WASTE: F/P - Black; E - Municipal Trash Bin Stable for 31 days at room temperature Expires in days from Date lansoprazole Notes: Take 1 No Longer [place] hour before or Active 2019 Medical 2 hours after Center meal; Expires in 14 days. Shake well before use. (Same as:Prevacid) Compounded Product - formulation not commercially available insulin, isophane Notes: (Same Inactive as: Humulin N) 2019 Medical Roll in palms Center of hands gently; Do not shake vigorously. WASTE: F/P - Black; E - Municipal Trash Bin Stable for 31 days at room temperature Expires in days from Date Albuterol 0.833 Notes: (Same No Longer H [place] MG/ML / as: Duoneb) 2019 Medical Ipratropium Center [place] 0.167 MG/ML Inhalant Solution Furosemide Notes: (Same Inactive s as: Lasix) 2020 Medical MEDICATION Center WASTE Product Size: 40 mg Product Wasted: ___ mg Potassium Chloride Notes: (Same Inactive [place] as: Potassium 2019 Medical Chloride) Center Furosemide Notes: (Same Inactive s as: Lasix) 2019 Medical MEDICATION Center WASTE Product Size: 40 mg Product Wasted: ___ mg Lovenox Notes: (Same No Longer as: Lovenox) Active 2020 [facility] Center Magnesium Sulfate Notes: WASTE: Inactive [place] F/P - Sink; E 2019 Medical - Municipal Center Trash Bin potassium Notes: (Same No Longer s phosphate as: K Active 2019 Medical Phosphate.) Center Do not infuse phosphorous concurrently in the same line as TPN or IVF that contains calcium. For double lumen central lines, phosphorous may be infused in a separate lumen from TPN. 1 mMol phoshate has 1.47 mEq potassium Infuse over 4 hours Clonazepam Notes: (Same No Longer [place] As: KlonoPIN) Active 2019 [facility] Hazardous Drug Center Group 3:Reproductive risk Hazardous Drug -- Refer to safe handling procedure PPE Matrix Lorazepam Notes: (Same Inactive [place] as: Ativan) 2020 Medical [facility] Notes: Infuse No Longer [place] over 15 Active 2019 Medical minutes Do Center not exceed 4gm/day of acetaminophen MEDICATION WASTE Product Size: 1000 mg Product Wasted: ___ mg Lidocaine Notes: (Same [place] Longer [place] Hydrochloride 0.02 as: Xylocaine Active 2019 Medical MG/MG Topical Gel Jelly, Glydo) Center Morphine Notes: (Same No Longer [place] as:MORPhine 2019 Medical Sulfate) Center Blistex topical Notes: Same No Longer [place] ointment as: Blistex Active 2019 Medical Center LR IV 1,000 mL 1,000 mL, [place] Longer [place] Rate: 75 2019 Medical ml/hr, Infuse Center over: 13.3 hr, Route: IV, Dosing Weight 90 kg, Total Volume: 1,000, Start date: 12/11/19 0:31:00 CDT, Duration: 1 day, Stop date: 12/12/19 0:30:00 CDT, 1.98, m2, 0 pantoprazole Notes: For IV No Longer [place] push Active 2019 [facility] reconstitute Center with 10 ml 0.9% sodium chloride and push over 2 minutes. (Same as: Protonix) Lovenox Notes: (Same No Longer [place] as: Lovenox) [address] Lanolin 0.157 Notes: (Same No Longer [place] MG/MG / Menthol as: 2019 Medical 0.0044 MG/MG / Calmoseptine) [address] ter Petrolatum 0.24 MG/MG / Zinc Oxide 0.206 MG/MG Topical Ointment [Calmoseptine] insulin, isophane Notes: (Same No Longer [place] as: Humulin N) 2019 Medical Roll in palms Center of hands gently; Do not shake vigorously. WASTE: F/P - Black; E - Municipal Trash Bin Stable for 31 days at room temperature Expires in days from Date Lasix Notes: (Same No Longer [place] as: Lasix) Active 2019 Medical May cause GI Center upset. Give with food or milk. Dextrose 50% 12.5 gm, 25 [place]er [place] Syringe (D50W) mL, Route: 2019 Medica l IVP, Drug Center Form: INJ, Dosing Weight 90, kg, PRN, PRN Blood Glucose Results, Start date: 12/10/19 11:56:00 CDT, Duration: 30 day, Stop date: 01/09/20 11:55:00 CDT, 0 Glucagon 1 mg, Route: No Longer [place] IM, Drug form: 2019 Medical PDR/INJ, PRN, Center Dosing Weight 90, kg, PRN Blood Glucose Results, Start date: 12/10/19 11:56:00 CDT, Duration: 30 day, Stop date: 01/09/20 11:55:00 CDT, 0 Insulin Lispro Notes: (Same No Longer [place] as: Humalog) 2019 Medical Roll in palms Center of hands gently; Do not shake vigorously. WASTE: F/P - Black; E - Municipal Trash Bin Stable for 28 days at room temperature. Expires in days from Date Dextrose 5% with 1,000 mL, No Longer [place] 0.45% NaCl IV Rate: 75 Active 2019 Medical 1,000 mL ml/hr, Infuse Center over: 13.3 hr, Route: IV, Dosing Weight 90 kg, Total Volume: 1,000, Start date: 12/09/19 19:56:00 CDT, Duration: 30 day, Stop date: 01/08/20 19:55:00 CDT, 1.98, m2, 0 pantoprazole Notes: For IV No Longer [place] additive 80 mg + push Active 2019 Medical Sodium Chloride reconstitute [address] ter 0.9% IV 100 mL with 10 ml 0.9% sodium chloride and push over 2 minutes. (Same as: Protonix) pantoprazole Notes: For IV Inactive [place] push 2019 Medical reconstitute Center with 10 ml 0.9% sodium chloride and push over 2 minutes. (Same as: Protonix) Acetaminophen Notes: Do not No Longer [place] exceed 4 Active 2020 Medical gm/day. (Same Center as: Tylenol) Amlodipine Notes: (Same No Longer [place] as: Norvasc) Active 2020 Medical Center Ramipril Notes: (Same No Longer [place] as:Altace) Active 2020 Medical [place] Dextrose 50% in 12.5 gm, 25 No Longer [place] Water IV mL, Route: Active 2019 Medical IVP, Drug Center Form: INJ, Dosing Weight 90, kg, PRN, PRN Blood Glucose Results, Start date: 12/07/19 12:21:00 CDT, Duration: 30 day, Stop date: 01/06/20 12:20:00 CDT, 0 Glucagon 1 mg, Route: No Longer [place] IM, Drug form: 2019 Medical PDR/INJ, PRN, Center Dosing Weight 90, kg, PRN Blood Glucose Results, Start date: 12/07/19 12:21:00 CDT, Duration: 30 day, Stop date: 01/06/20 12:20:00 CDT, 0 Insulin Lispro Notes: (Same No Longer [place] as: Humalog) Active 2020 Medical Roll in palms Center of hands gently; Do not shake vigorously. WASTE: F/P - Black; E - Municipal Trash Bin Stable for 28 days at room temperature. Expires in days from Date Prednisone Notes: Take No Longer [place] with food. Active 2020 [facility] Potassium Chloride Notes: (Same Inactive [place] as: Potassium 2020 [facility] Chloride) Center Lovenox Notes: (Same No Longer [place] as: Lovenox) Active 2020 Medical Center Lasix Notes: (Same Inactive [place] as: Lasix) 2020 Medical Center Tylenol Notes: Do not No Longer [place] exceed 4 Active 2020 Medical gm/day. (Same Center as: Tylenol) Dextrose 50% 12.5 gm, 25 [place] Longer [place] Syringe (D50W) mL, Route: Active 2019 Medica l IVP, Drug Center Form: INJ, Dosing Weight 90, kg, PRN, PRN Blood Glucose Results, Start date: 12/06/19 12:15:00 CDT, Duration: 30 day, Stop date: 01/05/20 12:14:00 CDT, 0 Glucagon 1 mg, Route: No Longer [facility] IM, Drug form: Active 2020 Medical PDR/INJ, PRN, Center Dosing Weight 90, kg, PRN Blood Glucose Results, Start date: 12/06/19 12:15:00 CDT, Duration: 30 day, Stop date: 01/05/20 12:14:00 CDT, 0 Insulin regular Notes: (Same No Longer [facility] as: Humulin R) Active 2020 Medical Roll in palms Center of hands gently; Do not shake vigorously. WASTE: F/P - Black; E - Municipal Trash Bin Stable for 31 days at room temperature Expires in days from Date Famotidine 20 MG Notes: (Same No Longer [facility] Oral Tablet as: Pepcid) Active 2020 [facility] [Pepcid] Center chlorhexidine Notes: (Same No Longer [facility] gluconate 1.2 As: Peridex) Active 2020 Medic al MG/ML Mouthwash Center ocular lubricant Notes: (Same No Longer [facility] as: Active 2020 [facility] Lacri-Lube, Center Puralube, Duratears Naturale, Artificial Tears, and Tears Again ) chlorhexidine Notes: (Same No Longer [facility] gluconate 1.2 As: Peridex) Active 2020 Medic al MG/ML Mouthwash Center Hydrocortisone Notes: (Same No Longer [facility] as: Active 2020 [facility] Solu-CORTEF) Center Neurontin Notes: ([facility]: [facility]) Active [address] [place] [address] Center NS 1,000 mL 1,000 mL, No Longer [facility] Rate: 40 Active 2020 [facility] ml/hr, Infuse Center over: 25 hr, Route: IV, Dosing Weight 90 kg, Total Volume: 1,000, Start date: 12/05/19 20:50:00 CDT, Duration: 30 day, Stop date: 01/04/20 20:49:00 CDT, 1.98, m2, 0 Baclofen 5 mg, 1 tab, No Longer Route: GT, Active 2019 Medical Drug form: Center TAB, Q8H, Dosing Weight 90, kg, PRN Muscle Spasms, Start date: 12/05/19 20:45:00 CDT, Duration: 30 day, Stop date: 01/04/20 20:44:00 CDT, 0 Tramadol Notes: Not to [place] Longer [place] exceed Active 2020 Medical 400mg/day. Center (Same As: Ultram) Fentanyl Notes: (Same Inactive as: Sublimaze) 2019 Medical Preservative Center free. Vancomycin 2001 mg: No Longer infuse over Active 2019 Medical 2.5 hours For Center adult patients only: Round to nearest 250 mg per Medical Staff approval MEDICATION WASTE Product Size: 1000 mg Product Wasted: ___ mg Hydralazine Notes: (Same Inactive [place] as: 2019 Medical Apresoline) Center Push over 5 minutes Labetalol 10 mg, 2 mL, Inactive Route: IVP, 2019 Medical Drug form: Center INJ, Q5Min, Dosing Weight 90, kg, PRN Elevated BP, Start date: 12/05/19 17:22:00 CDT, Duration: 5 doses or times, Stop date: 12/06/19 0:00:00 CDT, 0 Acetaminophen Notes: Infuse Inactive [place] over 15 2020 Medical minutes Do Center not exceed 4gm/day of acetaminophen MEDICATION WASTE Product Size: 1000 mg Product Wasted: ___ mg Fentanyl Notes: (Same Inactive as: Sublimaze) 2019 Medical Preservative Center free. Flumazenil Notes: (Same Inactive s as: Romazicon) 2020 Medical Center Naloxone Notes: Same as Inactive s Narcan 2019 Medical Center Ondansetron Notes: (Same Inactive [place] as: Zofran) 2019 Medical MEDICATION Center WASTE Product Size: 4 mg Product Wasted: ___ mg propofol 10 mg/mL Notes: If Inactive (Titrate.) IV Diprivan - 2019 Medical 1,000 mg change bottle Center & tubing every 12 hr Per state nursing law propofol can only be given by a nurse if patient is intubated or being intubated (unless the nurse is a E[employer]IC [employer] TWISTER HELPER). Same as: Diprivan norepinephrine Route: IV, Inactive [place] (ANES) 10 Drug form: 2019 Medical microgram INJ, Start Center date: 12/05/19 15:20:00 CDT, Stop date: 12/05/19 16:20:00 CDT norepinephrine Route: IV, Inactive [place] (ANES) Drug form: 2019 Medical INJ, ONCE, Center Stop date: 12/05/19 15:10:00 CDT Insulin regular Route: IV, Inactive [place] (ANES) Drug form: 2019 Medical INJ, ONCE, Center Stop date: 12/05/19 14:40:00 CDT calcium gluconate Route: IV, Inactive [place] (ANES) Drug form: 2019 Medical INJ, ONCE, Center Stop date: 12/05/19 11:21:00 CDT magnesium sulfate Route: IV, Inactive [place] (ANES) 500 mg Drug form: 2019 Medical INJ, Start Center date: 12/05/19 10:56:00 CDT, Stop date: 12/05/19 11:56:00 CDT phenylephrine Route: IV, Inactive [place] as (ANES) 100 Drug form: 2019 Medical microgram INJ, Start Center date: 12/05/19 10:46:00 CDT, Stop date: 12/05/19 11:46:00 CDT lidocaine (ANES) Route: IV, Inactive [place] Drug form: 2019 Medical INJ, ONCE, Center Stop date: 12/05/19 10:35:00 CDT phenylephrine Route: IV, Inactive [place] as (ANES) Drug form: 2019 Medical INJ, ONCE, Center Stop date: 12/05/19 10:25:00 CDT propofol (ANES) Route: IV, Inactive [place] Drug form: 2019 Medical INJ, ONCE, Center Stop date: 12/05/19 9:44:00 CDT succinylcholine Route: IV, Inactive [place] (ANES) Drug form: 2019 Medical INJ, ONCE, Center Stop date: 12/05/19 9:44:00 CDT fentaNYL (ANES) Route: IV, Inactive [place] Drug form: 2019 Medical INJ, ONCE, Center Stop date: 12/05/19 9:44:00 CDT dexamethasone Route: IV, Inactive [place] (ANES) Drug form: 2019 Medical INJ, ONCE, Center Stop date: 12/05/19 9:39:00 CDT ePHEDrine (ANES) Route: IV, Inactive [place] Drug form: 2019 Medical INJ, ONCE, Center Stop date: 12/05/19 8:58:00 CDT Sodium Chloride Route: IV, Inactive [place] 0.9% IV (ANES) 500 Total Volume: 2019 Medical mL 500, Start Center date: 12/05/19 8:55:00 CDT, Stop date: 12/05/19 9:55:00 CDT propofol (ANES) 10 Route: IV, [facility] [place] mg Drug form: 2019 Medical INJ, Start Center date: 12/05/19 8:55:00 CDT, Stop date: 12/05/19 9:55:00 CDT SUFentanil (ANES) Route: IV, Inactive [facility] 50 microgram Drug form: 2019 Medical INJ, Start Center date: 12/05/19 8:55:00 CDT, Stop date: 12/05/19 9:55:00 CDT Sodium Chloride Route: IV, Inactive [place] 0.9% IV (ANES) 235 Drug form: 2019 Me dical mL + vancomycin INJ, Start Cente r (ANES) 1500 mg date: 12/05/19 8:45:00 CDT, Stop date: 12/05/19 9:45:00 CDT Isolyte S PH 7.4 Route: IV, Inactive [place] (ANES) 1000 mL Total Volume: 2019 Med ical 1,000, Start Center date: 12/05/19 8:08:00 CDT, Stop date: 12/05/19 9:08:00 CDT Albuterol 0.833 Notes: (Same No Longer [place] MG/ML / as: Duoneb) Active 2020 Medical Ipratropium Center [place] 0.167 MG/ML Inhalant Solution Humalog Notes: (Same No Longer [facility] as: Humalog) Active 2020 Medical Roll in palms Center of hands gently; Do not shake vigorously. WASTE: F/P - Black; E - Municipal Trash Bin Stable for 28 days at room temperature. Expires in days from Date Humalog Notes: (Same Inactive [facility] as: Humalog) 2020 Medical Roll in palms Center of hands gently; Do not shake vigorously. WASTE: F/P - Black; E - Municipal Trash Bin Stable for 28 days at room temperature. Expires in days from Date Humalog Notes: (Same Inactive [facility] as: Humalog) 2020 Medical Roll in palms Center of hands gently; Do not shake vigorously. WASTE: F/P - Black; E - Municipal Trash Bin Stable for 28 days at room temperature. Expires in days from Date Insulin Lispro Notes: (Same No Longer [facility] as: Humalog) Active 2019 Medical Roll in palms Center of hands gently; Do not shake vigorously. WASTE: F/P - Black; E - Municipal Trash Bin Stable for 28 days at room temperature. Expires in days from Date Insulin Glargine 20 unit, 0.2 No Longer [facility] mL, Route: Active 2019 Medical SUB-Q, Drug Center form: SOLN, Daily, Dosing Weight 90, kg, Start date: 12/02/19 9:00:00 CDT, Duration: 30 day, Stop date: 12/31/19 9:00:00 CDT, 0 Levemir 20 unit, Inactive [facility] Route: SUB-Q, 2020 Medical Bedtime, Center Dosing Weight 90, kg, Start date: 12/01/19 21:00:00 CDT, Duration: 30 day, Stop date: 12/30/19 21:00:00 CDT Dextrose 50% 12.5 gm, 25 [place] Longer [place] Syringe (D50W) mL, Route: Active 2020 Medica l IVP, Drug Center Form: INJ, Dosing Weight 90, kg, PRN, PRN Blood Glucose Results, Start date: 12/01/19 13:30:00 CDT, Duration: 30 day, Stop date: 12/31/19 13:29:00 CDT, 0 Glucagon 1 mg, Route: No Longer [place] IM, Drug form: Active 2019 Medical PDR/INJ, PRN, Center Dosing Weight 90, kg, PRN Blood Glucose Results, Start date: 12/01/19 13:30:00 CDT, Duration: 30 day, Stop date: 12/31/19 13:29:00 CDT, 0 Lactated [place] 1,000 mL, Inactive [place] IV 1,000 mL Rate: 75 2019 Medical ml/hr, Infuse Center over: 13.3 hr, Route: IV, Dosing Weight 90 kg, Total Volume: 1,000, Start date: 11/30/19 2:25:00 CDT, Duration: 1 day, Stop date: 12/01/19 2:24:00 CDT, 1.98, m2, 0 Dextrose 50% 12.5 gm, 25 No Longer [place] Syringe (D50W) mL, Route: Active 2019 Medica l IVP, Drug Center Form: INJ, Dosing Weight 90, kg, PRN, PRN Blood Glucose Results, Start date: 11/29/19 21:47:00 CDT, Duration: 30 day, Stop date: 12/29/19 21:46:00 CDT, 0 Glucagon 1 mg, Route: No Longer [facility] IM, Drug form: Active 2019 Medical PDR/INJ, PRN, Center Dosing Weight 90, kg, PRN Blood Glucose Results, Start date: 11/29/19 21:47:00 CDT, Duration: 30 day, Stop date: 12/29/19 21:46:00 CDT, 0 Insulin Lispro Notes: (Same No Longer [facility] as: Humalog) Active 2019 Medical Roll in palms Center of hands gently; Do not shake vigorously. WASTE: F/P - Black; E - Municipal Trash Bin Stable for 28 days at room temperature. Expires in days from Date Insulin Glargine 20 unit, 0.2 No Longer [place] 100 UNT/ML mL, Route: 2019 Medical Injectable SUB-Q, Drug Center Solution [Lantus] form: SOLN, Q12H, Dosing Weight 90, kg, Start date: 11/29/19 21:00:00 CDT, Duration: 30 day, Stop date: 12/29/19 9:00:00 CDT, 0 Lidocaine Notes: (Same [place] Longer [place] Hydrochloride 10 as: Xylocaine) Active 2019 Medical MG/ML Injectable Center Solution Saline Flush 0.9% Notes: (Same No Longer [facility] as: BD Active 2019 Medical Posiflush) Center Saline Flush 0.9% Notes: (Same No Longer [facility] as: BD Active 2019 Medical Posiflush) Center Dextrose 5% with 1,000 mL, No Longer [place] 0.45% NaCl IV Rate: 40 2019 Medical 1,000 mL ml/hr, Infuse Center over: 25 hr, Route: IV, Dosing Weight 90 kg, Total Volume: 1,000, Start date: 11/29/19 6:28:00 CDT, Duration: 30 day, Stop date: 12/29/19 6:27:00 CDT, 1.98, m2, 0 Melatonin 3 MG Notes: (Same No Longer [facility] Extended Release as: Melatonin) Active 2019 Medical Tablet Center sennosides, FDC Notes: (Same No Longer 11/25/ H [place] as: Senokot) Active 2019 Medical Center Insulin Glargine 20 unit, 0.2 No Longer [place] 100 UNT/ML mL, Route: Active 2019 Medical Injectable SUB-Q, Drug Center Solution [Lantus] form: SOLN, Q12H, Dosing Weight 90, kg, Start date: 11/25/19 21:00:00 CDT, Duration: 30 day, Stop date: 12/25/19 9:00:00 CDT, 0 Ramipril Notes: (Same No Longer [facility] as:Altace) Active 2019 [facility] Center Oxycodone Notes: (Same [place] Longer [place] Hydrochloride 1 as: 2019 Medical MG/ML Oral 'Roxicodone) Center Solution rosuvastatin Notes: (Same No Longer [place] As: Crestor) Active 2019 [facility] Acetaminophen 325 650 mg = 2 Active [facility] MG Oral Tablet tab, PO, PRN, 2019 Med ical [Tylenol] 0 Refill(s) Center clonazePAM 0.5 mg 0.5 mg = 1 Active [facility] oral tablet tab, PO, BID, 2019 Medica l 0 Refill(s) Center sertraline 25 mg 25 mg = 1 tab, Active [facility] oral tablet PO, Daily, 0 2019 Medical Refill(s) Center predniSONE 20 mg 20 mg = 1 tab, Active [facility] oral tablet PO, Daily, 0 2019 Medical Refill(s) Center rosuvastatin 20 mg 20 mg = 1 tab, Active [facility] oral tablet PO, Daily, 0 2019 Medical Refill(s) Center ramipril 2.5 mg 2.5 mg = 1 Active [place] oral capsule cap, PO, 2019 Medical Daily, 0 Center Refill(s) 3 ML insulin 25 unit, No Longer [facility] detemir 100 UNT/ML SUB-Q, BID, # Active 2019 Medical Prefilled Syringe 3 mL, 3 Center [Levemir] Refill(s) levothyroxine 88 88 microgram = Active [facility] mcg (0.088 mg) 1 tab, PO, 2019 Medica l oral tablet Daily, 0 Center Refill(s) Klor-Con 10 = 1 tab, PO, No Longer [place] BID, 0 2019 Medical Refill(s) Center 3 ML Insulin, 10 [facility], [facility] 100 SUB-Q, Active 2019 Medica l UNT/ML Pen TID-Before Center Injector [NovoLog] Meals, 0 Refill(s) Insulin Glargine 20 unit, 0.2 No Longer 06/25/ [facility] 100 UNT/ML mL, Route: Active 2019 Medical Injectable SUB-Q, Drug Center Solution [Lantus] form: SOLN, Bedtime, Dosing Weight 90, kg, Start date: 11/23/19 21:00:00 CDT, Duration: 30 day, Stop date: 12/22/19 21:00:00 CDT, 0 Insulin regular Notes: (Same Inactive [place] as: Humulin R) 2020 Medical Roll in palms Center of hands gently; Do not shake vigorously. WASTE: F/P - Black; E - Municipal Trash Bin Stable for 31 days at room temperature Expires in days from Date Dextrose 50% 12.5 gm, 25 [place] Longer [place] Syringe (D50W) mL, Route: 2019 Medica l IVP, Drug Center Form: INJ, Dosing Weight 90, kg, PRN, PRN Blood Glucose Results, Start date: 11/23/19 17:47:00 CDT, Duration: 30 day, Stop date: 12/23/19 17:46:00 CDT, 0 Glucagon 1 mg, Route: No Longer [place] IM, Drug form: Active 2019 Medical PDR/INJ, PRN, Center Dosing Weight 90, kg, PRN Blood Glucose Results, Start date: 11/23/19 17:47:00 CDT, Duration: 30 day, Stop date: 12/23/19 17:46:00 CDT, 0 Insulin regular Notes: (Same No Longer [place] as: Humulin R) Active 2020 Medical Roll in palms Center of hands gently; Do not shake vigorously. WASTE: F/P - Black; E - Municipal Trash Bin Stable for 31 days at room temperature Expires in days from Date gabapentin Notes: (Same No Longer [place] as: Neurontin) Active 2020 Medical Center Lovenox Notes: (Same No Longer [place] as: Lovenox) Active 2020 Medical Center Lasix Notes: (Same No Longer [facility] as: Lasix) Active 2020 Medical May cause GI Center upset. Give with food or milk. Kayexalate 15 gm, Route: Inactive [place] as PO, Drug form: 2019 Medical SUSP, ONCE, Center Dosing Weight 90, kg, Start date: 11/23/19 10:36:00 CDT, Stop date: 11/23/19 10:36:00 CDT Insulin regular 5 unit, Route: Inactive [place] IVP, ONCE, 2019 Medical Dosing Weight Center 90, kg, Start date: 11/23/19 10:35:00 CDT, Stop date: 11/23/19 10:35:00 CDT Dextrose 50% 50 mL, Route: Inactive [place] Syringe (D50W) IVP, Dosing 2019 Medic al Weight 90, kg, Center ONCE, Start date: 11/23/19 10:35:00 CDT, Stop date: 11/23/19 10:35:00 CDT normal saline 0.9% 1,000 mL, No Longer H [place] IV 1,000 mL Rate: [address] [place] [address] ml/hr, Infuse Center over: 13.3 hr, Route: IV, Dosing Weight 90 kg, Total Volume: 1,000, Start date: 11/23/19 10:33:00 CDT, Duration: 30 day, Stop date: 12/23/19 10:32:00 CDT, 1.98, m2, 0 Zoloft Notes: (Same No Longer [facility] as: Zoloft) Active 2020 [facility] Center Prednisone Notes: Take No Longer [place] with food. Active 2020 [facility] Docusate Notes: (Same No Longer [facility] as: Colace) Active 2020 Medical (Do Not Crush) Center sennosides, FDC Notes: (Same No Longer 11/22/ M H [place] as: Senokot) Active 2020 [facility] Albuterol 0.833 Notes: (Same No Longer 11/22/ M H [place] MG/ML / as: Duoneb) Active 2020 [facility] Ipratropium [place] 0.167 MG/ML Inhalant Solution Synthroid Notes: Take 1 No Longer [place] hour before or Active 2020 Medical 2 hours after Center meal; Enteral feeds may interefere with the absorption of this medication. (Same as:Synthroid) remove patch Notes: Remove No Longer [place] patch 12 hours 2019 Medical after Center application each day. Pyridostigmine Notes: (Same No Longer [place] as: Mestinon) Active 2019 [facility] Amlodipine Notes: (Same No Longer [place] as: Norvasc) Active [address] [place] [address] Enoxaparin Notes: (Same [place] as: Lovenox) [address] [place] [address] Lidocaine Notes: Apply No Longer [place] Hydrochloride 0.05 only once for Active 2019 Medical MG/MG Transdermal up to 12 hours Center Patch [Lidoderm] in a 24-hour period (12 hours on and 12 hours off). (Same as: Lidoderm) "Remove old patch before application of new patch" Dextrose 50% 12.5 gm, 25 [place] Longer [place] Syringe (D50W) mL, Route: 2019 Medica l IVP, Drug Center Form: INJ, Dosing Weight 100, kg, PRN, PRN Blood Glucose Results, Start date: 11/22/19 16:16:00 CDT, Duration: 30 day, Stop date: 12/22/19 16:15:00 CDT, 0 Glucagon 1 mg, Route: No Longer [place] IM, Drug form: 2019 Medical PDR/INJ, PRN, Center Dosing Weight 100, kg, PRN Blood Glucose Results, Start date: 11/22/19 16:16:00 CDT, Duration: 30 day, Stop date: 12/22/19 16:15:00 CDT, 0 Insulin regular Notes: (Same No Longer [facility] as: Humulin R) 2019 Medical Roll in palms Center of hands gently; Do not shake vigorously. WASTE: F/P - Black; E - Municipal Trash Bin Stable for 31 days at room temperature Expires in days from Date Hydralazine Notes: (Same No Longer [place] as: 2019 Medical Apresoline) Center Push over 5 minutes Acetaminophen Notes: Max No Longer [place] acetaminophen Active 2019 Medical 4000 mg/day (4 Center gm/day). (Same as: Tylenol Extra Strength) gabapentin Notes: (Same No Longer [place] as: Neurontin) Active 2020 Medical Center Tramadol Notes: Not to [place] Longer [place] exceed Active 2019 Medical 400mg/day. Center (Same As: Ultram) Saline Flush 0.9% Notes: Same No Longer [place] as: BD Active 2019 Medical Posiflush Center Sterile Ativan Notes: (Same Inactive [place] as: Ativan) 2019 [facility] Ativan 1 mg, Route: Inactive [place] IVP, Drug 2019 Medical form: INJ, Center ONCE, Dosing Weight 100, kg, PRN as needed for anxiety, Priority: Routine, Start date: 11/22/19 15:28:00 CDT Calcium Chloride 500 mL, Infuse Inactive [place] 0.0014 MEQ/ML / Over: 1 hr, 2019 [facility] roger Potassium Chloride Route: IV, Ce nter 0.004 MEQ/ML / ONCE, Sodium Chloride Priority: 0.103 MEQ/ML / STAT, Dosing Sodium Lactate Weight 100 kg, 0.028 MEQ/ML Start date: Injectable 11/22/19 Solution 11:17:00 CDT, Stop date: 11/22/19 11:17:00 CDT Iohexol 150 mL, Route: Inactive [place] IVP, Drug 2019 Medical Form: SOLN, Center Dosing Weight 100, kg, ONCALL, STAT, Start date: 11/22/19 9:50:00 CDT, Duration: 1 doses or times, Dose = 2.2ml/kg, Max dose = 150ml -- "To be infused by Radiology Staff ONLY" Fentanyl Notes: (Same Inactive [place] as: Sublimaze) 2019 Medical Preservative Center free. Calcium Chloride 1,000 mL, Inactive [place] 0.0014 MEQ/ML / Infuse Over: 1 2019 M edical Potassium Chloride hr, Route: IV, Center 0.004 MEQ/ML / ONCE, Sodium Chloride Priority: 0.103 MEQ/ML / STAT, Dosing Sodium Lactate Weight 100 kg, 0.028 MEQ/ML Start date: Injectable 11/22/19 Solution 7:32:00 CDT, Stop date: 11/22/19 7:32:00 CDT Iohexol 100 mL, Route: Inactive [facility] IVP, Drug 2020 Medical Form: SOLN, [place] Dosing Weight 100, kg, ONCALL, STAT, Start date: 11/22/19 7:08:00 CDT, Duration: 1 doses or times, Dose = 2.2ml/kg, Max dose = 100ml -- "To be infused by Radiology Staff ONLY" heparin flush Notes: (Same Inactive [facility] [place] as: Heparin 2019 Medical Lock Flush) [place] heparin 100 unit, Inactive [facility] Route: IVP, 2019 Medical ONCE, Dosing Center Weight 100, kg, Start date: 03/04/19 17:24:00 CDT, Stop date: 03/04/19 17:24:00 CDT rosuvastatin 10 mg 20 mg = 2 tab, Active [facility] oral tablet PO, Bedtime, # 2019 Medic al 180 tab, 3 Center Refill(s) amLODIPine 10 mg 10 mg, PO, Active [facility] [place] oral tablet Daily, # 30 2019 Medical tab, 0 Center Refill(s) Ergocalciferol 50,000 Active [facility] [address] UNT Oral IntlUnit = 1 2019 Medi roger Capsule cap, PO, Q7D, Center # 5 cap, 0 Refill(s) Famotidine 20 MG 20 mg = 1 tab, Active [facility] Oral Tablet PO, Daily, # 2019 Medical 30 tab, 0 Center Refill(s) Furosemide 20 MG 20 mg = 1 tab, Active [facility] Oral Tablet PO, Daily, # 2019 Medical [Lasix] 30 tab, 0 Center Refill(s) Insulin Glargine 15 unit, Active [place] 100 UNT/ML SUB-Q, Daily, 2019 Medical Injectable # 15 mL, 0 Center Solution [Lantus] Refill(s) linezolid 600 mg 600 mg = 1 Active [place] oral tablet tab, PO, 2019 Medical [id number], X 7 Center day, # 14 tab, 0 Refill(s) meclizine 12.5 mg 12.5 mg = 1 Active [facility] oral tablet tab, PO, TID, 2019 Medica [...] mg 25 mg = 5 tab, Active H [place] oral tablet PO, Daily, # [...] PO, Active [place] 800 MG / [id number], X 7 2019 Medical Trimethoprim 160 day, [...] Medical Injectable 0 Refill(s) Center Solution [Lantus] linezolid 600 mg 600 mg = 1 Inactive [place] oral tablet tab, PO, 2019 Medical [id number], 0 Center Refill(s) meclizine 12.5 mg 12.5 [...] tab, PO, Inactive [place] 800 MG / [id number], 0 2019 Medical Trimethoprim 160 Refill(s) Cente r MG Oral Tablet [Bactrim] Acetaminophen 325 650 mg = 2 Inactive [place] MG Oral Tablet tab, PO, Q6H, 2019 Med ical PRN Pain Score Center 7-10, 0 Refill(s) Ergocalciferol 50,000 Inactive [facility] [address] UNT Oral IntlUnit = 1 2019 Medi roger Capsule cap, PO, Q7D, Center 0 Refill(s) Famotidine 20 MG 20 mg = 1 tab, Inactive [place] Oral Tablet PO, Daily, 0 2018 Medical Refill(s) [place] Hydroxyzine 25 mg = 1 cap, Inactive [place] Hydrochloride 25 PO, QID, PRN 2019 Me dical MG Oral Capsule Anxiety, 0 Cente r Refill(s) predniSONE 5 mg 25 mg = 5 tab, Inactive [facility] oral tablet PO, Daily, 0 2018 Medical Refill(s) [place] Flagyl 500 mg, 1 tab, Inactive [facility] Route: PO, 2019 Medical Drug form: [place] TAB, [id number], Dosing Weight 100, kg, Start date: 03/04/19 9:00:00 CDT, Duration: 14 day, Stop date: 03/18/19 1:00:00 CDT, ABX Indication: Skin/Soft Tissue Infection, 0 Furosemide 40 MG Notes: (Same No Longer [facility] Oral Tablet as: Lasix) Active 2019 Medical [Lasix] May cause GI Center upset. Give with food or milk. Meclizine Notes: (Same [place] Longer [place] as: Antivert) Active 2019 Medical [place] pyridostigmine 60 60 mg = 1 tab, No Longer 03/02 [place] mg oral tablet PO, TID, # 180 Active 2019 Me dical tab, 0 Center Refill(s) Hydroxyzine Notes: (Same No Longer [place] as: Vistaril) Active 2019 [facility] Insulin Glargine 15 unit, 0.15 No Longer [place] 100 UNT/ML mL, Route: Active 2019 [facility] Injectable SUB-Q, Drug Center Solution [Lantus] form: SOLN, Daily, Dosing Weight 90.909, kg, Start date: 02/28/19 9:00:00 CDT, Duration: 30 day, Stop date: 03/29/19 9:00:00 CDT, 0 Insulin Lispro Notes: (Same No Longer [facility] as: Humalog) Active 2019 Medical Roll in palms Center of hands gently; Do not shake vigorously. WASTE: F/P - Black; E - Municipal Trash Bin Stable for 28 days at room temperature. Expires in days from Date Seroquel Notes: (Same No Longer [facility] as: SEROquel) Active 2019 [facility] linezolid 600 mg, 1 tab, No Longer [place] Route: PO, Active 2019 Medical Drug form: Center TAB, [id number], Dosing Weight 90.909, kg, Start date: 02/26/19 17:00:00 CDT, Duration: 10 day, Stop date: 03/08/19 8:00:00 CDT, ABX Indication: Skin/Soft Tissue Infection, 0 Sulfamethoxazole 2 tab, Route: No Longer [facility] 800 MG / PO, Drug Form: Active 2019 [facility] Trimethoprim 160 TAB, Dosing Mitch ter MG Oral Tablet Weight 90.909, [Bactrim] kg, [id number], Start date: 02/26/19 17:00:00 CDT, Duration: 10 day, Stop date: 03/08/19 5:00:00 CDT, 0 Lactated [place] Route: IV, Inactive [place] Injection IV Total Volume: 2019 Medic al (ANES) 1000 mL 1,000, Start Cent er date: 02/26/19 13:00:00 CDT, Stop date: 02/26/19 14:00:00 CDT lidocaine (ANES) Route: IV, Inactive [place] Drug form: 2018 Medical INJ, ONCE, Center [...] 12:48:00 CDT ePHEDrine (ANES) Route: IV, Inactive [place] Drug form: 2018 Medical INJ, ONCE, Center [...] of times Oxycodone 5 mg, Route: Inactive [place] Hydrochloride 5 MG PO, Drug form: 2018 Medical Oral Tablet TAB, Q4H, Center [...] 12:35:00 CDT Naloxone 0.4 mg, Route: [place] IVP, Q2MIN, 2019 Medical Dosing Weight Center 90.909, kg, PRN Narcotic Reversal, Start date: 02/26/19 12:36:00 CDT, Duration: 8 doses or times, Stop date: Limited # of times Ondansetron 4 mg, Route: Inactive [place] IVP, ONCE, 2019 Medical Dosing Weight Center 90.909, kg, PRN Nausea & Vomiting, Start date: 02/26/19 12:36:00 CDT insulin, isophane Notes: (Same No Longer [place] as: Humulin N) Active 2018 Medical Roll in palms Center of hands gently; Do not shake vigorously. WASTE: F/P - Black; E - [employer] Trash Bin Stable for 31 days at [...] No Longer [place] IVP, Q2MIN, Active 2019 Medical Dosing Weight Center 90.909, kg, PRN Narcotic Reversal, Start date: 02/22/19 23:53:00 CDT, Duration: 8 doses or times, Stop date: Limited # of times Ondansetron 4 mg, Route: No Longer [place] IVP, ONCE, Active 2019 Medical Dosing Weight Center 90.909, kg, PRN Nausea & Vomiting, Start date: 02/22/19 23:53:00 CDT Insulin regular 2 unit, Route: No Longer [place] SUB-Q, Sliding Active 2019 Medical Scale, Dosing Center Weight 90.909, kg, PRN Blood Glucose Results, Start date: 02/22/19 23:53:00 CDT, Duration: 30 day, Stop date: 03/24/19 23:52:00 CDT ertapenem Notes: No Longer [place] MEDICATION Active 2019 Medical WASTE Center Product Size: 1000 mg Product Wasted: ___ mg insulin, isophane Notes: (Same No Longer [place] as: Humulin N) Active 2019 Medical Roll in palms Center of hands gently; Do not shake vigorously. WASTE: F/P - Black; E - Municipal Trash Bin Stable for 31 days at room temperature Expires in days from Date Prednisone Notes: Take No Longer [place] with food. Active 2019 Medical Center Saline Flush 0.9% 10 mL, Route: Inactive [place] IVP, Drug 2019 Medical Form: INJ, Center Dosing Weight 90.909, kg, Q8H, Start date: 02/21/19 16:00:00 CDT, Duration: 30 day, Stop date: 03/23/19 8:00:00 CDT Lidocaine 5 mL, Route: Inactive [place] Hydrochloride 10 INTRADERM, 2019 Medi roger MG/ML Injectable Dosing Weight C enter Solution 90.909, kg, ONCALL, For PICC line insertion., Start date: 02/21/19 15:00:00 CDT, Duration: 30 day, Stop date: 03/23/19 14:59:00 CDT Saline Flush 0.9% 10 mL, Route: Inactive [facility] IVP, Drug 2019 Medical Form: INJ, Center Dosing Weight 90.909, kg, PRN, PRN Line Flush, Start date: 02/21/19 14:42:00 CDT, Duration: 30 day, Stop date: 03/23/19 14:41:00 CDT Lidocaine 5 mL, Route: Inactive [place] Hydrochloride 10 INTRADERM, 2019 Medi roger MG/ML Injectable Dosing Weight C enter Solution 90.909, kg, ONCALL, For PICC line insertion., Start date: 02/21/19 14:00:00 CDT, Duration: 30 day, Stop date: 03/23/19 13:59:00 CDT Saline Flush 0.9% 10 mL, Route: Inactive [facility] IVP, Drug 2018 Medical Form: INJ, Center Dosing Weight 90.909, kg, PRN, PRN Line Flush, Start date: 02/21/19 13:20:00 CDT, Duration: 30 day, Stop date: 03/23/19 13:19:00 CDT Lidocaine 2 spray, Inactive [place] Hydrochloride 20 Route: TOP, 2019 Med ical MG/ML Topical ONCE, Start Center [place] date: 02/21/19 13:20:00 CDT, Stop date: 02/21/19 13:20:00 CDT Lidocaine Notes: (Same No Longer [place] Hydrochloride 10 as: Xylocaine) Active 2019 Medical MG/ML Injectable Center Solution Saline Flush 0.9% 10 mL, Route: Inactive [facility] IVP, Drug 2019 Medical Form: INJ, Center Dosing Weight 90.909, kg, PRN, PRN Line Flush, Start date: 02/21/19 11:54:00 CDT, Duration: 30 day, Stop date: 03/23/19 11:53:00 CDT Saline Flush 0.9% Notes: (Same No Longer [place] as: BD Active 2019 Medical Posiflush) Center Lidocaine Notes: No Longer [place] Hydrochloride 10 Preservative Active 2018 Me dical MG/ML Injectable free. (Same Ce nter Solution as: Xylocaine MPF) Saline Flush 0.9% Notes: (Same No Longer [place] as: BD Active 2019 Medical Posiflush) Center insulin, isophane Notes: (Same Inactive [facility] as: Humulin N) 2019 Medical Roll in palms Center of hands gently; Do not shake vigorously. WASTE: F/P - Black; E - Municipal Trash Bin Stable for 31 days at room temperature Expires in days from Date Melatonin Notes: (Same No Longer [facility] s as: Melatonin) Active 2018 Medical Center Zyprexa Notes: (Same No Longer [place] As: ZyPREXA Active 2019 Medical IM). Center insulin, isophane Notes: (Same Inactive [facility] as: Humulin N) 2019 Medical Roll in palms Center of hands gently; Do not shake vigorously. WASTE: F/P - Black; E - Municipal Trash Bin Stable for 31 days at room temperature Expires in days from Date insulin, isophane Notes: (Same Inactive [facility] as: Humulin N) 2019 Medical Roll in palms Center of hands gently; Do not shake vigorously. WASTE: F/P - Black; E - Municipal Trash Bin Stable for 31 days at room temperature Expires in days from Date Iohexol 100 mL, Route: Inactive [place] IVP, Drug 2019 Medical Form: MORAIMA [place] Dosing Weight 90.909, kg, ONCALL, STAT, Start date: 02/19/19 9:17:00 CDT, Duration: 1 doses or times, Dose = 2.2ml/kg, Max dose = 100ml -- "To be infused by Radiology Staff ONLY" insulin detemir Notes: In[place] Non-Formulary 2019 Medical Drug (Same Center as [facility]) "Single Patient Use Only" Do not hold insulin without contacting prescriber WASTE: F/P - Black; E - Municipal Trash Bin Stable for 42 days at room temperature Expires in days from Date insulin detemir Notes: No Longer [place] Non-Formulary Active 2019 Medical Drug (Same Center as [facility]) "Single Patient Use Only" Do not hold insulin without contacting prescriber WASTE: F/P - Black; E - Municipal Trash Bin Stable for 42 days at room temperature Expires in days from Date Potassium Chloride Notes: (Same Inactive [facility] as: K-) 2019 Medical "Do Not Crush" Center Give with food and full glass of water For patients unable to swallow tablet, dissolve in one half glass of water. Allow about 2 minutes for the tablets to disintegrate. Stir before giving to prepare slurry and administer. Please exclude Patient’ s with feeding tube less than 14 [place] ([place]obhoff, J-tube etc) and pediatric and patients. PlasmaLyte A Notes: (Same No Longer [place] PH-7.4 1,000 mL as: Isolyte S Active 2019 Me dical PH 7.4) Center insulin detemir Notes: No Longer [place] Non-Formulary Active 2019 Medical Drug (Same Center as [facility]) "Single Patient Use Only" Do not hold insulin without contacting prescriber WASTE: F/P - Black; E - Municipal Trash Bin Stable for 42 days at room temperature Expires in days from Date Seroquel Notes: (Same No Longer [facility] as: SEROquel) Active 2019 Medical Center insulin detemir Notes: Inactive [place] Non-Formulary 2019 Medical Drug (Same Center as [facility]) "Single Patient Use Only" Do not hold insulin without contacting prescriber WASTE: F/P - Black; E - Municipal Trash Bin Stable for 42 days at room temperature Expires in days from Date Iohexol Notes: (same Inactive [facility] as:Omnipaque 2019 Medical 350). WASTE: Center F/P - Black; E - Municipal Trash Bin insulin detemir Notes: Inactive [facility] Non-Formulary 2019 Medical Drug (Same Center as Levemir) "Single Patient Use Only" Do not hold insulin without contacting prescriber WASTE: F/P - Black; E - Municipal Trash Bin Stable for 42 days at room temperature Expires in days from Date vancomycin + 2001 mg: No Longer [facility] Sodium Chloride infuse over Active 2018 Medi roger 0.9% IV 250 mL 2.5 hours For Ce nter adult patients only: Round to nearest 250 mg per Medical Staff approval MEDICATION WASTE Product Size: 1000 mg Product Wasted: ___ mg ertapenem Notes: No Longer [facility] MEDICATION Active 2019 Medical WASTE Center Product Size: 1000 mg Product Wasted: ___ mg vancomycin + 2001 mg: Inactive [facility] Sodium Chloride infuse over 2019 Medi roger 0.9% IV 500 mL 2.5 hours For Ce nter adult patients only: Round to nearest 250 mg per Medical Staff approval MEDICATION WASTE Product Size: 1000 mg Product Wasted: ___ mg Famotidine Notes: (Same No Longer [facility] as as: Pepcid) Active 2019 Medical [place] vancomycin + 2001 mg: Inactive [facility] Sodium Chloride infuse over 2019 Medi roger 0.9% IV 500 mL 2.5 hours For Ce nter adult patients only: Round to nearest 250 mg per Medical Staff approval MEDICATION WASTE Product Size: 1000 mg Product Wasted: ___ mg Vancomycin 1,000 mg, Inactive [facility] Route: IVPB, 2019 Medical Drug form: Center INJ, [id number], Dosing Weight 90.909, kg, Start date: 02/16/19 8:00:00 CDT, Duration: 7 day, Stop date: 02/23/19 0:00:00 CDT, ABX Indication: Skin/Soft Tissue Infection Humalog Notes: (Same No Longer [facility] as: Humalog) Active 2019 Medical Roll in palms Center of hands gently; Do not shake vigorously. WASTE: F/P - Black; E - Municipal Trash Bin Stable for 28 days at room temperature. Expires in days from Date Levemir Notes: No Longer [facility] Non-Formulary Active 2019 Medical Drug (Same Center as Levemir) "Single Patient Use Only" Do not hold insulin without contacting prescriber WASTE: F/P - Black; E - Municipal Trash Bin Stable for 42 days at room temperature Expires in days from Date Humalog Notes: (Same Inactive [facility] as: Humalog) 2019 Medical Roll in palms Center of hands gently; Do not shake vigorously. WASTE: F/P - Black; E - Municipal Trash Bin Stable for 28 days at room temperature. Expires in days from Date Hydralazine Notes: (Same [place] Longer [place] Hydrochloride 25 as: Active 2019 Medical MG Oral Tablet Apresoline) Ana Lilia pride May interfere w/enteral feedings Take With Food. Merrem Notes: Same as No Longer [place] Active 2019 Medical MEDICATION Center WASTE Product Size: 500 mg Product Wasted: ___ mg Insulin Lispro Notes: (Same Inactive [facility] as: Humalog) 2019 Medical Roll in [...] 0 Glucagon 1 mg, Route: No Longer [place] IM, Drug form: Active 2019 Medical PDR/INJ, PRN, Center Dosing Weight 90.909, kg, PRN Blood Glucose Results, Start date: 02/13/19 20:33:00 CDT, Duration: 30 day, Stop date: 03/15/19 20:32:00 CDT, 0 Insulin Lispro Notes: (Same No Longer [facility] as: Humalog) Active 2019 Medical Roll [...] 20:31:00 CDT Morphine Notes: (Same No Longer [place] as:MORPhine Active 2019 Medical Sulfate) Center Insulin Lispro Notes: (Same Inactive [facility] as: Humalog) 2019 Medical Roll in palms Center of hands gently; Do not shake vigorously. WASTE: F/P - Black; E - Municipal Trash Bin Stable for 28 days at room temperature. Expires in days from Date Saline Flush 0.9% Notes: (Same No Longer [place] as: BD Active 2019 Medical Posiflush) Center Ativan Notes: (Same No Longer [place] as: Ativan) Active 2019 Medical Center Lidocaine [...] Medical Center Ativan 1 mg, Route: Inactive [place] IV, ONCE, [...] from Date Insulin Lispro Notes: (Same Inactive [facility] as: Humalog) 2019 Medical Roll in palms Center of hands gently; Do not shake vigorously. WASTE: F/P - Black; E - Municipal Trash Bin Stable for 28 days at room temperature. Expires in days from Date Haloperidol Notes: (Same No Longer [place] as: Haldol) Active 2019 Medical Center Morphine 1 mg, Route: Inactive [facility] IV, ONCE, 2019 Medical Dosing Weight Center 90.909, kg, Priority: STAT, Start date: 02/10/19 13:32:00 CDT, Stop date: 02/10/19 13:32:00 CDT vancomycin 2001 mg: Inactive [facility] infuse over 2019 Medical 2.5 hours Center [facility] Notes: No Longer [facility] Non-Formulary Active 2019 Medical Drug (Same Center as [facility]) "Single Patient Use Only" Do not hold [...] 500 mg Product Wasted: _0__ mg Vancomycin 2001 mg: Inactive [place] infuse over 2019 Medical 2.5 hours For Center adult patients only: Round to nearest 250 mg per Medical Staff approval MEDICATION WASTE Product Size: 1000 mg Product Wasted: ___ mg Isolyte S PH-7.4 Notes: (Same Inactive [facility] IV as: Isolyte S 2019 Medical PH 7.4) Center Clindamycin Notes: (Same [place] Longer [place] As: Cleocin) Active 2019 Medical Center [facility] Notes: No Longer [place] Non-Formulary Active 2019 Medical Drug (Same Center as [facility]) "Single Patient Use Only" Do not hold insulin without contacting prescriber WASTE: F/P - Black; E - Municipal Trash Bin Stable for 42 days at room temperature Expires in days from Date Humalog Notes: (Same No Longer [facility] as: Humalog) Active 2019 Medical Roll [...] 0 Glucagon 1 mg, Route: No Longer [facility] IM, Drug form: Active 2019 Medical PDR/INJ, PRN, Center Dosing Weight 90.909, kg, PRN Blood Glucose Results, Start date: 02/08/19 1:33:00 CDT, Duration: 30 day, Stop date: 03/10/19 1:32:00 CDT, 0 Insulin Lispro Notes: (Same No Longer [facility] as: Humalog) Active 2019 Medical Roll in palms Center of hands gently; Do not shake vigorously. WASTE: F/P - Black; E - Municipal Trash Bin Stable for 28 days at room temperature. Expires in days from Date Humalog Notes: (Same Inactive [place] as: Humalog) 2019 Medical Roll in palms [...] normal saline 0.9% 1,000 mL, No Longer [facility] IV 1,000 mL Rate: 75 Active 2019 Medical ml/hr, Infuse Center over: 13.3 hr, Route: IV, Dosing Weight 90.909 kg, Total Volume: 1,000, Start date: 02/07/19 22:50:00 CDT, Duration: 30 day, Stop date: 03/09/19 22:49:00 CDT, 1.99, m2, 0 remove patch 1 patch, No Longer [place] Route: TOP, Active 2019 Medical Bedtime, Drug Center form: ERFILM, Start date: 02/07/19 21:00:00 CDT, Duration: 30 day, Stop date: 03/08/19 21:00:00 CDT, 0 Humalog Notes: (Same Inactive [facility] as: Humalog) 2019 Medical Roll in palms Center of hands gently; Do not shake vigorously. WASTE: F/P - Black; E - Municipal Trash Bin Stable for 28 days at room temperature. 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909, kg, PRN Pain Score 7-10, Start date: 02/06/19 11:20:00 CDT, Duration: 30 day, Stop date: 03/08/19 11:19:00 CDT, 0 sterile water 2.1 mL, Route: No Longer 02/06/ H [place] MISC, Drug Active 2019 Medical Form: INJ, Center BID, PRN, Start date: 02/06/19 11:17:00 CDT, Duration: 30 day, Stop date: 03/08/19 11:16:00 CDT, For Zyprexa reconstitution , 0 olanzapine 10 mg, Route: [place] Longer [place] IM, Drug form: Active 2019 Medical INJ, BID, Center Dosing Weight 90.909, kg, PRN Agitation, Start date: 02/06/19 11:07:00 CDT, Duration: 30 day, Stop date: 03/08/19 11:06:00 CDT, 0 Sertraline Notes: (Same No Longer [place] as as: Zoloft) Active 2019 Medical Center Furosemide 40 MG Notes: (Same No Longer [place] Oral Tablet as: Lasix) Active 2019 Medical [...] 500 mL as: Isolyte S Active 2019 [facility] PH 7.4) Center Insulin Glargine 20 unit, 0.2 No Longer [place] mL, Route: Active 2019 Medical SUB-Q, Drug Center form: SOLN, Daily, Dosing Weight 90.909, kg, Priority: NOW, Start date: 02/05/19 21:02:00 CDT, Duration: 30 day, Stop date: 03/07/19 9:00:00 CDT, 0 rosuvastatin Notes: (Same No Longer [place] As: Crestor) Active 2019 Medical Center tramadol Notes: Not to Inactive [place] hydrochloride [...] 0 Glucagon 1 mg, Route: No Longer [place] IM, Drug form: Active 2019 Medical PDR/INJ, PRN, Center Dosing Weight 90.909, kg, PRN Blood Glucose Results, Start date: 02/05/19 16:39:00 CDT, Duration: 30 day, Stop date: 03/07/19 16:38:00 CDT, 0 Insulin regular Notes: (Same No Longer [place] as: Humulin R) Active 2019 Medical Roll in palms Center of hands gently; Do not shake vigorously. WASTE: F/P - Black; E - [employer] Trash Bin Stable for 31 days at room temperature Expires in days from Date Mestinon Notes: (Same No Longer [place] as: Mestinon) Active 2019 [facility] Prednisone 30 mg, 3 tab, [place]er [place] Route: PO, Active 2019 Medical Drug form: Center TAB, Daily, Dosing Weight 90.909, kg, Priority: NOW, Start date: 02/05/19 14:40:00 CDT, Duration: 30 day, Stop date: 03/07/19 9:00:00 CDT, 0 insulin lispro 100 12 unit, Active [place] units/mL SUB-Q, 2018 Medical injectable TID-Before Center solution Meals, 0 Refill(s) Insulin Glargine 34 unit, Active [place] as 100 UNT/ML SUB-Q, Daily, 2019 Medical Injectable 0 Refill(s) Center Solution [Lantus] Furosemide 40 MG 40 mg = 1 tab, Active [place] Oral Tablet PO, BID 2019 Medical [Lasix] Diuretic, 0 Center Refill(s) Furosemide 40 MG Notes: (Same Inactive H [place] Oral Tablet as: Lasix) 2019 Medical [Lasix] May cause GI Center upset. Give with food or milk. Furosemide Notes: (Same [place] as: Lasix) 2019 Medical MEDICATION Center WASTE Product Size: 40 mg Product Wasted: ___ mg Sodium Chloride 3% Notes: SEE RT No Longer 01/07 [place] inhalation DOCUMENTATION Active 2019 Medical solution (Same as: Center Hypertonic Saline 3%, Inhalation) Furosemide Notes: (Same [place] as: Lasix) 2019 Medical MEDICATION Center WASTE Product Size: 40 mg Product Wasted: ___ mg insulin detemir 36 unit, Active [place] 100 UNT/ML SUB-Q, BID, # 2019 Medical Injectable 15 mL, 3 Center Solution [Levemir] Refill(s), other Lasix Notes: (Same Inactive [place] as: Lasix) 2019 Medical Center Furosemide 40 MG Notes: (Same No Longer [facility] Oral Tablet as: Lasix) Active 2019 Medical [Lasix] May cause GI Center upset. Give with food or milk. Amlodipine Notes: (Same No Longer [place] as: Norvasc) Active 2019 Medical Center Ramipril Notes: (Same No Longer [place] as:Altace) Active 2019 Medical Center ceFAZolin Notes: (Same Inactive [facility] as Ancef) 2019 Medical Center Calcium Gluconate Notes: WASTE: Inactive [place] F/P - Sink; E 2019 [facility] Center Trash Bin predniSONE 20 mg 40 mg = 2 tab, No Longer [place] oral tablet PO, Daily, X Active 2019 Medical 10 day, # 20 Center tab, 0 Refill(s), other insulin lispro 100 12 unit, No Longer [place] units/mL SUB-Q, Active 2019 Medical injectable TID-Before Center solution Meals, # 10 mL, 0 Refill(s), other insulin detemir 36 unit, [place] Longer [place] 100 UNT/ML SUB-Q, BID, # Active 2019 Medical Injectable 30 mL, 0 Center Solution [Levemir] Refill(s), other albumin human 5% Notes: LOT#: Inactive [facility] intravenous M 2018 Medic al solution fg: Center (Same as: Albuminar) "blood product derivative&quo t; WASTE: F/P - Red; E -Red MEDICATION WASTE Product Size: 25 gm Product Wasted: ___ gm Prednisone Notes: Take No Longer [place] with food. Active 2019 Medical Center Insulin Glargine 34 unit, 0.34 No Longer [place] 100 UNT/ML mL, Route: Active 2019 Medical Injectable SUB-Q, Drug Center Solution [Lantus] form: SOLN, Daily, Dosing Weight 92, kg, Start date: 01/01/19 9:00:00 CDT, Duration: 30 day, Stop date: 01/30/19 9:00:00 CDT, 0 Insulin Lispro Notes: (Same No Longer [facility] as: Humalog) Active 2019 Medical Roll in palms Center of hands gently; Do not shake vigorously. WASTE: F/P - Black; E - Municipal Trash Bin Stable for 28 days at room temperature. Expires in days from Date Insulin Glargine Notes: (Same No Longer [place] 100 UNT/ML as: Lantus) Do Active 2018 Medica l Injectable not hold Center Solution [Lantus] insulin without contacting prescriber WASTE: F/P - Black; E - Municipal Trash Bin "single patient use only" Stable for 28 days at room temperature Expires in days from Date Calcium Gluconate Notes: WASTE: Inactive [facility] F/P - Sink; E 2018 Medical - Municipal [facility] Trash Bin albumin human 5% Notes: LOT#: Inactive [facility] intravenous M 2018 Medic al solution fg: [...] (Same as:Synthroid) insulin, isophane Notes: (Same Inactive [place] as: Humulin N) 2019 Medical Roll in [...] 01/29/19 0:38:00 CDT phenol Notes: No Longer [place] Chloraseptic Active 2019 Medical [place] (Same Center as: Chloraseptic, Sore Throat [place]) WASTE: F/P - Black; E - Municipal Trash Bin insulin, isophane Notes: (Same No Longer [place] [...] 11:00:00 CDT Ancef Notes: (Same No Longer [place] as Ancef) Active 2019 Medical Center Sulfamethoxazole [...] 2019 Medical (Do Not Crush) Center sennosides, FDC Notes: (Same No Longer [place] 8.6 MG Oral Tablet as: Senokot) Active 2019 Medical Center Prednisone Notes: Take No Longer [place] with food. Active 2018 [facility] insulin, isophane Notes: (Same No Longer [place] as: Humulin N) Active 2018 Medical Roll in palms Center of hands gently; Do not shake vigorously. WASTE: F/P - Black; E - Municipal Trash Bin Stable for 31 days at room temperature Expires in days from Date insulin, isophane Notes: (Same Inactive [place] as: Humulin N) 2019 Medical Roll in palms Center of hands gently; Do not shake vigorously. WASTE: F/P - Black; E - Municipal Trash Bin Stable for 31 days at room temperature Expires in days from Date heparin sodium, Notes: porcine No Longer [place] porcine 2500 heparin Active 2018 [facility] UNT/ML Injectable Center Solution Dextrose 50% 12.5 gm, 25 [place] Longer [place] Syringe mL, Route: Active 2018 [facility] IVP, Drug Center Form: INJ, Dosing Weight 92, kg, PRN, PRN Blood Glucose Results, Start date: 12/27/18 15:14:00 CDT, Duration: 30 day, Stop date: 01/26/19 15:13:00 CDT, 0 Glucagon 1 mg, Route: No Longer [place] IM, Drug form: Active 2018 [facility] PDR/INJ, PRN, Center Dosing Weight 92, kg, PRN Blood Glucose Results, Start date: 12/27/18 15:14:00 CDT, Duration: 30 day, Stop date: 01/26/19 15:13:00 CDT, 0 Insulin regular Notes: (Same No Longer [facility] as: Humulin R) Active 2019 Medical Roll in palms Center of hands gently; Do not shake vigorously. WASTE: F/P - Black; E - Municipal Trash Bin Stable for 31 days at room temperature Expires in days from Date insulin, isophane Notes: (Same No Longer [facility] as: Humulin N) Active 2019 Medical Roll in palms Center of hands gently; Do not shake vigorously. WASTE: F/P - Black; E - Municipal Trash Bin Stable for 31 days at room temperature Expires in days from Date Zithromax 250 mg Notes: Take 1 No Longer [facility] oral tablet hour before or Active 2019 Medic al 2 hours after Center meals. (Same As: Zithromax) Lanolin 0.157 Notes: (Same No Longer [facility] MG/MG / Menthol as: Active 2019 Medical 0.0044 MG/MG / Calmoseptine) Mitch ter Petrolatum 0.24 MG/MG / Zinc Oxide 0.206 MG/MG Topical Ointment Famotidine Notes: (Same No Longer [place] as: Pepcid) Active 2019 [facility] Midodrine Notes: (Same [place] Long[place] as:Proamatine) Active 2019 [facility] albumin human 5% Notes: LOT#: Inactive [facility] intravenous 2019 Medica l solution Mfg: Center WASTE: F/P - Red; E -Red (Same as: Albuminar) "blood product derivative" Midodrine Notes: (Same Inactive [facility] as:Proamatine) 2019 [facility] Center azithromycin 500 Notes: Take 1 Inactive [facility] mg oral tablet hour before or 2019 Me dical 2 hours after Center meals. (Same As: Zithromax) Calcium Gluconate 3 gm, Route: Inactive [place] IV, 2019 Medical Continuous, Center Dosing Weight 92, kg, Start date: 12/26/18 9:00:00 CDT, Duration: 30 day, Stop date: 01/25/19 8:59:00 CDT albumin human 5% 2.25 Liter, Inactive [facility] intravenous Route: IV, 2019 Medical solution Dosing Weight Center 92, kg, ONCE, Start date: 12/26/18 8:41:00 CDT, Stop date: 12/26/18 8:41:00 CDT, Indication: Plasmapheresis Norepinephrine Notes: Not for No Longer [facility] direct Active 2019 Medical administration Center - DILUTE. Protect from light. (Same as:Levophed). Administer by either central venous catheter or peripherally-i nserted central catheter (PICC) line. Insulin regular Notes: Final No Longer [facility] 100 unit + Concentration Active 2019 [facility] 1unit/1ml Center WASTE: F/P - Black; E - Municipal Trash Bin Dextrose 50% 6.25 gm, 12.5 No Longer [facility] Syringe mL, Route: Active 2019 [facility] IVP, Drug Center Form: INJ, Dosing Weight 92, kg, PRN, PRN Abnormal Lab Result, Start date: 12/25/18 20:23:00 CDT, Duration: 30 day, Stop date: 01/24/19 20:22:00 CDT, 0 Famotidine Notes: (Same No Longer [place] as: Pepcid) Active 2019 Medical Center Mestinon Notes: (Same No Longer [facility] as: Mestinon) Active 2019 Medical [place] Sodium Chloride 3% Notes: SEE RT No Longer 12/25 [facility] inhalation DOCUMENTATION Active 2019 Medical solution (Same as: [place] Hypertonic Saline 3%, Inhalation) fondaparinux Notes: (Same No Longer [place] as: Arixtra) Active 2019 [facility] Center Albuterol 1 MG/ML Notes: SEE RT No Longer [facility] Inhalant Solution DOCUMENTATION Active 2019 Medical (Same as: [place] Proventil) Calcium Gluconate Notes: WASTE: Inactive [facility] F/P - Sink; E 2019 Medical [facility] Trash Bin albumin human 5% Notes: LOT#: Inactive [facility] intravenous M 2019 Medic al solution fg: Center (Same as: Albuminar) "blood product derivative&quo t; WASTE: F/P - Red; E -Red MEDICATION WASTE Product Size: 25 gm Product Wasted: ___ gm Prednisone Notes: Take [place] Longer [place] with food. Active 2019 Medical Center Thyroxine Notes: Take 1 No Longer [place] hour before or Active 2018 Medical 2 hours after Center meal; Enteral feeds may interefere with the absorption of this medication. (Same as:Synthroid) ocular lubricant Notes: (Same No Longer [place] as: Active 2018 Medical Lacri-Lube, Center Puralube, Duratears Naturale, Artificial Tears, and Tears Again ) Prednisone 50 MG 50 mg = 1 tab, No Longer [place] Oral Tablet PO, Daily, 0 Active 2018 Medical Refill(s) Center rosuvastatin 20 mg 20 mg = 1 tab, No Longer 11/30 [place] oral tablet PO, Bedtime, 0 Active 2018 Medic al Refill(s) Center ramipril 10 mg 10 mg = 1 cap, Active [place] oral capsule PO, Daily, 0 2018 Medica l Refill(s) Center Amlodipine 10 mg, PO, Active [facility] Daily, 0 2018 Medical Refill(s) Center Furosemide 80 mg, PO, No Longer [facility] Daily, 0 Active 2018 Medical Refill(s) Center Potassium Chloride 20 mEq, PO, Active H [place] Daily, 0 2018 Medical Refill(s) Center Pyridostigmine 60 mg, PO, Active [place] Q8H, 0 2018 Medical Refill(s) Center sertraline 25 mg 25 mg = 1 tab, Active [facility] oral tablet PO, Daily, 0 2018 Medical Refill(s) Center Thyroxine 88 microgram, Active [facility] PO, Daily, 0 2018 Medical Refill(s) Center Alendronic acid 70 70 mg = 1 tab, Active [facility] MG Oral Tablet PO, 0 2018 Medical [Fosamax] Refill(s) Center Levemir SUB-Q, 0 No Longer [facility] Refill(s) Active 2019 [facility] Trulicity Pen SUB-Q, 0 Active [facility] Refill(s) 2019 [facility] Famotidine 20 mg, 2 mL, No Longer [place] Route: IVP, Active 2019 Medical Drug form: Center INJ, Q12H, Dosing Weight 102.273, kg, Start date: 12/24/18 21:00:00 CDT, Duration: 30 day, Stop date: 01/23/19 9:00:00 CDT, 0 docusate sodium Notes: (Same No Longer [facility] as: Colace) Active 2019 Medical Center sennosides, FDC Notes: (Same No Longer [facility] 8.6 MG Oral Tablet as: Senokot) Active 2019 [facility]: [facility] Medical WASTE Center Product Size: 2000 mg Product Wasted: ___ mg Albuterol 0.833 Notes: (Same No Longer [facility] MG/ML / as: Duoneb) Active 2019 [facility] Ipratropium [place] 0.167 MG/ML Inhalant Solution [DuoNeb] chlorhexidine Notes: (Same No Longer [facility] gluconate 1.2 As: Peridex) Active 2019 Medic al MG/ML Mouthwash [place] Flagyl 500 mg, 100 No Longer [facility] mL, Route: Active 2019 Medical IVPB, Drug Center form: INJ, ABXQ8H, Dosing Weight 102.273, kg, Start date: 12/24/18 19:00:00 CDT, Duration: 7 day, Stop date: 12/31/18 6:00:00 CDT, ABX Indication: Bacteremia, 0 Vancomycin 2001 mg: No Longer [facility] infuse over Active 2019 Medical 2.5 hours For Center adult patients only: Round to nearest 250 mg per medical staff approval MEDICATION WASTE Product Size: 1000 mg Product Wasted: ___ mg Tylenol 100.4 F, No Longer [facility] Start date: Active 2019 Medical 12/24/18 [place] 18:39:00 CDT, Duration: 30 day, Stop date: 01/23/19 18:38:00 CDT, 0 Zofran Notes: No Longer [place] MEDICATION Active 2018 Medical WASTE Center Product Size: 4 mg Product Wasted: ___ mg Fentanyl 1,000 No Longer [place] microgram, 20 Active 2018 Medical mL, Rate: Center Titrate, Start Dose: 50 microgram/hr, Titration: 25 microgram/hour every 15 minutes, Goal(s): RASS 0, Max Dose: 300 microgram/hr, Route: IV, Dosing Weight 102.273 kg, Total Volume: 20, Start date: 12/24/18 18:39:00 CDT, D... Potassium Chloride Notes: (Same No Longer [place] as: KCL) 2018 Medical Infuse no Center faster than 10 mEq/hr if given peripherally. sodium phosphate Notes: Infuse No Longer [facility] over 4 hour. 2018 Medical Do not infuse Center phosphorous concurrently in the same line as TPN or IVF that contains calcium. For double lumen central lines, phosphorous may be infused in a separate lumen from TPN. potassium Notes: (Same No Longer [facility] phosphate as: K Active 2018 [facility] Phosphate.) Center Do not infuse phosphorous concurrently in the same line as TPN or IVF that contains calcium. For double lumen central lines, phosphorous may be infused in a separate lumen from TPN. 1 mMol phoshate has 1.47 mEq potassium Infuse over 4 hours potassium Notes: (Same No Longer [facility] phosphate-sodium as: Phos-NaK) 2018 edical phosphate 250 Each 1.5 gm Center mg-280 mg-160 mg pkt has 250mg oral powder for phosphorous. reconstitution Mix w/2.5oz water and stir. Magnesium Sulfate Notes: WASTE: No Longer [facility] F/P - Sink; E Active 2018 [facility] Center Trash Bin Magnesium Oxide Notes: (Same No Longer [facility] as: Mag-Ox Active 2018 [facility] 400) Magnesium Center oxide [id number] elemental magnesium Dose=____mg magnesium oxide (___mg elemental magnesium) Calcium Gluconate Notes: WASTE: No Longer [facility] F/P - Sink; E Active [address] [facility] Trash Bin Calcium Carbonate Notes: (Same No Longer [place] 500 MG Chewable As: Tums) Active 2018 [...] 0 Glucagon 1 mg, Route: No Longer [facility] IM, Drug form: Active 2018 [facility] PDR/INJ, PRN, Center Dosing Weight 102.273, kg, PRN Blood Glucose Results, Start date: 12/24/18 18:37:00 CDT, Duration: 30 day, Stop date: 01/23/19 18:36:00 CDT, 0 chlorhexidine Notes: (Same No Longer [facility] gluconate 1.2 As: Peridex) Active 2018 Medic al MG/ML Mouthwash Center Insulin regular Notes: Roll in No Longer [place] palms of hands Active 2019 Medical gently; do not Center shake vigorously. (Same as: Humulin R) WASTE: F/P - Black; E - Municipal Trash Bin Stable for 31 days at room temperature Expires in days from Norepinephrine Notes: Not for No Longer [facility] direct Active 2019 Medical administration Center - DILUTE. Protect from light. (Same as:Levophed). Administer by either central venous catheter or peripherally-i nserted central catheter (PICC) line. Isolyte S PH 7.4 Notes: (Same No Longer [facility] 1,000 mL as: Isolyte S Active 2019 [facility] PH 7.4) Center Ibuprofen Notes: (Same Inactive [facility] as: Motrin) 2019 Medical "Do Not Crush" Center Give with food. Tylenol Notes: Max Inactive [facility] [place] acetaminophen 2019 Medical 4000 mg/day (4 Center gm/day). (Same as: Tylenol Extra Strength) Mestinon Notes: (Same Inactive [place] as: Mestinon) 2019 Medical Center Insulin Lispro Notes: (Same Inactive [facility] as: Humalog) 2019 Medical Roll in palms Center of hands gently; Do not shake vigorously. WASTE: F/P - Black; E - Municipal Trash Bin Stable for 28 days at room temperature. Expires in days from Date Glucagon 1 mg, Route: Inactive [place] IM, Drug form: 2019 Medical PDR/INJ, PRN, Center Dosing Weight 91.818, kg, PRN Blood Glucose Results, Start date: 09/23/18 3:43:00 CDT, Duration: 30 day, Stop date: 10/23/18 3:42:00 CDT Dextrose 50% 12.5 gm, 25 Inactive [place] as Syringe mL, Route: 2019 [facility] IVP, Drug Center Form: INJ, Dosing Weight 91.818, kg, PRN, PRN Blood Glucose Results, Start date: 09/23/18 3:43:00 CDT, Duration: 30 day, Stop date: 10/23/18 3:42:00 CDT Arixtra Notes: (Same No Longer [place] as: Arixtra) Active 2019 Medical Center Famotidine Notes: (Same No Longer [place] as: Pepcid) Active 2019 Medical Center sennosides, FDC Notes: (Same No Longer H [place] 8.6 MG Oral Tablet as: Senokot) Active 2019 Medical Center ropinirole Notes: (Same No Longer [place] as: Requip) Active 2019 Medical Center Ramipril Notes: (Same No Longer [place] as:Altace) Active 2019 Medical Center Prednisone Notes: Take [place] Longer [place] with food. Active 2019 Medical Center Furosemide 20 MG Notes: (Same No Longer [facility] Oral Tablet as: Lasix) Active 2019 Medical May cause GI Center upset. Give with food or milk. Amlodipine Notes: (Same No Longer [place] as: Norvasc) Active 2019 Medical Center Docusate Sodium 50 Notes: (Same No Longer [place] MG / sennosides, as Senokot-S) Active 2018 edical FDC 8.6 MG Oral Equiv. to [place] Tablet Cassidy-Colace. Levothroid 88 mcg 88 microgram = Active Dougie (0.088 mg) oral 1 tab, PO, 2019 Medic al tablet Daily, 0 Center Refill(s) rosuvastatin Notes: (Same No Longer [place] As: Crestor) Active 2019 [facility] Insulin Glargine 20 unit, 0.2 No Longer [place] 100 UNT/ML mL, Route: Active 2018 Medical Injectable SUB-Q, Drug Center Solution form: SOLN, Bedtime, Dosing Weight 91.818, kg, Start date: 09/21/18 21:00:00 CDT, Duration: 30 day, Stop date: 10/20/18 21:00:00 CDT Sertraline Notes: (Same No Longer [place] as: Zoloft) Active 2019 [facility] Pyridostigmine Notes: (Same No Longer [place] as: Mestinon) Active 2019 [facility] Dextrose 50% 25 gm, 50 mL, No Longer [place] Syringe Route: IVP, Active 2018 Medical Drug Form: Center INJ, Dosing Weight 91.818, kg, PRN, PRN Abnormal Lab Result, Start date: 09/21/18 18:24:00 CDT, Duration: 30 day, Stop date: 10/21/18 18:23:00 CDT Regular Insulin, Notes: (Same No Longer [place] Human 100 UNT/ML as: Humulin R) Active 2019 Medical Injectable Roll in palms Center Solution of hands gently; Do not shake vigorously. WASTE: F/P - Black; E - Municipal Trash Bin Stable for 31 days at room temperature Expires in days from Date Docusate Notes: (Same No Longer [place] as: Colace) Active 2019 Medical (Do Not Crush) Center Occupational See On Hold [place] Therapy Instructions, 2019 Medical MISC, ONCALL, [place] Evaluate and Treat __3_ times per week for __4__ weeks, # 1 bag, 0 Refill(s) Physical Therapy See On Hold [place] s Instructions, 2018 [facility], [place] Evaluate and Treat _3__ times per week for __4__ weeks, # 1 bag, 0 Refill(s) Ramipril Notes: (Same Inactive [place] as:Altace) 2019 [facility] Center Furosemide 20 MG 20 mg = 1 tab, On Hold [place] Oral Tablet PO, Every 2019 Medical Other Day, # Center 15 tab, 3 Refill(s) amLODIPine 10 mg 10 mg = 1 tab, On Hold [facility] oral tablet PO, Daily, # 2019 Medical 30 tab, 3 Center Refill(s) predniSONE 20 mg 60 mg = 3 tab, On Hold [facility] oral tablet PO, Daily, X 2019 Medical 30 day, # 90 Center tab, 0 Refill(s) pyridostigmine 60 60 mg = 1 tab, On Hold [place] mg oral tablet PO, Q8Hnow, # 2019 Med ical 90 tab, 3 Center Refill(s) ramipril 5 mg oral 10 mg = 2 cap, On Hold [facility] capsule PO, Daily, # 2019 Medical 60 cap, 3 Center Refill(s) sennosides, FDC 8.6 mg = 1 [place] 8.6 MG Oral Tablet tab, PO, BID, 2019 Medical X 30 day, # 60 Center tab, 3 Refill(s) sertraline 25 mg 25 mg = 1 tab, On Hold [facility] oral tablet PO, Q24H, # 30 2019 Medic al tab, 0 Center Refill(s) insulin, isophane Notes: (Same No Longer [facility] as: Humulin N) Active 2018 Medical Roll in palms Center of hands gently; Do not shake vigorously. WASTE: F/P - Black; E - Municipal Trash Bin Stable for 31 days at room temperature Expires in days from Date gabapentin 300 MG 300 mg, Route: Inactive [place] Oral Capsule PO, Drug form: 2019 Medi roger CAP, ONCE, Center Dosing Weight 91.378, kg, Start date: 09/18/18 0:54:00 CDT, Stop date: 09/18/18 0:54:00 CDT normal saline 0.9% 1,000 mL, No Longer H [place] IV 1,000 mL Rate: 75 Active 2019 [...] Medical 30 cap, 1 Center Refill(s), Pharmacy: [facility]/pharmacy #[id number] metoprolol 25 mg = 1 tab, No Longer [place] tartrate 25 mg PO, Q12H, # 60 Active 2019 Me dical oral tablet tab, 1 Center Refill(s), Pharmacy: [facility]acy [id number] Furosemide 20 MG 20 mg = 1 tab, No Longer [place] Oral Tablet PO, Every Active 2019 Medical Other Day, # Center 30 tab, 1 Refill(s), Pharmacy: [facility]acy [id number] amLODIPine 10 mg 10 mg = 1 tab, No Longer [place] oral tablet PO, Daily, # Active 2019 Medical 30 tab, 1 Center Refill(s), Pharmacy: [facility]acy [id number] sertraline 25 mg 25 mg = 1 tab, No Longer [place] oral tablet PO, Q24H, # 30 Active 2019 Medic al tab, 1 Center Refill(s), Pharmacy: [facility]acy [facility][id number] sennosides, FDC 8.6 mg = 1 No Longer [place] 8.6 MG Oral Tablet tab, PO, BID, Active 2019 Medical # 60 tab, 0 Center Refill(s), Pharmacy: [facility]acy [facility][id number] pyridostigmine 60 60 mg = 1 tab, No Longer 09/17 [place] mg oral tablet PO, Q8Hnow, # Active 2019 Med ical 90 tab, 1 Center Refill(s), Pharmacy: [facility]/pharmacy #[id number] predniSONE 20 mg 60 mg = 3 tab, No Longer [place] oral tablet PO, Daily, # Active 2019 Medical 30 tab, 1 Center Refill(s), Pharmacy: [facility]/pharmacy #[id number] Insulin regular Notes: (Same No Longer [facility] as: Humulin R) Active 2019 Medical Roll in palms Center of hands gently; Do not shake vigorously. WASTE: F/P - Black; E - Municipal Trash Bin Stable for 31 days at room temperature Expires in days from Date Glucagon 1 mg, Route: No Longer [place] IM, Drug form: Active 2019 Medical PDR/INJ, PRN, Center Dosing Weight 91.378, kg, PRN Blood Glucose Results, Start date: 09/17/18 18:52:00 CDT, Duration: 30 day, Stop date: 10/17/18 18:51:00 CDT Dextrose 50% in 25 gm, 50 mL, No Longer [place] Water (bolus) IV Route: IVP, Active 2019 Med ical Drug Form: Center INJ, Dosing Weight 91.378, kg, PRN, PRN Blood Glucose Results, Start date: 09/17/18 18:52:00 CDT, Duration: 30 day, Stop date: 10/17/18 18:51:00 CDT Melatonin 0.25 1 mg, Route: Inactive [place] mg/mL oral liquid PO, Dosing 2019 Med ical Weight 91.378, Center kg, Bedtime, Start date: 09/16/18 21:00:00 CDT, Duration: 30 day, Stop date: 10/15/18 21:00:00 CDT insulin, isophane Notes: (Same No Longer [place] as: Humulin N) Active 2019 Medical Roll in palms Center of hands gently; Do not shake vigorously. WASTE: F/P - Black; E - Municipal Trash Bin Stable for 31 days at room temperature Expires in days from Date Amlodipine Notes: (Same No Longer [place] as: Norvasc) Active 2019 Medical Center melatonin 1 mg/mL 1 mg, 1 mL, Inactive H [place] oral solution Route: PO, 2019 Medical Drug Form: Center EYADQ, Dosing Weight 91.378, kg, ONCE, STAT, Start date: 09/16/18 0:53:00 CDT, Stop date: 09/16/18 0:53:00 CDT insulin, isophane Notes: (Same Inactive [facility] as: Humulin N) 2019 Medical Roll in palms Center of hands gently; Do not shake vigorously. WASTE: F/P - Black; E - Municipal Trash Bin Stable for 31 days at room temperature Expires in days from Date Insulin regular Notes: (Same Inactive [facility] as: Humulin R) 2019 Medical Roll in palms Center of hands gently; Do not shake vigorously. WASTE: F/P - Black; E - Municipal Trash Bin Stable for 31 days at room temperature Expires in days from Date Miralax Notes: No Longer [facility] Dissolve in 8 2018 Medical oz of water or Center juice. (Same as: Miralax) lansoprazole Notes: Take 1 No Longer [facility] hour before or Active 2018 Medical 2 hours after Center meal; Expires in 14 days. Shake well before use. (Same as:Prevacid) Compounded Product - formulation not commercially available insulin, isophane Notes: (Same Inactive [facility] as: Humulin N) 2019 Medical Roll in palms Center of hands gently; Do not shake vigorously. WASTE: F/P - Black; E - Municipal Trash Bin Stable for 31 days at room temperature Expires in days from Date Saline Flush 0.9% Notes: (Same No Longer [facility] as: BD Active 2019 Medical Posiflush) Center Lasix Notes: (Same Inactive [facility] as: Lasix) 2019 Medical MEDICATION Center WASTE Product Size: 40 mg Product Wasted: ___ mg docusate sodium Notes: (Same No Longer [place] 100 mg oral as: Colace) Active 2018 Medical capsule (Do Not Crush) Center sennosides, FDC Notes: (Same No Longer [place] as: Senokot) Active 2019 [facility] Center insulin, isophane Notes: (Same Inactive as: Humulin N) 2019 Medical Roll in palms Center of hands gently; Do not shake vigorously. WASTE: F/P - Black; E - Municipal Trash Bin Stable for 31 days at room temperature Expires in days from Date Insulin regular Notes: (Same No Longer [place] as: Humulin R) Active 2018 Medical Roll in palms [place] of hands [...] [place] Syringe mL, Route: Active 2018 [facility] IVP, Drug Center Form: INJ, Dosing Weight 91.378, kg, PRN, PRN Blood Glucose Results, Start date: 09/14/18 16:20:00 CDT, Duration: 30 day, Stop date: 10/14/18 16:19:00 CDT Saline Flush 0.9% Notes: (Same No Longer [place] as: BD Active 2018 Medical Posiflush) Center Nystatin 100 Notes: (Same No Longer [place] UNT/MG Topical as:Mycostatin, Active 2018 Ri dical Powder Nilstat) For Center external use only. Amlodipine Notes: (Same No Longer [place] as: Norvasc) Active 2019 Medical Center Lasix Notes: (Same Inactive [place] as: Lasix) 2019 Medical MEDICATION Center WASTE Product Size: 40 mg Product Wasted: ___ mg Albuterol 0.833 Notes: (Same No Longer H [place] MG/ML / as: Duoneb) Active 2019 [facility] Ipratropium Center [place] 0.167 MG/ML Inhalant Solution [DuoNeb] Potassium Chloride Notes: (Same Inactive [place] 1.33 MEQ/ML Oral as: Potassium 2018 edical Solution Chloride) Center Sertraline Notes: (Same No Longer [place] as: Zoloft) Active 2019 [facility] Immunoglobulin G 25 gm, Route: No Longer [place] IV, Q24H, Active 2019 [facility] Dosing Weight Center 91.378, kg, Start date: 09/13/18 21:00:00 CDT, Duration: 1 day, Stop date: 09/13/18 21:00:00 CDT, Indication: Myasthenia gravis metoprolol Notes: (Same No Longer [place] as tartrate as: Lopressor) Active 2019 [facility] Gamunex-C 25 gm + Notes: WASTE: Inactive [place] empty container 1 F/P - Red; E 2019 M edical bag -Red Lot Center # ____Mfg: (Gamunex - C) "blood product derivative" iodixanol 100 mL, Route: Inactive [place] as IVP, Drug 2019 Medical Form: SOLN, [place] Dosing Weight 91.378, kg, ONCALL, STAT, Start date: 09/13/18 11:50:00 CDT, Duration: 1 doses or times, Dose = 2.2ml/kg, Max dose = 100ml -- "To be infused by Radiology Staff ONLY" Prednisone Notes: Take No Longer [place] with food. Active 2019 Medical [place] pantoprazole Notes: For IV No Longer [place] push Active 2019 [facility] reconstitute Center with 10 ml 0.9% sodium chloride and push over 2 minutes. (Same as: Protonix) chlorhexidine Notes: (Same No Longer [place] gluconate 1.2 As: Peridex) Active 2018 Medic al MG/ML Mouthwash Center Norepinephrine Notes: Not for Inactive [place] direct 2019 Medical administration Center - DILUTE. Protect from light. (Same as:Levophed). Administer by either central venous catheter or peripherally-i nserted central catheter (PICC) line. propofol 10 mg/mL Notes: If No Longer [place] (Titrate.) IV Diprivan - Active 2018 Medical 1,000 mg change bottle Center & tubing every 12 hr Per state nursing law propofol can only be given by a nurse if patient is intubated or being intubated (unless the nurse is a ELASTIC YARN TWISTER HELPER). Same as: Diprivan Rocuronium Notes: ([facility]: Zemeron) 2019 Medical Center Fentanyl Notes: (Same Inactive [place] as: Sublimaze) 2019 [facility] Preservative Center free. Propofol Notes: If Inactive [place] Diprivan - 2019 Medical change bottle Center & tubing every 12 hr Per state nursing law propofol can only be given by a nurse if patient is intubated or being intubated (unless the nurse is a ELASTIC YARN TWISTER HELPER). Same as: Diprivan ocular lubricant Notes: (Same No Longer [place] as: Active 2018 Medical Lacri-Lube, Center Puralube, Duratears Naturale, Artificial Tears, and Tears Again ) normal saline 0.9% 1,000 mL, No Longer [place] IV 1,000 mL Rate: 75 Active 2019 Medical ml/hr, Infuse Center over: 13.3 hr, Route: IV, Dosing Weight 91.378 kg, Total Volume: 1,000, Start date: 09/13/18 5:43:00 CDT, Duration: 30 day, Stop date: 10/13/18 5:42:00 CDT, 1.99, m2 chlorhexidine Notes: (Same No Longer [place] gluconate 1.2 As: Peridex) Active 2018 Medic al MG/ML Mouthwash Center Insulin regular Notes: Final No Longer [place] 100 unit + Concentration Active 2019 Medical 1unit/1ml Center WASTE: F/P - Black; E - Municipal Trash Bin Dextrose 50% 6.25 gm, 12.5 No Longer [place] Syringe mL, Route: Active 2019 Medical IVP, Drug Center Form: INJ, Dosing Weight 91.378, kg, PRN, PRN Abnormal Lab Result, Start date: 09/13/18 1:52:00 CDT, Duration: 30 day, Stop date: 10/13/18 1:51:00 CDT Adult Parenteral Notes: Must No Longer [facility] Nutrition Custom - use 1.2 micron Active 2019 Medical Peripheral (PPN filter AND Cente r not TPN) 2,040 mL Lipids should not be administered to patients who are allergic to soy, fish, egg or peanuts. Immunoglobulin G 50 gm, Route: Inactive [place] IV, Q24H, 2019 Medical Dosing Weight Center 91.378, kg, Start date: 09/12/18 21:00:00 CDT, Duration: 1 day, Stop date: 09/12/18 21:00:00 CDT, Indication: Myasthenia gravis Gamunex-C 75 gm + Route: IVPB, Inactive [place] empty container 1 Drug form: 2019 Med ical bag SOLN, Bedtime, Center Start date: 09/12/18 21:00:00 CDT, Duration: 1 doses or times, Stop date: 09/12/18 21:00:00 CDT, Indication: Myasthenia gravis Gamunex-C 50 gm + Notes: WASTE: Inactive [place] empty container 1 F/P - Red; E 2019 M edical bag -Red Lot Center # ____Mfg: (Gamunex - C) Non-Formulary "blood product derivative" Pyridostigmine Notes: (Same No Longer [place] as: Mestinon) Active 2019 [facility] Calcium Carbonate Notes: (Same No Longer [place] 500 MG Chewable As: Tums) Active 2019 Medica l Tablet Calcium Center Carbonate 500 mg = 200 mg elemental calcium Dose = mg calcium carbonate ( mg elemental calcium) Calcium Gluconate Notes: WASTE: No Longer [place] F/P - Sink; E Active [address] [facility] Trash Bin Magnesium Oxide Notes: (Same No Longer 09/12/ H [place] as: Mag-Ox Active 2018 Medical 400) Magnesium Center oxide [id number] elemental magnesium Dose=____mg magnesium oxide (___mg elemental magnesium) Magnesium Sulfate Notes: WASTE: No Longer [place] F/P - Sink; E Active [address] [facility] Trash Bin potassium Notes: (Same [facility] Long[facility] phosphate-sodium as: K-Phos Active 2018 [facility] roger phosphate 250 Neutral, [place] mg-280 mg-160 mg Phospha 250 oral powder for Neutral) reconstitution Potassium Chloride Notes: (Same No Longer [place] as: K-Dur 20) Active 2018 [facility] "Do Not Crush" Center Give with food and full glass of water For patients unable to swallow tablet, dissolve in one half glass of water. Allow about 2 minutes for the tablets to disintegrate. Stir before giving to prepare slurry and administer. Please exclude Patient’ s with feeding tube less than 14 [place] (Dobhoff, J-tube etc) and pediatric and patients. sodium phosphate Notes: Infuse No Longer [place] over 4 hour. Active 2018 [facility] Do not infuse Center phosphorous concurrently in the same line as TPN or IVF that contains calcium. For double lumen central lines, phosphorous may be infused in a separate lumen from TPN. potassium Notes: (Same No Longer [facility] s phosphate as: K Active 2018 Medical Phosphate.) [place] Do not infuse phosphorous concurrently in the same line as TPN or IVF that contains calcium. For double lumen central lines, phosphorous may be infused in a separate lumen from TPN. 1 mMol phoshate has 1.47 mEq potassium Infuse over 4 hours benzocaine topical Notes: (Same No Longer [place] gel As: Maximum Active 2018 Medical Strength [facility] Orajel ) Immunoglobulin G 75 gm, Route: Inactive [place] IV, Drug form: 2019 Medical INJ, Q24H, [place] Dosing Weight 91.378, kg, Start date: 09/12/18 12:00:00 CDT, Duration: 1 doses or times, Stop date: 09/12/18 12:00:00 CDT, Indication: Myasthenia gravis Magnesium Sulfate Notes: WASTE: Inactive [place] F/P - Sink; E [address] [facility] Tra Bin Calcium Gluconate Notes: WASTE: Inactive [place] F/P - Sink; E [address] [facility] Tra Bin Pyridostigmine Notes: (Same No Longer [place] as: Mestinon) Active 2019 [facility] Bacitracin 1 appl, Route: No Longer [place] RIGHT EYE, Active 2019 [facility] Q4H, Drug Center form: OINT, Start date: 09/11/18 12:00:00 CDT, Duration: 30 day, Stop date: 10/11/18 8:00:00 CDT Labetalol 20 mg, 4 mL, No Longer [place] Route: IV, Active 2019 Medical Drug form: Center INJ, Q10Min, Dosing Weight 91.378, kg, PRN Hypertension, Start date: 09/11/18 10:49:00 CDT, Duration: 30 day, Stop date: 10/11/18 10:48:00 CDT Hydralazine Notes: (Same [place] Longer [place] as: Active 2019 [facility] Apresoline) Center metoprolol Notes: (Same No Longer [place] as extended release as: Toprol XL) Active 2019 [facility] split Center tab, but do not crush. Ramipril Notes: (Same No Longer [place] as:Altace) Active 2019 Medical Center fondaparinux Notes: (Same No Longer [place] as: Arixtra) Active 2019 Medical Center Amlodipine Notes: (Same No Longer [place] as: Norvasc) Active 2019 Medical [place] Hydrochlorothiazid Notes: (Same Inactive [place] e as: 2019 Medical Hydrodiuril) Center With food. Docusate Sodium 50 Notes: (Same No Longer [place] MG / sennosides, as Senokot-S) Active 2019 edical FDC 8.6 MG Oral Equiv. to Center Tablet Cassidy-Colace. Furosemide 20 MG Notes: (Same No Longer [facility] Oral Tablet as: Lasix) Active 2019 Medical May cause GI Center upset. Give with food or milk. Gamunex-C 25 gm + Notes: For No Longer H [place] empty container 1 adults: use Active 2018 Ri dical bag IBW of XX used Center for XX mg/kg per protocol WASTE: F/P - Red; E -Red Lot # ____Mfg: (Gamunex - C) "blood product derivative" rosuvastatin Notes: (Same Inactive [place] As: Crestor) 2019 Medical [place] heparin sodium, Notes: porcine Inactive [facility] porcine 2500 heparin 2019 Medical UNT/ML Injectable Center Solution Lacri-Lube Notes: (Same No Longer [place] as: Active 2019 Medical Lacri-Lube, Center Puralube, Duratears Naturale, Artificial Tears, and Tears Again ) Pyridostigmine Notes: (Same No Longer 09/10[facility] as: Mestinon) Active 2019 Medical [place] Saline Flush 0.9% Notes: (Same No Longer 09/10[facility] as: BD Active 2019 Medical Posiflush) Center Benadryl Notes: (Same No Longer [facility] as: Benadryl) Active 2019 Medical Center Solu-Medrol Notes: (Same No Longer [facility] [place] as:Solu-MEDROL Active 2019 [facility] , A-Methapred) Center Zofran Notes: (Same No Longer [facility] as: Zofran) Active 2019 Medical MEDICATION Center WASTE Product Size: 4 mg Product Wasted: ___ mg Immunoglobulin G 36 gm, Route: Inactive [facility] IVPB, Drug 2019 Medical form: SOLN, [place] Daily, Dosing Weight 91.378, kg, Start date: 09/10/18 16:42:00 CDT, Duration: 5 day, Stop date: 09/15/18 9:00:00 CDT, Indication: Other see comments Insulin regular 60 units) No Longer [facility] WASTE: F/P - Active 2019 Medical Black; E - Center Municipal Trash Bin Stable for 28 days at room temperature Expires in days from Date Glucagon 1 mg, Route: No Longer [place] IM, Drug form: Active 2018 Medical PDR/INJ, [...] Saline Flush 0.9% Notes: (Same No Longer [place] as: BD Active 2018 [facility] Posiflush) [place] Dextrose 5% with 1,000 mL, No Longer [place] 0.9% NaCl IV 1,000 Rate: 75 Active 2019 Medi roger mL ml/hr, Infuse Center over: 13.3 hr, Route: IV, Dosing Weight 91.378 kg, Total Volume: 1,000, Start date: 09/10/18 0:20:00 CDT, Duration: 30 day, Stop date: 10/10/18 0:19:00 CDT, 1.99, m2 Streptococcus Notes: Shake No Longer [place] pneumoniae well prior to 2018 Medical serotype 1 use (Same as: [place] capsular antigen Prevnar 13) diphtheria [id number] protein conjugate vaccine / Streptococcus pneumoniae serotype 14 capsular antigen diphtheria [id number] protein conjugate vaccine / Streptococcus pneumoniae serotype 18C capsular antigen d insulin glargine Notes: (Same Inactive H as: Lanmadelynus) Do 2018 [facility] not hold [facility] insulin without contacting prescriber WASTE: F/P - Black; E - Municipal Trash Bin "single patient use only" Insulin Glargine 10 unit, On Hold 100 UNT/ML SUB-Q, 2019 [facility] Injectable Bedtime, 0 [facility] Solution Refill(s) Bacitracin 0.5 1 appl, Route: Inactive H UNT/MG Ophthalmic RIGHT EYE, 2019 [facility] orial Ointment TID, Drug [facility] form: OINT, Start date: 09/09/18 9:00:00 CDT, Duration: 30 day, Stop date: 10/08/18 17:00:00 CDT D5W 1/2NS 1,000 mL 1,000 mL, Inactive Rate: 75 2019 [facility] ml/hr, Infuse [facility] over: 13.3 hr, Route: IV, Dosing Weight 94.3 kg, Total Volume: 1,000, Start date: 09/09/18 7:53:00 CDT, Duration: 30 day, Stop date: 10/09/18 7:52:00 CDT, 2.02, m2 Acyclovir Notes: No Longer MEDICATION Active 2018 [facility] WASTE [facility] Product Size: 500 mg Product Wasted: _0__ mg 0.5 ML dulaglutide SUB-Q, every On Hold 3 MG/ML Prefilled Thursday, 2018 Kalia rial Syringe Refill(s) [facility] [Trulicity] Insulin Glargine 20 unit, On Hold 100 UNT/ML SUB-Q, 2019 [facility] Injectable Bedtime, # 3 [facility] Solution mL, 3 Refill(s) heparin Notes: porcine No Longer heparin Active 2018 [facility] Dextrose 50% 12.5 gm, 25 No Longer Syringe mL, Route: Active 2018 [facility] IVP, Drug [facility] Form: INJ, Dosing Weight 94.3, kg, PRN, PRN Blood Glucose Results, Start date: 09/08/18 9:49:00 CDT, Duration: 30 day, Stop date: 10/08/18 9:48:00 CDT Glucagon 1 mg, Route: No Longer IM, Drug form: Active 2019 [facility] PDR/INJ, PRN, City Dosing Weight 94.3, kg, PRN Blood Glucose Results, Start date: 09/08/18 9:49:00 CDT, Duration: 30 day, Stop date: 10/08/18 9:48:00 CDT Furosemide 20 MG Notes: (Same No Longer [facility] Oral Tablet as: Lasix) Active 2019 Medical May cause GI Center upset. Give with food or milk. Furosemide 20 MG 40 mg, Route: Inactive [facility] Oral Tablet PO, Drug form: 2019 Medic al TAB, Daily, Center Dosing Weight 111.6, kg, Start date: 08/19/18 21:00:00 CDT, Duration: 30 day, Stop date: 09/18/18 9:00:00 CDT clopidogrel 75 mg 75 mg = 1 tab, Active [place] oral tablet PO, Daily, # 2019 Medical 90 tab, 3 Center Refill(s), Pharmacy: [facility] [id number] rosuvastatin 10 mg 20 mg = 2 tab, Active [facility] oral tablet PO, Bedtime, # 2019 Medic al 180 tab, 3 Center Refill(s) ramipril 5 mg oral 10 mg = 2 cap, Active [facility] capsule PO, Q24H, # 2019 Medical 180 cap, 3 Center Refill(s) Insulin Glargine 20 unit, Active [place] as 100 UNT/ML SUB-Q, QPM, # 2019 Medical Injectable 15 mL, 3 Center Solution Refill(s) Furosemide 20 MG 20 mg = 1 tab, Active [facility] Oral Tablet PO, Every 2019 Medical Other Day, # Center 15 tab, 0 Refill(s) amLODIPine 5 mg 5 mg = 1 tab, Active [facility] oral tablet PO, Daily, # 2019 Medical 90 tab, 3 Center Refill(s) metoprolol 25 mg = 1 tab, Active [place] as tartrate 25 mg PO, BID, # 60 2019 Med ical oral tablet tab, 0 Center Refill(s) Furosemide 20 MG Notes: (Same Inactive 08/19/ H [place] Oral Tablet as: Lasix) 2019 Medical May cause GI Center upset. Give with food or milk. Ramipril Notes: (Same Inactive [facility] as:Altace) 2019 Medical Center Hydralazine 10 mg, [...] Medical Center Ativan Notes: (Same No Longer [place] as: Ativan) Active 2019 Medical Center Ramipril Notes: (Same No Longer [place] as:Altace) Active 2019 Medical Center Amlodipine Notes: [...] 21:00:00 CDT Crestor Notes: (Same No Longer [facility] As: Crestor) Active 2019 Medical Center insulin glargine Notes: Same No Longer [facility] as: Lantus) Do Active 2019 [facility] Center insulin without contacting prescriber WASTE: F/P - Black; E - Municipal Trash [facility] Ramipril Notes: (Same No Longer [place] as:Altace) Active 2019 Medical Center Amlodipine Notes: (Same No Longer [place] as: Norvasc) Active 2019 Medical Center loperamide [place]: [place] Imodium 2019 [facility] Imodium A-D EZ 2 mg, Route: Inactive [facility] Chews CHEW, Dosing 2019 Medical Weight 111.6, Center kg, BID, PRN as needed for loose stool, Start date: 08/17/18 13:34:00 CDT, Duration: 30 day, Stop date: 09/16/18 13:33:00 CDT Plavix Notes: (Same No Longer [facility] As: Plavix) Active 2019 Medical [place] benzonatate Notes: (Same [place] Long[place] As: Tessalon Active 2019 [facility] Per[place]) "Do Center Not Crush" Insulin regular 60 units) No Longer [facility] WASTE: F/P - Active 2018 Medical Black; E - Center Municipal Trash Bin Stable for 28 days at room temperature Expires in days from Date 3 ML Insulin 40 unit, No Longer Dougie Glargine 100 SUB-Q, Active 2019 Medical UNT/ML Prefilled Bedtime, # 3 Ce nter Syringe [Lantus] mL, 3 Refill(s) Insulin regular 60 units) Inactive [place]ie WASTE: F/P - 2019 Medical Black; E - Center [place] Trash [facility] Stable for 28 days at room temperature Expires in days from Date Dextrose 50% in 12.5 gm, 25 No Longer [facility] Water (bolus) IV mL, Route: Active 2018 [facility] IVP, Drug Center Form: INJ, Dosing Weight 113.636, kg, PRN, PRN Blood Glucose Results, Start date: 08/17/18 2:18:00 CDT, Duration: 30 day, Stop date: 09/16/18 2:17:00 CDT Glucagon 1 mg, Route: No Longer [facility] IM, Drug form: Active 2018 [facility] PDR/INJ, PRN, Center Dosing Weight 113.636, kg, PRN Blood Glucose Results, Start date: 08/17/18 2:18:00 CDT, Duration: 30 day, Stop date: 09/16/18 2:17:00 CDT Bisacodyl Notes: (Same No Longer [facility] As: Dulcolax, Active 2018 [facility] Bisco-Lax) [place] Labetalol 20 mg, 4 mL, No Longer [place] alexis Route: IVP, Active 2018 Medical Drug form: [place] INJ, Q10Min, Dosing Weight 113.636, kg, PRN Hypertension, Start date: 08/16/18 23:38:00 CDT, Duration: 30 day, Stop date: 09/15/18 23:37:00 CDT iodixanol 60 mL, Route: Inactive [facility] IVP, Drug 2018 Medical Form: SOLN, [place] Dosing Weight 113.636, kg, ONCALL, STAT, Start date: 08/16/18 20:39:00 CDT, Duration: 1 doses or times, Dose = 2.2ml/kg, Max dose = 100ml -- "To be infused by Radiology Staff ONLY" metoprolol 25 mg 25 mg, 1 tab, PO Active [facility] [place] oral tablet PO, BID, 60 2010 Medical tab, Center Substitution Allowed, TAB metoprolol 25 mg, 1 tab, PO No Longer [place] Route: PO, Active 2010 Medical Drug form: Center TAB, BID, Start date: 03/25/11 9:00:00, Duration: 30 day, Stop date: 04/23/11 17:00:00 hydrALAZINE 10 mg, 0.5 mL, IV No Longer Hernán [facility] Route: IV, Active 2010 Medical Drug form: [place] INJ, Q4H, PRN Elevated BP, Start date: 03/24/11 18:14:00, Duration: 30 day, Stop date: 04/23/11 18:13:00, Systolic Blood pressure greater than 160 mmHg magnesium sulfate 2 gm, 50 mL, IVPB No Longer Hernán [facility] Route: IVPB, Active 2010 Medical Drug form: [place] INJ, ONCE, Total dose = 2 gm, Start date: 03/24/11 17:59:00, Duration: 1 doses or times, Stop date: 03/24/11 17:59:00 NS 1,000 mL 1,000 mL, IV No Longer Hernán [facility] Rate: 100 Active 2010 Medical ml/hr, Infuse Center over: 10 hr, Route: IV, Total Volume: 1,000, Start date: 03/24/11 17:56:00, Duration: 30 day, Stop date: 04/23/11 17:55:00 Novolin N 10 unit, 0.1 SUB-Q No Longer [place] mL, Route: Active 2010 Medical SUB-Q, Drug Center form: INJ, BID, Start date: 03/24/11 9:00:00, Duration: 30 day, Stop date: 04/22/11 17:00:00 [place] Thyroid 120 mg, 2 tab, PO No Longer Hernán [facility] Route: PO, Active 2010 Medical Drug form: [place] TAB, Before Breakfast, Start date: 03/24/11 8:30:00, Duration: 30 day, Stop date: 04/23/11 7:30:00 potassium chloride 40 mEq, 2 tab, PO No Longer Hernán 03/02 [facility] Route: PO, Active 2010 Medical Drug form: [place] ERTAB, ONCE, Start date: 03/23/11 19:12:00, Stop date: 03/23/11 19:12:00 senna 8.6 mg oral 8.6 mg, 1 tab, PO No Longer Hernán 03/23 [facility] tablet Route: PO, Active 2010 Medical Drug Form: [place] TAB, Daily, Start date: 03/23/11 9:00:00, Duration: 30 day, Stop date: 04/21/11 9:00:00 diphenhydrAMINE 25 mg, 1 cap, PO No Longer Hernán [facility] Route: PO, Active 2010 Medical Drug form: Center CAP, Q6H, PRN Itching, Start date: 03/23/11 7:37:00, Duration: 30 day, Stop date: 04/22/11 7:36:00 [place] Thyroid 120 mg, 0.5 PO No Longer Hernán [facility] tab, Route: Active 2010 Medical PO, Drug form: Center TAB, Before Breakfast, Start date: 03/23/11 7:30:00, Duration: 30 day, Stop date: 04/21/11 7:30:00 heparin 5,000 unit, 1 SUB-Q No Longer Hernán [facility] mL, Route: Active 2010 Medical SUB-Q, Drug Center form: INJ, Q12H, Start date: 03/22/11 21:00:00, Duration: 30 day, Stop date: 04/21/11 9:00:00 Crestor 20 mg, 2 tab, PO No Longer Hernán [facility] Route: PO, Active 2010 Medical Drug form: Center TAB, Bedtime, Start date: 03/22/11 21:00:00, Duration: 30 day, Stop date: 04/20/11 21:00:00 Keppra 500 mg oral 500 mg, 1 tab, PO No Longer Hernán 03/02 [facility] tablet Route: PO, Active 2010 Medical Drug form: Center TAB, Q12H, Start date: 03/22/11 21:00:00, Duration: 30 day, Stop date: 04/21/11 9:00:00 Vest 5/325 oral 1 tab, Route: PO No Longer Hernán [facility] tablet PO, Drug Form: Active 2010 [...] mg, 1 tab, PO No Longer Hernán [place] Route: PO, Active 2010 Medical Drug form: [place] TAB, BID, Start date: 03/22/11 17:00:00, Duration: 30 day, Stop date: 04/21/11 9:00:00 metoprolol 12.5 mg, 1 ea, PO No Longer [place] Route: PO, Active 2010 Medical Drug form: [place] TAB, BID, Start date: 03/22/11 17:00:00, Duration: 30 day, Stop date: 04/21/11 9:00:00 docusate sodium 100 mg, 1 cap, PO No Longer Hernán [place] 100 mg oral Route: PO, Active 2010 Medical capsule Drug form: [place] CAP, BID, Start date: 03/22/11 17:00:00, Duration: [...] gm, 50 mL, IVP No Longer Hernán [place] Syringe Route: IVP, Active 2010 Medical Drug Form: [place] INJ, PRN, PRN Blood Glucose Results, Start date: 03/22/11 16:28:00, Duration: 30 day, Stop date: 04/21/11 15:27:00 glucagon 1 mg, Route: IM No Longer Hernán [place] IM, Drug form: Active 2010 Medical PDR/INJ, PRN, [place] PRN Blood Glucose Results, Priority: STAT, Start date: 03/22/11 16:28:00, Duration: 30 day, Stop date: 04/21/11 15:27:00 calcium carbonate 500 mg, 1 tab, PO No Longer Hernán 03/22 [place] Route: PO, Active 2010 Medical Drug form: [place] CHEWTAB, TID, PRN as needed for indigestion, Start date: 03/22/11 16:19:00, Duration: 30 day, Stop date: 04/21/11 16:18:00 ondansetron 4 mg, 2 mL, IVP No Longer [place] Route: IVP, Active 2010 Medical Drug form: [place] INJ, ONCE, Priority: STAT, Start date: 03/22/11 10:12:00, Stop date: 03/22/11 10:12:00 morphine Sulfate 4 mg, 1 mL, IVP No Longer [place] 03/22[facility] Route: IVP, Active 2010 Medical Drug form: [place] INJ, ONCE, Priority: STAT, Start date: 03/22/11 10:11:00, Stop date: 03/22/11 10:11:00 magnesium oxide 400 mg, 1 tab, PO Active Marlonimileyad Dougie 400 mg oral tablet PO, BID, 2010 Me dical tab, Center Substitution Allowed Benadryl 25 mg, 1 cap, PO No Longer Neymar Osmana s Route: PO, Active 2010 Medical Drug form: [place] CAP, Q4H, PRN Itching, Start date: 03/15/11 6:21:00, Duration: 30 day, Stop date: 04/14/11 6:20:00 trazodone 50 mg 50 mg, 1 tab, PO No Longer Marlonimileyad [place] oral tablet Route: PO, Active 2010 Medical Drug form: [place] TAB, Bedtime, Start date: 03/14/11 21:00:00, Duration: 30 day, Stop date: 04/12/11 21:00:00 NS 1,000 mL 1,000 mL, IV No Longer Alikhan Dougie Rate: 75 Active 2010 Medical ml/hr, Infuse [place] over: 13.3 hr, Route: IV, Total Volume: 1,000, Start date: 03/14/11 17:02:00, Duration: 30 day, Stop date: 04/13/11 17:01:00 senna 8.6 mg oral 8.6 mg, 1 tab, PO No Longer Korimilli Dougie tablet Route: PO, Active 2010 Medical Drug Form: Center TAB, Daily, Start date: 03/14/11 9:00:00, Duration: 30 day, Stop date: 04/12/11 9:00:00 metoprolol 12.5 mg, 1 ea, PO No Longer Ash [place]ie Route: PO, Active 2010 Medical Drug form: Center TAB, BID, Start date: 03/14/11 9:00:00, Duration: 30 day, Stop date: 04/12/11 17:00:00 Crestor 20 mg, 2 tab, PO No Longer [place] Route: PO, Active 2010 Medical Drug form: Center TAB, Daily, Start date: 03/14/11 9:00:00, Duration: 30 day, Stop date: 04/12/11 9:00:00 Keppra 500 mg oral 500 mg, 1 tab, PO No Longer [place]ie tablet Route: PO, Active 2010 Medical Drug form: Center TAB, Q12H, Start date: 03/14/11 9:00:00, Duration: 30 day, Stop date: 04/12/11 21:00:00 Novolin N 10 unit, 0.1 SUB-Q No Longer Ash [place] mL, Route: Active 2010 Medical SUB-Q, Drug Center form: INJ, BID, Start date: 03/14/11 9:00:00, Duration: 30 day, Stop date: 04/12/11 17:00:00 docusate sodium 100 mg, 1 cap, PO No Longer [place] 03/14/ [place] 100 mg oral Route: PO, Active 2010 Medical capsule Drug form: Center CAP, BID, Start date: 03/14/11 9:00:00, Duration: 30 day, Stop date: 04/12/11 17:00:00 calcium carbonate 500 mg, 1 tab, PO No Longer Ash 10 4/ [facility] Route: PO, Active 2010 Medical Drug form: [place] CHEWTAB, TID, Start date: 03/14/11 9:00:00, Duration: 30 day, Stop date: 04/12/11 17:00:00 heparin 5,000 unit, 1 SUB-Q No Longer [place] mL, Route: Active 2010 Medical SUB-Q, Drug Center form: INJ, Q8H, Start date: 03/14/11 8:00:00, Duration: 30 day, Stop date: 04/13/11 0:00:00 ciprofloxacin 750 mg, 3 tab, PO No Longer Thom[place]ons [facility] Route: PO, Active 2010 Medical Drug form: [place] TAB, [id number], Start date: 03/14/11 7:00:00, Duration: 30 day, Stop date: 04/12/11 19:00:00 cefepime 2 gm, Route: IV [facility] form: Active 2010 Medical INJ, [id number], Center Start date: 03/14/11 7:00:00, Duration: 30 day, Stop date: 04/12/11 23:00:00 [place] Thyroid 120 mg, 2 tab, PO No Longer Thom[place]ons [facility] Route: PO, Active 2010 Medical Drug form: [place] TAB, [id number], Start date: 03/14/11 6:45:00, Duration: 30 day, Stop date: 04/13/11 6:30:00 glucagon 1 mg, Route: IM No Longer [place] IM, Drug form: Active 2010 Medical PDR/INJ, PRN, Center PRN Blood Glucose Results, Priority: STAT, Start date: 03/14/11 6:06:00, Duration: 30 day, Stop date: 04/13/11 5:05:00 Dextrose 50% 25 gm, 50 mL, IVP No Longer [place] [facility] Syringe Route: IVP, Active 2010 Medical Drug Form: Center INJ, PRN, PRN Blood Glucose Results, Start date: 03/14/11 6:06:00, Duration: 30 day, Stop date: 04/13/11 5:05:00 insulin aspart 4 unit, 0.04 SUB-Q No Longer [place] [facility] [place] mL, Route: Active 2010 Medical SUB-Q, Drug Center form: SOLN, TID-Before Meals, PRN Blood Glucose Results, Start date: 03/14/11 6:06:00, Duration: 30 day, Stop date: 04/13/11 6:05:00 Vest 5/325 oral 1 tab, Route: PO No Longer Ash [facility] tablet PO, Drug Form: Active 2010 Medical TAB, Q4H, PRN Center as needed for pain, Start date: 03/14/11 6:02:00, Duration: 30 day, Stop date: 04/13/11 6:01:00 magnesium sulfate 2 gm, 50 mL, IVPB No Longer [place]ons [place] Route: IVPB, Active 2010 Medical Drug form: Center INJ, ONCE, Total dose = 2 gm, Start date: 03/14/11 6:01:00, Duration: 1 doses or times, Stop date: 03/14/11 6:01:00 Sodium Chloride 1,000 mL, IV No Longer [place] 0.9% (Bolus) IV Rate: 1,000 Active 2010 [facility] 1,000 mL ml/hr, Infuse Center over: 1 hr, Route: IV, Total Volume: 1,000, Bolus Dose, Priority: STAT, Start date: 03/14/11 4:12:00, Duration: 1 doses or times, Stop date: 03/14/11 5:11:00 Maxipime 2 gm, Route: IVPB No Longer Burden [facility] IVPB, Drug Active 2010 Medical form: INJ, Center ONCE, Start date: 03/13/11 23:52:00, Stop date: 03/13/11 23:52:00 Cipro 750 mg, 3 tab, PO No Longer [place] Route: PO, Active 2010 Medical Drug form: Center TAB, ONCE, Start date: 03/13/11 23:51:00, Stop date: 03/13/11 23:51:00 Sodium Chloride 1,000 mL, IV No Longer [place] 0.9% (Bolus) IV Rate: 1,000 Active 2010 [facility] roger 1,000 mL ml/hr, Infuse [place] over: 1 hr, Route: IV, Total Volume: 1,000, Bolus Dose, Priority: STAT, Start date: 03/13/11 23:20:00, Duration: 1 doses or times, Stop date: 03/14/11 0:19:00 morphine Sulfate 4 mg, 1 mL, IVP No Longer Daftary [facility] Route: IVP, Active 2010 Medical Drug form: [place] INJ, ONCE, Priority: STAT, Start date: 03/13/11 22:47:00, Stop date: 03/13/11 22:47:00 Lasix Substitution No Longer [place] Allowed Active 2010 [facility] metFORmin Substitution [place] Longer [place] Allowed Active 2010 [facility] metoprolol 12.5 mg, 1 ea, PO No Longer [place] Route: PO, Active 2010 Medical Drug form: [place] TAB, BID, Start date: 03/06/11 20:00:00, Duration: 30 day, Stop date: 04/05/11 8:00:00 metoprolol 25 mg 12.5 mg, 0.5 PO Active Rizvi [place] oral tablet ea, PO, BID, 2010 Medical 60 tab, Center Substitution Allowed, TAB trazodone 50 mg 50 mg, 1 tab, PO Active Rizvi [place] oral tablet PO, Bedtime, 2010 Medical 40 tab, Center Substitution Allowed, TAB Vest 5/325 oral 1 tab, PO, PO Active [place]izvi [place] tablet Q4H, PRN, 40 2010 Medical tab, Pain, Center Substitution Allowed, Maintenance, TAB Novolin N 100 10 unit, SUB-Q Active Rizvi [place]ie units/mL SUB-Q, BID, 10 2010 Medical subcutaneous ml, [place] injection Substitution Allowed, SUSP [place] Thyroid 60 120 mg, 2 tab, PO Active Rizvi [place] mg oral tablet PO, Before 2010 Medica l Breakfast, 60 [place] tab, Substitution Allowed, TAB Keppra 500 mg oral 500 mg, 1 tab, PO Active Rizvi [place] tablet PO, Q12H, 60 2010 Medical tab, Center Substitution Allowed, TAB Crestor 20 mg oral 20 mg, 1 tab, PO Active Rizvi [place] tablet PO, Daily, 2010 Medical tab, Center Substitution Allowed, TAB senna 8.6 mg oral 8.6 mg, 1 tab, PO Active Rizvi [place] tablet PO, Daily, 2010 Medical tab, Center Substitution Allowed, Maintenance, TAB docusate sodium 100 mg, 1 cap, PO Active [place] [facility] [place] 100 mg oral PO, BID, 30 2010 Medical capsule cap, Center Substitution Allowed, CAP ciprofloxacin 250 750 mg, 3 tab, PO Active [place] mg oral tablet PO, Q12H, 40 2010 Medi roger doses or Center times, Substitution Allowed, TAB Maxipime 2 g 2 gm, IV, Q8H, IV Active [place] injection 60 doses or 2010 Medical times, Center Substitution Allowed calcium carbonate 500 mg, 1 tab, PO Active [place] 500 mg oral PO, TID, PRN, 2010 Medica l tablet, chewable 30 tab, as Cent er needed for indigestion, Substitution Allowed, CHEWTAB Lasix 10 mg, 0.5 PO No Longer Aaron [facility] tab, Route: Active 2010 Medical PO, Drug form: [place] TAB, Daily, Start date: 03/06/11 8:00:00, Duration: 30 day, Stop date: 04/04/11 8:00:00 Norvasc 5 mg, Route: PO No Longer Crowe [facility] PO, Daily, Active 2010 Medical Start date: [place] 03/02/11 8:00:00, Duration: 30 day, Stop date: 03/31/11 8:00:00 trazodone 50 mg 50 mg, 1 tab, PO No Longer Zeider [facility] oral tablet Route: PO, Active 2010 Medical Drug form: [place] TAB, Bedtime, Start date: 02/27/11 21:00:00, Duration: 30 day, Stop date: 03/28/11 21:00:00 calcium carbonate 500 mg, 1 tab, PO No Longer Zeider 02/27 [facility] Route: PO, Active 2010 Medical Drug form: [place] TAB, TID, Start date: 02/27/11 8:00:00, Duration: 7 day, Stop date: 03/05/11 17:00:00 senna 8.6 mg, 1 tab, PO No Longer [place] Route: PO, Active 2010 Medical Drug Form: Center TAB, Daily, Start date: 02/27/11 8:00:00, Duration: 30 day, Stop date: 03/28/11 8:00:00 Lasix 40 mg oral 20 mg, 0.5 PO No Longer Rizvi [facility] tablet tab, Route: Active 2010 Medical PO, Drug form: Center TAB, Daily, Start date: 02/27/11 8:00:00, Stop date: 03/28/11 8:00:00 [place] Thyroid 120 mg, 2 tab, PO No Longer Zeider [facility] Route: PO, Active 2010 Medical Drug form: Center TAB, Before Breakfast, Start date: 02/27/11 6:30:00, Duration: 30 day, Stop date: 03/28/11 6:30:00 Insulin regular 5 unit, 0.05 SUB-Q No Longer Crowe [facility] mL, Route: Active 2010 Medical SUB-Q, Drug Center form: SOLN, TID-Before Meals, Start date: 02/27/11 6:30:00, Stop date: 03/28/11 16:30:00 heparin 5000 5,000 unit, 1 SUB-Q No Longer Zeider [facility] units/mL mL, Route: Active 2010 Medical injectable SUB-Q, Drug Center solution form: INJ, Q8H, Start date: 02/27/11 0:00:00, Duration: 30 day, Stop date: 03/28/11 16:00:00 hydrALAZINE 25 mg 25 mg, 1 tab, PO No Longer Crowe [facility] oral tablet Route: PO, Active 2010 Medical Drug form: Center TAB, Q8H, Start date: 02/27/11 0:00:00, Duration: 30 day, Stop date: 03/28/11 16:00:00 ciprofloxacin 750 mg, 3 tab, PO No Longer Zeider [facility] Route: PO, Active 2010 Medical Drug form: Center TAB, Q12H, Priority: Routine, Start date: 02/26/11 23:00:00, Duration: 30 day, Stop date: 03/28/11 11:00:00 Crestor 20 mg, 2 tab, PO No Longer Zeider [facility] Route: PO, Active 2010 Medical Drug form: Center TAB, Daily, Start date: 02/26/11 21:00:00, Duration: 30 day, Stop date: 03/27/11 21:00:00 levetiracetam 500 mg, 1 tab, PO No Longer Zeider [facility] Route: PO, Active 2010 Medical Drug form: [place] TAB, Q12H, Start date: 02/26/11 21:00:00, Duration: 30 day, Stop date: 03/28/11 9:00:00 magnesium oxide 400 mg, 1 tab, PO No Longer Zeider [facility] Route: PO, Active 2010 Medical Drug form: Center TAB, BID, Start date: 02/26/11 20:00:00, Duration: 5 day, Stop date: 03/03/11 8:00:00 insulin 10 unit, 0.1 SUB-Q No Longer Zeider [facility] isophane-NPH mL, Route: Active 2010 Medical SUB-Q, Drug Center form: INJ, BID, Start date: 02/26/11 20:00:00, Duration: 30 day, Stop date: 03/28/11 8:00:00 docusate sodium 100 mg, 1 cap, PO No Longer Zeider [facility] 100 mg oral Route: PO, Active 2010 Medical capsule Drug form: [place] CAP, BID, Start date: 02/26/11 20:00:00, Duration: 30 day, Stop date: 03/28/11 8:00:00 Prinivil 20 mg, 1 tab, PO No Longer Crowe [place] Route: PO, Active 2010 Medical Drug form: Center TAB, BID, Start date: 02/26/11 20:00:00, Stop date: 03/28/11 8:00:00 cefepime 2 gm, Route: IVPB No Longer Zeider [facility] IVPB, Drug Active 2010 Medical form: INJ, Center [id number], Start date: 02/26/11 18:00:00, Duration: 30 day, Stop date: 03/28/11 10:00:00 ondansetron 4 mg, 2 mL, IVP No Longer Zeider [place] Route: IVP, Active 2010 Medical Drug form: [place] INJ, ONCE, PRN Nausea & Vomiting, Start date: 02/26/11 17:39:00 Saline Flush 0.9% 5 ml, Route: IVP No Longer Zeider [place] IVP, Drug Active 2010 Medical Form: INJ, Center PRN, PRN Line Flush, Start date: 02/26/11 17:39:00, Duration: 30 day, Stop date: 03/28/11 17:38:00 calcium carbonate 500 mg, 1 tab, CHEW No Longer Zeider 02/26 [place] Route: CHEW, Active 2010 Medical Drug form: [place] CHEWTAB, TID, PRN Indigestion, Start date: 02/26/11 17:39:00, Duration: 30 day, Stop date: 03/28/11 17:38:00 Vest 5/325 oral 1 tab, Route: PO No Longer Zeider [facility] tablet PO, Drug Form: Active 2010 Medical TAB, Q4H, PRN Center Pain, Start date: 02/26/11 17:39:00, Duration: 30 day, Stop date: 03/28/11 17:38:00 acetaminophen 650 mg, 20.3 PO No Longer Zeider [place] mL, Route: PO, Active 2010 Medical Drug form: [place] LIQ, Q4H, PRN Fever, Start date: 02/26/11 17:39:00, Duration: 30 day, Stop date: 03/28/11 17:38:00 Vest 7.5/325 oral 1 tab, Route: PO No Longer Zeider 02/26 [facility] tablet PO, Drug Form: Active 2010 Medical TAB, Q4H, PRN Center Pain, Start date: 02/26/11 17:39:00, Duration: 30 day, Stop date: 03/28/11 17:38:00 Insulin regular 2 unit, 0.02 SUB-Q No Longer Zeider H [place] mL, Route: Active 2010 Medical SUB-Q, Drug Center form: SOLN, TID-Before Meals, PRN Blood Glucose Results, Start date: 02/26/11 17:39:00, Duration: 30 day, Stop date: 03/28/11 17:38:00 [place] Thyroid 60 120 mg, 2 tab, PO Active [place] 02/26/ [place] mg oral tablet PO, Before 2010 Medica l Breakfast, 30 Center tab, Substitution Allowed, TAB [...] mg oral tablet PO, Q12H, 30 2010 Medi roger tab, Center Substitution Allowed, TAB hydrALAZINE 25 mg 25 mg, 1 tab, PO Active [place] oral tablet PO, Q8H, 30 2010 Medical tab, Center Substitution Allowed, TAB heparin 5000 5000 units, SUB-Q Active [place] units/mL SUB-Q, Q8H, 30 2010 Medical injectable doses or Center solution times, Substitution Allowed, SOLN Lasix 40 mg oral 40 mg, 1 tab, PO Active [place] 02/26/ M H [place] tablet PO, Daily, 2010 Medical tab, Center Substitution Allowed, TAB docusate sodium 100 mg, 1 cap, PO Active [place] 02/26/ M H [place] 100 mg oral PO, BID, 30 2010 Medical capsule cap, Center Substitution Allowed, CAP ciprofloxacin 250 750 mg, 3 tab, PO Active [place] 02/26/ [place] mg oral tablet PO, Q12H, 30 2010 Medi roger doses or Center times, Substitution Allowed, TAB Maxipime 2 g 2 gm, IV, Q8H, IV Active [place] injection 1 doses or 2010 Medical times, Center Substitution Allowed calcium carbonate 500 mg, 1 tab, PO Active Christianson [place] 500 mg oral PO, TID, 2010 Medical tablet, chewable tab, Center Substitution Allowed, CHEWTAB Fleet Enema 133 ml, Route: [place] No Longer Joel [facility] [place], Drug Form: Active 2010 Medical JEANNIE, ONCE, Center Start date: 02/24/11 14:38:00, Stop date: 02/24/11 14:38:00 bisacodyl 10 mg, 1 supp, [place] Route: [place], Active 2010 Medical Drug form: Center SUPP, ONCE, Start date: 02/24/11 14:38:00, Stop date: 02/24/11 14:38:00 magnesium citrate 300 ml, Route: PO No Longer Aicha 02/24 [facility] PO, Drug Form: Active 2010 Medical LIQ, ONCE, Center Start date: 02/24/11 13:03:00, Stop date: 02/24/11 13:03:00 calcium carbonate 500 mg, 1 tab, PO No Longer Aaron 02/24 [facility] Route: PO, Active 2010 Medical Drug [...] 3 unit, 0.03 SUB-Q No Longer Aaron [facility] [place] mL, Route: Active 2010 Medical SUB-Q, Drug Center form: SOLN, TID-Before Meals, Start date: 02/23/11 16:30:00, Duration: 30 day, Stop date: 03/25/11 11:30:00 ciprofloxacin 750 mg, 3 tab, PO No Longer Aaron [facility] [place] Route: PO, Active 2010 Medical Drug form: Center TAB, Q12H, Priority: Routine, Start date: 02/23/11 13:00:00, Duration: 30 day, Stop date: 03/25/11 11:00:00 insulin 10 unit, 0.1 SUB-Q No Longer Aaron [facility] isophane-NPH mL, Route: Active 2010 Medical SUB-Q, Drug Center form: INJ, BID, Start date: 02/21/11 17:00:00, Stop date: 03/23/11 9:00:00 magnesium oxide 400 mg, 1 tab, PO No Longer Aaron [facility] Route: PO, Active 2010 Medical Drug form: Center TAB, BID, Start date: 02/21/11 17:00:00, Duration: 5 day, Stop date: 02/26/11 9:00:00 calcium carbonate 500 mg, 1 tab, CHEW No Longer Aaron 02/21 [facility] Route: CHEW, Active 2010 Medical Drug form: Center CHEWTAB, TID, PRN Indigestion, Start date: 02/21/11 14:26:00, Duration: 30 day, Stop date: 03/23/11 14:25:00 cefepime 2 gm, Route: IVPB No Longer Christianson [facility] IVPB, Drug Active 2010 Medical form: INJ, Center [id number], Start date: 02/20/11 18:00:00, Stop date: 03/22/11 10:00:00 Lasix 40 mg oral 40 mg, 1 tab, PO No Longer Aaron [facility] tablet Route: PO, Active 2010 Medical Drug form: Center TAB, Daily, Start date: 02/20/11 17:00:00, Stop date: 03/22/11 9:00:00 heparin 5000 5,000 unit, 1 SUB-Q No Longer Salazar [facility] units/mL mL, Route: Active 2010 Medical injectable SUB-Q, Drug Center solution form: INJ, Q8H, Start date: 02/20/11 16:00:00, Duration: 30 day, Stop date: 03/22/11 8:00:00 Vest 7.5/325 oral 1 tab, Route: PO No Longer Salazar 02/20 [facility] tablet PO, Drug Form: Active 2010 Medical TAB, Q4H, PRN Center Pain, Start date: 02/20/11 11:07:00, Duration: 30 day, Stop date: 03/22/11 11:06:00 Crestor 20 mg, 2 tab, PO No Longer White [facility] Route: PO, Active 2010 Medical Drug form: Center TAB, Daily, Start date: 02/20/11 9:00:00, Duration: 30 day, Stop date: 03/21/11 9:00:00 senna 8.6 mg, 1 tab, PO No Longer White [place]man[place] s Route: PO, Active 2010 Medical Drug Form: [place] TAB, Daily, Start date: 02/20/11 9:00:00, Duration: 30 day, Stop date: 03/21/11 9:00:00 [place] Thyroid 120 mg, 2 tab, PO No Longer Christopher [facility] Route: PO, Active 2010 Medical Drug form: [place] TAB, Before Breakfast, Start date: 02/20/11 7:30:00, Duration: 30 day, Stop date: 03/21/11 7:30:00 vancomycin 1 gm, Route: IVPB No Longer Christianson Osman as IVPB, Drug Active 2010 Medical form: INJ, [place] [id number], Priority: NOW, Start date: 02/20/11 6:44:00, Duration: 30 day, Stop date: 03/21/11 22:44:00 magnesium sulfate 2 gm, 50 mL, IVPB No Longer Day [facility] Route: IVPB, Active 2010 Medical Drug form: [place] INJ, Q2H, Start date: 02/20/11 5:00:00, Duration: 2 doses or times, Stop date: 02/20/11 7:00:00 potassium chloride 20 mEq, 100 IVPB No Longer Day [facility] mL, Route: Active 2010 Medical IVPB, Q2H, Center Start date: 02/20/11 4:00:00, Duration: 2 doses or times, Stop date: 02/20/11 6:00:00 magnesium sulfate 4 gm, 100 mL, IVPB No Longer Day [facility] Route: IVPB, Active 2010 Medical Drug form: [place] INJ, ONCE, Start date: 02/20/11 4:00:00, Stop date: 02/20/11 4:00:00 labetalol 5 mg, 1 mL, IV No Longer [facility] Route: IV, Active 2010 Medical Drug form: [place] INJ, Q10Min, PRN Hypertension, Start date: 02/20/11 1:56:00, Duration: 30 day, Stop date: 03/22/11 1:55:00 NS 500 mL 500 mL, Rate: IV No Longer [facility] Osman as 1,000 ml/hr, Active 2010 Medical Infuse over: [place] 0.5 hr, Route: IV, Total Volume: 500, Start date: 02/19/11 22:07:00, Duration: 1 doses or times, Stop date: 02/19/11 22:36:00, Bolus DoseBolus Dose calcium chloride 1,000 mg, 10 IV No Longer [facility] mL, Route: IV, Active 2010 Medical Drug form: [place] INJ, ONCE, Start date: 02/19/11 21:18:00, Stop date: 02/19/11 21:18:00 Tylenol 650 mg, 2 tab, PO No Longer Salazar Sheldon s Route: PO, Active 2010 Medical Drug form: [place] TAB, Q4H, PRN Fever, Start date: 02/19/11 21:13:00, Duration: 30 day, Stop date: 03/21/11 21:12:00 levetiracetam 500 mg, 1 tab, PO No Longer O[place] [facility] Route: PO, Active 2010 Medical Drug form: [place] TAB, Q12H, Start date: 02/19/11 21:00:00, Duration: 30 day, Stop date: 03/21/11 9:00:00 acetaminophen 650 mg, 20.3 PO No Longer [facility] Dougie mL, Route: PO, Active 2010 Medical Drug form: [place] LIQ, Q4H, PRN Fever, Start date: 02/19/11 20:04:00, Duration: 30 day, Stop date: 03/21/11 20:03:00 Prinivil 10 mg, 1 tab, PO No Longer Aaron Sheldon s Route: PO, Active 2010 Medical Drug form: Center TAB, BID, Start date: 02/19/11 17:00:00, Duration: 30 day, Stop date: 03/20/11 17:00:00 hydrALAZINE 25 mg 25 mg, 1 tab, PO No Longer Aaron Doug[place] oral tablet Route: PO, Active 2010 Medical Drug form: Center TAB, Q8H, Start date: 02/19/11 17:00:00, Stop date: 03/21/11 8:00:00 docusate sodium 100 mg, 1 cap, PO No Longer White [place] 100 mg oral Route: PO, Active 2010 Medical capsule Drug form: [place] CAP, BID, Start date: 02/19/11 17:00:00, Duration: 30 day, Stop date: 03/21/11 9:00:00 Vest 5/325 oral 1 tab, Route: PO No Longer White Dougie tablet PO, Drug Form: Active 2010 Medical TAB, Q4H, PRN [place] Pain, Start date: 02/19/11 16:14:00, Duration: 30 day, Stop date: 03/21/11 16:13:00 ciprofloxacin 400 mg, 200 IVPB No Longer [place] mL, Route: Active 2010 Medical IVPB, Drug Center form: INJ, [id number], Priority: NOW, Start date: 02/19/11 16:10:00, Duration: 30 day, Stop date: 03/21/11 4:10:00 vancomycin 2 gm, Route: IVPB No Longer Dmitri Osman as IVPB, ONCE, Active 2010 Medical Priority: Center STAT, Start date: 02/19/11 16:02:00, Stop date: 02/19/11 16:02:00 Insulin regular 100 mL, Rate: IVPB No Longer Christopher Dougie 100 unit + Sodium Start at [...] regular 7 unit, 0.07 SUB-Q No Longer [place] [facility] human recombinant mL, Route: Active 2010 Med ical 100 units/mL SUB-Q, Drug Center injectable form: SOLN, solution PRN, PRN Abnormal Lab Result, Start date: 02/19/11 15:51:00, Duration: 30 day, Stop date: 03/21/11 15:50:00 Dextrose 50% 6.25 gm, 12.5 IVP No Longer O[place] [facility] Syringe mL, Route: Active 2010 [facility] IVP, Drug Center Form: INJ, PRN, PRN Abnormal Lab Result, Start date: 02/19/11 15:51:00, Duration: 30 day, Stop date: 03/21/11 15:50:00 Saline Flush 0.9% 5 ml, Route: IVP No Longer Orem [facility] IVP, Drug Active 2010 Medical Form: INJ, Center PRN, PRN Line Flush, Start date: 02/19/11 15:51:00, Duration: 30 day, Stop date: 03/21/11 15:50:00 morphine Sulfate 2 mg, 1 mL, IVP No Longer [place] [facility] Route: IVP, Active 2010 Medical Drug form: Center INJ, Q1H, PRN Pain Score 7-10, Start date: 02/19/11 15:51:00, Duration: 30 day, Stop date: 03/21/11 15:50:00 flumazenil 0.2 mg, 2 mL, IVP No Longer [place] Route: IVP, Active 2010 Medical Drug form: Center INJ, PRN, PRN Other -See Comment, Initial dose, Start date: 02/19/11 14:18:00, Duration: 30 day, Stop date: 03/21/11 14:17:00 naloxone 0.04 mg, 0.1 IVP No Longer [place] mL, Route: Active 2010 Medical IVP, Drug Center form: INJ, Q2MIN, PRN Narcotic Reversal, Start date: 02/19/11 14:18:00, Duration: 8 doses or times, Stop date: 02/20/11 14:18:00 hydromorphone 0.3 mg, 0.15 IVP No Longer Salazar [place] mL, Route: Active 2010 Medical IVP, Drug Center form: INJ, Q5Min, PRN Pain, Start date: 02/19/11 14:18:00, Duration: 5 doses or times, Stop date: Limited # of times ondansetron 4 mg, 2 mL, IVP No Longer Herman Osman as Route: IVP, Active 2010 Medical Drug form: Center INJ, ONCE, PRN Nausea & Vomiting, Start date: 02/19/11 14:18:00 labetalol 5 mg, 1 mL, IVP No Longer Herman [facility] Route: IVP, Active 2010 Medical Drug form: Center INJ, Q5Min, PRN Elevated BP, Start date: 02/19/11 14:18:00, Duration: 5 doses or times, Stop date: 02/20/11 0:00:00 vancomycin 1 gm, Route: IVPB No Longer Rizvi Osman as IVPB, Drug Active 2010 Medical form: INJ, Center [id number], Start date: 02/19/11 14:00:00, Duration: 30 day, Stop date: 03/21/11 2:00:00 ondansetron 2 4 mg, 2 mL, IVP Active [facility] Osman as mg/mL injectable IVP, Q8H, PRN, 2010 Medical solution 30 mL, Nausea Center & Vomiting, Substitution Allowed, SOLN Milk of Magnesia 1.2 gm, 5 mL, PO Active Zemoline [facility] 24% oral PO, Daily, 2010 Medical concentrate PRN, 150 mL, Center Constipation, Substitution Allowed, Maintenance, CONC Prinivil 10 mg 10 mg, 1 tab, PO Active Zeider [facility] oral tablet PO, QPM, 30 2010 Medical tab, Center Substitution Allowed, TAB Keppra 500 mg oral 500 mg, 1 tab, PO Active Zemoline [facility] tablet PO, Q12H, 60 2010 Medical tab, Center Substitution Allowed, TAB Humulin N Pen 100 10 unit, SUB-Q Active [place] units/mL SUB-Q, BID, 3 2010 Medical subcutaneous ml, Center injection Substitution Allowed, SUSP Humulin N Pen 100 10 unit, SUB-Q Active [facility] [place] units/mL SUB-Q, BID, 3 2010 Medical subcutaneous ml, Center injection Substitution Allowed, SUSP hydrALAZINE 25 mg 25 mg, 1 tab, PO Active [facility] [place] oral tablet PO, BID, 60 2010 Medical tab, Center Substitution Allowed, TAB bisacodyl 10 mg 10 mg, 1 supp, [place] Active [facility] rectal suppository [place], Bedtime, 2010 Medical PRN, 30 supp, Center Constipation, Substitution Allowed, SUPP Vest 5/325 oral 1 tab, PO, PO Active [facility] [place] tablet Q4H, PRN, 30 2010 Medical tab, as needed Center for pain, Substitution Allowed, Maintenance, TAB [place] Thyroid 120 120 mg, 1 tab, PO Active [facility] [place] mg oral tablet PO, Daily, 30 2010 Med ical tab, Center Substitution Allowed, TAB Crestor 20 mg oral 20 mg, 1 tab, PO Active [facility] [place] tablet PO, Daily, 30 2010 Medical tab, Center Substitution Allowed, TAB metFORmin 500 mg 500 mg, 1 tab, PO Active [facility] oral tablet PO, Q8H, 90 2010 Medical tab, Center Substitution Allowed, TAB normal saline 0.9% 1,000 mL, IV No Longer Christianson [facility] IV 1,000 mL Rate: 100 Active 2010 Medical ml/hr, Infuse [place] over: 10 hr, Route: IV, Total Volume: 1,000, Start date: 02/18/11 11:29:00, Duration: 30 day, Stop date: 03/20/11 11:28:00 potassium 25 mEq, No Longer [place] bicarbonate 25 mEq Substitution Active 2010 Medical oral tablet, Allowed Center effervescent potassium chloride 40 mEq, 30 mL, PO No Longer Alikhan 01/30 [facility] Route: PO, Active 2010 Medical Drug form: [place] LIQ, Daily, Start date: 02/12/11 11:00:00, Duration: 30 day, Stop date: 03/14/11 8:00:00 Kayexalate 15 gm, 60 mL, PO No Longer [place] Route: PO, Active 2010 Medical Drug form: [place] SUSP, ONCE, Start date: 02/11/11 21:17:00, Stop date: 02/11/11 21:17:00 Kayexalate 30 gm, 120 mL, PO No Longer [place] Route: PO, Active 2010 Medical Drug form: [place] SUSP, ONCE, Start date: 02/11/11 17:22:00, Stop date: 02/11/11 17:22:00 NS (Bolus) IV 1,000 mL, IV No Longer Milliken Osman as 1,000 mL Rate: 1,000 Active 2010 Medical ml/hr, Infuse [place] over: 1 hr, Route: IV, Total Volume: 1,000, Priority: STAT, Start date: 02/11/11 8:37:00, Duration: 1 doses or times, Stop date: 02/11/11 9:36:00, Bolus DoseBolus Dose dexamethasone 1 mg, 1 tab, PO No Longer Zeider [facility] Route: PO, Active 2010 Medical Drug form: [place] TAB, Daily, Start date: 02/11/11 8:00:00, Duration: 2 day, Stop date: 02/12/11 8:00:00 [place] Enema 133 ml, Route: [place] No Longer [place] [facility] [place], Drug Form: Active 2010 Medical JEANNIE, ONCE, Center Start date: 02/10/11 14:15:00, Stop date: 02/10/11 14:15:00 bisacodyl 10 mg, 1 supp, [place] No [place]er [place] Route: [place], Active 2010 Medical Drug form: [place] SUPP, ONCE, Start date: 02/10/11 14:15:00, Stop date: 02/10/11 14:15:00 dexamethasone 1 mg, 1 tab, PO No Longer Zeider [facility] Route: PO, Active 2010 Medical Drug form: [place] TAB, BID, Start date: 02/09/11 8:00:00, Duration: 2 day, Stop date: 02/10/11 20:00:00 Xylocaine Jelly 2% 1 appl, Route: TOP No Longer Allam 01/30 [facility] topical gel with TOP, Q6H, Drug Active 2010 Medical applicator form: GEL PRN [place] Pain, Start date: 02/08/11 16:04:00, Duration: 30 day, Stop date: 03/10/11 16:03:00 dexamethasone 1 mg, 1 tab, PO No Longer [place] [facility] Route: PO, Active 2010 Medical Drug form: Center TAB, TID, Start date: 02/07/11 8:00:00, Duration: 2 day, Stop date: 02/08/11 17:00:00 Prinivil 10 mg, 1 tab, PO No Longer [place] Route: PO, Active 2010 Medical Drug form: Center TAB, QPM, Start date: 02/06/11 17:00:00, Duration: 30 day, Stop date: 03/07/11 17:00:00 dexamethasone 2 mg, 1 tab, [facility] Route: PO, Active 2010 Medical Drug form: Center TAB, TID, Start date: 02/05/11 8:00:00, Duration: 2 day, Stop date: 02/06/11 17:00:00 lisinopril 10 mg, 1 tab, PO No Longer [place] Route: PO, Active 2010 Medical Drug form: Center TAB, QPM, Start date: 02/04/11 8:00:00, Duration: 30 day, Stop date: 03/05/11 17:00:00 insulin 8 unit, 0.08 SUB-Q No Longer Alikhan [facility] isophane-NPH mL, Route: Active 2010 Medical SUB-Q, Drug Center form: INJ, Before Breakfast, Start date: 02/04/11 6:30:00, Stop date: 03/05/11 6:30:00 insulin 8 unit, 0.08 SUB-Q No Longer Alikhan [facility] isophane-NPH mL, Route: Active 2010 Medical SUB-Q, Drug Center form: INJ, Bedtime, Start date: 02/03/11 21:00:00, Stop date: 03/04/11 21:00:00 potassium chloride 40 mEq, 2 tab, PO No Longer [place] 20 mEq oral Route: PO, Active [...] mg, 1.5 tab, PO No Longer [place] [facility] Route: PO, Active 2010 Medical Drug form: Center TAB, TID, Start date: 02/03/11 8:00:00, Duration: 2 day, Stop date: 02/04/11 17:00:00 insulin 15 unit, 0.15 SUB-Q No Longer Ash [facility] s isophane-NPH mL, Route: Active 2010 Medical SUB-Q, Drug Center form: INJ, Q24H, Start date: 02/03/11 0:00:00, Duration: 30 day, Stop date: 03/04/11 0:00:00 Keppra 500 mg, 1 tab, PO [facility] [place] [facility]: PO, Active 2010 Medical Drug form: Center TAB, Q12H, Start date: 02/02/11 21:00:00, Duration: 30 day, Stop date: 03/04/11 9:00:00 hydrALAZINE 25 mg 25 mg, 1 tab, PO No Longer [place] 02/01 [facility] oral tablet Route: PO, Active 2010 Medical Drug form: Center TAB, BID, Start date: 02/01/11 17:00:00, Stop date: 03/03/11 8:00:00 heparin 5,000 unit, 1 SUB-Q No Longer Rizvi [facility] mL, Route: Active 2010 Medical SUB-Q, Drug Center form: INJ, Q8H, Start date: 02/01/11 16:00:00, Duration: 30 day, Stop date: 03/03/11 8:00:00 Kayexalate 15 gm, 60 mL, PO No Longer [place] Route: PO, Active 2010 Medical Drug form: [place] SUSP, ONCE, Start date: 02/01/11 13:19:00, Stop date: 02/01/11 13:19:00 potassium chloride 20 mEq, 1 tab, PO No Longer Ash [place] 20 mEq oral Route: PO, Active 2010 Medical tablet, extended Drug form: Cent er release ERTAB, Daily, Start date: 02/01/11 9:00:00, Duration: 30 day, Stop date: 03/02/11 9:00:00 Crestor 20 mg, 2 tab, PO No Longer Zeider [facility] Route: PO, Active 2010 Medical Drug form: [place] TAB, Daily, Start date: 02/01/11 9:00:00, Duration: 30 day, Stop date: 03/02/11 9:00:00 Lasix 40 mg oral 80 mg, 2 tab, PO No Longer Dean [facility] tablet Route: PO, Active 2010 Medical Drug form: [place] TAB, Daily, Start date: 02/01/11 9:00:00, Duration: 30 day, Stop date: 03/02/11 9:00:00 atenolol 50 mg 50 mg, 1 tab, PO No Longer [place] [facility] oral tablet Route: PO, Active 2010 Medical Drug form: [place] TAB, Daily, Start date: 02/01/11 9:00:00, Duration: 30 day, Stop date: 03/02/11 9:00:00 [place] Thyroid 120 mg, 2 tab, PO No Longer Zeider [facility] Route: PO, Active 2010 Medical Drug form: Center TAB, Daily, Start date: 02/01/11 9:00:00, Duration: 30 day, Stop date: 03/02/11 9:00:00 dexamethasone 4 mg, 1 tab, PO No Longer Zeider [facility] Route: PO, Active 2010 Medical Drug form: [place] TAB, Q8H, Start date: 02/01/11 0:00:00, Duration: 2 day, Stop date: 02/02/11 16:00:00 Humulin N 20 unit, 0.2 SUB-Q No Longer [place] Osman as mL, Route: Active 2010 Medical SUB-Q, Drug Center form: INJ, BID, Start date: 02/01/11 0:00:00, Stop date: 03/02/11 16:00:00 Keppra 100 mg/mL 500 mg, 5 mL, [place] No Longer Zeider [place] oral solution Route: [place], Active 2010 Medical Drug form: Center SOLN, Q12H, Start date: 01/31/11 21:00:00, Duration: 30 day, Stop date: 03/02/11 9:00:00 Insulin regular 1 unit, 0.01 SUB-Q No Longer Nur [facility] mL, Route: Active 2010 Medical SUB-Q, Drug Center form: SOLN, TID-Before Meals, PRN Blood Glucose Results, Start date: 01/31/11 17:22:00, Duration: 30 day, Stop date: 03/02/11 17:21:00 Milk of Magnesia 30 mL, Route: PO No Longer Nur [facility] PO, Drug Form: Active 2010 Medical SUSP, Daily, Center PRN Constipation, Start date: 01/31/11 17:22:00, Duration: 30 day, Stop date: 03/02/11 17:21:00 bisacodyl 10 mg, 1 supp, [place] Route: [place], Active 2010 Medical Drug form: Center SUPP, [...] 3 mL, Route: IVP No Longer Nur [facility] IVP, Drug Active 2010 Medical Form: INJ, Center Q8H, PRN Line Flush, Start date: 01/31/11 17:22:00, Duration: 30 day, Stop date: 03/02/11 17:21:00, Administer at least once every 8 hoursAdministe r at least once every 8 hours [place] Route: SUB-Q, SUB-Q No Longer [facility] Drug form: Active 2010 Medical INJ, BID, Center Start date: 01/31/11 17:00:00, Duration: 30 day, Stop date: 03/02/11 9:00:00 metFORmin 500 mg 500 mg, 1 tab, PO No Longer ider [facility] oral tablet Route: PO, Active 2010 Medical Drug form: Center TAB, Q8H, Start date: 01/31/11 16:00:00, Duration: 30 day, Stop date: 03/02/11 8:00:00 Vest 5/325 oral 1 tab, Route: PO No Longer [facility] tablet PO, Drug Form: Active 2010 Medical TAB, Q4H, PRN Center as needed for pain, Start date: 01/31/11 14:56:00, Duration: 30 day, Stop date: 03/02/11 14:55:00 bisacodyl 10 mg, Route: [place] No Longer moline Osman as [place], Drug form: Active 2010 Medical SUPP, Daily, Center PRN as needed for constipation, Start date: 01/31/11 14:56:00, Duration: 30 day, Stop date: 03/02/11 14:55:00 Keppra 100 mg/mL 500 mg, 5 mL, [place] On Hold [facility] oral solution [place], Q12H, 60 2010 Medic al mL, Center Substitution Allowed, SOLN docusate sodium 100 mg, 1 cap, PO On Hold moline H [place] 100 mg oral PO, BID, 60 2010 Medical capsule cap, Center Substitution Allowed, CAP dexamethasone 4 mg 4 mg, 1 tab, PO On Hold [facility] oral tablet PO, Q6H-02, 60 2010 Medic al tab, Center Substitution Allowed, TAB bisacodyl 10 mg 10 mg, 1 supp, [place] On Hold [facility] M [facility] rectal suppository [place], Daily, 2010 Me dical PRN, 60 supp, Center Constipation, Substitution Allowed, SUPP Vest 5/325 oral 1 tab, PO, PO On Hold m[place] tablet Q4H, PRN, 60 2010 Medical tab, Headache, Center Substitution Allowed, Maintenance, TAB Vest 5/325 oral 1 tab, Route: PO No Longer Bonner [place] tablet PO, Drug Form: Active 2010 Medical TAB, Q4H, PRN [place] Headache, Start date: 01/30/11 15:44:00, Duration: 30 day, Stop date: 03/01/11 15:43:00 dexamethasone 4 mg, 1 tab, PO No Longer Christianson [facility] Route: PO, Active 2010 Medical Drug form: [place] TAB, Q6H-02, Start date: 01/29/11 12:00:00, Stop date: 02/28/11 6:00:00 insulin 20 unit, 0.2 SUB-Q No Longer Omidvar [place] isophane-NPH mL, Route: Active 2010 Medical SUB-Q, Drug Center form: INJ, Q8H, Start date: 01/29/11 8:00:00, Stop date: 02/28/11 0:00:00 Keppra 100 mg/mL 500 mg, 5 mL, [place] No Longer Boss [facility] oral solution Route: JATIN, Active 2010 Medical Drug form: [place] SOLN, Q12H, Start date: 01/28/11 21:00:00, Duration: 30 day, Stop date: 02/27/11 9:00:00 ranitidine 15 150 mg, 10 mL, [place] No Longer Boss [facility] mg/mL oral syrup Route: JATIN, Active 2010 [facility] Drug form: [place] SYRP, Q12H, Start date: 01/28/11 21:00:00, Duration: 30 day, Stop date: 02/27/11 9:00:00 Dextrose 50% 6.25 gm, 12.5 IVP No Longer Shagagi [facility] Syringe mL, Route: Active 2010 Medical IVP, Drug Center Form: INJ, PRN, PRN Abnormal Lab Result, Start date: 01/28/11 17:39:00, Duration: 30 day, Stop date: 02/27/11 17:38:00 insulin regular 3 unit, 0.03 SUB-Q No Longer George 08/30/ [facility] human recombinant mL, Route: Active 2010 Med ical 100 units/mL SUB-Q, Drug Center injectable form: SOLN, solution PRN, PRN Abnormal Lab Result, Start date: 01/28/11 17:39:00, Duration: 30 day, Stop date: 02/27/11 17:38:00 metFORmin 1000 mg 1,000 mg, 1 PO No Longer Ash [facility] oral tablet tab, Route: Active 2010 Medical PO, Drug form: Center TAB, BID, Start date: 01/28/11 17:00:00, Duration: 30 day, Stop date: 02/27/11 9:00:00 heparin 5,000 unit, 1 SUB-Q No Longer [place] [facility] mL, Route: Active 2010 Medical SUB-Q, Drug Center form: INJ, Q8H, Start date: 01/28/11 0:00:00, Duration: 30 day, Stop date: 02/26/11 16:00:00 sodium phosphate 18 mmol, 6 mL, IV Active Day [place] Route: IV, 2010 Medical ONCE, Start Center date: 01/27/11 3:30:00, Stop date: 01/27/11 3:30:00 normal saline 0.9% 1,000 mL, IV No Longer George [facility] IV 1,000 mL Rate: 50 Active 2010 [...] mg, 1 tab, PO No Longer Rizvi Dougie Route: PO, Active 2010 Medical Drug form: Center TAB, Q4H, Start date: 01/26/11 16:00:00, Duration: [...] IVP, Q6H, Active 2010 Medical Start date: [place] 01/26/11 12:00:00, Duration: 30 day, Stop date: 02/25/11 6:00:00 mannitol 75 gm, 375 mL, IVPB No Longer Christian Osman as Route: IVPB, Active 2010 Medical Drug form: [place] INJ, Q6H, Start date: 01/26/11 12:00:00, Duration: [...] mannitol 50 gm, Route: IVPB No Longer Shon Osmana s IVPB, ONCE, Active 2010 Medical Start date: [place] 01/25/11 17:50:00, Stop date: 01/25/11 17:50:00 heparin [...] phosphate 15 mmol, IVPB No Longer [place] 01/25[facility] [place] Route: IVPB, Active 2010 Medical PRN, PRN Center Abnormal Lab Result, Start date: 01/25/11 6:44:00, Duration: 30 day, Stop date: 02/24/11 6:43:00 magnesium sulfate 4 gm, 100 mL, IVPB No Longer Christian [facility] Route: IVPB, Active 2010 Medical Drug form: [place] INJ, ONCE, Start date: 01/25/11 6:44:00, Duration: 1 doses or times, Stop date: 01/25/11 6:44:00, For Mg = 1.5 - 1.7 mg/dLFor Mg = 1.5 - 1.7 mg/dL hydrALAZINE 10 mg, 0.5 mL, IV No Longer Christian [facility] Route: IV, Active 2010 Medical Drug form: [place] INJ, Q30Min, PRN Hypertension, Start date: 01/25/11 0:14:00, Duration: 30 day, Stop date: 02/24/11 0:13:00 dexamethasone 10 mg, 1 mL, IV No Longer [place]iz[place] 01/25[facility] Route: IV, Active 2010 Medical Drug form: [place] INJ, Q6H, Start date: 01/25/11 0:00:00, Stop date: 02/23/11 18:00:00 Insulin regular 99 mL, Rate: IV No Longer Avinash 01/25/ [facility] 100 unit + Sodium TITRATE, Active 2010 Medic al Chloride 0.9% IV Route: IV, Cent er 99 mL Total Volume: 100, Start date: 01/24/11 23:59:00, Duration: 30 day, Stop date: 02/23/11 23:58:00 Dextrose 50% 12.5 gm, 25 IVP No Longer [place] 01[place]25[facility] [place] Syringe mL, Route: Active 2010 Medical IVP, Drug Center Form: INJ, PRN, PRN Abnormal Lab Result, Start date: 01/24/11 23:41:00, Duration: 30 day, Stop date: 02/23/11 23:40:00 Insulin regular 100 mL, Rate: IVPB No Longer Christian [facility] 100 unit + Sodium Start at 0.05 Active 2010 Medical Chloride 0.9% units/kg/hour- Mitch ter (titrate) 100 mL , Route: IVPB, Total Volume: 100, Duration: 30 day, Stop date: 02/23/11 23:41:00, Replace Every: 24 hr labetalol 10 mg, 2 mL, IV No Longer Christian 01/25[facility] [place] Route: IV, Active 2010 Medical Drug form: [place] INJ, Q15Min, PRN Hypertension, Start date: 01/24/11 22:36:00, Duration: 30 day, Stop date: 02/23/11 22:35:00 levetiracetam 500 mg, Route: IV No Longer Boss [facility] IV, Q12H, Active 2010 Medical Start date: [place] 01/24/11 21:00:00, Duration: 30 day, Stop date: 02/23/11 9:00:00 famotidine 20 mg, 2 mL, IV [facility] [place] [facility] Route: IV, 2010 Medical Drug form: [place] INJ, Q12H, Start date: 01/24/11 21:00:00, Stop date: 02/23/11 9:00:00 propofol 10 mg/ml 1,000 mg, 100 IV No Longer [place] 01/25[facility] (titrate) 1,000 mg mL, Rate: Active 2010 Med ical Titrate as Center directed, Route: IV, Total Volume: 100 ml, Start date: 01/24/11 20:56:00, Duration: 30 day, Stop date: 02/23/11 20:55:00, Replace Every: 12 hr chlorhexidine 15 ml, Route: S&SPIT No Longer Ryan [facility] topical 0.12% S&SPIT, Q4H, Active 2010 Medic al liquid Drug form: [place] LIQ, Start date: 01/24/11 20:00:00, Duration: 30 day, Stop date: 02/23/11 16:00:00 niCARdipine 40 mg 40 mg, 200 mL, IV No Longer [place] 01/25 [facility] in [place] 200 ml IV 40 Rate: Titrate, Active 2010 Medical mg Route: IV, Center Total Volume: 200 mL, Duration: 30 day, Stop date: 02/23/11 19:06:00, Replace Every: 24 hr vancomycin 1 gm, Route: IVPB No Longer Boss [place] IVPB, Drug Active 2010 Medical form: INJ, Center [id number], Start date: 01/24/11 9:00:00, Duration: 30 day, Stop date: 02/22/11 21:00:00 famotidine 20 mg 20 mg, 1 tab, PO No Longer Christian [facility] oral tablet Route: PO, Active 2010 [...] On Hold H [place] tablet PO, Daily, 2010 Medical tab, Center Substitution Allowed, TAB heparin 5000 5,000 unit, 1 SUB-Q No Longer [place] [facility] units/mL mL, Route: Active 2010 [facility] injectable SUB-Q, Drug Center solution form: INJ, Q8H, Start date: 01/23/11 16:00:00, Duration: 30 day, Stop date: 02/22/11 8:00:00 [place] 250 mcg, SUB-Q On Hold [facility] SUB-Q, BID, 2010 Medical Substitution Center Allowed, INJ cephalexin 500 mg, PO, PO On Hold [place] monohydrate 500 mg TID, 2010 Medic al oral tablet Substitution Center Allowed, CAP Levaquin 500 mg 1 tab, PO, [place] oral tablet Q24H, 10 tab, 2010 Medica l Substitution Center Allowed, TAB metFORmin 500 mg 500 mg, PO, PO On Hold [facility] oral tablet TID, 2010 Medical Substitution Center Allowed, TAB Crestor 20 mg oral 1 tab, PO, PO On Hold [place] tablet Daily, 30 tab, 2010 Medical Substitution Center Allowed, TAB benzonatate 200 mg 1 cap, PO, PO On Hold [facility] oral capsule TID, 30 cap, 2010 Medica l Substitution Center Allowed, CAP atenolol 50 mg 1 tab, PO, PO On Hold [place] oral tablet Daily, 30 tab2010 Medic al Substitution Center Allowed [place] Thyroid 120 1 tab, PO, PO On Hold [place] mg oral tablet Daily, 30 tab, 2010 Me dical Substitution Center Allowed, TAB docusate 100 mg, 1 cap, PO No Longer [place] Route: PO, Active 2010 Medical Drug form: [place] CAP, BID, Start date: 01/23/11 9:00:00, Stop date: 02/21/11 17:00:00 Senna 8.6 mg oral 8.6 mg, 1 tab, PO No Longer Nur 01/23 [facility] tablet Route: PO, Active 2010 Medical Drug Form: [place] TAB, Q12H, Start date: 01/23/11 9:00:00, Duration: 30 day, Stop date: 02/21/11 21:00:00 levetiracetam 500 mg, 1 tab, PO No Longer Christian 01/23[facility] Route: PO, Active 2010 Medical Drug form: [place] TAB, Q12H, Start date: 01/23/11 9:00:00, Duration: 30 day, Stop date: 02/21/11 21:00:00 calcium chloride 1,000 mg, 10 IVPB No Longer Day [facility] mL, Route: Active 2010 Medical IVPB, ONCE, [place] Start date: 01/23/11 8:30:00, Stop date: 01/23/11 8:30:00 magnesium sulfate 2 gm, 50 mL, IVPB No Longer Day [facility] Route: IVPB, Active 2010 Medical Drug form: [place] INJ, Q2H, Start date: 01/23/11 8:20:00, Duration: 2 doses or times, Stop date: 01/23/11 10:00:00 dexamethasone 4 mg, 1 tab, PO No Longer Christian [facility] Route: PO, Active 2010 Medical Drug form: [place] TAB, Q6H, Start date: 01/23/11 6:00:00, Duration: 30 day, Stop date: 02/22/11 0:00:00 acetaminophen 650 mg, 2 tab, PO No Longer Nur [facility] Route: PO, Active 2010 Medical Drug form: Center TAB, Q4H, PRN Pain/Fever, Start date: 01/23/11 5:22:00, Duration: 30 day, Stop date: 02/22/11 5:21:00 morphine Sulfate 2 mg, 1 mL, IVP No Longer Rizvi [facility] Route: IVP, Active 2010 Medical Drug form: Center INJ, Q4H, PRN Pain Score 4-6, Start date: 01/23/11 5:22:00, Duration: 30 day, Stop date: 02/22/11 5:21:00, Hold for respiratory rate of 8 or less NS + KCL 20mEq/L 1,000 mL, IV No Longer Christian [facility] 1000ml (Premix) Rate: 60 Active 2010 Medical 1,000 mL 1,000 mL ml/hr, Infuse Center over: 16.7 hr, Route: IV, Total Volume: 1,000, Start date: 01/23/11 5:21:00, Duration: 30 day, Stop date: 02/22/11 5:20:00 insulin regular 5 unit, 0.05 SUB-Q No Longer [place] [facility] human recombinant mL, Route: Active 2010 Med ical 100 units/mL SUB-Q, Drug Center injectable form: SOLN, solution PRN, PRN Abnormal Lab Result, Start date: 01/23/11 5:14:00, Duration: 30 day, Stop date: 02/22/11 5:13:00 Dextrose 50% 6.25 gm, 12.5 IVP No Longer [place] 01/23[facility] Syringe mL, Route: Active 2010 [facility] IVP, Drug Center Form: INJ, PRN, PRN Abnormal Lab Result, Start date: 01/23/11 5:14:00, Duration: 30 day, Stop date: 02/22/11 5:13:00 Saline Flush 0.9% 5 ml, Route: IVP No Longer [place] 01/23[facility] IVP, Drug Active 2010 Medical Form: INJ, Center PRN, PRN Line Flush, Start date: 01/23/11 5:14:00, Duration: 30 day, Stop date: 02/22/11 5:13:00 bisacodyl 10 mg, 1 supp, [place] No Longer [place] 01[place] [place] Route: [place], Active 2010 Medical Drug form: Center SUPP, Daily, PRN Constipation, Start date: 01/23/11 5:14:00, Duration: 30 day, Stop date: 02/22/11 5:13:00 acetaminophen 650 mg, 2 tab, PO No Longer Nur 01/23/ [facility] Route: PO, Active 2010 Medical Drug form: Center TAB, Q4H, PRN Pain/Fever, Start date: 01/23/11 5:14:00, Duration: 30 day, Stop date: 02/22/11 5:13:00 morphine Sulfate 2 mg, 1 mL, IVP No Longer Nur 01/23[facility] Route: IVP, Active 2010 Medical Drug form: Center INJ, Q1H, PRN Pain Score 7-10, Start date: 01/23/11 5:14:00, Duration: 30 day, Stop date: 02/22/11 5:13:00 ondansetron 4 mg, 2 mL, IVP No Longer Nur 01/23[facility] [place] Route: IVP, Active 2010 Medical Drug form: Center INJ, Q8H, PRN Nausea & Vomiting, Start date: 01/23/11 5:14:00, Duration: 30 day, Stop date: 02/22/11 5:13:00 Allergies, Adverse Reactions, Alerts Substance Category Reaction Severity Reaction Status Date Comments S ource type Reported penicillins< Assertion rash Drug Active Data [facility] sup>1</sup> allergy 1 migrated Med ical from [facility] on 01/22/15. Originally documented as PCN. erythromycin Assertion Drug Active Data [facility] <sup>2</sup> allergy 1 migrated Me dical from [facility] on 01/22/15. Originally documented as ERYTHROMYC IN. aspirin<sup> Assertion severe Drug Active Data [facility] 3</sup> chest allergy 1 migrated Medical pain from [facility] on 01/22/15. Originally documented as ASPIRIN. Adhesive Assertion Allergy to Active Data [facility] Tape<sup>4</ substance 1 migrated Medical sup> from [facility] on 08/01/15. Originally documented as ADHESIVE TAPE. PHENobarbita Assertion Drug Active Data [place] l<sup>5</sup allergy 1 migrated Me dical > from [facility] on 01/22/15. Originally documented as PHENOBARBI COSTA. aspirin<sup> Assertion severe Drug Active Data [place] 4</sup> chest allergy 1 migrated Medical pain from [facility] on 01/22/15. Originally documented as ASPIRIN. Adhesive Assertion Allergy to Active Data [facility] Tape<sup>6</ substance 1 migrated Medical sup> from [facility] on 08/01/15. Originally documented as ADHESIVE TAPE. PHENobarbita Assertion Drug Active Data [facility] l<sup>7</sup allergy 1 migrated Me dical > from [facility] on 01/22/15. Originally documented as PHENOBARBI COSTA. ciprofloxaci Assertion Drug Active [facility] heparin Assertion Severe Drug Active [place] [facility] phenobarbita Assertion rash Drug Active [facility] cefepime Assertion Drug Active [facility] Cortizone-10 Assertion Drug Active [facility] aspirin allergy to severe Allergy Active [facility] [place] substance chest Medica l pain Center erythromycin drug Allergy Active [facility] penicillins drug rash Allergy Active [facility] Silk Tape propensity takes Adverse Active [facility] to adverse skin off Reaction Med ical reactions Center to substance gabapentin<s Assertion Propensity Active fatigu e [facility] up>3</sup> to adverse Me dical reactions Center to drug immune Assertion Drug Active [place] globulin allergy called Medical intravenous< hospital Ce nter sup>5</sup> on 12/06/19 and stated that the pt was allergic to IVIG Immunizations Immunization Date Given Site Status Last Updated Comments Rosalinda rce influenza virus 02/23/2019 Not Given [facility] vaccine, [facility] DOMONIQUE Lorenz nn Results Order Name Results Value Reference Date Interpretation Comments Rosalinda rce Range CHEM PANEL Magnesium 2.2 1.8 - 2.4 02/26 [facility] /[address] [place] [address] CHEM PANEL Phosphorus 3.3 2.5 - 4.5 02/[address] CHEM PANEL Glucose Lvl 176 70 - 99 02/26 [facility] CHEM PANEL BUN 20 7 - 22 02/26 [facility] CHEM PANEL Creatinine 0.96 0.50 - 02/26 [facility] Lvl 1.40 [facility] CHEM PANEL Sodium Lvl 141 135 - 145 02/26 2019 [facility] CHEM PANEL Potassium 4.3 3.5 - 5.1 02/26 [facility] CHEM PANEL Chloride Lvl 111 95 - 109 02/26 s [facility] CHEM PANEL CO2 27 24 - 32 02/26 2019 [facility] CHEM PANEL AGAP 7.3 10.0 - 02/26 [place] 20.0 [facility] CHEM PANEL Calcium Lvl 8.7 8.5 - 10.5 02/26 [facility] as [facility] CHEM PANEL eGFR 59 02/26 Result Comment: The Medical eGFR is Center [...] be multiplied by the estimated BMI. HEMATOLOGY WBC 19.0 3.7 - 10.4 02/26 [facility] HEMATOLOGY RBC 3.82 4.20 - 02/26 [facility] 5.40 [facility] HEMATOLOGY Hgb 9.2 12.0 - 02/26 [facility] 16.0 [facility] HEMATOLOGY Hct 29.8 36.0 - 02/26 [facility] 48.0 [facility] HEMATOLOGY MCV 78.2 80.0 - 02/26 [facility] 98.0 [facility] HEMATOLOGY MCH 24.1 27.0 - 02/26 [facility] 31.0 /2019 [facility] HEMATOLOGY MCHC 30.9 32.0 - 02/26 [facility] 36.0 /2019 [facility] HEMATOLOGY RDW 20.2 11.5 - 02/26 [facility] 14.5 /2019 [facility] HEMATOLOGY Platelet 110 133 - 450 02/[address] HEMATOLOGY MPV 9.5 7.4 - 10.4 02/[address] HEMATOLOGY Segs 78.2 45.0 - 02/26 [facility] 75.0 /2019 [facility] HEMATOLOGY Lymphocytes 15.4 20.0 - 02/26 [facility] 40.0 /2019 [facility] HEMATOLOGY Monocytes 5.7 2.0 - 12.0 02/[address] HEMATOLOGY Eosinophils 0.3 0.0 - 4.0 02/26 [facility] s /[address] [place] [address] HEMATOLOGY Basophils 0.4 0.0 - 1.0 02/[address] HEMATOLOGY Neutrophils 14.9 1.5 - 8.1 02/26 [place] # /2019 [facility] HEMATOLOGY Lymphocytes 2.9 1.0 - 5.5 02/26 [place] # /[address] [place] [address] HEMATOLOGY Monocytes # 1.1 0.0 - 0.8 02/26 [facility] /[address] [place] [address] HEMATOLOGY Eosinophils 0.1 0.0 - 0.5 02/26 [facility] # /[address] [place] [address] HEMATOLOGY Basophils # 0.1 0.0 - 0.2 02/26 [facility] /[address] [place] [address] HEMATOLOGY Microcyte 1+ None Seen 02/26 [facility] *ABN* /2019 Medical (02/27/20 12:52 AM) Cente r PARATHYROID Ca Ion WB 1.22 1.05 - 02/26 [facility] PROFILE 1. [facility] PARATHYROID Ca Norm WB 1.20 1.05 - 02/26 [facility] PROFILE . [facility] CHEM PANEL Magnesium 2.1 1.8 - 2.4 02/25 [facility] /[address] [place] [address] CHEM PANEL Glucose Lvl 253 70 - 99 02/[address] CHEM PANEL BUN 14 7 - 22 02/[address] CHEM PANEL Creatinine 0.74 0.50 - 02/25 [facility] Lvl 1.40 [facility] CHEM PANEL Sodium Lvl 141 135 - 145 02/25 [facility] CHEM PANEL Potassium 4.3 3.5 - 5.1 02/25 [facility] Lvl [facility] CHEM PANEL Chloride Lvl 112 95 - 109 02/25 [facility] CHEM PANEL CO2 23 24 - 32 02/25 [facility]2019 [facility] CHEM PANEL Calcium Lvl 8.7 8.5 - 10.5 02/25 [facility] as [facility] CHEM PANEL AGAP 10.3 10.0 - 02/25 [facility] 20.0 [facility] CHEM PANEL eGFR 80 02/25 Result Comment: The Medical eGFR is Center [...] multiplied by the estimated BMI. CHEM PANEL Phosphorus 2.7 2.5 - 4.5 02/25 2019 [facility] HEMATOLOGY Segs 84.4 45.0 - 02/25 [facility] 75.0 [facility] HEMATOLOGY Lymphocytes 10.8 20.0 - 02/25 [place] 40.0 [facility] HEMATOLOGY Monocytes 4.4 2.0 - 12.0 02/25 [facility]2019 [facility] HEMATOLOGY Eosinophils 0.1 0.0 - 4.0 02/25 [facility] /2019 [facility] HEMATOLOGY Basophils 0.3 0.0 - 1.0 02/25 [facility]2019 [facility] HEMATOLOGY Neutrophils 14.3 1.5 - 8.1 02/[place] # /2019 [facility] HEMATOLOGY Lymphocytes 1.8 1.0 - 5.5 02/25 [facility] /2019 [facility] HEMATOLOGY Monocytes # 0.7 0.0 - 0.8 02/25 [facility] [address] [place] [address] HEMATOLOGY Microcyte 1+ None Seen 02/25 [facility] *ABN* /2019 [facility] (02/26/20 1:07 AM) [place] HEMATOLOGY WBC 16.9 3.7 - 10.4 02/[address] HEMATOLOGY RBC 3.72 4.20 - 02/25 [facility] 5.40 [facility] HEMATOLOGY Hgb 9.0 12.0 - 02/25 [facility] 16.0 /2019 [facility] HEMATOLOGY Hct 29.3 36.0 - 02/25 [facility] 48.0 /2019 [facility] HEMATOLOGY MCV 78.8 80.0 - 02/25 [facility] 98.0 /2019 [facility] HEMATOLOGY MCH 24.1 27.0 - 02/25 [facility] 31.0 /2019 [facility] HEMATOLOGY MCHC 30.6 32.0 - 02/25 [facility] 36.0 /2019 [facility] HEMATOLOGY RDW 19.6 11.5 - 02/25 [facility] 14.5 /2019 [facility] HEMATOLOGY Platelet 98 133 - 450 02/[address] HEMATOLOGY MPV 10.1 7.4 - 10.4 02/[address] PARATHYROID Ca Ion WB 1.18 1.05 - 02/25 [facility] PROFILE 1.25 /2019 [facility] PARATHYROID Ca Norm WB 1.17 1.05 - 02/25 [facility] PROFILE 1.25 /2019 [facility] CHEM PANEL Glucose Lvl 257 70 - 99 02/[address] CHEM PANEL BUN 16 7 - 22 02/[address] CHEM PANEL Creatinine 0.75 0.50 - 02/24 [facility] Lvl 1.40 [facility] CHEM PANEL Sodium Lvl 143 135 - 145 02/[address] CHEM PANEL Potassium 4.1 3.5 - 5.1 02/24 [facility] /[address] [place] [address] CHEM PANEL Chloride Lvl 111 95 - 109 02/[address] CHEM PANEL CO2 24 24 - 32 02/[address] CHEM PANEL Calcium Lvl 9.0 8.5 - 10.5 02/[address] CHEM PANEL AGAP 12.1 10.0 - 02/24 [facility] 20.0 /2019 [facility] CHEM PANEL eGFR 80 02/24 Result [place] [id number] Comment: The Medical eGFR is Center calculated [...] by the estimated BMI. CHEM PANEL Magnesium 1.9 1.8 - 2.4 02/[address] CHEM PANEL Phosphorus 2.6 2.5 - 4.5 02/[address] HEMATOLOGY Fibrinogen 159 230 - 510 02/[address] HEMATOLOGY Segs 84.7 45.0 - 02/24 [facility] 75.0 2019 [facility] HEMATOLOGY Lymphocytes 10.5 20.0 - 02/24 [facility] 40.0 2019 [facility] HEMATOLOGY Monocytes 4.5 2.0 - 12.0 02/[address] HEMATOLOGY Eosinophils 0.1 0.0 - 4.0 02/[address] HEMATOLOGY Basophils 0.2 0.0 - 1.0 02/[address] HEMATOLOGY Neutrophils 15.2 1.5 - 8.1 02/24 [facility] # /2019 [facility] HEMATOLOGY Lymphocytes 1.9 1.0 - 5.5 02/24 [facility] # /[address] [place] [address] HEMATOLOGY Monocytes # 0.8 0.0 - 0.8 02/[address] HEMATOLOGY Microcyte 1+ None Seen 02/24 [facility] *ABN* /2019 [facility] (02/25/20 3:30 AM) [place] HEMATOLOGY WBC 17.9 3.7 - 10.4 02/[address] HEMATOLOGY RBC 3.96 4.20 - 02/24 [facility] 5.40 /2019 [facility] HEMATOLOGY Hgb 9.6 12.0 - 02/24 [place] 16.0 [facility] HEMATOLOGY Hct 31.0 36.0 - 02/24 [facility] 48.0 [facility] HEMATOLOGY MCV 78.3 80.0 - 02/24 [facility] 98.0 [facility] HEMATOLOGY MCH 24.3 27.0 - 02/24 [place] 31.0 [facility] HEMATOLOGY MCHC 31.0 32.0 - 02/24 [place] 36.0 [facility] HEMATOLOGY RDW 19.5 11.5 - 02/24 [facility] 14.5 [facility] HEMATOLOGY Platelet 94 133 - 450 02/[address] HEMATOLOGY MPV 9.6 7.4 - 10.4 02/[address] PARATHYROID Ca Ion WB 1.17 1.05 - 02/24 [facility] PROFILE 1. [facility] PARATHYROID Ca Norm WB 1.17 1.05 - 02/24 [facility] PROFILE 1.25 [facility] HEMATOLOGY Heparin Negative 5 Negative 02/23 Result [facility] Ab(SRIDEVI) (02/24/20 4:43 PM) Comment: [facility] Medical assay detects Center heparin antibodies of IgG isotype. Antibodies of other isotypes have been reported to cause heparin-induc ed thrombocytope davey. Therefore, if there is a strong clinical suspicion of HIT, additional study with a serotonin release assay is recommented. HEMATOLOGY Pat Od Value 0.064 02/23 [facility] /[address] [place] [address] HEMATOLOGY Pos CO Value 0.400 02/[address] HEMATOLOGY Basophils # 0.1 0.0 - 0.2 02/23 [facility] s /2019 [facility] HEMATOLOGY Fibrinogen 175 230 - 510 02/22 [facility] Lvl /2019 [facility] CARDIAC BNP 73 <=100 02/21 [facility] ENZYMES pg/mL [facility] HEMATOLOGY Anisocyte 1+ None Seen 02/21 [facility] *ABN* /2019 [facility] (02/22/20 10:43 AM) Cente r HEMATOLOGY Hypochrom 1+ None Seen 02/21 [facility] (02/22/20 10:43 AM) /2019 [facility] HEMATOLOGY Eosinophils 0.2 0.0 - 0.5 02/21 [place] # /2019 [facility] HEMATOLOGY Basophils # 0.2 0.0 - 0.2 02/21 [facility] s /2019 [facility] CHEM PANEL Lactic Acid 1.7 0.5 - 2.2 02/21 [facility] /2019 [facility] HEMATOLOGY Eosinophils 0.1 0.0 - 0.5 02/21 [facility] # [facility] CHEM PANEL Lactic Acid 3.8 0.5 - 2.2 02/21 [facility] /2019 [facility] CEFTRIAXONE Culture: 10,000 - 50,000 CFU/mL Enterobacter cloacae 02/21 [place] :SUSC:PT:IS Urine . /2019 Medical OLATE:ORDQN 10,000 - 50,000 CFU/mL [facility] :[facility] CEFTRIAXONE Enterobacter Enterobact 02/21 [place] :SUSC:PT:IS cloacae er cloacae Medical OLATE:ORDQN Center :[facility] URINE AND UA Color Light Yellow Yellow 02/21 [facility] STOOL *NA* [facility] (02/21/20 9:52 PM) [place] URINE AND UA Turbidity Slight Clear 02/21 [facility] STOOL *ABN* /2019 [facility] (02/21/20 9:52 PM) [place] URINE AND UA Spec Grav 1.015 <=1.030 02/21 [facility] STOOL /[address] [place] [address] URINE AND UA pH 5.0 5.0 - 8.0 02/21 [facility] STOOL /[address] [place] [address] URINE AND UA Protein Negative Negative 02/21 [facility] mg/dL mg/dL /[address] [place] [address] URINE AND UA Glucose 500 mg/dL Negative 02/21 [facility] STOOL mg/dL /[address] [place] [address] URINE AND UA Ketones Negative Negative 02/21 [facility] mg/dL mg/dL /[address] [place] [address] URINE AND UA Bili Negative Negative 02/21 [facility] STOOL *NA* [facility] (02/21/20 9:52 PM) [place] URINE AND UA Blood Negative Negative 02/21 [facility] (02/21/20 9:52 PM) /[facility] [place] URINE AND UA <1.0 0.1 - 1.0 02/21 [facility] Urobilinogen /[address] [place] [address] URINE AND UA Nitrite Positive Negative 02/21 [facility] STOOL *ABN* /[address] [place] [address] (02/21/20 9:52 PM) [place] URINE AND UA Leuk Est Trace Negative 02/21 [facility] STOOL *ABN* [facility] (02/21/20 9:52 PM) Center URINE AND UA Sq Epi Occasional Few /LPF 02/21 [facility] STOOL /F /[address] [place] [address] URINE AND UA WBC 16 0 - 5 02/[address] URINE AND UA RBC 2 0 - 2 02/[address] URINE AND UA Bacteria Occasional None Seen 02/21 [place] STOOL /HPF /HPF /[address] [place] [address] URINE AND UA Mucus Few /LPF None Seen 02/21 [facility] STOOL /F /[address] [place] [address] URINE AND UA Hyal Cast 3 0 - 2 02/[address] CHEM PANEL Lactic Acid 2.9 0.5 - 2.2 02/[address] CHEM PANEL Procalcitoni <0.05 0.00 - 02/21 [facility] n Lvl ng/mL 0.10 [facility] HEMATOLOGY Fibrinogen 158 230 - 510 02/[address] HEMATOLOGY PT 14.2 12.0 - 02/20 [facility] 14.7 /[address] [place] [address] HEMATOLOGY INR 1.10 0.85 - 02/20 [facility] 1.17 /2019 [facility] HEMATOLOGY PTT 43.0 22.9 - 02/20 [facility] 35.[address] HEMATOLOGY Fibrinogen 158 230 - 510 02/[address] BLOOD BANK ABO/Rh O POS 02/18 [facility] RESULTS /[address] [place] [address] BLOOD BANK Antibody Negative 02/18 [facility] RESULTS Scrn (02/19/20 9:31 AM) /2019 [facility] CHEM PANEL Glucose Lvl 102 70 - 99 02/[address] CHEM PANEL BUN 15 7 - 22 02/[address] CHEM PANEL Creatinine 0.67 0.50 - 02/18 [facility] Lvl 1.[address] [place] [address] CHEM PANEL Sodium Lvl 144 135 - 145 02/[address] CHEM PANEL Potassium 3.6 3.5 - 5.1 02/[address] CHEM PANEL Chloride Lvl 110 95 - 109 02/[address] CHEM PANEL CO2 29 24 - 32 02/[address] CHEM PANEL Calcium Lvl 8.4 8.5 - 10.5 02/18 [facility] /[address] [place] [address] CHEM PANEL AGAP 8.6 10.0 - 02/18 [place] 20.0 [facility] CHEM PANEL eGFR 87 02/18 [facility] Comment: The Medical eGFR is [...] by the estimated BMI. CHEM PANEL Magnesium 1.8 1.8 - 2.4 02/18 [facility] /2019 [facility] CHEM PANEL Phosphorus 2.5 2.5 - 4.5 02/[address] HEMATOLOGY PT 14.2 12.0 - 02/18 [place] 14.7 /2020 [facility] HEMATOLOGY INR 1.10 0.85 - 02/18 [facility] 1.17 [facility] HEMATOLOGY PTT 37.8 22.9 - 02/18 [place] 35.8 /2020 [facility] HEMATOLOGY Fibrinogen 167 230 - 510 02/18 [facility] /2019 [facility] HEMATOLOGY D-Dimer 0.96 02/18 [facility]2019 [facility] HEMATOLOGY Thrombin 25.6 15.0 - 02/18 [place] Time 21.2 /2020 [facility] HEMATOLOGY Fibrinogen 180 230 - 510 02/18 [facility] /2019 [facility] HEMATOLOGY PT 14.4 12.0 - 02/18 [place] 14.7 /2020 [facility] HEMATOLOGY INR 1.11 0.85 - 02/18 [place] 1.17 [facility] HEMATOLOGY PTT 37.1 22.9 - 02/18 [place] 35.8 /2020 [facility] HEMATOLOGY WBC 18.9 3.7 - 10.4 02/18 [facility]2020 [facility] HEMATOLOGY RBC 4.69 4.20 - 02/18 [facility] [place] 5.40 /2019 [facility] HEMATOLOGY Hgb 11.2 12.0 - 02/18 [facility] 16.0 /2019 [facility] HEMATOLOGY Hct 37.1 36.0 - 02/18 [facility] 48.0 /2019 [facility] HEMATOLOGY MCV 79.1 80.0 - 02/18 [facility] 98.0 /2019 [facility] HEMATOLOGY MCH 23.8 27.0 - 02/18 [facility] 31.0 /2019 [facility] HEMATOLOGY MCHC 30.1 32.0 - 02/18 [facility] 36.0 /2019 [facility] HEMATOLOGY RDW 18.7 11.5 - 02/18 [facility] 14.5 /2019 [facility] HEMATOLOGY Platelet 134 133 - 450 02/[address] HEMATOLOGY MPV 9.7 7.4 - 10.4 02/[address] HEMATOLOGY Segs 61.0 45.0 - 02/18 [facility] 75.0 /2019 [facility] HEMATOLOGY Lymphocytes 30.5 20.0 - 02/18 [facility] 40.0 /2019 [facility] HEMATOLOGY Monocytes 7.1 2.0 - 12.0 02/[address] HEMATOLOGY Eosinophils 0.7 0.0 - 4.0 02/[address] HEMATOLOGY Basophils 0.7 0.0 - 1.0 02/[address] HEMATOLOGY Neutrophils 11.5 1.5 - 8.1 02/18 [facility] /2019 [facility] HEMATOLOGY Lymphocytes 5.8 1.0 - 5.5 02/18 [facility] /[address] [place] [address] HEMATOLOGY Monocytes # 1.3 0.0 - 0.8 02/[address] HEMATOLOGY Eosinophils 0.1 0.0 - 0.5 02/18 [facility] /[address] [place] [address] HEMATOLOGY Basophils # 0.1 0.0 - 0.2 02/[address] PARATHYROID Ca Ion WB 1.11 1.05 - 02/18 [facility] PROFILE 1. /2019 [facility] PARATHYROID Ca Norm WB 1.12 1.05 - 02/18 [facility] PROFILE . [facility] CHEM PANEL Phosphorus 3.5 2.5 - 4.5 02/[address] CHEM PANEL Magnesium 1.6 1.8 - 2.4 02/17 [facility] Lvl [facility] CHEM PANEL Glucose Lvl 210 70 - 99 02/17 [facility] CHEM PANEL BUN 12 7 - 22 02/17 [facility]2019 [facility] CHEM PANEL Creatinine 0.67 0.50 - 02/17 [facility] Lvl 1.40 [facility] CHEM PANEL Sodium Lvl 141 135 - 145 02/17 2019 [facility] CHEM PANEL Potassium 3.3 3.5 - 5.1 02/17 [facility] CHEM PANEL Chloride Lvl 106 95 - 109 02[facility]17 [facility] CHEM PANEL CO2 28 24 - 32 02/17 [facility]2019 [facility] CHEM PANEL Calcium Lvl 8.7 8.5 - 10.5 02/17 [facility] as [facility] CHEM PANEL AGAP 10.3 10.0 - 02/17 [facility] 20.0 [facility] CHEM PANEL eGFR 87 02/17 [facility] Comment: The Medical eGFR is Center [...] be multiplied by the estimated BMI. HEMATOLOGY PT 17.5 12.0 - 02/17 [facility] 14.7 [facility] HEMATOLOGY INR 1.42 0.85 - 02/17 [facility] 1.17 [facility] HEMATOLOGY PTT 82.9 22.9 - 02/17 [place] 35.8 [facility] HEMATOLOGY D-Dimer 0.68 02/[address] HEMATOLOGY Fibrinogen 108 230 - 510 02/17 [facility] Lvl /2019 [facility] HEMATOLOGY Thrombin >100 15.0 - 02/17 [facility] Time seconds 21.2 [facility] HEMATOLOGY WBC 16.3 3.7 - 10.4 02/[address] HEMATOLOGY RBC 4.72 4.20 - 02/17 [place] 5.40 /2019 [facility] HEMATOLOGY Hgb 11.4 12.0 - 02/17 [place] 16.0 /2019 [facility] HEMATOLOGY Hct 37.0 36.0 - 02/17 [place] 48.0 /2019 [facility] HEMATOLOGY MCV 78.4 80.0 - 02/17 [place] 98.0 /2019 [facility] HEMATOLOGY MCH 24.1 27.0 - 02/17 [place] 31.0 /2019 [facility] HEMATOLOGY MCHC 30.7 32.0 - 02/17 [facility] 36.0 /2019 [facility] HEMATOLOGY RDW 18.3 11.5 - 02/17 [facility] 14.5 /2019 [facility] HEMATOLOGY Platelet 151 133 - 450 02/[address] HEMATOLOGY MPV 9.7 7.4 - 10.4 02/[address] HEMATOLOGY Segs 66.2 45.0 - 02/17 [place] 75.0 /2019 [facility] HEMATOLOGY Lymphocytes 23.2 20.0 - 02/17 [place] 40.0 /2019 [facility] HEMATOLOGY Monocytes 9.3 2.0 - 12.0 02/[address] HEMATOLOGY Eosinophils 0.8 0.0 - 4.0 02/17 [facility] /[address] [place] [address] HEMATOLOGY Basophils 0.5 0.0 - 1.0 02/[address] HEMATOLOGY Neutrophils 10.8 1.5 - 8.1 02/17 [place] /2019 [facility] HEMATOLOGY Lymphocytes 3.8 1.0 - 5.5 02/17 [place] # /2020 [facility] HEMATOLOGY Monocytes # 1.5 0.0 - 0.8 02/17 [facility] s /[address] [place] [address] HEMATOLOGY Eosinophils 0.1 0.0 - 0.5 02/17 [place] # /[address] [place] [address] HEMATOLOGY Basophils # 0.1 0.0 - 0.2 02/17 [facility] /[address] [place] [address] HEMATOLOGY Microcyte 1+ None Seen 02/17 [place] *ABN* /2019 Medical (02/18/20 4:08 AM) Center PARATHYROID Ca Ion WB 1.13 1.05 - 02/17 [place] PROFILE 1.25 [facility] PARATHYROID Ca Norm WB 1.12 1.05 - 02/17 [place] PROFILE . [facility] IMMUNOLOGY Coronavirus Not Detected Not 02/16 [place] (COVID-19) (02/17/20 12:25 PM) Detected /2019 [facility] BLOOD BANK BB Note Result Note 4 02/16 Result [place] [facility] RESULTS (02/17/20 12:10 PM) Comment: [facility] roger 02/17/2020 [place] 14:11 [id number]
"Significant Findings of Positive Antibody Screen_ called to _Bryant Keen_ at _02/17/2020 14:11_ by _MG_. Read Back OK" BLOOD BANK ABO/Rh O POS 02/16 [facility] RESULTS /2019 [facility] BLOOD BANK Antibody Positive 02/16 [facility] RESULTS Scrn (02/17/20 12:10 PM) [facility] BLOOD BANK AB Int Anti-D 02/16 [facility] RESULTS /2019 [facility] BLOOD BANK Path AB Blood Bank 02/16 [facility] RESULTS Physician /2019 [facility] The patient is a 75 y/o female with history of dementia, meningioma s/p resection 10 years ago with VPS, type II diabetes mellitus, HTN, HLD, CAD, hypothyroi dism, JD, seropositi ve myasthenia gravis (anti-stri ated muscle antibodies ), and recent spinal surgery around 3 weeks who presented as a direct transfer from [facility] due to concerns of MG exacerbati on. Her historical blood type was documented as O-negative from 01/24/2011 through 08/19/2011, with negative antibody screen until 08/19/2011 when anti-K and anti-big-S red cell alloantibo dies were identified . 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 The patient's transfusio n history includes transfusio n of two O-negative RBCs on 01/24/2011 and two O-positive RBCs on 12/05/2019. An anti-D is detected in this patient's serum. This antibody is directed against D antigen of the "Rh" blood group system. It is typically IgG in nature and forms in response to RBC sensitizat ion via prior transfusio n or . Anti-D is considered a clinically significan t antibody; it has been associated with hemolytic transfusio n reactions. The formation of anti-D in this patient previously typed as O-positive on multiple ABO-Rh typings suggests that this patient harbors the partial D phenotype. Incubation of the patient's own red cells with patient's serum shows no reactivity (i.e. auto control is negative). Should RBC transfusio n be necessary, crossmatch -compatibl e red cells negative for the D, K, and big-S antigens will be issued. Some difficulty in finding appropriat e red cell units is anticipate d since only 6.1% of the donor population lack the D, K, and big-S antigens; thus, the Blood Bank should be notified ahead of time if transfusio n is anticipate d. The patients electronic medical record has been reviewed for relevant informatio n. I have reviewed the test results and concur with the resident, Dr. Doug Warner's, interpreta tion. CPT: 20229-QA CARDIAC Total CK 25 12 - 191 02/[address] CHEM PANEL Phosphorus 3.0 2.5 - 4.5 02/[address] CHEM PANEL Glucose Lvl 215 70 - 99 02/[address] CHEM PANEL BUN 11 7 - 22 02/[address] CHEM PANEL Creatinine 0.68 0.50 - 02/16 [facility] Lvl 1.40 [facility] CHEM PANEL Sodium Lvl 135 135 - 145 02/[address] CHEM PANEL Potassium 3.4 3.5 - 5.1 02/16 [facility] [address] CHEM PANEL Chloride Lvl 101 95 - 109 02/16 [facility] [address] CHEM PANEL CO2 31 24 - 32 02/[address] CHEM PANEL Calcium Lvl 8.4 8.5 - 10.5 02/16 [facility] as [address] CHEM PANEL AGAP 6.4 10.0 - 02/16 [facility] 20.0 2019 [facility] CHEM PANEL eGFR 87 02/16 [place] [address] Comment: The Medical eGFR is Center calculated [...] multiplied by the estimated BMI. CHEM PANEL Procalcitoni <0.05 0.00 - 02/16 [facility] n l 0.10 [facility] CHEM PANEL Lactic Acid 1.6 0.5 - 2.2 02/16 [facility] Lvl /2019 [facility] HEMATOLOGY WBC 16.0 3.7 - 10.4 02/[address] HEMATOLOGY RBC 5.23 4.20 - 02/16 [facility] 5.40 [facility] HEMATOLOGY Hgb 12.7 12.0 - 02/16 [facility] 16.0 [facility] HEMATOLOGY Hct 41.4 36.0 - 02/16 [facility] 48.0 /2019 [facility] HEMATOLOGY MCV 79.1 80.0 - 02/16 [facility] 98.0 [facility] HEMATOLOGY MCH 24.4 27.0 - 02/16 [facility] 31.0 [facility] HEMATOLOGY MCHC 30.8 32.0 - 02/16 [facility] 36.0 [facility] HEMATOLOGY RDW 18.3 11.5 - 02/16 [facility] 14.5 [facility] HEMATOLOGY Platelet 161 133 - 450 02/[address] HEMATOLOGY MPV 10.1 7.4 - 10.4 02/[address] HEMATOLOGY Segs 84.7 45.0 - 02/16 [facility] 75.0 /2019 [facility] HEMATOLOGY Lymphocytes 9.3 20.0 - 18 [facility] 40.0 /2020 [facility] HEMATOLOGY Monocytes 5.0 2.0 - 12.[address] HEMATOLOGY Eosinophils 0.5 0.0 - 4.0 02/16 [facility] s /2019 [facility] HEMATOLOGY Basophils 0.5 0.0 - 1.[address] HEMATOLOGY Neutrophils 13.6 1.5 - 8.1 02/16 [facility] # /2019 [facility] Center HEMATOLOGY Lymphocytes 1.5 1.0 - 5.5 02/16 [facility] # /2019 [facility] Center HEMATOLOGY Monocytes # 0.8 0.0 - 0.8 02/16 [facility] s /2019 [facility] HEMATOLOGY Basophils # 0.1 0.0 - 0.2 02/16 [facility] s /2019 [facility] LIPIDS Trig 156 <=149 02/16 [facility] mg/dL /[address] [place] [address] LIPIDS Chol 154 <=199 02/16 [facility] mg/dL /2019 [facility] LIPIDS HDL 54 >=61 mg/dL 02/[address] LIPIDS CHD Risk 2.85 3.90 - 02/16 [facility] 5.80 [facility] LIPIDS LDL 69 <=99 mg/dL 02/16 [facility] (Calculated) /2019 [facility] LIPIDS VLDL 31 02/[address] URINE AND UA Color Yellow Yellow 02/15 [facility] STOOL *NA* /2019 [facility] (02/15/20 10:29 PM) Cente r URINE AND UA Turbidity Marked Clear 02/15 [facility] STOOL *ABN* [facility] (02/15/20 10:29 PM) Cente r URINE AND UA Spec Grav 1.015 <=1.030 02/15 [facility] STOOL /[address] [place] [address] URINE AND UA pH 7.0 5.0 - 8.0 02/15 [facility] STOOL /[address] [place] [address] URINE AND UA Protein Negative Negative 02/15 [facility] STOOL mg/dL mg/dL [facility] URINE AND UA Ketones Negative Negative 02/15 [facility] STOOL mg/dL mg/dL [facility] URINE AND UA Bili Negative Negative 02/15 [facility] STOOL *NA* [facility] (02/15/20 10:29 PM) Cente r URINE AND UA Blood Negative Negative 02/15 [facility] STOOL (02/15/20 10:29 PM) Medic al Center URINE AND UA <1.0 0.1 - 1.0 02/15 [facility] STOOL Urobilinogen /[address] [place] [address] URINE AND UA Nitrite Negative Negative 02/15 [facility] STOOL (02/15/20 10:29 PM) /2019 [facility] URINE AND UA Leuk Est Negative Negative 02/15 [facility] STOOL (02/15/20 10:29 PM) /2019 [facility] URINE AND UA Sq Epi Few /LPF Few /LPF 02/15 [facility] STOOL [address] URINE AND UA WBC 1 0 - 5 02/[address] URINE AND UA RBC 1 0 - 2 02/[address] URINE AND UA Bacteria Occasional None Seen 02/15 [place] ST[place]OL /HPF /HPF /[address] [place] [address] URINE AND UA Mucus Few /LPF None Seen 02/15 [facility] STOOL /LPF /[address] [place] [address] URINE AND UA Amorph Moderate None Seen 02/15 [facility] STOOL [place] /HPF /HPF /[address] [place] [address] URINE AND UA Hyal Cast 3 0 - 2 02/[address] URINE AND UA Glucose 150mg/dl 02/[address] CHEM PANEL Total 5.8 6.4 - 8.4 02/15 [facility] Protein [address] CHEM PANEL Albumin Lvl 2.4 3.5 - 5.0 02/15 [facility] [address] CHEM PANEL ALT 26 0 - 65 02/[address] CHEM PANEL AST 16 0 - 37 02/[address] CHEM PANEL Alk Phos 162 39 - 136 02/[address] CHEM PANEL Bili Total 0.3 0.2 - 1.3 02/[address] CHEM PANEL B/C Ratio 25 6 - 25 02/[address] CHEM PANEL Globulin 3.4 2.7 - 4.2 02/[address] CHEM PANEL A/G Ratio 0.7 0.7 - 1.6 02/[address] IMMUNOLOGY Coronavirus Not Detected Not 12/19 [place] (COVID-19) (12/20/19 12:18 PM) Detected /2019 [facility] CARDIAC Troponin-I 0.02 0.00 - 12/17 [facility] ENZYMES 0.[address] [place] [address] CHEM PANEL Glucose Lvl 145 70 - 99 12/[address] CHEM PANEL BUN 10 7 - 22 12/[address] CHEM PANEL Creatinine 0.64 0.50 - 12/17 [place] Lvl 1.[address] [place] [address] CHEM PANEL Sodium Lvl 143 135 - 145 12/17 [facility] CHEM PANEL Potassium 3.9 3.5 - 5.1 12/17 [facility] CHEM PANEL Chloride Lvl 108 95 - 109 12/17 [facility] CHEM PANEL CO2 28 24 - 32 12/17 [facility] CHEM PANEL AGAP 10.9 10.0 - 12/17 [facility] 20.0 [facility] CHEM PANEL Calcium Lvl 8.3 8.5 - 10.5 12/17 [facility] CHEM PANEL eGFR 89 12/17 [facility] Comment: The Medical eGFR is Center [...] CHEM PANEL Magnesium 2.1 1.8 - 2.4 12/17 [facility] CHEM PANEL Phosphorus 3.2 2.5 - 4.5 12/17 [facility] HEMATOLOGY WBC 9.9 3.7 - 10.4 12/17 [facility] HEMATOLOGY RBC 3.09 4.20 - 12/17 [place] 5.40 [facility] HEMATOLOGY Hgb 9.1 12.0 - 12/17 [facility] 16.0 [facility] HEMATOLOGY Hct 28.9 36.0 - 12/17 [facility] 48.0 [facility] HEMATOLOGY MCV 93.7 80.0 - 12/17 [facility] 98.0 [facility] HEMATOLOGY MCH 29.4 27.0 - 12/17 [place] 31.0 [facility] HEMATOLOGY MCHC 31.4 32.0 - 12/17 [place] 36.0 [facility] HEMATOLOGY RDW 16.7 11.5 - 12/17 [facility] 14.5 [facility] HEMATOLOGY Platelet 200 133 - 450 12/[address] HEMATOLOGY MPV 10.2 7.4 - 10.4 12/[address] HEMATOLOGY Segs 66.2 45.0 - 12/17 [facility] 75.0 [facility] HEMATOLOGY Lymphocytes 23.0 20.0 - 12/17 [place] 40.0 /2019 [facility] HEMATOLOGY Monocytes 8.2 2.0 - 12.0 12/[address] HEMATOLOGY Eosinophils 1.2 0.0 - 4.0 12/[address] HEMATOLOGY Basophils 1.4 0.0 - 1.0 12/[address] HEMATOLOGY Neutrophils 6.5 1.5 - 8.1 12/17 [facility] /[address] [place] [address] HEMATOLOGY Lymphocytes 2.3 1.0 - 5.5 12/17 [facility] /[address] [place] [address] HEMATOLOGY Monocytes # 0.8 0.0 - 0.8 12/[address] HEMATOLOGY Eosinophils 0.1 0.0 - 0.5 12/17 [facility] /[address] [place] [address] HEMATOLOGY Basophils # 0.1 0.0 - 0.2 12/[address] URINE AND UA Color Dark Yellow Yellow 12/17 [facility] STOOL *NA* /2019 [facility] (12/18/19 5:06 AM) [place] URINE AND UA Turbidity Slight Clear 12/17 [facility] STOOL *ABN* [facility] (12/18/19 5:06 AM) [place] URINE AND UA Spec Grav 1.018 <=1.030 12/17 [facility] /[address] [place] [address] URINE AND UA pH 6.0 5.0 - 8.0 12/[address] URINE AND UA Protein 30 mg/dL Negative 12/17 [facility] STOOL mg/dL /[address] [place] [address] URINE AND UA Ketones Negative Negative 12/17 [facility] STOOL mg/dL mg/dL /[address] [place] [address] URINE AND UA Bili Negative Negative 12/17 [facility] STOOL *NA* /2019 [facility] (12/18/19 5:06 AM) [place] URINE AND UA Blood Negative Negative 12/17 [facility] STOOL (12/18/19 5:06 AM) /2019 [facility] URINE AND UA 4.0 0.1 - 1.0 12/17 [facility] Urobilinogen /[address] [place] [address] URINE AND UA Nitrite Negative Negative 12/17 [facility] STOOL (12/18/19 5:06 AM) [facility] URINE AND UA Leuk Est Negative Negative 12/17 [facility] (12/18/19 5:06 AM) /2019 [facility] URINE AND UA Sq Epi Moderate Few /LPF 12/17 [facility] STOOL /LPF /[address] [place] [address] URINE AND UA WBC 10 0 - 5 12/[address] URINE AND UA RBC 2 0 - 2 12/[address] URINE AND UA Bacteria Few /HPF None Seen 12/17 [facility] STOOL /HPF /[address] [place] [address] URINE AND UA Mucus Few /LPF None Seen 12/17 [facility] /LPF /[address] [place] [address] URINE AND UA Hyal Cast 7 0 - 2 12/[address] URINE AND UA [place] Yeast Occasional None Seen 12/17 [place] STOOL /HPF /HPF /[address] [place] [address] URINE AND UA Glucose 50mg/dl 12/[address] CHEM PANEL Glucose Lvl 266 70 - 99 12/[address] CHEM PANEL BUN 11 7 - 22 12/[address] CHEM PANEL Creatinine 0.80 0.50 - 12/16 [facility] Lvl 1.[address] [place] [address] CHEM PANEL Sodium Lvl 140 135 - 145 12/[address] CHEM PANEL Potassium 3.4 3.5 - 5.1 12/16 [facility] [place] [address] CHEM PANEL Chloride Lvl 105 95 - 109 12/16 [facility] [address] CHEM PANEL CO2 31 24 - 32 12/[address] CHEM PANEL Calcium Lvl 8.2 8.5 - 10.5 12/16 [facility] as [address] CHEM PANEL AGAP 7.4 10.0 - 12/16 [facility] 20.0 2019 [facility] CHEM PANEL eGFR 74 12/16 Result [facility] Comment: The Medical eGFR is Center [...] by the estimated BMI. CHEM PANEL Magnesium 1.9 1.8 - 2.4 12/16 [facility] Lvl /[address] [place] [address] CHEM PANEL Phosphorus 2.8 2.5 - 4.5 12/[address] HEMATOLOGY WBC 8.9 3.7 - 10.4 12/[address] HEMATOLOGY RBC 3.03 4.20 - 12/16 [place] 5.40 [facility] HEMATOLOGY Hgb 9.3 12.0 - 12/16 [place] 16.0 /2019 [facility] HEMATOLOGY Hct 28.4 36.0 - 12/16 [place] 48.0 /2019 [facility] HEMATOLOGY MCV 93.8 80.0 - 12/16 [place] 98.0 /2019 [facility] HEMATOLOGY MCH 30.7 27.0 - 12/16 [place] 31.0 /2019 [facility] HEMATOLOGY MCHC 32.8 32.0 - 12/16 [place] 36.0 /2019 [facility] HEMATOLOGY RDW 16.9 11.5 - 18 [place] 14.5 /2019 [facility] HEMATOLOGY Platelet 197 133 - 450 12/[address] HEMATOLOGY MPV 9.7 7.4 - 10.4 12/[address] HEMATOLOGY Segs 71.0 45.0 - 12/16 [place] 75.0 /2019 [facility] HEMATOLOGY Lymphocytes 16.3 20.0 - 18 [place] 40.0 /2020 [facility] HEMATOLOGY Monocytes 6.5 2.0 - 12.0 12/[address] HEMATOLOGY Eosinophils 4.0 0.0 - 4.0 12/16 [place]2019 [facility] HEMATOLOGY Basophils 2.2 0.0 - 1.0 12/[address] HEMATOLOGY Neutrophils 6.3 1.5 - 8.1 12/16 [facility] /2019 [facility] HEMATOLOGY Lymphocytes 1.4 1.0 - 5.5 12/16 [facility]2019 [facility] HEMATOLOGY Monocytes # 0.6 0.0 - 0.8 12/[address] HEMATOLOGY Eosinophils 0.4 0.0 - 0.5 12/16 [facility] /2019 [facility] HEMATOLOGY Basophils # 0.2 0.0 - 0.2 12/[address] CARDIAC Troponin-I 0.03 0.00 - 12/14 [facility] ENZYMES 0.40 [facility] CHEM PANEL Glucose Lvl 155 70 - 99 12/[address] CHEM PANEL BUN 12 7 - 22 12/[address] CHEM PANEL Creatinine 0.59 0.50 - 12/14 [facility] 2019 [facility] CHEM PANEL Sodium Lvl 142 135 - 145 12/[address] CHEM PANEL Potassium 3.9 3.5 - 5.1 12/[address] CHEM PANEL Chloride Lvl 103 95 - 109 12/[address] CHEM PANEL CO2 34 24 - 32 12/[address] CHEM PANEL Calcium Lvl 8.3 8.5 - 10.5 12/[address] CHEM PANEL AGAP 8.9 10.0 - 12/14 [facility] 20.0 2019 [facility] CHEM PANEL eGFR 92 12/14 Result [place] [id number] Comment: The Medical eGFR is Center calculated [...] CHEM PANEL Magnesium 2.1 1.8 - 2.4 12/14 [facility] Lvl /[address] [place] [address] CHEM PANEL Phosphorus 2.4 2.5 - 4.5 12/[address] HEMATOLOGY WBC 11.9 3.7 - 10.4 12/[address] HEMATOLOGY RBC 3.25 4.20 - 12/14 [place] 5.40 /2019 [facility] HEMATOLOGY Hgb 9.5 12.0 - 12/14 [facility] 16.0 /2019 [facility] HEMATOLOGY Hct 30.4 36.0 - 12/14 [place] 48.0 /[address] [place] [address] HEMATOLOGY MCV 93.5 80.0 - 12/14 [place] 98.0 /[address] [place] [address] HEMATOLOGY MCH 29.3 27.0 - 12/14 [place] 31.0 /[address] [place] [address] HEMATOLOGY MCHC 31.4 32.0 - 12/14 [place] 36.0 /[address] [place] [address] HEMATOLOGY RDW 17.3 11.5 - 12/14 [place] 14.5 /[address] [place] [address] HEMATOLOGY Platelet 193 133 - 450 12/[address] HEMATOLOGY MPV 10.2 7.4 - 10.4 12/[address] HEMATOLOGY Segs 69.3 45.0 - 12/14 [place] 75.0 /[address] [place] [address] HEMATOLOGY Lymphocytes 18.5 20.0 - 12/14 [place] 40.0 /2020 [facility] HEMATOLOGY Monocytes 7.6 2.0 - 12.0 12/[address] HEMATOLOGY Eosinophils 3.8 0.0 - 4.0 12/14 [facility] [place] [address] HEMATOLOGY Basophils 0.8 0.0 - 1.0 12/[address] HEMATOLOGY Neutrophils 8.3 1.5 - 8.1 12/14 [place] # /[address] [place] [address] HEMATOLOGY Lymphocytes 2.2 1.0 - 5.5 12/14 [place] # /[address] [place] [address] HEMATOLOGY Monocytes # 0.9 0.0 - 0.8 12/14 [place] /[address] [place] [address] HEMATOLOGY Eosinophils 0.5 0.0 - 0.5 12/14 [place] # /2019 [facility] HEMATOLOGY Basophils # 0.1 0.0 - 0.2 12/14 [facility]2020 [facility] HEMATOLOGY RBC Morph Normal Normal 12/13 [facility] (12/14/19 6:58 AM) /2019 [facility] [place] HEMATOLOGY Plt Morph Normal Normal 12/13 [facility] (12/14/19 6:58 AM) /2019 [facility] [place] CHEM PANEL Total 5.2 6.4 - 8.4 12/10 [facility] Protein /[address] [place] [address] CHEM PANEL Albumin Lvl 2.2 3.5 - 5.0 12/10 [facility] /2019 [facility] CHEM PANEL ALT 22 0 - 65 12/[address] CHEM PANEL AST 13 0 - 37 12/[address] CHEM PANEL Alk Phos 251 39 - 136 12/[address] CHEM PANEL Bili Total 0.9 0.2 - 1.3 12/[address] CHEM PANEL B/C Ratio 25 6 - 25 12/[address] CHEM PANEL Globulin 3.0 2.7 - 4.2 12/[address] CHEM PANEL A/G Ratio 0.7 0.7 - 1.6 12/[address] BODY FLUIDS Cris Occult Positive Negative 12/08 [facility] as Bld *ABN* /2019 [facility] (12/09/19 12:45 PM) Cente r HEMATOLOGY RBC Morph Normal Normal 12/08 [facility] (12/09/19 11:46 AM) /2019 [facility] [place] HEMATOLOGY Plt Morph Normal Normal 12/08 [facility] (12/09/19 11:46 AM) /2019 [facility] [place] CHEM PANEL Total 4.5 6.4 - 8.4 12/06 [facility] Protein /[address] [place] [address] CHEM PANEL Albumin Lvl 2.5 3.5 - 5.0 12/06 [facility] /[address] [place] [address] CHEM PANEL ALT 27 0 - 65 12/[address] CHEM PANEL AST 11 0 - 37 12/[address] CHEM PANEL Alk Phos 82 39 - [address] CHEM PANEL Bili Total 0.8 0.2 - 1.3 12/[address] CHEM PANEL Bili Direct 0.3 0.0 - 0.3 07/08 [place]2019 [facility] CHEM PANEL Bili 0.5 0.0 - 1.0 12/06 [facility] Indirect /2019 [facility] CHEM PANEL Globulin 2.0 2.7 - 4.2 12/06 [facility] /[address] [place] [address] CHEM PANEL A/G Ratio 1.2 0.7 - 1.6 12/06 [facility] /[address] [place] [address] PARATHYROID Ca Ion WB 1.05 1.05 - 12/06 [facility] PROFILE [address] [place] [address] PARATHYROID Ca Norm WB 1.09 1.05 - 12/06 [facility] PROFILE 1.25 [facility] HEMATOLOGY PTT 31.1 22.9 - 12/05 [place] 35.8 [facility] HEMATOLOGY PT 15.3 12.0 - 12/05 [facility] 14.7 [facility] HEMATOLOGY INR 1.20 0.85 - 12/05 [facility] 1.17 [facility] PARATHYROID Ca Ion WB 1.06 1.05 - 12/05 [facility] PROFILE [address] [place] [address] PARATHYROID Ca Norm WB 1.10 1.05 - 12/05 [facility] PROFILE . [facility] BLOOD BANK RBC product Product available 12/04 [facility] RESULTS (12/05/19 5:53 PM) /[address] [place] [address] HEMATOLOGY Plt Morph See Note 1 Normal 12/04 Result [facility] (12/05/19 5:43 PM) /2019 Comment: Mary Beth forde [facility] platelets are seen HEMATOLOGY Anisocyte 1+ None Seen 12/04 [facility] *ABN* /2019 [facility] (12/05/19 5:43 PM) [place] BLOOD BANK RBC product Product available 12/04 [facility] RESULTS (12/05/19 5:21 PM) /2019 [facility] BLOOD BANK Antibody Negative 12/04 [facility] RESULTS Scrn (12/05/19 1:02 AM) /2019 [facility] BLOOD BANK ABO/Rh O POS 12/04 [facility] RESULTS /2019 [facility] BLOOD BANK BB Note Result Note 5 12/04 Result [facility] RES[facility] (12/05/19 1:02 AM) /2019 Comment: Medica l 12/05/2019 [place] 15:15 LIPETERS
Blood available, notified Alyx Weston in [place] 2 at 0305 by lp. HEMATOLOGY PT 12.8 12.0 - 12/04 [place] 14.7 [facility] HEMATOLOGY INR 0.96 0.85 - 12/04 [facility] 1.17 /2019 [facility] HEMATOLOGY PTT 28.3 22.9 - 12/04 [facility] 35.8 [facility] CHEM PANEL Glucose Lvl 146 70 - 99 07 [facility] CHEM PANEL BUN 16 7 - 22 07 [facility] CHEM PANEL Creatinine 0.75 0.50 - 11/30 [facility] 1[facility]40 [facility] CHEM PANEL Sodium Lvl 142 135 - 145 07 [facility]2019 [facility] CHEM PANEL Potassium 3.7 3.5 - 5.1 07/ [facility] CHEM PANEL Chloride Lvl 106 95 - 109 07 [facility] s [facility] CHEM PANEL CO2 29 24 - 32 11/30 [facility]2019 [facility] CHEM PANEL Calcium Lvl 8.3 8.5 - 10.5 11/30 [facility] as [facility] CHEM PANEL AGAP 10.7 10.0 - 11/30 [facility] 20.0 [facility] CHEM PANEL eGFR 80 11/30 [facility] Comment: The Medical eGFR is Center [...] be multiplied by the estimated BMI. HEMATOLOGY WBC 11.0 3.7 - 10.4 07/ [facility] HEMATOLOGY RBC 4.45 4.20 - 07/ [facility] 5.40 [facility] HEMATOLOGY Hgb 13.7 12.0 - 07/ [facility] 16.0 [facility] HEMATOLOGY Hct 41.0 36.0 - 07/ [facility] 48.0 /[address] [place] [address] HEMATOLOGY MCV 92.1 80.0 - 11/30 [facility] 98.0 /[address] [place] [address] HEMATOLOGY MCH 30.7 27.0 - 07 [facility] 31.0 /2019 [facility] HEMATOLOGY MCHC 33.4 32.0 - / [facility] 36.0 /[address] [place] [address] HEMATOLOGY RDW 16.7 11.5 - 11/30 [facility] 14.5 /[address] [place] [address] HEMATOLOGY Platelet 173 133 - [address] HEMATOLOGY MPV 9.6 7.4 - 10.4 11/[address] HEMATOLOGY Segs 67.9 45.0 - 07 [facility] 75.0 /[address] [place] [address] HEMATOLOGY Lymphocytes 20.7 20.0 - 11/30 [facility] 40.[address] HEMATOLOGY Monocytes 9.8 2.0 - 12.0 11/[address] HEMATOLOGY Eosinophils 0.7 0.0 - 4.0 11/[address] HEMATOLOGY Basophils 0.9 0.0 - 1.0 11/[address] HEMATOLOGY Neutrophils 7.4 1.5 - 8.1 11/[address] HEMATOLOGY Lymphocytes 2.3 1.0 - 5.5 11/[address] HEMATOLOGY Monocytes # 1.1 0.0 - 0.8 11/[address] HEMATOLOGY Eosinophils 0.1 0.0 - 0.5 11/[address] HEMATOLOGY Basophils # 0.1 0.0 - 0.2 11/[address] URINE AND UA Color Light Yellow Yellow 11/30 [facility] STOOL *NA* /[address] [place] [address] (11/30/19 8:14 PM) [place] URINE AND UA Turbidity Clear Clear 11/30 [facility] (11/30/19 8:14 PM) [address] URINE AND UA Spec Grav 1.012 <=1.030 11/[address] URINE AND UA pH 7.0 5.0 - 8.0 11/[address] URINE AND UA Protein Negative Negative 11/30 [facility] STOOL mg/dL mg/dL /[address] [place] [address] URINE AND UA Ketones 20 mg/dL Negative 11/30 [facility] mg/dL /[address] [place] [address] URINE AND UA Bili Negative Negative 11/30 [facility] *NA* /2019 [facility] (11/30/19 8:14 PM) Center URINE AND UA Blood Small Negative 11/30 [facility] *ABN* /2019 [facility] (11/30/19 8:14 PM) [place] URINE AND UA <1.0 0.1 - 1.0 11/30 [facility] Urobilinogen /[address] [place] [address] URINE AND UA Nitrite Negative Negative 11/30 [facility] (11/30/19 8:14 PM) /[address] [place] [address] URINE AND UA Leuk Est Negative Negative 11/30 [facility] (11/30/19 8:14 PM) /[address] [place] [address] URINE AND UA Sq Epi Occasional Few /LPF 11/30 [facility] /LPF /[address] [place] [address] URINE AND UA WBC <1 0 - 5 11/[address] URINE AND UA RBC 1 0 - 2 11/[address] URINE AND UA Bacteria Occasional None Seen 11/30 [place] STOOL /HPF /HPF /[address] [place] [address] URINE AND UA Mucus Few /LPF None Seen 11/30 [facility] /LPF /[address] [place] [address] URINE AND UA Glucose 50mg/dl 11/[address] CHEM PANEL Glucose Lvl 116 70 - 99 11/[address] CHEM PANEL BUN 22 7 - 22 11/[address] CHEM PANEL Creatinine 0.83 0.50 - 11/29 [facility] 1.40 /[address] [place] [address] CHEM PANEL Sodium Lvl 140 135 - 145 11/[address] CHEM PANEL Potassium 5.3 3.5 - 5.1 11/29 Result [facility] Comment: Medical Specimen Center Grossly Hemolyzed. CHEM PANEL Chloride Lvl 105 95 - 109 07 [facility] s [address] CHEM PANEL CO2 28 24 - 32 11/[address] CHEM PANEL Calcium Lvl 7.8 8.5 - 10.5 11/[address] CHEM PANEL AGAP 12.3 10.0 - 07 [facility] 20.[address] CHEM PANEL eGFR 71 07 Result [place] [id number] Comment: The Medical eGFR is Center calculated [...] be multiplied by the estimated BMI. HEMATOLOGY WBC 10.6 3.7 - 10.4 07/ [address] HEMATOLOGY RBC 4.40 4.20 - 07 [place] 5.40 /2019 [facility] HEMATOLOGY Hgb 13.0 12.0 - 07 [place] 16.0 /2019 [facility] HEMATOLOGY Hct 40.0 36.0 - 07 [place] 48.0 /2019 [facility] HEMATOLOGY MCV 91.0 80.0 - 07/ [place] 98.0 /2019 [facility] HEMATOLOGY MCH 29.5 27.0 - 07/ [place] 31.0 [facility] HEMATOLOGY MCHC 32.4 32.0 - 07/ [place] 36.0 [facility] HEMATOLOGY RDW 16.5 11.5 - 07/ [place] 14.5 [facility] HEMATOLOGY Platelet 153 133 - 450 07/ [address] HEMATOLOGY MPV 10.0 7.4 - 10.4 / [address] HEMATOLOGY PT 13.3 12.0 - 07/ [place] 14.7 /2019 [facility] HEMATOLOGY INR 1.01 0.85 - 07/ [place] 1.17 [facility] HEMATOLOGY PTT 29.5 22.9 - 07/ [place] 35.8 /2019 [facility] HEMATOLOGY Segs 59.5 45.0 - 07/01 [place] 75.0 /2020 [facility] HEMATOLOGY Lymphocytes 29.2 20.0 - 07/01 [place] 40.0 /2020 [facility] HEMATOLOGY Monocytes 9.3 2.0 - 12.0 11/[address] HEMATOLOGY Eosinophils 1.0 0.0 - 4.0 11/[address] HEMATOLOGY Basophils 1.0 0.0 - 1.0 11/[address] HEMATOLOGY Neutrophils 6.3 1.5 - 8.1 11/[address] HEMATOLOGY Lymphocytes 3.1 1.0 - 5.5 11/29 [facility]2019 [facility] HEMATOLOGY Monocytes # 1.0 0.0 - 0.8 11/[address] HEMATOLOGY Eosinophils 0.1 0.0 - 0.5 11/[address] HEMATOLOGY Basophils # 0.1 0.0 - 0.2 11/[address] BLOOD BANK ABO/Rh O POS 11/28 [facility] RESULTS [address] BLOOD BANK Antibody Negative 11/28 [facility] RESULTS Scrn (11/29/19 4:04 AM) [facility] CHEM PANEL Glucose Lvl 97 70 - 99 11/[address] CHEM PANEL BUN 26 7 - 22 11/[address] CHEM PANEL Creatinine 0.90 0.50 - 11/28 [facility] 1.[facility] 2019 [facility] CHEM PANEL Sodium Lvl 140 135 - 145 11/[address] CHEM PANEL Potassium 3.9 3.5 - 5.1 11/[address] CHEM PANEL Chloride Lvl 106 95 - 109 11/[address] CHEM PANEL CO2 32 24 - 32 11/[address] CHEM PANEL Calcium Lvl 8.7 8.5 - 10.5 11/[address] CHEM PANEL AGAP 5.9 10.0 - 11/28 [facility] 20.0 2019 [facility] CHEM PANEL eGFR 64 11/28 Result [place] [id number] Comment: The Medical eGFR is Center calculated [...] be multiplied by the estimated BMI. HEMATOLOGY PT 13.6 12.0 - 11/28 [place] 14.7 /2019 [facility] HEMATOLOGY INR 1.04 0.85 - 11/28 [place] 1.17 [facility] HEMATOLOGY PTT 30.9 22.9 - 11/28 [place] 35.8 /2019 [facility] HEMATOLOGY WBC 10.6 3.7 - 10.4 11/[address] HEMATOLOGY RBC 4.50 4.20 - 11/28 [place] 5.40 /2019 [facility] HEMATOLOGY Hgb 13.5 12.0 - 11/28 [place] 16.0 /2019 [facility] HEMATOLOGY Hct 40.4 36.0 - 11/28 [place] 48.0 /2019 [facility] HEMATOLOGY MCV 89.8 80.0 - 11/28 [place] 98.0 /2019 [facility] HEMATOLOGY MCH 30.0 27.0 - 11/28 [place] 31.0 /2019 [facility] HEMATOLOGY MCHC 33.4 32.0 - 11/28 [place] 36.0 /2019 [facility] HEMATOLOGY RDW 16.7 11.5 - 11/28 [facility] 14.5 /2019 [facility] HEMATOLOGY Platelet 155 133 - 450 11/[address] HEMATOLOGY MPV 9.5 7.4 - 10.4 11/[address] HEMATOLOGY Segs 65.7 45.0 - 30 [place] 75.0 /[address] [place] [address] HEMATOLOGY Lymphocytes 24.6 20.0 - 30 [place] 40.0 2020 [facility] HEMATOLOGY Monocytes 8.2 2.0 - 12.[address] HEMATOLOGY Eosinophils 0.8 0.0 - 4.0 11/[place] 2019 [facility] HEMATOLOGY Basophils 0.7 0.0 - 1.[address] HEMATOLOGY Neutrophils 6.9 1.5 - 8.1 06/30 [facility] # /2019 [facility] HEMATOLOGY Lymphocytes 2.6 1.0 - 5.5 11/28 [facility] # /2019 [facility] HEMATOLOGY Monocytes # 0.9 0.0 - 0.8 11/28 [facility] /2020 [facility] HEMATOLOGY Eosinophils 0.1 0.0 - 0.5 11/28 [facility] # /2019 [facility] HEMATOLOGY Basophils # 0.1 0.0 - 0.2 11/28 [facility] /2019 [facility] IMMUNOLOGY Coronavirus Not Detected Not 11/26 [facility] (COVID-19) (11/27/19 4:00 PM) Detected [facility] CHEM PANEL Glucose Lvl 137 70 - 99 11/[address] CHEM PANEL BUN 24 7 - 22 11/[address] CHEM PANEL Creatinine 0.60 0.50 - 11/26 [facility] Lvl 1.40 [facility] CHEM PANEL Sodium Lvl 143 135 - 145 11/[address] CHEM PANEL Potassium 3.4 3.5 - 5.1 11/26 [facility] /[address] [place] [address] CHEM PANEL Chloride Lvl 107 95 - 109 11/26 [facility]2019 [facility] CHEM PANEL CO2 29 24 - 32 11/[address] CHEM PANEL Calcium Lvl 8.3 8.5 - 10.5 11/26 [facility] /2019 [facility] CHEM PANEL AGAP 10.4 10.0 - 11/26 [facility] 20.0 [facility] CHEM PANEL eGFR 91 11/26 Result Comment: The Medical eGFR is Center [...] be multiplied by the estimated BMI. HEMATOLOGY WBC 10.2 3.7 - 10.4 11/[address] HEMATOLOGY RBC 4.57 4.20 - 11/26 [facility] 5.40 [facility] HEMATOLOGY Hgb 13.6 12.0 - 11/26 [facility] 16.0 [facility] HEMATOLOGY Hct 41.4 36.0 - 11/26 [facility] 48.0 2019 [facility] HEMATOLOGY MCV 90.4 80.0 - 11/26 [facility] 98.0 [facility] HEMATOLOGY MCH 29.8 27.0 - 11/26 [facility] 31.0 [facility] HEMATOLOGY MCHC 32.9 32.0 - 11/26 [facility] 36.0 2019 [facility] HEMATOLOGY RDW 16.7 11.5 - 11/26 [facility] 14.5 2019 [facility] HEMATOLOGY Platelet 146 133 - 450 11/[address] HEMATOLOGY MPV 9.8 7.4 - 10.4 11/[address] LIPIDS Trig 167 <=149 11/24 [facility] mg/dL [address] LIPIDS Chol 151 <=199 11/24 [facility] mg/dL [address] LIPIDS HDL 50 >=61 mg/dL 11/[address] LIPIDS CHD Risk 3.02 3.90 - 11/24 [facility] 5.[address] LIPIDS LDL 68 <=99 mg/dL 11/24 [facility] (Calculated) [address] LIPIDS VLDL 33 11/[address] SPECIAL Hgb A1C 8.5 <=5.6 % 11/24 [facility] CHEMISTRY [address] HEMATOLOGY Anti-Xa Low 0.45 11/24 [facility] Molecular [address] [facility] CHEM PANEL Glucose Lvl 132 70 - 99 11/[address] CHEM PANEL BUN 19 7 - 22 11/[address] CHEM PANEL Creatinine 0.76 0.50 - 11/23 [facility] Lvl 1.[address] [place] [address] CHEM PANEL Sodium Lvl 141 135 - 145 11/[address] CHEM PANEL Potassium 3.7 3.5 - 5.1 11/23 [facility] /[address] [place] [address] CHEM PANEL Chloride Lvl 108 95 - 109 11/23 [facility] CHEM PANEL CO2 27 24 - 32 11/[address] CHEM PANEL AGAP 9.7 10.0 - 11/23 [facility] 20.0 [facility] CHEM PANEL Calcium Lvl 8.7 8.5 - 10.5 11/23 [facility] as [facility] CHEM PANEL eGFR 79 11/23 Result Comment: The Medical eGFR is Center [...] multiplied by the estimated BMI. HEMATOLOGY Segs 90.7 45.0 - 11/23 [facility] 75.0 [facility] HEMATOLOGY Lymphocytes 6.4 20.0 - 11/23 [facility] 40.0 [facility] HEMATOLOGY Monocytes 2.1 2.0 - 12.0 11/[address] HEMATOLOGY Eosinophils 0.3 0.0 - 4.0 11/23 [facility] /2019 [facility] HEMATOLOGY Basophils 0.5 0.0 - 1.0 11/[address] HEMATOLOGY Neutrophils 15.1 1.5 - 8.1 11/23 [facility] s # [facility] HEMATOLOGY Lymphocytes 1.1 1.0 - 5.5 11/23 [facility] # /2019 [facility] HEMATOLOGY Monocytes # 0.3 0.0 - 0.8 11/23 [facility] s [address] HEMATOLOGY Basophils # 0.1 0.0 - 0.2 11/23 [facility] s /2019 [facility] HEMATOLOGY WBC 16.7 3.7 - 10.4 11/[address] HEMATOLOGY RBC 5.00 4.20 - 11/23 [place] 5.40 [facility] HEMATOLOGY Hgb 15.1 12.0 - 11/23 [facility] 16.0 [facility] HEMATOLOGY Hct 45.1 36.0 - 11/23 [facility] 48.0 [facility] HEMATOLOGY MCV 90.2 80.0 - 11/23 [facility] 98.0 [facility] HEMATOLOGY MCH 30.1 27.0 - 11/23 [facility] 31.0 [facility] HEMATOLOGY MCHC 33.4 32.0 - 11/23 [facility] 36.0 [facility] HEMATOLOGY RDW 16.3 11.5 - 11/23 [facility] 14.5 [facility] HEMATOLOGY Platelet 148 133 - 450 11/23 [facility]2019 [facility] HEMATOLOGY MPV 9.6 7.4 - 10.4 11/[address] CHEM PANEL Glucose Lvl 375 70 - 99 11/[address] CHEM PANEL BUN 18 7 - 22 11/[address] CHEM PANEL Creatinine 0.96 0.50 - 11/22 [facility] Lvl 1.40 [facility] CHEM PANEL Sodium Lvl 137 135 - 145 11/[address] CHEM PANEL Potassium 4.3 3.5 - 5.1 11/22 [facility] /2019 [facility] CHEM PANEL Chloride Lvl 105 95 - 109 11/22 [facility] s [facility] CHEM PANEL CO2 26 24 - 32 11/[address] CHEM PANEL AGAP 10.3 10.0 - 11/22 [facility] 20.0 [facility] CHEM PANEL Calcium Lvl 8.8 8.5 - 10.5 11/22 [facility] as [facility] CHEM PANEL eGFR 59 11/22 [facility] Comment: The Medical eGFR is Center [...] multiplied by the estimated BMI. HEMATOLOGY Segs 81.3 45.0 - 11/22 [place] 75.0 /2019 [facility] HEMATOLOGY Lymphocytes 11.5 20.0 - 11/22 [place] 40.0 /2019 [facility] HEMATOLOGY Monocytes 5.4 2.0 - 12.0 11/[address] HEMATOLOGY Eosinophils 0.8 0.0 - 4.0 11/[address] HEMATOLOGY Basophils 1.0 0.0 - 1.0 11/[address] HEMATOLOGY Neutrophils 15.8 1.5 - 8.1 11/22 [place] # /2020 [facility] HEMATOLOGY Lymphocytes 2.2 1.0 - 5.5 11/22 [facility] s # /[address] [place] [address] HEMATOLOGY Monocytes # 1.1 0.0 - 0.8 11/22 [facility] [place] [address] HEMATOLOGY Eosinophils 0.2 0.0 - 0.5 11/22 [facility] s # /[address] [place] [address] HEMATOLOGY Basophils # 0.2 0.0 - 0.2 11/22 [facility] s /[address] [place] [address] HEMATOLOGY WBC 19.4 3.7 - 10.4 11/[address] HEMATOLOGY RBC 5.40 4.20 - 11/22 [place] 5.40 /2019 [facility] HEMATOLOGY Hgb 16.1 12.0 - 11/22 [place] 16.0 /2019 [facility] HEMATOLOGY Hct 49.1 36.0 - 11/22 [place] 48.0 /2019 [facility] HEMATOLOGY MCV 91.0 80.0 - 11/22 [place] 98.0 /2019 [facility] HEMATOLOGY MCH 29.9 27.0 - 11/22 [place] 31.0 /2019 [facility] HEMATOLOGY MCHC 32.9 32.0 - 11/22 [place] 36.0 /2020 [facility] HEMATOLOGY RDW 16.7 11.5 - 11/22 [place] 14.5 /2019 [facility] HEMATOLOGY Platelet 168 133 - 450 11/[address] HEMATOLOGY MPV 9.8 7.4 - 10.4 11/[address] CARDIAC Troponin-I 0.04 0.00 - 11/22 [facility] ENZYMES 0.40 [facility] CHEM PANEL Lactic Acid 1.7 0.5 - 2.2 11/[address] IMMUNOLOGY Coronavirus Not Detected Not 11/21 [place] (COVID-19) (11/22/19 11:05 AM) Detected /2019 edical [facility] CHEM PANEL Lactic Acid 2.6 0.5 - 2.2 11/21 [facility]2019 [facility] URINE AND UA Color Veronique Yellow 11/21 [facility] STOOL *ABN* /2019 [facility] (11/22/19 7:20 AM) [place] URINE AND UA Turbidity Slight Clear 11/21 [facility] *ABN* /[address] [place] [address] (11/22/19 7:20 AM) [place] URINE AND UA Spec Grav 1.035 <=1.030 11/[address] URINE AND UA pH 5.0 5.0 - 8.0 11/[address] URINE AND UA Protein 30 mg/dL Negative 11/21 [facility] STOOL mg/dL /[address] [place] [address] URINE AND UA Ketones Negative Negative 11/21 [facility] mg/dL mg/dL /[address] [place] [address] URINE AND UA Bili Negative Negative 11/21 [facility] STOOL *NA* /2019 [facility] (11/22/19 7:20 AM) [place] URINE AND UA Blood Negative Negative 11/21 [facility] (11/22/19 7:20 AM) [facility] URINE AND UA 2.0 0.1 - 1.0 11/21 [facility] Urobilinogen /[address] [place] [address] URINE AND UA Nitrite Negative Negative 11/21 [facility] (11/22/19 7:20 AM) [facility] URINE AND UA Leuk Est Negative Negative 11/21 [facility] (11/22/19 7:20 AM) [facility] URINE AND UA WBC 1 0 - 5 11/21 [facility] /[address] [place] [address] URINE AND UA RBC 7 0 - 2 11/[address] URINE AND UA Mucus Few /LPF None Seen 11/21 [facility] STOOL /LPF /[address] [place] [address] URINE AND UA Hyal Cast 4 0 - 2 11/21 [facility] URINE AND UA Sq Epi None Seen 11/21 [facility] URINE AND UA Glucose 50mg/dl 11/21 [facility]2019 [facility] HEMATOLOGY PT 12.4 12.0 - 11/21 [facility] 14.7 [facility] HEMATOLOGY INR 0.92 0.85 - 11/21 [facility] 1.17 [facility] HEMATOLOGY PTT 25.1 22.9 - 11/21 [place] 35.8 [facility] HEMATOLOGY ACT (TEG) 89 86 - 118 11/21 [facility]2019 [facility] HEMATOLOGY [place] 0.3 11/21 [facility]2019 [facility] HEMATOLOGY R-time Rapid 0.4 0.4 - 0.7 11/21 [facility] HEMATOLOGY K-time Rapid 1.3 0.6 - 2.3 11/21 [facility]2019 [facility] HEMATOLOGY Angle Rapid 75 64 - 80 11/[address] HEMATOLOGY Max 64 52 - 71 11/21 [facility] HEMATOLOGY G-value 9.0 5.0 - 11.6 11/21 [facility] HEMATOLOGY Estimated % 0.0 0.0 - 7.5 11/[place] [facility] HEMATOLOGY RBC Morph Normal Normal 11/21 [facility] (11/22/19 6:40 AM) [facility] HEMATOLOGY Plt Morph Normal Normal 11/21 [facility] (11/22/19 6:40 AM) /2019 [facility] HEMATOLOGY Segs 77.5 45.0 - 11/21 [facility] 75.0 [facility] HEMATOLOGY Lymphocytes 14.2 20.0 - 11/21 [place] 40.0 [facility] HEMATOLOGY Monocytes 6.8 2.0 - 12.0 11/[address] HEMATOLOGY Eosinophils 0.2 0.0 - 4.0 11/21 [place]2019 [facility] HEMATOLOGY Basophils 1.3 0.0 - 1.0 11/[address] HEMATOLOGY Neutrophils 16.9 1.5 - 8.1 11/21 [place] # /2019 [facility] HEMATOLOGY Lymphocytes 3.1 1.0 - 5.5 11/21 [place] # /2019 [facility] HEMATOLOGY Monocytes # 1.5 0.0 - 0.8 11/21 [facility] s /[address] [place] [address] HEMATOLOGY Eosinophils 0.1 0.0 - 0.5 11/21 [facility] s # [facility] HEMATOLOGY Basophils # 0.3 0.0 - 0.2 11/21 [facility] s [address] HEMATOLOGY Large Plt Slight 11/[address] BLOOD BANK ABO/Rh O POS 11/21 [facility] RESULTS /[address] [place] [address] BLOOD BANK Antibody Negative 11/21 [facility] RESULTS Scrn (11/22/19 5:56 AM) [facility] CARDIAC Total CK 840 12 - 191 11/21 [facility] ENZYMES /[address] [place] [address] CARDIAC Troponin-I 0.05 0.00 - 11/21 [facility] ENZYMES 0.40 [facility] CHEM PANEL Total 5.8 6.4 - 8.4 11/21 [facility] Protein [address] CHEM PANEL Albumin Lvl 2.4 3.5 - 5.0 11/21 [facility] s [address] CHEM PANEL ASPARTATE 355 0 - 37 11/21 [facility] TRANSAMINASE [address] CHEM PANEL Alk Phos 102 39 - 136 11/[address] CHEM PANEL Bili Total 1.2 0.2 - 1.3 11/[address] CHEM PANEL Bili Direct 0.3 0.0 - 0.3 11/[address] CHEM PANEL Bili 0.9 0.0 - 1.0 11/21 [facility] Indirect [address] CHEM PANEL Globulin 3.4 2.7 - 4.2 11/[address] CHEM PANEL A/G Ratio 0.7 0.7 - 1.6 11/[address] CHEM PANEL ALT 155 0 - 65 11/[address] HEMATOLOGY Segs 60.1 45.0 - 03/04 [place] 75.0 [facility] HEMATOLOGY Lymphocytes 32.3 20.0 - 10 [place] 40.0 [facility] HEMATOLOGY Monocytes 5.9 2.0 - 12.0 03/[address] HEMATOLOGY Eosinophils 0.7 0.0 - 4.0 03/[address] HEMATOLOGY Basophils 1.0 0.0 - 1.0 03/[address] HEMATOLOGY Neutrophils 4.3 1.5 - 8.1 03/04 [place] # /2019 [facility] Center HEMATOLOGY Lymphocytes 2.3 1.0 - 5.5 03/04 [place] # /2019 [facility] HEMATOLOGY Monocytes # 0.4 0.0 - 0.8 03/04 [place] /2018 [facility] HEMATOLOGY Basophils # 0.1 0.0 - 0.2 03/04 [facility] s /2018 [facility] HEMATOLOGY Sed Rate 2 0 - 20 03/04 [facility] HEMATOLOGY WBC 7.2 3.7 - 10.4 03/04 [facility] HEMATOLOGY RBC 3.76 4.20 - 03/04 [place] 5.40 /2019 [facility] HEMATOLOGY Hgb 12.1 12.0 - 03/04 [place] 16.0 2019 [facility] HEMATOLOGY Hct 36.8 36.0 - 03/04 [facility] 48.0 2019 [facility] HEMATOLOGY MCV 97.9 80.0 - 03/04 [facility] 98.0 /2019 [facility] HEMATOLOGY MCH 32.1 27.0 - 03/04 [place] 31.0 /2019 [facility] HEMATOLOGY MCHC 32.8 32.0 - 03/04 [place] 36.0 2019 [facility] HEMATOLOGY RDW 16.7 11.5 - 03/04 [place] 14.5 2019 [facility] HEMATOLOGY Platelet 131 133 - 450 03/04 [facility] HEMATOLOGY MPV 8.9 7.4 - 10.4 03/04 [facility] IMMUNOLOGY C-REACTIVE <2.9 <=2.9 mg/L 03/04 [place] [facility] BLOOD BANK ABO/Rh O POS 02/26 [facility] RESULTS /2018 [facility] BLOOD BANK Antibody Negative 02/26 [facility] RESULTS Scrn (02/26/19 7:49 AM) [facility] HEMATOLOGY Segs 67.8 45.0 - 02/25 [place] 75.0 /2019 [facility] HEMATOLOGY Lymphocytes 22.9 20.0 - 02/25 [place] 40.0 2019 [facility] HEMATOLOGY Monocytes 7.8 2.0 - 12.0 02/25 [facility] HEMATOLOGY Eosinophils 0.4 0.0 - 4.0 02/25 [place] [facility] HEMATOLOGY Basophils 1.1 0.0 - 1.0 02/25 [place] [facility] HEMATOLOGY Neutrophils 6.3 1.5 - 8.1 02/25 [place] # /2018 [facility] HEMATOLOGY Lymphocytes 2.1 1.0 - 5.5 02/25 [place] # /2018 [facility] HEMATOLOGY Monocytes # 0.7 0.0 - 0.8 02/25 [facility] HEMATOLOGY Basophils # 0.1 0.0 - 0.2 02/25 [facility] s [facility] HEMATOLOGY Macrocyte 1+ None Seen 02/25 [facility] *ABN* /2018 [facility] (02/25/19 4:11 AM) [place] HEMATOLOGY WBC 9.2 3.7 - 10.4 02/25 [facility] HEMATOLOGY RBC 3.50 4.20 - 02/25 [facility] 5.40 [facility] HEMATOLOGY Hgb 11.5 12.0 - 02/25 [facility] 16.0 [facility] HEMATOLOGY Hct 35.5 36.0 - 02/25 [facility] 48.0 [facility] HEMATOLOGY MCV 101.5 80.0 - 02/25 [facility] 98.0 [facility] HEMATOLOGY MCH 32.7 27.0 - 02/25 [facility] 31.0 [facility] HEMATOLOGY MCHC 32.2 32.0 - 02/25 [facility] 36.0 [facility] HEMATOLOGY RDW 17.4 11.5 - 02/25 [facility] 14.5 [facility] HEMATOLOGY Platelet 120 133 - 450 02/25 [facility] HEMATOLOGY MPV 9.2 7.4 - 10.4 02/25 [facility] CHEM PANEL Glucose Lvl 143 70 - 99 02/22 [facility] CHEM PANEL BUN 20 7 - 22 02/22 [facility] CHEM PANEL Creatinine 0.89 0.50 - 02/22 [facility] Lvl 1.40 [facility] CHEM PANEL Sodium Lvl 143 135 - 145 02/22 [facility]2018 [facility] CHEM PANEL Potassium 4.3 3.5 - 5.1 02/22 [facility] CHEM PANEL Chloride Lvl 107 95 - 109 02/22 [facility] CHEM PANEL CO2 27 24 - 32 02/22 [facility]2018 [facility] CHEM PANEL AGAP 13.3 10.0 - 02/22 [facility] 20.0 [facility] CHEM PANEL Calcium Lvl 8.9 8.5 - 10.5 02/22 [facility] CHEM PANEL eGFR 65 02/22 Result Comment: The Medical eGFR is Center [...] Segs 63.7 45.0 - 02/22 [place] 75.0 [facility] HEMATOLOGY Lymphocytes 26.8 20.0 - 02/22 [place] 40.0 [facility] HEMATOLOGY Monocytes 8.0 2.0 - 12.0 02/22 [facility] HEMATOLOGY Eosinophils 0.4 0.0 - 4.0 02/22 [facility] HEMATOLOGY Basophils 1.1 0.0 - 1.0 02/22 [facility] HEMATOLOGY Neutrophils 6.4 1.5 - 8.1 02/22 [facility] HEMATOLOGY Lymphocytes 2.7 1.0 - 5.5 02/22 [facility] # [facility] HEMATOLOGY Monocytes # 0.8 0.0 - 0.8 02/22 [facility] HEMATOLOGY Basophils # 0.1 0.0 - 0.2 02/22 [facility] s [facility] HEMATOLOGY WBC 10.1 3.7 - 10.4 02/22 [facility] HEMATOLOGY RBC 3.93 4.20 - 02/22 [place] 5.40 [facility] HEMATOLOGY Hgb 12.7 12.0 - 02/22 [place] 16.0 [facility] HEMATOLOGY Hct 38.8 36.0 - 02/22 [facility] [place] 48.0 /2019 [facility] HEMATOLOGY MCV 98.9 80.0 - 02/22 98.0 [facility] HEMATOLOGY MCH 32.4 27.0 - 02/22 31.0 [facility] HEMATOLOGY MCHC 32.7 32.0 - 02/22 36.0 [facility] HEMATOLOGY RDW 17.3 11.5 - 02/22 14.5 [facility] HEMATOLOGY Platelet 189 133 - 450 02/22 [facility] HEMATOLOGY MPV 9.8 7.4 - 10.4 02/22 [facility] CHEM PANEL Glucose Lvl 95 70 - 99 02/21 [facility] CHEM PANEL BUN 18 7 - 22 02/21 [facility] CHEM PANEL Creatinine 0.77 0.50 - 02/21 [facility] Lvl 1.40 [facility] CHEM PANEL Sodium Lvl 143 135 - 145 02/21 [facility] CHEM PANEL Potassium 4.1 3.5 - 5.1 02/21 Result [facility] Comment: [facility] Slightly Hemolyzed. CHEM PANEL Chloride Lvl 109 95 - 109 02/21 [facility] CHEM PANEL CO2 26 24 - 32 02/21 [facility] CHEM PANEL Calcium Lvl 8.5 8.5 - 10.5 02/21 [place] [facility] CHEM PANEL eGFR 78 02/21 Result Comment: [facility] eGFR is Center calculated using the CKD-EPI [...] CHEM PANEL AGAP 12.1 10.0 - 02/21 [facility] 20.0 [facility] CHEM PANEL Magnesium 2.0 1.8 - 2.4 02/[address] CHEM PANEL Phosphorus 3.5 2.5 - 4.5 02/[address] ELECTROLYTE AGAP 11.1 10.0 - 02/19 [facility] 20.0 [facility] ELECTROLYTE Glucose Lvl 73 70 - 99 02/[address] ELECTROLYTE BUN 21 7 - 22 02/[address] ELECTROLYTE Creatinine 0.66 0.50 - 02/19 [facility] Lvl 1.40 [facility] ELECTROLYTE Sodium Lvl 140 135 - 145 02/19 [facility]2018 [facility] ELECTROLYTE Potassium 4.1 3.5 - 5.1 02/[address] ELECTROLYTE Chloride Lvl 107 95 - 109 02/19 [facility]2018 [facility] ELECTROLYTE CO2 26 24 - 32 02/[address] ELECTROLYTE Calcium Lvl 8.6 8.5 - 10.5 02/[address] [place] [facility]2018 [facility] ELECTROLYTE Albumin Lvl 2.1 3.5 - 5.0 02/19 [facility]2018 [facility] ELECTROLYTE Phosphorus 3.0 2.5 - 4.5 02/[address] ELECTROLYTE eGFR 88 02/19 [facility] Comment: The Medical eGFR is [...] HEMATOLOGY Eosinophils 0.1 0.0 - 0.5 02/19 [facility] CHEM PANEL Magnesium 2.4 1.8 - 2.4 02/[address] CHEM PANEL Phosphorus 5.0 2.5 - 4.5 02/[address] HEMATOLOGY Bands 0.0 0.0 - 11.0 02/[address] HEMATOLOGY Myelocytes 2.0 <=0.0 % 02/[address] HEMATOLOGY Atypical 0.0 <=0.0 % 02/[address] HEMATOLOGY NRBC 1 02/[address] HEMATOLOGY Plt Morph Normal Normal 02/18 [facility] (02/18/19 3:45 AM) 2018 [facility] HEMATOLOGY Macrocyte 1+ None Seen [facility]/18 [facility] (02/18/19 3:45 AM) [place] HEMATOLOGY Polychrom Slight 02/[address] TOXICOLOGY Vanco Tr 18.8 02/[address] TOXICOLOGY Vanco Tr TND 2200 02/[address] HEMATOLOGY Bands 1.0 0.0 - 11.0 02/[address] HEMATOLOGY Metamyelocyt 2.0 0.0 - 1.0 02/[address] HEMATOLOGY Myelocytes 3.0 <=0.0 % 02/[address] HEMATOLOGY Atypical 0.0 <=0.0 % 02/[address] HEMATOLOGY Eosinophils 0.2 0.0 - 0.5 02/15 [facility] [address] [place] [address] HEMATOLOGY Bands 0.0 0.0 - 11.0 02/[address] HEMATOLOGY Metamyelocyt 1.0 0.0 - 1.0 02/[address] HEMATOLOGY Myelocytes 1.0 <=0.0 % 02/[address] HEMATOLOGY Atypical 0.0 <=0.0 % 02/[address] HEMATOLOGY Anisocyte 2+ None Seen 02/15 [facility] (02/15/19 11:09 AM) Cente r HEMATOLOGY Macrocyte 1+ None Seen 02/15 [facility] *ABN* /2019 Medical (02/15/19 11:09 AM) Cente r HEMATOLOGY Eosinophils 0.4 0.0 - 0.5 02/13 [place] # /2018 [facility] HEMATOLOGY Anisocyte 1+ None Seen 02/13 [facility] *ABN* /2018 Medical (02/13/19 5:40 AM) Center HEMATOLOGY Polychrom Slight 02/13 [facility] HEMATOLOGY Large Plt Slight 02/13 [facility] IMMUNOLOGY C-REACTIVE 96.6 <=2.9 mg/L 02/12 [facility] PROTEIN [facility] CHEM PANEL Lactic Acid 1.6 0.5 - 2.2 02/12 [facility] Lvl [facility] CHEM PANEL Lactic Acid 2.4 0.5 - 2.2 02/12 [facility] Lvl [facility] HEMATOLOGY Polychrom Slight 02/12 [facility] HEMATOLOGY Large Plt Slight 02/12 [facility] TOXICOLOGY Vanco Lvl 12.1 02/12 [facility] [address] [place] [address] TRIMETHOPRI Gram Stain Gram Stain 02/11 [facility] as M+SULFAMETH Report Performed Medical OXAZOLE:DESIRAE By: Center C:PT:ISOLAT [facility] E:ORDQN:MARIA TERESA [facility] TRIMETHOPRI Culture: Rare Proteus mirabilis 02/11 [facility] M+SULFAMETH Wound/Absces Many Enterococcus Species /2018 Medical OXAZOLE:DESIRAE s w/Gram Moderate Staphylococcus aureus Center C:PT:ISOLAT Stain Upon Supplemental Testing, This Isolate Was Found To Be E:ORDQN:MARIA TERESA 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 TRIMETHOPRI Staphylococc Staphyloco 02/11 [facility] [place] M+SULFAMETH us aureus ccus /2018 Medical OXAZOLE:DESIRAE aureus Center C:PT:ISOLAT E:ORDQN:MARIA TERESA TRIMETHOPRI Enterococcus Enterococc 02/11 [facility] [place] M+SULFAMETH Species us Species /2019 Medical OXAZOLE:DSEIRAE Center C:PT:ISOLAT E:ORDQN:MARIA TERESA TRIMETHOPRI Proteus Proteus 02/11 [facility]+SULFAMETH mirabilis mirabilis /2019 Medical OXAZOLE:DESIRAE Center C:PT:ISOLAT E:ORDQN:MARIA TERESA TOXICOLOGY Vanco Lvl 14.3 02/10 [facility] CHEM PANEL Lactic Acid 1.6 0.5 - 2.2 02/[place] [facility] CHEM PANEL Magnesium 2.1 1.8 - 2.4 02/09 [facility] HEMATOLOGY RBC Morph Normal Normal 02/09 [facility] (02/09/19 9:04 AM) [facility] HEMATOLOGY Plt Morph Normal Normal 02/09 [facility] (02/09/19 9:04 AM) [facility] PARATHYROID Ca Ion WB 1.06 1.05 - 02/09 [place] PROFILE 1. [facility] PARATHYROID Ca Norm WB 1.04 1.05 - 02/09 [facility] PROFILE . [facility] URINE AND UA Color Yellow Yellow 02/08 [facility] *NA* /2018 [facility] (02/08/19 3:55 AM) [place] URINE AND UA Turbidity Marked Clear 02/08 [facility] *ABN* [facility] (02/08/19 3:55 AM) [place] URINE AND UA Spec Grav 1.022 <=1.030 02/08 [facility] /2018 [facility] URINE AND UA pH 5.0 5.0 - 8.0 02/08 [facility] /2018 [facility] URINE AND UA Protein 100 mg/dL Negative 02/08 [facility] mg/dL [facility] URINE AND UA Glucose 500 mg/dL Negative 02/08 [facility] mg/dL [facility] URINE AND UA Ketones Negative Negative 02/08 [facility] mg/dL mg/dL [facility] URINE AND UA Bili Negative Negative 02/08 [facility] *NA* [facility] (02/08/19 3:55 AM) [place] URINE AND UA Blood Negative Negative 02/08 [facility] (02/08/19 3:55 AM) [facility] URINE AND UA <1.0 0.1 - 1.0 02/08 [facility] Urobilinogen /2018 [facility] URINE AND UA Nitrite Negative Negative 02/08 [facility] (02/08/19 3:55 AM) [facility] URINE AND UA Leuk Est Negative Negative 02/08 [facility] (02/08/19 3:55 AM) [facility] URINE AND UA Sq Epi Occasional Few /LPF 02/08 [facility] STOOL /LPF /2018 [facility] URINE AND UA WBC 13 0 - 5 02/08 [facility] STOOL /2018 [facility] URINE AND UA RBC 4 0 - 2 02/08 [facility] STOOL [facility] URINE AND UA Bacteria Occasional None [place]en 02/[place] /HPF /HPF /2018 [facility] URINE AND UA Mucus Few /LPF None Seen 02/08 [facility] STOOL /LPF [address] [place] [address] URINE AND UA Hyal Cast 5 0 - 2 02/08 [facility] STOOL /2018 [facility] URINE AND UA Gran Cast 3-5 /LPF None Seen 02/08 [place] STOOL /LPF [facility] URINE CHEM U Sodium 30 02/08 [facility] URINE CHEM U Creatinine 135.00 02/08 [facility] [address] [place] [address] Culture: 10,000 - 02/08 [facility] Urine 50,000 [facility] CFU/mL Center [facility] CARDIAC Troponin-I <0.02 0.00 - 02/08 [facility] ENZYMES 0.40 [facility] HEMATOLOGY Sed Rate 95 0 - 20 02/08 [facility] /2018 [facility] IMMUNOLOGY C-REACTIVE 81.9 <=2.9 mg/L 02/08 [place] PROTEIN [facility] PARATHYROID Ca Ion WB 1.19 1.05 - 02/08 [place] PROFILE 1. [facility] PARATHYROID Ca Norm WB 1.17 1. - 02/08 [facility] PROFILE . [facility] CHEM PANEL Osmolality 314 280 - 300 02/[address] URINE AND UA Ketones Trace Negative 02/08 [facility] STOOL mg/dL mg/dL [facility] PARATHYROID Ca Ion WB 1.08 1.05 - 02/07 [place] PROFILE . [facility] PARATHYROID Ca Norm WB 1.09 1.05 - 02/07 [facility] PROFILE . [facility] ANEMIA Vitamin B12 538 254 - 1320 02/06 [facility] STUDY Lvl /2018 [facility] ANEMIA Folate Lvl 16.9 >=3.0 02/06 [facility] STUDY ng/mL [facility] CHEM PANEL Ammonia 13.0 <=45.0 02/06 [facility] uMol/L /2018 [facility] CHEM PANEL VITAMIN B1 172.6 66.5 - 02/06 Result [facility] (THIAMINE) 200.0 Comment: This Medical WHOLE BLOOD test was Center developed and its performance characteristi cs
determ ined by [facility]. It has not been cleared or
approv ed by the Food and Drug Administratio n.
Perfor med At: BN [facility] [place]
[address], [place] [id number]<br/ >Kosta Tucker MD Ph:[phone] IMMUNOLOGY Homocyst Tot 17.3 0.0 - 15.0 02/06 [place] [facility] IMMUNOLOGY MMA Qnt 179 0 - 378 02/[address] SPECIAL Hgb A1C 8.5 <=5.6 % 02/06 [facility] CHEMISTRY /2018 [facility] CARDIAC Troponin-I 0.03 0.00 - 02/05 [facility] ENZYMES 0.40 [facility] CARDIAC Total CK 200 12 - 191 02/05 [facility] ENZYMES [address] CARDIAC CK MB 1.5 0.5 - 3.6 02/05 [facility] ENZYMES [address] CARDIAC CK MB Index 0.8 0.0 - 2.5 02/05 [facility] ENZYMES [address] CHEM PANEL B/C Ratio 16 6 - 25 02/[address] CHEM PANEL Total 6.4 6.4 - 8.4 02/05 [facility] Protein [facility] CHEM PANEL Albumin Lvl 2.2 3.5 - 5.0 02/05 [place] [facility] CHEM PANEL Globulin 4.2 2.7 - 4.2 02/[address] CHEM PANEL A/G Ratio 0.5 0.7 - 1.6 02/[address] CHEM PANEL AST 184 0 - 37 02/[address] CHEM PANEL Alk Phos 330 39 - 136 02/[address] CHEM PANEL Bili Total 0.6 0.2 - 1.3 02/[address] CHEM PANEL ALT 103 0 - 65 02/[address] CHEM PANEL Vitamin D, 6.5 30.0 - 02/05 [facility] 25-OH, Total 100.0 [facility] URINE AND UA Color Dark Yellow Yellow 02/05 [facility] STOOL *NA* /2018 [facility] (02/05/19 2:43 PM) [place] URINE AND UA Turbidity Marked Clear 02/05 [facility] STOOL *ABN* /2018 [facility] (02/05/19 2:43 PM) Center URINE AND UA Spec Grav 1.022 <=1.030 02/05 [facility] STOOL /2018 [facility] Center URINE AND UA pH 6.0 5.0 - 8.0 02/05 [facility] STOOL /2018 [facility] Center URINE AND UA Protein 100 mg/dL Negative 02/05 [facility] STOOL mg/dL /2018 [facility] URINE AND UA Glucose 500 mg/dL Negative 02/05 [facility] STOOL mg/dL /2018 [facility] Center URINE AND UA Ketones Trace Negative 02/05 [facility] STOOL mg/dL mg/dL /2018 [facility] URINE AND UA Bili Negative Negative 02/05 [facility] STOOL *NA* /2018 [facility] (02/05/19 2:43 PM) Center URINE AND UA Blood Negative Negative 02/05 [facility] (02/05/19 2:43 PM) /2018 [facility] URINE AND UA 2.0 0.1 - 1.0 02/05 [facility] Urobilinogen /2018 [facility] URINE AND UA Nitrite Negative Negative 02/05 [facility] STOOL (02/05/19 2:43 PM) /2018 [facility] URINE AND UA Leuk Est Negative Negative 02/05 [facility] (02/05/19 2:43 PM) /2018 [facility] URINE AND UA Sq Epi Occasional Few /LPF 02/05 [facility] STOOL /LPF [facility] URINE AND UA WBC 4 0 - 5 02/05 [facility] STOOL /2018 [facility] URINE AND UA RBC 2 0 - 2 02/05 [facility] /2018 [facility] URINE AND UA Bacteria Few /HPF None Seen [place] /HPF /2018 [facility] Center URINE AND UA Mucus Few /LPF None Seen 02/05 [place] STOOL /LPF /2019 [facility] URINE AND UA Uric Ac Many /HPF None Seen 02/[place] /HPF /2018 [facility] HEMATOLOGY Neutrophils 12.0 1.5 - 8.1 01/09 [place] /2019 [facility] Center HEMATOLOGY Lymphocytes 2.2 1.0 - 5.5 01/09 [place] # /2019 [facility] Center HEMATOLOGY Monocytes # 0.8 0.0 - 0.8 01/[place] /2019 [facility] HEMATOLOGY Segs 78.0 45.0 - 01/09 [place] 75.0 /2018 [facility] HEMATOLOGY Bands 0.0 0.0 - 11.0 01/09 [facility] HEMATOLOGY Lymphocytes 14.0 20.0 - 01/09 [place] 40.0 [facility] HEMATOLOGY Monocytes 5.0 2.0 - 12.0 01/09 [facility]2018 [facility] HEMATOLOGY Metamyelocyt 1.0 0.0 - 1.0 01/09 [place] [facility] HEMATOLOGY Myelocytes 2.0 <=0.0 % 01/09 [facility] HEMATOLOGY Atypical 0.0 <=0.0 % 01/09 [facility] Lymphs [facility] HEMATOLOGY NRBC 3 01/09 [facility] HEMATOLOGY Anisocyte 1+ None [facility]/09 [facility] (01/09/19 5:01 AM) [place] HEMATOLOGY Macrocyte 1+ None Seen 01/09 [facility]* [facility] (01/09/19 5:01 AM) [place] HEMATOLOGY Polychrom Moderate None Seen 01/09 [facility]* [facility] (01/09/19 5:01 AM) [place] HEMATOLOGY Large Plt slight 01/09 [facility] HEMATOLOGY WBC 15.4 3.7 - 10.4 01/09 [facility] HEMATOLOGY RBC 2.79 4.20 - 01/09 [facility] 5.40 [facility] HEMATOLOGY Hgb 9.6 12.0 - 01/09 [facility] 16.0 [facility] HEMATOLOGY Hct 29.3 36.0 - 01/09 [facility] 48.0 [facility] HEMATOLOGY MCV 104.8 80.0 - 01/09 [facility] 98.0 [facility] HEMATOLOGY MCH 34.5 27.0 - 01/09 [place] 31.0 2019 [facility] HEMATOLOGY MCHC 32.9 32.0 - 01/09 [place] 36.0 [facility] HEMATOLOGY RDW 22.7 11.5 - 01/09 [facility] 14.5 [facility] HEMATOLOGY Platelet 119 133 - 450 01/09 [facility]2018 [facility] HEMATOLOGY MPV 9.8 7.4 - 10.4 01/[address] CHEM PANEL Glucose Lvl 79 70 - 99 01/[address] CHEM PANEL BUN 27 7 - 22 01/[address] CHEM PANEL Creatinine 0.77 0.50 - 01/07 [facility] Lvl 1.40 /2018 [facility] CHEM PANEL Sodium Lvl 142 135 - 145 01/07 [facility] CHEM PANEL Potassium 4.2 3.5 - 5.1 01/07 [facility] CHEM PANEL Chloride Lvl 106 95 - 109 01/07 [facility] CHEM PANEL CO2 28 24 - 32 01/07 [facility] CHEM PANEL AGAP 12.2 10.0 - 08 [place] 20.0 [facility] CHEM PANEL Calcium Lvl 8.6 8.5 - 10.5 01/07 [facility] CHEM PANEL eGFR 78 01/07 [facility] Comment: The Medical eGFR is Center [...] PANEL Magnesium 2.1 1.8 - 2.4 01/07 [facility] CHEM PANEL Phosphorus 3.7 2.5 - 4.5 01/07 [facility] HEMATOLOGY Neutrophils 14.2 1.5 - 8.1 01/07 [place] [facility] HEMATOLOGY Lymphocytes 6.1 1.0 - 5.5 01/07 [place] # /2018 [facility] HEMATOLOGY Monocytes # 0.4 0.0 - 0.8 01/07 [facility] HEMATOLOGY Basophils # 0.2 0.0 - 0.2 01/07 [facility] HEMATOLOGY Segs 67.0 45.0 - 01/07 [place] 75.0 [facility] HEMATOLOGY Bands 0.0 0.0 - 11.0 01/07 [facility] HEMATOLOGY Lymphocytes 29.0 20.0 - 01/07 [facility] 40.0 [facility] HEMATOLOGY Monocytes 2.0 2.0 - 12.0 01/07 [facility]2018 [facility] HEMATOLOGY Basophils 1.0 0.0 - 1.0 01/07 [facility] [address] [place] [address] HEMATOLOGY Myelocytes 1.0 <=0.0 % 01/07 [facility] HEMATOLOGY Atypical 0.0 <=0.0 % 01/07 [facility] Lymphs [facility] HEMATOLOGY NRBC 2 01/07 [facility] HEMATOLOGY Plt Morph Normal Normal 01/07 [facility] (01/07/19 5:31 AM) /2018 [facility] HEMATOLOGY Anisocyte 1+ None Seen 01/07 [facility] (01/07/19 5:31 AM) [place] HEMATOLOGY Macrocyte 1+ None Seen 01/07 [facility] (01/07/19 5:31 AM) [place] HEMATOLOGY Polychrom Moderate None Seen 01/07 [facility] (01/07/19 5:31 AM) [place] HEMATOLOGY WBC 21.2 3.7 - 10.4 01/07 [facility] HEMATOLOGY RBC 2.83 4.20 - 01/07 [facility] 5.40 [facility] HEMATOLOGY Hgb 9.6 12.0 - 01/07 [facility] 16.0 [facility] HEMATOLOGY Hct 29.6 36.0 - 01/07 [facility] 48.0 [facility] HEMATOLOGY MCV 104.5 80.0 - 01/07 [facility] 98.0 [facility] HEMATOLOGY MCH 33.9 27.0 - 01/07 [facility] 31.0 2019 [facility] HEMATOLOGY MCHC 32.4 32.0 - 01/07 [facility] 36.0 2019 [facility] HEMATOLOGY RDW 19.9 11.5 - 01/07 [facility] 14.5 [facility] HEMATOLOGY Platelet 139 133 - 450 01/07 [facility]2018 [facility] HEMATOLOGY MPV 10.6 7.4 - 10.4 01/[address] CHEM PANEL Glucose Lvl 130 70 - 99 01/[address] CHEM PANEL BUN 27 7 - 22 01/06 [facility]2018 [facility] CHEM PANEL Creatinine 1.34 0.50 - 01/06 [place] Lvl 1.40 [facility] CHEM PANEL Sodium Lvl 145 135 - 145 01/06 [facility] CHEM PANEL Potassium 4.0 3.5 - 5.1 01/06 [facility] Lvl /2018 [facility] CHEM PANEL Chloride Lvl 106 95 - 109 01/06 [facility] CHEM PANEL CO2 27 24 - 32 01/06 [facility] CHEM PANEL Calcium Lvl 8.3 8.5 - 10.5 01/06 [place] [facility] CHEM PANEL eGFR 40 01/06 [facility] Comment: The Medical eGFR is Center [...] AGAP 16.0 10.0 - 08 [place] 20.0 [facility] HEMATOLOGY Segs 84.9 45.0 - 08 [facility] 75.0 [facility] HEMATOLOGY Lymphocytes 11.4 20.0 - 08 [place] 40.0 [facility] HEMATOLOGY Monocytes 2.9 2.0 - 12.0 01/06 [facility] HEMATOLOGY Eosinophils 0.2 0.0 - 4.0 01/06 [place] /2018 [facility] HEMATOLOGY Basophils 0.6 0.0 - 1.0 01/06 [facility] HEMATOLOGY Neutrophils 12.0 1.5 - 8.1 01/06 [place] # /2018 [facility] HEMATOLOGY Lymphocytes 1.6 1.0 - 5.5 01/06 [facility] s # /2019 [facility] HEMATOLOGY Monocytes # 0.4 0.0 - 0.8 01/06 [facility] s /2019 [facility] HEMATOLOGY Basophils # 0.1 0.0 - 0.2 01/06 [facility] s [facility] HEMATOLOGY Macrocyte 1+ None Seen 01/06 [facility] *ABN* /2018 Medical (01/06/19 2:41 PM) [place] HEMATOLOGY Polychrom slight 01/06 [facility] /2018 [facility] HEMATOLOGY WBC 14.1 3.7 - 10.4 01/06 [facility] /2019 [facility] HEMATOLOGY RBC 2.86 4.20 - 01/06 [facility] 5.40 /2019 [facility] HEMATOLOGY Hgb 9.7 12.0 - 01/06 [facility] 16.0 2019 [facility] HEMATOLOGY Hct 29.5 36.0 - 01/06 [facility] 48.0 /2019 [facility] HEMATOLOGY MCV 103.3 80.0 - 01/06 [facility] 98.0 /2019 [facility] HEMATOLOGY MCH 33.8 27.0 - 01/06 [facility] 31.0 /2019 [facility] HEMATOLOGY MCHC 32.7 32.0 - 01/06 [facility] 36.0 /2019 [facility] HEMATOLOGY RDW 20.1 11.5 - 01/06 [facility] 14.5 [facility] HEMATOLOGY Platelet 119 133 - 450 01/06 [facility] /2018 [facility] HEMATOLOGY MPV 10.2 7.4 - 10.4 01/[address] CARDIAC BNP 98 <=100 01/04 [facility] ENZYMES pg/mL [facility] ELECTROLYTE AGAP 12.0 10.0 - 08 [facility] 20.0 [facility] ELECTROLYTE Glucose Lvl 83 70 - 99 01/04 [facility] S /2019 [facility] ELECTROLYTE BUN 23 7 - 22 01/04 [facility] S /2019 [facility] ELECTROLYTE Creatinine 0.88 0.50 - 08 [facility] Lvl 1.40 [facility] ELECTROLYTE Sodium Lvl 140 135 - 145 01/04 [facility] S /2018 [facility] ELECTROLYTE Potassium 4.0 3.5 - 5.1 01/04 [facility] /2019 [facility] ELECTROLYTE Chloride Lvl 107 95 - 109 01/04 [facility] S /2019 [facility] ELECTROLYTE CO2 25 24 - 32 08/ [facility] /2019 [facility] ELECTROLYTE Calcium Lvl 8.5 8.5 - 10.5 01/04 [place] [facility] ELECTROLYTE eGFR 66 01/04 Result [facility] Comment: The Medical eGFR is Center [...] HEMATOLOGY Eosinophils 0.2 0.0 - 0.5 01/04 [facility] s # [facility] HEMATOLOGY Bands 3.0 0.0 - 11.0 01/[address] HEMATOLOGY Eosinophils 1.0 0.0 - 4.0 01/04 [facility] [address] [place] [address] HEMATOLOGY Myelocytes 1.0 <=0.0 % 01/[address] HEMATOLOGY Atypical 0.0 <=0.0 % 01/04 [facility] Lymphs [address] [place] [address] HEMATOLOGY NRBC 9 01/[address] HEMATOLOGY Plt Morph Normal Normal 01/04 [facility] (01/04/19 12:50 PM) [facility] HEMATOLOGY Anisocyte 1+ None Seen 01/04 [facility] *ABN* [facility] (01/04/19 12:50 PM) [place] HEMATOLOGY Eosinophils 0.1 0.0 - 4.0 01/01 [facility] [address] [place] [address] HEMATOLOGY Basophils 0.7 0.0 - 1.0 01/[address] HEMATOLOGY Basophils # 0.2 0.0 - 0.2 01/[address] PARATHYROID Ca Ion WB 1.08 1.05 - 01/01 [place] PROFILE 1. [facility] PARATHYROID Ca Norm WB 1.04 1.05 - 01/01 [facility] PROFILE 06.25 [facility] HEMATOLOGY Metamyelocyt 3.0 0.0 - 1.0 12/31 [place] [facility] CHEM PANEL Magnesium 2.1 1.8 - 2.4 12/30 [facility] CHEM PANEL Phosphorus 2.7 2.5 - 4.5 12/[address] HEMATOLOGY Fibrinogen 463 230 - 510 12/30 [facility] HEMATOLOGY Eosinophils 0.1 0.0 - 0.5 12/[place] [facility] PARATHYROID Ca Ion WB 1.08 1.05 - 12/30 [facility] PROFILE . [facility] PARATHYROID Ca Norm WB 1.10 1.05 - 12/30 [facility] 06.25 [facility] CARDIAC Troponin-I 0.09 0.00 - 12/29 [facility] ENZYMES 0. [facility] CHEM PANEL Magnesium 2.0 1.8 - 2.4 12/29 [facility] CHEM PANEL Phosphorus 2.4 2.5 - 4.5 12/29 [facility] HEMATOLOGY Plt Morph Normal Normal 12/29 [facility] (12/29/18 12:04 AM) [facility] HEMATOLOGY INR 1.02 0.85 - 12/29 [facility] 06.17 [facility] HEMATOLOGY PT 13.2 12.0 - 12/29 [facility] 14.7 [facility] HEMATOLOGY PTT 31.0 22.9 - 12/29 [place] 35.8 [facility] HEMATOLOGY Fibrinogen 424 230 - 510 12/29 [facility] PARATHYROID Ca Ion WB 1.10 1.05 - 12/29 [facility] PROFILE . [facility] PARATHYROID Ca Norm WB 1.11 1.05 - 12/29 [facility] . [facility] CARDIAC Troponin-I 0.11 0.00 - 12/28 [place] ENZYMES 0. [facility] CHEM PANEL Total 4.7 6.4 - 8.4 12/28 [facility] Protein [facility] CHEM PANEL Albumin Lvl 2.8 3.5 - 5.0 12/28 [place] [facility] CHEM PANEL ALT 36 0 - 65 12/28 [facility] CHEM PANEL AST 18 0 - 37 12/28 [facility] CHEM PANEL Alk Phos 73 39 - 136 12/[address] CHEM PANEL Bili Total 0.7 0.2 - 1.3 12/28 [facility]2018 [facility] CHEM PANEL Bili Direct 0.2 0.0 - 0.3 12/28 [facility] s [facility] CHEM PANEL Bili 0.5 0.0 - 1.0 12/28 [facility] CHEM PANEL Globulin 1.9 2.7 - 4.2 12/28 [facility] CHEM PANEL A/G Ratio 1.5 0.7 - 1.6 12/28 [facility] HEMATOLOGY Metamyelocyt 1.0 0.0 - 1.0 12/28 [facility] as es [facility] HEMATOLOGY INR 1.13 0.85 - 12/28 [facility] 1.17 [facility] HEMATOLOGY PT 14.3 12.0 - 12/28 [facility] 14.7 [facility] HEMATOLOGY PTT 35.5 22.9 - 12/28 [place] 35.8 [facility] SPECIAL Hgb A1C 11.1 <=5.6 % 12/28 [facility] CHEMISTRY [facility] [facility] URINE AND Occult Bld Negative Negative 12/27 [facility] STOOL Stl (12/27/18 6:12 AM) /2018 [facility] CARDIAC Troponin-I 0.06 0.00 - 12/27 [facility] ENZYMES 0.40 [facility] CHEM PANEL Total 4.7 6.4 - 8.4 12/27 [facility] Protein [facility] CHEM PANEL Albumin Lvl 3.5 3.5 - 5.0 12/27 [facility] s [facility] CHEM PANEL ALT 30 0 - 65 12/27 [facility] [address] [place] [address] CHEM PANEL AST 11 0 - 37 12/[address] CHEM PANEL Alk Phos 55 39 - 136 12/[address] CHEM PANEL Bili Total 0.5 0.2 - 1.3 12/[address] CHEM PANEL Bili Direct 0.1 0.0 - 0.3 12/27 [facility] [address] [place] [address] CHEM PANEL Bili 0.4 0.0 - 1.0 12/27 [facility] Indirect [address] [place] [address] CHEM PANEL Globulin 1.2 2.7 - 4.2 12/27 [facility] CHEM PANEL A/G Ratio 2.9 0.7 - 1.6 12/27 [facility] HEMATOLOGY PT 15.8 12.0 - 12/27 [place] 14.7 [facility] HEMATOLOGY INR 1.29 0.85 - 12/27 [place] 1.17 [facility] HEMATOLOGY PTT 37.6 22.9 - 12/27 [place] 35.8 [facility] HEMATOLOGY Fibrinogen 241 230 - 510 12/27 [place] Lvl /2018 [facility] CHEM PANEL Total 5.1 6.4 - 8.4 12/26 [facility] Protein [facility] CHEM PANEL Albumin Lvl 3.1 3.5 - 5.0 12/26 [facility] s [facility] CHEM PANEL Globulin 2.0 2.7 - 4.2 12/26 [facility]2018 [facility] CHEM PANEL A/G Ratio 1.6 0.7 - 1.6 12/[address] CHEM PANEL ALT 51 0 - 65 12/26 [facility]2018 [facility] CHEM PANEL AST 16 0 - 37 12/26 [facility]2018 [facility] CHEM PANEL Alk Phos 88 39 - 136 12/[address] CHEM PANEL Bili Total 0.4 0.2 - 1.3 12/26 [facility]2018 [facility] CHEM PANEL Bili Direct 0.2 0.0 - 0.3 12/26 [facility]2018 [facility] CHEM PANEL Bili 0.2 0.0 - 1.0 12/26 [facility] Indirect [facility] URINE AND UA Color Light Yellow Yellow 12/25 [facility] STOOL *NA* /2018 [facility] (12/25/18 2:16 PM) [place] URINE AND UA Turbidity Slight Clear 12/25 [facility] STOOL *ABN* /2018 [facility] (12/25/18 2:16 PM) [place] URINE AND UA Spec Grav 1.013 <=1.030 12/25 [facility] STOOL [facility] URINE AND UA pH 5.0 5.0 - 8.0 12/25 [facility] STOOL [facility] URINE AND UA Protein Negative Negative 12/25 [facility] STOOL mg/dL mg/dL [facility] URINE AND UA Glucose 500 mg/dL Negative 12/25 [facility] STOOL mg/dL /2018 [facility] URINE AND UA Ketones Trace Negative 12/25 [facility] STOOL mg/dL mg/dL /2018 [facility] URINE AND UA Bili Negative Negative 12/25 [facility] STOOL *NA* Medical (12/25/18 2:16 PM) Center URINE AND UA Blood Negative Negative 12/25 [facility] (12/25/18 2:16 PM) [facility] URINE AND UA <1.0 0.1 - 1.0 12/25 [facility] Urobilinogen /2018 [facility] URINE AND UA Nitrite Negative Negative 12/25 [facility] (12/25/18 2:16 PM) [facility] URINE AND UA Leuk Est Negative Negative 12/25 [facility] (12/25/18 2:16 PM) /2018 [facility] URINE AND UA WBC 4 0 - 5 12/25 [facility] /2018 [facility] URINE AND UA RBC 1 0 - [address] [facility] /2018 [facility] URINE AND UA Sq Epi None Seen 12/25 [facility] /2018 [facility] CHEM PANEL Lactic Acid 1.8 0.5 - 2.2 12/25 [facility] HEMATOLOGY Thrombin 17.7 15.0 - 12/25 [facility] Time 21.2 [facility] HEMATOLOGY D-Dimer 2.84 12/25 [facility] /2018 [facility] BACTERIAL - MRSA by PCR Negative 12/25 [facility] (12/25/18 12:22 AM) /2018 [facility] CHEM PANEL Lactic Acid 2.3 0.5 - 2.2 12/25 [facility] DRUG SCREEN U [place]ph [place] Negative Negative 12[place] *[place] (12/25/18 12:22 AM) Cente r DRUG SCREEN U [place] Negative Negative 12[place] *[place]* Medical (12/25/18 12:22 AM) Cente r DRUG SCREEN U Benzodiaz Positive Negative 12/25 [facility] as Scr *ABN* Medical (12/25/18 12:22 AM) Cente r DRUG SCREEN U Cocaine Negative Negative 12/25 [place] Scr *NA* Medical (12/25/18 12:22 AM) Cente r DRUG SCREEN U Cannab Sc[place] Negative Negative 12/25 [place] *NA* Medical (12/25/18 12:22 AM) Cente r DRUG SCREEN U Opiate Sc[place] Positive Negative 12/25 [place] *ABN Medical (12/25/18 12:22 AM) Cente r DRUG SCREEN U Negative Negative 12/25 [facility] Phencyclidin *NA* Medical e Scr (12/25/18 12:22 AM) Cente r DRUG SCREEN UDS Note See Note 12/25 [facility] (12/25/18 12:22 AM) Medic al Center HEMATOLOGY Heparin Negative 7 Negative 12/25 Result [facility] Ab(SRIDEVI) (12/25/18 12:22 AM) Comment: Th is Medical assay detects Center heparin antibodies of IgG isotype. Antibodies of other isotypes have been reported to cause heparin-induc ed thrombocytope davey. Therefore, if there is a strong clinical suspicion of HIT, additional study with a serotonin release assay is recommented. HEMATOLOGY Pat Od Value 0.215 12/25 [facility] HEMATOLOGY Pos CO Value 0.400 12/25 [facility] URINE AND UA Color Veronique Yellow 12/25 [facility] STOOL *ABN* [facility] (12/25/18 12:22 AM) Cente r URINE AND UA Turbidity Slight Clear 12/25 [facility] STOOL *ABN* [facility] (12/25/18 12:22 AM) Cente r URINE AND UA Spec Grav 1.029 <=1.030 12/25 [facility] URINE AND UA pH 5.0 5.0 - 8.0 12/25 [facility] /2018 [facility] URINE AND UA Protein 100 mg/dL Negative 12/25 [facility] STOOL mg/dL /2018 [facility] URINE AND UA Glucose Negative Negative 12/25 [facility] STOOL mg/dL mg/dL /2018 [facility] URINE AND UA Ketones Trace Negative 12/25 [facility] STOOL mg/dL mg/dL /2018 [facility] URINE AND UA Bili Negative Negative 12/25 [facility] STOOL *NA* /2018 Medical (12/25/18 12:22 AM) Cente r URINE AND UA Blood Moderate Negative 12/25 [facility] STOOL *ABN* [facility] (12/25/18 12:22 AM) Cente r URINE AND UA 4.0 0.1 - 1.0 12/25 [facility] STOOL Urobilinogen /2018 [facility] URINE AND UA Nitrite Negative Negative 12/25 [facility] (12/25/18 12:22 AM) [facility] URINE AND UA Leuk Est Negative Negative 12/25 [facility] STOOL (12/25/18 12:22 AM) [facility] URINE AND UA Sq Epi Few /LPF Few /LPF 12/25 [facility] STOOL /2018 [facility] URINE AND UA WBC 3 0 - 5 12/25 [facility] /2018 [facility] URINE AND UA RBC 37 0 - 2 12/25 [facility] /2018 [facility] URINE AND UA Bacteria Occasional None Seen 12/25 [place] /HPF /HPF [facility] URINE AND UA Mucus Few /LPF None Seen 12/25 [facility] STOOL /LPF /2018 [facility] URINE AND UA Renal Epi 23 <=0 /LPF 12/25 [facility] /2018 [facility] URINE AND UA Hyal Cast 1 0 - 2 12/25 [facility] /[address] [place] [address] VANCOMYCIN: Gram Stain Gram Stain 12/25 [place] SUSC:PT:ISO Report Performed Medical LATE:ORDQN: By: [facility] [place] VANCOMYCIN: Culture: Moderate Staphylococ cus aureus , Upon Supplemental Testing, This Isolate Was Found To Be 12/25 [facility] SUSC:PT:ISO 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 Medical LATE:ORDQN: w/Gram Stain . [facility] Normal Respiratory Era Isolated VANCOMYCIN: Staphylococc Staphyloco 12/25 [facility] SUSC:PT:ISO us aureus ccus Medical LATE:ORDQN: aureus [facility] BLOOD BANK ABO/Rh O POS 12/24 [facility] RESULTS [facility] BLOOD BANK Antibody Negative 5 12/24 Result [facility] RESULTS Scrn (12/24/18 6:54 PM) Comment: Medic al 12/24/2018 Center 20:18 [id number]
Patient has antibodies. Allow extra time for additional crossmatches. CARDIAC Total CK 62 12 - 191 12/24 [facility] ENZYMES [facility] CHEM PANEL Ammonia 27.0 <=45.0 12/24 [facility] uMol/L /2018 [facility] CHEM PANEL Lactic Acid 5.0 0.5 - 2.2 12/24 Result [place] [facility] Lvl Comment: Medical Critical Center Result(s) called to Lisa Acharya at 12/24/2018 20:19 by fns. Read back OK. CHEM PANEL Procalcitoni 11.80 0.00 - 12/24 Result [facility] n Lvl 0. Comment: Medical CRITICAL [...] CHEM PANEL Creatinine 0.79 0.50 - 11/29 [facility] Lvl 1.40 [facility] CHEM PANEL Glucose Lvl 104 70 - 99 11/29 [facility] CHEM PANEL Potassium 4.2 3.5 - 5.1 11/29 [facility] CHEM PANEL BUN 19 7 - 22 11/29 [facility] CHEM PANEL Calcium Lvl 9.3 8.5 - 10.5 11/29 [facility] CHEM PANEL Sodium Lvl 140 135 - 145 11/29 [facility] CHEM PANEL CO2 30 24 - 32 11/29 [facility] CHEM PANEL Chloride Lvl 104 95 - 109 11/29 [facility] s [facility] CHEM PANEL AGAP 10.2 10.0 - 11/29 [facility] 20.0 [facility] URINE AND UA WBC 0-2 /HPF None Seen 11/29 [facility] STOOL /HPF /2018 [facility] URINE AND UA Bacteria Few /HPF None Seen 11/29 [facility] STOOL /HPF /2018 [facility] URINE AND UA Sq Epi Moderate Few /LPF 11/29 [facility] STOOL /LPF /2018 [facility] URINE AND UA RBC None Seen 0 - 2 11/29 [facility] (11/29/18 10:09 AM) [facility] URINE AND UA Mucus Few /LPF None Seen 11/29 [facility] STOOL /LPF /2018 [facility] URINE AND UA CaOx Jagruti Moderate None Seen 11/29 [place] STOOL /HPF /HPF /2018 [facility] URINE AND UA 0.2 0.1 - 1.0 11/29 [facility] Urobilinogen /2018 [facility] URINE AND UA Blood Negative Negative 11/29 [facility] (11/29/18 10:09 AM) [facility] URINE AND UA Nitrite Negative Negative 11/29 [facility] (11/29/18 10:09 AM) [facility] URINE AND UA Bili Small Negative 11/29 [facility] *ABN* /2018 [facility] (11/29/18 10:09 AM) [place] URINE AND UA Leuk Est Negative Negative 11/29 [facility] (11/29/18 10:09 AM) /2018 [facility] URINE AND UA Protein 100 mg/dL Negative 11/29 [facility] mg/dL /2018 [facility] URINE AND UA pH 5.5 5.0 - 8.0 11/29 [facility] /2018 [facility] URINE AND UA Ketones Negative Negative 11/29 [facility] *NA* /2018 [facility] (11/29/18 10:09 AM) [place] URINE AND UA Glucose Negative Negative 11/29 [facility] (11/29/18 10:09 AM) [facility] URINE AND UA Color Yellow Yellow 11/29 [facility] *NA* /2018 [facility] (11/29/18 10:09 AM) [place] URINE AND UA Turbidity Slight Cloudy Clear 11/29 [facility] (11/29/18 10:09 AM) [facility] URINE AND UA Spec Grav >=1.030 <=1.030 11/29 [facility] *ABN* /2018 [facility] (11/29/18 10:09 AM) [place] HEMATOLOGY MPV 10.6 7.4 - 10.4 09/23 [place] /2018 [facility] HEMATOLOGY MCV 91.5 80.0 - 09/23 [place] 98.0 [facility] HEMATOLOGY Hct 42.9 36.0 - 09/23 [facility] [place] 48.0 [facility] HEMATOLOGY MCH 31.0 27.0 - 09/23 31.0 [facility] HEMATOLOGY RDW 14.1 11.5 - 09/23 14.5 [facility] HEMATOLOGY MCHC 33.8 32.0 - 09/23 36.0 [facility] HEMATOLOGY Platelet 128 133 - 450 09/23 2018 [facility] HEMATOLOGY Hgb 14.5 12.0 - 09/23 16.0 [facility] HEMATOLOGY WBC 10.8 3.7 - 10.4 09/23 [facility] HEMATOLOGY RBC 4.69 4.20 - 09/23 [place] 5.40 [facility] HEMATOLOGY Eosinophils 0.1 0.0 - 0.5 09/23 [facility] HEMATOLOGY Segs 70.7 45.0 - 09/23 [facility] 75.0 [facility] HEMATOLOGY Lymphocytes 21.8 20.0 - 09/23 [facility] 40.0 [facility] HEMATOLOGY Lymphocytes 2.4 1.0 - 5.5 09/23 [facility] HEMATOLOGY Neutrophils 7.6 1.5 - 8.1 09/23 [facility] HEMATOLOGY Monocytes # 0.7 0.0 - 0.8 09/23 [facility] HEMATOLOGY Monocytes 6.7 2.0 - 12.0 09/23 2018 [facility] HEMATOLOGY Basophils 0.3 0.0 - 1.0 09/23 2018 [facility] HEMATOLOGY Eosinophils 0.5 0.0 - 4.0 09/23 [facility] CHEM PANEL Magnesium 2.2 1.8 - 2.4 09/23 [facility] Lvl [facility] CHEM PANEL Phosphorus 3.0 2.5 - 4.5 09/23 [facility]2018 [facility] CHEM PANEL eGFR 69 09/23 Result [...] PANEL CO2 28 24 - 32 09/23 [facility] CHEM PANEL Sodium Lvl 141 135 - 145 09/23 [facility] CHEM PANEL Potassium 3.8 3.5 - 5.1 09/23 [facility] l [facility] CHEM PANEL Chloride Lvl 107 95 - 109 09/23 [facility] CHEM PANEL AGAP 9.8 10.0 - 09/23 20.0 [facility] CHEM PANEL Calcium Lvl 8.1 8.5 - 10.5 09/23 [facility] CHEM PANEL BUN 23 7 - 22 09/23 [facility] CHEM PANEL Creatinine 0.86 0.50 - 09/23 [place] Lvl 1.40 [facility] CHEM PANEL Glucose Lvl 43 70 - 99 09/23 Result Comment: Medical Critical Center Result(s) called to Mony Figueroa at 09/23/2018 08:35 by . Read back OK.
Reche cked HEMATOLOGY Hgb 14.6 12.0 - 09/23 16.0 [facility] HEMATOLOGY Hct 44.7 36.0 - 09/23 48.0 [facility] HEMATOLOGY RBC 4.85 4.20 - 09/23 5.40 [facility] HEMATOLOGY WBC 14.1 3.7 - 10.4 09/23 [facility] HEMATOLOGY MPV 10.9 7.4 - 10.4 09/23 [facility] HEMATOLOGY RDW 14.2 11.5 - 09/23 14.5 [facility] HEMATOLOGY Platelet 114 133 - 450 09/23 [facility] HEMATOLOGY MCV 92.2 80.0 - 09/23 [place] 98.0 [facility] HEMATOLOGY MCH 30.1 27.0 - 09/23 [facility] 31.0 [facility] HEMATOLOGY MCHC 32.6 32.0 - 09/23 [facility] 36.0 [facility] PARATHYROID Ca Norm WB 1.05 1.05 - 09/23 [facility] PROFILE 1. [facility] PARATHYROID Ca Ion WB 1.00 1.05 - 09/23 [facility] PROFILE 1. [facility] CHEM PANEL Bili Total 0.6 0.2 - 1.3 09/22 [facility] CHEM PANEL AST 35 0 - 37 09/22 [facility] CHEM PANEL Alk Phos 95 39 - 136 09/22 [facility] CHEM PANEL ALT 47 0 - 65 09/22 [facility] CHEM PANEL eGFR 52 09/22 [facility] Comment: The Medical eGFR is Center [...] Albumin Lvl 2.3 3.5 - 5.0 09/22 [facility] CHEM PANEL Total 7.1 6.4 - 8.4 09/22 [facility] Protein [facility] CHEM PANEL CO2 26 24 - 32 09/22 [facility]2018 [facility] CHEM PANEL Calcium Lvl 8.1 8.5 - 10.5 09/22 [facility] CHEM PANEL Chloride Lvl 102 95 - 109 09/22 [facility] CHEM PANEL Potassium 4.3 3.5 - 5.1 09/22 [facility] Lvl [facility] CHEM PANEL Sodium Lvl 135 135 - 145 09/22 [facility] CHEM PANEL Creatinine 1.07 0.50 - 09/22 [place] Lvl 1.40 /2018 [facility] CHEM PANEL Glucose Lvl 272 70 - 99 09/22 [facility] CHEM PANEL BUN 29 7 - 22 09/22 2018 [facility] CHEM PANEL Globulin 4.8 2.7 - 4.2 09/22 2018 [facility] CHEM PANEL A/G Ratio 0.5 0.7 - 1.6 09/22 [facility] CHEM PANEL B/C Ratio 27 6 - 25 09/22 2018 [facility] CHEM PANEL AGAP 11.3 10.0 - 09/22 [place] 20.0 [facility] HEMATOLOGY Monocytes 6.5 2.0 - 12.0 09/22 [facility] HEMATOLOGY Eosinophils 0.1 0.0 - 4.0 09/22 [facility] HEMATOLOGY Basophils 0.2 0.0 - 1.0 09/22 [facility] HEMATOLOGY Segs 73.8 45.0 - 09/22 [place] 75.0 [facility] HEMATOLOGY Lymphocytes 19.4 20.0 - 09/22 [place] 40.0 [facility] HEMATOLOGY Neutrophils 6.0 1.5 - 8.1 09/22 [place] # /2018 [facility] HEMATOLOGY Lymphocytes 1.6 1.0 - 5.5 09/22 [place] # /2018 [facility] HEMATOLOGY Monocytes # 0.5 0.0 - 0.8 09/22 [place] [facility] HEMATOLOGY MPV 11.3 7.4 - 10.4 09/22 [facility] HEMATOLOGY MCHC 33.1 32.0 - 09/22 [place] 36.0 2019 [facility] HEMATOLOGY RDW 14.0 11.5 - 09/22 [place] 14.5 [facility] HEMATOLOGY Platelet 106 133 - 450 09/22 [facility] HEMATOLOGY MCV 93.1 80.0 - 09/22 [place] 98.0 [facility] HEMATOLOGY Hct 44.2 36.0 - 09/22 [place] 48.0 2019 [facility] HEMATOLOGY MCH 30.8 27.0 - 09/22 [place] 31.0 2019 [facility] HEMATOLOGY RBC 4.74 4.20 - 09/22 [facility] [place] 5.40 [facility] HEMATOLOGY WBC 8.1 3.7 - 10.4 09/22 [facility] HEMATOLOGY Hgb 14.6 12.0 - 09/22 16. [facility] CHEM PANEL Phosphorus 3.3 2.5 - 4.5 09/18 [facility] CHEM PANEL Magnesium 2.0 1.8 - 2.4 09/18 [facility] CHEM PANEL eGFR 70 09/18 [facility] Comment: The Medical eGFR is Center [...] Calcium Lvl 8.7 8.5 - 10.5 09/18 [facility] CHEM PANEL Creatinine 0.84 0.50 - 09/18 [facility] Lvl 1.40 [facility] CHEM PANEL Sodium Lvl 142 135 - 145 09/18 [facility] CHEM PANEL BUN 32 7 - 22 09/18 [facility] CHEM PANEL Chloride Lvl 106 95 - 109 09/18 [facility] s [facility] CHEM PANEL CO2 32 24 - 32 09/18 2018 [facility] CHEM PANEL Potassium 3.9 3.5 - 5.1 09/18 [facility] CHEM PANEL Glucose Lvl 107 70 - 99 09/18 2018 [facility] CHEM PANEL AGAP 7.9 10.0 - 09/18 20. [facility] HEMATOLOGY Monocytes # 0.7 0.0 - 0.8 09/[place] /[place] [facility] HEMATOLOGY Lymphocytes 1.7 1.0 - 5.5 09/18 [place] # /2018 [facility] Center HEMATOLOGY Neutrophils 6.0 1.5 - 8.1 09/18 [facility] HEMATOLOGY Basophils 0.1 0.0 - 1.0 09/18 [facility] HEMATOLOGY Monocytes 8.5 2.0 - 12.0 09/18 [facility] HEMATOLOGY Lymphocytes 20.3 20.0 - 09/18 [place] 40.0 [facility] HEMATOLOGY Segs 71.1 45.0 - 09/18 [place] 75.0 [facility] HEMATOLOGY MCHC 33.8 32.0 - 09/18 [place] 36.0 [facility] HEMATOLOGY RDW 14.1 11.5 - 09/18 [place] 14.5 [facility] HEMATOLOGY MCH 31.2 27.0 - 09/18 [place] 31.0 [facility] HEMATOLOGY MCV 92.2 80.0 - 09/18 [place] 98.0 [facility] HEMATOLOGY Hct 44.7 36.0 - 09/18 [place] 48.0 2019 [facility] HEMATOLOGY RBC 4.85 4.20 - 09/18 [place] 5.40 [facility] HEMATOLOGY WBC 8.5 3.7 - 10.4 09/18 [facility] HEMATOLOGY Hgb 15.1 12.0 - 09/18 [place] 16.0 [facility] HEMATOLOGY MPV 11.8 7.4 - 10.4 09/18 [facility] HEMATOLOGY Platelet 81 133 - 450 09/18 [facility] PARATHYROID Ca Ion WB 1.09 1.05 - 09/18 [place] PROFILE 1. [facility] PARATHYROID Ca Norm WB 1.09 1.05 - 09/18 [facility] PROFILE . [facility] CHEM PANEL Magnesium 2.0 1.8 - 2.4 09/17 [facility] Lvl [facility] CHEM PANEL Calcium Lvl 8.6 8.5 - 10.5 09/17 [place] [facility] CHEM PANEL AGAP 6.4 10.0 - 09/17 [place] 20.0 [facility] CHEM PANEL eGFR 70 09/17 [facility] Comment: The Medical eGFR is Center [...] PANEL Potassium 3.4 3.5 - 5.1 09/17 [facility] Lvl [facility] CHEM PANEL Sodium Lvl 142 135 - 145 09/17 [facility] CHEM PANEL Chloride Lvl 104 95 - 109 09/17 [place] [facility] CHEM PANEL Creatinine 0.84 0.50 - 09/17 [facility] Lvl 1.40 [facility] CHEM PANEL CO2 35 24 - 32 09/17 [facility]2018 [facility] CHEM PANEL Glucose Lvl 112 70 - 99 09/17 [facility]2018 [facility] CHEM PANEL BUN 37 7 - 22 09/17 2018 [facility] CHEM PANEL Phosphorus 2.6 2.5 - 4.5 09/17 [facility] HEMATOLOGY Platelet 71 133 - 450 09/17 [facility] HEMATOLOGY MCHC 33.1 32.0 - 09/17 [place] 36.0 [facility] HEMATOLOGY MPV 10.7 7.4 - 10.4 09/17 [facility] HEMATOLOGY RDW 14.1 11.5 - 09/17 [place] 14.5 [facility] HEMATOLOGY MCH 30.4 27.0 - 09/17 [place] 31.0 [facility] HEMATOLOGY WBC 9.7 3.7 - 10.4 09/17 [facility]2018 [facility] HEMATOLOGY MCV 92.0 80.0 - 09/17 [place] 98.0 [facility] HEMATOLOGY Hct 44.7 36.0 - 09/17 [place] 48.0 [facility] HEMATOLOGY RBC 4.86 4.20 - 09/17 [place] 5.40 /2018 [facility] HEMATOLOGY Hgb 14.8 12.0 - 09/17 [place] 16.0 [facility] HEMATOLOGY Lymphocytes 1.4 1.0 - 5.5 09/17 [facility] # /2018 [facility] HEMATOLOGY Neutrophils 7.6 1.5 - 8.1 09/17 [facility] s # /2018 [facility] HEMATOLOGY Monocytes 7.0 2.0 - 12.0 09/17 [facility] HEMATOLOGY Basophils 0.5 0.0 - 1.0 09/17 [facility] HEMATOLOGY Lymphocytes 14.4 20.0 - 09/17 [place] 40.0 [facility] HEMATOLOGY Monocytes # 0.7 0.0 - 0.8 09/17 [facility] s /2018 [facility] HEMATOLOGY Segs 78.1 45.0 - 09/17 [facility] 75.0 [facility] PARATHYROID Ca Ion WB 1.11 1.05 - 09/17 [facility] PROFILE 1. [facility] PARATHYROID Ca Norm WB 1.14 1.05 - 09/17 [facility] PROFILE . [facility] CHEM PANEL Magnesium 2.1 1.8 - 2.4 09/16 [facility] Lvl [facility] CHEM PANEL Phosphorus 2.0 2.5 - 4.5 09/16 [facility] ELECTROLYTE AGAP 8.1 10.0 - 09/16 [facility] S 20.0 [facility] ELECTROLYTE eGFR 47 09/16 Result [facility] Comment: The Medical eGFR is Center [...] ELECTROLYTE CO2 33 24 - 32 09/16 [facility] ELECTROLYTE Calcium Lvl 8.4 8.5 - 10.5 09/16 [place] /2018 [facility] ELECTROLYTE Potassium 4.1 3.5 - 5.1 09/16 Result [facility] Lvl /2018 Comment: [facility] Moderately Hemolyzed. ELECTROLYTE Chloride Lvl 102 95 - 109 09/16 [facility] ELECTROLYTE Sodium Lvl 139 135 - 145 09/16 [facility] S [facility] ELECTROLYTE BUN 37 7 - 22 09/16 [facility]2018 [facility] ELECTROLYTE Creatinine 1.17 0.50 - 09/16 [facility] Lvl 1.40 [facility] ELECTROLYTE Glucose Lvl 302 70 - 99 09/16 [facility]2018 [facility] HEMATOLOGY Platelet 77 133 - 450 09/16 2018 [facility] HEMATOLOGY MCHC 33.5 32.0 - 09/16 [facility] 36.0 [facility] HEMATOLOGY RDW 14.2 11.5 - 09/16 [facility] 14.5 [facility] HEMATOLOGY MPV 11.1 7.4 - 10.4 09/16 [facility]2018 [facility] HEMATOLOGY MCV 92.4 80.0 - 09/16 [facility] 98.0 [facility] HEMATOLOGY MCH 31.0 27.0 - 09/16 [facility] 31.0 2019 [facility] HEMATOLOGY Hct 41.6 36.0 - 09/16 [facility] 48.0 2019 [facility] HEMATOLOGY RBC 4.50 4.20 - 09/16 [facility] 5.40 [facility] HEMATOLOGY Hgb 14.0 12.0 - 09/16 [facility] 16.0 2019 [facility] HEMATOLOGY WBC 10.6 3.7 - 10.4 09/16 [facility]2018 [facility] HEMATOLOGY Neutrophils 8.8 1.5 - 8.1 09/16 [facility] HEMATOLOGY Monocytes # 0.7 0.0 - 0.8 09/16 [facility] /2018 [facility] HEMATOLOGY Basophils 0.3 0.0 - 1.0 09/[address] HEMATOLOGY Lymphocytes 1.0 1.0 - 5.5 09/16 [facility] HEMATOLOGY Segs 83.3 45.0 - 09/16 [place] 75.0 [facility] HEMATOLOGY Lymphocytes 9.9 20.0 - 09/16 [place] 40.0 [facility] HEMATOLOGY Monocytes 6.5 2.0 - 12.0 09/16 [facility] PARATHYROID Ca Norm WB 1.13 1.05 - 09/16 [place] PROFILE 1. [facility] PARATHYROID Ca Ion WB 1.13 1.05 - 09/16 [facility] PROFILE 1. [facility] URINE AND UA Renal Epi 3 <=0 /LPF 09/15 [facility] STOOL [facility] URINE AND UA Bacteria Occasional None Seen 09/15 [place] /HPF /HPF [facility] URINE AND UA Mucus Few /LPF None Seen 09/15 [facility] STOOL /LPF [facility] URINE AND UA Hyal Cast 1 0 - 2 09/15 [facility] URINE AND UA Amorph Occasional None Seen [place] /HPF /HPF [facility] URINE AND UA Protein 30 mg/dL Negative 09/15 [facility] mg/dL /2018 [facility] URINE AND UA pH 5.5 5.0 - 8.0 09/15 [facility] URINE AND UA Glucose [address] [facility] *ABN* /2018 [facility] (09/15/18 5:04 PM) Center URINE AND UA Ketones Negative Negative 09/15 [facility] *NA* /2018 [facility] (09/15/18 5:04 PM) Center URINE AND UA WBC 5 0 - 5 09/15 [facility] URINE AND UA RBC 4 0 - 2 09/15 [facility] STOOL [facility] URINE AND UA Sq Epi Occasional Few /LPF 09/15 [facility] STOOL /LPF [facility] URINE AND UA Leuk Est Negative Negative 09/15 [facility] (09/15/18 5:04 PM) Medica l Center URINE AND UA Blood Negative Negative 09/15 [facility] (09/15/18 5:04 PM) Medica l [place] URINE AND UA 0.2 0.1 - 1.0 09/15 [facility] Urobilinogen /2018 [facility] URINE AND UA Nitrite Negative Negative 09/15 [facility] (09/15/18 5:04 PM) Medica l Center URINE AND UA Bili Negative Negative 09/15 [facility] STOOL *NA* /2018 Medical (09/15/18 5:04 PM) [place] URINE AND UA Spec Grav 1.025 <=1.030 09/15 [facility] STOOL [facility] URINE AND UA Turbidity Clear Clear 09/15 [facility] STOOL (09/15/18 5:04 PM) [facility] URINE AND UA Color Yellow Yellow 09/15 [facility] STOOL *NA* Medical (09/15/18 5:04 PM) [place] IMMUNOLOGY Striated 1:320 Neg:<1:40 09/15 Result [facility] Muscle IgG Comment: Medical Performed At: [facility]
[address], [place] [id number]<br/ >Kosta Tucker MD Ph:[phone] IMMUNOLOGY MuSK Auto Ab <1.0 09/14 Result [facility] Comment: Medical Reference Center Range:
Negative: [...] be useful
to follow treatment.
References:
1. Elena S et al. J Autoimmunity 2014;52:90-10 0.
2. Yeny AVILEZ et al. PNAS 2013;110(84); 53914-67806.< br/>3. Scot E et al. Neurology 2006;67:505-5 07.
This test was developed and its performance characteristi cs
determ ined by [facility]. It has not been cleared or approved
by the Food and Drug Administratio n.
Perfor med At: [facility]
[address] [place], [place] [id number]<br/ >Feliciano Alston MD Ph:[phone] BACTERIAL - MRSA by PCR Negative 09/14 JOSU[facility] SEROLOGY (09/14/18 11:23 AM) /2018 [facility] IMMUNOLOGY ACHr Binding 1.25 0.00 - 09/14 Result [facility] Ab 0.24 Comment: [facility] Negative: 0.00 - 0.24
Borderline: 0.25 - 0.40
Positive: > 0.40
Perf ormed At: [facility]
[address] [place] [id number]<br/ >Kosta Tucker MD Ph:[phone] IMMUNOLOGY ACHr Block 42 0 - 25 09/14 Result [facility] Ab /2018 Comment: [facility] Negative: 0 - 25
Borderline: 26 - 30
Positive: >30

Results for this test are for research purposes
only by the assay's superintendent laundry. The performance<b r/>characteri stics of this product have not been
esta blished. Results should not be used as a
diagnos tic procedure without confirmation of the
diagn osis by another medically established<b r/>diagnostic product or procedure.&lt ;br/>Performe d At: [facility]
[address], [place] [id number]<br/ >Kosta Tucker MD Ph:[phone] HEMATOLOGY Eosinophils 0.1 0.0 - 0.5 09/13 [place] # /2018 [facility] Center HEMATOLOGY Basophils # 0.1 0.0 - 0.2 09/13 [place] /2018 [facility] HEMATOLOGY Eosinophils 1.1 0.0 - 4.0 09/13 [place] /2018 [facility] HEMATOLOGY Basophils # 0.1 0.0 - 0.2 09/13 [place] [facility] HEMATOLOGY Eosinophils 0.1 0.0 - 0.5 09/13 [place] # [facility] Center HEMATOLOGY Eosinophils 0.9 0.0 - 4.0 09/13 [place] /2018 [facility] HEMATOLOGY PB Smear Peripheral 09/12 [facility] Path blood /2018 [facility] smear Center examinatio n; - Platelets are decreased with few giant forms. No platelet clump. - RBCs are normocytic ; no schistocyt e - Leukocytes show unremarkab le morphology ; few reactive lymphocyte s. Clinical correlatio n is suggested. CPT 95017 URINE AND UA Bacteria Occasional None Seen 09/12 [place] /HPF /HPF /2018 [facility] URINE AND UA <1.0 0.1 - 1.0 09/12 [facility] STOOL Urobilinogen /2018 [facility] URINE AND UA Ketones Trace Negative 09/12 [facility] STOOL *ABN* [facility] (09/12/18 11:27 AM) Cente r URINE AND UA Blood Small Negative 09/12 [facility] STOOL *ABN* [facility] (09/12/18 11:27 AM) Cente r URINE AND UA Bili Negative Negative 09/12 [facility] *NA* [facility] (09/12/18 11:27 AM) Cente r URINE AND UA Glucose 150mg/dl 09/12 [facility] STOOL /2018 [facility] URINE AND UA Protein 100 mg/dL Negative 09/12 [facility] STOOL mg/dL [facility] URINE AND UA Turbidity Slight Clear 09/12 [facility] STOOL *ABN* [facility] (09/12/18 11:27 AM) Cente r URINE AND UA pH 5.0 5.0 - 8.0 09/12 [facility] STOOL /[address] [place] [address] URINE AND UA Spec Grav 1.018 <=1.030 09/12 [facility] STOOL [address] [place] [address] URINE AND UA Color Yellow Yellow 09/12 [facility] STOOL *NA* [facility] (09/12/18 11:27 AM) Cente r URINE AND UA Mucus Few /LPF None Seen 09/12 [facility] STOOL /LPF /[address] [place] [address] URINE AND UA Hyal Cast 4 0 - 2 09/12 [facility] STOOL /2018 [facility] URINE AND UA WBC 4 0 - 5 09/12 [facility] /2018 [facility] URINE AND UA Nitrite Negative Negative 09/12 [facility] (09/12/18 11:27 AM) [facility] URINE AND UA RBC 1 0 - 2 09/12 [facility] STOOL /2018 [facility] URINE AND UA Sq Epi Moderate Few /LPF 09/12 [facility] STOOL /LPF /2018 [facility] URINE AND UA Leuk Est Negative Negative 09/12 [facility] STOOL (09/12/18 11:27 AM) /2018 [facility] CHEM PANEL Bili Total 0.7 0.2 - 1.3 09/[address] CHEM PANEL Alk Phos 141 39 - 136 09/[address] CHEM PANEL Total 8.3 6.4 - 8.4 09/12 [facility] Protein [facility] CHEM PANEL AST 25 0 - 37 09/[address] CHEM PANEL ALT 34 0 - 65 09/[address] CHEM PANEL Albumin Lvl 2.7 3.5 - 5.0 09/12 [facility] s [facility] CHEM PANEL Globulin 5.6 2.7 - 4.2 09/[address] CHEM PANEL B/C Ratio 9 6 - 25 09/[address] CHEM PANEL A/G Ratio 0.5 0.7 - 1.6 09/12 [facility]2018 [facility] HEMATOLOGY PTT 31.6 22.9 - 09/12 [place] 35.8 /2019 [facility] HEMATOLOGY PT 14.2 12.0 - 09/12 [place] 14.7 2019 [facility] HEMATOLOGY INR 1.12 0.85 - 09/12 [place] 1.17 [facility] HEMATOLOGY Eosinophils 2.4 0.0 - 4.0 09/12 [facility] s /2018 [facility] HEMATOLOGY Eosinophils 0.2 0.0 - 0.5 09/12 [place] # [facility] HEMATOLOGY Basophils # 0.2 0.0 - 0.2 09/12 [facility] s /2018 [facility] IMMUNOLOGY JAK2 (V617F) Comment 09/12 Result [facility] Director /2019 Comment: Medical Review [facility] , PhD
[facility], Molecular Oncology
[facility]<br/ >[place] [address]
<b r/>Performed At: [facility]
[address] [place], [place] [id number]< br/>Samara Cordova MD Ph:[phone] IMMUNOLOGY JAK2 (V617F) Comment 09/12 Result [facility] Comment: Medical
[facility] EJ, Sanchez LM, Javed PJ, et al. Acquired
mutation of the tyrosine kinase JAK2 in human
mye loproliferati ve disorders. Lancet. 2004Aug 17-;<br/ >365(9114):83 54-1061. Ankur Norman, Mj V, [address] HANK. A
unique clonal JAK2 mutation leading to constitutive< br/>signaling causes polycythaemia vera. Nature. 2004Sep 26;
43 4(2161):1141- 1146.
Flora R, Marianne F, Lizbeth , et al. A gain-of-
function mutation of JAK2 in myeloprolifer ative disorders.
N Engl J Med. 2004Sep 26; 35217):1779- 1790. IMMUNOLOGY JAK2 (V617F) Comment 09/12 Result [facility] Mutation Qnt Comment: Medical Result NEGATIVE
Center
The JAK2 V617F mutation is not detected in the provided
specimen of this individual. This result does not rule out
the presence of the JAK2 mutation at a level below the
sensi tivity of detection of this assay, or the presence of
other mutations within JAK2 not detected by this assay. IMMUNOLOGY JAK2 (V617F) Comment 09/12 Result [facility] Methodology /2018 Comment: Medical
[facility] genomic DNA was extracted and subjected to TaqMan
re al-time PCR amplification /detection. Two amplification
products per sample were monitored by real-time PCR using
winifred mers/probes specific to JAK2 wild type (WT) and JAK2
muta nt V617F. The [id number] Absolute Quantitation software
will compare the patient [...] 1%. IMMUNOLOGY JAK2 (V617F) Comment 09/12 Result [facility] Comment: Medical
The [place] Quantitative Real-Time PCR assay detects V617F mutation
[...] Bili Direct <0.1 0.0 - 0.3 09/11 [facility] CHEM PANEL Bili Unable to 0.0 - 1.0 09/11 [facility] Indirect [facility] CHEM PANEL A/G Ratio 0.5 0.7 - 1.6 09/[address] CHEM PANEL ALT 40 0 - 65 09/[address] CHEM PANEL AST 31 0 - 37 09/[address] CHEM PANEL Alk Phos 144 39 - 136 09/[address] CHEM PANEL Bili Total 0.8 0.2 - 1.3 09/11 [place] [facility] CHEM PANEL Total 7.3 6.4 - 8.4 09/11 [facility] Protein [facility] CHEM PANEL Albumin Lvl 2.5 3.5 - 5.0 09/11 [facility] s [facility] CHEM PANEL Globulin 4.8 2.7 - 4.2 09/[address] Culture: 10,000 - 09/10 [facility] Urine 50,000 [facility] CFU/mL [place] [facility] BLOOD BANK Antibody Negative 09/10 [facility] RESULTS Scrn (09/10/18 5:06 PM) Medica l [place] BLOOD BANK ABO/Rh O POS 09/10 [facility] RESULTS [facility] CHEM PANEL Alk Phos 166 39 - 136 09/10 [facility]2018 [facility] CHEM PANEL Bili Total 0.8 0.2 - 1.3 09/10 [facility]2018 [facility] CHEM PANEL ALT 45 0 - 65 09/[address] CHEM PANEL AST 35 0 - 37 09/10 [facility]2018 [facility] CHEM PANEL Total 7.1 6.4 - 8.4 09/10 [facility] Protein [facility] CHEM PANEL Albumin Lvl 2.9 3.5 - 5.0 09/10 [facility] CHEM PANEL B/C Ratio 11 6 - 25 09/10 [facility]2018 [facility] CHEM PANEL A/G Ratio 0.7 0.7 - 1.6 09/10 [facility]2018 [facility] CHEM PANEL Globulin 4.2 2.7 - 4.2 09/[address] HEMATOLOGY Heparin Negative 1 Negative 09/10 Result [facility] Ab(SRIDEVI) (09/10/18 5:06 PM) Comment: [facility] Medical assay detects Center heparin antibodies of IgG isotype. Antibodies of other isotypes have been reported to cause heparin-induc ed thrombocytope davey. Therefore, if there is a strong clinical suspicion of HIT, additional study with a serotonin release assay is recommented. HEMATOLOGY Pat Od Value 0.127 09/10 [facility] HEMATOLOGY Pos CO Value 0.400 09/10 [facility]2018 [facility] HEMATOLOGY INR 1.08 0.85 - 09/10 [place] 1.17 [facility] HEMATOLOGY Thrombin 19.1 15.0 - 09/10 [place] Time 21.2 [facility] HEMATOLOGY D-Dimer 1.22 09/10 [place] [facility] HEMATOLOGY Fibrinogen 548 230 - 510 09/10 [place] Lvl /2018 [facility] HEMATOLOGY PTT 30.3 22.9 - 09/10 [place] 35.8 /2018 [facility] HEMATOLOGY PT 13.8 12.0 - 09/10 [facility] 14.7 /2018 [facility] IMMUNOLOGY IgA Lvl 615.0 68.0 - 09/10 [place] 378.0 [facility] URINE AND UA Glucose 50mg/dl 09/10 [facility] STOOL [facility] URINE AND UA Turbidity Marked Clear 09/10 [facility] *ABN* [facility] (09/10/18 5:06 PM) [place] URINE AND UA Color Yellow Yellow 09/10 [facility] *NA* [facility] (09/10/18 5:06 PM) [place] URINE AND UA Protein 30 mg/dL Negative 09/10 [facility] mg/dL [facility] URINE AND UA pH 6.0 5.0 - 8.0 09/10 [facility] [address] [place] [address] URINE AND UA Ketones Trace Negative 09/10 [facility] *ABN* [facility] (09/10/18 5:06 PM) [place] URINE AND UA Bili Negative Negative 09/10 [facility] *NA* [facility] (09/10/18 5:06 PM) [place] URINE AND UA Leuk Est Trace Negative 09/10 [facility] *ABN* [facility] (09/10/18 5:06 PM) [place] URINE AND UA <1.0 0.1 - 1.0 09/10 [facility] Urobilinogen /[address] [place] [address] URINE AND UA Blood Small Negative 09/10 [facility] *ABN* [facility] (09/10/18 5:06 PM) [place] URINE AND UA Nitrite Negative Negative 09/10 [facility] (09/10/18 5:06 PM) /2018 Medica l Center URINE AND UA Spec Grav 1.012 <=1.030 09/10 [facility] URINE AND UA WBC 19 0 - 5 09/10 [facility] [address] [place] [address] URINE AND UA Sq Epi Few /LPF Few /LPF 09/10 [facility] [address] [place] [address] URINE AND UA RBC 1 0 - 2 09/10 [facility] [address] [place] [address] URINE AND UA Mucus Few /LPF None Seen 09/10 [facility] STOOL /LPF /2018 [facility] HEMATOLOGY Bands 0.0 0.0 - 11.0 09/10 [place] [facility] HEMATOLOGY Large Plt Slight 09/10 [facility] HEMATOLOGY Atypical 0.0 <=0.0 % 09/10 [facility] Lymphs /2018 [facility] IMMUNOLOGY Striated 1:320 Neg:<1:40 09/10 Result [facility] Muscle IgG Comment: Medical Performed At: Center [facility]
[address] [place] [id number]<br/ >Kosta Tucker MD Ph:[phone] IMMUNOLOGY IgA Lvl 592.0 68.0 - 09/10 [place] 378.0 [facility] HEMATOLOGY Sed Rate 20 0 - 20 09/09 [facility] IMMUNOLOGY C-REACTIVE 5.2 <=2.9 mg/L 09/09 PROTEIN /2018 [facility] HEMATOLOGY PTT 32.0 22.9 - 09/08 35.8 /2018 [facility] HEMATOLOGY PT 13.5 12.0 - 09/08 14.7 /2018 [facility] HEMATOLOGY INR 1.05 0.85 - 09/08 1.17 /2018 [facility] ELECTROLYTE AGAP 15.8 10.0 - 09/08 S 20.0 [facility] ELECTROLYTE B/C Ratio 16 6 - 25 09/08 S [facility] ELECTROLYTE Globulin 4.2 2.7 - 4.2 09/08 S [facility] ELECTROLYTE A/G Ratio 0.7 0.7 - 1.6 09/08 S [facility] ELECTROLYTE Sodium Lvl 147 135 - 145 09/08 S [facility] ELECTROLYTE Potassium 3.8 3.5 - 5.1 09/08 S Lvl /2018 [facility] ELECTROLYTE Chloride Lvl 107 95 - 109 09/08 S [facility] ELECTROLYTE BUN 21 7 - 22 09/08 S [facility] ELECTROLYTE Glucose Lvl 144 70 - 99 09/08 S [facility] ELECTROLYTE Albumin Lvl 2.9 3.5 - 5.0 09/08 S [facility] ELECTROLYTE CO2 28 24 - 32 09/08 S [facility] ELECTROLYTE eGFR 40 09/08 Result S Comment: [facility] eGFR is City calculated using the [...] ELECTROLYTE AST 137 0 - 37 09/08 MH S [facility] ELECTROLYTE ALT 67 0 - 65 09/08 MH S [facility] ELECTROLYTE Creatinine 1.33 0.50 - 04 MH S Lvl 1.40 [facility] ELECTROLYTE Bili Total 1.3 0.2 - 1.3 09/08 MH S [facility] ELECTROLYTE Total 7.1 6.4 - 8.4 09/08 MH S Protein /2018 [facility] ELECTROLYTE Alk Phos 195 39 - 136 09/08 S [facility] ELECTROLYTE Calcium Lvl 9.3 8.5 - 10.5 09/08 S [facility] HEMATOLOGY Basophils # 0.1 0.0 - 0.2 09/08 [facility] HEMATOLOGY Neutrophils 2.5 1.5 - 8.1 09/08 MH # /2018 [facility] HEMATOLOGY Eosinophils 0.2 0.0 - 0.5 09/08 MH # [facility] HEMATOLOGY Monocytes # 0.7 0.0 - 0.8 09/08 [facility] HEMATOLOGY Lymphocytes 3.3 1.0 - 5.5 09/08 MH # [facility] HEMATOLOGY Monocytes 9.8 2.0 - 12.0 09/08 [facility] HEMATOLOGY Eosinophils 2.5 0.0 - 4.0 09/08 [facility] HEMATOLOGY Basophils 2.0 0.0 - 1.0 09/08 [facility] HEMATOLOGY Lymphocytes 48.8 20.0 - 04 MH 40.0 [facility] HEMATOLOGY Segs 36.9 45.0 - 09/08 75.0 [facility] HEMATOLOGY MPV 11.3 7.4 - 10.4 09/08 [facility] HEMATOLOGY MCH 30.3 27.0 - 09/08 31.0 [facility] HEMATOLOGY Platelet 125 133 - 450 09/08 [facility] HEMATOLOGY RDW 13.9 11.5 - 09/08 14. [facility] HEMATOLOGY MCV 92.9 80.0 - 09/08 98.0 [facility] HEMATOLOGY MCHC 32.6 32.0 - 09/08 36.0 [facility] HEMATOLOGY WBC 6.8 3.7 - 10.4 09/08 [facility] HEMATOLOGY RBC 5.13 4.20 - 09/08 . [facility] HEMATOLOGY Hgb 15.5 12.0 - 09/08 16.0 [facility] HEMATOLOGY Hct 47.7 36.0 - 09/08 48.0 [facility] LIPIDS VLDL 24 09/08 [facility] LIPIDS LDL 45 <=99 mg/dL 09/08 (Calculated) [facility] LIPIDS CHD Risk 2.82 3.90 - 09/08 5.80 [facility] LIPIDS HDL 38 >=61 mg/dL 09/08 [facility] LIPIDS Trig 118 <=149 09/08 mg/dL [facility] LIPIDS Chol 107 <=199 09/08 mg/dL [facility] SPECIAL Hgb A1C 12.2 <=5.6 % 09/08 CHEMISTRY [facility] HEMATOLOGY MPV 9.7 7.4 - 10.4 08/19 [facility] HEMATOLOGY Platelet 163 133 - 450 08/19 [facility] HEMATOLOGY RDW 13.7 11.5 - 08/19 [place] 14. [facility] HEMATOLOGY Hgb 17.8 12.0 - 08/19 [place] 16.0 [facility] HEMATOLOGY Hct 52.9 36.0 - 08/19 [place] 48.0 [facility] HEMATOLOGY MCV 92.3 80.0 - 08/19 [place] 98.0 [facility] HEMATOLOGY RBC 5.73 4.20 - 08/19 [place] 5.40 [facility] HEMATOLOGY WBC 8.5 3.7 - 10.4 08/19 [facility] HEMATOLOGY MCHC 33.6 32.0 - 08/19 [facility] 36.0 [facility] HEMATOLOGY MCH 31.0 27.0 - 08/19 [facility] 31.0 [facility] CARDIAC BNP 98 <=100 08/19 [facility] ENZYMES pg/mL [facility] CHEM PANEL Phosphorus 3.4 2.5 - 4.5 08/19 [facility] CHEM PANEL Magnesium 1.9 1.8 - 2.4 08/19 [facility] CHEM PANEL eGFR 62 08/19 Result Comment: [facility] eGFR is Center calculated using the CKD-EPI [...] Calcium Lvl 8.8 8.5 - 10.5 08/19 [facility] CHEM PANEL CO2 23 24 - 32 08/19 [facility] CHEM PANEL Chloride Lvl 106 95 - 109 08/19 [facility] CHEM PANEL Potassium 4.6 3.5 - 5.1 08/19 Result [facility] Comment: [facility] Moderately Hemolyzed. CHEM PANEL Creatinine 0.94 0.50 - 08/19 [facility] Lvl 1.40 [facility] CHEM PANEL Sodium Lvl 138 135 - 145 08/19 2018 [facility] CHEM PANEL BUN 13 7 - 22 08/19 [facility] CHEM PANEL Glucose Lvl 160 70 - 99 08/19 [facility] CHEM PANEL AGAP 13.6 10.0 - 08/19 MH [place] 20.0 /2019 [facility] HEMATOLOGY Eosinophils 0.2 0.0 - 0.5 08/19 [place] # /2019 [facility] Center HEMATOLOGY Basophils # 0.1 0.0 - 0.2 08/19 [place] /2019 [facility] HEMATOLOGY Segs 47.9 45.0 - 08/19 [place] 75.0 /2019 [facility] HEMATOLOGY Lymphocytes 40.1 20.0 - 08/19 [place] 40.0 /2019 [facility] HEMATOLOGY Lymphocytes 3.9 1.0 - 5.5 08/19 [place] # /2019 [facility] HEMATOLOGY Monocytes # 0.9 0.0 - 0.8 08/19 [facility] HEMATOLOGY Monocytes 8.8 2.0 - 12.0 08/19 [facility] HEMATOLOGY Basophils 1.2 0.0 - 1.0 08/19 /2018 [facility] HEMATOLOGY Eosinophils 2.0 0.0 - 4.0 08/19 [facility] s /2018 [facility] HEMATOLOGY Neutrophils 4.7 1.5 - 8.1 08/19 [facility] s [facility] HEMATOLOGY INR 1.09 0.85 - 08/19 [place] 1.17 [facility] HEMATOLOGY PT 13.9 12.0 - 08/19 [place] 14.7 [facility] HEMATOLOGY PTT 31.0 22.9 - 08/19 [place] 35.8 2019 [facility] HEMATOLOGY MCV 93.0 80.0 - 08/19 [place] 98.0 /2019 [facility] HEMATOLOGY MCH 31.1 27.0 - 08/19 [place] 31.0 2019 [facility] HEMATOLOGY RDW 13.7 11.5 - 08/19 [place] 14.5 2019 [facility] HEMATOLOGY MCHC 33.4 32.0 - 08/19 [place] 36.0 2019 [facility] HEMATOLOGY Platelet 77 133 - 450 08/19 /2018 [facility] HEMATOLOGY MPV 9.9 7.4 - 10.4 08/19 [facility] HEMATOLOGY Hct 49.7 36.0 - 08/19 [place] 48.0 /2019 [facility] HEMATOLOGY Hgb 16.6 12.0 - 08/19 [place] 16.0 /2019 [facility] HEMATOLOGY RBC 5.35 4.20 - 08/19 [place] 5.40 /2019 [facility] HEMATOLOGY WBC 9.7 3.7 - 10.4 08/19 [facility] PARATHYROID Ca Ion WB 1.02 1.05 - 08/19 [facility] PROFILE 1. [facility] PARATHYROID Ca Norm WB 0.98 1.05 - 08/19 [facility] PROFILE . [facility] URINE AND Occult Bld Negative Negative 08/19 [facility] STOOL Stl (08/19/18 4:40 AM) [facility] Culture: Normal Enteric Era Isolated 08/19 [facility] Stool No Salmonella Or Shigella [facility] CHEM PANEL Alk Phos 132 39 - 136 08/[address] CHEM PANEL A/G Ratio 0.6 0.7 - 1.6 08/[address] CHEM PANEL ALT 30 0 - 65 08/[address] CHEM PANEL Total 6.9 6.4 - 8.4 08/18 [facility] Protein [facility] CHEM PANEL Albumin Lvl 2.6 3.5 - 5.0 08/[address] CHEM PANEL Globulin 4.3 2.7 - 4.2 08/[address] CHEM PANEL Bili Direct <0.1 0.0 - 0.3 08/[address] CHEM PANEL Bili Total 0.5 0.2 - 1.3 08/[address] CHEM PANEL Bili >0.4 0.0 - 1.0 08/18 [facility] Indirect 2018 [facility] CHEM PANEL AST 21 0 - 37 08/[address] CHEM PANEL Calcium Lvl 8.5 8.5 - 10.5 08/[address] CHEM PANEL eGFR 71 08/18 [facility] Comment: The Medical eGFR is [...] PANEL BUN 13 7 - 22 08/[address] CHEM PANEL Glucose Lvl 162 70 - 99 08/[address] CHEM PANEL CO2 27 24 - 32 08/[address] CHEM PANEL Potassium 3.6 3.5 - 5.1 08/18 [facility] CHEM PANEL Sodium Lvl 142 135 - 145 08/[address] CHEM PANEL Chloride Lvl 108 95 - 109 08/[address] CHEM PANEL Creatinine 0.83 0.50 - 08/18 [facility] 1.40 [facility] CHEM PANEL AGAP 10.6 10.0 - 08/18 [facility] 20.0 [facility] CHEM PANEL Magnesium 1.8 1.8 - 2.4 08/18 [facility] CHEM PANEL Phosphorus 3.6 2.5 - 4.5 08/[address] HEMATOLOGY Neutrophils 3.9 1.5 - 8.1 08/18 [facility] HEMATOLOGY Eosinophils 2.5 0.0 - 4.0 08/[address] HEMATOLOGY Basophils 1.9 0.0 - 1.0 08/[address] HEMATOLOGY Monocytes # 0.6 0.0 - 0.8 08/18 [facility] /[address] [place] [address] HEMATOLOGY Lymphocytes 3.8 1.0 - 5.5 08/18 [facility] HEMATOLOGY Eosinophils 0.2 0.0 - 0.5 08/18 [facility] [address] [place] [address] HEMATOLOGY Basophils # 0.2 0.0 - 0.2 08/[address] HEMATOLOGY Lymphocytes 44.0 20.0 - 08/18 [place] 40.0 [facility] HEMATOLOGY Segs 45.3 45.0 - 08/18 [place] 75.0 [facility] HEMATOLOGY Monocytes 6.3 2.0 - 12.0 08/[address] HEMATOLOGY Hct 49.2 36.0 - 08/18 MH [place] 48.0 2019 [facility] HEMATOLOGY Hgb 17.0 12.0 - 08/18 [place] 16.0 2019 [facility] HEMATOLOGY RBC 5.30 4.20 - 08/18 [place] 5.40 /2019 [facility] HEMATOLOGY WBC 8.7 3.7 - 10.4 08/18 /2018 [facility] HEMATOLOGY MCV 92.8 80.0 - 08/18 [place] 98.0 [facility] HEMATOLOGY MPV 9.7 7.4 - 10.4 08/18 /2019 [facility] HEMATOLOGY RDW 13.6 11.5 - 08/18 [facility] 14.5 2019 [facility] HEMATOLOGY Platelet 161 133 - 450 08/18 [facility] /2018 [facility] HEMATOLOGY MCHC 34.6 32.0 - 08/18 [place] 36.0 [facility] HEMATOLOGY MCH 32.1 27.0 - 08/18 [place] 31.0 [facility] PARATHYROID Ca Norm WB 1.05 1.05 - 08/18 [facility] PROFILE 1. [facility] PARATHYROID Ca Ion WB 1.06 1.05 - 08/18 [facility] PROFILE 1. [facility] HEMATOLOGY Monocytes # 0.9 0.0 - 0.8 08/17 [facility] s /2019 [facility] HEMATOLOGY Eosinophils 0.2 0.0 - 0.5 08/17 [facility] # /2019 [facility] HEMATOLOGY Lymphocytes 5.1 1.0 - 5.5 08/17 [place] # /2019 [facility] HEMATOLOGY Basophils # 0.1 0.0 - 0.2 08/17 [facility] s /2019 [facility] HEMATOLOGY Monocytes 7.6 2.0 - 12.0 08/17 [facility] /2019 [facility] HEMATOLOGY Segs 44.9 45.0 - 08/17 [place] 75.0 2019 [facility] HEMATOLOGY Lymphocytes 44.2 20.0 - 08/17 [place] 40.0 2019 [facility] HEMATOLOGY Basophils 1.3 0.0 - 1.0 08/17 [facility] /2019 [facility] HEMATOLOGY Eosinophils 2.0 0.0 - 4.0 08/17 [place] [facility] HEMATOLOGY Neutrophils 5.2 1.5 - 8.1 08/17 [facility] # /2019 [facility] ELECTROLYTE AGAP 11.9 10.0 - 08/16 [place] S 20.0 /2019 Medical Center ELECTROLYTE eGFR 64 08/16 Result [facility] Comment: The Medical eGFR is Center [...] Sodium Lvl 142 135 - 145 08/16 [facility] ELECTROLYTE Potassium 3.9 3.5 - 5.1 08/16 [facility] /2018 [facility] ELECTROLYTE Chloride Lvl 104 95 - 109 08/16 [facility] ELECTROLYTE CO2 30 24 - 32 08/16 [facility]2018 [facility] ELECTROLYTE Calcium Lvl 9.6 8.5 - 10.5 08/16 [place] [facility] ELECTROLYTE BUN 16 7 - 22 08/[address] ELECTROLYTE Glucose Lvl 121 70 - 99 08/16 [facility]2018 [facility] ELECTROLYTE Creatinine 0.91 0.50 - 08/16 [facility] Lvl 1.40 [facility] HEMATOLOGY RBC Morph Normal 08/16 [facility] (08/16/18 3:35 PM) [facility] HEMATOLOGY Plt Morph Normal 08/16 [facility] (08/16/18 3:35 PM) [facility] HEMATOLOGY PTT 32.0 22.9 - 08/16 [facility] 35.8 [facility] HEMATOLOGY PT 12.6 12.0 - 08/16 [facility] 14.7 [facility] HEMATOLOGY INR 0.96 0.85 - 08/16 [facility] 1.17 [facility] BEDSIDE Gluc POC 148.0 65 - 110 03/25 [place] <sup>1</sup>I [facility] GLUCOSE Lifscn nterpretive Medical TESTING Data: Center Upper Reportable Limit: 200 mg/dL. BEDSIDE Comment1 Notify 03/25 NA [facility] GLUCOSE RN/MD Medical TESTING Center BEDSIDE Comment1 Notify 03/25 NA [facility] GLUCOSE RN/MD Medical TESTING Center BEDSIDE Gluc POC 140.0 65 - 110 03/25 [place] <sup>2</sup>I [facility] GLUCOSE Lifscn nterpretive Medical TESTING Data: Center Upper Reportable Limit: 200 mg/dL. BEDSIDE Comment1 Notify 03/25 NA [place] GLUCOSE RN/MD Medical TESTING Center BEDSIDE Gluc POC 137.0 65 - 110 03/25 [place] <sup>3</sup>I [facility] GLUCOSE Lifscn nterpretive Medical TESTING Data: Center Upper Reportable Limit: 200 mg/dL. CHEMISTRY Globulin 3.3 2.0 - 4.0 03/25 Normal [facility] Center CHEMISTRY Total 5.4 6.4 - 8.4 03/25 LOW Medical Center CHEMISTRY Albumin Lvl 2.1 3.5 - 5.0 03/25 LOW [facility] CHEMISTRY ALT 131.0 0 - 65 03/25 [facility] Medical Center CHEMISTRY Alk Phos 360.0 39 - 136 03/25 [facility] CHEMISTRY A/G Ratio 0.6 0.7 - 1.6 03/25 LOW [facility] CHEMISTRY AST 144.0 0 - 37 03/25 [facility] CHEMISTRY Bili 0.2 0.0 - [...] Lvl 8.0 8.5 - 10.5 03/25 [place] [facility] CHEMISTRY CO2 19.0 24 - 32 03/25 LOW [facility] CHEMISTRY Glucose Lvl 104.0 03/25 NA <sup>4</sup>I [place] nterpretive Medical Data: Center Reference Ranges : 0 - 7 days : 41 - 90 mg/dL 7 days - 150 yrs : 70 - 99 mg/dL (fasting), based on the clinical recommendatio ns of the [employer]. CHEMISTRY BUN 21.0 7 - 22 03/25 Normal [facility] Center CHEMISTRY Creatinine 1.7 0.5 - 1.4 03/25 HI [place] Lvl [facility] Center CHEMISTRY AGAP 18.1 10.0 - 03/25 Normal [place] 20.0 Medical Center HEMATOLOGY Monocytes # 0.9 0.0 - 0.8 03/25 [place] [facility] HEMATOLOGY Basophils # 0.1 0.0 - 0.2 03/25 [place] [facility] HEMATOLOGY Eosinophils 16.0 0.0 - 4.0 03/25 [place] [facility] HEMATOLOGY Monocytes 9.1 2.0 - 12.0 03/25 Normal Medical Center HEMATOLOGY Basophils 1.5 0.0 - 1.0 03/25 [facility] HEMATOLOGY Segs-Bands # 4.3 1.5 - 8.1 03/25 Normal [place] [facility] HEMATOLOGY Lymphocytes 3.2 1.0 - 5.5 03/25 [place] # [facility] HEMATOLOGY Eosinophils 1.6 0.0 - 0.5 03/25 [place] # [facility] HEMATOLOGY Lymphocytes 31.4 20.0 - 03/25 Normal [place] 40.0 Medical Center HEMATOLOGY Segs 42.0 45.0 - 03/25 LOW [place] 75.0 Medical Center HEMATOLOGY RDW 15.0 11.5 - 03/25 HI [place] 14.5 Medical Center HEMATOLOGY MCHC 33.9 32.0 - 03/25 Normal [place] 36.0 Medical Center HEMATOLOGY MCH 31.0 27.0 - 03/25 Normal [place] 31.0 Medical Center HEMATOLOGY MCV 91.4 81.0 - 03/25 Normal [place] 99.0 /2010 [facility] Center HEMATOLOGY Hct 36.8 36.0 - 03/25 Normal [place] 48.0 Medical Center HEMATOLOGY Hgb 12.5 12.0 - 03/25 Normal [place] 16.0 /2010 Medical Center HEMATOLOGY MPV 10.0 7.4 - 10.4 10 Normal Medical Center HEMATOLOGY Platelet 157.0 133 - 450 03/25 Normal Medical Center HEMATOLOGY RBC 4.03 4.20 - 03/25 LOW [place] 5.40 /2010 Medical Center HEMATOLOGY WBC 10.1 3.7 - 10.4 03/25 Normal Medical Center CHEMISTRY A/G Ratio 0.7 0.7 - 1.6 03/24 Normal [facility] Center CHEMISTRY Bili 0.2 0.0 - 1.0 03/24 Normal [place] Indirect [facility] Center CHEMISTRY Globulin 3.2 2.0 - 4.0 03/24 Normal Medical Center CHEMISTRY Total 5.6 6.4 - 8.4 03/24 LOW [place] Protein [facility] CHEMISTRY Albumin Lvl 2.4 3.5 - 5.0 03/24 LOW Medical [facility] CHEMISTRY Bili Direct 0.2 0.0 - 0.3 03/24 Normal [facility] Center CHEMISTRY AST 345.0 0 - 37 03/24 [facility] CHEMISTRY Alk Phos 469.0 39 - 136 03/24 [facility] CHEMISTRY Bili Total 0.4 0.2 - 1.3 03/24 Normal Medical Center CHEMISTRY ALT 192.0 0 - 65 03/24 [facility] CHEMISTRY Magnesium 1.6 1.8 - 2.4 03/24 LOW [place] Lvl Medical Center CHEMISTRY AGAP 15.6 10.0 - 03/24 Normal [place] 20.0 Medical Center CHEMISTRY CO2 21.0 24 - 32 03/24 LOW [facility] CHEMISTRY Potassium 3.6 3.5 - 5.1 03/24 Normal [place] Lvl Medical Center CHEMISTRY Chloride Lvl 109.0 95 - 109 03/24 Normal Medical Center CHEMISTRY Calcium Lvl 7.7 8.5 - 10.5 03/24 [place] [facility] CHEMISTRY Sodium Lvl 142.0 135 - 145 03/24 Normal [facility] CHEMISTRY BUN 23.0 7 - 22 03/24 HI [facility] CHEMISTRY Creatinine 1.7 0.5 - 1.4 03/24 HI [facility] Lvl [facility] CHEMISTRY Glucose Lvl 119.0 03/24 NA <sup>5</sup>I [place] nterpretive Medical Data: Center Reference Ranges : 0 - 7 days : 41 - 90 mg/dL 7 days - 150 yrs : 70 - 99 mg/dL (fasting), based on the clinical recommendatio ns of the [employer]. HEMATOLOGY PT 14.8 12.0 - 03/24 [facility] [place] 14.7 [facility] HEMATOLOGY INR 1.16 0.85 - 03/24 [...] 0.0 - 0.2 03/24 [place] [facility] HEMATOLOGY Segs-Bands # 4.1 1.5 - 8.1 03/24 Normal [place] [facility] Center HEMATOLOGY Lymphocytes 2.8 1.0 - 5.5 03/24 Normal [place] # [facility] Center HEMATOLOGY Monocytes # 0.8 0.0 - 0.8 03/24 [place] [facility] HEMATOLOGY Eosinophils 1.8 0.0 - 0.5 03/24 [facility] [place] # [facility] Center HEMATOLOGY Lymphocytes 28.5 20.0 - 03/24 Normal [place] 40.0 [facility] HEMATOLOGY Monocytes 8.6 2.0 - 12.0 03/24 Normal [facility] HEMATOLOGY Eosinophils 19.0 0.0 - 4.0 03/24 [place] [facility] HEMATOLOGY Basophils 1.3 0.0 - 1.0 03/24 [facility] Medical Center HEMATOLOGY Segs 42.6 45.0 - 03/24 [facility] [place] 75.0 /2010 Medical Center HEMATOLOGY WBC 9.7 3.7 - 10.4 03/24 Normal [facility] Center HEMATOLOGY RBC 3.67 4.20 - 03/24 [facility] [place] 5.40 /2010 Medical Center HEMATOLOGY MCHC 34.9 32.0 - 03/24 [facility] [place] 36.0 Medical Center HEMATOLOGY RDW 15.1 11.5 - 03/24 [facility] [place] 14.5 /2010 Medical Center HEMATOLOGY Platelet 169.0 133 - 450 03/24 Normal [facility] HEMATOLOGY MCV 90.5 81.0 - 03/24 [facility] 99.0 [facility] [place] HEMATOLOGY MCH 31.6 27.0 - 03/24 [facility] [place] 31.0 [facility] Center HEMATOLOGY MPV 9.5 7.4 - 10.4 03/24 Normal [facility] HEMATOLOGY Hgb 11.6 12.0 - 03/24 [facility] [place] 16.0 [facility] Center HEMATOLOGY Hct 33.2 36.0 - 03/24 [facility] [place] 48.0 [facility] Center IMMUNOLOGY Hep Bs Ag Negative >Negative 03/24 NA [facility] *NA* /2010 Medical (03/24/2011 05:08:00) ?? Center CHEMISTRY Amylase Lvl 36.0 25 - 115 03/23 Normal [facility] Center CHEMISTRY Lipase Lvl 242.0 73 - 393 03/23 Normal [facility] Center CHEMISTRY Glucose Lvl 97.0 03/23 NA <sup>6</sup>I [place] ex nterpretive Medical Data: Center Reference Ranges : 0 - 7 days : 41 - 90 mg/dL 7 days - 150 yrs : 70 - 99 mg/dL (fasting), based on the clinical recommendatio ns of the [employer]. CHEMISTRY BUN 22.0 7 - 22 03/23 Normal [facility] Center CHEMISTRY Creatinine 1.5 0.5 - 1.4 03/23 [facility] CHEMISTRY CO2 20.0 24 - 32 03/23 LOW Medical [facility] CHEMISTRY Sodium Lvl 144.0 135 - 145 03/23 Normal Medical Center CHEMISTRY Calcium Lvl 7.8 8.5 - 10.5 03/23 [place] [facility] CHEMISTRY Chloride Lvl 108.0 95 - 109 03/23 Normal Medical Center CHEMISTRY Total 4.7 6.4 - 8.4 03/23 LOW [place] [facility] CHEMISTRY AGAP 19.2 10.0 - [...] Medical Center HEMATOLOGY RBC 3.6 4.20 - 10/23 LOW [place] 5.40 /2010 [facility] HEMATOLOGY Large Plt Slight >None Seen 03/23 ABN [place] *ABN* Medical (03/23/2011 05:24:00) ?? Center HEMATOLOGY Lymphocytes 2.1 1.0 - 5.5 03/23 [place] # [facility] HEMATOLOGY Segs-Bands # 2.7 1.5 - 8.1 03/23 Normal [place] [facility] HEMATOLOGY Monocytes # 0.9 0.0 - 0.8 03/23 [place] [facility] HEMATOLOGY Plt Morph Normal 03/23 Normal [facility] (03/23/2011 05:24:00) ?? [facility] HEMATOLOGY Eosinophils 15.0 0.0 - 4.0 03/23 [facility] [place] [facility] HEMATOLOGY Atypical 0.0 <<=0.0 03/23 Normal [facility] Lymphs [facility] HEMATOLOGY Bands 1.0 0.0 - 11.0 03/23 Normal [facility] HEMATOLOGY Basophils 1.0 0.0 - 1.0 03/23 Normal [facility] HEMATOLOGY Eosinophils 1.0 0.0 - 0.5 03/23 [facility] [place] [facility] HEMATOLOGY Lymphocytes 31.0 20.0 - 03/23 Normal [place] 40.0 [facility] HEMATOLOGY Monocytes 13.0 2.0 - 12.0 03/23 [facility] [place] [facility] [facility] HEMATOLOGY Segs 39.0 45.0 - 03/23 LOW [place] 75.0 [facility] HEMATOLOGY Basophils # 0.1 0.0 - 0.2 03/23 [place] [facility] IMMUNOLOGY Prealbumin 10.0 18.0 - 03/23 LOW [place] 45.0 [facility] Center URINALYSIS UA ?? 0.1 - 1.0 03/22 NA [facility] Urobilinogen [facility] URINALYSIS UA Hyal Cast 3.0 0 - 2 03/22 [facility] [place] [facility] URINALYSIS UA Amorph Occasional /HPF >None Seen 03/22 NA [facility] *NA* Medical (03/22/2011 17:20:00) ?? Center URINALYSIS UA Mucus Few /LPF >None Seen 03/22 NA [place] *NA* Medical (03/22/2011 17:20:00) ?? Center URINALYSIS UA Sq Epi Few /LPF >Few 03/22 NA [place] *NA* Medical (03/22/2011 17:20:00) ?? Center URINALYSIS UA RBC <1.0 0 - 2 03/22 Normal Medical Center URINALYSIS UA Nitrite Negative >Negative 03/22 Normal [place] [facility] (03/22/2011 17:20:00) ?? Medical Center URINALYSIS UA Leuk Est Negative >Negative 03/22 Normal [place] (03/22/2011 17:20:00) ?? Medical Center URINALYSIS UA Protein 200 mg/dL >Negative 03/22 ABN [place] *ABN* Medical (03/22/2011 17:20:00) ?? Center URINALYSIS UA Ketones 10 mg/dL >Negative 03/22 ABN [place] *ABN Medical (03/22/2011 17:20:00) ?? Center URINALYSIS UA Bili Negative >Negative 03/22 NA [place] *NA* Medical (03/22/2011 17:20:00) ?? Center URINALYSIS UA Blood Moderate >Negative 03/22 [facility] *ABN* Medical (03/22/2011 17:20:00) ?? Center URINALYSIS UA Glucose Negative mg/dL >Negative 03/22 NA [facility] *NA* Medical (03/22/2011 17:20:00) ?? Center URINALYSIS UA Spec Grav 1.016 <<=1.030 03/22 [place] [facility] URINALYSIS UA pH 5.5 5.0 - 8.0 03/22 Normal Medical Center URINALYSIS UA Color Yellow >Yellow 03/22 NA [place] *NA* Medical (03/22/2011 17:20:00) ?? Center URINALYSIS UA Turbidity Slight >Clear 03/22 ABN *ABN* Medical (03/22/2011 17:20:00) ?? Center CHEMISTRY Bili 0.2 0.0 - 1.0 03/22 Normal Medical Center CHEMISTRY Bili Direct 0.1 0.0 - 0.3 03/22 Normal Medical Center IMMUNOLOGY Hep A IgM Negative >Negative 03/22 NA [place] *NA* Medical (03/22/2011 09:40:00) ?? Center IMMUNOLOGY Hep B Core Negative >Negative 03/22 [facility] [place] [facility] IgM *NA* Medical (03/22/2011 09:40:00) ?? Center IMMUNOLOGY Hep C Ab Negative >Negative 03/22 NA [place] *NA* Medical (03/22/2011 09:40:00) ?? Center IMMUNOLOGY Hep Bs Ag See Note 9 >Negative 03/22 Normal <sup>9</sup>R [facility] (03/22/2011 09:40:00) ?? esult Medical Comment: [facility] Center Talked to Nyasia Mcdaniels Nurse will recollect in the morning 03/23/2011 16:39 RG CHEMISTRY T4 Free 1.67 0.76 - 03/22 [facility] [place] 1.46 Medical Center CHEMISTRY TSH 0.044 0.360 - 03/22 [facility] [place] 3.740 Medical Center BEDSIDE Comment1 Sliding 03/15 NA [facility] GLUCOSE Scale Medical TESTING Center BEDSIDE Gluc POC 152.0 65 - 110 03/15 [place] <sup>1</sup>I [facility] GLUCOSE Lifsc nterpretive Medical TESTING Data: Center Upper Reportable Limit: 200 mg/dL. BEDSIDE Comment1 Notify 03/15 [facility] GLUCOSE RN/MD Medical TESTING Center BEDSIDE Gluc POC 116.0 65 - 110 03/15 [place] <sup>2</sup>I [facility] GLUCOSE Lifscn nterpretive Medical TESTING Data: Center Upper Reportable Limit: 200 mg/dL. CHEMISTRY AGAP 18.5 10.0 - 03/15 Normal [place] 20.0 Medical Center CHEMISTRY Potassium 3.5 3.5 - 5.1 03/15 Normal [place] Lvl Medical Center CHEMISTRY CO2 21.0 24 - 32 03/15 LOW [place] [facility] CHEMISTRY Sodium Lvl 147.0 135 - 145 03/15 [facility] [place] [facility] CHEMISTRY Creatinine 1.4 0.5 - 1.4 03/15 Normal [place] Lvl Medical Center CHEMISTRY Chloride Lvl 111.0 95 - 109 03/15 [facility] [place] [facility] CHEMISTRY Calcium Lvl 8.1 8.5 - 10.5 03/15 [place] [facility] CHEMISTRY Glucose Lvl 97.0 03/15 NA <sup>12</sup> [place] Interpretive Medical Data: Center Reference Ranges : 0 - 7 days : 41 - 90 mg/dL 7 days - 150 yrs : 70 - 99 mg/dL (fasting), based on the clinical recommendatio ns of the [employer]. CHEMISTRY BUN 21.0 7 - 22 03/15 Normal [place] [facility] Center CHEMISTRY Magnesium 1.7 1.8 - 2.4 03/15 LOW [place] Lvl /2010 Medical Center HEMATOLOGY Lymphocytes 16.7 20.0 - 03/15 LOW [place] 40.0 /2010 Medical Center HEMATOLOGY Monocytes 12.4 2.0 - 12.0 03/15 [facility] [place] [facility] HEMATOLOGY Segs 63.3 45.0 - 03/15 Normal [place] 75.0 Medical Center HEMATOLOGY Eosinophils 0.6 0.0 - 0.5 03/15 [facility] [place] # [facility] [place] HEMATOLOGY Monocytes # 1.1 0.0 - 0.8 03/15 [facility] [place] [facility] [place] HEMATOLOGY Basophils # 0.1 0.0 - 0.2 03/15 [place] [facility] HEMATOLOGY Lymphocytes 1.5 1.0 - 5.5 03/15 [place] # [facility] HEMATOLOGY Segs-Bands # 5.8 1.5 - 8.1 03/15 Normal [facility] HEMATOLOGY Basophils 1.3 0.0 - 1.0 03/15 [facility] [place] [facility] HEMATOLOGY Eosinophils 6.3 0.0 - 4.0 03/15 [facility] [place] [facility] [place] HEMATOLOGY MCH 31.6 27.0 - 03/15 [facility] [place] 31.0 /2010 Medical Center HEMATOLOGY RBC 3.56 4.20 - 03/15 LOW [place] 5.40 /2010 Medical Center HEMATOLOGY MCV 90.7 81.0 - 03/15 Normal [place] 99.0 Medical Center HEMATOLOGY Hct 32.3 36.0 - 03/15 LOW [place] 48.0 /2010 Medical Center HEMATOLOGY Hgb 11.3 12.0 - 03/15 LOW [place] 16.0 /2010 Medical Center HEMATOLOGY WBC 9.1 3.7 - 10.4 03/15 Normal [place] [facility] HEMATOLOGY MPV 10.1 7.4 - 10.4 03/15 Normal Medical Center HEMATOLOGY Platelet 154.0 133 - 450 03/15 Normal Medical Center HEMATOLOGY RDW 14.7 11.5 - 03/15 HI [place] 14.5 Medical Center HEMATOLOGY MCHC 34.8 32.0 - 03/15 Normal [place] 36.0 Medical Center BEDSIDE Comment1 Notify 03/15 NA [facility] GLUCOSE RN/MD /2010 Medical TESTING Center BEDSIDE Gluc POC 126.0 65 - 110 03/15 HI <sup>3</sup>I [facility] GLUCOSE Lifscn nterpretive Medical TESTING Data: Center Upper Reportable Limit: 200 mg/dL. BEDSIDE Comment2 Sliding 03/14 NA [facility] GLUCOSE Scale Medical TESTING Center BEDSIDE Comment2 Sliding 03/14 NA [facility] GLUCOSE Scale Medical TESTING Center CHEMISTRY T4 Free 2.0 0.76 - 03/14 HI [place] 1.46 Medical Center CHEMISTRY TSH 0.042 0.360 - 03/14 LOW [facility] 3.740 Medical Center CHEMISTRY Total CK 31.0 12 - 191 03/14 Normal Medical Center CHEMISTRY Lactic Acid 1.6 0.5 - 2.2 03/14 Normal [facility] Lvl /2010 Medical Center HEMATOLOGY INR 1.15 0.85 - 03/14 Normal <sup>53</sup> [place] 1.17 Interpretive Medical Data: Center RECOMMENDED RANGES FOR PROTIME INR: 2.0-3.0 for most medical and surgical thromboemboli c states. 2.5-3.5 for artificial heart valves and recurrent embolism. INR SHOULD BE USED ONLY FOR PATIENTS ON STABLE ANTICOAGULANT THERAPY. HEMATOLOGY PT 14.7 12.0 - 03/14 Normal [place] 14.7 Medical Center HEMATOLOGY PTT 30.3 22.9 - 03/14 Normal <sup>54</sup> [place] 35.8 Interpretive Medical Data: Heparin Center Therapeutic Range: 57 - 92 Seconds CHEMISTRY Lipase Lvl 49.0 73 - 393 03/14 LOW <sup>28</sup> [place] Result Medical Comment: Center Collection [...] 0.8 0.7 - 1.6 03/14 Normal <sup>19</sup> [place] Result Medical Comment: Center Collection [...] 6.2 6.4 - 8.4 03/14 LOW <sup>16</sup> [place] Protein Result Medical Comment: Center Collection date/time has been modified to: 01:50:00. Previous collection date/time: 01:50:00. CHEMISTRY Alk Phos 109.0 39 - 136 03/14 Normal <sup>25</sup> [place] /2010 Result Medical Comment: Center Collection date/time has been modified to: 01:50:00. Previous collection date/time: 01:50:00. CHEMISTRY Albumin Lvl 2.8 3.5 - 5.0 03/14 LOW <sup>17</sup> [place] Result Medical Comment: Center Collection date/time has been modified to: 01:50:00. Previous collection date/time: 01:50:00. CHEMISTRY B/C Ratio 14.0 6 - 25 03/14 Normal <sup>11</sup> [place] [facility] Result Medical Comment: Center Collection date/time has been modified to: 01:50:00. Previous collection date/time: 01:50:00. CHEMISTRY Calcium Lvl 8.4 8.5 - 10.5 03/14 LOW <sup>20</sup> M H [place] Result Medical Comment: Center Collection date/time has been modified to: 01:50:00. Previous collection date/time: 01:50:00. CHEMISTRY AGAP 21.8 10.0 - 03/14 HI <sup>8</sup>R [place] 20.0 /2010 esult Medical Comment: Center Collection date/time has been modified to: 01:50:00. Previous collection date/time: 01:50:00. CHEMISTRY CO2 19.0 24 - 32 03/14 LOW <sup>7</sup>R [place] esult Medical Comment: Center Collection date/time has [...] 3.8 3.5 - 5.1 03/14 Normal <sup>5</sup>R [facility] esult Medical Comment: Center Collection date/time has been modified to: 01:50:00. Previous collection date/time: 01:50:00. CHEMISTRY BUN 20.0 7 - 22 03/14 Normal <sup>10</sup> Result Medical Comment: Center Collection date/time has been modified to: 01:50:00. Previous collection date/time: 01:50:00. CHEMISTRY Creatinine 1.4 0.5 - 1.4 03/14 Normal <sup>9</sup>R [facility] esult Medical Comment: Center Collection date/time has been modified to: 01:50:00. Previous collection date/time: 01:50:00. CHEMISTRY Glucose Lvl 91.0 03/14 NA <sup>13</sup> [facility] Result Medical Comment: Center Collection date/time has been modified to: 01:50:00. Previous collection date/time: 01:50:00.<br/ ><sup>14</sup >Interpretive Data: Reference Ranges : 0 - 7 days : 41 - 90 mg/dL 7 days - 150 yrs : 70 - 99 mg/dL (fasting), based on the clinical recommendatio ns of the [employer].< br/><sup>15</ sup>Interpret kimberly Data: Reference Ranges : 0 - 7 days : 41 - 90 mg/dL 7 days - 150 yrs : 70 - 99 mg/dL (fasting), based on the clinical recommendatio ns of the [employer]. CHEMISTRY Magnesium 1.2 1.8 - 2.4 03/14 LOW <sup>22</sup> MH [place] Lvl Result Medical Comment: Center [...] Lymphocytes 22.2 20.0 - 03/14 Normal <sup>40</sup> MH [place] 40.0 Result Medical Comment: Center Collection date/time has been modified to: 01:50:00. Previous collection date/time: 01:50:00. HEMATOLOGY Basophils 0.0 0.0 - 1.0 03/14 Normal <sup>43</sup> MH Result Medical Comment: Center Collection date/time [...] Slight 52 >None Seen 03/14 ABN <sup>52</sup> [facility] *ABN* Result Medical (03/14/2011 01:50:00) ?? Comment : Center Collection date/time has been modified to: 01:50:00. Previous collection date/time: 01:50:00. HEMATOLOGY [place] Cell Slight 51 >None Seen 03/14 ABN <sup>51</sup> [facility] *ABN* Result Medical (03/14/2011 01:50:00) ?? Comment : Center Collection date/time has been modified to: 01:50:00. Previous collection date/time: 01:50:00. HEMATOLOGY Anisocyte 1+ 49 >None Seen 03/14 ABN <sup>49</sup> [facility] *ABN* /2010 Result Medical (03/14/2011 01:50:00) ?? Comment : Center Collection date/time has been modified to: 01:50:00. Previous collection date/time: 01:50:00. HEMATOLOGY Polychrom Slight 50 >None Seen 03/14 Normal <sup>50</sup> [facility] (03/14/2011 01:50:00) ?? /2010 Result Medical Comment: Center Collection date/time has been modified to: 01:50:00. Previous collection date/time: 01:50:00. HEMATOLOGY Hgb 13.3 12.0 - 03/14 Normal <sup>31</sup> [place] 16.[place] /2010 Result Medical Comment: Center Collection date/time has been modified to: 01:50:00. Previous collection date/time: 01:50:00. HEMATOLOGY WBC 11.8 3.7 - 10.4 03/14 HI <sup>29</sup> [place] /2010 Result Medical Comment: [...] MCH 31.8 27.0 - 03/14 HI <sup>34</sup> [place] 31.0 /2010 Result Medical Comment: Center Collection date/time has been modified to: 01:50:00. Previous collection date/time: 01:50:00. HEMATOLOGY Hct 37.9 36.0 - 03/14 Normal <sup>32</sup> [place] 48.0 /2010 Result Medical Comment: Center Collection date/time has been modified to: 01:50:00. Previous collection date/time: 01:50:00. HEMATOLOGY MPV 10.0 7.4 - 10.4 03/14 Normal <sup>38</sup> [place] Result Medical Comment: Center Collection date/time has been modified to: 01:50:00. Previous collection date/time: 01:50:00. HEMATOLOGY RDW 13.5 11.5 - 03/14 Normal <sup>36</sup> [place] 14. Result Medical Comment: Center Collection date/time has been modified to: 01:50:00. Previous collection date/time: 01:50:00. HEMATOLOGY Platelet 199.0 133 - 450 03/14 Normal <sup>37</sup> [place] Result Medical Comment: Center Collection date/time has been modified to: 01:50:00. Previous collection date/time: 01:50:00. HEMATOLOGY MCHC 35.1 32.0 - 03/14 Normal <sup>35</sup> [place] 36.0 /2010 Result Medical Comment: Center Collection date/time has been modified to: 01:50:00. Previous collection date/time: 01:50:00. CHEMISTRY AST 27.0 0 - 37 03/13 Normal [facility] CHEMISTRY Globulin 3.2 2.0 - 4.0 03/13 Normal [facility] CHEMISTRY Albumin Lvl 2.9 3.5 - 5.0 03/13 LOW [facility] CHEMISTRY ALT 32.0 0 - 65 03/13 Normal [facility] CHEMISTRY Total 6.1 6.4 - 8.4 03/13 LOW Protein [facility] CHEMISTRY A/G Ratio 0.9 0.7 - 1.6 03/13 Normal Medical Center CHEMISTRY Bili 0.3 0.0 - 1.0 03/13 Normal [facility] Medical Center CHEMISTRY Bili Total 0.4 0.2 - 1.3 03/13 Normal Medical Center CHEMISTRY Bili Direct 0.1 0.0 - 0.3 03/13 Normal [facility] Center CHEMISTRY Alk Phos 103.0 39 - 136 03/13 Normal Medical Center BEDSIDE Gluc POC 197.0 65 - 110 03/07 HI <sup>1</sup>I [facility] GLUCOSE Lifsc nterpretive Medical TESTING Data: Center Upper Reportable Limit: 200 mg/dL. BEDSIDE Comment1 Notify 03/07 NA [facility] GLUCOSE RN/MD Medical TESTING Center BEDSIDE Comment2 Sliding 03/07 NA [facility] GLUCOSE Scale Medical TESTING Center BEDSIDE Gluc POC 112.0 65 - 110 03/07 [place] <sup>2</sup>I [facility] GLUCOSE Lifhi nterpretive Medical TESTING Data: Center Upper Reportable Limit: 200 mg/dL. BEDSIDE Comment1 Notify 03/07 NA [facility] GLUCOSE RN/MD Medical TESTING Center BEDSIDE Comment2 Sliding 03/07 NA [facility] GLUCOSE Scale Medical TESTING Center BEDSIDE Comment1 Notify 03/07 NA [facility] GLUCOSE RN/MD Medical TESTING Center BEDSIDE Gluc POC 180.0 65 - 110 03/07 HI <sup>3</sup>I [facility] GLUCOSE Lifsc nterpretive Medical TESTING Data: Center Upper Reportable Limit: 200 mg/dL. BEDSIDE Comment2 Sliding 03/06 NA [facility] GLUCOSE Scale Medical TESTING Center CHEMISTRY [...] Potassium 3.8 3.5 - 5.1 03/05 Normal [facility] CHEMISTRY Calcium Lvl 8.4 8.5 - 10.5 10/ [place] [facility] CHEMISTRY AGAP 15.8 10.0 - 10 Normal [place] 20.0 Medical Center CHEMISTRY CO2 25.0 24 - 32 10/ Normal [facility] Center CHEMISTRY BUN 16.0 7 - 22 10 Normal Medical Center CHEMISTRY Creatinine 0.9 0.5 - 1.4 10 Normal [facility] Lvl Medical Center CHEMISTRY Glucose Lvl 77.0 10 NA <sup>5</sup>I [place] nterpretive Medical Data: Center Reference Ranges : 0 - 7 days : 41 - 90 mg/dL 7 days - 150 yrs : 70 - 99 mg/dL (fasting), based on the clinical recommendatio ns of the [employer]. HEMATOLOGY Segs 45.6 45.0 - 03/05 Normal [place] 75.0 /2010 Medical Center HEMATOLOGY Monocytes 10.4 2.0 - 12.0 10 Normal [facility] HEMATOLOGY Eosinophils 3.5 0.0 - 4.0 10 [place] [facility] Center HEMATOLOGY Lymphocytes 38.5 20.0 - 10 Normal [place] 40.0 Medical Center HEMATOLOGY Eosinophils 0.4 0.0 - 0.5 10 Normal [place] # [facility] Center HEMATOLOGY Basophils # 0.2 0.0 - 0.2 10 [place] [facility] Center HEMATOLOGY Basophils 2.0 0.0 - 1.0 10 HI Medical [place] HEMATOLOGY Segs-Bands # 5.8 1.5 - 8.1 10 Normal [facility] HEMATOLOGY Lymphocytes 4.9 1.0 - 5.5 10/ [place] # [facility] [place] HEMATOLOGY Monocytes # 1.3 0.0 - 0.8 10 [place] [facility] HEMATOLOGY Hgb 9.9 12.0 - 10 LOW [place] 16.0 Medical Center HEMATOLOGY MCV 92.6 81.0 - 10 Normal [place] 99.0 /2010 Medical Center HEMATOLOGY RBC 3.08 4.20 - 1005 LOW [place] 5.40 /2010 Medical Center HEMATOLOGY WBC 12.7 3.7 - 10.4 10 [facility] Medical Center HEMATOLOGY MCH 32.0 27.0 - 10 [facility] [place] 31.0 Medical Center HEMATOLOGY Hct 28.5 36.0 - 10 LOW [place] 48.0 Medical Center HEMATOLOGY MCHC 34.6 32.0 - 10 Normal [place] 36.0 Medical Center HEMATOLOGY Platelet 221.0 133 - 450 03/05 Normal Medical Center HEMATOLOGY RDW 16.5 11.5 - 03/05 [facility] [place] 14. Medical Center HEMATOLOGY MPV 9.1 7.4 - 10.4 10 Normal Medical Center HEMATOLOGY Platelet 270.0 133 - 450 03/03 Normal Medical Center HEMATOLOGY RDW 16.4 11. - 03/03 [facility] [place] 14. Medical Center HEMATOLOGY MCHC 33.6 32.0 - 10 Normal [place] 36.0 Medical Center HEMATOLOGY MCH 31.8 27.0 - 03/03 [facility] [place] 31.0 Medical Center HEMATOLOGY WBC 12.4 3.7 - 10.4 10 [place] Medical Center HEMATOLOGY MPV 9.4 7.4 - 10.4 10 Normal Medical Center HEMATOLOGY MCV 94.6 81.0 - 10 [facility] [place] 99.0 Medical Center HEMATOLOGY Hct 30.8 36.0 - 10 [facility] [place] 48.0 Medical Center HEMATOLOGY Hgb 10.4 12.0 - 10 [facility] [place] 16.0 Medical Center HEMATOLOGY RBC 3.25 4.20 - 10 [facility] [place] . Medical Center HEMATOLOGY RDW 16.0 11.5 - 03/02 [facility] [place] 14. Medical Center HEMATOLOGY MPV 9.1 7.4 - 10.4 03/02 Normal Medical Center HEMATOLOGY Platelet 283.0 133 - 450 03/02 Normal Medical Center HEMATOLOGY RBC 3.23 4.20 - 10 [facility] [place] 5.40 Medical Center HEMATOLOGY MCV 94.5 81.0 - 10/ Normal [place] 99.0 Medical Center HEMATOLOGY Hct 30.5 36.0 - 10 [facility] [place] 48.0 Medical Center HEMATOLOGY Hgb 10.3 12.0 - 10 LOW [place] 16.0 /2010 Medical Center HEMATOLOGY MCHC 33.6 32.0 - 03/02 Normal [place] 36.0 /2010 Medical Center HEMATOLOGY WBC 12.7 3.7 - 10.4 10 [place] [facility] HEMATOLOGY MCH 31.8 27.0 - 03/02 HI [place] 31.0 /2010 Medical Center URINALYSIS UA ?? 0.1 - 1.0 03/01 NA [facility] Urobilinogen /2010 Medical Center URINALYSIS UA Turbidity Clear >Clear 03/01 Normal [facility] (03/01/2011 15:38:00) ?? Medical Center URINALYSIS UA Spec Grav 1.009 <<=1.030 03/01 [place] [facility] [place] URINALYSIS UA Color Yellow >Yellow 03/01 NA [facility] * Medical (03/01/2011 15:38:00) ?? Center URINALYSIS UA pH 5.5 5.0 - 8.0 03/01 Normal Medical Center URINALYSIS UA Ketones Negative mg/dL >Negative 03/01 [facility] Medical (03/01/2011 15:38:00) ?? Center URINALYSIS UA Glucose Negative mg/dL >Negative 03/01 [facility] Medical (03/01/2011 15:38:00) ?? Center URINALYSIS UA Bili Negative >Negative 03/01 NA [facility] Medical (03/01/2011 15:38:00) ?? Center URINALYSIS UA Blood Negative >Negative 03/01 Normal [facility] (03/01/2011 15:38:00) ?? Medical Center URINALYSIS UA WBC <1.0 0 - 5 03/01 Normal Medical Center URINALYSIS UA Nitrite Negative >Negative 03/01 Normal [place] [facility] (03/01/2011 15:38:00) ?? Medical Center URINALYSIS UA Leuk Est Negative >Negative 03/01 Normal [place] (03/01/2011 15:38:00) ?? Medical Center URINALYSIS UA Mucus Few /LPF >None Seen 03/01 NA [facility] *NA* Medical (03/01/2011 15:38:00) ?? Center URINALYSIS UA Sq Epi Moderate /LPF >Few 03/01 [place]N [place] *ABN* Medical (03/01/2011 15:38:00) ?? Center URINALYSIS UA Hyal Cast 1.0 0 - 2 03/01 Normal [facility] URINALYSIS UA Protein 10 mg/dL >Negative 03/01 [place] *ABN* Medical (03/01/2011 15:38:00) ?? Center Microbiolog Culture: 03/01 y Urine [facility] HEMATOLOGY Lymphocytes 5.7 1.0 - 5.5 02/28 [place] # [facility] HEMATOLOGY Segs-Bands # 4.8 1.5 - 8.1 02/28 Normal [facility] HEMATOLOGY Basophils 1.0 0.0 - 1.0 02/28 Normal [facility] HEMATOLOGY Monocytes 8.9 2.0 - 12.0 02/28 Normal [facility] HEMATOLOGY Eosinophils 2.8 0.0 - 4.0 02/28 [place] [facility] HEMATOLOGY Lymphocytes 47.3 20.0 - 02/28 HI [place] 40.0 Medical Center HEMATOLOGY Segs 40.0 45.0 - 02/28 LOW [place] 75.0 Medical Center HEMATOLOGY Basophils # 0.1 0.0 - 0.2 02/28 Normal s [facility] Center HEMATOLOGY Monocytes # 1.1 0.0 - 0.8 02/28 HI s [facility] Center HEMATOLOGY Eosinophils 0.3 0.0 - 0.5 02/28 [place] [facility] Center CHEMISTRY Globulin 2.8 2.0 - 4.0 02/27 Normal [facility] Center CHEMISTRY B/C Ratio 14.0 6 - 25 02/27 Normal [facility] Center CHEMISTRY AGAP 13.8 10.0 - 02/27 Normal [place] 20.0 [facility] Center CHEMISTRY A/G Ratio 0.8 0.7 - 1.6 02/27 Normal [facility] CHEMISTRY Total 5.0 6.4 - 8.4 02/27 LOW [facility] CHEMISTRY Calcium Lvl 8.4 8.5 - 10.5 02/27 LOW Medical Center CHEMISTRY ALT 24.0 0 - 65 02/27 Normal [facility] CHEMISTRY Albumin Lvl 2.2 3.5 - 5.0 02/27 LOW [facility] CHEMISTRY Bili Total 0.3 0.2 - 1.3 02/27 Normal [facility] CHEMISTRY AST 21.0 0 - 37 02/27 Normal [facility] CHEMISTRY Alk Phos 98.0 39 - 136 02/27 Normal [facility] Center CHEMISTRY CO2 28.0 24 - 32 02/27 Normal [facility] CHEMISTRY BUN 10.0 7 - 22 02/27 Normal [facility] CHEMISTRY Potassium 3.8 3.5 - 5.1 02/27 Normal [facility] CHEMISTRY Sodium Lvl 143.0 135 - 145 02/27 Normal [facility] CHEMISTRY Creatinine 0.7 0.5 - 1.4 02/27 Normal [facility] Medical [place] CHEMISTRY Glucose Lvl 119.0 02/27 NA <sup>6</sup>I T nterpretive Medical Data: Center Reference Ranges : 0 - 7 days : 41 - 90 mg/dL 7 days - 150 yrs : 70 - 99 mg/dL (fasting), based on the clinical recommendatio ns of the [employer]. CHEMISTRY Chloride Lvl 105.0 95 - 109 02/27 Normal [facility] HEMATOLOGY Monocytes # 0.9 0.0 - 0.8 02/27 [facility] HEMATOLOGY Eosinophils 0.3 0.0 - 0.5 02/27 [place] [facility] HEMATOLOGY Lymphocytes 3.3 1.0 - 5.5 02/27 [place] [facility] HEMATOLOGY Basophils # 0.1 0.0 - 0.2 02/27 Normal [facility] HEMATOLOGY Basophils 1.2 0.0 - 1.0 02/27 [facility] HEMATOLOGY Segs-Bands # 6.0 1.5 - 8.1 02/27 Normal Medical [place] HEMATOLOGY Monocytes 8.3 2.0 - 12.0 02/27 Normal [facility] HEMATOLOGY Eosinophils 3.1 0.0 - 4.0 09/29 Normal [facility] HEMATOLOGY Segs 56.6 45.0 - 02/27 Normal [facility] 75.0 Medical Center HEMATOLOGY Lymphocytes 30.8 20.0 - 02/27 Normal [facility] 40.0 Medical Center BEDSIDE Gluc POC 207.0 65 - 110 02/26 [place] <sup>1</sup>I [facility] GLUCOSE nterpretive Medical TESTING Data: Center Upper Reportable Limit: 200 mg/dL. BEDSIDE Comment1 Notify 02/26 NA [facility] GLUCOSE RN/MD /2010 Medical TESTING Center BEDSIDE Comment1 Notify 02/26 NA [facility] GLUCOSE RN/MD /2010 Medical TESTING Center BEDSIDE Gluc POC 155.0 65 - 110 02/26 [place] <sup>2</sup>I [facility] GLUCOSE [facility] nterpretive Medical TESTING Data: Center Upper Reportable Limit: 200 mg/dL. BEDSIDE Gluc POC 140.0 65 - 110 02/26 [place] <sup>3</sup>I [facility] GLUCOSE [facility] nterpretive Medical TESTING Data: Center Upper Reportable Limit: 200 mg/dL. CHEMISTRY AGAP 15.6 10.0 - 02/26 Normal [facility] 20.0 [facility] Center CHEMISTRY CO2 25.0 24 - 32 02/26 Normal [facility] Center CHEMISTRY Calcium Lvl 7.9 8.5 - 10.5 02/26 LOW [facility] Center CHEMISTRY Sodium Lvl 142.0 135 - 145 02/26 Normal [facility] CHEMISTRY Potassium 3.6 3.5 - 5.1 02/26 Normal [facility] Center CHEMISTRY Creatinine 0.5 0.5 - 1.4 02/26 Normal [facility] Center CHEMISTRY Chloride Lvl 105.0 95 - 109 02/26 Normal [facility] Center CHEMISTRY BUN 9.0 7 - 22 02/26 Normal [facility] Center CHEMISTRY Glucose Lvl 120.0 02/26 NA <sup>4</sup>I T ex nterpretive Medical Data: Center Reference Ranges : 0 - 7 days : 41 - 90 mg/dL 7 days - 150 yrs : 70 - 99 mg/dL (fasting), based on the clinical recommendatio ns of the [employer]. HEMATOLOGY Hgb 10.5 12.0 - 02/26 LOW [place] 16.0 Medical Center HEMATOLOGY Hct 31.2 36.0 - 02/26 LOW [facility] 48.0 Medical Center BEDSIDE Comment1 Notify 02/26 NA [facility] GLUCOSE RN/MD Medical TESTING Center CHEMISTRY Magnesium 1.9 1.8 - 2.4 02/24 Normal [facility] Medical Center CHEMISTRY Calcium Lvl 7.9 8.5 - 10.5 02/24 [place] [facility] CHEMISTRY Chloride Lvl 106.0 95 - 109 02/24 Normal Medical Center CHEMISTRY CO2 24.0 24 - 32 02/24 Normal Medical Center CHEMISTRY Sodium Lvl 142.0 135 - 145 02/24 Normal Medical Center CHEMISTRY Creatinine 0.6 0.5 - 1.4 02/24 Normal [facility] Medical Center CHEMISTRY BUN 12.0 7 - 22 02/24 Normal Medical Center CHEMISTRY Glucose Lvl 89.0 02/24 NA <sup>5</sup>I T ex nterpretive Medical Data: Center Reference Ranges : 0 - 7 days : 41 - 90 mg/dL 7 days - 150 yrs : 70 - 99 mg/dL (fasting), based on the clinical recommendatio ns of the [employer]. CHEMISTRY Potassium 3.7 3.5 - 5.1 02/24 Normal [facility] Center CHEMISTRY AGAP 15.7 10.0 - 02/24 [facility] 20.0 Medical Center HEMATOLOGY Hct 30.7 36.0 - 02/24 [facility] 48.0 Medical Center HEMATOLOGY Hgb 10.3 12.0 - 02/24 [facility] 16.0 Medical Center HEMATOLOGY Sed Rate 105.0 0 - 20 02/24 [facility] CHEMISTRY Magnesium 1.7 1.8 - 2.4 02/21 LOW [facility] Medical Center CHEMISTRY Ca Norm mgdL 4.64 4.65 - 02/21 [facility] 5. Medical Center CHEMISTRY Ca Ion 1.1 1.16 - 02/21 [facility] 1. Medical Center CHEMISTRY Ca Norm 1.16 1.16 - 02/21 Normal [facility] 1.30 Medical Center CHEMISTRY Ca Ion mgdL 4.4 4.65 - 02/21 LOW [place] 5.20 /2010 Medical Center CHEMISTRY AGAP 16.9 10.0 - 02/21 Normal [place] 20.0 Medical Center CHEMISTRY BUN 6.0 7 - 22 02/21 LOW [facility] Center CHEMISTRY Creatinine 0.4 0.5 - 1.4 02/21 LOW [facility] Lvl Medical Center CHEMISTRY Glucose Lvl 154.0 02/21 NA <sup>6</sup>I [place] nterpretive Medical Data: Center Reference Ranges : 0 - 7 days : 41 - 90 mg/dL 7 days - 150 yrs : 70 - 99 mg/dL (fasting), based on the clinical recommendatio ns of the [employer]. CHEMISTRY Potassium 4.9 3.5 - 5.1 02/21 Normal [facility] Lvl Medical Center CHEMISTRY Sodium Lvl 138.0 135 - 145 02/21 Normal [facility] Center CHEMISTRY Calcium Lvl 7.7 8.5 - 10.5 02/21 LOW Medical Center CHEMISTRY Chloride Lvl 107.0 95 - 109 02/21 Normal [facility] Center CHEMISTRY CO2 19.0 24 - 32 02/21 LOW [facility] Center CHEMISTRY Phosphorus 3.7 2.5 - 4.5 02/21 Normal [facility] Center HEMATOLOGY Eosinophils 0.6 0.0 - 0.5 02/21 [facility] [place] # [facility] HEMATOLOGY Monocytes # 0.9 0.0 - 0.8 02/21 [facility] [place] [facility] HEMATOLOGY Basophils # 0.0 0.0 - 0.2 02/21 Normal [place] [facility] HEMATOLOGY Eosinophils 6.9 0.0 - 4.0 02/21 [facility] [place] [facility] HEMATOLOGY Monocytes 9.6 2.0 - 12.0 02/21 Normal [facility] HEMATOLOGY Segs-Bands # 5.2 1.5 - 8.1 02/21 Normal Medical [place] HEMATOLOGY Basophils 0.3 0.0 - 1.0 02/21 Normal [facility] Center HEMATOLOGY Lymphocytes 2.3 1.0 - 5.5 02/21 [place] # [facility] [place] HEMATOLOGY Segs 57.5 45.0 - 09/23 Normal [place] 75.0 /2010 Medical Center HEMATOLOGY Lymphocytes 25.7 20.0 - 02/21 Normal [place] 40.0 /2010 Medical Center HEMATOLOGY MCHC 34.1 32.0 - 02/21 Normal [place] 36.0 /2010 Medical Center HEMATOLOGY Platelet 166.0 133 - 450 02/21 Normal Medical Center HEMATOLOGY RDW 16.2 11.5 - 02/21 HI [place] 14.5 /2010 Medical Center HEMATOLOGY MPV 7.8 7.4 - 10.4 02/21 Normal Medical Center HEMATOLOGY Hct 32.4 36.0 - 02/21 LOW [place] 48.0 /2010 Medical Center HEMATOLOGY MCV 96.0 81.0 - 02/21 Normal [place] 99.0 /2010 Medical Center HEMATOLOGY MCH 32.7 27.0 - 02/21 [facility] [place] 31.0 Medical Center HEMATOLOGY RBC 3.38 4.20 - 02/21 LOW [place] 5.40 /2010 Medical Center HEMATOLOGY Hgb 11.0 12.0 - 02/21 LOW [place] 16.0 /2010 Medical Center HEMATOLOGY WBC 9.0 3.7 - 10.4 02/21 Normal /2010 Medical Center CHEMISTRY Magnesium 3.1 1.8 - 2.4 02/20 HI [place] Lvl /2010 Medical Center CHEMISTRY Phosphorus 3.4 2.5 - 4.5 02/20 Normal Medical Center CHEMISTRY Ca Ion mgdL 5.08 4.65 - 02/20 Normal [place] 5. Medical Center CHEMISTRY Ca Norm 1.28 1.16 - 02/20 Normal [place] 1.30 Medical Center CHEMISTRY Ca Ion 1.27 1.16 - 02/20 Normal [place] 1.30 Medical Center CHEMISTRY Ca Norm mgdL 5.12 4.65 - 02/20 Normal [place] 5.20 Medical Center HEMATOLOGY MCV 95.8 81.0 - [...] 16.5 11.5 - 02/20 HI [place] 14.5 /2010 Medical Center HEMATOLOGY RBC 3.19 4.20 - 02/20 LOW [place] 5.40 /2010 Medical Center HEMATOLOGY WBC 6.9 3.7 - 10.4 02/20 Normal [place] [facility] HEMATOLOGY Eosinophils 0.4 0.0 - 0.5 02/20 [place] # /2010 Medical Center HEMATOLOGY Basophils # 0.0 0.0 - 0.2 02/20 [place] /2010 [facility] Center HEMATOLOGY Monocytes # 0.6 0.0 - 0.8 02/20 [place] [facility] HEMATOLOGY Segs 63.4 45.0 - 02/20 Normal [place] 75.0 /2010 Medical Center HEMATOLOGY Lymphocytes 20.5 20.0 - 02/20 Normal [place] 40.0 /2010 Medical Center HEMATOLOGY Monocytes 9.3 2.0 - 12.0 02/20 Normal Medical Center HEMATOLOGY Eosinophils 6.4 0.0 - 4.0 02/20 [place] /2010 Medical Center HEMATOLOGY Basophils 0.4 0.0 - 1.0 02/20 Normal Medical Center HEMATOLOGY Segs-Bands # 4.4 1.5 - 8.1 02/20 Normal [facility] HEMATOLOGY Lymphocytes 1.4 1.0 - 5.5 02/20 [place] # /2010 Medical Center CHEMISTRY Ca Norm 1.02 1.16 - 02/19 LOW [place] 1. Medical Center CHEMISTRY Ca Norm mgdL 4.08 4.65 - 02/19 [facility] [place] 5. Medical Center CHEMISTRY Ca Ion mgdL 4.12 4.65 - 02/19 LOW [place] 5.20 Medical Center CHEMISTRY Ca Ion 1.03 1.16 - 02/19 LOW [place] 1.30 Medical Center CHEMISTRY AST 66.0 0 - 37 02/19 [facility] Medical Center CHEMISTRY Bili Total 0.8 0.2 - 1.3 02/19 Normal Medical Center CHEMISTRY Albumin Lvl 2.3 3.5 - 5.0 02/19 LOW Medical Center CHEMISTRY Total 4.8 6.4 - 8.4 02/19 LOW [place] [facility] CHEMISTRY ALT 67.0 0 - 65 02/19 [facility] Center CHEMISTRY Globulin 2.5 2.0 - 4.0 02/19 Normal [facility] CHEMISTRY A/G Ratio 0.9 0.7 - 1.6 02/19 Normal [facility] CHEMISTRY Alk Phos 155.0 39 - 136 02/19 [facility] CHEMISTRY B/C Ratio 20.0 6 - 25 02/19 Normal Medical [place] HEMATOLOGY PTT 29.4 22.9 - 02/19 Normal <sup>8</sup>[place] 35.8 /2010 nterpretive Medical Data: Heparin Center Therapeutic Range: [...] HEMATOLOGY RBC 3.4 4.20 - 02/19 [facility] [place] 5.40 /2010 [facility] Center HEMATOLOGY MCH 32.2 27.0 - 02/19 [facility] [place] 31.0 [facility] HEMATOLOGY MCV 95.7 81.0 - 02/19 Normal [facility] 99.0 /2010 [facility] HEMATOLOGY MCHC 33.6 32.0 - 02/19 [facility] [place] 36.0 /2010 [facility] HEMATOLOGY RDW 16.7 11.5 - 02/19 [facility] [place] 14.5 [facility] HEMATOLOGY MPV 7.8 7.4 - 10.4 02/19 Normal [facility] Center HEMATOLOGY Platelet 173.0 133 - 450 02/19 Normal [facility] HEMATOLOGY WBC 7.4 3.7 - 10.4 02/19 Normal [facility] HEMATOLOGY Monocytes 8.7 2.0 - 12.0 02/19 Normal [facility] HEMATOLOGY Lymphocytes 15.6 20.0 - 02/19 [facility] [place] 40.0 /2010 [facility] HEMATOLOGY Lymphocytes 1.1 1.0 - 5.5 02/19 [place] # /2010 Medical Center HEMATOLOGY Monocytes # 0.6 0.0 - 0.8 02/19 [place] /2010 [facility] Center HEMATOLOGY Eosinophils 5.3 0.0 - 4.0 02/19 [place] /2010 Medical Center HEMATOLOGY Segs-Bands # 5.1 1.5 - 8.1 02/19 Normal [place] /2010 Medical Center HEMATOLOGY Basophils 0.6 0.0 - 1.0 02/19 Normal [place] [facility] HEMATOLOGY Segs 69.8 45.0 - 02/19 Normal [place] 75.0 Medical Center HEMATOLOGY Eosinophils 0.4 0.0 - 0.5 02/19 [place] # /2010 [facility] Center HEMATOLOGY Basophils # 0.0 0.0 - 0.2 02/19 [place] [facility] Center CHEMISTRY Lactic Acid 1.1 0.5 - 2.2 02/19 Normal [facility] Lvl /2010 [facility] Microbiolog Culture: 02/19 [facility] y Resistant [facility] Acinetobacte Center r Screen Microbiolog Culture: 02/19 [facility] y MRSA /2010 [facility] Center Microbiolog Culture: 02/19 [facility] y Anaerobic [facility] Center Microbiolog Culture: 02/19 [facility] y Aspirate/Bod [facility] Center Fluid/Tissue CHEMISTRY POC A Glu 109.0 65 - 110 02/19 Normal [facility] CHEMISTRY POC A LA 0.6 0.5 - 2.2 02/19 Normal [facility] CHEMISTRY POC A Ca Ion 1.08 1.16 - 02/19 [facility] 1.30 [facility] CHEMISTRY POC A Na 140.0 135 - 145 02/19 Normal [facility] CHEMISTRY POC A Hct 29.0 36.0 - 02/19 LOW [place] 48.0 [facility] CHEMISTRY POC A K 3.3 3.5 - 5.1 02/19 LOW [facility] CHEMISTRY POC A O2 Sat 100.0 95.0 - 02/19 Normal [facility] 100.0 [facility] CHEMISTRY POC A HCO3 22.0 22 - 26 02/19 Normal [facility] CHEMISTRY POC A BE -4.0 -2-2 - 2 02/19 [facility] CHEMISTRY POC A Source ART 02/19 NA [facility] CHEMISTRY POC A pH 7.33 7.35 - 02/19 LOW [facility] 7. Medical Center CHEMISTRY POC A PCO2 41.0 35 - 45 02/19 Normal Medical Center CHEMISTRY POC A Temp 37.0 02/19 NA [facility] CHEMISTRY POC A PO2 433.0 80 - 100 02/19 HI [facility] Center Microbiolog Culture: 02/19 [place] y Aspirate/Bod Medical y Center Fluid/Tissue Microbiolog Culture: CSF 02/19 [place] w/Gram Stain /2010 [facility] BODY FLUIDS Protein CSF 39.0 15 - 45 02/19 Normal [facility] BODY FLUIDS Glucose CSF 70.0 45 - 80 02/19 Normal [facility] BODY FLUIDS WBC CSF 1.0 0 - 5 02/19 Normal [facility] BODY FLUIDS Color CSF Light Red >Colorless 02/19 ABN [place] *ABN* Medical (02/19/2011 11:00:00) ?? Center BODY FLUIDS Clarity CSF Slight >Clear 02/19 ABN [place] *ABN* Medical (02/19/2011 11:00:00) ?? Center BODY FLUIDS Supernat CSF Colorless >Colorless 02/19 Normal [facility] (02/19/2011 11:00:00) ?? [facility] Center BODY FLUIDS RBC CSF 2885.0 0 - 0 02/19 HI [facility] Center BODY FLUIDS Tube Num CSF xxxxxxx 02/19 [place] (02/19/2011 11:00:00) ?? [facility] CHEMISTRY POC A Glu 107.0 65 - 110 02/19 Normal [facility] Center CHEMISTRY POC A K 3.2 3.5 - 5.1 02/19 LOW [facility] CHEMISTRY POC A Ca Ion 1.1 1.16 - 02/19 LOW [facility] 1.30 [facility] Center CHEMISTRY POC A LA 0.7 0.5 - 2.2 02/19 Normal [facility] CHEMISTRY POC A Source ART 02/19 NA [facility] CHEMISTRY POC A pH 7.35 7.35 - 02/19 LOW [facility] 7.45 [facility] Center CHEMISTRY POC A Temp 37.0 02/19 NA [facility] Center CHEMISTRY POC A BE -3.0 -2-2 - 2 02/19 LOW Medical Center CHEMISTRY POC A PCO2 41.0 35 - 45 02/19 Normal Medical Center CHEMISTRY POC A PO2 404.0 80 - 100 02/19 [facility] CHEMISTRY POC A HCO3 23.0 22 - 26 02/19 Normal Medical Center CHEMISTRY POC A Na 140.0 135 - 145 02/19 Normal Medical Center CHEMISTRY POC A O2 Sat 100.0 95.0 - 02/19 Normal [place] 100.0 Medical Center CHEMISTRY POC A Hct 29.0 36.0 - 02/19 LOW [place] 48.0 [facility] Center BLOOD BANK ABO/Rh O NEG 02/19 Unknown [place] RESULTS [facility] Center BLOOD BANK Antibody Negative 02/19 Normal [facility] RESULTS Scrn (02/19/2011 10:33:00) ?? Medical Center CHEMISTRY POC A K 3.7 3.5 - 5.1 02/19 Normal Medical Center CHEMISTRY POC A Ca Ion 1.1 1.16 - 02/19 LOW [place] 1.30 Medical Center CHEMISTRY POC A Glu 118.0 65 - 110 02/19 HI Medical Center CHEMISTRY POC A LA 1.0 0.5 - 2.2 02/19 Normal Medical Center CHEMISTRY POC A Na 136.0 135 - 145 02/19 Normal [facility] CHEMISTRY POC A pH 7.43 7.35 - 02/19 Normal [place] 7.45 [facility] Center CHEMISTRY POC A PO2 381.0 80 - 100 02/19 [facility] CHEMISTRY POC A BE -1.0 -2-2 - 2 02/19 Normal Medical Center CHEMISTRY POC A HCO3 23.0 22 - 26 02/19 Normal Medical Center CHEMISTRY POC A O2 Sat 100.0 95.0 - 02/19 Normal [place] 100.0 Medical Center CHEMISTRY POC A PCO2 34.0 35 - 45 02/19 LOW [facility] Center CHEMISTRY POC A Temp 37.0 02/19 NA Medical Center CHEMISTRY POC A Source ART 02/19 NA Medical Center CHEMISTRY POC A Hct 34.0 36.0 - 02/19 LOW [place] 48.0 Medical Center CHEMISTRY AGAP 12.0 10.0 - 02/19 Normal [place] 20.0 Medical Center CHEMISTRY Sodium Lvl 141.0 135 - 145 02/19 Normal Medical Center CHEMISTRY BUN 12.0 7 - 22 02/19 Normal Medical Center CHEMISTRY Creatinine 0.6 0.5 - 1.4 02/19 Normal Medical Center CHEMISTRY CO2 24.0 24 - 32 02/19 Normal Medical Center CHEMISTRY Calcium Lvl 7.9 8.5 - 10.5 02/19 LOW Medical Center CHEMISTRY Potassium 4.0 3.5 - 5.1 02/19 Normal Medical Center CHEMISTRY Chloride Lvl 109.0 95 - 109 02/19 Normal Medical Center CHEMISTRY Glucose Lvl 99.0 02/19 NA <sup>8</sup>I [place] nterpretive Medical Data: Center Reference Ranges : 0 - 7 days : 41 - 90 mg/dL 7 days - 150 yrs : 70 - 99 mg/dL (fasting), based on the clinical recommendatio ns of the [employer]. HEMATOLOGY Lymphocytes 2.4 1.0 - 5.5 02/19 [place] [facility] HEMATOLOGY Monocytes # 0.7 0.0 - 0.8 02/19 Normal Medical Center HEMATOLOGY Basophils # 0.0 0.0 - 0.2 02/19 Normal Medical Center HEMATOLOGY Eosinophils 0.6 0.0 - 0.5 02/19 [facility] [place] HEMATOLOGY Segs-Bands # 2.4 1.5 - 8.1 02/19 Normal Medical Center HEMATOLOGY Monocytes 10.9 2.0 - 12.0 02/19 Normal Medical Center HEMATOLOGY Basophils 0.8 0.0 - 1.0 02/19 Normal Medical Center HEMATOLOGY Eosinophils 9.4 0.0 - 4.0 02/19 [facility] Medical Center HEMATOLOGY Lymphocytes 39.3 20.0 - 02/19 Normal [place] 40.0 Medical Center HEMATOLOGY Segs 39.6 45.0 - 02/19 LOW [place] 75.0 Medical Center HEMATOLOGY MPV 8.2 7.4 - 10.4 02/19 Normal Medical Center HEMATOLOGY Platelet 159.0 133 - 450 02/19 Normal Medical Center HEMATOLOGY MCH 32.9 27.0 - 02/19 HI [place] 31.0 /2010 Medical Center HEMATOLOGY MCV 94.8 81.0 - 02/19 Normal [place] 99.0 /2010 Medical Center HEMATOLOGY MCHC 34.7 32.0 - 02/19 Normal [place] 36.0 /2010 Medical Center HEMATOLOGY RDW 16.4 11.5 - 02/19 HI [place] 14.5 /2010 Medical Center HEMATOLOGY Hgb 10.7 12.0 - 02/19 LOW [place] 16.0 /2010 [facility] Center HEMATOLOGY RBC 3.26 4.20 - 02/19 LOW [place] 5.40 /2010 Medical Center HEMATOLOGY Hct 30.9 36.0 - 02/19 LOW [place] 48.0 /2010 [facility] Center HEMATOLOGY WBC 6.2 3.7 - 10.4 02/19 Normal Medical Center HEMATOLOGY INR 1.0 0.85 - 02/19 Normal <sup>[place]</sup> [place] 1.17 /2010 Interpretive Medical Data: Center RECOMMENDED RANGES FOR PROTIME INR: 2.0-3.0 for most medical and surgical thromboemboli c states. 2.5-3.5 for artificial heart valves and recurrent embolism. INR SHOULD BE USED ONLY FOR PATIENTS ON STABLE ANTICOAGULANT THERAPY. HEMATOLOGY PT 13.2 12.0 - 02/19 Normal [facility] 14.7 [facility] Center HEMATOLOGY PTT 30.3 22.9 - 02/19 Normal <sup>12</sup> [place] 35.8 /2010 Interpretive Medical Data: Heparin Center Therapeutic Range: 57 - 92 Seconds BEDSIDE Gluc POC 142.0 65 - 110 02/19 HI <sup>1</sup>I [facility] GLUCOSE [facility] nterpretive Medical TESTING Data: Center Upper Reportable Limit: 200 mg/dL. BEDSIDE Comment1 Notify 02/19 NA [place] GLUCOSE [place]/ /2010 Medical TESTING Center BEDSIDE Gluc POC 153.0 65 - 110 02/19 HI <sup>2</sup>I [facility] GLUCOSE [facility] nterpretive Medical TESTING Data: [place] Upper Reportable Limit: 200 mg/dL. BEDSIDE Comment1 Notify 02/19 NA [place] GLUCOSE [place]/ /2010 Medical TESTING Center BEDSIDE Gluc POC 149.0 65 - 110 02/19 HI <sup>3</sup>I [facility] GLUCOSE [place] /2010 nterpretive Medical TESTING Data: Center Upper Reportable Limit: 200 mg/dL. BEDSIDE Comment1 Notify 02/18 NA [facility] GLUCOSE RN/MD /2010 Medical TESTING Center HEMATOLOGY MCV 94.3 81.0 - 02/18 Normal [place] 99.0 /2010 Medical Center HEMATOLOGY Hct 33.1 36.0 - 02/18 LOW [place] 48.0 Medical Center HEMATOLOGY RDW 16.6 11.5 - 02/18 HI [place] 14.5 Medical Center HEMATOLOGY MCH 32.8 27.0 - 02/18 [facility] [place] 31.0 Medical Center HEMATOLOGY MCHC 34.7 32.0 - 02/18 Normal [place] 36.0 Medical Center HEMATOLOGY MPV 7.9 7.4 - 10.4 02/18 Normal Medical Center HEMATOLOGY Platelet 152.0 133 - 450 02/18 Normal Medical Center HEMATOLOGY WBC 6.4 3.7 - 10.4 02/18 Normal Medical Center HEMATOLOGY RBC 3.51 4. - 02/18 LOW [place] 5.40 Medical Center HEMATOLOGY Hgb 11.5 12.0 - 02/18 LOW [place] 16.0 Medical Center HEMATOLOGY MPV 8.1 7.4 - 10.4 02/15 Normal Medical Center HEMATOLOGY MCH 32.7 27.0 - 02/15 [facility] [place] 31.0 /2010 Medical Center HEMATOLOGY MCV 95.1 81.0 - 02/15 Normal [place] 99.0 Medical Center HEMATOLOGY MCHC 34.3 32.0 - 02/15 Normal [place] 36.0 Medical Center HEMATOLOGY Platelet 117.0 133 - 450 02/15 LOW Medical Center HEMATOLOGY RDW 16.5 11.5 - 02/15 [facility] [place] 14.5 Medical Center HEMATOLOGY WBC 12.9 3.7 - 10.4 02/15 HI Medical Center HEMATOLOGY Hct 34.1 36.0 - 02/15 LOW [place] 48.0 Medical Center HEMATOLOGY Hgb 11.7 12.0 - 02/15 LOW [place] 16.0 Medical Center HEMATOLOGY RBC 3.58 4.20 - 02/15 LOW [place] 5.40 Medical Center HEMATOLOGY Basophils # 0.1 0.0 - 0.2 02/15 [place] [facility] [place] HEMATOLOGY Eosinophils 0.4 0.0 - 0.5 02/15 [place] # /2010 [facility] Center HEMATOLOGY Monocytes # 0.6 0.0 - 0.8 02/15 [place] [facility] HEMATOLOGY Monocytes 4.8 2.0 - 12.0 02/15 Normal [facility] HEMATOLOGY Lymphocytes 26.8 20.0 - 02/15 Normal [place] 40.0 /2010 Medical Center HEMATOLOGY Lymphocytes 3.5 1.0 - 5.5 02/15 [place] # /2010 [facility] HEMATOLOGY Segs-Bands # 8.3 1.5 - 8.1 02/15 [place] [facility] HEMATOLOGY Basophils 0.8 0.0 - 1.0 02/15 Normal [facility] HEMATOLOGY Eosinophils 3.0 0.0 - 4.0 02/15 [place] [facility] HEMATOLOGY Segs 64.6 45.0 - 02/15 Normal [place] 75.0 [facility] CHEMISTRY Globulin 3.1 2.0 - 4.0 02/13 Normal [facility] CHEMISTRY Albumin Lvl 2.7 3.5 - 5.0 02/13 LOW [facility] CHEMISTRY Total 5.8 6.4 - 8.4 02/13 LOW [facility] CHEMISTRY B/C Ratio 43.0 6 - 25 02/13 [facility] CHEMISTRY A/G Ratio 0.9 0.7 - 1.6 02/13 Normal [facility] CHEMISTRY ALT 52.0 0 - 65 02/13 Normal [facility] CHEMISTRY Alk Phos 183.0 39 - 136 02/13 [facility] CHEMISTRY eGFR >60.0 02/13 NA <sup>6</sup>R esult Medical Comment: Center Expected eGFR for >20 yr. age group: >=60 ml/min/1.73 sq m The eGFR calculation is not valid in or for persons < 18 years of age. From [employer] (NKDEP) CHEMISTRY AGAP 16.9 10.0 - 02/13 Normal [place] 20.0 [facility] CHEMISTRY Calcium Lvl 8.5 8.5 - 10.5 02/13 Normal [facility] CHEMISTRY Bili Total 0.6 0.2 - 1.3 02/13 Normal [facility] Center CHEMISTRY AST 49.0 0 - 37 02/13 [facility] Medical Center CHEMISTRY Chloride Lvl 97.0 95 - 109 02/13 Normal [facility] CHEMISTRY Potassium 4.9 3.5 - 5.1 02/13 Normal <sup>5</sup>R [facility] esult Medical Comment: Center Specimen Moderately Hemolyzed. CHEMISTRY Creatinine 0.4 0.5 - 1.4 02/13 LOW [facility] Medical Center CHEMISTRY Sodium Lvl 134.0 135 - 145 02/13 LOW [facility] Center CHEMISTRY Glucose Lvl 109.0 02/13 NA <sup>9</sup>I [facility] nterpretive Medical Data: Center Reference Ranges : 0 - 7 days : 41 - 90 mg/dL 7 days - 150 yrs : 70 - 99 mg/dL (fasting), based on the clinical recommendatio ns of the [employer]. CHEMISTRY BUN 17.0 7 - 22 02/13 Normal [facility] CHEMISTRY CO2 25.0 24 - 32 02/13 Normal [facility] Center CHEMISTRY AGAP 18.6 10.0 - 02/12 Normal . [facility] Center CHEMISTRY Calcium Lvl 8.3 8.5 - 10.5 02/12 LOW [facility] Center CHEMISTRY Glucose Lvl 63.0 02/12 NA <sup>10</sup> [facility] Interpretive Medical Data: Center Reference Ranges : 0 - 7 days : 41 - 90 mg/dL 7 days - 150 yrs : 70 - 99 mg/dL (fasting), based on the clinical recommendatio ns of the [employer]. CHEMISTRY BUN 19.0 7 - 22 02/12 Normal [facility] Center CHEMISTRY Creatinine 0.7 0.5 - 1.4 02/12 Normal [facility] Medical Center CHEMISTRY Sodium Lvl 135.0 135 - 145 02/12 Normal [facility] Center CHEMISTRY Chloride Lvl 97.0 95 - 109 02/12 Normal [facility] Center CHEMISTRY Potassium 3.6 3.5 - 5.1 02/12 Normal [place] [facility] CHEMISTRY CO2 23.0 24 - 32 02/12 LOW [facility] Center HEMATOLOGY Monocytes # 1.0 0.0 - 0.8 02/12 [place] [facility] HEMATOLOGY Basophils # 0.1 0.0 - 0.2 02/12 [place] [facility] [place] HEMATOLOGY Eosinophils 0.2 0.0 - 0.5 02/12 [place] [facility] HEMATOLOGY Lymphocytes 4.9 1.0 - 5.5 02/12 [place] [facility] HEMATOLOGY Basophils 0.7 0.0 - 1.0 02/12 Normal [facility] HEMATOLOGY Segs-Bands # 12.2 1.5 - 8.1 02/12 [facility] HEMATOLOGY Monocytes 5.5 2.0 - 12.0 02/12 Normal [facility] HEMATOLOGY Eosinophils 1.1 0.0 - 4.0 02/12 Normal [facility] HEMATOLOGY Segs 66.2 45.0 - 02/12 Normal [place] 75.0 [facility] HEMATOLOGY Lymphocytes 26.5 20.0 - 02/12 Normal [place] 40.0 [facility] CHEMISTRY Magnesium 1.8 1.8 - 2.4 02/11 Normal [facility] CHEMISTRY AST 57.0 0 - 37 02/11 [facility] CHEMISTRY Total 6.8 6.4 - 8.4 02/11 Normal Protein [facility] CHEMISTRY Albumin Lvl 3.2 3.5 - 5.0 02/11 LOW [facility] CHEMISTRY Globulin 3.6 2.0 - 4.0 02/11 Normal [facility] CHEMISTRY A/G Ratio 0.9 0.7 - 1.6 02/11 Normal [facility] CHEMISTRY ALT 59.0 0 - 65 02/11 Normal [facility] CHEMISTRY Alk Phos 258.0 39 - 136 02/11 [facility] CHEMISTRY Bili Total 0.7 0.2 - 1.3 02/11 Normal [facility] CHEMISTRY B/C Ratio 45.0 6 - 25 02/11 [facility] Medical Center HEMATOLOGY Anisocyte 1+ >None Seen 02/11 ABN [facility] *ABN* Medical (02/11/2011 14:00:00) ?? Center BEDSIDE Comment2 Sliding 02/11 NA [facility] GLUCOSE Scale Medical TESTING Center STOOL TESTS Fecal None Seen 4 02/11 Normal <sup>4</sup>I [facility] Leukocyte (02/11/2011 00:59:00) ?? nterp retive Medical Data: A Value Center of None Seen, Rare, or Few is Normal. BEDSIDE Comment2 Sliding 02/11 NA [facility] GLUCOSE Medical TESTING Center CHEMISTRY eGFR 48.0 02/10 NA <sup>7</sup>R esult Medical Comment: Center Expected eGFR for >20 yr. age group: >=60 ml/min/1.73 sq m The eGFR calculation is not valid in or for persons < 18 years of age. From [employer] (NKDEP) CHEMISTRY Globulin 3.0 2.0 - 4.0 02/10 Normal [facility] Center CHEMISTRY A/G Ratio 1.0 0.7 - 1.6 02/10 Normal [facility] Center CHEMISTRY B/C Ratio 23.0 6 - 25 02/10 Normal [facility] Center CHEMISTRY AST 31.0 0 - 37 02/10 Normal [facility] Center CHEMISTRY Albumin Lvl 3.1 3.5 - 5.0 02/10 LOW [facility] CHEMISTRY ALT 64.0 0 - 65 02/10 Normal [facility] CHEMISTRY Total 6.1 6.4 - 8.4 02/10 LOW [facility] CHEMISTRY Bili Total 0.5 0.2 - 1.3 02/10 Normal [facility] Center CHEMISTRY Alk Phos 235.0 39 - 136 02/10 [facility] HEMATOLOGY Polychrom Slight >None Seen 02/08 Normal [facility] (02/08/2011 05:19:00) ?? [facility] Center HEMATOLOGY Hypochrom Slight >None Seen 02/08 [facility] (02/08/2011 05:19:00) ?? Medical Center HEMATOLOGY Anisocyte 1+ >None Seen 02/08 [facility] *ABN* Medical (02/08/2011 05:19:00) ?? Center HEMATOLOGY Plt Morph Normal 02/08 Normal [facility] (02/08/2011 05:19:00) ?? Medical Center BEDSIDE Comment2 Sliding 02/07 NA [facility] GLUCOSE Scale Medical TESTING Center HEMATOLOGY Bands 0.0 0.0 - 11.0 02/06 Normal Medical Center BLOOD BANK Antibody Negative 02/05 Normal [facility] RESULTS Scrn (02/05/2011 14:12:00) ?? Medical Center BLOOD BANK ABO/Rh O NEG 02/05 Unknown [facility] Medical Center CHEMISTRY Total CK 64.0 - 191 02/04 Normal Medical Center CHEMISTRY Troponin-I 0.03 0.00 - 02/04 Normal [facility] 0.40 Medical Center CHEMISTRY Total CK 71.0 - 02/03 Normal Medical Center CHEMISTRY Troponin-I 0.05 0.00 - 02/03 Normal [facility] 0. Medical Center Microbiolog Culture: 02/02 [facility] y Urine Medical Center URINALYSIS UA ?? 0.1 - 1.0 02/02 [facility] Urobilinogen [facility] Center URINALYSIS UA Sq Epi None Seen 02/02 [facility] Center URINALYSIS UA Leuk Est Negative >Negative 02/02 Normal [place] (02/02/2011 17:21:00) ?? Medical Center URINALYSIS UA RBC <1.0 0 - 2 02/02 Normal [facility] Center URINALYSIS UA Bacteria Occasional /HPF >None Seen 02/02 [facility] * Medical (02/02/2011 17:21:00) ?? Center URINALYSIS UA Nitrite Negative >Negative 02/02 [place]02/02/[place] 17:21:00[place] ?? Medical Center URINALYSIS UA Ketones Negative mg/dL >Negative 02/02 [facility] * Medical (02/02/2011 17:21:00) ?? Center URINALYSIS UA Bili Negative >Negative 02/02 [facility]* Medical (02/02/2011 17:21:00) ?? Center URINALYSIS UA Blood Negative >Negative 02/02 Normal [facility] (02/02/2011 17:21:00) ?? Medical Center URINALYSIS UA Protein Negative mg/dL >Negative 02/02 Normal [facility] (02/02/2011 17:21:00) ?? /2010 [facility] Center URINALYSIS UA Glucose Negative mg/dL >Negative 02/02 NA [facility] *NA* Medical (02/02/2011 17:21:00) ?? Center URINALYSIS UA Color Light Yellow >Yellow 02/02 NA [facility] *NA* Medical (02/02/2011 17:21:00) ?? Center URINALYSIS UA Turbidity Clear >Clear 02/02 Normal [facility] (02/02/2011 17:21:00) ?? [facility] Center URINALYSIS UA Spec Grav 1.004 <<=1.030 02/02 Normal [facility] URINALYSIS UA pH 7.0 5.0 - 8.0 02/02 Normal [facility] CHEMISTRY T4 Free 0.98 0.76 - 02/01 Normal [facility] 1.46 [facility] CHEMISTRY TSH 0.711 0.360 - 02/01 Normal [facility] 3.740 [facility] IMMUNOLOGY Prealbumin 19.4 18.0 - 02/01 Normal [facility] 45.0 Medical Center BEDSIDE Comment1 Notify 01/31 [facility] GLUCOSE RN/MD Medical TESTING Center BEDSIDE Gluc POC 109.0 65 - 110 01/31 Normal <sup>2</sup>I [facility] GLUCOSE Lifscn nterpretive Medical TESTING Data: Center Upper Reportable Limit: 200 mg/dL. CHEMISTRY Phosphorus 2.9 2.5 - 4.5 01/31 Normal [facility] CHEMISTRY CO2 24.0 24 - 32 01/31 Normal [facility] CHEMISTRY Calcium Lvl 7.7 8.5 - 10.5 01/31 LOW [facility] CHEMISTRY Glucose Lvl 100.0 01/31 NA <sup>5</sup>I [place] nterpretive Medical Data: Center Reference Ranges : 0 - 7 days : 41 - 90 mg/dL 7 days - 150 yrs : 70 - 99 mg/dL (fasting), based on the clinical recommendatio ns of the [employer]. CHEMISTRY Sodium Lvl 138.0 135 - 145 01/31 Normal [facility] CHEMISTRY Potassium 3.9 3.5 - 5.1 01/31 Normal [facility] Medical Center CHEMISTRY BUN 17.0 7 - 22 01/31 Normal Medical Center CHEMISTRY Creatinine 0.7 0.5 - 1.4 01/31 Normal [facility] Center CHEMISTRY Chloride Lvl 100.0 95 - 109 01/31 Normal Medical Center CHEMISTRY AGAP 17.9 10.0 - 01/31 Normal [place] 20.0 [facility] CHEMISTRY Magnesium 1.9 1.8 - 2.4 01/31 Normal [facility] Medical Center CHEMISTRY Ca Norm 1.13 1.16 - 01/31 LOW [place] 1. [facility] CHEMISTRY Ca Ion 1.09 1.16 - 01/31 LOW [place] 1. [facility] CHEMISTRY Ca Norm mgdL 4.52 4.65 - 01/31 LOW [facility] 5. Medical Center CHEMISTRY Ca Ion mgdL 4.36 4.65 - 01/31 LOW [facility] 5. Medical Center HEMATOLOGY Large Plt Slight >None Seen 01/31 ABN [place] *ABN* /2010 Medical (01/31/2011 03:36:00) ?? Center HEMATOLOGY Monocytes # 1.4 0.0 - 0.8 01/31 [facility] [place] [facility] HEMATOLOGY Myelocytes 3.0 <<=0.0 01/31 [facility] HEMATOLOGY Segs-Bands # 18.6 1.5 - 8.1 01/31 [facility] [facility] HEMATOLOGY Lymphocytes 1.6 1.0 - 5.5 01/31 [place] [facility] [facility] HEMATOLOGY Metamyelocyt 2.0 0.0 - 1.0 01/31 [facility] [place] [facility] HEMATOLOGY Lymphocytes 7.0 20.0 - 01/31 LOW [place] 40.0 [facility] HEMATOLOGY Monocytes 6.0 2.0 - 12.0 01/31 Normal [facility] HEMATOLOGY Segs 79.0 45.0 - 01/31 [facility] [place] 75.0 [facility] HEMATOLOGY Bands 2.0 0.0 - 11.0 01/31 Normal [facility] HEMATOLOGY Hypochrom Slight >None Seen 01/31 [facility] (01/31/2011 03:36:00) ?? /2010 Medical Center HEMATOLOGY Polychrom Slight >None Seen 01/31 Normal [facility] (01/31/2011 03:36:00) ?? Medical Center HEMATOLOGY Rouleaux Present >None Seen 01/31 ABN [facility] *ABN* /2010 Medical (01/31/2011 03:36:00) ?? Center HEMATOLOGY Atypical 0.0 <<=0.0 01/31 Normal [facility] Lymphs /2010 Medical Center HEMATOLOGY Promyelocyte 1.0 <<=0.0 01/31 HI [facility] s /2010 Medical Center HEMATOLOGY RDW 15.3 11.5 - 01/31 HI [facility] 14.5 /2010 Medical Center HEMATOLOGY MPV 10.1 7.4 - 10.4 01/31 Normal Medical Center HEMATOLOGY Platelet 166.0 133 - 450 01/31 Normal [facility] HEMATOLOGY Hct 37.3 36.0 - 01/31 Normal [facility] 48.0 /2010 Medical Center HEMATOLOGY MCHC 32.7 32.0 - 01/31 Normal [facility] 36.0 /2010 Medical Center HEMATOLOGY MCV 94.8 81.0 - 01/31 Normal [facility] 99.0 /2010 Medical Center HEMATOLOGY MCH 31.0 27.0 - 01/31 Normal [facility] 31.0 Medical Center HEMATOLOGY WBC 23.0 3.7 - 10.4 01/31 HI [facility] Center HEMATOLOGY RBC 3.93 4.20 - 01/31 LOW [facility] 5.40 /2010 [facility] Center HEMATOLOGY Hgb 12.2 12.0 - 01/31 Normal [facility] 16.0 Medical Center BEDSIDE Gluc POC 188.0 65 - 110 01/31 HI <sup>3</sup>I [facility] GLUCOSE [place] nterpretive Medical TESTING Data: [place] Upper Reportable Limit: 200 mg/dL. BEDSIDE Comment1 Notify 01/31 NA [facility] GLUCOSE RENAY/ Medical TESTING Center BEDSIDE Gluc POC 233.0 65 - 110 01/31 [facility] <sup>4</sup>I [facility] GLUCOSE [place] nterpretive Medical TESTING Data: [place] Upper Reportable Limit: 200 mg/dL. BEDSIDE Comment1 Notify 01/30 NA [facility] GLUCOSE RENAY/ 2011 Medical TESTING Center CHEMISTRY Albumin Lvl 2.7 3.5 - 5.0 01/29 LOW Medical Center CHEMISTRY Phosphorus 3.7 2.5 - 4.5 01/29 Normal Medical Center CHEMISTRY Ca Ion mgdL 4.2 4.65 - 01/29 LOW [place] 5. [facility] CHEMISTRY Ca Norm mgdL 4.24 4.65 - 01/29 LOW [facility] 5. Medical Center CHEMISTRY Ca Ion 1.05 1.16 - 01/29 LOW [place] 1. [facility] CHEMISTRY Ca Norm 1.06 1.16 - 01/29 LOW [facility] 1. Medical Center CHEMISTRY Magnesium 2.4 1.8 - 2.4 01/29 Normal [facility] Lvl Medical Center CHEMISTRY AGAP 15.0 10.0 - 01/29 Normal [facility] 20.0 Medical Center CHEMISTRY BUN 23.0 7 - 22 01/29 [facility] CHEMISTRY Creatinine 0.8 0.5 - 1.4 01/29 Normal [facility] Medical Center CHEMISTRY Glucose Lvl 232.0 01/29 NA <sup>6</sup>I [place] nterpretive Medical Data: Center Reference Ranges : 0 - 7 days : 41 - 90 mg/dL 7 days - 150 yrs : 70 - 99 mg/dL (fasting), based on the clinical recommendatio ns of the [employer]. CHEMISTRY Potassium 4.0 3.5 - 5.1 01/29 Normal [facility] Center CHEMISTRY Sodium Lvl 144.0 135 - 145 01/29 Normal Medical Center CHEMISTRY Chloride Lvl 109.0 95 - 109 01/29 Normal [facility] CHEMISTRY CO2 24.0 24 - 32 01/29 Normal [facility] CHEMISTRY Calcium Lvl 7.8 8.5 - 10.5 01/29 [place] [facility] HEMATOLOGY Large Plt Slight >None Seen 01/29 ABN [facility] *ABN* Medical (01/29/2011 10:02:00) ?? Center HEMATOLOGY Polychrom Slight >None Seen 01/29 Normal [facility] (01/29/2011 10:02:00) ?? Medical Center HEMATOLOGY Atypical 0.0 <<=0.0 01/29 Normal [facility] Lymphs Medical Center HEMATOLOGY NRBC 1.0 01/29 NA Medical Center HEMATOLOGY Segs 81.0 45.0 - 01/29 [facility] [place] 75.0 /2010 Medical Center HEMATOLOGY Lymphocytes 9.0 20.0 - 01/29 LOW [place] 40.0 /2010 Medical Center HEMATOLOGY Monocytes 5.0 2.0 - 12.0 01/29 Normal [facility] HEMATOLOGY Myelocytes 1.0 <<=0.0 01/29 [facility] HEMATOLOGY Metamyelocyt 2.0 0.0 - 1.0 01/29 [facility] [place] [facility] HEMATOLOGY Bands 2.0 0.0 - 11.0 01/29 Normal [facility] HEMATOLOGY Monocytes # 1.0 0.0 - 0.8 01/29 [facility] [place] [facility] HEMATOLOGY Lymphocytes 1.8 1.0 - 5.5 01/29 [place] /[place] [facility] HEMATOLOGY Segs-Bands # 16.3 1.5 - 8.1 01/29 [facility] [place] /2010 Medical Center HEMATOLOGY MPV 9.4 7.4 - 10.4 01/29 Normal Medical Center HEMATOLOGY Hct 33.9 36.0 - 01/29 LOW [place] 48.0 Medical Center HEMATOLOGY MCV 94.0 81.0 - 01/29 Normal [place] 99.0 /2010 Medical Center HEMATOLOGY MCH 31.5 27.0 - 01/29 [facility] [place] 31.0 Medical Center HEMATOLOGY MCHC 33.6 32.0 - 01/29 [facility] [place] 36.0 /2010 Medical Center HEMATOLOGY RDW 16.1 11.5 - 01/29 [facility] [place] 14.5 Medical Center HEMATOLOGY Platelet 178.0 133 - 450 01/29 Normal Medical Center HEMATOLOGY WBC 19.6 3.7 - 10.4 01/29 [facility] Medical Center HEMATOLOGY Hgb 11.4 12.0 - 01/29 LOW [place] 16.0 Medical Center HEMATOLOGY RBC 3.61 4.20 - 01/29 LOW [place] 5.40 /2010 [facility] Center CHEMISTRY AGAP 14.2 10.0 - 01/28 Normal [place] 20.0 Medical Center CHEMISTRY Chloride Lvl 116.0 95 - 109 01/28 [facility] Medical Center CHEMISTRY Sodium Lvl 152.0 135 - 145 01/28 [facility] Medical Center CHEMISTRY Potassium 3.2 3.5 - 5.1 08/30 LOW [place] [facility] CHEMISTRY CO2 25.0 24 - 32 01/28 Normal [facility] Center CHEMISTRY Calcium Lvl 7.5 8.5 - 10.5 01/28 [place] [facility] CHEMISTRY Glucose Lvl 57.0 01/28 NA <sup>7</sup>I [place] nterpretive Medical Data: Center Reference Ranges : 0 - 7 days : 41 - 90 mg/dL 7 days - 150 yrs : 70 - 99 mg/dL (fasting), based on the clinical recommendatio ns of the [employer]. CHEMISTRY BUN 21.0 7 - 22 01/28 Normal Medical Center CHEMISTRY Creatinine 0.7 0.5 - 1.4 01/28 Normal [facility] Medical Center CHEMISTRY Phosphorus 3.2 2.5 - 4.5 01/28 Normal Medical Center CHEMISTRY Magnesium 2.2 1.8 - 2.4 01/28 Normal [facility] Center CHEMISTRY Ca Norm 1.09 1.16 - 01/28 LOW [place] 1. Medical Center CHEMISTRY Ca Ion 1.06 1.16 - 01/28 [facility] [place] 1. Medical Center CHEMISTRY Ca Norm mgdL 4.36 4.65 - 01/28 [facility] [place] 5. Medical Center CHEMISTRY Ca Ion mgdL 4.24 4.65 - 01/28 [facility] [place] 5. Medical Center HEMATOLOGY Platelet 144.0 133 - 450 01/28 Normal Medical Center HEMATOLOGY MPV 10.4 7.4 - 10.4 01/28 Normal Medical Center HEMATOLOGY MCH 31.1 27.0 - 01/28 [facility] [place] 31.0 Medical Center HEMATOLOGY MCHC 33.3 32.0 - 01/28 [facility] [place] 36.0 Medical Center HEMATOLOGY RDW 16.0 11.5 - 01/28 [facility] [place] 14.5 Medical Center HEMATOLOGY Hct 32.3 36.0 - 01/28 [facility] [place] 48.0 Medical Center HEMATOLOGY MCV 93.5 81.0 - 01/28 Normal [place] 99.0 Medical Center HEMATOLOGY RBC 3.45 4.20 - 01/28 [facility] [place] 5.40 Medical Center HEMATOLOGY Hgb 10.7 12.0 - 01/28 LOW [place] 16.0 Medical Center HEMATOLOGY WBC 20.1 3.7 - 10.4 01/28 [facility] HEMATOLOGY Eosinophils 0.0 0.0 - 4.0 01/28 [place] [facility] HEMATOLOGY Monocytes 4.1 2.0 - 12.0 01/28 Normal [facility] HEMATOLOGY Segs-Bands # 18.0 1.5 - 8.1 01/28 [place] [facility] HEMATOLOGY Basophils 0.0 0.0 - 1.0 01/28 Normal [facility] HEMATOLOGY Lymphocytes 6.6 20.0 - 01/28 LOW [place] 40.0 Medical Center HEMATOLOGY Basophils # 0.0 0.0 - 0.2 01/28 [place] [facility] HEMATOLOGY Eosinophils 0.0 0.0 - 0.5 01/28 [place] [facility] HEMATOLOGY Monocytes # 0.8 0.0 - 0.8 01/28 [facility] [place] [facility] HEMATOLOGY Lymphocytes 1.3 1.0 - 5.5 01/28 [place] [facility] HEMATOLOGY Segs 89.3 45.0 - 01/28 HI [place] 75.0 Medical Center CHEMISTRY Osmolality 317.0 280 - 300 01/27 [facility] CHEMISTRY POC A pH 7.56 7.35 - 01/27 HI [place] 7.45 Medical Center CHEMISTRY POC A PO2 150.0 80 - 100 01/27 [facility] Center CHEMISTRY POC A Source ART 01/27 NA [facility] CHEMISTRY POC A Temp 37.0 01/27 NA [facility] CHEMISTRY POC A BE 4.0 -2-2 - 2 01/27 [facility] Center CHEMISTRY POC A O2 Sat 100.0 95.0 - 01/27 Normal [place] 100.0 [facility] Center CHEMISTRY POC A HCO3 25.0 22 - 26 01/27 Normal [facility] CHEMISTRY POC A PCO2 28.0 35 - 45 01/27 CRIT [facility] CHEMISTRY Osmolality 305.0 280 - 300 01/27 [facility] Medical Center HEMATOLOGY PTT 25.2 22.9 - 08/29 Normal <sup>12</sup> [facility] Interpretive Medical Data: Heparin Center Therapeutic Range: 57 - 92 Seconds HEMATOLOGY PT 15.8 12.0 - 01/27 [facility] HEMATOLOGY INR 1.26 0.85 - 01/27 [place] <sup>9</sup>I [facility] 06.17 nterpretive Medical Data: Center RECOMMENDED RANGES FOR PROTIME INR: 2.0-3.0 for most medical and surgical thromboemboli c states. 2.5-3.5 for artificial heart valves and recurrent embolism. INR SHOULD BE USED ONLY FOR PATIENTS ON STABLE ANTICOAGULANT THERAPY. HEMATOLOGY Eosinophils 0.0 0.0 - 4.0 01/27 Normal [facility] HEMATOLOGY Basophils 0.2 0.0 - 1.0 01/27 Normal [facility] HEMATOLOGY Eosinophils 0.0 0.0 - 0.5 01/27 Normal [facility] HEMATOLOGY Basophils # 0.0 0.0 - 0.2 01/27 Normal [facility] CHEMISTRY Osmolality 306.0 280 - 300 01/26 [facility] HEMATOLOGY Basophils # 0.0 0.0 - 0.2 01/26 Normal [facility] HEMATOLOGY Eosinophils 0.0 0.0 - 4.0 01/26 Normal [facility] HEMATOLOGY Eosinophils 0.0 0.0 - 0.5 01/26 Normal [facility] HEMATOLOGY Basophils 0.1 0.0 - 1.0 01/26 Normal [facility] HEMATOLOGY PTT 29.8 22.9 - 01/26 Normal <sup>13</sup> [facility] Interpretive Medical Data: Heparin Center Therapeutic Range: 57 - 92 Seconds HEMATOLOGY PT 15.4 12.0 - 01/26 [facility] HEMATOLOGY INR 1.22 0.85 - 01/26 [place] <sup>10</sup> [facility] s 06.17 Interpretive Medical Data: Center RECOMMENDED RANGES FOR PROTIME INR: 2.0-3.0 for most medical and surgical thromboemboli c states. 2.5-3.5 for artificial heart valves and recurrent embolism. INR SHOULD BE USED ONLY FOR PATIENTS ON STABLE ANTICOAGULANT THERAPY. CHEMISTRY POC A Glu 108.0 65 - 110 01/26 Normal [facility] CHEMISTRY POC A LA 0.8 0.5 - 2.2 01/26 Normal [facility] CHEMISTRY POC A Ca Ion 1.17 1.16 - 01/26 Normal [place] 1.30 [facility] CHEMISTRY POC A K 3.6 3.5 - 5.1 01/26 Normal [facility] CHEMISTRY POC A Na 140.0 135 - 145 01/26 Normal [facility] CHEMISTRY POC A PO2 80.0 80 - 100 01/26 Normal [facility] CHEMISTRY POC A PCO2 40.0 35 - 45 01/26 Normal [facility] CHEMISTRY POC A Source ART 01/26 NA [facility] CHEMISTRY POC A Temp 37.0 01/26 NA [facility] CHEMISTRY POC A pH 7.4 7. - 01/26 Normal [place] 7. [facility] CHEMISTRY POC A Hct 34.0 36.0 - 01/26 LOW [place] 48.0 [facility] CHEMISTRY POC A BE 0.0 -2-2 - 2 01/26 Normal [facility] CHEMISTRY POC A O2 Sat 96.0 95.0 - 01/26 Normal [place] 100.0 [facility] CHEMISTRY POC A HCO3 25.0 22 - 26 01/26 Normal [facility] CHEMISTRY POC A O2 Sat 96.0 95.0 - 01/26 Normal [place] 100.0 [facility] CHEMISTRY POC A K 3.6 3.5 - 5.1 01/26 Normal [facility] CHEMISTRY POC A LA 0.8 0.5 - 2.2 01/26 Normal [facility] CHEMISTRY POC A Glu 113.0 65 - 110 01/26 HI [facility] CHEMISTRY POC A Source ART 01/26 NA [facility] CHEMISTRY POC A Temp 37.0 01/26 NA [facility] CHEMISTRY POC A HCO3 25.0 22 - 26 01/26 Normal [facility] CHEMISTRY POC A PO2 79.0 80 - 100 01/26 LOW [facility] CHEMISTRY POC A PCO2 38.0 35 - 45 01/26 Normal [facility] CHEMISTRY POC A pH 7.42 7.35 - 01/26 Normal [facility] 7.45 [facility] CHEMISTRY POC A BE 0.0 -2-2 - 2 01/26 Normal [facility] CHEMISTRY POC A Ca Ion 1.22 1.16 - 01/26 Normal [place] 1.30 [facility] CHEMISTRY POC A Na 138.0 135 - 145 01/26 Normal [facility] CHEMISTRY POC A Hct 36.0 36.0 - 01/26 Normal [facility] 48.0 [facility] CHEMISTRY POC A Hct 41.0 36.0 - 01/26 Normal [facility] 48.0 [facility] CHEMISTRY POC A Na 140.0 135 - 145 01/26 Normal [facility] CHEMISTRY POC A Ca Ion 1.05 1.16 - 01/26 LOW [facility] 1.30 [facility] CHEMISTRY POC A K 3.6 3.5 - 5.1 01/26 Normal [facility] CHEMISTRY POC A LA 0.8 0.5 - 2.2 01/26 Normal [facility] CHEMISTRY POC A Glu 107.0 65 - 110 01/26 Normal [facility] BLOOD BANK Antibody Negative 01/26 Normal [facility] RESULTS Scrn (01/26/2011 09:00:00) ?? [facility] BLOOD BANK ABO/Rh O NEG 01/26 Unknown [facility] HEMATOLOGY PTT 28.2 22.9 - 01/26 [place] <sup>14</sup> [place] 35.[place] Interpretive Medical Data: Heparin Center Therapeutic Range: 57 - 92 Seconds HEMATOLOGY INR 1.24 0.85 - 01/26 [place] <sup>11</sup> [place] 1.17 Interpretive Medical Data: Center RECOMMENDED RANGES FOR PROTIME INR: 2.0-3.0 for most medical and surgical thromboemboli c states. 2.5-3.5 for artificial heart valves and recurrent embolism. INR SHOULD BE USED ONLY FOR PATIENTS ON STABLE ANTICOAGULANT THERAPY. HEMATOLOGY PT 15.6 12.0 - 01/26 [facility] [place] 14.7 [facility] CHEMISTRY CK MB Index 0.4 0.0 - 2.5 01/25 Normal [facility] CHEMISTRY CK MB 1.1 0.5 - 3.6 01/25 [facility] [facility] CHEMISTRY Myoglobin 141.0 25 - 72 01/25 [facility] CHEMISTRY Troponin-T <0.01 0.000 - 01/25 Normal [place] 0.[facility] CHEMISTRY Total CK 256.0 12 - 191 01/25 [facility] CHEMISTRY Total CK 219.0 12 - 191 01/25 [facility] CHEMISTRY Troponin-T <0.01 0.000 - 01/25 Normal [place] 0.[facility] CHEMISTRY CK MB Index 0.7 0.0 - 2.5 01/25 [facility] CHEMISTRY CK MB 1.5 0.5 - 3.6 01/25 [facility] CHEMISTRY Lactic Acid 2.4 0.5 - 2.2 01/25 HI [facility] Lvl [facility] HEMATOLOGY Target Cell Slight >None Seen 01/25 ABN [facility] as *ABN* /2010 Medical (01/24/2011 19:16:00) ?? Center HEMATOLOGY Bands 2.0 0.0 - 11.0 01/25 Normal [facility] HEMATOLOGY Plt Morph Normal 01/25 Normal [place] (01/24/2011 19:16:00) ?? [facility] Center CHEMISTRY Troponin-T <0.01 0.000 - 01/24 Normal [place] 0. [facility] CHEMISTRY Myoglobin 60.0 - 72 01/24 Normal [facility] CHEMISTRY Total CK 34.0 - 191 01/24 Normal [facility] Center BLOOD BANK Antibody Negative 01/24 Normal [facility] RESULTS Scrn (01/24/2011 03:15:00) ?? [facility] Center BLOOD BANK ABO/Rh O NEG 01/24 Unknown [place] RESULTS /2010 Medical Center BLOOD BANK Platelet Product available 01/24 Normal [place] RESULTS product (01/24/2011 03:15:00) ?? [facility] Center BLOOD BANK RBC product Product available 01/24 Normal [place] RESULTS (01/24/2011 03:15:00) ?? Medical Center CHEMISTRY CK MB Index 1.2 0.0 - 2.5 01/23 Normal [facility] CHEMISTRY CK MB 1.2 0.5 - 3.6 01/23 Normal [facility] CHEMISTRY Hgb A1C 8.7 01/23 [...] CHEMISTRY Troponin-I <0.02 0.00 - 01/23 Normal [facility] 0.40 Medical Center URINALYSIS UA Ketones TR 01/23 NA Medical Center URINALYSIS UA ?? 0.1 - 1.0 01/23 [facility] Urobilinogen [facility] Center URINALYSIS UA Sq Epi Occasional /LPF >Few [facility] Center URINALYSIS UA WBC <1.0 0 - 5 01/23 Normal [facility] URINALYSIS UA Mucus Few /LPF >None [facility]23 [facility] (01/23/2011 05:29:00[facility] ?? Center URINALYSIS UA RBC <1.0 0 - 2 01/23 Normal [facility] Center URINALYSIS UA Protein Negative mg/dL >Negative 01/23 Normal [facility] (01/23/2011 05:29:00) ?? Medical Center URINALYSIS UA Nitrite Negative >Negative [place]23[place] 05:29:00[place] ?? [facility] Center URINALYSIS UA Leuk Est Negative >Negative 01/23 Normal [place] (01/23/2011 05:29:00) ?? Medical Center URINALYSIS UA Bili Negative >Negative [facility]/23 [facility] 05:29:00[facility] ?? Center URINALYSIS UA Glucose 150 mg/dL >Negative 01/23 ABN [place] as *ABN Medical (01/23/2011 05:29:00) ?? Center URINALYSIS UA Blood Negative >Negative 01/23 Normal [facility] (01/23/2011 05:29:00) ?? [facility] Center URINALYSIS UA pH 5.0 5.0 - 8.0 01/23 Normal [facility] Center URINALYSIS UA Spec Grav 1.01 <<=1.030 [place]/23 [place] [facility] Center URINALYSIS UA Turbidity Clear >Clear 01/23 Normal [facility] (01/23/2011 05:29:00) ?? [facility] Center URINALYSIS UA Color Yellow >Yellow 01/23 NA [facility] *NA* Medical (01/23/2011 05:29:00) ?? Center BACTERIAL - MRSA by PCR Negative 1 01/23 Normal <sup>1</sup>I [facility] SEROLOGY (01/23/2011 05:00:00) ?? nterpr etive Medical Data: Center INTERPRETATIO N: [...] an infectious diseases specialist. Microbiolog Culture: 01/23 [facility] y [facility] [employer] Center r Screen Pathology Reports No Data Provided for This Section Diagnostic Reports Report Value Date Source Esophagus BA swallow EXAM: FLUOROSCOPY MODIFIED BARIUM SWALLOW 0 02/24/2020 [facility] Medical function video DX DATE: 02/24/2020 7:00 CDT Cente r INDICATION: - Swallow eval. ADDITIONAL INFORMATION: Patient has history of m ultiple sclerosis. COMPARISON: None. TECHNIQUE: Oral barium contr ast of differing consistencies was given to the patient to assess swallowing mechanism. The study was performed in conjunction with speech pathology. FLUOROSCOPY TIME: 1 minute 51 seconds FLUOROSCOPY DOSE: 12.72 mGy DISCUSSION: The patient was given barium contrast of differe nt consistencies. Thin barium: Administered wi th spoon and cup. Patient had flash penetration with spoon and aspiration with cup. Exam was repeated with chin tuck and no aspiration was seen. [place] barium: Normal swallowing with spoon and cup and straw. Pudding barium: Multiple swallows needed to pass contrast bolus. Solid with barium: Normal. IMPRESSION: 1. Aspiration of thin bariu m in normal position. No aspiration with thin barium with chin tucked. 2. Normal swallowing with nectar pudding and so lid barium. 3. Please also see detailed chart note by cristhian alston pathology. Chest 1view DX EXAM[facility], [address] INDICATION: - rising white count and blood suga rs , concern for infection COMPARISON: 02/15/2020 TECHNIQUE: AP chest FINDINGS: The tip of the Port-A-Cath r emains in the region of the left brachiocephalic vein. Lower cervical spine hardware is again noted. Ventriculoperitoneal shunt tubing is again seen across the left chest. The lungs are clear. Previou s left lower lobe atelectasis has resolved. No focal lung consolidation is seen. No pneumothorax or pleural effusion has developed. The cardiac silhouette is stable in size. Aortic calcifications are again noted. IMPRESSION: Decreased atelectasis in the left lower lung, and no new abnormality in the chest. Chest 2 views DX EXAM: XR CHEST 2 VIEWS 02/15/2020 [facility] DATE: 02/15/2020 19:44 CDT Center INDICATION: Respiratory distress - Possible MG e xacerbation COMPARISON: 12/14/2019 TECHNIQUE: PA and lateral chest radiographs IMPRESSION: 1. Left DEPUTY INSURANCE COMMISSIONER shunt and left Port-A-Cath are again seen. 2. Stable cardiomediastinal silhouette. Calcifi ed aortic knob. 3. Residual prominence of bilateral interstitia l markings. 4. No definite pleural effusion. No pneumothora x. 5. Overlying breast soft tissue projecting over the left lower hemithorax. 6. Post surgical changes of the lower cervical spine. 7. Age-related degenerative changes of the skel etal structures. Spine thoracic 2 EXAM: XR CERVICAL SPINE 2 VIEWS 01/05/2020 [facility] Jorge Alberto views DX EXAM: XR thoracic SPINE 2 VIEWS DATE: 01/05/2020 11:34 CDT INDICATION: - S12.600A Un specified displaced fracture of seventh cervical vertebra, initial encounter for closed fracture COMPARISON: MRI dated November 22, 2019 TECHNIQUE: AP and lateral views of the cervical spine and thoracic spine FINDINGS: Status post posterior fusion C4-T1 images of translaminar screws at C4 and C5 as well as the pancreas pedicle screws at C6 and C7. Additional screw fixation has been anterior inserted through C6 and C7. No hardware complication. S evere degenerative changes seen throughout the cervical spine. Thoracic spine: Alignment an d vertebral body heights remain intact. 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 No prevertebral or paraspinous soft tissue abnor mality is identified. IMPRESSION: 1. Posterior fusion and ante rior fusion and the cervical spine as described without complications. 2. Ankylosis of the spine. Spine cervical 2 or 3 EXAM: XR CERVICAL SPINE 2 VIEWS 01/05/2020 [facility] Jorge Alberto view DX EXAM: XR thoracic SPINE 2 VIEWS DATE: 01/05/2020 11:34 CDT INDICATION: - S12.600A Un specified displaced fracture of seventh cervical vertebra, initial encounter for closed fracture COMPARISON: MRI dated November 22, 2019 TECHNIQUE: AP and lateral views of the cervical spine and thoracic spine FINDINGS: Status post posterior fusion C4-T1 images of translaminar screws at C4 and C5 as well as the pancreas pedicle screws at C6 and C7. Additional screw fixation has been anterior inserted through C6 and C7. No hardware complication. S evere degenerative changes seen throughout the cervical spine. Thoracic spine: Alignment an d vertebral body heights remain intact. 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 No prevertebral or paraspinous soft tissue abnor mality is identified. IMPRESSION: 1. Posterior fusion and ante rior fusion and the cervical spine as described without complications. 2. Ankylosis of the spine. Esophagus BA swallow EXAM: FLUOROSCOPY MODIFIED BARIUM SWALLOW 0 12/16/2019 [facility] function video DX DATE: 12/16/[address] INDICATION: - DYSPHAGIA. ADDITIONAL INFORMATION: None. COMPARISON: Barium swallow dated December 08, 2019. TECHNIQUE: Oral barium contr ast of differing consistencies was given to the patient to assess swallowing mechanism. The study was performed in conjunction with speech pathology. FLUOROSCOPY TIME: 2 minutes 17 seconds FLUOROSCOPY DOSE: 21.45 mGy DISCUSSION: The patient was given barium contrast of differe nt consistencies. Thin barium: Deep penetration without aspiration . [place] barium: Occasional flash penetration with out aspiration.. Pudding barium: Normal. Solid with barium: Normal. IMPRESSION: 1. Deep penetration without aspiration of thin barium. 2. Occasional flash penetration without aspirat ion of nectar barium. 3. Normal swallowing of pudding and solid consi stency barium. 4. Please also see detailed chart note by cristhian rowan. Abdomen 1 v for EXAM: XR ABDOMEN 1 VIEW 12/14/2019 [facility] Medical Placement DX DATE: 12/14/2019 8:54 AM CDT Cent er INDICATION: - post ngt ADDITIONAL INFORMATION: None. COMPARISON: None. TECHNIQUE: Limited AP view of the abdomen for tube placement assessment. Number of images: 1 FINDINGS: Transesophageal feeding tube: None Transesophageal suction tube: Side port and tip overlie the gastric fundus. Other tubes, lines and hardw are: DEPUTY INSURANCE COMMISSIONER shunt catheter tip overlies the left lower quadrant. Retained oral contrast mater ial seen in the colon. There is left retrocardiac airspace opacity. This may represent singly or any combination of layering pleural effusion, subsegmental atelectasis and/or pneumonia. IMPRESSION: 1. Tube positions as above. Chest 1view DX THIS IS A PRELIMINARY REPO RT BY THE ON-CALL RESIDENT. CHANGES TO THIS PRELIMINARY REPORT MAY OCCUR IN AN ADDITIONAL PRELIMINARY OR FINALIZED VERSION. 12/14/2019 [facility] EXAM: XR CHEST 1 VIEW Center DATE: December 14, 2019 INDICATION: Tube placement COMPARISON: Chest x-ray dated December 12, 2019. TECHNIQUE: AP chest IMPRESSION: 1. Enteric tube side-port p rojects over the stomach. The tip is out of view. Left-sided Port-A-Cath stable in position with the tip superimposing over the left brachiocephalic vein. 2. Persistent biapical capping similar to prior study. 3. Cardiomediastinal silhouette is enlarged, un changed. 4. Bilateral basal airspace opacities left more than right may represent atelectasis, pulmonary edema, or pneumonia. 5. Bilateral small pleural effusions. 6. Osseous structures are u nchanged. ACDF changes are seen in the cervical spine. The left humeral head subluxation seen in prior study is no longer visualized. 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 ADDITIONAL INFORMATION: None. COMPARISON: None. TECHNIQUE: Oral barium contr ast of differing consistencies was given to the patient to assess swallowing mechanism. The study was performed in conjunction with speech pathology. FLUOROSCOPY TIME: 55 FLUOROSCOPY DOSE: 7.99 mGy DISCUSSION: The patient was given barium contrast of differe nt consistencies. Thin barium: Deep penetration. [place] barium: Deep penetration. Pudding barium: Normal. IMPRESSION: 1. Deep penetration with li quid consistency. No aspiration or penetration with pudding consistency. 2. Please also see detailed chart note by cristhian alston pathology. Chest 1view DX EXAM: XR CHEST 1 VIEW 12/12/2019 [facility] DATE: 12/12/2019 7:44 CDT Center INDICATION: - respiratory distress. TECHNIQUE: Chest 1 view FINDINGS: Comparison is made to . The cardiomediastinal silhou ette is prominent but unchanged. There is cardiomegaly. The mediastinum is widened but unchanged. This presumably represents stable hematoma. There is biapical capping which is similar to December 05. C-spine fusion hardware part ially included on this study. Life support lines and tubes remain in place. A left pleural effusion obscures the left base. There are bilateral retrocar diac opacities which may be due to layering pleural effusion and/or airspace opacities such as pneumonia or atelectasis. The upper lungs are clear. There is subluxation of the left humeral head. IMPRESSION: 1. Stable widening of the me diastinum with biapical capping, presumably representing hematoma that is unchanged since December 05. 2. New left pleural effusion. 3. Bilateral retrocardiac op acities, increased on the left. This could be due to atelectasis or consolidation such as aspiration or pneumonia. Abdomen AP DX EXAM: XR ABDOMEN 1 VIEW 12/11/2019 [facility] DATE: 12/11/2019 4:39 PM CDT [facility] er INDICATION: - Confirm NG tube placement ADDITIONAL INFORMATION: None. COMPARISON: KUB 12/09/2019 TECHNIQUE: Single frontal image of the abdomen. FINDINGS: Lines and tubes: NG tube tip projects over the left upper quadrant and likely region of the gastric fundus with sidehole near the GE junction. DEPUTY INSURANCE COMMISSIONER shunt catheter with tip overlying the right u pper quadrant. Right upper quadrant surgical clips. Lower thorax: Enlarged cardiac silhouette with l eft retrocardiac opacities. Right basilar airspace opacities. Bowel: Gaseous distention of the colon and small bowel loops. Solid organs: No abnormal mass or organomegaly s een. Calcifications: No abnormal calcifications found . Bones: Degenerative changes. IMPRESSION: 1. NG tube as described. Abdomen AP DX EXAM: XR ABDOMEN 1 VIEW 12/09/2019 [facility] DATE: 12/09/2019 12:36 CDT Center INDICATION: - evaluate feeding tube position ADDITIONAL INFORMATION: 74 y o female with hx of dementia presenting with fall. Found to have cervical hyperextension injury as well as T4 vertebral body fracture. COMPARISON: Extra abdomen dated 12/08/2019 2008 hours. TECHNIQUE: AP view of the a bdomen for tube placement assessment. Number of images: 1 FINDINGS: Feeding tube: None. Enteric suction tube: NG tub e with tip in proximal stomach and side port near GE junction. Other tubes, lines and hardw are: Again seen is a DEPUTY INSURANCE COMMISSIONER shunt tubing coursing over the left hemithorax. There is tubing over the right upper quadrant. Surgical clips in the right upper quadrant. Lower thorax: Bilateral patc hy airspace opacities, left much greater than right. Abdomen and bowel: Normal. Bones and soft tissues: No acute abnormality. IMPRESSION: 1. NG tube with tip in prox imal stomach and side port near GE junction. Consider advancing. 2. Bilateral patchy airspace opacities. Abdomen AP DX EXAM: XR ABDOMEN 1 VIEW 12/08/2019 [facility] DATE: 12/08/2019 [facility]: - Assess feeding tube placement ADDITIONAL INFORMATION: None. COMPARISON: KUB 12/15/2019 TECHNIQUE: Single frontal image of the abdomen. FINDINGS: Lines and tubes: NG tube tip projects over th e gastric fundus with sidehole near the GE junction. Likely DEPUTY INSURANCE COMMISSIONER shunt tubing courses over the left hem ithorax and left abdomen. A tubing courses over the right upper quadrant. Overlying electrocardiogram leads. Right upper quadrant surgical clips. Lower thorax: Enlarged cardiac silhouette. Left retrocardiac opacities. Bowel: Nonobstructive bowel gas pattern. Some contrast within the small bowel from recent modified barium study. Solid organs: No abnormal mass or organomegaly s een. Calcifications: No abnormal calcifications found . Bones: Unchanged. IMPRESSION: 1. NG tube as described. 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 ADDITIONAL INFORMATION: 74-y ear-old female with history of dementia, myasthenia gravis, cervical laminectomy and posterior spinal fusion status post extubation on December 06, 2019. COMPARISON: None. TECHNIQUE: Oral barium contr ast of differing consistencies was given to the patient to assess swallowing mechanism. The study was performed in conjunction with speech pathology. FLUOROSCOPY TIME: 1 minute 59 seconds FLUOROSCOPY DOSE: 16.29 mGy DISCUSSION: The patient was given barium contrast of differe nt consistencies. Thin barium: Deep penetration. [place] barium: Deep penetration. Pudding barium: Deep penetration. IMPRESSION: 1. Deep penetration with thin, nectar, and pudd ing barium. 2. Please also see detailed chart note by cristhian alston pathology. Chest 1view DX EXAM: [facility]: [facility] 12[facility]08 T Center INDICATION: intubated, f/u - intubated f/u COMPARISON: Chest radiograph dated 11/24/2019. TECHNIQUE: AP chest. FINDINGS: Lines, tubes and hardware: I nterval removal of enteric feeding catheter and interval placement of gastric suction catheter which extends below the diaphragm with side port below the gastroesophageal ashely ction. Left subclavian chest wall port in stable position. Ventriculoperitoneal shunt overlies the left hemithorax. Monitor leads overlie the patient. Lungs and pleura: Pulmonary venous hypertension and interstitial pulmonary edema are present. Bibasilar atelectasis. Small left pleural effusion. Heart and mediastinum: The h eart is enlarged. Atherosclerotic plaque is noted involving the aortic arch. The mediastinal contours are otherwise unremarkable. Bones and soft tissues: Scat tered degenerative changes without evidence of acute osseous abnormality. Partially visualized postoperative changes of the cervical spine. IMPRESSION: Findings compatible with mil d congestive heart failure/volume overload with small left pleural effusion. Abdomen AP DX EXAM: XR ABDOMEN 1 VIEW 12/05/2019 [facility] DATE: 12/05/2019 20:36 T Center INDICATION: - NG tube placement ADDITIONAL INFORMATION: None. COMPARISON: None. TECHNIQUE: AP abdomen. FINDINGS: Lines, tubes and hardware: P artially visualized Port-A-Cath in left upper chest. EKG leads overlie the patient. Cholecystectomy clips in right upper quadrant of the abdomen. There is a catheter projecti ng over the left hemithorax, may represent ventriculoperitoneal shunt. No discontinuity or calcification. NG tube tip projects over the region of gastric body with side-port approximately 5 cm below the gastroesophageal junction. . Lower thorax: Cardiomegaly. Left pleural effusio n. Abdomen and bowel: Normal. Bones and soft tissues: No acute abnormality. IMPRESSION: 1. NG tube side-port at the gastroesophageal junction. Recommend further advancement 2. Cardiomegaly with left pleural effusion. 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 ADDITIONAL INFORMATION: None. COMPARISON: None. TECHNIQUE: Oral barium contr ast of differing consistencies was given to the patient to assess swallowing mechanism. The study was performed in conjunction with speech pathology. FLUOROSCOPY TIME: 44 seconds FLUOROSCOPY DOSE: 6.75 mGy DISCUSSION: The patient was given barium contrast of differe nt consistencies. Thin barium: Normal. [place] barium: Normal. Pudding barium: Normal. Solid with barium: Normal. IMPRESSION: 1. Normal swallowing withou t aspiration or penetration of thin, nectar, pudding, and solid with barium. 2. Please also see detailed chart note by cristhian alston pathology. Ext Lower Venous EXAM: US BILATERAL LOWER EXTREMITY VENOUS DOPPL ER 11/28/2019 [facility] [employer] Doppler Bilat US DATE: 11/28/2019 at 1108 hours C enter INDICATION: -Evaluate for dvt, lower extremity swelling ADDITIONAL INFORMATION: None. COMPARISON: None. TECHNIQUE: Multiplanar sussy mikey, color Doppler and spectral Doppler ultrasound of the bilateral lower extremity veins. FINDINGS: Right Thigh Veins: Common Femoral: Patent. Femoral (SFV): Patent. Popliteal: Patent. Proximal Greater Saphenous: Patent. Proximal Deep Femoral Veins: Patent. Right posterior tibial veins: Patent Right peroneal veins: Not seen. Left Thigh Veins: Common Femoral: Patent. Femoral (SFV): Patent. Popliteal: Patent. Proximal Greater Saphenous: Patent. Proximal Deep Femoral Veins: Patent. Left posterior tibial veins: Patent Left peroneal veins: Patent Other: None. IMPRESSION: No deep venous thrombosis (DVT). Abdomen 1 v for EXAM: XR ABDOMEN 1 VIEW 11/26/2019 [employer] [facility] DX DATE: 11/26/2019 at 0119 hours Ce nter INDICATION: -Dobbhoff tube placement ADDITIONAL INFORMATION: None. COMPARISON: None. TECHNIQUE: Limited AP view of the abdomen for tube placement assessment. Number of images: 1. FINDINGS: Feeding tube: A feeding tube tip overlies the se cond portion of the duodenum. Enteric suction tube: None. Other tubes, lines and hardware: * DEPUTY INSURANCE COMMISSIONER shunt. * Partially visualized port catheter. * EKG leads overlie the patient. * Cholecystectomy clips in the right upper quad rant. Other: No other changes. IMPRESSION: 1. Feeding tube tip overlies the second portion of the duodenum. Chest 1view DX EXAM: XR CHEST 1 VIEW 11/24/2019 [facility] edical DATE: 11/24/2019 3:00 CDT Center INDICATION: - AM CXR. TECHNIQUE: Chest 1 view FINDINGS: Comparison is made to November 21. Cardiomediastinal silhouette is unchanged. There is a new Dobbhoff feeding tube in place. Other life support lines and tubes remain in place. Mild left lower lobe platelike atelectasis. No p leural effusions. IMPRESSION: Left lower lobe platelike atelectasi s. Chest 1view DX EXAM: XR CHEST 1 VIEW 11/22/2019 [facility] edical DATE: 11/22/2019 20:26 CDT Center INDICATION: - evaluation for cardiac clearance COMPARISON: 2018 TECHNIQUE: AP chest FINDINGS: Lines and tubes: Left-sided Port-A-Cath has its tip in the brachycephalic region. Catheter overlying the left hemithorax is likely represents a ventricle peritoneal shunt. Lungs and pleura: Pain or le ft basilar ectatic changes are present. Small left pleural effusion is also present. Heart and mediastinum: The h eart size is normal for technique. The mediastinal contours are normal. Bones: No acute bony abnormality is identified. IMPRESSION: 1. Left basilar atelectatic changes an d a left pleural effusion are present. Spine lumbar wo EXAM: MRI CERVICAL SPINE WITHOUT CONTRAST 2019 [facility] contrast MRI EXAM: MR thoracic spine without contrast Center EXAM: MRI lumbar spine without contrast DATE: 11/22/2019 10:36 AM CDT INDICATION: 74 years old Female patient with his tory of - fractures on ct. COMPARISON: Fall TECHNIQUE: Multiplanar, mult isequence noncontrast MR imaging of the cervical, thoracic and lumbar spine spine. FINDINGS: Limited motion degraded exam and Limited exam due to his poor [id number] ratio. MR cervical spine: Only axial gradient echo seq uences of the cervical spine are acquired with lots of motion artifacts and poor [id number] ratio. Evaluation of the cord signal intensity is markedly limited due to mot ion artifact and poor signal -to-noise ratio. There is suggestion of STIR hyperintensity of the cord extending from C5-C6 to T1-T2 may represent cord injury. 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 Superimposed multilevel endplate degenerative changes resulting in multilevel moderate to spinal canal stenosis from C2-C3 to C5-C6. There is severe spina l canal narrowing at C6-C7 resulting in cord compression. Multilevel anterior bridging osteophytes are see n from C3-C4 to C6-C7. Acute hyperextension injury at C6-C7 resulting in anterior widening of the disc space at this level and acute oblique displaced fracture with extension from the superior to the inferior endplates of the C7 vertebral body. There is anterior translation and dislocation of the posterior elements at C6-C7 and breech of the spinolaminar line. Abnormal STIR hyperintensity in the disc at C6-C7 compatible wit h disc injury and hematoma. There is disruption of the anterior longitudinal ligament at this level. There is large prevertebral hematoma from the cranial cervical junction to the thoracic spine. There is evidence of injury of the anterior longitudinal ligament. Abnormal signal in the posterior paraspi nal soft tissues compatible with ligamentous injury. Evaluation for acute epidural hematoma is limited due to motion artifacts. MR thoracic spine: Acute optic fractures of the T3 and T4 vertebral bodies are present in the concurrent outside thoracic spine. Mildly exaggerated kyphosis of the thoracic vertebrae. 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 Congenital spinal canal narrowing throughout the thoracic spine noted. Multiple additional fracture s are better described in the report of CT thoracic spine images in the same day. MRI lumbar spine: Anterior wedging compression deformity of the L2 vertebral body of age indeterminate resulting in about 50% disc height loss. This finding is new compared to MRI from 02/22/2019. Diffuse congenital spina l canal narrowing of the lum bar spine. Multilevel endplate degenerative changes contributing to severe spinal canal narrowing at L3-L4 and L4-L5. IMPRESSION: 1. Limited motion degraded e xam and Limited exam due to poor crtjyh-dy-twifq ratio, as detailed above. 2. Evaluation of the cord si gnal intensity is markedly limited due to motion artifacts and poor uvbgop-ue-ikegu ratio. There is suggestion of STIR hyperintensity of the cord extending from C5-C6 to T1-T2 concerning for cord injury. 3. Acute hyperextension and fracture dislocation injury at C6-C7 with widening of the anterior aspect of the disc space and anterior translation/dislocation of the posterior elements. There is oblique f ractures through the superio r and inferior endplates of the C7 at this level. Evidence of disc injury and prevertebral hematoma. 4. Large prevertebral hemato ma from cranial cervical junction to the thoracic spine compatible with ligamentous injury. 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 Multilevel anteri or bridging osteophytes throughout the cervical spine, as detailed above. 5. Anterior wedging compress ion deformity of the L2 vertebral body of age indeterminate. This finding is new compared to MRI from 02/22/2019. Diffuse congenital spinal canal narrowing of the lumbar spine . Superimposed degenerative changes resulting in severe spinal canal stenosis at L3-L4 and L4-L5. Spine Thoracic wo EXAM: MRI CERVICAL SPINE WITHOUT CONTRAST 10/31 [facility] contrast MRI EXAM: MR thoracic spine without contrast Center EXAM: MRI lumbar spine without contrast DATE: 11/22/2019 10:36 AM CDT INDICATION: 74 years old Female patient with his tory of - fractures on ct. COMPARISON: Fall TECHNIQUE: Multiplanar, mult isequence noncontrast MR imaging of the cervical, thoracic and lumbar spine spine. FINDINGS: Limited motion degraded exam and Limited exam due to his poor hzbmpw-tx-yzrma ratio. MR cervical spine: Only axial gradient echo seq uences of the cervical spine are acquired with lots of motion artifacts and poor fvsneb-me-exsqt ratio. Evaluation of the cord signal intensity is markedly limited due to mot ion artifact and poor signal -to-noise ratio. There is suggestion of STIR hyperintensity of the cord extending from C5-C6 to T1-T2 may represent cord injury. 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 Superimposed multilevel endplate degenerative changes resulting in multilevel moderate to spinal canal stenosis from C2-C3 to C5-C6. There is severe spina l canal narrowing at C6-C7 resulting in cord compression. Multilevel anterior bridging osteophytes are see n from C3-C4 to C6-C7. Acute hyperextension injury at C6-C7 resulting in anterior widening of the disc space at this level and acute oblique displaced fracture with extension from the superior to the inferior endplates of the C7 vertebral body. There is anterior translation and dislocation of the posterior elements at C6-C7 and breech of the spinolaminar line. Abnormal STIR hyperintensity in the disc at C6-C7 compatible wit h disc injury and hematoma. There is disruption of the anterior longitudinal ligament at this level. There is large prevertebral hematoma from the cranial cervical junction to the thoracic spine. There is evidence of injury of the anterior longitudinal ligament. Abnormal signal in the posterior paraspi nal soft tissues compatible with ligamentous injury. Evaluation for acute epidural hematoma is limited due to motion artifacts. MR thoracic spine: Acute optic fractures of the T3 and T4 vertebral bodies are present in the concurrent outside thoracic spine. Mildly exaggerated kyphosis of the thoracic vertebrae. 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 Congenital spinal canal narrowing throughout the thoracic spine noted. Multiple additional fracture s are better described in the report of CT thoracic spine images in the same day. MRI lumbar spine: Anterior wedging compression deformity of the L2 vertebral body of age indeterminate resulting in about 50% disc height loss. This finding is new compared to MRI from 02/22/2019. Diffuse congenital spina l canal narrowing of the lum bar spine. Multilevel endplate degenerative changes contributing to severe spinal canal narrowing at L3-L4 and L4-L5. IMPRESSION: 1. Limited motion degraded e xam and Limited exam due to poor rocmth-rq-gfwha ratio, as detailed above. 2. Evaluation of the cord si gnal intensity is markedly limited due to motion artifacts and poor hqmcij-fm-llvvp ratio. There is suggestion of STIR hyperintensity of the cord extending from C5-C6 to T1-T2 concerning for cord injury. 3. Acute hyperextension and fracture dislocation injury at C6-C7 with widening of the anterior aspect of the disc space and anterior translation/dislocation of the posterior elements. There is oblique f ractures through the superio r and inferior endplates of the C7 at this level. Evidence of disc injury and prevertebral hematoma. 4. Large prevertebral hemato ma from cranial cervical junction to the thoracic spine compatible with ligamentous injury. 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 Multilevel anteri or bridging osteophytes throughout the cervical spine, as detailed above. 5. Anterior wedging compress ion deformity of the L2 vertebral body of age indeterminate. This finding is new compared to MRI from 02/22/2019. Diffuse congenital spinal canal narrowing of the lumbar spine . Superimposed degenerative changes resulting in severe spinal canal stenosis at L3-L4 and L4-L5. Spine cervical wo EXAM: MRI CERVICAL SPINE WITHOUT CONTRAST 10/31 [facility] contrast MRI EXAM: MR thoracic spine without contrast Center EXAM: MRI lumbar spine without contrast DATE: 11/22/2019 10:36 AM CDT INDICATION: 74 years old Female patient with his tory of - fractures on ct. COMPARISON: Fall TECHNIQUE: Multiplanar, mult isequence noncontrast MR imaging of the cervical, thoracic and lumbar spine spine. FINDINGS: Limited motion degraded exam and Limited exam due to his poor jocugq-ww-ngcec ratio. MR cervical spine: Only axial gradient echo seq uences of the cervical spine are acquired with lots of motion artifacts and poor ksfxtr-ev-wodya ratio. Evaluation of the cord signal intensity is markedly limited due to mot ion artifact and poor signal -to-noise ratio. There is suggestion of STIR hyperintensity of the cord extending from C5-C6 to T1-T2 may represent cord injury. 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 Superimposed multilevel endplate degenerative changes resulting in multilevel moderate to spinal canal stenosis from C2-C3 to C5-C6. There is severe spina l canal narrowing at C6-C7 resulting in cord compression. Multilevel anterior bridging osteophytes are see n from C3-C4 to C6-C7. Acute hyperextension injury at C6-C7 resulting in anterior widening of the disc space at this level and acute oblique displaced fracture with extension from the superior to the inferior endplates of the C7 vertebral body. There is anterior translation and dislocation of the posterior elements at C6-C7 and breech of the spinolaminar line. Abnormal STIR hyperintensity in the disc at C6-C7 compatible wit h disc injury and hematoma. There is disruption of the anterior longitudinal ligament at this level. There is large prevertebral hematoma from the cranial cervical junction to the thoracic spine. There is evidence of injury of the anterior longitudinal ligament. Abnormal signal in the posterior paraspi nal soft tissues compatible with ligamentous injury. Evaluation for acute epidural hematoma is limited due to motion artifacts. MR thoracic spine: Acute optic fractures of the T3 and T4 vertebral bodies are present in the concurrent outside thoracic spine. Mildly exaggerated kyphosis of the thoracic vertebrae. 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 Congenital spinal canal narrowing throughout the thoracic spine noted. Multiple additional fracture s are better described in the report of CT thoracic spine images in the same day. MRI lumbar spine: Anterior wedging compression deformity of the L2 vertebral body of age indeterminate resulting in about 50% disc height loss. This finding is new compared to MRI from 02/22/2019. Diffuse congenital spina l canal narrowing of the lum bar spine. Multilevel endplate degenerative changes contributing to severe spinal canal narrowing at L3-L4 and L4-L5. IMPRESSION: 1. Limited motion degraded e xam and Limited exam due to poor lwtxlz-gn-tfrfq ratio, as detailed above. 2. Evaluation of the cord si gnal intensity is markedly limited due to motion artifacts and poor umgkiv-tq-vjbsv ratio. There is suggestion of STIR hyperintensity of the cord extending from C5-C6 to T1-T2 concerning for cord injury. 3. Acute hyperextension and fracture dislocation injury at C6-C7 with widening of the anterior aspect of the disc space and anterior translation/dislocation of the posterior elements. There is oblique f ractures through the superio r and inferior endplates of the C7 at this level. Evidence of disc injury and prevertebral hematoma. 4. Large prevertebral hemato ma from cranial cervical junction to the thoracic spine compatible with ligamentous injury. 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 Multilevel anteri or bridging osteophytes throughout the cervical spine, as detailed above. 5. Anterior wedging compress ion deformity of the L2 vertebral body of age indeterminate. This finding is new compared to MRI from 02/22/2019. Diffuse congenital spinal canal narrowing of the lumbar spine . Superimposed degenerative changes resulting in severe spinal canal stenosis at L3-L4 and L4-L5. Esophagram w Water EXAM: FLUOROSCOPY ESOPHAGRAM 11/22/2019 [employer] Soluble Contrast DX DATE: 11/22/2019 9:[address] INDICATION: - r/o esophagea l injury s/p fall. Outside imaging concerning for periesophageal stranding. ADDITIONAL INFORMATION: None. COMPARISON: CT chest abdomen pelvis 11/22/2019 at 0949 hours TECHNIQUE: Water-soluble con trast esophagram was performed using single contrast technique. Exam quality limited by patient position/inability to move. FLUOROSCOPY TIME: 1 minute 35 seconds FLUOROSCOPY DOSE: 48.2 mGy DISCUSSION: Preliminary radiograph: A le ft chest wall port catheter tip projects over the mid SVC. Swallowing: Normal. Esophagus: Motility: Normal. Anatomy: No filling defects, mucosal irregularities, obstructions or extrinsic compressions identified. Hiatal hernia: None. Gastroesophageal reflux: Not visualized. IMPRESSION: Under the limitations of the study, no esophagea l perforation was identified. Trauma EXAM: CT CHEST WITH CONTRAST 11/22/2019 [facility] Chest/Abd/Pelvis w IV EXAM: CT ABDOMEN AND PELVIS WITH CONTRAST Center contrast CT DATE: 11/22/2019 5:47 CDT INDICATION: pain s/p trauma - pain s/p trauma COMPARISON: CT cervical spin e 11/21/2019, CT chest 11/22/2019, CT lumbar spine 11/21/2019, CT abdomen pelvis 02/19/2019 TECHNIQUE: Volumetric CT of the chest, abdomen and pelvis is acquired following intravenous administration of contrast. Axial, coronal and sagittal images are provided. Multiplanar reformats of the ribs were obtained. IV contrast: 150 mL Omnipaque 350 Oral contrast: None. DLP: 2500 mGy-cm UT SECTION: ER FINDINGS: Lines and tubes: A left subc lavian port catheter tip terminates at the left subclavian vein. [employer] shunt tubing terminates in the upper peritoneal cavity. Lower Neck: Mild fat strandi ng is present in the right supraclavicular soft tissues. Thoracic Aorta and Mediastin um: There is unchanged right mediastinal hematoma tracking along the trachea, and inferiorly towards the right hilum. There is no thoracic aortic injury. The heart is mildly enlarged. There is no excessive pericardial flui d. Lungs, Pleura, Diaphragm: No pulmonary contusions. There are trace bilateral pleural effusions. There is no pneumothorax. Thin-walled pulmonary cysts are present at the left lung base which may be infec tious or inflammatory in clemencia ology. Scattered subsegmental atelectasis is present. No diaphragmatic injury. Liver and biliary tree: No i njury. Mildly prominent biliary ducts are likely related to prior cholecystectomy. Gallbladder: Surgically absent. Pancreas: No injury. Spleen: Normal. No injury. Adrenals: Normal. No injury. Kidneys and ureters: No inju ry. Multiple bilateral cysts and subcentimeter hypodensities are present. The left kidney is asymmetrically smaller in size. Bladder: Normal. No injury. Reproductive organs: No injury. Uterine fibroid is noted. Gastrointestinal tract: Normal. No bowel injury. Peritoneum and retroperitoneum: No fluid collect ions or free air. Lymph nodes: Normal. Vasculature: No active contr ast extravasation. Scattered atherosclerosis is present. The IVC is unremarkable. Aberrant right subclavian artery is again noted. Spine/ Bones: Again seen are hyperextension injury at C7 and T4 vertebral bodies. At L2 vertebral body, there is unchanged superior endplate wedge compression fracture demonstrating 40% height loss, with associated sclerosis along the superior endplate. Bridging syndesmophyte forma tion is present throughout the thoracic spine, suspicious for spondyloarthropathy. Moderate degenerative disc height loss is present at L5-S1. Severe facet arthropathy is pre sent at L3-S1. There is generalized decreased rubia ne mineral density. Soft tissues: Soft tissue st randing present in the right supraclavicular region. Small fat-containing ventral abdominal wall hernia is present. IMPRESSION: 1. Unchanged hyperextension injuries at C7 and T4 vertebral bodies (AO B3). 2. Unchanged right mediasti nal hematoma, likely secondary to C7 vertebral body fracture. No active bleeding. 3. Unchanged L2 vertebral b josseline wedge compression fracture, likely acute to subacute (AO A1). 4. Interval development of trace bilateral pleu ral effusions. 5. No acute traumatic organ injury in the abdom en or pelvis. Neck CTA EXAM: CT ANGIOGRAM OF THE NECK 11/22/2019 [facility] DATE: 11/22/2019 8:10 CDT Center INDICATION: - fall COMPARISON: CT cervical spine and brain from 10/31 TECHNIQUE: Rapid acquisition spiral CT images of the neck were obtained between the aortic arch and the skull base during intravenous infusion of iodinated contrast for the purposes of CT angiography. 3-D CT angio graphic images are created u sing maximum intensity projection technique at the acquisition workstation. IV contrast: 150 cc Omnipaque 350 DLP: 624.4mGy-cm FINDINGS: Evaluation of the cervical s pine is deferred to the dedicated CT which is reported separately. Right neck subcutaneous and deeper soft tissue hematoma/edema. Evolving prevertebral hematoma related to C6 -C7 extension injury. In add ition to the acute traumatic injuries, there are degenerative changes of the cervical spine with spinal canal and foraminal stenosis. Atherosclerotic plaque at th e origin of the right common carotid artery without hemodynamically significant stenosis. Partially calcified atherosclerotic plaque at the carotid bifurcation with mild narr owing at the proximal ICA bu t no hemodynamically significant stenosis. Partially calcified carotid plaque at the left carotid bifurcation with stenosis of the ECA origin which remains patent. Stenosis a t the left ICA origin is roger culated to be 46% by NASCET criteria. Otherwise, no hemodynamically significant stenosis within the common carotid or cervical internal carotid arteries. No evidence of acute vascular injury. Atheroscle rotic calcifications in the carotid siphons there is focal stenosis in the proximal left supraclinoid segment, which is otherwise patent. Right supraclinoid ICA stenosis. Dim inutive caliber of the proxi mal ACAs, with partially imaged planum sphenoidale meningioma. Attenuated caliber of the proximal right MCA. The right vertebral artery i s congenitally hypoplastic in caliber, with questionable minimal luminal contour irregularity and slight narrowing proximally and attenuation in the juxta dural segment. Ther e is more diffuse luminal co ntour irregularity in the intradural segment which is felt to relate to atherosclerotic disease, with congenital hypoplasia. No hemodynamically significant stenosis or eviden ce of acute vascular injury involving the left vertebral artery with mild atherosclerotic changes and mild extrinsic compression secondary to cervical degenerative changes. IMPRESSION: Questionable minimal nonspec ific luminal contour irregularity/slight narrowing in the nondominant proximal right vertebral artery. Otherwise, no evidence of acute vascular injury in the neck. Atherosclerotic disease at t he carotid bifurcations bilaterally, worse on the left with ICA origin stenosis calculated at 46% and stenosis of the ECA origin. Right greater than left supr aclinoid ICA stenoses, with attenuated caliber of the imaged proximal ACAs, in the setting of a planum sphenoidale meningioma. (All qualitative and quantit ative assessments of carotid bifurcation and proximal internal carotid artery stenosis are made referencing the distal internal carotid artery {NASCET criteria}.) Forearm 2 views DX EXAM: XR RIGHT HAND 3 VIEWS 11/22/2019 [facility] EXAM: XR RIGHT WRIST [address] EXAM: XR RIGHT FOREARM 2 VIEWS EXAM: XR RIGHT ELBOW 3 VIEWS DATE: 11/22/2019 8:13 CDT INDICATION: - FALL COMPARISON: Right wrist radiographs 02/05/2019 TECHNIQUE: 3 views of the h and, 4 views of the wrist, 2 views of the forearm, 3 views of the elbow FINDINGS: There is no acute fracture or malalignment. There is generalized decreased bone mineral dens ity. Mild joint space narrowing a nd osteophyte formation is present at the 1st CMC joint. There is no excessive elbow joint fluid. There is mild soft tissue sw elling along the dorsal aspect of the distal elbow. Mild soft tissue swelling is present along the medial aspect of the elbow, at the site of the peripheral IV catheter. IMPRESSION: 1. No acute fracture or malalignment. 2. Mild soft tissue swelling along the dorsal a spect of the distal elbow. UT SECTION: ER Wrist complete DX EXAM: XR RIGHT HAND 3 VIEWS 11/22/2019 [facility] EXAM: XR RIGHT WRIST [address] EXAM: XR RIGHT FOREARM 2 VIEWS EXAM: XR RIGHT ELBOW 3 VIEWS DATE: 11/22/2019 8:13 CDT INDICATION: - FALL COMPARISON: Right wrist radiographs 02/05/2019 TECHNIQUE: 3 views of the h and, 4 views of the wrist, 2 views of the forearm, 3 views of the elbow FINDINGS: There is no acute fracture or malalignment. There is generalized decreased bone mineral dens ity. Mild joint space narrowing a nd osteophyte formation is present at the 1st CMC joint. There is no excessive elbow joint fluid. There is mild soft tissue sw elling along the dorsal aspect of the distal elbow. Mild soft tissue swelling is present along the medial aspect of the elbow, at the site of the peripheral IV catheter. IMPRESSION: 1. No acute fracture or malalignment. 2. Mild soft tissue swelling along the dorsal a spect of the distal elbow. UT SECTION: ER Elbow 3 views DX EXAM: XR RIGHT HAND 3 VIEWS 11/22/2019 [facility] EXAM: XR RIGHT WRIST [address] EXAM: XR RIGHT FOREARM 2 VIEWS EXAM: XR RIGHT ELBOW 3 VIEWS DATE: 11/22/2019 8:13 CDT INDICATION: - FALL COMPARISON: Right wrist radiographs 02/05/2019 TECHNIQUE: 3 views of the h and, 4 views of the wrist, 2 views of the forearm, 3 views of the elbow FINDINGS: There is no acute fracture or malalignment. There is generalized decreased bone mineral dens ity. Mild joint space narrowing a nd osteophyte formation is present at the 1st CMC joint. There is no excessive elbow joint fluid. There is mild soft tissue sw elling along the dorsal aspect of the distal elbow. Mild soft tissue swelling is present along the medial aspect of the elbow, at the site of the peripheral IV catheter. IMPRESSION: 1. No acute fracture or malalignment. 2. Mild soft tissue swelling along the dorsal a spect of the distal elbow. UT SECTION: ER Facial bone wo EXAM: CT FACIAL BONES WITHOUT CONTRAST 0 [facility] contrast CT DATE: 11/22/2019 8:24 CDT Center INDICATION: - ecchymosis, periorbital COMPARISON: CT facial bones 11/21/2019 TECHNIQUE: Volumetric CT of the facial bones is acquired without contrast. Axial, coronal and sagittal images are provided. 3D reconstructions are created by the radiologist on a separate workstation. IV contrast: None. DLP: 291 mGy-cm UT SECTION: ER FINDINGS: Bones: No fracture or other acute bony abnormali ty is identified. The mandible is intact, and the temporomandibula r joints are well-aligned. The paranasal sinuses and mastoid air cells are clear. Postsurgical changes at the right calvarium with associated right frontotemporal encephalomalacia are again noted. A left transfrontal [employer] shunt is noted. Soft tissues: No abnormality of the globes is seen. There is no intraconal hematoma. There is mild right periorbi costa and frontal soft tissue swelling. There are no radiopaque foreign bodies. There is partially imaged en capsulated lipomatous mass within the subcutaneous tissues of the right neck. IMPRESSION: 1. No acute facial fractures, intraconal hemato ma, or globe injury. 2. Mild right periorbital and frontal soft tiss ue swelling. 3. Partially imaged lipomat ous mass within the subcutaneous tissues of the right neck. Torso-Outside Consult EXAM: CT CHEST WITHOUT CONTRAST 11/22/2019 [facility] CT DATE: 11/22/2019 at 0053 hours C enter INDICATION: - TRAUMA, second interpretation req uested. COMPARISON: Chest CT 09/13/2018 TECHNIQUE: Volumetric CT of the chest is acquired without intravenous administration of contrast. Axial, coronal and sagittal images are provided. DLP: Not available UT SECTION: ER FINDINGS: Lines and tubes: A left subc lavian chest port seen with its tip terminating in the brachiocephalic vein. Partially visualized ventriculoperitoneal shunt. Lower Neck: Mild soft tissue swelling in the right supraclavicular soft tissue region. Thoracic Aorta and Mediastin um: There is a mediastinal hematoma adjacent to the upper thoracic esophagus in the region of the azygos vein. This measures approximately 2.6 x 1.7 cm. Lungs, Pleura, Diaphragm: No pulmonary contusions. Minimal bilateral dependent subsegmental atelectasis. There are scattered 3 to 4 mm pulmonary nodules throughout both lungs. These are nonspecific and could represent infectious/i nflammatory processes. No pleural effusion or pneumothorax. No diaphragmatic injury. Upper abdomen: No definite a bnormality is seen in the visualized upper abdomen. Vasculature: No vascular injury. Aberrant right subclavian artery is noted. Spine/ Bones: Generalized os teopenia. Hyperextension injury at C7 is again demonstrated. Additionally, hyperextension injury at T4 is seen with the fracture line extending posteriorly into the right pedicle. Soft tissues: Normal. IMPRESSION: 1. Hyperextension injury at T4 (AOSpine B3). 2. Mediastinal hematoma adj acent to the upper thoracic trachea. Close vicinity with aberrant right subclavian artery. Arterial injury cannot be excluded. Spine-Outside Consult EXAM: CT CERVICAL SPINE WITHOUT CONTRAST 0 11/22/2019 [facility] CT DATE: 11/21/2019 at 2239 hours C enter INDICATION: - TRAUMA, second interpretation req uested COMPARISON: Cervical spine CT 02/17/2019 TECHNIQUE: Noncontrast CT im ages of the cervical spine, obtained at [facility]. Axial, sagittal and coronal images provided. UT SECTION: ER FINDINGS: The spine is imaged from the skull bas e to the level of T2. Hyperextension injury at C7 is seen involving the anterior vertebral body with a focal kyphotic deformity. Fracture line also extends into the lateral mass and inferior articulating facet on the right. Laminectomy surgical changes are noted at C2 and C3. Prevertebral hematoma is see n associated with the hyperextension injury measuring up to 0.8 cm in maximal thickness. Soft tissue hematoma is also seen in the right s upraclavicular region. Partially visualized left subclavian vascular ca theter is seen. IMPRESSION: 1. Hyperextension injury of C7 with the fracture line extending into the right lateral mass and inferior articulating facet. AOSpine B3 2. Associated prevertebral hematoma at the leve l of C7. Brain-Outside Consult EXAM: CT BRAIN WITHOUT CONTRAST 11/22/2019 [facility] [employer] CT DATE: 11/22/2019 6:07 CDT Center INDICATION: Trauma, fall; tr ansferred for higher level of care, request for second interpretation of outside imaging. COMPARISON: CT brain from 03/02/2019 and MRI brai n from 02/22/2019 TECHNIQUE: Noncontrast axial imaging of the brain was acquired from the vertex to the skull base. Coronal and sagittal reformatted images were generated. 381 images. Imaging was performed at [facility] on 11/21/2019 at 10:47 PM . FINDINGS: Left frontal ventricular cat heter in place with the tip in the right frontal horn and intact imaged portions of the catheter tubing. Lateral ventricular size is slightly decreased compared to the prior study. Again demonstrated ar e changes of right convexity craniotomy and right frontotemporal encephalomalacia, with no acute hemorrhage or definitive acute parenchymal abnormality. Mild passive shift of the midline to the right. N o acute fracture. Osseous thickening along the anterior and central skull base with residual planum sphenoidale meningioma. The paranasal sinuses and mastoid air cells are clear. IMPRESSION: No acute intracranial abnormality. UT SECTION: Neuro Brain-Outside Consult EXAM: CT FACIAL BONES WITHOUT CONTRAST [facility] CT DATE: 11/21/2019 at 2239 hours C enter INDICATION: - TRAUMA COMPARISON: None TECHNIQUE: Volumetric CT of the facial bones is acquired without contrast at outside hospital. 2nd interpretation was requested. Axial, coronal and sagittal images are provided. IV contrast: None. DLP: Not available. UT SECTION: ER FINDINGS: Bones: No fracture or other acute bony abnormality is identified. The mandible is intact, and the temporomandibular joints are well-aligned. Surgical changes of prior right frontotemporal craniotomy are partially seen. The paranasal sinuses and mastoid air cells are clear. Soft tissues: No abnormality of the globes is seen. There is no intraconal hematoma. Mild right preseptal and periorbital swelling. Mild right frontal scalp swelling is also noted. IMPRESSION: 1. No acute facial bone fractures. 2. Mild right preseptal and periorbital swellin g. 3. Mild right frontal scalp swelling. Brain wo contrast CT EXAM: CT HEAD WITHOUT CONTRAST 03/02/2019 [facility] DATE: 03/02/2019 14:52 CDT Center INDICATION: 72 [...] are unchanged in size. Persistent 0.4 cm [id number] midline shift. IMPRESSION: 1. No CT evidence of acute intracranial abnormality. Redemonstration of areas of encephalomalacia in the right frontal and temporal lobes. Persistent 0.4 cm [id number] midline shift. The ventricles are unchanged in size. Chest 1view DX EXAM: XR CHEST 1 VIEW 02/27/2019 [facility] edical DATE: 02/27/2019 13:37 CDT [...] DX EXAM: XR CHEST 1 VIEW 02/26/2019 [facility] edical DATE: 02/26/2019 13:33 CDT [...] EXAM: MRI BRAIN WITH AND WITHOUT CONTRAST [facility] MRI DATE: 02/22/2019 1740 hours Cente r [...] enhancement. PICC insert with or PROCEDURES: 02/21/2019 [facility] Med ical without port VR Foreign body retrieval [...] used for the remainder of the procedure. Director [employer] radiographic imaging d emonstrates a microwire with [...] A sterile dressing was applied. Catheter placed: Pallet USAp Catheter size (Malawian): 5 Catheter intravascular length (cm): 22 Catheter flush: Normal saline Catheter securement technique: Non-absorbable hendrix ture Contrast Contrast agent: Visipaque 320 Contrast [...] report as written. Foreign body PROCEDURES: 02/21/2019 [facility] Medical retrieval from Foreign body retrieval (microwire) Center [...] used for the remainder of the procedure. Director [employer] radiographic imaging d emonstrates a microwire with [...] was applied. Catheter placed: Medcomp Catheter size (Malawian): 5 Catheter intravascular length (cm): 22 Catheter flush: Normal saline Catheter securement technique: Non-absorbable hendrix ture Contrast Contrast agent: Visipaque 320 Contrast [...] SPINE WITHOUT AND WITH CONTRA ST 02/20/2019 [facility] contrast MRI DATE: 02/22/2019 7:25 PM CDT [...] RIGHT FOOT WITH AND WITHOUT CONTRAST 02/20/2019 [facility] MRI DATE: 02/20/2019 20:28 CDT Center INDICATION: [...] SPINE WITHOUT AND WIT H CONTRAST 02/20/2019 [facility] MRI DATE: 02/22/2019 6:43 PM CDT Cent er INDICATION: - Pt [...] ABDOMEN AND PELVIS WITH CONTRAST 0 02/19/2019 [facility] contrast only CT DATE: 02/19/2019 8:17 CDT [...] EXAM: CT RIGHT FOOT WITH CONTRAST 02/19/2019 [facility] DATE: 02/19/2019 at 0844 hours Ce nter [...] EXAM: CT LUMBAR SPINE WITH CONTRAST 02/17/2019 [facility] contrast CT DATE: 02/17/2019 Center INDICATION: 'h/o [...] SPINE WITH CONTRAST [address] [facility] contrast CT DATE: 02/17/2019 Center INDICATION: 72 [...] complex indenting the ventral thecal sac causing [id number] spinal canal stenosis. Bilateral severe neural foraminal [...] EXAM: MR RIGHT FOOT WITHOUT CONTRAST 2018 [facility] DATE: 02/12/2019 2:09 PM CDT [facility] er INDICATION: - r/o OM COMPARISON: Computed [...] DX EXAM: XR CHEST 1 VIEW 02/09/2019 [facility] edical DATE: 02/09/2019 7:48 CDT Center INDICATION: Respiratory distress - sepsis COMPARISON: 02/07/2019 TECHNIQUE: AP chest radiograph IMPRESSION: 1. Cardiomediastinal silhou ette is enlarged, unchanged. Aortic atherosclerotic disease. 2. Prominent lung reticulat ions again seen with peribronchial cuffing suggestive of pulmonary edema. Superimposed infection cannot be excluded. 3. Costophrenic sulci are sharp. 4. Osseous structures are stable. 5. Left-sided DEPUTY INSURANCE COMMISSIONER shunt is stable compared to pr evious study. Foot wo contrast CT EXAM: CT RIGHT FOOT WITHOUT CONTRAST 019 [facility] DATE: 02/08/2019 7:05 CDT Center INDICATION: - c/o pain in r [...] DX EXAM: XR CHEST 1 VIEW 02/07/2019 [facility] edical DATE: 02/07/2019 7:28 PM CDT Cente r INDICATION: - shortness of breath COMPARISON: 02/06/2019 TECHNIQUE: AP chest. IMPRESSION: Left-sided DEPUTY INSURANCE COMMISSIONER shunt in stabl e position. Stable cardiac mediastinal silhouette and atherosclerotic changes in the aorta. Small bilateral pleural effusions. No pneumothorax. Mild bibasilar subsegmental atelectasis. CONCLUSION: 1. Small bilateral pleural effusions. 2. Mild bibasilar subsegmental atelectasis. Upp er lungs are clear. Chest 1view DX EXAM: XR CHEST 1 VIEW 02/06/2019 [facility] edical DATE: 02/06/2019 15:06 [place] INDICATION: - infectious workup for AMS COMPARISON: [...] EXAM: XR RIGHT WRIST 3 VIEWS 02/05/2019 [facility] DATE: 02/05/2019 17:36 [facility] INDICATION: - fall, severe pain COMPARISON: None TECHNIQUE: PA, lateral and oblique radiographs of the wrist FINDINGS: No acute fracture or malalignment is identified. No soft tissue abnormality is identified. IMPRESSION: No acute abnormality. Ankle 3 views DX EXAM: XR RIGHT ANKLE 3 VIEWS 02/05/2019 [facility] DATE: 02/05/2019 17:36 T Center INDICATION: [...] DX EXAM: XR CHEST 2 VIEWS 02/05/2019 [facility] DATE: 02/05/2019 2:09 PM CDT Cente r INDICATION: Respiratory distress - SOB COMPARISON: December 27, 2018 TECHNIQUE: AP and lateral chest radiographs IMPRESSION: 1. Cardiomediastinal silhou ette is enlarged, unchanged. Aortic atherosclerotic disease. 2. Prominent lung reticulat ions again seen with peribronchial cuffing suggestive of pulmonary edema. Superimposed infection cannot be excluded. 3. Trace bilateral pleural effusions. 4. Osseous structures are stable. 5. Left-sided DEPUTY INSURANCE COMMISSIONER shunt is stable compared to pr evious study. Chest 1view DX EXAM: XR CHEST 1 VIEW 12/27/2018 [facility] edical DATE: 12/27/2018 3:00 T Center INDICATION: - intubated. TECHNIQUE: Chest [...] DX EXAM: XR CHEST 1 VIEW 12/26/2018 [facility] edical DATE: 12/26/2018 6:29 CDT Center INDICATION: - intubated. TECHNIQUE: Chest [...] for EXAM: XR CHEST 1 VIEW 12/25/2018 [facility] edical Placement DX DATE: 12/25/2018 3:42 T Center INDICATION: Line Placement - Chest 1 [...] catheter. Liver US EXAM: US LIVER 12/24/2018 [facility] DATE: 12/24/2018 20:47 T Center INDICATION: -Elevated [...] DX EXAM: XR CHEST 1 VIEW 12/24/2018 [facility] edical DATE: 12/24/2018 20:04 T Center INDICATION: ETT placement, Hypoxia - ETT [...] for EXAM: XR ABDOMEN 1 VIEW 12/24/2018 [facility] Placement DX DATE: 12/24/2018 20:04 T Center INDICATION: NGT placement - NGT placement [...] focal consolidation is identified. There is left-sided DEPUTY INSURANCE COMMISSIONER shunt tubing. There are calcified granulomata in the upper lobes. The cardiac silhouette is up per limits of normal in size. Degenerative change involves the thoracic spine and shoulders. An old distal right clavicle fracture is suspected. IMPRESSION: 1. Minimal left lower lobe subsegmental atelecta sis. [id number] Bone Density DXA Dual 10/21/2018 [employer]ONI[employer] MA BONE DENSITY ASSESSMENT: 10/21/2018 CLINICAL [...] the Z-score is 0.50. This matches t humph[place] World Health Organization 's criteria for osteopenia [...] the Z-score is 2.40. This matches the Worl d Health Organization's criteria for normal bone density and places the patient within normal limits of fracture risk. FRAX 10 year probability of major osteoporotic fracture is 10% and hip fracture is 1.9%. IMPRESSION: OSTEOPENIA Patient is at medium risk fo r fracture. Patient consult w/primary care provider is recommended. This exam was interpreted at [id number] for CRISPIN Varela 15. Betzy Caba M.D., ms/ellierad:10/21/2018 12:45:40 [employer] Operator(s): Daniel Anthony Esophagus BA swallow EXAM: FLUOROSCOPY MODIFIED BARIUM SWALLOW 0 09/23/2018 [facility] video DX DATE: 09/23/2018 at 0942 hours [...] also see detailed chart note by cristhian alston pathology. Skull 1 view DX EXAM: SKULL 1 view DATE: - Codman's view 2018 [facility] INDICATION: Suspected shunt malfunction. Center TECHNIQUE: [...] DX EXAM: XR CHEST 1 VIEW 09/17/2018 [facility] edical DATE: 09/17/2018 3:00 CDT Center INDICATION: Tube placement/removal/reposition - atlectasis COMPARISON: 09/15/2017 TECHNIQUE: AP chest. FINDINGS: Feeding tube has been remove d. Left upper extremity PICC and DEPUTY INSURANCE COMMISSIONER shunt remains in position. Persistent small left [...] EXAM: FLUOROSCOPY MODIFIED BARIUM SWALLOW 0 09/16/2018 [facility] function video DX DATE: 09/16/2018 at 1349 hours Center INDICATION: Dysphagia - Comparison to MBS @ [facility] C 09/08/18. COMPARISON: 09/08/2018 modified barium swallow. TECHNIQUE: Oral barium contr ast of differing consistencies was given to the patient to assess swallowing mechanism. The study was performed in conjunction with speech pathology. FLUOROSCOPY TIME: 1 minute 29 seconds SKIN DOSE: 11.51 mGy DISCUSSION: The patient was given barium contrast of differe nt consistencies. Thin barium: Deep, silent penetration.. [place] barium: Normal. Pudding barium: Pooling into the vallecula.. Solid with barium: Pooling into the vallecula.. IMPRESSION: 1. Deep, silent penetration with thin consisten cy barium contrast. 2. No penetration or aspira tion observed with nectar consistency barium contrast. 3. Pooling into the vallecu la seen with pudding and solid consistency barium contrast. 4. Please also see detailed chart note by cristhian alston pathology. Chest 1view DX EXAM: XR CHEST 1 VIEW 09/15/2018 [facility] edical DATE: 09/15/2018 3:00 T Center INDICATION: - intubated COMPARISON: Chest x-ray [...] DX EXAM: XR CHEST 1 VIEW 09/14/2018 [facility] edical DATE: 09/14/2018 3:00 T [...] CT ABDOMEN AND PELVIS WITH CONTRAST 09/13/2018 [facility] contrast CT DATE: 09/13/2018 10:29 T Center INDICATION: - concern for a myeloproliferative [...] stric antrum. Right upper quadrant surgical clips. DEPUTY INSURANCE COMMISSIONER shunt catheter tip at the lower central [...] CT EXAM: CT CHEST WITH CONTRAST 09/13/2018 [facility] DATE: 09/13/2018 10:28 CDT Center INDICATION: [...] or inflammatory bronchiolitis. 3. Bilateral lower lobar hendrix bsegmental platelike atelectatic changes associated with fibrotic [...] per Fleischner criteria : The Maureen Society [facility] for nodules measuring up to [...] EXAM: MRI BRAIN WITH AND WITHOUT CONTRAST [facility] MRI DATE: 09/13/2018 at 0221 hours. C [...] for EXAM: XR CHEST 1 [facility]: 09/13/2018 3:00 T Center INDICATION: Tube placement - ETT placement COMPARISON: 08/31/2018 TECHNIQUE: AP chest IMPRESSION: 1. Interval placement of en dotracheal tube with tip terminates 2 cm above the jennifer. Interval placement of feeding tube with adequate positioning. Again seen is left upper extremity PICC with stable p osition. Left sided DEPUTY INSURANCE COMMISSIONER shunt is stable in positi on. 2. Small left pleural effus ion with left basilar atelectatic changes. No new lung lesions identified. 3. Cardiomediastinal silhou ette is enlarged, unchanged. Aortic atherosclerotic disease. 4. Osseous structures are stable. Abdomen AP DX EXAM: XR ABDOMEN 1 VIEW 09/12/2018 [facility] DATE: 09/12/2018 20:16 CDT Center INDICATION: [...] DX EXAM: XR ABDOMEN 1 VIEW 09/12/2018 [facility] DATE: 09/12/2018 17:42 [facility] INDICATION: - [place] placement COMPARISON: 03/14/2011 TECHNIQUE: Limited AP view of the abdomen for tube placement assessment. Number of images: 1 FINDINGS: Transesophageal feeding tube tip in the proximal stomach and needs to be further advanced. Transesophageal suction tube: None. Other tubes and lines: A DEPUTY INSURANCE COMMISSIONER shunt catheter noted . No other changes. IMPRESSION: Tube positions as above. Skull 1 view DX EXAM: XR SKULL 1 VIEW 09/11/2018 [facility] DATE: 09/11/2018 1:02 PM Center INDICATION: DEPUTY INSURANCE COMMISSIONER shunt, MRI COMPARISON: Skull x-ray from 08/18/2018 TECHNIQUE: A single oblique radiograph of the sk ull. DISCUSSION: Ventricular cath eter with Hakim Codman valve, setting of 140 mm water, without interval change. IMPRESSION: Stable valve setting 140 mm water. Chest 1 v for EXAM: XR CHEST 1 VIEW 09/10/2018 [facility] edical Placement DX DATE: 09/10/2018 1:51 CDT Center INDICATION: Line Placement - Chest 1 view for li ne placement COMPARISON: 09/08/2017 TECHNIQUE: AP chest. FINDINGS: Left-sided chest wall DEPUTY INSURANCE COMMISSIONER rosa nt is unchanged. Redemonstration of left [...] BA swallow EXAM: MODIFIED BARIUM SWALLOW WITH ERICE CH PATHOLOGY 09/08/[address] [facility] function video DX DATE: 09/08/2018 12:40 CDT . ORDERING PHYSICIAN: Sadi Cortés MD CLINICAL INDICATION: - Complete with MEDICAL STAFF SPECIALIST Vandana gomez; TECHNIQUE: The patient swall owed [...] frequent nasal regurgitation. Thin barium: Symptomatic aspiration [place]: Symptomatic aspiration IMPRESSION: 1. Some traumatic aspiration [...] Left PICC line terminates in the SVC. [id number] Angiogram cervical PROCEDURE: 08/19/2018 [facility] roger artery bilateral VR 1. 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 HISTORY: 73-year-old female patient with past medical history of meningioma of the planum sphenoidale resected in 2010, status post DEPUTY INSURANCE COMMISSIONER shunt placement. Currently complaining of insidious onset [...] single wall micropunctur e technique and a 5-Malawian sheath was placed. A 5- Malawian Vert catheter was coaxially advanced over a [...] carotid arteries with normal filling of the potato grader al carotid artery branches. Smooth atheromatous plaques [...] DX EXAM: XR SKULL 1 VIEW 08/18/2018 [facility] edical DATE: 08/18/2018 17:56 CDT [...] at 140 mm H2O. Brain wo contrast MRI EXAM: MRI BRAIN WITHOUT CONTRAST 9 [facility] EXAM: MRI ORBITS WITHOUT CONTRAST. Center DATE: [...] le ft frontal ventriculostomy. Orbit wo contrast MRI EXAM: MRI BRAIN WITHOUT CONTRAST 9 [facility] EXAM: MRI ORBITS WITHOUT CONTRAST. Center DATE: [...] w EXAM: CT NECK WITH CONTRAST 08/18/[address] [facility] contrast CT DATE: 08/18/2018 7:19 CDT Center [...] EXAM: FLUOROSCOPY MODIFIED BARIUM SWALLOW 0 08/18/2018 [facility] function video DX DATE: 08/18/2018 7[facility]00 [facility]: - [facility]. ADDITIONAL INFORMATION: None. COMPARISON: [...] also see detailed chart note by cristhian alston pathology. Chest w contrast CT EXAM: CT CHEST WITH CONTRAST 08/17/2018 [facility] DATE: 08/17/2018 17:07 CDT Center INDICATION: eft-sided [...] COMPARISON: No available prior chest CT[facility] FINDINGS: Lines and Tubes: Left sided, anterior chest wall DEPUTY INSURANCE COMMISSIONER shunt is noted. Lower Neck: Please refer [...] Exam: Radiographs of the skull for shunt settin g. 08/17/2018 [facility] HISTORY: Evaluate shunt setting. Comparison with radiographs from August 19, 2011. TECHNIQUE: 3 views of the skull were obtained. FINDINGS: A Codman valve is placed, th e shunt valve setting is approximately 150 cc of water. FINDINGS: Radiographs for shunt valve setting. Brain/Neck CTA Exam: CTA HEAD AND NECK 08/16/2018 [facility] DATE: 08/16/2018 7:42 PM CDT Cent er [...] arteries and basilar artery are patent. Both milling machine set up operator are patent. Nonflow limiting stenot ic lesions in the left P2 and right P3-P4 segmen t. No AV malformation or aneurysms. IMPRESSION: Atheromatous disease in the carotid bulbs not resulting in significant stenosis by NASCET criteria. Greater than 50% stenosis in the para and supraclinoid right internal carotid artery. 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 Aberrant right subclavian artery Qualitative and quantitative assessments of stenosis in the carotid bulbs is made referencing the distal internal carotid artery Brain wo contrast CT EXAM: CT BRAIN WITHOUT CONTRAST 08/16/2018 [facility] DATE: 08/16/2018 4:26 PM CDT Cent er [...] Signs Vital Sign Value Date Comments Source Respitory Rate 32 02/27/2020 [facility] Systolic (mm Hg) 106 [facility] [place] Diastolic (mm Hg) 64 02/27/2020 [facility] Respitory Rate 27 02/27/2020 [facility] Respitory Rate 32 02/27/2020 [facility] Systolic (mm Hg) 125 02/27/2020 [facility] dical [place] Diastolic (mm Hg) 73 02/27/2020 [facility] Systolic (mm Hg) 106 02/27/2020 [facility] dical [place] Diastolic (mm Hg) 52 02/27/2020 [facility] Temperature Oral (F) 98.4 F 02/23/2020 [facility] Temperature Oral (F) 98.8 F 02/22/2020 [facility] Temperature Oral (F) 96.8 F 02/22/2020 [facility] Respitory Rate 24 02/20/2020 [facility] Respitory Rate 21 02/20/2020 [facility] Temperature Oral (F) 98 F 02/20/2020 [facility] Respitory Rate 20 02/20/2020 [facility]ger Center Systolic (mm Hg) 110 02/20/2020 [facility] dical Center Diastolic (mm Hg) 52 [facility] [place] Systolic (mm Hg) 105 02/20/2020 [facility] dical Center Diastolic (mm Hg) 54 02/20/2020 [facility] Temperature Oral (F) 97.4 F 02/20/2020 [facility] Systolic (mm Hg) 129 02/20/2020 [facility] dical Center Diastolic (mm Hg) 60 02/20/2020 [facility] Temperature Oral (F) 98 F 02/16/2020 [facility] Heart Rate 60 02/16/2020 [facility] Heart Rate 73 02/16/2020 [facility] Heart Rate 66 02/16/2020 [facility] Height 149.86 cm 02/15/2020 [facility] Weight 84.545 02/15/2020 [facility] [place] BMI Calculated 37.65 02/15/2020 [facility] Heart Rate 79 12/20/2019 [facility] Respitory Rate 18 12/20/2019 [facility]ger Center Systolic (mm Hg) 107 12/20/2019 [facility] dical Center Diastolic (mm Hg) 71 12/20/2019 [facility] edical Center Heart Rate 81 12/20/2019 [facility] Center Respitory Rate 15 12/20/2019 [facility]ger Center Systolic (mm Hg) 112 12/20/2019 [facility] dical Center Diastolic (mm Hg) 77 12/20/2019 [facility] edical Center Heart Rate 80 12/20/2019 [facility] Center Respitory Rate 18 12/20/2019 [facility] Systolic (mm Hg) 119 12/20/2019 [facility] dical Center Diastolic (mm Hg) 71 12/20/2019 [facility] [facility] [place] Temperature Oral (F) 97.6 F 12/20/2019 [facility] Temperature Oral (F) 97.5 F 12/19/2019 [facility] Temperature Oral (F) 97.5 F 12/19/2019 [facility] Height 149.86 cm 12/06/2019 [facility] Height 149.86 cm 12/06/2019 [facility] Height 149.86 cm 12/06/2019 [facility] Systolic (mm Hg) 127 12/01/2019 [facility] dical Center Diastolic (mm Hg) 58 12/01/2019 [facility] edical Center Respitory Rate 21 12/01/2019 [facility] roger Center Respitory Rate 24 12/01/2019 [facility]ger Center Respitory Rate 19 12/01/2019 [facility] Center Systolic (mm Hg) 149 12/01/2019 [facility] dical Center Diastolic (mm Hg) 103 12/01/2019 [facility] edical Center Systolic (mm Hg) 146 12/01/2019 [facility] dical Center Diastolic (mm Hg) 65 12/01/2019 [facility] edical Center Temperature Oral (F) 98.6 F 11/30/2019 [facility] Temperature Oral (F) 98.5 F 11/30/2019 [facility] Temperature Oral (F) 98.0 F 11/30/2019 [facility] Respitory Rate 18 11/28/2019 [facility] Center Systolic (mm Hg) 149 11/28/2019 [facility] dical Center Diastolic (mm Hg) 66 11/28/2019 [facility] edical Center Respitory Rate 12 11/28/2019 [facility] Center Systolic (mm Hg) 133 11/28/2019 [facility] dical Center Diastolic (mm Hg) 71 11/28/2019 [facility] edical Center Respitory Rate 13 11/28/2019 [facility] Center Systolic (mm Hg) 167 11/28/2019 [facility] dical Center Diastolic (mm Hg) 70 11/28/2019 [facility] edical Center Respitory Rate 20 11/28/2019 [facility] Center Systolic (mm Hg) 171 11/28/2019 [facility] dical Center Diastolic (mm Hg) 72 11/28/2019 [facility] edical Center Respitory Rate 24 11/28/2019 [facility] Center Systolic (mm Hg) 162 11/28/2019 [facility] dical Center Diastolic (mm Hg) 73 11/28/2019 [facility] Respitory Rate 25 11/28/2019 [facility] Center Systolic (mm Hg) 153 11/28/2019 [facility] dical Center Diastolic (mm Hg) 65 11/28/2019 [facility] Temperature Oral (F) 99.0 F 11/24/2019 [facility] Height 149.86 cm 11/23/2019 [facility] Weight 90 11/23/2019 [facility] BMI Calculated 40.07 11/23/2019 [facility] Temperature Oral (F) 97.4 F 11/22/2019 [facility] Temperature Oral (F) 97.9 F 11/22/2019 [facility] Heart Rate 88 11/22/2019 [facility] Temperature Oral (F) 98.8 F 03/04/2019 [facility] Heart Rate 78 03/04/2019 [facility] [place] Respitory Rate 18 03/04/2019 [facility] Center Systolic (mm Hg) 126 03/04/2019 [facility] dical Center Diastolic (mm Hg) 64 03/04/2019 [facility] Temperature Oral (F) 97.9 F 03/04/2019 [facility] Heart Rate 75 03/04/2019 [facility] Respitory Rate 18 03/04/2019 [facility] Center Systolic (mm Hg) 135 03/04/2019 [facility] dical Center Diastolic (mm Hg) 69 03/04/2019 [facility] edical [place] Temperature Oral (F) 98.6 F 03/04/2019 [facility] Heart Rate 68 03/04/2019 [facility] Respitory Rate 18 03/04/2019 [facility] Center Systolic (mm Hg) 147 03/04/2019 [facility] dical Center Diastolic (mm Hg) 77 [facility] 149.86 cm 03/01/2019 [facility] Weight 100 03/01/2019 [facility] BMI Calculated 44.53 03/01/2019 [facility] Height 149.86 cm 02/16/2019 [facility] Weight 90.909 02/16/2019 [facility] Height 149.86 cm 02/09/2019 [facility] Weight 90.909 02/09/2019 [facility] BMI Calculated 40.48 02/05/2019 [facility] Center Temperature Oral (F) 97.6 F 01/10/2019 [facility] Heart Rate 78 01/10/2019 [facility] Center Respitory Rate 18 01/10/2019 [facility] Systolic (mm Hg) 109 01/10/2019 [facility] dical Center Diastolic (mm Hg) 70 01/10/2019 [facility] Temperature Oral (F) 97.6 F 01/10/2019 [facility] Heart Rate 80 01/10/2019 [facility] Center Respitory Rate 18 01/10/2019 [facility] Systolic (mm Hg) 112 01/10/2019 [facility] dical Center Diastolic (mm Hg) 60 01/10/2019 [facility] edical Center Temperature Oral (F) 97.9 F 01/10/2019 [facility] Heart Rate 84 01/10/2019 [facility] Center Respitory Rate 18 01/10/2019 [facility] Systolic (mm Hg) 106 01/10/2019 [facility] dical Center Diastolic (mm Hg) 67 01/10/2019 [facility] edical Center Height 152.4 cm 12/27/2018 [facility] Height 152.4 cm 12/27/2018 [facility] Height 152.4 cm 12/27/2018 [facility] Weight 92 12/24/2018 [facility] BMI Calculated 39.61 12/24/2018 [facility] Center Temperature Oral (F) 98.8 F 11/29/2018 [facility] Heart Rate 78 11/29/2018 [place] [facility] Systolic (mm Hg) 174 11/29/2018 [facility] Diastolic (mm Hg) 74 11/29/2018 [facility] Center Respitory Rate 20 11/29/2018 [facility] Center Systolic (mm Hg) 190 11/29/2018 [facility] dical Center Diastolic (mm Hg) 79 11/29/2018 [facility] Height 149.86 cm 11/29/2018 [facility] BMI Calculated 45.54 11/29/2018 [facility] Weight 102.273 11/29/2018 [facility] Systolic (mm Hg) 163 11/29/2018 [facility] dical Center Diastolic (mm Hg) 83 11/29/2018 [facility] Respitory Rate 20 11/29/2018 [facility] Heart Rate 80 11/29/2018 [facility] Temperature Oral (F) 98.7 F 11/29/2018 [facility] Systolic (mm Hg) 139 09/23/2018 [facility] dical Center Diastolic (mm Hg) 66 09/23/2018 [facility] Respitory Rate 18 09/23/2018 [facility] Temperature Oral (F) 97.8 F 09/23/2018 [facility] Heart Rate 70 09/23/2018 [facility] Temperature Oral (F) 97.2 F 09/23/2018 [facility] Heart Rate 66 09/23/2018 [facility] Systolic (mm Hg) 147 09/23/2018 [facility] dical Center Diastolic (mm Hg) 63 09/23/2018 [facility] Center Respitory Rate 18 09/23/2018 [facility] Center Systolic (mm Hg) 147 09/23/2018 [facility] dical Center Diastolic (mm Hg) 53 09/23/2018 [facility] Center Respitory Rate 18 09/23/2018 [facility] Heart Rate 67 09/23/2018 [facility] Temperature Oral (F) 98.3 F 09/23/2018 [facility] BMI Calculated 40.88 09/21/2018 [facility] Weight 91.818 09/21/2018 [facility] Temperature Oral (F) 98.1 F 09/20/2018 [facility] Temperature Oral (F) 97.9 F 09/20/2018 [facility] Respitory Rate 30 09/20/2018 [facility] Center Systolic (mm Hg) 174 09/20/2018 [facility] dical Center Diastolic (mm Hg) 74 09/20/2018 [facility] Respitory Rate 27 09/20/2018 [facility] Center Systolic (mm Hg) 167 09/20/2018 [facility] dical Center Diastolic (mm Hg) 70 09/20/2018 [facility] Temperature Oral (F) 97.5 F 09/20/2018 [facility] Respitory Rate 35 09/20/2018 [facility] Center Systolic (mm Hg) 175 09/20/2018 [facility] dical Center Diastolic (mm Hg) 71 09/20/2018 [facility] Height 149.86 cm 09/15/2018 [facility] Height 149.86 cm 09/15/2018 [facility] Height 149.86 cm 09/15/2018 [facility] Heart Rate 101 09/11/2018 [facility] Heart Rate 98 09/11/2018 [facility] Heart Rate 95 09/11/2018 [facility] Respitory Rate 19 09/10/2018 [facility] C ity Systolic (mm Hg) 161 09/10/[address] [facility] Diastolic (mm Hg) 101 09/10/2018 [facility] Respitory Rate 16 09/10/2018 [facility] C ity Systolic (mm Hg) 148 09/10/[address] [facility] Diastolic (mm Hg) 67 09/10/2018 [facility] Systolic (mm Hg) 121 09/09/[address] [facility] Diastolic (mm Hg) 54 09/09/2018 [facility] Respitory Rate 15 09/09/2018 [facility] C ity BMI Calculated 41.99 09/08/2018 [facility] C ity Height 149.86 cm 09/08/2018 [facility] y Weight 94.3 09/08/2018 [facility] y Systolic (mm Hg) 110 08/20/2018 [facility] dical Center Diastolic (mm Hg) 66 08/20/2018 [facility] Respitory Rate 33 08/20/2018 [facility] Temperature Oral (F) 98.0 F 08/20/2018 [facility] Temperature Oral (F) 97.9 F 08/19/[address] [facility] Center Respitory Rate 20 08/19/2018 [facility] Temperature Oral (F) 97.8 F 08/19/[address] [facility] Center Systolic (mm Hg) 138 08/19/2018 [facility] dical Center Diastolic (mm Hg) 76 08/19/2018 [facility] edical Center Respitory Rate 18 08/19/2018 [facility] Center Systolic (mm Hg) 144 08/19/2018 [facility] dical Center Diastolic (mm Hg) 63 08/19/2018 [facility] edical Center Heart Rate 92 08/19/2018 [facility] Heart Rate 72 08/18/2018 [facility] Heart Rate 70 08/18/2018 [facility] BMI Calculated 49.69 08/17/2018 [facility] Center Height 149.86 cm 08/17/2018 [facility] Weight 111.6 08/17/2018 [facility] Weight 113.636 08/16/2018 [facility] Height 152.4 cm 08/16/2018 [facility] BMI Calculated 48.93 08/16/2018 [facility] Center Diastolic (mm Hg) 60.0 03/25/2011 [facility] edical Center Systolic (mm Hg) 151.0 03/25/2011 [facility] dical Center Temperature Oral (F) 97.6 F 03/25/[address] [facility] Center Heart Rate 87.0 03/25/2011 [facility] Respitory Rate 20.0 03/25/2011 [facility] Center Temperature Oral (F) 97.8 F 03/25/[address] [facility] Center Respitory Rate 20.0 03/25/2011 [facility]ger Center Heart Rate 98.0 03/25/2011 [facility] Systolic (mm Hg) 163.0 03/25/2011 [facility] dical Center Diastolic (mm Hg) 82.0 03/25/2011 [facility] edical Center Diastolic (mm Hg) 68.0 03/25/2011 [facility] edical Center Systolic (mm Hg) 156.0 03/25/2011 [facility] dical Center Temperature Oral (F) 97.7 F 03/25/2011 [facility] Heart Rate 95.0 03/25/2011 [facility] Respitory Rate 20.0 03/25/2011 [facility]ger Center Weight 90.909 03/22/2011 [facility] Height 149.86 cm 03/22/2011 [facility] Weight 90.909 03/22/2011 [facility] Height 149.86 cm 03/22/2011 [facility] Diastolic (mm Hg) 56.0 03/15/2011 [facility] edical Center Systolic (mm Hg) 128.0 03/15/2011 [facility] dical Center Respitory Rate 16.0 03/15/2011 [facility] Heart Rate 85.0 03/15/2011 [facility] Temperature Oral (F) 96.6 F 03/15/2011 [facility] Medical Center Diastolic (mm Hg) 91.0 03/15/2011 [facility] edical Center Systolic (mm Hg) 121.0 03/15/2011 [facility] dical Center Respitory Rate 18.0 03/15/2011 [facility] Heart Rate 78.0 03/15/2011 [facility] Temperature Oral (F) 98.2 F 03/15/2011 [facility] Diastolic (mm Hg) 39.0 03/15/2011 [facility] edical Center Systolic (mm Hg) 170.0 03/15/2011 [facility] dical Center Respitory Rate 18.0 03/15/2011 [facility] Temperature Oral (F) 98.0 F 03/15/2011 [facility] Heart Rate 93.0 03/15/2011 [facility] Weight 83.665 03/14/2011 [facility] Height 149.86 cm 03/14/2011 [facility] Heart Rate 97.0 03/07/2011 [facility] Respitory Rate 20.0 03/07/2011 [facility] Center Systolic (mm Hg) 140.0 03/07/2011 [facility] dical Center Diastolic (mm Hg) 66.0 03/07/2011 [facility] edical Center Temperature Oral (F) 98.4 F 03/07/2011 [facility] Diastolic (mm Hg) 69.0 03/07/2011 [facility] edical Center Systolic (mm Hg) 140.0 03/07/2011 [facility] dical Center Respitory Rate 20.0 03/07/2011 [facility] Center Temperature Oral (F) 98.6 F 03/07/[address] [facility] Center Heart Rate 115.0 03/07/2011 [facility] Systolic (mm Hg) 131.0 03/06/2011 [facility] dical Center Temperature Oral (F) 97.6 F 03/06/[address] [facility] Center Respitory Rate 18.0 03/06/2011 [facility] Center Heart Rate 104.0 03/06/2011 [facility] Diastolic (mm Hg) 44.0 03/06/2011 [facility] edical Center Height 149.86 cm 02/26/2011 [facility] Weight 90.909 02/26/2011 [facility] Temperature Oral (F) 98.2 F 02/26/[address] [facility] Center Heart Rate 90.0 02/26/2011 [facility] Respitory Rate 18.0 02/26/2011 [facility] Center Systolic (mm Hg) 154.0 02/26/2011 [facility] dical Center Diastolic (mm Hg) 54.0 02/26/2011 [facility] edical Center Temperature Oral (F) 98.9 F 02/26/[address] [facility] Center Heart Rate 93.0 02/26/2011 [facility] Respitory Rate 18.0 02/26/2011 [facility] Center Systolic (mm Hg) 153.0 02/26/2011 [facility] dical Center Diastolic (mm Hg) 60.0 02/26/2011 [facility] edical Center Temperature Oral (F) 98.7 F 02/26/[address] [facility] Center Respitory Rate 20.0 02/26/2011 [facility] Center Systolic (mm Hg) 149.0 02/26/2011 [facility] dical Center Diastolic (mm Hg) 62.0 02/26/2011 [facility] edical Center Heart Rate 95.0 02/25/2011 [facility] Weight 100.0 02/20/2011 [facility] Height 149.86 cm 02/19/2011 [facility] Weight 100.0 02/19/2011 [facility] Heart Rate 104.0 02/19/2011 [facility] Temperature Oral (F) 98.6 F 02/19/2011 [facility] Respitory Rate 20.0 02/19/2011 [facility] Center Systolic (mm Hg) 128.0 02/19/2011 [facility] dical Center Diastolic (mm Hg) 63.0 02/19/2011 [facility] edical Center Respitory Rate 20.0 02/19/2011 [facility] Center Systolic (mm Hg) 115.0 02/19/2011 [facility] dical Center Diastolic (mm Hg) 58.0 02/19/2011 [facility] edical Center Heart Rate 110.0 02/19/2011 [facility] Temperature Oral (F) 97.5 F 02/19/2011 [facility] Diastolic (mm Hg) 64.0 02/18/2011 [facility] edical Center Temperature Oral (F) 98.4 F 02/18/2011 [facility] Heart Rate 108.0 02/18/2011 [facility] Respitory Rate 18.0 02/18/2011 [facility] Center Systolic (mm Hg) 152.0 02/18/2011 [facility] dical Center Height 149.86 cm 01/31/2011 [facility] Weight 100.455 01/31/2011 [facility] Center Systolic (mm Hg) 116.0 01/31/2011 [facility] dical Center Diastolic (mm Hg) 55.0 01/31/2011 [facility] edical Center Peripheral Pulse Rate 67.0 01/31/2011 [facility] Respitory Rate 20.0 01/31/2011 [facility] Center Temperature Oral (F) 98.5 F 01/31/2011 [facility] Peripheral Pulse Rate 65.0 01/31/2011 [facility] Systolic (mm Hg) 148.0 01/31/2011 [facility] dical Center Diastolic (mm Hg) 58.0 01/31/2011 [facility] edical Center Diastolic (mm Hg) 62.0 01/31/2011 [facility] edical Center Peripheral Pulse Rate 64.0 01/31/2011 [facility] Systolic (mm Hg) 153.0 01/31/2011 [facility] Respitory Rate 21.0 01/31/2011 [facility] Temperature Oral (F) 97.8 F 01/31/2011 [facility] Respitory Rate 16.0 01/31/2011 [facility] Temperature Oral (F) 98.1 F 01/31/2011 [facility] Height 149.86 cm 01/23/2011 [facility] Weight 89.0 01/23/2011 [facility] Encounters Location Location Encounter Encounter Reason Attending ADM DC Stat us Source Details Type Number For Provider Date Date Visit [facility] AA [id number] LIFE ANKUR CARABALLO 01/23 01/23 Active [facility] 0 FLIGHT [facility] Inpatient [id number] BRAIN KELLEY DAY 01/23 01/31 Act kimberly [facility] 7 MASS/DONNIE [facility] KE Center IR [id number] BRAIN MEILANI 01/31 02/19 Active 4 MASS MAP Rehabili tation [facility] Inpatient [id number] HYDROCEP KELLEY DAY 02/19 02/26 A ctive [facility] 0 HALUS [facility] IR [id number] SDH MEILANI 02/26 03/07 Active 9 MAPA Rehabili tation [facility] OU [id number] DEHYDRAT MI 03/14 03/15 Active M [facility] 1 ION KORIMILLI [facility] Inpatient [id number] DEHYDRAT NOÉ 03/22 03/25 Activ e [facility] 2 ION,PAIN [facility] CONTROL Center MNA Phone [id number] 08/16 08/18 Misch er Neurosurger Message Neur o y [facility] Inpatient [id number] Malia 08/16 08/20 [facility] Jorge Alberto 5 Dayan [facility] Inpatient [id number] Sadi 09/09 09/10 Jorge Alberto 0 [place] [facility] Inpatient [id number] Kasi Scottby 09/12 09/20 [facility] Jorge Alberto [facility] Observation [id number] David 09/21 09/23 [facility] [place] 3 Hellen [facility] Outpt Diag [id number] Suur 10/21 10/22 [facility] 3 Bil P [facility] [facility] Outpt Diag [id number] Suur 11/18 11/19 [facility] 4 Bil P [facility] [facility] Emergency [id number] Abel 11/29 11/29 [facility] Jorge Alberto 6 Stan [facility] Inpatient [id number] Luther 12/24 01/10 [facility] 7 Taj [facility] Inpatient [id number] Jai 02/05 03/04 [facility] Jorge Alberto 0 Hernán [facility] Inpatient [id number] Keagan 11/21 12/19 [facility] 5 Christopher [facility] Outpt Diag [id number] Andre 01/04 01/05 [facility] 5 Fernandez Her restrepo [facility] Inpatient [id number] David 02/14 02/26 [facility] 0 Hellen [facility] Procedures Procedure Code Date Perfomer Comments Source Transcatheter [id number] 02/21/2019 [facility] retrieval, Medical percutaneous, of Center intravascular foreign body (eg, fractured venous or arterial catheter), includes radiological supervision and interpretation, and imaging guidance (ultrasound or fluoroscopy), when performed Selective catheter [id number] 08/19/2018 [facility] placement, vertebral Medi roger artery, unilateral, Cente r with angiography of the ipsilateral vertebral circulation and all associated radiological supervision and interpretation, includes angiography of the cervicocerebral arch, when performed Insertion or [id number] 01/26/2011 [facility] Replacement of Skull Medi roger Tongs or [facility] Center Traction Device Other Excision or [id number] 01/26/2011 [facility] Destruction of Lesion Med ical or Tissue of Brain Center Excision of Lesion or [id number] 01/24/2011 [facility] Tissue of Cerebral Medica l [place] Intracranial Pressure 01.10 01/24/2011 [facility] Transfusion of Packed [id number] 01/24/2011 [facility] Cervical laminectomy [id number] [facility] her Neuro,[facility] DOMONIQUE Azul, DOMONIQUE Kelly,[facility] [place] section [phone] [facility], DOMONIQUE Azul, DOMONIQUE Kelly,[facility] Resection [phone] [facility], DOMONIQUE Azul, DOMONIQUE Kelly,[facility] Shunt construction [phone] [facility], DOMONIQUE Azul, DOMONIQUE Kelly,[facility] Tonsillectomy [phone] [facility], DOMONIQUE Kelly,[facility] [place] Assessment and Plan Assessment and Plan Date Source Extracted from:Title: Neurology Progress Note 02/27/2020 [facility] Author: Marlen Parra MD Date: 02/25/20 Neurology Progress Note Subjective: Patient feeling much better today, voice is stronger. Patient feeling well, eating breakfast. HPI: Mrs. Franci Floyd is a 75 y/o patient w ith history of dementia, meningioma s/p resection 10 years ago with VPS, diabetes type 2, HTN, HLD, CAD, HFrEF 50%, hypothyroidism, JD, seropositive myasthenia gravis (anti-striated muscle antibodies) , and recent spinal surgery around 3 weeks who presented as a direct transfer from [facility] due to concerns of MG exacerbation. She initially pres ented one week ago to [facility] with hypoglicemia and was found to have PNA. She completed antibiotics (Cefuroxime and Clynda per external Rx) and was discharged 5 days ago with PT. Per , the next day of her discharged she suddenly developed trouble standing due to lower extremity weakness, hypophonia and dysarthria. She didn't have any respiratory problems. She was broug ht back to [facility] where she was eval uated by Neurology and didn't think that it was a MG exacerbation so patient's family requested transfer to [facility]. At [facility] patient had MBS T which showed severe dysphagia. Current ly, patient has no dysarthria but continuos with hypophonia. She denies any SOB. Due to her dementia she is a poor historian but denies any weakness. Hospital course: 02/15: unable to obtain IV access, tranfusion medicine consul porsche 02/16: plex day 06/05 02/17: no acute events overnight, NIF/FVC improving 02/18: Overnight elevated glucose readings started on glargi ne. Plex day 07/06 02/19: NIF/FVC stable 02/20: Elevated blood glucose readings a s high as 470, hospitalist consulted for diabetes managemenet and workup for possible infection given uptrending white ocunt 02/21: Hypotensive event in AM, resolved with fluid resusciation, likely 2/2 dysautonomoia from plex, dehydration and lisinopril 02/22: Started on bactrim for UTI 02/23: Passed swallow evaluation for cho pped solids and nectar thick liquids after repeat MBSS. 02/24: Last day of plex today Review of Systems: Unable to obtain as patient did not cooporate Allergies: Adhesive Tape, Cortizone-10 , PHENobarbi costa , Aspirin (severe chest pain), Cefepime , Ciprofloxacin , Erythromycin ,Gabapentin, Immune globulin intravenous - Blisters , Penicillins (rash) , Phenobarbital (rash) Objective: Vitals and Temp: Vitals Tmp(F) Pulse BP RR SpO2 FIO2 02/24 13:00 ---- 87 ----- 30 96 --- 02/24 12:00 97.6 79 98/65 33 96 --- 02/24 11:00 ---- 80 156/67 30 95 --- 02/24 10:00 ---- 77 129/58 32 96 --- 02/24 09:00 ---- 75 ----- 29 95 --- 24 Hr Tmax: 98.9F (37.17c) at 02/23 19:0 9 Vital Signs are the last 5 in the past 48 hours. Labs (Last four charted values) WBC H 17.9 (JAN 2 6) H 17.1 (FEB 23) H 23.1 (FEB 21) H 23.7 (FEB 21) Hgb L 9.6 (FEB 24 ) L 9.3 (FEB 23) L 10.1 (FEB 21) L 10.7 (FEB 21) Hct L 31.0 (JAN 2 6) L 30.5 (FEB 23) L 32.8 (FEB 21) L 34.5 (FEB 21) Plt L 94 (FEB 24) L 88 (FEB 23) L 101 (FEB 21) L 106 (FEB 21) Na 143 (FEB 24) 143 (FEB 23) 143 (FEB 21) 138 (FEB 20) K 4.1 (FEB 24) 4.0 (FEB 23) 3.7 (FEB 21) 4.4 (FEB 20) CO2 24 (FEB 24) 24 (FEB 23) L 23 (FEB 21) 26 (FEB 20) Cl H 111 (FEB 24 ) H 113 (FEB 23) H 110 (FEB 21) 107 (FEB 20) Cr 0.75 (FEB 24) 0.80 (FEB 23) 1.18 (FEB 21) 1.10 (FEB 20) BUN 16 (FEB 24) 16 (FEB 23) 22 (FEB 21) 20 (FEB 20) Glucose Random H 257 (SE P ) H 152 (FEB 23) H 154 (FEB 21) C 452 (FEB 20) Mg 1.9 (FEB 24) 1.9 (FEB 23) 2.1 (FEB 21) 2.2 (FEB 20) Phos 2.6 (FEB 24) 2.7 (FEB 23) 4.4 (FEB 21) 2.8 (FEB 20) Ca 9.0 (FEB 24) 8.6 (FEB 23) 8.7 (FEB 21) 8.6 (FEB 20) PT 14.2 (FEB 20) 14.2 (FEB 18) 14.4 (FEB 18) H 17.5 (FEB 17) INR 1.10 (FEB 20) 1.11 (FEB 18) 1.10 (FEB 18) H 1.42 (FEB 17) PTT H 43.0 (SEP 2 2) H 37.1 (FEB 18) H 37.8 (FEB 18) H 82.9 (FEB 17) Total CK 25 (FEB 16) Medications (33) Active Scheduled Meds (15): 02/17/20 clonazePAM 0.25 mg PO Q8H 02/21/20 (Suspended) furosemide (furosemide 20 mg oral tabl et) 20 mg GT Daily 02/25/20 heparin 5,000 unit SUB-Q Q12H 02/22/20 insulin glargine 15 unit SUB-Q BID 0 ml/hr 02/22/20 (Suspended) insulin lispro 3 unit SUB-Q TID-Before Meals 02/17/20 levothyroxine 88 microgram PO Q630AM 02/19/20 lidocaine topical (lidocaine to pical patch (5% film)) 1 patch TOP Daily 02/17/20 lisinopril 5 mg GT Daily 02/16/20 predniSONE 20 mg PO Daily 02/20/20 pregabalin (Lyrica) 25 mg PO Q8H-01 02/19/20 remove patch 1 patch TOP Bedtime 02/18/20 rosuvastatin 10 mg PO Bedtime 02/17/20 sertraline 25 mg GT Daily 02/22/20 sulfamethoxazole-trimethoprim ( Bactrim DS 800 mg- 160 mg oral tablet) 1 tab PO [id number] 02/17/20 thiamine 200 mg PO Daily Unscheduled Meds: None PRN Meds (14): 02/21/20 Dextrose 50% in Water IV (D-50-W) 12.5 gm IVP PRN 02/21/20 Dextrose 50% in Water IV (D-50-W) 25 gm IVP PRN 02/17/20 acetaminophen (Tylenol) 650 mg PO Q8H 02/16/20 clonazePAM 0.5 mg PO BID 02/21/20 glucagon 1 mg IM PRN 02/21/20 insulin lispro 2 unit SUB-Q TID-Before Meals 02/21/20 insulin lispro 4 unit SUB-Q TID-Before Meals 02/21/20 insulin lispro 6 unit SUB-Q TID-Before Meals 02/21/20 insulin lispro 8 unit SUB-Q TID-Before Meals 02/21/20 insulin lispro 10 unit SUB-Q TID-Before Meals 02/21/20 insulin lispro 1 unit SUB-Q Bedtime 02/21/20 insulin lispro 2 unit SUB-Q Bedtime 02/21/20 insulin lispro 3 unit SUB-Q Bedtime 02/21/20 insulin lispro 4 unit SUB-Q Bedtime One Time Meds (3): 02/25/20 (Completed) albumin human (alb umin human 5% intravenous solution) 2,500 mL IV ONCE 02/25/20 (Completed) calcium gluconate 2.5 gm IV ONCE 02/25/20 (Ordered) heparin MISC ONCE Continuous Infusions (1): 02/22/20 Lactated Ringers Injection IV 1 ,000 mL (Lactated Ringers IV 1,000 mL) 1,000 mL 100 ml/hr Physical Exam: General: laying comfortably in bed, well nourished HEENT: NCAT CV: regular rate, intact peripheral pulses Pulm: breathing comfortably, no wheezing , symmetric chest expansion; single breath count 20 GI: soft, non-tender, non-distended Neurology: Mental Status:A&Ox3; good attention and concentration Language: hypophonic Speech: no dysarthria CN: EOMI, sustained upgaze 15 secs Motor: 5/5 strength in bilateral biceps/ triceps/deltoid, 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 Signed By: Sachi Villaseñor MD A&P: Mrs. Floyd is a 75 y/o patient w ell known to our service with history of meningioma s/p resection 10 years ago with VPS, right eye blindness, diabetes type 2, HTN, HLD, CAD, hypothyroidi sm, seropositive myasthenia gravis, and recent spinal surgery who presented as a direct transfer for possible MG exacerbation. On presentation, she had hypophonia, dysphagia, significant fatiguable weak ness and low single breath count c/w MG exacerbation. Given prior reaction to IVIG, we decided to initiate treatment of exacerabtion with plasmapharesis. We plan a total of 5 sessions, and she has compl eted 4/5 so far with objective improveme nt in respiratory function as well as hypophonia. 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 - Cont Prednisone 20 mg qd - PLEX started 02/17, completes 5 cycles today - Incentive spirometery daily - Continue home CPAP at night - Recommend avoiding medications that ca n potentiate MG such as statins (need to perform risk/benefit eval) especially since this patient has significant cardiac hx, avoid magnesium, betablockers, neuro muscular blocking agents routinely used for intubation, aminoglycosides, fluoroquinolones need to be used with caution, medications that can cause respiratory depression. C5-6 ACDF, posterior spinal fusion with open arthrodesis C5-T1 and C6-7 laminectomy with central cord syndrome -Recent spinal surgery on 12/05/19 -May consider repeat imaging pending PLEX if no improvements in strength Lower extremity pain - Start lyrica 50mg TID, monitor PSYCH Depression Anxiety - Continue home sertraline RESP JD - Continue home CPAP - Stable on RA CV Essential hypertension - BP control, goal SBP < 150 - Discontinue home Amlodipine - Continue Lisinopril and Furosemide. Ca n maximize lisinopril as needed for elevated BP. Hyperlipidemia - Continue rovustatin 10mg po qhs. CAD - continue statin Congestive heart failure Systolic heart failure EF 45% Diastolic heart failure - Continue home lasix - avoid IV fluids if possible RENAL - Baseline creatinine 0.6 - No acute concerns Electrolyte abnormalities - Replete - Monitor labs ENDO Type 2 DM - SSI for goal FSBG 140-180 - Hospitalist consulted, appreciate recs - Diabetic diet Hypothyroidism - Continue home levothyroxine HEME Microcytic Anemia - Transfuse if Hb <7 Thrombocytopenia, concern for HIT - 4T score 5 - Heparin resumed - HIT Ab testing negative ID Leukocytosis Complicated UTI - likely from chronic steroid use vs new infection - UA with 16 WBC and leukocyte esterase/nitrites - Start bactrim DS 02/21 (no dose adjustment necessary as Cr Cl 56) Nutrition Obesity BMI 35 with Hypertension and or DM - Dietitian consult Prophylaxis DVT: Heparin SubQ GI: None Bowel regimen: Docusate Senna Diet: dysphagia chopped with nectar thick liquids, 1:1 meal assistance Code Status: Full Code Dispo: SNF vs back to personal group home /assisted living with home health PT/OT/MEDICAL STAFF SPECIALIST Marlen Parra MD PGY-2 | Neurology [facility] CPT: 57769 DX: G70.01 I have examined this patient with the re sident, Dr. Parra, and agree with the documentation and findings as recorded. I concur with the plan as outlined. 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 We are consulted to assistformanagement ofhyperglycemiaand other general medical issues. 1.Myasthenia gravis in crisis(G70.01) currently on prednisone and undergoing PLEX 2.DM2 (diabetes mellitus, type 2)(E11.9) no further hypoglycemia poor appetite would do 15units BID if appetite is impr oving. if NPO for procedure, can half dose ISS 3.Hypertension(I10) contlisinopril 5 mg daily 4.Hyperlipidemia(E78.5) 5.CAD (coronary artery disease)(I25.10) recs starting asa crestor 6.Systolic and diastolic CHF, chronic(I50.42) not in exacerbation hold lasix for now due to poor intake watch for sign of fluid overload 7.Hypothyroidism(E03.9) cont synthroid 8.JD (obstructive sleep apnea)(G47.33) Hospitalist service signs off. please reconsult as needed Dr. Akash Lamar (Noemi)[facility] Please contact me via [employer] Extracted from:Title: General Neurology HPI Author: Natalie Rodriguez MD Date: 02/15/20 Neurology H&P Chief Complaint: Possible MG exacerbation HPI: Mrs. Franci Floyd is a 75 y/o patient w ith history of dementia, meningioma s/p resection 10 years ago with VPS, diabetes type 2, HTN, HLD, CAD, HFrEF 50%, hypothyroidism, JD, seropositive myastenia g ravis (anti-striated muscle antibodies), and recent spinal surgery around 3 weeks who presented as a direct transfer from [facility] due to concerns of MG exacerbation. She initially prese nted one week ago to [facility] with hypoglicemia and was found to have PNA. She completed antibiotics (Cefuroxime and Clynda per external Rx) and was discharged 5 days ago with PT. Per penny fitzgerald, the next day of her discharged s he suddenly developed trouble standing due to lower extremity weakness, hypophonia and dysarthria. She didn't have any respiratory problems. She was tiffanie t back to [facility] where she was evalu ated by Neurology and didn't think that it was a MG exacerbation so patient's family requested transfer to [facility]. At [facility] patient had MBST which showed severe dysphagia. Currentl y, patient has no dysarthria but continuos with hypophonia. She denies any SOB. Due to her dementia she is a poor historian but denies any weakness. ROS: Unable to obtain due to dementia PMH: Dementia Meningioma s/p resection Diabetes type 2 HTN HLD CAD HFrEF 50% Hypothyroidism JD Seropositive myastenia gravis PSH: Cervical laminectomy section Meningioma s/p resection Resection Shunt construction Tonsillectomy FMH: Crohn's disease: Grandparent. Heart attack: Father. High blood pressure: Mother and Father. Type 2 diabetes mellitus: Grandparent. Social History: Patient is and l anson with her . Drinks alcohol 1- 2 timed a year and denies tobacco Medications: - Prednisone 20mg - Unsure dosage - Amlodipine 10mg - Levothyroxine 88mcg - Sertraline 25mg - Clonazepam PRN - Lisinopril - Rosuvastatin - Insulin - Furosemide 20mg Allergies: Adhesive Tape Cortizone-10 PHENobarbital Aspirin (severe chest pain) Cefepime Ciprofloxacin Erythromycin Gabapentin Immune globulin intravenous - Blisters Penicillins (rash) Phenobarbital (rash) Review of Systems: GEN: no fever, chills, weight loss, fatigue EYES: no blurred vision, double vision CARDIO: no chest pain, palpitations RESP: no shortness of breath, cough GI: no nausea, vomiting, diarrhea, abdominal pain : no frequency, dysuria, hematuria NEURO: see HPI SKIN: no rashes, lesions MSK: Generalized muscle pain ENDO: no heat or cold intolerance HEME: no lymph node enlargement, easy bruising Objective: Vitals Tmp(F) Pulse BP RR SpO2 FIO2 02/14 20:12 98.2 69 158/69 20 --- --- 02/14 18:15 98.2 72 132/69 20 94 --- 24 Hr Tmax: 98.2F (36.78c) at 02/14 20:1 2 Vital Signs are the last 5 in the past 48 hours. Physical Exam: General: laying comfortably in bed, well nourished HEENT: NCAT CV: regular rate, intact peripheral pulses Pulm: breathing comfortably, no wheezing, symmetric chest ex pansion GI: soft, non-tender, non-distended Neurology: Mental Status:A&Ox3; good attention and concentration; normal fund of knowledge and memory Language: intact fluency, comprehension, naming, and repetit ion Speech: no dysarthria CN: PERRLA, 3 mm BL, EOMI, full VF in L eye; no facial asymmetry or facial weakness noted, no ptosis identified with upward gaze, facial sensation intact; SCM and traps are 5/5 bilaterally Motor: R L Deltoid 4/5 4/5 Tricep 4+/5 4+/5 Bicep 5/5 5/5 Music Intern 5/5 5/5 Iliopsoas 4/5 4/5 Quadricep 4/5 4/5 Tibialis anterior 5/5 5/5 Gastrocnemius 5/5 5/5 Tone: normal Bulk: normal Sensory:intact to light touch Reflexes: R L Bicep 2+ 2+ Tricep 2+ 2+ Brachioradialis 2+ 2+ Patellar 2+ 2+ Ankle 2+ 2+ Plantar Downgoing Downgoing Hoffmans: absent Coordination: no dysmetria on FTN or HTS bilaterally Gait:Deferred Labs: Pending. OSH labs reviewed; remark able for Leukocytosis to 19.1 and Anemia Hb 11.8, Crea 0.4 EKG: Reviewed previous EKG - Sinus rythm Imaging: Chest x ray: Pending A&P: Mrs. Floyd is a 75 y/o patient w ith history of dementia, meningioma s/p resection 10 years ago with VPS, right eye blindness, diabetes type 2, HTN, HLD, CAD, hypothyroidism, seropositive myasthenia gravis, and recent spinal hendrix rgery who presents as a direct transfer for possible MG exacerbation. Currently, her clinical exam and symptoms are not clearly consistent with exacerbation and s he's not having respiratory compromised. She will be re evaluated tomorrow morning to decide if PLEX needs to be ordered. She had a reaction to IVG with blisters in her foot on 03/2019 so family would like to avoid IVIG. 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 Need to clarif y baseline with family. Family was unable to determine in what ways patient was different than baseline upon arrival overnight via phone conversation, and they were unable to video conference at that time. - Incentive spirometer - Continue home CPAP - PT, ST PSYCH Depression Anxiety - Continue home sertraline RESP JD - Continue home CPAP - Stable on RA CV Essential hypertension - BP control, goal SBP < 150 - Continue home Amlodipine, Lisinopril and Furosemide Hyperlipidemia - Continue statin HFrEF 50% - Continue home lasix RENAL - Baseline creatinine 0.6 - No acute concerns Electrolyte abnormalities - Replete - Monitor labs ENDO Type 2 DM - SSI for goal FSBG 140-180 - Diabetic diet when appropriate Hypothyroidism - Continue home levothyroxine HEME Mycrocitic Anemia - Hb 11.6 per OSH records - Transfuse if Hb <7 ID Leukocytosis - WBC 19.1 per OSH records - CXR, UA w/reflex cx - Pending labs Nutrition Obesity BMI 35 with Hypertension and or DM - Dietitian consult Prophylaxis DVT: Heparin SubQ GI: None Bowel regimen: Docusate Senna Diet: NPO Code Status: Full Code Dispo: Pending THE FOLLOWING WERE PRESENT ON ADMISSION: 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 Upon examination this morning, MS: AAOx3 Speech: hypophonic, sparse but appropria tely replied to questions, comprehension intact CN: EOMI, face symmetric, tongue midline on protrusion Motor: AG in all 4 Sensory: intact to light touch in all 4 Single breath count: 19 Did get in touch with patient's , who did tell us that over the past 2 weeks he has noticed a decline with increased coughing and a soft voice. He notes that when she rests her voice gets be tter. She was operated by Dr. Mcmullen and there was concern that some of the screws in her cervical spine had been displaced. He asked for us to get in touch with Dr. Izaguirre who is Ms. Floyd's outpatient neurologist. He did also hannah mmend that we give her clonazepam as she can become quite uncooperative without it. By afternoon, patient appeared a bit mor e tachypenic with single breath count of 9. Given bulbar symptoms and concern for respiratory insufficiency, we had a discussion with Dr. Izaguirre who agreed that patient would benefit from plasmaphares is. Transfusion medicine has been consulted to begin plex as early as tomorrow. We are pending vascular access, for which IR consult has been placed. was updated about plan in the evening. 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 Exacerbation - Monitor closely - NIF, FVC q3-6 hours - Continue home pyridostigmine 60mg q8H - Resume home prednisone 20mg daily - Incentive spirometery - Continue home CPAP at night Dysphagia - NPO per speech therapy - Pending MBS - Can give meds in puree/pudding per MEDICAL STAFF SPECIALIST PSYCH Depression Anxiety - Continue home sertraline - Hold clonazepam RESP JD - Continue home CPAP Concern for respiratory insufficiency - Will avoid medications that can increase weakness - NIF, FVC q3-6 hours - Monitor closely CV Essential hypertension - BP control, goal SBP < 150 - Will hold amlodipine - C/w lisinopril and furosemide Hyperlipidemia - Pending repeat lipid profile - Will hold statin HFrEF 50% - Continue home lasix RENAL - Baseline creatinine 0.6 - No acute concerns Electrolyte abnormalities - Replete - Monitor labs ENDO Type 2 DM - SSI for goal FSBG 140-180 - Diabetic diet when appropriate Hypothyroidism - C/w home levothyroxine HEME Microcytic nemia - Transfuse if Hb <7 ID Leukocytosis - WBC 19.1 per OSH records; 16.1 here - CXR, UA unremarkable though questionable haziness in RLL o n xray Nutrition Obesity BMI 35 with Hypertension and or DM - Dietitian consult Marlen Parra MD PGY-2 | Neurology [facility] Neurology staff Teaching physician statement I reviewed the residents note, personall y reviewed all the patients labs and imaging studies and personally performed a complete neurological exam. I discussed the assessment and plan of care and agree with the plan as outlined in the resident's note. David Macedo, DO [facility], Neurohospitalist Landscape Crew Member of Neurology Extracted from:Title: General Neurology Progress Note 2019 [facility] Author: Marlen Parra MD Date: 02/19/20 Neurology Progress Note Subjective: Overnight, patient declined blood pressure measurement, insulin and AM labs. She had elevated blood glucose readings. She said she feels worse today because of pain in her right leg at yaya on site. Later on rounds, was at bedside and he was updated about the plan. HPI: Mrs. Franci Floyd is a 75 y/o patient w ith history of dementia, meningioma s/p resection 10 years ago with VPS, diabetes type 2, HTN, HLD, CAD, HFrEF 50%, hypothyroidism, JD, seropositive myasthenia gravis (anti-striated muscle antibodies) , and recent spinal surgery around 3 weeks who presented as a direct transfer from [facility] due to concerns of MG exacerbation. She initially pres ented one week ago to [facility] with hypoglicemia and was found to have PNA. She completed antibiotics (Cefuroxime and Clynda per external Rx) and was discharged 5 days ago with PT. Per , the next day of her discharged she suddenly developed trouble standing due to lower extremity weakness, hypophonia and dysarthria. She didn't have any respiratory problems. She was broug ht back to [facility] where she was eval uated by Neurology and didn't think that it was a MG exacerbation so patient's family requested transfer to [facility]. At [facility] patient had MBS T which showed severe dysphagia. Current ly, patient has no dysarthria but continuos with hypophonia. She denies any SOB. Due to her dementia she is a poor historian but denies any weakness. Hospital course: 02/15: unable to obtain IV access, tranfusion medicine consul porsche 02/16: plex day 06/05 02/17: no acute events overnight, NIF/FVC improving 02/18: Overnight elevated glucose readings started on glargi ne. Plex day 07/06 Review of Systems: GEN: no fever, chills, weight loss, fatigue EYES: no blurred vision, double vision CARDIO: no chest pain, palpitations RESP: no shortness of breath, cough GI: no nausea, vomiting, diarrhea, abdominal pain : no frequency, dysuria, hematuria NEURO: see HPI SKIN: no rashes, lesions MSK: Generalized muscle pain ENDO: no heat or cold intolerance HEME: no lymph node enlargement, easy bruising Allergies: Adhesive Tape, Cortizone-10 , PHENobarbi costa , Aspirin (severe chest pain), Cefepime , Ciprofloxacin , Erythromycin ,Gabapentin, Immune globulin intravenous - Blisters , Penicillins (rash) , Phenobarbital (rash) Objective: Vitals and Temp: Vitals Tmp(F) Pulse BP RR SpO2 FIO2 02/18 12:00 97.6 88 ----- 27 96 --- 02/18 10:00 ---- 82 140/85 32 --- --- 02/18 08:00 97.8 68 ----- 24 --- --- 02/18 06:00 ---- 79 ----- 22 --- --- 02/18 05:00 ---- 69 ----- 21 96 --- 24 Hr Tmax: 97.8F (36.56c) at 02/18 08:0 0 Vital Signs are the last 5 in the past 48 hours. Labs (Last four charted values) WBC H 18.9 (SEP 2 0) H 16.3 (JAN 19) H 16.0 (JAN 18) H 16.8 (SEP 16) Hgb L 11.2 (SEP 2 0) L 11.4 (SEP 19) 12.7 (SEP 18) L 11.6 (SEP 16) Hct 37.1 (JAN 20) 37.0 (SEP 19) 41.4 (SEP 18) 38.6 (SEP 16) Plt 134 (SEP 20) 151 (SEP 19) 161 (SEP 18) 156 (SEP 16) Na 144 (SEP 20) 141 (SEP 19) 135 (SEP 18) 140 (SEP 16) K 3.6 (SEP 20) L 3.3 (SEP 19) L 3.4 (SEP 18) 4.1 (SEP 16) CO2 29 (SEP 20) 28 (SEP 19) 31 (SEP 18) 26 (SEP 16) Cl H 110 (SEP 20 ) 106 (SEP 19) 101 (SEP 18) 108 (SEP 16) Cr 0.67 (JAN 20) 0.67 (SEP 19) 0.68 (SEP 18) 0.77 (SEP 16) BUN 15 (SEP 20) 12 (SEP 19) 11 (SEP 18) 19 (SEP 16) Glucose Random H 102 (SE P 20) H 210 (SEP 19) H 215 (SEP 18) H 219 (SEP 16) Mg 1.8 (SEP 20) L 1.6 (SEP 19) Phos 2.5 (SEP 20) 3.5 (SEP 19) 3.0 (SEP 18) Ca L 8.4 (SEP 20 ) 8.7 (SEP 19) L 8.4 (SEP 18) L 8.1 (SEP 16) PT 14.2 (SEP 20) 14.4 (SEP 20) H 17.5 (SEP 19) INR 1.11 (SEP 20) 1.10 (SEP 20) H 1.42 (SEP 19) PTT H 37.1 (SEP 2 0) H 37.8 (SEP 20) H 82.9 (SEP 19) Total CK 25 (SEP 18) Physical Exam: General: laying comfortably in bed, well nourished HEENT: NCAT CV: regular rate, intact peripheral pulses Pulm: breathing comfortably, no wheezing, symmetric chest ex pansion GI: soft, non-tender, non-distended Extremities: alex site tender, some blood under Tegaderm dressing Neurology: Mental Status:A&Ox3; good attention and concentration Language: hypophonic Speech: no dysarthria CN: PERRLA, 3 mm BL, EOMI, sustain upgaze 15 secs Motor: did not cooporate with full muscl e testing today but was noted to be antigravity in all 4 Gait:Deferred EKG: Reviewed previous EKG - Sinus rythm Imaging: reviewed A&P: Mrs. Floyd is a 75 y/o patient w ell known to our service with history of meningioma s/p resection 10 years ago with VPS, right eye blindness, diabetes type 2, HTN, HLD, CAD, hypothyroidi sm, seropositive myasthenia gravis, and recent spinal surgery who presented as a direct transfer for possible MG exacerbation. On presentation, she had hypophonia, dysphagia, significant fatiguable weak ness and low single breath count c/w MG exacerbation. Given prior reaction to IVIG, we decided to initiate treatment of exacerabtion with plasmapharesis. We plan a total of 5 sessions, and she has compl eted 2/5 so far with objective improveme nt in respiratory function as well as hypophonia. We did update her at bedside and answered all his questions. 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 - Cont Prednisone 20 mg qd - PLEX started 02/17, continue for total of 5 cycles, monito r for improvement - Incentive spirometery daily - Continue home CPAP at night - PT, ST --> family more willing to consider IPR - Recommend avoiding medications that ca n potentiate MG such as statins (need to perform risk/benefit eval) especially since this patient has significant cardiac hx, avoid magnesium, betablockers, neuro muscular blocking agents routinely used for intubation, aminoglycosides, fluoroquinolones need to be used with caution, medications that can cause respiratory depression. C5-6 ACDF, posterior spinal fusion with open arthrodesis C5-T1 and C6-7 laminectomy with central cord syndrome -Recent spinal surgery on 12/05/19 -May consider repeat imaging pending PLEX PSYCH Depression Anxiety - Continue home sertraline RESP JD - Continue home CPAP - Stable on RA CV Essential hypertension - BP control, goal SBP < 150 - Discontinue home Amlodipine - Continue Lisinopril and Furosemide. Ca n maximize lisinopril as needed for elevated BP. Hyperlipidemia - Continue rovustatin 10mg po qhs. CAD - continue statin Congestive heart failure Systolic heart failure EF 45% Diastolic heart failure - Continue home lasix - avoid IV fluids if possible RENAL - Baseline creatinine 0.6 - No acute concerns Electrolyte abnormalities - Replete - Monitor labs ENDO Type 2 DM - SSI for goal FSBG 140-180 - Poorly controlled overnight, glargine 15U added - Diabetic diet when appropriate Hypothyroidism - Continue home levothyroxine HEME Microcytic Anemia - Transfuse if Hb <7 ID Leukocytosis - likely from chronic steroid use vs recent PNA - LA 1.6, procal <0.05 - CXR w/o clear consolidation - UA negative Nutrition Obesity BMI 35 with Hypertension and or DM - Dietitian consult Prophylaxis DVT: Heparin SubQ GI: None Bowel regimen: Docusate Senna Diet: dysphagia chopped with nectar thick liquids, 1:1 meal assistance Code Status: Full Code Dispo: likely IPR Marlen Parra MD PGY-2 | Neurology [facility] Neurology staff Teaching physician statement I reviewed the residents note, personall y reviewed all the patients labs and imaging studies and personally performed a complete neurological exam. I discussed the assessment and plan of care and agree with the plan as outlined in the resident's note. Respiratory status improved, weakness st ill present, difficult to examine given central catheter line in right groin and cooperation during exam, complaining of pain, will change dressing. David Macedo DO [facility], Neurohospitalist Landscape Crew Member of Neurology Extracted from:Title: Transfusion Medicine/Apheresis Consult ation Note Author: Doug Warner MD Date: 02/17/20 Transfusion Medicine/Apheresis Consultation Note DATE OF CONSULT:02/17/2020 CONSULTING TEAM:Neurology team REASON FOR CONSULTATION:Therapeutic Plasma Exchange HISTORY OF PRESENT ILLNESS: Mrs. Franci Floyd is a 75 y/o patient w ith history of dementia, meningioma s/p resection 10 years ago with VPS, diabetes type 2, HTN, HLD, CAD, HFrEF 50%, hypothyroidism, JD, seropositive myasthenia gravis (anti-striated muscle antibodies) , and recent spinal surgery around 3 weeks who presented as a direct transfer from [facility] due to concerns of MG exacerbation. She initially pres ented one week ago to [facility] with hypoglycemia and was found to have PNA. She completed antibiotics (Cefuroxime and Clynda per external Rx) and was discharged 5 days ago with PT. Per , the next day of her discharged she suddenly developed trouble standing due to lower extremity weakness, hypophonia and dysarthria. She didn't have any respiratory problems. She was broug ht back to [facility] where she was eval uated by Neurology and didn't think that it was a MG exacerbation so patient's family requested transfer to [facility]. At [facility] patient had MBS T which showed severe dysphagia. Current ly, patient has no dysarthria but continuos with hypophonia. The patient is allergic to immunoglobin. She denies any SOB. Due to her dementia she is a poor historian but denies any weakness. Transfusion medicine/apheresis was consu lted for therapeutic plasma exchange for worsening myasthenia gravis. According to the 2019, AFSA guideline, w orsening myasthenia gravisis considered a Category 1indication for plasmapheresis. REVIEW OF SYSTEMS: Only parts of ROS could be finished due to dementia. Constitutional: No fever. Respiratory: No shortness of breath, No cough, No wheezing. Gastrointestinal: No abdominal pain. Skin: multiple bruising. PAST MEDICAL HISTORY: Historical Blindness of one eye DM - Diabetes mellitus Heart failure HTN - Hypertension MG, crisis (myasthenia gravis) Morbid obesity JD - Obstructive sleep apnea Type 2 diabetes mellitus with hyperglycemia PAST SURGICAL HISTORY: Cervical laminectomy section Meningioma s/p resection Resection Shunt construction Tonsillectomy FAMILY HISTORY:Crohn's disease: Grandpar ent. Heart attack: Father. High blood pressure: Mother and Father. Type 2 diabetes mellitus: Grandparent. SOCIAL HISTORY: Smoking Status - 02/19/2011 None Alcohol Current, Frequency: 1-2 times per year., 09/08/2018 Substance Abuse Use: None., 09/08/2018 Tobacco Use: Never smoker. 02/15/2020 ALLERGIES: Adhesive Tape Cortizone-10 PHENobarbital aspirin (severe chest pain) Cefepime Ciprofloxacin Erythromycin Gabapentin Immune globulin intravenous Penicillins (rash) Phenobarbital (rash) MEDICATIONS: - Prednisone 20mg - Unsure dosage - Amlodipine 10mg - Levothyroxine 88mcg - Sertraline 25mg - Clonazepam PRN - Lisinopril - Rosuvastatin - Insulin -Furosemide 20mg PHYSICAL EXAM: Vitals: T: 96 F (Axillary) HR: 67(Peripheral) RR: 24 BP: 15 8/69 General: not alert or oriented x3 Eye: Pupils are equal, round and reactiv e to light, Extraocular movements are intact. Respiratory: Lungs are clear to auscultation. Cardiovascular: Normal S1 and S2, no murmurs/rubs/gallops. Gastrointestinal: Soft, non-tender, non-distended, no organo megaly. Skin: Multiple bruises LABS: 02/17/2020 07:41 Glucose POC 161 * H (Ref. Range 70 - 99 ) Gluc POC Comment 1 Notified RN/MD 02/17/2020 12:10 Sodium Lvl 135 (Ref. Range 135 - 145) Potassium Lvl 3.4 L (Ref. Range 3.5 - 5.1) Chloride Lvl 101 (Ref. Range 95 - 109) CO2 31 (Ref. Range 24 - 32) AGAP 6.4 L (Ref. Range 10.0 - 20.0) Creatinine Lvl 0.68 (Ref. Range 0.50 - 1.40) eGFR 87 * BUN 11 (Ref. Range 7 - 22) Glucose Lvl 215 * H (Ref. Range 70 - 99) Calcium Lvl 8.4 L (Ref. Range 8.5 - 10.5) Phosphorus 3.0 (Ref. Range 2.5 - 4.5) Lactic Acid Lvl 1.6 (Ref. Range 0.5 - 2.2) Procalcitonin Lvl <0.05 (Ref. Range 0.00 - 0.10) Total CK 25 (Ref. Range 12 - 191) CHD Risk 2.85 L (Ref. Range 3.90 - 5.80) Chol 154 (Ref. Range - <=199) Trig 156 H (Ref. Range - <=149) HDL 54 L (Ref. Range >=61 - ) LDL (Calculated) 69 (Ref. Range - <=99) VLDL 31 WBC 16.0 H (Ref. Range 3.7 - 10.4) RBC 5.23 (Ref. Range 4.20 - 5.40) Hgb 12.7 (Ref. Range 12.0 - 16.0) Hct 41.4 (Ref. Range 36.0 - 48.0) MCV 79.1 L (Ref. Range 80.0 - 98.0) MCH 24.4 L (Ref. Range 27.0 - 31.0) MCHC 30.8 L (Ref. Range 32.0 - 36.0) RDW 18.3 H (Ref. Range 11.5 - 14.5) MPV 10.1 (Ref. Range 7.4 - 10.4) Platelet 161 (Ref. Range 133 - 450) Segs 84.7 H (Ref. Range 45.0 - 75.0) Lymphocytes 9.3 L (Ref. Range 20.0 - 40.0) Monocytes 5.0 (Ref. Range 2.0 - 12.0) Eosinophils 0.5 (Ref. Range 0.0 - 4.0) Basophils 0.5 (Ref. Range 0.0 - 1.0) Neutrophils # 13.6 H (Ref. Range 1.5 - 8.1) Lymphocytes # 1.5 (Ref. Range 1.0 - 5.5) Monocytes # 0.8 (Ref. Range 0.0 - 0.8) Basophils # 0.1 (Ref. Range 0.0 - 0.2) ABO/Rh O POS Antibody Scrn Positive BB Note Result Note * 02/17/2020 12:59 Glucose POC 235 * H (Ref. Range 70 - 9 9) Gluc POC Comment 1 Notified RN/MD ASSESSMENT AND PLAN: 1. Consent for plasmapheresis and tra nsfusion of blood products was obtained from the patient. Her was educated about benefits and risks associated with the procedure. His concerns and questions were answered. 2. Central line is needed. So we are waiting for the central line replacement. 3. Five cycles of therapeutic plasma exchange will be performed, with the interval of every other day, using 3L of 5% albumin. Fresh frozen plasma will be used on an as needed basis. 3g of 10% calciu m carbonate will be given for hypocalcemia prophylaxis. Please note, medications that are highly protein bound or have a low volume of distribution are removed during apheresis. We recommend holding these types of medications until after the procedure. Transfusion Medicine/Apheresis Service Attending Note: This is a 75 y/o female with dementia an d a history of Myasthenia Gravis (MG) who was admitted for difficulty in swallow and metabolic/electrolyte disturbance, suspected for MG exacerbation. We are cons ulted by the neurology team for assisting her management. 1.Per history review, the patient has a long history of MG and received TPE treatment before with some help. Per report, the patient stopped immune modulation treatment about a year ago when she had e xperienced severe allergic reaction (sev ere blisters) to IVIG. Therefore, plasma exchange seems to be the best treatment option. Consent was obtained from her who is the power attor augustin. 2.A cycle of 5 TPE procedures is planed; a central access is required with her dementia and suboptimal peripheral veins. The patient has been refusing the line placement, causing a delay of treatment initiation. 3.The patient has multiple morbidities, we will closely monitor her during each procedure. 4.The patient is on Lisinopril, I have i nform the neurology team for changing to an MARYLIN receptor inhibitor to prevent possible hypotension during the TPE. I have seen the patient, performed physi roger examination with the resident, and reviewed the related medical record. I agree with the resident's management plan. Thanks for consultation. Mariajose Garsia MD ID# [id number] Extracted from:Title: General Neurology HPI Author: Natalie Rodriguez MD Date: 02/15/20 Neurology H&P Chief Complaint: Possible MG exacerbation HPI: Mrs. Franci Floyd is a 75 y/o patient w ith history of dementia, meningioma s/p resection 10 years ago with VPS, diabetes type 2, HTN, HLD, CAD, HFrEF 50%, hypothyroidism, JD, seropositive myastenia g ravis (anti-striated muscle antibodies), and recent spinal surgery around 3 weeks who presented as a direct transfer from [facility] due to concerns of MG exacerbation. She initially prese nted one week ago to [facility] with hypoglicemia and was found to have PNA. She completed antibiotics (Cefuroxime and Clynda per external Rx) and was discharged 5 days ago with PT. Per h band, the next day of her discharged s he suddenly developed trouble standing due to lower extremity weakness, hypophonia and dysarthria. She didn't have any respiratory problems. She was tiffanie t back to [facility] where she was evalu ated by Neurology and didn't think that it was a MG exacerbation so patient's family requested transfer to [facility]. At [facility] patient had MBST which showed severe dysphagia. Currentl y, patient has no dysarthria but continuos with hypophonia. She denies any SOB. Due to her dementia she is a poor historian but denies any weakness. ROS: Unable to obtain due to dementia PMH: Dementia Meningioma s/p resection Diabetes type 2 HTN HLD CAD HFrEF 50% Hypothyroidism JD Seropositive myastenia gravis PSH: Cervical laminectomy section Meningioma s/p resection Resection Shunt construction Tonsillectomy FMH: Crohn's disease: Grandparent. Heart attack: Father. High blood pressure: Mother and Father. Type 2 diabetes mellitus: Grandparent. Social History: Patient is and l anson with her . Drinks alcohol 1- 2 timed a year and denies tobacco Medications: - Prednisone 20mg - Unsure dosage - Amlodipine 10mg - Levothyroxine 88mcg - Sertraline 25mg - Clonazepam PRN - Lisinopril - Rosuvastatin - Insulin - Furosemide 20mg Allergies: Adhesive Tape Cortizone-10 PHENobarbital Aspirin (severe chest pain) Cefepime Ciprofloxacin Erythromycin Gabapentin Immune globulin intravenous - Blisters Penicillins (rash) Phenobarbital (rash) Review of Systems: GEN: no fever, chills, weight loss, fatigue EYES: no blurred vision, double vision CARDIO: no chest pain, palpitations RESP: no shortness of breath, cough GI: no nausea, vomiting, diarrhea, abdominal pain : no frequency, dysuria, hematuria NEURO: see HPI SKIN: no rashes, lesions MSK: Generalized muscle pain ENDO: no heat or cold intolerance HEME: no lymph node enlargement, easy bruising Objective: Vitals Tmp(F) Pulse BP RR SpO2 FIO2 02/14 20:12 98.2 69 158/69 20 --- --- 02/14 18:15 98.2 72 132/69 20 94 --- 24 Hr Tmax: 98.2F (36.78c) at 02/14 20:1 2 Vital Signs are the last 5 in the past 48 hours. Physical Exam: General: laying comfortably in bed, well nourished HEENT: NCAT CV: regular rate, intact peripheral pulses Pulm: breathing comfortably, no wheezing, symmetric chest ex pansion GI: soft, non-tender, non-distended Neurology: Mental Status:A&Ox3; good attention and concentration; normal fund of knowledge and memory Language: intact fluency, comprehension, naming, and repetit ion Speech: no dysarthria CN: PERRLA, 3 mm BL, EOMI, full VF in L eye; no facial asymmetry or facial weakness noted, no ptosis identified with upward gaze, facial sensation intact; SCM and traps are 5/5 bilaterally Motor: R L Deltoid 4/5 4/5 Tricep 4+/5 4+/5 Bicep 5/5 5/5 Music Intern 5/5 5/5 Iliopsoas 4/5 4/5 Quadricep 4/5 4/5 Tibialis anterior 5/5 5/5 Gastrocnemius 5/5 5/5 Tone: normal Bulk: normal Sensory:intact to light touch Reflexes: R L Bicep 2+ 2+ Tricep 2+ 2+ Brachioradialis 2+ 2+ Patellar 2+ 2+ Ankle 2+ 2+ Plantar Downgoing Downgoing Hoffmans: absent Coordination: no dysmetria on FTN or HTS bilaterally Gait:Deferred Labs: Pending. OSH labs reviewed; remark able for Leukocytosis to 19.1 and Anemia Hb 11.8, Crea 0.4 EKG: Reviewed previous EKG - Sinus rythm Imaging: Chest x ray: Pending A&P: Mrs. Floyd is a 75 y/o patient w ith history of dementia, meningioma s/p resection 10 years ago with VPS, right eye blindness, diabetes type 2, HTN, HLD, CAD, hypothyroidism, seropositive myasthenia gravis, and recent spinal hendrix rgery who presents as a direct transfer for possible MG exacerbation. Currently, her clinical exam and symptoms are not clearly consistent with exacerbation and s he's not having respiratory compromised. She will be re evaluated tomorrow morning to decide if PLEX needs to be ordered. She had a reaction to IVG with blisters in her foot on 03/2019 so family would like to avoid IVIG. 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 Need to clarif y baseline with family. Family was unable to determine in what ways patient was different than baseline upon arrival overnight via phone conversation, and they were unable to video conference at that time. - Incentive spirometer - Continue home CPAP - PT, ST PSYCH Depression Anxiety - Continue home sertraline RESP JD - Continue home CPAP - Stable on RA CV Essential hypertension - BP control, goal SBP < 150 - Continue home Amlodipine, Lisinopril and Furosemide Hyperlipidemia - Continue statin HFrEF 50% - Continue home lasix RENAL - Baseline creatinine 0.6 - No acute concerns Electrolyte abnormalities - Replete - Monitor labs ENDO Type 2 DM - SSI for goal FSBG 140-180 - Diabetic diet when appropriate Hypothyroidism - Continue home levothyroxine HEME Mycrocitic Anemia - Hb 11.6 per OSH records - Transfuse if Hb <7 ID Leukocytosis - WBC 19.1 per OSH records - CXR, UA w/reflex cx - Pending labs Nutrition Obesity BMI 35 with Hypertension and or DM - Dietitian consult Prophylaxis DVT: Heparin SubQ GI: None Bowel regimen: Docusate Senna Diet: NPO Code Status: Full Code Dispo: Pending THE FOLLOWING WERE PRESENT ON ADMISSION: 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 Upon examination this morning, MS: AAOx3 Speech: hypophonic, sparse but appropria tely replied to questions, comprehension intact CN: EOMI, face symmetric, tongue midline on protrusion Motor: AG in all 4 Sensory: intact to light touch in all 4 Single breath count: 19 Did get in touch with patient's , who did tell us that over the past 2 weeks he has noticed a decline with increased coughing and a soft voice. He notes that when she rests her voice gets be tter. She was operated by Dr. Mcmullen and there was concern that some of the screws in her cervical spine had been displaced. He asked for us to get in touch with Dr. Izaguirre who is Ms. Floyd's outpatient neurologist. He did also hannah mmend that we give her clonazepam as she can become quite uncooperative without it. By afternoon, patient appeared a bit mor e tachypenic with single breath count of 9. Given bulbar symptoms and concern for respiratory insufficiency, we had a discussion with Dr. Izaguirre who agreed that patient would benefit from plasmaphares is. Transfusion medicine has been consulted to begin plex as early as tomorrow. We are pending vascular access, for which IR consult has been placed. was updated about plan in the evening. 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 Exacerbation - Monitor closely - NIF, FVC q3-6 hours - Continue home pyridostigmine 60mg q8H - Resume home prednisone 20mg daily - Incentive spirometery - Continue home CPAP at night Dysphagia - NPO per speech therapy - Pending MBS - Can give meds in puree/pudding per MEDICAL STAFF SPECIALIST PSYCH Depression Anxiety - Continue home sertraline - Hold clonazepam RESP JD - Continue home CPAP Concern for respiratory insufficiency - Will avoid medications that can increase weakness - NIF, FVC q3-6 hours - Monitor closely CV Essential hypertension - BP control, goal SBP < 150 - Will hold amlodipine - C/w lisinopril and furosemide Hyperlipidemia - Pending repeat lipid profile - Will hold statin HFrEF 50% - Continue home lasix RENAL - Baseline creatinine 0.6 - No acute concerns Electrolyte abnormalities - Replete - Monitor labs ENDO Type 2 DM - SSI for goal FSBG 140-180 - Diabetic diet when appropriate Hypothyroidism - C/w home levothyroxine HEME Microcytic nemia - Transfuse if Hb <7 ID Leukocytosis - WBC 19.1 per OSH records; 16.1 here - CXR, UA unremarkable though questionable haziness in RLL o n xray Nutrition Obesity BMI 35 with Hypertension and or DM - Dietitian consult Marlen Parra MD PGY-2 | Neurology [facility] Neurology staff Teaching physician statement I reviewed the residents note, personall y reviewed all the patients labs and imaging studies and personally performed a complete neurological exam. I discussed the assessment and plan of care and agree with the plan as outlined in the resident's note. David Macedo DO [facility], Neurohospitalist Landscape Crew Member of Neurology Extracted from:Title: Progress Note 12/20/2019 [facility] Author: Madhavi Calvin MD Date: 12/19/19 Ms. Floyd is a 74 y/o F with PMH dementia, HTN, obesity, T2DM, IA with prior cardiac arrest 35 years ago, myasthenia gravis on prednisone, hypothyroidism who presented on 11/21 from her [facility] s/ p fall. Found to have cervical hyperexte nsion injury as well as T4 vertebral body fracture.NSGY was consulted and recommendedC7 corpectomy and stabilization. Thesurgical intervention was delayed by card iac clearanceand she underwentcoronary a ngiogramon 11/28/2019 that revealed nonobstructive coronary artery diseaseand was subsequently cleared for surgery. The ptinitially taken to OR but was combative a nd surgery delayed. Supportive care medi cine was consulted to address GOC. Eventually on 12/04 she underwent C5-6 ACDF, posterior spinal fusion with open [id number] laminectomy. The patient was intubated and prone for the procedur eand remained intubated postoperativelyand thus admitted to the neuro ICUfor management. She was extubated on the morning of 12/05 and transferred to IMU that tru adams under hospitalist care. Course furthe r complicated by dysphagia. She was started on tube feeds throughNG tube. Course complicated bycoffee-ground substance noted in NG tubewhich was sent for analysis and positive for occult blood. GI consu ltedwith no intervention other thanPPIand monitoring, after which her hemoglobin has been stable. Also, she pulled out NG tube despite wearing restraints, difficu lt process to re-insert. Therefore bedsi de sitter was ordered. Today, she hadrepeat modified barium swallow studywhich she failed and therefore with continued recommendation for n.p.o. I consulted neuro logy to assessfor possible neuromuscular weakness due to myasthenia which would be interfering with dysphagia.I called and updated her husbandthis p.m. regarding new findingsand potential outcomes. Will think about it at this timesuch as other placementversusPEG tube. 1.C7 cervical fracture(S12.600A) [place] J collar Status postC5-6 ACDF, posterior spinal fusion with open arthrodesis C5-T1and C6-7 laminectomy, follow up in 2 weeks with NSGY for suture removal continuepain control and PT/OT 2.Hyperextension injury of cervical spine(S19.80XA) 3.Lumbar compression fracture(S32.000A) Old fracture per neurosurgery 4.Traumatic mediastinal hematoma(S27.899A) The patient has had an esophagram, vasc ular injury was ruled out on imaging, suspect secondary to C7 fracture per trauma surgery Hgb stable 5.Dysphagia(R13.10) Passed MB SSon12/16/2019, started on dys phagia dietchopped diet with nectar thick liquid 6.HTN - Hypertension(I10) Controlled on amlodipine 5 mg and ramipril 5 mg 7.Diabetes type 2, uncontrolled(E11.65) Blood sugars elevated increase NPH to 14 units twice daily and SSI Closely monitor in the setting of steroids 8.CAD - Coronary artery disease(I25.10) left heart cath 11/27 with nonobstructiv eCAD, continue withLasix, ramipriland rosuvastatin 9.Chronic systolic CHF (congestive heart failure)(I50.22) continue Lasix 20 mg PO BID continue ramipril, not on BB 10.Hypothyroid(E03.9) Continue Synthroid, TSH therapeutic 11.MG (myasthenia gravis)(G70.00) continue home prednisone and pyridostigmine avoid medications which may exacerbate her condition no evidence of crisis, seen by neurology 12.Acute pain(R52) Tylenol, oxycodone low-dose as needed Pain controlled 13.Physical restraint status(Z78.1) Not needing restraints now 14.Delirium with dementia(R41.0) At baseline patientgets agitated interm ittentlysince her meningioma resection. As perdiscussion with shegets agitated intermittently and has episodes where she is calm andcompletely alert and oriented. Frequent reorientation,avoid medications that can worsen de lirium Clonazepam however was started based on family request(discussed safety profileand adverse effectslike worsening of delirium, fall risk, oversedationetc. with family) 15.Leukocytosis(D72.829) Resolved,reactive, continue to monitor 16.History of meningioma status post resection about 10 ye ars ago(D32.9) MRI brainin 2008 with evidence of right frontal craniotomy and right frontal encephalomalaciaand right frontal mass resection, DEPUTY INSURANCE COMMISSIONER shunt with enlarged planum sphenoidal meningioma in comparison to MRI of 2012 -/ with NSGY as outpatient 17.Current chronic use of systemic steroids(Z79.52) Continue home prednisone 18.Normocytic anemia(D64.9) Stable around 9, continue to monitor 19.Hypokalemia(E87.6) Slightly low, continue repletion 20.Upper GI bleed(K92.2) resolved coffee grounds,gastric fluid + for occult blood ?NG trauma or stress gastropathy versus steroid use GI consultedrecommended monitoring hemoglobin continuelansoprazole BID 21.Sleep apnea/dyspnea(R06.00) CPAP at night 22.Atypical chest pain(R07.89) Currently resolved,troponin 0.03, chest x-ray-no significant findings that could be causing chest pain, continue to monitor started on 23.Hypophosphatemia(E83.39) Repleted Lovenox subcu Pending discharge to [facility], who cannottake the patientlate in the evening, hencepatient needs to be transported in the morningtomorrow Extracted from:Title: General Neurology Consultation Author: Emmanuel Thayer MD Date: 12/13/19 General Neurology Consultation Patient: Franci Floyd Consult Requested By: IM Service Reason for Consult: Dysphagia, myasthenia gravis History of Present Illness: Franci Floyd is a74 year old woman with PMH of HTN, T2DM, HLD, HFrEF, meningioma s/p resection in 2010 with DEPUTY INSURANCE COMMISSIONER shunt complicated by 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 on 11/22/2019 after a fall at her assisted living facility. She has had an extended hospital stay for optimization of her medical sta tus prior to spinal surgery, and ultimty robbie underwent C5-6 ACDF and C6-7 laminectomy with C5-T1 posterior spinal fusion with NSGY on 12/06/2019. Neurology was consulted on 12/12 because of persistent dy sphagia in the context of known myasthen ia gravis. She is currently feeling well without SOB, cough, fever, chest pain, or generalized fatigue. She says that her neck collar is very restrictive and she has never dealt with so much pain before in the past. She reports no blurry vision or double vision after our examination was completed. Review of Systems: GEN: no fever, chills, weight loss, fatigue EYES: no blurred vision, double vision CARDIO: no chest pain, palpitations PULM: no shortness of breath, cough GI: no nausea, vomiting, diarrhea, no abd pain : no frequency, dysuria, hematuria NEURO:no dizziness, no vision changes SKIN: no rash or lesion MSK: no pain, swelling, redness, heat in muscles, no limited ROM LYMPH/IMMUNO: No lymph node enlargement/tenderness, no heat/ cold intolerance Past Medical History: As above. Past Surgical History: DEPUTY INSURANCE COMMISSIONER shunt placement Tonsillectomy Cervical laminectomy Recent C5-6 ACDF and C6-7 laminectomy wi th C5-T1 posterior spinal fusion on 12/06/2019 Family Medical History: Father: Heart attack; High blood pressure Mother: High blood pressure Grandparent: Crohn's disease; Type 2 diabetes mellitus Social History: Patient is and her and charis vaughn participate in her care. She lives at an assisted living facility and at baseline requires ambulatory assist devices and some help with IADLs. Has never s moked, and previously drank alcohol occasionally. Home Medications: Prednisone 20mg daily, Mestinon 60mg q8h See admission home medication reconciliation for full list. Physical Exam: Vitals Tmp(F) Pulse BP RR SpO2 FIO2 12/12 11:24 98.6 87 133/70 18 96 2.0L/m 12/12 08:27 98.5 93 138/68 18 99 2.0L/m 12/12 04:00 97.8 87 112/48 17 98 --- 12/12 00:00 98.7 97 137/72 17 90 --- 12/11 21:29 97.9 93 106/43 17 100 --- 24 Hr Tmax: 98.7F (37.06c) at 12/12 00:0 0 Vital Signs are the last 5 in the past 48 hours. GENERAL: Awake, alert in NAD HEENT: Bruising on face and neck/shoulders. [place] J collar i n place. LUNGS: Clear to auscultation bilaterally, symmetric chest ri se, no wheezing CV: S1S2 RRR, no m/r/g, equal pulses bilaterally. ABDOMEN: Soft, nontender, nondistended with normoactive BS NEURO: Mental Status: AA&Ox3 Language: speech is clear. Naming, repet ition, fluency, and comprehension intact. Cranial Nerves: PERRL 4mm/brisk. EOMI, v isual nielsen full. Able to sustain upgaze for >30 seconds, although patient does not consistently cooperate well with the exam. Mild ptosis bilaterally (ba seline). No facial asymmetry, facial sen sation intact, hearing intact, tongue/uvula/soft palate midline. Neck flexion/extension was not testable because of [place] J collar. Motor: With significant encouragement, p atient is able to maintain all 4 extremities symmetrically antigravity to command. Patient does not cooperate consistently and appears fatigable at bilateral del toids, but when resistance is given the motor strength is 5/5 in upper and lower extremities. Tone: is normal and bulk is normal Reflexes: 2+ in bilateral biceps, brachioradialis, patellar. Babinski absent bilaterally. Sensation: Intact to light touch bilaterally Coordination: FTN intact bilaterally. Gait: Deferred because of spinal precautions Pre-Morbid MRS 3-Moderate disability - requires assistance and ambulatory a ssist device Labs: Labs (Last four charted values) WBC H 11.7 (NOV 29 4) H 14.8 (DEC 11) H 12.3 (DEC 10) H 12.7 (DEC 09) Hgb L 8.7 (DEC 12 ) L 9.2 (DEC 11) L 8.5 (DEC 10) L 8.4 (DEC 09) Hct L 26.9 (NOV 29) L 28.3 (DEC 11) L 25.9 (DEC 10) L 24.6 (DEC 09) Plt 169 (DEC 12) 184 (DEC 11) 183 (DEC 10) 159 (DEC 09) Na 139 (DEC 12) 139 (DEC 11) 142 (DEC 10) 142 (DEC 10) K L 3.4 (DEC 12 ) L 3.1 (DEC 11) L 3.3 (DEC 10) L 3.4 (DEC 10) CO2 32 (DEC 12) 30 (DEC 11) 30 (DEC 10) 29 (DEC 10) Cl 101 (DEC 12) 103 (DEC 11) 106 (DEC 10) 106 (DEC 10) Cr 0.60 (DEC 12) 0.86 (DEC 11) 0.63 (DEC 10) 0.69 (DEC 10) BUN 16 (DEC 12) 16 (DEC 11) 16 (DEC 10) 15 (DEC 10) Glucose Random H 271 (DEC 12 ) H 355 (DEC 11) H 237 (DEC 10) H 230 (DEC 10) Mg 2.0 (DEC 12) 2.1 (DEC 11) 1.8 (DEC 10) 1.8 (DEC 10) Phos L 2.0 (DEC 12 ) L 2.1 (DEC 11) L 1.8 (DEC 10) L 1.8 (DEC 10) Ca L 8.1 (DEC 12 ) L 8.0 (DEC 11) L 8.0 (DEC 10) L 7.9 (DEC 10) PT H 15.3 (Nov 7) 12.8 (DEC 04) 13.3 (NOV 29) 13.6 (NOV 28) INR H 1.20 (Nov 7) 0.96 (DEC 04) 1.01 (NOV 29) 1.04 (NOV 28) PTT 31.1 (DEC 05) 28.3 (DEC 04) 29.5 (NOV 29) 30.9 (NOV 28) Troponin 0.04 (NOV 21) 0.05 (NOV 21) Total CK H 840 (NOV 21) Imaging: Imaging data reviewed in the chart and the relevant items ar e discussed below. 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 on 11/22/2019 after a fall at her assisted living facility. She has had an extended hospital stay for optimization of her medical sta tus prior to spinal surgery, and rosalio avalos underwent C5-6 ACDF and C6-7 laminectomy with C5-T1 posterior spinal fusion with NSGY on 12/06/2019. Neurology was consulted on 12/12 because of persistent dy sphagia in the context of known myasthen ia gravis. Her clinical history and exam are consistent with stable MG and she does not appear to be in crisis or MG exacerbation. No additional neuroimaging or diagnostic studies required at this time. Recommendations: Myasthenia gravis - Stable MG, not in crisis or exacerbation - Continue prednisone 20mg daily and Mestinon 60mg q8h - Encourage incentive spirometry and aggressive participatio n with PT/OT/ST - We will follow up her exam again tomorrow Patient discussed with General Neurology Attending Dr. Coy. Please [place] [phone] with any questions. 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 Patient lying in bed in mild distress. Breathing unlabored while nasal canula was positioned on her forehead. No use of accessory muscles observed. Continu e prednisone and Mestinon at their curre nt dose and schedules. Continue to monitor respiratory function. If respiratory function decreases to any degree please reconsult neurology ([id number]) to discuss cristian sma exchange. Patient's called [facility] on 12/06/2019 to advise that she is allergic to IVIG but no details are provided about the type of allergic reaction experienced. Thank you for the consult we will sign off at this time. Fidel Pedersen PGY1 Neurology Neurology Attending The patient was seen and examined by me with the resident and I agree with the History/Exam documented. Sean Coy MD Extracted from:Title: Progress Note 11/28/2019 [facility] Author: Dell Carrasco MD Date: 11/28/19 1.C7 cervical fracture(S12.600A) 2.Hyperextension injury of cervical spine(S19.80XA) Cleared by cardiology now to have spine surgery. To OR tomorrow withneurosurgery-spine. [place] at all times. 3.Lumbar compression fracture(S32.000A) Old per Neurosurgery. 4.Traumatic mediastinal hematoma(S27.899A) Had negative esophagogram. Vascular injury ruled out per imaging. Per Trauma, likely secondary to C7 fracture. 5.HTN - Hypertension(I10) Controlled on norvasc. 6.Diabetes type 2, uncontrolled(E11.65) Continue BID and continue lispro regular insulin S S. 7.CAD - Coronary artery disease(I25.10) Cardiology following.Cath showed non obsctruing CAD. On ACEi, lasix, statin. 8.Hypothyroid(E03.9) On synthroid. 9.MG (myasthenia gravis)(G70.00) On chronic prednisone and pyridostigmine. Continue. 10. Acute pain Continue scheduled tylenol,lidoderm pat ch and prn oxycodone. Off gabapentin per family request. Lovenox TBD Extracted from:Title: Cardiology Consult Note Author: Melina Gomez NP Date: 11/22/19 CONSULTATION PATIENT NAME: Langoff. Franci Barrera ADMISSION DATE: 11/22/2019 CONTSULTED PHYSICIAN: Dr. Sanya Gatica SERVICE: Cardiology CHIEF COMPLAINT: s/p trip and fall on ma tt at her assisted living facility on 11/21/19 HISTORY OF PRESENT ILLNESS: 74 year-old woman with a PMHX significant for dementia, hyperlipidemia, hypertension, morbid obesity, diabetes mellitus, questionable history of prior IA/cardiac arrest ~35 y ears ago "during an artertiogram", myas thenia gravis and hypothyroidism. Pt is a poor historian, HPI obtained via her Crispin Parikh. Per Mr. Parikh, his has resided in an assiste d living center for approximately one ye ar after a prolonged illness last year with Pneumonia. He states that in the past three to four months she has been in her "best health in years" he rep orts that she has had a history of falls in the past, all reported to be secondary to tripping - he denies any syncope/near syncopal falls or falls 2/2 weakness/fatigue. He states that this fall is her first fall in three months. Ms. Parikh has been seen by a sales marketing in the past, Dr. Sanchez Demarco at [facility]. She was last seen there ~8 months ago and has only been seen for routine f ollow-up. Dr. Demarco has since retired a nd she has not followed-up with his partner or, according to her , had any need to. Mr. Parikh reports that his has had no complaints of chest pain/p ressure, shortness of breath or weakness - fatigue, he also states that the assisted living center where she resides has not given him any reports of above. Ms. Parikh is admitted to [facility] after a tri p and fall resulting in hyperextension i njury possibly affecting C7, she may require a surgical intervention. The neurosurgical team has consulted cardiology for perioperative risk stratification. PAST MEDICAL HISTORY: 1. Dementia 2. Hyperlipidemia 3. Hypertension 4. Diabetes mellitus 5. Myasthenia gravis 6. Hypothyroidism 7. Morbid obesity 8. Hx of cervical stenosis 9. Hx of falls 10. Blindness of right eye PAST SURGICAL HISTORY: 1. Craniotomy for meningioma 2010 2. Cervical laminectomy C2, C3, microdissection, decompressi on of spinal canal 3. Tonsillectomy 4. section FAMILY HISTORY: Father - in his 70s "[place]" SOCIAL HISTORY: Patient is , she lives in an assisted living center. 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 Denies history of smoking, alcohol or illicit drug use/abuse. ALLERGIES: Adhesive Tape Cortizone-10 PH ENobarbital aspirin (severe chest pain) cefepime ciprofloxacin erythromycin, penicillins (rash) phenobarbital (rash) HOME MEDICATIONS: Amlodipine 10mg PO QD Ramipril 2.5mg PO QD Crestor 20mg PO HS Lasix 20mg PO QD Potassium chloride 20mEq BID Levothyroxine 88mcg PO QD Levemir 25units SQ BID Novolog 10units QSQ TID Prednisone 20mg PO QD Sertraline 25mg PO QD Fgkhaevgkpyutz21bi PO TID Labs: 11/21 0735 Lactic Acid Lvl 2.6 H 11/21 0640 WBC 21.8 H RBC 5.09 Hgb 15.2 Hct 46.2 MCV 90.7 MCH 29.8 MCHC 32.8 RDW 16.1 H Platelet 171 MPV 8.9 ACT (TEG) Rapid 89 Split Point Rapid 0.3 R-time Rapid 0.4 K-time Rapid 1.3 Angle Rapid 75 Max Amplitude Rapid 64 G-value Rapid 9.0 Estimated % Lysis Rapi 0.0 PT 12.4 INR 0.92 PTT 25.1 Segs 77.5 H Monocytes 6.8 Lymphocytes 14.2 L Eosinophils 0.2 Basophils 1.3 H Neutrophils # 16.9 H Lymphocytes # 3.1 Monocytes # 1.5 H Eosinophils # 0.1 Basophils # 0.3 H RBC Morph Normal Plt Morph Normal Large Plt Slight 11/21 0556 ABO/Rh O POS Antibody Scrn Negative 11/21 0552 Total CK 840 H 11/21 0552 Temp Agustín 37.0 pH Agustín 7.38 pCO2 Agustín 39 pO2 Agustín 39 HCO3 Agustín 23 BE Agustín -2 O2 Sat Agustín 72.3 H Glucose Lvl 157 H BUN 21 Creatinine Lvl 0.83 Sodium Lvl 143 Potassium Lvl 4.1 Chloride Lvl 111 H CO2 23 L AGAP 13.1 Calcium Lvl 7.7 L eGFR 70 Total Protein 5.8 L Albumin Lvl 2.4 L Bili Total 1.2 Bili Direct 0.3 Bili Indirect 0.9 Alk Phos 102 AST 355 H ALT 155 H Globulin 3.4 A/G Ratio 0.7 Troponin-I 0.05 Diagnostics: MRI Cervical, thoracic and lumbar spine pending EKG: SR, rate 83bpm, possible old inferi or infarct, present on prior EKGs. No acute ST segment changes. REVIEW OF SYSTEMS: Constitutional: Denies fever, chills, night sweats, and doug ght changes. Eyes: Denies acute blurry vision, itching. HEENT: Negative except for HPI. Denies r ecent trauma, VILA, nasal drainage/epistaxis, sore throat. Resp: Denies dyspnea, cough. CV: Denies chest pain/pressure, orthopne a, PND, BRICEÑO, LE edema, palpitations, or claudication GI: Denies nausea, vomiting, diarrhea, c onstipation, reflux sx, hematemesis, odynophagia, dysphagia, bloating, melena, hematochezia : Denies dysuria, urgency, or hematuria. MSK: Denies joint/extremity deformity, joint swelling/stiffn ess. Neuro: Denies LOC/syncope, focal weakness, seizure, tremor. Integ: Denies rashes, open lesions. Endo: Denies polydypsia, polyphagia, heat or cold intoleranc e. Hemo/Lymph: Denies increased bleeding or bruising, denies sw ollen lymph nodes Psych: Denies increased anxiety, agitation, insomnia, mood s wings PHYSICAL EXAM: Vital signs: BP: 193/77mmHg, HR: 76bpm, RR: 19, SpO2 99% on 2L NC General/Constitutional: Awake, alert, not in distress. Calm and cooperative. HEENT: Normocephalic, large right sided temporoparietal hematoma. Normal external appearance of nares, no drainage, moist mucosa. Eyes: right periorbital ecchymosis Neck:C-collar in place Heart: Reg rate and rhythm. Norm S1/S2, no S3/S4. No murmurs. No JVD appreciated. Pulses: Distal pulses 2+ bilaterally. Lungs: Diminished BL breathsounds no Wh eeze/Rales/Rhonchi. No increased work of breathing, no accessory muscle use, on 3L NC Abd: Normoactive bowel sounds. Soft, mor bidly obese, nondistended, nontender abdomen. No guarding, no rebound tenderness. MSK/Extremities: Strength intact. Non-pi tting BLLE edema. BLLE with skin discoloration suggestive of venous stasis Skin: No rashes/lesions. Neuro: No focal deficits. For complete n eurological assessment please see Neurosurgical note. IMPRESSION AND PLAN: 74 year-old woman with PMHX significant for dementia, hyperlipidemia, hypertension, diabetes mellitus, morbid obesity, questionable hx of IA ~35 years ago during arteriogram, and hx of falls is admitted to [facility] s/p fall on 11/21/19 with hype rextension of C7. Cardiology consulted for preoperative risk stratification. 1. Preoperative risk stratification in p atient with multiple co-morbidities and risk factors for coronary artery disease - Pt has been followed by a sales marketing in [place], Dr. Sanchez Demarco, though she has not seen Dr. Demarco in ~8 months and he has since retired from practice. No r ecent stress test or heart catheterization - No recent hx of chest pain/pressure/sh ortness of breath/syncope/near syncope. Falls are all reported to be mechanical in a patient with known Myasthenia gravis - Pt with questionable hx of cardiac arr est vs IA ~35 years ago during an arteriogram - Spouse reports that during an arteriogram she had a reaction to a medication that w as administered to induce "cardiac spasm" and that caused her to have a heart attack that was treated with a shock - Patient does have significant risk fac tors for CAD including diabetes mellitus, morbid obesity, hyperlipidemia, hypertension and hypothyroidism - Recommend obtaining Chest x-ray, Echoc ardiogram, Cardiac enzymes, lipid panel, thyroid panel, HgbA1c - Of note, CK elevated, this could be 2/2 her recent fall, t rend CE x 3 sets 2. Hypertension - BP elevated on exam - could be 2/2 pain - recommend pain c ontrol agents - Pt on home Amlodipine and Ramipril recommend resumin g home anti-hypertensives 3. Hyperlipidemia - Pt on home Crestor - check lipid and liver panel 4. Reported hx of systolic heart failure - 2019 echo with hypertrophic LV (htn he art disease) and EF 55-60%, no wall motion abnormality and nml valve fxn - Pt does not appear to be volume overloaded, check CXR - Rpt Echo, check thryoid panel - Pt on home lasix, amlodipine and ramip ril, no BB. She does have BLLE edema this could be r/t amlodipine use. 5. Morbid Obesity - Recommend nutritional consult 6. Hyperextension injury to C7 in patien t with hx of cervical stenosis and s/p laminectomy - MRI cervical spine pending - Per Neurosurgery Thank you for this interesting consult. Further recommendati ons to follow. Will discuss above findings and plan with Dr. En adams rounds. Melina Gomez APRN, MSN, ACNP- Department of Cardiology Pager# [phone] MSO# [id number] Addendum by Sanya Gatica MD on 11/22/2019 22:35 Discussed with the cardiology ENVIRONMENTAL SERVICES ASSOCIATE's team, Melina alexis. Patient was getting MRI, thus could not perform physical exam. All data reviewed including echo, which revealed LVH and low normal LV systolic function which has decreased since 01/2019. The inferior wal l appears rather hypokinetic to my visua lization. She also has elevated transaminase. She would be a moderate risk for the general anesthesia, so far. Please order CXR, I will examine the patient in am, and provide further recommendation. Discussed with NS team , . Sanya Gatica MD Cardiology Extracted from:Title: Cardiology Progress Note * 11/28/2019 [facility] Author: Sanya Gatica MD Date: 11/27/19 Impression and Plan Discussed with the cardiology ENVIRONMENTAL SERVICES ASSOCIATE's team, Ms. Arlette Gifford. 74 year-old woman with PMHX significant for dementia, hyperlipidemia, hypertension, diabetes mellitus, morbid obesity, questionable hx of IA ~35 years ago during arteriogram, and hx of falls is admitted to [facility] s/p fall on 11/21/19 with hype rextension of C7. Cardiology consulted for preoperative risk stratification. Clinically unchanged. 1. Preoperative cardiac evaluation and risk stratification - Patient has multiple co-morbidities an d risk factors for CAD including diabetes mellitus, morbid obesity, hyperlipidemia, hypertension - Patient follows up with sales marketing gucci Giordano, Dr. Sanchez Demarco, though she has not seen Dr. Demarco in ~8 months ( he has since retired from practice), No recent stress test or heart catheterization - No recent or current h/o chest pain/pr essure/shortness of breath/syncope/near syncope - Patient is s/p fall and the fall is re ported to be mechanical in a patient with known Myasthenia gravis, however, given her dementia the etiology of her falls is unclear, it may be related to cardiac arrhythmia, her EKG indicates cannot rule out an inferior my ocardial injury - Patient with h/o cardiac arrest vs IA ~35 years ago during an arteriogram, spouse reports that during the procedure she received a medication to induce coron jordi spasms, which caused her to have a "heart attack" that was treated with a shock - Of note, CK elevated, this could be 2/2 her recent fall, f ollow up CK level - Chest x-ray with L pleural effusion, E chocardiogram EF 50-55% with decreased LV function as compared to 02/17 echo, And inferior wall appears more hypokinetic, which suggests prior inferior myocardial injury as suggested by her EKG. Along w ith pulmonary congestion, unknown etiology of her fall/syncope, significant CAD is very probable. Plan was to perform pharmacological stress test, but patient unable to tolerate the procedure. - Patient will need a LHC prior to clear ing her for surgery. Per neuro surgery, patient will benefit from surgery as it improves her quality of life. - Patient and spouse agreed for LHC, con sent signed in chart and planning for LHC tomorrow - COVID test is over 72 hours old, need a new test today, will discuss with primary team - please keep patient NPO after MN on Hendrix nday, 11/26 and hold 11/27 a.m. dose of lovenox 2. Hypertension - SBP ranging 130's - 150's today, tamara nue Norvasc, Lasix, and Ramipril, PRN Hydralazine if SBP >/=160 - Monitor BP closely and adjust medications as needed 3. Hyperlipidemia - fasting lipid panel results reviewed // - Crestor resumed, please monitor liver function given transaminitis on admission 4. Reported h/o Chronic systolic heart failure - Echo with EF 50-55% which demonstrates a decrease in her LV function as compared to 2019 study - 2019 echo with hypertrophic LV and EF 55-60%, no wall motion abnormality and normal valve function noted - Patient home medications include Lasix , amlodipine and ramipril, no BB. She does have BLLE edema this could be r/t amlodipine use. - CXR with mild vascular pulmonary conge stion a few days ago, continue lasix 20mg PO QD, recommend repeat CXR - recommend daily weights and I&O's 5. Morbid Obesity - Recommend nutritional consult but defer to primary team 6. Hyperextension injury to C7 in the se tting of cervical stenosis, s/p laminectomy - Plan for surgical intervention per Neuro surgery after car diac clearance - On Tylenol, Lidoderm patch and PRN Oxycodone for pain cont rol 7. DM-2 - On insulin Lantus and SSC Insulin - Patient is on chronic Prednisone 20mg daily - Hgb A1c 8.5 - management per primary team 8. Hypothyroidism - TSH normal 2.670, continue levothyroxine 9. H/O Myasthenia Gravis -On Pyridostigmine 10. DVT prophylaxis -SQ Lovenox Disposition: plan for LHC in a.m., radha nt has been consented, COVID test over 72 hours old, need a new COVID test today. The cardiology ENVIRONMENTAL SERVICES ASSOCIATE, Ms. Gifford has discus sed the plan of care with bedside RN and with Dr. Perry via perfect serve. Extracted from:Title: Cardiology Consult Note Author: Melina Gomez ENVIRONMENTAL SERVICES ASSOCIATE Date: 11/22/19 CONSULTATION PATIENT NAME: Langoff. Franci Barrera ADMISSION DATE: 11/22/2019 CONTSULTED PHYSICIAN: Dr. Sanya Gatica SERVICE: Cardiology CHIEF COMPLAINT: s/p trip and fall on ma tt at her assisted living facility on 11/21/19 HISTORY OF PRESENT ILLNESS: 74 year-old woman with a PMHX significant for dementia, hyperlipidemia, hypertension, morbid obesity, diabetes mellitus, questionable history of prior IA/cardiac arrest ~35 y ears ago "during an artertiogram", myas thenia gravis and hypothyroidism. Pt is a poor historian, HPI obtained via her Crispin Parikh. Per Mr. Parikh, his has resided in an assiste d living center for approximately one ye ar after a prolonged illness last year with Pneumonia. He states that in the past three to four months she has been in her "best health in years" he rep orts that she has had a history of falls in the past, all reported to be secondary to tripping - he denies any syncope/near syncopal falls or falls 2/2 weakness/fatigue. He states that this fall is her first fall in three months. Ms. Parikh has been seen by a sales marketing in the past, Dr. Sanchez Demarco at [facility]. She was last seen there ~8 months ago and has only been seen for routine f ollow-up. Dr. Demarco has since retired a nd she has not followed-up with his partner or, according to her , had any need to. Mr. Parikh reports that his has had no complaints of chest pain/p ressure, shortness of breath or weakness - fatigue, he also states that the assisted living center where she resides has not given him any reports of above. Ms. Parikh is admitted to [facility] after a tri p and fall resulting in hyperextension i njury possibly affecting C7, she may require a surgical intervention. The neurosurgical team has consulted cardiology for perioperative risk stratification. PAST MEDICAL HISTORY: 1. Dementia 2. Hyperlipidemia 3. Hypertension 4. Diabetes mellitus 5. Myasthenia gravis 6. Hypothyroidism 7. Morbid obesity 8. Hx of cervical stenosis 9. Hx of falls 10. Blindness of right eye PAST SURGICAL HISTORY: 1. Craniotomy for meningioma 2010 2. Cervical laminectomy C2, C3, microdissection, decompressi on of spinal canal 3. Tonsillectomy 4. section FAMILY HISTORY: Father - in his 70s "[place]" SOCIAL HISTORY: Patient is , she lives in an assisted living center. 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 Denies history of smoking, alcohol or illicit drug use/abuse. ALLERGIES: Adhesive Tape Cortizone-10 PH ENobarbital aspirin (severe chest pain) cefepime ciprofloxacin erythromycin, penicillins (rash) phenobarbital (rash) HOME MEDICATIONS: Amlodipine 10mg PO QD Ramipril 2.5mg PO QD Crestor 20mg PO HS Lasix 20mg PO QD Potassium chloride 20mEq BID Levothyroxine 88mcg PO QD Levemir 25units SQ BID Novolog 10units QSQ TID Prednisone 20mg PO QD Sertraline 25mg PO QD [id number] PO TID Labs: 11/21 0735 Lactic Acid Lvl 2.6 H 11/21 0640 WBC 21.8 H RBC 5.09 Hgb 15.2 Hct 46.2 MCV 90.7 MCH 29.8 MCHC 32.8 RDW 16.1 H Platelet 171 MPV 8.9 ACT (TEG) Rapid 89 Split Point Rapid 0.3 R-time Rapid 0.4 K-time Rapid 1.3 Angle Rapid 75 Max Amplitude Rapid 64 G-value Rapid 9.0 Estimated % Lysis Rapi 0.0 PT 12.4 INR 0.92 PTT 25.1 Segs 77.5 H Monocytes 6.8 Lymphocytes 14.2 L Eosinophils 0.2 Basophils 1.3 H Neutrophils # 16.9 H Lymphocytes # 3.1 Monocytes # 1.5 H Eosinophils # 0.1 Basophils # 0.3 H RBC Morph Normal Plt Morph Normal Large Plt Slight 11/21 0556 ABO/Rh O POS Antibody Scrn Negative 11/22 551 Total CK 840 H 11/21 05 Temp Agustín 37.0 pH Agustín 7.38 pCO2 Agustín 39 pO2 Agustín 39 HCO3 Agustín 23 BE Agustín -2 O2 Sat Agustín 72.3 H Glucose Lvl 157 H BUN 21 Creatinine Lvl 0.83 Sodium Lvl 143 Potassium Lvl 4.1 Chloride Lvl 111 H CO2 23 L AGAP 13.1 Calcium Lvl 7.7 L eGFR 70 Total Protein 5.8 L Albumin Lvl 2.4 L Bili Total 1.2 Bili Direct 0.3 Bili Indirect 0.9 Alk Phos 102 AST 355 H ALT 155 H Globulin 3.4 A/G Ratio 0.7 Troponin-I 0.05 Diagnostics: MRI Cervical, thoracic and lumbar spine pending EKG: SR, rate 83bpm, possible old inferi or infarct, present on prior EKGs. No acute ST segment changes. REVIEW OF SYSTEMS: Constitutional: Denies fever, chills, night sweats, and doug ght changes. Eyes: Denies acute blurry vision, itching. HEENT: Negative except for HPI. Denies r ecent trauma, VILA, nasal drainage/epistaxis, sore throat. Resp: Denies dyspnea, cough. CV: Denies chest pain/pressure, orthopne a, PND, BRICEÑO, LE edema, palpitations, or claudication GI: Denies nausea, vomiting, diarrhea, c onstipation, reflux sx, hematemesis, odynophagia, dysphagia, bloating, melena, hematochezia : Denies dysuria, urgency, or hematuria. MSK: Denies joint/extremity deformity, joint swelling/stiffn ess. Neuro: Denies LOC/syncope, focal weakness, seizure, tremor. Integ: Denies rashes, open lesions. Endo: Denies polydypsia, polyphagia, heat or cold intoleranc e. Hemo/Lymph: Denies increased bleeding or bruising, denies sw ollen lymph nodes Psych: Denies increased anxiety, agitation, insomnia, mood s wings PHYSICAL EXAM: Vital signs: BP: 193/77mmHg, HR: 76bpm, RR: 19, SpO2 99% on 2L NC General/Constitutional: Awake, alert, not in distress. Calm and cooperative. HEENT: Normocephalic, large right sided temporoparietal hematoma. Normal external appearance of nares, no drainage, moist mucosa. Eyes: right periorbital ecchymosis Neck:C-collar in place Heart: Reg rate and rhythm. Norm S1/S2, no S3/S4. No murmurs. No JVD appreciated. Pulses: Distal pulses 2+ bilaterally. Lungs: Diminished BL breathsounds no Wh eeze/Rales/Rhonchi. No increased work of breathing, no accessory muscle use, on 3L NC Abd: Normoactive bowel sounds. Soft, mor bidly obese, nondistended, nontender abdomen. No guarding, no rebound tenderness. MSK/Extremities: Strength intact. Non-pi tting BLLE edema. BLLE with skin discoloration suggestive of venous stasis Skin: No rashes/lesions. Neuro: No focal deficits. For complete n eurological assessment please see Neurosurgical note. IMPRESSION AND PLAN: 74 year-old woman with PMHX significant for dementia, hyperlipidemia, hypertension, diabetes mellitus, morbid obesity, questionable hx of IA ~35 years ago during arteriogram, and hx of falls is admitted to [facility] s/p fall on 11/21/19 with hype rextension of C7. Cardiology consulted for preoperative risk stratification. 1. Preoperative risk stratification in p atient with multiple co-morbidities and risk factors for coronary artery disease - Pt has been followed by a sales marketing in [place], Dr. Sanchez Demarco, though she has not seen Dr. Demarco in ~8 months and he has since retired from practice. No r ecent stress test or heart catheterization - No recent hx of chest pain/pressure/sh ortness of breath/syncope/near syncope. Falls are all reported to be mechanical in a patient with known Myasthenia gravis - Pt with questionable hx of cardiac arr est vs IA ~35 years ago during an arteriogram - Spouse reports that during an arteriogram she had a reaction to a medication that w as administered to induce "cardiac spasm" and that caused her to have a heart attack that was treated with a shock - Patient does have significant risk fac tors for CAD including diabetes mellitus, morbid obesity, hyperlipidemia, hypertension and hypothyroidism - Recommend obtaining Chest x-ray, Echoc ardiogram, Cardiac enzymes, lipid panel, thyroid panel, HgbA1c - Of note, CK elevated, this could be 2/2 her recent fall, t rend CE x 3 sets 2. Hypertension - BP elevated on exam - could be 2/2 pain - recommend pain c ontrol agents - Pt on home Amlodipine and Ramipril recommend resumin g home anti-hypertensives 3. Hyperlipidemia - Pt on home Crestor - check lipid and liver panel 4. Reported hx of systolic heart failure - 2018 echo with hypertrophic LV (htn he art disease) and EF 55-60%, no wall motion abnormality and nml valve fxn - Pt does not appear to be volume overloaded, check CXR - Rpt Echo, check thryoid panel - Pt on home lasix, amlodipine and ramip ril, no BB. She does have BLLE edema this could be r/t amlodipine use. 5. Morbid Obesity - Recommend nutritional consult 6. Hyperextension injury to C7 in patien t with hx of cervical stenosis and s/p laminectomy - MRI cervical spine pending - Per Neurosurgery Thank you for this interesting consult. Further recommendati ons to follow. Will discuss above findings and plan with Dr. En palomares. Melina Gomez APRN, MSN, ACNP- Department of Cardiology Pager# [phone] MSO# [phone] Addendum by Sanya Gatica MD on 11/22/2019 22:35 Discussed with the cardiology ENVIRONMENTAL SERVICES ASSOCIATE's team, Ms. Melina alexis. Patient was getting MRI, thus could not perform physical exam. All data reviewed including echo, which revealed LVH and low normal LV systolic function which has decreased since 01/2019. The inferior wal l appears rather hypokinetic to my visua lization. She also has elevated transaminase. She would be a moderate risk for the general anesthesia, so far. Please order CXR, I will examine the patient in am, and provide further recommendation. Discussed with NS team , . Sanya Gatica MD Cardiology Extracted from:Title: Neurology Discharge Summary 09/20/2018 [facility] Author: Sean Coy MD Date: 09/19/18 INPATIENT NEUROLOGY DISCHARGE SUMMARY Patient Name: Franci Floyd Date of Admission: 09/12/18 Date of Discharge: 09/19/18 Admission Diagnosis: Weakness, Dysphagia Discharge Diagnoses: Bulbar Myasthenia Gravis Consults Obtained: Opthalmology, ENT Brief HPI: Mrs. Floyd is a 73 y.o. 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 [...] Important Plans for Future Care: Follow up [facility]. Please call . Clinic located at [address], [address] [place], [place] [address]. PCP follow-up within 2 weeks Discharge Instructions: Please continue to take all medications as prescribed and follow up as intstructed. 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 Discharge To Location: Home Please call our nurse coordinator at if you have any questions/concerns. Thank you, [facility] Extracted from:Title: Neurology Progress Note Author: Sanchez La MD Date: 09/18/18 General Neurology Progress Note Patient: Franci Floyd Overnight events: No acute events overnight. Hospital [...] to [facility]. PT/OT recomm ended home with 09/18 patient continues to do well, if shayna molina continues to do well tomorrow, patient may be able to discharge home. Chief Complaint: difficulty swallowing History of Present Illness: Mrs. Floyd is a 73 y.o. 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 [...] DM Past Surgical History: meningioma resect ion, DEPUTY INSURANCE COMMISSIONER shunt, left eye cataract surgery Family Medical History: no family history of neuromuscular d isorders Social History: Denies alcohol, drugs, or tobacco use. 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 Has indicated that she wants her to be her medical power of ip attorney permanently. He agrees with full code. 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 Supportive medicine was consulted for goals of care discussion. #Goals of care/palliative -The patient does not have an advanced directive. -CODE STATUS is currently full code. -The next of kin is the patient's [phone]. -Unable to discussgoals of care today si [...] admission. Please start the patient onsenna2 tabletstwice daily,[id number] twice dailyandbisacodyl suppository as neededfor constipation. -Pain: [...] page us via the Memor jumana Azul [facility] page digitizer operator or via the following pager: [phone], [phone]. Nely Britt MD PGY2 [facility] Internal Medicine ATTENDING ATTESTATION I have [...] 3 days or more, recommend bisacodyl supp [place] BID PRN cons tipation. If no BM 5 days or more sugges t milk and molasses enema up to every 8 hours until BM. We have discussed the patient with primary team physician. Thank you for the opportunity to partici mckeon in this patient's care. We will follow along with you. [facility] Pager:#[phone](24 hours / 7 days) Extracted from:Title: Discharge Summary 09/10/[address] [facility] Author: Sadi Cortés MD Date: 09/09/18 Discharge Information Discharge Summary Information: Discharg e diagnosis, Discharge medications (See Discharge Medications). Fluctuating left eye vision loss Dysphagia Essential hypertension Hyperlipidemia History of DEPUTY INSURANCE COMMISSIONER shunt History of craniotomy status post meningioma resection Discharge Plan Discharge Summary Plan Discharge Status: stable. Discharge instructions given. Discharge disposition: Higher level of care. Discharge planning greater than 30 minutes Extracted from:Title: Clinical Document Author: Kasi Amato MD Date: 09/09/18 NEUROLOGY and CRITICAL CARE MEDICINE [facility] Consultation / Progress Note Assessment / [...] seeking to go to the Medical Center ([facility]) They wish to continue to seek medical care here at [facility]. History of Present Illness 73F Presents (09/07/18) with right eye pain. Onset of pain was an hour prior to presentation. BP 146/41. HR 67. T 97.5. SPO2 98% on room air. PMH Hypertension Hyperlipidemia Diabetes mellitus Meningioma of the sphenoid planum Post craniotomy and meningioma resection (2010) Ventriculoperitoneal shunt Cranioplasty (2012) Vision loss left eye, chronic PSH Craniotomy [...] GI No nausea, vomiting, diahhrea, melena, blood [place]. No new urgency, frequency, pain, or urine [...] was articulate. Fluent, if slow. Comprehension intact. Power Transformer Repairer were surprisingly strong bilaterally. The patient was [...] artery. 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 Aberrant right subclavian artery CT Chest (08/18/18) [...] - - - - - EKG (09/07/18) [facility] Sinus rhythm Inferior infarction Anterior infarction T wave abnormality, consider lateral ischemia CT Head (09/07/18) [facility] (Report) Right frontal craniotomy. Orbits [...] (SEP 08) PTT 32.0 (SEP 08) Laboratories [facility] (09/07/18) WBC 7.4, normal differential. [...] loss Dysphagia Essential hypertension Hyperlipidemia History of DEPUTY INSURANCE COMMISSIONER shunt History of craniotomy status post meningioma resection Pending neurology evaluation Failed bedside swallow eval. Speech therapy to evaluate the patient PT/OT eval and treat Will reconsult meds once achieved by [facility] per protocol Supportive care management Extracted from:Title: Ophthalmology Consult Note 08/20/2018 [facility] Author: Sivan Thomas MD Date: 08/17/18 CONSULTATION OPHTHALMOLOGY PATIENT NAME: FRANCI FLOYD MR #: [id number] ROOM: [place] [address] REQUESTING TEAM/ATTENDING: ED DATE OF CONSULT: 08/17/2018 CONSULTING ATTENDING: Kalani Jacobo MD CONSULTING RESIDENT: Sivan Laws MD REASON FOR CONSULT: left ptosis CHART REVIEWED: YES HISTORY OF PRESENT ILLNESS: 73 year old female with HTN, HLD, planum sphenoidal meningioma, right frontal craniotomy for meningioma s/p resection in 2010, hydrocephalus s/p craniectomy and DEPUTY INSURANCE COMMISSIONER shunt, cr anioplasty in 2011 and POH [...] Tobacco Details: Use: Never smoker. Ready to ch evelyn: No. Household tobacco concerns: No. Tobacco [...] tment to follow up with her primary plow shaker or Dr. Kalani Jacobo at the [facility] upon discharge (Located: [address] [place] [address], 18th floor, ) or i f patient has a Business Exchange Card/ has pending application they can follow up at [facility] ([address] [address] ) Sivan Laws MD Ophthalmology PGY2 [facility] Plan of Care No Data Provided [...] entered on: 09/21/18 Social History TypeResponse 09/08/2018 [facility] Alcohol Current, Frequency: 1-2 times per year. Substance Abuse Use: None. Smoking Status Never smoker; Ready to change: No; Araseli rns about tobacco use in household: No; Exposure to Tobacco Smoke None; Cigarette Smoking Last 365 Days No; Reg Smoking Cessation Counseling Yes entered on: 02/15/20 Social History TypeResponse 09/08/2018 [place] law Alcohol Current, Frequency: 1-2 times per year. Substance Abuse Use: None. Smoking Status Never smoker; Ready to change: No; Araseli rns about tobacco use in household: No; Exposure to Tobacco Smoke None; Cigarette Smoking Last 365 Days No; Reg Smoking Cessation Counseling No entered on: 11/22/19 Social History TypeResponse 08/17/2018 [facility] [...]
--- OUTSIDE RECORDS SUMMARY | 2020-03-16 10:04 | XMS REPORT | Summary of Care ---
:1945 Author Organization [facility] Address [address] [place] [id number] Encounter HQ Andrear_sebastian(FIN) [phone] Date(s): 11/22/19 - 12/20/[address] Professional Services provided by [facility] [place] [address]- Discharge Disposition: Home or Self Care Attending Physician: Madhavi Calvin MD Admitting Physician: Keagan Christopher MD Referring Physician: Gustavo Chisholm MD Vital Signs Most recent to oldest 1 2 3 [Reference Range]: Height 149.86 cm 149.86 cm 149.86 cm (12/06/19 3:12 PM) (12/06/19 11:07 AM) (12/06/19 7:30 AM) Temperature Oral [96.4-99.1 97.6 DegF 97.5 DegF 97.5 DegF DegF] (12/19/19 7:55 PM) (12/19/19 4:47 PM) (12/19/19 9:1 4 AM) Blood Pressure [90-140/60-90 107/71 mmHg 112/77 mmHg 119 /71 mmHg mmHg] (12/20/19 11:56 AM) (12/20/19 8:24 AM) (12/20/19 4: 00 AM) Respiratory Rate [14-20 BRMIN] 18 BRMIN 15 BRMIN 1 8 BRMIN (12/20/19 11:56 AM) (12/20/19 8:24 AM) (12/20/19 4: 00 AM) Peripheral Pulse Rate [60-100 79 bpm 81 bpm 80 bpm bpm] (12/20/19 11:56 AM) (12/20/19 8:24 AM) (12/20/19 4: 00 AM) Weight 90 kg (11/23/19 2:25 AM) Body Mass Index 40.07 m2 (11/23/19 2:25 AM) Problem List Condition Effective Dates Status Health Status Informant Blindness of one eye(Confirmed)1 Resolved BMI 40.0-44.9, adult(Confirmed) Active CAD - Coronary artery Active disease(Confirmed) DM - Diabetes mellitus(Confirmed) Resolved Heart failure(Confirmed)2 Resolved HTN - Hypertension(Confirmed) Active HTN - Hypertension(Confirmed) Resolved Hypothyroid(Confirmed) Active Morbid obesity(Confirmed) Resolved Morbid obesity(Confirmed) Active MG (myasthenia gravis)(Confirmed) Active MG, crisis (myasthenia Resolved gravis)(Confirmed) JD - Obstructive sleep Resolved apnea(Confirmed) Multiple falls(Confirmed) Active Type 2 diabetes mellitus with Resolved hyperglycemia(Confirmed) Diabetes type 2, Active uncontrolled(Confirmed) 1right [id number] Allergies, Adverse Reactions, Alerts Substance Reaction Severity Status penicillins1 rash Active ciprofloxacin Active erythromycin2 Active phenobarbital rash Active gabapentin3 Active aspirin4 severe chest pain Active immune globulin intravenous5 Act kimberly cefepime Active Cortizone-10 Active Adhesive Tape6 Active PHENobarbital7 Active 1Data migrated from [employer] on 01/22/15. Originally documented as PCN.2Data migrated from [employer] on 01/22/15. Originally documented as ERYTHROMYCIN.3 [id number] migrated from [employer] on 01/22/15. Originally documented as ASPIRIN.5Husband called hospital on 12/06/19 and stated that the pt was allergic to [id number] migrated from [employer] on 08/01/15. Originally documented as ADHESIVE TAPE.7Data migrated from [employer] on 01/22/15. Originally documented as PHENOBARBITAL. Medications acetaminophen 650 mg, 2 tab, Route: PO, Drug form: TAB, Q6H, Dosing Weight 90, kg, Start date: 12/09/19 0:00:00 CDT, Duration: 30 day, Stop date: 01/07/20 18:00:00 CDT, 0 Notes: Do not exceed 4 gm/day. (Same as: Tylenol) Start Date: 12/09/19 Stop Date: 12/20/19 Status: Discontinuedacetaminophen 1 gm, 2 tab, Route: PO, Drug form: TAB, Q6H, Dosing Weight 100, kg, Priority: NOW, Start date: 11/22/19 16:10:00 CDT, Duration: 30 day, Stop date: 12/22/19 11:00:00 CDT, 0 Notes: Max acetaminophen 4000 mg/day (4 gm/day). (Same as: Tylenol Extra Strength) Start Date: 11/22/19 Stop Date: 12/06/19 Status: Discontinuedalbuterol-ipratropium 2.5-0.5 mg inhalation solution 3 ml, Route: NEB, Drug Form: SOLN, Dosing Weight 90, kg, RQID, STAT, Start date: 11/23/19 6:46:00 CDT, Duration: 30 day, Stop date: 12/22/19 19:00:00 CDT, 0 Notes: (Same as: Maggie) Start Date: 11/23/19 Stop Date: 12/05/19 Status: Discontinuedalbuterol-ipratropium 2.5-0.5 mg inhalation solution 3 mL, Route: NEB, Drug Form: SOLN, Dosing Weight 90, kg, RQ6H, PRN as needed for shortness of breathor wheezing, Start date: 12/12/19 16:35:00 CDT, Duration: 30 day, Stop date: 01/11/20 16:34:00 CDT, 0 Notes: (Same as: Maggie) Start Date: 12/12/19 Stop Date: 12/20/19 Status: Discontinuedalbuterol-ipratropium 2.5-0.5 mg inhalation solution 3 mL, Route: NEB, Drug Form: SOLN, Dosing Weight 90, kg, RQ6H, Start date: 12/05/19 8:00:00 CDT, Duration: 30 day, Stop date: 01/04/20 2:00:00 CDT, 0 Notes: (Same as: Maggie) Start Date: 12/05/19 Stop Date: 12/12/19 Status: DiscontinuedamLODIPine 10 mg, 1 tab, Route: PO, Drug form: TAB, Daily, Dosing Weight 100, kg, Start date: 11/22/19 23:45:00CDT, Duration: 30 day, Stop date: 12/22/19 9:00:00 CDT, 0 Notes: (Same as: Juli) Start Date: 11/22/19 Stop Date: 12/07/19 Status: DiscontinuedamLODIPine 5 mg, 1 tab, Route: PO, Drug form: TAB, Daily, Dosing Weight 100, kg, Start date: 12/08/19 9:00:00 CDT, Duration: 30 day, Stop date: 01/06/20 9:00:00 CDT, 0 Notes: (Same as: Juli) Start Date: 12/08/19 Stop Date: 12/20/19 Status: DiscontinuedamLODIPine 5 mg oral tablet 5 mg = 1 tab, PO, Daily, # 30 tab, 0 Refill(s), Pharmacy: [facility]/pharmacy #[id number], 149.86, cm, 12/06/19 15:12:00 CDT, Height, 90, kg, 11/23/19 2:25:00 CDT, Weight Start Date: 12/19/19 Stop Date: 01/18/20 Status: OrderedANES acetaminophen 1,000 mg, 100 mL, Route: IVPB, Drug form: INJ, ONCE, Dosing Weight 90, kg, PRN Pain Score 1-3, Startdate: 12/05/19 17:22:00 CDT, 0 Notes: Infuse over 15 minutesDo not exceed 4gm/day of acetaminophen MEDICATION WASTE ProductSize: 1000 mgProduct Wasted: ___ mg Start Date: 12/05/19 Stop Date: 12/05/19 Status: DiscontinuedANES fentaNYL 25 microgram, 0.5 mL, Route: IVP, Drug form: INJ, Q5Min, Dosing Weight 90, kg, PRN Pain Score 4-6, Priority: Routine, Start date: 12/05/19 17:22:00 CDT, Duration: 4 doses or times, Stop date: 12/06/19 0:00:00 CDT, 0 Notes: (Same as: Sublimaze) Preservative free. Start Date: 12/05/19 Stop Date: 12/05/19 Status: DiscontinuedANES flumazenil 0.2 mg, 2 mL, Route: IVP, Drug form: INJ, PRN, Dosing Weight 90, kg, PRN Benzodiazepine Reversal, Initial dose, Start date: 12/05/19 17:22:00 CDT, Stop date: 12/06/19 0:00:00 CDT, 0 Notes: (Same as: Romazicon) Start Date: 12/05/19 Stop Date: 12/05/19 Status: DiscontinuedANES hydrALAZINE 10 mg, 0.5 mL, Route: IVP, Drug form: INJ, Q20Min, Dosing Weight 90, kg, PRN Elevated BP, Start date: 12/05/19 17:22:00 CDT, Duration: 2 doses or times, Stop date: 12/06/19 0:00:00 CDT, 0 Notes: (Same as: Apresoline)Push over 5 minutes Start Date: 12/05/19 Stop Date: 12/05/19 Status: DiscontinuedANES labetalol 10 mg, 2 mL, Route: IVP, Drug form: INJ, Q5Min, Dosing Weight 90, kg, PRN Elevated BP, Start date: 12/05/19 17:22:00 CDT, Duration: 5 doses or times, Stop date: 12/06/19 0:00:00 CDT, 0 Start Date: 12/05/19 Stop Date: 12/05/19 Status: DiscontinuedANES naloxone 0.4 mg, 1 mL, Route: IVP, Drug form: INJ, Q2MIN, Dosing Weight 90, kg, PRN Narcotic Reversal, Start date: 12/05/19 17:22:00 CDT, Duration: 8 doses or times, Stop date: 12/06/19 0:00:00 CDT, 0 Notes: Same as Narcan Start Date: 12/05/19 Stop Date: 12/05/19 Status: DiscontinuedANES ondansetron 4 mg, 2 mL, Route: IVP, Drug form: INJ, ONCE, Dosing Weight 90, kg, PRN Nausea & Vomiting, Startdate: 12/05/19 17:22:00 CDT, 0 Notes: (Same as: Vera) MEDICATION WASTE Product Size: 4 mgProduct Wasted: ___ mg Start Date: 12/05/19 Stop Date: 12/05/19 Status: DiscontinuedAtivan 1 mg, Route: IVP, Drug form: INJ, ONCE, Dosing Weight 100, kg, PRN as needed for anxiety, Priority: Routine, Start date: 11/22/19 15:28:00 CDT Start Date: 11/22/19 Stop Date: 11/22/19 Status: DiscontinuedAtivan 0.5 mg, 0.25 mL, Route: IVP, Drug form: INJ, ONCE, Dosing Weight 100, kg, PRN as needed for anxiety,Priority: Routine, Start date: 11/22/19 15:28:00 CDT, 0 Notes: (Same as: Ativan) Start Date: 11/22/19 Stop Date: 11/22/19 Status: CompletedAtivan 0.5 mg, 0.25 mL, Route: IVP, Drug form: INJ, ONCE, Dosing Weight 100, kg, PRN as needed for anxiety,Priority: Routine, Start date: 11/22/19 15:29:00 CDT, 0 Notes: (Same as: Ativan) Start Date: 11/22/19 Stop Date: 11/22/19 Status: Completedbaclofen 5 mg, 1 tab, Route: GT, Drug form: TAB, Q8H, Dosing Weight 90, kg, PRN Muscle Spasms, Start date: 12/05/19 20:45:00 CDT, Duration: 30 day, Stop date: 01/04/20 20:44:00 CDT, 0 Start Date: 12/05/19 Stop Date: 12/12/19 Status: DiscontinuedBlistex topical ointment 1 appl, Route: TOP, BID, Drug form: BALM, Start date: 12/11/19 9:00:00 CDT, Duration: 30 day, Stop date: 01/09/20 17:00:00 CDT, 0 Notes: Same as: Blistex Start Date: 12/11/19 Stop Date: 12/20/19 Status: Discontinuedcalcium gluconate (ANES) Route: IV, Drug form: INJ, ONCE, Stop date: 12/05/19 11:21:00 CDT Start Date: 12/05/19 Stop Date: 12/05/19 Status: CompletedCalmoseptine topical ointment 1 appl, Route: TOP, PRN, Drug form: OINT, PRN Redness, Start date: 12/10/19 18:30:00 CDT, Duration: 30 day, Stop date: 01/09/20 18:29:00 CDT, Dosing, 0 Notes: (Same as: Calmoseptine) Start Date: 12/10/19 Stop Date: 12/20/19 Status: Discontinuedchlorhexidine topical 0.12% liquid 15 mL, Route: Swab Mouth, Q12H, Drug form: LIQ, Start date: 12/06/19 9:00:00 CDT, Duration: 30 day, Stop date: 01/04/20 21:00:00 CDT, 0 Notes: (Same As: Peridex) Start Date: 12/06/19 Stop Date: 12/09/19 Status: Discontinuedchlorhexidine topical 0.12% liquid 15 mL, Route: Swab Mouth, PRN, Drug form: LIQ, PRN Other -See Comment, Start date: 12/06/19 0:13:00 CDT, Duration: 30 day, Stop date: 01/05/20 0:12:00 CDT, 0 Notes: (Same As: Peridex) Start Date: 12/06/19 Stop Date: 12/09/19 Status: DiscontinuedclonazePAM 0.5 mg, 1 tab, Route: PO, Drug form: TAB, BID, Dosing Weight 90, kg, Start date: 12/11/19 17:00:00 CDT, Duration: 30 day, Stop date: 01/10/20 9:00:00 CDT, 0 Notes: (Same As: KlonoPIN) Hazardous Drug Group 3:Reproductive risk Hazardous Drug -- Refer to safehandling procedure PPE Matrix Start Date: 12/11/19 Stop Date: 12/20/19 Status: DiscontinuedclonazePAM 0.5 mg oral tablet 0.5 mg = 1 tab, PO, BID, 0 Refill(s) Start Date: 11/24/19 Status: [id number] (bolus) IV 12.5 gm, 25 mL, Route: IVP, Drug Form: INJ, Dosing Weight 90, kg, PRN, PRN Blood Glucose Results, Start date: 12/19/19 8:18:00 CDT, Duration: 30 day, Stop date: 01/18/20 8:17:00 CDT, 0 Start Date: 12/19/19 Stop Date: 12/20/19 Status: [id number] (bolus) IV 25 gm, 50 mL, Route: IVP, Drug Form: INJ, Dosing Weight 90, kg, PRN, PRN Blood Glucose Results, Start date: 12/19/19 8:18:00 CDT, Duration: 30 day, Stop date: 01/18/20 8:17:00 CDT, 0 Start Date: 12/19/19 Stop Date: 12/20/19 Status: [id number] (bolus) IV 12.5 gm, 25 mL, Route: IVP, Drug Form: INJ, Dosing Weight 90, kg, PRN, PRN Blood Glucose Results, Start date: 12/19/19 8:19:00 CDT, Duration: 30 day, Stop date: 01/18/20 8:18:00 CDT, 0 Start Date: 12/19/19 Stop Date: 12/20/19 Status: [id number] (bolus) IV 25 gm, 50 mL, Route: IVP, Drug Form: INJ, Dosing Weight 90, kg, PRN, PRN Blood Glucose Results, Start date: 12/19/19 8:19:00 CDT, Duration: 30 day, Stop date: 01/18/20 8:18:00 CDT, 0 Start Date: 12/19/19 Stop Date: 12/20/19 Status: Discontinueddexamethasone (ANES) Route: IV, Drug form: INJ, ONCE, Stop date: 12/05/19 9:39:00 CDT Start Date: 12/05/19 Stop Date: 12/05/19 Status: CompletedDextrose 5% with 0.45% NaCl IV 1,000 mL 1,000 mL, Rate: 40 ml/hr, Infuse over: 25 hr, Route: IV, Dosing Weight 90 kg, Total Volume: 1,000, Start date: 11/29/19 6:28:00 CDT, Duration: 30 day, Stop date: 12/29/19 6:27:00 CDT, 1.98, m2, 0 Start Date: 11/29/19 Stop Date: 12/01/19 Status: DiscontinuedDextrose 5% with 0.45% NaCl IV 1,000 mL 1,000 mL, Rate: 75 ml/hr, Infuse over: 13.3 hr, Route: IV, Dosing Weight 90 kg, Total Volume: 1,000,Start date: 12/09/19 19:56:00 CDT, Duration: 30 day, Stop date: 01/08/20 19:55:00 CDT, 1.98, m2, 0 Start Date: 12/09/19 Stop Date: 12/10/19 Status: DiscontinuedDextrose 50% in Water IV 12.5 gm, 25 mL, Route: IVP, Drug Form: INJ, Dosing Weight 90, kg, PRN, PRN Blood Glucose Results, Start date: 12/07/19 12:21:00 CDT, Duration: 30 day, Stop date: 01/06/20 12:20:00 CDT, 0 Start Date: 12/07/19 Stop Date: 12/10/19 Status: DiscontinuedDextrose 50% in Water IV 25 gm, 50 mL, Route: IVP, Drug Form: INJ, Dosing Weight 90, kg, PRN, PRN Blood Glucose Results, Start date: 12/07/19 12:21:00 CDT, Duration: 30 day, Stop date: 01/06/20 12:20:00 CDT, 0 Start Date: 12/07/19 Stop Date: 12/10/19 Status: DiscontinuedDextrose 50% Syringe (D50W) 12.5 gm, 25 mL, Route: IVP, Drug Form: INJ, Dosing Weight 90, kg, PRN, PRN Blood Glucose Results, Start date: 11/29/19 21:47:00 CDT, Duration: 30 day, Stop date: 12/29/19 21:46:00 CDT, 0 Start Date: 11/29/19 Stop Date: 12/01/19 Status: DiscontinuedDextrose 50% Syringe (D50W) 25 gm, 50 mL, Route: IVP, Drug Form: INJ, Dosing Weight 90, kg, PRN, PRN Blood Glucose Results, Start date: 11/29/19 21:47:00 CDT, Duration: 30 day, Stop date: 12/29/19 21:46:00 CDT, 0 Start Date: 11/29/19 Stop Date: 12/01/19 Status: DiscontinuedDextrose 50% Syringe (D50W) 12.5 gm, 25 mL, Route: IVP, Drug Form: INJ, Dosing Weight 90, kg, PRN, PRN Blood Glucose Results, Start date: 11/23/19 17:47:00 CDT, Duration: 30 day, Stop date: 12/23/19 17:46:00 CDT, 0 Start Date: 11/23/19 Stop Date: 11/29/19 Status: DiscontinuedDextrose 50% Syringe (D50W) 25 gm, 50 mL, Route: IVP, Drug Form: INJ, Dosing Weight 90, kg, PRN, PRN Blood Glucose Results, Start date: 11/23/19 17:47:00 CDT, Duration: 30 day, Stop date: 12/23/19 17:46:00 CDT, 0 Start Date: 11/23/19 Stop Date: 11/29/19 Status: DiscontinuedDextrose 50% Syringe (D50W) 12.5 gm, 25 mL, Route: IVP, Drug Form: INJ, Dosing Weight 90, kg, PRN, PRN Blood Glucose Results, Start date: 12/01/19 13:30:00 CDT, Duration: 30 day, Stop date: 12/31/19 13:29:00 CDT, 0 Start Date: 12/01/19 Stop Date: 12/06/19 Status: DiscontinuedDextrose 50% Syringe (D50W) 25 gm, 50 mL, Route: IVP, Drug Form: INJ, Dosing Weight 90, kg, PRN, PRN Blood Glucose Results, Start date: 12/01/19 13:30:00 CDT, Duration: 30 day, Stop date: 12/31/19 13:29:00 CDT, 0 Start Date: 12/01/19 Stop Date: 12/06/19 Status: DiscontinuedDextrose 50% Syringe (D50W) 12.5 gm, 25 mL, Route: IVP, Drug Form: INJ, Dosing Weight 90, kg, PRN, PRN Blood Glucose Results, Start date: 12/10/19 11:56:00 CDT, Duration: 30 day, Stop date: 01/09/20 11:55:00 CDT, 0 Start Date: 12/10/19 Stop Date: 12/19/19 Status: DiscontinuedDextrose 50% Syringe (D50W) 25 gm, 50 mL, Route: IVP, Drug Form: INJ, Dosing Weight 90, kg, PRN, PRN Blood Glucose Results, Start date: 12/10/19 11:56:00 CDT, Duration: 30 day, Stop date: 01/09/20 11:55:00 CDT, 0 Start Date: 12/10/19 Stop Date: 12/19/19 Status: DiscontinuedDextrose 50% Syringe (D50W) 12.5 gm, 25 mL, Route: IVP, Drug Form: INJ, Dosing Weight 90, kg, PRN, PRN Blood Glucose Results, Start date: 12/06/19 12:15:00 CDT, Duration: 30 day, Stop date: 01/05/20 12:14:00 CDT, 0 Start Date: 12/06/19 Stop Date: 12/07/19 Status: DiscontinuedDextrose 50% Syringe (D50W) 25 gm, 50 mL, Route: IVP, Drug Form: INJ, Dosing Weight 90, kg, PRN, PRN Blood Glucose Results, Start date: 12/06/19 12:15:00 CDT, Duration: 30 day, Stop date: 01/05/20 12:14:00 CDT, 0 Start Date: 12/06/19 Stop Date: 12/07/19 Status: DiscontinuedDextrose 50% Syringe (D50W) 50 mL, Route: IVP, Dosing Weight 90, kg, ONCE, Start date: 11/23/19 10:35:00 CDT, Stop date: 11/23/19 10:35:00 CDT Start Date: 11/23/19 Stop Date: 11/23/19 Status: DiscontinuedDextrose 50% Syringe (D50W) 12.5 gm, 25 mL, Route: IVP, Drug Form: INJ, Dosing Weight 90, kg, PRN, PRN Blood Glucose Results, Start date: 12/16/19 15:42:00 CDT, Duration: 30 day, Stop date: 01/15/20 15:41:00 CDT, 0 Start Date: 12/16/19 Stop Date: 12/19/19 Status: DiscontinuedDextrose 50% Syringe (D50W) 25 gm, 50 mL, Route: IVP, Drug Form: INJ, Dosing Weight 90, kg, PRN, PRN Blood Glucose Results, Start date: 12/16/19 15:42:00 CDT, Duration: 30 day, Stop date: 01/15/20 15:41:00 CDT, 0 Start Date: 12/16/19 Stop Date: 12/19/19 Status: DiscontinuedDextrose 50% Syringe (D50W) 12.5 gm, 25 mL, Route: IVP, Drug Form: INJ, Dosing Weight 100, kg, PRN, PRN Blood Glucose Results, Start date: 11/22/19 16:16:00 CDT, Duration: 30 day, Stop date: 12/22/19 16:15:00 CDT, 0 Start Date: 11/22/19 Stop Date: 11/23/19 Status: DiscontinuedDextrose 50% Syringe (D50W) 25 gm, 50 mL, Route: IVP, Drug Form: INJ, Dosing Weight 100, kg, PRN, PRN Blood Glucose Results, Start date: 11/22/19 16:16:00 CDT, Duration: 30 day, Stop date: 12/22/19 16:15:00 CDT, 0 Start Date: 11/22/19 Stop Date: 11/23/19 Status: Discontinueddocusate 100 mg, 1 cap, Route: PO, Drug form: CAP, Q12H, Dosing Weight 90, kg, Priority: STAT, Start date: 11/23/19 7:53:00 CDT, Duration: 30 day, Stop date: 12/22/19 21:00:00 CDT, 0 Notes: (Same as: Colace) (Do Not Crush) Start Date: 11/23/19 Stop Date: 11/25/19 Status: Discontinuedenoxaparin 30 mg, 0.3 mL, Route: SUB-Q, Drug form: INJ, [id number], Dosing Weight 100, kg, (For Patients CrCl > 30), Start date: 11/22/19 17:00:00 CDT, Duration: 30 day, Stop date: 12/22/19 5:00:00 CDT, 0 Notes: (Same as: Lovenox) Start Date: 11/22/19 Stop Date: 11/22/19 Status: DiscontinuedePHEDrine (ANES) Route: IV, Drug form: INJ, ONCE, Stop date: 12/05/19 8:58:00 CDT Start Date: 12/05/19 Stop Date: 12/05/19 Status: CompletedfentaNYL 25 microgram, 0.5 mL, Route: IVP, Drug form: INJ, ONCE, Dosing Weight 100, kg, Priority: STAT, Startdate: 11/22/19 7:54:00 CDT, Stop date: 11/22/19 7:54:00 CDT, 0 Notes: (Same as: Sublimaze) Preservative free. Start Date: 11/22/19 Stop Date: 11/22/19 Status: CompletedfentaNYL (ANES) Route: IV, Drug form: INJ, ONCE, Stop date: 12/05/19 9:44:00 CDT Start Date: 12/05/19 Stop Date: 12/05/19 Status: CompletedfentaNYL - one time ICU bolus dose 50 microgram, 1 mL, Route: IVP, Drug form: INJ, ONCE, Dosing Weight 90, kg, Start date: 12/05/19 20:45:00 CDT, Stop date: 12/05/19 20:45:00 CDT, 0 Notes: (Same as: Sublimaze) Preservative free. Start Date: 12/05/19 Stop Date: 12/05/19 Status: Completedfurosemide 40 mg, 4 mL, Route: IVP, Drug form: INJ, ONCE, Dosing Weight 90, kg, Priority: STAT, Start date: 12/12/19 8:02:00 CDT, Stop date: 12/12/19 8:02:00 CDT, 0 Notes: (Same as: Lasix) MEDICATION WASTE Product Size: 40 mgProduct Wasted: ___ mg Start Date: 12/12/19 Stop Date: 12/12/19 Status: Completedfurosemide 40 mg, 4 mL, Route: IVP, Drug form: INJ, BID Diuretic, Dosing Weight 90, kg, Start date: 12/12/19 14:00:00 CDT, Duration: 30 day, Stop date: 01/11/20 6:00:00 CDT, 0 Notes: (Same as: Lasix) MEDICATION WASTE Product Size: 40 mgProduct Wasted: ___ mg Start Date: 12/12/19 Stop Date: 12/12/19 Status: Discontinuedgabapentin 100 mg, 1 cap, Route: PO, Drug form: CAP, Q8H, Dosing Weight 100, kg, Start date: 11/23/19 16:00:00 CDT, Duration: 30 day, Stop date: 12/23/19 8:00:00 CDT, 0 Notes: (Same as: Neurontin) Start Date: 11/23/19 Stop Date: 11/24/19 Status: Discontinuedgabapentin 300 mg, 1 cap, Route: PO, Drug form: CAP, Q8H, Dosing Weight 100, kg, Priority: NOW, Start date: 11/22/19 16:10:00 CDT, Duration: 30 day, Stop date: 12/22/19 16:00:00 CDT, 0 Notes: (Same as: Neurontin) Start Date: 11/22/19 Stop Date: 11/23/19 Status: Discontinuedglucagon 1 mg, Route: IM, Drug form: PDR/INJ, PRN, Dosing Weight 90, kg, PRN Blood Glucose Results, Start date: 11/29/19 21:47:00 CDT, Duration: 30 day, Stop date: 12/29/19 21:46:00 CDT, 0 Start Date: 11/29/19 Stop Date: 12/01/19 Status: Discontinuedglucagon 1 mg, Route: IM, Drug form: PDR/INJ, PRN, Dosing Weight 90, kg, PRN Blood Glucose Results, Start date: 11/23/19 17:47:00 CDT, Duration: 30 day, Stop date: 12/23/19 17:46:00 CDT, 0 Start Date: 11/23/19 Stop Date: 11/29/19 Status: Discontinuedglucagon 1 mg, Route: IM, Drug form: PDR/INJ, PRN, Dosing Weight 90, kg, PRN Blood Glucose Results, Start date: 12/01/19 13:30:00 CDT, Duration: 30 day, Stop date: 12/31/19 13:29:00 CDT, 0 Start Date: 12/01/19 Stop Date: 12/06/19 Status: Discontinuedglucagon 1 mg, Route: IM, Drug form: PDR/INJ, PRN, Dosing Weight 90, kg, PRN Blood Glucose Results, Start date: 12/19/19 8:18:00 CDT, Duration: 30 day, Stop date: 01/18/20 8:17:00 CDT, 0 Start Date: 12/19/19 Stop Date: 12/20/19 Status: Discontinuedglucagon 1 mg, Route: IM, Drug form: PDR/INJ, PRN, Dosing Weight 90, kg, PRN Blood Glucose Results, Start date: 12/19/19 8:19:00 CDT, Duration: 30 day, Stop date: 01/18/20 8:18:00 CDT, 0 Start Date: 12/19/19 Stop Date: 12/20/19 Status: Discontinuedglucagon 1 mg, Route: IM, Drug form: PDR/INJ, PRN, Dosing Weight 90, kg, PRN Blood Glucose Results, Start date: 12/10/19 11:56:00 CDT, Duration: 30 day, Stop date: 01/09/20 11:55:00 CDT, 0 Start Date: 12/10/19 Stop Date: 12/19/19 Status: Discontinuedglucagon 1 mg, Route: IM, Drug form: PDR/INJ, PRN, Dosing Weight 90, kg, PRN Blood Glucose Results, Start date: 12/06/19 12:15:00 CDT, Duration: 30 day, Stop date: 01/05/20 12:14:00 CDT, 0 Start Date: 12/06/19 Stop Date: 12/07/19 Status: Discontinuedglucagon 1 mg, Route: IM, Drug form: PDR/INJ, PRN, Dosing Weight 90, kg, PRN Blood Glucose Results, Start date: 12/16/19 15:42:00 CDT, Duration: 30 day, Stop date: 01/15/20 15:41:00 CDT, 0 Start Date: 12/16/19 Stop Date: 12/19/19 Status: Discontinuedglucagon 1 mg, Route: IM, Drug form: PDR/INJ, PRN, Dosing Weight 90, kg, PRN Blood Glucose Results, Start date: 12/07/19 12:21:00 CDT, Duration: 30 day, Stop date: 01/06/20 12:20:00 CDT, 0 Start Date: 12/07/19 Stop Date: 12/10/19 Status: Discontinuedglucagon 1 mg, Route: IM, Drug form: PDR/INJ, PRN, Dosing Weight 100, kg, PRN Blood Glucose Results, Start date: 11/22/19 16:16:00 CDT, Duration: 30 day, Stop date: 12/22/19 16:15:00 CDT, 0 Start Date: 11/22/19 Stop Date: 11/23/19 Status: DiscontinuedHumalog 10 unit, 0.1 mL, Route: SUB-Q, Drug form: SOLN, ONCE, Dosing Weight 90, kg, Start date: 12/03/19 18:26:00 CDT, Stop date: 12/03/19 18:26:00 CDT, 0 Notes: (Same as: Humalog) Roll in palms of hands gently; Do not shake vigorously. WASTE: F/P - Black; E - Municipal Trash BinStable for 28 days at room temperature.Expires in days from Date Start Date: 12/03/19 Stop Date: 12/03/19 Status: CompletedHumalog 8 unit, 0.08 mL, Route: SUB-Q, Drug form: SOLN, TID-Before Meals, Dosing Weight 90, kg, Start date: 12/04/19 16:30:00 CDT, Duration: 30 day, Stop date: 01/03/20 11:30:00 CDT, 0 Notes: (Same as: Humalog) Roll in palms of hands gently; Do not shake vigorously. WASTE: F/P - Black; E - [employer] Trash BinStable for 28 days at room temperature.Expires in days from Date Start Date: 12/04/19 Stop Date: 12/20/19 Status: DiscontinuedHumalog 10 unit, 0.1 mL, Route: SUB-Q, Drug form: SOLN, ONCE, Dosing Weight 90, kg, Start date: 12/04/19 13:08:00 CDT, Stop date: 12/04/19 13:08:00 CDT, 0 Notes: (Same as: Humalog) Roll in palms of hands gently; Do not shake vigorously. WASTE: F/P - Black; E - [employer] Trash BinStable for 28 days at room temperature.Expires in days from Date Start Date: 12/04/19 Stop Date: 12/04/19 Status: CompletedhydrALAZINE 10 mg, 0.5 mL, Route: IVP, Drug form: INJ, Q4H, Dosing Weight 100, kg, PRN Hypertension, Start date:11/22/19 16:16:00 CDT, Stop date: 12/22/19 16:15:00 CDT, 0 Notes: (Same as: Apresoline)Push over 5 minutes Start Date: 11/22/19 Stop Date: 12/20/19 Status: Discontinuedhydrocortisone 50 mg, 1 mL, Route: IV, Drug form: PDR/INJ, Q8H, Dosing Weight 90, kg, Start date: 12/06/19 0:00:00 CDT, Duration: 30 day, Stop date: 01/04/20 16:00:00 CDT, 0 Notes: (Same as: Solu-CORTEF) Start Date: 12/06/19 Stop Date: 12/07/19 Status: Discontinuedinsulin glargine 20 unit, 0.2 mL, Route: SUB-Q, Drug form: SOLN, Daily, Dosing Weight 90, kg, Start date: 12/02/19 9:00:00 CDT, Duration: 30 day, Stop date: 12/31/19 9:00:00 CDT, 0 Start Date: 12/02/19 Stop Date: 12/06/19 Status: Discontinuedinsulin isophane-NPH 5 unit, 0.05 mL, Route: SUB-Q, Drug form: INJ, BID, Dosing Weight 90, kg, Start date: 12/10/19 17:00:00 CDT, Duration: 30 day, Stop date: 01/09/20 9:00:00 CDT, 0 Notes: (Same as: Humulin N) Roll in palms of hands gently; Do not shake vigorously. WASTE: F/P - Black; E - [employer] Trash BinStable for 31 days at room temperature Expires in days from Date Start Date: 12/10/19 Stop Date: 12/12/19 Status: Discontinuedinsulin isophane-NPH 14 unit, 0.14 mL, Route: SUB-Q, Drug form: INJ, BID, Dosing Weight 90, kg, Start date: 12/13/19 9:00:00 CDT, Duration: 30 day, Stop date: 01/11/20 17:00:00 CDT, 0 Notes: (Same as: Humulin N) Roll in palms of hands gently; Do not shake vigorously. WASTE: F/P - Black; E - [facility] [employer] [employer] for 31 days at room temperature Expires in days from Date Start Date: 12/13/19 Stop Date: 12/20/19 Status: Discontinuedinsulin isophane-NPH 5 unit, 0.05 mL, Route: SUB-Q, Drug form: INJ, ONCE, Dosing Weight 90, kg, Priority: NOW, Start date: 12/12/19 19:58:00 CDT, Stop date: 12/12/19 19:58:00 CDT, 0 Notes: (Same as: Humulin N) Roll in palms of hands gently; Do not shake vigorously. WASTE: F/P - Black; E - [facility] [employer] [employer] for 31 days at room temperature Expires in days from Date Start Date: 12/12/19 Stop Date: 12/12/19 Status: Completedinsulin lispro 1 unit, 0.01 mL, Route: SUB-Q, Drug form: SOLN, Sliding Scale, Dosing Weight 90, kg, PRN Blood Glucose Results, Start date: 11/29/19 21:47:00 CDT, Duration: 30 day, Stop date: 12/29/19 21:46:00 CDT, 0 Notes: (Same as: Humalog) Roll in palms of hands gently; Do not shake vigorously. WASTE: F/P - Black; E - [facility] [employer] [employer] for 28 days at room temperature.Expires in days from Date Start Date: 11/29/19 Stop Date: 12/03/19 Status: Discontinuedinsulin lispro 2 unit, 0.02 mL, Route: SUB-Q, Drug form: SOLN, Sliding Scale, Dosing Weight 90, kg, PRN Blood Glucose Results, Start date: 11/29/19 21:47:00 CDT, Duration: 30 day, Stop date: 12/29/19 21:46:00 CDT, 0 Notes: (Same as: Humalog) Roll in palms of hands gently; Do not shake vigorously. WASTE: F/P - Black; E - [facility] [employer] [employer] for 28 days at room temperature.Expires in days from Date Start Date: 11/29/19 Stop Date: 12/03/19 Status: Discontinuedinsulin lispro 3 unit, 0.03 mL, Route: SUB-Q, Drug form: SOLN, Sliding Scale, Dosing Weight 90, kg, PRN Blood Glucose Results, Start date: 11/29/19 21:47:00 CDT, Duration: 30 day, Stop date: 12/29/19 21:46:00 CDT, 0 Notes: (Same as: Humalog) Roll in palms of hands gently; Do not shake vigorously. WASTE: F/P - Black; E - [facility] [employer] [employer] for 28 days at room temperature.Expires in days from Date Start Date: 11/29/19 Stop Date: 12/03/19 Status: Discontinuedinsulin lispro 4 unit, 0.04 mL, Route: SUB-Q, Drug form: SOLN, Sliding Scale, Dosing Weight 90, kg, PRN Blood Glucose Results, Start date: 11/29/19 21:47:00 CDT, Duration: 30 day, Stop date: 12/29/19 21:46:00 CDT, 0 Notes: (Same as: Humalog) Roll in palms of hands gently; Do not shake vigorously. WASTE: F/P - Black; E - [facility] [employer] [employer] for 28 days at room temperature.Expires in days from Date Start Date: 11/29/19 Stop Date: 12/03/19 Status: Discontinuedinsulin lispro 5 unit, 0.05 mL, Route: SUB-Q, Drug form: SOLN, Sliding Scale, Dosing Weight 90, kg, PRN Blood Glucose Results, Start date: 11/29/19 21:47:00 CDT, Duration: 30 day, Stop date: 12/29/19 21:46:00 CDT, 0 Notes: (Same as: Humalog) Roll in palms of hands gently; Do not shake vigorously. WASTE: F/P - Black; E - [facility] [employer] for 28 days at room temperature.Expires in days from Date Start Date: 11/29/19 Stop Date: 12/03/19 Status: Discontinuedinsulin lispro 2 unit, 0.02 mL, Route: SUB-Q, Drug form: SOLN, TID-Before Meals, Dosing Weight 90, kg, PRN Blood Glucose Results, Start date: 12/19/19 8:18:00 CDT, Duration: 30 day, Stop date: 01/18/20 8:17:00 CDT, 0 Notes: (Same as: Humalog) Roll in palms of hands gently; Do not shake vigorously. WASTE: F/P - Black; E - [facility] [employer] for 28 days at room temperature.Expires in days from Date Start Date: 12/19/19 Stop Date: 12/20/19 Status: Discontinuedinsulin lispro 4 unit, 0.04 mL, Route: SUB-Q, Drug form: SOLN, TID-Before Meals, Dosing Weight 90, kg, PRN Blood Glucose Results, Start date: 12/19/19 8:18:00 CDT, Duration: 30 day, Stop date: 01/18/20 8:17:00 CDT, 0 Notes: (Same as: Humalog) Roll in palms of hands gently; Do not shake vigorously. WASTE: F/P - Black; E - [facility] [employer] for 28 days at room temperature.Expires in days from Date Start Date: 12/19/19 Stop Date: 12/20/19 Status: Discontinuedinsulin lispro 6 unit, 0.06 mL, Route: SUB-Q, Drug form: SOLN, TID-Before Meals, Dosing Weight 90, kg, PRN Blood Glucose Results, Start date: 12/19/19 8:18:00 CDT, Duration: 30 day, Stop date: 01/18/20 8:17:00 CDT, 0 Notes: (Same as: Humalog) Roll in palms of hands gently; Do not shake vigorously. WASTE: F/P - Black; E - [facility] [employer] for 28 days at room temperature.Expires in days from Date Start Date: 12/19/19 Stop Date: 12/20/19 Status: Discontinuedinsulin lispro 8 unit, 0.08 mL, Route: SUB-Q, Drug form: SOLN, TID-Before Meals, Dosing Weight 90, kg, PRN Blood Glucose Results, Start date: 12/19/19 8:18:00 CDT, Duration: 30 day, Stop date: 01/18/20 8:17:00 CDT, 0 Notes: (Same as: Humalog) Roll in palms of hands gently; Do not shake vigorously. WASTE: F/P - Black; E - [facility] [employer] for 28 days at room temperature.Expires in days from Date Start Date: 12/19/19 Stop Date: 12/20/19 Status: Discontinuedinsulin lispro 10 unit, 0.1 mL, Route: SUB-Q, Drug form: SOLN, TID-Before Meals, Dosing Weight 90, kg, PRN Blood Glucose Results, Start date: 12/19/19 8:18:00 CDT, Duration: 30 day, Stop date: 01/18/20 8:17:00 CDT, 0 Notes: (Same as: Humalog) Roll in palms of hands gently; Do not shake vigorously. WASTE: F/P - Black; E - [facility] [employer] for 28 days at room temperature.Expires in days from Date Start Date: 12/19/19 Stop Date: 12/20/19 Status: Discontinuedinsulin lispro 1 unit, 0.01 mL, Route: SUB-Q, Drug form: SOLN, Bedtime, Dosing Weight 90, kg, PRN Blood Glucose Results, Start date: 12/19/19 8:19:00 CDT, Duration: 30 day, Stop date: 01/18/20 8:18:00 CDT, 0 Notes: (Same as: Humalog) Roll in palms of hands gently; Do not shake vigorously. WASTE: F/P - Black; E - [facility] [employer] [employer] for 28 days at room temperature.Expires in days from Date Start Date: 12/19/19 Stop Date: 12/20/19 Status: Discontinuedinsulin lispro 2 unit, 0.02 mL, Route: SUB-Q, Drug form: SOLN, Bedtime, Dosing Weight 90, kg, PRN Blood Glucose Results, Start date: 12/19/19 8:19:00 CDT, Duration: 30 day, Stop date: 01/18/20 8:18:00 CDT, 0 Notes: (Same as: Humalog) Roll in palms of hands gently; Do not shake vigorously. WASTE: F/P - Black; E - [facility] [employer] [employer] for 28 days at room temperature.Expires in days from Date Start Date: 12/19/19 Stop Date: 12/20/19 Status: Discontinuedinsulin lispro 3 unit, 0.03 mL, Route: SUB-Q, Drug form: SOLN, Bedtime, Dosing Weight 90, kg, PRN Blood Glucose Results, Start date: 12/19/19 8:19:00 CDT, Duration: 30 day, Stop date: 01/18/20 8:18:00 CDT, 0 Notes: (Same as: Humalog) Roll in palms of hands gently; Do not shake vigorously. WASTE: F/P - Black; E - [facility] [employer] for 28 days at room temperature.Expires in days from Date Start Date: 12/19/19 Stop Date: 12/20/19 Status: Discontinuedinsulin lispro 4 unit, 0.04 mL, Route: SUB-Q, Drug form: SOLN, Bedtime, Dosing Weight 90, kg, PRN Blood Glucose Results, Start date: 12/19/19 8:19:00 CDT, Duration: 30 day, Stop date: 01/18/20 8:18:00 CDT, 0 Notes: (Same as: Humalog) Roll in palms of hands gently; Do not shake vigorously. WASTE: F/P - Black; E - [facility] [employer] for 28 days at room temperature.Expires in days from Date Start Date: 12/19/19 Stop Date: 12/20/19 Status: Discontinuedinsulin lispro 2 unit, 0.02 mL, Route: SUB-Q, Drug form: SOLN, Sliding Scale, Dosing Weight 90, kg, PRN Blood Glucose Results, Start date: 12/10/19 11:56:00 CDT, Duration: 30 day, Stop date: 01/09/20 11:55:00 CDT, 0 Notes: (Same as: Humalog) Roll in palms of hands gently; Do not shake vigorously. WASTE: F/P - Black; E - [facility] [employer] for 28 days at room temperature.Expires in days from Date Start Date: 12/10/19 Stop Date: 12/16/19 Status: Discontinuedinsulin lispro 4 unit, 0.04 mL, Route: SUB-Q, Drug form: SOLN, Sliding Scale, Dosing Weight 90, kg, PRN Blood Glucose Results, Start date: 12/10/19 11:56:00 CDT, Duration: 30 day, Stop date: 01/09/20 11:55:00 CDT, 0 Notes: (Same as: Humalog) Roll in palms of hands gently; Do not shake vigorously. WASTE: F/P - Black; E - [facility] [employer] for 28 days at room temperature.Expires in days from Date Start Date: 12/10/19 Stop Date: 12/16/19 Status: Discontinuedinsulin lispro 6 unit, 0.06 mL, Route: SUB-Q, Drug form: SOLN, Sliding Scale, Dosing Weight 90, kg, PRN Blood Glucose Results, Start date: 12/10/19 11:56:00 CDT, Duration: 30 day, Stop date: 01/09/20 11:55:00 CDT, 0 Notes: (Same as: Humalog) Roll in palms of hands gently; Do not shake vigorously. WASTE: F/P - Black; E - [facility] [employer] for 28 days at room temperature.Expires in days from Date Start Date: 12/10/19 Stop Date: 12/20/19 Status: Discontinuedinsulin lispro 8 unit, 0.08 mL, Route: SUB-Q, Drug form: SOLN, Sliding Scale, Dosing Weight 90, kg, PRN Blood Glucose Results, Start date: 12/10/19 11:56:00 CDT, Duration: 30 day, Stop date: 01/09/20 11:55:00 CDT, 0 Notes: (Same as: Humalog) Roll in palms of hands gently; Do not shake vigorously. WASTE: F/P - Black; E - [facility] [employer] for 28 days at room temperature.Expires in days from Date Start Date: 12/10/19 Stop Date: 12/16/19 Status: Discontinuedinsulin lispro 10 unit, 0.1 mL, Route: SUB-Q, Drug form: SOLN, Sliding Scale, Dosing Weight 90, kg, PRN Blood Glucose Results, Start date: 12/10/19 11:56:00 CDT, Duration: 30 day, Stop date: 01/09/20 11:55:00 CDT, 0 Notes: (Same as: Humalog) Roll in palms of hands gently; Do not shake vigorously. WASTE: F/P - Black; E - [facility] [employer] for 28 days at room temperature.Expires in days from Date Start Date: 12/10/19 Stop Date: 12/16/19 Status: Discontinuedinsulin lispro 2 unit, 0.02 mL, Route: SUB-Q, Drug form: SOLN, TID-Before Meals, Dosing Weight 90, kg, PRN Blood Glucose Results, Start date: 12/16/19 15:42:00 CDT, Duration: 30 day, Stop date: 01/15/20 15:41:00 CDT,0 Notes: (Same as: Humalog) Roll in palms of hands gently; Do not shake vigorously. WASTE: F/P - Black; E - [facility] [employer] for 28 days at room temperature.Expires in days from Date Start Date: 12/16/19 Stop Date: 12/19/19 Status: Discontinuedinsulin lispro 4 unit, 0.04 mL, Route: SUB-Q, Drug form: SOLN, TID-Before Meals, Dosing Weight 90, kg, PRN Blood Glucose Results, Start date: 12/16/19 15:42:00 CDT, Duration: 30 day, Stop date: 01/15/20 15:41:00 CDT,0 Notes: (Same as: Humalog) Roll in palms of hands gently; Do not shake vigorously. WASTE: F/P - Black; E - [facility] [employer] for 28 days at room temperature.Expires in days from Date Start Date: 12/16/19 Stop Date: 12/19/19 Status: Discontinuedinsulin lispro 6 unit, 0.06 mL, Route: SUB-Q, Drug form: SOLN, TID-Before Meals, Dosing Weight 90, kg, PRN Blood Glucose Results, Start date: 12/16/19 15:42:00 CDT, Duration: 30 day, Stop date: 01/15/20 15:41:00 CDT,0 Notes: (Same as: Humalog) Roll in palms of hands gently; Do not shake vigorously. WASTE: F/P - Black; E - [facility] [employer] for 28 days at room temperature.Expires in days from Date Start Date: 12/16/19 Stop Date: 12/19/19 Status: Discontinuedinsulin lispro 8 unit, 0.08 mL, Route: SUB-Q, Drug form: SOLN, TID-Before Meals, Dosing Weight 90, kg, PRN Blood Glucose Results, Start date: 12/16/19 15:42:00 CDT, Duration: 30 day, Stop date: 01/15/20 15:41:00 CDT,0 Notes: (Same as: Humalog) Roll in palms of hands gently; Do not shake vigorously. WASTE: F/P - Black; E - [facility] [employer] for 28 days at room temperature.Expires in days from Date Start Date: 12/16/19 Stop Date: 12/19/19 Status: Discontinuedinsulin lispro 10 unit, 0.1 mL, Route: SUB-Q, Drug form: SOLN, TID-Before Meals, Dosing Weight 90, kg, PRN Blood Glucose Results, Start date: 12/16/19 15:42:00 CDT, Duration: 30 day, Stop date: 01/15/20 15:41:00 CDT,0 Notes: (Same as: Humalog) Roll in palms of hands gently; Do not shake vigorously. WASTE: F/P - Black; E - [facility] [employer] for 28 days at room temperature.Expires in days from Date Start Date: 12/16/19 Stop Date: 12/19/19 Status: Discontinuedinsulin lispro 1 unit, 0.01 mL, Route: SUB-Q, Drug form: SOLN, Bedtime, Dosing Weight 90, kg, PRN Blood Glucose Results, Start date: 12/16/19 15:42:00 CDT, Duration: 30 day, Stop date: 01/15/20 15:41:00 CDT, 0 Notes: (Same as: Humalog) Roll in palms of hands gently; Do not shake vigorously. WASTE: F/P - Black; E - [facility] [employer] [employer] for 28 days at room temperature.Expires in days from Date Start Date: 12/16/19 Stop Date: 12/19/19 Status: Discontinuedinsulin lispro 2 unit, 0.02 mL, Route: SUB-Q, Drug form: SOLN, Bedtime, Dosing Weight 90, kg, PRN Blood Glucose Results, Start date: 12/16/19 15:42:00 CDT, Duration: 30 day, Stop date: 01/15/20 15:41:00 CDT, 0 Notes: (Same as: Humalog) Roll in palms of hands gently; Do not shake vigorously. WASTE: F/P - Black; E - [facility] [employer] for 28 days at room temperature.Expires in days from Date Start Date: 12/16/19 Stop Date: 12/19/19 Status: Discontinuedinsulin lispro 3 unit, 0.03 mL, Route: SUB-Q, Drug form: SOLN, Bedtime, Dosing Weight 90, kg, PRN Blood Glucose Results, Start date: 12/16/19 15:42:00 CDT, Duration: 30 day, Stop date: 01/15/20 15:41:00 CDT, 0 Notes: (Same as: Humalog) Roll in palms of hands gently; Do not shake vigorously. WASTE: F/P - Black; E - [facility] [employer] for 28 days at room temperature.Expires in days from Date Start Date: 12/16/19 Stop Date: 12/19/19 Status: Discontinuedinsulin lispro 4 unit, 0.04 mL, Route: SUB-Q, Drug form: SOLN, Bedtime, Dosing Weight 90, kg, PRN Blood Glucose Results, Start date: 12/16/19 15:42:00 CDT, Duration: 30 day, Stop date: 01/15/20 15:41:00 CDT, 0 Notes: (Same as: Humalog) Roll in palms of hands gently; Do not shake vigorously. WASTE: F/P - Black; E - [facility] [employer] for 28 days at room temperature.Expires in days from Date Start Date: 12/16/19 Stop Date: 12/19/19 Status: Discontinuedinsulin lispro 2 unit, 0.02 mL, Route: SUB-Q, Drug form: SOLN, TID-Before Meals, Dosing Weight 90, kg, PRN Blood Glucose Results, Start date: 12/07/19 12:21:00 CDT, Duration: 30 day, Stop date: 01/06/20 12:20:00 CDT,0 Notes: (Same as: Humalog) Roll in palms of hands gently; Do not shake vigorously. WASTE: F/P - Black; E - [facility] [employer] for 28 days at room temperature.Expires in days from Date Start Date: 12/07/19 Stop Date: 12/10/19 Status: Discontinuedinsulin lispro 4 unit, 0.04 mL, Route: SUB-Q, Drug form: SOLN, TID-Before Meals, Dosing Weight 90, kg, PRN Blood Glucose Results, Start date: 12/07/19 12:21:00 CDT, Duration: 30 day, Stop date: 01/06/20 12:20:00 CDT,0 Notes: (Same as: Humalog) Roll in palms of hands gently; Do not shake vigorously. WASTE: F/P - Black; E - [facility] [employer] for 28 days at room temperature.Expires in days from Date Start Date: 12/07/19 Stop Date: 12/10/19 Status: Discontinuedinsulin lispro 6 unit, 0.06 mL, Route: SUB-Q, Drug form: SOLN, TID-Before Meals, Dosing Weight 90, kg, PRN Blood Glucose Results, Start date: 12/07/19 12:21:00 CDT, Duration: 30 day, Stop date: 01/06/20 12:20:00 CDT,0 Notes: (Same as: Humalog) Roll in palms of hands gently; Do not shake vigorously. WASTE: F/P - Black; E - [facility] [employer] for 28 days at room temperature.Expires in days from Date Start Date: 12/07/19 Stop Date: 12/10/19 Status: Discontinuedinsulin lispro 8 unit, 0.08 mL, Route: SUB-Q, Drug form: SOLN, TID-Before Meals, Dosing Weight 90, kg, PRN Blood Glucose Results, Start date: 12/07/19 12:21:00 CDT, Duration: 30 day, Stop date: 01/06/20 12:20:00 CDT,0 Notes: (Same as: Humalog) Roll in palms of hands gently; Do not shake vigorously. WASTE: F/P - Black; E - [facility] [employer] for 28 days at room temperature.Expires in days from Date Start Date: 12/07/19 Stop Date: 12/10/19 Status: Discontinuedinsulin lispro 10 unit, 0.1 mL, Route: SUB-Q, Drug form: SOLN, TID-Before Meals, Dosing Weight 90, kg, PRN Blood Glucose Results, Start date: 12/07/19 12:21:00 CDT, Duration: 30 day, Stop date: 01/06/20 12:20:00 CDT,0 Notes: (Same as: Humalog) Roll in palms of hands gently; Do not shake vigorously. WASTE: F/P - Black; E - [facility] [employer] for 28 days at room temperature.Expires in days from Date Start Date: 12/07/19 Stop Date: 12/10/19 Status: Discontinuedinsulin lispro 1 unit, 0.01 mL, Route: SUB-Q, Drug form: SOLN, TID-Before Meals, Dosing Weight 90, kg, PRN Blood Glucose Results, Start date: 12/03/19 0:57:00 CDT, Duration: 30 day, Stop date: 01/02/20 0:56:00 CDT, 0 Notes: (Same as: Humalog) Roll in palms of hands gently; Do not shake vigorously. WASTE: F/P - Black; E - [facility] [employer] for 28 days at room temperature.Expires in days from Date Start Date: 12/03/19 Stop Date: 12/06/19 Status: Discontinuedinsulin lispro 2 unit, 0.02 mL, Route: SUB-Q, Drug form: SOLN, TID-Before Meals, Dosing Weight 90, kg, PRN Blood Glucose Results, Start date: 12/03/19 0:57:00 CDT, Duration: 30 day, Stop date: 01/02/20 0:56:00 CDT, 0 Notes: (Same as: Humalog) Roll in palms of hands gently; Do not shake vigorously. WASTE: F/P - Black; E - [facility] [employer] for 28 days at room temperature.Expires in days from Date Start Date: 12/03/19 Stop Date: 12/06/19 Status: Discontinuedinsulin lispro 3 unit, 0.03 mL, Route: SUB-Q, Drug form: SOLN, TID-Before Meals, Dosing Weight 90, kg, PRN Blood Glucose Results, Start date: 12/03/19 0:57:00 CDT, Duration: 30 day, Stop date: 01/02/20 0:56:00 CDT, 0 Notes: (Same as: Humalog) Roll in palms of hands gently; Do not shake vigorously. WASTE: F/P - Black; E - [facility] [employer] for 28 days at room temperature.Expires in days from Date Start Date: 12/03/19 Stop Date: 12/06/19 Status: Discontinuedinsulin lispro 4 unit, 0.04 mL, Route: SUB-Q, Drug form: SOLN, TID-Before Meals, Dosing Weight 90, kg, PRN Blood Glucose Results, Start date: 12/03/19 0:57:00 CDT, Duration: 30 day, Stop date: 01/02/20 0:56:00 CDT, 0 Notes: (Same as: Humalog) Roll in palms of hands gently; Do not shake vigorously. WASTE: F/P - Black; E - [facility] [employer] Bin[employer] for 28 days at room temperature.Expires in days from Date Start Date: 12/03/19 Stop Date: 12/06/19 Status: Discontinuedinsulin lispro 5 unit, 0.05 mL, Route: SUB-Q, Drug form: SOLN, TID-Before Meals, Dosing Weight 90, kg, PRN Blood Glucose Results, Start date: 12/03/19 0:57:00 CDT, Duration: 30 day, Stop date: 01/02/20 0:56:00 CDT, 0 Notes: (Same as: Humalog) Roll in palms of hands gently; Do not shake vigorously. WASTE: F/P - Black; E - [facility] [employer] for 28 days at room temperature.Expires in days from Date Start Date: 12/03/19 Stop Date: 12/06/19 Status: Discontinuedinsulin lispro 1 unit, 0.01 mL, Route: SUB-Q, Drug form: SOLN, Bedtime, Dosing Weight 90, kg, PRN Blood Glucose Results, Start date: 12/03/19 0:57:00 CDT, Duration: 30 day, Stop date: 01/02/20 0:56:00 CDT, 0 Notes: (Same as: Humalog) Roll in palms of hands gently; Do not shake vigorously. WASTE: F/P - Black; E - [facility] [employer] for 28 days at room temperature.Expires in days from Date Start Date: 12/03/19 Stop Date: 12/06/19 Status: Discontinuedinsulin lispro 2 unit, 0.02 mL, Route: SUB-Q, Drug form: SOLN, Bedtime, Dosing Weight 90, kg, PRN Blood Glucose Results, Start date: 12/03/19 0:57:00 CDT, Duration: 30 day, Stop date: 01/02/20 0:56:00 CDT, 0 Notes: (Same as: Humalog) Roll in palms of hands gently; Do not shake vigorously. WASTE: F/P - Black; E - [facility] [employer] for 28 days at room temperature.Expires in days from Date Start Date: 12/03/19 Stop Date: 12/06/19 Status: Discontinuedinsulin lispro 3 unit, 0.03 mL, Route: SUB-Q, Drug form: SOLN, Bedtime, Dosing Weight 90, kg, PRN Blood Glucose Results, Start date: 12/03/19 0:57:00 CDT, Duration: 30 day, Stop date: 01/02/20 0:56:00 CDT, 0 Notes: (Same as: Humalog) Roll in palms of hands gently; Do not shake vigorously. WASTE: F/P - Black; E - [facility] [employer] for 28 days at room temperature.Expires in days from Date Start Date: 12/03/19 Stop Date: 12/06/19 Status: Discontinuedinsulin lispro 4 unit, 0.04 mL, Route: SUB-Q, Drug form: SOLN, Bedtime, Dosing Weight 90, kg, PRN Blood Glucose Results, Start date: 12/03/19 0:57:00 CDT, Duration: 30 day, Stop date: 01/02/20 0:56:00 CDT, 0 Notes: (Same as: Humalog) Roll in palms of hands gently; Do not shake vigorously. WASTE: F/P - Black; E - [facility] [employer] for 28 days at room temperature.Expires in days from Date Start Date: 12/03/19 Stop Date: 12/06/19 Status: Discontinuedinsulin lispro 100 units/mL injectable solution 2 unit, SUB-Q, TID-Before Meals, PRN Blood Glucose Results, before each meal, FOR BLOOD SUGAR 150-199, # 3 mL, 0 Refill(s), other Start Date: 12/19/19 Stop Date: 01/18/20 Status: Orderedinsulin lispro 100 units/mL injectable solution 4 unit, SUB-Q, TID-Before Meals, PRN Blood Glucose Results, before each meal FOR BLOOD SUGAR 200-249, # 3 mL, 0 Refill(s), other Start Date: 12/19/19 Status: Orderedinsulin lispro 100 units/mL injectable solution 6 unit, SUB-Q, TID-Before Meals, PRN Blood Glucose Results, before meal for blood sugar 250-299, # 3mL, 0 Refill(s), other Start Date: 12/19/19 Status: Orderedinsulin lispro 100 units/mL injectable solution 8 unit, SUB-Q, TID-Before Meals, PRN Blood Glucose Results, before meal, for blood sugar 300-349, # 3 mL, 0 Refill(s), other Start Date: 12/19/19 Status: Orderedinsulin lispro 100 units/mL injectable solution 10 unit, SUB-Q, TID-Before Meals, PRN Blood Glucose Results, before everymeal, for blood sugar >350, # 3 mL, 0 Refill(s), other Start Date: 12/19/19 Status: Orderedinsulin lispro 100 units/mL injectable solution 8 unit, SUB-Q, TID-Before Meals, 0 Refill(s) Start Date: 12/19/19 Stop Date: 12/19/19 Status: DiscontinuedInsulin regular 3 unit, 0.03 mL, Route: SUB-Q, Drug form: SOLN, Sliding Scale, Dosing Weight 90, kg, PRN Blood Glucose Results, Start date: 11/23/19 17:47:00 CDT, Duration: 30 day, Stop date: 12/23/19 17:46:00 CDT, 0 Notes: (Same as: Humulin R) Roll in palms of hands gently; Do not shake vigorously. WASTE:F/P - Black; E - [facility] [employer] [employer] for 31 days at room temperature Expires in days from Date Start Date: 11/23/19 Stop Date: 11/29/19 Status: DiscontinuedInsulin regular 6 unit, 0.06 mL, Route: SUB-Q, Drug form: SOLN, Sliding Scale, Dosing Weight 90, kg, PRN Blood Glucose Results, Start date: 11/23/19 17:47:00 CDT, Duration: 30 day, Stop date: 12/23/19 17:46:00 CDT, 0 Notes: (Same as: Humulin R) Roll in palms of hands gently; Do not shake vigorously. WASTE:F/P - Black; E - [facility] [employer] Bin[employer] for 31 days at room temperature Expires in days from Date Start Date: 11/23/19 Stop Date: 11/29/19 Status: DiscontinuedInsulin regular 9 unit, 0.09 mL, Route: SUB-Q, Drug form: SOLN, Sliding Scale, Dosing Weight 90, kg, PRN Blood Glucose Results, Start date: 11/23/19 17:47:00 CDT, Duration: 30 day, Stop date: 12/23/19 17:46:00 CDT, 0 Notes: (Same as: Humulin R) Roll in palms of hands gently; Do not shake vigorously. WASTE:F/P - Black; E - [facility] [employer] for 31 days at room temperature Expires in days from Date Start Date: 11/23/19 Stop Date: 11/29/19 Status: DiscontinuedInsulin regular 12 unit, 0.12 mL, Route: SUB-Q, Drug form: SOLN, Sliding Scale, Dosing Weight 90, kg, PRN Blood Glucose Results, Start date: 11/23/19 17:47:00 CDT, Duration: 30 day, Stop date: 12/23/19 17:46:00 CDT, 0 Notes: (Same as: Humulin R) Roll in palms of hands gently; Do not shake vigorously. WASTE:F/P - Black; E - [facility] [employer] Bin[employer] for 31 days at room temperature Expires in days from Date Start Date: 11/23/19 Stop Date: 11/29/19 Status: DiscontinuedInsulin regular 15 unit, 0.15 mL, Route: SUB-Q, Drug form: SOLN, Sliding Scale, Dosing Weight 90, kg, PRN Blood Glucose Results, Start date: 11/23/19 17:47:00 CDT, Duration: 30 day, Stop date: 12/23/19 17:46:00 CDT, 0 Notes: (Same as: Humulin R) Roll in palms of hands gently; Do not shake vigorously. WASTE:F/P - Black; E - [facility] [employer] Bin[employer] for 31 days at room temperature Expires in days from Date Start Date: 11/23/19 Stop Date: 11/29/19 Status: DiscontinuedInsulin regular 10 unit, 0.1 mL, Route: SUB-Q, Drug form: SOLN, ONCE, Dosing Weight 90, kg, Start date: 11/23/19 18:05:00 CDT, Stop date: 11/23/19 18:05:00 CDT, 0 Notes: (Same as: Humulin R) Roll in palms of hands gently; Do not shake vigorously. WASTE:F/P - Black; E - Municipal Trash BinStable for 31 days at room temperature Expires in days from Date Start Date: 11/23/19 Stop Date: 11/23/19 Status: CompletedInsulin regular 3 unit, 0.03 mL, Route: SUB-Q, Drug form: SOLN, Sliding Scale, Dosing Weight 90, kg, PRN Blood Glucose Results, Start date: 12/06/19 12:15:00 CDT, Duration: 30 day, Stop date: 01/05/20 12:14:00 CDT, 0 Notes: (Same as: Humulin R) Roll in palms of hands gently; Do not shake vigorously. WASTE:F/P - Black; E - Municipal Trash BinStable for 31 days at room temperature Expires in days from Date Start Date: 12/06/19 Stop Date: 12/07/19 Status: DiscontinuedInsulin regular 6 unit, 0.06 mL, Route: SUB-Q, Drug form: SOLN, Sliding Scale, Dosing Weight 90, kg, PRN Blood Glucose Results, Start date: 12/06/19 12:15:00 CDT, Duration: 30 day, Stop date: 01/05/20 12:14:00 CDT, 0 Notes: (Same as: Humulin R) Roll in palms of hands gently; Do not shake vigorously. WASTE:F/P - Black; E - Municipal Trash BinStable for 31 days at room temperature Expires in days from Date Start Date: 12/06/19 Stop Date: 12/07/19 Status: DiscontinuedInsulin regular 9 unit, 0.09 mL, Route: SUB-Q, Drug form: SOLN, Sliding Scale, Dosing Weight 90, kg, PRN Blood Glucose Results, Start date: 12/06/19 12:15:00 CDT, Duration: 30 day, Stop date: 01/05/20 12:14:00 CDT, 0 Notes: (Same as: Humulin R) Roll in palms of hands gently; Do not shake vigorously. WASTE:F/P - Black; E - Municipal Trash BinStable for 31 days at room temperature Expires in days from Date Start Date: 12/06/19 Stop Date: 12/07/19 Status: DiscontinuedInsulin regular 12 unit, 0.12 mL, Route: SUB-Q, Drug form: SOLN, Sliding Scale, Dosing Weight 90, kg, PRN Blood Glucose Results, Start date: 12/06/19 12:15:00 CDT, Duration: 30 day, Stop date: 01/05/20 12:14:00 CDT, 0 Notes: (Same as: Humulin R) Roll in palms of hands gently; Do not shake vigorously. WASTE:F/P - Black; E - Municipal Trash BinStable for 31 days at room temperature Expires in days from Date Start Date: 12/06/19 Stop Date: 12/07/19 Status: DiscontinuedInsulin regular 15 unit, 0.15 mL, Route: SUB-Q, Drug form: SOLN, Sliding Scale, Dosing Weight 90, kg, PRN Blood Glucose Results, Start date: 12/06/19 12:15:00 CDT, Duration: 30 day, Stop date: 01/05/20 12:14:00 CDT, 0 Notes: (Same as: Humulin R) Roll in palms of hands gently; Do not shake vigorously. WASTE:F/P - Black; E - Municipal Trash BinStable for 31 days at room temperature Expires in days from Date Start Date: 12/06/19 Stop Date: 12/07/19 Status: DiscontinuedInsulin regular 5 unit, Route: IVP, ONCE, Dosing Weight 90, kg, Start date: 11/23/19 10:35:00 CDT, Stop date: 11/23/19 10:35:00 CDT Start Date: 11/23/19 Stop Date: 11/23/19 Status: DiscontinuedInsulin regular 1 unit, 0.01 mL, Route: SUB-Q, Drug form: SOLN, Sliding Scale, Dosing Weight 100, kg, PRN Blood Glucose Results, Start date: 11/22/19 16:16:00 CDT, Duration: 30 day, Stop date: 12/22/19 16:15:00 CDT, 0 Notes: (Same as: Humulin R) Roll in palms of hands gently; Do not shake vigorously. WASTE:F/P - Black; E - Municipal Trash BinStable for 31 days at room temperature Expires in days from Date Start Date: 11/22/19 Stop Date: 11/23/19 Status: DiscontinuedInsulin regular 2 unit, 0.02 mL, Route: SUB-Q, Drug form: SOLN, Sliding Scale, Dosing Weight 100, kg, PRN Blood Glucose Results, Start date: 11/22/19 16:16:00 CDT, Duration: 30 day, Stop date: 12/22/19 16:15:00 CDT, 0 Notes: (Same as: Humulin R) Roll in palms of hands gently; Do not shake vigorously. WASTE:F/P - Black; E - Municipal Trash BinStable for 31 days at room temperature Expires in days from Date Start Date: 11/22/19 Stop Date: 11/23/19 Status: DiscontinuedInsulin regular 3 unit, 0.03 mL, Route: SUB-Q, Drug form: SOLN, Sliding Scale, Dosing Weight 100, kg, PRN Blood Glucose Results, Start date: 11/22/19 16:16:00 CDT, Duration: 30 day, Stop date: 12/22/19 16:15:00 CDT, 0 Notes: (Same as: Humulin R) Roll in palms of hands gently; Do not shake vigorously. WASTE:F/P - Black; E - Municipal Trash BinStable for 31 days at room temperature Expires in days from Date Start Date: 11/22/19 Stop Date: 11/23/19 Status: DiscontinuedInsulin regular 4 unit, 0.04 mL, Route: SUB-Q, Drug form: SOLN, Sliding Scale, Dosing Weight 100, kg, PRN Blood Glucose Results, Start date: 11/22/19 16:16:00 CDT, Duration: 30 day, Stop date: 12/22/19 16:15:00 CDT, 0 Notes: (Same as: Humulin R) Roll in palms of hands gently; Do not shake vigorously. WASTE:F/P - Black; E - Municipal Trash BinStable for 31 days at room temperature Expires in days from Date Start Date: 11/22/19 Stop Date: 11/23/19 Status: DiscontinuedInsulin regular 5 unit, 0.05 mL, Route: SUB-Q, Drug form: SOLN, Sliding Scale, Dosing Weight 100, kg, PRN Blood Glucose Results, Start date: 11/22/19 16:16:00 CDT, Duration: 30 day, Stop date: 12/22/19 16:15:00 CDT, 0 Notes: (Same as: Humulin R) Roll in palms of hands gently; Do not shake vigorously. WASTE:F/P - Black; E - Municipal Trash BinStable for 31 days at room temperature Expires in days from Date Start Date: 11/22/19 Stop Date: 11/23/19 Status: DiscontinuedInsulin regular (ANES) Route: IV, Drug form: INJ, ONCE, Stop date: 12/05/19 14:40:00 CDT Start Date: 12/05/19 Stop Date: 12/05/19 Status: CompletedIsolyte S PH 7.4 (ANES) 1000 mL Route: IV, Total Volume: 1,000, Start date: 12/05/19 8:08:00 CDT, Stop date: 12/05/19 9:08:00 CDT Start Date: 12/05/19 Stop Date: 12/05/19 Status: CompletedKayexalate 15 gm, Route: PO, Drug form: SUSP, ONCE, Dosing Weight 90, kg, Start date: 11/23/19 10:36:00 CDT, Stop date: 11/23/19 10:36:00 CDT Start Date: 11/23/19 Stop Date: 11/23/19 Status: DiscontinuedKlor-Con 10 = 1 tab, PO, BID, 0 Refill(s) Start Date: 11/24/19 Stop Date: 12/19/19 Status: DiscontinuedKlor-Con 10 oral tablet, extended release 10 mEq = 1 tab, PO, Daily, # 30 tab, 0 Refill(s), other Start Date: 12/19/19 Stop Date: 01/18/20 Status: OrderedLactated Ringers (Bolus) IV 500 mL, Infuse Over: 1 hr, Route: IV, ONCE, Priority: STAT, Dosing Weight 100 kg, Start date: 11/22/19 11:17:00 CDT, Stop date: 11/22/19 11:17:00 CDT Start Date: 11/22/19 Stop Date: 11/22/19 Status: CompletedLactated Ringers (Bolus) IV 1,000 mL, Infuse Over: 1 hr, Route: IV, ONCE, Priority: STAT, Dosing Weight 100 kg, Start date: 11/22/19 7:32:00 CDT, Stop date: 11/22/19 7:32:00 CDT Start Date: 11/22/19 Stop Date: 11/22/19 Status: DiscontinuedLactated Ringers IV 1,000 mL 1,000 mL, Rate: 75 ml/hr, Infuse over: 13.3 hr, Route: IV, Dosing Weight 90 kg, Total Volume: 1,000,Start date: 11/30/19 2:25:00 CDT, Duration: 1 day, Stop date: 12/01/19 2:24:00 CDT, 1.98, m2, 0 Start Date: 11/30/19 Stop Date: 11/30/19 Status: Discontinuedlansoprazole 30 mg, 10 mL, Route: PO, Drug form: SUSP, BID-Before Meals, Dosing Weight 90, kg, Start date: 12/13/19 7:30:00 CDT, Duration: 30 day, Stop date: 01/11/20 16:30:00 CDT, 0 Notes: Take 1 hour before or 2 hours after meal; Expires in 14 days. Shake well before use. (Same as:Prevacid) Compounded Product - formulation not commercially available Start Date: 12/13/19 Stop Date: 12/20/19 Status: Discontinuedlansoprazole 3 mg/mL oral suspension 30 mg = 10 mL, PO, BID-Before Meals, # 600 mL, 0 Refill(s), other Start Date: 12/19/19 Stop Date: 01/18/20 Status: OrderedLantus 100 units/mL 20 unit, 0.2 mL, Route: SUB-Q, Drug form: SOLN, Q12H, Dosing Weight 90, kg, Start date: 11/29/19 21:00:00 CDT, Duration: 30 day, Stop date: 12/29/19 9:00:00 CDT, 0 Start Date: 11/29/19 Stop Date: 11/30/19 Status: DiscontinuedLantus 100 units/mL 20 unit, 0.2 mL, Route: SUB-Q, Drug form: SOLN, Bedtime, Dosing Weight 90, kg, Start date: 11/23/19 21:00:00 CDT, Duration: 30 day, Stop date: 12/22/19 21:00:00 CDT, 0 Start Date: 11/23/19 Stop Date: 11/25/19 Status: DiscontinuedLantus 100 units/mL 20 unit, 0.2 mL, Route: SUB-Q, Drug form: SOLN, Q12H, Dosing Weight 90, kg, Start date: 11/25/19 21:00:00 CDT, Duration: 30 day, Stop date: 12/25/19 9:00:00 CDT, 0 Start Date: 11/25/19 Stop Date: 11/29/19 Status: DiscontinuedLasix 20 mg, 1 tab, Route: PO, Drug form: TAB, BID, Dosing Weight 90, kg, Start date: 12/10/19 17:00:00 CDT, Duration: 30 day, Stop date: 01/09/20 9:00:00 CDT, 0 Notes: (Same as: Lasix) May cause GI upset. Give with food or milk. Start Date: 12/10/19 Stop Date: 12/20/19 Status: DiscontinuedLasix 20 mg, 1 tab, Route: PO, Drug form: TAB, Daily, Dosing Weight 90, kg, Priority: STAT, Start date: 11/23/19 10:44:00 CDT, Duration: 30 day, Stop date: 12/23/19 9:00:00 CDT, 0 Notes: (Same as: Lasix) May cause GI upset. Give with food or milk. Start Date: 11/23/19 Stop Date: 12/10/19 Status: DiscontinuedLasix 20 mg, 2 mL, Route: IVP, Drug form: INJ, ONCE, Dosing Weight 90, kg, Priority: NOW, Start date: 12/06/19 15:35:00 CDT, Stop date: 12/06/19 15:35:00 CDT, 0 Notes: (Same as: Lasix) Start Date: 12/06/19 Stop Date: 12/06/19 Status: CompletedLevemir 20 unit, Route: SUB-Q, Bedtime, Dosing Weight 90, kg, Start date: 12/01/19 21:00:00 CDT, Duration: 30 day, Stop date: 12/30/19 21:00:00 CDT Start Date: 12/01/19 Stop Date: 12/01/19 Status: CanceledLevemir FlexTouch 100 units/mL subcutaneous solution 14 unit, SUB-Q, BID, # 3 mL, 0 Refill(s), other Start Date: 12/19/19 Stop Date: 01/18/20 Status: OrderedLevemir FlexTouch 100 units/mL subcutaneous solution 25 unit, SUB-Q, BID, # 3 mL, 3 Refill(s) Start Date: 11/24/19 Stop Date: 12/19/19 Status: Discontinuedlevothyroxine 88 mcg (0.088 mg) oral tablet 88 microgram = 1 tab, PO, Daily, 0 Refill(s) Start Date: 11/24/19 Status: Orderedlidocaine (ANES) Route: IV, Drug form: INJ, ONCE, Stop date: 12/05/19 10:35:00 CDT Start Date: 12/05/19 Stop Date: 12/05/19 Status: Completedlidocaine 1% 50 mg, 5 mL, Route: INTRADERM, Drug Form: INJ, Dosing Weight 90, kg, ONCALL, For PICC line insertion., Start date: 11/29/19 16:00:00 CDT, Duration: 30 day, Stop date: 12/29/19 15:59:00 CDT, 0 Notes: (Same as: Xylocaine) Start Date: 11/29/19 Stop Date: 12/12/19 Status: Discontinuedlidocaine 4% topical film 1 patch, TOP, Daily, X 10 day, # 10 patch, 0 Refill(s), other Start Date: 12/19/19 Stop Date: 12/29/19 Status: Orderedlidocaine topical 2% gel with applicator 1 appl, Route: NASAL, Drug Form: GEL/A, Dosing Weight 90, kg, ONCE, Start date: 12/11/19 9:07:00 CDT, Stop date: 12/11/19 9:07:00 CDT, 0 Notes: (Same as: Xylocaine Jelly, Glydo) Start Date: 12/11/19 Stop Date: 12/15/19 Status: CompletedLidoderm 5% topical film (patch) 1 patch, Route: TOP, Q24H, Drug form: FILM, Start date: 11/22/19 17:00:00 CDT, Duration: 30 day, Stop date: 12/21/19 17:00:00 CDT, 0 Notes: Apply only once for up to 12 hours in [id number] period (12 hours on and 12 hours off).(Same as: Lidoderm)"Remove old patch before application of new patch" Start Date: 11/22/19 Stop Date: 12/20/19 Status: DiscontinuedLORazepam 0.5 mg, 0.25 mL, Route: IVP, Drug form: INJ, ONCE, Dosing Weight 90, kg, Start date: 12/11/19 12:40:00 CDT, Stop date: 12/11/19 12:40:00 CDT, 0 Notes: (Same as: Ativan) Start Date: 12/11/19 Stop Date: 12/11/19 Status: CompletedLovenox 30 mg, 0.3 mL, Route: SUB-Q, Drug form: INJ, [id number], Dosing Weight 90, kg, Start date: 12/11/19 18:00:00 CDT, Duration: 30 day, Stop date: 01/10/20 6:00:00 CDT, 0 Notes: (Same as: Lovenox) Start Date: 12/11/19 Stop Date: 12/20/19 Status: DiscontinuedLovenox 30 mg, 0.3 mL, Route: SUB-Q, Drug form: INJ, [id number], Dosing Weight 90, kg, Start date: 12/10/19 21:00:00 CDT, Duration: 30 day, Stop date: 01/09/20 9:00:00 CDT, 0 Notes: (Same as: Lovenox) Start Date: 12/10/19 Stop Date: 12/20/19 Status: DiscontinuedLovenox 30 mg, 0.3 mL, Route: SUB-Q, Drug form: INJ, [id number], Dosing Weight 90, kg, Priority: NOW, Start date: 11/23/19 11:42:00 CDT, Duration: 30 day, Stop date: 12/23/19 4:00:00 CDT, 0 Notes: (Same as: Lovenox) Start Date: 11/23/19 Stop Date: 12/05/19 Status: DiscontinuedLovenox 30 mg, 0.3 mL, Route: SUB-Q, Drug form: INJ, [id number], Dosing Weight 90, kg, Start date: 12/06/19 18:00:00 CDT, Duration: 30 day, Stop date: 01/05/20 6:00:00 CDT, 0 Notes: (Same as: Lovenox) Start Date: 12/06/19 Stop Date: 12/10/19 Status: DiscontinuedLR IV 1,000 mL 1,000 mL, Rate: 75 ml/hr, Infuse over: 13.3 hr, Route: IV, Dosing Weight 90 kg, Total Volume: 1,000,Start date: 12/11/19 0:31:00 CDT, Duration: 1 day, Stop date: 12/12/19 0:30:00 CDT, 1.98, m2, 0 Start Date: 12/11/19 Stop Date: 12/12/19 Status: Completedmagnesium sulfate 2 gm, 50 mL, Route: IVPB, Drug form: INJ, ONCE, Dosing Weight 90, kg, Total dose = 2 gm, Start date:12/11/19 17:03:00 CDT, Stop date: 12/11/19 17:03:00 CDT, 0 Notes: WASTE: F/P - Sink; E - Municipal Trash Bin Start Date: 12/11/19 Stop Date: 12/11/19 Status: Completedmagnesium sulfate (ANES) 500 mg Route: IV, Drug form: INJ, Start date: 12/05/19 10:56:00 CDT, Stop date: 12/05/19 11:56:00 CDT Start Date: 12/05/19 Stop Date: 12/05/19 Status: Completedmelatonin 3 mg oral tablet 3 mg, 1 tab, Route: PO, Drug Form: TAB, Dosing Weight 90, kg, Bedtime, PRN as needed for insomnia, Start date: 11/26/19 0:11:00 CDT, Duration: 30 day, Stop date: 12/26/19 0:10:00 CDT, 0 Notes: (Same as: Melatonin) Start Date: 11/26/19 Stop Date: 12/20/19 Status: Discontinuedmorphine Sulfate 2 mg, 0.5 mL, Route: IVP, Drug form: SOLN, Q4H, Dosing Weight 90, kg, PRN Pain Score 7-10, Start date: 12/11/19 9:06:00 CDT, Duration: 30 day, Stop date: 01/10/20 9:05:00 CDT, 0 Notes: (Same as:MORPhine Sulfate) Start Date: 12/11/19 Stop Date: 12/12/19 Status: Discontinuedmorphine Sulfate 0.5 mg, 0.13 mL, Route: IVP, Drug form: SOLN, Q6H, Dosing Weight 90, kg, PRN Pain Score 7-10, Start date: 12/14/19 18:52:00 CDT, Duration: 30 day, Stop date: 01/13/20 18:51:00 CDT, 0 Notes: (Same as:MORPhine Sulfate) Start Date: 12/14/19 Stop Date: 12/20/19 Status: DiscontinuedNeurontin 300 mg, 6 mL, Route: GT, Drug form: SOLN, Q12H, Dosing Weight 90, kg, Start date: 12/05/19 21:00:00 CDT, Duration: 30 day, Stop date: 01/04/20 9:00:00 CDT, 0 Notes: (Same as: Neurontin) Start Date: 12/05/19 Stop Date: 12/10/19 Status: Discontinuednorepinephrine (ANES) Route: IV, Drug form: INJ, ONCE, Stop date: 12/05/19 15:10:00 CDT Start Date: 12/05/19 Stop Date: 12/05/19 Status: Completednorepinephrine (ANES) 10 microgram Route: IV, Drug form: INJ, Start date: 12/05/19 15:20:00 CDT, Stop date: 12/05/19 16:20:00 CDT Start Date: 12/05/19 Stop Date: 12/05/19 Status: Completednormal saline 0.9% IV 1,000 mL 1,000 mL, Rate: 75 ml/hr, Infuse over: 13.3 hr, Route: IV, Dosing Weight 90 kg, Total Volume: 1,000,Start date: 11/23/19 10:33:00 CDT, Duration: 30 day, Stop date: 12/23/19 10:32:00 CDT, 1.98, m2, 0 Start Date: 11/23/19 Stop Date: 11/25/19 Status: DiscontinuedNovoLOG FlexPen 100 units/mL injectable solution 10 unit, SUB-Q, TID-Before Meals, 0 Refill(s) Start Date: 11/24/19 Stop Date: 12/19/19 Status: DiscontinuedNS 1,000 mL 1,000 mL, Rate: 40 ml/hr, Infuse over: 25 hr, Route: IV, Dosing Weight 90 kg, Total Volume: 1,000, Start date: 12/05/19 20:50:00 CDT, Duration: 30 day, Stop date: 01/04/20 20:49:00 CDT, 1.98, m2, 0 Start Date: 12/05/19 Stop Date: 12/06/19 Status: Discontinuedocular lubricant 1 appl, Route: BOTH EYES, Q6H, Drug form: OINT, Start date: 12/06/19 6:00:00 CDT, Duration: 30 day, Stop date: 01/05/20 0:00:00 CDT, 0 Notes: (Same as: Lacri-Lube, Puralube, Duratears Naturale, Artificial Tears, and Tears Again ) Start Date: 12/06/19 Stop Date: 12/09/19 Status: DiscontinuedOfirmev 1,000 mg, 100 mL, Route: IV, Drug form: INJ, Q6H, Dosing Weight 90, kg, for > or = 50 kg, Start date: 12/11/19 12:00:00 CDT, Duration: 30 day, Stop date: 01/10/20 6:00:00 CDT, 0 Notes: Infuse over 15 minutesDo not exceed 4gm/day of acetaminophen MEDICATION WASTE ProductSize: 1000 mgProduct Wasted: ___ mg Start Date: 12/11/19 Stop Date: 12/12/19 Status: DiscontinuedOmnipaque 350mg/ml 150 mL, Route: IVP, Drug Form: SOLN, Dosing Weight 100, kg, ONCALL, STAT, Start date: 11/22/19 9:50:00 CDT, Duration: 1 doses or times, Dose = 2.2ml/kg, Max dose = 150ml -- "To be infused by RadiologyStaff ONLY" Start Date: 11/22/19 Stop Date: 11/22/19 Status: CompletedOmnipaque 350mg/ml 100 mL, Route: IVP, Drug Form: SOLN, Dosing Weight 100, kg, ONCALL, STAT, Start date: 11/22/19 7:08:00 CDT, Duration: 1 doses or times, Dose = 2.2ml/kg, Max dose = 100ml -- "To be infused by RadiologyStaff ONLY" Start Date: 11/22/19 Stop Date: 11/22/19 Status: DiscontinuedoxyCODONE 5 mg/5 mL oral solution 5 mg, 5 mL, Route: PO, Drug form: LIQ, Q6H, Dosing Weight 90, kg, PRN Pain Score 7-10, Start date: 11/25/19 7:15:00 CDT, Duration: 30 day, Stop date: 12/25/19 7:14:00 CDT, 0 Notes: (Same as: 'Roxicodone) Start Date: 11/25/19 Stop Date: 12/05/19 Status: DiscontinuedoxyCODONE 5 mg/5 mL oral solution 2.5 mg, 2.5 mL, Route: PO, Drug form: LIQ, Q6H, Dosing Weight 90, kg, PRN Pain Score 4-6, Start date: 11/25/19 7:15:00 CDT, Duration: 30 day, Stop date: 12/25/19 7:14:00 CDT, 0 Notes: (Same as: 'Roxicodone) Start Date: 11/25/19 Stop Date: 12/20/19 Status: Discontinuedpantoprazole 40 mg, Route: IVP, Drug form: INJ, Q12H, Dosing Weight 90, kg, Start date: 12/10/19 21:00:00 CDT, Duration: 30 day, Stop date: 01/09/20 9:00:00 CDT, 0 Notes: For IV push reconstitute with 10 ml 0.9% sodium chloride and push over 2 minutes. (Same as: Protonix) Start Date: 12/10/19 Stop Date: 12/12/19 Status: Discontinuedpantoprazole 40 mg, Route: IVP, Drug form: INJ, ONCE, Dosing Weight 90, kg, Priority: STAT, Start date: 12/09/19 12:40:00 CDT, Stop date: 12/09/19 12:40:00 CDT, 0 Notes: For IV push reconstitute with 10 ml 0.9% sodium chloride and push over 2 minutes. (Same as: Protonix) Start Date: 12/09/19 Stop Date: 12/09/19 Status: Completedpantoprazole additive 80 mg + Sodium Chloride 0.9% IV 100 mL 100 mL, Rate: 10 ml/hr, Infuse over: 10 hr, Route: IVPB, Dosing Weight 90 kg, Total Volume: 100, Infuse at 8 mg/hr for 72 hrs for GI bleeding, Start date: 12/09/19 17:19:00 CDT, Duration: 72 hr, Stop date: 12/12/19 17:18:00 CDT, 1.98, m2, 0 Notes: For IV push reconstitute with 10 ml 0.9% sodium chloride and push over 2 minutes. (Same as: Protonix) Start Date: 12/09/19 Stop Date: 12/10/19 Status: DiscontinuedPepcid 20 mg oral tablet 20 mg, 1 tab, Route: GT, Drug form: TAB, Q12H, Dosing Weight 90, kg, Priority: NOW, Start date: 12/06/19 12:10:00 CDT, Duration: 30 day, Stop date: 01/05/20 9:00:00 CDT, 0 Notes: (Same as: Pepcid) Start Date: 12/06/19 Stop Date: 12/20/19 Status: Discontinuedphenylephrine (ANES) Route: IV, Drug form: INJ, ONCE, Stop date: 12/05/19 10:25:00 CDT Start Date: 12/05/19 Stop Date: 12/05/19 Status: Completedphenylephrine (ANES) 100 microgram Route: IV, Drug form: INJ, Start date: 12/05/19 10:46:00 CDT, Stop date: 12/05/19 11:46:00 CDT Start Date: 12/05/19 Stop Date: 12/05/19 Status: Completedpotassium chloride 10 mEq, 50 mL, Route: IVPB, Drug form: INJ, Q1H, Dosing Weight 90, kg, Total Dose = 40 meq, Start date: 12/14/19 20:00:00 CDT, Duration: 4 doses or times, Stop date: 12/14/19 23:00:00 CDT, Peripheral Line, 0 Notes: (Same as: KCL) Infuse over 2 hours. Start Date: 12/14/19 Stop Date: 12/14/19 Status: Completedpotassium chloride 40 mEq, 30 mL, Route: NJ, Drug form: LIQ, ONCE, Dosing Weight 90, kg, Electrolyte replacement, Startdate: 12/07/19 7:51:00 CDT, Stop date: 12/07/19 7:51:00 CDT, 0 Notes: (Same as: Potassium Chloride) Start Date: 12/07/19 Stop Date: 12/07/19 Status: Completedpotassium chloride 40 mEq, 30 mL, Route: NG, Drug form: LIQ, ONCE, Dosing Weight 90, kg, Electrolyte replacement, Startdate: 12/12/19 8:51:00 CDT, Stop date: 12/12/19 8:51:00 CDT, 0 Notes: (Same as: Potassium Chloride) Start Date: 12/12/19 Stop Date: 12/12/19 Status: Completedpotassium chloride 20 mEq/15 mL oral liquid (KCL) 40 mEq, 30 mL, Route: PO, Drug form: LIQ, ONCE, Dosing Weight 90, kg, Start date: 12/17/19 13:56:00 CDT, Stop date: 12/17/19 13:56:00 CDT, 0 Notes: (Same as: Potassium Chloride) Start Date: 12/17/19 Stop Date: 12/17/19 Status: Completedpotassium phosphate + Sodium Chloride 0.9% IV 250 mL 30 mmol, 10 mL, Route: IVPB, PRN, Dosing Weight 90, kg, PRN Abnormal Lab Result, Start date: 12/11/19 17:02:00 CDT, Duration: 30 day, Stop date: 01/10/20 17:01:00 CDT, Phosphate level 1.5 - 1.9 mg/dL, 0 Notes: (Same as: K Phosphate.)Do not infuse phosphorous concurrently in the same line as TPN or IVF that contains calcium. For double lumen central lines, phosphorous may be infused in a separate lumenfrom TPN. 1 mMol phoshate has 1.47 mEq potassium Infuse over 4 hours Start Date: 12/11/19 Stop Date: 12/12/19 Status: Discontinuedpotassium phosphate + Sodium Chloride 0.9% IV 250 mL 15 mmol, 5 mL, Route: IVPB, ONCE, Dosing Weight 90, kg, Start date: 12/13/19 17:19:00 CDT, Stop date: 12/13/19 17:19:00 CDT, Phosphate level 2.0 - 2.4 mg/dL, 0 Notes: (Same as: K Phosphate.)Do not infuse phosphorous concurrently in the same line as TPN or IVF that contains calcium. For double lumen central lines, phosphorous may be infused in a separate lumenfrom TPN. 1 mMol phoshate has 1.47 mEq potassium Infuse over 4 hours Start Date: 12/13/19 Stop Date: 12/15/19 Status: Completedpotassium phosphate-sodium phosphate 250 mg-280 mg-160 mg oral powder for reconstitution 1 pkt, Route: PO, Drug Form: PDR/REC, Dosing Weight 90, kg, BID, Start date: 12/15/19 17:00:00 CDT, Duration: 30 day, Stop date: 01/14/20 9:00:00 CDT, 0 Notes: (Same as: Holger) Each 1.5 gm pkt has 250mg phosphorous. Mix w/2.5oz water and stir. Start Date: 12/15/19 Stop Date: 12/17/19 Status: DiscontinuedpredniSONE 20 mg, 1 tab, Route: PO, Drug form: TAB, Daily, Dosing Weight 90, kg, Start date: 12/07/19 9:00:00 CDT, Duration: 30 day, Stop date: 01/05/20 9:00:00 CDT, 0 Notes: Take with food. Start Date: 12/07/19 Stop Date: 12/20/19 Status: DiscontinuedpredniSONE 20 mg, 1 tab, Route: PO, Drug form: TAB, Daily, Dosing Weight 100, kg, Start date: 11/23/19 9:00:00 CDT, Duration: 30 day, Stop date: 12/22/19 9:00:00 CDT, 0 Notes: Take with food. Start Date: 11/23/19 Stop Date: 12/05/19 Status: DiscontinuedpredniSONE 20 mg oral tablet 20 mg = 1 tab, PO, Daily, 0 Refill(s) Start Date: 11/24/19 Status: Orderedpropofol (ANES) Route: IV, Drug form: INJ, ONCE, Stop date: 12/05/19 9:44:00 CDT Start Date: 12/05/19 Stop Date: 12/05/19 Status: Completedpropofol (ANES) 10 mg Route: IV, Drug form: INJ, Start date: 12/05/19 8:55:00 CDT, Stop date: 12/05/19 9:55:00 CDT Start Date: 12/05/19 Stop Date: 12/05/19 Status: Completedpropofol 10 mg/mL (Titrate.) IV 1,000 mg 1,000 mg, 100 mL, Rate: Titrate, Start Dose: 5 microgram/kg/min, Titration: 5 microgram/kg/min every15 min, Goal(s): MAP > 60, RASS -1 to 0, Max Dose: 50 microgram/kg/min, Route: IV, Dosing Weight 90 kg, Total Volume: 100, Start date: 12/05/19 17:22:... 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 Same as:Diprivan Start Date: 12/05/19 Stop Date: 12/05/19 Status: Discontinuedpyridostigmine 60 mg, 1 tab, Route: PO, Drug form: TAB, Q8H, Dosing Weight 100, kg, Start date: 11/23/19 0:00:00 CDT, Duration: 30 day, Stop date: 01/21/20 16:00:00 CDT, 0 Notes: (Same as: Mestinon) Start Date: 11/23/19 Stop Date: 12/20/19 Status: Discontinuedramipril 2.5 mg, 1 cap, Route: PO, Drug form: CAP, Daily, Dosing Weight 90, kg, Start date: 11/25/19 9:00:00 CDT, Duration: 30 day, Stop date: 12/24/19 9:00:00 CDT, 0 Notes: (Same as:Altace) Start Date: 11/25/19 Stop Date: 12/07/19 Status: Discontinuedramipril 5 mg, 1 cap, Route: PO, Drug form: CAP, Daily, Dosing Weight 90, kg, Start date: 12/08/19 9:00:00 CDT, Duration: 30 day, Stop date: 01/06/20 9:00:00 CDT, 0 Notes: (Same as:Altace) Start Date: 12/08/19 Stop Date: 12/20/19 Status: Discontinuedramipril 2.5 mg oral capsule 2.5 mg = 1 cap, PO, Daily, 0 Refill(s) Start Date: 11/24/19 Status: Orderedremove patch 1 patch, Route: TOP, Q24H, Drug form: ERFILM, Start date: 11/23/19 5:00:00 CDT, Duration: 30 day, Stop date: 12/22/19 5:00:00 CDT, 0 Notes: Remove patch 12 hours after application each day. Start Date: 11/23/19 Stop Date: 12/20/19 Status: Discontinuedrosuvastatin 20 mg, 2 tab, Route: PO, Drug form: TAB, Bedtime, Dosing Weight 90, kg, Start date: 11/24/19 21:00:00 CDT, Duration: 30 day, Stop date: 12/23/19 21:00:00 CDT, 0 Notes: (Same As: Crestor) Start Date: 11/24/19 Stop Date: 12/20/19 Status: Discontinuedrosuvastatin 20 mg oral tablet 20 mg = 1 tab, PO, Daily, 0 Refill(s) Start Date: 11/24/19 Status: OrderedSaline Flush 0.9% 10 mL, Route: IVP, Drug Form: INJ, Dosing Weight 90, kg, Q8H, Start date: 11/29/19 16:00:00 CDT, Duration: 30 day, Stop date: 12/29/19 8:00:00 CDT, 0 Notes: (Same as: BD Posiflush) Start Date: 11/29/19 Stop Date: 12/20/19 Status: DiscontinuedSaline Flush 0.9% 10 mL, Route: IVP, Drug Form: INJ, Dosing Weight 90, kg, PRN, PRN Line Flush, Start date: 11/29/19 15:21:00 CDT, Duration: 30 day, Stop date: 12/29/19 15:20:00 CDT, 0 Notes: (Same as: BD Posiflush) Start Date: 11/29/19 Stop Date: 12/20/19 Status: DiscontinuedSaline Flush 0.9% 10 ml, Route: IVP, Drug Form: INJ, Dosing Weight 100, kg, PRN, PRN Line Flush, Start date: 11/22/19 16:09:00 CDT, Duration: 30 day, Stop date: 12/22/19 16:08:00 CDT, 0 Notes: Same as: BD Posiflush Sterile Start Date: 11/22/19 Stop Date: 12/10/19 Status: Discontinuedsenna 17.6 mg, 10 mL, Route: NG, Drug Form: SYRP, Dosing Weight 90, kg, Bedtime, Start date: 11/25/19 21:00:00 CDT, Duration: 30 day, Stop date: 12/24/19 21:00:00 CDT, 0 Notes: (Same as: Senokot) Start Date: 11/25/19 Stop Date: 12/20/19 Status: Discontinuedsenna 17.2 mg, 2 tab, Route: PO, Drug Form: TAB, Dosing Weight 90, kg, Q12H, STAT, Start date: 11/23/19 7:53:00 CDT, Duration: 30 day, Stop date: 12/22/19 21:00:00 CDT, 0 Notes: (Same as: Senokot) Start Date: 11/23/19 Stop Date: 11/25/19 Status: Discontinuedsertraline 25 mg oral tablet 25 mg = 1 tab, PO, Daily, 0 Refill(s) Start Date: 11/24/19 Status: OrderedSodium Chloride 0.9% IV (ANES) 235 mL + vancomycin (ANES) 1500 mg Route: IV, Drug form: INJ, Start date: 12/05/19 8:45:00 CDT, Stop date: 12/05/19 9:45:00 CDT Start Date: 12/05/19 Stop Date: 12/05/19 Status: CompletedSodium Chloride 0.9% IV (ANES) 500 mL Route: IV, Total Volume: 500, Start date: 12/05/19 8:55:00 CDT, Stop date: 12/05/19 9:55:00 CDT Start Date: 12/05/19 Stop Date: 12/05/19 Status: Completedsuccinylcholine (ANES) Route: IV, Drug form: INJ, ONCE, Stop date: 12/05/19 9:44:00 CDT Start Date: 12/05/19 Stop Date: 12/05/19 Status: CompletedSUFentanil (ANES) 50 microgram Route: IV, Drug form: INJ, Start date: 12/05/19 8:55:00 CDT, Stop date: 12/05/19 9:55:00 CDT Start Date: 12/05/19 Stop Date: 12/05/19 Status: CompletedSynthroid 88 microgram, 1 tab, Route: PO, Drug form: TAB, [id number], Dosing Weight 100, kg, Start date: 11/23/19 6:30:00 CDT, Duration: 30 day, Stop date: 01/21/20 6:30:00 CDT, 0 Notes: Take 1 hour before or 2 hours after meal; Enteral feeds may interefere with the absorption ofthis medication. (Same as:Synthroid) Start Date: 11/23/19 Stop Date: 12/20/19 Status: Discontinuedtramadol 50 mg, 1 tab, Route: GT, Drug form: TAB, Q6H, Dosing Weight 90, kg, PRN Pain Score 7-10, Start date:12/05/19 20:45:00 CDT, Duration: 30 day, Stop date: 01/04/20 20:44:00 CDT, 0 Notes: Not to exceed 400mg/day. (Same As: Ultram) Start Date: 12/05/19 Stop Date: 12/11/19 Status: Discontinuedtramadol 50 mg, 1 tab, Route: PO, Drug form: TAB, Q6H, Dosing Weight 100, kg, PRN Pain Score 4-6, Do NOT use for patients with a past medical history of seizures, Start date: 11/22/19 16:10:00 CDT, Duration: 30day, Stop date: 12/22/19 16:09:00 CDT, 0 Notes: Not to exceed 400mg/day. (Same As: Ultram) Start Date: 11/22/19 Stop Date: 11/23/19 Status: DiscontinuedTylenol 650 mg, 2 tab, Route: PO, Drug form: TAB, Q6H, Dosing Weight 90, kg, PRN Pain 1- 3/Temp > 100.4 F,Start date: 12/06/19 12:17:00 CDT, Duration: 30 day, Stop date: 01/05/20 12:16:00 CDT, 0 Notes: Do not exceed 4 gm/day. (Same as: Tylenol) Start Date: 12/06/19 Stop Date: 12/20/19 Status: DiscontinuedTylenol 325 mg oral tablet 650 mg = 2 tab, PO, PRN, 0 Refill(s) Start Date: 11/24/19 Status: Orderedvancomycin (SCIP) 1,000 mg, Route: IVPB, Drug form: INJ, [id number], Dosing Weight 90, kg, Start date: 12/05/19 18:00:00 CDT, Stop date: 12/06/19 10:00:00 CDT, ABX Indication: Surgical Prophylaxis, 0 Notes: TIME CRITICAL MEDICATION(Same As: Vancocin)Infusion rate< 1000 mg: infuse over 1 [id number] - 1500 mg: infuse over 1.5 [id number] - 2000 mg: infuse over 2 hours> 2001 mg: infuse over 2.5 hoursFor adult patients only: Round to nearest 250 mg per Medical Staff approval MEDICATION WASTE Product Size: 1000 mgProduct Wasted: ___ mg Start Date: 12/05/19 Stop Date: 12/06/19 Status: CompletedZoloft 25 mg, 1 tab, Route: PO, Drug form: TAB, Daily, Dosing Weight 100, kg, Start date: 11/23/19 9:00:00 CDT, Duration: 30 day, Stop date: 01/21/20 9:00:00 CDT, 0 Notes: (Same as: Zoloft) Start Date: 11/23/19 Stop Date: 12/20/19 Status: Discontinued Results Most recent to oldest 1 2 3 [Reference Range]: Neutrophils # [1.5-8.1 6.5 K/CMM 6.3 K/CMM 8.3 K/CMM K/CMM] (12/18/19 5:06 AM) (12/17/19 11:05 AM) *HI* (12/15/19 12:24 A M) Lymphocytes # [1.0-5.5 2.3 K/CMM 1.4 K/CMM 2.2 K/CMM K/CMM] (12/18/19 5:06 AM) (12/17/19 11:05 AM) (12/15/19 12 :24 AM) Monocytes # [0.0-0.8 0.8 K/CMM 0.6 K/CMM 0.9 K/CMM K/CMM] (12/18/19 5:06 AM) (12/17/19 11:05 AM) *HI* (12/15/19 12:24 A M) Eosinophils # [0.0-0.5 0.1 K/CMM 0.4 K/CMM 0.5 K/CMM K/CMM] (12/18/19 5:06 AM) (12/17/19 11:05 AM) (12/15/19 12 :24 AM) Basophils # [0.0-0.2 0.1 K/CMM 0.2 K/CMM 0.1 K/CMM K/CMM] (12/18/19 5:06 AM) (12/17/19 11:05 AM) (12/15/19 12 :24 AM) Large Plt Slight *NA* (11/22/19 6:40 AM) Plt Morph [Normal] Normal Normal See Note 1 (12/14/19 6:58 AM) (12/09/19 11:46 AM) (12/05/19 5:4 3 PM) Bili Indirect [0.0-1.0 0.5 mg/dL 0.9 mg/dL mg/dL] (12/07/19 12:23 AM) (11/22/19 5:52 AM) G-value Rapid [5.0-11.6 K 9.0 K d/sc d/sc] (11/22/19 6:40 AM) K-time Rapid [0.6-2.3 1.3 minutes minutes] (11/22/19 6:40 AM) Max Amplitude Rapid 64 mm [52-71 mm] (11/22/19 6:40 AM) R-time Rapid [0.4-0.7 0.4 minutes minutes] (11/22/19 6:40 AM) Angle Rapid [64-80 75 degrees degrees] (11/22/19 6:40 AM) eGFR 89 mL/min/1.73m2 2 74 mL/min/1.73m2 3 92 mL/min/ 1.73m2 4 *NA* *NA* *NA* (12/18/19 5:06 AM) (12/17/19 11:05 AM) (12/15/19 12 :24 AM) RBC product Product available Product available (12/05/19 5:53 PM) (12/05/19 5:21 PM) ABO/Rh O POS O POS O POS *Unknown* *Unknown* *Unknown* (12/05/19 1:02 AM) (11/29/19 4:04 AM) (11/22/19 5:56 AM) Anti-Xa Low Molecular 0.45 IU/mL Heparin *NA* (11/24/19 10:47 PM) A/G Ratio [0.7-1.6] 0.7 1.2 0.7 (12/11/19 10:50 AM) (12/07/19 12:23 AM) (11/22/19 5: 52 AM) Antibody Scrn Negative Negative Negative (12/05/19 1:02 AM) (11/29/19 4:04 AM) (11/22/19 5:56 AM) Albumin Lvl [3.5-5.0 2.2 g/dL 2.5 g/dL 2.4 g/dL g/dL] *LOW* *LOW* *LOW* (12/11/19 10:50 AM) (12/07/19 12:23 AM) (11/22/19 5: 52 AM) Alk Phos [39-136 unit/L] 251 unit/L 82 unit/L 102 uni t/L *HI* (12/07/19 12:23 AM) (11/22/19 5:52 AM) (12/11/19 10:50 AM) ALT [0-65 unit/L] 22 unit/L 27 unit/L 155 unit/L (12/11/19 10:50 AM) (12/07/19 12:23 AM) *HI* (11/22/19 5:52 AM ) AGAP [10.0-20.0 mEq/L] 10.9 mEq/L 7.4 mEq/L 8.9 mEq/L (12/18/19 5:06 AM) *LOW* *LOW* (12/17/19 11:05 AM) (12/15/19 12:2 4 AM) Anisocyte [None Seen] 1+ *ABN* (12/05/19 5:43 PM) AST [0-37 unit/L] 13 unit/L 11 unit/L 355 unit/L (12/11/19 10:50 AM) (12/07/19 12:23 AM) *HI* (11/22/19 5:52 AM ) B/C Ratio [6-25] 25 (12/11/19 10:50 AM) Basophils [0.0-1.0 %] 1.4 % 2.2 % 0.8 % *HI* *HI* (12/15/19 12:24 A M) (12/18/19 5:06 AM) (12/17/19 11:05 AM) BUN [7-22 mg/dL] 10 mg/dL 11 mg/dL 12 mg/dL (12/18/19 5:06 AM) (12/17/19 11:05 AM) (12/15/19 12 :24 AM) Calcium Lvl [8.5-10.5 8.3 mg/dL 8.2 mg/dL 8.3 mg/dL mg/dL] *LOW* *LOW* *LOW* (12/18/19 5:06 AM) (12/17/19 11:05 AM) (12/15/19 12 :24 AM) CHD Risk [3.90-5.80] 3.02 *LOW* (11/25/19 4:18 AM) Chol [<=199 mg/dL] 151 mg/dL (11/25/19 4:18 AM) Total CK [12-191 unit/L] 840 unit/L *HI* (11/22/19 5:52 AM) Chloride Lvl [95-109 108 mEq/L 105 mEq/L 103 mEq/L mEq/L] (12/18/19 5:06 AM) (12/17/19 11:05 AM) (12/15/19 12 :24 AM) CO2 [24-32 mEq/L] 28 mEq/L 31 mEq/L 34 mEq/L (12/18/19 5:06 AM) (12/17/19 11:05 AM) *HI* (12/15/19 12:24 A M) Creatinine Lvl [0.50-1.40 0.64 mg/dL 0.80 mg/dL 0.59 m g/dL mg/dL] (12/18/19 5:06 AM) (12/17/19 11:05 AM) (12/15/19 12 :24 AM) Bili Direct [0.0-0.3 0.3 mg/dL 0.3 mg/dL mg/dL] (12/07/19 12:23 AM) (11/22/19 5:52 AM) Eosinophils [0.0-4.0 %] 1.2 % 4.0 % 3.8 % (12/18/19 5:06 AM) (12/17/19 11:05 AM) (12/15/19 12 :24 AM) Cris Occult Bld Positive [Negative] *ABN* (12/09/19 12:45 PM) Globulin [2.7-4.2 g/dL] 3.0 g/dL 2.0 g/dL 3.4 g/dL (12/11/19 10:50 AM) *LOW* (11/22/19 5:52 AM) (12/07/19 12:23 AM) Glucose Lvl [70-99 mg/dL] 145 mg/dL 266 mg/dL 155 mg /dL *HI* *HI* *HI* (12/18/19 5:06 AM) (12/17/19 11:05 AM) (12/15/19 12 :24 AM) Hct [36.0-48.0 %] 28.9 % 28.4 % 30.4 % *LOW* *LOW* *LOW* (12/18/19 5:06 AM) (12/17/19 11:05 AM) (12/15/19 12 :24 AM) HDL [>=61 mg/dL] 50 mg/dL *LOW* (11/25/19 4:18 AM) Hgb [12.0-16.0 g/dL] 9.1 g/dL 9.3 g/dL 9.5 g/dL *LOW* *LOW* *LOW* (12/18/19 5:06 AM) (12/17/19 11:05 AM) (12/15/19 12 :24 AM) Hgb A1C [<=5.6 %] 8.5 % *HI* (11/25/19 4:18 AM) INR [0.85-1.17] 1.20 0.96 1.01 *HI* (12/05/19 1:02 AM) (11/30/19 6:13 AM ) (12/06/19 12:37 AM) Potassium Lvl [3.5-5.1 3.9 mEq/L 3.4 mEq/L 3.9 mEq/L mEq/L] (12/18/19 5:06 AM) *LOW* (12/15/19 12:24 AM) (12/17/19 11:05 AM) Lactic Acid Lvl [0.5-2.2 1.7 mMol/L 2.6 mMol/L mMol/L] (11/22/19 9:28 PM) *HI* (11/22/19 7:35 AM) LDL (Calculated) [<=99 68 mg/dL mg/dL] (11/25/19 4:18 AM) Lymphocytes [20.0-40.0 %] 23.0 % 16.3 % 18.5 % (12/18/19 5:06 AM) *LOW* *LOW* (12/17/19 11:05 AM) (12/15/19 12:2 4 AM) MCH [27.0-31.0 pg] 29.4 pg 30.7 pg 29.3 pg (12/18/19 5:06 AM) (12/17/19 11:05 AM) (12/15/19 12 :24 AM) MCHC [32.0-36.0 g/dL] 31.4 g/dL 32.8 g/dL 31.4 g/dL *LOW* (12/17/19 11:05 AM) *LOW* (12/18/19 5:06 AM) (12/15/19 12:24 AM) MCV [80.0-98.0 fL] 93.7 fL 93.8 fL 93.5 fL (12/18/19 5:06 AM) (12/17/19 11:05 AM) (12/15/19 12 :24 AM) Magnesium Lvl [1.8-2.4 2.1 mg/dL 1.9 mg/dL 2.1 mg/dL mg/dL] (12/18/19 5:06 AM) (12/17/19 11:05 AM) (12/15/19 12 :24 AM) Monocytes [2.0-12.0 %] 8.2 % 6.5 % 7.6 % (12/18/19 5:06 AM) (12/17/19 11:05 AM) (12/15/19 12 :24 AM) MPV [7.4-10.4 fL] 10.2 fL 9.7 fL 10.2 fL (12/18/19 5:06 AM) (12/17/19 11:05 AM) (12/15/19 12 :24 AM) Sodium Lvl [135-145 143 mEq/L 140 mEq/L 142 mEq/L mEq/L] (12/18/19 5:06 AM) (12/17/19 11:05 AM) (12/15/19 12 :24 AM) Phosphorus [2.5-4.5 3.2 mg/dL 2.8 mg/dL 2.4 mg/dL mg/dL] (12/18/19 5:06 AM) (12/17/19 11:05 AM) *LOW* (12/15/19 12:24 A M) Platelet [133-450 K/CMM] 200 K/CMM 197 K/CMM 193 K/C MM (12/18/19 5:06 AM) (12/17/19 11:05 AM) (12/15/19 12 :24 AM) Segs [45.0-75.0 %] 66.2 % 71.0 % 69.3 % (12/18/19 5:06 AM) (12/17/19 11:05 AM) (12/15/19 12 :24 AM) Total Protein [6.4-8.4 5.2 g/dL 4.5 g/dL 5.8 g/dL g/dL] *LOW* *LOW* *LOW* (12/11/19 10:50 AM) (12/07/19 12:23 AM) (11/22/19 5: 52 AM) PT [12.0-14.7 seconds] 15.3 seconds 12.8 seconds 13.3 seco nds *HI* (12/05/19 1:02 AM) (11/30/19 6:13 AM ) (12/06/19 12:37 AM) PTT [22.9-35.8 seconds] 31.1 seconds 28.3 seconds 29.5 sec onds (12/06/19 12:37 AM) (12/05/19 1:02 AM) (11/30/19 6:13 AM) Coronavirus (COVID-19) Not Detected Not Detected Not Detec porsche BRANDON [Not Detected] (12/20/19 12:18 PM) (11/27/19 4:00 PM) (11/22/19 11:05 AM) RBC [4.20-5.40 M/CMM] 3.09 M/CMM 3.03 M/CMM 3.25 M/CMM *LOW* *LOW* *LOW* (12/18/19 5:06 AM) (12/17/19 11:05 AM) (12/15/19 12 :24 AM) RBC Morph [Normal] Normal Normal Normal (12/14/19 6:58 AM) (12/09/19 11:46 AM) (11/22/19 6: 40 AM) RDW [11.5-14.5 %] 16.7 % 16.9 % 17.3 % *HI* *HI* *HI* (12/18/19 5:06 AM) (12/17/19 11:05 AM) (12/15/19 12 :24 AM) Bili Total [0.2-1.3 0.9 mg/dL 0.8 mg/dL 1.2 mg/dL mg/dL] (12/11/19 10:50 AM) (12/07/19 12:23 AM) (11/22/19 5: 52 AM) Trig [<=149 mg/dL] 167 mg/dL *HI* (11/25/19 4:18 AM) Troponin-I [0.00-0.40 0.02 ng/mL 0.03 ng/mL 0.04 ng/mL ng/mL] (12/18/19 5:06 AM) (12/15/19 12:24 AM) (11/22/19 9: 28 PM) UA Bacteria [None Seen Few /HPF Occasional /HPF /HPF] *NA* *NA* (12/18/19 5:06 AM) (11/30/19 8:14 PM) UA Bili [Negative] Negative Negative Negative *NA* *NA* *NA* (12/18/19 5:06 AM) (11/30/19 8:14 PM) (11/22/19 7:20 AM) UA Blood [Negative] Negative Small Negative (12/18/19 5:06 AM) *ABN* (11/22/19 7:20 AM) (11/30/19 8:14 PM) UA Color [Yellow] Dark Yellow Light Yellow Veronique *NA* *NA* *ABN* (12/18/19 5:06 AM) (11/30/19 8:14 PM) (11/22/19 7:20 AM) UA Glucose 50mg/dl 50mg/dl 50mg/dl *NA* *NA* *NA* (12/18/19 5:06 AM) (11/30/19 8:14 PM) (11/22/19 7:20 AM) UA Hyal Cast [0-2 /LPF] 7 /LPF 4 /LPF *HI* *HI* (12/18/19 5:06 AM) (11/22/19 7:20 AM) UA Ketones [Negative Negative mg/dL 20 mg/dL Negative mg /dL mg/dL] *NA* *ABN* *NA* (12/18/19 5:06 AM) (11/30/19 8:14 PM) (11/22/19 7:20 AM) UA Leuk Est [Negative] Negative Negative Negative (12/18/19 5:06 AM) (11/30/19 8:14 PM) (11/22/19 7:20 AM) UA Mucus [None Seen /LPF] Few /LPF Few /LPF Few /L PF *NA* *NA* *NA* (12/18/19 5:06 AM) (11/30/19 8:14 PM) (11/22/19 7:20 AM) UA Nitrite [Negative] Negative Negative Negative (12/18/19 5:06 AM) (11/30/19 8:14 PM) (11/22/19 7:20 AM) UA pH [5.0-8.0] 6.0 7.0 5.0 (12/18/19 5:06 AM) (11/30/19 8:14 PM) (11/22/19 7:20 AM) UA Protein [Negative 30 mg/dL Negative mg/dL 30 mg/dL mg/dL] *ABN* (11/30/19 8:14 PM) *ABN* (12/18/19 5:06 AM) (11/22/19 7:20 AM) UA RBC [0-2 /HPF] 2 /HPF 1 /HPF 7 /HPF (12/18/19 5:06 AM) (11/30/19 8:14 PM) *HI* (11/22/19 7:20 AM ) UA Spec Grav [<=1.030] 1.018 1.012 1.035 (12/18/19 5:06 AM) (11/30/19 8:14 PM) *HI* (11/22/19 7:20 AM ) UA Sq Epi [Few /LPF] Moderate /LPF Occasional /LPF *ABN* *NA* (12/18/19 5:06 AM) (11/30/19 8:14 PM) UA Sq Epi None Seen *NA* (11/22/19 7:20 AM) UA Turbidity [Clear] Slight Clear Slight *ABN* (11/30/19 8:14 PM) *ABN* (12/18/19 5:06 AM) (11/22/19 7:20 AM) UA Urobilinogen [0.1-1.0 4.0 mg/dL <1.0 mg/dL 2.0 mg/ dL mg/dL] *HI* (11/30/19 8:14 PM) *HI* (12/18/19 5:06 AM) (11/22/19 7:20 AM) UA WBC [0-5 /HPF] 10 /HPF <1 /HPF 1 /HPF *HI* (11/30/19 8:14 PM) (11/22/19 7:20 A M) (12/18/19 5:06 AM) UA Big Bar Yeast [None Seen Occasional /HPF /HPF] *ABN* (12/18/19 5:06 AM) WBC [3.7-10.4 K/CMM] 9.9 K/CMM 8.9 K/CMM 11.9 K/CMM (12/18/19 5:06 AM) (12/17/19 11:05 AM) *HI* (12/15/19 12:24 A M) ACT (TEG) Rapid [86-118 89 seconds seconds] (11/22/19 6:40 AM) Estimated % Lysis Rapid 0.0 % [0.0-7.5 %] (11/22/19 6:40 AM) Split Point Rapid 0.3 minutes *NA* (11/22/19 6:40 AM) BB Note Result Note 5 (12/05/19 1:02 AM) Ca Ion WB [1.05-1.25 1.05 mMol/L 1.06 mMol/L mMol/L] (12/07/19 12:23 AM) (12/06/19 12:21 AM) Ca Norm WB [1.05-1.25 1.09 mMol/L 1.10 mMol/L mMol/L] (12/07/19 12:23 AM) (12/06/19 12:21 AM) VLDL 33 *NA* (11/25/19 4:18 AM) 1Result Comment: Large platelets are [id number] Comment: The eGFR is calculated using the [...] eGFR should be multiplied by the estimated BMI.4Result Comment: The eGFR is calculated using the [...] eGFR should be multiplied by the estimated BMI.5Result Comment: 12/05/2019 15:15 LIPETERS Blood available, notified Alyx Weston in [place] 2 at 0305 by lp. Immunizations Not Given Vaccine Date Status Refusal Reason influenza virus vaccine, inactivated 02/23/19 Not Given Permanently Refused Procedures Procedure Date Related Diagnosis Body Site Status Cervical laminectomy Complet ed section Completed Resection Completed Shunt construction Completed Tonsillectomy Completed Social History Social History Type Response Alcohol Current, Frequency: 1-2 time s per year. Substance Abuse Use: None. Smoking Status Never smoker; Ready to bxo e: No; Concerns about tobacco use in household: No; Exposure to Tobacco Smoke None; Cigarette Smoking Last 365 Days No; Reg Smoking Cessation Counseling No entered on: 11/22/19 Assessment and Plan Extracted from: Title: Progress Note Author: Madhavi Calvin MD Date : 12/19/19 Ms. Lange is a 74 y/o F wit h PMH dementia, HTN, obesity, T2DM, [place] with prior cardiac arrest 35 years ago, myasthenia gravis on prednisone, hypothyroidism who presented on 11/21 from her TAN s/p fall. Found to have cervical hyperex tension injury as well as T4 vertebral body fracture.NSGY was consulted and recommendedC7 corpectomy and stabilization. Thesurgical intervention was del ayed by cardiac clearanceand she under wentcoronary angiogramon 11/28/2019 that revealed nonobstructive coronary artery diseaseand was subsequently cleared for surgery. The ptinitially taken t o OR but was combative and surgery delay ed. Supportive care medicine was consulted to address GOC. Eventually on 12/04 she underwent C5-6 ACDF, posterior spinal fusion with open arthrodesisC5-T1and C6-7 laminectomy. The patient was intu bated and prone for the procedureand remained intubated postoperativelyand thus admitted to the neuro ICUfor management. She was extubated on the morning of 12/05 and [facility]. Course further complicated by dysphagia. She was started on tube feeds throughNG tube. Course complicated bycoffee-ground subst ance noted in NG tubewhich was sent fo r analysis and positive for occult blood. GI consultedwith no intervention other thanPPIand monitoring, after which her hemoglobin has been stable. Also , she pulled out NG tube despite wearing restraints, difficult process to re- insert. Therefore bedside sitter was ordered. Today, she hadrepeat modified barium swallow studywhich she failed and therefore with continued recommendation for n.p.o. I consulted neurology to assessfor possible neuromuscular weakness due to myasthenia which would be interfering with dysphagia.I called and upd ated her husbandthis p.m. regarding ne w findingsand potential outcomes. Will think about it at this timesuch as other placementversusPEG tube. 1.C7 cervical fracture(S12.600A) Squaxin J collar Status postC5-6 ACDF, posterior spi nal fusion with open arthrodesis C5- T1and C6-7 laminectomy, follow up in 2 weeks with NSGY for suture removal continuepain control and PT/OT 2.Hyperextension injury of cervical spine(S19.80XA) 3.Lumbar compression fracture(S32. 000A) Old fracture per neurosurgery 4.Traumatic mediastinal hematoma(S 27.899A) The patient has had an esophagram, vasc ular injury was ruled out on imaging, suspect secondary to C7 fracture per trauma surgery Hgb stable 5.Dysphagia(R13.10) Passed MB SSon12/16/2019, started on dysphagia dietchopped diet with nectar thick liquid 6.HTN - Hypertension(I10) Controlled on amlodipine 5 mg and ramip ril 5 mg 7.Diabetes type 2, uncontrolled(E1 1.65) Blood sugars elevated increase NPH to 1 4 units twice daily and SSI Closely monitor in the setting of stero ids 8.CAD - Coronary artery disease(I2 5.10) left heart cath 11/27 with nonobstructiv eCAD, continue withLasix, ramipriland rosuvastatin 9.Chronic systolic CHF (congestive h eart failure)(I50.22) continue Lasix 20 mg PO BID continue ramipril, not on BB 10.Hypothyroid(E03.9) Continue Synthroid, TSH therapeutic 11.MG (myasthenia gravis)(G70.00) continue home prednisone and pyridostig mine avoid medications which may exacerbate her condition no evidence of crisis, seen by neurolog y 12.Acute pain(R52) Tylenol, oxycodone low-dose as needed Pain controlled 13.Physical restraint status(Z78.1 ) Not needing restraints now 14.Delirium with dementia(R41.0) At baseline patientgets agitated in termittentlysince her meningioma resection. As perdiscussion with shegets agitated intermittently and has episodes where she is calm andcompletely alert and oriented. Frequent reorientation,avoid medicati ons that can worsen delirium Clonazepam however was started based on family request(discussed safety profileand adverse effectslike worsening of delirium, fall risk, oversedationetc. with family) 15.Leukocytosis(D72.829) Resolved,reactive, continue to [place] 16.History of meningioma status post resection about 10 years ago(D32.9) MRI brainin 2008 with evidence of rig ht frontal craniotomy and right frontal encephalomalaciaand right frontal mass resection, POOL INSTALLER shunt with enlarged planum sphenoidal meningioma in comparison to MRI of 2012 -/u with NSGY as outpatient 17.Current chronic use of systemic s teroids(Z79.52) Continue home prednisone 18.Normocytic anemia(D64.9) Stable around 9, continue to monitor 19.Hypokalemia(E87.6) Slightly low, continue repletion 20.Upper GI bleed(K92.2) resolved coffee grounds,gastric flu id + for occult blood ?NG trauma or stress gastropathy versus steroid use GI consultedrecommended monitoring he moglobin continuelansoprazole BID 21.Sleep apnea/dyspnea(R06.00) CPAP at night 22.Atypical chest pain(R07.89) Currently resolved,troponin 0.03, c hest x-ray-no significant findings that could be causing chest pain, continue to monitor started on 23.Hypophosphatemia(E83.39) Repleted Lovenox subcu Pending discharge to [facility], who cannottake the patientlate in the evening, hencepatient needs to be transported in the morningtomorrow Extracted from: Title: General Neurology Author: Emmanuel Thayer MD Date: 12/13/19 Consultation General Neurology Consultation Patient: Franci Lange Consult Requested By: IM Service Reason for Consult: Dysphagia, myastheni a gravis History of Present Illness: Franci Lange is a74 year old woman wi th PMH of HTN, T2DM, HLD, HFrEF, meningioma s/p resection in 2010 with POOL INSTALLER shunt complicated by 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 She has had an extended hospital stay for optimization of her medical s tatus prior to spinal surgery, and ultim ately underwent C5-6 ACDF and C6-7 laminectomy with C5-T1 posterior spinal fusion with NSGY on 12/06/2019. Neurology was consulted on 12/12 because of persistent dysphagia in the context of known myasth enia gravis. She is currently feeling well without SOB, cough, fever, chest pain, or generalized fatigue. She says that her neck collar is very restrictive and sh e has never dealt with so much pain befo re in the past. She reports no blurry vision or double vision after our examination was completed. Review of Systems: GEN: no fever, chills, weight loss, fa tigue EYES: no blurred vision, double vision CARDIO: no chest pain, palpitations PULM: no shortness of breath, cough GI: no nausea, vomiting, diarrhea, no abd pain : no frequency, dysuria, hematuria NEURO:no dizziness, no vision change s SKIN: no rash or lesion MSK: no pain, swelling, redness, heat in muscles, no limited ROM LYMPH/IMMUNO: No lymph node enlargemen t/tenderness, no heat/cold intolerance Past Medical History: As above. Past Surgical History: POOL INSTALLER shunt placement Tonsillectomy Cervical laminectomy Recent C5-6 ACDF and C6-7 laminectomy wi th C5-T1 posterior spinal fusion on 12/06/2019 Family Medical History: Father: Heart attack; High blood pressur e Mother: High blood pressure Grandparent: Crohn's disease; Type 2 myron betes mellitus Social History: Patient is and her and mary anne johana participate in her care. She lives at an assisted living facility and at baseline requires ambulatory assist devices and some help with IADLs. Has never s moked, and previously drank alcohol occa sionally. Home Medications: Prednisone 20mg daily, Mestinon 60mg q8h See admission home medication reconcilia tion for full list. Physical Exam: Vitals Tmp(F) [...] in NAD HEENT: Bruising on face and neck/shoul ders. Squaxin J collar in place. LUNGS: Clear to auscultation bilateral ly, symmetric chest rise, no wheezing CV: S1S2 RRR, no m/r/g, equal pulses b ilaterally. ABDOMEN: Soft, nontender, nondistended with normoactive BS NEURO: Mental Status: AA&Ox3 Language: speech is clear. Naming, rep etition, fluency, and comprehension intact. Cranial Nerves: PERRL 4mm/brisk. EOMI, v isual nielsen full. Able to sustain upgaze for >30 seconds, although patient does not consistently cooperate well with the exam. Mild ptosis bilaterally (baseli ne). No facial asymmetry, facial sensati on intact, hearing intact, tongue/uvula/soft palate midline. Neck flexion/extension was not testable because of Squaxin J collar. Motor: With significant encouragement, p tyient is able to maintain all 4 extremities symmetrically antigravity to command. Patient does not cooperate consistently and appears fatigable at bilateral del toids, but when resistance is given the motor strength is 5/5 in upper and lower extremities. Tone: is normal and bulk is normal Reflexes: 2+ in bilateral biceps, brachi oradialis, patellar. Babinski absent bilaterally. Sensation: Intact to light touch bilater ally Coordination: FTN intact bilaterally. Gait: Deferred because of spinal precaut ions Pre-Morbid MRS 3-Moderate disability - requires sloane tance and ambulatory assist device Labs: Labs (Last four charted values) WBC H 11.7 (DEC 12) H 1 4.8 (DEC 11) H 12.3 (DEC 10) H 12.7 (DEC 09) Hgb L 8.7 (DEC 12) L 9. 2 (DEC 11) L 8.5 (DEC 10) L 8.4 (DEC 09) Hct L 26.9 (DEC 12) L 2 8.3 (DEC 11) L 25.9 (DEC 10) L 24.6 (DEC 09) Plt 169 (DEC 12) 184 (J UL 13) 183 (DEC 10) 159 (DEC 09) Na 139 (DEC 12) 139 (J UL 13) 142 (DEC 10) 142 (DEC 10) K L 3.4 (DEC 12) L 3. 1 (DEC 11) L 3.3 (DEC 10) L 3.4 (DEC 10) CO2 32 (DEC 12) 30 (DEC 11) 30 (DEC 10) 29 (DEC 10) Cl 101 (DEC 12) 103 (J UL 13) 106 (DEC 10) 106 (DEC 10) Cr 0.60 (DEC 12) 0.86 (DEC 11) 0.63 (DEC 10) 0.69 (DEC 10) BUN 16 (DEC 12) 16 (DEC 11) 16 (DEC 10) 15 (DEC 10) Glucose Random H 271 (DEC 12) H 35 5 (DEC 11) H 237 (DEC 10) H 230 (DEC 10) Mg 2.0 (DEC 12) 2.1 (J UL 13) 1.8 (DEC 10) 1.8 (DEC 10) Phos L 2.0 (DEC 12) L 2. 1 (DEC 11) L 1.8 (DEC 10) L 1.8 (DEC 10) Ca L 8.1 (DEC 12) L 8. 0 (DEC 11) L 8.0 (DEC 10) L 7.9 (DEC 10) PT H 15.3 (DEC 05) 12. 8 (DEC 04) 13.3 (NOV 29) 13.6 (NOV 28) INR H 1.20 (DEC 05) 0.9 6 (DEC 04) 1.01 (NOV 29) 1.04 (NOV 28) PTT 31.1 (DEC 05) 28.3 (DEC 04) 29.5 (NOV 29) 30.9 (NOV 28) Troponin 0.04 (NOV 21) 0.05 (NOV 21) Total CK H 840 (NOV 21) Imaging: Imaging data reviewed in the chart and t he relevant items are discussed below. 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 She has had an extended hospital stay for optimization of her medical s tatus prior to spinal surgery, and ultim ately underwent C5-6 ACDF and C6-7 laminectomy with C5-T1 posterior spinal fusion with NSGY on 12/06/2019. Neurology was consulted on 12/12 because of persistent dysphagia in the context of known myasth enia gravis. Her clinical history and exam are consistent with stable MG and she does not appear to be in crisis or MG exacerbation. No additional neuroimaging or diagnostic studies required at this time. Recommendations: Myasthenia gravis - Stable MG, not in crisis or exacerbati on - Continue prednisone 20mg daily and Mes tinon 60mg q8h - Encourage incentive spirometry and agg ressive participation with PT/OT/ST - We will follow up her exam again latanya mendez Patient discussed with General Neurology Attending Dr. Coy. Please [place] [phone] with any questions. 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 Patient lying in bed in mild distress. Breathing unlabored while nasal canula was positioned on her forehead. No use of accessory muscles observed. Continu e prednisone and Mestinon at their curre nt dose and schedules. Continue to monitor respiratory function. If respiratory function decreases to any degree please reconsult neurology [phone]) to discuss cristian sma exchange. Patient's called [facility] on 12/06/2019 to advise that she is allergic to IVIG but no details are provided about the type of allergic reaction experienced. Thank you for the consult we will sign o ff at this time. Fidel Pedersen PGY1 Neurology Neurology Attending The patient was seen and examined by me with the resident and I agree with the History/Exam documented. Sean Coy MD
--- OUTSIDE RECORDS SUMMARY | 2020-03-16 10:05 | XMS REPORT | Summary of Care ---
:1945 Author Organization [facility] Outpatient Imaging [facility] Address [address] [place] [id number]- Encounter HQ Marshallntr_[email or web address](FIN) [id number] Date(s): 01/05/20 - 01/05/20 [facility] Outpatient Imaging [address] [address]- [phone] Discharge Disposition: Home or Self Care Attending Physician: Andre Fernandez MD Referring Physician: Andre Fernandez MD Vital Signs No data available for [...] hyperglycemia(Confirmed) Diabetes type 2, Active uncontrolled(Confirmed) 1right [id number] Allergies, Adverse Reactions, Alerts Substance Reaction Severity Status penicillins1 rash Active ciprofloxacin Active erythromycin2 Active phenobarbital rash Active gabapentin3 Active aspirin4 severe chest pain Active immune globulin intravenous5 Act kimberly cefepime Active Cortizone-10 Active Adhesive Tape6 Active PHENobarbital7 Active 1Data migrated from [employer] on 01/22/15. Originally documented as PCN.2Data migrated from [employer] on 01/22/15. Originally documented as ERYTHROMYCIN.3 [email or web address] migrated from [employer] on 01/22/15. Originally documented as ASPIRIN.5Husband called hospital on 12/06/19 and stated that the pt was allergic to [id number] migrated from [employer] on 08/01/15. Originally documented as ADHESIVE TAPE.7Data migrated from [employer] on 01/22/15. Originally documented as PHENOBARBITAL. Medications No data available for this section Results No data available for this section Immunizations Not Given Vaccine Date Status Refusal Reason influenza virus vaccine, inactivated 02/23/19 Not Given Permanently Refused Procedures Procedure Date Related Diagnosis Body Site Status Cervical laminectomy Complet ed section Completed Resection Completed Shunt construction Completed Tonsillectomy Completed Social History Social History Type Response Alcohol Current, Frequency: 1-2 time s per year. Substance Abuse Use: None. Smoking Status Never smoker; Ready to box e: No; Concerns about tobacco use in household: No; Exposure to Tobacco Smoke None; Cigarette Smoking Last 365 Days No; Reg Smoking Cessation Counseling No entered on: 11/22/19 Assessment and Plan No data available for this section
--- OUTSIDE RECORDS SUMMARY | 2020-03-16 10:05 | XMS REPORT | Summary of Care ---
:1945 Author Organization [facility] Address [address] [place] [id number]- Encounter HQ Vish_sebastian(VIKKI) [id number] Date(s): 02/15/[address] Professional Services provided by [facility] [place] [address]- Attending Physician: David Macedo DO Admitting Physician: David Macedo DO Referring Physician: Shirley Paez MD Vital Signs Most recent to oldest 1 2 3 [Reference Range]: Height 149.86 cm (02/15/20 5:43 PM) Temperature Oral [96.4-99.1 98 DegF 97.4 DegF 98 D egF DegF] (02/20/20 12:00 AM) (02/19/20 8:00 PM) (02/16/20 4: 00 PM) Blood Pressure [90-140/60-90 110/52 mmHg 105/54 mmHg 129 /60 mmHg mmHg] (02/20/20 12:00 AM) (02/19/20 10:00 PM) (02/19/20 8 :00 PM) Respiratory Rate [14-20 24 BRMIN 21 BRMIN 20 BRMIN BRMIN] *HI* *HI* (02/20/20 12:00 A M) (02/20/20 2:00 AM) (02/20/20 1:00 AM) Peripheral Pulse Rate 60 bpm 73 bpm 66 bpm [60-100 bpm] (02/16/20 7:21 AM) (02/16/20 4:32 AM) (02/16/20 12: 09 AM) Weight 84.545 kg (02/15/20 5:43 PM) Body Mass Index 37.65 m2 (02/15/20 5:43 PM) Problem List Condition Effective Dates Status [...] hyperglycemia(Confirmed) Diabetes type 2, Active uncontrolled(Confirmed) 1right [id number] Allergies, Adverse Reactions, Alerts Substance Reaction Severity Status penicillins1 rash Active ciprofloxacin Active erythromycin2 Active phenobarbital rash Active gabapentin3 Active aspirin4 severe chest pain Active immune globulin intravenous5 Act kimberly cefepime Active Cortizone-10 Active Adhesive Tape6 Active PHENobarbital7 Active 1Data migrated from [employer] on 01/22/15. Originally documented as PCN.2Data migrated from [employer] on 01/22/15. Originally documented as ERYTHROMYCIN.3 [email or web address] migrated from [employer] on 01/22/15. Originally documented as ASPIRIN.5Husband called hospital on 12/06/19 and stated that the pt was allergic to [id number] migrated from [employer] on 08/01/15. Originally documented as ADHESIVE TAPE.7Data migrated from [employer] on 01/22/15. Originally documented as PHENOBARBITAL. Medications albumin human 5% intravenous solution 150 gm, 3,000 mL, 3000 ml/hr, Route: IV, Drug Form: INJ, Dosing Weight 84.545, kg, ONCE, Start date:02/19/20 9:39:00 CDT, Stop date: 02/19/20 9:39:00 CDT, Indication: Plasmapheresis, 0 Notes: LOT#: Mfg: (Same as: Albuminar)"blood product derivative"WASTE: F/P - Red; E -Red MEDICATION WASTE Product Size: 25 gmProduct Wasted: _0__ gm Start Date: 02/19/20 Stop Date: 02/19/20 Status: Discontinuedalbumin human 5% intravenous solution 125 gm, 2,500 mL, 2500 ml/hr, Route: IV, Drug Form: INJ, Dosing Weight 84.545, kg, ONCE, Start date:02/19/20 12:05:00 CDT, Stop date: 02/19/20 12:05:00 CDT, Indication: Plasmapheresis, 0 Notes: LOT#: Mfg: (Same as: Albuminar)"blood product derivative"WASTE: F/P - Red; E -Red MEDICATION WASTE Product Size: 25 gmProduct Wasted: _0__ gm Start Date: 02/19/20 Stop Date: 02/19/20 Status: Completedalbumin human 5% intravenous solution 150 gm, 3,000 mL, 0 ml/hr, Route: MISC, Drug Form: INJ, Dosing Weight 84.545, kg, ONCE, Start date: 02/17/20 16:47:00 CDT, Stop date: 02/17/20 16:47:00 CDT, Indication: Plasmapheresis, 0 Notes: LOT#: Mfg: (Same as: Albuminar)"blood product derivative"WASTE: F/P - Red; E -Red MEDICATION WASTE Product Size: 25 gmProduct Wasted: ___ gm Start Date: 02/17/20 Stop Date: 02/17/20 Status: CompletedamLODIPine 5 mg, 1 tab, Route: PO, Drug form: TAB, Daily, Dosing Weight 84.545, kg, Priority: NOW, Start date: 02/15/20 19:46:00 CDT, Duration: 30 day, Stop date: 03/16/20 9:00:00 CDT, 0 Notes: (Same as: Nortiburcioc) Start Date: 02/15/20 Stop Date: 02/16/20 Status: Discontinuedcalcium gluconate 3 gm, 30 mL, Route: IV, Drug form: INJ, Continuous, Dosing Weight 84.545, kg, Start date: 02/19/20 10:00:00 CDT, Duration: 1 doses or times, 0 Notes: WASTE: F/P - Sink; E - Municipal Trash Bin Start Date: 02/19/20 Stop Date: 02/19/20 Status: Completedcalcium gluconate 3 gm, 30 mL, Route: MISC, Drug form: INJ, Continuous, Dosing Weight 84.545, kg, Start date: 02/16/2017:00:00 CDT, Duration: 1 doses or times, 0 Notes: WASTE: F/P - Sink; E - Municipal Trash Bin Start Date: 02/17/20 Stop Date: 02/17/20 Status: CompletedclonazePAM 0.5 mg, 1 tab, Route: PO, Drug form: TAB, BID, Dosing Weight 84.545, kg, PRN Anxiety, Start date: 02/16/20 12:29:00 CDT, Duration: 30 day, Stop date: 03/17/20 12:28:00 CDT, 0 Notes: (Same As: KlonoPIN) Hazardous Drug Group 3:Reproductive risk Hazardous Drug -- Refer to safehandling procedure PPE Matrix Start Date: 02/16/20 Stop Date: 03/17/20 Status: OrderedclonazePAM 0.25 mg, 2 tab, Route: PO, Drug form: TABDIS, Q8H, Dosing Weight 84.545, kg, Start date: 02/17/20 12:27:00 CDT, Duration: 30 day, Stop date: 03/18/20 8:00:00 CDT, 0 Notes: (Same as KlonoPIN ODT) Hazardous Drug Group 3:Reproductive risk Hazardous Drug -- Refer to safe handling procedure PPE Matrix Start Date: 02/17/20 Stop Date: 02/17/20 Status: DiscontinuedclonazePAM 0.25 mg, 2 tab, Route: PO, Drug form: TABDIS, Q8H, Dosing Weight 84.545, kg, Start date: 02/17/20 13:45:00 CDT, Duration: 30 day, Stop date: 03/18/20 8:00:00 CDT, 0 Notes: (Same as KlonoPIN ODT) Hazardous Drug Group 3:Reproductive risk Hazardous Drug -- Refer to safe handling procedure PPE Matrix Start Date: 02/17/20 Stop Date: 03/18/20 Status: OrderedDextrose 5% in Water IV 1,000 mL 1,000 mL, Rate: 50 ml/hr, Infuse over: 20 hr, Route: IV, Dosing Weight 84.545 kg, Total Volume: 1,000, Start date: 02/16/20 13:53:00 CDT, Duration: 30 day, Stop date: 03/17/20 13:52:00 CDT, 1.91, m2, 0 Start Date: 02/16/20 Stop Date: 02/18/20 Status: DiscontinuedDextrose 50% Syringe (D50W) 12.5 gm, 25 mL, Route: IVP, Drug Form: INJ, Dosing Weight 84.545, kg, PRN, PRN Blood Glucose Results, Start date: 02/18/20 16:05:00 CDT, Duration: 30 day, Stop date: 03/19/20 16:04:00 CDT, 0 Start Date: 02/18/20 Stop Date: 03/19/20 Status: OrderedDextrose 50% Syringe (D50W) 25 gm, 50 mL, Route: IVP, Drug Form: INJ, Dosing Weight 84.545, kg, PRN, PRN Blood Glucose Results, Start date: 02/18/20 16:05:00 CDT, Duration: 30 day, Stop date: 03/19/20 16:04:00 CDT, 0 Start Date: 02/18/20 Stop Date: 03/19/20 Status: OrderedDextrose 50% Syringe (D50W) 25 mL, Route: IVP, Dosing Weight 84.545, kg, PRN, PRN Blood Glucose Results, Start date: 02/18/20 6:26:00 CDT, Duration: 30 day, Stop date: 03/19/20 6:25:00 CDT Start Date: 02/18/20 Stop Date: 02/18/20 Status: DiscontinuedDextrose 50% Syringe (D50W) 50 mL, Route: IVP, Dosing Weight 84.545, kg, PRN, PRN Blood Glucose Results, Start date: 02/18/20 6:26:00 CDT, Duration: 30 day, Stop date: 03/19/20 6:25:00 CDT Start Date: 02/18/20 Stop Date: 02/18/20 Status: DiscontinuedDextrose 50% Syringe (D50W) 25 mL, Route: IVP, Dosing Weight 84.545, kg, PRN, PRN Blood Glucose Results, Start date: 02/17/20 0:58:00 CDT, Duration: 30 day, Stop date: 03/18/20 0:57:00 CDT Start Date: 02/17/20 Stop Date: 02/17/20 Status: DiscontinuedDextrose 50% Syringe (D50W) 50 mL, Route: IVP, Dosing Weight 84.545, kg, PRN, PRN Blood Glucose Results, Start date: 02/17/20 0:58:00 CDT, Duration: 30 day, Stop date: 03/18/20 0:57:00 CDT Start Date: 02/17/20 Stop Date: 02/17/20 Status: DiscontinuedDextrose 50% Syringe (D50W) 12.5 gm, 25 mL, Route: IVP, Drug Form: INJ, Dosing Weight 84.545, kg, PRN, PRN Blood Glucose Results, Start date: 02/17/20 0:59:00 CDT, Duration: 30 day, Stop date: 03/18/20 0:58:00 CDT, 0 Start Date: 02/17/20 Stop Date: 02/18/20 Status: DiscontinuedDextrose 50% Syringe (D50W) 25 gm, 50 mL, Route: IVP, Drug Form: INJ, Dosing Weight 84.545, kg, PRN, PRN Blood Glucose Results, Start date: 02/17/20 0:59:00 CDT, Duration: 30 day, Stop date: 03/18/20 0:58:00 CDT, 0 Start Date: 02/17/20 Stop Date: 02/18/20 Status: DiscontinuedDextrose 50% Syringe (D50W) 12.5 gm, 25 mL, Route: IVP, Drug Form: INJ, Dosing Weight 84.545, kg, PRN, PRN Blood Glucose Results, Start date: 02/15/20 19:49:00 CDT, Duration: 30 day, Stop date: 03/16/20 19:48:00 CDT, 0 Start Date: 02/15/20 Stop Date: 02/16/20 Status: DiscontinuedDextrose 50% Syringe (D50W) 25 gm, 50 mL, Route: IVP, Drug Form: INJ, Dosing Weight 84.545, kg, PRN, PRN Blood Glucose Results, Start date: 02/15/20 19:49:00 CDT, Duration: 30 day, Stop date: 03/16/20 19:48:00 CDT, 0 Start Date: 02/15/20 Stop Date: 02/16/20 Status: DiscontinueddiphenhydrAMINE 50 mg, Route: IVP, ONCE, Dosing Weight 84.545, kg, Start date: 02/19/20 12:00:00 CDT, Stop date: 02/19/20 12:00:00 CDT Start Date: 02/19/20 Stop Date: 02/19/20 Status: Discontinueddocusate-senna 50 mg-8.6 mg oral tablet 1 tab, Route: PO, Drug Form: TAB, Dosing Weight 84.545, kg, Daily, Start date: 02/16/20 9:00:00 CDT,Duration: 30 day, Stop date: 03/16/20 9:00:00 CDT, 0 Notes: (Same as Darwin-S) Equiv. to Cassidy-Colace. Start Date: 02/16/20 Stop Date: 02/16/20 Status: Discontinuedfurosemide 20 mg oral tablet 20 mg, 1 tab, Route: GT, Drug form: TAB, Daily, Dosing Weight 84.545, kg, Start date: 02/17/20 9:00:00 CDT, Duration: 30 day, Stop date: 03/17/20 9:00:00 CDT, 0 Notes: (Same as: Lasix) May cause GI upset. Give with food or milk. Start Date: 02/17/20 Stop Date: 03/17/20 Status: Orderedfurosemide 20 mg oral tablet 20 mg, 1 tab, Route: PO, Drug form: TAB, Daily, Dosing Weight 84.545, kg, Start date: 02/16/20 9:00:00 CDT, Duration: 30 day, Stop date: 03/16/20 9:00:00 CDT, 0 Notes: (Same as: Lasix) May cause GI upset. Give with food or milk. Start Date: 02/16/20 Stop Date: 02/16/20 Status: Discontinuedglucagon 1 mg, Route: IM, Drug form: PDR/INJ, PRN, Dosing Weight 84.545, kg, PRN Blood Glucose Results, Startdate: 02/18/20 16:05:00 CDT, Duration: 30 day, Stop date: 03/19/20 16:04:00 CDT, 0 Start Date: 02/18/20 Stop Date: 03/19/20 Status: Orderedglucagon 1 mg, Route: IM, PRN, Dosing Weight 84.545, kg, PRN Blood Glucose Results, Start date: 02/18/20 6:26:00 CDT, Duration: 30 day, Stop date: 03/19/20 6:25:00 CDT Start Date: 02/18/20 Stop Date: 02/18/20 Status: Discontinuedglucagon 1 mg, Route: IM, PRN, Dosing Weight 84.545, kg, PRN Blood Glucose Results, Start date: 02/17/20 0:58:00 CDT, Duration: 30 day, Stop date: 03/18/20 0:57:00 CDT Start Date: 02/17/20 Stop Date: 02/17/20 Status: Discontinuedglucagon 1 mg, Route: IM, Drug form: PDR/INJ, PRN, Dosing Weight 84.545, kg, PRN Blood Glucose Results, Startdate: 02/17/20 0:59:00 CDT, Duration: 30 day, Stop date: 03/18/20 0:58:00 CDT, 0 Start Date: 02/17/20 Stop Date: 02/18/20 Status: Discontinuedglucagon 1 mg, Route: IM, Drug form: PDR/INJ, PRN, Dosing Weight 84.545, kg, PRN Blood Glucose Results, Startdate: 02/15/20 19:49:00 CDT, Duration: 30 day, Stop date: 03/16/20 19:48:00 CDT, 0 Start Date: 02/15/20 Stop Date: 02/16/20 Status: Discontinuedheparin 5000 units/mL injectable solution 5,000 unit, 1 mL, Route: SUB-Q, Drug form: INJ, Q8H, Dosing Weight 84.545, kg, Start date: 02/16/20 0:00:00 CDT, Duration: 30 day, Stop date: 03/16/20 16:00:00 CDT, 0 Notes: porcine heparin Start Date: 02/16/20 Stop Date: 03/16/20 Status: Orderedinsulin detemir 15 unit, Route: SUB-Q, BID, Dosing Weight 84.545, kg, Start date: 02/18/20 16:06:00 CDT, Duration: 30 day, Stop date: 03/19/20 9:00:00 CDT Start Date: 02/18/20 Stop Date: 02/18/20 Status: Deletedinsulin glargine 15 unit, 0.15 mL, Route: SUB-Q, Drug form: SOLN, BID, Start date: 02/18/20 17:00:00 CDT, Duration: 30 day, Stop date: 03/19/20 9:00:00 CDT, 0 Notes: (Same as: Akash)Do not hold insulin without contacting prescriberWASTE: F/P - Black; E - [employer] Trash Bin"single patient use only"Stable for 28 days at room temperature Expires in days from Date Start Date: 02/18/20 Stop Date: 03/19/20 Status: Orderedinsulin lispro 2 unit, Route: SUB-Q, Sliding Scale, Dosing Weight 84.545, kg, PRN Blood Glucose Results, Start date: 02/17/20 0:58:00 CDT, Duration: 30 day, Stop date: 03/18/20 0:57:00 CDT Start Date: 02/17/20 Stop Date: 02/17/20 Status: Discontinuedinsulin lispro 4 unit, Route: SUB-Q, Sliding Scale, Dosing Weight 84.545, kg, PRN Blood Glucose Results, Start date: 02/17/20 0:58:00 CDT, Duration: 30 day, Stop date: 03/18/20 0:57:00 CDT Start Date: 02/17/20 Stop Date: 02/17/20 Status: Discontinuedinsulin lispro 6 unit, Route: SUB-Q, Sliding Scale, Dosing Weight 84.545, kg, PRN Blood Glucose Results, Start date: 02/17/20 0:58:00 CDT, Duration: 30 day, Stop date: 03/18/20 0:57:00 CDT Start Date: 02/17/20 Stop Date: 02/17/20 Status: Discontinuedinsulin lispro 8 unit, Route: SUB-Q, Sliding Scale, Dosing Weight 84.545, kg, PRN Blood Glucose Results, Start date: 02/17/20 0:58:00 CDT, Duration: 30 day, Stop date: 03/18/20 0:57:00 CDT Start Date: 02/17/20 Stop Date: 02/17/20 Status: Discontinuedinsulin lispro 10 unit, Route: SUB-Q, Sliding Scale, Dosing Weight 84.545, kg, PRN Blood Glucose Results, Start date: 02/17/20 0:58:00 CDT, Duration: 30 day, Stop date: 03/18/20 0:57:00 CDT Start Date: 02/17/20 Stop Date: 02/17/20 Status: Discontinuedinsulin lispro 1 unit, 0.01 mL, Route: SUB-Q, Drug form: SOLN, Sliding Scale, Dosing Weight 84.545, kg, PRN Blood Glucose Results, Start date: 02/17/20 0:59:00 CDT, Duration: 30 day, Stop date: 03/18/20 0:58:00 CDT, 0 Notes: (Same as: Humalog) Roll in palms of hands gently; Do not shake vigorously. WASTE: F/P - Black; E - Municipal Trash BinStable for 28 days at room temperature.Expires in days from Date Start Date: 02/17/20 Stop Date: 02/18/20 Status: Discontinuedinsulin lispro 2 unit, 0.02 mL, Route: SUB-Q, Drug form: SOLN, Sliding Scale, Dosing Weight 84.545, kg, PRN Blood Glucose Results, Start date: 02/17/20 0:59:00 CDT, Duration: 30 day, Stop date: 03/18/20 0:58:00 CDT, 0 Notes: (Same as: Humalog) Roll in palms of hands gently; Do not shake vigorously. WASTE: F/P - Black; E - Municipal Trash BinStable for 28 days at room temperature.Expires in days from Date Start Date: 02/17/20 Stop Date: 02/18/20 Status: Discontinuedinsulin lispro 3 unit, 0.03 mL, Route: SUB-Q, Drug form: SOLN, Sliding Scale, Dosing Weight 84.545, kg, PRN Blood Glucose Results, Start date: 02/17/20 0:59:00 CDT, Duration: 30 day, Stop date: 03/18/20 0:58:00 CDT, 0 Notes: (Same as: Humalog) Roll in palms of hands gently; Do not shake vigorously. WASTE: F/P - Black; E - Municipal Trash BinStable for 28 days at room temperature.Expires in days from Date Start Date: 02/17/20 Stop Date: 02/18/20 Status: Discontinuedinsulin lispro 4 unit, 0.04 mL, Route: SUB-Q, Drug form: SOLN, Sliding Scale, Dosing Weight 84.545, kg, PRN Blood Glucose Results, Start date: 02/17/20 0:59:00 CDT, Duration: 30 day, Stop date: 03/18/20 0:58:00 CDT, 0 Notes: (Same as: Humalog) Roll in palms of hands gently; Do not shake vigorously. WASTE: F/P - Black; E - Municipal Trash BinStable for 28 days at room temperature.Expires in days from Date Start Date: 02/17/20 Stop Date: 02/18/20 Status: Discontinuedinsulin lispro 5 unit, 0.05 mL, Route: SUB-Q, Drug form: SOLN, Sliding Scale, Dosing Weight 84.545, kg, PRN Blood Glucose Results, Start date: 02/17/20 0:59:00 CDT, Duration: 30 day, Stop date: 03/18/20 0:58:00 CDT, 0 Notes: (Same as: Humalog) Roll in palms of hands gently; Do not shake vigorously. WASTE: F/P - Black; E - Municipal Trash BinStable for 28 days at room temperature.Expires in days from Date Start Date: 02/17/20 Stop Date: 02/18/20 Status: Discontinuedinsulin lispro 3 unit, 0.03 mL, Route: SUB-Q, Drug form: SOLN, Sliding Scale, Dosing Weight 84.545, kg, PRN Blood Glucose Results, Start date: 02/15/20 19:49:00 CDT, Duration: 30 day, Stop date: 03/16/20 19:48:00 CDT, 0 Notes: (Same as: Humalog) Roll in palms of hands gently; Do not shake vigorously. WASTE: F/P - Black; E - Municipal Trash BinStable for 28 days at room temperature.Expires in days from Date Start Date: 02/15/20 Stop Date: 02/16/20 Status: Discontinuedinsulin lispro 6 unit, 0.06 mL, Route: SUB-Q, Drug form: SOLN, Sliding Scale, Dosing Weight 84.545, kg, PRN Blood Glucose Results, Start date: 02/15/20 19:49:00 CDT, Duration: 30 day, Stop date: 03/16/20 19:48:00 CDT, 0 Notes: (Same as: Humalog) Roll in palms of hands gently; Do not shake vigorously. WASTE: F/P - Black; E - Municipal Trash BinStable for 28 days at room temperature.Expires in days from Date Start Date: 02/15/20 Stop Date: 02/16/20 Status: Discontinuedinsulin lispro 9 unit, 0.09 mL, Route: SUB-Q, Drug form: SOLN, Sliding Scale, Dosing Weight 84.545, kg, PRN Blood Glucose Results, Start date: 02/15/20 19:49:00 CDT, Duration: 30 day, Stop date: 03/16/20 19:48:00 CDT, 0 Notes: (Same as: Humalog) Roll in palms of hands gently; Do not shake vigorously. WASTE: F/P - Black; E - Municipal Trash BinStable for 28 days at room temperature.Expires in days from Date Start Date: 02/15/20 Stop Date: 02/16/20 Status: Discontinuedinsulin lispro 12 unit, 0.12 mL, Route: SUB-Q, Drug form: SOLN, Sliding Scale, Dosing Weight 84.545, kg, PRN Blood Glucose Results, Start date: 02/15/20 19:49:00 CDT, Duration: 30 day, Stop date: 03/16/20 19:48:00 CDT, 0 Notes: (Same as: Humalog) Roll in palms of hands gently; Do not shake vigorously. WASTE: F/P - Black; E - Municipal Trash BinStable for 28 days at room temperature.Expires in days from Date Start Date: 02/15/20 Stop Date: 02/16/20 Status: Discontinuedinsulin lispro 15 unit, 0.15 mL, Route: SUB-Q, Drug form: SOLN, Sliding Scale, Dosing Weight 84.545, kg, PRN Blood Glucose Results, Start date: 02/15/20 19:49:00 CDT, Duration: 30 day, Stop date: 03/16/20 19:48:00 CDT, 0 Notes: (Same as: Humalog) Roll in palms of hands gently; Do not shake vigorously. WASTE: F/P - Black; E - Municipal Trash BinStable for 28 days at room temperature.Expires in days from Date Start Date: 02/15/20 Stop Date: 02/16/20 Status: DiscontinuedInsulin regular 3 unit, 0.03 mL, Route: SUB-Q, Drug form: SOLN, TID-Before Meals, Dosing Weight 84.545, kg, PRN Blood Glucose Results, Start date: 02/18/20 16:05:00 CDT, Duration: 30 day, Stop date: 03/19/20 16:04:00 CDT, 0 Notes: (Same as: Humulin R) Roll in palms of hands gently; Do not shake vigorously. WASTE:F/P - Black; E - Municipal Trash BinStable for 31 days at room temperature Expires in days from Date Start Date: 02/18/20 Stop Date: 03/19/20 Status: OrderedInsulin regular 6 unit, 0.06 mL, Route: SUB-Q, Drug form: SOLN, TID-Before Meals, Dosing Weight 84.545, kg, PRN Blood Glucose Results, Start date: 02/18/20 16:05:00 CDT, Duration: 30 day, Stop date: 03/19/20 16:04:00 CDT, 0 Notes: (Same as: Humulin R) Roll in palms of hands gently; Do not shake vigorously. WASTE:F/P - Black; E - Municipal Trash BinStable for 31 days at room temperature Expires in days from Date Start Date: 02/18/20 Stop Date: 03/19/20 Status: OrderedInsulin regular 9 unit, 0.09 mL, Route: SUB-Q, Drug form: SOLN, TID-Before Meals, Dosing Weight 84.545, kg, PRN Blood Glucose Results, Start date: 02/18/20 16:05:00 CDT, Duration: 30 day, Stop date: 03/19/20 16:04:00 CDT, 0 Notes: (Same as: Humulin R) Roll in palms of hands gently; Do not shake vigorously. WASTE:F/P - Black; E - Municipal Trash BinStable for 31 days at room temperature Expires in days from Date Start Date: 02/18/20 Stop Date: 03/19/20 Status: OrderedInsulin regular 12 unit, 0.12 mL, Route: SUB-Q, Drug form: SOLN, TID-Before Meals, Dosing Weight 84.545, kg, PRN Blood Glucose Results, Start date: 02/18/20 16:05:00 CDT, Duration: 30 day, Stop date: 03/19/20 16:04:00CDT, 0 Notes: (Same as: Humulin R) Roll in palms of hands gently; Do not shake vigorously. WASTE:F/P - Black; E - Municipal Trash BinStable for 31 days at room temperature Expires in days from Date Start Date: 02/18/20 Stop Date: 03/19/20 Status: OrderedInsulin regular 15 unit, 0.15 mL, Route: SUB-Q, Drug form: SOLN, TID-Before Meals, Dosing Weight 84.545, kg, PRN Blood Glucose Results, Start date: 02/18/20 16:05:00 CDT, Duration: 30 day, Stop date: 03/19/20 16:04:00CDT, 0 Notes: (Same as: Humulin R) Roll in palms of hands gently; Do not shake vigorously. WASTE:F/P - Black; E - Municipal Trash BinStable for 31 days at room temperature Expires in days from Date Start Date: 02/18/20 Stop Date: 03/19/20 Status: OrderedInsulin regular 10 unit, 0.1 mL, Route: SUB-Q, Drug form: SOLN, ONCE, Dosing Weight 84.545, kg, Start date: 02/18/2020:08:00 CDT, Stop date: 02/18/20 20:08:00 CDT, 0 Notes: (Same as: Humulin R) Roll in palms of hands gently; Do not shake vigorously. WASTE:F/P - Black; E - Municipal Trash BinStable for 31 days at room temperature Expires in days from Date Start Date: 02/18/20 Stop Date: 02/19/20 Status: CompletedInsulin regular 1 unit, Route: SUB-Q, TID-Before Meals, Dosing Weight 84.545, kg, PRN Blood Glucose Results, Start date: 02/18/20 6:26:00 CDT, Duration: 30 day, Stop date: 03/19/20 6:25:00 CDT Start Date: 02/18/20 Stop Date: 02/18/20 Status: DiscontinuedInsulin regular 2 unit, Route: SUB-Q, TID-Before Meals, Dosing Weight 84.545, kg, PRN Blood Glucose Results, Start date: 02/18/20 6:26:00 CDT, Duration: 30 day, Stop date: 03/19/20 6:25:00 CDT Start Date: 02/18/20 Stop Date: 02/18/20 Status: DiscontinuedInsulin regular 3 unit, Route: SUB-Q, TID-Before Meals, Dosing Weight 84.545, kg, PRN Blood Glucose Results, Start date: 02/18/20 6:26:00 CDT, Duration: 30 day, Stop date: 03/19/20 6:25:00 CDT Start Date: 02/18/20 Stop Date: 02/18/20 Status: DiscontinuedInsulin regular 4 unit, Route: SUB-Q, TID-Before Meals, Dosing Weight 84.545, kg, PRN Blood Glucose Results, Start date: 02/18/20 6:26:00 CDT, Duration: 30 day, Stop date: 03/19/20 6:25:00 CDT Start Date: 02/18/20 Stop Date: 02/18/20 Status: DiscontinuedInsulin regular 5 unit, Route: SUB-Q, TID-Before Meals, Dosing Weight 84.545, kg, PRN Blood Glucose Results, Start date: 02/18/20 6:26:00 CDT, Duration: 30 day, Stop date: 03/19/20 6:25:00 CDT Start Date: 02/18/20 Stop Date: 02/18/20 Status: DiscontinuedLevemir FlexTouch 100 units/mL subcutaneous solution 30 unit, SUB-Q, BID, 0 Refill(s) Start Date: 02/16/20 Status: Suspendedlevothyroxine 88 microgram, 1 tab, Route: GT, Drug form: TAB, Q630AM, Dosing Weight 84.545, kg, Start date: 02/17/20 6:30:00 CDT, Duration: 30 day, Stop date: 03/17/20 6:30:00 CDT, 0 Notes: Take 1 hour before or 2 hours after meal; Enteral feeds may interefere with the absorption ofthis medication. (Same as:Synthroid) Start Date: 02/17/20 Stop Date: 02/16/20 Status: Canceledlevothyroxine 88 microgram, 1 tab, Route: PO, Drug form: TAB, Q630AM, Dosing Weight 84.545, kg, Start date: 02/17/20 6:30:00 CDT, Duration: 30 day, Stop date: 03/17/20 6:30:00 CDT, 0 Notes: Take 1 hour before or 2 hours after meal; Enteral feeds may interefere with the absorption ofthis medication. (Same as:Synthroid) Start Date: 02/17/20 Stop Date: 03/17/20 Status: Orderedlevothyroxine 88 microgram, 1 tab, Route: PO, Drug form: TAB, Q630AM, Dosing Weight 84.545, kg, Start date: 02/16/20 6:30:00 CDT, Duration: 30 day, Stop date: 03/16/20 6:30:00 CDT, 0 Notes: Take 1 hour before or 2 hours after meal; Enteral feeds may interefere with the absorption ofthis medication. (Same as:Synthroid) Start Date: 02/16/20 Stop Date: 02/16/20 Status: Discontinuedlidocaine topical patch (5% film) 1 patch, Route: TOP, Daily, Drug form: FILM, Start date: 02/19/20 9:00:00 CDT, Duration: 30 day, Stop date: 03/19/20 9:00:00 CDT, 0 Start Date: 02/19/20 Stop Date: 03/19/20 Status: Orderedlisinopril 5 mg, 1 tab, Route: GT, Drug form: TAB, Daily, Dosing Weight 84.545, kg, Start date: 02/17/20 9:00:00 CDT, Duration: 30 day, Stop date: 03/16/20 9:00:00 CDT, 0 Notes: (Same as: Prinivil, Zestril) Start Date: 02/17/20 Stop Date: 03/16/20 Status: Orderedlisinopril 5 mg, 1 tab, Route: PO, Drug form: TAB, Daily, Dosing Weight 84.545, kg, Start date: 02/16/20 9:00:00 CDT, Duration: 30 day, Stop date: 03/16/20 9:00:00 CDT, 0 Notes: (Same as: Prinivil, Zestril) Start Date: 02/16/20 Stop Date: 02/16/20 Status: DiscontinuedMestinon 60 mg, 1 tab, Route: GT, Drug form: TAB, Q8H, Start date: 02/17/20 16:00:00 CDT, Duration: 30 day, Stop date: 03/18/20 8:00:00 CDT, 0 Notes: (Same as: Mestinon) Start Date: 02/17/20 Stop Date: 02/19/20 Status: DiscontinuedMestinon 60 mg oral tablet 60 mg = 1 tab, PO, TID, 0 Refill(s) Start Date: 02/16/20 Status: SuspendedNovoLOG FlexPen 100 units/mL injectable solution See Instructions, 10 unit SUB-Q TID-Before Meals and at bedtime, 0 Refill(s) Start Date: 02/16/20 Status: Suspendedpotassium chloride 20 mEq oral tablet, extended release (KCL) 40 mEq, 2 tab, Route: PO, Drug form: ERTAB, ONCE, Dosing Weight 84.545, kg, Start date: 02/18/20 5:45:00 CDT, Stop date: 02/18/20 5:45:00 CDT, 0 Notes: (Same as: K-Dur 20)"Do Not Crush" Give with food and full glass of waterFor patients unable to swallow tablet, dissolve in one half glass of water. Allow about 2 minutes for the tablets to disintegrate. Stir before giving to prepare slurry and administer.Please exclude Patients with feedingtube less than 14 Mal[place] (Dobhoff, J-tube etc) and pediatric and patients. Start Date: 02/18/20 Stop Date: 02/18/20 Status: CompletedpredniSONE 20 mg, 1 tab, Route: PO, Drug form: TAB, Daily, Dosing Weight 84.545, kg, Start date: 02/17/20 9:00:00 CDT, Duration: 30 day, Stop date: 03/17/20 9:00:00 CDT, 0 Notes: Take with food. Start Date: 02/17/20 Stop Date: 02/16/20 Status: CanceledpredniSONE 20 mg, 1 tab, Route: PO, Drug form: TAB, Daily, Dosing Weight 84.545, kg, Priority: NOW, Start date:02/16/20 14:12:00 CDT, Duration: 30 day, Stop date: 03/17/20 9:00:00 CDT, 0 Notes: Take with food. Start Date: 02/16/20 Stop Date: 03/17/20 Status: Orderedpyridostigmine 60 mg, 1 tab, Route: GT, Drug form: TAB, Q8H, Dosing Weight 84.545, kg, Start date: 02/16/20 16:00:00 CDT, Duration: 30 day, Stop date: 03/17/20 8:00:00 CDT, 0 Notes: (Same as: Mestinon) Start Date: 02/16/20 Stop Date: 02/17/20 Status: Discontinuedpyridostigmine 90 mg, Route: GT, Drug form: TAB, Q8H, Dosing Weight 84.545, kg, Start date: 02/17/20 16:00:00 CDT, Duration: 30 day, Stop date: 03/18/20 8:00:00 CDT, 0 Start Date: 02/17/20 Stop Date: 02/17/20 Status: Deletedpyridostigmine 30 mg, 0.5 tab, Route: GT, Drug form: TAB, Q8H, Start date: 02/17/20 16:00:00 CDT, Duration: 30 day,Stop date: 03/18/20 8:00:00 CDT, 0 Notes: (Same as: Mestinon)30 mg = 1/2 x 60 mg TAB Start Date: 02/17/20 Stop Date: 02/19/20 Status: Discontinuedpyridostigmine 60 mg, 1 tab, Route: PO, Drug form: TAB, BID, Dosing Weight 84.545, kg, Start date: 02/16/20 9:00:00CDT, Duration: 30 day, Stop date: 03/16/20 17:00:00 CDT, 0 Notes: (Same as: Mestinon) Start Date: 02/16/20 Stop Date: 02/16/20 Status: Discontinuedremove patch 1 patch, Route: TOP, Bedtime, Drug form: ERFILM, Start date: 02/19/20 21:00:00 CDT, Duration: 30 day, Stop date: 03/19/20 21:00:00 CDT, 0 Start Date: 02/19/20 Stop Date: 03/19/20 Status: Orderedrosuvastatin 20 mg, 2 tab, Route: PO, Drug form: TAB, Bedtime, Dosing Weight 84.545, kg, Start date: 02/15/20 21:00:00 CDT, Duration: 30 day, Stop date: 03/15/20 21:00:00 CDT, 0 Notes: (Same As: Crestor) Start Date: 02/15/20 Stop Date: 02/16/20 Status: Discontinuedrosuvastatin 10 mg, 1 tab, Route: PO, Drug form: TAB, Bedtime, Dosing Weight 84.545, kg, Start date: 02/18/20 21:00:00 CDT, Duration: 30 day, Stop date: 03/18/20 21:00:00 CDT, 0 Notes: (Same As: Crestor) Start Date: 02/18/20 Stop Date: 03/18/20 Status: Orderedsertraline 25 mg, 1 tab, Route: GT, Drug form: TAB, Daily, Dosing Weight 84.545, kg, Start date: 02/17/20 9:00:00 CDT, Duration: 30 day, Stop date: 03/17/20 9:00:00 CDT, 0 Notes: (Same as: Zoloft) Start Date: 02/17/20 Stop Date: 03/17/20 Status: Orderedsertraline 25 mg, 1 tab, Route: PO, Drug form: TAB, Daily, Dosing Weight 84.545, kg, Start date: 02/16/20 9:00:00 CDT, Duration: 30 day, Stop date: 03/16/20 9:00:00 CDT, 0 Notes: (Same as: Zoloft) Start Date: 02/16/20 Stop Date: 02/16/20 Status: Discontinuedthiamine 200 mg, 2 tab, Route: PO, Drug form: TAB, Daily, Dosing Weight 84.545, kg, Start date: 02/17/20 9:00:00 CDT, Duration: 30 day, Stop date: 03/17/20 9:00:00 CDT, 0 Notes: (Same As: Vitamin B1) Start Date: 02/17/20 Stop Date: 03/17/20 Status: Orderedthiamine 100 mg oral tablet 200 mg = 2 tab, PO, Daily Start Date: 02/16/20 Status: SuspendedTylenol 650 mg, 2 tab, Route: PO, Drug form: TAB, Q8H, Dosing Weight 84.545, kg, PRN Pain Score 1-3, Start date: 02/17/20 17:08:00 CDT, Duration: 30 day, Stop date: 03/18/20 17:07:00 CDT, 0 Notes: Do not exceed 4 gm/day. (Same as: Tylenol) Start Date: 02/17/20 Stop Date: 03/18/20 Status: OrderedTylenol Extra Strength 500 mg oral tablet 1,000 mg = 2 tab, PO, TID, 0 Refill(s) Start Date: 02/16/20 Status: Suspended Results Most recent to oldest 1 2 3 [Reference Range]: Procalcitonin Lvl <0.05 ng/mL [0.00-0.10 ng/mL] (02/17/20 12:10 PM) Neutrophils # [1.5-8.1 11.5 K/CMM 10.8 K/CMM 13.6 K/CM M K/CMM] *HI* *HI* *HI* (02/19/20 9:22 AM) (02/18/20 4:08 AM) (02/17/20 12: 10 PM) Lymphocytes # [1.0-5.5 5.8 K/CMM 3.8 K/CMM 1.5 K/CMM K/CMM] *HI* (02/18/20 4:08 AM) (02/17/20 12:10 PM) (02/19/20 9:22 AM) Monocytes # [0.0-0.8 1.3 K/CMM 1.5 K/CMM 0.8 K/CMM K/CMM] *HI* *HI* (02/17/20 12:10 P M) (02/19/20 9:22 AM) (02/18/20 4:08 AM) Eosinophils # [0.0-0.5 0.1 K/CMM 0.1 K/CMM K/CMM] (02/19/20 9:22 AM) (02/18/20 4:08 AM) Basophils # [0.0-0.2 0.1 K/CMM 0.1 K/CMM 0.1 K/CMM K/CMM] (02/19/20 9:22 AM) (02/18/20 4:08 AM) (02/17/20 12: 10 PM) eGFR 87 mL/min/1.73m2 1 87 mL/min/1.73m2 2 87 mL/min/ 1.73m2 3 *NA* *NA* *NA* (02/19/20 9:22 AM) (02/18/20 4:08 AM) (02/17/20 12: 10 PM) ABO/Rh O POS O POS *Unknown* *Unknown* (02/19/20 9:31 AM) (02/17/20 12:10 PM) A/G Ratio [0.7-1.6] 0.7 (02/15/20 9:49 PM) Antibody Scrn Negative Positive (02/19/20 9:31 AM) (02/17/20 12:10 PM) Albumin Lvl [3.5-5.0 g/dL] 2.4 g/dL *LOW* (02/15/20 9:49 PM) Alk Phos [39-136 unit/L] 162 unit/L *HI* (02/15/20 9:49 PM) ALT [0-65 unit/L] 26 unit/L (02/15/20 9:49 PM) AGAP [10.0-20.0 mEq/L] 8.6 mEq/L 10.3 mEq/L 6.4 mEq/L *LOW* (02/18/20 4:08 AM) *LOW* (02/19/20 9:22 AM) (02/17/20 12:10 PM) AST [0-37 unit/L] 16 unit/L (02/15/20 9:49 PM) B/C Ratio [6-25] 25 (02/15/20 9:49 PM) Basophils [0.0-1.0 %] 0.7 % 0.5 % 0.5 % (02/19/20 9:22 AM) (02/18/20 4:08 AM) (02/17/20 12: 10 PM) BUN [7-22 mg/dL] 15 mg/dL 12 mg/dL 11 mg/dL (02/19/20 9:22 AM) (02/18/20 4:08 AM) (02/17/20 12: 10 PM) Calcium Lvl [8.5-10.5 8.4 mg/dL 8.7 mg/dL 8.4 mg/dL mg/dL] *LOW* (02/18/20 4:08 AM) *LOW* (02/19/20 9: AM) (02/17/20 12:10 PM) CHD Risk [3.90-5.80] 2.85 *LOW* (02/17/20 12:10 PM) Chol [<=199 mg/dL] 154 mg/dL (02/17/20 12:10 PM) Total CK [12-191 unit/L] 25 unit/L (02/17/20 12:10 PM) Chloride Lvl [95-109 110 mEq/L 106 mEq/L 101 mEq/L mEq/L] *HI* (02/18/20 4:08 AM) (02/17/20 12:10 PM) (02/19/20 9:22 AM) CO2 [24-32 mEq/L] 29 mEq/L 28 mEq/L 31 mEq/L (02/19/20 9:22 AM) (02/18/20 4:08 AM) (02/17/20 12: 10 PM) Creatinine Lvl [0.50-1.40 0.67 mg/dL 0.67 mg/dL 0.68 m g/dL mg/dL] (02/19/20 9:22 AM) (02/18/20 4:08 AM) (02/17/20 12: 10 PM) D-Dimer 0.96 ug/mL FEU 0.68 ug/mL FEU *NA* *NA* (02/19/20 9:22 AM) (02/18/20 4:08 AM) Eosinophils [0.0-4.0 %] 0.7 % 0.8 % 0.5 % (02/19/20 9:22 AM) (02/18/20 4:08 AM) (02/17/20 12: 10 PM) Fibrinogen Lvl [230-510 167 mg/dL 180 mg/dL 108 mg/d L mg/dL] *LOW* *LOW* *LOW* (02/19/20 9:22 AM) (02/19/20 9:22 AM) (02/18/20 4:0 8 AM) Globulin [2.7-4.2 g/dL] 3.4 g/dL (02/15/20 9:49 PM) Glucose Lvl [70-99 mg/dL] 102 mg/dL 210 mg/dL 215 mg /dL *HI* *HI* *HI* (02/19/20 9:22 AM) (02/18/20 4:08 AM) (02/17/20 12: 10 PM) Hct [36.0-48.0 %] 37.1 % 37.0 % 41.4 % (02/19/20 9:22 AM) (02/18/20 4:08 AM) (02/17/20 12: 10 PM) HDL [>=61 mg/dL] 54 mg/dL *LOW* (02/17/20 12:10 PM) Hgb [12.0-16.0 g/dL] 11.2 g/dL 11.4 g/dL 12.7 g/dL *LOW* *LOW* (02/17/20 12:10 P M) (02/19/20 9:22 AM) (02/18/20 4:08 AM) INR [0.85-1.17] 1.10 1.11 1.42 (02/19/20 9:22 AM) (02/19/20 9:22 AM) *HI* (02/18/20 4:08 AM ) Potassium Lvl [3.5-5.1 3.6 mEq/L 3.3 mEq/L 3.4 mEq/L mEq/L] (02/19/20 9:22 AM) *LOW* *LOW* (02/18/20 4:08 AM) (02/17/20 12:10 PM) Lactic Acid Lvl [0.5-2.2 1.6 mMol/L mMol/L] (02/17/20 12:10 PM) LDL (Calculated) [<=99 69 mg/dL mg/dL] (02/17/20 12:10 PM) Lymphocytes [20.0-40.0 %] 30.5 % 23.2 % 9.3 % (02/19/20 9:22 AM) (02/18/20 4:08 AM) *LOW* (02/17/20 12:10 P M) MCH [27.0-31.0 pg] 23.8 pg 24.1 pg 24.4 pg *LOW* *LOW* *LOW* (02/19/20 9:22 AM) (02/18/20 4:08 AM) (02/17/20 12: 10 PM) MCHC [32.0-36.0 g/dL] 30.1 g/dL 30.7 g/dL 30.8 g/dL *LOW* *LOW* *LOW* (02/19/20 9:22 AM) (02/18/20 4:08 AM) (02/17/20 12: 10 PM) MCV [80.0-98.0 fL] 79.1 fL 78.4 fL 79.1 fL *LOW* *LOW* *LOW* (02/19/20 9:22 AM) (02/18/20 4:08 AM) (02/17/20 12: 10 PM) Magnesium Lvl [1.8-2.4 1.8 mg/dL 1.6 mg/dL mg/dL] (02/19/20 9:22 AM) *LOW* (02/18/20 4:08 AM) Microcyte [None Seen] 1+ *ABN* (02/18/20 4:08 AM) Monocytes [2.0-12.0 %] 7.1 % 9.3 % 5.0 % (02/19/20 9:22 AM) (02/18/20 4:08 AM) (02/17/20 12: 10 PM) MPV [7.4-10.4 fL] 9.7 fL 9.7 fL 10.1 fL (02/19/20 9:22 AM) (02/18/20 4:08 AM) (02/17/20 12: 10 PM) Sodium Lvl [135-145 mEq/L] 144 mEq/L 141 mEq/L 135 m Eq/L (02/19/20 9:22 AM) (02/18/20 4:08 AM) (02/17/20 12: 10 PM) Phosphorus [2.5-4.5 mg/dL] 2.5 mg/dL 3.5 mg/dL 3.0 m g/dL (02/19/20 9:22 AM) (02/18/20 4:08 AM) (02/17/20 12: 10 PM) Platelet [133-450 K/CMM] 134 K/CMM 151 K/CMM 161 K/C MM (02/19/20 9:22 AM) (02/18/20 4:08 AM) (02/17/20 12: 10 PM) Segs [45.0-75.0 %] 61.0 % 66.2 % 84.7 % (02/19/20 9:22 AM) (02/18/20 4:08 AM) *HI* (02/17/20 12:10 P M) Total Protein [6.4-8.4 5.8 g/dL g/dL] *LOW* (02/15/20 9:49 PM) PT [12.0-14.7 seconds] 14.2 seconds 14.4 seconds 17.5 seco nds (02/19/20 9:22 AM) (02/19/20 9:22 AM) *HI* (02/18/20 4:08 AM ) PTT [22.9-35.8 seconds] 37.8 seconds 37.1 seconds 82.9 sec onds *HI* *HI* *HI* (02/19/20 9:22 AM) (02/19/20 9:22 AM) (02/18/20 4:0 8 AM) Coronavirus (COVID-19) BRANDON Not Detected [Not Detected] (02/17/20 12:25 PM) RBC [4.20-5.40 M/CMM] 4.69 M/CMM 4.72 M/CMM 5.23 M/CMM (02/19/20 9:22 AM) (02/18/20 4:08 AM) (02/17/20 12: 10 PM) RDW [11.5-14.5 %] 18.7 % 18.3 % 18.3 % *HI* *HI* *HI* (02/19/20 9:22 AM) (02/18/20 4:08 AM) (02/17/20 12: 10 PM) Bili Total [0.2-1.3 mg/dL] 0.3 mg/dL (02/15/20 9:49 PM) Trig [<=149 mg/dL] 156 mg/dL *HI* (02/17/20 12:10 PM) Thrombin Time [15.0-21.2 25.6 seconds >100 seconds seconds] *HI* (02/18/20 4:08 AM) (02/19/20 9:22 AM) UA Amorph Jagruti [None Seen Moderate /HPF /HPF] *ABN* (02/15/20 10:29 PM) UA Bacteria [None Seen Occasional /HPF /HPF] *NA* (02/15/20 10:29 PM) UA Bili [Negative] Negative *NA* (02/15/20 10:29 PM) UA Blood [Negative] Negative (02/15/20 10:29 PM) UA Color [Yellow] Yellow *NA* (02/15/20 10:29 PM) UA Glucose 150mg/dl *NA* (02/15/20 10:29 PM) UA Hyal Cast [0-2 /LPF] 3 /LPF *HI* (02/15/20 10:29 PM) UA Ketones [Negative Negative mg/dL mg/dL] *NA* (02/15/20 10:29 PM) UA Leuk Est [Negative] Negative (02/15/20 10:29 PM) UA Mucus [None Seen /LPF] Few /LPF *NA* (02/15/20 10:29 PM) UA Nitrite [Negative] Negative (02/15/20 10:29 PM) UA pH [5.0-8.0] 7.0 (02/15/20 10:29 PM) UA Protein [Negative Negative mg/dL mg/dL] (02/15/20 10:29 PM) UA RBC [0-2 /HPF] 1 /HPF (02/15/20 10:29 PM) UA Spec Grav [<=1.030] 1.015 (02/15/20 10:29 PM) UA Sq Epi [Few /LPF] Few /LPF *NA* (02/15/20 10:29 PM) UA Turbidity [Clear] Marked *ABN* (02/15/20 10:29 PM) UA Urobilinogen [0.1-1.0 <1.0 mg/dL mg/dL] (02/15/20 10:29 PM) UA WBC [0-5 /HPF] 1 /HPF (02/15/20 10:29 PM) WBC [3.7-10.4 K/CMM] 18.9 K/CMM 16.3 K/CMM 16.0 K/CMM *HI* *HI* *HI* (02/19/20 9:22 AM) (02/18/20 4:08 AM) (02/17/20 12: 10 PM) BB Note Result Note 4 (02/17/20 12:10 PM) Ca Ion WB [1.05-1.25 1.11 mMol/L 1.13 mMol/L mMol/L] (02/19/20 9:22 AM) (02/18/20 4:08 AM) Ca Norm WB [1.05-1.25 1.12 mMol/L 1.12 mMol/L mMol/L] (02/19/20 9:22 AM) (02/18/20 4:08 AM) VLDL 31 *NA* (02/17/20 12:10 PM) 1Result Comment: The eGFR is calculated using [...] be multiplied by the estimated BMI.4Result Comment: 02/17/2020 14:11 [id number] "Significant Findings of Positive Antibody Screen_ called to _Bryant Keen_ at _02/17/2020 14:11_ by _MG_. Read Back OK" Immunizations Not Given Vaccine Date Status Refusal [...] Smoking Cessation Counseling Yes entered on: 02/15/20 Assessment and Plan Extracted from: Title: General Neurology Progress Note Author: Marlen Parra MD Date: 02/19/20 Neurology Progress Note Subjective: Overnight, patient declined blood pressure measurement, insulin and AM labs. She had elevated blood glucose readings. She said she feels worse today because of pain in her right leg at [facility] on site. Later on rounds, was at bedside and he was updated about the plan. HPI: Mrs. Franci Lange is a 75 y/o patient w ith history of dementia, meningioma s/p resection 10 years ago with VPS, diabetes type 2, HTN, HLD, CAD, HFrEF 50%, hypothyroidism, JD, seropositive myasthenia gravis (anti-striated muscle antibodies) , and recent spinal surgery around 3 weeks who presented as a direct transfer from [facility] due to concerns of MG exacerbation. She initially presented one week ago to [facility] wit h hypoglicemia and was found to have PNA. She completed antibiotics (Cefuroxime and Clynda per external Rx) and was discharged 5 days ago with PT. Per , t he next day of her discharged she sudden ly developed trouble standing due to lower extremity weakness, hypophonia and dysarthria. She didn't have any respiratory problems. She was brought back to [facility] where she was evaluated by Neurol pat and didn't think that it was a MG exacerbation so patient's family requested transfer to [facility]. At [facility] patient had MBST which showed severe dysphagia. Cu rrently, patient has no dysarthria but c ontinuos with hypophonia. She denies any SOB. Due to her dementia she is a poor historian but denies any weakness. Hospital course: [facility]15[facility] day 06/05 02/17: no acute events overnight, NIF/FVC improving 02/18: Overnight elevated glucose readin gs started on glargine. Plex day 2 Review of Systems: GEN: no fever, chills, weight loss, fati ibrahima EYES: no blurred vision, double vision CARDIO: no chest pain, palpitations RESP: no shortness of breath, cough GI: no nausea, vomiting, diarrhea, abdom inal pain : no frequency, dysuria, hematuria NEURO: see HPI SKIN: no rashes, lesions MSK: Generalized muscle pain ENDO: no heat or cold intolerance HEME: no lymph node enlargement, easy br uising Allergies: Adhesive Tape, Cortizone-10 , PHENobarbi marcelle , Aspirin (severe chest pain), Cefepime , [...] (Last four charted values) WBC H 18.9 (FEB 18) H 1 6.3 (JAN 19) H 16.0 (SEP 18) H 16.8 (SEP 16) Hgb L 11.2 (JAN 20) L 1 1.4 (SEP 19) 12.7 (SEP 18) L 11.6 (SEP 16) Hct 37.1 (SEP 20) 37.0 (SEP 19) 41.4 (SEP 18) 38.6 (SEP 16) Plt 134 (SEP 20) 151 (S EP 19) 161 (SEP 18) 156 (SEP 16) Na 144 (SEP 20) 141 (S EP 19) 135 (SEP 18) 140 (SEP 16) K 3.6 (SEP 20) L 3.3 (SEP 19) L 3.4 (SEP 18) 4.1 (SEP 16) CO2 29 (SEP 20) 28 (SEP 19) 31 (SEP 18) 26 (SEP 16) Cl H 110 (SEP 20) 106 (SEP 19) 101 (SEP 18) 108 (SEP 16) Cr 0.67 (SEP 20) 0.67 (SEP 19) 0.68 (SEP 18) 0.77 (SEP 16) BUN 15 (SEP 20) 12 (SEP 19) 11 (SEP 18) 19 (SEP 16) Glucose Random H 102 (SEP 20) H 2 10 (SEP 19) H 215 (SEP 18) H 219 (SEP 16) Mg 1.8 (SEP 20) L 1.6 (SEP 19) Phos 2.5 (SEP 20) 3.5 (S EP 19) 3.0 (SEP 18) Ca L 8.4 (SEP 20) 8.7 (SEP 19) L 8.4 (SEP 18) L 8.1 (SEP 16) PT 14.2 (SEP 20) 14.4 (SEP 20) H 17.5 (SEP 19) INR 1.11 (SEP 20) 1.10 (SEP 20) H 1.42 (SEP 19) PTT H 37.1 (SEP 20) H 3 7.8 (JAN 20) H 82.9 (SEP 19) Total CK 25 (SEP 18) Physical Exam: General: laying comfortably in bed, well nourished HEENT: NCAT CV: regular rate, intact peripheral puls es Pulm: breathing comfortably, no wheezing , symmetric chest expansion GI: soft, non-tender, non-distended Extremities: alex site tender, some b lood under Tegaderm dressing Neurology: Mental Status:A&Ox3; good attention an d concentration Language: hypophonic Speech: no dysarthria CN: PERRLA, 3 mm BL, EOMI, sustain upgaz e 15 secs Motor: did not cooporate with full muscl e testing today but was noted to be antigravity in all 4 Gait:Deferred EKG: Reviewed previous EKG - Sinus rythm Imaging: reviewed A&P: Mrs. Lange is a 75 y/o patient w ell known to our service with history of meningioma s/p resection 10 years ago with VPS, right eye blindness, diabetes type 2, HTN, HLD, CAD, hypothyroidism, seropositive myasthenia gravis, and rece nt spinal surgery who presented as a direct transfer for possible MG exacerbation. On presentation, she had hypophonia, dysphagia, significant fatiguable weakness and low single breath count c/w MG exac erbation. Given prior reaction to IVIG, we decided to initiate treatment of exacerabtion with plasmapharesis. We plan a total of 5 sessions, and she has completed 2/5 so far with objective improvement i n respiratory function as well as hypophonia. We did update her at bedside and answered all his questions. 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 - Cont Prednisone 20 mg qd - PLEX started 02/17, continue for total of 5 cycles, monitor for improvement - Incentive spirometery daily - Continue home CPAP at night - PT, ST --> family more willing to cons ider IPR - Recommend avoiding medications that ca [...] on 12/05/19 -May consider repeat imaging pending PLE X PSYCH Depression Anxiety - Continue home sertraline [...] - likely from chronic steroid use vs re cent PNA - LA 1.6, procal <0.05 - CXR w/o clear consolidation - UA negative Nutrition Obesity BMI 35 with Hypertension and or DM - Dietitian consult Prophylaxis DVT: Heparin SubQ GI: None Bowel regimen: Docusate Senna Diet: dysphagia chopped with nectar thic k liquids, 1:1 meal assistance Code Status: Full Code Dispo: likely IPR Marlen Parra MD PGY-2 | Neurology [facility] Neurology staff Teaching physician statement I reviewed the residents note, personall y reviewed all the patient s labs and imaging studies and personally performed a complete neurological exam. I discussed the assessment and plan of care and agr ee with the plan as outlined in the lyudmila law's note. Respiratory status improved, weakness st ill present, difficult to examine given central catheter line in right groin and cooperation during exam, complaining of pain, will change dressing. David Macedo DO [facility], Neurohospitalist Die Cast Patternmaker of Neurology Extracted from: Title: Transfusion Medicine/Apheresis Consultation Author: Doug Castillo MD Date: 02/17/20 Note Transfusion Medicine/Apheresis Consultat ion Note DATE OF CONSULT:02/17/2020 CONSULTING TEAM:Neurology team REASON FOR CONSULTATION:Therapeutic Pl asma Exchange HISTORY OF PRESENT ILLNESS: Mrs. Franci Lange is a 75 y/o patient w ith history of dementia, meningioma s/p resection 10 years ago with VPS, diabetes type 2, HTN, HLD, CAD, HFrEF 50%, hypothyroidism, JD, seropositive myasthenia gravis (anti-striated muscle antibodies) , and recent spinal surgery around 3 weeks who presented as a direct transfer from [facility] due to concerns of MG exacerbation. She initially presented one week ago to [facility] wit h hypoglycemia and was found to have PNA. She completed antibiotics (Cefuroxime and Clynda per external Rx) and was discharged 5 days ago with PT. Per , t he next day of her discharged she sudden ly developed trouble standing due to lower extremity weakness, hypophonia and dysarthria. She didn't have any respiratory problems. She was brought back to [facility] where she was evaluated by Neurol pat and didn't think that it was a MG exacerbation so patient's family requested transfer to [facility]. At [facility] patient had MBST which showed severe dysphagia. Cu rrently, patient has no dysarthria but c ontinuos with hypophonia. The patient is allergic to [...] No fever. Respiratory: No shortness of breath, N o cough, No wheezing. Gastrointestinal: No abdominal pain. Skin: multiple bruising. PAST MEDICAL HISTORY: Historical Blindness of one eye DM - Diabetes mellitus Heart failure HTN - Hypertension MG, crisis (myasthenia gravis) Morbid obesity JD - Obstructive sleep apnea Type 2 diabetes mellitus with hyperglyce saloni PAST SURGICAL HISTORY: Cervical laminectomy section Meningioma s/p resection Resection Shunt construction Tonsillectomy FAMILY HISTORY:Crohn's disease: Grandp arent. Heart attack: Father. High blood pressure: Mother and Father. Type 2 diabetes mellitus: Grandparent. SOCIAL HISTORY: Smoking Status - 02/19/2011 None Alcohol Current, Frequency: 1-2 times pe r year., 09/08/2018 Substance Abuse Use: None., 09/08/2018 Tobacco Use: Never smoker. 02/15/2020 ALLERGIES: Adhesive Tape Cortizone-10 PHENobarbital aspirin (severe chest pain ) Cefepime Ciprofloxacin Erythromycin Gabapentin Immune globulin intravenous Penicillins (rash) Phenobarbital (rash) MEDICATIONS: - Prednisone 20mg - Unsure dosage - Amlodipine 10mg - Levothyroxine 88mcg - Sertraline 25mg - Clonazepam PRN - Lisinopril - Rosuvastatin - Insulin -Furosemide 20mg PHYSICAL EXAM: Vitals: T: 96 F (Axillary) HR: 67(Cassidy pheral) RR: 24 BP: 158/69 General: not alert or oriented x3 Eye: Pupils are equal, round and reactiv e to light, Extraocular movements are intact. Respiratory: Lungs are clear to ausculta tion. Cardiovascular: Normal S1 and S2, no mur murs/rubs/gallops. Gastrointestinal: Soft, non-tender, non- distended, no organomegaly. Skin: Multiple bruises LABS: 02/17/2020 07:41 Glucose POC 161 * H (R ef. Range 70 - 99) Gluc POC Comment 1 Notified RN/MD 02/17/2020 [...] 215 * H (Ref. Range 70 - 9 9) Calcium Lvl 8.4 L (Ref. Range 8.5 - 10 .5) Phosphorus 3.0 (Ref. Range 2.5 - 4.5) Lactic Acid Lvl 1.6 (Ref. Range 0.5 - 2.2) Procalcitonin Lvl <0.05 (Ref. Range 0. 00 - 0.10) Total CK 25 (Ref. Range 12 - 191) CHD Risk 2.85 L (Ref. Range 3.90 - 5.8 0) Chol 154 (Ref. Range - <=199) Trig 156 H (Ref. Range - <=149) HDL 54 L (Ref. Range >=61 - ) LDL (Calculated) 69 (Ref. Range - <=9 9) VLDL 31 WBC 16.0 H (Ref. Range [...] Lymphocytes 9.3 L (Ref. Range 20.0 - 4 0.0) Monocytes 5.0 (Ref. Range 2.0 - 12.0) Eosinophils 0.5 (Ref. Range 0.0 - 4.0) Basophils 0.5 (Ref. Range 0.0 - 1.0) Neutrophils # 13.6 H (Ref. Range 1.5 - 8.1) Lymphocytes # 1.5 (Ref. Range 1.0 - 5. 5) Monocytes # 0.8 (Ref. Range 0.0 - 0.8) Basophils # 0.1 (Ref. Range 0.0 - 0.2) ABO/Rh O POS Antibody Scrn Positive BB Note Result Note * 02/17/2020 12:59 Glucose POC 235 * H ( Ref. Range 70 - 99) Gluc POC Comment 1 Notified RN/MD ASSESSMENT AND PLAN: 1. Consent for plasmapheresis and transf usion of blood products was obtained from the patient. Her was educated about benefits and risks associated with the procedure. His concerns and questions were answered. 2. Central line is needed. So we are mariya ting for the central line replacement. 3. Five cycles of therapeutic plasma exc hange will be performed, with the interval of every other day, using 3L of 5% albumin. Fresh frozen plasma will be used on an as needed basis. 3g of 10% calcium c arbonate will be given for hypocalcemia prophylaxis. Please note, medications that are highly protein bound or have a low volume of distribution are removed during apheresis. We recommend holding these types of medications until after the procedure. Transfusion Medicine/Apheresis Service A ttending Note: This is a 75 y/o female with dementia an d a history of Myasthenia Gravis (MG) who was admitted for difficulty in swallow and metabolic/electrolyte disturbance, suspected for MG exacerbation. We are cons ulted by the neurology team for assistin g her management. 1.Per history review, the patient has a long history of MG and received TPE treatment before with some help. Per report, the patient stopped immune modulation treatment about a year ago when she had e xperienced severe allergic reaction (sev ere blisters) to IVIG. Therefore, plasma exchange seems to be the best treatment option. Consent was obtained from her wh o is the power prosecuting attorney. 2.A cycle of 5 TPE procedures is [...] Thanks for consultation. Mariajose Garsia MD ID# [id number] Extracted from: Title: General Neurology HPI Author: Robert Rodriguez Date: 02/15/20 [facility] H&P Chief Complaint: Possible MG exacerbatio n HPI: Mrs. 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 She initially presented one week ago to [facility] with hypoglicemia and was found to have PNA. She completed antibiotics (Cefuroxime and Clynda per external Rx) and was discharged 5 days ago with PT. Per , th e next day of her discharged she suddenl y developed trouble standing due to lower extremity weakness, hypophonia and dysarthria. She didn't have any respiratory problems. She was brought back to [facility] where she was evaluated by Neurolo gy and didn't think that it was a MG exacerbation so patient's family requested transfer to [facility]. At [facility] patient had MBST which showed severe dysphagia. Cur rently, patient has no dysarthria but co ntinuos with hypophonia. She denies any SOB. Due [...] Systems: GEN: no fever, chills, weight loss, fati ibrahima EYES: no blurred vision, double vision CARDIO: no chest pain, palpitations RESP: no shortness of breath, cough GI: no nausea, vomiting, diarrhea, abdom inal pain : no frequency, dysuria, hematuria NEURO: see HPI SKIN: no rashes, lesions MSK: Generalized muscle pain ENDO: no heat or cold intolerance HEME: no lymph node enlargement, easy br uising Objective: Vitals Tmp(F) Pulse BP RR SpO2 FIO2 02/14 20:12 98.2 69 158/69 20 --- --- 02/14 18:15 98.2 72 132/69 20 94 --- 24 Hr Tmax: 98.2F (36.78c) at 02/14 20:1 2 Vital Signs are the last 5 in the past 48 hours. Physical Exam: General: laying comfortably in bed, well nourished HEENT: NCAT CV: regular rate, intact peripheral puls es Pulm: breathing comfortably, no wheezing , symmetric chest expansion GI: soft, non-tender, non-distended Neurology: Mental Status:A&Ox3; good attention an d concentration; normal fund of knowledge and memory Language: intact fluency, comprehension, naming, and repetition Speech: no dysarthria CN: PERRLA, 3 mm BL, EOMI, full VF in L eye; no facial asymmetry or facial weakness noted, no ptosis identified with upward gaze, facial sensation intact; SCM and traps are 5/5 bilaterally Motor: R L Deltoid 4/5 4/5 Tricep 4+/5 4+/5 Bicep 5/5 5/5 Director Of Industrial Relations 5/5 5/5 Iliopsoas 4/5 4/5 Quadricep 4/5 [...] Imaging: Chest x ray: Pending A&P: Mrs. Lange is a 75 y/o patient w ith history of dementia, meningioma s/p resection 10 years ago with VPS, right eye blindness, diabetes type 2, HTN, HLD, CAD, hypothyroidism, seropositive saba sthenia gravis, and recent spinal surger y who presents as a direct transfer for possible MG exacerbation. Currently, her clinical exam and symptoms are not clearly consistent with exacerbation and she's not having respiratory compromised. She will be re evaluated tomorrow morning to decide if PLEX needs to be ordered. She had a reaction to IVG with blisters in her foot on 03/2019 so family would like to avoid IVIG. 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 She was operated by Dr. Mcmullen and ther e was concern that some of the screws in her cervical spine had been displaced. He asked for us to get in touch with Dr. Izaguirre who is Ms. Lange's outpatient neurologist. He did also recommend that we give her clonazepam as she [...] was updated about plan in the evening. 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 at night Dysphagia - NPO per speech therapy - Pending MBS - Can give meds in puree/pudding per COMPLIANCE REVIEWER PSYCH Depression Anxiety - Continue home sertraline - Hold clonazepam RESP JD - Continue home CPAP Concern for respiratory insufficiency - Will avoid medications that can increa se weakness - NIF, FVC q3-6 hours - [...] 16.1 here - CXR, UA unremarkable though questionab le haziness in RLL on xray Nutrition Obesity BMI 35 with Hypertension and or DM - Dietitian consult Marlen Parra MD PGY-2 | Neurology [facility] Neurology staff Teaching physician statement I reviewed the residents note, personall y reviewed all the patient s labs and imaging studies and personally performed a complete neurological exam. I discussed the assessment and plan of care and agr ee with the plan as outlined in the lyudmila law's note. David Macedo DO [facility], Neurohospitalist [employer] Patternmaker of Neurology
--- OUTSIDE RECORDS SUMMARY | 2020-03-16 10:05 | XMS REPORT | Summary of Care ---
:1945 Author Organization [facility] Address [address] [place] [id number]- Encounter HQ Marshallntr_[email or web address](FIN) [id number] Date(s): 02/15/20 - 02/27/[address] Professional Services provided by [facility] [place] [address]- Discharge Disposition: Intermediate Facility Attending Physician: Clovis Miguel MD Admitting Physician: David Macedo DO Referring Physician: Shirley Paez MD Vital Signs Most recent to oldest 1 2 3 [Reference Range]: Height 149.86 cm (02/15/20 5:43 PM) Temperature Oral [96.4-99.1 98.4 DegF 98.8 DegF 96.8 DegF DegF] (02/22/20 8:00 PM) (02/22/20 4:35 PM) (02/22/20 1:0 0 PM) Blood Pressure [90-140/60-90 106/64 mmHg 125/73 mmHg 106 /52 mmHg mmHg] (02/27/20 1:00 PM) (02/27/20 9:00 AM) (02/27/20 7:0 0 AM) Respiratory Rate [14-20 32 BRMIN 27 BRMIN 32 BRMIN BRMIN] *HI* *HI* *HI* (02/27/20 1:00 PM) (02/27/20 12:00 PM) (02/27/20 11 :00 AM) Peripheral Pulse Rate [60-100 60 bpm 73 bpm 66 bpm bpm] (02/16/20 7:21 AM) (02/16/20 4:32 AM) [...] hyperglycemia(Confirmed) Diabetes type 2, Active uncontrolled(Confirmed) 1right [id number] Allergies, Adverse Reactions, Alerts Substance Reaction Severity Status penicillins1 rash Active ciprofloxacin Active erythromycin2 Active phenobarbital rash Active gabapentin3 Active aspirin4 severe chest pain Active immune globulin intravenous5 Act kimberly cefepime Active Cortizone-10 Active Adhesive Tape6 Active PHENobarbital7 Active 1Data migrated from [employer] on 01/22/15. Originally documented as PCN.2Data migrated from [employer] on 01/22/15. Originally documented as ERYTHROMYCIN.3 [email or web address] migrated from [employer] on 01/22/15. Originally documented as ASPIRIN.5Husband called hospital on 12/06/19 and stated that the pt was allergic to [id number] migrated from [employer] on 08/01/15. Originally [...] 02/19/20 Status: Completedalbumin human 5% intravenous solution 125 gm, 2,500 mL, 2500 ml/hr, Route: IV, Drug Form: INJ, Dosing Weight 84.545, kg, ONCE, Start date:02/21/20 11:23:00 CDT, Stop date: 02/21/20 11:23:00 CDT, Indication: Plasmapheresis, 0 Notes: LOT#: Mfg: (Same as: Albuminar)"blood product derivative"WASTE: F/P - Red; E -Red MEDICATION WASTE Product Size: 25 gmProduct Wasted: _0__ gm Start Date: 02/21/20 Stop Date: 02/21/20 Status: Completedalbumin human 5% intravenous solution 125 gm, 2,500 mL, 2500 ml/hr, Route: IV, Drug Form: INJ, Dosing Weight 84.545, kg, ONCE, Start date:02/23/20 9:08:00 CDT, Stop date: 02/23/20 9:08:00 CDT, Indication: Plasmapheresis, 0 Notes: LOT#: Mfg: (Same as: Albuminar)"blood product derivative"WASTE: F/P - Red; E -Red MEDICATION WASTE Product Size: 25 gmProduct Wasted: _0__ gm Start Date: 02/23/20 Stop Date: 02/23/20 Status: Completedalbumin human 5% intravenous solution 2,500 mL, Route: IV, Dosing Weight 84.545, kg, ONCE, Start date: 02/25/20 9:32:00 CDT, Stop date: 02/25/20 9:32:00 CDT, Indication: Plasmapheresis Start Date: 02/25/20 Stop Date: 02/25/20 Status: Completedalbumin human 5% intravenous solution 150 [...] Start Date: 02/17/20 Stop Date: 02/17/20 Status: Completedalbumin human 5% intravenous solution 150 gm, 3,000 mL, 3000 ml/hr, Route: IV, Drug Form: INJ, Dosing Weight 84.545, kg, ONCE, Routine, Start date: 02/21/20 6:45:00 CDT, Stop date: 02/21/20 6:45:00 CDT, Indication: Plasmapheresis, 0 Notes: LOT#: Mfg: (Same as: Albuminar)"blood product derivative"WASTE: F/P - Red; E -Red MEDICATION WASTE Product Size: 25 gmProduct Wasted: ___ gm Start Date: 02/21/20 Stop Date: 02/21/20 Status: DiscontinuedamLODIPine 5 mg, 1 tab, Route: PO, Drug form: TAB, Daily, Dosing Weight 84.545, kg, Priority: NOW, Start date: 02/15/20 19:46:00 CDT, Duration: 30 day, Stop date: 03/16/20 9:00:00 CDT, 0 Notes: (Same as: Juli) Start Date: 02/15/20 Stop Date: 02/16/20 Status: DiscontinuedBactrim DS 800 mg- 160 mg oral tablet 1 tab, Route: PO, Drug Form: TAB, Dosing Weight 84.545, kg, [id number], Start date: 02/22/20 20:00:00 CDT, Stop date: 02/28/20 8:00:00 CDT, 0 Start Date: 02/22/20 Stop Date: 02/27/20 Status: DiscontinuedBactrim DS 800 mg- 160 mg oral tablet 1 tab, PO, [id number], 0 Refill(s) Start Date: 02/27/20 Stop Date: 02/27/20 Status: DeletedBactrim DS 800 mg- 160 mg oral tablet 1 tab, PO, [id number], X 1 day, # 2 tab, 0 Refill(s) Start Date: 02/27/20 Stop Date: 02/28/20 Status: Completedcalcium gluconate 3 gm, 30 mL, Route: IV, Drug form: INJ, Continuous, Dosing Weight 84.545, kg, Start date: 02/19/20 10:00:00 CDT, Duration: 1 doses or times, 0 Notes: WASTE: F/P - Sink; E - Municipal Trash Bin Start Date: 02/19/20 Stop Date: 02/19/20 Status: Completedcalcium gluconate 3 gm, 30 mL, Route: IV, Drug form: INJ, Continuous, Dosing Weight 84.545, kg, Start date: 02/23/20 9:30:00 CDT, Duration: 1 doses or times, 0 Notes: WASTE: F/P - Sink; E - Municipal Trash Bin Start Date: 02/23/20 Stop Date: 02/23/20 Status: Completedcalcium gluconate 2.5 gm, Route: IV, ONCE, Dosing Weight 84.545, kg, Start date: 02/25/20 9:32:00 CDT, Stop date: 02/25/20 9:32:00 CDT Start Date: 02/25/20 Stop Date: 02/25/20 Status: Completedcalcium gluconate 3 gm, 30 mL, Route: MISC, Drug form: INJ, Continuous, Dosing Weight 84.545, kg, Start date: 02/16/2017:00:00 CDT, Duration: 1 doses or times, 0 Notes: WASTE: F/P - Sink; E - Municipal Trash Bin Start Date: 02/17/20 Stop Date: 02/17/20 Status: Completedcalcium gluconate 2.5 gm, 25 mL, Route: IV, Drug form: INJ, Continuous, Dosing Weight 84.545, kg, Start date: :00:00 CDT, Duration: 1 doses or times, 0 Notes: WASTE: F/P - Sink; E - Municipal Trash Bin Start Date: 02/21/20 Stop Date: 02/21/20 Status: Completedcalcium gluconate 650 mg oral tablet 2 tab, Route: PO, ONCE, Dosing Weight 84.545, kg, Start date: 02/20/20 7:03:00 CDT, Stop date: 02/20/20 7:03:00 CDT Start Date: 02/20/20 Stop Date: 02/20/20 Status: DeletedclonazePAM 0.5 mg, 1 tab, Route: PO, Drug form: TAB, BID, Dosing Weight 84.545, kg, PRN Anxiety, Start date: 02/16/20 12:29:00 CDT, Duration: 30 day, Stop date: 03/17/20 12:28:00 CDT, 0 Notes: (Same As: KlonoPIN) Hazardous Drug Group 3:Reproductive risk Hazardous Drug -- Refer to safehandling procedure PPE Matrix Start Date: 02/16/20 Stop Date: 02/27/20 Status: DiscontinuedclonazePAM 0.25 mg, 2 tab, Route: [...] PPE Matrix Start Date: 02/17/20 Stop Date: 02/27/20 Status: [id number] 12.5 gm, 25 mL, Route: IVP, Drug Form: INJ, Dosing Weight 84.545, kg, PRN, PRN Blood Glucose Results, Start date: 02/21/20 20:57:00 CDT, Duration: 30 day, Stop date: 03/22/20 20:56:00 CDT, 0 Start Date: 02/21/20 Stop Date: 02/27/20 Status: [id number] 25 gm, 50 mL, Route: IVP, Drug Form: INJ, Dosing Weight 84.545, kg, PRN, PRN Blood Glucose Results, Start date: 02/21/20 20:57:00 CDT, Duration: 30 day, Stop date: 03/22/20 20:56:00 CDT, 0 Start Date: 02/21/20 Stop Date: 02/27/20 Status: DiscontinuedDextrose 5% in Water IV 1,000 mL 1,000 [...] CDT, 0 Start Date: 02/18/20 Stop Date: 02/21/20 Status: DiscontinuedDextrose 50% Syringe (D50W) 25 gm, 50 mL, Route: IVP, Drug Form: INJ, Dosing Weight 84.545, kg, PRN, PRN Blood Glucose Results, Start date: 02/18/20 16:05:00 CDT, Duration: 30 day, Stop date: 03/19/20 16:04:00 CDT, 0 Start Date: 02/18/20 Stop Date: 02/21/20 Status: DiscontinuedDextrose 50% Syringe (D50W) 25 mL, [...] 03/16/20 9:00:00 CDT, 0 Notes: (Same as Senokot-S) Equiv. to Cassidy-Colace. Start Date: 02/16/20 Stop Date: 02/16/20 Status: Discontinuedfurosemide 20 mg oral tablet 20 mg, 1 tab, Route: GT, Drug form: TAB, Daily, Dosing Weight 84.545, kg, Start date: 02/17/20 9:00:00 CDT, Duration: 30 day, Stop date: 03/17/20 9:00:00 CDT, 0 Notes: (Same as: Lasix) May cause GI upset. Give with food or milk. Start Date: 02/17/20 Stop Date: 02/27/20 Status: Discontinuedfurosemide 20 mg oral tablet 20 [...] CDT, 0 Start Date: 02/18/20 Stop Date: 02/21/20 Status: Discontinuedglucagon 1 mg, Route: IM, Drug form: PDR/INJ, PRN, Dosing Weight 84.545, kg, PRN Blood Glucose Results, Startdate: 02/21/20 20:57:00 CDT, Duration: 30 day, Stop date: 03/22/20 20:56:00 CDT, 0 Start Date: 02/21/20 Stop Date: 02/27/20 Status: Discontinuedglucagon 1 mg, Route: IM, PRN, [...] Date: 02/15/20 Stop Date: 02/16/20 Status: Discontinuedheparin Route: MISC, Drug form: INJ, ONCE, Dosing Weight 84.545, kg, Please have at bedside to pack catheterpost apheresis procedure., Start date: 02/25/20 10:44:00 CDT, Stop date: 02/25/20 10:44:00 CDT, 0 Start Date: 02/25/20 Stop Date: 02/25/20 Status: Orderedheparin 5,000 unit, 1 mL, Route: SUB-Q, Drug form: INJ, Q12H, Dosing Weight 84.545, kg, Start date: 02/24/2021:00:00 CDT, Duration: 30 day, Stop date: 03/26/20 9:00:00 CDT, 0 Notes: porcine heparin Start Date: 02/25/20 Stop Date: 02/27/20 Status: Discontinuedheparin 5000 units/mL injectable solution 5,000 unit, 1 mL, Route: SUB-Q, Drug form: INJ, Q8H, Dosing Weight 84.545, kg, Start date: 02/16/20 0:00:00 CDT, Duration: 30 day, Stop date: 03/16/20 16:00:00 CDT, 0 Notes: porcine heparin Start Date: 02/16/20 Stop Date: 02/24/20 Status: Discontinuedinsulin detemir 15 unit, Route: SUB-Q, BID, Dosing Weight 84.545, kg, Start date: 02/18/20 16:06:00 CDT, Duration: 30 day, Stop date: 03/19/20 9:00:00 CDT Start Date: 02/18/20 Stop Date: 02/18/20 Status: Deletedinsulin glargine 20 unit, 0.2 mL, Route: SUB-Q, Drug form: SOLN, BID, Start date: 02/18/20 17:00:00 CDT, Duration: 30day, Stop date: 03/19/20 9:00:00 CDT, 0 Start Date: 02/18/20 Stop Date: 02/21/20 Status: Discontinuedinsulin glargine 30 unit, Route: SUB-Q, Drug form: SOLN, BID, Start date: 02/22/20 9:00:00 CDT, Duration: 30 day, Stop date: 03/22/20 17:00:00 CDT, 0 Start Date: 02/22/20 Stop Date: 02/21/20 Status: Canceledinsulin glargine 15 unit, 0.15 mL, Route: SUB-Q, Drug form: SOLN, BID, Start date: 02/22/20 9:00:00 CDT, Stop date: 03/22/20 21:00:00 CDT, 0 Start Date: 02/22/20 Stop Date: 02/27/20 Status: Discontinuedinsulin glargine 100 units/mL subcutaneous solution 15 unit, SUB-Q, BID, 0 Refill(s) Start Date: 02/27/20 Stop Date: 02/27/20 Status: Deletedinsulin glargine 100 units/mL subcutaneous solution 20 unit, SUB-Q, BID, # 10 mL, 0 Refill(s) Start Date: 02/27/20 Stop Date: 03/28/20 Status: Orderedinsulin lispro 2 unit, 0.02 mL, Route: SUB-Q, Drug form: SOLN, TID-Before Meals, Dosing Weight 84.545, kg, PRN Blood Glucose Results, Start date: 02/21/20 20:57:00 CDT, Duration: 30 day, Stop date: 03/22/20 20:56:00 CDT, 0 Notes: (Same as: Humalog) Roll in palms of hands gently; Do not shake vigorously. WASTE: F/P - Black; E - Municipal Trash BinStable for 28 days at room temperature.Expires in days from Date Start Date: 02/21/20 Stop Date: 02/27/20 Status: Discontinuedinsulin lispro 4 unit, 0.04 mL, Route: SUB-Q, Drug form: SOLN, TID-Before Meals, Dosing Weight 84.545, kg, PRN Blood Glucose Results, Start date: 02/21/20 20:57:00 CDT, Duration: 30 day, Stop date: 03/22/20 20:56:00 CDT, 0 Notes: (Same as: Humalog) Roll in palms of hands gently; Do not shake vigorously. WASTE: F/P - Black; E - Municipal Trash BinStable for 28 days at room temperature.Expires in days from Date Start Date: 02/21/20 Stop Date: 02/27/20 Status: Discontinuedinsulin lispro 6 unit, 0.06 mL, Route: SUB-Q, Drug form: SOLN, TID-Before Meals, Dosing Weight 84.545, kg, PRN Blood Glucose Results, Start date: 02/21/20 20:57:00 CDT, Duration: 30 day, Stop date: 03/22/20 20:56:00 CDT, 0 Notes: (Same as: Humalog) Roll in palms of hands gently; Do not shake vigorously. WASTE: F/P - Black; E - Municipal Trash BinStable for 28 days at room temperature.Expires in days from Date Start Date: 02/21/20 Stop Date: 02/27/20 Status: Discontinuedinsulin lispro 8 unit, 0.08 mL, Route: SUB-Q, Drug form: SOLN, TID-Before Meals, Dosing Weight 84.545, kg, PRN Blood Glucose Results, Start date: 02/21/20 20:57:00 CDT, Duration: 30 day, Stop date: 03/22/20 20:56:00 CDT, 0 Notes: (Same as: Humalog) Roll in palms of hands gently; Do not shake vigorously. WASTE: F/P - Black; E - Municipal Trash BinStable for 28 days at room temperature.Expires in days from Date Start Date: 02/21/20 Stop Date: 02/27/20 Status: Discontinuedinsulin lispro 10 unit, 0.1 mL, Route: SUB-Q, Drug form: SOLN, TID-Before Meals, Dosing Weight 84.545, kg, PRN Blood Glucose Results, Start date: 02/21/20 20:57:00 CDT, Duration: 30 day, Stop date: 03/22/20 20:56:00 CDT, 0 Notes: (Same as: Humalog) Roll in palms of hands gently; Do not shake vigorously. WASTE: F/P - Black; E - Municipal Trash BinStable for 28 days at room temperature.Expires in days from Date Start Date: 02/21/20 Stop Date: 02/27/20 Status: Discontinuedinsulin lispro 1 unit, 0.01 mL, Route: SUB-Q, Drug form: SOLN, Bedtime, Dosing Weight 84.545, kg, PRN Blood GlucoseResults, Start date: 02/21/20 20:57:00 CDT, Duration: 30 day, Stop date: 03/22/20 20:56:00 CDT, 0 Notes: (Same as: Humalog) Roll in palms of hands gently; Do not shake vigorously. WASTE: F/P - Black; E - Municipal Trash BinStable for 28 days at room temperature.Expires in days from Date Start Date: 02/21/20 Stop Date: 02/27/20 Status: Discontinuedinsulin lispro 2 unit, 0.02 mL, Route: SUB-Q, Drug form: SOLN, Bedtime, Dosing Weight 84.545, kg, PRN Blood GlucoseResults, Start date: 02/21/20 20:57:00 CDT, Duration: 30 day, Stop date: 03/22/20 20:56:00 CDT, 0 Notes: (Same as: Humalog) Roll in palms of hands gently; Do not shake vigorously. WASTE: F/P - Black; E - Municipal Trash BinStable for 28 days at room temperature.Expires in days from Date Start Date: 02/21/20 Stop Date: 02/27/20 Status: Discontinuedinsulin lispro 3 unit, 0.03 mL, Route: SUB-Q, Drug form: SOLN, Bedtime, Dosing Weight 84.545, kg, PRN Blood GlucoseResults, Start date: 02/21/20 20:57:00 CDT, Duration: 30 day, Stop date: 03/22/20 20:56:00 CDT, 0 Notes: (Same as: Humalog) Roll in palms of hands gently; Do not shake vigorously. WASTE: F/P - Black; E - Municipal Trash BinStable for 28 days at room temperature.Expires in days from Date Start Date: 02/21/20 Stop Date: 02/27/20 Status: Discontinuedinsulin lispro 4 unit, 0.04 mL, Route: SUB-Q, Drug form: SOLN, Bedtime, Dosing Weight 84.545, kg, PRN Blood GlucoseResults, Start date: 02/21/20 20:57:00 CDT, Duration: 30 day, Stop date: 03/22/20 20:56:00 CDT, 0 Notes: (Same as: Humalog) Roll in palms of hands gently; Do not shake vigorously. WASTE: F/P - Black; E - Municipal Trash BinStable for 28 days at room temperature.Expires in days from Date Start Date: 02/21/20 Stop Date: 02/27/20 Status: Discontinuedinsulin lispro 3 unit, 0.03 mL, Route: SUB-Q, Drug form: SOLN, TID-Before Meals, Dosing Weight 84.545, kg, Start date: 02/22/20 7:30:00 CDT, Duration: 30 day, Stop date: 03/22/20 16:30:00 CDT, 0 Notes: (Same as: Humalog) Roll in palms of hands gently; Do not shake vigorously. WASTE: F/P - Black; E - Municipal Trash BinStable for 28 days at room temperature.Expires in days from Date Start Date: 02/22/20 Stop Date: 02/27/20 Status: Discontinuedinsulin lispro 2 unit, Route: SUB-Q, Sliding Scale, [...] 02/15/20 Stop Date: 02/16/20 Status: DiscontinuedInsulin regular 20 unit, 0.2 mL, Route: SUB-Q, Drug form: SOLN, ONCE, Dosing Weight 84.545, kg, Priority: STAT, Start date: 02/21/20 17:46:00 CDT, Stop date: 02/21/20 17:46:00 CDT, 0 Notes: (Same as: Humulin R) Roll in palms of hands gently; Do not shake vigorously. WASTE:F/P - Black; E - Municipal Trash BinStable for 31 days at room temperature Expires in days from Date Start Date: 02/21/20 Stop Date: 02/21/20 Status: CompletedInsulin regular 3 unit, 0.03 mL, [...] from Date Start Date: 02/18/20 Stop Date: 02/21/20 Status: DiscontinuedInsulin regular 6 unit, 0.06 mL, [...] from Date Start Date: 02/18/20 Stop Date: 02/21/20 Status: DiscontinuedInsulin regular 9 unit, 0.09 mL, [...] from Date Start Date: 02/18/20 Stop Date: 02/21/20 Status: DiscontinuedInsulin regular 12 unit, 0.12 mL, [...] from Date Start Date: 02/18/20 Stop Date: 02/21/20 Status: DiscontinuedInsulin regular 15 unit, 0.15 mL, [...] from Date Start Date: 02/18/20 Stop Date: 02/21/20 Status: DiscontinuedInsulin regular 10 unit, 0.1 mL, [...] 02/18/20 Stop Date: 02/18/20 Status: DiscontinuedInsulin regular 6 unit, 0.06 mL, Route: SUB-Q, Drug form: SOLN, ONCE, Dosing Weight 84.545, kg, Priority: STAT, Start date: 02/21/20 16:11:00 CDT, Stop date: 02/21/20 16:11:00 CDT, 0 Notes: (Same as: Humulin R) Roll in palms of hands gently; Do not shake vigorously. WASTE:F/P - Black; E - [employer] Trash BinStable for 31 days at room temperature Expires in days from Date Start Date: 02/21/20 Stop Date: 02/21/20 Status: DiscontinuedLactated Ringers (Bolus) IV 500 mL, 500 ml/hr, Infuse Over: 1 hr, Route: IV, 500, Drug form: INJ, ONCE, Priority: STAT, Dosing Weight 84.545 kg, Start date: 02/27/20 7:19:00 CDT, Stop date: 02/27/20 7:19:00 CDT, 0 Start Date: 02/27/20 Stop Date: 02/27/20 Status: CompletedLactated Ringers IV 1,000 mL 1,000 mL, Rate: 100 ml/hr, Infuse over: 10 hr, Route: IV, Dosing Weight 84.545 kg, Total Volume: 1,000, Start date: 02/22/20 7:37:00 CDT, Duration: 30 day, Stop date: 03/23/20 7:36:00 CDT, 1.91, m2, 0 Start Date: 02/22/20 Stop Date: 02/27/20 Status: Discontinuedlansoprazole 3 mg/mL oral suspension 30 mg = 10 mL, PO, BID-Before Meals, # 600 mL, 0 Refill(s) Start Date: 02/27/20 Stop Date: 03/28/20 Status: OrderedLantus 100 units/mL 10 unit, Route: SUB-Q, ONCE, Dosing Weight 84.545, kg, Start date: 02/21/20 21:00:00 CDT, Stop date:02/21/20 21:00:00 CDT Start Date: 02/21/20 Stop Date: 02/21/20 Status: DiscontinuedLevemir FlexTouch 100 units/mL subcutaneous solution 30 unit, SUB-Q, BID, 0 Refill(s) Start Date: 02/16/20 Stop Date: 02/27/20 Status: Discontinuedlevothyroxine 88 microgram, 1 tab, Route: GT, Drug [...] (Same as:Synthroid) Start Date: 02/17/20 Stop Date: 02/27/20 Status: Discontinuedlevothyroxine 88 microgram, 1 tab, Route: PO, Drug [...] CDT, 0 Start Date: 02/19/20 Stop Date: 02/27/20 Status: Discontinuedlisinopril 5 mg, 1 tab, Route: GT, Drug form: TAB, Daily, Dosing Weight 84.545, kg, Start date: 02/17/20 9:00:00 CDT, Duration: 30 day, Stop date: 03/16/20 9:00:00 CDT, 0 Notes: (Same as: Prinivil, Zestril) Start Date: 02/17/20 Stop Date: 02/27/20 Status: Discontinuedlisinopril 5 mg, 1 tab, Route: PO, Drug form: TAB, Daily, Dosing Weight 84.545, kg, Start date: 02/16/20 9:00:00 CDT, Duration: 30 day, Stop date: 03/16/20 9:00:00 CDT, 0 Notes: (Same as: Prinivil, Zestril) Start Date: 02/16/20 Stop Date: 02/16/20 Status: Discontinuedlisinopril 5 mg oral tablet 5 mg = 1 tab, GT, Daily, 0 Refill(s) Start Date: 02/27/20 Status: OrderedLyrica 25 mg, 1 cap, Route: PO, Drug form: CAP, Q8H-01, Dosing Weight 84.545, kg, Priority: NOW, Start date: 02/20/20 10:07:00 CDT, Duration: 30 day, Stop date: 03/21/20 9:00:00 CDT, 0 Notes: (Same as: Lyrica) Start Date: 02/20/20 Stop Date: 02/27/20 Status: DiscontinuedMestinon 60 mg, 1 tab, Route: GT, Drug form: TAB, Q8H, Start date: 02/17/20 16:00:00 CDT, Duration: 30 day, Stop date: 03/18/20 8:00:00 CDT, 0 Notes: (Same as: Mestinon) Start Date: 02/17/20 Stop Date: 02/19/20 Status: DiscontinuedMestinon 60 mg oral tablet 60 mg = 1 tab, PO, TID, 0 Refill(s) Start Date: 02/16/20 Status: OrderedNovoLOG FlexPen 100 units/mL injectable solution See Instructions, 10 unit SUB-Q TID-Before Meals and at bedtime, 0 Refill(s) Start Date: 02/16/20 Status: OrderedOs-Josafat 500 1,250 mg, 1 tab, Route: PO, Drug form: TAB, BID, Start date: 02/20/20 10:00:00 CDT, Duration: 2 doses or times, Stop date: 02/20/20 17:00:00 CDT, 0 Notes: 500mg elemental calcium = 1250mg calcium carbonate. Contains 500mg elemental calcium. (SameAs: OsCal 500) Start Date: 02/20/20 Stop Date: 02/20/20 Status: Completedpotassium chloride 20 mEq oral tablet, extended release (KCL) 40 mEq, 2 tab, Route: PO, Drug form: ERTAB, ONCE, Dosing Weight 84.545, kg, Start date: 02/18/20 5:45:00 CDT, Stop date: 02/18/20 5:45:00 CDT, 0 Notes: (Same as: K-Dur )"Do Not Crush" Give with food and full glass of waterFor patients unable to swallow tablet, dissolve in one half glass of water. Allow about 2 minutes for the tablets to disintegrate. Stir before giving to prepare slurry and administer.Please exclude Patients with feedingtube less than 14 [place] (Dobhoff, J-tube etc) and pediatric and patients. [...] with food. Start Date: 02/16/20 Stop Date: 02/27/20 Status: DiscontinuedpredniSONE 20 mg oral tablet 20 mg = 1 tab, PO, Daily, 0 Refill(s) Start Date: 02/27/20 Stop Date: 02/27/20 Status: DeletedpredniSONE 20 mg oral tablet 20 mg = 1 tab, PO, Daily, X 21 day, # 21 tab, 0 Refill(s) Start Date: 02/27/20 Stop Date: 03/19/20 Status: Orderedpregabalin 25 mg oral capsule 25 mg = 1 cap, PO, Q8H-01, 0 Refill(s) Start Date: 02/27/20 Status: Orderedpyridostigmine 60 mg, 1 tab, Route: [...] CDT, 0 Start Date: 02/19/20 Stop Date: 02/27/20 Status: Discontinuedrosuvastatin 20 mg, 2 tab, Route: [...] As: Crestor) Start Date: 02/18/20 Stop Date: 02/27/20 Status: Discontinuedrosuvastatin 10 mg oral tablet 10 mg = 1 tab, PO, Bedtime, 0 Refill(s) Start Date: 02/27/20 Status: Orderedsertraline 25 mg, 1 tab, Route: GT, Drug form: TAB, Daily, Dosing Weight 84.545, kg, Start date: 02/17/20 9:00:00 CDT, Duration: 30 day, Stop date: 03/17/20 9:00:00 CDT, 0 Notes: (Same as: Zoloft) Start Date: 02/17/20 Stop Date: 02/27/20 Status: Discontinuedsertraline 25 mg, 1 tab, Route: PO, Drug [...] Vitamin B1) Start Date: 02/17/20 Stop Date: 02/27/20 Status: Discontinuedthiamine 100 mg oral tablet 200 mg = 2 tab, PO, Daily, 0 Refill(s) Start Date: 02/27/20 Status: Orderedthiamine 100 mg oral tablet 200 mg = 2 tab, PO, Daily Start Date: 02/16/20 Stop Date: 02/27/20 Status: DiscontinuedTylenol 650 mg, 2 tab, Route: PO, Drug form: TAB, Q8H, Dosing Weight 84.545, kg, PRN Pain Score 1-3, Start date: 02/17/20 17:08:00 CDT, Duration: 30 day, Stop date: 03/18/20 17:07:00 CDT, 0 Notes: Do not exceed 4 gm/day. (Same as: Tylenol) Start Date: 02/17/20 Stop Date: 02/27/20 Status: DiscontinuedTylenol Extra Strength 500 mg oral tablet 1,000 mg = 2 tab, PO, TID, 0 Refill(s) Start Date: 02/16/20 Stop Date: 02/27/20 Status: Discontinued Results Most recent to oldest 1 2 3 4 [Reference Range]: Procalcitonin Lvl <0.05 ng/mL <0.05 ng/mL [0.00-0.10 ng/mL] (02/21/20 7:49 PM) (02/17/20 12:10 PM) Neutrophils # 14.9 K/CMM 14.3 K/CMM 15.2 K/CMM [1.5-8.1 K/CMM] *HI* *HI* *HI* (02/27/20 12:52 AM) (02/26/20 1:07 AM) (02/25/20 3:30 AM) Lymphocytes # 2.9 K/CMM 1.8 K/CMM 1.9 K/CMM [1.0-5.5 K/CMM] (02/27/20 12:52 AM) (02/26/20 1:07 AM) (02/25/20 3:30 AM) Monocytes # [0.0-0.8 1.1 K/CMM 0.7 K/CMM 0.8 K/CMM K/CMM] *HI* (02/26/20 1:07 AM) (02/25/20 3:30 AM) (02/27/20 12:52 AM) Eosinophils # 0.1 K/CMM 0.2 K/CMM 0.1 K/CMM [0.0-0.5 K/CMM] (02/27/20 12:52 AM) (02/22/20 10:43 AM) (02/22/20 3:57 AM) Basophils # [0.0-0.2 0.1 K/CMM 0.1 K/CMM 0.2 K/CMM K/CMM] (02/27/20 12:52 AM) (02/24/20 1:06 AM) (02/22/20 10:43 AM ) BNP [<=100 pg/mL] 73 pg/mL (02/22/20 10:43 AM) eGFR 59 mL/min/1.73m2 1 80 mL/min/1.73m2 2 80 mL/min/1.73m2 3 *NA* *NA* *NA* (02/27/20 12:52 AM) (02/26/20 1:07 AM) (02/25/20 3:30 AM) ABO/Rh O POS O POS *Unknown* *Unknown* (02/19/20 9:31 AM) (02/17/20 12:10 PM) A/G Ratio [0.7-1.6] 0.7 (02/15/20 9:49 PM) AB Int Anti-D *Unknown* (02/17/20 12:10 PM) Antibody Scrn Negative Positive (02/19/20 9:31 AM) (02/17/20 12:10 PM) Albumin Lvl [3.5-5.0 2.4 g/dL g/dL] *LOW* (02/15/20 9:49 PM) Alk Phos [39-136 162 unit/L unit/L] *HI* (02/15/20 9:49 PM) ALT [0-65 unit/L] 26 unit/L (02/15/20 9:49 PM) AGAP [10.0-20.0 7.3 mEq/L 10.3 mEq/L 12.1 mEq/L mEq/L] *LOW* (02/26/20 1:07 AM) (02/25/20 3:30 AM) (02/27/20 12:52 AM) Anisocyte [None Seen] 1+ *ABN* (02/22/20 10:43 AM) AST [0-37 unit/L] 16 unit/L (02/15/20 9:49 PM) B/C Ratio [6-25] 25 (02/15/20 9:49 PM) Basophils [0.0-1.0 %] 0.4 % 0.3 % 0.2 % (02/27/20 12:52 AM) (02/26/20 1:07 AM) (02/25/20 3:30 AM) BUN [7-22 mg/dL] 20 mg/dL 14 mg/dL 16 mg/dL (02/27/20 12:52 AM) (02/26/20 1:07 AM) (02/25/20 3:30 AM) Calcium Lvl [8.5-10.5 8.7 mg/dL 8.7 mg/dL 9.0 mg/dL mg/dL] (02/27/20 12:52 AM) (02/26/20 1:07 AM) (02/25/20 3:30 AM) CHD Risk [3.90-5.80] 2.85 *LOW* (02/17/20 12:10 PM) Chol [<=199 mg/dL] 154 mg/dL (02/17/20 12:10 PM) Total CK [12-191 25 unit/L unit/L] (02/17/20 12:10 PM) Chloride Lvl [95-109 111 mEq/L 112 mEq/L 111 mEq/L mEq/L] *HI* *HI* *HI* (02/27/20 12:52 AM) (02/26/20 1:07 AM) (02/25/20 3:30 AM) CO2 [24-32 mEq/L] 27 mEq/L 23 mEq/L 24 mEq/L (02/27/20 12:52 AM) *LOW* (02/25/20 3:30 AM) (02/26/20 1:07 AM) Creatinine Lvl 0.96 mg/dL 0.74 mg/dL 0.75 mg/dL [0.50-1.40 mg/dL] (02/27/20 12:52 AM) (02/26/20 1:07 AM) (02/25/20 3:3 0 AM) D-Dimer 0.96 ug/mL FEU 0.68 ug/mL FEU *NA* *NA* (02/19/20 9:22 AM) (02/18/20 4:08 AM) Eosinophils [0.0-4.0 0.3 % 0.1 % 0.1 % %] (02/27/20 12:52 AM) (02/26/20 1:07 AM) (02/25/20 3:30 AM) Fibrinogen Lvl 159 mg/dL 175 mg/dL 158 mg/dL 158 mg/dL [230-510 mg/dL] *LOW* *LOW* *LOW* *LOW* (02/25/20 3:30 AM) (02/23/20 1:25 AM) (02/21/20 3:21 AM) (02/21/20 3:21 AM) Globulin [2.7-4.2 3.4 g/dL g/dL] (02/15/20 9:49 PM) Glucose Lvl [70-99 176 mg/dL 253 mg/dL 257 mg/dL mg/dL] *HI* *HI* *HI* (02/27/20 12:52 AM) (02/26/20 1:07 AM) (02/25/20 3:30 AM) Hct [36.0-48.0 %] 29.8 % 29.3 % 31.0 % *LOW* *LOW* *LOW* (02/27/20 12:52 AM) (02/26/20 1:07 AM) (02/25/20 3:30 AM) HDL [>=61 mg/dL] 54 mg/dL *LOW* (02/17/20 12:10 PM) Hgb [12.0-16.0 g/dL] 9.2 g/dL 9.0 g/dL 9.6 g/dL *LOW* *LOW* *LOW* (02/27/20 12:52 AM) (02/26/20 1:07 AM) (02/25/20 3:30 AM) Hypochrom [None Seen] 1+ (02/22/20 10:43 AM) INR [0.85-1.17] 1.10 1.10 1.11 (02/21/20 3:21 AM) (02/19/20 9:22 AM) (02/19/20 9:22 AM) Potassium Lvl 4.3 mEq/L 4.3 mEq/L 4.1 mEq/L [3.5-5.1 mEq/L] (02/27/20 12:52 AM) (02/26/20 1:07 AM) (02/25/20 3:30 AM) Lactic Acid Lvl 1.7 mMol/L 3.8 mMol/L 2.9 mMol/L [0.5-2.2 mMol/L] (02/22/20 3:57 AM) *HI* *HI* (02/21/20 11:33 PM) (02/21/20 7:49 PM) LDL (Calculated) 69 mg/dL [<=99 mg/dL] (02/17/20 12:10 PM) Lymphocytes 15.4 % 10.8 % 10.5 % [20.0-40.0 %] *LOW* *LOW* *LOW* (02/27/20 12:52 AM) (02/26/20 1:07 AM) (02/25/20 3:30 AM) MCH [27.0-31.0 pg] 24.1 pg 24.1 pg 24.3 pg *LOW* *LOW* *LOW* (02/27/20 12:52 AM) (02/26/20 1:07 AM) (02/25/20 3:30 AM) MCHC [32.0-36.0 g/dL] 30.9 g/dL 30.6 g/dL 31.0 g/dL *LOW* *LOW* *LOW* (02/27/20 12:52 AM) (02/26/20 1:07 AM) (02/25/20 3:30 AM) MCV [80.0-98.0 fL] 78.2 fL 78.8 fL 78.3 fL *LOW* *LOW* *LOW* (02/27/20 12:52 AM) (02/26/20 1:07 AM) (02/25/20 3:30 AM) Magnesium Lvl 2.2 mg/dL 2.1 mg/dL 1.9 mg/dL [1.8-2.4 mg/dL] (02/27/20 12:52 AM) (02/26/20 1:07 AM) (02/25/20 3:30 AM) Microcyte [None Seen] 1+ 1+ 1+ *ABN* *ABN* *ABN* (02/27/20 12:52 AM) (02/26/20 1:07 AM) (02/25/20 3:30 AM) Monocytes [2.0-12.0 5.7 % 4.4 % 4.5 % %] (02/27/20 12:52 AM) (02/26/20 1:07 AM) (02/25/20 3:30 AM) MPV [7.4-10.4 fL] 9.5 fL 10.1 fL 9.6 fL (02/27/20 12:52 AM) (02/26/20 1:07 AM) (02/25/20 3:30 AM) Sodium Lvl [135-145 141 mEq/L 141 mEq/L 143 mEq/L mEq/L] (02/27/20 12:52 AM) (02/26/20 1:07 AM) (02/25/20 3:30 AM) Path AB Blood Bank Physician Service The patient is a 75 y/o fema le with history of dementia, meningioma s/p resection 10 years ago with VPS, type II diabetes mellitus, HTN, HLD, CAD, hypothyroidism, DJ, seropositive myasthenia gravis (an ti-striated muscle antibodie s), and recent spinal surgery around 3 weeks who presented as a direct transfer from [facility] due to concerns of MG exacerbation. Her historical blood type was doc umented as O-negative from through 08/19/2011, with negative antibody screen until 08/19/2011 when anti-K and anti-big-S red cell alloantibodies were identified. Her blood type was changed to O- positive on 07/29/2012 and th e patient was thought to harbor the partial D phenotype. The patient's transfusion history includes transfusion of two O- negative RBCs on 01/24/2011 and two O-positive RBCs on 12/05/2019. An anti-D is detected in thi s patient's serum. This antibody is directed against D antigen of the "Rh" blood group system. It is typically IgG in nature and forms in response to RBC sensitization via pr ior transfusion or . Anti-D is considered a clinically significant antibody; it has been associated with hemolytic transfusion reactions. The formation of anti-D in this patient previously type d as O-positive on multiple ABO-Rh typings suggests that this patient harbors the partial D phenotype. Incubation of the patient's own red cells with patient's serum shows no reactivity (i.e. auto control is negative). Should RBC transfusion be ne cessary, crossmatch-compatible red cells negative for the D, K, and big-S antigens will be issued. Some difficulty in finding appropriate red cell units is anticipated since only 6.1% of the donor popul ation lack the D, K, and big-S antigens; thus, the Blood Bank should be notified ahead of time if transfusion is anticipated. The patient s electronic medical record has been reviewed for relevant information. I have reviewed the test res ults and concur with the resident, Dr. Doug Warner's, interpretation. CPT: 24495-CW *NA* (02/17/20 12:10 PM) Phosphorus [2.5-4.5 3.3 mg/dL 2.7 mg/dL 2.6 mg/dL mg/dL] (02/27/20 12:52 AM) (02/26/20 1:07 AM) (02/25/20 3:30 AM) Platelet [133-450 110 K/CMM 98 K/CMM 94 K/CMM K/CMM] *LOW* *LOW* *LOW* (02/27/20 12:52 AM) (02/26/20 1:07 AM) (02/25/20 3:30 AM) Segs [45.0-75.0 %] 78.2 % 84.4 % 84.7 % *HI* *HI* *HI* (02/27/20 12:52 AM) (02/26/20 1:07 AM) (02/25/20 3:30 AM) Total Protein 5.8 g/dL [6.4-8.4 g/dL] *LOW* (02/15/20 9:49 PM) PT [12.0-14.7 14.2 seconds 14.2 seconds 14.4 seconds seconds] (02/21/20 3:21 AM) (02/19/20 9:22 AM) (02/19/20 9:22 AM) PTT [22.9-35.8 43.0 seconds 37.8 seconds 37.1 seconds seconds] *HI* *HI* *HI* (02/21/20 3:21 AM) (02/19/20 9:22 AM) (02/19/20 9:22 AM) Coronavirus Not Detected (COVID-19) BRANDON [Not (02/17/20 12:25 PM) Detected] RBC [4.20-5.40 M/CMM] 3.82 M/CMM 3.72 M/CMM 3.96 M/CMM *LOW* *LOW* *LOW* (02/27/20 12:52 AM) (02/26/20 1:07 AM) (02/25/20 3:30 AM) RDW [11.5-14.5 %] 20.2 % 19.6 % 19.5 % *HI* *HI* *HI* (02/27/20 12:52 AM) (02/26/20 1:07 AM) (02/25/20 3:30 AM) Bili Total [0.2-1.3 0.3 mg/dL mg/dL] (02/15/20 9:49 PM) Trig [<=149 mg/dL] 156 mg/dL *HI* (02/17/20 12:10 PM) Thrombin Time 25.6 seconds >100 seconds [15.0-21.2 seconds] *HI* (02/18/20 4:08 AM) (02/19/20 9:22 AM) UA Amorph Jagruti [None Moderate /HPF Seen /HPF] *ABN* (02/15/20 10:29 PM) UA Bacteria [None Occasional /HPF Occasional /HPF Seen /HPF] *NA* *NA* (02/21/20 9:52 PM) (02/15/20 10:29 PM) UA Bili [Negative] Negative Negative *NA* *NA* (02/21/20 9:52 PM) (02/15/20 10:29 PM) UA Blood [Negative] Negative Negative (02/21/20 9:52 PM) (02/15/20 10:29 PM) UA Color [Yellow] Light Yellow Yellow *NA* *NA* (02/21/20 9:52 PM) (02/15/20 10:29 PM) UA Glucose [Negative 500 mg/dL mg/dL] *ABN* (02/21/20 9:52 PM) UA Glucose 150mg/dl *NA* (02/15/20 10:29 PM) UA Hyal Cast [0-2 3 /LPF 3 /LPF /LPF] *HI* *HI* (02/21/20 9:52 PM) (02/15/20 10:29 PM) UA Ketones [Negative Negative mg/dL Negative mg/dL mg/dL] *NA* *NA* (02/21/20 9:52 PM) (02/15/20 10:29 PM) UA Leuk Est Trace Negative [Negative] *ABN* (02/15/20 10:29 PM) (02/21/20 9:52 PM) UA Mucus [None Seen Few /LPF Few /LPF /LPF] *NA* *NA* (02/21/20 9:52 PM) (02/15/20 10:29 PM) UA Nitrite [Negative] Positive Negative *ABN* (02/15/20 10:29 PM) (02/21/20 9:52 PM) UA pH [5.0-8.0] 5.0 7.0 (02/21/20 9:52 PM) (02/15/20 10:29 PM) UA Protein [Negative Negative mg/dL Negative mg/dL mg/dL] (02/21/20 9:52 PM) (02/15/20 10:29 PM) UA RBC [0-2 /HPF] 2 /HPF 1 /HPF (02/21/20 9:52 PM) (02/15/20 10:29 PM) UA Spec Grav 1.015 1.015 [<=1.030] (02/21/20 9:52 PM) (02/15/20 10:29 PM) UA Sq Epi [Few /LPF] Occasional /LPF Few /LPF *NA* *NA* (02/21/20 9:52 PM) (02/15/20 10:29 PM) UA Turbidity [Clear] Slight Marked *ABN* *ABN* (02/21/20 9:52 PM) (02/15/20 10:29 PM) UA Urobilinogen <1.0 mg/dL <1.0 mg/dL [0.1-1.0 mg/dL] (02/21/20 9:52 PM) (02/15/20 10:29 PM) UA WBC [0-5 /HPF] 16 /HPF 1 /HPF *HI* (02/15/20 10:29 PM) (02/21/20 9:52 PM) WBC [3.7-10.4 K/CMM] 19.0 K/CMM 16.9 K/CMM 17.9 K/CMM *HI* *HI* *HI* (02/27/20 12:52 AM) (02/26/20 1:07 AM) (02/25/20 3:30 AM) BB Note Result Note 4 (02/17/20 12:10 PM) Ca Ion WB [1.05-1.25 1.22 mMol/L 1.18 mMol/L 1.17 mMol/L mMol/L] (02/27/20 12:52 AM) (02/26/20 1:07 AM) (02/25/20 3:30 AM) Ca Norm WB [1.05-1.25 1.20 mMol/L 1.17 mMol/L 1.17 mMol/L mMol/L] (02/27/20 12:52 AM) (02/26/20 1:07 AM) (02/25/20 3:30 AM) VLDL 31 *NA* (02/17/20 12:10 PM) Heparin Ab(SRIDEVI) Negative 5 [Negative] (02/24/20 4:43 PM) Pat Od Value .064 *NA* (02/24/20 4:43 PM) Pos CO Value .400 *NA* (02/24/20 4:43 PM) 1Result Comment: The eGFR is calculated [...] by the estimated BMI.4Result Comment: 02/17/2020 14:11 [id number] "Significant Findings of Positive Antibody Screen_ called to _Bryant Keen_ at _02/17/2020 14:11_ by _MG_. Read Back OK"5Result Comment: This assay detects heparin antibodies of IgG isotype. Antibodies of other isotypes have been reported to cause heparin-induced thrombocytopenia. Therefore, if there is a strong clinicalsuspicion of HIT, additional study with a serotonin release assay is recommented.Microbiology Reports TEST:Culture: Urine STATUS:Auth (Verified) BODY SITE: SOURCE:Urine, Clean Catch COLLECTED DATE/TIME:02/21/20 11:08 PMFINAL REPORT10,000 - 50,000 CFU/mL Enterobacter cloacae . 10,000 - 50,000 CFU/mL Skin Era ORGANISM:Enterobacter cloacae Immunizations Not Given Vaccine Date Status Refusal [...] 02/15/20 Assessment and Plan Extracted from: Title: Neurology Progress Note Author: Marlen Parra MD Date: 02/25/20 Neurology Progress Note Subjective: Patient feeling much better today, voice is stronger. Patient feeling well, eating breakfast. HPI: Mrs. Franci Lange is a 75 y/o patient w ith history of dementia, meningioma s/p resection 10 years ago with VPS, diabetes type 2, HTN, HLD, CAD, HFrEF 50%, hypothyroidism, JD, seropositive myasthenia gravis (anti-striated muscle antibodies) , and recent spinal surgery around 3 weeks who presented as a direct transfer from [facility] due to concerns of MG exacerbation. She initially presented one week ago to [facility] wit h hypoglicemia and was found to have PNA. She completed antibiotics (Cefuroxime and Clynda per external Rx) and was discharged 5 days ago with PT. Per , t he next day of her discharged she sudden ly developed trouble standing due to lower extremity weakness, hypophonia and dysarthria. She didn't have any respiratory problems. She was brought back to [facility] where she was evaluated by Neurol pat and didn't think that it was a MG exacerbation so patient's family requested transfer to [facility]. At [facility] patient had MBST which showed severe dysphagia. Cu rrently, patient has no dysarthria but c ontinuos with hypophonia. She denies any SOB. Due to her dementia she is a poor historian but denies any weakness. Hospital course: 02/15: unable to obtain IV access, [facility] 02/16: plex day 06/05 02/17: no acute events overnight, NIF/FVC improving 02/18: Overnight elevated glucose readin gs started on glargine. Plex day 07/06 02/19: NIF/FVC stable 02/20: [...] Unable to obtain as patient did not coop orate Allergies: Adhesive Tape, Cortizone-10 , PHENobarbi marcelle [...] (Last four charted values) WBC H 17.9 (FEB 24) H 1 7.1 (FEB 23) H 23.1 (FEB 21) H 23.7 (FEB 21) Hgb L 9.6 (FEB 24) L 9. 3 (FEB 23) L 10.1 (FEB 21) L 10.7 (FEB 21) Hct L 31.0 (FEB 24) L 3 0.5 (FEB 23) L 32.8 (FEB 21) L 34.5 (FEB 21) Plt L 94 (FEB 24) L 88 (FEB 23) L 101 (FEB 21) L 106 (FEB 21) Na 143 (FEB 24) 143 (S EP ) 143 (FEB 21) 138 (FEB 20) K 4.1 (FEB 24) 4.0 (S EP ) 3.7 (FEB 21) 4.4 (FEB 20) CO2 24 (FEB 24) 24 (FEB 23) L 23 (FEB 21) 26 (FEB 20) Cl H 111 (FEB 24) H 11 3 (FEB 23) H 110 (FEB 21) 107 (FEB 20) Cr 0.75 (FEB 24) 0.80 (FEB 23) 1.18 (FEB 21) 1.10 (FEB 20) BUN 16 (FEB 24) 16 (FEB 23) 22 (SEP 23) 20 (FEB 20) Glucose Random H 257 (FEB 24) H 1 52 (FEB 23) H 154 (FEB 21) C 452 (FEB 20) Mg 1.9 (FEB 24) 1.9 (S EP 25) 2.1 (FEB 21) 2.2 (FEB 20) Phos 2.6 (FEB 24) 2.7 (S EP 25) 4.4 (FEB 21) 2.8 (FEB 20) Ca 9.0 (FEB 24) 8.6 (S EP 25) 8.7 (SEP ) 8.6 (SEP ) PT 14.2 (SEP ) 14.2 (SEP 20) 14.4 (SEP 20) H 17.5 (SEP ) INR 1.10 (SEP ) 1.11 (SEP 20) 1.10 (SEP 20) H 1.42 (SEP 19) PTT H 43.0 (SEP ) H 3 7.1 (SEP 20) H 37.8 (SEP 20) H 82.9 (SEP ) Total CK 25 (FEB 16) Medications (33) Active Scheduled Meds (15): 02/17/20 clonazePAM 0.25 mg PO Q8H 02/21/20 (Suspended) furosemide (furose mide 20 mg oral tablet) 20 mg GT Daily 02/25/20 heparin 5,000 unit SUB-Q Q12H 02/22/20 insulin glargine 15 unit SUB-Q BID 0 ml/hr 02/22/20 (Suspended) insulin lispro 3 u nit SUB-Q TID-Before Meals 02/17/20 levothyroxine 88 microgram PO Q 630AM 02/19/20 lidocaine topical (lidocaine to pical patch (5% film)) 1 patch TOP Daily 02/17/20 lisinopril 5 mg GT Daily 02/16/20 predniSONE 20 mg PO Daily 02/20/20 pregabalin (Lyrica) 25 mg PO Q8 H-01 02/19/20 remove patch 1 patch TOP Bedtim e 02/18/20 rosuvastatin 10 mg PO Bedtime 02/17/20 sertraline 25 mg GT Daily 02/22/20 sulfamethoxazole-trimethoprim ( Bactrim DS 800 mg- 160 mg oral tablet) 1 tab PO [id number] 02/17/20 thiamine 200 mg PO Daily Unscheduled Meds: None PRN Meds (14): 02/21/20 Dextrose 50% in Water IV (D-50- W) 12.5 gm IVP PRN 02/21/20 Dextrose 50% in Water IV (D-50- W) 25 gm IVP PRN 02/17/20 acetaminophen (Tylenol) 650 mg PO Q8H 02/16/20 clonazePAM 0.5 mg PO BID 02/21/20 glucagon 1 mg IM PRN 09/22/20 insulin lispro 2 unit SUB-Q TID -Before Meals 02/21/20 insulin lispro 4 unit SUB-Q TID -Before Meals 02/21/20 insulin lispro 6 unit SUB-Q TID -Before Meals 02/21/20 insulin lispro 8 unit SUB-Q TID -Before Meals 02/21/20 insulin lispro 10 unit SUB-Q TI D-Before Meals 02/21/20 insulin lispro 1 unit SUB-Q Bed time 02/21/20 insulin lispro 2 unit SUB-Q Bed time 02/21/20 insulin lispro 3 unit SUB-Q Bed time 02/21/20 insulin lispro 4 unit SUB-Q Bed time One Time Meds (3): 02/25/20 (Completed) albumin [...] 5/5 strength in bilateral biceps/ triceps/deltoid, hand coper hand 5/5, AG in b/l lower extremities no drift Gait:Deferred EKG: Reviewed previous EKG - Sinus rhyth m Imaging: Chest 1view DX 02/21/20 21:17:03 IMPRESSION: Decreased atelectasis in the left lower lung, and no new abnormality in the chest. Signed By: Sachi Villaseñor MD A&P: Mrs. Lange is a 75 y/o [...] of 5 sessions, and she has completed 4/5 so far with objective improvement i n respiratory function as well as hypophonia. 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 MG Exacerbation - Weakness likely multifactorial 2/t [...] -May consider repeat imaging pending PLE X if no improvements in strength Lower extremity [...] - likely from chronic steroid use vs ne w infection - UA with 16 WBC and leukocyte esterase/ nitrites - Start bactrim DS 02/21 (no dose adjust ment necessary as CrCl 56) Nutrition Obesity BMI 35 with Hypertension and or DM - Dietitian consult Prophylaxis DVT: Heparin SubQ GI: None Bowel regimen: Docusate Senna Diet: dysphagia chopped with nectar thic k liquids, 1:1 meal assistance Code Status: Full Code Dispo: SNF vs back [facility]assisted living with home health PT/OT/BAG PRESS OPERATOR Marlen Parra MD PGY-2 | Neurology [facility] CPT: 48248 DX: G70.01 I have examined this patient with the re sident, Dr. Parra, and agree with the documentation and findings as recorded. I concur with the plan as outlined. 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 We are consulted to assistformanagem ent ofhyperglycemiaand other general medical issues. 1.Myasthenia gravis in crisis(G70.01 ) currently on prednisone and undergoing P EDIL 2.DM2 (diabetes mellitus, type 2)(E 11.9) no further hypoglycemia poor appetite would do 15units BID if appetite is impr oving. if NPO for procedure, can half dose ISS 3.Hypertension(I10) contlisinopril 5 mg daily 4.Hyperlipidemia(E78.5) 5.CAD (coronary artery disease)(I25 .10) recs starting asa crestor 6.Systolic and diastolic CHF, chronic (I50.42) not in exacerbation hold lasix for now due to poor intake watch for sign of fluid overload 7.Hypothyroidism(E03.9) cont synthroid 8.JD (obstructive sleep apnea)(G47 .33) Hospitalist service signs off. please r econsult as needed Dr. Akash Lamar (Noemi)[facility] Hospitalist Medicine Please contact me via [employer] Extracted from: Title: General Neurology HPI Author: Sanchezraimundo Pritchett [place] Date: 02/15/20 Janice DANG Neurology H&P Chief [...] as a direct transfer from [facility] due to concerns of MG exacerbation. She initially presented one week ago to [facility] with hypoglicemia and was found to have PNA. She completed antibiotics (Cefuroxime and Clynda per external Rx) and was discharged 5 days ago with PT. Per , th e next day of her discharged she suddenl y developed trouble standing due to lower extremity weakness, hypophonia and dysarthria. She didn't have any respiratory problems. She was brought back to [facility] where she was evaluated by Neurolo gy and didn't think that it was a MG exacerbation so patient's family requested transfer to [facility]. At [facility] patient had MBST which showed [...] 4/5 Tricep 4+/5 4+/5 Bicep 5/5 5/5 Converting Supervisor 5/5 5/5 Iliopsoas 4/5 4/5 Quadricep 4/5 [...] so family would like to avoid IVIG. 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 MG Exacerbation - Monitor closely - NIF, FVC q3-6 hours - Continue home pyridostigmine 60mg q8H - Resume home prednisone 20mg daily - Incentive spirometery - Continue home CPAP at night Dysphagia - NPO per speech therapy - Pending MBS - Can give meds in puree/pudding per BAG PRESS OPERATOR PSYCH Depression Anxiety - Continue home sertraline [...] consult Marlen Parra MD PGY-2 | Neurology [facility] Neurology staff Teaching physician statement I reviewed the residents note, personall y reviewed all the patient s labs and imaging studies and personally performed a complete neurological exam. I discussed the assessment and plan of care and agr ee with the plan as outlined in the lyudmila law's note. David Macedo DO [facility], Neurohospitalist Forestry Aid Technician of Neurology
--- OUTSIDE RECORDS SUMMARY | 2020-03-16 10:06 | XMS REPORT | Summary of Care ---
:1945 Author Organization [facility] Address [address] [place] [phone] Encounter HQ Tomy(FIN) [phone] Date(s): 11/22/19 - 12/20/[address] Professional Services provided by [facility] [place] [address]- Encounter Diagnosis Central cord syndrome at C7 level of cervical spinal cord, initial encounter (Final) - Unspecified fracture of fourth thoracic vertebra, initial encounter for closed fracture (Final) - Contusion of other specified intrathoracic organs, initial encounter (Final) - Unspecified fracture of second lumbar vertebra, initial encounter for closed fracture (Final) - Chronic systolic (congestive) heart failure (Final) - Delirium due to known physiological condition (Final) - Acute posthemorrhagic anemia (Final) - Hydrocephalus, unspecified (Final) - Unspecified protein-calorie malnutrition (Final) - Body mass index (BMI) 40.0-44.9, adult (Final) - Ventricular tachycardia (Final) - Alkalosis (Final) - Encephalopathy, unspecified (Final) - Gastrointestinal hemorrhage, unspecified (Final) - Unspecified displaced fracture of sixth cervical vertebra, initial encounter for closed fracture (Final) - Unspecified displaced fracture of seventh cervical vertebra, initial encounter for closed fracture (Final) - Unspecified displaced fracture of fourth cervical vertebra, initial encounter for closed fracture (Final) - Myasthenia gravis without (acute) exacerbation (Final) - Hypothyroidism, unspecified (Final) - Old myocardial infarction (Final) - Age-related osteoporosis without current pathological fracture (Final) - Hypertensive heart disease with heart failure (Final) - Dysphagia, unspecified (Final) - Atherosclerotic heart disease of [place] coronary artery without angina pectoris (Final) - Physical restraint status (Final) - Unspecified dementia without behavioral disturbance (Final) - nursing home (current) use of systemic steroids (Final) - Hypokalemia (Final) - Obstructive sleep apnea (adult) (pediatric) (Final) - Other disorders of phosphorus metabolism (Final) - Constipation, unspecified (Final) - Fall on same level from slipping, tripping and stumbling without subsequent striking against object,initial encounter (Final) - Other acute postprocedural pain (Final) - Acute pain due to trauma (Final) - Major depressive disorder, single episode, unspecified (Final) - Abrasion of right upper arm, initial encounter (Final) - Type 2 diabetes mellitus with hyperglycemia (Final) - Morbid (severe) obesity due to excess calories (Final) - Type 2 diabetes mellitus with hypoglycemia without coma (Final) - Hyperlipidemia, unspecified (Final) - Chronic obstructive pulmonary disease, unspecified (Final) - Hypomagnesemia (Final) - Unqualified visual loss, right eye, normal vision left eye (Final) - Atherosclerosis of aorta (Final) - Spinal stenosis, cervical region (Final) - Repeated falls (Final) - Laceration without foreign body of right forearm, initial encounter (Final) - Presence of cerebrospinal fluid drainage device (Final) - Personal history of sudden cardiac arrest (Final) - History of falling (Final) - Family history of diabetes mellitus (Final) - Personal history of benign neoplasm of the brain (Final) - Other [place] [facility] (current) drug therapy (Final) - Discharge Disposition: Home or Self Care Attending [...] hyperglycemia(Confirmed) Diabetes type 2, Active uncontrolled(Confirmed) 1right [id number] Allergies, Adverse Reactions, Alerts Substance Reaction Severity Status penicillins1 rash Active ciprofloxacin Active erythromycin2 Active phenobarbital rash Active gabapentin3 Active aspirin4 severe chest pain Active immune globulin intravenous5 Act kimberly cefepime Active Cortizone-10 Active Adhesive Tape6 Active PHENobarbital7 Active 1Data migrated from [employer] on 01/22/15. Originally documented as PCN.2Data migrated from [employer] on 01/22/15. Originally documented as ERYTHROMYCIN.3 [id number] migrated from [employer] on 01/22/15. Originally documented as ASPIRIN.5Husband called hospital on 12/06/19 and stated that the pt was allergic to [id number] migrated from [employer] on 08/01/15. Originally [...] 12/22/19 19:00:00 CDT, 0 Notes: (Same as: Duoneb) Start Date: 11/23/19 Stop Date: 12/05/19 Status: Discontinuedalbuterol-ipratropium 2.5-0.5 mg inhalation solution 3 mL, Route: NEB, Drug Form: SOLN, Dosing Weight 90, kg, RQ6H, PRN as needed for shortness of breathor wheezing, Start date: 12/12/19 16:35:00 CDT, Duration: 30 day, Stop date: 01/11/20 16:34:00 CDT, 0 Notes: (Same as: Duoneb) Start Date: 12/12/19 Stop Date: 12/20/19 Status: [...] Daily, # 30 tab, 0 Refill(s), Pharmacy: [facility]/pharmacy #[id number], 149.86, cm, 12/06/19 15:12:00 CDT, Height, [...] BID, 0 Refill(s) Start Date: 11/24/19 Status: [id number] (bolus) IV 12.5 gm, 25 mL, Route: IVP, Drug Form: INJ, Dosing Weight 90, kg, PRN, PRN Blood Glucose Results, Start date: 12/19/19 8:18:00 CDT, Duration: 30 day, Stop date: 01/18/20 8:17:00 CDT, 0 Start Date: 12/19/19 Stop Date: 12/20/19 Status: [id number] (bolus) IV 25 gm, 50 mL, Route: IVP, Drug Form: INJ, Dosing Weight 90, kg, PRN, PRN Blood Glucose Results, Start date: 12/19/19 8:18:00 CDT, Duration: 30 day, Stop date: 01/18/20 8:17:00 CDT, 0 Start Date: 12/19/19 Stop Date: 12/20/19 Status: [id number] (bolus) IV 12.5 gm, 25 mL, Route: IVP, Drug Form: INJ, Dosing Weight 90, kg, PRN, PRN Blood Glucose Results, Start date: 12/19/19 8:19:00 CDT, Duration: 30 day, Stop date: 01/18/20 8:18:00 CDT, 0 Start Date: 12/19/19 Stop Date: 12/20/19 Status: [id number] (bolus) IV 25 gm, 50 mL, Route: [...] 0.3 mL, Route: SUB-Q, Drug form: INJ, [id number], Dosing Weight 100, kg, (For Patients CrCl [...] once for up to 12 hours in o01-mlmz period (12 hours on and 12 hours [...] 0.3 mL, Route: SUB-Q, Drug form: INJ, [id number], Dosing Weight 90, kg, Start date: 12/11/19 18:00:00 CDT, Duration: 30 day, Stop date: 01/10/20 6:00:00 CDT, 0 Notes: (Same as: Lovenox) Start Date: 12/11/19 Stop Date: 12/20/19 Status: DiscontinuedLovenox 30 mg, 0.3 mL, Route: SUB-Q, Drug form: INJ, [id number], Dosing Weight 90, kg, Start date: 12/10/19 21:00:00 CDT, Duration: 30 day, Stop date: 01/09/20 9:00:00 CDT, 0 Notes: (Same as: Lovenox) Start Date: 12/10/19 Stop Date: 12/20/19 Status: DiscontinuedLovenox 30 mg, 0.3 mL, Route: SUB-Q, Drug form: INJ, [id number], Dosing Weight 90, kg, Priority: NOW, Start date: 11/23/19 11:42:00 CDT, Duration: 30 day, Stop date: 12/23/19 4:00:00 CDT, 0 Notes: (Same as: Lovenox) Start Date: 11/23/19 Stop Date: 12/05/19 Status: DiscontinuedLovenox 30 mg, 0.3 mL, Route: SUB-Q, Drug form: INJ, [id number], Dosing Weight 90, kg, Start date: 12/06/19 [...] 01/14/20 9:00:00 CDT, 0 Notes: (Same as: Phos-NaK) Each 1.5 gm pkt has 250mg phosphorous. [...] being intubated (unless the nurse is a TRAVELING AUDITOR). Same as:Diprivan Start Date: 12/05/19 Stop Date: [...] 12/24/19 21:00:00 CDT, 0 Notes: (Same as: Darwin) Start Date: 11/25/19 Stop Date: 12/20/19 Status: Discontinuedsenna 17.2 mg, 2 tab, Route: PO, Drug Form: TAB, Dosing Weight 90, kg, Q12H, STAT, Start date: 11/23/19 7:53:00 CDT, Duration: 30 day, Stop date: 12/22/19 21:00:00 CDT, 0 Notes: (Same as: Darwin) Start Date: 11/23/19 Stop Date: 11/25/19 Status: [...] Vancocin)Infusion rate< 1000 mg: infuse over 1 [id number] - 1500 mg: infuse over 1.5 [id number] - 2000 mg: infuse over 2 hours> [...] 7:20 A M) (12/18/19 5:06 AM) UA Gregory Yeast [None Seen Occasional /HPF /HPF] *ABN* [...] 4:18 AM) 1Result Comment: Large platelets are [id number] Comment: The eGFR is calculated using the [...] wit h PMH dementia, HTN, obesity, T2DM, NM with prior cardiac arrest 35 years ago, [...] of 12/05 and transferred to IMU that [facility] under hospitalist care. Course further complicated by [...] as other placementversusPEG tube. 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 Past Surgical History: ACCOUNTING CLERK shunt placement Tonsillectomy Cervical laminectomy Recent C5-6 ACDF and C6-7 laminectomy wi th C5-T1 posterior spinal fusion on 12/06/2019 Family Medical History: Father: Heart attack; High blood pressur e Mother: High blood pressure Grandparent: Crohn's disease; Type 2 myron betes mellitus Social History: Patient is and her and mary anne vaughn participate in her care. She lives [...] HEENT: Bruising on face and neck/shoul ders. Fulton J collar in place. LUNGS: Clear to [...] Neck flexion/extension was not testable because of Fulton J collar. Motor: With significant encouragement, zheng flower is able to maintain all 4 extremities [...] (J UL 13) 183 (DEC 10) 159 (NOV 11) Na 139 (DEC 12) 139 (J UL 13) 142 (NOV 12) 142 (DEC 10) K L 3.4 (DEC 12) L 3. 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 Coy. Please [place] [phone] with any questions. Emmanuel Thayer MD PGY-3, Neurology MSO# [id number] [employer] [facility] [employer] THE FOLLOWING WERE PRESENT ON INITIAL SESSMENT: [employer]ENO[employer]HER [employer] -Myasthenia gravis, C7 cervical fr acture from [...] decreases to any degree please reconsult neurology ([id number]) to discuss cristian sma exchange. Patient's called [facility] on 12/06/2019 to advise that she [...]
[2020-03-16 10:14] LABS: Basophils % 1.1 % (0-1.3); Hematocrit 32.4 % (36.0-45.0); Lymphocytes % 13.2 % (15.3-44.8); MPV 8.7 fL (7.6-11.3); RBC Red Blood Cell Count 4.21 M/uL (3.86-4.86)
[2020-03-16 10:23] LABS: Protime INR 0.99
--- NOTE | 2020-03-16 10:35 | RAD REPORT ---
EXAM DESCRIPTION: Adityat Single View03/16/2020 10:17 am CLINICAL HISTORY: Shortness of breath COMPARISON: January 2020 FINDINGS: The lungs appear clear of acute infiltrate. The heart is mildly enlarged. Central venous catheter is unchanged in position. The tip may lie within the left brachiocephalic vein IMPRESSION: No acute abnormalities displayed
[2020-03-16 10:37] LABS: Albumin 2.8 g/dL (3.4-5.0); Bilirubin Total 1.4 mg/dL (0.2-1.0); CKMB Creatine Kinase MB 1.7 ng/mL (0.3-3.6); Potassium 3.6 mmol/L (3.5-5.1); Protein, Total 6.4 g/dL (6.4-8.2); Troponin (Emerg Dept Use Only) 0.02 ng/mL (0.0-0.045)
--- OUTSIDE RECORDS SUMMARY | 2020-03-16 10:45 | XMS REPORT | Continuity of Care Document ---
:1945 Author Organization [facility] t Address [address] [place]. [address] [place] [id number] Care Team Providers Name Role Phone Ayush Scott Primary Care Physician Giovani Miguel Attending Clinician Socorro Schafer MD Attending Clinician Stacia Reece MD Attending Clinician Bill Paez MD Attending Clinician Harley DANG Attending Clinician Donnell Macedo Attending Clinician SOCORRO SCHAFER Attending Clinician Unavailable Natasha Fernandez Attending Clinician NOELLE Attending Clinician Unavailable Estella Calvin Attending Clinician Bobby Carrasco Attending Clinician Chris Jim Attending Clinician Lyric Attending Clinician Charis Pierce Attending Clinician Noelle Attending Clinician Luis Coy Attending Clinician Yasir Cortés Attending Clinician SOSA NDIAYE Attending Clinician Unavailable Donnell Macedo Admitting Clinician Stacia REECE Admitting Clinician Unavailable Asim Christopher Admitting Clinician Chris Jim Admitting Clinician Luis Coy Admitting Clinician Alyx Hanley Admitting Clinician Yasir Cortés Admitting Clinician SOSA NDIAYE Admitting Clinician Unavailable Payers Payer Name Policy Type Policy Number Effective Date Expiration Date S starr AETNA - MEDICARE [id number] 2013 YELITZA Amanda ukes MGD CAREAETNA 00:00:00 - Medical MEDICARE HMO POS Center [id number] [facility] [id number] CDC REVIEWCDC [id number] [facility] s [id number] 00:00:00 - Medica l 05/[place] [address] Problems Condition Condition Condition Status Onset Resolution Last Treating Co mments Source Name Details Category Date Date Treatment Clinician Date MYASTHENIA Diagnosis Active 2020-03-01 Memoria GRAVIS 02-14 21:46:00 l WITH ACUTE 00:00: Berto gomez EXACERBATI MYASTHENIA 00 O GRAVIS WITH ACUTE EXACERBATI O Active 02/15/2020 [facility] Myasthenia Myasthenia Disease Active [facility] [place] [facility] - with acute with acute 00:00: Me dical exacerbati exacerbati 00 Ce nter on on C-7,T-4 Diagnosis Active 2019-12-14 Me moria FX,ESOPHAG - 09:22:00 l EAL TEAR C-7,T-4 03:51: Gerda nn FX,ESOPHAG 00 EAL TEAR Active 11/21/2019 [facility] MYASTHENIA Diagnosis Active 2019-03-10 Memoria GRAVIS 02-05 22:12:00 l WEAKNESS 00:00: Jorge Alberto MYASTHENIA 00 GRAVIS WEAKNESS Active 02/05/2019 [facility] MYASTHENIA Diagnosis Active 2019-01-04 Memoria GRAVIS 12-24 08:31:00 l 00:00: Jorge Alberto MYASTHENIA 00 GRAVIS Active 12/24/2018 [facility] DIABETIC Diagnosis Active 2018-12-08 M emoria 7-01 05:43:00 l DIABETIC 00:00: Berto n 00 Active 11/29/2018 [facility] DYSPHAGIA Diagnosis Active 2018-09-30 Memoria 4-11 08:27:00 l 00:00: Jorge Alberto DYSPHAGIA 00 Active 09/09/2018 [facility] RESOLVED Diagnosis Active 2018-09-22 M emoria VISION 4-10 15:15:00 l LOSS IN RESOLVED 00:00: Gerda nn LEFT EYE VISION 00 LOSS IN LEFT EYE Active 09/08/2018 [facility] SLURRED Diagnosis Active 2018-08-26 Me moria SPEECH 3-18 22:20:00 l SLURRED 00:00: [place] SPEECH 00 Active 08/16/2018 [facility] STROKE Diagnosis Active 2018-08-16 Mem oria SYMPTOMS 3-18 20:18:00 l STROKE 00:00: Jorge Alberto SYMPTOMS 00 Active 08/16/2018 [facility] Trigger Trigger Disease Active [facility] finger finger 9[facility]15 [facility] Benign Problem Active 2018-12-01 Memor ia neoplasm 1-14 21:28:18 l of Benign 00:00: [place] cerebral neoplasm 00 meninges of (disorder) cerebral meninges (disorder) Active 06/14/2012 Problem 12/01/2018 Data migrated from [facility] on 01/23/15. Julia Neuro,[facility], Natasha [facility] BAD Diagnosis Active 2010-062011-03-22 Mem oria REACTION 0-22 06:07:00 l TO BAD 00:00: Jorge Alberto MEDICATION REACTION 00 TO MEDICATION Active 03/22/2011 [facility] DEHYDRATIO Diagnosis Active 2010-062011-03-27 Memoria N,PAIN 0-22 13:56:00 l CONTROL 00:00: [place] DEHYDRATIO 00 N,PAIN CONTROL Active 03/22/2011 [facility] LEG CRAMPS Diagnosis Active 2010-062011-03-14 Memoria 0- 04:56:00 l LEG 00:00: Jorge Alberto CRAMPS 00 Active 03/13/2011 [facility] DEHYDRATIO Diagnosis Active 2010-062011-03-17 Memoria N 0-13 12:08:00 l 00:00: [place] DEHYDRATIO 00 N Active 03/13/2011 [facility] SDH Diagnosis Active 2011-03-20 Mem oria 02-24 21:57:00 l SDH 06:00: Jorge Alberto 00 Active 02/24/2011 Rehabilita tion DM - Problem Active 2011-03-27 Memor ia Diabetes 02-18 08:54:23 l mellitus DM - 00:00: Jorge Alberto Diabetes 00 mellitus Active 02/18/2011 Problem 03/27/2011 [facility] HYDROCEPHA Diagnosis Active 2011-03-05 Memoria TANJA 01-31 21:52:00 l 00:00: Jorge Alberto HYDROCEPHA 00 TANJA Active 01/31/2011 [facility] BRAIN MASS Diagnosis Active 2011-02-20 Memoria 01-30 14:11:00 l BRAIN 06:00: Jorge Alberto MASS 00 Active 01/30/2011 Rehabil[facility] tion BRAIN Diagnosis Active 2011-02-04 Mem oria MASS/AWAKE 01-23 11:31:00 l BRAIN 00:00: Jorge Alberto MASS/AWAKE 00 Active 01/23/2011 [facility] LIFE Diagnosis Active 2011-02-20 Mem oria FLIGHT 01-23 14:11:00 l LIFE 00:00: [place] FLIGHT 00 Active 01/23/2011 [facility] Increased Increased Problem Active [facility] vers [...] [facility] Osteopenia Osteopenia [facility] Pneumonia Pneumonia Problem [facility] Arthritis Arthritis [...] d Illness, Berto n unspecifie d 09/11/2018 [facility] Myasthenia Problem 2019-12-26 M emoria gravis 07:49:25 l without Jorge Alberto (acute) Myasthenia exacerbati gravis on without (acute) exacerbati on 12/26/2019 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 Unspecifie Problem 2019-12-26 M emoria d fracture 07:49:25 l of fourth Jorge Alberto thoracic Unspecifie vertebra, d fracture initial of fourth encounter thoracic for closed vertebra, fracture initial encounter for closed fracture 12/26/2019 [facility] Contusion Problem 2019-12-26 Me moria of other 07:49:25 l specified Jorge Alberto intrathora Contusion cic of other organs, specified initial intrathora encounter cic organs, initial encounter 12/26/2019 [facility] Unspecifie Problem 2019-12-26 M emoria d fracture 07:49:25 l of second Jorge Alberto lumbar Unspecifie vertebra, d fracture initial of second encounter lumbar for closed vertebra, fracture initial encounter for closed fracture 12/26/2019 [facility] Chronic Problem 2019-12-26 Kalia aida systolic 07:49:25 l (congestiv Chronic Her restrepo e) heart systolic failure (congestiv e) heart failure 12/26/2019 [facility] Delirium Problem 2019-12-26 Mem oria due to 07:49:25 l known Delirium Berto n physiologi due to roger known condition physiologi roger condition 12/26/2019 [facility] Acute Problem 2019-12-26 Memor ia posthemorr 07:49:25 l hagic Acute Jorge Alberto anemia posthemorr hagic anemia 12/26/2019 [facility] Hydrocepha Problem 2019-12-26 M emoria tajna, 07:49:25 l unspecifie Berto n d Hydrocepha tanja, unspecifie d 12/26/2019 [facility] Unspecifie Problem 2019-12-26 M emoria d 07:49:25 l protein-ca Berto n bry Unspecifie malnutriti d on protein-ca bry malnutriti on 12/26/2019 [facility] Body mass Problem 2019-12-26 Me moria index 07:49:25 l (BMI) Body [place] 40.0-44.9, mass index adult (BMI) 40.0-44.9, adult 12/26/2019 [facility] Ventricula Problem 2019-12-26 emoria r 07:49:25 l tachycardi Berto n a Ventricula r tachycardi a 12/26/2019 [facility] Alkalosis Problem 2019-12-26 Al moria 07:49:25 l [place] Alkalosis 12/26/2019 [facility] Encephalop Problem 2019-12-26 M emoria athy, 07:49:25 l unspecifie Berto n d Encephalop athy, unspecifie d 12/26/2019 [facility] Gastrointe Problem 2019-12-26 M emoria stinal 07:49:25 l hemorrhage Berto n , Gastrointe unspecifie stinal d hemorrhage , unspecifie d 12/26/2019 [facility] Unspecifie Problem 2019-12-26 M emoria d 07:49:25 l displaced [place] fracture Unspecifie of sixth d cervical displaced vertebra, fracture initial of sixth encounter cervical for closed vertebra, fracture initial encounter for closed fracture 12/26/2019 [facility] Unspecifie Problem 2019-12-26 M emoria d 07:49:25 l displaced [place] fracture Unspecifie of seventh d cervical displaced vertebra, fracture initial of seventh encounter cervical for closed vertebra, fracture initial encounter for closed fracture 12/26/2019 [facility] Unspecifie Problem 2019-12-26 M emoria d 07:49:25 l displaced Jorge Alberto fracture Unspecifie of fourth d cervical displaced vertebra, fracture initial of fourth encounter cervical for closed vertebra, fracture initial encounter for closed fracture 12/26/2019 [facility] Hypothyroi Problem 2019-12-26 M emoria dism, 07:49:25 l unspecifie Berto n d Hypothyroi dism, unspecifie d 12/26/2019 [facility] Old Problem 2019-12-26 Memor ia myocardial 07:49:25 l infarction Old Berto n myocardial infarction 12/26/2019 [facility] Age-relate Problem 2019-12-26 M emoria d 07:49:25 l osteoporos Berto n is without Age-relate current d pathologic osteoporos al is without fracture current pathologic al fracture 12/26/2019 [facility] Hypertensi Problem 2019-12-26 M emoria ve heart 07:49:25 l disease [place] with heart Hypertensi failure ve heart disease with heart failure 12/26/2019 [facility] Dysphagia, Problem 2019-12-26 M emoria unspecifie 07:49:25 l d [place] Dysphagia, unspecifie d 12/26/2019 [facility] Atheroscle Problem 2019-12-26 M emoria rotic 07:49:25 l heart [place] disease of Atheroscle shawnee rotic coronary heart artery disease of without shawnee angina coronary pectoris artery without angina pectoris 12/26/2019 [facility] Physical Problem 2019-12-26 Mem oria restraint 07:49:25 l status Physical Berto n restraint status 12/26/2019 [facility] Unspecifie Problem 2019-12-26 M emoria d dementia 07:49:25 l without Jorge Alberto behavioral Unspecifie disturbanc d dementia e without behavioral disturbanc e 12/26/2019 [facility] half-way Problem 2019-12-26 Me moria (current) 07:49:25 l use of Long Jorge Alberto systemic term steroids (current) use of systemic steroids 12/26/2019 [facility] Hypokalemi Problem 2019-12-26 emoria a 07:49:25 l [place] Hypokalemi a 12/26/2019 [facility] Obstructiv Problem 2019-12-26 M emoria e sleep 07:49:25 l apnea Jorge Alberto (adult) Obstructiv (pediatric e sleep ) apnea (adult) (pediatric ) 12/26/2019 [facility] Other Problem 2019-12-26 Memor ia disorders 07:49:25 l of Other Jorge Alberto phosphorus disorders metabolism of phosphorus metabolism 12/26/2019 [facility] Constipati Problem 2019-12-26 M emoria on, 07:49:25 l unspecifie Berto n d Constipati on, unspecifie d 12/26/2019 [facility] Fall on Problem 2019-12-26 Kalia aida same level 07:49:25 l from Fall on Jorge Alberto slipping, same level tripping from and slipping, stumbling tripping without and subsequent stumbling striking without against subsequent object, striking initial against encounter object, initial encounter 12/26/2019 [facility] Other Problem 2019-12-26 Memor ia acute 07:49:25 l postproced Other Gerda nn ural pain acute postproced ural pain 12/26/2019 [facility] Acute pain Problem 2019-12-26 M emoria due to 07:49:25 l trauma Acute Jorge Alberto pain due to trauma 12/26/2019 [facility] Major Problem 2019-12-26 Memor ia depressive 07:49:25 l disorder, Major Berto n single depressive episode, disorder, unspecifie single d episode, unspecifie d 12/26/2019 [facility] Abrasion Problem 2019-12-26 Mem oria of right 07:49:25 l upper arm, Abrasion He rmann initial of right encounter upper arm, initial encounter 12/26/2019 [facility] Type 2 Problem 2019-12-26 Memor ia diabetes 07:49:25 l mellitus Type 2 Berto n with diabetes hyperglyce mellitus saloni with hyperglyce saloni 12/26/2019 [facility] Morbid Problem 2019-12-26 Memor ia (severe) 07:49:25 l obesity Morbid [place] due to (severe) excess obesity calories due to excess calories 12/26/2019 [facility] Type 2 Problem 2019-12-26 Memor ia diabetes 07:49:25 l mellitus Type 2 Berto n with diabetes hypoglycem mellitus ia without with coma hypoglycem ia without coma 0 [facility] Hyperlipid Problem 2019-12-26 M emoria emia, 07:49:25 l unspecifie Berto n d Hyperlipid emia, unspecifie d 12/26/2019 [facility] Chronic Problem 2019-12-26 Kalia aida obstructiv 07:49:25 l e Chronic Jorge Alberto pulmonary obstructiv disease, e unspecifie pulmonary d disease, unspecifie d 12/26/2019 [facility] Hypomagnes Problem 2019-12-26 M emoria emia 07:49:25 l Jorge Alberto Hypomagnes emia 0 [facility] Unqualifie Problem 2019-12-26 M emoria d visual 07:49:25 l loss, [place] right eye, Unqualifie normal d visual vision loss, left eye right eye, normal vision left eye 12/26/2019 [facility] Atheroscle Problem 2019-12-26 M emoria rosis of 07:49:25 l aorta Jorge Alberto Atheroscle rosis of aorta 12/26/2019 [facility] Spinal Problem 2019-12-26 Memor ia stenosis, 07:49:25 l cervical Spinal Berto n region stenosis, cervical region 12/26/2019 [facility] Repeated Problem 2019-12-26 Mem oria falls 07:49:25 l Repeated Berto n falls 12/26/2019 [facility] Laceration Problem 2019-12-26 M emoria without 07:49:25 l foreign Jorge Alberto body of Laceration right without forearm, foreign initial body of encounter right forearm, initial encounter 12/26/2019 [facility] Presence Problem 2019-12-26 Mem oria of 07:49:25 l cerebrospi Presence He rmann nal fluid of drainage cerebrospi device nal fluid drainage device 12/26/2019 [facility] Personal Problem 2019-12-26 Mem oria history of 07:49:25 l sudden Personal Berto n cardiac history of arrest sudden cardiac arrest 12/26/2019 [facility] History of Problem 2019-12-26 M emoria falling 07:49:25 l History Jorge Alberto of falling 12/26/2019 [facility] Family Problem 2019-12-26 Memor ia history of 07:49:25 l diabetes Family Berto n mellitus history of diabetes mellitus 12/26/2019 [facility] Personal Problem 2019-12-26 Mem oria history of 07:49:25 l benign Personal Berto n neoplasm history of of the benign brain neoplasm of the brain 12/26/2019 [facility] Other long Problem 2019-12-26 M emoria term 07:49:25 l (current) Other Berto n drug skilled nursing therapy (current) drug therapy 12/26/2019 [facility] Lethargic Problem Inactiv 2011-03-27 M emoria e 08:54:23 l Jorge Alberto Lethargic Inactive Problem 03/27/2011 [facility] Blindness Problem Resolve 2020-02-29 M emoria of one eye d 21:43:44 l (disorder) Berto n Blindness of one eye (disorder) Resolved Problem 02/29/2020 right eye [facility], DOMONIQUE Azul, DOMONIQUE Kelly,[facility] Diabetes Problem Resolve 2020-02-29 Me moria mellitus d 21:43:44 l (disorder) Diabetes He rmann mellitus (disorder) Resolved Problem 02/29/2020 [facility], DOMONIQUE Azul, DOMONIQUE Kelly,[facility] Heart Problem Resolve 2020-02-29 Kalia aida failure d 21:43:44 l (disorder) Heart Gerda nn failure (disorder) Resolved Problem 02/29/2020 systilic [facility], DOMONIQUE Azul, DOMONIQUE Kelly,[facility] Morbid Problem Resolve 2020-02-29 Kalia aida obesity d 21:43:44 l (disorder) Morbid Herm mercy obesity (disorder) Resolved Problem 02/29/2020 [facility], DOMONIQUE Azul, DOMONIQUE Kelly,[facility] Obstructiv Problem Resolve 2020-02-29 Memoria e sleep d 21:43:44 l apnea Jorge Alberto syndrome Obstructiv (disorder) e sleep apnea syndrome (disorder) Resolved Problem 02/29/2020 [facility], DOMONIQUE Azul, DOMONIQUE Kelly,[facility] Myasthenic Problem Resolve 2020-02-29 Memoria crisis d 21:43:44 l (disorder) Berto n Myasthenic crisis (disorder) Resolved Problem 02/29/2020 [facility], DOMONIQUE Azul Diabetes Problem Resolve 2020-02-29 Me moria mellitus d 21:43:44 l type 2 Diabetes Berto n (disorder) mellitus type 2 (disorder) Resolved Problem 02/29/2020 [facility], DOMONIQUE Azul Altered Problem Active 2018-12-01 Kalia aida mental 21:28:18 l status Altered [place] (finding) mental status (finding) Active Problem 12/01/2018 [facility] Problem Active 2020-02-29 Mem oria arterioscl 21:43:44 l erosis Coronary Berto n (disorder) arterioscl erosis (disorder) Active Problem 02/29/2020 [facility], DOMONIQUE Azul,[facility] Leticia,[facility] Craniotomy Problem Active 2018-12-01 M emoria (procedure 21:28:18 l ) Jorge Alberto Craniotomy (procedure ) Active Problem 12/01/2018 [facility] [place],[facility] Hypertensi Problem Active 2020-02-29 M emoria ve 21:43:44 l disorder, [place] systemic Hypertensi arterial ve (disorder) disorder, systemic arterial (disorder) Active Problem 02/29/2020 [facility], DOMONIQUE Azul,[facility] Leticia,[facility] Hypothyroi Problem Active 2020-02-29 M emoria dism 21:43:44 l (disorder) Berto n Hypothyroi dism (disorder) Active Problem 02/29/2020 [facility], DOMONIQUE Azul,[facility] Let[place],[facility] Itching Problem Active 2018-12-01 Kalia aida (finding) 21:28:18 l Itching Jorge Alberto (finding) Active Problem 12/01/2018 [facility] Intracrani Problem Active 2018-12-01 M emoria al 21:28:18 l meningioma Berto n (disorder) Intracrani al meningioma (disorder) Active Problem 12/01/2018 [facility] [place] [facility] Pain Problem Active 2018-12-01 Memor ia (finding) 21:28:18 l Pain [place] (finding) Active Problem 12/01/2018 [facility], DOMONIQUE Kelly,[facility] Visual Problem Active 2018-12-01 Memor ia disturbanc 21:28:18 l e Visual Jorge Alberto (disorder) disturbanc e (disorder) Active Problem 12/01/2018 [facility] DOMONIQUE Kelly,[facility] Body mass Problem Active 2020-02-29 Me moria index 40+ 21:43:44 l - severely Body Berto n obese mass index (finding) 40+ - severely obese (finding) Active Problem 02/29/2020 [facility] OPID Jorge Alberto Myasthenia Problem Active 2020-02-29 M emoria gravis 21:43:44 l (disorder) Berto n Myasthenia gravis (disorder) Active Problem 02/29/2020 [facility] OPID [place] Recurrent Problem Active 2020-02-29 Me moria falls 21:43:44 l (finding) Jorge Alberto Recurrent falls (finding) Active Problem 02/29/2020 [facility] OPID Jorge Alberto Type II Problem Active 2020-02-29 Kalia aida diabetes 21:43:44 l mellitus Type II Gerda nn uncontroll diabetes ed mellitus (finding) uncontroll ed (finding) Active Problem 02/29/2020 [facility] OPID Jorge Albreto Altered Problem Active 2011-03-27 Kalia aida mental 08:54:23 l status Altered [place] mental status Active Problem 03/27/2011 [facility] Craniotomy Problem Active 2011-03-27 M emoria 08:54:23 l Jorge Alberto Craniotomy Active Problem 03/27/2011 [facility] HTN - Problem Active 2011-03-27 Memor ia Hypertensi 08:54:23 l on HTN - [place] Hypertensi on Active Problem 1 [facility] Meningioma Problem Active 2011-03-27 M emoria of brain 08:54:23 l Jorge Alberto Meningioma of brain Active Problem 03/27/2011 [facility] Visual Problem Active 2011-03-27 Memor ia disturbanc 08:54:23 l e Visual Jorge Alberto disturbanc e Active Problem 03/27/2011 [facility] Itching Problem Active 2011-03-27 Kalia aida 08:54:23 l Itching [place] Active Problem 03/27/2011 [facility] Pain Problem Active 2011-03-27 Memor ia 08:54:23 l Pain [place] Active Problem 03/27/2011 [facility] BRAIN Diagnosis Active 2011-02-20 [facility] NEOPLASM 14:11:00 l NOS BRAIN [facility] NEOPLASM NOS Active [facility] t[facility] ADMINISTRT Diagnosis Active 2011-02-04 Memoria VE ENCOUNT 11:31:00 l NOS [facility] ADMINISTRT VE ENCOUNT NOS Active [facility] COMMUNICAT Diagnosis Active 2011-03-05 [facility] HYDROCEPHA 21:52:00 l TANJA Jorge Alberto COMMUNICAT HYDROCEPHA TANJA Active [facility] SUBDURAL Diagnosis Active 2011-03-20 M emoria HEMORRHAGE 21:57:00 l SUBDURAL B[facility] n HEMORRHAGE Active [facility] DEHYDRATIO Diagnosis Active 2011-03-27 Memoria N 13:56:00 l [facility] DEHYDRATIO N Active [facility] MYASTHENIA Diagnosis Active 2018-09-30 [facility] GRAVIS 22:26:00 l WITHOUT Jorge Alberto (ACUTE) MYASTHENIA EXACER GRAVIS WITHOUT (ACUTE) EXACER Active [facility] ILLNESS, Diagnosis Active 2018-09-08 M emoria UNSPECIFIE 11:41:00 l D ILLNESS, Berto n UNSPECIFIE D Active [facility] OCULAR Diagnosis Active 2018-09-22 Mem oria PAIN, 15:15:00 l RIGHT EYE OCULAR Gerda nn PAIN, RIGHT EYE Active [facility] UNQUALIFIE Diagnosis Active 2018-09-22 Memoria D VISUAL 15:15:00 l LOSS, LEFT Berto n EYE, ALEXIA UNQUALIFIE D VISUAL LOSS, LEFT EYE, ALEXIA Active [facility] UNSP DISP Diagnosis Active 2019-12-14 Memoria FX OF 09:22:00 l [facility] UNSP Jorge Alberto CERVICAL DISP FX OF VER[place] [facility] CERVICAL [place] Active [facility] Allergies, Adverse Reactions, Alerts Allergy Allergy Status Severity Reaction(s) Onset Inactive Treating Comm ents Source Name Type Date Date Clinician Gabapent Drug Active Rash [facility] 02-11 [facility] - 00:00: Medical 00 [place] Other Propensi Active Other (See IVIG [facility] ty to Comments) 02-10 [facility] - adverse 00:00: large Medical reaction 00 blisters Center s b/l legs Penicill Drug Active Rash [facility] Allergy 02-13 [facility] - [facility] Medical 00 [place] Salicyla Drug Active Rash [facility] ramakrishna Allergy 02-10 [facility] - [facility]: Medical 00 [place] Ciproflo Drug Active Anaphylaxis [facility] xacin Allergy 02-10 [facility] 00 Center Erythrom Drug Active Other (See Stomach [facility] y[facility] Intolera Comments) 02-10 cramping [facility] - nce 00:00: Medical 00 Center Levoflox Drug Active Anaphylaxis [facility] acin Allergy 02-10 [facility] Center penicill penicill Active 2010-06 Memori a ins<sup> ins<sup> 1-14 l 1</sup> 1</sup> 06:00: Jorge Alberto Freitas erythrom erythrom Active 2010-06 [facility] a ycin<sup ycin<sup 1-14 l >2</sup> >2</sup> 06:00: Berto Freitas Adhesive Adhesive Active 2010-06 Memori a Tape<sup Tape<sup 1-14 l >4</sup> >4</sup> 06:00: Berto Freitas aspirin< aspirin< Active 2010-06 Memori a sup>4</s sup>4</s 1-14 l up> up> 06:00: Jorge Alberto Freitas Adhesive Adhesive Active 2010-06 Memori a Tape<sup Tape<sup 1-14 l >6</sup> >6</sup> 06:00: Berto Freitas Aspirin Allergy Active [facility] TABS to [facility] (finding [place] ) [facility] Cefepime Allergy Active [facility] HCl SOLN to drug ity of (finding [place] ) [facility] Erythrom Allergy Active [facility] ycin to drug ity of Derivati (finding [place] ves ) Physici ans Penicill Allergy Active [facility] ins to drug ity of (finding [place] ) Physici ans PHENobar Allergy Active Univers bital to drug ity of TABS (finding [place] ) Physici ans Cortizon Allergy Active Univers e-10 to drug ity of (finding [place] ) Physici ans ciproflo ciproflo Active Memori a xacin xacin l Jorge Alberto heparin heparin Active Severe [facility]oria l [facility] phenobar phenobar Active Memori a bital bital l Jorge Alberto cefepime cefepime Active Memori a l [facility] Cortizon Cortizon Active Memori a e-10 e-10 l [facility] aspirin aspirin Active Memoria l [facility] erythrom erythrom Active Memori a ycin ycin l Jorge Alberto penicill penicill Active Memori a ins ins l Jorge Alberto Silk Silk Active [facility]oria Tape Tape l Jorge Alberto gabapent gabapent Active Memori a in<sup>3 in<sup>3 l </sup> </sup> Jorge Alberto immune immune Active [facility] globulin globulin l intraven intraven Berto n ous<sup> ous<sup> 5</sup> 5</sup> Social History Social Habit Start Date Stop Date Quantity Comments Source Sex Assigned At [facility] Social History 2018-08-17 2018-08-17 [facility] 08:45:08 08:45:08 Tobacco use and 2017-02-25 2017-02-25 Never used [facility] - exposure 00:00:00 00:00:00 [facility] Alcohol intake 2017-02-25 2017-02-25 Current [facility] es - 00:00:00 00:00:00 non-drinker of Medical Ce nter alcohol (finding) Smoking Status Start Date Stop Date Source Never smoker [facility] Medications Ordered Filled Start Stop Current Ordering Indication Dosage Frequency Signature Comments Components Source Medication Medication Date Date Medication? Clinician (SIG) Name Name lansoprazol 2020-0 Yes 30 mg = 10 Memoria e 3 mg/mL 02-26 mL, PO, l oral 15:50: BID-Before Jorge Alberto suspension 00 Meals, # 600 mL, 0 Refill(s) pregabalin 2020-0 Yes 25 mg = 1 Me moria 25 mg oral 02-26 cap, PO, l capsule 15:45: Q8H-01, 0 Gerda nn 00 Refill(s) Sulfamethox 2020-0 No 1 tab, PO, Memoria azole 800 02-26 [id number], X l MG / 15:45: 1 day, # 2 [facility] Trimethopri 00 tab, 0 m 160 MG Refill(s) Oral Tablet [Bactrim] predniSONE 2019-0 Yes 20 mg = 1 Me moria 20 mg oral 02-26 tab, PO, l tablet 15:45: Daily, X Jorge Alberto 00 21 day, # 21 tab, 0 Refill(s) Insulin 2020-0 Yes 20 unit, Memori a Glargine 02-26 SUB-Q, l 100 UNT/ML 15:45: BID, # 10 He [facility] Injectable 00 mL, 0 Solution Refill(s) lisinopril 2019-0 Yes 5 mg = 1 Mem oria 5 mg oral 02-26 tab, GT, l tablet 15:17: Daily, 0 Jorge Alberto 00 Refill(s) Sulfamethox 2020-0 No 1 tab, PO, Memoria azole 800 02-26 [id number], 0 l MG / 15:17: Refill(s) Jorge Alberto Trimethopri 00 m 160 MG Oral Tablet [Bactrim] Insulin 2020-0 No 15 unit, Memori a Glargine 02-26 SUB-Q, l 100 UNT/ML 15:17: BID, 0 Gerda nn Injectable 00 Refill(s) Solution thiamine 2020-0 Yes 200 mg = 2 Mem oria 100 mg oral 02-26 tab, PO, l tablet 15:17: Daily, 0 Jorge Alberto 00 Refill(s) rosuvastati 2019-0 Yes 10 mg = 1 M emoria n 10 mg 02-26 tab, PO, l oral tablet 15:17: Bedtime, 0 [facility] Refill(s) predniSONE 2019-0 No 20 mg = 1 Me moria 20 mg oral 02-26 tab, PO, l tablet 15:17: Daily, 0 [facility] Refill(s) Calcium 2020-0 No 500 mL, Memoria Chloride 02-26 500 ml/hr, l 0.0014 12:19: Infuse Jorge Alberto MEQ/ML / 00 Over: 1 Potassium hr, Route: Chloride IV, 500, 0.004 Drug form: MEQ/ML / INJ, ONCE, Sodium Priority: Chloride STAT, 0.103 Dosing MEQ/ML / Weight Sodium 84.545 kg, Lactate Start 0.028 date: MEQ/ML 02/27/20 Injectable 7:19:00 Solution CDT, Stop date: 02/27/20 7:19:00 CDT, 0 heparin 2020-0 No Notes: Memoria 02-25 porcine l 02:00: heparin Jorge Alberto 00 heparin 2020-0 Yes Route: Memoria 02-24 MISC, Drug l 15:44: form: INJ, Jorge Alberto 00 ONCE, Dosing Weight 84.545, kg, Please have at bedside to pack catheter post apheresis procedure. , Start date: 02/25/20 10:44:00 CDT, Stop date: 02/25/20 10:44:00 CDT, 0 albumin 2020-0 No 2,500 mL, Memor ia human 5% 02-24 Route: IV, l intravenous 14:32: Dosing [facility] mercy solution 00 Weight 84.545, kg, ONCE, Start date: 02/25/20 9:32:00 CDT, Stop date: 02/25/20 9:32:00 CDT, Indication : Plasmapher esis Calcium 2020-0 No 2.5 gm, Memoria Gluconate 02-24 Route: IV, l 14:32: ONCE, Dosing Weight 84.545, kg, Start date: 02/25/20 9:32:00 CDT, Stop date: 02/25/20 9:32:00 CDT Calcium 2019-0 No Notes: [facility] Gluconate 02-22 WASTE: F/P l 14:30: - Sink; E Jorge Alberto - [facility] Trash Bin albumin 2019-0 No Notes: Memoria human 5% 02-22 LOT#: l intravenous 14:08: [facility] solution ___Mfg:___ ___ (Same as: Albuminar) "blood product derivative " WASTE: F/P - Red; E -Red MEDICATION WASTE Product Size: 25 gm Product Wasted: _0__ gm Sulfamethox 2019-0 No 1 tab, Kalia aida azole 800 02-22 Route: PO, l MG / 01:00: Drug Form: Jorge Alberto Trimethopri TAB, m 160 MG Dosing Oral Tablet Weight [Bactrim] 84.545, kg, [id number], Start date: 02/22/20 20:00:00 CDT, Stop date: 02/28/20 8:00:00 CDT, 0 insulin 2019-0 No 30 unit, Memori a glargine 02-21 Route: l 14:00: SUB-Q, Jorge Alberto 00 Drug form: SOLN, BID, Start date: 02/22/20 9:00:00 CDT, Duration: 30 day, Stop date: 03/22/20 17:00:00 CDT, 0 Lactated 2019-0 No 1,000 mL, Kalia aida Ringers IV 02-21 Rate: 100 l 1,000 mL 12:37: ml/hr, [facility] 00 Infuse over: 10 hr, Route: IV, Dosing Weight 84.545 kg, Total Volume: 1,000, Start date: 02/22/20 7:37:00 CDT, Duration: 30 day, Stop date: 03/23/20 7:36:00 CDT, 1.91, m2, 0 Insulin 2020-0 No Notes: [facility] Lispro 9-23 (Same as: l 12:30: Humalog) Jorge Alberto 00 Roll in palms of hands gently; Do not shake vigorously . WASTE: F/P - Black; E - Municipal Trash Bin Stable for 28 days at room temperatur e. Expires in days from ____Date Insulin 2020-0 No 10 unit, Memori a Glargine 02-21 Route: l 100 UNT/ML 02:00: SUB-Q, Gerda nn Injectable 00 ONCE, Solution Dosing [Lantus] Weight 84.545, kg, Start date: 02/21/20 21:00:00 CDT, Stop date: 02/21/20 21:00:00 CDT D-50-W 2020-0 No 12.5 gm, Memoria 9-23 25 mL, l 01:57: Route: [facility] 00 IVP, Drug Form: INJ, Dosing Weight 84.545, kg, PRN, PRN Blood Glucose Results, Start date: 02/21/20 20:57:00 CDT, Duration: 30 day, Stop date: 03/22/20 20:56:00 CDT, 0 Glucagon 2020-0 No 1 mg, Memoria - Route: IM, l 01:57: Drug form: Jorge Alberto 00 PDR/INJ, PRN, Dosing Weight 84.545, kg, PRN Blood Glucose Results, Start date: 02/21/20 20:57:00 CDT, Duration: 30 day, Stop date: 03/22/20 20:56:00 CDT, 0 Insulin 2020-0 No Notes: [facility] Lispro 9-23 (Same as: l 01:57: Humalog) Jorge Alberto Roll in palms of hands gently; Do not shake vigorously . WASTE: F/P - Black; E - Municipal Trash Bin Stable for 28 days at room temperatur e. Expires in days from ____Date Insulin No Notes: Memoria regular 02-20 (Same as: l 22:46: Humulin R) [facility] Roll in palms of hands gently; Do not shake vigorously . WASTE: F/P - Black; E - Municipal Trash Bin Stable for 31 days at room temperatur e Expires in days from ____Date Insulin No Notes: Memoria regular 02-20 (Same as: l 21:11: Humulin R) Jorge Alberto Roll in palms of hands gently; Do not shake vigorously . WASTE: F/P - Black; E - Municipal Trash Bin Stable for 31 days at room temperatur e Expires in days from ____Date albumin No Notes: Memoria human 5% 02-20 LOT#: l intravenous 16:23: [facility] solution 00 ___Mfg:___ ___ (Same as: Albuminar) "blood product derivative " WASTE: F/P - Red; E -Red MEDICATION WASTE Product Size: 25 gm Product Wasted: _0__ gm Calcium No Notes: [facility] Gluconate 02-20 WASTE: F/P l 12:00: - Sink; E Jorge Alberto - Municipal Trash Bin albumin No Notes: Memoria human 5% 02-20 LOT#: l intravenous 11:45: Jorge Alberto solution 00 ___Mfg:___ ___ (Same as: Albuminar) "blood product derivative " WASTE: F/P - Red; E -Red MEDICATION WASTE Product Size: 25 gm Product Wasted: ___ gm Lyrica No Notes: Memoria 02-19 (Same as: l 15:07: Lyrica) [facility] 00 Os-Roger 500 No Notes: Memor ia 02-19 500mg l 15:00: elemental calcium = 1250mg calcium carbonate. Contains 500mg elemental calcium. (Same As: OsCal 500) Calcium No 2 tab, Memoria Gluconate 02-19 Route: PO, l 650 MG Oral 12:03: ONCE, Gerda nn Tablet Dosing Weight 84.545, kg, Start date: 02/20/20 7:03:00 CDT, Stop date: 02/20/20 7:03:00 CDT remove No 1 patch, Memoria patch 02-19 Route: l 02:00: TOP, [facility] Bedtime, Drug form: ERFILM, Start date: 02/19/20 21:00:00 CDT, Duration: 30 day, Stop date: 03/19/20 21:00:00 CDT, 0 albumin No Notes: Memoria human 5% 02-18 LOT#: l intravenous 17:05: [facility] solution 00 ___Mfg:___ ___ (Same as: Albuminar) "blood product derivative " WASTE: F/P - Red; E -Red MEDICATION WASTE Product Size: 25 gm Product Wasted: _0__ gm Diphenhydra No 50 mg, Kalia aida mine 02-18 Route: l 17:00: IVP, ONCE, [facility] Dosing Weight 84.545, kg, Start date: 02/19/20 12:00:00 CDT, Stop date: 02/19/20 12:00:00 CDT Calcium No Notes: Memoria Gluconate 02-18 WASTE: F/P l 15:00: - Sink; E Jorge Alberto - Municipal Trash Bin albumin No Notes: Memoria human 5% 02-18 LOT#: l intravenous 14:39: [facility] solution 00 ___Mfg:___ ___ (Same as: Albuminar) "blood product derivative " WASTE: F/P - Red; E -Red MEDICATION WASTE Product Size: 25 gm Product Wasted: _0__ gm Lidocaine 2020-0 No 1 patch, Kalia aida 0.05 MG/MG 02-18 Route: l Transdermal 14:00: TOP, Berto n Patch 00 Daily, Drug form: FILM, Start date: 02/19/20 9:00:00 CDT, Duration: 30 day, Stop date: 03/19/20 9:00:00 CDT, 0 rosuvastati 2020-0 No Notes: Kalia aida n 02-18 (Same As: l 02:00: Crestor) Insulin 2020-0 No Notes: Memoria regular 02-18 (Same as: l 01:08: Humulin R) Roll in palms of hands gently; Do not shake vigorously . WASTE: F/P - Black; E - Municipal Trash Bin Stable for 31 days at room temperatur e Expires in days from ____Date insulin 2020-0 No 20 unit, Memori a glargine 02-17 0.2 mL, l 22:00: Route: Jorge Alberto SUB-Q, Drug form: SOLN, BID, Start date: 02/18/20 17:00:00 CDT, Duration: 30 day, Stop date: 03/19/20 9:00:00 CDT, 0 insulin 2020-0 No 15 unit, Memori a detemir 02-17 Route: l 21:06: SUB-Q, Jorge Alberto BID, Dosing Weight 84.545, kg, Start date: 02/18/20 16:06:00 CDT, Duration: 30 day, Stop date: 03/19/20 9:00:00 CDT Dextrose 2020-0 No 12.5 gm, Memor ia 50% Syringe 02-17 25 mL, l (D50W) 21:05: Route: [facility] IVP, Drug Form: INJ, Dosing Weight 84.545, kg, PRN, PRN Blood Glucose Results, Start date: 02/18/20 16:05:00 CDT, Duration: 30 day, Stop date: 03/19/20 16:04:00 CDT, 0 Glucagon 2020-0 No 1 mg, Memoria 02-17 Route: IM, l 21:05: Drug form: PDR/INJ, PRN, Dosing Weight 84.545, kg, PRN Blood Glucose Results, Start date: 02/18/20 16:05:00 CDT, Duration: 30 day, Stop date: 03/19/20 16:04:00 CDT, 0 Insulin 2020-0 No Notes: Memoria regular 02-17 (Same as: l 21:05: Humulin R) Roll in palms of hands gently; Do not shake vigorously . WASTE: F/P - Black; E - Municipal Trash Bin Stable for 31 days at room temperatur e Expires in days from ____Date Dextrose 2020-0 No 25 mL, Memoria 50% Syringe 02-17 Route: l (D50W) 11:26: IVP, Dosing Weight 84.545, kg, PRN, PRN Blood Glucose Results, Start date: 02/18/20 6:26:00 CDT, Duration: 30 day, Stop date: 03/19/20 6:25:00 CDT Glucagon 2020-0 No 1 mg, Memoria 02-17 Route: IM, l 11:26: PRN, Dosing Weight 84.545, kg, PRN Blood Glucose Results, Start date: 02/18/20 6:26:00 CDT, Duration: 30 day, Stop date: 03/19/20 6:25:00 CDT Insulin 2020-0 No 1 unit, Memoria regular 02-17 Route: l 11:26: SUB-Q, TID-Before Meals, Dosing Weight 84.545, kg, PRN Blood Glucose Results, Start date: 02/18/20 6:26:00 CDT, Duration: 30 day, Stop date: 03/19/20 6:25:00 CDT potassium 2020-0 No Notes: Memori a chloride 20 02-17 (Same as: l mEq oral 10:45: K-Dur ) Herm mercy tablet, 00 "Do Not extended Crush" release Give with (KCL) food and full glass of water For patients unable to swallow tablet, dissolve in one half glass of water. Allow about 2 minutes for the tablets to disintegra te. Stir before giving to prepare slurry and administer . Please exclude Patient s with feeding tube less than 14 Cam[place] (Dobhoff, J-tube etc) and pediatric and patients. Tylenol 0 No Notes: Do Memor ia 02-16 not exceed l 22:08: 4 gm/day. [facility] (Same as: Tylenol) Calcium 0 No Notes: Memoria Gluconate 02-16 WASTE: F/P l 22:00: - Sink; E [facility] 00 - Municipal Trash Bin albumin No Notes: Memoria human 5% 02-16 LOT#: l intravenous 21:47: [facility] solution 00 ___Mfg:___ ___ (Same as: Albuminar) "blood product derivative " WASTE: F/P - Red; E -Red MEDICATION WASTE Product Size: 25 gm Product Wasted: ___ gm Pyridostigm No 90 mg, Kalia aida ine 02-16 Route: GT, l 21:00: Drug form: TAB, Q8H, Dosing Weight 84.545, kg, Start date: 02/17/20 16:00:00 CDT, Duration: 30 day, Stop date: 03/18/20 8:00:00 CDT, 0 Mestinon No Notes: Memoria -18 (Same as: l 21:00: Mestinon) pyridostigm 2019-0 No Notes: Kalia aida ine -18 (Same as: l 21:00: Mestinon) 30 mg = 1/2 x 60 mg TAB clonazePAM No Notes: Memor ia -18 (Same as l 18:45: KlonoPIN Jorge Alberto 00 ODT) Hazardous Drug Group 3:Reproduc tive risk Hazardous Drug -- Refer to safe handling procedure PPE Matrix Clonazepam No Notes: Memor ia -18 (Same as l 17:27: KlonoPIN [facility] ODT) Hazardous Drug Group 3:Reproduc tive risk Hazardous Drug -- Refer to safe handling procedure PPE Matrix Furosemide 2019-0 No Notes: Memor ia 20 MG Oral 02-16 (Same as: l Tablet 14:00: Lasix) May cause GI upset. Give with food or milk. Lisinopril No Notes: Memor ia 9-18 (Same as: l 14:00: Prinivil, Zestril) Sertraline No Notes: Memor ia 9-18 (Same as: l 14:00: Zoloft) Prednisone No Notes: Memor ia 9-18 Take with l 14:00: food. Thiamine No Notes: Memoria -18 (Same As: l 14:00: Vitamin B1) Thyroxine No Notes: Memori a -18 Take 1 l 11:30: hour before or 2 hours after meal; Enteral feeds may interefere with the absorption of this medication . (Same as:Synthro id) Dextrose No 12.5 gm, Memor ia 50% Syringe 18 25 mL, l (D50W) 05:59: Route: IVP, Drug Form: INJ, Dosing Weight 84.545, kg, PRN, PRN Blood Glucose Results, Start date: 02/17/20 0:59:00 CDT, Duration: 30 day, Stop date: 03/18/20 0:58:00 CDT, 0 Glucagon 2019- No 1 mg, Memoria 02-16 Route: IM, l 05:59: Drug form: PDR/INJ, PRN, Dosing Weight 84.545, kg, PRN Blood Glucose Results, Start date: 02/17/20 0:59:00 CDT, Duration: 30 day, Stop date: 03/18/20 0:58:00 CDT, 0 Insulin 2019-0 No Notes: Memoria Lispro 18 (Same as: l 05:59: Humalog) Roll in palms of hands gently; Do not shake vigorously . WASTE: F/P - Black; E - Municipal Trash Bin Stable for 28 days at room temperatur e. Expires in days from ____Date Dextrose 2019-0 No 25 mL, Memoria 50% Syringe 18 Route: l (D50W) 05:58: IVP, Dosing Weight 84.545, kg, PRN, PRN Blood Glucose Results, Start date: 02/17/20 0:58:00 CDT, Duration: 30 day, Stop date: 03/18/20 0:57:00 CDT Glucagon 2019-0 No 1 mg, Memoria 02-16 Route: IM, l 05:58: PRN, Dosing Weight 84.545, kg, PRN Blood Glucose Results, Start date: 02/17/20 0:58:00 CDT, Duration: 30 day, Stop date: 03/18/20 0:57:00 CDT Insulin 2019-0 No 2 unit, Memoria Lispro 02-16 Route: l 05:58: SUB-Q, Sliding Scale, Dosing Weight 84.545, kg, PRN Blood Glucose Results, Start date: 02/17/20 0:58:00 CDT, Duration: 30 day, Stop date: 03/18/20 0:57:00 CDT Pyridostigm 2019-0 No Notes: Kalia aida ine 02-15 (Same as: l 21:00: Mestinon) Prednisone 2019-0 No Notes: Memor ia 02-15 Take with l 19:12: food. Dextrose 5% No 1,000 mL, M emoria in Water IV 02-15 Rate: 50 l 1,000 mL 18:53: ml/hr, Infuse over: 20 hr, Route: IV, Dosing Weight 84.545 kg, Total Volume: 1,000, Start date: 02/16/20 13:53:00 CDT, Duration: 30 day, Stop date: 03/17/20 13:52:00 CDT, 1.91, m2, 0 Pyridostigm 2019-0 Yes 60 mg = 1 M emoria ine [place] 02-15 tab, PO, l 60 MG Oral 17:29: TID, 0 Gerda nn Tablet 00 Refill(s) [Mestinon] Clonazepam 0 No Notes: Memor ia 02-15 (Same As: l 17:29: KlonoPIN) Hazardous Drug Group 3:Reproduc tive risk Hazardous Drug -- Refer to safe handling procedure PPE Matrix Acetaminoph No 1,000 mg = Memoria en 500 MG 02-15 2 tab, PO, l Oral Tablet 15:49: TID, 0 Herm mercy [Tylenol] 00 Refill(s) Docusate No Notes: Memoria Sodium 50 02-15 (Same as l MG / 14:00: Senokot-S) Jorge Alberto sennosides, 00 Equiv. to PRISON 8.6 MG [place] Oral Tablet e. Pyridostigm No Notes: Kalia aida ine 02-15 (Same as: l 14:00: Mestinon) Jorge Alberto 00 Furosemide No Notes: Memor ia 20 MG Oral 02-15 (Same as: l Tablet 14:00: Lasix) 00 May cause GI upset. Give with food or milk. Lisinopril No Notes: Memor ia 02-15 (Same as: l 14:00: Prinivil, [facility] 00 Zestril) Sertraline No Notes: Memor ia 02-15 (Same as: l 14:00: Zoloft) [facility] 00 thiamine No 200 mg = 2 Mem oria 100 mg oral 02-15 tab, PO, l tablet 13:57: Daily Jorge Alberto 00 3 ML Yes See Memoria Insulin, 02-15 Instructio l Aspart, 13:55: ns, 10 Jorge Alberto Human 100 00 unit SUB-Q UNT/ML Pen TID-Before Injector Meals and [NovoLog] at bedtime, 0 Refill(s) 3 ML No 30 unit, Memoria insulin 02-15 SUB-Q, l detemir 100 13:55: BID, 0 Herm mercy UNT/ML 00 Refill(s) Prefilled Syringe [Levemir] Thyroxine No Notes: Memori a - Take 1 l 11:30: hour [facility] 00 before or 2 hours after meal; Enteral feeds may interefere with the absorption of this medication . (Same as:Synthro id) heparin No Notes: Memoria sodium, 02-15 porcine l porcine 05:00: heparin Jorge Alberto 2500 UNT/ML 00 Injectable Solution rosuvastati No Notes: Kalia aida n 02-15 (Same As: l 02:00: Crestor) Jorge Alberto 00 Dextrose 2020-0 No 12.5 gm, Memor ia 50% Syringe 02-15 25 mL, l (D50W) 00:49: Route: IVP, Drug Form: INJ, Dosing Weight 84.545, kg, PRN, PRN Blood Glucose Results, Start date: 02/15/20 19:49:00 CDT, Duration: 30 day, Stop date: 03/16/20 19:48:00 CDT, 0 Glucagon 2019- No 1 mg, Memoria 02-15 Route: IM, l 00:49: Drug form: PDR/INJ, PRN, Dosing Weight 84.545, kg, PRN Blood Glucose Results, Start date: 02/15/20 19:49:00 CDT, Duration: 30 day, Stop date: 03/16/20 19:48:00 CDT, 0 Insulin 2019-0 No Notes: [facility]oria Lispro 02-15 (Same as: l 00:49: Humalog) Roll in palms of hands gently; Do not shake vigorously . WASTE: F/P - Black; E - Municipal Trash Bin Stable for 28 days at room temperatur e. Expires in days from ____Date Amlodipine 2019-0 No Notes: Memor ia 02-15 (Same as: l 00:46: Norvasc) predniSONE 2019-0 Yes 20mg QD Take [facility] 02-15 tablet (20 Ruby kes - 20 MG 00:00: mg total) Medical tablet 00 by mouth Center daily. predniSONE 2019-0 2020- No 20mg QD Take [address] [facility] [address] (DELTASONE) -02-14 tablet (20 L ukes - 20 MG 00:00: 00:00 mg total) Medica l tablet 00 :00 by mouth Center daily for 10 days. metoprolol 2019-0 Yes 25mg QD Take [address] (TOPROL-XL) 02-14 by mouth [facility] - 25 MG 24 hr 16:38: daily. Medi orger tablet 36 Center furosemide 2019-0 Yes 40mg QD Take [address] (LASIX) 40 02-14 by mouth [facility] - MG tablet 16:38: daily. Medica l 36 Center ramipril 2020-0 Yes 5mg QD Take [address] [facility] (ALTACE) 5 9-16 by mouth [facility] - MG capsule 16:38: daily. Medic al 36 Center rOPINIRole 2020-0 Yes 2mg QD Take [address] (REQUIP) 2 9-16 by mouth [facility] - MG tablet 16:38: nightly. [facility] 36 Center amLODIPine 2020-0 Yes 5mg QD Take [address] (NORVASC) 5 9-16 by mouth [facility] - MG tablet 16:38: daily. Medica l 36 Center benzonatate 2020-0 Yes 200mg Take [address] (TESSALON) 9-16 mg by [facility] - 200 MG 16:38: mouth 3 Medical capsule 36 (three) Center times daily as needed for Cough. diphenhydrA 2020-0 Yes 25mg Take [address] [facility] MINE 9-16 by mouth [facility] - (BENADRYL 16:38: every 6 Medic al ALLERGY) 25 36 (six) Center mg tablet hours as needed. insulin 2020-0 Yes 40U Q.5D Inject 40 [facility] glargine 9-16 Units [facility] - (LANTUS 16:38: subcutaneo [facility] SOLOSTAR) 36 usly 2 Center 100 unit/mL (two) (3 mL) InPn times daily. DULAGLUTIDE 2020-[address] [facility] (TRULICITY 9-16 subcutaneo Rosio es - SUBQ) 16:38: usly every Medica l 36 7 days. Center levothyroxi 2020-0 Yes 88ug Take [address] [facility] ne 9-16 mcg by [facility] - (SYNTHROID, 16:38: mouth Medic al LEVOTHROID) 36 Every Center 88 MCG morning on tablet an empty stomach. metFORMIN 2020-0 Yes 500mg Take [address] [facility] (GLUCOPHAGE 9-16 mg by [facility] - ) 500 MG 16:38: mouth 2 Medica l tablet 36 (two) Center times daily with breakfast and dinner. gabapentin 2020-0 Yes 100mg QD Take [address] (NEURONTIN) 9-16 mg by [facility] - 100 MG 16:38: mouth Medical capsule 36 daily. Center atorvastati 2020-0 Yes 40mg QD Take [address] [facility] (LIPITOR) 9-16 by mouth [facility] - 40 MG 16:38: daily. Medical tablet 36 Center pyridostigm 2020-0 Yes 60mg Take [address] [facility] 9-16 (60 mg [facility] - (MESTINON) 00:00: total) by Me dical 60 mg/5 mL 00 mouth Center syrup every 8 (eight) hours. pyridostigm 2020-0 2020- No 60mg Take [address] [facility] 9-16 09-16 (60 mg [facility] ([place]) 00:00: 00:00 total) by M edical 60 mg/5 mL 00 :00 mouth Center syrup every 8 (eight) hours. levothyroxi 2020-0 2020- No 1{tbl} Take [address] [facility] 88 mcg 9-13 -13 tablet by [facility] - Cap 01:41: 00:00 mouth Medical 01 :00 every Center morning before breakfast. clonazePAM 2020-0 Yes .5mg Q.5D Take 0.[address] [facility] (KLONOPIN) 9-11 mg by [facility] - [facility].5 MG 00:00: mouth 2 Medical tablet 00 (two) Center times daily. sertraline 2020-0 Yes 25mg QD Take [address] [facility] (ZOLOFT) 25 9-08 by mouth [facility] - MG tablet 00:00: nightly. Medi roger 00 Center rosuvastati 2020-0 Yes 20mg QD Take [address] [facility] (CRESTOR) 8-01 by mouth [facility] - 20 MG 00:00: daily. Medical tablet 00 Center Potassium 2020-0 Yes 10 mEq = 1 Me moria Chloride 10 7-20 tab, PO, l MEQ 20:22: Daily, # Jorge Alberto Extended 00 30 tab, 0 Release Refill(s), Tablet other [Klor-Con] amLODIPine 2020-0 Yes 5 mg = 1 Mem oria 5 mg oral 7-20 tab, PO, l tablet 20:22: Daily, # Jorge Alberto 00 30 tab, 0 Refill(s), Pharmacy: [facility] #[id number], 149.86, cm, 12/06/19 15:12:00 CDT, Height, 90, kg, 11/23/19 2:25:00 CDT, Weight insulin 2020-0 Yes 2 unit, Memoria lispro 100 7-20 SUB-Q, l units/mL 20:22: TID-Before Her restrepo injectable 00 Meals, PRN solution Blood Glucose Results, before each meal, FOR BLOOD SUGAR 150-199, # 3 mL, 0 Refill(s), other lansoprazol 2020-0 Yes 30 mg = 10 Memoria e 3 mg/mL 7-20 mL, PO, l oral 20:22: BID-Before Jorge Alberto suspension 00 Meals, # 600 mL, 0 Refill(s), other Lidocaine 2020-0 Yes 1 patch, Kalia aida 0.04 MG/MG 7-20 TOP, l Medicated 20:22: Daily, X Herm mercy Patch 00 10 day, # 10 patch, 0 Refill(s), other 3 ML 2020-0 Yes 14 unit, Memoria insulin 7-20 SUB-Q, l detemir 100 20:22: BID, # 3 He rmann UNT/ML 00 mL, 0 Prefilled Refill(s), Syringe other [Levemir] D50W 2020-0 No 12.5 gm, Memoria (bolus) IV 7-20 25 mL, l 13:19: Route: IVP, Drug Form: INJ, Dosing Weight 90, kg, PRN, PRN Blood Glucose Results, Start date: 12/19/19 8:19:00 CDT, Duration: 30 day, Stop date: 01/18/20 8:18:00 CDT, 0 Glucagon 2020-0 No 1 mg, Memoria 7-20 Route: IM, l 13:19: Drug form: Jorge Alberto 00 PDR/INJ, PRN, Dosing Weight 90, kg, PRN Blood Glucose Results, Start date: 12/19/19 8:19:00 CDT, Duration: 30 day, Stop date: 01/18/20 8:18:00 CDT, 0 Insulin 2020-0 No Notes: [facility]oria Lispro 7-20 (Same as: l 13:19: Humalog) Roll in palms of hands gently; Do not shake vigorously . WASTE: F/P - Black; E - Municipal Trash Bin Stable for 28 days at room temperatur e. Expires in days from ____Date D50W 2020-0 No 12.5 gm, Memoria (bolus) IV 7-20 25 mL, l 13:18: Route: [place] 00 IVP, Drug Form: INJ, Dosing Weight 90, kg, PRN, PRN Blood Glucose Results, Start date: 12/19/19 8:18:00 CDT, Duration: 30 day, Stop date: 01/18/20 8:17:00 CDT, 0 Glucagon 2020-0 No 1 mg, Memoria 7-20 Route: IM, l 13:18: Drug form: Jorge Alberto PDR/INJ, PRN, Dosing Weight 90, kg, PRN Blood Glucose Results, Start date: 12/19/19 8:18:00 CDT, Duration: 30 day, Stop date: 01/18/20 8:17:00 CDT, 0 Insulin 2020-0 No Notes: [facility] Lispro 7-20 (Same as: l 13:18: Humalog) Jorge Alberto 00 Roll in palms of hands gently; Do not shake vigorously . WASTE: F/P - Black; E - Municipal Trash Bin Stable for 28 days at room temperatur e. Expires in days from ____Date Potassium 2020-0 No Notes: Memori a Chloride -18 (Same as: l 1.33 MEQ/ML 18:56: Potassium H ermann Oral 00 Chloride) Solution Dextrose 2020-0 No 12.5 gm, Memor ia 50% Syringe 12-15 25 mL, l (D50W) 20:42: Route: [place] IVP, Drug Form: INJ, Dosing Weight 90, kg, PRN, PRN Blood Glucose Results, Start date: 12/16/19 15:42:00 CDT, Duration: 30 day, Stop date: 01/15/20 15:41:00 CDT, 0 Glucagon 2020-0 No 1 mg, Memoria - Route: IM, l 20:42: Drug form: [place] 00 PDR/INJ, PRN, Dosing Weight 90, kg, PRN Blood Glucose Results, Start date: 12/16/19 15:42:00 CDT, Duration: 30 day, Stop date: 01/15/20 15:41:00 CDT, 0 Insulin 2020-0 No Notes: [facility] Lispro 7-17 (Same as: l 20:42: Humalog) [place] 00 Roll in palms of hands gently; Do not shake vigorously . WASTE: F/P - Black; E - Municipal Trash Bin Stable for 28 days at room temperatur e. Expires in days from ____Date potassium No Notes: Memori a phosphate-s 7-16 (Same as: l odium 22:00: Phos-NaK) [place] phosphate 00 Each 1.5 250 mg-280 gm pkt has mg-160 mg 250mg oral powder phosphorou for s. Mix reconstitut w/2.5oz ion water and stir. Potassium No Notes: Memori a Chloride 7-16 (Same as: l 01:00: KCL) [place] 00 Infuse over 2 hours. Morphine No Notes: Memoria 7-15 (Same l 23:52: as:MORPhin Jorge Alberto 00 e Sulfate) potassium No Notes: Memori a phosphate 7-14 (Same as: l 22:19: K Jorge Alberto 00 Phosphate. ) Do not infuse phosphorou s concurrent ly in the same line as TPN or IVF that contains calcium. For double lumen central lines, phosphorou s may be infused in a separate lumen from TPN. 1 mMol phoshate has 1.47 mEq potassium Infuse over 4 hours insulin, No Notes: [facility]oria isophane 7-14 (Same as: l 14:00: Humulin N) [place] 00 Roll in palms of hands gently; Do not shake vigorously . WASTE: F/P - Black; E - Municipal Trash Bin Stable for 31 days at room temperatur e Expires in days from ____Date lansoprazol No Notes: Kalia aida e 7-14 Take 1 l 12:30: hour Jorge Alberto 00 before or 2 hours after meal; Expires in 14 days. Shake well before use. (Same as:Baljeet vizcaino) Compound ed Product - formulatio n not commercial ly available* * insulin, No Notes: [facility] isophane 7-14 (Same as: l 00:58: Humulin N) [place] 00 Roll in palms of hands gently; Do not shake vigorously . WASTE: F/P - Black; E - Municipal Trash Bin Stable for 31 days at room temperatur e Expires in days from ____Date Albuterol No Notes: Memori a 0.833 MG/ML - (Same as: l / 21:35: Duoneb) Ipratropium 00 [place] 0.167 MG/ML Inhalant Solution Furosemide No Notes: Memor ia 7-13 (Same as: l 19:00: Lasix) MEDICATION WASTE Product Size: 40 mg Product Wasted: ___ mg Potassium No Notes: Memori a Chloride 12-11 (Same as: l 13:51: Potassium Chloride) Furosemide No Notes: Memor ia 12-11 (Same as: l 13:02: Lasix) MEDICATION WASTE Product Size: 40 mg Product Wasted: ___ mg Lovenox No Notes: Memoria 7-12 (Same as: l 23:00: Lovenox) Magnesium No Notes: Memori a Sulfate 12-10 WASTE: F/P l 22:03: - Sink; E - Municipal Trash Bin potassium No Notes: Memori a phosphate 7-12 (Same as: l 22:02: K Phosphate. ) Do not infuse phosphorou s concurrent ly in the same line as TPN or IVF that contains calcium. For double lumen central lines, phosphorou s may be infused in a separate lumen from TPN. 1 mMol phoshate has 1.47 mEq potassium Infuse over 4 hours Clonazepam No Notes: Memor ia 7-12 (Same As: l 22:00: KlonoPIN) Hazardous Drug Group 3:Reproduc tive risk Hazardous Drug -- Refer to safe handling procedure PPE Matrix Lorazepam No Notes: Memori a 7-12 (Same as: l 17:40: Ativan) Ofirmev No Notes: Memoria 7-12 Infuse l 17:00: over 15 minutes Do not exceed 4gm/day of acetaminop hen MEDICATION WASTE Product Size: 1000 mg Product Wasted: ___ mg Lidocaine No Notes: Memori a Hydrochlori -12 (Same as: l de 0.02 14:07: Xylocaine Gerda nn MG/MG 00 Jelly, Topical Gel Glydo) Morphine No Notes: Memoria 7-12 (Same l 14:06: as:MORPhin [place] 00 e Sulfate) Blistex No Notes: Memoria topical -12 Same as: l ointment 14:00: Blistex Berto n 00 LR IV 1,000 No 1,000 mL, M emoria mL 12-10 Rate: 75 l 05:31: ml/hr, [place] Infuse over: 13.3 hr, Route: IV, Dosing Weight 90 kg, Total Volume: 1,000, Start date: 12/11/19 0:31:00 CDT, Duration: 1 day, Stop date: 12/12/19 0:30:00 CDT, 1.98, m2, 0 pantoprazol No Notes: For Memoria e 12-10 IV push l 02:00: reconstitu Jorge Alberto te with 10 ml 0.9% sodium chloride and push over 2 minutes. (Same as: Protonix) Lovenox No Notes: Memoria -12 (Same as: l 02:00: Lovenox) Jorge Alberto 00 Lanolin No Notes: Memoria 0.157 MG/MG - (Same as: l / Menthol 23:30: Calmosepti He rmann 0.0044 00 ne) MG/MG / Petrolatum 0.24 MG/MG / Zinc Oxide 0.206 MG/MG Topical Ointment [Calmosepti ne] insulin, No Notes: [facility]oria isophane 7-11 (Same as: l 22:00: Humulin N) Jorge Alberto 00 Roll in palms of hands gently; Do not shake vigorously . WASTE: F/P - Black; E - Municipal Trash Bin Stable for 31 days at room temperatur e Expires in days from ____Date Lasix 2020-0 No Notes: Memoria 7-11 (Same as: l 22:00: Lasix) Jorge Alberto 00 May cause GI upset. Give with food or milk. Dextrose 2019-0 No 12.5 gm, Memor ia 50% Syringe 7-11 25 mL, l (D50W) 16:56: Route: Jorge Alberto 00 IVP, Drug Form: INJ, Dosing Weight 90, kg, PRN, PRN Blood Glucose Results, Start date: 12/10/19 11:56:00 CDT, Duration: 30 day, Stop date: 01/09/20 11:55:00 CDT, 0 Glucagon 2019-0 No 1 mg, Memoria 7-11 Route: IM, l 16:56: Drug form: [place] 00 PDR/INJ, PRN, Dosing Weight 90, kg, PRN Blood Glucose Results, Start date: 12/10/19 11:56:00 CDT, Duration: 30 day, Stop date: 01/09/20 11:55:00 CDT, 0 Insulin 2019-0 No Notes: Memoria Lispro 7-11 (Same as: l 16:56: Humalog) Jorge Alberto Roll in palms of hands gently; Do not shake vigorously . WASTE: F/P - Black; E - Municipal Trash Bin Stable for 28 days at room temperatur e. Expires in days from ____Date Dextrose 5% 2019- No 1,000 mL, M emoria with 0.45% 7-11 Rate: 75 l NaCl IV 00:56: ml/hr, Jorge Alberto 1,000 mL 00 Infuse over: 13.3 hr, Route: IV, Dosing Weight 90 kg, Total Volume: 1,000, Start date: 12/09/19 19:56:00 CDT, Duration: 30 day, Stop date: 01/08/20 19:55:00 CDT, 1.98, m2, 0 pantoprazol 2019-0 No Notes: For Memoria e additive 7-10 IV push l 80 mg + 22:19: reconstitu Herm mercy Sodium 00 te with 10 Chloride ml 0.9% 0.9% IV 100 sodium mL chloride and push over 2 minutes. (Same as: Protonix) pantoprazol 0 No Notes: For Memoria e 7-10 IV push l 17:40: reconstitu te with 10 ml 0.9% sodium chloride and push over 2 minutes. (Same as: Protonix) Acetaminoph No Notes: Do M emoria en 12-08 not exceed l 05:00: 4 gm/day. (Same as: Tylenol) Amlodipine No Notes: Memor ia 12-07 (Same as: l 14:00: Norvasc) Ramipril No Notes: Memoria 12-07 (Same l 14:00: as:Altace) Dextrose No 12.5 gm, Memor ia 50% in 12-06 25 mL, l Water IV 17:21: Route: IVP, Drug Form: INJ, Dosing Weight 90, kg, PRN, PRN Blood Glucose Results, Start date: 12/07/19 12:21:00 CDT, Duration: 30 day, Stop date: 01/06/20 12:20:00 CDT, 0 Glucagon No 1 mg, Memoria 12-06 Route: IM, l 17:21: Drug form: PDR/INJ, PRN, Dosing Weight 90, kg, PRN Blood Glucose Results, Start date: 12/07/19 12:21:00 CDT, Duration: 30 day, Stop date: 01/06/20 12:20:00 CDT, 0 Insulin No Notes: [facility]oria Lispro 12-06 (Same as: l 17:21: Humalog) Roll in palms of hands gently; Do not shake vigorously . WASTE: F/P - Black; E - Municipal Trash Bin Stable for 28 days at room temperatur e. Expires in days from ____Date Prednisone No Notes: Memor ia 12-06 Take with l 14:00: food. Potassium No Notes: Memori a Chloride 12-06 (Same as: l 12:51: Potassium Chloride) Lovenox No Notes: Memoria 12-05 (Same as: l 23:00: Lovenox) Lasix 2020-0 No Notes: Memoria - (Same as: l 20:35: Lasix) Tylenol No Notes: Do Memor ia - not exceed l 17:17: 4 gm/day. (Same as: Tylenol) Dextrose No 12.5 gm, Memor ia 50% Syringe 12-05 25 mL, l (D50W) 17:15: Route: IVP, Drug Form: INJ, Dosing Weight 90, kg, PRN, PRN Blood Glucose Results, Start date: 12/06/19 12:15:00 CDT, Duration: 30 day, Stop date: 01/05/20 12:14:00 CDT, 0 Glucagon No 1 mg, Memoria 12-05 Route: IM, l 17:15: Drug form: PDR/INJ, PRN, Dosing Weight 90, kg, PRN Blood Glucose Results, Start date: 12/06/19 12:15:00 CDT, Duration: 30 day, Stop date: 01/05/20 12:14:00 CDT, 0 Insulin No Notes: Memoria regular 12-05 (Same as: l 17:15: Humulin R) Roll in palms of hands gently; Do not shake vigorously . WASTE: F/P - Black; E - Municipal Trash Bin Stable for 31 days at room temperatur e Expires in days from ____Date Famotidine No Notes: Memor ia 20 MG Oral 12-05 (Same as: l Tablet 17:10: Pepcid) Jorge Alberto [Pepcid] 00 chlorhexidi No Notes: Kalia aida ne - (Same As: l gluconate 14:00: Peridex) Herm mercy 1.2 MG/ML 00 Mouthwash ocular No Notes: Memoria lubricant 12-05 (Same as: l 11:00: Lacri-Lube Jorge Alberto 00 , Puralube, Duratears Naturale, Artificial Tears, and Tears Again ) chlorhexidi No Notes: Kalia aida ne - (Same As: l gluconate 05:13: Peridex) Herm mercy 1.2 MG/ML 00 Mouthwash Hydrocortis 2020-0 No Notes: Kalia aida one 12-05 (Same as: l 05:00: Solu-BERKLEY F) Neurontin 2019-0 No Notes: Memori a 12-05 (Same as: l 02:00: Neurontin) NS 1,000 mL 2020-0 No 1,000 mL, M emoria 12-05 Rate: 40 l 01:50: ml/hr, Infuse over: 25 hr, Route: IV, Dosing Weight 90 kg, Total Volume: 1,000, Start date: 12/05/19 20:50:00 CDT, Duration: 30 day, Stop date: 01/04/20 20:49:00 CDT, 1.98, m2, 0 Baclofen 2019- No 5 mg, 1 Memori a 12-05 tab, l 01:45: Route: GT, Drug form: TAB, Q8H, Dosing Weight 90, kg, PRN Muscle Spasms, Start date: 12/05/19 20:45:00 CDT, Duration: 30 day, Stop date: 01/04/20 20:44:00 CDT, 0 Tramadol 2019-0 No Notes: Not Mem oria 12-05 to exceed l 01:45: 400mg/day. (Same As: Ultram) Fentanyl 2019-0 No Notes: Memoria 12-05 (Same as: l 01:45: Sublimaze) Preservat kimberly free. Vancomycin 2019-0 No 2000 mg: Me moria 12-04 infuse l 23:00: over 2.5 hours For adult patients only: Round to nearest 250 mg per Medical Staff approval MEDICATION WASTE Product Size: 1000 mg Product Wasted: ___ mg Hydralazine 2019-0 No Notes: Kalia aida 12-04 (Same as: l 22:22: Apresoline ) Push over 5 minutes Labetalol 2019-0 No 10 mg, 2 Kalia aida - mL, Route: l 22:22: IVP, Drug form: INJ, Q5Min, Dosing Weight 90, kg, PRN Elevated BP, Start date: 12/05/19 17:22:00 CDT, Duration: 5 doses or times, Stop date: 12/06/19 0:00:00 CDT, 0 Acetaminoph 2019-0 No Notes: Kalia aida en 12-04 Infuse l 22:22: over 15 minutes Do not exceed 4gm/day of acetaminop hen MEDICATION WASTE Product Size: 1000 mg Product Wasted: ___ mg Fentanyl No Notes: Memoria 12-04 (Same as: l 22:22: Sublimaze) Preservat kimberly free. Flumazenil No Notes: Memor ia 12-04 (Same as: l 22:22: Romazicon) Naloxone No Notes: Memoria 12-04 Same as l 22:22: Narcan Ondansetron No Notes: Kalia aida 12-04 (Same as: l 22:22: Zofran) MEDICATION WASTE Product Size: 4 mg Product Wasted: ___ mg propofol 10 No Notes: If M emoria mg/mL 12-04 Diprivan - l (Titrate.) 22:22: change Gerda nn IV 1,000 mg 00 bottle & tubing every 12 hr Per state nursing law propofol can only be given by a nurse if patient is intubated or being intubated (unless the nurse is a AIR[employer]ER). Same as: Diprivan norepinephr No Route: IV, Memoria ine (ANES) 12-04 Drug form: l 10 20:20: INJ, Start [place] microgram date: 12/05/19 15:20:00 CDT, Stop date: 12/05/19 16:20:00 CDT norepinephr No Route: IV, Memoria ine (ANES) 12-04 Drug form: l 20:10: INJ, ONCE, Jorge Alberto 00 Stop date: 12/05/19 15:10:00 CDT Insulin 2019-0 No Route: IV, Kalia aida regular 12-04 Drug form: l (ANES) 19:40: INJ, ONCE, Gerda nn Stop date: 12/05/19 14:40:00 CDT calcium 2020-0 No Route: IV, Kalia aida gluconate 12-04 Drug form: l (ANES) 16:21: INJ, ONCE, Gerda nn Stop date: 12/05/19 11:21:00 CDT magnesium 2020-0 No Route: IV, Me moria sulfate 12-04 Drug form: l (ANES) 500 15:56: INJ, Start H ermann mg date: 12/05/19 10:56:00 CDT, Stop date: 12/05/19 11:56:00 CDT phenylephri 2020-0 No Route: IV, Memoria ne (ANES) 12-04 Drug form: l 100 15:46: INJ, Start Jorge Alberto microgram date: 12/05/19 10:46:00 CDT, Stop date: 12/05/19 11:46:00 CDT lidocaine 2019-0 No Route: IV, Me moria (ANES) 12-04 Drug form: l 15:35: INJ, ONCE, Stop date: 12/05/19 10:35:00 CDT phenylephri 2019-0 No Route: IV, Memoria ne (ANES) 12-04 Drug form: l 15:25: INJ, ONCE, Jorge Alberto 00 Stop date: 12/05/19 10:25:00 CDT propofol 2019-0 No Route: IV, Mem oria (ANES) 12-04 Drug form: l 14:44: INJ, ONCE, Stop date: 12/05/19 9:44:00 CDT succinylcho 2019-0 No Route: IV, Memoria line (ANES) 12-04 Drug form: l 14:44: INJ, ONCE, Stop date: 12/05/19 9:44:00 CDT fentaNYL 2020-0 No Route: IV, Mem oria (ANES) 12-04 Drug form: l 14:44: INJ, ONCE, Stop date: 12/05/19 9:44:00 CDT dexamethaso 2019-0 No Route: IV, Memoria ne (ANES) 12-04 Drug form: l 14:39: INJ, ONCE, Stop date: 12/05/19 9:39:00 CDT ePHEDrine 2019-0 No Route: IV, Me moria (ANES) 12-04 Drug form: l 13:58: INJ, ONCE, Jorge Alberto 00 Stop date: 12/05/19 8:58:00 CDT Sodium 2020-0 No Route: IV, Memor ia Chloride 7- Total l 0.9% IV 13:55: Volume: Jorge Alberto (ANES) 500 00 500, Start mL date: 12/05/19 8:55:00 CDT, Stop date: 12/05/19 9:55:00 CDT propofol 2020-0 No Route: IV, Mem oria (ANES) 10 12-04 Drug form: l mg 13:55: INJ, Start Jorge Alberto 00 date: 12/05/19 8:55:00 CDT, Stop date: 12/05/19 9:55:00 CDT SUFentanil 2019-0 No Route: IV, M emoria (ANES) 50 12-04 Drug form: l microgram 13:55: INJ, Start He rmann 00 date: 12/05/19 8:55:00 CDT, Stop date: 12/05/19 9:55:00 CDT Sodium 2019-0 No Route: IV, Memor ia Chloride 12-04 Drug form: l 0.9% IV 13:45: INJ, Start Herm mercy (ANES) 235 00 date: mL + 12/05/19 vancomycin 8:45:00 (ANES) 1500 CDT, Stop mg date: 12/05/19 9:45:00 CDT Isolyte S 2020-0 No Route: IV, Me moria PH 7.4 7- Total l (ANES) 1000 13:08: Volume: Her restrepo mL 00 1,000, Start date: 12/05/19 8:08:00 CDT, Stop date: 12/05/19 9:08:00 CDT Albuterol 2019-0 No Notes: Memori a 0.833 MG/ML 12-04 (Same as: l / 13:00: Duoneb) [place] Ipratropium 00 [place] 0.167 MG/ML Inhalant Solution Humalog 2019-0 No Notes: Memoria - (Same as: l 21:30: Humalog) [place] 00 Roll in palms of hands gently; Do not shake vigorously . WASTE: F/P - Black; E - Municipal Trash Bin Stable for 28 days at room temperatur e. Expires in days from ____Date Humalog 0 No Notes: Memoria 7- (Same as: l 18:08: Humalog) Jorge Alberto Roll in palms of hands gently; Do not shake vigorously . WASTE: F/P - Black; E - Municipal Trash Bin Stable for 28 days at room temperatur e. Expires in days from ____Date Humalog 0 No Notes: Memoria 7- (Same as: l 23:26: Humalog) [place] Roll in palms of hands gently; Do not shake vigorously . WASTE: F/P - Black; E - Municipal Trash Bin Stable for 28 days at room temperatur e. Expires in days from ____Date Insulin 2019-0 No Notes: Memoria Lispro 12-02 (Same as: l 05:57: Humalog) Jorge Alberto 00 Roll in palms of hands gently; Do not shake vigorously . WASTE: F/P - Black; E - Municipal Trash Bin Stable for 28 days at room temperatur e. Expires in days from ____Date Insulin 2019-0 No 20 unit, Memori a Glargine 12-01 0.2 mL, l 14:00: Route: Jorge Alberto SUB-Q, Drug form: SOLN, Daily, Dosing Weight 90, kg, Start date: 12/02/19 9:00:00 CDT, Duration: 30 day, Stop date: 12/31/19 9:00:00 CDT, 0 Levemir 2020-0 No 20 unit, Memori a 12-01 Route: l 02:00: SUB-Q, [place] Bedtime, Dosing Weight 90, kg, Start date: 12/01/19 21:00:00 CDT, Duration: 30 day, Stop date: 12/30/19 21:00:00 CDT Dextrose 2020-0 No 12.5 gm, Memor ia 50% Syringe 11-30 25 mL, l (D50W) 18:30: Route: IVP, Drug Form: INJ, Dosing Weight 90, kg, PRN, PRN Blood Glucose Results, Start date: 12/01/19 13:30:00 CDT, Duration: 30 day, Stop date: 12/31/19 13:29:00 CDT, 0 Glucagon 2020-0 No 1 mg, Memoria 11-30 Route: IM, l 18:30: Drug form: PDR/INJ, PRN, Dosing Weight 90, kg, PRN Blood Glucose Results, Start date: 12/01/19 13:30:00 CDT, Duration: 30 day, Stop date: 12/31/19 13:29:00 CDT, 0 Lactated 2020-0 No 1,000 mL, Kalia aida Ringers IV 11-29 Rate: 75 l 1,000 mL 07:25: ml/hr, Infuse over: 13.3 hr, Route: IV, Dosing Weight 90 kg, Total Volume: 1,000, Start date: 11/30/19 2:25:00 CDT, Duration: 1 day, Stop date: 12/01/19 2:24:00 CDT, 1.98, m2, 0 Dextrose 2020-0 No 12.5 gm, Memor ia 50% Syringe 11-29 25 mL, l (D50W) 02:47: Route: IVP, Drug Form: INJ, Dosing Weight 90, kg, PRN, PRN Blood Glucose Results, Start date: 11/29/19 21:47:00 CDT, Duration: 30 day, Stop date: 12/29/19 21:46:00 CDT, 0 Glucagon 2020-0 No 1 mg, Memoria 11-29 Route: IM, l 02:47: Drug form: PDR/INJ, PRN, Dosing Weight 90, kg, PRN Blood Glucose Results, Start date: 11/29/19 21:47:00 CDT, Duration: 30 day, Stop date: 12/29/19 21:46:00 CDT, 0 Insulin 2020-0 No Notes: Memoria Lispro 11-29 (Same as: l 02:47: Humalog) Roll in palms of hands gently; Do not shake vigorously . WASTE: F/P - Black; E - Municipal Trash Bin Stable for 28 days at room temperatur e. Expires in days from ____Date Insulin 2019-0 No 20 unit, Memori a Glargine 7-01 0.2 mL, l 100 UNT/ML 02:00: Route: Gerda nn Injectable 00 SUB-Q, Solution Drug form: [Lantus] SOLN, Q12H, Dosing Weight 90, kg, Start date: 11/29/19 21:00:00 CDT, Duration: 30 day, Stop date: 12/29/19 9:00:00 CDT, 0 Lidocaine No Notes: Memori a Hydrochlori 6-30 (Same as: l de 10 MG/ML 21:00: Xylocaine) [place] Injectable 00 Solution Saline No Notes: Memoria Flush 0.9% 6-30 (Same as: l 21:00: BD [place] Posiflush) Saline No Notes: Memoria Flush 0.9% 6-30 (Same as: l 20:21: BD [place] Posiflush) Dextrose 5% No 1,000 mL, M emoria with 0.45% 6-30 Rate: 40 l NaCl IV 11:28: ml/hr, Jorge Alberto 1,000 mL 00 Infuse over: 25 hr, Route: IV, Dosing Weight 90 kg, Total Volume: 1,000, Start date: 11/29/19 6:28:00 CDT, Duration: 30 day, Stop date: 12/29/19 6:27:00 CDT, 1.98, m2, 0 Melatonin 3 No Notes: Kalia aida MG Extended 6-27 (Same as: l Release 05:11: Melatonin) Herm mercy Tablet 00 sennosides, No Notes: Kalia aida PRISON 6-27 (Same as: l 02:00: Senokot) Jorge Alberto 00 Insulin 2019-0 No 20 unit, Memori a Glargine 6-27 0.2 mL, l 100 UNT/ML 02:00: Route: Gerda nn Injectable 00 SUB-Q, Solution Drug form: [Lantus] SOLN, Q12H, Dosing Weight 90, kg, Start date: 11/25/19 21:00:00 CDT, Duration: 30 day, Stop date: 12/25/19 9:00:00 CDT, 0 Ramipril 2020-0 No Notes: Memoria - (Same l 14:00: as:Altace) Jorge Alberto 00 Oxycodone 2019-0 No Notes: Memori a Hydrochlori 11-24 (Same as: l de 1 MG/ML 12:15: 'Roxicodon H ermann Oral 00 e) Solution rosuvastati 2019-0 No Notes: Kalia aida n 11-24 (Same As: l 02:00: Crestor) Jorge Alberto 00 Acetaminoph 2019-0 Yes 650 mg = 2 Memoria en 325 MG 6-25 tab, PO, l Oral Tablet 17:08: PRN, 0 Herm mercy [Tylenol] 00 Refill(s) clonazePAM 2019-0 Yes 0.5 mg = 1 M emoria 0.5 mg oral 6-25 tab, PO, l tablet 17:08: BID, 0 Jorge Alberto 00 Refill(s) sertraline 2019-0 Yes 25 mg = 1 Me moria 25 mg oral 6-25 tab, PO, l tablet 17:08: Daily, 0 [place] 00 Refill(s) predniSONE 2020-0 Yes 20 mg = 1 Me moria 20 mg oral 6-25 tab, PO, l tablet 17:08: Daily, 0 Jorge Alberto 00 Refill(s) rosuvastati 2020-0 Yes 20 mg = 1 M emoria n 20 mg 6-25 tab, PO, l oral tablet 17:08: Daily, 0 He rmann 00 Refill(s) ramipril 2020-0 Yes 2.5 mg = 1 Mem oria 2.5 mg oral 6-25 cap, PO, l capsule 17:08: Daily, 0 Berto n 00 Refill(s) 3 ML 2020-0 No 25 unit, Memoria insulin 6-25 SUB-Q, l detemir 100 17:08: BID, # 3 He rmann UNT/ML 00 mL, 3 Prefilled Refill(s) Syringe [Levemir] levothyroxi 2020-0 Yes 88 Memori a ne 88 mcg 6-25 microgram l (0.088 mg) 17:08: = 1 tab, Her restrepo oral tablet 00 PO, Daily, 0 Refill(s) Klor-Con 10 2020-0 No = 1 tab, Me moria 6-25 PO, BID, 0 l 17:08: Refill(s) [facility] 00 3 ML 2020-0 No 10 unit, Memoria Insulin, 6-25 SUB-Q, l Aspart, 17:08: TID-Before Herm mercy Human 100 00 Meals, 0 UNT/ML Pen Refill(s) Injector [NovoLog] Insulin 2019-0 No 20 unit, Memori a Glargine 6-25 0.2 mL, l 100 UNT/ML 02:00: Route: Gerda nn Injectable 00 SUB-Q, Solution Drug form: [Lantus] SOLN, Bedtime, Dosing Weight 90, kg, Start date: 11/23/19 21:00:00 CDT, Duration: 30 day, Stop date: 12/22/19 21:00:00 CDT, 0 Insulin 2019-0 No Notes: Memoria regular -24 (Same as: l 23:05: Humulin R) [facility] 00 Roll in palms of hands gently; Do not shake vigorously . WASTE: F/P - Black; E - Municipal Trash Bin Stable for 31 days at room temperatur e Expires in days from ____Date Dextrose 2019-0 No 12.5 gm, Memor ia 50% Syringe 11-22 25 mL, l ([id number]) 22:47: Route: [facility] IVP, Drug Form: INJ, Dosing Weight 90, kg, PRN, PRN Blood Glucose Results, Start date: 11/23/19 17:47:00 CDT, Duration: 30 day, Stop date: 12/23/19 17:46:00 CDT, 0 Glucagon 2019-0 No 1 mg, Memoria 6-24 Route: IM, l 22:47: Drug form: [facility] 00 PDR/INJ, PRN, Dosing Weight 90, kg, PRN Blood Glucose Results, Start date: 11/23/19 17:47:00 CDT, Duration: 30 day, Stop date: 12/23/19 17:46:00 CDT, 0 Insulin 2020-0 No Notes: Memoria regular 6-24 (Same as: l 22:47: Humulin R) Roll in palms of hands gently; Do not shake vigorously . WASTE: F/P - Black; E - Municipal Trash Bin Stable for 31 days at room temperatur e Expires in days from ____Date gabapentin No Notes: Memor ia -24 (Same as: l 21:00: Neurontin) Lovenox No Notes: Memoria -24 (Same as: l 16:42: Lovenox) Lasix No Notes: Memoria -24 (Same as: l 15:44: Lasix) May cause GI upset. Give with food or milk. Kayexalate No 15 gm, Memor ia 11-22 Route: PO, l 15:36: Drug form: SUSP, ONCE, Dosing Weight 90, kg, Start date: 11/23/19 10:36:00 CDT, Stop date: 11/23/19 10:36:00 CDT Insulin No 5 unit, Memoria regular 11-22 Route: l 15:35: IVP, ONCE, Dosing Weight 90, kg, Start date: 11/23/19 10:35:00 CDT, Stop date: 11/23/19 10:35:00 CDT Dextrose No 50 mL, Memoria 50% Syringe 11-22 Route: l (D50W) 15:35: IVP, Dosing Weight 90, kg, ONCE, Start date: 11/23/19 10:35:00 CDT, Stop date: 11/23/19 10:35:00 CDT normal 0 No 1,000 mL, Memori a saline 0.9% 11-22 Rate: 75 l IV 1,000 mL 15:33: ml/hr, Infuse over: 13.3 hr, Route: IV, Dosing Weight 90 kg, Total Volume: 1,000, Start date: 11/23/19 10:33:00 CDT, Duration: 30 day, Stop date: 12/23/19 10:32:00 CDT, 1.98, m2, 0 Zoloft No Notes: Memoria 6-24 (Same as: l 14:00: Zoloft) Prednisone No Notes: Memor ia 6-24 Take with l 14:00: food. Docusate No Notes: Memoria 6-24 (Same as: l 12:53: Colace) (Do Not Crush) sennosides, No Notes: Kalia aida PRISON -24 (Same as: l 12:53: Senokot) Albuterol No Notes: Memori a 0.833 MG/ML 11-22 (Same as: l / 11:46: Duoneb) Ipratropium 00 [place] 0.167 MG/ML Inhalant Solution Synthroid No Notes: Memori a 6-24 Take 1 l 11:30: hour before or 2 hours after meal; Enteral feeds may interefere with the absorption of this medication . (Same as:Synthro id) remove No Notes: Memoria patch 11-22 Remove l 10:00: patch 12 [place] 00 hours after applicatio n each day. Pyridostigm No Notes: Kalia aida ine 24 (Same as: l 05:00: Mestinon) Amlodipine No Notes: Memor ia 6-24 (Same as: l 04:45: Norvasc) Enoxaparin No Notes: Memor ia 11-21 (Same as: l 22:00: Lovenox) Lidocaine No Notes: Memori a Hydrochlori 11-21 Apply only l de 0.05 22:00: once for Berto n MG/MG 00 up to 12 Transdermal hours in a Patch 24-hour [Lidoderm] period (12 hours on and 12 hours off). (Same as: Lidoderm) "Remove old patch before applicatio n of new patch" Dextrose No 12.5 gm, Memor ia 50% Syringe 11-21 25 mL, l (D50W) 21:16: Route: Jorge Alberto 00 IVP, Drug Form: INJ, Dosing Weight 100, kg, PRN, PRN Blood Glucose Results, Start date: 11/22/19 16:16:00 CDT, Duration: 30 day, Stop date: 12/22/19 16:15:00 CDT, 0 Glucagon No 1 mg, Memoria 6- Route: IM, l 21:16: Drug form: [place] 00 PDR/INJ, PRN, Dosing Weight 100, kg, PRN Blood Glucose Results, Start date: 11/22/19 16:16:00 CDT, Duration: 30 day, Stop date: 12/22/19 16:15:00 CDT, 0 Insulin 2020-0 No Notes: Memoria regular 6-23 (Same as: l 21:16: Humulin R) Roll in palms of hands gently; Do not shake vigorously . WASTE: F/P - Black; E - Municipal Trash Bin Stable for 31 days at room temperatur e Expires in days from ____Date Hydralazine No Notes: Kalia aida - (Same as: l 21:16: Apresoline ) Push over 5 minutes Acetaminoph No Notes: Max Memoria en 11-21 acetaminop l 21:10: hen 4000 mg/day (4 gm/day). (Same as: Tylenol Extra Strength) gabapentin No Notes: Memor ia - (Same as: l 21:10: Neurontin) Tramadol No Notes: Not Mem oria 6-23 to exceed l 21:10: 400mg/day. (Same As: Ultram) Saline No Notes: Memoria Flush 0.9% 6- Same as: l 21:09: BD Posiflush Sterile Ativan No Notes: Memoria 6-23 (Same as: l 20:29: Ativan) Ativan No 1 mg, Memoria 6-23 Route: l 20:28: IVP, Drug form: INJ, ONCE, Dosing Weight 100, kg, PRN as needed for anxiety, Priority: Routine, Start date: 11/22/19 15:28:00 CDT Calcium No 500 mL, Memoria Chloride 11-21 Infuse l 0.0014 16:17: Over: 1 [place] MEQ/ML / 00 hr, Route: Potassium IV, ONCE, Chloride Priority: 0.004 STAT, MEQ/ML / Dosing Sodium Weight 100 Chloride kg, Start 0.103 date: MEQ/ML / 11/22/19 Sodium 11:17:00 Lactate CDT, Stop 0.028 date: MEQ/ML 11/22/19 Injectable 11:17:00 Solution CDT Iohexol 2019- No 150 mL, Memoria 11-21 Route: l 14:50: IVP, Drug Form: SOLN, Dosing Weight 100, kg, ONCALL, STAT, Start date: 11/22/19 9:50:00 CDT, Duration: 1 doses or times, Dose = 2.2ml/kg, Max dose = 150ml -- "To be infused by Radiology Staff ONLY" Fentanyl No Notes: Memoria 11-21 (Same as: l 12:54: Sublimaze) Preservat kimberly free. Calcium No 1,000 mL, Memor ia Chloride 11-21 Infuse l 0.0014 12:32: Over: 1 Jorge Alberto MEQ/ML / 00 hr, Route: Potassium IV, ONCE, Chloride Priority: 0.004 STAT, MEQ/ML / Dosing Sodium Weight 100 Chloride kg, Start 0.103 date: MEQ/ML / 11/22/19 Sodium 7:32:00 Lactate CDT, Stop 0.028 date: MEQ/ML 11/22/19 Injectable 7:32:00 Solution CDT Iohexol No 100 mL, Memoria 11-21 Route: l 12:08: IVP, Drug Form: SOLN, Dosing Weight 100, kg, ONCALL, STAT, Start date: 11/22/19 7:08:00 CDT, Duration: 1 doses or times, Dose = 2.2ml/kg, Max dose = 100ml -- "To be infused by Radiology Staff ONLY" heparin 2018-06 Yes Notes: Memoria flush 0-04 (Same as: l 23:00: Heparin Lock Flush) heparin 2018-06 No 100 unit, Memor ia 0- Route: l 22:24: IVP, ONCE, [place] 00 Dosing Weight 100, kg, Start date: 03/04/19 17:24:00 CDT, Stop date: 03/04/19 17:24:00 CDT rosuvastati 2018-06 Yes 20 mg = 2 M emoria n 10 mg 0-04 tab, PO, l oral tablet 21:12: Bedtime, # [place] 17 180 tab, 3 Refill(s) amLODIPine 2018-06 Yes 10 mg, PO, M emoria 10 mg oral 0-04 Daily, # l tablet 21:09: 30 tab, 0 Berto n 00 Refill(s) Ergocalcife 2018-06 Yes 50,000 Kalia aida rol 22179 0-04 IntlUnit = l UNT Oral 21:09: [...] oral 0-04 tab, PO, l tablet 21:09: [id number], X Gerda nn 00 7 day, # 14 tab, 0 Refill(s) meclizine 2018-06 Yes 12.5 mg = Mem oria 12.5 mg 0-04 1 tab, PO, l oral tablet 21:09: TID, PRN He rmann 00 Dizziness, X 7 day, # [...] tab, PO, l tablet 21:09: Daily, # Jorge Alberto 00 150 tab, 0 Refill(s) pyridostigm 2018-06 [...] 2 tab, PO, Memoria azole 800 0-04 [id number], X l MG / 21:09: 7 day, # [place] Trimethopri 00 28 tab, 0 m 160 [...] oral 0-04 tab, PO, l tablet 18:44: [id number], 0 Gerda nn 00 Refill(s) meclizine 2018-06 No 12.5 mg = Mem oria 12.5 mg 0-04 1 tab, PO, l oral tablet 18:44: TID, PRN He rmann 00 Dizziness, 0 Refill(s) melatonin 3 2018-06 No 6 mg = 2 Me moria mg oral 0-04 tab, PO, l tablet 18:44: Bedtime, Jorge Alberto 00 PRN Sleep, 0 Refill(s) Metronidazo 2018-06 No 500 mg = 1 Memoria le 500 MG 0-04 tab, PO, l Oral Tablet 18:44: [id number], 0 H ermann 00 Refill(s) QUEtiapine 2018-06 No 25 mg = 1 Me moria 25 mg oral 0-04 tab, PO, l tablet 18:44: Bedtime, 0 Gerda nn 00 Refill(s) Sulfamethox 2018-06 No 2 tab, PO, Memoria azole 800 0-04 [id number], 0 l MG / 18:44: Refill(s) Jorge Alberto Trimethopri 00 m 160 MG Oral Tablet [Bactrim] Acetaminoph 2018-06 No 650 mg = 2 Memoria en 325 MG 0-04 tab, PO, l Oral Tablet 18:44: Q6H, PRN He rmann 00 Pain Score 7-10, 0 Refill(s) Ergocalcife 2018-06 No 50,000 Kalia aida rol 61349 0-04 IntlUnit = l UNT Oral 18:44: 1 cap, PO, Her restrepo Capsule 00 Q7D, 0 Refill(s) Famotidine 2018-06 No 20 mg = 1 Me moria 20 MG Oral 0-04 tab, PO, l Tablet 18:44: Daily, 0 Jorge Alberto 00 Refill(s) Hydroxyzine 2018-06 No 25 mg = 1 M emoria Hydrochlori 0-04 cap, PO, l de 25 MG 18:44: QID, PRN Gerda nn Oral 00 Anxiety, 0 Capsule Refill(s) predniSONE 2018-06 No 25 mg = 5 Me moria 5 mg oral 0-04 tab, PO, l tablet 18:44: Daily, 0 [place] 00 Refill(s) Flagyl 2018-06 No 500 mg, 1 Memori a 0-04 tab, l 14:00: Route: PO, Jorge Alberto 00 Drug form: TAB, [id number], Dosing Weight 100, kg, Start date: 03/04/19 9:00:00 CDT, Duration: 14 day, Stop date: 03/18/19 1:00:00 CDT, ABX Indication : Skin/Soft Tissue Infection, 0 Furosemide 2018-06 No Notes: Memor ia 40 MG Oral 0-03 (Same as: l Tablet 14:00: Lasix) Jorge Alberto [Lasix] 00 May cause GI upset. Give with food or milk. Meclizine 2018-06 No Notes: Memori a 0- (Same as: l 21:55: Antivert) pyridostigm 2018-06 No 60 mg = 1 M emoria ine 60 mg 0- tab, PO, l oral tablet 18:30: TID, # 180 tab, 0 Refill(s) Hydroxyzine No Notes: Kalia [...] oria 02-26 tab, l 22:00: Route: PO, [place] 00 Drug form: TAB, [id number], Dosing Weight 90.909, kg, Start date: 02/26/19 17:00:00 CDT, Duration: 10 day, Stop date: 03/08/19 8:00:00 CDT, ABX Indication : Skin/Soft Tissue Infection, 0 Sulfamethox No 2 tab, Kalia aida azole 800 02-26 Route: PO, l MG / 22:00: Drug Form: [place] Trimethopri 00 TAB, m 160 MG Dosing Oral Tablet Weight [Bactrim] 90.909, kg, [id number], Start date: 02/26/19 17:00:00 CDT, Duration: 10 day, Stop date: 03/08/19 5:00:00 CDT, 0 Lactated 2018-0 No Route: IV, Mem oria Ringers 02-26 Total l Injection 18:00: Volume: Gerda nn IV (ANES) 00 1,000, 1000 mL Start date: 02/26/19 13:00:00 CDT, Stop date: 02/26/19 14:00:00 CDT lidocaine 2018-0 No Route: IV, Me moria (ANES) 02-26 Drug form: l 17:48: INJ, ONCE, Stop date: 02/26/19 12:48:00 CDT propofol 2018-0 No Route: IV, Mem oria (ANES) 02-26 Drug form: l 17:48: INJ, ONCE, Stop date: 02/26/19 12:48:00 CDT fentaNYL 2018-0 No Route: IV, Mem oria (ANES) 02-26 Drug form: l 17:48: INJ, ONCE, Stop date: 02/26/19 12:48:00 CDT phenylephri 2018-0 No Route: IV, Memoria ne (ANES) 02-26 Drug form: l 17:48: INJ, ONCE, Stop date: 02/26/19 12:48:00 CDT ePHEDrine 2018-0 No Route: IV, Me moria (ANES) 02-26 Drug form: l 17:48: INJ, ONCE, Stop date: 02/26/19 12:48:00 CDT Hydralazine 2018-0 No 10 mg, Kalia aida 02-26 Route: l 17:36: IVP, [place] 00 Q20Min, Dosing Weight 90.909, kg, PRN Elevated BP, Start date: 02/26/19 12:36:00 CDT, Duration: 2 doses or times, Stop date: Limited # of times Labetalol 0 No 10 mg, Memori a 02-26 Route: [...] aida 02-26 Route: l 17:36: IVP, PRN, Jorge Alberto Dosing Weight 90.909, kg, PRN Benzodiaze pine Reversal, Initial dose, Start date: 02/26/19 12:36:00 CDT, Duration: 30 day, Stop date: 03/28/19 12:35:00 CDT Naloxone 2019-0 No 0.4 mg, Memori a 02-26 Route: l 17:36: IVP, [place] 00 Q2MIN, Dosing Weight 90.909, kg, PRN Narcotic Reversal, Start date: 02/26/19 12:36:00 CDT, Duration: 8 doses or times, Stop date: Limited # of times Ondansetron 2019-0 No 4 mg, Memor ia 02-26 Route: l 17:36: IVP, ONCE, Jorge Alberto Dosing Weight 90.909, kg, PRN Nausea & Vomiting, Start date: 02/26/19 12:36:00 CDT insulin, 2019-0 No Notes: Memoria isophane 02-23 (Same as: l 14:00: Humulin N) Roll in palms of hands gently; Do not shake vigorously . WASTE: F/P - Black; E - Municipal Trash Bin Stable for 31 days at room temperatur e Expires in days from ____Date Labetalol 2019-0 No 10 mg, Memori a 02-23 Route: l 04:53: IVP, [place] 00 Q5Min, Dosing Weight 90.909, kg, PRN Elevated BP, Start date: 02/22/19 23:53:00 CDT, Duration: 5 doses or times, Stop date: Limited # of times Acetaminoph 2019-0 No 1,000 mg, M emoria en 02-23 Route: PO, l 04:53: Drug form: Jorge Alberto 00 TAB, ONCE, Dosing Weight 90.909, kg, [...] aida 02-23 Route: l 04:53: IVP, PRN, Dosing Weight 90.909, kg, PRN Benzodiaze pine [...] ia 02-23 Route: l 04:53: IVP, ONCE, Jorge Alberto 00 Dosing Weight 90.909, kg, PRN Nausea & Vomiting, Start date: 02/22/19 23:53:00 CDT Insulin 2019-0 No 2 unit, Memoria regular 02-23 Route: l 04:53: SUB-Q, [place] 00 Sliding Scale, Dosing Weight 90.909, kg, PRN [...] ia 02-22 Take with l 14:00: food. Saline 0 No 10 mL, Memoria Flush 0.9% 02-21 Route: l 21:00: IVP, Drug Form: INJ, Dosing Weight 90.909, kg, Q8H, Start date: 02/21/19 16:00:00 CDT, Duration: 30 day, Stop date: 03/23/19 8:00:00 CDT Lidocaine 2018-0 No 5 mL, Memoria Hydrochlori 02-21 Route: l de 10 MG/ML 20:00: INTRADERM, [place] Injectable Dosing Solution Weight 90.909, kg, ONCALL, For PICC line insertion. , Start date: 02/21/19 15:00:00 CDT, Duration: 30 day, Stop date: 03/23/19 14:59:00 CDT Saline 0 No 10 mL, Memoria Flush 0.9% 02-21 Route: l 19:42: IVP, Drug Form: INJ, Dosing Weight 90.909, kg, PRN, PRN Line Flush, Start date: 02/21/19 14:42:00 CDT, Duration: 30 day, Stop date: 03/23/19 14:41:00 CDT Lidocaine 2019-0 No 5 mL, Memoria Hydrochlori 02-21 Route: l de 10 MG/ML 19:00: INTRADERM, Jorge Alberto Injectable Dosing Solution Weight 90.909, kg, ONCALL, For PICC line insertion. , Start date: 02/21/19 14:00:00 CDT, Duration: 30 day, Stop date: 03/23/19 13:59:00 CDT Saline No 10 mL, Memoria Flush 0.9% - Route: l 18:20: IVP, Drug Jorge Alberto 00 Form: INJ, Dosing Weight 90.909, kg, PRN, PRN Line Flush, Start date: 02/21/19 13:20:00 CDT, Duration: 30 day, Stop date: 03/23/19 13:19:00 CDT Lidocaine No 2 spray, Kalia aida Hydrochlori 02-21 Route: l de 20 MG/ML 18:20: TOP, ONCE, Jorge Alberto Topical 00 Start [place] date: 02/21/19 13:20:00 CDT, Stop date: 02/21/19 13:20:00 CDT Lidocaine No Notes: Memori a Hydrochlori - (Same as: l de 10 MG/ML 17:00: Xylocaine) Jorge Alberto Injectable 00 Solution Saline No 10 mL, Memoria Flush 0.9% 02-21 Route: l 16:54: IVP, Drug [place] 00 Form: INJ, Dosing Weight 90.909, kg, PRN, PRN Line Flush, Start date: 02/21/19 11:54:00 CDT, Duration: 30 day, Stop date: 03/23/19 11:53:00 CDT Saline No Notes: Memoria Flush 0.9% 9-23 (Same as: l 05:00: BD [place] 00 Posiflush) Lidocaine No Notes: Memori a Hydrochlori - Preservati l de 10 MG/ML 22:00: ve free. He rmann Injectable 00 (Same as: Solution Xylocaine MPF) Saline No Notes: Memoria Flush 0.9% 9-22 (Same as: l 21:25: BD [place] 00 Posiflush) insulin, No Notes: Memoria isophane 9-22 (Same as: l 12:25: Humulin N) [place] 00 Roll in palms of hands gently; Do not shake vigorously . WASTE: F/P - Black; E - Municipal Trash Bin Stable for 31 days at room temperatur e Expires in days from ____Date Melatonin No Notes: Memori a 02-20 (Same as: l 08:41: Melatonin) Jorge Alberto Zyprexa No Notes: Memoria 02-20 (Same As: l 04:51: ZyPREXA [place] IM). insulin, No Notes: Memoria isophane 02-19 [...] by Radiology Staff ONLY" insulin No Notes: Soyoria detemir 02-18 Non-Formul l 22:36: jordi Drug (Same as Levemir) "Single Patient Use Only" Do not hold insulin without contacting prescriber WASTE: F/P - Black; E - Municipal Trash Bin Stable for 42 days at room temperatur e Expires in days from ____Date insulin No Notes: Memoria detemir 02-18 Non-Formul l 14:00: jordi Drug [place] 00 (Same as Levemir) "Single Patient Use [...] s with feeding tube less than 14 [place] (Dobhoff, J-tube etc) and pediatric and patients. PlasmaLyte No Notes: Memor ia A PH-7.4 02-18 (Same as: l 1,000 mL 12:26: Isolyte S mercy PH 7.4) insulin No Notes: Memoria detemir 02-18 Non-Formul l 02:00: jordi Drug Jorge Alberto 00 (Same as Levemir) "Single Patient Use Only" Do not hold insulin without contacting prescriber WASTE: F/P - Black; E - Municipal Trash Bin Stable for 42 days at room temperatur e Expires in days from ____Date Seroquel No Notes: Memoria 02-18 (Same as: l 02:00: SEROquel) insulin No Notes: Memoria detemir 02-17 Non-Formul l 22:00: jordi Drug Jorge Alberto 00 (Same as Levemir) "Single Patient Use Only" Do not hold insulin without contacting prescriber WASTE: F/P - Black; E - Municipal Trash Bin Stable for 42 days at room temperatur e Expires in days from ____Date Iohexol No Notes: Memoria 02-17 (same l 14:52: as:Omnipaq [place] 00 ue 350). WASTE: F/P - Black; E - Municipal Trash Bin insulin No Notes: Memoria detemir 02-17 Non-Formul l 14:38: jordi Drug (Same as Levemir) "Single Patient [...] ___ mg ertapenem No Notes: Me moria 02-16 MEDICATION l 22:00: WASTE Product Size: 1000 mg Product Wasted: ___ mg vancomycin No 2000 mg: Me moria + Sodium 02-16 infuse l Chloride 14:30: over 2.5 Gerda nn 0.9% IV 500 00 hours For mL adult patients only: Round to nearest 250 mg per Medical Staff approval MEDICATION WASTE Product Size: 1000 mg Product Wasted: ___ mg Famotidine No Notes: Memor ia 02-16 (Same as: l 14:00: Pepcid) vancomycin No 2000 mg: Me moria + Sodium 18 infuse l Chloride 14:00: over 2.5 Gerda nn 0.9% IV 500 00 hours For mL adult patients only: Round to nearest 250 mg per Medical Staff approval MEDICATION WASTE Product Size: 1000 mg Product Wasted: ___ mg Vancomycin No 1,000 mg, Me moria 02-16 Route: l 13:00: IVPB, Drug form: INJ, [id number], Dosing Weight 90.909, kg, Start date: 02/16/19 8:00:00 CDT, Duration: 7 day, Stop date: 02/23/19 0:00:00 CDT, ABX Indication : Skin/Soft Tissue Infection Humalog No Notes: Memoria 02-14 (Same as: l 16:30: Humalog) Jorge Alberto 00 Roll in palms of hands gently; Do not shake vigorously . WASTE: F/P - Black; E - Municipal Trash Bin Stable for 28 days at room temperatur e. Expires in days from ____Date Levemir No Notes: Memoria 02-14 Non-Formul l 14:00: jordi Drug Jorge Alberto 00 (Same as Levemir) "Single Patient Use Only" Do not hold insulin without contacting prescriber WASTE: F/P - Black; E - Municipal Trash Bin Stable for 42 days at room temperatur e Expires in days from ____Date Humalog No Notes: Memoria 02-14 (Same as: l 12:30: Humalog) [place] Roll in palms of hands gently; Do [...] Memoria 02-14 Same as l 07:00: Merrem Jorge Alberto 00 MEDICATION WASTE Product Size: 500 mg Product Wasted: ___ mg Insulin No Notes: Memoria Lispro 02-14 (Same as: l 02:57: Humalog) Jorge Alberto Roll in palms of hands gently; Do not shake vigorously . WASTE: F/P - Black; E - Municipal Trash Bin Stable for 28 days at room temperatur e. Expires in days from ____Date Dextrose 2019-0 No 12.5 gm, Memor ia 50% Syringe 02-14 25 mL, l 01:33: Route: [place] 00 IVP, Drug Form: INJ, Dosing Weight 90.909, kg, PRN, PRN Blood Glucose Results, Start date: 02/13/19 20:33:00 CDT, Duration: 30 day, Stop date: 03/15/19 20:32:00 CDT, 0 Glucagon 2019-0 No 1 mg, Memoria 02-14 Route: IM, l 01:33: Drug form: [place] 00 PDR/INJ, PRN, Dosing Weight 90.909, kg, PRN Blood Glucose Results, Start date: 02/13/19 20:33:00 CDT, Duration: 30 day, Stop date: 03/15/19 20:32:00 CDT, 0 Insulin 2019-0 No Notes: Memoria Lispro 02-14 (Same as: l 01:33: Humalog) Roll in palms of hands gently; Do not shake vigorously . WASTE: F/P - Black; E - [employer] Trash Bin Stable for 28 days at room temperatur e. Expires in days from ____Date Dextrose 2019-0 No 25 mL, Memoria 50% Syringe 02-14 Route: l 01:32: IVP, Dosing Weight 90.909, kg, PRN, PRN Blood Glucose Results, Start date: 02/13/19 20:32:00 CDT, Duration: 30 day, Stop date: 03/15/19 20:31:00 CDT Glucagon 2019-0 No 1 mg, Memoria 02-14 Route: IM, l 01:32: PRN, Dosing Weight 90.909, kg, PRN Blood Glucose Results, Start date: 02/13/19 20:32:00 CDT, Duration: 30 day, Stop date: 03/15/19 20:31:00 CDT Insulin 2019-0 No 2 unit, Memoria regular 02-14 Route: l 01:32: SUB-Q, [place] 00 TID-Before Meals, Dosing Weight 90.909, kg, PRN Blood Glucose Results, Start date: 02/13/19 20:32:00 CDT, Duration: 30 day, Stop date: 03/15/19 20:31:00 CDT Morphine No Notes: Memoria 9-15 (Same l 22:52: as:MORPhin [place] 00 e Sulfate) Insulin No Notes: Memoria Lispro 9-15 (Same as: l 04:38: Humalog) Roll in palms of hands gently; Do not shake vigorously . WASTE: F/P - Black; E - Municipal Trash Bin Stable for 28 days at room temperatur e. Expires in days from ____Date Saline No Notes: Memoria Flush 0.9% 9-14 (Same as: l 21:00: BD [place] Posiflush) Ativan No Notes: Memoria 9-14 (Same as: l 17:02: Ativan) Lidocaine No 5 mL, Memoria Hydrochlori 9-14 Route: l de 10 MG/ML 17:00: INTRADERM, Jorge Alberto Injectable Dosing Solution Weight 90.909, kg, ONCALL, For PICC line insertion. , Start date: 02/12/19 12:00:00 CDT, Duration: 30 day, Stop date: 03/14/19 11:59:00 CDT Saline No Notes: Memoria Flush 0.9% 9-14 (Same as: l 16:23: BD Jorge Alberto 00 Posiflush) Morphine No Notes: Memoria 9-14 (Same l 16:12: as:MORPhin [place] 00 e Sulfate) Isolyte S No Notes: Memori a PH 7.4 9-14 (Same as: l 06:30: Isolyte S Jorge Alberto 00 PH 7.4) Isolyte S No Notes: Memori a PH-7.4 9-14 (Same as: l (Bolus) IV 03:53: Isolyte S He rmann PH7.4) Ativan No Notes: Memoria 9-13 (Same as: l 22:10: Ativan) [place] 00 Ativan No 1 mg, Memoria 9-13 Route: IV, l 22:08: ONCE, [place] 00 Dosing Weight 90.909, kg, Start date: 02/11/19 17:08:00 CDT, Stop date: 02/11/19 17:08:00 CDT Morphine No Notes: Memoria 9-13 (Same l 22:08: as:MORPhin e Sulfate) Sertraline No Notes: Memor ia -13 (Same as: l 14:00: Zoloft) Insulin No Notes: Memoria Lispro 13 (Same as: l 04:10: Humalog) Roll in palms of hands gently; Do not shake vigorously . WASTE: F/P - Black; E - Municipal Trash Bin Stable for 28 days at room temperatur e. Expires in days from ____Date Insulin No Notes: Memoria Lispro -13 (Same as: l 04:00: Humalog) Roll in palms of hands gently; Do not shake vigorously . WASTE: F/P - Black; E - Municipal Trash Bin Stable for 28 days at room temperatur e. Expires in days from ____Date Haloperidol No Notes: Kalia aida 02-11 (Same as: l 03:59: Haldol) Morphine No 1 mg, Memoria 02-10 Route: IV, l 18:32: ONCE, Dosing Weight 90.909, kg, Priority: STAT, Start date: 02/10/19 13:32:00 CDT, Stop date: 02/10/19 13:32:00 CDT vancomycin No 2001 mg: Me moria 02-10 infuse l 17:00: over 2.5 hours Levemir No Notes: Memoria 9-11 Non-Formul [...] 100 Memoria 9-11 ml/min, l 13:00: Time [place] Critical Medication , Start date: 02/09/19 8:00:00 CDT, Duration: 7 day, Stop date: 02/16/19 0:00:00 CDT, ABX Indication : Skin/Soft Tissue Infection Merrem No Notes: Memoria 02-09 Same as l 13:00: Merrem MEDICATION WASTE Product Size: 500 mg Product Wasted: _0__ mg Vancomycin No 2001 mg: Me moria 02-09 infuse l 12:54: over 2.5 hours For adult patients only: Round to nearest 250 mg per Medical Staff approval MEDICATION WASTE Product Size: 1000 mg Product Wasted: ___ mg Isolyte S No Notes: Memori a PH-7.4 02-09 (Same as: l (Bolus) IV 12:52: Isolyte S PH 7.4) Clindamycin No Notes: Kalia aida 02-09 (Same As: l 03:00: Cleocin) Levemir No Notes: Memoria 02-09 Non-Formul l 00:30: jordi Drug (Same as Levemir) "Single Patient Use Only" Do not hold insulin without contacting prescriber WASTE: F/P - Black; E - Municipal Trash Bin Stable for 42 days at room temperatur e Expires in days from ____Date Humalog No Notes: Memoria - (Same as: l 12:30: Humalog) Roll in palms of hands gently; Do not shake vigorously . WASTE: F/P - Black; E - Municipal Trash Bin Stable for 28 days at room temperatur e. Expires in days from ____Date Dextrose 2018-0 No 12.5 gm, Memor ia 50% Syringe 9-10 25 mL, l 06:33: Route: Jorge Alberto IVP, Drug Form: INJ, Dosing Weight 90.909, kg, PRN, PRN Blood Glucose Results, Start date: 02/08/19 1:33:00 CDT, Duration: 30 day, Stop date: 03/10/19 1:32:00 CDT, 0 Glucagon No 1 mg, Memoria 9-10 Route: IM, l 06:33: Drug form: [place] 00 PDR/INJ, PRN, Dosing Weight 90.909, kg, PRN Blood Glucose Results, Start date: 02/08/19 1:33:00 CDT, Duration: 30 day, Stop date: 03/10/19 1:32:00 CDT, 0 Insulin No Notes: Memoria Lispro 9-10 (Same as: l 06:33: Humalog) Jorge Alberto 00 Roll in palms of hands gently; Do not shake vigorously . WASTE: F/P - Black; E - Municipal Trash Bin Stable for 28 days at room temperatur e. Expires in days from ____Date Humalog 0 No Notes: Memoria 9-10 (Same as: l 03:51: Humalog) [place] 00 Roll in palms of hands gently; Do not shake vigorously . WASTE: F/P - Black; E - Municipal Trash Bin Stable for 28 days at room temperatur e. Expires in days from ____Date NS (Bolus) 0 No 500 mL, Kalia aida IV 9-10 500 ml/hr, l 03:50: Infuse Jorge Alberto 00 Over: 1 hr, Route: IV, ONCE, Priority: STAT, Dosing Weight 90.909 kg, Start date: 02/07/19 22:50:00 CDT, Stop date: 02/07/19 22:50:00 CDT normal 2018-0 No 1,000 mL, Memori a saline 0.9% 02-08 Rate: 75 l IV 1,000 mL 03:50: ml/hr, Herm mercy 00 Infuse over: 13.3 hr, Route: IV, Dosing Weight 90.909 kg, Total Volume: 1,000, Start date: 02/07/19 22:50:00 CDT, Duration: 30 day, Stop date: 03/09/19 22:49:00 CDT, 1.99, m2, 0 remove [id number] No 1 patch, Memoria patch 02-08 Route: l 02:00: TOP, Jorge Alberto 00 Bedtime, Drug form: ERFILM, Start date: 02/07/19 21:00:00 CDT, Duration: 30 day, Stop date: 03/08/19 21:00:00 CDT, 0 Humalog 2018-0 No Notes: Memoria 9-10 (Same as: l 01:20: Humalog) [place] 00 Roll in palms of hands gently; [...] a regular 02-07 Route: l 22:12: SUB-Q, [place] 00 ONCE, Dosing Weight 90.909, kg, Start date: 02/07/19 17:12:00 CDT, Stop date: 02/07/19 17:12:00 CDT Lidocaine 2018-0 No 1 patch, Kalia aida 0.05 MG/MG 02-07 Route: l Transdermal 19:00: TOP, Berto n Patch 00 Daily, Drug form: FILM, Start date: 02/07/19 14:00:00 CDT, Duration: 30 day, Stop date: 03/09/19 9:00:00 CDT, 0 Ergocalcife 2018-0 No 50,000 Kalia aida rol [id number] 02-07 IntlUnit, l UNT Oral 18:16: 1 cap, Jorge Alberto Capsule 00 Route: PO, Drug form: CAP, Q7D, Dosing Weight 90.909, kg, Start date: 02/07/19 13:16:00 CDT, Duration: 30 day, Stop date: 04/04/19 9:00:00 STATEMENT [employer], 0 Ativan 2018-0 No Notes: Memoria 02-07 (Same as: l 17:00: Ativan) Calcium No Notes: Memoria Carbonate 02-06 (calcium l 1250 MG / 22:00: carbonate- He rm Cholecalcif 00 vit D alpa 400 500mg-400u UNT nit chew Chewable TAB) Same Tablet as: Oscal 500+D heparin No Notes: Memoria 02-06 porcine l 21:00: heparin tramadol 0 No 50 mg, 1 Memor ia hydrochlori 02-06 tab, l de 50 MG 16:20: Route: PO, Her restrepo Oral Tablet Drug form: TAB, Q6H, Dosing Weight 90.909, kg, PRN Pain Score 7-10, Start date: 02/06/19 11:20:00 CDT, Duration: 30 day, Stop date: 03/08/19 11:19:00 CDT, 0 sterile 2018-0 No 2.1 mL, Memoria water 02-06 Route: l 16:17: MISC, Drug Form: INJ, BID, PRN, Start date: 02/06/19 11:17:00 CDT, Duration: 30 day, Stop date: 03/08/19 11:16:00 CDT, For Zyprexa reconstitu tion, 0 olanzapine No 10 mg, Memor ia 02-06 Route: IM, l 16:07: Drug form: [place] 00 INJ, BID, Dosing Weight 90.909, kg, PRN Agitation, Start date: 02/06/19 11:07:00 CDT, Duration: 30 day, Stop date: 03/08/19 11:06:00 CDT, 0 Sertraline No Notes: Memor ia 02-06 (Same as: l 14:00: Zoloft) Furosemide No Notes: Memor ia 40 MG Oral 02-06 (Same as: l Tablet 14:00: Lasix) [place] [Lasix] May cause GI upset. Give with [...] 03/07/19 9:00:00 CDT, 0 rosuvastati No Notes: Kalia aida n 02-06 (Same As: l 02:01: Crestor) tramadol No Notes: Not Mem oria hydrochlori 02-05 to exceed l de 50 MG 22:36: 400mg/day. Her restrepo Oral Tablet (Same As: Ultram) Dextrose No 12.5 gm, Memor ia 50% Syringe 02-05 25 mL, l 21:39: Route: IVP, Drug Form: INJ, Dosing Weight 90.909, kg, PRN, PRN Blood Glucose Results, Start date: 02/05/19 16:39:00 CDT, Duration: 30 day, Stop date: 03/07/19 16:38:00 CDT, 0 Glucagon 2019- No 1 mg, Memoria 02-05 Route: IM, l 21:39: Drug form: [place] 00 PDR/INJ, PRN, Dosing Weight 90.909, kg, PRN Blood Glucose Results, Start date: 02/05/19 16:39:00 CDT, Duration: 30 day, Stop date: 03/07/19 16:38:00 CDT, 0 Insulin 2019- No Notes: Memoria regular 02-05 (Same as: l 21:39: Humulin R) Jorge Alberto 00 Roll in palms of hands gently; Do not shake vigorously . WASTE: F/P - Black; E - Municipal Trash Bin Stable for 31 days at room temperatur e Expires in days from ____Date Mestinon 2018- No Notes: Memoria 02-05 (Same as: l 21:00: Mestinon) [place] 00 Prednisone 2019- No 30 mg, 3 Mem oria 02-05 tab, l 19:40: Route: PO, Jorge Alberto 00 Drug form: TAB, Daily, Dosing Weight 90.909, kg, Priority: NOW, Start date: 02/05/19 14:40:00 CDT, Duration: 30 day, Stop date: 03/07/19 9:00:00 CDT, 0 insulin 2019- Yes 12 unit, Memori a lispro 100 8-12 SUB-Q, l units/mL 19:35: TID-Before Her restrepo injectable 00 Meals, 0 solution Refill(s) Insulin 2019- Yes 34 unit, Memori a Glargine 8-12 SUB-Q, l 100 UNT/ML 12:01: Daily, 0 Her restrepo Injectable 00 Refill(s) Solution [Lantus] Furosemide Yes 40 mg = 1 Me moria 40 MG Oral 8-12 tab, PO, l Tablet 12:01: BID [place] [Lasix] 00 Diuretic, 0 Refill(s) Furosemide 2018- No Notes: Memor ia 40 MG Oral 8-12 (Same as: l Tablet 11:00: Lasix) [place] [Lasix] 00 May cause GI upset. Give with food or milk. Furosemide No Notes: Memor ia 8-10 (Same as: l 11:00: Lasix) MEDICATION WASTE Product Size: 40 mg Product Wasted: ___ mg Sodium No Notes: SEE Memor ia Chloride 3% 01-07 RT l inhalation 01:37: DOCUMENTAT H ermann solution 00 ION (Same as: Hypertonic Saline 3%, Inhalation ) Furosemide No Notes: Memor ia 8-07 (Same as: l 16:00: Lasix) [place] 00 MEDICATION WASTE Product Size: 40 mg Product Wasted: ___ mg insulin Yes 36 unit, Memori a detemir 100 07 SUB-Q, l UNT/ML 14:58: BID, # 15 Berto n Injectable 00 mL, 3 Solution Refill(s), [Levemir] other Lasix No Notes: Memoria 8-06 (Same as: l 16:15: Lasix) Furosemide No Notes: Memor ia 40 MG Oral 05 (Same as: l Tablet 14:00: Lasix) Jorge Alberto [Lasix] 00 May cause GI upset. Give with food or milk. Amlodipine No Notes: Memor ia 8-04 (Same as: l 22:00: Norvasc) Ramipril No Notes: Memoria 8-04 (Same l 13:00: as:Altace) ceFAZolin No Notes: Memori a 8-04 (Same as l 11:00: Ancef) Calcium No Notes: Memoria Gluconate 01-01 WASTE: F/P l 14:30: - Sink; E - Municipal Trash Bin predniSONE No 40 mg = 2 Me moria 20 mg oral 01-01 tab, PO, l tablet 14:29: Daily, X Jorge Alberto 10 day, # 20 tab, 0 Refill(s), other insulin No 12 unit, Memori a lispro 100 -03 SUB-Q, l units/mL 14:29: TID-Before Her restrepo injectable 00 Meals, # solution 10 mL, 0 Refill(s), other insulin No 36 unit, Soyori a detemir 100 -03 SUB-Q, l UNT/ML 14:29: BID, # 30 Berto n Injectable 00 mL, 0 Solution Refill(s), [Levemir] other albumin No Notes: Feli human 5% 01-01 LOT#: l intravenous 14:27: [place] solution 00 ___Mfg:___ ___ (Same as: Albuminar) "blood product derivative " WASTE: F/P - Red; E -Red MEDICATION WASTE Product Size: 25 gm Product Wasted: ___ gm Prednisone No Notes: Memor ia 01-01 Take with l 14:00: food. [place] 00 Insulin No 34 unit, Memori a Glargine 01-01 0.34 mL, l 100 UNT/ML 14:00: Route: Gerda nn Injectable 00 SUB-Q, Solution Drug form: [Lantus] SOLN, Daily, Dosing Weight 92, kg, Start date: 01/01/19 9:00:00 CDT, Duration: 30 day, Stop date: 01/30/19 9:00:00 CDT, 0 Insulin No Notes: Memoria Lispro 12-31 (Same as: l 12:30: Humalog) [place] 00 Roll in palms of hands gently; [...] in days from ____Date Calcium No Notes: Memoria Gluconate 12-30 WASTE: F/P l 15:00: - Sink; E [place] 00 - Municipal Trash Bin albumin No Notes: Feli human 5% 12-30 LOT#: l intravenous 14:34: Jorge Alberto solution 00 ___Mfg:___ ___ (Same as: Albuminar) "blood product derivative " WASTE: F/P - Red; E -Red MEDICATION WASTE Product Size: 25 gm Product Wasted: _0__ gm Thyroxine No Notes: Memori a 12-30 Take 1 l 11:30: hour [place] 00 before or 2 hours after meal; Enteral feeds may interefere with the absorption of this medication . (Same as:Synthro id) insulin, No Notes: Soyoria isophane 12-30 (Same as: l 08:00: Humulin N) [place] Roll in palms of hands gently; Do [...] date: 01/29/19 0:38:00 CDT phenol No Notes: Memoria 12-30 Chlorasept l 05:37: ic [place] Jorge Alberto (Same as: Chlorasept ic, Sore Throat [place]) WASTE: F/P - Black; E - Municipal Trash Bin insulin, No Notes: Memoria isophane 12-30 (Same as: l 00:00: Humulin N) Jorge Alberto 00 Roll in palms of hands gently; Do not shake vigorously . WASTE: F/P - Black; E - Municipal Trash Bin Stable for 31 days at room temperatur e Expires in days from ____Date insulin, No 40 unit, Memor ia isophane 7-31 Route: l 16:00: SUB-Q, [place] 00 Q24H, Dosing Weight 92, kg, Start [...] Not Crush) sennosides, No Notes: Kalia aida PRISON 8.6 MG 7-31 (Same as: l Oral Tablet 14:00: Senokot) He rmann Prednisone No Notes: Memor ia 7-31 Take [...] 7-30 (Same as: l 14:59: Humulin N) Roll in palms of hands gently; Do not shake vigorously . WASTE: F/P - Black; E - Municipal Trash Bin Stable for 31 days at room temperatur e Expires in days from ____Date heparin No Notes: Memoria sodium, - porcine l porcine 21:00: heparin Jorge Alberto 2500 UNT/ML 00 Injectable Solution Dextrose No 12.5 gm, Memor ia 50% Syringe 12-27 25 mL, l 20:14: Route: Jorge Alberto IVP, Drug Form: INJ, Dosing Weight 92, kg, PRN, PRN Blood Glucose Results, Start date: 12/27/18 15:14:00 CDT, Duration: 30 day, Stop date: 01/26/19 15:13:00 CDT, 0 Glucagon No 1 mg, Memoria 12-27 Route: IM, l 20:14: Drug form: [place] 00 PDR/INJ, PRN, Dosing Weight 92, kg, PRN Blood Glucose Results, Start date: 12/27/18 15:14:00 CDT, Duration: 30 day, Stop date: 01/26/19 15:13:00 CDT, 0 Insulin No Notes: Memoria regular - (Same as: l 20:14: Humulin R) [place] 00 Roll in palms of hands gently; Do not shake vigorously . WASTE: F/P - Black; E - Municipal Trash Bin Stable for 31 days at room temperatur e Expires in days from ____Date insulin, No Notes: Memoria isophane - (Same as: l 14:44: Humulin N) [place] 00 Roll in palms of hands gently; Do not shake vigorously . WASTE: F/P - Black; E - Municipal Trash Bin Stable for 31 days at room temperatur e Expires in days from ____Date Zithromax No Notes: Memori a 250 mg oral 7-29 Take 1 l tablet 14:00: hour [place] 00 before or 2 hours after meals. (Same As: Zithromax) Lanolin No Notes: Memoria 0.157 MG/MG 7-29 (Same as: l / Menthol 05:46: Calmosepti He rmann 0.0044 00 ne) MG/MG / Petrolatum 0.24 MG/MG / Zinc Oxide 0.206 MG/MG Topical Ointment Famotidine No Notes: Memor ia 12-27 (Same as: l 03:00: Pepcid) Jorge Alberto 00 Midodrine No Notes: Memori a 12-26 (Same l 22:00: as:Proamat [place] 00 ine) albumin No Notes: Memoria human 5% 12-26 LOT#: l intravenous 14:08: [place] solution 00 ___ Mfg: WASTE: F/P - Red; E -Red (Same as: Albuminar) "blood product derivative " Midodrine No Notes: Memori a 12-26 (Same l 14:00: as:Proamat [place] 00 ine) azithromyci No Notes: Kalia aida n 500 mg 12-26 Take 1 l oral tablet 14:00: hour Berto n 00 before or 2 hours after meals. (Same As: Zithromax) Calcium No 3 gm, Memoria Gluconate 12-26 Route: IV, l 14:00: Continuous Jorge Alberto 00 , Dosing Weight 92, kg, Start date: 12/26/18 9:00:00 CDT, Duration: 30 day, Stop date: 01/25/19 8:59:00 CDT albumin No 2.25 Memoria human 5% 12-26 Liter, l intravenous 13:41: Route: IV, [place] solution 00 Dosing Weight 92, kg, ONCE, Start date: 12/26/18 8:41:00 CDT, Stop date: 12/26/18 8:41:00 CDT, Indication : Plasmapher esis Norepinephr No Notes: Not Memoria ine 12-26 for direct l 02:03: administra Jorge Alberto 00 tion - DILUTE. Protect from light. (Same as:Levophe d). Administer by either central venous catheter or peripheral ly-inserte d central catheter (PICC) line. Insulin No Notes: Memoria regular 100 12-26 Final l unit + 01:23: Concentrat Gerda nn 00 ion 1unit/1ml WASTE: F/P - Black; E - Municipal Trash Bin Dextrose No 6.25 gm, Memor ia 50% Syringe 12-26 12.5 mL, l 01:23: Route: [place] IVP, Drug Form: INJ, Dosing Weight 92, kg, PRN, PRN Abnormal Lab Result, Start date: 12/25/18 20:23:00 CDT, Duration: 30 day, Stop date: 01/24/19 20:22:00 CDT, 0 Famotidine No Notes: Memor ia 12-25 (Same as: l 22:00: Pepcid) Mestinon No Notes: Memoria - (Same as: l 21:00: Mestinon) Sodium No Notes: SEE Memor ia Chloride 3% 12-25 RT l inhalation 20:00: DOCUMENTAT H ermann solution ION (Same as: Hypertonic Saline 3%, Inhalation ) fondaparinu No Notes: Kalia aida x 12-25 (Same as: l 17:00: Arixtra) Albuterol 1 No Notes: SEE Memoria MG/ML 12-25 RT l Inhalant 16:11: DOCUMENTAT Her restrepo Solution ION (Same as: Proventil) Calcium No Notes: Memoria Gluconate 12-25 WASTE: F/P l 16:00: - Sink; E [place] - Municipal Trash Bin albumin No Notes: Memoria human 5% 12-25 LOT#: l intravenous 15:35: Jorge Alberto solution 00 ___Mfg:___ ___ (Same as: Albuminar) "blood product derivative " WASTE: F/P - Red; E -Red MEDICATION WASTE Product Size: 25 gm Product Wasted: ___ gm Prednisone No Notes: Memor ia 7-27 Take with l 14:00: food. [place] 00 Thyroxine No Notes: Memori a 7-27 Take 1 l 11:30: hour Jorge Alberto 00 before or 2 hours after meal; Enteral feeds may interefere with the absorption of this medication . (Same as:Synthro id) ocular No Notes: Memoria lubricant 12-25 (Same as: l 05:00: Lacri-Lube Jorge Alberto 00 , Puralube, Duratears Naturale, Artificial Tears, and Tears Again ) Prednisone No 50 mg = 1 Me moria 50 MG Oral 12-25 tab, PO, l Tablet 04:55: Daily, 0 Jorge Alberto 00 Refill(s) rosuvastati No 20 mg = 1 M emoria n 20 mg 12-25 tab, PO, l oral tablet 04:55: Bedtime, 0 [place] 00 Refill(s) ramipril 10 Yes 10 mg = 1 M emoria mg oral 12-25 cap, PO, l capsule 04:55: Daily, 0 Berto n 00 Refill(s) Amlodipine Yes 10 mg, PO, M emoria 12-25 Daily, 0 l 04:55: Refill(s) [place] 00 Furosemide No 80 mg, PO, M emoria 12-25 Daily, 0 l 04:55: Refill(s) Potassium Yes 20 mEq, Memor ia Chloride 12-25 PO, Daily, l 04:55: 0 [place] 00 Refill(s) Pyridostigm Yes 60 mg, PO, Memoria ine 12-25 Q8H, 0 l 04:55: Refill(s) sertraline Yes 25 mg = 1 Me moria 25 mg oral 12-25 tab, PO, l tablet 04:55: Daily, 0 Jorge Alberto 00 Refill(s) Thyroxine Yes 88 Memoria 12-25 microgram, l 04:55: PO, Daily, [place] 00 0 Refill(s) Alendronic Yes 70 mg = 1 Me moria acid 70 MG - tab, PO, 0 l Oral Tablet 04:55: Refill(s) H ermann [Fosamax] 00 Levemir No SUB-Q, 0 Memori a 12-25 Refill(s) l 04:55: [place] Trulicity Yes SUB-Q, 0 Kalia aida Pen 12-25 Refill(s) l 04:55: [place] 00 Famotidine No 20 mg, 2 Mem oria 7-27 mL, Route: l 02:00: IVP, Drug form: INJ, Q12H, Dosing Weight 102.273, kg, Start date: 12/24/18 21:00:00 CDT, Duration: 30 day, Stop date: 01/23/19 9:00:00 CDT, 0 docusate No Notes: Memoria sodium 7-27 (Same as: l 02:00: Colace) sennosides, No Notes: Kalia aida PRISON 8.6 MG 7-27 (Same as: l Oral Tablet 02:00: Senokot) He Ceftriaxone No Notes: Memoria 7-27 MEDICATION l 02:00: WASTE Product Size: 2000 mg Product Wasted: ___ mg Albuterol No Notes: Memori a 0.833 MG/ML -27 (Same as: l / 01:57: Duoneb) Ipratropium 00 [place] 0.167 MG/ML Inhalant Solution [DuoNeb] chlorhexidi No [...] mg Tylenol No 100.4 F, Memor ia - Start l 23:39: date: 12/24/18 18:39:00 CDT, [...] TPN. potassium No Notes: Memori a phosphate -26 (Same as: l 23:37: K Phosphate. ) Do not infuse phosphorou s concurrent ly in the same line as TPN or IVF that contains calcium. For double lumen central lines, phosphorou s may be infused in a separate lumen from TPN. 1 mMol phoshate has 1.47 mEq potassium Infuse over 4 hours potassium No Notes: Memori a phosphate-s - (Same as: l odium 23:37: Phos-NaK) Each 1.5 250 mg-280 gm pkt has mg-160 mg 250mg oral powder phosphorou for s. Mix reconstitut w/2.5oz ion water and stir. Magnesium No Notes: Memori a Sulfate 12-24 WASTE: F/P l 23:37: - Sink; E - Municipal Trash Bin Magnesium No Notes: Memori a Oxide - (Same as: l 23:37: Mag-Ox Jorge Alberto 00 400) Magnesium oxide 970bl=226k g elemental magnesium Dose=____m g magnesium oxide (___mg elemental magnesium) Calcium No Notes: Memoria Gluconate 12-24 WASTE: F/P l 23:37: - Sink; E Jorge Alberto - Municipal Trash Bin Calcium No Notes: Memoria Carbonate 12-24 (Same As: l 500 MG 23:37: Tums) [place] Chewable 00 Calcium Tablet Carbonate 500 mg = 200 mg elemental calcium Dose = mg calcium carbonate ( mg elemental calcium) Dextrose No 12.5 gm, Memor ia 50% Syringe 12-24 25 mL, l 23:37: Route: [place] IVP, Drug Form: INJ, Dosing Weight 102.273, kg, PRN, PRN Blood Glucose Results, Start date: 12/24/18 18:37:00 CDT, Duration: 30 day, Stop date: 01/23/19 18:36:00 CDT, 0 Glucagon No 1 mg, Memoria 12-24 Route: IM, l 23:37: Drug form: Jorge Alberto 00 PDR/INJ, PRN, Dosing Weight 102.273, kg, PRN Blood Glucose Results, Start date: 12/24/18 18:37:00 CDT, Duration: 30 day, Stop date: 01/23/19 18:36:00 CDT, 0 chlorhexidi No Notes: Kalia aida ne 12-24 (Same As: l gluconate 23:37: Peridex) Herm mercy 1.2 MG/ML 00 Mouthwash Insulin No Notes: Memoria regular 12-24 Roll in l 23:37: palms of [place] 00 hands gently; do not shake vigorously . (Same as: Humulin R) WASTE: F/P - Black; E - Municipal Trash Bin Stable for 31 days at room temperatur e Expires in days from Norepinephr No Notes: Not Memoria ine 12-24 for direct l 23:37: administra [place] tion - DILUTE. Protect from light. (Same as:Levophe d). Administer by either central venous catheter or peripheral ly-inserte d central catheter (PICC) line. Isolyte S No Notes: Memori a PH 7.4 7-26 (Same as: l 1,000 mL 23:37: Isolyte S mercy PH 7.4) Ibuprofen No Notes: Memori a 11-29 (Same as: l 14:35: Motrin) "Do Not Crush" Give with food. Tylenol No Notes: Max Kalia aida 11-29 acetaminop l 14:32: hen 4000 [place] 00 mg/day (4 gm/day). (Same as: Tylenol Extra Strength) Pyridostigm Pyridostigm Yes SUUR TAKE 1 [employer] [facility] [place] ine [place] 6-25 BILICILER TABLET BY ity of 60 [...] Memoria 4-25 (Same as: l 17:00: Mestinon) Insulin No Notes: Memoria Lispro 4-25 (Same as: l 08:43: Humalog) Roll in palms of hands gently; Do not shake vigorously . WASTE: F/P - Black; E - Municipal Trash Bin Stable for 28 days at room temperatur e. Expires in days from ____Date Glucagon No 1 mg, Memoria 4-25 Route: IM, l 08:43: Drug form: Jorge Alberto 00 PDR/INJ, PRN, Dosing Weight 91.818, kg, PRN Blood Glucose Results, Start date: 09/23/18 3:43:00 CDT, Duration: 30 day, Stop date: 10/23/18 3:42:00 CDT Dextrose No 12.5 gm, Memor ia 50% Syringe 4-25 25 mL, l 08:43: Route: IVP, Drug Form: INJ, Dosing Weight 91.818, kg, PRN, PRN Blood Glucose Results, Start date: 09/23/18 3:43:00 CDT, Duration: 30 day, Stop date: 10/23/18 3:42:00 CDT Arixtra No Notes: Memoria 4-24 (Same as: l 22:00: Arixtra) Famotidine No Notes: Memor ia 4-24 (Same as: l 14:00: Pepcid) sennosides, No Notes: Kalia aida PRISON 8.6 MG 4-24 (Same as: l Oral [...] MG / 14:00: Senokot-S) noside Equiv. to PRISON 8.6 MG [place]-Colac Oral Tablet e. Levothroid Yes 88 Memoria 88 mcg 4-24 microgram l (0.088 mg) 02:02: = 1 tab, Her restrepo oral tablet 00 PO, Daily, 0 Refill(s) rosuvastati No Notes: Kalia aida n 4-24 (Same As: l 02:00: Crestor) Insulin No 20 unit, Soyori a Glargine -24 0.2 mL, l 100 UNT/ML 02:00: Route: Gerda nn Injectable 00 SUB-Q, Solution Drug form: SOLN, Bedtime, Dosing Weight 91.818, kg, Start date: 09/21/18 21:00:00 CDT, Duration: 30 day, Stop date: 10/20/18 21:00:00 CDT Sertraline No Notes: Memor ia -24 (Same as: l 00:00: Zoloft) Pyridostigm No Notes: Kalia aida ine -24 (Same as: l 00:00: [place]on) Dextrose No 25 gm, 50 Kalia aida 50% Syringe 4-23 mL, Route: l 23:24: IVP, Drug Form: INJ, Dosing Weight 91.818, kg, PRN, PRN Abnormal Lab Result, Start date: 09/21/18 18:24:00 CDT, Duration: 30 day, Stop date: 10/21/18 18:23:00 CDT Regular No Notes: Memoria Insulin, -23 (Same as: l Human 100 23:24: Humulin [...] - 2 MG HCl - 2 MG -23 KESER M.D. TABLET AT ity of Oral Tablet Oral Tablet 00:00: BEDTIME. [place] [facility] Yes See Daniel a l Therapy 09-19 Instructio l 16:48: ns, MISC, Jorge Alberto 00 ONCALL, Evaluate and Treat __3_ times per week for __4__ weeks, # 1 bag, 0 Refill(s) Physical 2018- Yes See Memoria Therapy - Instructio l 16:48: ns, MIS, 00 ONCALL, Evaluate and Treat _3__ times per week for __4__ weeks, # 1 bag, 0 Refill(s) Ramipril No Notes: Memoria 4-21 (Same l 15:56: as:Altace) [place] 00 Furosemide 2018- Yes 20 mg = 1 Me moria 20 MG Oral 4-21 tab, PO, l Tablet 15:44: Every Jorge Alberto 00 Other Day, # 15 tab, 3 Refill(s) amLODIPine Yes 10 mg = 1 Me moria 10 mg oral 4-21 tab, PO, l tablet 15:44: Daily, # Jorge Alberto 00 30 tab, 3 Refill(s) predniSONE Yes 60 mg = 3 Me moria 20 mg oral 4-21 tab, PO, l tablet 15:44: Daily, X Jorge Alberto 00 30 day, # 90 tab, 0 Refill(s) pyridostigm Yes 60 mg = 1 M emoria ine 60 mg 4-21 tab, PO, l oral tablet 15:44: Q8Hnow, # H ermann 00 90 tab, 3 Refill(s) ramipril 5 Yes 10 mg = 2 Me moria mg oral 4-21 cap, PO, l capsule 15:44: Daily, # Berto n 00 60 cap, 3 Refill(s) sennosides, Yes 8.6 mg = 1 Memoria PRISON 8.6 MG 4-21 tab, PO, l Oral Tablet 15:44: BID, X 30 H ermann 00 day, # 60 tab, 3 Refill(s) sertraline Yes 25 mg = 1 Me moria 25 mg oral 4-21 tab, PO, l tablet 15:44: Q24H, # 30 Gerda nn 00 tab, 0 Refill(s) insulin, No Notes: Memoria isophane 4-20 (Same as: l 22:00: Humulin N) Roll in palms of hands [...] CDT, Stop date: 09/18/18 0:54:00 CDT normal 2019-0 No 1,000 mL, Memori a saline 0.9% 4-20 Rate: 75 l IV 1,000 mL 05:54: ml/hr, Herm mercy 00 Infuse over: 13.3 hr, Route: IV, Dosing Weight 91.378 kg, Total Volume: 1,000, Start date: 09/18/18 0:54:00 CDT, Duration: 30 day, Stop date: 10/18/18 0:53:00 CDT, 1.99, m2 ramipril 5 2018- No 10 mg = 2 Me moria mg oral 4-19 cap, PO, l capsule 23:56: Daily, # Berto n 00 30 cap, 1 Refill(s), Pharmacy: [id number] metoprolol 2019-0 No 25 mg = 1 Me moria tartrate 25 4-19 tab, PO, l mg oral 23:56: Q12H, # 60 Herm mercy tablet 00 tab, 1 Refill(s), Pharmacy: [id number] Furosemide 2019-0 No 20 mg = 1 Me moria 20 MG Oral 4-19 tab, PO, l Tablet 23:56: Every [place] 00 Other Day, # 30 tab, 1 Refill(s), Pharmacy: [id number] amLODIPine 2019-0 No 10 mg = 1 Me moria 10 mg oral 4-19 tab, PO, l tablet 23:56: Daily, # [place] 00 30 tab, 1 Refill(s), Pharmacy: [id number] sertraline 2018-0 No 25 mg = 1 Me moria 25 mg oral 4-19 tab, PO, l tablet 23:56: Q24H, # 30 Gerda nn 00 tab, 1 Refill(s), Pharmacy: [facility] #[id number] sennosides, 2019-0 No 8.6 mg = 1 Memoria PRISON 8.6 MG 4-19 tab, PO, l Oral Tablet 23:56: BID, # 60 H ermann 00 tab, 0 Refill(s), Pharmacy: [id number] pyridostigm 2018-0 No 60 mg = 1 M emoria ine 60 mg 4-19 tab, PO, l oral tablet 23:56: Q8Hnow, # H ermann 00 90 tab, 1 Refill(s), Pharmacy: [facility] #[id number] predniSONE 2018-0 No 60 mg = 3 Me moria 20 mg oral 4-19 tab, PO, l tablet 23:56: Daily, # Jorge Alberto 00 30 tab, 1 Refill(s), Pharmacy: [facility] #[id number] Insulin 2018-0 No Notes: Memoria regular - (Same as: l 23:52: Humulin R) [place] 00 Roll in palms of hands gently; Do not shake vigorously . WASTE: F/P - Black; E - [employer] Trash Bin Stable for 31 days at room temperatur e Expires in days from ____Date Glucagon 2018-0 No 1 mg, Memoria 09-17 Route: IM, l 23:52: Drug form: [place] 00 PDR/INJ, PRN, Dosing Weight 91.378, kg, PRN Blood Glucose Results, Start date: 09/17/18 18:52:00 CDT, Duration: 30 day, Stop date: 10/17/18 18:51:00 CDT Dextrose 2018-0 No 25 gm, 50 Kalia aida 50% in 4-19 mL, Route: l Water 23:52: IVP, Drug [place] (bolus) IV 00 Form: INJ, Dosing Weight 91.378, kg, PRN, PRN Blood Glucose Results, Start date: 09/17/18 18:52:00 CDT, Duration: 30 day, Stop date: 10/17/18 18:51:00 CDT Melatonin 2018-0 No 1 mg, Memoria 0.25 mg/mL 09-17 Route: PO, l oral liquid 02:00: Dosing Herm mercy 00 Weight 91.378, kg, Bedtime, Start date: 09/16/18 21:00:00 CDT, Duration: 30 day, Stop date: 10/15/18 21:00:00 CDT insulin, No Notes: Memoria isophane 4-18 (Same as: l 15:30: Humulin N) Jorge Alberto 00 Roll in palms of hands gently; Do not shake vigorously . WASTE: F/P - Black; E - Municipal Trash Bin Stable for 31 days at room temperatur e Expires in days from ____Date Amlodipine No Notes: Memor ia 4-18 (Same as: l 14:00: Norvasc) [place] 00 melatonin 1 No 1 mg, 1 Mem oria mg/mL oral 4-18 mL, Route: l solution 05:53: PO, Drug Gerda nn 00 Form: LIQ, Dosing Weight 91.378, kg, ONCE, STAT, Start date: 09/16/18 0:53:00 CDT, Stop date: 09/16/18 0:53:00 CDT insulin, No Notes: Memoria isophane 4-18 (Same as: l 05:00: Humulin N) Jorge Alberto 00 Roll in palms of hands gently; Do not shake vigorously . WASTE: F/P - Black; E - Municipal Trash Bin Stable for 31 days at room temperatur e Expires in days from ____Date Insulin No Notes: Memoria regular 4-18 (Same as: l 01:34: Humulin R) [place] 00 Roll in palms of hands gently; Do not shake vigorously . WASTE: F/P - Black; E - Municipal Trash Bin Stable for 31 days at room temperatur e Expires in days from ____Date Miralax No Notes: Memoria 4-17 Dissolve l 14:00: in 8 oz of [place] 00 water or juice. (Same as: Miralax) lansoprazol No Notes: Kalia aida e 4-17 Take 1 l 14:00: hour [place] 00 before or 2 hours after meal; Expires in 14 days. Shake well before use. (Same as:Prevaci d) Compound ed Product - formulatio n not commercial ly available* * insulin, No Notes: Memoria isophane 4-17 (Same as: l 05:00: Humulin N) [place] 00 Roll in palms of hands gently; Do not shake vigorously . WASTE: F/P - Black; E - Municipal Trash Bin Stable for 31 days at room temperatur e Expires in days from ____Date Saline No Notes: Memoria Flush 0.9% -17 (Same as: l 02:00: BD [place] 00 Posiflush) Lasix No Notes: Memoria 4-17 (Same as: l 02:00: Lasix) [place] 00 MEDICATION WASTE Product Size: 40 mg Product Wasted: ___ mg docusate No Notes: Memoria sodium 100 4-16 (Same as: l mg oral 22:00: Colace) [place] capsule 00 (Do Not Crush) sennosides, No Notes: Kalia aida PRISON -16 (Same as: l 22:00: Senokot) [place] 00 insulin, No Notes: Memoria isophane 4-16 (Same as: l 21:22: Humulin N) [place] 00 Roll in palms of hands gently; Do not shake vigorously . WASTE: F/P - Black; E - Municipal Trash Bin Stable for 31 days at room temperatur e Expires in days from ____Date Insulin No Notes: Memoria regular 4-16 (Same as: l 21:20: Humulin R) [place] 00 Roll in palms of hands gently; Do not shake vigorously . WASTE: F/P - Black; E - Municipal Trash Bin Stable for 31 days at room temperatur e Expires in days from ____Date Glucagon No 1 mg, Memoria 4-16 Route: IM, l 21:20: Drug form: PDR/INJ, PRN, Dosing Weight 91.378, kg, PRN Blood Glucose Results, Start date: 09/14/18 16:20:00 CDT, Duration: 30 day, Stop date: 10/14/18 16:19:00 CDT Dextrose 2018- No 12.5 gm, Memor ia 50% Syringe 4-16 25 mL, l 21:20: Route: IVP, Drug Form: INJ, Dosing Weight 91.378, kg, PRN, PRN Blood Glucose Results, Start date: 09/14/18 16:20:00 CDT, Duration: 30 day, Stop date: 10/14/18 16:19:00 CDT Saline 2018- No Notes: Memoria Flush 0.9% 4-16 (Same as: l 16:01: BD Posiflush) Nystatin No Notes: Memoria 100 UNT/MG 4-16 (Same l Topical 16:01: as:Mycosta Herm mercy Powder 00 tin, Nilstat) For external use only. Amlodipine No Notes: Memor ia 4-16 (Same as: l 14:00: Norvasc) Lasix No Notes: Memoria 4-16 (Same as: l 13:45: Lasix) MEDICATION WASTE Product Size: 40 mg Product Wasted: ___ mg Albuterol No Notes: Memori a 0.833 MG/ML 4-16 (Same as: l / 12:48: Duoneb) Ipratropium 00 [place] 0.167 MG/ML Inhalant Solution [DuoNeb] Potassium No [...] tartrate 4-16 (Same as: l 02:00: Lopressor) Jorge Alberto Gamunex-C No Notes: Memori a 25 gm + 4-15 WASTE: F/P l empty 20:00: - Red; E [place] container 1 00 -Red Lot bag # [...] e 4-15 IV push l 14:00: reconstitu Jorge Alberto 00 te with 10 ml 0.9% sodium chloride and push over 2 minutes. (Same as: Protonix) chlorhexidi No Notes: Kalia aida ne 4-15 (Same As: l gluconate 14:00: Peridex) Herm mercy 1.2 MG/ML Mouthwash Norepinephr No Notes: Not Memoria ine 4-15 for direct l 11:04: administra Jorge Alberto 00 tion - DILUTE. [...] being intubated (unless the nurse is a AIRCRAFT [employer] FRAMER). Same as: Diprivan Rocuronium No Notes: Memor ia 4-15 (Same as: l 11:01: Zemeron) [place] Fentanyl No Notes: Memoria 4-15 (Same as: l 11:01: Sublimaze) [place] 00 Preservat kimberly free. Propofol No Notes: If Kalia aida 4-15 Diprivan - l 11:01: change [place] 00 bottle & tubing every 12 hr Per state nursing law propofol can only be given by a nurse if patient is intubated or being intubated (unless the nurse is a AIRCRAFT [employer]LAGE FRAMER). Same as: Diprivan ocular No Notes: Memoria lubricant 4-15 (Same as: l 11:00: Lacri-Lube [place] 00 , Puralube, Duratears Naturale, Artificial Tears, [...] m2 chlorhexidi No Notes: Kalia aida ne -15 (Same As: l gluconate 07:43: Peridex) Herm mercy 1.2 MG/ML 00 Mouthwash Insulin No Notes: Memoria regular 100 4-15 Final l unit + 06:52: Concentrat Gerda nn 00 ion 1unit/1ml WASTE: F/P - Black; E - Municipal Trash Bin Dextrose No 6.25 gm, Memor ia 50% Syringe -15 12.5 mL, l 06:52: Route: Jorge Alberto 00 IVP, Drug Form: INJ, Dosing Weight 91.378, kg, PRN, PRN Abnormal Lab Result, Start date: 09/13/18 1:52:00 CDT, Duration: 30 day, Stop date: 10/13/18 1:51:00 CDT Adult No Notes: Memoria Parenteral 4-15 Must use l Nutrition 03:00: 1.2 micron He rmann Custom - 00 filter AND Peripheral Lipids (PPN not should [...] F/P l empty 02:00: - Red; E [facility] container 1 00 -Red Lot bag # Mf g: __ (Gamunex - C) Non-Formul jordi "blood product derivative " Pyridostigm No Notes: Kalia aida ine 4-15 (Same as: l 00:09: Mestinon) Jorge Alberto 00 Calcium No Notes: Memoria Carbonate 4-14 (Same As: l 500 MG 21:44: Tums) Jorge Alberto Chewable 00 Calcium Tablet Carbonate 500 mg = 200 mg elemental calcium Dose = mg calcium carbonate ( mg elemental calcium) Calcium No Notes: Memoria Gluconate 4-14 WASTE: F/P l 21:44: - Sink; E [place] - Municipal Trash Bin Magnesium No Notes: Memori a Oxide 4-14 (Same as: l 21:44: Mag-Ox [place] 00 400) Magnesium oxide [id number] g elemental magnesium Dose=____m g magnesium oxide (___mg elemental magnesium) Magnesium No Notes: Memori a Sulfate - WASTE: F/P l 21:44: - Sink; E [place] 00 - Municipal Trash Bin potassium No Notes: Memori a phosphate-s -14 (Same as: l odium 21:44: K-Phos Jorge Alberto phosphate 00 Neutral, 250 mg-280 Phospha mg-160 mg 250 oral powder Neutral) for reconstitut ion Potassium No Notes: Memori a Chloride -14 (Same as: l 21:44: K-Dur 20) "Do Not Crush" Give with food and full glass of water For patients unable to swallow tablet, dissolve in one half glass of water. Allow about 2 minutes for the tablets to disintegra te. Stir before giving to prepare slurry and administer . Please exclude Patient s with feeding tube less than 14 Cam[place]onian (Dobhoff, J-tube etc) and pediatric and patients. sodium No Notes: Memoria phosphate -14 Infuse l 21:44: over 4 [place] 00 hour. Do not infuse phosphorou s concurrent ly in the same line as TPN or IVF that contains calcium. For double lumen central lines, phosphorou s may be infused in a separate lumen from TPN. potassium No Notes: Memori a phosphate -14 (Same as: l 21:44: K Phosphate. ) Do not infuse phosphorou s concurrent ly in the same line as TPN or IVF that contains calcium. For double lumen central lines, phosphorou s may be infused in a separate lumen from TPN. 1 mMol phoshate has 1.47 mEq potassium Infuse over 4 hours benzocaine No Notes: Memor ia topical gel -14 (Same As: l 21:38: Maximum [place] 00 Strength PM Orajel ) Immunoglobu No 75 gm, Kalia aida lawanda G -14 Route: IV, l 17:00: Drug form: INJ, Q24H, Dosing Weight 91.378, kg, Start date: 09/12/18 12:00:00 CDT, Duration: 1 doses or times, Stop date: 09/12/18 12:00:00 CDT, Indication : Myasthenia gravis Magnesium No Notes: Memori a Sulfate -14 WASTE: F/P l 14:00: - Sink; E - Municipal Trash Bin Calcium No Notes: Memoria Gluconate 4-14 WASTE: F/P l 12:20: - Sink; E [...] (Same as l MG / 14:00: Senokot-S) Jorge Alberto sennosides, 00 Equiv. to PRISON 8.6 MG Cassidy-Colac Oral Tablet e. Furosemide [...] sodium, 4-13 porcine l porcine 02:00: heparin Jorge Alberto 2500 UNT/ML 00 Injectable Solution Lacri-Lube No Notes: Memor ia 4-12 (Same as: l 22:00: Lacri-Lube , Puralube, Duratears Naturale, Artificial Tears, and Tears Again ) Pyridostigm No Notes: Kalia aida ine 4-12 (Same as: l 22:00: Mestinon) Saline No Notes: Memoria Flush 0.9% 4-12 (Same as: l 21:47: BD Jorge Alberto 00 Posiflush) Benadryl No Notes: Memoria 4-12 (Same as: l 21:47: Benadryl) Solu-Medrol No Notes: Kalia aida 4-12 (Same l 21:47: as:Solu-ME [place] 00 DROL, A-Methapre d) Zofran No Notes: Memoria 4-12 (Same as: l 21:44: Zofran) MEDICATION WASTE Product Size: 4 mg Product Wasted: ___ mg Immunoglobu 2018-0 No 36 gm, Kalia aida webber G 4-12 Route: l 21:42: IVPB, Drug form: SOLN, Daily, Dosing Weight 91.378, kg, Start date: 09/10/18 16:42:00 CDT, Duration: 5 day, Stop date: 09/15/18 9:00:00 CDT, Indication : Other see comments Insulin 2018-0 No 60 Memoria regular 4-12 units) l 13:17: WASTE: F/P [place] 00 - Black; E - Municipal Trash Bin Stable for 28 days at room temperatur e Expires in days from ____Date Glucagon 2018-0 No 1 mg, Memoria 4-12 Route: IM, l 13:17: Drug form: PDR/INJ, PRN, Dosing Weight 91.378, kg, PRN Blood Glucose Results, Start date: 09/10/18 8:17:00 CDT, Duration: 30 day, Stop date: 10/10/18 8:16:00 CDT Dextrose 2018-0 No 12.5 gm, Memor ia 50% Syringe -12 25 mL, l 13:17: Route: IVP, Drug Form: INJ, Dosing Weight 91.378, kg, PRN, PRN Blood Glucose Results, Start date: 09/10/18 8:17:00 CDT, Duration: 30 day, Stop date: 10/10/18 8:16:00 CDT Saline 2018-0 No Notes: Memoria Flush 0.9% 4-12 (Same as: l 05:20: BD Posiflush) Dextrose 5% 2019- No 1,000 mL, Natasha de la fuente with 0.9% 4-12 Rate: 75 l NaCl IV 05:20: ml/hr, [place] 1,000 mL 00 Infuse over: 13.3 hr, Route: IV, Dosing Weight 91.378 kg, Total Volume: 1,000, Start date: 09/10/18 0:20:00 CDT, Duration: 30 day, Stop date: 10/10/18 0:19:00 CDT, 1.99, m2 Streptococc No Notes: Kalia aida us 4-12 Shake well l pneumoniae 05:11: prior to Her restrepo serotype 1 25 use (Same capsular as: antigen Prevnar diphtheria 13) [id number] protein conjugate vaccine / Streptococc us pneumoniae serotype 14 capsular antigen diphtheria [id number] protein conjugate vaccine / Streptococc us pneumoniae serotype 18C capsular antigen d insulin No Notes: Memoria glargine 4-12 (Same as: l 03:00: Lantus) Do [place] 00 not hold insulin without contacting prescriber WASTE: F/P - Black; E - Municipal Trash Bin "single patient use only" Insulin Yes 10 unit, Memori a Glargine 4-11 SUB-Q, l 100 UNT/ML 23:55: Bedtime, 0 H ermann Injectable 00 Refill(s) Solution Bacitracin No 1 appl, Kalia aida 0.5 UNT/MG 09-09 Route: l Ophthalmic 14:00: RIGHT EYE, H ermann Ointment 00 TID, Drug form: OINT, Start date: 09/09/18 9:00:00 CDT, Duration: 30 day, Stop date: 10/08/18 17:00:00 CDT D5W 1/2NS No 1,000 mL, Mem oria 1,000 mL 09-09 Rate: 75 l 12:53: ml/hr, Infuse over: 13.3 hr, Route: IV, Dosing Weight 94.3 kg, Total Volume: 1,000, Start date: 09/09/18 7:53:00 CDT, Duration: 30 day, Stop date: 10/09/18 7:52:00 CDT, 2.02, m2 Acyclovir No Notes: Me moria 4-11 MEDICATION l 01:00: WASTE Jorge Alberto Product Size: 500 mg Product Wasted: _0__ mg 0.5 ML 2019- Yes SUB-Q, Memoria dulaglutide 4-10 every l 3 MG/ML 23:50: Khang, 0 Gerda nn Prefilled 00 Refill(s) Syringe [Trulicity] Insulin Yes 20 unit, Memori a Glargine 4-10 SUB-Q, l 100 UNT/ML 23:50: Bedtime, # H ermann Injectable 00 3 mL, 3 Solution Refill(s) heparin 2018-0 No Notes: Memoria 4-10 porcine l 21:00: heparin Jorge Alberto 00 Dextrose 2019-0 No 12.5 gm, Memor ia 50% Syringe 4-10 25 mL, l 14:49: Route: Jorge Alberto 00 IVP, Drug Form: INJ, Dosing Weight 94.3, kg, PRN, PRN Blood Glucose Results, Start date: 09/08/18 9:49:00 CDT, Duration: 30 day, Stop date: 10/08/18 9:48:00 CDT Glucagon 2018- No 1 mg, Memoria 4-10 Route: IM, l 14:49: Drug form: Jorge Alberto 00 PDR/INJ, PRN, Dosing Weight 94.3, kg, PRN Blood Glucose Results, Start date: 09/08/18 9:49:00 CDT, Duration: 30 day, Stop date: 10/08/18 9:48:00 CDT Furosemide No Notes: Memor ia 20 MG Oral 3-22 (Same as: l Tablet 14:00: Lasix) May cause GI upset. Give with food or milk. Furosemide 2018- No 40 mg, Memor ia 20 MG Oral 3-22 Route: PO, l Tablet 02:00: Drug form: Gerda nn 00 TAB, Daily, Dosing Weight 111.6, kg, Start date: 08/19/18 21:00:00 CDT, Duration: 30 day, Stop date: 09/18/18 9:00:00 CDT clopidogrel 2019-0 Yes 75 mg = 1 M emoria 75 mg oral 3-22 tab, PO, l tablet 00:09: Daily, # [place] 00 90 tab, 3 Refill(s), Pharmacy: [facility] [id number] rosuvastati 2018- Yes 20 mg = 2 M emoria n 10 mg 3-22 tab, PO, l oral tablet 00:09: Bedtime, # [place] 00 180 tab, 3 Refill(s) ramipril 5 2018-0 Yes 10 mg = 2 Me moria mg oral 3-22 cap, PO, l capsule 00:09: Q24H, # [place] 00 180 cap, 3 Refill(s) Insulin Yes 20 unit, Memori a Glargine 3-22 SUB-Q, l 100 UNT/ML 00:09: QPM, # 15 He rmann Injectable 00 mL, 3 Solution Refill(s) Furosemide Yes 20 mg = 1 Me moria 20 MG Oral 3-22 tab, PO, l Tablet 00:09: Every [place] 00 Other Day, # 15 tab, 0 Refill(s) amLODIPine Yes 5 mg = 1 Mem oria 5 mg oral 3-22 tab, PO, l tablet 00:09: Daily, # [place] 00 90 tab, 3 Refill(s) metoprolol Yes 25 mg = 1 Me moria tartrate 25 3-22 tab, PO, l mg oral 00:09: BID, # 60 Gerda nn tablet 00 tab, 0 Refill(s) Furosemide No Notes: Memor ia 20 MG Oral -21 (Same as: l Tablet 15:14: Lasix) May [...] CDT, Stop date: 08/19/18 8:49:00 CDT Omnipaque No 150 ml, Memor ia 350 3- Route: l 13:49: INTRAARTER IAL, Dosing Weight 111.6, kg, ONCE, Start date: 08/19/18 8:49:00 CDT, Stop date: 08/19/18 8:49:00 CDT heparin No 3,000 Memoria 3-21 unit, l 13:49: Route: IV, 00 ONCE, Dosing Weight 111.6, kg, Start date: 08/19/18 8:49:00 CDT, Stop date: 08/19/18 8:49:00 CDT Midazolam No 1 mg, Memoria 3-21 Route: IV, l 13:49: ONCE, Dosing Weight 111.6, kg, Start date: 08/19/18 8:49:00 CDT, Stop date: 08/19/18 8:49:00 CDT iodixanol No 100 mL, Memor ia 3-20 Route: [...] 3-20 Route: PO, l 02:00: Drug form: TAB, Bedtime, Dosing Weight 111.6, [...] 20:30: as:Altace) Amlodipine No Notes: Memor ia 08-17 (Same as: l 20:30: Norvasc) loperamide No Notes: Memor ia 08-17 Same as l 19:48: Imodium Imodium A-D No 2 mg, Memor ia EZ Chews 08-17 Route: l 18:34: CHEW, Dosing Weight 111.6, kg, BID, PRN as needed for loose stool, Start date: 08/17/18 13:34:00 CDT, Duration: 30 day, Stop date: 09/16/18 13:33:00 CDT Plavix No Notes: Memoria -19 (Same As: l 17:24: Plavix) benzonatate No Notes: Kalia aida 08-17 (Same As: l 17:18: Tessalon Perles) "Do Not Crush" Insulin No 60 Memoria regular 3-19 units) l 14:05: WASTE: F/P [place] 00 - Black; E - Municipal Trash Bin Stable for 28 days at room temperatur e Expires in days from ____Date 3 ML No 40 unit, Memoria Insulin 3-19 SUB-Q, l Glargine 08:49: Bedtime, # Her restrepo 100 UNT/ML 00 3 mL, 3 Prefilled Refill(s) Syringe [Lantus] Insulin No 60 Memoria regular 3-19 units) l 08:18: WASTE: F/P [place] 00 - Black; E - Municipal Trash Bin Stable for 28 days at room temperatur e Expires in days from ____Date Dextrose No 12.5 gm, Memor ia 50% in 08-17 25 mL, l Water 07:18: Route: Jorge Alberto (bolus) IV 00 IVP, Drug Form: INJ, Dosing Weight 113.636, kg, PRN, PRN Blood Glucose Results, Start date: 08/17/18 2:18:00 CDT, Duration: 30 day, Stop date: 09/16/18 2:17:00 CDT Glucagon 2019-0 No 1 mg, Memoria 08-17 Route: IM, l 07:18: Drug form: Jorge Alberto 00 PDR/INJ, PRN, Dosing Weight 113.636, kg, PRN Blood Glucose Results, Start date: 08/17/18 2:18:00 CDT, Duration: 30 day, Stop date: 09/16/18 2:17:00 CDT Bisacodyl 2019-0 No Notes: Memori a 08-17 (Same As: l 06:06: Dulcolax, Jorge Alberto Bisco-Lax) Labetalol 2018-0 No 20 mg, 4 Kalia aida 3-19 mL, Route: l 04:38: IVP, Drug form: INJ, Q10Min, Dosing Weight 113.636, kg, PRN Hypertensi on, Start date: 08/16/18 23:38:00 CDT, Duration: 30 day, Stop date: 09/15/18 23:37:00 CDT iodixanol 2019-0 No 60 mL, Memori a 08-17 Route: l 01:39: IVP, Drug [place] 00 Form: SOLN, Dosing Weight 113.636, kg, ONCALL, STAT, Start date: 08/16/18 20:39:00 CDT, Duration: 1 doses or times, Dose = 2.2ml/kg, Max dose = 100ml -- "To be infused by Radiology Staff ONLY" metoprolol 2010-06 Yes Allen 25 mg, 1 [...] mL, Route: l 23:14: Hernán IV, Drug [place] form: INJ, Q4H, PRN Elevated BP, Start date: 03/24/11 18:14:00, Duration: 30 day, Stop date: 04/23/11 18:13:00, Systolic Blood pressure greater than 160 mmHg magnesium 2010-06 No Allen 2 gm, 50 Mem oria sulfate 0-24 Angelito mL, Route: l 22:59: Hernán IVPB, Drug Gerda nn form: INJ, ONCE, Total dose = 2 gm, Start date: 03/24/11 17:59:00, Duration: 1 doses or times, Stop date: 03/24/11 17:59:00 NS 1,000 mL 2010-06 No Allen 1,000 mL, Memoria 0-24 Angelito Rate: 100 l 22:56: Hernán ml/hr, [place] 00 Infuse over: 10 hr, Route: IV, Total Volume: 1,000, Start date: 03/24/11 17:56:00, Duration: 30 day, Stop date: 04/23/11 17:55:00 Novolin N 2010-06 No Allen 10 unit, Mem oria 0-24 Angelito 0.1 mL, l 14:00: Hernán Route: Jorge Alberto 00 SUB-Q, Drug form: INJ, BID, Start date: 03/24/11 9:00:00, Duration: 30 day, Stop date: 04/22/11 17:00:00 [place] 2010-06 No Allen 120 mg, 2 Memor [...] tablet 14:00: Hernán Route: PO, Her restrepo 00 Drug Form: TAB, Daily, Start date: 03/23/11 9:00:00, Duration: 30 day, Stop date: 04/21/11 9:00:00 diphenhydrA 2010-06 No Allen 25 mg, 1 M emoria MINE 0-23 Angelito cap, l 12:37: Hernán Route: PO, Gerda nn 00 Drug form: CAP, Q6H, PRN Itching, Start date: 03/23/11 7:37:00, Duration: 30 day, Stop date: 04/22/11 7:36:00 [place] 2010-06 No Allen 120 mg, Memoria Thyroid 0-23 Angelito 0.5 tab, l 12:30: Hernán Route: PO, Gerda nn 00 Drug form: TAB, Before Breakfast, Start [...] Duration: 30 day, Stop date: 04/21/11 9:00:00 Dale 5/325 2010-06 No Allen 1 tab, Mem [...] ea, Route: l 22:00: Hernán PO, Drug Jorge Alberto 00 form: TAB, BID, Start date: 03/22/11 [...] Angelito Rate: 50 l 21:57: Hernán ml/hr, [place] 00 Infuse over: 20 hr, Route: IV, Total Volume: 1,000, Start date: 03/22/11 16:57:00, Duration: 30 day, Stop date: 04/21/11 16:56:00 insulin 2010-06 No Allen 3 unit, Memori a aspart 0-22 Angelito 0.03 mL, l 21:28: Hernán Route: [place] 00 SUB-Q, Drug form: SOLN, TID-Before Meals, [...] Memoria 0-22 Angelito Route: IM, l 21:28: Hernán Drug form: Gerda nn 00 PDR/INJ, PRN, [...] Dumont mL, Route: l 15:12: IVP, Drug Jorge Alberto form: INJ, ONCE, Priority: STAT, Start date: 03/22/11 10:12:00, Stop date: 03/22/11 10:12:00 morphine 2010-06 No Martha 4 mg, 1 Me moria Sulfate 0-22 Dumont mL, Route: l 15:11: IVP, Drug Jorge Alberto 00 form: INJ, ONCE, Priority: STAT, Start [...] oral 0-15 Prince tab, l tablet 02:00: Route: PO, Drug form: TAB, Bedtime, Start date: 03/14/11 21:00:00, Duration: 30 day, Stop date: 04/12/11 21:00:00 NS 1,000 mL 2010-06 No Mujahed M 1,000 mL, Memoria 0-14 Alikhan Rate: 75 l 22:02: ml/hr, Infuse over: 13.3 hr, Route: IV, Total Volume: 1,000, Start date: 03/14/11 17:02:00, Duration: 30 day, Stop date: 04/13/11 17:01:00 senna 8.6 2010-06 No Blanco 8.6 mg, 1 Me moria mg oral 0-14 Prince tab, l tablet 14:00: Korimil Route: PO, Drug Form: TAB, Daily, Start date: 03/14/11 9:00:00, Duration: 30 day, Stop date: 04/12/11 9:00:00 metoprolol 2010-06 No Darcy 12.5 mg, 1 Memoria 0-14 Jeane ea, Route: l 14:00: Ash PO, Drug Gerda nn 00 form: TAB, BID, Start date: 03/14/11 9:00:00, Duration: 30 day, Stop date: 04/12/11 17:00:00 Crestor 2010-06 No Darcy 20 mg, 2 Memoria 0-14 Jeane tab, l 14:00: [place] Route: PO, Her restrepo 00 Drug form: TAB, Daily, Start date: 03/14/11 9:00:00, Duration: 30 day, Stop date: 04/12/11 9:00:00 Keppra 500 2010-06 No Darcy 500 mg, 1 Memoria mg oral 0-14 Jeane tab, l tablet 14:00: [place] Route: PO, H ermann 00 Drug form: TAB, Q12H, Start date: 03/14/11 9:00:00, Duration: 30 day, Stop date: 04/12/11 21:00:00 Novolin N 2010-06 No Darcy 10 unit, Memoria 0-14 Jeane 0.1 mL, l 14:00: Ash Route: Jorge Alberto 00 SUB-Q, Drug form: INJ, BID, Start date: 03/14/11 9:00:00, Duration: 30 day, Stop date: 04/12/11 17:00:00 docusate 2010-06 No Darcy 100 mg, 1 Memoria sodium 100 0-14 Jeane cap, l mg oral 14:00: [place] Route: PO, [place] capsule 00 Drug form: CAP, BID, Start [...] oria 0-14 Jeane unit, 1 l 13:00: [place] mL, Route: Her restrepo 00 SUB-Q, Drug form: INJ, Q8H, Start date: 03/14/11 8:00:00, Duration: 30 day, Stop date: 04/13/11 0:00:00 ciprofloxac 2010-06 No Darcy 750 mg, 3 Memoria in 0-14 Jeane tab, l 12:00: [place] Route: PO, Her restrepo 00 Drug form: TAB, [id number], Start date: 03/14/11 7:00:00, Duration: 30 day, Stop date: 04/12/11 19:00:00 cefepime 2010-06 No Darcy 2 gm, Me moria 0-14 Jeane Route: IV, l 12:00: [place] Drug form: Her restrepo 00 INJ, [id number], Start date: 03/14/11 7:00:00, Duration: 30 day, Stop date: 04/12/11 23:00:00 [place] 2010-06 No Darcy 120 mg, 2 Memoria Thyroid 0-14 Jeane tab, l 11:45: Ash Route: PO, Her restrepo 00 Drug form: TAB, [id number], Start date: 03/14/11 6:45:00, Duration: 30 day, Stop date: 04/13/11 6:30:00 glucagon 2010-06 No Darcy 1 mg, Me moria 0-14 Jeane Route: IM, l 11:06: [place] Drug form: Her restrepo 00 PDR/INJ, PRN, PRN Blood Glucose Results, Priority: STAT, Start date: 03/14/11 6:06:00, Duration: 30 day, Stop date: 04/13/11 5:05:00 Dextrose 2010-06 No Darcy 25 gm, 50 Memoria 50% Syringe 0-14 Jeane mL, Route: l 11:06: Ash IVP, Drug Herm mercy 00 Form: INJ, [...] Duration: 30 day, Stop date: 04/13/11 6:05:00 Dale 5/325 2010-06 No Darcy 1 tab, Memoria oral tablet 0-14 Jeane Route: PO, l 11:02: Ash Drug Form: Her restrepo 00 TAB, Q4H, PRN as needed for pain, Start date: 03/14/11 6:02:00, Duration: 30 day, Stop date: 04/13/11 6:01:00 magnesium 2010-06 No Darcy 2 gm, 50 Memoria sulfate 0-14 Jeane mL, Route: l 11:01: [place] IVPB, Drug Her restrepo 00 form: INJ, ONCE, Total dose = 2 gm, Start date: 03/14/11 6:01:00, Duration: 1 doses or times, Stop date: 03/14/11 6:01:00 Sodium 2010-06 No Natana 1,000 mL, Kalia aida Chloride 0-14 Farmer Rate: l 0.9% 09:12: Burden 1,000 [place] (Bolus) IV 00 ml/hr, 1,000 mL Infuse [...] Farmer Rate: l 0.9% 04:20: Burden 1,000 [place] (Bolus) IV 00 ml/hr, 1,000 mL Infuse [...] ea, Route: l 01:00: Aaron PO, Drug [place] 00 form: TAB, BID, Start date: 03/06/11 20:00:00, Duration: 30 day, Stop date: 04/05/11 8:00:00 metoprolol 2010-06 Yes McCasey R 12.5 mg, Memoria 25 mg oral 0-06 Rizvi 0.5 ea, l tablet 20:26: PO, BID, [place] 19 60 tab, Substituti on Allowed, TAB trazodone 2010-06 Yes McCasey R 50 mg, 1 Memoria 50 mg oral 0-06 Rizvi tab, PO, l tablet 20:24: Bedtime, Jorge Alberto 01 40 tab, Substituti on Allowed, TAB Dale 5/325 2010-06 Yes McCasey R 1 tab, PO, Memoria oral tablet 0-06 Rizvi Q4H, PRN, l 20:23: 40 tab, [place] 43 Pain, Substituti on Allowed, Maintenanc e, TAB Novolin N 2010-06 Yes McCasey R 10 unit, Memoria 100 0-06 Rizvi SUB-Q, l units/mL 20:23: BID, 10 Berto n subcutaneou 30 ml, s injection Substituti on Allowed, SUSP [place] 2010-06 Yes McCasey R 120 mg, 2 M emoria Thyroid 60 0-06 Rizvi tab, PO, l mg oral 20:23: Before Jorge Alberto tablet 07 Breakfast, 60 tab, Substituti on Allowed, TAB Keppra 500 2010-06 Yes McCasey R 500 mg, 1 Memoria mg oral 0-06 Rizvi tab, PO, l tablet 20:22: Q12H, 60 [place] 39 tab, Substituti on Allowed, TAB Crestor [...] PO, l mg oral 20:21: BID, 30 [place] capsule 19 cap, Substituti on Allowed, CAP [...] No Val 10 mg, 0.5 Kalia aida 006 Caitie tab, l 13:00: Aaron Route: PO, Gerda nn Drug form: TAB, Daily, Start date: 03/06/11 8:00:00, Duration: 30 day, Stop date: 04/04/11 8:00:00 Norvasc 2010- No Chaitanya A 5 mg, Memor ia 0 Crowe Route: PO, l 13:00: Daily, Jorge Alberto Start date: 03/02/11 8:00:00, Duration: 30 day, Stop date: 03/31/11 8:00:00 trazodone 2010- No Bonnie Jyotsna 50 mg, 1 Memoria 50 mg oral 02-28 Zeider tab, l tablet 02:00: Route: PO, Gerda Drug form: TAB, Bedtime, Start date: 02/27/11 21:00:00, Duration: 30 day, Stop date: 03/28/11 21:00:00 calcium 2010- No Bonnie Jyotsna 500 mg, 1 Memoria carbonate 02-27 Zeider tab, l 13:00: Route: PO, Drug form: TAB, TID, Start date: 02/27/11 8:00:00, Duration: 7 day, Stop date: 03/05/11 17:00:00 senna No Bonnie Jyotsna 8.6 mg, 1 M emoria 02-27 Zeider tab, l 13:00: Route: PO, Drug Form: TAB, Daily, Start date: 02/27/11 8:00:00, Duration: 30 day, Stop date: 03/28/11 8:00:00 Lasix 40 mg No McCasey R 20 mg, 0.5 Memoria oral tablet 02-27 Rizvi tab, l 13:00: Route: PO, Jorge Alberto 00 Drug form: TAB, Daily, Start date: 02/27/11 8:00:00, Stop date: 03/28/11 8:00:00 [place] No Bonnie Jyotsna 120 mg, 2 Memoria Thyroid 02-27 Zeider tab, l 11:30: Route: PO, [place] 00 Drug form: TAB, Before Breakfast, Start date: 02/27/11 6:30:00, Duration: 30 day, Stop date: 03/28/11 6:30:00 Insulin 2010- No Chaitanya A 5 unit, Mem oria regular 02-27 Crowe 0.05 mL, l 11:30: Route: [place] 00 SUB-Q, Drug form: SOLN, TID-Before Meals, [...] l tablet 05:00: Route: PO, Gerda nn 00 Drug form: TAB, Q8H, Start date: 02/27/11 0:00:00, Duration: 30 day, Stop date: 03/28/11 16:00:00 ciprofloxac No Bonnie Jyotsna 750 mg, 3 Memoria in 02-27 Zeider tab, l 04:00: Route: PO, Jorge Alberto 00 Drug form: TAB, Q12H, Priority: Routine, Start date: 02/26/11 23:00:00, Duration: 30 day, Stop date: 03/28/11 11:00:00 Crestor No Bonnie Jyotsna 20 mg, 2 Memoria 02-27 Zeider tab, l 02:00: Route: PO, [place] 00 Drug form: TAB, Daily, Start date: 02/26/11 21:00:00, Duration: 30 day, Stop date: 03/27/11 21:00:00 levetiracet 0 No Bonnie Jyotsna 500 mg, 1 Memoria am 02-27 Zeider tab, l 02:00: Route: PO, [place] Drug form: TAB, Q12H, Start date: 02/26/11 21:00:00, Duration: 30 day, Stop date: 03/28/11 9:00:00 magnesium 2010- No Bonnie Jyotsna 400 mg, 1 Memoria oxide 02-27 Zeider tab, l 01:00: Route: PO, [place] 00 Drug form: TAB, BID, Start date: 02/26/11 20:00:00, Duration: 5 day, Stop date: 03/03/11 8:00:00 insulin No Bonnie Jyotsna 10 unit, Memoria isophane-FILM COATER 02-27 Zeider 0.1 mL, l H 01:00: [...] 02-27 Crowe tab, l 01:00: Route: PO, Jorge Alberto [...] Zeider mL, Route: l 22:39: IVP, Drug [place] 00 form: INJ, ONCE, PRN Nausea & Vomiting, Start date: 02/26/11 17:39:00 Saline No Bonnie Jyotsna 5 ml, Kalia aida Flush 0.9% 02-26 Zeider Route: l 22:39: IVP, Drug [place] Form: INJ, PRN, PRN Line Flush, Start date: 02/26/11 17:39:00, Duration: 30 day, Stop date: 03/28/11 17:38:00 calcium No Bonnie Jyotsna 500 mg, 1 Memoria carbonate 02-26 Zeider tab, l 22:39: Route: Jorge Alberto 00 CHEW, Drug form: CHEWTAB, TID, PRN Indigestio n, Start date: 02/26/11 17:39:00, Duration: 30 day, Stop date: 03/28/11 17:38:00 Dale 5/325 No Bonnie Jyotsna 1 tab, Memoria oral tablet 02-26 Zeider Route: PO, l 22:39: Drug Form: [place] 00 TAB, Q4H, PRN Pain, Start date: 02/26/11 17:39:00, Duration: 30 day, Stop date: 03/28/11 17:38:00 acetaminoph No Bonnie Jyotsna 650 mg, Memoria en 02-26 Zeider 20.3 mL, l 22:39: Route: PO, Jorge Alberto 00 Drug form: LIQ, Q4H, PRN Fever, Start date: 02/26/11 17:39:00, Duration: 30 day, Stop date: 03/28/11 17:38:00 Dale No Bonnie Jyotsna 1 tab, Kalia aida 7.5/325 02-26 Zeider Route: PO, l oral tablet 22:39: Drug Form: Jorge Alberto 00 TAB, Q4H, PRN Pain, Start date: 02/26/11 17:39:00, Duration: 30 day, Stop date: 03/28/11 17:38:00 Insulin No Bonnie Jyotsna 2 unit, M emoria regular 02-26 Zeider 0.02 mL, l 22:39: Route: Jorge Alberto 00 SUB-Q, Drug form: SOLN, TID-Before Meals, PRN Blood Glucose Results, Start date: 02/26/11 17:39:00, Duration: 30 day, Stop date: 03/28/11 17:38:00 [place] Yes Katie L 120 mg, 2 M emoria Thyroid 60 02-26 Christianson tab, PO, l mg oral 18:40: Before Jorge Alberto tablet 33 Breakfast, 30 tab, Substituti on [...] tab, PO, l tablet 18:40: BID, 30 Jorge Alberto 14 tab, Substituti on Allowed, TAB levetiracet Yes Katie L 500 mg, 1 Memoria am 500 mg 02-26 Christianson tab, PO, l oral tablet 18:40: Q12H, 30 He rmann 10 tab, Substituti on Allowed, TAB hydrALAZINE Yes Katie L 25 mg, 1 Memoria 25 mg oral 02-26 Christianson tab, PO, l tablet 18:40: Q8H, 30 [place] 03 tab, Substituti on Allowed, TAB heparin Yes Katie L 5000 Memor ia 5000 02-26 Christianson units, l units/mL 18:39: SUB-Q, Jorge Alberto injectable 57 Q8H, 30 solution doses or times, Substituti on Allowed, SOLN Lasix 40 mg Yes Katie L 40 mg, 1 Memoria oral tablet 02-26 Christianson tab, PO, l 18:39: Daily, 30 [place] 49 tab, Substituti on Allowed, TAB docusate Yes Katie L 100 mg, 1 Memoria sodium 100 02-26 Christianson cap, PO, l mg oral 18:39: BID, 30 [place] capsule 39 cap, Substituti on Allowed, CAP [...] oral 18:39: TID, 30 Her restrepo tablet, tab, chewable Substituti on Allowed, CHEWTAB Fleet Enema No Skyler 133 ml, Memoria 02-24 Dean Route: IN, l 19:38: Joel Drug Form: Herm mercy 00 JEANNIE, ONCE, Start date: 02/24/11 14:38:00, Stop date: 02/24/11 14:38:00 bisacodyl No Skyler 10 mg, 1 M emoria 02-24 Dean supp, l 19:38: Joel Route: IN, Nikolas mercy 00 Drug form: SUPP, ONCE, Start date: 02/24/11 14:38:00, Stop date: 02/24/11 14:38:00 magnesium No Magnolia 300 ml, Mem oria citrate 02-24 Manuel Route: PO, l 18:03: Aicha Drug Form: Herm mercy 00 LIQ, ONCE, Start date: 02/24/11 13:03:00, Stop date: 02/24/11 13:03:00 calcium No Val 500 mg, 1 Mem oria carbonate 02-24e tab, l 18:00: Aaron Route: PO Gerda nn Drug form: TAB, TID, Start date: 02/24/11 13:00:00, Duration: 7 day, Stop date: 03/03/11 9:00:00 lisinopril No Val 10 mg, 1 M emoria 02-24 Caitie tab, l 16:02: Aaron Route: PO, Gerda nn 00 Drug form: TAB, ONCE, Priority: NOW, Start date: 02/24/11 11:02:00, Stop date: 02/24/11 11:02:00 lisinopril No Val 10 mg, Mem oria 9-26 Caitie Route: PO, l 16:01: Aaron ONCE, [place] Start date: 02/24/11 11:01:00, Stop date: 02/24/11 11:01:00 Insulin No Val 3 unit, Memor ia regular 02-23 0.03 mL, l 21:30: Aaron Route: Jorge Alberto SUB-Q, Drug form: SOLN, TID-Before Meals, Start date: 02/23/11 16:30:00, Duration: 30 day, Stop date: 03/25/11 11:30:00 ciprofloxac No Val 750 mg, 3 Memoria in 02-23 tab, l 18:00: Aaron Route: PO, Gerda nn Drug form: TAB, Q12H, Priority: Routine, Start date: 02/23/11 13:00:00, Duration: 30 day, Stop date: 03/25/11 11:00:00 insulin No Val 10 unit, Kalia aida isophane-FILM COATER 02-21 0.1 mL, l H 22:00: Aaron Route: [place] 00 SUB-Q, Drug form: INJ, BID, Start date: 02/21/11 17:00:00, Stop date: 03/23/11 9:00:00 magnesium No Val 400 mg, 1 M emoria oxide 02-21 tab, l 22:00: Aaron Route: PO, Gerda nn Drug form: TAB, BID, Start date: 02/21/11 17:00:00, Duration: 5 day, Stop date: 02/26/11 9:00:00 calcium No Val 500 mg, 1 Mem oria carbonate 02-21 tab, l 19:26: Aaron Route: Jorge Alberto 00 CHEW, Drug form: CHEWTAB, TID, PRN Indigestio n, Start date: 02/21/11 14:26:00, Duration: 30 day, Stop date: 03/23/11 14:25:00 cefepime No Katie L 2 gm, Mem oria 02-20 Christianson Route: l 23:00: IVPB, Drug Jorge Alberto 00 form: INJ, ABXQ8H, Start date: 02/20/11 18:00:00, Stop date: 03/22/11 10:00:00 Lasix 40 mg No Val 40 mg, 1 Memoria oral tablet 02-20 Caitie tab, l 22:00: Aaron Route: PO, Gerda nn 00 Drug form: TAB, Daily, Start date: 02/20/11 17:00:00, Stop date: 03/22/11 9:00:00 heparin No Claudy 5,000 Memoria 5000 02-20 Salazar unit, 1 l units/mL 21:00: mL, Route: Her restrepo injectable 00 SUB-Q, solution Drug form: INJ, Q8H, Start date: 02/20/11 16:00:00, Duration: 30 day, Stop date: 03/22/11 8:00:00 Dale No Claudy 1 tab, Memoria 7.5/325 02-20 Salazar Route: PO, l oral tablet 16:07: Drug Form: Jorge Alberto 00 TAB, Q4H, PRN Pain, Start date: 02/20/11 11:07:00, Duration: 30 day, Stop date: 03/22/11 11:06:00 Crestor No Albaro 20 mg, 2 Kalia aida 02-20 Demarco tab, l 14:00: Christopher Route: PO, Berto n 00 Drug form: TAB, Daily, Start date: 02/20/11 9:00:00, Duration: 30 day, Stop date: 03/21/11 9:00:00 senna No Albaro 8.6 mg, 1 Memor ia 02-20 Demarco tab, l 14:00: Christopher Route: PO, Berto n 00 Drug Form: TAB, Daily, Start date: 02/20/11 9:00:00, Duration: 30 day, Stop date: 03/21/11 9:00:00 [place] 0 No Albaro 120 mg, 2 Kalia aida Thyroid 02-20 Demarco tab, l 12:30: White Route: PO, Berto n 00 Drug [...] or times, Stop date: 02/20/11 7:00:00 potassium No Ramos L 20 mEq, M emoria chloride 02-20 Day 100 mL, l 09:00: Route: Jorge Alberto 00 IVPB, Q2H, Start date: 02/20/11 4:00:00, Duration: 2 doses or times, Stop date: 02/20/11 6:00:00 magnesium No Ramos L 4 gm, 100 Memoria sulfate 02-20 Day mL, Route: l 09:00: IVPB, Drug form: INJ, ONCE, Start date: 02/20/11 4:00:00, Stop date: 02/20/11 4:00:00 labetalol No Ambili M 5 mg, 1 M emoria 02-20 Kasi mL, Route: l 06:56: IV, Drug form: INJ, Q10Min, PRN Hypertensi on, Start date: 02/20/11 1:56:00, Duration: 30 day, Stop date: 03/22/11 1:55:00 NS 500 mL No Ambili M 500 mL, M emoria 02-20 Kasi Rate: l 03:07: 1,000 [place] 00 ml/hr, Infuse over: 0.5 hr, Route: IV, Total Volume: 500, Start date: 02/19/11 22:07:00, Duration: 1 doses or times, Stop date: 02/19/11 22:36:00, Bolus DoseBolus Dose calcium No Ambili M 1,000 mg, M emoria chloride 02-20 Kasi 10 mL, l 02:18: Route: IV, Jorge Alberto Drug form: INJ, ONCE, Start date: 02/19/11 21:18:00, Stop date: 02/19/11 21:18:00 Tylenol No Claudy 650 mg, 2 Kalia aida 02-20 Salazar tab, l 02:13: Route: PO, Jorge Alberto Drug form: TAB, Q4H, PRN Fever, Start [...] Kasi 20.3 mL, l 01:04: Route: PO, Jorge Alberto 00 Drug form: LIQ, Q4H, PRN Fever, Start [...] mg, 1 Me moria sodium 100 02-19 Demarco cap, l mg oral 22:00: Christopher Route: PO, Her restrepo capsule Drug form: CAP, BID, Start date: 02/19/11 17:00:00, Duration: 30 day, Stop date: 03/21/11 9:00:00 Dale 5/325 No Albaro 1 tab, Me moria oral tablet 02-19 Dav Route: PO, l 21:14: Christopher Drug Form: Berto n 00 TAB, Q4H, PRN Pain, Start date: 02/19/11 16:14:00, Duration: 30 day, Stop date: 03/21/11 16:13:00 ciprofloxac No Laure Thi 400 mg, Memoria in 02-19 Sahu 200 mL, l 21:10: Route: [place] 00 IVPB, Drug form: INJ, [id number], Priority: NOW, Start date: 02/19/11 16:10:00, Duration: 30 day, Stop date: 03/21/11 4:10:00 vancomycin No Sky 2 gm, Kalia aida 02-19 Ollie Rizvi Route: l 21:02: IVPB, [place] 00 ONCE, Priority: STAT, Start date: 02/19/11 [...] Rate: 75 l 0.9% IV 20:56: ml/hr, [place] 1,000 mL 00 Infuse over: 13.3 hr, Route: IV, Total Volume: 1,000, Start date: 02/19/11 15:56:00, Stop date: 03/21/11 15:55:00 insulin No Albaro 7 unit, Memor ia regular 02-19 Dav 0.07 mL, l human 20:51: Christopher Route: Jorge Alberto recombinant 00 SUB-Q, 100 Drug form: units/mL SOLN, PRN, injectable PRN solution Abnormal Lab Result, Start date: 02/19/11 15:51:00, Duration: 30 day, Stop date: 03/21/11 15:50:00 Dextrose No Albaro 6.25 gm, Mem oria 50% Syringe 02-19 Demarco 12.5 mL, l 20:51: Christopher Route: [place] 00 IVP, Drug Form: INJ, PRN, PRN Abnormal Lab Result, Start date: 02/19/11 15:51:00, Duration: 30 day, Stop date: 03/21/11 15:50:00 Saline No Albaro 5 ml, Memoria Flush 0.9% 02-19 Demarco Route: l 20:51: Christopher IVP, Drug Form: INJ, PRN, PRN Line Flush, Start date: 02/19/11 15:51:00, Duration: 30 day, Stop date: 03/21/11 15:50:00 morphine No Albaro 2 mg, 1 Kalia aida Sulfate 02-19 Demarco mL, Route: l 20:51: Christopher IVP, Drug form: INJ, Q1H, PRN Pain Score 7-10, Start date: 02/19/11 15:51:00, Duration: 30 day, Stop date: 03/21/11 15:50:00 flumazenil No Boone 0.2 mg, 2 Memoria 02-19 r J Carlos mL, Route: l 19:18: Herman IVP, Drug Berto n form: INJ, PRN, PRN Other -See Comment, [...] 02-19 Salazar 0.15 mL, l 19:18: Route: [place] 00 IVP, Drug form: INJ, Q5Min, PRN [...] l 19:18: Herman IVP, Drug Berto n form: INJ, Q5Min, PRN Elevated BP, Start date: 02/19/11 14:18:00, Duration: 5 doses or times, Stop date: 02/20/11 0:00:00 vancomycin No Sky 1 gm, Kalia aida 02-19 Ollie Rizvi Route: l 19:00: IVPB, Drug [place] form: INJ, [id number], Start date: 02/19/11 14:00:00, Duration: 30 day, Stop date: 03/21/11 2:00:00 ondansetron Yes Bonnie Jyotsna 4 mg, 2 Memoria 2 mg/mL 9-20 Zeider mL, IVP, l injectable 21:12: Q8H, PRN, He rmann solution 09 30 mL, Nausea & Vomiting, Substituti on Allowed, SOLN Milk of Yes Bonnie Jyotsna 1.2 gm, 5 Memoria Magnesia 9-20 Zeider mL, PO, l 24% oral 21:12: Daily, [place] concentrate 02 PRN, 150 mL, Constipati on, Substituti on Allowed, Maintenanc e, CONC Prinivil 10 Yes Bonnie Jyotsna 10 mg, 1 Memoria mg oral 9-20 Zeider tab, PO, l tablet 21:11: QPM, 30 Jorge Alberto 52 tab, Substituti on Allowed, TAB Keppra 500 Yes Bonnie Jyotsna 500 mg, 1 Memoria mg oral 9-20 Zeider tab, PO, l tablet 21:11: Q12H, 60 Jorge Alberto 44 tab, Substituti on Allowed, TAB Humulin [...] tab, PO, l tablet 21:09: BID, 60 Jorge Alberto 07 tab, Substituti on Allowed, TAB bisacodyl Yes Bonnie Jyotsna 10 mg, 1 Memoria 10 mg 9-20 Zeider supp, IN, l rectal 21:08: Bedtime, Jorge Alberto suppository 53 PRN, 30 supp, Constipati on, Substituti on Allowed, SUPP Dale 5/325 Yes Bonnie Jyotsna 1 tab, PO, Memoria oral tablet 9-20 Zeider Q4H, PRN, l 21:08: 30 tab, as Jorge Alberto 50 needed for pain, Substituti on Allowed, Maintenanc e, TAB [place] Yes Bonnie Jyotsna 120 mg, 1 Memoria Thyroid 120 9-20 Zeider tab, PO, l mg oral 21:08: Daily, 30 Gerda nn tablet 42 tab, Substituti on Allowed, TAB Crestor 20 Yes Bonnie Jyotsna 20 mg, 1 Memoria mg oral 9-20 Zeider tab, PO, l tablet 21:08: Daily, 30 Berto n 31 tab, Substituti on Allowed, TAB metFORmin Yes Bonnie Jyotsna 500 mg, 1 Memoria 500 mg oral 9-20 Zeider tab, PO, l tablet 21:08: Q8H, 90 [place] 06 tab, Substituti on Allowed, TAB normal No Katie L 1,000 mL, M emoria saline 0.9% 9-20 Christianson Rate: 100 l IV 1,000 mL 16:29: ml/hr, Herm mercy 00 Infuse over: 10 hr, Route: IV, Total Volume: 1,000, Start date: 02/18/11 11:29:00, Duration: 30 day, Stop date: 03/20/11 11:28:00 potassium No 25 mEq, Memor ia bicarbonate -15 Substituti l 25 mEq oral 23:15: on Allowed Jorge Alberto tablet, 20 effervescen t potassium No Mujahed M 40 mEq, 30 Memoria chloride 9-14 Alikhan mL, Route: l 16:00: PO, Drug [...] 02-11 Dean Rate: l 13:37: Joel 1,000 [place] 00 ml/hr, Infuse over: 1 hr, Route: IV, Total Volume: 1,000, Priority: STAT, Start date: 02/11/11 8:37:00, Duration: 1 doses or times, Stop date: 02/11/11 9:36:00, Bolus DoseBolus Dose dexamethaso No Bonnie Jyotsna 1 mg, 1 Memoria ne 02-11 Zeider tab, l 13:00: Route: PO, [place] Drug form: TAB, Daily, Start date: 02/11/11 8:00:00, Duration: 2 day, Stop date: 02/12/11 8:00:00 Fleet Enema No Skyler 133 ml, Memoria 02-10 Dean Route: IN, l 19:15: Joel Drug Form: Herm mercy 00 JEANNIE, ONCE, Start date: 02/10/11 14:15:00, Stop date: 02/10/11 14:15:00 bisacodyl No Skyler 10 mg, 1 M emoria 02-10 Dean supp, l 19:15: Joel Route: IN, Herm mercy Drug form: SUPP, ONCE, Start date: 02/10/11 14:15:00, Stop date: 02/10/11 14:15:00 dexamethaso No Bonnie Jyotsna 1 mg, 1 Memoria ne 02-09 Zeider tab, l 13:00: Route: PO, Jorge Alberto Drug form: TAB, BID, Start date: 02/09/11 8:00:00, Duration: 2 day, Stop date: 02/10/11 20:00:00 Xylocaine No Lam M 1 appl, Al moria Jelly 2% 02-08 Allam Route: l topical gel 21:04: TOP, Q6H, H ermann with 00 Drug form: applicator GEL PRN Pain, Start date: 02/08/11 16:04:00, Duration: 30 day, Stop date: 03/10/11 16:03:00 dexamethaso No Meilani H 1 mg, 1 Memoria ne 02-07 [place] tab, l 13:00: Route: PO, Jorge Alberto 00 Drug form: TAB, TID, Start date: 02/07/11 8:00:00, Duration: 2 day, Stop date: 02/08/11 17:00:00 Prinivil No Bonnie Jyotsna 10 mg, 1 Memoria 02-06 Zeider tab, l 22:00: Route: PO, Jorge Alberto Drug form: TAB, QPM, Start date: 02/06/11 17:00:00, Duration: 30 day, Stop date: 03/07/11 17:00:00 dexamethaso No Meilani H 2 mg, 1 Memoria ne 02-05 [place] tab, l 13:00: Route: PO, [place] Drug form: TAB, TID, Start date: 02/05/11 8:00:00, Duration: 2 day, Stop date: 02/06/11 17:00:00 lisinopril 2010-0 No Bonnie Jyotsna 10 mg, 1 Memoria 9- Zeider tab, l 13:00: Route: PO, [place] 00 Drug form: TAB, QPM, Start date: 02/04/11 8:00:00, Duration: 30 day, Stop date: 03/05/11 17:00:00 insulin 2010-0 No Meghed M 8 unit, Al moria isophane-FILM COATER 9-06 Alikhan 0.08 mL, l H 11:30: Route: [place] 00 SUB-Q, Drug form: INJ, Before Breakfast, Start date: 02/04/11 6:30:00, Stop date: 03/05/11 6:30:00 insulin 2010-0 No Meghed M 8 unit, Al moria isophane-FILM COATER 9-06 Alikhan 0.08 mL, l H 02:00: Route: [place] 00 SUB-Q, Drug form: INJ, Bedtime, Start date: 02/03/11 21:00:00, Stop date: 03/04/11 21:00:00 potassium 2010-0 No Darcy 40 mEq, 2 Memoria chloride 20 -05 Jeane tab, l mEq oral 19:29: [place] Route: PO, Jorge Alberto tablet, 00 Drug form: extended ERTAB, release ONCE, Start date: 02/03/11 14:29:00, Stop date: 02/03/11 14:29:00 potassium 2010-0 No Bonnie Jyotsna 40 mEq, 2 Memoria chloride 20 -05 Zeider tab, l mEq oral 14:00: Route: PO, Her restrepo tablet, 00 Drug form: extended ERTAB, release Daily, Start date: 02/03/11 9:00:00, Stop date: 03/05/11 8:00:00 dexamethaso 2010-0 No Meilani H 3 mg, 1.5 Memoria ne 05 [place] tab, l 13:00: Route: PO, Jorge Alberto 00 Drug form: TAB, TID, Start date: 02/03/11 8:00:00, Duration: 2 day, Stop date: 02/04/11 17:00:00 insulin No Darcy 15 unit, Memoria isophane-FILM COATER 02-03 Jeane 0.15 mL, l H 05:00: [place] Route: [place] 00 SUB-Q, Drug form: INJ, Q24H, Start date: 02/03/11 0:00:00, Duration: 30 day, Stop date: 03/04/11 0:00:00 Keppra No Meilani H 500 mg, 1 M emoria 02-03 [place] tab, l 02:00: Route: PO, Jorge Alberto 00 Drug form: TAB, Q12H, Start date: 02/02/11 21:00:00, Duration: 30 day, Stop date: 03/04/11 9:00:00 hydrALAZINE No Darcy 25 mg, 1 Memoria 25 mg oral 02-01 Jeane tab, l tablet 22:00: [place] Route: PO, H ermann Drug form: TAB, BID, Start date: 02/01/11 17:00:00, Stop date: 03/03/11 8:00:00 heparin No Sky 5,000 Memoria 02-01 Mzee Rizvi unit, 1 l 21:00: mL, Route: [place] 00 SUB-Q, Drug form: INJ, Q8H, Start date: 02/01/11 16:00:00, Duration: 30 day, Stop date: 03/03/11 8:00:00 Kayexalate No Darcy 15 gm, 60 Memoria 02-01 Jeane mL, Route: l 18:19: [place] PO, Drug Gerda nn 00 form: SUSP, ONCE, Start date: 02/01/11 13:19:00, Stop date: 02/01/11 13:19:00 potassium No Darcy 20 mEq, 1 Memoria chloride 20 02-01 Jeane tab, l mEq oral 14:00: [place] Route: PO, Jorge Alberto tablet, 00 Drug form: extended ERTAB, release Daily, Start date: 02/01/11 9:00:00, Duration: 30 day, Stop date: 03/02/11 9:00:00 Crestor No Bonnie Jyotsna 20 mg, 2 Memoria 02-01 Zeider tab, l 14:00: Route: PO, Jorge Alberto 00 Drug form: TAB, Daily, Start date: 02/01/11 9:00:00, Duration: 30 day, Stop date: 03/02/11 9:00:00 Lasix 40 mg No Fide B 80 mg, 2 Memoria oral tablet 02-01 Dean tab, l 14:00: Route: PO, Jorge Alberto 00 Drug form: TAB, Daily, Start date: 02/01/11 9:00:00, Duration: 30 day, Stop date: 03/02/11 9:00:00 atenolol 50 No Darcy 50 mg, 1 Memoria mg oral 02-01 Jeane tab, l tablet 14:00: Ash Route: PO, H erm Drug form: TAB, Daily, Start date: 02/01/11 9:00:00, Duration: 30 day, Stop date: 03/02/11 9:00:00 [place] No Bonnie Jyotsna 120 mg, 2 Memoria Thyroid 02-01 Zeider tab, l 14:00: Route: PO, Drug form: TAB, Daily, Start date: 02/01/11 9:00:00, Duration: 30 day, Stop date: 03/02/11 9:00:00 dexamethaso No Bonnie Jyotsna 4 mg, 1 Memoria ne 02-01 Zeider tab, l 05:00: Route: PO, [place] 00 Drug form: TAB, Q8H, Start date: 02/01/11 [...] l solution 02:00: [place], Drug Gerda nn 00 form: SOLN, Q12H, Start date: 01/31/11 21:00:00, Duration: 30 day, Stop date: 03/02/11 9:00:00 Insulin No Gideon 1 unit, Kalia aida regular 01-31 Jv 0.01 mL, l 22:22: Nur Route: [place] 00 SUB-Q, Drug form: SOLN, TID-Before Meals, PRN Blood Glucose Results, Start date: 01/31/11 17:22:00, Duration: 30 day, Stop date: 03/02/11 17:21:00 Milk of No Gideon 30 mL, Memor ia Magnesia 01-31 Jv Route: PO, l 22:22: Nur Drug Form: Gerda nn 00 SUSP, Daily, PRN Constipati on, Start date: 01/31/11 17:22:00, Duration: 30 day, Stop date: 03/02/11 17:21:00 bisacodyl No Gideon 10 mg, 1 M emoria 01-31 Jv supp, l 22:22: Nur Route: IN, Gerda nn Drug form: SUPP, Bedtime, PRN Constipati on, Start date: 01/31/11 17:22:00, Duration: 30 day, Stop date: 03/02/11 17:21:00 ondansetron No Gideon 4 mg, 2 Memoria 01-31 Jv mL, Route: l 22:22: Nur IVP, Drug Berto n 00 form: INJ, [...] once every 8 hours Byrob No Bonnie Goyal Route: Mem oria 01-31 Zeider SUB-Q, l 22:00: Drug form: Jorge Alberto 00 INJ, BID, Start date: 01/31/11 17:00:00, Duration: 30 day, Stop date: 03/02/11 9:00:00 metFORmin No Bonnie Jyotsna 500 mg, 1 Memoria 500 mg oral 01-31 Zeider tab, l tablet 21:00: Route: PO, Gerda nn 00 Drug form: TAB, Q8H, Start date: 01/31/11 16:00:00, Duration: 30 day, Stop date: 03/02/11 8:00:00 Dale 5/325 No Bonnie Jyotsna 1 tab, Memoria oral tablet 01-31 Zeider Route: PO, l 19:56: Drug Form: [place] 00 TAB, Q4H, PRN as needed for pain, Start date: 01/31/11 14:56:00, Duration: 30 day, Stop date: 03/02/11 14:55:00 bisacodyl No Bonnie Jyotsna 10 mg, Memoria 01-31 Zeider Route: IN, l 19:56: Drug form: [place] 00 SUPP, Daily, PRN as needed for [...] PO, l mg oral 17:52: BID, 60 [place] capsule 54 cap, Substituti on Allowed, CAP dexamethaso Yes Bonnie Jyotsna 4 mg, 1 Memoria ne 4 mg 01-31 Zeider tab, PO, l oral tablet 17:52: Q6H-02, 60 Jorge Alberto 42 tab, Substituti on Allowed, TAB bisacodyl Yes Bonnie Jyotsna 10 mg, 1 Memoria 10 mg 01-31 Zeider supp, IN, l rectal 17:52: Daily, Jorge Alberto suppository 36 PRN, 60 supp, Constipati on, Substituti on Allowed, SUPP Dale Yes Bonnie Goyal 1 tab, PO, Memoria oral tablet 01-31 Zeider Q4H, PRN, l 17:52: 60 tab, [place] 26 Headache, Substituti on Allowed, Maintenanc e, TAB Dale No Abel 1 tab, M emoria oral tablet 01-30 Howard Route: PO, l 20:44: Bonner Drug Form: Berto n 00 TAB, Q4H, PRN Headache, Start date: 01/30/11 15:44:00, Duration: 30 day, Stop date: 03/01/11 15:43:00 dexamethaso No Katie L 4 mg, 1 Memoria ne 01-29 Christianson tab, l 17:00: Route: PO, Jorge Alberto 00 Drug form: TAB, Q6H-02, Start date: 01/29/11 12:00:00, Stop date: 02/28/11 6:00:00 insulin No Memo 20 unit, Kalia aida isophane-FILM COATER 01-29 Omidvar 0.2 mL, l H 13:00: Route: Jorge Alberto 00 SUB-Q, Drug form: INJ, Q8H, Start date: 01/29/11 8:00:00, Stop date: 02/28/11 0:00:00 Keppra 100 No Juan J 500 mg, 5 Memoria mg/mL oral 01-29 Srikanth Boss mL, Route: l solution 02:00: JATIN, Drug Gerda nn form: SOLN, Q12H, Start date: 01/28/11 21:00:00, Duration: 30 day, Stop date: 02/27/11 9:00:00 ranitidine No Juan J 150 mg, 10 Memoria 15 mg/mL 01-29 Srikanth Boss mL, Route: l oral syrup 02:00: JATIN, Drug restrepo 00 form: SYRP, Q12H, Start date: 01/28/11 21:00:00, Duration: 30 day, Stop date: 02/27/11 9:00:00 Dextrose 2011-0 No Nazila 6.25 gm, Mem oria 50% Syringe 01-28 Shagagi 12.5 mL, l 22:39: Route: IVP, Drug Form: INJ, PRN, PRN Abnormal Lab Result, Start date: 01/28/11 17:39:00, Duration: 30 day, Stop date: 02/27/11 17:38:00 insulin No Emmanuel 3 unit, Memori a regular 01-28 Tatyana 0.03 mL, l human 22:39: George Route: SUB-Q, 100 Drug form: units/mL SOLN, PRN, injectable PRN solution Abnormal Lab Result, Start date: 01/28/11 17:39:00, Duration: 30 day, Stop date: 02/27/11 17:38:00 metFORmin No Darcy 1,000 mg, Memoria 1000 mg 01-28 Jeane 1 tab, l oral tablet 22:00: [place] Route: PO, Drug form: TAB, BID, Start date: 01/28/11 17:00:00, Duration: 30 day, Stop date: 02/27/11 9:00:00 heparin No Megan 5,000 Memoria 01-28 [place] unit, 1 l 05:00: mL, Route: SUB-Q, Drug form: INJ, Q8H, Start date: 01/28/11 0:00:00, Duration: 30 day, Stop date: 02/26/11 16:00:00 sodium Yes Ramos L 18 mmol, 6 M emoria phosphate 01-27 Day mL, Route: l 08:30: IV, ONCE, Start date: 01/27/11 3:30:00, Stop date: 01/27/11 3:30:00 normal No Emmanuel 1,000 mL, Memor ia saline 0.9% 01-26 Tatyana Rate: 50 l IV 1,000 mL 22:48: George ml/hr, Her rsetrepo 00 Infuse over: 20 hr, Route: IV, Total Volume: 1,000, Start date: 01/26/11 17:48:00, Duration: 30 day, Stop date: 02/25/11 17:47:00 labetalol No Megan 200 mg, 1 M emoria 01-26 Avinash tab, l 21:00: Route: PO, [place] 00 Drug form: TAB, Q8H, Start date: 01/26/11 16:00:00, Stop date: 02/25/11 8:00:00 dexamethaso No Sky 6 mg, 1 M emoria ne 01-26 Ollie Rizvi tab, l 21:00: Route: PO, [place] 00 Drug form: TAB, Q4H, Start date: 01/26/11 [...] ne 01-26 Route: l 17:00: IVP, Q6H, Start date: 01/26/11 12:00:00, Duration: 30 day, Stop date: 02/25/11 6:00:00 mannitol No Isabel 75 gm, 375 Me moria 01-26 Manasa mL, Route: l 17:00: Christian IVPB, Drug form: INJ, Q6H, Start date: 01/26/11 12:00:00, Duration: 30 day, Stop date: 02/25/11 6:00:00 mannitol No Imoigele P 75 gm, 375 Memoria 01-26 Aisiku mL, Route: l 15:00: IVPB, Drug form: INJ, ONCE, Start date: 01/26/11 10:00:00, Stop date: 01/26/11 10:00:00 potassium No Miles D 36 mmol, M emoria phosphate 01-26 Christian 12 mL, l 08:29: Route: Jorge Alberto 00 IVPB, On Adm, Start date: 01/26/11 3:29:00, Duration: 1 doses or times, Stop date: 01/26/11 8:00:00 mannitol 2010-0 No Odell Voda 50 gm, Mem oria 8-27 Route: l 22:50: IVPB, Jorge Alberto 00 ONCE, Start date: 01/25/11 17:50:00, Stop date: 01/25/11 17:50:00 heparin No Sky 5,000 Memoria 8-27 [facility] unit, 1 l 21:00: mL, Route: [facility] 00 SUB-Q, Drug form: INJ, Q8H, Start date: 01/25/11 16:00:00, Duration: 30 day, Stop date: 02/24/11 8:00:00 sodium 2010- Yes Miles D 15 mmol, 5 Me moria phosphate - Christian mL, Route: l 13:20: IV, ONCE, Start date: 01/25/11 8:20:00, Stop date: 01/25/11 8:20:00 sodium No Miles D 15 mmol, Kalia aida phosphate - Christian Route: l 11:44: IVPB, PRN, PRN Abnormal Lab Result, Start date: 01/25/11 6:44:00, Duration: 30 day, Stop date: 02/24/11 6:43:00 magnesium 2010- No Miles D 4 gm, 100 Memoria sulfate - Christian mL, Route: l 11:44: IVPB, Drug form: INJ, ONCE, Start date: 01/25/11 6:44:00, Duration: 1 doses or times, Stop date: 01/25/11 6:44:00, For Mg = 1.5 - 1.7 mg/dLFor Mg = 1.5 - 1.7 mg/dL hydrALAZINE No Miles D 10 mg, 0.5 Memoria 8-27 Christian mL, Route: l 05:14: IV, Drug form: INJ, Q30Min, PRN Hypertensi on, Start date: 01/25/11 0:14:00, Duration: 30 day, Stop date: 02/24/11 0:13:00 dexamethaso No Sky 10 mg, 1 Memoria ne 01-25 Ollie Rizvi mL, Route: l 05:00: IV, Drug form: INJ, Q6H, Start date: 01/25/11 0:00:00, Stop date: 02/23/11 18:00:00 Insulin No Megan 99 mL, Memori a regular 100 8-27 [place] Rate: l unit + 04:59: TITRATE, [facility] Sodium 00 Route: IV, Chloride Total 0.9% IV 99 Volume: mL 100, Start date: 01/24/11 23:59:00, Duration: 30 day, Stop date: 02/23/11 23:58:00 Dextrose No Miles D 12.5 gm, Me moria 50% Syringe 01-25 Christian 25 mL, l 04:41: Route: Jorge Alberto 00 IVP, Drug Form: INJ, PRN, PRN Abnormal Lab Result, Start date: 01/24/11 23:41:00, Duration: 30 day, Stop date: 02/23/11 23:40:00 Insulin No Miles D 100 mL, Kalia aida regular 100 01-25 Christian Rate: l unit + 04:41: Start at Sodium 0.05 Chloride units/kg/h 0.9% our-, (titrate) Route: 100 mL IVPB, Total Volume: 100, Duration: 30 day, Stop date: 02/23/11 23:41:00, Replace Every: 24 hr labetalol No Miles D 10 mg, 2 M emoria 01-25 Christian mL, Route: l 03:36: IV, Drug form: INJ, Q15Min, PRN Hypertensi on, Start date: 01/24/11 22:36:00, Duration: 30 day, Stop date: 02/23/11 22:35:00 levetiracet No Juan J 500 mg, M emoria am 01-25 Srikanth Clay Route: IV, l 02:00: Q12H, [place] 00 Start date: 01/24/11 21:00:00, Duration: 30 day, Stop date: 02/23/11 9:00:00 famotidine No Juan J 20 mg, 2 M emoria 01-25 Srikanth Boss mL, Route: l 02:00: [...] topical 01-25 Ryan Route: l 0.12% 01:00: S&SPIT, [place] liquid 00 Q4H, Drug form: LIQ, Start [...] J 1 gm, Kalia aida 01-24 Srikanth Boss Route: l 14:00: IVPB, Drug form: INJ, [id number], Start date: 01/24/11 9:00:00, Duration: 30 day, Stop date: 02/22/11 21:00:00 famotidine No Miles D 20 mg, 1 Memoria 20 mg oral 01-24 Christian tab, l tablet 02:00: Route: PO, Gerda nn 00 Drug form: TAB, Q12H, Start date: 01/23/11 21:00:00, Duration: 30 day, Stop date: 02/22/11 9:00:00 potassium Yes 20 mEq, Memor ia chloride 20 8-26 PO, Daily, l mEq oral 00:21: Substituti Her restrepo tablet, 33 on extended Allowed, release TAB Lasix 40 mg Yes 80 mg, 2 Me moria oral tablet 8- tab, PO, l 00:20: Daily, 30 Jorge Alberto 49 tab, Substituti on Allowed, TAB heparin No Megan 5,000 Memoria 5000 8-25 [place] unit, 1 l units/mL 21:00: mL, Route: Her restrepo injectable 00 SUB-Q, solution Drug form: INJ, Q8H, Start date: 01/23/11 16:00:00, Duration: 30 day, Stop date: 02/22/11 8:00:00 Byetta Yes 250 mcg, Memoria 8-25 SUB-Q, l 19:31: BIDJorge Alberto 55 Substituti on Allowed, INJ cephalexin Yes 500 mg, Klaia aida monohydrate 8-25 PO, TID, l 500 mg oral 19:30: Substituti Jorge Alberto tablet 52 on Allowed, CAP Levaquin Yes 1 tab, PO, Mem oria 500 mg oral 8-25 Q24H, 10 l tablet 19:30: Jorge Alberto jimenez 16 Substituti on Allowed, TAB metFORmin Yes 500 mg, Memor ia 500 mg oral 8-25 PO, TID, l tablet 19:30: Substituti Gerda nn 00 on Allowed, TAB Crestor 20 Yes 1 tab, PO, M emoria mg oral 8-25 Daily, 30 l tablet 19:29: Jorge Alberot jimenez 42 Substituti on Allowed, TAB benzonatate Yes 1 cap, PO, Memoria 200 mg oral 8-25 TID, 30 l capsule 19:29: Jorge Alberto chen 30 Substituti on Allowed, CAP atenolol 50 Yes 1 tab, PO, Memoria mg oral 8-25 Daily, 30 l tablet 19:29: Jorge Alberto jimenez 06 Substituti on Allowed [place] Yes Bonnie Goyal 1 tab, PO, Memoria Thyroid 120 8-25 Zeider Daily, 30 l mg oral 19:28: tabJorge Alberto tablet 50 Substituti on Allowed, TAB docusate No Roopa Tatyana 100 mg, 1 Memoria 8-25 Ryan cap, l 14:00: Route: PO, [place] 00 Drug form: CAP, BID, Start date: 01/23/11 9:00:00, Stop date: 02/21/11 17:00:00 Senna 8.6 2010- No Gideon 8.6 mg, 1 Memoria mg oral 825 Jv tab, l tablet 14:00: Nur Route: PO, Drug Form: TAB, Q12H, Start date: 01/23/11 9:00:00, Duration: 30 day, Stop date: 02/21/11 21:00:00 levetiracet No Miles D 500 mg, 1 Memoria am 01-23 Christian tab, l 14:00: Route: PO, Drug form: TAB, Q12H, Start date: 01/23/11 9:00:00, Duration: 30 day, Stop date: 02/21/11 21:00:00 calcium 2010- No Ramos L 1,000 mg, M emoria chloride 01-23 Day 10 mL, l 13:30: Route: IVPB, ONCE, Start date: 01/23/11 8:30:00, Stop date: 01/23/11 8:30:00 magnesium 2010- No Ramos L 2 gm, 50 Memoria sulfate 01-23 Day mL, Route: l 13:20: IVPB, Drug form: INJ, Q2H, Start date: 01/23/11 8:20:00, Duration: 2 doses or times, Stop date: 01/23/11 10:00:00 dexamethaso No Miles D 4 mg, 1 Memoria ne 01-23 Christian tab, l 11:00: Route: PO, Drug form: TAB, Q6H, Start date: 01/23/11 6:00:00, Duration: 30 day, Stop date: 02/22/11 0:00:00 acetaminoph 2010- No Gideon 650 mg, 2 Memoria en 825 Jv tab, l 10:22: Nur Route: PO, Gerda Drug form: TAB, Q4H, PRN Pain/Fever , Start date: 08/25/11 5:22:00, Duration: 30 day, Stop date: 02/22/11 5:21:00 morphine 2010- No Sky 2 mg, 1 Kalia aida Sulfate 8-25 Mzee Rizvi mL, Route: l 10:22: IVP, Drug [place] 00 form: INJ, Q4H, PRN Pain Score 4-6, Start date: 01/23/11 5:22:00, Duration: 30 day, Stop date: 02/22/11 5:21:00, Hold for respirator y rate of 8 or less NS + KCL No Isabel 1,000 mL, Mem oria 20mEq/L 8-25 Manasa Rate: 60 l 1000ml 10:21: Christian ml/hr, [place] [facility] (Premix) 00 Infuse 1,000 mL over: 16.7 1,000 mL hr, Route: IV, Total Volume: 1,000, Start date: 01/23/11 5:21:00, Duration: 30 day, Stop date: 02/22/11 5:20:00 insulin 2010- No Gideon 5 unit, Kalia aida regular 8-25 Jv 0.05 mL, l human 10:14: Nur Route: [place] recombinant 00 SUB-Q, 100 Drug form: units/mL SOLN, PRN, injectable PRN solution Abnormal Lab Result, Start date: 01/23/11 5:14:00, Duration: 30 day, Stop date: 02/22/11 5:13:00 Dextrose 2010- No Gideon 6.25 gm, Me moria 50% Syringe 8-25 Jv 12.5 mL, l 10:14: Nur Route: Jorge Alberto 00 IVP, Drug Form: INJ, PRN, PRN Abnormal Lab Result, Start date: 01/23/11 5:14:00, Duration: 30 day, Stop date: 02/22/11 5:13:00 Saline 2010- No Gideon 5 ml, Memoria Flush 0.9% 8-25 Jv Route: l 10:14: Nur IVP, Drug [place] 00 Form: INJ, PRN, PRN Line Flush, Start date: 01/23/11 5:14:00, Duration: 30 day, Stop date: 02/22/11 5:13:00 bisacodyl No Gideon 10 mg, 1 M emoria 8-25 Jv supp, l 10:14: Nur Route: IN, Gerda nn 00 Drug form: SUPP, Daily, PRN Constipati on, Start date: 01/23/11 5:14:00, Duration: 30 day, Stop date: 02/22/11 5:13:00 acetaminoph No Gideon 650 mg, 2 Memoria en 8-25 Jv tab, l 10:14: Nur Route: PO, Gerda nn 00 Drug form: TAB, Q4H, PRN Pain/Fever , Start date: 01/23/11 5:14:00, Duration: 30 day, Stop date: 02/22/11 5:13:00 morphine No Gideon 2 mg, 1 Mem oria Sulfate 8-25 Jv mL, Route: l 10:14: Boom IVP, Drug [place] 00 form: INJ, Q1H, PRN Pain Score 7-10, Start date: 01/23/11 5:14:00, Duration: 30 day, Stop date: 02/22/11 5:13:00 ondansetron No Gideon 4 mg, 2 Memoria 8-25 Jv mL, Route: l 10:14: Boom IVP, Drug [place] 00 form: INJ, Q8H, PRN Nausea & Vomiting, Start date: 01/23/11 5:14:00, Duration: 30 day, Stop date: 02/22/11 5:13:00 Mestinon 60 Mestinon 60 Yes U nivers MG Oral MG Oral ity of Tablet Tablet [place] [facility] Trulicity Trulicity Yes Unive rs 0.75 0.75 ity of MG/0.5ML MG/0.5ML [place] Subcutaneou Subcutaneou P hysici s Solution s [...] Oral MG Oral ity of Capsule Capsule [place] [facility] amLODIPine amLODIPine Yes Uni vers Besylate 5 Besylate 5 ity of MG Oral MG Oral [place] Tablet Tablet Physici ans Lantus SOLN Lantus SOLN Yes U nivers ity of [place] [facility] Plavix 75 Plavix 75 Yes Unive rs MG Oral MG Oral ity of Tablet Tablet [place] [facility] Gabapentin Gabapentin Yes Uni vers 100 MG TABS 100 MG TABS i ty of [place] [facility] Vital Signs Vital Name Observation Time Observation Value Comments Source Respitory Rate 2020-02-27 [facility] mercy 18:00:00 Systolic (mm Hg) 2020-02-27 [facility] rmann 18:00:00 Diastolic (mm Hg) 2020-02-27 [facility] ermann 18:00:00 Respitory Rate 2020-02-27 [facility] mercy 17:00:00 Respitory Rate 2020-02-27 [facility] mercy 16:00:00 Systolic (mm Hg) 2020-02-27 [facility] rmann 14:00:00 Diastolic (mm Hg) 2020-02-27 [facility] ermann 14:00:00 Systolic (mm Hg) 2020-02-27 [facility] rmann 12:00:00 Diastolic (mm Hg) 2020-02-27 [facility] ermann 12:00:00 Temperature Oral 2020-02-23 98.4 F [facility] rmann (F) 01:00:00 Temperature Oral 2020-02-22 98.8 F [facility] rmann (F) 21:35:00 Temperature Oral 2020-02-22 96.8 F [facility] rmann (F) 18:00:00 Respitory Rate 2020-02-20 [facility] mercy 07:00:00 Respitory Rate 2020-02-20 [facility] mercy 06:00:00 Temperature Oral 2020-02-20 98 F [facility] rmann (F) 05:00:00 Respitory Rate 2020-02-20 [facility] mercy 05:00:00 Systolic (mm Hg) 2020-02-20 [facility] rmann 05:00:00 Diastolic (mm Hg) 2020-02-20 [facility] ermann 05:00:00 Systolic (mm Hg) 2020-02-20 [facility] rmann 03:00:00 Diastolic (mm Hg) 2020-02-20 [facility] ermann 03:00:00 Temperature Oral 2020-02-20 97.4 F [facility] rmann (F) 01:00:00 Systolic (mm Hg) 2020-02-20 [facility] rmann 01:00:00 Diastolic (mm Hg) 2020-02-20 [facility] ermann 01:00:00 Temperature Oral 2020-02-16 98 F [facility] rmann (F) 21:00:00 Heart Rate 2020-02-16 [facility] 12:21:00 Heart Rate 2020-02-16 [facility] 09:32:00 Heart Rate 2020-02-16 [facility] 05:09:00 Height 2020-02-15 149.86 cm [facility] 22:43:00 Weight 2020-02-15 [facility] 22:43:00 BMI Calculated 2020-02-15 [facility] 22:43:00 Systolic blood 2020-02-15 136 mm[Hg] [facility] - pressure 13:00:00 [facility] Diastolic blood 2020-02-15 63 mm[Hg] [facility] - pressure 13:00:00 [facility] Heart rate 2020-02-15 71 /min [facility] - 13:00:00 [facility] Body temperature 2020-02-[address] [facility] - 13:00:00 [facility] Respiratory rate 2020-02-15 18 /min [facility] - 13:00:00 [facility] Oxygen saturation 2020-02-15 96 /min [facility] in Arterial blood 13:00:00 [facility] nter by Pulse oximetry Body height 2020-02-[address] [facility] - 22:11:00 [facility] Body weight 2020-02-[address] [facility] - 22:11:00 [facility] BMI 2020-02-11 37.63 kg/m2 [facility] - 22:11:00 [facility] Heart Rate 2019-12-20 [facility] 16:56:00 Respitory Rate 2019-12-20 [facility] 16:56:00 Systolic (mm Hg) 2019-12-20 [facility] rmann 16:56:00 Diastolic (mm Hg) 2019-12-20 [facility] ermann 16:56:00 Heart Rate 2019-12-20 [facility] 13:24:00 Respitory Rate 2019-12-20 [facility] 13:24:00 Systolic (mm Hg) 2019-12-20 [facility] 13:24:00 Diastolic (mm Hg) 2019-12-20 [facility] 13:24:00 Heart Rate 2019-12-20 [facility] 09:00:00 Respitory Rate 2019-12-20 [facility] 09:00:00 Systolic (mm Hg) 2019-12-20 [facility] 09:00:00 Diastolic (mm Hg) 2019-12-20 [facility] 09:00:00 Temperature Oral 2019-12-20 97.6 F [facility] (F) 00:55:00 Temperature Oral 2019-12-19 97.5 F [facility] (F) 21:47:00 Temperature Oral 2019-12-19 97.5 F [facility] (F) 14:14:00 Height 2019-12-06 149.86 cm [facility] 20:12:00 Height 2019-12-06 149.86 cm [facility] 16:07:00 Height 2019-12-06 149.86 cm [facility] 12:30:00 Systolic (mm Hg) 2019-12-01 [facility] 15:00:00 Diastolic (mm Hg) 2019-12-01 [facility] 15:00:00 Respitory Rate 2019-12-01 [facility] 15:00:00 Respitory Rate 2019-12-01 [facility] 14:00:00 Respitory Rate 2019-12-01 [facility] 13:00:00 Systolic (mm Hg) 2019-12-01 [facility] 12:00:00 Diastolic (mm Hg) 2019-12-01 [facility] 12:00:00 Systolic (mm Hg) 2019-12-01 [facility] 11:00:00 Diastolic (mm Hg) 2019-12-01 [facility] 11:00:00 Temperature Oral 2019-11-30 98.6 F [facility] (F) 22:43:00 Temperature Oral 2019-11-30 98.5 F [facility] (F) 17:11:00 Temperature Oral 2019-11-30 98.0 F [facility] (F) 01:05:00 Respitory Rate 2019-11-28 [facility] 18:00:00 Systolic (mm Hg) 2019-11-28 [facility] 18:00:00 Diastolic (mm Hg) 2019-11-28 [facility] 18:00:00 Respitory Rate 2019-11-28 [facility] 17:00:00 Systolic (mm Hg) 2019-11-28 [facility] 17:00:00 Diastolic (mm Hg) 2019-11-28 [facility] 17:00:00 Respitory Rate 2019-11-28 [facility] 16:00:00 Systolic (mm Hg) 2019-11-28 [facility] 16:00:00 Diastolic (mm Hg) 2019-11-28 [facility] 16:00:00 Respitory Rate 2019-11-28 [facility] 15:00:00 Systolic (mm Hg) 2019-11-28 [facility] 15:00:00 Diastolic (mm Hg) 2019-11-28 [facility] 15:00:00 Respitory Rate 2019-11-28 [facility] 14:45:00 Systolic (mm Hg) 2019-11-28 [facility] 14:45:00 Diastolic (mm Hg) 2019-11-28 [facility] 14:45:00 Respitory Rate 2019-11-28 [facility] 14:30:00 Systolic (mm Hg) 2019-11-28 [facility] 14:30:00 Diastolic (mm Hg) 2019-11-28 [facility] 14:30:00 Temperature Oral 2019-11-24 99.0 F [facility] rmann (F) 12:57:00 Height 2019-11-23 149.86 cm Jan Thomson n 07:25:00 Weight 2019-11-23 Jan Connoran n 07:25:00 BMI Calculated 2019-11-23 [facility] 07:25:00 Temperature Oral 2019-11-22 97.4 F [facility] (F) 14:53:00 Temperature Oral 2019-11-22 97.9 F [facility] (F) 11:18:00 Heart Rate 2019-11-22 Jan Connoran n 10:08:00 BP Systolic 2019-05-05 148 mm[Hg] [facility] 11:27:00 [place] [facility] BP Diastolic 2019-05-05 62 mm[Hg] [facility] 11:27:00 [place] [facility] Height 2019-05-05 59 [in_us] [facility] 11:27:00 [place] [facility] Temperature 2019-05-05 98.5 [degF] [facility] 11:27:00 [place] [facility] Heart Rate 2019-05-05 72 /min [facility] 11[facility]27:00 [place] [facility] Height 2019-05-05 59 [in_us] [facility] 11:26:00 [place] [facility] Temperature 2019-05-05 98.5 [degF] [facility] 11:26:00 [place] [facility] Temperature Oral 2019-03-04 98.8 F [facility] (F) 19:30:00 Heart Rate 2019-03-04 [facility] 19:30:00 Respitory Rate 2019-03-04 [facility] 19:30:00 Systolic (mm Hg) 2019-03-04 [facility] 19:30:00 Diastolic (mm Hg) 2019-03-04 [facility] 19:30:00 Temperature Oral 2019-03-04 97.9 F [facility] (F) 17:05:00 Heart Rate 2019-03-04 [facility] [...] mercy 14:39:00 Height 2019-01-25 59 [in_us] [facility] 08:41:00 [place] [facility] Temperature 2019-01-25 98.3 [degF] [facility] 08:41:00 [place] [facility] Temperature Oral 2019-01-10 97.6 F [facility] (F) 20:03:00 Heart Rate 2019-01-10 [facility] [...] He rmann 13:00:00 Diastolic (mm Hg) 2018-11-29 Jan Alston ermann 13:00:00 Height 2018-11-29 149.86 cm Jan Thomson n 12:44:00 BMI Calculated 2018-11-29 Jan Connor [facility] 12:44:00 Weight 2018-11-29 Jan Thomson n 12:44:00 Systolic (mm Hg) 2018-11-29 [facility] 12:44:00 Diastolic (mm Hg) 2018-11-29 [facility] ermann 12:44:00 Respitory Rate 2018-11-29 Jan Connor [facility] 12:44:00 Heart Rate 2018-11-29 Jan Thomson n 12:44:00 Temperature Oral 2018-11-29 98.7 F [facility] (F) 12:44:00 BP Systolic 2018-11-11 149 mm[Hg] Location: [facility] 12:31:00 Position: [place] [facility] BP Diastolic 2018-11-11 65 mm[Hg] Location: [facility] 12::00 Position: [place] [facility] Height 2018-11-11 59 [in_us] [facility] 12:31:00 [place] [facility] Weight 2018-11-11 213 [lb_av] [facility] 12:31:00 [place] [facility] Body Mass Index 2018-11-11 43.02 kg/m2 University o f Calculated 12:31:00 [place] [facility] Temperature 2018-11-11 97.6 [degF] Method: Oral [facility] 12:31:00 [place] [facility] Heart Rate 2018-11-11 74 /min Location: [facility] 12::00 Apical; [place] [facility] BP Systolic 2018-10-14 164 mm[Hg] Location: [facility] 12:27:00 Position: [place] [facility] BP Diastolic 2018-10-14 68 mm[Hg] Location: [facility] 12:27:00 Position: [place] [facility] Height 2018-10-14 59 [in_us] [facility] 12:27:00 [place] [facility] Weight 2018-10-14 215 [lb_av] [facility] 12:27:00 [place] [facility] Body Mass Index 2018-10-14 43.43 kg/m2 University o f Calculated 12:27:00 [place] [facility] Temperature 2018-10-14 98.5 [degF] Method: Oral [facility] 12:27:00 [place] [facility] Heart Rate 2018-10-14 84 /min Location: [facility] 12:27:00 Apical; [place] [facility] Systolic (mm [...] 23:07:00 BP Systolic 2018-09-21 136 mm[Hg] Location: [facility] 11:28:00 [place] [facility] BP Diastolic 2018-09-21 88 mm[Hg] Location: [facility] 11:28:00 [place] [facility] Height 2018-09-21 59 [in_us] [facility] 11:28:00 [place] [facility] Weight 2018-09-21 205 [lb_av] [facility] 11:28:00 [place] [facility] Body Mass Index 2018-09-21 41.41 kg/m2 University o f Calculated 11:28:00 [place] [facility] Temperature 2018-09-21 96.8 [degF] Method: Oral [facility] 11:28:00 [place] [facility] Heart Rate 2018-09-21 84 /min Location: [facility] 11:28:00 Apical; [place] [facility] Temperature Oral 2018-09-20 98.1 F [facility] (F) 16:58:00 Temperature Oral 2018-09-20 97.9 F [facility] (F) 13:14:00 Respitory Rate 2018-09-20 [facility] 13:00:00 Systolic (mm Hg) 2018-09-20 [facility] 13:00:00 Diastolic (mm Hg) 2018-09-20 [facility] 13:00:00 Respitory Rate 2018-09-20 [facility] 09:20:00 Systolic (mm Hg) 2018-09-20 [facility] 09:20:00 Diastolic (mm Hg) 2018-09-20 [facility] 09:20:00 Temperature Oral 2018-09-20 97.5 F [facility] (F) 09:15:00 Respitory Rate 2018-09-20 [facility] 08:00:00 Systolic (mm Hg) 2018-09-20 [facility] 08:00:00 Diastolic (mm Hg) 2018-09-20 [facility] 08:00:00 Height 2018-09-15 149.86 cm [facility] 13:11:00 Height 2018-09-15 149.86 cm [facility] 08:55:00 Height 2018-09-15 149.86 cm [facility] 04:33:00 Heart Rate 2018-09-11 [facility] 16:45:00 Heart Rate 2018-09-11 [facility] 13:44:00 Heart Rate 2018-09-11 [facility] 09:13:00 Respitory Rate 2018-09-10 [facility] 03:00:00 Systolic (mm Hg) 2018-09-10 [facility] 03:00:00 Diastolic (mm Hg) 2018-09-10 [facility] 03:00:00 Respitory Rate 2018-09-10 [facility] 01:00:00 Systolic (mm Hg) 2018-09-10 [facility] 01:00:00 Diastolic (mm Hg) 2018-09-10 [facility] 01:00:00 Systolic (mm Hg) 2018-09-09 [facility] 21:00:00 Diastolic (mm Hg) 2018-09-09 [facility] 21:00:00 Respitory Rate 2018-09-09 [facility] 21:00:00 BMI Calculated 2018-09-08 [facility] 11:09:00 Height 2018-09-08 149.86 cm [facility] 11:09:00 Weight 2018-09-08 [facility] 11:09:00 Systolic (mm Hg) 2018-08-20 [facility] 00:50:00 Diastolic (mm Hg) 2018-08-20 [facility] 00:50:00 Respitory Rate 2018-08-20 [facility] 00:50:00 Temperature Oral 2018-08-20 98.0 F [facility] (F) 00:50:00 Temperature Oral 2018-08-19 97.9 F [facility] (F) 20:51:00 Respitory Rate 2018-08-19 [facility] 19:00:00 Temperature Oral 2018-08-19 97.8 F [facility] (F) 17:23:00 Systolic (mm Hg) 2018-08-19 [...] rmann 20:59:00 Temperature Oral 2011-03-25 97.6 F [facility] (F) 20:59:00 Heart Rate 2011-03-25 [facility] 20:59:00 Respitory Rate 2011-03-25 [facility] 20:59:00 Temperature Oral 2011-03-25 97.8 F [facility] (F) 13:00:00 Respitory Rate 2011-03-25 [facility] [...] 12:42:00 Temperature Oral 2011-03-15 98.2 F [facility] (F) 12:42:00 Diastolic (mm Hg) 2011-03-15 [...] 20:12:00 Temperature Oral 2011-03-06 97.6 F [facility] (F) 20:12:00 Respitory Rate 2011-03-06 [facility] 20:12:00 Heart Rate 2011-03-06 [facility] 20:12:00 Diastolic (mm Hg) 2011-03-06 [facility] 20:12:00 Height 2011-02-26 149.86 cm [facility] 22:41:00 Weight 2011-02-26 [facility] 22:41:00 Temperature Oral 2011-02-26 98.2 F [facility] (F) 18:09:00 Heart Rate 2011-02-26 [facility] 18:09:00 Respitory Rate 2011-02-26 [facility] 18:09:00 Systolic (mm Hg) 2011-02-26 [facility] 18:09:00 Diastolic (mm Hg) 2011-02-26 [facility] 18:09:00 Temperature Oral 2011-02-26 98.9 F [facility] (F) 12:09:00 Heart Rate 2011-02-26 [facility] 12:09:00 Respitory Rate 2011-02-26 [facility] 12:09:00 Systolic (mm Hg) 2011-02-26 [facility] 12:09:00 Diastolic (mm Hg) 2011-02-26 [facility] 12:09:00 Temperature Oral 2011-02-26 98.7 F [facility] (F) 08:19:00 Respitory Rate 2011-02-26 [facility] [...] n 09:57:00 Temperature Oral 2011-02-19 98.6 F [facility] (F) 09:57:00 Respitory Rate 2011-02-19 [facility] 09:57:00 Systolic (mm Hg) 2011-02-19 [facility] 09:57:00 Diastolic (mm Hg) 2011-02-19 [facility] 09:57:00 Respitory Rate 2011-02-19 [facility] 03:09:00 Systolic (mm Hg) 2011-02-19 [facility] 03:09:00 Diastolic (mm Hg) 2011-02-19 [facility] 03:09:00 Heart Rate 2011-02-19 [facility] 03:09:00 Temperature Oral 2011-02-19 97.5 F [facility] (F) 03:09:00 Diastolic (mm Hg) 2011-02-18 [facility] 20:00:00 Temperature Oral 2011-02-18 98.4 F Jan Kevin rmann (F) 20:00:00 Heart Rate 2011-02-18 [facility] 20:00:00 Respitory Rate 2011-02-18 [facility] 20:00:00 Systolic (mm Hg) 2011-02-18 [facility] 20:00:00 Height 2011-01-31 149.86 cm [facility] 22:02:00 Weight 2011-01-31 [facility] 22:02:00 Systolic (mm Hg) 2011-01-31 [facility] rmann 12:46:00 Diastolic (mm Hg) 2011-01-31 [facility] 12:46:00 Peripheral Pulse 2011-01-31 [facility] rmann Rate 12:46:00 Respitory Rate 2011-01-31 [facility] 12:46:00 Temperature Oral 2011-01-31 98.5 F [facility] rmann (F) 12:46:00 Peripheral Pulse 2011-01-31 [facility] r[facility] Rate 11:21:00 Systolic (mm Hg) 2011-01-31 [facility] r[facility] 11:21:00 Diastolic (mm Hg) 2011-01-31 [facility] ermann 11:21:00 Diastolic (mm Hg) 2011-01-31 [facility] ermann 10:58:00 Peripheral Pulse 2011-01-31 [facility] r[facility] Rate 10:58:00 Systolic (mm Hg) 2011-01-31 [facility] 10:58:00 Respitory Rate 2011-01-31 [facility] 10:35:00 Temperature Oral 2011-01-31 97.8 F [facility] rmann (F) 10:35:00 Respitory Rate 2011-01-31 [facility] 08:28:00 Temperature Oral 2011-01-31 98.1 F [facility] (F) 08:28:00 Height 2011-01-23 149.86 cm [facility] 09:37:00 Weight 2011-01-23 [facility] 09:37:00 Procedures Procedure Date / Time Performing Source Performed Clinician REPORT OF PROCEDURE - 2020-02-22 Provider, Jane [facility] - ENDOSCOPY SCAN 17:13:37 Scanning [facility] POCT-GLUCOSE METER 2020-02-[address] [facility] - 13:09:00 [facility] POCT-GLUCOSE METER 2020-02-[address] [facility] - 08:38:00 [facility] CBC W/PLT COUNT & AUTO 2020-02-[address] [facility] - DIFFERENTIAL 04:38:00 [facility] POCT-GLUCOSE METER 2020-02-[address] [facility] - 21:04:00 [facility] POCT-GLUCOSE METER 2020-02-14 Philippe, Shirley Khan [facility] - 18:04:00 [facility] URINE CULTURE 2020-02-[address] [facility] - 15:04:00 [facility] URINALYSIS W/ REFLEX URINE 2020-02-[address] [facility] - CULTURE 15:04:00 [facility] POCT-GLUCOSE METER 2020-02-14 Philippe, Shirley Khan [facility] - 12:17:00 [facility] POCT-GLUCOSE METER 2020-02-14 Philippe, Shirley Khan [facility] - 11:51:00 [facility] XR ESOPH SWALLOW FUNCTION 2020-02-[address] [facility] - W/CINE VIDEO 10:24:00 [facility] CBC W/PLT COUNT & AUTO 2020-02-[address] [facility] - DIFFERENTIAL 04:24:00 [facility] POCT-GLUCOSE METER 2020-02-13 Philippe, Shirley Khan [facility] - 22:29:00 [facility] POCT-GLUCOSE METER 2020-02-13 Philippe, Shirley Khan [facility] - 17:26:00 [facility] XR CHEST 2 VIEWS 2020-02-13 Philippe, Shirley Khan [facility] - 12:01:00 [facility] POCT-GLUCOSE METER 2020-02-13 Philippe, [facility] 08:03[facility]00 [facility] POCT-GLUCOSE METER 2020-02-12 Paez, Shirley Khan [facility] - 22:59:00 [facility] POCT-GLUCOSE METER 2020-02-12 Paez, Shirley [facility] - 17:20:00 [facility] XR CHEST 1 VIEW 2020-02-12 Philippe, Shirley Khan [facility] - PORTABLE/BEDSIDE 12:43:00 [facility] POCT-GLUCOSE METER 2020-02-12 Philippe, [facility] 12[facility] TSH/FREE T4 IF INDICATED 2020-02-12 [facility] - 10:54:00 [facility] VITAMIN B12 2020-02-[address] [facility] - 10:54:00 [facility] LACTATE DEHYDROGENASE (LDH) 2020-02-[address] [facility] - 10:54:00 [facility] CREATINE KINASE (CK) 2020-02-[address] [facility] - 10:54:00 [facility] COMPREHENSIVE METABOLIC PANEL 2020-02-[address] [facility] - 10:54:00 [facility] POCT-GLUCOSE METER 2020-02-[address] [facility] - 09:36:00 [facility] CBC W/PLT COUNT & AUTO 2020-02-12 Francisco Leonardo [facility] DI[facility]ENTIAL 08:49:00 [facility] SARS-COV2/RT-PCR (HS & REF 2020-02-[address] [facility] - LABS) 03:39:00 [facility] Transcatheter retrieval, 2019-02-21 Feli Azul percutaneous, of 20:58:00 intravascular foreign body (eg, fractured venous or arterial catheter), includes radiological supervision and interpretation, and imaging guidance (ultrasound or fluoroscopy), when performed [place] Insertion 2019-01-28 [facility] 00:00:00 Physicians XRAY Chest 2 views [id number] 2018-11-12 [facility] 00:00:00 Physicians IVIG Infusion Therapy 2018-11-11 [facility] 00:00:00 Physicians [QLH] CBC (INCLUDES DIFF/PLT) 2018[facility]11[facility]11 [facility] [QLH] CMP W/EGFR 2018-11-11 [facility] exas 00:00:00 Physicians MA Bone Density Scan [id number] 2018-10-14 [facility] 00:00:00 Physicians Selective catheter placement, 2018-08-19 Me luis fernando Azul vertebral artery, unilateral, 13:02:00 with angiography of the ipsilateral vertebral circulation and all associated radiological supervision and interpretation, includes angiography of the cervicocerebral arch, when performed Insertion or Replacement of 2011-01-26 Kalia Azul Skull Tongs or Halo Traction 05:00:00 Device Other Excision or Destruction 2011-01-26 Me luis fernando Azul of Lesion or Tissue of Brain 05:00:00 Excision of Lesion or Tissue 2011-01-24 Mem orial Jorge Alberto of Cerebral Meninges 05:00:00 Intracranial Pressure 2011-01-24 [facility] ermann Monitoring 05:00:00 Transfusion of Packed Cells 2011-01-24 Kalia rial [facility] 05:00:00 [facility] of [employer] Ventriculoperitoneal shunt Physi cians creation Cervical laminectomy [facility] section [facility] n Resection [facility] Shunt construction [facility] Tonsillectomy [facility] Plan of Care Planned Activity Planned Date Details Comments Source Future Scheduled 2027-02-[address] [facility] 00:00:00 [facility] colon (procedure) [code = 723816199] Future Scheduled 2020-01-[address] [facility] - Test 00:00:00 (#1) [code = Medical Center INFLUENZA VACCINE (#1)] Diagnostic Test 2018-11-12 XRAY Chest 2 views [facility] Pending 00:00:00 [id number] [code = 11160] Physici ans Future Scheduled 2014-06-[address] [facility] Test 00:00:00 WELLNESS (YEAR 2 or Medical Center FIRST YEAR if no IPPE) [code = MEDICARE ANNUAL WELLNESS (YEAR 2 or FIRST YEAR if no IPPE)] Future Scheduled 2012-01-10 PNEUMOCOCCAL 65+ YRS [facility] - Test 00:00:00 (1 of 1 - Medical Center [id number] PCV13) [code = PNEUMOCOCCAL 65+ YRS (1 of 1 - PBKT56_Zygkveb PCV13)] Future Scheduled [address] [facility] Test 00:00:00 [facility] breast (procedure) [code = 463302926] Encounters Start End Encounter Admission Attending Care Care Encounter Source Date/Time Date/Time Type Type Clinicians Facility Department ID 2020-02-15 Inpatient U [facility] [id number] [facility] H 16:11:00 2019-02-05 Inpatient U [facility] MED [id number] MH H 08:54:00 2018-12-24 Inpatient U [facility] [id number] [facility] H 18:32:00 2018-08-16 Inpatient E [facility] [id number] [facility] H 23:35:00 2020-02-15 2020-02-27 Outpatient Lamont, [facility] [id number] 16:11:00 14:07:00 Clovis Matute 2020-02-15 2020-02-15 Outpatient Hellen, [facility] [id number] 16:11:00 16:11:00 David Jacobo 60 2020-01-05 2020-01-05 Out[facility] Fern[facility] [id number] 11:40:00 23:59:00 Andre Kaur 05 2020-01-05 2020-01-05 NIRALI Olson UTP [id number] Univers 10:00:00 10:00:00 t; Cheko CORRIGAN [place], [place] Cheko CORRIGAN Physi ci ans 2019-11-22 2019-12-20 Outpatient Nikunj [facility] [id number] 05:06:00 15:30:00 Arsha 77 Estella 2019-11-22 2019-12-20 Outpatient Nikunj [facility] [id number] 05:06:00 15:30:00 Arsha 75 Estella 2019-11-29 2019-11-29 NIRALI Olson [facility] [id number] Univers 11:00:00 11:00:00 t; Cheko CORRIGAN [place], [place] Cheko CORRIGAN Physi ci ans 2019-11-22 2019-11-22 Outpatient Nikunj [facility] [id number] 05:06:00 05:06:00 Arscadence Soria 2019-11-22 2019-11-22 Outpatient Osvaldo [facility] [id number] 05:06:00 05:06:00 Saleem Perry 2019-11-22 2019-11-22 Outpatient Osvaldo [facility] [id number] 05:06:00 05:06:00 Saleem Perry 2019-11-22 2019-11-22 Inpatient E [facility] MED [id number] [facility] 12:06:00 03:48:00 2019-05-05 2019-05-05 NIRALI Olson [facility] - [id number] [facility] 11:30:00 11:30:00 t[facility] Dougie CORRIGAN M.D. [facility] ans 2019-02-05 2019-03-04 Outpatient Hernán [facility] [id number] 08:54:00 18:18:00 Jai Perez 2019-01-25 2019-01-25 Appointrick DRAKE [facility] Neurology - [id number] [facility] 08:00:00 08:00:00 t; Cheko CORRIGAN [facility] Dougie CORRIGAN M.D. [facility] ans 2018-12-24 2019-01-10 Outpatient Lyric [facility] [id number] 18:32:00 15:53:00 Reji 2018-11-29 2018-11-29 Outpatient Stan [facility] [id number] 07:33:57 12:20:00 Abel Vizcaino 2018-11-29 2018-11-29 Emergency E [facility] [id number] [facility] 07:33:00 07:33:00 2018-11-18 2018-11-18 [id number] 09:50:00 23:59:00 Savannah 2018-11-11 2018-11-11 NIRALI Olson Neurology - [id number] [facility] 11:00:00 11:00:00 t; [facility] Dougie CORRIGAN M.D. [facility] ans 2018-10-21 2018-10-21 Outpatient Noelle OIP OIP [id number] 10:21:00 23:59:00 [place] 2018-10-14 2018-10-14 Jacob DRAKE [facility] Neurology [id number] [facility] 11:30:00 11:30:00 t; Cheko CORRIGAN [place] Cheko CORRIGAN Physi ci ans 2018-09-21 2018-09-23 Outpatient Hellen [facility] [id number] 18:06:00 16:20:00 David Jacobo 2018-09-21 2018-09-23 Outpatient Hellen [facility] [id number] 18:06:00 16:20:00 David Ali 13 2018-09-21 2018-09-21 Outpatient U [facility] [id number] [facility] 18:06:00 18:06:00 2018-09-21 2018-09-[address] [facility] [id number] Univers 10:30:00 10:30:00 t; Cheko CORRIGAN [facility] [place] DRAKE M.D. [facility] ans 2018-09-12 2018-09-20 Outpatient Zbigniew [facility] [id number] 15:01:00 16:23:00 Sean 01 Luis 2018-09-12 2018-09-10 Inpatient U [facility] [id number] [facility] 15:01:00 00:20:00 2018-09-09 2018-09-09 Outpatient Milana, [facility] [id number] 11:57:00 22:17:00 Sadi N 00 2018-09-09 2018-09-08 Inpatient U [facility] [id number] Mem[facility] 11:57:00 09:51:00 l Jorge Alberto [facility] 2018-08-16 2018-08-19 Outpatient Zbigniew [facility] [id number] 15:03:00 21:09:00 Sean 05 Luis 2018-08-16 2018-08-17 Outpatient MHMISCHER MHMISCHER [id number] 10:11:00 23:59:59 00 Results Test Description Test Time Test Comments Results Result Comments Source CHEM PANEL 2020-02-27 2.2 [facility] 05:52:00 CHEM PANEL 2020-02-27 3.3 [facility] 05:52:00 CHEM PANEL 2020-02-27 176 [facility] 05:52:00 CHEM PANEL 2020-02-27 20 [facility] 05:52:00 CHEM PANEL 2020-02-27 0.96 [facility] 05:52:00 CHEM PANEL 2020-02-27 141 [facility] 05:52:00 CHEM PANEL 2020-02-27 4.3 [facility] 05:52:00 CHEM PANEL 2020-02-27 111 [facility] 05:52:00 CHEM PANEL 2020-02-27 27 [facility] 05:52:00 CHEM PANEL 2020-02-27 7.3 [facility] 05:52:00 CHEM PANEL 2020-02-27 8.7 [facility] 05:52:00 CHEM PANEL 2020-02-27 59 [facility] 05:52:00 HEMATOLOGY 2020-02-27 19.0 [facility] 05:52:00 HEMATOLOGY 2020-02-27 3.82 [facility] 05:52:00 HEMATOLOGY 2020-02-27 9.2 [facility] 05:52:00 HEMATOLOGY 2020-02-27 29.8 [facility] 05:52:00 HEMATOLOGY 2020-02-27 78.2 [facility] 05:52:00 HEMATOLOGY 2020-02-27 05:52:00 Test Item Value Reference Range Interpretation Comme nts MCH (test code = MCH) 24.1 pg 27.0-31.0 [facility] KufccxuJPBKWAPQOA5415-46-86 05:52:0030.9[facility] HermannHEMATOLOGY 2020-02-27 05:52:0020.2[facility] RzlyjjkNOGFANDJLQ6458-32-97 05:52:09418Qwqedaek ZfjdxmyZNNRRUOREQ6280-42-06 05:52:009.5[facility] BrkrxnoHXUEDUAIHO6633-27-58 05:52:0078.2[facility] ZvxgnjkXHFMGRYNRB8842-68-79 05:52:0015.4[facility] TRXGHVYUPB5510-64-91 05:52:005.7[facility] PinftqyCGEEYRCQCK2663-32-64 05:52:000.3 [facility] YminfuhWRIWVCDSOV6164-93-85 05:52:000.4[facility] HermannHEMATOLOGY 2020-02-27 05:52:0014.9[facility] YbnevvvIGLDPOBURG2424-20-21 05:52:002.9[facility] KrzestsQQOZYCXQQG8588-52-97 05:52:001.1[facility] XfpchfyUIUKUXIIRE0962-96-12 05:52:000.1[facility] MucvmcdBRWTANLHSW4045-04-60 05:52:000.1[facility] KVDGIZVFOP2378-26-55 05:52:001+ *ABN*(02/27/20 12:52 AM)[facility] PARATHYROID VGGUPJM9017-17-38 05:52:001.22[facility] HermannPARATHYROID PROFILE 2020-02-27 05:52:001.20[facility] HermannCHEM GIFMN1378-85-63 06:07:002.1[facility] HermannCHEM QBEZP8364-46-88 06:07:26456Qnuyqyvk HermannCHEM AJAFN5443-95-71 06:07:0014[facility] HermannCHEM PLFGX6329-88-20 06:07:000.74[facility] HermannCHEM WSKKQ1316-27-50 06:07:92735Wqtjqjog HermannCHEM UKCMS9643-82-86 06:07:004.3 [facility] HermannCHEM JLXLQ0477-97-51 06:07:06684Sisysrmo HermannCHEM PANEL 2020-02-26 06:07:0023Mem[facility] HermannCHEM KURYO6578-40-57 06:07:008.7[facility] HermannCHEM SNNYD3325-80-28 06:07:0010.3[facility] HermannCHEM OUWBP9057-98-58 06:07:0080[facility] HermannCHEM PYOMF3360-44-89 06:07:002.7[facility] DEVQKEUFJU8202-82-33 06:07:0084.4[facility] XkyggsyTHAKBIBHZM0825-50-25 06:07:00 10.8[facility] PudoymeYAGLIQDQPQ8042-12-49 06:07:004.4[facility] HermannHEMATOLOGY 2020-02-26 06:07:000.1[facility] IjrnoqiLOGGLNZLWO7016-21-98 06:07:000.3[facility] LixqwwmLUCTFKTUZM6199-57-59 06:07:0014.3[facility] PobqwtlJLAETYONMN9140-84-83 06:07:001.8[facility] SccswuaVFXGDUZPBV7861-68-28 06:07:000.7[facility] XIXXSGRHIC6086-85-00 06:07:001+ *ABN*(02/26/20 1:07 AM)[facility] HermannHEMATOLOGY 2020-02-26 06:07:0016.9[facility] EsvquvoARDPMCMHRP4678-45-91 06:07:003.72[facility] EfnixwvJNBCGEQQGE4554-70-16 06:07:009.0[facility] UvogsuyNEZQALNBII2128-12-91 06:07:0029.3[facility] LdqvaecZUAHSWGUEX2407-86-94 06:07:0078.8[facility] OHCSDHFOGM0916-44-50 06:07:00 Test Item Value Reference Range Interpretation Comments MCH (test code = MCH) 24.1 pg 27.0-31.0 Memorial MdqqqlmRKYFFSKUDB1806-55-20 06:07:0030.6[facility] HermannHEMATOLOGY 2020-02-26 06:07:0019.6[facility] YksmmkjJJVYAUAMIY6226-05-14 06:07:0098[facility] FnowpdrPQAZNZPUAK1975-64-49 06:07:0010.1[facility] HermannPARATHYROID PROFILE 2020-02-26 06:07:001.18[facility] HermannPARATHYROID JGTLBJK1193-21-76 06:07:00 1.17[facility] HermannCHEM JHJYO5760-28-68 08:30:29137Sinbujrp HermannCHEM PANEL 2020-02-25 08:30:0016Mem[facility] HermannCHEM KNRBY1722-74-69 08:30:000.75[facility] HermannCHEM BUPUJ6710-92-44 08:30:04957Xqzdizwe HermannCHEM KMGKJ3652-67-14 08:30:004.emorial HermannCHEM HUSEF0229-24-00 08:30:64132Vliankyy HermannCHEM TGKXN2948-00-74 08:30:0024Mem[facility] HermannCHEM YRNWL5393-61-57 08:30:009.0 [facility] HermannCHEM EYPZK9655-51-08 08:30:0012.1[facility] HermannCHEM PANEL 2020-02-25 08:30:0080[facility] HermannCHEM NEPQD8910-22-26 08:30:001.9[facility] HermannCHEM VFWVW8658-80-71 08:30:002.6[facility] KgdpnhjGHXLQPTJNY4063-43-49 08:30:61790Uwhgdwzl RdhlhldYTBTYFKCVC7927-79-04 08:30:0084.7[facility] LKBKOWQTHG3624-85-63 08:30:0010.5[facility] RhbmgidMJZRXTNZAS8492-24-21 08:30:00 4.5[facility] QqpaiwaJWDLZKLJEM0243-98-51 08:30:000.1[facility] HermannHEMATOLOGY 2020-02-25 08:30:000.2[facility] FzsvwhqPTFEWVVZLT4373-81-03 08:30:0015.2[facility] KfxrrzcDNQHNBYKSK7598-04-98 08:30:001.9[facility] VdbjgtkFTLUAUTLTV9241-21-97 08:30:000.8[facility] FaeyvifQQNZBCUJGU2481-50-85 08:30:001+ *ABN*(02/25/20 3:30 AM)[facility] ZxixkcqEIWNBYENAG5346-98-81 08:30:0017.9[facility] HermannHEMATOLOGY 2020-02-25 08:30:003.96[facility] CsninpvFAUSNWZWSI9100-77-71 08:30:009.6[facility] ButmkrqGIYLTMNSMN9990-78-06 08:30:0031.0[facility] TmqfzchYWOYJFCZAF7255-28-96 08:30:0078.3[facility] AklermeLKBSPEKKIH8687-19-05 08:30:00 Test Item Value Reference Range Interpretation Comments MCH (test code = MCH) 24.3 pg 27.0-31.0 Memorial HnjtviwYIYMZVMNWP5409-03-48 08:30:0031.0[facility] HermannHEMATOLOGY 2020-02-25 08:30:0019.5[facility] DcfrrepSJSHOLQQVR3691-43-75 08:30:0094[facility] IlyqnocHBXDUMGFYM1106-67-41 08:30:009.6[facility] HermannPARATHYROID PROFILE 2020-02-25 08:30:001.17[facility] HermannPARATHYROID IUIPNNR8410-58-86 08:30:00 1.17[facility] UsohpygGOPUHUGGAD6909-66-51 21:43:00Negative 5(02/24/20 4:43 PM) Memorial KpqibvqDMFJMOKCEV7517-88-21 21:43:00 Test Item Value Reference Range Interpretation Comments Pat Od Value (test code = Pat Od 0.064 1 Value) Memorial CfkeamjWDOYVGOKEV2321-24-71 21:43:00 Test Item Value Reference Range Interpretation Comments Pos CO Value (test code = Pos CO 0.400 1 Value) Memorial BfxxfqcTOUFPOCLOU3302-29-05 06:06:000.1[facility] HermannHEMATOLOGY 2020-02-23 06:25:21893Ljwohyhl HermannCARDIAC CAXFQTP6139-79-08 15:43:0073 Memorial IzasqicBJOAITZCFW5094-85-88 15:43:001+ *ABN*(02/22/20 10:43 AM)[facility] IyqyuzsJSMWQAJYHL7629-17-69 15:43:001+ (02/22/20 10:43 AM)[facility] IJWDDMAIOF3245-19-67 15:43:000.2[facility] OtouvquLEOXTQEVUY0794-99-52 15:43:000.2 [facility] HermannCHEM XPCAV6910-70-66 08:57:001.7[facility] HermannHEMATOLOGY 2020-02-22 08:57:000.1[facility] HermannCHEM YWWJT4537-48-27 04:33:003.8[facility] HermannCEFTRIAXONE:SUSC:PT:ISOLATE:ORDQN:XCG4787-88-47 04:08:00Enterobacter cloacaeMemorial HermannURINE AND RVTMQ0042-09-92 02:52:00Light Yellow *NA*(02/21/20 9:52 PM)[facility]annURINE AND PDUJE7058-12-56 02:52:00Slight *ABN*(02/21/20 9:52 PM)[facility]ann[facility] AND XNRZK1902-28-14 02:52:00 Test Item Value Reference Range Interpretation Comments UA Spec Grav (test code = UA Spec 1.015 1 Grav) [facility]ann[facility] AND MXWSA8701-64-45 02:52:00 Test Item Value Reference Range Interpretation Comments UA pH (test code = UA pH) 5.0 1 5.0-8.0 [facility] TMGCI0078-86-43 02:52:00Negative *NA*(02/21/20 9:52 PM) [facility] XXLLU0300-56-95 02:52:00Negative (02/21/20 9:52 PM) [facility] TWWSX1839-20-48 02:52:00<1.0[facility] AND OYSAC3028-78-72 02:52:00Positive *ABN*(02/21/20 9:52 PM)[facility] AND YZIFE6907-64-06 02:52:00Trace *ABN*(02/21/20 9:52 PM)[facility] HKIFV9748-79-48 02:52:0016[facility]annUR[facility] AND JRIAY1866-60-43 02:52:00 2[facility]annUR[facility] AND DWHYZ8163-78-94 02:52:003[facility] HermannCHEM PANEL 2020-02-22 00:49:002.9[facility] QurfdygDDBQHWJGSF7342-60-74 08:21:40715Hwzmiucx GqreflyIDQFYEMTKN2994-16-96 08:21:00 Test Item Value Reference Range Interpretation Comments PT (test code = PT) 14.2 s 12.0-14.7 Memorial WjwswxzPXZCZBJKEG1509-32-37 08:21:00 Test Item Value Reference Range Interpretation Comments INR (test code = INR) 1.10 1 0.85-1.17 Memorial YcjcocqNGZOATZMWO8624-79-70 08:21:00 Test Item Value Reference Range Interpretation Comments PTT (test code = PTT) 43.0 s 22.9-35.8 Memorial UeazovkMRWSWAIMAV5476-28-13 08:21:24982Ydwhaivm HermannBLOOD BANK NRWYKAN2016-95-09 14:31:00Negative (02/19/20 9:31 AM)[facility] HermannCHEM PANEL 2020-02-19 14:22:75364Pvybxzil HermannCHEM TBLSP7454-98-41 14:22:0015[facility] HermannCHEM QGSAG4863-24-92 14:22:000.67[facility] HermannCHEM QAIIY5566-70-34 14:22:77444Nevemxtw HermannCHEM XLWLJ4492-96-36 14:22:003.6[facility] HermannCHEM HCFDH6015-29-26 14:22:82382Iqqwvixl HermannCHEM GCDMM8669-93-76 14:22:0029 [facility]CHE[facility] LSZLI8627-01-31 14:22:008.4[facility] HermannCHEM PANEL 2020-02-19 14:22:008.6[facility] HermannCHEM ZIGHF0530-37-86 14:22:0087[facility] HermannCHEM DSIOV2832-17-28 14:22:001.8[facility] HermannCHEM JBRCR7999-78-21 14:22:002.5[facility] HospitalSuaojldBGAZGJGKCR5891-27-77 14:22:00 Test Item Value Reference Range Interpretation Comments PT (test code = PT) 14.2 s 12.0-14.7 [facility] CampusIvfjizdECCNMUUKDF9684-74-48 14:22:00 Test Item Value Reference Range Interpretation Comments INR (test code = INR) 1.10 1 0.85-1.17 [facility] CampusCokeovpDBUERGCIQK2738-30-86 14:22:00 Test Item Value Reference Range Interpretation Comments PTT (test code = PTT) 37.8 s 22.9-35.8 [facility] CampusCwrncqtSJXBYAJAJT8939-13-26 14:22:08799WssjmfzlWilson N. Jones Regional [facility] CenterHEMG[facility] 2020-02-19 14:22:000.96[facility] CampusBzaarhsBJCQAMSQRS9944-62-79 14:22:00 Test Item Value Reference Range Interpretation Comments Thrombin Time (test code = Thrombin 25.6 s 15.0-21.2 Time) [facility] CampusEscxqtoHJNAZKBIES0032-37-10 14:22:62957ZulazrjjWilson N. Jones Regional Medical CenterHEMATOLOGY 2020-02-19 14:22:00 Test Item Value Reference Range Interpretation Comments PT (test code = PT) 14.4 s 12.0-14.7 [facility] CampusYymggtaHUJLQSBNWO9789-87-44 14:22:00 Test Item Value Reference Range Interpretation Comments INR (test code = INR) 1.11 1 0.85-1.17 [facility] CampusIkskxyfIVMCDRFURV4217-73-68 14:22:00 Test Item Value Reference Range Interpretation Comments PTT (test code = PTT) 37.1 s 22.9-35.8 [facility] AbxzrdyJMFRQXJWRN0047-90-45 14:22:0018.9[facility] HermannHEMATOLOGY 2020-02-19 14:22:004.69[facility] YwszjuxPATWCFLINX6144-70-17 14:22:0011.2[facility] IfjpocqLHVFUVBROS1815-88-65 14:22:0037.1[facility] LftaogmIBCIVCYMLX4447-45-70 14:22:0079.1[facility] VlmdhmmLFYMYGJCFK6301-26-65 14:22:00 Test Item Value Reference Range Interpretation Comments MCH (test code = MCH) 23.8 pg 27.0-31.0 [facility] EntedbtDHJECKKCQI9378-14-18 14:22:0030.1[facility] HermannHEMATOLOGY 2020-02-19 14:22:0018.7[facility] KzmbohaPFSQKFAUDA7547-04-81 14:22:91658Pjrahuzi XmqyrxmZCYMZNGVUF8090-33-20 14:22:009.7[facility] QjvinhsDZVIZKTAPG3561-46-51 14:22:0061.0[facility] WuccwhrOZUNIPJCHG2564-34-21 14:22:0030.5[facility] ZZTPMSUQZG1828-27-00 14:22:007.1[facility] LqbcbtpGBKWVGOOZB2165-31-16 14:22:000.7 [facility] RypxyzvAHOFRXMXZR7299-00-75 14:22:000.7[facility] HermannHEMATOLOGY 2020-02-19 14:22:0011.5[facility] NdulvvbWNUCCLTBDZ8476-43-48 14:22:005.8[facility] LytxpqwDXKBRVZPBJ1181-35-59 14:22:001.3[facility] GbsiqjgIZBVPQWLRM8456-74-82 14:22:000.1[facility] LixfkyiDBLSEPQZFM6019-61-51 14:22:000.1[facility] PARATHYROID WIVEWUD8551-10-42 14:22:001.11[facility] HermannPARATHYROID PROFILE 2020-02-19 14:22:001.12[facility] HermannCHEM PWRZN8145-08-19 09:08:003.5[facility] HermannCHEM QQAIB7907-24-93 09:08:001.6[facility] HermannCHEM WKEQZ5821-44-04 09:08:17760Hzexyncm HermannCHEM OAILH5515-60-67 09:08:0012[facility]annCHEM GPXVP0921-51-05 09:08:000.67[facility]annCHE[facility] NRFVD3658-97-26 09:08:25658 [facility]annCHE[facility] GXZGO3109-52-89 09:08:003.3[facility]annCHEM PANEL 2020-02-18 09:08:36391Odvcezcj HermannCHEM WNRBM7225-68-86 09:08:0028[facility]annCHEM FFFPT6160-78-22 09:08:008.7[facility]annCHEM QLLHN4358-63-01 09:08:0010.3[facility]annCHEM JRCVJ9966-55-19 09:08:0087[facility] KQCFBNLDVQ0797-85-39 09:08:00 Test Item Value Reference Range Interpretation Comments PT (test code = PT) 17.5 s 12.0-14.7 [facility] ZvuduuxSGAUVCXQTP7988-85-06 09:08:00 Test Item Value Reference Range Interpretation Comments INR (test code = INR) 1.42 1 0.85-1.17 [facility] DidwmocKKJNUOLVGH0240-25-65 09:08:00 Test Item Value Reference Range Interpretation Comments PTT (test code = PTT) 82.9 s 22.9-35.8 [facility] KiotceaRFOEHZPFYH3620-79-32 09:08:000.68[facility]annHEMATOLOGY 2020-02-18 09:08:37693Wrtwselt DwnrkurQGBGVBBGAG7145-96-20 09:08:0016.3[facility] GbaenfvTDIQMNOXLS3642-34-90 09:08:004.72[facility] HyminviVWBJCTXWOV1400-05-43 09:08:0011.4[facility] PhdqqljJYFZHIOOMF1838-56-86 09:08:0037.0[facility] AJOBUDNUGH8396-97-69 09:08:0078.4[facility] DhtuehfXDUZFXIUYF4467-60-36 09:08:00 Test Item Value Reference Range Interpretation Comments MCH (test code = MCH) 24.1 pg 27.0-31.0 [facility] PymstpoBTMHIHWOKK0240-33-18 09:08:0030.7[facility]annHEMATOLOGY 2020-02-18 09:08:0018.3[facility] EosvwfmLOEBMZIRZX7101-49-52 09:08:52716Klwbgjtr KicoafsCVKOEVWCPJ6975-80-04 09:08:009.7[facility] FnhtfgzGYIRVZILXI9621-57-43 09:08:0066.2[facility] XjknrpnLAZKQOLEJF3476-10-01 09:08:0023.2[facility] OZTMPVRYOK1135-70-45 09:08:009.3[facility] PqvnjrhORSFQPEIJQ2729-15-29 09:08:000.8 [facility] ZjbvhrhLYQVVZPRDF5964-01-10 09:08:000.5[facility]annHEMATOLOGY 2020-02-18 09:08:0010.8[facility] XyvxxddMMUWTCPNVF3892-90-58 09:08:003.8[facility] UejluirKHKZSUPALU7278-38-90 09:08:001.5[facility] CoeriyjKSLRZRYYVZ6011-85-60 09:08:000.1[facility] JzitydiTEZLHJPAZF0394-15-17 09:08:000.1[facility] RCCBZPHQYZ4757-98-53 09:08:001+ *ABN*(02/18/20 4:08 AM)[facility] PARATHYROID DONXXZE0407-35-46 09:08:001.13[facility]annPARATHYROID PROFILE 2020-02-18 09:08:001.12[facility] RwjjxbtVDESMBDPGJ8369-60-31 17:25:00Not Detected (02/17/20 12:25 PM)[facility] MWCJFXA1733-52-02 17:10:00Result Note 4(02/17/20 12:10 PM)[facility] RPTGTFN6995-55-38 17:10:00 Positive (02/17/20 12:10 PM)[facility]annCARDIAC IHMRPUK1758-39-10 17:10:0025 [facility]annCHEM WMNGG3130-57-02 17:10:003.0[facility]annCHEM PANEL 2020-02-17 17:10:25123Ysiieyuo HermannCHEM WHPZO9629-91-53 17:10:0011[facility]annCHEM ZUJFZ9178-31-35 17:10:000.68[facility]annCHEM WXFEQ4349-06-30 17:10:97124Wnttrthj HermannCHEM FTXTV1283-66-50 17:10:003.4[facility]annCHEM THLDO0283-42-16 17:10:53333Kizspzpm HermannCHEM PXLHS6193-11-84 17:10:0031 [facility]annCHEM GEZAT8217-54-03 17:10:008.4[facility]annCHEM PANEL 2020-02-17 17:10:006.4[facility] HermannCHEM MCLAD7654-84-34 17:10:0087[facility]annCHEM YBKKC9813-07-68 17:10:00<0.05[facility]annCHEM YLKZG3505-03-57 17:10:001.6[facility] SknouezYPYIDMHBLE6613-16-39 17:10:0016.0[facility] OFMOBFEDWQ6390-97-77 17:10:005.23[facility] MouicmxOOMIQLKSRI6890-84-86 17:10:00 12.7[facility] ItcyvbqWGLIHJDTDJ2018-81-08 17:10:0041.4[facility] HermannHEMATOLOGY 2020-02-17 17:10:0079.1[facility] UhfqnnnQZHBHGETJC3812-18-21 17:10:00 Test Item Value Reference Range Interpretation Comments MCH (test code = MCH) 24.4 pg 27.0-31.0 [facility] OkymyqqVVEUMZWYWL3220-42-36 17:10:0030.8[facility] HermannHEMATOLOGY 2020-02-17 17:10:0018.3[facility] BkhpsyqCLIGLBWOBV5289-25-05 17:10:86155Wabjilfv WsggohyPFWIWTGEEL0326-83-41 17:10:0010.1[facility] FeasiurIIMEXIJXUQ1730-88-34 17:10:0084.7[facility] EbgtcnuWMJFCRCXDN3104-86-17 17:10:009.3[facility] RELJFUFGBU2631-02-16 17:10:005.0[facility] RbccowuPOSJNGSOYO4083-08-28 17:10:000.5 [facility] SilxdloUMPYBHMLAY6641-17-60 17:10:000.5[facility] HermannHEMATOLOGY 2020-02-17 17:10:0013.6[facility] KwgwmruVKSLCIBRSI7727-92-98 17:10:001.5[facility] EjjkbwgTHMVUTQXVM2366-30-25 17:10:000.8[facility] ZrlxvpzKFGDQIWICT0376-11-91 17:10:000.1[facility] QpawcinYPYKLG3891-61-39 17:10:81880Rzlqvuzc HermannLIPIDS 2020-02-17 17:10:02810Lkgxgbnm LbgbrdzGINBWR0319-31-45 17:10:0054[facility] NdqpsdrCIICHE8260-72-25 17:10:00 Test Item Value Reference Range Interpretation Comments CHD Risk (test code = CHD Risk) 2.85 1 3.90-5.80 [facility] LqgydxkKFTEJO5321-45-81 17:10:0069[facility] RxidfndECIKRN9268-56-48 17:10:00 Test Item Value Reference Range Interpretation Comments VLDL (test code = VLDL) 31 1 [facility] AND MPRZT0081-77-70 03:29:00Yellow *NA*(02/15/20 10:29 PM) [facility] GQFAI3056-57-93 03:29:00Marked *ABN*(02/15/20 10:29 PM) [facility] UTXBM6497-05-87 03:29:00 Test Item Value Reference Range Interpretation Comments UA Spec Grav (test code = UA Spec 1.015 1 Grav) [facility] UDVCG1411-30-05 03:29:00 Test Item Value Reference Range Interpretation Comments UA pH (test code = UA pH) 7.0 1 5.0-8.0 [facility] VPIRT4438-78-91 03:29:00Negative *NA*(02/15/20 10:29 PM)[facility] QJRTN1874-40-89 03:29:00Negative (02/15/20 10:29 PM) [facility] FABSM6633-64-41 03:29:00<1.0[facility] AND KTBGJ8355-34-39 03:29:00Negative (02/15/20 10:29 PM)[facility] UVSMQ1310-67-86 03:29:00Negative (02/15/20 10:29 PM)[facility] VQHZZ0768-63-27 03:29:001[facility] CSHNQ1757-88-16 03:29:001 [facility] RBPTZ5934-67-93 03:29:003[facility] HermannCHEM PANEL 2020-02-16 02:49:005.8[facility]annCHEM DJVZV8495-17-66 02:49:002.4[facility]annCHEM BSRDH9595-03-59 02:49:0026[facility]annCHEM ZVCIV7989-78-33 02:49:0016[facility]annCHEM ANHZY6900-19-14 02:49:52899Txdlixuh HermannCHEM TIQXF3675-87-62 02:49:000.3[facility] HermannCHEM VMORW7975-59-86 02:49:00 Test Item Value Reference Range Interpretation Comments B/C Ratio (test code = B/C Ratio) 25 1 6-25 [facility]annCHE[facility] JZCOC7306-86-13 02:49:003.4[facility] HermannCHEM PANEL 2020-02-16 02:49:00 Test Item Value Reference Range Interpretation Comments A/G Ratio (test code = A/G Ratio) 0.7 1 0.7-1.6 [facility] fcpki7724-24-53 13:34:00 Test Item Value Reference Range Interpretation Comments POC-Glucose Meter (test 101 mg/dL 70-110 : TE STED AT [facility] code = 1538) [address] [facility], 770 30: Teller Vault/Techni ras ID = [id number] for LENNOX OSBORN Lab Interpretation (test Normal code = 81324-9) [facility] [id number] 13:34:00 Test Item Value Reference Range Interpretation Comments POC-GLUCOSE METER 101 mg/dL 70-110 : TESTED A T [facility] 6720 (BEAKER) (test code = KLEVER Rogers [facility], 1538) [address]: Teller Vault/Techni ras ID = [id number] for LENNOX RAMOS Urine cpfiemo1386-29-57 10:36:00 Test Item Value Reference Range Interpretation Comments Result (test code = See comment 6463-4) ZIA (test code = >100,000 col/mL enteric ZIA) organisms of >3 types. No further workup performed. Multiple organisms suggestive of colonization or contamination. Repeat collection recommended. [facility] [id number] 08:50:00 Test Item Value Reference Range Interpretation Comments POC-GLUCOSE METER 100 mg/dL 70-110 : TESTED A T [facility] 6720 (BEAKER) (test code = BARBARADC Sue [facility], 1538) [address]: Teller Vault/Techni ras ID = [id number] for LENNOX RAMOS POCT-GLUCOSE [id number] 06:33:00 Test Item Value Reference Range Interpretation Comments POC-GLUCOSE METER 184 mg/dL 70-110 H : TESTED A T [facility] 6720 (BEAKER) (test code = [facility], 1538) [address]: Teller Vault/Techni ras ID = [id number] for DO RACHEL REDD CBC with platelet count + automated [id number] 06:31:00 Test Item Value Reference Range Interpretation Comments WBC (test code = 6690-2) 19.1 3.5- 10.5 K/L H RBC (test code = 789-8) 4.85 3.93- 5.22 M/L MCHC (test code = 786-4) 29.3 32.2- 35.5 GM/DL L Hematocrit (test code = 4544-3) 40.3 % 34.1-44.9 MCV (test code = 787-2) 83.1 fL 79.4-94.8 MCH (test code = 785-6) 24.3 pg 25.6-32.2 L RDW (test code = 788-0) 16.7 % 11.7-14.4 H Platelets (test code = 777-3) 154 150- 450 K/CU MM MPV (test code = 94573-7) 12.4 fL 9.4-12.3 H nRBC (test code = 413) 0 0- 0 /100 WBC % Neutros (test code = 429) 82 % % Lymphs (test code = 430) 12 % % Monos (test code = 431) 5 % % Eos (test code = 432) 0 % % Baso (test code = 437) 0 % # Neutros (test code = 670) 15.53 1.56- 6.13 K/L H # Lymphs (test code = 414) 2.34 1.18- 3.74 K/L # Monos (test code = 415) 0.92 0.24- 0.36 K/L H # Eos (test code = 416) 0.06 0.04- 0.36 K/L # Baso (test code = 417) 0.03 0.01- 0.08 K/L Immature Granulocytes-Relative 1 % 0-1 (test code = 2801) Lab Interpretation (test code = Abnormal 84695-7) [facility] W/PLT COUNT & AUTO [id number] 06:31:00 Test Item Value Reference Range Interpretation Comments WHITE BLOOD CELL COUNT (BEAKER) 19.1 K/ L 3.5-10.5 H (test code = 775) RED BLOOD CELL COUNT (BEAKER) 4.85 M/ L 3.93-5.22 (test code = 761) HEMOGLOBIN (BEAKER) (test code = 11.8 GM/DL 11.2-15.7 410) HEMATOCRIT (BEAKER) (test code = 40.3 % 34.1-44.9 411) MEAN CORPUSCULAR VOLUME (BEAKER) 83.1 fL 79.4-94.8 (test code = 753) MEAN CORPUSCULAR HEMOGLOBIN 24.3 pg 25.6-32.2 L (BEAKER) (test code = 751) MEAN CORPUSCULAR HEMOGLOBIN CONC 29.3 GM/DL 32.2-35.5 L (BEAKER) (test code = 752) RED CELL DISTRIBUTION WIDTH 16.7 % 11.7-14.4 H (BEAKER) (test code = 412) PLATELET COUNT (BEAKER) (test 154 K/CU MM 150-450 code = 756) MEAN PLATELET VOLUME (BEAKER) 12.4 fL 9.4-12.3 H (test code = 754) NUCLEATED RED BLOOD CELLS 0 /100 WBC 0-0 (BEAKER) (test code = 413) NEUTROPHILS RELATIVE PERCENT 82 % (BEAKER) (test code = 429) LYMPHOCYTES RELATIVE PERCENT 12 % (BEAKER) (test code = 430) MONOCYTES RELATIVE PERCENT 5 % (BEAKER) (test code = 431) EOSINOPHILS RELATIVE PERCENT 0 % (BEAKER) (test code = 432) BASOPHILS RELATIVE PERCENT 0 % (BEAKER) (test code = 437) NEUTROPHILS ABSOLUTE COUNT 15.53 K/ L 1.56-6.13 H (BEAKER) (test code = 670) LYMPHOCYTES ABSOLUTE COUNT 2.34 K/ L 1.18-3.74 (BEAKER) (test code = 414) MONOCYTES ABSOLUTE COUNT (BEAKER) 0.92 K/ L 0.24-0.36 H (test code = 415) EOSINOPHILS ABSOLUTE COUNT 0.06 K/ L 0.04-0.36 (BEAKER) (test code = 416) BASOPHILS ABSOLUTE COUNT (BEAKER) 0.03 K/ L 0.01-0.08 (test code = 417) IMMATURE GRANULOCYTES-RELATIVE 1 % 0-1 PERCENT (BEAKER) (test code = 2801) POCT-GLUCOSE [id number] 18:19:00 Test Item Value Reference Range Interpretation Comments POC-GLUCOSE METER 148 mg/dL 70-110 H : TESTED A T [facility] 6720 (BEAKER) (test code = [place], 1538) [address]: Teller Vault/Techni ras ID = [id number] for HU NT, MAGGIE Urinalysis w/Microscopic + Reflex to [id number] 15:46:00 Test Item Value Reference Range Interpretation Comments Color, UA (test code = Yellow 5778-6) Clarity, UA (test code = Hazy 5767-9) Specific [place], UA 1.028 1.001-1.035 (test code = 5811-5) pH, UA (test code = 6.0 5.0-8.0 5803-2) Protein, UA (test code = 30 mg/dL Negative A 18170-7) Glucose, UA (test code = Negative Negative 365) Ketones, UA (test code = Negative Negative 2514-8) Bilirubin, UA (test code Negative Negative = 83271-4) Blood, UA (test code = Negative Negative 62036-7) Nitrite, UA (test code = Negative Negative 5802-4) Leukocytes, UA (test code Moderate Negative A = 5799-2) Urobilinogen, UA (test 0.2 mg/dL 0.2-1 code = 31312-5) RBC, UA (test code = 2 /HPF 82753-2) WBC, UA (test code = 28 /HPF 5821-4) Mucus (test code = Occasional 8247-9) Squam Epithel, UA (test 1 /HPF code = 92143-9) Hyaline Casts, UA (test 1 /LPF code = 32650-4) Ca Oxalate Jagruti, UA (test Occasional code = 01081-8) Specimen Source (test code = 2795) ZIA (test code = ZIA) Teller Vault ID - [auto]Teller Vault ID - radha Lab Interpretation (test Abnormal code = 06606-4) [facility] URINE [id number] 15:46:00 Test Item Value Reference Range Interpretation Comments COLOR (BEAKER) (test code = 470) Yellow CLARITY (BEAKER) (test code = 469) Hazy SPECIFIC GRAVITY UA (BEAKER) (test 1.028 1.001-1.035 code = 468) PH UA (BEAKER) (test code = 467) 6.0 5.0-8.0 PROTEIN UA (BEAKER) (test code = 30 mg/dL Negative A 464) GLUCOSE UA (BEAKER) (test code = Negative Negative 365) KETONES UA (BEAKER) (test code = Negative Negative 371) BILIRUBIN UA (BEAKER) (test code = Negative Negative 462) BLOOD UA (BEAKER) (test code = Negative Negative 461) NITRITE UA (BEAKER) (test code = Negative Negative 465) LEUKOCYTE ESTERASE UA (BEAKER) Moderate Negative A (test code = 466) UROBILINOGEN UA (BEAKER) (test 0.2 mg/dL 0.2-1.0 code = 463) RBC UA (BEAKER) (test code = 519) 2 /HPF WBC UA (BEAKER) (test code = 520) 28 /HPF MUCUS (BEAKER) (test code = 1574) Occasional SQUAMOUS EPITHELIAL (BEAKER) (test 1 /HPF code = 516) HYALINE CASTS (BEAKER) (test code 1 /LPF = 514) CALCIUM OXALATE CRYSTALS (BEAKER) Occasional (test code = 518) SOURCE(BEAKER) (test code = 2795) Teller Vault ID - [auto]Teller Vault ID - hankPOCT-GLUCOSE [id number] 12:47:00 Test Item Value Reference Range Interpretation Comments POC-GLUCOSE METER 128 mg/dL 70-110 H : TESTED A T [facility] 6720 (BEAKER) (test code = [facility], 1538) [address]: Teller Vault/Techni ras ID = [id number] for Elizabeth Valladares POCT-GLUCOSE [id number] 12:34:00 Test Item Value Reference Range Interpretation Comments POC-GLUCOSE METER 131 mg/dL 70-110 H : TESTED A T [facility] 6720 (BEAKER) (test code = [facility] Exo [facility], 1538) [address]: Teller Vault/Techni ras ID = [id number] for RO DGERS, [place] FL, ESOPH, SWALLOW FUNCTION, WITH CINE OR [id number] 12:20:00Reason for exam:->dysphagiaFINAL REPORT EXAMINATION: Modified barium swallow study INDICATION: Dysphasia. COMPARISON: Chest radiograph dated 02/13/2020. TECHNIQUE: The examination was performed in conjunction with speech pathology. Varying consistencies of barium was administered under lateral fluoroscopicobservation. Fluoroscopy time: 0.2 minutesNumber of images: 1 IMPRESSION:Please refer to speech pathologist's note from same date for further description. Penetration of the airway with consistency. Noaspiration with any of the administered consistencies. Signed: Alan Ya MDReport Verified Date/Time: 02/14/2020 12:20:00 Reading Location: [address] Transitional Reading Room [place] esoph swallow funct with cine [id number] 12:20:00Interface, External Ris In - 02/14/2020 12:22 PM CDTFINAL REPORT EXAMINATION:Modified barium swallow study INDICATION: Dysphasia. COMPARISON: Chest radiograph dated 02/13/2020. TECHNIQUE: The examination was performed in conjunction with speech pathology. Varying consistencies of barium was administered under lateral fluoroscopic observation. Fluoroscopy time: 0.2 minutesNumberof images: 1 IMPRESSION:Please refer to speech pathologist's note from same date for further description. Penetration of the airway with consistency. No aspiration with any of the administered consistencies. Signed: Alan Yaeport Verified Date/Time: 02/14/2020 12:20:00 Reading Location: [facility] C0T Transitional Reading Room [facility] W/PLT COUNT & AUTO [id number] 04:50:00 Test Item Value Reference Range Interpretation Comments WHITE BLOOD CELL COUNT (BEAKER) 19.9 K/ L 3.5-10.5 H (test code = 775) RED BLOOD CELL COUNT (BEAKER) 4.81 M/ L 3.93-5.22 (test code = 761) HEMOGLOBIN (BEAKER) (test code = 11.5 GM/DL 11.2-15.7 410) HEMATOCRIT (BEAKER) (test code = 38.9 % 34.1-44.9 411) MEAN CORPUSCULAR VOLUME (BEAKER) 80.9 fL 79.4-94.8 (test code = 753) MEAN CORPUSCULAR HEMOGLOBIN 23.9 pg 25.6-32.2 L (BEAKER) (test code = 751) MEAN CORPUSCULAR HEMOGLOBIN CONC 29.6 GM/DL 32.2-35.5 L (BEAKER) (test code = 752) RED CELL DISTRIBUTION WIDTH 16.6 % 11.7-14.4 H (BEAKER) (test code = 412) PLATELET COUNT (BEAKER) (test 154 K/CU MM 150-450 code = 756) MEAN PLATELET VOLUME (BEAKER) 12.0 fL 9.4-12.3 (test code = 754) NUCLEATED RED BLOOD CELLS 0 /100 WBC 0-0 (BEAKER) (test code = 413) NEUTROPHILS RELATIVE PERCENT 74 % (BEAKER) (test code = 429) LYMPHOCYTES RELATIVE PERCENT 18 % (BEAKER) (test code = 430) MONOCYTES RELATIVE PERCENT 6 % (BEAKER) (test code = 431) EOSINOPHILS RELATIVE PERCENT 1 % (BEAKER) (test code = 432) BASOPHILS RELATIVE PERCENT 0 % (BEAKER) (test code = 437) NEUTROPHILS ABSOLUTE COUNT 14.79 K/ L 1.56-6.13 H (BEAKER) (test code = 670) LYMPHOCYTES ABSOLUTE COUNT 3.61 K/ L 1.18-3.74 (BEAKER) (test code = 414) MONOCYTES ABSOLUTE COUNT (BEAKER) 1.11 K/ L 0.24-0.36 H (test code = 415) EOSINOPHILS ABSOLUTE COUNT 0.18 K/ L 0.04-0.36 (BEAKER) (test code = 416) BASOPHILS ABSOLUTE COUNT (BEAKER) 0.04 K/ L 0.01-0.08 (test code = 417) IMMATURE GRANULOCYTES-RELATIVE 1 % 0-1 PERCENT (BEAKER) (test code = 2801) POCT-GLUCOSE [id number] 01:00:00 Test Item Value Reference Range Interpretation Comments POC-GLUCOSE METER 261 mg/dL 70-110 H : TESTED A T [facility] 6720 (BEAKER) (test code = [facility], 1538) [address]: Teller Vault/Techni ras ID = [id number] for RACHEL MACK POCT-GLUCOSE [id number] 17:38:00 Test Item Value Reference Range Interpretation Comments POC-GLUCOSE METER 396 mg/dL 70-110 H : TESTED A T [facility] 6720 (BEAKER) (test code [facility], = 1538) [address]: Teller Vault/Techni ras ID = [id number] for TSEG LEILA COSME RAD, CHEST, 2 [id number] 12:51:00Reason for exam:->evaluate position of left chest mediportFINAL REPORT CLINICAL HISTORY: evaluate position of left chest mediport TECHNIQUE: 2 views of the chest COMPARISON: 02/12/2020 IMPRESSION: The tip of the left chest wall port again terminates in the left superior mediastinum. Ventriculoperitoneal shunt tubing again projects over the right hemibody. Left lung base opacity is again seen with small left greater than right pleural effusions. There is mild cardiomegaly. Cervical fusion hardware is again seen. Signed: Megan Greenwood Verified Date/Time: 02/13/2020 12:51:24 Reading Location: [facility] Radiology Reading Room XR chest 2 [id number] 12:51:00Interface, External Ris In - 02/13/2020 12:53 PM CDTFINAL REPORT CLINICAL HISTORY: evaluate position of left chest mediport TECHNIQUE: 2 views of the chest COMPARISON: 02/12/2020 IMPRESSION: The tip of the left chest wall port again terminates in the left superior mediastinum. Ventriculoperitoneal shunt tubing again projects over the right hemibody. Left lung base opacity is again seen with small left greater than right pleural effusions. There is mild cardiomegaly. Cervical fusion hardware is again seen. Signed: Megan Greenwood MDReport Verified Date/Time: 02/13/2020 12:51:24Reading Location: [facility] Radiology Reading [facility] [id number] 08:20:00 Test Item Value Reference Range Interpretation Comments POC-GLUCOSE METER 180 mg/dL 70-110 H : Notified RN/MD: TESTED (KATHLEEN) (test code AT [address] = 1538) [facility], [facility] 30: Teller Vault/Techni ras ID = [id number] for TSEG GAI, TSIGHEREDA POCT-GLUCOSE [id number] 23:11:00 Test Item Value Reference Range Interpretation Comments POC-GLUCOSE METER 254 mg/dL 70-110 H : Notified RN/MD: (KATHLEEN) (test code = TESTED AT [place] [address] 1538) [facility], [address]: Teller Vault/Techni ras ID = [id number] for LATHBRIDGE, MARIA ICE POCT-GLUCOSE [id number] 17:32:00 Test Item Value Reference Range Interpretation Comments POC-GLUCOSE METER 386 mg/dL 70-110 H : Notified RN/MD: TESTED ([facility]) (test code AT [facility] [address] = 1538) [facility], 770 30: Teller Vault/Techni ras ID = [id number] for LEILA LEDESMA RAD, CHEST, 1 VIEW, NON [id number] 14:59:00Reason for exam:->concern for aspirationShould this be performed at the bedside?->YesFINAL REPORT RAD, CHEST, 1 VIEW, NON DEPT TECHNIQUE: Frontal view of the chest . INDICATION: concern for aspiration. COMPARISON: None FINDINGS/IMPRESSION: Lines/Tubes: Left chestMediport, tip of the catheter projects over the aortic arch, uncertain position. Partially visualized ventriculoperitoneal shunt. Lungs/pleura: Tenting of the left hemidiaphragm. Some likely streaky left basal atelectasis or scar. No pneumothorax. Trace right pleural effusion or pleural parenchymal scarring. Heart and Mediastinum: Mild cardiomegaly and aortic knob calcifications. Soft Tissues and Bones: Partially visualized cervical spine fixation hardware. Degenerative changes. No acute osseous abnormality. Signed: Mehnaz Maxwell Verified Date/Time: 02/12/2020 14:59:34 Reading Location: [address] Body Reading Room XR chest 1 view portable / [id number] 14:59:00Interface, External Ris In - 02/12/2020 3:01 PM CDTFINAL REPORT RAD, CHEST, 1 VIEW, NON DEPT TECHNIQUE: Frontal view of the chest. INDICATION: concern for aspiration. COMPARISON: None FINDINGS/IMPRESSION: Lines/Tubes: Left chest Mediport, tip of the catheter projects over the aortic arch, uncertain position. Partially visualized ventriculoperitoneal shunt. Lungs/pleura: Tenting of the left hemidiaphragm. Some likely streaky left basal atelectasis or scar. No pneumothorax. Trace right pleural effusion or pleural parenchymal scarring. Heart and Mediastinum: Mild cardiomegalyand aortic knob calcifications. Soft Tissues and Bones: Partially visualized cervical spine fixationhardware. Degenerative changes. No acute osseous abnormality. Signed: Mehnaz Maxwell Verified Date/Time: 02/12/2020 14:59:34 Reading Location: [place] [id number] CT Body Reading Room Electronicallysigned by: MEHNAZ MAXWELL MD on 02/12/2020 02:59 [facility] T4 If [id number] 13:50:00 Test Item Value Reference Range Interpretation Comments TSH (test code = 50812-9) 1.158 0.350- 4.940 uIU/mL Lab Interpretation (test code = Normal 74299-5) [facility] T[facility] IF [id number] 13:50:00 Test Item Value Reference Range Interpretation Comments THYROID STIMULATING HORMONE 1.158 uIU/mL 0.350-4.940 (BEAKER) (test code = 772) Comprehensive metabolic [id number] 12:44:00 Test Item Value Reference Range Interpretation Comments Protein, Total (test 4.8 6.0- 8.3 gm/dL L Speci men slightly code = 2885-2) hemolyzed Albumin (test code = 2.9 g/dL 3.5-5 L Specime n slightly 01766-1) hemolyzed Alkaline Phosphatase 174 U/L 40-150 H (test code = 6768-6) Total Bilirubin (test 0.3 mg/dL 0.2-1.2 Specim en slightly code = 1975-2) hemolyzed Sodium (test code = 140 meq/L 127-314 5923-2) Potassium (test code = 3.6 meq/L 3.5-5.1 Speci men slightly 2823-3) hemolyzed Chloride (test code = 105 meq/L 98-107 2075-0) CO2 (test code = 28 meq/L 22-29 8-9) BUN (test code = 11 mg/dL 7-21 3094-0) Creatinine (test code = 0.48 mg/dL 0.57-1.25 L Spec imen slightly 2160-0) hemolyzed Glucose (test code = 95 mg/dL 70-105 2345-7) Calcium (test code = 8.2 mg/dL 8.4-10.2 L 23263-7) AST (test code = 32 U/L 5-34 Specimen ightly 0-8) hemolyzed ALT (test code = 31 U/L 6-55 Specimen sl ightly 1742-6) hemolyzed EGFR (test code = 127 mL/min/1.73 [place] [address]-4) NOT ACCURATE CREATININE CLEARANCE IN PREDICTING GLOMERULAR FILTRATION RATE . ESTIMATED GFR I S NOT APPLICABLE FOR DIALYSIS PATIEN TS. Lab Interpretation Abnormal (test code = 00645-1) [facility] HospitalCOMPREHENSIVE METABOLIC [id number] 12:44:00 Test Item Value Reference Range Interpretation Comments TOTAL PROTEIN 4.8 gm/dL 6.0-8.3 L Specimen sligh tly (BEAKER) (test code = hemoly zed 770) ALBUMIN (BEAKER) 2.9 g/dL 3.5-5.0 L Specimen sl ightly (test code = 1145) hemolyzed ALKALINE PHOSPHATASE 174 U/L 40-150 H (BEAKER) (test code = 346) BILIRUBIN TOTAL 0.3 mg/dL 0.2-1.2 Specimen sli ghtly (BEAKER) (test code = hemoly zed 377) SODIUM (BEAKER) (test 140 meq/L 136-145 code = 381) POTASSIUM (BEAKER) 3.6 meq/L 3.5-5.1 Specimen slightly (test code = 379) hemolyzed CHLORIDE (BEAKER) 105 meq/L 98-107 (test code = 382) CO2 (BEAKER) (test 28 meq/L 22-29 code = 355) BLOOD UREA NITROGEN 11 mg/dL 7-21 (BEAKER) (test code = 354) CREATININE (BEAKER) 0.48 mg/dL 0.57-1.25 L Specimen slightly (test code = 358) hemolyzed GLUCOSE RANDOM 95 mg/dL 70-105 (BEAKER) (test code = 652) CALCIUM (BEAKER) 8.2 mg/dL 8.4-10.2 L (test code = 697) AST (SGOT) (BEAKER) 32 U/L 5-34 Specimen slightly (test code = 353) hemolyzed ALT (SGPT) (BEAKER) 31 U/L 6-55 Specimen slightly (test code = 347) hemolyzed EGFR (BEAKER) (test 127 ESTIMATE D GFR IS code = 1092) mL/min/1.73 sq NOT ACCURA TE m CREATININE CLEARANCE IN PREDICTING GLOMERULAR FILTRATION RATE . ESTIMATED GFR I S NOT APPLICABLE FOR DIALYSIS PATIEN TS. Creatine Kinase (CK)2020-02-12 12:29:00 Test Item Value Reference Range Interpretation Comments Total CK (test code = 2157-6) 47 U/L 29-200 Lab Interpretation (test code = Normal 61545-4) [facility] 12:29:00 Test Item Value Reference Range Interpretation Comments LDH (test code = 2532-0) 401 U/L 125-220 H Spe cimen slightly hemolyzed Lab Interpretation (test Abnormal code = 87656-7) [facility]2020-02-12 12:29:00 Test Item Value Reference Range Interpretation Comments LACTATE DEHYDROGENASE 401 U/L 125-220 H Specim en slightly (BEAKER) (test code = hemoly zed 635) CREATINE KINASE (CK)2020-02-12 12:29:00 Test Item Value Reference Range Interpretation Comments CREATINE KINASE TOTAL (BEAKER) (test 47 U/L 29-200 code = 380) Vitamin [id number] 12:28:00 Test Item Value Reference Range Interpretation Comments Vitamin B12 (test code = 2132-9) 486 pg/mL 213-816 Lab Interpretation (test code = Normal 99280-2) [facility] [id number] 12:28:00 Test Item Value Reference Range Interpretation Comments VITAMIN B12 (BEAKER) (test code = 486 pg/mL 213-816 774) POCT-GLUCOSE [id number] 12:20:00 Test Item Value Reference Range Interpretation Comments POC-GLUCOSE METER 147 mg/dL 70-110 H : TESTED A T [facility] 6720 (BEAKER) (test code [facility], = 1538) [address]: [employer]/Techni ras ID = [id number] for LEILA LEDESMA SARS-CoV2/RT-PCR (Asymptomatic ONLY)2020-02-12 12:08:00 Test Item Value Reference Range Interpretation Comments SARS-COV2/RT-PCR Negative Not Detected, (test code = Negative, See 54404-2) external report for linked test SARS-COV-2 [facility] (test code = 13109-8) ZIA (test code = Negative result for this ZIA) test determines that SARS-CoV-2 RNA was not present in the [...] of the Act. Fact Sheet for Healthcare Providers:https://www.[employer]/sites/default/f humble/product/documents/F act_Sheet_HC_Providers_L pfb_YUBS-VuD-5.pdf Fact Sheet for Healthcare Patients:https://www.osei del.[employer]/sites/default/fi les/product/documents/Fa ct_Sheet_Patients_Lyra_S ARS-CoV-2.pdf Performing Laboratory:[facility] [place] [address] [facility] HospitalARS-COV2/RT-PCR ([facility])2020-02-12 12:08:00 Test Item Value Reference Range Interpretation Comments SARS-COV2/RT-PCR (test Negative Not Detected, Negative, code = 3101065) See external report for linked test SARS-COV-2 PERFORMING LAB [facility] (test code = 4976362) Negative result for this test determines that SARS-CoV-2 RNA was not present in the specimen above the Limit of Detection (LOD). However, Negative results do not preclude SARS-CoV-2 infection and should not be used as the sole basis for treatment or patient management decisions. Negative results mustbe combined with clinical observations, patient history, and epidemiological information. A false negative result may occur if a specimen is improperly collected, transported or handled. A false negative result should be considered if patient's recent exposures or clinical presentation indicate that COVID-19 (SARS-CoV-2) is likely and diagnostic tests for other causes of illness are negative. Re-testing should be considered in cases of suspected false negatives.The limit of detection for this assay is 800 copies/mL.This SARS CoV-2 test is a real-time RT-PCR test intended for the qualitative detection of nucleic acid from SARS-CoV-2 in a nasopharyngeal swab specimen collected from individuals suspected of COVID-19 by their healthcare provider.This test has not been Food and Drug [...] is revoked under Section 564(g) of the Act.Fact Sheet for Healthcare Providers:https://www.[employer].com/sites/default/files/product/documents/Fact_Shee q_HY_Arvdyqzcm_Gbrk_WRCZ-ByV-5.pdfFact Sheet for Healthcare Patients:https://www.[employer].com/sites/default/files/product/ documents/Vadc_Bempv_Thzyiwbz_Nkak_QFYF-PlJ-8.pdfPerforming Laboratory:[facility], [place] [address]VJUD-QVTSBFC METER 2020-02-12 09:52:00 Test Item Value Reference Range Interpretation Comments POC-GLUCOSE METER 74 mg/dL 70-110 : TESTED A T [facility] (BEAKER) (test code [facility], = 1538) [address]: [employer] Vault/Techni ras ID = [id number] for LEILA LEDESMA CBC W/PLT COUNT & AUTO SHEYEVNHLBRZ9162-27-77 09:04:00 Test Item Value Reference Range Interpretation Comments WHITE BLOOD CELL COUNT (BEAKER) 17.0 K/ L 3.5-10.5 H (test code = 775) RED BLOOD CELL COUNT (BEAKER) 5.34 M/ L 3.93-5.22 H (test code = 761) HEMOGLOBIN (BEAKER) (test code = 13.0 GM/DL 11.2-15.7 410) HEMATOCRIT (BEAKER) (test code = 44.7 % 34.1-44.9 411) MEAN CORPUSCULAR VOLUME (BEAKER) 83.7 fL 79.4-94.8 (test code = 753) MEAN CORPUSCULAR HEMOGLOBIN 24.3 pg 25.6-32.2 L (BEAKER) (test code = 751) MEAN CORPUSCULAR HEMOGLOBIN CONC 29.1 GM/DL 32.2-35.5 L (BEAKER) (test code = 752) RED CELL DISTRIBUTION WIDTH 16.8 % 11.7-14.4 H (BEAKER) (test code = 412) PLATELET COUNT (BEAKER) (test 153 K/CU MM 150-450 code = 756) MEAN PLATELET VOLUME (BEAKER) 12.4 fL 9.4-12.3 H (test code = 754) NUCLEATED RED BLOOD CELLS 0 /100 WBC 0-0 (BEAKER) (test code = 413) NEUTROPHILS RELATIVE PERCENT 67 % (BEAKER) (test code = 429) LYMPHOCYTES RELATIVE PERCENT 25 % (BEAKER) (test code = 430) MONOCYTES RELATIVE PERCENT 6 % (BEAKER) (test code = 431) EOSINOPHILS RELATIVE PERCENT 2 % (BEAKER) (test code = 432) BASOPHILS RELATIVE PERCENT 0 % (BEAKER) (test code = 437) NEUTROPHILS ABSOLUTE COUNT 11.40 K/ L 1.56-6.13 H (BEAKER) (test code = 670) LYMPHOCYTES ABSOLUTE COUNT 4.16 K/ L 1.18-3.74 H (BEAKER) (test code = 414) MONOCYTES ABSOLUTE COUNT (BEAKER) 0.96 K/ L 0.24-0.36 H (test code = 415) EOSINOPHILS ABSOLUTE COUNT 0.29 K/ L 0.04-0.36 (BEAKER) (test code = 416) BASOPHILS ABSOLUTE COUNT (BEAKER) 0.03 K/ L 0.01-0.08 (test code = 417) IMMATURE GRANULOCYTES-RELATIVE 1 % 0-1 PERCENT (BEAKER) (test code = 2801) MSRAZLNGPG1649-07-15 17:18:00Not Detected (12/20/19 12:18 PM)[facility] CARDIAC ZFKFLLP1863-07-98 10:06:000.02[facility] HermannCHEM TBWTZ1354-91-42 10:06:15089Btxmwhej HermannCHEM SUANW5277-79-16 10:06:0010[facility]annCHEM OXZDO9736-60-07 10:06:000.64[facility]annCHEM BFBDP1717-42-36 10:06:16857 [facility]annCHEM UMPKD1980-36-60 10:06:003.9[facility]annCHEM PANEL 2019-12-18 10:06:26464Mkhhibib HermannCHEM BSLMB1976-24-67 10:06:0028[facility]annCHEM LGNAI8088-99-78 10:06:0010.9[facility] HermannCHEM KGSPR6347-99-28 10:06:008.3[facility]annCHEM VOKSR8541-38-27 10:06:0089[facility]annCHEM TXFLJ8452-85-24 10:06:002.1[facility]annCHEM YMLAL5451-01-85 10:06:003.2 [facility] IwdndkyMNAPVVFRHR1232-41-79 10:06:009.9[facility] HermannHEMATOLOGY 2019-12-18 10:06:003.09[facility] OogydwaBPUKAEFJYR0489-59-91 10:06:009.1[facility] AnfkynkXYLLRVYLZL4273-02-67 10:06:0028.9[facility] AjkfhbrNQJCZZWUQT2663-32-24 10:06:0093.7[facility] FmxyeefJESNNJZOOP5891-94-80 10:06:00 Test Item Value Reference Range Interpretation Comments MCH (test code = MCH) 29.4 pg 27.0-31.0 [facility] SzigikiXYBMFOJRYW4749-43-73 10:06:0031.4[facility] HermannHEMATOLOGY 2019-12-18 10:06:0016.7[facility] XueveedGFZTOETQFA4887-68-38 10:06:29873Bkyvwpek WxwbfakJJOLKFHBEL9541-70-05 10:06:0010.2[facility] BcgbxcwKIOOHJUQOQ7730-39-31 10:06:0066.2[facility] YxwfixbWPOBSGBGPI6018-66-91 10:06:0023.0[facility] XEXTBSKMKL1644-42-63 10:06:008.2[facility] EotmlqvDVHEVBVTSY2446-51-54 10:06:001.2 [facility] VojvkciJNNQFMBVUO3140-73-61 10:06:001.4[facility] HermannHEMATOLOGY 2019-12-18 10:06:006.5[facility] LtvfkzvBLNAZUIBQX9088-31-30 10:06:002.3[facility] TyfzufiUUZTNLRTCN5279-06-63 10:06:000.8[facility] CnonfiwIADZKKONSV4540-13-11 10:06:000.1[facility] NgrxpnpXYQPFKIBIV6689-97-07 10:06:000.1[facility] AND RDEVX9807-97-94 10:06:00Dark Yellow *NA*(12/18/19 5:06 AM)[facility] URINE AND YDCZD6467-88-44 10:06:00Slight *ABN*(12/18/19 5:06 AM)[facility] URINE AND LDDIH0441-31-03 10:06:00 Test Item Value Reference Range Interpretation Comments UA Spec Grav (test code = UA Spec 1.018 1 Grav) [facility] OQRVU1560-03-04 10:06:00 Test Item Value Reference Range Interpretation Comments UA pH (test code = UA pH) 6.0 1 5.0-8.0 [facility] MGDGU4332-15-79 10:06:00Negative *NA*(12/18/19 5:06 AM) [facility] DBFOV4864-26-69 10:06:00Negative (12/18/19 5:06 AM) [facility] LCWTJ9701-01-58 10:06:004.0[facility] ONYJC9534-57-48 10:06:00Negative (12/18/19 5:06 AM)[facility] RPGOT8890-92-13 10:06:00Negative (12/18/19 5:06 AM)[facility] XMXRA0486-04-29 10:06:0010[facility] ZQOHO0115-46-40 10:06:002 [facility] AND PQXZC5011-94-09 10:06:007[facility] HermannCHEM PANEL 2019-12-17 16:05:12768Yujykqtt HermannCHEM EVBEA4344-93-59 16:05:0011[facility]annCHEM ZHHCT0960-62-02 16:05:000.80[facility]annCHEM CTGPC9638-83-49 16:05:83065Wbnpiwru HermannCHEM TWIBY6182-86-41 16:05:003.4[facility]annCHEM XGIJX5328-95-92 16:05:31625Daekshxo HermannCHEM NYAPS1190-21-47 16:05:0031 [facility]annCHEM BMBMN6837-55-37 16:05:008.2[facility] HermannCHEM PANEL 2019-12-17 16:05:007.4[facility] HermannCHEM SRJAB0907-24-40 16:05:0074[facility] HermannCHEM ECEIC1884-97-75 16:05:001.9[facility]annCHEM LCCHB3304-58-61 16:05:002.8[facility] UujmyusLKHXXUHJGX4351-92-39 16:05:008.9[facility] MMNLTCSHDQ3186-97-87 16:05:003.03[facility] VxkcqwfPXKKXLOLQD2049-55-82 16:05:00 9.3[facility] EbmzosfCPLVMFHECP4768-55-70 16:05:0028.4[facility] HermannHEMATOLOGY 2019-12-17 16:05:0093.8[facility] BltstcrVLJTIQZLBQ5469-42-37 16:05:00 Test Item Value Reference Range Interpretation Comments MCH (test code = MCH) 30.7 pg 27.0-31.0 [facility] YfcljonTKYVRZTUDC1610-89-16 16:05:0032.8[facility] HermannHEMATOLOGY 2019-12-17 16:05:0016.9[facility] FpxgrfgZOGVWCTADJ4815-51-56 16:05:19186Zgiszfrd XvibigrBZORVEYIHQ5932-04-80 16:05:009.7[facility] LpgblhtNDVBYWBQJE3542-52-36 16:05:0071.0[facility] BlbysugBJQRGVAZZI2968-98-55 16:05:0016.3[facility] DKFQSMXCSP6346-09-05 16:05:006.5[facility] DlbvdncSKXHOUUGQA4190-17-24 16:05:004.0 [facility] VornbxaGHUKSDBZLR2649-74-96 16:05:002.2[facility] HermannHEMATOLOGY 2019-12-17 16:05:006.3[facility] VrgxhxxWCIIOOUOSN5605-06-41 16:05:001.4[facility] BszuazzNTEHLSLFAT0253-85-09 16:05:000.6[facility] QrsdjccRCVSKYLABI1650-43-10 16:05:000.4[facility] KilqtzhEHKLCRWICQ8609-22-46 16:05:000.2[facility] CARDIAC RNCFUQJ5859-96-14 05:24:000.03[facility] HermannCHEM CZLMV0934-22-87 05:24:94285Ykxnjgpc HermannCHEM ACGVU6023-45-47 05:24:0012[facility]annCHEM JJDMV2242-17-40 05:24:000.59[facility] HermannCHEM GQYVJ5206-21-41 05:24:62364 [facility]annCHEM DYALS6640-11-04 05:24:003.9[facility] HermannCHEM PANEL 2019-12-15 05:24:24987Rbggmgii HermannCHEM QCAMW8606-34-13 05:24:0034[facility]annCHEM BTMPZ6310-56-35 05:24:008.3[facility] HermannCHEM UYOUK4287-02-16 05:24:008.9[facility] HermannCHEM GJILB4117-93-83 05:24:0092[facility]annCHEM RJMBL2876-70-21 05:24:002.1[facility]annCHEM QFXIC8603-41-12 05:24:002.4 [facility] ZtbelngTVTOKINZUJ5624-90-68 05:24:0011.9[facility] HermannHEMATOLOGY 2019-12-15 05:24:003.25[facility] HpauvbjXVYFVBLOTY1120-30-70 05:24:009.5[facility] HslgcvdBJFBSWZCHU6487-57-16 05:24:0030.4[facility] PcvlwjsJRTUPYANEU1047-94-82 05:24:0093.5[facility] SelucraUIEIOSXNKV6181-03-20 05:24:00 Test Item Value Reference Range Interpretation Comments MCH (test code = MCH) 29.3 pg 27.0-31.0 [facility] JpnwifbBXVLZAQFAA5711-24-64 05:24:0031.4[facility] HermannHEMATOLOGY 2019-12-15 05:24:0017.3[facility] GcfpdrgPXLZWVRCNI9754-67-51 05:24:48420Pqenapkg XbkaxvlRTCSBFNIOV0267-54-92 05:24:0010.2[facility] KsnuzyfITJLJMVMYD9447-45-40 05:24:0069.3[facility] ZwkeaweVATYBXLFAY9131-40-57 05:24:0018.5[facility] VSSUNHOKKQ1538-03-28 05:24:007.6[facility] VsupenmHBDODAIQLS3573-21-90 05:24:003.8 [facility] WxxhaiiRGSAEHAIJQ9334-48-49 05:24:000.8[facility] HermannHEMATOLOGY 2019-12-15 05:24:008.3[facility] ZmrkvlaWWHEOOUNIA9335-61-78 05:24:002.2[facility] UcydkyoBOBEETLWAR4965-44-59 05:24:000.9[facility] KazqtwzFATJMWDULI9616-97-15 05:24:000.5[facility] UhfteulQMKTUWZCFA4732-25-89 05:24:000.1[facility] ADHREXFNYX9485-78-56 11:58:00Normal (12/14/19 6:58 AM)[facility]annHEMATOLOGY 2019-12-14 11:58:00Normal (12/14/19 6:58 AM)[facility]annCHEM SNOTT0347-15-40 15:50:005.2[facility]annCHEM IFNVU4006-38-11 15:50:002.2[facility]annCHEM NKNHL8385-44-82 15:50:0022[facility]annCHEM JVPND4647-27-98 15:50:0013 [facility]annCHEM KDLXS1864-95-85 15:50:42150Bxstqxzn HermannCHEM PANEL 2019-12-11 15:50:000.9[facility]annCHEM YQLDJ8621-03-38 15:50:00 Test Item Value Reference Range Interpretation Comments B/C Ratio (test code = B/C Ratio) 25 1 6-25 [facility]CHE[facility] GTGGX0402-89-71 15:50:003.0[facility] HermannCHEM PANEL 2019-12-11 15:50:00 Test Item Value Reference Range Interpretation Comments A/G Ratio (test code = A/G Ratio) 0.7 1 0.7-1.6 [facility] HermannBODY TTPAGK1537-30-58 17:45:00Positive *ABN*(12/09/19 12:45 PM) [facility] YzlscauQPWBDJJNYZ6499-36-32 16:46:00Normal (12/09/19 11:46 AM)[facility] VnwbscoOOOEDWXLRH0002-43-01 16:46:00Normal (12/09/19 11:46 AM)[facility] CHEM PDNAF6734-35-91 05:23:004.5[facility] HermannCHEM WVSNL3606-96-93 05:23:002.5 [facility]annCHEM CYALR5141-64-91 05:23:0027[facility] HermannCHEM PANEL 2019-12-07 05:23:0011[facility]annCHEM VYMRN6155-04-24 05:23:0082[facility]annCHEM OILJH1688-73-09 05:23:000.8[facility]annCHEM IYRCU7084-67-90 05:23:000.3[facility]annCHEM TDTMF0624-80-71 05:23:000.5[facility]annCHEM AXVNE1273-40-94 05:23:002.0[facility]annCHEM NGDIG6813-86-15 05:23:00 Test Item Value Reference Range Interpretation Comments A/G Ratio (test code = A/G Ratio) 1.2 1 0.7-1.6 [facility] HermannPARATHYROID RPIYHIR4111-48-36 05:23:001.05[facility] PARATHYROID NOBGHVU9442-13-84 05:23:001.09[facility] YislezdDVRRPWEUTQ7740-21-28 05:37:00 Test Item Value Reference Range Interpretation Comments PTT (test code = PTT) 31.1 s 22.9-35.8 [facility] QmisrotWJDUZYASCQ9799-46-40 05:37:00 Test Item Value Reference Range Interpretation Comments PT (test code = PT) 15.3 s 12.0-14.7 [facility] DndttgjDBVSCAUQFI9952-23-47 05:37:00 Test Item Value Reference Range Interpretation Comments INR (test code = INR) 1.20 1 0.85-1.17 [facility] HermannPARATHYROID MMXCSQN2494-89-60 05:21:001.06[facility] PARATHYROID DEIDOCW7765-52-12 05:21:001.10[facility]annBLOOD BANK RESULTS 2019-12-05 22:53:00Product available (12/05/19 5:53 PM)[facility]annHEMATOLOGY 2019-12-05 22:43:00See Note 1(12/05/19 5:43 PM)[facility]annHEMATOLOGY 2019-12-05 22:43:001+ *ABN*(12/05/19 5:43 PM)[facility]BL[facility] RESULTS 2019-12-05 22:21:00Product available (12/05/19 5:21 PM)[facility] GEZYLRA2241-37-54 06:02:00Negative (12/05/19 1:02 AM)[facility] SNVYJTP4641-02-81 06:02:00Result Note 5(12/05/19 1:02 AM)[facility] EDTINFXRNT3344-76-44 06:02:00 Test Item Value Reference Range Interpretation Comments PT (test code = PT) 12.8 s 12.0-14.7 [facility] JwmgfhxEGLCPZJTPX7588-69-51 06:02:00 Test Item Value Reference Range Interpretation Comments INR (test code = INR) 0.96 1 0.85-1.17 [facility] PtdqtreKHGOXIDVLO4466-28-60 06:02:00 Test Item Value Reference Range Interpretation Comments PTT (test code = PTT) 28.3 s 22.9-35.8 [facility]annCHEM SQDOS1374-68-33 09:52:12136Dtitfelt HermannCHEM PANEL 2019-12-01 09:52:0016[facility]annCHEM BFHAL1515-87-20 09:52:000.75[facility]annCHEM JKKIQ4541-98-67 09:52:87046Zngeahvm [facility]annCHE[facility] NVPRX1356-59-19 09:52:003.7[facility]annCHEM HBLAP8273-82-66 09:52:13517Rkqfcaee [facility]annCHEM QBSVO7186-41-94 09:52:0029[facility]annCHEM EVDUH5455-59-59 09:52:008.3 [facility]annCHEM RFUAK2408-41-72 09:52:0010.7[facility] HermannCHEM PANEL 2019-12-01 09:52:0080[facility] LjkvqdwTGKWEVEBIX2003-55-16 09:52:0011.0[facility] DwbfzujXUPJSKYGHJ0174-36-37 09:52:004.45[facility] TfjmatuSUOFPDWPRQ8125-01-62 09:52:0013.7[facility] HmwhmiqQNDXOBLMYY4321-19-67 09:52:0041.0[facility] VNWKMZURXY6441-87-37 09:52:0092.1[facility] NdojnnfULSIYCDING8531-07-70 09:52:00 Test Item Value Reference Range Interpretation Comments MCH (test code = MCH) 30.7 pg 27.0-31.0 [facility] ImuyijtALTYVEWXQS2213-77-22 09:52:0033.4[facility] HermannHEMATOLOGY 2019-12-01 09:52:0016.7[facility] BkhzouaVURBFJZDKE1403-73-50 09:52:44773Vmqadrwb EgmxeliWYEGMVFNQD8499-44-01 09:52:009.6[facility] QthlnkaGEIRNKRGYX2783-12-30 09:52:0067.9[facility] PslxlrlRUQRBLUMRL3855-49-84 09:52:0020.7[facility] UADCHPFNEQ8286-54-83 09:52:009.8[facility] AqlbiluUJVBASHXHQ0587-26-92 09:52:000.7 [facility] PpvypcxHCWJFWYOAK9861-29-43 09:52:000.9[facility]annHEMATOLOGY 2019-12-01 09:52:007.4[facility] SvskwsnQBPBCYZCXA0098-82-50 09:52:002.3[facility] DgadyrdBGDAGQZHTQ7540-16-66 09:52:001.1[facility] HdjwyxyATRNVPOTXT9083-40-21 09:52:000.1[facility] GmufohmDJANKLGELU8259-09-07 09:52:000.1[facility]UR[facility] AND ZAPYL6348-04-60 01:14:00Light Yellow *NA*(11/30/19 8:14 PM)[facility] URINE AND CVHCJ1710-40-49 01:14:00Clear (11/30/19 8:14 PM)[facility] BGGFK3816-53-74 01:14:00 Test Item Value Reference Range Interpretation Comments UA Spec Grav (test code = UA Spec 1.012 1 Grav) [facility] MOVRE6537-18-39 01:14:00 Test Item Value Reference Range Interpretation Comments UA pH (test code = UA pH) 7.0 1 5.0-8.0 [facility] CDHJN2037-88-41 01:14:00Negative *NA*(11/30/19 8:14 PM) [facility] HKABM7468-72-53 01:14:00Small *ABN*(11/30/19 8:14 PM) [facility] JYIHL0468-12-14 01:14:00<1.0[facility] CQZTS1269-06-02 01:14:00Negative (11/30/19 8:14 PM)[facility] FLNDQ9253-72-87 01:14:00Negative (11/30/19 8:14 PM)[facility] STOOL 2019-12-01 01:14:00<1[facility] LDSHZ3879-41-76 01:14:001 [facility]annCHEM UBPFB9965-03-14 11:13:04154Ydmrnntb HermannCHEM PANEL 2019-11-30 11:13:0022[facility]annCHEM CVFRO3068-34-96 11:13:000.83[facility]annCHEM OKDGP2737-70-52 11:13:85011Vqqqrpxi [facility]annCHEM GBSID6244-81-67 11:13:005.3[facility]annCHEM TUUER2336-59-49 11:13:77897Pdrqkfro [facility]annCHEM UVJBK0395-44-44 11:13:0028[facility]annCHEM RCCJS2724-85-31 11:13:007.8 [facility]annCHEM NDWMY6793-95-77 11:13:0012.3[facility] HermannCHEM PANEL 2019-11-30 11:13:0071[facility] ApljtkiTMRRUMBQKZ6616-57-64 11:13:0010.6[facility] XxpdswkWFZMITTARB3409-06-96 11:13:004.40[facility] IqjbthnMGHPOPIWBZ5199-17-14 11:13:0013.0[facility] EkldiulCHYYXHPQIK1857-13-05 11:13:0040.0[facility] OXSQPZCQWO0202-27-21 11:13:0091.0[facility] JaepyimJOCBLYQJAV7759-45-51 11:13:00 Test Item Value Reference Range Interpretation Comments MCH (test code = MCH) 29.5 pg 27.0-31.0 [facility] EqhiytePSZWRTDELN0183-90-43 11:13:0032.4[facility] HermannHEMATOLOGY 2019-11-30 11:13:0016.5[facility] EzoeqsqEZOQMCIJXU8009-10-87 11:13:71677Phgfkvrg IbcqqzhXTLYLURTLM7233-00-40 11:13:0010.0[facility] SlkcusdIWHXEUNWKV9278-81-91 11:13:00 Test Item Value Reference Range Interpretation Comments PT (test code = PT) 13.3 s 12.0-14.7 [facility] MhxuvbjRFVLTVAUCE4847-03-15 11:13:00 Test Item Value Reference Range Interpretation Comments INR (test code = INR) 1.01 1 0.85-1.17 [facility] FwxvnhvBJTWMCCEKX7909-31-58 11:13:00 Test Item Value Reference Range Interpretation Comments PTT (test code = PTT) 29.5 s 22.9-35.8 [facility] OnquxkaSUGBWEDFSL1129-34-80 11:13:0059.5[facility] HermannHEMATOLOGY 2019-11-30 11:13:0029.2[facility] ElpownlTCWLPFQWKS4751-39-92 11:13:009.3[facility] MppbzpsTKSPGTTEWQ1389-99-22 11:13:001.0[facility] GigghbxEHEHHZNJQA3220-69-80 11:13:001.0[facility] SrefqspZZIMRTUXZO7616-06-53 11:13:006.3[facility] RROFCUSYWZ8739-38-86 11:13:003.1[facility] SndgmibGLTOJSFEQW6763-36-31 11:13:001.0 [facility] ZqaxuofVTSDIOXNRK8593-72-17 11:13:000.1[facility]annHEMATOLOGY 2019-11-30 11:13:000.1[facility]BL[facility] B[facility] CRXBKFB4066-51-52 09:04:00 Negative (11/29/19 4:04 AM)[facility]annCHEM AZEEP9554-72-55 09:04:0097 [facility]annCHEM JNSAI4823-72-07 09:04:0026[facility]annCHEM PANEL 2019-11-29 09:04:000.90[facility] HermannCHEM IFWEK8289-95-83 09:04:77185Zmxburzb [facility]annCHEM TPSLO6798-01-15 09:04:003.9[facility]annCHEM ISZHT4618-05-36 09:04:86025Zrtjebkn [facility]annCHEM IYOHV1662-23-16 09:04:0032[facility]annCHEM TNJFI6303-36-63 09:04:008.7[facility]annCHEM URKLN4596-82-50 09:04:005.9 [facility]annCHEM MDOCR1280-80-26 09:04:0064[facility]annHEMATOLOGY 2019-11-29 09:04:00 Test Item Value Reference Range Interpretation Comments PT (test code = PT) 13.6 s 12.0-14.7 [facility] YxrqosyFZIOFYNVDL1988-42-13 09:04:00 Test Item Value Reference Range Interpretation Comments INR (test code = INR) 1.04 1 0.85-1.17 [facility] GcojbxiLIHNOVBEFR7042-79-34 09:04:00 Test Item Value Reference Range Interpretation Comments PTT (test code = PTT) 30.9 s 22.9-35.8 [facility] UevdnxuPKMVBFWIVJ7993-39-11 09:04:0010.6[facility] HermannHEMATOLOGY 2019-11-29 09:04:004.50[facility] UlbghpqAAZAMIVACX6025-96-07 09:04:0013.5[facility] QqwquihMGMSIFMDNV4969-58-49 09:04:0040.4[facility] SempyfoWWKZXWLTSM1324-55-46 09:04:0089.8[facility] IsoqfvzLKZDIRGMEW4865-81-92 09:04:00 Test Item Value Reference Range Interpretation Comments MCH (test code = MCH) 30.0 pg 27.0-31.0 [facility] RznxgmnGYVAECONCB0219-78-21 09:04:0033.4[facility]annHEMATOLOGY 2019-11-29 09:04:0016.7[facility] FvgxvurLAGTAHUYRP7271-65-34 09:04:05622Sqhoowxv EwehrhoUISSTCSVFL1929-76-74 09:04:009.5[facility] OjuvvzoBEPOPSOWLH8648-57-49 09:04:0065.7[facility] ZiwvytsFIFJEDHVNC0923-32-31 09:04:0024.6[facility] CYUNPSGURI3248-78-07 09:04:008.2[facility] IhkquriQNABYKMAUS3155-33-55 09:04:000.8 [facility] UsbykxeRRKQIPYEFG5901-64-26 09:04:000.7[facility] 2019-11-29 09:04:006.9[facility] IwqlrleGYDLAOMHGL6964-32-91 09:04:002.6[facility] UmrsiclVQZDVPEPAE2215-69-59 09:04:000.9[facility] NsbzoexHUCHSRDEIX2169-94-32 09:04:000.1[facility] GocabylONGVEWDWGR8741-43-00 09:04:000.1[facility] MUUKCVZLOE2051-22-53 21:00:00Not Detected (11/27/19 4:00 PM)[facility]annCHE[facility] LSMKZ9487-97-37 09:32:16521Vqslwxox HermannCHEM HLAEL0725-89-02 09:32:0024 [facility] QVHVN1821-96-42 09:32:000.60[facility]annCHE[facility] PANEL 2019-11-27 09:32:06286Zmcgjoxh [facility] FDHCM4598-99-85 09:32:003.4[facility]CHE[facility] JSNOT6648-67-62 09:32:42873Tdqcvnap [facility] TFPIU5266-58-47 09:32:0029[facility]annCHE[facility] NJRAY0036-89-37 09:32:008.3[facility]CHE[facility] PHXDC0799-25-07 09:32:0010.4[facility]annCHE[facility] AUATC4936-45-76 09:32:0091 [facility] QeejsqbSELPQWNOUP4450-88-35 09:32:0010.2[facility]HE[facility] 2019-11-27 09:32:004.57[facility] JyullnbFGKMOUBKOP2797-10-66 09:32:0013.6[facility] ZcrndqhKIJCBZDUPG8781-32-48 09:32:0041.4[facility] BibvjdvVMBAYNFVSU5524-37-40 09:32:0090.4[facility] SgzektrOKWDOCMNIR0003-61-85 09:32:00 Test Item Value Reference Range Interpretation Comments MCH (test code = MCH) 29.8 pg 27.0-31.0 [facility] HbdupauFDXPRQQAEQ6732-42-02 09:32:0032.9[facility]HE[facility] 2019-11-27 09:32:0016.7[facility] BayezlhPSBTURACUR9208-19-21 09:32:62213Biuvdmkp QndbfuoSUJLYKETJU7071-17-45 09:32:009.8[facility] TdtvwwyJUVVFG1370-96-62 09:18:00 167[facility] YmznhayKTKZFM1449-34-87 09:18:01725Mdctnwlh AoztoqxNJIHNY9739-72-82 09:18:0050[facility] PqrnyydNCWCUI5824-22-35 09:18:00 Test Item Value Reference Range Interpretation Comments CHD Risk (test code = CHD Risk) 3.02 1 3.90-5.80 [facility] FiwrphuHTTDLU7767-33-12 09:18:0068[facility] KktlcmiFRAYLR8358-52-93 09:18:00 Test Item Value Reference Range Interpretation Comments VLDL (test code = VLDL) 33 1 [facility]annSPECIAL FOOOHHOAQ1685-63-07 09:18:008.5[facility] RDTDDPQMDE9688-63-10 03:47:000.45[facility]annCHEM CZYLI5509-89-15 12:04:00 132[facility]annCHE[facility] QKVBR5039-45-96 12:04:0019[facility]annCHE[facility] PANEL 2019-11-24 12:04:000.76[facility]annCHE[facility] URIFA4077-53-08 12:04:70285Kxdlwwas HermannCHEM NKNLE2537-49-79 12:04:003.7[facility]annCHEM QHHOU7838-10-09 12:04:42997Dbkukopv [facility]CHE[facility] TBGNI0789-29-70 12:04:0027[facility]annCHE[facility] DHHPA1006-34-02 12:04:009.7[facility]annCHE[facility] ADJRK0099-09-68 12:04:008.7 [facility]CHE[facility] YXOIQ1874-91-95 12:04:0079[facility]annHEMATOLOGY 2019-11-24 12:04:0090.7[facility] TyhugruBIUQDVSMOJ4826-82-25 12:04:006.4[facility] MmuujezWNBQWHGQDD5407-53-79 12:04:002.1[facility] XlzexrfZHJNFLEWYS5336-59-60 12:04:000.3[facility] NhtvomqZWNPWZKXFF1030-04-30 12:04:000.5[facility] RCKLZCCQUD8389-66-11 12:04:0015.1[facility] VwfgfrqDYXJULUTRD0962-37-65 12:04:00 1.1[facility] GwvzmnwMLEBLEGNKX5640-82-81 12:04:000.3[facility]annHEMATOLOGY 2019-11-24 12:04:000.1[facility] HntnkivZBKYJAMMLH5385-00-50 12:04:0016.7[facility] UhbkkryDTKNNIDZWX5664-73-97 12:04:005.00[facility] KrieyxvWTHNDPVPAN5609-41-24 12:04:0015.1[facility] NxvygdsOBXYCSYWEN3760-59-50 12:04:0045.1[facility] RJVIMAHZTS9872-55-37 12:04:0090.2[facility] JpxzdzrTFKTZVJIKY9627-28-19 12:04:00 Test Item Value Reference Range Interpretation Comments MCH (test code = MCH) 30.1 pg 27.0-31.0 [facility] JbkqcybSSCQGIJBVT0726-13-29 12:04:0033.4[facility]HE[facility] 2019-11-24 12:04:0016.3[facility] LzriagmCZRFENEOPF7916-54-82 12:04:38329Qmsivrgo PaitlviSLNIMBDKZE7370-82-58 12:04:009.6[facility]annCHEM KKGBB3955-59-41 16:14:52959Frcdqrvq [facility]CHE[facility] KJMEJ3026-25-39 16:14:0018[facility]annCHE[facility] STRZR2018-65-22 16:14:000.96[facility]annCHE[facility] ZLPCS8572-12-59 16:14:14266 [facility]annCHE[facility] ILJBK5182-40-35 16:14:004.3[facility]annCHEM PANEL 2019-11-23 16:14:67728Pvmbkrev [facility]annCHEM RRQPZ5984-79-91 16:14:0026[facility]annCHEM SEMIO4010-65-53 16:14:0010.3[facility]annCHE[facility] KKGVT5599-57-66 16:14:008.8[facility]annCHEM KHBEK1623-71-22 16:14:0059[facility] LMOMTFFJAG8353-97-12 09:51:0081.3[facility] AvtevzrWTPTIHBJNK1026-66-03 09:51:00 11.5[facility] CysgdacBFJKSRRWWE9473-36-75 09:51:005.4[facility]annHEMATOLOGY 2019-11-23 09:51:000.8[facility] SsssnzgQTISFNHLCD5071-65-21 09:51:001.0[facility] HhggouiJHJGRYGDLH3457-38-60 09:51:0015.8[facility] MathpjaPDCBKBIARS8138-64-41 09:51:002.2[facility] KjcbssnYPNCFALUEI6992-04-80 09:51:001.1[facility] AMPNJBGCMS0884-30-45 09:51:000.2[facility] PivnwjeCHJDLBBVIJ5887-77-43 09:51:000.2 [facility] ZyfuoaxHBKSLAKXMI1048-19-03 09:51:0019.4[facility]annHEMATOLOGY 2019-11-23 09:51:005.40[facility] JnvpbxkOZXPCSJQKU2481-37-16 09:51:0016.1[facility] KamfbfhOEWKYJGEDT3673-73-89 09:51:0049.1[facility] SqxumddNUSXBISOSG8502-99-24 09:51:0091.0[facility] LfuzmfgYWNJHWSNOB3389-23-21 09:51:00 Test Item Value Reference Range Interpretation Comments MCH (test code = MCH) 29.9 pg 27.0-31.0 [facility] TeczazkUJDYMKTFID7144-26-43 09:51:0032.9[facility]annHEMATOLOGY 2019-11-23 09:51:0016.7[facility] ZdhssgoTEIIXQIVMM8356-27-73 09:51:67081Rlxizxvx QuvxeecVTPBEXNRZG1198-09-74 09:51:009.8[facility]annCARDIAC FNGLDEX8828-96-64 02:28:000.04[facility]annCHEM TIBJO1358-38-27 02:28:001.7[facility] TFRSCSQHJM8450-18-41 16:05:00Not Detected (11/22/19 11:05 AM)[facility]annCHEM RMAIA9804-50-91 12:35:002.6[facility]UR[facility] AND OVFNS2104-84-24 12:20:00 Veronique *ABN*(11/22/19 7:20 AM)[facility] RDJBI4955-63-83 12:20:00 Slight *ABN*(11/22/19 7:20 AM)[facility] NGOIO0246-82-25 12:20:00 Test Item Value Reference Range Interpretation Comments UA Spec Grav (test code = UA Spec 1.035 1 Grav) [facility] RXNPI4179-78-94 12:20:00 Test Item Value Reference Range Interpretation Comments UA pH (test code = UA pH) 5.0 1 5.0-8.0 [facility] HLBPZ6215-49-10 12:20:00Negative *NA*(11/22/19 7:20 AM) [facility] HSBMG3038-31-82 12:20:00Negative (11/22/19 7:20 AM) [facility] JVBIF0511-76-14 12:20:002.0[facility] QZVRO1224-22-94 12:20:00Negative (11/22/19 7:20 AM)[facility] DXYYS7183-08-25 12:20:00Negative (11/22/19 7:20 AM)[facility] CKZLQ6929-83-18 12:20:001[facility] CSGZY8594-02-42 12:20:007 [facility] WIUBB0793-69-82 12:20:004[facility]annHEMATOLOGY 2019-11-22 11:40:57 Test Item Value Reference Range Interpretation Comments PT (test code = PT) 12.4 s 12.0-14.7 [facility] DkurhwiSJEWFBOHIM1491-23-65 11:40:57 Test Item Value Reference Range Interpretation Comments INR (test code = INR) 0.92 1 0.85-1.17 [facility]IatduqnLHWJZFNNDT0401-84-02 11:40:57 Test Item Value Reference Range Interpretation Comments PTT (test code = PTT) 25.1 s 22.9-35.8 [facility] CenterOnyiqbuEHTRHKBWDY5174-52-81 11:40:57 Test Item Value Reference Range Interpretation Comments ACT (TEG) Rapid (test code = ACT (TEG) 89 s 86-118 Rapid) [facility] CenterBtfqkqpYJYQGPSBQE4480-16-56 11:40:57 Test Item Value Reference Range Interpretation Comments Split Point Rapid (test code = Split 0.3 min Point Rapid) [facility] CenterAffafshLQQTLMTLGP4934-40-70 11:40:57 Test Item Value Reference Range Interpretation Comments R-time Rapid (test code = R-time 0.4 min 0.4-0.7 Rapid) [facility] CenterWgtcdvpYYCQHWITZC2894-36-34 11:40:57 Test Item Value Reference Range Interpretation Comments K-time Rapid (test code = K-time 1.3 min 0.6-2.3 Rapid) [facility] CenterHcnpaexMHXHNHJMBO8133-19-31 11:40:57 Test Item Value Reference Range Interpretation Comments Angle Rapid (test code = Angle 75 degrees 64-80 Rapid) [facility] CenterGexyfoiVUPRYHDKFE4362-69-56 11:40:57 Test Item Value Reference Range Interpretation Comments Max Amplitude Rapid (test code = Max 64 mm 52-71 Amplitude Rapid) [facility] CenterTzldvjcQHROHRIPAB1849-98-93 11:40:579.0[facility]annHEMATOLOGY 2019-11-22 11:40:570.0[facility] BzhyucoVNIBESQQIR1628-01-86 11:40:57Normal (11/22/19 6:40 AM)[facility] HfhfuxeVISVYVRRKO4481-25-28 11:40:57Normal (11/22/19 6:40 AM)[facility] PjuoukkDXBRXUCRPT8564-53-83 11:40:5777.5[facility] YXLIJLNWJD8705-43-85 11:40:5714.2[facility] AblawpbYZFMLLFUPA6478-53-81 11:40:57 6.8[facility] PpcwweeLQHYNOZSZH1416-54-84 11:40:570.2[facility]annHEMATOLOGY 2019-11-22 11:40:571.3[facility] TqlvdafQHAOKKPGZW4437-68-23 11:40:5716.9[facility] MwdxdzlNDUNHONYSY8928-38-51 11:40:573.1[facility] CrjlwtdGJIMLADNAD6967-41-92 11:40:571.5[facility] PnonivrQGFUFGGLCT7213-02-21 11:40:570.1[facility] XHXUMESYQX3070-05-08 11:40:570.3[facility]annBL[facility]OD BANK MMQKXNT3407-43-91 10:56:00Negative (11/22/19 5:56 AM)[facility]annCARDIAC PUBZOVD0164-28-23 10:52:41730Ebpgbugb HermannCARDIAC MPFDZEL5249-24-45 10:52:330.05[facility]annCHEM UJWXQ1467-84-98 10:52:335.8[facility] HermannCHEM USCHE9592-09-99 10:52:332.4[facility]annCHEM UQLJG3979-86-92 10:52:49127Vzstocun HermannCHEM PDSJI8902-55-75 10:52:21417Yzxorbbx HermannCHEM TBNQR1337-78-19 10:52:331.2 [facility]annCHEM DAJPV9252-38-38 10:52:330.3[facility]annCHEM PANEL 2019-11-22 10:52:330.9[facility]annCHEM SNRGR3961-19-21 10:52:333.4[facility] HermannCHEM PZUCN5914-17-08 10:52:33 Test Item Value Reference Range Interpretation Comments A/G Ratio (test code = A/G Ratio) 0.7 1 0.7-1.6 [facility]annCHEM TDAHA4150-09-23 10:52:80739Mxfirujt HermannHEMATOLOGY 2019-03-04 17:02:0060.1[facility] JsypgvvHGMPSYSJWK3113-15-79 17:02:0032.3[facility] UksfrihRBHUSWGMDQ4093-86-49 17:02:005.9[facility] AxgdbfhMJPYHJGFOX6156-91-00 17:02:000.7[facility] VqrkjtrZMRHZFXLBG2398-92-93 17:02:001.0[facility] OLGGGUTPQS0943-55-28 17:02:004.3[facility] UnlztbzYYJDKJZCOJ8683-78-59 17:02:002.3 [facility] FbcywrhCPCSGVRDPP4472-05-16 17:02:000.4[facility]annHEMATOLOGY 2019-03-04 17:02:000.1[facility] RpegrkaNGXOEEFBXC4226-76-96 17:02:002[facility] QwbwnowZPQDHUEAFK5301-43-87 17:02:007.2[facility] BlbricyTHOJCMXENO3796-67-55 17:02:003.76[facility] NowwrdjIPPSDGEZIB1373-24-63 17:02:0012.1[facility] YPQGCUXYNT9599-60-45 17:02:0036.8[facility] CpqyjzkBNCXJZRTPP0098-44-53 17:02:00 97.9[facility] YqbxrzyNVYTOIWXKY4016-87-06 17:02:00 Test Item Value Reference Range Interpretation Comments MCH (test code = MCH) 32.1 pg 27.0-31.0 [facility] NkgfhdeOHSGDVGUUU7083-71-19 17:02:0032.8[facility] HermannHEMATOLOGY 2019-03-04 17:02:0016.7[facility] OixoxohXSVQYJQGHZ0969-29-53 17:02:10829Yyvncvrv MlrghtcDUFGBMLUFL9130-35-01 17:02:008.9[facility] ImuxdkhLAEGRGKZOE2748-46-76 17:02:00<2.9[facility]annBLOOD BANK HFUYGYW6137-09-58 12:49:00Negative (02/26/19 7:49 AM)[facility] SihxmaeHSAFMZUOEF5293-54-12 09:11:0067.8[facility] KbazxwgAQFOQJNFIL5020-42-95 09:11:0022.9[facility] LexntflDMVIIMQSGF0810-02-79 09:11:007.8[facility] YmruswmVKATUAXSJD8475-53-59 09:11:000.4[facility] YOPPTZKAMY1577-46-56 09:11:001.1[facility] RsacrhpMNNACNPSOS0618-49-54 09:11:006.3 [facility] RbkqgxuUAWZEBPWTK5684-25-53 09:11:002.1[facility] HermannHEMATOLOGY 2019-02-25 09:11:000.7[facility] CwcrxmpVTRUTREETF3818-64-97 09:11:000.1[facility] KlcyreuFLIXMURBSH4740-19-96 09:11:001+ *ABN*(02/25/19 4:11 AM)[facility] UZBLEWCNHS0874-84-55 09:11:009.2[facility] YrtayumKTUZLJESPI5404-13-92 09:11:00 3.50[facility] VensbooQFSHPOSWQZ3725-10-06 09:11:0011.5[facility] HermannHEMATOLOGY 2019-02-25 09:11:0035.5[facility] ZbjejtlSFOWLZFKQD9322-88-04 09:11:09714.5 [facility] XgwsdpaUUMLGRJCSI7173-49-97 09:11:00 Test Item Value Reference Range Interpretation Comments MCH (test code = MCH) 32.7 pg 27.0-31.0 [facility] VvfqnddOADJCPOOMV8776-37-61 09:11:0032.2[facility] HermannHEMATOLOGY 2019-02-25 09:11:0017.4[facility] CvgkdcwCVRGEQUREL1654-00-11 09:11:81609Qztirshj BtbvboaZMECMHSHRG5726-21-68 09:11:009.2[facility] HermannCHEM ZQDBK1124-14-37 10:17:50875Xiirbmmi HermannCHEM XGYRG6387-02-46 10:17:0020[facility] HermannCHEM BUXEH7943-85-30 10:17:000.89[facility]annCHEM VDBPC7780-37-20 10:17:63226 [facility]annCHEM CDOAZ3157-10-42 10:17:004.3[facility] HermannCHEM PANEL 2019-02-22 10:17:02194Rbrzoowf HermannCHEM NOVHN2457-08-27 10:17:0027[facility] HermannCHEM QRIZP5358-58-41 10:17:0013.3[facility] HermannCHEM ULZRU8725-05-76 10:17:008.9[facility] HermannCHEM IVVZO9001-37-95 10:17:0065[facility] XJVVJYNGQL9790-41-16 10:17:0063.7[facility] CvhuagrBIXHQTFAQL8591-62-54 10:17:00 26.8[facility] MkjffqgCWQCUUQUNN5642-98-22 10:17:008.0[facility]annHEMATOLOGY 2019-02-22 10:17:000.4[facility] UcauteoEMXJKBATUO2545-88-62 10:17:001.1[facility] RlsujbwTOLTLAHVSB6194-03-10 10:17:006.4[facility] FbdvqfyOJZMZSCJKW3784-75-12 10:17:002.7[facility] DxlkyhzECDZNWGUEF7204-82-64 10:17:000.8[facility] FFOKEFLNEC7326-92-13 10:17:000.1[facility] GlgmsrkIHYWZQPTAE9068-99-36 10:17:00 10.1[facility] EgekxayZJPKUZCGAB1511-44-82 10:17:003.93[facility]annHEMATOLOGY 2019-02-22 10:17:0012.7[facility] EgpkklcUMFBAOAHNM2618-74-67 10:17:0038.8[facility] BsdvqrcEXLCNOBPHK5446-20-45 10:17:0098.9[facility] RgxrfpoJXTZUDRLRB0956-16-59 10:17:00 Test Item Value Reference Range Interpretation Comments MCH (test code = MCH) 32.4 pg 27.0-31.0 [facility] CxjgnydGAKOLCFAXX3181-24-90 10:17:0032.7[facility]annHEMATOLOGY 2019-02-22 10:17:0017.3[facility] FvohpkpKZSLIZBEVH8336-82-83 10:17:35770Stqilkil UcirdzzVTLQBRQYJY4953-40-44 10:17:009.8[facility] HermannCHEM DZHQG8311-90-05 10:59:0095[facility]annCHEM NFIWA7349-47-69 10:59:0018[facility] HermannCHEM SNRYE1530-30-17 10:59:000.77[facility]annCHEM ELTWC4818-92-27 10:59:01565 [facility]annCHEM CADDS5517-98-16 10:59:004.1[facility] HermannCHEM PANEL 2019-02-21 10:59:90568Mwwlnhwr HermannCHEM EFIAD9405-80-77 10:59:0026[facility]annCHEM UCWCR9984-04-27 10:59:008.5[facility]annCHEM RQXDY8096-40-03 10:59:0078[facility]annCHEM JWCKI2721-15-98 10:59:0012.1[facility]annCHEM GTEBE3515-17-68 10:59:002.0[facility]annCHEM ZIRRL1779-76-16 10:59:003.5 [facility] PtxnrwvXSZKJDGUPODA3594-26-96 09:46:0011.1[facility] HermannELECTROLYTES 2019-02-19 09:46:0073[facility] OquqiemIZHSPILHEUNB3158-24-78 09:46:0021[facility] TmihafcAUJEHWNYGRMH6748-63-92 09:46:000.66[facility] CcrfgmiSMLRQHYOLDTK0067-96-93 09:46:29476Ejekuwaa ZquzmkwATWHZHWHSOPQ9242-90-38 09:46:004.1[facility] FAUUNYFKQKDV0147-74-60 09:46:95005Iounmmpn KnkpmifNRZHFOBJKCXI7527-81-87 09:46:0026[facility] FtowieoAMXIAHBAMOOL9928-30-95 09:46:008.6[facility] JLTWOIJWQEBY3614-30-68 09:46:002.1[facility] MphmfyeAQFSLAOLCTQO1666-28-90 09:46:003.0[facility] BrwpdirSKIJMKDAAFYK7393-11-63 09:46:0088[facility] QCKIYSGAJS1522-23-53 09:46:000.1[facility] HermannCHEM SYGVD9676-81-82 08:45:002.4 [facility]annCHEM LOCDR9925-03-11 08:45:005.0[facility]annHEMATOLOGY 2019-02-18 08:45:000.0[facility] ZmuchgpXBMMDOINPP4516-50-16 08:45:002.0[facility] SkfedskGFGKEHEYEH9557-07-81 08:45:000.0[facility] UnltaqeAOKIOCKTPH2995-35-49 08:45:001[facility] NrtulcjKVLVQYIFZC8176-42-57 08:45:00Normal (02/18/19 3:45 AM) [facility] VzverytTWMUVUJADT9362-65-37 08:45:001+ *ABN*(02/18/19 3:45 AM)[facility] JjmlmnlDDETRKOIGU7580-00-29 02:24:0018.8[facility] KriuqiuXPVGSYEFDH8253-21-24 02:24:00 Test Item Value Reference Range Interpretation Comments Roya Khoa TND (test code = Morgano Tr 2200 1 TND) [facility] AujmqorYXEJPYHYHT4228-92-50 07:22:001.0[facility] HermannHEMATOLOGY 2019-02-16 07:22:002.0[facility] LasmjifRFSTBLQUMD1021-14-97 07:22:003.0[facility] TgpogmjQJXBGNMUAQ3088-10-51 07:22:000.0[facility] BasvetwGXPWDIRNOV6353-42-41 16:09:000.2[facility] HfgbskuHKWPYOUQAG3305-54-10 16:09:000.0[facility] SCAIZMJWPL7321-88-01 16:09:001.0[facility] LhtjomqDVJMXGXTKX7857-85-68 16:09:001.0 [facility] MpwrgmmZVEEAZUBFX7007-15-68 16:09:000.0[facility]annHEMATOLOGY 2019-02-15 16:09:002+ *ABN*(02/15/19 11:09 AM)[facility]annHEMATOLOGY 2019-02-15 16:09:001+ *ABN*(02/15/19 11:09 AM)[facility]annHEMATOLOGY 2019-02-13 10:40:000.4[facility] NylygezMQCRWOTYZN3721-61-87 10:40:001+ *ABN*(02/13/19 5:40 AM)[facility] JshlpcrXXIJRLEKAR9367-03-44 20:53:0096.6[facility] HermannCHEM XVRWE6793-12-10 07:43:001.6[facility] HermannCHEM LFMHC9099-37-12 01:51:002.4[facility] XmdqmndGYIECVCKNU4592-02-41 01:51:0012.1[facility] TRIMETHOPRIM+SULFAMETHOXAZOLE:SUSC:PT:ISOLATE:ORDQN:NUM6057-13-01 18:43:00 Staphylococcus aureusMem[facility] TRIMETHOPRIM+SULFAMETHOXAZOLE:SUSC:PT:ISOLATE:ORDQN:LOX7146-20-02 18:43:00 Enterococcus SpeciesMem[facility] TRIMETHOPRIM+SULFAMETHOXAZOLE:SUSC:PT:ISOLATE:ORDQN:ASF6324-17-77 18:43:00 Proteus mirabilisMemorial AohegqfOYGKAOEMMB5736-53-49 14:43:0014.3[facility] HermannCHEM CSAWZ7924-67-84 03:40:001.6[facility] HermannCHEM BEEOK6039-43-09 14:04:002.1[facility] WedfjxzDGGJLOAOTP6372-43-47 14:04:00Normal (02/09/19 9:04 AM) [facility] VsbrwdfHAHWBCMIMD6151-12-12 14:04:00Normal (02/09/19 9:04 AM)[facility] HermannPARATHYROID RCXVGNH2465-39-05 14:04:001.06[facility] HermannPARATHYROID BNWLAMU0526-52-40 14:04:001.04[facility]annUR[facility] AND JVZKE3302-22-41 08:55:00 Yellow *NA*(02/08/19 3:55 AM)[facility] PZDUS8595-59-41 08:55:00 Marked *ABN*(02/08/19 3:55 AM)[facility] XBVTJ3986-24-50 08:55:00 Test Item Value Reference Range Interpretation Comments UA Spec Grav (test code = UA Spec 1.022 1 Grav) [facility] KSZFF4101-81-58 08:55:00 Test Item Value Reference Range Interpretation Comments UA pH (test code = UA pH) 5.0 1 5.0-8.0 [facility] WBIKX4675-88-33 08:55:00Negative *NA*(02/08/19 3:55 AM) [facility] ZFLUE8986-75-54 08:55:00Negative (02/08/19 3:55 AM) [facility] RJWNG2258-13-44 08:55:00<1.0[facility] CVXOI6621-37-53 08:55:00Negative (02/08/19 3:55 AM)[facility] AUPYW6219-63-17 08:55:00Negative (02/08/19 3:55 AM)[facility] HNYGO1320-56-32 08:55:0013[facility] MKASR9271-30-86 08:55:004 [facility] JKWXC1342-97-51 08:55:005[facility] CHEM 2019-02-08 08:55:0030[facility]UR[facility] FNKM8419-72-34 08:55:25496.00[facility] HermannCARDIAC AVBPAON2931-79-55 06:59:00<0.02[facility]annHEMATOLOGY 2019-02-08 06:59:0095[facility] QrvakkdSSDVUROJIO7079-86-75 06:59:0081.9[facility] HermannPARATHYROID IEGMNSX8761-26-05 06:59:001.19[facility] HermannPARATHYROID YOTGZME9881-92-49 06:59:001.17[facility] HermannCHEM QORQO0494-86-53 01:53:56404 [facility]annPARATHYROID GTLULJF7205-54-16 06:52:001.08[facility] PARATHYROID BCLYHWP9069-19-59 06:52:001.09[facility] HermannANEMIA BOLXC2676-46-30 19:48:60666Lonfpyok HermannANEMIA PXSLC9820-83-05 19:48:0016.9[facility] CHEM AQATI9688-02-94 19:48:0013.0[facility] HermannCHEM QWPCX3222-30-00 19:48:00 172.6[facility] AuinjlsLOQLQLKBGD8983-26-94 19:48:0017.3[facility] HermannIMMUNOLOGY 2019-02-06 19:48:48116Ipkplzyh HermannSPECIAL SBFELJTKB6904-68-31 19:48:008.5 [facility]annCARDIAC UCOXWLZ9852-72-59 19:43:000.03[facility] HermannCARDIAC KVJFMBF5202-73-32 19:43:97479Tmghiucj HermannCARDIAC LAKDZXX9147-43-33 19:43:00 1.5[facility] HermannCARDIAC AJDMKPX2011-87-36 19:43:00 Test Item Value Reference Range Interpretation Comments CK MB Index (test code = CK MB Index) 0.8 1 <=2.5 [facility]annCHEM DRUWG7189-33-07 19:43:00 Test Item Value Reference Range Interpretation Comments B/C Ratio (test code = B/C Ratio) 16 1 6-25 [facility]annCHEM IEGGW7393-38-87 19:43:006.4[facility] HermannCHEM PANEL 2019-02-05 19:43:002.2[facility] HermannCHEM FJNKS1690-46-69 19:43:004.2[facility] HermannCHEM LDKNA4357-60-86 19:43:00 Test Item Value Reference Range Interpretation Comments A/G Ratio (test code = A/G Ratio) 0.5 1 0.7-1.6 [facility]annCHEM UNDBK7777-90-70 19:43:25130Lruqavtz HermannCHEM PANEL 2019-02-05 19:43:89124Sudbjofx HermannCHEM OCPTQ8445-85-89 19:43:000.6[facility] HermannCHEM CQSJT2730-80-86 19:43:62623Euckghzi HermannCHEM ENQYQ6292-22-63 19:43:006.5[facility]UR[facility] AND NRTJM3562-73-15 19:43:00Dark Yellow *NA*(02/05/19 2:43 PM)[facility] RFZGL2994-37-95 19:43:00Marked *ABN*(02/05/19 2:43 PM)[facility] ZNOVK0843-70-21 19:43:00 Test Item Value Reference Range Interpretation Comments UA Spec Grav (test code = UA Spec 1.022 1 Grav) [facility] UELYT0189-83-01 19:43:00 Test Item Value Reference Range Interpretation Comments UA pH (test code = UA pH) 6.0 1 5.0-8.0 [facility] FKNNS3428-41-02 19:43:00Negative *NA*(02/05/19 2:43 PM) [facility] VDBTC2388-52-17 19:43:00Negative (02/05/19 2:43 PM) [facility] MIBOW9983-26-44 19:43:002.0[facility] AND WQDSZ8919-67-72 19:43:00Negative (02/05/19 2:43 PM)[facility] STOOL 2019-02-05 19:43:00Negative (02/05/19 2:43 PM)[facility] STOOL 2019-02-05 19:43:004[facility]annUR[facility] AND GUERW3365-74-34 19:43:002[facility] ZlbkyleNTEPYMQWWY3790-41-43 10:01:0012.0[facility] BnclydcTJPQOYMYPQ4276-08-21 10:01:002.2[facility] YhborpcLMDBKFWAGX0082-31-07 10:01:000.8[facility] IRPAOWODTX6258-31-17 10:01:0078.0[facility] DaycrswYJQAPOGPYP5898-53-12 10:01:00 0.0[facility] PduhzfgHYSQIUWXCI3241-90-68 10:01:0014.0[facility] HermannHEMATOLOGY 2019 10:01:005.0[facility] HwxmgqlGUMNKEYXWA2267-21-76 10:01:001.0[facility] LrwgcmkMOMYEKPVBN9820-69-58 10:01:002.0[facility] VkxnmzsGBXFJLBLIK4202-88-31 10:01:000.0[facility] GdkfkhfEPDPPFSWQY1516-26-28 10:01:003[facility] YOLUOENNCB6707-80-03 10:01:001+ *ABN*(01/09/19 5:01 AM)[facility]annHEMATOLOGY 2019 10:01:001+ *ABN*(01/09/19 5:01 AM)[facility] IwcdqxoOTAOIMMCRY4611-99-35 10:01:00Moderate *ABN*(01/09/19 5:01 AM)[facility] TodjhcsAOAQEUUIPQ9183-63-84 10:01:0015.4[facility] NcwzunaSFBEDWFYEF6820-10-41 10:01:002.79[facility] TQUOQNAUGW6685-04-95 10:01:009.6[facility] BdtqxptJUNELZEOWV5079-35-88 10:01:00 29.3[facility] BayvmuvOGTHXVKIEH8613-09-02 10:01:07930.8[facility] HermannHEMATOLOGY 2019 10:01:00 Test Item Value Reference Range Interpretation Comments MCH (test code = MCH) 34.5 pg 27.0-31.0 [facility] EiximpnNOEBNRXEPC4246-95-86 10:01:0032.9[facility] HermannHEMATOLOGY 2019 10:01:0022.7[facility] ZewqwwiOSZGQKJVWL6062-00-46 10:01:35192Qpvisnaq JbjqkgrIDXXEAXIZE1489-86-90 10:01:009.8[facility] HermannCHEM GAVEA8665-05-97 10:31:0079[facility] HermannCHEM LLCUO1856-60-11 10:31:0027[facility] HermannCHEM PAYJY7502-00-25 10:31:000.77[facility] HermannCHEM XFEBJ6895-42-07 10:31:97002 [facility]annCHEM KWPSH0037-86-91 10:31:004.2[facility] HermannCHEM PANEL 2019-01-07 10:31:01171Iohdhzvb HermannCHEM PHQVN4699-35-86 10:31:0028[facility] HermannCHEM XGNJD5150-48-37 10:31:0012.2[facility] HermannCHEM BBEIO5081-82-44 10:31:008.6[facility] HermannCHEM VUVZP8914-90-10 10:31:0078[facility] HermannCHEM KHPMK6506-62-19 10:31:002.1[facility] HermannCHEM DRVPD0935-82-88 10:31:003.7 [facility] ZzgjedkARIDOZUOMK3217-20-60 10:31:0014.2[facility] HermannHEMATOLOGY 2019-01-07 10:31:006.1[facility] HclixuyRDQXNZTPRI5425-45-43 10:31:000.4[facility] YqmhewbFYBPUNTTPV3445-10-76 10:31:000.2[facility] VgcczgoCSLHSEIRLW1967-72-75 10:31:0067.0[facility] QfcwjkrHWAOPQGHLT9222-31-98 10:31:000.0[facility] DCPTIJIMEK1877-93-64 10:31:0029.0[facility] MxogwjnLAHFQWIZDV8574-56-77 10:31:00 2.0[facility] IterfjdYYGRXONUAJ7148-68-64 10:31:001.0[facility]annHEMATOLOGY 2019-01-07 10:31:001.0[facility] VpydlghIKXLHRVBYH5124-14-74 10:31:000.0[facility] OpnjacoMXTJLCJPYX5307-13-41 10:31:002[facility] SaumgelTERQWNRRHV7333-39-38 10:31:00Normal (01/07/19 5:31 AM)[facility] DctzulzWSGBBXQEFK8690-06-03 10:31:001+ *ABN*(01/07/19 5:31 AM)[facility] ByngbhuTGDHFIIPCI7105-76-90 10:31:001+ *ABN*(01/07/19 5:31 AM)[facility] IozgfzdAMKLPQNXSE8194-46-64 10:31:00Moderate *ABN*(01/07/19 5:31 AM)[facility] UzygqcjCKRMGOOAQL0272-42-60 10:31:0021.2[facility] OmhwsnzJGKQNBCKPB3626-69-06 10:31:002.83[facility] EiohhdcIVQTEZELMJ1441-40-67 10:31:009.6[facility] CmkiutiWSTLLWAKOR9977-41-35 10:31:0029.6[facility] JHZKNEDGFY6724-38-64 10:31:05025.5[facility] InlnwpcJGTKKYOVSE2896-60-82 10:31:00 Test Item Value Reference Range Interpretation Comments MCH (test code = MCH) 33.9 pg 27.0-31.0 [facility] ClitldkVUTLPVEYIB3855-08-83 10:31:0032.4[facility]annHEMATOLOGY 2019-01-07 10:31:0019.9[facility] GyiulpeDKTYKIHCVC0182-04-88 10:31:49861Mrqnhtlp KjngkdmPPYBDRQQUS8276-37-32 10:31:0010.6[facility] HermannCHEM CPSES9471-69-06 19:41:07421Xexcssvy HermannCHEM VMXJW0833-83-99 19:41:0027[facility]annCHEM RGNZF5845-61-73 19:41:001.34[facility]annCHEM BBIML2461-82-42 19:41:07601 [facility]annCHEM FEOKJ1196-26-76 19:41:004.0[facility]annCHEM PANEL 2019-01-06 19:41:76940Ymekdgtz HermannCHEM KZOAT0661-93-81 19:41:0027[facility]annCHEM AYUNT8561-93-49 19:41:008.3[facility]annCHEM RINCI0524-29-83 19:41:0040[facility]annCHEM KBJKJ2425-33-78 19:41:0016.0[facility] HGUTWODVGZ9996-94-13 19:41:0084.9[facility] TrovdfrFJUYBZDQDQ8168-04-70 19:41:00 11.4[facility] KmkxvzyYLIZHDNEKK0508-44-76 19:41:002.9[facility]annHEMATOLOGY 2019-01-06 19:41:000.2[facility] NhieulrTBOCSIQFIZ4523-22-13 19:41:000.emorial XqyqehgDNUPBKQKHE2395-95-90 19:41:0012.0[facility] UtnzgitYVPIGLQUDI4321-35-15 19:41:001.6[facility] GhnwmrqZLBPGRBNCW9026-11-87 19:41:000.4[facility] HWLLXYZPDJ1675-93-05 19:41:000.1[facility] ZrmyzkzHINHQHZEBN5580-28-17 19:41:001+ *ABN*(01/06/19 2:41 PM)[facility] PaviuvmTPNPMCYNZP3754-36-23 19:41:0014.1[facility] HfkjbjlTGXCSIUNNW4752-64-79 19:41:002.86[facility] TnrfmyjWMCLZPUWRU4150-17-28 19:41:009.7[facility] GvymcjrGHAEMXFSQT4795-89-42 19:41:0029.5[facility] UIORKWPJAI3004-86-40 19:41:52424.3[facility] GdnepqkHALQEZUQGK9859-75-01 19:41:00 Test Item Value Reference Range Interpretation Comments MCH (test code = MCH) 33.8 pg 27.0-31.0 [facility] IdgqhhmCPZQRPSKUF7975-67-19 19:41:0032.7[facility]annHEMATOLOGY 2019-01-06 19:41:0020.1[facility] OtutktaYEFUSRAALG9371-98-81 19:41:02462Oslwjklv NkadzocCLVMYOCDKF9197-07-67 19:41:0010.2[facility] HermannCARDIAC ENZYMES 2019-01-04 17:50:0098[facility] GjqudtjOMVFESYHAVVI1916-08-60 17:50:0012.0[facility] UhtvmkrFYXIVBQGKGSD7311-87-50 17:50:0083[facility] OsehmmfMQFDSFHGDOGJ1362-35-62 17:50:0023[facility] JxvnadlYFYEOVQNTTYF4944-69-64 17:50:000.88[facility] PIVCYUPRVVEU6048-86-50 17:50:45449Xsdndpds MbeggnjOTMHXPACGEEA8247-94-68 17:50:004.0[facility] FumfxjhDFQSMBKVJAYE0402-65-57 17:50:53594Atpl[facility]va [facility] LBRPIHMAVEYJ0721-44-68 17:50:0025[facility] QgnkyspKUAMKWBRUFQL4217-44-91 17:50:00 8.5[facility] OmkelcfVMHBTJQJXAMB9348-33-39 17:50:0066[facility]annHEMATOLOGY 2019-01-04 17:50:000.2[facility] PlucschQBTQCXSSXH4851-69-53 17:50:003.0[facility] RzgdfwsSKCNTCHUBQ8171-95-39 17:50:001.0[facility] UukxxjnBIQLPOREOI8361-03-93 17:50:001.0[facility] SrjxvluPDTBZYGGSF6403-61-64 17:50:000.0[facility] AQYXTEAHIS0459-39-42 17:50:009[facility] WkxgfoeICDODXOROH0736-38-96 17:50:00 Normal (01/04/19 12:50 PM)[facility] RsedjxcEZLJYNJMTK4304-08-43 17:50:001+ *ABN*(01/04/19 12:50 PM)[facility] AkmbgrxIOXSNIJFUQ6138-11-66 06:25:000.1[facility] AyqkkokASQKNZIQVB3258-50-63 06:25:000.7[facility] UxithwbOQZLHTSAIP9996-79-34 06:25:000.2[facility] HermannPARATHYROID AZWRLDW8456-56-25 06:25:001.08[facility] HermannPARATHYROID SUVKWOZ1909-23-22 06:25:001.04[facility]annHEMATOLOGY 2018-12-31 07:09:003.0[facility] HermannCHEM VIKXM3656-20-32 09:20:002.1[facility]annCHEM MQRPS4794-56-96 09:20:002.7[facility] EbwkstzSROJBTACJO3983-87-62 09:20:50734Lrxwcmrs JskrwcvLPSHKCCAQM6678-42-72 09:20:000.1[facility] PARATHYROID IDBJASQ0824-91-97 09:20:001.08[facility] HermannPARATHYROID PROFILE 2018-12-30 09:20:001.10[facility] HermannCARDIAC INCEFPB8847-26-84 05:04:000.09 [facility]annCHEM JCLPO3984-06-82 05:04:002.0[facility] HermannCHEM PANEL 2018-12-29 05:04:002.4[facility] GhzrvyhZJWSJEJJAQ4742-51-15 05:04:00Normal (12/29/18 12:04 AM)[facility]TbdgjhgRHLJUKMWPE8219-62-11 05:04:00 Test Item Value Reference Range Interpretation Comments INR (test code = INR) 1.02 1 0.85-1.17 [facility] CenterJawuilmOFZJPLOOHK9359-89-67 05:04:00 Test Item Value Reference Range Interpretation Comments PT (test code = PT) 13.2 s 12.0-14.7 [facility] CenterIyrfrtuKCXUVCNAFZ5734-38-17 05:04:00 Test Item Value Reference Range Interpretation Comments PTT (test code = PTT) 31.0 s 22.9-35.8 [facility] CenterKlleujgMXEWBLKPQW4545-44-47 05:04:19888Evqwjlsc HermannPARATHYROID IQGPDTP6144-66-96 05:04:001.10[facility]annPARATHYROID VJKENQY3931-81-98 05:04:001.11[facility] HermannCARDIAC TQWGGAE7784-23-21 07:31:000.11[facility] HermannCHEM TFKBZ5904-16-54 07:31:004.7[facility]annCHEM IKGNI9919-10-61 07:31:002.8[facility]annCHEM KYBQV1252-96-07 07:31:0036[facility]annCHEM DYEOW7128-39-76 07:31:0018[facility]annCHEM DEUEM8158-01-86 07:31:0073 [facility]annCHEM BSTGS8485-10-01 07:31:000.7[facility] HermannCHEM PANEL 2018-12-28 07:31:000.2[facility] HermannCHEM FYOLA4764-20-87 07:31:000.5[facility]annCHEM ZWVXN9328-57-20 07:31:001.9[facility] HermannCHEM DRNNP2596-64-62 07:31:00 Test Item Value Reference Range Interpretation Comments A/G Ratio (test code = A/G Ratio) 1.5 1 0.7-1.6 [facility]QcttrsjLLKJFQYNMZ2938-94-08 07:31:001.0[facility]annHEMATOLOGY 2018-12-28 07:31:00 Test Item Value Reference Range Interpretation Comments INR (test code = INR) 1.13 1 0.85-1.17 [facility] NfmhznaDVCHGMYIOR3331-71-15 07:31:00 Test Item Value Reference Range Interpretation Comments PT (test code = PT) 14.3 s 12.0-14.7 [facility] AgmxcixWMXXXRWSJA7862-36-25 07:31:00 Test Item Value Reference Range Interpretation Comments PTT (test code = PTT) 35.5 s 22.9-35.8 [facility]annSPECIAL XBZEMLBRK5598-20-89 07:31:0011.1[facility]annURINE AND DAWHT8944-66-54 11:12:00Negative (12/27/18 6:12 AM)[facility]annCARDIAC ZBGKJXL7914-57-47 05:26:000.06[facility] HermannCHEM ETCXS4105-74-47 05:26:004.7 [facility]annCHEM INDAN3967-43-12 05:26:003.5[facility]annCHEM PANEL 2018-12-27 05:26:0030[facility] HermannCHEM BMGOQ9581-09-51 05:26:0011[facility]annCHEM YSSNQ8413-08-37 05:26:0055[facility]annCHEM RKFUD0204-50-97 05:26:000.5[facility]annCHEM LSVGG8887-10-80 05:26:000.1[facility]annCHEM NVSIX9015-40-15 05:26:000.4[facility]annCHEM OPPXD7778-86-32 05:26:001.2 [facility]annCHEM NIFKS7637-79-57 05:26:00 Test Item Value Reference Range Interpretation Comments A/G Ratio (test code = A/G Ratio) 2.9 1 0.7-1.6 [facility] FtganxySGJEDPYFWR9423-91-60 05:26:00 Test Item Value Reference Range Interpretation Comments PT (test code = PT) 15.8 s 12.0-14.7 [facility] NsusioiMOZYVPYDJQ9118-90-45 05:26:00 Test Item Value Reference Range Interpretation Comments INR (test code = INR) 1.29 1 0.85-1.17 [facility] XjtlycdKOHWJYGYUU3714-76-37 05:26:00 Test Item Value Reference Range Interpretation Comments PTT (test code = PTT) 37.6 s 22.9-35.8 [facility] EtmbxunBHJTJWVXYV1897-05-68 05:26:05515Fmqvmybh HermannCHEM PANEL 2018-12-26 05:48:005.1[facility] HermannCHEM EDPPK6260-44-49 05:48:003.1[facility]annCHEM XOAGN4265-09-15 05:48:002.0[facility]annCHEM HPUHC2227-13-24 05:48:00 Test Item Value Reference Range Interpretation Comments A/G Ratio (test code = A/G Ratio) 1.6 1 0.7-1.6 [facility]annCHEM CBKRC4320-60-35 05:48:0051[facility]annCHEM PANEL 2018-12-26 05:48:0016[facility]annCHEM PGVBW7220-49-40 05:48:0088[facility]annCHEM QMOSP8830-81-23 05:48:000.4[facility]annCHEM GOHNV8937-70-52 05:48:000.2[facility]annCHEM HJPTY0413-83-30 05:48:000.2[facility]UR[facility] AND LMOBD0303-24-45 19:16:00Light Yellow *NA*(12/25/18 2:16 PM)[facility]INE AND HQWPX2163-78-86 19:16:00Slight *ABN*(12/25/18 2:16 PM)[facility]INE AND GAOIP9518-07-36 19:16:00 Test Item Value Reference Range Interpretation Comments UA Spec Grav (test code = UA Spec 1.013 1 Grav) [facility] MTSIX4201-17-25 19:16:00 Test Item Value Reference Range Interpretation Comments UA pH (test code = UA pH) 5.0 1 5.0-8.0 [facility] XQXAE1308-24-15 19:16:00Negative *NA*(12/25/18 2:16 PM) [facility] KAZMZ6379-20-14 19:16:00Negative (12/25/18 2:16 PM) [facility] OGGZL9404-25-09 19:16:00<1.0[facility] VDYVH2584-42-81 19:16:00Negative (12/25/18 2:16 PM)[facility] JQYQK6737-46-05 19:16:00Negative (12/25/18 2:16 PM)[facility] QUWWH4921-93-11 19:16:004[facility] JNOXY8661-52-11 19:16:001 [facility]annCHEM RZCOW2528-95-63 08:58:001.8[facility]annHEMATOLOGY 2018-12-25 08:58:00 Test Item Value Reference Range Interpretation Comments Thrombin Time (test code = Thrombin 17.7 s 15.0-21.2 Time) [facility] XqvmsjxWQMSSYBYDQ0142-59-55 08:58:002.84[facility] HermannBACTERIAL - RXABEZOI8577-36-25 05:22:00Negative (12/25/18 12:22 AM)[facility]annCHEM PANEL 2018-12-25 05:22:002.3[facility] HermannDRUG AZZENF8117-18-04 05:22:00Negative *NA*(12/25/18 12:22 AM)[facility]annDRUG SDREXC8474-87-70 05:22:00Negative *NA*(12/25/18 12:22 AM)[facility]annDR[facility] KTJHLJ6970-60-58 05:22:00Positive *ABN*(12/25/18 12:22 AM)[facility]annDR[facility] PLFJRE6372-16-27 05:22:00Negative *NA*(12/25/18 12:22 AM)[facility]annDR[facility] MDPVWK4382-39-49 05:22:00Negative *NA*(12/25/18 12:22 AM)[facility]annDR[facility] ZVVMJP8376-35-65 05:22:00Positive *ABN*(12/25/18 12:22 AM)[facility]annDR[facility] BCHRGC2176-07-68 05:22:00Negative *NA*(12/25/18 12:22 AM)[facility]annDR[facility] TKGWXK1090-50-43 05:22:00See Note (12/25/18 12:22 AM)[facility] IwdqffbZHNILUHMUZ6099-45-81 05:22:00Negative 7(12/25/18 12:22 AM)[facility] PkferleHJZEAZCANW2063-07-98 05:22:00 Test Item Value Reference Range Interpretation Comments Pat Od Value (test code = Pat Od 0.215 1 Value) [facility] HjzuptqZCEWYYVSNZ3991-11-80 05:22:00 Test Item Value Reference Range Interpretation Comments Pos CO Value (test code = Pos CO 0.400 1 Value) [facility] VYFOK9252-60-07 05:22:00Amber *ABN*(12/25/18 12:22 AM) [facility] AZGOQ2657-38-57 05:22:00Slight *ABN*(12/25/18 12:22 AM) [facility] GFGFJ2803-89-01 05:22:00 Test Item Value Reference Range Interpretation Comments UA Spec Grav (test code = UA Spec 1.029 1 Grav) [facility] QYQXL4380-35-93 05:22:00 Test Item Value Reference Range Interpretation Comments UA pH (test code = UA pH) 5.0 1 5.0-8.0 [facility] RNDHV7293-56-60 05:22:00Negative *NA*(12/25/18 12:22 AM)[facility] OOUEQ9799-31-97 05:22:00Moderate *ABN*(12/25/18 12:22 AM)[facility] ZUFKZ1762-58-13 05:22:004.0[facility]INE AND WOFFJ0587-06-74 05:22:00Negative (12/25/18 12:22 AM)[facility] AND CVFOQ9424-61-61 05:22:00Negative (12/25/18 12:22 AM)[facility]INE AND GDSNU6451-32-35 05:22:003[facility] AND MMEWR3197-71-68 05:22:0037[facility]UR[facility] AND MADKV2785-69-23 05:22:0023[facility]INE AND ZGMHN2576-48-22 05:22:001[facility] VANCOMYCIN:SUSC:PT:ISOLATE:ORDQN:VUU7453-68-82 05:22:00Staphylococcus aureus [facility]annBLOOD BANK ZVUVNZZ3380-86-32 23:54:00Negative 5(12/24/18 6:54 PM) [facility]annCARDIAC VGRBTEI3734-93-04 23:54:0062[facility]annCHEM PANEL 2018-12-24 23:54:0027.0[facility] HermannCHEM WWUIZ8660-79-73 23:54:005.0[facility] HermannCHEM AFKDH3203-27-42 23:54:0011.80[facility]annCHEM JMDJW9251-27-15 16:13:0076[facility]annCHEM NTIJS9925-48-35 16:13:000.79[facility] HermannCHEM EOXDX4656-73-90 16:13:94859Amgpzxvk HermannCHEM ADGIR2455-96-59 16:13:004.2 [facility]annCHEM KDHJM5706-67-32 16:13:0019[facility]annCHEM PANEL 2018-11-29 16:13:009.3[facility] HermannCHEM DIQFB6516-87-01 16:13:88616Vfjkdrtw HermannCHEM GHPBB6687-45-12 16:13:0030[facility] HermannCHEM CNKBE4670-89-86 16:13:92637Hsexbwyp HermannCHEM FJJOA4244-45-68 16:13:0010.2[facility]INE AND SRQBR6681-91-41 15:09:00None Seen (11/29/18 10:09 AM)[facility]INE AND AIQDH3151-63-19 15:09:000.2[facility] AND FGALC3920-89-25 15:09:00Negative (11/29/18 10:09 AM)[facility] GHTLJ0085-50-19 15:09:00Negative (11/29/18 10:09 AM)[facility] SHCOQ0616-87-27 15:09:00Small *ABN*(11/29/18 10:09 AM)[facility] AGCZX0747-77-37 15:09:00Negative (11/29/18 10:09 AM)[facility] KJJGB7458-17-28 15:09:00 Test Item Value Reference Range Interpretation Comments UA pH (test code = UA pH) 5.5 1 5.0-8.0 [facility] CPVAO5671-66-15 15:09:00Negative *NA*(11/29/18 10:09 AM) [facility] SGGJC7241-64-84 15:09:00Negative (11/29/18 10:09 AM) [facility] EZBVI4707-97-16 15:09:00Yellow *NA*(11/29/18 10:09 AM) [facility] VTEIW5901-28-22 15:09:00Slight Cloudy (11/29/18 10:09 AM)[facility] WOBRM8357-99-74 15:09:00>=1.030 *ABN*(11/29/18 10:09 AM)[facility]] CMP W/DVCE9034-15-50 12:32:00 Test Item Value Reference Range Interpretation Comments GLUCOSE; Above 313 mg/dl 65-139 Non-fasting r eference High Threshold interval (test code = 1547-9) UREA NITROGEN 19 mg/dl 7-25 N (BUN) (test code = UREA NITROGEN (BUN)) CREATININE (test 0.80 mg/dl 0.60-0.93 N For patient s >49 years code = of age, the ref erence CREATININE) limit[facility] is approximately 1 3% higher for peopleidentifie d as -Rosette n. eGFR NON- 74 {ML/MIN/1.7} > OR = 60 N ARMENIAN (test code = eGFR NON-) eGFR 86 {ML/MIN/1.7} > OR = 60 N ARMENIAN (test code = eGFR ) BUN/CREATININE NOT [...] mg/dl 0.2-1.2 N Normal (test code = 26262-2) ALKALINE 156 u/l 33-130 PHSPHATASE (test code = ALKALINE PHSPHATASE) AST; Normal (test 34 u/l 10-35 N code = 1916-6) ALT; Above High 71 u/l 6-29 SPECIMEN REC EIVED DATE Threshold (test AND TIME: [id number] code = 1742-6) [facility]] CBC (INCLUDES DIFF/PLT)2018-11-18 12:32:00 Test Item Value Reference Range Interpretation Comments WHITE BLOOD CELL 12.2 3.8-10.8 COUNT (test code = {Thousand/u} WHITE BLOOD CELL COUNT) RED BLOOD CELL 4.89 3.80-5.10 N COUNT (test code = {Million/uL} RED BLOOD CELL COUNT) HEMAGLOBIN; Normal 15.4 g/dl 11.7-15.5 N (test code = 49004-4) HEMATOCRIT; Above 45.8 % 35.0-45.0 High Threshold (test code = 4544-3) MCV; Normal (test 93.7 fL 80.0-100.0 N code = 787-2) MCHC; Normal (test 33.6 g/dl 32.0-36.0 N code = 14043-9) RDW; Normal (test 14.4 % 11.0-15.0 N code = 788-0) PLATELET COUNT; 177 140-400 N Normal (test code {Thousand/u} = 777-3) MPV; Normal (test 11.0 fL 7.5-12.5 N code = 99055-1) ABSOLUTE 36449 4298-0488 NEUTROPHILS (test {cells/uL} code = ABSOLUTE NEUTROPHILS) ABSOLUTE 6841 901-9659 N LYMPHOCYTES (test {cells/uL} code = ABSOLUTE [...] Normal 1.7 % N (test code = 73080-0) EOSINOPHILS; 0.1 % N Normal (test code = 27744-3) BASOPHILS; Normal 0.2 % N (test code = 42926-5) COMMENT(S) (test See Comment Review of p eripheral code = COMMENT(S)) smear con firmsautomated results.SPECIME N RECEIVED DATE A ND [facility] [id number] 10:03:00 PROCEDURE: Chest Radiograph.Clinical Indication: Pneumonia.Comparison: Chest radiograph 09/17/2018.FINDINGS:The chest shows minimal subsegmental atelectasis at the left lung base. Nofocal consolidationis identified. There is left-sided [employer] OFFICER shunt tubing. Thereare calcified granulomata in the upper lobes.The cardiac silhouette is upper limits of normal in size. Degenerative changeinvolves the thoracic spine and shoulders. An old distal right claviclefracture is suspected.IMPRESSION:1. Minimal left lower lobe subsegmental atelectasis.SL:[id number]--Gsmz by: Eleazar Hamilton MDDictated Date/time: 11/18/18 10:49Electronically Signed by: Eleazar Hamilton MD 11/18/1909:52FINAL REPORTUnSpanish [facility] Bone Density DXA [employer] [id number] 10:53:00BONE DENSITY ASSESSMENT: 10/21/2018CLINICAL DATA: Post menopausal [...] was performed 10/21/2018 on the AP L2- J2tukgtn of spine using a Hologic unit. The [...] careprovider is recommended.This exam was interpreted at [id number] for CRISPIN Riojas 15. Betzy Caba M.D., ms/elke:10/21/2018 12:45:40 Supervisor Telephone Answering Service(s): Hailey Cornejo [facility]--Read by: Betzy Caba MDDictated Date/time: 10/21/18 12:45Electronically Signed by: Betzy Caba MD 10/22/1911:45FINAL REPORTUnM[facility] TtrgpixoehUIGUETSIZG8703-97-37 15:20:0010.6[facility] AmuzjyeBXPQSOEBXR3547-04-60 15:20:0091.5[facility] EkxjyebFTMVVBANNW2904-93-57 15:20:0042.9[facility] YOUAYCVATU2007-84-12 15:20:00 Test Item Value Reference Range Interpretation Comments MCH (test code = MCH) 31.0 pg 27.0-31.0 [facility] LvgrzrdYRFYISKTFI6341-59-78 15:20:0014.1[facility] HermannHEMATOLOGY 2018-09-23 15:20:0033.8[facility] GpaqifiMDPISFRREY8365-02-91 15:20:20297Rbitutim GmrahajKUFBMFQKYX6600-40-39 15:20:0014.5[facility] PapxzooQAJXCCVZER8296-41-37 15:20:0010.8[facility] YrrygioJMTXUCLCFJ6033-19-44 15:20:004.69[facility] UMIFPWUHZJ8902-86-39 15:20:000.1[facility] YomgvlyNYPDFKYSYE4811-39-29 15:20:00 70.7[facility] OlwinviFDFXGTKMIR1487-10-81 15:20:0021.8[facility] HermannHEMATOLOGY 2018-09-23 15:20:002.4[facility] HkdmzxkBGLSDBQKLW6418-79-74 15:20:007.6[facility] FbxjpkbHXQDMRFTTN7737-99-51 15:20:000.7[facility] TlgevmlICWKEAMUGH8719-71-54 15:20:006.7[facility] HphjqaaTDLZICWZEN3237-04-83 15:20:000.3[facility] CWOIBILEVT6005-47-55 15:20:000.5[facility] HermannCHEM WJBEQ1815-23-84 10:38:002.2 [facility]annCHEM GILPD1903-72-94 10:38:003.0[facility] HermannCHEM PANEL 2018-09-23 10:38:0069[facility] HermannCHEM GKFXS0489-46-42 10:38:0028[facility] HermannCHEM MLJBN7505-09-75 10:38:01412Nyukewne HermannCHEM RZDFP8306-53-08 10:38:003.8[facility] HermannCHEM VODBF1304-17-32 10:38:62221Xffvdirc HermannCHEM ZHUAD2513-90-30 10:38:009.8[facility] HermannCHEM YAVQN0522-61-65 10:38:008.1 [facility]annCHEM WUXEH5488-24-84 10:38:0023[facility]annCHEM PANEL 2018-09-23 10:38:000.86[facility] HermannCHEM RNOGN6201-68-77 10:38:0043[facility] KazyuszPDXVYUYNSW8029-02-43 10:38:0014.6[facility] KshsoeqSAWHXIHPKL1498-93-10 10:38:0044.7[facility] BqidvunWUJWIHLHNX2137-75-83 10:38:004.85[facility] LAZDGQKATU0316-40-01 10:38:0014.1[facility] DjwnsccBPZYZQLKPV3573-47-19 10:38:00 10.9[facility] DbmbdijVSJMLXTHNF9557-61-33 10:38:0014.2[facility] HermannHEMATOLOGY 2018-09-23 10:38:95736Ckrhrodg TvfailsMHDETYTMHF6442-25-41 10:38:0092.2[facility] UwlkdbsYUAAPHGIZK8719-56-60 10:38:00 Test Item Value Reference Range Interpretation Comments MCH (test code = MCH) 30.1 pg 27.0-31.0 [facility] WuzknibKNGVPFIMYM7532-84-42 10:38:0032.6[facility] HermannPARATHYROID RXZQPXQ3372-83-37 10:38:001.05[facility] HermannPARATHYROID LYVQIUZ8527-57-02 10:38:001.00[facility] HermannCHEM LXDVJ9928-29-65 06:22:000.6[facility] HermannCHEM SAYAU3276-58-30 06:22:0035[facility] HermannCHEM PAMLX0952-88-61 06:22:0095 [facility] HermannCHEM PEUFF0403-75-88 06:22:0047[facility] HermannCHEM PANEL 2018-09-22 06:22:0052[facility] HermannCHEM YWHTN7162-75-71 06:22:002.3[facility] HermannCHEM NOITX8121-31-38 06:22:007.1[facility] HermannCHEM IKYZH3215-53-39 06:22:0026[facility] HermannCHEM RIJHB9138-98-69 06:22:008.1[facility] HermannCHEM PYDEU0713-78-04 06:22:50870Qxtszqkt HermannCHEM FQJGZ3587-16-79 06:22:004.3 [facility]annCHEM QHTLJ2633-91-45 06:22:59900Bxpijnug HermannCHEM PANEL 2018-09-22 06:22:001.07[facility] HermannCHEM YTHCE3859-87-08 06:22:47394Pbvybmnx HermannCHEM JAFMO9104-02-83 06:22:0029[facility] HermannCHEM SCNNL1874-59-68 06:22:004.8[facility] HermannCHEM HRMSG2681-18-68 06:22:00 Test Item Value Reference Range Interpretation Comments A/G Ratio (test code = A/G Ratio) 0.5 1 0.7-1.6 [facility]annCHEM FTKLT9958-75-60 06:22:00 Test Item Value Reference Range Interpretation Comments B/C Ratio (test code = B/C Ratio) 27 1 6-25 [facility]annCHEM KQDDT2422-98-14 06:22:0011.3[facility]annHEMATOLOGY 2018-09-22 06:22:006.5[facility] JctysgmGZAKKJVWOO4704-17-51 06:22:000.1[facility] RcynniyRKDELDCEVH0676-70-29 06:22:000.2[facility] OwpajkzKUULYFVUVY5340-83-77 06:22:0073.8[facility] VzqcgowUAFJSNEXUG5241-88-81 06:22:0019.4[facility] DENMYNLRSW7890-76-48 06:22:006.0[facility] RclkkrrOTGZZIAWII0517-18-57 06:22:001.6 [facility] KqgtqvfIQDIUFQIGT8929-84-30 06:22:000.5[facility] HermannHEMATOLOGY 2018-09-22 06:22:0011.3[facility] LvdhfjiKPTNTAFKWR3867-68-33 06:22:0033.1[facility] YwtnjijONNRZAGIFH9069-96-24 06:22:0014.0[facility] XifaorqLSGLOOOSZV5300-04-29 06:22:92581Qhwmbrkv YhzkfflWDSQGRBSGU0091-30-64 06:22:0093.1[facility] RYTXEOMKWV0878-67-82 06:22:0044.2[facility] IeqleanTWFYHADEQV7668-81-17 06:22:00 Test Item Value Reference Range Interpretation Comments MCH (test code = MCH) 30.8 pg 27.0-31.0 [facility] JkzhvatNOQLXVYDXC8439-33-80 06:22:004.74[facility] HermannHEMATOLOGY 2018-09-22 06:22:008.1[facility] OdzeakjZJBXLQDRVJ1046-68-82 06:22:0014.6[facility] HermannCHEM DNPRY9405-36-76 07:00:003.3[facility] HermannCHEM UPCDA2753-26-00 07:00:002.0[facility] HermannCHEM ICTDO5457-41-02 07:00:0070[facility] HermannCHEM UNYDF0826-50-29 07:00:008.7[facility] HermannCHEM WHJSQ4061-03-05 07:00:000.84 [facility] HermannCHEM SNWRG6478-66-20 07:00:23649Etckypny HermannCHEM PANEL 2018-09-18 07:00:0032[facility] HermannCHEM DYWVP6530-32-08 07:00:28971Jijlodue HermannCHEM KZGKV7651-75-77 07:00:0032[facility] HermannCHEM KEUOK6864-40-77 07:00:003.9[facility] HermannCHEM YSUMM1917-23-78 07:00:08396Lrujqwjz HermannCHEM BVSAH0786-44-82 07:00:007.9[facility] HgbclsgSGWDBTIMES1725-12-76 07:00:000.7 [facility] PskxexwXNRONMTHVI7453-52-91 07:00:001.7[facility] HermannHEMATOLOGY 2018-09-18 07:00:006.0[facility] AhfkagbZNKRAUYNXC0965-26-35 07:00:000.1[facility] UswjsftGEXJUDEENZ1635-16-33 07:00:008.5[facility] UoczmxmKKCEWCAYPR4967-69-94 07:00:0020.3[facility] EepuetbIKUEGDLSHI2486-28-48 07:00:0071.1[facility] LTNJRDDISA6527-02-54 07:00:0033.8[facility] NkkgljmZPUSQSBBNA9730-48-40 07:00:00 14.1[facility] KnwlztgTFTOPNXELC8392-94-47 07:00:00 Test Item Value Reference Range Interpretation Comments MCH (test code = MCH) 31.2 pg 27.0-31.0 [facility] SqxhcfuICWYSCFTPJ8594-89-89 07:00:0092.2[facility] HermannHEMATOLOGY 2018-09-18 07:00:0044.7[facility] ZsxrxckTNJOUBYUBI4207-27-84 07:00:004.85[facility] VbpyxnkVJUYMJUFIR9104-28-36 07:00:008.5[facility] CpgyuswPWHSUJYQJM7110-13-09 07:00:0015.1[facility] OteljcjCXWKFWLRRX8710-56-17 07:00:0011.8[facility] HRPFJMHWXY0719-65-13 07:00:0081[facility] HermannPARATHYROID WDJEQRR7714-80-57 07:00:001.09[facility] HermannPARATHYROID DZKMOYT3583-47-43 07:00:001.09[facility] HermannCHEM SZZDP0425-94-26 06:12:002.0[facility] HermannCHEM FIBWQ8154-39-75 06:12:008.6[facility] HermannCHEM MENMU0143-92-86 06:12:006.4[facility] HermannCHEM IQXRR9333-33-83 06:12:0070[facility] HermannCHEM AHOBJ1660-13-12 06:12:003.4 [facility] HermannCHEM UUNEL3501-42-31 06:12:20712Hasiyhtf HermannCHEM PANEL 2018-09-17 06:12:49342Etissmlu HermannCHEM RCKMF8057-16-57 06:12:000.84[facility] HermannCHEM NWLAH2426-95-45 06:12:0035[facility] HermannCHEM QZXVP5831-85-59 06:12:84170Amdpzcik HermannCHEM EETEJ8120-26-09 06:12:0037[facility] HermannCHEM XDCSN4425-09-63 06:12:002.6[facility] YkkdxbhWPSRICOCMZ5063-43-34 06:12:0071 [facility] MsoaawiXXXGMUSTYR8483-48-58 06:12:0033.1[facility] HermannHEMATOLOGY 2018-09-17 06:12:0010.7[facility] PzlifejKOFOTJRDZX3671-32-59 06:12:0014.1[facility] VjpenkbKWLXMFGOTR2050-30-09 06:12:00 Test Item Value Reference Range Interpretation Comments MCH (test code = MCH) 30.4 pg 27.0-31.0 [facility] ZxbkritTEBGWPWONZ2059-99-06 06:12:009.7[facility] HermannHEMATOLOGY 2018-09-17 06:12:0092.0[facility] YmnoabgUOSTSVEYTT3271-23-80 06:12:0044.7[facility] QdndmakCICGBEYUIB2452-73-77 06:12:004.86[facility] TojpnzeCXLDLSPMCC2669-88-62 06:12:0014.8[facility] EyuluolHTLBGDPCZV4765-16-15 06:12:001.4[facility] JSUZSIXFXG3428-33-42 06:12:007.6[facility] UaejcltJHEHCUZYPI1077-74-31 06:12:007.0 [facility] QcmrghsNPSDDLVQJQ6857-34-35 06:12:000.5[facility] HermannHEMATOLOGY 2018-09-17 06:12:0014.4[facility] NrbfxbuPIKUTBKKQN4428-58-87 06:12:000.7[facility] YzlpastELFZQQJQIS3932-28-40 06:12:0078.1[facility] HermannPARATHYROID PROFILE 2018-09-17 06:12:001.11[facility] HermannPARATHYROID JLTVCYG1061-08-78 06:12:00 1.14[facility] HermannCHEM SXBUQ4770-22-81 05:36:002.1[facility] HermannCHEM PANEL 2018-09-16 05:36:002.0[facility] DfaygtiTOZRKLDIPTJO5054-02-21 05:36:008.1[facility] JsyndnjTCIVHMAMBKQN5297-11-52 05:36:0047[facility] UegiwegSVMGKTDHTOSC7180-33-92 05:36:0033[facility] FsevfoqISBBCHNESJZX2477-97-21 05:36:008.4[facility] IEHVEMQTOWGN9254-71-23 05:36:004.1[facility] WkdlonbYIKIBLXYNMBC4786-84-28 05:36:52040Agfzjrvk ZdumxwsHFGCEYGDXWIX5027-47-21 05:36:42882Dwmjucdj Jorge Alberto XZJIENQXREDA0680-68-13 05:36:0037[facility] CgmlnelIYGIIOOMLJDK9724-67-20 05:36:00 1.17[facility] NszxrcgCVYMIYPLZBFL1522-29-42 05:36:79004Cxqyipdy HermannHEMATOLOGY 2018-09-16 05:36:0077[facility] YeascadFJKKBIZJIH9817-26-04 05:36:0033.5[facility] FocmujzSWOCXQMUJW9696-48-37 05:36:0014.2[facility] DvzaakhTSHASMEPWG7325-36-83 05:36:0011.1[facility] QfxxmmeVANLFKNXDN5014-79-79 05:36:0092.4[facility] KYTHXCHNTS3724-55-94 05:36:00 Test Item Value Reference Range Interpretation Comments MCH (test code = MCH) 31.0 pg 27.0-31.0 [facility] YbaqheePYPBFSOLIA7712-31-95 05:36:0041.6[facility] HermannHEMATOLOGY 2018-09-16 05:36:004.50[facility] JfqovfoSLJECTCJNY9950-80-97 05:36:0014.0[facility] PfediuiEEMXLRVFMU2094-24-14 05:36:0010.6[facility] TnpejegOXLEXWZCEE2453-14-24 05:36:008.8[facility] RylphcqDXZWPXWWXD1165-62-90 05:36:000.7[facility] HIQFEKPEFN1827-57-62 05:36:000.3[facility] GxpwxnvRJXFHNKJHE3422-50-00 05:36:001.0 [facility] LlqfubsDDXCWHYQVZ7489-43-88 05:36:0083.3[facility] HermannHEMATOLOGY 2018-09-16 05:36:009.9[facility] VoukbmxOYKFLNGHRD3742-10-16 05:36:006.5[facility] HermannPARATHYROID EMOFLDB8785-88-55 05:36:001.13[facility] HermannPARATHYROID LJCOZBK2761-55-06 05:36:001.13[facility]annURINE AND YIHOP9755-86-25 22:04:00 3[facility] BAEJM2575-02-31 22:04:001[facility] VVGUR9290-89-96 22:04:00 Test Item Value Reference Range Interpretation Comments UA pH (test code = UA pH) 5.5 1 5.0-8.0 [facility] CKKUR6562-30-71 22:04:15213 *ABN*(09/15/18 5:04 PM) [facility] ZFRCC1232-00-04 22:04:00Negative *NA*(09/15/18 5:04 PM) [facility] FRCEJ7133-08-66 22:04:005[facility] DFPDC6129-75-98 22:04:004[facility] WYNPQ0415-47-30 22:04:00 Negative (09/15/18 5:04 PM)[facility] QGZWC5738-99-34 22:04:00 Negative (09/15/18 5:04 PM)[facility] OWZFK1165-44-06 22:04:000.2 [facility] MCNXV1293-06-37 22:04:00Negative (09/15/18 5:04 PM) [facility] HNZWU7826-39-22 22:04:00Negative *NA*(09/15/18 5:04 PM) [facility] KWIPJ2723-40-55 22:04:00 Test Item Value Reference Range Interpretation Comments UA Spec Grav (test code = UA Spec 1.025 1 Grav) [facility] FQSRH3713-57-65 22:04:00Clear (09/15/18 5:04 PM) [facility] LNUQE7813-71-62 22:04:00Yellow *NA*(09/15/18 5:04 PM) [facility] VdyouxuRBZHYVFJHK4930-12-04 17:20:00<1.0[facility] HermannBACTERIAL - ZEFYWUEG0855-53-30 16:23:00Negative (09/14/18 11:23 AM)[facility] HermannIMMUNOLOGY 2018-09-14 14:09:001.25[facility] QtkokmoNRPNEXTNZG1892-00-92 14:09:0042[facility] YaeizsuIQEVCLMFHP8860-77-83 08:47:000.1[facility] YfafyuuNNVMMGRHFR0997-19-94 08:47:000.1[facility] WrutlvcLWBOYDKONX2916-14-65 08:47:001.1[facility] FRMEHFIJZC5639-18-21 05:36:000.1[facility] CmakzmkBFWLEWBGUU5759-90-25 05:36:000.1 [facility] XebvdzxEYBWFGBGFA4955-82-41 05:36:000.9[facility]UR[facility] AND STOOL 2018-09-12 16:27:00<1.0[facility] NZYDN8812-46-26 16:27:00 Trace *ABN*(09/12/18 11:27 AM)[facility] DKGSQ1194-10-12 16:27:00 Small *ABN*(09/12/18 11:27 AM)[facility] LKUQJ3723-14-73 16:27:00 Negative *NA*(09/12/18 11:27 AM)[facility] HOGSV5680-47-49 16:27:00Slight *ABN*(09/12/18 11:27 AM)[facility] XHFPQ8528-42-61 16:27:00 Test Item Value Reference Range Interpretation Comments UA pH (test code = UA pH) 5.0 1 5.0-8.0 [facility] ZSZJN1518-33-33 16:27:00 Test Item Value Reference Range Interpretation Comments UA Spec Grav (test code = UA Spec 1.018 1 Grav) [facility] TJYJI5802-69-22 16:27:00Yellow *NA*(09/12/18 11:27 AM) [facility] UMYYQ8909-92-59 16:27:004[facility] SQLAU4680-44-07 16:27:004[facility] VWIQC3757-85-41 16:27:00 Negative (09/12/18 11:27 AM)[facility] RLGJP8731-91-11 16:27:001 [facility] NJJUT1615-96-80 16:27:00Negative (09/12/18 11:27 AM) [facility]annCHEM EEQFF4283-12-19 09:34:000.7[facility] HermannCHEM PANEL 2018-09-12 09:34:39644Iwsdrput HermannCHEM IDVHF7946-78-69 09:34:008.3[facility] HermannCHEM ICSKN5502-54-42 09:34:0025[facility] HermannCHEM TTBSC7218-85-00 09:34:0034[facility] HermannCHEM VDRZT0846-61-30 09:34:002.7[facility] HermannCHEM NLVVZ8573-76-58 09:34:005.6[facility] HermannCHEM NVNUF0788-56-81 09:34:00 Test Item Value Reference Range Interpretation Comments B/C Ratio (test code = B/C Ratio) 9 1 6-25 [facility]annCHEM AKVKZ5296-61-47 09:34:00 Test Item Value Reference Range Interpretation Comments A/G Ratio (test code = A/G Ratio) 0.5 1 0.7-1.6 [facility] FneusvwEUEIXCZGMX4337-05-76 09:34:00 Test Item Value Reference Range Interpretation Comments PTT (test code = PTT) 31.6 s 22.9-35.8 [facility] FvkemsiDMCWZOOTCS3251-74-80 09:34:00 Test Item Value Reference Range Interpretation Comments PT (test code = PT) 14.2 s 12.0-14.7 [facility] RizuncjTYENFKVKOY5466-53-74 09:34:00 Test Item Value Reference Range Interpretation Comments INR (test code = INR) 1.12 1 0.85-1.17 [facility] OofohzhLJUFKPZVAZ7031-85-64 09:34:002.4[facility] HermannHEMATOLOGY 2018-09-12 09:34:000.2[facility] ZjrihytUUKXLLUGOO8473-46-74 09:34:000.2[facility] HermannCHEM QVPNN9054-24-24 07:19:00<0.1[facility] HermannCHEM QQTVQ3754-31-56 07:19:00 Test Item Value Reference Range Interpretation Comments A/G Ratio (test code = A/G Ratio) 0.5 1 0.7-1.6 [facility]annCHEM MSVLU9998-03-71 07:19:0040[facility]annCHEM PANEL 2018-09-11 07:19:0031[facility]annCHEM RVXYF9900-81-35 07:19:88486Uimnpnsk HermannCHEM KRZXG0831-73-04 07:19:000.8[facility]annCHEM FFNCL6015-88-67 07:19:007.3[facility]annCHEM RQCXT4845-85-92 07:19:002.5[facility]annCHEM GOUDN4028-15-71 07:19:004.8[facility]annBLOOD BANK FGKVXZH5445-43-40 22:06:00 Negative (09/10/18 5:06 PM)[facility]annCHEM KEYAI3113-75-70 22:06:10389 [facility]annCHEM JTSVR6004-90-79 22:06:000.8[facility] HermannCHEM PANEL 2018-09-10 22:06:0045[facility]annCHEM XJQKO2125-45-94 22:06:0035[facility]annCHEM GMQQM7286-10-74 22:06:007.1[facility]annCHEM MPKIK0516-87-02 22:06:002.9[facility] XEFIW4778-67-44 22:06:00 Test Item Value Reference Range Interpretation Comments B/C Ratio (test code = B/C Ratio) 11 1 6-25 [facility] ULUGV9937-50-56 22:06:00 Test Item Value Reference Range Interpretation Comments A/G Ratio (test code = A/G Ratio) 0.7 1 0.7-1.6 [facility] HFUJW1311-18-63 22:06:004.2[facility]annHEMATOLOGY 2018-09-10 22:06:00Negative 1(09/10/18 5:06 PM)[facility] 2018-09-10 22:06:00 Test Item Value Reference Range Interpretation Comments Pat Od Value (test code = Pat Od 0.127 1 Value) [facility] CampusDgiliuvYIBPCHQVIN5048-76-13 22:06:00 Test Item Value Reference Range Interpretation Comments Pos CO Value (test code = Pos CO 0.400 1 Value) [facility] CampusMunsmlkSHUXKGUCML8986-71-06 22:06:00 Test Item Value Reference Range Interpretation Comments INR (test code = INR) 1.08 1 0.85-1.17 [facility] CenterMztuxpfZQJQXUYTCY9208-23-07 22:06:00 Test Item Value Reference Range Interpretation Comments Thrombin Time (test code = Thrombin 19.1 s 15.0-21.2 Time) [facility] HospitalBfajnwcLFRREKZWNF4698-59-71 22:06:001.22[facility]annHEMATOLOGY 2018-09-10 22:06:27299Usyophbq YgdcmsxKBZDZSZBMV7283-27-61 22:06:00 Test Item Value Reference Range Interpretation Comments PTT (test code = PTT) 30.3 s 22.9-35.8 [facility] CenterDefrirpCWIHIBCAAH0215-35-61 22:06:00 Test Item Value Reference Range Interpretation Comments PT (test code = PT) 13.8 s 12.0-14.7 [facility] CenterJxoosjuCYHQFKFOKL7857-94-01 22:06:50794.0[facility]annURINE AND GBXKY2572-73-41 22:06:00Marked *ABN*(09/10/18 5:06 PM)[facility]ann[facility] OCLTW2592-12-86 22:06:00Yellow *NA*(09/10/18 5:06 PM)[facility] UNIMV1263-47-25 22:06:00 Test Item Value Reference Range Interpretation Comments UA pH (test code = UA pH) 6.0 1 5.0-8.0 [facility] WVKLA0118-04-21 22:06:00Trace *ABN*(09/10/18 5:06 PM) [facility] YHIWT7040-75-23 22:06:00Negative *NA*(09/10/18 5:06 PM) [facility] MKADN1881-79-94 22:06:00Trace *ABN*(09/10/18 5:06 PM) [facility] DKIPX7890-78-28 22:06:00<1.0[facility] NRCUD5745-97-54 22:06:00Small *ABN*(09/10/18 5:06 PM)[facility] LPUNK4326-47-38 22:06:00Negative (09/10/18 5:06 PM)[facility] GLCKF8967-15-24 22:06:00 Test Item Value Reference Range Interpretation Comments UA Spec Grav (test code = UA Spec 1.012 1 Grav) [facility] WVRVZ8345-21-10 22:06:0019[facility]annUR[facility] AND ZJNFV6928-09-97 22:06:001[facility] JeyxtynZCAKDMAIPX7412-92-24 14:47:000.0 [facility] IvjdzvsOGHIRLEUXO0768-67-70 14:47:000.0[facility] HermannIMMUNOLOGY 2018-09-10 14:47:16864.0[facility] FdgqfzbWEDPVAWDOV5199-14-85 16:20:0020[facility] TzqqxpdUIHWIBZFXU9746-45-52 16:20:005.2[facility] NwzkabsSNDAOGUFOV4367-46-60 16:51:00 Test Item Value Reference Range Interpretation Comments PTT (test code = PTT) 32.0 s 22.9-35.8 [facility] KrgucjcYZMUDCHRSK6481-77-25 16:51:00 Test Item Value Reference Range Interpretation Comments PT (test code = PT) 13.5 s 12.0-14.7 [facility] ImqbsbnDNUPTJVKOQ6464-40-42 16:51:00 Test Item Value Reference Range Interpretation Comments INR (test code = INR) 1.05 1 0.85-1.17 [facility] PeeshisHWVWJIXOWEFR6869-40-39 16:46:0015.8[facility] HermannELECTROLYTES 2018-09-08 16:46:00 Test Item Value Reference Range Interpretation Comments B/C Ratio (test code = B/C Ratio) 16 1 6-25 [facility] OvofctlDDSWRQRQKONA8934-93-76 16:46:004.2[facility] HermannELECTROLYTES 2018-09-08 16:46:00 Test Item Value Reference Range Interpretation Comments A/G Ratio (test code = A/G Ratio) 0.7 1 0.7-1.6 [facility] TtfassrRSORFBGXYQLO9198-46-48 16:46:39385Vxaxgbgc HermannELECTROLYTES 2018-09-08 16:46:003.8[facility] HaqttagGOXNLOQSJRZP9284-20-14 16:46:97112Kixarbid JjwqmcdCPJZYNZDQGKZ6549-36-49 16:46:0021[facility] QdkwqgpNPNYBGJUHGYS2941-62-82 16:46:83833Mdxjnead QycvlndYEFZZXXPJFRY5777-49-71 16:46:002.9[facility] FUJSXWCRBNEJ1362-67-37 16:46:0028[facility] GeyqsasXBZYXPLNIDGK8753-26-54 16:46:00 40[facility] HsbjrpfCEQYLYBBZRMK3745-96-13 16:46:35418Ibutxhcz HermannELECTROLYTES 2018-09-08 16:46:0067[facility] DpqaarzUCFYZSDPCPIS6982-59-77 16:46:001.33[facility] ApicrrfXQUKNTEMXJQT0687-33-41 16:46:001.3[facility] FbigoyvGNZKDEZGOYTR4688-37-29 16:46:007.1[facility] ErefiypWBQZMOYPQADB5552-70-76 16:46:66594Eggxqkaa [facility] AUCEZMAQISNR4693-23-39 16:46:009.3[facility] YimjzmbYOQSZTBDMB6550-67-94 16:46:00 0.1[facility] AxyrrbfWGEMRPTMPY1119-06-79 16:46:002.5[facility] HermannHEMATOLOGY 2018-09-08 16:46:000.2[facility] GfotxsgPPGVQNUBCX2248-27-49 16:46:000.7[facility] YccktveCKSBMHUPTX0501-70-86 16:46:003.3[facility] VlsvnbtVXXBLFBOPL8110-95-08 16:46:009.8[facility] ZhlubfqAGOYEYHVCN8513-95-07 16:46:002.5[facility] HVLMAITVZC4722-11-59 16:46:002.0[facility] LouboxwBITDJFWGYZ4306-47-20 16:46:00 48.8[facility] EpyxytxMLDWYSXXEE1373-61-51 16:46:0036.9[facility] HermannHEMATOLOGY 2018-09-08 16:46:0011.3[facility] TuhjbtzNBPXKNUECS4882-86-98 16:46:00 Test Item Value Reference Range Interpretation Comments MCH (test code = MCH) 30.3 pg 27.0-31.0 [facility] NkyyyuiPMFISAHRSB6132-99-30 16:46:61786Frwumusq HermannHEMATOLOGY 2018-09-08 16:46:0013.9[facility] HspqzlnXYKVXEEJHS4754-59-38 16:46:0092.9[facility] KmrdauhLDUWIVGXMW5289-19-52 16:46:0032.6[facility] PdtjwmkUZNCDQZDRB3475-92-27 16:46:006.8[facility] AzcuqicADUUIEBPIH8505-92-91 16:46:005.13[facility] TFZNOUHVQJ1408-15-69 16:46:0015.5[facility] NrirftiWLEJWYCPRD0830-87-53 16:46:00 47.7[facility] JklmdgiPYUFQV8490-24-62 16:46:00 Test Item Value Reference Range Interpretation Comments VLDL (test code = VLDL) 24 1 [facility] BmdauuiKNWREC3447-93-06 16:46:0045[facility] VqheaslQMJYHB9983-74-39 16:46:00 Test Item Value Reference Range Interpretation Comments CHD Risk (test code = CHD Risk) 2.82 1 3.90-5.80 [facility] TzrzeucTZNRLB9108-88-79 16:46:0038[facility] GnebftwDJTQEH2766-59-57 16:46:74740Lcjtdxjs GwgbehfNOQLMM6974-22-33 16:46:05941Mwmdptpw HermannSPECIAL VZZBLPHYU6549-24-35 16:46:0012.2[facility] IlgoatcJIYFIQBOEN5784-63-25 22:52:009.7 [facility] JyvdmsmYGRWEIXTLZ2423-23-91 22:52:82818Jjqffiau HermannHEMATOLOGY 2018-08-19 22:52:0013.7[facility] QicopvwAKETSHDCPX4422-53-22 22:52:0017.8[facility] LysrcutYVOMKJIICS0450-60-50 22:52:0052.9[facility] ReezgxnDQBBWIMUNI8235-51-47 22:52:0092.3[facility] OhkgjbgIZGYPIDNMW6538-19-00 22:52:005.73[facility] OBQSOBWLHB6631-83-01 22:52:008.5[facility] AeotldbKUGYGKJRPF9202-52-78 22:52:00 33.6[facility] IdkwupdKAKMCYDJXX5999-63-87 22:52:00 Test Item Value Reference Range Interpretation Comments MCH (test code = MCH) 31.0 pg 27.0-31.0 [facility] HermannCARDIAC QJPUJGM7094-82-32 09:40:0098[facility] HermannCHEM PANEL 2018-08-19 09:40:003.4[facility] HermannCHEM GDLYG7706-98-40 09:40:001.9[facility] HermannCHEM NCDCP8620-11-07 09:40:0062[facility] HermannCHEM OREWW3104-69-91 09:40:008.8[facility] HermannCHEM JLICI7618-45-04 09:40:0023[facility]annCHEM EKKMV3695-65-81 09:40:11301Cunxqkzq HermannCHEM BAPWP0862-36-65 09:40:004.6 [facility]annCHEM MPTIR6630-02-16 09:40:000.94[facility] HermannCHEM PANEL 2018-08-19 09:40:43105Wnerbgzj HermannCHEM DJCYB6349-02-43 09:40:0013[facility] HermannCHEM GGHPG8844-51-27 09:40:55995Cenxifwn HermannCHEM RNFMC4962-19-15 09:40:0013.6[facility] GbzxpvwCQZSXZYRMC2993-86-72 09:40:000.2[facility] ZPYQHRDBCX3741-23-27 09:40:000.1[facility] ImvnhloMQWXGVGVVD2316-58-10 09:40:00 47.9[facility] XpcyyceLMSVQCHTWF9156-43-06 09:40:0040.1[facility] HermannHEMATOLOGY 2018-08-19 09:40:003.9[facility] FpcmaecWUZFNHJSOX3618-06-61 09:40:000.9[facility] ElxbadqOCZJSKDJAL6087-81-71 09:40:008.8[facility] HknieilRVPRPMGECA1829-08-19 09:40:001.2[facility] TmqzsorGGTPZCDAXG2515-90-78 09:40:002.0[facility] PFJCVJEWHK8713-30-18 09:40:004.7[facility] VwxjaxtEZNCMLNPII1054-84-17 09:40:00 Test Item Value Reference Range Interpretation Comments INR (test code = INR) 1.09 1 0.85-1.17 [facility] CenterBgzjbqvDQRMBTFMCA7958-38-86 09:40:00 Test Item Value Reference Range Interpretation Comments PT (test code = PT) 13.9 s 12.0-14.7 [facility] CenterSylgiuuBRSOHIUKQJ5777-24-83 09:40:00 Test Item Value Reference Range Interpretation Comments PTT (test code = PTT) 31.0 s 22.9-35.8 [facility] CenterOfeuttyHIXUXIOICW4260-23-90 09:40:0093.0[facility]annHEMATOLOGY 2018-08-19 09:40:00 Test Item Value Reference Range Interpretation Comments MCH (test code = MCH) 31.1 pg 27.0-31.0 [facility] BucbtwvTTWLJVKSTF7293-36-24 09:40:0013.7[facility] HermannHEMATOLOGY 2018-08-19 09:40:0033.4[facility] TpsjxanCOPBQLBUVW8572-04-95 09:40:0077[facility] BqmztzoWWGFKBFOSZ2049-05-04 09:40:009.9[facility] IeavzvaQQKBIKYCUD4637-27-66 09:40:0049.7[facility] UnyhemiVSOMFXROBF6600-88-82 09:40:0016.6[facility] BSFZXJGWGY8269-69-28 09:40:005.35[facility] HwirwwdHNNODFGKHY5181-14-12 09:40:00 9.7[facility] HermannPARATHYROID FKUUWYO0214-97-60 09:40:001.02[facility] PARATHYROID XQFYXLB9983-19-00 09:40:000.98[facility]annURINE AND STOOL 2018-08-19 09:40:00Negative (08/19/18 4:40 AM)[facility]annCHEM PANEL 2018-08-18 10:45:19748Vpusuocx HermannCHEM NMFCY3899-46-89 10:45:00 Test Item Value Reference Range Interpretation Comments A/G Ratio (test code = A/G Ratio) 0.6 1 0.7-1.6 [facility]annCHEM RQQGO4708-81-01 10:45:0030[facility]annCHEM PANEL 2018-08-18 10:45:006.9[facility] HermannCHEM FHPHM3502-38-77 10:45:002.6[facility]annCHEM BRDTH2739-23-85 10:45:004.3[facility]annCHEM WFVMA5385-77-11 10:45:00<0.1[facility]annCHEM FKMTG7721-22-30 10:45:000.5[facility] CHEM DDYJG2705-71-69 10:45:00>0.4[facility] HermannCHEM UHWRD2360-12-20 10:45:0021[facility]annCHEM TBDYS2146-44-95 10:45:008.5[facility] HermannCHEM ETZLG2914-05-85 10:45:0071[facility]annCHEM ZCEJR0385-12-71 10:45:0013 [facility]annCHEM VIKOP1269-42-63 10:45:09225Amkldxpw HermannCHEM PANEL 2018-08-18 10:45:0027[facility] HermannCHEM AMJII5068-76-69 10:45:003.6[facility]annCHEM DRATO2178-33-42 10:45:98177Wklwogqb HermannCHEM FEZXW7107-48-32 10:45:43063Eqgjsrnn HermannCHEM KFPPR5308-69-16 10:45:000.83[facility] HermannCHEM SNXLI6925-18-75 10:45:0010.6[facility] HermannCHEM XGSVE8429-34-94 10:45:001.8 [facility]annCHEM UOSBO2560-09-67 10:45:003.6[facility]annHEMATOLOGY 2018-08-18 10:45:003.9[facility] OtrfgqxAHQPOVTWJH0009-78-96 10:45:002.5[facility] YmxnjmlXIVQLOZWLS6920-01-12 10:45:001.9[facility] FtkypddXAKDFYBVCY2686-27-10 10:45:000.6[facility] QvcfjitMCILWEGYJC0576-31-38 10:45:003.8[facility] MBIKTEZFJJ0189-96-17 10:45:000.2[facility] DlilwxeDCVTLLSTBY8335-86-77 10:45:000.2 [facility] NqbwwekWCUISZYGRZ1237-34-45 10:45:0044.0[facility]annHEMATOLOGY 2018-08-18 10:45:0045.3[facility] BamsfzsPJAGKVXBTW2796-03-68 10:45:006.3[facility] RyuuexvXOXGICKZFD5382-77-17 10:45:0049.2[facility] CzqheejUXBPVRXEWP1397-76-29 10:45:0017.0[facility] XevqrslGVURBTPTJS9400-41-69 10:45:005.30[facility] OPKUIGWCHU1856-06-14 10:45:008.7[facility] YebcbdnCKMEZTCLVE8560-33-94 10:45:00 92.8[facility] TwjrwueADWRRRQPZB3558-64-37 10:45:009.7[facility]annHEMATOLOGY 2018-08-18 10:45:0013.6[facility] DzxxxgaJYWLTQVPKS4236-37-43 10:45:15265Ddxwpuqh UbwtwouXRHTAFCQCS7529-90-88 10:45:0034.6[facility] XbtvxveAWJPKISPOX1977-08-20 10:45:00 Test Item Value Reference Range Interpretation Comments MCH (test code = MCH) 32.1 pg 27.0-31.0 [facility] HermannPARATHYROID BEYNPFD0369-02-89 10:45:001.05[facility] PARATHYROID FPWWNRP8600-86-70 10:45:001.06[facility] ZcsoksaDVTGFGKDXY9357-29-64 04:46:110.9[facility] GtiumfiGXHRSRKUNK3921-59-17 04:46:110.2[facility] EZIPNKLJRT3240-52-13 04:46:115.1[facility] GdmsyoaGEPGXGQXPJ9822-88-51 04:46:110.1 [facility] HatspgyOOLFPKTHUL7560-31-18 04:46:117.6[facility] HermannHEMATOLOGY 2018-08-17 04:46:1144.9[facility] LuhtpriFXOCPVISZU0350-78-61 04:46:1144.2[facility] DcflyihVGRAJOSIDF0067-85-27 04:46:111.3[facility] AcszybdYRSQHHTALR5871-92-33 04:46:112.0[facility] InxhhdtCASDMPTEDT5954-02-78 04:46:115.2[facility] FHVJHQMKLEHQ0897-11-31 20:35:0011.9[facility] TfhilagRCZWGLZHOAPM9540-72-17 20:35:0064[facility] PyxbwejJODNKIUBRIMS6336-03-92 20:35:14110Exafzkdg [facility] SABECLFPTGDJ3730-47-52 20:35:003.9[facility] UqbwbgaZLJCOSNXCMFP6790-66-61 20:35:15025Ujtwvswk OecxsilIOIVBYUGURRY9435-01-93 20:35:0030[facility] HANUMVEZYRGW1535-51-88 20:35:009.6[facility] ZvbyzqqFXDDZXPNKZHT5683-24-99 20:35:0016[facility] CbmdldsXKYKUIVPVBRD1554-40-80 20:35:41158Xmensrlg [facility] LXDNEZRMVOOM2740-99-93 20:35:000.91[facility] QzziwaiPTULTZSUUF0884-41-75 20:35:00 Normal (08/16/18 3:35 PM)[facility] SyeycoxGLVLYMYYWX4480-92-16 20:35:00Normal (08/16/18 3:35 PM)[facility] AljovarASDOUHBNVH5656-39-29 20:35:00 Test Item Value Reference Range Interpretation Comments PTT (test code = PTT) 32.0 s 22.9-35.8 [facility] SptxmtjZUEJBSLNSE9740-99-16 20:35:00 Test Item Value Reference Range Interpretation Comments PT (test code = PT) 12.6 s 12.0-14.7 [facility] DqixahbLOLACGANNX9094-87-78 20:35:00 Test Item Value Reference Range Interpretation Comments INR (test code = INR) 0.96 1 0.85-1.17 [facility] OJMR5177-26-49 15:21:00Surgical Pathology Report Case: [id number] Authorizing Provider: Ruma Ndiaye MD Collected: 02/24/2017 1559 Ordering Location: [facility] Received: 02/25/2017 [...] SERRATED POLYP/ADENOMA Signing Pathologist Direct Phone Line: [phone] signed by Kenji Hercules MD on 02/26/2017 at 3:21 [id number] x 3Diarrhea, rule out microscopic colitisA. Right/ascending [...] METER 144 mg/dL 70-110 H TESTED AT [place] [address] ([facility]) (test code = [place] 335528) [address] POCT-GLUCOSE DMYEJ2739-96-82 14:21:00 Test Item Value Reference Range Interpretation Comments POC-GLUCOSE METER 118 mg/dL 70-110 H TESTED AT [place] [address] ([facility]) (test code = [place] 335528) [address] BEDSIDE GLUCOSE WCPYQMN8887-89-07 21:51:93053.0[facility] HermannBEDSIDE GLUCOSE OSZMTJC1640-77-66 16:52:28544.0[facility] HermannBEDSIDE GLUCOSE GDBRYJI8165-63-19 12:45:74748.0[facility] YrxnbtdOTVIHCGOK0744-94-15 10:30:003.3[facility] EWTUCPZUS8325-13-01 10:30:005.4[facility] NzpjmppAIOWTSLCS5470-32-02 10:30:002.1 [facility] FvakheqEIDLYAKLG7766-38-87 10:30:09072.0[facility] HermannCHEMISTRY 2011-03-25 10:30:86132.0[facility] GvzkepnBSJMZIBMV5069-84-52 10:30:00 Test Item Value Reference Range Interpretation Comments A/G Ratio (test code = A/G Ratio) 0.6 1 0.7-1.6 L [facility] PgrqpraNFTGCIRQM1314-34-15 10:30:50627.0[facility] HermannCHEMISTRY 2011-03-25 10:30:000.2[facility] GrnzdbqLYKIGGYRG2215-99-02 10:30:000.3[facility] JllganlHKCGTAPXX7196-97-82 10:30:000.1[facility] DudrkwrGISSIYUAD1659-21-80 10:30:002.4[facility] OttfeuqGMOEPSUBZ1907-28-05 10:30:004.1[facility] HKRHDDJYU7374-15-79 10:30:44015.0[facility] IjzmlynKTKVCUUQE1053-97-51 10:30:00 140.0[facility] DdfugawQYPTOENAE5913-73-70 10:30:008.0[facility] HermannCHEMISTRY 2011-03-25 10:30:0019.0[facility] MkqhaddHHWSDGQMY0283-42-62 10:30:30722.0[facility] UydkqiqGLECFPCPG6180-20-06 10:30:0021.0[facility] PqgverwJUHRDYFAU9183-21-93 10:30:001.7[facility] XdzkpedCHMWZJOXV2306-12-13 10:30:0018.1[facility] TBWEJWPHEK2435-26-78 10:30:000.9[facility] JgjhnulQDEGFRKOET8345-01-52 10:30:000.1 [facility] OoabrpqCJGBCUVXVA3486-67-48 10:30:0016.0[facility] HermannHEMATOLOGY 2011-03-25 10:30:009.1[facility] OiivxqnTFJXJZCOQZ7282-91-38 10:30:001.5[facility] DttkoifYGJAMBPVYS9313-98-69 10:30:004.3[facility] AewdftvXZUIITPFVY5066-91-45 10:30:003.2[facility] FkgypyuSMJXFQECYV1226-83-50 10:30:001.6[facility] YGFIPKRYAW0187-44-65 10:30:0031.4[facility] UcqrivbUYYGSEKGTZ6529-57-12 10:30:00 42.0[facility] UgyshpuUZRKDKYKAL7737-63-24 10:30:0015.0[facility] HermannHEMATOLOGY 2011-03-25 10:30:0033.9[facility] GwtcpljQHFIHNPYMF5165-41-15 10:30:00 Test Item Value Reference Range Interpretation Comments MCH (test code = MCH) 31.0 pg 27.0-31.0 [facility] HorjulvHPNTQGKSBJ8885-84-29 10:30:0091.4[facility] HermannHEMATOLOGY 2011-03-25 10:30:0036.8[facility] HucjyslRRAPVJXXOO7554-10-55 10:30:0012.5[facility] SxceyvlVOLPRLRLTK6316-34-74 10:30:0010.0[facility] YaawtzyJBCTXTNCGH8030-45-48 10:30:06420.0[facility] VycmnqzZNQSZJAUDV9578-15-38 10:30:004.03[facility] UBGOUTZBXC6125-29-53 10:30:0010.1[facility] KjrqnmpSXRZEFKWG4896-96-48 13:51:00 Test Item Value Reference Range Interpretation Comments A/G Ratio (test code = A/G Ratio) 0.7 1 0.7-1.6 [facility] ZwoowkaOXOEGLUCM2998-61-06 13:51:000.2[facility] HermannCHEMISTRY 2011-03-24 13:51:003.2[facility] NtzgxncFFGOYJJRS9272-29-41 13:51:005.6[facility] HigvqjuZKAIKFBNY8092-79-64 13:51:002.4[facility] XxarewzZGKKOBRMK2595-31-70 13:51:000.2[facility] GdjrvdwVDFEWLQRB0679-86-90 13:51:70136.0[facility] BLUNGLJPG1694-10-99 13:51:69753.0[facility] FcbzubrVVQFXDFBX5278-01-50 13:51:000.4 [facility] OmluieiCHLMNJHBS1117-60-90 13:51:16990.0[facility] HermannCHEMISTRY 2011-03-24 10:08:001.6[facility] MhwdozcYCCCAALLF6258-89-26 10:08:0015.6[facility] FlhyruyRSIWIWWDQ4565-78-50 10:08:0021.0[facility] AwtymrkXNCVIQZTY0063-94-51 10:08:003.6[facility] AjawdioXSFOBDAYX7756-59-26 10:08:52311.0[facility] SSCHIRZBD1987-25-01 10:08:007.7[facility] FnmuwaiOYZCFXNRV3721-15-15 10:08:88003.0 [facility] QelbdavDULLIWQVY5651-45-57 10:08:0023.0[facility] HermannCHEMISTRY 2011-03-24 10:08:001.7[facility] EoenbtyZXZSNOUPB4902-43-22 10:08:07847.0[facility] QjuxfjgYQPSWYZKBW7964-01-00 10:08:00 Test Item Value Reference Range Interpretation Comments PT (test code = PT) 14.8 s 12.0-14.7 [facility] DumoealDXULSYZANV8627-94-17 10:08:00 Test Item Value Reference Range Interpretation Comments INR (test code = INR) 1.16 1 0.85-1.17 [facility] KldrrekDSKQNMQNNL5111-19-03 10:08:00 Test Item Value Reference Range Interpretation Comments PTT (test code = PTT) 34.9 s 22.9-35.8 [facility] IkopoyfJESUHPXNPA0176-80-55 10:08:000.1[facility]annHEMATOLOGY 2011-03-24 10:08:004.1[facility] OubgrdbMOHIINWIAQ1968-43-84 10:08:002.8[facility] ZcamhgqEOSKYCDSDO2155-69-83 10:08:000.8[facility] QofdgbyWNWROQSGIN1325-08-00 10:08:001.8[facility] LqwovftKGNXCAOGAV9744-61-10 10:08:0028.5[facility] CDMZEPGQLQ2545-69-68 10:08:008.6[facility] EdwrjstXHYQWVXFRX8052-58-82 10:08:00 19.0[facility] UvfcwywUJLMEFENXY5338-59-90 10:08:001.3[facility]annHEMATOLOGY 2011-03-24 10:08:0042.6[facility] RyzgxyyVXNFHNJOSQ6111-58-88 10:08:009.7[facility] BfmmglxGRPJHAHFRI1122-69-19 10:08:003.67[facility] AibcxdnDBDYMXXDYD5812-45-57 10:08:0034.9[facility] ArnswmlCUTTZMHGEO1856-45-53 10:08:0015.1[facility] UYVJTCDNTX3147-97-19 10:08:24716.0[facility] NktmadiAFPGSBNCIB2752-79-27 10:08:00 90.5[facility] SkzvzysVBMOKWIWDG3063-03-08 10:08:00 Test Item Value Reference Range Interpretation Comments MCH (test code = MCH) 31.6 pg 27.0-31.0 H [facility] OjxgoaiZBYXDPPVKO7651-39-49 10:08:009.5[facility]annHEMATOLOGY 2011-03-24 10:08:0011.6[facility] DjrrvdfRJDXGQZMJL5351-36-09 10:08:0033.2[facility] EwwpjrxZULIBLPFSG8139-21-72 10:08:00Negative *NA*(03/24/2011 05:08:00) ?? [facility] YtfbwyoXEXKEDVBE3668-19-30 10:24:0036.0[facility]annCHEMISTRY 2011-03-23 10:24:79665.0[facility] BwzdoquSTXEJVDWG3375-94-49 10:24:0097.0[facility] PpmepmaZXPPACMJZ1215-88-68 10:24:0022.0[facility] GmiykweLXSACUJGB0385-04-81 10:24:001.5[facility] BjdccfaVELELRDBG5905-45-34 10:24:0020.0[facility] DHOTNPVTR4741-88-11 10:24:72995.0[facility] BwgyitwSMQKDPHFC8966-71-99 10:24:007.8 [facility] WhhapnlGIOZSLYEY6695-65-90 10:24:21721.0[facility]annCHEMISTRY 2011-03-23 10:24:004.7[facility] FombrsuZKCLQMAIR6756-77-77 10:24:0019.2[facility] QglkhxcRGBKNUVTT7954-59-82 10:24:002.8[facility] ZnqsaynUGBDVUZXD4059-18-21 10:24:001.9[facility] PvnwmcpEBSJWOTQP9907-84-48 10:24:47481.0[facility] RIAFWEXNX4275-98-37 10:24:00 Test Item Value Reference Range Interpretation Comments A/G Ratio (test code = A/G Ratio) 0.7 1 0.7-1.6 [facility] PinrswsLRJLFRZMV8054-32-03 10:24:00 Test Item Value Reference Range Interpretation Comments B/C Ratio (test code = B/C Ratio) 15.0 1 6-25 N [facility] VvsakzsIGDZFLBDG9238-82-36 10:24:001.0[facility] HermannCHEMISTRY 2011-03-23 10:24:09108.0[facility] GapoxlnKPCLXXXSX2593-66-84 10:24:17528.0 [facility] CfkepnqDTWPQMRND6470-64-03 10:24:003.2[facility]annHEMATOLOGY 2011-03-23 10:24:0014.8[facility] DelsayyTVBLOGRQGU9988-13-03 10:24:009.8[facility] AdnjkafRCBOLAVSAH1732-89-45 10:24:50550.0[facility] LrifjpkLASBHCRBFP6875-10-04 10:24:00 Test Item Value Reference Range Interpretation Comments MCH (test code = MCH) 31.0 pg 27.0-31.0 N [facility] QtpdxnoIYTDMEBDBB5912-56-06 10:24:0034.1[facility]annHEMATOLOGY 2011-03-23 10:24:0032.7[facility] AdymqvqLTPTXAIDNB6190-76-42 10:24:0091.0[facility] RjthqcmVLWFFVFFAL5492-33-50 10:24:0011.2[facility] SmybirbDZAICZYJEM9796-33-57 10:24:006.7[facility] JpmduklAFBHNJYFKA7534-26-39 10:24:003.6[facility] HIBRMVPFWB7498-73-60 10:24:00Slight *ABN*(03/23/2011 05:24:00) ??[facility] HetcyahUQWXPVQJDP1906-20-24 10:24:002.1[facility] TmirpglUDSKCILMGK9846-66-32 10:24:002.7[facility] QisbmlyNFMFUENPLD3512-53-98 10:24:000.9[facility] VEBANKWJFC2734-18-17 10:24:00Normal (03/23/2011 05:24:00) ??[facility] JIUSPJMAVB5137-23-12 10:24:0015.0[facility] WyxyhncITXWBRRYHN9616-12-35 10:24:00 0.0[facility] SxxhxqdIDFIIXFHFG3685-42-19 10:24:001.0[facility] HermannHEMATOLOGY 2011-03-23 10:24:001.0[facility] OmwhvsoOAEGRKTPPE8554-20-46 10:24:001.0[facility] GcadkrcKETCSHWEPA0018-39-74 10:24:0031.0[facility] XoeddmaMFZWKMRZSN8149-32-38 10:24:0013.0[facility] IhqsjmwYATNYQCBNY4545-25-70 10:24:0039.0[facility] GWJFHFYNWN9242-79-89 10:24:000.1[facility] LllcznfOCSWGXUXSV2513-73-48 10:24:00 10.0[facility] VqqxjdzTGCSYRXTDC5241-80-42 22:20:00??[facility]annURINALYSIS 2011-03-22 22:20:003.0[facility] NemgjdeMWWHPBDGMR4833-23-29 22:20:00Occasional /HPF *NA*(03/22/2011 17:20:00) ??[facility] QljaqujDRRVCOYMBV6634-71-94 22:20:00 Few /LPF *NA*(03/22/2011 17:20:00) [facility]FxxhuguDTVIKFZIWM6568-81-92 22:20:00Few /LPF *NA*(03/22/2011 17:20:00) ??[facility] CenterannURINALYSIS 2011-03-22 22:20:00<1.0[facility] TpusrkoRAJMLMYYRB8295-83-22 22:20:00Negative (03/22/2011 17:20:00) ??[facility] CenterRpfpztqRLLNFWGLES6311-51-79 22:20:00Negative (03/22/2011 17:20:00) ??[facility] CenterCntpwhgVYXDJGHQXV9916-05-83 22:20:54545 mg/dL *ABN*(03/22/2011 17:20:00) ??[facility] CenterFyyvygrPOWECYYKUF2887-71-90 22:20:0010 mg/dL *ABN*(03/22/2011 17:20:00) ??[facility] CenterIrdrkbcATXUSHMQVE3634-99-91 22:20:00 Negative *NA*(03/22/2011 17:20:00) ??[facility] CenterAizolwgJTYBWNEWSU2362-06-08 22:20:00Moderate *ABN*(03/22/2011 17:20:00) ??[facility] CenterannURINALYSIS 2011-03-22 22:20:00Negative mg/dL *NA*(03/22/2011 17:20:00) ??[facility] EQSZSLCUUD8694-55-31 22:20:00 Test Item Value Reference Range Interpretation Comments UA Spec Grav (test code = UA Spec 1.016 1 N Grav) [facility] CenterUkjekezQEHHZJQZCJ5247-65-68 22:20:00 Test Item Value Reference Range Interpretation Comments UA pH (test code = UA pH) 5.5 1 5.0-8.0 N [facility] CenterTpmxurrFURUXSLDSE2223-76-51 22:20:00Yellow *NA*(03/22/2011 17:20:00) ?? [facility] CenterNzncjlgEZVDYVVVSP5015-95-04 22:20:00Slight *ABN*(03/22/2011 17:20:00) ??[facility] CenterCupqccxOCRDSSEZB0457-96-36 14:40:000.2[facility]annCHEMI[facility]Y 2011-03-22 14:40:000.1[facility] FgumvawPWPUWKUWHA1661-06-30 14:40:00Negative *NA*(03/22/2011 09:40:00) ??[facility] UdxyucyIWAMWYCJKL8845-45-60 14:40:00 Negative *NA*(03/22/2011 09:40:00) ??[facility] RyjwzksRVLJSBZIBJ7609-12-11 14:40:00Negative *NA*(03/22/2011 09:40:00) ??[facility]annIMMUNOLOGY 2011-03-22 14:40:00See Note 9(03/22/2011 09:40:00) ??[facility]annCHEMISTRY 2011-03-22 12:05:001.67[facility] DbkuqqnARIRYFQEF3747-33-77 12:05:000.044[facility]annBEDSIDE GLUCOSE BIEGYWV8265-31-45 17:19:60159.0[facility]annBEDSIDE GLUCOSE WFKRJJG9139-38-77 12:36:66644.0[facility] UrdyrqpMVNZNOLZC7843-25-54 08:07:0018.5[facility] SdqwkgxJJVYTCQFM8374-50-74 08:07:003.5[facility] MRDMYGYWN1631-71-08 08:07:0021.0[facility] FzorkzdJUAJDEWBZ1364-40-85 08:07:00 147.0[facility] VesgfacCOSAVJDQA8152-37-76 08:07:001.4[facility]annCHEMISTRY 2011-03-15 08:07:27025.0[facility] UzhlzajZWHSOMPYG8320-62-64 08:07:008.1[facility] VlkycquUXQHWAWLM3385-37-85 08:07:0097.0[facility] CbcmoazQJPHMCRQR5950-91-46 08:07:0021.0[facility] IlptqdoVBCVJWHTN2031-29-68 08:07:001.7[facility] LOXQNSYNQL9491-27-78 08:07:0016.7[facility] KvorqriAZXBTBKXAS1654-28-85 08:07:00 12.4[facility] OvvingiOKYFPADHQM0934-05-98 08:07:0063.3[facility]annHEMATOLOGY 2011-03-15 08:07:000.6[facility] LuavratKRUDGPKZIE5051-28-88 08:07:001.1[facility] QrsjjjzVFQBAGCCJS9111-97-65 08:07:000.1[facility] JobgcjoRKTQFJSUCE2008-77-47 08:07:001.5[facility] QmsswnyVNZLVNZQMH9363-25-24 08:07:005.8[facility] JQCKSUUYRR7127-94-70 08:07:001.3[facility] HetterpAKVSZPOVAC4038-60-77 08:07:006.3 [facility] AjlwlrjOSRNCQKZXA6842-95-93 08:07:00 Test Item Value Reference Range Interpretation Comments MCH (test code = MCH) 31.6 pg 27.0-31.0 H [facility] QurusniEFBCRIZSCM3125-10-17 08:07:003.56[facility]annHEMATOLOGY 2011-03-15 08:07:0090.7[facility] LobmambXLANZBDEFZ1179-64-76 08:07:0032.3[facility] BfuaqdnHNVIUKMYJH7717-38-83 08:07:0011.3[facility] QofraswHGNEOKGSMN4268-55-07 08:07:009.1[facility] MeqzvprTINGFQPXSQ3559-83-19 08:07:0010.1[facility] GAYPPHLIHK2085-86-40 08:07:51959.0[facility] SbhhomnUVDVLFNDDF3010-73-68 08:07:00 14.7[facility] EgmmrfbJZWYHGAAIA4756-54-60 08:07:0034.8[facility] HermannBEDSIDE GLUCOSE MIGPTXP6923-35-96 02:08:01256.0[facility] OgkzohtVPNZBZXOL4418-44-39 14:30:002.0[facility] EkvpuagZEUSEKPFJ3932-12-90 07:41:000.042[facility] UHRRKVRIA7425-02-94 07:41:0031.0[facility] ZimdcasKOQOVUGMH2688-04-46 07:01:001.6 [facility] BusdahxVCWADEPRSL4320-47-72 07:01:00 Test Item Value Reference Range Interpretation Comments INR (test code = INR) 1.15 1 0.85-1.17 [facility] AdiomvwIEIJNZRMZI7121-86-47 07:01:00 Test Item Value Reference Range Interpretation Comments PT (test code = PT) 14.7 s 12.0-14.7 N [facility] WfohcduVPVFHYJLDW2067-59-24 07:01:00 Test Item Value Reference Range Interpretation Comments PTT (test code = PTT) 30.3 s 22.9-35.8 N [facility] YaspxscXNHUYMLJU8805-88-86 06:50:0049.0[facility]annCHEMISTRY 2011-03-14 06:50:0023.0[facility] JfysojlJLFVWRPES3122-76-42 06:50:004.3[facility] CnwycymUQVTGHNYW2347-85-99 06:50:00 Test Item Value Reference Range Interpretation Comments A/G Ratio (test code = A/G Ratio) 0.8 1 0.7-1.6 N [facility] NpompcxEUNUEWDRK5938-53-32 06:50:003.4[facility]annCHEMISTRY 2011-03-14 06:50:0033.0[facility] UlrqxiuSJLBJKNKD8744-14-93 06:50:0027.0[facility] QymljnzBURLPXKQR4789-69-91 06:50:000.4[facility] MggesjtDIAFYGVOF6427-35-47 06:50:006.2[facility] LoemshxJVRFFHSEX2475-25-52 06:50:75969.0[facility] WSRGAVLEZ4004-25-60 06:50:002.8[facility] AgcqajwSSVSGYZIS3138-28-72 06:50:00 Test Item Value Reference Range Interpretation Comments B/C Ratio (test code = B/C Ratio) 14.0 1 6-25 N [facility] EkdjilaSFDOCVRKQ5730-60-75 06:50:008.4[facility]annCHEMISTRY 2011-03-14 06:50:0021.8[facility] JylkjtaVSVFQWIDW8760-56-46 06:50:0019.0[facility] JdhfdmdDOIBHODSX0777-65-65 06:50:63315.0[facility] JcjcyrbVOEAUSQWG0573-68-92 06:50:89825.0[facility] RhfiddcVSXRTZMSM1054-51-85 06:50:003.8[facility] HXJXPTHCT8172-15-55 06:50:0020.0[facility] PeuafucXWCSOZVEB2367-98-16 06:50:001.4 [facility] ZjdbnneBWDNCKWDA3720-88-42 06:50:0091.0[facility]annCHEMISTRY 2011-03-14 06:50:001.2[facility] OeqciawIRSKFSFFOX4463-08-26 06:50:0010.3[facility] ElefcjeORSYRIFTPZ6551-79-90 06:50:006.2[facility] QlaqfscUZKLXINCCF2358-56-85 06:50:0061.3[facility] NtyrkcpIPGRJGFFQS8870-63-39 06:50:0022.2[facility] UFBEIPUFJY4509-69-04 06:50:000.0[facility] NjwyecuFCKBYLIMPE4894-84-22 06:50:001.2 [facility] XnpttgcIBNVXQIOFL9620-95-62 06:50:007.3[facility]annHEMATOLOGY 2011-03-14 06:50:000.0[facility] DlstraeOPQZNXILFP3696-53-41 06:50:000.7[facility] NgxkimeKXDGYUVDKR7994-83-45 06:50:002.6[facility] XfipojrCIXUKSGERL3912-93-27 06:50:00Slight 52*ABN*(03/14/2011 01:50:00) ??[facility]annHEMATOLOGY 2011-03-14 06:50:00Slight 51*ABN*(03/14/2011 01:50:00) ??[facility] RCNHQWIUNK7234-75-52 06:50:001+ 49*ABN*(03/14/2011 01:50:00) ??[facility] WYREVXYNTX0633-32-08 06:50:00Slight 50(03/14/2011 01:50:00) ??[facility] LCUJULIOCJ0827-35-20 06:50:0013.3[facility] CaojpwvLVFMSGQFYL9989-57-19 06:50:00 11.8[facility] FxyqvxfFGZJWXFDSV0815-10-17 06:50:004.18[facility]annHEMATOLOGY 2011-03-14 06:50:0090.6[facility] DjxskzjFTQGBVRADD9708-23-59 06:50:00 Test Item Value Reference Range Interpretation Comments MCH (test code = MCH) 31.8 pg 27.0-31.0 H [facility] ChqshykSNRAUONTJX8583-89-38 06:50:0037.9[facility]annHEMATOLOGY 2011-03-14 06:50:0010.0[facility] TvgjdnrZZYFQUXELP7485-25-37 06:50:0013.5[facility] CvgyfxlEANLVULRRY0787-60-16 06:50:91451.0[facility] OhsrprsICOQTGZKRF4560-47-01 06:50:0035.1[facility] QwaudorQVXPDDOJI3573-51-11 06:50:0027.0[facility] QALVBFSMV9800-64-52 06:50:003.2[facility] JyrljetSCMBMIEMY1137-92-72 06:50:002.9 [facility] SbudbqrIIWDVRZRJ8358-87-45 06:50:0032.0[facility]annCHEMISTRY 2011-03-13 06:50:006.1[facility] AiprroqUXNDIGMNC4339-52-62 06:50:00 Test Item Value Reference Range Interpretation Comments A/G Ratio (test code = A/G Ratio) 0.9 1 0.7-1.6 N [facility] NiqlkbqXCMVWMULU3748-15-52 06:50:000.3[facility]annCHEMISTRY 2011-03-13 06:50:000.4[facility] OzajpnxVFMIVOZWZ5174-48-52 06:50:000.1[facility] SmkandaEMRCLEJQE1493-06-21 06:50:57116.0[facility] HermannBEDSIDE GLUCOSE TESTING 2011-03-07 16:38:34135.0[facility]annBEDSIDE GLUCOSE HMAYNHZ5175-43-44 10:32:92743.0[facility]annBEDSIDE GLUCOSE RWPJYAV9414-88-76 02:38:93324.0 [facility] HuurmbcFKSGSGJBG4128-01-63 07:36:00>60.0[facility]annCHEMISTRY 2011-03-05 07:36:67403.0[facility] OrqtixaIPTLQHBAC8191-93-62 07:36:78388.0 [facility] ZammtpgLBHQPDPNL5291-50-31 07:36:003.8[facility]annCHEMISTRY 2011-03-05 07:36:008.4[facility] ZkmbgilTNNKWNUTW7565-89-65 07:36:0015.8[facility] VdntgfiHUVXPVBXK1368-47-06 07:36:0025.0[facility] WingohqNMXOETIFZ4871-74-85 07:36:0016.0[facility] SawtfzqKHUVCLEHV8478-06-45 07:36:000.9[facility] GXZGLRUGF0351-74-38 07:36:0077.0[facility] BksbcclFLNQEOHYEH4525-03-33 07:36:00 45.6[facility] XwxhzxpACRXUNASWP1192-61-98 07:36:0010.4[facility]annHEMATOLOGY 2011-03-05 07:36:003.5[facility] RectbqoHSWRDIRYSS5910-64-47 07:36:0038.5[facility] DfvzgjtPTRTQDAPFT8957-63-94 07:36:000.4[facility] IvbvpncQLAVWJIJRM1128-57-95 07:36:000.2[facility] FacglmnJXYKHFYUEM0515-61-19 07:36:002.0[facility] POADWBIRGU6941-91-50 07:36:005.8[facility] RjyowfvUEJYBRTEQW8105-42-04 07:36:004.9 [facility] FbsysewCKUSQMJHFW5763-51-36 07:36:001.3[facility]annHEMATOLOGY 2011-03-05 07:36:009.9[facility] WvtswgqEMGUYNCTPU2830-02-73 07:36:0092.6[facility] XvrjzntHKJOJUBCSF0593-68-86 07:36:003.08[facility] AsylggqPJEXPZJTAJ5090-36-32 07:36:0012.7[facility] FvldydeEXQUWWVUIP0204-76-78 07:36:00 Test Item Value Reference Range Interpretation Comments MCH (test code = MCH) 32.0 pg 27.0-31.0 H [facility] IcnkdksVFHCMRRITY8769-00-39 07:36:0028.5[facility]annHEMATOLOGY 2011-03-05 07:36:0034.6[facility] YcjifwbKFCQXHTRCM8366-61-41 07:36:90201.0 [facility] DwihdvcVVHGDEWDSN4545-47-70 07:36:0016.5[facility]annHEMATOLOGY 2011-03-05 07:36:009.1[facility] VcgkxruMJZDCXCIAT8390-10-67 10:21:97281.0[facility] TaqgyucXYAQQSMURU0585-37-41 10:21:0016.4[facility] YayxmmaMBSCIDNLVC0145-06-41 10:21:0033.6[facility] VvcjguwTXPAQTTRNC2441-56-41 10:21:00 Test Item Value Reference Range Interpretation Comments MCH (test code = MCH) 31.8 pg 27.0-31.0 H [facility] QvftpmdKQQZSFLCEW0698-96-41 10:21:0012.4[facility]annHEMATOLOGY 2011-03-03 10:21:009.4[facility] QecmeanGTKXSAHUEJ7558-50-82 10:21:0094.6[facility] RbaemqdDOHMNMRRHX3893-34-10 10:21:0030.8[facility] VwlqlzjKHUBXNXBJG6444-05-26 10:21:0010.4[facility] UhbxvntVOGJRBZIOS6357-37-36 10:21:003.25[facility] TSKSZPTRNS3638-86-31 10:03:0016.0[facility] UmbrespFJYPNLCIMY3664-56-49 10:03:00 9.1[facility] KgtevghTQKHLYXAPH5742-28-25 10:03:34894.0[facility]annHEMATOLOGY 2011-03-02 10:03:003.23[facility] CtpvaawVKGDXMYFKQ6737-84-67 10:03:0094.5[facility] JnjlsaaEIYKNJKRQC8216-27-36 10:03:0030.5[facility] JsiowuaZNIJMJKGSY6059-58-70 10:03:0010.3[facility] CznivkdCKEHJMMDAA8373-60-16 10:03:0033.6[facility] QSVFHFEXYK8945-95-50 10:03:0012.7[facility] HjsovvzZWVPOPMIFQ8322-61-96 10:03:00 Test Item Value Reference Range Interpretation Comments MCH (test code = MCH) 31.8 pg 27.0-31.0 H [facility] CenterWmvvwzhPVESLPLHWK4533-80-55 20:38:00??[facility] CenterannURINALYSIS 2011-03-01 20:38:00Clear (03/01/2011 15:38:00) [facility] 2011-03-01 20:38:00 Test Item Value Reference Range Interpretation Comments UA Spec Grav (test code = UA Spec 1.009 1 N Grav) [facility] CenterXhlzwbhWBGEIXTRGP1580-33-53 20:38:00Yellow *NA*(03/01/2011 15:38:00) [facility] ZyaffbcOWIVVVFJRQ1269-21-27 20:38:00 Test Item Value Reference Range Interpretation Comments UA pH (test code = UA pH) 5.5 1 5.0-8.0 N [facility] JfpolpnKFPIRSRSRD5831-44-34 20:38:00Negative mg/dL *NA*(03/01/2011 15:38:00) ??[facility] CenterGkfjwoxFXWPGMSKKN3701-73-31 20:38:00Negative mg/dL *NA*(03/01/2011 15:38:00) ??[facility] CenterVxtsbaaMIHEFYJUEG7066-61-14 20:38:00 Negative *NA*(03/01/2011 15:38:00) ??[facility] CenterOookuluPWOQWFPLNH4362-96-92 20:38:00Negative (03/01/2011 15:38:00) ??[facility] CenterTqjuaxfLBEDECSMYE0956-88-54 20:38:00<1.0[facility] CenterIhojcvmMUPDPLONMB8210-75-33 20:38:00Negative (03/01/2011 15:38:00) ??[facility] CenterEzngvtnYUKQJANXOT9458-26-02 20:38:00Negative (03/01/2011 15:38:00) ??[facility] CenterGmjmvnfESBWFTCDTL9798-68-13 20:38:00Few /LPF *NA*(03/01/2011 15:38:00) ??[facility] HcmuzjqCACPMTGJXI3342-13-88 20:38:00 Moderate /LPF *ABN*(03/01/2011 15:38:00) ??[facility] RmxeegzOGOSDCPMJQ2909-92-23 20:38:001.0[facility] SwylcfyTZKGPLGDTN7158-69-64 20:38:0010 mg/dL *ABN*(03/01/2011 15:38:00) ??[facility] HktcaqtQKIARNVDNA0366-84-89 08:19:005.7 [facility] LsoxguzGMUZIAYBZS6906-54-19 08:19:004.8[facility]annHEMATOLOGY 2011-02-28 08:19:001.0[facility] EryttjvCFDMEJZDTX7700-25-56 08:19:008.9[facility] CdzbgaiOJKKHYPGBG5190-03-72 08:19:002.8[facility] UdcjuotBMOSMXTKED8849-26-12 08:19:0047.3[facility] YfnrkmaWITKFLQOBL7454-63-59 08:19:0040.0[facility] KIBGRJONMY0084-77-01 08:19:000.1[facility] RjqweqqQANAIQZHSE2892-68-78 08:19:001.1 [facility] PyrzfveGYSSHUBRZC2960-27-21 08:19:000.3[facility]annCHEMISTRY 2011-02-27 08:43:002.8[facility] HsnicqjAPYVRCTLP8831-12-74 08:43:00 Test Item Value Reference Range Interpretation Comments B/C Ratio (test code = B/C Ratio) 14.0 1 6-25 N [facility] VosguhcTYGYPCEPJ8547-18-48 08:43:0013.8[facility]annCHEMISTRY 2011-02-27 08:43:00 Test Item Value Reference Range Interpretation Comments A/G Ratio (test code = A/G Ratio) 0.8 1 0.7-1.6 N [facility] DmqmmtsIMBREUYFY2349-96-08 08:43:005.0[facility]annCHEMISTRY 2011-02-27 08:43:008.4[facility] LcynnvkADKTRHTWW3934-84-47 08:43:0024.0[facility] VpgkxyvTZOIHSFNE8509-18-14 08:43:002.2[facility] SrelrblNASNUYPWT4375-51-49 08:43:000.3[facility] OtljasjRSVKMXMFD8587-85-51 08:43:0021.0[facility] YHRDCOBVB0539-33-09 08:43:0098.0[facility] VgngkbfHWPGNPCTT4505-23-96 08:43:0028.0 [facility] IeerkvxLQNIXVTST2498-78-75 08:43:0010.0[facility]annCHEMISTRY 2011-02-27 08:43:003.8[facility] FvhnwjwPKAYMGABE7319-51-22 08:43:63335.0[facility] WgassibWVILJWFFB3736-64-59 08:43:000.7[facility] ZohcsmsMWVOABHGD0825-61-54 08:43:42418.0[facility] UzdyryrDIZNMHYYC6683-03-74 08:43:24077.0[facility] EXYQPAPYWY0337-76-44 08:43:000.9[facility] RzofhwfYWAOZFZNMC0338-94-47 08:43:000.3 [facility] UfftjxmEOYTAOAVIQ2461-01-51 08:43:003.3[facility]annHEMATOLOGY 2011-02-27 08:43:000.1[facility] UeywpgsNOJFQDPOVH7466-83-32 08:43:001.2[facility] SvqlwwoYOAFZUDBQR1092-22-90 08:43:006.0[facility] HrypedpRARQTQKEQZ9090-96-77 08:43:008.3[facility] RtgvzorQIDQTCYOMY2813-17-34 08:43:003.1[facility] JQERDCHEKA8040-05-40 08:43:0056.6[facility] RiizwdxQCXSNBTIEB0446-79-25 08:43:00 30.8[facility]annBEDSIDE GLUCOSE LJPSKNA4522-56-77 22:17:11529.0[facility]annBEDSIDE GLUCOSE IOUGRIB6198-40-52 18:30:09516.0[facility]annBEDSIDE GLUCOSE KBEKHOD1028-19-23 11:15:51741.0[facility] DkvodpyCALDYOOUE7903-72-10 06:52:0015.6[facility] XqenwrlMHODPTTCW2531-77-36 06:52:0025.0[facility] UGGFVTODG0284-68-85 06:52:007.9[facility] BzdfnaeJVLPYTLYM5798-27-10 06:52:67740.0 [facility] FllhaqnKZLOPFZEL8554-26-25 06:52:003.6[facility]annCHEMISTRY 2011-02-26 06:52:000.5[facility] IuapziqHAUYQWIUR4179-21-09 06:52:22531.0[facility] QhhugtzDJCYNIUXT6657-64-60 06:52:009.0[facility] BysehgiUEPOZKVJV6939-23-01 06:52:32285.0[facility] MvutsqvEKOCTAWACF5442-60-96 06:52:0010.5[facility] SKBGMOXKVA0777-34-55 06:52:0031.2[facility] KqezslgDIEDEBJOJ7021-89-79 08:43:001.9 [facility] RzvwmwmJVVTJSZHK1796-96-50 08:43:007.9[facility]annCHEMISTRY 2011-02-24 08:43:36732.0[facility] AsxjghlIUCCSEKEW0595-99-59 08:43:0024.0[facility] UgfvtadLESDAILPO8186-43-59 08:43:92225.0[facility] HmctszqVTCEGYOOX4036-02-73 08:43:000.6[facility] PenjiltBJBKTVSAP2251-31-88 08:43:0012.0[facility] QZABNPJQZ0771-81-57 08:43:0089.0[facility] NvubgmxXVZQDWXRH0061-70-06 08:43:003.7 [facility] OrgjtnlFUTAGONTF6200-53-98 08:43:0015.7[facility]annHEMATOLOGY 2011-02-24 08:43:0030.7[facility] PqhmnsaTBTOARCWTD4018-72-15 08:43:0010.3[facility] XbawvzkUOWMXSWEXJ4652-61-89 08:43:35166.0[facility] ZbkqggdXQNPQBBAH2441-02-10 07:22:001.7[facility] YuroqrlVHDTZMKOG5908-38-48 07:22:004.64[facility] IDKMWQRFD9394-49-86 07:22:001.1[facility] RrtviylFPEQMWQZM3079-97-85 07:22:001.16 [facility] HsoilrrLYIZYEQVL8830-67-18 07:22:004.4[facility]annCHEMISTRY 2011-02-21 07:22:0016.9[facility] DsqsiyrOQQTUTZBM3444-73-03 07:22:006.0[facility] QhwniqkNDAUFROQZ2552-20-39 07:22:000.4[facility] JwnenioLJTTSMEVN5227-70-89 07:22:15665.0[facility] AudzowbWKOCVSWSB8103-62-97 07:22:004.9[facility] WJBOPYRUI6943-43-40 07:22:93639.0[facility] CowzhvhSZLCYZTFD6536-84-29 07:22:007.7 [facility] WlvzbvtPAHIBLFIT8753-23-85 07:22:03370.0[facility]annCHEMISTRY 2011-02-21 07:22:0019.0[facility] WsgcbglQWQHPDELD6402-95-79 07:22:003.7[facility] CmsmltoQJMIWBODFT8650-01-73 07:22:000.6[facility] EckcninGURXXACLUV4595-81-98 07:22:000.9[facility] GgkmoyxXXGLVARLLU2792-90-30 07:22:000.0[facility] INFYIVEXPN9526-61-85 07:22:006.9[facility] XhyedlgHDFPYGPVZJ3086-21-60 07:22:009.6 [facility] SzfuajnDBPJTUPZKC8448-33-37 07:22:005.2[facility]annHEMATOLOGY 2011-02-21 07:22:000.3[facility] ZjucvvwXKCOSXTFSX6840-44-17 07:22:002.3[facility] UfmeovdJTLQGXPMYE4542-22-81 07:22:0057.5[facility] FaxiqkuZPMEJFFAPA7865-13-93 07:22:0025.7[facility] ZtiwdqmNOIPXDRUPA5867-78-82 07:22:0034.1[facility] QGUKDPUYOY7992-95-92 07:22:70596.0[facility] JuiqrwfVZOHGAOJTJ9947-37-42 07:22:00 16.2[facility] BtvnszaHAMLLRCXLP0994-94-00 07:22:007.8[facility]annHEMATOLOGY 2011-02-21 07:22:0032.4[facility] PgoahqvRSHHFXIZUM4998-96-88 07:22:0096.0[facility] VajpvdrBZSLSPZYHD4147-93-08 07:22:00 Test Item Value Reference Range Interpretation Comments MCH (test code = MCH) 32.7 pg 27.0-31.0 H [facility] OyesqkbRHAXAEPXJP8973-31-06 07:22:003.38[facility]annHEMATOLOGY 2011-02-21 07:22:0011.0[facility] XkhnnmtHQOYFXZMHK0963-96-04 07:22:009.0[facility] PmhcmgnTGLYRKITL0006-10-74 14:50:003.1[facility] QukjpqqWYUUSEUET1306-93-13 05:50:003.4[facility] TejwcnqGYFLPXSSQ2292-77-76 05:50:005.08[facility] KHOEISNYP3859-60-67 05:50:001.28[facility] HivqlsnHFVDFUYTV8729-98-35 05:50:001.27 [facility] CytnawbDVIENZIPO1312-15-78 05:50:005.12[facility]annHEMATOLOGY 2011-02-20 05:50:0095.8[facility] WzrkxyrMQDUXFCLUO3827-01-56 05:50:19389.0 [facility] DpygflwNWZFUTTPEV9571-30-52 05:50:007.8[facility]annHEMATOLOGY 2011-02-20 05:50:00 Test Item Value Reference Range Interpretation Comments MCH (test code = MCH) 32.2 pg 27.0-31.0 H [facility] MpcgpzuDHFETQXFFT4929-98-48 05:50:0033.7[facility]annHE[facility]OLOGY 2011-02-20 05:50:0016.5[facility] VkgozpkBJNSHSMATN7557-30-21 05:50:003.19[facility] KtzdgzbJAVCQAEDPT9199-29-10 05:50:006.9[facility] NrnccqlMVGLZOXKBM4744-86-45 05:50:000.4[facility] FpkezauSNPTBPEYLC7023-13-70 05:50:000.0[facility] OPIOYHINHK5474-36-33 05:50:000.6[facility] NnxvtaiWCVONSJFYQ9526-01-03 05:50:00 63.4[facility] IxoahvrIJBDCIVHNF7094-60-43 05:50:0020.5[facility]annHEMATOLOGY 2011-02-20 05:50:009.3[facility] LizfimdYMAQHJLVZR0486-26-51 05:50:006.4[facility] KnnhelfAQEYASBBPG3458-86-40 05:50:000.4[facility] YxbfqscHFPWJUNHUM4760-08-24 05:50:004.4[facility] TqiklckUXVHWIELXO5842-89-90 05:50:001.4[facility] LCCCMDBKO3425-12-02 21:20:001.02[facility] MxuljrsBVCOLCQNU2456-33-35 21:20:004.08 [facility] JaqxnnmRAXOTGOWV7405-68-76 21:20:004.12[facility]annCHEMISTRY 2011-02-19 21:20:001.03[facility] RsfqvvpLNOEJURDN7545-08-21 21:20:0066.0[facility] CnwydsnJVVIOQWUE3182-58-88 21:20:000.8[facility] PlkonaiZTMPPKJES1253-16-82 21:20:002.3[facility] EvyvjpjGOROKDXBO9291-78-45 21:20:004.8[facility] OSULTGDTT8104-13-12 21:20:0067.0[facility] HwgqnefCACOJBWBB8562-67-92 21:20:002.5 [facility] LlwihrjWHPWWVSBQ6094-65-09 21:20:00 Test Item Value Reference Range Interpretation Comments A/G Ratio (test code = A/G Ratio) 0.9 1 0.7-1.6 [facility] NoxeswpPHUKUZFOS9758-56-41 21:20:83645.0[facility]annCHEMISTRY 2011-02-19 21:20:00 Test Item Value Reference Range Interpretation Comments B/C Ratio (test code = B/C Ratio) 20.0 1 6-25 [facility] QxpealaXINIIZJOQQ5026-03-19 21:20:00 Test Item Value Reference Range Interpretation Comments PTT (test code = PTT) 29.4 s 22.9-35.8 [facility] ObdyaiaNJFNBTDYPH5503-13-14 21:20:00 Test Item Value Reference Range Interpretation Comments PT (test code = PT) 13.9 s 12.0-14.7 N [facility] JaslbksNCWVCOYZIS3025-55-19 21:20:00 Test Item Value Reference Range Interpretation Comments INR (test code = INR) 1.07 1 0.85-1.17 N [facility]qxbTQZHKCBYTM1461-23-93 21:20:003.4[facility]HE[facility]OLOG[facility] 2011-02-19 21:20:00 Test Item Value Reference Range Interpretation Comments MCH (test code = MCH) 32.2 pg 27.0-31.0 [facility] BzclukhBGYMDCOANE3268-24-62 21:20:0095.7[facility]annHEMATOLOGY 2011-02-19 21:20:0033.6[facility] EqxydsdOLXOKMDWMR3610-85-52 21:20:0016.7[facility] NmvqcbsMMLCKWNRBM8920-96-10 21:20:007.8[facility] IztnupzHDPDPXOWWD8173-48-38 21:20:48691.0[facility] GcwtgqdBDBIMSMCNM6478-23-72 21:20:007.4[facility] SWTXCGIDWG4057-00-87 21:20:008.7[facility] SuibkcjNFRLMOEEXL8381-32-69 21:20:00 15.6[facility] EwnqabkXFDCJCQINW1951-69-57 21:20:001.1[facility]annHEMATOLOGY 2011-02-19 21:20:000.6[facility] RnsfvndGQNDKLFYJL1240-09-04 21:20:005.3[facility] XdhbucaQWHZDENTSY2299-49-04 21:20:005.1[facility] ZxnhltmLWKGALPQSJ0726-88-47 21:20:000.6[facility] DndrdqkNRGJMBXGLE2535-31-63 21:20:0069.8[facility] YEUBVWYUXS8745-87-17 21:20:000.4[facility] PpffbtwCRHGIMLIZE5837-84-15 21:20:000.0 [facility] PoliqoaOMHZBNBEM6090-92-52 21:00:001.1[facility]annCHEMISTRY 2011-02-19 17:32:91179.0[facility] XfsvyhiOHPERSDDE3381-06-16 17:32:000.6[facility] FdietooLOGVWERWS3205-82-80 17:32:001.08[facility] WfjnxfwZOAUFNGPT6295-46-09 17:32:41814.0[facility] TysdslaXQMQDLGUZ2392-20-54 17:32:0029.0[facility] QNWUMJLRF8199-25-72 17:32:003.3[facility] EzbndjeVSWLFRLHJ5532-92-28 17:32:63753.0 [facility] IrbprlkUJRUQRPVA6161-33-14 17:32:0022.0[facility]annCHEMISTRY 2011-02-19 17:32:00-4.0[facility] KzwrdzyORVNVRSJM4157-13-49 17:32:00 Test Item Value Reference Range Interpretation Comments POC A pH (test code = POC A pH) 7.33 1 7.35-7.45 L [facility] GxwpwjdIABRALQOK3949-61-21 17:32:0041.0[facility]annCHEMISTRY 2011-02-19 17:32:0037.0[facility] WdsmcdhRBPDMKKFT1884-61-46 17:32:21318.0[facility] HermannBODY WVCRWJ0161-68-13 16:00:0039.0[facility]annBODY QJKBQW3941-52-05 16:00:0070.0[facility]annBODY HGFXVZ4586-03-66 16:00:001.0[facility] BODY EKWQBE2370-10-47 16:00:00Light Red *ABN*(02/19/2011 11:00:00) ??[facility]annB[facility] OXCYAW5212-51-54 16:00:00Slight *ABN*(02/19/2011 11:00:00) ?? [facility]annB[facility] QZUFKJ7915-88-13 16:00:00Colorless (02/19/2011 11:00:00) ?? [facility]annB[facility] QGNMRT5599-16-02 16:00:157701.0[facility]annB[facility] FLUIDS 2011-02-19 16:00:00xxxxxxx (02/19/2011 11:00:00) ??[facility]annCHEMISTRY 2011-02-19 15:35:39919.0[facility] OfuttwoXHXOMAALD9807-84-10 15:35:003.2[facility] CrhmxskQTLILDVTF1643-12-80 15:35:001.1[facility] IccsrxaPAXXDXEDD9840-54-67 15:35:000.7[facility] WxtvgpeMDQLEUJSF4614-55-82 15:35:00 Test Item Value Reference Range Interpretation Comments POC A pH (test code = POC A pH) 7.35 1 7.35-7.45 L [facility] BahzfooQXHGOYEPX8762-83-92 15:35:0037.0[facility]annCHEMISTRY 2011-02-19 15:35:00-3.0[facility] QtzsnnwMIYWUXKKK6116-52-25 15:35:0041.0[facility] NwttdyqDKXSOCDDW0682-85-62 15:35:06411.0[facility] SoeatnrSUQMRUPNK2225-80-08 15:35:0023.0[facility] FqtkicxUGFSNSNRK5868-05-17 15:35:24294.0[facility] WONXZRPTB6636-71-82 15:35:47507.0[facility] QqtmmtfRGDIONZEH0916-89-95 15:35:00 29.0[facility]BL[facility] KHPFFOY0902-56-04 15:33:00Negative (02/19/2011 10:33:00) ??[facility] YxbncnpQRFLPJEUA8768-63-10 14:06:003.7[facility] VQUFSHZEF1903-51-03 14:06:001.1[facility] UrsuvhjPNZUHXILG3993-66-95 14:06:25222.0 [facility] PhnaknuFPTUOHUYM4376-75-38 14:06:001.0[facility]annCHEMISTRY 2011-02-19 14:06:39299.0[facility] AtevcaaWWAGZMKKY0407-16-78 14:06:00 Test Item Value Reference Range Interpretation Comments POC A pH (test code = POC A pH) 7.43 1 7.35-7.45 N [facility] TqcxvhgYOHSQWAJG3137-12-92 14:06:23352.0[facility]annCHEMISTRY 2011-02-19 14:06:00-1.0[facility] QvbxwccUORHGSHQJ1734-89-99 14:06:0023.0[facility] HqzcshrYCTSPWSPS7463-11-70 14:06:47648.0[facility] FnsrvemAHJASJSDE8245-41-18 14:06:0034.0[facility] ZictwpoTIDOUHOEP4471-86-95 14:06:0037.0[facility] YTQLQGLKN1727-71-42 14:06:0034.0[facility] BmiouqbQQQSEBKQQ9081-51-66 11:00:0012.0 [facility] QkextvmSVGICVEZE7214-75-97 11:00:29564.0[facility]annCHEMISTRY 2011-02-19 11:00:0012.0[facility] KagknyzXXPSBUPPF8440-10-96 11:00:000.6[facility] JuvackaLOBCTRXWB9694-33-68 11:00:0024.0[facility] QybvgwlVHIHLABYL1153-92-75 11:00:007.9[facility] YnlbylfUATVZCTJX2162-96-80 11:00:004.0[facility] GJSEOUUPQ3139-84-83 11:00:82104.0[facility] LprbdgcELNLEQVSN5423-78-83 11:00:00 99.0[facility] BlalhjgLYCMAUXRNL8551-65-78 11:00:002.4[facility]annHEMATOLOGY 2011-02-19 11:00:000.7[facility] StltomkTUGKVHHWQC8502-78-51 11:00:000.0[facility] YdwnbnmKAHQPKXXLQ5914-40-58 11:00:000.6[facility] UwougfaJJYYKXJMQK4353-00-97 11:00:002.4[facility] YlvfvmwFPFFGVLTXS0425-46-23 11:00:0010.9[facility] XHWNJCADDU7586-97-63 11:00:000.8[facility] ZqinreeEDDBHTHZUK6617-91-86 11:00:009.4 [facility] EkpekflKEFMOKLWJW9210-46-33 11:00:0039.3[facility]annHEMATOLOGY 2011-02-19 11:00:0039.6[facility] BlvovoxDWGFRKEEZC1147-49-07 11:00:008.2[facility] NisfkphHOYUQLGUAF4869-05-95 11:00:19287.0[facility] DbygniiKEORRBGEST2309-41-83 11:00:00 Test Item Value Reference Range Interpretation Comments MCH (test code = MCH) 32.9 pg 27.0-31.0 H [facility] MzbktlhKXWXUDQWGQ8552-84-93 11:00:0094.8[facility]annHEMATOLOGY 2011-02-19 11:00:0034.7[facility] FwzoztaMPQSGMSCVX2773-20-85 11:00:0016.4[facility] OadxytdSPITHNBNAN6289-51-72 11:00:0010.7[facility] XbjfgoqPXVURWUKFF8767-80-72 11:00:003.26[facility] RggfnepGBLWVSASHQ2118-81-32 11:00:0030.9[facility] URRHYLSOCI0507-04-24 11:00:006.2[facility] XmvkzdpTDGAJFXTXM2565-19-63 11:00:00 Test Item Value Reference Range Interpretation Comments INR (test code = INR) 1.0 1 0.85-1.17 N [facility] ViezrdqERTFVSXCTT9190-73-25 11:00:00 Test Item Value Reference Range Interpretation Comments PT (test code = PT) 13.2 s 12.0-14.7 N [facility]TswtmzbHXZUZNEFUP7954-01-28 11:00:00 Test Item Value Reference Range Interpretation Comments PTT (test code = PTT) 30.3 s 22.9-35.8 N [facility] XARCCKM8227-00-54 10:22:83627.0[facility] BEDSIDE GLUCOSE JJAKCCS4021-82-20 02:28:14763.0[facility]ann[facility] NYQGGGG4696-43-17 00:46:13976.0[facility] QmvuzuvPRFPUDFYLJ4741-25-83 08:39:0094.3 [facility] SckaldiDQWLAUQDPT6751-85-23 08:39:0033.1[facility]annHEMATOLOGY 2011-02-18 08:39:0016.6[facility] QqyokqkPVHYFKKZEI7149-81-00 08:39:00 Test Item Value Reference Range Interpretation Comments MCH (test code = MCH) 32.8 pg 27.0-31.0 H [facility] BbrnrqwDZKVNYHXNA0339-70-80 08:39:0034.7[facility]annHEMATOLOGY 2011-02-18 08:39:007.9[facility] PehgtozACPEWPRSUR6575-16-47 08:39:11318.0[facility] KaarghyXBNPLZTUAP3971-38-65 08:39:006.4[facility] PopkmwkCZZQFBKUWK7700-88-63 08:39:003.51[facility] RsfgjfeZFOWLDOPHH5901-95-59 08:39:0011.5[facility] PTZELLSTLR3726-07-17 07:48:008.1[facility] KlgbzabLDDWIAIGPL1122-37-63 07:48:00 Test Item Value Reference Range Interpretation Comments MCH (test code = MCH) 32.7 pg 27.0-31.0 H [facility] TtexxtvPMKTYSKFNM1473-89-48 07:48:0095.1[facility]annHEMATOLOGY 2011-02-15 07:48:0034.3[facility] GyromcjKYPWNTPLEN1074-59-60 07:48:56840.0 [facility] TuvghybNTKDQOIFEZ2549-20-25 07:48:0016.5[facility]annHEMATOLOGY 2011-02-15 07:48:0012.9[facility] YbepvioSLKTVOCMCQ6775-11-88 07:48:0034.1[facility] FlgdcqcTDPCCTFFID1214-62-30 07:48:0011.7[facility] QaxarhmGUABZXNNEQ6045-74-59 07:48:003.58[facility] ElhcxyoVBAHBWSSHH6223-87-66 07:48:000.1[facility] GURWDUOVOO5057-87-06 07:48:000.4[facility] QakarbjXKXTAMIVLG5933-16-48 07:48:000.6 [facility] QiyhqvwWQBMWLAXEN4987-64-01 07:48:004.8[facility]annHEMATOLOGY 2011-02-15 07:48:0026.8[facility] UhmwjrqQXRTUSZSUP6578-78-09 07:48:003.5[facility] JpbtogmSRARWVMYCZ0719-80-92 07:48:008.3[facility] MeecbmmJRBVNYHUBC0148-73-80 07:48:000.8[facility] WbcqcjeEPGRHGIMNH9777-32-46 07:48:003.0[facility] LUXKTFWJDN2564-62-02 07:48:0064.6[facility] BamvcbyFRYJCAXJT3494-09-06 09:47:003.1 [facility] VntqeepJOVGIOTLL9178-43-04 09:47:002.7[facility] HermannCHEMISTRY 2011-02-13 09:47:005.8[facility] UphhmgsDHEPWAZKO7697-70-56 09:47:00 Test Item Value Reference Range Interpretation Comments B/C Ratio (test code = B/C Ratio) 43.0 1 6-25 H [facility] BcpajycTRADWKIVD9921-63-14 09:47:00 Test Item Value Reference Range Interpretation Comments A/G Ratio (test code = A/G Ratio) 0.9 1 0.7-1.6 N [facility] DxinjfxLTZXYYUQZ3678-74-15 09:47:0052.0[facility]annCHEMISTRY 2011-02-13 09:47:24441.0[facility] JplypgrKCGQUXOJH2220-13-40 09:47:00>60.0 [facility] CwbjagrUFDUBWQXV2261-79-33 09:47:0016.9[facility]annCHEMISTRY 2011-02-13 09:47:008.5[facility] JcctvvxSBWBOJZMG1281-18-76 09:47:000.6[facility] RcvjvspCWNLFMVCX1965-88-12 09:47:0049.0[facility] XxwurnyWVYSOEWPX2479-10-28 09:47:0097.0[facility] ZctydhuULMGRZGVE4053-86-23 09:47:004.9[facility] EDRIDURSK2139-36-15 09:47:000.4[facility] PmfdwrzTFEMIJBXL0809-52-11 09:47:63318.0 [facility] RszcrydUTKWUSWQU6865-60-31 09:47:67642.0[facility]annCHEMISTRY 2011-02-13 09:47:0017.0[facility] KstscovLYQLUPAQY4792-64-38 09:47:0025.0[facility] TpxasavMDEUWQJTB4056-99-69 10:09:0018.6[facility] ZcilmynRSMSKRBHT3136-36-57 10:09:008.3[facility] TrtywetMHWHZPESO1169-66-42 10:09:0063.0[facility] KSYVYWWHW1965-10-61 10:09:0019.0[facility] RcwvlumDRNZLUGMG7009-97-22 10:09:000.7 [facility] VyavcyeWQTYEFBNR3032-72-24 10:09:38626.0[facility]annCHEMISTRY 2011-02-12 10:09:0097.0[facility] AvxpnpvBAXSVHAHY6349-71-87 10:09:003.6[facility] WrhqrdtMFECFWEHX5890-23-19 10:09:0023.0[facility] TfwetgiSVFHGSBMZW0815-49-61 10:09:001.0[facility] FicrcubAIPDMPIQHF5682-28-23 10:09:000.1[facility] QWOVQDVOQD4904-73-84 10:09:000.2[facility] KmwcjtvSSBMPNIEKY0083-54-96 10:09:004.9 [facility] HscnoeoQMZYHXXMPR3280-00-25 10:09:000.7[facility]annHEMATOLOGY 2011-02-12 10:09:0012.2[facility] XffdgedERGVOXOFVN8638-72-75 10:09:005.5[facility] NamdmbgNSSOLJBXGA7967-79-70 10:09:001.1[facility] ZfkzexjHOXLKFFALN3674-46-64 10:09:0066.2[facility] JlwlbyyAGVBAFPHHC6953-97-81 10:09:0026.5[facility] BBIAPCIAI5628-99-31 19:00:001.8[facility] AfhbxvsBLVHTULXP8269-37-96 19:00:0057.0 [facility] MtugugwVJAKNDFBU3099-06-70 19:00:006.8[facility] HermannCHEMISTRY 2011-02-11 19:00:003.2[facility] RkmwwuwKHMYXJFHJ0824-01-73 19:00:003.6[facility] ToibfzoTSWAEVHPG6026-89-03 19:00:00 Test Item Value Reference Range Interpretation Comments A/G Ratio (test code = A/G Ratio) 0.9 1 0.7-1.6 N [facility] KkhajetXSOFOIKME3326-19-85 19:00:0059.0[facility] HermannCHEMISTRY 2011-02-11 19:00:36205.0[facility] AedtexrBSXMERQVZ3722-47-61 19:00:000.7[facility] VcmdjhgHPESWGCWJ9975-94-27 19:00:00 Test Item Value Reference Range Interpretation Comments B/C Ratio (test code = B/C Ratio) 45.0 1 6-25 H [facility] ZqhdrnjNNNRLFIEDE4316-18-64 19:00:001+ *ABN*(02/11/2011 14:00:00) ?? [facility]annST[facility] FFVVG8237-47-93 05:59:00None Seen 4(02/11/2011 00:59:00) [facility] BrpglujUBSZLOIZK4133-88-84 19:39:00 Test Item Value Reference Range Interpretation Comments eGFR (test code = eGFR) 48.0 1 [facility] CyugeyfDGSOUSGNV1876-67-79 19:39:003.0[facility]annCHEMISTRY 2011-02-10 19:39:00 Test Item Value Reference Range Interpretation Comments A/G Ratio (test code = A/G Ratio) 1.0 1 0.7-1.6 N [facility] IauxgxiVVXSZZRNK3262-21-56 19:39:00 Test Item Value Reference Range Interpretation Comments B/C Ratio (test code = B/C Ratio) 23.0 1 6-25 N [facility] WiwnpnhASOIQTHTB7903-48-08 19:39:0031.0[facility] HermannCHEMISTRY 2011-02-10 19:39:003.1[facility] XyaztqnVPGVWOWDX7674-46-46 19:39:0064.0[facility] TmpxpmuHPGHDWEWQ0608-71-80 19:39:006.1[facility] SfzmuapVIJGSNUBV4002-65-92 19:39:000.5[facility] IioboujMWPOOPCAE9749-19-29 19:39:77255.0[facility] ACKGZBMODY3425-11-16 10:19:00Slight (02/08/2011 05:19:00) ??[facility] XCAGMLFEBI6093-27-02 10:19:00Slight (02/08/2011 05:19:00) ??[facility] AOIZCHHTKI0497-19-21 10:19:001+ *ABN*(02/08/2011 05:19:00) [facility] BGYYZTWXOV5257-83-60 10:19:00Normal (02/08/2011 05:19:00) ??[facility] LYEWFNNFUS7947-89-34 08:33:000.0[facility]annBLOOD BANK GPNPJLZ2566-00-43 19:12:00Negative (02/05/2011 14:12:00) ??[facility] IzrtcjyPDRFYGJRJ2107-13-72 02:09:0064.0[facility] MwazxsqYDOUPCMPL6664-05-12 02:09:000.03[facility] AHIGMVULI8719-34-61 18:20:0071.0[facility] JzoxquaHPTOROOSI1554-72-73 18:20:000.05 [facility] ExanfjvWQQPFOJRVB9646-95-97 22:21:00[facility]annURINALYSIS 2011-02-02 22:21:00Negative (02/02/2011 17:21:00) ??[facility]annURINALYSIS 2011-02-02 22:21:00<1.0[facility] TwgijumWZTORBDNPN0445-51-87 22:21:00 Occasional /HPF *NA*(02/02/2011 17:21:00) ??[facility] ErmicohUTIPIMZISJ5158-87-24 22:21:00Negative (02/02/2011 17:21:00) ??[facility] CenterZtqadvmYAACNERMXJ5334-74-25 22:21:00Negative mg/dL *NA*(02/02/2011 17:21:00) ??[facility] 2011-02-02 22:21:00Negative *NA*(02/02/2011 17:21:00) ??[facility] BGUTWOJUUD8449-86-16 22:21:00Negative (02/02/2011 17:21:00) ??[facility] JMLSSWPHMJ7083-69-94 22:21:00Negative mg/dL (02/02/2011 17:21:00) ??[facility] CenterHzvfcmrFFDAYFRNBT2512-05-76 22:21:00Negative mg/dL *NA*(02/02/2011 17:21:00) ?? [facility] CenterZerhashNKYGDHZHGT6610-99-09 22:21:00Light Yellow *NA*(02/02/2011 17:21:00) ??[facility] BtpyejdQTDGBQTOSM3377-14-60 22:21:00Clear (02/02/2011 17:21:00) ??[facility] BnqavvfCYEHRYICWP1332-72-40 22:21:00 Test Item Value Reference Range Interpretation Comments UA Spec Grav (test code = UA Spec 1.004 1 N Grav) [facility] LjjjwwbVTCOJCFYNU0083-21-03 22:21:00 Test Item Value Reference Range Interpretation Comments UA pH (test code = UA pH) 7.0 1 5.0-8.0 N [facility] VjokwdnKKOYGWFMI3252-99-06 10:30:000.98[facility] HermannCHEMISTRY 2011-02-01 10:30:000.711[facility] HurjdygHXDQELMXQI6930-37-07 10:30:0019.4 [facility] HermannBEDSIDE GLUCOSE PCJNEHE3314-13-63 10:46:10927.0[facility] KZLZPZUYY4978-20-47 08:36:002.9[facility] WqdxnkpZULFDHEIF4773-09-03 08:36:0024.0 [facility] OtozxbnRWJBYQUVU9291-06-73 08:36:007.7[facility]annCHEMISTRY 2011-01-31 08:36:88031.0[facility] ZozvurlLVEOTOSQM9360-95-83 08:36:96616.0 [facility] OtkvgeoZJZBFDWVP6241-41-40 08:36:003.9[facility] HermannCHEMISTRY 2011-01-31 08:36:0017.0[facility] AhkvpizQONJZCJOM4940-59-99 08:36:000.7[facility] UqfsxjtWGWQQDMQS5839-57-89 08:36:20551.0[facility] RccpaeiXGKJJFBBY1994-19-90 08:36:0017.9[facility] LwfcndeQDMRBIZNI3668-94-04 08:36:001.9[facility] XULRHVAYT1075-92-21 08:36:001.13[facility] OxfksfzBEGHHLLLB6038-96-30 08:36:001.09 [facility] JmvytiiZVIAWANEC5860-30-16 08:36:004.52[facility] HermannCHEMISTRY 2011-01-31 08:36:004.36[facility] ZdkaetkMSTNTRKAHD7149-87-33 08:36:00Slight *ABN*(01/31/2011 03:36:00) ??[facility] WqsorbsPURJELAGRD0897-93-78 08:36:001.4 [facility] MkubrpvKGITHDBCNG4485-74-32 08:36:003.0[facility]annHEMATOLOGY 2011-01-31 08:36:0018.6[facility] CkvrsdlXGDSTFPXJR7082-93-00 08:36:001.6[facility] ZiigvhcEDAAJLXASD2233-04-92 08:36:002.0[facility] FktxsgsPCHSWSPLJI9799-03-88 08:36:007.0[facility] ZvdbxibUZYQNVRVUU8074-65-86 08:36:006.0[facility] MRWDGHWGTL1286-10-86 08:36:0079.0[facility] PxwqgyhAFNXYWLKDB6359-67-97 08:36:00 2.0[facility] LvgjeqqTJGGBFASYS3139-09-47 08:36:00Slight (01/31/2011 03:36:00) ?? [facility] FlvcxwmUNAYEZNROI6316-35-59 08:36:00Slight (01/31/2011 03:36:00) ?? [facility] WvzpgfbHPWQZSQLEA3473-37-38 08:36:00Present *ABN*(01/31/2011 03:36:00) ??[facility] UhmdjhdGEWWYPQFMP6953-51-03 08:36:000.0[facility]annHEMATOLOGY 2011-01-31 08:36:001.0[facility] IclukguBQOMHEAOFY0234-67-04 08:36:0015.3[facility] LyllmveNHOGYBWHDC8092-59-03 08:36:0010.1[facility] OytlmhpBWOWHRSMUZ3469-73-40 08:36:86297.0[facility] YnatbtpBUKHQYTRQK2501-87-58 08:36:0037.3[facility] JPPRXXINUD8323-43-85 08:36:0032.7[facility] UhqtbkcVLPVPMGPXE6880-96-80 08:36:00 94.8[facility] HdzcasyKNJSSQVFWA7522-09-41 08:36:00 Test Item Value Reference Range Interpretation Comments MCH (test code = MCH) 31.0 pg 27.0-31.0 N [facility] ZbhzbefFEZTGVKSWP6973-61-73 08:36:0023.0[facility]annHEMATOLOGY 2011-01-31 08:36:003.93[facility] ZvautbfWAJXMMZYVP3266-91-24 08:36:0012.2[facility] HermannBEDSIDE GLUCOSE ZLURVGG4625-98-71 05:49:18549.0[facility] HermannBEDSIDE GLUCOSE OAGJSNC9353-09-45 01:36:46017.0[facility] OsvixpiIYXMSRVWD8149-90-84 15:02:002.7[facility] OvakdhmFIROJCCNJ9423-81-02 15:02:003.7[facility] OAMNWUTCM4437-76-82 15:02:004.2[facility] LennceiOGJOTVWSI0043-40-75 15:02:004.24 [facility] DikspezWZZSAHTGL3616-69-56 15:02:001.05[facility]annCHEMISTRY 2011-01-29 15:02:001.06[facility] VhwzibnBPWOUUAJQ6819-89-03 15:02:002.4[facility] YbqaquhVXZKQWOWF1341-63-58 15:02:0015.0[facility] FdcaxcoDIOPLHMIO2215-50-89 15:02:0023.0[facility] WktdrmyAUCJLYKYV9734-35-94 15:02:000.8[facility] ZQXISAKCU6080-37-26 15:02:39272.0[facility] MatfjorJXFEUOEUK3114-24-25 15:02:004.0 [facility] SslpmhbKESXRHFMP3929-11-40 15:02:17192.0[facility] HermannCHEMISTRY 2011-01-29 15:02:62719.0[facility] NzfpuntEDSTIPNES0341-69-98 15:02:0024.0[facility] QemxupnHXIHAWTTA1542-89-59 15:02:007.8[facility] NqaxtqfPVSCJOXGDI6914-81-35 15:02:00Slight *ABN*(01/29/2011 10:02:00) ??[facility] IbqjonwWEAFKKJNYB6374-06-71 15:02:00Slight (01/29/2011 10:02:00) ??[facility] JwqcttqOFGVUHFVYZ4954-99-59 15:02:000.0[facility] GtonhvyICAFIPKJRK7999-18-03 15:02:001.0[facility] ZNQWKBKTRL0716-90-37 15:02:0081.0[facility] PqoueplFOSHCYARIE8635-63-22 15:02:00 9.0[facility] KxtrdqcWHUISBHZCW9415-46-67 15:02:005.0[facility]annHEMATOLOGY 2011-01-29 15:02:001.0[facility] NqphvbcFXQNEFCTTE2013-36-13 15:02:002.0[facility] SxexmvuNEMPGGMLSY5979-60-56 15:02:002.0[facility] NqrdzenXUFJFUYQUK0350-52-42 15:02:001.0[facility] PutenasVBFUJKIISZ4718-96-64 15:02:001.8[facility] IUXLIEDDOS4195-05-74 15:02:0016.3[facility] FwhfeujCZFQNTENUL1089-29-48 15:02:00 9.4[facility] ToemwnxETTUSNWMLA0615-30-44 15:02:0033.9[facility]annHEMATOLOGY 2011-01-29 15:02:0094.0[facility] LxbhnoiFWQZXIEFWV2867-07-46 15:02:00 Test Item Value Reference Range Interpretation Comments MCH (test code = MCH) 31.5 pg 27.0-31.0 H [facility] ZtyxiimUJTGUSZAIF2966-67-40 15:02:0033.6[facility]annHEMATOLOGY 2011-01-29 15:02:0016.1[facility] YhcbjjqCZHCIDDESY3429-29-28 15:02:12678.0 [facility] HowcpuwHUTQEFSSDD9682-41-87 15:02:0019.6[facility]annHEMATOLOGY 2011-01-29 15:02:0011.4[facility] QgfgjevMVPBZBOULJ1409-00-89 15:02:003.61[facility] NojandkWWBJWZLRY5963-34-50 06:30:0014.2[facility] AungbxvIJRXQTBHW5596-76-56 06:30:35895.0[facility] VqabhryUMGHCAYAA2588-68-42 06:30:32553.0[facility] HDSKVYBBG5467-88-26 06:30:003.2[facility] TnmzhwuGMOHTAMHS5038-09-41 06:30:0025.0 [facility] VvbdyvmITFPCRBOH1333-32-31 06:30:007.5[facility]annCHEMISTRY 2011-01-28 06:30:0057.0[facility] QghgsagRTQHBIXHY7410-00-81 06:30:0021.0[facility] KwtfgkkIDZEPSGKI6577-42-58 06:30:000.7[facility] TptznuaSTFIDPUYC7719-20-19 06:30:003.2[facility] SnpvzmtMZWHENMTJ1151-71-88 06:30:002.2[facility] KSSDSATAU4248-90-68 06:30:001.09[facility] GqtkuyeEKANUPXQW2047-03-01 06:30:001.06 [facility] GegdfewTWJWYMSLK6717-68-80 06:30:004.36[facility]annCHEMISTRY 2011-01-28 06:30:004.24[facility] XxgoifkBKTBMDFCJL4858-58-62 06:30:98823.0 [facility] MyjufyaWUBMPPYKYG5158-57-74 06:30:0010.4[facility]annHEMATOLOGY 2011-01-28 06:30:00 Test Item Value Reference Range Interpretation Comments MCH (test code = MCH) 31.1 pg 27.0-31.0 H [facility] CjorcqrQRBMEBNXRV1150-00-20 06:30:0033.3[facility]annHEMATOLOGY 2011-01-28 06:30:0016.0[facility] ObuhvnbZCGRRCNDQJ3666-91-04 06:30:0032.3[facility] WpcrktyAISSLBGAVM2326-83-28 06:30:0093.5[facility] LzfjkyrTFDURVHGRZ5840-87-19 06:30:003.45[facility] GhcwtyyUDJMMRPLKB3247-64-12 06:30:0010.7[facility] EVMBLHHGEF8880-32-56 06:30:0020.1[facility] JtdymzcVWSSQIDNYP4368-17-12 06:30:00 0.0[facility] GevbvutKGASRLQCRJ7427-32-08 06:30:004.1[facility]annHEMATOLOGY 2011-01-28 06:30:0018.0[facility] QtpfkymFIDAVPZYDU6694-88-22 06:30:000.0[facility] JmzjbkdSIGDPFOKWM0964-49-71 06:30:006.6[facility] EfhtcsaDSJGFPPHKN8778-77-30 06:30:000.0[facility] CaudqxrBVLKWWBMTZ0555-81-23 06:30:000.0[facility] WYFXOOIORL1816-03-44 06:30:000.8[facility] UeetqznOMVBSLIHLA3553-42-88 06:30:001.3 [facility] UhjgzrfYQTRGINETF5282-01-14 06:30:0089.3[facility] HermannCHEMISTRY 2011-01-27 09:07:16535.0[facility] QcnfzjgTLGHRJDTR1843-97-38 09:07:00 Test Item Value Reference Range Interpretation Comments POC A pH (test code = POC A pH) 7.56 1 7.35-7.45 [facility] JjevllmBGLSATLIU1796-34-37 09:07:88672.0[facility]annCHEMISTRY 2011-01-27 09:07:0037.0[facility] GldwireWPVPTNOSM9017-39-21 09:07:004.0[facility] UsyfictKTPZVVALT9350-94-73 09:07:92080.0[facility] HkaglnnSUBJNXIUN0353-92-73 09:07:0025.0[facility] UxvlxdbIYPAVNMUZ0683-33-15 09:07:0028.0[facility] HTVJKGMZV8763-22-68 05:14:48960.0[facility] NbetcaoIZJRZAXENF7288-14-80 05:14:00 Test Item Value Reference Range Interpretation Comments PTT (test code = PTT) 25.2 s 22.9-35.8 N [facility] CbriygmGDSMHALXYF9963-49-44 05:14:00 Test Item Value Reference Range Interpretation Comments PT (test code = PT) 15.8 s 12.0-14.7 [facility] FxafzujPZQCVLRZWK1911-87-10 05:14:00 Test Item Value Reference Range Interpretation Comments INR (test code = INR) 1.26 1 0.85-1.17 H [facility] AzwjpbcEFFYYMWEOE2036-19-13 05:14:000.0[facility]annHEMATOLOGY 2011-01-27 05:14:000.2[facility] ApsjllkUJPJKCGHCD2145-66-77 05:14:000.0[facility] UxnwjztDTSKWMKTHO8581-43-23 05:14:000.0[facility] NpxmrzjIQUKWRBQO7534-79-18 20:09:27010.0[facility] DkwsocbBONPTTRITI2714-85-76 20:09:000.0[facility] OKUTPSULVQ9659-13-09 20:09:000.0[facility] KxwjnhvBEMAKAYUAW9461-51-55 20:09:000.0 [facility] SduywfiJQBWYHVDRC4858-78-32 20:09:000.1[facility]annHEMATOLOGY 2011-01-26 20:09:00 Test Item Value Reference Range Interpretation Comments PTT (test code = PTT) 29.8 s 22.9-35.8 N [facility] YyrtqagNRJNGNDFNF1328-23-68 20:09:00 Test Item Value Reference Range Interpretation Comments PT (test code = PT) 15.4 s 12.0-14.7 [facility] PnsuwihHEUSGEWZYD3376-30-51 20:09:00 Test Item Value Reference Range Interpretation Comments INR (test code = INR) 1.22 1 0.85-1.17 H [facility] SazqbunDNXQOBCOL1535-83-69 18:43:01237.0[facility] HermannCHEMISTRY 2011-01-26 18:43:000.8[facility] HyfrdskAKNRVEFIN5495-13-29 18:43:001.17[facility] AfvhcsrOMILIHYMH8701-25-44 18:43:003.[facility]orial HqfxoptSDITRIETR2156-90-86 18:43:56972.0[facility] VndyzqeIIQWSIKQA7659-70-97 18:43:0080.0[facility] DBIWMGRAR3619-45-46 18:43:0040.0[facility] QylwrshFDKNNPOAC7635-01-84 18:43:0037.0 [facility] LaydfakNVYMFRVAX5110-26-04 18:43:00 Test Item Value Reference Range Interpretation Comments POC A pH (test code = POC A pH) 7.4 1 7.35-7.45 [facility] GshjekhFYMKDHCQP4886-73-02 18:43:0034.0[facility] HermannCHEMISTRY 2011-01-26 18:43:000.0[facility] WspzliiYEUWPHKOD8787-37-80 18:43:0096.0[facility] ZiohrafXTTGWCRLZ3724-83-76 18:43:0025.0[facility] GgsomozPTYBFBQEL8690-31-89 17:57:0096.0[facility] KajgpbhTWPXGNWMJ0751-00-53 17:57:003.6[facility] RSMYGDQFG3292-53-38 17:57:000.8[facility] ToouksiEHZXPLSIF9719-52-37 17:57:63527.0 [facility] PyesfvcOTILXZZOD1889-95-01 17:57:0037.0[facility]annCHEMISTRY 2011-01-26 17:57:0025.0[facility] EmawdzyRFCGKHCWP6852-35-87 17:57:0079.0[facility] SjeqxpySPXHIVLLI4054-26-85 17:57:0038.0[facility] LbtjbehOHCGPYWVC7434-42-13 17:57:00 Test Item Value Reference Range Interpretation Comments POC A pH (test code = POC A pH) 7.42 1 7.35-7.45 [facility] BorvorgZNBOZIEBH7346-69-69 17:57:000.0[facility]annCHEMISTRY 2011-01-26 17:57:001.22[facility] EgkxlyzWFBYUPOYX8024-94-73 17:57:00770.0[facility] ElpxehaMCUWRJQFE5611-65-73 17:57:0036.0[facility] SdlttofHSESLKNFP9301-03-89 17:01:0041.0[facility] BtfsilmQZPEOWVXA9570-97-95 17:01:49164.0[facility] GOYYYYZKS6589-13-90 17:01:001.05[facility] JqvqzstTYARYJZYS6907-13-21 17:01:003.6 [facility] TtwfgwfAXQCNUETE5843-42-16 17:01:000.8[facility] HermannCHEMISTRY 2011-01-26 17:01:39376.0[facility] RLTZRUB2975-10-89 14:00:00 Negative (01/26/2011 09:00:00) ??[facility] QwlaabrQSYCJBHGDH1029-21-39 05:15:00 Test Item Value Reference Range Interpretation Comments PTT (test code = PTT) 28.2 s 22.9-35.8 [facility] BtmjildSGXZRWKYTA2777-96-70 05:15:00 Test Item Value Reference Range Interpretation Comments INR (test code = INR) 1.24 1 0.85-1.17 [facility] PbozsmxHRMPRYMURE4321-87-35 05:15:00 Test Item Value Reference Range Interpretation Comments PT (test code = PT) 15.6 s 12.0-14.7 [facility] KpekoysMRSAYNESY7079-12-47 12:56:00 Test Item Value Reference Range Interpretation Comments CK MB Index (test code = CK MB Index) 0.4 1 <=2.5 [facility] DgvxulvFGZFRGYAY0735-80-91 12:56:001.1[facility]annCHEMISTRY 2011-01-25 12:56:84327.0[facility] HuvejksWOLOXHUZV3883-45-35 12:56:00<0.01 [facility] EqsoyzpRFPVFVKOV8824-50-05 12:56:91747.0[facility] HermannCHEMISTRY 2011-01-25 05:15:47066.0[facility] XdklufwLJTZWVCGU4433-28-06 05:15:00<0.01 [facility] DavughfHIKMXOYDD6285-57-68 05:15:00 Test Item Value Reference Range Interpretation Comments CK MB Index (test code = CK MB Index) 0.7 1 <=2.5 [facility] QyltvxfRSKZMBDKK1132-06-26 05:15:001.5[facility]annCHEMISTRY 2011-01-25 00:16:002.4[facility] VfbyzckQUVANINAFM0394-74-80 00:16:00Slight *ABN*(01/24/2011 19:16:00) [facility] KsdzhoeIELYTUFIXX5917-96-21 00:16:002.0 [facility] CenterIqdczsmPUHWLCYKPD1814-80-04 00:16:00Normal (01/24/2011 19:16:00) ?? [facility] TviiujpXOQWDLDFW3312-53-36 20:01:00<0.01[facility]annCHEMISTRY 2011-01-24 20:01:0060.0[facility] NqzosdeYTDWUWZJT3739-92-19 20:01:0034.0[facility] LumierannM[employer] [facility] [facility] PZHTDDT0564-17-07 08:15:00Negative (01/24/2011 03:15:00) ?? [facility] [employer]ier[employer] BANK ALXMZVM1493-37-51 08:15:00Product available (01/24/2011 03:15:00) ??[facility] NQIIPJA8025-49-06 08:15:00 Product available (01/24/2011 03:15:00) ??[facility] MxbnafoLKWHBTLFH3531-54-22 16:30:00 Test Item Value Reference Range Interpretation Comments CK MB Index (test code = CK MB Index) 1.2 1 <=2.5 N [facility] MkazamsACHHKTRCE3497-42-70 16:30:001.2[facility] HermannCHEMISTRY 2011-01-23 16:30:008.7[facility] AqathsfYYNKPOXBT9857-20-60 16:30:00<0.02 [facility] MwlbqxfALROTEPHAF4645-81-01 10:29:00??[facility]annURINALYSIS 2011-01-23 10:29:00Occasional /LPF *NA*(01/23/2011 05:29:00) ??[facility] BJGVGTSIVV8002-21-58 10:29:00<1.0[facility] XcsywmfYAZEQLVDAT1199-84-95 10:29:00Few /LPF *NA*(01/23/2011 05:29:00) [facility]annURINAL[facility] 2011-01-23 10:29:00<1.0[facility] KuncbilVVZALTPBUN2018-65-03 10:29:00Negative mg/dL (01/23/2011 05:29:00) ??[facility] XwdgftqECNZKVDPFQ6426-84-93 10:29:00 Negative (01/23/2011 05:29:00) ??[facility] XdcktqoHVGQGDMXDJ6475-98-50 10:29:00 Negative (01/23/2011 05:29:00) ??[facility] AqicudjDHAICBIJYJ3511-99-83 10:29:00 Negative *NA*(01/23/2011 05:29:00) ??[facility] YiwfqenSNPBQEQUHJ4257-81-23 10:29:71838 mg/dL *ABN*(01/23/2011 05:29:00) ??[facility]annURINAL[facility] 2011-01-23 10:29:00Negative (01/23/2011 05:29:00) ??[facility]annURINALYS[facility] 2011-01-23 10:29:00 Test Item Value Reference Range Interpretation Comments UA pH (test code = UA pH) 5.0 1 5.0-8.0 N [facility] CenterUiwagkzIFKWRQZZYB4782-94-33 10:29:00 Test Item Value Reference Range Interpretation Comments UA Spec Grav (test code = UA Spec 1.01 1 N Grav) [facility] CenterXmhecjtEVATKVRGBZ8210-82-49 10:29:00Clear (01/23/2011 05:29:00) ?? [facility] CenterOgaejuqPMRDNTYGSO6628-16-05 10:29:00Yellow *NA*(01/23/2011 05:29:00) ?? [facility] CenterBACTERIAL - HIADQOJC1370-53-67 10:00:00Negative 1(01/23/2011 05:00:00) ??[facility]
--- OUTSIDE RECORDS SUMMARY | 2020-03-16 10:46 | XMS REPORT | Summary of Care ---
:1945 Author Name Varun Mcclure Address [facility] Unavailable , Care Team Providers Name Role Phone NOELLE Still Unavailable Unavailable Varun Mcclure Unavailable Unavailable BRAD Still Unavailable Unavailable SARA DANG Unavailable Unavailable NOELLE DANG Unavailable Unavailable Unavailable [...] EVERY DAY Quantity: 30 Refills: 5 SHEKHAR SR M.D. Start : 08-Oct-2018 Active Sertraline HCl - 25 MG Oral Tablet TAKE 1 TABLET BY MOUTH EVERY DAY Quantity: 90 Refills: 1 NOELLE Still, SHEKHAR Start : 12-Nov-2018 Active Pyridostigmine [place] 60 MG Oral Tablet TAKE 1 TABLET BY MOUTH THREE TIMES A DAY Quantity: 270 Refills: 1 NOELLE Still, SHEKHAR Start : 23-Nov-2018 Active Allergies and Adverse [...] Observations Planned Goals not documented Interventions Provided Discussion/SummaryGuideline Used: Other: Missed call Jazmyne Sr Daughter Viktor called and she said she missed a call from you and she is wanting to talk about ameliaom who is in the Hospital. Daughter is worried it is her mom's MG that is causing her to loose the ability to walk and swallow. A call was placed and a message left to call Daughter and the daughters number was left. Recommended Disposition: Daughter called Action Taken: Patient informed/educated about nurse line Reason for Disposition: Daughter wants to speak to Physician about Mom's condition. Intended Caller Action: Other: family Conference Additional Information: Call placed to Physician and message left Instructions Name Dates Details Instructions not documented Encounters Appointment; SHEKHAR SR M.D. On: 21-Sep-2018 10: 30 Encounter Diagnosis: Problem not documented Appointment; SHEKHAR SR M.D. On: 14-Oct-2018 11: 30 Encounter Diagnosis: Problem not documented Appointment; SHEKHAR SR M.D. On: 11-Nov-2018 11: 00 Encounter Diagnosis: Problem not documented Appointment; SHEKHAR SR M.D. On: 25-Jan-2019 8:0 0 Encounter Diagnosis: Problem not documented Appointment; SHEKHAR SR M.D. On: 05-May-2019 11:3 0 Encounter Diagnosis: Problem not documented Appointment; SHEKHAR SR M.D. On: 29-Nov-2019 11: 00 Encounter Diagnosis: Problem not documented Appointment; SHEKHAR SR M.D. On: 05-Jan-2020 10:0 0 Encounter Diagnosis: Problem not documented
[2020-03-16 11:28] LABS: Anisocytosis 1+; Blood Morphology Comment NOTED (NOT SEEN); Platelet Estimate ADEQ; White Blood Cell Scan OK (OK)
--- NOTE | 2020-03-16 11:44 | RAD REPORT ---
EXAM DESCRIPTION: USExtrem Venous W Compress Bil03/16/2020 11:12 am CLINICAL HISTORY: Leg pain COMPARISON: none FINDINGS: The common femoral, superficial femoral, popliteal and posterior tibial veins bilaterally are compressible and demonstrate augmentation. Doppler demonstrates good flow. IMPRESSION: No evidence of deep venous thrombosis involving either lower extremity.
[2020-03-16] MEDS ORDERED: IBUPROFEN 200 MG TAB PO ONE (12:15)
[2020-03-16] MEDS ORDERED: VANCOMYCIN/NS 1 gm 1 GM/250 ML BAG IV ONE (12:15)
[2020-03-16] MEDS ORDERED: IBUPROFEN 400 MG TAB ONE (12:15)
--- NOTE | 2020-03-16 12:24 | EDPHYS ---
Physician Documentation [facility] Name: Franci Lange Age: 75 yrs Sex: Female : 1945 Arrival Date: 03/16/2020 Time: 09:26 Bed 7 Private MD: ED Physician Eulogio Yoder HPI: 03/16 19:35 This 75 yrs old Female presents to ER via EMS with complaints of Knee Pain. kdr 19:35 The patient c/o pain for the last few days of her left knee. She also has erythema of kdr the left lower calf. Onset: The symptoms/episode began/occurred gradually, 3 day(s) ago. Severity of symptoms: At their worst the symptoms were mild. The patient has not experienced similar symptoms in the past. The patient has not recently seen a physician. Historical: - Allergies: 09:32 Phenobarbital; bp 09:32 PENICILLINS; bp 09:32 Aspirin; bp 09:32 Ciprofloxacin; bp 09:32 cefepime; bp 09:32 CEPHALOSPORINS; bp 09:32 Cortizone-10; bp 09:32 Cortisone; bp 09:32 IVIG; bp 09:32 Tape; bp 09:32 Erythromycin; bp - Home Meds: 09:32 clonazepam 0.5 mg Oral tab 1 tab daily [Active]; pyridostigmine bromide 60 mg Oral tab bp 1 tab 3 times per day [Active]; Novolog 10 units Sub-Q soln before meals [Active]; Levemir 100 unit/mL subcutaneous soln 25 unit nightly [Active]; prednisone 20 mg Oral tab 1 tab once daily [Active]; potassium chloride 10 mEq Oral cpER 1 cap 3 times per day [Active]; amlodipine 10 mg tab 1 tab once daily [Active]; rosuvastatin 20 mg Oral tab 1 tab nightly [Active]; levothyroxine 88 mcg tab 1 tab once daily [Active]; ramipril 2.5 mg Oral cap 1 cap once daily [Active]; furosemide 20 mg Oral tab 1 tab nightly [Active]; sertraline 25 mg Oral tab 1 tab once daily [Active]; - PMHx: 09:32 ANKYLOSING SPONDYLITIS; Myasthenia Gravis; Hypertension; Anxiety; Diabetes - IDDM; CHF; bp Depression; High Cholesterol; Hypothyroidism; Myocardial infarction; Osteoporosis; - Immunization history:: Adult Immunizations Adult Immunizations up to date. - Social history:: Smoking status: Patient denies any tobacco usage or history of. Smoking status: . ROS: 19:35 Constitutional: Negative for fever, chills, and weight loss, Eyes: Negative for injury, kdr pain, redness, and discharge, Neck: Negative for injury, pain, and swelling, Cardiovascular: Negative for chest pain, palpitations, and edema, Respiratory: Negative for shortness of breath, cough, wheezing, and pleuritic chest pain, Abdomen/GI: Negative for abdominal pain, nausea, vomiting, diarrhea, and constipation, Back: Negative for injury and pain, : Negative for injury, bleeding, discharge, and swelling, Neuro: Negative for headache, weakness, numbness, tingling, and seizure activity. Psych: Negative for depression, anxiety, suicide ideation, homicidal ideation, and hallucinations, Allergy/Immunology: Negative for hives, rash, and allergies, Endocrine: Negative for neck swelling, polydipsia, polyuria, polyphagia, and marked weight changes, Hematologic/Lymphatic: Negative for swollen nodes, abnormal bleeding, and unusual bruising. 19:35 MS/extremity: Positive for erythema, pain, of the lateral aspect of left calf, left lateral ankle, left calf, left Achilles, medial aspect of left calf, left medial ankle, left rocha and anterior aspect of left ankle. Exam: 19:32 ECG was reviewed by the Attending Physician. kdr 19:35 Constitutional: This is a well developed, well nourished patient who is awake, alert, kdr and in no acute distress. Head/Face: Normocephalic, atraumatic. Eyes: Pupils equal round and reactive to light, extra-ocular motions intact. Lids and lashes normal. Conjunctiva and sclera are non-icteric and not injected. Cornea within normal limits. Periorbital areas with no swelling, redness, or edema. Neck: Trachea midline, no thyromegaly or masses palpated, and no cervical lymphadenopathy. Supple, full range of motion without nuchal rigidity, or vertebral point tenderness. No Meningismus. Chest/axilla: Normal chest wall appearance and motion. Nontender with no deformity. No lesions are appreciated. Cardiovascular: Regular rate and rhythm with a normal S1 and S2. No gallops, murmurs, or rubs. Normal PMI, no JVD. No pulse deficits. Respiratory: Lungs have equal breath sounds bilaterally, clear to auscultation and percussion. No rales, rhonchi or wheezes noted. No increased work of breathing, no retractions or nasal flaring. Abdomen/GI: Soft, non-tender, with normal bowel sounds. No distension or tympany. No guarding or rebound. No evidence of tenderness throughout. Back: No spinal tenderness. No costovertebral tenderness. Full range of motion. Neuro: Awake and alert, GCS 15, oriented to person, place, time, and situation. Cranial nerves II-XII grossly intact. Motor strength 5/5 in all extremities. Sensory grossly intact. Cerebellar exam normal. Normal gait. Psych: Awake, alert, with orientation to person, place and time. Behavior, mood, and affect are within normal limits. 19:35 Skin: cellulitis, that is mild, well demarcated, on the lateral aspect of left calf, left lateral ankle, left calf, left Achilles, medial aspect of left calf, left medial ankle, left rocha and anterior aspect of left ankle, induration. Vital Signs: 09:26 BP 151 / 100; Pulse 110; Resp 16; Temp 98.2; Pulse Ox 96% ; Weight 87.09 kg; Height 4 bp ft. 11 in. (149.86 cm); 09:31 Temp 101.2(O); tw2 10:05 BP 150 / 91; Pulse 111; Resp 18; Pulse Ox 97% ; bp 11:12 BP 117 / 47; Pulse 92; Resp 22; Temp 101.2; Pulse Ox 95% on R/A; tw2 12:13 BP 116 / 53; Pulse 84; Resp 22; Pulse Ox 98% on R/A; tw2 13:31 Temp 98.7(O); tw2 13:38 BP 142 / 45; Pulse 72; Resp 22; Temp 98.7(O); Pulse Ox 98% on R/A; tw2 09:26 Body Mass Index 38.78 (87.09 kg, 149.86 cm) bp 09:31 provider notified. tw2 MDM: 12:22 Patient medically screened. kdr 19:35 Data reviewed: vital signs, nurses notes, lab test result(s), radiologic studies. kdr Counseling: I had a detailed discussion with the patient and/or guardian regarding: the historical points, exam findings, and any diagnostic results supporting the discharge/admit diagnosis, lab results, radiology results, the need for further work-up and treatment in the hospital. 03/16 09:37 Order name: Amylase, Serum bp 03/16 09:37 Order name: Basic Metabolic Panel bp 03/16 09:37 Order name: Blood Culture Adult (2) bp 03/16 09:37 Order name: CBC with Diff; Complete Time: 11:54 bp 03/16 09:37 Order name: Ckmb; Complete Time: 11:54 bp 03/16 09:37 Order name: CPK; Complete Time: 11:54 bp 03/16 09:37 Order name: Lactate; Complete Time: 11:54 bp 03/16 09:37 Order name: LFT's; Complete Time: 11:54 bp 03/16 09:37 Order name: Lipase; Complete Time: 11:54 bp 03/16 09:37 Order name: Procalcitonin; Complete Time: 11:54 bp 03/16 09:37 Order name: Protime (+inr); Complete Time: 11:54 bp 03/16 09:37 Order name: Ptt, Activated; Complete Time: 11:54 bp 03/16 09:37 Order name: Troponin (emerg Dept Use Only); Complete Time: 11:54 bp 03/16 09:37 Order name: Urine Microscopic Only bp 03/16 09:37 Order name: Chest Single View XRAY; Complete Time: 11:54 bp 03/16 09:38 Order name: Amylase; Complete Time: 11:54 EDMS 03/16 09:38 Order name: Basic Metabolic Panel; Complete Time: 11:54 EDMS 03/16 09:42 Order name: Flu; Complete Time: 11:54 bp 03/16 10:06 Order name: Glucose, Ancillary Testing; Complete Time: 11:54 EDMS 03/16 10:19 Order name: US Extremity Venous W Compression Alexander; Complete Time: 11:54 kdr 03/16 11:09 Order name: SARS-COV-2 RT PCR; Complete Time: 12:25 EDMS 03/16 11:28 Order name: CBC Smear Scan; Complete Time: 11:54 EDMS 03/16 12:26 Order name: CT Abd/Pelvis - IV Contrast Only kdr 03/16 13:33 Order name: CT; Complete Time: 14:04 EDMS 03/16 09:37 Order name: Accucheck; Complete Time: 09:47 bp 03/16 09:37 Order name: Cardiac monitoring; Complete Time: 09:47 bp 03/16 09:37 Order name: EKG - Nurse/Tech; Complete Time: 10:59 bp 03/16 09:37 Order name: IV Saline Lock - Large Bore; Complete Time: 10:00 bp 03/16 09:37 Order name: Labs collected and sent; Complete Time: 10:00 bp 03/16 09:37 Order name: O2 Per Protocol; Complete Time: 09:47 bp 03/16 09:37 Order name: O2 Sat Monitoring; Complete Time: 09:47 bp EC:32 Rate is 110 beats/min. Rhythm is regular, Sinus tachycardia with No ectopy. QRS [place] is kdr Normal. Q waves are Present in leads II, III, aVF, V3, V6. Clinical impression: NSR w/ Non-specific ST/T Changes. Administered Medications: 09:45 Drug: Acetaminophen 1000 mg Route: PO; bp 11:29 Follow up: Response: No adverse reaction; Temperature is unchanged; Temperature is tw2 unchanged, md notified. 09:55 Drug: NS 0.9% 1000 ml Route: IV; Rate: 1 bolus; Site: right antecubital; bp 12:12 Follow up: Response: No adverse reaction; IV Status: Completed infusion; IV Intake: tw2 1000ml 12:12 Drug: Motrin 600 mg Route: PO; tw2 13:31 Follow up: Temp 98.7 Oral; Response: No adverse reaction; Temperature is decreased tw2 12:22 Drug: vancoMYCIN 1 grams Route: IVPB; Infused Over: 2 hrs; Site: right antecubital; tw2 14:01 Follow up: IV Status: Completed infusion; IV Intake: 1000ml bp 12:45 Drug: Potassium Chloride 10 mEq Route: PO; tw2 13:23 Follow up: Response: No adverse reaction ss 12:46 Drug: predniSONE 20 mg Route: PO; tw2 14:01 Follow up: Response: No adverse reaction bp 12:46 Drug: clonazePAM 0.5 mg Route: PO; tw2 13:23 Follow up: Response: No adverse reaction ss 12:46 Drug: amLODIPine 10 mg Route: PO; tw2 13:23 Follow up: Response: No adverse reaction ss 12:46 Drug: Furosemide 20 mg Route: PO; tw2 13:23 Follow up: Response: No adverse reaction ss 13:30 Drug: rosuvastatin Calcium 20 mg Route: PO; tw2 14:01 Follow up: Response: No adverse reaction bp 13:31 Drug: Pyridostigmine 60 mg Route: PO; tw2 14:01 Follow up: Response: No adverse reaction bp 13:31 Drug: Ramipril 2.5 mg Route: PO; tw2 14:01 Follow up: Response: No adverse reaction bp Disposition: 03/16/20 12:25 Hospitalization ordered by Pako Callahan for Observation. Preliminary diagnosis is Cellulitis of left lower limb. - Bed requested for Telemetry/MedSurg (observation). - Status is Observation. tw2 - Condition is Fair. - Problem is new. - Symptoms are unchanged. Signatures: Dispatcher [employer] EDMS Eulogio Yoder MD MD kdr Jorge Meléndez em1 Sintia Dias, RENAY RN ss Lorena Mensah RN RN tw2 Guerrero Blood, RN RN bp Corrections: (The following items were deleted from the chart) 11:09 09:43 CORONAVIRUS+MR.LAB.WISAMZ ordered. [facility] EDAZ 12:24 12:22 03/16/2020 12:22 Discharged to Home. Impression: Cellulitis of left lower limb. kdr Condition is Fair. Forms are Medication Reconciliation Form, Thank You Letter, Antibiotic Education, Prescription Opioid Use. Follow up: Private Physician; When: 2 - 3 days; Reason: If symptoms return, Further diagnostic work-up, Recheck today's complaints, Continuance of care, Re-evaluation by your physician. Problem is new. Symptoms have improved. kdr 13:29 12:25 Hospitalization Ordered by Pako Callahan MD for Observation. Preliminary em1 diagnosis is Cellulitis of left lower limb. Bed requested for Telemetry/MedSurg (observation). Status is Observation. Condition is Fair. Problem is new. Symptoms are unchanged. kdr 13:48 13:29 03/16/2020 12:25 Hospitalization Ordered by Pako Callahan MD for Observation. ss Preliminary diagnosis is Cellulitis of left lower limb. Bed requested for Telemetry/MedSurg (observation). Status is Observation. Condition is Fair. Problem is new. Symptoms are unchanged. em1 14:07 13:48 03/16/2020 12:25 Hospitalization Ordered by Pako Callahan MD for Observation. tw2 Preliminary diagnosis is Cellulitis of left lower limb. Bed requested for Telemetry/MedSurg (observation). Status is Observation. Condition is Fair. Problem is new. Symptoms are unchanged. ss
--- NOTE | 2020-03-16 12:24 | ER ---
Nurse's Notes [facility] Name: Franci Lange Age: 75 yrs Sex: Female : 1945 Arrival Date: 03/16/2020 Time: 09:26 Bed 7 Private MD: Diagnosis: Cellulitis of left lower limb Presentation: 03/16 09:26 Chief complaint: EMS states: LEFT KNEE PAIN. Coronavirus screen: At this time, the bp client does not indicate any symptoms associated with coronavirus-19. Ebola Screen: No symptoms or risks identified at this time. Initial Sepsis Screen: Does the patient meet any 2 criteria? HR > 90 bpm. No. Patient's initial sepsis screen is negative. Does the patient have a suspected source of infection? No. Patient's initial sepsis screen is negative. Risk Assessment: Do you want to hurt yourself or someone else? Patient reports no desire to harm self or others. Onset of symptoms is unknown. 09:26 Method Of Arrival: EMS: [facility] bp 09:26 Acuity: JAY 3 bp 09:32 Note CODE SEPSIS. bp Triage Assessment: 09:30 General: Appears in no apparent distress. uncomfortable, obese, Behavior is bp cooperative. Pain: Complains of pain in left leg and left knee. EENT: No deficits noted. Neuro: Level of Consciousness is awake, obeys commands, confused, Oriented to person. Cardiovascular: Rhythm is sinus tachycardia. Respiratory: Breath sounds are clear bilaterally. GI: No signs and/or symptoms were reported involving the gastrointestinal system. Abdomen is obese. : No signs and/or symptoms were reported regarding the genitourinary system. Derm: No deficits noted. Musculoskeletal: No deficits noted. Historical: - Allergies: 09:32 Phenobarbital; bp 09:32 PENICILLINS; bp 09:32 Aspirin; bp 09:32 Ciprofloxacin; bp 09:32 cefepime; bp 09:32 CEPHALOSPORINS; bp 09:32 Cortizone-10; bp 09:32 Cortisone; bp 09:32 IVIG; bp 09:32 Tape; bp 09:32 Erythromycin; bp - Home Meds: 09:32 clonazepam 0.5 mg Oral tab 1 tab daily [Active]; pyridostigmine bromide 60 mg Oral tab bp 1 tab 3 times per day [Active]; Novolog 10 units Sub-Q soln before meals [Active]; Levemir 100 unit/mL subcutaneous soln 25 unit nightly [Active]; prednisone 20 mg Oral tab 1 tab once daily [Active]; potassium chloride 10 mEq Oral cpER 1 cap 3 times per day [Active]; amlodipine 10 mg tab 1 tab once daily [Active]; rosuvastatin 20 mg Oral tab 1 tab nightly [Active]; levothyroxine 88 mcg tab 1 tab once daily [Active]; ramipril 2.5 mg Oral cap 1 cap once daily [Active]; furosemide 20 mg Oral tab 1 tab nightly [Active]; sertraline 25 mg Oral tab 1 tab once daily [Active]; - PMHx: 09:32 ANKYLOSING SPONDYLITIS; Myasthenia Gravis; Hypertension; Anxiety; Diabetes - IDDM; CHF; bp Depression; High Cholesterol; Hypothyroidism; Myocardial infarction; Osteoporosis; - Immunization history:: Adult Immunizations Adult Immunizations up to date. - Social history:: Smoking status: Patient denies any tobacco usage or history of. Smoking status: . Screenin:31 Abuse screen: Denies threats or abuse. Nutritional screening: No deficits noted. tw2 Tuberculosis screening: No symptoms or risk factors identified. Fall Risk Secondary diagnosis (15 points) impaired mobility. Assessment: 09:32 Reassessment: CODE SEPSIS called at this time, provider notified. tw2 09:32 General: Appears in no apparent distress. obese, well groomed, Behavior is calm, tw2 cooperative, appropriate for age. Pain: Complains of pain in left knee. Neuro: Level of Consciousness is awake, alert, obeys commands, Oriented to person, place, time, situation. Cardiovascular: Heart tones S1 S2 Patient's skin is warm and dry. Respiratory: Airway is patent Respiratory effort is even, unlabored, Respiratory pattern is regular, symmetrical, Breath sounds are diminished bilaterally. GI: No signs and/or symptoms were reported involving the gastrointestinal system. Abdomen is round non-distended, obese, Bowel sounds present X 4 quads. : No signs and/or symptoms were reported regarding the genitourinary system. EENT: No signs and/or symptoms were reported regarding the EENT system. Derm: Skin is fragile, is thin, Skin is dry. Musculoskeletal: Reports pain in left knee. 10:30 Reassessment: Patient appears in no apparent distress at this time. No changes from tw2 previously documented assessment. Patient and/or family updated on plan of care and expected duration. Pain level reassessed. 11:12 Reassessment: Patient appears in no apparent distress at this time. No changes from tw2 previously documented assessment. Patient and/or family updated on plan of care and expected duration. Pain level reassessed. 12:12 Reassessment: Patient appears in no apparent distress at this time. No changes from tw2 previously documented assessment. Patient and/or family updated on plan of care and expected duration. Pain level reassessed. provider at bedside discussing POC with pt and pts spouse at this time. 12:49 Reassessment: pt transport to CT at this time. tw2 13:39 Reassessment: Patient appears in no apparent distress at this time. No changes from tw2 previously documented assessment. Patient and/or family updated on plan of care and expected duration. Pain level reassessed. Vital Signs: 09:26 BP 151 / 100; Pulse 110; Resp 16; Temp 98.2; Pulse Ox 96% ; Weight 87.09 kg; Height 4 bp ft. 11 in. (149.86 cm); 09:31 Temp 101.2(O); tw2 10:05 BP 150 / 91; Pulse 111; Resp 18; Pulse Ox 97% ; bp 11:12 BP 117 / 47; Pulse 92; Resp 22; Temp 101.2; Pulse Ox 95% on R/A; tw2 12:13 BP 116 / 53; Pulse 84; Resp 22; Pulse Ox 98% on R/A; tw2 13:31 Temp 98.7(O); tw2 13:38 BP 142 / 45; Pulse 72; Resp 22; Temp 98.7(O); Pulse Ox 98% on R/A; tw2 09:26 Body Mass Index 38.78 (87.09 kg, 149.86 cm) bp 09:31 provider notified. tw2 ED Course: 09:26 Patient arrived in ED. bp 09:27 Triage completed. bp 09:30 Lorena Mensah, RENAY is Primary Nurse. tw2 09:30 Arm band placed on. tw2 09:31 Placed in gown. Side rails up X2. library monitor on. Pulse ox on. NIBP on. tw2 09:34 Eulogio Yoder MD is Attending Physician. kdr 09:49 Patient has correct armband on for positive identification. Bed in low position. Call mh5 light in reach. Pillow given. 09:49 Missed attempt(s): 20 gauge antecubital area. mh5 09:53 Inserted saline lock: 22 gauge in right antecubital area, using aseptic technique. bp Blood collected. 10:18 Chest Single View XRAY In Process Unspecified. EDMS 11:13 US Extremity Venous W Compression Alexander In Process Unspecified. EDMS 12:24 Pako Callahan MD is Hospitalizing Provider. kdr 13:40 Awaiting: unsuccessful attempt to give report at this time, was told RENAY Eastman is not tw2 available at this time and will call me back. 13:58 No provider procedures requiring assistance completed. Patient admitted, IV remains in bp place. Administered Medications: 09:45 Drug: Acetaminophen 1000 mg Route: PO; bp 11:29 Follow up: Response: No adverse reaction; Temperature is unchanged; Temperature is tw2 unchanged, md notified. 09:55 Drug: NS 0.9% 1000 ml Route: IV; Rate: 1 bolus; Site: right antecubital; bp 12:12 Follow up: Response: No adverse reaction; IV Status: Completed infusion; IV Intake: tw2 1000ml 12:12 Drug: Motrin 600 mg Route: PO; tw2 13:31 Follow up: Temp 98.7 Oral; Response: No adverse reaction; Temperature is decreased tw2 12:22 Drug: vancoMYCIN 1 grams Route: IVPB; Infused Over: 2 hrs; Site: right antecubital; tw2 14:01 Follow up: IV Status: Completed infusion; IV Intake: 1000ml bp 12:45 Drug: Potassium Chloride 10 mEq Route: PO; tw2 13:23 Follow up: Response: No adverse reaction ss 12:46 Drug: predniSONE 20 mg Route: PO; tw2 14:01 Follow up: Response: No adverse reaction bp 12:46 Drug: clonazePAM 0.5 mg Route: PO; tw2 13:23 Follow up: Response: No adverse reaction ss 12:46 Drug: amLODIPine 10 mg Route: PO; tw2 13:23 Follow up: Response: No adverse reaction ss 12:46 Drug: Furosemide 20 mg Route: PO; tw2 13:23 Follow up: Response: No adverse reaction ss 13:30 Drug: rosuvastatin Calcium 20 mg Route: PO; tw2 14:01 Follow up: Response: No adverse reaction bp 13:31 Drug: Pyridostigmine 60 mg Route: PO; tw2 14:01 Follow up: Response: No adverse reaction bp 13:31 Drug: Ramipril 2.5 mg Route: PO; tw2 14:01 Follow up: Response: No adverse reaction bp Intake: 12:12 IV: 1000ml; Total: 1000ml. tw2 14:01 IV: 1000ml; Total: 2000ml. bp Outcome: 12:22 Discharge ordered by . kdr 12:25 Decision to Hospitalize by Provider. kdr 13:57 Admitted to Med/surg accompanied by tech, via stretcher, room 201, with chart, Report bp called to ALLISON NIÑO 13:57 Condition: stable 13:57 Instructed on the need for admit. 14:07 Patient left the ED. tw Signatures: Dispatcher [employer] EDMS Eulogio Yoder MD MD kdr Smirch, Shelby, RN RN ss Wise, Tara, RN RN [facility] Alyx Meléndez [facility] Guerrero Blood, RENAY RN bp
[2020-03-16] MEDS ORDERED: FUROSEMIDE 20 MG TABLET ONE (12:52)
[2020-03-16] MEDS ORDERED: AMLODIPINE 10 MG TAB ONE (12:52)
[2020-03-16] MEDS ORDERED: predniSONE 20 MG TAB ONE (12:53)
[2020-03-16] MEDS ORDERED: POTASSIUM CL SA 10 MEQ TAB PO ONE (12:53)
[2020-03-16] MEDS ORDERED: clonazePAM 0.5 MG TAB ONE (12:53)
--- NOTE | 2020-03-16 12:59 | P.HP ---
Certification for Inpatient Patient admitted to: Observation With expected LOS: <2 Midnights Practitioner: I am a practitioner with admitting privileges, knowledge of patient current condition, hospital course, and medical plan of care. Services: Services provided to patient in accordance with Admission requirements found in Title 42 Section 412.3 of the Code of Federal Regulations Patient History Date of Service: 03/16/20 Reason for admission: LLE cellulitis History of Present Illness: Patient has dementia, not a great historian. HPI obtained from was at bedside. 75yo F, PMH: Myasthenia gravis, DM 2, HTN, ankylosing spondylitis, dementia, Chronic systolic CHF, COPD, HTN who is stents to the ED from her assisted living facility ([facility]), due to acute altered mental status/more lethargy. reports she was in her usual state of health yesterday and was not complaining of anything. Today she was noted to be more confused/lethargic and staff reported new low redness of her left lower leg. Of note, patient was recently discharged from [facility] approximately 2 weeks ago she underwent treatment for acute myasthenia gravis/crises with p lasmapheresis. In the ED she was noted to be in mildly hypertensive, tachycardic to 110, afebrile, SpO2: 96% on room air. Labwork notable for leukocytosis 14.9, elevated LFTs and alkaline phosphatases, amylase, lipase. Lactic acid: 1.6. CXR: No acute abnormalities. CT abdomen/pelvis: Small bilateral pleural effusions, mild to moderate intrahepatic biliary tree dilatation status post cholecystectomy. Moderate stool retained throughout the colon. Cultures were obtained in the ED. Patient reported no symptoms/complaints. Allergies aspirin Allergy (Verified 04/14/19 06:10) Shortness of breath ciprofloxacin [From Cipro] Allergy (Verified 04/14/19 06:10) Anaphylaxis cortisone Allergy (Verified 04/14/19 06:10) Hives/Rash Penicillins Allergy (Verified 04/14/19 06:10) Hives/Rash phenobarbital Allergy (Verified 04/14/19 06:10) Itching/Hives/Rash Home Medications: Amlodipine [Norvasc*] 10 mg PO DAILY 04/14/19 Ergocalciferol (Vitamin D2) [Vitamin D 50,000 Unit Cap] 50,000 unit PO SEECOM 04/14/19 Furosemide [Lasix*] 20 mg PO DAILY 04/14/19 Insulin Aspart [Novolog Flexpen] 10 unit SQ TIDWM 04/14/19 Insulin Detemir [Levemir] 25 units SQ BEDTIME 04/14/19 Levothyroxine [Synthroid*] 88 mcg PO [id number] 04/14/19 Melatonin [Melatonin*] 6 mg PO BEDTIME PRN 04/14/19 Potassium Chloride [Micro-K] 10 meq PO BID 04/14/19 Pyridostigmine [place] [Mestinon*] 1 tab PO Q8H 04/14/19 Rosuvastatin Calcium [Crestor] 20 mg PO DAILY 04/14/19 Sertraline HCl 25 mg PO BEDTIME 04/14/19 predniSONE [Prednisone*] 20 mg PO DAILY 04/14/19 clonazePAM [Klonopin*] 0.5 mg PO BID #60 tab 02/10/20 Ramipril 2.5 mg PO DAILY 03/16/20 - Past Medical/Surgical History Diabetic: Yes -: Kidney failure -: Benign neoplasm of cerebral meninges -: HTN -: COPD -: Chronic systolic (congestive)heart failure -: Hypocalcemia -: Pneumonia due to staph -: Severe sepsis w/ septic shock -: resp failure -: spinal stenosis -: myasthenia gravis -: dementia -: Brain surgery x 2 -: section x 3 -: korey -: neck surgery -: carpal tunnel surgery - Family History Mother -: Heart disease Notes: 93y/o , still living Father -: Heart disease Notes: - Social History Smoking Status: Never smoker Alcohol use: No CD- Drugs: No Caffeine use: No Place of Residence: Correction ([facility]) Review of Systems 10-point ROS is otherwise unremarkable (Patient not very reliable) Physical Examination - Physical Exam General: Alert, Oriented x1, Confused HEENT: Mucous membr. moist/pink, Sclerae nonicteric Neck: Supple Respiratory: Diminished (At bases bilaterally, mild crackles) Cardiovascular: Regular rate/rhythm, Edema (1-2+ bilateral to knees) Gastrointestinal: Soft and benign, No tenderness Musculoskeletal: No tenderness Integumentary: Erythema (From left ankle to mid lower leg anteriorly) Neurological: Dementia - Studies Laboratory Data (last 24 hrs) 03/16/20 09:50: PT 11.7, INR 0.99, APTT 29.2 03/16/20 09:50: WBC 14.9 H, Hgb 10.2 L, Hct 32.4 L, Plt Count 213 03/16/20 09:50: Sodium 142, Potassium 3.6, BUN 9, Creatinine 0.71, Glucose 93, Total Bilirubin 1.4 H, AST 261 H, ALT 211 H, Alkaline Phosphatase 399 H, Amylase 163 H, Lipase 443 H Microbiology Data (last 24 hrs): 03/16/20 09:55 Nasopharnyx Influenza Type A Antigen Screen - Final 03/16/20 09:55 Nasopharnyx Influenza Type B Antigen Screen - Final Assessment and Plan - Advance Directives Does patient have a Living Will: No Does patient have a Durable POA for Healthcare: No Physician Review Additional Text: AMS, lethargy LLE cellulitis elevated LFTs Chronic systolic CHF COPD Essential hypertension DM2 Myasthenia gravis Dementia, multi infarct vascular dementia AMS,lethargy LLE cellulitis -new onset LLE redness since yesterday, reported by / staff at [facility] -patient allergic to ciprofloxacin, penicillins,. Cephalosporins, continue vancomycin -cultures obtained in the ED Elevated LFTs Patient has had intermittent elevated LFTs in the past Unclear specific etiology at this time, status post cholecystectomy Possiblly due to volume overload Chronic systolic CHF -patient with some signs of volume overload. Will continue home Lasix, may need additional COPD -no wheeze on exam, stable Essential hypertension -continue home meds as appropriate DM2 -Accu-Cheks, low sliding scale Myasthenia gravis -stable, does not appear in acute crises, continue home meds Dementia -seems to be a baseline Dispo: anticipate dc in 24-48 hrs pending resolution of AMS/improvement of cellulitis Time Spent Managing Pts Care (In Minutes): 55
[2020-03-16] MEDS ORDERED: ROSUVASTATIN 10 MG TAB PO ONE (13:00)
[2020-03-16] MEDS ORDERED: PYRIDOSTIGMINE 60 MG TABLET PO ONE (13:00)
--- NOTE | 2020-03-16 13:32 | RAD REPORT ---
EXAM DESCRIPTION: CTAbdomen Pelvis W Contrast - 03/16/2020 1:24 pm CLINICAL HISTORY: Abdominal pain. ABD PAIN COMPARISON: No comparisons TECHNIQUE: Biphasic CT imaging of the abdomen and pelvis was performed with 100 ml non-ionic IV cont rast. All CT scans are performed using dose optimization technique as appropriate and may include automated exposure control or mA/KV adjustment according to patient size. FINDINGS: Small bilateral pleural effusion with linear atelectasis both bases. Mild to moderate biliary dilatation in the liver seen. Cholecystectomy clips are present. The spleen, pancreas, adrenal glands and kidneys acute process. No bowel obstruction, free air, free fluid or abscess. Small fat containing umbilical hernia. Cathete r tubing extends into the pelvis. Significant fecal retention throughout the colon. The appendix is n ot identified as a discrete structure, however, no secondary findings of appendicitis are identified. No evidence of significant lymphadenopathy. Moderate lumbosacral degenerative changes. IMPRESSION: Small bilateral pleural effusions. [id number] intrahepatic biliary tree dilatation status post cholecystectomy. Moderate stool retained throughout the colon.
[2020-03-16 14:55] VITALS: BMI 37.4
[2020-03-16] MEDS ORDERED: NA CHLORIDE 0.9% IV SCH (16:00)
[2020-03-16] MEDS ORDERED: VANCOMYCIN IV SCH (16:00)
[2020-03-16] MEDS: INSULIN -REGULAR HUMAN 50 UNIT/0.5 ML ML SQ SCH ×2 (16:30→20:14)
[2020-03-16 17:30] LABS: Urine Bacteria NONE SEEN /HPF (<20); Urine RBC <5 /HPF (NONE SEEN)
[2020-03-16 17:31] LABS: Urine Culture Reflex Order NOT NEEDED; Urine Mucus 1+ /HPF (NONE SEEN)
[2020-03-16] MEDS ORDERED: MELATONIN 3 MG TABLET PO PRN (18:31)
[2020-03-16] MEDS ORDERED: D50W 25 GM/50 ML SYRINGE/VIAL IV PRN (18:33)
[2020-03-16] MEDS ORDERED: GLUCAGON 1 MG/VIAL IM PRN (18:33)
[2020-03-16] MEDS: PYRIDOSTIGMINE 60 MG TABLET PO SCH (18:58)
[2020-03-16] MEDS ORDERED: DRISDOL (VITAMIN D=ERGOCALCIFEROL) 50000 UNIT CAP PO SCH (19:00)
[2020-03-16] MEDS: clonazePAM 0.5 MG TAB PO SCH (20:14)
[2020-03-16] MEDS ORDERED: SERTRALINE HCL 50 MG TAB PO SCH (21:00)
[2020-03-16] MEDS ORDERED: INSULIN GLARGINE 100 UNITS/ML SQ SCH (21:00)
[2020-03-16] MEDS ORDERED: PNEUMOCOCCAL VACCINE 0.5 ML IMVAC ONE (21:53)
[2020-03-16 23:29] VITALS: O2SAT 93
[2020-03-17] MEDS: PYRIDOSTIGMINE 60 MG TABLET PO SCH ×2 (01:48→09:07)
[2020-03-17] MEDS ORDERED: LEVOTHYROXINE SOD 0.088 MG TAB PO SCH (06:00)
[2020-03-17 06:27] LABS: Absolute Lymphocytes (CBC) 1.3 K/uL (0.7-4.9); Basophils % 0.8 % (0-1.3); Hematocrit 31.7 % (36.0-45.0); Lymphocytes % 13.7 % (15.3-44.8); MPV 8.6 fL (7.6-11.3); RBC Red Blood Cell Count 4.15 M/uL (3.86-4.86)
[2020-03-17 06:28] LABS: Protime INR 0.99
[2020-03-17 06:42] LABS: ALT/SGPT 151 U/L (12-78); AST/SGOT 104 U/L (15-37); Albumin 2.4 g/dL (3.4-5.0); Alkaline Phosphatase 357 U/L (45-117); BUN Blood Urea Nitrogen 9 mg/dL (7-18); Bicarbonate 29 mmol/L (21-32); Bilirubin Total 0.5 mg/dL (0.2-1.0); Glucose Level 136 mg/dL (74-106); Lipase 359 U/L (73-393); Magnesium 2.2 mg/dL (1.8-2.4); Potassium 3.7 mmol/L (3.5-5.1); Protein, Total 5.7 g/dL (6.4-8.2); Sodium Level 142 mmol/L (136-145)
[2020-03-17] MEDS: INSULIN -REGULAR HUMAN 50 UNIT/0.5 ML ML SQ SCH ×2 (07:30→11:41)
[2020-03-17] MEDS ORDERED: FUROSEMIDE 20 MG TABLET PO SCH (09:00)
[2020-03-17] MEDS ORDERED: predniSONE 20 MG TAB PO SCH (09:00)
[2020-03-17] MEDS ORDERED: AMLODIPINE 10 MG TAB PO SCH (09:00)
[2020-03-17] MEDS ORDERED: ROSUVASTATIN 10 MG TAB PO SCH (09:00)
[2020-03-17] MEDS: ENOXAPARIN 40 MG/0.4 ML SQ SCH ×2 (09:00→09:07)
[2020-03-17] MEDS: clonazePAM 0.5 MG TAB PO SCH (09:08)
[2020-03-17] MEDS ORDERED: DOXYCYCLINE 100 MG CAP PO SCH (10:00)
--- NOTE | 2020-03-17 11:30 | P.DS ---
Admission Date: 03/16/20 Discharge Date: 03/17/20 Disposition: ROUTINE DISCHARGE Discharge Condition: GOOD Reason for Admission: LLE cellulitis Procedures: CXR (03/16): No acute abnormalities displayed. Heart is mildly enlarged. Bilateral venous Doppler (03/16): No evidence of DVT involving either lower extremity CT abdomen/pelvis (03/16): Small bilateral pleural effusions. Mild-moderate intrahepatic biliary tree dilatation status post cholecystectomy. Moderate stool retained throughout the colon. Problem list AMS, lethargy LLE cellulitis elevated LFTs Chronic systolic CHF COPD Essential hypertension DM2 Myasthenia gravis Dementia, multi infarct vascular dementia Brief History of Present Illness: Patient has dementia, not a great historian. HPI obtained from was at bedside. 75yo F, PMH: Myasthenia gravis, DM 2, HTN, ankylosing spondylitis, dementia, Chronic systolic CHF, COPD, HTN who is stents to the ED from her assisted living facility ([facility]), due to acute altered mental status/more lethargy. reports she was in her usual state of health yesterday and was not complaining of anything. Today she was noted to be more confused/lethargic and staff reported new low redness of her left lower leg. Of note, patient was recently discharged from [facility] approximately 2 weeks ago she underwent treatment for acute myasthenia gravis/crises with plasmapheresis. In the ED she was noted to be in mildly hypertensive, tachycardic to 110, afebrile, SpO2: 96% on room air. Labwork notable for leukocytosis 14.9, ish vated LFTs and alkaline phosphatases, amylase, lipase. Lactic acid: 1.6. CXR: No acute abnormalities. Hospital Course: Patient was admitted for further management of her cellulitis. She was continued on IV vancomycin, and significantly improved overnight. Leukocytosis resolved, elevated LFTs improved, and erythema improved as well. Patient was feeling better and patient's reported she was much closer to her baseline. She was discharged back to [facility] on Doxycycline. Vital Signs/Physical Exam: Temp Pulse Resp BP Pulse Ox 97.5 F 81 18 128/60 98 03/17/20 08:00 03/17/20 09:08 03/17/20 08:00 03/17/20 09:08 03/17/20 08:00 General: Alert, In no apparent distress, Oriented x3 HEENT: Mucous membr. moist/pink, Sclerae nonicteric Neck: No LAD Respiratory: Clear to auscultation bilaterally, Normal air movement Cardiovascular: Regular rate/rhythm Gastrointestinal: Soft and benign, Non-distended, No tenderness Integumentary: Erythema (mild from ankle to mid-tibia), [place] Neurological: Normal speech, Normal affect Laboratory Data at Discharge: WBC 9.6 K/uL (4.3-10.9) D 03/17/20 06:15 Hgb 10.0 g/dL (12.0-15.0) L 03/17/20 06:15 Hct 31.7 % (36.0-45.0) L 03/17/20 06:15 Plt Count 179 K/uL (152-406) 03/17/20 06:15 PT 11.7 SECONDS (9.5-12.5) 03/17/20 06:15 INR 0.99 03/17/20 06:15 APTT 29.2 SECONDS (24.3-36.9) 03/16/20 09:50 Sodium 142 mmol/L (136-145) 03/17/20 06:15 Potassium 3.7 mmol/L (3.5-5.1) 03/17/20 06:15 BUN 9 mg/dL (7-18) 03/17/20 06:15 Creatinine 0.61 mg/dL (0.55-1.3) 03/17/20 06:15 Glucose 136 mg/dL (74-106) H 03/17/20 06:15 Magnesium 2.2 mg/dL (1.8-2.4) 03/17/20 06:15 Total Bilirubin 0.5 mg/dL (0.2-1.0) 03/17/20 06:15 AST 104 U/L (15-37) H D 03/17/20 06:15 ALT 151 U/L (12-78) H 03/17/20 06:15 Alkaline Phosphatase 357 U/L (45-117) H 03/17/20 06:15 Amylase 163 U/L (25-115) H 03/16/20 09:50 Lipase 359 U/L (73-393) 03/17/20 06:15 Home Medications: Amlodipine [Norvasc*] 10 mg PO DAILY 04/14/19 Ergocalciferol (Vitamin D2) [Vitamin D 50,000 Unit Cap] 50,000 unit PO SEECOM 04/14/19 Furosemide [Lasix*] 20 mg PO DAILY 04/14/19 Insulin Aspart [Novolog Flexpen] 10 unit SQ TIDWM 04/14/19 Insulin Detemir [Levemir] 25 units SQ BEDTIME 04/14/19 Levothyroxine [Synthroid*] 88 mcg PO [id number] 04/14/19 Melatonin [Melatonin*] 6 mg PO BEDTIME PRN 04/14/19 Potassium Chloride [Micro-K] 10 meq PO BID 04/14/19 Pyridostigmine [place] [Mestinon*] 1 tab PO Q8H 04/14/19 Rosuvastatin Calcium [Crestor] 20 mg PO DAILY 04/14/19 Sertraline HCl 25 mg PO BEDTIME 04/14/19 predniSONE [Prednisone*] 20 mg PO DAILY 04/14/19 clonazePAM [Klonopin*] 0.5 mg PO BID #60 tab 02/10/20 Ramipril 2.5 mg PO DAILY 03/16/20 Doxycycline Hyclate 100 mg PO BID 10 Days #20 tablet 03/17/20 New Medications: Doxycycline Hyclate 100 mg PO BID 10 Days #20 tablet Patient Discharge Instructions: follow up with PCP within 1 week - recheck LFTs, were slightly elevated, but improving. New medications. Doxycycline 100 mg twice a day for 10 days Diet: Continue diabetic diet, mechanical soft/nectar thick liquids Activity: Fall precautions Time spent managing pt's care (in minutes): 35
[2020-03-17 13:46] VITALS: BP 145/63; TEMP 97.7
[2020-03-17] MEDS ORDERED: VANCOMYCIN 1.5 GM in NA CHLORIDE 0.9% 500 ML IVPB SCH (16:00)
--- NOTE | 2020-03-20 16:13 | EKG ---
Test Date: 2020-03-16 Test Time: 10:06:01 Mat Puncher: BP MEASUREMENT RESULTS: Intervals: Rate: 110 NM: 158 QRSD: 78 QT: 314 QTc: 424 [place]: P: 48 NM: 158 QRS: 25 T: 79 INTERPRETIVE STATEMENTS: Sinus tachycardia Possible Inferior infarct, age undetermined Anterior infarct, age undetermined Abnormal ECG Compared to ECG 02/11/2020 12:28:18 Sinus rhythm no longer present Ventricular premature complex(es) no longer present Myocardial infarct finding still present Electronically Signed On 03-20-20 16:08:40 CDT by Jeet Valles
== END 2020-03-17 13:18 | disposition home or self-care (01) ==
LOC: ER 09:24 → ERHOLD 12:56 → 2ND 13:48
PROVIDERS: ADMIT Hospitalist; ATTEND Hospitalist
DX: L03.116 Cellulitis of left lower limb (principal); R41.82 Altered mental status, unspecified; I11.0 Hypertensive heart disease with heart failure; I50.22 Chronic systolic (congestive) heart failure; Z20.828 Contact with and (suspected) exposure to other viral communicable diseases; R74.8 Abnormal levels of other serum enzymes; R53.83 Other fatigue; J44.9 Chronic obstructive pulmonary disease, unspecified; E11.9 Type 2 diabetes mellitus without complications; F01.50 Vascular dementia, unspecified severity, without behavioral disturbance, psychotic disturbance, mood disturbance, and anxiety; G70.00 Myasthenia gravis without (acute) exacerbation; M45.9 Ankylosing spondylitis of unspecified sites in spine; Z79.4 Long term (current) use of insulin; Z79.52 Long term (current) use of systemic steroids; R94.31 Abnormal electrocardiogram [ECG] [EKG]; R00.0 Tachycardia, unspecified
CPT/HCPCS: 96365; 96361; 87040 ×2; 85025 ×2; 80048; 36415; 82140; 82150; 83735; 82550; 85610 ×2; 82947 ×6; 80076; 83605; 85730; 81015; 84484; 82553; 83690 ×2; 80053; 84145; 87804 ×2; 74177; 71045; 93970; 94760 ×3; 99285; 96366; U0003; Q9967; J3370; J7030; G0378 ×3; 93005; J1650; J1815; J7040; J7512

== ENCOUNTER 2020-04-02 03:28 | Emergency (ER) | payer OTHER ==
--- OUTSIDE RECORDS SUMMARY | 2020-04-02 03:31 | XMS REPORT | Clinical Summary ---
:1945 Author Organization [facility] Address [address] [place] [address] Care Team Providers Name Role Phone Ayush [...] PaezShirley rollins MD Agrawal, Neeraj, MD after 04/02/2019 Social History Tobacco Use Types Packs/Day Years [...] 65+ YRS (1 of 1 - 01/10/2012 [id number]) MEDICARE ANNUAL WELLNESS (YEAR 2 or [...] are i n the results section. SARS-COV2/RT-PCR ([facility] Routine 02/12/2020 3:39 R esults for this & REF LABS) AM CDT procedure are i n the results section. after 04/02/2019 Results EKG-SCANNED (02/22/2020 5:13 PM CDT) Narrative Performed At This result has an attachment that is no t available. POC-Glucose meter (02/15/2020 1:09 PM CDT)Only the most recent of13 results within the time period is included. POC-Glucose Meter 101Comment: : 70 - 110 mg/dL [facility] TESTED AT [address], [address]: Hopper Feeder/Technic radha ID = [id number] for LENNOX OSBORN Specimen Blood Performing Organization Address City/State/Zipcode Phone Number [address] [address] CENTER CBC with platelet count + automated diff (02/15/2020 4:38 AM CDT)Only the most recent of3 resultswithin the time period is included. Pathologist Sig nature WBC 19.1 (H) 3.5 - 10.5 [facility] K/L [facility] RBC 4.85 3.93 - 5.22 [facility] M/FORMERLY [facility] Hemoglobin 11.8 11.2 - 15.7 [facility] GM/DL [facility] Hematocrit 40.3 34.1 - 44.9 % [facility] MCV 83.1 79.4 - 94.8 fL [facility] MCH 24.3 (L) 25.6 - 32.2 pg [facility] MCHC 29.3 (L) 32.2 - 35.5 [facility] GM/DL [facility] RDW 16.7 (H) 11.7 - 14.4 % [facility] Platelets 154 150 - 450 K/CU [facility] MM [facility] MPV 12.4 (H) 9.4 - 12.3 fL [facility] nRBC 0 0 - 0 /100 WBC [facility] % Neutros 82 % [facility] % Lymphs 12 % [facility] % Monos 5 % [facility] % Eos 0 % [facility] % Baso 0 % [facility] # Neutros 15.53 (H) 1.56 - 6.13 [facility] # Lymphs 2.34 1.18 - 3.74 [facility] # Monos 0.92 (H) 0.24 - 0.36 [facility] # Eos 0.06 0.04 - 0.36 [facility] # Baso 0.03 0.01 - 0.08 [facility] Immature 1 0 - 1 % [facility] Granulocytes-Relativ [facility] e CENTER Specimen Blood Performing Organization Address City/State/Zipcode Phone Number [facility] [address] [place] [address] CENTER Urinalysis w/Microscopic + Reflex to Culture (02/14/2020 3:04 PM CDT) Color, UA Yellow [facility] Clarity, UA Hazy [facility] Specific [place], 1.028 1.001 - 1.035 [facility] pH, UA 6.0 5.0 - 8.0 [facility] Protein, UA 30 mg/dL (A) Negative [facility] Glucose, UA Negative Negative [facility] Ketones, UA Negative Negative [facility] Bilirubin, UA Negative Negative [facility] Blood, UA Negative Negative [facility] Nitrite, UA Negative Negative [facility] Leukocytes, UA Moderate (A) Negative [facility] Urobilinogen, UA 0.2 0.2 - 1.0 mg/dL [facility] RBC, UA 2 /HPF [facility] WBC, UA 28 /HPF [facility] Mucus Occasional [facility] Squam Epithel, UA 1 /HPF [facility] Hyaline Casts, UA 1 /LPF [facility] Ca Oxalate Jagruti, Occasional [facility] Specimen Source [facility] Specimen Urine Narrative Performed At Hopper Feeder ID - [auto] [facility] Hopper Feeder ID - radha Performing Organization Address City/State/Zipcode Phone Number [facility] [address] [place] [address] [place] Urine culture (02/14/2020 3:04 PM CDT) Pathologist Sig nature Result See comment [facility] Specimen Urine Narrative Performed At >100,000 col/mL enteric organisms of >3 [facility] types. No further workup performed. Multiple organisms suggestive of colonization or contamination. Repeat collection recommended. Performing Organization Address City/State/Zipcode Phone Number [facility] [address] [place] [address] CENTER [place] esoph swallow funct [...] Report Verified Date/Time: 02/14/2020 12:20:00 Reading Location: [address] Reading Room Procedure Note Interface, External [...] Verified Date/Time: 02/14/2020 1 2:20:00 Reading Location: [address] Reading Room Performing Organization Address City/State/Zipcode [...] Report Verified Date/Time: 02/13/2020 12:51:24 Reading Location: [facility] y Reading Room Procedure Note Interface, External [...] Megan Greenwood MD Report Verified Date/Time: 02/13/2020 1 2:51:24 [facility] Performing Organization Address City/State/Zipcode Phone Number [employer] XR chest 1 view portable / bedside [...] Report Verified Date/Time: 02/12/2020 14:59:34 Reading Location: [facility] C013Y CT Body R eading Room Procedure [...] Verified Date/Time: 02/12/2020 1 4:59:34 Reading Location: [facility] C013Y CT Body R eading Room Performing Organization Address City/State/Zipcode Phone Number [facility] TSH/Free T4 If Indicated (02/12/2020 10:54 AM CDT) Pathologist Sig formerly [facility] TSH 1.158 0.350 - 4.940 uIU/mL [facility] Specimen Blood Performing Organization Address City/[facility] Phone Number [facility] [address] [facility] [place] [address] Lactate dehydrogenase (LDH) (02/12/2020 10:54 AM CDT) Pathologist [facility] nature LDH 401 (H)Comment: 125 - 220 U/L [facility] Specimen slightly - [place] hemolyzed Specimen Blood Performing Organization Address City/[facility] Phone Number [facility] [address] [place] [address] Vitamin B12 (02/12/2020 10:54 AM CDT) Pathologist Sig nature Vitamin B12 486 213 - 816 pg/mL [facility] Specimen Blood Performing Organization Address [facility] Phone Number [facility] [address] [place] [address] Creatine Kinase (CK) (02/12/2020 10:54 AM CDT) Pathologist Sig nature Total CK 47 29 - 200 U/L [facility] Specimen Blood Performing Organization Address [facility] Phone Number [facility] [address] [place] [address] Comprehensive metabolic panel (02/12/2020 10:54 AM CDT) Protein, Total 4.8 (L)Comment: 6.0 - 8.3 [facility] Specimen slightly gm/dL [facility] hem[facility] Albumin 2.9 (L)Comment: 3.5 - 5.0 [facility] Specimen slightly g/dL [facility] hem[facility] Alkaline 174 (H) 40 - 150 U/L [facility] Phosphatase [facility] Total Bilirubin 0.3Comment: 0.2 - 1.2 [facility] Specimen slightly mg/dL [facility] Sodium 140 136 - 145 [facility] meq/L [facility] Potassium 3.6Comment: 3.5 - 5.1 [facility] Specimen slightly meq/L [facility] Chloride 105 98 - 107 [facility] meq/L [facility] CO2 28 22 - 29 meq/L [facility] BUN 11 7 - 21 mg/dL [facility] Creatinine 0.48 (L)Comment: 0.57 - 1.25 [facility] Specimen slightly mg/dL [facility] hemolyzed Glucose 95 70 - 105 [facility] mg/dL [facility] Calcium 8.2 (L) 8.4 - 10.2 [facility] mg/dL [facility] AST 32Comment: 5 - 34 U/L [facility] Specimen slightly [facility] hemolyzed ALT 31Comment: 6 - 55 U/L [facility] Specimen slightly [facility] hem[facility] EGFR 127Comment: mL/min/1.73 [facility] ESTIMATED GFR IS sq m [facility] NOT ACCURATE CREATININE CLEARANCE IN PREDICTING GLOMERULAR FILTRATION RATE. ESTIMATED GFR IS NOT APPLICABLE FOR DIALYSIS PATIENTS. Specimen Blood Performing Organization Address City/State/Zipcode Phone Number [facility] [address] [facility] [place] [address] SARS-CoV2/RT-PCR (Asymptomatic ONLY) (02/12/2020 3:39 AM CDT) SARS-COV2/RT-PCR Negative Not Detected, [facility] Negative, See [facility] external report CENTER for linked test SARS-COV-2 [facility] PERFORMING LAB [facility] Specimen Other - Nasopharyngeal wall structure (b josseline structure) Narrative Performed At Negative result for this test determines that [facility] SARS-CoV-2 RNA was not present in the [...] the Act. Fact Sheet for Healthcare Providers: https://www.[employer]/sites/default/files/pro duct/documents/Fact_Sheet_HC_Providers_Lyra_SA RS-CoV-2.pdf Fact Sheet for Healthcare Patients: https://www.[employer]/sites/default/files/pro duct/documents/Fact_Sheet_Patients_Lyra_SARS-C oV-2.pdf Performing Laboratory: [address] [place] [address] Performing Organization Address City/State/Zipcode Phone Number [address] [phone] CENTER after 04/02/2019 Insurance Payer Benefit Plan / Subscriber ID Effective Dates Phone Addre ss Type Group AETNA - AETNA MEDICARE [id number] 2013-Presen [phone] MEDICARE MGD HMO POS PPO t 2 [id number] [place] [address] CDC REVIEW CDC REVIEW [id number] 2020-[place] [address] Advance Directives For more information, please contact: [phone] Code Status Date Activated Date Inactivated Comments Full Code 02/11/2020 10:24 PM 02/15/2020 6:38 PM This code status was determined by: Patient Full Code 02/13/2014 10:17 AM 02/13/2014 6:26 PM This code status was determined by: Patient
[2020-04-02] MEDS ORDERED: D50W 25 GM/50 ML SYRINGE/VIAL IV ONE (03:52)
--- OUTSIDE RECORDS SUMMARY | 2020-04-02 03:56 | XMS REPORT | Continuity of Care Document ---
:1945 Author Organization [facility] [employer] ZhongSou Care Team Providers Name Role Phone [facility] [employer] Zh[employer]Sou Unavailable Un available Problems Problem Status Onset Classification Date Comments Sourc e Date Reported MYASTHENIA GRAVIS Active [facility] WITH ACUTE 020 Medical C enter EXACERBATIO C-7,T-4 Active [facility] FX,ESOPHAGEAL TEAR 020 M edical Center MYASTHENIA GRAVIS Active [facility] WEAKNESS 019 Medical Ce nter MYASTHENIA GRAVIS [place] [id number] Medical Ce nter Dorsalgia, [facility] unspecified 019 9 Medical Center DIABETIC Active [facility] 019 Medical Ce nter DYSPHAGIA Active [facility] 019 Medical Ce nter RESOLVED VISION Active [facility] emorial LOSS IN LEFT EYE 019 Cit [place] SLURRED SPEE[place] STROKE SYMPTOMS Active [facility] [place]as 019 Medical Ce nter 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 Mis binta eye (disorder) 0 [facility] ,[facility], [place] Azul, [place] Kelly,M [facility] Coronary Active Problem Mischer arteriosclerosis 0 Fran ro,[facility] (disorder) [facility], [place] Auzl, [place] Kelly, [facility] Craniotomy Active Problem Mischer (procedure) 9 [facility], [place] Kelly, [facility] Diabetes mellitus Resolved Problem Mi edwardo (disorder) 0 [facility], [place] Azul, [place] Kelly,M [facility] Heart failure Resolved Problem systilic Mische r (disorder) 0 [facility], [place] Azul, [place] Kelly, [facility] Hypertensive Active Problem Mischer disorder, systemic 0 N euro,[facility] arterial Medical (disorder) Center, [place] Azul, [place] Kelly, [facility] Hypothyroidism Active Problem Misch er (disorder) 0 [facility], [place] Azul, [place] Kelly,M [facility] Itching (finding) Active Problem Mi edwardo 9 [facility], [place] Klely,M [facility] Intracranial Active Problem Mischer meningioma 9 [facility] (disorder) [facility], [place] Kelly,M [facility] Morbid obesity Resolved Problem Misch er (disorder) 0 [facility], [place] Azul, [place] Kelly,M [facility] Obstructive sleep Resolved Problem Mi edwardo apnea syndrome 0 [facility] ,[facility] (disorder) [facility], [place] Azul, [place] Kelly,M [facility] Pain (finding) Active Problem Misch er 9 Neuro,[facility], [place],M [facility] itgasper Visual disturbance Active Problem ischer (disorder) 9 Neuro,[facility], [place] Kelly,M [facility] ity Illness, Memoria l unspecified 9 City Myasthenia gravis [facility] without (acute) 0 [facility] exacerbation Myasthenic crisis Resolved Problem [facility] (disorder) 0 Medical Center, [place] Azul Diabetes mellitus Resolved Problem [facility] type 2 (disorder) 0 [facility], [place] Azul Body mass index Active Problem [facility] 40+ - severely 0 Medic al obese (finding) Cent er, [place] Azul Myasthenia gravis Active Problem [facility] (disorder) 0 Medical Center, [place] Azul Recurrent falls Active Problem [facility] (finding) 0 Medical Center, [place] Azul Type II diabetes Active Problem [facility] mellitus 0 [facility], [place] (finding) Jorge Alberto Altered mental Active Problem [place] status 1 Medical Ce nter Craniotomy Active Problem [place] [address] Medical Ce nter HTN - Hypertension Active Problem [place] [address] Medical Ce nter Lethargic Inactive Problem [place] [address] Medical Ce nter Meningioma of Active Problem [place] as brain 1 Medical Ce nter Visual disturbance Active Problem [place] [address] Medical Ce nter Itching Active Problem [place] [address] Medical Ce nter Pain Active Problem [place] [address] Medical Ce nter 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 0 Medic al Center level of cervical spinal cord, initial encounter Unspecified [facility] fracture of fourth 0 M edical Center thoracic vertebra, initial encounter for closed fracture Contusion of other [facility] specified 0 Medical Ce nter intrathoracic organs, initial encounter Unspecified [facility] fracture of second 0 M edical Center lumbar vertebra, initial encounter for closed fracture 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 0 M edical Center failure Delirium due to [place] known 0 Medical Ce nter physiological condition Acute [facility] posthemorrhagic 0 [facility] anemia Hydrocephalus, [place] unspecified 0 Medical Center Unspecified [facility] protein-calorie 0 [facility] malnutrition Body mass index [place] (BMI) 40.0-44.9, 0 Med ical [place] adult Ventricular [facility] tachycardia 0 [...] Center without current pathological fracture 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 0 edical Center failure Dysphagia, [facility] unspecified 0 Medical Center Atherosclerotic [place] heart disease of 0 [facility] ical [place] qawalangin coronary artery without angina pectoris Physical restraint [facility] status 0 Medical Ce nter Unspecified [facility] dementia without 0 [facility] ica Center behavioral disturbance [facility]) [facility] steroids Hypokalemia [facility] 0 Medical Ce nter Obstructive sleep [facility] apnea (adult) 0 Medica [facility] (pediatric) Other disorders of [facility] phosphorus 0 Medical C enter metabolism Constipation, [place] as unspecified 0 Medical Center Fall on same level [facility] [place] from slipping, 0 Medic al Center tripping and stumbling without subsequent striking against object, initial encounter Other acute [facility] postprocedural 0 Medic al Center pain Acute pain due to [facility] trauma 0 Medical Ce nter Major depressive [facility] disorder, single 0 [facility] ical Center episode, unspecified Abrasion of [...] [place] 0 Medical Ce nter Unqualified visual [facility] loss, right eye, 0 [facility] ical Center normal vision left eye Atherosclerosis of [facility] aorta 0 Medical Ce nter Spinal stenosis, [facility] cervical region 0 [facility] roger Center Repeated falls [facility] xas 0 Medical Ce nter Laceration without [facility] foreign body of 0 [facility] roger [place] right forearm, initial encounter Presence of [facility] [place] fluid drainage device Personal history [facility] of sudden cardiac 0 Ri dical Center arrest History of falling [facility] [place] 0 Medical Ce nter Family history of [facility] diabetes mellitus 0 Ri dical [place] Personal history [facility] of benign neoplasm 0 edical [place] of the brain 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) 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 0 Medic al Center [...] ILLNESS, Active Memoria l UNSPECIFIED [facility] OCULAR PAIN, RIGHT [facility] UNQUALIFIED VISUAL Active [facility] LOSS, LEFT EYE, [facility] ALEXIA UNSP DISP FX OF Active Madelyn cottrell [facility] CERVICAL [facility] ical Center VERTEBR Medications Medication Details Route Status Patient Ordering Order Source Instructions Provider Date lansoprazole 3 30 mg = 10 mL, Active [place] mg/mL oral PO, BID-Before 2019 Medica l suspension Meals, # 600 Center mL, 0 Refill(s) pregabalin 25 mg 25 mg = 1 cap, Active [place] oral capsule PO, Q8H-01, 0 2020 Medic al Refill(s) [place] Sulfamethoxazole 1 tab, PO, No Longer [place] 800 MG / [id number], X 1 Active 2019 Medical Trimethoprim 160 [...] tablet GT, Daily, 0 2020 Medical Refill(s) [place] Sulfamethoxazole 1 tab, PO, Inactive [facility] 800 MG / [id number], 0 2020 Medical Trimethoprim 160 Refill(s) Cente r MG Oral Tablet [Bactrim] Insulin Glargine 15 unit, Inactive [place] 100 UNT/ML SUB-Q, BID, 0 2020 Medical Injectable Refill(s) [place] Solution thiamine 100 mg 200 mg = 2 [place] oral tablet tab, PO, 2020 Medical Daily, 0 Center Refill(s) rosuvastatin 10 mg 10 mg = 1 tab, Active [place] oral tablet PO, Bedtime, 0 2020 Medic al Refill(s) [place] predniSONE 20 mg 20 mg = 1 tab, Inactive [place] oral tablet PO, Daily, 0 2020 Medical Refill(s) [place] Calcium Chloride 500 mL, 500 Inactive [place] 0.0014 MEQ/ML / ml/hr, Infuse 2019 Ri dical Potassium Chloride Over: 1 hr, C enter 0.004 MEQ/ML / Route: IV, Sodium Chloride 500, Drug 0.103 MEQ/ML / form: INJ, Sodium Lactate ONCE, 0.028 MEQ/ML Priority: Injectable STAT, Dosing Solution Weight 84.545 kg, Start date: 02/27/20 7:19:00 CDT, Stop date: 02/27/20 7:19:00 CDT, 0 heparin Notes: porcine [place]er [place] heparin Active [address] [place] [address] heparin Route: MISC, Inactive [place] Drug form: [facility] Medical INJ, ONCE, Center Dosing Weight 84.545, [...] Plasmapheresis Calcium Gluconate 2.5 gm, Route: Inactive [place] IV, ONCE, 2019 Medical Dosing Weight Center 84.545, kg, Start date: 02/25/20 9:32:00 CDT, Stop date: 02/25/20 9:32:00 CDT Calcium Gluconate Notes: WASTE: Inactive [place] F/P - Sink; E 2019 [facility] Trash Bin albumin human 5% Notes: LOT#: Inactive [facility] intravenous M 2019 Medic al solution fg: Center (Same as: Albuminar) "blood product derivative&quo t; WASTE: F/P - Red; E -Red MEDICATION WASTE Product Size: 25 gm Product Wasted: _0__ gm Sulfamethoxazole 1 tab, Route: No Longer [place] 800 MG / PO, Drug Form: 2019 Medical Trimethoprim 160 TAB, Dosing Mitch ter MG Oral Tablet Weight 84.545, [Bactrim] kg, [id number], Start date: 02/22/20 20:00:00 CDT, Stop date: 02/28/20 8:00:00 CDT, 0 insulin glargine 30 unit, No Longer [place] Route: SUB-Q, 2019 Medical Drug form: Center SOLN, BID, Start date: 02/22/20 9:00:00 CDT, Duration: 30 day, Stop date: 03/22/20 17:00:00 CDT, 0 Lactated Ringers 1,000 mL, No Longer [place] IV 1,000 mL Rate: 100 2019 Medical [...] 0 Glucagon 1 mg, Route: No Longer [place] IM, Drug form: Active 2019 Medical PDR/INJ, PRN, Center Dosing Weight 84.545, kg, PRN Blood Glucose Results, Start date: 02/21/20 20:57:00 CDT, Duration: 30 day, Stop date: 03/22/20 20:56:00 CDT, 0 Insulin Lispro Notes: (Same No Longer [place] as: Humalog) Active 2019 Medical Roll in [...] Date albumin human 5% Notes: LOT#: Inactive [facility] intravenous M 2019 Medic al solution fg: Center (Same as: Albuminar) "blood product derivative&quo t; WASTE: F/P - Red; E -Red MEDICATION WASTE Product Size: 25 gm Product Wasted: _0__ gm Calcium Gluconate Notes: WASTE: Inactive [facility] F/P - Sink; E 2019 [facility] Trash Bin albumin human 5% Notes: LOT#: Inactive [facility] intravenous M 2019 Medic al solution fg: Center (Same as: Albuminar) "blood product derivative&quo t; WASTE: F/P - Red; E -Red MEDICATION WASTE Product Size: 25 gm Product Wasted: ___ gm Lyrica Notes: (Same No Longer [place] as: Lyrica) Active 2019 Medical Center [place] 500 Notes: 500mg [place] elemental 2019 [facility] calcium = Center 1250mg calcium carbonate. Contains 500mg elemental calcium. (Same As: OsCal 500) Calcium Gluconate 2 tab, Route: Inactive [place] 650 MG Oral Tablet PO, ONCE, 2019 Med ical Dosing Weight Center 84.545, kg, Start date: 02/20/20 7:03:00 CDT, Stop date: 02/20/20 7:03:00 CDT remove patch 1 patch, No Longer [place] Route: TOP, Active 2019 [facility] Bedtime, Drug Center form: ERFILM, Start date: 02/19/20 21:00:00 CDT, Duration: 30 day, Stop date: 03/19/20 21:00:00 CDT, 0 albumin human 5% Notes: LOT#: Inactive [facility] intravenous M 2019 Medic al solution fg: Center (Same as: Albuminar) "blood product derivative&quo t; WASTE: F/P - Red; E -Red MEDICATION WASTE Product Size: 25 gm Product Wasted: _0__ gm Diphenhydramine 50 mg, Route: Inactive [facility] IVP, ONCE, 2019 Medical Dosing Weight Center 84.545, kg, Start date: 02/19/20 12:00:00 CDT, Stop date: 02/19/20 12:00:00 CDT Calcium Gluconate Notes: WASTE: Inactive [place] F/P - Sink; E 2019 [facility] Trash Bin albumin human 5% Notes: LOT#: Inactive [facility] intravenous M 2019 Medic al solution [...] Longer [place] As: Crestor) Active 2019 [facility] Insulin regular Notes: (Same No Longer [facility] Center Hospital as: Humulin R) 2019 Medical Roll in [place] Center of hands gently; Do not shake vigorously. WASTE: F/P - Black; E - Municipal Trash Bin Stable for 31 days at room temperature Expires in days from Date insulin glargine 20 unit, 0.2 No Longer [place] mL, Route: 2019 Medical SUB-Q, Drug Center [...] 0 Glucagon 1 mg, Route: No Longer [place] IM, Drug form: Active 2019 Medical PDR/INJ, PRN, Center Dosing Weight 84.545, kg, PRN Blood Glucose Results, Start date: 02/18/20 16:05:00 CDT, Duration: 30 day, Stop date: 03/19/20 16:04:00 CDT, 0 Insulin regular Notes: (Same No Longer [facility] Center Hospital as: Humulin R) Active 2019 Medical [place] in [place] Center of hands gently; Do not shake [...] 6:25:00 CDT Glucagon 1 mg, Route: Inactive [place] IM, PRN, 2019 Medical Dosing Weight Center 84.545, kg, PRN Blood Glucose Results, Start date: 02/18/20 6:26:00 CDT, Duration: 30 day, Stop date: 03/19/20 6:25:00 CDT Insulin regular 1 unit, Route: Inactive [place] SUB-Q, 2019 Medical TID-Before Center Meals, Dosing Weight 84.545, kg, PRN Blood Glucose Results, Start date: 02/18/20 6:26:00 CDT, Duration: 30 day, Stop date: 03/19/20 6:25:00 CDT potassium chloride Notes: (Same Inactive [place] 20 mEq oral as: K-Dur ) 2019 [...] patients. Tylenol Notes: Do not No Longer [place] exceed 4 Active 2019 Medical gm/day. (Same Center as: Tylenol) Calcium Gluconate Notes: WASTE: Inactive [place] F/P - Sink; E 2019 [facility] Trash Bin albumin human 5% Notes: LOT#: Inactive [facility] intravenous M 2019 Medic al solution fg: Center (Same as: Albuminar) "blood product derivative&quo t; WASTE: F/P - Red; E -Red MEDICATION WASTE Product Size: 25 gm Product Wasted: ___ gm Pyridostigmine 90 mg, Route: Inactive [place] GT, Drug form: 2019 Medical TAB, Q8H, Center Dosing Weight 84.545, kg, Start date: 02/17/20 16:00:00 CDT, Duration: 30 day, Stop date: 03/18/20 8:00:00 CDT, 0 Mestinon Notes: (Same No Longer [place] as: Mestinon) Active [address] [place] [address] Center pyridostigmine Notes: (Same No Longer [place] Longer [place] as as: Prinivil, Active 2020 [facility] Zestril) Center Sertraline Notes: (Same No Longer [place] as as: Zoloft) Active 2019 [facility] Prednisone Notes: Take [place] Longer [place] with food. Active 2019 [facility] Thiamine Notes: (Same No Longer [place] As: Vitamin Active 2019 [facility] B1) Center Thyroxine Notes: Take 1 No Longer [place] as hour before or [address] [place] [address] 2 hours after Center meal; Enteral feeds [...] No Longer [place] IM, Drug form: 2019 [facility] PDR/INJ, PRN, Center Dosing Weight 84.545, kg, PRN Blood Glucose Results, Start date: 02/17/20 0:59:00 CDT, Duration: 30 day, Stop date: 03/18/20 0:58:00 CDT, 0 Insulin Lispro Notes: (Same No Longer [place] as: Humalog) 2019 [facility] Roll in palms Center of [...] 0:57:00 CDT Pyridostigmine Notes: (Same No Longer [place] as: Mestinon) Active 2020 Medical Center Prednisone Notes: Take [place] Longer [place] with food. Active 2020 [facility] Dextrose 5% in 1,000 mL, [place]er [place] Water IV 1,000 mL Rate: 50 Active 2019 Medic al ml/hr, Infuse Center over: 20 hr, Route: IV, Dosing Weight 84.545 kg, Total Volume: 1,000, Start date: 02/16/20 13:53:00 CDT, Duration: 30 day, Stop date: 03/17/20 13:52:00 CDT, 1.91, m2, 0 Pyridostigmine 60 mg = 1 tab, Active [place] 60 MG Oral PO, TID, 0 2019 Ri dical Tablet [Mestinon] Refill(s) Cent er Clonazepam Notes: (Same No Longer [place] As: KlonoPIN) Active 2019 [facility] Hazardous Drug Center Group 3:Reproductive risk Hazardous Drug -- Refer to safe handling procedure PPE Matrix Acetaminophen 500 1,000 mg = 2 No Longer [place] MG Oral Tablet tab, PO, TID, Active 2019 Med ical [Tylenol] 0 Refill(s) [place] Docusate Sodium 50 Notes: (Same Inactive [place] MG / sennosides, as Senokot-S) 2019 edical [facility] 8.6 MG Oral Equiv. to Center Tablet Cassidy-Colace. Pyridostigmine Notes: (Same Inactive [place] as: Mestinon) 2020 [facility] Furosemide 20 MG Notes: (Same Inactive [facility] Center Hospital Oral Tablet as: Lasix) [facility] Medical May cause GI Center upset. Give with food or milk. Lisinopril Notes: (Same [place] as: Prinivil, 2019 [facility] Zestril) [place] Sertraline Notes: (Same Inactive s as: Zoloft) [address] [place] [address] thiamine 100 mg 200 mg = 2 No Longer [place] oral tablet tab, PO, Daily Active 2019 [facility] Center 3 ML Insulin, See Active [place] Aspart, Human 100 Instructions, 2019 Medical UNT/ML Pen 10 unit SUB-Q Center Injector [NovoLog] TID-Before Meals and at bedtime, 0 Refill(s) 3 ML insulin 30 unit, No Longer [place] detemir 100 UNT/ML SUB-Q, BID, 0 Active 2019 [facility] Prefilled Syringe Refill(s) Cent er [Levemir] Thyroxine Notes: Take 1 Inactive [facility] s hour before or [address] [place] [address] 2 hours after Center meal; Enteral feeds may interefere with the absorption of this medication. (Same as:Synthroid) heparin sodium, Notes: porcine No Longer [place] porcine 2500 heparin Active 2019 [facility] UNT/ML Injectable Center Solution rosuvastatin Notes: (Same No Longer [place] As: Crestor) Active [address] [place] [address] Dextrose 50% 12.5 gm, 25 [place]er [place] Syringe (D50W) mL, Route: 2019 Medica l IVP, Drug Center Form: INJ, Dosing Weight 84.545, kg, PRN, PRN Blood Glucose Results, Start date: 02/15/20 19:49:00 CDT, Duration: 30 day, Stop date: 03/16/20 19:48:00 CDT, 0 Glucagon 1 mg, Route: No Longer [place] IM, Drug form: 2019 [facility] PDR/INJ, PRN, Center Dosing Weight 84.545, kg, PRN Blood Glucose Results, Start date: 02/15/20 19:49:00 CDT, Duration: 30 day, Stop date: 03/16/20 19:48:00 CDT, 0 Insulin Lispro Notes: (Same No Longer [place] as: Humalog) Active 2019 Medical Roll in palms Center of hands gently; Do not shake vigorously. WASTE: F/P - Black; E - Municipal Trash Bin Stable for 28 days at room temperature. Expires in days from Date Amlodipine Notes: (Same No Longer [place] as as: Norvasc) Active 2019 [facility] Potassium Chloride 10 mEq = 1 Active [place] 10 MEQ Extended tab, PO, 2019 Medical Release Tablet Daily, # 30 Cente r [Klor-Con] tab, 0 Refill(s), other amLODIPine 5 mg 5 mg = 1 tab, Active [facility] oral tablet PO, Daily, # 2019 Medical 30 tab, 0 Center Refill(s), Pharmacy: [facility]/pharmacy #[id number], 149.86, cm, 12/06/19 15:12:00 CDT, Height, [...] 0 Glucagon 1 mg, Route: No Longer [place] IM, Drug form: Active 2020 Medical PDR/INJ, PRN, Center Dosing Weight 90, kg, PRN Blood Glucose Results, Start date: 12/19/19 8:19:00 CDT, Duration: 30 day, Stop date: 01/18/20 8:18:00 CDT, 0 Insulin Lispro Notes: (Same No Longer [place] as: Humalog) Active 2020 Medical Roll in palms Center of hands gently; Do not shake vigorously. WASTE: F/P - Black; E - Municipal Trash Bin Stable for 28 days at room temperature. Expires in days from Date D50W (bolus) IV 12.5 gm, 25 No Longer [place] mL, Route: 2019 Medical IVP, Drug Center Form: INJ, Dosing Weight 90, kg, PRN, PRN Blood Glucose Results, Start date: 12/19/19 8:18:00 CDT, Duration: 30 day, Stop date: 01/18/20 8:17:00 CDT, 0 Glucagon 1 mg, Route: No Longer [place] IM, Drug form: 2019 Medical PDR/INJ, PRN, Center Dosing Weight 90, kg, PRN Blood Glucose Results, Start date: 12/19/19 8:18:00 CDT, Duration: 30 day, Stop date: 01/18/20 8:17:00 CDT, 0 Insulin Lispro Notes: (Same No Longer [place] as: Humalog) Active 2019 Medical Roll in palms Center of hands gently; Do not shake vigorously. WASTE: F/P - Black; E - Municipal Trash Bin Stable for 28 days at room temperature. Expires in days from Date Potassium Chloride Notes: (Same Inactive [place] 1.33 MEQ/ML Oral as: Potassium 2020 M [...] from Date potassium Notes: (Same No Longer [facility] phosphate-sodium as: Phos-NaK) 2019 M edical phosphate [...] Sulfate) Center potassium Notes: (Same No Longer [facility] phosphate as: K Active 2019 Medical Phosphate.) [...] / as: Duoneb) 2019 Medical Ipratropium Center [place] 0.167 MG/ML Inhalant Solution Furosemide Notes: (Same [...] (Same No Longer as: Lovenox) Active 2020 [facility] Center Magnesium Sulfate Notes: WASTE: [...] Longer [place] As: KlonoPIN) Active 2019 [facility] Hazardous Drug Center Group 3:Reproductive risk Hazardous Drug -- Refer to safe handling procedure PPE Matrix Lorazepam Notes: (Same Inactive [place] as: Ativan) 2020 Medical [facility] Notes: Infuse No Longer [place] over 15 Active 2019 Medical minutes Do Center not exceed 4gm/day of acetaminophen MEDICATION WASTE Product Size: 1000 mg Product Wasted: ___ mg Lidocaine Notes: (Same [place] Longer [place] Hydrochloride 0.02 as: Xylocaine Active 2019 Medical MG/MG Topical Gel Jelly, Glydo) Center Morphine Notes: (Same No Longer [place] as:MORPhine 2019 Medical Sulfate) Center Blistex topical Notes: Same No Longer [place] ointment as: Blistex Active 2019 Medical Center LR IV 1,000 mL 1,000 mL, [place] Longer [place] Rate: 75 2019 Medical ml/hr, Infuse Center over: 13.3 hr, Route: IV, Dosing Weight 90 kg, Total Volume: 1,000, Start date: 12/11/19 0:31:00 CDT, Duration: 1 day, Stop date: 12/12/19 0:30:00 CDT, 1.98, m2, 0 pantoprazole Notes: For IV No Longer [place] push Active 2019 [facility] reconstitute Center with 10 ml 0.9% sodium chloride and push over 2 minutes. (Same as: Protonix) Lovenox Notes: (Same No Longer [place] as: Lovenox) [address] Lanolin 0.157 Notes: (Same No Longer [place] MG/MG / Menthol as: 2019 Medical 0.0044 MG/MG / Calmoseptine) Mitch ter Petrolatum 0.24 MG/MG / Zinc Oxide 0.206 MG/MG Topical Ointment [Calmoseptine] insulin, isophane Notes: (Same No Longer [place] as: Humulin N) 2019 Medical Roll in palms Center of hands gently; Do not shake vigorously. WASTE: F/P - Black; E - Municipal Trash Bin Stable for 31 days at room temperature Expires in days from Date Lasix Notes: (Same No Longer [place] as: Lasix) Active 2019 Medical May cause [...] 0 Insulin Lispro Notes: (Same No Longer [place] as: Humalog) 2019 Medical Roll in palms Center of hands gently; Do not shake vigorously. WASTE: F/P - Black; E - Municipal Trash Bin Stable for 28 days at room temperature. Expires in days from Date Dextrose 5% with 1,000 mL, No Longer [place] 0.45% NaCl IV Rate: 75 Active 2019 [...] No Longer [place] as:Altace) Active 2020 Medical [place] Dextrose 50% in 12.5 gm, 25 No [...] Longer [place] with food. Active 2020 [facility] Potassium Chloride Notes: (Same Inactive [place] as: Potassium 2020 [facility] Chloride) Center Lovenox Notes: (Same [...] 0 Insulin regular Notes: (Same No Longer [facility] as: Humulin R) Active 2020 Medical Roll in palms Center of hands gently; Do not shake vigorously. WASTE: F/P - Black; E - Municipal Trash Bin Stable for 31 days at room temperature Expires in days from Date Famotidine 20 MG Notes: (Same No Longer [facility] Oral Tablet as: Pepcid) Active 2020 [facility] [Pepcid] Center chlorhexidine Notes: (Same No Longer [facility] gluconate 1.2 As: Peridex) Active 2020 Medic al MG/ML Mouthwash Center ocular lubricant Notes: (Same No Longer [facility] as: Active 2020 [facility] Lacri-Lube, Center Puralube, Duratears Naturale, Artificial Tears, and Tears Again ) chlorhexidine Notes: (Same No Longer [facility] gluconate 1.2 As: Peridex) Active 2020 Medic al MG/ML Mouthwash Center Hydrocortisone Notes: (Same No Longer [facility] as: Active 2020 [facility] Solu-CORTEF) Center Neurontin Notes: ([facility] as: Neuront[facility]) Active [address] [place] [address] Center NS 1,000 mL 1,000 mL, No Longer [facility] Rate: 40 Active 2020 [facility] ml/hr, Infuse Center over: 25 [...] being intubated (unless the nurse is a CHIEF ENTERPRISE ARCHITECT). Same as: Diprivan norepinephrine Route: IV, Inactive [...] 11:21:00 CDT magnesium sulfate Route: IV, Inactive [place] (ANES) 500 mg Drug form: 2019 Medical [...] CDT propofol (ANES) 10 Route: IV, Inactive [facility] [place] mg Drug form: 2019 Medical INJ, [...] CDT Albuterol 0.833 Notes: (Same No Longer [place] MG/ML / as: Duoneb) Active 2020 Medical Ipratropium Center [place] 0.167 MG/ML Inhalant Solution Humalog Notes: (Same [...] Insulin Glargine 20 unit, 0.2 No Longer [place] 100 UNT/ML mL, Route: 2019 Medical Injectable [...] Dextrose 5% with 1,000 mL, No Longer [place] 0.45% NaCl IV Rate: 40 2019 Medical 1,000 mL ml/hr, Infuse Center over: 25 hr, Route: IV, Dosing Weight 90 kg, Total Volume: 1,000, Start date: 11/29/19 6:28:00 CDT, Duration: 30 day, Stop date: 12/29/19 6:27:00 CDT, 1.98, m2, 0 Melatonin 3 MG Notes: (Same No Longer [facility] Extended Release as: Melatonin) Active 2019 Medical Tablet Center sennosides, NURSING HOME Notes: (Same No Longer 11/25/ H [place] as: Senokot) Active 2019 Medical Center Insulin Glargine 20 unit, 0.2 No Longer [place] 100 UNT/ML mL, Route: Active 2019 Medical Injectable SUB-Q, Drug Center Solution [Lantus] form: SOLN, Q12H, Dosing Weight 90, kg, Start date: 11/25/19 21:00:00 CDT, Duration: 30 day, Stop date: 12/25/19 9:00:00 CDT, 0 Ramipril Notes: (Same No Longer [facility] as:Altace) Active 2019 [facility] Center Oxycodone Notes: (Same [place] Longer [place] Hydrochloride 1 as: 2019 Medical MG/ML Oral 'Roxicodone) Center Solution rosuvastatin Notes: (Same [place] Longer [place] As: Crestor) Active 2019 [facility] Acetaminophen 325 650 mg = 2 [...] 3 ML Insulin, 10 unit, No Longer [facility] Aspart, Human 100 SUB-Q, Active 2019 [...] CDT, 0 Insulin regular Notes: (Same Inactive [place] as: Humulin R) 2020 Medical Roll in [...] 0 Glucagon 1 mg, Route: No Longer [place] IM, Drug form: Active 2019 Medical PDR/INJ, [...] saline 0.9% 1,000 mL, No Longer H [place] IV 1,000 mL Rate: [address] [place] [address] ml/hr, Infuse Center over: 13.3 hr, Route: IV, Dosing Weight 90 kg, Total Volume: 1,000, Start date: 11/23/19 10:33:00 CDT, Duration: 30 day, Stop date: 12/23/19 10:32:00 CDT, 1.98, m2, 0 Zoloft Notes: (Same No Longer [facility] as: Zoloft) Active 2020 [facility] Center Prednisone Notes: Take No Longer [place] with food. Active 2020 [facility] Docusate Notes: (Same No Longer [facility] as: Colace) Active 2020 Medical (Do Not Crush) Center sennosides, NURSING HOME Notes: (Same No Longer 11/22/ M H [place] as: Senokot) Active 2020 [facility] Albuterol 0.833 Notes: (Same No Longer 11/22/ M H [place] MG/ML / as: Duoneb) Active 2020 [facility] Ipratropium [place] 0.167 MG/ML Inhalant Solution Synthroid Notes: Take 1 No Longer [place] as hour before or Active 2020 Medical 2 hours after Center meal; Enteral feeds may interefere with the absorption of this medication. (Same as:Synthroid) remove patch Notes: Remove No Longer [place] patch 12 hours 2019 Medical after Center application each day. Pyridostigmine Notes: (Same No Longer [place] as: Mestinon) Active 2019 [facility] Amlodipine Notes: (Same No Longer [place] as as: Norvasc) Active [address] [place] [address] Enoxaparin Notes: (Same Inactive [place] as: Lovenox) [address] [place] [address] Lidocaine Notes: Apply No Longer [place] [...] 0 Glucagon 1 mg, Route: No Longer [place] IM, Drug form: 2019 Medical PDR/INJ, PRN, Center Dosing Weight 100, kg, PRN Blood Glucose Results, Start date: 11/22/19 16:16:00 CDT, Duration: 30 day, Stop date: 12/22/19 16:15:00 CDT, 0 Insulin regular Notes: (Same [facility] Longer [facility] as: Humulin R) 2019 Medical Roll [...] Saline Flush 0.9% Notes: Same No Longer [place] as: BD Active 2019 Medical Posiflush Center Sterile Ativan Notes: (Same Inactive [place] as: Ativan) 2019 [facility] Ativan 1 mg, Route: Inactive [place] IVP, Drug 2019 Medical form: INJ, Center ONCE, Dosing Weight 100, kg, PRN as needed for anxiety, Priority: Routine, Start date: 11/22/19 15:28:00 CDT Calcium Chloride 500 mL, Infuse Inactive [place] 0.0014 MEQ/ML / Over: 1 hr, 2019 [facility] roger Potassium Chloride Route: IV, Ce nter 0.004 MEQ/ML / ONCE, Sodium Chloride Priority: 0.103 MEQ/ML / STAT, Dosing Sodium Lactate Weight 100 kg, 0.028 MEQ/ML Start date: Injectable 11/22/19 Solution 11:17:00 CDT, Stop date: 11/22/19 11:17:00 CDT Iohexol 150 mL, Route: Inactive [place] IVP, Drug 2019 Medical Form: SOLN, Center Dosing Weight 100, kg, ONCALL, STAT, Start date: 11/22/19 9:50:00 CDT, Duration: 1 doses or times, Dose = 2.2ml/kg, Max dose = 150ml -- "To be infused by Radiology Staff ONLY" Fentanyl Notes: (Same Inactive [place] as: Sublimaze) 2019 Medical Preservative Center free. [...] Hospital IVP, Drug 2020 Medical Form: SOLN, [place] Dosing Weight 100, kg, ONCALL, STAT, Start date: 11/22/19 7:08:00 CDT, Duration: 1 doses or times, Dose = 2.2ml/kg, Max dose = 100ml -- "To be infused by Radiology Staff ONLY" heparin flush Notes: (Same Inactive [facility] [place] as: Heparin 2019 Medical Lock Flush) [place] heparin 100 unit, Inactive [facility] Route: IVP, 2019 Medical ONCE, Dosing Center Weight 100, kg, Start date: 03/04/19 17:24:00 CDT, Stop date: 03/04/19 17:24:00 CDT rosuvastatin 10 mg 20 mg = 2 tab, Active [facility] oral tablet PO, Bedtime, # 2019 Medic al 180 tab, 3 Center Refill(s) amLODIPine 10 mg 10 mg, PO, Active [facility] [place] oral tablet Daily, # 30 2019 Medical tab, 0 Center Refill(s) Ergocalciferol 50,000 Active [facility] [address] UNT Oral IntlUnit = 1 2019 Medi [...] [place] oral tablet tab, PO, 2019 Medical [id number], X 7 Center day, # 14 tab, [...] PO, Active [place] 800 MG / [id number], X 7 2019 Medical Trimethoprim 160 day, [...] [place] oral tablet tab, PO, 2019 Medical [id number], 0 Center Refill(s) meclizine 12.5 mg 12.5 [...] tab, PO, Inactive [place] 800 MG / [id number], 0 2019 Medical Trimethoprim 160 Refill(s) Cente r MG Oral Tablet [Bactrim] Acetaminophen 325 650 mg = 2 Inactive [place] MG Oral Tablet tab, PO, Q6H, 2019 Med ical PRN Pain Score Center 7-10, 0 Refill(s) Ergocalciferol 50,000 Inactive [facility] [address] UNT Oral IntlUnit = 1 2019 Medi roger Capsule cap, PO, Q7D, Center 0 Refill(s) Famotidine 20 MG 20 mg = 1 tab, Inactive [place] Oral Tablet PO, Daily, 0 2018 Medical Refill(s) [place] Hydroxyzine 25 mg = 1 cap, Inactive [place] Hydrochloride 25 PO, QID, PRN 2019 Me dical MG Oral Capsule Anxiety, 0 Cente r Refill(s) predniSONE 5 mg 25 mg = 5 tab, Inactive [facility] oral tablet PO, Daily, 0 2018 Medical Refill(s) [place] Flagyl 500 mg, 1 tab, Inactive [facility] Route: PO, 2019 Medical Drug form: [place] TAB, [id number], Dosing Weight 100, kg, Start [...] [place] as: Antivert) Active 2019 Medical [place] pyridostigmine 60 60 mg = 1 tab, No Longer 03/02 [place] mg oral tablet PO, TID, # 180 Active 2019 Me dical tab, 0 Center Refill(s) Hydroxyzine Notes: (Same [place] Long[place] as: Vistaril) Active 2019 [facility] Insulin Glargine 15 unit, 0.15 No Longer [place] 100 UNT/ML mL, Route: Active 2019 [facility] Injectable SUB-Q, Drug Center Solution [...] [facility] as: SEROquel) Active 2019 [facility] linezolid 600 mg, 1 tab, [place]er [place] Route: PO, Active 2019 Medical Drug form: Center TAB, [id number], Dosing Weight 90.909, kg, Start date: 02/26/19 17:00:00 CDT, Duration: 10 day, Stop date: 03/08/19 8:00:00 CDT, ABX Indication: Skin/Soft Tissue Infection, 0 Sulfamethoxazole 2 tab, Route: No Longer [facility] 800 MG / PO, Drug Form: Active 2019 [facility] Trimethoprim 160 TAB, Dosing Mitch ter MG Oral Tablet Weight 90.909, [Bactrim] kg, [id number], Start date: 02/26/19 17:00:00 CDT, Duration: 10 day, Stop date: 03/08/19 5:00:00 CDT, 0 Lactated Ringers Route: IV, Inactive [place] Injection IV Total Volume: 2019 Medic al [...] vigorously. WASTE: F/P - Black; E - iMemories Trash Bin Stable for 31 days at [...] 03/24/19 23:52:00 CDT ertapenem Notes: No Longer [place] MEDICATION Active 2019 Medical WASTE Center Product Size: 1000 mg Product Wasted: ___ mg insulin, isophane Notes: (Same No Longer [place] as: Humulin N) Active 2019 Medical Roll [...] Med ical MG/ML Topical ONCE, Start Center [place] date: 02/21/19 13:20:00 CDT, Stop date: 02/21/19 [...] Saline Flush 0.9% Notes: (Same No Longer [place] as: BD Active 2019 Medical Posiflush) Center insulin, isophane Notes: (Same Inactive [facility] as: Humulin N) 2019 Medical Roll in palms Center of hands gently; Do not shake vigorously. WASTE: F/P - Black; E - Municipal Trash Bin Stable for 31 days at room temperature Expires in days from Date Melatonin Notes: (Same No Longer [facility] s as: Melatonin) Active 2018 Medical Center Zyprexa Notes: (Same No Longer [place] As: ZyPREXA Active 2019 Medical IM). Center [...] [place] IVP, Drug 2019 Medical Form: MORAIMA [place] Dosing Weight 90.909, kg, ONCALL, STAT, Start date: 02/19/19 9:17:00 CDT, Duration: 1 doses or times, Dose = 2.2ml/kg, Max dose = 100ml -- "To be infused by Radiology Staff ONLY" insulin detemir Notes: [place] Non-Formulary 2019 Medical Drug (Same Center as [facility]) "Single Patient Use Only" Do not hold insulin without contacting prescriber WASTE: F/P - Black; E - Municipal Trash Bin Stable for 42 days at room temperature Expires in days from Date insulin detemir Notes: No Longer [place] as Non-Formulary Active 2019 Medical Drug (Same Center as [facility]) "Single Patient Use Only" Do not [...] Active 2019 Medical Drug (Same Center as [facility]) "Single Patient Use Only" Do not hold insulin without contacting prescriber WASTE: F/P - Black; E - Municipal Trash Bin Stable for 42 days at room temperature Expires in days from Date Seroquel Notes: (Same No Longer [facility] as: SEROquel) Active 2019 Medical Center insulin detemir Notes: [place] Non-Formulary 2019 Medical Drug (Same Center as [facility]) "Single Patient Use Only" Do not hold insulin without contacting prescriber WASTE: F/P - Black; E - Municipal Trash Bin Stable for 42 days at room temperature Expires in days from Date Iohexol Notes: (same Inactive [facility] as:Omnipaque 2019 Medical 350). WASTE: Center F/P - Black; E - Municipal Trash Bin insulin detemir Notes: Inactive [facility] Non-Formulary 2019 Medical Drug (Same Center as [facility]) "Single Patient Use Only" Do not hold insulin without contacting prescriber WASTE: F/P - Black; E - Municipal Trash Bin Stable for 42 days at room temperature Expires in days from Date vancomycin + 2001 mg: No Longer [facility] Sodium Chloride infuse over Active 2018 Medi [...] ___ mg Famotidine Notes: (Same No Longer [facility] as as: Pepcid) Active 2019 Medical [place] vancomycin + 2001 mg: Inactive [facility] 20:31:00 CDT Morphine Notes: (Same No Longer [place] as:MORPhine Active 2019 Medical Sulfate) Center Insulin [...] infuse over 2019 Medical 2.5 hours Center [facility] Notes: No Longer [facility] Non-Formulary Active 2019 Medical Drug (Same Center as [facility]) "Single Patient Use Only" Do not [...] Wasted: _0__ mg Vancomycin 2001 mg: Inactive [place] infuse over 2019 Medical 2.5 hours For Center adult patients only: Round to nearest 250 mg per Medical Staff approval MEDICATION WASTE Product Size: 1000 mg Product Wasted: ___ mg Isolyte S PH-7.4 Notes: (Same Inactive [facility] ([facility] IV as: Isolyte S 2019 Medical PH 7.4) Center Clindamycin Notes: (Same [place] Long[place] As: Cleocin) Active 2019 Medical Center [facility] Notes: No Longer [place] Non-Formulary Active 2019 Medical Drug (Same Center as [facility]) "Single Patient Use Only" Do not [...] days from Date Humalog Notes: (Same Inactive [place] as: Humalog) 2019 Medical Roll in palms [...] normal saline 0.9% 1,000 mL, No Longer [facility] IV 1,000 mL Rate: 75 Active 2019 Medical ml/hr, Infuse Center over: 13.3 hr, Route: IV, Dosing Weight 90.909 kg, Total Volume: 1,000, Start date: 02/07/19 22:50:00 CDT, Duration: 30 day, Stop date: 03/09/19 22:49:00 CDT, 1.99, m2, 0 remove patch 1 patch, No Longer [place] Route: TOP, Active 2019 Medical Bedtime, Drug [...] Insulin Lispro Notes: Roll in Inactive H [place] palms of hands 2019 Medical gently; do [...] 0 Ergocalciferol 50,000 [place] [address] UNT Oral IntlUnit, 1 Active 2019 Medic al Capsule cap, Route: Center PO, Drug form: CAP, Q7D, Dosing Weight 90.909, kg, Start date: 02/07/19 13:16:00 CDT, Duration: 30 day, Stop date: 04/04/19 9:00:00 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, 0 Ativan Notes: (Same No Longer [place] as: Ativan) Active 2019 [facility] Calcium Carbonate Notes: No Longer [place] 1250 MG / (calcium Active 2019 [facility] Cholecalciferol carbonate-vit Ce nter 400 UNT Chewable D Tablet 500mg-400unit chew TAB) Same as: Oscal 500+D heparin Notes: porcine [place] Longer [place] heparin Active 2019 [facility] tramadol 50 mg, 1 tab, No [...] Furosemide 40 MG Notes: (Same No Longer [place] Oral Tablet as: Lasix) Active 2019 Medical [...] 500 mL as: Isolyte S Active 2019 [facility] PH 7.4) Center Insulin Glargine [...] 0 Glucagon 1 mg, Route: No Longer [place] IM, Drug form: Active 2019 Medical PDR/INJ, PRN, Center Dosing Weight 90.909, kg, PRN Blood Glucose Results, Start date: 02/05/19 16:39:00 CDT, Duration: 30 day, Stop date: 03/07/19 16:38:00 CDT, 0 Insulin regular Notes: (Same No Longer [place] as: Humulin R) Active 2019 Medical Roll in palms Center of hands gently; Do not shake vigorously. WASTE: F/P - Black; E - iMemories Trash Bin Stable for 31 days at room temperature Expires in days from Date Mestinon Notes: (Same No Longer [place] as: Mestinon) Active 2019 [facility] Prednisone 30 mg, 3 tab, No [...] MG 40 mg = 1 tab, Active [place] Oral Tablet PO, BID 2019 Medical [Lasix] Diuretic, 0 Center Refill(s) Furosemide 40 MG Notes: (Same Inactive H [place] Oral Tablet as: Lasix) 2019 Medical [Lasix] [...] Inactive [place] F/P - Sink; E 2019 [facility] Trash Bin predniSONE 20 mg 40 [...] other albumin human 5% Notes: LOT#: Inactive [facility] intravenous M 2018 Medic al solution fg: Center (Same as: Albuminar) "blood product derivative&quo t; WASTE: F/P - Red; E -Red MEDICATION WASTE Product Size: 25 gm Product Wasted: ___ gm Prednisone Notes: Take No Longer [place] with food. Active 2019 Medical Center Insulin Glargine 34 unit, 0.34 No Longer [place] 100 UNT/ML mL, Route: Active 2019 Medical [...] Date Insulin Glargine Notes: (Same No Longer [place] 100 UNT/ML as: Lantus) Do Active 2018 [...] Bin albumin human 5% Notes: LOT#: Inactive [facility] intravenous M 2018 Medic al solution [...] No Longer [place] Chloraseptic Active 2019 Medical [place] (Same Center as: Chloraseptic, Sore Throat [place]) WASTE: F/P - Black; E - Municipal [...] 2019 Medical (Do Not Crush) Center sennosides, NURSING HOME Notes: (Same No Longer [place] 8.6 MG Oral Tablet as: Senokot) Active 2019 Medical Center Prednisone Notes: Take No Longer [place] with food. Active 2018 [facility] insulin, isophane Notes: (Same No Longer [place] as: Humulin N) Active 2018 Medical Roll in palms Center of hands gently; Do not shake vigorously. WASTE: F/P - Black; E - Municipal Trash Bin Stable for 31 days at room temperature Expires in days from Date insulin, isophane Notes: (Same Inactive [place] as: Humulin N) 2019 Medical Roll in palms Center of hands gently; Do not shake vigorously. WASTE: F/P - Black; E - Municipal Trash Bin Stable for 31 days at room temperature Expires in days from Date heparin sodium, Notes: porcine No Longer [place] porcine 2500 heparin Active 2018 [facility] UNT/ML Injectable Center Solution Dextrose 50% 12.5 gm, 25 [place] Longer [place] Syringe mL, Route: Active 2018 [facility] IVP, Drug Center Form: INJ, Dosing Weight 92, kg, PRN, PRN Blood Glucose Results, Start date: 12/27/18 15:14:00 CDT, Duration: 30 day, Stop date: 01/26/19 15:13:00 CDT, 0 Glucagon 1 mg, Route: No Longer [place] IM, Drug form: Active 2018 [facility] PDR/INJ, PRN, Center Dosing Weight 92, kg, PRN Blood Glucose Results, Start date: 12/27/18 15:14:00 CDT, Duration: 30 day, Stop date: 01/26/19 15:13:00 CDT, 0 Insulin regular Notes: (Same No Longer [facility] as: Humulin R) Active 2019 Medical Roll [...] Longer [place] as: Pepcid) Active 2019 [facility] Midodrine Notes: (Same [place] Longer [place] as:Proamatine) Active 2019 [facility] albumin human 5% Notes: LOT#: Inactive [facility] intravenous 2019 Medica l solution Mfg: Center WASTE: F/P - Red; E -Red (Same as: Albuminar) "blood product derivative" Midodrine Notes: (Same Inactive [facility] as:Proamatine) 2019 [facility] Center azithromycin 500 Notes: Take [...] line. Insulin regular Notes: Final No Longer [facility] 100 unit + Concentration Active 2019 [facility] 1unit/1ml Center WASTE: F/P - Black; E - Municipal Trash Bin Dextrose 50% 6.25 gm, 12.5 No Longer [facility] Syringe mL, Route: Active 2019 [facility] IVP, Drug Center Form: INJ, Dosing Weight 92, kg, PRN, PRN Abnormal Lab Result, Start date: 12/25/18 20:23:00 CDT, Duration: 30 day, Stop date: 01/24/19 20:22:00 CDT, 0 Famotidine Notes: (Same No Longer [place] as: Pepcid) Active 2019 Medical Center Mestinon Notes: (Same No Longer [facility] as: Mestinon) Active 2019 Medical [place] Sodium Chloride 3% Notes: SEE RT No Longer 12/25 [facility] inhalation DOCUMENTATION Active 2019 Medical solution (Same as: [place] Hypertonic Saline 3%, Inhalation) fondaparinux Notes: (Same No Longer [place] as: Arixtra) Active 2019 [facility] Center Albuterol 1 MG/ML Notes: SEE RT No Longer [facility] Inhalant Solution DOCUMENTATION Active 2019 Medical (Same as: [place] Proventil) Calcium Gluconate Notes: WASTE: Inactive [facility] F/P - Sink; E [address] [facility] Trash Bin albumin human 5% Notes: LOT#: Inactive [facility] intravenous M 2019 Medic al solution [...] as:Synthroid) ocular lubricant Notes: (Same No Longer [place] as: Active 2018 Medical Lacri-Lube, Center Puralube, Duratears Naturale, Artificial Tears, and Tears Again ) Prednisone 50 MG 50 mg = 1 tab, No Longer [place] Oral Tablet PO, Daily, 0 Active 2018 Medical Refill(s) Center rosuvastatin 20 mg 20 mg = 1 tab, No Longer 11/30 [place] oral tablet PO, Bedtime, 0 Active 2018 Medic al Refill(s) Center ramipril 10 mg 10 mg = 1 cap, Active [place] oral capsule PO, Daily, 0 2018 Medica l Refill(s) Center Amlodipine 10 mg, PO, Active [facility] Daily, 0 2018 Medical Refill(s) Center Furosemide 80 mg, PO, No Longer [facility] Daily, 0 Active 2018 Medical Refill(s) Center Potassium Chloride 20 mEq, PO, Active H [place] Daily, 0 2018 Medical Refill(s) Center Pyridostigmine [...] Longer [facility] Refill(s) Active 2019 [facility] Trulicity Pen SUB-Q, 0 Active [facility] Refill(s) 2019 [facility] Famotidine 20 mg, 2 mL, No Longer [place] as Route: IVP, Active 2019 Medical Drug form: Center INJ, Q12H, Dosing Weight 102.273, kg, Start date: 12/24/18 21:00:00 CDT, Duration: 30 day, Stop date: 01/23/19 9:00:00 CDT, 0 docusate sodium Notes: (Same No Longer [facility] as: Colace) Active 2019 Medical Center sennosides, NURSING HOME Notes: (Same No Longer [facility] 8.6 MG Oral Tablet as: Senokot) Active 2019 [facility] Ceftriaxone Notes: [facility] Long[facility] MED[facility] Active 2019 Medical WASTE Center Product Size: 2000 mg Product Wasted: ___ mg Albuterol 0.833 Notes: (Same No Longer [facility] MG/ML / as: Duoneb) Active 2019 [facility] Ipratropium [place] 0.167 MG/ML Inhalant Solution [DuoNeb] chlorhexidine Notes: (Same No Longer [facility] gluconate 1.2 As: Peridex) Active 2019 Medic al MG/ML Mouthwash [place] Flagyl 500 mg, 100 No Longer [place] Start date: Active 2019 Medical 12/24/18 [place] 18:39:00 CDT, Duration: 30 day, Stop date: 01/23/19 18:38:00 CDT, 0 Zofran Notes: No Longer [place] MEDICATION Active 2018 Medical WASTE Center Product Size: 4 mg Product Wasted: ___ mg Fentanyl 1,000 No Longer [place] microgram, 20 Active 2018 Medical mL, Rate: Center Titrate, Start Dose: 50 microgram/hr, Titration: 25 microgram/hour every 15 minutes, Goal(s): RASS 0, Max Dose: 300 microgram/hr, Route: IV, Dosing Weight 102.273 kg, Total Volume: 20, Start date: 12/24/18 18:39:00 CDT, D... Potassium Chloride Notes: (Same No Longer [place] as: KCL) 2018 Medical Infuse no Center [...] from TPN. potassium Notes: (Same No Longer [facility] phosphate as: K Active 2018 [facility] Phosphate.) Center Do not infuse phosphorous concurrently in the same line as TPN or IVF that contains calcium. For double lumen central lines, phosphorous may be infused in a separate lumen from TPN. 1 mMol phoshate has 1.47 mEq potassium Infuse over 4 hours potassium Notes: (Same No Longer [facility] phosphate-sodium as: Phos-NaK) 2018 edical phosphate 250 Each 1.5 gm Center mg-280 mg-160 mg pkt has 250mg oral powder for phosphorous. reconstitution Mix w/2.5oz water and stir. Magnesium Sulfate Notes: WASTE: No Longer [facility] F/P - Sink; E Active 2018 [facility] Trash Bin Magnesium Oxide Notes: (Same No Longer [facility] as: Mag-Ox Active 2018 [facility] 400) Magnesium Center oxide [id number] elemental magnesium Dose=____mg magnesium oxide (___mg elemental magnesium) Calcium Gluconate Notes: WASTE: No Longer [facility] F/P - Sink; E Active 2019 [facility] Trash Bin Calcium Carbonate Notes: (Same No Longer [place] 500 MG Chewable As: Tums) Active 2018 [...] [facility] IM, Drug form: Active 2018 [facility] PDR/INJ, PRN, Center Dosing Weight 102.273, kg, PRN Blood Glucose Results, Start date: 12/24/18 18:37:00 CDT, Duration: 30 day, Stop date: 01/23/19 18:36:00 CDT, 0 chlorhexidine Notes: (Same No Longer [facility] gluconate 1.2 As: Peridex) Active 2018 Medic al MG/ML Mouthwash Center Insulin regular Notes: Roll in No Longer [place] palms of hands Active 2019 Medical gently; [...] 1,000 mL as: Isolyte S Active 2019 [facility] PH 7.4) Center Ibuprofen Notes: [...] Inactive [place] as Syringe mL, Route: 2019 [facility] IVP, Drug Center Form: INJ, Dosing Weight 91.818, kg, PRN, PRN Blood Glucose Results, Start date: 09/23/18 3:43:00 CDT, Duration: 30 day, Stop date: 10/23/18 3:42:00 CDT Arixtra Notes: (Same No Longer [place] as: Arixtra) Active 2019 Medical Center Famotidine Notes: (Same No Longer [place] as: Pepcid) Active 2019 Medical Center sennosides, NURSING HOME Notes: (Same No Longer H [place] 8.6 [...] Docusate Sodium 50 Notes: (Same No Longer [place] MG / sennosides, as Senokot-S) Active 2018 edical NURSING HOME 8.6 MG Oral Equiv. to [place] Tablet Cassidy-Colace. Levothroid 88 mcg 88 microgram = Active Dougie (0.088 mg) oral 1 tab, PO, 2019 Medic al tablet Daily, 0 Center Refill(s) rosuvastatin Notes: (Same No Longer [place] As: Crestor) Active 2019 [facility] Insulin Glargine 20 unit, 0.2 No Longer [place] 100 UNT/ML mL, Route: Active 2018 Medical Injectable SUB-Q, Drug Center Solution form: SOLN, Bedtime, Dosing Weight 91.818, kg, Start date: 09/21/18 21:00:00 CDT, Duration: 30 day, Stop date: 10/20/18 21:00:00 CDT Sertraline Notes: (Same No Longer [place] as: Zoloft) Active 2019 [facility] Pyridostigmine Notes: (Same No Longer [place] as: Mestinon) Active 2019 [facility] Dextrose 50% 25 gm, 50 mL, No Longer [place] Syringe Route: IVP, Active 2018 Medical Drug Form: Center INJ, Dosing Weight 91.818, kg, PRN, PRN Abnormal Lab Result, Start date: 09/21/18 18:24:00 CDT, Duration: 30 day, Stop date: 10/21/18 18:23:00 CDT Regular Insulin, Notes: (Same No Longer [place] Human 100 UNT/ML as: Humulin R) Active [...] See On Hold Dougie Therapy Instructions, 2019 Medical MISC, ONCALL, [place] Evaluate and Treat __3_ times per week for __4__ weeks, # 1 bag, 0 Refill(s) Physical Therapy See On Hold Sheldon s Instructions, 2018 [facility], [place] Evaluate and Treat _3__ times per week for __4__ weeks, # 1 bag, 0 Refill(s) Ramipril Notes: (Same Inactive [place] as:Altace) 2019 [facility] Center Furosemide 20 MG 20 [...] Medical 60 cap, 3 Center Refill(s) sennosides, NURSING HOME 8.6 mg = 1 On Hold [place] [...] Medical 30 cap, 1 Center Refill(s), Pharmacy: [facility]/pharmacy #[id number] metoprolol 25 mg = 1 tab, [...] 1 Center Refill(s), Pharmacy: [id number] sennosides, NURSING HOME 8.6 mg = 1 No Longer [place] 8.6 MG Oral Tablet tab, PO, BID, Active 2019 Medical # 60 tab, 0 Center Refill(s), Pharmacy: [facility]acy [facility][id number] pyridostigmine 60 60 mg = 1 tab, No Longer 09/17 [place] mg oral tablet PO, Q8Hnow, # Active 2019 Med ical 90 tab, 1 Center Refill(s), Pharmacy: [facility]/pharmacy #[id number] predniSONE 20 mg 60 mg = 3 tab, No Longer [place] oral tablet PO, Daily, # Active 2019 Medical 30 tab, 1 Center Refill(s), Pharmacy: [facility]/pharmacy #[id number] Insulin regular Notes: (Same No Longer [facility] as: Humulin R) Active 2019 Medical Roll in palms Center of hands gently; Do not shake vigorously. WASTE: F/P - Black; E - Municipal Trash Bin Stable for 31 days at room temperature Expires in days from Date Glucagon 1 mg, Route: No Longer [place] IM, Drug form: Active 2019 Medical PDR/INJ, PRN, Center Dosing Weight 91.378, kg, PRN Blood Glucose Results, Start date: 09/17/18 18:52:00 CDT, Duration: 30 day, Stop date: 10/17/18 18:51:00 CDT Dextrose 50% in 25 gm, 50 mL, No Longer [place] Water (bolus) IV Route: IVP, Active 2019 Med ical Drug Form: Center INJ, Dosing Weight 91.378, kg, PRN, PRN Blood Glucose Results, Start date: 09/17/18 18:52:00 CDT, Duration: 30 day, Stop date: 10/17/18 18:51:00 CDT Melatonin 0.25 1 mg, Route: Inactive [place] mg/mL oral liquid PO, Dosing 2019 Med ical Weight 91.378, Center kg, Bedtime, Start date: 09/16/18 21:00:00 CDT, Duration: 30 day, Stop date: 10/15/18 21:00:00 CDT insulin, isophane Notes: (Same No Longer [place] as: Humulin N) Active 2019 Medical Roll in palms Center of hands gently; Do not shake vigorously. WASTE: F/P - Black; E - Municipal Trash Bin Stable for 31 days at room temperature Expires in days from Date Amlodipine Notes: (Same No Longer [place] as: Norvasc) Active 2019 Medical Center melatonin 1 mg/mL 1 mg, 1 mL, Inactive H [place] oral solution Route: PO, 2019 Medical Drug [...] Medical capsule (Do Not Crush) Center sennosides, NURSING HOME Notes: (Same No Longer [place] as: Senokot) Active 2019 [facility] Center insulin, isophane Notes: (Same [...] [place] Syringe mL, Route: Active 2018 [facility] IVP, Drug Center Form: INJ, [...] [place] MG/ML / as: Duoneb) Active 2019 [facility] Ipratropium Center [place] 0.167 MG/ML Inhalant Solution [DuoNeb] Potassium Chloride Notes: (Same Inactive [place] 1.33 MEQ/ML Oral as: Potassium 2018 edical Solution Chloride) Center Sertraline Notes: (Same No Longer [place] as: Zoloft) Active 2019 [facility] Immunoglobulin G 25 gm, Route: No Longer [place] IV, Q24H, Active 2019 [facility] Dosing Weight Center 91.378, kg, Start date: 09/13/18 21:00:00 CDT, Duration: 1 day, Stop date: 09/13/18 21:00:00 CDT, Indication: Myasthenia gravis metoprolol Notes: (Same No Longer [place] as tartrate as: Lopressor) Active 2019 [facility] Gamunex-C 25 gm + Notes: WASTE: Inactive [place] empty container 1 F/P - Red; E 2019 M edical bag -Red Lot Center # ____Mfg: (Gamunex - C) "blood product derivative" iodixanol 100 mL, Route: Inactive [place] as IVP, Drug 2019 Medical Form: SOLN, [place] Dosing Weight 91.378, kg, ONCALL, STAT, Start date: 09/13/18 11:50:00 CDT, Duration: 1 doses or times, Dose = 2.2ml/kg, Max dose = 100ml -- "To be infused by Radiology Staff ONLY" Prednisone Notes: Take No Longer [place] with food. Active 2019 Medical [place] pantoprazole Notes: For IV No Longer [place]ie push Active 2019 [facility] reconstitute Center with 10 ml 0.9% sodium chloride and push over 2 minutes. (Same as: Protonix) chlorhexidine Notes: (Same No Longer [place] gluconate 1.2 As: Peridex) Active 2018 Medic al MG/ML Mouthwash Center Norepinephrine Notes: Not for Inactive [place] direct 2019 Medical administration Center - DILUTE. Protect from light. (Same as:Levophed). Administer by either central venous catheter or peripherally-i nserted central catheter (PICC) line. propofol 10 mg/mL Notes: If No Longer [place] (Titrate.) IV Diprivan - Active 2018 Medical 1,000 mg change bottle Center & tubing every 12 hr Per state nursing law propofol can only be given by a nurse if patient is intubated or being intubated (unless the nurse is a CHIEF ENTERPRISE ARCHITECT). Same as: Diprivan Rocuronium Notes: ([facility]: Zemeron) 2019 Medical Center Fentanyl Notes: (Same Inactive [place] as: Sublimaze) 2019 [facility] Preservative Center free. Propofol Notes: If Inactive [place] Diprivan - 2019 Medical change bottle Center & tubing every 12 hr Per state nursing law propofol can only be given by a nurse if patient is intubated or being intubated (unless the nurse is a CHIEF ENTERPRISE ARCHITECT). Same as: Diprivan ocular lubricant Notes: (Same No Longer [place] as: Active 2018 Medical Lacri-Lube, Center Puralube, Duratears Naturale, Artificial Tears, and Tears Again ) normal saline 0.9% 1,000 mL, No Longer [place] IV 1,000 mL Rate: 75 Active 2019 Medical ml/hr, Infuse Center over: 13.3 hr, Route: IV, Dosing Weight 91.378 kg, Total Volume: 1,000, Start date: 09/13/18 5:43:00 CDT, Duration: 30 day, Stop date: 10/13/18 5:42:00 CDT, 1.99, m2 chlorhexidine Notes: (Same No Longer [place] gluconate 1.2 As: Peridex) Active 2018 Medic al MG/ML Mouthwash Center Insulin regular Notes: Final No Longer [place] 100 unit + Concentration Active 2019 Medical 1unit/1ml Center WASTE: F/P - Black; E - Municipal Trash Bin Dextrose 50% 6.25 gm, 12.5 No Longer [place] Syringe mL, Route: Active 2019 Medical IVP, Drug Center Form: INJ, Dosing Weight 91.378, kg, PRN, PRN Abnormal Lab Result, Start date: 09/13/18 1:52:00 CDT, Duration: 30 day, Stop date: 10/13/18 1:51:00 CDT Adult Parenteral Notes: Must No Longer [facility] Nutrition Custom - use 1.2 micron Active 2019 Medical Peripheral (PPN filter AND Cente r not TPN) 2,040 mL Lipids should not be administered to patients who are allergic to soy, fish, egg or peanuts. Immunoglobulin G 50 gm, Route: Inactive [place] IV, Q24H, 2019 Medical Dosing Weight Center 91.378, kg, Start date: 09/12/18 21:00:00 CDT, Duration: 1 day, Stop date: 09/12/18 21:00:00 CDT, Indication: Myasthenia gravis Gamunex-C 75 gm + Route: IVPB, Inactive [place] empty container 1 Drug form: 2019 Med ical bag SOLN, Bedtime, Center Start date: 09/12/18 21:00:00 CDT, Duration: 1 doses or times, Stop date: 09/12/18 21:00:00 CDT, Indication: Myasthenia gravis Gamunex-C 50 gm + Notes: WASTE: Inactive [place] empty container 1 F/P - Red; E 2019 M edical bag -Red Lot Center # ____Mfg: (Gamunex - C) Non-Formulary "blood product derivative" Pyridostigmine Notes: (Same No Longer [place] as: Mestinon) Active 2019 [facility] Calcium Carbonate Notes: (Same No Longer [place] 500 MG Chewable As: Tums) Active 2019 Medica l Tablet Calcium Center Carbonate 500 mg = 200 mg elemental calcium Dose = mg calcium carbonate ( mg elemental calcium) Calcium Gluconate Notes: WASTE: No Longer [place] F/P - Sink; E Active 2018 [facility] Trash Bin Magnesium Oxide Notes: (Same No Longer 09/12/ H [place] as: Mag-Ox Active 2018 Medical 400) Magnesium Center oxide [id number] elemental magnesium Dose=____mg magnesium oxide (___mg elemental magnesium) Magnesium Sulfate Notes: WASTE: No Longer [place] F/P - Sink; E Active 2018 [facility] Trash Bin potassium Notes: ([facility] Long[facility] phosphate-sodium as: K-Phos Active 2018 [facility] roger phosphate 250 Neutral, [place] mg-280 mg-160 mg Phospha 250 oral powder for Neutral) reconstitution Potassium Chloride Notes: (Same No Longer [place] as: K-Dur 20) Active 2018 [facility] "Do Not Crush" Center Give [...] patients. sodium phosphate Notes: Infuse No Longer [place] over 4 hour. Active 2018 [facility] Do not infuse Center phosphorous concurrently in the same line as TPN or IVF that contains calcium. For double lumen central lines, phosphorous may be infused in a separate lumen from TPN. potassium Notes: (Same No Longer [facility] s phosphate as: K Active 2018 Medical Phosphate.) [place] Do not infuse phosphorous concurrently in the same line as TPN or IVF that contains calcium. For double lumen central lines, phosphorous may be infused in a separate lumen from TPN. 1 mMol phoshate has 1.47 mEq potassium Infuse over 4 hours benzocaine topical Notes: (Same No Longer [place] gel As: Maximum Active 2018 Medical Strength [facility] Orajel ) Immunoglobulin G 75 gm, Route: Inactive Dougie IV, Drug form: 2019 Medical INJ, Q24H, [place] Dosing Weight 91.378, kg, Start date: 09/12/18 12:00:00 CDT, Duration: 1 doses or times, Stop date: 09/12/18 12:00:00 CDT, Indication: Myasthenia gravis Magnesium Sulfate Notes: WASTE: Inactive [place] F/P - Sink; E 2018 [facility] Tra Bin Calcium Gluconate Notes: WASTE: Inactive [place] F/P - Sink; E 2019 [facility] Tra Bin Pyridostigmine Notes: (Same No Longer [place] as: Mestinon) Active 2019 [facility] Bacitracin 1 appl, Route: No Longer [place] RIGHT EYE, Active 2019 [facility] Q4H, Drug Center form: OINT, [...] [place] Longer [place] as: Active 2019 [facility] Apresoline) Center metoprolol Notes: (Same No Longer [place] as extended release as: Toprol XL) Active 2019 [facility] split Center tab, but do not crush. Ramipril Notes: (Same No Longer [place] as:Altace) Active 2019 Medical Center fondaparinux Notes: (Same No Longer [place] as: Arixtra) Active 2019 Medical Center Amlodipine Notes: (Same No Longer [place] as as: Norvasc) Active 2019 Medical [place] Hydrochlorothiazid Notes: (Same Inactive [place] e as: 2019 Medical Hydrodiuril) Center With food. Docusate Sodium 50 Notes: (Same No Longer [place] MG / sennosides, as Senokot-S) Active 2019 edical NURSING HOME 8.6 MG Oral Equiv. to Center Tablet Cassidy-Colace. Furosemide 20 MG Notes: (Same No Longer [facility] Oral Tablet as: Lasix) Active 2019 Medical May cause GI Center upset. Give with food or milk. Gamunex-C 25 gm + Notes: For No Longer H [place] empty container 1 adults: use Active 2018 Ri dical bag IBW of XX used Center for XX mg/kg per protocol WASTE: F/P - Red; E -Red Lot # ____Mfg: (Gamunex - C) "blood product derivative" rosuvastatin Notes: (Same Inactive [place] As: Crestor) 2019 Medical [place] heparin sodium, Notes: porcine Inactive [facility] porcine 2500 heparin 2019 Medical UNT/ML Injectable Center Solution Lacri-Lube Notes: (Same No Longer [place] as as: Active 2019 Medical Lacri-Lube, Center Puralube, Duratears Naturale, Artificial Tears, and Tears Again ) Pyridostigmine Notes: (Same No Longer 09/10[facility] as: Mestinon) Active 2019 Medical [place] Saline Flush 0.9% Notes: (Same No Longer 09/10[facility] as: BD Active 2019 Medical Posiflush) Center Benadryl Notes: (Same No Longer [facility] as: Benadryl) Active 2019 Medical Center Solu-Medrol Notes: (Same No Longer [facility] [place]as as:Solu-MEDROL Active 2019 [facility] , A-Methapred) Center Zofran Notes: (Same No Longer [facility] as: Zofran) Active 2019 Medical MEDICATION Center WASTE Product Size: 4 mg Product Wasted: ___ mg Immunoglobulin G 36 gm, Route: Inactive [facility] IVPB, Drug 2019 Medical form: SOLN, [place] Daily, Dosing Weight 91.378, kg, Start date: 09/10/18 16:42:00 CDT, Duration: 5 day, Stop date: 09/15/18 9:00:00 CDT, Indication: Other see comments Insulin regular 60 units) No Longer [facility] WASTE: F/P - Active 2019 Medical Black; E - Center Municipal Trash Bin Stable for 28 days at room temperature Expires in days from Date Glucagon 1 mg, Route: No Longer [place] IM, Drug form: Active 2018 Medical PDR/INJ, [...] Saline Flush 0.9% Notes: (Same No Longer [place] as: BD Active 2018 [facility] Posiflush) [place] Dextrose 5% with 1,000 mL, No Longer [place] 0.9% NaCl IV 1,000 Rate: 75 Active 2019 Medi roger mL ml/hr, Infuse Center over: 13.3 hr, Route: IV, Dosing Weight 91.378 kg, Total Volume: 1,000, Start date: 09/10/18 0:20:00 CDT, Duration: 30 day, Stop date: 10/10/18 0:19:00 CDT, 1.99, m2 Streptococcus Notes: Shake No Longer [place] pneumoniae well prior to 2018 Medical serotype 1 use (Same as: [place] capsular antigen Prevnar 13) diphtheria [id number] protein conjugate vaccine / Streptococcus pneumoniae serotype 14 capsular antigen diphtheria [id number] protein conjugate vaccine / Streptococcus pneumoniae serotype 18C capsular antigen d insulin glargine Notes: (Same Inactive H as: Lanmadelynus) Do 2018 [facility] not hold [facility] insulin without contacting prescriber WASTE: F/P - Black; E - Municipal Trash Bin "single patient use only" Insulin Glargine 10 unit, On Hold 100 UNT/ML SUB-Q, 2019 [facility] Injectable Bedtime, 0 [facility] Solution Refill(s) Bacitracin 0.5 1 appl, Route: Inactive H UNT/MG Ophthalmic RIGHT EYE, 2019 [facility] orial Ointment TID, Drug [facility] form: OINT, Start date: 09/09/18 9:00:00 CDT, Duration: 30 day, Stop date: 10/08/18 17:00:00 CDT D5W 1/2NS 1,000 mL 1,000 mL, Inactive Rate: 75 2019 [facility] ml/hr, Infuse [facility] over: 13.3 hr, Route: IV, Dosing Weight 94.3 kg, Total Volume: 1,000, Start date: 09/09/18 7:53:00 CDT, Duration: 30 day, Stop date: 10/09/18 7:52:00 CDT, 2.02, m2 Acyclovir Notes: No Longer MEDICATION Active 2018 [facility] WASTE [facility] Product Size: 500 mg Product Wasted: _0__ mg 0.5 ML dulaglutide SUB-Q, every On Hold 3 MG/ML Prefilled Thursday, 2018 [place] rial Syringe Refill(s) [facility] [Trulicity] Insulin Glargine 20 unit, On Hold 100 UNT/ML SUB-Q, 2019 [facility] Injectable Bedtime, # 3 [facility] Solution mL, 3 Refill(s) heparin Notes: porcine No Longer heparin Active 2018 [facility] Dextrose 50% 12.5 gm, 25 No Longer Syringe mL, Route: Active 2018 [facility] IVP, Drug [facility] Form: INJ, Dosing Weight 94.3, kg, PRN, PRN Blood Glucose Results, Start date: 09/08/18 9:49:00 CDT, Duration: 30 day, Stop date: 10/08/18 9:48:00 CDT Glucagon 1 mg, Route: No Longer IM, Drug form: Active 2019 [facility] PDR/INJ, PRN, City Dosing Weight 94.3, kg, [...] Medical 90 tab, 3 Center Refill(s), Pharmacy: [facility] [id number] rosuvastatin 10 mg 20 mg = 2 [...] 20 MG Notes: (Same Inactive 08/19/ H [place] Oral Tablet as: Lasix) 2019 Medical May [...] Center insulin glargine Notes: Same No Longer [facility] as: Lantus) Do Active 2019 [facility] Center insulin without contacting prescriber WASTE: F/P - Black; E - Municipal Trash Bin Ramipril Notes: (Same No Longer [place] as:Altace) Active 2019 Medical Center Amlodipine Notes: (Same No Longer [place] as as: Norvasc) Active 2019 Medical Center loperamide Notes: Same as Inactive [place] Imodium 2019 [facility] Imodium A-D EZ 2 mg, Route: Inactive [facility] Chews CHEW, Dosing 2019 Medical Weight 111.6, Center kg, BID, PRN as needed for loose stool, Start date: 08/17/18 13:34:00 CDT, Duration: 30 day, Stop date: 09/16/18 13:33:00 CDT Plavix Notes: (Same No Longer [facility] As: Plavix) Active 2019 Medical [place] benzonatate Notes: (Same [place] Long[place] As: Tessalon Active 2019 [facility] Perles) "Do Center Not Crush" [...] Water (bolus) IV mL, Route: Active 2018 [facility] IVP, Drug Center Form: INJ, Dosing Weight 113.636, kg, PRN, PRN Blood Glucose Results, Start date: 08/17/18 2:18:00 CDT, Duration: 30 day, Stop date: 09/16/18 2:17:00 CDT Glucagon 1 mg, Route: No Longer [facility] IM, Drug form: Active 2018 [facility] PDR/INJ, PRN, Center Dosing Weight 113.636, kg, PRN Blood Glucose Results, Start date: 08/17/18 2:18:00 CDT, Duration: 30 day, Stop date: 09/16/18 2:17:00 CDT Bisacodyl Notes: ([facility] As: Dulcolax, Active 2018 [facility] [place]isco-Lax) [place] Labetalol 20 mg, 4 mL, No Longer [place] alexis Route: IVP, Active 2018 Medical Drug form: [place] INJ, Q10Min, Dosing Weight 113.636, kg, PRN Hypertension, Start date: 08/16/18 23:38:00 CDT, Duration: 30 day, Stop date: 09/15/18 23:37:00 CDT iodixanol 60 mL, Route: Inactive [facility] IVP, Drug 2018 Medical Form: SOLN, [place] Dosing Weight 113.636, kg, ONCALL, STAT, Start [...] Route: IV, Active 2010 Medical Drug form: [place] INJ, Q4H, PRN Elevated BP, Start date: 03/24/11 18:14:00, Duration: 30 day, Stop date: 04/23/11 18:13:00, Systolic Blood pressure greater than 160 mmHg magnesium sulfate 2 gm, 50 mL, IVPB No Longer Hernán [facility] Route: IVPB, Active 2010 Medical Drug form: [place] INJ, ONCE, Total dose = 2 gm, [...] Duration: 30 day, Stop date: 04/22/11 17:00:00 [place] Thyroid 120 mg, 2 tab, PO No Longer Hernán [facility] Route: PO, Active 2010 Medical Drug form: [place] TAB, Before Breakfast, Start date: 03/24/11 8:30:00, Duration: 30 day, Stop date: 04/23/11 7:30:00 potassium chloride 40 mEq, 2 tab, PO No Longer Hernán 03/02 [facility] Route: PO, Active 2010 Medical Drug form: [place] ERTAB, ONCE, Start date: 03/23/11 19:12:00, Stop date: 03/23/11 19:12:00 senna 8.6 mg oral 8.6 mg, 1 tab, PO No Longer Hernán 03/23 [facility] tablet Route: PO, Active 2010 Medical Drug Form: [place] TAB, Daily, Start date: 03/23/11 9:00:00, Duration: 30 day, Stop date: 04/21/11 9:00:00 diphenhydrAMINE 25 mg, 1 cap, PO No Longer Hernán [facility] Route: PO, Active 2010 Medical Drug form: Center CAP, Q6H, PRN Itching, Start date: 03/23/11 7:37:00, Duration: 30 day, Stop date: 04/22/11 7:36:00 [place] Thyroid 120 mg, 0.5 PO No Longer [...] Duration: 30 day, Stop date: 04/21/11 9:00:00 [place] 5/325 oral 1 tab, Route: PO No [...] Route: PO, Active 2010 Medical Drug form: [place] TAB, BID, Start date: 03/22/11 17:00:00, Duration: 30 day, Stop date: 04/21/11 9:00:00 metoprolol 12.5 mg, 1 ea, PO No Longer Hernán [place] Route: PO, Active 2010 Medical Drug form: [place] TAB, BID, Start date: 03/22/11 17:00:00, Duration: 30 day, Stop date: 04/21/11 9:00:00 docusate sodium 100 mg, 1 cap, PO No Longer Hernán [place] 100 mg oral Route: PO, Active 2010 Medical capsule Drug form: [place] CAP, BID, Start date: 03/22/11 17:00:00, Duration: [...] Route: IVP, Active 2010 Medical Drug Form: [place] INJ, PRN, PRN Blood Glucose Results, Start date: 03/22/11 16:28:00, Duration: 30 day, Stop date: 04/21/11 15:27:00 glucagon 1 mg, Route: IM No Longer Hernán Dougie IM, Drug form: Active 2010 Medical PDR/INJ, PRN, [place] PRN Blood Glucose Results, Priority: STAT, Start date: 03/22/11 16:28:00, Duration: 30 day, Stop date: 04/21/11 15:27:00 calcium carbonate 500 mg, 1 tab, PO No Longer Hernán 03/22 Dougie Route: PO, Active 2010 Medical Drug form: [place] CHEWTAB, TID, PRN as needed for indigestion, Start date: 03/22/11 16:19:00, Duration: 30 day, Stop date: 04/21/11 16:18:00 ondansetron 4 mg, 2 mL, IVP No Longer [place] Osman as Route: IVP, Active 2010 Medical Drug form: [place] INJ, ONCE, Priority: STAT, Start date: 03/22/11 10:12:00, Stop date: 03/22/11 10:12:00 morphine Sulfate 4 mg, 1 mL, IVP No Longer [place] 03/22[facility] Route: IVP, Active 2010 Medical Drug form: [place] INJ, ONCE, Priority: STAT, Start date: 03/22/11 10:11:00, Stop date: 03/22/11 10:11:00 magnesium oxide 400 mg, 1 tab, PO Active Marlonimileyad Dougie 400 mg oral tablet PO, BID, 2010 Me dical tab, Center Substitution Allowed Benadryl 25 mg, 1 cap, PO No Longer Neymar Osmana s Route: PO, Active 2010 Medical Drug form: [place] CAP, Q4H, PRN Itching, Start date: 03/15/11 6:21:00, Duration: 30 day, Stop date: 04/14/11 6:20:00 trazodone 50 mg 50 mg, 1 tab, PO No Longer Marlonimileyad [place]ie oral tablet Route: PO, Active 2010 Medical Drug form: [place] TAB, Bedtime, Start date: 03/14/11 21:00:00, Duration: 30 day, Stop date: 04/12/11 21:00:00 NS 1,000 mL 1,000 mL, IV No Longer Alikhan Dougie Rate: 75 Active 2010 Medical ml/hr, Infuse [place] over: 13.3 hr, Route: IV, Total Volume: [...] 500 mg, 1 tab, PO No Longer [place] Dougie tablet Route: PO, Active 2010 Medical [...] 100 mg, 1 cap, PO No Longer [place] 03/14/ [place] 100 mg oral Route: PO, Active 2010 Medical capsule Drug form: Center CAP, BID, Start date: 03/14/11 9:00:00, Duration: 30 day, Stop date: 04/12/11 17:00:00 calcium carbonate 500 mg, 1 tab, PO No Longer Ash 10 4/ [facility] Route: PO, Active 2010 Medical Drug form: [place] CHEWTAB, TID, Start date: 03/14/11 9:00:00, Duration: 30 day, Stop date: 04/12/11 17:00:00 heparin 5,000 unit, 1 SUB-Q [place] Longer [place] mL, Route: Active 2010 Medical SUB-Q, Drug Center form: INJ, Q8H, Start date: 03/14/11 8:00:00, Duration: 30 day, Stop date: 04/13/11 0:00:00 ciprofloxacin 750 mg, 3 tab, PO No Longer [place] [facility] Route: PO, Active 2010 Medical Drug form: [place] TAB, [id number], Start date: 03/14/11 7:00:00, Duration: 30 day, Stop date: 04/12/11 19:00:00 cefepime 2 gm, Route: IV No Longer [facility], Drug form: Active 2010 Medical INJ, [id number], Center Start date: 03/14/11 7:00:00, Duration: 30 day, Stop date: 04/12/11 23:00:00 [place] Thyroid 120 mg, 2 tab, PO No Longer [place] [facility] Route: PO, Active 2010 Medical Drug form: [place] TAB, [id number], Start date: 03/14/11 6:45:00, Duration: 30 day, Stop date: 04/13/11 6:30:00 glucagon 1 mg, Route: [place] Longer [place] IM, Drug form: Active 2010 Medical PDR/INJ, PRN, Center PRN Blood Glucose Results, Priority: STAT, Start date: 03/14/11 6:06:00, Duration: 30 day, Stop date: 04/13/11 5:05:00 Dextrose 50% 25 gm, 50 mL, IVP No Longer [place] [facility] Syringe Route: IVP, Active 2010 Medical Drug Form: Center INJ, PRN, PRN Blood Glucose Results, Start date: 03/14/11 6:06:00, Duration: 30 day, Stop date: 04/13/11 5:05:00 insulin aspart 4 unit, 0.04 SUB-Q No Longer [place] [facility] [place] mL, Route: Active 2010 Medical SUB-Q, Drug Center form: SOLN, TID-Before Meals, PRN Blood Glucose Results, Start date: 03/14/11 6:06:00, Duration: 30 day, Stop date: 04/13/11 6:05:00 [place] 5/325 oral 1 tab, Route: PO No Longer Ash [facility] tablet PO, Drug Form: Active 2010 Medical TAB, Q4H, PRN Center as needed for pain, Start date: 03/14/11 6:02:00, Duration: 30 day, Stop date: 04/13/11 6:01:00 magnesium sulfate 2 gm, 50 mL, IVPB No Longer [place] Route: IVPB, Active 2010 Medical Drug form: Center INJ, ONCE, Total dose = 2 gm, Start date: 03/14/11 6:01:00, Duration: 1 doses or times, Stop date: 03/14/11 6:01:00 Sodium Chloride 1,000 mL, IV No Longer [place] 0.9% (Bolus) IV Rate: 1,000 Active 2010 [facility] 1,000 mL ml/hr, Infuse Center over: 1 [...] 0.9% (Bolus) IV Rate: 1,000 Active 2010 [facility] roger 1,000 mL ml/hr, Infuse [place] over: 1 hr, Route: IV, Total Volume: 1,000, [place] Dose, Priority: STAT, Start date: 03/13/11 23:20:00, Duration: 1 doses or times, Stop date: 03/14/11 0:19:00 morphine Sulfate 4 mg, 1 mL, IVP No Longer [facility] Route: IVP, Active 2010 Medical Drug form: [place] INJ, ONCE, Priority: STAT, Start date: 03/13/11 22:47:00, Stop date: 03/13/11 22:47:00 Lasix Substitution No Longer [place] Allowed Active 2010 [facility] metFORmin Substitution [place]er [place] Allowed Active 2010 [facility] metoprolol 12.5 mg, 1 ea, PO No Longer [place] Route: PO, Active 2010 Medical Drug form: [place] TAB, BID, Start date: 03/06/11 20:00:00, Duration: 30 day, Stop date: 04/05/11 8:00:00 metoprolol 25 mg 12.5 mg, 0.5 PO Active Riz[place] oral tablet ea, PO, BID, 2010 Medical 60 tab, Center Substitution Allowed, TAB trazodone 50 mg 50 mg, 1 tab, PO Active Riz[place] oral tablet PO, Bedtime, 2010 Medical 40 tab, Center Substitution Allowed, TAB [place] 5/325 oral 1 tab, PO, PO Active [place] tablet Q4H, PRN, 40 2010 Medical tab, Pain, Center Substitution Allowed, Maintenance, TAB Novolin N 100 10 unit, SUB-Q Active Riz[place] units/mL SUB-Q, BID, 10 2010 Medical subcutaneous ml, [place] injection Substitution Allowed, SUSP [place] Thyroid 60 120 mg, 2 tab, PO Active Rizvi [place] mg oral tablet PO, Before 2010 Medica l Breakfast, 60 [place] tab, Substitution Allowed, TAB Keppra 500 mg [...] sodium 100 mg, 1 cap, PO Active [place] [facility] [place] 100 mg oral PO, BID, 30 2010 Medical capsule cap, Center Substitution Allowed, CAP ciprofloxacin 250 750 mg, 3 tab, PO Active [place] mg oral tablet PO, Q12H, 40 2010 Medi roger doses or Center times, Substitution Allowed, TAB Maxipime 2 g 2 gm, IV, Q8H, IV Active [place] injection 60 doses or 2010 Medical times, Center Substitution Allowed calcium carbonate 500 mg, 1 tab, PO Active [place] 500 mg oral PO, TID, PRN, 2010 Medica l tablet, chewable 30 tab, as Cent er needed for indigestion, Substitution Allowed, CHEWTAB Lasix 10 mg, 0.5 PO No Longer Aaron [facility] tab, Route: Active 2010 Medical PO, Drug form: [place] TAB, Daily, Start date: 03/06/11 8:00:00, Duration: 30 day, Stop date: 04/04/11 8:00:00 Norvasc 5 mg, Route: PO No Longer [place] [facility] PO, Daily, Active 2010 Medical Start date: [place] 03/02/11 8:00:00, Duration: 30 day, Stop date: 03/31/11 8:00:00 trazodone 50 mg 50 mg, 1 tab, PO No Longer [place] [facility] oral tablet Route: PO, Active 2010 Medical Drug form: [place] TAB, Bedtime, Start date: 02/27/11 21:00:00, Duration: 30 day, Stop date: 03/28/11 21:00:00 calcium carbonate 500 mg, 1 tab, PO No Longer Zeider 02/27 [facility] Route: PO, Active 2010 Medical Drug form: [place] TAB, TID, Start date: 02/27/11 8:00:00, Duration: [...] date: 02/27/11 8:00:00, Stop date: 03/28/11 8:00:00 [place] Thyroid 120 mg, 2 tab, PO No Longer Ze[place] [facility] Route: PO, Active 2010 Medical Drug form: Center TAB, Before Breakfast, Start date: 02/27/11 6:30:00, Duration: 30 day, Stop date: 03/28/11 6:30:00 Insulin regular 5 unit, 0.05 SUB-Q No Longer [place] [facility] mL, Route: Active 2010 Medical SUB-Q, Drug [...] mg, 3 tab, PO No Longer [place] [facility] Route: PO, Active 2010 Medical Drug form: [...] mg, 1 tab, PO No Longer [place] [facility] Route: PO, Active 2010 Medical Drug form: [place] TAB, Q12H, Start date: 02/26/11 21:00:00, Duration: [...] PO, Active 2010 Medical capsule Drug form: [place] CAP, BID, Start date: 02/26/11 20:00:00, Duration: [...] Route: IVP, Active 2010 Medical Drug form: [place] INJ, ONCE, PRN Nausea & Vomiting, Start date: 02/26/11 17:39:00 Saline Flush 0.9% 5 ml, Route: IVP No Longer [place]ider [place] IVP, Drug Active 2010 Medical Form: INJ, Center PRN, PRN Line Flush, Start date: 02/26/11 17:39:00, Duration: 30 day, Stop date: 03/28/11 17:38:00 calcium carbonate 500 mg, 1 tab, CHEW No Longer Zeider 02/26 [place] Route: CHEW, Active 2010 Medical Drug form: [place] CHEWTAB, TID, PRN Indigestion, Start date: 02/26/11 17:39:00, Duration: 30 day, Stop date: 03/28/11 17:38:00 [place] 5/325 oral 1 tab, Route: PO No Longer Zeider [facility] tablet PO, Drug Form: Active 2010 Medical TAB, Q4H, PRN Center Pain, Start date: 02/26/11 17:39:00, Duration: 30 day, Stop date: 03/28/11 17:38:00 acetaminophen 650 mg, 20.3 PO No Longer Zeider [place] mL, Route: PO, Active 2010 Medical Drug form: [place] LIQ, Q4H, PRN Fever, Start date: 02/26/11 17:39:00, Duration: 30 day, Stop date: 03/28/11 17:38:00 [place] 7.5/325 oral 1 tab, Route: PO No Longer Zeider 02/26 [facility] tablet PO, Drug Form: Active 2010 Medical TAB, Q4H, PRN Center Pain, Start date: 02/26/11 17:39:00, Duration: 30 day, Stop date: 03/28/11 17:38:00 Insulin regular 2 unit, 0.02 SUB-Q No Longer [place] mL, Route: Active 2010 Medical SUB-Q, Drug Center form: SOLN, TID-Before Meals, PRN Blood Glucose Results, Start date: 02/26/11 17:39:00, Duration: 30 day, Stop date: 03/28/11 17:38:00 [place] Thyroid 60 120 mg, 2 tab, PO Active [place] 02/26/ [place] mg oral tablet PO, Before 2010 Medica l Breakfast, 30 Center tab, Substitution Allowed, TAB senna 8.6 mg oral 8.6 mg, 1 tab, PO Active [place] tablet PO, Daily, 2010 Medical tab, Center Substitution Allowed, Maintenance, TAB Crestor 10 mg oral 20 mg, 2 tab, PO Active [place] tablet PO, Daily, 30 2010 Medical [...] mg 25 mg, 1 tab, PO Active [place] oral tablet PO, Q8H, 30 2010 Medical tab, Center Substitution Allowed, TAB heparin 5000 5000 units, SUB-Q Active [place] units/mL SUB-Q, Q8H, 30 2010 Medical injectable doses or Center solution times, Substitution Allowed, SOLN Lasix 40 mg oral 40 mg, 1 tab, PO Active [place] 02/26/ M [facility] [place] tablet PO, Daily, 2010 Medical tab, Center Substitution Allowed, TAB docusate sodium 100 mg, 1 cap, PO Active [place] 02/26/ M [facility] [place] 100 mg oral PO, BID, 30 2010 Medical capsule cap, Center Substitution Allowed, CAP ciprofloxacin 250 750 mg, 3 tab, PO Active [place] 02/26/ [place] mg oral tablet PO, Q12H, 30 2010 Medi roger doses or Center times, Substitution Allowed, TAB Maxipime 2 g 2 gm, IV, Q8H, IV Active [place] injection 1 doses or 2010 [...] 0.03 SUB-Q No Longer Aaron [facility] [place] mL, Route: Active 2010 Medical SUB-Q, Drug Center form: SOLN, TID-Before Meals, Start date: 02/23/11 16:30:00, Duration: 30 day, Stop date: 03/25/11 11:30:00 ciprofloxacin 750 mg, 3 tab, PO No Longer [place] [facility] [place] Route: PO, Active 2010 Medical Drug form: [...] Duration: 30 day, Stop date: 03/22/11 8:00:00 [place] 7.5/325 oral 1 tab, Route: PO No [...] Route: PO, Active 2010 Medical Drug Form: [place] TAB, Daily, Start date: 02/20/11 9:00:00, Duration: 30 day, Stop date: 03/21/11 9:00:00 [place] Thyroid 120 mg, 2 tab, PO No Longer Christopher [facility] Route: PO, Active 2010 Medical Drug form: [place] TAB, Before Breakfast, Start date: 02/20/11 7:30:00, Duration: 30 day, Stop date: 03/21/11 7:30:00 vancomycin 1 gm, Route: IVPB No Longer Christianson Osman as IVPB, Drug Active 2010 Medical form: INJ, [place] [id number], Priority: NOW, Start date: 02/20/11 6:44:00, Duration: 30 day, Stop date: 03/21/11 22:44:00 magnesium sulfate 2 gm, 50 mL, IVPB No Longer [place] [facility] Route: IVPB, Active 2010 Medical Drug form: [place] INJ, Q2H, Start date: 02/20/11 5:00:00, Duration: [...] Route: IVPB, Active 2010 Medical Drug form: [place] INJ, ONCE, Start date: 02/20/11 4:00:00, Stop date: 02/20/11 4:00:00 labetalol 5 mg, 1 mL, IV No Longer [facility] Route: IV, Active 2010 Medical Drug form: [place] INJ, Q10Min, PRN Hypertension, Start date: 02/20/11 1:56:00, Duration: 30 day, Stop date: 03/22/11 1:55:00 NS 500 mL 500 mL, Rate: IV No Longer [facility] Osman as 1,000 ml/hr, Active 2010 Medical Infuse over: [place] 0.5 hr, Route: IV, Total Volume: 500, Start date: 02/19/11 22:07:00, Duration: 1 doses or times, Stop date: 02/19/11 22:36:00, [place]us DoseBolus Dose calcium chloride 1,000 mg, 10 IV No Longer [facility] mL, Route: IV, Active 2010 Medical Drug form: [place] INJ, ONCE, Start date: 02/19/11 21:18:00, Stop date: 02/19/11 21:18:00 Tylenol 650 mg, 2 tab, PO No Longer Salazar Sheldon s Route: PO, Active 2010 Medical Drug form: [place] TAB, Q4H, PRN Fever, Start date: 02/19/11 21:13:00, Duration: 30 day, Stop date: 03/21/11 21:12:00 levetiracetam 500 mg, 1 tab, PO No Longer [facility] Route: PO, Active 2010 Medical Drug form: [place] TAB, Q12H, Start date: 02/19/11 21:00:00, Duration: 30 day, Stop date: 03/21/11 9:00:00 acetaminophen 650 mg, 20.3 PO No Longer [facility] Dougie mL, Route: PO, Active 2010 Medical Drug form: [place] LIQ, Q4H, PRN Fever, Start date: 02/19/11 [...] PO, Active 2010 Medical capsule Drug form: [place] CAP, BID, Start date: 02/19/11 17:00:00, Duration: 30 day, Stop date: 03/21/11 9:00:00 [place] 5/325 oral 1 tab, Route: PO No Longer [place] tablet PO, Drug Form: Active 2010 Medical TAB, Q4H, PRN [place] Pain, Start date: 02/19/11 16:14:00, Duration: 30 day, Stop date: 03/21/11 16:13:00 ciprofloxacin 400 mg, 200 IVPB No Longer [place] mL, Route: Active 2010 Medical IVPB, Drug Center form: INJ, [id number], Priority: NOW, Start date: 02/19/11 16:10:00, Duration: [...] regular 7 unit, 0.07 SUB-Q No Longer [place] [facility] human recombinant mL, Route: Active 2010 Med ical 100 units/mL SUB-Q, Drug Center injectable form: SOLN, solution PRN, PRN Abnormal Lab Result, Start date: 02/19/11 15:51:00, Duration: 30 day, Stop date: 03/21/11 15:50:00 Dextrose 50% 6.25 gm, 12.5 IVP No Longer [place] [facility] Syringe mL, Route: Active 2010 [facility] IVP, Drug Center Form: INJ, PRN, PRN Abnormal Lab Result, Start date: 02/19/11 15:51:00, Duration: 30 day, Stop date: 03/21/11 15:50:00 Saline Flush 0.9% 5 ml, Route: IVP No Longer [place] [facility] IVP, Drug Active 2010 Medical Form: INJ, Center PRN, PRN Line Flush, Start date: 02/19/11 15:51:00, Duration: 30 day, Stop date: 03/21/11 15:50:00 morphine Sulfate 2 mg, 1 mL, IVP No Longer [place] [facility] Route: IVP, Active 2010 Medical Drug form: Center INJ, Q1H, PRN Pain Score 7-10, Start date: 02/19/11 15:51:00, Duration: 30 day, Stop date: 03/21/11 15:50:00 flumazenil 0.2 mg, 2 mL, IVP No Longer [place] Route: IVP, Active 2010 Medical Drug form: Center INJ, PRN, PRN Other -See Comment, Initial dose, Start date: 02/19/11 14:18:00, Duration: 30 day, Stop date: 03/21/11 14:17:00 naloxone 0.04 mg, 0.1 IVP No Longer [place] mL, Route: Active 2010 Medical IVP, [...] Drug Active 2010 Medical form: INJ, Center [id number], Start date: 02/19/11 14:00:00, Duration: 30 day, Stop date: 03/21/11 2:00:00 ondansetron 2 4 mg, 2 mL, IVP Active [facility] Osman as mg/mL injectable IVP, Q8H, PRN, 2010 Medical solution 30 mL, Nausea Center & Vomiting, Substitution Allowed, SOLN Milk of Magnesia 1.2 gm, 5 mL, PO Active [place] [facility] 24% oral PO, Daily, 2010 Medical concentrate PRN, 150 mL, Center Constipation, Substitution Allowed, Maintenance, CONC Prinivil 10 mg 10 mg, 1 tab, PO Active [place] [facility] oral tablet PO, QPM, 30 2010 Medical tab, Center Substitution Allowed, TAB Keppra 500 mg oral 500 mg, 1 tab, PO Active Zesch[place] [facility] tablet PO, Q12H, 60 2010 Medical tab, Center Substitution Allowed, TAB Humulin N Pen 100 10 unit, SUB-Q Active [place] units/mL SUB-Q, BID, 3 2010 Medical subcutaneous ml, Center injection Substitution Allowed, SUSP Humulin N Pen 100 10 unit, SUB-Q Active [facility] [place] units/mL SUB-Q, BID, 3 2010 Medical subcutaneous ml, Center injection Substitution Allowed, SUSP hydrALAZINE 25 mg 25 mg, 1 tab, PO Active [facility] [place] oral tablet PO, BID, 60 2010 Medical tab, Center Substitution Allowed, TAB bisacodyl 10 mg 10 mg, 1 supp, [place] Active [facility] rectal suppository [place], Bedtime, 2010 Medical PRN, 30 supp, Center Constipation, Substitution Allowed, SUPP [place] 5/325 oral 1 tab, PO, PO Active [facility] [place] tablet Q4H, PRN, 30 2010 Medical tab, as needed Center for pain, Substitution Allowed, Maintenance, TAB [place] Thyroid 120 120 mg, 1 tab, PO Active [facility] [place] mg oral tablet PO, Daily, 30 2010 Med ical tab, Center Substitution Allowed, TAB Crestor 20 mg oral 20 mg, 1 tab, PO Active [facility] [place] tablet PO, Daily, 30 2010 Medical tab, Center Substitution Allowed, TAB metFORmin 500 mg 500 mg, 1 tab, PO Active [facility] oral tablet PO, Q8H, 90 2010 Medical tab, Center Substitution Allowed, TAB normal saline 0.9% 1,000 mL, IV No Longer [facility] IV 1,000 mL Rate: 100 Active 2010 Medical ml/hr, Infuse [place] over: 10 hr, Route: IV, Total Volume: 1,000, Start date: 02/18/11 11:29:00, Duration: 30 day, Stop date: 03/20/11 11:28:00 potassium 25 mEq, No Longer [place] bicarbonate 25 mEq Substitution Active 2010 Medical oral tablet, Allowed Center effervescent potassium chloride 40 mEq, 30 mL, PO No Longer Alik[place] 01/30 [facility] Route: PO, Active 2010 Medical Drug form: [place] LIQ, Daily, Start date: 02/12/11 11:00:00, Duration: 30 day, Stop date: 03/14/11 8:00:00 Kayexalate 15 gm, 60 mL, PO No Longer [place] Route: PO, Active 2010 Medical Drug form: [place] SUSP, ONCE, Start date: 02/11/11 21:17:00, Stop date: 02/11/11 21:17:00 Kayexalate 30 gm, 120 mL, PO No Longer [place] Route: PO, Active 2010 Medical Drug form: [place] SUSP, ONCE, Start date: 02/11/11 17:22:00, Stop date: 02/11/11 17:22:00 NS (Bolus) IV 1,000 mL, IV No Longer [place] Osman as 1,000 mL Rate: 1,000 Active 2010 Medical ml/hr, Infuse [place] over: 1 hr, Route: IV, Total Volume: 1,000, Priority: STAT, Start date: 02/11/11 8:37:00, Duration: 1 doses or times, Stop date: 02/11/11 9:36:00, [place]us DoseBolus Dose dexamethasone 1 mg, 1 tab, PO No Longer [place] [facility] Route: PO, Active 2010 Medical Drug form: [place] TAB, Daily, Start date: 02/11/11 8:00:00, Duration: 2 day, Stop date: 02/12/11 8:00:00 Fleet Enema 133 ml, Route: [place] No Longer [place] [facility] [place], Drug Form: Active 2010 Medical JEANNIE, ONCE, Center Start date: 02/10/11 14:15:00, Stop date: 02/10/11 14:15:00 bisacodyl 10 mg, 1 supp, [place] No Longer [place] Route: [place], Active 2010 Medical Drug form: [place] SUPP, ONCE, Start date: 02/10/11 14:15:00, Stop date: 02/10/11 14:15:00 dexamethasone 1 mg, 1 tab, PO No Longer [place] [facility] Route: PO, Active 2010 Medical Drug form: [place] TAB, BID, Start date: 02/09/11 8:00:00, Duration: 2 day, Stop date: 02/10/11 20:00:00 Xylocaine Jelly 2% 1 appl, Route: TOP No Longer [place] 01/30 [facility] topical gel with TOP, Q6H, Drug Active 2010 Medical applicator form: GEL PRN [place] Pain, Start date: 02/08/11 16:04:00, Duration: 30 [...] 2 mg, 1 tab, [facility] Route: PO, [...] 40 mEq, 2 tab, PO No Longer [place] 20 mEq oral Route: PO, Active [...] mg, 1.5 tab, PO No Longer [place] [facility] Route: PO, Active 2010 Medical Drug form: Center TAB, TID, Start date: 02/03/11 8:00:00, Duration: 2 day, Stop date: 02/04/11 17:00:00 insulin 15 unit, 0.15 SUB-Q No Longer Ash [facility] s isophane-NPH mL, Route: Active 2010 Medical SUB-Q, Drug Center form: INJ, Q24H, Start date: 02/03/11 0:00:00, Duration: 30 day, Stop date: 03/04/11 0:00:00 Keppra 500 mg, 1 tab, PO No Longer [place] [facility] Route: PO, Active 2010 Medical Drug form: Center TAB, Q12H, Start date: 02/02/11 21:00:00, Duration: 30 day, Stop date: 03/04/11 9:00:00 hydrALAZINE 25 mg 25 mg, 1 tab, PO No Longer [place] 02/01 [facility] oral tablet Route: [...] Route: PO, Active 2010 Medical Drug form: [place] TAB, Daily, Start date: 02/01/11 9:00:00, Duration: 30 day, Stop date: 03/02/11 9:00:00 Lasix 40 mg oral 80 mg, 2 tab, PO No Longer [place] [facility] tablet Route: PO, Active 2010 Medical Drug form: [place] TAB, Daily, Start date: 02/01/11 9:00:00, Duration: 30 day, Stop date: 03/02/11 9:00:00 atenolol 50 mg 50 mg, 1 tab, PO No Longer [place] [facility] oral tablet Route: PO, Active 2010 Medical Drug form: [place] TAB, Daily, Start date: 02/01/11 9:00:00, Duration: 30 day, Stop date: 03/02/11 9:00:00 [place] Thyroid 120 mg, 2 tab, PO No Longer Zeider [facility] Route: PO, Active 2010 Medical Drug form: Center TAB, Daily, Start date: 02/01/11 9:00:00, Duration: 30 day, Stop date: 03/02/11 9:00:00 dexamethasone 4 mg, 1 tab, PO No Longer Zeider [facility] Route: PO, Active 2010 Medical Drug form: [place] TAB, Q8H, Start date: 02/01/11 0:00:00, Duration: 2 day, Stop date: 02/02/11 16:00:00 Humulin N 20 unit, 0.2 SUB-Q No Longer [place] as mL, Route: Active 2010 Medical SUB-Q, Drug Center form: INJ, BID, Start date: 02/01/11 0:00:00, Stop date: 03/02/11 16:00:00 Keppra 100 mg/mL 500 mg, 5 mL, [place] No Longer Zeider [place] oral solution Route: [place], Active 2010 Medical Drug form: Center SOLN, Q12H, Start date: 01/31/11 21:00:00, Duration: 30 day, Stop date: 03/02/11 9:00:00 Insulin regular 1 unit, 0.01 SUB-Q No Longer [place] [facility] mL, Route: Active 2010 Medical SUB-Q, Drug [...] hours [place] Route: SUB-Q, SUB-Q No Longer [facility] Drug form: Active 2010 Medical INJ, BID, Center Start date: 01/31/11 17:00:00, Duration: 30 day, Stop date: 03/02/11 9:00:00 metFORmin 500 mg 500 mg, 1 tab, PO No Longer ider [facility] oral tablet Route: PO, Active 2010 Medical Drug form: Center TAB, Q8H, Start date: 01/31/11 16:00:00, Duration: 30 day, Stop date: 03/02/11 8:00:00 [place] 5/325 oral 1 tab, Route: PO No Longer [facility] tablet PO, Drug Form: Active 2010 Medical TAB, Q4H, PRN Center as needed for pain, Start date: 01/31/11 14:56:00, Duration: 30 day, Stop date: 03/02/11 14:55:00 bisacodyl 10 mg, Route: [place] No Longer [place], Drug form: Active 2010 Medical SUPP, Daily, Center PRN as needed for constipation, Start date: 01/31/11 14:56:00, Duration: 30 day, Stop date: 03/02/11 14:55:00 Keppra 100 mg/mL 500 mg, 5 mL, [place] On Hold [facility] oral solution [place], Q12H, 60 2010 Medic al mL, Center Substitution Allowed, SOLN docusate sodium 100 mg, 1 cap, PO On Hold [place] 100 mg oral PO, BID, 60 2010 Medical capsule cap, Center Substitution Allowed, CAP dexamethasone 4 mg 4 mg, 1 tab, PO On Hold [facility] oral tablet PO, Q6H-02, 60 2010 Medic al tab, Center Substitution Allowed, TAB bisacodyl 10 mg 10 mg, 1 supp, [place] On Hold [facility] rectal suppository [place], Daily, 2010 Me dical PRN, 60 supp, Center Constipation, Substitution Allowed, SUPP [place] 5/325 oral 1 tab, PO, PO On Hold [place] tablet Q4H, PRN, 60 2010 Medical tab, Headache, Center Substitution Allowed, Maintenance, TAB [place] 5/325 oral 1 tab, Route: PO No Longer [place] tablet PO, Drug Form: Active 2010 Medical TAB, Q4H, PRN [place] Headache, Start date: 01/30/11 15:44:00, Duration: 30 day, Stop date: 03/01/11 15:43:00 dexamethasone 4 mg, 1 tab, PO No Longer Christianson [facility] Route: PO, Active 2010 Medical Drug form: [place] TAB, Q6H-02, Start date: 01/29/11 12:00:00, Stop date: 02/28/11 6:00:00 insulin 20 unit, 0.2 SUB-Q No Longer Omidvar [place] isophane-NPH mL, Route: Active 2010 Medical SUB-Q, Drug Center form: INJ, Q8H, Start date: 01/29/11 8:00:00, Stop date: 02/28/11 0:00:00 Keppra 100 mg/mL 500 mg, 5 mL, [place] No Longer Boss [facility] oral solution Route: JATIN, Active 2010 Medical Drug form: [place] SOLN, Q12H, Start date: 01/28/11 21:00:00, Duration: 30 day, Stop date: 02/27/11 9:00:00 ranitidine 15 150 mg, 10 mL, [place] No Longer [facility] mg/mL oral syrup Route: JATIN, Active 2010 [facility] Drug form: [place] SYRP, Q12H, Start date: 01/28/11 21:00:00, Duration: 30 day, Stop date: 02/27/11 9:00:00 Dextrose 50% 6.25 gm, 12.5 IVP No Longer Shagagi [facility] Syringe mL, Route: Active 2010 Medical IVP, Drug Center Form: INJ, PRN, PRN Abnormal Lab Result, Start date: 01/28/11 17:39:00, Duration: 30 day, Stop date: 02/27/11 17:38:00 insulin regular 3 unit, 0.03 SUB-Q No Longer George 08/30/ [facility] human recombinant mL, Route: Active 2010 Med [...] 18 mmol, 6 mL, IV Active Day [place] Route: IV, 2010 Medical ONCE, Start Center date: 01/27/11 3:30:00, Stop date: 01/27/11 3:30:00 normal saline 0.9% 1,000 mL, IV No Longer George [facility] IV 1,000 mL Rate: 50 Active 2010 [...] IVP, Q6H, Active 2010 Medical Start date: [place] 01/26/11 12:00:00, Duration: 30 day, Stop date: 02/25/11 6:00:00 mannitol 75 gm, 375 mL, IVPB No Longer Christian [place] as Route: IVPB, Active 2010 Medical Drug form: [place] INJ, Q6H, Start date: 01/26/11 12:00:00, Duration: [...] IVPB, ONCE, Active 2010 Medical Start date: [place] 01/25/11 17:50:00, Stop date: 01/25/11 17:50:00 heparin [...] phosphate 15 mmol, IVPB No Longer Christian 01/25[facility] [place] Route: IVPB, Active 2010 Medical PRN, PRN Center Abnormal Lab Result, Start date: 01/25/11 6:44:00, Duration: 30 day, Stop date: 02/24/11 6:43:00 magnesium sulfate 4 gm, 100 mL, IVPB No Longer Christian [facility] Route: IVPB, Active 2010 Medical Drug form: [place] INJ, ONCE, Start date: 01/25/11 6:44:00, Duration: 1 doses or times, Stop date: 01/25/11 6:44:00, For Mg = 1.5 - 1.7 mg/dLFor Mg = 1.5 - 1.7 mg/dL hydrALAZINE 10 mg, 0.5 mL, IV No Longer Christian [facility] Route: IV, Active 2010 Medical Drug form: [place] INJ, Q30Min, PRN Hypertension, Start date: 01/25/11 0:14:00, Duration: 30 day, Stop date: 02/24/11 0:13:00 dexamethasone 10 mg, 1 mL, IV No Longer Rizvi 01/25[facility] Route: IV, Active 2010 Medical Drug form: [place] INJ, Q6H, Start date: 01/25/11 0:00:00, Stop date: 02/23/11 18:00:00 Insulin regular 99 mL, Rate: IV No Longer Avinash [facility] unit + Sodium TITRATE, Active 2010 Medic al Chloride 0.9% IV Route: IV, Cent er 99 mL Total Volume: 100, Start date: 01/24/11 23:59:00, Duration: 30 day, Stop date: 02/23/11 23:58:00 Dextrose 50% 12.5 gm, 25 IVP No Longer Christian 01/25[facility] [place] Syringe mL, Route: Active [...] mg, 2 mL, IV No Longer Christian 01/[place] [place] Route: IV, Active 2010 Medical Drug form: [place] INJ, Q15Min, PRN Hypertension, Start date: 01/24/11 22:36:00, Duration: 30 day, Stop date: 02/23/11 22:35:00 levetiracetam 500 mg, Route: IV No Longer Boss [facility] IV, Q12H, Active 2010 Medical Start date: [place] 01/24/11 21:00:00, Duration: 30 day, Stop date: 02/23/11 9:00:00 famotidine 20 mg, 2 mL, IV No Longer [facility] [place] as Route: IV, 2010 Medical Drug form: [place] INJ, Q12H, Start date: 01/24/11 21:00:00, Stop date: 02/23/11 9:00:00 propofol 10 mg/ml 1,000 mg, 100 IV No Longer [place] 01/25[facility] (titrate) 1,000 mg mL, Rate: Active 2010 Med ical Titrate as Center directed, Route: IV, Total Volume: 100 ml, Start date: 01/24/11 20:56:00, Duration: 30 day, Stop date: 02/23/11 20:55:00, Replace Every: 12 hr chlorhexidine 15 ml, Route: S&SPIT No Longer Ryan [facility] topical 0.12% S&SPIT, Q4H, Active 2010 Medic al liquid Drug form: [place] LIQ, Start date: 01/24/11 20:00:00, Duration: 30 day, Stop date: 02/23/11 16:00:00 niCARdipine 40 mg 40 mg, 200 mL, IV No Longer George 01/25 [facility] in [place] 200 ml IV 40 Rate: Titrate, Active 2010 Medical mg Route: IV, Center Total Volume: 200 mL, Duration: 30 day, Stop date: 02/23/11 19:06:00, Replace Every: 24 hr vancomycin 1 gm, Route: IVPB No Longer Boss [place] as IVPB, Drug Active 2010 Medical form: INJ, Center [id number], Start date: 01/24/11 9:00:00, Duration: 30 day, [...] [facility] units/mL mL, Route: Active 2010 [facility] injectable SUB-Q, Drug Center solution [...] 30 tab2010 Medic al Substitution Center Allowed [place] Thyroid 120 1 tab, PO, PO On Hold [place] mg oral tablet Daily, 30 tab, 2010 Me dical Substitution Center Allowed, TAB docusate 100 mg, 1 cap, PO [place] Longer [place] Route: PO, Active 2010 Medical Drug form: [place] CAP, BID, Start date: 01/23/11 9:00:00, Stop date: 02/21/11 17:00:00 Senna 8.6 mg oral 8.6 mg, 1 tab, PO No Longer Nur 01/23 [facility] tablet Route: PO, Active 2010 Medical Drug Form: [place] TAB, Q12H, Start date: 01/23/11 9:00:00, Duration: 30 day, Stop date: 02/21/11 21:00:00 levetiracetam 500 mg, 1 tab, PO No Longer Christian 01/23[facility] Route: PO, Active 2010 Medical Drug form: [place] TAB, Q12H, Start date: 01/23/11 9:00:00, Duration: 30 day, Stop date: 02/21/11 21:00:00 calcium chloride 1,000 mg, 10 IVPB No Longer Day [facility] mL, Route: Active 2010 Medical IVPB, ONCE, [place] Start date: 01/23/11 8:30:00, Stop date: 01/23/11 8:30:00 magnesium sulfate 2 gm, 50 mL, IVPB No Longer Day [facility] Route: IVPB, Active 2010 Medical Drug form: [place] INJ, Q2H, Start date: 01/23/11 8:20:00, Duration: 2 doses or times, Stop date: 01/23/11 10:00:00 dexamethasone 4 mg, 1 tab, PO No Longer Christian [facility] Route: PO, Active 2010 Medical Drug form: [place] TAB, Q6H, Start date: 01/23/11 6:00:00, Duration: 30 day, Stop date: 02/22/11 0:00:00 acetaminophen 650 mg, 2 tab, PO No Longer Nur [facility] Route: PO, Active 2010 Medical Drug form: Center TAB, Q4H, PRN Pain/Fever, Start date: 01/23/11 5:22:00, Duration: 30 day, Stop date: 02/22/11 5:21:00 morphine Sulfate 2 mg, 1 mL, IVP No Longer Rizvi [facility] Route: IVP, Active 2010 Medical Drug form: [...] regular 5 unit, 0.05 SUB-Q No Longer [place] [facility] human recombinant mL, Route: Active 2010 Med ical 100 units/mL SUB-Q, Drug Center injectable form: SOLN, solution PRN, PRN Abnormal Lab Result, Start date: 01/23/11 5:14:00, Duration: 30 day, Stop date: 02/22/11 5:13:00 Dextrose 50% 6.25 gm, 12.5 IVP No Longer [place] 01/23[facility] Syringe mL, Route: Active 2010 [facility] IVP, Drug Center Form: INJ, PRN, PRN Abnormal Lab Result, Start date: 01/23/11 5:14:00, Duration: 30 day, Stop date: 02/22/11 5:13:00 Saline Flush 0.9% 5 ml, Route: IVP No Longer [place] 01/23[facility] IVP, Drug Active 2010 Medical Form: INJ, Center PRN, PRN Line Flush, Start date: 01/23/11 5:14:00, Duration: 30 day, Stop date: 02/22/11 5:13:00 bisacodyl 10 mg, 1 supp, [place] No Longer Nur 01/23[facility] [place] Route: [place], Active 2010 Medical Drug form: Center SUPP, Daily, PRN Constipation, Start date: 01/23/11 5:14:00, Duration: 30 day, Stop date: 02/22/11 5:13:00 acetaminophen 650 mg, 2 tab, PO No Longer Nur 01/23/ [facility] Route: PO, Active 2010 Medical Drug form: Center TAB, Q4H, PRN Pain/Fever, Start date: 01/23/11 5:14:00, Duration: 30 day, Stop date: 02/22/11 5:13:00 morphine Sulfate 2 mg, 1 mL, IVP No Longer Nur 01/23[facility] Route: IVP, Active 2010 Medical Drug form: Center INJ, Q1H, PRN Pain Score 7-10, Start date: 01/23/11 5:14:00, Duration: 30 day, Stop date: 02/22/11 5:13:00 ondansetron 4 mg, 2 mL, IVP No Longer Nur 01/23[facility] [place] as Route: IVP, Active 2010 Medical Drug form: Center INJ, Q8H, PRN Nausea & Vomiting, Start date: 01/23/11 5:14:00, Duration: 30 day, Stop date: 02/22/11 5:13:00 Allergies, Adverse Reactions, Alerts Substance Category Reaction Severity Reaction Status Date Comments S ource type Reported penicillins< Assertion rash Drug Active Data [facility] sup>1</sup> allergy 1 migrated Med ical from [facility] on 01/22/15. Originally documented as PCN. erythromycin Assertion Drug Active Data [facility] <sup>2</sup> allergy 1 migrated Me dical from [facility] on 01/22/15. Originally documented as ERYTHROMYC IN. aspirin<sup> Assertion severe Drug Active Data [facility] 3</sup> chest allergy 1 migrated Medical pain from [facility] on 01/22/15. Originally documented as ASPIRIN. Adhesive Assertion Allergy to Active Data [facility] Tape<sup>4</ substance 1 migrated Medical sup> from [facility] on 08/01/15. Originally documented as ADHESIVE TAPE. PHENobarbita Assertion Drug Active Data [place] l<sup>5</sup allergy 1 migrated Me dical > from [facility] on 01/22/15. Originally documented as PHENOBARBI COSTA. aspirin<sup> Assertion severe Drug Active Data [place] 4</sup> chest allergy 1 migrated Medical pain from [facility] on 01/22/15. Originally documented as ASPIRIN. Adhesive Assertion Allergy to Active Data [facility] Tape<sup>6</ substance 1 migrated Medical sup> from [facility] on 08/01/15. Originally documented as ADHESIVE TAPE. PHENobarbita Assertion Drug Active Data [facility] l<sup>7</sup allergy 1 migrated Me dical > from [facility] on 01/22/15. Originally documented as PHENOBARBI COSTA. ciprofloxaci Assertion Drug Active [facility] heparin Assertion Severe Drug Active [facility] as [facility] phenobarbita Assertion rash Drug Active [facility] cefepime Assertion Drug Active [facility] Cortizone-10 Assertion Drug Active [facility] aspirin allergy to severe Allergy Active [facility] [place] substance chest Medica l pain Center erythromycin drug Allergy Active [facility] penicillins drug rash Allergy Active [facility] propensity takes Adverse Active [place] [...] 02/23/2019 Not Given [facility] vaccine, [facility] DOMONIQUE Lorenz nn Results Order Name Results Value Reference Date Interpretation Comments Rosalinda rce Range CHEM PANEL Magnesium 2.2 1.8 - 2.4 02/26 [facility] /[address] [place] [address] CHEM PANEL Phosphorus 3.3 2.5 - 4.5 02/[address] CHEM PANEL Glucose Lvl 176 70 - 99 02/26 [facility] CHEM PANEL BUN 20 7 - 22 02/26 [facility] CHEM PANEL Creatinine 0.96 0.50 - 02/26 [facility] Lvl 1.40 [facility] CHEM PANEL Sodium Lvl 141 135 - 145 02/26 2019 [facility] CHEM PANEL Potassium 4.3 3.5 - 5.1 02/26 [facility] [place] [facility] CHEM PANEL Chloride Lvl 111 95 - 109 02/26 s [facility] CHEM PANEL CO2 27 24 - 32 02/26 2019 [facility] CHEM PANEL AGAP 7.3 10.0 - 02/26 [place] 20.0 [facility] CHEM PANEL Calcium Lvl 8.7 8.5 - 10.5 02/26 [facility] as [facility] CHEM PANEL eGFR 59 02/26 Result [...] HEMATOLOGY WBC 19.0 3.7 - 10.4 02/26 [facility] HEMATOLOGY RBC 3.82 4.20 - 02/26 [facility] 5.40 [facility] HEMATOLOGY Hgb 9.2 12.0 - 02/26 [facility] 16.0 [facility] HEMATOLOGY Hct 29.8 36.0 - 02/26 [facility] 48.0 [facility] HEMATOLOGY MCV 78.2 80.0 - 02/26 [facility] 98.0 [facility] HEMATOLOGY MCH 24.1 27.0 - 02/26 [facility] 31.0 /2019 [facility] HEMATOLOGY MCHC 30.9 32.0 - 02/26 [facility] 36.0 /2019 [facility] HEMATOLOGY RDW 20.2 11.5 - 02/26 [facility] 14.5 /2019 [facility] HEMATOLOGY Platelet 110 133 - 450 02/[address] HEMATOLOGY MPV 9.5 7.4 - 10.4 02/[address] HEMATOLOGY Segs 78.2 45.0 - 02/26 [facility] 75.0 /2019 [facility] HEMATOLOGY Lymphocytes 15.4 20.0 - 02/26 [facility] 40.0 /2019 [facility] HEMATOLOGY Monocytes 5.7 2.0 - 12.0 02/[address] HEMATOLOGY Eosinophils 0.3 0.0 - 4.0 02/26 [facility] /[address] [place] [address] HEMATOLOGY Basophils 0.4 0.0 - 1.0 02/[address] HEMATOLOGY Neutrophils 14.9 1.5 - 8.1 02/26 [place] # /2019 [facility] HEMATOLOGY Lymphocytes 2.9 1.0 - 5.5 02/26 [place] # /[address] [place] [address] HEMATOLOGY Monocytes # 1.1 0.0 - 0.8 02/26 [facility] /[address] [place] [address] HEMATOLOGY Eosinophils 0.1 0.0 - 0.5 02/26 [facility] # /[address] [place] [address] HEMATOLOGY Basophils # 0.1 0.0 - 0.2 02/26 [facility] /[address] [place] [address] HEMATOLOGY Microcyte 1+ None Seen 02/26 [facility] *ABN* /2019 Medical (02/27/20 12:52 AM) Cente r PARATHYROID Ca Ion WB 1.22 1.05 - 02/26 [facility] PROFILE 1. [facility] PARATHYROID Ca Norm WB 1.20 1.05 - 02/26 [facility] PROFILE . [facility] CHEM PANEL Magnesium 2.1 1.8 - 2.4 02/25 [facility] /[address] [place] [address] CHEM PANEL Glucose Lvl 253 70 - 99 02/[address] CHEM PANEL BUN 14 7 - 22 02/[address] CHEM PANEL Creatinine 0.74 0.50 - 02/25 [facility] Lvl 1.40 [facility] CHEM PANEL Sodium Lvl 141 135 - 145 02/25 [facility] CHEM PANEL Potassium 4.3 3.5 - 5.1 02/25 [facility] Lvl [facility] CHEM PANEL Chloride Lvl 112 95 - 109 02[facility]25 [facility] CHEM PANEL CO2 23 24 - 32 02/25 [facility]2019 [facility] CHEM PANEL Calcium Lvl 8.7 8.5 - 10.5 02/25 [facility] as [facility] CHEM PANEL AGAP 10.3 10.0 - 02/25 [facility] 20.0 [facility] CHEM PANEL eGFR 80 02/25 Result [...] Phosphorus 2.7 2.5 - 4.5 02/25 2019 [facility] HEMATOLOGY Segs 84.4 45.0 - 02/25 [facility] 75.0 [facility] HEMATOLOGY Lymphocytes 10.8 20.0 - 02/25 [place] 40.0 [facility] HEMATOLOGY Monocytes 4.4 2.0 - 12.0 02/25 [facility]2019 [facility] HEMATOLOGY Eosinophils 0.1 0.0 - 4.0 02/25 [facility] /2019 [facility] HEMATOLOGY Basophils 0.3 0.0 - 1.0 02/25 [facility]2019 [facility] HEMATOLOGY Neutrophils 14.3 1.5 - 8.1 02/25 [place] # /2019 [facility] HEMATOLOGY Lymphocytes 1.8 1.0 - 5.5 02/25 [facility] # /2019 [facility] HEMATOLOGY Monocytes # 0.7 0.0 - 0.8 02/25 [facility] [address] [place] [address] HEMATOLOGY Microcyte 1+ None Seen 02/25 [facility] *ABN* /2019 [facility] (02/26/20 1:07 AM) [place] HEMATOLOGY WBC 16.9 3.7 - 10.4 02/[address] HEMATOLOGY RBC 3.72 4.20 - 02/25 [facility] 5.40 [facility] HEMATOLOGY Hgb 9.0 12.0 - 02/25 [facility] 16.0 /2019 [facility] HEMATOLOGY Hct 29.3 36.0 - 02/25 [facility] 48.0 /2019 [facility] HEMATOLOGY MCV 78.8 80.0 - 02/25 [facility] 98.0 /2019 [facility] HEMATOLOGY MCH 24.1 27.0 - 02/25 [facility] 31.0 /2019 [facility] HEMATOLOGY MCHC 30.6 32.0 - 02/25 [facility] 36.0 /2019 [facility] HEMATOLOGY RDW 19.6 11.5 - 02/25 [facility] 14.5 /2019 [facility] HEMATOLOGY Platelet 98 133 - 450 02/[address] HEMATOLOGY MPV 10.1 7.4 - 10.4 02/[address] PARATHYROID Ca Ion WB 1.18 1.05 - 02/25 [facility] PROFILE 1.25 /2019 [facility] PARATHYROID Ca Norm WB 1.17 1.05 - 02/25 [facility] PROFILE 1.25 /2019 [facility] CHEM PANEL Glucose Lvl 257 70 - 99 02/[address] CHEM PANEL BUN 16 7 - 22 02/[address] CHEM PANEL Creatinine 0.75 0.50 - 02/24 [facility] Lvl 1.40 [facility] CHEM PANEL Sodium Lvl 143 135 - 145 02/[address] CHEM PANEL Potassium 4.1 3.5 - 5.1 02/24 [facility] /[address] [place] [address] CHEM PANEL Chloride Lvl 111 95 - 109 02/[address] CHEM PANEL CO2 24 24 - 32 02/[address] CHEM PANEL Calcium Lvl 9.0 8.5 - 10.5 02/[address] CHEM PANEL AGAP 12.1 10.0 - 02/24 [facility] 20.0 /2019 [facility] CHEM PANEL eGFR 80 02/24 Result [place] [id number] Comment: The Medical eGFR is Center calculated [...] PANEL Magnesium 1.9 1.8 - 2.4 02/[address] CHEM PANEL Phosphorus 2.6 2.5 - 4.5 02/[address] HEMATOLOGY Fibrinogen 159 230 - 510 02/[address] HEMATOLOGY Segs 84.7 45.0 - 02/24 [facility] 75.0 2019 [facility] HEMATOLOGY Lymphocytes 10.5 20.0 - 02/24 [facility] 40.0 2019 [facility] HEMATOLOGY Monocytes 4.5 2.0 - 12.0 02/[address] HEMATOLOGY Eosinophils 0.1 0.0 - 4.0 02/[address] HEMATOLOGY Basophils 0.2 0.0 - 1.0 02/[address] HEMATOLOGY Neutrophils 15.2 1.5 - 8.1 02/24 [facility] # /2019 [facility] HEMATOLOGY Lymphocytes 1.9 1.0 - 5.5 02/24 [facility] # /[address] [place] [address] HEMATOLOGY Monocytes # 0.8 0.0 - 0.8 02/[address] HEMATOLOGY Microcyte 1+ None Seen 02/24 [facility] *ABN* /2019 [facility] (02/25/20 3:30 AM) [place] HEMATOLOGY WBC 17.9 3.7 - 10.4 02/[address] HEMATOLOGY RBC 3.96 4.20 - 02/24 [facility] 5.40 /2019 [facility] HEMATOLOGY Hgb 9.6 12.0 - 02/24 [place] 16.0 [facility] HEMATOLOGY Hct 31.0 36.0 - 02/24 [facility] 48.0 [facility] HEMATOLOGY MCV 78.3 80.0 - 02/24 [facility] 98.0 [facility] HEMATOLOGY MCH 24.3 27.0 - 02/24 [place] 31.0 [facility] HEMATOLOGY MCHC 31.0 32.0 - 02/24 [place] 36.0 [facility] HEMATOLOGY RDW 19.5 11.5 - 02/24 [facility] 14.5 [facility] HEMATOLOGY Platelet 94 133 - 450 02/[address] HEMATOLOGY MPV 9.6 7.4 - 10.4 02/[address] PARATHYROID Ca Ion WB 1.17 1.05 - 02/24 [facility] PROFILE 1. [facility] PARATHYROID Ca Norm WB 1.17 1.05 - 02/24 [facility] PROFILE 1.25 [facility] HEMATOLOGY Heparin Negative 5 Negative 02/23 Result [facility] Ab(SRIDEVI) (02/24/20 4:43 PM) Comment: [facility] Medical assay detects Center heparin antibodies of IgG isotype. Antibodies of other isotypes have been reported to cause heparin-induc ed thrombocytope davey. Therefore, if there is a strong clinical suspicion of HIT, additional study with a serotonin release assay is recommented. HEMATOLOGY Pat Od Value 0.064 02/23 [facility] /[address] [place] [address] HEMATOLOGY Pos CO Value 0.400 02/[address] HEMATOLOGY Basophils # 0.1 0.0 - 0.2 02/23 [facility] /2019 [facility] HEMATOLOGY Fibrinogen 175 230 - 510 02/22 [facility] Lvl /2019 [facility] CARDIAC BNP 73 <=100 02/21 [facility] ENZYMES pg/mL [facility] HEMATOLOGY Anisocyte 1+ None Seen 02/21 [facility] *ABN* /2019 [facility] (02/22/20 10:43 AM) Cente r HEMATOLOGY Hypochrom 1+ None Seen 02/21 [facility] (02/22/20 10:43 AM) /2019 [facility] HEMATOLOGY Eosinophils 0.2 0.0 - 0.5 02/21 [place] # /2019 [facility] HEMATOLOGY Basophils # 0.2 0.0 - 0.2 02/21 [facility] /2019 [facility] CHEM PANEL Lactic Acid 1.7 0.5 - 2.2 02/21 [facility] /2019 [facility] HEMATOLOGY Eosinophils 0.1 0.0 - 0.5 02/21 [facility] # [facility] CHEM PANEL Lactic Acid 3.8 0.5 - 2.2 02/21 [facility] /2019 [facility] CEFTRIAXONE Culture: 10,000 - 50,000 CFU/mL Enterobacter cloacae 02/21 [place] :SUSC:PT:IS Urine . /2019 Medical OLATE:ORDQN 10,000 - 50,000 CFU/mL [facility] :[facility] CEFTRIAXONE Enterobacter Enterobact 02/21 [place] :SUSC:PT:IS cloacae er cloacae Medical OLATE:ORDQN Center :[facility] URINE AND UA Color Light Yellow Yellow 02/21 [facility] STOOL *NA* [facility] (02/21/20 9:52 PM) [place] URINE AND UA Turbidity Slight Clear 02/21 [facility] STOOL *ABN* /2019 [facility] (02/21/20 9:52 PM) [place] URINE AND UA Spec Grav 1.015 <=1.030 02/21 [facility] STOOL /[address] [place] [address] URINE AND UA pH 5.0 5.0 - 8.0 02/21 [facility] STOOL /[address] [place] [address] URINE AND UA Protein Negative Negative 02/21 [facility] mg/dL mg/dL /[address] [place] [address] URINE AND UA Glucose 500 mg/dL Negative 02/21 [facility] STOOL mg/dL /[address] [place] [address] URINE AND UA Ketones Negative Negative 02/21 [facility] mg/dL mg/dL /[address] [place] [address] URINE AND UA Bili Negative Negative 02/21 [facility] STOOL *NA* [facility] (02/21/20 9:52 PM) [place] URINE AND UA Blood Negative Negative 02/21 [facility] (02/21/20 9:52 PM) /[facility]ica l [place] URINE AND UA <1.0 0.1 - 1.0 02/21 [facility] Urobilinogen /[address] [place] [address] URINE AND UA Nitrite Positive Negative 02/21 [facility] STOOL *ABN* /[address] [place] [address] (02/21/20 9:52 PM) [place] URINE AND UA Leuk Est Trace Negative 02/21 [facility] STOOL *ABN* [facility] (02/21/20 9:52 PM) Center URINE AND UA Sq Epi Occasional Few /LPF 02/21 [facility] STOOL /F /[address] [place] [address] URINE AND UA WBC 16 0 - 5 02/[address] URINE AND UA RBC 2 0 - 2 02/[address] URINE AND UA Bacteria Occasional None Seen 02/[place] ST[place]OL /HPF /HPF /[address] [place] [address] URINE AND UA Mucus Few /LPF None Seen 02/21 [facility] STOOL /F /[address] [place] [address] URINE AND UA Hyal Cast 3 0 - 2 02/[address] CHEM PANEL Lactic Acid 2.9 0.5 - 2.2 02/[address] CHEM PANEL Procalcitoni <0.05 0.00 - 02/21 [facility] n Lvl ng/mL 0.10 [facility] HEMATOLOGY Fibrinogen 158 230 - 510 02/[address] HEMATOLOGY PT 14.2 12.0 - 02/20 [facility] 14.7 /[address] [place] [address] HEMATOLOGY INR 1.10 0.85 - 02/20 [facility] 1.17 /2019 [facility] HEMATOLOGY PTT 43.0 22.9 - 02/20 [facility] 35.[address] HEMATOLOGY Fibrinogen 158 230 - 510 02/[address] BLOOD BANK ABO/Rh O POS 02/18 [facility] RESULTS /[address] [place] [address] BLOOD BANK Antibody Negative 02/18 [facility] RESULTS Scrn (02/19/20 9:31 AM) /2019 [facility] CHEM PANEL Glucose Lvl 102 70 - 99 02/[address] CHEM PANEL BUN 15 7 - 22 02/[address] CHEM PANEL Creatinine 0.67 0.50 - 02/18 [facility] Lvl 1.[address] [place] [address] CHEM PANEL Sodium Lvl 144 135 - 145 02/[address] CHEM PANEL Potassium 3.6 3.5 - 5.1 02/[address] CHEM PANEL Chloride Lvl 110 95 - 109 02/[address] CHEM PANEL CO2 29 24 - 32 02/[address] CHEM PANEL Calcium Lvl 8.4 8.5 - 10.5 02/18 [facility] /[address] [place] [address] CHEM PANEL AGAP 8.6 10.0 - 02/18 [place] 20.0 [facility] CHEM PANEL eGFR 87 02/18 [facility] Comment: The Medical eGFR is Center [...] PANEL Magnesium 1.8 1.8 - 2.4 02/18 [facility] /2019 [facility] CHEM PANEL Phosphorus 2.5 2.5 - 4.5 02/[address] HEMATOLOGY PT 14.2 12.0 - 02/18 [place] 14.7 /2020 [facility] HEMATOLOGY INR 1.10 0.85 - 02/18 [facility] 1.17 [facility] HEMATOLOGY PTT 37.8 22.9 - 02/18 [place] 35.8 /2020 [facility] HEMATOLOGY Fibrinogen 167 230 - 510 02/18 [facility] /2019 [facility] HEMATOLOGY D-Dimer 0.96 02/18 [facility]2019 [facility] HEMATOLOGY Thrombin 25.6 15.0 - 02/18 [place] [facility] 21.2 /2020 [facility] HEMATOLOGY Fibrinogen 180 230 - 510 02/18 [facility] /2019 [facility] HEMATOLOGY PT 14.4 12.0 - 02/18 [place] 14.7 /2020 [facility] HEMATOLOGY INR 1.11 0.85 - 02/18 [place] 1.17 [facility] HEMATOLOGY PTT 37.1 22.9 - 02/18 [place] 35.8 /2020 [facility] HEMATOLOGY WBC 18.9 3.7 - 10.4 02/18 [facility]2020 [facility] HEMATOLOGY RBC 4.69 4.20 - 02/18 [facility] [place] 5.40 /2019 [facility] HEMATOLOGY Hgb 11.2 12.0 - 02/18 [facility] 16.0 /2019 [facility] HEMATOLOGY Hct 37.1 36.0 - 02/18 [facility] 48.0 /2019 [facility] HEMATOLOGY MCV 79.1 80.0 - 02/18 [facility] 98.0 /2019 [facility] HEMATOLOGY MCH 23.8 27.0 - 02/18 [facility] 31.0 /2019 [facility] HEMATOLOGY MCHC 30.1 32.0 - 02/18 [facility] 36.0 /2019 [facility] HEMATOLOGY RDW 18.7 11.5 - 02/18 [facility] 14.5 /2019 [facility] HEMATOLOGY Platelet 134 133 - 450 02/[address] HEMATOLOGY MPV 9.7 7.4 - 10.4 02/[address] HEMATOLOGY Segs 61.0 45.0 - 02/18 [facility] 75.0 /2019 [facility] HEMATOLOGY Lymphocytes 30.5 20.0 - 02/18 [facility] 40.0 /2019 [facility] HEMATOLOGY Monocytes 7.1 2.0 - 12.0 02/[address] HEMATOLOGY Eosinophils 0.7 0.0 - 4.0 02/[address] HEMATOLOGY Basophils 0.7 0.0 - 1.0 02/[address] HEMATOLOGY Neutrophils 11.5 1.5 - 8.1 02/18 [facility] /2019 [facility] HEMATOLOGY Lymphocytes 5.8 1.0 - 5.5 02/18 [facility] /[address] [place] [address] HEMATOLOGY Monocytes # 1.3 0.0 - 0.8 02/[address] HEMATOLOGY Eosinophils 0.1 0.0 - 0.5 02/18 [facility] /[address] [place] [address] HEMATOLOGY Basophils # 0.1 0.0 - 0.2 02/[address] PARATHYROID Ca Ion WB 1.11 1.05 - 02/18 [facility] PROFILE 1. /2019 [facility] PARATHYROID Ca Norm WB 1.12 1.05 - 02/18 [facility] PROFILE . [facility] CHEM PANEL Phosphorus 3.5 2.5 - 4.5 02/[address] CHEM PANEL Magnesium 1.6 1.8 - 2.4 02/17 [facility] Lvl [facility] CHEM PANEL Glucose Lvl 210 70 - 99 02/17 [facility] CHEM PANEL BUN 12 7 - 22 02/17 [facility]2019 [facility] CHEM PANEL Creatinine 0.67 0.50 - 02/17 [facility] Lvl 1.40 [facility] CHEM PANEL Sodium Lvl 141 135 - 145 02/17 2019 [facility] CHEM PANEL Potassium 3.3 3.5 - 5.1 02/17 [facility] [place] [facility] CHEM PANEL Chloride Lvl 106 95 - 109 02[facility]17 [facility] CHEM PANEL CO2 28 24 - 32 02/17 [facility]2019 [facility] CHEM PANEL Calcium Lvl 8.7 8.5 - 10.5 02/17 [facility] CHEM PANEL AGAP 10.3 10.0 - 02/17 [facility] 20.0 [facility] CHEM PANEL eGFR 87 02/17 [facility] Comment: The Medical eGFR is Center calculated [...] 12.0 - 02/17 [facility] 14.7 [facility] HEMATOLOGY INR 1.42 0.85 - 02/17 [facility] 1.17 [facility] HEMATOLOGY PTT 82.9 22.9 - 02/17 [place] 35.8 [facility] HEMATOLOGY D-Dimer 0.68 02/[address] HEMATOLOGY Fibrinogen 108 230 - 510 02/17 [facility] Lvl /2019 [facility] HEMATOLOGY Thrombin >100 15.0 - 02/17 [facility] Time seconds 21.2 [facility] HEMATOLOGY WBC 16.3 3.7 - 10.4 02/[address] HEMATOLOGY RBC 4.72 4.20 - 02/17 [place] 5.40 /2019 [facility] HEMATOLOGY Hgb 11.4 12.0 - 02/17 [place] 16.0 /2019 [facility] HEMATOLOGY Hct 37.0 36.0 - 02/17 [place] 48.0 /2019 [facility] HEMATOLOGY MCV 78.4 80.0 - 02/17 [place] 98.0 /2019 [facility] HEMATOLOGY MCH 24.1 27.0 - 02/17 [place] 31.0 /2019 [facility] HEMATOLOGY MCHC 30.7 32.0 - 02/17 [facility] 36.0 /2019 [facility] HEMATOLOGY RDW 18.3 11.5 - 02/17 [facility] 14.5 /2019 [facility] HEMATOLOGY Platelet 151 133 - 450 02/[address] HEMATOLOGY MPV 9.7 7.4 - 10.4 02/[address] HEMATOLOGY Segs 66.2 45.0 - 02/17 [place] 75.0 /2019 [facility] HEMATOLOGY Lymphocytes 23.2 20.0 - 02/17 [place] 40.0 /2019 [facility] HEMATOLOGY Monocytes 9.3 2.0 - 12.0 02/[address] HEMATOLOGY Eosinophils 0.8 0.0 - 4.0 02/17 [facility] /[address] [place] [address] HEMATOLOGY Basophils 0.5 0.0 - 1.0 02/[address] HEMATOLOGY Neutrophils 10.8 1.5 - 8.1 [place] /2019 [facility] HEMATOLOGY Lymphocytes 3.8 1.0 - 5.5 02[place] /2020 [facility] HEMATOLOGY Monocytes # 1.5 0.0 - 0.8 02/17 [facility] /[address] [place] [address] HEMATOLOGY Eosinophils 0.1 0.0 - 0.5 02/17 [place] # /[address] [place] [address] HEMATOLOGY Basophils # 0.1 0.0 - 0.2 02/17 [facility] /[address] [place] [address] HEMATOLOGY Microcyte 1+ None Seen 02/17 [place] *ABN* /2019 Medical (02/18/20 4:08 AM) Center PARATHYROID Ca Ion WB 1.13 1.05 - 02/17 [place] PROFILE 1.25 [facility] PARATHYROID Ca Norm WB 1.12 1.05 - 02/17 [place] PROFILE . [facility] IMMUNOLOGY Coronavirus Not Detected Not 02/16 [place] (COVID-19) (02/17/20 12:25 PM) Detected /2019 [facility] BLOOD BANK BB Note Result Note 4 02/16 Result [place] [facility] RESULTS (02/17/20 12:10 PM) Comment: [facility] roger 02/17/2020 [place] 14:11 [id number]
"Significant Findings of Positive Antibody Screen_ called to _Bryant Keen_ at _02/17/2020 14:11_ by _MG_. Read Back OK" BLOOD BANK ABO/Rh O POS 02/16 [facility] RESULTS /2019 [facility] BLOOD BANK Antibody Positive 02/16 [facility] RESULTS Scrn (02/17/20 12:10 PM) [facility] BLOOD BANK AB Int Anti-D 02/16 [facility] RESULTS /2019 [facility] BLOOD BANK Path AB Blood Bank 02/16 [facility] RESULTS Physician /2019 [facility] The patient is a 75 y/o female with history of dementia, meningioma s/p resection 10 years ago with VPS, type II diabetes mellitus, HTN, HLD, CAD, hypothyroi dism, JD, seropositi ve myasthenia gravis (anti-stri ated muscle antibodies ), and recent spinal surgery around 3 weeks who presented as a direct transfer from [facility] due to concerns of MG exacerbati on. [...] resident, Dr. Doug Warner's, interpreta tion. CPT: 33546-LF CARDIAC Total CK 25 12 - 191 02/[address] CHEM PANEL Phosphorus 3.0 2.5 - 4.5 02/[address] CHEM PANEL Glucose Lvl 215 70 - 99 02/[address] CHEM PANEL BUN 11 7 - 22 02/[address] CHEM PANEL Creatinine 0.68 0.50 - 02/16 [facility] Lvl 1.40 [facility] CHEM PANEL Sodium Lvl 135 135 - 145 02/[address] CHEM PANEL Potassium 3.4 3.5 - 5.1 02/16 [facility] [place] [facility] [address] CHEM PANEL Chloride Lvl 101 95 - 109 02/16 [facility] [address] CHEM PANEL CO2 31 24 - 32 02/[address] CHEM PANEL Calcium Lvl 8.4 8.5 - 10.5 02/16 [facility] as [address] CHEM PANEL AGAP 6.4 10.0 - 02/16 [facility] 20.0 2019 [facility] CHEM PANEL eGFR 87 02/16 [place] [address] Comment: The Medical eGFR is Center calculated [...] 02/16 [facility] n l 0.10 [facility] CHEM PANEL Lactic Acid 1.6 0.5 - 2.2 02/16 [facility] Lvl /2019 [facility] HEMATOLOGY WBC 16.0 3.7 - 10.4 02/[address] HEMATOLOGY RBC 5.23 4.20 - 02/16 [facility] 5.40 [facility] HEMATOLOGY Hgb 12.7 12.0 - 02/16 [facility] 16.0 [facility] HEMATOLOGY Hct 41.4 36.0 - 02/16 [facility] 48.0 /2019 [facility] HEMATOLOGY MCV 79.1 80.0 - 02/16 [facility] 98.0 [facility] HEMATOLOGY MCH 24.4 27.0 - 02/16 [facility] 31.0 [facility] HEMATOLOGY MCHC 30.8 32.0 - 02/16 [facility] 36.0 [facility] HEMATOLOGY RDW 18.3 11.5 - 02/16 [facility] 14.5 [facility] HEMATOLOGY Platelet 161 133 - 450 02/[address] HEMATOLOGY MPV 10.1 7.4 - 10.4 02/[address] HEMATOLOGY Segs 84.7 45.0 - 02/16 [facility] 75.0 /2019 [facility] HEMATOLOGY Lymphocytes 9.3 20.0 - 18 [facility] 40.0 /2020 [facility] HEMATOLOGY Monocytes 5.0 2.0 - 12.[address] HEMATOLOGY Eosinophils 0.5 0.0 - 4.0 02/16 [facility] /2019 [facility] HEMATOLOGY Basophils 0.5 0.0 - 1.[address] HEMATOLOGY Neutrophils 13.6 1.5 - 8.1 02/16 [facility] # /2019 [facility] HEMATOLOGY Lymphocytes 1.5 1.0 - 5.5 02/16 [facility] # /2019 [facility] HEMATOLOGY Monocytes # 0.8 0.0 - 0.8 02/16 [facility] /2019 [facility] HEMATOLOGY Basophils # 0.1 0.0 - 0.2 02/16 [facility] /2019 [facility] LIPIDS Trig 156 <=149 02/16 [facility] mg/dL /[address] [place] [address] LIPIDS Chol 154 <=199 02/16 [facility] mg/dL /2019 [facility] LIPIDS HDL 54 >=61 mg/dL 02/[address] LIPIDS CHD Risk 2.85 3.90 - 02/16 [facility] 5.80 [facility] LIPIDS LDL 69 <=99 mg/dL 02/16 [facility] (Calculated) /2019 [facility] LIPIDS VLDL 31 02/[address] URINE AND UA Color Yellow Yellow 02/15 [facility] STOOL *NA* /2019 [facility] (02/15/20 10:29 PM) Cente r URINE AND UA Turbidity Marked Clear 02/15 [facility] STOOL *ABN* [facility] (02/15/20 10:29 PM) Cente r URINE AND UA Spec Grav 1.015 <=1.030 02/15 [facility] STOOL /[address] [place] [address] URINE AND UA pH 7.0 5.0 - 8.0 02/15 [facility] STOOL /[address] [place] [address] URINE AND UA Protein Negative Negative 02/15 [facility] STOOL mg/dL mg/dL [facility] URINE AND UA Ketones Negative Negative 02/15 [facility] STOOL mg/dL mg/dL [facility] URINE AND UA Bili Negative Negative 02/15 [facility] STOOL *NA* [facility] (02/15/20 10:29 PM) Cente r URINE AND UA Blood Negative Negative 02/15 [facility] STOOL (02/15/20 10:29 PM) Medic al Center URINE AND UA <1.0 0.1 - 1.0 02/15 [facility] STOOL Urobilinogen /[address] [place] [address] URINE AND UA Nitrite Negative Negative 02/15 [facility] STOOL (02/15/20 10:29 PM) /2019 [facility] Center URINE AND UA Leuk Est Negative Negative 02/15 [facility] STOOL (02/15/20 10:29 PM) /2019 [facility] URINE AND UA Sq Epi Few /LPF Few /LPF 02/15 [facility] STOOL [address] URINE AND UA WBC 1 0 - 5 02/[address] URINE AND UA RBC 1 0 - 2 02/[address] URINE AND UA Bacteria Occasional None Seen 02/15 [place] STOOL /HPF /HPF /[address] [place] [address] URINE AND UA Mucus Few /LPF None Seen 02/15 [facility] STOOL /LPF /[address] [place] [address] URINE AND UA Amorph Moderate None Seen 02/15 [facility] STOOL [place] /HPF /HPF /[address] [place] [address] URINE AND UA Hyal Cast 3 0 - 2 02/[address] URINE AND UA Glucose 150mg/dl 02/[address] CHEM PANEL Total 5.8 6.4 - 8.4 02/15 [facility] Protein [address] CHEM PANEL Albumin Lvl 2.4 3.5 - 5.0 02/15 [facility] [address] CHEM PANEL ALT 26 0 - 65 02/[address] CHEM PANEL AST 16 0 - 37 02/[address] CHEM PANEL Alk Phos 162 39 - 136 02/[address] CHEM PANEL Bili Total 0.3 0.2 - 1.3 02/[address] CHEM PANEL B/C Ratio 25 6 - 25 02/[address] CHEM PANEL Globulin 3.4 2.7 - 4.2 02/[address] CHEM PANEL A/G Ratio 0.7 0.7 - 1.6 02/[address] IMMUNOLOGY Coronavirus Not Detected Not 12/19 [place] (COVID-19) (12/20/19 12:18 PM) Detected /2019 [facility] CARDIAC Troponin-I 0.02 0.00 - 12/17 [facility] ENZYMES 0.[address] [place] [address] CHEM PANEL Glucose Lvl 145 70 - 99 12/[address] CHEM PANEL BUN 10 7 - 22 12/[address] CHEM PANEL Creatinine 0.64 0.50 - 12/17 [place] Lvl 1.[address] [place] [address] CHEM PANEL Sodium Lvl 143 135 - 145 12/17 [facility] CHEM PANEL Potassium 3.9 3.5 - 5.1 12/17 [facility] [place] [facility] CHEM PANEL Chloride Lvl 108 95 - 109 12/17 [facility] CHEM PANEL CO2 28 24 - 32 12/17 [facility]2019 [facility] CHEM PANEL AGAP 10.9 10.0 - 12/17 [facility] 20.0 [facility] CHEM PANEL Calcium Lvl 8.3 8.5 - 10.5 12/17 [facility] CHEM PANEL eGFR 89 12/17 [facility] Comment: The Medical eGFR is Center calculated [...] PANEL Magnesium 2.1 1.8 - 2.4 12/17 [facility] [place] [facility] CHEM PANEL Phosphorus 3.2 2.5 - 4.5 12/17 [facility] HEMATOLOGY WBC 9.9 3.7 - 10.4 12/17 [facility] HEMATOLOGY RBC 3.09 4.20 - 12/17 [place] 5.40 [facility] HEMATOLOGY Hgb 9.1 12.0 - 12/17 [facility] 16.0 [facility] HEMATOLOGY Hct 28.9 36.0 - 12/17 [facility] 48.0 [facility] HEMATOLOGY MCV 93.7 80.0 - 12/17 [facility] 98.0 [facility] HEMATOLOGY MCH 29.4 27.0 - 12/17 [place] 31.0 [facility] HEMATOLOGY MCHC 31.4 32.0 - 12/17 [place] 36.0 [facility] HEMATOLOGY RDW 16.7 11.5 - 12/17 [facility] 14.5 [facility] HEMATOLOGY Platelet 200 133 - 450 12/[address] HEMATOLOGY MPV 10.2 7.4 - 10.4 12/[address] HEMATOLOGY Segs 66.2 45.0 - 12/17 [facility] 75.0 [facility] HEMATOLOGY Lymphocytes 23.0 20.0 - 12/17 [place] 40.0 /2019 [facility] HEMATOLOGY Monocytes 8.2 2.0 - 12.0 12/[address] HEMATOLOGY Eosinophils 1.2 0.0 - 4.0 12/[address] HEMATOLOGY Basophils 1.4 0.0 - 1.0 12/[address] HEMATOLOGY Neutrophils 6.5 1.5 - 8.1 12/17 [facility] /[address] [place] [address] HEMATOLOGY Lymphocytes 2.3 1.0 - 5.5 12/17 [facility] /[address] [place] [address] HEMATOLOGY Monocytes # 0.8 0.0 - 0.8 12/[address] HEMATOLOGY Eosinophils 0.1 0.0 - 0.5 12/17 [facility] /[address] [place] [address] HEMATOLOGY Basophils # 0.1 0.0 - 0.2 12/[address] URINE AND UA Color Dark Yellow Yellow 12/17 [facility] STOOL *NA* /2019 [facility] (12/18/19 5:06 AM) [place] URINE AND UA Turbidity Slight Clear 12/17 [facility] STOOL *ABN* [facility] (12/18/19 5:06 AM) [place] URINE AND UA Spec Grav 1.018 <=1.030 12/17 [facility] [place] [facility] /[address] [place] [address] URINE AND UA pH 6.0 5.0 - 8.0 12/[address] URINE AND UA Protein 30 mg/dL Negative 12/17 [facility] STOOL mg/dL /[address] [place] [address] URINE AND UA Ketones Negative Negative 12/17 [facility] STOOL mg/dL mg/dL /[address] [place] [address] URINE AND UA Bili Negative Negative 12/17 [facility] STOOL *NA* /2019 [facility] (12/18/19 5:06 AM) [place] URINE AND UA Blood Negative Negative 12/17 [facility] STOOL (12/18/19 5:06 AM) /2019 [facility] URINE AND UA 4.0 0.1 - 1.0 12/17 [facility] [place] [facility] Urobilinogen /[address] [place] [address] URINE AND UA Nitrite Negative Negative 12/17 [facility] STOOL (12/18/19 5:06 AM) [facility] URINE AND UA Leuk Est Negative Negative 12/17 [facility] [place] [facility] (12/18/19 5:06 AM) /2019 [facility] URINE AND UA Sq Epi Moderate Few /LPF 12/17 [facility] STOOL /LPF /[address] [place] [address] URINE AND UA WBC 10 0 - 5 12/[address] URINE AND UA RBC 2 0 - 2 12/[address] URINE AND UA Bacteria Few /HPF None Seen 12/17 [facility] STOOL /HPF /[address] [place] [address] URINE AND UA Mucus Few /LPF None Seen 12/17 [facility] [place] [facility] /LPF /[address] [place] [address] URINE AND UA Hyal Cast 7 0 - 2 12/[address] URINE AND UA [place] Yeast Occasional None Seen 12/17 [place] STOOL /HPF /HPF /[address] [place] [address] URINE AND UA Glucose 50mg/dl 12/[address] CHEM PANEL Glucose Lvl 266 70 - 99 12/[address] CHEM PANEL BUN 11 7 - 22 12/[address] CHEM PANEL Creatinine 0.80 0.50 - 12/16 [facility] Lvl 1.[address] [place] [address] CHEM PANEL Sodium Lvl 140 135 - 145 12/[address] CHEM PANEL Potassium 3.4 3.5 - 5.1 12/16 [facility] [place] [facility] /[address] [place] [address] CHEM PANEL Chloride Lvl 105 95 - 109 12/16 [facility] [address] CHEM PANEL CO2 31 24 - 32 12/[address] CHEM PANEL Calcium Lvl 8.2 8.5 - 10.5 12/16 [facility] [address] CHEM PANEL AGAP 7.4 10.0 - 12/16 [facility] 20.0 2019 [facility] CHEM PANEL eGFR 74 12/16 Result [...] - 2.4 12/16 [facility] Lvl /[address] [place] [address] CHEM PANEL Phosphorus 2.8 2.5 - 4.5 12/[address] HEMATOLOGY WBC 8.9 3.7 - 10.4 12/[address] HEMATOLOGY RBC 3.03 4.20 - 12/16 [place] 5.40 [facility] HEMATOLOGY Hgb 9.3 12.0 - 12/16 [place] 16.0 /2019 [facility] HEMATOLOGY Hct 28.4 36.0 - 12/16 [place] 48.0 /2019 [facility] HEMATOLOGY MCV 93.8 80.0 - 12/16 [place] 98.0 /2019 [facility] HEMATOLOGY MCH 30.7 27.0 - 12/16 [place] 31.0 /2019 [facility] HEMATOLOGY MCHC 32.8 32.0 - 12/16 [place] 36.0 /2019 [facility] HEMATOLOGY RDW 16.9 11.5 - 18 [place] 14.5 /2019 [facility] HEMATOLOGY Platelet 197 133 - 450 12/[address] HEMATOLOGY MPV 9.7 7.4 - 10.4 12/[address] HEMATOLOGY Segs 71.0 45.0 - 12/16 [place] 75.0 /2019 [facility] HEMATOLOGY Lymphocytes 16.3 20.0 - 18 [place] 40.0 /2020 [facility] HEMATOLOGY Monocytes 6.5 2.0 - 12.0 12/[address] HEMATOLOGY Eosinophils 4.0 0.0 - 4.0 [place] [facility] HEMATOLOGY Basophils 2.2 0.0 - 1.0 12/[address] HEMATOLOGY Neutrophils 6.3 1.5 - 8.1 12/16 [facility] /2019 [facility] HEMATOLOGY Lymphocytes 1.4 1.0 - 5.5 12/16 [facility] HEMATOLOGY Monocytes # 0.6 0.0 - 0.8 12/[address] HEMATOLOGY Eosinophils 0.4 0.0 - 0.5 12/16 [facility] /2019 [facility] HEMATOLOGY Basophils # 0.2 0.0 - 0.2 12/[address] CARDIAC Troponin-I 0.03 0.00 - 12/14 [facility] ENZYMES 0.40 [facility] CHEM PANEL Glucose Lvl 155 70 - 99 12/[address] CHEM PANEL BUN 12 7 - 22 12/[address] CHEM PANEL Creatinine 0.59 0.50 - 12/14 [facility] [place] [facility] 1.40 2019 [facility] CHEM PANEL Sodium Lvl 142 135 - 145 12/[address] CHEM PANEL Potassium 3.9 3.5 - 5.1 12/[address] CHEM PANEL Chloride Lvl 103 95 - 109 12/[address] CHEM PANEL CO2 34 24 - 32 12/[address] CHEM PANEL Calcium Lvl 8.3 8.5 - 10.5 12/[address] CHEM PANEL AGAP 8.9 10.0 - 12/14 [facility] 20.0 2019 [facility] CHEM PANEL eGFR 92 12/14 Result [place] [address] Comment: The Medical eGFR is Center calculated [...] - 2.4 12/14 [facility] Lvl /[address] [place] [address] CHEM PANEL Phosphorus 2.4 2.5 - 4.5 12/[address] HEMATOLOGY WBC 11.9 3.7 - 10.4 12/[address] HEMATOLOGY RBC 3.25 4.20 - 12/14 [place] 5.40 /2019 [facility] HEMATOLOGY Hgb 9.5 12.0 - 12/14 [facility] 16.0 /2019 [facility] HEMATOLOGY Hct 30.4 36.0 - 12/14 [place] 48.0 /[address] [place] [address] HEMATOLOGY MCV 93.5 80.0 - 12/14 [place] 98.0 /[address] [place] [address] HEMATOLOGY MCH 29.3 27.0 - 12/14 [place] 31.0 /[address] [place] [address] HEMATOLOGY MCHC 31.4 32.0 - 12/14 [place] 36.0 /[address] [place] [address] HEMATOLOGY RDW 17.3 11.5 - 12/14 [place] 14.5 /80 [place] [address] HEMATOLOGY Platelet 193 133 - 450 12/[address] HEMATOLOGY MPV 10.2 7.4 - 10.4 12/[address] HEMATOLOGY Segs 69.3 45.0 - 12/14 [place] 75.0 /[address] [place] [address] HEMATOLOGY Lymphocytes 18.5 20.0 - 12/14 [place] 40.0 /2020 [facility] HEMATOLOGY Monocytes 7.6 2.0 - 12.0 12/[address] HEMATOLOGY Eosinophils 3.8 0.0 - 4.0 12/14 [facility] [place] [address] HEMATOLOGY Basophils 0.8 0.0 - 1.0 12/[address] HEMATOLOGY Neutrophils 8.3 1.5 - 8.1 12/14 [place] # /[address] [place] [address] HEMATOLOGY Lymphocytes 2.2 1.0 - 5.5 12/14 [place] # /[address] [place] [address] HEMATOLOGY Monocytes # 0.9 0.0 - 0.8 12/14 [place] /[address] [place] [address] HEMATOLOGY Eosinophils 0.5 0.0 - 0.5 12/14 [place] /2019 [facility] HEMATOLOGY Basophils # 0.1 0.0 - 0.2 12/14 [facility]2020 [facility] HEMATOLOGY RBC Morph Normal Normal 12/13 [facility] (12/14/19 6:58 AM) /2019 [facility] [place] HEMATOLOGY Plt Morph Normal Normal 12/13 [facility] (12/14/19 6:58 AM) /2019 [facility] [place] CHEM PANEL Total 5.2 6.4 - 8.4 12/10 [facility] Protein /[address] [place] [address] CHEM PANEL Albumin Lvl 2.2 3.5 - 5.0 12/10 [facility] /2019 [facility] CHEM PANEL ALT 22 0 - 65 12/[address] CHEM PANEL AST 13 0 - 37 12/[address] CHEM PANEL Alk Phos 251 39 - 136 12/[address] CHEM PANEL Bili Total 0.9 0.2 - 1.3 12/[address] CHEM PANEL B/C Ratio 25 6 - 25 12/[address] CHEM PANEL Globulin 3.0 2.7 - 4.2 12/[address] CHEM PANEL A/G Ratio 0.7 0.7 - 1.6 12/[address] BODY FLUIDS Cris Occult Positive Negative 12/08 [facility] Bld *ABN* /2019 [facility] (12/09/19 12:45 PM) Cente r HEMATOLOGY RBC Morph Normal Normal 12/08 [facility] (12/09/19 11:46 AM) /2019 [facility] [place] HEMATOLOGY Plt Morph Normal Normal 12/08 [facility] (12/09/19 11:46 AM) /2019 [facility] [place] CHEM PANEL Total 4.5 6.4 - 8.4 12/06 [facility] Protein /[address] [place] [address] CHEM PANEL Albumin Lvl 2.5 3.5 - 5.0 12/06 [facility] /[address] [place] [address] CHEM PANEL ALT 27 0 - 65 12/[address] CHEM PANEL AST 11 0 - 37 12/[address] CHEM PANEL Alk Phos 82 39 - [address] CHEM PANEL Bili Total 0.8 0.2 - 1.3 12/[address] CHEM PANEL Bili Direct 0.3 0.0 - 0.3 07/[place] [facility] CHEM PANEL Bili 0.5 0.0 - 1.0 12/06 [facility] Indirect /2019 [facility] CHEM PANEL Globulin 2.0 2.7 - 4.2 12/06 [facility] /[address] [place] [address] CHEM PANEL A/G Ratio 1.2 0.7 - 1.6 12/06 [facility] /[address] [place] [address] PARATHYROID Ca Ion WB 1.05 1.05 - 12/06 [facility] PROFILE 1.[address] [place] [address] PARATHYROID Ca Norm WB 1.09 1.05 - 12/06 [facility] PROFILE 1.25 [facility] HEMATOLOGY PTT 31.1 22.9 - 12/05 [place] 35.8 [facility] HEMATOLOGY PT 15.3 12.0 - 12/05 [facility] 14.7 [facility] HEMATOLOGY INR 1.20 0.85 - 12/05 [facility] 1.17 [facility] PARATHYROID Ca Ion WB 1.06 1.05 - 12/05 [facility] PROFILE [address] [place] [address] PARATHYROID Ca Norm WB 1.10 1.05 - 12/05 [facility] PROFILE . [facility] BLOOD BANK RBC product Product available 12/04 [facility] RESULTS (12/05/19 5:53 PM) /[address] [place] [address] HEMATOLOGY Plt Morph See Note 1 Normal 12/04 Result [facility] (12/05/19 5:43 PM) /2019 Comment: Mary Beth forde [facility] Center platelets are seen HEMATOLOGY Anisocyte 1+ None Seen 12/04 [facility] *ABN* /2019 [facility] (12/05/19 5:43 PM) [place] BLOOD BANK RBC product Product available 12/04 [facility] RESULTS (12/05/19 5:21 PM) /2019 [facility] BLOOD BANK Antibody Negative 12/04 [facility] RESULTS Scrn (12/05/19 1:02 AM) /2019 [facility] BLOOD BANK ABO/Rh O POS 12/04 [facility] RESULTS /2019 [facility] BLOOD BANK BB Note Result Note 5 12/04 Result [facility] RESULTS (12/05/19 1:02 AM) /2019 Comment: Medica l 12/05/2019 [place] 15:15 LIPETERS
Blood available, notified Alyx Weston in [place] 2 at 0305 by lp. HEMATOLOGY PT 12.8 12.0 - 12/04 [place] 14.7 [facility] HEMATOLOGY INR 0.96 0.85 - 12/04 [facility] 1.17 /2019 [facility] HEMATOLOGY PTT 28.3 22.9 - 12/04 [facility] 35.8 [facility] CHEM PANEL Glucose Lvl 146 70 - 99 07 [facility] CHEM PANEL BUN 16 7 - 22 07 [facility] CHEM PANEL Creatinine 0.75 0.50 - 11/30 [facility] [place] [facility] 1.40 [facility] CHEM PANEL Sodium Lvl 142 135 - 145 07 [facility]2019 [facility] CHEM PANEL Potassium 3.7 3.5 - 5.1 07/ [facility] [place] [facility] CHEM PANEL Chloride Lvl 106 95 - 109 07 [facility] CHEM PANEL CO2 29 24 - 32 11/30 [facility]2019 [facility] CHEM PANEL Calcium Lvl 8.3 8.5 - 10.5 11/30 [facility] CHEM PANEL AGAP 10.7 10.0 - 11/30 [facility] 20.0 [facility] CHEM PANEL eGFR 80 11/30 [facility] Comment: The Medical eGFR is Center calculated [...] HEMATOLOGY WBC 11.0 3.7 - 10.4 07/ [facility] HEMATOLOGY RBC 4.45 4.20 - 07/ [facility] 5.40 [facility] HEMATOLOGY Hgb 13.7 12.0 - 07/ [facility] 16.0 [facility] HEMATOLOGY Hct 41.0 36.0 - 07/ [facility] 48.0 /[address] [place] [address] HEMATOLOGY MCV 92.1 80.0 - 11/30 [facility] 98.0 /[address] [place] [address] HEMATOLOGY MCH 30.7 27.0 - 07 [facility] 31.0 /2019 [facility] HEMATOLOGY MCHC 33.4 32.0 - / [facility] 36.0 /[address] [place] [address] HEMATOLOGY RDW 16.7 11.5 - 11/30 [facility] 14.5 /[address] [place] [address] HEMATOLOGY Platelet 173 133 - [address] HEMATOLOGY MPV 9.6 7.4 - 10.4 11/[address] HEMATOLOGY Segs 67.9 45.0 - 07 [facility] 75.0 /[address] [place] [address] HEMATOLOGY Lymphocytes 20.7 20.0 - 11/30 [facility] 40.[address] HEMATOLOGY Monocytes 9.8 2.0 - 12.0 11/[address] HEMATOLOGY Eosinophils 0.7 0.0 - 4.0 11/[address] HEMATOLOGY Basophils 0.9 0.0 - 1.0 11/[address] HEMATOLOGY Neutrophils 7.4 1.5 - 8.1 11/[address] HEMATOLOGY Lymphocytes 2.3 1.0 - 5.5 11/[address] HEMATOLOGY Monocytes # 1.1 0.0 - 0.8 11/[address] HEMATOLOGY Eosinophils 0.1 0.0 - 0.5 11/[address] HEMATOLOGY Basophils # 0.1 0.0 - 0.2 11/[address] URINE AND UA Color Light Yellow Yellow 11/30 [facility] STOOL *NA* /[address] [place] [address] (11/30/19 8:14 PM) [place] URINE AND UA Turbidity Clear Clear 11/30 [facility] [place] [facility] (11/30/19 8:14 PM) [address] URINE AND UA Spec Grav 1.012 <=1.030 11/[address] URINE AND UA pH 7.0 5.0 - 8.0 11/[address] URINE AND UA Protein Negative Negative 11/30 [facility] STOOL mg/dL mg/dL /[address] [place] [address] URINE AND UA Ketones 20 mg/dL Negative 11/30 [facility] [place] [facility] mg/dL /[address] [place] [address] URINE AND UA Bili Negative Negative 11/30 [facility] [place] [facility] *NA* /2019 [facility] (11/30/19 8:14 PM) Center URINE AND UA Blood Small Negative 11/30 [facility] [place] [facility] *ABN* /2019 [facility] (11/30/19 8:14 PM) [place] URINE AND UA <1.0 0.1 - 1.0 11/30 [facility] [place] [facility] Urobilinogen /[address] [place] [address] URINE AND UA Nitrite Negative Negative 11/30 [facility] [place] [facility] (11/30/19 8:14 PM) /[address] [place] [address] URINE AND UA Leuk Est Negative Negative 11/30 [facility] [place] [facility] (11/30/19 8:14 PM) /[address] [place] [address] URINE AND UA Sq Epi Occasional Few /LPF 11/30 [facility] [place] [facility] /LPF /[address] [place] [address] URINE AND UA WBC <1 0 - 5 11/[address] URINE AND UA RBC 1 0 - 2 11/[address] URINE AND UA Bacteria Occasional None Seen 11/30 [place] /HPF /HPF /[address] [place] [address] URINE AND UA Mucus Few /LPF None Seen 11/30 [facility] [place] [facility] /LPF /[address] [place] [address] URINE AND UA Glucose 50mg/dl 11/[address] CHEM PANEL Glucose Lvl 116 70 - 99 11/[address] CHEM PANEL BUN 22 7 - 22 11/[address] CHEM PANEL Creatinine 0.83 0.50 - 11/29 [facility] 1.40 /[address] [place] [address] CHEM PANEL Sodium Lvl 140 135 - 145 11/[address] CHEM PANEL Potassium 5.3 3.5 - 5.1 11/29 Result [facility] Comment: Medical Specimen Center Grossly Hemolyzed. CHEM PANEL Chloride Lvl 105 95 - 109 07 [facility] [address] CHEM PANEL CO2 28 24 - 32 11/[address] CHEM PANEL Calcium Lvl 7.8 8.5 - 10.5 11/[address] CHEM PANEL AGAP 12.3 10.0 - 07 [facility] 20.[address] CHEM PANEL eGFR 71 07 Result [place] [id number] Comment: The Medical eGFR is Center calculated [...] HEMATOLOGY WBC 10.6 3.7 - 10.4 07/ [address] HEMATOLOGY RBC 4.40 4.20 - 07 [place] 5.40 /2019 [facility] HEMATOLOGY Hgb 13.0 12.0 - 07 [place] 16.0 /2019 [facility] HEMATOLOGY Hct 40.0 36.0 - 07 [place] 48.0 /2019 [facility] HEMATOLOGY MCV 91.0 80.0 - 07/ [place] 98.0 /2019 [facility] HEMATOLOGY MCH 29.5 27.0 - 07/ [place] 31.0 [facility] HEMATOLOGY MCHC 32.4 32.0 - 07/ [place] 36.0 [facility] HEMATOLOGY RDW 16.5 11.5 - 07/ [place] 14.5 [facility] HEMATOLOGY Platelet 153 133 - 450 07/ [address] HEMATOLOGY MPV 10.0 7.4 - 10.4 / [address] HEMATOLOGY PT 13.3 12.0 - 07/ [place] 14.7 /2019 [facility] HEMATOLOGY INR 1.01 0.85 - 07/ [place] 1.17 [facility] HEMATOLOGY PTT 29.5 22.9 - 07/ [place] 35.8 /2019 [facility] HEMATOLOGY Segs 59.5 45.0 - 07/01 [place] 75.0 /2020 [facility] HEMATOLOGY Lymphocytes 29.2 20.0 - 07/01 [place] 40.0 /2020 [facility] HEMATOLOGY Monocytes 9.3 2.0 - 12.0 11/[address] HEMATOLOGY Eosinophils 1.0 0.0 - 4.0 11/[address] HEMATOLOGY Basophils 1.0 0.0 - 1.0 11/[address] HEMATOLOGY Neutrophils 6.3 1.5 - 8.1 11/[address] HEMATOLOGY Lymphocytes 3.1 1.0 - 5.5 11/29 [facility]2019 [facility] HEMATOLOGY Monocytes # 1.0 0.0 - 0.8 11/[address] HEMATOLOGY Eosinophils 0.1 0.0 - 0.5 11/[address] HEMATOLOGY Basophils # 0.1 0.0 - 0.2 11/[address] BLOOD BANK ABO/Rh O POS 11/28 [facility] RESULTS [address] BLOOD BANK Antibody Negative 11/28 [facility] RESULTS Scrn (11/29/19 4:04 AM) [facility] CHEM PANEL Glucose Lvl 97 70 - 99 11/[address] CHEM PANEL BUN 26 7 - 22 11/[address] CHEM PANEL Creatinine 0.90 0.50 - 11/28 [facility] [place] [facility] 1.40 2019 [facility] CHEM PANEL Sodium Lvl 140 135 - 145 11/[address] CHEM PANEL Potassium 3.9 3.5 - 5.1 11/[address] CHEM PANEL Chloride Lvl 106 95 - 109 11/[address] CHEM PANEL CO2 32 24 - 32 11/[address] CHEM PANEL Calcium Lvl 8.7 8.5 - 10.5 11/[address] CHEM PANEL AGAP 5.9 10.0 - 11/28 [facility] 20.0 2019 [facility] CHEM PANEL eGFR 64 11/28 Result [place] [id number] Comment: The Medical eGFR is Center calculated [...] 13.6 12.0 - 11/28 [place] 14.7 /2019 [facility] HEMATOLOGY INR 1.04 0.85 - 11/28 [place] 1.17 [facility] HEMATOLOGY PTT 30.9 22.9 - 11/28 [place] 35.8 /2019 [facility] HEMATOLOGY WBC 10.6 3.7 - 10.4 11/[address] HEMATOLOGY RBC 4.50 4.20 - 11/28 [place] 5.40 /2019 [facility] HEMATOLOGY Hgb 13.5 12.0 - 11/28 [place] 16.0 /2019 [facility] HEMATOLOGY Hct 40.4 36.0 - 11/28 [place] 48.0 /2019 [facility] HEMATOLOGY MCV 89.8 80.0 - 11/28 [place] 98.0 /2019 [facility] HEMATOLOGY MCH 30.0 27.0 - 11/28 [place] 31.0 /2019 [facility] HEMATOLOGY MCHC 33.4 32.0 - 11/28 [place] 36.0 /2019 [facility] HEMATOLOGY RDW 16.7 11.5 - 11/28 [facility] 14.5 /2019 [facility] HEMATOLOGY Platelet 155 133 - 450 11/[address] HEMATOLOGY MPV 9.5 7.4 - 10.4 11/[address] HEMATOLOGY Segs 65.7 45.0 - 30 [place] 75.0 /[address] [place] [address] HEMATOLOGY Lymphocytes 24.6 20.0 - 30 [place] 40.0 2020 [facility] HEMATOLOGY Monocytes 8.2 2.0 - 12.[address] HEMATOLOGY Eosinophils 0.8 0.0 - 4.0 11/[place] [facility] HEMATOLOGY Basophils 0.7 0.0 - 1.[address] HEMATOLOGY Neutrophils 6.9 1.5 - 8.1 06/30 [facility] # /2019 [facility] HEMATOLOGY Lymphocytes 2.6 1.0 - 5.5 11/28 [facility] # /2019 [facility] HEMATOLOGY Monocytes # 0.9 0.0 - 0.8 11/28 [facility] /2020 [facility] HEMATOLOGY Eosinophils 0.1 0.0 - 0.5 11/28 [facility] # /2019 [facility] HEMATOLOGY Basophils # 0.1 0.0 - 0.2 11/28 [facility] /2019 [facility] IMMUNOLOGY Coronavirus Not Detected Not 11/26 [place] (COVID-19) (11/27/19 4:00 PM) Detected [facility] CHEM PANEL Glucose Lvl 137 70 - 99 11/[address] CHEM PANEL BUN 24 7 - 22 11/[address] CHEM PANEL Creatinine 0.60 0.50 - 11/26 [facility] Lvl 1.40 [facility] CHEM PANEL Sodium Lvl 143 135 - 145 11/[address] CHEM PANEL Potassium 3.4 3.5 - 5.1 11/26 [facility] [place] [facility] /[address] [place] [address] CHEM PANEL Chloride Lvl 107 95 - 109 11/26 [facility] CHEM PANEL CO2 29 24 - 32 11/[address] CHEM PANEL Calcium Lvl 8.3 8.5 - 10.5 11/26 [facility] /2019 [facility] CHEM PANEL AGAP 10.4 10.0 - 11/26 [facility] 20.0 [facility] CHEM PANEL eGFR 91 11/26 Result [...] HEMATOLOGY WBC 10.2 3.7 - 10.4 11/[address] HEMATOLOGY RBC 4.57 4.20 - 11/26 [facility] 5.40 [facility] HEMATOLOGY Hgb 13.6 12.0 - 11/26 [facility] 16.0 [facility] HEMATOLOGY Hct 41.4 36.0 - 11/26 [facility] 48.0 2019 [facility] HEMATOLOGY MCV 90.4 80.0 - 11/26 [facility] 98.0 [facility] HEMATOLOGY MCH 29.8 27.0 - 11/26 [facility] 31.0 [facility] HEMATOLOGY MCHC 32.9 32.0 - 11/26 [facility] 36.0 2019 [facility] HEMATOLOGY RDW 16.7 11.5 - 11/26 [facility] 14.5 2019 [facility] HEMATOLOGY Platelet 146 133 - 450 11/[address] HEMATOLOGY MPV 9.8 7.4 - 10.4 11/[address] LIPIDS Trig 167 <=149 11/24 [facility] mg/dL [address] LIPIDS Chol 151 <=199 11/24 [facility] mg/dL [address] LIPIDS HDL 50 >=61 mg/dL 11/[address] LIPIDS CHD Risk 3.02 3.90 - 11/24 [facility] 5.[address] LIPIDS LDL 68 <=99 mg/dL 11/24 [facility] (Calculated) [address] LIPIDS VLDL 33 11/[address] SPECIAL Hgb A1C 8.5 <=5.6 % 11/24 [facility] CHEMISTRY [address] HEMATOLOGY Anti-Xa Low 0.45 11/24 [facility] Molecular [address] [facility] CHEM PANEL Glucose Lvl 132 70 - 99 11/[address] CHEM PANEL BUN 19 7 - 22 11/[address] CHEM PANEL Creatinine 0.76 0.50 - 11/23 [facility] Lvl 1.[address] [place] [address] CHEM PANEL Sodium Lvl 141 135 - 145 11/[address] CHEM PANEL Potassium 3.7 3.5 - 5.1 11/23 [facility] /[address] [place] [address] CHEM PANEL Chloride Lvl 108 95 - 109 11/23 [facility] CHEM PANEL CO2 27 24 - 32 11/[address] CHEM PANEL AGAP 9.7 10.0 - 11/23 [facility] 20.0 [facility] CHEM PANEL Calcium Lvl 8.7 8.5 - 10.5 11/23 [facility] CHEM PANEL eGFR 79 11/23 Result [...] 45.0 - 11/23 [facility] 75.0 [facility] HEMATOLOGY Lymphocytes 6.4 20.0 - 11/23 [facility] 40.0 [facility] HEMATOLOGY Monocytes 2.1 2.0 - 12.0 11/[address] HEMATOLOGY Eosinophils 0.3 0.0 - 4.0 11/23 [facility] /2019 [facility] HEMATOLOGY Basophils 0.5 0.0 - 1.0 11/[address] HEMATOLOGY Neutrophils 15.1 1.5 - 8.1 11/23 [facility] # [facility] HEMATOLOGY Lymphocytes 1.1 1.0 - 5.5 11/23 [facility] # /2019 [facility] HEMATOLOGY Monocytes # 0.3 0.0 - 0.8 11/23 [facility] [address] HEMATOLOGY Basophils # 0.1 0.0 - 0.2 11/23 [facility] /2019 [facility] HEMATOLOGY WBC 16.7 3.7 - 10.4 11/[address] HEMATOLOGY RBC 5.00 4.20 - 11/23 [place] 5.40 [facility] HEMATOLOGY Hgb 15.1 12.0 - 11/23 [facility] 16.0 [facility] HEMATOLOGY Hct 45.1 36.0 - 11/23 [facility] 48.0 [facility] HEMATOLOGY MCV 90.2 80.0 - 11/23 [facility] 98.0 [facility] HEMATOLOGY MCH 30.1 27.0 - 11/23 [facility] 31.0 [facility] HEMATOLOGY MCHC 33.4 32.0 - 11/23 [facility] 36.0 [facility] HEMATOLOGY RDW 16.3 11.5 - 11/23 [facility] 14.5 [facility] HEMATOLOGY Platelet 148 133 - 450 11/23 [facility]2019 [facility] HEMATOLOGY MPV 9.6 7.4 - 10.4 11/[address] CHEM PANEL Glucose Lvl 375 70 - 99 11/[address] CHEM PANEL BUN 18 7 - 22 11/[address] CHEM PANEL Creatinine 0.96 0.50 - 11/22 [facility] Lvl 1.40 [facility] CHEM PANEL Sodium Lvl 137 135 - 145 11/[address] CHEM PANEL Potassium 4.3 3.5 - 5.1 11/22 [facility] /2019 [facility] CHEM PANEL Chloride Lvl 105 95 - 109 11/22 [facility] CHEM PANEL CO2 26 24 - 32 11/[address] CHEM PANEL AGAP 10.3 10.0 - 11/22 [facility] 20.0 [facility] CHEM PANEL Calcium Lvl 8.8 8.5 - 10.5 11/22 [facility] as [facility] CHEM PANEL eGFR 59 11/22 [facility] Comment: The Medical eGFR is Center calculated [...] 81.3 45.0 - 11/22 [place] 75.0 /2019 [facility] HEMATOLOGY Lymphocytes 11.5 20.0 - 11/22 [place] 40.0 /2019 [facility] HEMATOLOGY Monocytes 5.4 2.0 - 12.0 11/[address] HEMATOLOGY Eosinophils 0.8 0.0 - 4.0 11/[address] HEMATOLOGY Basophils 1.0 0.0 - 1.0 11/[address] HEMATOLOGY Neutrophils 15.8 1.5 - 8.1 11/[place] # /2020 [facility] HEMATOLOGY Lymphocytes 2.2 1.0 - 5.5 11/22 [facility] # /[address] [place] [address] HEMATOLOGY Monocytes # 1.1 0.0 - 0.8 11/22 [facility] /[address] [place] [address] HEMATOLOGY Eosinophils 0.2 0.0 - 0.5 11/22 [facility] # /[address] [place] [address] HEMATOLOGY Basophils # 0.2 0.0 - 0.2 11/22 [facility] /[address] [place] [address] HEMATOLOGY WBC 19.4 3.7 - 10.4 11/[address] HEMATOLOGY RBC 5.40 4.20 - 11/22 [place] 5.40 /2019 [facility] HEMATOLOGY Hgb 16.1 12.0 - 11/22 [place] 16.0 /2019 [facility] HEMATOLOGY Hct 49.1 36.0 - 11/22 [place] 48.0 /2019 [facility] HEMATOLOGY MCV 91.0 80.0 - 11/22 [place] 98.0 /2019 [facility] HEMATOLOGY MCH 29.9 27.0 - 11/22 [place] 31.0 /2019 [facility] HEMATOLOGY MCHC 32.9 32.0 - 11/22 [place] 36.0 /2020 [facility] HEMATOLOGY RDW 16.7 11.5 - 11/22 [place] 14.5 /2019 [facility] HEMATOLOGY Platelet 168 133 - 450 11/[address] HEMATOLOGY MPV 9.8 7.4 - 10.4 11/[address] CARDIAC Troponin-I 0.04 0.00 - 11/22 [facility] ENZYMES 0.40 [facility] CHEM PANEL Lactic Acid 1.7 0.5 - 2.2 11/[address] IMMUNOLOGY Coronavirus Not Detected Not 11/21 [place] (COVID-19) (11/22/19 11:05 AM) Detected /2019 [facility] CHEM PANEL Lactic Acid 2.6 0.5 - 2.2 11/21 [facility]2019 [facility] URINE AND UA Color Veronique Yellow 11/21 [facility] STOOL *ABN* /2019 [facility] (11/22/19 7:20 AM) [place] URINE AND UA Turbidity Slight Clear 11/21 [facility] *ABN* /[address] [place] [address] (11/22/19 7:20 AM) [place] URINE AND UA Spec Grav 1.035 <=1.030 11/[address] URINE AND UA pH 5.0 5.0 - 8.0 11/[address] URINE AND UA Protein 30 mg/dL Negative 11/21 [facility] STOOL mg/dL /[address] [place] [address] URINE AND UA Ketones Negative Negative 11/21 [facility] mg/dL mg/dL /[address] [place] [address] URINE AND UA Bili Negative Negative 11/21 [facility] STOOL *NA* /2019 [facility] (11/22/19 7:20 AM) [place] URINE AND UA Blood Negative Negative 11/21 [facility] (11/22/19 7:20 AM) [facility] URINE AND UA 2.0 0.1 - 1.0 11/21 [facility] Urobilinogen /[address] [place] [address] URINE AND UA Nitrite Negative Negative 11/21 [facility] (11/22/19 7:20 AM) [facility] URINE AND UA Leuk Est Negative Negative 11/21 [facility] (11/22/19 7:20 AM) [facility] URINE AND UA WBC 1 0 - 5 11/21 [facility] /[address] [place] [address] URINE AND UA RBC 7 0 - 2 11/[address] URINE AND UA Mucus Few /LPF None Seen 11/21 [facility] STOOL /LPF /[address] [place] [address] URINE AND UA Hyal Cast 4 0 - 2 11/21 [facility] URINE AND UA Sq Epi None Seen 11/21 [facility] URINE AND UA Glucose 50mg/dl 11/21 [facility]2019 [facility] HEMATOLOGY PT 12.4 12.0 - 11/21 [facility] 14.7 [facility] HEMATOLOGY INR 0.92 0.85 - 11/21 [facility] 1.17 [facility] HEMATOLOGY PTT 25.1 22.9 - 11/21 [place] 35.8 [facility] HEMATOLOGY ACT (TEG) 89 86 - 118 11/21 [facility]2019 [facility] HEMATOLOGY [place] 0.3 11/21 [facility]2019 [facility] HEMATOLOGY R-time Rapid 0.4 0.4 - 0.7 11/21 [facility] HEMATOLOGY K-time Rapid 1.3 0.6 - 2.3 11/21 [facility]2019 [facility] HEMATOLOGY Angle Rapid 75 64 - 80 11/[address] HEMATOLOGY Max 64 52 - 71 11/21 [facility] HEMATOLOGY G-value 9.0 5.0 - 11.6 11/21 [facility] HEMATOLOGY Estimated % 0.0 0.0 - 7.5 11[place] [facility] HEMATOLOGY RBC Morph Normal Normal 11/21 [facility] (11/22/19 6:40 AM) [facility] HEMATOLOGY Plt Morph Normal Normal 11/21 [facility] (11/22/19 6:40 AM) /2019 [facility] HEMATOLOGY Segs 77.5 45.0 - 11/21 [facility] 75.0 [facility] HEMATOLOGY Lymphocytes 14.2 20.0 - 11/21 [place] 40.0 [facility] HEMATOLOGY Monocytes 6.8 2.0 - 12.0 11/[address] HEMATOLOGY Eosinophils 0.2 0.0 - 4.0 [place] [facility] HEMATOLOGY Basophils 1.3 0.0 - 1.0 11/[address] HEMATOLOGY Neutrophils 16.9 1.5 - 8.1 11/[place] # /2019 [facility] HEMATOLOGY Lymphocytes 3.1 1.0 - 5.5 11/[place] # /2019 [facility] HEMATOLOGY Monocytes # 1.5 0.0 - 0.8 11/21 [facility] /[address] [place] [address] HEMATOLOGY Eosinophils 0.1 0.0 - 0.5 11/21 [facility] # [facility] HEMATOLOGY Basophils # 0.3 0.0 - 0.2 11/21 [facility] [address] HEMATOLOGY Large Plt Slight 11/[address] BLOOD BANK ABO/Rh O POS 11/21 [facility] RESULTS /[address] [place] [address] BLOOD BANK Antibody Negative 11/21 [facility] RESULTS Scrn (11/22/19 5:56 AM) [facility] CARDIAC Total CK 840 12 - 191 11/21 [facility] ENZYMES /[address] [place] [address] CARDIAC Troponin-I 0.05 0.00 - 11/21 [facility] ENZYMES 0.40 [facility] CHEM PANEL Total 5.8 6.4 - 8.4 11/21 [facility] Protein [address] CHEM PANEL Albumin Lvl 2.4 3.5 - 5.0 11/21 [facility] [address] CHEM PANEL ASPARTATE 355 0 - 37 11/21 [facility] TRANSAMINASE [address] CHEM PANEL Alk Phos 102 39 - 136 11/[address] CHEM PANEL Bili Total 1.2 0.2 - 1.3 11/[address] CHEM PANEL Bili Direct 0.3 0.0 - 0.3 11/[address] CHEM PANEL Bili 0.9 0.0 - 1.0 11/21 [facility] Indirect [address] CHEM PANEL Globulin 3.4 2.7 - 4.2 11/[address] CHEM PANEL A/G Ratio 0.7 0.7 - 1.6 11/[address] CHEM PANEL ALT 155 0 - 65 11/[address] HEMATOLOGY Segs 60.1 45.0 - 03/04 [place] 75.0 [facility] HEMATOLOGY Lymphocytes 32.3 20.0 - 10 [place] 40.0 [facility] HEMATOLOGY Monocytes 5.9 2.0 - 12.0 03/[address] HEMATOLOGY Eosinophils 0.7 0.0 - 4.0 03/[address] HEMATOLOGY Basophils 1.0 0.0 - 1.0 03/[address] HEMATOLOGY Neutrophils 4.3 1.5 - 8.1 03/04 [place] # /2019 [facility] HEMATOLOGY Lymphocytes 2.3 1.0 - 5.5 03/04 [place] # /2019 [facility] HEMATOLOGY Monocytes # 0.4 0.0 - 0.8 03/04 [place]2018 [facility] HEMATOLOGY Basophils # 0.1 0.0 - 0.2 03/04 [facility] /2018 [facility] HEMATOLOGY Sed Rate 2 0 - 20 03/04 [facility] HEMATOLOGY WBC 7.2 3.7 - 10.4 03/04 [facility] HEMATOLOGY RBC 3.76 4.20 - 03/04 [place] 5.40 /2019 [facility] HEMATOLOGY Hgb 12.1 12.0 - 03/04 [place] 16.0 2019 [facility] HEMATOLOGY Hct 36.8 36.0 - 03/04 [facility] 48.0 2019 [facility] HEMATOLOGY MCV 97.9 80.0 - 03/04 [facility] 98.0 /2019 [facility] HEMATOLOGY MCH 32.1 27.0 - 03/04 [place] 31.0 /2019 [facility] HEMATOLOGY MCHC 32.8 32.0 - 03/04 [place] 36.0 2019 [facility] HEMATOLOGY RDW 16.7 11.5 - 03/04 [place] 14.5 2019 [facility] HEMATOLOGY Platelet 131 133 - 450 03/04 [facility] HEMATOLOGY MPV 8.9 7.4 - 10.4 03/04 [facility] IMMUNOLOGY C-REACTIVE <2.9 <=2.9 mg/L 03/04 [place] [facility] BLOOD BANK ABO/Rh O POS 02/26 [facility] RESULTS /2018 [facility] BLOOD BANK Antibody Negative 02/26 [facility] RESULTS Scrn (02/26/19 7:49 AM) [facility] HEMATOLOGY Segs 67.8 45.0 - 02/25 [place] 75.0 /2019 [facility] HEMATOLOGY Lymphocytes 22.9 20.0 - 02/25 [place] 40.0 2019 [facility] HEMATOLOGY Monocytes 7.8 2.0 - 12.0 02/25 [facility] HEMATOLOGY Eosinophils 0.4 0.0 - 4.0 02/[place] [facility] HEMATOLOGY Basophils 1.1 0.0 - 1.0 02/25 [place] [facility] HEMATOLOGY Neutrophils 6.3 1.5 - 8.1 02/25 [place] # /2018 [facility] HEMATOLOGY Lymphocytes 2.1 1.0 - 5.5 02/25 [place] # /2018 [facility] HEMATOLOGY Monocytes # 0.7 0.0 - 0.8 02/25 [facility] HEMATOLOGY Basophils # 0.1 0.0 - 0.2 02/25 [facility] HEMATOLOGY Macrocyte 1+ None Seen 02/25 [facility] *ABN* /2018 [facility] (02/25/19 4:11 AM) [place] HEMATOLOGY WBC 9.2 3.7 - 10.4 02/25 [facility] HEMATOLOGY RBC 3.50 4.20 - 02/25 [facility] 5.40 [facility] HEMATOLOGY Hgb 11.5 12.0 - 02/25 [facility] 16.0 [facility] HEMATOLOGY Hct 35.5 36.0 - 02/25 [facility] 48.0 [facility] HEMATOLOGY MCV 101.5 80.0 - 02/25 [facility] 98.0 [facility] HEMATOLOGY MCH 32.7 27.0 - 02/25 [facility] 31.0 [facility] HEMATOLOGY MCHC 32.2 32.0 - 02/25 [facility] 36.0 [facility] HEMATOLOGY RDW 17.4 11.5 - 02/25 [facility] 14.5 [facility] HEMATOLOGY Platelet 120 133 - 450 02/25 [facility] HEMATOLOGY MPV 9.2 7.4 - 10.4 02/25 [facility] CHEM PANEL Glucose Lvl 143 70 - 99 02/22 [facility] CHEM PANEL BUN 20 7 - 22 02/22 [facility] CHEM PANEL Creatinine 0.89 0.50 - 02/22 [facility] Lvl 1.40 [facility] CHEM PANEL Sodium Lvl 143 135 - 145 02/22 [facility]2018 [facility] CHEM PANEL Potassium 4.3 3.5 - 5.1 02/22 [facility] [place] [facility] CHEM PANEL Chloride Lvl 107 95 - 109 02/22 [facility] CHEM PANEL CO2 27 24 - 32 02/22 [facility]2018 [facility] CHEM PANEL AGAP 13.3 10.0 - 02/22 [facility] 20.0 [facility] CHEM PANEL Calcium Lvl 8.9 8.5 - 10.5 02/22 [facility] CHEM PANEL eGFR 65 02/22 Result [...] Segs 63.7 45.0 - 02/22 [place] 75.0 [facility] HEMATOLOGY Lymphocytes 26.8 20.0 - 02/22 [place] 40.0 [facility] HEMATOLOGY Monocytes 8.0 2.0 - 12.0 02/22 [facility] HEMATOLOGY Eosinophils 0.4 0.0 - 4.0 02/22 [facility] HEMATOLOGY Basophils 1.1 0.0 - 1.0 02/22 [facility] HEMATOLOGY Neutrophils 6.4 1.5 - 8.1 02/22 [facility] # [facility] HEMATOLOGY Lymphocytes 2.7 1.0 - 5.5 02/22 [facility] # [facility] HEMATOLOGY Monocytes # 0.8 0.0 - 0.8 02/22 [facility] HEMATOLOGY Basophils # 0.1 0.0 - 0.2 02/22 [facility] HEMATOLOGY WBC 10.1 3.7 - 10.4 02/22 [facility] HEMATOLOGY RBC 3.93 4.20 - 02/22 [place] 5.40 [facility] HEMATOLOGY Hgb 12.7 12.0 - 02/22 [place] 16.0 [facility] HEMATOLOGY Hct 38.8 36.0 - 02/22 [facility] [place] 48.0 /2019 [facility] HEMATOLOGY MCV 98.9 80.0 - 02/22 98.0 [facility] HEMATOLOGY MCH 32.4 27.0 - 02/22 31.0 [facility] HEMATOLOGY MCHC 32.7 32.0 - 02/22 36.0 [facility] HEMATOLOGY RDW 17.3 11.5 - 02/22 14.5 [facility] HEMATOLOGY Platelet 189 133 - 450 02/22 [facility] HEMATOLOGY MPV 9.8 7.4 - 10.4 02/22 [facility] CHEM PANEL Glucose Lvl 95 70 - 99 02/21 [facility] CHEM PANEL BUN 18 7 - 22 02/21 [facility] CHEM PANEL Creatinine 0.77 0.50 - 02/21 [facility] Lvl 1.40 [facility] CHEM PANEL Sodium Lvl 143 135 - 145 02/21 [facility] CHEM PANEL Potassium 4.1 3.5 - 5.1 02/21 Result [facility] [place] [facility] Comment: [facility] Slightly Hemolyzed. CHEM PANEL Chloride Lvl 109 95 - 109 02/21 [facility] CHEM PANEL CO2 26 24 - 32 02/21 [facility] CHEM PANEL Calcium Lvl 8.5 8.5 - 10.5 02/21 [place] [facility] CHEM PANEL eGFR 78 02/21 Result Comment: [facility] eGFR is Center calculated using [...] 10.0 - 02/21 [facility] 20.0 [facility] CHEM PANEL Magnesium 2.0 1.8 - 2.4 02/[address] CHEM PANEL Phosphorus 3.5 2.5 - 4.5 02/[address] ELECTROLYTE AGAP 11.1 10.0 - 02/19 [facility] 20.0 [facility] ELECTROLYTE Glucose Lvl 73 70 - 99 02/[address] ELECTROLYTE BUN 21 7 - 22 02/[address] ELECTROLYTE Creatinine 0.66 0.50 - 02/19 [facility] Lvl 1.40 [facility] ELECTROLYTE Sodium Lvl 140 135 - 145 02/19 [facility]2018 [facility] ELECTROLYTE Potassium 4.1 3.5 - 5.1 02/[address] ELECTROLYTE Chloride Lvl 107 95 - 109 02/19 [facility]2018 [facility] ELECTROLYTE CO2 26 24 - 32 02/[address] ELECTROLYTE Calcium Lvl 8.6 8.5 - 10.5 02/19 [place] [facility]2018 [facility] ELECTROLYTE Albumin Lvl 2.1 3.5 - 5.0 02/19 [facility]2018 [facility] ELECTROLYTE Phosphorus 3.0 2.5 - 4.5 02/[address] ELECTROLYTE eGFR 88 02/19 [facility] Comment: The Medical eGFR is Center [...] HEMATOLOGY Eosinophils 0.1 0.0 - 0.5 02/19 [facility] CHEM PANEL Magnesium 2.4 1.8 - 2.4 02/[address] CHEM PANEL Phosphorus 5.0 2.5 - 4.5 02/[address] HEMATOLOGY Bands 0.0 0.0 - 11.0 02/[address] HEMATOLOGY Myelocytes 2.0 <=0.0 % 02/[address] HEMATOLOGY Atypical 0.0 <=0.0 % 02/[address] HEMATOLOGY NRBC 1 02/[address] HEMATOLOGY Plt Morph Normal Normal 02/18 [facility] (02/18/19 3:45 AM) 2018 [facility] HEMATOLOGY Macrocyte 1+ None Seen [facility] (02/18/19 3:45 AM) [place] HEMATOLOGY Polychrom Slight 02/[address] TOXICOLOGY Vanco Tr 18.8 02/[address] TOXICOLOGY Vanco Tr TND 2200 02/[address] HEMATOLOGY Bands 1.0 0.0 - 11.0 02/[address] HEMATOLOGY Metamyelocyt 2.0 0.0 - 1.0 02/[address] HEMATOLOGY Myelocytes 3.0 <=0.0 % 02/[address] HEMATOLOGY Atypical 0.0 <=0.0 % 02/[address] HEMATOLOGY Eosinophils 0.2 0.0 - 0.5 02/15 [facility] [address] [place] [address] HEMATOLOGY Bands 0.0 0.0 - 11.0 02/[address] HEMATOLOGY Metamyelocyt 1.0 0.0 - 1.0 02/[address] HEMATOLOGY Myelocytes 1.0 <=0.0 % 02/[address] HEMATOLOGY Atypical 0.0 <=0.0 % 02/[address] HEMATOLOGY Anisocyte 2+ None Seen 02/[facility] (02/15/19 11:09 AM) Cente r HEMATOLOGY Macrocyte 1+ None Seen 02/15 [facility] *ABN* /2019 [facility] (02/15/19 11:09 AM) Cente r HEMATOLOGY Eosinophils 0.4 0.0 - 0.5 02/13 [place] # /2018 [facility] HEMATOLOGY Anisocyte 1+ None Seen 02/13 [facility] *ABN* /2018 Medical (02/13/19 5:40 AM) Center HEMATOLOGY Polychrom Slight 02/13 [facility] HEMATOLOGY Large Plt Slight 02/13 [facility] IMMUNOLOGY C-REACTIVE 96.6 <=2.9 mg/L 02/12 [facility] PROTEIN [facility] CHEM PANEL Lactic Acid 1.6 0.5 - 2.2 02/12 [facility] Lvl [facility] CHEM PANEL Lactic Acid 2.4 0.5 - 2.2 02/12 [facility] Lvl [facility] HEMATOLOGY Polychrom Slight 02/12 [facility] HEMATOLOGY Large Plt Slight 02/12 [facility] TOXICOLOGY Vanco Lvl 12.1 02/12 [facility] [address] [place] [address] TRIMETHOPRI Gram Stain Gram Stain 02/11 [facility] M+SULFAMETH Report Performed Medical OXAZOLE:DESIRAE By: Center C:PT:ISOLAT [facility] E:ORDQN:MARIA TERESA [facility] TRIMETHOPRI Culture: Rare Proteus mirabilis 02/11 [facility] M+SULFAMETH Wound/Absces Many Enterococcus Species /2018 Medical OXAZOLE:DESIRAE s w/Gram Moderate Staphylococcus aureus Center C:PT:ISOLAT Stain Upon Supplemental Testing, This Isolate Was Found To Be E:ORDQN:MARIA TERESA 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 TRIMETHOPRI Staphylococc Staphyloco 02/11 [facility] exas M+SULFAMETH us aureus ccus /2018 Medical OXAZOLE:DESIRAE aureus Center C:PT:ISOLAT E:ORDQN:MARIA TERESA TRIMETHOPRI Enterococcus Enterococc 02/11 [facility] [place] M+SULFAMETH Species us Species /2019 Medical OXAZOLE:DESIRAE Center C:PT:ISOLAT E:ORDQN:MARIA TERESA TRIMETHOPRI Proteus Proteus 02/[address] [facility] [place]+SULFAMETH mirabilis mirabilis /2019 Medical OXAZOLE:DESIRAE Center C:PT:ISOLAT E:ORDQN:MARIA TERESA TOXICOLOGY Vanco Lvl 14.3 02/10 [facility] CHEM PANEL Lactic Acid 1.6 0.5 - 2.2 02/10 [place] [facility] CHEM PANEL Magnesium 2.1 1.8 - 2.4 02/09 [facility] [place] [facility] HEMATOLOGY RBC Morph Normal Normal 02/09 [facility] (02/09/19 9:04 AM) [facility] HEMATOLOGY Plt Morph Normal Normal 02/09 [facility] (02/09/19 9:04 AM) [facility] PARATHYROID Ca Ion WB 1.06 1.05 - 02/09 [place] PROFILE 1. [facility] PARATHYROID Ca Norm WB 1.04 1.05 - 02/09 [facility] PROFILE . [facility] URINE AND UA Color Yellow Yellow 02/08 [facility] *NA* /2018 [facility] (02/08/19 3:55 AM) [place] URINE AND UA Turbidity Marked Clear 02/08 [facility] *ABN* [facility] (02/08/19 3:55 AM) [place] URINE AND UA Spec Grav 1.022 <=1.030 02/08 [facility] /2018 [facility] URINE AND UA pH 5.0 5.0 - 8.0 02/08 [facility] /2018 [facility] URINE AND UA Protein 100 mg/dL Negative 02/08 [facility] mg/dL [facility] URINE AND UA Glucose 500 mg/dL Negative 02/08 [facility] mg/dL [facility] URINE AND UA Ketones Negative Negative 02/08 [facility] mg/dL mg/dL [facility] URINE AND UA Bili Negative Negative 02/08 [facility] *NA* [facility] (02/08/19 3:55 AM) [place] URINE AND UA Blood Negative Negative 02/08 [facility] (02/08/19 3:55 AM) [facility] URINE AND UA <1.0 0.1 - 1.0 02/08 [facility] Urobilinogen /2018 [facility] URINE AND UA Nitrite Negative Negative 02/08 [facility] (02/08/19 3:55 AM) [facility] URINE AND UA Leuk Est Negative Negative 02/08 [facility] (02/08/19 3:55 AM) [facility] URINE AND UA Sq Epi Occasional Few /LPF 02/08 [facility] STOOL /LPF /2018 [facility] URINE AND UA WBC 13 0 - 5 02/08 [facility] STOOL /2018 [facility] URINE AND UA RBC 4 0 - 2 02/08 [facility] STOOL [facility] URINE AND UA Bacteria Occasional None Seen 02/[place] /HPF /HPF /2018 [facility] URINE AND UA Mucus Few /LPF None Seen 02/08 [facility] STOOL /LPF [address] [place] [address] URINE AND UA Hyal Cast 5 0 - 2 02/08 [facility] STOOL /2018 [facility] URINE AND UA Gran Cast 3-5 /LPF None Seen 02/08 [place] STOOL /LPF [facility] URINE CHEM U Sodium 30 02/08 [facility] URINE CHEM U Creatinine 135.00 02/08 [facility] [address] [place] [address] Culture: 10,000 - 02/08 [facility] Urine 50,000 [facility] CFU/mL Center Skin Era CARDIAC Troponin-I <0.02 0.00 - 02/08 [facility] ENZYMES 0.40 [facility] HEMATOLOGY Sed Rate 95 0 - 20 02/08 [facility] /2018 [facility] IMMUNOLOGY C-REACTIVE 81.9 <=2.9 mg/L 02/08 [place] PROTEIN [facility] PARATHYROID Ca Ion WB 1.19 1.05 - 02/08 [place] PROFILE 1. [facility] PARATHYROID Ca Norm WB 1.17 1. - 02/08 [facility] PROFILE . [facility] CHEM PANEL Osmolality 314 280 - 300 02/[address] URINE AND UA Ketones Trace Negative 02/08 [facility] STOOL mg/dL mg/dL [facility] PARATHYROID Ca Ion WB 1.08 1.05 - 02/07 [place] PROFILE . [facility] PARATHYROID Ca Norm WB 1.09 1.05 - 02/07 [facility] PROFILE . [facility] ANEMIA Vitamin B12 538 254 - 1320 02/06 [facility] STUDY Lvl /2018 [facility] ANEMIA Folate Lvl 16.9 >=3.0 02/06 [facility] STUDY ng/mL [facility] CHEM PANEL Ammonia 13.0 <=45.0 02/06 [facility] uMol/L /2018 [facility] CHEM PANEL VITAMIN B1 172.6 66.5 - 02/06 Result [facility] (THIAMINE) 200.0 Comment: This Medical WHOLE BLOOD test was Center developed and its performance characteristi cs
determ ined by [facility]. It has not been cleared or
approv ed by the Food and Drug Administratio n.
Perfor med At: BN [facility] [place]
[address] [place], [place] [id number]<br/ >Kosta Tucker MD Ph:[phone] IMMUNOLOGY Homocyst Tot 17.3 0.0 - 15.0 02/06 [place] [facility] IMMUNOLOGY MMA Qnt 179 0 - 378 02/[address] SPECIAL Hgb A1C 8.5 <=5.6 % 02/06 [facility] CHEMISTRY /2018 [facility] CARDIAC Troponin-I 0.03 0.00 - 02/05 [facility] ENZYMES 0.40 [facility] CARDIAC Total CK 200 12 - 191 02/05 [facility] ENZYMES [address] CARDIAC CK MB 1.5 0.5 - 3.6 02/05 [facility] ENZYMES [address] CARDIAC CK MB Index 0.8 0.0 - 2.5 02/05 [facility] ENZYMES [address] CHEM PANEL B/C Ratio 16 6 - 25 02/[address] CHEM PANEL Total 6.4 6.4 - 8.4 02/05 [facility] Protein [facility] CHEM PANEL Albumin Lvl 2.2 3.5 - 5.0 02/05 [place] [facility] CHEM PANEL Globulin 4.2 2.7 - 4.2 02/[address] CHEM PANEL A/G Ratio 0.5 0.7 - 1.6 02/[address] CHEM PANEL AST 184 0 - 37 02/[address] CHEM PANEL Alk Phos 330 39 - 136 02/[address] CHEM PANEL Bili Total 0.6 0.2 - 1.3 02/[address] CHEM PANEL ALT 103 0 - 65 02/[address] CHEM PANEL Vitamin D, 6.5 30.0 - 02/05 [facility] 25-OH, Total 100.0 [facility] URINE AND UA Color Dark Yellow Yellow 02/05 [facility] STOOL *NA* /2018 [facility] (02/05/19 2:43 PM) [place] URINE AND UA Turbidity Marked Clear 02/05 [facility] STOOL *ABN* /2018 [facility] (02/05/19 2:43 PM) Center URINE AND UA Spec Grav 1.022 <=1.030 02/05 [facility] STOOL /2018 [facility] Center URINE AND UA pH 6.0 5.0 - 8.0 02/05 [facility] STOOL /2018 [facility] Center URINE AND UA Protein 100 mg/dL Negative 02/05 [facility] STOOL mg/dL /2018 [facility] URINE AND UA Glucose 500 mg/dL Negative 02/05 [facility] STOOL mg/dL /2018 [facility] Center URINE AND UA Ketones Trace Negative 02/05 [facility] STOOL mg/dL mg/dL /2018 [facility] URINE AND UA Bili Negative Negative 02/05 [facility] STOOL *NA* /2018 [facility] (02/05/19 2:43 PM) Center URINE AND UA Blood Negative Negative 02/05 [facility] (02/05/19 2:43 PM) /2018 [facility] URINE AND UA 2.0 0.1 - 1.0 02/05 [facility] Urobilinogen /2018 [facility] URINE AND UA Nitrite Negative Negative 02/05 [facility] STOOL (02/05/19 2:43 PM) /2018 [facility] URINE AND UA Leuk Est Negative Negative 02/05 [facility] (02/05/19 2:43 PM) /2018 [facility] URINE AND UA Sq Epi Occasional Few /LPF 02/05 [facility] STOOL /LPF [facility] URINE AND UA WBC 4 0 - 5 02/05 [facility] STOOL /2018 [facility] URINE AND UA RBC 2 0 - 2 02/05 [facility] /2018 [facility] URINE AND UA Bacteria Few /HPF None Seen 02/05 [place]OL /HPF /2018 [facility] Center URINE AND UA Mucus Few /LPF None Seen 02/05 [place] STOOL /LPF /2019 [facility] URINE AND UA Uric Ac Many /HPF None Seen 02/05 [place] ST[place] /HPF /2018 [facility] HEMATOLOGY Neutrophils 12.0 1.5 - 8.1 01/09 [place] # /2019 [facility] Center HEMATOLOGY Lymphocytes 2.2 1.0 - 5.5 01/09 [place] # /2019 [facility] Center HEMATOLOGY Monocytes # 0.8 0.0 - 0.8 01/09 [place] /2019 [facility] HEMATOLOGY Segs 78.0 45.0 - 01/09 [place] 75.0 /2018 [facility] HEMATOLOGY Bands 0.0 0.0 - 11.0 01/09 [facility] HEMATOLOGY Lymphocytes 14.0 20.0 - 01/09 [place] 40.0 [facility] HEMATOLOGY Monocytes 5.0 2.0 - 12.0 01/09 [facility]2018 [facility] HEMATOLOGY Metamyelocyt 1.0 0.0 - 1.0 01/09 [place] [facility] HEMATOLOGY Myelocytes 2.0 <=0.0 % 01/09 [facility] HEMATOLOGY Atypical 0.0 <=0.0 % 01/09 [facility] Lymphs [facility] HEMATOLOGY NRBC 3 01/09 [facility] H[facility]OLOGY Anisocyte 1+ None [facility] (01/09/19 5:01 AM) [place] HEMATOLOGY Macrocyte 1+ None Seen 01/09 [facility]* [facility] (01/09/19 5:01 AM) [place] HEMATOLOGY Polychrom Moderate None Seen 01/09 [facility]* [facility] (01/09/19 5:01 AM) [place] HEMATOLOGY Large Plt slight 01/09 [facility] HEMATOLOGY WBC 15.4 3.7 - 10.4 01/09 [facility] HEMATOLOGY RBC 2.79 4.20 - 01/09 [facility] 5.40 [facility] HEMATOLOGY Hgb 9.6 12.0 - 01/09 [facility] 16.0 [facility] HEMATOLOGY Hct 29.3 36.0 - 01/09 [facility] 48.0 [facility] HEMATOLOGY MCV 104.8 80.0 - 01/09 [facility] 98.0 [facility] HEMATOLOGY MCH 34.5 27.0 - 01/09 [place] 31.0 2019 [facility] HEMATOLOGY MCHC 32.9 32.0 - 01/09 [place] 36.0 [facility] HEMATOLOGY RDW 22.7 11.5 - 01/09 [facility] 14.5 [facility] HEMATOLOGY Platelet 119 133 - 450 01/09 [facility]2018 [facility] HEMATOLOGY MPV 9.8 7.4 - 10.4 01/[address] CHEM PANEL Glucose Lvl 79 70 - 99 01/[address] CHEM PANEL BUN 27 7 - 22 01/[address] CHEM PANEL Creatinine 0.77 0.50 - 01/07 [facility] Lvl 1.40 /2018 [facility] CHEM PANEL Sodium Lvl 142 135 - 145 01/07 [facility] CHEM PANEL Potassium 4.2 3.5 - 5.1 01/07 [facility] [place] [facility] CHEM PANEL Chloride Lvl 106 95 - 109 01/07 [facility] CHEM PANEL CO2 28 24 - 32 01/07 [facility] CHEM PANEL AGAP 12.2 10.0 - 08 [place] 20.0 [facility] CHEM PANEL Calcium Lvl 8.6 8.5 - 10.5 01/07 [facility] CHEM PANEL eGFR 78 01/07 [facility] Comment: The Medical eGFR is Center calculated [...] 1.8 - 2.4 01/07 [facility] CHEM PANEL Phosphorus 3.7 2.5 - 4.5 01/07 [facility] HEMATOLOGY Neutrophils 14.2 1.5 - 8.1 01[place] [facility] HEMATOLOGY Lymphocytes 6.1 1.0 - 5.5 01/07 [place] # /2018 [facility] HEMATOLOGY Monocytes # 0.4 0.0 - 0.8 01/07 [facility] HEMATOLOGY Basophils # 0.2 0.0 - 0.2 01/07 [facility] HEMATOLOGY Segs 67.0 45.0 - 01/07 [place] 75.0 [facility] HEMATOLOGY Bands 0.0 0.0 - 11.0 01/07 [facility] HEMATOLOGY Lymphocytes 29.0 20.0 - 01/07 [facility] 40.0 [facility] HEMATOLOGY Monocytes 2.0 2.0 - 12.0 01/07 [facility]2018 [facility] HEMATOLOGY Basophils 1.0 0.0 - 1.0 01/07 [facility] [address] [place] [address] HEMATOLOGY Myelocytes 1.0 <=0.0 % 01/07 [facility] HEMATOLOGY Atypical 0.0 <=0.0 % 01/07 [facility] Lymphs [facility] HEMATOLOGY NRBC 2 01/07 [facility] HEMATOLOGY Plt Morph Normal Normal 01/07 [facility] (01/07/19 5:31 AM) /2018 [facility] HEMATOLOGY Anisocyte 1+ None Seen 01/07 [facility] (01/07/19 5:31 AM) [place] HEMATOLOGY Macrocyte 1+ None Seen 01/07 [facility] (01/07/19 5:31 AM) [place] HEMATOLOGY Polychrom Moderate None Seen 01/07 [facility] (01/07/19 5:31 AM) [place] HEMATOLOGY WBC 21.2 3.7 - 10.4 01/07 [facility] HEMATOLOGY RBC 2.83 4.20 - 01/07 [facility] 5.40 [facility] HEMATOLOGY Hgb 9.6 12.0 - 01/07 [facility] 16.0 [facility] HEMATOLOGY Hct 29.6 36.0 - 01/07 [facility] 48.0 [facility] HEMATOLOGY MCV 104.5 80.0 - 01/07 [facility] 98.0 [facility] HEMATOLOGY MCH 33.9 27.0 - 01/07 [facility] 31.0 2019 [facility] HEMATOLOGY MCHC 32.4 32.0 - 01/07 [facility] 36.0 2019 [facility] HEMATOLOGY RDW 19.9 11.5 - 01/07 [facility] 14.5 [facility] HEMATOLOGY Platelet 139 133 - 450 01/07 [facility]2018 [facility] HEMATOLOGY MPV 10.6 7.4 - 10.4 01/[address] CHEM PANEL Glucose Lvl 130 70 - 99 01/[address] CHEM PANEL BUN 27 7 - 22 01/06 [facility]2018 [facility] CHEM PANEL Creatinine 1.34 0.50 - 01/06 [place] Lvl 1.40 [facility] CHEM PANEL Sodium Lvl 145 135 - 145 01/06 [facility] CHEM PANEL Potassium 4.0 3.5 - 5.1 01/06 [facility] Lvl /2018 [facility] CHEM PANEL Chloride Lvl 106 95 - 109 01/06 [facility] CHEM PANEL CO2 27 24 - 32 01/06 [facility] CHEM PANEL Calcium Lvl 8.3 8.5 - 10.5 01/06 as [facility] CHEM PANEL eGFR 40 01/06 [facility] Comment: The Medical eGFR is Center calculated [...] AGAP 16.0 10.0 - 08 [place] 20.0 [facility] HEMATOLOGY Segs 84.9 45.0 - 08 [facility] 75.0 [facility] HEMATOLOGY Lymphocytes 11.4 20.0 - 08 [place] 40.0 [facility] HEMATOLOGY Monocytes 2.9 2.0 - 12.0 01/06 [facility] HEMATOLOGY Eosinophils 0.2 0.0 - 4.0 [place]2018 [facility] HEMATOLOGY Basophils 0.6 0.0 - 1.0 01/06 [facility] HEMATOLOGY Neutrophils 12.0 1.5 - 8.1 01/06 [place] # /2018 [facility] HEMATOLOGY Lymphocytes 1.6 1.0 - 5.5 01/06 [facility] # /2019 [facility] HEMATOLOGY Monocytes # 0.4 0.0 - 0.8 01/06 [facility] s /2019 [facility] HEMATOLOGY Basophils # 0.1 0.0 - 0.2 01/06 [facility] s [facility] HEMATOLOGY Macrocyte 1+ None Seen 01/06 [facility] *ABN* /2018 Medical (01/06/19 2:41 PM) [place] HEMATOLOGY Polychrom slight 01/06 [facility] /2018 [facility] HEMATOLOGY WBC 14.1 3.7 - 10.4 01/06 [facility] /2019 [facility] HEMATOLOGY RBC 2.86 4.20 - 01/06 [facility] 5.40 /2019 [facility] HEMATOLOGY Hgb 9.7 12.0 - 01/06 [facility] 16.0 2019 [facility] HEMATOLOGY Hct 29.5 36.0 - 01/06 [facility] 48.0 /2019 [facility] HEMATOLOGY MCV 103.3 80.0 - 01/06 [facility] 98.0 /2019 [facility] HEMATOLOGY MCH 33.8 27.0 - 01/06 [facility] 31.0 /2019 [facility] HEMATOLOGY MCHC 32.7 32.0 - 01/06 [facility] 36.0 /2019 [facility] HEMATOLOGY RDW 20.1 11.5 - 01/06 [facility] 14.5 [facility] HEMATOLOGY Platelet 119 133 - 450 01/06 [facility] /2018 [facility] HEMATOLOGY MPV 10.2 7.4 - 10.4 01/[address] CARDIAC BNP 98 <=100 01/04 [facility] ENZYMES pg/mL [facility] ELECTROLYTE AGAP 12.0 10.0 - 08 [facility] 20.0 [facility] ELECTROLYTE Glucose Lvl 83 70 - 99 01/04 [facility] S /2019 [facility] ELECTROLYTE BUN 23 7 - 22 01/04 [facility] S /2019 [facility] ELECTROLYTE Creatinine 0.88 0.50 - 08 [facility] Lvl 1.40 [facility] ELECTROLYTE Sodium Lvl 140 135 - 145 01/04 [facility] S /2018 [facility] ELECTROLYTE Potassium 4.0 3.5 - 5.1 01/04 [facility] ELECTROLYTE Chloride Lvl 107 95 - 109 01/04 [facility] S /2019 [facility] ELECTROLYTE CO2 25 24 - 32 08/ [facility] /2019 [facility] ELECTROLYTE Calcium Lvl 8.5 8.5 - 10.5 01/04 [place] [facility] ELECTROLYTE eGFR 66 01/04 Result [place] [...] HEMATOLOGY Eosinophils 0.2 0.0 - 0.5 01/04 [facility] # [facility] HEMATOLOGY Bands 3.0 0.0 - 11.0 01/[address] HEMATOLOGY Eosinophils 1.0 0.0 - 4.0 01/04 [facility] [address] [place] [address] HEMATOLOGY Myelocytes 1.0 <=0.0 % 01/[address] HEMATOLOGY Atypical 0.0 <=0.0 % 01/04 [facility] Lymphs [address] [place] [address] HEMATOLOGY NRBC 9 01/[address] HEMATOLOGY Plt Morph Normal Normal 01/04 [facility] (01/04/19 12:50 PM) [facility] HEMATOLOGY Anisocyte 1+ None Seen 01/04 [facility] *ABN* [facility] (01/04/19 12:50 PM) [place] HEMATOLOGY Eosinophils 0.1 0.0 - 4.0 01/01 [facility] [address] [place] [address] HEMATOLOGY Basophils 0.7 0.0 - 1.0 01/[address] HEMATOLOGY Basophils # 0.2 0.0 - 0.2 01/[address] PARATHYROID Ca Ion WB 1.08 1.05 - 01/01 [place] PROFILE 1. [facility] PARATHYROID Ca Norm WB 1.04 1.05 - 01/01 [facility] PROFILE 06.25 [facility] HEMATOLOGY Metamyelocyt 3.0 0.0 - 1.0 12/31 [place] [facility] CHEM PANEL Magnesium 2.1 1.8 - 2.4 12/30 [facility] CHEM PANEL Phosphorus 2.7 2.5 - 4.5 12/[address] HEMATOLOGY Fibrinogen 463 230 - 510 12/30 [facility] HEMATOLOGY Eosinophils 0.1 0.0 - 0.5 12/[place] # [facility] PARATHYROID Ca Ion WB 1.08 1.05 - 12/30 [facility] PROFILE . [facility] PARATHYROID Ca Norm WB 1.10 1.05 - 12/30 [facility] 06.25 [facility] CARDIAC Troponin-I 0.09 0.00 - 12/29 [facility] ENZYMES 0. [facility] CHEM PANEL Magnesium 2.0 1.8 - 2.4 12/29 [facility] CHEM PANEL Phosphorus 2.4 2.5 - 4.5 12/29 [facility] HEMATOLOGY Plt Morph Normal Normal 12/29 [facility] (12/29/18 12:04 AM) [facility] HEMATOLOGY INR 1.02 0.85 - 12/29 [facility] 06.17 [facility] HEMATOLOGY PT 13.2 12.0 - 12/29 [facility] 14.7 [facility] HEMATOLOGY PTT 31.0 22.9 - 12/29 [place] 35.8 [facility] HEMATOLOGY Fibrinogen 424 230 - 510 12/29 [facility] [place] [facility] PARATHYROID Ca Ion WB 1.10 1.05 - 12/29 [facility] PROFILE . [facility] PARATHYROID Ca Norm WB 1.11 1.05 - 12/29 [facility] . [facility] CARDIAC Troponin-I 0.11 0.00 - 12/28 [place] ENZYMES 0. [facility] CHEM PANEL Total 4.7 6.4 - 8.4 12/28 [facility] Protein [facility] CHEM PANEL Albumin Lvl 2.8 3.5 - 5.0 12/[place] [facility] CHEM PANEL ALT 36 0 - 65 12/28 [facility] CHEM PANEL AST 18 0 - 37 12/28 [facility] CHEM PANEL Alk Phos 73 39 - 136 12/[address] CHEM PANEL Bili Total 0.7 0.2 - 1.3 12/28 [facility]2018 [facility] CHEM PANEL Bili Direct 0.2 0.0 - 0.3 12/28 [facility] CHEM PANEL Bili 0.5 0.0 - 1.0 12/28 [facility] CHEM PANEL Globulin 1.9 2.7 - 4.2 12/28 [facility] CHEM PANEL A/G Ratio 1.5 0.7 - 1.6 12/28 [facility] HEMATOLOGY Metamyelocyt 1.0 0.0 - 1.0 12/28 [facility] as es [facility] HEMATOLOGY INR 1.13 0.85 - 12/28 [facility] 1.17 [facility] HEMATOLOGY PT 14.3 12.0 - 12/28 [facility] 14.7 [facility] HEMATOLOGY PTT 35.5 22.9 - 12/28 [place] 35.8 [facility] SPECIAL Hgb A1C 11.1 <=5.6 % 12/28 [facility] CHEMISTRY [facility] URINE AND Occult Bld Negative Negative 12/27 [facility] STOOL Stl (12/27/18 6:12 AM) /2018 [facility] CARDIAC Troponin-I 0.06 0.00 - 12/27 [facility] ENZYMES 0.40 [facility] CHEM PANEL Total 4.7 6.4 - 8.4 12/27 [facility] Protein [facility] CHEM PANEL Albumin Lvl 3.5 3.5 - 5.0 12/27 [facility] CHEM PANEL ALT 30 0 - 65 12/27 [facility] [address] [place] [address] CHEM PANEL AST 11 0 - 37 12/[address] CHEM PANEL Alk Phos 55 39 - 136 12/[address] CHEM PANEL Bili Total 0.5 0.2 - 1.3 12/[address] CHEM PANEL Bili Direct 0.1 0.0 - 0.3 12/27 [facility] [address] [place] [address] CHEM PANEL Bili 0.4 0.0 - 1.0 12/27 [facility] Indirect [address] [place] [address] CHEM PANEL Globulin 1.2 2.7 - 4.2 12/27 [facility] CHEM PANEL A/G Ratio 2.9 0.7 - 1.6 12/27 [facility] HEMATOLOGY PT 15.8 12.0 - 12/27 [place] 14.7 [facility] HEMATOLOGY INR 1.29 0.85 - 12/27 [place] 1.17 [facility] HEMATOLOGY PTT 37.6 22.9 - 12/27 [place] 35.8 [facility] HEMATOLOGY Fibrinogen 241 230 - 510 12/27 [place] Lvl /2018 [facility] CHEM PANEL Total 5.1 6.4 - 8.4 12/26 [facility] Protein [facility] CHEM PANEL Albumin Lvl 3.1 3.5 - 5.0 12/26 [facility] CHEM PANEL Globulin 2.0 2.7 - 4.2 12/26 [facility]2018 [facility] CHEM PANEL A/G Ratio 1.6 0.7 - 1.6 12/[address] CHEM PANEL ALT 51 0 - 65 12/26 [facility]2018 [facility] CHEM PANEL AST 16 0 - 37 12/26 [facility]2018 [facility] CHEM PANEL Alk Phos 88 39 - 136 12/[address] CHEM PANEL Bili Total 0.4 0.2 - 1.3 12/26 [facility]2018 [facility] CHEM PANEL Bili Direct 0.2 0.0 - 0.3 12/26 [facility] CHEM PANEL Bili 0.2 0.0 - 1.0 12/26 [facility] Indirect [facility] URINE AND UA Color Light Yellow Yellow 12/25 [facility] STOOL *NA* /2018 [facility] (12/25/18 2:16 PM) [place] URINE AND UA Turbidity Slight Clear 12/25 [facility] STOOL *ABN* /2018 [facility] (12/25/18 2:16 PM) [place] URINE AND UA Spec Grav 1.013 <=1.030 12/25 [facility] STOOL [facility] URINE AND UA pH 5.0 5.0 - 8.0 12/25 [facility] STOOL [facility] URINE AND UA Protein Negative Negative 12/25 [facility] STOOL mg/dL mg/dL [facility] URINE AND UA Glucose 500 mg/dL Negative 12/25 [facility] STOOL mg/dL /2018 [facility] URINE AND UA Ketones Trace Negative 12/25 [facility] STOOL mg/dL mg/dL /2018 [facility] URINE AND UA Bili Negative Negative 12/25 [facility] STOOL *NA* Medical (12/25/18 2:16 PM) Center URINE AND UA Blood Negative Negative 12/25 [facility] (12/25/18 2:16 PM) [facility] URINE AND UA <1.0 0.1 - 1.0 12/25 [facility] Urobilinogen /2018 [facility] URINE AND UA Nitrite Negative Negative 12/25 [facility] (12/25/18 2:16 PM) [facility] URINE AND UA Leuk Est Negative Negative 12/25 [facility] (12/25/18 2:16 PM) /2018 [facility] URINE AND UA WBC 4 0 - 5 12/25 [facility] /2018 [facility] URINE AND UA RBC 1 0 - 2 12/25 [facility] /2018 [facility] URINE AND UA Sq Epi None Seen 12/25 [facility] /2018 [facility] CHEM PANEL Lactic Acid 1.8 0.5 - 2.2 12/25 [facility] HEMATOLOGY Thrombin 17.7 15.0 - 12/25 [facility] Time 21.2 [facility] HEMATOLOGY D-Dimer 2.84 12/25 [facility] /2018 [facility] BACTERIAL - MRSA by PCR Negative 12/25 [facility] (12/25/18 12:22 AM) /2018 [facility] CHEM PANEL Lactic Acid 2.3 0.5 - 2.2 12/25 [facility] DRUG SCREEN U [place]ph Scr Negative Negative 12[place] *NA* [facility] (12/25/18 12:22 AM) Cente r DRUG SCREEN U [place] Scr Negative Negative 12/[place] *NA* [facility] (12/25/18 12:22 AM) Cente r DRUG SCREEN U Benzodiaz Positive Negative 12/25 [facility] as Scr *ABN* Medical (12/25/18 12:22 AM) [...] Od Value 0.215 12/25 [facility] HEMATOLOGY Pos CO Value 0.400 12/25 [facility] URINE AND UA Color Veronique Yellow 12/25 [facility] STOOL *ABN* [facility] (12/25/18 12:22 AM) Cente r URINE AND UA Turbidity Slight Clear 12/25 [facility] STOOL *ABN* [facility] (12/25/18 12:22 AM) Cente r URINE AND UA Spec Grav 1.029 <=1.030 12/25 [facility] URINE AND UA pH 5.0 5.0 - 8.0 12/25 [facility] /2018 [facility] URINE AND UA Protein 100 mg/dL Negative 12/25 [facility] STOOL mg/dL /2018 [facility] URINE AND UA Glucose Negative Negative 12/25 [facility] STOOL mg/dL mg/dL /2018 [facility] URINE AND UA Ketones Trace Negative 12/25 [facility] STOOL mg/dL mg/dL /2018 [facility] URINE AND UA Bili Negative Negative 12/25 [facility] STOOL *NA* /2018 Medical (12/25/18 12:22 AM) Cente r URINE AND UA Blood Moderate Negative 12/25 [facility] STOOL *ABN* [facility] (12/25/18 12:22 AM) Cente r URINE AND UA 4.0 0.1 - 1.0 12/25 [facility] STOOL Urobilinogen /2018 [facility] URINE AND UA Nitrite Negative Negative 12/25 [facility] (12/25/18 12:22 AM) [facility] URINE AND UA Leuk Est Negative Negative 12/25 [facility] STOOL (12/25/18 12:22 AM) [facility] URINE AND UA Sq Epi Few /LPF Few /LPF 12/25 [facility] STOOL /2018 [facility] URINE AND UA WBC 3 0 - 5 12/25 [facility] /2018 [facility] URINE AND UA RBC 37 0 - 2 12/25 [facility] /2018 [facility] URINE AND UA Bacteria Occasional None Seen 12[place] /HPF /HPF [facility] URINE AND UA Mucus Few /LPF None Seen 12/25 [facility] STOOL /LPF /2018 [facility] URINE AND UA Renal Epi 23 <=0 /LPF 12/25 [facility] /2018 [facility] URINE AND UA Hyal Cast 1 0 - 2 12/25 [facility] /[address] [place] [address] VANCOMYCIN: Gram Stain Gram Stain 12/25 [place] SUSC:PT:ISO Report Performed Medical LATE:ORDQN: By: [facility] VANCOMYCIN: Culture: Moderate Staphylococ cus aureus , Upon Supplemental Testing, This Isolate Was Found To Be 12/25 [facility] SUSC:PT:ISO 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 Medical LATE:ORDQN: w/Gram Stain . [facility] Normal Respiratory Era Isolated VANCOMYCIN: Staphylococc Staphyloco 12/25 [place] SUSC:PT:ISO us aureus ccus Medical LATE:ORDQN: aureus [facility] BLOOD BANK ABO/Rh O POS 12/24 [facility] RESULTS [facility] BLOOD BANK Antibody Negative 5 12/24 Result [facility] RESULTS Scrn (12/24/18 6:54 PM) Comment: Medic al 12/24/2018 Center 20:18 [id number]
Patient has antibodies. Allow extra time for additional crossmatches. CARDIAC Total CK 62 12 - 191 12/24 [facility] ENZYMES [facility] CHEM PANEL Ammonia 27.0 <=45.0 12/24 [facility] uMol/L /2018 [facility] CHEM PANEL Lactic Acid 5.0 0.5 [...] - 11/29 [facility] Lvl 1.40 [facility] CHEM PANEL Glucose Lvl 104 70 - 99 11/29 [facility] CHEM PANEL Potassium 4.2 3.5 - 5.1 11/29 [facility] CHEM PANEL BUN 19 7 - 22 11/29 [facility] CHEM PANEL Calcium Lvl 9.3 8.5 - 10.5 11/29 [facility] CHEM PANEL Sodium Lvl 140 135 - 145 11/29 [facility] CHEM PANEL CO2 30 24 - 32 11/29 [facility] CHEM PANEL Chloride Lvl 104 95 - 109 11/29 [facility] CHEM PANEL AGAP 10.2 10.0 - 11/29 [facility] 20.0 [facility] URINE AND UA WBC 0-2 /HPF None Seen 11/29 [facility] STOOL /HPF /2018 [facility] URINE AND UA Bacteria Few /HPF None Seen 11/29 [facility] STOOL /HPF /2018 [facility] URINE AND UA Sq Epi Moderate Few /LPF 11/29 [facility] STOOL /LPF /2018 [facility] URINE AND UA RBC None Seen 0 - 2 11/29 [facility] (11/29/18 10:09 AM) [facility] URINE AND UA Mucus Few /LPF None Seen 11/29 [facility] STOOL /LPF /2018 [facility] URINE AND UA CaOx Jagruti Moderate None Seen 11/29 [place] STOOL /HPF /HPF /2018 [facility] URINE AND UA 0.2 0.1 - 1.0 11/29 [facility] Urobilinogen /2018 [facility] URINE AND UA Blood Negative Negative 11/29 [facility] (11/29/18 10:09 AM) [facility] URINE AND UA Nitrite Negative Negative 11/29 [facility] (11/29/18 10:09 AM) [facility] URINE AND UA Bili Small Negative 11/29 [facility] *ABN* /2018 [facility] (11/29/18 10:09 AM) [place] URINE AND UA Leuk Est Negative Negative 11/29 [facility] [facility] (11/29/18 10:09 AM) /2018 [facility] URINE AND UA Protein 100 mg/dL Negative 11/29 [facility] mg/dL /2018 [facility] URINE AND UA pH 5.5 5.0 - 8.0 11/29 [facility] /2018 [facility] URINE AND UA Ketones Negative Negative 11/29 [facility] *NA* /2018 [facility] (11/29/18 10:09 AM) [place] URINE AND UA Glucose Negative Negative 11/29 [facility] (11/29/18 10:09 AM) [facility] URINE AND UA Color Yellow Yellow 11/29 [facility] [place] [facility] *NA* /2018 [facility] (11/29/18 10:09 AM) [place] URINE AND UA Turbidity Slight Cloudy Clear 11/29 [facility] [place] [facility] (11/29/18 10:09 AM) [facility] URINE AND UA Spec Grav >=1.030 <=1.030 11/29 [facility] [place] [facility] *ABN* /2018 [facility] (11/29/18 10:09 AM) [place] HEMATOLOGY MPV 10.6 7.4 - 10.4 09/23 [place] /2018 [facility] HEMATOLOGY MCV 91.5 80.0 - 09/23 [place] 98.0 [facility] HEMATOLOGY Hct 42.9 36.0 - 09/23 [facility] [place] 48.0 [facility] HEMATOLOGY MCH 31.0 27.0 - 09/23 31.0 [facility] HEMATOLOGY RDW 14.1 11.5 - 09/23 14.5 [facility] HEMATOLOGY MCHC 33.8 32.0 - 09/23 36.0 [facility] HEMATOLOGY Platelet 128 133 - 450 09/23 2018 [facility] HEMATOLOGY Hgb 14.5 12.0 - 09/23 16.0 [facility] HEMATOLOGY WBC 10.8 3.7 - 10.4 09/23 [facility] HEMATOLOGY RBC 4.69 4.20 - 09/23 [place] 5.40 [facility] HEMATOLOGY Eosinophils 0.1 0.0 - 0.5 09/23 [facility] HEMATOLOGY Segs 70.7 45.0 - 09/23 [facility] 75.0 [facility] HEMATOLOGY Lymphocytes 21.8 20.0 - 09/23 [facility] 40.0 [facility] HEMATOLOGY Lymphocytes 2.4 1.0 - 5.5 09/23 [facility] HEMATOLOGY Neutrophils 7.6 1.5 - 8.1 09/23 [facility] HEMATOLOGY Monocytes # 0.7 0.0 - 0.8 09/23 [facility] HEMATOLOGY Monocytes 6.7 2.0 - 12.0 09/23 2018 [facility] HEMATOLOGY Basophils 0.3 0.0 - 1.0 09/23 2018 [facility] HEMATOLOGY Eosinophils 0.5 0.0 - 4.0 09/23 [facility] CHEM PANEL Magnesium 2.2 1.8 - 2.4 09/23 [facility] Lvl [facility] CHEM PANEL Phosphorus 3.0 2.5 - 4.5 09/23 [facility]2018 [facility] CHEM PANEL eGFR 69 09/23 Result [...] PANEL CO2 28 24 - 32 09/23 [facility] CHEM PANEL Sodium Lvl 141 135 - 145 09/23 [facility] CHEM PANEL Potassium 3.8 3.5 - 5.1 09/23 [facility] l [facility] CHEM PANEL Chloride Lvl 107 95 - 109 09/23 [facility] CHEM PANEL AGAP 9.8 10.0 - 09/23 20.0 [facility] CHEM PANEL Calcium Lvl 8.1 8.5 - 10.5 09/23 [facility] CHEM PANEL BUN 23 7 - 22 09/23 [facility] CHEM PANEL Creatinine 0.86 0.50 - 09/23 [place] Lvl 1.40 [facility] CHEM PANEL Glucose Lvl 43 70 - 99 09/23 Result Comment: [facility] Result(s) called to Mony Figueroa at 09/23/2018 08:35 by . Read back OK.
Reche cked HEMATOLOGY Hgb 14.6 12.0 - 09/23 16.0 [facility] HEMATOLOGY Hct 44.7 36.0 - 09/23 48.0 [facility] HEMATOLOGY RBC 4.85 4.20 - 09/23 5.40 [facility] HEMATOLOGY WBC 14.1 3.7 - 10.4 09/23 [facility] HEMATOLOGY MPV 10.9 7.4 - 10.4 09/23 [facility] HEMATOLOGY RDW 14.2 11.5 - 09/23 14.5 [facility] HEMATOLOGY Platelet 114 133 - 450 09/23 [facility] HEMATOLOGY MCV 92.2 80.0 - 09/23 [place] 98.0 [facility] HEMATOLOGY MCH 30.1 27.0 - 09/23 [facility] 31.0 [facility] HEMATOLOGY MCHC 32.6 32.0 - 09/23 [facility] 36.0 [facility] PARATHYROID Ca Norm WB 1.05 1.05 - 09/23 [facility] PROFILE 1. [facility] PARATHYROID Ca Ion WB 1.00 1.05 - 09/23 [facility] PROFILE 1. [facility] CHEM PANEL Bili Total 0.6 0.2 - 1.3 09/22 [facility] CHEM PANEL AST 35 0 - 37 09/22 [facility] CHEM PANEL Alk Phos 95 39 - 136 09/22 [facility] CHEM PANEL ALT 47 0 - 65 09/22 [facility] CHEM PANEL eGFR 52 09/22 [facility] Comment: The Medical eGFR is Center calculated [...] Albumin Lvl 2.3 3.5 - 5.0 09/22 [facility] CHEM PANEL Total 7.1 6.4 - 8.4 09/22 [facility] Protein [facility] CHEM PANEL CO2 26 24 - 32 09/22 [facility]2018 [facility] CHEM PANEL Calcium Lvl 8.1 8.5 - 10.5 09/22 [facility] CHEM PANEL Chloride Lvl 102 95 - 109 09/22 [facility] CHEM PANEL Potassium 4.3 3.5 - 5.1 09/22 [facility] Lvl [facility] CHEM PANEL Sodium Lvl 135 135 - 145 09/22 [facility] CHEM PANEL Creatinine 1.07 0.50 - 09/22 [place] Lvl 1.40 /2018 [facility] CHEM PANEL Glucose Lvl 272 70 - 99 09/22 [facility] CHEM PANEL BUN 29 7 - 22 09/22 2018 [facility] CHEM PANEL Globulin 4.8 2.7 - 4.2 09/22 2018 [facility] CHEM PANEL A/G Ratio 0.5 0.7 - 1.6 09/22 [facility] CHEM PANEL B/C Ratio 27 6 - 25 09/22 2018 [facility] CHEM PANEL AGAP 11.3 10.0 - 09/22 [place] 20.0 [facility] HEMATOLOGY Monocytes 6.5 2.0 - 12.0 09/22 [facility] HEMATOLOGY Eosinophils 0.1 0.0 - 4.0 09/22 [facility] HEMATOLOGY Basophils 0.2 0.0 - 1.0 09/22 [facility] HEMATOLOGY Segs 73.8 45.0 - 09/22 [place] 75.0 [facility] HEMATOLOGY Lymphocytes 19.4 20.0 - 09/22 [place] 40.0 [facility] HEMATOLOGY Neutrophils 6.0 1.5 - 8.1 09/[place] # /2018 [facility] HEMATOLOGY Lymphocytes 1.6 1.0 - 5.5 09/22 [place] # /2018 [facility] HEMATOLOGY Monocytes # 0.5 0.0 - 0.8 09/22 [place] [facility] HEMATOLOGY MPV 11.3 7.4 - 10.4 09/22 [facility] HEMATOLOGY MCHC 33.1 32.0 - 09/22 [place] 36.0 2019 [facility] HEMATOLOGY RDW 14.0 11.5 - 09/22 [place] 14.5 [facility] HEMATOLOGY Platelet 106 133 - 450 09/22 [facility] HEMATOLOGY MCV 93.1 80.0 - 09/22 [place] 98.0 [facility] HEMATOLOGY Hct 44.2 36.0 - 09/22 [place] 48.0 2019 [facility] HEMATOLOGY MCH 30.8 27.0 - 09/22 [place] 31.0 2019 [facility] HEMATOLOGY RBC 4.74 4.20 - 09/22 [facility] [place] 5.40 [facility] HEMATOLOGY WBC 8.1 3.7 - 10.4 09/22 [facility] HEMATOLOGY Hgb 14.6 12.0 - 09/22 16. [facility] CHEM PANEL Phosphorus 3.3 2.5 - 4.5 09/18 [facility] CHEM PANEL Magnesium 2.0 1.8 - 2.4 09/18 [facility] CHEM PANEL eGFR 70 09/18 [facility] Comment: The Medical eGFR is Center calculated [...] Calcium Lvl 8.7 8.5 - 10.5 09/18 [facility] CHEM PANEL Creatinine 0.84 0.50 - 09/18 [facility] Lvl 1.40 [facility] CHEM PANEL Sodium Lvl 142 135 - 145 09/18 [facility] CHEM PANEL BUN 32 7 - 22 09/18 [facility] CHEM PANEL Chloride Lvl 106 95 - 109 09/18 [facility] s [facility] CHEM PANEL CO2 32 24 - 32 09/18 2018 [facility] CHEM PANEL Potassium 3.9 3.5 - 5.1 09/18 [facility] [place] [facility] CHEM PANEL Glucose Lvl 107 70 - 99 09/18 2018 [facility] CHEM PANEL AGAP 7.9 10.0 - 09/18 20. [facility] HEMATOLOGY Monocytes # 0.7 0.0 - 0.8 09[place] [facility] HEMATOLOGY Lymphocytes 1.7 1.0 - 5.5 09/18 [place] # /2018 [facility] Center HEMATOLOGY Neutrophils 6.0 1.5 - 8.1 09/18 [facility] HEMATOLOGY Basophils 0.1 0.0 - 1.0 09/18 [facility] HEMATOLOGY Monocytes 8.5 2.0 - 12.0 09/18 [facility] HEMATOLOGY Lymphocytes 20.3 20.0 - 09/18 [place] 40.0 [facility] HEMATOLOGY Segs 71.1 45.0 - 09/18 [place] 75.0 [facility] HEMATOLOGY MCHC 33.8 32.0 - 09/18 [place] 36.0 [facility] HEMATOLOGY RDW 14.1 11.5 - 09/18 [place] 14.5 [facility] HEMATOLOGY MCH 31.2 27.0 - 09/18 [place] 31.0 [facility] HEMATOLOGY MCV 92.2 80.0 - 09/18 [place] 98.0 [facility] HEMATOLOGY Hct 44.7 36.0 - 09/18 [place] 48.0 2019 [facility] HEMATOLOGY RBC 4.85 4.20 - 09/18 [place] 5.40 [facility] HEMATOLOGY WBC 8.5 3.7 - 10.4 09/18 [facility] HEMATOLOGY Hgb 15.1 12.0 - 09/18 [place] 16.0 [facility] HEMATOLOGY MPV 11.8 7.4 - 10.4 09/18 [facility] HEMATOLOGY Platelet 81 133 - 450 09/18 [facility] PARATHYROID Ca Ion WB 1.09 1.05 - 09/18 [place] PROFILE 1. [facility] PARATHYROID Ca Norm WB 1.09 1.05 - 09/18 [facility] PROFILE . [facility] CHEM PANEL Magnesium 2.0 1.8 - 2.4 09/17 [facility] Lvl [facility] CHEM PANEL Calcium Lvl 8.6 8.5 - 10.5 09/17 [place] [facility] CHEM PANEL AGAP 6.4 10.0 - 09/17 [place] 20.0 [facility] CHEM PANEL eGFR 70 09/17 [facility] Comment: The Medical eGFR is Center calculated [...] - 5.1 09/17 [facility] Lvl [facility] CHEM PANEL Sodium Lvl 142 135 - 145 09/17 [facility] CHEM PANEL Chloride Lvl 104 95 - 109 09/17 [place] [facility] CHEM PANEL Creatinine 0.84 0.50 - 09/17 [facility] Lvl 1.40 [facility] CHEM PANEL CO2 35 24 - 32 09/17 [facility]2018 [facility] CHEM PANEL Glucose Lvl 112 70 - 99 09/17 [facility]2018 [facility] CHEM PANEL BUN 37 7 - 22 09/17 2018 [facility] CHEM PANEL Phosphorus 2.6 2.5 - 4.5 09/17 [facility] HEMATOLOGY Platelet 71 133 - 450 09/17 [facility] HEMATOLOGY MCHC 33.1 32.0 - 09/17 [place] 36.0 [facility] HEMATOLOGY MPV 10.7 7.4 - 10.4 09/17 [facility] HEMATOLOGY RDW 14.1 11.5 - 09/17 [place] 14.5 [facility] HEMATOLOGY MCH 30.4 27.0 - 09/17 [place] 31.0 [facility] HEMATOLOGY WBC 9.7 3.7 - 10.4 09/17 [facility]2018 [facility] HEMATOLOGY MCV 92.0 80.0 - 09/17 [place] 98.0 [facility] HEMATOLOGY Hct 44.7 36.0 - 09/17 [place] 48.0 [facility] HEMATOLOGY RBC 4.86 4.20 - 09/17 [place] 5.40 /2018 [facility] HEMATOLOGY Hgb 14.8 12.0 - 09/17 [place] 16.0 [facility] HEMATOLOGY Lymphocytes 1.4 1.0 - 5.5 09/17 [facility] s # /2018 [facility] HEMATOLOGY Neutrophils 7.6 1.5 - 8.1 09/17 [facility] s # /2018 [facility] HEMATOLOGY Monocytes 7.0 2.0 - 12.0 09/17 [facility] HEMATOLOGY Basophils 0.5 0.0 - 1.0 09/17 [facility] HEMATOLOGY Lymphocytes 14.4 20.0 - 09/17 [place] 40.0 [facility] HEMATOLOGY Monocytes # 0.7 0.0 - 0.8 09/17 [facility] s /2018 [facility] HEMATOLOGY Segs 78.1 45.0 - 09/17 [facility] 75.0 [facility] PARATHYROID Ca Ion WB 1.11 1.05 - 09/17 [facility] PROFILE 1. [facility] PARATHYROID Ca Norm WB 1.14 1.05 - 09/17 [facility] PROFILE . [facility] CHEM PANEL Magnesium 2.1 1.8 - 2.4 09/16 [facility] Lvl [facility] CHEM PANEL Phosphorus 2.0 2.5 - 4.5 09/16 [facility] ELECTROLYTE AGAP 8.1 10.0 - 09/16 [facility] S 20.0 [facility] ELECTROLYTE eGFR 47 09/16 Result [place] [...] 24 - 32 09/16 [facility] ELECTROLYTE Calcium Lvl 8.4 8.5 - 10.5 09/16 [place] [facility] ELECTROLYTE Potassium 4.1 3.5 - 5.1 09/16 Result [facility] Lvl /2018 Comment: [facility] Moderately Hemolyzed. ELECTROLYTE Chloride Lvl 102 95 - 109 09/16 [facility] ELECTROLYTE Sodium Lvl 139 135 - 145 09/16 [facility] S [facility] ELECTROLYTE BUN 37 7 - 22 09/16 [facility]2018 [facility] ELECTROLYTE Creatinine 1.17 0.50 - 09/16 [facility] Lvl 1.40 [facility] ELECTROLYTE Glucose Lvl 302 70 - 99 09/16 [facility]2018 [facility] HEMATOLOGY Platelet 77 133 - 450 09/16 2018 [facility] HEMATOLOGY MCHC 33.5 32.0 - 09/16 [facility] 36.0 [facility] HEMATOLOGY RDW 14.2 11.5 - 09/16 [facility] 14.5 [facility] HEMATOLOGY MPV 11.1 7.4 - 10.4 09/16 [facility]2018 [facility] HEMATOLOGY MCV 92.4 80.0 - 09/16 [facility] 98.0 [facility] HEMATOLOGY MCH 31.0 27.0 - 09/16 [facility] 31.0 2019 [facility] HEMATOLOGY Hct 41.6 36.0 - 09/16 [facility] 48.0 2019 [facility] HEMATOLOGY RBC 4.50 4.20 - 09/16 [facility] 5.40 [facility] HEMATOLOGY Hgb 14.0 12.0 - 09/16 [facility] 16.0 2019 [facility] HEMATOLOGY WBC 10.6 3.7 - 10.4 09/16 [facility]2018 [facility] HEMATOLOGY Neutrophils 8.8 1.5 - 8.1 09/16 [facility] HEMATOLOGY Monocytes # 0.7 0.0 - 0.8 09/16 [facility] /2018 [facility] HEMATOLOGY Basophils 0.3 0.0 - 1.0 09/[address] HEMATOLOGY Lymphocytes 1.0 1.0 - 5.5 09/16 [facility] HEMATOLOGY Segs 83.3 45.0 - 09/16 [place] 75.0 [facility] HEMATOLOGY Lymphocytes 9.9 20.0 - 09/16 [place] 40.0 [facility] HEMATOLOGY Monocytes 6.5 2.0 - 12.0 09/16 [facility] PARATHYROID Ca Norm WB 1.13 1.05 - 09/16 [place] PROFILE 1. [facility] PARATHYROID Ca Ion WB 1.13 1.05 - 09/16 [facility] PROFILE 1. [facility] URINE AND UA Renal Epi 3 <=0 /LPF 09/15 [facility] STOOL [facility] URINE AND UA Bacteria Occasional None [place]en 09[place]15 [place] /HPF /HPF [facility] URINE AND UA Mucus Few /LPF None Seen 09/15 [facility] STOOL /LPF [facility] URINE AND UA Hyal Cast 1 0 - 2 09/15 [facility] URINE AND UA Amorph Occasional None Seen [place] /HPF /HPF [facility] URINE AND UA Protein 30 mg/dL Negative 09/15 [facility] mg/dL /2018 [facility] URINE AND UA pH 5.5 5.0 - 8.0 09/15 [facility] URINE AND UA Glucose 250 Negative 09/15 [facility] *ABN* /2018 [facility] (09/15/18 5:04 PM) Center URINE AND UA Ketones Negative Negative 09/15 [facility] *NA* /2018 [facility] (09/15/18 5:04 PM) Center URINE AND UA WBC 5 0 - 5 09/15 [facility] URINE AND UA RBC 4 0 - 2 09/15 [facility] STOOL [facility] URINE AND UA Sq Epi Occasional Few /LPF 09/15 [facility] STOOL /LPF [facility] URINE AND UA Leuk Est Negative Negative 09/15 [facility] (09/15/18 5:04 PM) Medica l Center URINE AND UA Blood Negative Negative 09/15 [facility] (09/15/18 5:04 PM) Medica l [place] URINE AND UA 0.2 0.1 - 1.0 09/15 [facility] Urobilinogen /2018 [facility] URINE AND UA Nitrite Negative Negative 09/15 [facility] (09/15/18 5:04 PM) Medica l Center URINE AND UA Bili Negative Negative 09/15 [facility] STOOL *NA* /2018 Medical (09/15/18 5:04 PM) [place] URINE AND UA Spec Grav 1.025 <=1.030 09/15 [facility] STOOL [facility] URINE AND UA Turbidity Clear Clear 09/15 [facility] STOOL (09/15/18 5:04 PM) [facility] URINE AND UA Color Yellow Yellow 09/15 [facility] STOOL *NA* Medical (09/15/18 5:04 PM) [place] IMMUNOLOGY Striated 1:320 Neg:<1:40 09/15 Result [facility] Muscle IgG Comment: Medical Performed At: [facility]
[address], [place] [id number]<br/ >Kosta Tucker MD Ph:[phone] IMMUNOLOGY MuSK Auto Ab <1.0 09/14 Result [...] 0.
2. Yeny AVILEZ et al. PNAS 2013;110(24); [id number].< br/>3. Scot E et al. Neurology 2006;67:505-5 07.
This test was developed and its performance characteristi cs
determ ined by [facility]. It has not been cleared or approved
by the Food and Drug Administratio n.
Perfor med At: [employer]
[address] [place], [place] [id number]<br/ >Feliciano Alston MD Ph:[phone] BACTERIAL - MRSA by PCR Negative 09/14 [facility] (09/14/18 11:23 AM) /2018 [facility] IMMUNOLOGY ACHr Binding 1.25 0.00 - 09/14 Result [facility] Ab 0.24 Comment: [facility] Negative: 0.00 - 0.24
Borderline: 0.25 - 0.40
Positive: > 0.40
Perf ormed At: [facility]
[address] [place] [id number]<br/ >Kosta Tucker MD Ph:[phone] IMMUNOLOGY ACHr Block 42 0 - 25 09/14 Result [facility] Ab /2018 Comment: [facility] Negative: 0 - 25
Borderline: 26 - 30
Positive: >30

Results for this test are for research purposes
only by the assay's oil well logger. The performance<b r/>characteri stics of this product have not been
esta blished. Results should not be used as a
diagnos tic procedure without confirmation of the
diagn osis by another medically established<b r/>diagnostic product or procedure.&lt ;br/>Performe d At: [facility]
[address], [place] [id number]<br/ >Kosta Tucker MD Ph:[phone] HEMATOLOGY Eosinophils 0.1 0.0 - 0.5 09/13 [place] # /2018 [facility] Center HEMATOLOGY Basophils # 0.1 0.0 - 0.2 09/13 [place] /2018 [facility] HEMATOLOGY Eosinophils 1.1 0.0 - 4.0 09/13 [place] /2018 [facility] HEMATOLOGY Basophils # 0.1 0.0 - 0.2 09/13 [place] [facility] HEMATOLOGY Eosinophils 0.1 0.0 - 0.5 09/13 [place] # [facility] Center HEMATOLOGY Eosinophils 0.9 0.0 - 4.0 09/13 [place] /2018 [facility] HEMATOLOGY PB Smear Peripheral 09/12 [facility] Path blood /2018 [facility] smear Center examinatio n; - Platelets are decreased with few giant forms. No platelet clump. - RBCs are normocytic ; no schistocyt e - Leukocytes show unremarkab le morphology ; few reactive lymphocyte s. Clinical correlatio n is suggested. CPT 67878 URINE AND UA Bacteria Occasional None Seen 09/12 [place] /HPF /HPF /2018 [facility] URINE AND UA <1.0 0.1 - 1.0 09/12 [facility] STOOL Urobilinogen /2018 [facility] URINE AND UA Ketones Trace Negative 09/12 [facility] STOOL *ABN* [facility] (09/12/18 11:27 AM) Cente r URINE AND UA Blood Small Negative 09/12 [facility] STOOL *ABN* [facility] (09/12/18 11:27 AM) Cente r URINE AND UA Bili Negative Negative 09/12 [facility] *NA* [facility] (09/12/18 11:27 AM) Cente r URINE AND UA Glucose 150mg/dl 09/12 [facility] STOOL /2018 [facility] URINE AND UA Protein 100 mg/dL Negative 09/12 [facility] STOOL mg/dL [facility] URINE AND UA Turbidity Slight Clear 09/12 [facility] STOOL *ABN* [facility] (09/12/18 11:27 AM) Cente r URINE AND UA pH 5.0 5.0 - 8.0 09/12 [facility] STOOL /[address] [place] [address] URINE AND UA Spec Grav 1.018 <=1.030 09/12 [facility] STOOL [address] [place] [address] URINE AND UA Color Yellow Yellow 09/12 [facility] STOOL *NA* [facility] (09/12/18 11:27 AM) Cente r URINE AND UA Mucus Few /LPF None Seen 09/12 [facility] STOOL /LPF /[address] [place] [address] URINE AND UA Hyal Cast 4 0 - 2 09/12 [facility] STOOL /2018 [facility] URINE AND UA WBC 4 0 - 5 09/12 [facility] /2018 [facility] URINE AND UA Nitrite Negative Negative 09/12 [facility] (09/12/18 11:27 AM) [facility] URINE AND UA RBC 1 0 - 2 09/12 [facility] STOOL /2018 [facility] URINE AND UA Sq Epi Moderate Few /LPF 09/12 [facility] STOOL /LPF /2018 [facility] URINE AND UA Leuk Est Negative Negative 09/12 [facility] STOOL (09/12/18 11:27 AM) /2018 [facility] CHEM PANEL Bili Total 0.7 0.2 - 1.3 09/[address] CHEM PANEL Alk Phos 141 39 - 136 09/[address] CHEM PANEL Total 8.3 6.4 - 8.4 09/12 [facility] Protein [facility] CHEM PANEL AST 25 0 - 37 09/[address] CHEM PANEL ALT 34 0 - 65 09/[address] CHEM PANEL Albumin Lvl 2.7 3.5 - 5.0 09/12 [facility] CHEM PANEL Globulin 5.6 2.7 - 4.2 09/[address] CHEM PANEL B/C Ratio 9 6 - 25 09/[address] CHEM PANEL A/G Ratio 0.5 0.7 - 1.6 09/12 [facility]2018 [facility] HEMATOLOGY PTT 31.6 22.9 - 09/12 [place] 35.8 /2019 [facility] HEMATOLOGY PT 14.2 12.0 - 09/12 [place] 14.7 2019 [facility] HEMATOLOGY INR 1.12 0.85 - 09/12 [place] 1.17 [facility] HEMATOLOGY Eosinophils 2.4 0.0 - 4.0 09/12 [facility] s /2018 [facility] HEMATOLOGY Eosinophils 0.2 0.0 - 0.5 09/12 [place] # [facility] HEMATOLOGY Basophils # 0.2 0.0 - 0.2 09/12 [facility] s /2018 [facility] IMMUNOLOGY JAK2 ([id number]) Comment 09/12 Result [facility] Director /2019 Comment: Medical Review [facility] , PhD
[facility], Molecular Oncology
[facility] Biology and Pathology<br/ >[place] [address]
<b r/>Performed At: [facility] RTP
[address], [place] [id number]< br/>Samara Cordova MD Ph:[phone] IMMUNOLOGY JAK2 ([id number]) Comment 09/12 Result [facility] Comment: Medical
[facility] EJ, Sanchez LM, Javed PJ, et al. Acquired
mutation of the tyrosine kinase JAK2 in human
mye loproliferati ve disorders. Lancet. 2004Aug 17-;<br/ >365(0973):14 54-1061. Ankur Norman, Mj V, Ave [address] HANK. A
unique clonal JAK2 mutation leading to constitutive< br/>signaling causes polycythaemia vera. Nature. 2004Sep 26;
43 4(1497):114- 1143.
Flora R, Marianne F, Lizbeth , [...] (WT) and JAK2
muta nt [id number]. The [id number] Absolute Quantitation software
will compare the patient [...] Result [facility] Comment: Medical
The [facility] Quantitative Real-Time PCR assay detects [id number] mutation
[...] Bili Direct <0.1 0.0 - 0.3 09/11 [facility] CHEM PANEL Bili Unable to 0.0 - 1.0 09/11 [facility] Indirect [facility] CHEM PANEL A/G Ratio 0.5 0.7 - 1.6 09/[address] CHEM PANEL ALT 40 0 - 65 09/[address] CHEM PANEL AST 31 0 - 37 09/[address] CHEM PANEL Alk Phos 144 39 - 136 09/[address] CHEM PANEL Bili Total 0.8 0.2 - 1.3 09/11 [facility] CHEM PANEL Total 7.3 6.4 - 8.4 09/11 [facility] Protein [facility] CHEM PANEL Albumin Lvl 2.5 3.5 - 5.0 09/11 [facility] s [facility] CHEM PANEL Globulin 4.8 2.7 - 4.2 09/[address] Culture: 10,000 - 09/10 [facility] Urine 50,000 [facility] CFU/mL [facility] BLOOD BANK Antibody Negative 09/10 [facility] RESULTS Scrn (09/10/18 5:06 PM) Medica l [facility] BLOOD BANK ABO/Rh O POS 09/10 [facility] RESULTS [facility] CHEM PANEL Alk Phos 166 39 - 136 09/10 [facility]2018 [facility] CHEM PANEL Bili Total 0.8 0.2 - 1.3 09/10 [facility]2018 [facility] CHEM PANEL ALT 45 0 - 65 09/[address] CHEM PANEL AST 35 0 - 37 09/10 [facility]2018 [facility] CHEM PANEL Total 7.1 6.4 - 8.4 09/10 [facility] Protein [facility] CHEM PANEL Albumin Lvl 2.9 3.5 - 5.0 09/10 [facility] CHEM PANEL B/C Ratio 11 6 - 25 09/10 [facility]2018 [facility] CHEM PANEL A/G Ratio 0.7 0.7 - 1.6 09/10 [facility]2018 [facility] CHEM PANEL Globulin 4.2 2.7 - 4.2 09/[address] HEMATOLOGY Heparin Negative 1 Negative 09/10 Result [facility] Ab(SRIDEVI) (09/10/18 5:06 PM) Comment: [facility] Medical assay detects Center heparin antibodies of IgG isotype. Antibodies of other isotypes have been reported to cause heparin-induc ed thrombocytope davey. Therefore, if there is a strong clinical suspicion of HIT, additional study with a serotonin release assay is recommented. HEMATOLOGY Pat Od Value 0.127 09/10 [facility] HEMATOLOGY Pos CO Value 0.400 09/10 [facility]2018 [facility] HEMATOLOGY INR 1.08 0.85 - 09/10 [place] 1.17 [facility] HEMATOLOGY Thrombin 19.1 15.0 - 09/10 [place] Time 21.2 [facility] HEMATOLOGY D-Dimer 1.22 09/10 [place] [facility] HEMATOLOGY Fibrinogen 548 230 - 510 09/10 [place] Lvl /2018 [facility] HEMATOLOGY PTT 30.3 22.9 - 09/10 [place] 35.8 /2018 [facility] HEMATOLOGY PT 13.8 12.0 - 09/10 [facility] 14.7 /2018 [facility] IMMUNOLOGY IgA Lvl 615.0 68.0 - 09/10 [place] 378.0 [facility] URINE AND UA Glucose 50mg/dl 09/10 [facility] STOOL [facility] URINE AND UA Turbidity Marked Clear 09/10 [facility] [place] [facility] *ABN* [facility] (09/10/18 5:06 PM) [facility] URINE AND UA Color Yellow Yellow 09/10 [facility] [place] [facility] *NA* [facility] (09/10/18 5:06 PM) [facility] URINE AND UA Protein 30 mg/dL Negative 09/10 [facility] [place] [facility] mg/dL [facility] URINE AND UA pH 6.0 5.0 - 8.0 09/10 [facility] [address] [place] [address] URINE AND UA Ketones Trace Negative 09/10 [facility] [place] [facility] *ABN* [facility] (09/10/18 5:06 PM) [place] URINE AND UA Bili Negative Negative 09/10 [facility] *NA* [facility] (09/10/18 5:06 PM) [place] URINE AND UA Leuk Est Trace Negative 09/10 [facility] [place] [facility] *ABN* [facility] (09/10/18 5:06 PM) [facility] URINE AND UA <1.0 0.1 - 1.0 09/10 [facility] [place] [facility] Urobilinogen /[address] [place] [address] URINE AND UA Blood Small Negative 09/10 [facility] [place] [facility] *ABN* [facility] (09/10/18 5:06 PM) [facility] URINE AND UA Nitrite Negative Negative 09/10 [facility] [place] [facility] (09/10/18 5:06 PM) /2018 Medica l Center URINE AND UA Spec Grav 1.012 <=1.030 09/10 [facility] [place] [facility] URINE AND UA WBC 19 0 - 5 09/10 [facility] [address] [place] [address] URINE AND UA Sq Epi Few /LPF Few /LPF 09/10 [facility] [address] [place] [address] URINE AND UA RBC 1 0 - 2 09/10 [facility] [place] [facility] [address] [place] [address] URINE AND UA Mucus Few /LPF None Seen 09/10 [facility] STOOL /LPF /2018 [facility] HEMATOLOGY Bands 0.0 0.0 - 11.0 09/10 [place] [facility] HEMATOLOGY Large Plt Slight 09/10 [facility] HEMATOLOGY Atypical 0.0 <=0.0 % 09/10 [facility] Lymphs /2018 [facility] IMMUNOLOGY Striated 1:320 Neg:<1:40 09/10 Result [facility] Muscle IgG Comment: Medical Performed At: Center [facility]
[address] [place] [id number]<br/ >Kosta Tucker MD Ph:[phone] IMMUNOLOGY IgA Lvl 592.0 68.0 - 09/10 [place] 378.0 [facility] HEMATOLOGY Sed Rate 20 0 - 20 09/09 [facility] IMMUNOLOGY C-REACTIVE 5.2 <=2.9 mg/L 09/09 PROTEIN /2018 [facility] HEMATOLOGY PTT 32.0 22.9 - 09/08 35.8 /2018 [facility] HEMATOLOGY PT 13.5 12.0 - 09/08 14.7 /2018 [facility] HEMATOLOGY INR 1.05 0.85 - 09/08 1.17 /2018 [facility] ELECTROLYTE AGAP 15.8 10.0 - 09/08 S 20.0 [facility] ELECTROLYTE B/C Ratio 16 6 - 25 09/08 S [facility] ELECTROLYTE Globulin 4.2 2.7 - 4.2 09/08 S [facility] ELECTROLYTE A/G Ratio 0.7 0.7 - 1.6 09/08 S [facility] ELECTROLYTE Sodium Lvl 147 135 - 145 09/08 S [facility] ELECTROLYTE Potassium 3.8 3.5 - 5.1 09/08 S Lvl /2018 [facility] ELECTROLYTE Chloride Lvl 107 95 - 109 09/08 S [facility] ELECTROLYTE BUN 21 7 - 22 09/08 S [facility] ELECTROLYTE Glucose Lvl 144 70 - 99 09/08 S [facility] ELECTROLYTE Albumin Lvl 2.9 3.5 - 5.0 09/08 S [facility] ELECTROLYTE CO2 28 24 - 32 09/08 S [facility] ELECTROLYTE eGFR 40 09/08 Result S Comment: The [facility] eGFR is City calculated using the CKD-EPI [...] 137 0 - 37 09/08 MH S [facility] ELECTROLYTE ALT 67 0 - 65 09/08 MH S [facility] ELECTROLYTE Creatinine 1.33 0.50 - 04 MH S Lvl 1.40 [facility] ELECTROLYTE Bili Total 1.3 0.2 - 1.3 09/08 MH S [facility] ELECTROLYTE Total 7.1 6.4 - 8.4 09/08 MH S Protein /2018 [facility] ELECTROLYTE Alk Phos 195 39 - 136 09/08 S [facility] ELECTROLYTE Calcium Lvl 9.3 8.5 - 10.5 09/08 S [facility] HEMATOLOGY Basophils # 0.1 0.0 - 0.2 09/08 [facility] HEMATOLOGY Neutrophils 2.5 1.5 - 8.1 09/08 MH # /2018 [facility] HEMATOLOGY Eosinophils 0.2 0.0 - 0.5 09/08 MH # [facility] HEMATOLOGY Monocytes # 0.7 0.0 - 0.8 09/08 [facility] HEMATOLOGY Lymphocytes 3.3 1.0 - 5.5 09/08 MH # [facility] HEMATOLOGY Monocytes 9.8 2.0 - 12.0 09/08 [facility] HEMATOLOGY Eosinophils 2.5 0.0 - 4.0 09/08 [facility] HEMATOLOGY Basophils 2.0 0.0 - 1.0 09/08 [facility] HEMATOLOGY Lymphocytes 48.8 20.0 - 04 MH 40.0 [facility] HEMATOLOGY Segs 36.9 45.0 - 09/08 75.0 [facility] HEMATOLOGY MPV 11.3 7.4 - 10.4 09/08 [facility] HEMATOLOGY MCH 30.3 27.0 - 09/08 31.0 [facility] HEMATOLOGY Platelet 125 133 - 450 09/08 [facility] HEMATOLOGY RDW 13.9 11.5 - 09/08 14. [facility] HEMATOLOGY MCV 92.9 80.0 - 09/08 98.0 [facility] HEMATOLOGY MCHC 32.6 32.0 - 09/08 36.0 [facility] HEMATOLOGY WBC 6.8 3.7 - 10.4 09/08 [facility] HEMATOLOGY RBC 5.13 4.20 - 09/08 . [facility] HEMATOLOGY Hgb 15.5 12.0 - 09/08 16.0 [facility] HEMATOLOGY Hct 47.7 36.0 - 09/08 48.0 [facility] LIPIDS VLDL 24 09/08 [facility] LIPIDS LDL 45 <=99 mg/dL 09/08 (Calculated) [facility] LIPIDS CHD Risk 2.82 3.90 - 09/08 5.80 [facility] LIPIDS HDL 38 >=61 mg/dL 09/08 [facility] LIPIDS Trig 118 <=149 09/08 mg/dL [facility] LIPIDS Chol 107 <=199 09/08 mg/dL [facility] SPECIAL Hgb A1C 12.2 <=5.6 % 09/08 CHEMISTRY [facility] HEMATOLOGY MPV 9.7 7.4 - 10.4 08/19 [facility] HEMATOLOGY Platelet 163 133 - 450 08/19 [facility] HEMATOLOGY RDW 13.7 11.5 - 08/19 [place] 14. [facility] HEMATOLOGY Hgb 17.8 12.0 - 08/19 [place] 16.0 [facility] HEMATOLOGY Hct 52.9 36.0 - 08/19 [place] 48.0 [facility] HEMATOLOGY MCV 92.3 80.0 - 08/19 [place] 98.0 [facility] HEMATOLOGY RBC 5.73 4.20 - 08/19 [place] 5.40 [facility] HEMATOLOGY WBC 8.5 3.7 - 10.4 08/19 [facility] HEMATOLOGY MCHC 33.6 32.0 - 08/19 [facility] 36.0 [facility] HEMATOLOGY MCH 31.0 27.0 - 08/19 [facility] 31.0 [facility] CARDIAC BNP 98 <=100 08/19 [facility] ENZYMES pg/mL [facility] CHEM PANEL Phosphorus 3.4 2.5 - 4.5 08/19 [facility] CHEM PANEL Magnesium 1.9 1.8 - 2.4 08/19 [facility] CHEM PANEL eGFR 62 08/19 Result Comment: [facility] eGFR is Center calculated using [...] Calcium Lvl 8.8 8.5 - 10.5 08/19 [facility] CHEM PANEL CO2 23 24 - 32 08/19 [facility] CHEM PANEL Chloride Lvl 106 95 - 109 08/19 [facility] CHEM PANEL Potassium 4.6 3.5 - 5.1 08/19 Result [facility] Comment: [facility] Moderately Hemolyzed. CHEM PANEL Creatinine 0.94 0.50 - 08/19 [facility] Lvl 1.40 [facility] CHEM PANEL Sodium Lvl 138 135 - 145 08/19 2018 [facility] CHEM PANEL BUN 13 7 - 22 08/19 [facility] CHEM PANEL Glucose Lvl 160 70 - 99 08/19 [facility] CHEM PANEL AGAP 13.6 10.0 - 08/19 MH [place] 20.0 /2019 [facility] HEMATOLOGY Eosinophils 0.2 0.0 - 0.5 08/19 [place] # /2019 [facility] Center HEMATOLOGY Basophils # 0.1 0.0 - 0.2 08/19 [place] /2019 [facility] HEMATOLOGY Segs 47.9 45.0 - 08/19 [place] 75.0 /2019 [facility] HEMATOLOGY Lymphocytes 40.1 20.0 - 08/19 [place] 40.0 /2019 [facility] HEMATOLOGY Lymphocytes 3.9 1.0 - 5.5 08/19 [place] # /2019 [facility] HEMATOLOGY Monocytes # 0.9 0.0 - 0.8 08/19 [facility] HEMATOLOGY Monocytes 8.8 2.0 - 12.0 08/19 [facility] HEMATOLOGY Basophils 1.2 0.0 - 1.0 08/19 /2018 [facility] HEMATOLOGY Eosinophils 2.0 0.0 - 4.0 08/19 [facility] s /2018 [facility] HEMATOLOGY Neutrophils 4.7 1.5 - 8.1 08/19 [facility] s [facility] HEMATOLOGY INR 1.09 0.85 - 08/19 [place] 1.17 [facility] HEMATOLOGY PT 13.9 12.0 - 08/19 [place] 14.7 [facility] HEMATOLOGY PTT 31.0 22.9 - 08/19 [place] 35.8 2019 [facility] HEMATOLOGY MCV 93.0 80.0 - 08/19 [place] 98.0 /2019 [facility] HEMATOLOGY MCH 31.1 27.0 - 08/19 [place] 31.0 2019 [facility] HEMATOLOGY RDW 13.7 11.5 - 08/19 [place] 14.5 2019 [facility] HEMATOLOGY MCHC 33.4 32.0 - 08/19 [place] 36.0 2019 [facility] HEMATOLOGY Platelet 77 133 - 450 08/19 /2018 [facility] HEMATOLOGY MPV 9.9 7.4 - 10.4 08/19 [facility] HEMATOLOGY Hct 49.7 36.0 - 08/19 [place] 48.0 /2019 [facility] HEMATOLOGY Hgb 16.6 12.0 - 08/19 [place] 16.0 /2019 [facility] HEMATOLOGY RBC 5.35 4.20 - 08/19 [place] 5.40 /2019 [facility] HEMATOLOGY WBC 9.7 3.7 - 10.4 08/19 [facility] PARATHYROID Ca Ion WB 1.02 1.05 - 08/19 [facility] PROFILE 1. [facility] PARATHYROID Ca Norm WB 0.98 1.05 - 08/19 [facility] PROFILE . [facility] URINE AND Occult Bld Negative Negative 08/19 [facility] STOOL Stl (08/19/18 4:40 AM) [facility] Culture: Normal Enteric Era Isolated 08/19 [facility] Stool No Salmonella Or Shigella [facility] CHEM PANEL Alk Phos 132 39 - 136 08/[address] CHEM PANEL A/G Ratio 0.6 0.7 - 1.6 08/[address] CHEM PANEL ALT 30 0 - 65 08/[address] CHEM PANEL Total 6.9 6.4 - 8.4 08/18 [facility] Protein [facility] CHEM PANEL Albumin Lvl 2.6 3.5 - 5.0 08/[address] CHEM PANEL Globulin 4.3 2.7 - 4.2 08/[address] CHEM PANEL Bili Direct <0.1 0.0 - 0.3 08/[address] CHEM PANEL Bili Total 0.5 0.2 - 1.3 08/[address] CHEM PANEL Bili >0.4 0.0 - 1.0 08/18 [facility] Indirect 2018 [facility] CHEM PANEL AST 21 0 - 37 08/[address] CHEM PANEL Calcium Lvl 8.5 8.5 - 10.5 08/[address] CHEM PANEL eGFR 71 08/18 [facility] Comment: The Medical eGFR is Center [...] BUN 13 7 - 22 08/[address] CHEM PANEL Glucose Lvl 162 70 - 99 08/[address] CHEM PANEL CO2 27 24 - 32 08/[address] CHEM PANEL Potassium 3.6 3.5 - 5.1 08/18 [facility] [place] [facility] CHEM PANEL Sodium Lvl 142 135 - 145 08/[address] CHEM PANEL Chloride Lvl 108 95 - 109 08/[address] CHEM PANEL Creatinine 0.83 0.50 - 08/18 [facility] [place] [facility] 1.40 [facility] CHEM PANEL AGAP 10.6 10.0 - 08/18 [facility] 20.0 [facility] CHEM PANEL Magnesium 1.8 1.8 - 2.4 08/18 [facility] [place] [facility] CHEM PANEL Phosphorus 3.6 2.5 - 4.5 08/[address] HEMATOLOGY Neutrophils 3.9 1.5 - 8.1 08/18 [facility] HEMATOLOGY Eosinophils 2.5 0.0 - 4.0 08/[address] HEMATOLOGY Basophils 1.9 0.0 - 1.0 08/[address] HEMATOLOGY Monocytes # 0.6 0.0 - 0.8 08/18 [facility] /[address] [place] [address] HEMATOLOGY Lymphocytes 3.8 1.0 - 5.5 08/18 [facility] HEMATOLOGY Eosinophils 0.2 0.0 - 0.5 08/18 [facility] [address] [place] [address] HEMATOLOGY Basophils # 0.2 0.0 - 0.2 08/[address] HEMATOLOGY Lymphocytes 44.0 20.0 - 08/18 [place] 40.0 [facility] HEMATOLOGY Segs 45.3 45.0 - 08/18 [place] 75.0 [facility] HEMATOLOGY Monocytes 6.3 2.0 - 12.0 08/[address] HEMATOLOGY Hct 49.2 36.0 - 08/18 MH [place] 48.0 2019 [facility] HEMATOLOGY Hgb 17.0 12.0 - 08/18 [place] 16.0 2019 [facility] HEMATOLOGY RBC 5.30 4.20 - 08/18 [place] 5.40 /2019 [facility] HEMATOLOGY WBC 8.7 3.7 - 10.4 08/18 /2018 [facility] HEMATOLOGY MCV 92.8 80.0 - 08/18 [place] 98.0 [facility] HEMATOLOGY MPV 9.7 7.4 - 10.4 08/18 /2019 [facility] HEMATOLOGY RDW 13.6 11.5 - 08/18 [facility] 14.5 2019 [facility] HEMATOLOGY Platelet 161 133 - 450 08/18 [facility] /2018 [facility] HEMATOLOGY MCHC 34.6 32.0 - 08/18 [place] 36.0 [facility] HEMATOLOGY MCH 32.1 27.0 - 08/18 [place] 31.0 [facility] PARATHYROID Ca Norm WB 1.05 1.05 - 08/18 [facility] PROFILE 1. [facility] PARATHYROID Ca Ion WB 1.06 1.05 - 08/18 [facility] PROFILE 1. [facility] HEMATOLOGY Monocytes # 0.9 0.0 - 0.8 08/17 [facility] s /2019 [facility] HEMATOLOGY Eosinophils 0.2 0.0 - 0.5 08/17 [facility] /2019 [facility] HEMATOLOGY Lymphocytes 5.1 1.0 - 5.5 08/17 [place] # /2019 [facility] HEMATOLOGY Basophils # 0.1 0.0 - 0.2 08/17 [facility] s /2019 [facility] HEMATOLOGY Monocytes 7.6 2.0 - 12.0 08/17 [facility] /2019 [facility] HEMATOLOGY Segs 44.9 45.0 - 08/17 [place] 75.0 2019 [facility] HEMATOLOGY Lymphocytes 44.2 20.0 - 08/17 [place] 40.0 2019 [facility] HEMATOLOGY Basophils 1.3 0.0 - 1.0 08/17 [facility] /2019 [facility] HEMATOLOGY Eosinophils 2.0 0.0 - 4.0 08/17 [place] /2019 [facility] HEMATOLOGY Neutrophils 5.2 1.5 - 8.1 08/17 [facility] # /2019 [facility] ELECTROLYTE AGAP 11.9 10.0 - 08/16 [...] Sodium Lvl 142 135 - 145 08/16 [facility] ELECTROLYTE Potassium 3.9 3.5 - 5.1 08/16 [facility] ELECTROLYTE Chloride Lvl 104 95 - 109 08/16 [facility] ELECTROLYTE CO2 30 24 - 32 08/16 [facility]2018 [facility] ELECTROLYTE Calcium Lvl 9.6 8.5 - 10.5 08/16 [place] 2018 [facility] ELECTROLYTE BUN 16 7 - 22 08/[address] ELECTROLYTE Glucose Lvl 121 70 - 99 08/16 [facility]2018 [facility] ELECTROLYTE Creatinine 0.91 0.50 - 08/16 [facility] Lvl 1.40 [facility] HEMATOLOGY RBC Morph Normal 08/16 [facility] (08/16/18 3:35 PM) [facility] HEMATOLOGY Plt Morph Normal 08/16 [facility] (08/16/18 3:35 PM) [facility] HEMATOLOGY PTT 32.0 22.9 - 08/16 [facility] 35.8 [facility] HEMATOLOGY PT 12.6 12.0 - 08/16 [facility] 14.7 [facility] HEMATOLOGY INR 0.96 0.85 - 08/16 [facility] 1.17 [facility] BEDSIDE Gluc POC 148.0 65 - [...] Globulin 3.3 2.0 - 4.0 03/25 Normal [facility] Center CHEMISTRY Total 5.4 6.4 - 8.4 03/25 [facility]OW [facility] CHEMISTRY Albumin Lvl 2.1 3.5 - 5.0 03/25 LOW Medical [facility] CHEMISTRY ALT 131.0 0 - 65 03/25 [facility] Medical Center CHEMISTRY Alk Phos 360.0 [...] on the clinical recommendatio ns of the [place] [employer]. CHEMISTRY BUN 21.0 7 - 22 03/25 Normal [facility] Center CHEMISTRY Creatinine 1.7 0.5 - 1.4 03/25 [place] Lvl [facility] Center CHEMISTRY AGAP 18.1 10.0 [...] Ratio 0.7 0.7 - 1.6 03/24 Normal [facility] Center CHEMISTRY Bili 0.2 0.0 - 1.0 03/24 Normal [place] Indirect [facility] Center CHEMISTRY Globulin 3.2 2.0 - 4.0 03/24 Normal Medical Center CHEMISTRY Total 5.6 6.4 - 8.4 03/24 LOW [place] Protein [facility] CHEMISTRY Albumin Lvl 2.4 3.5 - 5.0 03/24 LOW Medical Center CHEMISTRY Bili Direct 0.2 0.0 - 0.3 03/24 Normal [facility] Center CHEMISTRY AST 345.0 0 [...] 8.5 - 10.5 03/24 [place] [facility] CHEMISTRY Sodium Lvl 142.0 135 - 145 03/24 Normal [facility] CHEMISTRY BUN 23.0 7 - 22 03/24 [place] [facility] CHEMISTRY Creatinine 1.7 0.5 - 1.4 03/24 HI [facility] Lvl [facility] CHEMISTRY Glucose Lvl 119.0 03/24 NA <sup>5</sup>I [place] nterpretive Medical Data: Center Reference Ranges : 0 - 7 days : 41 - 90 mg/dL 7 days - 150 yrs : 70 - 99 mg/dL (fasting), based on the clinical recommendatio ns of the [place] [employer]. HEMATOLOGY PT 14.8 12.0 - 03/24 [facility] [place] 14.7 [facility] HEMATOLOGY INR 1.16 0.85 - 03/24 [...] 0.0 - 0.2 03/24 [place] [facility] HEMATOLOGY Segs-Bands # 4.1 1.5 - 8.1 03/24 Normal [place] [facility] Center HEMATOLOGY Lymphocytes 2.8 1.0 - 5.5 03/24 [place] # [facility] Center HEMATOLOGY Monocytes # 0.8 0.0 - 0.8 03/24 [place] [facility] HEMATOLOGY Eosinophils 1.8 0.0 - 0.5 03/24 [facility] [place] # [facility] Center HEMATOLOGY Lymphocytes 28.5 20.0 - 03/24 Normal [place] 40.0 [facility] HEMATOLOGY Monocytes 8.6 2.0 - 12.0 03/24 Normal [facility] HEMATOLOGY Eosinophils 19.0 0.0 - 4.0 03/24 [place] [facility] HEMATOLOGY Basophils 1.3 0.0 - 1.0 03/24 [facility] Medical Center HEMATOLOGY Segs 42.6 45.0 - 03/24 [facility] [place] 75.0 /2010 Medical Center HEMATOLOGY WBC 9.7 3.7 - 10.4 03/24 Normal [facility] Center HEMATOLOGY RBC 3.67 4.20 - 03/24 [facility] [place] 5.40 /2010 Medical Center HEMATOLOGY MCHC 34.9 32.0 - 03/24 [facility] [place] 36.0 Medical Center HEMATOLOGY RDW 15.1 11.5 - 03/24 [facility] [place] 14.5 /2010 Medical Center HEMATOLOGY Platelet 169.0 133 - 450 03/24 Normal [facility] HEMATOLOGY MCV 90.5 81.0 - 03/24 [facility] 99.0 Medical [place] HEMATOLOGY MCH 31.6 27.0 - 03/24 [facility] [place] 31.0 [facility] Center HEMATOLOGY MPV 9.5 7.4 - 10.4 03/24 Normal [facility] HEMATOLOGY Hgb 11.6 12.0 - 03/24 [facility] [place] 16.0 [facility] Center HEMATOLOGY Hct 33.2 36.0 - 03/24 [facility] [place] 48.0 [facility] Center IMMUNOLOGY Hep Bs Ag Negative >Negative 03/24 NA [facility] *NA* /2010 Medical (03/24/2011 05:08:00) ?? Center CHEMISTRY Amylase Lvl 36.0 25 - 115 03/23 Normal [facility] Center CHEMISTRY Lipase Lvl 242.0 73 - 393 03/23 Normal [facility] Center CHEMISTRY Glucose Lvl 97.0 03/23 NA <sup>6</sup>I T ex nterpretive Medical Data: Center Reference Ranges : 0 - 7 days : 41 - 90 mg/dL 7 days - 150 yrs : 70 - 99 mg/dL (fasting), based on the clinical recommendatio ns of the [place] [employer]. CHEMISTRY BUN 22.0 7 - 22 03/23 Normal [facility] Center CHEMISTRY Creatinine 1.5 0.5 - 1.4 03/23 [facility] CHEMISTRY CO2 20.0 24 - [...] 4.20 - 10/23 LOW [place] 5.40 /2010 [facility] HEMATOLOGY Large Plt Slight >None Seen 03/23 ABN [place] *ABN* Medical (03/23/2011 05:24:00) ?? Center HEMATOLOGY Lymphocytes 2.1 1.0 - 5.5 03/23 [place] [facility] HEMATOLOGY Segs-Bands # 2.7 1.5 - 8.1 03/23 Normal [place] [facility] HEMATOLOGY Monocytes # 0.9 0.0 - 0.8 03/23 [place] [facility] HEMATOLOGY Plt Morph Normal 03/23 Normal [facility] (03/23/2011 05:24:00) ?? [facility] HEMATOLOGY Eosinophils 15.0 0.0 - 4.0 03/23 [facility] [place] [facility] HEMATOLOGY Atypical 0.0 <<=0.0 03/23 Normal [facility] Lymphs [facility] HEMATOLOGY Bands 1.0 0.0 - 11.0 03/23 Normal [facility] HEMATOLOGY Basophils 1.0 0.0 - 1.0 03/23 Normal [facility] HEMATOLOGY Eosinophils 1.0 0.0 - 0.5 03/23 [facility] [place] [facility] HEMATOLOGY Lymphocytes 31.0 20.0 - 03/23 Normal [place] 40.0 [facility] HEMATOLOGY Monocytes 13.0 2.0 - 12.0 03/23 [facility] [place] [facility] HEMATOLOGY Segs 39.0 45.0 - 03/23 LOW [place] 75.0 [facility] HEMATOLOGY Basophils # 0.1 0.0 - 0.2 03/23 [place] [facility] IMMUNOLOGY Prealbumin 10.0 18.0 - 03/23 LOW [place] 45.0 [facility] Center URINALYSIS UA ?? 0.1 - 1.0 03/22 NA [facility] Urobilinogen [facility] URINALYSIS UA Hyal Cast 3.0 0 - 2 03/22 [facility] [place] [facility] URINALYSIS UA Amorph Occasional /HPF >None [...] Center URINALYSIS UA Blood Moderate >Negative 03/22 [facility] *ABN* Medical (03/22/2011 17:20:00) ?? Center URINALYSIS UA Glucose Negative mg/dL >Negative 03/22 NA [facility] *NA* Medical (03/22/2011 17:20:00) ?? Center URINALYSIS [...] IMMUNOLOGY Hep B Core Negative >Negative 03/22 [facility] [place] IgM *NA* Medical (03/22/2011 09:40:00) ?? Center IMMUNOLOGY Hep C Ab Negative >Negative 03/22 NA [place] *NA* Medical (03/22/2011 09:40:00) ?? Center IMMUNOLOGY Hep Bs Ag See Note 9 >Negative 03/22 Normal <sup>9</sup>R [facility] (03/22/2011 09:40:00) ?? esult Medical Comment: [facility] Center Talked to Nyasia Mcdaniels Nurse will recollect in the morning 03/23/2011 16:39 RG CHEMISTRY T4 Free 1.67 0.76 - 03/22 [facility] [place] 1.46 Medical Center CHEMISTRY TSH 0.044 0.360 - 03/22 [facility] [place] 3.740 Medical Center BEDSIDE Comment1 Sliding 03/15 NA [facility] GLUCOSE Scale Medical TESTING Center BEDSIDE Gluc POC 152.0 65 - 110 03/15 [place] <sup>1</sup>I [facility] GLUCOSE Lifsc nterpretive Medical TESTING Data: Center Upper Reportable Limit: 200 mg/dL. BEDSIDE Comment1 Notify 03/[address] [facility] GLUCOSE RN/MD Medical TESTING Center BEDSIDE [...] Sodium Lvl 147.0 135 - 145 03/15 [facility] [place] [facility] CHEMISTRY Creatinine 1.4 0.5 - 1.4 03/15 Normal [place] Lvl Medical Center CHEMISTRY Chloride Lvl 111.0 95 - 109 03/15 [facility] [place] [facility] CHEMISTRY Calcium Lvl 8.1 8.5 - 10.5 03/15 [place] [facility] CHEMISTRY Glucose Lvl 97.0 03/15 NA <sup>12</sup> [place] Interpretive Medical Data: Center Reference Ranges : 0 - 7 days : 41 - 90 mg/dL 7 days - 150 yrs : 70 - 99 mg/dL (fasting), based on the clinical recommendatio ns of the [place] [employer]. CHEMISTRY BUN 21.0 7 - 22 03/15 Normal [place] [facility] Center CHEMISTRY Magnesium 1.7 1.8 - 2.4 03/15 LOW [place] Lvl /2010 Medical Center HEMATOLOGY Lymphocytes 16.7 20.0 - 03/15 LOW [place] 40.0 /2010 Medical Center HEMATOLOGY Monocytes 12.4 2.0 - 12.0 03/15 [facility] [place] [facility] HEMATOLOGY Segs 63.3 45.0 - 03/15 Normal [place] 75.0 Medical Center HEMATOLOGY Eosinophils 0.6 0.0 - 0.5 03/15 [facility] [place] # [facility] HEMATOLOGY Monocytes # 1.1 0.0 - 0.8 03/15 [facility] [place] [facility] [place] HEMATOLOGY Basophils # 0.1 0.0 - 0.2 03/15 [place] [facility] [place] HEMATOLOGY Lymphocytes 1.5 1.0 - 5.5 03/15 [place] # [facility] HEMATOLOGY Segs-Bands # 5.8 1.5 - 8.1 03/15 Normal [place] [facility] HEMATOLOGY Basophils 1.3 0.0 - 1.0 03/15 [facility] [place] [facility] HEMATOLOGY Eosinophils 6.3 0.0 - 4.0 03/15 [facility] [place] [facility] [place] HEMATOLOGY MCH 31.6 27.0 - 03/15 [facility] [place] 31.0 /2010 Medical Center HEMATOLOGY [...] 3.8 3.5 - 5.1 03/14 Normal <sup>5</sup>R [facility] esult Medical Comment: Center Collection date/time has been modified to: 01:50:00. Previous collection date/time: 01:50:00. CHEMISTRY BUN 20.0 7 - 22 03/14 Normal <sup>10</sup> Result Medical Comment: Center Collection date/time has been modified to: 01:50:00. Previous collection date/time: 01:50:00. CHEMISTRY Creatinine 1.4 0.5 - 1.4 03/14 Normal <sup>9</sup>R [facility] [place] [facility] esult Medical Comment: Center Collection date/time has been modified to: 01:50:00. Previous collection date/time: 01:50:00. CHEMISTRY Glucose Lvl 91.0 03/14 NA <sup>13</sup> [facility] Result Medical Comment: Center Collection date/time has been modified to: 01:50:00. Previous collection date/time: 01:50:00.<br/ ><sup>14</sup >Interpretive Data: Reference Ranges : 0 - 7 days : 41 - 90 mg/dL 7 days - 150 yrs : 70 - 99 mg/dL (fasting), based on the clinical recommendatio ns of the [place] [employer].< br/><sup>15</ sup>Interpret kimberly Data: Reference Ranges : 0 - 7 days : 41 - 90 mg/dL 7 days - 150 yrs : 70 - 99 mg/dL (fasting), based on the clinical recommendatio ns of the [place] [employer]. CHEMISTRY Magnesium 1.2 1.8 - [...] to: 01:50:00. Previous collection date/time: 01:50:00. HEMATOLOGY [place] Cell Slight 51 >None Seen 03/14 ABN [...] AST 27.0 0 - 37 03/13 Normal [facility] CHEMISTRY Globulin 3.2 2.0 - 4.0 03/13 Normal [facility] CHEMISTRY Albumin Lvl 2.9 3.5 - 5.0 03/13 LOW [facility] CHEMISTRY ALT 32.0 0 - 65 03/13 Normal [facility] CHEMISTRY Total 6.1 6.4 - 8.4 03/13 LOW Protein [facility] CHEMISTRY A/G Ratio 0.9 0.7 - 1.6 03/13 Normal Medical Center CHEMISTRY Bili 0.3 0.0 - 1.0 03/13 Normal [facility] Medical Center CHEMISTRY Bili Total 0.4 0.2 - 1.3 03/13 Normal Medical Center CHEMISTRY Bili Direct 0.1 0.0 - 0.3 03/13 Normal [facility] Center CHEMISTRY Alk Phos 103.0 [...] 03/07 [place] <sup>2</sup>I [facility] GLUCOSE [place] nterpretive Medical TESTING Data: Center Upper Reportable [...] Potassium 3.8 3.5 - 5.1 03/05 Normal [facility] [place] [facility] CHEMISTRY Calcium Lvl 8.4 8.5 - 10.5 10/ [place] [facility] [place] CHEMISTRY AGAP 15.8 10.0 - 10 Normal [place] 20.0 Medical Center CHEMISTRY CO2 25.0 24 - 32 10/ Normal [facility] Center CHEMISTRY BUN 16.0 7 [...] on the clinical recommendatio ns of the [place] [employer]. HEMATOLOGY Segs 45.6 45.0 - 03/05 Normal [place] 75.0 /2010 Medical Center HEMATOLOGY Monocytes 10.4 2.0 - 12.0 10 Normal [facility] HEMATOLOGY Eosinophils 3.5 0.0 - 4.0 10 [place] [facility] HEMATOLOGY Lymphocytes 38.5 20.0 - 10 Normal [place] 40.0 Medical Center HEMATOLOGY Eosinophils 0.4 0.0 - 0.5 10 Normal [place] # [facility] Center HEMATOLOGY Basophils # 0.2 0.0 - 0.2 10 [place] [facility] HEMATOLOGY Basophils 2.0 0.0 - 1.0 10 [place] Medical [place] HEMATOLOGY Segs-Bands # 5.8 1.5 - 8.1 [...] HEMATOLOGY WBC 12.7 3.7 - 10.4 10 [facility] Medical Center HEMATOLOGY MCH 32.0 27.0 - 10 [facility] [place] 31.0 Medical Center HEMATOLOGY Hct 28.5 36.0 - 10 LOW [place] 48.0 Medical Center HEMATOLOGY MCHC 34.6 32.0 - 10 Normal [place] 36.0 Medical Center HEMATOLOGY Platelet 221.0 133 - 450 03/05 Normal Medical Center HEMATOLOGY RDW 16.5 11.5 - 03/05 [facility] [place] 14. Medical Center HEMATOLOGY MPV 9.1 7.4 - 10.4 10 Normal Medical Center HEMATOLOGY Platelet 270.0 133 - 450 03/03 Normal Medical Center HEMATOLOGY RDW 16.4 11. - 03/03 [facility] [place] 14. Medical Center HEMATOLOGY MCHC 33.6 32.0 - 10 Normal [place] 36.0 Medical Center HEMATOLOGY MCH 31.8 27.0 - 03/03 [facility] [place] 31.0 Medical Center HEMATOLOGY WBC 12.4 3.7 - 10.4 10 [place] Medical Center HEMATOLOGY MPV 9.4 7.4 - 10.4 10 Normal Medical Center HEMATOLOGY MCV 94.6 81.0 - 10 [facility] [place] 99.0 Medical Center HEMATOLOGY Hct 30.8 36.0 - 10 [facility] [place] 48.0 Medical Center HEMATOLOGY Hgb 10.4 12.0 - 10 [facility] [place] 16.0 Medical Center HEMATOLOGY RBC 3.25 4.20 - 10 [facility] [place] . Medical Center HEMATOLOGY RDW 16.0 11.5 - 03/02 [facility] [place] 14. Medical Center HEMATOLOGY MPV 9.1 7.4 - 10.4 03/02 Normal Medical Center HEMATOLOGY Platelet 283.0 133 - 450 03/02 Normal Medical Center HEMATOLOGY RBC 3.23 4.20 - 10 [facility] [place] 5.40 Medical Center HEMATOLOGY MCV 94.5 81.0 - 10/ Normal [place] 99.0 Medical Center HEMATOLOGY Hct 30.5 36.0 - 10 [facility] [place] 48.0 Medical Center HEMATOLOGY Hgb [...] URINALYSIS UA Ketones Negative mg/dL >Negative 03/01 [facility] Medical (03/01/2011 15:38:00) ?? Center URINALYSIS UA Glucose Negative mg/dL >Negative 03/01 [facility] Medical (03/01/2011 15:38:00) ?? Center URINALYSIS [...] Cast 1.0 0 - 2 03/01 Normal [facility] URINALYSIS UA Protein 10 mg/dL >Negative 03/01 [place] *[place]N* Medical (03/01/2011 15:38:00) ?? Center Microbiolog Culture: 03/01 y Urine [facility] HEMATOLOGY Lymphocytes 5.7 1.0 - 5.5 02/28 [place] # [facility] HEMATOLOGY Segs-Bands # 4.8 1.5 - 8.1 02/28 Normal [facility] HEMATOLOGY Basophils 1.0 0.0 - 1.0 02/28 Normal [facility] HEMATOLOGY Monocytes 8.9 2.0 - 12.0 02/28 Normal [facility] HEMATOLOGY Eosinophils 2.8 0.0 - 4.0 02/28 [place] [facility] [place] HEMATOLOGY Lymphocytes 47.3 20.0 - 02/28 HI [place] 40.0 Medical Center HEMATOLOGY Segs 40.0 45.0 - 02/28 LOW [place] 75.0 Medical Center HEMATOLOGY Basophils # 0.1 0.0 - 0.2 02/28 Normal s [facility] Center HEMATOLOGY Monocytes # 1.1 0.0 - 0.8 02/28 [place] [facility] Center HEMATOLOGY Eosinophils 0.3 0.0 - 0.5 02/28 [place] [facility] Center CHEMISTRY Globulin 2.8 2.0 - 4.0 02/27 Normal [facility] Center CHEMISTRY B/C Ratio 14.0 6 - 25 02/27 Normal [facility] Center CHEMISTRY AGAP 13.8 10.0 - 02/27 Normal [place] 20.0 [facility] Center CHEMISTRY A/G Ratio 0.8 0.7 - 1.6 02/27 Normal [facility] CHEMISTRY Total 5.0 6.4 - 8.4 02/27 LOW [facility] CHEMISTRY Calcium Lvl 8.4 8.5 - 10.5 02/27 LOW Medical Center CHEMISTRY ALT 24.0 0 - 65 02/27 Normal [facility] CHEMISTRY Albumin Lvl 2.2 3.5 - 5.0 02/27 LOW [facility] CHEMISTRY Bili Total 0.3 0.2 - 1.3 02/27 Normal [facility] CHEMISTRY AST 21.0 0 - 37 02/27 Normal [facility] CHEMISTRY Alk Phos 98.0 39 - 136 02/27 Normal [facility] Center CHEMISTRY CO2 28.0 24 - 32 02/27 Normal [facility] CHEMISTRY BUN 10.0 7 - 22 02/27 Normal [facility] CHEMISTRY Potassium 3.8 3.5 - 5.1 02/27 Normal [facility] [place] [facility] CHEMISTRY Sodium Lvl 143.0 135 - 145 02/27 Normal [facility] CHEMISTRY Creatinine 0.7 0.5 - 1.4 02/27 Normal [facility] [place] [facility] Medical [place] CHEMISTRY Glucose Lvl 119.0 02/27 NA <sup>6</sup>I [place] nterpretive Medical Data: Center Reference Ranges : 0 - 7 days : 41 - 90 mg/dL 7 days - 150 yrs : 70 - 99 mg/dL (fasting), based on the clinical recommendatio ns of the [place] [employer]. CHEMISTRY Chloride Lvl 105.0 95 - 109 02/27 Normal [facility] HEMATOLOGY Monocytes # 0.9 0.0 - 0.8 02/27 [facility] HEMATOLOGY Eosinophils 0.3 0.0 - 0.5 02/27 [place] [facility] [place] HEMATOLOGY Lymphocytes 3.3 1.0 - 5.5 02/27 [place] # [facility] HEMATOLOGY Basophils # 0.1 0.0 - 0.2 02/27 Normal [facility] HEMATOLOGY Basophils 1.2 0.0 - 1.0 02/27 [facility] HEMATOLOGY Segs-Bands # 6.0 1.5 - 8.1 02/27 Normal [facility] [place] HEMATOLOGY Monocytes 8.3 2.0 - 12.0 02/27 Normal [facility] HEMATOLOGY Eosinophils 3.1 0.0 - 4.0 09/29 Normal [facility] HEMATOLOGY Segs 56.6 45.0 - 02/27 [...] 02/26 [place] <sup>2</sup>I [facility] GLUCOSE [facility] nterpretive Medical TESTING Data: Center Upper Reportable Limit: 200 mg/dL. BEDSIDE Gluc POC 140.0 65 - 110 02/26 [place] <sup>3</sup>I [facility] GLUCOSE [facility] nterpretive Medical TESTING Data: Center Upper Reportable Limit: 200 mg/dL. CHEMISTRY AGAP 15.6 10.0 - 02/26 Normal [facility] 20.0 [facility] Center CHEMISTRY CO2 25.0 24 - 32 02/26 Normal [facility] Center CHEMISTRY Calcium Lvl 7.9 8.5 - 10.5 02/26 LOW [facility] Center CHEMISTRY Sodium Lvl 142.0 135 - 145 02/26 Normal [facility] CHEMISTRY Potassium 3.6 3.5 - 5.1 02/26 Normal [facility] [place] [facility] Center CHEMISTRY Creatinine 0.5 0.5 - 1.4 02/26 Normal [facility] [place] [facility] Center CHEMISTRY Chloride Lvl 105.0 95 - 109 02/26 Normal [facility] Center CHEMISTRY BUN 9.0 7 - 22 02/26 Normal [facility] Center CHEMISTRY Glucose Lvl 120.0 02/26 NA <sup>4</sup>I T ex nterpretive Medical Data: Center Reference Ranges : 0 - 7 days : 41 - 90 mg/dL 7 days - 150 yrs : 70 - 99 mg/dL (fasting), based on the clinical recommendatio ns of the [place] [employer]. HEMATOLOGY Hgb 10.5 12.0 - [...] on the clinical recommendatio ns of the [place] [employer]. CHEMISTRY Potassium 3.7 3.5 - 5.1 02/24 Normal [facility] Center CHEMISTRY AGAP 15.7 10.0 - 02/24 [facility] 20.0 Medical Center HEMATOLOGY Hct 30.7 36.0 - 02/24 [facility] 48.0 Medical Center HEMATOLOGY Hgb 10.3 12.0 - 02/24 [facility] 16.0 Medical Center HEMATOLOGY Sed Rate 105.0 0 - 20 02/24 [place] [facility] CHEMISTRY Magnesium 1.7 1.8 - 2.4 02/21 LOW [facility] Medical Center CHEMISTRY Ca Norm mgdL 4.64 4.65 - 02/21 [facility] 5. Medical Center CHEMISTRY Ca Ion 1.1 1.16 - 02/21 [facility] 1. Medical Center CHEMISTRY Ca Norm 1.16 1.16 - 02/21 Normal [facility] 1.30 Medical Center CHEMISTRY Ca Ion mgdL 4.4 4.65 - 02/21 LOW [place] 5.20 /2010 Medical Center CHEMISTRY AGAP 16.9 10.0 - 02/21 Normal [place] 20.0 Medical Center CHEMISTRY BUN 6.0 7 - 22 02/21 LOW [facility] Center CHEMISTRY Creatinine 0.4 0.5 - 1.4 02/21 LOW [facility] Lvl Medical Center CHEMISTRY Glucose Lvl 154.0 02/21 NA <sup>6</sup>I [place] nterpretive Medical Data: Center Reference Ranges : 0 - 7 days : 41 - 90 mg/dL 7 days - 150 yrs : 70 - 99 mg/dL (fasting), based on the clinical recommendatio ns of the [place] [employer]. CHEMISTRY Potassium 4.9 3.5 - 5.1 02/21 Normal [facility] Lvl Medical Center CHEMISTRY Sodium Lvl 138.0 135 - 145 02/21 Normal [facility] Center CHEMISTRY Calcium Lvl 7.7 8.5 - 10.5 02/21 LOW Medical Center CHEMISTRY Chloride Lvl 107.0 95 - 109 02/21 Normal [facility] Center CHEMISTRY CO2 19.0 24 - 32 02/21 LOW [facility] Center CHEMISTRY Phosphorus 3.7 2.5 - 4.5 02/21 Normal [facility] Center HEMATOLOGY Eosinophils 0.6 0.0 - 0.5 02/21 [facility] [place] # [facility] HEMATOLOGY Monocytes # 0.9 0.0 - 0.8 02/21 [facility] [place] [facility] HEMATOLOGY Basophils # 0.0 0.0 - 0.2 02/21 [place] [facility] HEMATOLOGY Eosinophils 6.9 0.0 - 4.0 02/21 [facility] [place] [facility] HEMATOLOGY Monocytes 9.6 2.0 - 12.0 02/21 Normal [facility] HEMATOLOGY Segs-Bands # 5.2 1.5 - 8.1 02/21 Normal Medical [place] HEMATOLOGY Basophils 0.3 0.0 - 1.0 02/21 Normal [facility] Center HEMATOLOGY Lymphocytes 2.3 1.0 [...] Center HEMATOLOGY MCH 32.7 27.0 - 02/21 [facility] [place] 31.0 Medical Center HEMATOLOGY RBC [...] Ca Norm mgdL 4.08 4.65 - 02/19 [facility] [place] 5. Medical Center CHEMISTRY Ca Ion mgdL 4.12 4.65 - 02/19 LOW [place] 5.20 Medical Center CHEMISTRY Ca Ion 1.03 1.16 - 02/19 LOW [place] 1.30 Medical Center CHEMISTRY AST 66.0 0 - 37 02/19 [facility] Medical Center CHEMISTRY Bili Total 0.8 0.2 - 1.3 02/19 Normal Medical Center CHEMISTRY Albumin Lvl 2.3 3.5 - 5.0 02/19 LOW Medical Center CHEMISTRY Total 4.8 6.4 - 8.4 02/19 LOW [place] [facility] CHEMISTRY ALT 67.0 0 - 65 02/19 [facility] Center CHEMISTRY Globulin 2.5 2.0 - 4.0 02/19 Normal [facility] CHEMISTRY A/G Ratio 0.9 0.7 - 1.6 02/19 Normal [facility] CHEMISTRY Alk Phos 155.0 39 - 136 02/19 [facility] CHEMISTRY B/C Ratio 20.0 6 - 25 02/19 Normal [facility] [place] HEMATOLOGY PTT 29.4 22.9 - 02/19 Normal [...] THERAPY. HEMATOLOGY RBC 3.4 4.20 - 02/19 [facility] [place] 5.40 /2010 [facility] Center HEMATOLOGY MCH 32.2 27.0 - 02/19 [facility] [place] 31.0 [facility] HEMATOLOGY MCV 95.7 81.0 - 02/19 Normal [facility] 99.0 /2010 [facility] HEMATOLOGY MCHC 33.6 32.0 - 02/19 [facility] [place] 36.0 /2010 [facility] HEMATOLOGY RDW 16.7 11.5 - 02/19 [facility] [place] 14.5 [facility] HEMATOLOGY MPV 7.8 7.4 - 10.4 02/19 Normal [facility] Center HEMATOLOGY Platelet 173.0 133 - 450 02/19 Normal [facility] HEMATOLOGY WBC 7.4 3.7 - 10.4 02/19 Normal [facility] HEMATOLOGY Monocytes 8.7 2.0 - 12.0 02/19 Normal [facility] HEMATOLOGY Lymphocytes 15.6 20.0 - 02/19 [facility] [place] 40.0 /2010 [facility] HEMATOLOGY Lymphocytes 1.1 1.0 - 5.5 [...] 0.6 0.0 - 1.0 02/19 Normal [place] [facility] HEMATOLOGY Segs 69.8 45.0 - 02/19 Normal [place] 75.0 Medical Center HEMATOLOGY Eosinophils 0.4 0.0 - 0.5 02/19 [place] # /2010 [facility] Center HEMATOLOGY Basophils # 0.0 0.0 - 0.2 02/19 [place] [facility] Center CHEMISTRY Lactic Acid 1.1 0.5 - 2.2 02/19 Normal [facility] Lvl /2010 [facility] Microbiolog Culture: 02/19 [facility] y Resistant [facility]inetob[facility] Center r Screen Microbiolog Culture: 02/19 [facility] y MRSA /2010 [facility] Center Microbiolog Culture: 02/19 [facility] y Anaerobic [facility] Center Microbiolog Culture: 02/19 [facility] y Aspirate/Bod [facility] Center Fluid/Tissue CHEMISTRY POC A Glu 109.0 65 - 110 02/19 Normal [facility] CHEMISTRY POC A LA 0.6 0.5 - 2.2 02/19 Normal [facility] CHEMISTRY POC A Ca Ion 1.08 1.16 - 02/19 [facility] 1.30 [facility] CHEMISTRY POC A Na 140.0 135 - 145 02/19 Normal [facility] CHEMISTRY POC A Hct 29.0 36.0 - 02/19 LOW [place] 48.0 [facility] CHEMISTRY POC A K 3.3 3.5 - 5.1 02/19 LOW [facility] CHEMISTRY POC A O2 Sat 100.0 95.0 - 02/19 Normal [facility] 100.0 [facility] CHEMISTRY POC A HCO3 22.0 22 - 26 02/19 Normal [facility] CHEMISTRY POC A BE -4.0 -2-2 - 2 02/19 [facility] CHEMISTRY POC A Source ART 02/19 NA [facility] CHEMISTRY POC A pH 7.33 7.35 - 02/19 LOW [facility] 7. Medical Center CHEMISTRY POC A PCO2 41.0 35 - 45 02/19 Normal Medical Center CHEMISTRY POC A Temp 37.0 02/19 NA [facility] CHEMISTRY POC A PO2 433.0 80 - 100 02/19 [place] [facility] Center Microbiolog Culture: 02/19 [place] y Aspirate/Bod [facility] y Center Fluid/Tissue Microbiolog Culture: CSF 02[place]19 [place] w/Gram Stain /2010 [facility] BODY FLUIDS Protein CSF 39.0 15 - 45 02/19 Normal [facility] BODY FLUIDS Glucose CSF 70.0 45 - 80 02/19 Normal [facility] BODY FLUIDS WBC CSF 1.0 0 - 5 02/19 Normal [facility] BODY FLUIDS Color CSF Light Red >Colorless 02/19 [place] *ABN* Medical (02/19/2011 11:00:00) ?? Center BODY FLUIDS Clarity CSF Slight >Clear 02/19 ABN [place] *ABN* Medical (02/19/2011 11:00:00) ?? Center BODY FLUIDS Supernat CSF Colorless >Colorless 02/19 Normal [facility] (02/19/2011 11:00:00) ?? [facility] Center BODY FLUIDS RBC CSF 2885.0 0 - 0 02/19 [place] [facility] Center BODY FLUIDS Tube Num CSF xxxxxxx 02/19 [place] (02/19/2011 11:00:00) ?? [facility] CHEMISTRY POC A Glu 107.0 65 - 110 02/19 Normal [facility] Center CHEMISTRY POC A K 3.2 3.5 - 5.1 02/19 LOW [facility] CHEMISTRY POC A Ca Ion 1.1 1.16 - 02/19 LOW [facility] 1.30 [facility] Center CHEMISTRY POC A LA 0.7 0.5 - 2.2 02/19 Normal [facility] CHEMISTRY POC A Source ART 02/19 NA [facility] CHEMISTRY POC A pH 7.35 7.35 - 02/19 LOW [facility] 7.45 [facility] Center CHEMISTRY POC A Temp 37.0 02/19 NA [facility] Center CHEMISTRY POC A BE [...] 29.0 36.0 - 02/19 LOW [place] 48.0 [facility] Center BLOOD BANK ABO/Rh O NEG 02/19 Unknown [place] RESULTS [facility] Center BLOOD BANK Antibody Negative [...] Na 136.0 135 - 145 02/19 Normal [facility] CHEMISTRY POC A pH 7.43 7.35 - 02/19 Normal [place] 7.45 [facility] Center CHEMISTRY POC A PO2 381.0 80 - 100 02/19 [place] [facility] CHEMISTRY POC A BE -1.0 -2-2 - 2 02/19 Normal Medical Center CHEMISTRY POC A HCO3 23.0 22 - 26 02/19 Normal Medical Center CHEMISTRY POC A O2 Sat 100.0 95.0 - 02/19 Normal [place] 100.0 Medical Center CHEMISTRY POC A PCO2 34.0 35 - 45 02/19 LOW [facility] Center CHEMISTRY POC A Temp [...] on the clinical recommendatio ns of the [place] [employer]. HEMATOLOGY Lymphocytes 2.4 1.0 - 5.5 02/19 [place] [facility] [place] HEMATOLOGY Monocytes # 0.7 0.0 - 0.8 02/19 Normal Medical Center HEMATOLOGY Basophils # 0.0 0.0 - 0.2 02/19 Normal Medical Center HEMATOLOGY Eosinophils 0.6 0.0 - 0.5 02/19 [facility] [place] HEMATOLOGY Segs-Bands # 2.4 1.5 - 8.1 02/19 Normal Medical Center HEMATOLOGY Monocytes 10.9 2.0 - 12.0 02/19 Normal Medical Center HEMATOLOGY Basophils 0.8 0.0 - 1.0 02/19 Normal Medical Center HEMATOLOGY Eosinophils 9.4 0.0 - 4.0 02/19 [facility] Medical Center HEMATOLOGY Lymphocytes 39.3 20.0 [...] 12.0 - 02/19 LOW [place] 16.0 /2010 [facility] Center HEMATOLOGY RBC 3.26 4.20 - 02/19 LOW [place] 5.40 /2010 Medical Center HEMATOLOGY Hct 30.9 36.0 - 02/19 LOW [place] 48.0 /2010 [facility] Center HEMATOLOGY WBC 6.2 3.7 [...] - 02/19 Normal [facility] 14.7 [facility] Center HEMATOLOGY PTT 30.3 22.9 - 02/19 [place]sup[place] 35.8 /2010 Interpretive Medical Data: Heparin Center Therapeutic Range: 57 - 92 Seconds BEDSIDE Gluc POC 142.0 65 - 110 02/19 [place] <sup>1</sup>I [facility] GLUCOSE [facility] nterpretive Medical TESTING Data: Center Upper Reportable Limit: 200 mg/dL. BEDSIDE Comment1 Notify 02/19 NA [place] GLUCOSE RENAY/ /2010 Medical TESTING Center BEDSIDE Gluc POC 153.0 65 - 110 02/19 HI <sup>2</sup>I [facility] GLUCOSE [facility] nterpretive Medical TESTING Data: [place] Upper Reportable Limit: 200 mg/dL. BEDSIDE Comment1 [...] Center HEMATOLOGY MCH 32.8 27.0 - 02/18 [facility] [place] 31.0 Medical Center HEMATOLOGY MCHC [...] Center HEMATOLOGY MCH 32.7 27.0 - 02/15 [facility] [place] 31.0 /2010 Medical Center HEMATOLOGY MCV 95.1 81.0 - 02/15 Normal [place] 99.0 Medical Center HEMATOLOGY MCHC 34.3 32.0 - 02/15 Normal [place] 36.0 Medical Center HEMATOLOGY Platelet 117.0 133 - 450 02/15 LOW Medical Center HEMATOLOGY RDW 16.5 11.5 - 02/15 [facility] [place] 14.5 Medical Center HEMATOLOGY WBC [...] 0.5 02/15 [place] # /2010 [facility] HEMATOLOGY Monocytes # 0.6 0.0 - 0.8 02/15 [place] [facility] HEMATOLOGY Monocytes 4.8 2.0 - 12.0 02/15 Normal [facility] HEMATOLOGY Lymphocytes 26.8 20.0 - 02/15 Normal [place] 40.0 /2010 Medical Center HEMATOLOGY Lymphocytes 3.5 1.0 - 5.5 02/15 [place] # /2010 [facility] HEMATOLOGY Segs-Bands # 8.3 1.5 - 8.1 02/15 [place] [facility] HEMATOLOGY Basophils 0.8 0.0 - 1.0 02/15 Normal [facility] HEMATOLOGY Eosinophils 3.0 0.0 - 4.0 02/15 [place] [facility] HEMATOLOGY Segs 64.6 45.0 - 02/15 Normal [place] 75.0 [facility] CHEMISTRY Globulin 3.1 2.0 - 4.0 02/13 Normal [facility] CHEMISTRY Albumin Lvl 2.7 3.5 - 5.0 02/13 LOW [facility] CHEMISTRY Total 5.8 6.4 - 8.4 02/13 LOW [facility] CHEMISTRY B/C Ratio 43.0 6 - 25 02/13 [facility] CHEMISTRY A/G Ratio 0.9 0.7 - 1.6 02/13 Normal [facility] CHEMISTRY ALT 52.0 0 - 65 02/13 Normal [facility] CHEMISTRY Alk Phos 183.0 39 - 136 02/13 [facility] CHEMISTRY eGFR >60.0 02/13 NA <sup>6</sup>R esult Medical Comment: Center Expected eGFR for >20 yr. age group: >=60 ml/min/1.73 sq m The eGFR calculation is not valid in or for persons < 18 years of age. From [employer] (NKDEP) CHEMISTRY AGAP 16.9 10.0 - 02/13 Normal [place] 20.0 [facility] CHEMISTRY Calcium Lvl 8.5 8.5 - 10.5 02/13 Normal [facility] CHEMISTRY Bili Total 0.6 0.2 - 1.3 02/13 Normal [facility] Center CHEMISTRY AST 49.0 0 - 37 02/13 [facility] CHEMISTRY Chloride Lvl 97.0 95 - 109 02/13 Normal [facility] CHEMISTRY Potassium 4.9 3.5 - 5.1 02/13 Normal <sup>5</sup>R [facility] esult Medical Comment: Center Specimen Moderately Hemolyzed. CHEMISTRY Creatinine 0.4 0.5 - 1.4 02/13 LOW [facility] [place] [facility] CHEMISTRY Sodium Lvl 134.0 135 - 145 02/13 LOW [facility] Center CHEMISTRY Glucose Lvl 109.0 02/13 NA <sup>9</sup>I [facility] nterpretive Medical Data: Center Reference Ranges : 0 - 7 days : 41 - 90 mg/dL 7 days - 150 yrs : 70 - 99 mg/dL (fasting), based on the clinical recommendatio ns of the [place] [employer]. CHEMISTRY BUN 17.0 7 - 22 02/13 Normal [facility] CHEMISTRY CO2 25.0 24 - 32 02/13 Normal [facility] Center CHEMISTRY AGAP 18.6 10.0 - 02/12 Normal . [facility] Center CHEMISTRY Calcium Lvl 8.3 8.5 - 10.5 02/12 LOW [facility] Center CHEMISTRY Glucose Lvl 63.0 02/12 NA <sup>10</sup> [facility] Interpretive Medical Data: Center Reference Ranges : 0 - 7 days : 41 - 90 mg/dL 7 days - 150 yrs : 70 - 99 mg/dL (fasting), based on the clinical recommendatio ns of the [place] [employer]. CHEMISTRY BUN 19.0 7 - 22 02/12 Normal [facility] Center CHEMISTRY Creatinine 0.7 0.5 - 1.4 02/12 Normal [facility] Center CHEMISTRY Sodium Lvl 135.0 135 - 145 02/12 Normal [facility] Center CHEMISTRY Chloride Lvl 97.0 95 - 109 02/12 Normal [facility] Center CHEMISTRY Potassium 3.6 3.5 - 5.1 02/12 Normal [place] [facility] CHEMISTRY CO2 23.0 24 - 32 02/12 LOW [facility] Center HEMATOLOGY Monocytes # 1.0 0.0 - 0.8 02/12 [place] [facility] HEMATOLOGY Basophils # 0.1 0.0 - 0.2 02/12 [place] [facility] HEMATOLOGY Eosinophils 0.2 0.0 - 0.5 02/12 [place] # [facility] HEMATOLOGY Lymphocytes 4.9 1.0 - 5.5 02/12 [place] # [facility] HEMATOLOGY Basophils 0.7 0.0 - 1.0 02/12 Normal [facility] HEMATOLOGY Segs-Bands # 12.2 1.5 - 8.1 02/12 [facility] HEMATOLOGY Monocytes 5.5 2.0 - 12.0 02/12 Normal [facility] HEMATOLOGY Eosinophils 1.1 0.0 - 4.0 02/12 Normal [facility] HEMATOLOGY Segs 66.2 45.0 - 02/12 Normal [place] 75.0 Medical Center HEMATOLOGY Lymphocytes 26.5 20.0 - 02/12 Normal [place] 40.0 Medical Center CHEMISTRY Magnesium 1.8 1.8 - 2.4 02/11 Normal [facility] CHEMISTRY AST 57.0 0 - 37 02/11 [facility] CHEMISTRY Total 6.8 6.4 - 8.4 02/11 Normal Protein [facility] CHEMISTRY Albumin Lvl 3.2 3.5 - 5.0 02/11 LOW [facility] CHEMISTRY Globulin 3.6 2.0 - 4.0 02/11 Normal [facility] CHEMISTRY A/G Ratio 0.9 0.7 - 1.6 02/11 Normal [facility] CHEMISTRY ALT 59.0 0 - 65 02/11 Normal [facility] CHEMISTRY Alk Phos 258.0 39 - 136 02/11 [facility] CHEMISTRY Bili Total 0.7 0.2 - 1.3 02/11 Normal [facility] CHEMISTRY B/C Ratio 45.0 6 - 25 02/11 [facility] Medical Center HEMATOLOGY Anisocyte 1+ >None [...] Globulin 3.0 2.0 - 4.0 02/10 Normal [facility] Center CHEMISTRY A/G Ratio 1.0 0.7 - 1.6 02/10 Normal [facility] Center CHEMISTRY B/C Ratio 23.0 6 - 25 02/10 Normal [facility] Center CHEMISTRY AST 31.0 0 - 37 02/10 Normal [facility] Center CHEMISTRY Albumin Lvl 3.1 3.5 - 5.0 02/10 LOW [facility] CHEMISTRY ALT 64.0 0 - 65 02/10 Normal [facility] CHEMISTRY Total 6.1 6.4 - 8.4 02/10 LOW [facility] CHEMISTRY Bili Total 0.5 0.2 - 1.3 02/10 Normal [facility] Center CHEMISTRY Alk Phos 235.0 39 - 136 02/10 [facility] HEMATOLOGY Polychrom Slight >None Seen 02/08 Normal [facility] (02/08/2011 05:19:00) ?? [facility] Center HEMATOLOGY Hypochrom Slight >None Seen 02/08 [facility] (02/08/2011 05:19:00) ?? Medical Center HEMATOLOGY Anisocyte 1+ >None Seen 02/08 [facility] *ABN* Medical (02/08/2011 05:19:00) ?? Center HEMATOLOGY [...] URINALYSIS UA ?? 0.1 - 1.0 02/[address] [facility] Urobilinogen Medical Center URINALYSIS UA Sq Epi None Seen 02/02 [facility] Medical Center URINALYSIS UA Leuk Est Negative >Negative 02/02 Normal [place] (02/02/2011 17:21:00) ?? Medical Center URINALYSIS UA RBC <1.0 0 - 2 02/02 Normal Medical Center URINALYSIS UA Bacteria Occasional /HPF >None Seen 02/[address] [facility] * Medical (02/02/2011 17:21:00) ?? Center URINALYSIS UA Nitrite Negative >Negative 02/02 [place] (02/02/[place] 17:21:00) ?? Medical Center URINALYSIS UA Ketones Negative mg/dL >Negative 02/02 [facility] * Medical (02/02/2011 17:21:00) ?? Center URINALYSIS UA Bili Negative >Negative 02/02 [facility]* Medical (02/02/2011 17:21:00) ?? Center URINALYSIS UA Blood Negative >Negative 02/02 Normal [facility] (02/02/2011 17:21:00) ?? Medical Center URINALYSIS UA Protein Negative mg/dL >Negative 02/02 Normal [facility] (02/02/2011 17:21:00) ?? /2010 [facility] Center URINALYSIS UA Glucose Negative mg/dL >Negative 02/02 NA [facility] *NA* Medical (02/02/2011 17:21:00) ?? Center URINALYSIS UA Color Light Yellow >Yellow 02/02 NA [facility] *NA* Medical (02/02/2011 17:21:00) ?? Center URINALYSIS UA Turbidity Clear >Clear 02/02 Normal [facility] (02/02/2011 17:21:00) ?? [facility] Center URINALYSIS UA Spec Grav 1.004 <<=1.030 02/02 Normal [facility] URINALYSIS UA pH 7.0 5.0 - 8.0 02/02 Normal [facility] CHEMISTRY T4 Free 0.98 0.76 - 02/01 Normal [facility] 1.46 [facility] CHEMISTRY TSH 0.711 0.360 - 02/01 Normal [facility] 3.740 [facility] IMMUNOLOGY Prealbumin 19.4 18.0 - 02/01 Normal [facility] 45.0 Medical Center BEDSIDE Comment1 Notify 01/[address] [facility] GLUCOSE RN/MD Medical TESTING Center BEDSIDE Gluc POC 109.0 65 - 110 01/31 Normal <sup>2</sup>I [facility] GLUCOSE [facility] nterpretive Medical TESTING Data: Center Upper Reportable Limit: 200 mg/dL. CHEMISTRY Phosphorus 2.9 2.5 - 4.5 01/31 Normal [facility] CHEMISTRY CO2 24.0 24 - 32 01/31 Normal [facility] CHEMISTRY Calcium Lvl 7.7 8.5 - 10.5 01/31 LOW [facility] CHEMISTRY Glucose Lvl 100.0 01/31 NA <sup>5</sup>I [place] nterpretive Medical Data: Center Reference Ranges : 0 - 7 days : 41 - 90 mg/dL 7 days - 150 yrs : 70 - 99 mg/dL (fasting), based on the clinical recommendatio ns of the [place] [employer]. CHEMISTRY Sodium Lvl 138.0 135 - 145 01/31 Normal [facility] CHEMISTRY Potassium 3.9 3.5 - 5.1 [...] Monocytes # 1.4 0.0 - 0.8 01/31 [facility] [place] [facility] [place] HEMATOLOGY Myelocytes 3.0 <<=0.0 01/31 [facility] HEMATOLOGY Segs-Bands # 18.6 1.5 - 8.1 01/31 [facility] [place] [facility] HEMATOLOGY Lymphocytes 1.6 1.0 - 5.5 01/31 [place] # /2010 [facility] HEMATOLOGY Metamyelocyt 2.0 0.0 - 1.0 01/31 [facility] [place] [facility] HEMATOLOGY Lymphocytes 7.0 20.0 - 01/31 LOW [place] 40.0 Medical Center HEMATOLOGY Monocytes 6.0 2.0 - 12.0 01/31 Normal Medical Center HEMATOLOGY Segs 79.0 45.0 - 01/31 [facility] [place] 75.0 Medical Center HEMATOLOGY Bands 2.0 0.0 - 11.0 01/31 Normal Medical Center HEMATOLOGY Hypochrom Slight >None Seen 01/31 [facility] (01/31/2011 03:36:00) ?? /2010 Medical Center [...] WBC 23.0 3.7 - 10.4 01/31 HI [facility] Center HEMATOLOGY RBC 3.93 4.20 - 01/31 LOW [facility] 5.40 /2010 [facility] Center HEMATOLOGY Hgb 12.2 12.0 - 01/31 Normal [facility] 16.0 Medical Center BEDSIDE Gluc POC 188.0 65 - 110 01/31 [place] <sup>3</sup>I [facility] GLUCOSE [place] nterpretive Medical TESTING Data: [place] Upper Reportable Limit: 200 mg/dL. BEDSIDE Comment1 Notify 01/31 NA [facility] GLUCOSE RENAY/ Medical TESTING Center BEDSIDE Gluc POC 233.0 65 - 110 01/31 [place] <sup>4</sup>I [facility] GLUCOSE [facility] nterpretive Medical TESTING Data: [place] Upper Reportable Limit: 200 mg/dL. BEDSIDE Comment1 [...] on the clinical recommendatio ns of the [place] [employer]. CHEMISTRY Potassium 4.0 3.5 - [...] Center HEMATOLOGY Segs 81.0 45.0 - 01/29 [facility] [place] 75.0 /2010 Medical Center HEMATOLOGY Lymphocytes 9.0 20.0 - 01/29 LOW [place] 40.0 /2010 Medical Center HEMATOLOGY Monocytes 5.0 2.0 - 12.0 01/29 Normal Medical Center HEMATOLOGY Myelocytes 1.0 <<=0.0 01/29 [facility] HEMATOLOGY Metamyelocyt 2.0 0.0 - 1.0 01/29 [facility] [place] [facility] HEMATOLOGY Bands 2.0 0.0 - 11.0 01/29 Normal Medical Center HEMATOLOGY Monocytes # 1.0 0.0 - 0.8 01/29 [facility] [place] [facility] HEMATOLOGY Lymphocytes 1.8 1.0 - 5.5 01/29 [place] # /2010 [facility] HEMATOLOGY Segs-Bands # 16.3 1.5 - 8.1 01/29 [facility] [place] /2010 Medical Center HEMATOLOGY MPV 9.4 7.4 - 10.4 01/29 Normal Medical Center HEMATOLOGY Hct 33.9 36.0 - 01/29 LOW [place] 48.0 Medical Center HEMATOLOGY MCV 94.0 81.0 - 01/29 Normal [place] 99.0 /2010 Medical Center HEMATOLOGY MCH 31.5 27.0 - 01/29 [facility] [place] 31.0 Medical Center HEMATOLOGY MCHC 33.6 32.0 - 01/29 [facility] [place] 36.0 /2010 Medical Center HEMATOLOGY RDW 16.1 11.5 - 01/29 [facility] [place] 14.5 Medical Center HEMATOLOGY Platelet 178.0 133 - 450 01/29 Normal Medical Center HEMATOLOGY WBC 19.6 3.7 - 10.4 01/29 [facility] Medical Center HEMATOLOGY Hgb 11.4 12.0 - 01/29 LOW [place] 16.0 Medical Center HEMATOLOGY RBC 3.61 4.20 - 01/29 LOW [place] 5.40 /2010 [facility] Center CHEMISTRY AGAP 14.2 10.0 - 01/28 Normal [place] 20.0 Medical Center CHEMISTRY Chloride Lvl 116.0 95 - 109 01/28 [facility] Medical Center CHEMISTRY Sodium Lvl 152.0 135 - 145 01/28 [facility] Medical Center CHEMISTRY Potassium 3.2 3.5 [...] on the clinical recommendatio ns of the [place] [employer]. CHEMISTRY BUN 21.0 7 - [...] CHEMISTRY Ca Ion 1.06 1.16 - 01/28 [facility] [place] 1. Medical Center CHEMISTRY Ca Norm mgdL 4.36 4.65 - 01/28 [facility] [place] 5. Medical Center CHEMISTRY Ca Ion mgdL 4.24 4.65 - 01/28 [facility] [place] 5. Medical Center HEMATOLOGY Platelet 144.0 133 - 450 01/28 Normal Medical Center HEMATOLOGY MPV 10.4 7.4 - 10.4 01/28 Normal Medical Center HEMATOLOGY MCH 31.1 27.0 - 01/28 [facility] [place] 31.0 Medical Center HEMATOLOGY MCHC 33.3 32.0 - 01/28 [facility] [place] 36.0 Medical Center HEMATOLOGY RDW 16.0 11.5 - 01/28 [facility] [place] 14.5 Medical Center HEMATOLOGY Hct 32.3 36.0 - 01/28 [facility] [place] 48.0 Medical Center HEMATOLOGY MCV 93.5 81.0 - 01/28 Normal [place] 99.0 Medical Center HEMATOLOGY RBC 3.45 4.20 - 01/28 [facility] [place] 5.40 Medical Center HEMATOLOGY Hgb [...] CHEMISTRY Osmolality 317.0 280 - 300 01/27 [facility] CHEMISTRY POC A pH 7.56 7.35 - 01/27 HI [place] 7.45 Medical Center CHEMISTRY POC A PO2 150.0 80 - 100 01/27 [facility] Center CHEMISTRY POC A Source ART 01/27 NA [facility] CHEMISTRY POC A Temp 37.0 01/27 NA [facility] CHEMISTRY POC A BE 4.0 -2-2 - 2 01/27 [facility] Center CHEMISTRY POC A O2 Sat 100.0 95.0 - 01/27 Normal [place] 100.0 [facility] Center CHEMISTRY POC A HCO3 25.0 22 - 26 01/27 Normal [facility] CHEMISTRY POC A PCO2 28.0 35 - 45 01/27 CRIT [facility] CHEMISTRY Osmolality 305.0 280 - 300 01/27 [facility] Medical Center HEMATOLOGY PTT 25.2 22.9 - 08/29 Normal <sup>12</sup> [facility] s Interpretive Medical Data: Heparin Center Therapeutic Range: 57 - 92 Seconds HEMATOLOGY PT 15.8 12.0 - 01/27 [facility] HEMATOLOGY INR 1.26 0.85 - 01/27 [place] <sup>9</sup>I [facility] 06.17 nterpretive Medical Data: Center RECOMMENDED RANGES FOR PROTIME INR: 2.0-3.0 for most medical and surgical thromboemboli c states. 2.5-3.5 for artificial heart valves and recurrent embolism. INR SHOULD BE USED ONLY FOR PATIENTS ON STABLE ANTICOAGULANT THERAPY. HEMATOLOGY Eosinophils 0.0 0.0 - 4.0 01/27 Normal [facility] HEMATOLOGY Basophils 0.2 0.0 - 1.0 01/27 Normal [facility] HEMATOLOGY Eosinophils 0.0 0.0 - 0.5 01/27 Normal [facility] HEMATOLOGY Basophils # 0.0 0.0 - 0.2 01/27 Normal [facility] CHEMISTRY Osmolality 306.0 280 - 300 01/26 [facility] HEMATOLOGY Basophils # 0.0 0.0 - 0.2 01/26 Normal [facility] HEMATOLOGY Eosinophils 0.0 0.0 - 4.0 01/26 Normal [facility] HEMATOLOGY Eosinophils 0.0 0.0 - 0.5 01/26 Normal [facility] HEMATOLOGY Basophils 0.1 0.0 - 1.0 01/26 Normal [facility] HEMATOLOGY PTT 29.8 22.9 - 01/26 Normal <sup>13</sup> [facility] Interpretive Medical Data: Heparin Center Therapeutic Range: 57 - 92 Seconds HEMATOLOGY PT 15.4 12.0 - 01/26 [facility] HEMATOLOGY INR 1.22 0.85 - 01/26 [place] <sup>10</sup> [facility] 06.17 Interpretive Medical Data: Center RECOMMENDED RANGES FOR PROTIME INR: 2.0-3.0 for most medical and surgical thromboemboli c states. 2.5-3.5 for artificial heart valves and recurrent embolism. INR SHOULD BE USED ONLY FOR PATIENTS ON STABLE ANTICOAGULANT THERAPY. CHEMISTRY POC A Glu 108.0 65 - 110 01/26 Normal [facility] CHEMISTRY POC A LA 0.8 0.5 - 2.2 01/26 Normal [facility] CHEMISTRY POC A Ca Ion 1.17 1.16 - 01/26 Normal [place] 1.30 [facility] CHEMISTRY POC A K 3.6 3.5 - 5.1 01/26 Normal [facility] CHEMISTRY POC A Na 140.0 135 - 145 01/26 Normal [facility] CHEMISTRY POC A PO2 80.0 80 - 100 01/26 Normal [facility] CHEMISTRY POC A PCO2 40.0 35 - 45 01/26 Normal [facility] CHEMISTRY POC A Source ART 01/26 NA [facility] CHEMISTRY POC A Temp 37.0 01/26 NA [facility] CHEMISTRY POC A pH 7.4 7. - 01/26 Normal [place] 7. [facility] CHEMISTRY POC A Hct 34.0 36.0 - 01/26 LOW [place] 48.0 [facility] CHEMISTRY POC A BE 0.0 -2-2 - 2 01/26 Normal [facility] CHEMISTRY POC A O2 Sat 96.0 95.0 - 01/26 Normal [place] 100.0 [facility] CHEMISTRY POC A HCO3 25.0 22 - 26 01/26 Normal [facility] CHEMISTRY POC A O2 Sat 96.0 95.0 - 01/26 Normal [place] 100.0 [facility] CHEMISTRY POC A K 3.6 3.5 - 5.1 01/26 Normal [facility] CHEMISTRY POC A LA 0.8 0.5 - 2.2 01/26 Normal [facility] CHEMISTRY POC A Glu 113.0 65 - 110 01/26 HI [facility] CHEMISTRY POC A Source ART 01/26 NA [facility] CHEMISTRY POC A Temp 37.0 01/26 NA [facility] CHEMISTRY POC A HCO3 25.0 22 - 26 01/26 Normal [facility] CHEMISTRY POC A PO2 79.0 80 - 100 01/26 LOW [facility] CHEMISTRY POC A PCO2 38.0 35 - 45 01/26 Normal [facility] CHEMISTRY POC A pH 7.42 7.35 - 01/26 Normal [facility] 7.45 [facility] CHEMISTRY POC A BE 0.0 -2-2 - 2 01/26 Normal [facility] CHEMISTRY POC A Ca Ion 1.22 1.16 - 01/26 Normal [place] 1.30 [facility] CHEMISTRY POC A Na 138.0 135 - 145 01/26 Normal [facility] CHEMISTRY POC A Hct 36.0 36.0 - 01/26 Normal [facility] 48.0 [facility] CHEMISTRY POC A Hct 41.0 36.0 - 01/26 Normal [facility] 48.0 [facility] CHEMISTRY POC A Na 140.0 135 - 145 01/26 Normal [facility] CHEMISTRY POC A Ca Ion 1.05 1.16 - 01/26 LOW [facility] 1.30 [facility] CHEMISTRY POC A K 3.6 3.5 - 5.1 01/26 Normal [facility] CHEMISTRY POC A LA 0.8 0.5 - 2.2 01/26 Normal [facility] CHEMISTRY POC A Glu 107.0 65 - 110 01/26 Normal [facility] BLOOD BANK Antibody Negative 01/26 Normal [facility] RESULTS Scrn (01/26/2011 09:00:00) ?? [facility] BLOOD BANK ABO/Rh O NEG 01/26 Unknown [facility] HEMATOLOGY PTT 28.2 22.9 - 01/26 [...] THERAPY. HEMATOLOGY PT 15.6 12.0 - 01/26 [facility] [place] 14.7 [facility] CHEMISTRY CK MB Index 0.4 0.0 - 2.5 01/25 Normal [facility] CHEMISTRY CK MB 1.1 0.5 - 3.6 01/25 Normal [facility] CHEMISTRY Myoglobin 141.0 25 - 72 [...] Total CK 34.0 - 191 01/24 Normal [facility] Center BLOOD BANK Antibody Negative 01/24 Normal [facility] RESULTS Scrn (01/24/2011 03:15:00) ?? [facility] Center BLOOD BANK ABO/Rh O NEG 01/24 Unknown [place] RESULTS /2010 Medical Center BLOOD BANK Platelet Product available 01/24 Normal [place] RESULTS product (01/24/2011 03:15:00) ?? [facility] Center BLOOD BANK RBC product [...] UA ?? 0.1 - 1.0 01/[address] [facility] Urobilinogen [facility] Center URINALYSIS UA Sq Epi Occasional /LPF >Few [facility] 05:29[facility] ?? Center URINALYSIS UA WBC <1.0 0 - 5 01/23 Normal Medical Center URINALYSIS UA Mucus Few /LPF >None [facility] (01/23/2011 05:29:00) ?? Center URINALYSIS UA RBC <1.0 0 - 2 01/23 Normal [facility] Center URINALYSIS UA Protein Negative mg/dL >Negative 01/23 Normal [facility] (01/23/2011 05:29:00) ?? Medical Center URINALYSIS UA Nitrite Negative >Negative 01/23 [place] (01/23/2011 05:29:00) ?? Medical Center URINALYSIS UA Leuk Est Negative >Negative 01/23 Normal [place] (01/23/2011 05:29:00) ?? Medical Center URINALYSIS UA Bili Negative >Negative [facility]2011 05:29:00[facility] ?? Center URINALYSIS UA Glucose 150 mg/dL >Negative 01/23 ABN [place] *ABN Medical (01/23/2011 05:29:00) ?? Center URINALYSIS UA Blood Negative >Negative 01/23 Normal [facility] (01/23/2011 05:29:00) ?? [facility] Center URINALYSIS UA pH 5.0 5.0 - 8.0 01/23 Normal [facility] Center URINALYSIS UA Spec Grav 1.01 <<=1.030 01[place]23 [place] [facility] URINALYSIS UA Turbidity Clear >Clear 01/23 Normal [facility] (01/23/2011 05:29:00) ?? [facility] Center URINALYSIS UA Color Yellow [...] Microbiolog Culture: 01/23 [facility] y [facility] Acinetobacte Center r Screen Pathology [...] chin tuck and no aspiration was seen. [place] barium: Normal swallowing with spoon and cup [...] DX EXAM: [facility]: [facility] [address] INDICATION: [...] DX EXAM: XR CHEST 2 VIEWS 02/15/2020 [facility] DATE: 02/15/2020 19:44 CDT Center INDICATION: Respiratory distress - Possible MG e xacerbation COMPARISON: 12/14/2019 TECHNIQUE: PA and lateral chest radiographs IMPRESSION: 1. Left PRODUCT DEVELOPMENT TECHNICIAN shunt and left Port-A-Cath are again seen. [...] EXAM: FLUOROSCOPY MODIFIED BARIUM SWALLOW 0 12/16/2019 [facility] function video DX DATE: 12/16/2019 0953 hours [...] Thin barium: Deep penetration without aspiration . [place] barium: Occasional flash penetration with out aspiration.. [...] fundus. Other tubes, lines and hardw are: PRODUCT DEVELOPMENT TECHNICIAN shunt catheter tip overlies the left lower [...] AN ADDITIONAL PRELIMINARY OR FINALIZED VERSION. 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 ADDITIONAL INFORMATION: None. COMPARISON: None. TECHNIQUE: Oral barium contr ast of differing consistencies was given to the patient to assess swallowing mechanism. The study was performed in conjunction with speech pathology. FLUOROSCOPY TIME: 55 FLUOROSCOPY DOSE: 7.99 mGy DISCUSSION: The patient was given barium contrast of differe nt consistencies. Thin barium: Deep penetration. Burley barium: Deep penetration. Pudding barium: Normal. IMPRESSION: 1. Deep penetration with li quid consistency. No aspiration or penetration with pudding consistency. 2. Please also see detailed chart note by cristhian alston pathology. Chest 1view DX EXAM: XR CHEST 1 VIEW 12/12/2019 [facility] DATE: 12/12/2019 7:44 CDT Center INDICATION: - [...] DX EXAM: XR ABDOMEN 1 VIEW 12/11/2019 [facility] DATE: 12/11/2019 4:39 PM CDT [facility] INDICATION: - Confirm NG tube placement ADDITIONAL INFORMATION: None. COMPARISON: KUB 12/09/2019 TECHNIQUE: Single frontal image of the abdomen. FINDINGS: Lines and tubes: NG tube tip projects over the left upper quadrant and likely region of the gastric fundus with sidehole near the GE junction. PRODUCT DEVELOPMENT TECHNICIAN shunt catheter with tip overlying the right [...] DX EXAM: XR ABDOMEN 1 VIEW 12/09/2019 [facility] DATE: 12/09/2019 12:36 CDT Center INDICATION: - [...] and hardw are: Again seen is a PRODUCT DEVELOPMENT TECHNICIAN shunt tubing coursing over the left hemithorax. [...] DX EXAM: XR ABDOMEN 1 VIEW 12/08/2019 [facility] DATE: 12/08/2019 5[facility]: - Assess feeding tube placement ADDITIONAL INFORMATION: None. COMPARISON: KUB 12/15/2019 TECHNIQUE: Single frontal image of the abdomen. FINDINGS: Lines and tubes: NG tube tip projects over th e gastric fundus with sidehole near the GE junction. 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 ADDITIONAL INFORMATION: 74-y ear-old female [...] differe nt consistencies. Thin barium: Deep penetration. Burley barium: Deep penetration. Pudding barium: Deep penetration. IMPRESSION: 1. Deep penetration with thin, nectar, and pudd ing barium. 2. Please also see detailed chart note by cristhian alston pathology. Chest 1view DX EXAM: 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 ADDITIONAL INFORMATION: None. COMPARISON: None. TECHNIQUE: Oral barium contr ast of differing consistencies was given to the patient to assess swallowing mechanism. The study was performed in conjunction with speech pathology. FLUOROSCOPY TIME: 44 seconds FLUOROSCOPY DOSE: 6.75 mGy DISCUSSION: The patient was given barium contrast of differe nt consistencies. Thin barium: Normal. Burley barium: Normal. Pudding barium: Normal. Solid with barium: Normal. IMPRESSION: 1. Normal swallowing withou t aspiration or penetration of thin, nectar, pudding, and solid with barium. 2. Please also see detailed chart note by cristhian alston pathology. Ext Lower Venous EXAM: US BILATERAL LOWER EXTREMITY VENOUS DOPPL ER 11/28/2019 [facility] Doppler Bilat US DATE: 11/28/2019 at 1108 [...] for EXAM: XR ABDOMEN 1 VIEW 11/26/2019 [facility] DX DATE: 11/26/2019 at 0119 hours Ce nter INDICATION: -Dobbhoff tube placement ADDITIONAL INFORMATION: None. COMPARISON: None. TECHNIQUE: Limited AP view of the abdomen for tube placement assessment. Number of images: 1. FINDINGS: Feeding tube: A feeding tube tip overlies the se cond portion of the duodenum. Enteric suction tube: None. Other tubes, lines and hardware: * PRODUCT DEVELOPMENT TECHNICIAN shunt. * Partially visualized port catheter. * EKG leads overlie the patient. * Cholecystectomy clips in the right upper quad rant. Other: No other changes. IMPRESSION: 1. Feeding tube tip overlies the second portion of the duodenum. Chest 1view DX EXAM: XR CHEST 1 VIEW 11/24/[address] [facility] [place] [place] edical DATE: 11/24/2019 3:00 CDT Center INDICATION: [...] DX EXAM: XR CHEST 1 VIEW 11/22/[address] [facility] [place] [place] edical DATE: 11/22/2019 20:26 CDT Center INDICATION: [...] EXAM: MRI CERVICAL SPINE WITHOUT CONTRAST 2019 [facility] contrast MRI EXAM: MR thoracic spine without contrast Center EXAM: MRI lumbar spine without contrast DATE: 11/22/2019 10:36 AM CDT INDICATION: 74 years old Female patient with his tory of - fractures on ct. COMPARISON: Fall TECHNIQUE: Multiplanar, mult isequence noncontrast MR imaging of the cervical, thoracic and lumbar spine spine. FINDINGS: Limited motion degraded exam and Limited exam due to his poor aohtlk-oi-pxsos ratio. MR cervical spine: Only axial gradient echo seq uences of the cervical spine are acquired with lots of motion artifacts and poor grwjdd-ww-eiduu ratio. Evaluation of the cord signal intensity [...] xam and Limited exam due to poor tvqzdf-wy-vuxhr ratio, as detailed above. 2. Evaluation of the cord si gnal intensity is markedly limited due to motion artifacts and poor syawbi-vj-codwe ratio. There is suggestion of STIR hyperintensity [...] EXAM: MRI CERVICAL SPINE WITHOUT CONTRAST 10/31 [facility] contrast MRI EXAM: MR thoracic spine without contrast Center EXAM: MRI lumbar spine without contrast DATE: 11/22/2019 10:36 AM CDT INDICATION: 74 years old Female patient with his tory of - fractures on ct. COMPARISON: Fall TECHNIQUE: Multiplanar, mult isequence noncontrast MR imaging of the cervical, thoracic and lumbar spine spine. FINDINGS: Limited motion degraded exam and Limited exam due to his poor ijyhok-di-witvy ratio. MR cervical spine: Only axial gradient echo seq uences of the cervical spine are acquired with lots of motion artifacts and poor sfqvgb-oc-rlomi ratio. Evaluation of the cord signal intensity [...] xam and Limited exam due to poor ppuqkh-rw-wvujw ratio, as detailed above. 2. Evaluation of the cord si gnal intensity is markedly limited due to motion artifacts and poor svjwjq-vi-ocyon ratio. There is suggestion of STIR hyperintensity [...] EXAM: MRI CERVICAL SPINE WITHOUT CONTRAST 10/31 [facility] contrast MRI EXAM: MR thoracic spine without contrast Center EXAM: MRI lumbar spine without contrast DATE: 11/22/2019 10:36 AM CDT INDICATION: 74 years old Female patient with his tory of - fractures on ct. COMPARISON: Fall TECHNIQUE: Multiplanar, mult isequence noncontrast MR imaging of the cervical, thoracic and lumbar spine spine. FINDINGS: Limited motion degraded exam and Limited exam due to his poor xdxido-bz-kqhzw ratio. MR cervical spine: Only axial gradient echo seq uences of the cervical spine are acquired with lots of motion artifacts and poor wmykrf-ci-igpru ratio. Evaluation of the cord signal intensity [...] xam and Limited exam due to poor oaiern-ox-itddk ratio, as detailed above. 2. Evaluation of the cord si gnal intensity is markedly limited due to motion artifacts and poor mkybym-tg-wjskl ratio. There is suggestion of STIR hyperintensity [...] Esophagram w Water EXAM: FLUOROSCOPY ESOPHAGRAM 11/22/2019 [facility] Contrast DX DATE: 11/22/2019 9:56 CDT [...] Trauma EXAM: CT CHEST WITH CONTRAST 11/22/2019 [facility] Chest/Abd/Pelvis w IV EXAM: CT ABDOMEN AND [...] tip terminates at the left subclavian vein. PRODUCT DEVELOPMENT TECHNICIAN shunt tubing terminates in the upper peritoneal [...] EXAM: CT ANGIOGRAM OF THE NECK 11/22/2019 [facility] DATE: 11/22/2019 8:10 CDT Center INDICATION: - [...] RIGHT HAND 3 VIEWS 11/22/2019 [facility] EXAM: XR RIGHT WRIST 4 VIEWS [...] EXAM: CT FACIAL BONES WITHOUT CONTRAST 0 [facility] contrast CT DATE: 11/22/2019 8:24 CDT Center [...] encephalomalacia are again noted. A left transfrontal PRODUCT DEVELOPMENT TECHNICIAN shunt is noted. Soft tissues: No abnormality [...] Consult EXAM: CT CHEST WITHOUT CONTRAST 11/22/2019 [facility] CT DATE: 11/22/2019 at 0053 hours C [...] CT CERVICAL SPINE WITHOUT CONTRAST 0 11/22/2019 [facility] CT DATE: 11/21/2019 at 2239 hours C enter INDICATION: - TRAUMA, second interpretation req uested COMPARISON: Cervical spine CT 02/17/2019 TECHNIQUE: Noncontrast CT im ages of the cervical spine, obtained at [facility]. Axial, sagittal and coronal images provided. UT [...] BRAIN WITHOUT CONTRAST 11/22/2019 [facility] CT DATE: 11/22/2019 6:07 CDT Center INDICATION: Trauma, fall; tr ansferred for higher level of care, request for second interpretation of outside imaging. COMPARISON: CT brain from 03/02/2019 and MRI brai n from 02/22/2019 TECHNIQUE: Noncontrast axial imaging of the brain was acquired from the vertex to the skull base. Coronal and sagittal reformatted images were generated. 381 images. Imaging was performed at [facility] on 11/21/2019 at 10:47 PM . FINDINGS: [...] Consult EXAM: CT FACIAL BONES WITHOUT CONTRAST [facility] CT DATE: 11/21/2019 at 2239 hours C [...] CT EXAM: CT HEAD WITHOUT CONTRAST 03/02/2019 [facility] DATE: 03/02/2019 14:52 CDT Center INDICATION: 74 [...] are unchanged in size. Persistent 0.4 cm cnet-dz-prjyc midline shift. IMPRESSION: 1. No CT evidence of acute intracranial abnormality. Redemonstration of areas of encephalomalacia in the right frontal and temporal lobes. Persistent 0.4 cm smic-ig-sxgoi midline shift. The ventricles are unchanged in size. Chest 1view DX EXAM: XR CHEST 1 VIEW 02/27/[address] [facility] [place] [place] edical DATE: 02/27/2019 13:37 CDT Center INDICATION: [...] DX EXAM: XR CHEST 1 VIEW 02/26/[address] [facility] [place] [place] edical DATE: 02/26/2019 13:33 CDT Center INDICATION: [...] EXAM: MRI BRAIN WITH AND WITHOUT CONTRAST [facility] MRI DATE: 02/22/2019 1740 hours Cente r [...] used for the remainder of the procedure. Video Coordinator radiographic imaging d emonstrates a microwire with [...] A sterile dressing was applied. Catheter placed: [facility] Catheter size ([place]ayan): 5 Catheter intravascular length [...] used for the remainder of the procedure. Video Coordinator radiographic imaging d emonstrates a microwire with [...] SPINE WITHOUT AND WITH CONTRA ST 02/20/2019 [facility] contrast MRI DATE: 02/22/2019 7:25 PM CDT [...] RIGHT FOOT WITH AND WITHOUT CONTRAST 02/20/2019 [facility] MRI DATE: 02/20/2019 20:28 CDT Center INDICATION: [...] SPINE WITHOUT AND WIT H CONTRAST 02/20/2019 [facility] DATE: 02/22/2019 6:43 PM CDT Cent [...] ABDOMEN AND PELVIS WITH CONTRAST 0 02/19/2019 [facility] contrast only CT DATE: 02/19/2019 8:17 CDT [...] EXAM: CT RIGHT FOOT WITH CONTRAST 02/19/2019 [facility] DATE: 02/19/2019 at 0844 hours Ce nter [...] EXAM: CT LUMBAR SPINE WITH CONTRAST 02/17/2019 [facility] contrast CT DATE: 02/17/2019 Center INDICATION: 'h/o [...] CT CERVICAL SPINE WITH CONTRAST 9 [facility] contrast CT DATE: 02/17/2019 Center [...] complex indenting the ventral thecal sac causing xwvo-bb-twlbfbvn spinal canal stenosis. Bilateral severe neural foraminal [...] EXAM: MR RIGHT FOOT WITHOUT CONTRAST 2018 [facility] DATE: 02/12/2019 2:09 PM CDT [facility] er INDICATION: - r/o OM COMPARISON: [...] DX EXAM: XR CHEST 1 VIEW 02/09/[address] [facility] [place] [place] edical DATE: 02/09/2019 7:48 CDT Center INDICATION: Respiratory distress - sepsis COMPARISON: 02/07/2019 TECHNIQUE: AP chest radiograph IMPRESSION: 1. Cardiomediastinal silhou ette is enlarged, unchanged. Aortic atherosclerotic disease. 2. Prominent lung reticulat ions again seen with peribronchial cuffing suggestive of pulmonary edema. Superimposed infection cannot be excluded. 3. Costophrenic sulci are sharp. 4. Osseous structures are stable. 5. Left-sided PRODUCT DEVELOPMENT TECHNICIAN shunt is stable compared to pr evious study. Foot wo contrast CT EXAM: CT RIGHT FOOT WITHOUT CONTRAST 019 [facility] DATE: 02/08/2019 7:05 CDT Center INDICATION: - [...] DX EXAM: XR CHEST 1 VIEW 02/07/[address] [facility] [place] [place] edical DATE: 02/07/2019 7:28 PM CDT Cente r INDICATION: - shortness of breath COMPARISON: 02/06/2019 TECHNIQUE: AP chest. IMPRESSION: Left-sided PRODUCT DEVELOPMENT TECHNICIAN shunt in stabl e position. Stable cardiac mediastinal silhouette and atherosclerotic changes in the aorta. Small bilateral pleural effusions. No pneumothorax. Mild bibasilar subsegmental atelectasis. CONCLUSION: 1. Small bilateral pleural effusions. 2. Mild bibasilar subsegmental atelectasis. Upp er lungs are clear. Chest 1view DX EXAM: XR CHEST 1 VIEW 02/06/[address] [facility] [place] [place] edical DATE: 02/06/2019 15:06 T [place] INDICATION: - infectious workup for AMS COMPARISON: [...] EXAM: XR RIGHT WRIST 3 VIEWS 02/05/2019 [facility] DATE: 02/05/2019 17:36 [facility] INDICATION: - fall, severe pain COMPARISON: None TECHNIQUE: PA, lateral and oblique radiographs of the wrist FINDINGS: No acute fracture or malalignment is identified. No soft tissue abnormality is identified. IMPRESSION: No acute abnormality. Ankle 3 views DX EXAM: XR RIGHT ANKLE 3 VIEWS 02/05/2019 [facility] DATE: 02/05/2019 17:36 T Center INDICATION: - [...] DX EXAM: XR CHEST 2 VIEWS 02/05/2019 [facility] DATE: 02/05/2019 2:09 PM CDT Cente r [...] 4. Osseous structures are stable. 5. Left-sided PRODUCT DEVELOPMENT TECHNICIAN shunt is stable compared to pr evious study. Chest 1view DX EXAM: XR CHEST 1 VIEW 12/27/[address] [facility] [place] [place] edical DATE: 12/27/2018 3:00 T Center INDICATION: [...] DX EXAM: XR CHEST 1 VIEW 12/26/[address] [facility] [place] [place] edical DATE: 12/26/2018 6:29 CDT Center INDICATION: [...] for EXAM: XR CHEST 1 VIEW 12/25/[address] [facility] [place] [place] edical Placement DX DATE: 12/25/2018 3:42 T [...] catheter. Liver US EXAM: US LIVER 12/24/2018 [facility] DATE: 12/24/2018 20:47 T Center INDICATION: -Elevated [...] DX EXAM: XR CHEST 1 VIEW 12/24/[address] [facility] [place] [place] edical DATE: 12/24/2018 20:04 T Center INDICATION: [...] for EXAM: XR ABDOMEN 1 VIEW 12/24/2018 [facility] Placement DX DATE: 12/24/2018 20:04 T Center [...] focal consolidation is identified. There is left-sided PRODUCT DEVELOPMENT TECHNICIAN shunt tubing. There are calcified granulomata in the upper lobes. The cardiac silhouette is up per limits of normal in size. Degenerative change involves the thoracic spine and shoulders. An old distal right clavicle fracture is suspected. IMPRESSION: 1. Minimal left lower lobe subsegmental atelecta sis. [id number] Bone Density DXA Dual 10/21/2018 DOMONIQUE Pe [...] is recommended. This exam was interpreted at [id number] for CRISPIN Varela 15. Betzy Caba M.D., ms/ellierad:10/21/2018 12:45:40 Slate Cutter(s): Daniel Anthony Esophagus BA swallow EXAM: FLUOROSCOPY MODIFIED BARIUM SWALLOW 0 09/23/2018 [facility] video DX DATE: 09/23/2018 at 0942 hours [...] 1 view DATE: - Codman's view 2018 [facility] INDICATION: Suspected shunt malfunction. Center TECHNIQUE: lateral [...] XR CHEST 1 VIEW 09/17/[address] [facility] [place] [place] edical DATE: 09/17/2018 3:00 CDT Center INDICATION: Tube placement/removal/reposition - atlectasis COMPARISON: 09/15/2017 TECHNIQUE: AP chest. FINDINGS: Feeding tube has been remove d. Left upper extremity PICC and PRODUCT DEVELOPMENT TECHNICIAN shunt remains in position. Persistent small left [...] EXAM: FLUOROSCOPY MODIFIED BARIUM SWALLOW 0 09/16/2018 [facility] function video DX DATE: 09/16/2018 at 1349 hours Center INDICATION: Dysphagia - Comparison to [facility] 09/08/18. COMPARISON: 09/08/2018 modified barium swallow. TECHNIQUE: Oral barium contr ast of differing consistencies was given to the patient to assess swallowing mechanism. The study was performed in conjunction with speech pathology. FLUOROSCOPY TIME: 1 minute 29 seconds SKIN DOSE: 11.51 mGy DISCUSSION: The patient was given barium contrast of differe nt consistencies. Thin barium: Deep, silent penetration.. Burley barium: Normal. Pudding barium: Pooling into the [...] XR CHEST 1 VIEW 09/15/[address] [facility] [place] [place] edical DATE: 09/15/2018 3:00 T Center INDICATION: [...] XR CHEST 1 VIEW 09/14/[address] [facility] [place] [place] edical DATE: 09/14/2018 3:00 T Center INDICATION: [...] CT ABDOMEN AND PELVIS WITH CONTRAST 09/13/2018 [facility] contrast CT DATE: 09/13/2018 10:29 T Center [...] stric antrum. Right upper quadrant surgical clips. PRODUCT DEVELOPMENT TECHNICIAN shunt catheter tip at the lower central [...] CT EXAM: CT CHEST WITH CONTRAST 09/13/2018 [facility] DATE: 09/13/2018 10:28 CDT Center INDICATION: - [...] per Fleischner criteria : [facility] for nodules measuring up to 6 mm [...] EXAM: MRI BRAIN WITH AND WITHOUT CONTRAST [facility] MRI DATE: 09/13/2018 at 0221 hours. C [...] for EXAM: [facility]ST 1 [facility]: 09/13/2018 3:00 T Center INDICATION: Tube placement - ETT placement COMPARISON: 08/31/2018 TECHNIQUE: AP chest IMPRESSION: 1. Interval placement of en dotracheal tube with tip terminates 2 cm above the jennifer. Interval placement of feeding tube with adequate positioning. Again seen is left upper extremity PICC with stable p osition. Left sided PRODUCT DEVELOPMENT TECHNICIAN shunt is stable in positi on. 2. Small left pleural effus ion with left basilar atelectatic changes. No new lung lesions identified. 3. Cardiomediastinal silhou ette is enlarged, unchanged. Aortic atherosclerotic disease. 4. Osseous structures are stable. Abdomen AP DX EXAM: XR ABDOMEN 1 VIEW 09/12/2018 [facility] DATE: 09/12/2018 20:16 CDT Center INDICATION: - [...] DX EXAM: XR ABDOMEN 1 VIEW 09/12/2018 [facility] DATE: 09/12/2018 17:42 [facility] INDICATION: - NJ placement COMPARISON: 03/14/2011 TECHNIQUE: Limited AP view of the abdomen for tube placement assessment. Number of images: 1 FINDINGS: Transesophageal feeding tube tip in the proximal stomach and needs to be further advanced. Transesophageal suction tube: None. Other tubes and lines: A PRODUCT DEVELOPMENT TECHNICIAN shunt catheter noted . No other changes. IMPRESSION: Tube positions as above. Skull 1 view DX EXAM: XR SKULL 1 VIEW 09/11/2018 [facility] DATE: 09/11/2018 1:02 PM Center INDICATION: PRODUCT DEVELOPMENT TECHNICIAN shunt, MRI COMPARISON: Skull x-ray from 08/18/2018 TECHNIQUE: A single oblique radiograph of the sk ull. DISCUSSION: Ventricular cath eter with Hakim Codman valve, setting of 140 mm water, without interval change. IMPRESSION: Stable valve setting 140 mm water. Chest 1 v for EXAM: XR CHEST 1 VIEW 09/10/[address] [facility] [place] [place] edical Placement DX DATE: 09/10/2018 1:51 CDT Center INDICATION: Line Placement - Chest 1 view for li ne placement COMPARISON: 09/08/2017 TECHNIQUE: AP chest. FINDINGS: Left-sided chest wall PRODUCT DEVELOPMENT TECHNICIAN rosa nt is unchanged. Redemonstration of left [...] SWALLOW WITH ERICE CH PATHOLOGY 09/08/2018 [facility] function video DX DATE: 09/08/2018 12:40 CDT . ORDERING PHYSICIAN: Sadi Cortés MD CLINICAL INDICATION: - Complete with SHOE COBBLER Vandana gomez; TECHNIQUE: The patient swall owed [...] frequent nasal regurgitation. Thin barium: Symptomatic aspiration Burley: Symptomatic aspiration IMPRESSION: 1. Some traumatic aspiration with thin and nect ar consistencies 2. Pharyngeal stasis with nasal regurgitation 3. Please refer to separate speech pathology report for further detail and recommendations Chest 1 v for Chest 1 v for Placement DX 09/08/2018 9:56 CDT 0 09/08/2018 [facility] Placement DX HISTORY/INDICATIONS:73 years [...] Left PICC line terminates in the SVC. [id number] Angiogram cervical PROCEDURE: 08/19/2018 [facility] roger artery bilateral VR 1. 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 HISTORY: 73-year-old female patient with past medical history of meningioma of the planum sphenoidale resected in 2010, status post PRODUCT DEVELOPMENT TECHNICIAN shunt placement. Currently complaining of insidious onset [...] carotid arteries with normal filling of the mangle tender cloth al carotid artery branches. Smooth atheromatous plaques [...] XR SKULL 1 VIEW 08/18/[address] [facility] [place] [place] edical DATE: 08/18/2018 17:56 CDT Center INDICATION: [...] MRI EXAM: MRI BRAIN WITHOUT CONTRAST 9 [facility] EXAM: MRI ORBITS WITHOUT CONTRAST. Center DATE: [...] MRI EXAM: MRI BRAIN WITHOUT CONTRAST 9 [facility] EXAM: MRI ORBITS WITHOUT CONTRAST. Center DATE: [...] CT NECK WITH CONTRAST 08/18/2018 [facility] contrast CT DATE: 08/18/2018 7:19 [...] EXAM: FLUOROSCOPY MODIFIED BARIUM SWALLOW 0 08/18/2018 [facility] function video DX DATE: 08/18/2018 7[facility] - [facility]. ADDITIONAL INFORMATION: None. [...] CT EXAM: CT CHEST WITH CONTRAST 08/17/2018 [facility] DATE: 08/17/2018 17:07 CDT Center INDICATION: eft-sided [...] COMPARISON: No available prior chest CTs for [facility] FINDINGS: Lines and Tubes: Left sided, anterior chest wall PRODUCT DEVELOPMENT TECHNICIAN shunt is noted. Lower Neck: Please refer [...] the skull for shunt settin g. 08/17/2018 [facility] HISTORY: Evaluate shunt setting. Comparison with radiographs from August 19, 2011. TECHNIQUE: 3 views of the skull were obtained. FINDINGS: A Codman valve is placed, th e shunt valve setting is approximately 150 cc of water. FINDINGS: Radiographs for shunt valve setting. Brain/Neck CTA Exam: CTA HEAD AND NECK 08/16/2018 [facility] DATE: 08/16/2018 7:42 PM CDT Cent er [...] arteries and basilar artery are patent. Both vocational adviser are patent. Nonflow limiting stenot ic lesions in the left P2 and right P3-P4 segmen t. No AV malformation or aneurysms. IMPRESSION: Atheromatous disease in the carotid bulbs not resulting in significant stenosis by NASCET criteria. Greater than 50% stenosis in the para and supraclinoid right internal carotid artery. No flow-limiting stenotic lesions in both vocational adviser. Aberrant right subclavian artery Qualitative and quantitative assessments of stenosis in the carotid bulbs is made referencing the distal internal carotid artery Brain wo contrast CT EXAM: CT BRAIN WITHOUT CONTRAST 08/16/2018 [facility] DATE: 08/16/2018 4:26 PM CDT Cent er [...] Date Comments Source Respitory Rate 32 02/27/2020 [facility] Systolic (mm Hg) 106 02/27/2020 [facility] Diastolic (mm Hg) 64 02/27/2020 [facility] Respitory Rate 27 02/27/2020 [facility] Respitory Rate 32 02/27/2020 [facility] Systolic (mm Hg) 125 02/27/2020 [facility] [place] Diastolic (mm Hg) 73 02/27/2020 [facility] Systolic (mm Hg) 106 02/27/2020 [facility] [place] Diastolic (mm Hg) 52 02/27/2020 [facility] Temperature Oral (F) 98.4 F 02/23/2020 [facility] Temperature Oral (F) 98.8 F 02/22/2020 [facility] Temperature Oral (F) 96.8 F 02/22/2020 [facility] Respitory Rate 24 02/20/2020 [facility] Respitory Rate 21 02/20/2020 [facility] Temperature Oral (F) 98 F 02/20/2020 [facility] Respitory Rate 20 02/20/2020 [facility] Systolic (mm Hg) 110 02/20/2020 [facility] Diastolic (mm Hg) 52 02[facility]20[facility] [place] Systolic (mm Hg) 105 02/20/2020 [facility] Diastolic (mm Hg) 54 02/20/2020 [facility] Temperature Oral (F) 97.4 F 02/20/2020 [facility] Systolic (mm Hg) 129 02/20/2020 [facility] Diastolic (mm Hg) 60 02/20/2020 [facility] Temperature Oral (F) 98 F 02/16/2020 [facility] Heart Rate 60 02/16/2020 [facility] Heart Rate 73 02/16/2020 [facility] Heart Rate 66 02/16/2020 [facility] Height 149.86 cm 02/15/2020 [facility] Weight 84.545 02/15/2020 [facility] [place] BMI Calculated 37.65 02/15/2020 [facility] Heart Rate 79 12/20/2019 [facility] Respitory Rate 18 12/20/2019 [facility] Systolic (mm Hg) 107 12/20/2019 [facility] Diastolic (mm Hg) 71 12/20/[address] [facility] [place] [place] [facility] Heart Rate 81 12/20/2019 [facility] Respitory Rate 15 12/20/2019 [facility] Systolic (mm Hg) 112 12/20/2019 [facility] Diastolic (mm Hg) 77 12/20/[address] [facility] [place] [place] [facility] Heart Rate 80 12/20/2019 [facility] Respitory Rate 18 12/20/2019 [facility] Systolic (mm Hg) 119 12/20/2019 [facility] Diastolic (mm Hg) 71 12/20/2019 [facility] [place] Temperature Oral (F) 97.6 F 12/20/2019 [facility] Temperature Oral (F) 97.5 F 12/19/2019 [facility] Temperature Oral (F) 97.5 F 12/19/2019 [facility] Height 149.86 cm 12/06/2019 [facility] Height 149.86 cm 12/06/2019 [facility] Height 149.86 cm 12/06/2019 [facility] Systolic (mm Hg) 127 12/01/2019 [facility] Diastolic (mm Hg) 58 12/01/[address] [facility] [place] [place] [facility] Center Respitory Rate 21 12/01/2019 [facility] Respitory Rate 24 12/01/2019 [facility] Respitory Rate 19 12/01/2019 [facility] Systolic (mm Hg) 149 12/01/2019 [facility] Diastolic (mm Hg) 103 12/01/[address] [facility] [place] [place] [facility] Systolic (mm Hg) 146 12/01/2019 [facility] Diastolic (mm Hg) 65 12/01/[address] [facility] [place] [place] [facility] Temperature Oral (F) 98.6 F 11/30/2019 [facility] Temperature Oral (F) 98.5 F 11/30/2019 [facility] Temperature Oral (F) 98.0 F 11/30/2019 [facility] Respitory Rate 18 11/28/2019 [facility] Systolic (mm Hg) 149 11/28/2019 [facility] Diastolic (mm Hg) 66 11/28/[address] [facility] [place] [place] [facility] Respitory Rate 12 11/28/2019 [facility] Systolic (mm Hg) 133 11/28/2019 [facility] Center Diastolic (mm Hg) 71 11/28/[address] [facility] [place] [place] [facility] Respitory Rate 13 11/28/2019 [facility] Systolic (mm Hg) 167 11/28/2019 [facility] Center Diastolic (mm Hg) 70 11/28/[address] [facility] [place] [place] [facility] Respitory Rate 20 11/28/2019 [facility] Systolic (mm Hg) 171 11/28/2019 [facility] Diastolic (mm Hg) 72 11/28/[address] [facility] [place] [place] [facility] Respitory Rate 24 11/28/2019 [facility] Systolic (mm Hg) 162 11/28/2019 [facility] Center Diastolic (mm Hg) 73 11/28/[address] [facility] [place] [place] [facility] Resp[facility] Rate 25 11/28/2019 [facility] Systolic (mm Hg) 153 11/28/2019 [facility] Center Diastolic (mm Hg) 65 11/28/2019 [facility] Temperature Oral (F) 99.0 F 11/24/2019 [facility] Height 149.86 cm 11/23/2019 [facility] Weight 90 11/23/2019 [facility] BMI Calculated 40.07 11/23/2019 [facility] Temperature Oral (F) 97.4 F 11/22/2019 [facility] Temperature Oral (F) 97.9 F 11/22/2019 [facility] Heart Rate 88 11/22/2019 [facility] Temperature Oral (F) 98.8 F 03/04/2019 [facility] Heart Rate 78 03/04/2019 [facility] [place] Resp[facility] Rate 18 03/04/2019 [facility] Systolic (mm Hg) 126 03/04/2019 [facility] Center Diastolic (mm Hg) 64 03/04/2019 [facility] Temperature Oral (F) 97.9 F 03/04/2019 [facility] Heart Rate 75 03/04/2019 [facility] Respitory Rate 18 03/04/2019 [facility] Systolic (mm Hg) 135 03/04/2019 [facility] Diastolic (mm Hg) 69 03/04/[address] [facility] [place] [place] [facility] [place] Temperature Oral (F) 98.6 F 03/04/2019 [facility] Heart Rate 68 03/04/2019 [facility] Respitory Rate 18 03/04/2019 [facility] Systolic (mm Hg) 147 03/04/2019 [facility] Diastolic (mm Hg) 77 03/04/2019 [facility] Height 149.86 cm 03/01/2019 [facility] BMI Calculated 40.48 02/05/2019 [facility] Temperature Oral (F) 97.6 F 01/10/2019 [facility] Heart Rate 78 01/10/2019 [facility] Respitory Rate 18 01/10/2019 [facility] Systolic (mm Hg) 109 01/10/2019 [facility] Center Diastolic (mm Hg) 70 01/10/2019 [facility] Temperature Oral (F) 97.6 F 01/10/2019 [facility] Heart Rate 80 01/10/2019 [facility] Respitory Rate 18 01/10/2019 [facility] Systolic (mm Hg) 112 01/10/2019 [facility] Center Diastolic (mm Hg) 60 01/10/[address] [facility] [place] [place] [facility] Temperature Oral (F) 97.9 F 01/10/2019 [facility] Heart Rate 84 01/10/2019 [facility] Respitory Rate 18 01/10/2019 [facility] Systolic (mm Hg) 106 01/10/2019 [facility] Diastolic (mm Hg) 67 01/10/[address] [facility] [place] [place] [facility] Height 152.4 cm 12/27/2018 [facility] Height 152.4 cm 12/27/2018 [facility] Height 152.4 cm 12/27/2018 [facility] Weight 92 12/24/2018 [facility] BMI Calculated 39.61 12/24/2018 [facility] Temperature Oral (F) 98.8 F 11/29/2018 [facility] Heart Rate 78 11/29/2018 [facility] Systolic (mm Hg) 174 11/29/2018 [facility] Diastolic (mm Hg) 74 11/29/2018 [facility] Respitory Rate 20 11/29/2018 [facility] Systolic (mm Hg) 190 11/29/2018 [facility] Diastolic (mm Hg) 79 11/29/2018 [facility] Height 149.86 cm 11/29/2018 [facility] BMI Calculated 45.54 11/29/2018 [facility] Weight 102.273 11/29/2018 [facility] Systolic (mm Hg) 163 11/29/2018 [facility] Center Diastolic (mm Hg) 83 11/29/2018 [facility] Respitory Rate 20 11/29/2018 [facility] Heart Rate 80 11/29/2018 [facility] Temperature Oral (F) 98.7 F 11/29/2018 [facility] Systolic (mm Hg) 139 09/23/2018 [facility] Diastolic (mm Hg) 66 09/23/2018 [facility] Respitory Rate 18 09/23/2018 [facility] Temperature Oral (F) 97.8 F 09/23/2018 [facility] Heart Rate 70 09/23/2018 [facility] Temperature Oral (F) 97.2 F 09/23/2018 [facility] Heart Rate 66 09/23/2018 [facility] Systolic (mm Hg) 147 09/23/2018 [facility] Center Diastolic (mm Hg) 63 09/23/2018 [facility] Respitory Rate 18 09/23/2018 [facility] Systolic (mm Hg) 147 09/23/2018 [facility] Diastolic (mm Hg) 53 09/23/2018 [facility] Respitory Rate 18 09/23/2018 [facility] Heart Rate 67 09/23/2018 [facility] Temperature Oral (F) 98.3 F 09/23/2018 [facility] BMI Calculated 40.88 09/21/2018 [facility] Weight 91.818 09/21/2018 [facility] Temperature Oral (F) 98.1 F 09/20/2018 [facility] Temperature Oral (F) 97.9 F 09/20/2018 [facility] Respitory Rate 30 09/20/2018 [facility] Systolic (mm Hg) 174 09/20/2018 [facility] Diastolic (mm Hg) 74 09/20/2018 [facility] Respitory Rate 27 09/20/2018 [facility] Systolic (mm Hg) 167 09/20/2018 [facility] Diastolic (mm Hg) 70 09/20/2018 [facility] Temperature Oral (F) 97.5 F 09/20/2018 [facility] Respitory Rate 35 09/20/2018 [facility] Systolic (mm Hg) 175 09/20/2018 [facility] Diastolic (mm Hg) 71 09/20/2018 [facility] Height 149.86 cm 09/15/2018 [facility] Height 149.86 cm 09[facility]15/2018 [facility] Height 149.86 cm 09/15/2018 [facility] Heart Rate 101 09/11/2018 [facility] Heart Rate 98 09/11/2018 [facility] Heart Rate 95 09[facility]11/2018 [facility] Respitory Rate 19 09/10/2018 [facility] Systolic (mm Hg) 161 09/10/2018 [facility] Diastolic (mm Hg) 101 09/10/2018 [facility] [place] Respitory Rate 16 09/10/2018 [facility] Systolic (mm Hg) 148 09/10/2018 [facility] Diastolic (mm Hg) 67 09/10/2018 [facility] Systolic (mm Hg) 121 09/09/2018 [facility] Diastolic (mm Hg) 54 09/09/2018 [facility] Respitory Rate 15 09/09/2018 [facility] BMI Calculated 41.99 09/08/2018 [facility] Height 149.86 cm 09/08/2018 [facility] Weight 94.3 09/08/2018 [facility] Systolic (mm Hg) 110 08/20/2018 [facility] Diastolic (mm Hg) 66 08/20/2018 [facility] Respitory Rate 33 08/20/2018 [facility] Temperature Oral (F) 98.0 F 08/20/2018 [facility] Temperature Oral (F) 97.9 F 08/19/2018 [facility] Respitory Rate 20 08/19/2018 [facility] Temperature Oral (F) 97.8 F 08/19/2018 [facility] Systolic (mm Hg) 138 08/19/2018 [facility] Center Diastolic (mm Hg) 76 08/19/[address] [facility] [place] [place] [facility] Center Respitory Rate 18 08/19/2018 [facility] Systolic (mm Hg) 144 08/19/2018 [facility] Center Diastolic (mm Hg) 63 08/19/[address] [facility] [place] [place] [facility] Heart Rate 92 08/19/2018 [facility] Heart Rate 72 08/18/2018 [facility] Heart Rate 70 08/18/2018 [facility] BMI Calculated 49.69 08/17/2018 [facility] Height 149.86 cm 08/17/2018 [facility] Weight 111.6 08[facility]17/2018 [facility] Weight 113.636 08/16/2018 [facility] Height 152.4 cm 08/16/2018 [facility] BMI Calculated 48.93 08/16/2018 [facility] Diastolic (mm Hg) 60.0 03/25/[address] [facility] [place] [place] [facility] Systolic (mm Hg) 151.0 03/25/2011 [facility] Temperature Oral (F) 97.6 F 03/25/2011 [facility] Heart Rate 87.0 03/25/2011 [facility] Respitory Rate 20.0 03/25/2011 [facility] Temperature Oral (F) 97.8 F 03/25/2011 [facility] Respitory Rate 20.0 03/25/2011 [facility] Heart Rate 98.0 03/25/2011 [facility] Systolic (mm Hg) 163.0 03/25/2011 [facility] Center Diastolic (mm Hg) 82.0 03/25/[address] [facility] [place] [place] [facility] Diastolic (mm Hg) 68.0 03/25/[address] [facility] [place] [place] [facility] Systolic (mm Hg) 156.0 03/25/2011 [facility] Temperature Oral (F) 97.7 F 03/25/2011 [facility] Heart Rate 95.0 03[facility]25/2011 [facility] Respitory Rate 20.0 03/25/2011 [facility] Weight 90.909 03/22/2011 [facility] Height 149.86 cm 03/22/2011 [facility] Weight 90.909 03/22/2011 [facility] Height 149.86 cm 03/22/2011 [facility] Diastolic (mm Hg) 56.0 03/15/[address] [facility] [place] [place] [facility] Systolic (mm Hg) 128.0 03/15/2011 [facility] Respitory Rate 16.0 03/15/2011 [facility] Heart Rate 85.0 03/15/2011 [facility] Temperature Oral (F) 96.6 F 03/15/2011 [facility] Diastolic (mm Hg) 91.0 03/15/[address] [facility] [place] [place] [facility] Systolic (mm Hg) 121.0 03/15/2011 [facility] Respitory Rate 18.0 03/15/2011 [facility] Heart Rate 78.0 03[facility]15/2011 [facility] Temperature Oral (F) 98.2 F 03/15/2011 [facility] Diastolic (mm Hg) 39.0 03/15/[address] [facility] [place] [place] [facility] Systolic (mm Hg) 170.0 03/15/2011 [facility] Respitory Rate 18.0 03/15/2011 [facility] Temperature Oral (F) 98.0 F 03/15/2011 [facility] Heart Rate 93.0 03/15/2011 [facility] Weight 83.665 03/14/2011 [facility] Height 149.86 cm 03/14/2011 [facility] Heart Rate 97.0 03/07/2011 [facility] Respitory Rate 20.0 03/07/2011 [facility] Systolic (mm Hg) 140.0 03/07/2011 [facility] Diastolic (mm Hg) 66.0 03/07/[address] [facility] [place] [place] [facility] Temperature Oral (F) 98.4 F 03/07/2011 [facility] Diastolic (mm Hg) 69.0 03/07/[address] [facility] [place] [place] [facility] Systolic (mm Hg) 140.0 03/07/2011 [facility] Respitory Rate 20.0 03/07/2011 [facility] Temperature Oral (F) 98.6 F 03/07/2011 [facility] Heart Rate 115.0 03/07/2011 [facility] Systolic (mm Hg) 131.0 03/06/2011 [facility] Temperature Oral (F) 97.6 F 03/06/2011 [facility] Respitory Rate 18.0 03/06/2011 [facility] Heart Rate 104.0 03/06/2011 [facility] Diastolic (mm Hg) 44.0 03/06/[address] [facility] [place] [place] [facility] Height 149.86 cm 02/26/2011 [facility] Weight 90.909 02/26/2011 [facility] Temperature Oral (F) 98.2 F 02/26/2011 [facility] Heart Rate 90.0 02/26/2011 [facility] Respitory Rate 18.0 02/26/2011 [facility] Systolic (mm Hg) 154.0 02/26/2011 [facility] Diastolic (mm Hg) 54.0 02/26/[address] [facility] [place] [place] [facility] Temperature Oral (F) 98.9 F 02/26/2011 [facility] Heart Rate 93.0 02/26/2011 [facility] Respitory Rate 18.0 02/26/2011 [facility] Systolic (mm Hg) 153.0 02/26/2011 [facility] Diastolic (mm Hg) 60.0 02/26/[address] [facility] [place] [place] [facility] Temperature Oral (F) 98.7 F 02/26/2011 [facility] Respitory Rate 20.0 02/26/2011 [facility] Systolic (mm Hg) 149.0 02/26/2011 [facility] Diastolic (mm Hg) 62.0 02/26/[address] [facility] [place] [place] [facility] Heart Rate 95.0 02/25/2011 [facility] Weight 100.0 02/20/2011 [facility] Height 149.86 cm 02/19/2011 [facility] Weight 100.0 02[facility]19/2011 [facility] Heart Rate 104.0 02/19/2011 [facility] Temperature Oral (F) 98.6 F 02/19/2011 [facility] Respitory Rate 20.0 02/19/2011 [facility] Systolic (mm Hg) 128.0 02/19/2011 [facility] Diastolic (mm Hg) 63.0 02/19/[address] [facility] [place] [place] [facility] Respitory Rate 20.0 02/19/2011 [facility] Systolic (mm Hg) 115.0 02/19/2011 [facility] Diastolic (mm Hg) 58.0 02/19/[address] [facility] [place] [place] [facility] Heart Rate 110.0 02/19/2011 [facility] Temperature Oral (F) 97.5 F 02/19/2011 [facility] Diastolic (mm Hg) 64.0 02/18/[address] [facility] [place] [place] [facility] Temperature Oral (F) 98.4 F 02/18/2011 [facility] Heart Rate 108.0 02[facility]18/2011 [facility] Respitory Rate 18.0 02/18/2011 [facility] Systolic (mm Hg) 152.0 02/18/2011 [facility] Height 149.86 cm 01/31/2011 [facility] Weight 100.455 01/31/2011 [facility] Systolic (mm Hg) 116.0 01/31/2011 [facility] Diastolic (mm Hg) 55.0 01/31/[address] [facility] [place] [place] [facility] Peripheral Pulse Rate 67.0 01/31/2011 [facility] Respitory Rate 20.0 01/31/2011 [facility] Temperature Oral (F) 98.5 F 01/31/2011 [facility] Peripheral Pulse Rate 65.0 01/31/2011 [facility] Systolic (mm Hg) 148.0 01/31/2011 [facility] Diastolic (mm Hg) 58.0 01/31/[address] [facility] [place] [place] [facility] Diastolic (mm Hg) 62.0 01/31/[address] [facility] [place] [place] [facility] Peripheral Pulse Rate 64.0 01/31/2011 [facility] Systolic (mm Hg) 153.0 01/31/2011 [facility] Respitory Rate 21.0 01/31/2011 [facility] Temperature Oral (F) 97.8 F 01/31/2011 [facility] Respitory Rate 16.0 01/31/2011 [facility] Temperature Oral (F) 98.1 F 01/31/2011 [facility] Height 149.86 cm 01/23/2011 [facility] Weight 89.0 01/23/2011 [facility] Encounters Location Location Encounter Encounter Reason Attending ADM DC Stat us Source Details Type Number For Provider Date Date Visit [facility] AA [id number] LIFE ANKUR CARABALLO 01/23 01/23 Active [facility] 0 FLIGHT [facility] Inpatient [id number] BRAIN KELLEY DAY 01/23 01/31 Act kimberly [facility] 7 MASS/DONNIE [facility] KE Center IR [id number] BRAIN MEILANI 01/31 02/19 Active 4 MASS MAP Rehabili tation [facility] Inpatient [id number] HYDROCEP KELLEY DAY 02/19 02/26 A ctive [facility] 0 HALUS [facility] IR [id number] SDH MEILANI 02/26 03/07 Active 9 MAPA Rehabili tation [facility] OU [id number] DEHYDRAT MI 03/14 03/15 Active M [facility] 1 ION KORIMILLI [facility] Inpatient [id number] DEHYDRAT NOÉ 03/22 03/25 Activ e [facility] 2 ION,PAIN [facility] CONTROL Center MNA Phone [id number] 08/16 08/18 Misch er Neurosurger Message Neur o y [facility] Inpatient [id number] Malia 08/16 08/20 [facility] Jorge Alberto 5 Dayan [facility] Inpatient [id number] Sadi 09/09 09/10 Jorge Alberto 0 Okpara [facility] Inpatient [id number] Kasi Scottby 09/12 09/20 [facility] Jorge Alberto [facility] Observation [id number] David 09/21 09/23 [facility] [place] 3 [facility] Outpt Diag [id number] Suur 10/21 10/22 [facility] 3 Bil P earland [facility] Outpt Diag [id number] Suur 11/18 11/19 [facility] 4 Bil P earland Imaging [facility] Emergency [id number] Abel 11/29 11/29 [facility] Jorge Alberto 6 Stan [facility] Inpatient [id number] Luther 12/24 01/10 [facility] 7 Taj [facility] Inpatient [id number] Jai 02/05 03/04 [facility] Jorge Alberto 0 Hernán [facility] Inpatient [id number] Keagan 11/21 12/19 [facility] 5 Christopher [facility] Outpt Diag [id number] Andre 01/04 01/05 [facility] 5 Fernandez Her restrepo Imaging [facility] Inpatient [id number] David 02/14 02/26 [facility] 0 Hellen [facility] Procedures Procedure Code Date Perfomer Comments Source Transcatheter [id number] 02/21/2019 [facility] retrieval, Medical percutaneous, of Center intravascular foreign body (eg, fractured venous or arterial catheter), includes radiological supervision and interpretation, and imaging guidance (ultrasound or fluoroscopy), when performed Selective catheter [id number] 08/19/2018 [facility] as placement, vertebral Medi roger artery, unilateral, Cente r with angiography of the ipsilateral vertebral circulation and all associated radiological supervision and interpretation, includes angiography of the cervicocerebral arch, when performed Insertion or [id number] 01/26/2011 [facility] Replacement of Skull Medi roger Tongs or Halo Center Traction Device Other Excision or [id number] 01/26/2011 [facility] Destruction of Lesion Med ical or Tissue of Brain Center Excision of Lesion or [id number] 01/24/2011 [facility] Tissue of Cerebral Medica l Meninges Risco Intracranial Pressure 01.10 01/24/2011 [facility] [place] Transfusion of Packed [id number] 01/24/2011 [facility] Cervical laminectomy [id number] [facility] her Neuro,[facility], DOMONIQUE Azul, DOMONIQUE Kelly,[facility] section [id number] [facility] Neuro,[facility], DOMONIQUE Azul, DOMONIQUE Kelly,[facility] Resection [id number] [facility] Neuro,[facility], DOMONIQUE Azul, DOMONIQUE Kelly,[facility] Shunt construction [id number] [facility], DOMONIQUE Azul, DOMONIQUE Kelly,[facility] Tonsillectomy [id number] [facility] Neuro,[facility] Azul, DOMONIQUE Kelly,[facility] Assessment and Plan Assessment and Plan Date Source Extracted from:Title: Neurology Progress Note 02/27/2020 [facility] Author: Marlen Parra MD [...] who presented as a direct transfer from [facility] due to concerns of MG exacerbation. She initially pres ented one week ago to [facility] with hypoglicemia and was found to have PNA. She completed antibiotics (Cefuroxime and Clynda per external Rx) and was discharged 5 days ago with PT. Per , the next day of her discharged she suddenly developed trouble standing due to lower extremity weakness, hypophonia and dysarthria. She didn't have any respiratory problems. She was broug ht back to [facility] where she was eval uated by Neurology and didn't think that it was a MG exacerbation so patient's family requested transfer to [facility]. At [facility] patient had MBS T which showed severe [...] 160 mg oral tablet) 1 tab PO [id number] 02/17/20 thiamine 200 mg PO Daily Unscheduled [...] 5/5 strength in bilateral biceps/ triceps/deltoid, hand winding lathe operator 5/5, AG in b/l lower extremities no [...] in respiratory function as well as hypophonia. CONTROL SYSTEMS DESIGNER MG Exacerbation - Weakness likely multifactorial [...] Code Dispo: SNF vs back to personal longterm /assisted living with home health PT/OT/SHOE COBBLER Marlen Parra MD PGY-2 | Neurology [facility] CPT: 11559 DX: G70.01 I have examined this patient with the re sident, Dr. Parra, and agree with the documentation and findings as recorded. I concur with the plan as outlined. Clovis Miguel MD Professor of Neurology Extracted from:Title: Consult Note Author: Akash Skaggs MD Date: 02/25/20 75-year-old female with a past medical h istory of dementia,and angioma status post resectionwith PRODUCT DEVELOPMENT TECHNICIAN shunt, type 2 diabetes, hypertension, hyperlipidemia, CAD,chronic [...] who presented as a direct transfer from [facility] due to concerns of MG exacerbation. She initially prese nted one week ago to [facility] with hypoglicemia and was found to have PNA. She completed antibiotics (Cefuroxime and Clynda per external Rx) and was discharged 5 days ago with PT. Per penny fitzgerald, the next day of her discharged s he suddenly developed trouble standing due to lower extremity weakness, hypophonia and dysarthria. She didn't have any respiratory problems. She was tiffanie t back to [facility] where she was evalu ated by Neurology and didn't think that it was a MG exacerbation so patient's family requested transfer to [facility]. At [facility] patient had MBST which showed [...] 4/5 Tricep 4+/5 4+/5 Bicep 5/5 5/5 Legal Instructor 5/5 5/5 Iliopsoas 4/5 4/5 Quadricep 4/5 [...] so family would like to avoid IVIG. CONTROL SYSTEMS DESIGNER Possible MG Exacerbation - Admit to 5J - posteriorly transferred to [facility] for observat ion - NIF, FVC q3-6 [...] Pending THE FOLLOWING WERE PRESENT ON ADMISSION: CONTROL SYSTEMS DESIGNER- Dementia Cardiovascular- HTN, HFrEF 50% Infectious- [...] was updated about plan in the evening. CONTROL SYSTEMS DESIGNER MG Exacerbation - Monitor closely - NIF, FVC q3-6 hours - Continue home pyridostigmine 60mg q8H - Resume home prednisone 20mg daily - Incentive spirometery - Continue home CPAP at night Dysphagia - NPO per speech therapy - Pending MBS - Can give meds in puree/pudding per SHOE COBBLER PSYCH Depression Anxiety - Continue home sertraline [...] consult Marlen Parra MD PGY-2 | Neurology [facility] Neurology staff Teaching physician statement I reviewed the residents note, personall y reviewed all the patients labs and imaging studies and personally performed a complete neurological exam. I discussed the assessment and plan of care and agree with the plan as outlined in the resident's note. David Macedo, DO [facility], Neurohospitalist End Maker of Neurology Extracted from:Title: General Neurology Progress Note 2019 [facility] Author: Marlen Parra MD [...] who presented as a direct transfer from [facility] due to concerns of MG exacerbation. She initially pres ented one week ago to [facility] with hypoglicemia and was found to have PNA. She completed antibiotics (Cefuroxime and Clynda per external Rx) and was discharged 5 days ago with PT. Per , the next day of her discharged she suddenly developed trouble standing due to lower extremity weakness, hypophonia and dysarthria. She didn't have any respiratory problems. She was broug ht back to [facility] where she was eval uated by Neurology and didn't think that it was a MG exacerbation so patient's family requested transfer to [facility]. At [facility] patient had MBS T which showed severe [...] at bedside and answered all his questions. CONTROL SYSTEMS DESIGNER MG Exacerbation - Weakness likely multifactorial [...] IPR Marlen Parra MD PGY-2 | Neurology [facility] Neurology staff Teaching physician statement I reviewed [...] pain, will change dressing. David Macedo DO [facility], Neurohospitalist End Maker of Neurology Extracted from:Title: Transfusion Medicine/Apheresis Consult [...] who presented as a direct transfer from [facility] due to concerns of MG exacerbation. She initially pres ented one week ago to [facility] with hypoglycemia and was found to have PNA. She completed antibiotics (Cefuroxime and Clynda per external Rx) and was discharged 5 days ago with PT. Per , the next day of her discharged she suddenly developed trouble standing due to lower extremity weakness, hypophonia and dysarthria. She didn't have any respiratory problems. She was broug ht back to [facility] where she was eval uated by Neurology and didn't think that it was a MG exacerbation so patient's family requested transfer to [facility]. At [facility] patient had MBS T which showed severe [...] Thanks for consultation. Mariajose Garsia MD ID# [id number] Extracted from:Title: General Neurology HPI Author: Natalie [...] who presented as a direct transfer from [facility] due to concerns of MG exacerbation. She initially prese nted one week ago to [facility] with hypoglicemia and was found to have PNA. She completed antibiotics (Cefuroxime and Clynda per external Rx) and was discharged 5 days ago with PT. Per h band, the next day of her discharged s he suddenly developed trouble standing due to lower extremity weakness, hypophonia and dysarthria. She didn't have any respiratory problems. She was tiffanie t back to [facility] where she was evalu ated by Neurology and didn't think that it was a MG exacerbation so patient's family requested transfer to [facility]. At [facility] patient had MBST which showed [...] 4/5 Tricep 4+/5 4+/5 Bicep 5/5 5/5 Legal Instructor 5/5 5/5 Iliopsoas 4/5 4/5 Quadricep 4/5 [...] so family would like to avoid IVIG. CONTROL SYSTEMS DESIGNER Possible MG Exacerbation - Admit to - posteriorly transferred to [facility] for observat ion - NIF, FVC q3-6 [...] Pending THE FOLLOWING WERE PRESENT ON ADMISSION: CONTROL SYSTEMS DESIGNER- Dementia Cardiovascular- HTN, HFrEF 50% Infectious- [...] was updated about plan in the evening. CONTROL SYSTEMS DESIGNER MG Exacerbation - Monitor closely - NIF, FVC q3-6 hours - Continue home pyridostigmine 60mg q8H - Resume home prednisone 20mg daily - Incentive spirometery - Continue home CPAP at night Dysphagia - NPO per speech therapy - Pending MBS - Can give meds in puree/pudding per SHOE COBBLER PSYCH Depression Anxiety - Continue home sertraline [...] consult Marlen Parra MD PGY-2 | Neurology [facility] Neurology staff Teaching physician statement I reviewed the residents note, personall y reviewed all the patients labs and imaging studies and personally performed a complete neurological exam. I discussed the assessment and plan of care and agree with the plan as outlined in the resident's note. David Macedo DO [facility], Neurohospitalist End Maker of Neurology Extracted from:Title: Progress Note 12/20/2019 [facility] Author: Madhavi Calvin MD Date: 12/19/19 Ms. Floyd is a 74 y/o F with PMH dementia, HTN, obesity, T2DM, TN with prior cardiac arrest 35 years ago, myasthenia gravis on prednisone, hypothyroidism who presented on 11/21 from her [facility] s/ p fall. Found to have cervical [...] C5-6 ACDF, posterior spinal fusion with open [id number] laminectomy. The patient was intubated and prone [...] as other placementversusPEG tube. 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 Past Surgical History: PRODUCT DEVELOPMENT TECHNICIAN shunt placement Tonsillectomy Cervical laminectomy Recent C5-6 [...] NAD HEENT: Bruising on face and neck/shoulders. [place] J collar i n place. LUNGS: Clear [...] Neck flexion/extension was not testable because of [place] collar. 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 Emmanuel Thayer MD PGY-3, Neurology MSO# [id number] [facility] [employer] THE FOLLOWING WERE PRESENT ON INITIAL ASSESSMENT: CONTROL SYSTEMS DESIGNER -Myasthenia gravis, C7 cervical fracture from trauma [...] decreases to any degree please reconsult neurology ([phone]) to discuss cristian sma exchange. Patient's called [facility] on 12/06/2019 to advise that she [...] Coy MD Extracted from:Title: Progress Note 11/28/2019 [facility] Author: Dell Carrasco MD Date: 11/28/19 1.C7 cervical fracture(S12.600A) 2.Hyperextension injury of cervical spine(S19.80XA) Cleared by cardiology now to have spine surgery. To OR tomorrow withneurosurgery-spine. [place]-J at all times. 3.Lumbar compression fracture(S32.000A) Old per Neurosurgery. 4.Traumatic mediastinal hematoma(S27.899A) Had negative esophagogram. Vascular injury ruled out per imaging. Per Trauma, likely secondary to C7 fracture. 5.HTN - Hypertension(I10) Controlled on norvasc. 6.Diabetes type 2, uncontrolled(E11.65) Continue [id number] BID and continue lispro regular insulin S [...] obesity, diabetes mellitus, questionable history of prior TN/cardiac arrest ~35 y ears ago "during an [...] Ms. Parikh has been seen by a traffic representative in the past, Dr. Sanchez Demarco at [facility]. She was last seen there ~8 [...] of above. Ms. Parikh is admitted to [facility] after a tri p and fall resulting [...] FAMILY HISTORY: Father - in his 70s "[place]" SOCIAL HISTORY: Patient is , she lives in an assisted living center. 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 Denies history of smoking, alcohol or illicit [...] 20mg PO QD Sertraline 25mg PO QD [id number] PO TID Labs: 11/21 0735 Lactic Acid [...] diabetes mellitus, morbid obesity, questionable hx of TN ~35 years ago during arteriogram, and hx of falls is admitted to [facility] s/p fall on 11/21/19 with hype rextension of C7. Cardiology consulted for preoperative risk stratification. 1. Preoperative risk stratification in p atient with multiple co-morbidities and risk factors for coronary artery disease - Pt has been followed by a traffic representative in [place], Dr. Sanchez Demarco, though she has not seen Dr. Demarco in ~8 months and he has since retired from practice. No r ecent stress test or heart catheterization - No recent hx of chest pain/pressure/sh ortness of breath/syncope/near syncope. Falls are all reported to be mechanical in a patient with known Myasthenia gravis - Pt with questionable hx of cardiac arr est vs TN ~35 years ago during an arteriogram - [...] APRN, MSN, ACNP- Department of Cardiology Pager# [phone] MSO# [id number] Addendum by Sanya Gatica MD on 11/22/2019 22:35 Discussed with the cardiology VIDEO COORDINATOR's team, Melina alexis. Patient was getting MRI, [...] Extracted from:Title: Cardiology Progress Note * 11/28/2019 [facility] Author: Sanya Gatica MD Date: 11/27/19 Impression and Plan Discussed with the cardiology VIDEO COORDINATOR's team, Ms. Arlette Gifford. 74 year-old woman with PMHX significant for dementia, hyperlipidemia, hypertension, diabetes mellitus, morbid obesity, questionable hx of TN ~35 years ago during arteriogram, and hx of falls is admitted to [facility] s/p fall on 11/21/19 with hype rextension of C7. Cardiology consulted for preoperative risk stratification. Clinically unchanged. 1. Preoperative cardiac evaluation and risk stratification - Patient has multiple co-morbidities an d risk factors for CAD including diabetes mellitus, morbid obesity, hyperlipidemia, hypertension - Patient follows up with traffic representative gucci Giordano, Dr. Sanchez Demarco, though she [...] - Patient with h/o cardiac arrest vs TN ~35 years ago during an arteriogram, spouse [...] a new COVID test today. The cardiology VIDEO COORDINATOR, Ms. Gifford has discus sed the plan of care with bedside RN and with Dr. Perry via perfect serve. Extracted from:Title: Cardiology Consult Note Author: Melina Gomez VIDEO COORDINATOR Date: 11/22/19 CONSULTATION PATIENT NAME: Langoff. Franci Barrera ADMISSION DATE: 11/22/2019 CONTSULTED PHYSICIAN: Dr. Sanya Gatica SERVICE: Cardiology CHIEF COMPLAINT: s/p trip and fall on ma tt at her assisted living facility on 11/21/19 HISTORY OF PRESENT ILLNESS: 74 year-old woman with a PMHX significant for dementia, hyperlipidemia, hypertension, morbid obesity, diabetes mellitus, questionable history of prior TN/cardiac arrest ~35 y ears ago "during an [...] Ms. Parikh has been seen by a traffic representative in the past, Dr. Sanchez Demarco at [facility]. She was last seen there ~8 [...] of above. Ms. Parikh is admitted to [facility] after a tri p and fall resulting [...] FAMILY HISTORY: Father - in his 70s "[place]" SOCIAL HISTORY: Patient is , she lives in an assisted living center. 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 Denies history of smoking, alcohol or illicit [...] 20mg PO QD Sertraline 25mg PO QD [id number] PO TID Labs: 11/21 0735 Lactic Acid [...] diabetes mellitus, morbid obesity, questionable hx of TN ~35 years ago during arteriogram, and hx of falls is admitted to [facility] s/p fall on 11/21/19 with hype rextension of C7. Cardiology consulted for preoperative risk stratification. 1. Preoperative risk stratification in p atient with multiple co-morbidities and risk factors for coronary artery disease - Pt has been followed by a traffic representative in [place], Dr. Sanchez Demarco, though she has not seen Dr. Demarco in ~8 months and he has since retired from practice. No r ecent stress test or heart catheterization - No recent hx of chest pain/pressure/sh ortness of breath/syncope/near syncope. Falls are all reported to be mechanical in a patient with known Myasthenia gravis - Pt with questionable hx of cardiac arr est vs TN ~35 years ago during an arteriogram - [...] APRN, MSN, ACNP- Department of Cardiology Pager# [phone] MSO# [id number] Addendum by Sanya Gatica MD on 11/22/2019 22:35 Discussed with the cardiology VIDEO COORDINATOR's team, Ms. Melina alexis. Patient was getting [...] Cardiology Extracted from:Title: Neurology Discharge Summary 09/20/2018 [facility] Author: Sean Coy MD Date: 09/19/18 INPATIENT NEUROLOGY DISCHARGE SUMMARY Patient Name: Franci Floyd Date of Admission: 09/12/18 Date of Discharge: 09/19/18 Admission Diagnosis: Weakness, Dysphagia Discharge Diagnoses: Bulbar Myasthenia Gravis Consults Obtained: Opthalmology, ENT Brief HPI: Mrs. Floyd is a 73 y.o. 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 She [...] Important Plans for Future Care: Follow up [facility]. Please call . Clinic located at [address], [address] [place], [place] [address]. PCP follow-up within 2 weeks Discharge Instructions: Please continue to take all medications as prescribed and follow up as intstructed. 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 Discharge To Location: Home Please call our nurse coordinator at if you have any questions/concerns. 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 Has indicated that she wants her to be her medical power of regulatory attorney permanently. He agrees with full code. 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 Supportive medicine was consulted for goals of care discussion. #Goals of care/palliative -The patient does not have an advanced directive. -CODE STATUS is currently full code. -The next of kin is the patient's [phone]. -Unable to discussgoals of care today si [...] admission. Please start the patient onsenna2 tabletstwice daily,[id number] twice dailyandbisacodyl suppository as neededfor constipation. -Pain: [...] page us via the Memor jumana Azul [facility] page tandem operator or via the following pager: [phone], [phone]. Nely Britt MD PGY2 [facility] [...] care. We will follow along with you. [place] Supportive Medicine Pager:#[phone](24 hours / 7 days) Extracted from:Title: Discharge Summary 09/10/2018 [facility] Author: Sadi Cortés MD Date: 09/09/18 Discharge Information Discharge Summary Information: Discharg e diagnosis, Discharge medications (See Discharge Medications). Fluctuating left eye vision loss Dysphagia Essential hypertension Hyperlipidemia History of PRODUCT DEVELOPMENT TECHNICIAN shunt History of craniotomy status post meningioma resection Discharge Plan Discharge Summary Plan Discharge Status: stable. Discharge instructions given. Discharge disposition: Higher level of care. Discharge planning greater than 30 minutes Extracted from:Title: Clinical Document Author: Kasi Amato MD Date: 09/09/18 NEUROLOGY and CRITICAL CARE MEDICINE [facility] Consultation / Progress Note Assessment [...] seeking to go to the Medical Center ([facility]) They wish to continue to seek medical care here at [facility]. History of Present Illness 73F [...] was articulate. Fluent, if slow. Comprehension intact. Continuous Mining Machine Operator were surprisingly strong bilaterally. The patient was [...] artery. No flow-limiting stenotic lesions in both vocational adviser. Aberrant right subclavian artery CT Chest (08/18/18) [...] - - - - - EKG (09/07/18) [facility] Sinus rhythm Inferior infarction Anterior infarction T wave abnormality, consider lateral ischemia CT Head (09/07/18) [facility] (Report) Right frontal craniotomy. Orbits [...] (SEP 08) PTT 32.0 (SEP 08) Laboratories [facility] (09/07/18) WBC 7.4, normal differential. 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 Speech therapy to evaluate the patient PT/OT eval and treat Will reconsult meds once achieved by [facility] per protocol Supportive care management Extracted from:Title: Ophthalmology Consult Note 08/20/2018 [facility] Author: Sivan Thomas MD Date: 08/17/18 CONSULTATION OPHTHALMOLOGY PATIENT NAME: FRANCI FLOYD MR #: [id number] ROOM: [place] [address] REQUESTING TEAM/ATTENDING: ED DATE OF CONSULT: 08/17/2018 CONSULTING ATTENDING: Kalani Jacobo MD CONSULTING RESIDENT: Sivan Laws MD REASON FOR CONSULT: left ptosis CHART REVIEWED: YES HISTORY OF PRESENT ILLNESS: 73 year old female with HTN, HLD, planum sphenoidal meningioma, right frontal craniotomy for meningioma s/p resection in 2010, hydrocephalus s/p craniectomy and PRODUCT DEVELOPMENT 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 Kalani Jacobo at the [facility] upon discharge (Located: [address] [place] [address], 18th floor, ) or i f patient has a [employer] Card/ has pending application they can follow up at [facility] ([address] [address] ) Sivan Laws MD Ophthalmology PGY2 [facility] Plan of Care No Data Provided for This Section Social History Social History Date Source Social History TypeResponse 09/08/2018 [facility] Substance Abuse Use: None. [...] entered on: 09/21/18 Social History TypeResponse 09/08/2018 [facility] Alcohol Current, Frequency: 1-2 times per year. [...]
--- OUTSIDE RECORDS SUMMARY | 2020-04-02 03:57 | XMS REPORT | Summary of Care ---
:1945 Author Organization [facility] Address [address] [place] [address]- Encounter HQ Marshallntr_sebastian(FIN) [id number] Date(s): 02/15/20 - 02/27/[address] Professional Services provided by [facility] [place] [address]- Discharge Disposition: [facility] Facility Attending Physician: Clovis Miguel MD Admitting [...] hyperglycemia(Confirmed) Diabetes type 2, Active uncontrolled(Confirmed) 1right [id number] Allergies, Adverse Reactions, Alerts Substance Reaction Severity Status penicillins1 rash Active ciprofloxacin Active erythromycin2 Active phenobarbital rash Active gabapentin3 Active aspirin4 severe chest pain Active immune globulin intravenous5 Act kimberly cefepime Active Cortizone-10 Active Adhesive Tape6 Active PHENobarbital7 Active 1Data migrated from [employer] on 01/22/15. Originally documented as PCN.2Data migrated from [employer] on 01/22/15. Originally documented as ERYTHROMYCIN.3 hqyrrqm1Asse migrated from [employer] on 01/22/15. Originally documented as ASPIRIN.5Husband called hospital on 12/06/19 and stated that the pt was allergic to IRCB1Xrdw migrated from [employer] on 08/01/15. Originally [...] Drug Form: TAB, Dosing Weight 84.545, kg, [id number], Start date: 02/22/20 20:00:00 CDT, Stop date: 02/28/20 8:00:00 CDT, 0 Start Date: 02/22/20 Stop Date: 02/27/20 Status: DiscontinuedBactrim DS 800 mg- 160 mg oral tablet 1 tab, PO, AAMI23N, 0 Refill(s) Start Date: 02/27/20 Stop Date: 02/27/20 Status: DeletedBactrim DS 800 mg- 160 mg oral tablet 1 tab, PO, [id number], X 1 day, # 2 tab, 0 [...] Start Date: 02/17/20 Stop Date: 02/27/20 Status: FmhjnuluwobqP-30-F 12.5 gm, 25 mL, Route: IVP, Drug Form: INJ, Dosing Weight 84.545, kg, PRN, PRN Blood Glucose Results, Start date: 02/21/20 20:57:00 CDT, Duration: 30 day, Stop date: 03/22/20 20:56:00 CDT, 0 Start Date: 02/21/20 Stop Date: 02/27/20 Status: YjzaalhtyxpiF-31-O 25 gm, 50 mL, Route: IVP, Drug [...] shake vigorously. WASTE:F/P - Black; E - [employer] Trash BinStable for 31 days at room [...] Patients with feedingtube less than 14 South Korean (Dobhoff, J-tube etc) and pediatric and patients. [...] II diabetes mellitus, HTN, HLD, CAD, hypothyroidism, JD, seropositive myasthenia gravis (an ti-striated muscle antibodie s), and recent spinal surgery around 3 weeks who presented as a direct transfer from [facility] due to concerns of MG exacerbation. Her [...] the resident, Dr. Doug Warner's, interpretation. CPT: 93778-LQ *NA* (02/17/20 12:10 PM) Phosphorus [2.5-4.5 3.3 [...] by the estimated BMI.4Result Comment: 02/17/2020 14:11 [id number] "Significant Findings of Positive Antibody Screen_ called [...] who presented as a direct transfer from [facility] due to concerns of MG exacerbation. She initially presented one week ago to [facility] wit h hypoglicemia and was found to have PNA. She completed antibiotics (Cefuroxime and Clynda per external Rx) and was discharged 5 days ago with PT. Per , t he next day of her discharged she sudden ly developed trouble standing due to lower extremity weakness, hypophonia and dysarthria. She didn't have any respiratory problems. She was brought back to [facility] where she was evaluated by Neurol pat and didn't think that it was a MG exacerbation so patient's family requested transfer to [facility]. At [facility] patient had MBST which showed severe dysphagia. Cu rrently, patient has no dysarthria but c ontinuos with hypophonia. She denies any SOB. Due to her dementia she is a poor historian but denies any weakness. Hospital course: 02/15: unable to obtain IV access, [facility] medicine consulted 02/16: plex day 06/05 02/17: [...] 160 mg oral tablet) 1 tab PO [id number] 02/17/20 thiamine 200 mg PO Daily Unscheduled [...] 5/5 strength in bilateral biceps/ triceps/deltoid, hand saddle cutter 5/5, AG in b/l lower extremities no [...] n respiratory function as well as hypophonia. GENERAL MATCHER MG Exacerbation - Weakness likely multifactorial 2/t [...] Code Dispo: SNF vs back to personal senior care /assisted living with home health PT/OT/FLOOR COVERING CONTRACTOR Marlen Parra MD PGY-2 | Neurology [facility] CPT: 23132 DX: G70.01 I have examined this patient with the re sident, Dr. Parra, and agree with the documentation and findings as recorded. I concur with the plan as outlined. Clovis Miguel MD Professor of Neurology Extracted from: Title: Consult Note Author: Akash Skaggs MD Date: 01/31 11/18 75-year-old female with a past medical h istory of dementia,and angioma status post resectionwith APPLIED PSYCHOLOGY TEACHER shunt, type 2 diabetes, hypertension, hyperlipidemia, CAD,chronic [...] r econsult as needed Dr. Akash Lamar (Noemi)[facility] Hospitalist Medicine Please contact me via [...] who presented as a direct transfer from [facility] due to concerns of MG exacerbation. She initially presented one week ago to [facility] with hypoglicemia and was found to have PNA. She completed antibiotics (Cefuroxime and Clynda per external Rx) and was discharged 5 days ago with PT. Per , th e next day of her discharged she suddenl y developed trouble standing due to lower extremity weakness, hypophonia and dysarthria. She didn't have any respiratory problems. She was brought back to [facility] where she was evaluated by Neurolo gy and didn't think that it was a MG exacerbation so patient's family requested transfer to [facility]. At [facility] patient had MBST which showed [...] 4/5 Tricep 4+/5 4+/5 Bicep 5/5 5/5 Local Company Flatbed Truck Driver 5/5 5/5 Iliopsoas 4/5 4/5 Quadricep 4/5 [...] so family would like to avoid IVIG. GENERAL MATCHER Possible MG Exacerbation - Admit to - posteriorly transferred to [facility] for observation - NIF, FVC q3-6 [...] Pending THE FOLLOWING WERE PRESENT ON ADMISSION: GENERAL MATCHER- Dementia Cardiovascular- HTN, HFrEF 50% Infectious- Leukocytosis [...] was updated about plan in the evening. GENERAL MATCHER MG Exacerbation - Monitor closely - NIF, FVC q3-6 hours - Continue home pyridostigmine 60mg q8H - Resume home prednisone 20mg daily - Incentive spirometery - Continue home CPAP at night Dysphagia - NPO per speech therapy - Pending MBS - Can give meds in puree/pudding per FLOOR COVERING CONTRACTOR PSYCH Depression Anxiety - Continue home sertraline [...] consult Marlen Parra MD PGY-2 | Neurology [facility] Neurology staff Teaching physician statement I reviewed the residents note, personall y reviewed all the patient s labs and imaging studies and personally performed a complete neurological exam. I discussed the assessment and plan of care and agr ee with the plan as outlined in the lyudmila law's note. David Macedo DO [facility], Neurohospitalist Hemodialysis Technician of Neurology
--- OUTSIDE RECORDS SUMMARY | 2020-04-02 03:57 | XMS REPORT | Summary of Care ---
:1945 Author Organization [facility] Outpatient Imaging [facility] Address [address] [place] [address]- Encounter HQ Marshallntr_sebastian(FIN) [id number] Date(s): 01/05/20 - 01/05/20 [facility] Outpatient Imaging [address] [address]- [phone] Discharge Disposition: Home or Self Care Attending [...] hyperglycemia(Confirmed) Diabetes type 2, Active uncontrolled(Confirmed) 1right gdd5kczybeob Allergies, Adverse Reactions, Alerts Substance Reaction Severity Status penicillins1 rash Active ciprofloxacin Active erythromycin2 Active phenobarbital rash Active gabapentin3 Active aspirin4 severe chest pain Active immune globulin intravenous5 Act kimberly cefepime Active Cortizone-10 Active Adhesive Tape6 Active PHENobarbital7 Active 1Data migrated from [employer] on 01/22/15. Originally documented as PCN.2Data migrated from [employer] on 01/22/15. Originally documented as ERYTHROMYCIN.3 [id number] migrated from [employer] on 01/22/15. Originally documented as ASPIRIN.5Husband called hospital on 12/06/19 and stated that the pt was allergic to WYSB2Otja migrated from [employer] on 08/01/15. Originally documented as ADHESIVE TAPE.7Data migrated from [employer] on 01/22/15. Originally documented as PHENOBARBITAL. Medications [...]
--- OUTSIDE RECORDS SUMMARY | 2020-04-02 03:57 | XMS REPORT | Summary of Care ---
:1945 Author Organization [facility] Address [address] [place] [address]- Encounter HQ Vish_sebastian(VIKKI) [id number] Date(s): 02/15/[address] Professional Services provided by [facility] [place] [address]- Attending Physician: David Macedo DO Admitting Physician: [...] hyperglycemia(Confirmed) Diabetes type 2, Active uncontrolled(Confirmed) 1right hmu0nwbcbgra Allergies, Adverse Reactions, Alerts Substance Reaction Severity Status penicillins1 rash Active ciprofloxacin Active erythromycin2 Active phenobarbital rash Active gabapentin3 Active aspirin4 severe chest pain Active immune globulin intravenous5 Act kimberly cefepime Active Cortizone-10 Active Adhesive Tape6 Active PHENobarbital7 Active 1Data migrated from [employer] on 01/22/15. Originally documented as PCN.2Data migrated from [employer] on 01/22/15. Originally documented as ERYTHROMYCIN.3 [id number] migrated from [employer] on 01/22/15. Originally documented as ASPIRIN.5Husband called hospital on 12/06/19 and stated that the pt was allergic to DDUU2Nxop migrated from [employer] on 08/01/15. Originally [...] contacting prescriberWASTE: F/P - Black; E - [employer] Trash Bin"single patient use only"Stable for 28 [...] exclude Patients with feedingtube less than 14 Syrian (Dobhoff, J-tube etc) and pediatric and patients. [...] by the estimated BMI.4Result Comment: 02/17/2020 14:11 [id number] "Significant Findings of Positive Antibody Screen_ called [...] who presented as a direct transfer from [facility] due to concerns of MG exacerbation. She initially presented one week ago to [facility] wit h hypoglicemia and was found to have PNA. She completed antibiotics (Cefuroxime and Clynda per external Rx) and was discharged 5 days ago with PT. Per , t he next day of her discharged she sudden ly developed trouble standing due to lower extremity weakness, hypophonia and dysarthria. She didn't have any respiratory problems. She was brought back to [facility] where she was evaluated by Neurol pat and didn't think that it was a MG exacerbation so patient's family requested transfer to [facility]. At [facility] patient had MBST which showed severe dysphagia. Cu rrently, patient has no dysarthria but c ontinuos with hypophonia. She denies any SOB. Due to her dementia she is a poor historian but denies any weakness. Hospital course: 02/15: [facility] to obtain IV [facility]16[facility] plex day 06/05 02/17: [...] at bedside and answered all his questions. CURATOR MEDICAL MUSEUM MG Exacerbation - Weakness likely multifactorial 2/t [...] IPR Marlen Parra MD PGY-2 | Neurology [facility] Neurology staff Teaching physician statement I reviewed [...] pain, will change dressing. David Macedo DO [facility], Neurohospitalist Patient Financial Services Manager of Neurology Extracted from: Title: Transfusion Medicine/Apheresis [...] who presented as a direct transfer from [facility] due to concerns of MG exacerbation. She initially presented one week ago to [facility] wit h hypoglycemia and was found to have PNA. She completed antibiotics (Cefuroxime and Clynda per external Rx) and was discharged 5 days ago with PT. Per , t he next day of her discharged she sudden ly developed trouble standing due to lower extremity weakness, hypophonia and dysarthria. She didn't have any respiratory problems. She was brought back to [facility] where she was evaluated by Neurol pat and didn't think that it was a MG exacerbation so patient's family requested transfer to [facility]. At [facility] patient had MBST which showed severe dysphagia. [...] from her wh o is the power utility appraiser. 2.A cycle of 5 TPE procedures is [...] Thanks for consultation. Mariajose Garsia MD ID# [id number] Extracted from: Title: General Neurology HPI Author: [...] who presented as a direct transfer from [facility] due to concerns of MG exacerbation. She initially presented one week ago to [facility] with hypoglicemia and was found to have PNA. She completed antibiotics (Cefuroxime and Clynda per external Rx) and was discharged 5 days ago with PT. Per , th e next day of her discharged she suddenl y developed trouble standing due to lower extremity weakness, hypophonia and dysarthria. She didn't have any respiratory problems. She was brought back to [facility] where she was evaluated by Neurolo gy and didn't think that it was a MG exacerbation so patient's family requested transfer to [facility]. At [facility] patient had MBST which showed severe dysphagia. [...] Tricep 4+/5 4+/5 Bicep 5/5 5/5 Director Medical 5/5 5/5 Iliopsoas 4/5 4/5 Quadricep 4/5 [...] so family would like to avoid IVIG. CURATOR MEDICAL MUSEUM Possible MG Exacerbation - Admit to - posteriorly transferred to [facility] for observation - NIF, FVC q3-6 hours [...] Pending THE FOLLOWING WERE PRESENT ON ADMISSION: CURATOR MEDICAL MUSEUM- Dementia Cardiovascular- HTN, HFrEF 50% Infectious- Leukocytosis [...] was updated about plan in the evening. CURATOR MEDICAL MUSEUM MG Exacerbation - Monitor closely - NIF, FVC q3-6 hours - Continue home pyridostigmine 60mg q8H - Resume home prednisone 20mg daily - Incentive spirometery - Continue home CPAP at night Dysphagia - NPO per speech therapy - Pending MBS - Can give meds in puree/pudding per ROTARY ADJUSTER PSYCH Depression Anxiety - Continue home sertraline [...] consult Marlen Parra MD PGY-2 | Neurology [facility] Neurology staff Teaching physician statement I reviewed the residents note, personall y reviewed all the patient s labs and imaging studies and personally performed a complete neurological exam. I discussed the assessment and plan of care and agr ee with the plan as outlined in the lyudmila law's note. David Macedo DO [facility], Neurohospitalist Patient Financial Services Manager of Neurology
[2020-04-02 04:19] LABS: Basophils % 1.2 % (0-1.3); Hematocrit 28.2 % (36.0-45.0); MPV 9.1 fL (7.6-11.3); RBC Red Blood Cell Count 3.79 M/uL (3.86-4.86)
--- OUTSIDE RECORDS SUMMARY | 2020-04-02 04:20 | XMS REPORT | Continuity of Care Document ---
:1945 Author Organization [facility] t Address [address] Tillman [address] [place] [id number] Care Team Providers Name Role Phone Ayush Scott Primary Care Physician NOELLE Attending Clinician Unavailable Giovani Miguel Attending Clinician Socorro Schafer MD Attending Clinician Stacia Reece MD Attending Clinician Bill Paez MD Attending Clinician Harley DANG Attending Clinician Donnell Macedo Attending Clinician SOCORRO SCHAFER Attending Clinician Unavailable Natasha Fernandez Attending Clinician Estella Calvin Attending Clinician Bobby Carrasco Attending [...] Expiration Date S starr AETNA - MEDICARE [id number] 2013 YELITZA Amanda ukes MGD CAREAETNA 00:00:00 - Medical MEDICARE HMO POS Center [id number] [facility] [address] CDC REVIEWCDC [id number] [facility] s [id number] 00:00:00 - Medica l 05/[place] [address] Problems Condition Condition Condition Status Onset Resolution Last Treating Co mments Source Name Details Category Date Date Treatment Clinician Date MYASTHENIA Diagnosis Active 2020-03-01 Memoria GRAVIS 02-14 21:46:00 l WITH ACUTE 00:00: Berto gomez EXACERBATI MYASTHENIA 00 O GRAVIS WITH ACUTE EXACERBATI O Active 02/15/2020 [facility] Myasthenia Myasthenia Disease Active C [facility] grav[facility] 02[facility]10 [facility] - with acute with acute 00:00: Me dical exacerbati exacerbati 00 Ce nter on on C-7,T-4 Diagnosis Active 2019-12-14 Me moria FX,ESOPHAG - 09:22:00 l EAL TEAR C-7,T-4 03:51: Gerda nn FX,ESOPHAG 00 EAL TEAR Active 11/21/2019 [facility] MYASTHENIA Diagnosis Active 2019-03-10 Memoria GRAVIS 02-05 22:12:00 l WEAKNESS 00:00: Jorge Alberto MYASTHENIA 00 GRAVIS WEAKNESS Active 02/05/2019 [facility] MYASTHENIA Diagnosis Active 2019-01-04 Memoria GRAVIS 12-24 08:31:00 l 00:00: Jorge Alberto MYASTHENIA 00 GRAVIS Active 12/24/2018 [facility] DIABETIC Diagnosis Active 2018-12-08 M emoria 7-01 05:43:00 l DIABETIC 00:00: Berto n 00 Active 11/29/2018 [facility] DYSPHAGIA Diagnosis Active 2018-09-30 Memoria 4-11 08:27:00 l 00:00: Jorge Alberto DYSPHAGIA 00 Active 09/09/2018 [facility] RESOLVED Diagnosis Active 2018-09-22 M emoria VISION 4-10 15:15:00 l LOSS IN RESOLVED 00:00: Gerda nn LEFT EYE VISION 00 LOSS IN LEFT EYE Active 09/08/2018 [facility] SLURRED Diagnosis Active 2018-08-26 Me moria SPEECH 3-18 22:20:00 l SLURRED 00:00: [place] SPEECH 00 Active 08/16/2018 [facility] STROKE Diagnosis Active 2018-08-16 Mem oria SYMPTOMS 3-18 20:18:00 l STROKE 00:00: [place] SYMPTOMS 00 Active 08/16/2018 [facility] Trigger Trigger Disease Active [facility] finger finger 9[facility]15 [facility] Benign Problem Active 2018-12-01 Memor ia neoplasm 1-14 21:28:18 l of Benign 00:00: [place] cerebral neoplasm 00 meninges of (disorder) cerebral meninges (disorder) Active 06/14/2012 Problem 12/01/2018 Data migrated from [facility] on 01/23/15. Julia Neuro,[facility], Natasha Acosta [facility] BAD Diagnosis Active 2010-062011-03-22 Mem oria REACTION 0-22 06:07:00 l TO BAD 00:00: [place] MEDICATION REACTION 00 TO MEDICATION Active 03/22/2011 [facility] DEHYDRATIO Diagnosis Active 2010-062011-03-27 Memoria N,PAIN 0-22 13:56:00 l CONTROL 00:00: [place] DEHYDRATIO 00 N,PAIN CONTROL Active 03/22/2011 [facility] LEG CRAMPS Diagnosis Active 2010-062011-03-14 Memoria 0- 04:56:00 l LEG 00:00: Jorge Alberto CRAMPS 00 Active 03/13/2011 [facility] DEHYDRATIO Diagnosis Active 2010-062011-03-17 Memoria N 0-13 12:08:00 l 00:00: Jorge Alberto DEHYDRATIO 00 N Active 03/13/2011 [facility] SDH Diagnosis Active 2011-03-20 Mem oria 02-24 21:57:00 l SDH 06:00: [place] 00 Active 02/24/2011 Rehabilita tion DM - Problem Active 2011-03-27 Memor ia Diabetes 02-18 08:54:23 l mellitus DM - 00:00: [place] Diabetes 00 mellitus Active 02/18/2011 Problem 03/27/2011 [facility] HYDROCEPHA Diagnosis Active 2011-03-05 Memoria TANJA 01-31 21:52:00 l 00:00: Jorge Alberto HYDROCEPHA 00 TANJA Active 01/31/2011 [facility] BRAIN MASS Diagnosis Active 2011-02-20 Memoria 01-30 14:11:00 l BRAIN 06:00: Jorge Alberto MASS 00 Active 01/30/2011 Rehabilita tion BRAIN Diagnosis Active 2011-02-04 Mem oria MASS/AWAKE 01-23 11:31:00 l BRAIN 00:00: [place] MASS/AWAKE 00 Active 01/23/2011 [facility] LIFE Diagnosis Active 2011-02-20 Mem oria FLIGHT 01-23 14:11:00 l LIFE 00:00: [place] FLIGHT 00 Active 01/23/2011 [facility] Increased Increased Problem Active Uni vers Pressure [...] d Illness, Berto n unspecifie d 09/11/2018 [facility] Myasthenia Problem 2019-12-26 M emoria gravis 07:49:25 l without Jorge Alberto (acute) Myasthenia exacerbati gravis on without (acute) exacerbati on 12/26/2019 [facility] 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:49:25 l syndrome Central Gerda nn at C7 cord level of syndrome cervical at C7 spinal level of cord, cervical initial spinal encounter cord, initial encounter 12/26/2019 [facility] Unspecifie Problem 2019-12-26 M emoria d fracture 07:49:25 l of fourth [place] thoracic Unspecifie vertebra, d fracture initial of fourth encounter thoracic for closed vertebra, fracture initial encounter for closed fracture 12/26/2019 [facility] Contusion Problem 2019-12-26 Me moria of other 07:49:25 l specified Jorge Alberto intrathora Contusion cic of other organs, specified initial intrathora encounter cic organs, initial encounter 12/26/2019 [facility] Unspecifie Problem 2019-12-26 M emoria d fracture 07:49:25 l of second [place] lumbar Unspecifie vertebra, d fracture initial of second encounter lumbar for closed vertebra, fracture initial encounter for closed fracture 12/26/2019 [facility] Chronic Problem 2019-12-26 Kalia aida systolic 07:49:25 l (congestiv Chronic Her restrepo e) heart systolic failure (congestiv e) heart failure 12/26/2019 [facility] Delirium Problem 2019-12-26 Mem oria due to 07:49:25 l known Delirium Berto n physiologi due to roger known condition physiologi roger condition 12/26/2019 [facility] Acute Problem 2019-12-26 Memor ia posthemorr 07:49:25 l hagic Acute [place] anemia posthemorr hagic anemia 12/26/2019 [facility] Hydrocepha Problem 2019-12-26 M emoria tanja, 07:49:25 l unspecifie Berto n d Hydrocepha tanja, unspecifie d 12/26/2019 [facility] Unspecifie Problem 2019-12-26 M emoria d 07:49:25 l protein-ca Berto n bry Unspecifie malnutriti d on protein-ca bry malnutriti on 12/26/2019 [facility] Body mass Problem 2019-12-26 Me moria index 07:49:25 l (BMI) Body Jorge Alberto 40.0-44.9, mass index adult (BMI) 40.0-44.9, adult 12/26/2019 [facility] Ventricula Problem 2019-12-26 emoria r 07:49:25 l tachycardi Berto n a Ventricula r tachycardi a 12/26/2019 [facility] Alkalosis Problem 2019-12-26 Ky moria 07:49:25 l [place] Alkalosis 12/26/2019 [facility] Encephalop Problem 2019-12-26 M emoria athy, 07:49:25 l unspecifie Berto n d Encephalop athy, unspecifie d 12/26/2019 [facility] Gastrointe Problem 2019-12-26 M emoria stinal 07:49:25 l hemorrhage Berto n , Gastrointe unspecifie stinal d hemorrhage , unspecifie d 12/26/2019 [facility] Unspecifie Problem 2019-12-26 M emoria d 07:49:25 l displaced Jorge Alberto fracture Unspecifie of sixth d cervical displaced vertebra, fracture initial of sixth encounter cervical for closed vertebra, fracture initial encounter for closed fracture 12/26/2019 [facility] Unspecifie Problem 2019-12-26 M emoria d 07:49:25 l displaced [place] fracture Unspecifie of seventh d cervical displaced vertebra, fracture initial of seventh encounter cervical for closed vertebra, fracture initial encounter for closed fracture 12/26/2019 [facility] Unspecifie Problem 2019-12-26 M emoria d 07:49:25 l displaced Jorge Alberto fracture Unspecifie of fourth d cervical displaced vertebra, fracture initial of fourth encounter cervical for closed vertebra, fracture initial encounter for closed fracture 12/26/2019 [facility] Hypothyroi Problem 2019-12-26 M emoria dism, 07:49:25 l unspecifie Berto n d Hypothyroi dism, unspecifie d 12/26/2019 [facility] Old Problem 2019-12-26 Memor ia myocardial 07:49:25 l infarction Old Berto n myocardial infarction 12/26/2019 [facility] Age-relate Problem 2019-12-26 M emoria d 07:49:25 l osteoporos Berto n is without Age-relate current d pathologic osteoporos al is without fracture current pathologic al fracture 12/26/2019 [facility] Hypertensi Problem 2019-12-26 M emoria ve heart 07:49:25 l disease Jorge Alberto with heart Hypertensi failure ve heart disease with heart failure 12/26/2019 [facility] Dysphagia, Problem 2019-12-26 M emoria unspecifie 07:49:25 l d Jorge Alberto Dysphagia, unspecifie d 12/26/2019 [facility] Atheroscle Problem 2019-12-26 M emoria rotic 07:49:25 l heart Jorge Alberto disease of Atheroscle [place] rotic coronary heart artery disease of without [place] angina coronary pectoris artery without angina pectoris 12/26/2019 [facility] Physical Problem 2019-12-26 Mem oria restraint 07:49:25 l status Physical Berto n restraint status 12/26/2019 [facility] Unspecifie Problem 2019-12-26 M emoria d dementia 07:49:25 l without Jorge Alberto behavioral Unspecifie disturbanc d dementia e without behavioral disturbanc e 12/26/2019 [facility] medical terminologist Problem 2019-12-26 Me moria (current) 07:49:25 l use of Long [place] systemic term steroids (current) use of systemic steroids 12/26/2019 [facility] Hypokalemi Problem 2019-12-26 emoria a 07:49:25 l [place] Hypokalemi a 12/26/2019 [facility] Obstructiv Problem 2019-12-26 M emoria e sleep 07:49:25 l apnea Jorge Alberto (adult) Obstructiv (pediatric e sleep ) apnea (adult) (pediatric ) 12/26/2019 [facility] Other Problem 2019-12-26 Memor ia disorders 07:49:25 l of Other [place] phosphorus disorders metabolism of phosphorus metabolism 12/26/2019 [facility] Constipati Problem 2019-12-26 M emoria on, 07:49:25 l unspecifie Berto n d Constipati on, unspecifie d 12/26/2019 [facility] Fall on Problem 2019-12-26 Kalia aida same level 07:49:25 l from Fall on Jorge Alberto slipping, same level tripping from and slipping, stumbling tripping without and subsequent stumbling striking without against subsequent object, striking initial against encounter object, initial encounter 12/26/2019 [facility] Other Problem 2019-12-26 Memor ia acute 07:49:25 l postproced Other Gerda nn ural pain acute postproced ural pain 12/26/2019 [facility] Acute pain Problem 2019-12-26 M emoria due to 07:49:25 l trauma Acute [place] pain due to trauma 12/26/2019 [facility] Major Problem 2019-12-26 Memor ia depressive 07:49:25 l disorder, Major Berto n single depressive episode, disorder, unspecifie single d episode, unspecifie d 12/26/2019 [facility] Abrasion Problem 2019-12-26 Mem oria of right 07:49:25 l upper arm, Abrasion He rmann initial of right encounter upper arm, initial encounter 12/26/2019 [facility] Type 2 Problem 2019-12-26 Memor ia diabetes 07:49:25 l mellitus Type 2 Berto n with diabetes hyperglyce mellitus saloni with hyperglyce saloni 12/26/2019 [facility] Morbid Problem 2019-12-26 Memor ia (severe) 07:49:25 l obesity Morbid Jorge Alberto due to (severe) excess obesity calories due to excess calories 12/26/2019 [facility] Type 2 Problem 2019-12-26 Memor ia diabetes 07:49:25 l mellitus Type 2 Berto n with diabetes hypoglycem mellitus ia without with coma hypoglycem ia without coma 0 [facility] Hyperlipid Problem 2019-12-26 M emoria emia, 07:49:25 l unspecifie Berto n d Hyperlipid emia, unspecifie d 12/26/2019 [facility] Chronic Problem 2019-12-26 Kalia aida obstructiv 07:49:25 l e Chronic Jorge Alberto pulmonary obstructiv disease, e unspecifie pulmonary d disease, unspecifie d 12/26/2019 [facility] Hypomagnes Problem 2019-12-26 M emoria emia 07:49:25 l [place] Hypomagnes emia 0 [facility] Unqualifie Problem 2019-12-26 M emoria d visual 07:49:25 l loss, [place] right eye, Unqualifie normal d visual vision loss, left eye right eye, normal vision left eye 12/26/2019 [facility] Atheroscle Problem 2019-12-26 M emoria rosis of 07:49:25 l aorta [place] Atheroscle rosis of aorta 12/26/2019 [facility] Spinal Problem 2019-12-26 Memor ia stenosis, 07:49:25 l cervical Spinal Berto n region stenosis, cervical region 12/26/2019 [facility] Repeated Problem 2019-12-26 Mem oria falls 07:49:25 l Repeated Berto n falls 12/26/2019 [facility] Laceration Problem 2019-12-26 M emoria without 07:49:25 l foreign [place] body of Laceration right without forearm, foreign initial body of encounter right forearm, initial encounter 12/26/2019 [facility] Presence Problem 2019-12-26 Mem oria of 07:49:25 l cerebrospi Presence He rmann nal fluid of drainage cerebrospi device nal fluid drainage device 12/26/2019 [facility] Personal Problem 2019-12-26 Mem oria history of 07:49:25 l sudden Personal Berto n cardiac history of arrest sudden cardiac arrest 12/26/2019 [facility] History of Problem 2019-12-26 M emoria falling 07:49:25 l History [place] of falling 12/26/2019 [facility] Family Problem 2019-12-26 Memor ia history of 07:49:25 l diabetes Family Berto n mellitus history of diabetes mellitus 12/26/2019 [facility] Personal Problem 2019-12-26 Mem oria history of 07:49:25 l benign Personal Berto n neoplasm history of of the benign brain neoplasm of the brain 12/26/2019 [facility] Other long Problem 2019-12-26 M emoria term 07:49:25 l (current) Other Berto n drug long term care social worker therapy (current) drug therapy 12/26/2019 [facility] Lethargic Problem Inactiv 2011-03-27 M emoria e 08:54:23 l [place] Lethargic Inactive Problem 03/27/2011 [facility] Blindness Problem Resolve 2020-02-29 M emoria of one eye d 21:43:44 l (disorder) Berto n Blindness of one eye (disorder) Resolved Problem 02/29/2020 right eye [facility], DOMONIQUE Azul, DOMONIQUE Kelly,[facility] Diabetes Problem Resolve 2020-02-29 Me moria mellitus d 21:43:44 l (disorder) Diabetes He rmann mellitus (disorder) Resolved Problem 02/29/2020 [facility], DOMONIQUE Azul, DOMONIQUE Kelly,[facility] Heart Problem Resolve 2020-02-29 Kalia aida failure d 21:43:44 l (disorder) Heart Gerda nn failure (disorder) Resolved Problem 02/29/2020 systilic [facility], DOMONIQUE Azul, DOMONIQUE Kelly,[facility] Morbid Problem Resolve 2020-02-29 Kalia aida obesity d 21:43:44 l (disorder) Morbid Herm mercy obesity (disorder) Resolved Problem 02/29/2020 [facility], DOMONIQUE Azul, DOMONIQUE Kelly,[facility] Obstructiv Problem Resolve 2020-02-29 Memoria e sleep d 21:43:44 l apnea Jorge Alberto syndrome Obstructiv (disorder) e sleep apnea syndrome (disorder) Resolved Problem 02/29/2020 [facility], DOMONIQUE Azul, DOMONIQUE Kelly,[facility] Myasthenic Problem Resolve 2020-02-29 Memoria crisis d 21:43:44 l (disorder) Berto n Myasthenic crisis (disorder) Resolved Problem 02/29/2020 [facility], DOMONIQUE Azul Diabetes Problem Resolve 2020-02-29 Me moria mellitus d 21:43:44 l type 2 Diabetes Berto n (disorder) mellitus type 2 (disorder) Resolved Problem 02/29/2020 [facility], DOMONIQUE Azul Altered Problem Active 2018-12-01 Kalia aida mental 21:28:18 l status Altered Jorge Alberto (finding) mental status (finding) Active Problem 12/01/2018 [facility] Coronary Problem Active 2020-02-29 Mem oria arterioscl 21:43:44 l erosis Coronary Berto n (disorder) arterioscl erosis (disorder) Active Problem 02/29/2020 [facility], DOMONIQUE Azul,[facility] Leticia,[facility] Craniotomy Problem Active 2018-12-01 M emoria (procedure 21:28:18 l ) Jorge Alberto Craniotomy (procedure ) Active Problem 12/01/2018 [facility] Pound,[facility] Hypertensi Problem Active 2020-02-29 M emoria ve 21:43:44 l disorder, Jorge Alberto systemic Hypertensi arterial ve (disorder) disorder, systemic arterial (disorder) Active Problem 02/29/2020 [facility], DOMONIQUE Azul,[facility] Leticia,[facility] Hypothyroi Problem Active 2020-02-29 M emoria dism 21:43:44 l (disorder) Berto n Hypothyroi dism (disorder) Active Problem 02/29/2020 [facility], DOMONIQUE Azul,[facility] Leticia,[facility] Itching Problem Active 2018-12-01 Kalia aida (finding) 21:28:18 l Itching [place] (finding) Active Problem 12/01/2018 [facility] Intracrani Problem Active 2018-12-01 M emoria al 21:28:18 l meningioma Berto n (disorder) Intracrani al meningioma (disorder) Active Problem 12/01/2018 [facility] Pain Problem Active 2018-12-01 Memor ia (finding) 21:28:18 l Pain Jorge Alberto (finding) Active Problem 12/01/2018 [facility], DOMONIQUE Kelly,[facility] Visual Problem Active 2018-12-01 Memor ia disturbanc 21:28:18 l e Visual [place] (disorder) disturbanc e (disorder) Active Problem 12/01/2018 [facility] DOMONIQUE Kelly,[facility] Body mass Problem Active 2020-02-29 Me moria index 40+ 21:43:44 l - severely Body Berto n obese mass index (finding) 40+ - severely obese (finding) Active Problem 02/29/2020 [facility] OPID [place] Myasthenia Problem Active 2020-02-29 M emoria gravis 21:43:44 l (disorder) Berto n Myasthenia gravis (disorder) Active Problem 02/29/2020 [facility] OPID Jorge Alberto Recurrent Problem Active 2020-02-29 Me moria falls 21:43:44 l (finding) [place] Recurrent falls (finding) Active Problem 02/29/2020 [facility] OPID [place] Type II Problem Active 2020-02-29 Kalia aida diabetes 21:43:44 l mellitus Type II Gerda nn uncontroll diabetes ed mellitus (finding) uncontroll ed (finding) Active Problem 02/29/2020 [facility] OPID [place] Altered Problem Active 2011-03-27 Kalia aida mental 08:54:23 l status Altered [place] mental status Active Problem 03/27/2011 [facility] Craniotomy Problem Active 2011-03-27 M emoria 08:54:23 l [place] Craniotomy Active Problem 03/27/2011 [facility] HTN - Problem Active 2011-03-27 Memor ia Hypertensi 08:54:23 l on HTN - Jorge Alberto Hypertensi on Active Problem 1 [facility] Meningioma Problem Active 2011-03-27 M emoria of brain 08:54:23 l [place] Meningioma of brain Active Problem 03/27/2011 [facility] Visual Problem Active 2011-03-27 Memor ia disturbanc 08:54:23 l e Visual [place] disturbanc e Active Problem 03/27/2011 [facility] Itching Problem Active 2011-03-27 Kalia aida 08:54:23 l Itching [place] Active Problem 03/27/2011 [facility] Pain Problem Active 2011-03-27 Memor ia 08:54:23 l Pain [place] Active Problem 03/27/2011 [facility] BRAIN Diagnosis Active 2011-02-20 Mem oria NEOPLASM 14:11:00 l NOS BRAIN [place] NEOPLASM NOS Active Rehabilita tion ADMINISTRT Diagnosis Active 2011-02-04 Memoria VE ENCOUNT 11:31:00 l NOS [place] ADMINISTRT VE ENCOUNT NOS Active [facility] COMMUNICAT Diagnosis Active 2011-03-05 Memoria HYDROCEPHA 21:52:00 l TANJA Jorge Alberto COMMUNICAT HYDROCEPHA TANJA Active [facility] SUBDURAL Diagnosis Active 2011-03-20 M emoria HEMORRHAGE 21:57:00 l SUBDURAL Berto n HEMORRHAGE Active Rehabilita tion DEHYDRATIO Diagnosis Active 2011-03-27 Memoria N 13:56:00 l [place] DEHYDRATIO N Active [facility] MYASTHENIA Diagnosis Active 2018-09-30 Memoria GRAVIS 22:26:00 l WITHOUT Jorge Alberto (ACUTE) MYASTHENIA EXACER GRAVIS WITHOUT (ACUTE) EXACER Active [facility] ILLNESS, Diagnosis Active 2018-09-08 M emoria UNSPECIFIE 11:41:00 l D ILLNESS, Berto n UNSPECIFIE D Active [facility] OCULAR Diagnosis Active 2018-09-22 Mem oria PAIN, 15:15:00 l RIGHT EYE OCULAR Gerda nn PAIN, RIGHT EYE Active [facility] UNQUALIFIE Diagnosis Active 2018-09-22 Memoria D VISUAL 15:15:00 l LOSS, LEFT Berto n EYE, ALEXIA UNQUALIFIE D VISUAL LOSS, LEFT EYE, ALEXIA Active [facility] [facility] [place] [facility] DISP Diagnosis Active 2019-12-14 Memoria FX OF 09:22:00 l [facility] Jorge Alberto CERVICAL DISP FX OF [place] [facility] CERVICAL [place] Active [facility] Allergies, Adverse Reactions, Alerts Allergy Allergy Status Severity Reaction(s) Onset Inactive Treating Comm ents Source Name Type Date Date Clinician Gabapent Drug Active Rash [facility] Allergy 02-11 [facility] - 00:00: Medical 00 [place] Other Propensi Active Other (See IVIG [facility] ty to Comments) 02-10 [facility] adverse [facility]: [facility] Medical reaction 00 blisters Center s b/l legs Penicill Drug Active Rash [facility] ins Allergy 02-13 [facility] Medical 00 [place] Salicyla Drug Active Rash [facility] ramakrishna Allergy 02-10 [facility] - [facility] Medical 00 [place] Ciproflo Drug Active Anaphylaxis [facility] xacin [...] Univers TABS to drug ity of (finding [place] ) Physici ans Cefepime Allergy Active Univers HCl SOLN to drug ity of (finding [place] ) Physici ans Erythrom Allergy Active Univers ycin to drug ity of Derivati (finding [place] ves ) Physici ans Penicill Allergy Active Univers ins to drug ity of (finding [place] ) Physici ans PHENobar Allergy Active Univers bital to drug ity of TABS (finding [place] ) Physici ans Cortizon Allergy Active Univers e-10 to drug ity of (finding [place] ) Physici ans ciproflo ciproflo Active Memori a xacin xacin l Jorge Alberto heparin heparin Active Severe Memoria l [place] phenobar phenobar Active Memori a bital bital l [place] cefepime cefepime Active Memori a l [place] Cortizon Cortizon Active Memori a e-10 e-10 l Jorge Alberto aspirin aspirin Active Memoria l [place] erythrom erythrom Active Memori a ycin ycin l [place] penicill penicill Active Memori a ins ins l Jorge Alberto Silk Silk Active Memoria Tape Tape l [place] gabapent gabapent Active Memori a in<sup>3 in<sup>3 l </sup> </sup> [place] immune immune Active Memoria globulin globulin l intraven intraven Berto n ous<sup> ous<sup> 5</sup> 5</sup> Social History Social Habit Start Date Stop Date Quantity Comments Source Sex Assigned At [facility] Social History 2018-08-17 2018-08-17 [facility] 08:45:08 08:45:08 Tobacco use and 2017-02-25 2017-02-25 Never used [facility] - exposure 00:00:00 00:00:00 [facility] Alcohol intake 2017-02-25 2017-02-25 Current [facility] - 00:00:00 00:00:00 non-drinker of Medical Ce nter alcohol (finding) Smoking Status Start Date Stop Date Source Never smoker [facility] Medications Ordered Filled Start Stop Current Ordering Indication Dosage Frequency Signature Comments Components Source Medication Medication Date Date Medication? Clinician (SIG) Name Name azaTHIOprin azaTHIOprin 2019-06 Yes SUUR Take 1 tab Univers e 50 MG e 50 MG 0-27 BILICILER QDAY x 1 ity of Oral Tablet Oral Tablet 00:00: M.D. wk, then 00 increase Physici to 1 tab ans BID. lansoprazol 2020-0 Yes 30 mg = 10 Memoria e 3 mg/mL 02-26 mL, PO, l oral 15:50: BID-Before Jorge Alberto suspension 00 Meals, # 600 mL, 0 Refill(s) pregabalin 2020-0 Yes 25 mg = 1 Me moria 25 mg oral 02-26 cap, PO, l capsule 15:45: Q8H-01, 0 Gerda nn 00 Refill(s) Sulfamethox 2020-0 No 1 tab, PO, Memoria azole 800 9- [id number], X l MG / 15:45: 1 day, # 2 [place] Trimethopri 00 tab, 0 m 160 MG Refill(s) Oral Tablet [Bactrim] predniSONE 2020-0 Yes 20 mg = 1 Me moria 20 mg oral 02-26 tab, PO, l tablet 15:45: Daily, X [place] 00 21 day, # 21 tab, 0 Refill(s) Insulin 2020-0 Yes 20 unit, Memori a Glargine 02-26 SUB-Q, l 100 UNT/ML 15:45: BID, # 10 He r[place] Injectable 00 mL, 0 Solution Refill(s) lisinopril 2020- Yes 5 mg = 1 Mem oria 5 mg oral 02-26 tab, GT, l tablet 15:17: Daily, 0 [place] 00 Refill(s) Sulfamethox 2019-0 No 1 tab, PO, Memoria azole 800 02-26 [id number], 0 l MG / 15:17: Refill(s) [place] Trimethopri 00 m 160 MG Oral Tablet [Bactrim] Insulin 2019- No 15 unit, Memori a Glargine 02-26 SUB-Q, l 100 UNT/ML 15:17: BID, 0 Gerda nn Injectable 00 Refill(s) Solution thiamine 2019- Yes 200 mg = 2 Mem oria 100 mg oral 02-26 tab, PO, l tablet 15:17: Daily, 0 Jorge Alberto 00 Refill(s) rosuvastati 2019- Yes 10 mg = 1 M emoria n 10 mg 02-26 tab, PO, l oral tablet 15:17: Bedtime, 0 Jorge Alberto 00 Refill(s) predniSONE No 20 mg = 1 Me moria 20 mg oral 02-26 tab, PO, l tablet 15:17: Daily, 0 [place] 00 Refill(s) Calcium 2019- No 500 mL, Memoria Chloride 02-26 500 ml/hr, l 0.0014 12:19: Infuse Jorge Alberto MEQ/ML / 00 Over: 1 Potassium hr, Route: Chloride IV, 500, 0.004 Drug form: MEQ/ML / INJ, ONCE, Sodium Priority: Chloride STAT, 0.103 Dosing MEQ/ML / Weight Sodium 84.545 kg, Lactate Start 0.028 date: MEQ/ML 02/27/20 Injectable 7:19:00 Solution CDT, Stop date: 02/27/20 7:19:00 CDT, 0 heparin 2019-0 No Notes: Memoria 02-25 porcine l 02:00: heparin [place] 00 heparin 2019-0 Yes Route: Memoria 02-24 MISC, Drug l [...] 9:32:00 CDT, Indication : Plasmapher esis Calcium 2019-0 No 2.5 gm, Memoria Gluconate 02-24 Route: IV, l 14:32: ONCE, Dosing Weight 84.545, kg, Start date: 02/25/20 9:32:00 CDT, Stop date: 02/25/20 9:32:00 CDT Calcium 2019-0 No Notes: Memoria Gluconate 02-22 WASTE: F/P l 14:30: - Sink; E Jorge Alberto - [facility] Trash Bin albumin 2019-0 No Notes: Memoria human 5% 02-22 LOT#: l intravenous 14:08: Jorge Alberto solution ___Mfg:___ ___ (Same as: Albuminar) "blood product derivative " WASTE: F/P - Red; E -Red MEDICATION WASTE Product Size: 25 gm Product Wasted: _0__ gm Sulfamethox 2019-0 No 1 tab, Kalia aida azole 800 02-22 Route: PO, l MG / 01:00: Drug Form: Jorge Alberto Trimethopri 00 TAB, m 160 MG Dosing Oral Tablet Weight [Bactrim] 84.545, kg, [id number], Start date: 02/22/20 20:00:00 CDT, Stop date: 02/28/20 8:00:00 CDT, 0 insulin 2020-0 No 30 unit, Memori a glargine 02-21 Route: l 14:00: SUB-Q, Drug form: SOLN, BID, Start date: 02/22/20 9:00:00 CDT, Duration: 30 day, Stop date: 03/22/20 17:00:00 CDT, 0 Lactated 2020-0 No 1,000 mL, Kalia aida Ringers IV 02-21 Rate: 100 l 1,000 mL 12:37: ml/hr, Infuse over: 10 hr, Route: IV, Dosing Weight 84.545 kg, Total Volume: 1,000, Start date: 02/22/20 7:37:00 CDT, Duration: 30 day, Stop date: 03/23/20 7:36:00 CDT, 1.91, m2, 0 Insulin 2020-0 No Notes: Memoria Lispro 02-21 (Same as: l 12:30: Humalog) Roll in [...] CDT D-50-W 2020-0 No 12.5 gm, Memoria 02-21 25 mL, l 01:57: Route: Jorge Alberto IVP, Drug Form: INJ, Dosing Weight 84.545, kg, PRN, PRN Blood Glucose Results, Start date: 02/21/20 20:57:00 CDT, Duration: 30 day, Stop date: 03/22/20 20:56:00 CDT, 0 Glucagon 2019-0 No 1 mg, Memoria 02-21 Route: IM, l 01:57: Drug form: [place] PDR/INJ, PRN, Dosing Weight 84.545, kg, PRN Blood Glucose Results, Start date: 02/21/20 20:57:00 CDT, Duration: 30 day, Stop date: 10/22/20 20:56:00 CDT, 0 Insulin No Notes: Memoria Lispro 02-21 (Same as: l 01:57: Humalog) Jorge Alberto 00 Roll in palms of hands gently; Do not shake vigorously . WASTE: F/P - Black; E - Municipal Trash Bin Stable for 28 days at room temperatur e. Expires in days from ____Date Insulin No Notes: Memoria regular 02-20 (Same as: l 22:46: Humulin R) Jorge Alberto 00 Roll in palms of hands gently; Do not shake vigorously . WASTE: F/P - Black; E - Municipal Trash Bin Stable for 31 days at room temperatur e Expires in days from ____Date Insulin No Notes: Memoria regular 02-20 (Same as: l 21:11: Humulin R) Jorge Alberto 00 Roll in palms of hands gently; Do not shake vigorously . WASTE: F/P - Black; E - Municipal Trash Bin Stable for 31 days at room temperatur e Expires in days from ____Date albumin No Notes: Feli human 5% 02-20 LOT#: l intravenous 16:23: [place] solution 00 ___Mfg:___ ___ (Same as: Albuminar) "blood product derivative " WASTE: F/P - Red; E -Red MEDICATION WASTE Product Size: 25 gm Product Wasted: _0__ gm Calcium No Notes: Memoria Gluconate 02-20 WASTE: F/P l 12:00: - Sink; E [place] 00 - Municipal Trash Bin albumin No Notes: Soyoria human 5% 02-20 LOT#: l intravenous 11:45: Jorge Alberto solution 00 ___Mfg:___ ___ (Same as: Albuminar) "blood product derivative " WASTE: F/P - Red; E -Red MEDICATION WASTE Product Size: 25 gm Product Wasted: ___ gm Lyrica No Notes: Memoria 02-19 (Same as: l 15:07: Lyrica) [place] Os-Roger 500 No Notes: Memor ia 02-19 500mg l 15:00: elemental Jorge Alberto 00 calcium = 1250mg calcium carbonate. Contains 500mg elemental calcium. (Same As: OsCal 500) Calcium No 2 tab, Memoria Gluconate 02-19 Route: PO, l 650 MG Oral 12:03: ONCE, Egrda nn Tablet Dosing Weight 84.545, kg, Start date: 02/20/20 7:03:00 CDT, Stop date: 02/20/20 7:03:00 CDT remove No 1 patch, Memoria patch 02-19 Route: l 02:00: TOP, Jorge Alberto Bedtime, Drug form: ERFILM, Start date: 02/19/20 21:00:00 CDT, Duration: 30 day, Stop date: 03/19/20 21:00:00 CDT, 0 albumin No Notes: Memoria human 5% 02-18 LOT#: l intravenous 17:05: Jorge Alberto solution ___Mfg:___ ___ (Same as: Albuminar) "blood product derivative " WASTE: F/P - Red; E -Red MEDICATION WASTE Product Size: 25 gm Product Wasted: _0__ gm Diphenhydra No 50 mg, Kalia aida mine 02-18 Route: l 17:00: IVP, ONCE, [place] Dosing Weight 84.545, kg, Start date: 02/19/20 12:00:00 CDT, Stop date: 02/19/20 12:00:00 CDT Calcium No Notes: Memoria Gluconate 02-18 WASTE: F/P l 15:00: - Sink; E [place] - Municipal Trash Bin albumin No Notes: Memoria human 5% 02-18 LOT#: l intravenous 14:39: Jorge Alberto solution 00 ___Mfg:___ ___ (Same [...] Stop date: 03/19/20 9:00:00 CDT, 0 rosuvastati 2019-0 No Notes: Kalia aida n 02-18 (Same As: l 02:00: Crestor) Insulin 2019-0 No Notes: Memoria regular 02-18 (Same as: l 01:08: Humulin R) Roll in palms of hands gently; Do not shake vigorously . WASTE: F/P - Black; E - Municipal Trash Bin Stable for 31 days at room temperatur e Expires in days from ____Date insulin 2020-0 No 20 unit, Memori a glargine 02-17 0.2 mL, l 22:00: Route: [place] SUB-Q, Drug form: SOLN, BID, Start date: 02/18/20 17:00:00 CDT, Duration: 30 day, Stop date: 03/19/20 9:00:00 CDT, 0 insulin 2020-0 No 15 unit, Memori a detemir 02-17 Route: l 21:06: SUB-Q, [place] BID, Dosing Weight 84.545, kg, Start date: 02/18/20 16:06:00 CDT, Duration: 30 day, Stop date: 03/19/20 9:00:00 CDT Dextrose 2019-0 No 12.5 gm, Memor ia 50% Syringe 02-17 25 mL, l (D50W) 21:05: Route: IVP, Drug Form: INJ, Dosing Weight [...] . WASTE: F/P - Black; E - Variable Trash Bin Stable for 31 days at [...] (Same as: l mEq oral 10:45: K-Dur 20) Herm mercy tablet, 00 "Do Not extended Crush" release Give with (KCL) food and full glass of water For patients unable to swallow tablet, dissolve in one half glass of water. Allow about 2 minutes for the tablets to disintegra te. Stir before giving to prepare slurry and administer . Please exclude Patient s with feeding tube less than 14 Indian (Dobhoff, J-tube etc) and pediatric and patients. Tylenol No Notes: Do Memor ia 02-16 not exceed l 22:08: 4 gm/day. [place] 00 (Same as: Tylenol) Calcium No Notes: Memoria Gluconate 02-16 WASTE: F/P l 22:00: - Sink; E [place] - Municipal Trash Bin albumin No Notes: Memoria human 5% 02-16 LOT#: l intravenous 21:47: [place] solution 00 ___Mfg:___ ___ (Same as: Albuminar) "blood product derivative " WASTE: F/P - Red; E -Red MEDICATION WASTE Product Size: 25 gm Product Wasted: ___ gm Pyridostigm No 90 mg, Kalia aida ine 02-16 Route: GT, l 21:00: Drug form: Jorge Alberto TAB, Q8H, Dosing Weight 84.545, kg, Start date: 02/17/20 16:00:00 CDT, Duration: 30 day, Stop date: 03/18/20 8:00:00 CDT, 0 Mestinon 2019-0 No Notes: Memoria -18 (Same as: l 21:00: Mestinon) Jorge Alberto 00 pyridostigm 2019-0 No Notes: Kalia aida ine 02-16 (Same as: l 21:00: Mestinon) Jorge Alberto 00 30 mg = 1/2 x 60 mg TAB clonazePAM No Notes: Memor ia 02-16 (Same as l 18:45: KlonoPIN [place] ODT) Hazardous Drug Group 3:Reproduc tive risk Hazardous Drug -- Refer to safe handling procedure PPE Matrix Clonazepam No Notes: Memor ia 02-16 (Same as l 17:27: KlonoPIN [place] 00 ODT) Hazardous Drug Group 3:Reproduc tive risk Hazardous Drug -- Refer to safe handling procedure PPE Matrix Furosemide No Notes: Memor ia 20 MG Oral 9-18 (Same as: l Tablet 14:00: Lasix) May cause GI upset. Give with food or milk. Lisinopril No Notes: Memor ia 9-18 (Same as: l 14:00: Prinivil, Zestril) Sertraline No Notes: Memor ia 9-18 (Same as: l 14:00: Zoloft) Prednisone No Notes: Memor ia 9-18 Take with l 14:00: food. Thiamine No Notes: Memoria 9-18 (Same As: l 14:00: Vitamin B1) Thyroxine No Notes: Memori a 9-18 Take 1 l 11:30: hour before or 2 hours after meal; Enteral feeds may interefere with the absorption of this medication . (Same as:Synthro id) Dextrose No 12.5 gm, Memor ia 50% Syringe 9-18 25 mL, l (D50W) 05:59: Route: IVP, Drug Form: INJ, Dosing Weight 84.545, kg, PRN, PRN Blood Glucose Results, Start date: 02/17/20 0:59:00 CDT, Duration: 30 day, Stop date: 03/18/20 0:58:00 CDT, 0 Glucagon No 1 mg, Memoria -18 Route: IM, l 05:59: Drug form: PDR/INJ, PRN, Dosing Weight 84.545, kg, PRN Blood Glucose Results, Start date: 02/17/20 0:59:00 CDT, Duration: 30 day, Stop date: 03/18/20 0:58:00 CDT, 0 Insulin 2019- No Notes: Memoria Lispro -18 (Same as: l 05:59: Humalog) Roll in palms of hands gently; Do not shake vigorously . WASTE: F/P - Black; E - Municipal Trash Bin Stable for 28 days at room temperatur e. Expires in days from ____Date Dextrose 2020-0 No 25 mL, Memoria 50% Syringe 02-16 Route: l (D50W) 05:58: IVP, Dosing Weight [...] Take with l 19:12: food. Dextrose 5% 0 No 1,000 mL, M emoria in Water IV 02-15 Rate: 50 l 1,000 mL 18:53: ml/hr, Infuse over: 20 hr, Route: IV, Dosing Weight 84.545 kg, Total Volume: 1,000, Start date: 02/16/20 13:53:00 CDT, Duration: 30 day, Stop date: 03/17/20 13:52:00 CDT, 1.91, m2, 0 Pyridostigm 2019-0 Yes 60 mg = 1 M emoria ine [place] 02-15 tab, PO, l 60 MG Oral 17:29: TID, 0 Gerda nn Tablet 00 Refill(s) [Mestinon] Clonazepam 2020-0 No Notes: Memor ia 02-15 (Same As: [...] / 14:00: Senokot-S) sennosides, 00 Equiv. to [facility] 8.6 MG [place] Oral Tablet e. Pyridostigm No Notes: Kalia aida ine 02-15 (Same as: l 14:00: Mestinon) Furosemide No Notes: Memor ia 20 MG Oral 02-15 (Same as: l Tablet 14:00: Lasix) May cause GI upset. Give with food or milk. Lisinopril No Notes: Memor ia 02-15 (Same as: l 14:00: Prinivil, Jorge Alberto 00 Zestril) Sertraline No Notes: Memor ia 02-15 (Same as: l 14:00: Zoloft) thiamine No 200 mg = 2 Mem oria 100 mg oral 02-15 tab, PO, l tablet 13:57: Daily 00 3 ML Yes See Memoria Insulin, 02-15 Instructio l Aspart, 13:55: ns, 10 [place] Human 100 00 unit SUB-Q UNT/ML Pen TID-Before Injector Meals and [NovoLog] at bedtime, 0 Refill(s) 3 ML No 30 unit, Memoria insulin 02-15 SUB-Q, l detemir 100 13:55: BID, 0 Herm mercy UNT/ML 00 Refill(s) Prefilled Syringe [Levemir] Thyroxine No Notes: Memori a 02-15 Take 1 l 11:30: hour Jorge Alberto 00 before or 2 hours after meal; Enteral feeds may interefere with the absorption of this medication . (Same as:Synthro id) heparin No Notes: Memoria sodium, 02-15 porcine l porcine 05:00: heparin Jorge Alberto 2500 UNT/ML 00 Injectable Solution rosuvastati No Notes: Kalia aida n 02-15 (Same As: l 02:00: Crestor) Dextrose No 12.5 gm, Memor ia 50% Syringe 02-15 25 mL, l (D50W) 00:49: Route: IVP, Drug Form: INJ, Dosing Weight 84.545, kg, PRN, PRN Blood Glucose Results, Start date: 02/15/20 19:49:00 CDT, Duration: 30 day, Stop date: 03/16/20 19:48:00 CDT, 0 Glucagon No 1 mg, Memoria 02-15 Route: IM, l 00:49: Drug form: PDR/INJ, PRN, Dosing Weight 84.545, kg, PRN Blood Glucose Results, Start date: 02/15/20 19:49:00 CDT, Duration: 30 day, Stop date: 03/16/20 19:48:00 CDT, 0 Insulin No Notes: Memoria Lispro 02-15 (Same as: l 00:49: Humalog) Roll in palms of hands gently; Do not shake vigorously . WASTE: F/P - Black; E - Municipal Trash Bin Stable for 28 days at room temperatur e. Expires in days from ____Date Amlodipine No Notes: Memor ia 02-15 (Same as: l 00:46: Norvasc) predniSONE 2019-0 Yes 20mg QD Take [facility] 02-15 tablet (20 Ruby kes - 20 MG 00:00: mg total) Medical tablet 00 by mouth Center daily. predniSONE 2019-0 2019- No 20mg QD Take [address] [facility] (DELTASONE) 02-15- tablet (20 L ukes - 20 MG 00:00: 00:00 mg total) Medica l tablet 00 :00 by mouth Center daily for 10 days. metoprolol 0 Yes 25mg QD Take [address] (TOPROL-XL) 9-16 by mouth [facility] - 25 MG 24 hr 16:38: daily. Medi roger tablet 36 Center furosemide 2020-0 Yes 40mg QD Take [address] (LASIX) 40 9-16 by mouth [facility] - MG tablet 16:38: daily. Medica l 36 Center ramipril 2020-0 Yes 5mg QD Take [address] [facility] (ALTACE) 5 9-16 by mouth [facility] - MG capsule 16:38: daily. Medic al 36 Center rOPINIRole 2020-0 Yes 2mg QD Take [address] (REQUIP) 2 9-16 by mouth [facility] - MG tablet 16:38: nightly. Medi roger 36 Center amLODIPine 2020-0 Yes 5mg QD [...] 9-16 Units [facility] - (LANTUS 16:38: subcutaneo Medi roger SOLOSTAR) 36 usly 2 Center 100 unit/mL [...] MG 16:38: mouth Medical capsule 36 daily. [place] atorvastati 2020-0 Yes 40mg QD Take [address] (LIPITOR) 9-16 by mouth Luke [facility] - 40 MG 16:38: daily. Medical tablet 36 Center pyridostigm 2020-0 Yes 60mg Take [address] [address] ine 9-16 (60 mg [facility] - (MESTINON) 00:00: total) by dical 60 mg/5 mL 00 mouth Center syrup every 8 (eight) hours. pyridostigm 2020-0 2020- No 60mg Take [address] ine 9-16 09-16 (60 mg [facility] - (MESTINON) 00:00: 00:00 total) by Natasha figueroa 60 mg/5 mL 00 :00 mouth Center syrup every 8 (eight) hours. levothyroxi 2020-0 2020- No 1{tbl} Take [address] ne 88 mcg 02-11 tablet by Luke s - Cap 01:41: [...] MG tablet 00:00: nightly. Medi roger 00 [place] rosuvastati 2020-0 Yes 20mg QD Take [address] [facility] (CRESTOR) 8- by mouth [facility] - 20 MG [...] tab, PO, l tablet 20:22: Daily, # [place] 00 30 tab, 0 Refill(s), Pharmacy: [facility] #[id number], 149.86, cm, 12/06/19 15:12:00 CDT, [...] 7-20 mL, PO, l oral 20:22: BID-Before [place] suspension 00 Meals, # 600 mL, 0 [...] 7-20 Route: IM, l 13:19: Drug form: PDR/INJ, PRN, Dosing Weight 90, [...] IV 7-20 25 mL, l 13:18: Route: Jorge Alberto IVP, Drug Form: INJ, Dosing Weight 90, kg, PRN, PRN Blood Glucose Results, Start date: 12/19/19 8:18:00 CDT, Duration: 30 day, Stop date: 01/18/20 8:17:00 CDT, 0 Glucagon 2020-0 No 1 mg, Memoria - Route: IM, l 13:18: Drug form: Jorge Alberto 00 PDR/INJ, PRN, Dosing Weight 90, kg, PRN Blood Glucose Results, Start date: 12/19/19 8:18:00 CDT, Duration: 30 day, Stop date: 01/18/20 8:17:00 CDT, 0 Insulin 2020-0 No Notes: Memoria Lispro -20 (Same as: l 13:18: Humalog) Roll in palms of hands gently; Do not shake vigorously . WASTE: F/P - Black; E - Municipal Trash Bin Stable for 28 days at room temperatur e. Expires in days from ____Date Potassium 2019-0 No Notes: Memori a Chloride -18 (Same as: l 1.33 MEQ/ML 18:56: Potassium H erm Oral Chloride) Solution Dextrose 2020-0 No 12.5 gm, Memor ia 50% Syringe 12-15 25 mL, l (D50W) 20:42: Route: Jorge Alberto 00 IVP, Drug Form: INJ, Dosing Weight 90, kg, PRN, PRN Blood Glucose Results, Start date: 12/16/19 15:42:00 CDT, Duration: 30 day, Stop date: 01/15/20 15:41:00 CDT, 0 Glucagon 2020-0 No 1 mg, Memoria - Route: IM, l 20:42: Drug form: [place] PDR/INJ, PRN, Dosing Weight 90, kg, PRN Blood Glucose Results, Start date: 12/16/19 15:42:00 CDT, Duration: 30 day, Stop date: 01/15/20 15:41:00 CDT, 0 Insulin No Notes: Memoria Lispro 7-17 (Same as: l 20:42: Humalog) [place] 00 Roll in palms of hands gently; Do not shake vigorously . WASTE: F/P - Black; E - Municipal Trash Bin Stable for 28 days at room temperatur e. Expires in days from ____Date potassium No Notes: Memori a phosphate-s 7-16 (Same as: l odium 22:00: Phos-NaK) Jorge Alberto phosphate 00 Each 1.5 250 mg-280 gm pkt has mg-160 mg 250mg oral powder phosphorou for s. Mix reconstitut w/2.5oz ion water and stir. Potassium No Notes: Memori a Chloride 7-16 (Same as: l 01:00: KCL) Jorge Alberto 00 Infuse over 2 hours. Morphine No Notes: Memoria 7-15 (Same l 23:52: as:MORPhin Jorge Alberto 00 e Sulfate) potassium No Notes: Memori a phosphate 7-14 (Same as: l 22:19: K [place] 00 Phosphate. ) Do not infuse phosphorou s concurrent ly in the same line as TPN or IVF that contains calcium. For double lumen central lines, phosphorou s may be infused in a separate lumen from TPN. 1 mMol phoshate has 1.47 mEq potassium Infuse over 4 hours insulin, No Notes: Memoria isophane 7-14 (Same as: l 14:00: Humulin N) Jorge Alberto 00 Roll in [...] 7-14 (Same as: l 00:58: Humulin N) Roll in palms of hands gently; Do not shake vigorously . WASTE: F/P - Black; E - Municipal Trash Bin Stable for 31 days at room temperatur e Expires in days from ____Date Albuterol No Notes: Memori a 0.833 MG/ML 12-11 (Same as: l / 21:35: Duoneb) Ipratropium 00 [place] 0.167 MG/ML Inhalant Solution Furosemide No Notes: Memor ia 12-11 (Same as: l 19:00: Lasix) MEDICATION WASTE Product Size: 40 mg Product Wasted: ___ mg Potassium No Notes: Memori a Chloride 12-11 (Same as: l 13:51: Potassium Chloride) Furosemide No Notes: Memor ia 13 (Same as: l 13:02: Lasix) MEDICATION WASTE Product Size: 40 mg Product Wasted: ___ mg Lovenox No Notes: Memoria 7-12 (Same as: l 23:00: Lovenox) Magnesium No Notes: Memori a Sulfate 12-10 WASTE: F/P l 22:03: - Sink; E - Municipal Trash Bin potassium No Notes: Memori a phosphate -12 (Same as: l 22:02: K Phosphate. ) [...] a 7-12 (Same as: l 17:40: Ativan) [place] 00 Ofirmev No Notes: Memoria 7-12 Infuse l 17:00: over 15 minutes Do not exceed 4gm/day of acetaminop hen MEDICATION WASTE Product Size: 1000 mg Product Wasted: ___ mg Lidocaine No Notes: Memori a Hydrochlori -12 (Same as: l de 0.02 14:07: Xylocaine Gerda nn MG/MG 00 Jelly, Topical Gel Glydo) Morphine No Notes: Memoria 7-12 (Same l 14:06: as:MORPhin [place] 00 e Sulfate) Blistex No Notes: Memoria topical 12 Same as: l ointment 14:00: Blistex Berto n 00 LR IV 1,000 No 1,000 mL, M emoria mL 12-10 Rate: 75 l 05:31: ml/hr, Infuse over: 13.3 hr, Route: IV, Dosing Weight 90 kg, Total Volume: 1,000, Start date: 12/11/19 0:31:00 CDT, Duration: 1 day, Stop date: 12/12/19 0:30:00 CDT, 1.98, m2, 0 pantoprazol No Notes: For Memoria e 12-10 IV push l 02:00: reconstitu te with 10 ml 0.9% sodium chloride and push over 2 minutes. (Same as: Protonix) Lovenox No Notes: Memoria 7-12 (Same as: l 02:00: Lovenox) Lanolin No Notes: Memoria 0.157 MG/MG 7-11 (Same as: l / Menthol 23:30: Calmosepti He rmann 0.0044 00 ne) MG/MG / Petrolatum 0.24 MG/MG / Zinc Oxide 0.206 MG/MG Topical Ointment [Calmosepti ne] insulin, No Notes: Memoria isophane 7-11 (Same as: l 22:00: Humulin N) Roll in palms of hands gently; Do not shake vigorously . WASTE: F/P - Black; E - Municipal Trash Bin Stable for 31 days at room temperatur e Expires in days from ____Date Lasix 2019-0 No Notes: Memoria 7-11 (Same as: l 22:00: Lasix) [place] 00 May cause GI upset. Give with food or milk. Dextrose 2019-0 No 12.5 gm, Memor ia 50% Syringe 7-11 25 mL, l (D50W) 16:56: Route: Jorge Alberto 00 IVP, Drug Form: INJ, Dosing Weight 90, kg, PRN, PRN Blood Glucose Results, Start date: 12/10/19 11:56:00 CDT, Duration: 30 day, Stop date: 01/09/20 11:55:00 CDT, 0 Glucagon 2020-0 No 1 mg, Memoria 7-11 Route: IM, l 16:56: Drug form: PDR/INJ, PRN, Dosing Weight 90, kg, PRN Blood Glucose Results, Start date: 12/10/19 11:56:00 CDT, Duration: 30 day, Stop date: 01/09/20 11:55:00 CDT, 0 Insulin 2019-0 No Notes: Memoria Lispro 7-11 (Same as: l 16:56: Humalog) Roll in palms of hands gently; Do not shake vigorously . WASTE: F/P - Black; E - Municipal Trash Bin Stable for 28 days at room temperatur e. Expires in days from ____Date Dextrose 5% 2019-0 No 1,000 mL, M eloinaria with 0.45% 7-11 Rate: 75 l NaCl IV 00:56: ml/hr, [place] 1,000 mL 00 Infuse over: 13.3 hr, Route: IV, Dosing Weight 90 kg, Total Volume: 1,000, Start date: 12/09/19 19:56:00 CDT, Duration: 30 day, Stop date: 01/08/20 19:55:00 CDT, 1.98, m2, 0 pantoprazol 2020-0 No Notes: For Memoria e additive 7-10 IV push l 80 mg + 22:19: reconstitu Herm mercy Sodium 00 te with 10 Chloride ml 0.9% 0.9% IV 100 sodium mL chloride and push over 2 minutes. (Same as: Protonix) pantoprazol No Notes: For Memoria e 7- IV push l 17:40: reconstitu [place] 00 te with 10 ml 0.9% sodium chloride and push over 2 minutes. (Same as: Protonix) Acetaminoph No Notes: Do M emoria en 12-08 not exceed l 05:00: 4 gm/day. [place] 00 (Same as: Tylenol) Amlodipine No Notes: Memor ia 12-07 (Same as: l 14:00: Norvasc) Ramipril No Notes: Memoria 12-07 (Same l 14:00: as:Altace) Dextrose 2019-0 No 12.5 gm, Memor ia 50% in 12-06 25 mL, l Water IV 17:21: Route: [place] 00 IVP, Drug Form: INJ, Dosing Weight 90, kg, PRN, PRN Blood Glucose Results, Start date: 12/07/19 12:21:00 CDT, Duration: 30 day, Stop date: 01/06/20 12:20:00 CDT, 0 Glucagon 2019- No 1 mg, Memoria 12-06 Route: IM, l 17:21: Drug form: PDR/INJ, PRN, Dosing Weight 90, kg, PRN Blood Glucose Results, Start date: 12/07/19 12:21:00 CDT, Duration: 30 day, Stop date: 01/06/20 12:20:00 CDT, 0 Insulin 2019-0 No Notes: Memoria Lispro 12-06 (Same as: l 17:21: Humalog) Roll in palms of hands gently; Do not shake vigorously . WASTE: F/P - Black; E - Municipal Trash Bin Stable for 28 days at room temperatur e. Expires in days from ____Date Prednisone No Notes: Memor ia 12-06 Take with l 14:00: food. Potassium 2020-0 No Notes: Memori a Chloride 12-06 (Same as: l 12:51: Potassium Chloride) Lovenox No Notes: Memoria 12-05 (Same as: l 23:00: Lovenox) Lasix No Notes: Memoria 12-05 (Same as: l 20:35: Lasix) Tylenol No Notes: Do Memor ia 12-05 not exceed l 17:17: 4 gm/day. [place] 00 (Same as: Tylenol) Dextrose No 12.5 gm, Memor ia 50% Syringe 12-05 25 mL, l (D50W) 17:15: Route: [place] IVP, Drug Form: INJ, Dosing Weight 90, kg, PRN, PRN Blood Glucose Results, Start date: 12/06/19 12:15:00 CDT, Duration: 30 day, Stop date: 01/05/20 12:14:00 CDT, 0 Glucagon No 1 mg, Memoria 12-05 Route: IM, l 17:15: Drug form: [place] 00 PDR/INJ, PRN, Dosing Weight 90, kg, [...] 00 chlorhexidi No Notes: Kalia aida ne 12-05 (Same As: l gluconate 14:00: Peridex) Herm mercy 1.2 MG/ML 00 Mouthwash ocular No Notes: Memoria lubricant 12-05 (Same as: l 11:00: Lacri-Lube 00 , Puralube, Duratears Naturale, Artificial Tears, and Tears Again ) chlorhexidi 2019-0 No Notes: Kalia aida ne 12-05 (Same As: l gluconate 05:13: Peridex) Herm mercy 1.2 MG/ML 00 Mouthwash Hydrocortis 2020-0 No Notes: Kalia aida one 12-05 (Same as: l 05:00: Solu-BREKLEY [place] 00 F) Neurontin 2020-0 No Notes: Memori a 12-05 (Same as: l 02:00: Neurontin) NS 1,000 mL 2020-0 No 1,000 mL, M emoria 12-05 Rate: 40 l 01:50: ml/hr, Infuse over: 25 hr, Route: IV, Dosing Weight 90 kg, Total Volume: 1,000, Start date: 12/05/19 20:50:00 CDT, Duration: 30 day, Stop date: 01/04/20 20:49:00 CDT, 1.98, m2, 0 Baclofen 20200 No 5 mg, 1 Memori a 12-05 tab, l 01:45: Route: GT, Drug form: TAB, Q8H, Dosing Weight 90, kg, PRN Muscle Spasms, Start date: 12/05/19 20:45:00 CDT, Duration: 30 day, Stop date: 01/04/20 20:44:00 CDT, 0 Tramadol 2019-0 No Notes: Not Mem oria 12-05 to exceed l 01:45: 400mg/day. Jorge Alberto (Same As: Ultram) Fentanyl 2019-0 No Notes: Memoria 12-05 (Same as: l 01:45: Sublimaze) Preservat kimberly free. Vancomycin 2019-0 No 2000 mg: Me moria 12-04 infuse l 23:00: over 2.5 hours For adult patients only: Round to nearest 250 mg per Medical Staff approval MEDICATION WASTE Product Size: 1000 mg Product Wasted: ___ mg Hydralazine 2020-0 No Notes: Kalia aida 12-04 (Same as: l 22:22: Apresoline ) Push over 5 minutes Labetalol 2020-0 No 10 mg, 2 Kalia aida - mL, Route: l 22:22: IVP, Drug form: INJ, Q5Min, Dosing Weight 90, kg, PRN Elevated BP, Start date: 12/05/19 17:22:00 CDT, Duration: 5 doses or times, Stop date: 12/06/19 0:00:00 CDT, 0 Acetaminoph 2019-0 No Notes: Kalia aida en - Infuse l 22:22: over 15 minutes Do not exceed 4gm/day of acetaminop hen MEDICATION WASTE Product Size: 1000 mg Product Wasted: ___ mg Fentanyl No Notes: Memoria 12-04 (Same as: l 22:22: Sublimaze) Preservat kimberly free. Flumazenil No Notes: Memor ia 12-04 (Same as: l 22:22: Romazicon) Naloxone 2019-0 No Notes: Memoria 12-04 Same as l 22:22: Narcan Ondansetron 2019- No Notes: Kalia aida 12-04 (Same as: [...] being intubated (unless the nurse is a ELECTRICAL TECH). Same as: Diprivan norepinephr 0 No Route: IV, Memoria ine (ANES) 12-04 Drug form: l 10 20:20: INJ, Start Jorge Alberto microgram date: 12/05/19 15:20:00 CDT, Stop date: 12/05/19 16:20:00 CDT norepinephr 2019-0 No Route: IV, Memoria ine (ANES) 12-04 Drug form: l 20:10: INJ, ONCE, [place] 00 Stop date: 12/05/19 15:10:00 CDT Insulin 2020-0 No Route: IV, Kalia aida regular 12-04 [...] CDT, Stop date: 12/05/19 11:56:00 CDT phenylephri 2019-0 No Route: IV, Memoria ne (ANES) 12-04 Drug form: l 100 15:46: INJ, Start Jorge Alberto microgram date: 12/05/19 10:46:00 CDT, Stop date: 12/05/19 11:46:00 CDT lidocaine 2020-0 No Route: IV, Me moria (ANES) 12-04 Drug form: l 15:35: INJ, ONCE, Jorge Alberto Stop date: 12/05/19 10:35:00 CDT phenylephri 2020-0 No Route: IV, Memoria ne (ANES) 12-04 Drug form: l 15:25: INJ, ONCE, Jorge Alberto Stop date: 12/05/19 10:25:00 CDT propofol 2020-0 No Route: IV, Mem oria (ANES) 12-04 Drug form: l 14:44: INJ, ONCE, Jorge Alberto 00 Stop date: 12/05/19 9:44:00 CDT succinylcho 2019-0 No Route: IV, Memoria line (ANES) 12-04 Drug form: l 14:44: INJ, ONCE, [place] Stop date: 12/05/19 9:44:00 CDT fentaNYL 2020-0 No Route: IV, Mem oria (ANES) 12-04 Drug form: l 14:44: INJ, ONCE, [place] Stop date: 12/05/19 9:44:00 CDT dexamethaso 2019-0 No Route: IV, Memoria ne (ANES) 12-04 Drug form: l 14:39: INJ, ONCE, Jorge Alberto 00 Stop date: 12/05/19 9:39:00 CDT ePHEDrine No Route: IV, Me hurtado (ANES) 12-04 Drug form: l 13:58: INJ, ONCE, [place] Stop date: 12/05/19 8:58:00 CDT Sodium 2019-0 No Route: IV, Memor ia Chloride 12-04 Total l 0.9% IV 13:55: Volume: Jorge Alberto (ANES) 500 00 500, Start mL date: 12/05/19 8:55:00 CDT, Stop date: 12/05/19 9:55:00 CDT propofol No Route: IV, Mem oria (ANES) 10 12-04 Drug form: l mg 13:55: INJ, Start [place] 00 date: 12/05/19 8:55:00 CDT, Stop date: 12/05/19 9:55:00 CDT SUFentanil No Route: IV, Natasha de la fuente (ANES) 50 12-04 Drug form: l microgram 13:55: INJ, Start He rmann 00 date: 12/05/19 8:55:00 CDT, Stop date: 12/05/19 9:55:00 CDT Sodium 0 No Route: IV, Memor ia Chloride 12-04 Drug form: l 0.9% IV 13:45: INJ, Start Herm mercy (ANES) 235 00 date: mL + 12/05/19 vancomycin 8:45:00 (ANES) 1500 CDT, Stop mg date: 12/05/19 9:45:00 CDT Isolyte S No Route: IV, moria PH 7.4 12-04 Total l (ANES) 1000 13:08: Volume: Her restrepo mL 00 1,000, Start date: 12/05/19 8:08:00 CDT, Stop date: 12/05/19 9:08:00 CDT Albuterol 2019-0 No Notes: Memori a 0.833 MG/ML 12-04 (Same as: l / 13:00: Duoneb) [place] Ipratropium 00 [place] 0.167 MG/ML Inhalant Solution Humalog 2019-0 No Notes: Memoria 7- (Same as: l 21:30: Humalog) Jorge Alberto Roll in palms of hands gently; Do not shake vigorously . WASTE: F/P - Black; E - Municipal Trash Bin Stable for 28 days at room temperatur e. Expires in days from ____Date Humalog 2019-0 No Notes: Memoria 7- (Same as: l 18:08: Humalog) Jorge Alberto 00 Roll in palms of hands gently; Do not shake vigorously . WASTE: F/P - Black; E - Municipal Trash Bin Stable for 28 days at room temperatur e. Expires in days from ____Date Humalog 2019-0 No Notes: Memoria 7- (Same as: l 23:26: Humalog) [place] Roll in palms of hands gently; Do not shake vigorously . WASTE: F/P - Black; E - Municipal Trash Bin Stable for 28 days at room temperatur e. Expires in days from ____Date Insulin 2020-0 No Notes: Memoria Lispro - (Same as: l 05:57: Humalog) Jorge Alberto 00 Roll in palms of hands gently; Do not shake vigorously . WASTE: F/P - Black; E - Municipal Trash Bin Stable for 28 days at room temperatur e. Expires in days from ____Date Insulin 2020-0 No 20 unit, Memori a Glargine - 0.2 mL, l 14:00: Route: Jorge Alberto 00 SUB-Q, Drug form: SOLN, Daily, Dosing Weight 90, kg, Start date: 12/02/19 9:00:00 CDT, Duration: 30 day, Stop date: 12/31/19 9:00:00 CDT, 0 Levemir 2020-0 No 20 unit, Memori a 7- Route: l 02:00: SUB-Q, [place] 00 Bedtime, Dosing Weight 90, kg, Start date: 12/01/19 21:00:00 CDT, Duration: 30 day, Stop date: 12/30/19 21:00:00 CDT Dextrose 2020-0 No 12.5 gm, Memor ia 50% Syringe 11-30 25 mL, l (D50W) 18:30: Route: Jorge Alberto IVP, Drug Form: INJ, Dosing Weight 90, kg, PRN, PRN Blood Glucose Results, Start date: 12/01/19 13:30:00 CDT, Duration: 30 day, Stop date: 12/31/19 13:29:00 CDT, 0 Glucagon 2020-0 No 1 mg, Memoria 11-30 Route: IM, l 18:30: Drug form: [place] 00 PDR/INJ, PRN, Dosing Weight 90, kg, [...] 11-29 25 mL, l (D50W) 02:47: Route: [place] 00 IVP, Drug Form: INJ, Dosing Weight 90, kg, PRN, PRN Blood Glucose Results, Start date: 11/29/19 21:47:00 CDT, Duration: 30 day, Stop date: 12/29/19 21:46:00 CDT, 0 Glucagon 2020-0 No 1 mg, Memoria 11-29 Route: IM, l 02:47: Drug form: Jorge Alberto 00 PDR/INJ, PRN, Dosing Weight 90, kg, PRN Blood Glucose Results, Start date: 11/29/19 21:47:00 CDT, Duration: 30 day, Stop date: 12/29/19 21:46:00 CDT, 0 Insulin 2019-0 No Notes: Memoria Lispro 7-01 (Same as: l 02:47: Humalog) Jorge Alberto 00 Roll in palms [...] as: l de 10 MG/ML 21:00: Xylocaine) [place] Injectable 00 Solution Saline No Notes: Memoria Flush 0.9% 6-30 (Same as: l 21:00: BD [place] 00 Posiflush) Saline No Notes: Memoria Flush 0.9% 6-30 (Same as: l 20:21: BD [place] 00 Posiflush) Dextrose 5% No 1,000 mL, M [...] 05:11: Melatonin) Herm mercy Tablet 00 sennosides, 0 No Notes: Kalia aida SENIOR CARE 6-27 (Same as: l 02:00: Senokot) [place] 00 Insulin 2019-0 No 20 unit, Memori a Glargine -27 0.2 mL, l 100 UNT/ML 02:00: Route: Gerda nn Injectable 00 SUB-Q, Solution Drug form: [Lantus] SOLN, Q12H, Dosing Weight 90, kg, Start date: 11/25/19 21:00:00 CDT, Duration: 30 day, Stop date: 12/25/19 9:00:00 CDT, 0 Ramipril 2020-0 No Notes: Memoria 11-24 (Same l 14:00: as:Altace) [place] 00 Oxycodone 2019-0 No Notes: Memori a Hydrochlori 11-24 (Same as: l de 1 MG/ML 12:15: 'Roxicodon H ermann Oral 00 e) Solution rosuvastati 2019-0 No Notes: Kalia aida n 11-24 (Same As: l 02:00: Crestor) Acetaminoph 2019-0 Yes 650 mg = 2 Memoria en 325 MG 6-25 tab, PO, l Oral Tablet 17:08: PRN, 0 Herm mercy [Tylenol] 00 Refill(s) clonazePAM 2020-0 Yes 0.5 mg = 1 M emoria 0.5 mg oral 6-25 tab, PO, l tablet 17:08: BID, 0 [place] 00 Refill(s) sertraline 2020-0 Yes 25 mg = 1 Me moria 25 mg oral 6-25 tab, PO, l tablet 17:08: Daily, 0 [place] 00 Refill(s) predniSONE 2020-0 Yes 20 mg = 1 Me moria 20 mg oral 6-25 tab, PO, l tablet 17:08: Daily, 0 [place] 00 Refill(s) rosuvastati 2020-0 Yes 20 mg [...] 6-25 PO, BID, 0 l 17:08: Refill(s) [place] 00 3 ML 2020-0 No 10 unit, [...] 0 Insulin 2019-0 No Notes: Memoria regular 6-24 (Same as: l 23:05: Humulin R) [place] 00 Roll in palms of hands gently; Do not shake vigorously . WASTE: F/P - Black; E - Municipal Trash Bin Stable for 31 days at room temperatur e Expires in days from ____Date Dextrose 2019-0 No 12.5 gm, Memor ia 50% Syringe 24 25 mL, l (D50W) 22:47: Route: [place] IVP, Drug Form: INJ, Dosing Weight 90, kg, PRN, PRN Blood Glucose Results, Start date: 11/23/19 17:47:00 CDT, Duration: 30 day, Stop date: 12/23/19 17:46:00 CDT, 0 Glucagon 2019-0 No 1 mg, Memoria 6-24 Route: IM, l 22:47: Drug form: [place] PDR/INJ, PRN, Dosing Weight 90, kg, PRN Blood Glucose Results, Start date: 11/23/19 17:47:00 CDT, Duration: 30 day, Stop date: 12/23/19 17:46:00 CDT, 0 Insulin No Notes: Memoria regular -24 (Same as: l 22:47: Humulin R) Roll [...] CDT, Stop date: 11/23/19 10:35:00 CDT normal No 1,000 mL, Memori a saline 0.9% 11-22 Rate: 75 l IV 1,000 mL 15:33: ml/hr, Infuse over: 13.3 hr, Route: IV, Dosing Weight 90 kg, Total Volume: 1,000, Start date: 11/23/19 10:33:00 CDT, Duration: 30 day, Stop date: 12/23/19 10:32:00 CDT, 1.98, m2, 0 Zoloft No Notes: Memoria 6-24 (Same as: l 14:00: Zoloft) Prednisone 0 No Notes: Memor ia 6-24 Take with l 14:00: food. Docusate No Notes: Memoria 6-24 (Same as: l 12:53: Colace) Jorge Alberto 00 (Do Not Crush) sennosides, No Notes: Kalia aida SENIOR CARE 6-24 (Same as: l 12:53: Senokot) Albuterol No Notes: Memori a 0.833 MG/ML 24 (Same as: l / 11:46: Duoneb) Ipratropium 00 [place] 0.167 MG/ML Inhalant Solution Synthroid No Notes: Memori a 6-24 Take 1 l 11:30: hour Jorge Alberto 00 before or 2 hours after meal; Enteral feeds may interefere with the absorption of this medication . (Same as:Synthro id) remove No Notes: Memoria patch 6-24 Remove l 10:00: patch 12 Jorge Alberto 00 hours after applicatio n each day. Pyridostigm No Notes: Kalia aida ine 6-24 (Same as: l 05:00: Mestinon) Amlodipine No Notes: Memor ia 6-24 (Same as: l 04:45: Norvasc) Enoxaparin No Notes: Memor ia 6-23 (Same as: l 22:00: Lovenox) Lidocaine No Notes: Memori a Hydrochlori -23 Apply only l de 0.05 22:00: once for Berto n MG/MG 00 up to 12 Transdermal hours in a Patch 24-hour [Lidoderm] period (12 hours on and 12 hours off). (Same as: Lidoderm) "Remove old patch before applicatio n of new patch" Dextrose 2020-0 No 12.5 gm, Memor ia 50% Syringe 6-23 25 mL, l (D50W) 21:16: Route: Jorge Alberto 00 IVP, Drug Form: INJ, Dosing Weight 100, kg, PRN, PRN Blood Glucose Results, Start date: 11/22/19 16:16:00 CDT, Duration: 30 day, Stop date: 12/22/19 16:15:00 CDT, 0 Glucagon No 1 mg, Memoria 6-23 Route: IM, l 21:16: Drug form: Jorge Alberto 00 PDR/INJ, PRN, Dosing Weight 100, kg, PRN Blood Glucose Results, Start date: 11/22/19 16:16:00 CDT, Duration: 30 day, Stop date: 12/22/19 16:15:00 CDT, 0 Insulin No Notes: Memoria regular 6-23 (Same as: l 21:16: Humulin R) Roll in palms of hands gently; Do not shake vigorously . WASTE: F/P - Black; E - Municipal Trash Bin Stable for 31 days at room temperatur e Expires in days from ____Date Hydralazine No Notes: Kalia aida -23 (Same as: l 21:16: Apresoline ) Push over 5 minutes Acetaminoph No Notes: Max Memoria en - acetaminop l 21:10: hen 4000 mg/day (4 gm/day). (Same as: Tylenol Extra Strength) gabapentin No Notes: Memor ia 6-23 (Same as: l 21:10: Neurontin) Tramadol No Notes: Not Mem oria 6-23 to exceed l 21:10: 400mg/day. (Same As: Ultram) Saline No Notes: Memoria Flush 0.9% 6-23 Same as: l 21:09: BD Posiflush Sterile Ativan No Notes: Memoria 6-23 (Same as: l 20:29: Ativan) Ativan No 1 mg, Memoria 6-23 Route: l 20:28: IVP, Drug Jorge Alberto 00 form: INJ, ONCE, Dosing Weight 100, kg, PRN as needed for anxiety, Priority: Routine, Start date: 11/22/19 15:28:00 CDT Calcium 2020-0 No 500 mL, Memoria Chloride 11-21 Infuse l 0.0014 16:17: Over: 1 Jorge Alberto MEQ/ML / 00 hr, Route: Potassium IV, ONCE, [place] Priority: 0.004 STAT, MEQ/ML / Dosing Sodium Weight 100 Chloride kg, Start 0.103 date: MEQ/ML / 11/22/19 Sodium 11:17:00 Lactate CDT, Stop 0.028 date: MEQ/ML 11/22/19 Injectable 11:17:00 Solution CDT Iohexol 2019-0 No 150 mL, Memoria 11-21 Route: l 14:50: IVP, Drug Form: SOLN, Dosing Weight 100, kg, ONCALL, STAT, Start date: 11/22/19 9:50:00 CDT, Duration: 1 doses or times, Dose = 2.2ml/kg, Max dose = 150ml -- "To be infused by Radiology Staff ONLY" Fentanyl No Notes: Memoria 11-21 (Same as: l 12:54: Sublimaze) Preservat kimberly free. Calcium 2019-0 No 1,000 mL, Memor ia Chloride 11-21 Infuse l 0.0014 12:32: Over: 1 [place] MEQ/ML / 00 hr, Route: Potassium IV, ONCE, Chloride Priority: 0.004 STAT, MEQ/ML / Dosing Sodium Weight 100 Chloride kg, Start 0.103 date: MEQ/ML / 11/22/19 Sodium 7:32:00 Lactate CDT, Stop 0.028 date: MEQ/ML 11/22/19 Injectable 7:32:00 Solution CDT Iohexol 2020-0 No 100 mL, Memoria 11-21 Route: l 12:08: IVP, Drug [place] 00 Form: SOLN, Dosing Weight 100, kg, ONCALL, STAT, Start date: 11/22/19 7:08:00 CDT, Duration: 1 doses or times, Dose = 2.2ml/kg, Max dose = 100ml -- "To be infused by Radiology Staff ONLY" heparin 2018-06 Yes Notes: Memoria flush 0-04 (Same as: l 23:00: Heparin Jorge Alberto 00 Lock Flush) heparin 2018-06 No 100 unit, Memor ia 0-04 Route: l 22:24: IVP, ONCE, Dosing Weight 100, kg, Start date: 03/04/19 [...] Ergocalcife 2018-06 Yes 50,000 Kalia aida rol 38203 0-04 IntlUnit = l UNT Oral 21:09: [...] oral 0-04 tab, PO, l tablet 21:09: [id number], X Gerda nn 00 7 day, # 14 tab, 0 Refill(s) meclizine 2018-06 Yes 12.5 mg = Mem oria 12.5 mg 0-04 1 tab, PO, l oral tablet 21:09: TID, PRN He rmann 00 Dizziness, X 7 day, # 100 tab, 0 Refill(s) melatonin 3 2018-06 Yes 6 mg = 2 Me moria mg oral 0-04 tab, PO, l tablet 21:09: Bedtime, [place] 00 PRN Sleep, X 30 day, # 120 tab, 0 Refill(s) Metronidazo 2018-06 Yes 500 mg = 1 Memoria le 500 MG 0-04 tab, PO, l Oral Tablet 21:09: [id number], X H ermann 00 7 day, # 21 tab, 0 Refill(s) predniSONE 2018-06 Yes 25 mg = 5 Me moria 5 mg oral 0-04 tab, PO, l tablet 21:09: Daily, # [place] 00 150 tab, 0 Refill(s) pyridostigm 2018-06 [...] 2 tab, PO, Memoria azole 800 0-04 [id number], X l MG / 21:09: 7 day, [...] oral 0-04 tab, PO, l tablet 18:44: [id number], 0 Gerda nn 00 Refill(s) meclizine 2018-06 No 12.5 mg = Mem oria 12.5 mg 0-04 1 tab, PO, l oral tablet 18:44: TID, PRN He r[place] 00 Dizziness, 0 Refill(s) melatonin 3 2018-06 No 6 mg = 2 Me moria mg oral 0-04 tab, PO, l tablet 18:44: Bedtime, [place] 00 PRN Sleep, 0 Refill(s) Metronidazo 2018-06 No 500 mg = 1 Memoria le 500 MG 0-04 tab, PO, l Oral Tablet 18:44: [id number], 0 H ermann 00 Refill(s) QUEtiapine 2018-06 No 25 mg = 1 Me moria 25 mg oral 0-04 tab, PO, l tablet 18:44: Bedtime, 0 Gerda nn 00 Refill(s) Sulfamethox 2018-06 No 2 tab, PO, Memoria azole 800 0-04 [id number], 0 l MG / 18:44: Refill(s) Jorge Alberto Trimethopri 00 m 160 MG Oral Tablet [Bactrim] Acetaminoph 2018-06 No 650 mg = 2 Memoria en 325 MG 0-04 tab, PO, l Oral Tablet 18:44: Q6H, PRN He rmann 00 Pain Score 7-10, 0 Refill(s) Ergocalcife 2018-06 No 50,000 Kalia aida rol 54080 0-04 IntlUnit = l UNT Oral 18:44: [...] tab, PO, l tablet 18:44: Daily, 0 Jorge Alberto 00 Refill(s) Flagyl 2018-06 No 500 mg, 1 Memori a 0-04 tab, l 14:00: Route: PO, [place] 00 Drug form: TAB, [id number], Dosing Weight 100, kg, Start date: 03/04/19 9:00:00 CDT, Duration: 14 day, Stop date: 03/18/19 1:00:00 CDT, ABX Indication : Skin/Soft Tissue Infection, 0 Furosemide 2018-06 No Notes: Memor ia 40 MG Oral 0-03 (Same as: l Tablet 14:00: Lasix) [Lasix] 00 May cause GI upset. Give [...] PO, Jorge Alberto 00 Drug form: TAB, [id number], Dosing Weight 90.909, kg, Start date: 02/26/19 17:00:00 CDT, Duration: 10 day, Stop date: 03/08/19 8:00:00 CDT, ABX Indication : Skin/Soft Tissue Infection, 0 Sulfamethox No 2 tab, Kalia aida azole 800 02-26 Route: PO, l MG / 22:00: Drug Form: [place] Trimethopri 00 TAB, m 160 MG Dosing Oral Tablet Weight [Bactrim] 90.909, kg, [id number], Start date: 02/26/19 17:00:00 CDT, Duration: 10 [...] ONCE, Stop date: 02/26/19 12:48:00 CDT Hydralazine No 10 mg, Kalia aida 02-26 Route: l 17:36: IVP, [place] 00 Q20Min, Dosing Weight 90.909, kg, PRN Elevated BP, Start date: 02/26/19 12:36:00 CDT, Duration: 2 doses or times, Stop date: Limited # of times Labetalol 2019-0 No 10 mg, Memori a 02-26 Route: l 17:36: IVP, [place] 00 Q5Min, Dosing Weight 90.909, kg, PRN [...] aida 02-26 Route: l 17:36: IVP, PRN, [place] Dosing Weight 90.909, kg, PRN Benzodiaze pine Reversal, Initial dose, Start date: 02/26/19 12:36:00 CDT, Duration: 30 day, Stop date: 03/28/19 12:35:00 CDT Naloxone 2019-0 No 0.4 mg, Memori a 02-26 Route: l 17:36: IVP, [place] 00 Q2MIN, Dosing Weight 90.909, kg, PRN [...] as: l 14:00: Humulin N) Jorge Alberto 00 Roll in palms of hands gently; Do not shake vigorously . WASTE: F/P - Black; E - Municipal Trash Bin Stable for 31 days at room temperatur e Expires in days from ____Date Labetalol 2019-0 No 10 mg, Memori a 02-23 Route: l 04:53: IVP, [place] 00 Q5Min, Dosing Weight 90.909, kg, PRN [...] aida 02-23 Route: l 04:53: IVP, PRN, [place] 00 Dosing Weight 90.909, kg, PRN Benzodiaze [...] Memoria regular 02-23 Route: l 04:53: SUB-Q, [place] Sliding Scale, Dosing Weight 90.909, kg, PRN Blood Glucose Results, Start date: 02/22/19 23:53:00 CDT, Duration: 30 day, Stop date: 03/24/19 23:52:00 CDT ertapenem No Notes: Me moria 02-23 MEDICATION l 02:00: WASTE Jorge Alberto 00 Product Size: 1000 mg Product Wasted: ___ [...] ia 02-22 Take with l 14:00: food. Jorge Alberto 00 Saline 0 No 10 mL, Memoria Flush 0.9% 02-21 Route: l 21:00: IVP, Drug Form: INJ, Dosing Weight 90.909, kg, Q8H, Start date: 02/21/19 16:00:00 CDT, Duration: 30 day, Stop date: 03/23/19 8:00:00 CDT Lidocaine No 5 mL, Memoria Hydrochlori 02-21 Route: l de 10 MG/ML 20:00: INTRADERM, Jorge Alberto Injectable Dosing Solution Weight 90.909, kg, ONCALL, For PICC line insertion. , Start date: 02/21/19 15:00:00 CDT, Duration: 30 day, Stop date: 03/23/19 14:59:00 CDT Saline No 10 mL, Memoria Flush 0.9% 02-21 Route: l 19:42: IVP, Drug Form: INJ, Dosing Weight 90.909, kg, PRN, PRN Line Flush, Start date: 02/21/19 14:42:00 CDT, Duration: 30 day, Stop date: 03/23/19 14:41:00 CDT Lidocaine 2019-0 No 5 mL, Memoria Hydrochlori - Route: l de 10 MG/ML 19:00: INTRADERM, [...] l de 20 MG/ML 18:20: TOP, ONCE, [place] Topical Start [place] date: 02/21/19 13:20:00 CDT, Stop date: 02/21/19 13:20:00 CDT Lidocaine No Notes: Memori a Hydrochlori - (Same as: l de 10 MG/ML 17:00: Xylocaine) Jorge Alberto Injectable Solution Saline No 10 mL, Memoria Flush 0.9% 9- Route: l 16:54: IVP, Drug Jorge Alberto 00 Form: INJ, Dosing Weight 90.909, kg, PRN, PRN Line Flush, Start date: 02/21/19 11:54:00 CDT, Duration: 30 day, Stop date: 03/23/19 11:53:00 CDT Saline No Notes: Memoria Flush 0.9% 9-23 (Same as: l 05:00: BD [place] 00 Posiflush) Lidocaine No Notes: Memori a Hydrochlori 9-22 Preservati l de 10 MG/ML 22:00: ve free. He rmann Injectable 00 (Same as: Solution Xylocaine MPF) Saline No Notes: Memoria Flush 0.9% 9-22 (Same as: l 21:25: BD [place] 00 Posiflush) insulin, No Notes: Memoria isophane 02-20 [...] Memoria 02-20 (Same As: l 04:51: ZyPREXA Jorge Alberto 00 IM). insulin, No Notes: Memoria isophane [...] detemir 02-18 Non-Formul l 14:00: jordi Drug [place] 00 (Same as Levemir) "Single Patient Use [...] s with feeding tube less than 14 Indian (Dobhoff, J-tube etc) and pediatric and patients. PlasmaLyte No Notes: Memor ia A PH-7.4 02-18 (Same as: l 1,000 mL 12:26: Isolyte S [facility] PH 7.4) insulin No Notes: Memoria [...] No 2000 mg: Me moria + Sodium -18 infuse l Chloride 14:30: over 2.5 Gerda [...] mg Vancomycin No 1,000 mg, Me moria 9-18 Route: l 13:00: IVPB, Drug form: INJ, [...] Memoria 02-14 Non-Formul l 14:00: jordi Drug [place] 00 (Same as Levemir) "Single Patient Use [...] Lispro 02-14 (Same as: l 02:57: Humalog) [place] 00 Roll in palms of hands gently; Do not shake vigorously . WASTE: F/P - Black; E - Municipal Trash Bin Stable for 28 days at room temperatur e. Expires in days from ____Date Dextrose 2019-0 No 12.5 gm, Memor ia 50% Syringe 02-14 25 mL, l 01:33: Route: Jorge Alberto 00 IVP, Drug Form: INJ, Dosing Weight 90.909, kg, PRN, PRN Blood Glucose Results, Start date: 02/13/19 20:33:00 CDT, Duration: 30 day, Stop date: 03/15/19 20:32:00 CDT, 0 Glucagon 2019-0 No 1 mg, Memoria 02-14 Route: IM, l 01:33: Drug form: [place] 00 PDR/INJ, PRN, Dosing Weight 90.909, kg, [...] 2019-0 No 25 mL, Memoria 50% Syringe 16 Route: l 01:32: IVP, Jorge Alberto 00 Dosing Weight 90.909, kg, PRN, PRN Blood Glucose Results, Start date: 02/13/19 20:32:00 CDT, Duration: 30 day, Stop date: 03/15/19 20:31:00 CDT Glucagon 2019-0 No 1 mg, Memoria 9-16 Route: IM, l 01:32: PRN, Jorge Alberto 00 Dosing Weight 90.909, kg, PRN Blood Glucose Results, Start date: 02/13/19 20:32:00 CDT, Duration: 30 day, Stop date: 03/15/19 20:31:00 CDT Insulin 2019-0 No 2 unit, Memoria regular 9-16 Route: l 01:32: SUB-Q, [place] 00 TID-Before Meals, Dosing Weight 90.909, kg, PRN Blood Glucose Results, Start date: 02/13/19 20:32:00 CDT, Duration: 30 day, Stop date: 03/15/19 20:31:00 CDT Morphine No Notes: Memoria 9-15 (Same l 22:52: as:MORPhin [place] 00 e Sulfate) Insulin No Notes: Memoria Lispro 9-15 (Same as: l 04:38: Humalog) Jorge Alberto 00 Roll in palms of hands gently; Do not shake vigorously . WASTE: F/P - Black; E - Municipal Trash Bin Stable for 28 days at room temperatur e. Expires in days from ____Date Saline No Notes: Memoria Flush 0.9% 9-14 (Same as: l 21:00: BD [place] 00 Posiflush) Ativan No Notes: Memoria 9-14 (Same as: l 17:02: Ativan) [place] 00 Lidocaine No 5 mL, Memoria Hydrochlori 14 Route: l de 10 MG/ML 17:00: INTRADERM, Jorge Alberto Injectable 00 Dosing Solution Weight 90.909, kg, ONCALL, For PICC line insertion. , Start date: 02/12/19 12:00:00 CDT, Duration: 30 day, Stop date: 03/14/19 11:59:00 CDT Saline No Notes: Memoria Flush 0.9% 9-14 (Same as: l 16:23: BD Jorge Alberto 00 Posiflush) Morphine No Notes: Memoria 9-14 (Same l 16:12: as:MORPhin [place] 00 e Sulfate) Isolyte S No Notes: Memori a PH 7.4 9-14 (Same as: l 06:30: Isolyte S [place] 00 PH 7.4) Isolyte S No Notes: [...] 100 Memoria 9-11 ml/min, l 13:00: Time [place] 00 Critical Medication , Start date: 02/09/19 [...] l 03:00: Cleocin) Levemir No Notes: Memoria -11 Non-Formul l 00:30: jordi Drug (Same as Levemir) "Single Patient Use Only" Do not hold insulin without contacting prescriber WASTE: F/P - Black; E - Municipal Trash Bin Stable for 42 days at room temperatur e Expires in days from ____Date Humalog 2018-0 No Notes: Memoria 9-10 (Same as: l 12:30: Humalog) [place] 00 Roll in palms of hands gently; Do not shake vigorously . WASTE: F/P - Black; E - Municipal Trash Bin Stable for 28 days at room temperatur e. Expires in days from ____Date Dextrose 0 No 12.5 gm, Memor ia 50% Syringe 02-08 25 mL, l 06:33: Route: [place] 00 IVP, Drug Form: INJ, Dosing Weight 90.909, kg, PRN, PRN Blood Glucose Results, Start date: 02/08/19 1:33:00 CDT, Duration: 30 day, Stop date: 03/10/19 1:32:00 CDT, 0 Glucagon No 1 mg, Memoria - Route: IM, l 06:33: Drug form: [place] 00 PDR/INJ, PRN, Dosing Weight 90.909, kg, PRN Blood Glucose Results, Start date: 02/08/19 1:33:00 CDT, Duration: 30 day, Stop date: 03/10/19 1:32:00 CDT, 0 Insulin No Notes: Memoria Lispro -10 (Same as: l 06:33: Humalog) [place] 00 Roll in palms of hands gently; Do not shake vigorously . WASTE: F/P - Black; E - Municipal Trash Bin Stable for 28 days at room temperatur e. Expires in days from ____Date Humalog 2018-0 No Notes: Memoria 9-10 (Same as: l 03:51: Humalog) Jorge Alberto 00 Roll in palms of hands gently; Do not shake vigorously . WASTE: F/P - Black; E - Municipal Trash Bin Stable for 28 days at room temperatur e. Expires in days from ____Date NS (Bolus) 0 No 500 mL, Kalia aida IV 9-10 500 ml/hr, l 03:50: Infuse [place] 00 Over: 1 hr, Route: IV, ONCE, Priority: STAT, Dosing Weight 90.909 kg, Start date: 02/07/19 22:50:00 CDT, Stop date: 02/07/19 22:50:00 CDT normal 2019-0 No 1,000 mL, Memori a saline 0.9% 9-10 Rate: 75 l IV 1,000 mL 03:50: ml/hr, Herm Infuse over: 13.3 hr, Route: IV, Dosing Weight 90.909 kg, Total Volume: 1,000, Start date: 02/07/19 22:50:00 CDT, Duration: 30 day, Stop date: 03/09/19 22:49:00 CDT, 1.99, m2, 0 remove No 1 patch, Memoria patch - Route: l 02:00: TOP, [place] 00 Bedtime, Drug form: ERFILM, Start date: 02/07/19 21:00:00 CDT, Duration: 30 day, Stop date: 03/08/19 21:00:00 CDT, 0 Humalog 2018-0 No Notes: Memoria 9-10 (Same as: l 01:20: Humalog) [place] 00 Roll in palms of hands gently; [...] CDT, Stop date: 02/07/19 17:12:00 CDT Lidocaine No 1 patch, Kalia aida 0.05 MG/MG 02-07 Route: l Transdermal 19:00: TOP, Berto n Patch 00 Daily, Drug form: FILM, Start date: 02/07/19 14:00:00 CDT, Duration: 30 day, Stop date: 03/09/19 9:00:00 CDT, 0 Ergocalcife No 50,000 Kalai aida rol [id number] 02-07 IntlUnit, l UNT Oral 18:16: 1 cap, [place] Capsule 00 Route: PO, Drug form: CAP, Q7D, Dosing Weight 90.909, kg, Start date: 02/07/19 13:16:00 CDT, Duration: 30 day, Stop date: 04/04/19 9:00:00 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, 0 Ativan 0 No Notes: Memoria 02-07 (Same as: l 17:00: Ativan) Calcium 0 No Notes: Memoria Carbonate 02-06 (calcium l 1250 MG / 22:00: carbonate- He ann Cholecalcif 00 vit D alpa 400 500mg-400u [...] Stop date: 03/08/19 11:19:00 CDT, 0 sterile 0 No 2.1 mL, Memoria water 02-06 Route: l 16:17: MISC, Drug [place] Form: INJ, BID, PRN, Start date: 02/06/19 11:17:00 CDT, Duration: 30 day, Stop date: 03/08/19 11:16:00 CDT, For Zyprexa reconstitu tion, 0 olanzapine 0 No 10 mg, Memor ia 9-08 Route: IM, l 16:07: Drug form: INJ, BID, Dosing Weight 90.909, kg, PRN Agitation, Start date: 02/06/19 11:07:00 CDT, Duration: 30 day, Stop date: 03/08/19 11:06:00 CDT, 0 Sertraline No Notes: Memor ia 02-06 (Same as: l 14:00: Zoloft) Furosemide No Notes: Memor ia 40 MG Oral 02-06 (Same as: l Tablet 14:00: Lasix) Jorge [...] Stop date: 03/07/19 16:38:00 CDT, 0 Glucagon 2019-0 No 1 mg, Memoria 02-05 Route: IM, l 21:39: Drug form: PDR/INJ, PRN, Dosing Weight 90.909, kg, PRN Blood Glucose Results, Start date: 02/05/19 16:39:00 CDT, Duration: 30 day, Stop date: 03/07/19 16:38:00 CDT, 0 Insulin 2019-0 No Notes: Memoria regular 02-05 (Same as: l 21:39: Humulin R) Roll in palms of hands gently; Do not shake vigorously . WASTE: F/P - Black; E - Variable Trash Bin Stable for 31 days at room temperatur e Expires in days from ____Date Mestinon 2019-0 No Notes: Memoria 02-05 (Same as: l 21:00: Mestinon) Prednisone 2018-0 No 30 mg, 3 Mem oria 02-05 tab, l 19:40: Route: PO, Drug form: TAB, Daily, Dosing Weight 90.909, kg, Priority: NOW, Start date: 02/05/19 14:40:00 CDT, Duration: 30 day, Stop date: 03/07/19 9:00:00 CDT, 0 insulin 2019-0 Yes 12 unit, Memori a lispro 100 8-12 SUB-Q, l units/mL 19:35: TID-Before Her restrepo injectable 00 Meals, 0 solution Refill(s) Insulin 2019-0 Yes 34 unit, Memori a Glargine 8-12 SUB-Q, l 100 UNT/ML 12:01: Daily, 0 Her restrepo Injectable 00 Refill(s) Solution [Lantus] Furosemide 2018- Yes 40 mg = 1 Me moria 40 MG Oral 8-12 tab, PO, l Tablet 12:01: BID [place] [Lasix] 00 Diuretic, 0 Refill(s) Furosemide No Notes: Memor ia 40 MG Oral 812 (Same as: l Tablet 11:00: Lasix) [place] [Lasix] 00 May cause GI upset. Give with food or milk. Furosemide No Notes: Memor ia 8-10 (Same as: l 11:00: Lasix) Jorge Alberto MEDICATION WASTE Product Size: 40 mg Product Wasted: ___ mg Sodium No Notes: SEE Memor ia Chloride 3% 01-07 RT l inhalation 01:37: DOCUMENTAT H ermann solution 00 ION (Same as: Hypertonic Saline 3%, Inhalation ) Furosemide No Notes: Memor ia 07 (Same as: l 16:00: Lasix) Jorge Alberto MEDICATION WASTE Product Size: 40 mg Product Wasted: ___ mg insulin Yes 36 unit, Memori a detemir 100 01-05 SUB-Q, l UNT/ML 14:58: BID, # 15 Berto n Injectable 00 mL, 3 Solution Refill(s), [Levemir] other Lasix No Notes: Memoria 06 (Same as: l 16:15: Lasix) Furosemide No Notes: Memor ia 40 MG Oral 05 (Same as: l Tablet 14:00: Lasix) Jorge Alberto [Lasix] May cause GI upset. Give with food or milk. Amlodipine No Notes: Memor ia 804 (Same as: l 22:00: Norvasc) Ramipril No Notes: Memoria 8-04 (Same l 13:00: as:Altace) ceFAZolin No Notes: Memori a 8-04 (Same as l 11:00: Ancef) Calcium No Notes: Memoria Gluconate 01-01 WASTE: F/P l 14:30: - Sink; E [place] - Municipal Trash Bin predniSONE No 40 mg = 2 Me moria 20 mg oral 01-01 tab, PO, l tablet 14:29: Daily, X Jorge Alberto 00 10 day, # 20 tab, 0 Refill(s), other insulin No 12 unit, Soyori a lispro 100 - SUB-Q, l units/mL 14:29: TID-Before Her restrepo injectable 00 Meals, # solution 10 mL, 0 Refill(s), other insulin No 36 unit, Memori a detemir 100 - SUB-Q, l UNT/ML 14:29: BID, # 30 Berto n Injectable 00 mL, 0 Solution Refill(s), [Levemir] other albumin No Notes: Memoria human 5% 01-01 LOT#: l intravenous 14:27: Jorge Alberto solution 00 ___Mfg:___ ___ (Same as: Albuminar) "blood product derivative " WASTE: F/P - Red; E -Red MEDICATION WASTE Product Size: 25 gm Product Wasted: ___ gm Prednisone No Notes: Memor ia 01-01 Take with l 14:00: food. Jorge Alberto 00 Insulin No 34 unit, Memori a Glargine 01-01 0.34 mL, l 100 UNT/ML 14:00: Route: Gerda nn Injectable 00 SUB-Q, Solution Drug form: [Lantus] SOLN, Daily, Dosing Weight 92, kg, Start date: 01/01/19 9:00:00 CDT, Duration: 30 day, Stop date: 01/30/19 9:00:00 CDT, 0 Insulin No Notes: Memoria Lispro 12-31 (Same as: l 12:30: Humalog) Jorge Alberto [...] in days from ____Date Calcium No Notes: Feli Gluconate 12-30 WASTE: F/P l 15:00: - Sink; E Jorge Alberto 00 - Municipal Trash Bin albumin No Notes: Feli human 5% 12-30 LOT#: l intravenous 14:34: [place] solution 00 ___Mfg:___ ___ (Same as: Albuminar) "blood product derivative " WASTE: F/P - Red; E -Red MEDICATION WASTE Product Size: 25 gm Product Wasted: _0__ gm Thyroxine No Notes: Soyori a 12-30 Take 1 l 11:30: hour [...] date: 01/29/19 0:38:00 CDT phenol No Notes: Soyoria 12-30 Chlorasept l 05:37: ic [place] Jorge Alberto (Same as: Chlorasept ic, Sore Throat [place]) WASTE: F/P - Black; E - Municipal [...] ia isophane 7-31 Route: l 16:00: SUB-Q, [place] 00 Q24H, Dosing Weight 92, kg, Start [...] Not Crush) sennosides, No Notes: Kalia aida SENIOR CARE 8.6 MG 7-31 (Same as: l Oral Tablet 14:00: [facility]) [facility] No Notes: Memor ia [...] Syringe 12-27 25 mL, l 20:14: Route: [place] 00 IVP, Drug Form: INJ, Dosing Weight 92, kg, PRN, PRN Blood Glucose Results, Start date: 12/27/18 15:14:00 CDT, Duration: 30 day, Stop date: 01/26/19 15:13:00 CDT, 0 Glucagon No 1 mg, Memoria 12-27 Route: IM, l 20:14: Drug form: [place] 00 PDR/INJ, PRN, Dosing Weight 92, kg, PRN Blood Glucose Results, Start date: 12/27/18 15:14:00 CDT, Duration: 30 day, Stop date: 01/26/19 15:13:00 CDT, 0 Insulin No Notes: Memoria regular - (Same as: l 20:14: Humulin R) [place] 00 Roll in palms of hands gently; Do not shake vigorously . WASTE: F/P - Black; E - Municipal Trash Bin Stable for 31 days at room temperatur e Expires in days from ____Date insulin, No Notes: Memoria isophane - (Same as: l 14:44: Humulin N) Jorge Alberto Roll in palms of hands gently; Do not shake vigorously . WASTE: F/P - Black; E - Municipal Trash Bin Stable for 31 days at room temperatur e Expires in days from ____Date Zithromax No Notes: Memori a 250 mg oral 7-29 Take 1 l tablet 14:00: hour [place] 00 before or 2 hours after meals. (Same As: Zithromax) Lanolin No Notes: Memoria 0.157 MG/MG 12-27 (Same as: l / Menthol 05:46: Calmosepti He rmann 0.0044 00 ne) MG/MG / Petrolatum 0.24 MG/MG / Zinc Oxide 0.206 MG/MG Topical Ointment Famotidine No Notes: Memor ia 12-27 (Same as: l 03:00: Pepcid) [place] 00 Midodrine No Notes: Memori a 12-26 (Same l 22:00: as:Proamat Jorge Alberto 00 ine) albumin No Notes: Memoria human 5% 12-26 LOT#: l intravenous 14:08: Jorge Alberto solution 00 ___ Mfg: WASTE: F/P - Red; E -Red (Same as: Albuminar) "blood product derivative " Midodrine No Notes: Memori a 12-26 (Same l 14:00: as:Proamat Jorge Alberto 00 ine) azithromyci No Notes: Kalia aida n 500 mg 12-26 Take 1 l oral tablet 14:00: hour Berto n 00 before or 2 hours after meals. (Same As: Zithromax) Calcium No 3 gm, Memoria Gluconate 12-26 Route: IV, l 14:00: Continuous [place] , Dosing Weight 92, kg, Start date: 12/26/18 9:00:00 CDT, Duration: 30 day, Stop date: 01/25/19 8:59:00 CDT albumin No 2.25 Memoria human 5% 12-26 Liter, l intravenous 13:41: Route: IV, [place] solution 00 Dosing Weight 92, kg, ONCE, [...] line. Insulin No Notes: Memoria regular 100 28 Final l unit + 01:23: Concentrat Gerda nn 00 ion 1unit/1ml WASTE: F/P - Black; E - Municipal Trash Bin Dextrose No 6.25 gm, Memor ia 50% Syringe 12-26 12.5 mL, l 01:23: Route: [place] 00 IVP, Drug Form: INJ, Dosing Weight 92, kg, PRN, PRN Abnormal Lab Result, Start date: 12/25/18 20:23:00 CDT, Duration: 30 day, Stop date: 01/24/19 20:22:00 CDT, 0 Famotidine No Notes: Memor ia 12-25 (Same as: l 22:00: Pepcid) Jorge Alberto Mestinon No Notes: Memoria 12-25 (Same as: l 21:00: Mestinon) [place] 00 Sodium No Notes: SEE Memor ia Chloride 3% 12-25 RT l inhalation 20:00: DOCUMENTAT H ermann solution 00 ION (Same as: Hypertonic Saline 3%, Inhalation ) fondaparinu No Notes: Kalia aida x 12-25 (Same as: l 17:00: Arixtra) Jorge Alberto 00 Albuterol 1 No Notes: SEE Memoria MG/ML 12-25 RT l Inhalant 16:11: DOCUMENTAT Her restrepo Solution 00 ION (Same as: Proventil) Calcium No Notes: Memoria Gluconate 12-25 WASTE: F/P l 16:00: - Sink; E Jorge Alberto 00 - Municipal Trash Bin albumin No Notes: Memoria human 5% 12-25 LOT#: l intravenous 15:35: Jorge Alberto solution 00 ___Mfg:___ ___ (Same as: Albuminar) "blood product derivative " WASTE: F/P - Red; E -Red MEDICATION WASTE Product Size: 25 gm Product Wasted: ___ gm Prednisone No Notes: Memor ia 7- Take with l 14:00: food. [place] 00 Thyroxine No Notes: Memori a 7-27 Take 1 l 11:30: hour 00 before or 2 hours after meal; [...] tab, PO, l Tablet 04:55: Daily, 0 [place] 00 Refill(s) rosuvastati No 20 mg = 1 M emoria n 20 mg - tab, PO, l oral tablet 04:55: Bedtime, 0 [place] 00 Refill(s) ramipril 10 Yes 10 mg = 1 M emoria mg oral 12-25 cap, PO, l capsule 04:55: Daily, 0 Berto n 00 Refill(s) Amlodipine Yes 10 mg, PO, M emoria 12-25 Daily, 0 l 04:55: Refill(s) [place] 00 Furosemide No 80 mg, PO, M emoria 12-25 Daily, 0 l 04:55: Refill(s) Potassium Yes 20 mEq, Memor ia Chloride - PO, Daily, l 04:55: 0 Jorge Alberto 00 Refill(s) Pyridostigm Yes 60 mg, PO, Memoria ine 12-25 Q8H, 0 l 04:55: Refill(s) Jorge Alberto 00 sertraline Yes 25 mg = 1 Me moria 25 mg oral 7-27 tab, PO, l tablet 04:55: Daily, 0 Jorge Alberto 00 Refill(s) Thyroxine Yes 88 Memoria 7- microgram, l 04:55: PO, Daily, Jorge Alberto 00 0 Refill(s) Alendronic Yes 70 mg [...] 02:00: Colace) sennosides, No Notes: Kalia aida SENIOR CARE 8.6 MG 7-27 (Same as: l Oral Tablet 02:00: Senokot) [facility] Ceftriaxone No Notes: Memoria 7-27 MEDICATION l 02:00: WASTE Product Size: 2000 mg Product Wasted: ___ mg Albuterol No Notes: Memori a 0.833 MG/ML 7-27 (Same as: l / 01:57: Duoneb) Ipratropium 00 [place] 0.167 MG/ML Inhalant Solution [DuoNeb] chlorhexidi No [...] phosphate 7-26 Infuse l 23:37: over 4 [place] 00 hour. Do not infuse phosphorou s [...] hours potassium No Notes: Memori a phosphate-s -26 (Same as: l odium 23:37: Phos-NaK) phosphate Each 1.5 250 mg-280 gm pkt has mg-160 mg 250mg oral powder phosphorou for s. Mix reconstitut w/2.5oz ion water and stir. Magnesium No Notes: Memori a Sulfate 12-24 WASTE: F/P l 23:37: - Sink; E - Municipal Trash Bin Magnesium No Notes: Memori a Oxide 12-24 (Same as: l 23:37: Mag-Ox Jorge Alberto 00 400) Magnesium oxide 705il=893l g elemental magnesium Dose=____m g magnesium oxide (___mg elemental magnesium) Calcium No Notes: Memoria Gluconate 12-24 WASTE: F/P l 23:37: - Sink; E [place] - Municipal Trash Bin Calcium No Notes: Memoria Carbonate 12-24 (Same As: l 500 MG 23:37: Tums) Jorge Alberto Calcium Tablet Carbonate 500 mg = 200 mg elemental calcium Dose = mg calcium carbonate ( mg elemental calcium) Dextrose No 12.5 gm, Memor ia 50% Syringe 12-24 25 mL, l 23:37: Route: Jorge Alberto IVP, Drug Form: INJ, Dosing Weight 102.273, kg, PRN, PRN Blood Glucose Results, Start date: 12/24/18 18:37:00 CDT, Duration: 30 day, Stop date: 01/23/19 18:36:00 CDT, 0 Glucagon No 1 mg, Memoria 12-24 Route: IM, l 23:37: Drug form: [place] PDR/INJ, PRN, Dosing Weight 102.273, kg, PRN Blood Glucose Results, Start date: 12/24/18 18:37:00 CDT, Duration: 30 day, Stop date: 01/23/19 18:36:00 CDT, 0 chlorhexidi No Notes: Kalia aida ne 12-24 (Same As: l gluconate 23:37: Peridex) Herm mercy 1.2 MG/ML 00 Mouthwash Insulin No Notes: Memoria regular 12-24 Roll in l 23:37: palms of [place] hands gently; do not shake vigorously . (Same as: Humulin R) WASTE: F/P - Black; E - Municipal Trash Bin Stable for 31 days at room temperatur e Expires in days from Norepinephr No Notes: Not Memoria ine 7- for direct l 23:37: administra Jorge Alberto [...] a 11-29 (Same as: l 14:35: Motrin) [place] 00 "Do Not Crush" Give with food. Tylenol No Notes: Max Kalia aida 11-29 acetaminop l 14:32: hen 4000 Jorge Alberto 00 mg/day (4 gm/day). (Same as: Tylenol Extra Strength) Pyridostigm Pyridostigm Yes SUUR TAKE 1 [facility] [place] ine [place] 6-25 BILICILER TABLET BY ity of 60 [...] Memoria 4-25 (Same as: l 17:00: Mestinon) [place] 00 Insulin No Notes: Memoria Lispro 4-25 [...] 14:00: Pepcid) sennosides, No Notes: Kalia aida SENIOR CARE 8.6 MG 4-24 (Same as: l Oral [...] MG / 14:00: Senokot-S) noside Equiv. to SENIOR CARE 8.6 MG [place] Oral Tablet e. Levothroid [...] MG HCl - 2 MG 4-23 KESER MKaelDKael TABLET AT ity of Oral Tablet Oral Tablet 00:00: BEDTIME. [place] 00 Physici ans Occupationa Yes See Memori a l Therapy 09-19 Instructio l 16:48: ns, MISC, [place] 00 ONCALL, Evaluate and Treat __3_ times per week for __4__ weeks, # 1 bag, 0 Refill(s) Physical Yes See Memoria Therapy 09-19 Instructio l 16:48: ns, MISC, Jorge Alberto 00 ONCALL, Evaluate and Treat _3__ times per week for __4__ weeks, # 1 bag, 0 Refill(s) Ramipril No Notes: Memoria 4-21 (Same l 15:56: as:Altace) Jorge Alberto 00 Furosemide Yes 20 mg = 1 Me moria 20 MG Oral 4-21 tab, PO, l Tablet 15:44: Every Jorge Alberto 00 Other Day, # 15 tab, 3 Refill(s) amLODIPine Yes 10 mg = 1 Me moria 10 mg oral 4-21 tab, PO, l tablet 15:44: Daily, # [place] 00 30 tab, 3 Refill(s) predniSONE Yes 60 mg = 3 Me moria 20 mg oral 4-21 tab, PO, l tablet 15:44: Daily, X [place] 00 30 day, # 90 tab, 0 [...] sennosides, Yes 8.6 mg = 1 Memoria SENIOR CARE 8.6 MG 4-21 tab, PO, l Oral Tablet 15:44: BID, X 30 H ermann 00 day, # 60 tab, 3 Refill(s) sertraline Yes 25 mg = 1 Me moria 25 mg oral 4-21 tab, PO, l tablet 15:44: Q24H, # 30 Gerda nn 00 tab, 0 Refill(s) insulin, 2019-0 No Notes: Memoria isophane 4-20 (Same as: l 22:00: Humulin N) [place] 00 Roll in palms of hands gently; [...] CDT, Stop date: 09/18/18 0:54:00 CDT normal 2018-0 No 1,000 mL, Memori a saline 0.9% -20 Rate: 75 l IV 1,000 mL 05:54: [...] n 00 30 cap, 1 Refill(s), Pharmacy: [facility] #[id number] metoprolol 2019-0 No 25 mg = 1 Me moria tartrate 25 4-19 tab, PO, l mg oral 23:56: Q12H, # 60 Herm mercy tablet 00 tab, 1 Refill(s), Pharmacy: [id number] Furosemide 2019-0 No 20 mg = 1 Me moria 20 MG Oral 4-19 tab, PO, l Tablet 23:56: Every [place] 00 Other Day, # 30 tab, 1 Refill(s), Pharmacy: [facility] #[id number] amLODIPine 2019-0 No 10 mg = 1 Me moria 10 mg oral 4-19 tab, PO, l tablet 23:56: Daily, # [place] 00 30 tab, 1 Refill(s), Pharmacy: [facility] #[id number] sertraline 2018-0 No 25 mg = 1 Me moria 25 mg oral 4-19 tab, PO, l tablet 23:56: Q24H, # 30 Gerda nn 00 tab, 1 Refill(s), Pharmacy: [facility] #[id number] sennosides, 2019-0 No 8.6 mg = 1 Memoria SENIOR CARE 8.6 MG 4-19 tab, PO, l Oral Tablet 23:56: BID, # 60 H ermann 00 tab, 0 Refill(s), Pharmacy: [facility] #[id number] pyridostigm 2018-0 No 60 mg = 1 M emoria ine 60 mg 4-19 tab, PO, l oral tablet 23:56: Q8Hnow, # H ermann 00 90 tab, 1 Refill(s), Pharmacy: [facility] #[id number] predniSONE 2018-0 No 60 mg = 3 Me moria 20 mg oral 4-19 tab, PO, l tablet 23:56: Daily, # Jorge Alberto 00 30 tab, 1 Refill(s), Pharmacy: [facility] #[id number] Insulin 2018-0 No Notes: Memoria regular -19 (Same as: l 23:52: Humulin R) [place] 00 Roll in palms of hands gently; [...] mL, Route: l Water 23:52: IVP, Drug [place] (bolus) IV 00 Form: INJ, Dosing Weight 91.378, kg, PRN, PRN Blood Glucose Results, Start date: 09/17/18 18:52:00 CDT, Duration: 30 day, Stop date: 10/17/18 18:51:00 CDT Melatonin No 1 mg, Memoria 0.25 mg/mL 09-17 Route: PO, l oral liquid 02:00: Dosing Herm mercy 00 Weight 91.378, kg, Bedtime, Start date: 09/16/18 21:00:00 CDT, Duration: 30 day, Stop date: 10/15/18 21:00:00 CDT insulin, No Notes: Memoria isophane 4-18 (Same as: l 15:30: Humulin N) Jorge Alberto Roll in palms [...] l solution 05:53: PO, Drug Gerda nn Form: LIQ, Dosing Weight 91.378, kg, ONCE, STAT, Start date: 09/16/18 0:53:00 CDT, Stop date: 09/16/18 0:53:00 CDT insulin, No Notes: Memoria isophane 4-18 (Same as: l 05:00: Humulin N) Jorge Alberto Roll in palms of hands gently; Do not shake vigorously . WASTE: F/P - Black; E - Municipal Trash Bin Stable for 31 days at room temperatur e Expires in days from ____Date Insulin No Notes: Memoria regular 4-18 (Same as: l 01:34: Humulin R) [place] Roll in palms of hands gently; Do [...] e 4-17 Take 1 l 14:00: hour [place] 00 before or 2 hours after meal; Expires in 14 days. Shake well before use. (Same as:Prevaci d) Compound ed Product - formulatio n not commercial ly available* * insulin, No Notes: Memoria isophane 4-17 (Same as: l 05:00: Humulin N) Jorge Alberto 00 Roll in palms of hands gently; Do not shake vigorously . WASTE: F/P - Black; E - Municipal Trash Bin Stable for 31 days at room temperatur e Expires in days from ____Date Saline No Notes: Memoria Flush 0.9% 4-17 (Same as: l 02:00: BD Jorge Alberto 00 Posiflush) Lasix No Notes: Memoria 4-17 (Same as: l 02:00: Lasix) [place] 00 MEDICATION WASTE Product Size: 40 mg Product Wasted: ___ mg docusate No Notes: Memoria sodium 100 4-16 (Same as: l mg oral 22:00: Colace) Jorge Alberto capsule 00 (Do Not Crush) sennosides, No Notes: Kalia aida SENIOR CARE 4-16 (Same as: l 22:00: Senokot) Jorge Alberto 00 insulin, No Notes: Memoria isophane 4-16 (Same as: l 21:22: Humulin N) [place] 00 Roll in palms of hands gently; Do not shake vigorously . WASTE: F/P - Black; E - Municipal Trash Bin Stable for 31 days at room temperatur e Expires in days from ____Date Insulin No Notes: Memoria regular 4-16 (Same as: l 21:20: Humulin R) [place] 00 Roll in palms of hands gently; Do not shake vigorously . WASTE: F/P - Black; E - Municipal Trash Bin Stable for 31 days at room temperatur e Expires in days from ____Date Glucagon No 1 mg, Memoria 4-16 Route: IM, l 21:20: Drug form: Jorge Alberto 00 PDR/INJ, PRN, Dosing Weight 91.378, kg, PRN Blood Glucose Results, Start date: 09/14/18 16:20:00 CDT, Duration: 30 day, Stop date: 10/14/18 16:19:00 CDT Dextrose No 12.5 gm, Memor ia 50% Syringe 4-16 25 mL, l 21:20: Route: [place] IVP, Drug Form: INJ, Dosing Weight 91.378, kg, PRN, PRN Blood Glucose Results, Start date: 09/14/18 16:20:00 CDT, Duration: 30 day, Stop date: 10/14/18 16:19:00 CDT Saline No Notes: Memoria Flush 0.9% -16 (Same as: l 16:01: BD Jorge Alberto 00 Posiflush) Nystatin No Notes: Memoria 100 UNT/MG -16 (Same l Topical 16:01: as:Mycosta Herm mercy Powder 00 tin, Nilstat) For external use only. Amlodipine No Notes: Memor ia -16 (Same as: l 14:00: Norvasc) Lasix No Notes: Memoria 4-16 (Same as: l 13:45: Lasix) MEDICATION WASTE Product Size: 40 mg Product Wasted: ___ mg Albuterol No Notes: Memori a 0.833 MG/ML -16 (Same as: l / 12:48: Duoneb) Ipratropium 00 [place] 0.167 MG/ML Inhalant Solution [DuoNeb] Potassium No Notes: Memori a Chloride 4-16 (Same as: l 1.33 MEQ/ML 07:31: Potassium H ermann Oral 00 Chloride) Solution Sertraline No Notes: Memor ia 4-16 (Same as: l 02:00: Zoloft) Jorge Alberto 00 Immunoglobu No 25 gm, Kalia aida lawanda [...] being intubated (unless the nurse is a ELECTRICAL TECH). Same as: Diprivan Rocuronium No Notes: Memor ia 4-15 (Same as: l 11:01: Zemeron) [place] 00 Fentanyl No Notes: Memoria 4-15 (Same as: l 11:01: Sublimaze) [place] Preservat kimberly free. Propofol No Notes: If Kalia aida 4-15 Diprivan - l 11:01: change Jorge Alberto 00 bottle & tubing every 12 hr Per state nursing law propofol can only be given by a nurse if patient is intubated or being intubated (unless the nurse is a ELECTRICAL TECH). Same as: Diprivan ocular No Notes: Memoria [...] Syringe -15 12.5 mL, l 06:52: Route: [place] 00 IVP, Drug Form: INJ, Dosing Weight [...] 4-15 IVPB, Drug l empty 02:00: form: [place] container 1 00 SOLN, bag Bedtime, Start [...] ine 4-15 (Same as: l 00:09: Mestinon) [place] 00 Calcium No Notes: Memoria Carbonate 4-14 (Same As: l 500 MG 21:44: Tums) [place] Chewable 00 Calcium Tablet Carbonate 500 mg = 200 mg elemental calcium Dose = mg calcium carbonate ( mg elemental calcium) Calcium No Notes: Memoria Gluconate -14 WASTE: F/P l 21:44: - Sink; E Jorge Alberto 00 - Municipal Trash Bin Magnesium No Notes: Memori a Oxide -14 (Same as: l 21:44: Mag-Ox Jorge Alberto 00 400) Magnesium oxide [id number]=[id number] g elemental magnesium Dose=____m g magnesium oxide (___mg elemental magnesium) Magnesium No Notes: Memori a Sulfate 09-12 WASTE: F/P l 21:44: - Sink; E Jorge Alberto 00 - Municipal Trash Bin potassium No Notes: Memori a phosphate-s - (Same as: l odium 21:44: K-Phos [place] phosphate 00 Neutral, 250 mg-280 Phospha mg-160 [...] s with feeding tube less than 14 Indian (Dobhoff, J-tube etc) and pediatric and patients. sodium No Notes: Memoria phosphate -14 Infuse l 21:44: over 4 [place] 00 hour. Do not infuse phosphorou s [...] gel -14 (Same As: l 21:38: Maximum Jorge Alberto 00 Strength PM Orajel ) Immunoglobu No 75 gm, Kalia aida lawanda G 4-14 Route: IV, l 17:00: Drug form: INJ, [...] / 14:00: Senokot-S) sennosides, 00 Equiv. to [facility] 8.6 MG Cassidy-Colac Oral Tablet e. Furosemide [...] sodium, 4-13 porcine l porcine 02:00: heparin [place] 2500 UNT/ML 00 Injectable Solution Lacri-Lube No [...] 4 mg Product Wasted: ___ mg Immunoglobu 0 No 36 gm, Kalia aida lawanda G 4-12 Route: l 21:42: IVPB, Drug form: SOLN, Daily, Dosing Weight 91.378, kg, Start date: 09/10/18 16:42:00 CDT, Duration: 5 day, Stop date: 09/15/18 9:00:00 CDT, Indication : Other see comments Insulin No 60 Memoria regular 4-12 units) l 13:17: WASTE: F/P [place] - Black; E - Municipal Trash Bin Stable for 28 days at room temperatur e Expires in days from ____Date Glucagon No 1 mg, Memoria 4-12 Route: IM, [...] Saline 0 No Notes: Memoria Flush 0.9% -12 (Same as: l 05:20: BD [place] 00 Posiflush) Dextrose 5% No 1,000 mL, M emoria with 0.9% 4-12 Rate: 75 l NaCl [...] (Same capsular as: antigen Prevnar diphtheria 13) [id number] protein conjugate vaccine / Streptococc us pneumoniae serotype 14 capsular antigen diphtheria [id number] protein conjugate vaccine / Streptococc us pneumoniae serotype 18C capsular antigen d insulin No Notes: Memoria glargine 4-12 (Same as: l 03:00: Lantus) Do Jorge Alberto not hold insulin without contacting prescriber WASTE: [...] No 1,000 mL, Mem oria 1,000 mL - Rate: 75 l 12:53: ml/hr, [place] Infuse over: 13.3 hr, Route: IV, Dosing Weight 94.3 kg, Total Volume: 1,000, Start date: 09/09/18 7:53:00 CDT, Duration: 30 day, Stop date: 10/09/18 7:52:00 CDT, 2.02, m2 Acyclovir No Notes: Me moria 4-11 MEDICATION l 01:00: WASTE [place] 00 Product Size: 500 mg Product Wasted: _0__ mg 0.5 ML 2019-0 Yes SUB-Q, Memoria dulaglutide 4-10 every l 3 MG/ML 23:50: Khang, 0 Gerda nn Prefilled 00 Refill(s) Syringe [Trulicity] Insulin 2018- Yes 20 unit, Soyori a Glargine 4-10 SUB-Q, l 100 UNT/ML 23:50: Bedtime, # H ermann Injectable 00 3 mL, 3 Solution Refill(s) heparin No Notes: Memoria 4-10 porcine l 21:00: heparin [place] 00 Dextrose 2018- No 12.5 gm, Memor ia 50% Syringe 4-10 25 mL, l 14:49: Route: Jorge Alberto 00 IVP, Drug Form: INJ, Dosing Weight 94.3, kg, PRN, PRN Blood Glucose Results, Start date: 09/08/18 9:49:00 CDT, Duration: 30 day, Stop date: 10/08/18 9:48:00 CDT Glucagon 2018- No 1 mg, Memoria 4-10 Route: IM, l 14:49: Drug form: [place] PDR/INJ, PRN, Dosing Weight 94.3, kg, PRN [...] # Jorge Alberto 00 90 tab, 3 Refill(s), Pharmacy: [facility] [id number] rosuvastati Yes 20 mg = 2 M emoria n 10 mg 3-22 tab, PO, l oral tablet 00:09: Bedtime, # [place] 00 180 tab, 3 Refill(s) ramipril 5 2019- Yes 10 mg = 2 Me moria mg oral 3-22 cap, PO, l capsule 00:09: Q24H, # [place] 00 180 cap, 3 Refill(s) Insulin 2019-0 Yes 20 unit, Memori a Glargine 3-22 SUB-Q, l 100 UNT/ML 00:09: QPM, # 15 He rmann Injectable 00 mL, 3 Solution Refill(s) Furosemide 2018- Yes 20 mg = 1 [...] ia 350 3-21 Route: l 13:49: INTRAARTER [place] 00 IAL, Dosing Weight 111.6, kg, ONCE, [...] 20:30: as:Altace) Amlodipine No Notes: Memor ia -19 (Same as: l 20:30: Norvasc) loperamide No [...] 17:24: Plavix) benzonatate No Notes: Kalia aida -19 (Same As: l 17:18: Tessalon Perles) "Do Not Crush" Insulin No 60 Memoria regular 3-19 units) l 14:05: WASTE: F/P Jorge Alberto 00 - Black; E - Municipal Trash Bin Stable for 28 days at room temperatur e Expires in days from ____Date 3 ML 0 No 40 unit, Memoria Insulin 3-19 SUB-Q, l Glargine 08:49: Bedtime, # Her restrepo 100 UNT/ML 00 3 mL, 3 Prefilled Refill(s) Syringe [Lantus] Insulin No 60 Memoria regular 3-19 units) l 08:18: WASTE: F/P [place] 00 - Black; E - Municipal Trash Bin Stable for 28 days at room temperatur e Expires in days from ____Date Dextrose 2019-0 No 12.5 gm, Memor ia 50% in 3-19 25 mL, l Water 07:18: Route: Jorge Alberto (bolus) IV 00 IVP, Drug Form: INJ, Dosing Weight 113.636, kg, PRN, PRN Blood Glucose Results, Start date: 08/17/18 2:18:00 CDT, Duration: 30 day, Stop date: 09/16/18 2:17:00 CDT Glucagon 2019-0 No 1 mg, Memoria 08-17 Route: IM, l 07:18: Drug form: [place] 00 PDR/INJ, PRN, Dosing Weight 113.636, kg, PRN Blood Glucose Results, Start date: 08/17/18 2:18:00 CDT, Duration: 30 day, Stop date: 09/16/18 2:17:00 CDT Bisacodyl 2019-0 No Notes: Memori a -19 (Same As: l 06:06: Dulcolax, Jorge Alberto Bisco-Lax) Labetalol 2019-0 No 20 mg, 4 Kalia aida 3-19 mL, Route: l 04:38: IVP, Drug form: INJ, Q10Min, Dosing Weight 113.636, kg, PRN Hypertensi on, Start date: 08/16/18 23:38:00 CDT, Duration: 30 day, Stop date: 09/15/18 23:37:00 CDT iodixanol 2019-0 No 60 mL, Memori a - Route: l 01:39: IVP, Drug Form: SOLN, [...] l 14:00: Hernán Route: PO, Gerda nn Drug form: TAB, BID, Start date: 03/25/11 9:00:00, Duration: 30 day, Stop date: 04/23/11 17:00:00 hydrALAZINE 2010-06 No Allen 10 mg, 0.5 Memoria 0-24 Angelito mL, Route: l 23:14: Hernán IV, Drug Jorge Alberto form: INJ, Q4H, PRN Elevated BP, Start [...] Angelito Rate: 100 l 22:56: Hernán ml/hr, [place] 00 Infuse over: 10 hr, Route: IV, Total Volume: 1,000, Start date: 03/24/11 17:56:00, Duration: 30 day, Stop date: 04/23/11 17:55:00 Novolin N 2010-06 No Allen 10 unit, Mem oria 0-24 Angelito 0.1 mL, l 14:00: Hernán Route: Jorge Alberto 00 SUB-Q, Drug form: INJ, BID, Start date: 03/24/11 9:00:00, Duration: 30 day, Stop date: 04/22/11 17:00:00 [place] 2010-06 No Allen 120 mg, 2 Memor [...] Duration: 30 day, Stop date: 04/22/11 7:36:00 [place] 2010-06 No Allen 120 mg, Memoria Thyroid 0-23 Angelito 0.5 tab, l 12:30: Hernán Route: PO, Gerda nn Drug form: TAB, Before Breakfast, Start date: 03/23/11 7:30:00, Duration: 30 day, Stop date: 04/21/11 7:30:00 heparin 2010-06 No Allen 5,000 Memoria 0-23 Angelito unit, 1 l 02:00: Hernán mL, Route: Gerda nn SUB-Q, Drug form: INJ, Q12H, Start date: 03/22/11 21:00:00, Duration: 30 day, Stop date: 04/21/11 9:00:00 Crestor 2010-06 No Allen 20 mg, 2 Memor ia 0-23 Angelito tab, l 02:00: Hernán Route: PO, Gerda nn Drug form: TAB, Bedtime, Start date: 03/22/11 21:00:00, Duration: 30 day, Stop date: 04/20/11 21:00:00 Keppra 500 2010-06 No Allen 500 mg, 1 M emoria mg oral 0-23 Angelito tab, l tablet 02:00: Hernán Route: PO, Her restrepo 00 Drug form: TAB, Q12H, Start date: 03/22/11 21:00:00, Duration: 30 day, Stop date: 04/21/11 9:00:00 Draper 5/325 2010-06 No Allen 1 tab, Mem [...] ea, Route: l 22:00: Hernán PO, Drug [place] 00 form: TAB, BID, Start date: 03/22/11 [...] Angelito Rate: 50 l 21:57: Hernán ml/hr, [place] 00 Infuse over: 20 hr, Route: IV, Total Volume: 1,000, Start date: 03/22/11 16:57:00, Duration: 30 day, Stop date: 04/21/11 16:56:00 insulin 2010-06 No Allen 3 unit, Memori a aspart 0-22 Angelito 0.03 mL, l 21:28: Hernán Route: Jorge Alberto 00 SUB-Q, Drug [...] Dumont mL, Route: l 15:12: IVP, Drug [place] 00 form: INJ, ONCE, Priority: STAT, Start date: 03/22/11 10:12:00, Stop date: 03/22/11 10:12:00 morphine 2010-06 No Martha 4 mg, 1 Me moria Sulfate 0-22 Dumont mL, Route: l 15:11: IVP, Drug [place] 00 form: INJ, ONCE, Priority: STAT, Start [...] tab, l tablet 14:00: [place] Route: PO, Jorge Alberto 00 Drug Form: TAB, Daily, Start date: 03/14/11 9:00:00, Duration: 30 day, Stop date: 04/12/11 9:00:00 metoprolol 2010-06 No Darcy 12.5 mg, 1 Memoria 0-14 Jeane ea, Route: l 14:00: Ash PO, Drug Gerda nn 00 form: TAB, BID, Start date: 03/14/11 9:00:00, Duration: 30 day, Stop date: 04/12/11 17:00:00 Crestor 2010-06 No Darcy 20 mg, 2 Memoria 0-14 Jeane tab, l 14:00: Ash Route: PO, Her restrepo 00 Drug form: TAB, Daily, Start date: 03/14/11 9:00:00, Duration: 30 day, Stop date: 04/12/11 9:00:00 Keppra 500 2010-06 No Darcy 500 mg, 1 Memoria mg oral 0-14 Jeane tab, l tablet 14:00: [place] Route: PO, H ermann 00 Drug form: [...] l mg oral 14:00: Ash Route: PO, [place] capsule 00 Drug form: CAP, BID, Start date: 03/14/11 9:00:00, Duration: 30 day, Stop date: 04/12/11 17:00:00 calcium 2010-06 No Darcy 500 mg, 1 Memoria carbonate 0-14 Jeane tab, l 14:00: Ash Route: PO, Her restrepo 00 Drug form: CHEWTAB, TID, Start date: 03/14/11 9:00:00, Duration: 30 day, Stop date: 04/12/11 17:00:00 heparin 2010-06 No Daryc 5,000 Mem oria 0-14 Jeane unit, 1 l 13:00: Ash mL, Route: Her restrepo 00 SUB-Q, Drug form: INJ, Q8H, Start date: 03/14/11 8:00:00, Duration: 30 day, Stop date: 04/13/11 0:00:00 ciprofloxac 2010-06 No Darcy 750 mg, 3 Memoria in 0-14 Jeane tab, l 12:00: Ash Route: PO, Her restrepo 00 Drug form: TAB, [id number], Start date: 03/14/11 7:00:00, Duration: 30 day, Stop date: 04/12/11 19:00:00 cefepime 2010-06 No Darcy 2 gm, Me moria 0-14 Jeane Route: IV, l 12:00: [place] Drug form: Her restrepo 00 INJ, [id number], Start date: 03/14/11 7:00:00, Duration: 30 day, Stop date: 04/12/11 23:00:00 [place] 2010-06 No Darcy 120 mg, 2 Memoria [...] insulin 2010-06 No Darcy 4 unit, M sudhakar aspart 0-14 Jeane 0.04 mL, l 11:06: Ash Route: [place] 00 SUB-Q, Drug form: SOLN, TID-Before Meals, PRN Blood Glucose Results, Start date: 03/14/11 6:06:00, Duration: 30 day, Stop date: 04/13/11 6:05:00 Draper 5/325 2010-06 No Darcy 1 tab, Memoria oral tablet 0-14 Jeane Route: PO, l 11:02: Ash Drug Form: Her restrepo 00 TAB, Q4H, PRN as needed for pain, Start date: 03/14/11 6:02:00, Duration: 30 day, Stop date: 04/13/11 6:01:00 magnesium 2010-06 No Darcy 2 gm, 50 Memoria sulfate 0-14 Jeane mL, Route: l 11:01: [place] IVPB, Drug Her restrepo 00 form: INJ, ONCE, Total dose = 2 gm, Start date: 03/14/11 6:01:00, Duration: 1 doses or times, Stop date: 03/14/11 6:01:00 Sodium 2010-06 No Natana 1,000 mL, Kalia aida Chloride 0-14 Farmer Rate: l 0.9% 09:12: Burden 1,000 [place] (Bolus) IV 00 ml/hr, 1,000 mL Infuse [...] Farmer Rate: l 0.9% 04:20: Burden 1,000 [place] (Bolus) IV 00 ml/hr, 1,000 mL Infuse [...] Memori a 0-14 on Allowed l 03:35: [place] 07 metFORmin 2010-06 No Substituti Me moria 0-14 on Allowed l 03:35: Jorge Alberto 03 metoprolol 2010-06 No Val 12.5 mg, 1 Memoria 0-07 Caitie ea, Route: l 01:00: Aaron PO, Drug [place] 00 form: TAB, BID, Start date: 03/06/11 20:00:00, Duration: 30 day, Stop date: 04/05/11 8:00:00 metoprolol 2010-06 Yes McCasey R 12.5 mg, Memoria 25 mg oral 0-06 Rizvi 0.5 ea, l tablet 20:26: PO, BID, [place] 19 60 tab, Substituti on Allowed, TAB trazodone 2010-06 Yes McCasey R 50 mg, 1 Memoria 50 mg oral 0-06 Rizvi tab, PO, l tablet 20:24: Bedtime, Jorge Alberto 01 40 tab, Substituti on Allowed, TAB Draper 5/325 2010-06 Yes McCasey R 1 tab, PO, Memoria oral tablet 0-06 Rizvi Q4H, PRN, l 20:23: 40 tab, Jorge Alberto 43 Pain, Substituti on Allowed, Maintenanc e, TAB Novolin N 2010-06 Yes McCasey R 10 unit, Memoria 100 0-06 Rizvi SUB-Q, l units/mL 20:23: BID, 10 Berto n subcutaneou 30 ml, s injection Substituti on Allowed, SUSP [place] 2010-06 Yes McCasey R 120 mg, 2 M emoria Thyroid 60 0-06 Rizvi tab, PO, l mg oral 20:23: Before [place] tablet 07 Breakfast, 60 tab, Substituti on Allowed, TAB Keppra 500 2010-06 Yes [place]asey R 500 mg, 1 Memoria mg oral 0-06 Rizvi tab, PO, l tablet 20:22: Q12H, 60 [place] 39 tab, Substituti on Allowed, TAB Crestor [...] PO, l mg oral 20:21: BID, 30 [place] capsule 19 cap, Substituti on Allowed, CAP [...] No Val 10 mg, 0.5 Kalia aida 0 Caitie tab, l 13:00: Aaron Route: PO, [...] 02-27 Zeider tab, l 13:00: Route: PO, [place] 00 Drug Form: TAB, Daily, Start date: 02/27/11 8:00:00, Duration: 30 day, Stop date: 03/28/11 8:00:00 Lasix 40 mg No McCasey R 20 mg, 0.5 Memoria oral tablet 02-27 Rizvi tab, l 13:00: Route: PO, [place] 00 Drug form: TAB, Daily, Start date: 02/27/11 8:00:00, Stop date: 03/28/11 8:00:00 [place] No Bonnie Jyotsna 120 mg, 2 Memoria Thyroid 02-27 Zeider tab, l 11:30: Route: PO, [place] Drug form: TAB, Before Breakfast, Start date: 02/27/11 6:30:00, Duration: 30 day, Stop date: 03/28/11 6:30:00 Insulin No Chaitanya A 5 unit, Mem oria regular 02-27 Crowe 0.05 mL, l 11:30: Route: [place] 00 SUB-Q, Drug form: SOLN, TID-Before Meals, [...] in 02-27 Zeider tab, l 04:00: Route: PO Jorge Alberto Drug form: TAB, Q12H, Priority: Routine, Start date: 02/26/11 23:00:00, Duration: 30 day, Stop date: 03/28/11 11:00:00 Crestor No Bonnie Jyotsna 20 mg, 2 Memoria 02-27 Zeider tab, l 02:00: Route: PO, Jorge Alberto Drug form: TAB, Daily, Start date: 02/26/11 21:00:00, Duration: 30 day, Stop date: 03/27/11 21:00:00 levetiracet No Bonnie Jyotsna 500 mg, 1 Memoria am 02-27 Zeider tab, l 02:00: Route: PO, [place] 00 Drug form: TAB, Q12H, Start date: 02/26/11 21:00:00, Duration: 30 day, Stop date: 03/28/11 9:00:00 magnesium No Bonnie Jyotsna 400 mg, 1 Memoria oxide 02-27 Zeider tab, l 01:00: Route: PO, [place] Drug form: TAB, BID, Start date: 02/26/11 20:00:00, Duration: 5 day, Stop date: 03/03/11 8:00:00 insulin No Bonnie Jyotsna 10 unit, Memoria isophane-SPECIAL LIBRARIAN 02-27 Zeider 0.1 mL, l H 01:00: [...] 02-27 Crowe tab, l 01:00: Route: PO, [place] Drug form: TAB, BID, Start date: 02/26/11 20:00:00, Stop date: 03/28/11 8:00:00 cefepime No Bonnie Jyotsna 2 gm, Me moria 02-26 Zeider Route: l 23:00: IVPB, Drug Jorge Alberto form: INJ, [id number], Start date: 02/26/11 18:00:00, Duration: 30 day, Stop date: 03/28/11 10:00:00 ondansetron No Bonnie Jyotsna 4 mg, 2 Memoria 02-26 Zeider mL, Route: l 22:39: IVP, Drug [place] form: INJ, ONCE, PRN Nausea & Vomiting, [...] Duration: 30 day, Stop date: 03/28/11 17:38:00 Draper 5/325 No Bonnie Jyotsna 1 tab, Memoria [...] Duration: 30 day, Stop date: 03/28/11 17:38:00 Draper No Bonnie Jyotsna 1 tab, Kalia aida 7.5/325 02-26 Zeider Route: PO, l oral tablet 22:39: Drug Form: [place] 00 TAB, Q4H, PRN Pain, Start date: 02/26/11 17:39:00, Duration: 30 day, Stop date: 03/28/11 17:38:00 Insulin No Bonnie Jyotsna 2 unit, M emoria regular 02-26 Zeider 0.02 mL, l 22:39: Route: SUB-Q, Drug form: SOLN, TID-Before Meals, PRN Blood Glucose Results, Start date: 02/26/11 17:39:00, Duration: 30 day, Stop date: 03/28/11 17:38:00 [place] Yes Katie L 120 mg, 2 M [...] Christianson tab, PO, l 18:39: Daily, 30 Jorge Alberto 49 tab, Substituti on Allowed, TAB docusate Yes Katie L 100 mg, 1 Memoria sodium 100 02-26 Christianson cap, PO, l mg oral 18:39: BID, 30 Jorge Alberto capsule 39 cap, Substituti on Allowed, CAP ciprofloxac Yes Katie L 750 mg, 3 Memoria in 250 mg 02-26 Christianson tab, PO, l oral tablet 18:39: Q12H, 30 He rmann 31 doses or times, Substituti on Allowed, TAB Maxipime 2 Yes Katie L 2 gm, IV, Memoria g injection 02-26 Christianson Q8H, 1 l 18:39: doses or [place] 16 times, Substituti on Allowed calcium Yes Katie L 500 mg, 1 Memoria carbonate 02-26 Christianson tab, PO, l 500 mg oral 18:39: TID, 30 Her restrepo tablet, tab, chewable Substituti on Allowed, CHEWTAB [place] Enema No Skyler 133 ml, Memoria 02-24 Dean Route: ID, l 19:38: Joel Drug Form: Herm mercy 00 JEANNIE, ONCE, Start date: 02/24/11 14:38:00, Stop date: 02/24/11 14:38:00 bisacodyl No Skyler 10 mg, 1 M emoria 02-24 Dean supp, l 19:38: Joel Route: ID, Nikolas law 00 Drug form: SUPP, ONCE, Start date: 02/24/11 14:38:00, Stop date: 02/24/11 14:38:00 magnesium No Magnolia 300 ml, Mem oria citrate 02-24 Manuel Route: PO, l 18:03: Aicha Drug Form: Herm mercy 00 LIQ, ONCE, Start date: 02/24/11 13:03:00, Stop date: 02/24/11 13:03:00 calcium No Val 500 mg, 1 Mem oria carbonate 02-24 Caitie tab, l 18:00: Aaron Route: POGerda nn Drug form: TAB, TID, Start date: 02/24/11 13:00:00, Duration: 7 day, Stop date: 03/03/11 9:00:00 lisinopril No Val 10 mg, 1 M emoria 02-24 Caitie tab, l 16:02: Aaron Route: PO, Gerda Drug form: TAB, ONCE, Priority: NOW, Start date: 02/24/11 11:02:00, Stop date: 02/24/11 11:02:00 lisinopril No Val 10 mg, Mem oria 02-24 Route: PO, l 16:01: Aaron ONCE, Jorge Alberto Start date: 02/24/11 11:01:00, Stop date: 02/24/11 11:01:00 Insulin No Val 3 unit, Memor ia regular 02-23e 0.03 mL, l 21:30: Aaron Route: [place] SUB-Q, Drug form: SOLN, TID-Before Meals, Start date: 02/23/11 16:30:00, Duration: 30 day, Stop date: 03/25/11 11:30:00 ciprofloxac No Val 750 mg, 3 Memoria in 02-23 tab, l 18:00: Aaron Route: POGerda Drug form: TAB, Q12H, Priority: Routine, Start date: 02/23/11 13:00:00, Duration: 30 day, Stop date: 03/25/11 11:00:00 insulin No Val 10 unit, Kalia aida isophane-SPECIAL LIBRARIAN 02-21e 0.1 mL, l H 22:00: Aaron Route: [place] SUB-Q, Drug form: INJ, BID, Start date: 02/21/11 17:00:00, Stop date: 03/23/11 9:00:00 magnesium 2010- No Val 400 mg, 1 M emoria oxide 02-21e tab, l 22:00: Aaron Route: PONikolasa nn Drug form: TAB, BID, Start date: 02/21/11 17:00:00, Duration: 5 day, Stop date: 02/26/11 9:00:00 calcium 2010-0 No Val 500 mg, 1 Mem oria carbonate 02-21e tab, l 19:26: Aaron Route: Jorge Alberto [...] Duration: 30 day, Stop date: 03/22/11 8:00:00 Draper No Claudy 1 tab, Memoria 7.5/325 02-20 Salazar Route: PO, l oral tablet 16:07: Drug Form: [place] 00 TAB, Q4H, PRN Pain, Start date: 02/20/11 11:07:00, Duration: 30 day, Stop date: 03/22/11 11:06:00 Crestor No Albaro 20 mg, 2 Kalia aida 02-20 Demarco tab, l 14:00: Christopher Route: PO, Berto n 00 Drug form: TAB, Daily, Start date: 02/20/11 9:00:00, Duration: 30 day, Stop date: 03/21/11 9:00:00 senna 0 No Albaro 8.6 mg, 1 Memor ia 02-20 Demarco tab, l 14:00: Christopher Route: PO, Berto n 00 Drug Form: TAB, Daily, Start date: 02/20/11 9:00:00, Duration: 30 day, Stop date: 03/21/11 9:00:00 [place] 0 No Albaro 120 mg, 2 Kalia [...] emoria 02-20 Kasi Rate: l 03:07: 1,000 [place] 00 ml/hr, Infuse over: 0.5 hr, Route: IV, Total Volume: 500, Start date: 02/19/11 22:07:00, Duration: 1 doses or times, Stop date: 02/19/11 22:36:00, Bolus DoseBolus Dose calcium No Ambili M 1,000 mg, M emoria chloride 02-20 Kasi 10 mL, l 02:18: Route: IV, [place] Drug form: INJ, ONCE, Start date: 02/19/11 21:18:00, Stop date: 02/19/11 21:18:00 Tylenol No Claudy 650 mg, 2 Kalia aida 02-20 Salazar tab, l 02:13: Route: PO, [place] Drug form: TAB, Q4H, PRN Fever, Start date: 02/19/11 21:13:00, Duration: 30 day, Stop date: 03/21/11 21:12:00 levetiracet No Albaro 500 mg, 1 Memoria am 02-20 Dav tab, l 02:00: Christopher Route: PO, Berto n Drug form: TAB, Q12H, Start date: 02/19/11 21:00:00, Duration: 30 day, Stop date: 03/21/11 9:00:00 acetaminoph No Ambili M 650 mg, Memoria en 02-20 Kasi 20.3 mL, l 01:04: Route: PO, Jorge Alberto Drug form: LIQ, Q4H, PRN Fever, Start [...] tablet 22:00: Aaron Route: PO, Her restrepo Drug form: TAB, Q8H, Start date: 02/19/11 17:00:00, Stop date: 03/21/11 8:00:00 docusate No Albaro 100 mg, 1 Me moria sodium 100 02-19 Dav cap, l mg oral 22:00: Christopher Route: PO, Her restrepo capsule 00 Drug form: CAP, BID, Start date: 02/19/11 17:00:00, Duration: 30 day, Stop date: 03/21/11 9:00:00 Draper 5/325 No Albaro 1 tab, Me moria oral tablet 02-19 Dav Route: PO, l 21:14: Christopher Drug Form: Berto n 00 TAB, Q4H, PRN Pain, Start date: 02/19/11 16:14:00, Duration: 30 day, Stop date: 03/21/11 16:13:00 ciprofloxac No Laure Thi 400 mg, Memoria in 02-19 Sahu 200 mL, l 21:10: Route: Jorge Alberto 00 IVPB, Drug form: INJ, [id number], Priority: NOW, Start date: 02/19/11 16:10:00, Duration: 30 day, Stop date: 03/21/11 4:10:00 vancomycin No Sky 2 gm, Kalia aida 02-19 Mzee Dmitri Route: l 21:02: IVPB, Jorge Alberto 00 ONCE, Priority: STAT, Start date: 02/19/11 16:02:00, Stop date: 02/19/11 16:02:00 Insulin No Albaor 100 mL, Memor ia regular 100 02-19 [...] 02-19 Demarco 0.07 mL, l human 20:51: White Route: Jorge Alberto recombinant 00 SUB-Q, 100 Drug form: units/mL SOLN, PRN, injectable PRN solution Abnormal Lab Result, Start date: 02/19/11 15:51:00, Duration: 30 day, Stop date: 03/21/11 15:50:00 Dextrose No Albaro 6.25 gm, Mem oria 50% Syringe 02-19 Demarco 12.5 mL, l 20:51: White Route: [place] 00 IVP, Drug Form: INJ, PRN, PRN Abnormal Lab Result, Start date: 02/19/11 15:51:00, Duration: 30 day, Stop date: 03/21/11 15:50:00 Saline No Albaro 5 ml, Memoria Flush 0.9% 02-19 Demarco Route: l 20:51: Christopher IVP, Drug Jorge Alberto Form: INJ, PRN, PRN Line Flush, Start date: 02/19/11 15:51:00, Duration: 30 day, Stop date: 03/21/11 15:50:00 morphine No Albaro 2 mg, 1 Kalia aida Sulfate 02-19 Demarco mL, Route: l 20:51: Christopher IVP, Drug Jorge Alberto 00 form: INJ, Q1H, PRN Pain Score [...] Carlos 0.1 mL, l 19:18: Herman Route: [place] 00 IVP, Drug form: INJ, Q2MIN, PRN Narcotic Reversal, Start date: 02/19/11 14:18:00, Duration: 8 doses or times, Stop date: 02/20/11 14:18:00 hydromorpho No Claudy 0.3 mg, Me moria ne 02-19 Salazar 0.15 mL, l 19:18: Route: Jorge Alberto 00 IVP, Drug form: INJ, Q5Min, PRN [...] Ollie Rizvi Route: l 19:00: IVPB, Drug Jorge Alberto 00 form: INJ, [id number], Start date: 02/19/11 14:00:00, Duration: 30 day, [...] tab, PO, l tablet 21:11: Q12H, 60 [place] 44 tab, Substituti on Allowed, TAB Humulin [...] tab, PO, l tablet 21:09: BID, 60 [place] 07 tab, Substituti on Allowed, TAB bisacodyl Yes Bonnie Jyotsna 10 mg, 1 Memoria 10 mg 9-20 Zeider supp, ID, l rectal 21:08: Bedtime, [place] suppository 53 PRN, 30 supp, Constipati on, Substituti on Allowed, SUPP Dra[place] 5/325 Yes Bonnie Jyotsna 1 tab, PO, Memoria oral tablet 9-20 Zeider Q4H, PRN, l 21:08: 30 tab, as Jorge Alberto 50 needed for pain, Substituti on Allowed, Maintenanc e, TAB [place] Yes Bonnie Jyotsna 120 mg, 1 Memoria [...] tab, PO, l tablet 21:08: Q8H, 90 [place] 06 tab, Substituti on Allowed, TAB normal No Katie L 1,000 mL, M emoria saline 0.9% 02-18 Christianson Rate: 100 l IV 1,000 mL 16:29: ml/hr, Herm mercy 00 Infuse over: 10 hr, Route: IV, Total Volume: 1,000, Start date: 02/18/11 11:29:00, Duration: 30 day, Stop date: 03/20/11 11:28:00 potassium No 25 mEq, Memor ia bicarbonate 02-13 Substituti l 25 mEq oral 23:15: on Allowed [place] tablet, 20 effervescen t potassium No Mujahed M 40 mEq, 30 Memoria chloride -14 Alikhan mL, Route: l 16:00: PO, Drug [place] 00 form: LIQ, Daily, Start date: 02/12/11 11:00:00, Duration: 30 day, Stop date: 03/14/11 8:00:00 Kayexalate No Fide B 15 gm, 60 Memoria 9-14 Dean mL, Route: l 02:17: PO, Drug form: SUSP, ONCE, Start date: 02/11/11 21:17:00, Stop date: 02/11/11 21:17:00 Kayexalate No Meilani H 30 gm, 120 Memoria 9-13 [place] mL, Route: l 22:22: PO, Drug [place] 00 form: SUSP, ONCE, Start date: 02/11/11 17:22:00, Stop date: 02/11/11 17:22:00 NS (Bolus) No Skyler 1,000 mL, Memoria IV 1,000 mL 02-11 Dean Rate: l 13:37: Joel 1,000 [place] 00 ml/hr, Infuse over: 1 hr, Route: IV, Total Volume: 1,000, Priority: STAT, Start date: 02/11/11 8:37:00, Duration: 1 doses or times, Stop date: 02/11/11 9:36:00, Bolus DoseBolus Dose dexamethaso No Bonnie Jyotsna 1 mg, 1 Memoria ne 9-13 [place] tab, l 13:00: Route: PO, [place] 00 Drug form: TAB, Daily, Start date: 02/11/11 8:00:00, Duration: 2 day, Stop date: 02/12/11 8:00:00 Fleet Enema 2010- No Skyler 133 ml, Memoria 02-10 Dean Route: ID, l 19:15: Joel Drug Form: [facility] 00 JEANNIE, ONCE, Start date: 02/10/11 14:15:00, Stop date: 02/10/11 14:15:00 bisacodyl No Skyler 10 mg, 1 M emoria 02-10 Dean supp, l 19:15: Joel Route: ID, [facility] Drug form: SUPP, ONCE, Start date: 02/10/11 14:15:00, Stop date: 02/10/11 14:15:00 dexamethaso No Bonnie Jyotsna 1 mg, 1 Memoria ne 02-09 [place] tab, l 13:00: Route: PO, [place] 00 Drug form: TAB, BID, Start date: [...] 02-07 [place] tab, l 13:00: Route: PO, Drug form: TAB, TID, Start date: 02/07/11 8:00:00, Duration: 2 day, Stop date: 02/08/11 17:00:00 Prinivil No Bonnie Jyotsna 10 mg, 1 Memoria 02-06 [place] tab, l 22:00: Route: PO, [place] 00 Drug form: TAB, QPM, Start date: 02/06/11 17:00:00, Duration: 30 day, Stop date: 03/07/11 17:00:00 dexamethaso 2010-0 No Meilani H 2 mg, 1 Memoria ne 02-05 [place] tab, l 13:00: Route: PO, [place] 00 Drug form: TAB, TID, Start date: 02/05/11 8:00:00, Duration: 2 day, Stop date: 02/06/11 17:00:00 lisinopril No Bonnie Jyotsna 10 mg, 1 Memoria 02-04 Zeider tab, l 13:00: Route: PO, Jorge Alberto 00 Drug form: TAB, QPM, Start date: 02/04/11 8:00:00, Duration: 30 day, Stop date: 03/05/11 17:00:00 insulin 2010-0 No Mujahed M 8 unit, [place] moria isoph[employer] 9-06 Alikhan 0.08 mL, l H 11:30: Route: Jorge Alberto SUB-Q, Drug form: INJ, Before Breakfast, Start date: 02/04/11 6:30:00, Stop date: 03/05/11 6:30:00 insulin 2010-0 No Mujahed M 8 unit, [place] moria isoph[employer] 9-06 Alikhan 0.08 mL, l H 02:00: Route: Jorge Alberto 00 SUB-Q, Drug form: INJ, Bedtime, Start date: 02/03/11 21:00:00, Stop date: 03/04/11 21:00:00 potassium 2010-0 No Darcy 40 mEq, 2 Memoria chloride 20 02-03 Jeane tab, l mEq oral 19:29: Ash Route: PO, [place] tablet, 00 Drug form: extended ERTAB, release ONCE, Start date: 02/03/11 14:29:00, Stop date: 02/03/11 14:29:00 potassium 2010-0 No Bonnie Jyotsna 40 mEq, 2 Memoria chloride 20 02-03 Zeider tab, l mEq oral 14:00: Route: PO, Her restrepo tablet, 00 Drug form: extended ERTAB, release Daily, Start date: 02/03/11 9:00:00, Stop date: 03/05/11 8:00:00 dexamethaso 0 No Meilani H 3 mg, 1.5 Memoria ne 02-03 [place] tab, l 13:00: Route: PO, Jorge Alberto 00 Drug form: TAB, TID, Start date: 02/03/11 8:00:00, Duration: 2 day, Stop date: 02/04/11 17:00:00 insulin No Darcy 15 unit, Memoria isophane-[employer] 02-03 Jeane 0.15 mL, l H 05:00: Ash Route: Jorge Alberto SUB-Q, Drug form: INJ, Q24H, Start date: 02/03/11 0:00:00, Duration: 30 day, Stop date: 03/04/11 0:00:00 Keppra No Meilani H 500 mg, 1 M emoria 02-03 [place] tab, l 02:00: Route: PO, [place] 00 Drug form: TAB, Q12H, Start date: 02/02/11 21:00:00, Duration: 30 day, Stop date: 03/04/11 9:00:00 hydrALAZINE No Darcy 25 mg, 1 Memoria 25 mg oral 02-01 Jeane tab, l tablet 22:00: [place] Route: PO, H ermann 00 Drug form: TAB, BID, Start date: 02/01/11 17:00:00, Stop date: 03/03/11 8:00:00 heparin No Sky 5,000 Memoria 02-01 Mzee Rizvi unit, 1 l 21:00: mL, Route: [place] SUB-Q, Drug form: INJ, Q8H, Start date: 02/01/11 16:00:00, Duration: 30 day, Stop date: 03/03/11 8:00:00 Kayexalate No Darcy 15 gm, 60 Memoria 02-01 Jeane mL, Route: l 18:19: Ash PO, [...] 02-01 Dean tab, l 14:00: Route: PO, Drug form: TAB, Daily, Start date: 02/01/11 9:00:00, Duration: 30 day, Stop date: 03/02/11 9:00:00 atenolol 50 No Darcy 50 mg, 1 Memoria mg oral 02-01 Jeane tab, l tablet 14:00: [place] Route: PO, H Drug form: TAB, Daily, Start date: 02/01/11 9:00:00, Duration: 30 day, Stop date: 03/02/11 9:00:00 [place] No Bonnie Jyotsna 120 mg, 2 Memoria Thyroid 02-01 Zeider tab, l 14:00: Route: PO, Drug form: TAB, Daily, Start date: 02/01/11 9:00:00, Duration: 30 day, Stop date: 03/02/11 9:00:00 dexamethaso No Bonnie Jyotsna 4 mg, 1 Memoria ne 02-01 Zeider tab, l 05:00: Route: PO, Drug form: TAB, Q8H, Start date: 02/01/11 0:00:00, Duration: 2 day, Stop date: 02/02/11 16:00:00 Humulin N No Darcy 20 unit, Memoria 02-01 Jeane 0.2 mL, l 05:00: [place] Route: SUB-Q, Drug form: INJ, BID, Start date: [...] Jv 0.01 mL, l 22:22: Nur Route: [place] 00 SUB-Q, Drug form: SOLN, TID-Before Meals, [...] 01-31 Jv supp, l 22:22: Nur Route: ID, Gerda nn 00 Drug form: SUPP, Bedtime, PRN Constipati on, [...] ister at least once every 8 hours Shyla No Bonnie Jyotsna Route: Mem oria 01-31 [...] Duration: 30 day, Stop date: 03/02/11 8:00:00 Draper 5/325 No Bonnie Jyotsna 1 tab, Memoria oral tablet 01-31 Zeider Route: PO, l 19:56: Drug Form: [place] 00 TAB, Q4H, PRN as needed for pain, Start date: 01/31/11 14:56:00, Duration: 30 day, Stop date: 03/02/11 14:55:00 bisacodyl No Bonnie Jyotsna 10 mg, Memoria 01-31 Zeider Route: ID, l 19:56: Drug form: Jorge Alberto 00 SUPP, Daily, PRN as needed for [...] 1 Memoria 10 mg 01-31 Zeider supp, ID, l rectal 17:52: Daily, Jorge Alberto suppository 36 PRN, 60 supp, Constipati on, Substituti on Allowed, SUPP [place] 5325 Yes Bonnie Carreray 1 tab, PO, Memoria oral tablet 01-31 Zeider Q4H, PRN, l 17:52: 60 tab, Jorge Alberto 26 Headache, Substituti on Allowed, Maintenanc e, TAB Draper No Abel 1 tab, M emoria oral [...] insulin No Memo 20 unit, Kalia aida isophane[employer]IAN 01-29 Omidvar 0.2 mL, l H 13:00: Route: [place] 00 SUB-Q, Drug form: INJ, Q8H, Start date: 01/29/11 8:00:00, Stop date: 02/28/11 0:00:00 Keppra 100 No Juan J 500 mg, 5 Memoria mg/mL oral 01-29 Srikanth Boss mL, Route: l solution 02:00: JATIN, Drug Gerda nn 00 form: SOLN, Q12H, Start date: 01/28/11 21:00:00, Duration: 30 day, Stop date: 02/27/11 9:00:00 ranitidine No Juan J 150 mg, 10 Memoria 15 mg/mL 01-29 Srikanth Boss mL, Route: l oral syrup 02:00: [place], Drug Her restrepo 00 form: SYRP, Q12H, Start date: [...] Jeane 1 tab, l oral tablet 22:00: [place] Route: PO, Drug form: TAB, BID, Start [...] 01-26 Avinash tab, l 21:00: Route: PO, [place] 00 Drug form: TAB, Q8H, Start date: 01/26/11 16:00:00, Stop date: 02/25/11 8:00:00 dexamethaso No Sky 6 mg, 1 M emoria ne 01-26 Ollie Rizvi tab, l 21:00: Route: PO, [place] 00 Drug form: TAB, Q4H, Start date: [...] ne 01-26 Route: l 17:00: IVP, Q6H, [place] 00 Start date: 01/26/11 12:00:00, Duration: 30 day, Stop date: 02/25/11 6:00:00 mannitol No Isabel 75 gm, 375 Me moria 01-26 Manasa mL, Route: l 17:00: Christian IVPB, Drug [facility] mercy 00 form: INJ, Q6H, Start date: 01/26/11 12:00:00, Duration: 30 day, Stop date: 02/25/11 6:00:00 mannitol No Imoigele P 75 gm, 375 Memoria 01-26 Aisiku mL, Route: l 15:00: IVPB, Drug [place] form: INJ, ONCE, Start date: 01/26/11 10:00:00, Stop date: 01/26/11 10:00:00 potassium 2010-0 No Miles D 36 mmol, M emoria phosphate 01-26 Christian 12 mL, l 08:29: Route: [place] 00 IVPB, On Adm, Start date: 01/26/11 3:29:00, Duration: 1 doses or times, Stop date: 01/26/11 8:00:00 mannitol 2010-0 No Odell Voda 50 gm, Mem oria 01-25 Route: l 22:50: IVPB, [place] 00 ONCE, Start date: 01/25/11 17:50:00, Stop date: 01/25/11 17:50:00 heparin 2010- No Sky 5,000 Memoria - [facility] Rizvi unit, 1 l 21:00: mL, Route: Jorge Alberto 00 SUB-Q, Drug form: INJ, Q8H, Start date: 01/25/11 16:00:00, Duration: 30 day, Stop date: 02/24/11 8:00:00 sodium 2010- Yes Miles D 15 mmol, 5 Me moria phosphate 01-25 Christian mL, Route: l 13:20: IV, ONCE, Start date: 01/25/11 8:20:00, Stop date: 01/25/11 8:20:00 sodium 2010- No Miles D 15 mmol, Kalia aida [...] No Miles D 10 mg, 0.5 Memoria -27 Christian mL, Route: l 05:14: IV, Drug form: INJ, Q30Min, PRN Hypertensi on, Start date: 01/25/11 0:14:00, Duration: 30 day, Stop date: 02/24/11 0:13:00 dexamethaso No Sky 10 mg, 1 Memoria ne 01-25 Mzee Rizvi mL, Route: l 05:00: IV, Drug form: INJ, Q6H, Start date: 01/25/11 0:00:00, Stop date: 02/23/11 18:00:00 Insulin No Megan 99 mL, Memori a regular 100 01-25 [place] Rate: l unit + 04:59: TITRATE, Jorge Alberto Sodium Route: IV, Chloride Total 0.9% IV 99 Volume: mL 100, Start date: 01/24/11 23:59:00, Duration: 30 day, Stop date: 02/23/11 23:58:00 Dextrose No Miles D 12.5 gm, Me moria 50% Syringe 01-25 Christian 25 mL, l 04:41: Route: [place] 00 IVP, Drug Form: INJ, PRN, PRN Abnormal Lab Result, Start date: 01/24/11 23:41:00, Duration: 30 day, Stop date: 02/23/11 23:40:00 Insulin No Miles D 100 mL, Kalia aida regular 100 01-25 Christian Rate: l unit + 04:41: Start at [place] Sodium 00 0.05 Chloride units/kg/h 0.9% our-, [...] 500 mg, M emoria am 01-25 Srikanth Boss Route: IV, l 02:00: Q12H, [place] 00 Start date: 01/24/11 21:00:00, Duration: 30 [...] Replace Every: 12 hr chlorhexidi No Roopa Taytana 15 ml, Memoria ne topical 01-25 Ryan Route: l 0.12% 01:00: S&SPIT, Jorge Alberto liquid 00 Q4H, Drug form: LIQ, Start date: 01/24/11 20:00:00, Duration: 30 day, Stop date: 02/23/11 16:00:00 niCARdipine No Emmanuel 40 mg, 200 Memoria 40 mg in NS 01-25 Tatyana mL, Rate: l 200 ml IV 00:07: George Titrate, Her restrpeo 40 mg 00 Route: IV, Total Volume: 200 mL, Duration: 30 day, Stop date: 02/23/11 19:06:00, Replace Every: 24 hr vancomycin No Juan J 1 gm, Kalia aida 01-24 Srikanth Boss Route: l 14:00: IVPB, Drug form: INJ, [id number], Start date: 01/24/11 9:00:00, Duration: 30 day, [...] 250 mcg, Memoria 8-25 SUB-Q, l 19:31: Jorge Alberto DOBBS 55 Substituti on Allowed, INJ cephalexin Yes [...] 30 l tablet 19:29: Jorge Alberto jimenez 42 Substituti on Allowed, TAB benzonatate Yes 1 cap, PO, Memoria 200 mg oral 8-25 TID, 30 l capsule 19:29: Jorge Alberto chen 30 Substituti on Allowed, CAP atenolol 50 Yes 1 tab, PO, Memoria mg oral 8-25 Daily, 30 l tablet 19:29: Jorge Alberto jimenez 06 Substituti on Allowed [place] Yes Bonnie Goyal 1 tab, PO, Memoria Thyroid 120 8-25 Zeider Daily, 30 l mg oral 19:28: tab, Jorge Alberto tablet 50 Substituti on Allowed, TAB docusate No Roopa Tatyana 100 mg, 1 Memoria 8-25 Ryan cap, l 14:00: Route: PO, [place] Drug form: CAP, BID, Start date: 01/23/11 9:00:00, Stop date: 02/21/11 17:00:00 Senna 8.6 No Gideon 8.6 mg, 1 Memoria mg oral 825 Jv tab, l tablet 14:00: Nur Route: PO, Her restrepo Drug Form: TAB, Q12H, Start date: 01/23/11 9:00:00, Duration: 30 day, Stop date: 02/21/11 21:00:00 levetiracet No Miles D 500 mg, 1 Memoria am 8 Christian tab, l 14:00: Route: PO, Jorge Alberto 00 Drug form: TAB, Q12H, Start date: 01/23/11 9:00:00, Duration: 30 day, Stop date: 02/21/11 21:00:00 calcium No Ramos L 1,000 mg, M emoria chloride 01-23 Day 10 mL, l 13:30: Route: Jorge Alberto 00 IVPB, ONCE, Start date: 01/23/11 8:30:00, Stop date: 01/23/11 8:30:00 magnesium No Ramos L 2 gm, 50 [...] 30 day, Stop date: 02/22/11 0:00:00 acetaminoph No Gideon 650 mg, 2 Memoria en 8-25 Jv tab, l 10:22: Nur Route: PO, Gerda nn 00 Drug form: TAB, Q4H, PRN Pain/Fever , Start date: 01/23/11 5:22:00, Duration: 30 day, Stop date: 02/22/11 5:21:00 morphine 2010- No Sky 2 mg, 1 Kalia aida Sulfate 8-25 Mzee Rizvi mL, Route: l 10:22: IVP, Drug [place] 00 form: INJ, Q4H, PRN Pain Score [...] 0.05 mL, l human 10:14: Nur Route: Jorge Alberto recombinant 00 SUB-Q, 100 Drug form: units/mL SOLN, PRN, injectable PRN solution Abnormal Lab Result, Start date: 01/23/11 5:14:00, Duration: 30 day, Stop date: 02/22/11 5:13:00 Dextrose 2010- No Gideon 6.25 gm, Me moria 50% Syringe 8-25 Jv 12.5 mL, l 10:14: Nur Route: [place] 00 IVP, Drug Form: INJ, PRN, PRN [...] 8-25 Jv supp, l 10:14: [place] Route: ID, Gerda nn 00 Drug form: SUPP, Daily, PRN Constipati on, Start date: 01/23/11 5:14:00, Duration: 30 day, Stop date: 02/22/11 5:13:00 acetaminoph No Gideon 650 mg, 2 Memoria en 8-25 Jv tab, l 10:14: [place] Route: PO, Gerda nn 00 Drug form: TAB, Q4H, PRN Pain/Fever , Start date: 01/23/11 5:14:00, Duration: 30 day, Stop date: 02/22/11 5:13:00 morphine 2010- No Gideon 2 mg, 1 Mem oria [...] Oral MG Oral ity of Tablet Tablet [place] [facility] Trulicity Trulicity Yes Unive rs 0.75 0.75 ity of MG/0.5ML MG/0.5ML [place] Subcutaneou Subcutaneou P hysici s Solution s [...] TABS 100 MG TABS i ty of [place] [facility] Vital Signs Vital Name Observation Time Observation Value Comments Source Systolic blood 2020-03-27 144 mm[Hg] [facility] 12:12:00 [place] [facility] Diastolic blood 2020-03-27 64 mm[Hg] [facility] pressure 12:12:00 [place] [facility] Body temperature 2020-03-27 97.5 [degF] [facility] 12:12:00 [place] [facility] Heart Rate 2020-03-27 84 /min [facility] 12:12:00 [place] [facility] Respiratory rate 2020-03-27 18 /min [facility] 12:12:00 [place] [facility] Respitory Rate 2020-02-27 [facility] mercy 18:00:00 Systolic (mm Hg) 2020-02-27 [facility] rmann 18:00:00 Diastolic (mm Hg) 2020-02-27 [facility] ermann 18:00:00 Respitory Rate 2020-02-27 [facility] mercy 17:00:00 Respitory Rate 2020-02-27 [facility] mercy 16:00:00 Systolic (mm Hg) 2020-02-27 [facility] rmann 14:00:00 Diastolic (mm Hg) 2020-02-27 [facility] ermann 14:00:00 Systolic (mm Hg) 2020-02-27 [facility] rmann 12:00:00 Diastolic (mm Hg) 2020-02-27 [facility] ermann 12:00:00 Temperature Oral 2020-02-23 98.4 F [facility] rmann (F) 01:00:00 Temperature Oral 2020-02-22 98.8 F [facility] rmann (F) 21:35:00 Temperature Oral 2020-02-22 96.8 F [facility] rmann (F) 18:00:00 Respitory Rate 2020-02-20 [facility] 07:00:00 Respitory Rate 2020-02-20 [facility] 06:00:00 Temperature Oral 2020-02-20 98 F [facility] rmann (F) 05:00:00 Respitory Rate 2020-02-20 [facility] 05:00:00 Systolic (mm Hg) 2020-02-20 [facility] He rmann 05:00:00 Diastolic (mm Hg) 2020-02-20 [facility] H ermann 05:00:00 Systolic (mm Hg) 2020-02-20 [facility] rmann 03:00:00 Diastolic (mm Hg) 2020-02-20 [facility] ermann 03:00:00 Temperature Oral 2020-02-20 97.4 F [facility] rmann (F) 01:00:00 Systolic (mm Hg) 2020-02-20 [facility] rmann 01:00:00 Diastolic (mm Hg) 2020-02-20 [facility] ermann 01:00:00 Temperature Oral 2020-02-16 98 F [facility] rmann (F) 21:00:00 Heart Rate 2020-02-16 [facility] Berto n 12:21:00 Heart Rate 2020-02-16 [facility] 09:32:00 Heart Rate 2020-02-16 [facility] 05:09:00 Height 2020-02-15 149.86 cm [facility] 22:43:00 Weight 2020-02-15 [facility] 22:43:00 BMI Calculated 2020-02-15 [facility] 22:43:00 Systolic blood 2020-02-15 136 mm[Hg] [facility] - pressure 13:00:00 [facility] Diastolic blood 2020-02-15 63 mm[Hg] [facility] - pressure 13:00:00 Medical Center Heart rate 2020-02-15 71 /min [facility] - 13:00:00 [facility] Center Body temperature 2020-02-[address] [facility] - 13:00:00 [facility] Respiratory rate 2020-02-15 18 /min [facility] - 13:00:00 [facility] Oxygen saturation 2020-02-15 96 /min [facility] in Arterial blood 13:00:00 Medical nter by Pulse oximetry Body height 2020-02-11 149.9 cm [facility] - 22:11:00 [facility] Body weight 2020-02-11 84.505 kg [facility] - 22:11:00 [facility] BMI 2020-02-11 37.63 kg/m2 [facility] - 22:11:00 [facility] Heart Rate 2019-12-20 [facility] n 16:56:00 Respitory Rate 2019-12-20 [facility] 16:56:00 Systolic (mm Hg) 2019-12-20 [facility] 16:56:00 Diastolic (mm Hg) 2019-12-20 [facility] 16:56:00 Heart Rate 2019-12-20 [facility] n 13:24:00 Respitory Rate 2019-12-20 [facility] 13:24:00 Systolic (mm Hg) 2019-12-20 [...] 21:47:00 Temperature Oral 2019-12-19 97.5 F [facility] (F) 14:14:00 Height 2019-12-06 149.86 cm [facility] n 20:12:00 Height 2019-12-06 149.86 cm [facility] n 16:07:00 Height 2019-12-06 149.86 cm [...] ermann 14:30:00 Temperature Oral 2019-11-24 99.0 F [facility] rmann (F) 12:57:00 Height 2019-11-23 149.86 cm [facility] Berto n 07:25:00 Weight 2019-11-23 [facility] n 07:25:00 BMI Calculated 2019-11-23 [facility] 07:25:00 Temperature Oral 2019-11-22 97.4 F [facility] (F) 14:53:00 Temperature Oral 2019-11-22 97.9 F [facility] (F) 11:18:00 Heart Rate 2019-11-22 Jan Connoran n 10:08:00 BP Systolic 2019-05-05 148 mm[Hg] [facility] 11:27:00 [place] [facility] BP Diastolic 2019-05-05 62 mm[Hg] [facility] 11:27:00 [place] [facility] Height 2019-05-05 59 [in_us] [facility] 11:27:00 [place] [facility] Temperature 2019-05-05 98.5 [degF] [facility] 11:27:00 [place] [facility] Heart Rate 2019-05-05 72 /min [facility] 11:27:00 [place] [facility] Height 2019-05-05 59 [in_us] [facility] 11:26:00 [place] [facility] Temperature 2019-05-05 98.5 [degF] [facility] 11:26:00 [place] [facility] Temperature Oral 2019-03-04 98.8 F [facility] (F) 19:30:00 Heart Rate 2019-03-04 [facility] n 19:30:00 Respitory Rate 2019-03-04 [facility] 19:30:00 Systolic (mm Hg) 2019-03-04 [facility] 19:30:00 Diastolic (mm Hg) 2019-03-04 [facility] 19:30:00 Temperature Oral 2019-03-04 97.9 F Jan Kevin rmann (F) 17:05:00 Heart Rate 2019-03-04 [facility] n 17:05:00 Respitory Rate 2019-03-04 [facility] 17:05:00 Systolic (mm Hg) 2019-03-04 [facility] 17:05:00 Diastolic (mm Hg) 2019-03-04 [facility] 17:05:00 Temperature Oral 2019-03-04 98.6 F Jan Kevin rmann (F) 12:51:00 Heart Rate 2019-03-04 Memorial [...] Height 2019-01-25 59 [in_us] [facility] 08:41:00 [place] [facility] Temperature 2019-01-25 98.3 [degF] [facility] 08:41:00 [place] [facility] Temperature Oral 2019-01-10 97.6 F [facility] rmann (F) 20:03:00 Heart Rate 2019-01-10 [...] 17:10:00 Temperature Oral 2019-01-10 97.9 F [facility] (F) 13:29:00 Heart Rate 2019-01-10 [facility] [...] 23:49:00 Temperature Oral 2018-11-29 98.8 F [facility] (F) 17:30:00 Heart Rate 2018-11-29 [facility] n 17:30:00 Systolic (mm Hg) 2018-11-29 [facility] 17:30:00 Diastolic (mm Hg) 2018-11-29 [facility] 17:30:00 Respitory Rate 2018-11-29 [facility] 17:30:00 Systolic (mm Hg) 2018-11-29 [facility] 13:00:00 Diastolic (mm Hg) 2018-11-29 [facility] 13:00:00 Height 2018-11-29 149.86 cm Jan Thomson n 12:44:00 BMI Calculated 2018-11-29 [facility] 12:44:00 Weight 2018-11-29 [facility] 12:44:00 Systolic (mm Hg) 2018-11-29 [facility] 12:44:00 Diastolic (mm Hg) 2018-11-29 [facility] 12:44:00 Respitory Rate 2018-11-29 [facility] 12:44:00 Heart Rate 2018-11-29 Jan Connoran n 12:44:00 Temperature Oral 2018-11-29 98.7 F [facility] (F) 12:44:00 BP Systolic 2018-11-11 149 mm[Hg] Location: [facility] 12:31:00 Position: [place] [facility] BP Diastolic 2018-11-11 65 mm[Hg] Location: [facility] 12:31:00 Position: [place] [facility] Height 2018-11-11 59 [in_us] [facility] 12:31:00 [place] [facility] Weight 2018-11-11 213 [lb_av] [facility] 12:31:00 [place] [facility] Body Mass Index 2018-11-11 43.02 kg/m2 University o f Calculated 12:31:00 [place] [facility] Temperature 2018-11-11 97.6 [degF] Method: Oral [facility] 12:31:00 [place] [facility] Heart Rate 2018-11-11 74 /min Location: [facility] 12:31:00 Apical; [place] [facility] BP Systolic 2018-10-14 164 mm[Hg] Location: [facility] 12:27:00 Position: [place] [facility] BP Diastolic 2018-10-14 68 mm[Hg] Location: [facility] 12:27:00 Position: [place] [facility] Height 2018-10-14 59 [in_us] [facility] 12:27:00 [place] [facility] Weight 2018-10-14 215 [lb_av] [facility] 12:27:00 [place] [facility] Body Mass Index 2018-10-14 43.43 kg/m2 University o f Calculated 12:27:00 [place] [facility] Temperature 2018-10-14 98.5 [degF] Method: Oral [facility] 12:27:00 [place] [facility] Heart Rate 2018-10-14 84 /min Location: [facility] 12:27:00 Apical; [place] [facility] Systolic (mm [...] 08:19:00 Temperature Oral 2018-09-23 98.3 F [facility] (F) 08:19:00 BMI Calculated 2018-09-21 [facility] 23:07:00 Weight 2018-09-21 [facility] n 23:07:00 BP Systolic 2018-09-21 136 mm[Hg] Location: [facility] 11:28:00 [place] [facility] BP Diastolic 2018-09-21 88 mm[Hg] Location: [facility] 11:28:00 [place] [facility] Height 2018-09-21 59 [in_us] [facility] 11:28:00 [place] [facility] Weight 2018-09-21 205 [lb_av] [facility] 11:28:00 [place] [facility] Body Mass Index 2018-09-21 41.41 kg/m2 University o f Calculated 11:28:00 [place] [facility] Temperature 2018-09-21 96.8 [degF] Method: Oral [facility] 11:28:00 [place] [facility] Heart Rate 2018-09-21 84 /min Location: [facility] 11:28:00 Apical; [place] [facility] Temperature Oral 2018-09-20 98.1 F [...] Berto n 08:55:00 Height 2018-09-15 149.86 cm Jan Berto n 04:33:00 Heart Rate 2018-09-11 aJn Berto n 16:45:00 Heart Rate 2018-09-11 Jan Berto n 13:44:00 Heart Rate 2018-09-11 [facility] [...] 00:50:00 Temperature Oral 2018-08-20 98.0 F [facility] r[facility] (F) 00:50:00 Temperature Oral 2018-08-19 97.9 F [facility] r[facility] (F) 20:51:00 Respitory Rate 2018-08-19 [facility] [...] 08:28:00 Temperature Oral 2011-03-15 98.0 F [facility] (F) 08:28:00 Heart Rate 2011-03-15 [facility] [...] 03:09:00 Temperature Oral 2011-02-19 97.5 F [facility] (F) 03:09:00 Diastolic (mm Hg) 2011-02-18 [facility] 20:00:00 Temperature Oral 2011-02-18 98.4 F [facility] (F) 20:00:00 Heart Rate 2011-02-18 [facility] [...] 12:46:00 Temperature Oral 2011-01-31 98.5 F [facility] (F) 12:46:00 Peripheral Pulse 2011-01-31 [facility] Rate 11:21:00 Systolic (mm Hg) 2011-01-31 [facility] 11:21:00 Diastolic (mm Hg) 2011-01-31 [facility] 11:21:00 Diastolic (mm Hg) 2011-01-31 [facility] 10:58:00 Peripheral Pulse 2011-01-31 [facility] Rate 10:58:00 Systolic (mm Hg) 2011-01-31 [facility] 10:58:00 Respitory Rate 2011-01-31 [facility] 10:35:00 Temperature Oral 2011-01-31 97.8 F [facility] (F) 10:35:00 Respitory Rate 2011-01-31 [facility] 08:28:00 Temperature Oral 2011-01-31 98.1 F [facility] (F) 08:28:00 Height 2011-01-23 149.86 cm [facility] 09:37:00 Weight 2011-01-23 [facility] 09:[facility] Procedures Procedure Date / Time Performing Source Performed Clinician [QL] CBC (INCLUDES DIFF/PLT) 2020-03-27 [facility] 00:00:00 Physicians REPORT OF PROCEDURE - 2020-02-22 Provider, Jane Reyes ukes - ENDOSCOPY SCAN 17:13:37 Scanning [facility] POCT-GLUCOSE METER 2020-02-15 Harley, Gerry [facility] - 13:09:00 [facility] POCT-GLUCOSE METER 2020-02-[address] [facility] - 08:38:00 [facility] CBC W/PLT COUNT & AUTO 2020-02-15 Francisco Leonardo [facility] - DIFFERENTIAL 04:38:00 [facility] POCT-GLUCOSE METER 2020-02-14 Philippe Shirley [facility] - 21:04:00 [facility] POCT-GLUCOSE METER 2020-02-14 Philippe Shirley Khan [facility] - 18:04:00 [facility] URINE CULTURE 2020-02-[address] [facility] - 15:04:00 [facility] URINALYSIS W/ REFLEX URINE 2020-02-[address] [facility] - CULTURE 15:04:00 [facility] POCT-GLUCOSE METER 2020-02-14 Philippe Shirley Khan [facility] - 12:17:00 [facility] POCT-GLUCOSE METER 2020-02-14 Philippe Shirley Khan [facility] - 11:51:00 [facility] XR ESOPH SWALLOW FUNCTION 2020-02-14 Carlos Mclean [facility] - W/CINE VIDEO 10:24:00 [facility] CBC W/PLT COUNT & AUTO 2020-02-14 Francisco Leonardo [facility] - DIFFERENTIAL 04:24:00 [facility] POCT-GLUCOSE METER 2020-02-13 Philippe Shirley Khan [facility] - 22:29:00 [facility] POCT-GLUCOSE METER 2020-02-13 Philippe Shirley Khan [facility] - 17:26:00 [facility] XR CHEST 2 VIEWS 2020-02-[address] [facility] - 12:01:00 [facility] POCT-GLUCOSE METER 2020-02-[address] [facility] 08:03:00 [facility] POCT-GLUCOSE METER 2020-02-[address] [facility] - 22:59:00 [facility] POCT-GLUCOSE METER 2020-02-[address] [facility] - 17:20:00 [facility] XR CHEST 1 VIEW 2020-02-[address] [facility] - PORTABLE/BEDSIDE 12:43:00 [facility] POCT-GLUCOSE METER 2020-02-[address] [facility] - 12:06:00 [facility] TSH/FREE T4 IF INDICATED 2020-02-12 [facility] 10:54:00 [facility] VITAMIN B12 2020-02-12 Malissa Francisco Dylan [facility] - 10:54:00 [facility] LACTATE DEHYDROGENASE (LDH) 2020-02-12 [address] [facility] - 10:54:00 [facility] CREATINE KINASE (CK) 2020-02-12 TreasureFrancisco Dylan [facility] - 10:54:00 [facility] COMPREHENSIVE METABOLIC PANEL 2020-02-12 Malissa Francisco Dylan [facility] - 10:54:00 [facility] POCT-GLUCOSE METER 2020-02-[address] [facility] - 09:36:00 [facility] CBC W/PLT COUNT & AUTO 2020-02-12 Francisco Leonardo Dylan [facility] - DIFFERENTIAL 08:49:00 [facility] SARS-COV2/RT-PCR (SLHS & REF 2020-02-12 Nalam, Susy Socorro [facility]) 03:39:00 [facility] Transcatheter retrieval, 2019-02-21 Feli Azul percutaneous, of 20:58:00 intravascular foreign body (eg, fractured venous or arterial catheter), includes radiological supervision and interpretation, and imaging guidance (ultrasound or fluoroscopy), when performed Port [place] Insertion 2019-01-28 [facility] 00:00:00 Physicians XRAY Chest 2 views [id number] 2018-11-12 [facility] 00:00:00 Physicians IVIG Infusion Therapy 2018-11-11 [facility] 00:00:00 Physicians [QLH] CBC (INCLUDES DIFF/PLT) 2018[facility]11[facility] [QLH] CMP W/EGFR 2018-11-11 [facility] exas 00:00:00 Physicians MA Bone Density Scan [id number] 2018-10-14 [facility] 00:00:00 Physicians Selective catheter placement, 2018-08-19 [place] morial Jorge Alberto vertebral artery, unilateral, 13:02:00 with angiography of the ipsilateral vertebral circulation and all associated radiological supervision and interpretation, includes angiography of the cervicocerebral arch, when performed Insertion or Replacement of 2011-01-26 [place] rial Jorge Alberto Skull Tongs or Halo Traction 05:00:00 Device Other Excision or Destruction 2011-01-26 [place] morial [place] of Lesion or Tissue of Brain 05:00:00 Excision of Lesion or Tissue 2011-01-24 [facility] orial [place] of Cerebral Meninges 05:00:00 Intracranial [facility] 05:[facility]:00 Transfusion of Packed Cells 2011-01-24 [place] rial [place] 05:00:00 History of [facility] xas Ventriculoperitoneal shunt Physi cians creation Cervical laminectomy [facility] [place] section [facility] n Resection [facility] Shunt construction [facility] Tonsillectomy [facility] Plan of Care Planned Activity Planned Date Details Comments Source Future Scheduled 2027-02-[address] [facility] Test 00:00:00 malignant neoplasm Medical C enter of colon (procedure) [code = 357849552] Future Scheduled 2020-04-03 [QL] CBC (INCLUDES Unive rsity of Test 00:00:00 DIFF/PLT) [code = [place] [facility] [QL] CBC (INCLUDES DIFF/PLT)] Diagnostic Test 2020-03-27 [QL] CBC (INCLUDES To be Done: Univer sity of Pending 00:00:00 DIFF/PLT) [code = Dates Schedule: [place] P [facility]ys[facility] [QL] CBC (INCLUDES 04/03/2020, DIFF/PLT)] 04/10/2020 ... Diagnostic Test 2020-03-27 [QL] CBC (INCLUDES To be Done: Univer sity of Pending 00:00:00 DIFF/PLT) [code = Dates Schedule: [place] [facility]ys[facility] [QL] CBC (INCLUDES 04/03/2020, DIFF/PLT)] 04/10/2020 ... Future Scheduled 2020-01-[address] [facility] - Test 00:00:00 (#1) [code = Medical Center INFLUENZA VACCINE (#1)] Diagnostic Test 2018-11-12 XRAY Chest 2 views Univer sity of Pending 00:00:00 16046 [code = [place] Physicia ns 55729] Future Scheduled 2014-06-[address] [facility] - Test 00:00:00 WELLNESS (YEAR 2 or Medical Center FIRST YEAR if no IPPE) [code = MEDICARE ANNUAL WELLNESS (YEAR 2 or FIRST YEAR if no IPPE)] Future Scheduled 2012-01-10 PNEUMOCOCCAL [address] - Test 00:00:00 YRS (1 of 1 - Medical Center [id number] PCV13) [code = PNEUMOCOCCAL 65+ YRS (1 of 1 - [id number]_[id number] PCV13)] Future Scheduled [address] [facility] Test 00:00:00 malignant neoplasm Medical C enter of breast (procedure) [code = 769597033] Future Appointment 2020-06-26 [facility] 11:[facility] Dougie DRAKE Physician s Encounters Start End Encounter Admission Attending Care Care Encounter Source Date/Time Date/Time Type Type Clinicians Facility Department ID 2020-02-15 Inpatient U [facility] [id number] MH H 16:11:00 2019-02-05 Inpatient U [facility] MED [id number] H H 08:54:00 2018-12-24 Inpatient U [facility] [id number] H H 18:32:00 2018-08-16 Inpatient E [facility] [id number] [facility] H 23:35:00 2020-03-27 2020-03-27 AppointNIRALI Bueno [id number] [facility] 11:30:00 11:30:00 lisette CORRIGAN M.D. [place] it of Jo-Ann DRAKE M.D. [place] [facility] ci ans 2020-02-15 2020-02-27 Outpatient Lamont [facility] [id number] 16:11:00 14:07:00 Clovis Matute 2020-02-15 2020-02-15 Outpatient Hellen, [facility] [id number] 16:11:00 16:11:00 David Suresh 2020-01-05 2020-01-05 Outpatient Fernandez, MHOIH OI [id number] 11:40:00 23:59:00 Andre Kaur 05 2020-01-05 2020-01-05 NIRALI Olson [facility] [id number] Univers 10:00:00 10:00:00 t; Cheko CORRIGAN [place], [place] Cheko CORRIGAN Physi ci ans 2019-11-22 2019-12-20 Outpatient Nikunj, [facility] [id number] 05:06:00 15:30:00 Arsha 75 Estella 2019-11-22 2019-12-20 Outpatient Nikunj, [facility] [id number] 05:06:00 15:30:00 Arsha 75 Estella 2019-11-29 2019-11-29 NIRALI Olson [facility] [id number] Univers 11:00:00 11:00:00 t; Cheko CORRIGAN [place] Cheko CORRIGAN Physi ci ans 2019-11-22 2019-11-22 Outpatient Nikunj, [facility] [id number] 05:06:00 05:06:00 Arsha 75 Estella 2019-11-22 2019-11-22 Outpatient [facility] [id number] 05:06:00 05:06:00 Saleem Perry 2019-11-22 2019-11-22 Outpatient Osvaldo [facility] [id number] 05:06:00 05:06:00 Saleem Perry 2019-11-22 2019-11-22 Inpatient E [facility] [id number] [facility] 12:06:00 03:48:00 2019-05-05 2019-05-05 NIRALI Olson Neurology - [id number] Univers 11:30:00 11:30:00 t; [facility] ans 2019-02-05 2019-03-04 Outpatient Hernán [facility] [id number] 08:54:00 18:18:00 Jai Perez 2019-01-25 2019-01-25 AppointNIRALI Bueno Neurology - [id number] Univers 08:00:00 08:00:00 t; Cheko CORRIGAN [facility] Cheko CORRIGAN [facility] ans 2018-12-24 2019-01-10 Outpatient Lyric [facility] [id number] 18:32:00 15:53:00 Reji 2018-11-29 2018-11-29 Outpatient Stan [facility] [id number] 07:33:57 12:20:00 Abel Vizcaino 2018-11-29 2018-11-29 Emergency E [facility] [id number] [facility] 07:33:00 07:33:00 2018-11-18 2018-11-18 [id number] 09:50:00 23:59:00 [place] 2018-11-11 2018-11-11 Appointrick DRAKE [facility] Neurology - [id number] [facility] 11:00:00 11:00:00 t; Cheko CORRIGAN [facility] Dougie CORRIGAN M.D. [facility] ans 2018-10-21 2018-10-21 Outpatient BOBBY Drake OIP [id number] 10:21:00 23:59:00 [place] 2018-10-14 2018-10-14 Appointrick DRAKE [facility] Neurology [id number] Univers 11:30:00 11:30:00 t; Cheko CORRIGAN [place] Cheko CORRIGAN Physi ci ans 2018-09-21 2018-09-23 Outpatient Hellen [facility] [id number] 18:06:00 16:20:00 David Jacobo 13 2018-09-21 2018-09-23 Outpatient Hellen [facility] [id number] 18:06:00 16:20:00 David Jacobo 13 2018-09-21 2018-09-21 Outpatient U [facility] [id number] [facility] 18:06:00 18:06:00 2018-09-21 2018-09-21 AppointNIRALI Bueno [facility] [id number] Univers 10:30:00 10:30:00 t; Cheko CORRIGAN ity of Dougie DRAKE M.D. [facility] ans 2018-09-12 2018-09-20 Outpatient Smart, [facility] [id number] 15:01:00 16:23:00 Sean 01 Luis 2018-09-12 2018-09-10 Inpatient U [facility] [id number] [facility] 15:01:00 00:20:00 2018-09-09 2018-09-09 Outpatient Heronpara, [facility] [id number] 11:57:00 22:17:00 Sadi N 00 2018-09-09 2018-09-08 Inpatient U [facility] [id number] Memoria 11:57:00 09:51:00 l Jorge Alberto [facility] 2018-08-16 2018-08-19 Outpatient Smart, [facility] [id number] 15:03:00 21:09:00 Sean 05 Luis 2018-08-16 2018-08-17 Outpatient MHMISCHER MHMISCHER [id number] 10:11:00 23:59:59 00 Results Test Description Test [...] code = MCH) 24.1 pg 27.0-31.0 [facility] FjmyuihPIRYWBAXPL0446-97-58 05:52:0030.9[facility] HermannHEMATOLOGY 2020-02-27 05:52:0020.2[facility] DeotuwuHSBLWBBTNT2984-16-11 05:52:94592Valzknko UycojdhDPQDSYHLGD8756-24-33 05:52:009.5[facility] PlcjatnZLDFNDGQKQ2138-46-53 05:52:0078.2[facility] RpdgfkhGNPDBNYSVV5995-33-46 05:52:0015.4[facility] TOGJLZSXSM2114-37-34 05:52:005.7[facility] ZfecbweLVWQHHFONS3953-40-05 05:52:000.3 [facility] JjxknnaMJEKWWDYTB8760-61-07 05:52:000.4[facility] HermannHEMATOLOGY 2020-02-27 05:52:0014.9[facility] JwsptrlJVLFXKLEVU5573-83-46 05:52:002.9[facility] MaprbfcRWABSNBPHB2795-97-91 05:52:001.1[facility] YdyrvlvYMYXSXMMIY6452-74-30 05:52:000.1[facility] NnftjrcOEJUCJVPHC4007-75-00 05:52:000.1[facility] DIYGKXWNEC1598-31-90 05:52:001+ *ABN*(02/27/20 12:52 AM)[facility] [place] PARATHYROID FUZFMSS2936-55-81 05:52:001.22[facility] HermannPARATHYROID PROFILE 2020-02-27 05:52:001.20[facility] HermannCHEM VZFPV7059-87-44 06:07:002.1[facility] HermannCHEM TIJNB4193-16-43 06:07:52058Qmzopcbo HermannCHEM HWYVM8346-90-79 06:07:0014[facility] HermannCHEM YHOKV6858-55-81 06:07:000.74[facility] HermannCHEM UBWLZ5062-65-67 06:07:31720Bioikfpi HermannCHEM YBCON7597-82-72 06:07:004.3 [facility] HermannCHEM RSZPJ1180-64-33 06:07:38206Ehsuteer HermannCHEM PANEL 2020-02-26 06:07:0023[facility] HermannCHEM RAICW9546-30-68 06:07:008.7[facility] HermannCHEM DSCLC4739-64-50 06:07:0010.3[facility] HermannCHEM DGTEA9347-48-80 06:07:0080[facility] HermannCHEM ICNQF5777-28-17 06:07:002.7[facility] [place] IAJPESMBOR2316-77-95 06:07:0084.4[facility] QmnqnroKNTMHRTRRL8197-81-29 06:07:00 10.8[facility] CfuruslHPMDUTCMSH8074-37-71 06:07:004.4[facility] HermannHEMATOLOGY 2020-02-26 06:07:000.1[facility] EazufjaSTBRLLVQVN1482-72-70 06:07:000.3[facility] FjoqtjxPFQAXKPHAN9017-58-11 06:07:0014.3[facility] LbgroxcLQJIUPFAGV7787-36-23 06:07:001.8[facility] KhkikvtVGDIIMGBVC2962-53-54 06:07:000.7[facility] VNLJJWSKNK8014-77-31 06:07:001+ *ABN*(02/26/20 1:07 AM)[facility] HermannHEMATOLOGY 2020-02-26 06:07:0016.9[facility] SippwbmYYZYGTMKQS9789-02-91 06:07:003.72[facility] UpafftfMDISAKKRPZ1773-43-44 06:07:009.0[facility] EqilcnbBMVIOQGZTL2605-46-65 06:07:0029.3[facility] GicenmjZONCEHXNBF5156-55-30 06:07:0078.8[facility] [place] SNSVNOHSSQ5037-12-29 06:07:00 Test Item Value Reference Range Interpretation Comments MCH (test code = MCH) 24.1 pg 27.0-31.0 [facility] RbsixghKVEAQWFWUB8630-26-79 06:07:0030.6[facility] HermannHEMATOLOGY 2020-02-26 06:07:0019.6[facility] MyfchqcYGYITPOFOL6639-92-19 06:07:0098[facility] VtasctsDYJWTRIJMI6296-86-21 06:07:0010.1[facility] HermannPARATHYROID PROFILE 2020-02-26 06:07:001.18[facility] HermannPARATHYROID HSCFXNA7076-87-62 06:07:00 1.17[facility] HermannCHEM DPCHY3109-87-13 08:30:37297Uuaguffw HermannCHEM PANEL 2020-02-25 08:30:0016[facility] HermannCHEM OGUZB6307-25-25 08:30:000.75[facility] HermannCHEM TXSNQ9847-29-53 08:30:37817Witdvkxf HermannCHEM LWKLN2626-66-17 08:30:004.1[facility] HermannCHEM WPYIB0380-81-95 08:30:63145Ttgooesu HermannCHEM UZOFN2741-45-60 08:30:0024[facility] HermannCHEM LXTHX0184-23-68 08:30:009.0 [facility] HermannCHEM CZBUA7910-52-95 08:30:0012.1[facility] HermannCHEM PANEL 2020-02-25 08:30:0080[facility] HermannCHEM CHRIO8934-40-94 08:30:001.9[facility] HermannCHEM CYDGG2253-46-44 08:30:002.6[facility] DnkalvuNNNKQBRBGR1768-03-43 08:30:81366Mauaunbj ShmlnhvMTUKZQLUTK1221-44-61 08:30:0084.7[facility] MPJUDCEYZW8355-30-55 08:30:0010.5[facility] ExlenfwDAINLVVJLC8797-28-41 08:30:00 4.5[facility] BtxsratQBTLGKVTGQ2737-70-39 08:30:000.1[facility] HermannHEMATOLOGY 2020-02-25 08:30:000.2[facility] GlsgduzMGSNQFVMYG5600-59-26 08:30:0015.2[facility] CfsmmpaBKFSUAFZJG9716-31-76 08:30:001.9[facility] NlruqoyQUVBDCEQNV1245-59-19 08:30:000.8[facility] WhgdeioICNDRRCKSS9262-08-99 08:30:001+ *ABN*(02/25/20 3:30 AM)[facility] KuqrdyoSQNNYSEYQB3956-50-67 08:30:0017.9[facility] HermannHEMATOLOGY 2020-02-25 08:30:003.96[facility] MgcakidOJAYWUXASW5345-76-53 08:30:009.6[facility] EqmstevHLSACGHCYC1011-18-83 08:30:0031.0[facility] ZqisuiwINDMGRDJHU8655-60-56 08:30:0078.3[facility] WtpvummCCEUVFKAFB0428-40-77 08:30:00 Test Item Value Reference Range Interpretation Comments MCH (test code = MCH) 24.3 pg 27.0-31.0 [facility] NkpjnoaYNSNCMSMOF2696-30-09 08:30:0031.0[facility] HermannHEMATOLOGY 2020-02-25 08:30:0019.5[facility] GohvpvlCJDGQFMGQQ1497-22-18 08:30:0094[facility] AnkuaxaYLECBVSGVC0083-23-29 08:30:009.6[facility] HermannPARATHYROID PROFILE 2020-02-25 08:30:001.17[facility] HermannPARATHYROID QAUNRVR0908-42-47 08:30:00 1.17[facility] OjdmhlxJBSMTKQENZ1009-04-79 21:43:00Negative 5(02/24/20 4:43 PM) [facility] ZkxyhkuFODIIQFFUP6573-83-76 21:43:00 Test Item Value Reference Range Interpretation Comments Pat Od Value (test code = Pat Od 0.064 1 Value) [facility] JatoxojNNWXJWDXSI5335-19-32 21:43:00 Test Item Value Reference Range Interpretation Comments Pos CO Value (test code = Pos CO 0.400 1 Value) [facility] WgktgscMWVIAIUKJZ9453-48-46 06:06:000.1[facility] HermannHEMATOLOGY 2020-02-23 06:25:14761Aeejnsmh HermannCARDIAC GGJJOMY1868-07-56 15:43:0073 [facility] NroqjhsLRYLYHBXPR0751-11-86 15:43:001+ *ABN*(02/22/20 10:43 AM)[facility] BzpmyufOTZXMCVJQL9603-49-71 15:43:001+ (02/22/20 10:43 AM)[facility] VECJAPAWFK7440-91-24 15:43:000.2[facility] LnpkutbWCVEYXFXCB8494-12-27 15:43:000.2 [facility] HermannCHEM UWLYK2274-49-43 08:57:001.7[facility] HermannHEMATOLOGY 2020-02-22 08:57:000.1[facility] HermannCHEM SRKPU8810-98-57 04:33:003.8[facility] HermannCEFTRIAXONE:SUSC:PT:ISOLATE:ORDQN:NCP9731-52-70 04:08:00Enterobacter cloacaeMemorial HermannURINE AND FHPXX1739-32-58 02:52:00Light Yellow *NA*(02/21/20 9:52 PM)[facility]ann[facility] AND EBQTA1406-28-02 02:52:00Slight *ABN*(02/21/20 9:52 PM)[facility] AND ZJSGC7060-97-11 02:52:00 Test Item Value Reference Range Interpretation Comments UA Spec Grav (test code = UA Spec 1.015 1 Grav) [facility] AND SRKTI1653-73-19 02:52:00 Test Item Value Reference Range Interpretation Comments UA pH (test code = UA pH) 5.0 1 5.0-8.0 [facility] AND PHKQX9110-92-32 02:52:00Negative *NA*(02/21/20 9:52 PM) [facility] IKFRI9739-04-89 02:52:00Negative (02/21/20 9:52 PM) [facility] FVBVH7897-65-70 02:52:00<1.0[facility] AND WXDBD0300-60-91 02:52:00Positive *ABN*(02/21/20 9:52 PM)[facility] AND ULDZL4437-79-28 02:52:00Trace *ABN*(02/21/20 9:52 PM)[facility] AND MGJWX0978-91-69 02:52:0016[facility]annUR[facility] AND ORMYU7752-32-88 02:52:00 2[facility]ann[facility] AND SRUKF1467-84-26 02:52:003[facility] HermannCHEM PANEL 2020-02-22 00:49:002.9[facility] HejivqsYWLMGVJRKN8220-91-58 08:21:89723Nhmejjub BhglrvpYJFMRRJBCH4832-77-69 08:21:00 Test Item Value Reference Range Interpretation Comments PT (test code = PT) 14.2 s 12.0-14.7 Memorial HpxktpdJOHYKPQXXM5577-72-46 08:21:00 Test Item Value Reference Range Interpretation Comments INR (test code = INR) 1.10 1 0.85-1.17 [facility] GxallcqJRRBNPGNGG6848-97-41 08:21:00 Test Item Value Reference Range Interpretation Comments PTT (test code = PTT) 43.0 s 22.9-35.8 [facility] PerbvvpHFBVCPRVHP5291-95-29 08:21:88086Rlkocxeg HermannBLOOD BANK HTLDXPZ6617-59-52 14:31:00Negative (02/19/20 9:31 AM)[facility] HermannCHEM PANEL 2020-02-19 14:22:63658Ajauzyzb HermannCHEM HGFCQ7687-67-94 14:22:0015[facility] HermannCHEM YCZBN4294-66-30 14:22:000.67[facility] HermannCHEM UQVCF6764-10-25 14:22:89055Gwxzzufc HermannCHEM GGHHQ7064-15-37 14:22:003.6[facility] HermannCHEM CDCJY3390-96-83 14:22:80486Lxaswyrj HermannCHEM UGNOO5685-05-09 14:22:0029 [facility] BNSUA6615-47-66 14:22:008.4[facility] HermannCHEM PANEL 2020-02-19 14:22:008.6[facility] HermannCHEM PJPYR8078-17-83 14:22:0087[facility] HermannCHEM JVWQI5842-02-75 14:22:001.8[facility] HermannCHEM KILAW9812-11-24 14:22:002.5[facility] HnmahzrYILANFYYHL9010-82-85 14:22:00 Test Item Value Reference Range Interpretation Comments PT (test code = PT) 14.2 s 12.0-14.7 [facility]IdnzjzhPWYEYIDOCN8974-51-43 14:22:00 Test Item Value Reference Range Interpretation Comments INR (test code = INR) 1.10 1 0.85-1.17 [facility] HospitalJdyvobhXGHWLWMAOZ3716-53-64 14:22:00 Test Item Value Reference Range Interpretation Comments PTT (test code = PTT) 37.8 s 22.9-35.8 [facility] HospitalLbpxldtEERVTMZLJJ0157-06-27 14:22:72166Kkkvkkfo HermannHEMATOLOGY 2020-02-19 14:22:000.96[facility] CenterXtwfubfIPCZTGERMZ3193-69-32 14:22:00 Test Item Value Reference Range Interpretation Comments Thrombin Time (test code = Thrombin 25.6 s 15.0-21.2 Time) [facility] HospitalDkeovdyAMROTVKJHT3183-37-24 14:22:67249Enyoptjw HermannHEMATOLOGY 2020-02-19 14:22:00 Test Item Value Reference Range Interpretation Comments PT (test code = PT) 14.4 s 12.0-14.7 [facility] HospitalKkzywtiMSOVNAOKYF6066-21-82 14:22:00 Test Item Value Reference Range Interpretation Comments INR (test code = INR) 1.11 1 0.85-1.17 [facility] HospitalEpmeanfZDJKJNIWPI2872-17-43 14:22:00 Test Item Value Reference Range Interpretation Comments PTT (test code = PTT) 37.1 s 22.9-35.8 [facility] HospitalOkutmcxOPBASAWHFT2948-27-20 14:22:0018.9[facility] HermannHEMATOLOGY 2020-02-19 14:22:004.69[facility] IwbdrhaNDMHHUOZWU2992-42-33 14:22:0011.2[facility] StmnamuIGDBWPRDTW5137-76-00 14:22:0037.1[facility] BqfoblqRSDASRAPAK8235-16-89 14:22:0079.1[facility] TtyjiaiKRHDOQZIYX3059-62-17 14:22:00 Test Item Value Reference Range Interpretation Comments MCH (test code = MCH) 23.8 pg 27.0-31.0 [facility] VdmfjnrQQISUNQZLE0684-81-00 14:22:0030.1[facility] HermannHEMATOLOGY 2020-02-19 14:22:0018.7[facility] BoolxghTYUIKIFSKA3379-24-37 14:22:67235Mumbdzsx PzwfxgpLUZIWEMJRU7153-24-27 14:22:009.7[facility] RrmebznCCESOXWUJX1331-91-72 14:22:0061.0[facility] VpjxureNXKTCJHYNP0455-63-58 14:22:0030.5[facility] [place] BPVQHYSJUB0961-35-39 14:22:007.1[facility] IutozngTMNEHHJQDA2339-54-64 14:22:000.7 [facility] MxfhpzzRPVEYFNFAR5750-81-87 14:22:000.7[facility] HermannHEMATOLOGY 2020-02-19 14:22:0011.5[facility] UjhxqdhFASESUPLOX8327-43-31 14:22:005.8[facility] OxduvyhSJMVDMBBKY2771-26-41 14:22:001.3[facility] UjbunfaBYZHBTWJTP1822-28-67 14:22:000.1[facility] ZbmvkrmFZKTWWYJLB4074-86-13 14:22:000.1[facility] [place] PARATHYROID XPWNRIZ5667-09-23 14:22:001.11[facility] HermannPARATHYROID PROFILE 2020-02-19 14:22:001.12[facility] HermannCHEM MNIZH5512-99-60 09:08:003.5[facility] HermannCHEM KFMES9073-02-40 09:08:001.6[facility] HermannCHEM PPKUJ4282-13-79 09:08:81886Ufogeiov HermannCHEM WMMEX2985-47-80 09:08:0012[facility] HermannCHEM USIHK5301-29-63 09:08:000.67[facility] HermannCHEM HSYAJ9324-06-07 09:08:60428 [facility] HermannCHEM PJQZI8186-94-83 09:08:003.3[facility] HermannCHEM PANEL 2020-02-18 09:08:67889Jrpvwyfd HermannCHEM GBPNH1129-46-62 09:08:0028[facility] HermannCHEM LKPSL9486-89-87 09:08:008.7[facility] HermannCHEM OQZUF5688-59-80 09:08:0010.3[facility] HermannCHEM ZKSJS8282-66-15 09:08:0087[facility] NJEWKUXUST5662-10-10 09:08:00 Test Item Value Reference Range Interpretation Comments PT (test code = PT) 17.5 s 12.0-14.7 [facility] FrmnqjzLYRIBFWYVH9446-14-57 09:08:00 Test Item Value Reference Range Interpretation Comments INR (test code = INR) 1.42 1 0.85-1.17 [facility] YjcriqtPCULRTMZEC9501-73-05 09:08:00 Test Item Value Reference Range Interpretation Comments PTT (test code = PTT) 82.9 s 22.9-35.8 [facility] BsfdmnpTTUFYXSHAY4798-16-79 09:08:000.68[facility]annHEMATOLOGY 2020-02-18 09:08:09268Lkzcexvp VprpwfmHSRIQPYFOB5570-83-18 09:08:0016.3[facility] PslsbdxPMLKMVAFSB3419-20-44 09:08:004.72[facility] IhvveqxOWYHTSVUOU0560-14-99 09:08:0011.4[facility] LacxuttYYYHDYMTXI5423-19-55 09:08:0037.0[facility] QPKLNBBAVR2879-43-83 09:08:0078.4[facility] QuqiyrxWSUGEGWCKH7203-89-11 09:08:00 Test Item Value Reference Range Interpretation Comments MCH (test code = MCH) 24.1 pg 27.0-31.0 [facility] JdjlzqaWLCCOCXESQ2248-59-62 09:08:0030.7[facility]annHEMATOLOGY 2020-02-18 09:08:0018.3[facility] GvlyvadHMZNATNTSX5827-24-01 09:08:78283Kpxexhfv HetsdsxRMJUEAJFYI3275-56-85 09:08:009.7[facility] JywmhjaFRDBRIZGCR6070-32-13 09:08:0066.2[facility] CoagjfmAPBVPVYKPH6179-99-02 09:08:0023.2[facility] WGRZVBKPPO9384-95-65 09:08:009.3[facility] BchplzyLJMNGWEKRP1021-00-70 09:08:000.8 [facility] TofflywDUZTCSNSJR1858-92-25 09:08:000.5[facility]annHEMATOLOGY 2020-02-18 09:08:0010.8[facility] UzosmfdIKYPSSWJLU9027-14-12 09:08:003.8[facility] RenfttaSCLNYZLBFV1334-56-28 09:08:001.5[facility] StdboadJGAGFLAKEN3155-91-86 09:08:000.1[facility] ZulnbpwALGTQVODRX7582-55-53 09:08:000.1[facility] IIJJJPKOPP7246-88-50 09:08:001+ *ABN*(02/18/20 4:08 AM)[facility] PARATHYROID AGJVIJI7228-80-18 09:08:001.13[facility]annPARATHYROID PROFILE 2020-02-18 09:08:001.12[facility] XaxtbfuDAPBCMZPBX8559-24-00 17:25:00Not Detected (02/17/20 12:25 PM)[facility] DIEDSSE9213-81-15 17:10:00Result Note 4(02/17/20 12:10 PM)[facility] IVABSMN6246-32-60 17:10:00 Positive (02/17/20 12:10 PM)[facility]annCARDIAC XMZLQPG9770-77-28 17:10:0025 [facility]annCHEM NPKMD8082-43-57 17:10:003.0[facility]annCHEM PANEL 2020-02-17 17:10:09035Izqcittj HermannCHEM ODAVW0764-93-69 17:10:0011[facility]annCHEM PHJZT1858-71-89 17:10:000.68[facility]annCHEM ZITMF4681-92-64 17:10:33391Sanvmcju HermannCHEM EHIRS0190-22-88 17:10:003.4[facility]annCHEM INUOH8487-52-46 17:10:83972Ftfevcxo HermannCHEM GQWKB2531-29-95 17:10:0031 [facility]annCHE[facility] HOKKV7804-64-09 17:10:008.4[facility]annCHEM PANEL 2020-02-17 17:10:006.4[facility]annCHEM NRPSD2128-67-63 17:10:0087[facility]annCHEM RBUWK9537-04-51 17:10:00<0.05[facility]annCHEM DJSKO6661-54-96 17:10:001.6[facility] MgklybiELYNLHJDLP5215-41-91 17:10:0016.0[facility] IRHJARVELW9719-91-50 17:10:005.23[facility] DgyfkkhABYDWSWFQH8957-05-82 17:10:00 12.7[facility] HsqkgvfTCIBHHNCIN1481-41-65 17:10:0041.4[facility]annHEMATOLOGY 2020-02-17 17:10:0079.1[facility] AruklhlGWMBKPGXVF7032-75-34 17:10:00 Test Item Value Reference Range Interpretation Comments MCH (test code = MCH) 24.4 pg 27.0-31.0 [facility] IaxyhmcVJABPPPBQB7506-68-58 17:10:0030.8[facility]annHEMATOLOGY 2020-02-17 17:10:0018.3[facility] RyengedOFHZAIPJWC4826-49-93 17:10:07920Ikqfqnfu FpgvqtaOUIOBLUAUN2376-61-71 17:10:0010.1[facility] FzvhlmxZHWRORJABJ8549-73-84 17:10:0084.7[facility] UhtykyvKSFDINQBZG7545-44-71 17:10:009.3[facility] NHBJVISZSD6061-82-02 17:10:005.0[facility] IaxtalbJMVOYVBEPO0346-93-26 17:10:000.5 [facility] GvorazrRWTSSZOSCZ9374-04-50 17:10:000.5[facility] HermannHEMATOLOGY 2020-02-17 17:10:0013.6[facility] HwvgusgZKLJKQYJWV6096-60-75 17:10:001.5[facility] MihelbtOHNDXHZOAU3503-52-72 17:10:000.8[facility] HuvvxgpZBOTFLBCMX5311-31-09 17:10:000.1[facility] CplbhzwWYTASW8888-10-27 17:10:59205Uytdsrvr HermannLIPIDS 2020-02-17 17:10:78805Uvokcvci YbdrrsnHWPYMZ6836-94-46 17:10:0054[facility] VsiutoqAZWASC3026-22-17 17:10:00 Test Item Value Reference Range Interpretation Comments CHD Risk (test code = CHD Risk) 2.85 1 3.90-5.80 [facility] WstuecuSIPWFI0837-38-07 17:10:0069[facility] WhxqltzUXERHA9493-15-54 17:10:00 Test Item Value Reference Range Interpretation Comments VLDL (test code = VLDL) 31 1 [facility] JOECC2806-33-34 03:29:00Yellow *NA*(02/15/20 10:29 PM) [facility] CYBEA3535-03-37 03:29:00Marked *ABN*(02/15/20 10:29 PM) [facility] QOHDO0847-38-57 03:29:00 Test Item Value Reference Range Interpretation Comments UA Spec Grav (test code = UA Spec 1.015 1 Grav) [facility] SYRBY2150-18-00 03:29:00 Test Item Value Reference Range Interpretation Comments UA pH (test code = UA pH) 7.0 1 5.0-8.0 [facility] SKBXT2321-89-69 03:29:00Negative *NA*(02/15/20 10:29 PM)[facility] WGVFA7900-36-10 03:29:00Negative (02/15/20 10:29 PM) [facility] YKVSM1601-74-73 03:29:00<1.0[facility] WBUPO6580-98-03 03:29:00Negative (02/15/20 10:29 PM)[facility] HFRIL2005-50-48 03:29:00Negative (02/15/20 10:29 PM)[facility] GMZJQ5401-60-35 03:29:001[facility] FBMOS6148-56-56 03:29:001 [facility] FPRHQ8018-39-94 03:29:003[facility] HermannCHEM PANEL 2020-02-16 02:49:005.8[facility] HermannCHEM IUUHE9628-54-26 02:49:002.4[facility] HermannCHEM CIMWY1633-97-04 02:49:0026[facility] HermannCHEM ZVUIP0753-51-76 02:49:0016[facility] HermannCHEM PRXPR8378-20-19 02:49:36089Xyvdklqd HermannCHEM BTUDG9779-44-30 02:49:000.3[facility] HermannCHEM DQCMD7413-62-81 02:49:00 Test Item Value Reference Range Interpretation Comments B/C Ratio (test code = B/C Ratio) 25 1 6-25 [facility]annCHE[facility] NEBGT9630-99-03 02:49:003.4[facility] HermannCHEM PANEL 2020-02-16 02:49:00 Test Item Value Reference Range Interpretation Comments A/G Ratio (test code = A/G Ratio) 0.7 1 0.7-1.6 [facility] HermannPOC-Glucose dcgsg6550-19-21 13:34:00 Test Item Value Reference Range Interpretation Comments POC-Glucose Meter (test 101 mg/dL 70-110 : TE STED AT [facility] code = 1538) [address] [facility], 770 30: Field Marketer/Techni ras ID = [id number] for LENNOX OSBORN Lab Interpretation (test Normal code = 06771-9) [facility] NQVXN7574-24-11 13:34:00 Test Item Value Reference Range Interpretation Comments POC-GLUCOSE METER 101 mg/dL 70-110 : TESTED A T [facility] 6720 (BEAKER) (test code = KLEVER Rogers [facility], 1538) [address]: Field Marketer/Techni ras ID = [id number] for LENNOX RAMOS Urine jpuxita6262-20-94 10:36:00 Test Item Value Reference Range Interpretation Comments Result (test code = See comment 6463-4) ZIA (test code = >100,000 col/mL enteric ZIA) organisms of >3 types. No further workup performed. Multiple organisms suggestive of colonization or contamination. Repeat collection recommended. [facility] SUPIS2106-13-66 08:50:00 Test Item Value Reference Range Interpretation Comments POC-GLUCOSE METER 100 mg/dL 70-110 : TESTED A T [facility] 6720 (BEAKER) (test code = KLEVER Rogers [facility], 1538) [address]: Field Marketer/Techni ras ID = [id number] for LENNOX RAMOS POCT-GLUCOSE YMEUL5067-91-33 06:33:00 Test Item Value Reference Range Interpretation Comments POC-GLUCOSE METER 184 mg/dL 70-110 H : TESTED A T [facility] 6720 (BEAKER) (test code = [facility] Sue [facility], 1538) [address]: Field Marketer/Techni ras ID = [id number] for DO RACHEL REDD CBC with platelet count + automated gipi3476-78-34 06:31:00 Test Item Value Reference Range Interpretation [...] 450 K/CU MM MPV (test code = 75325-2) 12.4 fL 9.4-12.3 H nRBC (test code [...] 2801) Lab Interpretation (test code = Abnormal 59751-9) [facility] W/PLT COUNT & AUTO YPPCXZQUMBQD8627-17-89 06:31:00 Test Item Value Reference Range Interpretation [...] PERCENT (BEAKER) (test code = 2801) POCT-GLUCOSE [id number] 18:19:00 Test Item Value Reference Range Interpretation Comments POC-GLUCOSE METER 148 mg/dL 70-110 H : TESTED A T [facility] 6720 (BEAKER) (test code = [place]LE[place], 1538) [address]: Field Marketer/Techni ras ID = [id number] for HU NT, MAGGIE Urinalysis w/Microscopic + Reflex to Zwyrtyx3988-22-13 15:46:00 Test Item Value Reference Range Interpretation Comments Color, UA (test code = Yellow 5778-6) Clarity, UA (test code = Hazy 5767-9) Specific [place], UA 1.028 1.001-1.035 (test code = 5811-5) pH, UA (test code = 6.0 5.0-8.0 5803-2) Protein, UA (test code = 30 mg/dL Negative A 31493-9) Glucose, UA (test code = Negative Negative 365) Ketones, UA (test code = Negative Negative 2514-8) Bilirubin, UA (test code Negative Negative = 36830-4) Blood, UA (test code = Negative Negative 66664-7) Nitrite, UA (test code = Negative Negative 5802-4) Leukocytes, UA (test code Moderate Negative A = 5799-2) Urobilinogen, UA (test 0.2 mg/dL 0.2-1 code = 96211-5) RBC, UA (test code = 2 /HPF 08814-8) WBC, UA (test code = 28 /HPF 5821-4) Mucus (test code = Occasional 8247-9) Squam Epithel, UA (test 1 /HPF code = 24786-3) Hyaline Casts, UA (test 1 /LPF code = 19470-7) Ca Oxalate Jagruti, UA (test Occasional code = 52491-7) Specimen Source (test code = 2795) ZIA (test code = ZIA) Field Marketer ID - [auto]Field Marketer ID - [id number] Lab Interpretation (test Abnormal code = 37847-9) [facility]FLEX URINE CDWFDUF0122-21-71 15:46:00 Test Item Value Reference Range Interpretation [...] = 518) SOURCE(BEAKER) (test code = 2795) Field Marketer ID - [auto]Field Marketer ID - hankPOCT-GLUCOSE ERILI8506-96-85 12:47:00 Test Item Value Reference Range Interpretation Comments POC-GLUCOSE METER 128 mg/dL 70-110 H : TESTED A T [facility] 6720 (BEAKER) (test code = [facility], 1538) [address]: Field Marketer/Techni ras ID = [id number] for Elizabeth Valladares POCT-GLUCOSE BIBHA1426-20-34 12:34:00 Test Item Value Reference Range Interpretation Comments POC-GLUCOSE METER 131 mg/dL 70-110 H : TESTED A T [facility] 6720 (BEAKER) (test code = [facility], 1538) [address]: Field Marketer/Techni ras ID = [id number] for RO DGERS, JAMECA FL, ESOPH, SWALLOW FUNCTION, WITH CINE OR [id number] 12:20:00Reason for exam:->dysphagiaFINAL REPORT EXAMINATION: Modified barium [...] MDReport Verified Date/Time: 02/14/2020 12:20:00 Reading Location: [address] Reading Room [place] esoph swallow funct with cine vcszg3043-86-93 12:20:00Interface, External Ris In - 02/14/2020 12:22 [...] MDReport Verified Date/Time: 02/14/2020 12:20:00 Reading Location: [address] Transitional Reading Room [facility] W/PLT COUNT & AUTO PBWUJAVBIBIK0264-39-12 04:50:00 Test Item Value Reference Range Interpretation [...] PERCENT (BEAKER) (test code = 2801) POCT-GLUCOSE BFZGW0418-17-19 01:00:00 Test Item Value Reference Range Interpretation Comments POC-GLUCOSE METER 261 mg/dL 70-110 H : TESTED A T [facility] 6720 (BEAKER) (test code = [facility], 1538) [address]: Field Marketer/Techni ras ID = [id number] for DO RACHEL REDD POCT-GLUCOSE QCPMU0400-80-94 17:38:00 Test Item Value Reference Range Interpretation Comments POC-GLUCOSE METER 396 mg/dL 70-110 H : TESTED A T [facility] 6720 (BEAKER) (test code [facility], = 1538) [address]: Field Marketer/Techni ras ID = [id number] for LEILA LEDESMA RAD, CHEST, 2 UJTZO9234-45-23 12:51:00Reason for exam:->evaluate position of left chest [...] [place] Verified Date/Time: 02/13/2020 12:51:24 Reading Location: [facility] Radiology Reading Room XR chest 2 nzclj6950-16-63 12:51:00Interface, External Ris In - 02/13/2020 12:53 [...] [place] MDReport Verified Date/Time: 02/13/2020 12:51:24Reading Location: [facility] Radiology Reading [facility] NDSEJ6643-13-06 08:20:00 Test Item Value Reference Range Interpretation Comments POC-GLUCOSE METER 180 mg/dL 70-110 H : Notified RN/MD: TESTED (KATHLEEN) (test code AT [address] = 1538) [place] [address]: Field Marketer/Techni ras ID = [id number] for TSEG GAI, TSIGHEREDA POCT-GLUCOSE [id number] 23:11:00 Test Item Value Reference Range Interpretation Comments POC-GLUCOSE METER 254 mg/dL 70-110 H : Notified RN/MD: (KATHLEEN) (test code = TESTED AT [place] [address] 1538) [place] [address]30: Field Marketer/Techni ras ID = [id number] for LATHBRIDGE, MARIA ICE POCT-GLUCOSE [id number] 17:32:00 Test Item Value Reference Range Interpretation Comments POC-GLUCOSE METER 386 mg/dL 70-110 H : Notified RN/MD: TESTED (KATHLEEN) (test code AT [address] = 1538) [place] [address]: Field Marketer/Techni ras ID = [id number] for TSEG GAI, TSIGHEREDA RAD, CHEST, 1 VIEW, NON [id number] 14:59:00Reason for exam:->concern for aspirationShould this be [...] Maxwell Verified Date/Time: 02/12/2020 14:59:34 Reading Location: [address] Body Reading Room XR chest 1 view portable / cgiiuyx8978-67-45 14:59:00Interface, External Ris In - 02/12/2020 3:01 [...] Maxwell Verified Date/Time: 02/12/2020 14:59:34 Reading Location: [facility] C013Y CT Body Reading Room Electronicallysigned by: MEHNAZ MAXWELL MD on 02/12/2020 02:59 PMCH[facility]TS[facility] T4 If Sdzehxqch2034-85-84 13:50:00 Test Item Value Reference Range Interpretation Comments TSH (test code = 87844-0) 1.158 0.350- 4.940 uIU/mL Lab Interpretation (test code = Normal 21330-5) [facility] T4 IF [id number] 13:50:00 Test Item Value Reference Range Interpretation Comments THYROID STIMULATING HORMONE 1.158 uIU/mL 0.350-4.940 (BEAKER) (test code = 772) Comprehensive metabolic nzzja2123-51-64 12:44:00 Test Item Value Reference Range Interpretation Comments Protein, Total (test 4.8 6.0- 8.3 gm/dL L Speci men slightly code = 2885-2) hemolyzed Albumin (test code = 2.9 g/dL 3.5-5 L Specime n slightly 04962-7) hemolyzed Alkaline Phosphatase 174 U/L 40-150 H (test code = 6768-6) Total Bilirubin (test 0.3 mg/dL 0.2-1.2 Specim en slightly code = 1975-2) hemolyzed Sodium (test code = 140 meq/L 318-659 8272-2) Potassium (test code = 3.6 meq/L 3.5-5.1 [...] (test code = 8.2 mg/dL 8.4-10.2 L 56383-7) AST (test code = 32 U/L 5-34 Specimen sl ightly 1920-8) hemolyzed ALT (test code = 31 U/L 6-55 Specimen sl ightly 1742-6) hemolyzed EGFR (test code = 127 mL/min/1.73 [place] [address]-0) NOT ACCURATE CREATININE CLEARANCE IN PREDICTING GLOMERULAR FILTRATION RATE . ESTIMATED GFR I S NOT APPLICABLE FOR DIALYSIS PATIEN TS. Lab Interpretation Abnormal (test code = 20593-9) [facility] HospitalCOMPREHENSIVE METABOLIC [id number] 12:44:00 Test Item Value Reference Range Interpretation [...] 29-200 Lab Interpretation (test code = Normal 08284-1) [facility] HospitalLactate dehydrogenase (LDH)2020-02-12 12:29:00 Test Item Value Reference Range Interpretation Comments LDH (test code = 2532-0) 401 U/L 125-220 H Spe cimen slightly hemolyzed Lab Interpretation (test Abnormal code = 84300-5) [facility] HospitalLACTATE DEHYDROGENASE (LDH)2020-02-12 12:29:00 Test Item Value Reference Range Interpretation Comments LACTATE DEHYDROGENASE 401 U/L 125-220 H Specim en slightly (BEAKER) (test code = hemoly zed 635) CREATINE KINASE (CK)2020-02-12 12:29:00 Test Item Value Reference Range Interpretation Comments CREATINE KINASE TOTAL (BEAKER) (test 47 U/L 29-200 code = 380) Vitamin [id number] 12:28:00 Test Item Value Reference Range Interpretation Comments Vitamin B12 (test code = 2132-9) 486 pg/mL 213-816 Lab Interpretation (test code = Normal 45672-2) [facility] HospitalVITAMIN [id number] 12:28:00 Test Item Value Reference Range Interpretation Comments VITAMIN B12 (BEAKER) (test code = 486 pg/mL 213-816 774) POCT-GLUCOSE [id number] 12:20:00 Test Item Value Reference Range Interpretation Comments POC-GLUCOSE METER 147 mg/dL 70-110 H : TESTED A T [facility] 6720 (BEAKER) ([facility], = 1538) [address]: Field Marketer/Techni ras ID = [id number] for LEILA LEDESMA SARS-CoV2/RT-PCR (Asymptomatic ONLY)2020-02-12 12:08:00 Test Item Value Reference Range Interpretation Comments SARS-COV2/RT-PCR Negative Not Detected, (test code = Negative, See 69171-1) external report for linked test SARS-COV-2 [facility] PERFORMING LAB (test code = 83419-4) ZIA (test code = Negative result for [...] of the Act. Fact Sheet for Healthcare Providers:https://www.Outbrain/sites/default/f humble/product/documents/F act_Sheet_HC_Providers_L klu_JHXL-DmN-8.pdf Fact Sheet for Healthcare Patients:https://www.[employer].Opendisc/sites/default/fi les/product/documents/Fa ct_Sheet_Patients_Lyra_S ARS-CoV-2.pdf Performing Laboratory:[facility] [place] [address] [facility] CenterARS-[facility]OV2/RT-PCR ([facility])2020-02-12 12:08:00 Test Item Value Reference Range Interpretation Comments SARS-COV2/RT-PCR (test Negative Not Detected, Negative, code = 5033019) See external report for linked test SARS-COV-[address] [facility] (test code = 0193905) Negative result for this test determines that [...] 564(g) of the Act.Fact Sheet for Healthcare Providers:https://www.SocialCompare.com/sites/default/files/product/documents/Fact_Shee m_PK_Rasbzivub_Jfje_KCBN-QtH-0.pdfFact Sheet for Healthcare Patients:https://www.SocialCompare.com/sites/default/files/product/ documents/Avhg_Bbvhk_Noctptsj_Qdxe_TUAA-IgL-2.pdfPerforming Laboratory:[facility], [place] [address]PQWZ-ATEWZSU METER 2020-02-12 09:52:00 Test Item Value Reference Range Interpretation Comments POC-GLUCOSE METER 74 mg/dL 70-110 : TESTED A T [facility] 6720 (BEAKER) (test code [place], = 1538) [address]: Field Marketer/Techni ras ID = [id number] for LEILA LEDESMA CBC W/PLT COUNT & AUTO IOCLEXIEEWKB8491-20-85 09:04:00 Test Item Value Reference Range Interpretation [...] 0-1 PERCENT (BEAKER) (test code = 2801) JWZFHWFUUK7948-73-12 17:18:00Not Detected (12/20/19 12:18 PM)[facility] CARDIAC TRHSJZE8641-09-79 10:06:000.02[facility] HermannCHEM NOMSB4628-49-38 10:06:47180Qktayufi HermannCHEM UCNUF0306-48-06 10:06:0010[facility] HermannCHEM FJSIA0303-89-46 10:06:000.64[facility] HermannCHEM HDUNL7052-12-14 10:06:24018 [facility] HermannCHEM IPTKZ8044-23-20 10:06:003.9[facility] HermannCHEM PANEL 2019-12-18 10:06:79284Cujxztiz HermannCHEM FVHJJ0673-34-51 10:06:0028[facility] HermannCHEM PQUSC3562-75-68 10:06:0010.9[facility] HermannCHEM SFOBV4448-67-68 10:06:008.3[facility] HermannCHEM WLCLT8760-45-01 10:06:0089[facility] HermannCHEM GZJDG9515-59-87 10:06:002.1[facility] HermannCHEM EFOQT9209-61-78 10:06:003.2 [facility] WhxlvbmLOCRBEXBRU6177-25-40 10:06:009.9[facility] HermannHEMATOLOGY 2019-12-18 10:06:003.09[facility] KvcoocsXVGEGZPSEA6269-23-43 10:06:009.1[facility] XbmqfdgPYWHHBDORI3825-94-83 10:06:0028.9[facility] CbabyehGQGNRJLYCZ0769-68-19 10:06:0093.7[facility] IjoebngTOPXQQMAOU5207-88-71 10:06:00 Test Item Value Reference Range Interpretation Comments MCH (test code = MCH) 29.4 pg 27.0-31.0 Memorial XxhjnidKGSZDYOKYJ3525-58-85 10:06:0031.4[facility] HermannHEMATOLOGY 2019-12-18 10:06:0016.7[facility] ZivhuunWDKBWHCTTH9489-53-34 10:06:15927Lzpnmdsf AjxiefeEAIGAGUYZK4133-46-57 10:06:0010.2[facility] GlqakwzJWWBWQCPMJ9040-31-93 10:06:0066.2[facility] CbwjpmoTIIZXUXWWL9114-50-70 10:06:0023.0[facility] BHTBYLAGUR2269-77-43 10:06:008.2[facility] SfhmdbrTYFUQLQNWW1798-61-21 10:06:001.2 Memorial NhkmmxgEUBDIWDCKU7472-24-73 10:06:001.4[facility] HermannHEMATOLOGY 2019-12-18 10:06:006.5[facility] DgniruzIPCEJLNAMQ2704-79-05 10:06:002.3[facility] SldvyoaDHRCLUSVYI5428-63-28 10:06:000.8[facility] BppdqhlLEDERPVSAT6440-72-95 10:06:000.1[facility] CddktymPXHODECIXA9399-24-06 10:06:000.1[facility]annURINE AND FZCAG4993-80-64 10:06:00Dark Yellow *NA*(12/18/19 5:06 AM)[facility] URINE AND JSTLJ0594-09-66 10:06:00Slight *ABN*(12/18/19 5:06 AM)[facility] URINE AND QAWGP5244-69-05 10:06:00 Test Item Value Reference Range Interpretation Comments UA Spec Grav (test code = UA Spec 1.018 1 Grav) [facility] AND OLHYM5654-15-51 10:06:00 Test Item Value Reference Range Interpretation Comments UA pH (test code = UA pH) 6.0 1 5.0-8.0 [facility] AND BBLBY1087-58-26 10:06:00Negative *NA*(12/18/19 5:06 AM) [facility] AND XREWR6525-44-15 10:06:00Negative (12/18/19 5:06 AM) [facility] AND PYRQB1742-50-47 10:06:004.0[facility] AND UZMFY7492-04-16 10:06:00Negative (12/18/19 5:06 AM)[facility] AND DDMMJ8702-07-73 10:06:00Negative (12/18/19 5:06 AM)[facility] AND KEMGZ9038-64-48 10:06:0010[facility]annURINE AND CREFK1721-66-59 10:06:002 [facility] AND IUAPZ6553-72-90 10:06:007[facility] HermannCHEM PANEL 2019-12-17 16:05:33471Qmoklhds HermannCHEM CIHUY7858-38-64 16:05:0011[facility] HermannCHEM CFWLQ4490-94-76 16:05:000.80[facility] HermannCHEM MRMNE7329-80-34 16:05:15039Rjjhzziw HermannCHEM VRYEY8844-25-14 16:05:003.4[facility] HermannCHEM GBEFB4885-24-70 16:05:07916Bmporarq HermannCHEM QCREB9852-94-07 16:05:0031 [facility] HermannCHEM ZQEWO4675-41-04 16:05:008.2[facility] HermannCHEM PANEL 2019-12-17 16:05:007.4[facility] HermannCHEM OUVIG9832-50-11 16:05:0074Mem[facility] HermannCHEM TWLMN1179-66-64 16:05:001.9[facility] HermannCHEM FTXOY5385-95-39 16:05:002.8[facility] SwzpdbuKSCCISVWQQ4092-29-84 16:05:008.9[facility] CIQVJYGLSC9406-91-95 16:05:003.03[facility] LkrgifyBZYGARSKGU9493-76-60 16:05:00 9.3Memorial WoleqhhEWRQVOJEJN1131-05-01 16:05:0028.4[facility] HermannHEMATOLOGY 2019-12-17 16:05:0093.8[facility] LctxkltDUPGHGLFIP8642-52-29 16:05:00 Test Item Value Reference Range Interpretation Comments MCH (test code = MCH) 30.7 pg 27.0-31.0 Memorial RqnepgrAFVQMUXNWS8677-73-99 16:05:0032.8[facility] HermannHEMATOLOGY 2019-12-17 16:05:0016.9[facility] SfttvweJHCYZZFSTS7012-01-45 16:05:47331Ccljgetb FhlktxfMOLGNTARCC5286-32-66 16:05:009.7[facility] KbgbnixLOPGMHZBTW6285-49-23 16:05:0071.0[facility] NasmdqzIQQVALYIDS5243-78-66 16:05:0016.3[facility] TBSYZCZZXW9849-07-31 16:05:006.5[facility] MsvxmaaAWIFIHXOWK9184-08-58 16:05:004.0 Memorial RphujsiSBCOUICMZR5948-89-91 16:05:002.2[facility] HermannHEMATOLOGY 2019-12-17 16:05:006.3[facility] DzljnwaUJEAYTIVZK2186-87-34 16:05:001.4[facility] UmnnqgoWOFKAKJIRG1401-87-16 16:05:000.6[facility] EptjlxdVUGZNVGNXO1738-24-12 16:05:000.4[facility] YrukyytTGJCFNWOTW9352-75-76 16:05:000.2[facility] CARDIAC ZHXZOQS5208-75-61 05:24:000.03[facility] HermannCHEM WWXNI4632-35-68 05:24:58263Suriiyyk HermannCHEM TVFKR2740-05-37 05:24:0012[facility] HermannCHEM GEXZH0348-74-28 05:24:000.59[facility] HermannCHEM RZSWR9231-42-18 05:24:83599 [facility] HermannCHEM XECQA8506-58-39 05:24:003.9[facility] HermannCHEM PANEL 2019-12-15 05:24:55364Dwoipsij HermannCHEM NMVOD5069-94-86 05:24:0034[facility] HermannCHEM NSCIG2526-09-37 05:24:008.3[facility] HermannCHEM TIXMU9647-48-42 05:24:008.9[facility] HermannCHEM CYAKV4528-12-74 05:24:0092Mem[facility] HermannCHEM HSFDH8129-43-52 05:24:002.1[facility] HermannCHEM IYITY1500-15-59 05:24:002.4 Memorial VmbbgfdUHDYSHFEOK7542-27-54 05:24:0011.9[facility] HermannHEMATOLOGY 2019-12-15 05:24:003.25[facility] PxtmyanGGDOQZEPYR0931-46-17 05:24:009.5[facility] GckvemcFZGADDENRS0913-79-90 05:24:0030.4[facility] GylzzwwPLBKLYYAHN6535-04-78 05:24:0093.5[facility] NpxtjayOPKQJYTEQQ7242-22-53 05:24:00 Test Item Value Reference Range Interpretation Comments MCH (test code = MCH) 29.3 pg 27.0-31.0 Memorial JrxfgvgPQHCWHDIZR4493-90-18 05:24:0031.4[facility] HermannHEMATOLOGY 2019-12-15 05:24:0017.3[facility] DkerxayAFIHDBPAFR3085-88-40 05:24:03319Ylifmhih LcfpjfkFHGVQNRAZM8096-75-91 05:24:0010.2[facility] CykndsqTUORAFWEYU8293-72-66 05:24:0069.3[facility]orial ZtcmxsyYQGBGAPLLO6569-54-62 05:24:0018.5[facility] CWTSNKPVLJ8532-18-49 05:24:007.6[facility] QcsbbrcDJTJVUKEPQ9419-38-21 05:24:003.8 [facility] VorwoinRUORMTCUKQ5390-15-88 05:24:000.8[facility] HermannHEMATOLOGY 2019-12-15 05:24:008.3[facility] ZfufnlcWNJLFRANOV9595-05-46 05:24:002.2[facility] LgbwmepEGDLSHULQC3391-71-81 05:24:000.9[facility] HweudhmBKFLGGZNON4875-45-07 05:24:000.5[facility] SprtxvbWORFPUZWVD6567-03-52 05:24:000.1[facility] BTCGXEPQAV8905-64-81 11:58:00Normal (12/14/19 6:58 AM)[facility] HermannHEMATOLOGY 2019-12-14 11:58:00Normal (12/14/19 6:58 AM)[facility] HermannCHEM ZRKJD2808-86-10 15:50:005.2[facility]annCHEM JGGBF1797-57-92 15:50:002.2[facility]annCHEM USCTE5970-11-03 15:50:0022[facility]annCHEM FJXEB7977-00-45 15:50:0013 [facility]annCHEM STSNK9203-32-71 15:50:11081Qnwhkdte HermannCHEM PANEL 2019-12-11 15:50:000.9[facility]annCHEM VSFZE9617-59-30 15:50:00 Test Item Value Reference Range Interpretation Comments B/C Ratio (test code = B/C Ratio) 25 1 6-25 [facility]CHE[facility] [id number] 15:50:003.0[facility]annCHEM PANEL 2019-12-11 15:50:00 Test Item Value Reference Range Interpretation Comments A/G Ratio (test code = A/G Ratio) 0.7 1 0.7-1.6 [facility]annBODY [id number] 17:45:00Positive *ABN*(12/09/19 12:45 PM) [facility] SbqhthhFZOGTNKDNU1243-63-82 16:46:00Normal (12/09/19 11:46 AM)[facility] OaaqgljVUTHEEEHNA8068-60-19 16:46:00Normal (12/09/19 11:46 AM)[facility] CHEM HINQP6518-40-06 05:23:004.5[facility]annCHEM UQBMQ4571-12-27 05:23:002.5 [facility]annCHE[facility] AXGCM0602-12-38 05:23:0027[facility]annCHEM PANEL 2019-12-07 05:23:0011[facility]annCHEM YLSQI8088-28-14 05:23:0082[facility]annCHEM XKTME6289-20-91 05:23:000.8[facility]annCHEM NJFWE3284-33-34 05:23:000.3[facility]annCHEM WISPT4711-94-84 05:23:000.5[facility]annCHEM LNTWW8726-82-21 05:23:002.0[facility]annCHEM CUGDD0905-27-24 05:23:00 Test Item Value Reference Range Interpretation Comments A/G Ratio (test code = A/G Ratio) 1.2 1 0.7-1.6 [facility]annPARATHYROID FERHYST1378-14-30 05:23:001.05[facility] PARATHYROID DIZUYWS2297-06-92 05:23:001.09[facility] VjuwvykDSOAUMTLFS0536-24-84 05:37:00 Test Item Value Reference Range Interpretation Comments PTT (test code = PTT) 31.1 s 22.9-35.8 [facility] XgrzcciPSDKDAQLTL9812-64-21 05:37:00 Test Item Value Reference Range Interpretation Comments PT (test code = PT) 15.3 s 12.0-14.7 [facility] LubjqohRHQFBTNPPH3818-97-22 05:37:00 Test Item Value Reference Range Interpretation Comments INR (test code = INR) 1.20 1 0.85-1.17 [facility]annPARATHYROID JRGOOGF6550-75-29 05:21:001.06[facility] PARATHYROID YGRPNCH5619-90-91 05:21:001.10[facility]annBLOOD BANK RESULTS 2019-12-05 22:53:00Product available (12/05/19 5:53 PM)[facility] thereNowannHEMATOLOGY 2019-12-05 22:43:00See Note 1(12/05/19 5:43 PM)[facility] thereNowannHEMATOLOGY 2019-12-05 22:43:001+ *ABN*(12/05/19 5:43 PM)[facility]BL[facility]ANK RESULTS 2019-12-05 22:21:00Product available (12/05/19 5:21 PM)[facility] HermannBLOOD BANK [id number] 06:02:00Negative (12/05/19 1:02 AM)[facility] thereNowannBLOOD BANK [id number] 06:02:00Result Note 5(12/05/19 1:02 AM)[facility] VNNAXLJFLK0171-81-77 06:02:00 Test Item Value Reference Range Interpretation Comments PT (test code = PT) 12.8 s 12.0-14.7 [facility] NdcakoxXDHZPTTNLK2864-10-11 06:02:00 Test Item Value Reference Range Interpretation Comments INR (test code = INR) 0.96 1 0.85-1.17 [facility] QuybzepLKCQPFPIBX9911-31-24 06:02:00 Test Item Value Reference Range Interpretation Comments PTT (test code = PTT) 28.3 s 22.9-35.8 [facility] WKCVJ3994-20-94 09:52:33635Tbzuomgu HermannCHEM PANEL 2019-12-01 09:52:0016[facility] LUECU3713-27-19 09:52:000.75[facility] ZXRVO6314-03-70 09:52:73027Mmvjqrqp [facility] NRDZU9092-59-04 09:52:003.7[facility] DLBHY7498-74-46 09:52:89747Djpagehp [facility]annCHE[facility] JIHAA9322-31-58 09:52:0029[facility]ann[facility] ARKYA8691-85-03 09:52:008.3 [facility] XFDRC9014-68-62 09:52:0010.7[facility]annCHEM PANEL 2019-12-01 09:52:0080[facility] BcvtqeuDETMNHVMUK5864-50-86 09:52:0011.0[facility] WkgfjazHCTYDRJBYS2525-01-70 09:52:004.45[facility] TjqajhvXWVFAVFECA8058-50-78 09:52:0013.7[facility] EjjpyemJNVGRQHZAN4717-56-70 09:52:0041.0[facility] NEBKMQMZIS6566-92-35 09:52:0092.1[facility] CxvfuhpBRAKZSUNQI4317-64-09 09:52:00 Test Item Value Reference Range Interpretation Comments MCH (test code = MCH) 30.7 pg 27.0-31.0 [facility] SmpgzwfTWREPEYXBO9846-12-67 09:52:0033.4[facility]annHEMATOLOGY 2019-12-01 09:52:0016.7[facility] PxwylmkMQVNTKFGAT3648-54-79 09:52:65390Ylcvnwpt ZzfyoqcIHRMTRKNEZ7856-21-86 09:52:009.6[facility] VgzkycrEHZBMJKKBC1065-96-15 09:52:0067.9[facility] OojwbrhODOBETUPXR0164-00-10 09:52:0020.7[facility] XKSKYXDFNO4376-60-80 09:52:009.8[facility] MygeusmGBPFSWMZHH5888-68-68 09:52:000.7 [facility] IkaqvwaEJLEDKXPWI7102-26-69 09:52:000.9[facility]annHEMATOLOGY 2019-12-01 09:52:007.4[facility] GliweivEQFEEWGNWL7719-97-96 09:52:002.3[facility] HqjzhzrZZPCDYCOFU3460-00-05 09:52:001.1[facility] RjcxzdsMVMBLKTGCY8537-66-28 09:52:000.1[facility] BkpzkdfTVNDSCHBTM0031-57-13 09:52:000.1[facility] FQXNT4320-11-86 01:14:00Light Yellow *NA*(11/30/19 8:14 PM)[facility] URINE AND FZWPE0687-40-51 01:14:00Clear (11/30/19 8:14 PM)[facility] MUNVM2508-00-78 01:14:00 Test Item Value Reference Range Interpretation Comments UA Spec Grav (test code = UA Spec 1.012 1 Grav) [facility] ETJHZ4856-63-84 01:14:00 Test Item Value Reference Range Interpretation Comments UA pH (test code = UA pH) 7.0 1 5.0-8.0 [facility] JPZLC5524-06-16 01:14:00Negative *NA*(11/30/19 8:14 PM) [facility] EOVZJ2702-05-15 01:14:00Small *ABN*(11/30/19 8:14 PM) [facility] YXOCP4643-15-62 01:14:00<1.0[facility] TNDXZ0713-53-35 01:14:00Negative (11/30/19 8:14 PM)[facility] NYEVM4048-09-14 01:14:00Negative (11/30/19 8:14 PM)[facility] STOOL 2019-12-01 01:14:00<1[facility] ZAKTF1250-96-95 01:14:001 [facility] GGJZB9845-01-29 11:13:06726[place] HermannCHEM PANEL 2019-11-30 11:13:0022[facility] KMAUA3574-01-47 11:13:000.83[facility] AEQFD3525-77-89 11:13:84390Bomrzivh [facility]annCHEM JWEFM5763-23-35 11:13:005.3[facility] OUVFG6855-39-30 11:13:70525Pvnhtfkf [facility]annCHE[facility] TKQBS0410-40-46 11:13:0028[facility]CHE[facility] WYERC6915-42-98 11:13:007.8 [facility] DFLGV8988-30-54 11:13:0012.3[facility]annCHE[facility] PANEL 2019-11-30 11:13:0071[facility] CqvlmlaZNQBQIJISW4456-52-95 11:13:0010.6[facility] OawkufmLZJCQAOYXB5773-68-03 11:13:004.40[facility] BteagmuQZBRLDIIAZ7531-23-18 11:13:0013.0[facility] CprgxwqZLPPHOERYL8987-25-88 11:13:0040.0[facility] RKCDKMCPZL2647-25-90 11:13:0091.0[facility] OvnofmyGIJTMBIRKU3027-88-42 11:13:00 Test Item Value Reference Range Interpretation Comments MCH (test code = MCH) 29.5 pg 27.0-31.0 [facility] KscqxipPNKGYJFFAZ6786-53-36 11:13:0032.4[facility]annHEMATOLOGY 2019-11-30 11:13:0016.5[facility] NyzuyqrSPWKLVUOFT2399-09-75 11:13:72683Obdztbdz HgtahiyRMRTPPLTRZ4740-59-05 11:13:0010.0[facility] WpzjnmjPHBDXTRJNE0250-69-54 11:13:00 Test Item Value Reference Range Interpretation Comments PT (test code = PT) 13.3 s 12.0-14.7 [facility] RfcexvxSMCUCBGAXD7655-91-16 11:13:00 Test Item Value Reference Range Interpretation Comments INR (test code = INR) 1.01 1 0.85-1.17 [facility] HrrfnskUMDDDUZIVO7700-19-40 11:13:00 Test Item Value Reference Range Interpretation Comments PTT (test code = PTT) 29.5 s 22.9-35.8 [facility] IwarnvsWRSDFRQRXH5667-69-47 11:13:0059.5[facility]annHEMATOLOGY 2019-11-30 11:13:0029.2[facility] SuxchygGVHMQUHROO5687-71-73 11:13:009.3[facility] TdnajykSXBIMRMQJV0413-48-22 11:13:001.0[facility] NmaynorVSDLDTMGSE4910-92-77 11:13:001.0[facility] XoriijdOTCLLKPPNW0041-50-13 11:13:006.3[facility] DQSDBJTBYE6080-74-63 11:13:003.1[facility] KpfltszJBWEPUTEQN0478-10-25 11:13:001.0 [facility] ZbvqxbrXJXYVLVRVY9479-13-43 11:13:000.1[facility]annHEMATOLOGY 2019-11-30 11:13:000.1[facility]BL[facility] B[facility] KKCFZNA1689-72-23 09:04:00 Negative (11/29/19 4:04 AM)[facility]annCHE[facility] CTSHN9578-25-80 09:04:0097 [facility] TUKZK5246-22-11 09:04:0026[facility]annCHEM PANEL 2019-11-29 09:04:000.90[facility]CHE[facility] RZXCB2923-96-83 09:04:04164Rccriicb [facility]annCHEM HFLYN0342-33-44 09:04:003.9[facility]CHE[facility] JSWGP1902-23-73 09:04:88651Ueweqamn [facility]annCHE[facility] CHVNR9070-00-35 09:04:0032[facility] QVKGU8921-56-10 09:04:008.7[facility]annCHE[facility] BIRHO0272-84-43 09:04:005.9 [facility] XJGFP8005-17-52 09:04:0064[facility]annHEMATOLOGY 2019-11-29 09:04:00 Test Item Value Reference Range Interpretation Comments PT (test code = PT) 13.6 s 12.0-14.7 [facility] JhtqxmaKMVEPLTMAV0370-16-00 09:04:00 Test Item Value Reference Range Interpretation Comments INR (test code = INR) 1.04 1 0.85-1.17 [facility] NgntuvhPUUBNMMDJL7602-18-26 09:04:00 Test Item Value Reference Range Interpretation Comments PTT (test code = PTT) 30.9 s 22.9-35.8 [facility] KoxrozgSHDVNJKQXY2784-99-59 09:04:0010.6[facility]annHEMATOLOGY 2019-11-29 09:04:004.50[facility] VsubgxxRULPWHZFES5133-72-23 09:04:0013.5[facility] BosvnlvCLEMDLIVLM6770-08-39 09:04:0040.4[facility] AsrvmsoKXWSVADVIJ3549-71-75 09:04:0089.8[facility] UesuhelKMASPRNMNU1374-71-48 09:04:00 Test Item Value Reference Range Interpretation Comments MCH (test code = MCH) 30.0 pg 27.0-31.0 [facility] XntfmtvVQMLUFALWW9560-55-25 09:04:0033.4[facility]annHEMATOLOGY 2019-11-29 09:04:0016.7[facility] FylhawmWUOISFVMMR1466-23-62 09:04:51038Ilwwfmpm TuajqfmZZXHOCBRJS2907-72-58 09:04:009.5[facility] PrzvzvkAXSYZOPRCA6916-75-94 09:04:0065.7[facility] JzscfzaQVCBBXCMKW9864-87-73 09:04:0024.6[facility] HTEPDVJBYJ3515-15-34 09:04:008.2[facility] TtszctmWTKLOCCSJE3431-45-30 09:04:000.8 [facility] JwiwfpyULIQTAGVIV7761-86-53 09:04:000.7[facility]annHEMATOLOGY 2019-11-29 09:04:006.9[facility] UwwuxeqZTAHAKAASI8256-02-82 09:04:002.6[facility] LqaanfwIAJPTSKEAC9217-10-94 09:04:000.9[facility] TcftwegUJRVMNHXXS3057-52-20 09:04:000.1[facility] QorshchKVUUKHZQKE1836-23-27 09:04:000.1[facility] OJLUCKAUFC0276-80-87 21:00:00Not Detected (11/27/19 4:00 PM)[facility]CHE[facility] IZRNI5523-84-90 09:32:49158Yqjsrsgm [facility]annCHEM UWPMY7441-84-30 09:32:0024 [facility] VSKKK2945-78-54 09:32:000.60[facility]annCHEM PANEL 2019-11-27 09:32:58792Bjrwrsgf [facility]annCHEM BRIHH3969-46-44 09:32:003.4[facility]CHE[facility] UGJGU4966-16-41 09:32:51473Hhhiqtbw [facility]CHE[facility] ZBEEZ3653-49-46 09:32:0029[facility]CHE[facility] GCTAZ1465-80-73 09:32:008.3[facility]annCHEM TXOAV5730-80-33 09:32:0010.4[facility]annCHE[facility] GVSMS2342-39-11 09:32:0091 [facility] ByydnahDHCSDZNCUL6055-24-35 09:32:0010.2[facility]annHEMATOLOGY 2019-11-27 09:32:004.57[facility] TfkshtzCTVPZWOHNC2030-50-92 09:32:0013.6[facility] JorskjjGHVNFJSQLO7086-24-07 09:32:0041.4[facility] IwmmgnzLKMFJTXRHK6209-25-63 09:32:0090.4[facility] CdtimddWRQCHIEJDK7070-81-85 09:32:00 Test Item Value Reference Range Interpretation Comments MCH (test code = MCH) 29.8 pg 27.0-31.0 [facility] HdlguwoTCFVCESJEO2258-50-92 09:32:0032.9[facility]annHEMATOLOGY 2019-11-27 09:32:0016.7[facility] QeaigkdRNPRVETRCQ5993-17-77 09:32:53628Tjfpzcps YbhibixBGFAUMROBA7162-82-58 09:32:009.8[facility] DepkixsZOIPEH6889-89-56 09:18:00 167[facility] ZpofufqYSVTUD3560-81-49 09:18:30566Naumbsls VlpjugsAETXUW2669-32-11 09:18:0050[facility] VgzllhgXUINHR4905-65-52 09:18:00 Test Item Value Reference Range Interpretation Comments CHD Risk (test code = CHD Risk) 3.02 1 3.90-5.80 [facility] VdrwlaaIQLBJK4230-73-42 09:18:0068[facility] AffxnveJBOUEI5769-61-66 09:18:00 Test Item Value Reference Range Interpretation Comments VLDL (test code = VLDL) 33 1 [facility]annSPECIAL YFNJCUSNA9146-70-56 09:18:008.5[facility] JFBBCZOFQD6166-69-35 03:47:000.45[facility]annCHEM LFXUD7860-52-13 12:04:00 132[facility]annCHEM SDYEO2045-98-80 12:04:0019[facility]annCHEM PANEL 2019-11-24 12:04:000.76[facility]annCHEM GCFHU0913-22-62 12:04:26174Zngyqsgg [facility]annCHEM UTDCQ4342-52-95 12:04:003.7[facility]CHE[facility] JDUFW2497-66-23 12:04:85565Hwqxxyee [facility]annCHEM OPCRW5113-91-88 12:04:0027[facility]CHE[facility] NEDZM1696-56-38 12:04:009.7[facility]annCHE[facility] QWVZY2031-69-30 12:04:008.7 [facility] XXPWB0840-24-20 12:04:0079[facility]annHEMATOLOGY 2019-11-24 12:04:0090.7[facility] XqcwegiOHHNTUKHIR3321-67-07 12:04:006.4[facility] EzhkcfzMGKPCSYRJT3238-83-99 12:04:002.1[facility] OjfumwtQEIKLCOBRE4269-58-42 12:04:000.3[facility] VpoekltOEXUUNMECW0755-60-95 12:04:000.5[facility] SNGDQDVYRG0731-61-22 12:04:0015.1[facility] RvhwcbgVCNWZWJOIT4203-98-06 12:04:00 1.1[facility] ZeodqpmSOZYLWAEIP6563-73-81 12:04:000.3[facility]annHEMATOLOGY 2019-11-24 12:04:000.1[facility] VdtojtrERGXBJNUOQ4854-75-66 12:04:0016.7[facility] XzlhfdlTCWGOFVGGA8761-18-88 12:04:005.00[facility] UplalgvBTSQCJESJC5002-53-67 12:04:0015.1[facility] UdffgojPEOQFLJTWH3676-36-00 12:04:0045.1[facility] MTAFJEXNZB5480-73-57 12:04:0090.2[facility] GklranyVZGQLUUBOX3720-84-55 12:04:00 Test Item Value Reference Range Interpretation Comments MCH (test code = MCH) 30.1 pg 27.0-31.0 [facility] FltzscpNBAZHBGDSA9015-92-06 12:04:0033.4[facility]annHEMATOLOGY 2019-11-24 12:04:0016.3[facility] UrmtvbsMDMPXHXDWN6728-71-40 12:04:15949Lasfznui VyalnojNHYRTUHLXY6897-39-18 12:04:009.6[facility]annCHEM BFAMJ8045-08-33 16:14:80749Nbpqsdat HermannCHEM VGCQU4199-20-82 16:14:0018[facility]annCHE[facility] FJVOR1725-29-37 16:14:000.96[facility]annCHEM NASUB8207-68-66 16:14:18266 [facility]CHE[facility] LGRJJ2168-02-14 16:14:004.3[facility]annCHEM PANEL 2019-11-23 16:14:69579Zffthvcz HermannCHEM JRNSK9245-74-10 16:14:0026[facility]annCHEM SBQOA4732-87-76 16:14:0010.3[facility]annCHE[facility] DMLKO2074-05-48 16:14:008.8[facility]annCHEM BANWR3582-38-72 16:14:0059[facility] XPDGNHYCJH8744-75-24 09:51:0081.3[facility] YrgsqzwDCWHNRTGZC4776-36-54 09:51:00 11.5[facility] NkmqntqNQNMMULUGP8458-55-10 09:51:005.4[facility]annHEMATOLOGY 2019-11-23 09:51:000.8[facility] LfbbivmHLMMTAZRVV2263-05-13 09:51:001.0[facility] GwejvgjSLGNLOVJXK7464-38-01 09:51:0015.8[facility] QhexazrYJXMZARNPC6660-52-17 09:51:002.2[facility] KbzdhzqEPIPREUWOK1999-45-28 09:51:001.1[facility] LZKPFUMFMS5920-29-14 09:51:000.2[facility] CwgfxbeMKBGPGOBTP4709-70-34 09:51:000.2 [facility] XumgxjlIBVCTYDIWR6534-61-84 09:51:0019.4[facility]annHEMATOLOGY 2019-11-23 09:51:005.40[facility] OkabyhgUOWBFGAFRM3771-23-49 09:51:0016.1[facility] AqjgcpfXPAGLMPKVD1733-96-14 09:51:0049.1[facility] LljzyafMVTWTITAXD1982-77-73 09:51:0091.0[facility] KmxixwuRPJXBLFRKF0495-28-72 09:51:00 Test Item Value Reference Range Interpretation Comments MCH (test code = MCH) 29.9 pg 27.0-31.0 [facility] AdeewlrWFXHEUIELV8513-14-83 09:51:0032.9[facility]annHEMATOLOGY 2019-11-23 09:51:0016.7[facility] JiqurffTAHNYPHXRV8041-96-66 09:51:57291Frxbnrvv FozcgjzVIETTXVFJQ0664-01-05 09:51:009.8[facility] HermannCARDIAC MAXLOWW5094-05-54 02:28:000.04[facility]annCHEM HKRUD3259-87-83 02:28:001.7[facility] MPGYUTTKGQ3072-17-26 16:05:00Not Detected (11/22/19 11:05 AM)[facility]CHE[facility] MVCGJ0681-70-47 12:35:002.6[facility] YTUUW9162-52-02 12:20:00 Veronique *ABN*(11/22/19 7:20 AM)[facility] XGBUE2573-16-64 12:20:00 Slight *ABN*(11/22/19 7:20 AM)[facility] YDRDL1117-26-31 12:20:00 Test Item Value Reference Range Interpretation Comments UA Spec Grav (test code = UA Spec 1.035 1 Grav) [facility] GZYWJ1050-26-49 12:20:00 Test Item Value Reference Range Interpretation Comments UA pH (test code = UA pH) 5.0 1 5.0-8.0 [facility] WLDUM5373-45-55 12:20:00Negative *NA*(11/22/19 7:20 AM) [facility] HRRQV3098-27-87 12:20:00Negative (11/22/19 7:20 AM) [facility] JRCBT0361-02-40 12:20:002.0[facility] FBKOH9279-46-54 12:20:00Negative (11/22/19 7:20 AM)[facility] QGRNN8922-26-22 12:20:00Negative (11/22/19 7:20 AM)[facility] UMGJD1081-96-24 12:20:001[facility] WSWFO4260-45-20 12:20:007 [facility] INWCW4618-90-94 12:20:004[facility]annHEMATOLOGY 2019-11-22 11:40:57 Test Item Value Reference Range Interpretation Comments PT (test code = PT) 12.4 s 12.0-14.7 [facility] LiywrzcGDHWKEXVCO3833-84-41 11:40:57 Test Item Value Reference Range Interpretation Comments INR (test code = INR) 0.92 1 0.85-1.17 [facility] UntgkgaEFJKLNTQFV3871-68-21 11:40:57 Test Item Value Reference Range Interpretation Comments PTT (test code = PTT) 25.1 s 22.9-35.8 [facility] RosszmlGYOXZEPBYU5193-25-16 11:40:57 Test Item Value Reference Range Interpretation Comments ACT (TEG) Rapid (test code = ACT (TEG) 89 s 86-118 Rapid) [facility]IcdfksnAUVYXGBVFN0979-81-06 11:40:57 Test Item Value Reference Range Interpretation Comments Split Point Rapid (test code = Split 0.3 min Point Rapid) [facility] BfodrvyUBHZXXWPHY9478-75-00 11:40:57 Test Item Value Reference Range Interpretation Comments R-time Rapid (test code = R-time 0.4 min 0.4-0.7 Rapid) [facility] CenterJbxvjtnYIDGSHIOZS7948-22-43 11:40:57 Test Item Value Reference Range Interpretation Comments K-time Rapid (test code = K-time 1.3 min 0.6-2.3 Rapid) [facility] CenterYpzgwyvMRTFPDJHXH0271-34-41 11:40:57 Test Item Value Reference Range Interpretation Comments Angle Rapid (test code = Angle 75 degrees 64-80 Rapid) [facility] CenterEkhqtzuRYEUEJNOVT6032-09-16 11:40:57 Test Item Value Reference Range Interpretation Comments Max Amplitude Rapid (test code = Max 64 mm 52-71 Amplitude Rapid) [facility] CenterIwbokrbADFSBDCASF1816-59-82 11:40:579.0[facility]annHEMATOLOGY 2019-11-22 11:40:570.0[facility] UwhthzhYUMZJDMJEV2574-09-86 11:40:57Normal (11/22/19 6:40 AM)[facility] NadzmhsDTNVNUSCGY5644-89-70 11:40:57Normal (11/22/19 6:40 AM)[facility] IsnmdjbIFOUQUIMOT9749-93-77 11:40:5777.5[facility] PBQXPELQFW5999-16-58 11:40:5714.2[facility] BjrbawhZJRXGHTRAQ2390-30-62 11:40:57 6.8[facility] OhwwwufVHNGMGRGKP0418-58-05 11:40:570.2[facility]annHEMATOLOGY 2019-11-22 11:40:571.3[facility] JhekawiTFMDLUEXRD7823-88-65 11:40:5716.9[facility] GpirbmgFZFZQWLEQL0901-51-74 11:40:573.1[facility] WzlpmvbJXFOQPRKGG1240-86-07 11:40:571.5[facility] KzmmcweXUPMOJJYVQ5211-64-98 11:40:570.1[facility] AQUQTBSMQN4118-01-54 11:40:570.3[facility]BL[facility] B[facility] ZVKLGSA3215-95-28 10:56:00Negative (11/22/19 5:56 AM)[facility]annCARDIAC YFGLZZH8266-15-62 10:52:55227Qdttwaoz HermannCARDIAC AXBTRNH6818-95-66 10:52:330.05[facility]annCHEM QWZEP8291-69-82 10:52:335.8[facility]annCHEM DHXZT1780-21-90 10:52:332.4[facility]annCHEM MYWQQ3036-68-46 10:52:82195Awrxogax HermannCHEM VIJUS0795-62-54 10:52:82000Phefyimy HermannCHEM ZBSNG8332-30-84 10:52:331.2 [facility]annCHE[facility] SLEHD4699-31-05 10:52:330.3[facility]annCHEM PANEL 2019-11-22 10:52:330.9[facility]annCHEM TGICZ7796-68-64 10:52:333.4[facility]annCHEM MOEFU5161-41-76 10:52:33 Test Item Value Reference Range Interpretation Comments A/G Ratio (test code = A/G Ratio) 0.7 1 0.7-1.6 [facility]annCHE[facility] SDUMQ9858-57-44 10:52:03809Aijtivfe HermannHEMATOLOGY 2019-03-04 17:02:0060.1[facility] VhgupalQGRQCGTOUX6280-42-68 17:02:0032.3[facility] QabgkjeUMGEURIYIL4337-48-66 17:02:005.9[facility] AefvrpeKSBRIMSFEC2300-49-57 17:02:000.7[facility] EvgspmeNMRELDFYRL9720-80-40 17:02:001.0[facility] WNXBVFNXRU2334-27-32 17:02:004.3[facility] YuskeavVNWRIIHFNK8098-19-19 17:02:002.3 [facility] AgekgccBTTFSAYQIN9382-34-10 17:02:000.4[facility]annHEMATOLOGY 2019-03-04 17:02:000.1[facility] AuqbdcjUSFYWTAHPC7680-80-04 17:02:002[facility] UrkrdgdHQDRJQJPJD0822-35-68 17:02:007.2[facility] NkqojezWCCOOFVPYP6000-07-81 17:02:003.76[facility] FyycnnkQMKNQMYHTT6898-71-45 17:02:0012.1[facility] JGSYLNFKKC0755-96-77 17:02:0036.8[facility] YaeoshyJOSTTZOYOY8041-15-92 17:02:00 97.9[facility] ZtxwcqrYPLIHKCCGV9863-59-43 17:02:00 Test Item Value Reference Range Interpretation Comments MCH (test code = MCH) 32.1 pg 27.0-31.0 [facility] QsvxpnkZJIJZNUYDF0396-74-08 17:02:0032.8[facility]annHEMATOLOGY 2019-03-04 17:02:0016.7[facility] HxjgluvVIXFWKJYIV5088-77-81 17:02:31190Bkxdlezx HrupmmdFQWIVURMBC6584-28-75 17:02:008.9[facility] QxghzaaREIVIVPYZP1268-11-81 17:02:00<2.9[facility]annBL[facility] BANK WBEGBVK7555-74-71 12:49:00Negative (02/26/19 7:49 AM)[facility] FwktyuiTOXRBDKRZN2398-11-88 09:11:0067.8[facility] JfomfraNSXPTDOUOM2044-82-99 09:11:0022.9[facility] DhihnsiUVGUJRKUYN1607-20-32 09:11:007.8[facility] QjyhadfJONUSWNYQL5516-25-59 09:11:000.4[facility] PAQXRZFDCI8290-81-92 09:11:001.1[facility] ZrfbjwjUPZOTFDQKK6599-48-08 09:11:006.3 [facility] AtyvvewLJJUFZMYXO2601-31-52 09:11:002.1[facility]annHEMATOLOGY 2019-02-25 09:11:000.7[facility] TdqxeheYLKRTVPINM7511-72-24 09:11:000.1[facility] EjypxxvGYRLAURLHE6698-06-76 09:11:001+ *ABN*(02/25/19 4:11 AM)[facility] YANSNLVEJS3310-19-95 09:11:009.2[facility] BmdxbptSDAWHXSNCQ6456-33-62 09:11:00 3.50[facility] LifaquzAGEBKOVHAI6495-13-23 09:11:0011.5[facility]annHEMATOLOGY 2019-02-25 09:11:0035.5[facility] NjtfhssKNGBBSXDJH1153-15-00 09:11:43033.5 [facility] OgowvggXMSNDQIANT0782-66-59 09:11:00 Test Item Value Reference Range Interpretation Comments MCH (test code = MCH) 32.7 pg 27.0-31.0 [facility] JfodpgbXFNVHBBQMA9521-37-93 09:11:0032.2[facility]annHEMATOLOGY 2019-02-25 09:11:0017.4[facility] CsmrptbYLNHQJGQMF9538-75-40 09:11:90955Npcvdzng ZmfzkvfWWUGEPEUVO0637-49-97 09:11:009.2[facility] HermannCHEM JHNVX7300-84-31 10:17:27018Msdoomtd HermannCHEM YYQWH0877-05-89 10:17:0020[facility]annCHEM BHXAJ7557-93-43 10:17:000.89[facility] HermannCHEM FNNCL9690-94-29 10:17:58642 [facility]annCHE[facility] XAUYF8116-29-89 10:17:004.3[facility]annCHEM PANEL 2019-02-22 10:17:97839Igrtrvta HermannCHEM CRULU8874-01-44 10:17:0027[facility]annCHEM ZQKSJ0990-44-36 10:17:0013.3[facility]annCHEM ATAYR8861-13-64 10:17:008.9[facility]annCHEM HYYJI5183-43-21 10:17:0065[facility] UWXNFYJKAF1578-13-84 10:17:0063.7[facility] UqmjduoOZEVDJOKQE1977-79-79 10:17:00 26.8[facility] NhnyukrBYVRQWPJJY5243-63-91 10:17:008.0[facility]annHEMATOLOGY 2019-02-22 10:17:000.4[facility] RgqkozbNHWTQRHLGZ3350-57-58 10:17:001.1[facility] TsjnfkhHDUUPDCBCZ7543-29-14 10:17:006.4[facility] LltjjxpMKLMPSSTKW2747-28-29 10:17:002.7[facility] HhnciicNMERQGHHAV3617-40-34 10:17:000.8[facility] MMFUIRSIVM6848-30-63 10:17:000.1[facility] GlqvkhaJADFLLUXXC6337-52-62 10:17:00 10.1[facility] FxjujqfTXEOLFRPTB8614-00-85 10:17:003.93[facility]annHEMATOLOGY 2019-02-22 10:17:0012.7[facility] GrtjjsvQYRPZUVSRA3409-61-12 10:17:0038.8[facility] HgwvonzPLOTNEGOUN8550-19-46 10:17:0098.9[facility] JxlwnfkWDRSAFHXFV5008-43-68 10:17:00 Test Item Value Reference Range Interpretation Comments MCH (test code = MCH) 32.4 pg 27.0-31.0 [facility] ZtnuuecNVEDIOVYKZ6865-17-42 10:17:0032.7[facility]annHEMATOLOGY 2019-02-22 10:17:0017.3[facility] RjwgwqxRDNXBHSOHT5639-92-04 10:17:28966Fqyfrntm DoavosxNSMNXCOTNF5777-61-68 10:17:009.8[facility]annCHEM KFBYW7297-32-84 10:59:0095[facility]annCHEM JGTUX8746-59-52 10:59:0018[facility]annCHEM YPBLE7084-45-64 10:59:000.77[facility]annCHEM VAZPH0623-09-79 10:59:63236 [facility]CHE[facility] VNLXQ2794-92-01 10:59:004.1[facility]annCHEM PANEL 2019-02-21 10:59:56070Engduzcq HermannCHEM DRJSH0551-17-28 10:59:0026[facility]annCHEM JVLNG8769-45-63 10:59:008.5[facility]annCHEM HGWKQ6367-00-23 10:59:0078[facility]annCHEM JJMFX3248-97-96 10:59:0012.1[facility]annCHEM BMRKO4516-89-06 10:59:002.0[facility]annCHEM UKZEY6659-60-14 10:59:003.5 [facility] TobyeroFVBQJGKCXGZA1755-77-81 09:46:0011.1[facility] HermannELECTROLYTES 2019-02-19 09:46:0073[facility] OesyjieNOEHHOCOJQYU4640-85-25 09:46:0021[facility] UstayckYXONIXXPESIZ8518-93-53 09:46:000.66[facility] JeobglzQBPQJRPRGGXR7745-97-34 09:46:69863Rpuziccy XnerklhSFAKQSXNIRDO3843-38-21 09:46:004.1[facility] TZXAKFKCDRWN4348-85-69 09:46:34377Rujzgptz GlexwyrGENRKFHMUPMG1336-59-89 09:46:0026[facility] OujiqmeNHRDXTPXZPZO4696-52-03 09:46:008.6[facility] TXSZWWDIELRK5786-09-42 09:46:002.1[facility] UsjvbpmWTPJHMGPDJGD9212-67-72 09:46:003.0[facility] ZycfwvvBPMKHMVKJHLI6008-65-79 09:46:0088[facility] CZTDRPWLUW9726-40-24 09:46:000.1[facility]annCHEM NTTCU3451-67-70 08:45:002.4 [facility]annCHE[facility] CKMDT3989-79-96 08:45:005.0[facility]annHEMATOLOGY 2019-02-18 08:45:000.0[facility] EfwyibmXSIYKUBSVX2312-59-92 08:45:002.0[facility] HzctqvvLSZWFLPIYL7058-35-79 08:45:000.0[facility] DfonqjqONSWJPBNND6486-07-29 08:45:001[facility] WdgbvdeBBNZCWGMBR6050-05-90 08:45:00Normal (02/18/19 3:45 AM) [facility] RceufdfXFECNTEZXK1343-29-18 08:45:001+ *ABN*(02/18/19 3:45 AM)[facility] DndeignRKKWVEVTPO3971-96-23 02:24:0018.8[facility] NsygizlGLQSGBIBJU9282-74-29 02:24:00 Test Item Value Reference Range Interpretation Comments Roya AVILES (test code = Roya Couch 2200 1 TND) [facility] CdewjxyJQREXKJBLQ5234-10-55 07:22:001.0[facility] HermannHEMATOLOGY 2019-02-16 07:22:002.0[facility] UlvihgoEUIFVIWFYY0678-51-97 07:22:003.0[facility] YghrkanDHKEFRFBFV2991-77-19 07:22:000.0[facility] WoflrfuXPFTRZPVPI9741-10-37 16:09:000.2[facility] BlsgkyfWOHUFOYHNO7932-39-69 16:09:000.0[facility] JTVLPRWKJP3081-48-59 16:09:001.0[facility] FfbxacdPLOCYXWJTC0802-86-80 16:09:001.0 [facility] QfoxtcuYUIZEXEJJC4026-56-10 16:09:000.0[facility]annHEMATOLOGY 2019-02-15 16:09:002+ *ABN*(02/15/19 11:09 AM)[facility]annHEMATOLOGY 2019-02-15 16:09:001+ *ABN*(02/15/19 11:09 AM)[facility]annHEMATOLOGY 2019-02-13 10:40:000.4[facility] IkkssjlDKNKKYTZGT0174-69-89 10:40:001+ *ABN*(02/13/19 5:40 AM)[facility] YxmegmaBTNFJJBSLC5654-15-35 20:53:0096.6[facility]annCHEM ZGXVT2715-07-11 07:43:001.6[facility]annCHEM PCRRL9907-51-57 01:51:002.4[facility] VgcabwcMNUBPVHERR6985-34-65 01:51:0012.1[facility] TRIMETHOPRIM+SULFAMETHOXAZOLE:SUSC:PT:ISOLATE:ORDQN:CCE2750-01-52 18:43:00 Staphylococcus aureusMem[facility] [place] TRIMETHOPRIM+SULFAMETHOXAZOLE:SUSC:PT:ISOLATE:ORDQN:CXS2796-54-79 18:43:00 Enterococcus SpeciesMem[facility] [place] TRIMETHOPRIM+SULFAMETHOXAZOLE:SUSC:PT:ISOLATE:ORDQN:MKU8585-39-38 18:43:00 Proteus mirabilisMemorial FoxugapVTDTVDCOYP6273-12-66 14:43:0014.3[facility]annCHEM GMQJE9186-65-48 03:40:001.6[facility]annCHEM ZHRMO3219-24-49 14:04:002.1[facility] TiipamqLNPIYNEKXC9477-40-49 14:04:00Normal (02/09/19 9:04 AM) [facility] FozunfpJOFVQDTEIS7982-40-42 14:04:00Normal (02/09/19 9:04 AM)[facility] HermannPARATHYROID NSGMKWA5875-49-73 14:04:001.06[facility] HermannPARATHYROID YVFAYYV4724-25-98 14:04:001.04[facility]annURINE AND BLMTZ2863-91-98 08:55:00 Yellow *NA*(02/08/19 3:55 AM)[facility] QRIVL4646-58-44 08:55:00 Marked *ABN*(02/08/19 3:55 AM)[facility] YJVAI0912-17-82 08:55:00 Test Item Value Reference Range Interpretation Comments UA Spec Grav (test code = UA Spec 1.022 1 Grav) [facility] RESZW5341-56-23 08:55:00 Test Item Value Reference Range Interpretation Comments UA pH (test code = UA pH) 5.0 1 5.0-8.0 [facility] FQXYW6597-56-08 08:55:00Negative *NA*(02/08/19 3:55 AM) [facility] EKLNT9268-58-59 08:55:00Negative (02/08/19 3:55 AM) [facility] MWANA5866-97-62 08:55:00<1.0[facility] VYMXS5255-11-75 08:55:00Negative (02/08/19 3:55 AM)[facility] JIZUR3045-18-07 08:55:00Negative (02/08/19 3:55 AM)[facility] JAOST9559-80-39 08:55:0013[facility]UR[facility] AND JJWRL0834-37-53 08:55:004 [facility] WGOCJ9867-95-23 08:55:005[facility] CHEM 2019-02-08 08:55:0030[facility] SMVU1077-57-19 08:55:66400.00[facility]annCARDIAC NRBEOGU6925-21-73 06:59:00<0.02[facility]annHEMATOLOGY 2019-02-08 06:59:0095[facility] QkredfbWHWIAHCWNJ8337-71-34 06:59:0081.9[facility]annPARATHYROID OQBZRYF7083-02-38 06:59:001.19[facility]annPARATHYROID IVGBMZL4535-82-01 06:59:001.17[facility]annCHEM OTTUM3157-92-96 01:53:01113 [facility]annPARATHYROID MRRSAAN8264-39-23 06:52:001.08[facility] PARATHYROID JJOTGIH1339-04-82 06:52:001.09[facility] HermannANEMIA TJAZK3721-68-36 19:48:04629Fmtljvgf HermannANEMIA ROARC3112-62-13 19:48:0016.9[facility] CHEM RJEAV9178-99-68 19:48:0013.0[facility]annCHEM MWUIA9841-97-94 19:48:00 172.6[facility] ChxvaeeRRHNMQKBGA6692-67-12 19:48:0017.3[facility] HermannIMMUNOLOGY 2019-02-06 19:48:45741Chzrexed HermannSPECIAL LGKJSKTGB7849-17-77 19:48:008.5 [facility]annCARDIAC XSSFRYN8238-16-33 19:43:000.03[facility]annCARDIAC CQYAQDN0601-45-94 19:43:94205Bqyujxqp HermannCARDIAC ZLZFCEH1673-44-66 19:43:00 1.5[facility]annCARDIAC FNQOXVG5801-11-10 19:43:00 Test Item Value Reference Range Interpretation Comments CK MB Index (test code = CK MB Index) 0.8 1 <=2.5 [facility]annCHEM PGCNH0750-37-63 19:43:00 Test Item Value Reference Range Interpretation Comments B/C Ratio (test code = B/C Ratio) 16 1 6-25 [facility]annCHE[facility] DIOYH9741-14-73 19:43:006.4[facility]annCHEM PANEL 2019-02-05 19:43:002.2[facility]annCHEM SZILA4352-21-44 19:43:004.2[facility]annCHEM YHYYQ4891-07-85 19:43:00 Test Item Value Reference Range Interpretation Comments A/G Ratio (test code = A/G Ratio) 0.5 1 0.7-1.6 [facility]annCHEM PBALK3267-54-64 19:43:98959Huhnafvj HermannCHEM PANEL 2019-02-05 19:43:09987Rsurolqk HermannCHEM HOMWQ5648-74-05 19:43:000.6[facility]annCHEM WEEAI8190-40-08 19:43:41819Vjlukrgk HermannCHEM IBGGT9549-09-06 19:43:006.5[facility] VSWCD0332-88-65 19:43:00Dark Yellow *NA*(02/05/19 2:43 PM)[facility] JQWOL8828-38-90 19:43:00Marked *ABN*(02/05/19 2:43 PM)[facility] QQQDC4375-87-17 19:43:00 Test Item Value Reference Range Interpretation Comments UA Spec Grav (test code = UA Spec 1.022 1 Grav) [facility] EEREI5088-51-83 19:43:00 Test Item Value Reference Range Interpretation Comments UA pH (test code = UA pH) 6.0 1 5.0-8.0 [facility] PHWTT1786-83-06 19:43:00Negative *NA*(02/05/19 2:43 PM) [facility] WTGKV4941-74-54 19:43:00Negative (02/05/19 2:43 PM) [facility] SNZNM6218-40-83 19:43:002.0[facility] OKHGZ2026-08-77 19:43:00Negative (02/05/19 2:43 PM)[facility] STOOL 2019-02-05 19:43:00Negative (02/05/19 2:43 PM)[facility] STOOL 2019-02-05 19:43:004[facility] BGMWV6182-83-77 19:43:002[facility] FlmkeqxARGMXSOBET4767-56-46 10:01:0012.0[facility] JscepphOUAIZUFPZX1401-41-52 10:01:002.2[facility] SlzjergALBXDPRGUR7620-19-60 10:01:000.8[facility] WZQEUVPFCN3058-33-73 10:01:0078.0[facility] AzokzspTFBIUJBPWB2940-26-71 10:01:00 0.0[facility] UmwyepxXWRQMISTXM1482-40-28 10:01:0014.0[facility]annHEMATOLOGY 2019 10:01:005.0[facility] XglyodtFHYYNARLGG7673-18-28 10:01:001.0[facility] YeurtmbWHWVQWGVFH2834-71-97 10:01:002.0[facility] ZobfhidQUKRWJNHEE5105-44-78 10:01:000.0[facility] ZmmprdrWEKTHVSXOD1376-61-20 10:01:003[facility] EDNSGUXZSE4454-48-84 10:01:001+ *ABN*(01/09/19 5:01 AM)[facility]annHEMATOLOGY 2019 10:01:001+ *ABN*(01/09/19 5:01 AM)[facility] NcwfbpbCBHDNIHEWW8369-95-33 10:01:00Moderate *ABN*(01/09/19 5:01 AM)[facility] QudpercBWYMGBVIKI0488-73-77 10:01:0015.4[facility] IqvsmcbZPBRGZFACZ5866-13-09 10:01:002.79[facility] VJFDLCCTVB6990-88-88 10:01:009.6[facility] XjottlkITLQKUOLLC5929-12-36 10:01:00 29.3[facility] JsiojpgWEBTGJBRKT7616-68-45 10:01:58273.8[facility]annHEMATOLOGY 2019 10:01:00 Test Item Value Reference Range Interpretation Comments MCH (test code = MCH) 34.5 pg 27.0-31.0 [facility] OyzxaxzTBZSVHKRMQ1210-91-78 10:01:0032.9[facility]annHEMATOLOGY 2019 10:01:0022.7[facility] VwbrylsBTDRHKMJYE7958-16-45 10:01:02837Xnyrolfn OtgyzcaLTVIRTNZRK7998-25-49 10:01:009.8[facility]annCHEM XJWSW9439-66-70 10:31:0079[facility]annCHEM INKFE4536-98-96 10:31:0027[facility]annCHEM QJJOI3673-98-80 10:31:000.77[facility]annCHEM KBCPB0327-67-10 10:31:06690 [facility]annCHEM NEEQL2686-10-39 10:31:004.2[facility]annCHEM PANEL 2019-01-07 10:31:93985Mxxqstya HermannCHEM WDUFT4145-67-07 10:31:0028[facility]annCHEM YDREA1072-15-03 10:31:0012.2[facility]annCHEM NJQTX0845-74-05 10:31:008.6[facility]annCHEM LHHJH5189-49-31 10:31:0078[facility]annCHEM NIRZL4828-86-19 10:31:002.1[facility]annCHEM CUKSV2702-78-24 10:31:003.7 [facility] PodrftlDPLZVCTZAB6127-20-20 10:31:0014.2[facility]annHEMATOLOGY 2019-01-07 10:31:006.1[facility] RrznuzyMXLKQTLUND9966-81-70 10:31:000.4[facility] DybtkovGXYRNBBYGR3451-56-35 10:31:000.2[facility] VxlawgbBPRUCDTRGG0929-22-98 10:31:0067.0[facility] DzhhhawQEIFCOJCYL2340-39-73 10:31:000.0[facility] WSFNMIVCPH4707-91-26 10:31:0029.0[facility] ExrijawLXIUPPDAXH1662-29-71 10:31:00 2.0[facility] KtislfvQIEIKMYCGD4521-59-68 10:31:001.0[facility]annHEMATOLOGY 2019-01-07 10:31:001.0[facility] PrcccooBRNVUKEZPE9102-07-48 10:31:000.0[facility] OkjkbqpNPCTOOTVMB8112-88-06 10:31:002[facility] LxwvegfNUJJZKFEDN3613-11-98 10:31:00Normal (01/07/19 5:31 AM)[facility] QfwuzatZLIHCUGHWW4812-94-80 10:31:001+ *ABN*(01/07/19 5:31 AM)[facility] DfbncagXLCIAUTQXV2049-71-92 10:31:001+ *ABN*(01/07/19 5:31 AM)[facility] HyhfeygOJKOPVZVVO2856-90-25 10:31:00Moderate *ABN*(01/07/19 5:31 AM)[facility] CglxckySIWFHADITQ8166-25-35 10:31:0021.2[facility] GsihhcnLIEJYNBLCW5253-08-96 10:31:002.83[facility] WnlnldrXBWOXBJVTN9628-79-36 10:31:009.6[facility] EwlrshlSCLFCCOYSK3626-53-79 10:31:0029.6[facility] LPSUXWGMNX0406-28-66 10:31:30426.5[facility] VdmotbhZLNNJLZALU2821-53-05 10:31:00 Test Item Value Reference Range Interpretation Comments MCH (test code = MCH) 33.9 pg 27.0-31.0 [facility] JerpkgeBFWHZRTOLO6719-77-85 10:31:0032.4[facility]annHEMATOLOGY 2019-01-07 10:31:0019.9[facility] EeaowpmQFMRSYPIMJ6897-47-25 10:31:33975Zgfmlmvp WqgknpyOVQEQSKXGR6913-92-84 10:31:0010.6[facility]annCHEM YYVMS4449-77-96 19:41:41702Hbfyjjhl HermannCHEM YEYPI7172-75-30 19:41:0027[facility]annCHEM JAVBL3366-30-33 19:41:001.34[facility]annCHEM QJQPO6666-57-41 19:41:64920 [facility]annCHEM STEAR2769-31-49 19:41:004.0[facility]annCHEM PANEL 2019-01-06 19:41:16131Cyurhrgd HermannCHEM YKFEE8686-35-86 19:41:0027[facility]annCHEM QRFSL8944-42-75 19:41:008.3[facility]annCHEM OFIOM6372-93-63 19:41:0040[facility]annCHEM FDNFP0169-72-09 19:41:0016.0[facility] SSFNPWPYDJ6563-55-83 19:41:0084.9[facility] QnfnaquKZHMMJXEPB6996-06-45 19:41:00 11.4[facility] KowakyoQDVYZUFZRQ7600-59-73 19:41:002.9[facility]annHEMATOLOGY 2019-01-06 19:41:000.2[facility] WdzmcxgFNTKUQFYSX8660-55-26 19:41:000.6[facility] CpyubvwXVUTBDQTTI8466-52-94 19:41:0012.0[facility] OekqzxdBQNHSPSSMN5504-94-85 19:41:001.6[facility] TuhkqjxBZKBQPHHFZ7356-37-23 19:41:000.4[facility] JHUNNYWIMF4295-86-80 19:41:000.1[facility] IjfqdotQZUONJIHPF6125-10-65 19:41:001+ *ABN*(01/06/19 2:41 PM)[facility] YyenbzjTDOJPOTJQI6869-97-29 19:41:0014.1[facility] OzwbpvoONIIGXXTWK1123-71-02 19:41:002.86[facility] HlqbyajOFLUAEEFOI1072-81-59 19:41:009.7[facility] IvcoahdWRZJHEFRBA7416-69-72 19:41:0029.5[facility] YTEHRQYPTP4630-20-85 19:41:04892.3[facility] MhufydpCSJNWKPWEN9737-25-19 19:41:00 Test Item Value Reference Range Interpretation Comments MCH (test code = MCH) 33.8 pg 27.0-31.0 [facility] QfqotrnBFOQKQITAH5615-34-03 19:41:0032.7[facility]annHEMATOLOGY 2019-01-06 19:41:0020.1[facility] BtkwzptLXNZNREFCQ9675-45-54 19:41:36385Mevjujop TinqslcRPHPDXJAYU2392-12-17 19:41:0010.2[facility]annCARDIAC ENZYMES 2019-01-04 17:50:0098[facility] TdcikmjELVXQXBMLZPB5232-10-10 17:50:0012.0[facility] GxuiexkTDSUDGFPFSYW2441-85-46 17:50:0083[facility] KketpekANNFBJQETZPI8667-30-93 17:50:0023[facility] AbmjimbSIFNPRJPRQVO8145-32-90 17:50:000.88[facility] EJSUZXFGFZTZ9501-00-69 17:50:67386Zfmxqotw EvrlvjtJLBXFFDNESRF2572-46-94 17:50:004.0[facility] QwivrbaFAAUKNDLORWR2096-42-06 17:50:45047Exmeksqc [facility] JHJKLRHWDCPX9858-55-33 17:50:0025[facility] BlpoqlzDTQWXMMFJNGD0332-02-85 17:50:00 8.5[facility] AgcagksSYPUKVWDXVRG7755-88-35 17:50:0066[facility]annHEMATOLOGY 2019-01-04 17:50:000.2[facility] ZthjnvwPSXMAFKUIQ8087-13-69 17:50:003.0[facility] OuxvdwpKGFTSMENMD8446-99-71 17:50:001.0[facility] ZhpnilqSWMUXHQYWT6140-99-97 17:50:001.0[facility] MlqjbepYVSEVSDQOH4275-53-49 17:50:000.0[facility] WUZZJADAMQ7525-48-00 17:50:009[facility] EnywncxHMOYAOJIHN4110-87-05 17:50:00 Normal (01/04/19 12:50 PM)[facility] MuynuwdZDRCYUTKTV8552-31-34 17:50:001+ *ABN*(01/04/19 12:50 PM)[facility] MvwrljkYFMZCALUGV1785-58-03 06:25:000.1[facility] OwjfqayYZMHOHKUBC3547-81-60 06:25:000.7[facility] RoefjfxYMTGNLJKEU4666-10-28 06:25:000.2[facility]annPARATHYROID YDGAWGO0746-97-67 06:25:001.08[facility]annPARATHYROID TYZMZBK0433-98-61 06:25:001.04[facility]annHEMATOLOGY 2018-12-31 07:09:003.0[facility] HermannCHEM ZTKGE5051-32-39 09:20:002.1[facility] HermannCHEM KPQEO7503-54-42 09:20:002.7[facility] ZotylfpWQDFFEXRNI2369-62-06 09:20:74899Xagulkyp EnrqdgxLYILJSNTAP3599-53-50 09:20:000.1[facility] PARATHYROID YUFGJTD5959-86-12 09:20:001.08[facility]annPARATHYROID PROFILE 2018-12-30 09:20:001.10[facility]annCARDIAC SPRITUB7458-64-28 05:04:000.09 [facility]annCHEM GHIMG7584-49-96 05:04:002.0[facility] HermannCHEM PANEL 2018-12-29 05:04:002.4[facility] TatsyrzOEPEPWHCXK2980-18-77 05:04:00Normal (12/29/18 12:04 AM)[facility] LwhhxuaTFULLDPJXC9217-10-02 05:04:00 Test Item Value Reference Range Interpretation Comments INR (test code = INR) 1.02 1 0.85-1.17 [facility]rez[facility]lsLXQHEQVALM2290-54-37 05:04:00 Test Item Value Reference Range Interpretation Comments PT (test code = PT) 13.2 s 12.0-14.7 [facility] HospitalIbykpfbFECBWSJPEQ9547-71-97 05:04:00 Test Item Value Reference Range Interpretation Comments PTT (test code = PTT) 31.0 s 22.9-35.8 [facility] CenterMgcjwdcISXNULVZHQ0512-72-57 05:04:44946Lqfdubzu HermannPARATHYROID YSHVDDD6962-91-32 05:04:001.10[facility]annPARATHYROID BBUQENG0927-19-76 05:04:001.11[facility]annCARDIAC DXDIIPD5176-20-34 07:31:000.11[facility] HermannCHEM ZLXTY3939-13-36 07:31:004.7[facility] HermannCHEM KUCRR9576-51-86 07:31:002.8[facility] HermannCHEM XSPCV5207-95-69 07:31:0036[facility]annCHEM JYKNW1921-56-58 07:31:0018[facility]annCHEM ECJVV5356-53-52 07:31:0073 [facility]annCHEM BVLIQ4216-78-49 07:31:000.7[facility] HermannCHEM PANEL 2018-12-28 07:31:000.2[facility] HermannCHEM AEHKM3647-41-84 07:31:000.5[facility] HermannCHEM UFSWA5181-09-39 07:31:001.9[facility] HermannCHEM PHSGL3115-36-72 07:31:00 Test Item Value Reference Range Interpretation Comments A/G Ratio (test code = A/G Ratio) 1.5 1 0.7-1.6 [facility] CenterCwcbrgwATZXLXVKWY5313-15-62 07:31:001.0[facility]annHEMATOLOGY 2018-12-28 07:31:00 Test Item Value Reference Range Interpretation Comments INR (test code = INR) 1.13 1 0.85-1.17 [facility] CenterFgaemtoXBPBLICQLP8599-76-91 07:31:00 Test Item Value Reference Range Interpretation Comments PT (test code = PT) 14.3 s 12.0-14.7 [facility] TygaymdSUIVYKPGTG0010-67-19 07:31:00 Test Item Value Reference Range Interpretation Comments PTT (test code = PTT) 35.5 s 22.9-35.8 [facility]annSPECIAL PXJQWFECE4848-64-54 07:31:0011.1[facility] AND QYAHN3407-57-24 11:12:00Negative (12/27/18 6:12 AM)[facility] HermannCARDIAC JVCWQFH6762-28-33 05:26:000.06[facility] HermannCHEM MHCXU0296-14-35 05:26:004.7 [facility]annCHEM CNZGY2402-35-23 05:26:003.5[facility] HermannCHEM PANEL 2018-12-27 05:26:0030[facility] HermannCHEM PBEKL2114-37-50 05:26:0011[facility] HermannCHEM EILFV0676-21-83 05:26:0055[facility] HermannCHEM UGEVA7431-99-31 05:26:000.5[facility] HermannCHEM ANSMK9995-18-90 05:26:000.1[facility] HermannCHEM VISLK2493-50-46 05:26:000.4[facility] HermannCHEM JQKGR6564-34-84 05:26:001.2 [facility]annCHEM VXRLW0683-96-59 05:26:00 Test Item Value Reference Range Interpretation Comments A/G Ratio (test code = A/G Ratio) 2.9 1 0.7-1.6 [facility] AzjwaleSBOFEWPQNW1966-63-85 05:26:00 Test Item Value Reference Range Interpretation Comments PT (test code = PT) 15.8 s 12.0-14.7 [facility] PjhhegqICYIURKHXR1728-41-72 05:26:00 Test Item Value Reference Range Interpretation Comments INR (test code = INR) 1.29 1 0.85-1.17 [facility] CenterTnqvuuvTMSZZJDLDN4925-30-94 05:26:00 Test Item Value Reference Range Interpretation Comments PTT (test code = PTT) 37.6 s 22.9-35.8 [facility] SlcifvmQNSMPOQEDG9705-45-82 05:26:33745Enoftibo HermannCHEM PANEL 2018-12-26 05:48:005.1[facility] HermannCHEM QMIXA1828-47-67 05:48:003.1[facility] HermannCHEM TXTYE4211-85-84 05:48:002.0[facility] HermannCHEM UUCXO9728-91-93 05:48:00 Test Item Value Reference Range Interpretation Comments A/G Ratio (test code = A/G Ratio) 1.6 1 0.7-1.6 [facility]annCHEM VMJDK3962-99-92 05:48:0051[facility]annCHEM PANEL 2018-12-26 05:48:0016[facility] HermannCHEM APQPY3688-49-17 05:48:0088[facility] HermannCHEM XHCIM3713-39-25 05:48:000.4[facility] HermannCHEM NKYKH3733-02-49 05:48:000.2[facility] HermannCHEM HERBR9923-27-19 05:48:000.2[facility]annURINE AND VVWDI9037-18-17 19:16:00Light Yellow *NA*(12/25/18 2:16 PM)[facility] URINE AND JVTDT0121-70-78 19:16:00Slight *ABN*(12/25/18 2:16 PM)[facility] URINE AND XHHKC0910-48-95 19:16:00 Test Item Value Reference Range Interpretation Comments UA Spec Grav (test code = UA Spec 1.013 1 Grav) [facility] FHRZG9953-54-16 19:16:00 Test Item Value Reference Range Interpretation Comments UA pH (test code = UA pH) 5.0 1 5.0-8.0 [facility] VKRQS5317-56-72 19:16:00Negative *NA*(12/25/18 2:16 PM) [facility] FFENI2631-01-43 19:16:00Negative (12/25/18 2:16 PM) [facility] CEWQU4066-04-71 19:16:00<1.0[facility]UR[facility] AND OXLKU6937-40-07 19:16:00Negative (12/25/18 2:16 PM)[facility] PHOTQ5392-46-58 19:16:00Negative (12/25/18 2:16 PM)[facility] PCKFN9584-11-77 19:16:004[facility]UR[facility] AND SFHBY7426-54-00 19:16:001 [facility]annCHEM CZGGU8399-65-57 08:58:001.8[facility] HermannHEMATOLOGY 2018-12-25 08:58:00 Test Item Value Reference Range Interpretation Comments Thrombin Time (test code = Thrombin 17.7 s 15.0-21.2 Time) [facility] ZnzllvlSYLHDFDQBS8015-65-53 08:58:002.84[facility] HermannBACTERIAL - HMZKEWPP9614-76-26 05:22:00Negative (12/25/18 12:22 AM)[facility] HermannCHEM PANEL 2018-12-25 05:22:002.3[facility] HermannDRUG ITYZPI4541-79-29 05:22:00Negative *NA*(12/25/18 12:22 AM)[facility] HermannDRUG KPHCFM6825-44-64 05:22:00Negative *NA*(12/25/18 12:22 AM)[facility] HermannDRUG VGWVUJ4886-82-00 05:22:00Positive *ABN*(12/25/18 12:22 AM)[facility] HermannDRUG HGGOWU2795-88-20 05:22:00Negative *NA*(12/25/18 12:22 AM)[facility] HermannDRUG BJULTQ7011-98-00 05:22:00Negative *NA*(12/25/18 12:22 AM)[facility] HermannDRUG VHXXDV6933-99-78 05:22:00Positive *ABN*(12/25/18 12:22 AM)[facility] HermannDRUG DEAOVC8517-42-10 05:22:00Negative *NA*(12/25/18 12:22 AM)[facility] HermannDRUG BZAYGM5852-92-20 05:22:00See Note (12/25/18 12:22 AM)[facility] UdwuiudDVUPWYFENK9373-88-23 05:22:00Negative 7(12/25/18 12:22 AM)[facility] TrodxwvMNIPKFKEHX1189-21-58 05:22:00 Test Item Value Reference Range Interpretation Comments Pat Od Value (test code = Pat Od 0.215 1 Value) [facility] IfwdmmcRMKZGGZCQQ4284-90-79 05:22:00 Test Item Value Reference Range Interpretation Comments Pos CO Value (test code = Pos CO 0.400 1 Value) [facility] NOUAB5567-54-88 05:22:00Amber *ABN*(12/25/18 12:22 AM) [facility] KWVOP3313-78-11 05:22:00Slight *ABN*(12/25/18 12:22 AM) [facility] YBCAA8792-77-50 05:22:00 Test Item Value Reference Range Interpretation Comments UA Spec Grav (test code = UA Spec 1.029 1 Grav) [facility] OQLAT5184-66-73 05:22:00 Test Item Value Reference Range Interpretation Comments UA pH (test code = UA pH) 5.0 1 5.0-8.0 [facility]UR[facility] AND ZKKBR9600-25-57 05:22:00Negative *NA*(12/25/18 12:22 AM)[facility]UR[facility] AND UXYAS0520-69-52 05:22:00Moderate *ABN*(12/25/18 12:22 AM)[facility]UR[facility] AND JKTYL7880-94-09 05:22:004.0[facility] URINE AND BKBNC0136-10-96 05:22:00Negative (12/25/18 12:22 AM)[facility] URINE AND JECKW9361-00-49 05:22:00Negative (12/25/18 12:22 AM)[facility] URINE AND YYACC7526-92-17 05:22:003[facility]annUR[facility] AND YDKNM5673-58-66 05:22:0037[facility]annUR[facility] AND CQQFN4654-60-05 05:22:0023[facility] URINE AND PIAHF7711-26-96 05:22:001[facility] VANCOMYCIN:SUSC:PT:ISOLATE:ORDQN:GMC0464-77-42 05:22:00Staphylococcus aureus [facility] BANK SXYZBTE5396-68-58 23:54:00Negative 5(12/24/18 6:54 PM) [facility]annCARDIAC JEWPDER5681-62-60 23:54:0062[facility] HermannCHEM PANEL 2018-12-24 23:54:0027.0[facility] HermannCHEM BSUPF9046-59-62 23:54:005.0[facility] HermannCHEM JDJND0712-18-21 23:54:0011.80[facility] HermannCHEM VRWLK9669-79-41 16:13:0076[facility] HermannCHEM ASFCP4741-20-80 16:13:000.79[facility] HermannCHEM CPEJO2122-45-20 16:13:08640Lzhjwbiq HermannCHEM UJOXO0820-40-62 16:13:004.2 [facility]annCHEM MTICI2739-51-50 16:13:0019[facility] HermannCHEM PANEL 2018-11-29 16:13:009.3[facility] HermannCHEM OHGNP2846-47-09 16:13:10006Tyfwmozm HermannCHEM FMQRV4618-38-80 16:13:0030[facility] HermannCHEM WATQB5104-94-65 16:13:03246Iiuvtcek HermannCHEM JODLK6141-02-38 16:13:0010.2[facility] URINE AND OJXNB9740-39-17 15:09:00None Seen (11/29/18 10:09 AM)[facility] URINE AND DXUOT4869-36-98 15:09:000.2[facility]annUR[facility] AND BAJDK7397-33-36 15:09:00Negative (11/29/18 10:09 AM)[facility] AND IXQVF7187-53-78 15:09:00Negative (11/29/18 10:09 AM)[facility]UR[facility] AND KYGXT7667-21-04 15:09:00Small *ABN*(11/29/18 10:09 AM)[facility] ONVHF0028-90-28 15:09:00Negative (11/29/18 10:09 AM)[facility]UR[facility] AND LQYHE4622-40-64 15:09:00 Test Item Value Reference Range Interpretation Comments UA pH (test code = UA pH) 5.5 1 5.0-8.0 [facility]UR[facility] AND SMJIG5860-68-33 15:09:00Negative *NA*(11/29/18 10:09 AM) [facility] QBFDB1059-30-09 15:09:00Negative (11/29/18 10:09 AM) [facility] ZSFBB4393-26-35 15:09:00Yellow *NA*(11/29/18 10:09 AM) [facility] GHPZB0912-86-25 15:09:00Slight Cloudy (11/29/18 10:09 AM)[facility] PMAQT4869-10-43 15:09:00>=1.030 *ABN*(11/29/18 10:09 AM)Jan Azul[[facility]] CMP W/[id number] 12:32:00 Test Item Value Reference Range Interpretation [...] 74 {ML/MIN/1.7} > OR = 60 N TRISTANIAN (test code = eGFR NON-) eGFR 86 {ML/MIN/1.7} > OR = 60 N TRISTANIAN (test code = eGFR ) BUN/CREATININE NOT [...] mg/dl 0.2-1.2 N Normal (test code = 83840-3) ALKALINE 156 u/l 33-130 PHSPHATASE (test code = ALKALINE PHSPHATASE) AST; Normal (test 34 u/l 10-35 N code = 1916-6) ALT; Above High 71 u/l 6-29 SPECIMEN REC EIVED DATE Threshold (test AND TIME: [id number] code = 1742-6) [facility]] CBC (INCLUDES DIFF/PLT)2018-11-18 12:32:00 Test Item Value Reference Range Interpretation Comments WHITE BLOOD CELL 12.2 3.8-10.8 COUNT (test code = {Thousand/u} WHITE BLOOD CELL COUNT) RED BLOOD CELL 4.89 3.80-5.10 N COUNT (test code = {Million/uL} RED BLOOD CELL COUNT) HEMAGLOBIN; Normal 15.4 g/dl 11.7-15.5 N (test code = 52488-0) HEMATOCRIT; Above 45.8 % 35.0-45.0 High Threshold (test code = 4544-3) MCV; Normal (test 93.7 fL 80.0-100.0 N code = 787-2) MCHC; Normal (test 33.6 g/dl 32.0-36.0 N code = 49147-0) RDW; Normal (test 14.4 % 11.0-15.0 N code = 788-0) PLATELET COUNT; 177 140-400 N Normal (test code {Thousand/u} = 777-3) MPV; Normal (test 11.0 fL 7.5-12.5 N code = 27672-3) ABSOLUTE 71587 1361-1072 NEUTROPHILS (test {cells/uL} code = ABSOLUTE NEUTROPHILS) ABSOLUTE 3692 344-2647 N LYMPHOCYTES (test {cells/uL} code = ABSOLUTE [...] Normal 1.7 % N (test code = 53612-7) EOSINOPHILS; 0.1 % N Normal (test code = 27033-4) BASOPHILS; Normal 0.2 % N (test code = 86485-3) COMMENT(S) (test See Comment Review of p eripheral code = COMMENT(S)) smear con firmsautomated results.SPECIME N RECEIVED DATE A ND TIME: [facility] Chest 2 views [id number] 10:03:00 PROCEDURE: Chest Radiograph.Clinical Indication: Pneumonia.Comparison: Chest radiograph 09/17/2018.FINDINGS:The chest shows minimal subsegmental atelectasis at the left lung base. Nofocal consolidationis identified. There is left-sided [employer] shunt tubing. Thereare calcified granulomata in the upper lobes.The cardiac silhouette is upper limits of normal in size. Degenerative changeinvolves the thoracic spine and shoulders. An old distal right claviclefracture is suspected.IMPRESSION:1. Minimal left lower lobe subsegmental atelectasis.SL:[id number]--Hjmb by: Eleazar Hamilton MDDictated Date/time: 11/18/18 10:49Electronically Signed by: Eleazar Hamilton MD 11/18/1909:52FINAL REPORTUnInterm[facility] Bone Density DXA [employer] [id number] 10:53:00BONE DENSITY ASSESSMENT: 10/21/2018CLINICAL DATA: Post menopausal [...] was performed 10/21/2018 on the AP L2- F1hjxaor of spine using a Hologic unit. The [...] careprovider is recommended.This exam was interpreted at [id number] for CRISPIN Riojas 15. Betzy Caba M.D., ms/elke:10/21/2018 12:45:40 Roller Stainer(s): Hailey Cornejo [facility]--Read by: Betzy Caba MDDictated Date/time: 10/21/18 12:45Electronically Signed by: Betzy Caba MD 10/22/1911:45[facility]PORTUn[facility] BshjbhbgkxKDWEFNJRJB7471-41-91 15:20:0010.6[facility] NfutlgwTUALEVFOHB1199-75-64 15:20:0091.5[facility] XaohpzoFSNGGQMHKG1065-70-63 15:20:0042.9[facility] WGANTMEFEO4085-89-14 15:20:00 Test Item Value Reference Range Interpretation Comments MCH (test code = MCH) 31.0 pg 27.0-31.0 [facility] JkypwgzQHBTOFYPRV4381-21-29 15:20:0014.1[facility]ann[facility]OLOGY 2018-09-23 15:20:0033.8[facility] OksinorSOKAHGQZSV7522-23-83 15:20:74909Uuqdxxfz GdglckiIYMBPUJDWQ4274-52-74 15:20:0014.5[facility] JpllhxfADQVGIBPDW1209-96-57 15:20:0010.8[facility] JhohcdrLAMJSUCOSP2451-83-76 15:20:004.69[facility] PZIJKARSYF1612-70-40 15:20:000.1[facility] DkwrpqsKBEDEVZTIS4104-27-17 15:20:00 70.7[facility] OpfgfhaJGLMFXZCNO5249-71-15 15:20:0021.8[facility]annHE[facility]OLOGY 2018-09-23 15:20:002.4[facility] JmtsgisCADWVAWRUX4626-50-86 15:20:007.6[facility] GrngjenXDBGOLTWKY8989-39-02 15:20:000.7[facility] IcnokwmVSJDHFPRXU3334-07-26 15:20:006.7[facility] HeupnprXOXACDZCIM6793-64-98 15:20:000.3[facility] UFMHYKPLLQ1285-07-26 15:20:000.5[facility]annCHEM BYLJS8301-12-63 10:38:002.2 [facility]annCHEM HPTMW5390-36-37 10:38:003.0[facility]annCHEM PANEL 2018-09-23 10:38:0069[facility] HermannCHEM NJTEU7023-88-24 10:38:0028[facility]annCHEM IHSLT4157-28-28 10:38:77775Nbvwpzqh HermannCHEM QCYZH7695-29-84 10:38:003.8[facility]annCHEM USYZH0790-99-58 10:38:55223Zydjtlnk HermannCHEM FDFLV2201-74-38 10:38:009.8[facility]annCHEM HOALE8168-76-68 10:38:008.1 [facility]annCHEM CLRRF7665-57-98 10:38:0023[facility]annCHEM PANEL 2018-09-23 10:38:000.86[facility]annCHEM ANRJN8329-19-53 10:38:0043[facility] SqzrxqbYPPBQCVOKQ2315-92-21 10:38:0014.6[facility] QeaultgQHIYYFTAVH4099-68-76 10:38:0044.7[facility] ZwlqzcqRVJAIEJGJK4738-54-89 10:38:004.85[facility] PNVZFMFDSP6779-78-42 10:38:0014.1[facility] TbfzwvtAATMKGFMXP5340-48-45 10:38:00 10.9[facility] RczlwswRXXHGWUHQG4884-14-89 10:38:0014.2[facility]annHEMATOLOGY 2018-09-23 10:38:38043Jypnbdmk OuygvivDWSOBJQNYY3806-71-14 10:38:0092.2[facility] VbuduwrSKEZPMGFLC1735-08-11 10:38:00 Test Item Value Reference Range Interpretation Comments MCH (test code = MCH) 30.1 pg 27.0-31.0 [facility] NeetzvoXNJLUUVDWM0360-31-54 10:38:0032.6[facility] HermannPARATHYROID FVQNGFV9554-02-07 10:38:001.05[facility]annPARATHYROID IFNWHLT1226-61-26 10:38:001.00[facility]annCHEM WZITZ2170-98-03 06:22:000.6[facility]annCHEM AUMAR9523-61-89 06:22:0035[facility]annCHEM EBIHT8583-19-03 06:22:0095 [facility]CHE[facility] LRCCQ1676-20-05 06:22:0047[facility]annCHEM PANEL 2018-09-22 06:22:0052[facility]annCHEM UYNWW2922-78-58 06:22:002.3[facility]annCHEM TIULN3490-39-07 06:22:007.1[facility]annCHEM JTGER8623-64-59 06:22:0026[facility]annCHEM RNAXZ1462-52-67 06:22:008.1[facility]annCHEM HQHWE1087-63-67 06:22:69818Yglebjnu HermannCHEM MBSWI5852-34-27 06:22:004.3 [facility]annCHEM WEPDL2058-96-55 06:22:14539Axylkkwv HermannCHEM PANEL 2018-09-22 06:22:001.07[facility]annCHEM MPMGM4845-27-83 06:22:86680Uzvezrpq HermannCHEM IYOMS2091-76-92 06:22:0029[facility]annCHEM LGRYC6768-91-51 06:22:004.8[facility]annCHEM VISKY1044-91-85 06:22:00 Test Item Value Reference Range Interpretation Comments A/G Ratio (test code = A/G Ratio) 0.5 1 0.7-1.6 [facility]CHE[facility] UDZNG4320-34-84 06:22:00 Test Item Value Reference Range Interpretation Comments B/C Ratio (test code = B/C Ratio) 27 1 6-25 [facility]annCHE[facility] MHBDY9695-67-33 06:22:0011.3[facility]annHEMATOLOGY 2018-09-22 06:22:006.5[facility] EyoitpvJCOXPXMVEG5129-07-64 06:22:000.1[facility] ZfwenqzPPJCOTYIQZ5108-67-35 06:22:000.2[facility] AcwimaqPBBGWZVETQ8950-82-67 06:22:0073.8[facility] XxbnngcJFRYWDYYZI3631-60-71 06:22:0019.4[facility] HKGLZXNYLD5995-07-06 06:22:006.0[facility] VtxhylpQOJAAVFTLE3277-00-36 06:22:001.6 [facility] MzljntoUXPCIZEPXT4789-65-05 06:22:000.5[facility]annHEMATOLOGY 2018-09-22 06:22:0011.3[facility] SkjurjlZBGHUYYHFE2247-68-21 06:22:0033.1[facility] BepwfuoEXKBLTFRWL4432-34-78 06:22:0014.0[facility] MwcpbnuZKLUEUFJJU2392-93-23 06:22:61659Tetursua OzhrwuyXIJDZUUZEZ0548-16-78 06:22:0093.1[facility] VDFFOZYCER5210-64-79 06:22:0044.2[facility] MnztlpvUDIWSSJHVH2779-02-41 06:22:00 Test Item Value Reference Range Interpretation Comments MCH (test code = MCH) 30.8 pg 27.0-31.0 [facility] BjuqbimUWYOROTQEX4734-20-45 06:22:004.74[facility]annHEMATOLOGY 2018-09-22 06:22:008.1[facility] SnwlqsvCZIRHUCXID6807-26-33 06:22:0014.6[facility]annCHEM CFCQL1041-24-50 07:00:003.3[facility]annCHEM KULMF6875-77-73 07:00:002.0[facility]annCHEM SSYHD8167-23-90 07:00:0070[facility]annCHEM HMCRQ4088-69-47 07:00:008.7[facility]annCHEM SROFN0365-33-22 07:00:000.84 [facility]annCHEM WNZNS8306-78-47 07:00:84896Zbrdhvpz HermannCHEM PANEL 2018-09-18 07:00:0032[facility]annCHEM JNTMJ2342-95-02 07:00:91527Ykoulebb HermannCHEM SUJII2889-60-00 07:00:0032[facility]annCHEM JRVQJ2340-40-48 07:00:003.9[facility]annCHEM VJATP0795-37-39 07:00:42460Kurnpfvu HermannCHEM RIWTN1488-38-19 07:00:007.9[facility] MxsrzkdQUWSXDZIJT4246-24-58 07:00:000.7 [facility] BmiwwwlCBOLWHLGTQ7662-14-62 07:00:001.7[facility]annHEMATOLOGY 2018-09-18 07:00:006.0[facility] KtocuzzIMWXUPXXCV6677-21-09 07:00:000.1[facility] DddviwpATGVTOHIPP4653-87-48 07:00:008.5[facility] VxrjxqxDQSWONRDUV6507-90-20 07:00:0020.3[facility] JynympdGVVFRNGONQ5205-02-41 07:00:0071.1[facility] HQEGHXNVAU8724-58-20 07:00:0033.8[facility] RiiyahvRWDSEWVHAS8917-88-95 07:00:00 14.1[facility] McurjcmSIDRWZEWHQ3888-76-12 07:00:00 Test Item Value Reference Range Interpretation Comments MCH (test code = MCH) 31.2 pg 27.0-31.0 [facility] AbxxwfsGCIHRNRUFG5958-42-76 07:00:0092.2[facility] HermannHEMATOLOGY 2018-09-18 07:00:0044.7[facility] MwqroylOZCABFYDYN1662-44-32 07:00:004.85[facility] VibdqxqWKGJIRKMFH9616-12-15 07:00:008.5[facility] XeksabgCEXRIJSNHV4739-35-02 07:00:0015.1[facility] CsattjvUTERYFVICZ0076-97-93 07:00:0011.8[facility] VAVPQYOLFF2993-85-89 07:00:0081[facility]annPARATHYROID OBEMRNG0757-66-71 07:00:001.09[facility]annPARATHYROID CUHONVZ7810-42-22 07:00:001.09[facility]annCHEM TEUJD0435-90-50 06:12:002.0[facility]annCHEM HUYBW8259-11-00 06:12:008.6[facility]annCHEM YFSXA9846-52-88 06:12:006.4[facility]annCHEM JFPII5367-91-52 06:12:0070[facility]annCHEM IDJTU4482-39-47 06:12:003.4 [facility]annCHEM GHFZU9652-13-11 06:12:53342Wtawmrln HermannCHEM PANEL 2018-09-17 06:12:34154Jvcaruzp HermannCHEM ZTERS2778-02-78 06:12:000.84[facility]annCHEM KHUMF3600-25-73 06:12:0035[facility]annCHEM BNWNT1427-92-87 06:12:39143Xowqlecp HermannCHEM EXUSV1436-85-31 06:12:0037[facility]annCHEM LYPJZ5353-73-23 06:12:002.6[facility] FdgngwmFZRUWUIRFN6931-62-61 06:12:0071 [facility] ChkudwgBHNAHBYMXL4278-24-00 06:12:0033.1[facility] HermannHEMATOLOGY 2018-09-17 06:12:0010.7[facility] TenskpuDTQDIGLRHP9543-98-74 06:12:0014.1[facility] KjwkxknLQCVMKRLZT5928-91-28 06:12:00 Test Item Value Reference Range Interpretation Comments MCH (test code = MCH) 30.4 pg 27.0-31.0 [facility] FojauslCESRQWMJXN7076-43-82 06:12:009.7[facility] HermannHEMATOLOGY 2018-09-17 06:12:0092.0[facility] PmgxopbIYLEZWRECU1616-24-14 06:12:0044.7[facility] CrhcbzuDPIGWOQOPX8674-82-36 06:12:004.86[facility] KkwidyyTPVEUUGZPG9481-86-62 06:12:0014.8[facility] VqmuzwzNPCGTKLCVC2051-82-30 06:12:001.4[facility] XJQRYFHWYB5365-91-77 06:12:007.6[facility] WweoyegYOQLJYIZUI0129-29-39 06:12:007.0 [facility] BlpsmdyZEBOKQEKQY2801-19-85 06:12:000.5[facility]annHEMATOLOGY 2018-09-17 06:12:0014.4[facility] HanrzibUUECXGCCFQ0578-07-33 06:12:000.7[facility] YkwdtgqOWJVYMJGWE3600-63-59 06:12:0078.1[facility] HermannPARATHYROID PROFILE 2018-09-17 06:12:001.11[facility] HermannPARATHYROID JXWNGGD4448-19-22 06:12:00 1.14[facility]annCHEM LRFZW8288-95-39 05:36:002.1[facility] HermannCHEM PANEL 2018-09-16 05:36:002.0[facility] CtoznjvSIOISJVFVBOB6136-73-19 05:36:008.1[facility] BxugzyjVPTFJOTYCRJH7675-91-76 05:36:0047[facility] EmgyujbIAWGTZJBTSQQ6273-94-72 05:36:0033[facility] EikucbxADGZORNCLVWH4665-39-13 05:36:008.4[facility] GCKNAAQLEWRG0480-01-42 05:36:004.1[facility] OsuyikpCLSDAZPCJUFN8498-12-80 05:36:64366Bjusygaa PtodrnoMIPLWDOINOSL5261-11-54 05:36:52854Yodggstq [facility] XGABEQMARQSX1933-89-99 05:36:0037[facility] HjlxwybZZEJEQDZCMFB2040-69-07 05:36:00 1.17[facility] NujyodkPZRYJXRWGASH4978-07-26 05:36:84827Skaqwlzc HermannHEMATOLOGY 2018-09-16 05:36:0077[facility] RbyrszrOSWJSTWTPV2244-53-77 05:36:0033.5[facility] VshgbuhHYBZNISQWD4345-90-30 05:36:0014.2[facility] XfsnawtBTJRVISLFF9350-17-73 05:36:0011.1[facility] EkfeutrIAJOKLABIC1832-80-13 05:36:0092.4[facility] EPIJFWXHQT6111-57-41 05:36:00 Test Item Value Reference Range Interpretation Comments MCH (test code = MCH) 31.0 pg 27.0-31.0 [facility] OwilbraZEKJNLYJFO0014-48-68 05:36:0041.6[facility] HermannHEMATOLOGY 2018-09-16 05:36:004.50[facility] ArissokQDJMDYRVJX6804-62-87 05:36:0014.0[facility] HzrfmujJQXSUUSXCT8679-57-52 05:36:0010.6[facility] RepqnxoTFTFXDUENN1534-63-22 05:36:008.8[facility] XykqzwzQKYUXYHDWC2394-27-91 05:36:000.7[facility] TTAOOBEIQB8852-83-99 05:36:000.3[facility] PkmpqmaDNWYQDHIYO4531-11-91 05:36:001.0 [facility] HbnqsypZPCAZTVEHT3460-46-59 05:36:0083.3[facility] HermannHEMATOLOGY 2018-09-16 05:36:009.9[facility] BahxgqfXHUSWVJLCL5039-53-77 05:36:006.5[facility] HermannPARATHYROID NLEDPEA3415-45-15 05:36:001.13[facility] HermannPARATHYROID KTQWQUB5664-02-97 05:36:001.13[facility]UR[facility] AND LNPYT8076-02-17 22:04:00 3[facility]UR[facility] LRUBQ4932-50-93 22:04:001[facility] JCYIC8609-18-29 22:04:00 Test Item Value Reference Range Interpretation Comments UA pH (test code = UA pH) 5.5 1 5.0-8.0 [facility] POLKL5023-26-39 22:04:46767 *ABN*(09/15/18 5:04 PM) [facility] VMIEC9485-05-11 22:04:00Negative *NA*(09/15/18 5:04 PM) [facility] ZRYZX9761-62-71 22:04:005[facility] UREIF8213-31-50 22:04:004[facility] LLGTX8720-95-95 22:04:00 Negative (09/15/18 5:04 PM)[facility] TKSPI4643-64-03 22:04:00 Negative (09/15/18 5:04 PM)[facility] CFYSF5407-68-00 22:04:000.2 [facility] KHWKX9465-85-50 22:04:00Negative (09/15/18 5:04 PM) [facility] GZIFJ1644-19-43 22:04:00Negative *NA*(09/15/18 5:04 PM) [facility] KJBPI3184-98-37 22:04:00 Test Item Value Reference Range Interpretation Comments UA Spec Grav (test code = UA Spec 1.025 1 Grav) [facility] RLNJX9883-42-74 22:04:00Clear (09/15/18 5:04 PM) [facility] HZAGH1971-63-76 22:04:00Yellow *NA*(09/15/18 5:04 PM) [facility] MtgpxyaQJSVOUOEKW6131-91-88 17:20:00<1.0[facility] HermannBACTERIAL - JMGIJBRZ3958-37-44 16:23:00Negative (09/14/18 11:23 AM)[facility] HermannIMMUNOLOGY 2018-09-14 14:09:001.25[facility] ZivlmdbWGZQDRHPVU9029-23-87 14:09:0042[facility] KhaaxbkHJCNHGJKSU5786-31-71 08:47:000.1[facility] GntlgdzVEWHZDXPBL9291-00-06 08:47:000.1[facility] JjesegdAXHVQOXDJE5619-31-95 08:47:001.1[facility] RWTAQBPKQK6391-14-71 05:36:000.1[facility] NfcsittMVLYUKRHNK3279-97-11 05:36:000.1 [facility] QqqorkhSEGGYTZFJV9465-97-38 05:36:000.9[facility] STOOL 2018-09-12 16:27:00<1.0[facility] LUFYA5150-11-51 16:27:00 Trace *ABN*(09/12/18 11:27 AM)[facility] XJFNZ0852-99-04 16:27:00 Small *ABN*(09/12/18 11:27 AM)[facility] KKYBX4888-02-18 16:27:00 Negative *NA*(09/12/18 11:27 AM)[facility] HDYUJ1309-68-21 16:27:00Slight *ABN*(09/12/18 11:27 AM)[facility] MEPKL0496-48-06 16:27:00 Test Item Value Reference Range Interpretation Comments UA pH (test code = UA pH) 5.0 1 5.0-8.0 [facility] DGFDA0585-16-30 16:27:00 Test Item Value Reference Range Interpretation Comments UA Spec Grav (test code = UA Spec 1.018 1 Grav) [facility] JFRYX0227-74-99 16:27:00Yellow *NA*(09/12/18 11:27 AM) [facility] IVFET4212-17-31 16:27:004[facility] SSIOQ8796-49-60 16:27:004[facility] XZSNG1699-90-12 16:27:00 Negative (09/12/18 11:27 AM)[facility] IIEVG4134-03-40 16:27:001 [facility] VAHVI6032-79-26 16:27:00Negative (09/12/18 11:27 AM) [facility]annCHEM KKAVP5708-04-88 09:34:000.7[facility]annCHEM PANEL 2018-09-12 09:34:19828Dbjixuwz HermannCHEM MYCFU9857-75-25 09:34:008.3[facility]annCHEM QEWDK0307-05-60 09:34:0025[facility]annCHEM JDTCP7020-73-85 09:34:0034[facility]annCHEM PYHHT3133-55-47 09:34:002.7[facility]annCHEM HUSBN4833-21-77 09:34:005.6[facility]annCHEM SVVWA7211-07-31 09:34:00 Test Item Value Reference Range Interpretation Comments B/C Ratio (test code = B/C Ratio) 9 1 6-25 [facility]annCHEM OGFQN5985-04-16 09:34:00 Test Item Value Reference Range Interpretation Comments A/G Ratio (test code = A/G Ratio) 0.5 1 0.7-1.6 [facility] KxouhmqACPNLHOVTH4207-56-03 09:34:00 Test Item Value Reference Range Interpretation Comments PTT (test code = PTT) 31.6 s 22.9-35.8 [facility] UffzmwwRONLFFMYNC9058-33-27 09:34:00 Test Item Value Reference Range Interpretation Comments PT (test code = PT) 14.2 s 12.0-14.7 [facility] TycmmjgSJZYPVNZNY8811-70-91 09:34:00 Test Item Value Reference Range Interpretation Comments INR (test code = INR) 1.12 1 0.85-1.17 [facility] JnssgyhLAOMPMQLVX0850-53-18 09:34:002.4[facility]annHEMATOLOGY 2018-09-12 09:34:000.2[facility] YwolpvpYSIOYHDBDU1086-43-41 09:34:000.2[facility] HermannCHEM TXMOQ3374-23-05 07:19:00<0.1[facility]annCHEM EROTN4747-04-11 07:19:00 Test Item Value Reference Range Interpretation Comments A/G Ratio (test code = A/G Ratio) 0.5 1 0.7-1.6 [facility]annCHEM YXMKU7334-85-38 07:19:0040[facility]annCHEM PANEL 2018-09-11 07:19:0031[facility]annCHEM HYQVJ5856-85-50 07:19:73938Jfgpwvqr HermannCHEM PRXVL3674-53-30 07:19:000.8[facility]annCHEM UPPJI5723-33-02 07:19:007.3[facility]annCHEM GPVFF8849-82-76 07:19:002.5[facility]annCHEM FXZVI7119-12-24 07:19:004.8[facility]annBLOOD BANK EGWZZIP8840-58-33 22:06:00 Negative (09/10/18 5:06 PM)[facility]annCHEM JRSOS4950-87-50 22:06:29526 [facility]annCHEM FUZEH8204-47-67 22:06:000.8[facility]annCHEM PANEL 2018-09-10 22:06:0045[facility]annCHEM KYJOI8981-58-20 22:06:0035[facility]annCHEM VSLFR0198-20-17 22:06:007.1[facility]annCHEM VIHIR7003-14-01 22:06:002.9[facility]annCHEM AJZZG9512-79-64 22:06:00 Test Item Value Reference Range Interpretation Comments B/C Ratio (test code = B/C Ratio) 11 1 6-25 [facility] ONTAK8295-11-02 22:06:00 Test Item Value Reference Range Interpretation Comments A/G Ratio (test code = A/G Ratio) 0.7 1 0.7-1.6 [facility]CHE[facility] DSDFD5139-20-52 22:06:004.2[facility]annHEMATOLOGY 2018-09-10 22:06:00Negative 1(09/10/18 5:06 PM)[facility] 2018-09-10 22:06:00 Test Item Value Reference Range Interpretation Comments Pat Od Value (test code = Pat Od 0.127 1 Value) [facility] CenterDfwlelbVPUSIHBXTW8305-11-12 22:06:00 Test Item Value Reference Range Interpretation Comments Pos CO Value (test code = Pos CO 0.400 1 Value) [facility] CenterDbbcequEOYXIXIGIH6508-73-40 22:06:00 Test Item Value Reference Range Interpretation Comments INR (test code = INR) 1.08 1 0.85-1.17 [facility] CenterSaqbrekJBJLFPAFZG1130-11-89 22:06:00 Test Item Value Reference Range Interpretation Comments Thrombin Time (test code = Thrombin 19.1 s 15.0-21.2 Time) [facility]sttujmKKJZMOVVOH9846-41-72 22:06:001.22[facility]annHEMATOLOGY 2018-09-10 22:06:88624Tsmxtgdi NzurjxyPKVEHGIYFY7878-32-96 22:06:00 Test Item Value Reference Range Interpretation Comments PTT (test code = PTT) 30.3 s 22.9-35.8 [facility] YqkoafdEARTPODNRB3484-80-50 22:06:00 Test Item Value Reference Range Interpretation Comments PT (test code = PT) 13.8 s 12.0-14.7 [facility] EmvybmmZIZQIGZBCT0018-21-80 22:06:03199.0[facility] DZYUC9837-17-26 22:06:00Marked *ABN*(09/10/18 5:06 PM)[facility] TXHLT1113-26-82 22:06:00Yellow *NA*(09/10/18 5:06 PM)[facility] NEYYH1864-99-67 22:06:00 Test Item Value Reference Range Interpretation Comments UA pH (test code = UA pH) 6.0 1 5.0-8.0 [facility] EPBRP4274-14-21 22:06:00Trace *ABN*(09/10/18 5:06 PM) [facility] WGDKD9195-95-38 22:06:00Negative *NA*(09/10/18 5:06 PM) [facility] PSULA9354-52-81 22:06:00Trace *ABN*(09/10/18 5:06 PM) [facility] GKIFN5948-27-69 22:06:00<1.0[facility] BFIWW2245-47-63 22:06:00Small *ABN*(09/10/18 5:06 PM)[facility] DJWTP0554-78-69 22:06:00Negative (09/10/18 5:06 PM)[facility] YYXQA7228-00-01 22:06:00 Test Item Value Reference Range Interpretation Comments UA Spec Grav (test code = UA Spec 1.012 1 Grav) [facility] KPCOO7665-41-73 22:06:0019[facility] LCJNO4822-26-20 22:06:001[facility] ObtliizSYSLTASPPW1958-33-70 14:47:000.0 [facility] MqpgfnkQQTBJPRVBM6926-58-16 14:47:000.0[facility] HermannIMMUNOLOGY 2018-09-10 14:47:18961.0[facility] FbslcffCLRECUCSKS7420-19-39 16:20:0020[facility] YpjzqnnVXPIWCUSOI0952-94-53 16:20:005.2[facility] EoqslloOYRMGEQPUR2955-95-06 16:51:00 Test Item Value Reference Range Interpretation Comments PTT (test code = PTT) 32.0 s 22.9-35.8 [facility] FunyzjuEDMGLOQCJP4707-24-59 16:51:00 Test Item Value Reference Range Interpretation Comments PT (test code = PT) 13.5 s 12.0-14.7 [facility] ZmfxmkqBMFSOIPUQK3686-95-31 16:51:00 Test Item Value Reference Range Interpretation Comments INR (test code = INR) 1.05 1 0.85-1.17 [facility] FvqlqbvKZPOTUAVGZAM4580-10-30 16:46:0015.8[facility] HermannELECTROLYTES 2018-09-08 16:46:00 Test Item Value Reference Range Interpretation Comments B/C Ratio (test code = B/C Ratio) 16 1 6-25 [facility] LpesuxcAXZCKSBDHMUB6374-07-10 16:46:004.2[facility] HermannELECTROLYTES 2018-09-08 16:46:00 Test Item Value Reference Range Interpretation Comments A/G Ratio (test code = A/G Ratio) 0.7 1 0.7-1.6 [facility] OriqmstBAYVWSVCIFJX8750-50-47 16:46:95330Eserqwxn HermannELECTROLYTES 2018-09-08 16:46:003.8[facility] AokvkfoIRYODYZVHKDQ6810-08-41 16:46:37990Lmmaamob AaptvumLDFFPIIALBTW7607-82-37 16:46:0021[facility] JosvrbbUWHARXIUZHIP1909-35-58 16:46:33171Ssekrlvs FbyhjgeLYBMIRKPCFZN7271-45-41 16:46:002.9[facility] NIBRFIXIBBTM8079-25-50 16:46:0028[facility] JtysdqdNNQJFKBIRNVQ6142-05-51 16:46:00 40[facility] SpmdztzYGVWWITJTGZM9450-87-73 16:46:10874Pttpltpe HermannELECTROLYTES 2018-09-08 16:46:0067[facility] TsfvfwuTATXXBZCZTBD9378-77-72 16:46:001.33[facility] JtwoxgmNOGHMYENETKS6574-38-72 16:46:001.3[facility] XwmsoiuYYUUUHIIKPAW1259-55-12 16:46:007.1[facility] TqrslohEJCYSTWNVOCI7920-24-90 16:46:20663Wthsdrth [place] UXKALAQRWZOL2496-21-31 16:46:009.3[facility] XwrqwrqKKEAIVDYHM4267-62-42 16:46:00 0.1[facility] MgcnbulVWZDTFUICA9560-33-97 16:46:002.5[facility]annHEMATOLOGY 2018-09-08 16:46:000.2[facility] HdeaoayCMKHQXUMMM0981-00-40 16:46:000.7[facility] DnclvtxJSIRLYXCQN1932-40-16 16:46:003.3[facility] StrqnmhTNIEEHGURE7740-09-01 16:46:009.8[facility] MeyvkxgKARCFFIOWN8594-97-11 16:46:002.5[facility] PLCBNEENVJ9413-29-21 16:46:002.0[facility] EitekkxGORJOBCWTX9766-29-92 16:46:00 48.8[facility] ZtdvwuqZYXSWVNYQY3338-59-31 16:46:0036.9[facility] HermannHEMATOLOGY 2018-09-08 16:46:0011.3[facility] JaeyuqtXKARMCCBCO0520-94-36 16:46:00 Test Item Value Reference Range Interpretation Comments MCH (test code = MCH) 30.3 pg 27.0-31.0 [facility] CtqusatAMXTBRTKGP8631-66-30 16:46:63481Bjmjmaid HermannHEMATOLOGY 2018-09-08 16:46:0013.9[facility] VrtzkuqTDXJGAUXJZ5957-52-78 16:46:0092.9[facility] XtgyowbOPFGZLKYOU6628-47-42 16:46:0032.6[facility] IoalsjwOPSUFOOLQF7541-89-18 16:46:006.8[facility] QfngtjwMSHJPMBFWN6738-39-95 16:46:005.13[facility] BMKNQIGHSG9309-46-24 16:46:0015.5[facility] JlhfnimVNJPRZWYZS8500-30-40 16:46:00 47.7[facility] MpvodlnMSVBGZ2292-26-52 16:46:00 Test Item Value Reference Range Interpretation Comments VLDL (test code = VLDL) 24 1 [facility] WxfuajfWBIOLD6117-46-13 16:46:0045[facility] XmwpoynVVQSXU6707-05-84 16:46:00 Test Item Value Reference Range Interpretation Comments CHD Risk (test code = CHD Risk) 2.82 1 3.90-5.80 [facility] UkwthtpRXVAWN5116-23-45 16:46:0038[facility] NtpxrumCRRVID0435-02-57 16:46:65982Ubpisdug IxmnpdoIBDTBU2589-17-37 16:46:05173Wjyjjuta HermannSPECIAL ATABTGCYE9494-53-20 16:46:0012.2[facility] SnodqixVLAZRGJRMT2205-43-70 22:52:009.7 [facility] PhrvzgwHSOBLDAUSW4881-41-75 22:52:88440Ypeqvkaq HermannHEMATOLOGY 2018-08-19 22:52:0013.7[facility] MojrjkvVWZZJJBHIQ6465-44-89 22:52:0017.8[facility] YypwpohZJCKKTOESI0213-56-03 22:52:0052.9[facility] KobwpmoJBNSTVSQXV3306-69-55 22:52:0092.3[facility] ReitfaqLDPMCRDMSC3054-38-44 22:52:005.73[facility] XPFUFIYKVF3271-74-28 22:52:008.5[facility] YirxhtvUVTTWODFRR4123-17-05 22:52:00 33.6[facility] VvlccpzFXUQPSZVVP4322-01-89 22:52:00 Test Item Value Reference Range Interpretation Comments MCH (test code = MCH) 31.0 pg 27.0-31.0 [facility] SZVJDHN9632-91-63 09:40:0098[facility]annCHEM PANEL 2018-08-19 09:40:003.4[facility]CHE[facility] FUZAN2295-50-15 09:40:001.9[facility]annCHE[facility] QFXAA9696-55-06 09:40:0062[facility]CHE[facility] FXDVQ4872-03-44 09:40:008.8[facility]annCHE[facility] ASXUU1326-69-67 09:40:0023[facility]annCHEM JYALH2716-52-00 09:40:50545Fgworahs HermannCHEM WJXLB2215-52-30 09:40:004.6 [facility]CHE[facility] UWHCV9666-86-59 09:40:000.94[facility]annCHEM PANEL 2018-08-19 09:40:21005Myuuxlmh HermannCHEM VEPKV6772-35-05 09:40:0013[facility]annCHE[facility] RSREI5544-11-35 09:40:51257Wfpryyun HermannCHEM ARHBH2484-68-63 09:40:0013.6[facility] NotvaehQSPOPKKRIE1600-42-57 09:40:000.2[facility] NXIAHNCRFZ4982-87-84 09:40:000.1[facility] FfmptpnWVZFKWHUVB7963-97-90 09:40:00 47.9[facility] ByyguwaBLRCBGHVXJ6214-57-48 09:40:0040.1[facility]annHEMATOLOGY 2018-08-19 09:40:003.9[facility] YvecvbiJYTFHWFZFA8948-21-32 09:40:000.9[facility] RtkqafxMYSWTCOLSS0367-60-79 09:40:008.8[facility] PtffdmiJLQJESNKQL1421-82-05 09:40:001.2[facility] QkckzqwDYHKRKRWGG2851-83-29 09:40:002.0[facility] EQDSXKYFZI7349-10-17 09:40:004.7[facility] HdvdoqyHIMAVGXTFT5453-50-15 09:40:00 Test Item Value Reference Range Interpretation Comments INR (test code = INR) 1.09 1 0.85-1.17 [facility] SclzeckTHZJWAOXVZ3868-72-22 09:40:00 Test Item Value Reference Range Interpretation Comments PT (test code = PT) 13.9 s 12.0-14.7 [facility] RwwgsduQLOVFJJGQM0222-40-65 09:40:00 Test Item Value Reference Range Interpretation Comments PTT (test code = PTT) 31.0 s 22.9-35.8 [facility] VbcirynMHEYDEXHZY4163-52-74 09:40:0093.0[facility]annHEMATOLOGY 2018-08-19 09:40:00 Test Item Value Reference Range Interpretation Comments MCH (test code = MCH) 31.1 pg 27.0-31.0 [facility] TkzpbaaJHCNFKNVDB6650-62-41 09:40:0013.7[facility]annHEMATOLOGY 2018-08-19 09:40:0033.4[facility] AnjwxusXJTFDFVPOI8007-79-50 09:40:0077[facility] QconrknOGTOGSQQRI9461-01-99 09:40:009.9[facility] DvwxrhoROOEQTKBYF0068-67-59 09:40:0049.7[facility] ZwcgnndBNFDKCVQWW9117-99-75 09:40:0016.6[facility] PWHUPPHFJP1524-36-37 09:40:005.35[facility] DpvpcymDIXVUOWADS5250-26-80 09:40:00 9.7[facility] HermannPARATHYROID KJKGJJV4030-61-76 09:40:001.02[facility] PARATHYROID NYRCCVL2531-27-87 09:40:000.98[facility]annURINE AND STOOL 2018-08-19 09:40:00Negative (08/19/18 4:40 AM)[facility]annCHEM PANEL 2018-08-18 10:45:60279Ldbxyjet HermannCHEM MBXRF9465-12-74 10:45:00 Test Item Value Reference Range Interpretation Comments A/G Ratio (test code = A/G Ratio) 0.6 1 0.7-1.6 [facility]annCHE[facility] EHELD0767-39-61 10:45:0030[facility]annCHEM PANEL 2018-08-18 10:45:006.9[facility]annCHEM SKQVG1602-24-76 10:45:002.6[facility]annCHEM BBHUB2023-45-15 10:45:004.3[facility]annCHEM QPWGU6708-50-56 10:45:00<0.1[facility]annCHEM RLIWW9119-28-92 10:45:000.5[facility] CHEM OKJIS2755-81-28 10:45:00>0.4[facility]annCHEM WORLG9532-05-53 10:45:0021[facility]annCHEM ZLGWS8279-73-42 10:45:008.5[facility]annCHEM WCCJA4106-28-88 10:45:0071[facility]annCHEM UEMZJ2486-51-67 10:45:0013 [facility]annCHE[facility] NZURQ7796-15-31 10:45:09121Balzlaiq HermannCHEM PANEL 2018-08-18 10:45:0027[facility]annCHEM MRUTY4051-96-25 10:45:003.6[facility]annCHEM AGTSR4285-55-35 10:45:95769Wsymnlyn HermannCHEM JTRRI5124-98-61 10:45:77954Hmsggmbc HermannCHEM NZHZV5016-69-78 10:45:000.83[facility]annCHEM YHTNF4420-31-80 10:45:0010.6[facility]annCHEM ZHLKG1509-21-10 10:45:001.8 [facility]annCHE[facility] IWOVH5269-80-19 10:45:003.6[facility]annHEMATOLOGY 2018-08-18 10:45:003.9[facility] UxpzhogKQLLNTMZYP8071-70-45 10:45:002.5[facility] HzshbelKAIRZHDOCO2374-38-55 10:45:001.9[facility] LslrklvJZLNPOFHBK7450-85-70 10:45:000.6[facility] WqijtplKWSWPJDUYI0283-30-86 10:45:003.8[facility] PYTOOHDQEZ1997-79-29 10:45:000.2[facility] GqeqzuvIRLUMARBVF0005-91-33 10:45:000.2 [facility] EkgnzszIRKNEVZQZF7219-29-51 10:45:0044.0[facility]annHEMATOLOGY 2018-08-18 10:45:0045.3[facility] EhovixqZJKDMIOTIU9408-00-80 10:45:006.3[facility] QpngxayGIPSVAWKQA7823-05-95 10:45:0049.2[facility] FdnljxmSEYPKSNBWG2855-07-58 10:45:0017.0[facility] PctwgmqTIZJTJPLXG4944-18-74 10:45:005.30[facility] WJXDBZKFKJ2075-76-92 10:45:008.7[facility] IcjqezqGZFQLHXKOW7425-23-83 10:45:00 92.8[facility] DfitvckFMQOKXBKZZ3169-76-42 10:45:009.7[facility]annHEMATOLOGY 2018-08-18 10:45:0013.6[facility] JlqdyevMEFRLAMSSQ6595-61-75 10:45:60123Cvnmtfxv LtlukkpMYQTMVSEQW1388-43-69 10:45:0034.6[facility] YcefkpyIHGUQREFEQ7151-24-24 10:45:00 Test Item Value Reference Range Interpretation Comments MCH (test code = MCH) 32.1 pg 27.0-31.0 [facility]annPARATHYROID HAIVLGX4941-30-38 10:45:001.05[facility] PARATHYROID YFYZESF9980-94-36 10:45:001.06[facility] FbummrqNVXYYINWHU9924-62-79 04:46:110.9[facility] CpqqhnuPXVZEPIGHW8274-37-16 04:46:110.2[facility] IHIOYEUCBX6194-25-79 04:46:115.1[facility] NdoykelHOKGKBZHND8621-55-95 04:46:110.1 [facility] XqwixscEHKVYRBNVU3971-15-98 04:46:117.6[facility] HermannHEMATOLOGY 2018-08-17 04:46:1144.9[facility] EuouldoQAHMOBIJZC0541-51-06 04:46:1144.2[facility] MnyjevjGDOYICLMLZ1292-63-15 04:46:111.3[facility] ExvxibsZPJUWZCZNI2017-31-65 04:46:112.0[facility] KovcyskCRHIGADACC1839-42-20 04:46:115.2[facility] LGHRNQEXJUCS6891-38-32 20:35:0011.9[facility] FroyalfAYJKAJTZDHBB7951-78-45 20:35:0064[facility] NlmfiwrSRNCHLHHAVIR3580-95-71 20:35:77707Iflpumws [place] RHLVBKSVGIFY5178-22-18 20:35:003.9[facility] IvaisqiNEJHQEPEFVYO8523-09-42 20:35:98026Wezazvpz ElukebzOTGUNBSSNHZA1630-13-36 20:35:0030[facility] [place] JLEEXXDHQLBH0055-07-65 20:35:009.6[facility] BvfbmpvYNHFHPTUPHNM7681-00-86 20:35:0016[facility] GriplfpSEFLDSXGCXPT9021-05-80 20:35:21529Sgcssbsv [place] QLTDVQWGULGY5215-62-13 20:35:000.91[facility] CenterEybbmqtTAZQQLWGYN0619-75-84 20:35:00 Normal (08/16/18 3:35 PM)[facility]LgxcbumUAKROATWCP2209-94-49 20:35:00Normal (08/16/18 3:35 PM)[facility]XkzwmylHSLQLEPNWB2205-66-04 20:35:00 Test Item Value Reference Range Interpretation Comments PTT (test code = PTT) 32.0 s 22.9-35.8 [facility]InfsujtPJRLKLWUNA4293-08-76 20:35:00 Test Item Value Reference Range Interpretation Comments PT (test code = PT) 12.6 s 12.0-14.7 [facility] HospitalSurlbysTFUIZZFDPF1542-71-43 20:35:00 Test Item Value Reference Range Interpretation Comments INR (test code = INR) 0.96 1 0.85-1.17 [facility] BVOA2558-55-75 15:21:00Surgical Pathology Report Case: [id number] Authorizing Provider: Ruma Ndiaye MD Collected: 02/24/2017 1559 Ordering Location: [facility] Received: 02/25/2017 0810 Pathologist: Kenji [...] SERRATED POLYP/ADENOMA Signing Pathologist Direct Phone Line: [phone] signed by Kenji Hercules MD on 02/26/2017 at 3:21 [id number] x 3Diarrhea, rule out microscopic colitisA. Right/ascending [...] mg/dL 70-110 H TESTED AT [place] [address] ([facility]) (test code = [facility] 1538) [address] POCT-GLUCOSE TKWVX3487-23-08 14:21:00 Test Item Value Reference Range Interpretation Comments POC-GLUCOSE METER 118 mg/dL 70-110 H TESTED AT [place] [address] ([facility]) (test code = [place] [address]1678) [address] BEDSIDE GLUCOSE NLXHPWN3143-59-38 21:51:35610.0[facility] CFOYWRM6870-35-96 16:52:64321.0[facility]annB[facility] GL[facility] RSHYGWB5371-01-24 12:45:38708.0[facility] WhiygpyJSFGURNOK8508-40-54 10:30:003.3[facility] TGUCAHRRM7367-93-29 10:30:005.4[facility] VuwgcgyWINWMSZMO1421-03-56 10:30:002.1 [facility] ExwfyjtGMCDDEEPT1594-10-90 10:30:75104.0[facility] HermannCHEMISTRY 2011-03-25 10:30:41018.0[facility] LktugqwAIWNSKGSW6641-51-73 10:30:00 Test Item Value Reference Range Interpretation Comments A/G Ratio (test code = A/G Ratio) 0.6 1 0.7-1.6 L [facility] IenhheuZTQETIWFN0644-25-80 10:30:83307.0[facility] HermannCHEMISTRY 2011-03-25 10:30:000.2[facility] DjtysjbCTCJGJNSO0196-47-56 10:30:000.3[facility] PhesbgdDWETEGYCA9845-67-86 10:30:000.1[facility] MbioaniBITMNQGHE7246-15-68 10:30:002.4[facility] WotsimdBMJBYMPAD3431-89-25 10:30:004.1[facility] UBQTUJLLH0271-89-33 10:30:47477.0[facility] IeschzbNPLGDTRCG0608-08-76 10:30:00 140.0[facility] IywgqizBZPOOHSYN0573-33-09 10:30:008.0[facility] HermannCHEMISTRY 2011-03-25 10:30:0019.0[facility] XiqacsqZJLYEBLAK5638-86-28 10:30:56613.0[facility] LofnymdZENVWBTHX8746-19-06 10:30:0021.0[facility] BeqgruyAGUILWOTB9868-61-20 10:30:001.7[facility] MuopfheRXTYMLKOL6986-44-67 10:30:0018.1[facility] IUPCWSKUKZ4892-94-02 10:30:000.9[facility] EhnvfpiRNQAOYQRIB6995-68-62 10:30:000.1 [facility] YebabqsAWQVIECCBJ5320-68-88 10:30:0016.0[facility] HermannHEMATOLOGY 2011-03-25 10:30:009.1[facility] PuzmozvTWLHWITKPZ8088-59-86 10:30:001.5[facility] CvagasqYKRWEETCBI6806-37-46 10:30:004.3[facility] SkmqqjoJPYJLYRRRT1908-72-41 10:30:003.2[facility] LeirnruYMWEGAEFFP8490-01-37 10:30:001.6[facility] [place] ZUCCLILBOK4581-16-96 10:30:0031.4[facility] UjzuaesHBNNATFDGE6835-48-63 10:30:00 42.0[facility] NycrnsoUSLMRGXJZE7313-76-55 10:30:0015.0[facility] HermannHEMATOLOGY 2011-03-25 10:30:0033.9[facility] SijdznfTNFLKZIGJS2387-70-58 10:30:00 Test Item Value Reference Range Interpretation Comments MCH (test code = MCH) 31.0 pg 27.0-31.0 N [facility] FwnnohuEKCBEWICCG0131-75-32 10:30:0091.4[facility] HermannHEMATOLOGY 2011-03-25 10:30:0036.8[facility] IxylausOIAWEEJEAD0317-57-34 10:30:0012.5[facility] QzgriglAXUUWPUNRT1335-09-96 10:30:0010.0[facility] JloqgldGMXLCEQOJM9520-65-62 10:30:69361.0[facility] RcilldeIJDQKXZPNG0921-24-10 10:30:004.03[facility] OJEQOYITIA4229-43-46 10:30:0010.1[facility] JhaqjhtZAKOOVDJN1780-96-36 13:51:00 Test Item Value Reference Range Interpretation Comments A/G Ratio (test code = A/G Ratio) 0.7 1 0.7-1.6 N [facility] DvqhxqlAUAUEZYTW1680-09-50 13:51:000.2[facility] HermannCHEMISTRY 2011-03-24 13:51:003.2[facility] DrjrirlOTISMIDIK2877-07-55 13:51:005.6[facility] MlxriueJNSFINUBB4117-78-77 13:51:002.4[facility] UinquxeZBNMGWGVX5484-53-49 13:51:000.2[facility] XxeuicjHCWUZFWXQ8198-05-11 13:51:08906.0[facility] [place] GXUPZFRSW5266-19-93 13:51:11828.0[facility] QsmybndVTGVLFLWH3406-35-28 13:51:000.4 [facility] OlbwnutYNRJJAOXS3254-60-94 13:51:47824.0[facility] HermannCHEMISTRY 2011-03-24 10:08:001.6[facility] VnosbpbBQNJHRUTD3438-37-71 10:08:0015.6[facility] JlihfozXEHLGHSJE6680-38-26 10:08:0021.0[facility] QsfdzjvWMBZGSBNL2234-61-48 10:08:003.6[facility] YpkgmhjTVYBRCMAU5062-89-08 10:08:61665.0[facility] [place] MWZIFPMVQ9476-36-87 10:08:007.7[facility] IqwxfrkPGXKMIFYR2699-45-82 10:08:02781.0 [facility] YcaxjpmEMZCKEEHQ2838-31-70 10:08:0023.0[facility] HermannCHEMISTRY 2011-03-24 10:08:001.7[facility] BqhgucgGVACUVXDI1772-88-87 10:08:77145.0[facility] KsnhoaeZFSOIJBHEA0241-92-07 10:08:00 Test Item Value Reference Range Interpretation Comments PT (test code = PT) 14.8 s 12.0-14.7 H [facility] PiulquaNYZGJSZNNR8967-09-07 10:08:00 Test Item Value Reference Range Interpretation Comments INR (test code = INR) 1.16 1 0.85-1.17 N [facility] YwshyahXXSCKKWMPI0266-00-38 10:08:00 Test Item Value Reference Range Interpretation Comments PTT (test code = PTT) 34.9 s 22.9-35.8 N [facility] XbltgsvCTHPOJPLSA6671-48-98 10:08:000.1[facility] HermannHEMATOLOGY 2011-03-24 10:08:004.1[facility] LfjqannOQLBEGAWSO7206-22-42 10:08:002.8[facility] NuaxwckGDUPFESMAK3372-72-56 10:08:000.8[facility] UapotbgBOGUUCJTOZ9788-73-60 10:08:001.8[facility] EgluwgxOVOCINGOZY0133-81-27 10:08:0028.5[facility] [place] VUPFUUYTUD2348-94-40 10:08:008.6[facility] FubbaxhOBVKBBFEJU3668-90-97 10:08:00 19.0[facility] XagchnzOUFHIOEZIO3503-43-43 10:08:001.3[facility] HermannHEMATOLOGY 2011-03-24 10:08:0042.6[facility] XbfzyarBDLQTIWCYI8111-24-93 10:08:009.7[facility] OzsndcrYFXVPKJBYS5291-31-23 10:08:003.67[facility] OtbvcriAMOQWJNZXQ6564-66-76 10:08:0034.9[facility] VxtvkrkBYLCDTNSWB4426-33-33 10:08:0015.1[facility] [place] EBQKTEASQT2769-98-63 10:08:34658.0[facility] TgdjlkzJXQPUFBMCS3815-63-43 10:08:00 90.5[facility] AllgodnUOOGQWEZBB8327-66-48 10:08:00 Test Item Value Reference Range Interpretation Comments MCH (test code = MCH) 31.6 pg 27.0-31.0 H [facility] GekdfqjZLMCZNLSSB8400-30-86 10:08:009.5[facility] HermannHEMATOLOGY 2011-03-24 10:08:0011.6[facility] VjlxdloKEWHUDCHVP7015-55-26 10:08:0033.2[facility] ZadyakwEWLFFOGXMG2929-33-99 10:08:00Negative *NA*(03/24/2011 05:08:00) ?? [facility] SbqmwezLPQDGJRXN8178-86-71 10:24:0036.0[facility] HermannCHEMISTRY 2011-03-23 10:24:71167.0[facility] LlyrrjhJNECIJWKS1868-90-82 10:24:0097.0[facility] HjzpoioWSBQGQSOW2713-15-49 10:24:0022.0[facility] RjaxbeyEVSPANLDY2692-92-09 10:24:001.5[facility] IrgxajiDAOHDBMGE5808-20-58 10:24:0020.0[facility] QKMSFNUQV9069-97-08 10:24:20790.0[facility] PcbhwcwCFHKLXPMM6852-69-43 10:24:007.8 [facility] UwvsjukJDAZBTHQA2651-65-78 10:24:68344.0[facility] HermannCHEMISTRY 2011-03-23 10:24:004.7[facility] BrnhodiIXMDPBZKR4446-70-47 10:24:0019.2[facility] RzgipsqKCGNPWXYU5817-97-37 10:24:002.8[facility] VaxdsecKQHPSQEZF0805-89-59 10:24:001.9[facility] AdfpozbUABEMUKND1286-27-95 10:24:62987.0[facility] CFEVHCINT2195-49-11 10:24:00 Test Item Value Reference Range Interpretation Comments A/G Ratio (test code = A/G Ratio) 0.7 1 0.7-1.6 N [facility] AftmrpoKVGQRKTNC5183-43-20 10:24:00 Test Item Value Reference Range Interpretation Comments B/C Ratio (test code = B/C Ratio) 15.0 1 6-25 N [facility] QqrgotxYXXTXGIJI1929-35-58 10:24:001.0[facility] HermannCHEMISTRY 2011-03-23 10:24:73134.0[facility] GahcreoNKWJSTSGI9360-72-44 10:24:58534.0 [facility] YsaziesMGDRAYCEQ3830-24-73 10:24:003.2[facility] HermannHEMATOLOGY 2011-03-23 10:24:0014.8[facility] XagmhqeNVTIBQMPVA5601-14-13 10:24:009.8[facility] AmbbcpqYBUGZMVLRN2176-34-95 10:24:94056.0[facility] CvqoyjxCBCWWKFNDO6818-96-98 10:24:00 Test Item Value Reference Range Interpretation Comments MCH (test code = MCH) 31.0 pg 27.0-31.0 N [facility] WvudyfnHCKEAMLHFK0504-81-51 10:24:0034.1[facility] HermannHEMATOLOGY 2011-03-23 10:24:0032.7[facility] KtnxmhcXLOJLKUEMJ6412-62-90 10:24:0091.0[facility] CocgublKWIWAOZXQV9162-50-38 10:24:0011.2[facility] EdjoptdVYKPPZPLFC6386-31-05 10:24:006.7[facility] EidqlgeJPRPQBTJXZ5650-68-40 10:24:003.6[facility] [place] OJURONXUWX9537-93-74 10:24:00Slight *ABN*(03/23/2011 05:24:00) ??[facility] WiqfpyxUQRZABXXBE5606-93-97 10:24:002.1[facility] VemlxuoNSRTABRZND4313-54-61 10:24:002.7[facility] RwkrpszWBWIKJFBFA2269-78-42 10:24:000.9[facility] CBHZVXJSTX6737-58-98 10:24:00Normal (03/23/2011 05:24:00) ??[facility] [place] ESJBTRWPOJ1516-97-61 10:24:0015.0[facility] DxdzhlbGVLPGLRRAU3593-92-53 10:24:00 0.0[facility] QizujmtCOVGAWAUZK6431-21-71 10:24:001.0[facility] HermannHEMATOLOGY 2011-03-23 10:24:001.0[facility] VspfaunSAXCNCKETF6625-43-26 10:24:001.0[facility] WkllumpBFJTHPTRWV9760-14-40 10:24:0031.0[facility] WzvjwxgQMTZOAUXUG6872-47-98 10:24:0013.0[facility] PtsilulMLKYLHPPGL0685-19-82 10:24:0039.0[facility] UYOFWFSUNK7247-84-22 10:24:000.1[facility] FshjgypBCATBCPPGC3480-57-56 10:24:00 10.0[facility] EuefbhiVKPHSFSLTF3068-92-19 22:20:00??[facility] HermannURINALYSIS 2011-03-22 22:20:003.0[facility] EcnxjpoCZEINEHKXF9359-70-64 22:20:00Occasional /HPF *NA*(03/22/2011 17:20:00) ??[facility] KzbimraTMAXZTWQJN4413-20-18 22:20:00 Few /LPF *NA*(03/22/2011 17:20:00) ??[facility] CwyrsnkCIEPJAIPIC0321-08-29 22:20:00Few /LPF *NA*(03/22/2011 17:20:00) [facility] 2011-03-22 22:20:00<1.0[facility] JdkklywERQBGZGXJQ4655-76-07 22:20:00Negative (03/22/2011 17:20:00) ??[facility] CenterSxybrsrDVWKOUUBJQ1348-49-98 22:20:00Negative (03/22/2011 17:20:00) ??[facility] CenterJnhofbzRWSEXOYZLI4057-84-18 22:20:83869 mg/dL *ABN*(03/22/2011 17:20:00) ??[facility] CenterZzsootbMYCMGWVVXL1519-71-79 22:20:0010 mg/dL *ABN*(03/22/2011 17:20:00) ??[facility] CenterZxpwsifQIUOGZZFEY4797-42-91 22:20:00 Negative *NA*(03/22/2011 17:20:00) ??[facility] CenterYqnnwvqITZHELZVKS5672-85-71 22:20:00Moderate *ABN*(03/22/2011 17:20:00) ??[facility]UR[facility]IS 2011-03-22 22:20:00Negative mg/dL *NA*(03/22/2011 17:20:00) ??[facility] SGJIWXMLVF2230-58-65 22:20:00 Test Item Value Reference Range Interpretation Comments UA Spec Grav (test code = UA Spec 1.016 1 N Grav) [facility] CenterKjkyybrIYYATVHUMD2223-53-06 22:20:00 Test Item Value Reference Range Interpretation Comments UA pH (test code = UA pH) 5.5 1 5.0-8.0 N [facility] CenterJjyjtawRQOJARODOB7013-51-06 22:20:00Yellow *NA*(03/22/2011 17:20:00) ?? [facility] CenterNwawenfIQYGLYUPZF3822-19-61 22:20:00Slight *ABN*(03/22/2011 17:20:00) ??[facility] BnvucffJIIMGVWLU1133-67-27 14:40:000.2[facility] HermannCHEMISTRY 2011-03-22 14:40:000.1[facility] ZepslwlDBFTMNTDYT4762-97-30 14:40:00Negative *NA*(03/22/2011 09:40:00) ??[facility] XzypiajOBKIIPALLL7200-22-62 14:40:00 Negative *NA*(03/22/2011 09:40:00) ??[facility] EudcajdHYWFIPJUQL2938-10-76 14:40:00Negative *NA*(03/22/2011 09:40:00) ??[facility] HermannIMMUNOLOGY 2011-03-22 14:40:00See Note 9(03/22/2011 09:40:00) ??[facility]annCHEMISTRY 2011-03-22 12:05:001.67[facility] HjtcwduJCPVEKGRW3772-09-12 12:05:000.044[facility] HermannBEDSIDE GLUCOSE TTEMDYP1766-85-78 17:19:47003.0[facility] HermannBEDSIDE GLUCOSE BDNZXZX5586-80-76 12:36:36037.0[facility] FaazlzsHSBMYSVQI2830-39-84 08:07:0018.5[facility] BgvkuvmPAWIKXHDT9439-50-56 08:07:003.5[facility] RSTJGBQIF6209-52-89 08:07:0021.0[facility] RsfetlqGPXZAJTVM8702-14-58 08:07:00 147.0[facility] LogposwWWCZVWQGD7081-57-36 08:07:001.4[facility] HermannCHEMISTRY 2011-03-15 08:07:35511.0[facility] KhesshrDAQHPQCMP8338-86-73 08:07:008.1[facility] PchbtblDFLARLXBL5537-86-37 08:07:0097.0[facility] ZucxkteCGOHIIFUW4427-33-03 08:07:0021.0[facility] JafsajlGNLTCERKC4068-42-23 08:07:001.7[facility] [place] EIKDUMZTEB6380-48-10 08:07:0016.7[facility] NtruttkPWRENTZLPA3330-60-34 08:07:00 12.4[facility] BzddzraQUSWJLLIWK7345-51-56 08:07:0063.3[facility] HermannHEMATOLOGY 2011-03-15 08:07:000.6[facility] FfwftudJGHQODHYNL7026-64-47 08:07:001.1[facility] AweuqydDNIFYVMSRL6203-97-82 08:07:000.1[facility] CsukxbkBIFXMERPCV2397-50-02 08:07:001.5[facility] MoklfpySJMQTMMKFK2742-25-51 08:07:005.8[facility] TSDHPXGFDX0360-86-12 08:07:001.3[facility] BagkaawMELPYZEZYT7122-23-53 08:07:006.3 [facility] GsfwevwQZBNPGINYX4954-97-16 08:07:00 Test Item Value Reference Range Interpretation Comments MCH (test code = MCH) 31.6 pg 27.0-31.0 H [facility] DqkqvafEJKHVROLYO9713-38-06 08:07:003.56[facility] HermannHEMATOLOGY 2011-03-15 08:07:0090.7[facility] QhapfmvUAEUNLGBPU6300-73-21 08:07:0032.3[facility] RnnaujnBQQAZAANNM9868-09-53 08:07:0011.3[facility] GzbsjirRMVAINQBCI7287-54-78 08:07:009.1[facility] CvfomydODGOEVSYZR8256-09-44 08:07:0010.1[facility] [place] UXGBCMQYCC9897-35-88 08:07:92263.0[facility] LcpqwraLGXGWTHZRL8161-38-87 08:07:00 14.7[facility] WexxpfuGIBFVNXEYB9715-41-55 08:07:0034.8[facility] HermannBEDSIDE GLUCOSE GPFVBGF6223-02-29 02:08:53687.0[facility] IwlghhiJYVFWONUY5245-18-98 14:30:002.0[facility] HlwodrpIJQAPPTSH5673-39-10 07:41:000.042[facility] [place] PDWDBFMHI1573-84-15 07:41:0031.0[facility] FazzsiuKKNRJGTYT6223-26-01 07:01:001.6 [facility] KeutjdsBYZTXSYCCM6028-12-34 07:01:00 Test Item Value Reference Range Interpretation Comments INR (test code = INR) 1.15 1 0.85-1.17 N [facility] EkdclsdGITTCFGACW5981-52-75 07:01:00 Test Item Value Reference Range Interpretation Comments PT (test code = PT) 14.7 s 12.0-14.7 N [facility] HdzacdaZFPZSUKEDW5851-74-30 07:01:00 Test Item Value Reference Range Interpretation Comments PTT (test code = PTT) 30.3 s 22.9-35.8 N [facility] BpurdevUGQKWKBOK5644-40-05 06:50:0049.0[facility] HermannCHEMISTRY 2011-03-14 06:50:0023.0[facility] WjhtonyHMDACKZPG2392-44-07 06:50:004.3[facility] ZmgiofbGJYPFSCRS9647-80-62 06:50:00 Test Item Value Reference Range Interpretation Comments A/G Ratio (test code = A/G Ratio) 0.8 1 0.7-1.6 N [facility] AcqonozQUJANFWMS3553-43-84 06:50:003.4[facility] HermannCHEMISTRY 2011-03-14 06:50:0033.0[facility] SdpwfvcERMSLYNSJ6521-62-57 06:50:0027.0[facility] RmoglyrAHGILQMVV6129-41-75 06:50:000.4[facility] HbnekslHMUCHZJSC1032-41-06 06:50:006.2[facility] WbhmaedSCQNIYUYY6365-46-37 06:50:73662.0[facility] [place] IDBYHPLIB3958-63-97 06:50:002.8[facility] IputcliKERFTEDKS8584-58-70 06:50:00 Test Item Value Reference Range Interpretation Comments B/C Ratio (test code = B/C Ratio) 14.0 1 6-25 N [facility] JuhubbuHODMBKFVQ5647-49-82 06:50:008.4[facility] HermannCHEMISTRY 2011-03-14 06:50:0021.8[facility] VjlmvwgEXEONBJDJ4563-57-36 06:50:0019.0[facility] CneapfkQVWKQLNFC3851-48-15 06:50:30560.0[facility] EepaibfMWXTGMAYE1277-81-98 06:50:76164.0[facility] HqtqnorDFCJZXDDD9376-92-79 06:50:003.8[facility] OGDCEXBXD5845-65-14 06:50:0020.0[facility] FnmepztTNKYLQPIX8612-41-72 06:50:001.4 [facility] EjwbthaHTRHWAPOJ4159-32-23 06:50:0091.0[facility] HermannCHEMISTRY 2011-03-14 06:50:001.2[facility] TcctdshDFCBGOPPHF4945-72-64 06:50:0010.3[facility] VqmsmbhDYLRGLKHVG2440-43-62 06:50:006.2[facility] AtnvvwpOHCMDMYHDN9292-68-89 06:50:0061.3[facility] GiagnqrVDXZCBTKEM1807-01-93 06:50:0022.2[facility] KJAPJDDDJG8228-37-76 06:50:000.0[facility] GfoumnzJJUMPKSWQA1277-16-72 06:50:001.2 [facility] CucwdxpSCVPXEJAUS7953-79-98 06:50:007.3[facility] HermannHEMATOLOGY 2011-03-14 06:50:000.0[facility] RjoknxjAWXHRBFUIA6376-25-38 06:50:000.7[facility] IwllcciEHCTYKCDIE3798-00-17 06:50:002.6[facility] DphtzesDSCDBFBKDJ4525-28-45 06:50:00Slight 52*ABN*(03/14/2011 01:50:00) ??[facility]annHEMATOLOGY 2011-03-14 06:50:00Slight 51*ABN*(03/14/2011 01:50:00) ??[facility] JMDSCVUUMZ1938-41-73 06:50:001+ 49*ABN*(03/14/2011 01:50:00) ??[facility] [place] HPCQBMJYCZ4588-83-86 06:50:00Slight 50(03/14/2011 01:50:00) ??[facility] XSBROCPKJW5114-84-90 06:50:0013.3[facility] OirqxmdULATAZDRMN4098-93-75 06:50:00 11.8[facility] VpoqsflBXIDRUFWZU5679-74-27 06:50:004.18[facility] HermannHEMATOLOGY 2011-03-14 06:50:0090.6[facility] ZtnnsixWLIZPEZYWD8408-56-49 06:50:00 Test Item Value Reference Range Interpretation Comments MCH (test code = MCH) 31.8 pg 27.0-31.0 H [facility] HpsdfviPRWLLROLET1801-08-31 06:50:0037.9[facility] HermannHEMATOLOGY 2011-03-14 06:50:0010.0[facility] MetsecgXGLQDHQURB0738-42-64 06:50:0013.5[facility] AlzankqITIAWMMAFY6666-92-55 06:50:08016.0[facility] FeqntxzNLIEMMHVYC3395-38-25 06:50:0035.1[facility] SgfhxtxXDTLHXDMG3035-17-13 06:50:0027.0[facility] UDROZRHVC4936-81-31 06:50:003.2[facility] QvdqxnpHBEMCNKMQ6819-67-30 06:50:002.9 [facility] CoipyvgZOKTIUMXX2378-75-23 06:50:0032.0[facility] HermannCHEMISTRY 2011-03-13 06:50:006.1[facility] KjvdqesKXFTGRVJK9230-05-46 06:50:00 Test Item Value Reference Range Interpretation Comments A/G Ratio (test code = A/G Ratio) 0.9 1 0.7-1.6 N [facility] XfqwtafGLOTWYXPT0215-18-58 06:50:000.3[facility] HermannCHEMISTRY 2011-03-13 06:50:000.4[facility] PshrsbwSRBTMUWGY8045-71-63 06:50:000.1[facility] FiqyaziTLGJZSZBF9928-86-26 06:50:15399.0[facility] HermannBEDSIDE GLUCOSE TESTING 2011-03-07 16:38:97671.0[facility] HermannBEDSIDE GLUCOSE MVMVWNK9132-32-01 10:32:92884.0[facility] HermannBEDSIDE GLUCOSE BNVMNFP7846-27-95 02:38:55869.0 [facility] YvlqqltRUZSPFVHZ6599-48-47 07:36:00>60.0[facility] HermannCHEMISTRY 2011-03-05 07:36:37498.0[facility] QwhxszoUAWTTTTZT3176-68-02 07:36:74631.0 [facility] LiicpopLVNJKQZJP7776-01-10 07:36:003.8[facility]annCHEMISTRY 2011-03-05 07:36:008.4[facility] KdocxmuACYVKTQPJ4583-57-13 07:36:0015.8[facility] OsdtjueFKWOCBWYR2837-65-56 07:36:0025.0[facility] KfjrsutYTNKQOBNQ0856-32-47 07:36:0016.0[facility] ZicotqaOYJVVYQEC9994-75-29 07:36:000.9[facility] FLOKZXZEJ9654-82-39 07:36:0077.0[facility] HonttllJHMUMSXZOH2733-65-81 07:36:00 45.6[facility] BhecmbfGGRRHHFXPJ7673-76-35 07:36:0010.4[facility]annHEMATOLOGY 2011-03-05 07:36:003.5[facility] BwwxmkcITTXTBNREM6780-27-27 07:36:0038.5[facility] EvfnmzaTMZAHHTAOB8665-43-36 07:36:000.4[facility] SlhansxMUVKUWDKHR4164-11-30 07:36:000.2[facility] KvnjxxcFBBMPBZCZM7506-46-78 07:36:002.0[facility] BYBCHXSHAU2475-31-67 07:36:005.8[facility] TdnpjnePUIBNXEGSQ2601-45-89 07:36:004.9 [facility] SwoedmbRBJZSZIILR6800-35-93 07:36:001.3[facility]annHEMATOLOGY 2011-03-05 07:36:009.9[facility] OumrdjbNHEWKMIIRK0008-60-18 07:36:0092.6[facility] IiprgwgGFYEKCHPFT6523-32-75 07:36:003.08[facility] AovgciyKAKTEDTSWT5969-20-19 07:36:0012.7[facility] MqarjjzYOPPJHHBQF1623-60-25 07:36:00 Test Item Value Reference Range Interpretation Comments MCH (test code = MCH) 32.0 pg 27.0-31.0 H [facility] BrzhksjFZYVYUSGAL1283-14-45 07:36:0028.5[facility]annHEMATOLOGY 2011-03-05 07:36:0034.6[facility] CnqpsyxZDPDDRQHKY1475-61-39 07:36:58125.0 [facility] AujbygnABANZTIVNE0430-10-44 07:36:0016.5[facility]annHEMATOLOGY 2011-03-05 07:36:009.1[facility] JrazpayPZFBUOFDFM1985-32-02 10:21:74291.0[facility] LlicchbQKQKAUYDUZ2295-51-25 10:21:0016.4[facility] ZoonhaoTEIWPWHTFW3502-62-78 10:21:0033.6[facility] VkzdashRAPTDUCOHZ0961-33-58 10:21:00 Test Item Value Reference Range Interpretation Comments MCH (test code = MCH) 31.8 pg 27.0-31.0 H [facility] IbyzssvEIELJBKWYS3265-54-02 10:21:0012.4[facility]annHEMATOLOGY 2011-03-03 10:21:009.4[facility] ZagevbpESSACZZSET8502-41-98 10:21:0094.6[facility] YulouxrYTEPDSYJSV7953-21-03 10:21:0030.8[facility] YfzsvbeBARNDKVWNE3975-29-24 10:21:0010.4[facility] JpyjgwkXUMORWBBDS6138-75-12 10:21:003.25[facility] HFXGLTBYMR6907-27-29 10:03:0016.0[facility] AfmfhwmQSQNEJLEHJ0119-42-76 10:03:00 9.1[facility] TiojmrwJNCPOUIMDH3112-22-16 10:03:62609.0[facility]annHEMATOLOGY 2011-03-02 10:03:003.23[facility] RenfvvzXTFXMQXSGH8207-37-53 10:03:0094.5[facility] DvtybzoOIDRMOKIYT5192-38-87 10:03:0030.5[facility] WfqgovcNBVPWUFCIB8079-71-05 10:03:0010.3[facility] QanryhxJLVSYWZBMT3792-06-43 10:03:0033.6[facility] UEMJDTIWNA5441-40-20 10:03:0012.7[facility] GopljkySKEEOXMSME1997-19-59 10:03:00 Test Item Value Reference Range Interpretation Comments MCH (test code = MCH) 31.8 pg 27.0-31.0 H [facility] XegskfdQUNQXIPHVM7036-40-41 20:38:00??[facility]annURINALYS[facility] 2011-03-01 20:38:00Clear (03/01/2011 15:38:00) ??[facility]annUR[facility]ALYSIS 2011-03-01 20:38:00 Test Item Value Reference Range Interpretation Comments UA Spec Grav (test code = UA Spec 1.009 1 N Grav) [facility] QixwhwxIKECZGFRMA1666-76-90 20:38:00Yellow *NA*(03/01/2011 15:38:00) ?? [facility] HwbkqehZXWJZYQRIF8168-52-02 20:38:00 Test Item Value Reference Range Interpretation Comments UA pH (test code = UA pH) 5.5 1 5.0-8.0 N [facility] LeanxjbZJNIHHAXAP8292-21-03 20:38:00Negative mg/dL *NA*(03/01/2011 15:38:00) ??[facility] OdqroxbFLJIYLOIXI0394-74-76 20:38:00Negative mg/dL *NA*(03/01/2011 15:38:00) ??[facility] BepemezURYITYDARV4949-48-40 20:38:00 Negative *NA*(03/01/2011 15:38:00) ??[facility] OefygzeRQZICHHGMP0089-65-16 20:38:00Negative (03/01/2011 15:38:00) ??[facility] AcbqdgpWZMDLDMOIW4282-97-84 20:38:00<1.0[facility] UilmyfpJTFZTGTZNI1956-10-40 20:38:00Negative (03/01/2011 15:38:00) ??[facility] EgqdeuqYAYYOJPORV4435-84-64 20:38:00Negative (03/01/2011 15:38:00) ??[facility] DtqcqgbYSRUUYCOZD1582-40-28 20:38:00Few /LPF *NA*(03/01/2011 15:38:00) ??[facility] JhesdvxWMODLFDUMX5750-75-51 20:38:00 Moderate /LPF *ABN*(03/01/2011 15:38:00) ??[facility] SoqxeyvHHDVOOPCYA2546-77-54 20:38:001.0[facility] HbwburmKFMYZZDXQX1548-28-36 20:38:0010 mg/dL *ABN*(03/01/2011 15:38:00) ??[facility] HsdnizvSSIODWXAHE1845-79-97 08:19:005.7 [facility] NzsvsqeAKDHAILAOY5310-58-30 08:19:004.8[facility]annHEMATOLOGY 2011-02-28 08:19:001.0[facility] TisxqknAFMVBUCBGN0323-05-31 08:19:008.9[facility] WjnbmyfLLXEYAXEUD9305-94-87 08:19:002.8[facility] XwpoixwVHWDVLOWGA7020-48-97 08:19:0047.3[facility] FszttwaVAMITTVYMY8955-49-06 08:19:0040.0[facility] NTNNFCVDAO7483-11-14 08:19:000.1[facility] NxrdshbWVQMWVCUSV4994-41-60 08:19:001.1 [facility] PitmlnpGWTFIKDMZN2559-11-72 08:19:000.3[facility]annCHEMISTRY 2011-02-27 08:43:002.8[facility] FjbpfgzJFVRWPWOM0136-73-88 08:43:00 Test Item Value Reference Range Interpretation Comments B/C Ratio (test code = B/C Ratio) 14.0 1 6-25 N [facility] HnbcpmdVFVWQWHEG2957-21-22 08:43:0013.8[facility]annCHEMISTRY 2011-02-27 08:43:00 Test Item Value Reference Range Interpretation Comments A/G Ratio (test code = A/G Ratio) 0.8 1 0.7-1.6 N [facility] SgwrgeaDAHQPTOQK4925-17-71 08:43:005.0[facility]annCHEMISTRY 2011-02-27 08:43:008.4[facility] CzfobueOCKZMOMJS0583-13-97 08:43:0024.0[facility] IyzrrzeEPYFDGVJM6326-63-74 08:43:002.2[facility] NyzgmxvGCNZREYDR1990-58-81 08:43:000.3[facility] FxeojolTJNVOVVYD0031-84-67 08:43:0021.0[facility] DQFJMUTSY0151-50-94 08:43:0098.0[facility] DrwvnviIDXUTUWBW8017-76-82 08:43:0028.0 [facility] MfbemlaGFUSENOSP3280-76-11 08:43:0010.0[facility]annCHEMISTRY 2011-02-27 08:43:003.8[facility] PekxtalJIWEKQOGF6614-66-21 08:43:08559.0[facility] EdryymfHDQYMPTAC0418-47-04 08:43:000.7[facility] FrvatzqEEHTHMWBJ3996-43-89 08:43:60312.0[facility] EzwtolkCPKUSUTAP9330-20-37 08:43:35401.0[facility] EYAVXUDFBI1736-44-31 08:43:000.9[facility] GycbqzvYZEMVFQDWD7633-67-20 08:43:000.3 [facility] IrkkcxbBNZKRLQTLR4650-13-48 08:43:003.3[facility]annHEMATOLOGY 2011-02-27 08:43:000.1[facility] RxrlbhoQPVYBBKYEE2960-96-83 08:43:001.2[facility] GfeehtyTBOBAGWQIE0992-47-80 08:43:006.0[facility] OyxocclOSOMIVJKTE9461-34-38 08:43:008.3[facility] CxrrmvcQZELBITJUM8001-06-09 08:43:003.1[facility] HICFAMWSSR7108-55-59 08:43:0056.6[facility] WilsnqpZPTGRGBQPN1771-88-54 08:43:00 30.8[facility] [facility] GLUCOSE SKYLPFD8363-05-35 22:17:61943.0[facility] NZXXABR7700-70-20 18:30:55756.0[facility] DNMCBAM0505-09-45 11:15:31398.0[facility] RpbaqodJHWRLBEPJ4553-36-55 06:52:0015.6[facility] UtijtflZCHOONDVE1388-77-37 06:52:0025.0[facility] DZYRNWTFF9680-72-99 06:52:007.9[facility] ReqzxnsXTVNSFTEH2638-60-39 06:52:02589.0 [facility] XpcrjnbNZLBHJFDW6277-85-72 06:52:003.6[facility]annCHEMISTRY 2011-02-26 06:52:000.5[facility] XvtznrxWZSRJWLSY0545-75-51 06:52:68516.0[facility] EvbklgwAXWJDKRYN0105-90-87 06:52:009.0[facility] LhaxftkBTCDOOJYC0461-30-70 06:52:37779.0[facility] MplvoivLRYXNYQKDK7600-09-30 06:52:0010.5[facility] JAFGHXGVLY1836-15-20 06:52:0031.2[facility] CzxnfkdKYEGBCPWY4901-67-08 08:43:001.9 [facility] JorqcjcRXOESHFDN4573-54-21 08:43:007.9[facility]annCHEMISTRY 2011-02-24 08:43:20322.0[facility] FrlyulwGOPBVPBMT0020-75-04 08:43:0024.0[facility] GkhbfwwPHACQHCQI9181-76-08 08:43:46537.0[facility] SakgopxCKBVEZREC5250-29-44 08:43:000.6[facility] MewnfhbYWXHHKLVS0642-19-57 08:43:0012.0[facility] PCPBMXYLP1224-98-28 08:43:0089.0[facility] DuzeukyLZFASXLSE1466-03-42 08:43:003.7 [facility] UwbiihtCHKPEQOKG4541-94-79 08:43:0015.7[facility]annHEMATOLOGY 2011-02-24 08:43:0030.7[facility] GhuhfzsDWBXQENECB3118-99-12 08:43:0010.3[facility] PwmyuedTPBUKZNXQC5134-70-59 08:43:79455.0[facility] EujgwlsNKFUBXMOL8306-80-05 07:22:001.7[facility] FjsxnqhVYEJBSIOY2108-16-59 07:22:004.64[facility] SQTJZRYJI4276-85-19 07:22:001.1[facility] RmiwptyRKQDDEEYE6206-70-97 07:22:001.16 [facility] WcmpgcyHHEPCULWT0610-02-30 07:22:004.4[facility]annCHEMISTRY 2011-02-21 07:22:0016.9[facility] DnwopolGNKXLWPPQ7864-67-94 07:22:006.0[facility] GuqdvhiBSNWCVACK7551-44-12 07:22:000.4[facility] EhwmbqcTEAERKGFT5536-42-35 07:22:42771.0[facility] UzydouzQREORQMYA2713-89-65 07:22:004.9[facility] ZRSRPDPYR1078-30-52 07:22:21726.0[facility] DeytxujUXAEROJFM6747-59-68 07:22:007.7 [facility] GawrizhGWBGFWDJD9920-10-84 07:22:85870.0[facility]annCHEMISTRY 2011-02-21 07:22:0019.0[facility] FhytqkyNPAHTVZQH4345-10-49 07:22:003.7[facility] WilgxvcESAOSPJPAB4203-35-70 07:22:000.6[facility] MozcagrSCXTYVQTUJ6242-01-94 07:22:000.9[facility] FxfhbmqZSTAENLFAJ8876-39-96 07:22:000.0[facility] RNRBJRFIKX5090-00-65 07:22:006.9[facility] CxowknpHSNRJUXBVR6895-70-39 07:22:009.6 [facility] FvzvrycWFAWAWCFBQ3972-57-27 07:22:005.2[facility]annHEMATOLOGY 2011-02-21 07:22:000.3[facility] CmencngUGJUFBRSPM9185-28-75 07:22:002.3[facility] YteefxgLRPIWADTKZ6147-34-98 07:22:0057.5[facility] FkakaubNNWGFUBPWS1607-91-17 07:22:0025.7[facility] BjpalvhUQEMRBJHNN7079-99-19 07:22:0034.1[facility] MLTUNIHQKI6026-45-86 07:22:53264.0[facility] FgaphydAEYBXTJSBQ9986-20-14 07:22:00 16.2[facility] XjkkimwZYQWLUARQO1341-16-69 07:22:007.8[facility]annHEMATOLOGY 2011-02-21 07:22:0032.4[facility] XnlttjrAXCKRVNJFG2040-06-10 07:22:0096.0[facility] HkkfjihVZKGJHVDQD0883-72-67 07:22:00 Test Item Value Reference Range Interpretation Comments MCH (test code = MCH) 32.7 pg 27.0-31.0 H [facility] YezitfhHZJVXSJMPP1257-61-20 07:22:003.38[facility]annHEMATOLOGY 2011-02-21 07:22:0011.0[facility] MkobdpaQVDUKJAERK2037-94-52 07:22:009.0[facility] NlkeqbiRUWRSEIHK6643-71-59 14:50:003.1[facility] QfbmtdmABQEIAZWJ7718-34-05 05:50:003.4[facility] RvionydEWZGQYQKG0737-95-61 05:50:005.08[facility] DYDUCMGWV5497-33-21 05:50:001.28[facility] NdpyltlADUTMCVBN3605-84-34 05:50:001.27 [facility] ZxcxrnwLKTSCEGPI1592-36-90 05:50:005.12[facility]annHEMATOLOGY 2011-02-20 05:50:0095.8[facility] DnlubeqOBTAQYTJJU3495-45-26 05:50:42232.0 [facility] EjblpzhYTHYXEERIR9735-01-61 05:50:007.8[facility]annHEMATOLOGY 2011-02-20 05:50:00 Test Item Value Reference Range Interpretation Comments MCH (test code = MCH) 32.2 pg 27.0-31.0 H [facility] XnzjioyUDIKAEBEDD3044-88-80 05:50:0033.7[facility]annHEMATOLOGY 2011-02-20 05:50:0016.5[facility] GutfdojRXLADPSALX0863-20-49 05:50:003.19[facility] SbotizoNWEQHKODSN6798-01-05 05:50:006.9[facility] SmejlyuCGPAXALZCL8331-75-67 05:50:000.4[facility] MdiltllFLCDHXPEEX5211-43-52 05:50:000.0[facility] NELUPVFQTK8282-61-00 05:50:000.6[facility] UvrnqyvZSRRAUALOW5131-87-96 05:50:00 63.4[facility] GiecxipHSCZMLSMAD2001-68-30 05:50:0020.5[facility]annHEMATOLOGY 2011-02-20 05:50:009.3[facility] SphyvuqJTDBUIRSKN1101-24-69 05:50:006.4[facility] InfcqxuLTNPEYDESJ6043-83-08 05:50:000.4[facility] QnbailoWDAVNGZEDI4344-31-30 05:50:004.4[facility] CwfcspzQGPNOSFWMQ0211-90-01 05:50:001.4[facility] OXYOEFAAB1291-08-68 21:20:001.02[facility] JmbcibjORMNWCESM9685-59-96 21:20:004.08 [facility] PnfzgpsVSKYKXTWH3972-75-12 21:20:004.12[facility]annCHEMISTRY 2011-02-19 21:20:001.03[facility] OlfaqhiUDBSZXRKQ3028-74-45 21:20:0066.0[facility] KwfjtwcWUSIPAUUP7966-99-01 21:20:000.8[facility] UvtmjtqSCMPPLREF1488-15-44 21:20:002.3[facility] CsujcylSWAVREYTF5810-33-23 21:20:004.8[facility] LTCJLVKTE7720-89-65 21:20:0067.0[facility] ZdvsrzlVZQDJWDHY1561-24-63 21:20:002.5 [facility] HkciiotCKEMUYCKB2159-06-14 21:20:00 Test Item Value Reference Range Interpretation Comments A/G Ratio (test code = A/G Ratio) 0.9 1 0.7-1.6 N [facility] MbrhqkoYLOEGQSNI9331-61-83 21:20:47090.0[facility]annCHEMISTRY 2011-02-19 21:20:00 Test Item Value Reference Range Interpretation Comments B/C Ratio (test code = B/C Ratio) 20.0 1 6-25 N [facility] UadbpsvLPUCQSSJHW1828-33-75 21:20:00 Test Item Value Reference Range Interpretation Comments PTT (test code = PTT) 29.4 s 22.9-35.8 N [facility]OyjztdxJHUXQZPILN0401-38-06 21:20:00 Test Item Value Reference Range Interpretation Comments PT (test code = PT) 13.9 s 12.0-14.7 N [facility] CenterXpczppoTVZSXLLDMG8301-70-12 21:20:00 Test Item Value Reference Range Interpretation Comments INR (test code = INR) 1.07 1 0.85-1.17 N [facility] CenterIjkjazfKOPPEZMAGE6568-55-89 21:20:003.4[facility]annHEMATOLOGY 2011-02-19 21:20:00 Test Item Value Reference Range Interpretation Comments MCH (test code = MCH) 32.2 pg 27.0-31.0 H [facility] JgtymltWGOOLVQTTR3794-99-49 21:20:0095.7[facility]annHEMATOLOGY 2011-02-19 21:20:0033.6[facility] JburxaqUSMRATUNYC1667-73-30 21:20:0016.7[facility] PhvepvnAJIJUSKTWO4345-99-87 21:20:007.8[facility] XwicjpsTZUCXKTTSH6624-64-07 21:20:37979.0[facility] CaztpnrRNOOVWJFHH8579-70-08 21:20:007.4[facility] ESSVJSKENR1160-51-88 21:20:008.7[facility] AnkqmhmSNUCCTMELQ9054-02-41 21:20:00 15.6[facility] VzjibybJARUCSJQRH7913-49-99 21:20:001.1[facility]annHEMATOLOGY 2011-02-19 21:20:000.6[facility] YxbnbyxDLBWXCNXBS0361-16-03 21:20:005.3[facility] JtqlamqAJDCKGCHAQ5892-93-40 21:20:005.1[facility] JaldivdGERWKOXFBF8230-55-60 21:20:000.6[facility] MxjttyrYMMXXBGZLW9308-44-27 21:20:0069.8[facility] HQVKEQWMQL4227-94-40 21:20:000.4[facility] TtcvpiaOHVXEUPSGR3768-59-16 21:20:000.0 [facility] HocxzdhMRJDXWDOJ2239-12-85 21:00:001.1[facility]annCHEMISTRY 2011-02-19 17:32:97611.0[facility] JrxjiowOGVZQWIXS0337-83-17 17:32:000.6[facility] BnqkstfFSKHFMNAO8029-07-43 17:32:001.08[facility] KrzchoxNFYGTIFFX3290-96-44 17:32:67047.0[facility] NszbpbhIILRRDHGR6172-36-14 17:32:0029.0[facility] ELYUVUIRX3036-92-64 17:32:003.3[facility] FevxdbdBLDKBAEYP9706-83-26 17:32:46150.0 [facility] ChlkszpJDVEAXGZH1441-09-23 17:32:0022.0[facility]annCHEMISTRY 2011-02-19 17:32:00-4.0[facility] JnfroomTMIJNKTSL0960-90-15 17:32:00 Test Item Value Reference Range Interpretation Comments POC A pH (test code = POC A pH) 7.33 1 7.35-7.45 L [facility] MedhffpCWEEQIPYE6657-76-05 17:32:0041.0[facility]annCHEMISTRY 2011-02-19 17:32:0037.0[facility] ZfbceegKBNYYASIC4232-68-23 17:32:43452.0[facility] HermannBODY TFANOA2703-84-35 16:00:0039.0[facility] HermannBODY ITBGFO0448-84-40 16:00:0070.0[facility] HermannBODY TODGMB2592-68-42 16:00:001.0[facility] BODY HPYLYV8574-74-71 16:00:00Light Red *ABN*(02/19/2011 11:00:00) ??[facility]annBODY ATMFCZ8706-38-10 16:00:00Slight *ABN*(02/19/2011 11:00:00) ?? [facility] YOYXAM7168-73-65 16:00:00Colorless (02/19/2011 11:00:00) ?? [facility]annB[facility] XQXDDK1097-47-83 16:00:147796.0[facility]annBODY FLUIDS 2011-02-19 16:00:00xxxxxxx (02/19/2011 11:00:00) ??[facility]annCHEMISTRY 2011-02-19 15:35:00031.0[facility] DagdyeuGDWIPBQAU0793-79-85 15:35:003.2[facility] NydddjxONUTBYMKY2612-40-40 15:35:001.1[facility] WznzlrcXASJTPUDS3334-72-79 15:35:000.7[facility] UjgiegeIPLRQWVAZ5619-15-46 15:35:00 Test Item Value Reference Range Interpretation Comments POC A pH (test code = POC A pH) 7.35 1 7.35-7.45 L [facility] UaxbirbHRFLIDVAJ5688-06-71 15:35:0037.0[facility]annCHEMISTRY 2011-02-19 15:35:00-3.0[facility] OdldxpqTJTJGBNQZ8333-98-23 15:35:0041.0[facility] GfecszzKHMLLHKHU4410-72-74 15:35:26315.0[facility] CknchulNRCEFVDQE8478-81-85 15:35:0023.0[facility] GosvyakDSHRSAQBI4872-16-89 15:35:53021.0[facility] BKBWTSACD9737-52-70 15:35:61691.0[facility] CojlaawOOGDXMXSA3145-99-71 15:35:00 29.0[facility]annBLOOD BANK LVXFNFF8523-35-81 15:33:00Negative (02/19/2011 10:33:00) ??[facility] FwypctlZQSXLVFUW4163-30-28 14:06:003.7[facility] ZBGQBNFFW4189-28-67 14:06:001.1[facility] YfxpiwdTASZJJWAF5090-85-72 14:06:95918.0 [facility] OdvfqqeLGSRGFBBF6578-17-60 14:06:001.0[facility]annCHEMISTRY 2011-02-19 14:06:61264.0[facility] FkathbpZZCPQXDZI9439-89-30 14:06:00 Test Item Value Reference Range Interpretation Comments POC A pH (test code = POC A pH) 7.43 1 7.35-7.45 N [facility] HehpjvnERFTAILFG4788-83-50 14:06:10298.0[facility]annCHEMISTRY 2011-02-19 14:06:00-1.0[facility] QejqxrgBHUZWOUYM0255-41-33 14:06:0023.0[facility] HpnnwzoBMASSQQZR9251-23-40 14:06:64907.0[facility] ZreevvsPQHOVZVBY5323-88-12 14:06:0034.0[facility] NakxefwBKMAMRBVJ9948-89-51 14:06:0037.0[facility] HCFMPYSPX3408-02-71 14:06:0034.0[facility] YilkmvgNVPHENMTU2186-70-50 11:00:0012.0 [facility] DdjvoadRJZAWTQKI2640-03-40 11:00:65234.0[facility]annCHEMISTRY 2011-02-19 11:00:0012.0[facility] QsmzsndKAYVWTYMJ6919-59-50 11:00:000.6[facility] CbsfyzdZURJUEGNK5617-13-35 11:00:0024.0[facility] MzuochuUCUIEQWNH3445-38-24 11:00:007.9[facility] SqcijhtMBWSDYEWU1384-17-17 11:00:004.0[facility] OUYDOZFJA3762-92-74 11:00:98317.0[facility] WybtbqyDYGISBQAT7353-46-46 11:00:00 99.0[facility] MphketdIPSSNZDZSK0901-96-42 11:00:002.4[facility]annHEMATOLOGY 2011-02-19 11:00:000.7[facility] DexzdemCHISIIEQNH4346-71-71 11:00:000.0[facility] NppgokoANJQECPJQQ5242-67-04 11:00:000.6[facility] XakxlkjJSWZYXUGJO9585-65-39 11:00:002.4[facility] ZqykefrEWXZIVBPBJ4609-26-66 11:00:0010.9[facility] WPZVLSDDHI1193-94-76 11:00:000.8[facility] DqsvlklJYAVRVEACW1849-25-56 11:00:009.4 [facility] PhrtmjpMXKPIDQPLV1799-53-63 11:00:0039.3[facility]annHEMATOLOGY 2011-02-19 11:00:0039.6[facility] AystkooZXYJWMBCPP0290-92-28 11:00:008.2[facility] GpdxxneQVMPWKBTEZ5866-57-64 11:00:62853.0[facility] EvlsrdmKDOLMRXDBI6645-86-34 11:00:00 Test Item Value Reference Range Interpretation Comments MCH (test code = MCH) 32.9 pg 27.0-31.0 H [facility] IgmoazkVXFEGXTUNB8436-44-46 11:00:0094.8[facility]annHEMATOLOGY 2011-02-19 11:00:0034.7[facility] GpkrvqsWQQFIZUEOG4465-18-35 11:00:0016.4[facility] MxniljzNYNHBSIYHY2013-94-23 11:00:0010.7[facility] JnqutjdLXXSEEQXAO8194-80-00 11:00:003.26[facility] NskbkwbYQVHCOAZID3446-84-33 11:00:0030.9[facility] ZKKXYEIMBQ2724-33-69 11:00:006.2[facility] ZpssnvtJNPTVIHDJP2906-69-71 11:00:00 Test Item Value Reference Range Interpretation Comments INR (test code = INR) 1.0 1 0.85-1.17 N [facility] CenterAcasfziZRCQYYHJEO9946-96-12 11:00:00 Test Item Value Reference Range Interpretation Comments PT (test code = PT) 13.2 s 12.0-14.7 N [facility] CenterPxotlyiGHPPDWQVFV3867-29-05 11:00:00 Test Item Value Reference Range Interpretation Comments PTT (test code = PTT) 30.3 s 22.9-35.8 N [facility] UMQXFKZ8503-56-73 10:22:96555.0[facility] BEDSIDE GLUCOSE KHLOSUR4178-54-22 02:28:59212.0[facility]annB[facility] SGQLEUX4744-74-00 00:46:64615.0[facility] XeljbxxGXFTJHKVXJ7195-91-73 08:39:0094.3 [facility] AbbfyheWBQBPHTEBK6624-76-11 08:39:0033.1[facility]annHEMATOLOGY 2011-02-18 08:39:0016.6[facility] HalttqzJSIQQEYEKN1712-19-70 08:39:00 Test Item Value Reference Range Interpretation Comments MCH (test code = MCH) 32.8 pg 27.0-31.0 H [facility] MtakwamTUBKKOJBDG5282-25-46 08:39:0034.7[facility]annHEMATOLOGY 2011-02-18 08:39:007.9[facility] CdkrytjJSMEGFVARO4214-90-64 08:39:76099.0[facility] NlxdploPGPLIBKYUQ7093-74-78 08:39:006.4[facility] HctnvmbPUYMAKIDFK8229-06-57 08:39:003.51[facility] InesjgoXGYTGDLFQE5629-23-78 08:39:0011.5[facility] EETGLEBVZM9914-23-03 07:48:008.1[facility] EgktksfRXYCAJCYXM6500-81-13 07:48:00 Test Item Value Reference Range Interpretation Comments MCH (test code = MCH) 32.7 pg 27.0-31.0 H [facility] NreraayZOSKQEDIXP8539-37-88 07:48:0095.1[facility]annHEMATOLOGY 2011-02-15 07:48:0034.3[facility] FqzqaikRBNKTNGFJY2398-35-54 07:48:56255.0 [facility] ToqxytoCDZEHIWDGE2340-73-15 07:48:0016.5[facility]annHEMATOLOGY 2011-02-15 07:48:0012.9[facility] BlxlzfvEESIBYLDIM1319-86-93 07:48:0034.1[facility] KisfcdaPGOVIKDCQM8790-04-63 07:48:0011.7[facility] IhggwbzMDEFKPQFRJ6976-09-20 07:48:003.58[facility] LnjcgmkXANZUIZARX5114-97-79 07:48:000.1[facility] KYUSWTOJTW7608-31-21 07:48:000.4[facility] OhjgjmfHEGHZLADHW5473-96-60 07:48:000.6 [facility] WjjdvezNKTLEXSHGV1456-63-18 07:48:004.8[facility]annHEMATOLOGY 2011-02-15 07:48:0026.8[facility] FrjwtgjLJEVMAJLCJ9512-05-42 07:48:003.5[facility] DadkonaFRKFPSJYGJ9470-02-56 07:48:008.3[facility] LfyklkkWQBNWIGGXB5559-04-80 07:48:000.8[facility] JypqvwfRGKDKVWGXQ8790-30-98 07:48:003.0[facility] PKTUIEWFDX4284-54-07 07:48:0064.6[facility] ShxzkrxEIFNKKHUF2276-39-03 09:47:003.1 [facility] CsyprbwRBFKNMCCH4266-58-94 09:47:002.7[facility]annCHEMISTRY 2011-02-13 09:47:005.8[facility] TytxdymIGGJGZMEJ2780-82-95 09:47:00 Test Item Value Reference Range Interpretation Comments B/C Ratio (test code = B/C Ratio) 43.0 1 6-25 H [facility] DsgxciwXKUMLIECA1492-21-13 09:47:00 Test Item Value Reference Range Interpretation Comments A/G Ratio (test code = A/G Ratio) 0.9 1 0.7-1.6 N [facility] AcqkocuUEZYPDTEL7352-42-71 09:47:0052.0[facility]annCHEMISTRY 2011-02-13 09:47:60596.0[facility] SnyxlvvSHKHPFRTR2439-97-02 09:47:00>60.0 [facility] YezvasxTTRGBEYON1750-21-18 09:47:0016.9[facility]annCHEMISTRY 2011-02-13 09:47:008.5[facility] QzseiyrWSDRDATKU1375-97-96 09:47:000.6[facility] ThcgrqiIQWAWSNME8827-66-12 09:47:0049.0[facility] GjyosglUQODKBLAR3754-10-85 09:47:0097.0[facility] WcawctaWYPQSFVJM8477-05-28 09:47:004.9[facility] YWDWWLUZU2350-36-63 09:47:000.4[facility] ObxzwbwMYKUQJWNR7370-18-99 09:47:05569.0 [facility] XszpqxrONLZZRRWV8061-99-28 09:47:32059.0[facility]annCHEMISTRY 2011-02-13 09:47:0017.0[facility] JwcenkeMYREEWVWE8136-68-55 09:47:0025.0[facility] CqabgtlMOQOGUPZM5924-87-69 10:09:0018.6[facility] FeqkfseZIOSCCWYA1838-76-06 10:09:008.3[facility] ChumijsOANRCLYJI2718-18-71 10:09:0063.0[facility] TPJFZVYPT5983-04-29 10:09:0019.0[facility] TtglaojONLKKDOYS5571-59-71 10:09:000.7 [facility] RxuopsxNZITMFVII1996-80-33 10:09:05795.0[facility]annCHEMISTRY 2011-02-12 10:09:0097.0[facility] SnjqlyoLVBAZUIDY7829-02-21 10:09:003.6[facility] QkuempuLDBMVTIUQ5123-84-97 10:09:0023.0[facility] MdoadqsPDRYOIQKZR9840-72-04 10:09:001.0[facility] ViizjgmFSMCACACVK3477-96-44 10:09:000.1[facility] NHMQZBQPUC7498-27-61 10:09:000.2[facility] RcmpcpcMEFGSJQZNV4654-97-87 10:09:004.9 [facility] MskqmtcGEYVPDBVIA8721-60-37 10:09:000.7[facility]annHEMATOLOGY 2011-02-12 10:09:0012.2[facility] XqosnkeOXAHKYBYTY8159-12-30 10:09:005.5[facility] NsbcpfwSIZFNGIWLP0067-02-61 10:09:001.1[facility] KdamhhtEMZPMONPDJ3773-75-29 10:09:0066.2[facility] VjgkkzxKEOMQBAOPM0851-00-88 10:09:0026.5[facility] NKMPLTHII5302-68-54 19:00:001.8[facility] BwwfdheMHAJDKPAP4074-61-21 19:00:0057.0 [facility] MndareaFRZHMIZOB9064-42-02 19:00:006.8[facility]annCHEMISTRY 2011-02-11 19:00:003.2[facility] QmgjgnlLOETVEMGF8668-65-90 19:00:003.6[facility] EwvwljdSPCNZGYCU9445-37-12 19:00:00 Test Item Value Reference Range Interpretation Comments A/G Ratio (test code = A/G Ratio) 0.9 1 0.7-1.6 N [facility] TlvsvwjUOZDBYDQN2938-84-15 19:00:0059.0[facility]annCHEMISTRY 2011-02-11 19:00:92431.0[facility] HwlaymyZNBKSPQHJ7883-95-03 19:00:000.7[facility] StayhxyNCOSHBAWT7899-24-27 19:00:00 Test Item Value Reference Range Interpretation Comments B/C Ratio (test code = B/C Ratio) 45.0 1 6-25 H [facility] DkcbtqeTGZZCUNFVE5179-92-77 19:00:001+ *ABN*(02/11/2011 14:00:00) ?? [facility] HermannSTOOL VQGJR4619-67-87 05:59:00None Seen 4(02/11/2011 00:59:00) ??[facility] ZpsoyofLMKDNBCWJ4082-40-13 19:39:00 Test Item Value Reference Range Interpretation Comments eGFR (test code = eGFR) 48.0 1 [facility] IntzhynQLWWTJZUF5293-94-65 19:39:003.0[facility]annCHEMISTRY 2011-02-10 19:39:00 Test Item Value Reference Range Interpretation Comments A/G Ratio (test code = A/G Ratio) 1.0 1 0.7-1.6 N [facility] NellxaqWHEOZATVI9901-33-06 19:39:00 Test Item Value Reference Range Interpretation Comments B/C Ratio (test code = B/C Ratio) 23.0 1 6-25 N [facility] YywnrecJXWBFPGSL9849-32-18 19:39:0031.0[facility] HermannCHEMISTRY 2011-02-10 19:39:003.1[facility] YpocijcKXIAUNECL6585-17-61 19:39:0064.0[facility] XaxpqtyZHUTBXCTP0077-83-03 19:39:006.1[facility] XxyduziQHCXBWQTC4446-69-33 19:39:000.5[facility] HwqmhfjGUPTIHBMB3505-25-69 19:39:52043.0[facility] FNPAKGNAZO5034-95-32 10:19:00Slight (02/08/2011 05:19:00) ??[facility] ZLPRIBRMHI7449-78-71 10:19:00Slight (02/08/2011 05:19:00) ??[facility] ALBZRBKICU1066-01-32 10:19:001+ *ABN*(02/08/2011 05:19:00) ??[facility] HMBVONZDCK6559-68-59 10:19:00Normal (02/08/2011 05:19:00) ??[facility] ZFXNWBWMYJ7280-04-34 08:33:000.0[facility] KPKUSMZ1071-54-73 19:12:00Negative (02/05/2011 14:12:00) ??[facility] TazxfkgPAQLYCYAN5093-02-31 02:09:0064.0[facility] UgpoyfgXDCKKODAR8043-92-00 02:09:000.03[facility] QGEHHQKSU5860-63-18 18:20:0071.0[facility] HiuumciIKSGRDEEC7895-36-55 18:20:000.05 [facility] FexibgdPAHBNOJGRD1240-42-46 22:21:00??[facility] 2011-02-02 22:21:00Negative (02/02/2011 17:21:00) ??[facility] 2011-02-02 22:21:00<1.0[facility] OygvxgnCHUJAEABGP2832-61-91 22:21:00 Occasional /HPF *NA*(02/02/2011 17:21:00) ??[facility] KlntqwgAXSDQHQXWS2760-89-84 22:21:00Negative (02/02/2011 17:21:00) ??[facility] VbjkisuCEXDJYDBAU6060-68-38 22:21:00Negative mg/dL *NA*(02/02/2011 17:21:00) ??[facility] HermannURINALYSIS 2011-02-02 22:21:00Negative *NA*(02/02/2011 17:21:00) ??[facility] [place] WKKFJAWOWQ0660-87-79 22:21:00Negative (02/02/2011 17:21:00) ??[facility] [place] OQTCZFDODR2558-81-61 22:21:00Negative mg/dL (02/02/2011 17:21:00) ??[facility] SsaiubqAKEBYJLMBW3553-29-30 22:21:00Negative mg/dL *NA*(02/02/2011 17:21:00) ?? [facility] NspmwadNGFBIBDTBE9023-36-72 22:21:00Light Yellow *NA*(02/02/2011 17:21:00) ??[facility] NenjtbvCJCXNIJHMN0714-75-05 22:21:00Clear (02/02/2011 17:21:00) ??[facility] OkxavnwRJHVMSRZES7694-49-20 22:21:00 Test Item Value Reference Range Interpretation Comments UA Spec Grav (test code = UA Spec 1.004 1 N Grav) [facility] AeonvkjBSPJZKCYYT4203-90-02 22:21:00 Test Item Value Reference Range Interpretation Comments UA pH (test code = UA pH) 7.0 1 5.0-8.0 N [facility] HrtlzrbTCJMVOJOC2757-02-18 10:30:000.98[facility]annCHEMISTRY 2011-02-01 10:30:000.711[facility] GdytxstZFETFKLCQF3909-76-33 10:30:0019.4 [facility] HermannBEDSIDE GLUCOSE IRMITJE0507-25-55 10:46:75284.0[facility] XYYYBDWGY4118-38-46 08:36:002.9[facility] DqfvugkNZQBCDZQD0010-33-87 08:36:0024.0 [facility] AoiarijHNKAGBEKX2988-32-72 08:36:007.7[facility]annCHEMISTRY 2011-01-31 08:36:78650.0[facility] XlrlvtsBGLCETNLA7326-66-09 08:36:49798.0 [facility] KjjqfaxQFZWXQKOW1803-80-64 08:36:003.9[facility] HermannCHEMISTRY 2011-01-31 08:36:0017.0[facility] RieoxjiKNIISVKEN6605-72-46 08:36:000.7[facility] NgydchiNXJYZZJXQ3743-17-55 08:36:21513.0[facility] RewxjbdPFSXDQNAA8705-09-48 08:36:0017.9[facility] OrbngbnIBIJLXATQ2648-58-70 08:36:001.9[facility] AKHYGYGUQ3100-52-48 08:36:001.13[facility] XontdswBOYDMSIVY9460-59-57 08:36:001.09 [facility] AzrbqveDPJUTDRGV9824-59-25 08:36:004.52[facility]annCHEMISTRY 2011-01-31 08:36:004.36[facility] HhbyvwsHIQMCECNAP6203-40-78 08:36:00Slight *ABN*(01/31/2011 03:36:00) ??[facility] YvrbtcmCPMVCZLDUZ9282-63-18 08:36:001.4 [facility] TdzwmcjGJAFBRSDQC6948-05-28 08:36:003.0[facility] HermannHEMATOLOGY 2011-01-31 08:36:0018.6[facility] PyixznkZSHLYHGYRH8985-22-02 08:36:001.6[facility] LqpeybaCYNZSUWTYV7563-10-87 08:36:002.0[facility] YvbeystHNVGOAIXED2481-62-87 08:36:007.0[facility] EgudvykZLDOJIFNKW3740-44-64 08:36:006.0[facility] QJJSREHUDX6494-31-65 08:36:0079.0[facility] BgcxzliVDAHMMAQBN2415-09-74 08:36:00 2.0[facility] KxaonqvEULETYDBRU9924-26-75 08:36:00Slight (01/31/2011 03:36:00) ?? [facility] VcgkelpVMUMBJKCRH2996-43-14 08:36:00Slight (01/31/2011 03:36:00) ?? [facility] OfsofufHLUBPJDZNN0334-42-64 08:36:00Present *ABN*(01/31/2011 03:36:00) ??[facility] YjunyioXSBAUJTGVP7759-08-71 08:36:000.0[facility]annHEMATOLOGY 2011-01-31 08:36:001.0[facility] YfrzzhxFZHFMJKZYM2732-60-38 08:36:0015.3[facility] MivrofcSMCKSXIANI0908-58-20 08:36:0010.1[facility] SkajaeqHPFPEMJWCT8633-03-43 08:36:35083.0[facility] IpcbvlrRZUOKJJKLI7330-34-02 08:36:0037.3[facility] [place] LXYXVWXNFA8081-71-08 08:36:0032.7[facility] XgncdsmIKAIABZFLA9186-95-50 08:36:00 94.8[facility] CrlyltsTLNVBEWWQF1946-00-80 08:36:00 Test Item Value Reference Range Interpretation Comments MCH (test code = MCH) 31.0 pg 27.0-31.0 N [facility] HwqfexfZDCQRZTGWX0761-93-06 08:36:0023.0[facility]annHEMATOLOGY 2011-01-31 08:36:003.93[facility] OqgdmciFYTZYLGTWV9135-89-45 08:36:0012.2[facility] HermannBEDSIDE GLUCOSE TPPKPBU3964-28-17 05:49:71701.0[facility] HermannBEDSIDE GLUCOSE YSKVITX4884-93-35 01:36:56685.0[facility] SbztuntXHMBBFURX9366-58-70 15:02:002.7[facility] FjdvjtjFTNQNMBZF4838-07-57 15:02:003.7[facility] [place] YSWEJEBDK4724-91-05 15:02:004.2[facility] PcikajhQWBBLBQAT8460-26-96 15:02:004.24 [facility] TqqvavuDSUIEYNMD7166-78-64 15:02:001.05[facility] HermannCHEMISTRY 2011-01-29 15:02:001.06[facility] InxmlrfCFIZTFQPT7367-60-45 15:02:002.4[facility] DjqnrniIGFCHMLLO5210-35-82 15:02:0015.0[facility] CmlkssuCVGYBFIJL3456-93-80 15:02:0023.0[facility] NfpnnhqPGVBGIEGK2722-53-91 15:02:000.8[facility] NXPULUQCS6489-61-79 15:02:70219.0[facility] OjwhixjOBXWTDARO6363-19-64 15:02:004.0 [facility] KpozgziVOSLGAMCT1662-07-44 15:02:81332.0[facility] HermannCHEMISTRY 2011-01-29 15:02:63254.0[facility] LilmijzLPROWNVFN0276-33-42 15:02:0024.0[facility] DidebjcJOEWMGNUJ1169-37-76 15:02:007.8[facility] QepzxjqMKFPJIYLKI5505-28-09 15:02:00Slight *ABN*(01/29/2011 10:02:00) ??[facility] HexckoxOAIHQSGRLR9872-91-31 15:02:00Slight (01/29/2011 10:02:00) ??[facility] BqvkuiyEBWFVKLNNR7910-49-41 15:02:000.0[facility] FbzouhbHTUWZYTVCA3061-50-01 15:02:001.0[facility] ULGFOWQRBP6385-05-70 15:02:0081.0[facility] NvlizujYGAPBDWXNL7030-22-44 15:02:00 9.0[facility] DsemoaaMMCRNJSKLQ2815-73-17 15:02:005.0[facility] HermannHEMATOLOGY 2011-01-29 15:02:001.0[facility] TfbpykvJOXVAZGOKN4706-97-40 15:02:002.0[facility] QnfeltbZNWYWXERYS9614-76-91 15:02:002.0[facility] KoyallkMFSBQDVBAZ1712-27-82 15:02:001.0[facility] BwgoevnHUGXLFROUZ9425-36-66 15:02:001.8[facility] LRNYLVQCIJ7731-75-90 15:02:0016.3[facility] JgbkxlqNYJXYPCMBF8578-63-35 15:02:00 9.4[facility] FwgwhvpMCKVSFDTIQ3794-33-09 15:02:0033.9[facility]annHEMATOLOGY 2011-01-29 15:02:0094.0[facility] QuqebgbJKKYJSBJPY5974-23-32 15:02:00 Test Item Value Reference Range Interpretation Comments MCH (test code = MCH) 31.5 pg 27.0-31.0 H [facility] VevkqjjMJBARNWQQU2876-40-51 15:02:0033.6[facility]annHEMATOLOGY 2011-01-29 15:02:0016.1[facility] XwfhczgLWJXQNNIKG8003-26-49 15:02:99194.0 [facility] NglxexuBODXERWQOS9037-71-85 15:02:0019.6[facility] HermannHEMATOLOGY 2011-01-29 15:02:0011.4[facility] WyfapvaFFDAMRKYOC2612-36-01 15:02:003.61[facility] MvhlklyIRTABIJTH3035-16-11 06:30:0014.2[facility] UvcvgkfQPSHGKCDW4869-73-20 06:30:75873.0[facility] VjqzrldHDLETDITL3408-53-24 06:30:84343.0[facility] IZKMUTVEX3444-97-38 06:30:003.2[facility] VtqyktdDBMIYSPKH1802-68-58 06:30:0025.0 [facility] OaiunspOZYQTXGXO6450-61-60 06:30:007.5[facility] HermannCHEMISTRY 2011-01-28 06:30:0057.0[facility] ZmzkpswJGUQWOMPY8140-56-92 06:30:0021.0[facility] VfpdzriTNUYBPKCM6626-36-77 06:30:000.7[facility] AmwxigmXZEABGDCQ5792-30-51 06:30:003.2[facility] SayaqylJNDHQFDDC2960-83-63 06:30:002.2[facility] WWHPPVCKT7089-29-15 06:30:001.09[facility] SbassuuXKRBYDGFU7153-21-74 06:30:001.06 [facility] EkhqfwbNZBUEAZOM8756-13-01 06:30:004.36[facility] HermannCHEMISTRY 2011-01-28 06:30:004.24[facility] EijiutdFMLGYNOWMP8360-85-77 06:30:27797.0 [facility] DxayjqlCORBXNCMOM2757-58-30 06:30:0010.4[facility] HermannHEMATOLOGY 2011-01-28 06:30:00 Test Item Value Reference Range Interpretation Comments MCH (test code = MCH) 31.1 pg 27.0-31.0 H [facility] KxizoovRIJVKIICSV3807-90-42 06:30:0033.3[facility] HermannHEMATOLOGY 2011-01-28 06:30:0016.0[facility] WkwenpgPZPMXPAYYL7455-45-32 06:30:0032.3[facility] VunqozhIRTRYRKYSP9652-46-31 06:30:0093.5[facility] CjalubaPTUBEDKEVE3502-63-27 06:30:003.45[facility] YaijbfaKYLKSFCLFX7728-73-93 06:30:0010.7[facility] SMIPICABPY1738-22-52 06:30:0020.1[facility] MdvvwcuXTSNWTHCWC2940-92-75 06:30:00 0.0[facility] NytdtehOXAZJXBXOV2632-37-69 06:30:004.1[facility] HermannHEMATOLOGY 2011-01-28 06:30:0018.0[facility] YxsocvvYRRKKRWEFP0525-58-42 06:30:000.0[facility] HszmhhpIZSFDSCFLM9628-11-91 06:30:006.6[facility] FjhqqtlJLJTAPXWCO4582-22-97 06:30:000.0[facility] EmofcpcYWNLLBHVPY6269-54-10 06:30:000.0[facility] XWCNNKNCYT8567-14-24 06:30:000.8[facility] EuhohxfZWXDVVZFXN0572-37-18 06:30:001.3 [facility] EiptdfbWZLLXXYEFK8706-98-82 06:30:0089.3[facility] HermannCHEMISTRY 2011-01-27 09:07:63900.0[facility] AolehdxXLRNGCXRT5306-12-83 09:07:00 Test Item Value Reference Range Interpretation Comments POC A pH (test code = POC A pH) 7.56 1 7.35-7.45 H [facility] OdqaxblSKNZCLNMZ2821-24-76 09:07:38054.0[facility] HermannCHEMISTRY 2011-01-27 09:07:0037.0[facility] UaampktSVVQASRBV1783-25-17 09:07:004.0[facility] PcnlinhQWVWRTLJG5864-99-88 09:07:16168.0[facility] GfkofjfCHYGXUPVH9795-66-60 09:07:0025.0[facility] AsqwlxcUKTYCADOR4351-72-43 09:07:0028.0[facility] BENSVSQCU2817-70-32 05:14:17013.0[facility] YomxxjvSHAOETRWDN9172-50-29 05:14:00 Test Item Value Reference Range Interpretation Comments PTT (test code = PTT) 25.2 s 22.9-35.8 N [facility] QrojgttSACVAUCWXV7279-16-52 05:14:00 Test Item Value Reference Range Interpretation Comments PT (test code = PT) 15.8 s 12.0-14.7 H [facility] OsswthiUIUPUUYFOQ6639-93-75 05:14:00 Test Item Value Reference Range Interpretation Comments INR (test code = INR) 1.26 1 0.85-1.17 H [facility] AsgvodkXGGPDQLITO9040-89-45 05:14:000.0[facility] HermannHEMATOLOGY 2011-01-27 05:14:000.2[facility] UbykqjrMTIVXJZJPM2763-80-68 05:14:000.0[facility] CgekhbxYKNGGQLZAF4714-22-12 05:14:000.0[facility] QvdtfhmTFVCIBWNB1065-15-89 20:09:73117.0[facility] EntqyvoZVVIYDKLJL6206-83-98 20:09:000.0[facility] ZDFHBNNPID2122-39-26 20:09:000.0[facility] ZlhkvmoNRYFKKYUOR2099-00-05 20:09:000.0 [facility] JrzkkjpDLEVEVEOCQ1920-76-28 20:09:000.1[facility] HermannHEMATOLOGY 2011-01-26 20:09:00 Test Item Value Reference Range Interpretation Comments PTT (test code = PTT) 29.8 s 22.9-35.8 N [facility] TgeuummFDZZBQCDOX8145-35-29 20:09:00 Test Item Value Reference Range Interpretation Comments PT (test code = PT) 15.4 s 12.0-14.7 H [facility] FwzhuztWTOUUGGNJU9432-98-11 20:09:00 Test Item Value Reference Range Interpretation Comments INR (test code = INR) 1.22 1 0.85-1.17 H [facility] PrtyzvzWWTBWVQFL3922-10-02 18:43:96403.0[facility] HermannCHEMISTRY 2011-01-26 18:43:000.8[facility] BosklghRJZZUGXWH5014-81-28 18:43:001.17[facility] FcqrqalLTBFJORBE0538-31-18 18:43:003.6[facility] SxatdyoESALIROXD7710-26-20 18:43:88713.0[facility] BdnofuvLYKWWJEAZ8843-71-79 18:43:0080.0[facility] NICUFPGOI6354-08-31 18:43:0040.0[facility] TmkcvyqVVCOCSLQI2039-93-11 18:43:0037.0 [facility] FmfkzuzPGCDKYVTE4511-99-95 18:43:00 Test Item Value Reference Range Interpretation Comments POC A pH (test code = POC A pH) 7.4 1 7.35-7.45 N [facility] WvauhauIYWNNKFEO2996-18-13 18:43:0034.0[facility] HermannCHEMISTRY 2011-01-26 18:43:000.0[facility] EhuoidnIRKQXCNKX6832-21-76 18:43:0096.0[facility] WwjyoaeAVRDHZQKW7298-22-91 18:43:0025.0[facility] GjryektOLFMCHOQB1154-71-78 17:57:0096.0[facility] NkxfxdvFLBLBFPFW6164-87-65 17:57:003.[facility] ZBVIUTNYE5737-78-34 17:57:000.8[facility] PberycsTQMKMFNMR7228-77-95 17:57:56750.0 [facility] JuiuibqQBZXHDDFM6257-80-32 17:57:0037.0[facility] HermannCHEMISTRY 2011-01-26 17:57:0025.0[facility] BfxfcchWNZDOKDBP0671-63-99 17:57:0079.0[facility] SnjimgmKSEGWDPFG8548-43-36 17:57:0038.0[facility] AprwsnrJGNWWZECJ0765-84-92 17:57:00 Test Item Value Reference Range Interpretation Comments POC A pH (test code = POC A pH) 7.42 1 7.35-7.45 N [facility] NiaasvrAZREQVMAV1926-48-65 17:57:000.0[facility] HermannCHEMISTRY 2011-01-26 17:57:001.22[facility] GquwppeXIVXHBBDN0101-15-31 17:57:09768.0[facility] YznfjekUMEOEICPH9892-83-97 17:57:0036.0[facility] NchpafiFSOZJGSBG0944-63-56 17:01:0041.0[facility] SwcningIXQRDWFIQ4866-44-00 17:01:06303.0[facility] PDVOUIMAB8722-15-13 17:01:001.05[facility] BupipgmJSNJUAIOA0034-45-08 17:01:003.6 [facility] BhldhneLRYBDHEYD1269-24-24 17:01:000.8[facility] HermannCHEMISTRY 2011-01-26 17:01:32450.0[facility]annBLOOD BANK ZLGRFPQ1486-59-84 14:00:00 Negative (01/26/2011 09:00:00) ??[facility] FlevdxxXRIEUXZDOG4804-81-29 05:15:00 Test Item Value Reference Range Interpretation Comments PTT (test code = PTT) 28.2 s 22.9-35.8 N [facility] EpfjhcmMPUPEUEPNB2736-57-80 05:15:00 Test Item Value Reference Range Interpretation Comments INR (test code = INR) 1.24 1 0.85-1.17 H [facility] CmhipqoTKQJCHTVCP2827-48-39 05:15:00 Test Item Value Reference Range Interpretation Comments PT (test code = PT) 15.6 s 12.0-14.7 H [facility] QddqfilEILCLURAY1521-26-54 12:56:00 Test Item Value Reference Range Interpretation Comments CK MB Index (test code = CK MB Index) 0.4 1 <=2.5 N [facility] EnvcympDKEXADJSC4512-25-16 12:56:001.1[facility] HermannCHEMISTRY 2011-01-25 12:56:37367.0[facility] SgfvvyuPVKDUMRXM5701-71-28 12:56:00<0.01 [facility] YaeofsqNDXYXFQUD8999-97-98 12:56:61261.0[facility] HermannCHEMISTRY 2011-01-25 05:15:88081.0[facility] UlbogglHVSIFERIL5490-67-38 05:15:00<0.01 [facility] MlqymtvEETCVQTTG0481-64-98 05:15:00 Test Item Value Reference Range Interpretation Comments CK MB Index (test code = CK MB Index) 0.7 1 <=2.5 N [facility] RnzzxrvNCOJFHDIF8328-88-19 05:15:001.5[facility] HermannCHEMISTRY 2011-01-25 00:16:002.4[facility] CtzvnpdGMHHZKJYWN8460-23-28 00:16:00Slight *ABN*(01/24/2011 19:16:00) ??[facility] LmbpxppNFMZSGQSVU0606-05-81 00:16:002.0 [facility] WneaecyBHVPBSNXIG4353-92-46 00:16:00Normal (01/24/2011 19:16:00) ?? [facility] UywafglQKOKDGNIC7259-32-10 20:01:00<0.01[facility] HermannCHEMISTRY 2011-01-24 20:01:0060.0[facility] XyuxwteBWBVKAOTL6477-14-64 20:01:0034.0[facility] thereNowann7signal SolutionsOOD BANK IOLLPCM5067-70-66 08:15:00Negative (01/24/2011 03:15:00) ?? [facility] thereNowannSmartAngels.fr OVZPEKZ1880-58-77 08:15:00Product available (01/24/2011 03:15:00) ??[facility] thereNowannBLSteel [employer] BANK ONMPAMY4072-81-66 08:15:00 Product available (01/24/2011 03:15:00) ??[facility] JbezrmbKQLEJEVXU6670-10-57 16:30:00 Test Item Value Reference Range Interpretation Comments CK MB Index (test code = CK MB Index) 1.2 1 <=2.5 N [facility] RuxcidyISIXFZWNG1976-02-79 16:30:001.2[facility] HermannCHEMISTRY 2011-01-23 16:30:008.7[facility] AeomgmwKNCJYHEJX9488-49-14 16:30:00<0.02 [facility] YcqynjjLSNSHZHSCY4946-48-62 10:29:00??[facility] HermannURINALYSIS 2011-01-23 10:29:00Occasional /LPF *NA*(01/23/2011 05:29:00) ??[facility] WGEDXLPZGB0305-99-60 10:29:00<1.0[facility] WayilcpSJIJIFTWNB3723-55-96 10:29:00Few /LPF *NA*(01/23/2011 05:29:00) ??[facility] HermannURINALYSIS 2011-01-23 10:29:00<1.0[facility] RomxlkfBIMHRPQMSM8093-41-98 10:29:00Negative mg/dL (01/23/2011 05:29:00) ??[facility] CenterPqxlklcLSRBBEZSJS1018-30-63 10:29:00 Negative (01/23/2011 05:29:00) ??[facility] CenterElwzpptFCYWFIWZYH7339-62-89 10:29:00 Negative (01/23/2011 05:29:00) ??[facility] CenterPmnrhbvFNRJEYXPOY5944-04-18 10:29:00 Negative *NA*(01/23/2011 05:29:00) ??[facility] CenterGhfwkxsSGVCLHMFMM3764-17-72 10:29:59382 mg/dL *ABN*(01/23/2011 05:29:00) ??[facility] HermannURINALYSIS 2011-01-23 10:29:00Negative (01/23/2011 05:29:00) ??[facility] 2011-01-23 10:29:00 Test Item Value Reference Range Interpretation Comments UA pH (test code = UA pH) 5.0 1 5.0-8.0 N [facility] CenterGrwklwfYOKZUZJVAX9001-20-93 10:29:00 Test Item Value Reference Range Interpretation Comments UA Spec Grav (test code = UA Spec 1.01 1 N Grav) [facility] CenterTrxqydsIKNTLMOOIF7070-90-25 10:29:00Clear (01/23/2011 05:29:00) ?? [facility]yrxzucXVIXKLQGHV1302-89-89 10:29:00Yellow *NA*(01/23/2011 05:29:00) ?? [facility] RCXJBJAV3002-46-81 10:00:00Negative 1(01/23/2011 05:00:00) ??[facility]
--- OUTSIDE RECORDS SUMMARY | 2020-04-02 04:21 | XMS REPORT | Summary of Care ---
:1945 Author Name Chriss Ward Address Unavailable Unavailable , Care Team Providers Name Role Phone NOELLE Still Unavailable Unavailable BRAD Still Unavailable Unavailable SARA [...] Still, SHEKHAR Start : 12-Nov-2018 Active Pyridostigmine [place] 60 MG Oral Tablet TAKE 1 TABLET BY MOUTH THREE TIMES A DAY Quantity: 270 Refills: 1 NOELLE Still, SHEKHAR Start : 23-Nov-2018 Active azaTHIOprine 50 MG Oral Tablet Take 1 tab QDAY x 1 wk, then increase to 1 tab BID. Quantity: 60 Refills: 5 SHEKHAR DRAKE M.D. Start : 27-Mar-2020 Active Allergies and Adverse Reactions Name Dates [...] Z86.018) Status: Resolved Procedures Procedure Dates Details [QL] CBC (INCLUDES DIFF/PLT) Date: 27-Mar-2020 [QL] CBC (INCLUDES DIFF/PLT) Date: 27-Mar-2020 History of Ventriculoperitoneal shunt creation Completed Immunization Name Dates Details Immunizations not documented Social History Name Dates Details Tobacco smoking consumption unknown (finding) Vital Signs Date Test Result Details [id number] Systolic blood pressure 144 mm[Hg] Status: Diastolic blood pressure 64 mm[Hg] Status: Body temperature 97.5 f Status: Heart Rate 84 /min Status: Respiratory rate 18 /min Status: Results Date Description Value Details Results not documented Plan of Care Name Dates Details Planned Observations [QL] CBC (INCLUDES DIFF/PLT) On: 27-Mar-2020 Intent Comments: To be Done : Dates Schedule: 04/03/2020, 04/10/2020 ... Planned Goals not documented Planned Encounters Appointment; SHEKHAR DRAKE M.D. On: 26-Jun-2020 11: 00 Interventions Provided Medication ChangesazaTHIOprine 50 MG Oral Tablet - StartLabs/Procedures/Imaging [QL] CBC (INCLUDES DIFF/PLT); To Be Done: 27 Mar 2020 Instructions Name Dates Details Instructions not documented [...] 10:0 0 Encounter Diagnosis: Problem not documented Appointment; SHEKHAR DRAKE M.D. On: 27-Mar-2020 11: 30 Encounter Diagnosis: Problem not documented
--- OUTSIDE RECORDS SUMMARY | 2020-04-02 04:21 | XMS REPORT | Summary of Care ---
:1945 Author Name NOELLE Still Address [address] [facility] [facility] [place] [address] Care Team Providers Name Role Phone NOELLE [...] Still, SHEKHAR Start : 12-Nov-2018 Active Pyridostigmine [place] 60 MG Oral Tablet TAKE 1 TABLET [...] 27-Mar-2020 [QL] CBC (INCLUDES DIFF/PLT) Date: 27-Mar-2020 [QL] CBC (INCLUDES DIFF/PLT) Date: 27-Mar-2020 History of Ventriculoperitoneal shunt creation Completed Immunization Name Dates Details Immunizations not documented Social History Name Dates Details Tobacco smoking consumption unknown (finding) Vital Signs Date Test Result Details [id number] Systolic blood pressure 144 mm[Hg] Status: Diastolic blood pressure 64 mm[Hg] Status: Body temperature 97.5 f Status: Heart Rate 84 /min Status: Respiratory rate 18 /min Status: Results Date Description Value Details Results not documented Plan of Care Name Dates Details Planned Observations [QL] CBC (INCLUDES DIFF/PLT) On: 27-Mar-2020 Intent Comments: To be Done : Dates Schedule: 04/03/2020, 04/10/2020 ... [QL] CBC (INCLUDES DIFF/PLT) On: 03-Apr-2020 Intent Planned Goals not documented Planned Encounters Appointment; [...]
--- OUTSIDE RECORDS SUMMARY | 2020-04-02 04:21 | XMS REPORT | Summary of Care ---
[...] Still, SHEKHAR Start : 12-Nov-2018 Active Pyridostigmine [place] 60 MG Oral Tablet TAKE 1 TABLET [...]
[2020-04-02] MEDS ORDERED: ACETAMINOPHEN 500 MG TAB ONE (04:24)
[2020-04-02 04:25] LABS: Protime INR 0.98
[2020-04-02 04:39] LABS: Urine Blood 2+ (NEG); Urine Glucose NEGATIVE (NEG); Urine Protein 3+ (NEG); Urine Specific Gravity >1.030 (1.005-1.030); Urine pH 8.5 (5.0-7.0)
[2020-04-02 04:53] LABS: Albumin 2.8 g/dL (3.4-5.0); Bilirubin Direct 0.1 mg/dL (0-0.2); Bilirubin Total 0.3 mg/dL (0.2-1.0); Protein, Total 6.1 g/dL (6.4-8.2)
[2020-04-02 04:55] LABS: BUN Blood Urea Nitrogen 19 mg/dL (7-18); Bicarbonate 31 mmol/L (21-32); Potassium 4.1 mmol/L (3.5-5.1); Sodium Level 144 mmol/L (136-145); Troponin (Emerg Dept Use Only) < 0.02 ng/mL (0.0-0.045)
[2020-04-02 04:56] LABS: Glucose Level 49 mg/dL (74-106)
[2020-04-02 05:18] LABS: Anisocytosis 1+; Blood Morphology Comment NOTED (NOT SEEN); Platelet Estimate ADEQ; White Blood Cell Scan OK (OK)
[2020-04-02 05:19] LABS: Hypochromasia 2+; Macrocytosis 2+; Poikilocytosis 2+; Polychromasia 1+
[2020-04-02] MEDS ORDERED: LIDOCAINE 2% MPF 5 ML VIAL ONE (05:33)
[2020-04-02] MEDS ORDERED: LIDOCAINE 1% MPF 30 ML VIAL ONE (05:46)
[2020-04-02 06:35] LABS: Urine Bacteria >50 /HPF (<20); Urine Culture Reflex Order REFLEXED; Urine Mucus 2+ /HPF (NONE SEEN)
[2020-04-02] MEDS ORDERED: NITROFURAN MACRO 100 MG CAP PO ONE (06:52)
--- NOTE | 2020-04-02 06:52 | EDPHYS ---
Physician Documentation [facility] Name: Franci Lange Age: 75 yrs Sex: Female : 1945 Arrival Date: 04/02/2020 Time: 03:29 Bed 6 Private MD: Manfred Pearson R ED Physician Gustavo Chisholm HPI: 04/02 04:00 This 75 yrs old Female presents to ER via EMS with complaints of Fall Injury, mh7 Abrasion(s) - forehead. 04:00 Details of fall: The patient fell from seated position, while transferring, out of a mh7 wheelchair. Onset: The symptoms/episode began/occurred today. Associated injuries: The patient sustained injury to the head, contusion, swelling, right knee, contusion. Severity of symptoms: At their worst the symptoms were moderate, earlier today, in the emergency department the symptoms have improved, moderately. 07:13 Patient reported fall while transferring from her wheel chair to toilet. She hit the mh7 front of her head and has bruising. Denies any LOC or neck pain. Denies any symptoms prior to falling including chest pain, abdominal pain, SOB, nausea, vomiting, dizziness, numbness/tingling, or weakness.. Historical: - Allergies: 03:44 Aspirin; ea 03:44 cefepime; ea 03:44 CEPHALOSPORINS; ea 03:44 Ciprofloxacin; ea 03:44 Cortisone; ea 03:44 Cortizone-10; ea 03:44 Erythromycin; ea 03:44 IVIG; ea 03:44 PENICILLINS; ea 03:44 Phenobarbital; ea 03:44 Tape; ea - Home Meds: 03:44 sertraline 25 mg Oral tab 1 tab once daily [Active]; amlodipine 10 mg tab 1 tab once ea daily [Active]; clonazepam 0.5 mg Oral tab 1 tab daily [Active]; furosemide 20 mg Oral tab 1 tab nightly [Active]; Levemir 100 unit/mL subcutaneous soln 25 unit nightly [Active]; levothyroxine 88 mcg tab 1 tab once daily [Active]; Novolog 10 units Sub-Q soln before meals [Active]; potassium chloride 10 mEq Oral cpER 1 cap 3 times per day [Active]; prednisone 20 mg Oral tab 1 tab once daily [Active]; pyridostigmine bromide 60 mg Oral tab 1 tab 3 times per day [Active]; ramipril 2.5 mg Oral cap 1 cap once daily [Active]; rosuvastatin 20 mg Oral tab 1 tab nightly [Active]; - PMHx: 03:44 Osteoporosis; Myocardial infarction; Myasthenia Gravis; Hypothyroidism; High ea Cholesterol; Hypertension; Diabetes - IDDM; Depression; CHF; Anxiety; Ankylosing Spondylitis; - PSHx: 04:46 brain shunt; meningioma; neck sx; spinal sx; sg 04:54 Carpal Tunnel Repair; Cholecystectomy; sg - Immunization history:: Adult Immunizations up to date. - Immunization history: Last tetanus immunization: unknown. - Social history:: Smoking status: . ROS: 04:00 Constitutional: Negative for fever, chills, and weight loss, Eyes: Negative for injury, mh7 pain, redness, and discharge, ENT: Negative for injury, pain, and discharge, Neck: Negative for injury, pain, and swelling, Cardiovascular: Negative for chest pain, palpitations, and edema, Respiratory: Negative for shortness of breath, cough, wheezing, and pleuritic chest pain, Abdomen/GI: Negative for abdominal pain, nausea, vomiting, diarrhea, and constipation, Back: Negative for injury and pain, : Negative for injury, bleeding, discharge, and swelling, Neuro: Negative for headache, weakness, numbness, tingling, and seizure, Psych: Negative for depression, anxiety, suicide ideation, homicidal ideation, and hallucinations, Allergy/Immunology: Negative for hives, rash, and allergies, Endocrine: Negative for neck swelling, polydipsia, polyuria, polyphagia, and marked weight changes, Hematologic/Lymphatic: Negative for swollen nodes, abnormal bleeding, and unusual bruising. Exam: 04:00 Constitutional: This is a well developed, well nourished patient who is awake, alert, mh7 and in no acute distress. 04:00 Eyes: Pupils equal round and reactive to light, extra-ocular motions intact. Lids and lashes normal. Conjunctiva and sclera are non-icteric and not injected. Cornea within normal limits. Periorbital areas with no swelling, redness, or edema. ENT: Nares patent. No nasal discharge, no septal abnormalities noted. Tympanic membranes are normal and external auditory canals are clear. Oropharynx with no redness, swelling, or masses, exudates, or evidence of obstruction, uvula midline. Mucous membranes moist. Neck: Trachea midline, no thyromegaly or masses palpated, and no cervical lymphadenopathy. Supple, full range of motion without nuchal rigidity, or vertebral point tenderness. No Meningismus. Chest/axilla: Normal chest wall appearance and motion. Nontender with no deformity. No lesions are appreciated. Cardiovascular: Regular rate and rhythm with a normal S1 and S2. No gallops, murmurs, or rubs. Normal PMI, no JVD. No pulse deficits. Respiratory: Lungs have equal breath sounds bilaterally, clear to auscultation and percussion. No rales, rhonchi or wheezes noted. No increased work of breathing, no retractions or nasal flaring. Abdomen/GI: Soft, non-tender, with normal bowel sounds. No distension or tympany. No guarding or rebound. No evidence of tenderness throughout. Back: No spinal tenderness. No costovertebral tenderness. Full range of motion. 04:00 Neuro: Awake and alert, GCS 15, oriented to person, place, time, and situation. Cranial nerves II-XII grossly intact. Motor strength 5/5 in all extremities. Sensory grossly intact. Cerebellar exam normal. Normal gait. Psych: Awake, alert, with orientation to person, place and time. Behavior, mood, and affect are within normal limits. 04:00 Head/face: 04:10 Musculoskeletal/extremity: Extremities: noted in the left knee: contusion, pain, mh7 tenderness, ROM: limited active range of motion due to pain, in the left knee, limited passive range of motion due to pain, in the left knee, Circulation is intact in all extremities. Pulses: are normal with no appreciated deficits, Sensation intact. Compartment Syndrome exam of affected extremity: is normal. no numbness, no tingling, no sensation deficit, no palor, no weak pulses, Joints: the left knee displays painful range of motion, tenderness, Weight bearing: Tendon exam: specific tendon testing normal through active and passive range of motion 04:10 Skin: injury, contusion(s), that are superficial, of the forehead, laceration(s), the wound is approximately 4.5 cm(s), with a depth of 0.5 cm(s), of the forehead. Vital Signs: 03:30 BP 136 / 83; Pulse 74; Resp 19; Pulse Ox 99% on R/A; ll2 03:44 BP 136 / 83; Pulse 74; Resp 18; Temp 97.7; Pulse Ox 99% on R/A; Weight 90.72 kg; Height ea 4 ft. 11 in. (149.86 cm); 04:30 BP 141 / 44; Pulse 67; Resp 18; Pulse Ox 96% on R/A; ll2 06:32 BP 116 / 75; Pulse 83; Resp 23; Pulse Ox 97% on R/A; ll2 03:44 Body Mass Index 40.39 (90.72 kg, 149.86 cm) ea [place] Coma Score: 03:40 Eye Response: spontaneous(4). Verbal Response: oriented(5). Motor Response: obeys ea commands(6). Total: 15. Trauma Score (Adult): 03:40 Eye Response: spontaneous(1); Verbal Response: oriented(1); Motor Response: obeys ea commands(2); Systolic BP: > 89 mm Hg(4); Respiratory Rate: 10 to 29 per min(4); Louisa Score: 15; Trauma Score: 12 Procedures: 06:39 Splinting: Splint applied to left knee using knee immobilizer, applied by nurse. mh7 Examined by me, post splint application: neurovascular intact, 2+ distal pulses palpable, brisk capillary refill noted, Patient tolerated well. Laceration: 06:39 Wound Repair of 4.5cm ( 1.8in ) subcutaneous laceration to Forehead above right mh7 eyebrow. Irregularly shaped.. Distal neuro/vascular/tendon intact. Anesthesia: Local anesthetic administered with 6 mls of 1% lidocaine. Wound prep: Extensive cleansing with hibiclenz by nurse, Wound irrigation with saline by nurse, Wound explored extensively, Copious irrigation. Subcutaneous tissue closed with 3 4-0 Vicryl using simple sutures and sterile technique. Skin closed with 10 6-0 Prolene using simple sutures and sterile technique. Dressed with Neosporin, non-adherent dressing. Patient tolerated well. MDM: 03:[address] [facility] 06:39 Differential diagnosis: abrasion, closed head injury, contusion, fracture, laceration, mh7 multiple trauma. Data reviewed: vital signs, nurses notes, EMS record, old medical records, lab test result(s), cardiac enzymes, CBC, electrolytes, urinalysis, EKG, radiologic studies, CT scan, plain films. Data interpreted: Pulse oximetry: on room air is 97 %. Interpretation: normal. Counseling: I had a detailed discussion with the patient and/or guardian regarding: the historical points, exam findings, and any diagnostic results supporting the discharge/admit diagnosis, lab results, radiology results. Response to treatment: the patient's symptoms have markedly improved after treatment. Physician consultation: Willy Turpin MD was contacted at 06:15, regarding patient's condition, and will see patient in office. 06:56 Refusal of service: The patient/guardian displays adequate decision making capability [facility] and despite a detailed discussion of alternatives, benefits, risks, and consequences refuses: Admission to the hospital for further work-up and treatment. ED course: Feels better, NAD, VSS, no focal neurological deficits. Awake, alert, and oriented x 3. Discussed test results and findings with patient and her . They report that the findings are chronic issues that patient had for a while including the CT head/neck, and left knee. She has also had the hypoglycemia, increased WBC's, and UTI. Patient adamantly requests to be discharged from the ED at this time and is agreeable with her. Knee finding was discussed with Dr. Turpin who recommended knee immobilizer. Patient will follow up in office.. 04/02 03:40 Order name: Basic Metabolic Panel; Complete Time: 05:05 7 04/02 03:40 Order name: CBC with Diff; Complete Time: 06:25 7 04/02 03:40 Order name: Protime (+inr); Complete Time: 05:05 7 04/02 03:40 Order name: Ptt, Activated; Complete Time: 05:05 7 04/02 03:40 Order name: Troponin (emerg Dept Use Only); Complete Time: 05:05 7 04/02 03:50 Order name: Glucose, Ancillary Testing; Complete Time: 03:58 EDMS 04/02 03:58 Order name: LFT's; Complete Time: 05:05 7 04/02 04:25 Order name: Urine Dipstick--Ancillary (enter results); Complete Time: 05:05 ds4 04/02 04:25 Order name: CBC Smear Scan; Complete Time: 06:25 [facility] 04/02 04:25 Order name: Urine Microscopic Only; Complete Time: 06:45 ds4 04/02 05:03 Order name: Glucose, Ancillary Testing; Complete Time: 05:05 [facility] 04/02 06:32 Order name: Glucose, Ancillary Testing; Complete Time: 06:45 [facility] 04/02 03:40 Order name: Labs collected and sent; Complete Time: 04:08 [facility] 04/02 03:40 Order name: EKG - Nurse/Tech; Complete Time: 04:08 [facility] 04/02 03:47 Order name: Urine Dipstick-Ancillary (obtain specimen); Complete Time: 04:24 [facility] 04/02 03:58 Order name: CT Facial Bones W/O Con [facility] 04/02 04:13 Order name: Knee Left [address] [facility] 04/02 04:49 Order name: Head C Spine Mpr Wo Con [facility] 04/02 06:37 Order name: Urine Culture [facility] 04/02 06:45 Order name: Knee Immobilizer; Complete Time: 06:57 [facility] Administered Medications: 04:07 Drug: D50W 50 ml Route: IVP; Site: right upper arm; mg2 04:09 Follow up: Response: No adverse reaction ll2 04:19 Drug: Tylenol 1000 mg Route: PO; ll2 06:59 Follow up: Response: No adverse reaction ll2 05:42 Drug: Lidocaine (1 %) 10 ml Volume: 20 ml; Route: Infiltration; ll2 06:44 Drug: Macrobid 100 mg Route: PO; ll2 06:49 Follow up: Response: No adverse reaction ll2 Point of Care Testing: Blood Glucose: 04:53 Blood Glucose: 122 mg/dL; ll2 06:33 Blood Glucose: 86 mg/dL; ll2 Ranges: Critical Glucose Levels:Adult <50 mg/dl or >400 mg/dl <40 mg/dl or >180 mg/dl Disposition: 04/02/20 06:52 Discharged to Home. Impression: Fall, Hypoglycemia, UTI, Small Cortical fracture Left Femoral Condyle, Facial Laceration. - Condition is Stable. - Discharge Instructions: Knee Fracture, Adult, Urinary Tract Infection, Adult, Ofmy-yo-Rjkq, Facial Laceration, Pxwd-fr-Pgyh, Fall Prevention in the Home, Xadz-so-Nqmz, Hypoglycemia, Upin-la-Qafd. - Prescriptions for Macrobid 100 mg Oral Capsule - take 1 capsule by ORAL route every 12 hours for 7 days; 14 capsule. - Medication Reconciliation Form, Thank You Letter, Antibiotic Education, Prescription Opioid Use form. - Follow up: Private Physician; When: 1 - 2 days; Reason: Wound Recheck, Worsening of condition, Recheck today's complaints, Continuance of care, Re-evaluation by your physician. Follow up: Willy Turpin MD; When: 1 - 2 days; Reason: Worsening of condition, Recheck today's complaints. - Problem is an acute exacerbation. - Symptoms have improved. Signatures: Dispatcher [employer] EDMS Dutch Medley, RN RN sg Mook Hargrove RN RN jl7 Joselin Ennis, RN RN Skip Romo, RN RN mg2 Pako Lawler RN RN rr5 France Connolly RN RN ll2 Gustavo Chisholm MD MD 7 Corrections: (The following items were deleted from the chart) 04:13 04:00 Musculoskeletal/extremity: Extremities: noted in the right knee: abrasion, ROM: mh7 intact in all extremities, Circulation is intact in all extremities. Pulses: are normal with no appreciated deficits, Sensation intact. Compartment Syndrome exam of affected extremity: is normal. no numbness, no tingling, no sensation deficit, no palor, no weak pulses, Joints: the right knee displays abrasion, mh7 04:22 04:00 Knee Right 3 View+RAD.RAD.BRZ ordered. EDAK EDMS 04:39 03:43 GLUCOSE+C.LAB.BRZ ordered. EDAK EDMS 04:50 03:41 Head C Spine MPR Wo Con+CT.RAD.BRZ ordered. EDAK EDMS 06:51 03:41 TYPE AND SCREEN+BB.LAB.BRZ ordered. EDAK EDMS 07:04 06:52 04/02/2020 06:52 Discharged to Home. Impression: Fall; Hypoglycemia; UTI; Small mh7 Cortical fracture Left Femoral Condyle. Condition is Stable. Forms are Medication Reconciliation Form, Thank You Letter, Antibiotic Education, Prescription Opioid Use. Follow up: Private Physician; When: 1 - 2 days; Reason: Wound Recheck, Worsening of condition, Recheck today's complaints, Continuance of care, Re-evaluation by your physician. Follow up: Willy Turpin; When: 1 - 2 days; Reason: Worsening of condition, Recheck today's complaints. Problem is an acute exacerbation. Symptoms have improved. [facility] 08:25 07:04 04/02/2020 06:52 Discharged to Home. Impression: Fall; Hypoglycemia; UTI; Small jl7 Cortical fracture Left Femoral Condyle; Facial Laceration. Condition is Stable. Discharge Instructions: Knee Fracture, Adult, Urinary Tract Infection, Adult, Eegh-jr-Uzuc, Fall Prevention in the Home, Vjxy-tr-Nooc, Hypoglycemia, Qivc-ao-Werf. Prescriptions for Macrobid 100 mg Oral Capsule - take 1 capsule by ORAL route every 12 hours for 7 days; 14 capsule. and Forms are Medication Reconciliation Form, Thank You Letter, Antibiotic Education, Prescription Opioid Use. Follow up: Private Physician; When: 1 - 2 days; Reason: Wound Recheck, Worsening of condition, Recheck today's complaints, Continuance of care, Re-evaluation by your physician. Follow up: Willy Turpin; When: 1 - 2 days; Reason: Worsening of condition, Recheck today's complaints. Problem is an acute exacerbation. Symptoms have improved. [facility]
--- NOTE | 2020-04-02 06:52 | ER ---
Nurse's Notes [facility] Name: Franci Lange Age: 75 yrs Sex: Female : 1945 Arrival Date: 04/02/2020 Time: 03:29 Bed 6 Private MD: Manfred Pearson R Diagnosis: Fall;Hypoglycemia;UTI;Small Cortical fracture Left Femoral Condyle;Facial Laceration Presentation: 04/02 03:34 Chief complaint: EMS states: Reports she fell trying to get from the wheelchair to the toilet. Pt reports right knee pain and headache. Laceration noted to right eyebrow. Care prior to arrival: None. Mechanism of Injury: Fall out of chair. Trauma event details: Injury occurred in the [facility], Injury occurred: at home. Injury occurred: April 02, 2020. 03:34 Acuity: JAY 3 ea 03:34 Method Of Arrival: EMS: [facility] ea 03:44 Coronavirus screen: At this time, the client does not indicate any symptoms associated ea with coronavirus-19. Ebola Screen: No symptoms or risks identified at this time. Initial Sepsis Screen: Does the patient meet any 2 criteria? No. Patient's initial sepsis screen is negative. Does the patient have a suspected source of infection? No. Patient's initial sepsis screen is negative. Risk Assessment: Do you want to hurt yourself or someone else? Patient reports no desire to harm self or others. Trauma Activation: Alert Physician: ED Physician; Name: ; Notified At: ; Arrived At: Physician: General Surgeon; Name: ; Notified At: ; Arrived At: Physician: Radiology; Name: ; Notified At: ; Arrived At: Physician: Respiratory; Name: ; Notified At: ; Arrived At: Physician: Lab; Name: ; Notified At: ; Arrived At: Historical: - Allergies: 03:44 Aspirin; ea 03:44 cefepime; ea 03:44 CEPHALOSPORINS; ea 03:44 Ciprofloxacin; ea 03:44 Cortisone; ea 03:44 Cortizone-10; ea 03:44 Erythromycin; ea 03:44 IVIG; ea 03:44 PENICILLINS; ea 03:44 Phenobarbital; ea 03:44 Tape; ea - Home Meds: 03:44 sertraline 25 mg Oral tab 1 tab once daily [Active]; amlodipine 10 mg tab 1 tab once ea daily [Active]; clonazepam 0.5 mg Oral tab 1 tab daily [Active]; furosemide 20 mg Oral tab 1 tab nightly [Active]; Levemir 100 unit/mL subcutaneous soln 25 unit nightly [Active]; levothyroxine 88 mcg tab 1 tab once daily [Active]; Novolog 10 units Sub-Q soln before meals [Active]; potassium chloride 10 mEq Oral cpER 1 cap 3 times per day [Active]; prednisone 20 mg Oral tab 1 tab once daily [Active]; pyridostigmine bromide 60 mg Oral tab 1 tab 3 times per day [Active]; ramipril 2.5 mg Oral cap 1 cap once daily [Active]; rosuvastatin 20 mg Oral tab 1 tab nightly [Active]; - PMHx: 03:44 Osteoporosis; Myocardial infarction; Myasthenia Gravis; Hypothyroidism; High ea Cholesterol; Hypertension; Diabetes - IDDM; Depression; CHF; Anxiety; Ankylosing Spondylitis; - PSHx: 04:46 brain shunt; meningioma; neck sx; spinal sx; sg 04:54 Carpal Tunnel Repair; Cholecystectomy; sg - Immunization history:: Adult Immunizations up to date. - Immunization history: Last tetanus immunization: unknown. - Social history:: Smoking status: . Screenin:37 Abuse screen: Denies threats or abuse. Nutritional screening: No deficits noted. ea Tuberculosis screening: No symptoms or risk factors identified. Fall Risk Fall in past 12 months (25 points). Primary Survey: 03:37 NO uncontrolled hemorrhage observed. A: The patient is alert. Airway: patent. ea Breathing/Chest: Respiratory pattern: regular, Respiratory effort: spontaneous. Circulation: Skin color: pink. Disability Alert. Exposure/Environment: All clothing and personal items were removed. Forensic evidence collection is not deemed to be indicated at this time. Items placed in patient belonging bag. There is no evidence of uncontrolled external bleeding. Obvious injury(ies) are noted at this time: laceration to right eye brow. 07:00 Reassessment Breathing/Chest Respiratory pattern Regular Respiratory effort Spontaneous jl7 Unlabored Chest inspection Symmetrical. Secondary Survey: 03:38 Musculoskeletal: Circulation, motion, and sensation intact. ea Assessment: 03:41 General: Appears in no apparent distress. Behavior is appropriate for age. Pain: ea Complains of pain in middle aspect of right eyebrow and outer aspect of right eyebrow. 04:19 Reassessment: Patient is alert, oriented x 3, equal unlabored respirations, skin ll2 warm/dry/pink. 05:45 Reassessment: ERD to bedside closing wound. ll2 05:57 Reassessment: aided pt to bedpan urine obtained, at bedside. ll2 06:42 Reassessment: [facility] director is June. 06:58 Reassessment: ERD notified need for transportation, legal secretary receptionist notified. ll2 07:12 Reassessment: Awaiting transportation via EMS back to assisted living facility. jl7 Vital Signs: 03:30 BP 136 / 83; Pulse 74; Resp 19; Pulse Ox 99% on R/A; ll2 03:44 BP 136 / 83; Pulse 74; Resp 18; Temp 97.7; Pulse Ox 99% on R/A; Weight 90.72 kg; Height ea 4 ft. 11 in. (149.86 cm); 04:30 BP 141 / 44; Pulse 67; Resp 18; Pulse Ox 96% on R/A; ll2 06:32 BP 116 / 75; Pulse 83; Resp 23; Pulse Ox 97% on R/A; ll2 03:44 Body Mass Index 40.39 (90.72 kg, 149.86 cm) ea Louisa Coma Score: 03:40 Eye Response: spontaneous(4). Verbal Response: oriented(5). Motor Response: obeys ea commands(6). Total: 15. Trauma Score (Adult): 03:40 Eye Response: spontaneous(1); Verbal Response: oriented(1); Motor Response: obeys ea commands(2); Systolic BP: > 89 mm Hg(4); Respiratory Rate: 10 to 29 per min(4); Louisa Score: 15; Trauma Score: 12 ED Course: 03:29 Patient arrived in ED. am2 03:29 Manfred Pearson MD is Private Physician. am2 03:32 Gustavo Chisholm MD is Attending Physician. 7 03:37 Triage completed. ea 03:40 Patient maintains SpO2 saturation greater than 95% on room air. Thermoregulation: warm ea blanket given to patient. 03:41 Patient has correct armband on for positive identification. Placed in gown. Bed in low ea position. Call light in reach. Side rails up X2. Pulse ox on. NIBP on. 03:42 France Connolly, RN is Primary Nurse. ll2 03:45 Arm band placed on left wrist. Patient placed in an exam room, on a stretcher, on pulse ea oximetry. 04:05 Inserted saline lock: 24 gauge in right upper arm, using aseptic technique. Blood mg2 collected. 04:24 Knee Left 3 View XRAY In Process Unspecified. EDMS 04:56 Notified ED physician of a critical lab result(s). 49mg/dl with order made and carried rr5 out. 05:04 CT Facial Bones W/O Con In Process Unspecified. EDMS 05:04 Head C Spine Mpr Wo Con In Process Unspecified. EDMS 06:43 Urine Culture Sent. ll2 06:46 Willy Thibodeaux MD is Referral Physician. 7 07:21 Primary Nurse role handed off by France Connolly, RENAY jl7 07:21 Mook Hargrove RN is Primary Nurse. jl7 08:21 No provider procedures requiring assistance completed. IV discontinued, intact, jl7 bleeding controlled, No redness/swelling at site. Pressure dressing applied. Administered Medications: 04:07 Drug: D50W 50 ml Route: IVP; Site: right upper arm; mg2 04:09 Follow up: Response: No adverse reaction ll2 04:19 Drug: Tylenol 1000 mg Route: PO; ll2 06:59 Follow up: Response: No adverse reaction ll2 05:42 Drug: Lidocaine (1 %) 10 ml Volume: 20 ml; Route: Infiltration; ll2 06:44 Drug: Macrobid 100 mg Route: PO; ll2 06:49 Follow up: Response: No adverse reaction ll2 Point of Care Testing: Blood Glucose: 04:53 Blood Glucose: 122 mg/dL; ll2 06:33 Blood Glucose: 86 mg/dL; ll2 Ranges: Outcome: 06:52 Discharge ordered by . 7 08:23 Discharged to [facility]. Transfer form completed. 7 08:23 Condition: stable 08:23 Patient's length of stay in the Emergency Department was greater than 2 hours. transportationPatient's length of stay extended due to 08:24 Discharge instructions given to [facility], Instructed on discharge instructions, jl7 follow up and referral plans. medication usage, Demonstrated understanding of instructions, follow-up care, medications, Prescriptions given X 1. 08:25 Patient left the ED. jl7 Signatures: Dispatcher [employer] EDMS Dutch Medley, RN RN Mook Medina RN RN jl7 Nyasia Felix am2 Joselin Ennis RN RN Skip Romo RN RENAY mg2 Pako Lawler RN RN rr5 France Connolly RN RN 2 Gustavo Chisholm MD MD 7
[2020-04-02 08:35] VITALS: TEMP 97.7
[2020-04-02 08:38] VITALS: BP 116/75; O2SAT 97
--- NOTE | 2020-04-02 09:51 | RAD REPORT ---
EXAM DESCRIPTION: Knee Left 3 View CLINICAL HISTORY: Pain after trauma. COMPARISON: None. TECHNIQUE: AP, lateral and oblique views of the left knee. FINDINGS: Diffuse subcutaneous edema. No joint effusion. There is a nondisplaced fracture along the medial cortex of the medial femoral condyle of the distal left femur. There is no dislocation. There is mild narrowing of the medial compartment. There are bulky patellar osteophytes. Bone mineralization is normal. No foreign body. No subcutaneous emphysema. IMPRESSION: 1. Small cortical fracture along the medial femoral condyle of the distal left femur. Diffuse soft tissue edema. Electronically signed by: Miriam Tierney DO 04/02/2020 5:23 AM GAS SINGER Due to temporary technical issues with the PACS/Fluency reporting system, reports are being signed by the in house radiologist without review as a courtesy to ensure prompt reporting. The interpreting r adiologist is fully responsible for the content of the report.
--- NOTE | 2020-04-02 10:00 | RAD REPORT ---
EXAM DESCRIPTION: Head C Spine Mpr Wo Con CLINICAL HISTORY: FELL/pain COMPARISON: 02/03/2020 TECHNIQUE: Axial CT of the head obtained from the skull apex to the skull base without contrast. Axi al CT images of the cervical spine obtained from the skull base through the thoracic inlet. Sagittal and coronal reformatted images available. FINDINGS: CT head: No acute intracranial hemorrhage identified. Redemonstrated high density likely extra-axial mass sang ing at the inferior aspect of the frontal lobe measuring 3.9 cm in greatest dimension. This is relati vely stable. Left frontal approach ventriculostomy catheter tip in the anterior horn of the right lat eral ventricle. Stable right frontal encephalomalacia with The ventricular system is not dilated. S cattered areas of hypodensity throughout the remaining supratentorial white matter are nonspecific an d may represent sequela of chronic small vessel ischemic change The visualized paranasal sinuses and the mastoids are clear. Stable right-sided craniotomy. Stable hy perostosis of the skull base. Visualized orbits and globes are unremarkable. Cervical CT: Straightening of the cervical lordosis may be secondary to patient positioning. Posterior fixation of the cervical spine at C5-T1. Anterior fixation of the cervical spine at C6/C7. Fixation screws in C5 do not definitely appear to be within the bony articular facets at C5. No definite abnormality of th e remaining hardware. The atlantoaxial, atlantodental, and occipitoatlantal intervals are preserved. No acute fracture identified. Prevertebral soft tissues are unremarkable. There are multilevel bridging anterior osteophytes. Severe facet arthropathy. Laminectomies at C6,C7, and T1. Multilevel loss of intervertebral disc height. Visualized skull base is intact. No fracture of the visualized facial bones. Visualized mastoid air c ells and paranasal sinuses are well aerated. Visualized thyroid is unremarkable. No cervical lymphadenopathy. No pneumothorax in the visualized lung apices. Carotid artery atherosclerosis. IMPRESSION: 1. No acute intracranial abnormality. 2. No acute fracture of the cervical spine 3. Redemonstrated likely extra-axial mass arising at the inferior aspect of the frontal lobe measur ing 3.9 cm. Stable left frontal approach ventriculostomy catheter. No hydrocephalus. 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 4. Interval posterior fixation of the cervical spine at C5-T1 as well as anterior fixation at C6/C7 . The C5 posterior fixation screws do not appear to be anchored within osseous structures. Correlatio n for hardware malfunction is recommended. Remaining hardware demonstrates no definite abnormalities. This exam was performed according to our departmental dose-optimization program, which includes autom ated exposure control, adjustment of the mA and/or kV according to patient size and/or use of iterati ve reconstruction technique. Electronically signed by: Isaiah Tony 04/02/2020 5:30 AM MANAGER TRANSPLANT Due to temporary technical issues with the PACS/Fluency reporting system, reports are being signed by the in house radiologist without review as a courtesy to ensure prompt reporting. The interpreting r adiologist is fully responsible for the content of the report.
--- NOTE | 2020-04-02 10:01 | RAD REPORT ---
EXAM DESCRIPTION: CT Maxillofacial Without Intravenous Contrast CLINICAL HISTORY: TRAUMA TECHNIQUE: Axial computed tomography images of the face without intravenous contrast. Sagittal and coronal reformatted images were created and reviewed. This CT exam was performed using one or more of the following dose reduction techniques: automated exposure control, adjustment of the mA and/o r kV according to patient size, and/or use of iterative reconstruction technique. COMPARISON: 11/21/2019. FINDINGS: Bones/joints: Postoperative changes right temporal bone. Stable hypertrophic changes c hanges of the skull base. No fracture or erosion. Soft tissues: Visualized portions appear normal. Orbits: No abnormality noted. Sinuses: No layering fluid in the visualized portions of the paranasal sinuses. IMPRESSION: Chronic changes as above. No acute disease. Electronically signed by: Luli Araujo MD 04/02/2020 5:15 AM PEDIATRIC SPEECH THERAPIST Due to temporary technical issues with the PACS/Fluency reporting system, reports are being signed by the in house radiologist without review as a courtesy to ensure prompt reporting. The interpreting r adiologist is fully responsible for the content of the report.
== END 2020-04-02 08:25 | disposition home or self-care (01) ==
LOC: ER 03:28
PROC: 0JQ10ZZ Repair Face Subcutaneous Tissue and Fascia, Open Approach (ICD-10-PCS; principal; 2020-04-02)
DX: S01.81XA Laceration without foreign body of other part of head, initial encounter (principal); S72.432A Displaced fracture of medial condyle of left femur, initial encounter for closed fracture; N39.0 Urinary tract infection, site not specified; W05.0XXA Fall from non-moving wheelchair, initial encounter; Y93.89 Activity, other specified; Y92.9 Unspecified place or not applicable; Z79.82 Long term (current) use of aspirin; I10 Essential (primary) hypertension; E11.9 Type 2 diabetes mellitus without complications; E03.9 Hypothyroidism, unspecified; F41.8 Other specified anxiety disorders; I50.9 Heart failure, unspecified; E78.00 Pure hypercholesterolemia, unspecified; Z88.0 Allergy status to penicillin; Z88.1 Allergy status to other antibiotic agents; Z88.3 Allergy status to other anti-infective agents; Z88.5 Allergy status to narcotic agent; Z88.6 Allergy status to analgesic agent; Z88.8 Allergy status to other drugs, medicaments and biological substances; Z91.048 Other nonmedicinal substance allergy status
CPT/HCPCS: 36415; 70450; 70486; 72125; 76377; 80048; 80076; 81003; 81015; 82947; 84484; 85025; 85610; 85730; 87086; 87088; 93005; 96374; 99285; G0390

== ENCOUNTER 2020-04-11 16:14 | Inpatient (IN) | payer OTHER ==
--- OUTSIDE RECORDS SUMMARY | 2020-04-11 16:19 | XMS REPORT | Clinical Summary ---
:1945 Author Organization [facility] Address [address] [place] [address] Care Team Providers Name Role Phone Ayush [...] PaezShirley rollins MD Agrawal, Neeraj, MD after 04/11/2019 Social History Tobacco Use Types Packs/Day Years [...] 65+ YRS (1 of 1 - 01/10/2012 [id number]) MEDICARE ANNUAL WELLNESS (YEAR 2 or [...] are i n the results section. SARS-COV2/RT-PCR ([facility] Routine 02/12/2020 3:39 R esults for this & REF LABS) AM CDT procedure are i n the results section. after 04/11/2019 Results EKG-SCANNED (02/22/2020 5:13 PM CDT) Narrative Performed At This result has an attachment that is no t available. POC-Glucose meter (02/15/2020 1:09 PM CDT)Only the most recent of13 results within the time period is included. POC-Glucose Meter 101Comment: : 70 - 110 mg/dL [facility] TESTED AT [address], [id number]: Rim Fire Charger Operator/Technic radha ID = [id number] for LENNOX OSBORN Specimen Blood Performing Organization Address City/State/Zipcode Phone Number [address] [address] CENTER CBC with platelet count + automated diff (02/15/2020 4:38 AM CDT)Only the most recent of3 resultswithin the time period is included. Pathologist Sig nature WBC 19.1 (H) 3.5 - 10.5 [facility] K/L [facility] RBC 4.85 3.93 - 5.22 [facility] M/[facility] Hemoglobin 11.8 11.2 - 15.7 [facility] GM/DL [facility] Hematocrit 40.3 34.1 - 44.9 % [facility] MCV 83.1 79.4 - 94.8 fL [facility] MCH 24.3 (L) 25.6 - 32.2 pg [facility] MCHC 29.3 (L) 32.2 - 35.5 [facility] GM/DL [facility] RDW 16.7 (H) 11.7 - 14.4 % [facility] Platelets 154 150 - 450 K/CU [facility] MM [facility] MPV 12.4 (H) 9.4 - 12.3 fL [facility] nRBC 0 0 - 0 /100 WBC [facility] % Neutros 82 % [facility] % Lymphs 12 % [facility] % Monos 5 % [facility] % Eos 0 % [facility] % Baso 0 % [facility] # Neutros 15.53 (H) 1.56 - 6.13 [facility] # Lymphs 2.34 1.18 - 3.74 [facility] # Monos 0.92 (H) 0.24 - 0.36 [facility] # Eos 0.06 0.04 - 0.36 [facility] # Baso 0.03 0.01 - 0.08 [facility] Immature 1 0 - 1 % [facility] Granulocytes-Relativ [facility] e CENTER Specimen Blood Performing Organization Address City/State/Zipcode Phone Number [facility] [address] [place] [address] CENTER Urinalysis w/Microscopic + Reflex to Culture (02/14/2020 3:04 PM CDT) Color, UA Yellow [facility] Clarity, UA Hazy [facility] Specific [place], 1.028 1.001 - 1.035 [facility] pH, UA 6.0 5.0 - 8.0 [facility] Protein, UA 30 mg/dL (A) Negative [facility] Glucose, UA Negative Negative [facility] Ketones, UA Negative Negative [facility] Bilirubin, UA Negative Negative [facility] Blood, UA Negative Negative [facility] Nitrite, UA Negative Negative [facility] Leukocytes, UA Moderate (A) Negative [facility] Urobilinogen, UA 0.2 0.2 - 1.0 mg/dL [facility] RBC, UA 2 /HPF [facility] WBC, UA 28 /HPF [facility] Mucus Occasional [facility] Squam Epithel, UA 1 /HPF [facility] Hyaline Casts, UA 1 /LPF [facility] Ca Oxalate Jagruti, Occasional [facility] Specimen Source [facility] Specimen Urine Narrative Performed At Rim Fire Charger Operator ID - [auto] [facility] Rim Fire Charger Operator ID - radha Performing Organization Address City/State/Zipcode Phone Number [facility] [address] [place] [address] [place] Urine culture (02/14/2020 3:04 PM CDT) Pathologist Sig nature Result See comment [facility] Specimen Urine Narrative Performed At >100,000 col/mL enteric organisms of >3 [facility] types. No further workup performed. Multiple organisms suggestive of colonization or contamination. Repeat collection recommended. Performing Organization Address City/State/Zipcode Phone Number [facility] [address] [place] [address] CENTER [place] esoph swallow funct [...] Report Verified Date/Time: 02/14/2020 12:20:00 Reading Location: [address] Reading Room Procedure Note Interface, External [...] Verified Date/Time: 02/14/2020 1 2:20:00 Reading Location: [address] Reading Room Performing Organization Address City/State/Zipcode [...] Report Verified Date/Time: 02/13/2020 12:51:24 Reading Location: [facility] y Reading Room Procedure Note Interface, [...] Verified Date/Time: 02/13/2020 1 2:51:24 Reading [facility] Performing Organization Address City/State/Zipcode Phone Number GE Tier 3 XR chest 1 view portable / bedside [...] Report Verified Date/Time: 02/12/2020 14:59:34 Reading Location: [facility] C013Y CT Body R eading [...] Verified Date/Time: 02/12/2020 1 4:59:34 Reading Location: [facility] C013Y CT Body R eading Room Performing Organization Address City/State/Zipcode Phone Number [facility] TSH/Free T4 If Indicated (02/12/2020 10:54 AM CDT) Pathologist Sig critical access hospital TSH 1.158 0.350 - 4.940 uIU/mL [facility] Specimen Blood Performing Organization Address City/[facility] Phone Number [facility] [address] [place] [address] Lactate dehydrogenase (LDH) (02/12/2020 10:54 AM CDT) Pathologist [facility] nature LDH 401 (H)Comment: 125 - 220 U/L [facility] Specimen slightly - DRAKE hemolyzed Specimen Blood Performing Organization Address City/[facility] Services[facility] Phone Number [facility] [address] [place] [address] Vitamin B12 (02/12/2020 10:54 AM CDT) Pathologist Sig nature Vitamin B12 486 213 - 816 pg/mL [facility] Specimen Blood Performing Organization Address [facility] Servicescowv Phone Number [facility] [address] [place] [address] Creatine Kinase (CK) (02/12/2020 10:54 AM CDT) Pathologist Sig nature Total CK 47 29 - 200 U/L [facility] Specimen Blood Performing Organization Address [facility] Services[facility] Phone Number [facility] [address] [place] [address] Comprehensive metabolic panel (02/12/2020 10:54 AM CDT) Protein, Total 4.8 (L)Comment: 6.0 - 8.3 [facility] Specimen slightly gm/dL [facility] hemolyzed Albumin 2.9 (L)Comment: 3.5 - 5.0 [facility] Specimen slightly g/dL [facility] hemolyzed Alkaline 174 (H) 40 - 150 U/L [facility] Phosphatase [facility] Total Bilirubin 0.3Comment: 0.2 - 1.2 [facility] Specimen slightly mg/dL [facility] hemolyzed Sodium 140 136 - 145 [facility] meq/L [facility] Potassium 3.6Comment: 3.5 - 5.1 [facility] Specimen slightly meq/L [facility] hemolyzed Chloride 105 98 - 107 [facility] meq/L [facility] CO2 28 22 - 29 meq/L [facility] BUN 11 7 - 21 mg/dL [facility] Creatinine 0.48 (L)Comment: 0.57 - 1.25 [facility] Specimen slightly mg/dL [facility] hem[facility]zed Glucose 95 70 - 105 [facility] mg/dL [facility] Calcium 8.2 (L) 8.4 - 10.2 [facility] mg/dL [facility] AST 32Comment: 5 - 34 U/L [facility] Specimen slightly [facility] hemolyzed ALT 31Comment: 6 - 55 U/L [facility] Specimen slightly [facility] hemolyzed EGFR 127Comment: mL/min/1.73 [facility] ESTIMATED GFR IS sq m [facility] NOT ACCURATE CREATININE CLEARANCE IN PREDICTING GLOMERULAR FILTRATION RATE. ESTIMATED GFR IS NOT APPLICABLE FOR DIALYSIS PATIENTS. Specimen Blood Performing Organization Address City/State/Zipcode Phone Number [facility] [address] [place] [address] SARS-CoV2/RT-PCR (Asymptomatic ONLY) (02/12/2020 3:39 AM CDT) SARS-COV2/RT-PCR Negative Not Detected, [facility] Negative, See [facility] external report CENTER for linked test SARS-COV-2 [facility] PERFORMING LAB [facility] Specimen Other - Nasopharyngeal wall structure (b josseline structure) Narrative Performed At Negative result for this test determines that [facility] SARS-CoV-2 RNA was not present in [...] the Act. Fact Sheet for Healthcare Providers: https://www.[employer]/sites/default/files/pro duct/documents/Fact_Sheet_HC_Providers_Lyra_SA RS-CoV-2.pdf Fact Sheet for Healthcare Patients: https://www.[employer]/sites/default/files/pro duct/documents/Fact_Sheet_Patients_Lyra_SARS-C oV-2.pdf Performing Laboratory: [address] [place] [address] Performing Organization Address City/State/Zipcode Phone Number [address] [address] CENTER after 04/11/2019 Insurance Payer Benefit Plan / Subscriber ID Effective Dates Phone Addre ss Type Group AETNA - AETNA MEDICARE [id number] 2013-Presen [phone] MEDICARE MGD HMO POS PPO t 2 [id number] [place] [address] CDC REVIEW CDC REVIEW [id number] 2020-[place] [address] Advance Directives For more information, please contact: [phone] Code Status Date Activated Date Inactivated Comments Full Code 02/11/2020 10:24 PM 02/15/2020 6:38 PM This code status was determined by: Patient Full Code 02/13/2014 10:17 AM 02/13/2014 6:26 PM This code status was determined by: Patient
--- OUTSIDE RECORDS SUMMARY | 2020-04-11 16:39 | XMS REPORT | Continuity of Care Document ---
:1945 Author Organization [facility] Medical Information PhotoSynesi Care Team Providers Name Role Phone [facility] Medical Information [facility] Unavailable Un available Problems Problem Status Onset Classification Date Comments Sourc e Date Reported MYASTHENIA GRAVIS Active [facility] WITH ACUTE 020 Medical C enter EXACERBATIO C-7,T-4 Active [facility] FX,ESOPHAGEAL TEAR 020 M edical Center MYASTHENIA GRAVIS Active [facility] WEAKNESS 019 Medical Ce nter MYASTHENIA GRAVIS [place] [address] Medical Ce nter Dorsalgia, [facility] unspecified 019 9 Medical Center DIABETIC Active [facility] 019 Medical Ce nter DYSPHAGIA Active [facility] 019 Medical Ce nter RESOLVED VISION Active [facility] emorial LOSS IN LEFT EYE 019 Cit [place] SLURRED SPEECH [place]ter STROKE SYMPTOMS Active [facility] [place]as 019 Medical Ce nter Benign neoplasm of Active Problem Data M ischer cerebral meninges 013 9 migrated Ne uro,[facility] (disorder) from [facility], OPID on 01/23/[address]. [facility] BAD REACTION TO Active [facility] [place] MEDICATION 011 Medical C enter DEHYDRATION,PAIN Active [facility] CONTROL 011 Medical Ce nter LEG CRAMPS Active [facility] 011 Medical Ce nter DEHYDRATION Active [facility] 011 Medical Ce nter SDH Active 011 Rehabilita tion DM - Diabetes Active Problem [place] mellitus 011 1 Medical Ce nter HYDROCEPHALUS Active [place] 011 Medical Ce nter BRAIN MASS Active 011 Rehabilita tion BRAIN MASS/AWAKE Active [place] [address] Medical Ce nter LIFE FLIGHT Active [place] [address] Medical Ce nter Altered mental Active Problem Misch er status (finding) 9 Fran ro,[facility], [place] Kelly, [facility] 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 Mis binta eye (disorder) 0 [facility] ,[facility], [place] Azul, [place] Kelly,M [facility] Coronary Active Problem Mischer arteriosclerosis 0 Fran ro,[facility] (disorder) [facility], [place] Azul, [place] Kelly, [facility] Craniotomy Active Problem Mischer (procedure) 9 [facility], [place] Kelly, [facility] Diabetes mellitus Resolved Problem Mi edwardo (disorder) 0 [facility], [place] Azul, [place]ON[place] Kelly,M [facility] Heart failure Resolved Problem systilic Mische r (disorder) 0 [facility], [place] Azul, DOMON[place] Kelly, [facility] Hypertensive Active Problem Mischer disorder, systemic 0 N euro,[facility] arterial Medical (disorder) Center, [place] Azul, DOMON[place] Kelly, [facility] Hypothyroidism Active Problem Misch er (disorder) 0 [facility], [place] Azul, DOMON[place] Kelly,M [facility] Itching (finding) Active Problem Mi edwardo 9 [facility], [place] Kelly,M [facility] Intracranial Active Problem Mischer meningioma 9 [facility] (disorder) [facility], [place] Kelly,M [facility] Morbid obesity Resolved Problem Misch er (disorder) 0 [facility], [place] Azul, DOMONI[place] Kelly,M [facility] Obstructive sleep Resolved Problem Mi edwardo apnea syndrome 0 [facility] ,[facility] (disorder) [facility], [place] Azul, DOMONIQUE Kelly,M [facility] Pain (finding) Active Problem Misch er 9 Neuro,[facility], [place],M [facility] itgasper Visual disturbance Active Problem ischer (disorder) 9 Neuro,[facility], [place] Kelly,M [facility] ity Illness, Memoria l unspecified 9 City Myasthenia gravis [facility] without (acute) 0 [facility] exacerbation Myasthenic crisis Resolved Problem [facility] (disorder) 0 Medical Center, [place] Azul Diabetes mellitus Resolved Problem [facility] type 2 (disorder) 0 [facility], [place] Azul Body mass index Active Problem [facility] 40+ - severely 0 Medic al obese (finding) Cent er, [place] Azul Myasthenia gravis Active Problem [facility] (disorder) 0 Medical Center, [place] Azul Recurrent falls Active Problem [facility] (finding) 0 Medical Center, [place] Azul Type II diabetes Active Problem [facility] mellitus 0 Medical [facility] Center, [place] (finding) Jorge Alberto Altered mental Active Problem [place] status 1 Medical Ce nter Craniotomy Active Problem [place] [address] Medical Ce nter HTN - Hypertension Active Problem [place] [address] Medical Ce nter Lethargic Inactive Problem [place] [address] Medical Ce nter Meningioma of Active Problem [place] as brain 1 Medical Ce nter Visual disturbance Active Problem [place] [address] Medical Ce nter Itching Active Problem [place] [address] Medical Ce nter Pain Active Problem [place] [address] Medical Ce nter 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 0 Medic al Center level of cervical spinal cord, initial encounter Unspecified [facility] fracture of fourth 0 M edical Center thoracic vertebra, initial encounter for closed fracture Contusion of other [facility] specified 0 Medical Ce nter intrathoracic organs, initial encounter Unspecified [facility] fracture of second 0 M edical Center lumbar vertebra, initial encounter for closed fracture 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 0 M edical Center failure Delirium due to [place] known 0 Medical Ce nter physiological condition Acute [facility] posthemorrhagic 0 [facility] anemia [place]cephalus, [place] unspecified 0 Medical Center Unspecified [facility] protein-calorie 0 [facility] malnutrition Body mass index [place] (BMI) 40.0-44.9, 0 Med ical [place] adult Ventricular [facility] tachycardia 0 Medical Center Alkalosis [facility] 0 Medical Ce nter Encephalopathy, [place] unspecified 0 Medical Center Gastrointestinal [facility] hemorrhage, 0 Medical Center unspecified Unspecified [facility] displaced fracture 0 M edical Center of sixth cervical vertebra, initial encounter for closed fracture Unspecified [facility] displaced fracture 0 M edical Center of seventh cervical vertebra, initial encounter for closed fracture Unspecified [facility] displaced fracture 0 M edical Center of fourth cervical vertebra, initial encounter for closed fracture Hypothyroidism, [place] unspecified 0 Medical Center 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 0 Medical C enter Age-related [facility] osteoporosis 0 Medical Center without current pathological fracture Hypertensive heart [facility] disease with heart 0 edical Center failure Dysphagia, [facility] unspecified 0 Medical Center Atherosclerotic [place] heart disease of 0 [facility] ical [place] platinum coronary artery without angina pectoris Physical restraint [facility] status 0 Medical Ce nter Unspecified [facility] dementia without 0 [facility] ica 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 behavioral 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[facility]) [facility] 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 Hypokalemia [facility] 0 Medical Ce nter Obstructive sleep [facility] apnea (adult) 0 Medica [facility] (pediatric) Other disorders of [facility] phosphorus 0 Medical C enter metabolism Constipation, [place] as unspecified 0 Medical Center Fall on same level [facility] [place] from slipping, 0 Medic al Center tripping and stumbling without subsequent striking against object, initial encounter Other acute [facility] postprocedural 0 Medic al Center pain Acute pain due to [facility] trauma 0 Medical Ce nter Major depressive [facility] disorder, single 0 [facility] ical Center episode, unspecified Abrasion of right [facility] upper arm, initial 0 edical Center encounter Type 2 diabetes [place] mellitus with 0 Medica l Center hyperglycemia Morbid (severe) [place] obesity due to 0 Medic al Center excess calories Type 2 diabetes [place] mellitus with 0 Medica l Center hypoglycemia without coma Hyperlipidemia, [place] unspecified 0 Medical Center Chronic [facility] obstructive 0 Medical Center pulmonary disease, unspecified Hypomagnesemia [place] 0 Medical Ce nter Unqualified visual [facility] loss, right eye, 0 [facility] ical Center normal vision left eye Atherosclerosis of [facility] aorta 0 Medical Ce nter Spinal stenosis, [facility] cervical region 0 [facility] roger Center Repeated falls [facility] [place] 0 Medical Ce nter Laceration without [facility] foreign body of 0 [facility] roger [place] right forearm, initial encounter Presence of [facility] cerebrospinal 0 [facility] [place] fluid drainage device Personal history [facility] of sudden cardiac 0 Md dical Center arrest History of falling [facility] [place] 0 Medical Ce nter Family history of [facility] diabetes mellitus 0 Md dical [place] Personal history [facility] of benign neoplasm 0 edical [place] of the brain Other [facility] [place] (current) drug 0 Medic al Center therapy BRAIN NEOPLASM NOS Active M H Rehabilita [facility]ion ADMINISTRTVE [place] [facility] COMMUNICAT Active [facility] HYDROCEPHALUS Medica l Center SUBDURAL Active HEMORRHAGE Rehabilit ation DEHYDRATION Active [place] [facility] MYASTHENIA GRAVIS Active [facility] WITHOUT (ACUTE) Medi roger Center EXACER SLURRED SPEECH [place] Medical [place]ter ILLNESS, Active Memoria l UNSPECIFIED [facility] OCULAR PAIN, RIGHT Active [facility] EYE [facility] UNQUALIFIED VISUAL Active [facility] LOSS, LEFT EYE, [facility] ALEXIA UNSP DISP FX OF Active Madelyn cottrell [facility] CERVICAL [facility] ical Center VERTEBR Medications Medication Details Route Status Patient Ordering Order Source Instructions Provider Date lansoprazole 3 30 mg = 10 mL, Active [place] mg/mL oral PO, BID-Before 2019 Medica l suspension Meals, # 600 Center mL, 0 Refill(s) pregabalin 25 mg 25 mg = 1 cap, Active [place] oral capsule PO, Q8H-01, 0 2020 Medic al Refill(s) [place] Sulfamethoxazole 1 tab, PO, No Longer [place] 800 MG / [id number], X 1 Active 2019 Medical Trimethoprim 160 [...] mg 5 mg = 1 tab, Active [facility] oral tablet GT, Daily, 0 2020 Medical Refill(s) [place] Sulfamethoxazole 1 tab, PO, Inactive [facility] 800 MG / [id number], 0 2020 Medical Trimethoprim 160 Refill(s) Cente r MG Oral Tablet [Bactrim] Insulin Glargine 15 unit, Inactive [place] 100 UNT/ML SUB-Q, BID, 0 2020 Medical Injectable Refill(s) [place] Solution thiamine 100 mg 200 mg = 2 Active [place] oral tablet tab, PO, 2020 Medical Daily, 0 Center Refill(s) rosuvastatin 10 mg 10 mg = 1 tab, Active [place] oral tablet PO, Bedtime, 0 2020 Medic al Refill(s) [place] predniSONE 20 mg 20 mg = 1 tab, Inactive [place] oral tablet PO, Daily, 0 2020 Medical Refill(s) [place] Calcium Chloride 500 mL, 500 Inactive [place] 0.0014 MEQ/ML / ml/hr, Infuse 2019 Md dical Potassium Chloride Over: 1 hr, C enter 0.004 MEQ/ML / Route: IV, Sodium Chloride 500, Drug 0.103 MEQ/ML / form: INJ, Sodium Lactate ONCE, 0.028 MEQ/ML Priority: Injectable STAT, Dosing Solution Weight 84.545 kg, Start date: 02/27/20 7:19:00 CDT, Stop date: 02/27/20 7:19:00 CDT, 0 heparin Notes: porcine [place] Longer [place] heparin Active [address] [place] [address] heparin Route: MISC, Inactive [place] Drug form: [facility] Medical INJ, ONCE, Center Dosing Weight 84.545, [...] Plasmapheresis Calcium Gluconate 2.5 gm, Route: Inactive [place] IV, ONCE, 2019 Medical Dosing Weight Center 84.545, kg, Start date: 02/25/20 9:32:00 CDT, Stop date: 02/25/20 9:32:00 CDT Calcium Gluconate Notes: WASTE: Inactive [place] F/P - Sink; E 2019 [facility] Trash Bin albumin human 5% Notes: LOT#: Inactive [facility] intravenous M 2019 Medic al solution fg: Center (Same as: Albuminar) "blood product derivative&quo t; WASTE: F/P - Red; E -Red MEDICATION WASTE Product Size: 25 gm Product Wasted: _0__ gm Sulfamethoxazole 1 tab, Route: No Longer [place] 800 MG / PO, Drug Form: 2019 Medical Trimethoprim 160 TAB, Dosing Mitch ter MG Oral Tablet Weight 84.545, [Bactrim] kg, [id number], Start date: 02/22/20 20:00:00 CDT, Stop date: 02/28/20 8:00:00 CDT, 0 insulin glargine 30 unit, No Longer [place] Route: SUB-Q, 2019 Medical Drug form: Center SOLN, BID, Start date: 02/22/20 9:00:00 CDT, Duration: 30 day, Stop date: 03/22/20 17:00:00 CDT, 0 Lactated Ringers 1,000 mL, No Longer [place] IV 1,000 mL Rate: 100 2019 Medical [...] 0 Glucagon 1 mg, Route: No Longer [place] IM, Drug form: Active 2019 Medical PDR/INJ, PRN, Center Dosing Weight 84.545, kg, PRN Blood Glucose Results, Start date: 02/21/20 20:57:00 CDT, Duration: 30 day, Stop date: 03/22/20 20:56:00 CDT, 0 Insulin Lispro Notes: (Same No Longer [place] as: Humalog) Active 2019 Medical Roll in palms Center of hands gently; Do not shake vigorously. WASTE: F/P - Black; E - Municipal Trash Bin Stable for 28 days at room temperature. Expires in days from Date Insulin regular Notes: (Same Inactive [facility] as: Humulin R) 2019 Medical Roll in palms Center of hands gently; Do not shake vigorously. WASTE: F/P - Black; E - Municipal Trash Bin Stable for 31 days at room temperature Expires in days from Date Insulin regular Notes: (Same Inactive [facility] as: Humulin R) 2019 Medical Roll in palms Center of hands gently; Do not shake vigorously. WASTE: F/P - Black; E - Municipal Trash Bin Stable for 31 days at room temperature Expires in days from Date albumin human 5% Notes: LOT#: Inactive [facility] intravenous M 2019 Medic al solution fg: Center (Same as: Albuminar) "blood product derivative&quo t; WASTE: F/P - Red; E -Red MEDICATION WASTE Product Size: 25 gm Product Wasted: _0__ gm Calcium Gluconate Notes: WASTE: Inactive [facility] F/P - Sink; E 2019 Medical - Municipal [facility] Trash Bin albumin human 5% Notes: LOT#: Inactive [facility] intravenous M 2019 Medic al solution fg: Center (Same as: Albuminar) "blood product derivative&quo t; WASTE: F/P - Red; E -Red MEDICATION WASTE Product Size: 25 gm Product Wasted: ___ gm Lyrica Notes: (Same No Longer [place] as: Lyrica) Active 2019 Medical Center [place] 500 Notes: 500mg [place] elemental 2019 [facility] calcium = Center 1250mg calcium carbonate. Contains 500mg elemental calcium. (Same As: OsCal 500) Calcium Gluconate 2 tab, Route: Inactive [place] 650 MG Oral Tablet PO, ONCE, 2019 Med ical Dosing Weight Center 84.545, kg, Start date: 02/20/20 7:03:00 CDT, Stop date: 02/20/20 7:03:00 CDT remove patch 1 patch, No Longer [place] Route: TOP, Active 2019 [facility] Bedtime, Drug Center form: ERFILM, Start date: 02/19/20 21:00:00 CDT, Duration: 30 day, Stop date: 03/19/20 21:00:00 CDT, 0 albumin human 5% Notes: LOT#: Inactive [facility] intravenous M 2019 Medic al solution fg: Center (Same as: Albuminar) "blood product derivative&quo t; WASTE: F/P - Red; E -Red MEDICATION WASTE Product Size: 25 gm Product Wasted: _0__ gm Diphenhydramine 50 mg, Route: Inactive [facility] IVP, ONCE, 2019 Medical Dosing Weight Center 84.545, kg, Start date: 02/19/20 12:00:00 CDT, Stop date: 02/19/20 12:00:00 CDT Calcium Gluconate Notes: WASTE: Inactive [place] F/P - Sink; E 2019 [facility] Municipal Center Trash Bin albumin human 5% Notes: LOT#: Inactive [facility] intravenous M 2019 Medic al solution fg: [...] Longer [place] As: Crestor) Active 2019 [facility] Insulin regular Notes: (Same No Longer [facility] as: Humulin R) 2019 Medical Roll in palms Center of hands gently; Do not shake vigorously. WASTE: F/P - Black; E - Municipal Trash Bin Stable for 31 days at room temperature Expires in days from Date insulin glargine 20 unit, 0.2 No Longer [place] mL, Route: 2019 Medical SUB-Q, Drug Center [...] 0 Glucagon 1 mg, Route: No Longer [place] IM, Drug form: Active 2019 Medical PDR/INJ, PRN, Center Dosing Weight 84.545, kg, PRN Blood Glucose Results, Start date: 02/18/20 16:05:00 CDT, Duration: 30 day, Stop date: 03/19/20 16:04:00 CDT, 0 Insulin regular Notes: (Same No Longer [facility] as: Humulin R) Active 2019 Medical Roll in [place] Center of hands gently; Do not shake [...] 6:25:00 CDT Glucagon 1 mg, Route: Inactive [place] IM, PRN, 2019 Medical Dosing Weight Center 84.545, kg, PRN Blood Glucose Results, Start date: 02/18/20 6:26:00 CDT, Duration: 30 day, Stop date: 03/19/20 6:25:00 CDT Insulin regular 1 unit, Route: Inactive [place] SUB-Q, 2019 Medical TID-Before Center Meals, Dosing Weight 84.545, kg, PRN Blood Glucose Results, Start date: 02/18/20 6:26:00 CDT, Duration: 30 day, Stop date: 03/19/20 6:25:00 CDT potassium chloride Notes: (Same Inactive [place] 20 mEq oral as: K-Dur ) 2019 [...] s with feeding tube less than 14 Romanian (Dobhoff, J-tube etc) and pediatric and patients. Tylenol Notes: Do not No Longer [place] exceed 4 Active 2019 Medical gm/day. (Same Center as: Tylenol) Calcium Gluconate Notes: WASTE: Inactive [place] F/P - Sink; E 2019 [facility] Center Trash Bin albumin human 5% Notes: LOT#: Inactive [facility] intravenous M 2019 Medic al solution fg: Center (Same as: Albuminar) "blood product derivative&quo t; WASTE: F/P - Red; E -Red MEDICATION WASTE Product Size: 25 gm Product Wasted: ___ gm Pyridostigmine 90 mg, Route: Inactive [place] GT, Drug form: 2019 Medical TAB, Q8H, Center Dosing Weight 84.545, kg, Start date: 02/17/20 16:00:00 CDT, Duration: 30 day, Stop date: 03/18/20 8:00:00 CDT, 0 Mestinon Notes: (Same No Longer [place] as: Mestinon) Active [address] [place] [address] Center pyridostigmine Notes: (Same No Longer [facility] as: Mestinon) Active 2019 Medical 30 [...] Furosemide 20 MG Notes: (Same No Longer [facility] Oral Tablet as: Lasix) Active 2019 Medical May cause GI Center upset. Give with food or milk. Lisinopril Notes: (Same No Longer [place] as: Prinivil, Active 2020 [facility] Zestril) Center Sertraline Notes: (Same No Longer [place] as: Zoloft) Active 2019 [facility] Prednisone Notes: Take No Longer [place] with food. Active 2019 [facility] Thiamine Notes: (Same No Longer [place] As: Vitamin Active 2019 [facility] B1) Center Thyroxine Notes: Take 1 No Longer [place] as hour before or [address] [place] [address] 2 hours after Center meal; Enteral feeds [...] No Longer [place] IM, Drug form: 2019 [facility] PDR/INJ, PRN, Center Dosing Weight 84.545, kg, PRN Blood Glucose Results, Start date: 02/17/20 0:59:00 CDT, Duration: 30 day, Stop date: 03/18/20 0:58:00 CDT, 0 Insulin Lispro Notes: (Same No Longer [place] as: Humalog) 2019 [facility] Roll in palms Center of hands gently; [...] 0:57:00 CDT Pyridostigmine Notes: (Same No Longer [place] as: Mestinon) Active 2020 Medical Center Prednisone Notes: Take No Longer [place] with food. Active 2020 [facility] Dextrose 5% in 1,000 mL, No Longer [place] IV 1,000 mL Rate: 50 Active 2019 Medic al ml/hr, Infuse Center over: 20 hr, Route: IV, Dosing Weight 84.545 kg, Total Volume: 1,000, Start date: 02/16/20 13:53:00 CDT, Duration: 30 day, Stop date: 03/17/20 13:52:00 CDT, 1.91, m2, 0 Pyridostigmine 60 mg = 1 tab, Active [place] 60 MG Oral PO, TID, 0 2019 Md dical Tablet [Mestinon] Refill(s) Cent er Clonazepam Notes: (Same No Longer [place] As: KlonoPIN) Active 2019 [facility]ardous Drug Center Group 3:Reproductive risk Hazardous Drug -- Refer to safe handling procedure PPE Matrix Acetaminophen 500 1,000 mg = 2 No Longer [place] MG Oral Tablet tab, PO, TID, Active 2019 Med ical [Tylenol] 0 Refill(s) [place] Docusate Sodium 50 Notes: (Same Inactive [place] MG / sennosides, as Senokot-S) 2019 edical LONG-TERM 8.6 MG Oral Equiv. to Center Tablet Cassidy-Colace. Pyridostigmine Notes: (Same Inactive [place] as: Mestinon) 2020 [facility] Furosemide 20 MG Notes: (Same Inactive [facility] Oral Tablet as: Lasix) [facility] Medical May cause GI Center upset. Give with food or milk. Lisinopril Notes: (Same [place]active [place] as: Prinivil, 2019 [facility] Zestril) [place] Sertraline Notes: (Same Inactive s as: Zoloft) [address] [place] [address] thiamine 100 mg 200 mg = 2 No Longer [place] oral tablet tab, PO, Daily Active 2019 [facility] Center 3 ML Insulin, See Active [place] Aspart, Human 100 Instructions, 2019 Medical UNT/ML Pen 10 unit SUB-Q Center Injector [NovoLog] TID-Before Meals and at bedtime, 0 Refill(s) 3 ML insulin 30 unit, No Longer [place] detemir 100 UNT/ML SUB-Q, BID, 0 Active 2019 [facility] Prefilled Syringe Refill(s) Cent er [Levemir] Thyroxine Notes: Take 1 Inactive [facility] s hour before or [address] [place] [address] 2 hours after Center meal; Enteral feeds may interefere with the absorption of this medication. (Same as:Synthroid) heparin sodium, Notes: porcine No Longer [place] porcine 2500 heparin Active 2019 [facility] UNT/ML Injectable Center Solution rosuvastatin Notes: (Same No Longer [place] As: Crestor) Active [address] [place] [address] Dextrose 50% 12.5 gm, 25 [place] Longer [place] Syringe (D50W) mL, Route: 2019 Medica l IVP, Drug Center Form: INJ, Dosing Weight 84.545, kg, PRN, PRN Blood Glucose Results, Start date: 02/15/20 19:49:00 CDT, Duration: 30 day, Stop date: 03/16/20 19:48:00 CDT, 0 Glucagon 1 mg, Route: No Longer [place] IM, Drug form: 2019 [facility] PDR/INJ, PRN, Center Dosing Weight 84.545, kg, PRN Blood Glucose Results, Start date: 02/15/20 19:49:00 CDT, Duration: 30 day, Stop date: 03/16/20 19:48:00 CDT, 0 Insulin Lispro Notes: (Same No Longer [place] as: Humalog) Active 2019 Medical Roll in palms Center of hands gently; Do not shake vigorously. WASTE: F/P - Black; E - Municipal Trash Bin Stable for 28 days at room temperature. Expires in days from Date Amlodipine Notes: (Same No Longer [place] as: Norvasc) Active 2019 [facility] Potassium Chloride 10 mEq = 1 Active [place] 10 MEQ Extended tab, PO, 2019 Medical Release Tablet Daily, # 30 Cente r [Klor-Con] tab, 0 Refill(s), other amLODIPine 5 mg 5 mg = 1 tab, Active [facility] oral tablet PO, Daily, # 2019 Medical 30 tab, 0 Center Refill(s), Pharmacy: [facility]/pharmacy #[id number], 149.86, cm, 12/06/19 15:12:00 CDT, Height, 90, kg, 11/23/19 2:25:00 CDT, Weight insulin lispro 100 2 unit, SUB-Q, Active [facility] units/mL TID-Before 2019 Medical injectable Meals, PRN Center solution Blood Glucose Results, before each meal, FOR BLOOD SUGAR 150-199, # 3 mL, 0 Refill(s), other lansoprazole 3 30 mg = 10 mL, Active [facility] mg/mL oral PO, BID-Before 2019 Medica l suspension Meals, # 600 Center mL, 0 Refill(s), other Lidocaine 0.04 1 patch, TOP, Active [facility] MG/MG Medicated Daily, X 10 2019 Medi roger Patch day, # 10 Center patch, 0 Refill(s), other 3 ML insulin 14 unit, Active [facility] detemir 100 UNT/ML SUB-Q, BID, # 2020 Medical Prefilled Syringe 3 mL, 0 Center [Levemir] Refill(s), other D50W (bolus) IV 12.5 gm, 25 No Longer [facility] mL, Route: 2019 Medical IVP, Drug Center Form: INJ, Dosing Weight 90, kg, PRN, PRN Blood Glucose Results, Start date: 12/19/19 8:19:00 CDT, Duration: 30 day, Stop date: 01/18/20 8:18:00 CDT, 0 Glucagon 1 mg, Route: No Longer [place] IM, Drug form: Active 2020 Medical PDR/INJ, PRN, Center Dosing Weight 90, kg, PRN Blood Glucose Results, Start date: 12/19/19 8:19:00 CDT, Duration: 30 day, Stop date: 01/18/20 8:18:00 CDT, 0 Insulin Lispro Notes: (Same No Longer [place] as: Humalog) Active 2020 Medical Roll in palms Center of hands gently; Do not shake vigorously. WASTE: F/P - Black; E - Municipal Trash Bin Stable for 28 days at room temperature. Expires in days from Date D50W (bolus) IV 12.5 gm, 25 No Longer [place] mL, Route: 2019 Medical IVP, Drug Center Form: INJ, Dosing Weight 90, kg, PRN, PRN Blood Glucose Results, Start date: 12/19/19 8:18:00 CDT, Duration: 30 day, Stop date: 01/18/20 8:17:00 CDT, 0 Glucagon 1 mg, Route: No Longer [place] IM, Drug form: 2019 Medical PDR/INJ, PRN, Center Dosing Weight 90, kg, PRN Blood Glucose Results, Start date: 12/19/19 8:18:00 CDT, Duration: 30 day, Stop date: 01/18/20 8:17:00 CDT, 0 Insulin Lispro Notes: (Same No Longer [place] as: Humalog) Active 2019 Medical Roll in palms Center of hands gently; Do not shake vigorously. WASTE: F/P - Black; E - Municipal Trash Bin Stable for 28 days at room temperature. Expires in days from Date Potassium Chloride Notes: (Same Inactive [place] 1.33 MEQ/ML Oral as: Potassium 2020 M edical Solution Chloride) Center Dextrose 50% 12.5 gm, 25 [place]er [place] Syringe (D50W) mL, Route: Active 2020 Medica l IVP, Drug Center Form: INJ, Dosing Weight 90, kg, PRN, PRN Blood Glucose Results, Start date: 12/16/19 15:42:00 CDT, Duration: 30 day, Stop date: 01/15/20 15:41:00 CDT, 0 Glucagon 1 mg, Route: No Longer [facility] IM, Drug form: 2019 Medical PDR/INJ, PRN, Center Dosing Weight 90, kg, PRN Blood Glucose Results, Start date: 12/16/19 15:42:00 CDT, Duration: 30 day, Stop date: 01/15/20 15:41:00 CDT, 0 Insulin Lispro Notes: (Same No Longer [facility] as: Humalog) 2019 Medical Roll in palms Center of hands gently; Do not shake vigorously. WASTE: F/P - Black; E - Municipal Trash Bin Stable for 28 days at room temperature. Expires in days from Date potassium Notes: (Same No Longer [facility] phosphate-sodium as: Phos-NaK) 2019 M edical phosphate 250 Each 1.5 gm Center mg-280 mg-160 mg pkt has 250mg oral powder for phosphorous. reconstitution Mix w/2.5oz water and stir. Potassium Chloride Notes: (Same Inactive [facility] as: KCL) 2019 Medical Infuse over 2 Center hours. Morphine Notes: (Same No Longer [facility] as:MORPhine Active 2019 Medical Sulfate) Center potassium Notes: (Same No Longer [facility] phosphate as: K Active 2019 Medical Phosphate.) Center Do not infuse phosphorous concurrently in the same line as TPN or IVF that contains calcium. For double lumen central lines, phosphorous may be infused in a separate lumen from TPN. 1 mMol phoshate has 1.47 mEq potassium Infuse over 4 hours insulin, isophane Notes: (Same No Longer [facility] as: Humulin N) 2019 Medical Roll [...] / as: Duoneb) 2019 Medical Ipratropium Center [place] 0.167 MG/ML Inhalant Solution Furosemide Notes: (Same [...] (Same No Longer as: Lovenox) Active 2020 [facility] Center Magnesium Sulfate Notes: WASTE: Inactive [place] [...] Longer [place] As: KlonoPIN) Active 2019 [facility] Hazardous Drug Center Group 3:Reproductive risk Hazardous Drug -- Refer to safe handling procedure PPE Matrix Lorazepam Notes: (Same Inactive [place] as: Ativan) 2020 Medical [facility] Notes: Infuse No Longer [place] over 15 Active 2019 Medical minutes Do Center not exceed 4gm/day of acetaminophen MEDICATION WASTE Product Size: 1000 mg Product Wasted: ___ mg Lidocaine Notes: (Same [place] Long[place] Hydrochloride 0.02 as: Xylocaine Active 2019 Medical MG/MG Topical Gel Jelly, Glydo) Center Morphine Notes: (Same No Longer [place] as:MORPhine 2019 Medical Sulfate) Center Blistex topical Notes: Same No Longer [place] ointment as: Blistex Active 2019 Medical Center LR IV 1,000 mL 1,000 mL, [place] Long[place] Rate: 75 2019 Medical ml/hr, Infuse Center over: 13.3 hr, Route: IV, Dosing Weight 90 kg, Total Volume: 1,000, Start date: 12/11/19 0:31:00 CDT, Duration: 1 day, Stop date: 12/12/19 0:30:00 CDT, 1.98, m2, 0 pantoprazole Notes: For IV No Longer [place] push Active 2019 [facility] reconstitute Center with 10 ml 0.9% sodium chloride and push over 2 minutes. (Same as: Protonix) Lovenox Notes: (Same No Longer [place] as: Lovenox) [address] Lanolin 0.157 Notes: (Same No Longer [place] MG/MG / Menthol as: 2019 Medical 0.0044 MG/MG / Calmoseptine) Mitch ter Petrolatum 0.24 MG/MG / Zinc Oxide 0.206 MG/MG Topical Ointment [Calmoseptine] insulin, isophane Notes: (Same No Longer [place] as: Humulin N) 2019 Medical Roll in palms Center of hands gently; Do not shake vigorously. WASTE: F/P - Black; E - Municipal Trash Bin Stable for 31 days at room temperature Expires in days from Date Lasix Notes: (Same No Longer [place] as: Lasix) Active 2019 Medical May cause [...] 0 Insulin Lispro Notes: (Same No Longer [place] as: Humalog) 2019 Medical Roll in palms Center of hands gently; Do not shake vigorously. WASTE: F/P - Black; E - Municipal Trash Bin Stable for 28 days at room temperature. Expires in days from Date Dextrose 5% with 1,000 mL, No Longer [place] 0.45% NaCl IV Rate: 75 Active 2019 [...] No Longer [place] as:Altace) Active 2020 Medical [place] Dextrose 50% in 12.5 gm, 25 No [...] Longer [place] with food. Active 2020 [facility] Potassium Chloride Notes: (Same Inactive [place] as: Potassium 2020 [facility] Chloride) Center Lovenox Notes: (Same No Longer [...] 0 Glucagon 1 mg, Route: No Longer [facility] IM, Drug form: Active 2020 Medical PDR/INJ, PRN, Center Dosing Weight 90, kg, PRN Blood Glucose Results, Start date: 12/06/19 12:15:00 CDT, Duration: 30 day, Stop date: 01/05/20 12:14:00 CDT, 0 Insulin regular Notes: (Same No Longer [facility] [place] [facility] as: Humulin R) Active 2020 Medical Roll in palms Center of hands gently; Do not shake vigorously. WASTE: F/P - Black; E - Municipal Trash Bin Stable for 31 days at room temperature Expires in days from Date Famotidine 20 MG Notes: (Same No Longer [facility] Oral Tablet as: Pepcid) Active 2020 [facility] [Pepcid] Center chlorhexidine Notes: (Same No Longer [facility] gluconate 1.2 As: Peridex) Active 2020 Medic al MG/ML Mouthwash Center ocular lubricant Notes: (Same No Longer [facility] as: Active 2020 [facility] Lacri-Lube, Center Puralube, Duratears Naturale, Artificial Tears, and Tears Again ) chlorhexidine Notes: (Same No Longer [facility] gluconate 1.2 As: Peridex) Active 2020 Medic al MG/ML Mouthwash Center Hydrocortisone Notes: (Same No Longer [facility] as: Active 2020 [facility] Solu-CORTEF) Center Neurontin Notes: ([facility] Long[facility] as: Neuront[facility]) Active [address] [place] [address] Center NS 1,000 mL 1,000 mL, No Longer [facility] Rate: 40 Active 2020 [facility] ml/hr, Infuse Center over: 25 hr, Route: [...] being intubated (unless the nurse is a SECURITY AND COMPLIANCE ANALYST). Same as: Diprivan norepinephrine Route: IV, Inactive [...] CDT propofol (ANES) 10 Route: IV, Inactive [facility] [place] mg Drug form: 2019 Medical INJ, Start Center date: 12/05/19 8:55:00 CDT, Stop date: 12/05/19 9:55:00 CDT SUFentanil (ANES) Route: IV, Inactive [facility] 50 microgram Drug form: 2019 Medical [...] CDT Albuterol 0.833 Notes: (Same No Longer [place] MG/ML / as: Duoneb) Active 2020 Medical Ipratropium Center [place] 0.167 MG/ML Inhalant Solution Humalog Notes: (Same No Longer [facility] as: Humalog) Active 2020 Medical Roll in palms Center of hands gently; Do not shake vigorously. WASTE: F/P - Black; E - Municipal Trash Bin Stable for 28 days at room temperature. Expires in days from Date Humalog Notes: (Same Inactive [facility] as: Humalog) 2020 Medical Roll in palms Center of hands gently; Do not shake vigorously. WASTE: F/P - Black; E - Municipal Trash Bin Stable for 28 days at room temperature. Expires in days from Date Humalog Notes: (Same Inactive [facility] as: Humalog) 2020 Medical Roll in palms Center of hands gently; Do not shake vigorously. WASTE: F/P - Black; E - Municipal Trash Bin Stable for 28 days at room temperature. Expires in days from Date Insulin Lispro Notes: (Same No Longer [facility] as: Humalog) Active 2019 Medical Roll in palms Center of hands gently; Do not shake vigorously. WASTE: F/P - Black; E - Municipal Trash Bin Stable for 28 days at room temperature. Expires in days from Date Insulin Glargine 20 unit, 0.2 No Longer [facility] mL, Route: Active 2019 Medical SUB-Q, Drug Center form: SOLN, Daily, Dosing Weight 90, kg, Start date: 12/02/19 9:00:00 CDT, Duration: 30 day, Stop date: 12/31/19 9:00:00 CDT, 0 Levemir 20 unit, Inactive [facility] Route: SUB-Q, 2020 Medical Bedtime, Center [...] 0 Glucagon 1 mg, Route: No Longer [facility] IM, Drug form: Active 2019 Medical PDR/INJ, PRN, Center Dosing Weight 90, kg, PRN Blood Glucose Results, Start date: 11/29/19 21:47:00 CDT, Duration: 30 day, Stop date: 12/29/19 21:46:00 CDT, 0 Insulin Lispro Notes: (Same No Longer [facility] as: Humalog) Active 2019 Medical Roll in palms Center of hands gently; Do not shake vigorously. WASTE: F/P - Black; E - Municipal Trash Bin Stable for 28 days at room temperature. Expires in days from Date Insulin Glargine 20 unit, 0.2 No Longer [place] 100 UNT/ML mL, Route: 2019 Medical Injectable SUB-Q, Drug Center Solution [Lantus] form: SOLN, Q12H, Dosing Weight 90, kg, Start date: 11/29/19 21:00:00 CDT, Duration: 30 day, Stop date: 12/29/19 9:00:00 CDT, 0 Lidocaine Notes: (Same [place] Long[place] Hydrochloride 10 as: Xylocaine) Active 2019 Medical MG/ML Injectable Center Solution Saline Flush 0.9% Notes: (Same No Longer [facility] as: BD Active 2019 Medical Posiflush) Center Saline Flush 0.9% Notes: (Same No Longer [facility] as: BD Active 2019 Medical Posiflush) Center Dextrose 5% with 1,000 mL, No Longer [place] 0.45% NaCl IV Rate: 40 2019 Medical 1,000 mL ml/hr, Infuse Center over: 25 hr, Route: IV, Dosing Weight 90 kg, Total Volume: 1,000, Start date: 11/29/19 6:28:00 CDT, Duration: 30 day, Stop date: 12/29/19 6:27:00 CDT, 1.98, m2, 0 Melatonin 3 MG Notes: (Same No Longer [facility] Extended Release as: Melatonin) Active 2019 Medical Tablet Center sennosides, LONG-TERM Notes: (Same No Longer 11/25/ H [place] as: Senokot) Active 2019 Medical Center Insulin Glargine 20 unit, 0.2 No Longer [place] 100 UNT/ML mL, Route: Active 2019 Medical Injectable SUB-Q, Drug Center Solution [Lantus] form: SOLN, Q12H, Dosing Weight 90, kg, Start date: 11/25/19 21:00:00 CDT, Duration: 30 day, Stop date: 12/25/19 9:00:00 CDT, 0 Ramipril Notes: (Same No Longer [facility] as:Altace) Active 2019 [facility] Center Oxycodone Notes: (Same [place] Long[place] Hydrochloride 1 as: 2019 Medical MG/ML Oral 'Roxicodone) Center Solution rosuvastatin Notes: (Same No Longer [place] As: Crestor) Active 2019 [facility] Acetaminophen 325 650 mg = 2 Active [facility] MG Oral Tablet tab, PO, PRN, 2019 Med ical [Tylenol] 0 Refill(s) Center clonazePAM 0.5 mg 0.5 mg = 1 Active [facility] oral tablet tab, PO, BID, 2019 Medica l 0 Refill(s) Center sertraline 25 mg 25 mg = 1 tab, Active [facility] oral tablet PO, Daily, 0 2019 Medical Refill(s) Center predniSONE 20 mg 20 mg = 1 tab, Active [facility] oral tablet PO, Daily, 0 2019 Medical Refill(s) Center rosuvastatin 20 mg 20 mg = 1 tab, Active [facility] oral tablet PO, Daily, 0 2019 Medical Refill(s) Center ramipril 2.5 mg 2.5 mg = 1 Active [place] oral capsule cap, PO, 2019 Medical Daily, 0 Center Refill(s) 3 ML insulin 25 unit, No Longer [facility] detemir 100 UNT/ML SUB-Q, BID, # Active 2019 Medical Prefilled Syringe 3 mL, 3 Center [Levemir] Refill(s) levothyroxine 88 88 microgram = Active [facility] mcg (0.088 mg) 1 tab, PO, 2019 Medica l oral tablet Daily, 0 Center Refill(s) Klor-Con 10 = 1 tab, PO, [place] Longer [place] BID, 0 2019 Medical Refill(s) Center 3 ML Insulin, 10 unit, No Longer [facility] Aspart, Human 100 SUB-Q, Active 2019 Medica l UNT/ML Pen TID-Before Center Injector [NovoLog] Meals, 0 Refill(s) Insulin Glargine 20 unit, 0.2 No Longer 06/25/ [facility] 100 UNT/ML mL, Route: Active 2019 Medical Injectable SUB-Q, Drug Center Solution [Lantus] form: SOLN, Bedtime, Dosing Weight 90, kg, Start date: 11/23/19 21:00:00 CDT, Duration: 30 day, Stop date: 12/22/19 21:00:00 CDT, 0 Insulin regular Notes: (Same Inactive [place] as: Humulin R) 2020 Medical Roll in [...] 0 Glucagon 1 mg, Route: No Longer [place] IM, Drug form: Active 2019 Medical [...] Medical Center Lasix Notes: (Same No Longer [facility] as: Lasix) Active 2020 Medical May [...] saline 0.9% 1,000 mL, No Longer H [place] IV 1,000 mL Rate: [address] [place] [address] ml/hr, Infuse Center over: 13.3 hr, Route: IV, Dosing Weight 90 kg, Total Volume: 1,000, Start date: 11/23/19 10:33:00 CDT, Duration: 30 day, Stop date: 12/23/19 10:32:00 CDT, 1.98, m2, 0 Zoloft Notes: (Same No Longer [facility] as: Zoloft) Active 2020 [facility] Center Prednisone Notes: Take No Longer [place] with food. Active 2020 [facility] Docusate Notes: (Same No Longer [facility] as: Colace) Active 2020 Medical (Do Not Crush) Center sennosides, LONG-TERM Notes: (Same No Longer 11/22/ M H [place] as: Senokot) Active 2020 [facility] Albuterol 0.833 Notes: (Same No Longer 11/22/ M H [place] MG/ML / as: Duoneb) Active 2020 [facility] Ipratropium [place] 0.167 MG/ML Inhalant Solution Synthroid Notes: Take 1 No Longer [place] as hour before or Active 2020 Medical 2 hours after Center meal; Enteral feeds may interefere with the absorption of this medication. (Same as:Synthroid) remove patch Notes: Remove No Longer [place] patch 12 hours 2019 Medical after Center application each day. Pyridostigmine Notes: (Same No Longer [place] as: Mestinon) Active 2019 [facility] Amlodipine Notes: (Same No Longer [place] as: Norvasc) Active [address] [place] [address] Enoxaparin Notes: (Same In[place] as: Lovenox) [address] [place] [address] Lidocaine Notes: Apply No Longer [place] [...] 0 Glucagon 1 mg, Route: No Longer [place] IM, Drug form: 2019 Medical PDR/INJ, PRN, Center Dosing Weight 100, kg, PRN Blood Glucose Results, Start date: 11/22/19 16:16:00 CDT, Duration: 30 day, Stop date: 12/22/19 16:15:00 CDT, 0 Insulin regular Notes: (Same No Longer [facility] as: Humulin R) 2019 Medical Roll in [...] Saline Flush 0.9% Notes: Same No Longer [place] as: BD Active 2019 Medical Posiflush Center Sterile Ativan Notes: (Same Inactive [place] as: Ativan) 2019 [facility] Ativan 1 mg, Route: Inactive [place] IVP, Drug 2019 Medical form: INJ, Center ONCE, Dosing Weight 100, kg, PRN as needed for anxiety, Priority: Routine, Start date: 11/22/19 15:28:00 CDT Calcium Chloride 500 mL, Infuse Inactive [place] 0.0014 MEQ/ML / Over: 1 hr, 2019 [facility] roger Potassium Chloride Route: IV, Ce nter 0.004 MEQ/ML / ONCE, Sodium Chloride Priority: 0.103 MEQ/ML / STAT, Dosing Sodium Lactate Weight 100 kg, 0.028 MEQ/ML Start date: Injectable 11/22/19 Solution 11:17:00 CDT, Stop date: 11/22/19 11:17:00 CDT Iohexol 150 mL, Route: Inactive [place] IVP, Drug 2019 Medical Form: SOLN, Center Dosing Weight 100, kg, ONCALL, STAT, Start date: 11/22/19 9:50:00 CDT, Duration: 1 doses or times, Dose = 2.2ml/kg, Max dose = 150ml -- "To be infused by Radiology Staff ONLY" Fentanyl Notes: (Same Inactive [place] as: Sublimaze) 2019 Medical Preservative Center free. [...] 7:32:00 CDT Iohexol 100 mL, Route: Inactive [facility] IVP, Drug 2020 Medical Form: SOLN, [place] Dosing Weight 100, kg, ONCALL, STAT, Start date: 11/22/19 7:08:00 CDT, Duration: 1 doses or times, Dose = 2.2ml/kg, Max dose = 100ml -- "To be infused by Radiology Staff ONLY" heparin flush Notes: (Same Inactive [facility] [place] as: Heparin 2019 Medical Lock Flush) [place] heparin 100 unit, Inactive [facility] Route: IVP, 2019 Medical ONCE, Dosing Center Weight 100, kg, Start date: 03/04/19 17:24:00 CDT, Stop date: 03/04/19 17:24:00 CDT rosuvastatin 10 mg 20 mg = 2 tab, Active [facility] oral tablet PO, Bedtime, # 2019 Medic al 180 tab, 3 Center Refill(s) amLODIPine 10 mg 10 mg, PO, Active [facility] [place] oral tablet Daily, # 30 2019 Medical tab, 0 Center Refill(s) Ergocalciferol 50,000 Active [facility] [address] UNT Oral IntlUnit = 1 2019 Medi roger Capsule cap, PO, Q7D, Center # 5 cap, 0 Refill(s) Famotidine 20 MG 20 mg = 1 tab, Active [facility] Oral Tablet PO, Daily, # 2019 Medical 30 tab, 0 Center Refill(s) Furosemide 20 MG 20 mg = 1 tab, Active [facility] Oral Tablet PO, Daily, # 2019 Medical [Lasix] 30 tab, 0 Center Refill(s) Insulin Glargine 15 unit, Active [place] 100 UNT/ML SUB-Q, Daily, 2019 Medical Injectable # 15 mL, 0 Center Solution [Lantus] Refill(s) linezolid 600 mg 600 mg = 1 Active [place] oral tablet tab, PO, 2019 Medical [id number], X 7 Center day, # 14 tab, 0 Refill(s) meclizine 12.5 mg 12.5 mg = 1 Active [facility] oral tablet tab, PO, TID, 2019 [...] PO, Active [place] 800 MG / [id number], X 7 2019 Medical Trimethoprim 160 day, [...] [place] oral tablet tab, PO, 2019 Medical [id number], 0 Center Refill(s) meclizine 12.5 mg 12.5 [...] tab, PO, Inactive [place] 800 MG / [id number], 0 2019 Medical Trimethoprim 160 Refill(s) Cente r MG Oral Tablet [Bactrim] Acetaminophen 325 650 mg = 2 Inactive [place] MG Oral Tablet tab, PO, Q6H, 2019 Med ical PRN Pain Score Center 7-10, 0 Refill(s) Ergocalciferol 50,000 Inactive [facility] [address]263 UNT Oral IntlUnit = 1 2019 Medi roger Capsule cap, PO, Q7D, Center 0 Refill(s) Famotidine 20 MG 20 mg = 1 tab, Inactive [place] Oral Tablet PO, Daily, 0 2018 Medical Refill(s) [place] Hydroxyzine 25 mg = 1 cap, Inactive [place] Hydrochloride 25 PO, QID, PRN 2019 Me dical MG Oral Capsule Anxiety, 0 Cente r Refill(s) predniSONE 5 mg 25 mg = 5 tab, Inactive [facility] oral tablet PO, Daily, 0 2018 Medical Refill(s) [place] Flagyl 500 mg, 1 tab, Inactive [facility] Route: PO, 2019 Medical Drug form: [place] TAB, [id number], Dosing Weight 100, kg, Start date: 03/04/19 9:00:00 CDT, Duration: 14 day, Stop date: 03/18/19 1:00:00 CDT, ABX Indication: Skin/Soft Tissue Infection, 0 Furosemide 40 MG Notes: (Same No Longer [facility] Oral Tablet as: Lasix) Active 2019 Medical [Lasix] May cause GI Center upset. Give with food or milk. Meclizine Notes: (Same [place] Long[place] as: Antivert) Active 2019 Medical [place] pyridostigmine 60 60 mg = 1 tab, No Longer 03/02 [place] mg oral tablet PO, TID, # 180 Active 2019 Me dical tab, 0 Center Refill(s) Hydroxyzine Notes: (Same [place] Long[place] as: Vistaril) Active 2019 [facility] Insulin Glargine 15 unit, 0.15 No Longer [place] 100 UNT/ML mL, Route: Active 2019 [facility] Injectable SUB-Q, Drug Center Solution [Lantus] form: SOLN, Daily, Dosing Weight 90.909, kg, Start date: 02/28/19 9:00:00 CDT, Duration: 30 day, Stop date: 03/29/19 9:00:00 CDT, 0 Insulin Lispro Notes: (Same No Longer [facility] as: Humalog) Active 2019 Medical Roll in palms Center of hands gently; Do not shake vigorously. WASTE: F/P - Black; E - Municipal Trash Bin Stable for 28 days at room temperature. Expires in days from Date Seroquel Notes: (Same No Longer [facility] as: SEROquel) Active 2019 [facility] linezolid 600 mg, 1 tab, [place] Longer [place] Route: PO, Active 2019 Medical Drug form: Center TAB, [id number], Dosing Weight 90.909, kg, Start date: 02/26/19 17:00:00 CDT, Duration: 10 day, Stop date: 03/08/19 8:00:00 CDT, ABX Indication: Skin/Soft Tissue Infection, 0 Sulfamethoxazole 2 tab, Route: No Longer [facility] 800 MG / PO, Drug Form: Active 2019 [facility] Trimethoprim 160 TAB, Dosing Mitch ter MG Oral Tablet Weight 90.909, [Bactrim] kg, [id number], Start date: 02/26/19 17:00:00 CDT, Duration: 10 day, Stop date: 03/08/19 5:00:00 CDT, 0 Lactated [place] Route: IV, Inactive [place] Injection IV Total Volume: 2019 Medic al [...] vigorously. WASTE: F/P - Black; E - [employer] Trash Bin Stable for 31 days at [...] 03/24/19 23:52:00 CDT ertapenem Notes: No Longer [place] MEDICATION Active 2019 Medical WASTE Center Product Size: 1000 mg Product Wasted: ___ mg insulin, isophane Notes: (Same No Longer [place] as: Humulin N) Active 2019 Medical [...] Saline Flush 0.9% 10 mL, Route: Inactive [facility] IVP, Drug 2019 Medical Form: INJ, [...] Saline Flush 0.9% 10 mL, Route: Inactive [facility] IVP, Drug 2018 Medical Form: INJ, Center Dosing Weight 90.909, kg, PRN, PRN Line Flush, Start date: 02/21/19 13:20:00 CDT, Duration: 30 day, Stop date: 03/23/19 13:19:00 CDT Lidocaine 2 spray, Inactive [place] Hydrochloride 20 Route: TOP, 2019 Med ical MG/ML Topical ONCE, Start [place] date: 02/21/19 13:20:00 CDT, Stop date: 02/21/19 13:20:00 CDT Lidocaine Notes: (Same [place] Longer [place] Hydrochloride 10 as: Xylocaine) Active 2019 Medical MG/ML Injectable Center Solution Saline Flush 0.9% 10 mL, Route: Inactive [facility] IVP, Drug 2019 Medical Form: INJ, [...] Saline Flush 0.9% Notes: (Same No Longer [place] as: BD Active 2019 Medical Posiflush) Center insulin, isophane Notes: (Same Inactive [facility] as: Humulin N) 2019 Medical Roll in palms Center of hands gently; Do not shake vigorously. WASTE: F/P - Black; E - [place] Trash Bin Stable for 31 days at room temperature Expires in days from Date Melatonin Notes: (Same No Longer [facility] s as: Melatonin) Active 2018 Medical Center Zyprexa Notes: (Same No Longer [place] As: ZyPREXA Active 2019 Medical IM). Center insulin, isophane Notes: (Same Inactive [facility] as: Humulin N) 2019 Medical Roll in palms Center of hands gently; Do not shake vigorously. WASTE: F/P - Black; E - Municipal Trash Bin Stable for 31 days at room temperature Expires in days from Date insulin, isophane Notes: (Same Inactive [facility] as: Humulin N) 2019 Medical Roll in palms Center of hands gently; Do not shake vigorously. WASTE: F/P - Black; E - Municipal Trash Bin Stable for 31 days at room temperature Expires in days from Date Iohexol 100 mL, Route: Inactive [place] IVP, Drug 2019 Medical Form: MORAIMA [place] Dosing Weight 90.909, kg, ONCALL, STAT, Start date: 02/19/19 9:17:00 CDT, Duration: 1 doses or times, Dose = 2.2ml/kg, Max dose = 100ml -- "To be infused by Radiology Staff ONLY" insulin detemir Notes: In[place] Non-Formulary 2019 Medical Drug (Same Center as [facility]) "Single Patient Use Only" Do not hold insulin without contacting prescriber WASTE: F/P - Black; E - Municipal Trash Bin Stable for 42 days at room temperature Expires in days from Date insulin detemir Notes: No Longer [place] as Non-Formulary Active 2019 Medical Drug (Same Center as [facility]) "Single Patient Use Only" Do not hold insulin without contacting prescriber WASTE: F/P - Black; E - Municipal Trash Bin Stable for 42 days at room temperature Expires in days from Date Potassium Chloride Notes: (Same Inactive [facility] as: K-) 2019 Medical "Do Not Crush" Center Give with food and full glass of water For patients unable to swallow tablet, dissolve in one half glass of water. Allow about 2 minutes for the tablets to disintegrate. Stir before giving to prepare slurry and administer. Please exclude Patient’ s with feeding tube less than 14 Romanian (Dobhoff, J-tube etc) and pediatric and patients. PlasmaLyte A Notes: (Same No Longer [place] PH-7.4 1,000 mL as: Isolyte S Active 2019 Me dical PH 7.4) Center insulin detemir Notes: No Longer [place] as Non-Formulary Active 2019 Medical Drug (Same Center as [facility]) "Single Patient Use Only" Do not hold insulin without contacting prescriber WASTE: F/P - Black; E - Municipal Trash Bin Stable for 42 days at room temperature Expires in days from Date Seroquel Notes: (Same No Longer [facility] as: SEROquel) Active 2019 Medical Center insulin detemir Notes: [place] Non-Formulary 2019 Medical Drug (Same Center as [facility]) "Single Patient Use Only" Do not hold insulin without contacting prescriber WASTE: F/P - Black; E - Municipal Trash Bin Stable for 42 days at room temperature Expires in days from Date Iohexol Notes: (same Inactive [facility] as:Omnipaque 2019 Medical 350). WASTE: Center F/P - Black; E - Municipal Trash Bin insulin detemir Notes: Inactive [facility] Non-Formulary 2019 Medical Drug (Same Center as Levemir) "Single Patient Use Only" Do not hold insulin without contacting prescriber WASTE: F/P - Black; E - Municipal Trash Bin Stable for 42 days at room temperature Expires in days from Date vancomycin + 2001 mg: No Longer [facility] Sodium Chloride infuse over Active 2018 Medi roger 0.9% IV 250 mL 2.5 hours For Ce nter adult patients only: Round to nearest 250 mg per Medical Staff approval MEDICATION WASTE Product Size: 1000 mg Product Wasted: ___ mg ertapenem Notes: No Longer [facility] MEDICATION Active 2019 Medical WASTE Center Product Size: 1000 mg Product Wasted: ___ mg vancomycin + 2001 mg: Inactive [facility] Sodium Chloride infuse over 2019 Medi roger 0.9% IV 500 mL 2.5 hours For Ce nter adult patients only: Round to nearest 250 mg per Medical Staff approval MEDICATION WASTE Product Size: 1000 mg Product Wasted: ___ mg Famotidine Notes: (Same No Longer [facility] as as: Pepcid) Active 2019 Medical [place] vancomycin + 2001 mg: Inactive [facility] Sodium Chloride infuse over 2019 Medi roger 0.9% IV 500 mL 2.5 hours For Ce nter adult patients only: Round to nearest 250 mg per Medical Staff approval MEDICATION WASTE Product Size: 1000 mg Product Wasted: ___ mg Vancomycin 1,000 mg, Inactive [facility] Route: IVPB, 2019 Medical Drug form: Center INJ, ABXQ8H, Dosing Weight 90.909, kg, Start date: 02/16/19 8:00:00 CDT, Duration: 7 day, Stop date: 02/23/19 0:00:00 CDT, ABX Indication: Skin/Soft Tissue Infection Humalog Notes: (Same No Longer [facility] as: Humalog) Active 2019 Medical Roll in palms Center of hands gently; Do not shake vigorously. WASTE: F/P - Black; E - Municipal Trash Bin Stable for 28 days at room temperature. Expires in days from Date Levemir Notes: No Longer [facility] Non-Formulary Active 2019 Medical Drug (Same Center as Leve[facility]) "Single Patient Use Only" Do not hold insulin without contacting prescriber WASTE: F/P - Black; E - Municipal Trash Bin Stable for 42 days at room temperature Expires in days from Date Humalog Notes: (Same Inactive [facility] as: Humalog) 2019 Medical Roll in [...] ___ mg Insulin Lispro Notes: (Same Inactive [facility] as: Humalog) 2019 Medical Roll in [...] 0 Insulin Lispro Notes: (Same No Longer [facility] as: Humalog) Active 2019 Medical Roll [...] 20:31:00 CDT Morphine Notes: (Same No Longer [place] as:MORPhine Active 2019 Medical Sulfate) Center Insulin Lispro Notes: (Same Inactive [facility] as: Humalog) 2019 Medical Roll in [...] from Date Insulin Lispro Notes: (Same Inactive [facility] as: Humalog) 2019 Medical Roll in palms Center of hands gently; Do not shake vigorously. WASTE: F/P - Black; E - Municipal Trash Bin Stable for 28 days at room temperature. Expires in days from Date Haloperidol Notes: (Same No Longer [place] as: Haldol) Active 2019 Medical Center Morphine 1 mg, Route: Inactive [facility] IV, ONCE, 2019 Medical Dosing Weight Center 90.909, kg, Priority: STAT, Start date: 02/10/19 13:32:00 CDT, Stop date: 02/10/19 13:32:00 CDT vancomycin 2001 mg: Inactive [facility] infuse over 2019 Medical 2.5 hours Center [facility] Notes: No Longer [facility] Non-Formulary Active 2019 Medical Drug (Same Center as [facility]) "Single Patient Use Only" [...] Wasted: _0__ mg Vancomycin 2001 mg: Inactive [place] infuse over 2019 Medical 2.5 hours For Center adult patients only: Round to nearest 250 mg per Medical Staff approval MEDICATION WASTE Product Size: 1000 mg Product Wasted: ___ mg Isolyte S PH-7.4 Notes: (Same Inactive [facility] IV as: Isolyte S 2019 Medical PH 7.4) Center Clindamycin Notes: (Same [place] As: Cleocin) Active 2019 Medical Center [facility] Notes: No Longer [place] Non-Formulary Active 2019 Medical Drug (Same Center as [facility]) "Single Patient Use Only" Do not hold insulin without contacting prescriber WASTE: F/P - Black; E - Municipal Trash Bin Stable for 42 days at room temperature Expires in days from Date Humalog Notes: (Same No Longer [facility] as: Humalog) Active 2019 Medical Roll [...] 0 Glucagon 1 mg, Route: No Longer [facility] IM, Drug form: Active 2019 Medical PDR/INJ, PRN, Center Dosing Weight 90.909, kg, PRN Blood Glucose Results, Start date: 02/08/19 1:33:00 CDT, Duration: 30 day, Stop date: 03/10/19 1:32:00 CDT, 0 Insulin Lispro Notes: (Same No Longer [facility] as: Humalog) Active 2019 Medical Roll in palms Center of hands gently; Do not shake vigorously. WASTE: F/P - Black; E - Municipal Trash Bin Stable for 28 days at room temperature. Expires in days from Date Humalog Notes: (Same Inactive [place] as: Humalog) 2019 Medical Roll in [...] normal saline 0.9% 1,000 mL, No Longer [facility] IV 1,000 mL Rate: 75 Active 2019 Medical ml/hr, Infuse Center over: 13.3 hr, Route: IV, Dosing Weight 90.909 kg, Total Volume: 1,000, Start date: 02/07/19 22:50:00 CDT, Duration: 30 day, Stop date: 03/09/19 22:49:00 CDT, 1.99, m2, 0 remove patch 1 patch, No Longer [place] Route: TOP, Active 2019 Medical Bedtime, Drug Center form: ERFILM, Start date: 02/07/19 21:00:00 CDT, Duration: 30 day, Stop date: 03/08/19 21:00:00 CDT, 0 Humalog Notes: (Same Inactive [facility] as: Humalog) 2019 Medical Roll in palms Center of hands gently; Do not shake vigorously. WASTE: F/P - Black; E - Municipal Trash Bin Stable for 28 days at room temperature. 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, 0 Ativan Notes: (Same No Longer [place] as: Ativan) Active 2019 [facility] Calcium Carbonate Notes: No Longer [place] 1250 MG / (calcium Active 2019 [facility] Cholecalciferol carbonate-vit Ce nter 400 UNT Chewable D Tablet 500mg-400unit chew TAB) Same as: Oscal 500+D heparin Notes: porcine No Longer [place] heparin Active 2019 [facility] tramadol 50 mg, 1 tab, No Longer [...] Furosemide 40 MG Notes: (Same No Longer [place] Oral Tablet as: Lasix) Active 2019 [...] 500 mL as: Isolyte S Active 2019 [facility] PH 7.4) Center Insulin Glargine 20 unit, [...] 0 Glucagon 1 mg, Route: No Longer [place] IM, Drug form: Active 2019 Medical PDR/INJ, PRN, Center Dosing Weight 90.909, kg, PRN Blood Glucose Results, Start date: 02/05/19 16:39:00 CDT, Duration: 30 day, Stop date: 03/07/19 16:38:00 CDT, 0 Insulin regular Notes: (Same No Longer [place] as: Humulin R) Active 2019 Medical Roll in palms Center of hands gently; Do not shake vigorously. WASTE: F/P - Black; E - [place] Trash Bin Stable for 31 days at room temperature Expires in days from Date Mestinon Notes: (Same No Longer [place] as: Mestinon) Active 2019 [facility] Prednisone 30 mg, 3 tab, No Longer [...] MG 40 mg = 1 tab, Active [place] Oral Tablet PO, BID 2019 Medical [Lasix] Diuretic, 0 Center Refill(s) Furosemide 40 MG Notes: (Same Inactive H [place] Oral Tablet as: Lasix) 2019 Medical [Lasix] [...] Furosemide 40 MG Notes: (Same No Longer [facility] Oral Tablet as: Lasix) Active 2019 Medical [Lasix] May cause GI Center upset. Give with food or milk. Amlodipine Notes: (Same No Longer [place] as as: Norvasc) Active 2019 Medical Center Ramipril Notes: (Same No Longer [place] as:Altace) Active 2019 Medical Center ceFAZolin Notes: (Same Inactive [facility] as Ancef) 2019 Medical Center Calcium Gluconate Notes: WASTE: Inactive [place] F/P - Sink; E 2019 [facility] Center Trash Bin predniSONE 20 mg 40 [...] other albumin human 5% Notes: LOT#: Inactive [facility] intravenous M 2018 Medic al solution fg: Center (Same as: Albuminar) "blood product derivative&quo t; WASTE: F/P - Red; E -Red MEDICATION WASTE Product Size: 25 gm Product Wasted: ___ gm Prednisone Notes: Take No Longer [place] with food. Active 2019 Medical Center Insulin Glargine 34 unit, 0.34 No Longer [place] 100 UNT/ML mL, Route: Active 2019 Medical Injectable SUB-Q, Drug Center Solution [Lantus] form: SOLN, Daily, Dosing Weight 92, kg, Start date: 01/01/19 9:00:00 CDT, Duration: 30 day, Stop date: 01/30/19 9:00:00 CDT, 0 Insulin Lispro Notes: (Same No Longer [facility] as: Humalog) Active 2019 Medical Roll in palms Center of hands gently; Do not shake vigorously. WASTE: F/P - Black; E - Municipal Trash Bin Stable for 28 days at room temperature. Expires in days from Date Insulin Glargine Notes: (Same No Longer [place] 100 UNT/ML as: Lantus) Do Active 2018 Medica l Injectable not hold Center Solution [Lantus] insulin without contacting prescriber WASTE: F/P - Black; E - Municipal Trash Bin "single patient use only" Stable for 28 days at room temperature Expires in days from Date Calcium Gluconate Notes: WASTE: Inactive [facility] F/P - Sink; E 2018 Medical - Municipal Center Trash Bin albumin human 5% Notes: LOT#: Inactive [facility] intravenous M 2018 Medic al solution fg: [...] No Longer [place] Chloraseptic Active 2019 Medical [place] (Same Center as: Chloraseptic, Sore Throat [place]) WASTE: F/P - Black; E - Municipal [...] 2019 Medical (Do Not Crush) Center sennosides, LONG-TERM Notes: (Same No Longer [place] 8.6 MG Oral Tablet as: Senokot) Active 2019 Medical Center Prednisone Notes: Take No Longer [place] with food. Active 2018 [facility] insulin, isophane Notes: (Same No Longer [place] as: Humulin N) Active 2018 Medical Roll in palms Center of hands gently; Do not shake vigorously. WASTE: F/P - Black; E - Municipal Trash Bin Stable for 31 days at room temperature Expires in days from Date insulin, isophane Notes: (Same Inactive [place] as: Humulin N) 2019 Medical Roll in palms Center of hands gently; Do not shake vigorously. WASTE: F/P - Black; E - Municipal Trash Bin Stable for 31 days at room temperature Expires in days from Date heparin sodium, Notes: porcine No Longer [place] porcine 2500 heparin Active 2018 [facility] UNT/ML Injectable Center Solution Dextrose 50% 12.5 gm, 25 [place] Longer [place] Syringe mL, Route: Active 2018 [facility] IVP, Drug Center Form: INJ, Dosing Weight 92, kg, PRN, PRN Blood Glucose Results, Start date: 12/27/18 15:14:00 CDT, Duration: 30 day, Stop date: 01/26/19 15:13:00 CDT, 0 Glucagon 1 mg, Route: No Longer [place] IM, Drug form: Active 2018 [facility] PDR/INJ, PRN, Center Dosing Weight 92, kg, PRN Blood Glucose Results, Start date: 12/27/18 15:14:00 CDT, Duration: 30 day, Stop date: 01/26/19 15:13:00 CDT, 0 Insulin regular Notes: (Same No Longer [facility] as: Humulin R) Active 2019 Medical Roll in palms Center of hands gently; Do not shake vigorously. WASTE: F/P - Black; E - Municipal Trash Bin Stable for 31 days at room temperature Expires in days from Date insulin, isophane Notes: (Same No Longer [facility] as: Humulin N) Active 2019 Medical Roll in palms Center of hands gently; Do not shake vigorously. WASTE: F/P - Black; E - Municipal Trash Bin Stable for 31 days at room temperature Expires in days from Date Zithromax 250 mg Notes: Take 1 No Longer [facility] oral tablet hour before or Active 2019 Medic al 2 hours after Center meals. (Same As: Zithromax) Lanolin 0.157 Notes: (Same No Longer [facility] MG/MG / Menthol as: Active 2019 Medical 0.0044 MG/MG / Calmoseptine) Mitch ter Petrolatum 0.24 MG/MG / Zinc Oxide 0.206 MG/MG Topical Ointment Famotidine Notes: (Same No Longer [place] as as: Pepcid) Active 2019 [facility] Midodrine Notes: (Same [place] Long[place] as:Proamatine) Active 2019 [facility] albumin human 5% Notes: LOT#: Inactive [facility] [place] [facility] intravenous 2019 Medica l solution Mfg: Center WASTE: F/P - Red; E -Red (Same as: Albuminar) "blood product derivative" Midodrine Notes: (Same Inactive [facility] as:Proamatine) 2019 [facility] Center azithromycin 500 Notes: Take 1 Inactive [facility] mg oral tablet hour before or 2019 Me dical 2 hours after Center meals. (Same As: Zithromax) Calcium Gluconate 3 gm, Route: Inactive [place] IV, 2019 Medical Continuous, Center Dosing Weight 92, kg, Start date: 12/26/18 9:00:00 CDT, Duration: 30 day, Stop date: 01/25/19 8:59:00 CDT albumin human 5% 2.25 Liter, Inactive [facility] intravenous Route: IV, 2019 Medical solution Dosing Weight Center 92, kg, ONCE, Start date: 12/26/18 8:41:00 CDT, Stop date: 12/26/18 8:41:00 CDT, Indication: Plasmapheresis Norepinephrine Notes: Not for No Longer [facility] direct Active 2019 Medical administration Center - DILUTE. Protect from light. (Same as:Levophed). Administer by either central venous catheter or peripherally-i nserted central catheter (PICC) line. Insulin regular Notes: Final No Longer [facility] 100 unit + Concentration Active 2019 [facility] 1unit/1ml Center WASTE: F/P - Black; E - Municipal Trash Bin Dextrose 50% 6.25 gm, 12.5 No Longer [facility] Syringe mL, Route: Active 2019 [facility] IVP, Drug Center Form: INJ, Dosing Weight 92, kg, PRN, PRN Abnormal Lab Result, Start date: 12/25/18 20:23:00 CDT, Duration: 30 day, Stop date: 01/24/19 20:22:00 CDT, 0 Famotidine Notes: (Same No Longer [place] as: Pepcid) Active 2019 Medical Center Mestinon Notes: (Same No Longer [facility] as: Mestinon) Active 2019 Medical [place] Sodium Chloride 3% Notes: SEE RT No Longer 12/25 [facility] inhalation DOCUMENTATION Active 2019 Medical solution (Same as: [place] Hypertonic Saline 3%, Inhalation) fondaparinux Notes: (Same No Longer [place] as: Arixtra) Active 2019 [facility] Center Albuterol 1 MG/ML Notes: SEE RT No Longer [facility] Inhalant Solution DOCUMENTATION Active 2019 Medical (Same as: [place] Proventil) Calcium Gluconate Notes: WASTE: Inactive [facility] F/P - Sink; E 2019 Medical [facility] Trash Bin albumin human 5% Notes: LOT#: Inactive [facility] intravenous M 2019 Medic al solution fg: [...] as:Synthroid) ocular lubricant Notes: (Same No Longer [place] as: Active 2018 Medical Lacri-Lube, Center Puralube, Duratears Naturale, Artificial Tears, and Tears Again ) Prednisone 50 MG 50 mg = 1 tab, No Longer [place] Oral Tablet PO, Daily, 0 Active 2018 Medical Refill(s) Center rosuvastatin 20 mg 20 mg = 1 tab, No Longer 11/30 [place] oral tablet PO, Bedtime, 0 Active 2018 Medic al Refill(s) Center ramipril 10 mg 10 mg = 1 cap, Active [place] oral capsule PO, Daily, 0 2018 Medica l Refill(s) Center Amlodipine 10 mg, PO, Active [facility] Daily, 0 2018 Medical Refill(s) Center Furosemide 80 mg, PO, No Longer [facility] Daily, 0 Active 2018 Medical Refill(s) Center Potassium Chloride 20 mEq, PO, Active H [place] Daily, 0 2018 Medical Refill(s) Center Pyridostigmine 60 mg, PO, Active [place] as Q8H, 0 2018 Medical Refill(s) Center sertraline 25 mg 25 mg = 1 tab, Active [facility] oral tablet PO, Daily, 0 2018 Medical Refill(s) Center Thyroxine 88 microgram, Active [facility] PO, Daily, 0 2018 Medical Refill(s) Center Alendronic acid 70 70 mg = 1 tab, Active [facility] MG Oral Tablet PO, 0 2018 Medical [Fosamax] Refill(s) Center Levemir SUB-Q, 0 No Longer [facility] Refill(s) Active 2019 [facility] Trulicity Pen SUB-Q, 0 Active [facility] Refill(s) 2019 [facility] Famotidine 20 mg, 2 mL, No Longer [place] as Route: IVP, Active 2019 Medical Drug form: Center INJ, Q12H, Dosing Weight 102.273, kg, Start date: 12/24/18 21:00:00 CDT, Duration: 30 day, Stop date: 01/23/19 9:00:00 CDT, 0 docusate sodium Notes: (Same No Longer [facility] [place] [facility] as: Colace) Active 2019 Medical Center sennosides, LONG-TERM Notes: (Same No Longer [facility] 8.6 MG Oral Tablet as: Senokot) Active 2019 [facility] Ceftriaxone Notes: No Longer [facility] MEDICATION Active 2019 Medical WASTE Center Product Size: 2000 mg Product Wasted: ___ mg Albuterol 0.833 Notes: (Same No Longer [facility] [place] [facility] MG/ML / as: Duoneb) Active 2019 [facility] Ipratropium [place] 0.167 MG/ML Inhalant Solution [DuoNeb] chlorhexidine Notes: (Same No Longer [facility] gluconate 1.2 As: Peridex) Active 2019 Medic al MG/ML Mouthwash [place] Flagyl 500 mg, 100 No Longer [facility] mL, Route: Active 2019 Medical IVPB, Drug Center form: INJ, ABXQ8H, Dosing Weight 102.273, kg, Start date: 12/24/18 19:00:00 CDT, Duration: 7 day, Stop date: 12/31/18 6:00:00 CDT, ABX Indication: Bacteremia, 0 Vancomycin 2001 mg: No Longer [facility] infuse over Active 2019 Medical 2.5 hours For Center adult patients only: Round to nearest 250 mg per medical staff approval MEDICATION WASTE Product Size: 1000 mg Product Wasted: ___ mg Tylenol 100.4 F, No Longer [facility] Start date: Active 2019 Medical 12/24/18 [place] 18:39:00 CDT, Duration: 30 day, Stop date: 01/23/19 18:38:00 CDT, 0 Zofran Notes: No Longer [place] MEDICATION Active 2018 Medical WASTE Center Product Size: 4 mg Product Wasted: ___ mg Fentanyl 1,000 No Longer [place] microgram, 20 Active 2018 Medical mL, Rate: Center Titrate, Start Dose: 50 microgram/hr, Titration: 25 microgram/hour every 15 minutes, Goal(s): RASS 0, Max Dose: 300 microgram/hr, Route: IV, Dosing Weight 102.273 kg, Total Volume: 20, Start date: 12/24/18 18:39:00 CDT, D... Potassium Chloride Notes: (Same No Longer [place] as: KCL) 2018 Medical Infuse no Center faster than 10 mEq/hr if given peripherally. sodium phosphate Notes: Infuse No Longer [facility] over 4 hour. 2018 Medical Do not infuse Center phosphorous concurrently in the same line as TPN or IVF that contains calcium. For double lumen central lines, phosphorous may be infused in a separate lumen from TPN. potassium Notes: (Same No Longer [facility] phosphate as: K Active 2018 [facility] Phosphate.) Center Do not infuse phosphorous concurrently in the same line as TPN or IVF that contains calcium. For double lumen central lines, phosphorous may be infused in a separate lumen from TPN. 1 mMol phoshate has 1.47 mEq potassium Infuse over 4 hours potassium Notes: (Same No Longer [facility] phosphate-sodium as: Phos-NaK) 2018 edical phosphate 250 Each 1.5 gm Center mg-280 mg-160 mg pkt has 250mg oral powder for phosphorous. reconstitution Mix w/2.5oz water and stir. Magnesium Sulfate Notes: WASTE: No Longer [facility] F/P - Sink; E Active 2018 [facility] Center Trash Bin Magnesium Oxide Notes: (Same No Longer [facility] as: Mag-Ox Active 2018 [facility] 400) Magnesium Center oxide [id number] elemental magnesium Dose=____mg magnesium oxide (___mg elemental magnesium) Calcium Gluconate Notes: WASTE: No Longer [facility] F/P - Sink; E Active 2019 [facility] [place] Trash Bin Calcium Carbonate Notes: (Same No Longer [place] 500 MG Chewable As: Tums) Active [...] 0 Glucagon 1 mg, Route: No Longer [facility] IM, Drug form: Active 2018 [facility] PDR/INJ, PRN, Center Dosing Weight 102.273, kg, PRN Blood Glucose Results, Start date: 12/24/18 18:37:00 CDT, Duration: 30 day, Stop date: 01/23/19 18:36:00 CDT, 0 chlorhexidine Notes: (Same No Longer [facility] gluconate 1.2 As: Peridex) Active 2018 Medic al MG/ML Mouthwash Center Insulin regular Notes: Roll in No Longer [place] palms of hands Active 2019 Medical gently; do not Center shake vigorously. (Same as: Humulin R) WASTE: F/P - Black; E - Municipal Trash Bin Stable for 31 days at room temperature Expires in days from Norepinephrine Notes: Not for No Longer [facility] direct Active 2019 Medical administration Center - DILUTE. Protect from light. (Same as:Levophed). Administer by either central venous catheter or peripherally-i nserted central catheter (PICC) line. Isolyte S PH 7.4 Notes: (Same No Longer [facility] 1,000 mL as: Isolyte S Active 2019 [facility] PH 7.4) Center Ibuprofen Notes: (Same Inactive [facility] as: Motrin) 2019 Medical "Do Not Crush" Center Give with food. Tylenol Notes: Max Inactive [facility] [place] acetaminophen 2019 Medical 4000 mg/day (4 Center gm/day). (Same as: Tylenol Extra Strength) Mestinon Notes: (Same Inactive [place] as: Mestinon) 2019 Medical Center Insulin Lispro Notes: (Same Inactive [facility] as: Humalog) 2019 Medical Roll in [...] Inactive [place] as Syringe mL, Route: 2019 [facility] IVP, Drug Center Form: INJ, Dosing Weight 91.818, kg, PRN, PRN Blood Glucose Results, Start date: 09/23/18 3:43:00 CDT, Duration: 30 day, Stop date: 10/23/18 3:42:00 CDT Arixtra Notes: (Same No Longer [place] as: Arixtra) Active 2019 Medical Center Famotidine Notes: (Same No Longer [place] as: Pepcid) Active 2019 Medical Center sennosides, LONG-TERM Notes: (Same No Longer H [place] 8.6 MG Oral Tablet as: Senokot) Active 2019 Medical Center ropinirole Notes: (Same No Longer [place] as: Requip) Active 2019 Medical Center Ramipril Notes: (Same No Longer [place] as:Altace) Active 2019 Medical Center Prednisone Notes: Take [place] Longer [place] with food. Active 2019 Medical Center Furosemide 20 MG Notes: (Same No Longer [facility] Oral Tablet as: Lasix) Active 2019 Medical May cause GI Center upset. Give with food or milk. Amlodipine Notes: (Same No Longer [place] as: Norvasc) Active 2019 Medical Center Docusate Sodium 50 Notes: (Same No Longer [place] MG / sennosides, as Senokot-S) Active 2018 edical LONG-TERM 8.6 MG Oral Equiv. to [place] Tablet Cassidy-Colace. Levothroid 88 mcg 88 microgram = Active Dougie (0.088 mg) oral 1 tab, PO, 2019 Medic al tablet Daily, 0 Center Refill(s) rosuvastatin Notes: (Same No Longer [place] As: Crestor) Active 2019 [facility] Insulin Glargine 20 unit, 0.2 No Longer [place] 100 UNT/ML mL, Route: Active 2018 Medical Injectable SUB-Q, Drug Center Solution form: SOLN, Bedtime, Dosing Weight 91.818, kg, Start date: 09/21/18 21:00:00 CDT, Duration: 30 day, Stop date: 10/20/18 21:00:00 CDT Sertraline Notes: (Same No Longer [place] as: Zoloft) Active 2019 [facility] Pyridostigmine Notes: (Same No Longer [place] as: Mestinon) Active 2019 [facility] Dextrose 50% 25 gm, 50 mL, No Longer [place] Syringe Route: IVP, Active 2018 Medical Drug Form: Center INJ, Dosing Weight 91.818, kg, PRN, PRN Abnormal Lab Result, Start date: 09/21/18 18:24:00 CDT, Duration: 30 day, Stop date: 10/21/18 18:23:00 CDT Regular Insulin, Notes: (Same No Longer [place] Human 100 UNT/ML as: Humulin R) [...] Dougie Therapy Instructions, 2019 Medical MISC, ONCALL, [place] Evaluate and Treat __3_ times per week for __4__ weeks, # 1 bag, 0 Refill(s) Physical Therapy See On Hold [place] s Instructions, 2018 [facility], [place] Evaluate and Treat _3__ times per week for __4__ weeks, # 1 bag, 0 Refill(s) Ramipril Notes: (Same Inactive [place] as:Altace) 2019 [facility] Center Furosemide 20 MG 20 mg = 1 tab, On Hold [place] Oral Tablet PO, Every 2019 Medical Other Day, # Center 15 tab, 3 Refill(s) amLODIPine 10 mg 10 mg = 1 tab, On Hold [facility] oral tablet PO, Daily, # 2019 Medical 30 tab, 3 Center Refill(s) predniSONE 20 mg 60 mg = 3 tab, On Hold [facility] oral tablet PO, Daily, X 2019 Medical 30 day, # 90 Center tab, 0 Refill(s) pyridostigmine 60 60 mg = 1 tab, On Hold [place] mg oral tablet PO, Q8Hnow, # 2019 Med ical 90 tab, 3 Center Refill(s) ramipril 5 mg oral 10 mg = 2 cap, On Hold [facility] capsule PO, Daily, # 2019 Medical 60 cap, 3 Center Refill(s) sennosides, LONG-TERM 8.6 mg = 1 [place] 8.6 MG Oral Tablet tab, PO, BID, 2019 Medical X 30 day, # 60 Center tab, 3 Refill(s) sertraline 25 mg 25 mg = 1 tab, On Hold [facility] oral tablet PO, Q24H, # 30 2019 Medic al tab, 0 Center Refill(s) insulin, isophane Notes: (Same No Longer [facility] as: Humulin N) Active 2018 Medical [...] Medical 30 cap, 1 Center Refill(s), Pharmacy: [facility]/pharmacy #[id number] metoprolol 25 mg = 1 [...] 1 Center Refill(s), Pharmacy: [id number] sennosides, LONG-TERM 8.6 mg = 1 No Longer [place] 8.6 MG Oral Tablet tab, PO, BID, Active 2019 Medical # 60 tab, 0 Center Refill(s), Pharmacy: [facility]acy [facility][id number] pyridostigmine 60 60 mg = 1 tab, No Longer 09/17 [place] mg oral tablet PO, Q8Hnow, # Active 2019 Med ical 90 tab, 1 Center Refill(s), Pharmacy: [facility]/pharmacy #[id number] predniSONE 20 mg 60 mg = 3 tab, No Longer [place] oral tablet PO, Daily, # Active 2019 Medical 30 tab, 1 Center Refill(s), Pharmacy: [facility]/pharmacy #[id number] Insulin regular Notes: (Same No Longer [facility] as: Humulin R) Active 2019 Medical Roll in palms Center of hands gently; Do not shake vigorously. WASTE: F/P - Black; E - Municipal Trash Bin Stable for 31 days at room temperature Expires in days from Date Glucagon 1 mg, Route: No Longer [place] IM, Drug form: Active 2019 Medical PDR/INJ, PRN, Center Dosing Weight 91.378, kg, PRN Blood Glucose Results, Start date: 09/17/18 18:52:00 CDT, Duration: 30 day, Stop date: 10/17/18 18:51:00 CDT Dextrose 50% in 25 gm, 50 mL, No Longer [place] Water (bolus) IV Route: IVP, Active 2019 Med ical Drug Form: Center INJ, Dosing Weight 91.378, kg, PRN, PRN Blood Glucose Results, Start date: 09/17/18 18:52:00 CDT, Duration: 30 day, Stop date: 10/17/18 18:51:00 CDT Melatonin 0.25 1 mg, Route: Inactive [place] mg/mL oral liquid PO, Dosing 2019 Med ical Weight 91.378, Center kg, Bedtime, Start date: 09/16/18 21:00:00 CDT, Duration: 30 day, Stop date: 10/15/18 21:00:00 CDT insulin, isophane Notes: (Same No Longer [place] as: Humulin N) Active 2019 Medical Roll in palms Center of hands gently; Do not shake vigorously. WASTE: F/P - Black; E - Municipal Trash Bin Stable for 31 days at room temperature Expires in days from Date Amlodipine Notes: (Same No Longer [place] as: Norvasc) Active 2019 Medical Center melatonin 1 mg/mL 1 mg, 1 mL, Inactive H [place] oral solution Route: PO, 2019 Medical Drug Form: Center EYADQ, Dosing Weight 91.378, kg, ONCE, STAT, Start date: 09/16/18 0:53:00 CDT, Stop date: 09/16/18 0:53:00 CDT insulin, isophane Notes: (Same Inactive [facility] as: Humulin N) 2019 Medical Roll in palms Center of hands gently; Do not shake vigorously. WASTE: F/P - Black; E - Municipal Trash Bin Stable for 31 days at room temperature Expires in days from Date Insulin regular Notes: (Same Inactive [facility] as: Humulin R) 2019 Medical Roll in palms Center of hands gently; Do not shake vigorously. WASTE: F/P - Black; E - Municipal Trash Bin Stable for 31 days at room temperature Expires in days from Date Miralax Notes: No Longer [facility] Dissolve in 8 2018 Medical oz of water or Center juice. (Same as: Miralax) lansoprazole Notes: Take 1 No Longer [facility] hour before or Active 2018 Medical 2 hours after Center meal; Expires in 14 days. Shake well before use. (Same as:Prevacid) Compounded Product - formulation not commercially available insulin, isophane Notes: (Same Inactive [facility] as: Humulin N) 2019 Medical Roll in palms Center of hands gently; Do not shake vigorously. WASTE: F/P - Black; E - Municipal Trash Bin Stable for 31 days at room temperature Expires in days from Date Saline Flush 0.9% Notes: (Same No Longer [facility] as: BD Active 2019 Medical Posiflush) Center Lasix Notes: (Same Inactive [facility] as: Lasix) 2019 Medical MEDICATION Center WASTE Product Size: 40 mg Product Wasted: ___ mg docusate sodium Notes: (Same No Longer [place] 100 mg oral as: Colace) Active 2018 Medical capsule (Do Not Crush) Center sennosides, LONG-TERM Notes: (Same No Longer [place] as: Senokot) Active 2019 [facility] Center insulin, isophane Notes: (Same Inactive as: [...] [place] Syringe mL, Route: Active 2018 [facility] IVP, Drug Center Form: INJ, Dosing Weight 91.378, kg, PRN, PRN Blood Glucose Results, Start date: 09/14/18 16:20:00 CDT, Duration: 30 day, Stop date: 10/14/18 16:19:00 CDT Saline Flush 0.9% Notes: (Same No Longer [place] as: BD Active 2018 Medical Posiflush) Center Nystatin 100 Notes: (Same No Longer [place] UNT/MG Topical as:Mycostatin, Active 2018 Md dical Powder Nilstat) For Center external use only. Amlodipine Notes: (Same No Longer [place] as: Norvasc) Active 2019 Medical Center Lasix Notes: (Same Inactive [place] as: Lasix) 2019 Medical MEDICATION Center WASTE Product Size: 40 mg Product Wasted: ___ mg Albuterol 0.833 Notes: (Same No Longer H [place] MG/ML / as: Duoneb) Active 2019 [facility] Ipratropium Center [place] 0.167 MG/ML Inhalant Solution [DuoNeb] Potassium Chloride Notes: (Same Inactive [place] 1.33 MEQ/ML Oral as: Potassium 2018 edical Solution Chloride) Center Sertraline Notes: (Same No Longer [place] as: Zoloft) Active 2019 [facility] Immunoglobulin G 25 gm, Route: No Longer [place] IV, Q24H, Active 2019 [facility] Dosing Weight Center 91.378, kg, Start date: 09/13/18 21:00:00 CDT, Duration: 1 day, Stop date: 09/13/18 21:00:00 CDT, Indication: Myasthenia gravis metoprolol Notes: (Same No Longer [place] as tartrate as: Lopressor) Active 2019 [facility] Gamunex-C 25 gm + Notes: WASTE: Inactive [place] empty container 1 F/P - Red; E 2019 M edical bag -Red Lot Center # ____Mfg: (Gamunex - C) "blood product derivative" iodixanol 100 mL, Route: Inactive [place] IVP, Drug 2019 Medical Form: SOLN, [place] Dosing Weight 91.378, kg, ONCALL, STAT, Start date: 09/13/18 11:50:00 CDT, Duration: 1 doses or times, Dose = 2.2ml/kg, Max dose = 100ml -- "To be infused by Radiology Staff ONLY" Prednisone Notes: Take No Longer [place] with food. Active 2019 Medical [place] pantoprazole Notes: For IV No Longer [place] push Active 2019 [facility] reconstitute Center with 10 ml 0.9% sodium chloride and push over 2 minutes. (Same as: Protonix) chlorhexidine Notes: (Same No Longer [place] gluconate 1.2 As: Peridex) Active 2018 Medic al MG/ML Mouthwash Center Norepinephrine Notes: Not for Inactive [place] direct 2019 Medical administration Center - DILUTE. Protect from light. (Same as:Levophed). Administer by either central venous catheter or peripherally-i nserted central catheter (PICC) line. propofol 10 mg/mL Notes: If No Longer [place] (Titrate.) IV Diprivan - Active 2018 Medical 1,000 mg change bottle Center & tubing every 12 hr Per state nursing law propofol can only be given by a nurse if patient is intubated or being intubated (unless the nurse is a SECURITY AND COMPLIANCE ANALYST). Same as: Diprivan Rocuronium Notes: ([facility] Z[facility] 2019 Medical Center Fentanyl Notes: (Same Inactive [place] as: Sublimaze) 2019 [facility] Preservative Center free. Propofol Notes: If Inactive [place] Diprivan - 2019 Medical change bottle Center & tubing every 12 hr Per state nursing law propofol can only be given by a nurse if patient is intubated or being intubated (unless the nurse is a SECURITY AND COMPLIANCE ANALYST). Same as: Diprivan ocular lubricant Notes: (Same No Longer [place] as: Active 2018 Medical Lacri-Lube, Center Puralube, Duratears Naturale, Artificial Tears, and Tears Again ) normal saline 0.9% 1,000 mL, No Longer [place] IV 1,000 mL Rate: 75 Active 2019 Medical ml/hr, Infuse Center over: 13.3 hr, Route: IV, Dosing Weight 91.378 kg, Total Volume: 1,000, Start date: 09/13/18 5:43:00 CDT, Duration: 30 day, Stop date: 10/13/18 5:42:00 CDT, 1.99, m2 chlorhexidine Notes: (Same No Longer [place] gluconate 1.2 As: Peridex) Active 2018 Medic al MG/ML Mouthwash Center Insulin regular Notes: Final No Longer [place] 100 unit + Concentration Active 2019 Medical 1unit/1ml Center WASTE: F/P - Black; E - Municipal Trash Bin Dextrose 50% 6.25 gm, 12.5 No Longer [place] Syringe mL, Route: Active 2019 Medical IVP, Drug Center Form: INJ, Dosing Weight 91.378, kg, PRN, PRN Abnormal Lab Result, Start date: 09/13/18 1:52:00 CDT, Duration: 30 day, Stop date: 10/13/18 1:51:00 CDT Adult Parenteral Notes: Must No Longer [facility] Nutrition Custom - use 1.2 micron Active 2019 Medical Peripheral (PPN filter AND Cente r not TPN) 2,040 mL Lipids should not be administered to patients who are allergic to soy, fish, egg or peanuts. Immunoglobulin G 50 gm, Route: Inactive [place] IV, Q24H, 2019 Medical Dosing Weight Center 91.378, kg, Start date: 09/12/18 21:00:00 CDT, Duration: 1 day, Stop date: 09/12/18 21:00:00 CDT, Indication: Myasthenia gravis Gamunex-C 75 gm + Route: IVPB, Inactive [place] empty container 1 Drug form: 2019 Med ical bag SOLN, Bedtime, Center Start date: 09/12/18 21:00:00 CDT, Duration: 1 doses or times, Stop date: 09/12/18 21:00:00 CDT, Indication: Myasthenia gravis Gamunex-C 50 gm + Notes: WASTE: Inactive [place] empty container 1 F/P - Red; E 2019 M edical bag -Red Lot Center # ____Mfg: (Gamunex - C) Non-Formulary "blood product derivative" Pyridostigmine Notes: (Same No Longer [place] as: Mestinon) Active 2019 [facility] Calcium Carbonate Notes: (Same No Longer [place] 500 MG Chewable As: Tums) Active 2019 Medica l Tablet Calcium Center Carbonate 500 mg = 200 mg elemental calcium Dose = mg calcium carbonate ( mg elemental calcium) Calcium Gluconate Notes: WASTE: No Longer [place] F/P - Sink; E Active 2018 [facility] [place] [facility] [place] [facility] Magnesium Oxide Notes: (Same No Longer 09/12/ H [place] as: Mag-Ox Active 2018 Medical 400) Magnesium Center oxide [id number] elemental magnesium Dose=____mg magnesium oxide (___mg elemental magnesium) Magnesium Sulfate Notes: WASTE: No Longer [place] F/P - Sink; E Active 2018 [facility] [place] [facility] [place] [facility] potassium Notes: ([facility] phosphate-sodium as: K-Phos Active 2018 [facility] roger phosphate 250 Neutral, [place] mg-280 mg-160 mg Phospha 250 oral powder for Neutral) reconstitution Potassium Chloride Notes: (Same No Longer [place] as: K-Dur 20) Active 2018 [facility] "Do Not Crush" Center Give with food and full glass of water For patients unable to swallow tablet, dissolve in one half glass of water. Allow about 2 minutes for the tablets to disintegrate. Stir before giving to prepare slurry and administer. Please exclude Patient’ s with feeding tube less than 14 Romanian (Dobhoff, J-tube etc) and pediatric and patients. sodium phosphate Notes: Infuse No Longer [place] over 4 hour. Active 2018 [facility] Do not infuse Center phosphorous concurrently in the same line as TPN or IVF that contains calcium. For double lumen central lines, phosphorous may be infused in a separate lumen from TPN. potassium Notes: (Same No Longer [facility] s phosphate as: K Active 2018 Medical Phosphate.) [place] Do not infuse phosphorous concurrently in the same line as TPN or IVF that contains calcium. For double lumen central lines, phosphorous may be infused in a separate lumen from TPN. 1 mMol phoshate has 1.47 mEq potassium Infuse over 4 hours benzocaine topical Notes: (Same No Longer [place] gel As: Maximum Active 2018 Medical Strength [facility] Orajel ) Immunoglobulin G 75 gm, Route: Inactive [place] IV, Drug form: 2019 Medical INJ, Q24H, [place] Dosing Weight 91.378, kg, Start date: 09/12/18 12:00:00 CDT, Duration: 1 doses or times, Stop date: 09/12/18 12:00:00 CDT, Indication: Myasthenia gravis Magnesium Sulfate Notes: WASTE: Inactive [place] F/P - Sink; E 2018 [facility] [place] [facility] [place] [facility] Calcium Gluconate Notes: WASTE: Inactive [place] F/P - Sink; E 2019 [facility] [place] [facility] [place] [facility] Pyridostigmine Notes: (Same No Longer [place] as: Mestinon) Active 2019 [facility] Bacitracin 1 appl, Route: No Longer [place] RIGHT EYE, Active 2019 [facility] Q4H, Drug Center form: OINT, Start date: [...] No Longer [place] as: Active 2019 [facility] Apresoline) Center metoprolol Notes: (Same No Longer [place] as extended release as: Toprol XL) Active 2019 [facility] split Center tab, but do not crush. Ramipril Notes: (Same No Longer [place] as:Altace) Active 2019 Medical Center fondaparinux Notes: (Same No Longer [place] as: Arixtra) Active 2019 Medical Center Amlodipine Notes: (Same No Longer [place] as as: Norvasc) Active 2019 Medical [place] Hydrochlorothiazid Notes: (Same Inactive [place] e as: 2019 Medical Hydrodiuril) Center With food. Docusate Sodium 50 Notes: (Same No Longer [place] MG / sennosides, as Senokot-S) Active 2019 edical LONG-TERM 8.6 MG Oral Equiv. to Center Tablet Cassidy-Colace. Furosemide 20 MG Notes: (Same No Longer [facility] Oral Tablet as: Lasix) Active 2019 Medical May cause GI Center upset. Give with food or milk. Gamunex-C 25 gm + Notes: For No Longer H [place] empty container 1 adults: use Active 2018 Md dical bag IBW of XX used Center for XX mg/kg per protocol WASTE: F/P - Red; E -Red Lot # ____Mfg: (Gamunex - C) "blood product derivative" rosuvastatin Notes: (Same Inactive [place] As: Crestor) 2019 Medical [place] heparin sodium, Notes: porcine Inactive [facility] porcine 2500 heparin 2019 Medical UNT/ML Injectable Center Solution Lacri-Lube Notes: (Same No Longer [place] as as: Active 2019 Medical Lacri-Lube, Center Puralube, Duratears Naturale, Artificial Tears, and Tears Again ) Pyridostigmine Notes: (Same No Longer 09/10[facility] as: Mestinon) Active 2019 Medical [place] Saline Flush 0.9% Notes: (Same No Longer 09/10[facility] as: BD Active 2019 Medical Posiflush) Center Benadryl Notes: (Same No Longer [facility] as: Benadryl) Active 2019 Medical Center Solu-Medrol Notes: (Same No Longer [facility] [place] as:Solu-MEDROL Active 2019 [facility] , A-Methapred) Center Zofran Notes: (Same No Longer [facility] as: Zofran) Active 2019 Medical MEDICATION Center WASTE Product Size: 4 mg Product Wasted: ___ mg Immunoglobulin G 36 gm, Route: Inactive [facility] IVPB, Drug 2019 Medical form: SOLN, [place] Daily, Dosing Weight 91.378, kg, Start date: 09/10/18 16:42:00 CDT, Duration: 5 day, Stop date: 09/15/18 9:00:00 CDT, Indication: Other see comments Insulin regular 60 units) No Longer [facility] WASTE: F/P - Active 2019 Medical Black; E - Center Municipal Trash Bin Stable for 28 days at room temperature Expires in days from Date Glucagon 1 mg, Route: No Longer [place] IM, Drug form: Active 2018 Medical [...] Saline Flush 0.9% Notes: (Same No Longer [place] as: BD Active 2018 [facility] Posiflush) [place] Dextrose 5% with 1,000 mL, No Longer [place] 0.9% NaCl IV 1,000 Rate: 75 Active 2019 Medi roger mL ml/hr, Infuse Center over: 13.3 hr, Route: IV, Dosing Weight 91.378 kg, Total Volume: 1,000, Start date: 09/10/18 0:20:00 CDT, Duration: 30 day, Stop date: 10/10/18 0:19:00 CDT, 1.99, m2 Streptococcus Notes: Shake No Longer [place] pneumoniae well prior to 2018 Medical serotype 1 use (Same as: [place] capsular antigen Prevnar 13) diphtheria [id number] protein conjugate vaccine / Streptococcus pneumoniae serotype 14 capsular antigen diphtheria [id number] protein conjugate vaccine / Streptococcus pneumoniae serotype 18C capsular antigen d insulin glargine Notes: (Same Inactive H as: Lanmadelynus) Do 2018 [facility] not hold [facility] insulin without contacting prescriber WASTE: F/P - Black; E - Municipal Trash Bin "single patient use only" Insulin Glargine 10 unit, On Hold 100 UNT/ML SUB-Q, 2019 [facility] Injectable Bedtime, 0 [facility] Solution Refill(s) Bacitracin 0.5 1 appl, Route: Inactive H UNT/MG Ophthalmic RIGHT EYE, 2019 [facility] orial Ointment TID, Drug [facility] form: OINT, Start date: 09/09/18 9:00:00 CDT, Duration: 30 day, Stop date: 10/08/18 17:00:00 CDT D5W 1/2NS 1,000 mL 1,000 mL, Inactive Rate: 75 2019 [facility] ml/hr, Infuse [facility] over: 13.3 hr, Route: IV, Dosing Weight 94.3 kg, Total Volume: 1,000, Start date: 09/09/18 7:53:00 CDT, Duration: 30 day, Stop date: 10/09/18 7:52:00 CDT, 2.02, m2 Acyclovir Notes: No Longer MEDICATION Active 2018 [facility] W[address]E [facility] Product Size: 500 mg Product Wasted: _0__ mg 0.5 ML dulaglutide SUB-Q, every On Hold 3 MG/ML Prefilled Thursday, 2018 [facility] rial Syringe Refill(s) [facility] [Trulicity] Insulin Glargine 20 unit, On Hold 100 UNT/ML SUB-Q, 2019 [facility] Injectable Bedtime, # 3 [facility] Solution mL, 3 Refill(s) heparin Notes: porcine No Longer heparin Active 2018 [facility] Dextrose 50% 12.5 gm, 25 No Longer Syringe mL, Route: Active 2018 [facility] IVP, Drug [facility] Form: INJ, Dosing Weight 94.3, kg, PRN, PRN Blood Glucose Results, Start date: 09/08/18 9:49:00 CDT, Duration: 30 day, Stop date: 10/08/18 9:48:00 CDT Glucagon 1 mg, Route: No Longer IM, Drug form: Active 2019 [facility] PDR/INJ, PRN, City Dosing Weight 94.3, kg, PRN Blood Glucose Results, Start date: 09/08/18 9:49:00 CDT, Duration: 30 day, Stop date: 10/08/18 9:48:00 CDT Furosemide 20 MG Notes: (Same No Longer [facility] Oral Tablet as: Lasix) Active 2019 Medical May cause GI Center upset. Give with food or milk. Furosemide 20 MG 40 mg, Route: Inactive [facility] Oral Tablet PO, Drug form: 2019 Medic al TAB, Daily, Center Dosing Weight 111.6, kg, Start date: 08/19/18 21:00:00 CDT, Duration: 30 day, Stop date: 09/18/18 9:00:00 CDT clopidogrel 75 mg 75 mg = 1 tab, Active [place] oral tablet PO, Daily, # 2019 Medical 90 tab, 3 Center Refill(s), Pharmacy: [facility] [id number] rosuvastatin 10 mg 20 mg = 2 tab, Active [facility] oral tablet PO, Bedtime, # 2019 Medic al 180 tab, 3 Center Refill(s) ramipril 5 mg oral 10 mg = 2 cap, Active [facility] Hospital capsule PO, Q24H, # 2019 Medical 180 cap, 3 Center Refill(s) Insulin Glargine 20 unit, Active [place] as 100 UNT/ML SUB-Q, QPM, # 2019 Medical Injectable 15 mL, 3 Center Solution Refill(s) Furosemide 20 MG 20 mg = 1 tab, Active [facility] Oral Tablet PO, Every 2019 Medical Other Day, # Center 15 tab, 0 Refill(s) amLODIPine 5 mg 5 mg = 1 tab, Active [facility] oral tablet PO, Daily, # 2019 Medical 90 tab, 3 Center Refill(s) metoprolol 25 mg = 1 tab, Active [place] as tartrate 25 mg PO, BID, # 60 2019 Med ical oral tablet tab, 0 Center Refill(s) Furosemide 20 MG Notes: (Same Inactive 08/19/ H [place] Oral Tablet as: Lasix) 2019 Medical May cause GI Center upset. Give with food or milk. Ramipril Notes: (Same Inactive [facility] as:Altace) 2019 Medical Center Hydralazine 10 [...] 21:00:00 CDT Crestor Notes: (Same No Longer [facility] As: Crestor) Active 2019 Medical Center insulin glargine Notes: Same No Longer [facility] as: Lantus) Do Active 2019 [facility] Center insulin without contacting prescriber WASTE: F/P - Black; E - Municipal Trash Bin Ramipril Notes: (Same No Longer [place] as:Altace) Active 2019 Medical Center Amlodipine Notes: (Same No Longer [place] as: Norvasc) Active 2019 Medical [facility] loperamide [place]: [place] Imodium 2019 [facility] Imodium A-D EZ 2 mg, Route: Inactive [facility] Chews CHEW, Dosing 2019 Medical Weight 111.6, Center kg, BID, PRN as needed for loose stool, Start date: 08/17/18 13:34:00 CDT, Duration: 30 day, Stop date: 09/16/18 13:33:00 CDT Plavix Notes: (Same No Longer [facility] As: Plavix) Active 2019 Medical [place] benzonatate Notes: (Same [place] Long[place] As: Tessalon Active 2019 [facility] Perles) "Do Center Not Crush" Insulin regular 60 units) No Longer [facility] WASTE: F/P - Active 2018 Medical Black; E - Center Municipal Trash Bin Stable for 28 days at room temperature Expires in days from Date 3 ML Insulin 40 unit, No Longer Dougie Glargine 100 SUB-Q, Active 2019 Medical UNT/ML Prefilled Bedtime, # 3 Ce nter Syringe [Lantus] mL, 3 Refill(s) Insulin regular 60 units) Inactive Duogie WASTE: F/P - 2019 Medical Black; E - Center [facility]ash [facility] Stable for 28 days at room temperature Expires in days from Date Dextrose 50% in 12.5 gm, 25 No Longer [facility] Water (bolus) IV mL, Route: Active 2018 [facility] IVP, Drug Center Form: INJ, Dosing Weight 113.636, kg, PRN, PRN Blood Glucose Results, Start date: 08/17/18 2:18:00 CDT, Duration: 30 day, Stop date: 09/16/18 2:17:00 CDT Glucagon 1 mg, Route: No Longer [facility] IM, Drug form: Active 2018 [facility] PDR/INJ, PRN, Center Dosing Weight 113.636, kg, PRN Blood Glucose Results, Start date: 08/17/18 2:18:00 CDT, Duration: 30 day, Stop date: 09/16/18 2:17:00 CDT Bisacodyl Notes: ([facility] As: Dulcolax, Active 2018 [facility] Bisco-Lax) [place] Labetalol 20 mg, 4 mL, No Longer Sheldon alexis Route: IVP, Active 2018 Medical Drug form: [place] INJ, Q10Min, Dosing Weight 113.636, kg, PRN Hypertension, Start date: 08/16/18 23:38:00 CDT, Duration: 30 day, Stop date: 09/15/18 23:37:00 CDT iodixanol 60 mL, Route: Inactive [facility] IVP, Drug 2018 Medical Form: SOLN, [place] Dosing Weight 113.636, kg, ONCALL, STAT, Start date: 08/16/18 20:39:00 CDT, Duration: 1 doses or times, Dose = 2.2ml/kg, Max dose = 100ml -- "To be infused by Radiology Staff ONLY" metoprolol 25 mg 25 mg, 1 tab, PO Active Heránn H Dougie oral tablet PO, BID, 60 2010 Medical tab, Center Substitution Allowed, TAB metoprolol 25 mg, 1 tab, PO [place] Longer [place] Route: PO, Active 2010 Medical Drug form: Center TAB, BID, Start date: 03/25/11 9:00:00, Duration: 30 day, Stop date: 04/23/11 17:00:00 hydrALAZINE 10 mg, 0.5 mL, IV No Longer Hernán [facility] Route: IV, Active 2010 Medical Drug form: [place] INJ, Q4H, PRN Elevated BP, Start date: 03/24/11 18:14:00, Duration: 30 day, Stop date: 04/23/11 18:13:00, Systolic Blood pressure greater than 160 mmHg magnesium sulfate 2 gm, 50 mL, IVPB No Longer Hernán [facility] Route: IVPB, Active 2010 Medical Drug form: [place] INJ, ONCE, Total dose = 2 gm, Start date: 03/24/11 17:59:00, Duration: 1 doses or times, Stop date: 03/24/11 17:59:00 NS 1,000 mL 1,000 mL, IV No Longer Hernán [facility] Rate: 100 Active 2010 Medical ml/hr, Infuse Center over: 10 hr, Route: IV, Total Volume: 1,000, Start date: 03/24/11 17:56:00, Duration: 30 day, Stop date: 04/23/11 17:55:00 Novolin N 10 unit, 0.1 SUB-Q No Longer [place] mL, Route: Active 2010 Medical SUB-Q, Drug Center form: INJ, BID, Start date: 03/24/11 9:00:00, Duration: 30 day, Stop date: 04/22/11 17:00:00 [place] Thyroid 120 mg, 2 tab, PO No Longer Hernán [facility] Route: PO, Active 2010 Medical Drug form: [place] TAB, Before Breakfast, Start date: 03/24/11 8:30:00, Duration: 30 day, Stop date: 04/23/11 7:30:00 potassium chloride 40 mEq, 2 tab, PO No Longer Hernán 03/02 [facility] Route: PO, Active 2010 Medical Drug form: [place] ERTAB, ONCE, Start date: 03/23/11 19:12:00, Stop date: 03/23/11 19:12:00 senna 8.6 mg oral 8.6 mg, 1 tab, PO No Longer Hernán 03/23 [facility] tablet Route: PO, Active 2010 Medical Drug Form: [place] TAB, Daily, Start date: 03/23/11 9:00:00, Duration: 30 day, Stop date: 04/21/11 9:00:00 diphenhydrAMINE 25 mg, 1 cap, PO No Longer Hernán [facility] Route: PO, Active 2010 Medical Drug form: Center CAP, Q6H, PRN Itching, Start date: 03/23/11 7:37:00, Duration: 30 day, Stop date: 04/22/11 7:36:00 [place] Thyroid 120 mg, 0.5 PO No Longer Hernán [facility] tab, Route: Active 2010 Medical PO, Drug form: Center TAB, Before Breakfast, Start date: 03/23/11 7:30:00, Duration: 30 day, Stop date: 04/21/11 7:30:00 heparin 5,000 unit, 1 SUB-Q No Longer Hernán [facility] mL, Route: Active 2010 Medical SUB-Q, Drug Center form: INJ, Q12H, Start date: 03/22/11 21:00:00, Duration: 30 day, Stop date: 04/21/11 9:00:00 Crestor 20 mg, 2 tab, PO No Longer Hernán [facility] Route: PO, Active 2010 Medical Drug form: Center TAB, Bedtime, Start date: 03/22/11 21:00:00, Duration: 30 day, Stop date: 04/20/11 21:00:00 Keppra 500 mg oral 500 mg, 1 tab, PO No Longer Hernán 03/02 [facility] tablet Route: PO, Active 2010 Medical Drug form: Center TAB, Q12H, Start date: 03/22/11 21:00:00, Duration: 30 day, Stop date: 04/21/11 9:00:00 Bunola 5/325 oral 1 tab, Route: PO No Longer Hernán [facility] tablet PO, Drug Form: Active 2010 [...] Route: PO, Active 2010 Medical Drug form: [place] TAB, BID, Start date: 03/22/11 17:00:00, Duration: 30 day, Stop date: 04/21/11 9:00:00 metoprolol 12.5 mg, 1 ea, PO No Longer [place] Route: PO, Active 2010 Medical Drug form: [place] TAB, BID, Start date: 03/22/11 17:00:00, Duration: 30 day, Stop date: 04/21/11 9:00:00 docusate sodium 100 mg, 1 cap, PO No Longer Hernán [place] 100 mg oral Route: PO, Active 2010 Medical capsule Drug form: [place] CAP, BID, Start date: 03/22/11 17:00:00, Duration: [...] Route: IVP, Active 2010 Medical Drug Form: [place] INJ, PRN, PRN Blood Glucose Results, Start date: 03/22/11 16:28:00, Duration: 30 day, Stop date: 04/21/11 15:27:00 glucagon 1 mg, Route: IM No Longer Hernán Dougie IM, Drug form: Active 2010 Medical PDR/INJ, PRN, [place] PRN Blood Glucose Results, Priority: STAT, Start date: 03/22/11 16:28:00, Duration: 30 day, Stop date: 04/21/11 15:27:00 calcium carbonate 500 mg, 1 tab, PO No Longer Hernán 03/22 Dougie Route: PO, Active 2010 Medical Drug form: [place] CHEWTAB, TID, PRN as needed for indigestion, Start date: 03/22/11 16:19:00, Duration: 30 day, Stop date: 04/21/11 16:18:00 ondansetron 4 mg, 2 mL, IVP No Longer Dum[place] as Route: IVP, Active 2010 Medical Drug form: [place] INJ, ONCE, Priority: STAT, Start date: 03/22/11 10:12:00, Stop date: 03/22/11 10:12:00 morphine Sulfate 4 mg, 1 mL, IVP No Longer Dumont 03/22[facility] Route: IVP, Active 2010 Medical Drug form: [place] INJ, ONCE, Priority: STAT, Start date: 03/22/11 10:11:00, Stop date: 03/22/11 10:11:00 magnesium oxide 400 mg, 1 tab, PO Active Marlonimileyad Dougie 400 mg oral tablet PO, BID, 2010 Me dical tab, Center Substitution Allowed Benadryl 25 mg, 1 cap, PO No Longer Neymar [place]mana s Route: PO, Active 2010 Medical Drug form: [place] CAP, Q4H, PRN Itching, Start date: 03/15/11 6:21:00, Duration: 30 day, Stop date: 04/14/11 6:20:00 trazodone 50 mg 50 mg, 1 tab, PO No Longer Marlonimileyad Dougie oral tablet Route: PO, Active 2010 Medical Drug form: [place] TAB, Bedtime, Start date: 03/14/11 21:00:00, Duration: 30 day, Stop date: 04/12/11 21:00:00 NS 1,000 mL 1,000 mL, IV No Longer Alikhan Dougie Rate: 75 Active 2010 Medical ml/hr, Infuse [place] over: 13.3 hr, Route: IV, Total Volume: 1,000, Start date: 03/14/11 17:02:00, Duration: 30 day, Stop date: 04/13/11 17:01:00 senna 8.6 mg oral 8.6 mg, 1 tab, PO No Longer Korimilli Dougie tablet Route: PO, Active 2010 Medical Drug Form: Center TAB, Daily, Start date: 03/14/11 9:00:00, Duration: 30 day, Stop date: 04/12/11 9:00:00 metoprolol 12.5 mg, 1 ea, PO No Longer [place] Dougie Route: PO, Active 2010 Medical Drug form: Center TAB, BID, Start date: 03/14/11 9:00:00, Duration: 30 day, Stop date: 04/12/11 17:00:00 Crestor 20 mg, 2 tab, PO No Longer [place] Route: PO, Active 2010 Medical Drug form: Center TAB, Daily, Start date: 03/14/11 9:00:00, Duration: 30 day, Stop date: 04/12/11 9:00:00 Keppra 500 mg oral 500 mg, 1 tab, PO No Longer Ash Dougie tablet Route: PO, Active 2010 Medical Drug form: Center TAB, Q12H, Start date: 03/14/11 9:00:00, Duration: 30 day, Stop date: 04/12/11 21:00:00 Novolin N 10 unit, 0.1 SUB-Q No Longer [place] as mL, Route: Active 2010 Medical [...] 500 mg, 1 tab, PO No Longer [place] 10 4/ [facility] Route: PO, Active 2010 Medical Drug form: [place] CHEWTAB, TID, Start date: 03/14/11 9:00:00, Duration: 30 day, Stop date: 04/12/11 17:00:00 heparin 5,000 unit, 1 SUB-Q No Longer [place] mL, Route: Active 2010 Medical SUB-Q, Drug Center form: INJ, Q8H, Start date: 03/14/11 8:00:00, Duration: 30 day, Stop date: 04/13/11 0:00:00 ciprofloxacin 750 mg, 3 tab, PO No Longer Ash [facility] Route: PO, Active 2010 Medical Drug form: [place] TAB, [id number], Start date: 03/14/11 7:00:00, Duration: 30 day, Stop date: 04/12/11 19:00:00 cefepime 2 gm, Route: IV No Longer [place] [facility] [place] [facility] IV, Drug form: Active 2010 Medical INJ, [id number], Center Start date: 03/14/11 7:00:00, Duration: 30 day, Stop date: 04/12/11 23:00:00 [place] Thyroid 120 mg, 2 tab, PO No Longer [place] [facility] Route: PO, Active 2010 Medical Drug form: [place] TAB, [id number], Start date: 03/14/11 6:45:00, Duration: 30 day, Stop date: 04/13/11 6:30:00 glucagon 1 mg, Route: [place]er [place] IM, Drug form: Active 2010 Medical PDR/INJ, PRN, Center PRN Blood Glucose Results, Priority: STAT, Start date: 03/14/11 6:06:00, Duration: 30 day, Stop date: 04/13/11 5:05:00 Dextrose 50% 25 gm, 50 mL, IVP No Longer Ash [facility] Syringe Route: IVP, Active 2010 Medical Drug Form: Center INJ, PRN, PRN Blood Glucose Results, Start date: 03/14/11 6:06:00, Duration: 30 day, Stop date: 04/13/11 5:05:00 insulin aspart 4 unit, 0.04 SUB-Q No Longer [place] [facility] [place] mL, Route: Active 2010 Medical SUB-Q, Drug Center form: SOLN, TID-Before Meals, PRN Blood Glucose Results, Start date: 03/14/11 6:06:00, Duration: 30 day, Stop date: 04/13/11 6:05:00 Bunola 5/325 oral 1 tab, Route: PO No Longer Ash [facility] tablet PO, Drug Form: Active 2010 Medical TAB, Q4H, PRN Center as needed for pain, Start date: 03/14/11 6:02:00, Duration: 30 day, Stop date: 04/13/11 6:01:00 magnesium sulfate 2 gm, 50 mL, IVPB No Longer [place] Route: IVPB, Active 2010 Medical Drug form: Center INJ, ONCE, Total dose = 2 gm, Start date: 03/14/11 6:01:00, Duration: 1 doses or times, Stop date: 03/14/11 6:01:00 Sodium Chloride 1,000 mL, IV No Longer [place] 0.9% (Bolus) IV Rate: 1,000 Active 2010 [facility] 1,000 mL ml/hr, Infuse Center over: 1 hr, Route: IV, Total Volume: 1,000, Bolus Dose, Priority: STAT, Start date: 03/14/11 4:12:00, Duration: 1 doses or times, Stop date: 03/14/11 5:11:00 Maxipime 2 gm, Route: IVPB No Longer Burden [facility] IVPB, Drug Active 2010 Medical form: [...] 0.9% (Bolus) IV Rate: 1,000 Active 2010 [facility] roger 1,000 mL ml/hr, Infuse [place] over: 1 hr, Route: IV, Total Volume: 1,000, Bolus Dose, Priority: STAT, Start date: 03/13/11 23:20:00, Duration: 1 doses or times, Stop date: 03/14/11 0:19:00 morphine Sulfate 4 mg, 1 mL, IVP No Longer [facility] Route: IVP, Active 2010 Medical Drug form: [place] INJ, ONCE, Priority: STAT, Start date: 03/13/11 22:47:00, Stop date: 03/13/11 22:47:00 Lasix Substitution No Longer [place] Allowed Active 2010 [facility] metFORmin Substitution [place] Allowed Active 2010 [facility] metoprolol 12.5 mg, 1 ea, PO No Longer [place] Route: PO, Active 2010 Medical Drug form: [place] TAB, BID, Start date: 03/06/11 20:00:00, Duration: 30 day, Stop date: 04/05/11 8:00:00 metoprolol 25 mg 12.5 mg, 0.5 PO Active Rizvi Dougie oral tablet ea, PO, BID, 2010 Medical 60 tab, Center Substitution Allowed, TAB trazodone 50 mg 50 mg, 1 tab, PO Active Rizvi [place] oral tablet PO, Bedtime, 2010 Medical 40 tab, Center Substitution Allowed, TAB [place] 5/325 oral 1 tab, PO, PO Active Rizvi [place] tablet Q4H, PRN, 40 2010 Medical tab, Pain, Center Substitution Allowed, Maintenance, TAB Novolin N 100 10 unit, SUB-Q Active Rizvi Dougie units/mL SUB-Q, BID, 10 2010 Medical subcutaneous ml, [place] injection Substitution Allowed, SUSP [place] Thyroid 60 120 mg, 2 tab, PO Active Rizvi [place] mg oral tablet PO, Before 2010 Medica l Breakfast, 60 [place] tab, Substitution Allowed, TAB Keppra 500 mg [...] sodium 100 mg, 1 cap, PO Active [place] [facility] [place] 100 mg oral PO, BID, 30 2010 Medical capsule cap, Center Substitution Allowed, CAP ciprofloxacin 250 750 mg, 3 tab, PO Active [place] mg oral tablet PO, Q12H, 40 2010 Medi roger doses or Center times, Substitution Allowed, TAB Maxipime 2 g 2 gm, IV, Q8H, IV Active [place] injection 60 doses or 2010 Medical times, Center Substitution Allowed calcium carbonate 500 mg, 1 tab, PO Active [place] 500 mg oral PO, TID, PRN, 2010 Medica l tablet, chewable 30 tab, as Cent er needed for indigestion, Substitution Allowed, CHEWTAB Lasix 10 mg, 0.5 PO No Longer Aaron [facility] tab, Route: Active 2010 Medical PO, Drug form: [place] TAB, Daily, Start date: 03/06/11 8:00:00, Duration: 30 day, Stop date: 04/04/11 8:00:00 Norvasc 5 mg, Route: PO No Longer Crowe [facility] PO, Daily, Active 2010 Medical Start date: [place] 03/02/11 8:00:00, Duration: 30 day, Stop date: 03/31/11 8:00:00 trazodone 50 mg 50 mg, 1 tab, PO No Longer Zeider [facility] oral tablet Route: PO, Active 2010 Medical Drug form: [place] TAB, Bedtime, Start date: 02/27/11 21:00:00, Duration: 30 day, Stop date: 03/28/11 21:00:00 calcium carbonate 500 mg, 1 tab, PO No Longer Zeider 02/27 [facility] Route: PO, Active 2010 Medical Drug form: [place] TAB, TID, Start date: 02/27/11 8:00:00, Duration: 7 day, Stop date: 03/05/11 17:00:00 senna 8.6 mg, 1 tab, PO No Longer [place] Route: PO, Active 2010 Medical Drug Form: Center TAB, Daily, Start date: 02/27/11 8:00:00, Duration: 30 day, Stop date: 03/28/11 8:00:00 Lasix 40 mg oral 20 mg, 0.5 PO No Longer Rizvi [facility] tablet tab, Route: Active 2010 Medical PO, Drug form: Center TAB, Daily, Start date: 02/27/11 8:00:00, Stop date: 03/28/11 8:00:00 [place] Thyroid 120 mg, 2 tab, PO No Longer Zeider [facility] Route: PO, Active 2010 Medical Drug form: Center TAB, Before Breakfast, Start date: 02/27/11 6:30:00, Duration: 30 day, Stop date: 03/28/11 6:30:00 Insulin regular 5 unit, 0.05 SUB-Q No Longer Crowe [facility] [place] [facility] mL, Route: Active 2010 Medical SUB-Q, Drug Center form: SOLN, TID-Before Meals, Start date: 02/27/11 6:30:00, Stop date: 03/28/11 16:30:00 heparin 5000 5,000 unit, 1 SUB-Q No Longer Zeider [facility] units/mL mL, Route: Active 2010 Medical injectable SUB-Q, Drug Center solution form: INJ, Q8H, Start date: 02/27/11 0:00:00, Duration: 30 day, Stop date: 03/28/11 16:00:00 hydrALAZINE 25 mg 25 mg, 1 tab, PO No Longer Crowe [facility] oral tablet Route: PO, Active 2010 Medical Drug form: Center TAB, Q8H, Start date: 02/27/11 0:00:00, Duration: 30 day, Stop date: 03/28/11 16:00:00 ciprofloxacin 750 mg, 3 tab, PO No Longer Zeider [facility] [place] [facility] Route: PO, Active 2010 Medical Drug form: Center TAB, Q12H, Priority: Routine, Start date: 02/26/11 23:00:00, Duration: 30 day, Stop date: 03/28/11 11:00:00 Crestor 20 mg, 2 tab, PO No Longer Zeider [facility] Route: PO, Active 2010 Medical Drug form: Center TAB, Daily, Start date: 02/26/11 21:00:00, Duration: 30 day, Stop date: 03/27/11 21:00:00 levetiracetam 500 mg, 1 tab, PO No Longer Zeider [facility] Route: PO, Active 2010 Medical Drug form: [place] TAB, Q12H, Start date: 02/26/11 21:00:00, Duration: 30 day, Stop date: 03/28/11 9:00:00 magnesium oxide 400 mg, 1 tab, PO No Longer Zeider [facility] Route: PO, Active 2010 Medical Drug form: Center TAB, BID, Start date: 02/26/11 20:00:00, Duration: 5 day, Stop date: 03/03/11 8:00:00 insulin 10 unit, 0.1 SUB-Q No Longer Zeider [facility] isophane-NPH mL, Route: Active 2010 Medical SUB-Q, Drug Center form: INJ, BID, Start date: 02/26/11 20:00:00, Duration: 30 day, Stop date: 03/28/11 8:00:00 docusate sodium 100 mg, 1 cap, PO No Longer Zeider [facility] 100 mg oral Route: PO, Active 2010 Medical capsule Drug form: [place] CAP, BID, Start date: 02/26/11 20:00:00, Duration: 30 day, Stop date: 03/28/11 8:00:00 Prinivil 20 mg, 1 tab, PO No Longer Crowe She[place] s Route: PO, Active 2010 Medical Drug form: Center TAB, BID, Start date: 02/26/11 20:00:00, Stop date: 03/28/11 8:00:00 cefepime 2 gm, Route: IVPB No Longer Zeider [facility] IVPB, Drug Active 2010 Medical form: INJ, Center [id number], Start date: 02/26/11 18:00:00, Duration: 30 day, Stop date: 03/28/11 10:00:00 ondansetron 4 mg, 2 mL, IVP No Longer Zeider [place] Route: IVP, Active 2010 Medical Drug form: [place] INJ, ONCE, PRN Nausea & Vomiting, Start date: 02/26/11 17:39:00 Saline Flush 0.9% 5 ml, Route: IVP No Longer Zeider [place] IVP, Drug Active 2010 Medical Form: INJ, Center PRN, PRN Line Flush, Start date: 02/26/11 17:39:00, Duration: 30 day, Stop date: 03/28/11 17:38:00 calcium carbonate 500 mg, 1 tab, CHEW No Longer Zeider 02/26 [place] Route: CHEW, Active 2010 Medical Drug form: [place] CHEWTAB, TID, PRN Indigestion, Start date: 02/26/11 17:39:00, Duration: 30 day, Stop date: 03/28/11 17:38:00 B[place] 5/325 oral 1 tab, Route: PO No Longer Zeider [facility] tablet PO, Drug Form: Active 2010 Medical TAB, Q4H, PRN Center Pain, Start date: 02/26/11 17:39:00, Duration: 30 day, Stop date: 03/28/11 17:38:00 acetaminophen 650 mg, 20.3 PO No Longer Zeider [place] mL, Route: PO, Active 2010 Medical Drug form: [place] LIQ, Q4H, PRN Fever, Start date: 02/26/11 17:39:00, Duration: 30 day, Stop date: 03/28/11 17:38:00 Bun[place] 7.5/325 oral 1 tab, Route: PO No Longer Zeider 02/26 [facility] tablet PO, Drug Form: Active 2010 Medical TAB, Q4H, PRN Center Pain, Start date: 02/26/11 17:39:00, Duration: 30 day, Stop date: 03/28/11 17:38:00 Insulin regular 2 unit, 0.02 SUB-Q No Longer Zeider H [place] mL, Route: Active 2010 Medical SUB-Q, Drug Center form: SOLN, TID-Before Meals, PRN Blood Glucose Results, Start date: 02/26/11 17:39:00, Duration: 30 day, Stop date: 03/28/11 17:38:00 [place] Thyroid 60 120 mg, 2 tab, PO [...] mg 25 mg, 1 tab, PO Active What Cheer [place] oral tablet PO, Q8H, 30 2010 Medical tab, Center Substitution Allowed, TAB heparin 5000 5000 units, SUB-Q Active [place] units/mL SUB-Q, Q8H, 30 2010 Medical injectable doses or Center solution times, Substitution Allowed, SOLN Lasix 40 mg oral 40 mg, 1 tab, PO Active Christianson 02/26/ M [facility] [place] tablet PO, Daily, 2010 Medical tab, Center Substitution Allowed, TAB docusate sodium 100 mg, 1 cap, PO Active What Cheer 02/26/ M H [place] 100 mg oral PO, BID, 30 2010 Medical capsule cap, Center Substitution Allowed, CAP ciprofloxacin 250 750 mg, 3 tab, PO Active What Cheer 02/26/ [place] mg oral tablet PO, Q12H, 30 2010 Medi roger doses or Center times, Substitution Allowed, TAB Maxipime 2 g 2 gm, IV, Q8H, IV Active [place] injection 1 doses or 2010 Medical times, Center Substitution Allowed calcium carbonate 500 mg, 1 tab, PO Active Christianson [place] 500 mg oral PO, TID, 2010 Medical tablet, chewable tab, Center Substitution Allowed, CHEWTAB Fleet Enema 133 ml, Route: [place] No Longer Joel [facility] [place], Drug Form: Active 2010 Medical JEANNIE, ONCE, Center Start date: 02/24/11 14:38:00, Stop date: 02/24/11 14:38:00 bisacodyl 10 mg, 1 supp, [place] Longer [place] Route: [place], Active 2010 Medical Drug form: Center SUPP, ONCE, Start date: 02/24/11 14:38:00, Stop date: 02/24/11 14:38:00 magnesium citrate 300 ml, Route: PO No Longer Aicha 02/24 [facility] PO, Drug Form: Active 2010 Medical LIQ, ONCE, Center Start date: 02/24/11 13:03:00, Stop date: 02/24/11 13:03:00 calcium carbonate 500 mg, 1 tab, PO No Longer Aaron 02/24 [facility] Route: PO, Active 2010 Medical Drug [...] 0.03 SUB-Q No Longer Aaron M [facility] [place] mL, Route: Active 2010 Medical SUB-Q, Drug Center form: SOLN, TID-Before Meals, Start date: 02/23/11 16:30:00, Duration: 30 day, Stop date: 03/25/11 11:30:00 ciprofloxacin 750 mg, 3 tab, PO No Longer Aaron M [facility] [place] Route: PO, Active 2010 Medical Drug form: Center TAB, Q12H, Priority: Routine, Start date: 02/23/11 13:00:00, Duration: 30 day, Stop date: 03/25/11 11:00:00 insulin 10 unit, 0.1 SUB-Q No Longer Aaron [facility] isophane-NPH mL, Route: Active 2010 Medical SUB-Q, Drug Center form: INJ, BID, Start date: 02/21/11 17:00:00, Stop date: 03/23/11 9:00:00 magnesium oxide 400 mg, 1 tab, PO No Longer Aaron [facility] Route: PO, Active 2010 Medical Drug form: Center TAB, BID, Start date: 02/21/11 17:00:00, Duration: 5 day, Stop date: 02/26/11 9:00:00 calcium carbonate 500 mg, 1 tab, CHEW No Longer Aaron 02/21 [facility] Route: CHEW, Active 2010 Medical Drug form: Center CHEWTAB, TID, PRN Indigestion, Start date: 02/21/11 14:26:00, Duration: 30 day, Stop date: 03/23/11 14:25:00 cefepime 2 gm, Route: IVPB No Longer Christianson [facility] IVPB, Drug Active 2010 Medical form: INJ, Center [id number], Start date: 02/20/11 18:00:00, Stop date: 03/22/11 10:00:00 Lasix 40 mg oral 40 mg, 1 tab, PO No Longer Aaron [facility] tablet Route: PO, Active 2010 Medical Drug form: Center TAB, Daily, Start date: 02/20/11 17:00:00, Stop date: 03/22/11 9:00:00 heparin 5000 5,000 unit, 1 SUB-Q No Longer Salazar [facility] units/mL mL, Route: Active 2010 Medical injectable SUB-Q, Drug Center solution form: INJ, Q8H, Start date: 02/20/11 16:00:00, Duration: 30 day, Stop date: 03/22/11 8:00:00 Bun[place] 7.5/325 oral 1 tab, Route: PO No Longer Salazar 02/20 [facility] tablet PO, Drug Form: Active 2010 Medical TAB, Q4H, PRN Center Pain, Start date: 02/20/11 11:07:00, Duration: 30 day, Stop date: 03/22/11 11:06:00 Crestor 20 mg, 2 tab, PO No Longer White [facility] Route: PO, Active 2010 Medical Drug form: Center TAB, Daily, Start date: 02/20/11 9:00:00, Duration: 30 day, Stop date: 03/21/11 9:00:00 senna 8.6 mg, 1 tab, PO No Longer White [place] s Route: PO, Active 2010 Medical Drug Form: [place] TAB, Daily, Start date: 02/20/11 9:00:00, Duration: 30 day, Stop date: 03/21/11 9:00:00 [place] Thyroid 120 mg, 2 tab, PO No Longer Chritsopher [facility] Route: PO, Active 2010 Medical Drug form: [place] TAB, Before Breakfast, Start date: 02/20/11 7:30:00, Duration: 30 day, Stop date: 03/21/11 7:30:00 vancomycin 1 gm, Route: IVPB No Longer Christianson Osman as IVPB, Drug Active 2010 Medical form: INJ, [place] [id number], Priority: NOW, Start date: 02/20/11 6:44:00, Duration: 30 day, Stop date: 03/21/11 22:44:00 magnesium sulfate 2 gm, 50 mL, IVPB No Longer Day [facility] Route: IVPB, Active 2010 Medical Drug form: [place] INJ, Q2H, Start date: 02/20/11 5:00:00, Duration: 2 doses or times, Stop date: 02/20/11 7:00:00 potassium chloride 20 mEq, 100 IVPB No Longer Day [facility] mL, Route: Active 2010 Medical IVPB, Q2H, Center Start date: 02/20/11 4:00:00, Duration: 2 doses or times, Stop date: 02/20/11 6:00:00 magnesium sulfate 4 gm, 100 mL, IVPB No Longer Day [facility] Route: IVPB, Active 2010 Medical Drug form: [place] INJ, ONCE, Start date: 02/20/11 4:00:00, Stop date: 02/20/11 4:00:00 labetalol 5 mg, 1 mL, IV No Longer [facility] Route: IV, Active 2010 Medical Drug form: [place] INJ, Q10Min, PRN Hypertension, Start date: 02/20/11 1:56:00, Duration: 30 day, Stop date: 03/22/11 1:55:00 NS 500 mL 500 mL, Rate: IV No Longer [facility] Osman as 1,000 ml/hr, Active 2010 Medical Infuse over: [place] 0.5 hr, Route: IV, Total Volume: 500, Start date: 02/19/11 22:07:00, Duration: 1 doses or times, Stop date: 02/19/11 22:36:00, Bolus DoseBolus Dose calcium chloride 1,000 mg, 10 IV No Longer [facility] mL, Route: IV, Active 2010 Medical Drug form: [place] INJ, ONCE, Start date: 02/19/11 21:18:00, Stop date: 02/19/11 21:18:00 Tylenol 650 mg, 2 tab, PO No Longer Salazar Sheldon s Route: PO, Active 2010 Medical Drug form: [place] TAB, Q4H, PRN Fever, Start date: 02/19/11 21:13:00, Duration: 30 day, Stop date: 03/21/11 21:12:00 levetiracetam 500 mg, 1 tab, PO No Longer [place] [facility] Route: PO, Active 2010 Medical Drug form: [place] TAB, Q12H, Start date: 02/19/11 21:00:00, Duration: 30 day, Stop date: 03/21/11 9:00:00 acetaminophen 650 mg, 20.3 PO No Longer [facility] Dougie mL, Route: PO, Active 2010 Medical Drug form: [place] LIQ, Q4H, PRN Fever, Start date: 02/19/11 [...] PO, Active 2010 Medical capsule Drug form: [place] CAP, BID, Start date: 02/19/11 17:00:00, Duration: 30 day, Stop date: 03/21/11 9:00:00 Bunola 5/325 oral 1 tab, Route: PO No Longer White [place] tablet PO, Drug Form: Active 2010 Medical TAB, Q4H, PRN [place] Pain, Start date: 02/19/11 16:14:00, Duration: 30 day, Stop date: 03/21/11 16:13:00 ciprofloxacin 400 mg, 200 IVPB No Longer [place] mL, Route: Active 2010 Medical IVPB, Drug Center form: INJ, [id number], Priority: NOW, Start date: 02/19/11 16:10:00, Duration: [...] regular 7 unit, 0.07 SUB-Q No Longer [place] [facility] human recombinant mL, Route: Active 2010 Med ical 100 units/mL SUB-Q, Drug Center injectable form: SOLN, solution PRN, PRN Abnormal Lab Result, Start date: 02/19/11 15:51:00, Duration: 30 day, Stop date: 03/21/11 15:50:00 Dextrose 50% 6.25 gm, 12.5 IVP No Longer [place] [facility] Syringe mL, Route: Active 2010 [facility] IVP, Drug Center Form: INJ, PRN, PRN Abnormal Lab Result, Start date: 02/19/11 15:51:00, Duration: 30 day, Stop date: 03/21/11 15:50:00 Saline Flush 0.9% 5 ml, Route: IVP No Longer [place] [facility] IVP, Drug Active 2010 Medical Form: INJ, Center PRN, PRN Line Flush, Start date: 02/19/11 15:51:00, Duration: 30 day, Stop date: 03/21/11 15:50:00 morphine Sulfate 2 mg, 1 mL, IVP No Longer [place] [facility] Route: IVP, Active 2010 Medical Drug form: Center INJ, Q1H, PRN Pain Score 7-10, Start date: 02/19/11 15:51:00, Duration: 30 day, Stop date: 03/21/11 15:50:00 flumazenil 0.2 mg, 2 mL, IVP [place] Longer [place] Route: IVP, Active 2010 Medical Drug form: Center INJ, PRN, PRN Other -See Comment, Initial dose, Start date: 02/19/11 14:18:00, Duration: 30 day, Stop date: 03/21/11 14:17:00 naloxone 0.04 mg, 0.1 IVP No Longer [place] mL, Route: Active 2010 Medical IVP, [...] mg, 1 mL, IVP No Longer Herman [facility] Route: IVP, Active 2010 Medical Drug form: Center INJ, Q5Min, PRN Elevated BP, Start date: 02/19/11 14:18:00, Duration: 5 doses or times, Stop date: 02/20/11 0:00:00 vancomycin 1 gm, Route: IVPB No Longer Rizvi Osman as IVPB, Drug Active 2010 Medical form: INJ, Center [id number], Start date: 02/19/11 14:00:00, Duration: 30 day, Stop date: 03/21/11 2:00:00 ondansetron 2 4 mg, 2 mL, IVP Active [facility] Osman as mg/mL injectable IVP, Q8H, PRN, 2010 Medical solution 30 mL, Nausea Center & Vomiting, Substitution Allowed, SOLN Milk of Magnesia 1.2 gm, 5 mL, PO Active Zeryder [facility] 24% oral PO, Daily, 2010 Medical concentrate PRN, 150 mL, Center Constipation, Substitution Allowed, Maintenance, CONC Prinivil 10 mg 10 mg, 1 tab, PO Active Zeider [facility] oral tablet PO, QPM, 30 2010 Medical tab, Center Substitution Allowed, TAB Keppra 500 mg oral 500 mg, 1 tab, PO Active Zeryder [facility] tablet PO, Q12H, 60 2010 Medical tab, Center Substitution Allowed, TAB Humulin N Pen 100 10 unit, SUB-Q Active [place] units/mL SUB-Q, BID, 3 2010 Medical subcutaneous ml, Center injection Substitution Allowed, SUSP Humulin N Pen 100 10 unit, SUB-Q Active [facility] [place] units/mL SUB-Q, BID, 3 2010 Medical subcutaneous ml, Center injection Substitution Allowed, SUSP hydrALAZINE 25 mg 25 mg, 1 tab, PO Active [facility] [place] oral tablet PO, BID, 60 2010 Medical tab, Center Substitution Allowed, TAB bisacodyl 10 mg 10 mg, 1 supp, [place] Active [facility] rectal suppository [place], Bedtime, 2010 Medical PRN, 30 supp, Center Constipation, Substitution Allowed, SUPP [place] 5/325 oral 1 tab, PO, PO Active [facility] [place] tablet Q4H, PRN, 30 2010 Medical tab, as needed Center for pain, Substitution Allowed, Maintenance, TAB [place] Thyroid 120 120 mg, 1 tab, PO Active [facility] [place] mg oral tablet PO, Daily, 30 2010 Med ical tab, Center Substitution Allowed, TAB Crestor 20 mg oral 20 mg, 1 tab, PO Active [facility] [place] tablet PO, Daily, 30 2010 Medical tab, Center Substitution Allowed, TAB metFORmin 500 mg 500 mg, 1 tab, PO Active [facility] oral tablet PO, Q8H, 90 2010 Medical tab, Center Substitution Allowed, TAB normal saline 0.9% 1,000 mL, IV No Longer Christianson [facility] IV 1,000 mL Rate: 100 Active 2010 Medical ml/hr, Infuse [place] over: 10 hr, Route: IV, Total Volume: 1,000, Start date: 02/18/11 11:29:00, Duration: 30 day, Stop date: 03/20/11 11:28:00 potassium 25 mEq, No Longer [place] bicarbonate 25 mEq Substitution Active 2010 Medical oral tablet, Allowed Center effervescent potassium chloride 40 mEq, 30 mL, PO No Longer Alikhan 01/30 [facility] Route: PO, Active 2010 Medical Drug form: [place] LIQ, Daily, Start date: 02/12/11 11:00:00, Duration: 30 day, Stop date: 03/14/11 8:00:00 Kayexalate 15 gm, 60 mL, PO [place] Longer [place] Route: PO, Active 2010 Medical Drug form: [place] SUSP, ONCE, Start date: 02/11/11 21:17:00, Stop date: 02/11/11 21:17:00 Kayexalate 30 gm, 120 mL, PO No Longer [place] Route: PO, Active 2010 Medical Drug form: [place] SUSP, ONCE, Start date: 02/11/11 17:22:00, Stop date: 02/11/11 17:22:00 NS (Bolus) IV 1,000 mL, IV No Longer Winifred Osman as 1,000 mL Rate: 1,000 Active 2010 Medical ml/hr, Infuse [place] over: 1 hr, Route: IV, Total Volume: 1,000, Priority: STAT, Start date: 02/11/11 8:37:00, Duration: 1 doses or times, Stop date: 02/11/11 9:36:00, Bolus DoseBolus Dose dexamethasone 1 mg, 1 tab, PO No Longer Zeider [facility] Route: PO, Active 2010 Medical Drug form: [place] TAB, Daily, Start date: 02/11/11 8:00:00, Duration: 2 day, Stop date: 02/12/11 8:00:00 Fleet Enema 133 ml, Route: [place] No Longer Winifred [facility] [place], Drug Form: Active 2010 Medical JEANNIE, ONCE, Center Start date: 02/10/11 14:15:00, Stop date: 02/10/11 14:15:00 bisacodyl 10 mg, 1 supp, [place] Longer [place] Route: [place], Active 2010 Medical Drug form: [place] SUPP, ONCE, Start date: 02/10/11 14:15:00, Stop date: 02/10/11 14:15:00 dexamethasone 1 mg, 1 tab, PO No Longer Zeider [facility] Route: PO, Active 2010 Medical Drug form: [place] TAB, BID, Start date: 02/09/11 8:00:00, Duration: 2 day, Stop date: 02/10/11 20:00:00 Xylocaine Jelly 2% 1 appl, Route: TOP No Longer Allam 01/30 [facility] topical gel with TOP, Q6H, Drug Active 2010 Medical applicator form: GEL PRN [place] Pain, Start date: 02/08/11 16:04:00, Duration: 30 day, Stop date: 03/10/11 16:03:00 dexamethasone 1 mg, 1 tab, PO No Longer [place] [facility] Route: PO, Active 2010 Medical Drug form: Center TAB, TID, Start date: 02/07/11 8:00:00, Duration: 2 day, Stop date: 02/08/11 17:00:00 Prinivil 10 mg, 1 tab, PO No Longer [place] Route: PO, Active 2010 Medical Drug form: Center TAB, QPM, Start date: 02/06/11 17:00:00, Duration: 30 day, Stop date: 03/07/11 17:00:00 dexamethasone 2 mg, 1 tab, [facility] Route: PO, Active 2010 Medical Drug form: Center TAB, TID, Start date: 02/05/11 8:00:00, Duration: 2 day, Stop date: 02/06/11 17:00:00 lisinopril 10 mg, 1 tab, PO [place] Long[place] Route: PO, Active 2010 Medical Drug form: Center TAB, QPM, Start date: 02/04/11 8:00:00, Duration: 30 day, Stop date: 03/05/11 17:00:00 insulin 8 unit, 0.08 SUB-Q No Longer Alikhan [facility] isophane-NPH mL, Route: Active 2010 Medical SUB-Q, Drug Center form: INJ, Before Breakfast, Start date: 02/04/11 6:30:00, Stop date: 03/05/11 6:30:00 insulin 8 unit, 0.08 SUB-Q No Longer Alikhan [facility] isophane-NPH mL, Route: Active 2010 Medical [...] mg, 1.5 tab, PO No Longer [place] [facility] Route: PO, Active 2010 Medical Drug form: Center TAB, TID, Start date: 02/03/11 8:00:00, Duration: 2 day, Stop date: 02/04/11 17:00:00 insulin 15 unit, 0.15 SUB-Q No Longer Ash [facility] s isophane-NPH mL, Route: Active 2010 Medical SUB-Q, Drug Center form: INJ, Q24H, Start date: 02/03/11 0:00:00, Duration: 30 day, Stop date: 03/04/11 0:00:00 Keppra 500 mg, 1 tab, PO No Longer [place] [facility] Route: PO, Active 2010 Medical Drug form: Center TAB, Q12H, Start date: 02/02/11 21:00:00, Duration: 30 day, Stop date: 03/04/11 9:00:00 hydrALAZINE 25 mg 25 mg, 1 tab, PO No Longer Ash 02/01 [facility] oral tablet Route: PO, Active 2010 Medical Drug form: Center TAB, BID, Start date: 02/01/11 17:00:00, Stop date: 03/03/11 8:00:00 heparin 5,000 unit, 1 SUB-Q No Longer Rizvi [facility] mL, Route: Active 2010 Medical SUB-Q, Drug Center form: INJ, Q8H, Start date: 02/01/11 16:00:00, Duration: 30 day, Stop date: 03/03/11 8:00:00 Kayexalate 15 gm, 60 mL, PO No Longer [place] Route: PO, Active 2010 Medical [...] mg, 2 tab, PO No Longer Zeider [facility] Route: PO, Active 2010 Medical Drug form: [place] TAB, Daily, Start date: 02/01/11 9:00:00, Duration: 30 day, Stop date: 03/02/11 9:00:00 Lasix 40 mg oral 80 mg, 2 tab, PO No Longer Dean [facility] tablet Route: PO, Active 2010 Medical Drug form: [place] TAB, Daily, Start date: 02/01/11 9:00:00, Duration: 30 day, Stop date: 03/02/11 9:00:00 atenolol 50 mg 50 mg, 1 tab, PO No Longer Ash [facility] oral tablet Route: PO, Active 2010 Medical Drug form: [place] TAB, Daily, Start date: 02/01/11 9:00:00, Duration: 30 day, Stop date: 03/02/11 9:00:00 [place] Thyroid 120 mg, 2 tab, PO No Longer Zeider [facility] Route: PO, Active 2010 Medical Drug form: Center TAB, Daily, Start date: 02/01/11 9:00:00, Duration: 30 day, Stop date: 03/02/11 9:00:00 dexamethasone 4 mg, 1 tab, PO No Longer Zeider [facility] Route: PO, Active 2010 Medical Drug form: [place] TAB, Q8H, Start date: 02/01/11 0:00:00, Duration: 2 day, Stop date: 02/02/11 16:00:00 Humulin N 20 unit, 0.2 SUB-Q No Longer Ash [place]man as mL, Route: Active 2010 Medical SUB-Q, Drug Center form: INJ, BID, Start date: 02/01/11 0:00:00, Stop date: 03/02/11 16:00:00 Keppra 100 mg/mL 500 mg, 5 mL, [place] No Longer Zeider [place] oral solution Route: [place], Active 2010 Medical Drug form: Center SOLN, Q12H, Start date: 01/31/11 21:00:00, Duration: 30 day, Stop date: 03/02/11 9:00:00 Insulin regular 1 unit, 0.01 SUB-Q No Longer Nur [facility] mL, Route: Active 2010 Medical SUB-Q, Drug Center form: SOLN, TID-Before Meals, PRN Blood Glucose Results, Start date: 01/31/11 17:22:00, Duration: 30 day, Stop date: 03/02/11 17:21:00 Milk of Magnesia 30 mL, Route: PO No Longer Nur [facility] PO, Drug Form: Active 2010 Medical SUSP, Daily, Center PRN Constipation, Start date: 01/31/11 17:22:00, Duration: 30 day, Stop date: 03/02/11 17:21:00 bisacodyl 10 mg, 1 supp, [place] Route: [place], Active 2010 Medical Drug form: Center SUPP, [...] 3 mL, Route: IVP No Longer Nur [facility] IVP, Drug Active 2010 Medical Form: INJ, Center Q8H, PRN Line Flush, Start date: 01/31/11 17:22:00, Duration: 30 day, Stop date: 03/02/11 17:21:00, Administer at least once every 8 hoursAdministe r at least once every 8 hours [place] Route: SUB-Q, SUB-Q No Longer [facility] Drug form: Active 2010 Medical INJ, BID, Center Start date: 01/31/11 17:00:00, Duration: 30 day, Stop date: 03/02/11 9:00:00 metFORmin 500 mg 500 mg, 1 tab, PO No Longer ider [facility] oral tablet Route: PO, Active 2010 Medical Drug form: Center TAB, Q8H, Start date: 01/31/11 16:00:00, Duration: 30 day, Stop date: 03/02/11 8:00:00 Bunola 5/325 oral 1 tab, Route: PO No Longer [facility] tablet PO, Drug Form: Active 2010 Medical TAB, Q4H, PRN Center as needed for pain, Start date: 01/31/11 14:56:00, Duration: 30 day, Stop date: 03/02/11 14:55:00 bisacodyl 10 mg, Route: [place] No Longer ryder Osman as [place], Drug form: Active 2010 Medical SUPP, Daily, Center PRN as needed for constipation, Start date: 01/31/11 14:56:00, Duration: 30 day, Stop date: 03/02/11 14:55:00 Keppra 100 mg/mL 500 mg, 5 mL, [place] On Hold [facility] oral solution [place], Q12H, 60 2010 Medic al mL, Center Substitution Allowed, SOLN docusate sodium 100 mg, 1 cap, PO On Hold ryder H [place] 100 mg oral PO, BID, 60 2010 Medical capsule cap, Center Substitution Allowed, CAP dexamethasone 4 mg 4 mg, 1 tab, PO On Hold [facility] oral tablet PO, Q6H-02, 60 2010 Medic al tab, Center Substitution Allowed, TAB bisacodyl 10 mg 10 mg, 1 supp, [place] On Hold [facility] rectal suppository [place], Daily, 2010 Me dical PRN, 60 supp, Center Constipation, Substitution Allowed, SUPP [place] 5/325 oral 1 tab, PO, PO On Hold [place] tablet Q4H, PRN, 60 2010 Medical tab, Headache, Center Substitution Allowed, Maintenance, TAB [place] 5/325 oral 1 tab, Route: PO No Longer Bonner [place] tablet PO, Drug Form: Active 2010 Medical TAB, Q4H, PRN [place] Headache, Start date: 01/30/11 15:44:00, Duration: 30 day, Stop date: 03/01/11 15:43:00 dexamethasone 4 mg, 1 tab, PO No Longer Christianson [facility] Route: PO, Active 2010 Medical Drug form: [place] TAB, Q6H-02, Start date: 01/29/11 12:00:00, Stop date: 02/28/11 6:00:00 insulin 20 unit, 0.2 SUB-Q No Longer Omidvar [place] isophane-NPH mL, Route: Active 2010 Medical SUB-Q, Drug Center form: INJ, Q8H, Start date: 01/29/11 8:00:00, Stop date: 02/28/11 0:00:00 Keppra 100 mg/mL 500 mg, 5 mL, [place] No Longer Boss [facility] oral solution Route: JATIN, Active 2010 Medical Drug form: [place] SOLN, Q12H, Start date: 01/28/11 21:00:00, Duration: 30 day, Stop date: 02/27/11 9:00:00 ranitidine 15 150 mg, 10 mL, [place] No Longer Boss [facility] mg/mL oral syrup Route: JATIN, Active 2010 [facility] Drug form: [place] SYRP, Q12H, Start date: 01/28/11 21:00:00, Duration: 30 day, Stop date: 02/27/11 9:00:00 Dextrose 50% 6.25 gm, 12.5 IVP No Longer Shagagi [facility] Syringe mL, Route: Active 2010 Medical IVP, Drug Center Form: INJ, PRN, PRN Abnormal Lab Result, Start date: 01/28/11 17:39:00, Duration: 30 day, Stop date: 02/27/11 17:38:00 insulin regular 3 unit, 0.03 SUB-Q No Longer George 08/30/ [facility] human recombinant mL, Route: Active 2010 Med ical 100 units/mL SUB-Q, Drug Center injectable form: SOLN, solution PRN, PRN Abnormal Lab Result, Start date: 01/28/11 17:39:00, Duration: 30 day, Stop date: 02/27/11 17:38:00 metFORmin 1000 mg 1,000 mg, 1 PO No Longer [place] [facility] oral tablet tab, Route: Active 2010 Medical PO, Drug form: Center TAB, BID, Start date: 01/28/11 17:00:00, Duration: 30 day, Stop date: 02/27/11 9:00:00 heparin 5,000 unit, 1 SUB-Q No Longer Burs[place] [facility] mL, Route: Active 2010 Medical SUB-Q, Drug Center form: INJ, Q8H, Start date: 01/28/11 0:00:00, Duration: 30 day, Stop date: 02/26/11 16:00:00 sodium phosphate 18 mmol, 6 mL, IV Active Day [place] Route: IV, 2010 Medical ONCE, Start Center date: 01/27/11 3:30:00, Stop date: 01/27/11 3:30:00 normal saline 0.9% 1,000 mL, IV No Longer George [facility] IV 1,000 mL Rate: 50 Active 2010 [...] IVP, Q6H, Active 2010 Medical Start date: [place] 01/26/11 12:00:00, Duration: 30 day, Stop date: 02/25/11 6:00:00 mannitol 75 gm, 375 mL, IVPB No Longer Christian Osman as Route: IVPB, Active 2010 Medical Drug form: [place] INJ, Q6H, Start date: 01/26/11 12:00:00, Duration: [...] IVPB, ONCE, Active 2010 Medical Start date: [place] 01/25/11 17:50:00, Stop date: 01/25/11 17:50:00 heparin [...] phosphate 15 mmol, IVPB No Longer Christian 01/[facility] [place] Route: IVPB, Active 2010 Medical PRN, PRN Center Abnormal Lab Result, Start date: 01/25/11 6:44:00, Duration: 30 day, Stop date: 02/24/11 6:43:00 magnesium sulfate 4 gm, 100 mL, IVPB No Longer Christian [facility] Route: IVPB, Active 2010 Medical Drug form: [place] INJ, ONCE, Start date: 01/25/11 6:44:00, Duration: 1 doses or times, Stop date: 01/25/11 6:44:00, For Mg = 1.5 - 1.7 mg/dLFor Mg = 1.5 - 1.7 mg/dL hydrALAZINE 10 mg, 0.5 mL, IV No Longer Christian [facility] Route: IV, Active 2010 Medical Drug form: [place] INJ, Q30Min, PRN Hypertension, Start date: 01/25/11 0:14:00, Duration: 30 day, Stop date: 02/24/11 0:13:00 dexamethasone 10 mg, 1 mL, IV No Longer Rizvi 01/25[facility] Route: IV, Active 2010 Medical Drug form: [place] INJ, Q6H, Start date: 01/25/11 0:00:00, Stop date: 02/23/11 18:00:00 Insulin regular 99 mL, Rate: IV No Longer Avinash 01/25/ [facility] 100 unit + Sodium TITRATE, Active 2010 Medic al Chloride 0.9% IV Route: IV, Cent er 99 mL Total Volume: 100, Start date: 01/24/11 23:59:00, Duration: 30 day, Stop date: 02/23/11 23:58:00 Dextrose 50% 12.5 gm, 25 IVP No Longer Christian 01/25[facility] [place] Syringe mL, Route: Active 2010 Medical IVP, Drug Center Form: INJ, PRN, PRN Abnormal Lab Result, Start date: 01/24/11 23:41:00, Duration: 30 day, Stop date: 02/23/11 23:40:00 Insulin regular 100 mL, Rate: IVPB No Longer Christian [facility] 100 unit + Sodium Start at 0.05 Active 2010 Medical Chloride 0.9% units/kg/hour- Mitch ter (titrate) 100 mL , Route: IVPB, Total Volume: 100, Duration: 30 day, Stop date: 02/23/11 23:41:00, Replace Every: 24 hr labetalol 10 mg, 2 mL, IV No Longer Christian 01/[facility] [place] Route: IV, Active 2010 Medical Drug form: [place] INJ, Q15Min, PRN Hypertension, Start date: 01/24/11 22:36:00, Duration: 30 day, Stop date: 02/23/11 22:35:00 levetiracetam 500 mg, Route: IV No Longer Boss [facility] IV, Q12H, Active 2010 Medical Start date: [place] 01/24/11 21:00:00, Duration: 30 day, Stop date: 02/23/11 9:00:00 famotidine 20 mg, 2 mL, IV No Longer [facility] Osman as Route: IV, 2010 Medical Drug form: [place] INJ, Q12H, Start date: 01/24/11 21:00:00, Stop date: 02/23/11 9:00:00 propofol 10 mg/ml 1,000 mg, 100 IV No Longer [place] 01/25[facility] (titrate) 1,000 mg mL, Rate: Active 2010 Med ical Titrate as Center directed, Route: IV, Total Volume: 100 ml, Start date: 01/24/11 20:56:00, Duration: 30 day, Stop date: 02/23/11 20:55:00, Replace Every: 12 hr chlorhexidine 15 ml, Route: S&SPIT No Longer Ryan [facility] topical 0.12% S&SPIT, Q4H, Active 2010 Medic al liquid Drug form: [place] LIQ, Start date: 01/24/11 20:00:00, Duration: 30 day, Stop date: 02/23/11 16:00:00 niCARdipine 40 mg 40 mg, 200 mL, IV No Longer George 01/25 [facility] [place] 200 ml IV 40 Rate: Titrate, Active 2010 Medical mg Route: IV, Center Total Volume: 200 mL, Duration: 30 day, Stop date: 02/23/11 19:06:00, Replace Every: 24 hr vancomycin 1 gm, Route: IVPB No Longer Boss Osman as IVPB, Drug Active 2010 Medical form: INJ, Center [id number], Start date: 01/24/11 9:00:00, Duration: 30 day, Stop date: 02/22/11 21:00:00 famotidine 20 mg 20 mg, 1 tab, PO No Longer Christian [facility] oral tablet Route: PO, Active 2010 [...] 5,000 unit, 1 SUB-Q No Longer Bursaw [facility] units/mL mL, Route: Active 2010 [facility] injectable SUB-Q, Drug Center solution form: INJ, Q8H, Start date: 01/23/11 16:00:00, Duration: 30 day, Stop date: 02/22/11 8:00:00 [place] 250 mcg, SUB-Q On Hold [facility] SUB-Q, BID, 2010 Medical Substitution Center Allowed, INJ cephalexin 500 mg, PO, PO On Hold [place] monohydrate 500 mg TID, 2010 Medic al oral tablet Substitution Center Allowed, CAP Levaquin 500 mg 1 tab, PO, PO [place] oral tablet Q24H, 10 tab, 2010 Medica l Substitution Center Allowed, TAB metFORmin 500 mg 500 mg, PO, PO On Hold [facility] oral tablet TID, 2010 Medical Substitution Center Allowed, TAB Crestor 20 mg oral 1 tab, PO, PO On Hold [place] tablet Daily, 30 tab, 2010 Medical Substitution Center Allowed, TAB benzonatate 200 mg 1 cap, PO, PO On Hold [facility] oral capsule TID, 30 cap, 2010 Medica l Substitution Center Allowed, CAP atenolol 50 mg 1 tab, PO, PO On Hold [place] oral tablet Daily, 30 tab2010 Medic al Substitution Center Allowed [place] Thyroid 120 1 tab, PO, PO On Hold Zeider [place] mg oral tablet Daily, 30 tab, 2010 Me dical Substitution Center Allowed, TAB docusate 100 mg, 1 cap, PO No Longer [place] Route: PO, Active 2010 Medical Drug form: [place] CAP, BID, Start date: 01/23/11 9:00:00, Stop date: 02/21/11 17:00:00 Senna 8.6 mg oral 8.6 mg, 1 tab, PO No Longer Nur 01/23 [facility] tablet Route: PO, Active 2010 Medical Drug Form: [place] TAB, Q12H, Start date: 01/23/11 9:00:00, Duration: 30 day, Stop date: 02/21/11 21:00:00 levetiracetam 500 mg, 1 tab, PO No Longer Christian 01/23[facility] Route: PO, Active 2010 Medical Drug form: [place] TAB, Q12H, Start date: 01/23/11 9:00:00, Duration: 30 day, Stop date: 02/21/11 21:00:00 calcium chloride 1,000 mg, 10 IVPB No Longer Day [facility] mL, Route: Active 2010 Medical IVPB, ONCE, [place] Start date: 01/23/11 8:30:00, Stop date: 01/23/11 8:30:00 magnesium sulfate 2 gm, 50 mL, IVPB No Longer Day [facility] Route: IVPB, Active 2010 Medical Drug form: [place] INJ, Q2H, Start date: 01/23/11 8:20:00, Duration: 2 doses or times, Stop date: 01/23/11 10:00:00 dexamethasone 4 mg, 1 tab, PO No Longer Christian [facility] Route: PO, Active 2010 Medical Drug form: [place] TAB, Q6H, Start date: 01/23/11 6:00:00, Duration: 30 day, Stop date: 02/22/11 0:00:00 acetaminophen 650 mg, 2 tab, PO No Longer Nur [facility] Route: PO, Active 2010 Medical Drug form: [place] TAB, Q4H, PRN Pain/Fever, Start date: 01/23/11 5:22:00, Duration: 30 day, Stop date: 02/22/11 5:21:00 morphine Sulfate 2 mg, 1 mL, IVP No Longer Rizvi [facility] [place] [facility] Route: IVP, Active 2010 Medical Drug form: Center INJ, Q4H, PRN Pain Score 4-6, Start date: 01/23/11 5:22:00, Duration: 30 day, Stop date: 02/22/11 5:21:00, Hold for respiratory rate of 8 or less NS + KCL 20mEq/L 1,000 mL, IV No Longer Christian [facility] 1000ml (Premix) Rate: 60 Active 2010 Medical 1,000 mL 1,000 mL ml/hr, Infuse Center over: 16.7 hr, Route: IV, Total Volume: 1,000, Start date: 01/23/11 5:21:00, Duration: 30 day, Stop date: 02/22/11 5:20:00 insulin regular 5 unit, 0.05 SUB-Q No Longer [place] [facility] human recombinant mL, Route: Active 2010 Med ical 100 units/mL SUB-Q, Drug Center injectable form: SOLN, solution PRN, PRN Abnormal Lab Result, Start date: 01/23/11 5:14:00, Duration: 30 day, Stop date: 02/22/11 5:13:00 Dextrose 50% 6.25 gm, 12.5 IVP No Longer [place] 01/23[facility] Syringe mL, Route: Active 2010 [facility] IVP, Drug Center Form: INJ, PRN, PRN Abnormal Lab Result, Start date: 01/23/11 5:14:00, Duration: 30 day, Stop date: 02/22/11 5:13:00 Saline Flush 0.9% 5 ml, Route: IVP No Longer [place] 01/23[facility] IVP, Drug Active 2010 Medical Form: INJ, Center PRN, PRN Line Flush, Start date: 01/23/11 5:14:00, Duration: 30 day, Stop date: 02/22/11 5:13:00 bisacodyl 10 mg, 1 supp, [place] No Longer [place] 01/23[facility] [place] Route: [place], Active 2010 Medical Drug form: Center SUPP, Daily, PRN Constipation, Start date: 01/23/11 5:14:00, Duration: 30 day, Stop date: 02/22/11 5:13:00 acetaminophen 650 mg, 2 tab, PO No Longer Nur 01/23/ [facility] Route: PO, Active 2010 Medical Drug form: Center TAB, Q4H, PRN Pain/Fever, Start date: 01/23/11 5:14:00, Duration: 30 day, Stop date: 02/22/11 5:13:00 morphine Sulfate 2 mg, 1 mL, IVP No Longer Nur 01/23[facility] Route: IVP, Active 2010 Medical Drug form: Center INJ, Q1H, PRN Pain Score 7-10, Start date: 01/23/11 5:14:00, Duration: 30 day, Stop date: 02/22/11 5:13:00 ondansetron 4 mg, 2 mL, IVP No Longer Nur 01/23[facility] [place] Route: IVP, Active 2010 Medical Drug form: Center INJ, Q8H, PRN Nausea & Vomiting, Start date: 01/23/11 5:14:00, Duration: 30 day, Stop date: 02/22/11 5:13:00 Allergies, Adverse Reactions, Alerts Substance Category Reaction Severity Reaction Status Date Comments S ource type Reported penicillins< Assertion rash Drug Active Data [facility] sup>1</sup> allergy 1 migrated Med ical from [facility] on 01/22/15. Originally documented as PCN. erythromycin Assertion Drug Active Data [facility] <sup>2</sup> allergy 1 migrated Me dical from [facility] on 01/22/15. Originally documented as ERYTHROMYC IN. aspirin<sup> Assertion severe Drug Active Data [facility] 3</sup> chest allergy 1 migrated Medical pain from [facility] on 01/22/15. Originally documented as ASPIRIN. Adhesive Assertion Allergy to Active Data [facility] Tape<sup>4</ substance 1 migrated Medical sup> from [facility] on 08/01/15. Originally documented as ADHESIVE TAPE. PHENobarbita Assertion Drug Active Data [place]<sup>5</sup allergy 1 migrated Me dical > from [facility] on 01/22/15. Originally documented as PHENOBARBI OCSTA. aspirin<sup> Assertion severe Drug Active Data [place] 4</sup> chest allergy 1 migrated Medical pain from [facility] on 01/22/15. Originally documented as ASPIRIN. Adhesive Assertion Allergy to Active Data [facility] Tape<sup>6</ substance 1 migrated Medical sup> from [facility] on 08/01/15. Originally documented as ADHESIVE TAPE. PHENobarbita Assertion Drug Active Data [facility] l<sup>7</sup allergy 1 migrated Me dical > from [facility] on 01/22/15. Originally documented as PHENOBARBI COSTA. ciprofloxaci Assertion Drug Active [facility] heparin Assertion Severe Drug Active [place] [facility] phenobarbita Assertion rash Drug Active [facility] cefepime Assertion Drug Active [facility] Cortizone-[address] [facility] aspirin allergy to severe Allergy Active [facility] [place] substance chest Medica l pain Center erythromycin drug Allergy Active [facility] penicillins drug rash Allergy Active [facility] Silk Tape propensity takes Adverse Active [facility] to adverse skin off Reaction Med ical reactions Center to substance gabapentin<s Assertion Propensity Active fatigu e [facility] up>3</sup> to adverse Me dical reactions Center to drug immune Assertion Drug Active [place] globulin allergy called Medical intravenous< hospital Ce nter sup>5</sup> on 12/06/19 and stated that the pt was allergic to IVIG Immunizations Immunization Date Given Site Status Last Updated Comments Rosalinda rce influenza virus 02/23/2019 Not Given [facility] vaccine, [facility] DOMONIQUE Lorenz nn Results Order Name Results Value Reference Date Interpretation Comments Rosalinda rce Range CHEM PANEL Magnesium 2.2 1.8 - 2.4 02/26 [facility] /[address] [place] [address] CHEM PANEL Phosphorus 3.3 2.5 - 4.5 02/[address] CHEM PANEL Glucose Lvl 176 70 - 99 02/26 [facility] CHEM PANEL BUN 20 7 - 22 02/26 [facility] CHEM PANEL Creatinine 0.96 0.50 - 02/26 [facility] Lvl 1.40 [facility] CHEM PANEL Sodium Lvl 141 135 - 145 02/26 2019 [facility] CHEM PANEL Potassium 4.3 3.5 - 5.1 02/[address] [facility] CHEM PANEL Chloride Lvl 111 95 - 109 02/26 s [facility] CHEM PANEL CO2 27 24 - 32 02/26 2019 [facility] CHEM PANEL AGAP 7.3 10.0 - 02/26 [place] 20.0 [facility] CHEM PANEL Calcium Lvl 8.7 8.5 - 10.5 02/26 [facility] as [facility] CHEM PANEL eGFR 59 02/26 Result Comment: [...] HEMATOLOGY WBC 19.0 3.7 - 10.4 02/26 [facility] HEMATOLOGY RBC 3.82 4.20 - 02/26 [facility] 5.40 [facility] HEMATOLOGY Hgb 9.2 12.0 - 02/26 [facility] 16.0 [facility] HEMATOLOGY Hct 29.8 36.0 - 02/26 [facility] 48.0 [facility] HEMATOLOGY MCV 78.2 80.0 - 02/26 [facility] 98.0 [facility] HEMATOLOGY MCH 24.1 27.0 - 02/26 [facility] 31.0 /2019 [facility] HEMATOLOGY MCHC 30.9 32.0 - 02/26 [facility] 36.0 /2019 [facility] HEMATOLOGY RDW 20.2 11.5 - 02/26 [facility] 14.5 /2019 [facility] HEMATOLOGY Platelet 110 133 - 450 02/[address] HEMATOLOGY MPV 9.5 7.4 - 10.4 02/[address] HEMATOLOGY Segs 78.2 45.0 - 02/26 [facility] 75.0 /2019 [facility] HEMATOLOGY Lymphocytes 15.4 20.0 - 02/26 [facility] 40.0 /2019 [facility] HEMATOLOGY Monocytes 5.7 2.0 - 12.0 02/[address] HEMATOLOGY Eosinophils 0.3 0.0 - 4.0 02/26 [facility] s /[address] [place] [address] HEMATOLOGY Basophils 0.4 0.0 - 1.0 02/[address] HEMATOLOGY Neutrophils 14.9 1.5 - 8.1 02/26 [place] /2019 [facility] HEMATOLOGY Lymphocytes 2.9 1.0 - 5.5 02/26 [place] # /[address] [place] [address] HEMATOLOGY Monocytes # 1.1 0.0 - 0.8 02/26 [facility] /[address] [place] [address] HEMATOLOGY Eosinophils 0.1 0.0 - 0.5 02/26 [facility] # /[address] [place] [address] HEMATOLOGY Basophils # 0.1 0.0 - 0.2 02/26 [facility] /[address] [place] [address] HEMATOLOGY Microcyte 1+ None Seen 02/26 [facility] *ABN* /2019 Medical (02/27/20 12:52 AM) Cente r PARATHYROID Ca Ion WB 1.22 1.05 - 02/26 [facility] PROFILE 1. [facility] PARATHYROID Ca Norm WB 1.20 1.05 - 02/26 [facility] PROFILE . [facility] CHEM PANEL Magnesium 2.1 1.8 - 2.4 02/25 [facility] /[address] [place] [address] CHEM PANEL Glucose Lvl 253 70 - 99 02/[address] CHEM PANEL BUN 14 7 - 22 02/[address] CHEM PANEL Creatinine 0.74 0.50 - 02/25 [facility] Lvl 1.40 [facility] CHEM PANEL Sodium Lvl 141 135 - 145 02/25 [facility] CHEM PANEL Potassium 4.3 3.5 - 5.1 02/25 [facility] Lvl [facility] CHEM PANEL Chloride Lvl 112 95 - 109 02/25 [facility] CHEM PANEL CO2 23 24 - 32 02/25 [facility]2019 [facility] CHEM PANEL Calcium Lvl 8.7 8.5 - 10.5 02/25 [facility] as [facility] CHEM PANEL AGAP 10.3 10.0 - 02/25 [facility] 20.0 [facility] CHEM PANEL eGFR 80 02/25 Result Comment: [...] Phosphorus 2.7 2.5 - 4.5 02/25 2019 [facility] HEMATOLOGY Segs 84.4 45.0 - 02/25 [facility] 75.0 [facility] HEMATOLOGY Lymphocytes 10.8 20.0 - 02/25 [place] 40.0 [facility] HEMATOLOGY Monocytes 4.4 2.0 - 12.0 02/25 [facility]2019 [facility] HEMATOLOGY Eosinophils 0.1 0.0 - 4.0 02/25 [facility] /2019 [facility] HEMATOLOGY Basophils 0.3 0.0 - 1.0 02/25 [facility]2019 [facility] HEMATOLOGY Neutrophils 14.3 1.5 - 8.1 02/25 [place] # /2019 [facility] HEMATOLOGY Lymphocytes 1.8 1.0 - 5.5 02/25 [facility] # /2019 [facility] HEMATOLOGY Monocytes # 0.7 0.0 - 0.8 02/25 [facility] [address] [place] [address] HEMATOLOGY Microcyte 1+ None Seen 02/25 [facility] *ABN* /2019 [facility] (02/26/20 1:07 AM) [place] HEMATOLOGY WBC 16.9 3.7 - 10.4 02/[address] HEMATOLOGY RBC 3.72 4.20 - 02/25 [facility] 5.40 [facility] HEMATOLOGY Hgb 9.0 12.0 - 02/25 [facility] 16.0 /2019 [facility] HEMATOLOGY Hct 29.3 36.0 - 02/25 [facility] 48.0 /2019 [facility] HEMATOLOGY MCV 78.8 80.0 - 02/25 [facility] 98.0 /2019 [facility] HEMATOLOGY MCH 24.1 27.0 - 02/25 [facility] 31.0 /2019 [facility] HEMATOLOGY MCHC 30.6 32.0 - 02/25 [facility] 36.0 /2019 [facility] HEMATOLOGY RDW 19.6 11.5 - 02/25 [facility] 14.5 /2019 [facility] HEMATOLOGY Platelet 98 133 - 450 02/[address] HEMATOLOGY MPV 10.1 7.4 - 10.4 02/[address] PARATHYROID Ca Ion WB 1.18 1.05 - 02/25 [facility] PROFILE 1.25 /2019 [facility] PARATHYROID Ca Norm WB 1.17 1.05 - 02/25 [facility] PROFILE 1.25 /2019 [facility] CHEM PANEL Glucose Lvl 257 70 - 99 02/[address] CHEM PANEL BUN 16 7 - 22 02/[address] CHEM PANEL Creatinine 0.75 0.50 - 02/24 [facility] Lvl 1.40 [facility] CHEM PANEL Sodium Lvl 143 135 - 145 02/[address] CHEM PANEL Potassium 4.1 3.5 - 5.1 02/24 [facility] /[address] [place] [address] CHEM PANEL Chloride Lvl 111 95 - 109 02/[address] CHEM PANEL CO2 24 24 - 32 02/[address] CHEM PANEL Calcium Lvl 9.0 8.5 - 10.5 02/[address] CHEM PANEL AGAP 12.1 10.0 - 02/24 [facility] 20.0 /2019 [facility] CHEM PANEL eGFR 80 02/24 Result [place] [address] Comment: The Medical eGFR is Center calculated [...] PANEL Magnesium 1.9 1.8 - 2.4 02/[address] CHEM PANEL Phosphorus 2.6 2.5 - 4.5 02/[address] HEMATOLOGY Fibrinogen 159 230 - 510 02/[address] HEMATOLOGY Segs 84.7 45.0 - 02/24 [facility] 75.0 2019 [facility] HEMATOLOGY Lymphocytes 10.5 20.0 - 02/24 [facility] 40.0 2019 [facility] HEMATOLOGY Monocytes 4.5 2.0 - 12.0 02/[address] HEMATOLOGY Eosinophils 0.1 0.0 - 4.0 02/[address] HEMATOLOGY Basophils 0.2 0.0 - 1.0 02/[address] HEMATOLOGY Neutrophils 15.2 1.5 - 8.1 02/24 [facility] # /2019 [facility] HEMATOLOGY Lymphocytes 1.9 1.0 - 5.5 02/24 [facility] # /[address] [place] [address] HEMATOLOGY Monocytes # 0.8 0.0 - 0.8 02/[address] HEMATOLOGY Microcyte 1+ None Seen 02/24 [facility] *ABN* /2019 [facility] (02/25/20 3:30 AM) [place] HEMATOLOGY WBC 17.9 3.7 - 10.4 02/[address] HEMATOLOGY RBC 3.96 4.20 - 02/24 [facility] 5.40 /2019 [facility] HEMATOLOGY Hgb 9.6 12.0 - 02/24 [place] 16.0 [facility] HEMATOLOGY Hct 31.0 36.0 - 02/24 [facility] 48.0 [facility] HEMATOLOGY MCV 78.3 80.0 - 02/24 [facility] 98.0 [facility] HEMATOLOGY MCH 24.3 27.0 - 02/24 [place] 31.0 [facility] HEMATOLOGY MCHC 31.0 32.0 - 02/24 [place] 36.0 [facility] HEMATOLOGY RDW 19.5 11.5 - 02/24 [facility] 14.5 [facility] HEMATOLOGY Platelet 94 133 - 450 02/[address] HEMATOLOGY MPV 9.6 7.4 - 10.4 02/[address] PARATHYROID Ca Ion WB 1.17 1.05 - 02/24 [facility] PROFILE 1. [facility] PARATHYROID Ca Norm WB 1.17 1.05 - 02/24 [facility] PROFILE 1.25 [facility] HEMATOLOGY Heparin Negative 5 Negative 02/23 Result [facility] Ab(SRIDEVI) (02/24/20 4:43 PM) Comment: [facility] Medical assay detects Center heparin antibodies of IgG isotype. Antibodies of other isotypes have been reported to cause heparin-induc ed thrombocytope davey. Therefore, if there is a strong clinical suspicion of HIT, additional study with a serotonin release assay is recommented. HEMATOLOGY Pat Od Value 0.064 02/23 [facility] /[address] [place] [address] HEMATOLOGY Pos CO Value 0.400 02/[address] HEMATOLOGY Basophils # 0.1 0.0 - 0.2 02/23 [facility] s /2019 [facility] HEMATOLOGY Fibrinogen 175 230 - 510 02/22 [facility] Lvl /2019 [facility] CARDIAC BNP 73 <=100 02/21 [facility] ENZYMES pg/mL [facility] HEMATOLOGY Anisocyte 1+ None Seen 02/21 [facility] *ABN* /2019 [facility] (02/22/20 10:43 AM) Cente r HEMATOLOGY Hypochrom 1+ None Seen 02/21 [facility] (02/22/20 10:43 AM) /2019 [facility] HEMATOLOGY Eosinophils 0.2 0.0 - 0.5 02/21 [place] # /2019 [facility] HEMATOLOGY Basophils # 0.2 0.0 - 0.2 02/21 [facility] /2019 [facility] CHEM PANEL Lactic Acid 1.7 0.5 - 2.2 02/21 [facility] /2019 [facility] HEMATOLOGY Eosinophils 0.1 0.0 - 0.5 02/21 [facility] # [facility] CHEM PANEL Lactic Acid 3.8 0.5 - 2.2 02/21 [facility] /2019 [facility] CEFTRIAXONE Culture: 10,000 - 50,000 CFU/mL Enterobacter cloacae 02/21 [place] :SUSC:PT:IS Urine . /2019 Medical OLATE:ORDQN 10,000 - 50,000 CFU/mL [facility] :[facility] CEFTRIAXONE Enterobacter Enterobact 02/21 [place] :SUSC:PT:IS cloacae er cloacae Medical OLATE:ORDQN Center :[facility] URINE AND UA Color Light Yellow Yellow 02/21 [facility] STOOL *NA* [facility] (02/21/20 9:52 PM) [place] URINE AND UA Turbidity Slight Clear 02/21 [facility] STOOL *ABN* /2019 [facility] (02/21/20 9:52 PM) [place] URINE AND UA Spec Grav 1.015 <=1.030 02/21 [facility] STOOL /[address] [place] [address] URINE AND UA pH 5.0 5.0 - 8.0 02/21 [facility] STOOL /[address] [place] [address] URINE AND UA Protein Negative Negative 02/21 [facility] mg/dL mg/dL /[address] [place] [address] URINE AND UA Glucose 500 mg/dL Negative 02/21 [facility] STOOL mg/dL /[address] [place] [address] URINE AND UA Ketones Negative Negative 02/21 [facility] mg/dL mg/dL /[address] [place] [address] URINE AND UA Bili Negative Negative 02/21 [facility] STOOL *NA* [facility] (02/21/20 9:52 PM) [place] URINE AND UA Blood Negative Negative 02/21 [facility] (02/21/20 9:52 PM) /[facility] [place] URINE AND UA <1.0 0.1 - 1.0 02/21 [facility] Urobilinogen /[address] [place] [address] URINE AND UA Nitrite Positive Negative 02/21 [facility] STOOL *ABN* /[address] [place] [address] (02/21/20 9:52 PM) [place] URINE AND UA Leuk Est Trace Negative 02/21 [facility] STOOL *ABN* [facility] (02/21/20 9:52 PM) Center URINE AND UA Sq Epi Occasional Few /LPF 02/21 [facility] STOOL /F /[address] [place] [address] URINE AND UA WBC 16 0 - 5 02/[address] URINE AND UA RBC 2 0 - 2 02/[address] URINE AND UA Bacteria Occasional None Seen 02/[place] /HPF /HPF /[address] [place] [address] URINE AND UA Mucus Few /LPF None Seen 02/21 [facility] STOOL /F /[address] [place] [address] URINE AND UA Hyal Cast 3 0 - 2 02/[address] CHEM PANEL Lactic Acid 2.9 0.5 - 2.2 02/[address] CHEM PANEL Procalcitoni <0.05 0.00 - 02/21 [facility] n Lvl ng/mL 0.10 [facility] HEMATOLOGY Fibrinogen 158 230 - 510 02/[address] HEMATOLOGY PT 14.2 12.0 - 02/20 [facility] 14.7 /[address] [place] [address] HEMATOLOGY INR 1.10 0.85 - 02/20 [facility] 1.17 /2019 [facility] HEMATOLOGY PTT 43.0 22.9 - 02/20 [facility] 35.[address] HEMATOLOGY Fibrinogen 158 230 - 510 02/[address] BLOOD BANK ABO/Rh O POS 02/18 [facility] RESULTS /[address] [place] [address] BLOOD BANK Antibody Negative 02/18 [facility] RESULTS Scrn (02/19/20 9:31 AM) /2019 [facility] CHEM PANEL Glucose Lvl 102 70 - 99 02/[address] CHEM PANEL BUN 15 7 - 22 02/[address] CHEM PANEL Creatinine 0.67 0.50 - 02/18 [facility] Lvl 1.[address] [place] [address] CHEM PANEL Sodium Lvl 144 135 - 145 02/[address] CHEM PANEL Potassium 3.6 3.5 - 5.1 02/[address] CHEM PANEL Chloride Lvl 110 95 - 109 02/[address] CHEM PANEL CO2 29 24 - 32 02/[address] CHEM PANEL Calcium Lvl 8.4 8.5 - 10.5 02/18 [facility] /[address] [place] [address] CHEM PANEL AGAP 8.6 10.0 - 02/18 [place] 20.0 [facility] CHEM PANEL eGFR 87 02/18 [facility] Comment: The Medical eGFR is Center calculated [...] PANEL Magnesium 1.8 1.8 - 2.4 02/18 [facility] /2019 [facility] CHEM PANEL Phosphorus 2.5 2.5 - 4.5 02/[address] HEMATOLOGY PT 14.2 12.0 - 02/18 [place] 14.7 /2020 [facility] HEMATOLOGY INR 1.10 0.85 - 02/18 [facility] 1.17 [facility] HEMATOLOGY PTT 37.8 22.9 - 02/18 [place] 35.8 /2020 [facility] HEMATOLOGY Fibrinogen 167 230 - 510 02/18 [facility] /2019 [facility] HEMATOLOGY D-Dimer 0.96 02/18 [facility]2019 [facility] HEMATOLOGY Thrombin 25.6 15.0 - 02/18 [place] Time 21.2 /2020 [facility] HEMATOLOGY Fibrinogen 180 230 - 510 02/18 [facility] /2019 [facility] HEMATOLOGY PT 14.4 12.0 - 02/18 [place] 14.7 /2020 [facility] HEMATOLOGY INR 1.11 0.85 - 02/18 [place] 1.17 [facility] HEMATOLOGY PTT 37.1 22.9 - 02/18 [place] 35.8 /2020 [facility] HEMATOLOGY WBC 18.9 3.7 - 10.4 02/18 [facility]2020 [facility] HEMATOLOGY RBC 4.69 4.20 - 02/18 [facility] [place] 5.40 /2019 [facility] HEMATOLOGY Hgb 11.2 12.0 - 02/18 [facility] 16.0 /2019 [facility] HEMATOLOGY Hct 37.1 36.0 - 02/18 [facility] 48.0 /2019 [facility] HEMATOLOGY MCV 79.1 80.0 - 02/18 [facility] 98.0 /2019 [facility] HEMATOLOGY MCH 23.8 27.0 - 02/18 [facility] 31.0 /2019 [facility] HEMATOLOGY MCHC 30.1 32.0 - 02/18 [facility] 36.0 /2019 [facility] HEMATOLOGY RDW 18.7 11.5 - 02/18 [facility] 14.5 /2019 [facility] HEMATOLOGY Platelet 134 133 - 450 02/[address] HEMATOLOGY MPV 9.7 7.4 - 10.4 02/[address] HEMATOLOGY Segs 61.0 45.0 - 02/18 [facility] 75.0 /2019 [facility] HEMATOLOGY Lymphocytes 30.5 20.0 - 02/18 [facility] 40.0 /2019 [facility] HEMATOLOGY Monocytes 7.1 2.0 - 12.0 02/[address] HEMATOLOGY Eosinophils 0.7 0.0 - 4.0 02/[address] HEMATOLOGY Basophils 0.7 0.0 - 1.0 02/[address] HEMATOLOGY Neutrophils 11.5 1.5 - 8.1 02/18 [facility] /2019 [facility] HEMATOLOGY Lymphocytes 5.8 1.0 - 5.5 02/18 [facility] /[address] [place] [address] HEMATOLOGY Monocytes # 1.3 0.0 - 0.8 02/[address] HEMATOLOGY Eosinophils 0.1 0.0 - 0.5 02/18 [facility] /[address] [place] [address] HEMATOLOGY Basophils # 0.1 0.0 - 0.2 02/[address] PARATHYROID Ca Ion WB 1.11 1.05 - 02/18 [facility] PROFILE 1. /2019 [facility] PARATHYROID Ca Norm WB 1.12 1.05 - 02/18 [facility] PROFILE . [facility] CHEM PANEL Phosphorus 3.5 2.5 - 4.5 02/[address] CHEM PANEL Magnesium 1.6 1.8 - 2.4 02/17 [facility] Lvl /2019 [facility] CHEM PANEL Glucose Lvl 210 70 - 99 02/17 [facility] CHEM PANEL BUN 12 7 - 22 02/17 [facility]2019 [facility] CHEM PANEL Creatinine 0.67 0.50 - 02/17 [facility] Lvl 1.40 [facility] CHEM PANEL Sodium Lvl 141 135 - 145 02/17 2019 [facility] CHEM PANEL Potassium 3.3 3.5 - 5.1 02/[address] [facility] CHEM PANEL Chloride Lvl 106 95 - 109 02/17 [facility] CHEM PANEL CO2 28 24 - 32 02/17 [facility]2019 [facility] CHEM PANEL Calcium Lvl 8.7 8.5 - 10.5 02/17 [facility] CHEM PANEL AGAP 10.3 10.0 - 02/17 [facility] 20.0 [facility] CHEM PANEL eGFR 87 02/17 [facility] Comment: The Medical eGFR is Center [...] BMI. HEMATOLOGY PT 17.5 12.0 - 02/17 [facility] 14.7 [facility] HEMATOLOGY INR 1.42 0.85 - 02/17 [facility] 1.17 [facility] HEMATOLOGY PTT 82.9 22.9 - 02/17 [place] 35.8 [facility] HEMATOLOGY D-Dimer 0.68 02/[address] HEMATOLOGY Fibrinogen 108 230 - 510 02/17 [facility] Lvl /2019 [facility] HEMATOLOGY Thrombin >100 15.0 - 02/17 [facility] Time seconds 21.2 [facility] HEMATOLOGY WBC 16.3 3.7 - 10.4 02/[address] HEMATOLOGY RBC 4.72 4.20 - 02/17 [place] 5.40 /2019 [facility] HEMATOLOGY Hgb 11.4 12.0 - 02/17 [place] 16.0 /2019 [facility] HEMATOLOGY Hct 37.0 36.0 - 02/17 [place] 48.0 /2019 [facility] HEMATOLOGY MCV 78.4 80.0 - 02/17 [place] 98.0 /2019 [facility] HEMATOLOGY MCH 24.1 27.0 - 02/17 [place] 31.0 /2019 [facility] HEMATOLOGY MCHC 30.7 32.0 - 02/17 [facility] 36.0 /2019 [facility] HEMATOLOGY RDW 18.3 11.5 - 02/17 [facility] 14.5 /2019 [facility] HEMATOLOGY Platelet 151 133 - 450 02/[address] HEMATOLOGY MPV 9.7 7.4 - 10.4 02/[address] HEMATOLOGY Segs 66.2 45.0 - 02/17 [place] 75.0 /2019 [facility] HEMATOLOGY Lymphocytes 23.2 20.0 - 02/17 [place] 40.0 /2019 [facility] HEMATOLOGY Monocytes 9.3 2.0 - 12.0 02/[address] HEMATOLOGY Eosinophils 0.8 0.0 - 4.0 02/17 [facility] /[address] [place] [address] HEMATOLOGY Basophils 0.5 0.0 - 1.0 02/[address] HEMATOLOGY Neutrophils 10.8 1.5 - 8.1 [place] /2019 [facility] HEMATOLOGY Lymphocytes 3.8 1.0 - 5.5 02/17 [place] /2020 [facility] HEMATOLOGY Monocytes # 1.5 0.0 - 0.8 02/17 [facility] /[address] [place] [address] HEMATOLOGY Eosinophils 0.1 0.0 - 0.5 02/17 [place] # /[address] [place] [address] HEMATOLOGY Basophils # 0.1 0.0 - 0.2 02/17 [facility] /[address] [place] [address] HEMATOLOGY Microcyte 1+ None Seen 02/17 [place] *ABN* /2019 Medical (02/18/20 4:08 AM) Center PARATHYROID Ca Ion WB 1.13 1.05 - 02/17 [place] PROFILE 1.25 [facility] PARATHYROID Ca Norm WB 1.12 1.05 - 02/17 [place] PROFILE . [facility] IMMUNOLOGY Coronavirus Not Detected Not 02/16 [place] (COVID-19) (02/17/20 12:25 PM) Detected /2019 [facility] BLOOD BANK BB Note Result Note 4 02/16 Result [place] RESULTS (02/17/20 12:10 PM) Comment: [facility] roger 02/17/2020 [place] 14:11 [id number]
"Significant Findings of Positive Antibody Screen_ called to _Bryant Keen_ at _02/17/2020 14:11_ by _MG_. Read Back OK" BLOOD BANK ABO/Rh O POS 02/16 [facility] RESULTS /2019 [facility] BLOOD BANK Antibody Positive 02/16 [facility] RESULTS Scrn (02/17/20 12:10 PM) [facility] BLOOD BANK AB Int Anti-D 02/16 [facility] RESULTS /2019 [facility] BLOOD BANK Path AB Blood Bank 02/16 [facility] RESULTS Physician /2019 [place] The patient is a 75 y/o female with history of dementia, meningioma s/p resection 10 years ago with VPS, type II diabetes mellitus, HTN, HLD, CAD, hypothyroi dism, JD, seropositi ve myasthenia gravis (anti-stri ated muscle antibodies ), and recent spinal surgery around 3 weeks who presented as a direct transfer from [facility] due to concerns of MG exacerbati on. [...] resident, Dr. Doug Warner's, interpreta tion. CPT: 24809-LO CARDIAC Total CK 25 12 - 191 02/[address] CHEM PANEL Phosphorus 3.0 2.5 - 4.5 02/[address] CHEM PANEL Glucose Lvl 215 70 - 99 02/[address] CHEM PANEL BUN 11 7 - 22 02/[address] CHEM PANEL Creatinine 0.68 0.50 - 02/16 [facility] Lvl 1.40 [facility] CHEM PANEL Sodium Lvl 135 135 - 145 02/[address] CHEM PANEL Potassium 3.4 3.5 - 5.1 02/[address] [facility] [address] CHEM PANEL Chloride Lvl 101 95 - 109 02/16 [facility] [address] CHEM PANEL CO2 31 24 - 32 02/[address] CHEM PANEL Calcium Lvl 8.4 8.5 - 10.5 02/16 [facility] as [address] CHEM PANEL AGAP 6.4 10.0 - 02/16 [facility] 20.0 2019 [facility] CHEM PANEL eGFR 87 02/16 [place] [address] Comment: The Medical eGFR is Center calculated [...] CHEM PANEL Procalcitoni <0.05 0.00 - 02/16 [facility] n l 0.10 [facility] CHEM PANEL Lactic Acid 1.6 0.5 - 2.2 02/16 [facility] Lvl /2019 [facility] HEMATOLOGY WBC 16.0 3.7 - 10.4 02/[address] HEMATOLOGY RBC 5.23 4.20 - 02/16 [facility] 5.40 [facility] HEMATOLOGY Hgb 12.7 12.0 - 02/16 [facility] 16.0 [facility] HEMATOLOGY Hct 41.4 36.0 - 02/16 [facility] 48.0 /2019 [facility] HEMATOLOGY MCV 79.1 80.0 - 02/16 [facility] 98.0 [facility] HEMATOLOGY MCH 24.4 27.0 - 02/16 [facility] 31.0 [facility] HEMATOLOGY MCHC 30.8 32.0 - 02/16 [facility] 36.0 [facility] HEMATOLOGY RDW 18.3 11.5 - 02/16 [facility] 14.5 [facility] HEMATOLOGY Platelet 161 133 - 450 02/[address] HEMATOLOGY MPV 10.1 7.4 - 10.4 02/[address] HEMATOLOGY Segs 84.7 45.0 - 02/16 [facility] 75.0 /2019 [facility] HEMATOLOGY Lymphocytes 9.3 20.0 - 18 [facility] 40.0 /2020 [facility] HEMATOLOGY Monocytes 5.0 2.0 - 12.[address] HEMATOLOGY Eosinophils 0.5 0.0 - 4.0 02/16 [facility] /2019 [facility] HEMATOLOGY Basophils 0.5 0.0 - 1.[address] HEMATOLOGY Neutrophils 13.6 1.5 - 8.1 02/16 [facility] # /2019 [facility] HEMATOLOGY Lymphocytes 1.5 1.0 - 5.5 02/16 [facility] # /2019 [facility] Center HEMATOLOGY Monocytes # 0.8 0.0 - 0.8 02/16 [facility] /2019 [facility] HEMATOLOGY Basophils # 0.1 0.0 - 0.2 02/16 [facility] /2019 [facility] LIPIDS Trig 156 <=149 02/16 [facility] mg/dL /[address] [place] [address] LIPIDS Chol 154 <=199 02/16 [facility] mg/dL /2019 [facility] LIPIDS HDL 54 >=61 mg/dL 02/[address] LIPIDS CHD Risk 2.85 3.90 - 02/16 [facility] 5.80 [facility] LIPIDS LDL 69 <=99 mg/dL 02/16 [facility] (Calculated) /2019 [facility] LIPIDS VLDL 31 02/[address] URINE AND UA Color Yellow Yellow 02/15 [facility] STOOL *NA* /2019 [facility] (02/15/20 10:29 PM) Cente r URINE AND UA Turbidity Marked Clear 02/15 [facility] STOOL *ABN* [facility] (02/15/20 10:29 PM) Cente r URINE AND UA Spec Grav 1.015 <=1.030 02/15 [facility] STOOL /[address] [place] [address] URINE AND UA pH 7.0 5.0 - 8.0 02/15 [facility] STOOL /[address] [place] [address] URINE AND UA Protein Negative Negative 02/15 [facility] STOOL mg/dL mg/dL [facility] URINE AND UA Ketones Negative Negative 02/15 [facility] STOOL mg/dL mg/dL [facility] URINE AND UA Bili Negative Negative 02/15 [facility] STOOL *NA* [facility] (02/15/20 10:29 PM) Cente r URINE AND UA Blood Negative Negative 02/15 [facility] STOOL (02/15/20 10:29 PM) Medic al Center URINE AND UA <1.0 0.1 - 1.0 02/15 [facility] STOOL Urobilinogen /[address] [place] [address] URINE AND UA Nitrite Negative Negative 02/15 [facility] STOOL (02/15/20 10:29 PM) /2019 Medic al Center URINE AND UA Leuk Est Negative Negative 02/15 [facility] STOOL (02/15/20 10:29 PM) /2019 [facility] URINE AND UA Sq Epi Few /LPF Few /LPF 02/15 [facility] STOOL [address] URINE AND UA WBC 1 0 - 5 02/[address] URINE AND UA RBC 1 0 - 2 02/[address] URINE AND UA Bacteria Occasional None Seen 02/15 [place] STOOL /HPF /HPF /[address] [place] [address] URINE AND UA Mucus Few /LPF None Seen 02/15 [facility] STOOL /LPF /[address] [place] [address] URINE AND UA Amorph Moderate None Seen 02/15 [facility] STOOL [employer] /HPF /HPF /[address] [place] [address] URINE AND UA Hyal Cast 3 0 - 2 02/[address] URINE AND UA Glucose 150mg/dl 02/[address] CHEM PANEL Total 5.8 6.4 - 8.4 02/15 [facility] Protein [address] CHEM PANEL Albumin Lvl 2.4 3.5 - 5.0 02/15 [facility] [address] CHEM PANEL ALT 26 0 - 65 02/[address] CHEM PANEL AST 16 0 - 37 02/[address] CHEM PANEL Alk Phos 162 39 - 136 02/[address] CHEM PANEL Bili Total 0.3 0.2 - 1.3 02/[address] CHEM PANEL B/C Ratio 25 6 - 25 02/[address] CHEM PANEL Globulin 3.4 2.7 - 4.2 02/[address] CHEM PANEL A/G Ratio 0.7 0.7 - 1.6 02/[address] IMMUNOLOGY Coronavirus Not Detected Not 12/19 [place] (COVID-19) (12/20/19 12:18 PM) Detected /2019 [facility] CARDIAC Troponin-I 0.02 0.00 - 12/17 [facility] ENZYMES 0.[address] [place] [address] CHEM PANEL Glucose Lvl 145 70 - 99 12/[address] CHEM PANEL BUN 10 7 - 22 12/[address] CHEM PANEL Creatinine 0.64 0.50 - 12/17 [place] Lvl 1.[address] [place] [address] CHEM PANEL Sodium Lvl 143 135 - 145 12/17 [facility] CHEM PANEL Potassium 3.9 3.5 - 5.1 12/[address] [facility] CHEM PANEL Chloride Lvl 108 95 - 109 12/17 [facility] CHEM PANEL CO2 28 24 - 32 12/17 [facility]2019 [facility] CHEM PANEL AGAP 10.9 10.0 - 12/17 [facility] 20.0 [facility] CHEM PANEL Calcium Lvl 8.3 8.5 - 10.5 12/17 [facility] CHEM PANEL eGFR 89 12/17 [facility] Comment: The Medical eGFR is Center [...] PANEL Magnesium 2.1 1.8 - 2.4 12/[address] [facility] CHEM PANEL Phosphorus 3.2 2.5 - 4.5 12/17 [facility] HEMATOLOGY WBC 9.9 3.7 - 10.4 12/17 [facility] HEMATOLOGY RBC 3.09 4.20 - 12/17 [place] 5.40 [facility] HEMATOLOGY Hgb 9.1 12.0 - 12/17 [facility] 16.0 [facility] HEMATOLOGY Hct 28.9 36.0 - 12/17 [facility] 48.0 [facility] HEMATOLOGY MCV 93.7 80.0 - 12/17 [facility] 98.0 [facility] HEMATOLOGY MCH 29.4 27.0 - 12/17 [place] 31.0 [facility] HEMATOLOGY MCHC 31.4 32.0 - 12/17 [place] 36.0 [facility] HEMATOLOGY RDW 16.7 11.5 - 12/17 [facility] 14.5 [facility] HEMATOLOGY Platelet 200 133 - 450 12/[address] HEMATOLOGY MPV 10.2 7.4 - 10.4 12/[address] HEMATOLOGY Segs 66.2 45.0 - 12/17 [facility] 75.0 [facility] HEMATOLOGY Lymphocytes 23.0 20.0 - 12/17 [place] 40.0 /2019 [facility] HEMATOLOGY Monocytes 8.2 2.0 - 12.0 12/[address] HEMATOLOGY Eosinophils 1.2 0.0 - 4.0 12/[address] HEMATOLOGY Basophils 1.4 0.0 - 1.0 12/[address] HEMATOLOGY Neutrophils 6.5 1.5 - 8.1 12/17 [facility] /[address] [place] [address] HEMATOLOGY Lymphocytes 2.3 1.0 - 5.5 12/17 [facility] /[address] [place] [address] HEMATOLOGY Monocytes # 0.8 0.0 - 0.8 12/[address] HEMATOLOGY Eosinophils 0.1 0.0 - 0.5 12/17 [facility] /[address] [place] [address] HEMATOLOGY Basophils # 0.1 0.0 - 0.2 12/[address] URINE AND UA Color Dark Yellow Yellow 12/17 [facility] STOOL *NA* /2019 [facility] (12/18/19 5:06 AM) [place] URINE AND UA Turbidity Slight Clear 12/17 [facility] STOOL *ABN* [facility] (12/18/19 5:06 AM) [place] URINE AND UA Spec Grav 1.018 <=1.030 12/17 [facility] /[address] [place] [address] URINE AND UA pH 6.0 5.0 - 8.0 12/[address] URINE AND UA Protein 30 mg/dL Negative 12/17 [facility] STOOL mg/dL /[address] [place] [address] URINE AND UA Ketones Negative Negative 12/17 [facility] STOOL mg/dL mg/dL /[address] [place] [address] URINE AND UA Bili Negative Negative 12/17 [facility] STOOL *NA* /2019 [facility] (12/18/19 5:06 AM) [place] URINE AND UA Blood Negative Negative 12/17 [facility] STOOL (12/18/19 5:06 AM) /2019 [facility] URINE AND UA 4.0 0.1 - 1.0 12/17 [facility] Urobilinogen /[address] [place] [address] URINE AND UA Nitrite Negative Negative 12/17 [facility] STOOL (12/18/19 5:06 AM) [facility] URINE AND UA Leuk Est Negative Negative 12/17 [facility] (12/18/19 5:06 AM) /2019 [facility] URINE AND UA Sq Epi Moderate Few /LPF 12/17 [facility] STOOL /LPF /[address] [place] [address] URINE AND UA WBC 10 0 - 5 12/[address] URINE AND UA RBC 2 0 - 2 12/[address] URINE AND UA Bacteria Few /HPF None Seen 12/17 [facility] STOOL /HPF /[address] [place] [address] URINE AND UA Mucus Few /LPF None Seen 12/17 [facility] /LPF /[address] [place] [address] URINE AND UA Hyal Cast 7 0 - 2 12/[address] URINE AND UA [place] Yeast Occasional None Seen 12/17 [place] STOOL /HPF /HPF /[address] [place] [address] URINE AND UA Glucose 50mg/dl 12/[address] CHEM PANEL Glucose Lvl 266 70 - 99 12/[address] CHEM PANEL BUN 11 7 - 22 12/[address] CHEM PANEL Creatinine 0.80 0.50 - 12/16 [facility] Lvl 1.[address] [place] [address] CHEM PANEL Sodium Lvl 140 135 - 145 12/[address] CHEM PANEL Potassium 3.4 3.5 - 5.1 12/[address] [facility] /[address] [place] [address] CHEM PANEL Chloride Lvl 105 95 - 109 12/16 [facility] [address] CHEM PANEL CO2 31 24 - 32 12/[address] CHEM PANEL Calcium Lvl 8.2 8.5 - 10.5 12/16 [facility] [address] CHEM PANEL AGAP 7.4 10.0 - 12/16 [facility] 20.0 2019 [facility] CHEM PANEL eGFR 74 12/16 Result [facility] Comment: The Medical eGFR is Center [...] PANEL Magnesium 1.9 1.8 - 2.4 12/16 [facility] Lvl /[address] [place] [address] CHEM PANEL Phosphorus 2.8 2.5 - 4.5 12/[address] HEMATOLOGY WBC 8.9 3.7 - 10.4 12/[address] HEMATOLOGY RBC 3.03 4.20 - 12/16 [place] 5.40 [facility] HEMATOLOGY Hgb 9.3 12.0 - 12/16 [place] 16.0 /2019 [facility] HEMATOLOGY Hct 28.4 36.0 - 12/16 [place] 48.0 /2019 [facility] HEMATOLOGY MCV 93.8 80.0 - 12/16 [place] 98.0 /2019 [facility] HEMATOLOGY MCH 30.7 27.0 - 12/16 [place] 31.0 /2019 [facility] HEMATOLOGY MCHC 32.8 32.0 - 12/16 [place] 36.0 /2019 [facility] HEMATOLOGY RDW 16.9 11.5 - 18 [place] 14.5 /2019 [facility] HEMATOLOGY Platelet 197 133 - 450 12/[address] HEMATOLOGY MPV 9.7 7.4 - 10.4 12/[address] HEMATOLOGY Segs 71.0 45.0 - 12/16 [place] 75.0 /2019 [facility] HEMATOLOGY Lymphocytes 16.3 20.0 - 18 [place] 40.0 /2020 [facility] HEMATOLOGY Monocytes 6.5 2.0 - 12.0 12/[address] HEMATOLOGY Eosinophils 4.0 0.0 - 4.0 [place] [facility] HEMATOLOGY Basophils 2.2 0.0 - 1.0 12/[address] HEMATOLOGY Neutrophils 6.3 1.5 - 8.1 12/16 [facility] /2019 [facility] HEMATOLOGY Lymphocytes 1.4 1.0 - 5.5 12/16 [facility] HEMATOLOGY Monocytes # 0.6 0.0 - 0.8 12/[address] HEMATOLOGY Eosinophils 0.4 0.0 - 0.5 12/16 [facility] /2019 [facility] HEMATOLOGY Basophils # 0.2 0.0 - 0.2 12/[address] CARDIAC Troponin-I 0.03 0.00 - 12/14 [facility] ENZYMES 0.40 [facility] CHEM PANEL Glucose Lvl 155 70 - 99 12/[address] CHEM PANEL BUN 12 7 - 22 12/[address] CHEM PANEL Creatinine 0.59 0.50 - 12/[address] [facility] 1.40 2019 [facility] CHEM PANEL Sodium Lvl 142 135 - 145 12/[address] CHEM PANEL Potassium 3.9 3.5 - 5.1 12/[address] CHEM PANEL Chloride Lvl 103 95 - 109 12/[address] CHEM PANEL CO2 34 24 - 32 12/[address] CHEM PANEL Calcium Lvl 8.3 8.5 - 10.5 12/[address] CHEM PANEL AGAP 8.9 10.0 - 12/14 [facility] 20.0 2019 [facility] CHEM PANEL eGFR 92 12/14 Result [place] [address] Comment: The Medical eGFR is Center calculated [...] PANEL Magnesium 2.1 1.8 - 2.4 12/14 [facility] Lvl /[address] [place] [address] CHEM PANEL Phosphorus 2.4 2.5 - 4.5 12/[address] HEMATOLOGY WBC 11.9 3.7 - 10.4 12/[address] HEMATOLOGY RBC 3.25 4.20 - 12/14 [place] 5.40 /2019 [facility] HEMATOLOGY Hgb 9.5 12.0 - 12/14 [facility] 16.0 /2019 [facility] HEMATOLOGY Hct 30.4 36.0 - 12/14 [place] 48.0 /[address] [place] [address] HEMATOLOGY MCV 93.5 80.0 - 12/14 [place] 98.0 /[address] [place] [address] HEMATOLOGY MCH 29.3 27.0 - 12/14 [place] 31.0 /[address] [place] [address] HEMATOLOGY MCHC 31.4 32.0 - 12/14 [place] 36.0 /[address] [place] [address] HEMATOLOGY RDW 17.3 11.5 - 12/14 [place] 14.5 /[address] [place] [address] HEMATOLOGY Platelet 193 133 - 450 12/[address] HEMATOLOGY MPV 10.2 7.4 - 10.4 12/[address] HEMATOLOGY Segs 69.3 45.0 - 12/14 [place] 75.0 /[address] [place] [address] HEMATOLOGY Lymphocytes 18.5 20.0 - 12/14 [place] 40.0 /2020 [facility] HEMATOLOGY Monocytes 7.6 2.0 - 12.0 12/[address] HEMATOLOGY Eosinophils 3.8 0.0 - 4.0 12/14 [facility] /[address] [place] [address] HEMATOLOGY Basophils 0.8 0.0 - 1.0 12/[address] HEMATOLOGY Neutrophils 8.3 1.5 - 8.1 12/14 [place] # /[address] [place] [address] HEMATOLOGY Lymphocytes 2.2 1.0 - 5.5 12/14 [place] # /[address] [place] [address] HEMATOLOGY Monocytes # 0.9 0.0 - 0.8 12/14 [place] /[address] [place] [address] HEMATOLOGY Eosinophils 0.5 0.0 - 0.5 12/14 [place] # /2019 [facility] HEMATOLOGY Basophils # 0.1 0.0 - 0.2 12/14 [facility] /2020 [facility] HEMATOLOGY RBC Morph Normal Normal 12/13 [facility] (12/14/19 6:58 AM) /2019 [facility] [place] HEMATOLOGY Plt Morph Normal Normal 12/13 [facility] (12/14/19 6:58 AM) /2019 [facility] [place] CHEM PANEL Total 5.2 6.4 - 8.4 12/10 [facility] Protein /[address] [place] [address] CHEM PANEL Albumin Lvl 2.2 3.5 - 5.0 12/10 [facility] /2019 [facility] CHEM PANEL ALT 22 0 - 65 12/[address] CHEM PANEL AST 13 0 - 37 12/[address] CHEM PANEL Alk Phos 251 39 - 136 12/[address] CHEM PANEL Bili Total 0.9 0.2 - 1.3 12/[address] CHEM PANEL B/C Ratio 25 6 - 25 12/[address] CHEM PANEL Globulin 3.0 2.7 - 4.2 12/[address] CHEM PANEL A/G Ratio 0.7 0.7 - 1.6 12/[address] BODY FLUIDS Cris Occult Positive Negative 12/08 [facility] Bld *ABN* /2019 [facility] (12/09/19 12:45 PM) Cente r HEMATOLOGY RBC Morph Normal Normal 12/08 [facility] (12/09/19 11:46 AM) /2019 [facility] [place] HEMATOLOGY Plt Morph Normal Normal 12/08 [facility] (12/09/19 11:46 AM) /2019 [facility] [place] CHEM PANEL Total 4.5 6.4 - 8.4 12/06 [facility] Protein /[address] [place] [address] CHEM PANEL Albumin Lvl 2.5 3.5 - 5.0 12/06 [facility] /[address] [place] [address] CHEM PANEL ALT 27 0 - 65 12/[address] CHEM PANEL AST 11 0 - 37 12/[address] CHEM PANEL Alk Phos 82 39 - [address] CHEM PANEL Bili Total 0.8 0.2 - 1.3 12/[address] CHEM PANEL Bili Direct 0.3 0.0 - 0.3 07[place] [facility] CHEM PANEL Bili 0.5 0.0 - 1.0 12/06 [facility] Indirect /2019 [facility] CHEM PANEL Globulin 2.0 2.7 - 4.2 12/06 [facility] /[address] [place] [address] CHEM PANEL A/G Ratio 1.2 0.7 - 1.6 12/06 [facility] /[address] [place] [address] PARATHYROID Ca Ion WB 1.05 1.05 - 12/06 [facility] PROFILE [address] [place] [address] PARATHYROID Ca Norm WB 1.09 1.05 - 12/06 [facility] PROFILE 1.25 [facility] HEMATOLOGY PTT 31.1 22.9 - 12/05 [place] 35.8 [facility] HEMATOLOGY PT 15.3 12.0 - 12/05 [facility] 14.7 [facility] HEMATOLOGY INR 1.20 0.85 - 12/05 [facility] 1.17 [facility] PARATHYROID Ca Ion WB 1.06 1.05 - 12/05 [facility] PROFILE [address] [place] [address] PARATHYROID Ca Norm WB 1.10 1.05 - 12/05 [facility] PROFILE . [facility] BLOOD BANK RBC product Product available 12/04 [facility] RESULTS (12/05/19 5:53 PM) /[address] [place] [address] HEMATOLOGY Plt Morph See Note 1 Normal 12/04 Result [facility] (12/05/19 5:43 PM) /2019 Comment: Mary Beth forde [facility] platelets are seen HEMATOLOGY Anisocyte 1+ None Seen 12/04 [facility] *ABN* /2019 [facility] (12/05/19 5:43 PM) [place] BLOOD BANK RBC product Product available 12/04 [facility] RESULTS (12/05/19 5:21 PM) /2019 [facility] BLOOD BANK Antibody Negative 12/04 [facility] RESULTS Scrn (12/05/19 1:02 AM) /2019 [facility] BLOOD BANK ABO/Rh O POS 12/04 [facility] RESULTS /2019 [facility] BLOOD BANK BB Note Result Note 5 12/04 Result [facility] RESULTS (12/05/19 1:02 AM) /2019 Comment: Medica l 12/05/2019 [place] 15:15 LIPETERS
Blood available, notified Alyx Weston in [place] 2 at [id number] by lp. HEMATOLOGY PT 12.8 12.0 - 12/04 [place] 14.7 [facility] HEMATOLOGY INR 0.96 0.85 - 12/04 [facility] 1.17 /2019 [facility] HEMATOLOGY PTT 28.3 22.9 - 12/04 [facility] 35.8 [facility] CHEM PANEL Glucose Lvl 146 70 - 99 07 [facility] CHEM PANEL BUN 16 7 - 22 07 [facility] CHEM PANEL Creatinine 0.75 0.50 - 11/[address] [facility] 1.40 [facility] CHEM PANEL Sodium Lvl 142 135 - 145 07 [facility]2019 [facility] CHEM PANEL Potassium 3.7 3.5 - 5.1 07/ [facility] CHEM PANEL Chloride Lvl 106 95 - 109 07 [facility] CHEM PANEL CO2 29 24 - 32 11/30 [facility]2019 [facility] CHEM PANEL Calcium Lvl 8.3 8.5 - 10.5 11/30 [facility] CHEM PANEL AGAP 10.7 10.0 - 11/30 [facility] 20.0 [facility] CHEM PANEL eGFR 80 11/30 [facility] Comment: The Medical eGFR is Center [...] HEMATOLOGY WBC 11.0 3.7 - 10.4 07/ [facility] HEMATOLOGY RBC 4.45 4.20 - 07/ [facility] 5.40 [facility] HEMATOLOGY Hgb 13.7 12.0 - 07/ [facility] 16.0 [facility] HEMATOLOGY Hct 41.0 36.0 - 07/ [facility] 48.0 /[address] [place] [address] HEMATOLOGY MCV 92.1 80.0 - 11/30 [facility] 98.0 /[address] [place] [address] HEMATOLOGY MCH 30.7 27.0 - 07 [facility] 31.0 /2019 [facility] HEMATOLOGY MCHC 33.4 32.0 - / [facility] 36.0 /[address] [place] [address] HEMATOLOGY RDW 16.7 11.5 - 11/30 [facility] 14.5 /[address] [place] [address] HEMATOLOGY Platelet 173 133 - [address] HEMATOLOGY MPV 9.6 7.4 - 10.4 11/[address] HEMATOLOGY Segs 67.9 45.0 - 07 [facility] 75.0 /[address] [place] [address] HEMATOLOGY Lymphocytes 20.7 20.0 - 11/30 [facility] 40.[address] HEMATOLOGY Monocytes 9.8 2.0 - 12.0 11/[address] HEMATOLOGY Eosinophils 0.7 0.0 - 4.0 11/[address] HEMATOLOGY Basophils 0.9 0.0 - 1.0 11/[address] HEMATOLOGY Neutrophils 7.4 1.5 - 8.1 11/[address] HEMATOLOGY Lymphocytes 2.3 1.0 - 5.5 11/[address] HEMATOLOGY Monocytes # 1.1 0.0 - 0.8 11/[address] HEMATOLOGY Eosinophils 0.1 0.0 - 0.5 11/[address] HEMATOLOGY Basophils # 0.1 0.0 - 0.2 11/[address] URINE AND UA Color Light Yellow Yellow 11/30 [facility] STOOL *NA* /[address] [place] [address] (11/30/19 8:14 PM) [place] URINE AND UA Turbidity Clear Clear 11/30 [facility] (11/30/19 8:14 PM) [address] URINE AND UA Spec Grav 1.012 <=1.030 11/[address] URINE AND UA pH 7.0 5.0 - 8.0 11/[address] URINE AND UA Protein Negative Negative 11/30 [facility] STOOL mg/dL mg/dL /[address] [place] [address] URINE AND UA Ketones 20 mg/dL Negative 11/30 [facility] mg/dL /[address] [place] [address] URINE AND UA Bili Negative Negative 11/30 [facility] *NA* /2019 [facility] (11/30/19 8:14 PM) Center URINE AND UA Blood Small Negative 11/30 [facility] *ABN* /2019 [facility] (11/30/19 8:14 PM) [place] URINE AND UA <1.0 0.1 - 1.0 11/30 [facility] Urobilinogen /[address] [place] [address] URINE AND UA Nitrite Negative Negative 11/30 [facility] (11/30/19 8:14 PM) /[address] [place] [address] URINE AND UA Leuk Est Negative Negative 11/30 [facility] (11/30/19 8:14 PM) /[address] [place] [address] URINE AND UA Sq Epi Occasional Few /LPF 11/30 [facility] /LPF /[address] [place] [address] URINE AND UA WBC <1 0 - 5 11/[address] URINE AND UA RBC 1 0 - 2 11/[address] URINE AND UA Bacteria Occasional None Seen 11/30 [place] [facility] /HPF /HPF /[address] [place] [address] URINE AND UA Mucus Few /LPF None Seen 11/30 [facility] /LPF /[address] [place] [address] URINE AND UA Glucose 50mg/dl 11/[address] CHEM PANEL Glucose Lvl 116 70 - 99 11/[address] CHEM PANEL BUN 22 7 - 22 11/[address] CHEM PANEL Creatinine 0.83 0.50 - 11/29 [facility] 1.40 /[address] [place] [address] CHEM PANEL Sodium Lvl 140 135 - 145 11/[address] CHEM PANEL Potassium 5.3 3.5 - 5.1 11/29 Result [facility] Comment: Medical Specimen Center Grossly Hemolyzed. CHEM PANEL Chloride Lvl 105 95 - 109 07 [facility] [address] CHEM PANEL CO2 28 24 - 32 11/[address] CHEM PANEL Calcium Lvl 7.8 8.5 - 10.5 11/[address] CHEM PANEL AGAP 12.3 10.0 - 07 [facility] 20.[address] CHEM PANEL eGFR 71 07 Result [place] [address] Comment: The Medical eGFR is Center calculated [...] HEMATOLOGY WBC 10.6 3.7 - 10.4 07/ [address] HEMATOLOGY RBC 4.40 4.20 - 07 [place] 5.40 /2019 [facility] HEMATOLOGY Hgb 13.0 12.0 - 07 [place] 16.0 /2019 [facility] HEMATOLOGY Hct 40.0 36.0 - 07 [place] 48.0 /2019 [facility] HEMATOLOGY MCV 91.0 80.0 - 07/ [place] 98.0 /2019 [facility] HEMATOLOGY MCH 29.5 27.0 - 07/ [place] 31.0 [facility] HEMATOLOGY MCHC 32.4 32.0 - 07/ [place] 36.0 [facility] HEMATOLOGY RDW 16.5 11.5 - 07/ [place] 14.5 [facility] HEMATOLOGY Platelet 153 133 - 450 07/ [address] HEMATOLOGY MPV 10.0 7.4 - 10.4 / [address] HEMATOLOGY PT 13.3 12.0 - 07/ [place] 14.7 /2019 [facility] HEMATOLOGY INR 1.01 0.85 - 07/ [place] 1.17 [facility] HEMATOLOGY PTT 29.5 22.9 - 07/ [place] 35.8 /2019 [facility] HEMATOLOGY Segs 59.5 45.0 - 07/01 [place] 75.0 /2020 [facility] HEMATOLOGY Lymphocytes 29.2 20.0 - 07/01 [place] 40.0 /2020 [facility] HEMATOLOGY Monocytes 9.3 2.0 - 12.0 11/[address] HEMATOLOGY Eosinophils 1.0 0.0 - 4.0 11/[address] HEMATOLOGY Basophils 1.0 0.0 - 1.0 11/[address] HEMATOLOGY Neutrophils 6.3 1.5 - 8.1 11/[address] HEMATOLOGY Lymphocytes 3.1 1.0 - 5.5 11/29 [facility]2019 [facility] HEMATOLOGY Monocytes # 1.0 0.0 - 0.8 11/[address] HEMATOLOGY Eosinophils 0.1 0.0 - 0.5 11/[address] HEMATOLOGY Basophils # 0.1 0.0 - 0.2 11/[address] BLOOD BANK ABO/Rh O POS 11/28 [facility] RESULTS [address] BLOOD BANK Antibody Negative 11/28 [facility] RESULTS Scrn (11/29/19 4:04 AM) [facility] CHEM PANEL Glucose Lvl 97 70 - 99 11/[address] CHEM PANEL BUN 26 7 - 22 11/[address] CHEM PANEL Creatinine 0.90 0.50 - 11/[address] [facility] 1.40 2019 [facility] CHEM PANEL Sodium Lvl 140 135 - 145 11/[address] CHEM PANEL Potassium 3.9 3.5 - 5.1 11/[address] CHEM PANEL Chloride Lvl 106 95 - 109 11/[address] CHEM PANEL CO2 32 24 - 32 11/[address] CHEM PANEL Calcium Lvl 8.7 8.5 - 10.5 11/[address] CHEM PANEL AGAP 5.9 10.0 - 11/28 [facility] 20.0 2019 [facility] CHEM PANEL eGFR 64 11/28 Result [place] [address] Comment: The Medical eGFR is Center calculated [...] 13.6 12.0 - 11/28 [place] 14.7 /2019 [facility] HEMATOLOGY INR 1.04 0.85 - 11/28 [place] 1.17 [facility] HEMATOLOGY PTT 30.9 22.9 - 11/28 [place] 35.8 /2019 [facility] HEMATOLOGY WBC 10.6 3.7 - 10.4 11/[address] HEMATOLOGY RBC 4.50 4.20 - 11/28 [place] 5.40 /2019 [facility] HEMATOLOGY Hgb 13.5 12.0 - 11/28 [place] 16.0 /2019 [facility] HEMATOLOGY Hct 40.4 36.0 - 11/28 [place] 48.0 /2019 [facility] HEMATOLOGY MCV 89.8 80.0 - 11/28 [place] 98.0 /2019 [facility] HEMATOLOGY MCH 30.0 27.0 - 11/28 [place] 31.0 /2019 [facility] HEMATOLOGY MCHC 33.4 32.0 - 11/28 [place] 36.0 /2019 [facility] HEMATOLOGY RDW 16.7 11.5 - 11/28 [facility] 14.5 /2019 [facility] HEMATOLOGY Platelet 155 133 - 450 11/[address] HEMATOLOGY MPV 9.5 7.4 - 10.4 11/[address] HEMATOLOGY Segs 65.7 45.0 - 30 [place] 75.0 /[address] [place] [address] HEMATOLOGY Lymphocytes 24.6 20.0 - 30 [place] 40.0 2020 [facility] HEMATOLOGY Monocytes 8.2 2.0 - 12.[address] HEMATOLOGY Eosinophils 0.8 0.0 - 4.0 [place] [facility] HEMATOLOGY Basophils 0.7 0.0 - 1.[address] HEMATOLOGY Neutrophils 6.9 1.5 - 8.1 06/30 [facility] # /2019 [facility] HEMATOLOGY Lymphocytes 2.6 1.0 - 5.5 11/28 [facility] # /2019 [facility] HEMATOLOGY Monocytes # 0.9 0.0 - 0.8 11/28 [facility] /2020 [facility] HEMATOLOGY Eosinophils 0.1 0.0 - 0.5 11/28 [facility] # /2019 [facility] HEMATOLOGY Basophils # 0.1 0.0 - 0.2 11/28 [facility] /2019 [facility] IMMUNOLOGY Coronavirus Not Detected Not 11/26 [place] (COVID-19) (11/27/19 4:00 PM) Detected [facility] CHEM PANEL Glucose Lvl 137 70 - 99 11/[address] CHEM PANEL BUN 24 7 - 22 11/[address] CHEM PANEL Creatinine 0.60 0.50 - 11/26 [facility] Lvl 1.40 [facility] CHEM PANEL Sodium Lvl 143 135 - 145 11/[address] CHEM PANEL Potassium 3.4 3.5 - 5.1 11/[address] [facility] /[address] [place] [address] CHEM PANEL Chloride Lvl 107 95 - 109 11/26 [facility]2019 [facility] CHEM PANEL CO2 29 24 - 32 11/[address] CHEM PANEL Calcium Lvl 8.3 8.5 - 10.5 11/26 [facility] /2019 [facility] CHEM PANEL AGAP 10.4 10.0 - 11/26 [facility] 20.0 [facility] CHEM PANEL eGFR 91 11/26 Result Comment: [...] HEMATOLOGY WBC 10.2 3.7 - 10.4 11/[address] HEMATOLOGY RBC 4.57 4.20 - 11/26 [facility] 5.40 [facility] HEMATOLOGY Hgb 13.6 12.0 - 11/26 [facility] 16.0 [facility] HEMATOLOGY Hct 41.4 36.0 - 11/26 [facility] 48.0 2019 [facility] HEMATOLOGY MCV 90.4 80.0 - 11/26 [facility] 98.0 [facility] HEMATOLOGY MCH 29.8 27.0 - 11/26 [facility] 31.0 [facility] HEMATOLOGY MCHC 32.9 32.0 - 11/26 [facility] 36.0 2019 [facility] HEMATOLOGY RDW 16.7 11.5 - 11/26 [facility] 14.5 2019 [facility] HEMATOLOGY Platelet 146 133 - 450 11/[address] HEMATOLOGY MPV 9.8 7.4 - 10.4 11/[address] LIPIDS Trig 167 <=149 11/24 [facility] mg/dL [address] LIPIDS Chol 151 <=199 11/24 [facility] mg/dL [address] LIPIDS HDL 50 >=61 mg/dL 11/[address] LIPIDS CHD Risk 3.02 3.90 - 11/24 [facility] 5.[address] LIPIDS LDL 68 <=99 mg/dL 11/24 [facility] (Calculated) [address] LIPIDS VLDL 33 11/[address] SPECIAL Hgb A1C 8.5 <=5.6 % 11/24 [facility] CHEMISTRY [address] HEMATOLOGY Anti-Xa Low 0.45 11/24 [facility] Molecular [address] [facility] CHEM PANEL Glucose Lvl 132 70 - 99 11/[address] CHEM PANEL BUN 19 7 - 22 11/[address] CHEM PANEL Creatinine 0.76 0.50 - 11/23 [facility] Lvl 1.[address] [place] [address] CHEM PANEL Sodium Lvl 141 135 - 145 11/[address] CHEM PANEL Potassium 3.7 3.5 - 5.1 11/23 [facility] /[address] [place] [address] CHEM PANEL Chloride Lvl 108 95 - 109 11/23 [facility] CHEM PANEL CO2 27 24 - 32 11/[address] CHEM PANEL AGAP 9.7 10.0 - 11/23 [facility] 20.0 [facility] CHEM PANEL Calcium Lvl 8.7 8.5 - 10.5 11/23 [facility] CHEM PANEL eGFR 79 11/23 Result Comment: [...] BMI. HEMATOLOGY Segs 90.7 45.0 - 11/23 [facility] 75.0 [facility] HEMATOLOGY Lymphocytes 6.4 20.0 - 11/23 [facility] 40.0 [facility] HEMATOLOGY Monocytes 2.1 2.0 - 12.0 11/[address] HEMATOLOGY Eosinophils 0.3 0.0 - 4.0 11/23 [facility] /2019 [facility] HEMATOLOGY Basophils 0.5 0.0 - 1.0 11/[address] HEMATOLOGY Neutrophils 15.1 1.5 - 8.1 11/23 [facility] # [facility] HEMATOLOGY Lymphocytes 1.1 1.0 - 5.5 11/23 [facility] # /2019 [facility] HEMATOLOGY Monocytes # 0.3 0.0 - 0.8 11/23 [facility] [address] HEMATOLOGY Basophils # 0.1 0.0 - 0.2 11/23 [facility] /2019 [facility] HEMATOLOGY WBC 16.7 3.7 - 10.4 11/[address] HEMATOLOGY RBC 5.00 4.20 - 11/23 [place] 5.40 [facility] HEMATOLOGY Hgb 15.1 12.0 - 11/23 [facility] 16.0 [facility] HEMATOLOGY Hct 45.1 36.0 - 11/23 [facility] 48.0 [facility] HEMATOLOGY MCV 90.2 80.0 - 11/23 [facility] 98.0 [facility] HEMATOLOGY MCH 30.1 27.0 - 11/23 [facility] 31.0 [facility] HEMATOLOGY MCHC 33.4 32.0 - 11/23 [facility] 36.0 [facility] HEMATOLOGY RDW 16.3 11.5 - 11/23 [facility] 14.5 [facility] HEMATOLOGY Platelet 148 133 - 450 11/23 [facility]2019 [facility] HEMATOLOGY MPV 9.6 7.4 - 10.4 11/[address] CHEM PANEL Glucose Lvl 375 70 - 99 11/[address] CHEM PANEL BUN 18 7 - 22 11/[address] CHEM PANEL Creatinine 0.96 0.50 - 11/22 [facility] Lvl 1.40 [facility] CHEM PANEL Sodium Lvl 137 135 - 145 11/[address] CHEM PANEL Potassium 4.3 3.5 - 5.1 11/22 [facility] /2019 [facility] CHEM PANEL Chloride Lvl 105 95 - 109 11/22 [facility] CHEM PANEL CO2 26 24 - 32 11/[address] CHEM PANEL AGAP 10.3 10.0 - 11/22 [facility] 20.0 [facility] CHEM PANEL Calcium Lvl 8.8 8.5 - 10.5 11/22 [facility] CHEM PANEL eGFR 59 11/22 [facility] Comment: The Medical eGFR is Center [...] 81.3 45.0 - 11/22 [place] 75.0 /2019 [facility] HEMATOLOGY Lymphocytes 11.5 20.0 - 11/22 [place] 40.0 /2019 [facility] HEMATOLOGY Monocytes 5.4 2.0 - 12.0 11/[address] HEMATOLOGY Eosinophils 0.8 0.0 - 4.0 11/[address] HEMATOLOGY Basophils 1.0 0.0 - 1.0 11/[address] HEMATOLOGY Neutrophils 15.8 1.5 - 8.1 11/22 [place] # /2020 [facility] HEMATOLOGY Lymphocytes 2.2 1.0 - 5.5 11/22 [facility] # /[address] [place] [address] HEMATOLOGY Monocytes # 1.1 0.0 - 0.8 11/22 [facility] /[address] [place] [address] HEMATOLOGY Eosinophils 0.2 0.0 - 0.5 11/22 [facility] # /[address] [place] [address] HEMATOLOGY Basophils # 0.2 0.0 - 0.2 11/22 [facility] /[address] [place] [address] HEMATOLOGY WBC 19.4 3.7 - 10.4 11/[address] HEMATOLOGY RBC 5.40 4.20 - 11/22 [place] 5.40 /2019 [facility] HEMATOLOGY Hgb 16.1 12.0 - 11/22 [place] 16.0 /2019 [facility] HEMATOLOGY Hct 49.1 36.0 - 11/22 [place] 48.0 /2019 [facility] HEMATOLOGY MCV 91.0 80.0 - 11/22 [place] 98.0 /2019 [facility] HEMATOLOGY MCH 29.9 27.0 - 11/22 [place] 31.0 /2019 [facility] HEMATOLOGY MCHC 32.9 32.0 - 11/22 [place] 36.0 /2020 [facility] HEMATOLOGY RDW 16.7 11.5 - 11/22 [place] 14.5 /2019 [facility] HEMATOLOGY Platelet 168 133 - 450 11/[address] HEMATOLOGY MPV 9.8 7.4 - 10.4 11/[address] CARDIAC Troponin-I 0.04 0.00 - 11/22 [facility] ENZYMES 0.40 [facility] CHEM PANEL Lactic Acid 1.7 0.5 - 2.2 11/[address] IMMUNOLOGY Coronavirus Not Detected Not 11/21 [place] (COVID-19) (11/22/19 11:05 AM) Detected /2019 [facility] CHEM PANEL Lactic Acid 2.6 0.5 - 2.2 11/21 [facility] URINE AND UA Color Veronique Yellow 11/21 [facility] STOOL *ABN* /2019 [facility] (11/22/19 7:20 AM) [place] URINE AND UA Turbidity Slight Clear 11/21 [facility] *ABN* /[address] [place] [address] (11/22/19 7:20 AM) [place] URINE AND UA Spec Grav 1.035 <=1.030 11/[address] URINE AND UA pH 5.0 5.0 - 8.0 11/[address] URINE AND UA Protein 30 mg/dL Negative 11/21 [facility] STOOL mg/dL /[address] [place] [address] URINE AND UA Ketones Negative Negative 11/21 [facility] mg/dL mg/dL /[address] [place] [address] URINE AND UA Bili Negative Negative 11/21 [facility] STOOL *NA* /2019 [facility] (11/22/19 7:20 AM) [place] URINE AND UA Blood Negative Negative 11/21 [facility] (11/22/19 7:20 AM) [facility] URINE AND UA 2.0 0.1 - 1.0 11/21 [facility] Urobilinogen /[address] [place] [address] URINE AND UA Nitrite Negative Negative 11/21 [facility] (11/22/19 7:20 AM) [facility] URINE AND UA Leuk Est Negative Negative 11/21 [facility] (11/22/19 7:20 AM) [facility] URINE AND UA WBC 1 0 - 5 11/21 [facility] /[address] [place] [address] URINE AND UA RBC 7 0 - 2 11/[address] URINE AND UA Mucus Few /LPF None Seen 11/21 [facility] STOOL /LPF /[address] [place] [address] URINE AND UA Hyal Cast 4 0 - 2 11/21 [facility] URINE AND UA Sq Epi None Seen 11/21 [facility] URINE AND UA Glucose 50mg/dl 11/21 [facility]2019 [facility] HEMATOLOGY PT 12.4 12.0 - 11/21 [facility] 14.7 [facility] HEMATOLOGY INR 0.92 0.85 - 11/21 [facility] 1.17 [facility] HEMATOLOGY PTT 25.1 22.9 - 11/21 [place] 35.8 [facility] HEMATOLOGY ACT (TEG) 89 86 - 118 11/21 [facility]2019 [facility] HEMATOLOGY [place] 0.3 11/21 [facility]2019 [facility] HEMATOLOGY R-time Rapid 0.4 0.4 - 0.7 11/21 [facility] HEMATOLOGY K-time Rapid 1.3 0.6 - 2.3 11/21 [facility]2019 [facility] HEMATOLOGY Angle Rapid 75 64 - 80 11/[address] HEMATOLOGY Max 64 52 - 71 11/21 [facility] HEMATOLOGY G-value 9.0 5.0 - 11.6 11/21 [facility] HEMATOLOGY Estimated % 0.0 0.0 - 7.5 11/[place] [facility] HEMATOLOGY RBC Morph Normal Normal 11/21 [facility] (11/22/19 6:40 AM) [facility] HEMATOLOGY Plt Morph Normal Normal 11/21 [facility] (11/22/19 6:40 AM) /2019 [facility] HEMATOLOGY Segs 77.5 45.0 - 11/21 [facility] 75.0 [facility] HEMATOLOGY Lymphocytes 14.2 20.0 - 11/21 [place] 40.0 [facility] HEMATOLOGY Monocytes 6.8 2.0 - 12.0 11/[address] HEMATOLOGY Eosinophils 0.2 0.0 - 4.0 11/[place] [facility] HEMATOLOGY Basophils 1.3 0.0 - 1.0 11/[address] HEMATOLOGY Neutrophils 16.9 1.5 - 8.1 11/21 [place] # /2019 [facility] HEMATOLOGY Lymphocytes 3.1 1.0 - 5.5 11/21 [place] # /2019 [facility] HEMATOLOGY Monocytes # 1.5 0.0 - 0.8 11/21 [facility] /[address] [place] [address] HEMATOLOGY Eosinophils 0.1 0.0 - 0.5 11/21 [facility] # [facility] HEMATOLOGY Basophils # 0.3 0.0 - 0.2 11/21 [facility] [address] HEMATOLOGY Large Plt Slight 11/[address] BLOOD BANK ABO/Rh O POS 11/21 [facility] RESULTS /[address] [place] [address] BLOOD BANK Antibody Negative 11/21 [facility] RESULTS Scrn (11/22/19 5:56 AM) [facility] CARDIAC Total CK 840 12 - 191 11/21 [facility] ENZYMES /[address] [place] [address] CARDIAC Troponin-I 0.05 0.00 - 11/21 [facility] ENZYMES 0.40 [facility] CHEM PANEL Total 5.8 6.4 - 8.4 11/21 [facility] Protein [address] CHEM PANEL Albumin Lvl 2.4 3.5 - 5.0 11/21 [facility] [address] CHEM PANEL ASPARTATE 355 0 - 37 11/21 [facility] TRANSAMINASE [address] CHEM PANEL Alk Phos 102 39 - 136 11/[address] CHEM PANEL Bili Total 1.2 0.2 - 1.3 11/[address] CHEM PANEL Bili Direct 0.3 0.0 - 0.3 11/[address] CHEM PANEL Bili 0.9 0.0 - 1.0 11/21 [facility] Indirect [address] CHEM PANEL Globulin 3.4 2.7 - 4.2 11/[address] CHEM PANEL A/G Ratio 0.7 0.7 - 1.6 11/[address] CHEM PANEL ALT 155 0 - 65 11/[address] HEMATOLOGY Segs 60.1 45.0 - 03/04 [place] 75.0 [facility] HEMATOLOGY Lymphocytes 32.3 20.0 - 10 [place] 40.0 [facility] HEMATOLOGY Monocytes 5.9 2.0 - 12.0 03/[address] HEMATOLOGY Eosinophils 0.7 0.0 - 4.0 03/[address] HEMATOLOGY Basophils 1.0 0.0 - 1.0 03/[address] HEMATOLOGY Neutrophils 4.3 1.5 - 8.1 03/04 [place] # /2019 [facility] HEMATOLOGY Lymphocytes 2.3 1.0 - 5.5 03/04 [place] # /2019 [facility] HEMATOLOGY Monocytes # 0.4 0.0 - 0.8 03/04 [place] /2018 [facility] HEMATOLOGY Basophils # 0.1 0.0 - 0.2 03/04 [facility] /2018 [facility] HEMATOLOGY Sed Rate 2 0 - 20 03/04 [facility] HEMATOLOGY WBC 7.2 3.7 - 10.4 03/04 [facility] HEMATOLOGY RBC 3.76 4.20 - 03/04 [place] 5.40 /2019 [facility] HEMATOLOGY Hgb 12.1 12.0 - 03/04 [place] 16.0 2019 [facility] HEMATOLOGY Hct 36.8 36.0 - 03/04 [facility] 48.0 2019 [facility] HEMATOLOGY MCV 97.9 80.0 - 03/04 [facility] 98.0 /2019 [facility] HEMATOLOGY MCH 32.1 27.0 - 03/04 [place] 31.0 /2019 [facility] HEMATOLOGY MCHC 32.8 32.0 - 03/04 [place] 36.0 2019 [facility] HEMATOLOGY RDW 16.7 11.5 - 03/04 [place] 14.5 2019 [facility] HEMATOLOGY Platelet 131 133 - 450 03/04 [facility] HEMATOLOGY MPV 8.9 7.4 - 10.4 03/04 [facility] IMMUNOLOGY C-REACTIVE <2.9 <=2.9 mg/L 03/04 [place] PR[place] [facility] BLOOD BANK ABO/Rh O POS 02/26 [facility] RESULTS /2018 [facility] BLOOD BANK Antibody Negative 02/26 [facility] RESULTS Scrn (02/26/19 7:49 AM) [facility] HEMATOLOGY Segs 67.8 45.0 - 02/25 [place] 75.0 /2019 [facility] HEMATOLOGY Lymphocytes 22.9 20.0 - 02/25 [place] 40.0 2019 [facility] HEMATOLOGY Monocytes 7.8 2.0 - 12.0 02/25 [facility] HEMATOLOGY Eosinophils 0.4 0.0 - 4.0 02/25 [place] [facility] HEMATOLOGY Basophils 1.1 0.0 - 1.0 02/25 [place] [facility] HEMATOLOGY Neutrophils 6.3 1.5 - 8.1 02/25 [place] # /2018 [facility] HEMATOLOGY Lymphocytes 2.1 1.0 - 5.5 02/25 [place] # /2018 [facility] HEMATOLOGY Monocytes # 0.7 0.0 - 0.8 02/25 [facility] HEMATOLOGY Basophils # 0.1 0.0 - 0.2 02/25 [facility] HEMATOLOGY Macrocyte 1+ None Seen 02/25 [facility] *ABN* /2018 [facility] (02/25/19 4:11 AM) [place] HEMATOLOGY WBC 9.2 3.7 - 10.4 02/25 [facility] HEMATOLOGY RBC 3.50 4.20 - 02/25 [facility] 5.40 [facility] HEMATOLOGY Hgb 11.5 12.0 - 02/25 [facility] 16.0 [facility] HEMATOLOGY Hct 35.5 36.0 - 02/25 [facility] 48.0 [facility] HEMATOLOGY MCV 101.5 80.0 - 02/25 [facility] 98.0 [facility] HEMATOLOGY MCH 32.7 27.0 - 02/25 [facility] 31.0 [facility] HEMATOLOGY MCHC 32.2 32.0 - 02/25 [facility] 36.0 [facility] HEMATOLOGY RDW 17.4 11.5 - 02/25 [facility] 14.5 [facility] HEMATOLOGY Platelet 120 133 - 450 02/25 [facility] HEMATOLOGY MPV 9.2 7.4 - 10.4 02/25 [facility] CHEM PANEL Glucose Lvl 143 70 - 99 02/22 [facility] CHEM PANEL BUN 20 7 - 22 02/22 [facility] CHEM PANEL Creatinine 0.89 0.50 - 02/22 [facility] Lvl 1.40 [facility] CHEM PANEL Sodium Lvl 143 135 - 145 02/22 [facility]2018 [facility] CHEM PANEL Potassium 4.3 3.5 - 5.1 02/[address] [facility] CHEM PANEL Chloride Lvl 107 95 - 109 02/22 [facility] CHEM PANEL CO2 27 24 - 32 02/22 [facility] CHEM PANEL AGAP 13.3 10.0 - 02/22 [facility] 20.0 [facility] CHEM PANEL Calcium Lvl 8.9 8.5 - 10.5 02/22 [facility] CHEM PANEL eGFR 65 02/22 Result Comment: [...] Segs 63.7 45.0 - 02/22 [place] 75.0 [facility] HEMATOLOGY Lymphocytes 26.8 20.0 - 02/22 [place] 40.0 [facility] HEMATOLOGY Monocytes 8.0 2.0 - 12.0 02/22 [facility] HEMATOLOGY Eosinophils 0.4 0.0 - 4.0 02/22 [facility] HEMATOLOGY Basophils 1.1 0.0 - 1.0 02/22 [facility] HEMATOLOGY Neutrophils 6.4 1.5 - 8.1 02/22 [facility] # [facility] HEMATOLOGY Lymphocytes 2.7 1.0 - 5.5 02/22 [facility] # [facility] HEMATOLOGY Monocytes # 0.8 0.0 - 0.8 02/22 [facility] HEMATOLOGY Basophils # 0.1 0.0 - 0.2 02/22 [facility] HEMATOLOGY WBC 10.1 3.7 - 10.4 02/22 [facility] HEMATOLOGY RBC 3.93 4.20 - 02/22 [place] 5.40 [facility] HEMATOLOGY Hgb 12.7 12.0 - 02/22 [place] 16.0 [facility] HEMATOLOGY Hct 38.8 36.0 - 02/22 [facility] [place] 48.0 /2019 [facility] HEMATOLOGY MCV 98.9 80.0 - 02/22 98.0 [facility] HEMATOLOGY MCH 32.4 27.0 - 02/22 31.0 [facility] HEMATOLOGY MCHC 32.7 32.0 - 02/22 36.0 [facility] HEMATOLOGY RDW 17.3 11.5 - 02/22 14.5 [facility] HEMATOLOGY Platelet 189 133 - 450 02/22 [facility] HEMATOLOGY MPV 9.8 7.4 - 10.4 02/22 [facility] CHEM PANEL Glucose Lvl 95 70 - 99 02/21 [facility] CHEM PANEL BUN 18 7 - 22 02/21 [facility] CHEM PANEL Creatinine 0.77 0.50 - 02/21 [facility] Lvl 1.40 [facility] CHEM PANEL Sodium Lvl 143 135 - 145 02/21 [facility] CHEM PANEL Potassium 4.1 3.5 - 5.1 02/[address] [facility] Comment: [facility] Slightly Hemolyzed. CHEM PANEL Chloride Lvl 109 95 - 109 02/21 [facility] CHEM PANEL CO2 26 24 - 32 02/21 [facility] CHEM PANEL Calcium Lvl 8.5 8.5 - 10.5 02/21 [place] [facility] CHEM PANEL eGFR 78 02/21 Result Comment: The [facility] eGFR is Center calculated using the CKD-EPI [...] CHEM PANEL AGAP 12.1 10.0 - 02/21 [facility] 20.0 [facility] CHEM PANEL Magnesium 2.0 1.8 - 2.4 02/[address] CHEM PANEL Phosphorus 3.5 2.5 - 4.5 02/[address] ELECTROLYTE AGAP 11.1 10.0 - 02/19 [facility] 20.0 [facility] ELECTROLYTE Glucose Lvl 73 70 - 99 02/[address] ELECTROLYTE BUN 21 7 - 22 02/[address] ELECTROLYTE Creatinine 0.66 0.50 - 02/19 [facility] Lvl 1.40 [facility] ELECTROLYTE Sodium Lvl 140 135 - 145 02/19 [facility]2018 [facility] ELECTROLYTE Potassium 4.1 3.5 - 5.1 02/[address] ELECTROLYTE Chloride Lvl 107 95 - 109 02/19 [facility]2018 [facility] ELECTROLYTE CO2 26 24 - 32 02/[address] ELECTROLYTE Calcium Lvl 8.6 8.5 - 10.5 02/19 [place] [facility]2018 [facility] ELECTROLYTE Albumin Lvl 2.1 3.5 - 5.0 02/19 [facility]2018 [facility] ELECTROLYTE Phosphorus 3.0 2.5 - 4.5 02/[address] ELECTROLYTE eGFR 88 02/19 [facility] Comment: The Medical eGFR is Center calculated [...] HEMATOLOGY Eosinophils 0.1 0.0 - 0.5 02/19 [facility] CHEM PANEL Magnesium 2.4 1.8 - 2.4 02/[address] CHEM PANEL Phosphorus 5.0 2.5 - 4.5 02/[address] HEMATOLOGY Bands 0.0 0.0 - 11.0 02/[address] HEMATOLOGY Myelocytes 2.0 <=0.0 % 02/[address] HEMATOLOGY Atypical 0.0 <=0.0 % 02/[address] HEMATOLOGY NRBC 1 02/[address] HEMATOLOGY Plt Morph Normal Normal 02/18 [facility] (02/18/19 3:45 AM) 2018 [facility] HEMATOLOGY Macrocyte 1+ None Seen 02/18 [facility] (02/18/19 3:45 AM) [place] HEMATOLOGY Polychrom Slight 02/[address] TOXICOLOGY Vanco Tr 18.8 02/[address] TOXICOLOGY Vanco Tr TND 2200 02/[address] HEMATOLOGY Bands 1.0 0.0 - 11.0 02/[address] HEMATOLOGY Metamyelocyt 2.0 0.0 - 1.0 02/[address] HEMATOLOGY Myelocytes 3.0 <=0.0 % 02/[address] HEMATOLOGY Atypical 0.0 <=0.0 % 02/[address] HEMATOLOGY Eosinophils 0.2 0.0 - 0.5 02/15 [facility] [address] [place] [address] HEMATOLOGY Bands 0.0 0.0 - 11.0 02/[address] HEMATOLOGY Metamyelocyt 1.0 0.0 - 1.0 02/[address] HEMATOLOGY Myelocytes 1.0 <=0.0 % 02/[address] HEMATOLOGY Atypical 0.0 <=0.0 % 02/[address] HEMATOLOGY Anisocyte 2+ None Seen 02/15 [facility] (02/15/19 11:09 AM) Cente r HEMATOLOGY Macrocyte 1+ None Seen 02/15 [facility] *ABN* /2019 [facility] (02/15/19 11:09 AM) Cente r HEMATOLOGY Eosinophils 0.4 0.0 - 0.5 02/13 [place] # /2018 [facility] HEMATOLOGY Anisocyte 1+ None Seen 02/13 [facility] *ABN* /2018 Medical (02/13/19 5:40 AM) Center HEMATOLOGY Polychrom Slight 02/13 [facility] HEMATOLOGY Large Plt Slight 02/13 [facility] IMMUNOLOGY C-REACTIVE 96.6 <=2.9 mg/L 02/12 [facility] PROTEIN [facility] CHEM PANEL Lactic Acid 1.6 0.5 - 2.2 02/12 [facility] Lvl [facility] CHEM PANEL Lactic Acid 2.4 0.5 - 2.2 02/12 [facility] Lvl [facility] HEMATOLOGY Polychrom Slight 02/12 [facility] HEMATOLOGY Large Plt Slight 02/12 [facility] TOXICOLOGY Vanco Lvl 12.1 02/12 [facility] [address] [place] [address] TRIMETHOPRI Gram Stain Gram Stain 02/11 [facility] as M+SULFAMETH Report Performed Medical OXAZOLE:DESIRAE By: Center C:PT:ISOLAT [facility] E:ORDQN:MARIA TERESA [facility] TRIMETHOPRI Culture: Rare Proteus mirabilis 02/11 [facility] M+SULFAMETH Wound/Absces Many Enterococcus Species /2018 Medical OXAZOLE:DESIRAE s w/Gram Moderate Staphylococcus aureus Center C:PT:ISOLAT Stain Upon Supplemental Testing, This Isolate Was Found To Be E:ORDQN:MARIA TERESA 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 TRIMETHOPRI Staphylococc Staphyloco 02/11 [facility] exas M+SULFAMETH us aureus ccus /2018 Medical OXAZOLE:DESIRAE aureus Center C:PT:ISOLAT E:ORDQN:MARIA TERESA TRIMETHOPRI Enterococcus Enterococc 02/11 [facility] exas M+SULFAMETH Species us Species /2019 Medical OXAZOLE:DESIRAE Center C:PT:ISOLAT E:ORDQN:MARIA TERESA TRIMETHOPRI Proteus Proteus 02/11 [facility]+SULFAMETH mirabilis mirabilis /2019 Medical OXAZOLE:DESIRAE Center C:PT:ISOLAT E:ORDQN:MARIA TERESA TOXICOLOGY Vanco Lvl 14.3 02/10 [facility] CHEM PANEL Lactic Acid 1.6 0.5 - 2.2 02/10 [place] [facility] CHEM PANEL Magnesium 2.1 1.8 - 2.4 02/[address] [facility] HEMATOLOGY RBC Morph Normal Normal 02/09 [facility] (02/09/19 9:04 AM) [facility] HEMATOLOGY Plt Morph Normal Normal 02/09 [facility] (02/09/19 9:04 AM) [facility] PARATHYROID Ca Ion WB 1.06 1.05 - 02/09 [place] PROFILE 1. [facility] PARATHYROID Ca Norm WB 1.04 1.05 - 02/09 [facility] PROFILE . [facility] URINE AND UA Color Yellow Yellow 02/08 [facility] *NA* /2018 [facility] (02/08/19 3:55 AM) [place] URINE AND UA Turbidity Marked Clear 02/08 [facility] *ABN* [facility] (02/08/19 3:55 AM) [place] URINE AND UA Spec Grav 1.022 <=1.030 02/08 [facility] /2018 [facility] URINE AND UA pH 5.0 5.0 - 8.0 02/08 [facility] /2018 [facility] URINE AND UA Protein 100 mg/dL Negative 02/08 [facility] mg/dL [facility] URINE AND UA Glucose 500 mg/dL Negative 02/08 [facility] mg/dL [facility] URINE AND UA Ketones Negative Negative 02/08 [facility] mg/dL mg/dL [facility] URINE AND UA Bili Negative Negative 02/08 [facility] *NA* [facility] (02/08/19 3:55 AM) [place] URINE AND UA Blood Negative Negative 02/08 [facility] (02/08/19 3:55 AM) [facility] URINE AND UA <1.0 0.1 - 1.0 02/08 [facility] Urobilinogen /2018 [facility] URINE AND UA Nitrite Negative Negative 02/08 [facility] (02/08/19 3:55 AM) [facility] URINE AND UA Leuk Est Negative Negative 02/08 [facility] (02/08/19 3:55 AM) [facility] URINE AND UA Sq Epi Occasional Few /LPF 02/08 [facility] STOOL /LPF /2018 [facility] URINE AND UA WBC 13 0 - 5 02/08 [facility] STOOL /2018 [facility] URINE AND UA RBC 4 0 - 2 02/08 [facility] STOOL [facility] URINE AND UA Bacteria Occasional None Seen 02/08 [place] /HPF /HPF /2018 [facility] URINE AND UA Mucus Few /LPF None Seen 02/08 [facility] STOOL /LPF [address] [place] [address] URINE AND UA Hyal Cast 5 0 - 2 02/08 [facility] STOOL /2018 [facility] URINE AND UA Gran Cast 3-5 /LPF None Seen 02/08 [place] STOOL /LPF [facility] URINE CHEM U Sodium 30 02/08 [facility] URINE CHEM U Creatinine 135.00 02/08 [facility] [address] [place] [address] Culture: 10,000 - 02/08 [facility] Urine 50,000 [facility] CFU/mL Center Skin Era CARDIAC Troponin-I <0.02 0.00 - 02/08 [facility] ENZYMES 0.40 [facility] HEMATOLOGY Sed Rate 95 0 - 20 02/08 [facility] /2018 [facility] IMMUNOLOGY C-REACTIVE 81.9 <=2.9 mg/L 02/08 [place] PROTEIN [facility] PARATHYROID Ca Ion WB 1.19 1.05 - 02/08 [place] PROFILE 1. [facility] PARATHYROID Ca Norm WB 1.17 1. - 02/08 [facility] PROFILE . [facility] CHEM PANEL Osmolality 314 280 - 300 02/[address] URINE AND UA Ketones Trace Negative 02/08 [facility] STOOL mg/dL mg/dL [facility] PARATHYROID Ca Ion WB 1.08 1.05 - 02/07 [place] PROFILE . [facility] PARATHYROID Ca Norm WB 1.09 1.05 - 02/07 [facility] PROFILE . [facility] ANEMIA Vitamin B12 538 254 - 1320 02/06 [facility] STUDY Lvl /2018 [facility] ANEMIA Folate Lvl 16.9 >=3.0 02/06 [facility] STUDY ng/mL [facility] CHEM PANEL Ammonia 13.0 <=45.0 02/06 [facility] uMol/L /2018 [facility] CHEM PANEL VITAMIN B1 172.6 66.5 - 02/06 Result [facility] (THIAMINE) 200.0 Comment: This Medical WHOLE BLOOD test was Center developed and its performance characteristi cs
determ ined by [facility]. It has not been cleared or
approv ed by the Food and Drug Administratio n.
Perfor med At: BN [facility]
[address], [place] [id number]<br/ >Kosta Tucker MD Ph:[phone] IMMUNOLOGY Homocyst Tot 17.3 0.0 - 15.0 02/06 [place] [facility] IMMUNOLOGY MMA Qnt 179 0 - 378 02/[address] SPECIAL Hgb A1C 8.5 <=5.6 % 02/06 [facility] CHEMISTRY /2018 [facility] CARDIAC Troponin-I 0.03 0.00 - 02/05 [facility] ENZYMES 0.40 [facility] CARDIAC Total CK 200 12 - 191 02/05 [facility] ENZYMES [address] CARDIAC CK MB 1.5 0.5 - 3.6 02/05 [facility] ENZYMES [address] CARDIAC CK MB Index 0.8 0.0 - 2.5 02/05 [facility] ENZYMES [address] CHEM PANEL B/C Ratio 16 6 - 25 02/[address] CHEM PANEL Total 6.4 6.4 - 8.4 02/05 [facility] Protein [facility] CHEM PANEL Albumin Lvl 2.2 3.5 - 5.0 02/05 [place] [facility] CHEM PANEL Globulin 4.2 2.7 - 4.2 02/[address] CHEM PANEL A/G Ratio 0.5 0.7 - 1.6 02/[address] CHEM PANEL AST 184 0 - 37 02/[address] CHEM PANEL Alk Phos 330 39 - 136 02/[address] CHEM PANEL Bili Total 0.6 0.2 - 1.3 02/[address] CHEM PANEL ALT 103 0 - 65 02/[address] CHEM PANEL Vitamin D, 6.5 30.0 - 02/05 [facility] 25-OH, Total 100.0 [facility] URINE AND UA Color Dark Yellow Yellow 02/05 [facility] STOOL *NA* /2018 [facility] (02/05/19 2:43 PM) [place] URINE AND UA Turbidity Marked Clear 02/05 [facility] STOOL *ABN* /2018 [facility] (02/05/19 2:43 PM) Center URINE AND UA Spec Grav 1.022 <=1.030 02/05 [facility] STOOL /2018 [facility] Center URINE AND UA pH 6.0 5.0 - 8.0 02/05 [facility] STOOL /2018 [facility] Center URINE AND UA Protein 100 mg/dL Negative 02/05 [facility] STOOL mg/dL /2018 [facility] URINE AND UA Glucose 500 mg/dL Negative 02/05 [facility] STOOL mg/dL /2018 [facility] Center URINE AND UA Ketones Trace Negative 02/05 [facility] STOOL mg/dL mg/dL /2018 [facility] URINE AND UA Bili Negative Negative 02/05 [facility] STOOL *NA* /2018 [facility] (02/05/19 2:43 PM) Center URINE AND UA Blood Negative Negative 02/05 [facility] (02/05/19 2:43 PM) /2018 [facility] URINE AND UA 2.0 0.1 - 1.0 02/05 [facility] Urobilinogen /2018 [facility] URINE AND UA Nitrite Negative Negative 02/05 [facility] STOOL (02/05/19 2:43 PM) /2018 [facility] URINE AND UA Leuk Est Negative Negative 02/05 [facility] (02/05/19 2:43 PM) /2018 [facility] URINE AND UA Sq Epi Occasional Few /LPF 02/05 [facility] STOOL /LPF [facility] URINE AND UA WBC 4 0 - 5 02/05 [facility] STOOL /2018 [facility] URINE AND UA RBC 2 0 - 2 02/05 [facility] /2018 [facility] URINE AND UA Bacteria Few /HPF None Seen 02/05 [place] /HPF /2018 [facility] Center URINE AND UA Mucus Few /LPF None Seen 02/05 [place] STOOL /LPF /2019 [facility] URINE AND UA Uric Ac Many /HPF None Seen 02/05 [place] ST[place] /HPF /2018 [facility] [facility] Neutrophils 12.0 1.5 - 8.1 [place] /2019 [facility] HEMATOLOGY Lymphocytes 2.2 1.0 - 5.5 01[place] /2019 [facility] HEMATOLOGY Monocytes # 0.8 0.0 - 0.8 01[place]2019 [facility] HEMATOLOGY Segs 78.0 45.0 - 01/09 [place] 75.0 /2018 [facility] HEMATOLOGY Bands 0.0 0.0 - 11.0 01/09 [facility] HEMATOLOGY Lymphocytes 14.0 20.0 - 01/09 [place] 40.0 [facility] HEMATOLOGY Monocytes 5.0 2.0 - 12.0 01/09 [facility]2018 [facility] HEMATOLOGY Metamyelocyt 1.0 0.0 - 1.0 01/09 [place] [facility] HEMATOLOGY Myelocytes 2.0 <=0.0 % 01/09 [facility] HEMATOLOGY Atypical 0.0 <=0.0 % 01/09 [facility] Lymphs [facility] HEMATOLOGY NRBC 3 01/09 [facility] HEMATOLOGY Anisocyte 1+ None [facility]en [facility]/09 [facility] (01/09/19 5:01 AM) [place] HEMATOLOGY Macrocyte 1+ None Seen 01/09 [facility]* [facility] (01/09/19 5:01 AM) [place] HEMATOLOGY Polychrom Moderate None Seen 01/09 [facility]* [facility] (01/09/19 5:01 AM) [place] HEMATOLOGY Large Plt slight 01/09 [facility] HEMATOLOGY WBC 15.4 3.7 - 10.4 01/09 [facility] HEMATOLOGY RBC 2.79 4.20 - 01/09 [facility] 5.40 [facility] HEMATOLOGY Hgb 9.6 12.0 - 01/09 [facility] 16.0 [facility] HEMATOLOGY Hct 29.3 36.0 - 01/09 [facility] 48.0 [facility] HEMATOLOGY MCV 104.8 80.0 - 01/09 [facility] 98.0 [facility] HEMATOLOGY MCH 34.5 27.0 - 01/09 [place] 31.0 2019 [facility] HEMATOLOGY MCHC 32.9 32.0 - 01/09 [place] 36.0 [facility] HEMATOLOGY RDW 22.7 11.5 - 01/09 [facility] 14.5 [facility] HEMATOLOGY Platelet 119 133 - 450 01/09 [facility]2018 [facility] HEMATOLOGY MPV 9.8 7.4 - 10.4 01/[address] CHEM PANEL Glucose Lvl 79 70 - 99 01/[address] CHEM PANEL BUN 27 7 - 22 01/[address] CHEM PANEL Creatinine 0.77 0.50 - 01/07 [facility] Lvl 1.40 /2018 [facility] CHEM PANEL Sodium Lvl 142 135 - 145 01/07 [facility] CHEM PANEL Potassium 4.2 3.5 - 5.1 01/[address] [facility] CHEM PANEL Chloride Lvl 106 95 - 109 01/07 [facility] CHEM PANEL CO2 28 24 - 32 01/07 [facility] CHEM PANEL AGAP 12.2 10.0 - 08 [place] 20.0 [facility] CHEM PANEL Calcium Lvl 8.6 8.5 - 10.5 01/07 [facility] CHEM PANEL eGFR 78 01/07 [facility] Comment: The Medical eGFR is Center [...] PANEL Magnesium 2.1 1.8 - 2.4 01/07 [facility] CHEM PANEL Phosphorus 3.7 2.5 - 4.5 01/07 [facility] HEMATOLOGY Neutrophils 14.2 1.5 - 8.1 01/07 [place] [facility] HEMATOLOGY Lymphocytes 6.1 1.0 - 5.5 01/07 [place] # /2018 [facility] HEMATOLOGY Monocytes # 0.4 0.0 - 0.8 01/07 [facility] HEMATOLOGY Basophils # 0.2 0.0 - 0.2 01/07 [facility] HEMATOLOGY Segs 67.0 45.0 - 01/07 [place] 75.0 [facility] HEMATOLOGY Bands 0.0 0.0 - 11.0 01/07 [facility] HEMATOLOGY Lymphocytes 29.0 20.0 - 01/07 [facility] 40.0 [facility] HEMATOLOGY Monocytes 2.0 2.0 - 12.0 01/07 [facility] HEMATOLOGY Basophils 1.0 0.0 - 1.0 01/07 [facility] [address] [place] [address] HEMATOLOGY Myelocytes 1.0 <=0.0 % 01/07 [facility] HEMATOLOGY Atypical 0.0 <=0.0 % 01/07 [facility] Lymphs [facility] HEMATOLOGY NRBC 2 01/07 [facility] HEMATOLOGY Plt Morph Normal Normal 01/07 [facility] (01/07/19 5:31 AM) /2018 [facility] HEMATOLOGY Anisocyte 1+ None Seen 01/07 [facility] (01/07/19 5:31 AM) [place] HEMATOLOGY Macrocyte 1+ None Seen 01/07 [facility] (01/07/19 5:31 AM) [place] HEMATOLOGY Polychrom Moderate None Seen 01/07 [facility] (01/07/19 5:31 AM) [place] HEMATOLOGY WBC 21.2 3.7 - 10.4 01/07 [facility] HEMATOLOGY RBC 2.83 4.20 - 01/07 [facility] 5.40 [facility] HEMATOLOGY Hgb 9.6 12.0 - 01/07 [facility] 16.0 [facility] HEMATOLOGY Hct 29.6 36.0 - 01/07 [facility] 48.0 [facility] HEMATOLOGY MCV 104.5 80.0 - 01/07 [facility] 98.0 [facility] HEMATOLOGY MCH 33.9 27.0 - 01/07 [facility] 31.0 2019 [facility] HEMATOLOGY MCHC 32.4 32.0 - 01/07 [facility] 36.0 2019 [facility] HEMATOLOGY RDW 19.9 11.5 - 01/07 [facility] 14.5 [facility] HEMATOLOGY Platelet 139 133 - 450 01/07 [facility] HEMATOLOGY MPV 10.6 7.4 - 10.4 01/[address] CHEM PANEL Glucose Lvl 130 70 - 99 01/[address] CHEM PANEL BUN 27 7 - 22 01/06 [facility]2018 [facility] CHEM PANEL Creatinine 1.34 0.50 - 01/06 [place] Lvl 1.40 [facility] CHEM PANEL Sodium Lvl 145 135 - 145 01/06 [facility] CHEM PANEL Potassium 4.0 3.5 - 5.1 01/06 [facility] Lvl /2018 [facility] CHEM PANEL Chloride Lvl 106 95 - 109 01/06 [facility] CHEM PANEL CO2 27 24 - 32 01/06 [facility] CHEM PANEL Calcium Lvl 8.3 8.5 - 10.5 01/06 as [facility] CHEM PANEL eGFR 40 01/06 [facility] Comment: The Medical eGFR is Center [...] AGAP 16.0 10.0 - 08 [place] 20.0 [facility] HEMATOLOGY Segs 84.9 45.0 - 08 [facility] 75.0 [facility] HEMATOLOGY Lymphocytes 11.4 20.0 - 08 [place] 40.0 [facility] HEMATOLOGY Monocytes 2.9 2.0 - 12.0 01/06 [facility] HEMATOLOGY Eosinophils 0.2 0.0 - 4.0 [place] [facility] HEMATOLOGY Basophils 0.6 0.0 - 1.0 01/06 [facility] HEMATOLOGY Neutrophils 12.0 1.5 - 8.1 01/06 [place] # /2018 [facility] HEMATOLOGY Lymphocytes 1.6 1.0 - 5.5 01/06 [facility] # /2019 [facility] HEMATOLOGY Monocytes # 0.4 0.0 - 0.8 01/06 [facility] s /2019 [facility] HEMATOLOGY Basophils # 0.1 0.0 - 0.2 01/06 [facility] HEMATOLOGY Macrocyte 1+ None Seen 01/06 [facility] *ABN* /2018 Medical (01/06/19 2:41 PM) [place] HEMATOLOGY Polychrom slight 01/06 [facility] /2018 [facility] HEMATOLOGY WBC 14.1 3.7 - 10.4 01/06 [facility] /2019 [facility] HEMATOLOGY RBC 2.86 4.20 - 01/06 [facility] 5.40 /2019 [facility] HEMATOLOGY Hgb 9.7 12.0 - 01/06 [facility] 16.0 2019 [facility] HEMATOLOGY Hct 29.5 36.0 - 01/06 [facility] 48.0 /2019 [facility] HEMATOLOGY MCV 103.3 80.0 - 01/06 [facility] 98.0 /2019 [facility] HEMATOLOGY MCH 33.8 27.0 - 01/06 [facility] 31.0 /2019 [facility] HEMATOLOGY MCHC 32.7 32.0 - 01/06 [facility] 36.0 /2019 [facility] HEMATOLOGY RDW 20.1 11.5 - 01/06 [facility] 14.5 [facility] HEMATOLOGY Platelet 119 133 - 450 01/06 [facility] /2018 [facility] HEMATOLOGY MPV 10.2 7.4 - 10.4 01/[address] CARDIAC BNP 98 <=100 01/04 [facility] ENZYMES pg/mL [facility] ELECTROLYTE AGAP 12.0 10.0 - 08 [facility] 20.0 [facility] ELECTROLYTE Glucose Lvl 83 70 - 99 01/04 [facility] S /2019 [facility] ELECTROLYTE BUN 23 7 - 22 01/04 [facility] S /2019 [facility] ELECTROLYTE Creatinine 0.88 0.50 - 08 [facility] Lvl 1.40 [facility] ELECTROLYTE Sodium Lvl 140 135 - 145 01/04 [facility] S /2018 [facility] ELECTROLYTE Potassium 4.0 3.5 - 5.1 01/04 [facility]2019 [facility] ELECTROLYTE Chloride Lvl 107 95 - 109 01/04 [facility] S /2019 [facility] ELECTROLYTE CO2 25 24 - 32 08/ [facility] /2019 [facility] ELECTROLYTE Calcium Lvl 8.5 8.5 - 10.5 01/04 [place] [facility] ELECTROLYTE eGFR 66 01/04 Result [facility] Comment: The Medical eGFR is Center [...] HEMATOLOGY Eosinophils 0.2 0.0 - 0.5 01/04 [facility] # [facility] HEMATOLOGY Bands 3.0 0.0 - 11.0 01/[address] HEMATOLOGY Eosinophils 1.0 0.0 - 4.0 01/04 [facility] [address] [place] [address] HEMATOLOGY Myelocytes 1.0 <=0.0 % 01/[address] HEMATOLOGY Atypical 0.0 <=0.0 % 01/04 [facility] Lymphs [address] [place] [address] HEMATOLOGY NRBC 9 01/[address] HEMATOLOGY Plt Morph Normal Normal 01/04 [facility] (01/04/19 12:50 PM) [facility] HEMATOLOGY Anisocyte 1+ None Seen 01/04 [facility] *ABN* [facility] (01/04/19 12:50 PM) [place] HEMATOLOGY Eosinophils 0.1 0.0 - 4.0 01/01 [facility] [address] [place] [address] HEMATOLOGY Basophils 0.7 0.0 - 1.0 01/[address] HEMATOLOGY Basophils # 0.2 0.0 - 0.2 01/[address] PARATHYROID Ca Ion WB 1.08 1.05 - 01/01 [place] PROFILE 1. [facility] PARATHYROID Ca Norm WB 1.04 1.05 - 01/01 [facility] PROFILE 06.25 [facility] HEMATOLOGY Metamyelocyt 3.0 0.0 - 1.0 12/31 [place] [facility] CHEM PANEL Magnesium 2.1 1.8 - 2.4 12/30 [facility] CHEM PANEL Phosphorus 2.7 2.5 - 4.5 12/[address] HEMATOLOGY Fibrinogen 463 230 - 510 12/30 [facility] HEMATOLOGY Eosinophils 0.1 0.0 - 0.5 12/30 [place] # [facility] PARATHYROID Ca Ion WB 1.08 1.05 - 12/30 [facility] PROFILE . [facility] PARATHYROID Ca Norm WB 1.10 1.05 - 12/30 [facility] 06.25 [facility] CARDIAC Troponin-I 0.09 0.00 - 12/29 [facility] ENZYMES 0. [facility] CHEM PANEL Magnesium 2.0 1.8 - 2.4 12/29 [facility] CHEM PANEL Phosphorus 2.4 2.5 - 4.5 12/29 [facility] HEMATOLOGY Plt Morph Normal Normal 12/29 [facility] (12/29/18 12:04 AM) [facility] HEMATOLOGY INR 1.02 0.85 - 12/29 [facility] 06.17 [facility] HEMATOLOGY PT 13.2 12.0 - 12/29 [facility] 14.7 [facility] HEMATOLOGY PTT 31.0 22.9 - 12/29 [place] 35.8 [facility] HEMATOLOGY Fibrinogen 424 230 - 510 12/[address] [facility] PARATHYROID Ca Ion WB 1.10 1.05 - 12/29 [facility] PROFILE . [facility] PARATHYROID Ca Norm WB 1.11 1.05 - 12/29 [facility] . [facility] CARDIAC Troponin-I 0.11 0.00 - 12/28 [place] ENZYMES 0. [facility] CHEM PANEL Total 4.7 6.4 - 8.4 12/28 [facility] Protein [facility] CHEM PANEL Albumin Lvl 2.8 3.5 - 5.0 12/28 [place] [facility] CHEM PANEL ALT 36 0 - 65 12/28 [facility] CHEM PANEL AST 18 0 - 37 12/28 [facility] CHEM PANEL Alk Phos 73 39 - 136 12/[address] CHEM PANEL Bili Total 0.7 0.2 - 1.3 12/28 [facility]2018 [facility] CHEM PANEL Bili Direct 0.2 0.0 - 0.3 12/28 [facility] CHEM PANEL Bili 0.5 0.0 - 1.0 12/28 [facility] CHEM PANEL Globulin 1.9 2.7 - 4.2 12/28 [facility] CHEM PANEL A/G Ratio 1.5 0.7 - 1.6 12/28 [facility] HEMATOLOGY Metamyelocyt 1.0 0.0 - 1.0 12/28 [facility] as es [facility] HEMATOLOGY INR 1.13 0.85 - 12/28 [facility] 1.17 [facility] HEMATOLOGY PT 14.3 12.0 - 12/28 [facility] 14.7 [facility] HEMATOLOGY PTT 35.5 22.9 - 12/28 [place] 35.8 [facility] SPECIAL Hgb A1C 11.1 <=5.6 % 12/28 [facility] CHEMISTRY [facility] URINE AND Occult Bld Negative Negative 12/27 [facility] STOOL Stl (12/27/18 6:12 AM) /2018 [facility] CARDIAC Troponin-I 0.06 0.00 - 12/27 [facility] ENZYMES 0.40 [facility] CHEM PANEL Total 4.7 6.4 - 8.4 12/27 [facility] Protein [facility] CHEM PANEL Albumin Lvl 3.5 3.5 - 5.0 12/27 [facility] CHEM PANEL ALT 30 0 - 65 12/27 [facility] [address] [place] [address] CHEM PANEL AST 11 0 - 37 12/[address] CHEM PANEL Alk Phos 55 39 - 136 12/[address] CHEM PANEL Bili Total 0.5 0.2 - 1.3 12/[address] CHEM PANEL Bili Direct 0.1 0.0 - 0.3 12/27 [facility] [address] [place] [address] CHEM PANEL Bili 0.4 0.0 - 1.0 12/27 [facility] Indirect [address] [place] [address] CHEM PANEL Globulin 1.2 2.7 - 4.2 12/27 [facility] CHEM PANEL A/G Ratio 2.9 0.7 - 1.6 12/27 [facility] HEMATOLOGY PT 15.8 12.0 - 12/27 [place] 14.7 [facility] HEMATOLOGY INR 1.29 0.85 - 12/27 [place] 1.17 [facility] HEMATOLOGY PTT 37.6 22.9 - 12/27 [place] 35.8 [facility] HEMATOLOGY Fibrinogen 241 230 - 510 12/27 [place] Lvl /2018 [facility] CHEM PANEL Total 5.1 6.4 - 8.4 12/26 [facility] Protein [facility] CHEM PANEL Albumin Lvl 3.1 3.5 - 5.0 12/26 [facility] CHEM PANEL Globulin 2.0 2.7 - 4.2 12/26 [facility] CHEM PANEL A/G Ratio 1.6 0.7 - 1.6 12/[address] CHEM PANEL ALT 51 0 - 65 12/26 [facility] CHEM PANEL AST 16 0 - 37 12/26 [facility] CHEM PANEL Alk Phos 88 39 - 136 12/[address] CHEM PANEL Bili Total 0.4 0.2 - 1.3 12/26 [facility] CHEM PANEL Bili Direct 0.2 0.0 - 0.3 12/26 [facility] CHEM PANEL Bili 0.2 0.0 - 1.0 12/26 [facility] Indirect [facility] URINE AND UA Color Light Yellow Yellow 12/25 [facility] STOOL *NA* /2018 [facility] (12/25/18 2:16 PM) [place] URINE AND UA Turbidity Slight Clear 12/25 [facility] STOOL *ABN* /2018 [facility] (12/25/18 2:16 PM) [place] URINE AND UA Spec Grav 1.013 <=1.030 12/25 [facility] STOOL [facility] URINE AND UA pH 5.0 5.0 - 8.0 12/25 [facility] STOOL [facility] URINE AND UA Protein Negative Negative 12/25 [facility] STOOL mg/dL mg/dL [facility] URINE AND UA Glucose 500 mg/dL Negative 12/25 [facility] STOOL mg/dL /2018 [facility] URINE AND UA Ketones Trace Negative 12/25 [facility] STOOL mg/dL mg/dL /2018 [facility] URINE AND UA Bili Negative Negative 12/25 [facility] STOOL *NA* Medical (12/25/18 2:16 PM) Center URINE AND UA Blood Negative Negative 12/25 [facility] (12/25/18 2:16 PM) [facility] URINE AND UA <1.0 0.1 - 1.0 12/25 [facility] Urobilinogen /2018 [facility] URINE AND UA Nitrite Negative Negative 12/25 [facility] (12/25/18 2:16 PM) [facility] URINE AND UA Leuk Est Negative Negative 12/25 [facility] (12/25/18 2:16 PM) /2018 [facility] URINE AND UA WBC 4 0 - 5 12/25 [facility] /2018 [facility] URINE AND UA RBC 1 0 - 2 12/25 [facility] /2018 [facility] URINE AND UA Sq Epi None Seen 12/25 [facility] /2018 [facility] CHEM PANEL Lactic Acid 1.8 0.5 - 2.2 12/25 [facility] HEMATOLOGY Thrombin 17.7 15.0 - 12/25 [facility] Time 21.2 [facility] HEMATOLOGY D-Dimer 2.84 12/25 [facility] /2018 [facility] BACTERIAL - MRSA by PCR Negative 12/25 [facility] (12/25/18 12:22 AM) /2018 [facility] CHEM PANEL Lactic Acid 2.3 0.5 - 2.2 12/25 [facility] DRUG SCREEN U [place]ph Scr Negative Negative 12/[place] *NA* Medical (12/25/18 12:22 AM) Cente r DRUG SCREEN U [place] Scr Negative Negative 12/[place] *NA* Medical (12/25/18 12:22 AM) Cente r DRUG SCREEN U Benzodiaz Positive Negative 12/25 [facility] as Scr *ABN* Medical (12/25/18 12:22 AM) [...] r DRUG SCREEN U Negative Negative 12/25 [facility] Phencyclidin *NA* Medical e Scr (12/25/18 12:22 AM) Cente r DRUG SCREEN UDS Note See Note 12/25 [facility] (12/25/18 12:22 AM) Medic al Center HEMATOLOGY Heparin Negative 7 Negative 12/25 Result [facility] Ab(SRIDEVI) (12/25/18 12:22 AM) Comment: Th is Medical assay detects Center heparin antibodies of IgG isotype. Antibodies of other isotypes have been reported to cause heparin-induc ed thrombocytope davey. Therefore, if there is a strong clinical suspicion of HIT, additional study with a serotonin release assay is recommented. HEMATOLOGY Pat Od Value 0.215 12/25 [facility] HEMATOLOGY Pos CO Value 0.400 12/25 [facility] URINE AND UA Color Veronique Yellow 12/25 [facility] STOOL *ABN* [facility] (12/25/18 12:22 AM) Cente r URINE AND UA Turbidity Slight Clear 12/25 [facility] STOOL *ABN* [facility] (12/25/18 12:22 AM) Cente r URINE AND UA Spec Grav 1.029 <=1.030 12/25 [facility] URINE AND UA pH 5.0 5.0 - 8.0 12/25 [facility] /2018 [facility] URINE AND UA Protein 100 mg/dL Negative 12/25 [facility] STOOL mg/dL /2018 [facility] URINE AND UA Glucose Negative Negative 12/25 [facility] STOOL mg/dL mg/dL /2018 [facility] URINE AND UA Ketones Trace Negative 12/25 [facility] STOOL mg/dL mg/dL /2018 [facility] URINE AND UA Bili Negative Negative 12/25 [facility] STOOL *NA* /2018 Medical (12/25/18 12:22 AM) Cente r URINE AND UA Blood Moderate Negative 12/25 [facility] STOOL *ABN* [facility] (12/25/18 12:22 AM) Cente r URINE AND UA 4.0 0.1 - 1.0 12/25 [facility] STOOL Urobilinogen /2018 [facility] URINE AND UA Nitrite Negative Negative 12/25 [facility] (12/25/18 12:22 AM) [facility] URINE AND UA Leuk Est Negative Negative 12/25 [facility] STOOL (12/25/18 12:22 AM) [facility] URINE AND UA Sq Epi Few /LPF Few /LPF 12/25 [facility] STOOL /2018 [facility] URINE AND UA WBC 3 0 - 5 12/25 [facility] /2018 [facility] URINE AND UA RBC 37 0 - 2 12/25 [facility] /2018 [facility] URINE AND UA Bacteria Occasional None Seen 12/[place] /HPF /HPF [facility] URINE AND UA Mucus Few /LPF None Seen 12/25 [facility] STOOL /LPF /2018 [facility] URINE AND UA Renal Epi 23 <=0 /LPF 12/25 [facility] /2018 [facility] URINE AND UA Hyal Cast 1 0 - 2 12/25 [facility] /[address] [place] [address] VANCOMYCIN: Gram Stain Gram Stain 12/25 [place] SUSC:PT:ISO Report Performed Medical LATE:ORDQN: By: [facility] VANCOMYCIN: Culture: Moderate Staphylococ cus aureus , Upon Supplemental Testing, This Isolate Was Found To Be 12/25 [facility] SUSC:PT:ISO 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 Medical LATE:ORDQN: w/Gram Stain . [facility] Normal Respiratory Era Isolated VANCOMYCIN: Staphylococc Staphyloco 12/25 T aryaas SUSC:PT:ISO us aureus ccus Medical LATE:ORDQN: aureus [facility] BLOOD BANK ABO/Rh O POS 12/24 [facility] RESULTS [facility] BLOOD BANK Antibody Negative 5 12/24 Result [facility] RESULTS Scrn (12/24/18 6:54 PM) Comment: Medic al 12/24/2018 Center 20:18 [id number]
Patient has antibodies. Allow extra time for additional crossmatches. CARDIAC Total CK 62 12 - 191 12/24 [facility] ENZYMES [facility] CHEM PANEL Ammonia 27.0 <=45.0 12/24 [facility] uMol/L /2018 [facility] CHEM PANEL Lactic Acid 5.0 0.5 - 2.2 12/24 Result [facility] Lvl Comment: [facility] Result(s) called to Lisa Acharya at 12/24/2018 20:19 by fns. Read back OK. CHEM PANEL Procalcitoni 11.80 0.00 - 12/24 Result [facility] n Lvl 0. Comment: Medical CRITICAL [...] CHEM PANEL Creatinine 0.79 0.50 - 11/29 [facility] Lvl 1.40 [facility] CHEM PANEL Glucose Lvl 104 70 - 99 11/29 [facility] CHEM PANEL Potassium 4.2 3.5 - 5.1 11/29 [facility] CHEM PANEL BUN 19 7 - 22 11/29 [facility] CHEM PANEL Calcium Lvl 9.3 8.5 - 10.5 11/29 [facility] CHEM PANEL Sodium Lvl 140 135 - 145 11/29 [facility] CHEM PANEL CO2 30 24 - 32 11/29 [facility] CHEM PANEL Chloride Lvl 104 95 - 109 11/29 [facility] CHEM PANEL AGAP 10.2 10.0 - 11/29 [facility] 20.0 [facility] URINE AND UA WBC 0-2 /HPF None Seen 11/29 [facility] STOOL /HPF /2018 [facility] URINE AND UA Bacteria Few /HPF None Seen 11/29 [facility] STOOL /HPF /2018 [facility] URINE AND UA Sq Epi Moderate Few /LPF 11/29 [facility] STOOL /LPF /2018 [facility] URINE AND UA RBC None Seen 0 - 2 11/29 [facility] (11/29/18 10:09 AM) [facility] URINE AND UA Mucus Few /LPF None Seen 11/29 [facility] STOOL /LPF /2018 [facility] URINE AND UA CaOx Jagruti Moderate None Seen 11/29 [place] STOOL /HPF /HPF /2018 [facility] URINE AND UA 0.2 0.1 - 1.0 11/29 [facility] Urobilinogen /2018 [facility] URINE AND UA Blood Negative Negative 11/29 [facility] (11/29/18 10:09 AM) [facility] URINE AND UA Nitrite Negative Negative 11/29 [facility] (11/29/18 10:09 AM) [facility] URINE AND UA Bili Small Negative 11/29 [facility] *ABN* /2018 [facility] (11/29/18 10:09 AM) [place] URINE AND UA Leuk Est Negative Negative 11/29 [facility] (11/29/18 10:09 AM) /2018 [facility] URINE AND UA Protein 100 mg/dL Negative 11/29 [facility] mg/dL /2018 [facility] URINE AND UA pH 5.5 5.0 - 8.0 11/29 [facility] /2018 [facility] URINE AND UA Ketones Negative Negative 11/29 [facility] *NA* /2018 [facility] (11/29/18 10:09 AM) [place] URINE AND UA Glucose Negative Negative 11/29 [facility] (11/29/18 10:09 AM) [facility] URINE AND UA Color Yellow Yellow 11/29 [facility] *NA* /2018 [facility] (11/29/18 10:09 AM) [place] URINE AND UA Turbidity Slight Cloudy Clear 11/29 [facility] (11/29/18 10:09 AM) [facility] URINE AND UA Spec Grav >=1.030 <=1.030 11/29 [facility] *ABN* /2018 [facility] (11/29/18 10:09 AM) [place] HEMATOLOGY MPV 10.6 7.4 - 10.4 09/23 [place] /2018 [facility] HEMATOLOGY MCV 91.5 80.0 - 09/23 [place] 98.0 [facility] HEMATOLOGY Hct 42.9 36.0 - 09/23 [facility] [place] 48.0 [facility] HEMATOLOGY MCH 31.0 27.0 - 09/23 31.0 [facility] HEMATOLOGY RDW 14.1 11.5 - 09/23 14.5 [facility] HEMATOLOGY MCHC 33.8 32.0 - 09/23 36.0 [facility] HEMATOLOGY Platelet 128 133 - 450 09/23 2018 [facility] HEMATOLOGY Hgb 14.5 12.0 - 09/23 16.0 [facility] HEMATOLOGY WBC 10.8 3.7 - 10.4 09/23 [facility] HEMATOLOGY RBC 4.69 4.20 - 09/23 [place] 5.40 [facility] HEMATOLOGY Eosinophils 0.1 0.0 - 0.5 09/23 [facility] HEMATOLOGY Segs 70.7 45.0 - 09/23 [facility] 75.0 [facility] HEMATOLOGY Lymphocytes 21.8 20.0 - 09/23 [facility] 40.0 [facility] HEMATOLOGY Lymphocytes 2.4 1.0 - 5.5 09/23 [facility] HEMATOLOGY Neutrophils 7.6 1.5 - 8.1 09/23 [facility] HEMATOLOGY Monocytes # 0.7 0.0 - 0.8 09/23 [facility] HEMATOLOGY Monocytes 6.7 2.0 - 12.0 09/23 2018 [facility] HEMATOLOGY Basophils 0.3 0.0 - 1.0 09/23 2018 [facility] HEMATOLOGY Eosinophils 0.5 0.0 - 4.0 09/23 [facility] CHEM PANEL Magnesium 2.2 1.8 - 2.4 09/23 [facility] Lvl [facility] CHEM PANEL Phosphorus 3.0 2.5 - 4.5 09/23 [facility] CHEM PANEL eGFR 69 09/23 Result Comment: [...] PANEL CO2 28 24 - 32 09/23 [facility] CHEM PANEL Sodium Lvl 141 135 - 145 09/23 [facility] CHEM PANEL Potassium 3.8 3.5 - 5.1 09/23 [facility] l [facility] CHEM PANEL Chloride Lvl 107 95 - 109 09/23 [facility] CHEM PANEL AGAP 9.8 10.0 - 09/23 20.0 [facility] CHEM PANEL Calcium Lvl 8.1 8.5 - 10.5 09/23 [facility] CHEM PANEL BUN 23 7 - 22 09/23 [facility] CHEM PANEL Creatinine 0.86 0.50 - 09/23 [place] Lvl 1.40 [facility] CHEM PANEL Glucose Lvl 43 70 - 99 09/23 Result Comment: [facility] Critical [facility] Result(s) called to Mony Figueroa at 09/23/2018 08:35 by . Read back OK.
Reche cked HEMATOLOGY Hgb 14.6 12.0 - 09/23 16.0 [facility] HEMATOLOGY Hct 44.7 36.0 - 09/23 48.0 [facility] HEMATOLOGY RBC 4.85 4.20 - 09/23 5.40 [facility] HEMATOLOGY WBC 14.1 3.7 - 10.4 09/23 [facility] HEMATOLOGY MPV 10.9 7.4 - 10.4 09/23 [facility] HEMATOLOGY RDW 14.2 11.5 - 09/23 14.5 [facility] HEMATOLOGY Platelet 114 133 - 450 09/23 [facility] HEMATOLOGY MCV 92.2 80.0 - 09/23 [place] 98.0 [facility] HEMATOLOGY MCH 30.1 27.0 - 09/23 [facility] 31.0 [facility] HEMATOLOGY MCHC 32.6 32.0 - 09/23 [facility] 36.0 [facility] PARATHYROID Ca Norm WB 1.05 1.05 - 09/23 [facility] PROFILE 1. [facility] PARATHYROID Ca Ion WB 1.00 1.05 - 09/23 [facility] PROFILE 1. [facility] CHEM PANEL Bili Total 0.6 0.2 - 1.3 09/22 [facility] CHEM PANEL AST 35 0 - 37 09/22 [facility] CHEM PANEL Alk Phos 95 39 - 136 09/22 [facility] CHEM PANEL ALT 47 0 - 65 09/22 [facility] CHEM PANEL eGFR 52 09/22 [facility] Comment: The Medical eGFR is Center [...] Albumin Lvl 2.3 3.5 - 5.0 09/22 [facility] CHEM PANEL Total 7.1 6.4 - 8.4 09/22 [facility] Protein [facility] CHEM PANEL CO2 26 24 - 32 09/22 [facility] CHEM PANEL Calcium Lvl 8.1 8.5 - 10.5 09/22 [facility] CHEM PANEL Chloride Lvl 102 95 - 109 09/22 [facility] CHEM PANEL Potassium 4.3 3.5 - 5.1 09/22 [facility] Lvl [facility] CHEM PANEL Sodium Lvl 135 135 - 145 09/22 [facility] CHEM PANEL Creatinine 1.07 0.50 - 09/22 [place] Lvl 1.40 /2018 [facility] CHEM PANEL Glucose Lvl 272 70 - 99 09/22 [facility] CHEM PANEL BUN 29 7 - 22 09/22 2018 [facility] CHEM PANEL Globulin 4.8 2.7 - 4.2 09/22 2018 [facility] CHEM PANEL A/G Ratio 0.5 0.7 - 1.6 09/22 [facility] CHEM PANEL B/C Ratio 27 6 - 25 09/22 2018 [facility] CHEM PANEL AGAP 11.3 10.0 - 09/22 [place] 20.0 [facility] HEMATOLOGY Monocytes 6.5 2.0 - 12.0 09/22 [facility] HEMATOLOGY Eosinophils 0.1 0.0 - 4.0 09/22 [facility] HEMATOLOGY Basophils 0.2 0.0 - 1.0 09/22 [facility] HEMATOLOGY Segs 73.8 45.0 - 09/22 [place] 75.0 [facility] HEMATOLOGY Lymphocytes 19.4 20.0 - 09/22 [place] 40.0 [facility] HEMATOLOGY Neutrophils 6.0 1.5 - 8.1 09/22 [place] # /2018 [facility] HEMATOLOGY Lymphocytes 1.6 1.0 - 5.5 09/22 [place] # /2018 [facility] HEMATOLOGY Monocytes # 0.5 0.0 - 0.8 09/22 [place] [facility] HEMATOLOGY MPV 11.3 7.4 - 10.4 09/22 [facility] HEMATOLOGY MCHC 33.1 32.0 - 09/22 [place] 36.0 2019 [facility] HEMATOLOGY RDW 14.0 11.5 - 09/22 [place] 14.5 [facility] HEMATOLOGY Platelet 106 133 - 450 09/22 [facility] HEMATOLOGY MCV 93.1 80.0 - 09/22 [place] 98.0 [facility] HEMATOLOGY Hct 44.2 36.0 - 09/22 [place] 48.0 2019 [facility] HEMATOLOGY MCH 30.8 27.0 - 09/22 [place] 31.0 2019 [facility] HEMATOLOGY RBC 4.74 4.20 - 09/22 [facility] [place] 5.40 [facility] HEMATOLOGY WBC 8.1 3.7 - 10.4 09/22 [facility] HEMATOLOGY Hgb 14.6 12.0 - 09/22 16. [facility] CHEM PANEL Phosphorus 3.3 2.5 - 4.5 09/18 [facility] CHEM PANEL Magnesium 2.0 1.8 - 2.4 09/18 [facility] CHEM PANEL eGFR 70 09/18 [facility] Comment: The Medical eGFR is Center [...] Calcium Lvl 8.7 8.5 - 10.5 09/18 [facility] CHEM PANEL Creatinine 0.84 0.50 - 09/18 [facility] Lvl 1.40 [facility] CHEM PANEL Sodium Lvl 142 135 - 145 09/18 [facility] CHEM PANEL BUN 32 7 - 22 09/18 [facility] CHEM PANEL Chloride Lvl 106 95 - 109 09/18 [facility] s [facility] CHEM PANEL CO2 32 24 - 32 09/18 2018 [facility] CHEM PANEL Potassium 3.9 3.5 - 5.1 09/[address] [facility] CHEM PANEL Glucose Lvl 107 70 - 99 09/18 2018 [facility] CHEM PANEL AGAP 7.9 10.0 - 09/18 20. [facility] HEMATOLOGY Monocytes # 0.7 0.0 - 0.8 09/18 [place] /[place] [facility] HEMATOLOGY Lymphocytes 1.7 1.0 - 5.5 09/18 [place] # /2018 [facility] Center HEMATOLOGY Neutrophils 6.0 1.5 - 8.1 09/18 [facility] # /2018 [facility] HEMATOLOGY Basophils 0.1 0.0 - 1.0 09/18 [facility] HEMATOLOGY Monocytes 8.5 2.0 - 12.0 09/18 [facility] HEMATOLOGY Lymphocytes 20.3 20.0 - 09/18 [place] 40.0 [facility] HEMATOLOGY Segs 71.1 45.0 - 09/18 [place] 75.0 [facility] HEMATOLOGY MCHC 33.8 32.0 - 09/18 [place] 36.0 [facility] HEMATOLOGY RDW 14.1 11.5 - 09/18 [place] 14.5 [facility] HEMATOLOGY MCH 31.2 27.0 - 09/18 [place] 31.0 [facility] HEMATOLOGY MCV 92.2 80.0 - 09/18 [place] 98.0 [facility] HEMATOLOGY Hct 44.7 36.0 - 09/18 [place] 48.0 2019 [facility] HEMATOLOGY RBC 4.85 4.20 - 09/18 [place] 5.40 [facility] HEMATOLOGY WBC 8.5 3.7 - 10.4 09/18 [facility] HEMATOLOGY Hgb 15.1 12.0 - 09/18 [place] 16.0 [facility] HEMATOLOGY MPV 11.8 7.4 - 10.4 09/18 [facility] HEMATOLOGY Platelet 81 133 - 450 09/18 [facility] PARATHYROID Ca Ion WB 1.09 1.05 - 09/18 [place] PROFILE 1. [facility] PARATHYROID Ca Norm WB 1.09 1.05 - 09/18 [facility] PROFILE . [facility] CHEM PANEL Magnesium 2.0 1.8 - 2.4 09/17 [facility] Lvl [facility] CHEM PANEL Calcium Lvl 8.6 8.5 - 10.5 09/17 [place] [facility] CHEM PANEL AGAP 6.4 10.0 - 09/17 [place] 20.0 [facility] CHEM PANEL eGFR 70 09/17 [facility] Comment: The Medical eGFR is Center [...] PANEL Potassium 3.4 3.5 - 5.1 09/17 [facility] Lvl [facility] CHEM PANEL Sodium Lvl 142 135 - 145 09/17 [facility] CHEM PANEL Chloride Lvl 104 95 - 109 09/17 [place] [facility] CHEM PANEL Creatinine 0.84 0.50 - 09/17 [facility] Lvl 1.40 [facility] CHEM PANEL CO2 35 24 - 32 09/17 [facility] CHEM PANEL Glucose Lvl 112 70 - 99 09/17 [facility] CHEM PANEL BUN 37 7 - 22 09/17 2018 [facility] CHEM PANEL Phosphorus 2.6 2.5 - 4.5 09/17 [facility] HEMATOLOGY Platelet 71 133 - 450 09/17 [facility] HEMATOLOGY MCHC 33.1 32.0 - 09/17 [place] 36.0 [facility] HEMATOLOGY MPV 10.7 7.4 - 10.4 09/17 [facility] HEMATOLOGY RDW 14.1 11.5 - 09/17 [place] 14.5 [facility] HEMATOLOGY MCH 30.4 27.0 - 09/17 [place] 31.0 [facility] HEMATOLOGY WBC 9.7 3.7 - 10.4 09/17 [facility] HEMATOLOGY MCV 92.0 80.0 - 09/17 [place] 98.0 [facility] HEMATOLOGY Hct 44.7 36.0 - 09/17 [place] 48.0 [facility] HEMATOLOGY RBC 4.86 4.20 - 09/17 [place] 5.40 /2018 [facility] HEMATOLOGY Hgb 14.8 12.0 - 09/17 [place] 16.0 [facility] HEMATOLOGY Lymphocytes 1.4 1.0 - 5.5 09/17 [facility] # /2018 [facility] HEMATOLOGY Neutrophils 7.6 1.5 - 8.1 09/17 [facility] # /2018 [facility] HEMATOLOGY Monocytes 7.0 2.0 - 12.0 09/17 [facility] HEMATOLOGY Basophils 0.5 0.0 - 1.0 09/17 [facility] HEMATOLOGY Lymphocytes 14.4 20.0 - 09/17 [place] 40.0 [facility] HEMATOLOGY Monocytes # 0.7 0.0 - 0.8 09/17 [facility] /2018 [facility] HEMATOLOGY Segs 78.1 45.0 - 09/17 [facility] 75.0 [facility] PARATHYROID Ca Ion WB 1.11 1.05 - 09/17 [facility] PROFILE 1. [facility] PARATHYROID Ca Norm WB 1.14 1.05 - 09/17 [facility] PROFILE . [facility] CHEM PANEL Magnesium 2.1 1.8 - 2.4 09/16 [facility] Lvl [facility] CHEM PANEL Phosphorus 2.0 2.5 - 4.5 09/16 [facility] ELECTROLYTE AGAP 8.1 10.0 - 09/16 [facility] S 20.0 [facility] ELECTROLYTE eGFR 47 09/16 Result [facility] Comment: The Medical eGFR is Center [...] ELECTROLYTE CO2 33 24 - 32 09/16 [facility] ELECTROLYTE Calcium Lvl 8.4 8.5 - 10.5 09/16 [place] /2018 [facility] ELECTROLYTE Potassium 4.1 3.5 - 5.1 09/16 Result [facility] Lvl /2018 Comment: [facility] Moderately Hemolyzed. ELECTROLYTE Chloride Lvl 102 95 - 109 09/16 [facility] ELECTROLYTE Sodium Lvl 139 135 - 145 09/16 [facility] S [facility] ELECTROLYTE BUN 37 7 - 22 09/16 [facility]2018 [facility] ELECTROLYTE Creatinine 1.17 0.50 - 09/16 [facility] Lvl 1.40 [facility] ELECTROLYTE Glucose Lvl 302 70 - 99 09/16 [facility]2018 [facility] HEMATOLOGY Platelet 77 133 - 450 09/16 2018 [facility] HEMATOLOGY MCHC 33.5 32.0 - 09/16 [facility] 36.0 [facility] HEMATOLOGY RDW 14.2 11.5 - 09/16 [facility] 14.5 [facility] HEMATOLOGY MPV 11.1 7.4 - 10.4 09/16 [facility] HEMATOLOGY MCV 92.4 80.0 - 09/16 [facility] 98.0 [facility] HEMATOLOGY MCH 31.0 27.0 - 09/16 [facility] 31.0 2019 [facility] HEMATOLOGY Hct 41.6 36.0 - 09/16 [facility] 48.0 2019 [facility] HEMATOLOGY RBC 4.50 4.20 - 09/16 [facility] 5.40 [facility] HEMATOLOGY Hgb 14.0 12.0 - 09/16 [facility] 16.0 2019 [facility] HEMATOLOGY WBC 10.6 3.7 - 10.4 09/16 [facility] HEMATOLOGY Neutrophils 8.8 1.5 - 8.1 09/16 [facility] HEMATOLOGY Monocytes # 0.7 0.0 - 0.8 09/16 [facility] /2018 [facility] HEMATOLOGY Basophils 0.3 0.0 - 1.0 09/[address] HEMATOLOGY Lymphocytes 1.0 1.0 - 5.5 09/16 [facility] HEMATOLOGY Segs 83.3 45.0 - 09/16 [place] 75.0 [facility] HEMATOLOGY Lymphocytes 9.9 20.0 - 09/16 [place] 40.0 [facility] HEMATOLOGY Monocytes 6.5 2.0 - 12.0 09/16 [facility] PARATHYROID Ca Norm WB 1.13 1.05 - 09/16 [place] PROFILE 1. [facility] PARATHYROID Ca Ion WB 1.13 1.05 - 09/16 [facility] PROFILE 1. [facility] URINE AND UA Renal Epi 3 <=0 /LPF 09/15 [facility] STOOL [facility] URINE AND UA Bacteria Occasional None Seen 09/15 [place] ST[place]OL /HPF /HPF [facility] URINE AND UA Mucus Few /LPF None Seen 09/15 [facility] STOOL /LPF [facility] URINE AND UA Hyal Cast 1 0 - 2 09/15 [facility] URINE AND UA Amorph Occasional None Seen 09/15 [place] /HPF /HPF [facility] URINE AND UA Protein 30 mg/dL Negative 09/15 [facility] mg/dL /2018 [facility] URINE AND UA pH 5.5 5.0 - 8.0 09/15 [facility] URINE AND UA Glucose 250 Negative 09/15 [facility] *ABN* /2018 [facility] (09/15/18 5:04 PM) Center URINE AND UA Ketones Negative Negative 09/15 [facility] *NA* /2018 [facility] (09/15/18 5:04 PM) Center URINE AND UA WBC 5 0 - 5 09/15 [facility] URINE AND UA RBC 4 0 - 2 09/15 [facility] STOOL [facility] URINE AND UA Sq Epi Occasional Few /LPF 09/15 [facility] STOOL /LPF [facility] URINE AND UA Leuk Est Negative Negative 09/15 [facility] (09/15/18 5:04 PM) Medica l Center URINE AND UA Blood Negative Negative 09/15 [facility] (09/15/18 5:04 PM) Medica l [place] URINE AND UA 0.2 0.1 - 1.0 09/15 [facility] Urobilinogen /2018 [facility] URINE AND UA Nitrite Negative Negative 09/15 [facility] (09/15/18 5:04 PM) Medica l Center URINE AND UA Bili Negative Negative 09/15 [facility] STOOL *NA* /2018 Medical (09/15/18 5:04 PM) [place] URINE AND UA Spec Grav 1.025 <=1.030 09/15 [facility] STOOL [facility] URINE AND UA Turbidity Clear Clear 09/15 [facility] STOOL (09/15/18 5:04 PM) [facility] URINE AND UA Color Yellow Yellow 09/15 [facility] STOOL *NA* Medical (09/15/18 5:04 PM) [place] IMMUNOLOGY Striated 1:320 Neg:<1:40 09/15 Result [facility] Muscle IgG Comment: Medical Performed At: [facility]
[address], [place] [id number]<br/ >Kosta Tucker MD Ph:[phone] IMMUNOLOGY MuSK Auto Ab <1.0 09/14 Result [facility] Comment: Medical Reference Center Range:
Negative: [...] 0.
2. Yeny AVILEZ et al. PNAS 2013;110(68); [id number].< br/>3. Scot E et al. Neurology 2006;67:505-5 07.
This test was developed and its performance characteristi cs
determ ined by [facility]. It has not been cleared or approved
by the Food and Drug Administratio n.
Perfor med At: [employer]
[address], [place] [id number]<br/ >Feliciano Alston MD Ph:[phone] BACTERIAL - MRSA by PCR Negative 09/14 JOSUÉ alexis SEROLOGY (09/14/18 11:23 AM) /2018 [facility] IMMUNOLOGY ACHr Binding 1.25 0.00 - 09/14 Result [facility] Ab 0.24 Comment: [facility] Negative: 0.00 - 0.24
Borderline: 0.25 - 0.40
Positive: > 0.40
Perf ormed At: [facility]
[address] [place] [id number]<br/ >Kosta Tucker MD Ph:[phone] IMMUNOLOGY ACHr Block 42 0 - 25 09/14 Result [facility] Ab /2018 Comment: [facility] Negative: 0 - 25
Borderline: 26 - 30
Positive: >30

Results for this test are for research purposes
only by the assay's manager chemical. The performance<b r/>characteri stics of this product have not been
esta blished. Results should not be used as a
diagnos tic procedure without confirmation of the
diagn osis by another medically established<b r/>diagnostic product or procedure.&lt ;br/>Performe d At: [facility]
[address], [place] [id number]<br/ >Kosta Tucker MD Ph:[phone] HEMATOLOGY Eosinophils 0.1 0.0 - 0.5 09/13 [place] # /2018 [facility] HEMATOLOGY Basophils # 0.1 0.0 - 0.2 09/[place]2018 [facility] HEMATOLOGY Eosinophils 1.1 0.0 - 4.0 09/13 [place]2018 [facility] HEMATOLOGY Basophils # 0.1 0.0 - 0.2 09/13 [place] [facility] HEMATOLOGY Eosinophils 0.1 0.0 - 0.5 09/13 [place] # [facility] HEMATOLOGY Eosinophils 0.9 0.0 - 4.0 09/13 [place] /2018 [facility] HEMATOLOGY PB Smear Peripheral 09/12 [facility] Path blood /2018 [facility] smear Center examinatio n; - Platelets are decreased with few giant forms. No platelet clump. - RBCs are normocytic ; no schistocyt e - Leukocytes show unremarkab le morphology ; few reactive lymphocyte s. Clinical correlatio n is suggested. CPT 25101 URINE AND UA Bacteria Occasional None Seen 09/12 [place] /HPF /HPF /2018 [facility] URINE AND UA <1.0 0.1 - 1.0 09/12 [facility] STOOL Urobilinogen /2018 [facility] URINE AND UA Ketones Trace Negative 09/12 [facility] STOOL *ABN* [facility] (09/12/18 11:27 AM) Cente r URINE AND UA Blood Small Negative 09/12 [facility] STOOL *ABN* [facility] (09/12/18 11:27 AM) Cente r URINE AND UA Bili Negative Negative 09/12 [facility] *NA* [facility] (09/12/18 11:27 AM) Cente r URINE AND UA Glucose 150mg/dl 09/12 [facility] STOOL /2018 [facility] URINE AND UA Protein 100 mg/dL Negative 09/12 [facility] STOOL mg/dL [facility] URINE AND UA Turbidity Slight Clear 09/12 [facility] STOOL *ABN* [facility] (09/12/18 11:27 AM) Cente r URINE AND UA pH 5.0 5.0 - 8.0 09/12 [facility] STOOL /[address] [place] [address] URINE AND UA Spec Grav 1.018 <=1.030 09/12 [facility] STOOL [address] [place] [address] URINE AND UA Color Yellow Yellow 09/12 [facility] STOOL *NA* [facility] (09/12/18 11:27 AM) Cente r URINE AND UA Mucus Few /LPF None Seen 09/12 [facility] STOOL /LPF /[address] [place] [address] URINE AND UA Hyal Cast 4 0 - 2 09/12 [facility] STOOL /2018 [facility] URINE AND UA WBC 4 0 - 5 09/12 [facility] /2018 [facility] URINE AND UA Nitrite Negative Negative 09/12 [facility] (09/12/18 11:27 AM) [facility] URINE AND UA RBC 1 0 - 2 09/12 [facility] STOOL /2018 [facility] URINE AND UA Sq Epi Moderate Few /LPF 09/12 [facility] STOOL /LPF /2018 [facility] URINE AND UA Leuk Est Negative Negative 09/12 [facility] STOOL (09/12/18 11:27 AM) /2018 [facility] CHEM PANEL Bili Total 0.7 0.2 - 1.3 09/[address] CHEM PANEL Alk Phos 141 39 - 136 09/[address] CHEM PANEL Total 8.3 6.4 - 8.4 09/12 [facility] Protein [facility] CHEM PANEL AST 25 0 - 37 09/[address] CHEM PANEL ALT 34 0 - 65 09/[address] CHEM PANEL Albumin Lvl 2.7 3.5 - 5.0 09/12 [facility] CHEM PANEL Globulin 5.6 2.7 - 4.2 09/[address] CHEM PANEL B/C Ratio 9 6 - 25 09/[address] CHEM PANEL A/G Ratio 0.5 0.7 - 1.6 09/12 [facility]2018 [facility] HEMATOLOGY PTT 31.6 22.9 - 09/12 [place] 35.8 /2019 [facility] HEMATOLOGY PT 14.2 12.0 - 09/12 [place] 14.7 2019 [facility] HEMATOLOGY INR 1.12 0.85 - 09/12 [place] 1.17 [facility] HEMATOLOGY Eosinophils 2.4 0.0 - 4.0 09/12 [facility] /2018 [facility] HEMATOLOGY Eosinophils 0.2 0.0 - 0.5 09/12 [place] # [facility] HEMATOLOGY Basophils # 0.2 0.0 - 0.2 09/12 [facility] /2018 [facility] IMMUNOLOGY JAK2 (V617F) Comment 09/12 Result [facility] Director /2019 Comment: Medical Review [facility] , PhD
[facility], Molecular Oncology
[facility]<br/ >[place] [address]
1-8 [phone]<b r/>Performed At: [facility]
[address] [place], [place] [id number]< br/>Samara Cordova MD Ph:[phone] IMMUNOLOGY JAK2 (V617F) Comment 09/12 Result [facility] Comment: Medical
[facility] EJ, Sanchez LM, Javed PJ, et al. Acquired
mutation of the tyrosine kinase JAK2 in human
mye loproliferati ve disorders. Lancet. 2004Aug 17-;<br/ >365(8781):71 54-1061. Ankur Norman, Mj V, [address] HANK. A
unique clonal JAK2 mutation leading to constitutive< br/>signaling causes polycythaemia vera. Nature. 2004Sep 26;
43 4(0015):1143- 1140.
Flora R, Marianne F, Lizbeth , et al. A gain-of-
function mutation of JAK2 in myeloprolifer ative disorders.
N Engl J Med. 2004Sep 26; 35217):1779- 1790. IMMUNOLOGY JAK2 (V617F) Comment 09/12 Result [facility] Mutation Qnt Comment: Medical Result NEGATIVE
[...] assay. IMMUNOLOGY JAK2 (V617F) Comment 09/12 Result [facility] Methodology /2018 Comment: Medical
[facility] genomic DNA was extracted and subjected to TaqMan
re al-time PCR amplification /detection. Two amplification
products per sample were monitored by real-time PCR using
winifred mers/probes specific to JAK2 wild type (WT) and JAK2
muta nt [id number]. The [id number] Absolute Quantitation software
will compare the patient [...] 1%. IMMUNOLOGY JAK2 (V617F) Comment 09/12 Result [facility] Comment: Medical
[facility] [place] [facility] Real-Time PCR assay detects V617F mutation
[...] Bili Direct <0.1 0.0 - 0.3 09/11 [facility] CHEM PANEL Bili Unable to 0.0 - 1.0 09/11 [facility] Indirect [facility] CHEM PANEL A/G Ratio 0.5 0.7 - 1.6 09/[address] CHEM PANEL ALT 40 0 - 65 09/[address] CHEM PANEL AST 31 0 - 37 09/[address] CHEM PANEL Alk Phos 144 39 - 136 09/[address] CHEM PANEL Bili Total 0.8 0.2 - 1.3 09/11 [place] [facility] CHEM PANEL Total 7.3 6.4 - 8.4 09/11 [facility] Protein [facility] CHEM PANEL Albumin Lvl 2.5 3.5 - 5.0 09/11 [facility] CHEM PANEL Globulin 4.8 2.7 - 4.2 09/[address] Culture: 10,000 - 09/10 [facility] Urine 50,000 [facility] CFU/mL [place] [facility] BLOOD B[facility] Antibody Negative 09/10 [facility] RESULTS Scrn (09/10/18 5:06 PM) Medica l [place] BLOOD BANK ABO/Rh O POS 09/10 [facility] RESULTS [facility] CHEM PANEL Alk Phos 166 39 - 136 09/10 [facility]2018 [facility] CHEM PANEL Bili Total 0.8 0.2 - 1.3 09/10 [facility]2018 [facility] CHEM PANEL ALT 45 0 - 65 09/[address] CHEM PANEL AST 35 0 - 37 09/10 [facility]2018 [facility] CHEM PANEL Total 7.1 6.4 - 8.4 09/10 [facility] Protein [facility] CHEM PANEL Albumin Lvl 2.9 3.5 - 5.0 09/10 [facility] CHEM PANEL B/C Ratio 11 6 - 25 09/10 [facility]2018 [facility] CHEM PANEL A/G Ratio 0.7 0.7 - 1.6 09/10 [facility]2018 [facility] CHEM PANEL Globulin 4.2 2.7 - 4.2 09/[address] HEMATOLOGY Heparin Negative 1 Negative 09/10 Result [facility] Ab(SRIDEVI) (09/10/18 5:06 PM) Comment: [facility] Medical assay detects Center heparin antibodies of IgG isotype. Antibodies of other isotypes have been reported to cause heparin-induc ed thrombocytope davey. Therefore, if there is a strong clinical suspicion of HIT, additional study with a serotonin release assay is recommented. HEMATOLOGY Pat Od Value 0.127 09/10 [facility] HEMATOLOGY Pos CO Value 0.400 09/10 [facility]2018 [facility] HEMATOLOGY INR 1.08 0.85 - 09/10 [place] 1.17 [facility] HEMATOLOGY Thrombin 19.1 15.0 - 09/10 [place] Time 21.2 [facility] HEMATOLOGY D-Dimer 1.22 09/10 [place] [facility] HEMATOLOGY Fibrinogen 548 230 - 510 09/10 [place] Lvl /2018 [facility] HEMATOLOGY PTT 30.3 22.9 - 09/10 [place] 35.8 /2018 [facility] HEMATOLOGY PT 13.8 12.0 - 09/10 [facility] 14.7 /2018 [facility] IMMUNOLOGY IgA Lvl 615.0 68.0 - 09/10 [place] 378.0 [facility] URINE AND UA Glucose 50mg/dl 09/10 [facility] STOOL [facility] URINE AND UA Turbidity Marked Clear 09/10 [facility] *ABN* [facility] (09/10/18 5:06 PM) [place] URINE AND UA Color Yellow Yellow 09/10 [facility] *NA* [facility] (09/10/18 5:06 PM) [place] URINE AND UA Protein 30 mg/dL Negative 09/10 [facility] mg/dL [facility] URINE AND UA pH 6.0 5.0 - 8.0 09/10 [facility] [address] [place] [address] URINE AND UA Ketones Trace Negative 09/10 [facility] *ABN* [facility] (09/10/18 5:06 PM) [place] URINE AND UA Bili Negative Negative 09/10 [facility] *NA* [facility] (09/10/18 5:06 PM) [place] URINE AND UA Leuk Est Trace Negative 09/10 [facility] *ABN* [facility] (09/10/18 5:06 PM) [place] URINE AND UA <1.0 0.1 - 1.0 09/10 [facility] Urobilinogen /[address] [place] [address] URINE AND UA Blood Small Negative 09/10 [facility] *ABN* [facility] (09/10/18 5:06 PM) [place] URINE AND UA Nitrite Negative Negative 09/10 [facility] (09/10/18 5:06 PM) /2018 Medica l Center URINE AND UA Spec Grav 1.012 <=1.030 09/10 [facility] URINE AND UA WBC 19 0 - 5 09/10 [facility] [address] [place] [address] URINE AND UA Sq Epi Few /LPF Few /LPF 09/10 [facility] [address] [place] [address] URINE AND UA RBC 1 0 - 2 09/10 [facility] [address] [place] [address] URINE AND UA Mucus Few /LPF None Seen 09/10 [facility] STOOL /LPF /2018 [facility] HEMATOLOGY Bands 0.0 0.0 - 11.0 09/10 [place] [facility] HEMATOLOGY Large Plt Slight 09/10 [facility] HEMATOLOGY Atypical 0.0 <=0.0 % 09/10 [facility] Lymphs /2018 [facility] IMMUNOLOGY Striated 1:320 Neg:<1:40 09/10 Result [facility] Muscle IgG Comment: Medical Performed At: Center [facility]
[address] [place] [id number]<br/ >Kosta Tucker MD Ph:[phone] IMMUNOLOGY IgA Lvl 592.0 68.0 - 09/10 [place] 378.0 [facility] HEMATOLOGY Sed Rate 20 0 - 20 09/09 [facility] IMMUNOLOGY C-REACTIVE 5.2 <=2.9 mg/L 09/09 [place] /2018 [facility] HEMATOLOGY PTT 32.0 22.9 - 09/08 35.8 /2018 [facility] HEMATOLOGY PT 13.5 12.0 - 09/08 14.7 /2018 [facility] HEMATOLOGY INR 1.05 0.85 - 09/08 1.17 /2018 [facility] ELECTROLYTE AGAP 15.8 10.0 - 09/08 S 20.0 [facility] ELECTROLYTE B/C Ratio 16 6 - 25 09/08 S [facility] ELECTROLYTE Globulin 4.2 2.7 - 4.2 09/08 S [facility] ELECTROLYTE A/G Ratio 0.7 0.7 - 1.6 09/08 S [facility] ELECTROLYTE Sodium Lvl 147 135 - 145 09/08 S [facility] ELECTROLYTE Potassium 3.8 3.5 - 5.1 09/08 S Lvl /2018 [facility] ELECTROLYTE Chloride Lvl 107 95 - 109 09/08 S [facility] ELECTROLYTE BUN 21 7 - 22 09/08 S [facility] ELECTROLYTE Glucose Lvl 144 70 - 99 09/08 S [facility] ELECTROLYTE Albumin Lvl 2.9 3.5 - 5.0 09/08 S [facility] ELECTROLYTE CO2 28 24 - 32 09/08 S [facility] ELECTROLYTE eGFR 40 09/08 Result S Comment: [facility] eGFR is City calculated using the [...] 137 0 - 37 09/08 MH S [facility] ELECTROLYTE ALT 67 0 - 65 09/08 MH S [facility] ELECTROLYTE Creatinine 1.33 0.50 - 04 MH S Lvl 1.40 [facility] ELECTROLYTE Bili Total 1.3 0.2 - 1.3 09/08 MH S [facility] ELECTROLYTE Total 7.1 6.4 - 8.4 09/08 MH S Protein /2018 [facility] ELECTROLYTE Alk Phos 195 39 - 136 09/08 S [facility] ELECTROLYTE Calcium Lvl 9.3 8.5 - 10.5 09/08 S [facility] HEMATOLOGY Basophils # 0.1 0.0 - 0.2 09/08 [facility] HEMATOLOGY Neutrophils 2.5 1.5 - 8.1 09/08 [place] # /2018 [facility] HEMATOLOGY Eosinophils 0.2 0.0 - 0.5 09/08 MH # [facility] HEMATOLOGY Monocytes # 0.7 0.0 - 0.8 09/08 [facility] HEMATOLOGY Lymphocytes 3.3 1.0 - 5.5 09/08 MH # [facility] HEMATOLOGY Monocytes 9.8 2.0 - 12.0 09/08 [facility] HEMATOLOGY Eosinophils 2.5 0.0 - 4.0 09/08 [facility] HEMATOLOGY Basophils 2.0 0.0 - 1.0 09/08 [facility] HEMATOLOGY Lymphocytes 48.8 20.0 - 04 MH 40.0 [facility] HEMATOLOGY Segs 36.9 45.0 - 09/08 75.0 [facility] HEMATOLOGY MPV 11.3 7.4 - 10.4 09/08 [facility] HEMATOLOGY MCH 30.3 27.0 - 09/08 31.0 [facility] HEMATOLOGY Platelet 125 133 - 450 09/08 [facility] HEMATOLOGY RDW 13.9 11.5 - 09/08 14. [facility] HEMATOLOGY MCV 92.9 80.0 - 09/08 98.0 [facility] HEMATOLOGY MCHC 32.6 32.0 - 09/08 36.0 [facility] HEMATOLOGY WBC 6.8 3.7 - 10.4 09/08 [facility] HEMATOLOGY RBC 5.13 4.20 - 09/08 . [facility] HEMATOLOGY Hgb 15.5 12.0 - 09/08 16.0 [facility] HEMATOLOGY Hct 47.7 36.0 - 09/08 48.0 [facility] LIPIDS VLDL 24 09/08 [facility] LIPIDS LDL 45 <=99 mg/dL 09/08 (Calculated) [facility] LIPIDS CHD Risk 2.82 3.90 - 09/08 5.80 [facility] LIPIDS HDL 38 >=61 mg/dL 09/08 [facility] LIPIDS Trig 118 <=149 09/08 mg/dL [facility] LIPIDS Chol 107 <=199 09/08 mg/dL [facility] SPECIAL Hgb A1C 12.2 <=5.6 % 09/08 CHEMISTRY [facility] HEMATOLOGY MPV 9.7 7.4 - 10.4 08/19 [facility] HEMATOLOGY Platelet 163 133 - 450 08/19 [facility] HEMATOLOGY RDW 13.7 11.5 - 08/19 [place] 14. [facility] HEMATOLOGY Hgb 17.8 12.0 - 08/19 [place] 16.0 [facility] HEMATOLOGY Hct 52.9 36.0 - 08/19 [place] 48.0 [facility] HEMATOLOGY MCV 92.3 80.0 - 08/19 [place] 98.0 [facility] HEMATOLOGY RBC 5.73 4.20 - 08/19 [place] 5.40 [facility] HEMATOLOGY WBC 8.5 3.7 - 10.4 08/19 [facility] HEMATOLOGY MCHC 33.6 32.0 - 08/19 [facility] 36.0 [facility] HEMATOLOGY MCH 31.0 27.0 - 08/19 [facility] 31.0 [facility] CARDIAC BNP 98 <=100 08/19 [facility] ENZYMES pg/mL [facility] CHEM PANEL Phosphorus 3.4 2.5 - 4.5 08/19 [facility] CHEM PANEL Magnesium 1.9 1.8 - 2.4 08/19 [facility] CHEM PANEL eGFR 62 08/19 Result Comment: The [facility] eGFR is Center calculated using the CKD-EPI [...] Calcium Lvl 8.8 8.5 - 10.5 08/19 [facility] CHEM PANEL CO2 23 24 - 32 08/19 [facility] CHEM PANEL Chloride Lvl 106 95 - 109 08/19 [facility] CHEM PANEL Potassium 4.6 3.5 - 5.1 08/19 Result [facility] Comment: [facility] Moderately Hemolyzed. CHEM PANEL Creatinine 0.94 0.50 - 08/19 [facility] Lvl 1.40 [facility] CHEM PANEL Sodium Lvl 138 135 - 145 08/19 2018 [facility] CHEM PANEL BUN 13 7 - 22 08/19 [facility] CHEM PANEL Glucose Lvl 160 70 - 99 08/19 [facility] CHEM PANEL AGAP 13.6 10.0 - 08/19 [facility] [place] 20.0 /2019 [facility] HEMATOLOGY Eosinophils 0.2 0.0 - 0.5 08/19 [place] # /2019 [facility] Center HEMATOLOGY Basophils # 0.1 0.0 - 0.2 08/19 [place] /2019 [facility] HEMATOLOGY Segs 47.9 45.0 - 08/19 [place] 75.0 /2019 [facility] HEMATOLOGY Lymphocytes 40.1 20.0 - 08/19 [place] 40.0 /2019 [facility] HEMATOLOGY Lymphocytes 3.9 1.0 - 5.5 08/19 [place] # /2019 [facility] HEMATOLOGY Monocytes # 0.9 0.0 - 0.8 08/19 [facility] HEMATOLOGY Monocytes 8.8 2.0 - 12.0 08/19 [facility] HEMATOLOGY Basophils 1.2 0.0 - 1.0 08/19 /2018 [facility] HEMATOLOGY Eosinophils 2.0 0.0 - 4.0 08/19 [facility] s /2018 [facility] HEMATOLOGY Neutrophils 4.7 1.5 - 8.1 08/19 [facility] HEMATOLOGY INR 1.09 0.85 - 08/19 [place] 1.17 [facility] HEMATOLOGY PT 13.9 12.0 - 08/19 [place] 14.7 [facility] HEMATOLOGY PTT 31.0 22.9 - 08/19 [place] 35.8 2019 [facility] HEMATOLOGY MCV 93.0 80.0 - 08/19 [place] 98.0 /2019 [facility] HEMATOLOGY MCH 31.1 27.0 - 08/19 [place] 31.0 2019 [facility] HEMATOLOGY RDW 13.7 11.5 - 08/19 [place] 14.5 2019 [facility] HEMATOLOGY MCHC 33.4 32.0 - 08/19 [place] 36.0 2019 [facility] HEMATOLOGY Platelet 77 133 - 450 08/19 /2018 [facility] HEMATOLOGY MPV 9.9 7.4 - 10.4 08/19 [facility] HEMATOLOGY Hct 49.7 36.0 - 08/19 [place] 48.0 /2019 [facility] HEMATOLOGY Hgb 16.6 12.0 - 08/19 [place] 16.0 /2019 [facility] HEMATOLOGY RBC 5.35 4.20 - 08/19 [place] 5.40 /2019 [facility] HEMATOLOGY WBC 9.7 3.7 - 10.4 08/19 [facility] PARATHYROID Ca Ion WB 1.02 1.05 - 08/19 [facility] PROFILE 1. [facility] PARATHYROID Ca Norm WB 0.98 1.05 - 08/19 [facility] PROFILE . [facility] URINE AND Occult Bld Negative Negative 08/19 [facility] STOOL Stl (08/19/18 4:40 AM) [facility] Culture: Normal Enteric Era Isolated 08/19 [facility] Stool No Salmonella Or Shigella [facility] CHEM PANEL Alk Phos 132 39 - 136 08/[address] CHEM PANEL A/G Ratio 0.6 0.7 - 1.6 08/[address] CHEM PANEL ALT 30 0 - 65 08/[address] CHEM PANEL Total 6.9 6.4 - 8.4 08/18 [facility] Protein [facility] CHEM PANEL Albumin Lvl 2.6 3.5 - 5.0 08/[address] CHEM PANEL Globulin 4.3 2.7 - 4.2 08/[address] CHEM PANEL Bili Direct <0.1 0.0 - 0.3 08/[address] CHEM PANEL Bili Total 0.5 0.2 - 1.3 08/[address] CHEM PANEL Bili >0.4 0.0 - 1.0 08/18 [facility] Indirect 2018 [facility] CHEM PANEL AST 21 0 - 37 08/[address] CHEM PANEL Calcium Lvl 8.5 8.5 - 10.5 08/[address] CHEM PANEL eGFR 71 08/18 [facility] Comment: The Medical eGFR is Center calculated [...] PANEL BUN 13 7 - 22 08/[address] CHEM PANEL Glucose Lvl 162 70 - 99 08/[address] CHEM PANEL CO2 27 24 - 32 08/[address] CHEM PANEL Potassium 3.6 3.5 - 5.1 08/[address] [facility] CHEM PANEL Sodium Lvl 142 135 - 145 08/[address] CHEM PANEL Chloride Lvl 108 95 - 109 08/[address] CHEM PANEL Creatinine 0.83 0.50 - 08/[address] [facility] 1.40 [facility] CHEM PANEL AGAP 10.6 10.0 - 08/18 [facility] 20.0 [facility] CHEM PANEL Magnesium 1.8 1.8 - 2.4 08/[address] [facility] CHEM PANEL Phosphorus 3.6 2.5 - 4.5 08/[address] HEMATOLOGY Neutrophils 3.9 1.5 - 8.1 08/18 [facility] HEMATOLOGY Eosinophils 2.5 0.0 - 4.0 08/[address] HEMATOLOGY Basophils 1.9 0.0 - 1.0 08/[address] HEMATOLOGY Monocytes # 0.6 0.0 - 0.8 08/18 [facility] /[address] [place] [address] HEMATOLOGY Lymphocytes 3.8 1.0 - 5.5 08/18 [facility] HEMATOLOGY Eosinophils 0.2 0.0 - 0.5 08/18 [facility] [address] [place] [address] HEMATOLOGY Basophils # 0.2 0.0 - 0.2 08/[address] HEMATOLOGY Lymphocytes 44.0 20.0 - 08/18 [place] 40.0 [facility] HEMATOLOGY Segs 45.3 45.0 - 08/18 [place] 75.0 [facility] HEMATOLOGY Monocytes 6.3 2.0 - 12.0 08/[address] HEMATOLOGY Hct 49.2 36.0 - 08/18 [facility] [place] 48.0 2019 [facility] HEMATOLOGY Hgb 17.0 12.0 - 08/18 [place] 16.0 2019 [facility] HEMATOLOGY RBC 5.30 4.20 - 08/18 [place] 5.40 /2019 [facility] HEMATOLOGY WBC 8.7 3.7 - 10.4 08/18 /2018 [facility] HEMATOLOGY MCV 92.8 80.0 - 08/18 [place] 98.0 [facility] HEMATOLOGY MPV 9.7 7.4 - 10.4 08/18 /2019 [facility] HEMATOLOGY RDW 13.6 11.5 - 08/18 [facility] 14.5 2019 [facility] HEMATOLOGY Platelet 161 133 - 450 08/18 [facility] /2018 [facility] HEMATOLOGY MCHC 34.6 32.0 - 08/18 [place] 36.0 [facility] HEMATOLOGY MCH 32.1 27.0 - 08/18 [place] 31.0 [facility] PARATHYROID Ca Norm WB 1.05 1.05 - 08/18 [facility] PROFILE 1. [facility] PARATHYROID Ca Ion WB 1.06 1.05 - 08/18 [facility] PROFILE 1. [facility] HEMATOLOGY Monocytes # 0.9 0.0 - 0.8 08/17 [facility] /2019 [facility] HEMATOLOGY Eosinophils 0.2 0.0 - 0.5 08/17 [facility] HEMATOLOGY Lymphocytes 5.1 1.0 - 5.5 08/17 [place] # /2019 [facility] HEMATOLOGY Basophils # 0.1 0.0 - 0.2 08/17 [facility] s /2019 [facility] HEMATOLOGY Monocytes 7.6 2.0 - 12.0 08/17 [facility] /2019 [facility] HEMATOLOGY Segs 44.9 45.0 - 08/17 [place] 75.0 2019 [facility] HEMATOLOGY Lymphocytes 44.2 20.0 - 08/17 [place] 40.0 2019 [facility] HEMATOLOGY Basophils 1.3 0.0 - 1.0 08/17 [facility] /2019 [facility] HEMATOLOGY Eosinophils 2.0 0.0 - 4.0 08/17 [place] [facility] HEMATOLOGY Neutrophils 5.2 1.5 - 8.1 08/17 [facility] # /2019 [facility] ELECTROLYTE AGAP 11.9 10.0 - 08/16 [place] S 20.0 /2019 Medical Center ELECTROLYTE eGFR 64 08/16 Result [facility] Comment: The Medical eGFR is Center [...] Sodium Lvl 142 135 - 145 08/16 [facility] ELECTROLYTE Potassium 3.9 3.5 - 5.1 08/16 [facility]2018 [facility] ELECTROLYTE Chloride Lvl 104 95 - 109 08/16 [facility] ELECTROLYTE CO2 30 24 - 32 08/16 [facility]2018 [facility] ELECTROLYTE Calcium Lvl 9.6 8.5 - 10.5 08/16 [place] 2018 [facility] ELECTROLYTE BUN 16 7 - 22 08/[address] ELECTROLYTE Glucose Lvl 121 70 - 99 08/16 [facility]2018 [facility] ELECTROLYTE Creatinine 0.91 0.50 - 08/16 [facility] Lvl 1.40 [facility] HEMATOLOGY RBC Morph Normal 08/16 [facility] (08/16/18 3:35 PM) [facility] HEMATOLOGY Plt Morph Normal 08/16 [facility] (08/16/18 3:35 PM) [facility] HEMATOLOGY PTT 32.0 22.9 - 08/16 [facility] 35.8 [facility] HEMATOLOGY PT 12.6 12.0 - 08/16 [facility] 14.7 [facility] HEMATOLOGY INR 0.96 0.85 - 08/16 [facility] 1.17 [facility] BEDSIDE Gluc POC 148.0 65 - 110 03/25 [place] <sup>1</sup>I [facility] GLUCOSE Lifscn nterpretive Medical TESTING Data: Center Upper Reportable Limit: 200 mg/dL. BEDSIDE Comment1 Notify 03/25 NA [facility] GLUCOSE RN/MD Medical TESTING Center BEDSIDE Comment1 Notify 03/25 NA [facility] GLUCOSE RN/MD Medical TESTING Center BEDSIDE Gluc POC 140.0 65 - 110 03/25 [place] <sup>2</sup>I [facility] GLUCOSE Lifscn nterpretive Medical TESTING Data: Center Upper Reportable Limit: 200 mg/dL. BEDSIDE Comment1 Notify 03/25 NA [place] GLUCOSE RN/MD Medical TESTING Center BEDSIDE Gluc POC 137.0 65 - 110 03/25 [place] <sup>3</sup>I [facility] GLUCOSE Lifscn nterpretive Medical TESTING Data: Center Upper Reportable Limit: 200 mg/dL. CHEMISTRY Globulin 3.3 2.0 - 4.0 03/25 Normal [facility] Center CHEMISTRY Total 5.4 6.4 - 8.4 03/25 LOW Medical Center CHEMISTRY Albumin Lvl 2.1 3.5 - 5.0 03/25 LOW Medical Center CHEMISTRY ALT 131.0 0 - 65 03/25 [facility] Medical Center CHEMISTRY Alk Phos 360.0 [...] on the clinical recommendatio ns of the [place] [employer]. CHEMISTRY BUN 21.0 7 - 22 03/25 Normal [facility] Center CHEMISTRY Creatinine 1.7 0.5 - 1.4 03/25 [place] Lvl [facility] Center CHEMISTRY AGAP 18.1 10.0 - 03/25 [...] 03/24 Normal [facility] Center CHEMISTRY Bili 0.2 0.0 - 1.0 03/24 Normal [place] Indirect [facility] Center CHEMISTRY Globulin 3.2 2.0 - 4.0 03/24 Normal Medical Center CHEMISTRY Total 5.6 6.4 - 8.4 03/24 LOW [place] [facility] CHEMISTRY Albumin Lvl 2.4 3.5 - 5.0 03/24 LOW Medical Center CHEMISTRY Bili Direct 0.2 0.0 - 0.3 03/24 Normal [facility] Center CHEMISTRY AST 345.0 0 - 37 [...] 8.5 - 10.5 03/24 [place] [facility] CHEMISTRY Sodium Lvl 142.0 135 - 145 03/24 Normal [facility] CHEMISTRY BUN 23.0 7 - 22 03/24 [place] [facility] CHEMISTRY Creatinine 1.7 0.5 - 1.4 03/24 HI [facility] Lvl [facility] CHEMISTRY Glucose Lvl 119.0 03/24 NA <sup>5</sup>I [place] nterpretive Medical Data: Center Reference Ranges : 0 - 7 days : 41 - 90 mg/dL 7 days - 150 yrs : 70 - 99 mg/dL (fasting), based on the clinical recommendatio ns of the [place] [employer]. HEMATOLOGY PT 14.8 12.0 - 03/24 [facility] [place] 14.7 [facility] HEMATOLOGY INR 1.16 0.85 - 03/24 Normal [...] 0.0 - 0.2 03/24 [place] [facility] HEMATOLOGY Segs-Bands # 4.1 1.5 - 8.1 03/24 Normal [place] [facility] Center HEMATOLOGY Lymphocytes 2.8 1.0 - 5.5 03/24 [place] # [facility] Center HEMATOLOGY Monocytes # 0.8 0.0 - 0.8 03/24 [place] [facility] HEMATOLOGY Eosinophils 1.8 0.0 - 0.5 03/24 [facility] [place] # [facility] Center HEMATOLOGY Lymphocytes 28.5 20.0 - 03/24 Normal [place] 40.0 [facility] HEMATOLOGY Monocytes 8.6 2.0 - 12.0 03/24 Normal [facility] HEMATOLOGY Eosinophils 19.0 0.0 - 4.0 03/24 [place] [facility] HEMATOLOGY Basophils 1.3 0.0 - 1.0 03/24 [facility] Medical Center HEMATOLOGY Segs 42.6 45.0 - 03/24 [facility] [place] 75.0 /2010 Medical Center HEMATOLOGY WBC 9.7 3.7 - 10.4 03/24 Normal [facility] Center HEMATOLOGY RBC 3.67 4.20 - 03/24 [facility] [place] 5.40 /2010 Medical Center HEMATOLOGY MCHC 34.9 32.0 - 03/24 [facility] [place] 36.0 Medical Center HEMATOLOGY RDW 15.1 11.5 - 03/24 [facility] [place] 14.5 /2010 Medical Center HEMATOLOGY Platelet 169.0 133 - 450 03/24 Normal [facility] HEMATOLOGY MCV 90.5 81.0 - 03/24 [facility] 99.0 Medical [place] HEMATOLOGY MCH 31.6 27.0 - 03/24 [facility] [place] 31.0 [facility] Center HEMATOLOGY MPV 9.5 7.4 - 10.4 03/24 Normal [facility] HEMATOLOGY Hgb 11.6 12.0 - 03/24 [facility] [place] 16.0 [facility] Center HEMATOLOGY Hct 33.2 36.0 - 03/24 [facility] [place] 48.0 [facility] Center IMMUNOLOGY Hep Bs Ag Negative >Negative 03/24 NA [facility] *NA* /2010 Medical (03/24/2011 05:08:00) ?? Center CHEMISTRY Amylase Lvl 36.0 25 - 115 03/23 Normal [facility] Center CHEMISTRY Lipase Lvl 242.0 73 - 393 03/23 Normal [facility] Center CHEMISTRY Glucose Lvl 97.0 03/23 NA <sup>6</sup>I [place] nterpretive Medical Data: Center Reference Ranges : 0 - 7 days : 41 - 90 mg/dL 7 days - 150 yrs : 70 - 99 mg/dL (fasting), based on the clinical recommendatio ns of the [employer]. CHEMISTRY BUN 22.0 7 - 22 03/23 Normal [facility] Center CHEMISTRY Creatinine 1.5 0.5 - 1.4 03/23 [facility] Medical Center CHEMISTRY CO2 20.0 24 [...] 4.20 - 10/23 LOW [place] 5.40 /2010 [facility] HEMATOLOGY Large Plt Slight >None Seen 03/23 ABN [place] *ABN* Medical (03/23/2011 05:24:00) ?? Center HEMATOLOGY Lymphocytes 2.1 1.0 - 5.5 03/23 [place] # [facility] HEMATOLOGY Segs-Bands # 2.7 1.5 - 8.1 03/23 Normal [place] as [facility] HEMATOLOGY Monocytes # 0.9 0.0 - 0.8 03/23 [place] [facility] HEMATOLOGY Plt Morph Normal 03/23 Normal [facility] (03/23/2011 05:24:00) ?? [facility] HEMATOLOGY Eosinophils 15.0 0.0 - 4.0 03/23 [facility] [place] [facility] HEMATOLOGY Atypical 0.0 <<=0.0 03/23 Normal [facility] Lymphs [facility] HEMATOLOGY Bands 1.0 0.0 - 11.0 03/23 Normal [facility] HEMATOLOGY Basophils 1.0 0.0 - 1.0 03/23 Normal [facility] HEMATOLOGY Eosinophils 1.0 0.0 - 0.5 03/23 [facility] [place] [facility] HEMATOLOGY Lymphocytes 31.0 20.0 - 03/23 Normal [place] 40.0 [facility] HEMATOLOGY Monocytes 13.0 2.0 - 12.0 03/23 [facility] [place] [facility] HEMATOLOGY Segs 39.0 45.0 - 03/23 LOW [place] 75.0 [facility] HEMATOLOGY Basophils # 0.1 0.0 - 0.2 03/23 [place] [facility] IMMUNOLOGY Prealbumin 10.0 18.0 - 03/23 LOW [place] 45.0 [facility] Center URINALYSIS UA ?? 0.1 - 1.0 03/22 NA [facility] Urobilinogen [facility] URINALYSIS UA Hyal Cast 3.0 0 - 2 03/22 [facility] [place] [facility] URINALYSIS UA Amorph Occasional /HPF >None Seen 03/22 NA [facility] [place] *NA* Medical (03/22/2011 17:20:00) ?? [...] Center URINALYSIS UA Blood Moderate >Negative 03/22 [facility] *ABN* Medical (03/22/2011 17:20:00) ?? Center URINALYSIS UA Glucose Negative mg/dL >Negative 03/22 NA [facility] *NA* Medical (03/22/2011 17:20:00) ?? Center URINALYSIS [...] IMMUNOLOGY Hep B Core Negative >Negative 03/22 [facility] [place] IgM *NA* Medical (03/22/2011 09:40:00) ?? Center IMMUNOLOGY Hep C Ab Negative >Negative 03/22 NA [place] *NA* Medical (03/22/2011 09:40:00) ?? Center IMMUNOLOGY Hep Bs Ag See Note 9 >Negative 03/22 Normal <sup>9</sup>R [facility] (03/22/2011 09:40:00) ?? esult Medical Comment: [facility] Center Talked to Nyasia Mcdaniels Nurse will recollect in the morning 03/23/2011 16:39 RG CHEMISTRY T4 Free 1.67 0.76 - 03/22 [facility] [place] 1.46 Medical Center CHEMISTRY TSH 0.044 0.360 - 03/22 [facility] [place] 3.740 Medical Center BEDSIDE Comment1 Sliding 03/15 NA [facility] GLUCOSE Scale Medical TESTING Center BEDSIDE Gluc POC 152.0 65 - 110 03/15 [place] <sup>1</sup>I [facility] GLUCOSE Lifsc nterpretive Medical TESTING Data: Center Upper Reportable Limit: 200 mg/dL. BEDSIDE Comment1 Notify 03/15 [facility] GLUCOSE RN/MD Medical TESTING Center BEDSIDE Gluc POC 116.0 65 - 110 03/15 [place] <sup>2</sup>I [facility] GLUCOSE Lifscn nterpretive Medical TESTING Data: Center Upper Reportable Limit: 200 mg/dL. CHEMISTRY AGAP 18.5 10.0 - 03/15 Normal [place] 20.0 Medical Center CHEMISTRY Potassium 3.5 3.5 - 5.1 03/15 Normal [place] Lvl Medical Center CHEMISTRY CO2 21.0 24 - 32 03/15 LOW [place] [facility] CHEMISTRY Sodium Lvl 147.0 135 - 145 03/15 [facility] [place] [facility] CHEMISTRY Creatinine 1.4 0.5 - 1.4 03/15 Normal [place] Lvl Medical Center CHEMISTRY Chloride Lvl 111.0 95 - 109 03/15 [facility] [place] [facility] CHEMISTRY Calcium Lvl 8.1 8.5 - 10.5 03/15 [place] [facility] [place] CHEMISTRY Glucose Lvl 97.0 03/15 NA <sup>12</sup> [place] Interpretive Medical Data: Center Reference Ranges : 0 - 7 days : 41 - 90 mg/dL 7 days - 150 yrs : 70 - 99 mg/dL (fasting), based on the clinical recommendatio ns of the [place] [employer]. CHEMISTRY BUN 21.0 7 - 22 03/15 Normal [place] [facility] Center CHEMISTRY Magnesium 1.7 1.8 - 2.4 03/15 LOW [place] Lvl /2010 Medical Center HEMATOLOGY Lymphocytes 16.7 20.0 - 03/15 LOW [place] 40.0 /2010 Medical Center HEMATOLOGY Monocytes 12.4 2.0 - 12.0 03/15 [facility] [place] [facility] HEMATOLOGY Segs 63.3 45.0 - 03/15 Normal [place] 75.0 Medical Center HEMATOLOGY Eosinophils 0.6 0.0 - 0.5 03/15 [facility] [place] # [facility] [place] HEMATOLOGY Monocytes # 1.1 0.0 - 0.8 03/15 [facility] [place] [facility] [place] HEMATOLOGY Basophils # 0.1 0.0 - 0.2 03/15 [place] [facility] [place] HEMATOLOGY Lymphocytes 1.5 1.0 - 5.5 03/15 [place] # [facility] [place] HEMATOLOGY Segs-Bands # 5.8 1.5 - 8.1 03/15 Normal [place] [facility] HEMATOLOGY Basophils 1.3 0.0 - 1.0 03/15 [facility] [place] [facility] HEMATOLOGY Eosinophils 6.3 0.0 - 4.0 03/15 [facility] [place] [facility] [place] HEMATOLOGY MCH 31.6 27.0 - 03/15 [facility] [place] 31.0 /2010 Medical Center HEMATOLOGY [...] Medical Center BEDSIDE Comment1 Notify 03/15 NA [facility] GLUCOSE RN/MD /2010 Medical TESTING Center BEDSIDE Gluc POC 126.0 65 - 110 03/15 [place] <sup>3</sup>I [facility] GLUCOSE Lifscn nterpretive Medical TESTING Data: Center Upper Reportable Limit: 200 mg/dL. BEDSIDE Comment2 Sliding 03/14 NA [facility] GLUCOSE Scale Medical TESTING Center BEDSIDE Comment2 Sliding 03/14 NA [facility] GLUCOSE Scale Medical TESTING Center CHEMISTRY T4 Free 2.0 0.76 - 03/14 HI [place] 1.46 Medical Center CHEMISTRY TSH 0.042 0.360 - 03/14 LOW [facility] 3.740 Medical Center CHEMISTRY Total CK 31.0 12 - 191 03/14 Normal Medical Center CHEMISTRY Lactic Acid 1.6 0.5 - 2.2 03/14 Normal [facility] Lvl /2010 Medical Center HEMATOLOGY INR [...] 3.8 3.5 - 5.1 03/14 Normal <sup>5</sup>R [facility] esult Medical Comment: Center Collection date/time has been modified to: 01:50:00. Previous collection date/time: 01:50:00. CHEMISTRY BUN 20.0 7 - 22 03/14 Normal <sup>10</sup> Result Medical Comment: Center Collection date/time has been modified to: 01:50:00. Previous collection date/time: 01:50:00. CHEMISTRY Creatinine 1.4 0.5 - 1.4 03/14 Normal <sup>9</sup>R [facility] esult Medical Comment: Center Collection date/time has been modified to: 01:50:00. Previous collection date/time: 01:50:00. CHEMISTRY Glucose Lvl 91.0 03/14 NA <sup>13</sup> [facility] Result Medical Comment: Center Collection date/time has been modified to: 01:50:00. Previous collection date/time: 01:50:00.<br/ ><sup>14</sup >Interpretive Data: Reference Ranges : 0 - 7 days : 41 - 90 mg/dL 7 days - 150 yrs : 70 - 99 mg/dL (fasting), based on the clinical recommendatio ns of the [place] [employer].< br/><sup>15</ sup>Interpret kimberly Data: Reference Ranges : 0 - 7 days : 41 - 90 mg/dL 7 days - 150 yrs : 70 - 99 mg/dL (fasting), based on the clinical recommendatio ns of the [place] [employer]. CHEMISTRY Magnesium 1.2 1.8 - [...] Slight 52 >None Seen 03/14 ABN <sup>52</sup> [facility] *ABN* Result Medical (03/14/2011 01:50:00) ?? Comment : Center Collection date/time has been modified to: 01:50:00. Previous collection date/time: 01:50:00. HEMATOLOGY Virgil Cell Slight 51 >None Seen 03/14 ABN <sup>51</sup> [facility] *ABN* Result Medical (03/14/2011 01:50:00) ?? Comment : Center Collection date/time has been modified to: 01:50:00. Previous collection date/time: 01:50:00. HEMATOLOGY Anisocyte 1+ 49 >None Seen 03/14 ABN <sup>49</sup> [facility] *ABN* /2010 Result Medical (03/14/2011 01:50:00) ?? Comment : Center Collection date/time has been modified to: 01:50:00. Previous collection date/time: 01:50:00. HEMATOLOGY Polychrom Slight 50 >None Seen 03/14 Normal <sup>50</sup> [facility] (03/14/2011 01:50:00) ?? /2010 Result Medical [...] AST 27.0 0 - 37 03/13 Normal [facility] CHEMISTRY Globulin 3.2 2.0 - 4.0 03/13 Normal [facility] CHEMISTRY Albumin Lvl 2.9 3.5 - 5.0 03/13 LOW [facility] CHEMISTRY ALT 32.0 0 - 65 03/13 Normal [facility] CHEMISTRY Total 6.1 6.4 - 8.4 03/13 LOW Protein [facility] CHEMISTRY A/G Ratio 0.9 0.7 - 1.6 03/13 Normal Medical Center CHEMISTRY Bili 0.3 0.0 - 1.0 03/13 Normal [facility] Center CHEMISTRY Bili Total 0.4 0.2 - 1.3 03/13 Normal Medical Center CHEMISTRY Bili Direct 0.1 0.0 - 0.3 03/13 Normal [facility] Center CHEMISTRY Alk Phos 103.0 39 - 136 03/13 Normal Medical Center BEDSIDE Gluc POC 197.0 65 - 110 03/07 [place] <sup>1</sup>I [facility] GLUCOSE Lifsc nterpretive Medical TESTING Data: Center Upper Reportable Limit: 200 mg/dL. BEDSIDE Comment1 Notify 03/07 NA [facility] GLUCOSE RN/MD Medical TESTING Center BEDSIDE Comment2 Sliding 03/07 NA [facility] GLUCOSE Scale Medical TESTING Center BEDSIDE Gluc POC 112.0 65 - 110 03/07 [place] <sup>2</sup>I [facility] GLUCOSE Lifvt nterpretive Medical TESTING Data: Center Upper Reportable Limit: 200 mg/dL. BEDSIDE Comment1 Notify 03/07 NA [facility] GLUCOSE RN/MD Medical TESTING Center BEDSIDE Comment2 Sliding 03/07 NA [facility] GLUCOSE Scale Medical TESTING Center BEDSIDE Comment1 Notify 03/07 NA [facility] GLUCOSE RN/MD Medical TESTING Center BEDSIDE Gluc POC 180.0 65 - 110 03/07 [place] <sup>3</sup>I [facility] GLUCOSE Lifsc nterpretive Medical TESTING Data: Center Upper Reportable Limit: 200 mg/dL. BEDSIDE Comment2 Sliding 03/06 NA [facility] GLUCOSE Scale Medical TESTING Center CHEMISTRY [...] Potassium 3.8 3.5 - 5.1 03/[address] [facility] CHEMISTRY Calcium Lvl 8.4 8.5 - 10.5 10/ [place] [facility] [place] CHEMISTRY AGAP 15.8 10.0 - 10 Normal [place] 20.0 Medical Center CHEMISTRY CO2 25.0 24 - 32 10/ Normal [facility] Center CHEMISTRY BUN 16.0 7 - 22 10 Normal Medical Center CHEMISTRY Creatinine 0.9 0.5 - 1.4 10 Normal [facility] Lvl Medical Center CHEMISTRY Glucose Lvl 77.0 10 NA <sup>5</sup>I [place] nterpretive Medical Data: Center Reference Ranges : 0 - 7 days : 41 - 90 mg/dL 7 days - 150 yrs : 70 - 99 mg/dL (fasting), based on the clinical recommendatio ns of the [place] [employer]. HEMATOLOGY Segs 45.6 45.0 - 03/05 Normal [place] 75.0 /2010 Medical Center HEMATOLOGY Monocytes 10.4 2.0 - 12.0 10 Normal [facility] HEMATOLOGY Eosinophils 3.5 0.0 - 4.0 10 [place] [facility] Center HEMATOLOGY Lymphocytes 38.5 20.0 - 10 Normal [place] 40.0 Medical Center HEMATOLOGY Eosinophils 0.4 0.0 - 0.5 10 [place] # [facility] Center HEMATOLOGY Basophils # 0.2 0.0 - 0.2 10 [place] [facility] Center HEMATOLOGY Basophils 2.0 0.0 - 1.0 10 HI Medical [place] HEMATOLOGY Segs-Bands # 5.8 1.5 - 8.1 [...] HEMATOLOGY WBC 12.7 3.7 - 10.4 10 [facility] Medical Center HEMATOLOGY MCH 32.0 27.0 - 10 [facility] [place] 31.0 Medical Center HEMATOLOGY Hct 28.5 36.0 - 10 LOW [place] 48.0 Medical Center HEMATOLOGY MCHC 34.6 32.0 - 10 Normal [place] 36.0 Medical Center HEMATOLOGY Platelet 221.0 133 - 450 03/05 Normal Medical Center HEMATOLOGY RDW 16.5 11.5 - 03/05 [facility] [place] 14. Medical Center HEMATOLOGY MPV 9.1 7.4 - 10.4 10 Normal Medical Center HEMATOLOGY Platelet 270.0 133 - 450 03/03 Normal Medical Center HEMATOLOGY RDW 16.4 11. - 03/03 [facility] [place] 14. Medical Center HEMATOLOGY MCHC 33.6 32.0 - 10 Normal [place] 36.0 Medical Center HEMATOLOGY MCH 31.8 27.0 - 03/03 [facility] [place] 31.0 Medical Center HEMATOLOGY WBC 12.4 3.7 - 10.4 10 [place] [facility] HEMATOLOGY MPV 9.4 7.4 - 10.4 10 Normal Medical Center HEMATOLOGY MCV 94.6 81.0 - 10 [facility] [place] 99.0 Medical Center HEMATOLOGY Hct 30.8 36.0 - 10 [facility] [place] 48.0 Medical Center HEMATOLOGY Hgb 10.4 12.0 - 10 [facility] [place] 16.0 Medical Center HEMATOLOGY RBC 3.25 4.20 - 10 [facility] [place] . Medical Center HEMATOLOGY RDW 16.0 11.5 - 03/02 [facility] [place] 14. Medical Center HEMATOLOGY MPV 9.1 7.4 - 10.4 03/02 Normal Medical Center HEMATOLOGY Platelet 283.0 133 - 450 03/02 Normal Medical Center HEMATOLOGY RBC 3.23 4.20 - 10 [facility] [place] 5.40 Medical Center HEMATOLOGY MCV 94.5 81.0 - 10/ Normal [place] 99.0 Medical Center HEMATOLOGY Hct 30.5 36.0 - 10 [facility] [place] 48.0 Medical Center HEMATOLOGY Hgb 10.3 12.0 - 10 LOW [place] 16.0 /2010 Medical Center HEMATOLOGY MCHC 33.6 32.0 - 03/02 Normal [place] 36.0 /2010 Medical Center HEMATOLOGY WBC 12.7 3.7 - 10.4 10 [place] [facility] HEMATOLOGY MCH 31.8 27.0 - 03/02 HI [place] 31.0 /2010 Medical Center URINALYSIS UA ?? 0.1 - 1.0 03/01 NA [facility] Urobilinogen /2010 Medical Center URINALYSIS UA Turbidity Clear >Clear 03/01 Normal [facility] (03/01/2011 15:38:00) ?? Medical Center URINALYSIS UA Spec Grav 1.009 <<=1.030 03/01 [place] [facility] [place] URINALYSIS UA Color Yellow >Yellow 03/01 NA [facility] * Medical (03/01/2011 15:38:00) ?? Center URINALYSIS UA pH 5.5 5.0 - 8.0 03/01 Normal [facility] URINALYSIS UA Ketones Negative mg/dL >Negative 03/01 [facility] Medical (03/01/2011 15:38:00) ?? Center URINALYSIS UA Glucose Negative mg/dL >Negative 03/01 [facility] Medical (03/01/2011 15:38:00) ?? Center URINALYSIS UA Bili Negative >Negative 03/01 NA [facility] Medical (03/01/2011 15:38:00) ?? Center URINALYSIS UA Blood Negative >Negative 03/01 Normal [facility] (03/01/2011 15:38:00) ?? Medical Center URINALYSIS UA WBC <1.0 0 - 5 03/01 Normal Medical Center URINALYSIS UA Nitrite Negative >Negative 03/01 Normal [place] (03/01/2011 15:38:00) ?? Medical Center URINALYSIS UA Leuk Est Negative >Negative 03/01 Normal [place] (03/01/2011 15:38:00) ?? Medical Center URINALYSIS UA Mucus Few /LPF >None Seen 03/01 NA [facility] *NA* Medical (03/01/2011 15:38:00) ?? Center URINALYSIS UA Sq Epi Moderate /LPF >Few 03/01 [place] *[place]N* Medical (03/01/2011 15:38:00) ?? Center URINALYSIS UA Hyal Cast 1.0 0 - 2 03/01 Normal [facility] URINALYSIS UA Protein 10 mg/dL >Negative 03/01 [place] *[place] Medical (03/01/2011 15:38:00) ?? Center Microbiolog Culture: 03/01 y Urine [facility] HEMATOLOGY Lymphocytes 5.7 1.0 - 5.5 02/28 [place] # [facility] HEMATOLOGY Segs-Bands # 4.8 1.5 - 8.1 02/28 Normal [facility] HEMATOLOGY Basophils 1.0 0.0 - 1.0 02/28 Normal [facility] HEMATOLOGY Monocytes 8.9 2.0 - 12.0 02/28 Normal [facility] HEMATOLOGY Eosinophils 2.8 0.0 - 4.0 02/28 [place] [facility] HEMATOLOGY Lymphocytes 47.3 20.0 - 02/28 HI [place] 40.0 Medical Center HEMATOLOGY Segs 40.0 45.0 - 02/28 LOW [place] 75.0 Medical Center HEMATOLOGY Basophils # 0.1 0.0 - 0.2 02/28 Normal s [facility] Center HEMATOLOGY Monocytes # 1.1 0.0 - 0.8 02/28 [place] [facility] Center HEMATOLOGY Eosinophils 0.3 0.0 - 0.5 02/28 [place] [facility] Center CHEMISTRY Globulin 2.8 2.0 - 4.0 02/27 Normal [facility] Center CHEMISTRY B/C Ratio 14.0 6 - 25 02/27 Normal [facility] Center CHEMISTRY AGAP 13.8 10.0 - 02/27 Normal [place] 20.0 [facility] Center CHEMISTRY A/G Ratio 0.8 0.7 - 1.6 02/27 Normal [facility] CHEMISTRY Total 5.0 6.4 - 8.4 02/27 LOW [facility] CHEMISTRY Calcium Lvl 8.4 8.5 - 10.5 02/27 LOW Medical Center CHEMISTRY ALT 24.0 0 - 65 02/27 Normal [facility] CHEMISTRY Albumin Lvl 2.2 3.5 - 5.0 02/27 LOW [facility] CHEMISTRY Bili Total 0.3 0.2 - 1.3 02/27 Normal [facility] CHEMISTRY AST 21.0 0 - 37 02/27 Normal [facility] CHEMISTRY Alk Phos 98.0 39 - 136 02/27 Normal [facility] Center CHEMISTRY CO2 28.0 24 - 32 02/27 Normal [facility] CHEMISTRY BUN 10.0 7 - 22 02/27 Normal [facility] CHEMISTRY Potassium 3.8 3.5 - 5.1 02/[address] [facility] CHEMISTRY Sodium Lvl 143.0 135 - 145 02/27 Normal [facility] CHEMISTRY Creatinine 0.7 0.5 - 1.4 02/[address] [facility] Medical [place] CHEMISTRY Glucose Lvl 119.0 02/27 NA <sup>6</sup>I [place] nterpretive Medical Data: Center Reference Ranges : 0 - 7 days : 41 - 90 mg/dL 7 days - 150 yrs : 70 - 99 mg/dL (fasting), based on the clinical recommendatio ns of the [place] [employer]. CHEMISTRY Chloride Lvl 105.0 95 - 109 02/27 Normal [facility] HEMATOLOGY Monocytes # 0.9 0.0 - 0.8 02/27 [facility] HEMATOLOGY Eosinophils 0.3 0.0 - 0.5 02/27 [place] [facility] HEMATOLOGY Lymphocytes 3.3 1.0 - 5.5 02/27 [place] [facility] [place] HEMATOLOGY Basophils # 0.1 0.0 - 0.2 02/27 Normal [facility] HEMATOLOGY Basophils 1.2 0.0 - 1.0 02/27 [facility] HEMATOLOGY Segs-Bands # 6.0 1.5 - 8.1 02/27 Normal Medical [place] HEMATOLOGY Monocytes 8.3 2.0 - 12.0 02/27 Normal [facility] HEMATOLOGY Eosinophils 3.1 0.0 - 4.0 09/29 Normal [facility] HEMATOLOGY Segs 56.6 45.0 - 02/27 Normal [facility] 75.0 Medical Center HEMATOLOGY Lymphocytes 30.8 20.0 - 02/27 Normal [facility] 40.0 Medical Center BEDSIDE Gluc POC 207.0 65 - 110 02/26 [place] <sup>1</sup>I [facility] GLUCOSE nterpretive Medical TESTING Data: Center Upper Reportable Limit: 200 mg/dL. BEDSIDE Comment1 Notify 02/26 NA [facility] GLUCOSE RN/MD /2010 Medical TESTING Center BEDSIDE Comment1 Notify 02/26 NA [facility] GLUCOSE RN/MD /2010 Medical TESTING Center BEDSIDE Gluc POC 155.0 65 - 110 02/26 [place] <sup>2</sup>I [facility] GLUCOSE [facility] nterpretive Medical TESTING Data: Center Upper Reportable Limit: 200 mg/dL. BEDSIDE Gluc POC 140.0 65 - 110 02/26 [place] <sup>3</sup>I [facility] GLUCOSE [facility] nterpretive Medical TESTING Data: Center Upper Reportable Limit: 200 mg/dL. CHEMISTRY AGAP 15.6 10.0 - 02/26 Normal [facility] 20.0 [facility] Center CHEMISTRY CO2 25.0 24 - 32 02/26 Normal [facility] Center CHEMISTRY Calcium Lvl 7.9 8.5 - 10.5 02/26 LOW [facility] Center CHEMISTRY Sodium Lvl 142.0 135 - 145 02/26 Normal [facility] CHEMISTRY Potassium 3.6 3.5 - 5.1 02/[address] [facility] Center CHEMISTRY Creatinine 0.5 0.5 - 1.4 02/[address] [facility] Center CHEMISTRY Chloride Lvl 105.0 95 - 109 02/26 Normal [facility] Center CHEMISTRY BUN 9.0 7 - 22 02/26 Normal [facility] Center CHEMISTRY Glucose Lvl 120.0 02/26 NA <sup>4</sup>I T ex nterpretive Medical Data: Center Reference Ranges : 0 - 7 days : 41 - 90 mg/dL 7 days - 150 yrs : 70 - 99 mg/dL (fasting), based on the clinical recommendatio ns of the [employer]. HEMATOLOGY Hgb 10.5 12.0 - 02/26 LOW [place] 16.0 Medical Center HEMATOLOGY Hct 31.2 36.0 - 02/26 LOW [facility] 48.0 Medical Center BEDSIDE Comment1 Notify 02/26 NA [facility] GLUCOSE RN/MD Medical TESTING Center CHEMISTRY Magnesium 1.9 1.8 - 2.4 02/24 Normal [facility] Medical Center CHEMISTRY Calcium Lvl 7.9 8.5 - 10.5 02/24 [place] [facility] CHEMISTRY Chloride Lvl 106.0 95 - 109 02/24 Normal Medical Center CHEMISTRY CO2 24.0 24 - 32 02/24 Normal Medical Center CHEMISTRY Sodium Lvl 142.0 135 - 145 02/24 Normal Medical Center CHEMISTRY Creatinine 0.6 0.5 - 1.4 02/24 Normal [facility] Medical Center CHEMISTRY BUN 12.0 7 - 22 02/24 Normal Medical Center CHEMISTRY Glucose Lvl 89.0 02/24 NA <sup>5</sup>I T ex nterpretive Medical Data: Center Reference Ranges : 0 - 7 days : 41 - 90 mg/dL 7 days - 150 yrs : 70 - 99 mg/dL (fasting), based on the clinical recommendatio ns of the [employer]. CHEMISTRY Potassium 3.7 3.5 - 5.1 02/24 Normal [facility] Center CHEMISTRY AGAP 15.7 10.0 - 02/24 [facility] 20.0 Medical Center HEMATOLOGY Hct 30.7 36.0 - 02/[address] [facility] 48.0 Medical Center HEMATOLOGY Hgb 10.3 12.0 - 02/[address] [facility] 16.0 Medical Center HEMATOLOGY Sed Rate 105.0 0 - 20 02/24 [place] [facility] CHEMISTRY Magnesium 1.7 1.8 - 2.4 02/21 LOW [facility] Medical Center CHEMISTRY Ca Norm mgdL 4.64 4.65 - 02/[address] [facility] 5. Medical Center CHEMISTRY Ca Ion 1.1 1.16 - 02/[address] [facility] 1. Medical Center CHEMISTRY Ca Norm 1.16 1.16 - 02/21 Normal [facility] 1.30 Medical Center CHEMISTRY Ca Ion mgdL 4.4 4.65 - 02/21 LOW [place] 5.20 /2010 Medical Center CHEMISTRY AGAP 16.9 10.0 - 02/21 Normal [place] 20.0 Medical Center CHEMISTRY BUN 6.0 7 - 22 02/21 LOW [facility] Center CHEMISTRY Creatinine 0.4 0.5 - 1.4 02/21 LOW [facility] Lvl Medical Center CHEMISTRY Glucose Lvl 154.0 02/21 NA <sup>6</sup>I [place] nterpretive Medical Data: Center Reference Ranges : 0 - 7 days : 41 - 90 mg/dL 7 days - 150 yrs : 70 - 99 mg/dL (fasting), based on the clinical recommendatio ns of the [employer]. CHEMISTRY Potassium 4.9 3.5 - 5.1 02/21 Normal [facility] Lvl Medical Center CHEMISTRY Sodium Lvl 138.0 135 - 145 02/21 Normal [facility] Center CHEMISTRY Calcium Lvl 7.7 8.5 - 10.5 02/21 LOW Medical Center CHEMISTRY Chloride Lvl 107.0 95 - 109 02/21 Normal [facility] Center CHEMISTRY CO2 19.0 24 - 32 02/21 LOW [facility] Center CHEMISTRY Phosphorus 3.7 2.5 - 4.5 02/21 Normal [facility] Center HEMATOLOGY Eosinophils 0.6 0.0 - 0.5 02/21 [facility] [place] # [facility] HEMATOLOGY Monocytes # 0.9 0.0 - 0.8 02/21 [facility] [place] [facility] HEMATOLOGY Basophils # 0.0 0.0 - 0.2 02/21 Normal [place] [facility] HEMATOLOGY Eosinophils 6.9 0.0 - 4.0 02/21 [facility] [place] [facility] HEMATOLOGY Monocytes 9.6 2.0 - 12.0 02/21 Normal [facility] HEMATOLOGY Segs-Bands # 5.2 1.5 - 8.1 02/21 Normal Medical [place] HEMATOLOGY Basophils 0.3 0.0 - 1.0 02/21 Normal [facility] Center HEMATOLOGY Lymphocytes 2.3 1.0 - 5.5 [...] Center HEMATOLOGY MCH 32.7 27.0 - 02/21 [facility] [place] 31.0 Medical Center HEMATOLOGY RBC [...] Ca Norm mgdL 4.08 4.65 - 02/19 [facility] [place] 5. Medical Center CHEMISTRY Ca Ion mgdL 4.12 4.65 - 02/19 LOW [place] 5.20 Medical Center CHEMISTRY Ca Ion 1.03 1.16 - 02/19 LOW [place] 1.30 Medical Center CHEMISTRY AST 66.0 0 - 37 02/19 [facility] Medical Center CHEMISTRY Bili Total 0.8 0.2 - 1.3 02/19 Normal Medical Center CHEMISTRY Albumin Lvl 2.3 3.5 - 5.0 02/19 LOW Medical Center CHEMISTRY Total 4.8 6.4 - 8.4 02/19 LOW [place] [facility] CHEMISTRY ALT 67.0 0 - 65 02/19 [facility] Center CHEMISTRY Globulin 2.5 2.0 - 4.0 02/19 Normal [facility] CHEMISTRY A/G Ratio 0.9 0.7 - 1.6 02/19 Normal [facility] CHEMISTRY Alk Phos 155.0 39 - 136 02/19 [facility] CHEMISTRY B/C Ratio 20.0 6 - 25 02/19 Normal Medical [place] HEMATOLOGY PTT 29.4 22.9 - 02/19 Normal [...] THERAPY. HEMATOLOGY RBC 3.4 4.20 - 02/19 [facility] [place] 5.40 /2010 [facility] Center HEMATOLOGY MCH 32.2 27.0 - 02/19 [facility] [place] 31.0 [facility] HEMATOLOGY MCV 95.7 81.0 - 02/19 Normal [facility] 99.0 /2010 [facility] HEMATOLOGY MCHC 33.6 32.0 - 02/19 [facility] [place] 36.0 /2010 [facility] HEMATOLOGY RDW 16.7 11.5 - 02/19 [facility] [place] 14.5 [facility] HEMATOLOGY MPV 7.8 7.4 - 10.4 02/19 Normal [facility] Center HEMATOLOGY Platelet 173.0 133 - 450 02/19 Normal [facility] HEMATOLOGY WBC 7.4 3.7 - 10.4 02/19 Normal [facility] HEMATOLOGY Monocytes 8.7 2.0 - 12.0 02/19 Normal [facility] HEMATOLOGY Lymphocytes 15.6 20.0 - 02/19 [facility] [place] 40.0 /2010 [facility] HEMATOLOGY Lymphocytes 1.1 1.0 - 5.5 02/19 [...] 0.6 0.0 - 1.0 02/19 Normal [place] [facility] HEMATOLOGY Segs 69.8 45.0 - 02/19 Normal [place] 75.0 Medical Center HEMATOLOGY Eosinophils 0.4 0.0 - 0.5 02/19 [place] # /2010 [facility] Center HEMATOLOGY Basophils # 0.0 0.0 - 0.2 02/19 [place] [facility] Center CHEMISTRY Lactic Acid 1.1 0.5 - 2.2 02/19 Normal [facility] Lvl /2010 [facility] Microbiolog Culture: 02/19 [facility] y Resistant [facility] Center r Screen Microbiolog Culture: 02/19 [facility] y MRSA /2010 [facility] Center Microbiolog Culture: 02/19 [facility] y Anaerobic [facility] Center Microbiolog Culture: 02/19 [facility] y Aspirate/Bod [facility] Center Fluid/Tissue CHEMISTRY POC A Glu 109.0 65 - 110 02/19 Normal [facility] CHEMISTRY POC A LA 0.6 0.5 - 2.2 02/19 Normal [facility] CHEMISTRY POC A Ca Ion 1.08 1.16 - 02/[address] [facility] 1.30 [facility] CHEMISTRY POC A Na 140.0 135 - 145 02/19 Normal [facility] CHEMISTRY POC A Hct 29.0 36.0 - 02/19 LOW [place] 48.0 [facility] CHEMISTRY POC A K 3.3 3.5 - 5.1 02/19 LOW [facility] CHEMISTRY POC A O2 Sat 100.0 95.0 - 02/19 Normal [facility] 100.0 [facility] CHEMISTRY POC A HCO3 22.0 22 - 26 02/19 Normal [facility] CHEMISTRY POC A BE -4.0 -2-2 - 2 02/19 [facility] CHEMISTRY POC A Source ART 02/19 NA [facility] CHEMISTRY POC A pH 7.33 7.35 - 02/19 LOW [facility] 7. Medical Center CHEMISTRY POC A PCO2 41.0 35 - 45 02/19 Normal Medical Center CHEMISTRY POC A Temp 37.0 02/19 NA [facility] CHEMISTRY POC A PO2 433.0 80 - 100 02/19 [place] [facility] Center Microbiolog Culture: 02/19 [place] Aspirate/Bod Medical y Center Fluid/Tissue Microbiolog Culture: CSF 02/19 [place] w/Gram St[place] /2010 [facility] BODY FLUIDS Protein CSF 39.0 15 - 45 02/19 Normal [facility] BODY FLUIDS Glucose CSF 70.0 45 - 80 02/19 Normal [facility] BODY FLUIDS WBC CSF 1.0 0 - 5 02/19 Normal [facility] BODY FLUIDS Color CSF Light Red >Colorless 02/19 [place] *ABN* Medical (02/19/2011 11:00:00) ?? Center BODY FLUIDS Clarity CSF Slight >Clear 02/19 ABN [place] *ABN* Medical (02/19/2011 11:00:00) ?? Center BODY FLUIDS Supernat CSF Colorless >Colorless 02/19 Normal [facility] (02/19/2011 11:00:00) ?? [facility] Center BODY FLUIDS RBC CSF 2885.0 0 - 0 02/19 [place] [facility] Center BODY FLUIDS Tube Num CSF [id number] 02/19 [place] (02/19/2011 11:00:00) ?? [facility] CHEMISTRY POC A Glu 107.0 65 - 110 02/19 Normal [facility] Center CHEMISTRY POC A K 3.2 3.5 - 5.1 02/19 LOW [facility] CHEMISTRY POC A Ca Ion 1.1 1.16 - 02/19 LOW [facility] 1.30 [facility] Center CHEMISTRY POC A LA 0.7 0.5 - 2.2 02/19 Normal [facility] CHEMISTRY POC A Source ART 02/19 NA [facility] CHEMISTRY POC A pH 7.35 7.35 - 02/19 LOW [facility] 7.45 [facility] Center CHEMISTRY POC A Temp 37.0 02/19 NA [facility] Center CHEMISTRY POC A BE -3.0 -2-2 [...] [place] 48.0 [facility] Center BLOOD BANK ABO/Rh O NEG 02/19 Unknown [place] RESULTS [facility] Center BLOOD BANK Antibody Negative 02/19 Normal [facility] RESULTS Scrn (02/19/2011 10:33:00) ?? Medical [...] Na 136.0 135 - 145 02/19 Normal [facility] CHEMISTRY POC A pH 7.43 7.35 - 02/19 Normal [place] 7.45 [facility] Center CHEMISTRY POC A PO2 381.0 80 - 100 02/19 [place] [facility] CHEMISTRY POC A BE -1.0 -2-2 - 2 02/19 Normal Medical Center CHEMISTRY POC A HCO3 23.0 22 - 26 02/19 Normal Medical Center CHEMISTRY POC A O2 Sat 100.0 95.0 - 02/19 Normal [place] 100.0 Medical Center CHEMISTRY POC A PCO2 34.0 35 - 45 02/19 LOW [facility] Center CHEMISTRY POC A Temp 37.0 02/19 [...] on the clinical recommendatio ns of the [place] [employer]. HEMATOLOGY Lymphocytes 2.4 1.0 - 5.5 02/19 [place] HEMATOLOGY Monocytes # 0.7 0.0 - 0.8 02/19 Normal Medical Center HEMATOLOGY Basophils # 0.0 0.0 - 0.2 02/19 Normal Medical Center HEMATOLOGY Eosinophils 0.6 0.0 - 0.5 02/19 [facility] [place] HEMATOLOGY Segs-Bands # 2.4 1.5 - 8.1 02/19 Normal Medical Center HEMATOLOGY Monocytes 10.9 2.0 - 12.0 02/19 Normal Medical Center HEMATOLOGY Basophils 0.8 0.0 - 1.0 02/19 Normal Medical Center HEMATOLOGY Eosinophils 9.4 0.0 - 4.0 02/19 [facility] Medical Center HEMATOLOGY Lymphocytes 39.3 20.0 [...] 12.0 - 02/19 LOW [place] 16.0 /2010 [facility] Center HEMATOLOGY RBC 3.26 4.20 - 02/19 LOW [place] 5.40 /2010 Medical Center HEMATOLOGY Hct 30.9 36.0 - 02/19 LOW [place] 48.0 /2010 [facility] Center HEMATOLOGY WBC 6.2 3.7 - 10.4 [...] HEMATOLOGY PT 13.2 12.0 - 02/19 Normal [facility] 14.7 [facility] Center HEMATOLOGY PTT 30.3 22.9 - 02/19 Normal <sup>[place]</sup> [place] 35.8 /2010 Interpretive Medical Data: Heparin Center Therapeutic Range: 57 - 92 Seconds BEDSIDE Gluc POC 142.0 65 - 110 02/19 [place] <sup>1</sup>I [facility] GLUCOSE [facility] nterpretive Medical TESTING Data: Center Upper Reportable Limit: 200 mg/dL. BEDSIDE Comment1 Notify 02/19 NA [place] GLUCOSE [place]/ /2010 Medical TESTING Center BEDSIDE Gluc POC 153.0 65 - 110 02/19 [place] <sup>2</sup>I [facility] GLUCOSE [facility] nterpretive Medical TESTING Data: [place] Upper Reportable Limit: 200 mg/dL. BEDSIDE Comment1 Notify 02/19 NA [place] GLUCOSE [place]/ /2010 Medical TESTING Center BEDSIDE Gluc POC 149.0 65 - 110 02/19 [place] <sup>3</sup>I [facility] GLUCOSE [place] /2010 nterpretive Medical TESTING Data: Center Upper Reportable Limit: 200 mg/dL. BEDSIDE Comment1 Notify 02/18 NA [facility] GLUCOSE RN/MD /2010 Medical TESTING Center HEMATOLOGY MCV 94.3 81.0 - 02/18 Normal [place] 99.0 /2010 Medical Center HEMATOLOGY Hct 33.1 36.0 - 02/18 LOW [place] 48.0 Medical Center HEMATOLOGY RDW 16.6 11.5 - 02/18 [place] 14.5 Medical Center HEMATOLOGY MCH 32.8 27.0 - 02/18 [facility] [place] 31.0 Medical Center HEMATOLOGY MCHC [...] Center HEMATOLOGY MCH 32.7 27.0 - 02/15 [facility] [place] 31.0 /2010 Medical Center HEMATOLOGY MCV 95.1 81.0 - 02/15 Normal [place] 99.0 Medical Center HEMATOLOGY MCHC 34.3 32.0 - 02/15 Normal [place] 36.0 Medical Center HEMATOLOGY Platelet 117.0 133 - 450 02/15 LOW Medical Center HEMATOLOGY RDW 16.5 11.5 - 02/15 [facility] [place] 14.5 Medical Center HEMATOLOGY WBC [...] 0.5 02/15 [place] # /2010 [facility] Center HEMATOLOGY Monocytes # 0.6 0.0 - 0.8 02/15 [place] [facility] HEMATOLOGY Monocytes 4.8 2.0 - 12.0 02/15 Normal [facility] HEMATOLOGY Lymphocytes 26.8 20.0 - 02/15 Normal [place] 40.0 /2010 Medical Center HEMATOLOGY Lymphocytes 3.5 1.0 - 5.5 02/15 [place] # /2010 [facility] HEMATOLOGY Segs-Bands # 8.3 1.5 - 8.1 02/15 [place] [facility] HEMATOLOGY Basophils 0.8 0.0 - 1.0 02/15 Normal [facility] HEMATOLOGY Eosinophils 3.0 0.0 - 4.0 02/15 [place] [facility] HEMATOLOGY Segs 64.6 45.0 - 02/15 Normal [place] 75.0 [facility] CHEMISTRY Globulin 3.1 2.0 - 4.0 02/13 Normal [facility] CHEMISTRY Albumin Lvl 2.7 3.5 - 5.0 02/13 LOW [facility] CHEMISTRY Total 5.8 6.4 - 8.4 02/13 LOW [facility] CHEMISTRY B/C Ratio 43.0 6 - 25 02/13 [facility] CHEMISTRY A/G Ratio 0.9 0.7 - 1.6 02/13 Normal [facility] CHEMISTRY ALT 52.0 0 - 65 02/13 Normal [facility] CHEMISTRY Alk Phos 183.0 39 - 136 02/13 [facility] CHEMISTRY eGFR >60.0 02/13 NA <sup>6</sup>R esult Medical Comment: Center Expected eGFR for >20 yr. age group: >=60 ml/min/1.73 sq m The eGFR calculation is not valid in or for persons < 18 years of age. From [employer] (NKDEP) CHEMISTRY AGAP 16.9 10.0 - 02/13 Normal [place] 20.0 [facility] CHEMISTRY Calcium Lvl 8.5 8.5 - 10.5 02/13 Normal [facility] CHEMISTRY Bili Total 0.6 0.2 - 1.3 02/13 Normal [facility] Center CHEMISTRY AST 49.0 0 - 37 02/13 [place] [facility] CHEMISTRY Chloride Lvl 97.0 95 - 109 02/13 Normal [facility] CHEMISTRY Potassium 4.9 3.5 - 5.1 02/13 Normal <sup>5</sup>R [facility] esult Medical Comment: Center Specimen Moderately Hemolyzed. CHEMISTRY Creatinine 0.4 0.5 - 1.4 02/[address] [facility] Medical Center CHEMISTRY Sodium Lvl 134.0 135 - 145 02/13 LOW [facility] Center CHEMISTRY Glucose Lvl 109.0 02/13 NA <sup>9</sup>I [facility] nterpretive Medical Data: Center Reference Ranges : 0 - 7 days : 41 - 90 mg/dL 7 days - 150 yrs : 70 - 99 mg/dL (fasting), based on the clinical recommendatio ns of the [employer]. CHEMISTRY BUN 17.0 7 - 22 02/13 Normal [facility] CHEMISTRY CO2 25.0 24 - 32 02/13 Normal [facility] Center CHEMISTRY AGAP 18.6 10.0 - 02/12 Normal . [facility] Center CHEMISTRY Calcium Lvl 8.3 8.5 - 10.5 02/12 LOW [facility] Center CHEMISTRY Glucose Lvl 63.0 02/12 NA <sup>10</sup> [facility] Interpretive Medical Data: Center Reference Ranges : 0 - 7 days : 41 - 90 mg/dL 7 days - 150 yrs : 70 - 99 mg/dL (fasting), based on the clinical recommendatio ns of the [employer]. CHEMISTRY BUN 19.0 7 - 22 02/12 Normal [facility] CHEMISTRY Creatinine 0.7 0.5 - 1.4 02/12 Normal [facility] CHEMISTRY Sodium Lvl 135.0 135 - 145 02/12 Normal [facility] CHEMISTRY Chloride Lvl 97.0 95 - 109 02/12 Normal [facility] CHEMISTRY Potassium 3.6 3.5 - 5.1 02/12 Normal [place] [facility] CHEMISTRY CO2 23.0 24 - 32 02/12 LOW [facility] HEMATOLOGY Monocytes # 1.0 0.0 - 0.8 02/12 [place] HEMATOLOGY Basophils # 0.1 0.0 - 0.2 02/12 [facility] HEMATOLOGY Eosinophils 0.2 0.0 - 0.5 02/12 [place] [facility] HEMATOLOGY Lymphocytes 4.9 1.0 - 5.5 02/12 [place] [facility] HEMATOLOGY Basophils 0.7 0.0 - 1.0 02/12 Normal [facility] HEMATOLOGY Segs-Bands # 12.2 1.5 - 8.1 02/12 [facility] HEMATOLOGY Monocytes 5.5 2.0 - 12.0 02/12 Normal [facility] HEMATOLOGY Eosinophils 1.1 0.0 - 4.0 02/12 Normal [facility] HEMATOLOGY Segs 66.2 45.0 - 02/12 Normal [place] 75.0 [facility] HEMATOLOGY Lymphocytes 26.5 20.0 - 02/12 Normal [place] 40.0 [facility] CHEMISTRY Magnesium 1.8 1.8 - 2.4 02/11 Normal [facility] CHEMISTRY AST 57.0 0 - 37 02/11 [facility] CHEMISTRY Total 6.8 6.4 - 8.4 02/11 Normal Protein [facility] CHEMISTRY Albumin Lvl 3.2 3.5 - 5.0 02/11 LOW [facility] CHEMISTRY Globulin 3.6 2.0 - 4.0 02/11 Normal [facility] CHEMISTRY A/G Ratio 0.9 0.7 - 1.6 02/11 Normal [facility] CHEMISTRY ALT 59.0 0 - 65 02/11 Normal [facility] CHEMISTRY Alk Phos 258.0 39 - 136 02/11 [facility] CHEMISTRY Bili Total 0.7 0.2 - 1.3 02/11 Normal [facility] CHEMISTRY B/C Ratio 45.0 6 - 25 02/11 [facility] Medical Center HEMATOLOGY Anisocyte 1+ >None Seen 02/11 ABN [facility] *ABN* Medical (02/11/2011 14:00:00) ?? Center BEDSIDE Comment2 Sliding 02/11 NA [facility] GLUCOSE Scale Medical TESTING Center STOOL TESTS Fecal None Seen 4 02/11 Normal <sup>4</sup>I [facility] Leukocyte (02/11/2011 00:59:00) ?? nterp retive Medical Data: A Value Center of None Seen, Rare, or Few is Normal. BEDSIDE Comment2 Sliding 02/11 NA [facility] GLUCOSE Medical TESTING Center CHEMISTRY eGFR 48.0 02/10 NA <sup>7</sup>R esult Medical Comment: Center Expected eGFR for >20 yr. age group: >=60 ml/min/1.73 sq m The eGFR calculation is not valid in or for persons < 18 years of age. From National Kidney Disease Education Program (NKDEP) CHEMISTRY Globulin 3.0 2.0 - 4.0 02/10 Normal [facility] CHEMISTRY A/G Ratio 1.0 0.7 - 1.6 02/10 Normal [facility] CHEMISTRY B/C Ratio 23.0 6 - 25 02/10 Normal [facility] CHEMISTRY AST 31.0 0 - 37 02/10 Normal [facility] CHEMISTRY Albumin Lvl 3.1 3.5 - 5.0 02/10 LOW [facility] CHEMISTRY ALT 64.0 0 - 65 02/10 Normal [facility] CHEMISTRY Total 6.1 6.4 - 8.4 02/10 LOW [facility] CHEMISTRY Bili Total 0.5 0.2 - 1.3 02/10 Normal [facility] CHEMISTRY Alk Phos 235.0 39 - 136 02/10 [facility] HEMATOLOGY Polychrom Slight >None Seen 02/08 Normal [facility] (02/08/2011 05:19:00) ?? [facility] HEMATOLOGY Hypochrom Slight >None Seen 02/08 [facility] (02/08/2011 05:19:00) ?? Medical Center HEMATOLOGY Anisocyte 1+ >None Seen 02/08 [facility] *ABN* Medical (02/08/2011 05:19:00) ?? Center HEMATOLOGY Plt Morph Normal 02/08 Normal [facility] (02/08/2011 05:19:00) ?? Medical Center BEDSIDE Comment2 Sliding 02/07 NA [facility] GLUCOSE Scale Medical TESTING Center HEMATOLOGY Bands 0.0 0.0 - 11.0 02/06 Normal Medical Center BLOOD BANK Antibody Negative 02/05 Normal [facility] RESULTS Scrn (02/05/2011 14:12:00) ?? Medical Center BLOOD BANK ABO/Rh O NEG 02/05 Unknown [facility] CHEMISTRY Total CK 64.0 - 191 02/04 Normal Medical Center CHEMISTRY Troponin-I 0.03 0.00 - 02/04 Normal [facility] 0.40 Medical Center CHEMISTRY Total CK 71.0 - 02/03 Normal Medical Center CHEMISTRY Troponin-I 0.05 0.00 - 02/03 Normal [facility] 0. Medical Center Microbiolog Culture: 02/02 [facility] y Urine Medical Center URINALYSIS UA ?? 0.1 - 1.0 02/02 [facility] Urobilinogen Medical Center URINALYSIS UA Sq Epi None Seen 02/02 [facility] URINALYSIS UA Leuk Est Negative >Negative 02/02 Normal [place] [facility] (02/02/2011 17:21:00) ?? Medical Center URINALYSIS UA RBC <1.0 0 - 2 02/02 Normal Medical Center URINALYSIS UA Bacteria Occasional /HPF >None Seen 02/02 [facility] * Medical (02/02/2011 17:21:00) ?? Center URINALYSIS UA Nitrite Negative >Negative 02/02 [place] 17:21:00[place] ?? Medical Center URINALYSIS UA Ketones Negative mg/dL >Negative 02/02 [facility] * Medical (02/02/2011 17:21:00) ?? Center URINALYSIS UA Bili Negative >Negative 02/02 [facility]* Medical (02/02/2011 17:21:00) ?? Center URINALYSIS UA Blood Negative >Negative 02/02 Normal [facility] (02/02/2011 17:21:00) ?? Medical Center URINALYSIS UA Protein Negative mg/dL >Negative 02/02 Normal [facility] [place] [facility] (02/02/2011 17:21:00) ?? /2010 [facility] URINALYSIS UA Glucose Negative mg/dL >Negative 02/02 NA [facility] [place] [facility] *NA* Medical (02/02/2011 17:21:00) ?? Center URINALYSIS UA Color Light Yellow >Yellow 02/02 NA [facility] *NA* Medical (02/02/2011 17:21:00) ?? Center URINALYSIS UA Turbidity Clear >Clear 02/02 Normal [facility] (02/02/2011 17:21:00) ?? [facility] URINALYSIS UA Spec Grav 1.004 <<=1.030 02/02 Normal [facility] URINALYSIS UA pH 7.0 5.0 - 8.0 02/02 Normal [facility] CHEMISTRY T4 Free 0.98 0.76 - 02/01 Normal [facility] 1.46 [facility] CHEMISTRY TSH 0.711 0.360 - 02/01 Normal [facility] 3.740 [facility] IMMUNOLOGY Prealbumin 19.4 18.0 - 02/01 Normal [facility] 45.0 Medical Center BEDSIDE Comment1 Notify 01/31 [facility] GLUCOSE RN/MD Medical TESTING Center BEDSIDE Gluc POC 109.0 65 - 110 01/31 Normal <sup>2</sup>I [facility] GLUCOSE Lifscn nterpretive Medical TESTING Data: Center Upper Reportable Limit: 200 mg/dL. CHEMISTRY Phosphorus 2.9 2.5 - 4.5 01/31 Normal [facility] CHEMISTRY CO2 24.0 24 - 32 01/31 Normal [facility] CHEMISTRY Calcium Lvl 7.7 8.5 - 10.5 01/31 LOW [facility] CHEMISTRY Glucose Lvl 100.0 01/31 NA <sup>5</sup>I [place] nterpretive Medical Data: Center Reference Ranges : 0 - 7 days : 41 - 90 mg/dL 7 days - 150 yrs : 70 - 99 mg/dL (fasting), based on the clinical recommendatio ns of the [employer]. CHEMISTRY Sodium Lvl 138.0 135 - 145 01/31 Normal [facility] CHEMISTRY Potassium 3.9 3.5 - 5.1 01/31 Normal [facility] CHEMISTRY BUN 17.0 7 - 22 01/31 Normal Medical Center CHEMISTRY Creatinine 0.7 0.5 - 1.4 01/31 Normal [facility] CHEMISTRY Chloride Lvl 100.0 95 - 109 01/31 Normal Medical Center CHEMISTRY AGAP 17.9 10.0 - 01/31 Normal [place] 20.0 [facility] Center CHEMISTRY Magnesium 1.9 1.8 - 2.4 01/31 Normal [facility] CHEMISTRY Ca Norm 1.13 1.16 - 01/31 LOW [place] 1. Medical Center CHEMISTRY Ca Ion 1.09 1.16 - 01/31 LOW [place] 1. [facility] CHEMISTRY Ca Norm mgdL 4.52 4.65 - 01/31 LOW [facility] 5. Medical Center CHEMISTRY Ca Ion mgdL 4.36 4.65 - 01/31 LOW [facility] 5. Medical Center HEMATOLOGY Large Plt Slight >None Seen 01/31 ABN [place] *ABN* /2010 Medical (01/31/2011 03:36:00) ?? Center HEMATOLOGY Monocytes # 1.4 0.0 - 0.8 01/31 [facility] [place] [facility] HEMATOLOGY Myelocytes 3.0 <<=0.0 01/31 [facility] HEMATOLOGY Segs-Bands # 18.6 1.5 - 8.1 01/31 [facility] HEMATOLOGY Lymphocytes 1.6 1.0 - 5.5 01/31 [place] /[place] [facility] HEMATOLOGY Metamyelocyt 2.0 0.0 - 1.0 01/31 [facility] HEMATOLOGY Lymphocytes 7.0 20.0 - 01/31 LOW [place] 40.0 Medical Center HEMATOLOGY Monocytes 6.0 2.0 - 12.0 01/31 Normal Medical Center HEMATOLOGY Segs 79.0 45.0 - 01/31 [facility] [place] 75.0 Medical Center HEMATOLOGY Bands 2.0 0.0 - 11.0 01/31 Normal Medical Center HEMATOLOGY Hypochrom Slight >None Seen 01/31 [facility] (01/31/2011 03:36:00) ?? /2010 Medical Center HEMATOLOGY Polychrom Slight >None Seen 01/31 Normal [facility] (01/31/2011 03:36:00) ?? Medical Center HEMATOLOGY Rouleaux Present >None Seen 01/31 ABN [facility] *ABN* /2010 Medical (01/31/2011 03:36:00) ?? Center HEMATOLOGY Atypical 0.0 <<=0.0 01/31 Normal [facility] Lymphs /2010 Medical Center HEMATOLOGY Promyelocyte 1.0 <<=0.0 01/31 HI [facility] s /2010 Medical Center HEMATOLOGY RDW 15.3 11.5 - 01/31 HI [facility] 14.5 /2010 Medical Center HEMATOLOGY MPV 10.1 7.4 - 10.4 01/31 Normal Medical Center HEMATOLOGY Platelet 166.0 133 - 450 01/31 Normal Medical Center HEMATOLOGY Hct 37.3 36.0 - 01/31 Normal [facility] 48.0 /2010 Medical Center HEMATOLOGY MCHC 32.7 32.0 - 01/31 Normal [facility] 36.0 /2010 Medical Center HEMATOLOGY MCV 94.8 81.0 - 01/31 Normal [facility] 99.0 /2010 Medical Center HEMATOLOGY MCH 31.0 27.0 - 01/31 Normal [facility] 31.0 Medical Center HEMATOLOGY WBC 23.0 3.7 - 10.4 01/31 HI [facility] HEMATOLOGY RBC 3.93 4.20 - 01/31 LOW [facility] 5.40 /2010 [facility] HEMATOLOGY Hgb 12.2 12.0 - 01/31 Normal [facility] 16.0 Medical Center BEDSIDE Gluc POC 188.0 65 - 110 01/31 HI <sup>3</sup>I [facility] GLUCOSE Lifvt nterpretive Medical TESTING Data: [place] Upper Reportable Limit: 200 mg/dL. BEDSIDE Comment1 Notify 01/31 NA [facility] GLUCOSE RENAY/ Medical TESTING Center BEDSIDE Gluc POC 233.0 65 - 110 01/31 [place] <sup>4</sup>I [facility] GLUCOSE Lifsc nterpretive Medical TESTING Data: [place] Upper Reportable Limit: 200 mg/dL. BEDSIDE Comment1 Notify 01/30 NA [facility] GLUCOSE RENAY/ 2011 Medical TESTING Center CHEMISTRY Albumin Lvl 2.7 3.5 - 5.0 01/29 LOW Medical Center CHEMISTRY Phosphorus 3.7 2.5 - 4.5 01/29 Normal Medical Center CHEMISTRY Ca Ion mgdL 4.2 4.65 - 01/29 LOW [place] 5. Medical [facility] CHEMISTRY Ca Norm mgdL 4.24 4.65 - 01/29 LOW [facility] 5. Medical Center CHEMISTRY Ca Ion 1.05 1.16 - 01/29 LOW [place] 1. [facility] CHEMISTRY Ca Norm 1.06 1.16 - 01/29 LOW [facility] 1. Medical Center CHEMISTRY Magnesium 2.4 1.8 - 2.4 01/29 Normal [facility] Lvl Medical Center CHEMISTRY AGAP 15.0 10.0 - 01/29 Normal [facility] 20.0 Medical Center CHEMISTRY BUN 23.0 7 - 22 01/29 [facility] CHEMISTRY Creatinine 0.8 0.5 - 1.4 01/29 Normal [facility] CHEMISTRY Glucose Lvl 232.0 01/29 NA <sup>6</sup>I [place] nterpretive Medical Data: Center Reference Ranges : 0 - 7 days : 41 - 90 mg/dL 7 days - 150 yrs : 70 - 99 mg/dL (fasting), based on the clinical recommendatio ns of the [employer]. CHEMISTRY Potassium 4.0 3.5 - 5.1 01/29 Normal [facility] CHEMISTRY Sodium Lvl 144.0 135 - 145 01/29 Normal Medical Center CHEMISTRY Chloride Lvl 109.0 95 - 109 01/29 Normal Medical Center CHEMISTRY CO2 24.0 24 - 32 01/29 Normal Medical Center CHEMISTRY Calcium Lvl 7.8 8.5 - 10.5 01/29 [place] [facility] HEMATOLOGY Large Plt Slight >None Seen 01/29 ABN [facility] *ABN* Medical (01/29/2011 10:02:00) ?? Center HEMATOLOGY Polychrom Slight >None Seen 01/29 Normal [facility] (01/29/2011 10:02:00) ?? Medical Center HEMATOLOGY Atypical 0.0 <<=0.0 01/29 Normal [facility] Lymphs Medical Center HEMATOLOGY NRBC 1.0 01/29 NA Medical Center HEMATOLOGY Segs 81.0 45.0 - 01/29 [facility] [place] 75.0 /2010 Medical Center HEMATOLOGY Lymphocytes 9.0 20.0 - 01/29 LOW [place] 40.0 /2010 Medical Center HEMATOLOGY Monocytes 5.0 2.0 - 12.0 01/29 Normal Medical Center HEMATOLOGY Myelocytes 1.0 <<=0.0 01/29 [facility] HEMATOLOGY Metamyelocyt 2.0 0.0 - 1.0 01/29 [facility] [facility] HEMATOLOGY Bands 2.0 0.0 - 11.0 01/29 Normal Medical Center HEMATOLOGY Monocytes # 1.0 0.0 - 0.8 01/29 [facility] [place] [facility] HEMATOLOGY Lymphocytes 1.8 1.0 - 5.5 01/29 [place] # /2010 [facility] HEMATOLOGY Segs-Bands # 16.3 1.5 - 8.1 01/29 [facility] [place] /2010 Medical Center HEMATOLOGY MPV 9.4 7.4 - 10.4 01/29 Normal Medical Center HEMATOLOGY Hct 33.9 36.0 - 01/29 LOW [place] 48.0 Medical Center HEMATOLOGY MCV 94.0 81.0 - 01/29 Normal [place] 99.0 /2010 Medical Center HEMATOLOGY MCH 31.5 27.0 - 01/29 [facility] [place] 31.0 Medical Center HEMATOLOGY MCHC 33.6 32.0 - 01/29 [facility] [place] 36.0 /2010 Medical Center HEMATOLOGY RDW 16.1 11.5 - 01/29 [facility] [place] 14.5 Medical Center HEMATOLOGY Platelet 178.0 133 - 450 01/29 Normal Medical Center HEMATOLOGY WBC 19.6 3.7 - 10.4 01/29 [facility] Medical Center HEMATOLOGY Hgb 11.4 12.0 - 01/29 LOW [place] 16.0 Medical Center HEMATOLOGY RBC 3.61 4.20 - 01/29 LOW [place] 5.40 /2010 [facility] CHEMISTRY AGAP 14.2 10.0 - 01/28 Normal [place] 20.0 Medical Center CHEMISTRY Chloride Lvl 116.0 95 - 109 01/28 [facility] Medical Center CHEMISTRY Sodium Lvl 152.0 135 - 145 01/28 [facility] Medical Center CHEMISTRY Potassium 3.2 3.5 [...] on the clinical recommendatio ns of the [employer]. CHEMISTRY BUN 21.0 7 - 22 01/28 Normal Medical Center CHEMISTRY Creatinine 0.7 0.5 - 1.4 01/28 Normal [facility] CHEMISTRY Phosphorus 3.2 2.5 - 4.5 01/28 Normal Medical Center CHEMISTRY Magnesium 2.2 1.8 - 2.4 01/28 Normal [facility] CHEMISTRY Ca Norm 1.09 1.16 - 01/28 LOW [place] 1. Medical Center CHEMISTRY Ca Ion 1.06 1.16 - 01/28 [facility] [place] 1. Medical Center CHEMISTRY Ca Norm mgdL 4.36 4.65 - 01/28 [facility] [place] 5. Medical Center CHEMISTRY Ca Ion mgdL 4.24 4.65 - 01/28 [facility] [place] 5. Medical Center HEMATOLOGY Platelet 144.0 133 - 450 01/28 Normal Medical Center HEMATOLOGY MPV 10.4 7.4 - 10.4 01/28 Normal Medical Center HEMATOLOGY MCH 31.1 27.0 - 01/28 [facility] [place] 31.0 Medical Center HEMATOLOGY MCHC 33.3 32.0 - 01/28 [facility] [place] 36.0 Medical Center HEMATOLOGY RDW 16.0 11.5 - 01/28 [facility] [place] 14.5 Medical Center HEMATOLOGY Hct 32.3 36.0 - 01/28 [facility] [place] 48.0 Medical Center HEMATOLOGY MCV 93.5 81.0 - 01/28 Normal [place] 99.0 Medical Center HEMATOLOGY RBC 3.45 4.20 - 01/28 [facility] [place] 5.40 Medical Center HEMATOLOGY Hgb 10.7 [...] CHEMISTRY Osmolality 317.0 280 - 300 01/27 [facility] CHEMISTRY POC A pH 7.56 7.35 - 01/27 HI [place] 7.45 Medical Center CHEMISTRY POC A PO2 150.0 80 - 100 01/27 [facility] CHEMISTRY POC A Source ART 01/27 NA [facility] CHEMISTRY POC A Temp 37.0 01/27 NA [facility] CHEMISTRY POC A BE 4.0 -2-2 - 2 01/27 [facility] CHEMISTRY POC A O2 Sat 100.0 95.0 - 01/27 Normal [place] 100.0 [facility] CHEMISTRY POC A HCO3 25.0 22 - 26 01/27 Normal [facility] CHEMISTRY POC A PCO2 28.0 35 - 45 01/27 CRIT [facility] CHEMISTRY Osmolality 305.0 280 - 300 01/27 [facility] Medical Center HEMATOLOGY PTT 25.2 22.9 - 08/29 Normal <sup>12</sup> [facility] Interpretive Medical Data: Heparin Center Therapeutic Range: 57 - 92 Seconds HEMATOLOGY PT 15.8 12.0 - 01/27 [facility] HEMATOLOGY INR 1.26 0.85 - 01/27 [place] <sup>9</sup>I [facility] 06.17 nterpretive Medical Data: Center RECOMMENDED RANGES FOR PROTIME INR: 2.0-3.0 for most medical and surgical thromboemboli c states. 2.5-3.5 for artificial heart valves and recurrent embolism. INR SHOULD BE USED ONLY FOR PATIENTS ON STABLE ANTICOAGULANT THERAPY. HEMATOLOGY Eosinophils 0.0 0.0 - 4.0 01/27 Normal [facility] HEMATOLOGY Basophils 0.2 0.0 - 1.0 01/27 Normal [facility] HEMATOLOGY Eosinophils 0.0 0.0 - 0.5 01/27 Normal [facility] HEMATOLOGY Basophils # 0.0 0.0 - 0.2 01/27 Normal [facility] CHEMISTRY Osmolality 306.0 280 - 300 01/26 [facility] HEMATOLOGY Basophils # 0.0 0.0 - 0.2 01/26 Normal [facility] HEMATOLOGY Eosinophils 0.0 0.0 - 4.0 01/26 Normal [facility] HEMATOLOGY Eosinophils 0.0 0.0 - 0.5 01/26 Normal [facility] HEMATOLOGY Basophils 0.1 0.0 - 1.0 01/26 Normal [facility] HEMATOLOGY PTT 29.8 22.9 - 01/26 Normal <sup>13</sup> [facility] Interpretive Medical Data: Heparin Center Therapeutic Range: 57 - 92 Seconds HEMATOLOGY PT 15.4 12.0 - 01/26 [facility] HEMATOLOGY INR 1.22 0.85 - 01/26 [place] <sup>10</sup> [facility] 06.17 Interpretive Medical Data: Center RECOMMENDED RANGES FOR PROTIME INR: 2.0-3.0 for most medical and surgical thromboemboli c states. 2.5-3.5 for artificial heart valves and recurrent embolism. INR SHOULD BE USED ONLY FOR PATIENTS ON STABLE ANTICOAGULANT THERAPY. CHEMISTRY POC A Glu 108.0 65 - 110 01/26 Normal [facility] CHEMISTRY POC A LA 0.8 0.5 - 2.2 01/26 Normal [facility] CHEMISTRY POC A Ca Ion 1.17 1.16 - 01/26 Normal [place] 1.30 [facility] CHEMISTRY POC A K 3.6 3.5 - 5.1 01/26 Normal [facility] CHEMISTRY POC A Na 140.0 135 - 145 01/26 Normal [facility] CHEMISTRY POC A PO2 80.0 80 - 100 01/26 Normal [facility] CHEMISTRY POC A PCO2 40.0 35 - 45 01/26 Normal [facility] CHEMISTRY POC A Source ART 01/26 NA [facility] CHEMISTRY POC A Temp 37.0 01/26 NA [facility] CHEMISTRY POC A pH 7.4 7. - 01/26 Normal [place] 7. [facility] CHEMISTRY POC A Hct 34.0 36.0 - 01/26 LOW [place] 48.0 [facility] CHEMISTRY POC A BE 0.0 -2-2 - 2 01/26 Normal [facility] CHEMISTRY POC A O2 Sat 96.0 95.0 - 01/26 Normal [place] 100.0 [facility] CHEMISTRY POC A HCO3 25.0 22 - 26 01/26 Normal [facility] CHEMISTRY POC A O2 Sat 96.0 95.0 - 01/26 Normal [place] 100.0 [facility] CHEMISTRY POC A K 3.6 3.5 - 5.1 01/26 Normal [facility] CHEMISTRY POC A LA 0.8 0.5 - 2.2 01/26 Normal [facility] CHEMISTRY POC A Glu 113.0 65 - 110 01/26 HI [facility] CHEMISTRY POC A Source ART 01/26 NA [facility] CHEMISTRY POC A Temp 37.0 01/26 NA [facility] CHEMISTRY POC A HCO3 25.0 22 - 26 01/26 Normal [facility] CHEMISTRY POC A PO2 79.0 80 - 100 01/26 LOW [facility] CHEMISTRY POC A PCO2 38.0 35 - 45 01/26 Normal [facility] CHEMISTRY POC A pH 7.42 7.35 - 01/26 Normal [facility] 7.45 [facility] CHEMISTRY POC A BE 0.0 -2-2 - 2 01/26 Normal [facility] CHEMISTRY POC A Ca Ion 1.22 1.16 - 01/26 Normal [place] 1.30 [facility] CHEMISTRY POC A Na 138.0 135 - 145 01/26 Normal [facility] CHEMISTRY POC A Hct 36.0 36.0 - 01/26 Normal [facility] 48.0 [facility] CHEMISTRY POC A Hct 41.0 36.0 - 01/26 Normal [facility] 48.0 [facility] CHEMISTRY POC A Na 140.0 135 - 145 01/26 Normal [facility] CHEMISTRY POC A Ca Ion 1.05 1.16 - 01/26 LOW [facility] 1.30 [facility] CHEMISTRY POC A K 3.6 3.5 - 5.1 01/26 Normal [facility] CHEMISTRY POC A LA 0.8 0.5 - 2.2 01/26 Normal [facility] CHEMISTRY POC A Glu 107.0 65 - 110 01/26 Normal [facility] BLOOD BANK Antibody Negative 01/26 Normal [facility] RESULTS Scrn (01/26/2011 09:00:00) ?? [facility] BLOOD BANK ABO/Rh O NEG 01/26 Unknown [facility] HEMATOLOGY PTT 28.2 22.9 - 01/26 Normal [...] THERAPY. HEMATOLOGY PT 15.6 12.0 - 01/26 [facility] [place] 14.7 [facility] CHEMISTRY CK MB Index 0.4 0.0 - 2.5 01/25 Normal [facility] CHEMISTRY CK MB 1.1 0.5 - 3.6 01/25 Normal [facility] CHEMISTRY Myoglobin 141.0 25 - 72 01/25 [...] Acid 2.4 0.5 - 2.2 01/25 HI [facility] Lvl Medical Center HEMATOLOGY Target Cell [...] 01/24 Normal [facility] BLOOD BANK Antibody Negative 01/24 Normal [facility] RESULTS Scrn (01/24/2011 03:15:00) ?? [facility] BLOOD BANK ABO/Rh O NEG 01/24 Unknown [place] [facility] BLOOD BANK Platelet Product available 01/24 Normal [place] RESULTS product (01/24/2011 03:15:00) ?? [facility] Center BLOOD BANK RBC product Product available [...] CHEMISTRY Troponin-I <0.02 0.00 - 01/23 Normal [facility] 0.40 [facility] URINALYSIS UA Ketones TR 01/23 NA Medical Center URINALYSIS UA ?? 0.1 - 1.0 01/23 [facility] Urobilinogen [facility] URINALYSIS UA Sq Epi Occasional /LPF >Few [facility]/23 [facility] 05[facility]29:00[facility] ?? Center URINALYSIS UA WBC <1.0 0 - 5 01/23 Normal [facility] URINALYSIS UA Mucus Few /LPF >None [facility]en 01/23 [facility] (01/23/2011 05:29:00) ?? Center URINALYSIS UA RBC <1.0 0 - 2 01/23 Normal [facility] URINALYSIS UA Protein Negative mg/dL >Negative 01/23 Normal [facility] (01/23/2011 05:29:00) ?? Medical Center URINALYSIS UA Nitrite Negative >Negative [place]/23 [place]01[place]23[place] 05:29:00[place] ?? [facility] Center URINALYSIS UA Leuk Est Negative >Negative 01/23 Normal [facility] (01/23/2011 05:29:00) ?? Medical Center URINALYSIS UA Bili Negative >Negative 01/23 [facility] (01/23/2011 05:29:00[facility] ?? Center URINALYSIS UA Glucose 150 mg/dL >Negative 01/23 [facility]N [facility] *[facility] Medical (01/23/2011 05:29:00) ?? Center URINALYSIS UA Blood Negative >Negative 01/23 Normal [facility] (01/23/2011 05:29:00) ?? [facility] URINALYSIS UA pH 5.0 5.0 - 8.0 01/23 Normal [facility] URINALYSIS UA Spec Grav 1.01 <<=1.030 [place] [facility] URINALYSIS UA Turbidity Clear >Clear 01/23 Normal [facility] (01/23/2011 05:29:00) ?? [facility] URINALYSIS UA Color Yellow >Yellow 01/23 NA [facility] *NA* Medical (01/23/2011 05:29:00) ?? Center BACTERIAL - MRSA by PCR Negative 1 01/23 Normal <sup>1</sup>I [facility] SEROLOGY (01/23/2011 05:00:00) ?? nterpr etive [...] an infectious diseases specialist. Microbiolog Culture: 01/23 [facility] y [facility] r Screen Pathology Reports No Data Provided for This Section Diagnostic Reports Report Value Date Source Esophagus BA swallow EXAM: FLUOROSCOPY MODIFIED BARIUM SWALLOW 0 02/24/2020 [facility] Medical function video DX DATE: 02/24/2020 [...] chin tuck and no aspiration was seen. [place] barium: Normal swallowing with spoon and cup [...] DX EXAM: [facility]: [facility] 1946 hours Mitch [...] DX EXAM: XR CHEST 2 VIEWS 02/15/2020 [facility] DATE: 02/15/2020 19:44 CDT Center INDICATION: Respiratory distress - Possible MG e xacerbation COMPARISON: 12/14/2019 TECHNIQUE: PA and lateral chest radiographs IMPRESSION: 1. Left INSURANCE PREMIUM AUDITOR shunt and left Port-A-Cath are again seen. [...] EXAM: FLUOROSCOPY MODIFIED BARIUM SWALLOW 0 12/16/2019 [facility] function video DX DATE: 12/16/2019 0953 hours [...] Thin barium: Deep penetration without aspiration . [place] barium: Occasional flash penetration with out aspiration.. Pudding barium: Normal. Solid with barium: Normal. IMPRESSION: 1. Deep penetration without aspiration of thin barium. 2. Occasional flash penetration without aspirat ion of nectar barium. 3. Normal swallowing of pudding and solid consi stency barium. 4. Please also see detailed chart note by cristhian rowan. Abdomen 1 v for EXAM: XR ABDOMEN 1 VIEW 12/14/2019 [facility] Medical Placement DX DATE: 12/14/2019 8:54 AM CDT Cent er INDICATION: - post ngt ADDITIONAL INFORMATION: None. COMPARISON: None. TECHNIQUE: Limited AP view of the abdomen for tube placement assessment. Number of images: 1 FINDINGS: Transesophageal feeding tube: None Transesophageal suction tube: Side port and tip overlie the gastric fundus. Other tubes, lines and hardw are: INSURANCE PREMIUM AUDITOR shunt catheter tip overlies the left lower [...] AN ADDITIONAL PRELIMINARY OR FINALIZED VERSION. 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 ADDITIONAL INFORMATION: None. COMPARISON: None. TECHNIQUE: Oral barium contr ast of differing consistencies was given to the patient to assess swallowing mechanism. The study was performed in conjunction with speech pathology. FLUOROSCOPY TIME: 55 FLUOROSCOPY DOSE: 7.99 mGy DISCUSSION: The patient was given barium contrast of differe nt consistencies. Thin barium: Deep penetration. [place] barium: Deep penetration. Pudding barium: Normal. IMPRESSION: 1. Deep penetration with li quid consistency. No aspiration or penetration with pudding consistency. 2. Please also see detailed chart note by cristhian alston pathology. Chest 1view DX EXAM: XR CHEST 1 VIEW 12/12/2019 [facility] DATE: 12/12/2019 7:44 CDT Center INDICATION: - [...] DX EXAM: XR ABDOMEN 1 VIEW 12/11/2019 [facility] DATE: 12/11/2019 4:39 PM CDT [facility] er INDICATION: - Confirm NG tube placement ADDITIONAL INFORMATION: None. COMPARISON: KUB 12/09/2019 TECHNIQUE: Single frontal image of the abdomen. FINDINGS: Lines and tubes: NG tube tip projects over the left upper quadrant and likely region of the gastric fundus with sidehole near the GE junction. INSURANCE PREMIUM AUDITOR shunt catheter with tip overlying the right [...] DX EXAM: XR ABDOMEN 1 VIEW 12/09/2019 [facility] DATE: 12/09/2019 12:36 CDT Center INDICATION: - [...] and hardw are: Again seen is a INSURANCE PREMIUM AUDITOR shunt tubing coursing over the left hemithorax. [...] DX EXAM: XR ABDOMEN 1 VIEW 12/08/2019 [facility] DATE: 12/08/2019 5:10 PM [facility]: - Assess feeding tube placement ADDITIONAL INFORMATION: None. COMPARISON: KUB 12/15/2019 TECHNIQUE: Single frontal image of the abdomen. FINDINGS: Lines and tubes: NG tube tip projects over th e gastric fundus with sidehole near the GE junction. 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 ADDITIONAL INFORMATION: 74-y ear-old female [...] differe nt consistencies. Thin barium: Deep penetration. [place] barium: Deep penetration. Pudding barium: Deep penetration. IMPRESSION: 1. Deep penetration with thin, nectar, and pudd ing barium. 2. Please also see detailed chart note by cristhian alston pathology. 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 ADDITIONAL INFORMATION: None. COMPARISON: None. TECHNIQUE: Oral barium contr ast of differing consistencies was given to the patient to assess swallowing mechanism. The study was performed in conjunction with speech pathology. FLUOROSCOPY TIME: 44 seconds FLUOROSCOPY DOSE: 6.75 mGy DISCUSSION: The patient was given barium contrast of differe nt consistencies. Thin barium: Normal. [place] barium: Normal. Pudding barium: Normal. Solid with barium: Normal. IMPRESSION: 1. Normal swallowing withou t aspiration or penetration of thin, nectar, pudding, and solid with barium. 2. Please also see detailed chart note by cristhian alston pathology. Ext Lower Venous EXAM: US BILATERAL LOWER EXTREMITY VENOUS DOPPL ER 11/28/2019 [facility] Doppler Bilat US DATE: 11/28/2019 at 1108 [...] for EXAM: XR ABDOMEN 1 VIEW 11/26/2019 [facility] DX DATE: 11/26/2019 at 0119 hours Ce nter INDICATION: -Dobbhoff tube placement ADDITIONAL INFORMATION: None. COMPARISON: None. TECHNIQUE: Limited AP view of the abdomen for tube placement assessment. Number of images: 1. FINDINGS: Feeding tube: A feeding tube tip overlies the se cond portion of the duodenum. Enteric suction tube: None. Other tubes, lines and hardware: * INSURANCE PREMIUM AUDITOR shunt. * Partially visualized port catheter. * EKG leads overlie the patient. * Cholecystectomy clips in the right upper quad rant. Other: No other changes. IMPRESSION: 1. Feeding tube tip overlies the second portion of the duodenum. Chest 1view DX EXAM: XR CHEST 1 VIEW 11/24/2019 [facility] edical DATE: 11/24/2019 3:00 CDT Center INDICATION: [...] DX EXAM: XR CHEST 1 VIEW 11/22/2019 [facility] edical DATE: 11/22/2019 20:26 CDT Center INDICATION: [...] EXAM: MRI CERVICAL SPINE WITHOUT CONTRAST 2019 [facility] contrast MRI EXAM: MR thoracic spine without contrast Center EXAM: MRI lumbar spine without contrast DATE: 11/22/2019 10:36 AM CDT INDICATION: 74 years old Female patient with his tory of - fractures on ct. COMPARISON: Fall TECHNIQUE: Multiplanar, mult isequence noncontrast MR imaging of the cervical, thoracic and lumbar spine spine. FINDINGS: Limited motion degraded exam and Limited exam due to his poor mtcilv-oi-wntts ratio. MR cervical spine: Only axial gradient echo seq uences of the cervical spine are acquired with lots of motion artifacts and poor zuyxoo-gx-olveq ratio. Evaluation of the cord signal intensity [...] xam and Limited exam due to poor gzvtgh-ft-rnspv ratio, as detailed above. 2. Evaluation of the cord si gnal intensity is markedly limited due to motion artifacts and poor msgqpi-ob-lxhgn ratio. There is suggestion of STIR hyperintensity [...] EXAM: MRI CERVICAL SPINE WITHOUT CONTRAST 10/31 [facility] contrast MRI EXAM: MR thoracic spine without contrast Center EXAM: MRI lumbar spine without contrast DATE: 11/22/2019 10:36 AM CDT INDICATION: 74 years old Female patient with his tory of - fractures on ct. COMPARISON: Fall TECHNIQUE: Multiplanar, mult isequence noncontrast MR imaging of the cervical, thoracic and lumbar spine spine. FINDINGS: Limited motion degraded exam and Limited exam due to his poor awrkht-in-djkan ratio. MR cervical spine: Only axial gradient echo seq uences of the cervical spine are acquired with lots of motion artifacts and poor wxiwmo-nn-hsvlc ratio. Evaluation of the cord signal intensity [...] xam and Limited exam due to poor dsjbxz-jd-ldvrp ratio, as detailed above. 2. Evaluation of the cord si gnal intensity is markedly limited due to motion artifacts and poor osqlmx-yh-vvfin ratio. There is suggestion of STIR hyperintensity [...] EXAM: MRI CERVICAL SPINE WITHOUT CONTRAST 10/31 [facility] contrast MRI EXAM: MR thoracic spine without contrast Center EXAM: MRI lumbar spine without contrast DATE: 11/22/2019 10:36 AM CDT INDICATION: 74 years old Female patient with his tory of - fractures on ct. COMPARISON: Fall TECHNIQUE: Multiplanar, mult isequence noncontrast MR imaging of the cervical, thoracic and lumbar spine spine. FINDINGS: Limited motion degraded exam and Limited exam due to his poor vwpqwa-hp-fawlf ratio. MR cervical spine: Only axial gradient echo seq uences of the cervical spine are acquired with lots of motion artifacts and poor sgykuo-ya-tmhsw ratio. Evaluation of the cord signal intensity [...] xam and Limited exam due to poor udecfl-fz-oetvs ratio, as detailed above. 2. Evaluation of the cord si gnal intensity is markedly limited due to motion artifacts and poor vfqrai-fl-febeg ratio. There is suggestion of STIR hyperintensity [...] Esophagram w Water EXAM: FLUOROSCOPY ESOPHAGRAM 11/22/2019 [facility] Contrast DX DATE: 11/22/2019 9:56 CDT [...] Trauma EXAM: CT CHEST WITH CONTRAST 11/22/2019 [facility] Chest/Abd/Pelvis w IV EXAM: CT ABDOMEN AND [...] tip terminates at the left subclavian vein. INSURANCE PREMIUM AUDITOR shunt tubing terminates in the upper peritoneal [...] EXAM: CT ANGIOGRAM OF THE NECK [facility] DATE: 11/22/2019 8:10 CDT Center INDICATION: [...] RIGHT HAND 3 VIEWS 11/22/2019 [facility] EXAM: XR RIGHT WRIST 4 VIEWS [...] EXAM: XR RIGHT HAND 3 VIEWS 11/22/2019 [facility] Medical EXAM: XR RIGHT WRIST 4 [...] EXAM: XR RIGHT HAND 3 VIEWS 11/22/2019 [facility] EXAM: XR RIGHT WRIST 4 [...] EXAM: CT FACIAL BONES WITHOUT CONTRAST 0 [facility] contrast CT DATE: 11/22/2019 8:24 CDT Center [...] encephalomalacia are again noted. A left transfrontal INSURANCE PREMIUM AUDITOR shunt is noted. Soft tissues: No abnormality [...] Consult EXAM: CT CHEST WITHOUT CONTRAST 11/22/2019 [facility] CT DATE: 11/22/2019 at 0053 hours C [...] CT CERVICAL SPINE WITHOUT CONTRAST 0 11/22/2019 [facility] CT DATE: 11/21/2019 at 2239 hours C enter INDICATION: - TRAUMA, second interpretation req uested COMPARISON: Cervical spine CT 02/17/2019 TECHNIQUE: Noncontrast CT im ages of the cervical spine, obtained at [facility]. Axial, sagittal and coronal images provided. UT [...] Consult EXAM: CT BRAIN WITHOUT CONTRAST 11/22/2019 [facility] CT DATE: 11/22/2019 6:07 CDT Center INDICATION: Trauma, fall; tr ansferred for higher level of care, request for second interpretation of outside imaging. COMPARISON: CT brain from 03/02/2019 and MRI brai n from 02/22/2019 TECHNIQUE: Noncontrast axial imaging of the brain was acquired from the vertex to the skull base. Coronal and sagittal reformatted images were generated. 381 images. Imaging was performed at [facility] on 11/21/2019 at 10:47 PM . FINDINGS: [...] Consult EXAM: CT FACIAL BONES WITHOUT CONTRAST [facility] CT DATE: 11/21/2019 at 2239 hours C [...] CT EXAM: CT HEAD WITHOUT CONTRAST 03/02/2019 [facility] DATE: 03/02/2019 14:52 CDT Center [...] are unchanged in size. Persistent 0.4 cm kmqb-oi-uaqlx midline shift. IMPRESSION: 1. No CT evidence of acute intracranial abnormality. Redemonstration of areas of encephalomalacia in the right frontal and temporal lobes. Persistent 0.4 cm rwec-dc-vcttp midline shift. The ventricles are unchanged in size. Chest 1view DX EXAM: XR CHEST 1 VIEW 02/27/2019 [facility] edical DATE: 02/27/2019 13:37 CDT Center INDICATION: [...] DX EXAM: XR CHEST 1 VIEW 02/26/2019 [facility] edical DATE: 02/26/2019 13:33 CDT Center INDICATION: [...] EXAM: MRI BRAIN WITH AND WITHOUT CONTRAST [facility] MRI DATE: 02/22/2019 1740 hours [...] enhancement. PICC insert with or PROCEDURES: 02/21/2019 [facility] Med ical without port VR Foreign [...] used for the remainder of the procedure. Mgmt Analyst radiographic imaging d emonstrates a microwire with [...] A sterile dressing was applied. Catheter placed: Qualysp Catheter size (Romanian): 5 Catheter intravascular length (cm): 22 Catheter [...] report as written. Foreign body PROCEDURES: 02/21/2019 [facility] Medical retrieval from Foreign body retrieval [...] used for the remainder of the procedure. Mgmt Analyst radiographic imaging d emonstrates a microwire with [...] was applied. Catheter placed: Medcomp Catheter size (Romanian): 5 Catheter intravascular length (cm): 22 Catheter [...] 10 Standardized report: [email or web address] Attestation Signer name: bAel Johnson MD I attest that I was present for the entire procedure. I reviewed the stored images and agree with the report as written. Spine lumbar w/wo EXAM: MRI LUMBAR SPINE WITHOUT AND WITH CONTRA ST 02/20/2019 [facility] contrast MRI DATE: 02/22/2019 7:25 [...] RIGHT FOOT WITH AND WITHOUT CONTRAST 02/20/2019 [facility] MRI DATE: 02/20/2019 20:28 CDT [...] SPINE WITHOUT AND WIT H CONTRAST 02/20/2019 [facility] MRI DATE: 02/22/2019 6:43 PM CDT Cent [...] ABDOMEN AND PELVIS WITH CONTRAST 0 02/19/2019 [facility] contrast only CT DATE: 02/19/2019 [...] EXAM: CT RIGHT FOOT WITH CONTRAST 02/19/2019 [facility] DATE: 02/19/2019 at 0844 hours [...] EXAM: CT LUMBAR SPINE WITH CONTRAST 02/17/2019 [facility] contrast CT DATE: 02/17/2019 Center [...] CERVICAL SPINE WITH CONTRAST 9 [facility] contrast CT DATE: 02/17/2019 Center INDICATION: 74 [...] complex indenting the ventral thecal sac causing jknl-rg-wbztxwse spinal canal stenosis. Bilateral severe neural foraminal [...] EXAM: MR RIGHT FOOT WITHOUT CONTRAST 2018 [facility] DATE: 02/12/2019 2:09 PM CDT [facility] er INDICATION: - r/o OM COMPARISON: [...] DX EXAM: XR CHEST 1 VIEW 02/09/2019 [facility] edical DATE: 02/09/2019 7:48 CDT Center INDICATION: Respiratory distress - sepsis COMPARISON: 02/07/2019 TECHNIQUE: AP chest radiograph IMPRESSION: 1. Cardiomediastinal silhou ette is enlarged, unchanged. Aortic atherosclerotic disease. 2. Prominent lung reticulat ions again seen with peribronchial cuffing suggestive of pulmonary edema. Superimposed infection cannot be excluded. 3. Costophrenic sulci are sharp. 4. Osseous structures are stable. 5. Left-sided INSURANCE PREMIUM AUDITOR shunt is stable compared to pr evious study. Foot wo contrast CT EXAM: CT RIGHT FOOT WITHOUT CONTRAST 019 [facility] DATE: 02/08/2019 7:05 CDT Center INDICATION: - [...] DX EXAM: XR CHEST 1 VIEW 02/07/2019 [facility] edical DATE: 02/07/2019 7:28 PM CDT Cente r INDICATION: - shortness of breath COMPARISON: 02/06/2019 TECHNIQUE: AP chest. IMPRESSION: Left-sided INSURANCE PREMIUM AUDITOR shunt in stabl e position. Stable cardiac mediastinal silhouette and atherosclerotic changes in the aorta. Small bilateral pleural effusions. No pneumothorax. Mild bibasilar subsegmental atelectasis. CONCLUSION: 1. Small bilateral pleural effusions. 2. Mild bibasilar subsegmental atelectasis. Upp er lungs are clear. Chest 1view DX EXAM: XR CHEST 1 VIEW 02/06/2019 [facility] edical DATE: 02/06/2019 15:06 T [place] INDICATION: - infectious workup for AMS COMPARISON: [...] EXAM: XR RIGHT WRIST 3 VIEWS [facility]2019 [facility] DATE: 02/05/2019 17:36 [facility] INDICATION: - fall, severe pain COMPARISON: None TECHNIQUE: PA, lateral and oblique radiographs of the wrist FINDINGS: No acute fracture or malalignment is identified. No soft tissue abnormality is identified. IMPRESSION: No acute abnormality. Ankle 3 views DX EXAM: XR RIGHT ANKLE 3 VIEWS 02/05/2019 [facility] DATE: 02/05/2019 17:36 T Center [...] DX EXAM: XR CHEST 2 VIEWS 02/05/2019 [facility] DATE: 02/05/2019 2:09 PM CDT Cente r [...] 4. Osseous structures are stable. 5. Left-sided INSURANCE PREMIUM AUDITOR shunt is stable compared to pr evious study. Chest 1view DX EXAM: XR CHEST 1 VIEW 12/27/2018 [facility] edical DATE: 12/27/2018 3:00 T Center INDICATION: [...] DX EXAM: XR CHEST 1 VIEW 12/26/2018 [facility] edical DATE: 12/26/2018 6:29 CDT Center INDICATION: [...] for EXAM: XR CHEST 1 VIEW 12/25/2018 [facility] edical Placement DX DATE: 12/25/2018 3:42 T [...] catheter. Liver US EXAM: US LIVER 12/24/2018 [facility] DATE: 12/24/2018 20:47 T Center [...] DX EXAM: XR CHEST 1 VIEW 12/24/2018 [facility] edical DATE: 12/24/2018 20:04 T Center INDICATION: [...] for EXAM: XR ABDOMEN 1 VIEW 12/24/2018 [facility] Placement DX DATE: 12/24/2018 20:04 T Center [...] focal consolidation is identified. There is left-sided INSURANCE PREMIUM AUDITOR shunt tubing. There are calcified granulomata in the upper lobes. The cardiac silhouette is up per limits of normal in size. Degenerative change involves the thoracic spine and shoulders. An old distal right clavicle fracture is suspected. IMPRESSION: 1. Minimal left lower lobe subsegmental atelecta sis. [id number] Bone Density DXA Dual 10/21/2018 DOMONIQUE Pe [...] is recommended. This exam was interpreted at [id number] for CRISPIN Varela 15. Betzy Caba M.D., ms/ellierad:10/21/2018 12:45:40 Payroll And Benefits Assistant(s): Daniel Anthony Esophagus BA swallow EXAM: FLUOROSCOPY MODIFIED BARIUM SWALLOW 0 09/23/2018 [facility] video DX DATE: 09/23/2018 at [...] 1 view DATE: - Codman's view 2018 [facility] INDICATION: Suspected shunt malfunction. Center [...] DX EXAM: XR CHEST 1 VIEW 09/17/2018 [facility] edical DATE: 09/17/2018 3:00 CDT Center INDICATION: Tube placement/removal/reposition - atlectasis COMPARISON: 09/15/2017 TECHNIQUE: AP chest. FINDINGS: Feeding tube has been remove d. Left upper extremity PICC and INSURANCE PREMIUM AUDITOR shunt remains in position. Persistent small left [...] EXAM: FLUOROSCOPY MODIFIED BARIUM SWALLOW 0 09/16/2018 [facility] function video DX DATE: 09/16/2018 at 1349 hours Center INDICATION: Dysphagia - Comparison to MBS @ [facility] C 09/08/18. COMPARISON: 09/08/2018 modified barium swallow. TECHNIQUE: Oral barium contr ast of differing consistencies was given to the patient to assess swallowing mechanism. The study was performed in conjunction with speech pathology. FLUOROSCOPY TIME: 1 minute 29 seconds SKIN DOSE: 11.51 mGy DISCUSSION: The patient was given barium contrast of differe nt consistencies. Thin barium: Deep, silent penetration.. [place] barium: Normal. Pudding barium: Pooling into the [...] DX EXAM: XR CHEST 1 VIEW 09/15/2018 [facility] edical DATE: 09/15/2018 3:00 T Center INDICATION: [...] DX EXAM: XR CHEST 1 VIEW 09/14/2018 [facility] edical DATE: 09/14/2018 3:00 T Center INDICATION: [...] CT ABDOMEN AND PELVIS WITH CONTRAST 09/13/2018 [facility] contrast CT DATE: 09/13/2018 10:29 T Center [...] stric antrum. Right upper quadrant surgical clips. INSURANCE PREMIUM AUDITOR shunt catheter tip at the lower central [...] CT EXAM: CT CHEST WITH CONTRAST 09/13/2018 [facility] DATE: 09/13/2018 10:28 CDT Center [...] per Fleischner criteria : [facility] for nodules measuring up to 6 [...] EXAM: MRI BRAIN WITH AND WITHOUT CONTRAST [facility] MRI DATE: 09/13/2018 at 0221 [...] for EXAM: XR CHEST 1 [facility]: 09/13/2018 3:00 T Center INDICATION: Tube placement - ETT placement COMPARISON: 08/31/2018 TECHNIQUE: AP chest IMPRESSION: 1. Interval placement of en dotracheal tube with tip terminates 2 cm above the jennifer. Interval placement of feeding tube with adequate positioning. Again seen is left upper extremity PICC with stable p osition. Left sided INSURANCE PREMIUM AUDITOR shunt is stable in positi on. 2. Small left pleural effus ion with left basilar atelectatic changes. No new lung lesions identified. 3. Cardiomediastinal silhou ette is enlarged, unchanged. Aortic atherosclerotic disease. 4. Osseous structures are stable. Abdomen AP DX EXAM: XR ABDOMEN 1 VIEW 09/12/2018 [facility] DATE: 09/12/2018 20:16 CDT Center INDICATION: - [...] DX EXAM: XR ABDOMEN 1 VIEW 09/12/2018 [facility] DATE: 09/12/2018 17:42 [facility] INDICATION: - [place] placement COMPARISON: 03/14/2011 TECHNIQUE: Limited AP view of the abdomen for tube placement assessment. Number of images: 1 FINDINGS: Transesophageal feeding tube tip in the proximal stomach and needs to be further advanced. Transesophageal suction tube: None. Other tubes and lines: A INSURANCE PREMIUM AUDITOR shunt catheter noted . No other changes. IMPRESSION: Tube positions as above. Skull 1 view DX EXAM: XR SKULL 1 VIEW 09/11/2018 [facility] DATE: 09/11/2018 1:02 PM Center INDICATION: INSURANCE PREMIUM AUDITOR shunt, MRI COMPARISON: Skull x-ray from 08/18/2018 TECHNIQUE: A single oblique radiograph of the sk ull. DISCUSSION: Ventricular cath eter with Hakim Codman valve, setting of 140 mm water, without interval change. IMPRESSION: Stable valve setting 140 mm water. Chest 1 v for EXAM: XR CHEST 1 VIEW 09/10/2018 [facility] edical Placement DX DATE: 09/10/2018 1:51 CDT Center INDICATION: Line Placement - Chest 1 view for li ne placement COMPARISON: 09/08/2017 TECHNIQUE: AP chest. FINDINGS: Left-sided chest wall INSURANCE PREMIUM AUDITOR rosa nt is unchanged. Redemonstration of left [...] BARIUM SWALLOW WITH ERICE CH PATHOLOGY 09/08/2018 [facility] [place] function video DX DATE: 09/08/2018 12:40 CDT . ORDERING PHYSICIAN: Sadi Cortés MD CLINICAL INDICATION: - Complete with WASTE PICKER Vandana gomez; TECHNIQUE: The patient swall owed [...] frequent nasal regurgitation. Thin barium: Symptomatic aspiration [place]: Symptomatic aspiration IMPRESSION: 1. Some traumatic aspiration with thin and nect ar consistencies 2. Pharyngeal stasis with nasal regurgitation 3. Please refer to separate speech pathology report for further detail and recommendations Chest 1 v for Chest 1 v for Placement DX 09/08/2018 9:56 CDT 0 09/08/2018 [facility] [place] Placement DX HISTORY/INDICATIONS:73 years Female Line [...] Left PICC line terminates in the SVC. [id number] Angiogram cervical PROCEDURE: 08/19/2018 [facility] roger artery bilateral VR 1. 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 HISTORY: 73-year-old female patient with past medical history of meningioma of the planum sphenoidale resected in 2010, status post INSURANCE PREMIUM AUDITOR shunt placement. Currently complaining of insidious onset [...] single wall micropunctur e technique and a 5-Romanian sheath was placed. A 5- Romanian Vert catheter was coaxially advanced over a [...] carotid arteries with normal filling of the buckle coverer al carotid artery branches. Smooth atheromatous plaques [...] DX EXAM: XR SKULL 1 VIEW 08/18/2018 [facility] edical DATE: 08/18/2018 17:56 CDT Center INDICATION: [...] MRI EXAM: MRI BRAIN WITHOUT CONTRAST 9 [facility] EXAM: MRI ORBITS WITHOUT CONTRAST. Center DATE: [...] MRI EXAM: MRI BRAIN WITHOUT CONTRAST 9 [facility] EXAM: MRI ORBITS WITHOUT CONTRAST. Center DATE: [...] NECK WITH CONTRAST 08/18/2018 [facility] contrast CT DATE: 08/18/2018 7:19 CDT Center [...] EXAM: FLUOROSCOPY MODIFIED BARIUM SWALLOW 0 08/18/2018 [facility] function video DX DATE: 08/18/2018 [facility] - swallow. ADDITIONAL INFORMATION: None. [...] CT EXAM: CT CHEST WITH CONTRAST 08/17/2018 [facility] DATE: 08/17/2018 17:07 CDT Center [...] COMPARISON: No available prior chest CT[facility] FINDINGS: Lines and Tubes: Left sided, anterior chest wall INSURANCE PREMIUM AUDITOR shunt is noted. Lower Neck: Please refer [...] the skull for shunt settin g. 08/17/2018 [facility] HISTORY: Evaluate shunt setting. Comparison with radiographs from August 19, 2011. TECHNIQUE: 3 views of the skull were obtained. FINDINGS: A Codman valve is placed, th e shunt valve setting is approximately 150 cc of water. FINDINGS: Radiographs for shunt valve setting. Brain/Neck CTA Exam: CTA HEAD AND NECK 08/16/2018 [facility] DATE: 08/16/2018 7:42 PM CDT [...] arteries and basilar artery are patent. Both security installation sales technician are patent. Nonflow limiting stenot ic lesions in the left P2 and right P3-P4 segmen t. No AV malformation or aneurysms. IMPRESSION: Atheromatous disease in the carotid bulbs not resulting in significant stenosis by NASCET criteria. Greater than 50% stenosis in the para and supraclinoid right internal carotid artery. No flow-limiting stenotic lesions in both security installation sales technician. Aberrant right subclavian artery Qualitative and quantitative assessments of stenosis in the carotid bulbs is made referencing the distal internal carotid artery Brain wo contrast CT EXAM: CT BRAIN WITHOUT CONTRAST 08/16/2018 [facility] DATE: 08/16/2018 4:26 PM CDT [...] Date Comments Source Respitory Rate 32 02/27/2020 [facility] Systolic (mm Hg) 106 02/27/2020 [facility] [place] Diastolic (mm Hg) 64 02/27/2020 [facility] Respitory Rate 27 02/27/2020 [facility] Respitory Rate 32 02/27/2020 [facility] Systolic (mm Hg) 125 02/27/2020 [facility] dical [place] Diastolic (mm Hg) 73 02/27/2020 [facility] Systolic (mm Hg) 106 02/27/2020 [facility] dical [place] Diastolic (mm Hg) 52 02/27/2020 [facility] Temperature Oral (F) 98.4 F 02/23/2020 [facility] Temperature Oral (F) 98.8 F 02/22/2020 [facility] Temperature Oral (F) 96.8 F 02/22/2020 [facility] Respitory Rate 24 02/20/2020 [facility] Respitory Rate 21 02/20/2020 [facility] Temperature Oral (F) 98 F 02/20/2020 [facility] Respitory Rate 20 02/20/2020 [facility] Center Systolic (mm Hg) 110 02/20/2020 [facility] dical Center Diastolic (mm Hg) 52 02/20/2020 [facility] [place] Systolic (mm Hg) 105 02/20/2020 [facility] dical Center Diastolic (mm Hg) 54 02/20/2020 [facility] Temperature Oral (F) 97.4 F 02/20/2020 [facility] Systolic (mm Hg) 129 02/20/2020 [facility] dical Center Diastolic (mm Hg) 60 02/20/2020 [facility] Temperature Oral (F) 98 F 02/16/2020 [facility] Heart Rate 60 02/16/2020 [facility] Heart Rate 73 02/16/2020 [facility] Heart Rate 66 02/16/2020 [facility] Height 149.86 cm 02/15/2020 [facility] Weight 84.545 02/15/2020 [facility] [place] BMI Calculated 37.65 02/15/2020 [facility] Heart Rate 79 12/20/2019 [facility] Respitory Rate 18 12/20/2019 [facility] Systolic (mm Hg) 107 12/20/2019 [facility] dical Center Diastolic (mm Hg) 71 12/20/2019 [facility] edical Center Heart Rate 81 12/20/2019 [facility] Respitory Rate 15 12/20/2019 [facility] Center Systolic (mm Hg) 112 12/20/2019 [facility] dical Center Diastolic (mm Hg) 77 12/20/2019 [facility] edical Center Heart Rate 80 12/20/2019 [facility] Respitory Rate 18 12/20/2019 [facility] Systolic (mm Hg) 119 12/20/2019 [facility] dical Center Diastolic (mm Hg) 71 12/20/2019 [facility] [place] Temperature Oral (F) 97.6 F 12/20/2019 [facility] Temperature Oral (F) 97.5 F 12/19/2019 [facility] Temperature Oral (F) 97.5 F 12/19/2019 [facility] Height 149.86 cm 12/06/2019 [facility] Height 149.86 cm 12/06/2019 [facility] Height 149.86 cm 12/06/2019 [facility] Systolic (mm Hg) 127 12/01/2019 [facility] dical Center Diastolic (mm Hg) 58 12/01/2019 [facility] edical Center Respitory Rate 21 12/01/2019 [facility] Center Respitory Rate 24 12/01/2019 [facility] Center Respitory Rate 19 12/01/2019 [facility] Center Systolic (mm Hg) 149 12/01/2019 [facility] dical Center Diastolic (mm Hg) 103 12/01/2019 [facility] edical Center Systolic (mm Hg) 146 12/01/2019 [facility] dical Center Diastolic (mm Hg) 65 12/01/2019 [facility] edical Center Temperature Oral (F) 98.6 F 11/30/2019 [facility] Temperature Oral (F) 98.5 F 11/30/2019 [facility] Temperature Oral (F) 98.0 F 11/30/2019 [facility] Respitory Rate 18 11/28/2019 [facility] Systolic (mm Hg) 149 11/28/2019 [facility] dical Center Diastolic (mm Hg) 66 11/28/2019 [facility] edical Center Respitory Rate 12 11/28/2019 [facility] Systolic (mm Hg) 133 11/28/2019 [facility] dical Center Diastolic (mm Hg) 71 11/28/2019 [facility] edical Center Respitory Rate 13 11/28/2019 [facility] Systolic (mm Hg) 167 11/28/2019 [facility] dical Center Diastolic (mm Hg) 70 11/28/2019 [facility] edical Center Respitory Rate 20 11/28/2019 [facility] Center Systolic (mm Hg) 171 11/28/2019 [facility] dical Center Diastolic (mm Hg) 72 11/28/2019 [facility] edical Center Respitory Rate 24 11/28/2019 [facility] Systolic (mm Hg) 162 11/28/2019 [facility] dical Center Diastolic (mm Hg) 73 11/28/2019 [facility] Respitory Rate 25 11/28/2019 [facility] Center Systolic (mm Hg) 153 11/28/2019 [facility] dical Center Diastolic (mm Hg) 65 11/28/2019 [facility] Temperature Oral (F) 99.0 F 11/24/2019 [facility] Height 149.86 cm 11/23/2019 [facility] Weight 90 11/23/2019 [facility] BMI Calculated 40.07 11/23/2019 [facility] Temperature Oral (F) 97.4 F 11/22/2019 [facility] Temperature Oral (F) 97.9 F 11/22/2019 [facility] Heart Rate 88 11/22/2019 [facility] Temperature Oral (F) 98.8 F 03/04/2019 [facility] Heart Rate 78 03/04/2019 [facility] [place] Respitory Rate 18 03/04/2019 [facility] Center Systolic (mm Hg) 126 03/04/2019 [facility] dical Center Diastolic (mm Hg) 64 03/04/2019 [facility] Temperature Oral (F) 97.9 F 03/04/2019 [facility] Heart Rate 75 03/04/2019 [facility] Respitory Rate 18 03/04/2019 [facility] Center Systolic (mm Hg) 135 03/04/2019 [facility] dical Center Diastolic (mm Hg) 69 03/04/2019 [facility] edical [place] Temperature Oral (F) 98.6 F 03/04/2019 [facility] Heart Rate 68 03/04/2019 [facility] Respitory Rate 18 03/04/2019 [facility] Systolic (mm Hg) 147 03/04/2019 [facility] dical Center Diastolic (mm Hg) 77 03/04/2019 [facility] Height 149.86 cm 03/01/2019 [facility] Weight 100 03/01/2019 [facility] BMI Calculated 44.53 03/01/2019 [facility] Height 149.86 cm 02/16/2019 [facility] Weight 90.909 02/16/2019 [facility] Height 149.86 cm 02/09/2019 [facility] Weight 90.909 02/09/2019 [facility] BMI Calculated 40.48 02/05/2019 [facility] Temperature Oral (F) 97.6 F 01/10/2019 [facility] Heart Rate 78 01/10/2019 [facility] Respitory Rate 18 01/10/2019 [facility] Systolic (mm Hg) 109 01/10/2019 [facility] dical Center Diastolic (mm Hg) 70 01/10/2019 [facility] Temperature Oral (F) 97.6 F 01/10/2019 [facility] Heart Rate 80 01/10/2019 [facility] Respitory Rate 18 01/10/2019 [facility] Systolic (mm Hg) 112 01/10/2019 [facility] dical Center Diastolic (mm Hg) 60 01/10/2019 [facility] edical Center Temperature Oral (F) 97.9 F 01/10/2019 [facility] Heart Rate 84 01/10/2019 [facility] Respitory Rate 18 01/10/2019 [facility] Systolic (mm Hg) 106 01/10/2019 [facility] Diastolic (mm Hg) 67 01/10/2019 [facility] edical Center Height 152.4 cm 12/27/2018 [facility] Height 152.4 cm 12/27/2018 [facility] Height 152.4 cm 12/27/2018 [facility] Weight 92 12/24/2018 [facility] BMI Calculated 39.61 12/24/2018 [facility] Temperature Oral (F) 98.8 F 11/29/2018 [facility] Heart Rate 78 11/29/2018 [facility] Systolic (mm Hg) 174 11/29/2018 [facility] Diastolic (mm Hg) 74 11/29/2018 [facility] Respitory Rate 20 11/29/2018 [facility] Systolic (mm Hg) 190 11/29/2018 [facility] dical Center Diastolic (mm Hg) 79 11/29/2018 [facility] Height 149.86 cm 11/29/2018 [facility] BMI Calculated 45.54 11/29/2018 [facility] Weight 102.273 11/29/2018 [facility] Systolic (mm Hg) 163 11/29/2018 [facility] dical Center Diastolic (mm Hg) 83 11/29/2018 [facility] Respitory Rate 20 11/29/2018 [facility] Heart Rate 80 11/29/2018 [facility] Temperature Oral (F) 98.7 F 11/29/2018 [facility] Systolic (mm Hg) 139 09/23/2018 [facility] dical Center Diastolic (mm Hg) 66 09/23/2018 [facility] Respitory Rate 18 09/23/2018 [facility] Temperature Oral (F) 97.8 F 09/23/2018 [facility] Heart Rate 70 09/23/2018 [facility] Temperature Oral (F) 97.2 F 09/23/2018 [facility] Heart Rate 66 09/23/2018 [facility] Systolic (mm Hg) 147 09/23/2018 [facility] dical Center Diastolic (mm Hg) 63 09/23/2018 [facility] Respitory Rate 18 09/23/2018 [facility] Systolic (mm Hg) 147 09/23/2018 [facility] dical Center Diastolic (mm Hg) 53 09/23/2018 [facility] Respitory Rate 18 09/23/2018 [facility] Heart Rate 67 09/23/2018 [facility] Temperature Oral (F) 98.3 F 09/23/2018 [facility] BMI Calculated 40.88 09/21/2018 [facility] Weight 91.818 09/21/2018 [facility] Temperature Oral (F) 98.1 F 09/20/2018 [facility] Temperature Oral (F) 97.9 F 09/20/2018 [facility] Respitory Rate 30 09/20/2018 [facility] Center Systolic (mm Hg) 174 09/20/2018 [facility] dical Center Diastolic (mm Hg) 74 09/20/2018 [facility] Respitory Rate 27 09/20/2018 [facility] Systolic (mm Hg) 167 09/20/2018 [facility] dical Center Diastolic (mm Hg) 70 09/20/2018 [facility] Temperature Oral (F) 97.5 F 09/20/2018 [facility] Respitory Rate 35 09/20/2018 [facility] Systolic (mm Hg) 175 09/20/2018 [facility] dical Center Diastolic (mm Hg) 71 09/20/2018 [facility] Height 149.86 cm 09/15/2018 [facility] Height 149.86 cm 09/15/2018 [facility] Height 149.86 cm 09/15/2018 [facility] Heart Rate 101 09/11/2018 [facility] Heart Rate 98 09/11/2018 [facility] Heart Rate 95 09/11/2018 [facility] Respitory Rate 19 09/10/[address] [facility]y Systolic (mm Hg) 161 09/10/2018 [facility] Diastolic (mm Hg) 101 09/10/2018 [facility] Respitory Rate 16 09/10/[address] [facility] Systolic (mm Hg) 148 09/10/2018 [facility] [place] Diastolic (mm Hg) 67 09/10/2018 [facility] Systolic (mm Hg) 121 09/09/2018 [facility] [place] Diastolic (mm Hg) 54 09/09/2018 [facility] Respitory Rate 15 09/09/[address] [facility] BMI Calculated 41.99 09/08/[address] [facility] Height 149.86 cm 09/08/[address] [facility] Weight 94.3 09/08/[address] [facility] Systolic (mm Hg) 110 08/20/2018 [facility] dical Center Diastolic (mm Hg) 66 08/20/2018 [facility] Respitory Rate 33 08/20/2018 [facility] Temperature Oral (F) 98.0 F 08/20/2018 [facility] Temperature Oral (F) 97.9 F 08/19/2018 [facility] Respitory Rate 20 08/19/2018 [facility] Temperature Oral (F) 97.8 F 08/19/2018 [facility] Systolic (mm Hg) 138 08/19/2018 [facility] dical Center Diastolic (mm Hg) 76 08/19/2018 [facility] edical Center Respitory Rate 18 08/19/2018 [facility] Center Systolic (mm Hg) 144 08/19/2018 [facility] dical Center Diastolic (mm Hg) 63 08/19/2018 [facility] edical Center Heart Rate 92 08/19/2018 [facility] Heart Rate 72 08/18/2018 [facility] Heart Rate 70 08/18/2018 [facility] BMI Calculated 49.69 08/17/2018 [facility] Center Height 149.86 cm 08/17/2018 [facility] Weight 111.6 08/17/2018 [facility] Weight 113.636 08/16/2018 [facility] Height 152.4 cm 08/16/2018 [facility] BMI Calculated 48.93 08/16/2018 [facility] Center Diastolic (mm Hg) 60.0 03/25/2011 [facility] edical Center Systolic (mm Hg) 151.0 03/25/2011 [facility] dical Center Temperature Oral (F) 97.6 F 03/25/2011 [facility] Heart Rate 87.0 03/25/2011 [facility] Respitory Rate 20.0 03/25/2011 [facility] Temperature Oral (F) 97.8 F 03/25/2011 [facility] Respitory Rate 20.0 03/25/2011 [facility] Heart Rate 98.0 03/25/2011 [facility] Systolic (mm Hg) 163.0 03/25/2011 [facility] dical Center Diastolic (mm Hg) 82.0 03/25/2011 [facility] edical Center Diastolic (mm Hg) 68.0 03/25/2011 [facility] edical Center Systolic (mm Hg) 156.0 03/25/2011 [facility] dical Center Temperature Oral (F) 97.7 F 03/25/2011 [facility] Heart Rate 95.0 03/25/2011 [facility] Respitory Rate 20.0 03/25/2011 [facility] Weight 90.909 03/22/2011 [facility] Height 149.86 cm 03/22/2011 [facility] Weight 90.909 03/22/2011 [facility] Height 149.86 cm 03/22/2011 [facility] Diastolic (mm Hg) 56.0 03/15/2011 [facility] edical Center Systolic (mm Hg) 128.0 03/15/2011 [facility] dical Center Respitory Rate 16.0 03/15/2011 [facility] Heart Rate 85.0 03/15/2011 [facility] Temperature Oral (F) 96.6 F 03/15/2011 [facility] Diastolic (mm Hg) 91.0 03/15/2011 [facility] edical Center Systolic (mm Hg) 121.0 03/15/2011 [facility] dical Center Respitory Rate 18.0 03/15/2011 [facility] Heart Rate 78.0 03/15/2011 [facility] Temperature Oral (F) 98.2 F 03/15/2011 [facility] Diastolic (mm Hg) 39.0 03/15/2011 [facility] edical Center Systolic (mm Hg) 170.0 03/15/2011 [facility] dical Center Respitory Rate 18.0 03/15/2011 [facility] Temperature Oral (F) 98.0 F 03/15/2011 [facility] Heart Rate 93.0 03/15/2011 [facility] Weight 83.665 03/14/2011 [facility] Height 149.86 cm 03/14/2011 [facility] Heart Rate 97.0 03/07/2011 [facility] Respitory Rate 20.0 03/07/2011 [facility] Systolic (mm Hg) 140.0 03/07/2011 [facility] Diastolic (mm Hg) 66.0 03/07/2011 [facility] Temperature Oral (F) 98.4 F 03/07/2011 [facility] Diastolic (mm Hg) 69.0 03/07/2011 [facility] Systolic (mm Hg) 140.0 03/07/2011 [facility] Center Respitory Rate 20.0 03/07/2011 [facility] Temperature Oral (F) 98.6 F 03/07/2011 [facility] Heart Rate 115.0 03/07/2011 [facility] Systolic (mm Hg) 131.0 03/06/2011 [facility] Temperature Oral (F) 97.6 F 03/06/2011 [facility] Respitory Rate 18.0 03/06/2011 [facility] Heart Rate 104.0 03/06/2011 [facility] Diastolic (mm Hg) 44.0 03/06/2011 [facility] Height 149.86 cm 02/26/2011 [facility] Weight 90.909 02/26/2011 [facility] Temperature Oral (F) 98.2 F 02/26/2011 [facility] Heart Rate 90.0 02/26/2011 [facility] Respitory Rate 18.0 02/26/2011 [facility] Systolic (mm Hg) 154.0 02/26/2011 [facility] Center Diastolic (mm Hg) 54.0 02/26/2011 [facility] Temperature Oral (F) 98.9 F 02/26/2011 [facility] Heart Rate 93.0 02/26/2011 [facility] Respitory Rate 18.0 02/26/2011 [facility] Systolic (mm Hg) 153.0 02/26/2011 [facility] Center Diastolic (mm Hg) 60.0 02/26/2011 [facility] Temperature Oral (F) 98.7 F 02/26/2011 [facility] Respitory Rate 20.0 02/26/2011 [facility] Systolic (mm Hg) 149.0 02/26/2011 [facility] Center Diastolic (mm Hg) 62.0 02/26/2011 [facility] Heart Rate 95.0 02/25/2011 [facility] Weight 100.0 02/20/2011 [facility] Height 149.86 cm 02/19/2011 [facility] Weight 100.0 02/19/2011 [facility] Heart Rate 104.0 02/19/2011 [facility] Temperature Oral (F) 98.6 F 02/19/2011 [facility] Respitory Rate 20.0 02/19/2011 [facility] Systolic (mm Hg) 128.0 02/19/2011 [facility] Center Diastolic (mm Hg) 63.0 02/19/2011 [facility] Respitory Rate 20.0 02/19/2011 [facility] Systolic (mm Hg) 115.0 02/19/2011 [facility] d[facility] Center Diastolic (mm Hg) 58.0 02/19/2011 [facility] Heart Rate 110.0 02/19/2011 [facility] Temperature Oral (F) 97.5 F 02/19/2011 [facility] Diastolic (mm Hg) 64.0 02/18/2011 [facility] Temperature Oral (F) 98.4 F 02/18/2011 [facility] Heart Rate 108.0 02/18/2011 [facility] Respitory Rate 18.0 02/18/2011 [facility] Systolic (mm Hg) 152.0 02/18/2011 [facility] Center Height 149.86 cm 01/31/2011 [facility] Weight 100.455 01/31/2011 [facility] Systolic (mm Hg) 116.0 01/31/2011 [facility] d[facility] Center Diastolic (mm Hg) 55.0 01/31/2011 [facility] Peripheral Pulse Rate 67.0 01/31/2011 [facility] Respitory Rate 20.0 01/31/2011 [facility] Temperature Oral (F) 98.5 F 01/31/2011 [facility] Peripheral Pulse Rate 65.0 01/31/2011 [facility] Systolic (mm Hg) 148.0 01/31/2011 [facility] d[facility] Center Diastolic (mm Hg) 58.0 01/31/2011 [facility] Center Diastolic (mm Hg) 62.0 01/31/2011 [facility] Center Peripheral Pulse Rate 64.0 01/31/2011 [facility] Systolic (mm Hg) 153.0 01/31/2011 [facility] Respitory Rate 21.0 01/31/2011 [facility] Temperature Oral (F) 97.8 F 01/31/2011 [facility] Respitory Rate 16.0 01/31/2011 [facility] Temperature Oral (F) 98.1 F 01/31/2011 [facility] Height 149.86 cm 01/23/2011 [facility] Weight 89.0 01/23/2011 [facility] Encounters Location Location Encounter Encounter Reason Attending ADM DC Stat us Source Details Type Number For Provider Date Date Visit [facility] AA [id number] LIFE ANKUR CARABALLO 01/23 01/23 Active [facility] 0 FLIGHT [facility] Inpatient [id number] BRAIN KELLEY DAY 01/23 01/31 Act kimberly [facility] 7 MASS/DONNIE [facility] KE Center IR [id number] BRAIN MEILANI 01/31 02/19 Active 4 MASS MAP Rehabili tation [facility] Inpatient [id number] HYDROCEP KELLEY DAY 02/19 02/26 A ctive [facility] 0 HALUS [facility] IR [id number] SDH MEILANI 02/26 03/07 Active 9 MAPA Rehabili tation [facility] OU [id number] DEHYDRAT MI 03/14 03/15 Active M [facility] 1 ION KORIMILLI [facility] Inpatient [id number] DEHYDRAT NOÉ 03/22 03/25 Activ e [facility] 2 ION,PAIN [facility] CONTROL Center MNA Phone [id number] 08/16 08/18 Misch er Neurosurger Message Neur o y [facility] Inpatient [id number] Malia 08/16 08/20 [facility] Stendal 5 Dayan [facility] Inpatient [id number] Sadi 09/09 09/10 Jorge Alberto 0 Okpara [facility] Inpatient [id number] Kasi Scottby 09/12 09/20 [facility] Stendal [facility] Observation [id number] David 09/21 09/23 [facility] Jorge Alberto 3 Hellen [facility] Outpt Diag [id number] Suur 10/21 10/22 [facility] 3 Bil P earland [facility] Outpt Diag [id number] Suur 11/18 11/19 [facility] 4 Bil P earland [facility] Emergency [id number] Abel 11/29 11/29 [facility] Stendal 6 Stan [facility] Inpatient [id number] Luther 12/24 01/10 [facility] 7 Taj [facility] Inpatient [id number] Jai 02/05 03/04 [facility] Jorge Alberto 0 Hernán [facility] Inpatient [id number] Keagan 11/21 12/19 [facility] 5 Christopher [facility] Outpt Diag [id number] Andre 01/04 01/05 [facility] 5 Fernandez Her restrepo [facility] [place] [place] Inpatient [id number] David 02/14 02/26 [facility] 0 Hellen [facility] Procedures Procedure Code Date Perfomer Comments Source Transcatheter [id number] 02/21/2019 [facility] retrieval, Medical percutaneous, of Center intravascular foreign body (eg, fractured venous or arterial catheter), includes radiological supervision and interpretation, and imaging guidance (ultrasound or fluoroscopy), when performed Selective catheter [id number] 08/19/2018 [facility] placement, vertebral Medi roger artery, unilateral, Cente r with angiography of the ipsilateral vertebral circulation and all associated radiological supervision and interpretation, includes angiography of the cervicocerebral arch, when performed Insertion or [id number] 01/26/2011 [facility] Replacement of Skull Medi roger Tongs or Halo Center Traction Device Other Excision or [id number] 01/26/2011 [facility] Lesion Med ical or Tissue of Brain Center Excision of Lesion or [id number] 01/24/2011 [facility] Tissue of Cerebral Medica l [place] Intracranial Pressure 01.10 01/24/2011 [facility] Transfusion of Packed [id number] 01/24/2011 [facility] Cervical laminectomy [id number] [facility] her Neuro,[facility], DOMONIQUE Azul, DOMONIQUE Kelly,[facility] section [id number] [facility] Neuro,[facility], DOMONIQUE Azul, DOMONIQUE Kelly,[facility] Resection [id number] [facility] Neuro,[facility], DOMONIQUE Azul, DOMONIQUE Kelly,[facility] Shunt construction [id number] [facility], DOMONIQUE Azul, DOMONIQUE Kelly,[facility] Tonsillectomy [id number] [facility] Neuro,[facility] Azul, DOMONIQUE Kelly,[facility] Assessment and Plan Assessment and Plan Date Source Extracted from:Title: Neurology Progress Note 02/27/2020 [facility] Author: Marlen Parra MD Date: 02/25/20 Neurology [...] who presented as a direct transfer from [facility] due to concerns of MG exacerbation. She initially pres ented one week ago to [facility] [...] problems. She was broug ht back to [facility] where she was eval uated by Neurology and didn't think that it was a MG exacerbation so patient's family requested transfer to [facility]. 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 Parra, and agree with the documentation and findings as recorded. I concur with the plan as outlined. Clovis Miguel MD Professor of Neurology Extracted from:Title: Consult Note Author: Akash Skaggs MD Date: 02/25/20 75-year-old female with a past medical h istory of dementia,and angioma status post resectionwith INSURANCE PREMIUM AUDITOR shunt, type 2 diabetes, hypertension, hyperlipidemia, CAD,chronic [...] who presented as a direct transfer from [facility] due to concerns of MG exacerbation. She initially prese nted one week ago to [facility] with hypoglicemia and was found to have PNA. She completed antibiotics (Cefuroxime and Clynda per external Rx) and was discharged 5 days ago with PT. Per penny fitzgerald, the next day of her discharged s he suddenly developed trouble standing due to lower extremity weakness, hypophonia and dysarthria. She didn't have any respiratory problems. She was tiffanie t back to [facility] where she was evalu ated by Neurology and didn't think that it was a MG exacerbation so patient's family requested transfer to [facility]. At [facility] patient had MBST which showed severe [...] 4/5 Tricep 4+/5 4+/5 Bicep 5/5 5/5 Fuel Storage Technician 5/5 5/5 Iliopsoas 4/5 4/5 Quadricep 4/5 [...] so family would like to avoid IVIG. TRENCH DIGGER HELPER Possible MG Exacerbation - Admit to 5J - posteriorly transferred to [facility] for observat ion - NIF, [...] Pending THE FOLLOWING WERE PRESENT ON ADMISSION: TRENCH DIGGER HELPER- Dementia Cardiovascular- HTN, HFrEF 50% Infectious- Leukocytosis [...] was updated about plan in the evening. TRENCH DIGGER HELPER MG Exacerbation - Monitor closely - NIF, FVC q3-6 hours - Continue home pyridostigmine 60mg q8H - Resume home prednisone 20mg daily - Incentive spirometery - Continue home CPAP at night Dysphagia - NPO per speech therapy - Pending MBS - Can give meds in puree/pudding per WASTE PICKER PSYCH Depression Anxiety - Continue home sertraline [...] consult Marlen Parra MD PGY-2 | Neurology [facility] Neurology staff Teaching physician statement I reviewed the residents note, personall y reviewed all the patients labs and imaging studies and personally performed a complete neurological exam. I discussed the assessment and plan of care and agree with the plan as outlined in the resident's note. David Macedo, DO [facility], Neurohospitalist Paper Sorter And Counter of Neurology Extracted from:Title: General Neurology Progress Note 2019 [facility] Author: Marlen Parra MD Date: 02/19/20 Neurology [...] who presented as a direct transfer from [facility] due to concerns of MG exacerbation. She [facility] [...] problems. She was broug ht back to [facility] where she was eval uated by Neurology and didn't think that it was a MG exacerbation so patient's family requested transfer to [facility]. At [facility] patient had MBS T which showed [...] at bedside and answered all his questions. 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 David Macedo DO [facility], Neurohospitalist Paper Sorter And Counter of Neurology Extracted from:Title: Transfusion Medicine/Apheresis Consult ation Note Author: Doug Warnre MD Date: 02/17/20 Transfusion Medicine/Apheresis Consultation Note [...] who presented as a direct transfer from [facility] due to concerns of MG exacerbation. She initially pres ented one week ago to [facility] with hypoglycemia and was found to have PNA. She completed antibiotics (Cefuroxime and Clynda per external Rx) and was discharged 5 days ago with PT. Per , the next day of her discharged she suddenly developed trouble standing due to lower extremity weakness, hypophonia and dysarthria. She didn't have any respiratory problems. She was broug ht back to [facility] where she was eval uated by Neurology and didn't think that it was a MG exacerbation so patient's family requested transfer to [facility]. At [facility] patient had MBS T which showed [...] Thanks for consultation. Mariajose Garsia MD ID# [id number] Extracted from:Title: General Neurology HPI Author: Natalie [...] who presented as a direct transfer from [facility] due to concerns of MG exacerbation. She initially prese nted one week ago to [facility] with hypoglicemia and was found to have PNA. She completed antibiotics (Cefuroxime and Clynda per external Rx) and was discharged 5 days ago with PT. Per h band, the next day of her discharged s he suddenly developed trouble standing due to lower extremity weakness, hypophonia and dysarthria. She didn't have any respiratory problems. She was tiffanie t back to [facility] where she was evalu ated by Neurology and didn't think that it was a MG exacerbation so patient's family requested transfer to [facility]. At [facility] patient had MBST which showed severe [...] 4/5 Tricep 4+/5 4+/5 Bicep 5/5 5/5 Fuel Storage Technician 5/5 5/5 Iliopsoas 4/5 4/5 Quadricep 4/5 [...] so family would like to avoid IVIG. TRENCH DIGGER HELPER Possible MG Exacerbation - Admit to - posteriorly transferred to [facility] for observat ion - NIF, [...] Pending THE FOLLOWING WERE PRESENT ON ADMISSION: TRENCH DIGGER HELPER- Dementia Cardiovascular- HTN, HFrEF 50% Infectious- Leukocytosis [...] was updated about plan in the evening. TRENCH DIGGER HELPER MG Exacerbation - Monitor closely - NIF, FVC q3-6 hours - Continue home pyridostigmine 60mg q8H - Resume home prednisone 20mg daily - Incentive spirometery - Continue home CPAP at night Dysphagia - NPO per speech therapy - Pending MBS - Can give meds in puree/pudding per WASTE PICKER PSYCH Depression Anxiety - Continue home sertraline [...] consult Marlen Parra MD PGY-2 | Neurology [facility] Neurology staff Teaching physician statement I reviewed the residents note, personall y reviewed all the patients labs and imaging studies and personally performed a complete neurological exam. I discussed the assessment and plan of care and agree with the plan as outlined in the resident's note. David Macedo DO [facility], Neurohospitalist Paper Sorter And Counter of Neurology Extracted from:Title: Progress Note 12/20/2019 [facility] Author: Madhavi Calvin MD Date: 12/19/19 Ms. Floyd is a 74 y/o F with PMH dementia, HTN, obesity, T2DM, AK with prior cardiac arrest 35 years ago, myasthenia gravis on prednisone, hypothyroidism who presented on 11/21 from her TAN s/ p fall. Found to have cervical [...] C5-6 ACDF, posterior spinal fusion with open [id number] laminectomy. The patient was intubated and prone [...] as other placementversusPEG tube. 1.C7 cervical fracture(S12.600A) [place] J collar Status postC5-6 ACDF, posterior spinal [...] right frontal encephalomalaciaand right frontal mass resection, INSURANCE PREMIUM AUDITOR shunt with enlarged planum sphenoidal meningioma in [...] 23.Hypophosphatemia(E83.39) Repleted Lovenox subcu Pending discharge to [facility] [...] HFrEF, meningioma s/p resection in 2010 with INSURANCE PREMIUM AUDITOR shunt complicated by right eye blindness from [...] Medical History: As above. Past Surgical History: INSURANCE PREMIUM AUDITOR shunt placement Tonsillectomy Cervical laminectomy Recent C5-6 [...] NAD HEENT: Bruising on face and neck/shoulders. [place] J collar i n place. LUNGS: Clear [...] Neck flexion/extension was not testable because of [place] J collar. Motor: With significant encouragement, p [...] HFrEF, meningioma s/p resection in 2010 with INSURANCE PREMIUM AUDITOR shunt complicated by right eye blindness from [...] Please page [place] [phone] with any questions. Emmanuel Thayer MD PGY-3, Neurology MSO# [id number] [facility] [place] by [facility] THE FOLLOWING WERE PRESENT ON INITIAL ASSESSMENT: TRENCH DIGGER HELPER -Myasthenia gravis, C7 cervical fracture from trauma [...] decreases to any degree please reconsult neurology ([phone]) to discuss cristian sma exchange. Patient's called [facility] on 12/06/2019 to advise that she [...] Coy MD Extracted from:Title: Progress Note 11/28/2019 [facility] Author: Dell Carrasco MD Date: 11/28/19 1.C7 cervical fracture(S12.600A) 2.Hyperextension injury of cervical spine(S19.80XA) Cleared by cardiology now to have spine surgery. To OR tomorrow withneurosurgery-spine. [place]-J at all times. 3.Lumbar compression fracture(S32.000A) Old per Neurosurgery. 4.Traumatic mediastinal hematoma(S27.899A) Had negative esophagogram. Vascular injury ruled out per imaging. Per Trauma, likely secondary to C7 fracture. 5.HTN - Hypertension(I10) Controlled on norvasc. 6.Diabetes type 2, uncontrolled(E11.65) Continue [id number] BID and continue lispro regular insulin S [...] obesity, diabetes mellitus, questionable history of prior AK/cardiac arrest ~35 y ears ago "during an [...] Ms. Parikh has been seen by a milieu coordinator in the past, Dr. Sanchez Demarco at [facility]. She was [...] of above. Ms. Parikh is admitted to [facility] after a tri p and fall resulting [...] FAMILY HISTORY: Father - in his 70s "AK" SOCIAL HISTORY: Patient is , she lives in an assisted living center. 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 Denies history of smoking, alcohol or illicit [...] 20mg PO QD Sertraline 25mg PO QD [id number] PO TID Labs: 11/21 0735 Lactic Acid [...] diabetes mellitus, morbid obesity, questionable hx of AK ~35 years ago during arteriogram, and hx of falls is admitted to [facility] s/p fall on 11/21/19 with hype rextension of C7. Cardiology consulted for preoperative risk stratification. 1. Preoperative risk stratification in p atient with multiple co-morbidities and risk factors for coronary artery disease - Pt has been followed by a milieu coordinator in [place], Dr. Sanchez Demarco, though she has not seen Dr. Demarco in ~8 months and he has since retired from practice. No r ecent stress test or heart catheterization - No recent hx of chest pain/pressure/sh ortness of breath/syncope/near syncope. Falls are all reported to be mechanical in a patient with known Myasthenia gravis - Pt with questionable hx of cardiac arr est vs AK ~35 years ago during an arteriogram - [...] APRN, MSN, ACNP- Department of Cardiology Pager# [phone] MSO# [id number] Addendum by Sanya Gatica MD on 11/22/2019 22:35 Discussed with the cardiology HULL BUILDER's team, Melina alexis. Patient was getting MRI, [...] Extracted from:Title: Cardiology Progress Note * 11/28/2019 [facility] Author: Sanya Gatica MD Date: 11/27/19 Impression and Plan Discussed with the cardiology HULL BUILDER's team, Ms. Arlette Gifford. 74 year-old woman with PMHX significant for dementia, hyperlipidemia, hypertension, diabetes mellitus, morbid obesity, questionable hx of AK ~35 years ago during arteriogram, and hx of falls is admitted to [facility] s/p fall on 11/21/19 with hype rextension of C7. Cardiology consulted for preoperative risk stratification. Clinically unchanged. 1. Preoperative cardiac evaluation and risk stratification - Patient has multiple co-morbidities an d risk factors for CAD including diabetes mellitus, morbid obesity, hyperlipidemia, hypertension - Patient follows up with milieu coordinator gucci Giordano, Dr. Sanchez Demarco, though she [...] - Patient with h/o cardiac arrest vs AK ~35 years ago during an arteriogram, spouse [...] a new COVID test today. The cardiology HULL BUILDER, Ms. Gifford has discus sed the plan of care with bedside RN and with Dr. Perry via perfect serve. Extracted from:Title: Cardiology Consult Note Author: Melina Gomez HULL BUILDER Date: 11/22/19 CONSULTATION PATIENT NAME: Langoff. Franci Barrera ADMISSION DATE: 11/22/2019 CONTSULTED PHYSICIAN: Dr. Sanya Gatica SERVICE: Cardiology CHIEF COMPLAINT: s/p trip and fall on ma tt at her assisted living facility on 11/21/19 HISTORY OF PRESENT ILLNESS: 74 year-old woman with a PMHX significant for dementia, hyperlipidemia, hypertension, morbid obesity, diabetes mellitus, questionable history of prior AK/cardiac arrest ~35 y ears ago "during an [...] Ms. Parikh has been seen by a milieu coordinator in the past, Dr. Sanchez Demarco at [facility]. She was [...] of above. Ms. Parikh is admitted to [facility] after a tri p and fall resulting [...] FAMILY HISTORY: Father - in his 70s "AK" SOCIAL HISTORY: Patient is , she lives in an assisted living center. 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 Denies history of smoking, alcohol or illicit [...] 20mg PO QD Sertraline 25mg PO QD Kufymxxntahlhb38ag PO TID Labs: 11/21 0735 Lactic Acid [...] diabetes mellitus, morbid obesity, questionable hx of AK ~35 years ago during arteriogram, and hx of falls is admitted to [facility] s/p fall on 11/21/19 with hype rextension of C7. Cardiology consulted for preoperative risk stratification. 1. Preoperative risk stratification in p atient with multiple co-morbidities and risk factors for coronary artery disease - Pt has been followed by a milieu coordinator in [place], Dr. Sanchez Demarco, though she has not seen Dr. Demarco in ~8 months and he has since retired from practice. No r ecent stress test or heart catheterization - No recent hx of chest pain/pressure/sh ortness of breath/syncope/near syncope. Falls are all reported to be mechanical in a patient with known Myasthenia gravis - Pt with questionable hx of cardiac arr est vs AK ~35 years ago during an arteriogram - [...] findings and plan with Dr. En palomares. Melnia Gomez APRN, MSN, ACNP- Department of Cardiology Pager# [phone] MSO# [phone] Addendum by Sanya Gatica MD on 11/22/2019 22:35 Discussed with the cardiology HULL BUILDER's team, Ms. Melina alexis. Patient was getting [...] Cardiology Extracted from:Title: Neurology Discharge Summary 09/20/2018 [facility] Author: Sean Coy MD Date: 09/19/18 INPATIENT NEUROLOGY DISCHARGE SUMMARY Patient Name: Franci Floyd Date of Admission: 09/12/18 Date of Discharge: 09/19/18 Admission Diagnosis: Weakness, Dysphagia Discharge Diagnoses: Bulbar Myasthenia Gravis Consults Obtained: Opthalmology, ENT Brief HPI: Mrs. Floyd is a 73 y.o. 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 Please call . Clinic located at [address], [address] [place], [place] [address]. PCP follow-up within 2 weeks Discharge Instructions: Please continue to take all medications as prescribed and follow up as intstructed. 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 Discharge To Location: Home Please call our nurse coordinator at if you have any questions/concerns. 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 Has indicated that she wants her to be her medical power of tree feller permanently. He agrees with full code. 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 Supportive medicine was consulted for goals of care discussion. #Goals of care/palliative -The patient does not have an advanced directive. -CODE STATUS is currently full code. -The next of kin is the patient's [phone]. -Unable to discussgoals of care today si [...] admission. Please start the patient onsenna2 tabletstwice daily,RyvvRNE86ychwv twice dailyandbisacodyl suppository as neededfor constipation. -Pain: [...] page us via the Memor jumana Azul [facility] page computer operator or via the following pager: [phone], [phone]. Nely Britt MD PGY2 [facility] Internal Medicine ATTENDING ATTESTATION I have [...] 3 days or more, recommend bisacodyl supp IL BID PRN cons tipation. If no BM 5 days or more sugges t milk and molasses enema up to every 8 hours until BM. We have discussed the patient with primary team physician. Thank you for the opportunity to partici mckeon in this patient's care. We will follow along with you. [facility] Pager:#[phone](24 hours / 7 days) Extracted from:Title: Discharge Summary 09/10/2018 [facility] Author: Sadi Cortés MD Date: 09/09/18 Discharge Information Discharge Summary Information: Discharg e diagnosis, Discharge medications (See Discharge Medications). Fluctuating left eye vision loss Dysphagia Essential hypertension Hyperlipidemia History of INSURANCE PREMIUM AUDITOR shunt History of craniotomy status post meningioma resection Discharge Plan Discharge Summary Plan Discharge Status: stable. Discharge instructions given. Discharge disposition: Higher level of care. Discharge planning greater than 30 minutes Extracted from:Title: Clinical Document Author: Kasi Amato MD Date: 09/09/18 NEUROLOGY and CRITICAL CARE MEDICINE [facility] Consultation / Progress Note Assessment [...] seeking to go to the Medical Center ([facility]) They wish to continue to seek medical care here at [facility]. History of Present Illness 73F Presents [...] GI No nausea, vomiting, diahhrea, melena, blood IL. No new urgency, frequency, pain, or urine [...] was articulate. Fluent, if slow. Comprehension intact. Automobile Damage Appraiser were surprisingly strong bilaterally. The patient was [...] artery. No flow-limiting stenotic lesions in both security installation sales technician. Aberrant right subclavian artery CT Chest (08/18/18) [...] clavicular. 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 Orbits and globes [...] (SEP 08) PTT 32.0 (SEP 08) [facility] (09/07/18) WBC 7.4, normal differential. Hgb 17.0, [...] loss Dysphagia Essential hypertension Hyperlipidemia History of INSURANCE PREMIUM AUDITOR shunt History of craniotomy status post meningioma resection Pending neurology evaluation Failed bedside swallow eval. Speech therapy to evaluate the patient PT/OT eval and treat Will reconsult meds once achieved by [facility] per protocol Supportive care management Extracted from:Title: Ophthalmology Consult Note 08/20/2018 [facility] Author: Sivan Thomas MD Date: 08/17/18 CONSULTATION OPHTHALMOLOGY PATIENT NAME: FRANCI FLOYD MR #: [id number] ROOM: [place] [address] REQUESTING TEAM/ATTENDING: ED DATE OF CONSULT: 08/17/2018 CONSULTING ATTENDING: Kalani Jacobo MD CONSULTING RESIDENT: Sivan Laws MD REASON FOR CONSULT: left ptosis CHART REVIEWED: YES HISTORY OF PRESENT ILLNESS: 73 year old female with HTN, HLD, planum sphenoidal meningioma, right frontal craniotomy for meningioma s/p resection in 2010, hydrocephalus s/p craniectomy and INSURANCE PREMIUM AUDITOR shunt, cr anioplasty in 2011 and POH [...] tment to follow up with her primary charhouse worker or Dr. Kalani Jacobo at the [facility] upon discharge (Located: [address] [place] [address], 18th floor, ) or i f patient has a [employer] Card/ has pending application they can follow up at [facility] ([address] [address] ) Sivan Laws MD Ophthalmology PGY2 [facility] Plan of Care No Data Provided for This Section Social History Social History Date Source Social History TypeResponse 09/08/2018 [facility] Substance Abuse Use: None. Alcohol Current, [...] [facility] Alcohol Current, Frequency: 1-2 times per year. [...]
--- OUTSIDE RECORDS SUMMARY | 2020-04-11 16:40 | XMS REPORT | Summary of Care ---
:1945 Author Organization [facility] Address [address] [place] [place] [address]- Encounter HQ Marshallntr_sebastian(FIN) [id number] Date(s): 02/15/20 - 02/27/[address] Professional Services provided by [facility] [place] [address]- Discharge Disposition: Residential Facility Attending Physician: Clovis Miguel MD Admitting [...] hyperglycemia(Confirmed) Diabetes type 2, Active uncontrolled(Confirmed) 1right [id number] Allergies, Adverse Reactions, Alerts Substance Reaction Severity Status penicillins1 rash Active ciprofloxacin Active erythromycin2 Active phenobarbital rash Active gabapentin3 Active aspirin4 severe chest pain Active immune globulin intravenous5 Act kimberly cefepime Active Cortizone-10 Active Adhesive Tape6 Active PHENobarbital7 Active 1Data migrated from [employer] on 01/22/15. Originally documented as PCN.2Data migrated from [employer] on 01/22/15. Originally documented as ERYTHROMYCIN.3 [id number] migrated from [employer] on 01/22/15. Originally documented as ASPIRIN.5Husband called hospital on 12/06/19 and stated that the pt was allergic to PAAB3Lnje migrated from [employer] on 08/01/15. Originally [...] Drug Form: TAB, Dosing Weight 84.545, kg, [id number], Start date: 02/22/20 20:00:00 CDT, Stop date: 02/28/20 8:00:00 CDT, 0 Start Date: 02/22/20 Stop Date: 02/27/20 Status: DiscontinuedBactrim DS 800 mg- 160 mg oral tablet 1 tab, PO, [id number], 0 Refill(s) Start Date: 02/27/20 Stop Date: 02/27/20 Status: DeletedBactrim DS 800 mg- 160 mg oral tablet 1 tab, PO, [id number], X 1 day, # 2 tab, 0 [...] Start Date: 02/17/20 Stop Date: 02/27/20 Status: ZanykggafacbK-92-S 12.5 gm, 25 mL, Route: IVP, Drug Form: INJ, Dosing Weight 84.545, kg, PRN, PRN Blood Glucose Results, Start date: 02/21/20 20:57:00 CDT, Duration: 30 day, Stop date: 03/22/20 20:56:00 CDT, 0 Start Date: 02/21/20 Stop Date: 02/27/20 Status: RlemjdnztajkW-32-Q 25 gm, 50 mL, Route: IVP, Drug [...] shake vigorously. WASTE:F/P - Black; E - Savored Trash BinStable for 31 days at room [...] exclude Patients with feedingtube less than 14 [place]ian (Dobhoff, J-tube etc) and pediatric and patients. [...] who presented as a direct transfer from [facility] [place] [facility] due to concerns of MG exacerbation. Her [...] the resident, Dr. Doug Warner's, interpretation. CPT: 09688-YX *NA* (02/17/20 12:10 PM) Phosphorus [2.5-4.5 3.3 [...] by the estimated BMI.4Result Comment: 02/17/2020 14:11 [id number] "Significant Findings of Positive Antibody Screen_ called [...] who presented as a direct transfer from [facility] [place] [facility] due to concerns of MG exacerbation. She initially presented one week ago to [facility] [place] [facility] wit h hypoglicemia and was found to have PNA. She completed antibiotics (Cefuroxime and Clynda per external Rx) and was discharged 5 days ago with PT. Per , t he next day of her discharged she sudden ly developed trouble standing due to lower extremity weakness, hypophonia and dysarthria. She didn't have any respiratory problems. She was brought back to [facility] where she was evaluated by Neurol pat and didn't think that it was a MG exacerbation so patient's family requested transfer to [facility]. At [facility] patient had MBST which showed severe dysphagia. Cu rrently, patient has no dysarthria but c ontinuos with hypophonia. She denies any SOB. Due to her dementia she is a poor historian but denies any weakness. Hospital course: 02/15: unable to obtain IV access, [facility] medicine consulted 02/16: plex day 06/05 02/17: [...] 160 mg oral tablet) 1 tab PO [id number] 02/17/20 thiamine 200 mg PO Daily Unscheduled [...] 5/5 strength in bilateral biceps/ triceps/deltoid, hand machine overhauler 5/5, AG in b/l lower extremities no [...] n respiratory function as well as hypophonia. HELP DESK REPRESENTATIVE MG Exacerbation - Weakness likely multifactorial 2/t [...] Code Dispo: SNF vs back to personal chcf /assisted living with home health PT/OT/FLIGHT COMMUNICATIONS SPECIALIST Marlen Parra MD PGY-2 | Neurology [facility] CPT: 13234 DX: G70.01 I have examined this patient with the re sident, Dr. Parra, and agree with the documentation and findings as recorded. I concur with the plan as outlined. Clovis Miguel MD Professor of Neurology Extracted from: Title: Consult Note Author: Akash Skaggs MD Date: 01/31 11/18 75-year-old female with a past medical h istory of dementia,and angioma status post resectionwith BLISTER RUST ERADICATOR shunt, type 2 diabetes, hypertension, hyperlipidemia, CAD,chronic [...] r econsult as needed Dr. Akash Lamar (Noemi)[facility] Hospitalist Medicine Please contact me via Perfect[employer] [...] who presented as a direct transfer from [facility] [place] [facility] due to concerns of MG exacerbation. She initially presented one week ago to [facility] [place] [facility] with hypoglicemia and was [...] She was brought back to [facility] where she was evaluated by Neurolo gy and didn't think that it was a MG exacerbation so patient's family requested transfer to [facility]. At [facility] patient had MBST which showed [...] 4/5 Tricep 4+/5 4+/5 Bicep 5/5 5/5 Snaker 5/5 5/5 Iliopsoas 4/5 4/5 Quadricep 4/5 [...] so family would like to avoid IVIG. HELP DESK REPRESENTATIVE Possible MG Exacerbation - Admit to - posteriorly transferred to [facility] for observation - NIF, FVC q3-6 hours [...] Pending THE FOLLOWING WERE PRESENT ON ADMISSION: HELP DESK REPRESENTATIVE- Dementia Cardiovascular- HTN, HFrEF 50% Infectious- Leukocytosis [...] was updated about plan in the evening. HELP DESK REPRESENTATIVE MG Exacerbation - Monitor closely - NIF, FVC q3-6 hours - Continue home pyridostigmine 60mg q8H - Resume home prednisone 20mg daily - Incentive spirometery - Continue home CPAP at night Dysphagia - NPO per speech therapy - Pending MBS - Can give meds in puree/pudding per FLIGHT COMMUNICATIONS SPECIALIST PSYCH Depression Anxiety - Continue home [...] consult Marlen Parra MD PGY-2 | Neurology [facility] Neurology staff Teaching physician statement I reviewed the residents note, personall y reviewed all the patient s labs and imaging studies and personally performed a complete neurological exam. I discussed the assessment and plan of care and agr ee with the plan as outlined in the lyudmila law's note. David Macedo DO [facility], Neurohospitalist Residential Pest Control Technician of Neurology
--- OUTSIDE RECORDS SUMMARY | 2020-04-11 16:40 | XMS REPORT | Summary of Care ---
:1945 Author Organization [facility] Address [address] [place] [address]- Encounter HQ Vish_sebastian(VIKKI) [id number] Date(s): 02/15/[address] Professional Services provided by [facility] [place] [address]- Attending Physician: David Macedo DO Admitting Physician: [...] hyperglycemia(Confirmed) Diabetes type 2, Active uncontrolled(Confirmed) 1right [id number] Allergies, Adverse Reactions, Alerts Substance Reaction Severity Status penicillins1 rash Active ciprofloxacin Active erythromycin2 Active phenobarbital rash Active gabapentin3 Active aspirin4 severe chest pain Active immune globulin intravenous5 Act kimberly cefepime Active Cortizone-10 Active Adhesive Tape6 Active PHENobarbital7 Active 1Data migrated from [employer] on 01/22/15. Originally documented as PCN.2Data migrated from [employer] on 01/22/15. Originally documented as ERYTHROMYCIN.3 [id number] migrated from [employer] on 01/22/15. Originally documented as ASPIRIN.5Husband called hospital on 12/06/19 and stated that the pt was allergic to [id number] migrated from [employer] on 08/01/15. Originally [...] contacting prescriberWASTE: F/P - Black; E - [employer] Trash Bin"single patient use only"Stable for 28 [...] exclude Patients with feedingtube less than 14 [place] (Dobhoff, J-tube etc) and pediatric and patients. [...] by the estimated BMI.4Result Comment: 02/17/2020 14:11 [id number] "Significant Findings of Positive Antibody Screen_ called [...] who presented as a direct transfer from [facility] due to concerns of MG exacerbation. She initially presented one week ago to [facility] wit h hypoglicemia and was found [...] [facility] was [facility] by Neurol pat and didn't think that it was a MG exacerbation so patient's family requested transfer to [facility]. At [facility] patient had MBST which showed severe dysphagia. Cu rrently, patient has no dysarthria but c ontinuos with hypophonia. She denies any SOB. Due to her dementia she is a poor historian but denies any weakness. Hospital course: 02[facility]15[facility]: plex day 06/05 [...] at bedside and answered all his questions. LUNG PULLER MG Exacerbation - Weakness likely multifactorial 2/t [...] Marlen Parra MD PGY-2 | Neurology [facility] Neurology staff Teaching physician statement I [...] pain, will change dressing. David Macedo DO [facility], Neurohospitalist Dog Show Judge of Neurology Extracted from: Title: Transfusion Medicine/Apheresis [...] who presented as a direct transfer from [facility] due to concerns of MG exacerbation. She initially presented one week ago to [facility] wit h hypoglycemia and was found [...] [facility] she was evaluated by Neurol pat and didn't think that it was a MG exacerbation so patient's family requested transfer to [facility]. At [facility] patient had MBST which showed severe dysphagia. [...] Thanks for consultation. Mariajose Garsia MD ID# [id number] Extracted from: Title: General Neurology HPI Author: [...] who presented as a direct transfer from [facility] due to concerns of MG exacerbation. She initially presented one week ago to [facility] with hypoglicemia and was found to have PNA. She completed antibiotics (Cefuroxime and Clynda per external Rx) and was discharged 5 days ago with PT. Per , th e next day of her discharged she suddenl y developed trouble standing due to lower extremity weakness, hypophonia and dysarthria. She didn't have any respiratory problems. She was brought back to [facility] where she was evaluated by Neurolo gy and didn't think that it was a MG exacerbation so patient's family requested transfer to [facility]. At [facility] patient had MBST which showed severe dysphagia. [...] Grandparent. Social History: Patient is and l ansno with her . Drinks alcohol 1- 2 [...] 4/5 Tricep 4+/5 4+/5 Bicep 5/5 5/5 Rehabilitation Attendant 5/5 5/5 Iliopsoas 4/5 4/5 Quadricep 4/5 [...] so family would like to avoid IVIG. LUNG PULLER Possible MG Exacerbation - Admit to - posteriorly transferred to [facility] for observation - NIF, FVC [...] Pending THE FOLLOWING WERE PRESENT ON ADMISSION: LUNG PULLER- Dementia Cardiovascular- HTN, HFrEF 50% Infectious- Leukocytosis [...] was updated about plan in the evening. LUNG PULLER MG Exacerbation - Monitor closely - NIF, FVC q3-6 hours - Continue home pyridostigmine 60mg q8H - Resume home prednisone 20mg daily - Incentive spirometery - Continue home CPAP at night Dysphagia - NPO per speech therapy - Pending MBS - Can give meds in puree/pudding per RAYMOND MILL OPERATOR PSYCH Depression Anxiety - Continue home [...] Marlen Parra MD PGY-2 | Neurology [facility] Neurology staff Teaching physician statement I reviewed the residents note, personall y reviewed all the patient s labs and imaging studies and personally performed a complete neurological exam. I discussed the assessment and plan of care and agr ee with the plan as outlined in the lyudmila law's note. David Macedo DO [facility], Neurohospitalist Dog Show Judge of Neurology
--- OUTSIDE RECORDS SUMMARY | 2020-04-11 16:57 | XMS REPORT | Continuity of Care Document ---
:1945 Author Organization [facility] t Address [address] Jenkins. [address] [place] [id number] Care Team Providers Name Role Phone Ayush Scott Primary Care Physician NEOLLE Attending Clinician Unavailable Giovani Miguel Attending Clinician [...] Expiration Date S starr AETNA - MEDICARE [id number] 2013 YELITZA Amanda ukes MGD CAREAETNA 00:00:00 - Medical MEDICARE HMO POS Center [id number] [id number] [facility] [address] CDC REVIEWCDC [id number] [facility] [id number] 00:00:00 - Medica l 05/2020-[place] [address] Problems Condition Condition Condition Status Onset Resolution Last Treating Co mments Source Name Details Category Date Date Treatment Clinician Date MYASTHENIA Diagnosis Active 2020-03-01 Memoria GRAVIS 02-14 21:46:00 l WITH ACUTE 00:00: Berto gomez EXACERBATI MYASTHENIA 00 O GRAVIS WITH ACUTE EXACERBATI O Active 02/15/2020 [facility] Myasthenia Myasthenia Disease Active [facility] grav[facility] gravis 02[facility]10 [facility] - with acute with acute 00:00: Me dical exacerbati exacerbati 00 Ce nter on on C-7,T-4 Diagnosis Active 2019-12-14 Me moria FX,ESOPHAG - 09:22:00 l EAL TEAR C-7,T-4 03:51: Gerda nn FX,ESOPHAG 00 EAL TEAR Active 11/21/2019 [facility] MYASTHENIA Diagnosis Active 2019-03-10 Memoria GRAVIS 02-05 22:12:00 l WEAKNESS 00:00: Jorge Alberto MYASTHENIA 00 GRAVIS WEAKNESS Active 02/05/2019 [facility] MYASTHENIA Diagnosis Active 2019-01-04 Memoria GRAVIS 12-24 08:31:00 l 00:00: Jorge Alberto MYASTHENIA 00 GRAVIS Active 12/24/2018 [facility] DIABETIC Diagnosis Active 2018-12-08 M emoria 7-01 05:43:00 l DIABETIC 00:00: Berto n 00 Active 11/29/2018 [facility] DYSPHAGIA Diagnosis Active 2018-09-30 Memoria 4-11 08:27:00 l 00:00: [employer] DYSPHAGIA 00 Active 09/09/2018 [facility] RESOLVED Diagnosis Active 2018-09-22 M emoria VISION 4-10 15:15:00 l LOSS IN RESOLVED 00:00: Gerda nn LEFT EYE VISION 00 LOSS IN LEFT EYE Active 09/08/2018 [facility] SLURRED Diagnosis Active 2018-08-26 Me moria SPEECH 3-18 22:20:00 l SLURRED 00:00: Jorge Alberto SPEECH 00 Active 08/16/2018 [facility] STROKE Diagnosis Active 2018-08-16 Mem oria SYMPTOMS 3-18 20:18:00 l STROKE 00:00: [employer] SYMPTOMS 00 Active 08/16/2018 [facility] Trigger Trigger Disease Active [facility] finger finger 9-15 [facility] Benign Problem Active 2018-12-01 Memor ia neoplasm 1-14 21:28:18 l of Benign 00:00: Jorge Alberto cerebral neoplasm 00 meninges of (disorder) cerebral meninges (disorder) Active 06/14/2012 Problem 12/01/2018 Data migrated from [facility] on 01/23/15. Julia [facility], Natasha Acosta [facility] BAD Diagnosis Active 2010-062011-03-22 Mem oria REACTION 0-22 06:07:00 l TO BAD 00:00: [employer] MEDICATION REACTION 00 TO MEDICATION Active 03/22/2011 [facility] DEHYDRATIO Diagnosis Active 2010-062011-03-27 Memoria N,PAIN 0-22 13:56:00 l CONTROL 00:00: Jorge Alberto DEHYDRATIO 00 N,PAIN CONTROL Active 03/22/2011 [facility] LEG CRAMPS Diagnosis Active 2010-062011-03-14 Memoria 0- 04:56:00 l LEG 00:00: Jorge Alberto CRAMPS 00 Active 03/13/2011 [facility] DEHYDRATIO Diagnosis Active 2010-062011-03-17 Memoria N 0-13 12:08:00 l 00:00: Jorge Alberto DEHYDRATIO 00 N Active 03/13/2011 [facility] SDH Diagnosis Active 2011-03-20 Mem oria 02-24 21:57:00 l SDH 06:00: [employer] 00 Active 02/24/2011 Rehabilita tion DM - Problem Active 2011-03-27 Memor ia Diabetes 02-18 08:54:23 l mellitus DM - 00:00: [employer] Diabetes 00 mellitus Active 02/18/2011 Problem 03/27/2011 [facility] HYDROCEPHA Diagnosis Active 2011-03-05 Memoria TANJA 01-31 21:52:00 l 00:00: Jorge Alberto HYDROCEPHA 00 TANJA Active 01/31/2011 [facility] BRAIN MASS Diagnosis Active 2011-02-20 Memoria 01-30 14:11:00 l BRAIN 06:00: [employer] MASS 00 Active 01/30/2011 Rehabilita tion BRAIN Diagnosis Active 2011-02-04 Mem oria MASS/AWAKE 01-23 11:31:00 l BRAIN 00:00: Jorg Ealberto MASS/AWAKE 00 Active 01/23/2011 [facility] LIFE Diagnosis Active 2011-02-20 Mem oria FLIGHT 01-23 14:11:00 l LIFE 00:00: [employer] FLIGHT 00 Active 01/23/2011 [facility] Increased Increased Problem Active Uni vers Pressure [...] d Illness, Berto n unspecifie d 09/11/2018 [facility] Myasthenia Problem 2019-12-26 M emoria gravis 07:49:25 l without [employer] (acute) Myasthenia exacerbati gravis on without (acute) exacerbati on 12/26/2019 [facility] 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:49:25 l syndrome Central Gerda nn at C7 cord level of syndrome cervical at C7 spinal level of cord, cervical initial spinal encounter cord, initial encounter 12/26/2019 [facility] Unspecifie Problem 2019-12-26 M emoria d fracture 07:49:25 l of fourth [employer] thoracic Unspecifie vertebra, d fracture initial of fourth encounter thoracic for closed vertebra, fracture initial encounter for closed fracture 12/26/2019 [facility] Contusion Problem 2019-12-26 Me moria of other 07:49:25 l specified [employer] intrathora Contusion cic of other organs, specified initial intrathora encounter cic organs, initial encounter 12/26/2019 [facility] Unspecifie Problem 2019-12-26 M emoria d fracture 07:49:25 l of second Jorge Alberto lumbar Unspecifie vertebra, d fracture initial of second encounter lumbar for closed vertebra, fracture initial encounter for closed fracture 12/26/2019 [facility] Chronic Problem 2019-12-26 Kalia aida systolic 07:49:25 l (congestiv Chronic Her restrepo e) heart systolic failure (congestiv e) heart failure 12/26/2019 [facility] Delirium Problem 2019-12-26 Mem oria due to 07:49:25 l known Delirium Berto n physiologi due to roger known condition physiologi roger condition 12/26/2019 [facility] Acute Problem 2019-12-26 Memor ia posthemorr 07:49:25 l hagic Acute [employer] anemia posthemorr hagic anemia 12/26/2019 [facility] Hydrocepha Problem 2019-12-26 M emoria tanja, 07:49:25 l unspecifie Berto n d Hydrocepha tanja, unspecifie d 12/26/2019 [facility] Unspecifie Problem 2019-12-26 M emoria d 07:49:25 l protein-ca Berto n bry Unspecifie malnutriti d on protein-ca bry malnutriti on 12/26/2019 [facility] Body mass Problem 2019-12-26 Me moria index 07:49:25 l (BMI) Body Jorge Alberto 40.0-44.9, mass index adult (BMI) 40.0-44.9, adult 12/26/2019 [facility] Ventricula Problem 2019-12-26 emoria r 07:49:25 l tachycardi Berto n a Ventricula r tachycardi a 12/26/2019 [facility] Alkalosis Problem 2019-12-26 Ak moria 07:49:25 l [employer] Alkalosis 12/26/2019 [facility] Encephalop Problem 2019-12-26 M emoria athy, 07:49:25 l unspecifie Berto n d Encephalop athy, unspecifie d 12/26/2019 [facility] Gastrointe Problem 2019-12-26 M emoria stinal 07:49:25 l hemorrhage Berto n , Gastrointe unspecifie stinal d hemorrhage , unspecifie d 12/26/2019 [facility] Unspecifie Problem 2019-12-26 M emoria d 07:49:25 l displaced [employer] fracture Unspecifie of sixth d cervical displaced vertebra, fracture initial of sixth encounter cervical for closed vertebra, fracture initial encounter for closed fracture 12/26/2019 [facility] Unspecifie Problem 2019-12-26 M emoria d 07:49:25 l displaced [employer] fracture Unspecifie of seventh d cervical displaced vertebra, fracture initial of seventh encounter cervical for closed vertebra, fracture initial encounter for closed fracture 12/26/2019 [facility] Unspecifie Problem 2019-12-26 M emoria d 07:49:25 l displaced Jorge Alberto fracture Unspecifie of fourth d cervical displaced vertebra, fracture initial of fourth encounter cervical for closed vertebra, fracture initial encounter for closed fracture 12/26/2019 [facility] Hypothyroi Problem 2019-12-26 M emoria dism, 07:49:25 l unspecifie Berto n d Hypothyroi dism, unspecifie d 12/26/2019 [facility] Old Problem 2019-12-26 Memor ia myocardial 07:49:25 l infarction Old Berto n myocardial infarction 12/26/2019 [facility] Age-relate Problem 2019-12-26 M emoria d 07:49:25 l osteoporos Berto n is without Age-relate current d pathologic osteoporos al is without fracture current pathologic al fracture 12/26/2019 [facility] Hypertensi Problem 2019-12-26 M emoria ve heart 07:49:25 l disease [employer] with heart Hypertensi failure ve heart disease with heart failure 12/26/2019 [facility] Dysphagia, Problem 2019-12-26 M emoria unspecifie 07:49:25 l d Jorge Alberto Dysphagia, unspecifie d 12/26/2019 [facility] Atheroscle Problem 2019-12-26 M emoria rotic 07:49:25 l heart Jorge Alberto disease of Atheroscle chalk[place] rotic coronary heart artery disease of without [place] angina coronary pectoris artery without angina pectoris 12/26/2019 [facility] Physical Problem 2019-12-26 Mem oria restraint 07:49:25 l status Physical Berto n restraint status 12/26/2019 [facility] Unspecifie Problem 2019-12-26 M emoria d dementia 07:49:25 l without [employer] behavioral Unspecifie disturbanc d dementia e without behavioral disturbanc e 12/26/2019 [facility] senior living Problem 2019-12-26 Me moria (current) 07:49:25 l use of Long Jorge Alberto systemic term steroids (current) use of systemic steroids 12/26/2019 [facility] Hypokalemi Problem 2019-12-26 emoria a 07:49:25 l Jorge Alberto Hypokalemi a 12/26/2019 [facility] Obstructiv Problem 2019-12-26 M emoria e sleep 07:49:25 l apnea [employer] (adult) Obstructiv (pediatric e sleep ) apnea (adult) (pediatric ) 12/26/2019 [facility] Other Problem 2019-12-26 Memor ia disorders 07:49:25 l of Other [employer] phosphorus disorders metabolism of phosphorus metabolism 12/26/2019 [facility] Constipati Problem 2019-12-26 M emoria on, 07:49:25 l unspecifie Berto n d Constipati on, unspecifie d 12/26/2019 [facility] Fall on Problem 2019-12-26 Kalia aida same level 07:49:25 l from Fall on Jorge Alberto slipping, same level tripping from and slipping, stumbling tripping without and subsequent stumbling striking without against subsequent object, striking initial against encounter object, initial encounter 12/26/2019 [facility] Other Problem 2019-12-26 Memor ia acute 07:49:25 l postproced Other Gerda nn ural pain acute postproced ural pain 12/26/2019 [facility] Acute pain Problem 2019-12-26 M emoria due to 07:49:25 l trauma Acute [employer] pain due to trauma 12/26/2019 [facility] Major Problem 2019-12-26 Memor ia depressive 07:49:25 l disorder, Major Berto n single depressive episode, disorder, unspecifie single d episode, unspecifie d 12/26/2019 [facility] Abrasion Problem 2019-12-26 Mem oria of right 07:49:25 l upper arm, Abrasion He rmann initial of right encounter upper arm, initial encounter 12/26/2019 [facility] Type 2 Problem 2019-12-26 Memor ia diabetes 07:49:25 l mellitus Type 2 Berto n with diabetes hyperglyce mellitus saloni with hyperglyce saloni 12/26/2019 [facility] Morbid Problem 2019-12-26 Memor ia (severe) 07:49:25 l obesity Morbid [employer] due to (severe) excess obesity calories due to excess calories 12/26/2019 [facility] Type 2 Problem 2019-12-26 Memor ia diabetes 07:49:25 l mellitus Type 2 Berto n with diabetes hypoglycem mellitus ia without with coma hypoglycem ia without coma 0 [facility] Hyperlipid Problem 2019-12-26 M emoria emia, 07:49:25 l unspecifie Berto n d Hyperlipid emia, unspecifie d 12/26/2019 [facility] Chronic Problem 2019-12-26 Kalia aida obstructiv 07:49:25 l e Chronic Jorge Alberto pulmonary obstructiv disease, e unspecifie pulmonary d disease, unspecifie d 12/26/2019 [facility] Hypomagnes Problem 2019-12-26 M emoria emia 07:49:25 l [employer] Hypomagnes emia 0 [facility] Unqualifie Problem 2019-12-26 M emoria d visual 07:49:25 l loss, [employer] right eye, Unqualifie normal d visual vision loss, left eye right eye, normal vision left eye 12/26/2019 [facility] Atheroscle Problem 2019-12-26 M emoria rosis of 07:49:25 l aorta Jorge Alberto Atheroscle rosis of aorta 12/26/2019 [facility] Spinal Problem 2019-12-26 Memor ia stenosis, 07:49:25 l cervical Spinal Berto n region stenosis, cervical region 12/26/2019 [facility] Repeated Problem 2019-12-26 Mem oria falls 07:49:25 l Repeated Berto n falls 12/26/2019 [facility] Laceration Problem 2019-12-26 M emoria without 07:49:25 l foreign [employer] body of Laceration right without forearm, foreign initial body of encounter right forearm, initial encounter 12/26/2019 [facility] Presence Problem 2019-12-26 Mem oria of 07:49:25 l cerebrospi Presence He rmann nal fluid of drainage cerebrospi device nal fluid drainage device 12/26/2019 [facility] Personal Problem 2019-12-26 Mem oria history of 07:49:25 l sudden Personal Berto n cardiac history of arrest sudden cardiac arrest 12/26/2019 [facility] History of Problem 2019-12-26 M emoria falling 07:49:25 l History Jorge Alberto of falling 12/26/2019 [facility] Family Problem 2019-12-26 Memor ia history of 07:49:25 l diabetes Family Berto n mellitus history of diabetes mellitus 12/26/2019 [facility] Personal Problem 2019-12-26 Mem oria history of 07:49:25 l benign Personal Berto n neoplasm history of of the benign brain neoplasm of the brain 12/26/2019 [facility] Other long Problem 2019-12-26 M emoria term 07:49:25 l (current) Other Berto n drug termite helper therapy (current) drug therapy 12/26/2019 [facility] Lethargic Problem Inactiv 2011-03-27 M emoria e 08:54:23 l Jorge Alberto Lethargic Inactive Problem 03/27/2011 [facility] Blindness Problem Resolve 2020-02-29 M emoria of one eye d 21:43:44 l (disorder) Berto n Blindness of one eye (disorder) Resolved Problem 02/29/2020 right eye [facility], DOMONIQUE Azul, DOMONIQUE Kelly,[facility] Diabetes Problem Resolve 2020-02-29 Me moria mellitus d 21:43:44 l (disorder) Diabetes He rmann mellitus (disorder) Resolved Problem 02/29/2020 [facility], DOMONIQUE Azul, DOMONIQUE Kelly,[facility] Heart Problem Resolve 2020-02-29 Kalia aida failure d 21:43:44 l (disorder) Heart Gerda nn failure (disorder) Resolved Problem 02/29/2020 systilic [facility], DOMONIQUE Azul, DOMONIQUE Kelly,[facility] Morbid Problem Resolve 2020-02-29 Kalia aida obesity d 21:43:44 l (disorder) Morbid Herm mercy obesity (disorder) Resolved Problem 02/29/2020 [facility], DOMONIQUE Azul, DOMONIQUE Kelly,[facility] Obstructiv Problem Resolve 2020-02-29 Memoria e sleep d 21:43:44 l apnea Jorge Alberto syndrome Obstructiv (disorder) e sleep apnea syndrome (disorder) Resolved Problem 02/29/2020 [facility], DOMONIQUE Azul, DOMONIQUE Kelly,[facility] Myasthenic Problem Resolve 2020-02-29 Memoria crisis d 21:43:44 l (disorder) Berto n Myasthenic crisis (disorder) Resolved Problem 02/29/2020 [facility], DOMONIQUE Azul Diabetes Problem Resolve 2020-02-29 Me moria mellitus d 21:43:44 l type 2 Diabetes Berto n (disorder) mellitus type 2 (disorder) Resolved Problem 02/29/2020 [facility], DOMONIQUE Azul Altered Problem Active 2018-12-01 Kalia aida mental 21:28:18 l status Altered [employer] (finding) mental status (finding) Active Problem 12/01/2018 [facility] Coronary Problem Active 2020-02-29 Mem oria arterioscl 21:43:44 l erosis Coronary Berto n (disorder) arterioscl erosis (disorder) Active Problem 02/29/2020 [facility], DOMONIQUE Azul,[facility] Leticia,[facility] Craniotomy Problem Active 2018-12-01 M emoria (procedure 21:28:18 l ) Jorge Alberto Craniotomy (procedure ) Active Problem 12/01/2018 [facility] [place],[facility] Hypertensi Problem Active 2020-02-29 M emoria ve 21:43:44 l disorder, Jorge Alberto systemic Hypertensi arterial ve (disorder) disorder, systemic arterial (disorder) Active Problem 02/29/2020 [facility], DOMONIQUE Azul,[facility] Leticia,[facility] Hypothyroi Problem Active 2020-02-29 M emoria dism 21:43:44 l (disorder) Berto n Hypothyroi dism (disorder) Active Problem 02/29/2020 [facility], DOMONIQUE Azul,[facility] Leticia,[facility] Itching Problem Active 2018-12-01 Kalia aida (finding) 21:28:18 l Itching [employer] (finding) Active Problem 12/01/2018 [facility] Intracrani Problem Active 2018-12-01 M emoria al 21:28:18 l meningioma Berto n (disorder) Intracrani al meningioma (disorder) Active Problem 12/01/2018 [facility] Pain Problem Active 2018-12-01 Memor ia (finding) 21:28:18 l Pain [employer] (finding) Active Problem 12/01/2018 [facility], DOMONIQUE Kelly,[facility] Visual Problem Active 2018-12-01 Memor ia disturbanc 21:28:18 l e Visual [employer] (disorder) disturbanc e (disorder) Active Problem 12/01/2018 [facility] DOMONIQUE Kelly,[facility] Body mass Problem Active 2020-02-29 Me moria index 40+ 21:43:44 l - severely Body Berto n obese mass index (finding) 40+ - severely obese (finding) Active Problem 02/29/2020 [facility] OPID [employer] Myasthenia Problem Active 2020-02-29 M emoria gravis 21:43:44 l (disorder) Berto n Myasthenia gravis (disorder) Active Problem 02/29/2020 [facility] OPID Jorge Alberto Recurrent Problem Active 2020-02-29 Me moria falls 21:43:44 l (finding) [employer] Recurrent falls (finding) Active Problem 02/29/2020 [facility] OPID [employer] Type II Problem Active 2020-02-29 Kalia aida diabetes 21:43:44 l mellitus Type II Gerda nn uncontroll diabetes ed mellitus (finding) uncontroll ed (finding) Active Problem 02/29/2020 [facility] OPID [employer] Altered Problem Active 2011-03-27 Kalia aida mental 08:54:23 l status Altered Jorge Alberto mental status Active Problem 03/27/2011 [facility] Craniotomy Problem Active 2011-03-27 M emoria 08:54:23 l Jorge Alberto Craniotomy Active Problem 03/27/2011 [facility] HTN - Problem Active 2011-03-27 Memor ia Hypertensi 08:54:23 l on HTN - Jorge Alberto Hypertensi on Active Problem 1 [facility] Meningioma Problem Active 2011-03-27 M emoria of brain 08:54:23 l Jorge Alberto Meningioma of brain Active Problem 03/27/2011 [facility] Visual Problem Active 2011-03-27 Memor ia disturbanc 08:54:23 l e Visual [employer] disturbanc e Active Problem 03/27/2011 [facility] Itching Problem Active 2011-03-27 Kalia aida 08:54:23 l Itching Jorge Alberto Active Problem 03/27/2011 [facility] Pain Problem Active 2011-03-27 Memor ia 08:54:23 l Pain [employer] Active Problem 03/27/2011 [facility] BRAIN Diagnosis Active 2011-02-20 Mem oria NEOPLASM 14:11:00 l NOS BRAIN Jorge Alberto NEOPLASM NOS Active Rehabilita tion ADMINISTRT Diagnosis Active 2011-02-04 Memoria VE ENCOUNT 11:31:00 l NOS Jorge Alberto ADMINISTRT VE ENCOUNT NOS Active [facility] COMMUNICAT Diagnosis Active 2011-03-05 Memoria HYDROCEPHA 21:52:00 l TANJA [employer] COMMUNICAT HYDROCEPHA TANJA Active [facility] SUBDURAL Diagnosis Active 2011-03-20 M emoria HEMORRHAGE 21:57:00 l SUBDURAL Berto n HEMORRHAGE Active Rehabilita tion DEHYDRATIO Diagnosis Active 2011-03-27 Memoria N 13:56:00 l [employer] DEHYDRATIO N Active [facility] MYASTHENIA Diagnosis Active 2018-09-30 Memoria GRAVIS 22:26:00 l WITHOUT [employer] (ACUTE) MYASTHENIA EXACER GRAVIS WITHOUT (ACUTE) EXACER Active [facility] ILLNESS, Diagnosis Active 2018-09-08 M emoria UNSPECIFIE 11:41:00 l D ILLNESS, Berto n UNSPECIFIE D Active [facility] OCULAR Diagnosis Active 2018-09-22 Mem oria PAIN, 15:15:00 l RIGHT EYE OCULAR Gerda nn PAIN, RIGHT EYE Active [facility] UNQUALIFIE Diagnosis Active 2018-09-22 Memoria D VISUAL 15:15:00 l LOSS, LEFT Berto n EYE, ALEXIA UNQUALIFIE D VISUAL LOSS, LEFT EYE, ALEXIA Active [facility] UNSP DISP Diagnosis Active 2019-12-14 Memoria FX OF 09:22:00 l [facility] UNSP [employer] CERVICAL DISP FX OF VERTEBR [facility] CERVICAL VERTEBR Active [facility] Allergies, Adverse Reactions, Alerts Allergy Allergy Status Severity Reaction(s) Onset Inactive Treating Comm ents Source Name Type Date Date Clinician Gabapent Drug Active Rash [facility] Allergy 02-11 [facility] - 00:00: Medical 00 [place] Other Propensi Active Other (See IVIG [facility] ty to Comments) 02-10 [facility] - adverse 00:00: large Medical reaction 00 blisters Center s b/l legs Penicill Drug Active Rash [facility] Allergy 02-13 [facility] - [facility]: Medical 00 [place] Salicyla Drug Active Rash [facility]na Allergy 02-10 [facility] - [facility]: Medical 00 [place] Ciproflo Drug Active Anaphylaxis [facility] xacin [...] ycin<sup 1-14 l >2</sup> >2</sup> 06:00: Berto rFeitas Adhesive Adhesive Active 2010-06 Memori a Tape<sup Tape<sup 1-14 l >4</sup> >4</sup> 06:00: Berto Freitas aspirin< aspirin< Active 2010-06 Memori a sup>4</s sup>4</s 1-14 l up> up> 06:00: Jorge Alberto Freitas Adhesive Adhesive Active 2010-06 Memori a Tape<sup Tape<sup 1-14 l >6</sup> >6</sup> 06:00: Berto Freitas Aspirin Allergy Active [facility] TABS to drug [facility]y of (finding [place] ) [facility] Cefepime Allergy Active [facility] HCl SOLN to drug ity of (finding [place] ) Physici ans Erythrom Allergy Active [facility] ycin to drug ity of Derivati (finding [place] ves ) Physici ans Penicill Allergy Active [facility] ins to drug ity of (finding [place] ) Physici ans PHENobar Allergy Active [facility] bital to drug ity of TABS (finding [place] ) Physici ans Cortizon Allergy Active Univers e-10 to drug ity of (finding [place] ) Physici ans ciproflo ciproflo Active Memori a xacin xacin l [employer] heparin heparin Active Severe Memoria l Jorge Alberto phenobar phenobar Active Memori a bital bital l Jorge Alberto cefepime cefepime Active Memori a l Jorge Alberto Cortizon Cortizon Active Memori a e-10 e-10 l Jorge Alberto aspirin aspirin Active Memoria l Jorge Alberto erythrom erythrom Active Memori a ycin ycin l Jorge Alberto penicill penicill Active Memori a ins ins l [employer] Silk Silk Active Memoria Tape Tape l Jorge Alberto gabapent gabapent Active Memori a in<sup>3 in<sup>3 l </sup> </sup> Jorge Alberto immune immune Active Memoria globulin globulin l intraven intraven Berto n ous<sup> ous<sup> 5</sup> 5</sup> Social History Social Habit Start Date Stop Date Quantity Comments Source Sex Assigned At [facility] Social History 2018-08-17 2018-08-17 [facility] 08:45:08 08:45:08 Tobacco use and 2017-02-25 2017-02-25 Never used [facility] - exposure 00:00:00 00:00:00 [facility] Alcohol intake 2017-02-25 2017-02-25 Current [facility] es - 00:00:00 00:00:00 non-drinker of Medical Ce nter alcohol (finding) Smoking Status Start Date Stop Date Source Never smoker [facility] Medications Ordered Filled Start Stop Current [...] 02-26 mL, PO, l oral 15:50: BID-Before [employer] suspension 00 Meals, # 600 mL, 0 Refill(s) pregabalin 2020-0 Yes 25 mg = 1 Me moria 25 mg oral 02-26 cap, PO, l capsule 15:45: Q8H-01, 0 Gerda nn 00 Refill(s) Sulfamethox 2020-0 No 1 tab, PO, Memoria azole 800 9- [id number], X l MG / 15:45: 1 day, # 2 [employer] Trimethopri 00 tab, 0 m 160 MG Refill(s) Oral Tablet [Bactrim] predniSONE 2020-0 Yes 20 mg = 1 Me moria 20 mg oral 02-26 tab, PO, l tablet 15:45: Daily, X [employer] 00 21 day, # 21 tab, 0 Refill(s) Insulin 2020-0 Yes 20 unit, Memori a Glargine 02-26 SUB-Q, l 100 UNT/ML 15:45: BID, # 10 He rmann Injectable 00 mL, 0 Solution Refill(s) lisinopril 2020- Yes 5 mg = 1 Mem oria 5 mg oral 02-26 tab, GT, l tablet 15:17: Daily, 0 Jorge Alberto 00 Refill(s) Sulfamethox 2019-0 No 1 tab, PO, Memoria azole 800 02-26 [id number], 0 l MG / 15:17: Refill(s) Jorge [...] PO, l oral tablet 15:17: Bedtime, 0 [employer] 00 Refill(s) predniSONE No 20 mg = 1 Me moria 20 mg oral 02-26 tab, PO, l tablet 15:17: Daily, 0 [employer] 00 Refill(s) Calcium 2019- No 500 mL, [...] Notes: Memoria 02-25 porcine l 02:00: heparin [employer] 00 heparin 2019-0 Yes Route: Memoria 02-24 [...] 14:30: - Sink; E Jorge Alberto - [facility] Trash Bin albumin 2019-0 No [...] Dosing Oral Tablet Weight [Bactrim] 84.545, kg, [id number], Start date: 02/22/20 20:00:00 CDT, Stop date: [...] 02-21 Route: IM, l 01:57: Drug form: [employer] PDR/INJ, PRN, Dosing Weight 84.545, kg, PRN Blood Glucose Results, Start date: 02/21/20 20:57:00 CDT, Duration: 30 day, Stop date: 10/22/20 20:56:00 CDT, 0 Insulin No Notes: Memoria Lispro 02-21 (Same as: l 01:57: Humalog) Ojrge Alberto 00 Roll in palms of hands [...] human 5% 02-20 LOT#: l intravenous 16:23: [employer] solution 00 ___Mfg:___ ___ (Same as: Albuminar) "blood product derivative " WASTE: F/P - Red; E -Red MEDICATION WASTE Product Size: 25 gm Product Wasted: _0__ gm Calcium No Notes: Memoria Gluconate 02-20 WASTE: F/P l 12:00: - Sink; E [employer] 00 - Municipal Trash Bin albumin No Notes: Soyoria human 5% 02-20 LOT#: l intravenous 11:45: Jorge Alberto solution 00 ___Mfg:___ ___ (Same as: Albuminar) "blood product derivative " WASTE: F/P - Red; E -Red MEDICATION WASTE Product Size: 25 gm Product Wasted: ___ gm Lyrica No Notes: Memoria 02-19 (Same as: l 15:07: Lyrica) [employer] Os-Roger 500 No Notes: Memor ia 02-19 500mg l 15:00: elemental [employer] 00 calcium = 1250mg calcium carbonate. Contains [...] mine 02-18 Route: l 17:00: IVP, ONCE, [employer] Dosing Weight 84.545, kg, Start date: 02/19/20 [...] a detemir 02-17 Route: l 21:06: SUB-Q, [employer] BID, Dosing Weight 84.545, kg, Start date: [...] . WASTE: F/P - Black; E - ciValue Trash Bin Stable for 31 days at [...] s with feeding tube less than 14 Uzbek (Dobhoff, J-tube etc) and pediatric and patients. Tylenol No Notes: Do Memor ia 02-16 not exceed l 22:08: 4 gm/day. Jorge Alberto 00 (Same as: Tylenol) Calcium No Notes: Memoria Gluconate 02-16 WASTE: F/P l 22:00: - Sink; E [employer] - Municipal Trash Bin albumin No Notes: Memoria human 5% 02-16 LOT#: l intravenous 21:47: [employer] solution 00 ___Mfg:___ ___ (Same as: Albuminar) [...] Memoria -18 (Same as: l 21:00: Mestinon) [employer] 00 pyridostigm 2019-0 No Notes: Kalia aida ine 02-16 (Same as: l 21:00: Mestinon) Jorge Alberto 00 30 mg = 1/2 x 60 mg TAB clonazePAM No Notes: Memor ia 02-16 (Same as l 18:45: KlonoPIN Jorge Alberto ODT) Hazardous Drug Group 3:Reproduc tive risk Hazardous Drug -- Refer to safe handling procedure PPE Matrix Clonazepam No Notes: Memor ia 02-16 (Same as l 17:27: KlonoPIN Jorge Alberto 00 ODT) Hazardous Drug [...] 60 mg = 1 M emoria ine [place] 02-15 tab, PO, l 60 MG Oral [...] / 14:00: Senokot-S) sennosides, 00 Equiv. to LONG TERM 8.6 MG [place] Oral Tablet e. Pyridostigm No Notes: Kalia aida ine 02-15 (Same as: l 14:00: Mestinon) Furosemide No Notes: Memor ia 20 MG Oral 02-15 (Same as: l Tablet 14:00: Lasix) May cause GI upset. Give with food or milk. Lisinopril No Notes: Memor ia 02-15 (Same as: l 14:00: Prinivil, [employer] 00 Zestril) Sertraline No Notes: Memor ia 02-15 (Same as: l 14:00: Zoloft) thiamine No 200 mg = 2 Mem oria 100 mg oral 02-15 tab, PO, l tablet 13:57: Daily 00 3 ML Yes See Memoria Insulin, 02-15 Instructio l Aspart, 13:55: ns, 10 [employer] Human 100 00 unit SUB-Q UNT/ML Pen TID-Before Injector Meals and [NovoLog] at bedtime, 0 Refill(s) 3 ML No 30 unit, Memoria insulin 02-15 SUB-Q, l detemir 100 13:55: BID, 0 Herm mercy UNT/ML 00 Refill(s) Prefilled Syringe [Levemir] Thyroxine No Notes: Memori a 02-15 Take 1 l 11:30: hour Jorge Alebrto 00 before or 2 hours after meal; [...] MG 16:38: mouth Medical capsule 36 daily. [place] atorvastati 2020-0 Yes 40mg QD Take 40 [...] MG tablet 00:00: nightly. Medi roger 00 [place] rosuvastati 2020-0 Yes 20mg QD Take 20 [...] Alberto 00 30 tab, 0 Refill(s), Pharmacy: [facility] #[id number], 149.86, cm, 12/06/19 15:12:00 CDT, [...] 7-20 mL, PO, l oral 20:22: BID-Before [employer] suspension 00 Meals, # 600 mL, 0 [...] - Route: IM, l 20:42: Drug form: Jorge Alberto PDR/INJ, PRN, Dosing Weight 90, kg, PRN Blood Glucose Results, Start date: 12/16/19 15:42:00 CDT, Duration: 30 day, Stop date: 01/15/20 15:41:00 CDT, 0 Insulin No Notes: Memoria Lispro 7-17 (Same as: l 20:42: Humalog) Jorge Alberto 00 Roll in palms [...] Chloride 7-16 (Same as: l 01:00: KCL) [employer] 00 Infuse over 2 hours. Morphine No [...] as: l / 21:35: Duoneb) Ipratropium 00 [place] 0.167 MG/ML Inhalant Solution Furosemide No Notes: [...] a 7-12 (Same as: l 17:40: Ativan) Jorge Alberto 00 Ofirmev No Notes: Memoria 7-12 Infuse l 17:00: over 15 minutes Do not exceed 4gm/day of acetaminop hen MEDICATION WASTE Product Size: 1000 mg Product Wasted: ___ mg Lidocaine No Notes: Memori a Hydrochlori -12 (Same as: l de 0.02 14:07: Xylocaine Gerda nn MG/MG 00 Jelly, Topical Gel Glydo) Morphine No Notes: Memoria 7-12 (Same l 14:06: as:MORPhin Jorge Alberto 00 e Sulfate) Blistex No Notes: Memoria [...] Rate: 75 l NaCl IV 00:56: ml/hr, [employer] 1,000 mL 00 Infuse over: 13.3 hr, [...] e 7- IV push l 17:40: reconstitu [employer] 00 te with 10 ml 0.9% sodium chloride and push over 2 minutes. (Same as: Protonix) Acetaminoph No Notes: Do M emoria en 12-08 not exceed l 05:00: 4 gm/day. [employer] 00 (Same as: Tylenol) Amlodipine No Notes: Memor ia 12-07 (Same as: l 14:00: Norvasc) Ramipril No Notes: Memoria 12-07 (Same l 14:00: as:Altace) Dextrose 2019-0 No 12.5 gm, Memor ia 50% in 12-06 25 mL, l Water IV 17:21: Route: [employer] 00 IVP, Drug Form: INJ, Dosing Weight [...] 12-05 not exceed l 17:17: 4 gm/day. [employer] 00 (Same as: Tylenol) Dextrose No 12.5 gm, Memor ia 50% Syringe 12-05 25 mL, l (D50W) 17:15: Route: Jorge Alberto IVP, Drug Form: INJ, Dosing Weight 90, kg, PRN, PRN Blood Glucose Results, Start date: 12/06/19 12:15:00 CDT, Duration: 30 day, Stop date: 01/05/20 12:14:00 CDT, 0 Glucagon No 1 mg, Memoria 12-05 Route: IM, l 17:15: Drug form: [employer] 00 PDR/INJ, PRN, Dosing Weight 90, kg, [...] 12-05 (Same as: l Tablet 17:10: Pepcid) [employer] [Pepcid] 00 chlorhexidi No Notes: Kalia aida [...] one 12-05 (Same as: l 05:00: Solu-BERKLEY [employer] 00 F) Neurontin 2020-0 No Notes: Memori [...] oria 12-05 to exceed l 01:45: 400mg/day. [employer] (Same As: Ultram) Fentanyl 2019-0 No Notes: [...] being intubated (unless the nurse is a REGULATORY SUBMISSIONS SPECIALIST). Same as: Diprivan norepinephr 0 No Route: IV, Memoria ine (ANES) 12-04 Drug form: l 10 20:20: INJ, Start Jorge Alberto microgram date: 12/05/19 15:20:00 CDT, Stop date: 12/05/19 16:20:00 CDT norepinephr 2019-0 No Route: IV, Memoria ine (ANES) 12-04 Drug form: l 20:10: INJ, ONCE, [employer] 00 Stop date: 12/05/19 15:10:00 CDT Insulin [...] 12-04 Drug form: l 15:25: INJ, ONCE, [employer] Stop date: 12/05/19 10:25:00 CDT propofol 2020-0 No Route: IV, Mem oria (ANES) 12-04 Drug form: l 14:44: INJ, ONCE, Jorge Alberto 00 Stop date: 12/05/19 9:44:00 CDT succinylcho 2019-0 No Route: IV, Memoria line (ANES) 12-04 Drug form: l 14:44: INJ, ONCE, [employer] Stop date: 12/05/19 9:44:00 CDT fentaNYL 2020-0 No Route: IV, Mem oria (ANES) 12-04 Drug form: l 14:44: INJ, ONCE, Jorge Alberto Stop date: 12/05/19 9:44:00 CDT dexamethaso 2019-0 No Route: IV, Memoria ne (ANES) 12-04 Drug form: l 14:39: INJ, ONCE, Jorge Alberto 00 Stop date: 12/05/19 9:39:00 CDT ePHEDrine No Route: IV, Me hurtado (ANES) 12-04 Drug form: l 13:58: INJ, ONCE, [employer] Stop date: 12/05/19 8:58:00 CDT Sodium 2019-0 No Route: IV, Memor ia Chloride 12-04 Total l 0.9% IV 13:55: Volume: [employer] (ANES) 500 00 500, Start mL date: [...] 12-04 (Same as: l / 13:00: Duoneb) Jorge Alberto Ipratropium 00 [place] 0.167 MG/ML Inhalant Solution Humalog 2019-0 No [...] Memoria 7- (Same as: l 23:26: Humalog) Jorge Alberto Roll in palms of hands gently; Do not shake vigorously . WASTE: F/P - Black; E - Municipal Trash Bin Stable for 28 days at room temperatur e. Expires in days from ____Date Insulin 2020-0 No Notes: Memoria Lispro - (Same as: l 05:57: Humalog) [employer] 00 Roll in palms of hands gently; [...] Memori a 7- Route: l 02:00: SUB-Q, [employer] 00 Bedtime, Dosing Weight 90, kg, Start date: 12/01/19 21:00:00 CDT, Duration: 30 day, Stop date: 12/30/19 21:00:00 CDT Dextrose 2020-0 No 12.5 gm, Memor ia 50% Syringe 11-30 25 mL, l (D50W) 18:30: Route: [employer] IVP, Drug Form: INJ, Dosing Weight 90, kg, PRN, PRN Blood Glucose Results, Start date: 12/01/19 13:30:00 CDT, Duration: 30 day, Stop date: 12/31/19 13:29:00 CDT, 0 Glucagon 2020-0 No 1 mg, Memoria 11-30 Route: IM, l 18:30: Drug form: [employer] 00 PDR/INJ, PRN, Dosing Weight 90, kg, [...] 11-29 25 mL, l (D50W) 02:47: Route: Jorge Alberto 00 IVP, Drug Form: [...] Lispro 7-01 (Same as: l 02:47: Humalog) [employer] 00 Roll in palms of hands gently; [...] as: l de 10 MG/ML 21:00: Xylocaine) Jorge Alberto Injectable 00 Solution Saline No Notes: Memoria Flush 0.9% 6-30 (Same as: l 21:00: BD [employer] 00 Posiflush) Saline No Notes: Memoria Flush 0.9% 6-30 (Same as: l 20:21: BD [employer] 00 Posiflush) Dextrose 5% No 1,000 mL, M emoria with 0.45% 6-30 Rate: 40 l NaCl IV 11:28: ml/hr, [employer] 1,000 mL 00 Infuse over: 25 hr, Route: IV, Dosing Weight 90 kg, Total Volume: 1,000, Start date: 11/29/19 6:28:00 CDT, Duration: 30 day, Stop date: 12/29/19 6:27:00 CDT, 1.98, m2, 0 Melatonin 3 No Notes: Kalia aida MG Extended 6-27 (Same as: l Release 05:11: Melatonin) Herm mercy Tablet 00 sennosides, 0 No Notes: Kalia aida LONG TERM 6-27 (Same as: l 02:00: Senokot) [employer] 00 Insulin 2019-0 No 20 unit, Memori a Glargine -27 0.2 mL, l 100 UNT/ML 02:00: Route: Gerda nn Injectable 00 SUB-Q, Solution Drug form: [Lantus] SOLN, Q12H, Dosing Weight 90, kg, Start date: 11/25/19 21:00:00 CDT, Duration: 30 day, Stop date: 12/25/19 9:00:00 CDT, 0 Ramipril 2020-0 No Notes: Memoria 11-24 (Same l 14:00: as:Altace) [employer] 00 Oxycodone 2019-0 No Notes: Memori a [...] BID, 0 Jorge Alberto 00 Refill(s) sertraline 2020-0 Yes 25 mg = 1 Me moria 25 mg oral 6-25 tab, PO, l tablet 17:08: Daily, 0 Jorge Alberto 00 Refill(s) predniSONE 2020-0 Yes 20 mg [...] 6-25 PO, BID, 0 l 17:08: Refill(s) Jorge Alberto 00 3 ML 2020-0 No 10 unit, [...] 6-24 (Same as: l 23:05: Humulin R) Jorge Alberto 00 Roll in palms of hands gently; Do not shake vigorously . WASTE: F/P - Black; E - Municipal Trash Bin Stable for 31 days at room temperatur e Expires in days from ____Date Dextrose 2019-0 No 12.5 gm, Memor ia 50% Syringe 24 25 mL, l (D50W) 22:47: Route: [employer] IVP, Drug Form: INJ, Dosing Weight 90, kg, PRN, PRN Blood Glucose Results, Start date: 11/23/19 17:47:00 CDT, Duration: 30 day, Stop date: 12/23/19 17:46:00 CDT, 0 Glucagon 2019-0 No 1 mg, Memoria 6-24 Route: IM, l 22:47: Drug form: [employer] PDR/INJ, PRN, Dosing Weight 90, kg, PRN [...] Not Crush) sennosides, No Notes: Kalia aida LONG TERM 6-24 (Same as: l 12:53: Senokot) Albuterol No Notes: Memori a 0.833 MG/ML 24 (Same as: l / 11:46: Duoneb) Ipratropium 00 [place] 0.167 MG/ML Inhalant Solution Synthroid No Notes: Memori a 6-24 Take 1 l 11:30: hour Jorge Alberto 00 before or 2 hours after meal; Enteral feeds may interefere with the absorption of this medication . (Same as:Synthro id) remove No Notes: Memoria patch 6-24 Remove l 10:00: patch 12 [employer] 00 hours after applicatio n each day. [...] 6-23 Route: IM, l 21:16: Drug form: [employer] 00 PDR/INJ, PRN, Dosing Weight 100, kg, [...] Memoria 6-23 Route: l 20:28: IVP, Drug [employer] 00 form: INJ, ONCE, Dosing Weight 100, [...] Memoria 11-21 Route: l 12:08: IVP, Drug [employer] 00 Form: SOLN, Dosing Weight 100, kg, ONCALL, STAT, Start date: 11/22/19 7:08:00 CDT, Duration: 1 doses or times, Dose = 2.2ml/kg, Max dose = 100ml -- "To be infused by Radiology Staff ONLY" heparin 2018-06 Yes Notes: Memoria flush 0-04 (Same as: l 23:00: Heparin [employer] 00 Lock Flush) heparin 2018-06 No 100 [...] Ergocalcife 2018-06 Yes 50,000 Kalia aida rol 56126 0-04 IntlUnit = l UNT Oral 21:09: [...] oral 0-04 tab, PO, l tablet 21:09: [id number], X Gerda nn 00 7 day, # 14 tab, 0 Refill(s) meclizine 2018-06 Yes 12.5 mg = Mem oria 12.5 mg 0-04 1 tab, PO, l oral tablet 21:09: TID, PRN He rmann 00 Dizziness, X 7 day, # 100 tab, 0 Refill(s) melatonin 3 2018-06 Yes 6 mg = 2 Me moria mg oral 0-04 tab, PO, l tablet 21:09: Bedtime, [employer] 00 PRN Sleep, X 30 day, # [...] 2 tab, PO, Memoria azole 800 0-04 [id number], X l MG / 21:09: 7 day, # [employer] Trimethopri 00 28 tab, 0 m 160 [...] oral 0-04 tab, PO, l tablet 18:44: [id number], 0 Gerda nn 00 Refill(s) meclizine 2018-06 [...] 2 tab, PO, Memoria azole 800 0-04 [id number], 0 l MG / 18:44: Refill(s) [employer] Trimethopri 00 m 160 MG Oral Tablet [Bactrim] Acetaminoph 2018-06 No 650 mg = 2 Memoria en 325 MG 0-04 tab, PO, l Oral Tablet 18:44: Q6H, PRN He rmann 00 Pain Score 7-10, 0 Refill(s) Ergocalcife 2018-06 No 50,000 Kalia aida rol 39005 0-04 IntlUnit = l UNT Oral 18:44: 1 cap, PO, Her restrepo Capsule 00 Q7D, 0 Refill(s) Famotidine 2018-06 No 20 mg = 1 Me moria 20 MG Oral 0-04 tab, PO, l Tablet 18:44: Daily, 0 [employer] 00 Refill(s) Hydroxyzine 2018-06 No 25 mg = 1 M emoria Hydrochlori 0-04 cap, PO, l de 25 MG 18:44: QID, PRN Gerda nn Oral 00 Anxiety, 0 Capsule Refill(s) predniSONE 2018-06 No 25 mg = 5 Me moria 5 mg oral 0-04 tab, PO, l tablet 18:44: Daily, 0 [employer] 00 Refill(s) Flagyl 2018-06 No 500 mg, [...] oria 02-26 tab, l 22:00: Route: PO, [employer] 00 Drug form: TAB, [id number], Dosing Weight 90.909, kg, Start date: 02/26/19 17:00:00 CDT, Duration: 10 day, Stop date: 03/08/19 8:00:00 CDT, ABX Indication : Skin/Soft Tissue Infection, 0 Sulfamethox No 2 tab, Kalia aida azole 800 02-26 Route: PO, l MG / 22:00: Drug Form: Jorge Alberto Trimethopri 00 TAB, m 160 MG Dosing Oral Tablet Weight [Bactrim] 90.909, kg, [id number], Start date: 02/26/19 17:00:00 CDT, Duration: 10 [...] Kalia aida 02-26 Route: l 17:36: IVP, [employer] 00 Q20Min, Dosing Weight 90.909, kg, PRN Elevated BP, Start date: 02/26/19 12:36:00 CDT, Duration: 2 doses or times, Stop date: Limited # of times Labetalol 2019-0 No 10 mg, Memori a 02-26 Route: l 17:36: IVP, [employer] 00 Q5Min, Dosing Weight 90.909, kg, PRN [...] aida 02-26 Route: l 17:36: IVP, PRN, [employer] Dosing Weight 90.909, kg, PRN Benzodiaze pine Reversal, Initial dose, Start date: 02/26/19 12:36:00 CDT, Duration: 30 day, Stop date: 03/28/19 12:35:00 CDT Naloxone 2019-0 No 0.4 mg, Memori a 02-26 Route: l 17:36: IVP, Jorge Alberto 00 Q2MIN, Dosing Weight 90.909, kg, PRN Narcotic Reversal, Start date: 02/26/19 12:36:00 CDT, Duration: 8 doses or times, Stop date: Limited # of times Ondansetron 2019-0 No 4 mg, Memor ia 02-26 Route: l 17:36: IVP, ONCE, [employer] Dosing Weight 90.909, kg, PRN Nausea & [...] Memori a 02-23 Route: l 04:53: IVP, [employer] 00 Q5Min, Dosing Weight 90.909, kg, PRN Elevated BP, Start date: 02/22/19 23:53:00 CDT, Duration: 5 doses or times, Stop date: Limited # of times Acetaminoph 2019-0 No 1,000 mg, M emoria en 02-23 Route: PO, l 04:53: Drug form: [employer] 00 TAB, ONCE, Dosing Weight 90.909, kg, [...] aida 02-23 Route: l 04:53: IVP, PRN, [employer] 00 Dosing Weight 90.909, kg, PRN Benzodiaze [...] Memoria regular 02-23 Route: l 04:53: SUB-Q, [employer] Sliding Scale, Dosing Weight 90.909, kg, PRN [...] ia 02-22 Take with l 14:00: food. [employer] 00 Saline 0 No 10 mL, Memoria [...] l de 20 MG/ML 18:20: TOP, ONCE, [employer] Topical Start Ryan date: 02/21/19 13:20:00 CDT, Stop date: 02/21/19 13:20:00 CDT Lidocaine No Notes: Memori a Hydrochlori - (Same as: l de 10 MG/ML 17:00: Xylocaine) [employer] Injectable Solution Saline No 10 mL, Memoria Flush 0.9% 9- Route: l 16:54: IVP, Drug [employer] 00 Form: INJ, Dosing Weight 90.909, kg, PRN, PRN Line Flush, Start date: 02/21/19 11:54:00 CDT, Duration: 30 day, Stop date: 03/23/19 11:53:00 CDT Saline No Notes: Memoria Flush 0.9% 9-23 (Same as: l 05:00: BD [employer] 00 Posiflush) Lidocaine No Notes: Memori a Hydrochlori 9-22 Preservati l de 10 MG/ML 22:00: ve free. He rmann Injectable 00 (Same as: Solution Xylocaine MPF) Saline No Notes: Memoria Flush 0.9% 9-22 (Same as: l 21:25: BD Jorge Alberto 00 Posiflush) insulin, No Notes: Memoria isophane [...] detemir 02-18 Non-Formul l 14:00: jordi Drug [employer] 00 (Same as Levemir) "Single Patient Use [...] s with feeding tube less than 14 [place] (Dobhoff, J-tube etc) and pediatric and patients. [...] Memoria 02-14 Non-Formul l 14:00: jordi Drug [employer] 00 (Same as Levemir) "Single Patient Use [...] 02-14 Route: IM, l 01:33: Drug form: Jorge [...] Memoria 9-16 Route: IM, l 01:32: PRN, [employer] 00 Dosing Weight 90.909, kg, PRN Blood Glucose Results, Start date: 02/13/19 20:32:00 CDT, Duration: 30 day, Stop date: 03/15/19 20:31:00 CDT Insulin 2019-0 No 2 unit, Memoria regular 9-16 Route: l 01:32: SUB-Q, Jorge Alberto 00 TID-Before Meals, Dosing Weight 90.909, kg, [...] 0.9% 9-14 (Same as: l 21:00: BD [employer] 00 Posiflush) Ativan No Notes: Memoria 9-14 (Same as: l 17:02: Ativan) Jorge Alberto 00 Lidocaine No 5 mL, Memoria Hydrochlori 14 Route: l de 10 MG/ML 17:00: INTRADERM, [employer] Injectable 00 Dosing Solution Weight 90.909, kg, ONCALL, For PICC line insertion. , Start date: 02/12/19 12:00:00 CDT, Duration: 30 day, Stop date: 03/14/19 11:59:00 CDT Saline No Notes: Memoria Flush 0.9% 9-14 (Same as: l 16:23: BD [employer] 00 Posiflush) Morphine No Notes: Memoria 9-14 (Same l 16:12: as:MORPhin Jorge Alberto 00 e Sulfate) Isolyte S No Notes: [...] 100 Memoria 9-11 ml/min, l 13:00: Time [employer] 00 Critical Medication , Start date: 02/09/19 [...] Syringe 02-08 25 mL, l 06:33: Route: Jorge Alberto 00 IVP, Drug Form: INJ, Dosing Weight 90.909, kg, PRN, PRN Blood Glucose Results, Start date: 02/08/19 1:33:00 CDT, Duration: 30 day, Stop date: 03/10/19 1:32:00 CDT, 0 Glucagon No 1 mg, Memoria - Route: IM, l 06:33: Drug form: [employer] 00 PDR/INJ, PRN, Dosing Weight 90.909, kg, PRN Blood Glucose Results, Start date: 02/08/19 1:33:00 CDT, Duration: 30 day, Stop date: 03/10/19 1:32:00 CDT, 0 Insulin No Notes: Memoria Lispro -10 (Same as: l 06:33: Humalog) [employer] 00 Roll in palms of hands gently; Do not shake vigorously . WASTE: F/P - Black; E - Municipal Trash Bin Stable for 28 days at room temperatur e. Expires in days from ____Date Humalog 2018-0 No Notes: Memoria 9-10 (Same as: l 03:51: Humalog) [employer] 00 Roll in palms of hands gently; [...] Memoria patch - Route: l 02:00: TOP, [employer] 00 Bedtime, Drug form: ERFILM, Start date: 02/07/19 21:00:00 CDT, Duration: 30 day, Stop date: 03/08/19 21:00:00 CDT, 0 Humalog 2018-0 No Notes: Memoria 9-10 (Same as: l 01:20: Humalog) [employer] 00 Roll in palms of hands gently; [...] a regular 02-07 Route: l 22:12: SUB-Q, [employer] 00 ONCE, Dosing Weight 90.909, kg, Start date: 02/07/19 17:12:00 CDT, Stop date: 02/07/19 17:12:00 CDT Lidocaine No 1 patch, Kalia aida 0.05 MG/MG 02-07 Route: l Transdermal 19:00: TOP, Berto n Patch 00 Daily, Drug form: FILM, Start date: 02/07/19 14:00:00 CDT, Duration: 30 day, Stop date: 03/09/19 9:00:00 CDT, 0 Ergocalcife No 50,000 Kalia aida rol [id number] 02-07 IntlUnit, l UNT Oral 18:16: 1 cap, Jorge Alberto Capsule 00 Route: PO, Drug form: CAP, Q7D, Dosing Weight 90.909, kg, Start date: 02/07/19 13:16:00 CDT, Duration: 30 day, Stop date: 04/04/19 9:00:00 DIRECTOR DIETETICS DEPARTMENT, 0 Ativan 0 No Notes: Memoria 02-07 [...] water 02-06 Route: l 16:17: MISC, Drug [employer] Form: INJ, BID, PRN, Start date: 02/06/19 [...] 02-06 (Same as: l Tablet 14:00: Lasix) [employer] [Lasix] 00 May cause GI upset. Give [...] . WASTE: F/P - Black; E - ciValue Trash Bin Stable for 31 days at [...] 8-12 tab, PO, l Tablet 12:01: BID Jorge Alberto [Lasix] 00 Diuretic, 0 Refill(s) Furosemide No Notes: Memor ia 40 MG Oral 812 (Same as: l Tablet 11:00: Lasix) [employer] [Lasix] 00 May cause GI upset. Give with food or milk. Furosemide No Notes: Memor ia 8-10 (Same as: l 11:00: Lasix) [employer] MEDICATION WASTE Product Size: 40 mg Product Wasted: ___ mg Sodium No Notes: SEE Memor ia Chloride 3% 01-07 RT l inhalation 01:37: DOCUMENTAT H ermann solution 00 ION (Same as: Hypertonic Saline 3%, Inhalation ) Furosemide No Notes: Memor ia 07 (Same as: l 16:00: Lasix) [employer] MEDICATION WASTE Product Size: 40 mg Product Wasted: ___ mg insulin Yes 36 unit, Memori a detemir 100 01-05 SUB-Q, l UNT/ML 14:58: BID, # 15 Berto n Injectable 00 mL, 3 Solution Refill(s), [Levemir] other Lasix No Notes: Memoria 06 (Same as: l 16:15: Lasix) Furosemide No Notes: Memor ia 40 MG Oral 05 (Same as: l Tablet 14:00: Lasix) [employer] [Lasix] May cause GI upset. Give with food or milk. Amlodipine No Notes: Memor ia 804 (Same as: l 22:00: Norvasc) Ramipril No Notes: Memoria 8-04 (Same l 13:00: as:Altace) ceFAZolin No Notes: Memori a 8-04 (Same as l 11:00: Ancef) Calcium No Notes: Memoria Gluconate 01-01 WASTE: F/P l 14:30: - Sink; E Jorge Alberto - [facility] Trash Bin predniSONE No 40 [...] WASTE: F/P l 15:00: - Sink; E [employer] 00 - [facility] Trash Bin albumin No [...] Notes: Soyoria 12-30 Chlorasept l 05:37: ic Ryan [employer] (Same as: Chlorasept ic, Sore Throat Ryan) WASTE: F/P - Black; E - Municipal [...] Not Crush) sennosides, No Notes: Kalia aida LONG TERM 8.6 MG 7-31 (Same as: l Oral Tablet 14:00: Senokot) [facility] No Notes: Memor ia [...] sodium, - porcine l porcine 21:00: heparin [employer] 2500 UNT/ML 00 Injectable Solution Dextrose No 12.5 gm, Memor ia 50% Syringe 12-27 25 mL, l 20:14: Route: [employer] 00 IVP, Drug Form: INJ, Dosing Weight 92, kg, PRN, PRN Blood Glucose Results, Start date: 12/27/18 15:14:00 CDT, Duration: 30 day, Stop date: 01/26/19 15:13:00 CDT, 0 Glucagon No 1 mg, Memoria 12-27 Route: IM, l 20:14: Drug form: Jorge Alberto 00 PDR/INJ, PRN, Dosing Weight 92, kg, PRN Blood Glucose Results, Start date: 12/27/18 15:14:00 CDT, Duration: 30 day, Stop date: 01/26/19 15:13:00 CDT, 0 Insulin No Notes: Memoria regular - (Same as: l 20:14: Humulin R) [employer] 00 Roll in palms of hands gently; [...] 7-29 Take 1 l tablet 14:00: hour Jorge Alberto 00 before or 2 hours after meals. (Same As: Zithromax) Lanolin No Notes: Memoria 0.157 MG/MG 12-27 (Same as: l / Menthol 05:46: Calmosepti He rmann 0.0044 00 ne) MG/MG / Petrolatum 0.24 MG/MG / Zinc Oxide 0.206 MG/MG Topical Ointment Famotidine No Notes: Memor ia 12-27 (Same as: l 03:00: Pepcid) [employer] 00 Midodrine No Notes: Memori a 12-26 (Same l 22:00: as:Proamat [employer] 00 ine) albumin No Notes: Memoria human 5% 12-26 LOT#: l intravenous 14:08: Jorge Alberto solution 00 ___ Mfg: WASTE: F/P - Red; E -Red (Same as: Albuminar) "blood product derivative " Midodrine No Notes: Memori a 12-26 (Same l 14:00: as:Proamat [employer] 00 ine) azithromyci No Notes: Kalia aida n 500 mg 12-26 Take 1 l oral tablet 14:00: hour Berto n 00 before or 2 hours after meals. (Same As: Zithromax) Calcium No 3 gm, Memoria Gluconate 12-26 Route: IV, l 14:00: Continuous [employer] , Dosing Weight 92, kg, Start date: 12/26/18 9:00:00 CDT, Duration: 30 day, Stop date: 01/25/19 8:59:00 CDT albumin No 2.25 Memoria human 5% 12-26 Liter, l intravenous 13:41: Route: IV, Jorge Alberto solution 00 Dosing Weight 92, kg, ONCE, [...] Syringe 12-26 12.5 mL, l 01:23: Route: Jorge Alberto 00 IVP, Drug Form: INJ, Dosing Weight 92, kg, PRN, PRN Abnormal Lab Result, Start date: 12/25/18 20:23:00 CDT, Duration: 30 day, Stop date: 01/24/19 20:22:00 CDT, 0 Famotidine No Notes: Memor ia 12-25 (Same as: l 22:00: Pepcid) [employer] Mestinon No Notes: Memoria 12-25 (Same as: l 21:00: Mestinon) Jorge Alberto 00 Sodium No Notes: SEE Memor ia Chloride 3% 12-25 RT l inhalation 20:00: DOCUMENTAT H ermann solution 00 ION (Same as: Hypertonic Saline 3%, Inhalation ) fondaparinu No Notes: Kalia aida x 12-25 (Same as: l 17:00: Arixtra) [employer] 00 Albuterol 1 No Notes: SEE Memoria MG/ML 12-25 RT l Inhalant 16:11: DOCUMENTAT Her restrepo Solution 00 ION (Same as: Proventil) Calcium No Notes: Memoria Gluconate 12-25 WASTE: F/P l 16:00: - Sink; E Jorge Alberto 00 - Municipal Trash Bin albumin No Notes: Memoria human 5% 12-25 LOT#: l intravenous 15:35: [employer] solution 00 ___Mfg:___ ___ (Same as: Albuminar) "blood product derivative " WASTE: F/P - Red; E -Red MEDICATION WASTE Product Size: 25 gm Product Wasted: ___ gm Prednisone No Notes: Memor ia 7- Take with l 14:00: food. [employer] 00 Thyroxine No Notes: Memori a 7-27 [...] tab, PO, l Tablet 04:55: Daily, 0 [employer] 00 Refill(s) rosuvastati No 20 mg = 1 M emoria n 20 mg - tab, PO, l oral tablet 04:55: Bedtime, 0 [employer] 00 Refill(s) ramipril 10 Yes 10 mg = 1 M emoria mg oral 12-25 cap, PO, l capsule 04:55: Daily, 0 Berto n 00 Refill(s) Amlodipine Yes 10 mg, PO, M emoria 12-25 Daily, 0 l 04:55: Refill(s) [employer] 00 Furosemide No 80 mg, PO, M [...] tab, PO, l tablet 04:55: Daily, 0 [employer] 00 Refill(s) Thyroxine Yes 88 Memoria 7- microgram, l 04:55: PO, Daily, [employer] 00 0 Refill(s) Alendronic Yes 70 mg [...] 02:00: Colace) sennosides, No Notes: Kalia aida LONG TERM 8.6 MG 7-27 (Same as: l Oral Tablet 02:00: Senokot) [facility] Ceftriaxone No Notes: Memoria 7-27 MEDICATION l 02:00: WASTE Product Size: 2000 mg Product Wasted: ___ mg Albuterol No Notes: Memori a 0.833 MG/ML 7-27 (Same as: l / 01:57: Duoneb) Ipratropium 00 [place] 0.167 MG/ML Inhalant Solution [DuoNeb] chlorhexidi No [...] phosphate 7-26 Infuse l 23:37: over 4 [employer] 00 hour. Do not infuse phosphorou s [...] Mag-Ox Jorge Alberto 00 400) Magnesium oxide [id number] g elemental magnesium Dose=____m g magnesium oxide (___mg elemental magnesium) Calcium No Notes: Memoria Gluconate 12-24 WASTE: F/P l 23:37: - Sink; E [employer] - Municipal Trash Bin Calcium No Notes: Memoria Carbonate 12-24 (Same As: l 500 MG 23:37: Tums) Jorge Alberto Calcium Tablet Carbonate 500 mg = 200 mg elemental calcium Dose = mg calcium carbonate ( mg elemental calcium) Dextrose No 12.5 gm, Memor ia 50% Syringe 12-24 25 mL, l 23:37: Route: [employer] IVP, Drug Form: INJ, Dosing Weight 102.273, kg, PRN, PRN Blood Glucose Results, Start date: 12/24/18 18:37:00 CDT, Duration: 30 day, Stop date: 01/23/19 18:36:00 CDT, 0 Glucagon No 1 mg, Memoria 12-24 Route: IM, l 23:37: Drug form: [employer] PDR/INJ, PRN, Dosing Weight 102.273, kg, PRN [...] ine 7- for direct l 23:37: administra [employer] 00 tion - DILUTE. Protect from light. (Same as:Levophe d). Administer by either central venous catheter or peripheral ly-inserte d central catheter (PICC) line. Isolyte S No Notes: Memori a PH 7.4 7- (Same as: l 1,000 mL 23:37: Isolyte S [facility] 00 PH 7.4) Ibuprofen No Notes: Memori a 11-29 (Same as: l 14:35: Motrin) [employer] 00 "Do Not Crush" Give with food. Tylenol No Notes: Max Kalia aida 11-29 acetaminop l 14:32: hen 4000 Jorge Alberto 00 mg/day (4 gm/day). (Same as: Tylenol Extra Strength) Pyridostigm Pyridostigm Yes SUUR TAKE 1 [facility] [place] ine [place] 6-25 BILICILER TABLET BY ity of 60 [...] Memoria 4-25 (Same as: l 17:00: Mestinon) [employer] 00 Insulin No Notes: Memoria Lispro 4-25 (Same as: l 08:43: Humalog) [employer] 00 Roll in palms of hands gently; [...] 14:00: Pepcid) sennosides, No Notes: Kalia aida LONG TERM 8.6 MG 4-24 (Same as: l Oral [...] MG / 14:00: Senokot-S) noside Equiv. to LONG TERM 8.6 MG Cassidy-Colac Oral Tablet e. Levothroid [...] Therapy 09-19 Instructio l 16:48: ns, MISC, [employer] 00 ONCALL, Evaluate and Treat _3__ times per week for __4__ weeks, # 1 bag, 0 Refill(s) Ramipril No Notes: Memoria 4-21 (Same l 15:56: as:Altace) Jorge Alberto 00 Furosemide Yes 20 mg = 1 Me moria 20 MG Oral 4-21 tab, PO, l Tablet 15:44: Every [employer] 00 Other Day, # 15 tab, 3 Refill(s) amLODIPine Yes 10 mg = 1 Me moria 10 mg oral 4-21 tab, PO, l tablet 15:44: Daily, # Jorge Alberto 00 30 tab, 3 Refill(s) predniSONE Yes 60 mg = 3 Me moria 20 mg oral 4-21 tab, PO, l tablet 15:44: Daily, X [employer] 00 30 day, # 90 tab, 0 [...] sennosides, Yes 8.6 mg = 1 Memoria LONG TERM 8.6 MG 4-21 tab, PO, l Oral [...] n 00 30 cap, 1 Refill(s), Pharmacy: [id number] metoprolol 2019-0 No 25 mg = 1 Me moria tartrate 25 4-19 tab, PO, l mg oral 23:56: Q12H, # 60 [facility] tablet 00 tab, 1 Refill(s), Pharmacy: [id number] Furosemide 2019-0 No 20 mg = 1 Me moria 20 MG Oral 4-19 tab, PO, l Tablet 23:56: Every [employer] 00 Other Day, # 30 tab, 1 Refill(s), Pharmacy: [id number] amLODIPine 2019-0 No 10 mg = 1 Me moria 10 mg oral 4-19 tab, PO, l tablet 23:56: Daily, # Jorge Alberto 00 30 tab, 1 Refill(s), Pharmacy: [facility] #[id number] sertraline 2018-0 No 25 mg = 1 Me moria 25 mg oral 4-19 tab, PO, l tablet 23:56: Q24H, # 30 Gerda nn 00 tab, 1 Refill(s), Pharmacy: [facility] #[id number] sennosides, 2019-0 No 8.6 mg = 1 Memoria LONG TERM 8.6 MG 4-19 tab, PO, l Oral Tablet 23:56: BID, # 60 H ermann 00 tab, 0 Refill(s), Pharmacy: [facility] #[id number] pyridostigm 2018-0 No 60 mg = 1 M emoria ine 60 mg 4-19 tab, PO, l oral tablet 23:56: Q8Hnow, # H ermann 00 90 tab, 1 Refill(s), Pharmacy: [facility] #[id number] predniSONE 2018-0 No 60 mg = 3 Me moria 20 mg oral 4-19 tab, PO, l tablet 23:56: Daily, # [employer] 00 30 tab, 1 Refill(s), Pharmacy: [facility] #[id number] Insulin 2018-0 No Notes: Memoria regular [...] mL, Route: l Water 23:52: IVP, Drug Jorge Alberto (bolus) IV 00 Form: INJ, Dosing Weight [...] 4-18 (Same as: l 15:30: Humulin N) [employer] Roll in palms of hands gently; Do [...] 4-18 (Same as: l 05:00: Humulin N) [employer] Roll in palms of hands gently; Do not shake vigorously . WASTE: F/P - Black; E - Municipal Trash Bin Stable for 31 days at room temperatur e Expires in days from ____Date Insulin No Notes: Memoria regular 4-18 (Same as: l 01:34: Humulin R) Jorge Alberto Roll in palms [...] 4-17 (Same as: l 05:00: Humulin N) [employer] 00 Roll in palms of hands gently; [...] (Same as: l mg oral 22:00: Colace) [employer] capsule 00 (Do Not Crush) sennosides, No Notes: Kalia aida LONG TERM 4-16 (Same as: l 22:00: Senokot) Jorge [...] 4-16 (Same as: l 21:20: Humulin R) [employer] 00 Roll in palms of hands gently; [...] Syringe 4-16 25 mL, l 21:20: Route: [employer] IVP, Drug Form: INJ, Dosing Weight 91.378, [...] as: l / 12:48: Duoneb) Ipratropium 00 [place] 0.167 MG/ML Inhalant Solution [DuoNeb] Potassium No Notes: Memori a Chloride 4-16 (Same as: l 1.33 MEQ/ML 07:31: Potassium H ermann Oral 00 Chloride) Solution Sertraline No Notes: Memor ia 4-16 (Same as: l 02:00: Zoloft) [employer] 00 Immunoglobu No 25 gm, Kalia aida [...] being intubated (unless the nurse is a REGULATORY SUBMISSIONS SPECIALIST). Same as: Diprivan Rocuronium No Notes: Memor ia 4-15 (Same as: l 11:01: Zemeron) Jorge Alberto 00 Fentanyl No Notes: Memoria 4-15 (Same as: l 11:01: Sublimaze) Jorge Alberto Preservat kimberly free. Propofol No Notes: If Kalia aida 4-15 Diprivan - l 11:01: change Jorge Alberto 00 bottle & tubing every 12 hr Per state nursing law propofol can only be given by a nurse if patient is intubated or being intubated (unless the nurse is a REGULATORY SUBMISSIONS SPECIALIST). Same as: Diprivan ocular No Notes: Memoria lubricant 4-15 (Same as: l 11:00: Lacri-Lube [employer] 00 , Puralube, Duratears Naturale, Artificial Tears, [...] 4-15 IVPB, Drug l empty 02:00: form: [employer] container 1 00 SOLN, bag Bedtime, Start [...] ine 4-15 (Same as: l 00:09: Mestinon) [employer] 00 Calcium No Notes: Memoria Carbonate 4-14 (Same As: l 500 MG 21:44: Tums) [employer] Chewable 00 Calcium Tablet Carbonate 500 mg = 200 mg elemental calcium Dose = mg calcium carbonate ( mg elemental calcium) Calcium No Notes: Memoria Gluconate -14 WASTE: F/P l 21:44: - Sink; E [employer] 00 - Municipal Trash Bin Magnesium No Notes: Memori a Oxide -14 (Same as: l 21:44: Mag-Ox Jorge Alberto 00 400) Magnesium oxide 150vh=549k g elemental magnesium Dose=____m g magnesium oxide (___mg elemental magnesium) Magnesium No Notes: Memori a Sulfate 09-12 WASTE: F/P l 21:44: - Sink; E Jorge Alberto 00 - Municipal Trash Bin potassium No Notes: Memori a phosphate-s - (Same as: l odium 21:44: K-Phos [employer] phosphate 00 Neutral, 250 mg-280 Phospha mg-160 [...] s with feeding tube less than 14 Uzbek (Dobhoff, J-tube etc) and pediatric and patients. sodium No Notes: Memoria phosphate -14 Infuse l 21:44: over 4 [employer] 00 hour. Do not infuse phosphorou s concurrent ly in the same line as TPN or IVF that contains calcium. For double lumen central lines, phosphorou s may be infused in a separate lumen from TPN. potassium No Notes: Memori a phosphate -14 (Same as: l 21:44: K [employer] 00 Phosphate. ) Do not infuse phosphorou s concurrent ly in the same line as TPN or IVF that contains calcium. For double lumen central lines, phosphorou s may be infused in a separate lumen from TPN. 1 mMol phoshate has 1.47 mEq potassium Infuse over 4 hours benzocaine No Notes: Memor ia topical gel -14 (Same As: l 21:38: Maximum [employer] 00 Strength PM Orajel ) Immunoglobu No [...] / 14:00: Senokot-S) sennosides, 00 Equiv. to LONG TERM 8.6 MG Cassidy-Colac Oral Tablet e. Furosemide [...] sodium, 4-13 porcine l porcine 02:00: heparin [employer] 2500 UNT/ML 00 Injectable Solution Lacri-Lube No [...] regular 4-12 units) l 13:17: WASTE: F/P Jorge Alberto - Black; E - Municipal Trash Bin [...] 0.9% -12 (Same as: l 05:20: BD [employer] 00 Posiflush) Dextrose 5% No 1,000 mL, [...] (Same capsular as: antigen Prevnar diphtheria 13) [id number] protein conjugate vaccine / Streptococc us pneumoniae serotype 14 capsular antigen diphtheria [id number] protein conjugate vaccine / Streptococc us pneumoniae [...] mL - Rate: 75 l 12:53: ml/hr, Jorge Alberto Infuse over: 13.3 hr, Route: IV, Dosing Weight 94.3 kg, Total Volume: 1,000, Start date: 09/09/18 7:53:00 CDT, Duration: 30 day, Stop date: 10/09/18 7:52:00 CDT, 2.02, m2 Acyclovir No Notes: Me moria 4-11 MEDICATION l 01:00: WASTE Jorge Alberto 00 Product Size: 500 mg Product Wasted: [...] Notes: Memoria 4-10 porcine l 21:00: heparin [employer] 00 Dextrose 2018- No 12.5 gm, Memor ia 50% Syringe 4-10 25 mL, l 14:49: Route: Jorge Alberto 00 IVP, Drug Form: INJ, Dosing Weight 94.3, kg, PRN, PRN Blood Glucose Results, Start date: 09/08/18 9:49:00 CDT, Duration: 30 day, Stop date: 10/08/18 9:48:00 CDT Glucagon 2018- No 1 mg, Memoria 4-10 Route: IM, l 14:49: Drug form: [employer] PDR/INJ, PRN, Dosing Weight 94.3, kg, PRN [...] Alberto 00 90 tab, 3 Refill(s), Pharmacy: [facility] [id number] rosuvastati Yes 20 mg = 2 M emoria n 10 mg 3-22 tab, PO, l oral tablet 00:09: Bedtime, # Jorge Alberto 00 180 tab, 3 Refill(s) ramipril 5 2019- Yes 10 mg = 2 Me moria mg oral 3-22 cap, PO, l capsule 00:09: Q24H, # [employer] 00 180 cap, 3 Refill(s) Insulin 2019-0 Yes 20 unit, Memori a Glargine 3-22 SUB-Q, l 100 UNT/ML 00:09: QPM, # 15 He rmann Injectable 00 mL, 3 Solution Refill(s) Furosemide 2018- Yes 20 mg = 1 Me moria 20 MG Oral 3-22 tab, PO, l Tablet 00:09: Every [employer] 00 Other Day, # 15 tab, 0 [...] ia 350 3-21 Route: l 13:49: INTRAARTER Jorge Alberto 00 IAL, Dosing Weight 111.6, kg, ONCE, [...] regular 3-19 units) l 14:05: WASTE: F/P [employer] 00 - Black; E - Municipal Trash Bin Stable for 28 days at room temperatur e Expires in days from ____Date 3 ML 0 No 40 unit, Memoria Insulin 3-19 SUB-Q, l Glargine 08:49: Bedtime, # Her restrepo 100 UNT/ML 00 3 mL, 3 Prefilled Refill(s) Syringe [Lantus] Insulin No 60 Memoria regular 3-19 units) l 08:18: WASTE: F/P [employer] 00 - Black; E - Municipal Trash [...] a -19 (Same As: l 06:06: Dulcolax, [employer] Bisco-Lax) Labetalol 2019-0 No 20 mg, 4 [...] mL, Route: l 23:14: Hernán IV, Drug [employer] form: INJ, Q4H, PRN Elevated BP, Start date: 03/24/11 18:14:00, Duration: 30 day, Stop date: 04/23/11 18:13:00, Systolic Blood pressure greater than 160 mmHg magnesium 2010-06 No Lalen 2 gm, 50 Mem oria sulfate 0-24 Angelito mL, Route: l 22:59: Hernán IVPB, Drug Gerda form: INJ, ONCE, Total dose = 2 gm, Start date: 03/24/11 17:59:00, Duration: 1 doses or times, Stop date: 03/24/11 17:59:00 NS 1,000 mL 2010-06 No Allen 1,000 mL, Memoria 0-24 Angelito Rate: 100 l 22:56: Hernán ml/hr, Jorge Alberto 00 Infuse over: 10 hr, Route: IV, Total Volume: 1,000, Start date: 03/24/11 17:56:00, Duration: 30 day, Stop date: 04/23/11 17:55:00 Novolin N 2010-06 No Allen 10 unit, Mem oria 0-24 Angelito 0.1 mL, l 14:00: Hernán Route: [employer] 00 SUB-Q, Drug form: INJ, BID, Start date: 03/24/11 9:00:00, Duration: 30 day, Stop date: 04/22/11 17:00:00 Gibson 2010-06 No Allen 120 mg, 2 Memor [...] Duration: 30 day, Stop date: 04/22/11 7:36:00 Gibson 2010-06 No Allen 120 mg, Memoria Thyroid [...] Duration: 30 day, Stop date: 04/21/11 9:00:00 [place] 5/325 2010-06 No Allen 1 tab, Mem [...] Angelito Rate: 50 l 21:57: Hernán ml/hr, Jorge Alberto 00 Infuse over: 20 hr, Route: IV, Total Volume: 1,000, Start date: 03/22/11 16:57:00, Duration: 30 day, Stop date: 04/21/11 16:56:00 insulin 2010-06 No Allen 3 unit, Memori a aspart 0-22 Angelito 0.03 mL, l 21:28: Hernán Route: [employer] 00 SUB-Q, Drug form: SOLN, TID-Before Meals, [...] Dumont mL, Route: l 15:12: IVP, Drug [employer] 00 form: INJ, ONCE, Priority: STAT, Start [...] Breanna 25 mg, 1 M emoria 0-15 Meryc Neymar cap, l 11:21: Route: PO, Drug [...] 2 Memoria 0-14 Jeane tab, l 14:00: Monument Route: PO, Her restrepo 00 Drug form: TAB, Daily, Start date: 03/14/11 9:00:00, Duration: 30 day, Stop date: 04/12/11 9:00:00 Keppra 500 2010-06 No Darcy 500 mg, 1 Memoria mg oral 0-14 Jeane tab, l tablet 14:00: Ash Route: PO, H ermann 00 Drug form: TAB, Q12H, Start date: 03/14/11 9:00:00, Duration: 30 day, Stop date: 04/12/11 21:00:00 Novolin N 2010-06 No Darcy 10 unit, Memoria 0-14 Jeane 0.1 mL, l 14:00: Monument Route: [employer] 00 SUB-Q, Drug form: INJ, BID, Start date: 03/14/11 9:00:00, Duration: 30 day, Stop date: 04/12/11 17:00:00 docusate 2010-06 No Darcy 100 mg, 1 Memoria sodium 100 0-14 Jeane cap, l mg oral 14:00: Ash Route: PO, [employer] capsule 00 Drug form: CAP, BID, Start [...] Memoria in 0-14 Jeane tab, l 12:00: Monument Route: PO, Her restrepo 00 Drug form: TAB, [id number], Start date: 03/14/11 7:00:00, Duration: 30 day, Stop date: 04/12/11 19:00:00 cefepime 2010-06 No Darcy 2 gm, Me moria 0-14 Jeane Route: IV, l 12:00: Ash Drug form: Her restrepo 00 INJ, [id number], Start date: 03/14/11 7:00:00, Duration: 30 day, Stop date: 04/12/11 23:00:00 Gibson 2010-06 No Darcy 120 mg, 2 Memoria [...] Syringe 0-14 Jeane mL, Route: l 11:06: Monument IVP, Drug [facility] 00 Form: INJ, PRN, PRN Blood Glucose Results, Start date: 03/14/11 6:06:00, Duration: 30 day, Stop date: 04/13/11 5:05:00 insulin 2010-06 No Daryc 4 unit, M sudhakar aspart 0-14 Jeane 0.04 mL, l 11:06: Ash Route: Jorge Alberto 00 SUB-Q, Drug form: SOLN, TID-Before Meals, PRN Blood Glucose Results, Start date: 03/14/11 6:06:00, Duration: 30 day, Stop date: 04/13/11 6:05:00 [place] 5/325 2010-06 No Darcy 1 tab, Memoria oral tablet 0-14 Jeane Route: PO, l 11:02: Monument Drug Form: Her restrepo 00 TAB, Q4H, [...] No Natana 2 gm, Memori a 0-14 Faremr Route: l 04:52: Burden IVPB, Drug Berto [...] Farmer Rate: l 0.9% 04:20: Burden 1,000 Jorge Alberto (Bolus) IV 00 [...] ea, Route: l 01:00: Aaron PO, Drug [employer] 00 form: TAB, BID, Start date: 03/06/11 20:00:00, Duration: 30 day, Stop date: 04/05/11 8:00:00 metoprolol 2010-06 Yes McCasey R 12.5 mg, Memoria 25 mg oral 0-06 Rizvi 0.5 ea, l tablet 20:26: PO, BID, [employer] 19 60 tab, Substituti on Allowed, TAB trazodone 2010-06 Yes [place]asey R 50 mg, 1 Memoria 50 mg oral 0-06 Rizvi tab, PO, l tablet 20:24: Bedtime, Jorge Alberto 01 40 tab, Substituti on Allowed, TAB [place] 5/325 2010-06 Yes McCasey R 1 tab, PO, Memoria oral tablet 0-06 Rizvi Q4H, PRN, l 20:23: 40 tab, Jorge Alberto 43 Pain, Substituti on Allowed, Maintenanc e, TAB Novolin N 2010-06 Yes McCasey R 10 unit, Memoria 100 0-06 Rizvi SUB-Q, l units/mL 20:23: BID, 10 Berto n subcutaneou 30 ml, s injection Substituti on Allowed, SUSP Gibson 2010-06 Yes McCasey R 120 mg, 2 M emoria Thyroid 60 0-06 Rizvi tab, PO, l mg oral 20:23: Before [employer] tablet 07 Breakfast, 60 tab, Substituti on Allowed, TAB Keppra 500 2010-06 Yes McCasey R 500 mg, 1 Memoria mg oral 0-06 Rizvi tab, PO, l tablet 20:22: Q12H, 60 [employer] 39 tab, Substituti on Allowed, TAB Crestor [...] PO, l mg oral 20:21: BID, 30 Jorge Alberto capsule 19 cap, Substituti on Allowed, CAP [...] 02-27 Zeider tab, l 13:00: Route: PO, [employer] 00 Drug form: TAB, TID, Start date: 02/27/11 8:00:00, Duration: 7 day, Stop date: 03/05/11 17:00:00 senna No Bonnie Jyotsna 8.6 mg, 1 M emoria 02-27 Zeider tab, l 13:00: Route: PO, Jorge Alberto 00 Drug Form: TAB, Daily, Start date: 02/27/11 8:00:00, Duration: 30 day, Stop date: 03/28/11 8:00:00 Lasix 40 mg No McCasey R 20 mg, 0.5 Memoria oral tablet 02-27 Rizvi tab, l 13:00: Route: PO, [employer] 00 Drug form: TAB, Daily, Start date: 02/27/11 8:00:00, Stop date: 03/28/11 8:00:00 Gibson No Bonnie Jyotsna 120 mg, 2 Memoria Thyroid 02-27 Zeider tab, l 11:30: Route: PO, [employer] Drug form: TAB, Before Breakfast, Start date: 02/27/11 6:30:00, Duration: 30 day, Stop date: 03/28/11 6:30:00 Insulin No Chaitanya A 5 unit, Mem oria regular 02-27 Crowe 0.05 mL, l 11:30: Route: [employer] 00 SUB-Q, Drug form: SOLN, TID-Before Meals, [...] 02-27 Zeider tab, l 02:00: Route: PO, [employer] Drug form: TAB, Daily, Start date: 02/26/11 [...] 02-27 Zeider tab, l 01:00: Route: PO, [employer] Drug form: TAB, BID, Start date: 02/26/11 20:00:00, Duration: 5 day, Stop date: 03/03/11 8:00:00 insulin No Bonnie Jyotsna 10 unit, 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 02-27 Zeider 0.1 mL, l H 01:00: Route: [employer] 00 SUB-Q, Drug form: INJ, BID, Start [...] Zeider mL, Route: l 22:39: IVP, Drug [employer] form: INJ, ONCE, PRN Nausea & Vomiting, [...] Duration: 30 day, Stop date: 03/28/11 17:38:00 [place] 5/325 No Bonnie Jyotsna 1 tab, Memoria [...] Duration: 30 day, Stop date: 03/28/11 17:38:00 [place] No Bonnie Jyotsna 1 tab, Kalia aida 7.5/325 02-26 Zeider Route: PO, l oral tablet 22:39: Drug Form: [employer] 00 TAB, Q4H, PRN Pain, Start date: 02/26/11 17:39:00, Duration: 30 day, Stop date: 03/28/11 17:38:00 Insulin No Bonnie Jyotsna 2 unit, M emoria regular 02-26 Zeider 0.02 mL, l 22:39: Route: SUB-Q, Drug form: SOLN, TID-Before Meals, PRN Blood Glucose Results, Start date: 02/26/11 17:39:00, Duration: 30 day, Stop date: 03/28/11 17:38:00 Gibson Yes Katie L 120 mg, 2 M emoria Thyroid 60 02-26 Christianson tab, PO, l mg oral 18:40: Before Jorge Alberto tablet 33 Breakfast, 30 tab, Substituti on Allowed, TAB senna 8.6 Yes Katie L 8.6 mg, 1 Memoria mg oral 02-26 Chritsianson tab, PO, l tablet 18:40: Daily, 30 [...] Skyler 133 ml, Memoria 02-24 Dean Route: NV, l 19:38: Joel Drug Form: Herm mercy 00 JEANNIE, ONCE, Start date: 02/24/11 14:38:00, Stop date: 02/24/11 14:38:00 bisacodyl No Skyler 10 mg, 1 M emoria 02-24 Dean supp, l 19:38: Joel Route: NV, Nikolas law 00 Drug form: SUPP, ONCE, [...] 02-24 Route: PO, l 16:01: Aaron ONCE, [employer] Start date: 02/24/11 11:01:00, Stop date: 02/24/11 [...] insulin No Val 10 unit, Kalia aida 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 02-21e 0.1 mL, l H 22:00: Aaron Route: [employer] SUB-Q, Drug form: INJ, BID, Start date: 02/21/11 17:00:00, Stop date: 03/23/11 9:00:00 magnesium 2010- No Val 400 mg, 1 M emoria oxide 02-21e tab, l 22:00: Aaron Route: PONikolasa nn Drug form: TAB, BID, Start date: 02/21/11 17:00:00, Duration: 5 day, Stop date: 02/26/11 9:00:00 calcium 2010-0 No Val 500 mg, 1 Mem oria carbonate 02-21e tab, l 19:26: Aaron Route: [employer] 00 CHEW, Drug form: CHEWTAB, TID, PRN [...] Duration: 30 day, Stop date: 03/22/11 8:00:00 [place] No Claudy 1 tab, Memoria 7.5/325 02-20 [...] Duration: 30 day, Stop date: 03/21/11 9:00:00 Gibson 0 No Albaro 120 mg, 2 Kalia [...] 02-20 Day 100 mL, l 09:00: Route: [employer] 00 IVPB, Q2H, Start date: 02/20/11 4:00:00, [...] emoria 02-20 Kasi Rate: l 03:07: 1,000 Jorge Alberto 00 ml/hr, Infuse over: 0.5 hr, Route: [...] Kasi 20.3 mL, l 01:04: Route: PO, [employer] Drug form: LIQ, Q4H, PRN Fever, Start [...] Duration: 30 day, Stop date: 03/21/11 9:00:00 [place] 5/325 No Albaro 1 tab, Me moria oral tablet 02-19 Dav Route: PO, l 21:14: Christopher Drug Form: Berto n 00 TAB, Q4H, PRN Pain, Start date: 02/19/11 16:14:00, Duration: 30 day, Stop date: 03/21/11 16:13:00 ciprofloxac No Laure Thi 400 mg, Memoria in 02-19 Sahu 200 mL, l 21:10: Route: Jorge Alberto 00 IVPB, Drug form: INJ, [id number], Priority: NOW, Start date: 02/19/11 16:10:00, Duration: [...] Rate: 75 l 0.9% IV 20:56: ml/hr, [employer] 1,000 mL 00 Infuse over: 13.3 hr, Route: IV, Total Volume: 1,000, Start date: 02/19/11 15:56:00, Stop date: 03/21/11 15:55:00 insulin No Albaro 7 unit, Memor ia regular 02-19 Demarco 0.07 mL, l human 20:51: White Route: [employer] recombinant 00 SUB-Q, 100 Drug form: units/mL SOLN, PRN, injectable PRN solution Abnormal Lab Result, Start date: 02/19/11 15:51:00, Duration: 30 day, Stop date: 03/21/11 15:50:00 Dextrose No Albaro 6.25 gm, Mem oria 50% Syringe 02-19 Demarco 12.5 mL, l 20:51: White Route: [employer] 00 IVP, Drug Form: INJ, PRN, PRN Abnormal Lab Result, Start date: 02/19/11 15:51:00, Duration: 30 day, Stop date: 03/21/11 15:50:00 Saline No Albaro 5 ml, Memoria Flush 0.9% 02-19 Demarco Route: l 20:51: Christopher IVP, Drug [employer] Form: INJ, PRN, PRN Line Flush, Start date: 02/19/11 15:51:00, Duration: 30 day, Stop date: 03/21/11 15:50:00 morphine No Albaro 2 mg, 1 Kalia aida Sulfate 02-19 Demarco mL, Route: l 20:51: Christopher IVP, Drug [employer] 00 form: INJ, Q1H, PRN Pain Score [...] Carlos 0.1 mL, l 19:18: Herman Route: [employer] 00 IVP, Drug form: INJ, Q2MIN, PRN [...] IVPB, Drug Jorge Alberto 00 form: INJ, [id number], Start date: 02/19/11 14:00:00, Duration: 30 day, Stop date: 03/21/11 2:00:00 ondansetron Yes Bonnie Jyotsna 4 mg, 2 Memoria 2 mg/mL 9-20 Zeider mL, IVP, l injectable 21:12: Q8H, PRN, He rmann solution 09 30 mL, Nausea & Vomiting, Substituti on Allowed, SOLN Milk of Yes Bonnie Jyotsna 1.2 gm, 5 Memoria Magnesia 9-20 Zeider mL, PO, l 24% oral 21:12: Daily, [employer] concentrate 02 PRN, 150 mL, Constipati on, Substituti on Allowed, Maintenanc e, CONC Prinivil 10 Yes Bonnie Jyotsna 10 mg, 1 Memoria mg oral 9-20 Zeider tab, PO, l tablet 21:11: QPM, 30 Jorge Laberto 52 tab, Substituti on Allowed, TAB Keppra 500 Yes Bonnie Jyotsna 500 mg, 1 Memoria mg oral 9-20 Zeider tab, PO, l tablet 21:11: Q12H, 60 [employer] 44 tab, Substituti on Allowed, TAB Humulin [...] 1 Memoria 10 mg 9-20 Zeider supp, NV, l rectal 21:08: Bedtime, Jorge Alberto suppository 53 PRN, 30 supp, Constipati on, Substituti on Allowed, SUPP [place] 5/325 Yes Bonnie Jyotsna 1 tab, PO, Memoria oral tablet 9-20 Zeider Q4H, PRN, l 21:08: 30 tab, as [employer] 50 needed for pain, Substituti on Allowed, Maintenanc e, TAB Gibson Yes Bonnie Jyotsna 120 mg, 1 Memoria [...] tab, PO, l tablet 21:08: Q8H, 90 [employer] 06 tab, Substituti on Allowed, TAB normal [...] l 25 mEq oral 23:15: on Allowed [employer] tablet, 20 effervescen t potassium No Mujahed M 40 mEq, 30 Memoria chloride -14 Alikhan mL, Route: l 16:00: PO, Drug Jorge Alberto 00 form: LIQ, Daily, Start date: 02/12/11 11:00:00, Duration: 30 day, Stop date: 03/14/11 8:00:00 Kayexalate No Fide B 15 gm, 60 Memoria 9-14 Dean mL, Route: l 02:17: PO, Drug form: SUSP, ONCE, Start date: 02/11/11 21:17:00, Stop date: 02/11/11 21:17:00 Kayexalate No Meilani H 30 gm, 120 Memoria 9-13 Mapa mL, Route: l 22:22: PO, Drug Jorge Alberto 00 form: SUSP, ONCE, Start date: 02/11/11 17:22:00, Stop date: 02/11/11 17:22:00 NS (Bolus) No Skyler 1,000 mL, Memoria IV 1,000 mL 02-11 Dean Rate: l 13:37: Joel 1,000 Jorge Alberto 00 ml/hr, Infuse over: 1 hr, Route: IV, Total Volume: 1,000, Priority: STAT, Start date: 02/11/11 8:37:00, Duration: 1 doses or times, Stop date: 02/11/11 9:36:00, Bolus DoseBolus Dose dexamethaso No Bonnie Jyotsna 1 mg, 1 Memoria ne 9-13 Zeider tab, l 13:00: Route: PO, [employer] 00 Drug form: TAB, Daily, Start date: 02/11/11 8:00:00, Duration: 2 day, Stop date: 02/12/11 8:00:00 Fleet Enema 2010- No Skyler 133 ml, Memoria 02-10 Dean Route: NV, l 19:15: Joel Drug Form: [facility] 00 JEANNIE, ONCE, Start date: 02/10/11 14:15:00, Stop date: 02/10/11 14:15:00 bisacodyl No Skyler 10 mg, 1 M emoria 02-10 Dean supp, l 19:15: Joel Route: NV, Herm mercy Drug form: SUPP, ONCE, Start date: 02/10/11 14:15:00, Stop date: 02/10/11 14:15:00 dexamethaso No Bonnie Jyotsna 1 mg, 1 Memoria ne 02-09 Zeider tab, l 13:00: Route: PO, [employer] 00 Drug form: TAB, BID, Start date: [...] 02-06 Zeider tab, l 22:00: Route: PO, [employer] 00 Drug form: TAB, QPM, Start date: 02/06/11 17:00:00, Duration: 30 day, Stop date: 03/07/11 17:00:00 dexamethaso 2010-0 No Meilani H 2 mg, 1 Memoria ne 02-05 [place] tab, l 13:00: Route: PO, [employer] 00 Drug form: TAB, TID, Start date: 02/05/11 8:00:00, Duration: 2 day, Stop date: 02/06/11 17:00:00 lisinopril No Bonnie Jyotsna 10 mg, 1 Memoria 02-04 Zeider tab, l 13:00: Route: PO, Jorge Alberto 00 Drug form: TAB, QPM, Start date: 02/04/11 8:00:00, Duration: 30 day, Stop date: 03/05/11 17:00:00 insulin 2010-0 No Mujahed M 8 unit, Ak moria 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 Alikhan 0.08 mL, l H 11:30: Route: Jorge Alberto SUB-Q, Drug form: INJ, Before Breakfast, Start date: 02/04/11 6:30:00, Stop date: 03/05/11 6:30:00 insulin 2010-0 No Mujahed M 8 unit, Ak moria 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 Alikhan 0.08 mL, l H 02:00: Route: Jorge Alberto 00 SUB-Q, Drug form: INJ, Bedtime, Start date: 02/03/11 21:00:00, Stop date: 03/04/11 21:00:00 potassium 2010-0 No Darcy 40 mEq, 2 Memoria chloride 20 02-03 Jeane tab, l mEq oral 19:29: Monument Route: PO, Jorge Alberto tablet, 00 Drug [...] 17:00:00 insulin No Darcy 15 unit, 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 02-03 Jeane 0.15 mL, l H 05:00: Ash Route: [employer] SUB-Q, Drug form: INJ, Q24H, Start date: [...] l tablet 22:00: Ash Route: PO, H ermann 00 Drug form: TAB, BID, Start date: 02/01/11 17:00:00, Stop date: 03/03/11 8:00:00 heparin No Sky 5,000 Memoria 02-01 Mzee Rizvi unit, 1 l 21:00: mL, Route: Jorge Alberto SUB-Q, Drug form: INJ, Q8H, Start date: [...] l tablet 14:00: Ash Route: PO, H Drug form: TAB, Daily, Start date: 02/01/11 9:00:00, Duration: 30 day, Stop date: 03/02/11 9:00:00 Gibson No Bonnie Jyotsna 120 mg, 2 Memoria [...] Memoria 02-01 Jeane 0.2 mL, l 05:00: Monument Route: SUB-Q, Drug form: INJ, BID, Start [...] mL, l 22:22: Nur Route: Jorge Alberto 00 SUB-Q, Drug form: [...] 01-31 Jv supp, l 22:22: Nur Route: NV, Gerda nn 00 Drug form: SUPP, Bedtime, PRN Constipati on, Start date: 01/31/11 17:22:00, Duration: 30 day, Stop date: 03/02/11 17:21:00 ondansetron No Igdeon 4 mg, 2 Memoria 01-31 Jv mL, [...] 01-31 Zeider SUB-Q, l 22:00: Drug form: [employer] 00 INJ, BID, Start date: 01/31/11 17:00:00, Duration: 30 day, Stop date: 03/02/11 9:00:00 metFORmin No Bonnie Jyotsna 500 mg, 1 Memoria 500 mg oral 01-31 Zeider tab, l tablet 21:00: Route: PO, Gerda nn 00 Drug form: TAB, Q8H, Start date: 01/31/11 16:00:00, Duration: 30 day, Stop date: 03/02/11 8:00:00 [place] 5/325 No Bonnie Jyotsna 1 tab, Memoria oral tablet 01-31 Zeider Route: PO, l 19:56: Drug Form: Jorge Alberto 00 TAB, Q4H, PRN as needed for pain, Start date: 01/31/11 14:56:00, Duration: 30 day, Stop date: 03/02/11 14:55:00 bisacodyl No Bonnie Jyotsna 10 mg, Memoria 01-31 Zeider Route: NV, l 19:56: Drug form: [employer] 00 SUPP, Daily, PRN as needed for [...] 1 Memoria 10 mg 01-31 Zeider supp, NV, l rectal 17:52: Daily, [employer] suppository 36 PRN, 60 supp, Constipati on, Substituti on Allowed, SUPP [place] 5325 Yes Bonnie Carreray 1 tab, PO, Memoria oral tablet 01-31 Zeider Q4H, PRN, l 17:52: 60 tab, [employer] 26 Headache, Substituti on Allowed, Maintenanc e, TAB [place] No Abel 1 tab, M emoria oral tablet 01-30 Howard Route: PO, l 20:44: Bonner Drug Form: Berto n 00 TAB, Q4H, PRN Headache, Start date: 01/30/11 15:44:00, Duration: 30 day, Stop date: 03/01/11 15:43:00 dexamethaso No Katie L 4 mg, 1 Memoria ne 01-29 Christianson tab, l 17:00: Route: PO, [employer] 00 Drug form: TAB, Q6H-02, Start date: 01/29/11 12:00:00, Stop date: 02/28/11 6:00:00 insulin No Memo 20 unit, Kalia aida 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 01-29 Omidvar 0.2 mL, l H 13:00: Route: [employer] 00 SUB-Q, Drug form: INJ, Q8H, Start [...] Jeane 1 tab, l oral tablet 22:00: Ash Route: PO, Drug form: TAB, BID, Start [...] 01-26 Avinash tab, l 21:00: Route: PO, Jorge Alberto 00 Drug form: TAB, Q8H, Start date: 01/26/11 16:00:00, Stop date: 02/25/11 8:00:00 dexamethaso No Sky 6 mg, 1 M emoria ne 01-26 Ollie Rizvi tab, l 21:00: Route: PO, Jorge Alberto 00 Drug form: TAB, Q4H, Start date: [...] ne 01-26 Route: l 17:00: IVP, Q6H, Jorge Alberto 00 Start date: 01/26/11 12:00:00, Duration: 30 day, Stop date: 02/25/11 6:00:00 mannitol No Isabel 75 gm, 375 Me moria 01-26 Manasa mL, Route: l 17:00: Christian IVPB, Drug Herm mercy 00 form: INJ, Q6H, Start date: 01/26/11 12:00:00, Duration: 30 day, Stop date: 02/25/11 6:00:00 mannitol No Imoigele P 75 gm, 375 Memoria 01-26 Aisiku mL, Route: l 15:00: IVPB, Drug Jorge Alberto form: INJ, ONCE, Start date: 01/26/11 10:00:00, Stop date: 01/26/11 10:00:00 potassium 2010-0 No Miles D 36 mmol, M emoria phosphate 01-26 Christian 12 mL, l 08:29: Route: [employer] 00 IVPB, On Adm, Start date: 01/26/11 3:29:00, Duration: 1 doses or times, Stop date: 01/26/11 8:00:00 mannitol 2010-0 No Odell Voda 50 gm, Mem oria 01-25 Route: l 22:50: IVPB, [employer] 00 ONCE, Start date: 01/25/11 17:50:00, Stop date: 01/25/11 17:50:00 heparin 2010- No Sky 5,000 Memoria - [facility] Rizvi unit, 1 l 21:00: mL, Route: [...] [place] Rate: l unit + 04:59: TITRATE, [employer] Sodium Route: IV, Chloride Total 0.9% IV 99 Volume: mL 100, Start date: 01/24/11 23:59:00, Duration: 30 day, Stop date: 02/23/11 23:58:00 Dextrose No Miles D 12.5 gm, Me moria 50% Syringe 01-25 Christian 25 mL, l 04:41: Route: [employer] 00 IVP, Drug Form: INJ, PRN, PRN Abnormal Lab Result, Start date: 01/24/11 23:41:00, Duration: 30 day, Stop date: 02/23/11 23:40:00 Insulin No Miles D 100 mL, Kalia aida regular 100 01-25 Christian Rate: l unit + 04:41: Start at [employer] Sodium 00 0.05 Chloride units/kg/h 0.9% our-, [...] 01-25 Ryan Route: l 0.12% 01:00: S&SPIT, [employer] liquid 00 Q4H, Drug form: LIQ, Start [...] Route: l 14:00: IVPB, Drug form: INJ, STAU04H, Start date: 01/24/11 9:00:00, Duration: 30 day, [...] 8- tab, PO, l 00:20: Daily, 30 [employer] 49 tab, Substituti on Allowed, TAB heparin [...] Jorge Alberto jimenez 06 Substituti on Allowed Gibson Yes Bonnie Goyal 1 tab, PO, Memoria Thyroid 120 8-25 Zeider Daily, 30 l mg oral 19:28: tab, [employer] tablet 50 Substituti on Allowed, TAB docusate No Roopa Tatyana 100 mg, 1 Memoria 8-25 Ryan cap, l 14:00: Route: PO, [employer] Drug form: CAP, BID, Start date: 01/23/11 [...] 01-23 Day 10 mL, l 13:30: Route: [employer] 00 IVPB, ONCE, Start date: 01/23/11 8:30:00, Stop date: 01/23/11 8:30:00 magnesium No Ramos L 2 gm, 50 Memoria sulfate 01-23 Day mL, Route: l 13:20: IVPB, Drug form: INJ, Q2H, Start date: 01/23/11 8:20:00, Duration: 2 doses or times, Stop date: 01/23/11 10:00:00 dexamethaso No Miles D 4 mg, 1 Memoria ne 8-25 Christian tab, l 11:00: Route: PO, [employer] 00 Drug form: TAB, Q6H, Start date: [...] Rizvi mL, Route: l 10:22: IVP, Drug Jorge Alberto 00 form: INJ, Q4H, PRN Pain Score [...] 8-25 Jv supp, l 10:14: Boom Route: NV, Gerda nn 00 Drug form: SUPP, Daily, [...] Oral MG Oral ity of Tablet Tablet [place] [facility] Trulicity Trulicity Yes Unive rs 0.75 0.75 ity of MG/0.5ML MG/0.5ML [place] Subcutaneou Subcutaneou P hysici s Solution s [...] TABS 100 MG TABS i ty of [place] [facility] Vital Signs Vital Name Observation Time Observation Value Comments Source Systolic blood 2020-03-27 144 mm[Hg] [facility] 12:12:00 [place] [facility] Diastolic blood 2020-03-27 64 mm[Hg] [facility] pressure 12:12:00 [place] [facility] Body temperature 2020-03-27 97.5 [degF] [facility] 12:12:00 [place] [facility] Heart Rate 2020-03-27 84 /min [facility] 12:12:00 [place] [facility] Respiratory rate 2020-03-27 18 /min [facility] 12:12:00 [place] [facility] Respitory Rate 2020-02-27 [facility] 18:00:00 Systolic (mm Hg) 2020-02-27 [facility] rmann 18:00:00 Diastolic (mm Hg) 2020-02-27 [facility] ermann 18:00:00 Respitory Rate 2020-02-27 [facility] 17:00:00 Respitory Rate 2020-02-27 [facility] 16:00:00 Systolic (mm Hg) 2020-02-27 [facility] rmann 14:00:00 Diastolic (mm Hg) 2020-02-27 [facility] ermann 14:00:00 Systolic (mm Hg) 2020-02-27 [facility] rmann 12:00:00 Diastolic (mm Hg) 2020-02-27 [facility] ermann 12:00:00 Temperature Oral 2020-02-23 98.4 F [facility] rmann (F) 01:00:00 Temperature Oral 2020-02-22 98.8 F [facility] rmann (F) 21:35:00 Temperature Oral 2020-02-22 96.8 F [facility] rmann (F) 18:00:00 Respitory Rate 2020-02-20 [facility] 07:00:00 Respitory Rate 2020-02-20 [facility] 06:00:00 Temperature Oral 2020-02-20 98 F [facility] rmann (F) 05:00:00 Respitory Rate 2020-02-20 [facility] 05:00:00 Systolic (mm Hg) 2020-02-20 [facility] He rmann 05:00:00 Diastolic (mm Hg) 2020-02-20 [facility] H ermann 05:00:00 Systolic (mm Hg) 2020-02-20 [facility] rmann 03:00:00 Diastolic (mm Hg) 2020-02-20 [facility] ermann 03:00:00 Temperature Oral 2020-02-20 97.4 F [facility] rmann (F) 01:00:00 Systolic (mm Hg) 2020-02-20 [facility] rmann 01:00:00 Diastolic (mm Hg) 2020-02-20 [facility] ermann 01:00:00 Temperature Oral 2020-02-16 98 F [facility] rmann (F) 21:00:00 Heart Rate 2020-02-16 [facility] Berto n 12:21:00 Heart Rate 2020-02-16 [facility] 09:32:00 Heart Rate 2020-02-16 [facility] 05:09:00 Height 2020-02-15 149.86 cm [facility] 22:43:00 Weight 2020-02-15 [facility] 22:43:00 BMI Calculated 2020-02-15 [facility] Herm mecry 22:43:00 Systolic blood 2020-02-15 136 mm[Hg] [facility] - pressure 13:00:00 [facility] Diastolic blood 2020-02-15 63 mm[Hg] [facility] - pressure 13:00:00 Medical Center Heart rate 2020-02-15 71 /min [facility] - 13:00:00 [facility] Body temperature 2020-02-[address] [facility] - 13:00:00 [facility] Respiratory rate 2020-02-15 18 /min [facility] - 13:00:00 [facility] Oxygen saturation 2020-02-15 96 /min [facility] in Arterial blood 13:00:00 Medical nter by Pulse oximetry Body height 2020-02-11 149.9 cm [facility] - 22:11:00 [facility] Body weight 2020-02-11 84.505 kg [facility] - 22:11:00 [facility] BMI 2020-02-11 37.63 kg/m2 [facility] - 22:11:00 [facility] Heart Rate 2019-12-20 [facility] 16:56:00 [...] ermann 14:30:00 Temperature Oral 2019-11-24 99.0 F [facility] rmann (F) 12:57:00 Height 2019-11-23 149.86 cm [facility] Berto n 07:25:00 Weight 2019-11-23 [facility] 07:25:00 BMI Calculated 2019-11-23 [facility] 07:25:00 Temperature Oral 2019-11-22 97.4 F [facility] rmann (F) 14:53:00 Temperature Oral 2019-11-22 97.9 F [facility] rmann (F) 11:18:00 Heart Rate 2019-11-22 Jan Connoran n 10:08:00 BP Systolic 2019-05-05 148 mm[Hg] [facility] 11:27:00 [place] [facility] BP Diastolic 2019-05-05 62 mm[Hg] [facility] 11[facility]27:00 [facility] Height 2019-05-05 59 [in_us] [facility] 11:27:00 [facility] Temperature 2019-05-05 98.5 [degF] [facility] 11:27:00 [facility] Heart Rate 2019-05-05 72 /min [facility] 11:27:00 [place] [facility] Height 2019-05-05 59 [in_us] [facility] 11:26:00 [facility] Temperature 2019-05-05 98.5 [degF] [facility] 11:26:00 [place] [facility] Temperature Oral 2019-03-04 [...] n 12:59:00 Height 2019-02-09 149.86 cm [facility] 20:57:00 Weight 2019-02-09 [facility] 20:57:00 BMI Calculated 2019-02-05 [facility] 14:39:00 Height 2019-01-25 59 [in_us] [facility] 08:41:00 [place] [facility] Temperature 2019-01-25 98.3 [degF] [facility] 08:41:00 [place] [facility] Temperature Oral 2019-01-10 97.6 F [facility] He rmann (F) 20:03:00 Heart Rate 2019-01-10 [...] n 23:49:00 BMI Calculated 2018-12-24 [facility] 23:49:00 Temperature Oral 2018-11-29 98.8 F [facility] [...] 12:44:00 BP Systolic 2018-11-11 149 mm[Hg] Location: [facility]ending [facility] to [facility] 12:31:00 Position: [place] [facility] BP Diastolic 2018-11-11 65 mm[Hg] Location: [facility] to [facility] 12:31:00 Position: [place] [facility] Height 2018-11-11 59 [in_us] [facility] 12:31:00 [place] [facility] Weight 2018-11-11 213 [lb_av] [facility] 12:31:00 [place] [facility] Body Mass Index 2018-11-11 43.02 kg/m2 [facility] o f Calculated 12:31:00 [place] [facility] Temperature 2018-11-11 97.6 [degF] Method: Oral [facility] 12:31:00 [place] [facility] Heart Rate 2018-11-11 74 /min Location: [facility] 12:31:00 Apical; [place] [facility] BP Systolic 2018-10-14 164 mm[Hg] Location: [facility] 12:27:00 Position: [place] [facility] BP Diastolic 2018-10-14 68 mm[Hg] Location: [facility] 12:27:00 Position: [place] [facility] Height 2018-10-14 59 [in_us] [facility] 12:27:00 [place] [facility] Weight 2018-10-14 215 [lb_av] [facility] 12:27:00 [place] [facility] Body Mass Index 2018-10-14 43.43 kg/m2 [facility] o f Calculated 12:27:00 [place] [facility] Temperature 2018-10-14 98.5 [degF] Method: Oral [facility] 12:27:00 [place] [facility] Heart Rate 2018-10-14 84 /min Location: [facility] 12:27:00 Apical; [place] [facility] Systolic (mm [...] 23:07:00 BP Systolic 2018-09-21 136 mm[Hg] Location: [facility] 11:28:00 [place] [facility] BP Diastolic 2018-09-21 88 mm[Hg] Location: [facility] 11:28:00 [facility] Height 2018-09-21 59 [in_us] [facility] 11:28:00 [place] [facility] Weight 2018-09-21 205 [lb_av] [facility] 11:28:00 [place] [facility] Body Mass Index 2018-09-21 41.41 kg/m2 University o f Calculated 11:28:00 [place] [facility] Temperature 2018-09-21 96.8 [degF] Method: Oral [facility] 11:28:00 [place] [facility] Heart Rate 2018-09-21 84 /min Location: [facility] 11:28:00 Apical; [place] [facility] Temperature Oral 2018-09-20 98.1 F [...] Jan Berto n 04:33:00 Heart Rate 2018-09-11 Jan Berto n 16:45:00 Heart Rate 2018-09-11 Jan [...] rmann (F) 08:28:00 Height 2011-01-23 149.86 cm [facility] 09:37:00 Weight 2011-01-23 [facility] 09:37:00 Procedures Procedure Date / Time Performing Source Performed Clinician [QL] CBC (INCLUDES DIFF/PLT) 2020-03-27 [facility] 00:00:00 Physicians REPORT OF PROCEDURE - 2020-02-22 Provider, Jane Reyes ukes - ENDOSCOPY SCAN 17:13:37 Scanning [facility] POCT-GLUCOSE METER 2020-02-15 Harley, Gerry [facility] - 13:09:00 [facility] POCT-GLUCOSE METER 2020-02-[address] [facility] - 08:38:00 [facility] CBC W/PLT COUNT & AUTO 2020-02-[address] [facility] - DIFFERENTIAL 04:38:00 [facility] POCT-GLUCOSE METER 2020-02-14 Philippe Shirley Khan [facility] - 21:04:00 [facility] POCT-GLUCOSE METER 2020-02-14 Philippe Shirley Khan [facility] - 18:04:00 [facility] URINE CULTURE 2020-02-[address] [facility] - 15:04:00 [facility] URINALYSIS W/ REFLEX URINE 2020-02-[address] [facility] - CULTURE 15:04:00 [facility] POCT-GLUCOSE METER 2020-02-14 Philippe Shirley [facility] - 12:17:00 [facility] POCT-GLUCOSE METER 2020-02-14 Philippe Shirley Khan [facility] - 11:51:00 [facility] XR ESOPH SWALLOW FUNCTION 2020-02-[address] [facility] - W/CINE VIDEO 10:24:00 [facility] CBC W/PLT COUNT & AUTO 2020-02-[address] [facility] - DIFFERENTIAL 04:24:00 [facility] POCT-GLUCOSE METER 2020-02-13 Philippe Shirley Khan [facility] - 22:29:00 [facility] POCT-GLUCOSE METER 2020-02-13 Philippe Shirley Khan [facility] - 17:26:00 [facility] XR CHEST 2 VIEWS 2020-02-[address] [facility] - 12:01:00 [facility] POCT-GLUCOSE METER 2020-02-[address] [facility] - 08:03:00 [facility] POCT-GLUCOSE METER 2020-02-[address] [facility] - 22:59:00 [facility] POCT-GLUCOSE METER 2020-02-[address] [facility] - 17:20:00 [facility] XR CHEST 1 VIEW 2020-02-[address] [facility] - PORTABLE/BEDSIDE 12:43:00 [facility] POCT-GLUCOSE METER 2020-02-[address] [facility] - 12:06:00 [facility] TSH/FREE T4 IF INDICATED 2020-02-12 [facility] 10:54:00 [facility] VITAMIN B12 2020-02-12 Malissa Francisco Dylan [facility] - 10:54:00 [facility] LACTATE DEHYDROGENASE (LDH) 2020-02-[address] [facility] - 10:54:00 [facility] CREATINE KINASE (CK) 2020-02-[address] [facility] Ruby kes - 10:54:00 [facility] COMPREHENSIVE METABOLIC PANEL 2020-02-12 Malissa Francisco Dylan [facility] - 10:54:00 [facility] POCT-GLUCOSE METER 2020-02-[address] [facility] - 09:36:00 [facility] CBC W/PLT COUNT & AUTO 2020-02-12 Francisco Leonardo Dylan [facility] DIFFERENTIAL 08:49:00 [facility] SARS-COV2/RT-PCR ([facility] & REF 2020-02-12 Nalam, Susy Socorro [facility] 03:39:00 [facility] Transcatheter retrieval, 2019-02-21 Feli Azul percutaneous, of 20:58:00 intravascular foreign body (eg, fractured venous or arterial catheter), includes radiological supervision and interpretation, and imaging guidance (ultrasound or fluoroscopy), when performed [place] Insertion 2019-01-28 [facility] 00:00:00 Physicians XRAY Chest 2 views [id number] 2018-11-12 [facility] 00:00:00 Physicians IVIG Infusion Therapy 2018-11-11 [facility] 00:00:00 Physicians [QLH] CBC (INCLUDES DIFF/PLT) [facility] [QLH] CMP W/EGFR 2018-11-11 [facility]as 00:00:00 Physicians MA Bone Density Scan [id number] 2018-10-14 [facility] 00:00:00 Physicians Selective catheter placement, 2018-08-19 Ak morial [employer] vertebral artery, unilateral, 13:02:00 with angiography of the ipsilateral vertebral circulation and all associated radiological supervision and interpretation, includes angiography of the cervicocerebral arch, when performed Insertion or Replacement of 2011-01-26 Kalia rial [employer] Skull Tongs or Halo Traction 05:00:00 Device Other Excision or Destruction 2011-01-26 Ak morial Jorge Alberto of Lesion or Tissue of Brain 05:00:00 Excision of Lesion or Tissue 2011-01-24 [facility] orial Jorge Alberto of Cerebral Meninges 05:00:00 Intrac[facility] 05:[facility]00 Transfusion of Packed Cells 2011-01-24 Kalia rial Jorge Alberto 05:00:00 History of [facility] Ventriculoperitoneal shunt Physi cians creation Cervical laminectomy [facility] section [facility] n Resection [facility] Shunt construction [facility] Tonsillectomy [facility] Plan of Care Planned Activity Planned Date Details Comments Source Future Scheduled 2027-02-24 [facility]:00 malignant neoplasm Medical C enter of colon (procedure) [code = 233839931] Future Scheduled 2020-04-03 [QL] CBC (INCLUDES Unive [...] Pending 00:00:00 DIFF/PLT) [code = Dates Schedule: [place] [facility] [QL] CBC (INCLUDES 04/03/2020, DIFF/PLT)] 04/10/2020 ... Future Scheduled 2020-01-[address] [facility] - Test 00:00:00 (#1) [code = Medical Center INFLUENZA VACCINE (#1)] Diagnostic Test 2018-11-12 XRAY Chest 2 views Univer sity of Pending 00:00:00 09319 [code = [place] [facility] [id number]] Future Scheduled 2014-06-[address] [facility] - Test 00:00:00 WELLNESS (YEAR 2 or Medical Center FIRST YEAR if no IPPE) [code = MEDICARE ANNUAL WELLNESS (YEAR 2 or FIRST YEAR if no IPPE)] Future Scheduled 2012-01-10 PNEUMOCOCCAL [address]+ [facility] - Test 00:00:00 YRS (1 of 1 - Medical Center KZVH10_Aaeqiva PCV13) [code = PNEUMOCOCCAL 65+ YRS (1 of 1 - TVLF15_Dlsjkfl PCV13)] Future Scheduled [address] [facility] - Test 00:00:00 malignant neoplasm Medical C enter of breast (procedure) [code = 018338287] Future Appointment 2020-06-26 [facility] Dougie DRAKE Physician s Encounters Start End Encounter Admission Attending Care Care Encounter Source Date/Time Date/Time Type Type Clinicians Facility Department ID 2020-02-15 Inpatient U [facility] [id number] MH H 16:11:00 2019-02-05 Inpatient U [facility] MED [id number] H H 08:54:00 2018-12-24 Inpatient U [facility] [id number] H H 18:32:00 2018-08-16 Inpatient E [facility] [id number] [facility] H 23:35:00 2020-03-27 2020-03-27 AppointNIRALI Bueno [id number] [facility] 11:30:00 11:30:00 lisette CORRIGAN M.D. [place] it of Jo-Ann DRAKE M.D. [place] [facility] 2020-02-15 2020-02-27 Outpatient Lamont [facility] [id number] 16:11:00 14:07:00 Clovis Matute 2020-02-15 2020-02-15 Outpatient Hellen, [facility] [id number] 16:11:00 16:11:00 David Suresh 2020-01-05 2020-01-05 Outpatient Fernandez, MHOIH OI [id number] 11:40:00 23:59:00 Andre Kaur 05 2020-01-05 2020-01-05 NIRALI Olson [facility] [id number] Univers 10:00:00 10:00:00 t; Cheko CORRIGAN [facility] [place] Cheko CORRIGAN Physi ci ans 2019-11-22 2019-12-20 Outpatient Nikunj, [facility] [id number] 05:06:00 15:30:00 Arsha 75 Estella 2019-11-22 2019-12-20 Outpatient Nikunj, [facility] [id number] 05:06:00 15:30:00 Arsha 75 Estella 2019-11-29 2019-11-29 NIRALI Olson [facility] [id number] Univers 11:00:00 11:00:00 t; Cheko CORRIGAN [facility] [place] Cheko CORRIGAN Physi ci ans 2019-11-22 2019-11-22 Outpatient Nikunj, [facility] [id number] 05:06:00 05:06:00 Arsha 75 Estella 2019-11-22 2019-11-22 Outpatient [facility] [id number] 05:06:00 05:06:00 Saleem Perry 2019-11-22 2019-11-22 Outpatient Osvaldo [facility] [id number] 05:06:00 05:06:00 Saleem Perry 2019-11-22 2019-11-22 Inpatient E [facility] MED [id number] [facility] 12:06:00 03:48:00 2019-05-05 2019-05-05 NIRALI Olson Neurology - [id number] Univers 11:30:00 11:30:00 t; [facility] ans 2019-02-05 2019-03-04 Outpatient Hernán [facility] [id number] 08:54:00 18:18:00 Jai Perez 2019-01-25 2019-01-25 AppointNIRALI Bueno Neurology - [id number] Univers 08:00:00 08:00:00 t; Cheko CORRIGAN [facility] Cheko CORRIGAN [facility] ans 2018-12-24 2019-01-10 Outpatient Lyric [facility] [id number] 18:32:00 15:53:00 Reji 2018-11-29 2018-11-29 Outpatient Stan [facility] [id number] 07:33:57 12:20:00 Abel Vizcaino 2018-11-29 2018-11-29 Emergency E [facility] [id number] [facility] 07:33:00 07:33:00 2018-11-18 2018-11-18 [id number] 09:50:00 23:59:00 [place] 2018-11-11 2018-11-11 Appointrick DRAKE [facility] Neurology - [id number] [facility] 11:00:00 11:00:00 t; Cheko CORRIGAN [facility] Dougie CORRIGAN M.D. [facility] ans 2018-10-21 2018-10-21 Outpatient BOBBY Drake OIP [id number] 10:21:00 23:59:00 [place] 2018-10-14 2018-10-14 Appointrick DRAKE [facility] Neurology [id number] Univers 11:30:00 11:30:00 t; Cheko CORRIGAN [facility] [place] Cheko CORRIGAN Physi ci ans 2018-09-21 2018-09-23 Outpatient Hellen [facility] [id number] 18:06:00 16:20:00 David Jacobo 13 2018-09-21 2018-09-23 Outpatient Hellen [facility] [id number] 18:06:00 16:20:00 David Jacobo 13 2018-09-21 2018-09-21 Outpatient U [facility] [id number] [facility] 18:06:00 18:06:00 2018-09-21 2018-09-21 AppointNIRALI Bueno [facility] [id number] Univers 10:30:00 10:30:00 t; Cheko CORRIGAN ity of Dougie DRAKE M.D. [facility] ans 2018-09-12 2018-09-20 Outpatient Smart, [facility] [id number] 15:01:00 16:23:00 Sean 01 Luis 2018-09-12 2018-09-10 Inpatient U [facility] [id number] [facility] 15:01:00 00:20:00 2018-09-09 2018-09-09 Outpatient Heronpara, [facility] [id number] 11:57:00 22:17:00 Sadi N 00 2018-09-09 2018-09-08 Inpatient U [facility] MED [id number] [facility]oria 11:57:00 09:51:00 [employer] [facility] 2018-08-16 2018-08-19 Outpatient Smart, [facility] [id number] 15:03:00 21:09:00 Sean 05 Luis 2018-08-16 2018-08-17 Outpatient MHMISCHER MHMISCHER [id number] 10:11:00 23:59:59 00 Results Test Description Test [...] code = MCH) 24.1 pg 27.0-31.0 [facility] HkxgtnoRETLBUWGMJ3457-09-13 05:52:0030.9[facility] HermannHEMATOLOGY 2020-02-27 05:52:0020.2[facility] EqppsngEWMMLEDDBE6852-18-44 05:52:14242Uizueyor EtpvnetAQAYTJYHGV0977-78-50 05:52:009.5[facility] CicajlfRZNSVPUYWB2132-07-60 05:52:0078.2[facility] TcwptpkPXATHCAOGS6617-68-39 05:52:0015.4[facility] [employer] DGQNVUZWZY2324-55-21 05:52:005.7[facility] RawwyloBDKYVKQZTZ0746-65-01 05:52:000.3 [facility] VajixftXFUIEBDWGL7639-80-09 05:52:000.4[facility] HermannHEMATOLOGY 2020-02-27 05:52:0014.9[facility] OhaqxvkJRLVTJOMST8157-14-95 05:52:002.9[facility] LbgnviyOUHVIPAUZV8504-90-42 05:52:001.1[facility] DdbqzupYAQRPOXNPC0064-93-17 05:52:000.1[facility] LkapjgrAMSBEFZBOO0598-73-38 05:52:000.1[facility] [employer] OLZAFFMUXH1238-80-79 05:52:001+ *ABN*(02/27/20 12:52 AM)[facility] [employer] PARATHYROID UIFWHXG6992-89-77 05:52:001.22[facility] HermannPARATHYROID PROFILE 2020-02-27 05:52:001.20[facility] HermannCHEM WEKSE9901-48-93 06:07:002.1[facility] HermannCHEM FFYOJ6129-14-45 06:07:06485Dbospyyy HermannCHEM DCGCJ0063-70-52 06:07:0014[facility] HermannCHEM VHCKW1891-03-87 06:07:000.74[facility] HermannCHEM JIRJL1395-73-95 06:07:01382Vtfkivws HermannCHEM HHVJG3530-99-71 06:07:004.3 [facility] HermannCHEM APJGI6796-11-49 06:07:34133Bokujehb HermannCHEM PANEL 2020-02-26 06:07:0023[facility] HermannCHEM CLZUW6546-73-47 06:07:008.7[facility] HermannCHEM CCBFI8245-30-62 06:07:0010.3[facility] HermannCHEM SRKNS6265-53-32 06:07:0080[facility] HermannCHEM WKYZL6251-34-79 06:07:002.7[facility] [employer] QXRQDLZKDV9300-38-74 06:07:0084.4[facility] ZtdgrueFXHXMYSLKS1944-77-06 06:07:00 10.8[facility] HypkpqiILZNTOANSY0369-68-62 06:07:004.4[facility] HermannHEMATOLOGY 2020-02-26 06:07:000.1[facility] PbfkmydGXUFTNLRLT0650-76-61 06:07:000.3[facility] CviwavlLVCYBCGDYF0976-28-66 06:07:0014.3[facility] OmnfbwaUUFAZLDMRZ2133-27-36 06:07:001.8[facility] LuqckgvFEROJOWNNT0164-61-17 06:07:000.7[facility] UQMCDNTUBA3447-95-78 06:07:001+ *ABN*(02/26/20 1:07 AM)[facility] HermannHEMATOLOGY 2020-02-26 06:07:0016.9[facility] BakcjdlIMREXIBNNW2062-38-42 06:07:003.72[facility] ZjmaywgIOCPCQFCBK0304-18-69 06:07:009.0[facility] HrmpqnySYKFOBHUJU2418-46-46 06:07:0029.3[facility] NvrprrwUXKXFGWDSP5410-28-36 06:07:0078.8[facility] [employer] QIJSRVIBSZ5342-60-76 06:07:00 Test Item Value Reference Range Interpretation Comments MCH (test code = MCH) 24.1 pg 27.0-31.0 [facility] DsxueppRPPEJSBJIC7963-11-81 06:07:0030.6[facility] HermannHEMATOLOGY 2020-02-26 06:07:0019.6[facility] EchljzhDIQLHOXEXZ4622-28-98 06:07:0098[facility] WquuvqaQDWSISJDQA2270-22-09 06:07:0010.1[facility] HermannPARATHYROID PROFILE 2020-02-26 06:07:001.18[facility] HermannPARATHYROID TEMDZQZ0557-90-00 06:07:00 1.17[facility] HermannCHEM JOPMU0300-55-43 08:30:28825Ilfozrts HermannCHEM PANEL 2020-02-25 08:30:0016[facility] HermannCHEM HWGAS3319-83-42 08:30:000.75[facility] HermannCHEM UZLOK4812-77-50 08:30:26282Dlbxkrze HermannCHEM XEBIG1169-67-95 08:30:004.1[facility] HermannCHEM YFHJK4208-44-32 08:30:54850Xunokzes HermannCHEM ZRJTD8881-38-17 08:30:0024[facility] HermannCHEM SMSSF0758-21-45 08:30:009.0 [facility] HermannCHEM LSWNZ7627-80-22 08:30:0012.1[facility] HermannCHEM PANEL 2020-02-25 08:30:0080[facility] HermannCHEM IBOOU3190-73-11 08:30:001.9[facility] HermannCHEM LXJRE9227-69-92 08:30:002.6[facility] WmzsyrcYNIQSAHHLK4249-05-40 08:30:79976Prjtgdzh AgmqstrONLUWDPZQX7585-63-04 08:30:0084.7[facility] SMOOQMXVXQ7801-30-21 08:30:0010.5[facility] QazlncwHZDRGTHAKN1793-34-59 08:30:00 4.5[facility] NwzhfeqDZCVVQYRAL0364-46-58 08:30:000.1[facility] HermannHEMATOLOGY 2020-02-25 08:30:000.2[facility] JrmnvzhFMJLCJOBJD2384-79-12 08:30:0015.2[facility] WrgilvjBOXHMVXGXG4538-39-91 08:30:001.9[facility] ShctoycHNPNFTOPSU0884-10-55 08:30:000.8[facility] FfawjwwNCDTRNCAPJ0157-47-25 08:30:001+ *ABN*(02/25/20 3:30 AM)[facility] DpywuybPXCQZCHZCZ2860-26-14 08:30:0017.9[facility] HermannHEMATOLOGY 2020-02-25 08:30:003.96[facility] TbssmllJFXCTMFIYQ1730-86-50 08:30:009.6[facility] GzrpmjxQFPIFHDHEW6746-56-23 08:30:0031.0[facility] MwypkaqRVUXMHCKMB9537-60-84 08:30:0078.3[facility] EiudvawWSKVZLDOZQ0474-26-26 08:30:00 Test Item Value Reference Range Interpretation Comments MCH (test code = MCH) 24.3 pg 27.0-31.0 [facility] VhkhqqeVQTUUUZLAD3827-97-21 08:30:0031.0[facility] HermannHEMATOLOGY 2020-02-25 08:30:0019.5[facility] AzaktxrJFGXYJQEGE0391-94-37 08:30:0094[facility] GmquumgEMNXZLXNAQ2687-89-12 08:30:009.6[facility] HermannPARATHYROID PROFILE 2020-02-25 08:30:001.17[facility] HermannPARATHYROID IYXOJVF7733-13-69 08:30:00 1.17[facility] OiwwckcCREITYRECR3882-11-22 21:43:00Negative 5(02/24/20 4:43 PM) [facility] BywkshsLBDGYHFVND6567-77-67 21:43:00 Test Item Value Reference Range Interpretation Comments Pat Od Value (test code = Pat Od 0.064 1 Value) [facility] EangisyKBIDZUYXDO9818-42-99 21:43:00 Test Item Value Reference Range Interpretation Comments Pos CO Value (test code = Pos CO 0.400 1 Value) [facility] UmeksesMDKQLVVHGB8062-94-50 06:06:000.1[facility] HermannHEMATOLOGY 2020-02-23 06:25:73115Fctqumiy HermannCARDIAC FZWBSYW9949-61-41 15:43:0073 [facility] CnooufkTNSYOXVSXH1525-44-68 15:43:001+ *ABN*(02/22/20 10:43 AM)[facility] TfywnnmZFLHKVNHDA8121-13-41 15:43:001+ (02/22/20 10:43 AM)[facility] [employer] NJKBHROPMX8777-76-48 15:43:000.2[facility] PjxhhykTSHSGCPRGG3813-64-24 15:43:000.2 [facility] HermannCHEM SKIDX6788-75-03 08:57:001.7[facility] HermannHEMATOLOGY 2020-02-22 08:57:000.1[facility] HermannCHEM LRAVR0956-90-21 04:33:003.8[facility] HermannCEFTRIAXONE:SUSC:PT:ISOLATE:ORDQN:PFU5591-90-74 04:08:00Enterobacter cloacaeMemorial HermannURINE AND LCGAF7810-20-01 02:52:00Light Yellow *NA*(02/21/20 9:52 PM)[facility]annUR[facility] AND CVTYM2174-69-16 02:52:00Slight *ABN*(02/21/20 9:52 PM)[facility]ann[facility] AND JVVXX1784-42-14 02:52:00 Test Item Value Reference Range Interpretation Comments UA Spec Grav (test code = UA Spec 1.015 1 Grav) [facility] AND ZPNGZ0237-23-57 02:52:00 Test Item Value Reference Range Interpretation Comments UA pH (test code = UA pH) 5.0 1 5.0-8.0 [facility] XVGLH8206-29-76 02:52:00Negative *NA*(02/21/20 9:52 PM) [facility] YGHDI0304-07-50 02:52:00Negative (02/21/20 9:52 PM) [facility] EIUYP0641-10-32 02:52:00<1.0[facility] AND OCFGS0127-68-18 02:52:00Positive *ABN*(02/21/20 9:52 PM)[facility] AND KNSUT1355-68-31 02:52:00Trace *ABN*(02/21/20 9:52 PM)[facility] AND NOLFU4596-22-34 02:52:0016[facility]annUR[facility] AND CODPD9978-58-40 02:52:00 2[facility]annUR[facility] AND VGZBO5601-07-07 02:52:003[facility] HermannCHEM PANEL 2020-02-22 00:49:002.9[facility] ZzngpjzJJUASFFTIY6911-16-95 08:21:65720Hqyciybp VdlrptiQKKZOXDJSK2012-69-13 08:21:00 Test Item Value Reference Range Interpretation Comments PT (test code = PT) 14.2 s 12.0-14.7 [facility] MzrmiowIEHMPSGOCQ0682-31-41 08:21:00 Test Item Value Reference Range Interpretation Comments INR (test code = INR) 1.10 1 0.85-1.17 [facility] FerpqjlVRABHNQGTS1684-62-31 08:21:00 Test Item Value Reference Range Interpretation Comments PTT (test code = PTT) 43.0 s 22.9-35.8 [facility] WboairrPYTOGMZYON9561-92-57 08:21:69415Tbnlbpha HermannBLOOD BANK GYQYTWI3061-76-80 14:31:00Negative (02/19/20 9:31 AM)[facility] HermannCHEM PANEL 2020-02-19 14:22:96207Ibmihcpx HermannCHEM REUOY0198-40-42 14:22:0015Mem[facility] HermannCHEM LMFIY6918-59-84 14:22:000.67[facility] HermannCHEM SIKSW7760-16-03 14:22:09362Urvgfmki HermannCHEM JBUDQ7702-31-05 14:22:003.6[facility] HermannCHEM CYVEX0675-83-32 14:22:84162Hctykxwn HermannCHEM JRWMQ2286-50-42 14:22:0029 [facility] AllianceannCHEM IJHHE3464-38-49 14:22:008.4[facility] HermannCHEM PANEL 2020-02-19 14:22:008.6[facility] HermannCHEM UPNIR2606-89-94 14:22:0087[facility] HermannCHEM YGRNG8787-73-28 14:22:001.8[facility] HermannCHEM FQBOX6107-47-62 14:22:002.5[facility] IwrhainSTIWNNBCXU6019-30-23 14:22:00 Test Item Value Reference Range Interpretation Comments PT (test code = PT) 14.2 s 12.0-14.7 [facility]EakkywrATVHCDXDVZ0173-31-78 14:22:00 Test Item Value Reference Range Interpretation Comments INR (test code = INR) 1.10 1 0.85-1.17 [facility]viewYeuoxcfJBARFITCBV5551-85-07 14:22:00 Test Item Value Reference Range Interpretation Comments PTT (test code = PTT) 37.8 s 22.9-35.8 [facility]viewTtjqdruTKQIKAVYAX3297-88-60 14:22:45367Ilpehgmt HermannHEMATOLOGY 2020-02-19 14:22:000.96[facility]EiprvusKUWBUHRIOR9343-75-85 14:22:00 Test Item Value Reference Range Interpretation Comments Thrombin Time (test code = Thrombin 25.6 s 15.0-21.2 Time) [facility]viewVynogtwSGRNOAPHGI7774-81-02 14:22:75531Kfmqfeuu HermannHEMATOLOGY 2020-02-19 14:22:00 Test Item Value Reference Range Interpretation Comments PT (test code = PT) 14.4 s 12.0-14.7 [facility]viewZybafqfBBNLHIZKNB1848-06-63 14:22:00 Test Item Value Reference Range Interpretation Comments INR (test code = INR) 1.11 1 0.85-1.17 [facility]viewZkldkfdCHHBPYXXIZ2231-16-12 14:22:00 Test Item Value Reference Range Interpretation Comments PTT (test code = PTT) 37.1 s 22.9-35.8 [facility]viewPmqswqfPPXEKOJJDT8232-08-63 14:22:0018.9[facility] HermannHEMATOLOGY 2020-02-19 14:22:004.69[facility] XxekcdeIHLRRFKORK5651-64-15 14:22:0011.2[facility] QorliokQQOQDZFZRX0687-23-89 14:22:0037.1[facility] QbsqurzSZRCMBAGRI1304-73-88 14:22:0079.1[facility] JxrtqyhOCGIPUZDBD6068-24-26 14:22:00 Test Item Value Reference Range Interpretation Comments MCH (test code = MCH) 23.8 pg 27.0-31.0 [facility] WavgjgiIDDYWZOHSU0368-54-58 14:22:0030.1[facility] HermannHEMATOLOGY 2020-02-19 14:22:0018.7[facility] TbsdpisMSYAXKBCAM6224-25-58 14:22:80312Tjapfywt QvrddwjWZGJSFFKPF2265-74-92 14:22:009.7[facility] RreddcpZRZONNSRFN1851-06-29 14:22:0061.0[facility] ZejdcobDKITXOGPCL6497-60-13 14:22:0030.5[facility] [employer] PWSWDSGBMP4424-06-45 14:22:007.1[facility] LkvichyFIQAWYWEGY8505-87-02 14:22:000.7 [facility] WhragrsQYLCDVBGZN7092-78-03 14:22:000.7[facility] HermannHEMATOLOGY 2020-02-19 14:22:0011.5[facility] QsymfupPOANVPTNHQ1426-80-86 14:22:005.8[facility] ZbphyuuRDKRQZZVJR4945-32-51 14:22:001.3[facility] XkvlyccVWIUSWOTIA6177-35-54 14:22:000.1[facility] UpdzlwxCZRNKPIQJW0178-18-78 14:22:000.1[facility] PARATHYROID DIYZFRR6545-54-10 14:22:001.11[facility] HermannPARATHYROID PROFILE 2020-02-19 14:22:001.12[facility] HermannCHEM MRIDI0417-33-81 09:08:003.5[facility] HermannCHEM HEOMK6306-44-46 09:08:001.6[facility] HermannCHEM YZVOA8142-01-31 09:08:93985Vrqlulvl HermannCHEM WLZOB6440-52-76 09:08:0012[facility] HermannCHEM TGEGT6676-65-04 09:08:000.67[facility] HermannCHEM YHZYH1971-97-28 09:08:68903 [facility] HermannCHEM GUZFZ2498-06-95 09:08:003.3[facility] HermannCHEM PANEL 2020-02-18 09:08:24521Fhselzfq HermannCHEM OABAB5723-64-38 09:08:0028[facility] HermannCHEM GDMJK7964-24-08 09:08:008.7[facility] HermannCHEM CFWIQ7318-98-42 09:08:0010.3[facility] HermannCHEM LOQAW1293-04-99 09:08:0087[facility] [employer] KKCGMJJKBS9654-76-81 09:08:00 Test Item Value Reference Range Interpretation Comments PT (test code = PT) 17.5 s 12.0-14.7 [facility] MugrsetMHRMFZBQYW8196-73-46 09:08:00 Test Item Value Reference Range Interpretation Comments INR (test code = INR) 1.42 1 0.85-1.17 [facility] YobofrjKDEOTLOIMV0772-81-70 09:08:00 Test Item Value Reference Range Interpretation Comments PTT (test code = PTT) 82.9 s 22.9-35.8 [facility] MkfqekgSRSPXVGTZY5284-20-60 09:08:000.68[facility] HermannHEMATOLOGY 2020-02-18 09:08:10494Ertxerrs JufncelDCTSFSGTZT1433-05-67 09:08:0016.3[facility] RovjregOATKDTAVXJ7021-81-94 09:08:004.72[facility] PemqsjpRRHRIQRBIW4801-38-92 09:08:0011.4[facility] IfzwiuvXYIPHVSRUE7740-99-41 09:08:0037.0[facility] [employer] IZMLNNGWOG4188-23-26 09:08:0078.4[facility] UpograuQWGGGDEFFM1333-89-83 09:08:00 Test Item Value Reference Range Interpretation Comments MCH (test code = MCH) 24.1 pg 27.0-31.0 [facility] UrwozpiKIDCVMRJBO1800-20-20 09:08:0030.7[facility] HermannHEMATOLOGY 2020-02-18 09:08:0018.3[facility] KeainktWJCXFCVRWE9071-51-63 09:08:05319Kqjlxdoc XdactuqLIFBAUQQVK7482-24-71 09:08:009.7[facility] RmwetlxLHKSAAWHXT3024-61-00 09:08:0066.2[facility] XgauxgsYGULQALCGH6523-06-64 09:08:0023.2[facility] RJJWUHUDXP4876-25-68 09:08:009.3[facility] BuazjznLOXAMDGATP3164-18-67 09:08:000.8 [facility] KvcebvaQVDUFKSNFI3547-72-13 09:08:000.5[facility] HermannHEMATOLOGY 2020-02-18 09:08:0010.8[facility] JidtodzTBYOKTLFGG6344-53-28 09:08:003.8[facility] BmqduawDTKVHNOPTC1067-45-77 09:08:001.5[facility] YlgahitWRGNNVFUAV0281-28-07 09:08:000.1[facility] DefipvcSVFTGRHMMJ7116-11-41 09:08:000.1[facility] BZAODBQVIP0509-58-67 09:08:001+ *ABN*(02/18/20 4:08 AM)[facility] [employer] PARATHYROID WZWBAAH7649-14-13 09:08:001.13[facility] HermannPARATHYROID PROFILE 2020-02-18 09:08:001.12[facility] LrrualjVACIYJJQHF4035-36-46 17:25:00Not Detected (02/17/20 12:25 PM)[facility]BL[facility] BANK XXTYPON5680-41-29 17:10:00Result Note 4(02/17/20 12:10 PM)[facility] UDYKQMP1142-22-81 17:10:00 Positive (02/17/20 12:10 PM)[facility] HermannCARDIAC ULDXPOK5724-88-72 17:10:0025 [facility] HermannCHEM FPOEE9874-86-38 17:10:003.0[facility] HermannCHEM PANEL 2020-02-17 17:10:89296Eqduxpos HermannCHEM JNVHM8183-65-59 17:10:0011[facility] HermannCHEM RYOUH1993-88-80 17:10:000.68[facility]annCHEM PZLKQ7735-96-93 17:10:31107Punjpwct HermannCHEM NUDPH4553-67-01 17:10:003.4[facility]annCHEM AVEYI9320-73-04 17:10:35810Inpfstgd HermannCHEM FTAPX9105-28-00 17:10:0031 [facility]annCHE[facility] MFGGO5565-09-22 17:10:008.4[facility]annCHEM PANEL 2020-02-17 17:10:006.4[facility]annCHEM XCCSV2862-78-38 17:10:0087[facility]annCHEM NLQGK0756-24-18 17:10:00<0.05[facility]annCHEM ZOOLV7881-30-30 17:10:001.6[facility] UkzmazwEGJVDVNZLO4984-35-78 17:10:0016.0[facility] [employer] WENDXCLPMV0761-55-05 17:10:005.23[facility] AheccjsSHXMZGAJUM8953-12-65 17:10:00 12.7[facility] EiuibtgWMDOBDZGOP0742-24-61 17:10:0041.4[facility]annHEMATOLOGY 2020-02-17 17:10:0079.1[facility] EywjjraJXSESLRPUC6088-24-93 17:10:00 Test Item Value Reference Range Interpretation Comments MCH (test code = MCH) 24.4 pg 27.0-31.0 [facility] LblxycaFDPJUGXYEW5280-35-41 17:10:0030.8[facility]annHEMATOLOGY 2020-02-17 17:10:0018.3[facility] VyskhvvPTUKIMCING4658-71-07 17:10:65381Bmagavrf OqzbcibZJKQWERUYP0465-97-31 17:10:0010.1[facility] RvmuxqyGOJMWZNVYK6814-60-76 17:10:0084.7[facility] YmjmmkmGRROMSSBIT9863-51-68 17:10:009.3[facility] [employer] ZRJZIGTVKC6344-34-97 17:10:005.0[facility] KmrzccdYITJTBSWJP5060-90-50 17:10:000.5 [facility] QcjavmdPSPMPPQNFK4428-10-00 17:10:000.5[facility]annHEMATOLOGY 2020-02-17 17:10:0013.6[facility] AesvswjZSNLJGNKDQ0724-39-45 17:10:001.5[facility] AhgerpoTHRJGHGBBR5315-85-20 17:10:000.8[facility] RcblrffINZRVPNCGQ9364-04-52 17:10:000.1[facility] KsdvbwkTHCYBW3041-79-45 17:10:61484Uipkqlpd HermannLIPIDS 2020-02-17 17:10:57075Tnbanjyo PpqyywcOFGNYZ2448-50-41 17:10:0054[facility] PmvadohYHJNQH3094-77-28 17:10:00 Test Item Value Reference Range Interpretation Comments CHD Risk (test code = CHD Risk) 2.85 1 3.90-5.80 [facility] SfyhjvnFTJOBM2328-07-24 17:10:0069[facility] IldellnLGYKBA2233-70-38 17:10:00 Test Item Value Reference Range Interpretation Comments VLDL (test code = VLDL) 31 1 [facility] SPYVM7165-85-84 03:29:00Yellow *NA*(02/15/20 10:29 PM) [facility] KMYJF5952-74-59 03:29:00Marked *ABN*(02/15/20 10:29 PM) [facility] EVDRC4335-51-60 03:29:00 Test Item Value Reference Range Interpretation Comments UA Spec Grav (test code = UA Spec 1.015 1 Grav) [facility] NMFMV4201-56-69 03:29:00 Test Item Value Reference Range Interpretation Comments UA pH (test code = UA pH) 7.0 1 5.0-8.0 [facility] YNTDS9339-97-44 03:29:00Negative *NA*(02/15/20 10:29 PM)[facility] FGSPZ7256-83-18 03:29:00Negative (02/15/20 10:29 PM) [facility] KWTTB5825-42-47 03:29:00<1.0[facility] XURCM6096-63-76 03:29:00Negative (02/15/20 10:29 PM)[facility] RCDQI8959-47-17 03:29:00Negative (02/15/20 10:29 PM)[facility] VNZLB8141-48-82 03:29:001[facility] SMVFB4740-83-90 03:29:001 [facility] DQMSE1771-90-63 03:29:003[facility]annCHEM PANEL 2020-02-16 02:49:005.8[facility]annCHEM JWGLX7528-61-22 02:49:002.4[facility]annCHEM GSGSC1442-27-94 02:49:0026[facility]annCHEM SLUUI2134-64-36 02:49:0016[facility]annCHEM HWVIU9378-83-38 02:49:83294Ltqdgpau HermannCHEM CHAKL8996-59-23 02:49:000.3[facility]annCHEM HQBBD6650-50-32 02:49:00 Test Item Value Reference Range Interpretation Comments B/C Ratio (test code = B/C Ratio) 25 1 6-25 [facility]annCHE[facility] NIZYU4360-43-92 02:49:003.4[facility]annCHEM PANEL 2020-02-16 02:49:00 Test Item Value Reference Range Interpretation Comments A/G Ratio (test code = A/G Ratio) 0.7 1 0.7-1.6 [facility] HermannPOC-Glucose axoru4384-10-16 13:34:00 Test Item Value Reference Range Interpretation Comments POC-Glucose Meter (test 101 mg/dL 70-110 : TE STED AT [facility] code = 1538) [address] [facility], [address] 30: Kennel Manager/Techni ras ID = [id number] for LENNOX OSBORN Lab Interpretation (test Normal code = 47919-4) [facility] VRCYO8116-94-86 13:34:00 Test Item Value Reference Range Interpretation Comments POC-GLUCOSE METER 101 mg/dL 70-110 : TESTED A T [facility] [address] (BEAKER) (test code = [facility], 1538) [address]: Kennel Manager/Techni ras ID = [id number] for LENNOX RAMOS Urine raystst8910-29-46 10:36:00 Test Item Value Reference Range Interpretation Comments Result (test code = See comment 6463-4) ZIA (test code = >100,000 col/mL enteric ZIA) organisms of >3 types. No further workup performed. Multiple organisms suggestive of colonization or contamination. Repeat collection recommended. [facility] FVSDW2641-95-17 08:50:00 Test Item Value Reference Range Interpretation Comments POC-GLUCOSE METER 100 mg/dL 70-110 : TESTED A T [facility] 6720 (BEAKER) (test code = KLEVER Rogers [facility], 1538) [address]: Kennel Manager/Techni ras ID = [id number] for LENNOX RAMOS POCT-GLUCOSE [id number] 06:33:00 Test Item Value Reference Range Interpretation Comments POC-GLUCOSE METER 184 mg/dL 70-110 H : TESTED A T [facility] 6720 (BEAKER) (test code = [facility] Sue [facility], 1538) [address]: Kennel Manager/Techni ras ID = [id number] for DO RACHEL REDD CBC with platelet count + automated [id number] 06:31:00 Test Item Value Reference Range Interpretation [...] 450 K/CU MM MPV (test code = 90124-0) 12.4 fL 9.4-12.3 H nRBC (test code [...] 2801) Lab Interpretation (test code = Abnormal 69092-9) [facility] W/PLT COUNT & AUTO [id number] 06:31:00 Test Item Value Reference Range Interpretation [...] PERCENT (BEAKER) (test code = 2801) POCT-GLUCOSE [id number] 18:19:00 Test Item Value Reference Range Interpretation Comments POC-GLUCOSE METER 148 mg/dL 70-110 H : TESTED A T [facility] 6720 (BEAKER) (test code = KLEVER [place], 1538) [address]: Kennel Manager/Techni ras ID = [id number] for HU NT, MAGGIE Urinalysis w/Microscopic + Reflex to [id number] 15:46:00 Test Item Value Reference Range Interpretation Comments Color, UA (test code = Yellow 5778-6) Clarity, UA (test code = Hazy 5767-9) Specific [place], UA 1.028 1.001-1.035 (test code = 5811-5) pH, UA (test code = 6.0 5.0-8.0 5803-2) Protein, UA (test code = 30 mg/dL Negative A 57185-4) Glucose, UA (test code = Negative Negative 365) Ketones, UA (test code = Negative Negative 2514-8) Bilirubin, UA (test code Negative Negative = 08831-6) Blood, UA (test code = Negative Negative 97094-6) Nitrite, UA (test code = Negative Negative 5802-4) Leukocytes, UA (test code Moderate Negative A = 5799-2) Urobilinogen, UA (test 0.2 mg/dL 0.2-1 code = 25627-7) RBC, UA (test code = 2 /HPF 15282-3) WBC, UA (test code = 28 /HPF 5821-4) Mucus (test code = Occasional 8247-9) Squam Epithel, UA (test 1 /HPF code = 21880-9) Hyaline Casts, UA (test 1 /LPF code = 17134-5) Ca Oxalate Jagruti, UA (test Occasional code = 46896-5) Specimen Source (test code = 2795) ZIA (test code = ZIA) Kennel Manager ID - [auto]Kennel Manager ID - [id number] Lab Interpretation (test Abnormal code = 02403-2) [facility] UR[facility] [id number] 15:46:00 Test Item Value Reference Range Interpretation [...] = 518) SOURCE(BEAKER) (test code = 2795) Kennel Manager ID - [auto]Kennel Manager ID - hankPOCT-GLUCOSE [id number] 12:47:00 Test Item Value Reference Range Interpretation Comments POC-GLUCOSE METER 128 mg/dL 70-110 H : TESTED A T [facility] 6720 (BEAKER) (test code = [facility], 1538) [address]: Kennel Manager/Techni ras ID = [id number] for Elizabeth Valladares POCT-GLUCOSE [id number] 12:34:00 Test Item Value Reference Range Interpretation Comments POC-GLUCOSE METER 131 mg/dL 70-110 H : TESTED A T [facility] 6720 (BEAKER) (test code = [facility], 1538) [address]: Kennel Manager/Techni ras ID = [id number] for RO DGERS, [place], ESOPH, SWALLOW FUNCTION, WITH CINE OR [id number] 12:20:00Reason for exam:->dysphagiaFINAL REPORT EXAMINATION: Modified barium [...] MDReport Verified Date/Time: 02/14/2020 12:20:00 Reading Location: [address] Reading Room [place] esoph swallow funct with cine gnvac9151-15-48 12:20:00Interface, External Ris In - 02/14/2020 12:22 [...] MDReport Verified Date/Time: 02/14/2020 12:20:00 Reading Location: [address] Transitional Reading Room [facility] W/PLT COUNT & AUTO [id number] 04:50:00 Test Item Value Reference Range Interpretation [...] PERCENT (BEAKER) (test code = 2801) POCT-GLUCOSE [id number] 01:00:00 Test Item Value Reference Range Interpretation Comments POC-GLUCOSE METER 261 mg/dL 70-110 H : TESTED A T [facility] 6720 (BEAKER) (test code = [facility], 1538) [address]: Kennel Manager/Techni ras ID = [id number] for DO RACHEL REDD POCT-GLUCOSE [id number] 17:38:00 Test Item Value Reference Range Interpretation Comments POC-GLUCOSE METER 396 mg/dL 70-110 H : TESTED A T [facility] 6720 (BEAKER) (test code [facility], = 1538) [address]: Kennel Manager/Techni ras ID = [id number] for LEILA LEDESMA RAD, CHEST, 2 [id number] 12:51:00Reason for exam:->evaluate position of left chest [...] [place]wood Verified Date/Time: 02/13/2020 12:51:24 Reading Location: [facility] Radiology Reading Room XR chest 2 hmths7063-99-59 12:51:00Interface, External Ris In - 02/13/2020 12:53 [...] Greenwood MDReport Verified Date/Time: 02/13/2020 12:51:24Reading Location: [facility] Radiology Reading Room [facility] [id number] 08:20:00 Test Item Value Reference Range Interpretation Comments POC-GLUCOSE METER 180 mg/dL 70-110 H : Notified RN/MD: TESTED (KATHLEEN) (test code AT [address] = 1538) [place] [address]: Kennel Manager/Techni ras ID = [id number] for TSEG GAI, TSIGHEREDA POCT-GLUCOSE [id number] 23:11:00 Test Item Value Reference Range Interpretation Comments POC-GLUCOSE METER 254 mg/dL 70-110 H : Notified RN/MD: (KATHLEEN) (test code = TESTED AT [place] [address] 1538) [place] [id number]: Kennel Manager/Techni ras ID = [id number] for LATHBRIDGE, MARIA ICE POCT-GLUCOSE [id number] 17:32:00 Test Item Value Reference Range Interpretation Comments POC-GLUCOSE METER 386 mg/dL 70-110 H : Notified RN/MD: TESTED (KATHLEEN) (test code AT [address] = 1538) [place] [address]: Kennel Manager/Techni ras ID = [id number] for TSEG GAI, TSIGHEREDA RAD, CHEST, 1 VIEW, NON [id number] 14:59:00Reason for exam:->concern for aspirationShould this be [...] Maxwell Verified Date/Time: 02/12/2020 14:59:34 Reading Location: [address] Body Reading Room XR chest 1 view portable / lymjvbv9475-74-03 14:59:00Interface, External Ris In - 02/12/2020 3:01 [...] Maxwell Verified Date/Time: 02/12/2020 14:59:34 Reading Location: [facility] C013Y CT Body Reading Room Electronicallysigned by: MEHNAZ MAXWELL MD on 02/12/2020 02:59 PMCH[facility]TS/Free T4 If Ssdqenqfm1761-30-42 13:50:00 Test Item Value Reference Range Interpretation Comments TSH (test code = 52627-9) 1.158 0.350- 4.940 uIU/mL Lab Interpretation (test code = Normal 99989-1) [facility] T4 IF VSOYGLYBK8055-07-90 13:50:00 Test Item Value Reference Range Interpretation Comments THYROID STIMULATING HORMONE 1.158 uIU/mL 0.350-4.940 (BEAKER) (test code = 772) Comprehensive metabolic wenkn4423-44-35 12:44:00 Test Item Value Reference Range Interpretation Comments Protein, Total (test 4.8 6.0- 8.3 gm/dL L Speci men slightly code = 2885-2) hemolyzed Albumin (test code = 2.9 g/dL 3.5-5 L Specime n slightly 24294-4) hemolyzed Alkaline Phosphatase 174 U/L 40-150 H (test code = 6768-6) Total Bilirubin (test 0.3 mg/dL 0.2-1.2 Specim en slightly code = 1975-2) hemolyzed Sodium (test code = 140 meq/L 265-360 1277-2) Potassium (test code = 3.6 meq/L 3.5-5.1 [...] (test code = 8.2 mg/dL 8.4-10.2 L 62959-6) AST (test code = 32 U/L 5-34 Specimen sl ightly 1920-8) hemolyzed ALT (test code = 31 U/L 6-55 Specimen sl ightly 1742-6) hemolyzed EGFR (test code = 127 mL/min/1.73 [place] [address]-5) NOT ACCURATE CREATININE CLEARANCE IN PREDICTING GLOMERULAR FILTRATION RATE . ESTIMATED GFR I S NOT APPLICABLE FOR DIALYSIS PATIEN TS. Lab Interpretation Abnormal (test code = 31862-3) [facility] HospitalCOMPREHENSIVE METABOLIC [id number] 12:44:00 Test Item Value Reference Range Interpretation [...] 29-200 Lab Interpretation (test code = Normal 20862-5) [facility] HospitalLactate dehydrogenase (LDH)2020-02-12 12:29:00 Test Item Value Reference Range Interpretation Comments LDH (test code = 2532-0) 401 U/L 125-220 H Spe cimen slightly hemolyzed Lab Interpretation (test Abnormal code = 82985-2) [facility] HospitalLACTATE DEHYDROGENASE (LDH)2020-02-12 12:29:00 Test Item Value Reference Range Interpretation Comments LACTATE DEHYDROGENASE 401 U/L 125-220 H Specim en slightly (BEAKER) (test code = hemoly zed 635) CREATINE KINASE (CK)2020-02-12 12:29:00 Test Item Value Reference Range Interpretation Comments CREATINE KINASE TOTAL (BEAKER) (test 47 U/L 29-200 code = 380) Vitamin [id number] 12:28:00 Test Item Value Reference Range Interpretation Comments Vitamin B12 (test code = 2132-9) 486 pg/mL 213-816 Lab Interpretation (test code = Normal 60008-0) [facility] HospitalVITAMIN [id number] 12:28:00 Test Item Value Reference Range Interpretation Comments VITAMIN B12 (BEAKER) (test code = 486 pg/mL 213-816 774) POCT-GLUCOSE [id number] 12:20:00 Test Item Value Reference Range Interpretation Comments POC-GLUCOSE METER 147 mg/dL 70-110 H : TESTED A T [facility] 6720 (BEAKER) ([facility] = 1538[facility] [address]: Kennel Manager/Techni ras ID = [id number] for LEILA LEDESMA SARS-CoV2/RT-PCR (Asymptomatic ONLY)2020-02-12 12:08:00 Test Item Value Reference Range Interpretation Comments SARS-COV2/RT-PCR Negative Not Detected, (test code = Negative, See 89197-0) external report for linked test SARS-COV-2 [facility] PERFORMING LAB (test code = 04974-0) ZIA (test code = Negative result for [...] of the Act. Fact Sheet for Healthcare Providers:https://www.Moven/sites/default/f humble/product/documents/F act_Sheet_HC_Providers_L vwn_XEDH-BrB-9.pdf Fact Sheet for Healthcare Patients:https://www.Fair Observer.Deemelo/sites/default/fi les/product/documents/Fa ct_Sheet_Patients_Lyra_S ARS-CoV-2.pdf Performing Laboratory:[facility] [place] [address] [facility] ([facility])2020-02-12 12:08:00 Test Item Value Reference Range Interpretation Comments SARS-COV2/RT-PCR (test Negative Not Detected, Negative, code = 8915389) See external report for linked test SARS-COV-2 PERFORMING LAB [facility] (test code = 1015521) Negative result for this test determines that [...] 564(g) of the Act.Fact Sheet for Healthcare Providers:https://www.Jabong.com.com/sites/default/files/product/documents/Fact_Shee e_ZG_Unxfqxacm_Iwdt_QCIB-IqH-7.pdfFact Sheet for Healthcare Patients:https://www.Jabong.com.com/sites/default/files/product/ documents/Pfga_Jebaz_Wjfurnzl_Qvxj_TGFC-AhA-8.pdfPerforming Laboratory:[facility], [place] [address]AJYZ-RHFEXEX METER 2020-02-12 09:52:00 Test Item Value Reference Range Interpretation Comments POC-GLUCOSE METER 74 mg/dL 70-110 : TESTED A T [facility] 6720 (BEAKER) (test code [place], = 1538) [address]: Kennel Manager/Techni ras ID = [id number] for LEILA LEDESMA CBC W/PLT COUNT & AUTO TOANSKWBYTRN0374-23-15 09:04:00 Test Item Value Reference Range Interpretation [...] 0-1 PERCENT (BEAKER) (test code = 2801) QGIKOMEDOW2773-27-99 17:18:00Not Detected (12/20/19 12:18 PM)[facility] CARDIAC ZHXKMDQ2968-41-12 10:06:000.02[facility] HermannCHEM ASRRE6004-24-84 10:06:46713Mefaluzz HermannCHEM TYQQK1487-17-85 10:06:0010[facility] HermannCHEM OOJKQ4803-27-58 10:06:000.64[facility] HermannCHEM SJQTS9152-21-62 10:06:10682 [facility]annCHEM IVVNE4436-04-96 10:06:003.9[facility] HermannCHEM PANEL 2019-12-18 10:06:87012Plymavxb HermannCHEM JGOXA3926-79-21 10:06:0028[facility] HermannCHEM RFHCJ8535-72-82 10:06:0010.9[facility] HermannCHEM UHDLN5786-78-02 10:06:008.3[facility] HermannCHEM WHSZK2167-22-41 10:06:0089[facility] HermannCHEM ENTHF8911-13-02 10:06:002.1[facility] HermannCHEM JILKY5575-68-71 10:06:003.2 Memorial IafuevlTFCOTJWLXY2136-21-43 10:06:009.9[facility] HermannHEMATOLOGY 2019-12-18 10:06:003.09[facility] DubcxrjOXTOIIGLYF7420-73-81 10:06:009.1[facility] BziutnnJRMWADCKLZ6639-82-99 10:06:0028.9[facility] TmbvxgeBHADPLQRBI5758-57-97 10:06:0093.7[facility] UbqqhadINTIOURFMJ4307-55-82 10:06:00 Test Item Value Reference Range Interpretation Comments MCH (test code = MCH) 29.4 pg 27.0-31.0 Memorial DbyetbdAVDSGPFQWR3524-81-11 10:06:0031.4[facility] HermannHEMATOLOGY 2019-12-18 10:06:0016.7[facility] TeovbffQTPJTVFNYA7858-88-84 10:06:53275Pzjwyknm IwiwxkaFGQKMFPFGE8339-50-80 10:06:0010.2[facility] VgzgeddGHERGCKJYV0997-27-97 10:06:0066.2[facility] AtwgwpwYTJJINRUWW3458-31-17 10:06:0023.0[facility] FZHDTSDMOB9020-49-46 10:06:008.2[facility] RktaxsgDOTBFEYGZT6668-06-72 10:06:001.2 Memorial HcbgrogNECAZPKPGO3862-44-79 10:06:001.4[facility] HermannHEMATOLOGY 2019-12-18 10:06:006.5[facility] GbyfirkCGMHNXTCMT5403-99-10 10:06:002.3[facility] GdymyvzDFJDCGKYHD6217-51-76 10:06:000.8[facility] DhnngfhGGOYLLZONV8363-04-89 10:06:000.1[facility] QqokhljUXTGCGVFSR3881-15-96 10:06:000.1[facility] HermannURINE AND PUZDZ7059-74-60 10:06:00Dark Yellow *NA*(12/18/19 5:06 AM)[facility] URINE AND BRIBQ1980-81-58 10:06:00Slight *ABN*(12/18/19 5:06 AM)[facility] URINE AND VNJFY6784-84-30 10:06:00 Test Item Value Reference Range Interpretation Comments UA Spec Grav (test code = UA Spec 1.018 1 Grav) [facility]annURINE AND ZOBEA2361-51-96 10:06:00 Test Item Value Reference Range Interpretation Comments UA pH (test code = UA pH) 6.0 1 5.0-8.0 [facility] AND EABCK8486-31-87 10:06:00Negative *NA*(12/18/19 5:06 AM) [facility] AND MTLLK8079-08-30 10:06:00Negative (12/18/19 5:06 AM) [facility] AND TUNPO7126-85-07 10:06:004.0[facility] AND DQMPH8082-40-21 10:06:00Negative (12/18/19 5:06 AM)[facility] AND SPYSD7117-92-55 10:06:00Negative (12/18/19 5:06 AM)[facility] AND SUMIF3381-08-70 10:06:0010[facility]annURINE AND EYZSK7008-72-82 10:06:002 [facility] AND EREAT3015-96-99 10:06:007[facility] HermannCHEM PANEL 2019-12-17 16:05:18933Tbkxjanu HermannCHEM SZJLS7226-85-60 16:05:0011[facility] HermannCHEM RAVET9740-33-29 16:05:000.80[facility] HermannCHEM BVIGC2634-86-65 16:05:15100Nmpazzwo HermannCHEM VSKIC8761-85-51 16:05:003.4[facility] HermannCHEM JJRNY8428-90-76 16:05:65762Qsxvibwq HermannCHEM AZIRA4991-97-96 16:05:0031 [facility]annCHEM CAQMQ6873-73-57 16:05:008.2[facility] HermannCHEM PANEL 2019-12-17 16:05:007.4[facility] HermannCHEM BPVDT3452-00-00 16:05:0074[facility] HermannCHEM RYUKM5985-53-66 16:05:001.9[facility] HermannCHEM EEPUT7097-50-75 16:05:002.8[facility] LrlenytUIGTNKYZFY5525-98-58 16:05:008.9[facility] XLFTUVQKIL6361-37-27 16:05:003.03[facility] KmmkamoRSLUIDSASZ3479-54-46 16:05:00 9.3[facility] EhjnbwzNXWSWCRKAP8316-46-97 16:05:0028.4[facility] HermannHEMATOLOGY 2019-12-17 16:05:0093.8[facility] RilstlvWMUBBWNCVN2958-56-48 16:05:00 Test Item Value Reference Range Interpretation Comments MCH (test code = MCH) 30.7 pg 27.0-31.0 Memorial StmskzgOYASMEZIVN7184-72-57 16:05:0032.8[facility] HermannHEMATOLOGY 2019-12-17 16:05:0016.9[facility] XjczbpqSLRAUUVZKE5252-54-64 16:05:64718Gjjbemzr VugwsouPIFLFYCRPD0465-09-27 16:05:009.7[facility] HmdreldWZASMKIZYN2690-34-50 16:05:0071.0[facility] BbifaecGENQPHXHWT2759-56-20 16:05:0016.3[facility] YYETFUHAYK1037-54-70 16:05:006.5[facility] QwacbfzHPUIZUNKCJ5723-25-41 16:05:004.0 Memorial ZpehmabOPROTKGMSC2597-67-77 16:05:002.2[facility] HermannHEMATOLOGY 2019-12-17 16:05:006.3[facility] HalspasMROIFFKXLS8026-90-43 16:05:001.4[facility] GwfilifXVZWHPDZKG5437-16-31 16:05:000.6[facility] NsaosshQUBJORPQNP3162-45-78 16:05:000.4[facility] OzwcpgiLHDPRZGHSY4102-65-19 16:05:000.2[facility] CARDIAC DODKRSJ5359-59-84 05:24:000.03[facility] HermannCHEM NIZTH4662-04-64 05:24:41528Zhapzcdg HermannCHEM ELZUS0024-14-46 05:24:0012[facility] HermannCHEM MFYXY6886-08-83 05:24:000.59[facility] HermannCHEM EIMMJ1753-21-77 05:24:44776 [facility]annCHEM PIJTO3856-79-83 05:24:003.9[facility] HermannCHEM PANEL 2019-12-15 05:24:91037Evjhxeeo HermannCHEM CSZQC7327-70-83 05:24:0034[facility] HermannCHEM JZBOB6280-09-60 05:24:008.3[facility] HermannCHEM GUCPD7818-39-82 05:24:008.9[facility] HermannCHEM AYDKO3260-90-89 05:24:0092[facility] HermannCHEM TSGNV5031-44-17 05:24:002.1[facility] HermannCHEM MROKO7783-26-13 05:24:002.4 Memorial PjfpxzjFOSIYXHUJA9703-95-95 05:24:0011.9[facility] HermannHEMATOLOGY 2019-12-15 05:24:003.25[facility] CrywbirOPUYPTWLDG6422-81-03 05:24:009.5[facility] RwvxuetNATQVXMPMA4543-27-45 05:24:0030.4[facility] LjpuzsdZPXPVABKNZ0819-76-95 05:24:0093.5[facility] FdyvqgmAEEJZQFFCE8795-16-10 05:24:00 Test Item Value Reference Range Interpretation Comments MCH (test code = MCH) 29.3 pg 27.0-31.0 Memorial WreplbzGNYPWFENJC5814-25-39 05:24:0031.4[facility] HermannHEMATOLOGY 2019-12-15 05:24:0017.3[facility] QauimddGNXDUBKOMD8676-49-94 05:24:62227Hsbhwvlu QjdwmmoZQPCXVUZER3879-06-94 05:24:0010.2[facility] PzztxcaUGCDQYIPIX5323-28-54 05:24:0069.3[facility] JasbvxpDTVGIMVXMS8512-75-76 05:24:0018.5[facility] KZRZCHMRVX9944-11-60 05:24:007.6[facility] TuksnzxZEMWVZLGWU3563-56-16 05:24:003.8 Memorial GwlqkmmLIXBQBHBSZ5830-23-16 05:24:000.8[facility] HermannHEMATOLOGY 2019-12-15 05:24:008.3[facility] HsonjhmBIRSTCCHOH1591-76-69 05:24:002.2[facility] SqqmbewINWELCKDFR6537-20-16 05:24:000.9[facility] VeopjtkWCRITHBGHX4542-96-59 05:24:000.5[facility] FcgiyvnFWIBJBHNNB1943-29-33 05:24:000.1[facility] LGSNHNRYDL6323-45-09 11:58:00Normal (12/14/19 6:58 AM)[facility] HermannHEMATOLOGY 2019-12-14 11:58:00Normal (12/14/19 6:58 AM)[facility] HermannCHEM LVZZE9459-29-41 15:50:005.2[facility] HermannCHEM YOZSA4625-93-81 15:50:002.2[facility] HermannCHEM PCLAR2986-18-70 15:50:0022[facility] HermannCHEM MYJRR0589-42-04 15:50:0013 [facility] HermannCHEM JANJT1575-97-43 15:50:87884Sqqtmith HermannCHEM PANEL 2019-12-11 15:50:000.9[facility] HermannCHEM YBGMX4992-16-82 15:50:00 Test Item Value Reference Range Interpretation Comments B/C Ratio (test code = B/C Ratio) 25 1 6-25 [facility] HermannCHEM ATJSG5746-07-40 15:50:003.0[facility] HermannCHEM PANEL 2019-12-11 15:50:00 Test Item Value Reference Range Interpretation Comments A/G Ratio (test code = A/G Ratio) 0.7 1 0.7-1.6 [facility] HermannBODY GCUMAT3603-16-92 17:45:00Positive *ABN*(12/09/19 12:45 PM) [facility] FcdigybQSBUYRSAHL1068-60-46 16:46:00Normal (12/09/19 11:46 AM)[facility] AcrpmruRYEICWRTND4666-82-58 16:46:00Normal (12/09/19 11:46 AM)[facility] CHEM GARTD8394-60-18 05:23:004.5[facility] HermannCHEM LKZNB5129-68-74 05:23:002.5 [facility] HermannCHEM YKEHU8016-81-37 05:23:0027[facility] HermannCHEM PANEL 2019-12-07 05:23:0011[facility] HermannCHEM MNSEB0025-52-59 05:23:0082[facility] HermannCHEM HFEAU8892-99-27 05:23:000.8[facility] HermannCHEM LRJTI3565-67-46 05:23:000.3[facility] HermannCHEM DRXPK8083-11-44 05:23:000.5[facility] HermannCHEM TQOUF7252-05-70 05:23:002.0[facility] HermannCHEM OJXCN4505-66-69 05:23:00 Test Item Value Reference Range Interpretation Comments A/G Ratio (test code = A/G Ratio) 1.2 1 0.7-1.6 [facility] HermannPARATHYROID VIDZAXR0566-08-03 05:23:001.05[facility] PARATHYROID DNXTWHW3058-41-68 05:23:001.09[facility] OfdwjduIYIJLNJATN7492-68-26 05:37:00 Test Item Value Reference Range Interpretation Comments PTT (test code = PTT) 31.1 s 22.9-35.8 Memorial ZnbslcnTGMVQVLKEW3422-34-77 05:37:00 Test Item Value Reference Range Interpretation Comments PT (test code = PT) 15.3 s 12.0-14.7 [facility] KecpjjdWZGALWWZBD8507-04-11 05:37:00 Test Item Value Reference Range Interpretation Comments INR (test code = INR) 1.20 1 0.85-1.17 [facility] HermannPARATHYROID FQYPTHC3241-93-67 05:21:001.06[facility] PARATHYROID LMXIYRM4992-99-32 05:21:001.10[facility] HermannBLOOD BANK RESULTS 2019-12-05 22:53:00Product available (12/05/19 5:53 PM)[facility] PricezaannHEMATOLOGY 2019-12-05 22:43:00See Note 1(12/05/19 5:43 PM)[facility] PricezaannHEMATOLOGY 2019-12-05 22:43:001+ *ABN*(12/05/19 5:43 PM)[facility] HermannBLOOD BANK RESULTS 2019-12-05 22:21:00Product available (12/05/19 5:21 PM)[facility] HermannBLOOD BANK IZBSWQA6730-87-29 06:02:00Negative (12/05/19 1:02 AM)[facility] PricezaannBLOOD BANK TBUDLCI1656-06-12 06:02:00Result Note 5(12/05/19 1:02 AM)[facility] TTCFIBPNJP8115-47-85 06:02:00 Test Item Value Reference Range Interpretation Comments PT (test code = PT) 12.8 s 12.0-14.7 [facility] PyxmtjuEHURBYIDLN0074-20-58 06:02:00 Test Item Value Reference Range Interpretation Comments INR (test code = INR) 0.96 1 0.85-1.17 [facility] LqhnuabDQZQLAQWMI3785-74-09 06:02:00 Test Item Value Reference Range Interpretation Comments PTT (test code = PTT) 28.3 s 22.9-35.8 [facility] HermannCHEM CTEDW6067-57-70 09:52:96369Vjxmkzyt HermannCHEM PANEL 2019-12-01 09:52:0016[facility] HermannCHEM WDPED2382-87-39 09:52:000.75[facility] HermannCHEM UANIL8611-22-12 09:52:37186Kbgenurq HermannCHEM GSFXV3523-12-33 09:52:003.7[facility] HermannCHEM YOKWV7324-49-40 09:52:35766Ojletlol HermannCHEM MWBGL9969-09-40 09:52:0029[facility] HermannCHEM NBLPZ1196-23-81 09:52:008.3 [facility]CHE[facility] NSCFH4081-47-47 09:52:0010.7[facility]annCHEM PANEL 2019-12-01 09:52:0080[facility] QmulamnXNIWCHJSEL1833-85-69 09:52:0011.0[facility] PqoqcugBPESDJFJHF9714-96-08 09:52:004.45[facility] EekfkxfOBKGJVSBLD3564-20-86 09:52:0013.7[facility] YfkeflpAEEGIEBBME2333-31-25 09:52:0041.0[facility] QAWKTGRROJ7718-78-73 09:52:0092.1[facility] OsangltNARUBPNCSY9818-80-94 09:52:00 Test Item Value Reference Range Interpretation Comments MCH (test code = MCH) 30.7 pg 27.0-31.0 [facility] ZixtebmECMMPHUYZH9465-06-86 09:52:0033.4[facility]annHEMATOLOGY 2019-12-01 09:52:0016.7[facility] QwykncsIORKRAWXDX5095-41-33 09:52:30517Akdbvdoi VxzecknSOGCFVAWKO6006-54-93 09:52:009.6[facility] SigdofbFUTPTXIGHJ9467-20-70 09:52:0067.9[facility] KqntgjqXPQYDXJTVW1238-53-57 09:52:0020.7[facility] GTWQVGWNUE3088-90-14 09:52:009.8[facility] MgwcpciSLBERFBUZA0460-77-31 09:52:000.7 [facility] HmowsudSDJVHLKMJR0742-65-12 09:52:000.9[facility]annHEMATOLOGY 2019-12-01 09:52:007.4[facility] EizfdhkVLQESLBAIL8071-68-87 09:52:002.3[facility] SotwwgtGNSHQWSXND5125-13-24 09:52:001.1[facility] MnksnudWDYENUCBMT4822-91-62 09:52:000.1[facility] UqwkahpONTHANGMNM1308-03-62 09:52:000.1[facility] AND UBRBX1371-18-48 01:14:00Light Yellow *NA*(11/30/19 8:14 PM)[facility] [employer] [facility] URINE AND BTRDM6896-20-11 01:14:00Clear (11/30/19 8:14 PM)[facility] MGIMA9970-37-90 01:14:00 Test Item Value Reference Range Interpretation Comments UA Spec Grav (test code = UA Spec 1.012 1 Grav) [facility] SKSZP8952-45-30 01:14:00 Test Item Value Reference Range Interpretation Comments UA pH (test code = UA pH) 7.0 1 5.0-8.0 [facility] VSSIZ3499-53-93 01:14:00Negative *NA*(11/30/19 8:14 PM) [facility] BMBOY2326-52-66 01:14:00Small *ABN*(11/30/19 8:14 PM) [facility] EBWBD6008-89-53 01:14:00<1.0[facility] QNCEA3271-95-03 01:14:00Negative (11/30/19 8:14 PM)[facility] BIXCV6984-05-04 01:14:00Negative (11/30/19 8:14 PM)[facility] STOOL 2019-12-01 01:14:00<1[facility] CNISZ5399-39-17 01:14:001 [facility]annCHEM FADOZ2688-36-80 11:13:77762Qtbbykmp HermannCHEM PANEL 2019-11-30 11:13:0022[facility]annCHEM VWAHN4565-40-05 11:13:000.83[facility]annCHEM NJGRV5000-71-36 11:13:83913Hjaqntug HermannCHEM AFSYV1226-60-75 11:13:005.3[facility]annCHE[facility] MYJLF7277-02-33 11:13:52451Bpysmrfm HermannCHEM MANSZ6361-84-86 11:13:0028[facility]annCHE[facility] GCGSX2934-16-32 11:13:007.8 [facility]CHE[facility] SPYKH5701-24-97 11:13:0012.3[facility]annCHEM PANEL 2019-11-30 11:13:0071[facility] AdjijitWFFIYTUTQO3911-60-90 11:13:0010.6[facility] VzbxnhuOLKEOFXGAZ3187-38-32 11:13:004.40[facility] IeggwtfJVPSNHGUZT1092-88-83 11:13:0013.0[facility] JvjstcnKFPQTMRUMV7798-47-79 11:13:0040.0[facility] [employer] DDASFSMBSI9333-58-06 11:13:0091.0[facility] DznmbmkWVKCNKLOXN3996-28-54 11:13:00 Test Item Value Reference Range Interpretation Comments MCH (test code = MCH) 29.5 pg 27.0-31.0 [facility] UvttmqmGZSLMZOVVB0028-62-94 11:13:0032.4[facility] HermannHEMATOLOGY 2019-11-30 11:13:0016.5[facility] GjbhsggZXTIDBUQKH6210-29-02 11:13:52933Nkggpaao RxdeaxeLPEDKGZICI5922-27-72 11:13:0010.0[facility] RzeirogMSQNQWNXBE8137-19-73 11:13:00 Test Item Value Reference Range Interpretation Comments PT (test code = PT) 13.3 s 12.0-14.7 [facility] BvmhqvlKRBOMSGETB4612-86-09 11:13:00 Test Item Value Reference Range Interpretation Comments INR (test code = INR) 1.01 1 0.85-1.17 [facility] YudhogmSCHMAOKWQS7270-22-54 11:13:00 Test Item Value Reference Range Interpretation Comments PTT (test code = PTT) 29.5 s 22.9-35.8 [facility] CacpamwNHUSHRPBDJ1226-37-07 11:13:0059.5[facility]annHEMATOLOGY 2019-11-30 11:13:0029.2[facility] QsxvuogKDZTNPOOFG9179-79-80 11:13:009.3[facility] PdkajcrEKWVJVFYJF7994-14-35 11:13:001.0[facility] EgdrsxzXRUNMHXSDP8287-28-79 11:13:001.0[facility] KbunqsmDSOEFBPPJW4253-84-73 11:13:006.3[facility] VXBSFLTHZI9779-26-74 11:13:003.1[facility] DnbneesQVENNETWHM8844-99-30 11:13:001.0 [facility] WvsahbuGXNNYUJKKI3221-94-90 11:13:000.1[facility]annHEMATOLOGY 2019-11-30 11:13:000.1[facility] YOHVFUP2204-05-09 09:04:00 Negative (11/29/19 4:04 AM)[facility]annCHEM ZXTTX2453-85-97 09:04:0097 [facility]annCHEM IXRMF4574-08-37 09:04:0026[facility]annCHEM PANEL 2019-11-29 09:04:000.90[facility]annCHEM ULDEP7028-24-14 09:04:44552Pjgfnxsj HermannCHEM QKSOE4323-63-94 09:04:003.9[facility]annCHEM LTUXJ1372-39-32 09:04:71703Jenpcskw [facility]annCHEM SVIJV6090-32-52 09:04:0032[facility]annCHEM RCYCU0641-87-27 09:04:008.7[facility]annCHEM AXGGV1130-40-17 09:04:005.9 [facility]annCHEM KXVDV6904-55-09 09:04:0064[facility]annHEMATOLOGY 2019-11-29 09:04:00 Test Item Value Reference Range Interpretation Comments PT (test code = PT) 13.6 s 12.0-14.7 [facility] KycrudqKMYKRDTCTE9847-05-79 09:04:00 Test Item Value Reference Range Interpretation Comments INR (test code = INR) 1.04 1 0.85-1.17 [facility] AfpmnjySHCZDYELKZ2127-77-27 09:04:00 Test Item Value Reference Range Interpretation Comments PTT (test code = PTT) 30.9 s 22.9-35.8 [facility] FdgrhxxNWRGYIPCYJ8375-65-63 09:04:0010.6[facility]annHEMATOLOGY 2019-11-29 09:04:004.50[facility] UodfuzaASGCFPTKWV8043-08-25 09:04:0013.5[facility] GwdjecuJOLFBGANRU3406-83-18 09:04:0040.4[facility] TexpexnTECPACEKPP5672-39-14 09:04:0089.8[facility] QxustkaDRCUKPURNT1584-82-48 09:04:00 Test Item Value Reference Range Interpretation Comments MCH (test code = MCH) 30.0 pg 27.0-31.0 [facility] WcrsdozIHHPBOKQUV9241-06-94 09:04:0033.4[facility]annHEMATOLOGY 2019-11-29 09:04:0016.7[facility] FgisprwBMXQJHXJZW8567-50-50 09:04:47000Eyqcivvs NdzqkgaVVPZPDRPFP3507-63-59 09:04:009.5[facility] OhkhwncIXDVDHKTYJ6517-61-12 09:04:0065.7[facility] MaaohbcSFIFNVOPGP3838-04-39 09:04:0024.6[facility] VBSESDKPSI7847-92-58 09:04:008.2[facility] FujcocyOOZSKGOORA6952-45-53 09:04:000.8 [facility] KedazdeVWEZQBLTOA8457-47-74 09:04:000.7[facility] HermannHEMATOLOGY 2019-11-29 09:04:006.9[facility] FvzzgubBQTELTSYIJ4218-12-95 09:04:002.6[facility] UyrlvusLXNZBMUEUD9841-38-43 09:04:000.9[facility] UifklqpYDRJFZPFYB4829-01-97 09:04:000.1[facility] IevanbrXSNQKEWLUX7647-89-83 09:04:000.1[facility] FAGXKDBBQW2925-17-84 21:00:00Not Detected (11/27/19 4:00 PM)[facility]annCHEM QMYQN5282-85-86 09:32:54628Xhlldjts HermannCHEM IDYLH2301-42-56 09:32:0024 [facility]annCHEM WQPMQ8743-92-91 09:32:000.60[facility]annCHEM PANEL 2019-11-27 09:32:88220Msbkcszj HermannCHEM FLKPS8968-09-90 09:32:003.4[facility]annCHEM NCSSS4041-98-73 09:32:87285Tfjvlcqm HermannCHEM VPYZC7133-24-88 09:32:0029[facility]annCHEM UFPVD7483-59-64 09:32:008.3[facility]annCHEM RKVGJ2367-43-49 09:32:0010.4[facility] HermannCHEM HLARY7631-12-42 09:32:0091 [facility] BjdaqdiYBNTLHZLVF0104-77-43 09:32:0010.2[facility] HermannHEMATOLOGY 2019-11-27 09:32:004.57[facility] ZaausfvOAYQURWVYU7518-12-06 09:32:0013.6[facility] VowpawpRDYBBZLNSA7800-95-76 09:32:0041.4[facility] RqthzcaNVTFVXQTYZ5627-92-88 09:32:0090.4[facility] EuuxyxlLQTPTXWSTG5796-89-56 09:32:00 Test Item Value Reference Range Interpretation Comments MCH (test code = MCH) 29.8 pg 27.0-31.0 [facility] OagyejzNWMOXHWEZF2155-08-62 09:32:0032.9[facility]annHEMATOLOGY 2019-11-27 09:32:0016.7[facility] VrvtmoqWUPCLJVNME4030-99-58 09:32:93579Rjiiuwak JomgdtqUDEIYBROFD3815-32-92 09:32:009.8[facility] LffyuijEVIBAM0386-80-85 09:18:00 167[facility] JcnfolvKGSZZB3871-09-20 09:18:23278Sjdvviuo RydccdrVWKTQU8268-68-90 09:18:0050[facility] GjopnwfULOHDV5152-04-44 09:18:00 Test Item Value Reference Range Interpretation Comments CHD Risk (test code = CHD Risk) 3.02 1 3.90-5.80 [facility] FvdonlqEVVGVV4705-93-69 09:18:0068[facility] DkjjnhkFHQNTT6772-04-12 09:18:00 Test Item Value Reference Range Interpretation Comments VLDL (test code = VLDL) 33 1 [facility]annSPECIAL PHFOFEELC6744-89-79 09:18:008.5[facility] [employer] HPSUZPSNCL7572-99-91 03:47:000.45[facility] HermannCHEM BCZYW2654-35-80 12:04:00 132[facility] HermannCHEM ONHBA1686-47-45 12:04:0019[facility]annCHEM PANEL 2019-11-24 12:04:000.76[facility]annCHEM JTJUW9544-01-23 12:04:77339Fccbkkml HermannCHEM RBKQH0108-04-85 12:04:003.7[facility]annCHEM URDHG0775-78-78 12:04:29493Aqykhmcb HermannCHEM QQBDJ0259-34-82 12:04:0027[facility]annCHEM NUCJP8587-04-70 12:04:009.7[facility]annCHEM XZGTK8499-90-17 12:04:008.7 [facility]annCHEM EGYMY6060-18-54 12:04:0079[facility]annHEMATOLOGY 2019-11-24 12:04:0090.7[facility] QkpxrlcAKUTAOSCVW0616-87-63 12:04:006.4[facility] MfyehjdZRMLDNITCH6835-17-57 12:04:002.1[facility] DntctpwBPLLASYVAM5756-73-90 12:04:000.3[facility] PjdmctiPUNDMUPPFO0603-52-64 12:04:000.5[facility] FQKVSFKPJA7654-51-74 12:04:0015.1[facility] JqdpcuqAOTLNPDFHJ9395-23-90 12:04:00 1.1[facility] GiicuauJVWXZGYPLF3439-35-39 12:04:000.3[facility] HermannHEMATOLOGY 2019-11-24 12:04:000.1[facility] PmnzrlkJXEVLKGSHT0216-50-90 12:04:0016.7[facility] JpcghagDIFGZZJJHI2980-17-52 12:04:005.00[facility] UxsidzfAXBIHDFQMK6964-89-25 12:04:0015.1[facility] MhfpjzsKXPNNUGPBL3495-63-46 12:04:0045.1[facility] [employer] BHQYZORJED5238-90-74 12:04:0090.2[facility] WtboqfdXUIPXEAPEX9047-17-35 12:04:00 Test Item Value Reference Range Interpretation Comments MCH (test code = MCH) 30.1 pg 27.0-31.0 [facility] RfhfazpBDEJWVAQPN2971-66-04 12:04:0033.4[facility] HermannHEMATOLOGY 2019-11-24 12:04:0016.3[facility] SlaoctiTGCQLOEYPY7243-16-39 12:04:78264Nisluioe UovprqbTKTFJYAVHN3455-92-52 12:04:009.6[facility] HermannCHEM ZDFWQ5490-46-83 16:14:76944Mufsxqcg HermannCHEM KSEAT0199-73-41 16:14:0018[facility]annCHEM ZXPZR3168-84-44 16:14:000.96[facility]annCHEM CNFEV8863-94-58 16:14:81021 [facility]annCHEM PCLJS3307-45-42 16:14:004.3[facility] HermannCHEM PANEL 2019-11-23 16:14:29212Qockcupt HermannCHEM RSEZH3386-53-15 16:14:0026[facility]annCHEM ZDNFE7971-50-53 16:14:0010.3[facility] HermannCHEM GHVLE1701-17-14 16:14:008.8[facility]annCHEM XNPNG8823-00-97 16:14:0059[facility] SCJLAGSNOI0017-76-23 09:51:0081.3[facility] PecjourERPZZADXIZ5879-24-29 09:51:00 11.5[facility] KvsaqsnWUCBJLEQDV3587-62-38 09:51:005.4[facility] HermannHEMATOLOGY 2019-11-23 09:51:000.8[facility] EowcifmXBUPGUNGRR1000-93-58 09:51:001.0[facility] YssogdrEWWUMYYOIY3333-41-87 09:51:0015.8[facility] ZyeuklvBNAJLVPQYC2161-77-29 09:51:002.2[facility] UzwriymEYEZVXAJKR8443-22-44 09:51:001.1[facility] OQNVIOKSIZ8487-78-01 09:51:000.2[facility] JentfuwAJUTPYPSON6564-97-26 09:51:000.2 [facility] FodgyabWUZWHAEAYY8269-63-80 09:51:0019.4[facility] HermannHEMATOLOGY 2019-11-23 09:51:005.40[facility] IaeutotUHEXOHBVCP7463-67-23 09:51:0016.1[facility] OkhrbtwGYCUQPUVPM1033-49-71 09:51:0049.1[facility] LzhknlbURWWCSPJFC5819-47-13 09:51:0091.0[facility] EoyrqwaCKYBRLGHRS8423-79-59 09:51:00 Test Item Value Reference Range Interpretation Comments MCH (test code = MCH) 29.9 pg 27.0-31.0 [facility] LgdjibuRBPQFNZSLQ1298-92-23 09:51:0032.9[facility] HermannHEMATOLOGY 2019-11-23 09:51:0016.7[facility] PlthqnzPGMGLIWFQJ3526-91-93 09:51:37691Sirjycsk FyekmldWSGETZCPKQ7828-49-30 09:51:009.8[facility] HermannCARDIAC PGBHGKJ0994-29-97 02:28:000.04[facility] HermannCHEM TTTNM4783-67-58 02:28:001.7[facility] LLXMFUPNFS3655-80-02 16:05:00Not Detected (11/22/19 11:05 AM)[facility]annCHEM GMVLP3857-82-53 12:35:002.6[facility]annURINE AND KPSDY6347-70-95 12:20:00 Veronique *ABN*(11/22/19 7:20 AM)[facility] NNFAQ9171-88-27 12:20:00 Slight *ABN*(11/22/19 7:20 AM)[facility] URDEM2264-21-80 12:20:00 Test Item Value Reference Range Interpretation Comments UA Spec Grav (test code = UA Spec 1.035 1 Grav) [facility] YOLWT5366-14-62 12:20:00 Test Item Value Reference Range Interpretation Comments UA pH (test code = UA pH) 5.0 1 5.0-8.0 [facility] PDMYI5025-84-88 12:20:00Negative *NA*(11/22/19 7:20 AM) [facility] KTUHZ6998-95-12 12:20:00Negative (11/22/19 7:20 AM) [facility] OMHWX5973-81-09 12:20:002.0[facility] AND HSQAQ2283-71-13 12:20:00Negative (11/22/19 7:20 AM)[facility] FIYYK1701-69-66 12:20:00Negative (11/22/19 7:20 AM)[facility] FJBIA7206-04-68 12:20:001[facility] YUGSR8644-41-85 12:20:007 [facility] RSXSK1218-89-98 12:20:004[facility]annHEMATOLOGY 2019-11-22 11:40:57 Test Item Value Reference Range Interpretation Comments PT (test code = PT) 12.4 s 12.0-14.7 [facility] UjhcfvjEQMITMDYEF0181-26-57 11:40:57 Test Item Value Reference Range Interpretation Comments INR (test code = INR) 0.92 1 0.85-1.17 [facility] LplfejzJKBKWRPKUD9116-32-46 11:40:57 Test Item Value Reference Range Interpretation Comments PTT (test code = PTT) 25.1 s 22.9-35.8 [facility] LmjngjbGJVEALNCYT9098-81-71 11:40:57 Test Item Value Reference Range Interpretation Comments ACT (TEG) Rapid (test code = ACT (TEG) 89 s 86-118 Rapid) [facility] AllianceXnqumpxFQOCMZXXFM5816-18-24 11:40:57 Test Item Value Reference Range Interpretation Comments Split Point Rapid (test code = Split 0.3 min Point Rapid) [facility] LnxntjxTAGSMURZZD6012-61-19 11:40:57 Test Item Value Reference Range Interpretation Comments R-time Rapid (test code = R-time 0.4 min 0.4-0.7 Rapid) [facility] AllianceMwyzphfEFLJCIKTTV0993-03-18 11:40:57 Test Item Value Reference Range Interpretation Comments K-time Rapid (test code = K-time 1.3 min 0.6-2.3 Rapid) [facility] AllianceOadpzqbHMMMMNPTXE9878-63-94 11:40:57 Test Item Value Reference Range Interpretation Comments Angle Rapid (test code = Angle 75 degrees 64-80 Rapid) [facility] AllianceQhacphhETTGXNWKQO8424-07-86 11:40:57 Test Item Value Reference Range Interpretation Comments Max Amplitude Rapid (test code = Max 64 mm 52-71 Amplitude Rapid) [facility] AllianceGjmpuduAHSCOKQIKH0588-75-36 11:40:579.0[facility] HermannHEMATOLOGY 2019-11-22 11:40:570.0[facility] OwreottGBOSLSZBAT8116-86-96 11:40:57Normal (11/22/19 6:40 AM)[facility] TewhowqCIEZDPXRSK8729-09-42 11:40:57Normal (11/22/19 6:40 AM)[facility] MpjexalLKAATRDVQM4507-85-88 11:40:5777.5[facility] [employer] HUTMODVZNH6900-29-14 11:40:5714.2[facility] XlpbpnyJQGGGPCSGH5147-43-50 11:40:57 6.8[facility] PbwykvvDRMGDBOGPD8642-14-03 11:40:570.2[facility] HermannHEMATOLOGY 2019-11-22 11:40:571.3[facility] YzexfevHOIAXFNKIB1415-89-80 11:40:5716.9[facility] ZyrzxcuWWUEVBLNYE3070-52-29 11:40:573.1[facility] WguphimCAMRHNYBXK9215-54-88 11:40:571.5[facility] LtfmnybTCBLZOKPFK1718-13-86 11:40:570.1[facility] QYMYIMOGEV0157-37-27 11:40:570.3[facility]annBL[facility]OD B[facility] BRGRHMT6828-73-41 10:56:00Negative (11/22/19 5:56 AM)[facility] HermannCARDIAC ZJUXTQL4806-06-75 10:52:79233Tngexayj HermannCARDIAC ELWVJGI4978-16-35 10:52:330.05[facility] HermannCHEM GKLQN1438-65-64 10:52:335.8[facility] HermannCHEM JOENL6964-48-20 10:52:332.4[facility] HermannCHEM KNKPY8882-30-44 10:52:43703Yhblhxky HermannCHEM HZFWN9786-08-00 10:52:38214Nuwfrpgp HermannCHEM PROWP5442-26-47 10:52:331.2 [facility]annCHEM YLJGY8369-04-89 10:52:330.3[facility] HermannCHEM PANEL 2019-11-22 10:52:330.9[facility] HermannCHEM KMEZJ2616-18-60 10:52:333.4[facility] HermannCHEM ZYACZ5611-11-70 10:52:33 Test Item Value Reference Range Interpretation Comments A/G Ratio (test code = A/G Ratio) 0.7 1 0.7-1.6 [facility]annCHEM GDCAQ5226-66-36 10:52:98495Deuangzc HermannHEMATOLOGY 2019-03-04 17:02:0060.1[facility] XltnopdORSFUEENWY9533-00-44 17:02:0032.3[facility] QtlqlmzJIJFBQKJZE3975-86-25 17:02:005.9[facility] FowahjtBWADVFEEZN9478-74-76 17:02:000.7[facility] EbttstiBDGXJNRLYK7913-81-23 17:02:001.0[facility] [employer] EHFAJFRRGH6062-81-57 17:02:004.3[facility] FsglvkpUNGLOADTFQ8154-67-63 17:02:002.3 [facility] PkxuwmcSJDATSFQGB5917-54-56 17:02:000.4[facility]annHEMATOLOGY 2019-03-04 17:02:000.1[facility] BxgiiqmKLIYVVULCW4446-95-30 17:02:002[facility] FpixfaeAZXLVNZFFY0317-03-46 17:02:007.2[facility] BrmqahhAZHDULBWVT9326-51-64 17:02:003.76[facility] IzijcceGUGLMHVYQY8112-13-67 17:02:0012.1[facility] [employer] LARXRQOJBA2829-39-05 17:02:0036.8[facility] QmqhatdIUXUIXVHCY7781-18-20 17:02:00 97.9[facility] AmyfovjZGOAAPRSRV7509-96-30 17:02:00 Test Item Value Reference Range Interpretation Comments MCH (test code = MCH) 32.1 pg 27.0-31.0 [facility] YslcowhQJBGNGSFPQ0785-53-76 17:02:0032.8[facility] HermannHEMATOLOGY 2019-03-04 17:02:0016.7[facility] BruidhjYRBUCBARGA7829-82-79 17:02:02023Iuqylyfm ZposorbRHSXKOCXJC3145-94-76 17:02:008.9[facility] ImweuyjWQMGKTJZBU7405-96-15 17:02:00<2.9[facility]annBLOOD BANK DOMXYTQ1574-46-63 12:49:00Negative (02/26/19 7:49 AM)[facility] HlnwrlzQOQGVHWQNZ3167-68-11 09:11:0067.8[facility] JusdaxvLKVTRIEYNQ3211-00-80 09:11:0022.9[facility] QlhxecfSTNHFOFHOV4045-86-21 09:11:007.8[facility] OahjcanVXWYPAJCVK4906-71-87 09:11:000.4[facility] [employer] BEXOKBTLEN9396-81-56 09:11:001.1[facility] GvswckoGCKIBXWKYG2461-24-77 09:11:006.3 [facility] OliqjpfSMLMEFRQUE3748-29-96 09:11:002.1[facility]annHEMATOLOGY 2019-02-25 09:11:000.7[facility] PlpfxgjNOCEQYFNYF2123-80-63 09:11:000.1[facility] NythxbsJHYDLQPHCG5675-67-91 09:11:001+ *ABN*(02/25/19 4:11 AM)[facility] [employer] INFCFSFFYG7383-31-72 09:11:009.2[facility] GkciisfNZULZXKBXJ8440-29-91 09:11:00 3.50[facility] SbnxixiDQKDALQICF5178-88-55 09:11:0011.5[facility]annHEMATOLOGY 2019-02-25 09:11:0035.5[facility] YtsjjlgFSXGDEEOPZ8143-15-32 09:11:64616.5 [facility] EgwkiffBAVORDBKYL9877-58-60 09:11:00 Test Item Value Reference Range Interpretation Comments MCH (test code = MCH) 32.7 pg 27.0-31.0 [facility] TvzdcduZZYAQURGVU8970-79-07 09:11:0032.2[facility] HermannHEMATOLOGY 2019-02-25 09:11:0017.4[facility] IozzytqRQVAECYDQA4293-07-17 09:11:83191Ghkfkkfi MqrjirkUXBPBIYYPB9189-36-63 09:11:009.2[facility] HermannCHEM MEKCL7342-94-40 10:17:12754Pwoviwxg HermannCHEM QTLJJ2494-36-65 10:17:0020[facility] HermannCHEM PCQYR0770-42-82 10:17:000.89[facility]annCHEM GDCJT9597-63-40 10:17:32158 [facility]annCHEM HQLEB4618-07-56 10:17:004.3[facility] HermannCHEM PANEL 2019-02-22 10:17:88038Jvjusppo HermannCHEM TXFVD3648-67-71 10:17:0027[facility]annCHEM UNMFE3634-05-21 10:17:0013.3[facility] HermannCHEM IAFHA4943-05-70 10:17:008.9[facility] HermannCHEM WMOWL0091-57-03 10:17:0065[facility] NBAMZXQFOM2735-03-46 10:17:0063.7[facility] MyfwasiPCOPVIJGNJ9280-76-45 10:17:00 26.8[facility] FfoyrlnJAQAHLOOLT3671-96-17 10:17:008.0[facility]annHEMATOLOGY 2019-02-22 10:17:000.4[facility] JxsheoeMMDFPAMPIC4073-98-72 10:17:001.1[facility] HbvrwtvTAIQPTXPKT3564-71-53 10:17:006.4[facility] PdfgawtNKXMXUJRUI4016-64-42 10:17:002.7[facility] TahraoqBLBHVGITSV3610-37-08 10:17:000.8[facility] JVBKPJYWST8470-03-85 10:17:000.1[facility] HfhalcjCXACYXBJZH5037-45-13 10:17:00 10.1[facility] CwfrnywFGCBUENWKS5529-53-43 10:17:003.93[facility]annHEMATOLOGY 2019-02-22 10:17:0012.7[facility] TfslgtvNCCDUSRWSC5285-53-31 10:17:0038.8[facility] QlbnxzvNPJDWGMYLZ6224-93-34 10:17:0098.9[facility] UrimjibSHEHDIFVDB2750-18-00 10:17:00 Test Item Value Reference Range Interpretation Comments MCH (test code = MCH) 32.4 pg 27.0-31.0 [facility] InefjzeHFQXCNQBGS3748-74-38 10:17:0032.7[facility] HermannHEMATOLOGY 2019-02-22 10:17:0017.3[facility] XvfafxeSKSYFXUQVZ3069-77-53 10:17:24828Sqhznfzl HsjxysiSWAERVZACV3905-03-37 10:17:009.8[facility] HermannCHEM XOLQW9826-44-42 10:59:0095[facility] HermannCHEM HGLOJ0758-43-23 10:59:0018[facility] HermannCHEM FTIXX7854-67-16 10:59:000.77[facility] HermannCHEM MFWNN1692-23-90 10:59:92865 [facility]annCHEM BEYJR4747-55-01 10:59:004.1[facility] HermannCHEM PANEL 2019-02-21 10:59:64822Xheruxdj HermannCHEM UJZOE8013-53-22 10:59:0026[facility] HermannCHEM CSBIZ4239-40-10 10:59:008.5[facility]annCHEM WJZBT5341-50-32 10:59:0078[facility]annCHEM CCEZL2202-69-60 10:59:0012.1[facility]annCHEM ANLJO5915-62-37 10:59:002.0[facility]annCHEM YXLAI5565-94-63 10:59:003.5 [facility] LviiiidOBWZHNXEINCE2899-76-20 09:46:0011.1[facility] HermannELECTROLYTES 2019-02-19 09:46:0073[facility] JskgnoeBMEOOVMRGGOJ6078-44-40 09:46:0021[facility] EbngrzdPVJXOWEPEDKD5721-36-70 09:46:000.66[facility] EkufxzpSJWXRXDBYUND5415-97-54 09:46:31480Ewnvhxyx BopafbjKECHMNKVOBVX7804-35-38 09:46:004.1[facility] ZXJFTATLDQJT2793-66-12 09:46:56137Qvffyoif KgtcibnGLFQZSBQKKKS9326-36-78 09:46:0026[facility] BevueubOHDIPFCCWYPV2136-15-21 09:46:008.6[facility] [employer] KJUGVSLDSCLY2698-85-10 09:46:002.1[facility] NdjxvfzBCSMISGUPCRZ9050-00-48 09:46:003.0[facility] ObltegjLCCAHKSYNBBU3532-22-92 09:46:0088[facility] PIMZQEGMCB1856-96-34 09:46:000.1[facility] HermannCHEM FZBLJ7505-73-46 08:45:002.4 [facility] HermannCHEM ECWIK9978-61-95 08:45:005.0[facility] HermannHEMATOLOGY 2019-02-18 08:45:000.0[facility] UdyqcinHDQMKSLOFP3506-66-72 08:45:002.0[facility] DdfypqaVUVOEZBHZJ5893-16-28 08:45:000.0[facility] CelkckkPCRMIQXXEF7413-11-21 08:45:001[facility] TricjrcGJVUXDVBQE2950-52-32 08:45:00Normal (02/18/19 3:45 AM) [facility] UgsjqmeCAKCEXCHBE8346-09-57 08:45:001+ *ABN*(02/18/19 3:45 AM)[facility] BtpwfeaTKXSVGCSKO3515-20-84 02:24:0018.8[facility] XgodwcsEKMPGTQWUA6441-23-93 02:24:00 Test Item Value Reference Range Interpretation Comments Roya AVILES (test code = Roya Couch 2200 1 TND) [facility] WtpwathUTOKMVJMCE4280-84-79 07:22:001.0[facility] HermannHEMATOLOGY 2019-02-16 07:22:002.0[facility] WukmbtaJDVSLIMPBP4969-58-15 07:22:003.0[facility] NtnhlssVGCHGTRRVR4995-30-75 07:22:000.0[facility] KztlfphIEMZUCJLJQ7962-50-23 16:09:000.2[facility] EgxuqhbWJUJFSWKME9451-50-93 16:09:000.0[facility] XBYZRVAKJZ5851-97-74 16:09:001.0[facility] FswiealETGUCFGICQ7786-01-88 16:09:001.0 [facility] HlxzxfuJDBMPJFDZC3984-47-15 16:09:000.0[facility]annHEMATOLOGY 2019-02-15 16:09:002+ *ABN*(02/15/19 11:09 AM)[facility] 2019-02-15 16:09:001+ *ABN*(02/15/19 11:09 AM)[facility] 2019-02-13 10:40:000.4[facility] CmxbxpqQFRLURAOJK2257-89-96 10:40:001+ *ABN*(02/13/19 5:40 AM)[facility] YaeabvoMCEPMIAYJJ9897-39-04 20:53:0096.6[facility] HermannCHEM RHRZG2751-67-59 07:43:001.6[facility]annCHEM QEKDC5348-53-99 01:51:002.4[facility] KlsbtquBNNXOFSYJS7367-53-66 01:51:0012.1[facility] TRIMETHOPRIM+SULFAMETHOXAZOLE:SUSC:PT:ISOLATE:ORDQN:YNR3103-69-06 18:43:00 Staphylococcus aureusMemorial [facility] TRIMETHOPRIM+SULFAMETHOXAZOLE:SUSC:PT:ISOLATE:ORDQN:AHG3862-30-82 18:43:00 Enterococcus SpeciesMem[facility] TRIMETHOPRIM+SULFAMETHOXAZOLE:SUSC:PT:ISOLATE:ORDQN:[id number] 18:43:00 Proteus mirabilisMemorial BkqomzaFCAQOXDMFK2585-13-82 14:43:0014.3[facility] HermannCHEM PJHIM4844-74-44 03:40:001.6[facility]annCHEM RZWDW5773-10-76 14:04:002.1[facility] ZpdaoaeKZZTIHRSNI6478-95-04 14:04:00Normal (02/09/19 9:04 AM) [facility] HtpbfjuMTGKMMSENB6727-78-87 14:04:00Normal (02/09/19 9:04 AM)[facility] HermannPARATHYROID CKDKDFP6568-65-41 14:04:001.06[facility] HermannPARATHYROID ASRJMDS6675-67-83 14:04:001.04[facility]UR[facility] AND VZQJB9610-52-16 08:55:00 Yellow *NA*(02/08/19 3:55 AM)[facility] PZTDE0894-68-24 08:55:00 Marked *ABN*(02/08/19 3:55 AM)[facility] LBFUE7836-56-48 08:55:00 Test Item Value Reference Range Interpretation Comments UA Spec Grav (test code = UA Spec 1.022 1 Grav) [facility] OBIBI3907-58-26 08:55:00 Test Item Value Reference Range Interpretation Comments UA pH (test code = UA pH) 5.0 1 5.0-8.0 [facility] ZVYOZ3236-19-40 08:55:00Negative *NA*(02/08/19 3:55 AM) [facility] GOLHM9169-19-03 08:55:00Negative (02/08/19 3:55 AM) [facility] JBFSF7580-45-88 08:55:00<1.0[facility] ITHKZ2827-96-82 08:55:00Negative (02/08/19 3:55 AM)[facility] VTAAU6919-45-16 08:55:00Negative (02/08/19 3:55 AM)[facility] TLSCL9925-73-94 08:55:0013[facility] VHIOE5747-35-65 08:55:004 [facility] QHUIZ8288-54-28 08:55:005[facility] CHEM 2019-02-08 08:55:0030[facility] CZNV9521-03-97 08:55:72597.00[facility] HermannCARDIAC ENSHLEG2707-13-95 06:59:00<0.02[facility]annHEMATOLOGY 2019-02-08 06:59:0095[facility] WyobajqZEJGLJSKTM4556-50-90 06:59:0081.9[facility] HermannPARATHYROID PUDFVZP4324-37-15 06:59:001.19[facility]annPARATHYROID KSNMDIA5769-83-65 06:59:001.17[facility]annCHEM KSPTY8038-02-90 01:53:01495 [facility]annPARATHYROID MCROBVZ8325-67-63 06:52:001.08[facility] PARATHYROID VWYXCFD1037-14-40 06:52:001.09[facility] HermannANEMIA QUAMN5633-68-58 19:48:03429Tighgizp HermannANEMIA CFYLW4683-59-04 19:48:0016.9[facility] [employer] CHEM TLVCQ3246-91-95 19:48:0013.0[facility] HermannCHEM ZCOAQ3921-30-68 19:48:00 172.6[facility] UpxjsqnXNDVCFJROO7227-05-49 19:48:0017.3[facility] HermannIMMUNOLOGY 2019-02-06 19:48:73074Xnfkzamb HermannSPECIAL DBDGVWMMI6347-76-02 19:48:008.5 [facility]annCARDIAC WIXXGKJ9813-50-28 19:43:000.03[facility] HermannCARDIAC IPUQBBD1490-92-15 19:43:05919Oexjaxjo HermannCARDIAC CUSHNAQ5362-43-21 19:43:00 1.5[facility] HermannCARDIAC GFHSEMM4512-69-50 19:43:00 Test Item Value Reference Range Interpretation Comments CK MB Index (test code = CK MB Index) 0.8 1 <=2.5 [facility]annCHEM TFQGO6953-26-05 19:43:00 Test Item Value Reference Range Interpretation Comments B/C Ratio (test code = B/C Ratio) 16 1 6-25 [facility]annCHEM EUEJM2413-38-82 19:43:006.4[facility]annCHEM PANEL 2019-02-05 19:43:002.2[facility]annCHEM TARHF2376-09-48 19:43:004.2[facility]annCHEM CPLBS8834-56-06 19:43:00 Test Item Value Reference Range Interpretation Comments A/G Ratio (test code = A/G Ratio) 0.5 1 0.7-1.6 [facility]annCHEM VUGUM8326-53-30 19:43:05729Mucxfsgz HermannCHEM PANEL 2019-02-05 19:43:49967Iirdtglp HermannCHEM NNJOE4720-66-38 19:43:000.6[facility] HermannCHEM WRUPQ3365-90-41 19:43:77085Upncicoo HermannCHEM QDOFG1969-67-96 19:43:006.5[facility] AND IEJRJ5283-34-88 19:43:00Dark Yellow *NA*(02/05/19 2:43 PM)[facility] EULIT6614-27-26 19:43:00Marked *ABN*(02/05/19 2:43 PM)[facility] KMJFN5320-72-98 19:43:00 Test Item Value Reference Range Interpretation Comments UA Spec Grav (test code = UA Spec 1.022 1 Grav) [facility] SENXO5874-79-21 19:43:00 Test Item Value Reference Range Interpretation Comments UA pH (test code = UA pH) 6.0 1 5.0-8.0 [facility] ICEEN7796-91-92 19:43:00Negative *NA*(02/05/19 2:43 PM) [facility] SKJOR1738-35-13 19:43:00Negative (02/05/19 2:43 PM) [facility] IBQLR2343-89-90 19:43:002.0[facility] UYMID2414-70-49 19:43:00Negative (02/05/19 2:43 PM)[facility] STOOL 2019-02-05 19:43:00Negative (02/05/19 2:43 PM)[facility] STOOL 2019-02-05 19:43:004[facility] AND HDKLZ1692-09-42 19:43:002[facility] XrajidbJPWQFAMEHB0485-66-23 10:01:0012.0[facility] SfwtdolFEDMGAVYPG3320-21-78 10:01:002.2[facility] TzlfgmuYOWBABGFJZ1394-68-99 10:01:000.8[facility] JJENFWDLUP7991-68-29 10:01:0078.0[facility] QkxsnzyIFEYMZINVH3266-46-74 10:01:00 0.0[facility] ZhuhsmdVHLQOVCXWU8361-75-10 10:01:0014.0[facility] HermannHEMATOLOGY 2019 10:01:005.0[facility] YrdbatdCCFGJSLBLT0773-60-81 10:01:001.0[facility] LoplddvYVIZUCLBGT5621-97-59 10:01:002.0[facility] GcgansnIEWUGMPJJL3546-79-90 10:01:000.0[facility] XbhfepqKCIILQKWTT7415-35-10 10:01:003[facility] [employer] BTRPFONCKK6803-27-15 10:01:001+ *ABN*(01/09/19 5:01 AM)[facility]annHEMATOLOGY 2019 10:01:001+ *ABN*(01/09/19 5:01 AM)[facility] KhvjvrmCLYLJZYMLE7874-91-58 10:01:00Moderate *ABN*(01/09/19 5:01 AM)[facility] ZfaqlxzZSNOATGMYX1237-15-42 10:01:0015.4[facility] OmkqjsnMVGREIVAXA4885-54-89 10:01:002.79[facility] SIUEBWUSAZ3159-56-04 10:01:009.6[facility] KyzlkmeEKILLCHAJE0694-84-54 10:01:00 29.3[facility] IjhhvleRSMXJSHMCN1939-05-60 10:01:44212.8[facility]annHEMATOLOGY 2019 10:01:00 Test Item Value Reference Range Interpretation Comments MCH (test code = MCH) 34.5 pg 27.0-31.0 [facility] OnmfbgkIXGTGRMBUJ3276-05-66 10:01:0032.9[facility]annHEMATOLOGY 2019 10:01:0022.7[facility] WitxzzrHEFFBDTXGL0106-06-04 10:01:72701Cgacgbnw MvkonhwGEVCXGJEPT1322-35-99 10:01:009.8[facility] HermannCHEM POWDX1688-73-84 10:31:0079[facility]annCHEM ZAPSE0203-16-29 10:31:0027[facility]annCHEM YITGL6622-77-68 10:31:000.77[facility]annCHEM DVRFS1097-95-04 10:31:84825 [facility]annCHEM GIJQO0641-43-95 10:31:004.2[facility]annCHEM PANEL 2019-01-07 10:31:79064Niywxrbu HermannCHEM KFPMC1853-93-01 10:31:0028[facility]annCHEM QTQMY7384-98-01 10:31:0012.2[facility]annCHEM QYMHQ2493-78-01 10:31:008.6[facility]annCHEM YEWEW3718-57-85 10:31:0078[facility]annCHEM JPLSH7972-15-19 10:31:002.1[facility] HermannCHEM OITSZ4379-94-21 10:31:003.7 [facility] CrcjcokRDZBTCPRMU2584-24-08 10:31:0014.2[facility]annHEMATOLOGY 2019-01-07 10:31:006.1[facility] RvydfhqRUFVHVTBTA7248-38-57 10:31:000.4[facility] LcivdctQIQIUPNGVG0289-01-86 10:31:000.2[facility] CzhcbvlCDOBJSFRAG9426-83-96 10:31:0067.0[facility] TbdhjnxBFZDMRRZFH0439-94-25 10:31:000.0[facility] EZWDQTIWMA8160-16-54 10:31:0029.0[facility] HocnvajJBICKGQUIH0082-03-15 10:31:00 2.0[facility] HjrdphoRFLPQQJYKX6727-04-18 10:31:001.0[facility]annHEMATOLOGY 2019-01-07 10:31:001.0[facility] HprvrahANKCVWTKOJ1830-25-35 10:31:000.0[facility] FwyeyucSULLGWRNZN9754-10-72 10:31:002[facility] UkkvuhnIFNQMGPOMT6323-17-71 10:31:00Normal (01/07/19 5:31 AM)[facility] NooupakBZFUWLFNDO2721-75-43 10:31:001+ *ABN*(01/07/19 5:31 AM)[facility] NpeoiqiHREDANDISF1934-04-60 10:31:001+ *ABN*(01/07/19 5:31 AM)[facility] XstrkhbNRMBROBHHU0103-30-68 10:31:00Moderate *ABN*(01/07/19 5:31 AM)[facility] QzaoeynKBBBPRVJNG7924-37-60 10:31:0021.2[facility] PynteutQHULTJALEZ7088-15-62 10:31:002.83[facility] NsimyujLNITJBJPIU3671-25-42 10:31:009.6[facility] KycgnfxKZWLWUOQYP6976-09-16 10:31:0029.6[facility] [employer] OLWWFEUZPI1807-38-57 10:31:01920.5[facility] QmglyhjFDIUVBEDFG7070-87-51 10:31:00 Test Item Value Reference Range Interpretation Comments MCH (test code = MCH) 33.9 pg 27.0-31.0 [facility] OiwrfsbZFVDXORLOW5366-28-10 10:31:0032.4[facility]annHEMATOLOGY 2019-01-07 10:31:0019.9[facility] DmkizuyRYAPJIZPLO7231-48-00 10:31:05735Kvqkgyws DmduylhLIPQUTOIDE3133-42-59 10:31:0010.6[facility] HermannCHEM OZQBL2585-30-18 19:41:83682Tnassstb HermannCHEM LGPER9710-22-23 19:41:0027[facility]annCHEM JGAXM1304-01-43 19:41:001.34[facility]annCHEM IGXTY3905-41-51 19:41:30923 [facility]annCHEM DCCQZ6325-83-24 19:41:004.0[facility]annCHEM PANEL 2019-01-06 19:41:71271Psezwmuy HermannCHEM QBAJL9784-63-24 19:41:0027[facility]annCHEM SBVUH2639-99-73 19:41:008.3[facility]annCHEM AFFGU8117-95-96 19:41:0040[facility]annCHEM IHUUA2428-01-73 19:41:0016.0[facility] GDZQAIZTGP4892-62-03 19:41:0084.9[facility] LimtrsxEXDIRMFCRG8865-42-57 19:41:00 11.4[facility] JvnfuiwGJIIPQAJPB7747-49-79 19:41:002.9[facility] HermannHEMATOLOGY 2019-01-06 19:41:000.2[facility] GmirwbjJSLFUTGHED1451-19-23 19:41:000.6[facility] KbhrcccVDJFPRVJKC6268-44-80 19:41:0012.0[facility] YliurpwJGSEXMKCJY8589-71-06 19:41:001.6[facility] SxxgoekCSWYQBUZFH8964-24-17 19:41:000.4[facility] [employer] RRFOMZZANJ7883-57-68 19:41:000.1[facility] VkwolhrQNEESJAPPN9561-79-42 19:41:001+ *ABN*(01/06/19 2:41 PM)[facility] VwedhtcNATOSNXRKL9204-19-46 19:41:0014.1[facility] CkhnqikOZOQHLLQLW9497-51-41 19:41:002.86[facility] PszyngzSNSUFIRGOR8035-35-51 19:41:009.7[facility] MpxuayaREIYKJBGHZ6948-94-67 19:41:0029.5[facility] [employer] BTKRVIOJXT5991-12-04 19:41:92793.3[facility] XxyltklSSBAAWRDSN8644-34-25 19:41:00 Test Item Value Reference Range Interpretation Comments MCH (test code = MCH) 33.8 pg 27.0-31.0 [facility] DzzqyarVIFKGFCIIJ8688-69-72 19:41:0032.7[facility] HermannHEMATOLOGY 2019-01-06 19:41:0020.1[facility] YwjwggiZPMTKQYBYR0845-08-26 19:41:87395Fxdcsmnh OxcbeqqEEUSESXQDH7962-30-28 19:41:0010.2[facility] HermannCARDIAC ENZYMES 2019-01-04 17:50:0098[facility] DhsrtmfNXXLNMWPBRAK4331-75-53 17:50:0012.0[facility] KkxpzkiAEORBUAZSDIM8405-17-09 17:50:0083[facility] LesfryrCBBYOOIDLUYS0187-15-47 17:50:0023[facility] NpzeqicOOVSAKWPKMLU9945-10-13 17:50:000.88[facility] [employer] MHYYHHNUQZEX2773-35-61 17:50:64107Cjhhnkil GeczdcnXLBUVCWTOLTT7204-87-55 17:50:004.0[facility] NtldturRELRLPCSHPFM3848-07-94 17:50:60557Ubfhbjyd [facility] VIQJDNFAFXNW6547-79-85 17:50:0025[facility] DwaxlgqFYMWXTVPUUQP4341-60-22 17:50:00 8.5[facility] SweecreQKSZGJHKXGRR4185-74-89 17:50:0066[facility] HermannHEMATOLOGY 2019-01-04 17:50:000.2[facility] SlcexgbJRKEHNGGIC5337-97-24 17:50:003.0[facility] PahfgquXLCDRLBGRL6083-87-05 17:50:001.0[facility] ChfrtekNUVIUTEQQC1254-15-79 17:50:001.0[facility] DprgtyoQEGIDMNGXV9096-64-85 17:50:000.0[facility] LKOQNUWTGM7723-43-01 17:50:009[facility] KygmhdfREYDSPZWRO6425-72-67 17:50:00 Normal (01/04/19 12:50 PM)[facility] WnmmnmlQDEFHRSZXM3789-27-67 17:50:001+ *ABN*(01/04/19 12:50 PM)[facility] JqqpkpmABZAWJPXPR4271-32-71 06:25:000.1[facility] ToygtxvNDKOBXKRYK2597-38-49 06:25:000.7[facility] FfdwhdhPCGMQBIEOS8805-19-44 06:25:000.2[facility] HermannPARATHYROID FEMHHZL6281-35-01 06:25:001.08[facility] HermannPARATHYROID XCJSABC9176-58-42 06:25:001.04[facility] HermannHEMATOLOGY 2018-12-31 07:09:003.0[facility] HermannCHEM GHGTB5602-37-69 09:20:002.1[facility] HermannCHEM XTFOX1262-17-73 09:20:002.7[facility] LqtfmpwKGZTXOVOOL7774-60-60 09:20:84956Effjxjqn IrrgqjfHMVKKXBXDO0882-84-70 09:20:000.1[facility] [employer] PARATHYROID IQTQEGV2593-83-79 09:20:001.08[facility] HermannPARATHYROID PROFILE 2018-12-30 09:20:001.10[facility] HermannCARDIAC SUFYQGX1534-24-02 05:04:000.09 [facility]annCHEM EXIGB5591-03-84 05:04:002.0[facility] HermannCHEM PANEL 2018-12-29 05:04:002.4[facility] IbqvuyoLCXUZGOBJF0257-25-61 05:04:00Normal (12/29/18 12:04 AM)[facility] VjaacubBKWENSGLGI0214-73-63 05:04:00 Test Item Value Reference Range Interpretation Comments INR (test code = INR) 1.02 1 0.85-1.17 [facility]IimcintREVNUNFJHW6184-43-97 05:04:00 Test Item Value Reference Range Interpretation Comments PT (test code = PT) 13.2 s 12.0-14.7 [facility]viewBgtfhtsKQDRMTMHPP2182-72-00 05:04:00 Test Item Value Reference Range Interpretation Comments PTT (test code = PTT) 31.0 s 22.9-35.8 [facility] AllianceFvxrjyzKFYLSOYRTB0388-23-17 05:04:71894Smrryrol HermannPARATHYROID TCLNWNR4483-67-21 05:04:001.10[facility] HermannPARATHYROID EBJNKIN3781-37-36 05:04:001.11[facility] HermannCARDIAC MYQSAPN7597-38-85 07:31:000.11[facility] HermannCHEM CQDVV9648-88-19 07:31:004.7[facility] HermannCHEM UJVSB3028-71-48 07:31:002.8[facility] HermannCHEM PEYMM7482-63-55 07:31:0036[facility] HermannCHEM CFHFM9751-40-92 07:31:0018[facility] HermannCHEM EBRQR7627-80-06 07:31:0073 [facility]annCHEM GGCVY4137-85-50 07:31:000.7[facility] HermannCHEM PANEL 2018-12-28 07:31:000.2[facility] HermannCHEM YKBKJ2783-93-31 07:31:000.5[facility] HermannCHEM ZJBQF1916-45-55 07:31:001.9[facility] HermannCHEM WPCTE4525-24-49 07:31:00 Test Item Value Reference Range Interpretation Comments A/G Ratio (test code = A/G Ratio) 1.5 1 0.7-1.6 [facility] AllianceMwxpukiQCPPXWZJFZ2825-30-63 07:31:001.0[facility] HermannHEMATOLOGY 2018-12-28 07:31:00 Test Item Value Reference Range Interpretation Comments INR (test code = INR) 1.13 1 0.85-1.17 [facility] AllianceZezfbfhMKPJUMGRVB2322-52-27 07:31:00 Test Item Value Reference Range Interpretation Comments PT (test code = PT) 14.3 s 12.0-14.7 [facility] PbmsilcJFLNLQYRHH3234-09-38 07:31:00 Test Item Value Reference Range Interpretation Comments PTT (test code = PTT) 35.5 s 22.9-35.8 [facility] HermannSPECIAL TVKIXBLNI4973-22-54 07:31:0011.1[facility]annURINE AND BSXSL5011-31-31 11:12:00Negative (12/27/18 6:12 AM)[facility] HermannCARDIAC FSFWNXX6671-12-47 05:26:000.06[facility] HermannCHEM MUYEG0295-51-23 05:26:004.7 [facility] HermannCHEM ZISVI0296-80-77 05:26:003.5[facility] HermannCHEM PANEL 2018-12-27 05:26:0030[facility] HermannCHEM JNSAH5254-24-90 05:26:0011[facility] HermannCHEM ZIRLQ6286-62-96 05:26:0055[facility] HermannCHEM XQACE4155-97-65 05:26:000.5[facility] HermannCHEM AILEG3248-47-02 05:26:000.1[facility] HermannCHEM PRBCG4410-50-55 05:26:000.4[facility] HermannCHEM LOLFV7381-52-07 05:26:001.2 [facility] HermannCHEM KZGVK5678-89-54 05:26:00 Test Item Value Reference Range Interpretation Comments A/G Ratio (test code = A/G Ratio) 2.9 1 0.7-1.6 [facility] FshgpieTGODHSXTGH6755-81-77 05:26:00 Test Item Value Reference Range Interpretation Comments PT (test code = PT) 15.8 s 12.0-14.7 [facility] KhqeyewJYQTOQBRCS4666-78-07 05:26:00 Test Item Value Reference Range Interpretation Comments INR (test code = INR) 1.29 1 0.85-1.17 [facility] AllianceXujhsihZAMQLJSZEL6130-95-60 05:26:00 Test Item Value Reference Range Interpretation Comments PTT (test code = PTT) 37.6 s 22.9-35.8 [facility] JwbktahWAWBPKOMJP8293-02-04 05:26:85970Khfgfqlg HermannCHEM PANEL 2018-12-26 05:48:005.1[facility] HermannCHEM ZLYDV8042-68-70 05:48:003.1[facility] HermannCHEM WMGVD0193-84-78 05:48:002.0[facility] HermannCHEM LGGXS0714-27-13 05:48:00 Test Item Value Reference Range Interpretation Comments A/G Ratio (test code = A/G Ratio) 1.6 1 0.7-1.6 [facility]annCHEM HBHKA2971-66-44 05:48:0051[facility] HermannCHEM PANEL 2018-12-26 05:48:0016[facility] HermannCHEM KVKGC6460-06-60 05:48:0088[facility] HermannCHEM PHUGV5920-62-57 05:48:000.4[facility] HermannCHEM TMULN0878-66-20 05:48:000.2[facility] HermannCHEM HAQQJ7847-13-87 05:48:000.2[facility]annURINE AND DQNIN1470-36-14 19:16:00Light Yellow *NA*(12/25/18 2:16 PM)[facility] [employer] [facility] URINE AND CMKKO1217-96-82 19:16:00Slight *ABN*(12/25/18 2:16 PM)[facility] [employer] URINE AND ECEVG9521-01-01 19:16:00 Test Item Value Reference Range Interpretation Comments UA Spec Grav (test code = UA Spec 1.013 1 Grav) [facility]annURINE AND XHWJX4701-97-50 19:16:00 Test Item Value Reference Range Interpretation Comments UA pH (test code = UA pH) 5.0 1 5.0-8.0 [facility]UR[facility] AND RGUUC4589-00-25 19:16:00Negative *NA*(12/25/18 2:16 PM) [facility]UR[facility] AND YRLGG7026-19-33 19:16:00Negative (12/25/18 2:16 PM) [facility] AND BLXKO9104-49-41 19:16:00<1.0[facility]annUR[facility] AND EGLGR4809-79-54 19:16:00Negative (12/25/18 2:16 PM)[facility]UR[facility] AND UDQCQ8957-09-23 19:16:00Negative (12/25/18 2:16 PM)[facility]UR[facility] AND UNMEQ6679-58-93 19:16:004[facility]annURINE AND ZEQLF4711-08-46 19:16:001 [facility]annCHEM TNCIL3536-89-85 08:58:001.8[facility] HermannHEMATOLOGY 2018-12-25 08:58:00 Test Item Value Reference Range Interpretation Comments Thrombin Time (test code = Thrombin 17.7 s 15.0-21.2 Time) [facility] PkgyzcfEPSCOMRZSA4386-89-00 08:58:002.84[facility] HermannBACTERIAL - STIFQYOX2254-65-83 05:22:00Negative (12/25/18 12:22 AM)[facility] HermannCHEM PANEL 2018-12-25 05:22:002.3[facility] HermannDRUG JDMELZ0071-00-49 05:22:00Negative *NA*(12/25/18 12:22 AM)[facility] HermannDRUG PLFGQB1029-93-47 05:22:00Negative *NA*(12/25/18 12:22 AM)[facility] HermannDRUG TQQFCO5481-72-89 05:22:00Positive *ABN*(12/25/18 12:22 AM)[facility] HermannDRUG GTKAAX5189-24-16 05:22:00Negative *NA*(12/25/18 12:22 AM)[facility] HermannDRUG PWTTLV2884-74-31 05:22:00Negative *NA*(12/25/18 12:22 AM)[facility] HermannDRUG VGYKZU2518-60-24 05:22:00Positive *ABN*(12/25/18 12:22 AM)[facility] HermannDRUG CTXPJQ9822-91-06 05:22:00Negative *NA*(12/25/18 12:22 AM)[facility] HermannDRUG LJORYP9080-30-05 05:22:00See Note (12/25/18 12:22 AM)[facility] JyfnzojXMUDCLHMPY9592-94-29 05:22:00Negative 7(12/25/18 12:22 AM)[facility] IsahfbpDBPXJHXGGJ2937-91-45 05:22:00 Test Item Value Reference Range Interpretation Comments Pat Od Value (test code = Pat Od 0.215 1 Value) [facility] KaccyubPNOMBTKAVR0498-40-86 05:22:00 Test Item Value Reference Range Interpretation Comments Pos CO Value (test code = Pos CO 0.400 1 Value) [facility]UR[facility] AND BTMOW0007-67-36 05:22:00Amber *ABN*(12/25/18 12:22 AM) [facility]UR[facility] AND HVUFF6355-79-93 05:22:00Slight *ABN*(12/25/18 12:22 AM) [facility]UR[facility] AND YRTKE1171-72-43 05:22:00 Test Item Value Reference Range Interpretation Comments UA Spec Grav (test code = UA Spec 1.029 1 Grav) [facility]UR[facility] AND ZUNTE1062-73-15 05:22:00 Test Item Value Reference Range Interpretation Comments UA pH (test code = UA pH) 5.0 1 5.0-8.0 [facility]UR[facility] AND GGHXW9962-96-04 05:22:00Negative *NA*(12/25/18 12:22 AM)[facility]UR[facility] AND HSRKE1067-98-61 05:22:00Moderate *ABN*(12/25/18 12:22 AM)[facility]annUR[facility] AND ZCIUQ0477-16-47 05:22:004.0[facility] [employer] [facility] URINE AND EFKBP0157-76-61 05:22:00Negative (12/25/18 12:22 AM)[facility]INE AND TNUAR6743-93-99 05:22:00Negative (12/25/18 12:22 AM)[facility] [employer] [facility] URINE AND XNWJC3852-08-59 05:22:003[facility]annURINE AND FSHCA6209-67-80 05:22:0037[facility]annURINE AND IPPDJ5585-11-85 05:22:0023[facility] URINE AND RNBTL2596-83-62 05:22:001[facility] [employer] [facility] VANCOMYCIN:SUSC:PT:ISOLATE:ORDQN:KGH6933-74-28 05:22:00Staphylococcus aureus [facility] BANK AHSJGFM9145-60-01 23:54:00Negative 5(12/24/18 6:54 PM) [facility]annCARDIAC PMXTIRK0703-44-86 23:54:0062[facility] HermannCHEM PANEL 2018-12-24 23:54:0027.0[facility] HermannCHEM MCNPG2046-78-23 23:54:005.0[facility] HermannCHEM ZFGAX2623-57-13 23:54:0011.80[facility] HermannCHEM SLLND1671-12-44 16:13:0076[facility] HermannCHEM OHGOM4256-99-64 16:13:000.79[facility] HermannCHEM WJWBP0571-11-54 16:13:58806Ryyetlwn HermannCHEM HWXCI5925-07-95 16:13:004.2 [facility]annCHEM MSNZV1793-25-71 16:13:0019[facility] HermannCHEM PANEL 2018-11-29 16:13:009.3[facility] HermannCHEM ESUKO3531-66-42 16:13:49801Yesfmjrj HermannCHEM DZSTN7369-27-94 16:13:0030[facility] HermannCHEM KINHF0579-45-82 16:13:86480Jvtkojtu HermannCHEM VTILL5842-95-85 16:13:0010.2[facility] URINE AND NSGZJ5230-45-25 15:09:00None Seen (11/29/18 10:09 AM)[facility] URINE AND KUILF0606-65-21 15:09:000.2[facility]annURINE AND JDDVG2958-30-87 15:09:00Negative (11/29/18 10:09 AM)[facility]UR[facility] AND KVIMF3752-16-58 15:09:00Negative (11/29/18 10:09 AM)[facility]UR[facility] AND VGKZB1858-89-36 15:09:00Small *ABN*(11/29/18 10:09 AM)[facility]UR[facility] AND YXCTR0382-50-09 15:09:00Negative (11/29/18 10:09 AM)[facility]UR[facility] AND CDYDX6489-42-41 15:09:00 Test Item Value Reference Range Interpretation Comments UA pH (test code = UA pH) 5.5 1 5.0-8.0 [facility] XBLWV8034-40-44 15:09:00Negative *NA*(11/29/18 10:09 AM) [facility] AND NHIKW2276-58-77 15:09:00Negative (11/29/18 10:09 AM) [facility] AND JZGTM5059-06-47 15:09:00Yellow *NA*(11/29/18 10:09 AM) [facility]UR[facility] AND IEODF7678-57-59 15:09:00Slight Cloudy (11/29/18 10:09 AM)[facility]annURINE AND WRKKU6721-06-83 15:09:00>=1.030 *ABN*(11/29/18 10:09 AM)Jan Azul[[facility]] CMP W/QGDN4301-36-31 12:32:00 Test Item Value Reference Range Interpretation [...] 74 {ML/MIN/1.7} > OR = 60 N OMANI (test code = eGFR NON-) eGFR 86 {ML/MIN/1.7} > OR = 60 N OMANI (test code = eGFR ) BUN/CREATININE NOT [...] mg/dl 0.2-1.2 N Normal (test code = 20154-7) ALKALINE 156 u/l 33-130 PHSPHATASE (test code = ALKALINE PHSPHATASE) AST; Normal (test 34 u/l 10-35 N code = 1916-6) ALT; Above High 71 u/l 6-29 SPECIMEN REC EIVED DATE Threshold (test AND TIME: 6652902334 code = 1742-6) [facility]] CBC (INCLUDES DIFF/PLT)2018-11-18 12:32:00 Test Item Value Reference Range Interpretation Comments WHITE BLOOD CELL 12.2 3.8-10.8 COUNT (test code = {Thousand/u} WHITE BLOOD CELL COUNT) RED BLOOD CELL 4.89 3.80-5.10 N COUNT (test code = {Million/uL} RED BLOOD CELL COUNT) HEMAGLOBIN; Normal 15.4 g/dl 11.7-15.5 N (test code = 55978-4) HEMATOCRIT; Above 45.8 % 35.0-45.0 High Threshold (test code = 4544-3) MCV; Normal (test 93.7 fL 80.0-100.0 N code = 787-2) MCHC; Normal (test 33.6 g/dl 32.0-36.0 N code = 74087-5) RDW; Normal (test 14.4 % 11.0-15.0 N code = 788-0) PLATELET COUNT; 177 140-400 N Normal (test code {Thousand/u} = 777-3) MPV; Normal (test 11.0 fL 7.5-12.5 N code = 94898-6) ABSOLUTE 86478 4152-1567 NEUTROPHILS (test {cells/uL} code = ABSOLUTE NEUTROPHILS) ABSOLUTE 4168 895-7710 N LYMPHOCYTES (test {cells/uL} code = ABSOLUTE [...] Normal 1.7 % N (test code = 74650-1) EOSINOPHILS; 0.1 % N Normal (test code = 85544-0) BASOPHILS; Normal 0.2 % N (test code = 49181-9) COMMENT(S) (test See Comment Review of p eripheral code = COMMENT(S)) smear con firmsautomated results.SPECIME N RECEIVED DATE A ND TIME: [facility] Chest 2 views [id number] 10:03:00 PROCEDURE: Chest Radiograph.Clinical Indication: Pneumonia.Comparison: Chest radiograph 09/17/2018.FINDINGS:The chest shows minimal subsegmental atelectasis at the left lung base. Nofocal consolidationis identified. There is left-sided [employer] shunt tubing. Thereare calcified granulomata in the upper lobes.The cardiac silhouette is upper limits of normal in size. Degenerative changeinvolves the thoracic spine and shoulders. An old distal right claviclefracture is suspected.IMPRESSION:1. Minimal left lower lobe subsegmental atelectasis.SL:[id number]--Jghq by: Eleazar Hamilton MDDictated Date/time: 11/18/18 10:49Electronically Signed by: Eleazar Hamilton MD 11/18/1909:52FINAL REPORTUnMc[facility] Bone Density DXA [employer] [id number] 10:53:00BONE DENSITY ASSESSMENT: 10/21/2018CLINICAL DATA: Post menopausal [...] was performed 10/21/2018 on the AP L2- B9wkqgrc of spine using a Hologic unit. The [...] careprovider is recommended.This exam was interpreted at [id number] for CRISPIN Riojas 15. Betzy Caba M.D., ms/elke:10/21/2018 12:45:40 Soaker Helper(s): Hailey Cornejo [facility]--Read by: Betzy Caba MDDictated Date/time: 10/21/18 12:45Electronically Signed by: Betzy Caba MD 10/22/1911:45FINAL REPORTUnAmerican Fork Hospital JtmysdwltsAKSWEDROMB3207-01-94 15:20:0010.6[facility] DtwnwjlPRGJQVTFEC2493-48-51 15:20:0091.5[facility] TzobcghIRUIPRSTQH9101-49-65 15:20:0042.9[facility] UPKLZNXQWT6265-21-79 15:20:00 Test Item Value Reference Range Interpretation Comments MCH (test code = MCH) 31.0 pg 27.0-31.0 [facility] XphmwufDSQIIHQTGM5907-30-17 15:20:0014.1[facility] HermannHEMATOLOGY 2018-09-23 15:20:0033.8[facility] KbblvsbQGUKHEBXVK5295-43-98 15:20:27219Umnnnhdn WweqfopQYBDQKHNAU1671-22-08 15:20:0014.5[facility] XdtwpgdQVBRNFGSUE3129-69-76 15:20:0010.8[facility] GmejjkdLZXTSZSFAC8371-92-78 15:20:004.69[facility] [employer] KTJXAPMXTG4020-04-88 15:20:000.1[facility] RbettbfISGPIPPZWZ1779-63-66 15:20:00 70.7[facility] UcctcraBJBTNCNXOO4073-78-03 15:20:0021.8[facility] HermannHEMATOLOGY 2018-09-23 15:20:002.4[facility] TaxwyiqUYJNKGXRXZ0375-18-75 15:20:007.6[facility] QsxblbeUUPCGTSLVG6291-77-15 15:20:000.7[facility] WarmmqoMVYCUSHYKZ7142-44-16 15:20:006.7[facility] FzcpvxaDDWWEKKHIJ7990-65-95 15:20:000.3[facility] [employer] DYPYVNAJPV1501-58-63 15:20:000.5[facility]annCHEM YFMKO5448-00-68 10:38:002.2 [facility] DCLSH8916-17-03 10:38:003.0[facility]annCHEM PANEL 2018-09-23 10:38:0069[facility]annCHE[facility] AEGLF9093-69-65 10:38:0028[facility]annCHE[facility] RVKEA2747-00-53 10:38:94998Ozsmxosq [facility]annCHEM KBGTJ0941-06-47 10:38:003.8[facility]annCHE[facility] DQZXF1767-80-05 10:38:13229Ndqieiup [facility]annCHE[facility] EOUMS4133-21-35 10:38:009.8[facility]annCHE[facility] SBWHC1847-12-58 10:38:008.1 [facility] PDNWL4869-70-25 10:38:0023[facility]annCHEM PANEL 2018-09-23 10:38:000.86[facility]annCHE[facility] MMCFZ1438-59-40 10:38:0043[facility] QptnulrOXGPAPRAAW3328-66-41 10:38:0014.6[facility] CkijaagHCGBNEERTK3289-46-24 10:38:0044.7[facility] HkxgydiIAKZRPYMOF8404-65-52 10:38:004.85[facility] [employer] NBHLJVQKVH4627-08-45 10:38:0014.1[facility] EokgvnlRXYGKNTPKF7527-58-60 10:38:00 10.9[facility] TuanwcnFEXALNRHAB0554-93-28 10:38:0014.2[facility]annHEMATOLOGY 2018-09-23 10:38:04496Ioocaecs RmamwwqNLDNKYHLRD6306-89-92 10:38:0092.2[facility] YxfrvxtSBBLXGXHLC1327-13-97 10:38:00 Test Item Value Reference Range Interpretation Comments MCH (test code = MCH) 30.1 pg 27.0-31.0 [facility] IddtfhqBXDZGNKIFV6471-83-01 10:38:0032.6[facility] HermannPARATHYROID VNMQOYM2263-20-52 10:38:001.05[facility] HermannPARATHYROID OEHDACQ3008-22-78 10:38:001.00[facility]annCHEM OIEVM3110-94-77 06:22:000.6[facility]annCHE[facility] ACNBI8777-68-39 06:22:0035[facility]annCHE[facility] MOOOL7668-51-69 06:22:0095 [facility] IQXFU2937-39-67 06:22:0047[facility]annCHEM PANEL 2018-09-22 06:22:0052[facility]annCHE[facility] XZDVG8978-50-48 06:22:002.3[facility]annCHE[facility] URVNQ7502-31-43 06:22:007.1[facility]annCHE[facility] UVVKV5748-15-73 06:22:0026[facility]annCHE[facility] ZWEEN3271-18-63 06:22:008.1[facility]annCHEM KABAS2029-31-54 06:22:46708Bqofsoqu [facility]annCHEM HNZCX2534-36-62 06:22:004.3 [facility]annCHE[facility] SGSWM9040-08-97 06:22:93580Ifgnzlbt HermannCHEM PANEL 2018-09-22 06:22:001.07[facility]annCHEM UKMTH1914-98-22 06:22:64940Xzpsducn [facility]annCHEM VBDOF7385-10-34 06:22:0029[facility]annCHE[facility] ERSFR5637-81-26 06:22:004.8[facility]annCHE[facility] ARSJU9667-06-56 06:22:00 Test Item Value Reference Range Interpretation Comments A/G Ratio (test code = A/G Ratio) 0.5 1 0.7-1.6 [facility] DSVJO1945-98-46 06:22:00 Test Item Value Reference Range Interpretation Comments B/C Ratio (test code = B/C Ratio) 27 1 6-25 [facility]CHE[facility] XREHG4658-95-20 06:22:0011.3[facility]annHEMATOLOGY 2018-09-22 06:22:006.5[facility] IrigxvjSLNTLBWIDJ4472-12-11 06:22:000.1[facility] YbchfoeUWFWOOKWNW9844-86-74 06:22:000.2[facility] GcsjdoaXSOXBIAPRU2097-02-02 06:22:0073.8[facility] FmhgnabEIEAVUQRQG1259-61-34 06:22:0019.4[facility] FSNWQGIJLT7589-42-66 06:22:006.0[facility] KhmzjeoIVUNMHSJGF5438-92-53 06:22:001.6 [facility] RyexwybRPBYGULZWO4942-76-49 06:22:000.5[facility]annHEMATOLOGY 2018-09-22 06:22:0011.3[facility] TjnsdkhYLTJRFGFMZ5584-87-52 06:22:0033.1[facility] LbkciimHIZCQFVUMK5092-71-43 06:22:0014.0[facility] PqkioqcGBZXFMLRLV3100-96-18 06:22:84952Zmgerigt RrazqrmUCHAUSRZWH1014-50-48 06:22:0093.1[facility] [employer] ONCKUZWWCU5639-72-23 06:22:0044.2[facility] YmdjwwiJUCSPVKXRC0472-62-65 06:22:00 Test Item Value Reference Range Interpretation Comments MCH (test code = MCH) 30.8 pg 27.0-31.0 [facility] KgrpjplKEMPAUNBCN8283-82-56 06:22:004.74[facility]annHEMATOLOGY 2018-09-22 06:22:008.1[facility] NhlgqkaCQLKGXPJFS5349-89-24 06:22:0014.6[facility]annCHEM CVWFE7846-99-47 07:00:003.3[facility]annCHEM OXUXZ7006-92-71 07:00:002.0[facility]annCHEM PQCUD5911-79-66 07:00:0070[facility]annCHE[facility] ZQTDZ9560-62-58 07:00:008.7[facility]annCHE[facility] QTBIV6038-60-65 07:00:000.84 [facility]annCHE[facility] XIDOW9812-95-61 07:00:87077Sihebdlv HermannCHEM PANEL 2018-09-18 07:00:0032[facility]annCHEM BQCGI5402-96-88 07:00:08335Fzetaheo HermannCHEM FNIUR8032-73-41 07:00:0032[facility]annCHEM JCGFR0894-02-97 07:00:003.9[facility]annCHEM LTFZI9948-51-81 07:00:46697Hcxsmpjn [facility]annCHEM NWBBC3051-39-30 07:00:007.9[facility] IlybacwHKUREEXCJD3682-77-60 07:00:000.7 [facility] VwpgceeRMWSNGCVOK9052-97-50 07:00:001.7[facility]annHEMATOLOGY 2018-09-18 07:00:006.0[facility] AvwhkakIDFCWCMXBQ9193-52-66 07:00:000.1[facility] OtashwfUKNZROGCYE9352-26-33 07:00:008.5[facility] TlqvekzEMAFCALRUL9803-55-40 07:00:0020.3[facility] BgykyfqTMCIQAKXSD7706-09-81 07:00:0071.1[facility] EWUVZDESJF8709-05-46 07:00:0033.8[facility] DxmupkzHRXNRNKCRX0333-60-48 07:00:00 14.1[facility] MmkdschPEBEHKZARN1671-89-85 07:00:00 Test Item Value Reference Range Interpretation Comments MCH (test code = MCH) 31.2 pg 27.0-31.0 [facility] EvqtmraVNRBYAYPSK6974-11-81 07:00:0092.2[facility]annHEMATOLOGY 2018-09-18 07:00:0044.7[facility] RlvdxmjPRVFQAIAGO8871-88-53 07:00:004.85[facility] KrlzljdWSDIPTBDRS6906-49-56 07:00:008.5[facility] EjqppxlDZZXKKNDFU8211-27-25 07:00:0015.1[facility] HjdvcynOJUGGCLOZJ6778-76-47 07:00:0011.8[facility] SSJODNZIGG0410-58-35 07:00:0081[facility] HermannPARATHYROID WRACJLU8547-15-41 07:00:001.09[facility] HermannPARATHYROID ZEPHIUQ9243-15-75 07:00:001.09[facility] HermannCHEM XZXEO5842-48-70 06:12:002.0[facility] HermannCHEM MCOTY6316-81-89 06:12:008.6[facility]annCHEM ULUEM3891-98-87 06:12:006.4[facility] HermannCHEM TIELB9572-86-97 06:12:0070[facility]annCHEM NREWL8288-26-19 06:12:003.4 [facility]annCHEM BMGWN5152-99-70 06:12:97493Ylsuggck HermannCHEM PANEL 2018-09-17 06:12:61255Ezolvkap HermannCHEM JWMBA7992-81-64 06:12:000.84[facility] HermannCHEM CDIAE7579-84-10 06:12:0035[facility]annCHEM FKQEN2631-33-55 06:12:85867Neazwlub HermannCHEM XNFIK9150-81-13 06:12:0037[facility]annCHEM NKGSG2290-76-73 06:12:002.6[facility] NmddyzaHNKCECGAEZ8329-73-14 06:12:0071 [facility] VpziisfUXXGDUPPHF8494-56-09 06:12:0033.1[facility] HermannHEMATOLOGY 2018-09-17 06:12:0010.7[facility] DzwzluxYHWMCOMZMV0460-69-41 06:12:0014.1[facility] LajlonnTMAASNSQQK2617-91-26 06:12:00 Test Item Value Reference Range Interpretation Comments MCH (test code = MCH) 30.4 pg 27.0-31.0 [facility] QelsoyuXFLKIFDYQU0993-05-79 06:12:009.7[facility] HermannHEMATOLOGY 2018-09-17 06:12:0092.0[facility] ZxuycbdIKFBIHJNUC8552-09-98 06:12:0044.7[facility] KzkpaczBDCBGSVZBA8679-56-49 06:12:004.86[facility] PlangpkERMJBKUAUL4131-11-17 06:12:0014.8[facility] HodifvzVABJVCENFF4916-01-57 06:12:001.4[facility] KYNLRFNQAD4839-53-38 06:12:007.6[facility] SmlfymcBTRKVAUKLC3116-84-41 06:12:007.0 [facility] TnbwnwgYAWOUBUHHK6090-77-44 06:12:000.5[facility] HermannHEMATOLOGY 2018-09-17 06:12:0014.4[facility] KualrazVEYKWGYAAJ7896-37-62 06:12:000.7[facility] RmdxpkuOIZNLPITHK0361-63-93 06:12:0078.1[facility] HermannPARATHYROID PROFILE 2018-09-17 06:12:001.11[facility] HermannPARATHYROID KEHLENM9051-18-18 06:12:00 1.14[facility] HermannCHEM PZOYN7720-35-99 05:36:002.1[facility] HermannCHEM PANEL 2018-09-16 05:36:002.0[facility] JoaquuyIMAYLXLCRVRW6430-49-26 05:36:008.1[facility] CrytpfvSIWOVKUJBNMT9068-85-41 05:36:0047[facility] BavocfmRONFUZNGDXTH2340-22-31 05:36:0033[facility] TvcsbpdXVJZNIMGKRPI5275-50-04 05:36:008.4[facility] [employer] XWBPRDBXSHMX6536-89-70 05:36:004.1[facility] KyyanmgYAGJDONWRDCU0320-40-00 05:36:58457Eniirzwh ClaqottHEZNWYZHYPJZ4632-34-99 05:36:29335Cigarnax [facility] XONEQJMBVIQD2823-09-99 05:36:0037[facility] ZygydfgRFRFCOBNZOOO7449-40-82 05:36:00 1.17[facility] ViuaqzcTKESQPMJZHSF1654-39-39 05:36:34674Vjsszkne HermannHEMATOLOGY 2018-09-16 05:36:0077[facility] SvtgbtmGDFBWFLKMX8178-68-62 05:36:0033.5[facility] UynorloANGWQIAVYB9975-21-61 05:36:0014.2[facility] FhfnwknYQEZSQJRHS4243-66-81 05:36:0011.1[facility] SpgfqzgSDCCYEEHIB9692-31-26 05:36:0092.4[facility] YOVHBLRSOT5265-98-92 05:36:00 Test Item Value Reference Range Interpretation Comments MCH (test code = MCH) 31.0 pg 27.0-31.0 [facility] IfwzgoeEVYYGETVQQ4426-29-11 05:36:0041.6[facility] HermannHEMATOLOGY 2018-09-16 05:36:004.50[facility] PixuhlsAUUCHZMQKR2157-97-52 05:36:0014.0[facility] EbljrluXRXGDYAUIH6729-36-45 05:36:0010.6[facility] YxwcxulRJEQOVPMYS8623-69-81 05:36:008.8[facility] AprteciXWIFEHGKMD2322-80-46 05:36:000.7[facility] [employer] RZBCMEODDL0899-45-58 05:36:000.3[facility] QjfiftzNLBMONATMW9728-91-28 05:36:001.0 [facility] FzkiagsZGHLPASBYN0713-70-37 05:36:0083.3[facility] HermannHEMATOLOGY 2018-09-16 05:36:009.9[facility] NknqiviOUVZGAVTGO5429-70-16 05:36:006.5[facility] HermannPARATHYROID XIUTFBN6051-71-66 05:36:001.13[facility] HermannPARATHYROID SBUSSMQ9789-33-01 05:36:001.13[facility]UR[facility] AND EHDIT8685-77-54 22:04:00 3[facility] DRQAY6930-96-02 22:04:001[facility] LKWAI6050-74-85 22:04:00 Test Item Value Reference Range Interpretation Comments UA pH (test code = UA pH) 5.5 1 5.0-8.0 [facility] OJLVY9413-39-64 22:04:74751 *ABN*(09/15/18 5:04 PM) [facility] WNEFV1694-95-92 22:04:00Negative *NA*(09/15/18 5:04 PM) [facility] CAPLZ6471-74-52 22:04:005[facility] DYUIV3664-57-24 22:04:004[facility] JNXPM3036-83-02 22:04:00 Negative (09/15/18 5:04 PM)[facility] AQNPO1428-77-45 22:04:00 Negative (09/15/18 5:04 PM)[facility] PVDSC1480-19-96 22:04:000.2 [facility] KTTFG4263-20-64 22:04:00Negative (09/15/18 5:04 PM) [facility] ITOLL4055-29-98 22:04:00Negative *NA*(09/15/18 5:04 PM) [facility] FFQHX0737-26-70 22:04:00 Test Item Value Reference Range Interpretation Comments UA Spec Grav (test code = UA Spec 1.025 1 Grav) [facility] YZDLH0182-19-44 22:04:00Clear (09/15/18 5:04 PM) [facility] YYWRQ2410-51-50 22:04:00Yellow *NA*(09/15/18 5:04 PM) [facility] WhveuczHYKBXGCGYV8630-67-69 17:20:00<1.0[facility] HermannBACTERIAL - QYZCFUHY2181-40-97 16:23:00Negative (09/14/18 11:23 AM)[facility] HermannIMMUNOLOGY 2018-09-14 14:09:001.25[facility] PqeiooqDAZLVTKQZM6679-30-40 14:09:0042[facility] JpzjodgUOWJRJUWXX8663-24-09 08:47:000.1[facility] JkuwcpiOYGVBMKLNF1186-16-44 08:47:000.1[facility] WfpyyfpIGLCCKUSZT6457-30-85 08:47:001.1[facility] [employer] ASCXXBNRNA1157-29-40 05:36:000.1[facility] KmwrbygUAHXPSRBYZ5945-29-15 05:36:000.1 [facility] UbjdiwbFUIRCYBCIE4416-66-22 05:36:000.9[facility]UR[facility] STOOL 2018-09-12 16:27:00<1.0[facility] LCSGK9955-71-95 16:27:00 Trace *ABN*(09/12/18 11:27 AM)[facility] PKVJR3043-77-62 16:27:00 Small *ABN*(09/12/18 11:27 AM)[facility] NUWNN1753-04-33 16:27:00 Negative *NA*(09/12/18 11:27 AM)[facility] QJJHM3788-53-20 16:27:00Slight *ABN*(09/12/18 11:27 AM)[facility] ZGMVH9458-11-13 16:27:00 Test Item Value Reference Range Interpretation Comments UA pH (test code = UA pH) 5.0 1 5.0-8.0 [facility] BPZEE5281-38-30 16:27:00 Test Item Value Reference Range Interpretation Comments UA Spec Grav (test code = UA Spec 1.018 1 Grav) [facility] LXWTC2143-78-53 16:27:00Yellow *NA*(09/12/18 11:27 AM) [facility] ACKFF5932-75-24 16:27:004[facility] ODTGB5978-66-72 16:27:004[facility] NZHFS2662-36-34 16:27:00 Negative (09/12/18 11:27 AM)[facility] AIUGQ7073-71-47 16:27:001 [facility] WXDGE1220-51-36 16:27:00Negative (09/12/18 11:27 AM) [facility]annCHEM NCZRK0976-53-45 09:34:000.7[facility] HermannCHEM PANEL 2018-09-12 09:34:42449Bczbhpvm HermannCHEM WIXJV3691-70-65 09:34:008.3[facility] HermannCHEM LWWCS8369-54-18 09:34:0025[facility] HermannCHEM AMYVX8565-72-54 09:34:0034[facility]annCHEM FUTFN2939-73-29 09:34:002.7[facility]annCHEM NWNWK5786-22-46 09:34:005.6[facility]annCHEM YCKHC6971-77-46 09:34:00 Test Item Value Reference Range Interpretation Comments B/C Ratio (test code = B/C Ratio) 9 1 6-25 [facility]annCHEM GFHHQ3363-77-58 09:34:00 Test Item Value Reference Range Interpretation Comments A/G Ratio (test code = A/G Ratio) 0.5 1 0.7-1.6 [facility] GgkydlfJFMMRFPKQU1095-56-83 09:34:00 Test Item Value Reference Range Interpretation Comments PTT (test code = PTT) 31.6 s 22.9-35.8 [facility] StndjurLOGXIFSQBW2567-62-92 09:34:00 Test Item Value Reference Range Interpretation Comments PT (test code = PT) 14.2 s 12.0-14.7 [facility] LnkvybgNRFIUPEPHP3815-93-16 09:34:00 Test Item Value Reference Range Interpretation Comments INR (test code = INR) 1.12 1 0.85-1.17 [facility] TnbkwbyEOBYXKYTHD9703-79-20 09:34:002.4[facility] HermannHEMATOLOGY 2018-09-12 09:34:000.2[facility] GthoossDRBDHFZGEM0135-56-11 09:34:000.2[facility] HermannCHEM DGWWM7754-04-20 07:19:00<0.1[facility] HermannCHEM FEFSZ0098-33-79 07:19:00 Test Item Value Reference Range Interpretation Comments A/G Ratio (test code = A/G Ratio) 0.5 1 0.7-1.6 [facility]annCHEM VCRZR7563-09-82 07:19:0040[facility] HermannCHEM PANEL 2018-09-11 07:19:0031[facility] HermannCHEM GLJYS9099-13-95 07:19:24119Lavtucxr HermannCHEM TEDCV7855-80-22 07:19:000.8[facility] HermannCHEM GBZUF4985-08-59 07:19:007.3[facility] HermannCHEM LXCTM0752-99-38 07:19:002.5[facility]annCHEM VVXNG8827-68-45 07:19:004.8[facility] HermannBLOOD BANK XBFOPNO1038-89-39 22:06:00 Negative (09/10/18 5:06 PM)[facility]annCHEM EQKJY4874-07-44 22:06:94300 [facility]annCHEM KFNDF7323-00-07 22:06:000.8[facility] HermannCHEM PANEL 2018-09-10 22:06:0045[facility] HermannCHEM ELCOX1486-36-48 22:06:0035[facility] HermannCHEM LHUDN7114-95-34 22:06:007.1[facility]annCHEM BTGYT4884-59-97 22:06:002.9[facility] HermannCHEM LQDXY9372-19-34 22:06:00 Test Item Value Reference Range Interpretation Comments B/C Ratio (test code = B/C Ratio) 11 1 6-25 [facility] MAKJK3786-28-43 22:06:00 Test Item Value Reference Range Interpretation Comments A/G Ratio (test code = A/G Ratio) 0.7 1 0.7-1.6 [facility]annCHE[facility] XDUXI3807-43-88 22:06:004.2[facility]annHEMATOLOGY 2018-09-10 22:06:00Negative 1(09/10/18 5:06 PM)[facility] 2018-09-10 22:06:00 Test Item Value Reference Range Interpretation Comments Pat Od Value (test code = Pat Od 0.127 1 Value) [facility] AllianceDmohjelXIKJKHRMUP0280-98-03 22:06:00 Test Item Value Reference Range Interpretation Comments Pos CO Value (test code = Pos CO 0.400 1 Value) [facility] AllianceZdjncfiZZUDAAZLBU7432-95-12 22:06:00 Test Item Value Reference Range Interpretation Comments INR (test code = INR) 1.08 1 0.85-1.17 [facility] AllianceQcqxrtlZEVIJFGCKS3548-00-55 22:06:00 Test Item Value Reference Range Interpretation Comments Thrombin Time (test code = Thrombin 19.1 s 15.0-21.2 Time) [facility]oaazVSHPRFDIFF5210-04-17 22:06:001.22[facility] HermannHEMATOLOGY 2018-09-10 22:06:77093Gnroyznw IutphyuDXHESLZYDO5670-80-74 22:06:00 Test Item Value Reference Range Interpretation Comments PTT (test code = PTT) 30.3 s 22.9-35.8 [facility] BsemdrhIGYHEPKJQJ0163-91-21 22:06:00 Test Item Value Reference Range Interpretation Comments PT (test code = PT) 13.8 s 12.0-14.7 [facility] YoefotpXNLIVDDKRR6769-67-06 22:06:62705.0[facility]UR[facility] AND FQADX1402-69-79 22:06:00Marked *ABN*(09/10/18 5:06 PM)[facility] TWZLN3324-73-08 22:06:00Yellow *NA*(09/10/18 5:06 PM)[facility] SQHQI2442-56-48 22:06:00 Test Item Value Reference Range Interpretation Comments UA pH (test code = UA pH) 6.0 1 5.0-8.0 [facility] LMCVS3584-88-05 22:06:00Trace *ABN*(09/10/18 5:06 PM) [facility] NNEFE6842-33-65 22:06:00Negative *NA*(09/10/18 5:06 PM) [facility] QMERV1864-60-96 22:06:00Trace *ABN*(09/10/18 5:06 PM) [facility] EXULV7801-66-98 22:06:00<1.0[facility] GMMYJ9157-49-43 22:06:00Small *ABN*(09/10/18 5:06 PM)[facility] ACLCO5187-87-42 22:06:00Negative (09/10/18 5:06 PM)[facility] UXYYX7958-88-86 22:06:00 Test Item Value Reference Range Interpretation Comments UA Spec Grav (test code = UA Spec 1.012 1 Grav) [facility] JMNQS7742-93-84 22:06:0019[facility] FFTCH5950-20-35 22:06:001[facility] PtkzdigRTDLNBJWBV6385-38-38 14:47:000.0 [facility] ZoliahfLBVSNUCSWH2322-97-27 14:47:000.0[facility] HermannIMMUNOLOGY 2018-09-10 14:47:14621.0[facility] EaajxuoUBNWVKKAMZ3037-40-72 16:20:0020[facility] PeuwegiBDAELRQDWP5050-35-79 16:20:005.2[facility] StryvtzOEFKKZXUPN7138-06-19 16:51:00 Test Item Value Reference Range Interpretation Comments PTT (test code = PTT) 32.0 s 22.9-35.8 [facility] JmtxdlyYVLOLKHZRZ0232-76-20 16:51:00 Test Item Value Reference Range Interpretation Comments PT (test code = PT) 13.5 s 12.0-14.7 [facility] HeujtzqFXIBZVANWO3081-15-72 16:51:00 Test Item Value Reference Range Interpretation Comments INR (test code = INR) 1.05 1 0.85-1.17 [facility] BnnpzpnHPLJGHIZTBSP7623-54-58 16:46:0015.8[facility] HermannELECTROLYTES 2018-09-08 16:46:00 Test Item Value Reference Range Interpretation Comments B/C Ratio (test code = B/C Ratio) 16 1 6-25 [facility] KiufsyrQBCUNRRGJOLN9544-12-34 16:46:004.2[facility] HermannELECTROLYTES 2018-09-08 16:46:00 Test Item Value Reference Range Interpretation Comments A/G Ratio (test code = A/G Ratio) 0.7 1 0.7-1.6 [facility] TjqopdrJPGKXYPABHXA6310-64-13 16:46:52004Igzvcexd HermannELECTROLYTES 2018-09-08 16:46:003.8[facility] UtoflmlXIJXBQPDPXQM8536-34-93 16:46:06522Xibngcxq QlaymtiQBXEYUWHSPYC4639-88-05 16:46:0021[facility] OkwhhfuKKSOBOCWFPZN4500-67-51 16:46:92076Fyybgnam UrkusqeXRXPYURAAXDI4632-23-12 16:46:002.9[facility] [employer] SIIHRMHCJRZP5974-50-66 16:46:0028[facility] RbimjdxCCVSMIZWTJTF0185-40-84 16:46:00 40[facility] DdjxodrBLXXDIATNEKP0093-76-12 16:46:21712Alcxapmw HermannELECTROLYTES 2018-09-08 16:46:0067[facility] DisdaglJVXNRPCMFQJB6159-99-39 16:46:001.33[facility] MudpppkKVJNSNLDPEDH3233-33-28 16:46:001.3[facility] AmfkurqZWDKVYKFBKXZ6607-21-97 16:46:007.1[facility] JsggbznCYOJVQGVUHPL7385-72-20 16:46:75043Jiwlqpjb Jorge [facility] QHFNVXSAPXYF6853-46-65 16:46:009.3[facility] RppstofOYRGSACOOD9696-06-41 16:46:00 0.1[facility] NekhrvaCGOCWSGNPA6185-20-04 16:46:002.5[facility] HermannHEMATOLOGY 2018-09-08 16:46:000.2[facility] WhlgoziGVEMKPIKKL9326-15-26 16:46:000.7[facility] EaqljnsGXPANAJVDT7038-37-59 16:46:003.3[facility] XoeczwhVGESRTIBQJ0602-59-76 16:46:009.8[facility] PycbdttWSHADXWJDO9935-00-10 16:46:002.5[facility] [employer] PNDRJKVAAS1362-75-41 16:46:002.0[facility] BhneeqqYEMQOCSDQJ4455-94-32 16:46:00 48.8[facility] YosujigXRCUMXKUPB1830-72-82 16:46:0036.9[facility] HermannHEMATOLOGY 2018-09-08 16:46:0011.3[facility] FgdnqdpQGDKMCSKLA1756-71-27 16:46:00 Test Item Value Reference Range Interpretation Comments MCH (test code = MCH) 30.3 pg 27.0-31.0 [facility] UmjsuxtKLWGFKIOPJ5307-31-22 16:46:09354Zigrqvgo HermannHEMATOLOGY 2018-09-08 16:46:0013.9[facility] NuzpldrQBMXLOMIRC3872-74-99 16:46:0092.9[facility] QultpjuWNYEAYYFGE0615-55-59 16:46:0032.6[facility] NvlpfasBPFTNRWKFC6464-58-57 16:46:006.8[facility] DgsjyhfNJGWBKHMRZ3303-09-65 16:46:005.13[facility] CCVQBEWXWO2179-32-17 16:46:0015.5[facility] DevozopSBZVCZCKXX2830-56-62 16:46:00 47.7[facility] RdvctmhXUJMYT6256-49-47 16:46:00 Test Item Value Reference Range Interpretation Comments VLDL (test code = VLDL) 24 1 [facility] AfboluqOTBCIR6901-46-17 16:46:0045[facility] FmxgvtxPFCOOC7653-54-58 16:46:00 Test Item Value Reference Range Interpretation Comments CHD Risk (test code = CHD Risk) 2.82 1 3.90-5.80 [facility] ZwvaoffXTLVLA3451-92-97 16:46:0038[facility] OieirulEIJSTS6665-45-61 16:46:08705Whxlhpqi TcikyueSEUDKN7725-72-46 16:46:68185Falmjvyr HermannSPECIAL BAMBPHRNM3482-53-17 16:46:0012.2[facility] JyzeyddOVADZDYCXD0746-42-69 22:52:009.7 [facility] EarhbpwCURZXHZNYK5089-59-73 22:52:05955Hegtwvpo HermannHEMATOLOGY 2018-08-19 22:52:0013.7[facility] FaqcukqLBQKEQGICY4103-56-11 22:52:0017.8[facility] ZtcuxhjFFRPWZSXNZ8398-01-86 22:52:0052.9[facility] PldycwrJUNFXJOKPZ1440-61-23 22:52:0092.3[facility] AypbndbIQDPOXYKAV9580-96-10 22:52:005.73[facility] FQCFTGFSEW2242-98-87 22:52:008.5[facility] PhtxwvuVOBVMIPSAI2058-67-91 22:52:00 33.6[facility] ZxsorgjWKAKVSIYQQ1221-62-25 22:52:00 Test Item Value Reference Range Interpretation Comments MCH (test code = MCH) 31.0 pg 27.0-31.0 [facility] HermannCARDIAC OUWEFPC5669-46-59 09:40:0098[facility] HermannCHEM PANEL 2018-08-19 09:40:003.4[facility] HermannCHEM VWMCB5848-76-70 09:40:001.9[facility] HermannCHEM QACBU6644-88-08 09:40:0062[facility] HermannCHEM HDJGI6007-09-97 09:40:008.8[facility] HermannCHEM HCGTR8567-76-69 09:40:0023[facility] HermannCHEM XJONI2940-11-26 09:40:05035Egmpazac HermannCHEM HSWGT9466-55-35 09:40:004.6 [facility]annCHEM NGTRW7554-64-89 09:40:000.94[facility] HermannCHEM PANEL 2018-08-19 09:40:02174Subkuike HermannCHEM IBWCR4852-11-40 09:40:0013[facility] HermannCHEM BQHOA5655-73-39 09:40:46689Wsujksnq HermannCHEM CYAJH5609-45-41 09:40:0013.6[facility] IibiukeNBXDZVIWTH3899-48-22 09:40:000.2[facility] QKMAIDSKKG5507-10-77 09:40:000.1[facility] IkangeqIZBTLOYIGJ4715-91-64 09:40:00 47.9[facility] NmpnvmeGCBZXIPXFY4791-97-07 09:40:0040.1[facility] HermannHEMATOLOGY 2018-08-19 09:40:003.9[facility] ZtkbbgnVNJSMIZHGS3218-28-83 09:40:000.9[facility] NidqdrwHWZTEMTLTG9601-31-75 09:40:008.8[facility] TjnujdkEEGDCBRBQJ2107-70-55 09:40:001.2[facility] KjjcjoiFDZSJVPPRY3980-20-59 09:40:002.0[facility] [employer] GFMPSWFAEX2690-14-48 09:40:004.7[facility] RwtcopmIRIDNPNGQY9651-31-68 09:40:00 Test Item Value Reference Range Interpretation Comments INR (test code = INR) 1.09 1 0.85-1.17 [facility] ObrkstxBZOKJBYKNR4977-51-83 09:40:00 Test Item Value Reference Range Interpretation Comments PT (test code = PT) 13.9 s 12.0-14.7 [facility] IixpaqtLEVUJIINRE8905-37-79 09:40:00 Test Item Value Reference Range Interpretation Comments PTT (test code = PTT) 31.0 s 22.9-35.8 [facility] LvskkirNSSOCVDRMT5648-35-06 09:40:0093.0[facility] HermannHEMATOLOGY 2018-08-19 09:40:00 Test Item Value Reference Range Interpretation Comments MCH (test code = MCH) 31.1 pg 27.0-31.0 [facility] DzjjyofVKHXXIHRVL6057-80-19 09:40:0013.7[facility] HermannHEMATOLOGY 2018-08-19 09:40:0033.4[facility] NfxsttiGYXAMUSWIZ1042-58-07 09:40:0077[facility] KhznkvhOAJZGAVODD3586-11-98 09:40:009.9[facility] WizjtbwLBRNQVJQXM8359-67-94 09:40:0049.7[facility] HwqjsyvKNOHVTOMZT6440-87-62 09:40:0016.6[facility] [employer] HFKXJDFYDV0135-12-50 09:40:005.35[facility] PsuuxqaVJBPMOOLYJ8396-69-85 09:40:00 9.7[facility] HermannPARATHYROID FYBXFMQ1783-70-12 09:40:001.02[facility] [employer] PARATHYROID EGHHMSH8916-60-90 09:40:000.98[facility]annURINE AND STOOL 2018-08-19 09:40:00Negative (08/19/18 4:40 AM)[facility] HermannCHEM PANEL 2018-08-18 10:45:44691Xuggmmyp HermannCHEM VFUHR7825-91-25 10:45:00 Test Item Value Reference Range Interpretation Comments A/G Ratio (test code = A/G Ratio) 0.6 1 0.7-1.6 [facility] HermannCHEM CSNES6439-77-16 10:45:0030[facility] HermannCHEM PANEL 2018-08-18 10:45:006.9[facility] HermannCHEM NOOJT5395-93-53 10:45:002.6[facility] HermannCHEM OISPC9734-33-68 10:45:004.3[facility] HermannCHEM OPXRQ9392-88-47 10:45:00<0.1[facility] HermannCHEM GZEDF2826-97-75 10:45:000.5[facility] [employer] CHEM RMPQF7890-26-82 10:45:00>0.4[facility] HermannCHEM JYOWS9405-85-08 10:45:0021[facility] HermannCHEM BMLZB0154-13-25 10:45:008.5[facility] HermannCHEM CLOZI4824-20-79 10:45:0071[facility] HermannCHEM THGFX1002-17-03 10:45:0013 [facility]annCHEM DQIZR0079-28-79 10:45:77577Ttxjlzhk HermannCHEM PANEL 2018-08-18 10:45:0027[facility] HermannCHEM QQUBT2884-20-30 10:45:003.6[facility] HermannCHEM QVBCB1869-60-09 10:45:25798Swpeuerw HermannCHEM PAOYF5361-80-56 10:45:58530Ocsxjbsr HermannCHEM CSBZN9989-02-31 10:45:000.83[facility] HermannCHEM AKANL4025-42-09 10:45:0010.6[facility] HermannCHEM AHIGR5498-33-03 10:45:001.8 [facility]annCHEM RPMHB6020-33-69 10:45:003.6[facility] HermannHEMATOLOGY 2018-08-18 10:45:003.9[facility] LszxicwSGIPYAIVCF9621-45-93 10:45:002.5[facility] EhkywgyWIYOKZHVWA6230-75-57 10:45:001.9[facility] WyqjvdjFTBQMTNYJO1799-77-65 10:45:000.6[facility] TifqdecHJEFUQRQVR8754-28-20 10:45:003.8[facility] [employer] RWBXJYZRAW6733-95-09 10:45:000.2[facility] RahecgmOHUCAIDUVH6885-53-84 10:45:000.2 [facility] VptngxfVNCTMRQFEX9963-02-84 10:45:0044.0[facility]annHEMATOLOGY 2018-08-18 10:45:0045.3[facility] VlidrmkBULFOMPDYM3841-00-02 10:45:006.3[facility] JqycdpnKZYUKQCEXN7899-61-30 10:45:0049.2[facility] OfvwzwhCNDZQXGYRN5358-05-43 10:45:0017.0[facility] TeoaislMMNBDKEHNN1155-04-92 10:45:005.30[facility] ITHQYPPXTV7909-06-96 10:45:008.7[facility] XlszodhBXVEOUNPUR4979-18-85 10:45:00 92.8[facility] TuzzmqoNXJBJHWRCO1747-98-55 10:45:009.7[facility] HermannHEMATOLOGY 2018-08-18 10:45:0013.6[facility] VceulokTMDLIYBUWF5384-52-32 10:45:05698Qyythgjp VjnmjynGTAYFHZEZW6763-23-13 10:45:0034.6[facility] MvcoqhyJAJEIZBQQP9037-28-83 10:45:00 Test Item Value Reference Range Interpretation Comments MCH (test code = MCH) 32.1 pg 27.0-31.0 [facility] HermannPARATHYROID AVEWZWL5499-61-66 10:45:001.05[facility] [employer] PARATHYROID OVSGWYV5820-15-39 10:45:001.06[facility] RopfdxmUUBGPRZHVN0399-51-69 04:46:110.9[facility] YynoddzBTTTMCJOZD1550-28-67 04:46:110.2[facility] BDDBAYYSJS5543-49-25 04:46:115.1[facility] UwkczpjJMDVSYGEKB9111-92-89 04:46:110.1 [facility] KiocsotANESSEHPQK4594-00-52 04:46:117.6[facility] HermannHEMATOLOGY 2018-08-17 04:46:1144.9[facility] RcaylhrFNBBYJHRHV3654-68-07 04:46:1144.2[facility] DtloljdXZREHJFMFE4985-97-27 04:46:111.3[facility] EsyurpwHMZBCZMGZU1104-48-67 04:46:112.0[facility] DxxjybiUGMWUVIOPP8753-19-43 04:46:115.2[facility] [employer] UHRTOLFFDJXC9522-10-57 20:35:0011.9[facility] BnkfwqoIRVKVHKKTDCF0931-92-67 20:35:0064[facility] IxlxnmeAUEFIDKTNBNV9422-93-19 20:35:21788Tmkwfpsx [employer] SEMDUVHZGDFQ6010-63-25 20:35:003.9[facility] LzeipqwQACUPWCQNLLB3791-25-72 20:35:71229Rpyhasgv YpcqovcJAVXTJSYRJZS6919-94-29 20:35:0030[facility] LVOVZEKCHMFU0456-32-42 20:35:009.6[facility] RxoyzovDJNIVTPOPCPK2489-39-17 20:35:0016[facility] MdzzasnOSMEHFMAZBZB1653-18-86 20:35:72234Dzpmfnjb [facility] HUQCCLHEBUOG5067-70-26 20:35:000.91[facility]CjrdjxqOOGNDPAOGN8659-83-11 20:35:00 Normal (08/16/18 3:35 PM)[facility]rwbtdrPQICXATJUY6891-35-71 20:35:00Normal (08/16/18 3:35 PM)[facility]eg[facility]gjEGPCRUMUPY5406-42-82 20:35:00 Test Item Value Reference Range Interpretation Comments PTT (test code = PTT) 32.0 s 22.9-35.8 [facility]viewGdfxerkCUIDIOLCLG1255-98-05 20:35:00 Test Item Value Reference Range Interpretation Comments PT (test code = PT) 12.6 s 12.0-14.7 [facility]QzaviceWRMMATUWBJ9974-75-43 20:35:00 Test Item Value Reference Range Interpretation Comments INR (test code = INR) 0.96 1 0.85-1.17 [facility] NIVT4329-13-78 15:21:00Surgical Pathology Report Case: [id number] Authorizing Provider: Ruma Ndiaye MD Collected: 02/24/2017 1559 Ordering Location: [facility] Received: 02/25/2017 [...] SERRATED POLYP/ADENOMA Signing Pathologist Direct Phone Line: [phone] signed by Kenji Hercules MD on 02/26/2017 at 3:21 [id number] x 3Diarrhea, rule out microscopic colitisA. Right/ascending [...] METER 144 mg/dL 70-110 H TESTED AT [place] [address] ([facility]) (test code = [facility] 1538) [address] POCT-GLUCOSE JVBRN3408-50-79 14:21:00 Test Item Value Reference Range Interpretation Comments POC-GLUCOSE METER 118 mg/dL 70-110 H TESTED AT [place] [address] ([facility]) (test code = [place] [address]) [address] BEDSIDE GLUCOSE JNLXLTF6991-00-62 21:51:42485.0[facility] HermannBEDSIDE GLUCOSE IJFOGGE6260-05-64 16:52:94749.0[facility] HermannBEDSIDE GLUCOSE RUFHSGZ9913-40-24 12:45:42327.0[facility] OtqkircHQFXYIGNX7592-75-39 10:30:003.3[facility] [employer] JCDMXHUMU3090-92-28 10:30:005.4[facility] GqrhceeFEKYZRAQL4935-72-67 10:30:002.1 [facility] KgktrmdMRDRLGAWT5176-23-66 10:30:19149.0[facility] HermannCHEMISTRY 2011-03-25 10:30:92349.0[facility] MquqsztSTGLGAHVT3172-23-27 10:30:00 Test Item Value Reference Range Interpretation Comments A/G Ratio (test code = A/G Ratio) 0.6 1 0.7-1.6 L [facility] ImedfawFZZHJETSM5065-89-68 10:30:95134.0[facility] HermannCHEMISTRY 2011-03-25 10:30:000.2[facility] MwuzmnrHMVRWDSZC8309-46-14 10:30:000.3[facility] WnbmaizKUSHLZUZP1262-36-34 10:30:000.1[facility] NarjfkbZWWNYFBCX4995-07-98 10:30:002.4[facility] DwlrnvnVAKQHFZHQ7529-12-93 10:30:004.1[facility] [employer] QKSINNODL1333-02-02 10:30:18359.0[facility] RgeesawEITXNPUID5784-79-89 10:30:00 140.0[facility] WftvvzuDSUKSGJMG2511-13-19 10:30:008.0[facility] HermannCHEMISTRY 2011-03-25 10:30:0019.0[facility] ZkevbmyAFFHAGJER5281-67-76 10:30:63536.0[facility] CgytifpSGDWUGSWH8797-94-96 10:30:0021.0[facility] BjyhrufNBDAIGCBX6385-67-58 10:30:001.7[facility] YblyborSRNUARDME1418-16-66 10:30:0018.1[facility] MVCTBRORZU2849-22-71 10:30:000.9[facility] YwowoejNJFRDCKACQ9408-39-93 10:30:000.1 [facility] HbunhibZDDVJOUJXW3850-32-86 10:30:0016.0[facility] 2011-[facility]25 10:30:009.1[facility] RzszqrtCKGAOZSXHA4547-41-69 10:30:001.5[facility] DfivcixJUJQUYCUSN5902-39-85 10:30:004.3[facility] XmonbwxOTOXWGYLIO6047-79-06 10:30:003.2[facility] YzsoobhHFDVNWKPZT2568-90-59 10:30:001.6[facility] [employer] KIWKWUGSDS3853-73-21 10:30:0031.4[facility] UhjabgkUTLFFHDSSV6623-20-12 10:30:00 42.0[facility] SvfancfSYGZJWXSZD4512-18-55 10:30:0015.0[facility] 2011-03-25 10:30:0033.9[facility] NoustbhSBAPEKFMIQ8784-02-97 10:30:00 Test Item Value Reference Range Interpretation Comments MCH (test code = MCH) 31.0 pg 27.0-31.0 N [facility] IfdfyzoSPHUZQEZWE1156-10-10 10:30:0091.4[facility] 2011-03-25 10:30:0036.8[facility] VcyjxgzPONSPNCQGB9734-07-01 10:30:0012.5[facility] WcdnigiALKESTPHMY8342-15-91 10:30:0010.0[facility] TihxamaTXHQZERAGW7535-06-57 10:30:28087.0[facility] LockdjsFIPGVNTEJG2260-48-85 10:30:004.03[facility] [employer] MMRFEDARTF6454-73-99 10:30:0010.1[facility] EaooullKSCXUUZVN0837-05-72 13:51:00 Test Item Value Reference Range Interpretation Comments A/G Ratio (test code = A/G Ratio) 0.7 1 0.7-1.6 N [facility] UswyubwXZVLRKDEP9059-09-89 13:51:000.2[facility]annCHEMISTRY 2011-03-24 13:51:003.2[facility] GzkyijaIMMNAFXAD1391-05-64 13:51:005.6[facility] TyhjvffBDGLUGSNC5662-45-12 13:51:002.4[facility] PgbweouHYNOSZIJR2887-48-39 13:51:000.2[facility] GdrnlbbMPWKEYTQO4832-19-84 13:51:38940.0[facility] OAMRXOQGR4088-44-80 13:51:40959.0[facility] OggijjjHSYFHWSEL8014-29-75 13:51:000.4 [facility] CpdbhjzRTMPRDDDM1402-35-20 13:51:20854.0[facility]annCHEMISTRY 2011-03-24 10:08:001.6[facility] UkmwufpTUNFHLUXN7084-83-93 10:08:0015.6[facility] OddvqlwREQVULLLE6878-28-37 10:08:0021.0[facility] VhidipxJHNRMRGSF3444-19-49 10:08:003.6[facility] SqlkexqOYFEXIUZO4038-35-62 10:08:56236.0[facility] CLXCCBPRI8060-45-63 10:08:007.7[facility] AforbybIDHPSNLJG7765-74-48 10:08:58643.0 [facility] HpuqfzlBORYRGHYK1624-22-43 10:08:0023.0[facility]annCHEMISTRY 2011-03-24 10:08:001.7[facility] SzogwefDPZRRIZBJ0883-10-19 10:08:75433.0[facility] MjqpankVEYDZKSWUV7858-55-15 10:08:00 Test Item Value Reference Range Interpretation Comments PT (test code = PT) 14.8 s 12.0-14.7 H [facility] FjeikeeGWWBXNGJUL2440-98-17 10:08:00 Test Item Value Reference Range Interpretation Comments INR (test code = INR) 1.16 1 0.85-1.17 N [facility] NsngngrWRXFLUPGRB6291-51-17 10:08:00 Test Item Value Reference Range Interpretation Comments PTT (test code = PTT) 34.9 s 22.9-35.8 N [facility] YerykowJXTVNWVVED1310-49-43 10:08:000.1[facility] 2011-03-24 10:08:004.1[facility] TphufumLJVIGIDVPG7482-49-40 10:08:002.8[facility] XmvimcoMHKUJKKRRY6499-10-50 10:08:000.8[facility] NtuojbbFVQIXEUJSE0462-66-69 10:08:001.8[facility] SblwhhyQKMPBJGNJV7383-92-78 10:08:0028.5[facility] [employer] QQQGNKHZRC9733-48-98 10:08:008.6[facility] AlozpqsXBPZTHEPVY3770-18-00 10:08:00 19.0[facility] KcrqbkqLCSHNPDQZW4004-31-23 10:08:001.3[facility]annHEMATOLOGY 2011-03-24 10:08:0042.6[facility] ZtyonqjHXVOBRASSF5372-44-02 10:08:009.7[facility] OjmmpktEIAKDBGJBD9775-32-50 10:08:003.67[facility] RzsutxjRQUSQXFNWB1941-60-21 10:08:0034.9[facility] WqbbwcfMVNQVQPHFH7619-38-44 10:08:0015.1[facility] LDMKKHTYCO4742-98-21 10:08:69314.0[facility] DqlauohBZLPADQOKX1280-01-25 10:08:00 90.5[facility] ZpvlzqqBNJYXLJXKV8406-40-05 10:08:00 Test Item Value Reference Range Interpretation Comments MCH (test code = MCH) 31.6 pg 27.0-31.0 H [facility] ZcmczdlCKHRWZKVXC6409-53-58 10:08:009.5[facility]annHEMATOLOGY 2011-03-24 10:08:0011.6[facility] UctykoiLNWSAGCAHA3217-21-92 10:08:0033.2[facility] IkvwtqfOLWOVVTOCC3586-48-28 10:08:00Negative *NA*(03/24/2011 05:08:00) ?? [facility] EuthyvsLIVIOFLFL7635-56-28 10:24:0036.0[facility]annCHEMISTRY 2011-03-23 10:24:35254.0[facility] RqmegxmXKNNLNXJE7543-76-35 10:24:0097.0[facility] NcceumiIROJTNOOK0174-30-24 10:24:0022.0[facility] GnrqqwaTKPYDBTNC6542-91-75 10:24:001.5[facility] BbataanRBIGHNVUA4928-29-90 10:24:0020.0[facility] [employer] WXWDMTSUG6136-93-55 10:24:83389.0[facility] SazbkkhHAANWHTMH1800-15-06 10:24:007.8 [facility] OjmkxobCVXAUJXJG7965-76-54 10:24:88706.0[facility]annCHEMISTRY 2011-03-23 10:24:004.7[facility] SddsaxoXXTCJEBIB5006-76-37 10:24:0019.2[facility] IxhoozcGYJWVPSDG6405-61-22 10:24:002.8[facility] MbzfcsjIWUCFYNSF8787-63-54 10:24:001.9[facility] PpdmnodHOZPRMEGM0573-47-87 10:24:28554.0[facility] [employer] SEEJDHQAD9395-61-38 10:24:00 Test Item Value Reference Range Interpretation Comments A/G Ratio (test code = A/G Ratio) 0.7 1 0.7-1.6 N [facility] YshjtzzMHOZTWHFA0408-35-77 10:24:00 Test Item Value Reference Range Interpretation Comments B/C Ratio (test code = B/C Ratio) 15.0 1 6-25 N [facility] VzqsnmiBMRXSUMHL6399-22-45 10:24:001.0[facility]annCHEMISTRY 2011-03-23 10:24:62332.0[facility] MjzioalCJHWSQMHZ9210-02-40 10:24:59081.0 [facility] QhxlbmwTZUNUVYCR8434-29-55 10:24:003.2[facility]annHEMATOLOGY 2011-03-23 10:24:0014.8[facility] IdsxbmjBQWCPFZQPY8778-16-82 10:24:009.8[facility] BvfaxpxLVLBDLAMMJ7474-40-52 10:24:39517.0[facility] HumxesbNAHKHQTDRY3356-41-38 10:24:00 Test Item Value Reference Range Interpretation Comments MCH (test code = MCH) 31.0 pg 27.0-31.0 N [facility] NpxrvxtAXEYMPKTPI3887-33-68 10:24:0034.1[facility]annHEMATOLOGY 2011-03-23 10:24:0032.7[facility] FrfwogaPNLKCVFZEI9565-31-13 10:24:0091.0[facility] JqjezcaPKZRMHFEFW3082-00-28 10:24:0011.2[facility] PpldubyQRWBTIDVJB6646-36-61 10:24:006.7[facility] SoijtfiNWVCCNBCLM0671-56-30 10:24:003.6[facility] [employer] IWZZFNIQFZ9838-24-07 10:24:00Slight *ABN*(03/23/2011 05:24:00) ??[facility] BrjlajpBSMGRIFMAD1238-84-53 10:24:002.1[facility] IbjsktmGZPYDOQPGD6935-06-85 10:24:002.7[facility] ClsiijcXQPKISNULQ4298-09-10 10:24:000.9[facility] TYVSTAUWXU1222-77-01 10:24:00Normal (03/23/2011 05:24:00) ??[facility] [employer] AZAKZTFPYR8192-13-13 10:24:0015.0[facility] YzdttotIVMULQFJHQ2921-81-40 10:24:00 0.0[facility] QcfqupqNONRJBCGBK6881-38-90 10:24:001.0[facility]annHEMATOLOGY 2011-03-23 10:24:001.0[facility] NuoadsqIWZEBOOSOX4337-95-68 10:24:001.0[facility] ZykpcbuQNGGPUJMGV1680-08-54 10:24:0031.0[facility] JwzgieeWAYPRLKUZL3642-81-79 10:24:0013.0[facility] TprwqslBYQMCSJTVY7765-42-51 10:24:0039.0[facility] LVWPSDPDLK6638-98-97 10:24:000.1[facility] EvoivusRTUJBEURNF4228-04-31 10:24:00 10.0[facility] VwqulvtQBOJGLCWQL0697-68-34 22:20:00??[facility]annURINALYSIS 2011-03-22 22:20:003.0[facility] OjhxychBJOEWLMXSV4809-98-57 22:20:00Occasional /HPF *NA*(03/22/2011 17:20:00) ??[facility] QniocaqOUAPHXMYMU3583-31-06 22:20:00 Few /LPF *NA*(03/22/2011 17:20:00) ??[facility] UjpvryvWUWLPOLQOO5298-97-59 22:20:00Few /LPF *NA*(03/22/2011 17:20:00) ??[facility] 2011-[facility]-22 22:20:00<1.0[facility] VrwymhaXGMWAEPPMT7148-43-46 22:20:00Negative (03/22/2011 17:20:00) ??[facility] AllianceVtzezdfGVWXNRAKUT2722-05-58 22:20:00Negative (03/22/2011 17:20:00) ??[facility] AllianceXorlywhQBXEEJIARG4827-98-62 22:20:45086 mg/dL *ABN*(03/22/2011 17:20:00) ??[facility] AllianceXjhtoztCFGGHNRBMV2365-51-19 22:20:0010 mg/dL *ABN*(03/22/2011 17:20:00) ??[facility] AllianceKclllgjSDRTFKYTHB7022-99-59 22:20:00 Negative *NA*(03/22/2011 17:20:00) ??[facility] AllianceJpfbmvbEYSYULFIPI3221-51-18 22:20:00Moderate *ABN*(03/22/2011 17:20:00) ??[facility]UR[facility] 2011-03-22 22:20:00Negative mg/dL *NA*(03/22/2011 17:20:00) ??[facility] HGJUHUIEFA1967-85-60 22:20:00 Test Item Value Reference Range Interpretation Comments UA Spec Grav (test code = UA Spec 1.016 1 N Grav) [facility] AllianceLfynccfTHIJFSTDVO1612-47-44 22:20:00 Test Item Value Reference Range Interpretation Comments UA pH (test code = UA pH) 5.5 1 5.0-8.0 N [facility] AllianceDtpllhaKJYHWVTAGA7361-47-74 22:20:00Yellow *NA*(03/22/2011 17:20:00) ?? [facility] AllianceCsoetsaARGIIHTWFR8175-16-59 22:20:00Slight *ABN*(03/22/2011 17:20:00) ??[facility] GsuvadwRYMRVFLLW9597-23-54 14:40:000.2[facility]annCHEMISTRY 2011-03-22 14:40:000.1[facility] ZfbfoayVRAMWDVMAJ9548-97-88 14:40:00Negative *NA*(03/22/2011 09:40:00) ??[facility] MvnsiqyALZGSFJNKV3331-54-73 14:40:00 Negative *NA*(03/22/2011 09:40:00) ??[facility] YkmejjmMIBANDARCR6618-96-57 14:40:00Negative *NA*(03/22/2011 09:40:00) ??[facility]annIMMUNOLOGY 2011-03-22 14:40:00See Note 9(03/22/2011 09:40:00) ??[facility]annCHEMISTRY 2011-03-22 12:05:001.67[facility] TsefyzhBOLPLUHOM9927-57-69 12:05:000.044[facility] HermannBEDSIDE GLUCOSE KWNJYOA0417-20-73 17:19:52683.0[facility] HermannBEDSIDE GLUCOSE KQACBBY1828-33-24 12:36:46410.0[facility] JsawetuYRUOLGYIW8966-53-78 08:07:0018.5[facility] OagyqfdBHRSLHAOP7481-78-17 08:07:003.5[facility] PVVCKLZVB2730-24-06 08:07:0021.0[facility] BotzdfkZSTEQASCX1310-37-51 08:07:00 147.0[facility] GbdkjppIWPJNTPHO5851-89-12 08:07:001.4[facility]annCHEMISTRY 2011-03-15 08:07:91569.0[facility] UsxceukHZGDDFARM6641-77-21 08:07:008.1[facility] QtqfjmzCTOIRSLNH5530-77-64 08:07:0097.0[facility] LujtvmtCAWJLBVHW9578-47-34 08:07:0021.0[facility] RdbfxkrIUPNOHNSL5355-95-54 08:07:001.7[facility] [employer] QWPVFYJYPK8264-92-36 08:07:0016.7[facility] DdtfabwBNABQRUBGP7897-92-84 08:07:00 12.4[facility] YrusobqRDOBRCEFGG8813-75-64 08:07:0063.3[facility]annHEMATOLOGY 2011-03-15 08:07:000.6[facility] AhrgbwgMLWELYCRJP9380-70-83 08:07:001.1[facility] ArknsosZCRIXEIOLM0060-92-44 08:07:000.1[facility] GwnozcdASZKEXDZLM9965-65-56 08:07:001.5[facility] HkmhhvtUSDUSGTXTC6295-81-47 08:07:005.8[facility] [employer] EDDDUPWOZX1699-02-26 08:07:001.3[facility] OtxuhrzUXLPERAENY3256-91-22 08:07:006.3 [facility] VrxihrbNMUUIXRHXY6606-19-83 08:07:00 Test Item Value Reference Range Interpretation Comments MCH (test code = MCH) 31.6 pg 27.0-31.0 H [facility] HbbmsyzGUUUETEIPP0818-20-88 08:07:003.56[facility]annHEMATOLOGY 2011-03-15 08:07:0090.7[facility] FpfrazbDGJCDYTGLH4628-98-75 08:07:0032.3[facility] KqoztdiDJFGCMHCCA3699-76-45 08:07:0011.3[facility] YscnhvzCHICVMOQFG3128-47-00 08:07:009.1[facility] VctxqriBNAKJMIQHH7638-90-28 08:07:0010.1[facility] [employer] ZFVZPYENRV8776-46-80 08:07:51640.0[facility] BgzypxeNHCYXKHNBO9518-87-16 08:07:00 14.7[facility] QhxmgsrTDJXUDLLFU6962-62-04 08:07:0034.8[facility] HermannBEDSIDE GLUCOSE PSQGWIK3761-83-08 02:08:24960.0[facility] MytooakUSVPYZBDZ2578-17-33 14:30:002.0[facility] QaqchayWOJAYRYUT5193-18-42 07:41:000.042[facility] [employer] ZHINKKIIU6920-74-38 07:41:0031.0[facility] PofjijyCACQVOOVL1781-32-08 07:01:001.6 [facility] IsimmnnQOYMQTSWPY2330-19-16 07:01:00 Test Item Value Reference Range Interpretation Comments INR (test code = INR) 1.15 1 0.85-1.17 N [facility] PcqtixuGUWIQEHXBK3891-48-85 07:01:00 Test Item Value Reference Range Interpretation Comments PT (test code = PT) 14.7 s 12.0-14.7 N [facility] QfhethqDMCMCPPIFO1718-53-78 07:01:00 Test Item Value Reference Range Interpretation Comments PTT (test code = PTT) 30.3 s 22.9-35.8 N [facility] VtvzxpiYLZZOMBGM6241-69-52 06:50:0049.0[facility]annCHEMISTRY 2011-03-14 06:50:0023.0[facility] CgpebknDDVYQIUEA0566-91-91 06:50:004.3[facility] RmfcbbuXGRIJJOQD9094-43-24 06:50:00 Test Item Value Reference Range Interpretation Comments A/G Ratio (test code = A/G Ratio) 0.8 1 0.7-1.6 N [facility] HuemcuyVGJROFWUN5767-42-42 06:50:003.4[facility]annCHEMISTRY 2011-03-14 06:50:0033.0[facility] XmvmlyiXJRWGUULN8381-16-17 06:50:0027.0[facility] AmvhkznAOICZEUMZ6518-73-78 06:50:000.4[facility] PsagvsdAWRAIAIRT6190-48-30 06:50:006.2[facility] AhsbcpaIHCXFAZMV6274-42-44 06:50:52520.0[facility] PJFWAAIWE3265-00-38 06:50:002.8[facility] LchtwloDZEXSOVQT7685-88-52 06:50:00 Test Item Value Reference Range Interpretation Comments B/C Ratio (test code = B/C Ratio) 14.0 1 6-25 N [facility] TfszodbHJGRBSWNZ4057-65-91 06:50:008.4[facility]annCHEMISTRY 2011-03-14 06:50:0021.8[facility] UsyantoCSRIXJKBS9658-62-10 06:50:0019.0[facility] StftjqoQIAOSWHZR8084-41-73 06:50:53642.0[facility] OgyzlgiFWHCAEZQV5244-85-21 06:50:43585.0[facility] UfocqpjPXYZXEMES5917-56-98 06:50:003.8[facility] [employer] GHTHKIFBS7319-07-52 06:50:0020.0[facility] CpowmppOGRUZHFQD7148-52-97 06:50:001.4 [facility] FyzemxeLBWLCWAOT3643-12-26 06:50:0091.0[facility]annCHEMISTRY 2011-03-14 06:50:001.2[facility] ZlxmhrdFGWPTXDYWT1956-74-26 06:50:0010.3[facility] LmoxznpSTEZECLILL8369-34-17 06:50:006.2[facility] DrepxugZDEWUVGDFC8037-96-69 06:50:0061.3[facility] KlemjwjVKOCDBHSNC0221-06-85 06:50:0022.2[facility] [employer] VIDBJZBAMO6879-65-86 06:50:000.0[facility] MbhzttyCTAHMWJYOF5284-24-07 06:50:001.2 [facility] DicwxnqQYAJEOZKAV4292-79-10 06:50:007.3[facility]annHEMATOLOGY 2011-03-14 06:50:000.0[facility] GqbzrbqZHHNPMXWBE7078-87-23 06:50:000.7[facility] DpxpxffEAGUCYKQFP9055-13-42 06:50:002.6[facility] OdqxlrqKRHQOJAPRI9908-63-78 06:50:00Slight 52*ABN*(03/14/2011 01:50:00) ??[facility]HE[facility] 2011-03-14 06:50:00Slight 51*ABN*(03/14/2011 01:50:00) ??[facility] [employer] SWMBUBVRWW4919-13-81 06:50:001+ 49*ABN*(03/14/2011 01:50:00) ??[facility] [employer] MWLLBOPNUI5759-90-75 06:50:00Slight 50(03/14/2011 01:50:00) ??[facility] [employer] ZYPVWHLSPW7389-82-24 06:50:0013.3[facility] XivzftzSOIHGABZLE9577-13-33 06:50:00 11.8[facility] LlmphsnMZRUXRVOQS3210-66-66 06:50:004.18[facility]annHEMATOLOGY 2011-03-14 06:50:0090.6[facility] VmqwygdNBWBBPCZEX2343-52-86 06:50:00 Test Item Value Reference Range Interpretation Comments MCH (test code = MCH) 31.8 pg 27.0-31.0 H [facility] EwqbamtNJVDHYAQBF4454-06-84 06:50:0037.9[facility]annHEMATOLOGY 2011-03-14 06:50:0010.0[facility] IbtaiaxCDKPWULJHZ4659-19-60 06:50:0013.5[facility] JwdupgyFHIZDANYZT5737-68-84 06:50:30709.0[facility] XxertitUITABCSYWM4731-06-28 06:50:0035.1[facility] CqcnvyoNSQLKRAFQ0417-87-58 06:50:0027.0[facility] OGFGJQYZV7169-52-78 06:50:003.2[facility] QmsykpoPJVZXOPQJ4972-84-29 06:50:002.9 [facility] UuqxjlzSJKTYTKVE8957-20-76 06:50:0032.0[facility]annCHEMISTRY 2011-03-13 06:50:006.1[facility] SjyfbzkOQFTYZRIC4985-72-21 06:50:00 Test Item Value Reference Range Interpretation Comments A/G Ratio (test code = A/G Ratio) 0.9 1 0.7-1.6 N [facility] ZlxigzyMCSRXORUE3161-83-07 06:50:000.3[facility]annCHEMISTRY 2011-03-13 06:50:000.4[facility] PwcynxuYADAZQQYJ8146-69-60 06:50:000.1[facility] RtxwlhsOHMKFHTFM1085-31-02 06:50:83331.0[facility] HermannBEDSIDE GLUCOSE TESTING 2011-03-07 16:38:01529.0[facility] HermannBEDSIDE GLUCOSE VFMRKAV1872-96-38 10:32:14310.0[facility]annBEDSIDE GLUCOSE ZPYMFFR8008-38-70 02:38:27430.0 [facility] HadzosuXLLHLAKDY9300-98-20 07:36:00>60.0[facility]annCHEMISTRY 2011-03-05 07:36:79011.0[facility] ObqdqleMGSRTRFPY8911-31-16 07:36:79692.0 [facility] UdhynajFBCLGPLEJ9264-62-73 07:36:003.8[facility] HermannCHEMISTRY 2011-03-05 07:36:008.4[facility] VoasmbyVJKVJNOMN8364-32-48 07:36:0015.8[facility] AghfkjbYZMUMGAEK8558-79-86 07:36:0025.0[facility] BmjaaqsKGOGYTWJJ0523-96-18 07:36:0016.0[facility] HyarhdvBLPGEPRDS9068-28-14 07:36:000.9[facility] [employer] FWGCMSKIT0411-08-69 07:36:0077.0[facility] MjpylzmLMFPRMXJYR1261-40-52 07:36:00 45.6[facility] BzvtwfyHYJEQVZNTM3381-54-56 07:36:0010.4[facility]annHEMATOLOGY 2011-03-05 07:36:003.5[facility] XtylambTEHSYJSRQX3156-47-44 07:36:0038.5[facility] AmappjiGSZQTHBJXN5521-09-49 07:36:000.4[facility] MfpleyxUOIVBBOIGA6072-27-98 07:36:000.2[facility] LfhkimjKVSEIDQEOF2738-68-88 07:36:002.0[facility] [employer] FCHSRLPVIX2626-52-79 07:36:005.8[facility] RmapptzFFCXZOKNWK5209-94-68 07:36:004.9 [facility] MgascxzVZONWFXECH6190-84-51 07:36:001.3[facility]annHEMATOLOGY 2011-03-05 07:36:009.9[facility] VbttrklHDNOZUDCFS6985-88-94 07:36:0092.6[facility] OpkeuwbLYDAZHQZRC5288-34-61 07:36:003.08[facility] PpxshfzJOSRKJPSHU7377-00-62 07:36:0012.7[facility] XrscpkrIYVYZPHUTX8895-26-11 07:36:00 Test Item Value Reference Range Interpretation Comments MCH (test code = MCH) 32.0 pg 27.0-31.0 H [facility] SbtetzaPOHDREZDGX5924-76-87 07:36:0028.5[facility]annHEMATOLOGY 2011-03-05 07:36:0034.6[facility] YuctimzAOGVOABEFU6446-92-64 07:36:77351.0 [facility] FnaenzuTQKYRWTIMK2105-75-88 07:36:0016.5[facility]annHEMATOLOGY 2011-03-05 07:36:009.1[facility] CgvnxddVKQHDUYCIQ1535-72-11 10:21:13685.0[facility] ErctlwcGSATJVLTVB6317-48-33 10:21:0016.4[facility] QqccxahBGKRANZOLI5507-69-21 10:21:0033.6[facility] HkujpjyXXMVPHUMLI5136-94-40 10:21:00 Test Item Value Reference Range Interpretation Comments MCH (test code = MCH) 31.8 pg 27.0-31.0 H [facility] IbggkbqGUJUFKIEDH6869-05-99 10:21:0012.4[facility]annHEMATOLOGY 2011-03-03 10:21:009.4[facility] UvgubstOSLTLNQUHW5425-89-77 10:21:0094.6[facility] NsuiigcDLAJGIHTHY9658-65-21 10:21:0030.8[facility] YygmajoHPCTLMGAUT6659-11-24 10:21:0010.4[facility] LnpqlnvTXDMMGCOQV7779-43-13 10:21:003.25[facility] DSRWPBGVDP6721-27-85 10:03:0016.0[facility] LyhcrnpNZNEFSQGED8358-67-35 10:03:00 9.1[facility] NtxwrmiXJRQSWWRMP5562-63-14 10:03:81763.0[facility]annHEMATOLOGY 2011-03-02 10:03:003.23[facility] ErtcyxvWGIMDADHGJ9565-74-83 10:03:0094.5[facility] OlinzsnHLIXSNYZDR0909-29-49 10:03:0030.5[facility] RkxaxbqWZCLYWNZHV7280-81-40 10:03:0010.3[facility] GokrlfhWEWMMURXOS7079-16-39 10:03:0033.6[facility] [employer] BFRJNBUCWR8632-40-57 10:03:0012.7[facility] PcnbpthRKEKXCKCQD2397-22-44 10:03:00 Test Item Value Reference Range Interpretation Comments MCH (test code = MCH) 31.8 pg 27.0-31.0 H [facility] BdbshgwWTYSYRCESO2188-24-01 20:38:00??[facility] HermannURINALYSIS 2011-03-01 20:38:00Clear (03/01/2011 15:38:00) ??[facility]annURINALYSIS 2011-03-01 20:38:00 Test Item Value Reference Range Interpretation Comments UA Spec Grav (test code = UA Spec 1.009 1 N Grav) [facility] PxexqkzBDMPKHMFGA9337-38-63 20:38:00Yellow *NA*(03/01/2011 15:38:00) ?? [facility] WcqivkpIPZQBPRGIM6070-76-33 20:38:00 Test Item Value Reference Range Interpretation Comments UA pH (test code = UA pH) 5.5 1 5.0-8.0 N [facility] CsvvpbyRDANFXOYDZ2263-50-10 20:38:00Negative mg/dL *NA*(03/01/2011 15:38:00) ??[facility] DpdznycFRMYZWZIEI0126-35-37 20:38:00Negative mg/dL *NA*(03/01/2011 15:38:00) ??[facility] JnektgoNFPWHUULIM1734-68-71 20:38:00 Negative *NA*(03/01/2011 15:38:00) ??[facility] TeackvcEECLYDZTAH3844-79-93 20:38:00Negative (03/01/2011 15:38:00) ??[facility] NajuszcURNCIUIIOU3674-70-56 20:38:00<1.0[facility] OqragbbMCFZOHQTUE9654-23-44 20:38:00Negative (03/01/2011 15:38:00) ??[facility] FjhhgldKZYPRAOBJK1111-87-64 20:38:00Negative (03/01/2011 15:38:00) ??[facility] QaasgnzCAKSNGUPJF8074-13-70 20:38:00Few /LPF *NA*(03/01/2011 15:38:00) ??[facility] XbcteojAEXBXQMTGZ5295-06-25 20:38:00 Moderate /LPF *ABN*(03/01/2011 15:38:00) ??[facility] FyhlsauWINDACIUHA3473-34-36 20:38:001.0[facility] UerqvgeDTJEWCUIEJ4129-88-05 20:38:0010 mg/dL *ABN*(03/01/2011 15:38:00) ??[facility] VrhtufcRBJZZPIWMG3121-84-29 08:19:005.7 [facility] UpliqsiJVBBWMULEF3013-44-41 08:19:004.8[facility]annHEMATOLOGY 2011-02-28 08:19:001.0[facility] NtsrxwyYQAHAZLNFX6207-87-78 08:19:008.9[facility] BwygntdAAFTZYMJYP8512-84-01 08:19:002.8[facility] NipajwfLDIIBPLYGR5543-94-69 08:19:0047.3[facility] ZengtbwDEIMCNEVIU2168-06-43 08:19:0040.0[facility] [employer] HSNFSAKQSP2585-92-97 08:19:000.1[facility] HejdzjgSTZJOUTMXG8893-08-74 08:19:001.1 [facility] QqwxuxrQIDEWIJZMF6382-33-43 08:19:000.3[facility] HermannCHEMISTRY 2011-02-27 08:43:002.8[facility] WhslcfbQSINOVCTR5799-30-26 08:43:00 Test Item Value Reference Range Interpretation Comments B/C Ratio (test code = B/C Ratio) 14.0 1 6-25 N [facility] EhxcmwfXCVKKVWZS8091-39-58 08:43:0013.8[facility] HermannCHEMISTRY 2011-02-27 08:43:00 Test Item Value Reference Range Interpretation Comments A/G Ratio (test code = A/G Ratio) 0.8 1 0.7-1.6 N [facility] TeinjrhZFKMHUMIQ4472-86-96 08:43:005.0[facility] HermannCHEMISTRY 2011-02-27 08:43:008.4[facility] AtuaxbhVPLOHMDFE8131-04-69 08:43:0024.0[facility] ObcuwlfZJTBMHOYR5267-94-39 08:43:002.2[facility] ZbjejjuGBYPCINBN4174-05-64 08:43:000.3[facility] LdqsgtqYANWPDJSB6185-20-44 08:43:0021.0[facility] [employer] BUNFHZCVN3585-17-37 08:43:0098.0[facility] BxocdhiBUDEPAVDC4988-08-43 08:43:0028.0 [facility] VkurdecBCSXJZJMT0454-59-75 08:43:0010.0[facility] HermannCHEMISTRY 2011-02-27 08:43:003.8[facility] WxbzsxnONFGBGZUH7271-99-66 08:43:21963.0[facility] CsansvqCGFTOMYTF1374-38-49 08:43:000.7[facility] TftliusTQIKSWOLC5335-82-81 08:43:17076.0[facility] WlzqtxfQEYHQMRSM7311-21-22 08:43:61546.0[facility] [employer] KQROACTXRJ4488-40-28 08:43:000.9[facility] XsszznoLDLGAAAVXF3833-43-55 08:43:000.3 [facility] VltfkuiCMESFHZPNG9349-53-87 08:43:003.3[facility] HermannHEMATOLOGY 2011-02-27 08:43:000.1[facility] LsybssfXEEYRKCGYB8397-06-91 08:43:001.2[facility] UxirjsiZIGWPBVANY1184-34-18 08:43:006.0[facility] UwbhauhBPROXDQCAE5354-36-58 08:43:008.3[facility] FeqfdvjRZRMMUWOPM2479-71-79 08:43:003.1[facility] [employer] HTYQEBUSEG8501-47-33 08:43:0056.6[facility] MgeyzjhXPBZEAHWSW7621-51-15 08:43:00 30.8[facility] HermannBEDSIDE GLUCOSE YBQOJDH3890-46-21 22:17:71653.0[facility] HermannBEDSIDE GLUCOSE FEQZPZK6176-48-70 18:30:43834.0[facility] HermannBEDSIDE GLUCOSE XXOINKZ1799-63-51 11:15:76572.0[facility] VuobouaQDWSVLKOH6985-30-62 06:52:0015.6[facility] OvenqfzGYBQVQFKG5215-37-97 06:52:0025.0[facility] [employer] RSUHGQLVM3779-23-19 06:52:007.9[facility] OqyjrxhNBXPCNIAL7176-43-18 06:52:90028.0 [facility] ZqpjksyDWWYCYDKY5903-51-30 06:52:003.6[facility] HermannCHEMISTRY 2011-02-26 06:52:000.5[facility] VukqkzhVKZFHCMQR8517-74-24 06:52:96389.0[facility] CsurpizKWCCSQPKQ6654-48-92 06:52:009.0[facility] DyiwnptVMURNYSRB3172-86-91 06:52:26384.0[facility] FrmksviUUOMXLNPWK8604-90-23 06:52:0010.5[facility] [employer] CNNCGKMFSK0653-72-70 06:52:0031.2[facility] PhsmdhmLMVNQGVQI5065-04-19 08:43:001.9 [facility] MnobsjrBGIQLGTJU5920-17-15 08:43:007.9[facility] HermannCHEMISTRY 2011-02-24 08:43:71540.0[facility] RtajgmnDNUBAPWKH4177-78-62 08:43:0024.0[facility] PcnzihqKULLPGGIK3668-29-16 08:43:93395.0[facility] FhfuzmlVIYQMUECV4953-69-56 08:43:000.6[facility] GlnnqhlSZEIYJJVJ0122-94-04 08:43:0012.0[facility] [employer] SEXSBDAKA6427-98-11 08:43:0089.0[facility] RvbpxeqESANQWYXP4709-02-28 08:43:003.7 [facility] RvhgwoyEYMUPXDVF5750-67-52 08:43:0015.7[facility] HermannHEMATOLOGY 2011-02-24 08:43:0030.7[facility] NdrrrzzWDGLOOGKQV3831-29-58 08:43:0010.3[facility] NvyqfrrQOFTVGMYTQ3816-36-54 08:43:65524.0[facility] KojpqesNMZUOGBHU9434-82-04 07:22:001.7[facility] RhcweycEJQQSQZLB6188-24-52 07:22:004.64[facility] [employer] CRMBGEPNK8623-34-03 07:22:001.1[facility] CpccggeAHMTXANGQ8773-14-37 07:22:001.16 [facility] AfuqdrtVAVVQMKKI8727-73-98 07:22:004.4[facility] HermannCHEMISTRY 2011-02-21 07:22:0016.9[facility] CflkvfpIGRMDSYWR8841-34-22 07:22:006.0[facility] VkincbeGUYYWBYQU5168-22-16 07:22:000.4[facility] AdjyymiEHMFMRHFV9992-30-82 07:22:43648.0[facility] KkouqkgIGRYSVQNF6382-85-11 07:22:004.9[facility] WYULCSRAC1418-90-84 07:22:34276.0[facility] AfeyezoJMSBNYAWU1636-49-60 07:22:007.7 [facility] ZqevzagONZXJZUND4711-91-94 07:22:63165.0[facility] HermannCHEMISTRY 2011-02-21 07:22:0019.0[facility] IiunrufSMMHWCEBQ5690-60-03 07:22:003.7[facility] AvinfdfHREPEHDPHE2925-72-73 07:22:000.6[facility] CcrwjpyDKEPGLMXVN0791-98-30 07:22:000.9[facility] LrsmfzyWXBXNEEOJW1687-70-21 07:22:000.0[facility] [employer] KMSYRVBZTY3688-19-93 07:22:006.9[facility] NncslnnEHJUUMQWMZ6503-77-02 07:22:009.6 [facility] MykbveqCFHOIZNWHL1679-40-74 07:22:005.2[facility] HermannHEMATOLOGY 2011-02-21 07:22:000.3[facility] JgezpzpBPLTXDAJTB7736-78-94 07:22:002.3[facility] CryukpwQKZJKIVZXP8273-20-61 07:22:0057.5[facility] VetchvbGXOZYQGYXR6892-42-44 07:22:0025.7[facility] GdtnuzbLEDIZQICYU7097-34-99 07:22:0034.1[facility] NVEKBGQPSD1028-27-90 07:22:14899.0[facility] CicdgzxBITTPMEGRT0269-84-08 07:22:00 16.2[facility] HeifmalLFSRRFRDMY6804-61-09 07:22:007.8[facility]annHEMATOLOGY 2011-02-21 07:22:0032.4[facility] IimvhrxVUBCCMVYID8286-94-57 07:22:0096.0[facility] UscsgecQPQJXGLZYS3549-05-54 07:22:00 Test Item Value Reference Range Interpretation Comments MCH (test code = MCH) 32.7 pg 27.0-31.0 H [facility] DayykpwDASPJMRORY9206-63-08 07:22:003.38[facility]annHEMATOLOGY 2011-02-21 07:22:0011.0[facility] BmzdwsuUKVPFXGIGH2516-39-50 07:22:009.0[facility] HtynvzjMFIWEBQND4342-81-30 14:50:003.1[facility] RcxkvzsEDTXZGTMX7042-73-57 05:50:003.4[facility] SzmlsrkIBUNBBBTF1535-16-17 05:50:005.08[facility] KYTGHVWTV8570-24-67 05:50:001.28[facility] EpqmtucGAGDHNAMH4133-27-19 05:50:001.27 [facility] UvuacyzXSKCGULYH2758-77-91 05:50:005.12[facility]Y 2011-02-20 05:50:0095.8[facility] IvqgctjYETOTKKRFW9846-71-13 05:50:17998.0 [facility] ZefwuxgRPOSXFZJTW0796-51-73 05:50:007.8[facility]annHEMATOLOGY 2011-02-20 05:50:00 Test Item Value Reference Range Interpretation Comments MCH (test code = MCH) 32.2 pg 27.0-31.0 H [facility] TxpynngMIBNQYCIMK9361-98-46 05:50:0033.7[facility]annHEMATOLOGY 2011-02-20 05:50:0016.5[facility] XbxzbmlUVUGKJUAOH1654-26-03 05:50:003.19[facility] WorvbghXLXLSITLWZ4461-98-32 05:50:006.9[facility] RxwbgiwGNQFOHOLCO5928-26-63 05:50:000.4[facility] OjodphcCHUQYQCBHH4090-30-55 05:50:000.0[facility] [employer] CUDRMTTKSY2441-10-91 05:50:000.6[facility] NgjfrqlJTODYJANME1084-84-23 05:50:00 63.4[facility] RbjphppFCYLCMYASX8343-73-94 05:50:0020.5[facility]annHEMATOLOGY 2011-02-20 05:50:009.3[facility] NatqerjEUCCJANXXK0526-24-70 05:50:006.4[facility] KjarqovWLSPRAQZTU6885-60-68 05:50:000.4[facility] OhjckkjUSTYAHRAQZ0887-51-55 05:50:004.4[facility] XyyxzhwQIMYDXPIFB0628-27-66 05:50:001.4[facility] [employer] UGPRAOGMT8911-23-45 21:20:001.02[facility] IydsgpfEAFVHIYYF4031-87-40 21:20:004.08 [facility] HxwzatpTWJFZTYPI9043-61-07 21:20:004.12[facility]annCHEMISTRY 2011-02-19 21:20:001.03[facility] DmbjqkoVZZAZRQIZ3004-33-59 21:20:0066.0[facility] TwhmweuTTTADNDCO4087-59-42 21:20:000.8[facility] BrenkyoTSITFUUMJ4889-27-12 21:20:002.3[facility] NzydtbvPJWDWQHVT8250-53-36 21:20:004.8[facility] [employer] QTLOKITPJ2137-30-90 21:20:0067.0[facility] BprqvyaIRFULQIQZ5294-06-31 21:20:002.5 [facility] YthdpkrRLZVDBVJJ5543-41-09 21:20:00 Test Item Value Reference Range Interpretation Comments A/G Ratio (test code = A/G Ratio) 0.9 1 0.7-1.6 N [facility] WcfprdmFPUTHUYZF9594-92-07 21:20:97252.0[facility]annCHEMISTRY 2011-02-19 21:20:00 Test Item Value Reference Range Interpretation Comments B/C Ratio (test code = B/C Ratio) 20.0 1 6-25 N [facility] CerjimiIORXHUPIBA2407-72-32 21:20:00 Test Item Value Reference Range Interpretation Comments PTT (test code = PTT) 29.4 s 22.9-35.8 N [facility] AllianceSudgyttHJCPVQJZML7662-90-67 21:20:00 Test Item Value Reference Range Interpretation Comments PT (test code = PT) 13.9 s 12.0-14.7 N [facility] AllianceOepdwkrFIWACXJPCH8803-99-19 21:20:00 Test Item Value Reference Range Interpretation Comments INR (test code = INR) 1.07 1 0.85-1.17 N [facility] AllianceUpevpkvGYKWEWXESQ2539-02-24 21:20:003.4[facility]annHEMATOLOGY 2011-02-19 21:20:00 Test Item Value Reference Range Interpretation Comments MCH (test code = MCH) 32.2 pg 27.0-31.0 H [facility] RalcalkNDQHIDGNRM8825-07-58 21:20:0095.7[facility]annHEMATOLOGY 2011-02-19 21:20:0033.6[facility] RsmwovqSJGAWNWOHG2504-20-58 21:20:0016.7[facility] XftappiAFZZYDLUYL5912-76-35 21:20:007.8[facility] VqrxxfcVADIGDQTHX9074-54-28 21:20:23472.0[facility] SoyvolmJOMKJDRQFD1501-61-17 21:20:007.4[facility] [employer] ESBHGNFLCZ8498-13-93 21:20:008.7[facility] FyifaibIZQQANTUTG3829-76-71 21:20:00 15.6[facility] QczxxfdHDNNAOCJQU2508-04-32 21:20:001.1[facility]annHEMATOLOGY 2011-02-19 21:20:000.6[facility] RidkgsdYHCIEMCWKF7563-62-85 21:20:005.3[facility] ZunjcjvLERFFJMMCP6164-35-78 21:20:005.1[facility] MeeeljzTDPYTAYBMK2458-79-76 21:20:000.6[facility] GllskkwWHXHLZPUHI0473-33-28 21:20:0069.8[facility] [employer] FENCNJPYWN4492-33-42 21:20:000.4[facility] JszneyaCBQRMXABTT2231-80-87 21:20:000.0 [facility] GinbkszDOFBZHDGG7650-67-93 21:00:001.1[facility]annCHEMISTRY 2011-02-19 17:32:98615.0[facility] LzeidnkTCQEJVYYT4419-71-96 17:32:000.6[facility] BlcnnqrMBWDYFKMD1155-69-22 17:32:001.08[facility] KeojjckJJHZUZKTI1306-78-82 17:32:18734.0[facility] JuzldzeDLGLATIXX2476-46-19 17:32:0029.0[facility] RQMXEJRSB3493-94-22 17:32:003.3[facility] UbcranhZKJIJFBPP3807-09-42 17:32:02648.0 [facility] QiluybhTCQKVXATV0214-60-97 17:32:0022.0[facility]annCHEMISTRY 2011-02-19 17:32:00-4.0[facility] PrlwyzyCZWORVXBM1375-14-24 17:32:00 Test Item Value Reference Range Interpretation Comments POC A pH (test code = POC A pH) 7.33 1 7.35-7.45 L [facility] IlibqqtVNCZEBKJS9337-28-09 17:32:0041.0[facility]annCHEMISTRY 2011-02-19 17:32:0037.0[facility] NrfrucbFRAVNHKHX3216-41-08 17:32:32758.0[facility] HermannBODY QHFPHE6453-61-65 16:00:0039.0[facility]annBODY XROZUA5288-07-23 16:00:0070.0[facility]annBODY DGZTKB1003-03-56 16:00:001.0[facility] BODY MIOFDO7372-69-08 16:00:00Light Red *ABN*(02/19/2011 11:00:00) ??[facility]annB[facility] FZRKXI4010-68-30 16:00:00Slight *ABN*(02/19/2011 11:00:00) ?? [facility]ann[facility] KIIICD9483-67-94 16:00:00Colorless (02/19/2011 11:00:00) ?? [facility] VFJSND5425-88-10 16:00:752627.0[facility]annB[facility] FLUIDS 2011-02-19 16:00:00xxxxxxx (02/19/2011 11:00:00) ??[facility]annCHEMISTRY 2011-02-19 15:35:50453.0[facility] KvklxyiVJCHIFZEC7491-72-37 15:35:003.2[facility] UswylxuBFQLUYIYS4997-40-60 15:35:001.1[facility] GpanrupDCXVFDTAP6657-11-28 15:35:000.7[facility] MfjhzudQUAZLNEOC2873-08-98 15:35:00 Test Item Value Reference Range Interpretation Comments POC A pH (test code = POC A pH) 7.35 1 7.35-7.45 L [facility] NpnstsvHPKZJZDST0902-51-20 15:35:0037.0[facility]annCHEMISTRY 2011-02-19 15:35:00-3.0[facility] VytpqqjUGYQNPUXT5381-11-29 15:35:0041.0[facility] WrcpthrOFKQEWFQO6463-17-87 15:35:65445.0[facility] VsbwqmvYZEIDBJWH0748-66-82 15:35:0023.0[facility] WrfjcomFUWYVGVMA3562-56-02 15:35:04646.0[facility] CKPYBKJKS3317-80-27 15:35:17609.0[facility] YmtsojaVEYKZKWXY4323-82-03 15:35:00 29.0[facility]annBLOOD BANK TIEQVKY2843-22-96 15:33:00Negative (02/19/2011 10:33:00) ??[facility] BucqhuxNQWVKVLQC5378-02-68 14:06:003.7[facility] MZREEAFYH3820-57-86 14:06:001.1[facility] YktotbwKUMIXJKNE9129-33-19 14:06:07764.0 [facility] EyflpfoMXBGOAKNB2461-19-28 14:06:001.0[facility]annCHEMISTRY 2011-02-19 14:06:58997.0[facility] NxutaqhOBYLVIXWG9722-69-27 14:06:00 Test Item Value Reference Range Interpretation Comments POC A pH (test code = POC A pH) 7.43 1 7.35-7.45 N [facility] DonnyrmMDYSTABKV1259-70-00 14:06:31899.0[facility]annCHEMISTRY 2011-02-19 14:06:00-1.0[facility] KeufchmGENFQFIAC0796-80-20 14:06:0023.0[facility] ZhrhaudXJPMPDRMC0674-31-25 14:06:19007.0[facility] WnebrlcPRCSPBBMI9158-88-36 14:06:0034.0[facility] HtxqbylYRSYVRDGK0018-20-05 14:06:0037.0[facility] RXDSJHIYN2337-78-76 14:06:0034.0[facility] ShfcmqsTDBZFVFAL4937-38-01 11:00:0012.0 [facility] WplztizEVLGEANKK7789-27-92 11:00:71252.0[facility]annCHEMISTRY 2011-02-19 11:00:0012.0[facility] OjbcnwkXKAYSGCSD8499-19-79 11:00:000.6[facility] JjzeqyqOGDTWTFYY7102-20-04 11:00:0024.0[facility] HrmnpjqFHKIPSSTQ8334-58-11 11:00:007.9[facility] QdqewhzXDWRZLPJR2808-98-73 11:00:004.0[facility] [employer] ZQYXTOFHY4219-78-18 11:00:48705.0[facility] AogfvbuMPSUOZSZN2810-42-35 11:00:00 99.0[facility] KejjbhwCGBKBZOGXO5212-22-28 11:00:002.4[facility]annHEMATOLOGY 2011-02-19 11:00:000.7[facility] PpvpmeuWPQXOPZEJX0653-89-71 11:00:000.0[facility] WesalrsZCEUPNRQDT1328-00-94 11:00:000.6[facility] UpzjjmwSEPFKEYASP8874-61-72 11:00:002.4[facility] KhssrclSGOWUFCGHC1074-36-03 11:00:0010.9[facility] [employer] KXXVAMNSEN8336-51-17 11:00:000.8[facility] JkewzfjEEEOZMGFME2029-51-63 11:00:009.4 [facility] OwrxsrxKRSHTPFUTP9532-24-49 11:00:0039.3[facility]annHEMATOLOGY 2011-02-19 11:00:0039.6[facility] AvfifvrHYPISCVRDE2893-34-01 11:00:008.2[facility] XwxgegqGYECFDSYJG2779-10-80 11:00:33607.0[facility] StwdffgESQVCDZJPU6559-79-88 11:00:00 Test Item Value Reference Range Interpretation Comments MCH (test code = MCH) 32.9 pg 27.0-31.0 H [facility] PzxybfuJQVGVRPBRD1483-32-73 11:00:0094.8[facility]annHEMATOLOGY 2011-02-19 11:00:0034.7[facility] UjhlfkxJYNHCQQVRZ7629-01-50 11:00:0016.4[facility] CrekfmkVKWCJFVHNL3651-96-65 11:00:0010.7[facility] QxidzmzFFZMMGDNXC8572-57-65 11:00:003.26[facility] CdxtnsiSOYNJZDICL8948-29-47 11:00:0030.9[facility] [employer] OOXVPPDENT1628-19-89 11:00:006.2[facility] RxkiuyeVYXUBHRHYG4339-44-27 11:00:00 Test Item Value Reference Range Interpretation Comments INR (test code = INR) 1.0 1 0.85-1.17 N [facility] AllianceCgrlflvGPOYBANCYU8089-62-00 11:00:00 Test Item Value Reference Range Interpretation Comments PT (test code = PT) 13.2 s 12.0-14.7 N [facility] AllianceKtbehcfHUTRSEIYOC8167-76-73 11:00:00 Test Item Value Reference Range Interpretation Comments PTT (test code = PTT) 30.3 s 22.9-35.8 N [facility] HAFXKZO8734-06-25 10:22:66519.0[facility] [employer] [facility] BEDSIDE GLUCOSE HWUBOUF1916-75-96 02:28:18289.0[facility]annBEDSIDE GL[facility]SE YRWJEPP7694-97-42 00:46:19067.0[facility] PknajdoQZCTIUBUMH5526-79-84 08:39:0094.3 [facility] IuypywiNPBZISAGCT8594-35-52 08:39:0033.1[facility]annHEMATOLOGY 2011-02-18 08:39:0016.6[facility] KevuybvIUZEZUIYSZ2407-42-92 08:39:00 Test Item Value Reference Range Interpretation Comments MCH (test code = MCH) 32.8 pg 27.0-31.0 H [facility] SbusyayBHDUJKODLO4273-04-44 08:39:0034.7[facility]annHEMATOLOGY 2011-02-18 08:39:007.9[facility] SwctkgmSWOPRKFVGP0572-20-16 08:39:91578.0[facility] UqcvkpnRNFTBCOZKT3139-93-52 08:39:006.4[facility] PgmpswzAZLXLBXHPM8461-86-75 08:39:003.51[facility] HhgiaxaNFANJPMOLG8459-32-05 08:39:0011.5[facility] HZVXJFWRIQ6825-74-15 07:48:008.1[facility] MkycweaJJMERPNQDU2547-93-30 07:48:00 Test Item Value Reference Range Interpretation Comments MCH (test code = MCH) 32.7 pg 27.0-31.0 H [facility] VjczsebCJVKEAKOYG7675-37-96 07:48:0095.1[facility]annHEMATOLOGY 2011-02-15 07:48:0034.3[facility] AdfhpjpVTUXWGVRFH3570-16-79 07:48:29632.0 [facility] SywsvgbTWFUDMSVTT8575-09-11 07:48:0016.5[facility]annHEMATOLOGY 2011-02-15 07:48:0012.9[facility] VtwmzrpPYIIVDYHCN4507-35-95 07:48:0034.1[facility] GwjjrtwTMPGGHABHQ8951-08-50 07:48:0011.7[facility] RalnkkkYQLLISVCPE0593-38-88 07:48:003.58[facility] NgtnauvLOZJFUXZKA4120-54-48 07:48:000.1[facility] FRCFYUAELY5749-01-26 07:48:000.4[facility] MkhydyeZDPYGKUCRY8749-36-79 07:48:000.6 [facility] TwuetmjTIBSNQXQDU3147-91-62 07:48:004.8[facility]annHEMATOLOGY 2011-02-15 07:48:0026.8[facility] EqgtzciAKYMFRUURK1774-86-01 07:48:003.5[facility] MtzrzhgNPZMSYVVYS3415-64-06 07:48:008.3[facility] KxlwwxkCYGYBNXTJO0659-62-03 07:48:000.8[facility] ZmhoqwwPTTRGIUEIC8730-95-94 07:48:003.0[facility] [employer] KWXSUUPLRK5754-17-84 07:48:0064.6[facility] ZchjzztGONTQYDYI5469-89-64 09:47:003.1 [facility] SlciysmMNYJYIWWP1250-47-91 09:47:002.7[facility]annCHEMISTRY 2011-02-13 09:47:005.8[facility] BlvqlkjKSJNBFDJQ2608-44-16 09:47:00 Test Item Value Reference Range Interpretation Comments B/C Ratio (test code = B/C Ratio) 43.0 1 6-25 H [facility] KplofosWRQRVLTNK9606-98-18 09:47:00 Test Item Value Reference Range Interpretation Comments A/G Ratio (test code = A/G Ratio) 0.9 1 0.7-1.6 N [facility] XmpbcvlDIMSNOYNU0571-61-58 09:47:0052.0[facility]annCHEMISTRY 2011-02-13 09:47:59861.0[facility] RdzepfqEFZYMIUHY9359-13-38 09:47:00>60.0 [facility] FcrfoqmGMPTLGMMN3745-54-88 09:47:0016.9[facility]annCHEMISTRY 2011-02-13 09:47:008.5[facility] TfqexgpSJPMHNLSS8721-51-53 09:47:000.6[facility] IvqpyqbLLHWDTKXU3890-30-96 09:47:0049.0[facility] BwbsweyRCGJGSEEJ0925-67-80 09:47:0097.0[facility] NuurxhdZMVGCBZIU0525-02-70 09:47:004.9[facility] [employer] IATQBMSPR2875-66-47 09:47:000.4[facility] WcwahlgMGFDAXWRE2504-84-47 09:47:60507.0 [facility] YijcemmDFMQWMQUP0540-21-74 09:47:05091.0[facility]annCHEMISTRY 2011-02-13 09:47:0017.0[facility] RdufpjiYOUJSYUXS6547-83-60 09:47:0025.0[facility] OsrtpfhSEJQCAPPC6396-50-26 10:09:0018.6[facility] FrrryveLXBMHAMIY3615-67-46 10:09:008.3[facility] RoxdjppWBBTBLGBD7081-86-62 10:09:0063.0[facility] BKLQZKQGD8464-92-14 10:09:0019.0[facility] MramslbQXZITPPPY8586-54-43 10:09:000.7 [facility] TzzlxifKOZTPBYMZ6033-93-31 10:09:58226.0[facility]annCHEMISTRY 2011-02-12 10:09:0097.0[facility] JrtmglqMPRBRNPYF2834-41-84 10:09:003.6[facility] UfdkdzaKIESQEKCV8914-00-15 10:09:0023.0[facility] OnlkbabNBJLNTNRFR1043-84-37 10:09:001.0[facility] PsegngaAEJNFPIAMW9917-41-21 10:09:000.1[facility] [employer] AVWGBHJCWD3482-13-62 10:09:000.2[facility] PjjaodsDLMJABIDGB7431-77-08 10:09:004.9 [facility] IhtyccsMSBBPQKEOG1640-91-00 10:09:000.7[facility]annHEMATOLOGY 2011-02-12 10:09:0012.2[facility] IgftdzjCKJIKUMVYN9081-76-66 10:09:005.5[facility] ErumcebHXEMTVIDDV3590-39-89 10:09:001.1[facility] FojjjsvZXUCRTMBXI7855-70-51 10:09:0066.2[facility] MyyyjdrTUZLXYMGRW7949-92-85 10:09:0026.5[facility] [employer] CUAFRMIOY6283-01-21 19:00:001.8[facility] MkztctaLELMSDJHV7925-02-53 19:00:0057.0 [facility] YuasoffYUDLFLRLF1275-76-40 19:00:006.8[facility]annCHEMISTRY 2011-02-11 19:00:003.2[facility] XsdurziWNQEGTJOY5552-63-36 19:00:003.6[facility] OllligoDRJAMHTVW6314-91-03 19:00:00 Test Item Value Reference Range Interpretation Comments A/G Ratio (test code = A/G Ratio) 0.9 1 0.7-1.6 N [facility] BvzctfgGPTDJEFYO5884-11-79 19:00:0059.0[facility]annCHEMISTRY 2011-02-11 19:00:87360.0[facility] DrppzddMFMVYDTLM8034-81-04 19:00:000.7[facility] FtnuhjeIOUQFJHSW1089-87-89 19:00:00 Test Item Value Reference Range Interpretation Comments B/C Ratio (test code = B/C Ratio) 45.0 1 6-25 H [facility] TnykghfUMCLFRAQUB8165-86-12 19:00:001+ *ABN*(02/11/2011 14:00:00) ?? [facility] HermannSTOOL CGFFH8964-13-21 05:59:00None Seen 4(02/11/2011 00:59:00) ??[facility] YzieobaATDGIKHMB6005-79-24 19:39:00 Test Item Value Reference Range Interpretation Comments eGFR (test code = eGFR) 48.0 1 [facility] OaftqhhAHWYXVPFG4925-22-80 19:39:003.0[facility]annCHEMISTRY 2011-02-10 19:39:00 Test Item Value Reference Range Interpretation Comments A/G Ratio (test code = A/G Ratio) 1.0 1 0.7-1.6 N [facility] MlfrjlhKUSGCJNQV6636-19-63 19:39:00 Test Item Value Reference Range Interpretation Comments B/C Ratio (test code = B/C Ratio) 23.0 1 6-25 N [facility] JiwdwqrMZIMSNGAG5087-45-65 19:39:0031.0[facility]annCHEMISTRY 2011-02-10 19:39:003.1[facility] PqqgjliCPZMPZUAA5808-67-54 19:39:0064.0[facility] IiiljvbKMWDACQBU8627-51-99 19:39:006.1[facility] LuunqeiPSBKSQJWM4181-29-75 19:39:000.5[facility] KuffwupZOVWVCGTA7964-97-91 19:39:33381.0[facility] [employer] LKLFNNCGQM6528-98-12 10:19:00Slight (02/08/2011 05:19:00) ??[facility] YFGKQFGWCW4481-96-98 10:19:00Slight (02/08/2011 05:19:00) ??[facility] AXRWNJLLRL2782-39-77 10:19:001+ *ABN*(02/08/2011 05:19:00) ??[facility] CFKYWFZMFI6417-95-49 10:19:00Normal (02/08/2011 05:19:00) ??[facility] SZAWVCDENG3985-06-31 08:33:000.0[facility]annBLOOD BANK UBMSAAX8326-00-13 19:12:00Negative (02/05/2011 14:12:00) ??[facility] DvypivzXDIYSVCOP2339-63-56 02:09:0064.0[facility] IvnwmntWHHDAQTGW5218-89-86 02:09:000.03[facility] DDQMYZOJU5577-09-62 18:20:0071.0[facility] LazpujnNJBDPMOXY8286-32-04 18:20:000.05 [facility] JhxyyaoPOCIJBCTWH4680-39-02 22:21:00??[facility] HermannURINALYSIS 2011-02-02 22:21:00Negative (02/02/2011 17:21:00) ??[facility]annURINALYSIS 2011-02-02 22:21:00<1.0[facility] OclrhcvBLQZQZQREO7334-26-53 22:21:00 Occasional /HPF *NA*(02/02/2011 17:21:00) ??[facility] WoijzaqLHLYZOSLVE8465-10-45 22:21:00Negative (02/02/2011 17:21:00) ??[facility] XzdvphiCRMOEEERYZ6950-79-96 22:21:00Negative mg/dL *NA*(02/02/2011 17:21:00) ??[facility] HermannURINALYSIS 2011-02-02 22:21:00Negative *NA*(02/02/2011 17:21:00) ??[facility] Jorge Alberto OVEKESEBOO1267-29-39 22:21:00Negative (02/02/2011 17:21:00) ??[facility] Jorge Alberto EYYQXEXIBJ2938-58-16 22:21:00Negative mg/dL (02/02/2011 17:21:00) ??[facility] TkoetblQGPJMNSLUN1734-62-65 22:21:00Negative mg/dL *NA*(02/02/2011 17:21:00) ?? [facility] TspboubXZBFCWROAJ1348-02-48 22:21:00Light Yellow *NA*(02/02/2011 17:21:00) ??[facility] SkfydpeJSRFUYXWQX8744-31-87 22:21:00Clear (02/02/2011 17:21:00) ??[facility] DgzsktrSVCQBDDPXM3622-21-46 22:21:00 Test Item Value Reference Range Interpretation Comments UA Spec Grav (test code = UA Spec 1.004 1 N Grav) [facility] IbmvlvuYYYBODFWSR3883-77-31 22:21:00 Test Item Value Reference Range Interpretation Comments UA pH (test code = UA pH) 7.0 1 5.0-8.0 N [facility] GdxypqkXXBVOPAXH4290-18-62 10:30:000.98[facility] HermannCHEMISTRY 2011-02-01 10:30:000.711[facility] HhubikgPAVQPCZEDG0868-48-95 10:30:0019.4 [facility] HermannBEDSIDE GLUCOSE URSBSHN5763-15-35 10:46:14753.0[facility] IGUJRLEBS5031-73-95 08:36:002.9[facility] ZkxexynCQXSTXNQQ1793-32-46 08:36:0024.0 [facility] KqtmqcaMJTKUOJAT8219-73-47 08:36:007.7[facility] HermannCHEMISTRY 2011-01-31 08:36:59974.0[facility] VcjfyhsBWIEMXWAK5375-45-17 08:36:03332.0 [facility] QqdwbsnKHVHOQCAB6148-17-85 08:36:003.9[facility] HermannCHEMISTRY 2011-01-31 08:36:0017.0[facility] EnkdlfpSOTAVXMES8641-16-72 08:36:000.7[facility] VybfwemQMGDKZFFA3520-57-97 08:36:45724.0[facility] PltvhnlLIDVXHXXP1248-64-33 08:36:0017.9[facility] UartlqoDHONTYQSO7616-65-91 08:36:001.9[facility] LODZYHDXP1839-56-03 08:36:001.13[facility] LqhmyalQHRVUUWRY9108-55-50 08:36:001.09 [facility] TiyomfoHAWXJZGTW9339-56-72 08:36:004.52[facility] HermannCHEMISTRY 2011-01-31 08:36:004.36[facility] VjwgcvcTENPLPGKOV4296-05-14 08:36:00Slight *ABN*(01/31/2011 03:36:00) ??[facility] PodgapfOQAHQOCHIY7978-35-26 08:36:001.4 [facility] HjmrxadLOURZWYOJZ4268-95-49 08:36:003.0[facility] HermannHEMATOLOGY 2011-01-31 08:36:0018.6[facility] KxecqojUCJYMBUSVD8671-63-01 08:36:001.6[facility] XpohzrcRZGHRDUPFB6341-77-90 08:36:002.0[facility] FckrpszUFNNRBQNEU6573-39-34 08:36:007.0[facility] GvtcaylPRNXLCOEQO1771-80-91 08:36:006.0[facility] [employer] XLJKSYLRYX8888-45-54 08:36:0079.0[facility] TavvopjDKPIGZVNJG0370-60-20 08:36:00 2.0[facility] WugbqkmRIMWDOBRPY9460-32-49 08:36:00Slight (01/31/2011 03:36:00) ?? [facility] EumdluvUSMOQGAURN1127-27-54 08:36:00Slight (01/31/2011 03:36:00) ?? [facility] XcskovmDUMZNLZSCZ1794-32-53 08:36:00Present *ABN*(01/31/2011 03:36:00) ??[facility] NodotjcWRRARULZDA7926-92-46 08:36:000.0[facility] 2011-01-31 08:36:001.0[facility] ScldbwiJMKBSFGKSA5263-60-19 08:36:0015.3[facility] IrkzeugUPZEOKUPJT3825-05-67 08:36:0010.1[facility] OztruawNXCEEUQRPQ5839-49-49 08:36:42551.0[facility] MwixfcjAFJEREDKFJ5549-01-19 08:36:0037.3[facility] ARLZKUZLLA5251-71-77 08:36:0032.7[facility] ZcqpnfoBFSJOSLZYJ1850-30-81 08:36:00 94.8[facility] KcxinufIWTYLCDWCH7965-92-28 08:36:00 Test Item Value Reference Range Interpretation Comments MCH (test code = MCH) 31.0 pg 27.0-31.0 N [facility] IpdsbsdGQMQMTZQYE6133-77-72 08:36:0023.0[facility] 2011-01-31 08:36:003.93[facility] NsehwxaEPBATCECRA7333-86-02 08:36:0012.2[facility] HermannBEDSIDE GLUCOSE NASIAPB2791-53-83 05:49:40322.0[facility] HermannBEDSIDE GLUCOSE IPTPSPX1892-37-46 01:36:62360.0[facility] LuhgzjjDPLJLWZAH9057-96-95 15:02:002.7[facility] SsupaeuOFQOUIVGI7148-73-69 15:02:003.7[facility] XHBIBIDCO4728-62-30 15:02:004.2[facility] XhznflqTGVKBWMMD2354-42-14 15:02:004.24 [facility] MzyfdthQJSPLATBA6176-19-97 15:02:001.05[facility]annCHEMISTRY 2011-01-29 15:02:001.06[facility] UuvwrciJUZUEHVFE7761-68-05 15:02:002.4[facility] RhrlrlmCZRYVOPYR9730-71-11 15:02:0015.0[facility] RzqttfiVNYZQWDMS3800-47-37 15:02:0023.0[facility] OsbqlbsWBUGHMMUH6875-90-06 15:02:000.8[facility] KMYHMCRAZ7515-38-87 15:02:46789.0[facility] ZqrxyhbRSVKFZVNH0981-54-45 15:02:004.0 [facility] BflydauWNNXMVOSZ0892-78-26 15:02:51092.0[facility]annCHEMISTRY 2011-01-29 15:02:20358.0[facility] ZyoeooiATJIYDKNR7539-57-32 15:02:0024.0[facility] QjdkntfEEWEJZQZO6810-18-76 15:02:007.8[facility] BerccgrIZKYJHSVID6430-51-85 15:02:00Slight *ABN*(01/29/2011 10:02:00) ??[facility] YfctuliIFUGKVVUUH0274-89-61 15:02:00Slight (01/29/2011 10:02:00) ??[facility] TmwjtrdIZTAWPGMTQ8423-54-97 15:02:000.0[facility] GzajayhAVTYMQFYEI9905-43-56 15:02:001.0[facility] [employer] VWPVKYRFXZ6126-59-25 15:02:0081.0[facility] GiwzylkLVCBVAFWMF5802-51-35 15:02:00 9.0[facility] JjwjwguWTUSWEKNYY1878-40-43 15:02:005.0[facility]annHEMATOLOGY 2011-01-29 15:02:001.0[facility] DmabzpiYKTDUABAXT3419-71-72 15:02:002.0[facility] AvjopgvMMEICVYUVD1862-83-76 15:02:002.0[facility] KtncelqRGACYSPCCW2140-83-81 15:02:001.0[facility] XgledtaQWHTXQVSEO6500-00-85 15:02:001.8[facility] [employer] UDDQWGDZUF1333-22-25 15:02:0016.3[facility] BdyidjpXJYXNKSHOL7687-55-76 15:02:00 9.4[facility] LmolfseAKAKFNMPFQ1550-92-60 15:02:0033.9[facility]annHEMATOLOGY 2011-01-29 15:02:0094.0[facility] DdofnahTHGHCVJLGO2360-70-79 15:02:00 Test Item Value Reference Range Interpretation Comments MCH (test code = MCH) 31.5 pg 27.0-31.0 H [facility] LgfthrtLGVVGGIUQW3815-34-51 15:02:0033.6[facility]annHEMATOLOGY 2011-01-29 15:02:0016.1[facility] JlzgywsVCOEIOEPPP8725-99-04 15:02:10485.0 [facility] XnnrrmlPTLKLZTUTP7787-70-70 15:02:0019.6[facility]annHEMATOLOGY 2011-01-29 15:02:0011.4[facility] ParyczzJMNNKDXALG9015-53-60 15:02:003.61[facility] LigdrehHLMUFEUSU8610-63-78 06:30:0014.2[facility] HfymrnyYZLHFAGCG7037-37-22 06:30:70867.0[facility] CuetgvmZWIEVTZQW1921-87-39 06:30:94622.0[facility] HXVCSAZKP6364-93-48 06:30:003.2[facility] QabuuseKUEXJAWKD2425-34-78 06:30:0025.0 [facility] ZidgezjMGQEEWRNG2748-94-40 06:30:007.5[facility]annCHEMISTRY 2011-01-28 06:30:0057.0[facility] XzqcsnuHJSNCBZNI6084-34-39 06:30:0021.0[facility] XypxhpxUWADLBFBC9972-77-86 06:30:000.7[facility] DcivdqgVQVIPBJOX1100-06-17 06:30:003.2[facility] SevlflhEKVEVOUZS2504-69-08 06:30:002.2[facility] [employer] BRCDWSSPT8714-35-39 06:30:001.09[facility] DypnfeyCXXFGOPOL2273-22-34 06:30:001.06 [facility] FsflumrFQZPIEGWP6704-47-36 06:30:004.36[facility]annCHEMISTRY 2011-01-28 06:30:004.24[facility] DwcrygfCGLDDGQBWI8555-71-71 06:30:13592.0 [facility] OwxusngHXXRPUYZPJ1096-57-36 06:30:0010.4[facility]annHEMATOLOGY 2011-01-28 06:30:00 Test Item Value Reference Range Interpretation Comments MCH (test code = MCH) 31.1 pg 27.0-31.0 H [facility] SeoguwxEPMNZICCMA9429-53-07 06:30:0033.3[facility]annHEMATOLOGY 2011-01-28 06:30:0016.0[facility] NrjuorkNBJCEHNRGE2700-55-48 06:30:0032.3[facility] WrsodriZUHYZWZMMD5654-70-78 06:30:0093.5[facility] XrrwknvASSDPESSTI0266-14-46 06:30:003.45[facility] GfffrhcDUHJZQSTWD9213-71-99 06:30:0010.7[facility] [employer] SUXAYOSRSN6722-81-36 06:30:0020.1[facility] NkwywekIVIEPBQJMD6583-03-95 06:30:00 0.0[facility] UhvzmyvNZRSEEWTNJ7285-44-59 06:30:004.1[facility]annHEMATOLOGY 2011-01-28 06:30:0018.0[facility] RldzesxWFHAIONMND4933-92-55 06:30:000.0[facility] RzgcajaPSXGDPGPDU0483-12-27 06:30:006.6[facility] AusavhiXMUUPGMRMC0870-55-54 06:30:000.0[facility] GaxivufQJDEMZQQDS4827-88-01 06:30:000.0[facility] WLKZVUVJFP2576-07-77 06:30:000.8[facility] VrfswzdSSLJZQYFWB1865-13-34 06:30:001.3 [facility] KhokpfiNMAZHVJHXX4022-01-00 06:30:0089.3[facility]annCHEMISTRY 2011-01-27 09:07:58394.0[facility] AkzchjuCEJYRPVEZ9152-16-30 09:07:00 Test Item Value Reference Range Interpretation Comments POC A pH (test code = POC A pH) 7.56 1 7.35-7.45 H [facility] UgotdtqZAQOIEYGW7088-15-11 09:07:08595.0[facility]annCHEMISTRY 2011-01-27 09:07:0037.0[facility] SrcnippEBVQNBXAW3676-69-98 09:07:004.0[facility] UwxdjrwMQDYXYHCH9574-49-40 09:07:99588.0[facility] XhkbfjkCKZEXQLJL0369-13-08 09:07:0025.0[facility] XpmhtwyBQUOYVFLU3603-79-99 09:07:0028.0[facility] MEAEODPWQ5283-55-66 05:14:56185.0[facility] CvpalrfQEWPIMYXYR9216-30-66 05:14:00 Test Item Value Reference Range Interpretation Comments PTT (test code = PTT) 25.2 s 22.9-35.8 N [facility] YrpkrxuUZKHZSAXWI6168-80-57 05:14:00 Test Item Value Reference Range Interpretation Comments PT (test code = PT) 15.8 s 12.0-14.7 [facility] GbfglqjCYIVDQGIRM9208-45-02 05:14:00 Test Item Value Reference Range Interpretation Comments INR (test code = INR) 1.26 1 0.85-1.17 H [facility] LqvwukaNMJUPZAHMC6207-70-59 05:14:000.0[facility]annHEMATOLOGY 2011-01-27 05:14:000.2[facility] BhquuojPLQYMZEVIT3131-27-20 05:14:000.0[facility] YkooddbEUDAVDBPJT2882-03-73 05:14:000.0[facility] ZpijbeuTEAHMZBBF8427-03-21 20:09:49896.0[facility] IppesykGYLZAAFYYW0401-07-58 20:09:000.0[facility] [employer] QCORVAIFBB8975-85-88 20:09:000.0[facility] VdrggujGDTRSEFDPQ4809-18-21 20:09:000.0 [facility] ReiyfxtAKQYLQNZNG2521-89-45 20:09:000.1[facility]annHEMATOLOGY 2011-01-26 20:09:00 Test Item Value Reference Range Interpretation Comments PTT (test code = PTT) 29.8 s 22.9-35.8 N [facility] PckyfsiTNRHRTTDQH1448-66-41 20:09:00 Test Item Value Reference Range Interpretation Comments PT (test code = PT) 15.4 s 12.0-14.7 H [facility] WnchmljCSASMZCUYD7578-33-47 20:09:00 Test Item Value Reference Range Interpretation Comments INR (test code = INR) 1.22 1 0.85-1.17 H [facility] VzwofhbDILORGMYN7233-80-83 18:43:08572.0[facility] HermannCHEMISTRY 2011-01-26 18:43:000.8[facility] FsdxfmjZTRGFGYSO1126-21-45 18:43:001.17[facility] TupvgbcPDDVKHZOO6398-01-59 18:43:003.6[facility] LwmkujlRNGZLKQBR7494-72-52 18:43:37501.0[facility] GmyvndgFHBZIOTJO9671-43-78 18:43:0080.0[facility] FHVWRJPZF6614-15-55 18:43:0040.0[facility] BtxyxsvWOOUAYNYR2443-09-42 18:43:0037.0 [facility] UwkmrmhIQEIEOSLX2474-54-29 18:43:00 Test Item Value Reference Range Interpretation Comments POC A pH (test code = POC A pH) 7.4 1 7.35-7.45 N [facility] RmzskauEGLQUYDGY9271-51-42 18:43:0034.0[facility] HermannCHEMISTRY 2011-01-26 18:43:000.0[facility] HoyqhmeFEHQCEQNL6360-83-78 18:43:0096.0[facility] RwovdrzSDHIYXXGH4474-28-04 18:43:0025.0[facility] AcusicsIFAZPGXTG7541-17-42 17:57:0096.0[facility] PqkuxqzCCGFJSQGF5434-84-06 17:57:003.[facility] VIPSGQJCJ6728-14-55 17:57:000.8[facility] ShouzreWQSQLZVAU3280-21-16 17:57:89453.0 [facility] XcwzixwPRIQVKFWE5925-68-87 17:57:0037.0[facility] HermannCHEMISTRY 2011-01-26 17:57:0025.0[facility] XqcunqfDCKWXGTUB1889-94-45 17:57:0079.0[facility] FdoscltZJFKDQXHH7562-28-30 17:57:0038.0[facility] UevrdwoQPMWYQVHT5882-71-94 17:57:00 Test Item Value Reference Range Interpretation Comments POC A pH (test code = POC A pH) 7.42 1 7.35-7.45 N [facility] NweesfqLJGGWWVYJ2517-03-52 17:57:000.0[facility] HermannCHEMISTRY 2011-01-26 17:57:001.22[facility] LxtyimyMRESHIBOQ1148-48-83 17:57:65906.0[facility] XljomjzALWCJXHIB5380-50-87 17:57:0036.0[facility] SvipbxeIGQYPRXMW9451-01-80 17:01:0041.0[facility] EyzygerFJRRUASHL7335-24-48 17:01:16971.0[facility] [employer] JUCVSZUUZ1898-69-77 17:01:001.05[facility] VxmoktgTUCTFXKDC7596-20-31 17:01:003.6 [facility] VqgrbliPDHSDQOWZ9483-38-11 17:01:000.8[facility] HermannCHEMISTRY 2011-01-26 17:01:76875.0[facility]annBLOOD BANK RLXJLJY0354-70-09 14:00:00 Negative (01/26/2011 09:00:00) ??[facility] FxtcknsZWOIFSYXKV6906-65-73 05:15:00 Test Item Value Reference Range Interpretation Comments PTT (test code = PTT) 28.2 s 22.9-35.8 N [facility] JtbwuzoLDRRJONCNK2600-65-90 05:15:00 Test Item Value Reference Range Interpretation Comments INR (test code = INR) 1.24 1 0.85-1.17 H [facility] BmevubfHLGVRFZBXP6575-24-77 05:15:00 Test Item Value Reference Range Interpretation Comments PT (test code = PT) 15.6 s 12.0-14.7 H [facility] ThkzeotAICCILLQM6472-85-87 12:56:00 Test Item Value Reference Range Interpretation Comments CK MB Index (test code = CK MB Index) 0.4 1 <=2.5 N [facility] HshrjonSVKOIRUBN4883-00-52 12:56:001.1[facility] HermannCHEMISTRY 2011-01-25 12:56:25289.0[facility] ItckkrfNDUDAKKKG8048-66-76 12:56:00<0.01 [facility] GmwkueeYFUJERYGG6593-90-72 12:56:88673.0[facility] HermannCHEMISTRY 2011-01-25 05:15:13522.0[facility] PqpfvrxFLSMSBMAR6426-48-93 05:15:00<0.01 [facility] HipnwemENJPIGMTZ7659-52-15 05:15:00 Test Item Value Reference Range Interpretation Comments CK MB Index (test code = CK MB Index) 0.7 1 <=2.5 N [facility] IksiqyyJORCNELGB8305-66-98 05:15:001.5[facility] HermannCHEMISTRY 2011-01-25 00:16:002.4[facility] SkbonhcZPVKOSSXMD9181-56-08 00:16:00Slight *ABN*(01/24/2011 19:16:00) ??[facility] QcabvvsSUNQIWEFPJ4991-48-16 00:16:002.0 [facility] EsxbsygXWFLCCHVRH9285-65-26 00:16:00Normal (01/24/2011 19:16:00) ?? [facility] DgasgdmLVBBNGDCH9332-63-54 20:01:00<0.01[facility] HermannCHEMISTRY 2011-01-24 20:01:0060.0[facility] GutbxvoEOLSQWTJR6451-58-39 20:01:0034.0[facility] PricezaannMDC MediaOOD BANK DEJQBRE0073-66-38 08:15:00Negative (01/24/2011 03:15:00) ?? [facility] PricezaannOncimmune RFIBFIL1702-66-45 08:15:00Product available (01/24/2011 03:15:00) ??[facility] PricezaannBLEventstagr.am BANK XSQJVEP2927-19-28 08:15:00 Product available (01/24/2011 03:15:00) ??[facility] QprquvyJKAESGDIV4000-35-48 16:30:00 Test Item Value Reference Range Interpretation Comments CK MB Index (test code = CK MB Index) 1.2 1 <=2.5 N [facility] OhedqgyQPYFGKGIB8327-04-66 16:30:001.2[facility] HermannCHEMISTRY 2011-01-23 16:30:008.7[facility] ObkspddYMIDHSBPW5995-94-62 16:30:00<0.02 [facility] GbbfdcyQWKLSKQVPS4512-33-35 10:29:00??[facility] HermannURINALYSIS 2011-01-23 10:29:00Occasional /LPF *NA*(01/23/2011 05:29:00) [facility] OSUVWDXLFZ5431-85-93 10:29:00<1.0[facility] SmljioaSPZQAKCGVC6682-05-15 10:29:00Few /LPF *NA*(01/23/2011 05:29:00) ??[facility] HermannURINALYSIS 2011-01-23 10:29:00<1.0[facility] UgcvdhmXAIMQTPXND2751-06-26 10:29:00Negative mg/dL (01/23/2011 05:29:00) ??[facility] AllianceBuoakuzWWEOPKAUTJ7127-26-95 10:29:00 Negative (01/23/2011 05:29:00) ??[facility] AllianceWjzdbrcTFUBTBOXOS7893-19-51 10:29:00 Negative (01/23/2011 05:29:00) ??[facility] AllianceNbkydggNXNDCBGNJE9628-23-28 10:29:00 Negative *NA*(01/23/2011 05:29:00) ??[facility] AllianceWiamxlzUCZYZNBXBQ9672-36-68 10:29:53120 mg/dL *ABN*(01/23/2011 05:29:00) ??[facility] HermannURINALYSIS 2011-01-23 10:29:00Negative (01/23/2011 05:29:00) ??[facility] 2011-01-23 10:29:00 Test Item Value Reference Range Interpretation Comments UA pH (test code = UA pH) 5.0 1 5.0-8.0 N [facility] AllianceEhqvmqfHJBYPFJRCJ5481-86-94 10:29:00 Test Item Value Reference Range Interpretation Comments UA Spec Grav (test code = UA Spec 1.01 1 N Grav) [facility] AllianceGuvhcgjINYIXTMSYS2712-42-40 10:29:00Clear (01/23/2011 05:29:00) ?? [facility] CenterHbxlvqoIKKHVGFDZR5305-67-61 10:29:00Yellow *NA*(01/23/2011 05:29:00) ?? [facility] MVVDKWTB0111-23-34 10:00:00Negative 1(01/23/2011 05:00:00) ??[facility]
--- OUTSIDE RECORDS SUMMARY | 2020-04-11 16:58 | XMS REPORT | Summary of Care ---
[...] Still, SHEKHAR Start : 12-Nov-2018 Active Pyridostigmine Underwood 60 MG Oral Tablet TAKE 1 TABLET [...]
--- OUTSIDE RECORDS SUMMARY | 2020-04-11 16:58 | XMS REPORT | Summary of Care ---
:1945 Author Name NOELLE Still Address [address] [address] Care Team Providers Name Role Phone NOELLE [...] Still, SHEKHAR Start : 12-Nov-2018 Active Pyridostigmine Olden 60 MG Oral Tablet TAKE 1 TABLET [...] (finding) Vital Signs Date Test Result Details [id number] Systolic blood pressure 144 mm[Hg] Status: Diastolic [...]
--- OUTSIDE RECORDS SUMMARY | 2020-04-11 16:58 | XMS REPORT | Summary of Care ---
[...] Still, SHEKHAR Start : 12-Nov-2018 Active Pyridostigmine Keyes 60 MG Oral Tablet TAKE 1 TABLET [...] (finding) Vital Signs Date Test Result Details [id number] Systolic blood pressure 144 mm[Hg] Status: Diastolic [...]
--- NOTE | 2020-04-11 17:42 | RAD REPORT ---
EXAM DESCRIPTION: RAD - Chest Single View - 04/11/2020 5:27 pm CLINICAL HISTORY: COUGH, leg pain and swelling, CHF history COMPARISON: Portable March 16 TECHNIQUE: AP portable chest image was obtained 04/11/2020 5:27 pm . FINDINGS: No peripheral mass consolidation. Interstitial markings are prominent but not substantiall y different from the comparison. Left-sided Port-A-Cath remains in place. No significant failure or v olume overload findings. Heart size is upper normal, accentuated by portable imaging. No acute vascular engorgement. Mediasti num is distorted by rotation. No measurable pleural effusion and no pneumothorax. No acute bony abnor mality seen. No acute aortic findings suspected. IMPRESSION: No acute cardiopulmonary process. No significant change from comparison.
[2020-04-11 17:57] LABS: Absolute Lymphocytes (CBC) 0.6 K/uL (0.7-4.9); Basophils % 0.2 % (0-1.3); Hematocrit 26.6 % (36.0-45.0); Lymphocytes % 1.7 % (15.3-44.8); MPV 9.9 fL (7.6-11.3); Protime INR 1.42; RBC Red Blood Cell Count 3.57 M/uL (3.86-4.86)
[2020-04-11 18:20] LABS: Hypersegmented Neutrophils PRESENT; Platelet Estimate ADEQ
[2020-04-11 18:21] LABS: Anisocytosis 1+; Blood Morphology Comment NOTED (NOT SEEN)
[2020-04-11] MEDS ORDERED: PANTOPRAZOLE 40 MG INJ ONE (18:33)
[2020-04-11] MEDS ORDERED: Meropenem 1 GM/100 ML BAG ONE (18:33)
--- NOTE | 2020-04-11 18:35 | ER ---
Nurse's Notes [facility] Name: Franci Lange Age: 75 yrs Sex: Female : 1945 Arrival Date: 04/11/2020 Time: 16:16 Bed 13 Private MD: Diagnosis: Cellulitis and acute lymphangitis of other parts of limb;Obesity, unspecified;Elevated white blood cell count;Anemia, unspecified;Bandemia;Myasthenia gravis;Type 2 diabetes mellitus Presentation: 04/11 16:17 Chief complaint: EMS states: Worsening left leg redness and swelling z 1 week. hb Coronavirus screen: At this time, the client does not indicate any symptoms associated with coronavirus-19. Ebola Screen: No symptoms or risks identified at this time. Initial Sepsis Screen: Does the patient meet any 2 criteria? No. Patient's initial sepsis screen is negative. Does the patient have a suspected source of infection? No. Patient's initial sepsis screen is negative. Risk Assessment: Do you want to hurt yourself or someone else? Patient reports no desire to harm self or others. Onset of symptoms was April 04, 2020. 16:17 Method Of Arrival: EMS: [facility] hb 16:17 Acuity: JAY 3 hb 17:37 Acuity: JAY 2 hb Historical: - Allergies: 16:19 Aspirin; hb 16:19 cefepime; hb 16:19 CEPHALOSPORINS; hb 16:19 Ciprofloxacin; hb 16:19 Cortisone; hb 16:19 Cortizone-10; hb 16:19 Erythromycin; hb 16:19 IVIG; hb 16:19 PENICILLINS; hb 16:19 Phenobarbital; hb 16:19 Tape; hb - Home Meds: 16:21 amlodipine 10 mg tab 1 tab once daily [Active]; clonazepam 0.5 mg Oral tab 1 tab daily hb [Active]; furosemide 20 mg Oral tab 1 tab nightly [Active]; Levemir 100 unit/mL subcutaneous soln 25 unit nightly [Active]; levothyroxine 88 mcg tab 1 tab once daily [Active]; Novolog 10 units Sub-Q soln before meals [Active]; potassium chloride 10 mEq Oral cpER 1 cap 3 times per day [Active]; prednisone 20 mg Oral tab 1 tab once daily [Active]; pyridostigmine bromide 60 mg Oral tab 1 tab 3 times per day [Active]; ramipril 2.5 mg Oral cap 1 cap once daily [Active]; rosuvastatin 20 mg Oral tab 1 tab nightly [Active]; sertraline 25 mg Oral tab 1 tab once daily [Active]; - PMHx: 16:21 Ankylosing Spondylitis; Anxiety; CHF; Depression; Diabetes - IDDM; High Cholesterol; hb Hypertension; Hypothyroidism; Myasthenia Gravis; Myocardial infarction; Osteoporosis; - PSHx: 16:21 brain shunt; meningioma; neck sx; spinal sx; Carpal Tunnel Repair; Cholecystectomy; hb - Immunization history:: Adult Immunizations up to date. - Social history:: Smoking status: Patient denies any tobacco usage or history of. - Family history:: not pertinent. Screenin:16 Abuse screen: Denies threats or abuse. Nutritional screening: No deficits noted. tw2 Tuberculosis screening: No symptoms or risk factors identified. Fall Risk Secondary diagnosis (15 points) impaired mobility. Assessment: 16:20 General: Appears in no apparent distress. obese, well groomed, Behavior is calm, tw2 cooperative, appropriate for age. Pain: Denies pain. Neuro: Level of Consciousness is awake, alert, obeys commands, Oriented to person, place. Cardiovascular: Heart tones S1 S2 Patient's skin is warm and dry. Edema is 2+ to left midcalf, left ankle, left foot, right midcalf, right ankle and right foot. Respiratory: Airway is patent Respiratory effort is even, unlabored. GI: Abdomen is round non-distended, obese, Bowel sounds present X 4 quads. : No signs and/or symptoms were reported regarding the genitourinary system. EENT: No signs and/or symptoms were reported regarding the EENT system. Derm: redness and swelling noted to left LE. Musculoskeletal: Range of motion: intact in all extremities. 16:50 Reassessment: provider at bedside at this time. tw2 17:30 Reassessment: pt pulled blood pressure cuff off, refusing BP at this time, provider tw2 notified. Reassessment: Patient appears in no apparent distress at this time. Patient and/or family updated on plan of care and expected duration. Pain level reassessed. 18:30 Reassessment: Patient appears in no apparent distress at this time. Patient and/or tw2 family updated on plan of care and expected duration. Pain level reassessed. 19:00 Reassessment: Patient appears in no apparent distress at this time. Patient and/or jb4 family updated on plan of care and expected duration. Pain level reassessed. PT is resting in bed with at the bedside. Respirations are even, labored, tachypneic and symmetrical. 20:15 Reassessment: Patient appears in no apparent distress at this time. No changes from jb4 previously documented assessment. Patient and/or family updated on plan of care and expected duration. Pain level reassessed. 20:41 Reassessment: Patient appears in no apparent distress at this time. Patient and/or jb4 family updated on plan of care and expected duration. Pain level reassessed. PT remains tachypneic, with labored respirations, remains A\T\Ox4, pt admitted to ER HOLD, see [facility] for further documentation. IV site, clean dry and intact, antibiotics infusing with ease. Vital Signs: 16:17 BP 144 / 56; Pulse 89; Resp 18; Temp 98.7; Pulse Ox 97% on R/A; hb 16:27 Weight 87.09 kg (R); Height 4 ft. 11 in. (149.86 cm) (R); tw2 18:15 BP 133 / 69; Pulse 90; Resp 30; Pulse Ox 96% on R/A; hb 19:03 BP 104 / 81; Pulse 94; Resp 28; Pulse Ox 100% on R/A; tw2 20:15 BP 137 / 48; Pulse 85; Resp 25; Pulse Ox 98% ; jb4 16:27 Body Mass Index 38.78 (87.09 kg, 149.86 cm) tw2 ED Course: 16:16 Patient arrived in ED. [place] 16:16 Luther Vang MD is Attending Physician. [place] 16:17 Bed in low position. Side rails up X2. collection specialist on. Pulse ox on. NIBP on. Warm tw2 blanket given. 16:18 Triage completed. hb 16:19 Arm band placed on. hb 16:25 Lorena Mensah RN is Primary Nurse. tw2 17:28 XRAY Chest (1 view) In Process Unspecified. EDMS 17:37 Inserted saline lock: 22 gauge in left ,using aseptic technique. shoulder Blood hb collected. 18:13 US Extremity Venous W Compression Alexander In Process Unspecified. EDNC 18:31 Raj Loaiza DO is Hospitalizing Provider. [place] 18:36 Accessed Port-a-Cath. using accessed w/ # 20 Donahue needle, ,sterile technique, per 2 hospital protocol. Clean \T\ dry. Dressing intact. Good blood return. Flushes easily. 18:45 Enriquez cath inserted, using sterile technique, 16 Fr., by pr, balloon inflated, to dh3 gravity drainage, urine specimen collected. returned mar urine. Patient tolerated well. 19:00 Report given to REANY Salas. tw2 20:42 No provider procedures requiring assistance completed. Patient admitted, IV remains in jb4 place. Administered Medications: 18:28 Drug: ProTONIX 40 mg Route: IVP; Site: left upper arm; tw2 18:50 Follow up: Response: No adverse reaction tw2 18:30 Drug: Meropenem 1 grams Route: IV; Rate: per protocol; Site: left upper arm; tw2 19:01 Follow up: Response: No adverse reaction; IV Status: Completed infusion; IV Intake: tw2 100ml 19:01 Drug: vancoMYCIN 1 grams Route: IVPB; Infused Over: 2 hrs; Site: left upper arm; tw2 Intake: 19:01 IV: 100ml; Total: 100ml. tw2 Outcome: 18:34 Decision to Hospitalize by Provider. [place] 20:41 Admitted to ER Hold. Please see [facility] for further documentation. jb4 20:41 Condition: stable 20:41 Discharge instructions given to patient, family, Instructed on the need for admit, Demonstrated understanding of instructions. 21:18 Patient left the ED. jb4 Signatures: Dispatcher [employer] [facility] Luther Vang MD MD cha Baxter, Heather, RN RN Lorena Mensah RN RN [facility] Leoncio Davey RN RN [facility] Chel Villatoro 3 Corrections: (The following items were deleted from the chart) 16:29 16:27 87 kg Reported; Height 4 ft. 11 in. Reported; BMI: 38.7; tw2 tw2 16:50 16:20 Cardiovascular: Heart tones S1 S2 Patient's skin is warm and dry. tw2 tw2
--- NOTE | 2020-04-11 18:35 | EDPHYS ---
Physician Documentation [facility] Name: Franci Lange Age: 75 yrs Sex: Female : 1945 Arrival Date: 04/11/2020 Time: 16:16 Bed 13 Private MD: ED Physician Luther Vang HPI: 04/11 17:10 This 75 yrs old Female presents to ER via EMS with complaints of Leg Swelling.[place] 17:10 The patient presents with decreased range of motion, pain, swelling, tenderness. The augusta complaints affect the right leg and left leg. Context: The problem was sustained at an unknown site, resulted from an unknown cause. Onset: The symptoms/episode began/occurred 3 day(s) ago. Modifying factors: The symptoms are alleviated by nothing. the symptoms are aggravated by movement, weight bearing. Associated signs and symptoms: The patient has no apparent associated signs or symptoms. weal, bed ridden, bilateral le edema. Severity of symptoms: At their worst the symptoms were mild moderate in the emergency department the symptoms are unchanged. Historical: - Allergies: 16:19 Aspirin; hb 16:19 cefepime; hb 16:19 CEPHALOSPORINS; hb 16:19 Ciprofloxacin; hb 16:19 Cortisone; hb 16:19 Cortizone-10; hb 16:19 Erythromycin; hb 16:19 IVIG; hb 16:19 PENICILLINS; hb 16:19 Phenobarbital; hb 16:19 Tape; hb - Home Meds: 16:21 amlodipine 10 mg tab 1 tab once daily [Active]; clonazepam 0.5 mg Oral tab 1 tab daily hb [Active]; furosemide 20 mg Oral tab 1 tab nightly [Active]; Levemir 100 unit/mL subcutaneous soln 25 unit nightly [Active]; levothyroxine 88 mcg tab 1 tab once daily [Active]; Novolog 10 units Sub-Q soln before meals [Active]; potassium chloride 10 mEq Oral cpER 1 cap 3 times per day [Active]; prednisone 20 mg Oral tab 1 tab once daily [Active]; pyridostigmine bromide 60 mg Oral tab 1 tab 3 times per day [Active]; ramipril 2.5 mg Oral cap 1 cap once daily [Active]; rosuvastatin 20 mg Oral tab 1 tab nightly [Active]; sertraline 25 mg Oral tab 1 tab once daily [Active]; - PMHx: 16:21 Ankylosing Spondylitis; Anxiety; CHF; Depression; Diabetes - IDDM; High Cholesterol; hb Hypertension; Hypothyroidism; Myasthenia Gravis; Myocardial infarction; Osteoporosis; - PSHx: 16:21 brain shunt; meningioma; neck sx; spinal sx; Carpal Tunnel Repair; Cholecystectomy; hb - Immunization history:: Adult Immunizations up to date. - Social history:: Smoking status: Patient denies any tobacco usage or history of. - Family history:: not pertinent. ROS: 17:10 Constitutional: Negative for fever, chills, and weight loss, Eyes: Negative for injury, [place] pain, redness, and discharge, ENT: Negative for injury, pain, and discharge, Neck: Negative for injury, pain, and swelling, Cardiovascular: Negative for chest pain, palpitations, and edema, Respiratory: Negative for shortness of breath, cough, wheezing, and pleuritic chest pain, Back: Negative for injury and pain, : Negative for injury, bleeding, discharge, and swelling, Neuro: Negative for headache, weakness, numbness, tingling, and seizure, Psych: Negative for depression, anxiety, suicide ideation, homicidal ideation, and hallucinations, Allergy/Immunology: Negative for hives, rash, and allergies, Endocrine: Negative for neck swelling, polydipsia, polyuria, polyphagia, and marked weight changes, Hematologic/Lymphatic: Negative for swollen nodes, abnormal bleeding, and unusual bruising. 17:10 Abdomen/GI: Positive for abdominal distension. 17:10 MS/extremity: Positive for decreased range of motion, pain, swelling, tenderness, of the right leg and left leg. Exam: 17:10 Constitutional: This is a well developed, well nourished patient who is awake, alert, augusta and in no acute distress. Head/Face: Normocephalic, atraumatic. Eyes: Pupils equal round and reactive to light, extra-ocular motions intact. Lids and lashes normal. Conjunctiva and sclera are non-icteric and not injected. Cornea within normal limits. Periorbital areas with no swelling, redness, or edema. ENT: Nares patent. No nasal discharge, no septal abnormalities noted. Tympanic membranes are normal and external auditory canals are clear. Oropharynx with no redness, swelling, or masses, exudates, or evidence of obstruction, uvula midline. Mucous membranes moist. Neck: Trachea midline, no thyromegaly or masses palpated, and no cervical lymphadenopathy. Supple, full range of motion without nuchal rigidity, or vertebral point tenderness. No Meningismus. Chest/axilla: Normal chest wall appearance and motion. Nontender with no deformity. No lesions are appreciated. Cardiovascular: Regular rate and rhythm with a normal S1 and S2. No gallops, murmurs, or rubs. Normal PMI, no JVD. No pulse deficits. Respiratory: Lungs have equal breath sounds bilaterally, clear to auscultation and percussion. No rales, rhonchi or wheezes noted. No increased work of breathing, no retractions or nasal flaring. Abdomen/GI: Soft, non-tender, with normal bowel sounds. No distension or tympany. No guarding or rebound. No evidence of tenderness throughout. Back: No spinal tenderness. No costovertebral tenderness. Full range of motion. Skin: Warm, dry with normal turgor. Normal color with no rashes, no lesions, and no evidence of cellulitis. Psych: Awake, alert, with orientation to person, place and time. Behavior, mood, and affect are within normal limits. 17:10 Musculoskeletal/extremity: Circulation is intact in all extremities. Sensation intact. Compartment Syndrome exam of affected extremity: is normal. DVT Exam: no erythema, no increased warmth, swelling, tenderness, positive Homans' sign noted on exam, bluish discoloration. 17:10 Skin: Appearance: ecchymosis, swelling, noted on the right leg and left leg. 18:29 Abdomen/GI: Rectal exam: is unremarkable, rectal tone normal, Stool: guaiac negative, augusta hemorrhoid(s), are not appreciated, mass, is not appreciated, swelling, is not appreciated, tenderness, is not appreciated, fecal impaction, is not appreciated. 18:44 Musculoskeletal/extremity: Extremities: noted in the lateral aspect of right calf, [place] right ankle, lateral aspect of right foot, right calf, right Achilles, medial aspect of right calf, medial aspect of right foot, right rocha, anterior aspect of right ankle and dorsum of right foot: erythema, pain, swelling, tenderness. 19:23 ECG was reviewed by the Attending Physician. [facility] Vital Signs: 16:17 BP 144 / 56; Pulse 89; Resp 18; Temp 98.7; Pulse Ox 97% on R/A; hb 16:27 Weight 87.09 kg (R); Height 4 ft. 11 in. (149.86 cm) (R); tw2 18:15 BP 133 / 69; Pulse 90; Resp 30; Pulse Ox 96% on R/A; hb 19:03 BP 104 / 81; Pulse 94; Resp 28; Pulse Ox 100% on R/A; tw2 20:15 BP 137 / 48; Pulse 85; Resp 25; Pulse Ox 98% ; jb4 16:27 Body Mass Index 38.78 (87.09 kg, 149.86 cm) tw2 MDM: 16:16 Patient medically screened. [place] 17:14 Differential diagnosis: contusion. Differential Diagnosis altered mental status, aug[place] sepsis. Data reviewed: vital signs, nurses notes, lab test result(s), EKG, radiologic studies, CT scan, plain films. Data interpreted: monitor and storage bin tender: rate is 89 beats/min, rhythm is regular, Pulse oximetry: on room air is 97 %. Test interpretation: by ED physician or midlevel provider: ECG, plain radiologic studies. Counseling: I had a detailed discussion with the patient and/or guardian regarding: the historical points, exam findings, and any diagnostic results supporting the discharge/admit diagnosis, the presence of at least one elevated blood pressure reading (>120/80) during this emergency department visit, lab results, the need for further work-up and treatment in the hospital. 04/11 17:02 Order name: Basic Metabolic Panel [facility] 04/11 17:02 Order name: CBC with Diff [facility] 04/11 17:02 Order name: LFT's [facility] 04/11 17:02 Order name: Magnesium [facility] 04/11 17:02 Order name: NT PRO-BNP [facility] 04/11 17:02 Order name: PT-INR; Complete Time: 18:15 [facility] 04/11 17:02 Order name: Troponin (emerg Dept Use Only); Complete Time: 19:08 [facility] 04/11 17:02 Order name: Urine Culture [facility] 04/11 17:02 Order name: Blood Culture Adult (2) [facility] 04/11 17:02 Order name: Lactate; Complete Time: 18:15 [facility] 04/11 17:03 Order name: Basic Metabolic Panel; Complete Time: 19:08 [facility] 04/11 17:03 Order name: CBC with Automated Diff; Complete Time: 18:28 [facility] 04/11 17:03 Order name: Liver (Hepatic) Function; Complete Time: 19:08 [facility] 04/11 17:03 Order name: Magnesium; Complete Time: 19:08 [facility] 04/11 17:02 Order name: XRAY Chest (1 view); Complete Time: 18:10 [facility] 04/11 17:02 Order name: EKG; Complete Time: 17:04 [facility] 04/11 17:02 Order name: Cardiac monitoring; Complete Time: 18:52 [facility] 04/11 17:02 Order name: IV Saline Lock; Complete Time: 18:52 [facility] 04/11 17:02 Order name: US Extremity Venous W Compression Alexander; Complete Time: 19:08 [facility] 04/11 17:03 Order name: NT PRO-BNP; Complete Time: 19:08 [facility] 04/11 17:07 Order name: TS 04/11 18:17 Order name: Bb Add On hb 04/11 18:19 Order name: Manual Differential; Complete Time: 18:28 [facility] 04/11 18:24 Order name: Packed RBC Leukored [facility] 04/11 19:02 Order name: Urine Dipstick--Ancillary (enter results) 04/11 20:57 Order name: Antibody Identification [facility] 04/11 17:02 Order name: Labs collected and sent; Complete Time: 18:52 [facility] 04/11 17:02 Order name: O2 Per Protocol; Complete Time: 18:52 [facility] 04/11 17:02 Order name: O2 Sat Monitoring; Complete Time: 18:58 [facility] 04/11 17:02 Order name: Urine Dipstick-Ancillary (obtain specimen); Complete Time: 18:57 [facility] 04/11 17:58 Order name: Labs - recollect needed: recollect type and screen and c7; Complete Time: bd 18:49 04/11 18:15 Order name: Misc. Order: access port a cath; Complete Time: 18:39 [facility] 04/11 18:30 Order name: Enriquez; Complete Time: 18:50 [facility] EC:23 Rate is 95 beats/min. Rhythm is regular. QRS [place] is Normal. [place] interval is normal. QRS [place] interval is normal. QT interval is normal. No Q waves. T waves are Normal. No ST changes noted. Clinical impression: NSR w/ Non-specific ST/T Changes and No evidence of ischemia. Interpreted by me. Reviewed by me. Administered Medications: 18:28 Drug: ProTONIX 40 mg Route: IVP; Site: left upper arm; tw2 18:50 Follow up: Response: No adverse reaction tw2 18:30 Drug: Meropenem 1 grams Route: IV; Rate: per protocol; Site: left upper arm; tw2 19:01 Follow up: Response: No adverse reaction; IV Status: Completed infusion; IV Intake: tw2 100ml 19:01 Drug: vancoMYCIN 1 grams Route: IVPB; Infused Over: 2 hrs; Site: left upper arm; tw2 Disposition: 04/11/20 18:34 Hospitalization ordered by Raj Loaiza for Inpatient Admission. Preliminary diagnosis are Cellulitis and acute lymphangitis of other parts of limb, Obesity, unspecified, Elevated white blood cell count, Anemia, unspecified, Bandemia, Myasthenia gravis, Type 2 diabetes mellitus. - Bed requested for Telemetry/MedSurg (Inpatient). - Status is Inpatient Admission. jb4 - Condition is Fair. - Problem is new. - Symptoms have improved. Signatures: Dispatcher [employer] EDMS Luli Meade Corey, MD MD cha Lasagna, Tonya, RN RN tl1 Alice Ramirez RN RN hb Wise, Tara, RN RN tw2 Leoncio Davey, RENAY RN jb4 Corrections: (The following items were deleted from the chart) 20:49 18:34 Hospitalization Ordered by Raj Loaiza DO for Inpatient Admission. Preliminary tl1 diagnosis is Cellulitis and acute lymphangitis of other parts of limb; Obesity, unspecified; Elevated white blood cell count; Anemia, unspecified; Bandemia; Myasthenia gravis; Type 2 diabetes mellitus. Bed requested for Telemetry/MedSurg (Inpatient). Status is Inpatient Admission. Condition is Fair. Problem is new. Symptoms have improved. [place] 21:18 20:49 04/11/2020 18:34 Hospitalization Ordered by Raj Loaiza DO for Inpatient jb4 Admission. Preliminary diagnosis is Cellulitis and acute lymphangitis of other parts of limb; Obesity, unspecified; Elevated white blood cell count; Anemia, unspecified; Bandemia; Myasthenia gravis; Type 2 diabetes mellitus. Bed requested for Telemetry/MedSurg (Inpatient). Status is Inpatient Admission. Condition is Fair. Problem is new. Symptoms have improved. tl1
[2020-04-11 18:56] LABS: Albumin 2.6 g/dL (3.4-5.0); Bilirubin Direct 0.4 mg/dL (0-0.2); Bilirubin Total 0.7 mg/dL (0.2-1.0); Potassium 4.5 mmol/L (3.5-5.1); Protein, Total 6.5 g/dL (6.4-8.2); Troponin (Emerg Dept Use Only) 0.02 ng/mL (0.0-0.045)
[2020-04-11] MEDS ORDERED: VANCOMYCIN/NS 1 gm 1 GM/250 ML BAG IVPB ONE (19:00)
--- NOTE | 2020-04-11 19:00 | RAD REPORT ---
EXAM DESCRIPTION: US - Extrem Venous W Compress Alexander - 04/11/2020 6:13 pm CLINICAL HISTORY: PAIN COMPARISON: None. TECHNIQUE: Real-time sonographic evaluation of the bilateral lower extremity common femoral, superfi cial femoral, popliteal and posterior tibial veins was performed. FINDINGS: Normal compressibility, flow augmentation, phasic flow and spontaneous flow are identified in the left and right lower extremity common femoral, superficial femoral, popliteal and posterior t ibial veins. No intraluminal filling defects seen. IMPRESSION: No DVT in either lower extremity.
[2020-04-11] MEDS ORDERED: ACETAMINOPHEN 500 MG TAB PO PRN (20:38)
[2020-04-11] MEDS ORDERED: ONDANSETRON 4 MG/2 ML VIAL IV PRN (20:38)
[2020-04-11] MEDS ORDERED: VANCOMYCIN/NS 1 gm 1 GM/250 ML BAG IVPB SCH (20:38)
[2020-04-11] MEDS: INSULIN -REGULAR HUMAN 50 UNIT/0.5 ML ML SQ SCH (21:00)
[2020-04-11] MEDS ORDERED: clonazePAM 1 MG TAB PO ONE (21:21)
[2020-04-11] MEDS ORDERED: clonazePAM 0.5 MG TAB ONE (21:22)
[2020-04-11 21:47] VITALS: BMI 37.8
[2020-04-11] MEDS: VANCOMYCIN 1.5 GM in NA CHLORIDE 0.9% 500 ML IVPB SCH (22:00)
[2020-04-11] MEDS ORDERED: VANCOMYCIN 500 MG in NA CHLORIDE 0.9% 100 ML IVPB ONE (22:30)
--- NOTE | 2020-04-11 22:39 | P.HP ---
Certification for Inpatient Patient admitted to: Inpatient With expected LOS: >2 Midnights Patient will require the following post-hospital care: None Practitioner: I am a practitioner with admitting privileges, knowledge of patient current condition, hospital course, and medical plan of care. Services: Services provided to patient in accordance with Admission requirements found in Title 42 Section 412.3 of the Code of Federal Regulations <Dean Ford - Last Filed: 04/11/20 22:33> Patient History Date of Service: 04/11/20 Primary Care Provider: Dr. Pearson Reason for admission: Cellulitis History of Present Illness: 75-year-old female with history of myasthenia gravis, diabetes mellitus type 2, hypertension, hyperlipidemia, hypothyroidism presented to the emergency department for right lower extremity redness and swelling. Patient and reports that she has been having bilateral lower extremity swelling for the last couple of days but noticed the redness and warmth to her right lower extremity yesterday. Patient was evaluated in the emergency department found to have significantly elevated white blood cell count at 31.9, 3% band. Patient also anemic with hemoglobin 7.9 and hematocrit 26.6. No active bleeding reported. Patient had ultrasound bilateral lower extremities which ruled out DVT. ED provider wishes to admit patient for further evaluation and management. When I saw the patient in the emergency department she is awake, alert, oriented x3. Patient with significant edema of bilateral lower extremities with 2+ pitting edema bilaterally to the level of the rocha and significant erythema and warmth to the right lower extremity. Vital signs stable this time, patient does not appear septic, lactic acid normal. Patient be admitted for further evaluation and management. - Past Medical/Surgical History Has patient received pneumonia vaccine in the past: No Diabetic: Yes -: CKD stage 2 -: Benign neoplasm of cerebral meninges -: Hypertension -: COPD -: Chronic diastolic congestive heart failure -: Myasthenia gravis -: Spinal stenosis -: Dementia -: Brain surgery x 2 -: section x 3 -: Cholecystectomy -: neck surgery -: carpal tunnel surgery Psychosocial/ Personal History: Patient lives at [facility] - Family History Family History: Reviewed- Non-Contributory - Family History Mother -: Heart disease Notes: 93y/o , still living Father -: Heart disease Notes: - Social History Smoking Status: Never smoker Alcohol use: No CD- Drugs: No Caffeine use: No Place of Residence: Home <Dean Ford - Last Filed: 04/11/20 22:33> Date of Service: 04/12/20 Home medications list reviewed: Yes <Raj Loaiza - Last Filed: 04/12/20 09:29> Allergies aspirin Allergy (Verified 04/14/19 06:10) Shortness of breath ciprofloxacin [From Cipro] Allergy (Verified 04/14/19 06:10) Anaphylaxis cortisone Allergy (Verified 04/14/19 06:10) Hives/Rash Penicillins Allergy (Verified 04/14/19 06:10) Hives/Rash phenobarbital Allergy (Verified 04/14/19 06:10) Itching/Hives/Rash Iv IG Allergy (Uncoded 04/11/20 21:43) Itching/Hives/Rash Home Medications: Amlodipine [Norvasc*] 10 mg PO DAILY 04/14/19 Furosemide [Lasix*] 20 mg PO DAILY 04/14/19 Insulin Aspart [Novolog Flexpen] 10 unit SQ TIDWM 04/14/19 Insulin Detemir [Levemir] 25 units SQ 0700,2000 04/14/19 Levothyroxine [Synthroid*] 88 mcg PO [id number] 04/14/19 Melatonin [Melatonin*] 6 mg PO BEDTIME PRN 04/14/19 Potassium Chloride [Micro-K] 10 meq PO BID 04/14/19 Pyridostigmine [place] [Mestinon*] 1 tab PO 0700,1500,2300 04/14/19 Rosuvastatin Calcium [Crestor] 20 mg PO DAILY 04/14/19 Sertraline HCl 25 mg PO BEDTIME 04/14/19 predniSONE [Prednisone*] 20 mg PO DAILY 04/14/19 clonazePAM [Klonopin*] 0.5 mg PO BID #60 tab 02/10/20 Ramipril 2.5 mg PO DAILY 03/16/20 Ergocalciferol (Vitamin D2) [Vitamin D2] 1.25 mg PO EVERY 7TH DAY 04/12/20 azaTHIOprine [Azathioprine] 1 tab PO BID 04/12/20 Review of Systems Respiratory: Shortness of Breath Musculoskeletal: Pedal edema, As per HPI <Dean Ford - Last Filed: 04/11/20 22:33> Physical Examination - Vital Signs Temperature: 98.5 F Blood Pressure: 142/63 Pulse: 90 Respirations: 24 - Physical Exam General: Alert, In no apparent distress, Oriented x3 HEENT: Atraumatic, Normocephalic Neck: Supple Respiratory: Crackles/rales (Mild bibasilar) Cardiovascular: Edema (2+ pitting edema bilateral lower extremities to the level of the rocha) Capillary refill: <2 Seconds Gastrointestinal: Normal bowel sounds, Soft and benign Musculoskeletal: Swelling (Right lower extremity), Erythema, Tenderness, Warmth Integumentary: Tenderness/swelling (Right lower extremity), Erythema, Warmth Neurological: Normal speech, Normal tone Lymphatics: No axilla or inguinal lymphadenopathy - Studies Laboratory Data (last 24 hrs) 04/11/20 17:30: PT 16.6 H, INR 1.42 04/11/20 17:30: WBC 31.9 H* D, Hgb 7.9 L*, Hct 26.6 L, Plt Count 204 D 04/11/20 17:30: Sodium 138, Potassium 4.5, BUN 27 H, Creatinine 1.13, Glucose 172 H, Magnesium 2.0, Total Bilirubin 0.7, AST 50 H, ALT 64, Alkaline Phosphatase 200 H <Dean Ford - Last Filed: 04/11/20 22:33> - Studies Laboratory Data (last 24 hrs) 04/11/20 17:30: PT 16.6 H, INR 1.42 04/11/20 17:30: WBC 31.9 H* D, Hgb 7.9 L*, Hct 26.6 L, Plt Count 204 D 04/11/20 17:30: Sodium 138, Potassium 4.5, BUN 27 H, Creatinine 1.13, Glucose 172 H, Magnesium 2.0, Total Bilirubin 0.7, AST 50 H, ALT 64, Alkaline Phosphatase 200 H <Raj Loaiza - Last Filed: 04/12/20 09:29> Assessment and Plan - Plan Assessment Cellulitis of the right lower extremity Acute on chronic diastolic congestive heart failure Diabetes mellitus type 2-insulin dependent Myasthenia gravis Hypertension Hypothyroidism Plan Cellulitis of the right lower extremity: Blood cultures obtained in the emergency department. White blood cell count significantly elevated at 30.9 with 3% bands. Significant warmth and edema noted. Patient allergic to penicillins and cephalosporins, started on vancomycin. DVT prophylaxis Lovenox 40 mg subcutaneous once daily. Ultrasound bilateral lower extremities obtained, negative for DVT. Acute on chronic diastolic congestive heart failure: Patient does appear moderately overloaded, continue with Lasix 40 mg IV b.i.d.. 1500 cc per day fluid restriction, daily weights. Diabetes mellitus type 2-insulin dependent: A.c. HS Accu-Cheks, sliding scale insulin therapy. Will obtain A1c with morning labs. Myasthenia gravis: Obtain and continue home medications. Hypertension: Obtain and continue home medications. Hypothyroidism: Obtain and continue home medications, thyroid panel with morning labs. Discharge Plan: Home Plan to discharge in: Greater than 2 days - Advance Directives Does patient have a Living Will: No Does patient have a Durable POA for Healthcare: Yes - Code Status/Comfort Care Code Status Assessed: Yes (Full code) Critical Care: No Time Spent Managing Pts Care (In Minutes): 55 <Dean Ford - Last Filed: 04/11/20 22:33> - Plan Case discussed in detail with nurse practitioner. Agree with evaluation, assessment and plan of care. Will consult infectious disease for recommendations. Continue vancomycin. Add doxycycline. Anticipate improvement. Will continue home medication. Will adjust medication accordingly. Please see progress note for details. <Raj Loaiza - Last Filed: 04/12/20 09:29>
[2020-04-11] MEDS ORDERED: VANCOMYCIN 500 MG/VIAL ONE (23:06)
[2020-04-11] MEDS ORDERED: NA CHLORIDE 0.9% 100 ML ONE (23:26)
[2020-04-12] MEDS ORDERED: LEVOTHYROXINE SOD 0.088 MG TAB PO SCH (06:00)
[2020-04-12] MEDS: PYRIDOSTIGMINE 60 MG TABLET PO SCH ×3 (06:01→23:29)
[2020-04-12 06:02] LABS: Absolute Lymphocytes (CBC) 2.2 K/uL (0.7-4.9); Basophils % 0.2 % (0-1.3); Hematocrit 27.7 % (36.0-45.0); MPV 9.6 fL (7.6-11.3); RBC Red Blood Cell Count 3.75 M/uL (3.86-4.86)
[2020-04-12 06:24] LABS: Urine Appearance CLOUDY; Urine Bilirubin NEGATIVE (NEG); Urine Blood NEGATIVE (NEG); Urine Color YELLOW; Urine Glucose NEGATIVE (NEG); Urine Protein 1+ (NEG); Urine Specific Gravity >=1.030 (1.005-1.030)
[2020-04-12 06:26] LABS: Magnesium 2.2 mg/dL (1.8-2.4); Potassium 3.9 mmol/L (3.5-5.1); Thyroid Stimulating Hormone 0.187 uIU/mL (0.360-3.740)
[2020-04-12 07:03] LABS: Urine Bacteria >50 /HPF (<20); Urine Urothelial Cells <5 /HPF (NONE SEEN)
[2020-04-12 07:06] LABS: Urine Culture Reflex Order NOT NEEDED; Urine Microscopic Reflex ORDER UMIC
[2020-04-12] MEDS ORDERED: FUROSEMIDE 40 MG/4 ML VIAL IV SCH (09:00)
[2020-04-12] MEDS ORDERED: DRISDOL (VITAMIN D=ERGOCALCIFEROL) 50000 UNIT CAP PO SCH (09:00)
[2020-04-12] MEDS ORDERED: POTASSIUM CL SA 10 MEQ TAB PO ONE (09:00)
[2020-04-12] MEDS ORDERED: D50W 25 GM/50 ML SYRINGE IV PRN (09:26)
[2020-04-12] MEDS ORDERED: GLUCAGON 1 MG/VIAL IM PRN (09:26)
--- NOTE | 2020-04-12 09:34 | P.PN ---
Subjective Date of Service: 04/12/20 Primary Care Provider: Dr. Pearson Chief Complaint: Cellulitis Subjective: Doing well Physical Examination - Vital Signs Temperature: 97.7 F Blood Pressure: 152/48 Pulse: 94 Respirations: 20 Pulse Ox (%): 94 - Physical Exam General: Alert, In no apparent distress, Cooperative HEENT: Atraumatic Neck: Supple Respiratory: Clear to auscultation bilaterally, Normal air movement Cardiovascular: Normal pulses, Regular rate/rhythm Gastrointestinal: Normal bowel sounds, No masses, No rebound, No guarding Musculoskeletal: Other (Erythema to the right lower extremity noted. Increase in edema noted as well. Erythema just below the knee down to the ankle region.) Integumentary: No warmth, No cyanosis, Tenderness/swelling Neurological: Normal speech, Normal strength at 5/5 x4 extr, Normal tone, Normal affect - Studies Laboratory Data (last 24 hrs) 04/11/20 17:30: PT 16.6 H, INR 1.42 04/11/20 17:30: WBC 31.9 H* D, Hgb 7.9 L*, Hct 26.6 L, Plt Count 204 D 04/11/20 17:30: Sodium 138, Potassium 4.5, BUN 27 H, Creatinine 1.13, Glucose 172 H, Magnesium 2.0, Total Bilirubin 0.7, AST 50 H, ALT 64, Alkaline Phosphatase 200 H Medications List Reviewed: Yes Assessment & Plan Discharge Plan: Home Plan to discharge in: 72 Hours Physician Review Additional Text: Impression: Cellulitis of the right lower extremity Chronic diastolic congestive heart failure Diabetes mellitus type 2-insulin dependent Myasthenia gravis Hypertension Hypothyroidism Chronic renal disease stage III Anemia of chronic disease with iron deficiency Obesity, BMI 37 Plan Cellulitis of the right lower extremity: Continue IV antibiotic therapy- vancomycin. Will add doxycycline. Blood cultures obtained. Continue monitor closely. Infectious disease consulted for further recommendation. Elevate leg when sitting or lying. Will monitor closely. DVT prophylaxis in place. No DVT noted. Order physical therapy to assess ambulation. Anticipate improvement over the next 3 days. Patient may require home health and physical therapy at discharge. Chronic diastolic congestive heart failure: Patient does not appear overloaded. Will continue oral medication from home. Diabetes mellitus type 2-insulin dependent: Will check A1c. Continue Accu- Cheks. Restart basal insulin. Will adjust accordingly. Myasthenia gravis on chronic steroids: Restart home medication. Hypertension: Restart home medication. Will adjust accordingly.. Hypothyroidism: Restart home medication. Will consider adjustment in medication. Chronic renal disease stage III: Will monitor this closely. Anemia of chronic disease with iron deficiency: Will start iron supplementation. Patient may require transfusion if hemoglobin below 7.0. Depression with anxiety: Continue medication Obesity, BMI at 37: Will address lifestyle modification education. Time Spent Managing Pts Care (In Minutes): 55
[2020-04-12] MEDS: AZATHIOPRINE 50 MG TABLET PO SCH ×2 (10:08→21:42)
[2020-04-12] MEDS: INSULIN -REGULAR HUMAN 50 UNIT/0.5 ML ML SQ SCH ×4 (10:08→21:44)
[2020-04-12] MEDS: ENOXAPARIN 40 MG/0.4 ML SQ SCH (10:09)
[2020-04-12] MEDS: AMLODIPINE 10 MG TAB PO SCH (10:11)
[2020-04-12] MEDS: predniSONE 20 MG TAB PO SCH (10:11)
[2020-04-12] MEDS: clonazePAM 0.5 MG TAB PO SCH ×2 (10:11→21:40)
[2020-04-12] MEDS: ROSUVASTATIN 10 MG TAB PO SCH (10:11)
[2020-04-12] MEDS: FUROSEMIDE 20 MG TABLET PO SCH (10:11)
[2020-04-12] MEDS ORDERED: Meropenem 500 MG VIAL IV SCH (17:00)
[2020-04-12] MEDS: Meropenem 500 MG in NA CHLORIDE 0.9% 100 ML IV SCH (17:27)
--- NOTE | 2020-04-12 19:49 | CON ---
History Of Present Illness: This is a 75-year-old female, not a good historian. Most of the history was obtained through medical records and staff and hospitalist. A 75-year-old female coming in with cellulitis of right lower extremity. The patient has significant history of myasthenia gravis, diab etes mellitus type 2, hypertension, hyperlipidemia, hypothyroidism, morbid obesity with stasis dermat itis, comes in with right leg swelling, bilateral lower extremity swelling and redness involving the right lower extremity. The patient has a white blood cell count of more than 30,000. Procalcitonin is pending. Blood cultures are pending. The patient is currently being treated with vancomycin and doxycycline. Opens eyes spontaneously. No other acute complaints at this time. Past Medical History: Chronic kidney disease stage 2, benign neoplasm of cerebral meninges, hyperten willie, COPD, morbid obesity, chronic diastolic congestive heart failure, myasthenia gravis, spinal candi nosis, dementia, brain surgery x2, diabetes mellitus, cholecystectomy, neck surgery, carpal tunnel bahena rgery. Social History: Nonsmoker, nondrinker. Family History: Noncontributory. Medication: Vancomycin, doxycycline. See MAR for other medications. Allergies: INCLUDE ASPIRIN, CIPRO, CORTISONE, PENICILLIN, PHENOBARBITAL. Review of Systems: Unable to obtain at this time. Physical Examination: General: This is a 75-year-old female, lying in bed, not in any acute cardiopulmonary distress. Vital Signs: Temperature 97.7, pulse 94, respirations 20, blood pressure 152/48. HEENT: Unremarkable. Neck: Supple. Lungs: Basal crackles. Heart: S1, S2. Regular. Abdomen: Soft, nontender. Bowel sounds present Extremities: 3+ nonpitting edema, right leg with in creased warmth and redness, erythematous changes. Laboratory Data: Shows WBC 29085, hemoglobin 8.3, platelets are 198, with neutrophil elevation and l ow leukocyte. Chemistry shows sodium 140, potassium 3.9, chloride 106, bicarb 27, BUN 27, creatinine 1.16, glucose is 147, hemoglobin A1c is 7.9. The patient's urinalysis shows wbc's more than 50. 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 Blood cultures are pending. X-rays; chest x-ray shows th e patient has no acute cardiopulmonary process. Doppler of the leg shows no DVT. Assessment And Plan: This is a 75-year-old female with multiple medical problems, diabetes mellitus, and lymphedema, stasis dermatitis, coming in with right lower extremity cellulitis [place] [address]. Blood cultures are pending. Urinalysis also positive for wbc count with cultures pending. Currently, the patient is getting vancomycin and doxycycline. We will recommend to discontinue doxycycline and start the patient on meropenem 500 mg IV piggyback q.8 hours . Monitor for signs of a reaction as the patient has allergies to penicillin. The patient has tende ncy to have elevated WBC count all the way up to 2019. We will continue current treatment. Recommen d treatment for 3 weeks minimum, keep legs elevated when possible. We will follow the patient closel y. Thank you Dr. Loaiza for consult. HAMILTON/MASSIEL Voice ID: [id number] Report ID: [id number]
[2020-04-12] MEDS ORDERED: INSULIN GLARGINE 100 UNITS/ML SQ SCH ×2 (21:00)
[2020-04-12] MEDS ORDERED: DOXYCYCLINE 100 MG in NA CHLORIDE 0.9% 100 ML IVPB SCH (21:00)
[2020-04-12] MEDS: FERROUS SULFATE 325 MG TAB PO SCH (21:40)
[2020-04-12] MEDS: MELATONIN 3 MG TABLET PO PRN (21:41)
[2020-04-12] MEDS: SERTRALINE HCL 50 MG TAB PO SCH (21:41)
[2020-04-12] MEDS ORDERED: DOXYCYCLINE 100 MG CAP PO SCH (23:00)
[2020-04-13] MEDS: Meropenem 500 MG in NA CHLORIDE 0.9% 100 ML IV SCH ×3 (01:06→16:01)
[2020-04-13] MEDS: LEVOTHYROXINE SOD 0.075 MG TAB PO SCH ×2 (06:00→06:10)
[2020-04-13] MEDS: PYRIDOSTIGMINE 60 MG TABLET PO SCH ×4 (06:10→23:31)
[2020-04-13] MEDS: INSULIN -REGULAR HUMAN 50 UNIT/0.5 ML ML SQ SCH ×4 (07:30→21:35)
[2020-04-13] MEDS: FERROUS SULFATE 325 MG TAB PO SCH ×3 (09:00→21:30)
[2020-04-13] MEDS: AZATHIOPRINE 50 MG TABLET PO SCH (09:00)
[2020-04-13] MEDS: ENOXAPARIN 40 MG/0.4 ML SQ SCH ×2 (09:00→11:42)
[2020-04-13] MEDS: AMLODIPINE 10 MG TAB PO SCH ×2 (09:00→11:40)
[2020-04-13] MEDS: predniSONE 20 MG TAB PO SCH ×2 (09:00→11:41)
[2020-04-13] MEDS: clonazePAM 0.5 MG TAB PO SCH ×3 (09:00→21:31)
[2020-04-13] MEDS: INSULIN GLARGINE 100 UNITS/ML SQ SCH ×2 (09:00→21:34)
[2020-04-13] MEDS: FUROSEMIDE 20 MG TABLET PO SCH ×2 (09:00→11:41)
[2020-04-13] MEDS: ROSUVASTATIN 10 MG TAB PO SCH ×2 (09:00→11:39)
[2020-04-13] MEDS: VANCOMYCIN 1.5 GM in NA CHLORIDE 0.9% 500 ML IVPB SCH ×2 (10:00→16:43)
--- NOTE | 2020-04-13 12:52 | P.PN ---
Subjective Date of Service: 04/13/20 Primary Care Provider: Dr. Pearson Chief Complaint: Cellulitis Subjective: Other (Patient did not sleep well last night. Patient was upset this morning. at bedside. Slight confusion noted.) Physical Examination - Vital Signs Temperature: 97.3 F Blood Pressure: 165/60 Pulse: 63 Respirations: 18 Pulse Ox (%): 99 - Physical Exam General: Alert, Other (Mild confusion but cooperative.) HEENT: Atraumatic Neck: Supple Respiratory: Clear to auscultation bilaterally, Normal air movement Cardiovascular: Normal pulses, Regular rate/rhythm Gastrointestinal: Normal bowel sounds, No tenderness, No masses, No rebound, No guarding Integumentary: Other (Erythema to the lower right extremity between the knee and ankle joint) Neurological: Normal speech, Normal strength at 5/5 x4 extr, Normal tone, Normal affect - Studies Microbiology Data (last 24 hrs): 04/11/20 18:15 Clean Catch Urine [place] Count - Final No growth. 04/11/20 18:15 Clean Catch Urine - Final No growth. Medications List Reviewed: Yes Assessment & Plan Discharge Plan: Home Plan to discharge in: 72 Hours Physician Review Additional Text: Impression: Cellulitis of the right lower extremity Chronic diastolic congestive heart failure Diabetes mellitus type 2-insulin dependent Myasthenia gravis Hypertension Hypothyroidism Chronic renal disease stage III Anemia of chronic disease with iron deficiency Obesity, BMI 37 Plan Cellulitis of the right lower extremity: Spoke with infectious disease yesterday. Continue IV vancomycin. Doxycycline was discontinued. Merrem was added. Continue to wait on blood cultures. Continue to monitor closely. Patient pulled on her IV site. This will need to be replaced. Case discussed in detail with patient and . Continue current plan of care. For confusion, will consult neurology to further evaluate. Patient with history of myasthenia gravis. Patient recently placed on Imuran. This can cause some confusion. Will hold Imuran at this time. This was started about a week ago. Will try get in contact with her specialists up in [place]. Will discuss further with Neurology. Continue with plan of care. Patient also with elevated WBC. Will send for peripheral smear. Patient appears to have chronic elevated WBC. Physical therapy to evaluate. Anticipate improvement over the next 48-72 hr. Diabetes mellitus type 2-insulin dependent: Will check A1c. Continue Accu- Cheks. Restart basal insulin. Will adjust accordingly. Myasthenia gravis on chronic steroids: Continue current medication. Hold Imuran at this time. Will discuss with urology. Hypertension: Continue home medication. Will adjust accordingly.. Hypothyroidism: Continue home medication. Will consider adjustment in medication. Chronic renal disease stage III: Will monitor this closely. Anemia of chronic disease with iron deficiency: Continue iron supplementation. Patient may require transfusion if hemoglobin below 7.0. Depression with anxiety: Continue medication Obesity, BMI at 37: Will address lifestyle modification education. Time Spent Managing Pts Care (In Minutes): 55
[2020-04-13 13:56] LABS: Absolute Lymphocytes (CBC) 2.5 K/uL (0.7-4.9); Basophils % 0.4 % (0-1.3); Hematocrit 28.5 % (36.0-45.0); Lymphocytes % 12.2 % (15.3-44.8); MPV 9.7 fL (7.6-11.3); RBC Red Blood Cell Count 3.84 M/uL (3.86-4.86)
[2020-04-13 14:10] LABS: Magnesium 1.9 mg/dL (1.8-2.4); Potassium 3.5 mmol/L (3.5-5.1)
[2020-04-13] MEDS ORDERED: POTASSIUM CL SA 10 MEQ TAB PO ONE (15:00)
--- NOTE | 2020-04-13 18:23 | CON ---
Reason For Consultation: Consultation called because of myasthenia gravis. History Of Present Illness: Ms. Lange is a 75-year-old right-handed patient with histor y of myasthenia gravis, diabetes mellitus, hypertension, dyslipidemia, hypothyroidism, and comes to [facility] with admission on 04/11/2020 with right leg cellulitis. She is on steroids and vila s actually a very elevated white blood cell count of 32 with 3% bands in the emergency room. She did have an anemia with hemoglobin of 7.6. She was placed on 2 antibiotics and has been seen by the Inf ectious Disease service. Question was asked to Neurology as to whether her myasthenia gravis is play ing any role. At the time of my evaluation, the patient is actually in bed and arousable and respond ing appropriately. She did not have double vision or ptosis. She did not have oxygen. There is no shortness of breath. She did not have any difficulty moving the arms, although she did move her righ t side little bit less than the left, but both actually were symmetric and equal when fully assessed. Past Medical History: Stage 2 kidney disease, hypertension, COPD, diastolic congestive heart failure , myasthenia gravis, spinal stenosis, mild to moderate dementia, CONDUIT HELPER meninges neoplasm. Past Surgical History: and craniotomy surgery, cholecystectomy, carpal tunnel release, and cervical spine surgery. Family History: Mother has heart disease, she is 93. Father had heart disease and he is . Mother is alive. Social History: No alcohol, tobacco, or IV drug use. She lives at home with family. Allergies: ASPIRIN, CIPROFLOXACIN, CORTISONE, PENICILLIN, PHENOBARBITAL, AND IVIG. Home Medications: Lasix, amlodipine, Levemir insulin, FlexPen insulin, Synthroid 88 mcg daily, ke onin, potassium 10 mEq twice daily, Mestinon 60 mg 3 times daily, Crestor 20 mg daily, prednisone 20 mg daily, Klonopin 0.5 mg twice daily, ramipril 2.5 mg daily, vitamin D2 1.25 mg every 7th day, sertr kojo 25 mg at bedtime, azathioprine twice daily. Review of Systems: She has right and left lower extremity swelling, occasional episodes of shortness of breath. Otherwi se, no fevers or chills, myalgias, or arthralgias. No psychiatric issues. No other positives on a 1 0 point systems review. Physical Examination: Vital Signs: Blood pressure 165/60, pulse 82, respiratory rate 18, temperature 97.5, oxygen saturati on 99% on room air. Weight 187 pounds, height 4 feet 11 inches, BMI 37.8. General: Ms. Lange is lying in bed. She is in no acute distress. HEENT: She is normocephalic, atraumatic. Sclerae anicteric. Eye shows some tearing. Oropharynx is moist. She has some bruising noted in the upper extremities, mild, and redness and swelling in the lower extremities with around 1 to 2+ pitting edema bilaterally. Redness is more noted on the right calf and ankle area and also tibialis anterior area. Neurological: She is alert and oriented to situation, person, and place. Follows commands appropria tely. After 1 minute of gaze, no ptosis or double vision. With her left deltoid, she was able to wi thstand 10 forceful pushes on the right deltoid without weakness on the left side. She was less coop erative, but she did move the right hand appropriately. No focal findings on rest of her examination except for stocking-glove sensory loss or coordination in the upper and lower extremities. Laboratory Studies: White blood cell count 20.3, down from 31.9; hemoglobin 8.5, improved from 7.9; neutrophils 82.9, down from 95.8. INR 1.42. Creatinine 0.79. Sodium, potassium, chloride are all n ormal. Glucose ranged from 73 up to 411. Calcium 8.6. Magnesium 1.9. Her urinalysis on admission showed 2+ esterase, 5-10 red blood cells, greater than 50 white blood cells, greater than 50 bacteria . Assessment: Ms. Lange is a 75-year-old patient with multiple medical problems as indicated above in addition to myasthenia gravis, which is stable. She has no evidence of a flare-up of myasthenia g ravis. It should be noted that she did have a single breath count of around 18 and then she took a b reath. She is being treated for cellulitis with multiple antibiotics. She is on steroids for risk o f infection. She is on meropenem 500 mg every 8 hours. Plan: Mestinon 60 mg 3 times daily, continue the prednisone at 20 mg daily. Continue with managemen t of hyperthyroidism and more aggressive management of diabetes mellitus. The patient was instructed on the importance of assessing respiratory function even when medical staff is not around by doing a single breath count at this point and she does not have any evidence of active myasthenia gravis wit h no diplopia on up gaze, no double vision, and no fatigability noted on the left deltoid muscle. DANIKA/MASSIEL Voice ID: [id number] Report ID: [id number]
[2020-04-13] MEDS: MELATONIN 3 MG TABLET PO PRN (21:30)
[2020-04-13] MEDS: SERTRALINE HCL 50 MG TAB PO SCH (21:30)
[2020-04-14] MEDS: Meropenem 500 MG in NA CHLORIDE 0.9% 100 ML IV SCH ×3 (01:00→16:28)
[2020-04-14] MEDS: LEVOTHYROXINE SOD 0.075 MG TAB PO SCH (05:57)
[2020-04-14] MEDS: PYRIDOSTIGMINE 60 MG TABLET PO SCH ×3 (06:45→23:00)
[2020-04-14 06:46] LABS: Absolute Lymphocytes (CBC) 3.3 K/uL (0.7-4.9); Basophils % 0.3 % (0-1.3); Hematocrit 27.6 % (36.0-45.0); MPV 9.9 fL (7.6-11.3); RBC Red Blood Cell Count 3.77 M/uL (3.86-4.86)
[2020-04-14 07:05] LABS: BUN Blood Urea Nitrogen 19 mg/dL (7-18); Bicarbonate 30 mmol/L (21-32); Magnesium 2.1 mg/dL (1.8-2.4); Potassium 3.5 mmol/L (3.5-5.1); Sodium Level 145 mmol/L (136-145)
[2020-04-14 07:12] LABS: Glucose Level 37 mg/dL (74-106)
[2020-04-14] MEDS: INSULIN -REGULAR HUMAN 50 UNIT/0.5 ML ML SQ SCH ×5 (07:30→21:31)
--- NOTE | 2020-04-14 08:37 | P.PN ---
Subjective Date of Service: 04/14/20 Primary Care Provider: Dr. Pearson Chief Complaint: Cellulitis Subjective: Other (Patient doing well this time. No confusion noted.) Physical Examination - Vital Signs Temperature: 97 F Blood Pressure: 120/51 Pulse: 69 Respirations: 20 Pulse Ox (%): 99 - Physical Exam General: Alert, In no apparent distress, Oriented x3, Cooperative HEENT: Atraumatic Neck: Supple Respiratory: Clear to auscultation bilaterally, Normal air movement Cardiovascular: Normal pulses, Regular rate/rhythm Gastrointestinal: Normal bowel sounds, Soft and benign, Non-distended Integumentary: Other (Erythema to the right lower extremity improved. Swelling also improved.) Neurological: Normal speech, Normal strength at 5/5 x4 extr, Normal tone, Normal affect - Studies Microbiology Data (last 24 hrs): 04/11/20 18:15 Clean Catch Urine [place] Count - Final No growth. 04/11/20 18:15 Clean Catch Urine - Final No growth. Medications List Reviewed: Yes Assessment & Plan Discharge Plan: Home Plan to discharge in: 24 Hours Physician Review Additional Text: Impression: Cellulitis of the right lower extremity Chronic diastolic congestive heart failure Diabetes mellitus type 2-insulin dependent Myasthenia gravis Hypertension Hypothyroidism Chronic renal disease stage III Anemia of chronic disease with iron deficiency Obesity, BMI 37 Plan Cellulitis of the right lower extremity: Patient remains on IV meropenem and vancomycin. Pharmacy to continue to adjust. Erythema, and edema significantly improved. Anticipate improvement over the next 24 hr. Will discuss case with infectious disease about the possibility of changing to oral medication prior to discharge. Will discuss plan of care. Spoke with Neurology yesterday concerning her confusion. Confusion was likely related to her depression with anxiety. No evidence of toxic encephalopathy. Myasthenia gravis appear stable on chronic steroids. Anticipate possible discharge tomorrow Diabetes mellitus type 2-insulin dependent: A1c stable. Continue Accu-Cheks. Blood sugar slightly low today. Will decrease basal insulin. Encourage oral intake. Will provide close PROMOTIONS OFFICER.. Myasthenia gravis on chronic steroids: Continue current medication. Imuran was held. Will need to consider changing this to once daily as opposed to twice daily. But this has increased side affects. This was recently started about a week ago. Hypertension: Continue home medication. Will adjust accordingly.. Hypothyroidism: Continue home medication. Chronic renal disease stage III: Will monitor this closely. Overall this has improved. Anemia of chronic disease with iron deficiency: Continue iron supplementation. Patient may require transfusion if hemoglobin below 7.0. Depression with anxiety: Continue medication Obesity, BMI at 37: Will address lifestyle modification education. Time Spent Managing Pts Care (In Minutes): 55
[2020-04-14] MEDS ORDERED: POTASSIUM 25 MEQ EFFERV TAB PO ONE (09:00)
[2020-04-14] MEDS: INSULIN GLARGINE 100 UNITS/ML SQ SCH ×2 (09:00→21:30)
[2020-04-14] MEDS ORDERED: AZATHIOPRINE 50 MG TABLET PO SCH (09:00)
[2020-04-14] MEDS: FERROUS SULFATE 325 MG TAB PO SCH ×2 (09:18→21:30)
[2020-04-14] MEDS: clonazePAM 0.5 MG TAB PO SCH ×2 (09:18→21:30)
[2020-04-14] MEDS: ROSUVASTATIN 10 MG TAB PO SCH (09:19)
[2020-04-14] MEDS: FUROSEMIDE 20 MG TABLET PO SCH (09:20)
[2020-04-14] MEDS: ENOXAPARIN 40 MG/0.4 ML SQ SCH (09:20)
[2020-04-14] MEDS: AMLODIPINE 10 MG TAB PO SCH (09:20)
[2020-04-14] MEDS: predniSONE 20 MG TAB PO SCH (09:20)
[2020-04-14] MEDS: GLUCERNA SHAKE 237 ML CAN PO SCH ×2 (09:22→21:30)
[2020-04-14 10:57] LABS: Anisocytosis 1+; Blood Morphology Comment NOTED (NOT SEEN); Platelet Estimate ADEQ; White Blood Cell Scan OK (OK)
[2020-04-14] MEDS ORDERED: GLUCAGON 1 MG/VIAL IM PRN (11:37)
[2020-04-14] MEDS ORDERED: D50W 25 GM/50 ML SYRINGE IV PRN (11:37)
[2020-04-14] MEDS: SERTRALINE HCL 50 MG TAB PO SCH (21:31)
[2020-04-15] MEDS: Meropenem 500 MG in NA CHLORIDE 0.9% 100 ML IV SCH ×3 (00:31→16:21)
[2020-04-15] MEDS: MELATONIN 3 MG TABLET PO PRN (02:00)
[2020-04-15 04:10] LABS: Absolute Lymphocytes (CBC) 3.2 K/uL (0.7-4.9); Basophils % 0.4 % (0-1.3); Hematocrit 28.9 % (36.0-45.0); Lymphocytes % 17.6 % (15.3-44.8); MPV 9.8 fL (7.6-11.3); RBC Red Blood Cell Count 3.97 M/uL (3.86-4.86)
[2020-04-15 04:19] LABS: Magnesium 2.1 mg/dL (1.8-2.4)
[2020-04-15] MEDS ORDERED: VANCOMYCIN 1.5 GM in NA CHLORIDE 0.9% 500 ML IVPB SCH (05:00)
[2020-04-15] MEDS: LEVOTHYROXINE SOD 0.075 MG TAB PO SCH (05:56)
[2020-04-15] MEDS: PYRIDOSTIGMINE 60 MG TABLET PO SCH ×3 (06:48→22:02)
[2020-04-15] MEDS: INSULIN -REGULAR HUMAN 50 UNIT/0.5 ML ML SQ SCH ×4 (07:30→20:51)
--- NOTE | 2020-04-15 07:53 | EKG ---
Test Date: 2020-04-11 Test Time: 19:11:44 Precision Jig Grinder: DEVONTE MEASUREMENT RESULTS: Intervals: Rate: 95 SD: 144 QRSD: 78 QT: 334 QTc: 419 [place]: P: 77 SD: 144 QRS: 24 T: 186 INTERPRETIVE STATEMENTS: Sinus rhythm with premature supraventricular complexes Low voltage QRS Inferior infarct, age undetermined Cannot rule out Anterior infarct, age undetermined Abnormal ECG Compared to ECG 04/02/2020 04:53:14 Atrial premature complex(es) now present Myocardial infarct finding still present Electronically Signed On 04-15-20 07:42:36 PLANT HR MANAGER by Jeet Valles
[2020-04-15] MEDS: ENOXAPARIN 40 MG/0.4 ML SQ SCH (08:34)
[2020-04-15] MEDS: INSULIN GLARGINE 100 UNITS/ML SQ SCH ×2 (08:36→20:40)
[2020-04-15] MEDS: predniSONE 20 MG TAB PO SCH (08:37)
[2020-04-15] MEDS: ROSUVASTATIN 10 MG TAB PO SCH (08:37)
[2020-04-15] MEDS: FERROUS SULFATE 325 MG TAB PO SCH ×2 (08:37→20:39)
[2020-04-15] MEDS: FUROSEMIDE 20 MG TABLET PO SCH (08:39)
[2020-04-15] MEDS: clonazePAM 0.5 MG TAB PO SCH ×2 (08:39→20:39)
[2020-04-15] MEDS: AMLODIPINE 10 MG TAB PO SCH (08:40)
[2020-04-15] MEDS: GLUCERNA SHAKE 237 ML CAN PO SCH ×2 (09:34→20:41)
--- NOTE | 2020-04-15 10:49 | P.PN ---
Subjective Date of Service: 04/15/20 Primary Care Provider: Dr. Pearson Chief Complaint: Cellulitis Subjective: Improving Physical Examination - Vital Signs Temperature: 97.4 F Blood Pressure: 150/65 Pulse: 78 Respirations: 17 Pulse Ox (%): 96 - Physical Exam General: Alert, Cooperative HEENT: Atraumatic Neck: Supple Respiratory: Clear to auscultation bilaterally, Normal air movement Cardiovascular: Normal pulses, Regular rate/rhythm Gastrointestinal: Normal bowel sounds, No masses, No rebound, No guarding Integumentary: Tenderness/swelling (erythema and swelling improved.) Neurological: Normal speech, Normal strength at 5/5 x4 extr, Normal tone, Normal affect - Studies Medications List Reviewed: Yes Assessment & Plan Discharge Plan: Home Plan to discharge in: 24 Hours Physician Review Additional Text: Impression: Cellulitis of the right lower extremity with significant leukocytosis Chronic diastolic congestive heart failure Diabetes mellitus type 2-insulin dependent Myasthenia gravis Hypertension Hypothyroidism Chronic renal disease stage III Anemia of chronic disease with iron deficiency Obesity, BMI 37 Plan Cellulitis of the right lower extremity with significant leukocytosis: Patient remains on IV meropenem and vancomycin. Pharmacy to continue to adjust. White count still elevated but improved. Case discussed with infectious disease. If white count more improved by tomorrow with improvement of erythema then patient can be discharged on doxycycline and Omnicef. Patient will need at least 7 more days of therapy. Continue to elevate when lying or sitting. Will discuss with and patient. I will turn the service over to the hospitalist team tomorrow. I will go over plan of care with him. Diabetes mellitus type 2-insulin dependent: A1c stable. Continue Accu-Cheks. Blood sugar slightly low today. Continue with basal insulin. Will continue to monitor and adjust. Myasthenia gravis on chronic steroids: Continue current medication. Patient on chronic prednisone. Imuran has been held, as this may be the cause of her leukocytosis. This had been recently started. Side effect profile reviewed. Considered discontinuing at discharge and patient following up with specialist to further address. Hypertension: Continue home medication. Will adjust accordingly.. Hypothyroidism: Continue home medication. Chronic renal disease stage III: Will monitor this closely. Overall this has improved. Anemia of chronic disease with iron deficiency: Continue iron supplementation. Patient may require transfusion if hemoglobin below 7.0. Depression with anxiety: Continue medication Obesity, BMI at 37: Will address lifestyle modification education. Time Spent Managing Pts Care (In Minutes): 55
[2020-04-15] MEDS: SERTRALINE HCL 50 MG TAB PO SCH (20:40)
[2020-04-16] MEDS: LEVOTHYROXINE SOD 0.075 MG TAB PO SCH (06:04)
[2020-04-16] MEDS: PYRIDOSTIGMINE 60 MG TABLET PO SCH ×3 (06:04→21:59)
[2020-04-16] MEDS: INSULIN -REGULAR HUMAN 50 UNIT/0.5 ML ML SQ SCH ×4 (07:30→21:00)
[2020-04-16] MEDS: predniSONE 20 MG TAB PO SCH (08:08)
[2020-04-16] MEDS: clonazePAM 0.5 MG TAB PO SCH ×2 (08:09→21:57)
[2020-04-16] MEDS: ROSUVASTATIN 10 MG TAB PO SCH (08:09)
[2020-04-16] MEDS: ENOXAPARIN 40 MG/0.4 ML SQ SCH (08:09)
[2020-04-16] MEDS: AMLODIPINE 10 MG TAB PO SCH (08:09)
[2020-04-16] MEDS: FERROUS SULFATE 325 MG TAB PO SCH ×2 (08:09→21:58)
[2020-04-16] MEDS: FUROSEMIDE 20 MG TABLET PO SCH (08:09)
[2020-04-16] MEDS: GLUCERNA SHAKE 237 ML CAN PO SCH ×2 (08:10→21:00)
[2020-04-16] MEDS: INSULIN GLARGINE 100 UNITS/ML SQ SCH (08:10)
[2020-04-16] MEDS: Meropenem 500 MG in NA CHLORIDE 0.9% 100 ML IV SCH ×4 (09:00→17:00)
[2020-04-16 09:47] LABS: Absolute Lymphocytes (CBC) 5.9 K/uL (0.7-4.9); Basophils % 2.7 % (0-1.3); Hematocrit 29.2 % (36.0-45.0); Lymphocytes % 25.7 % (15.3-44.8); MPV 9.8 fL (7.6-11.3); RBC Red Blood Cell Count 4.02 M/uL (3.86-4.86)
[2020-04-16 09:55] LABS: Magnesium 2.1 mg/dL (1.8-2.4); Potassium 4.1 mmol/L (3.5-5.1)
[2020-04-16 10:10] LABS: Anisocytosis 1+; Blood Morphology Comment NOTED (NOT SEEN); Platelet Estimate ADEQ; Polychromasia SLIGHT
--- NOTE | 2020-04-16 16:58 | PN ---
Subjective: The patient is lying in bed. As per staff, the patient is not taking much by mouth and her white blood cell count is also slightly going up. Objective: Vital Signs: Temperature 97, pulse 59, respirations 17, blood pressure 136/51. HEENT: Unremarkable. Neck: Supple. Lungs: Basal crackles. Heart: S1, S2. Regular. Abdomen: Soft, nontender. Bowel sounds present. Extremities: Trace edema. Laboratory Data: Shows WBC 23,000, hemoglobin 8.9, platelets are 249. Sodium 144, potassium 4.1, ch loride 107, bicarb 31, BUN 21, creatinine 0.7, glucose is 119. Micro data shows blood cultures were negative from 04/11. Assessment And Plan: Right lower extremity cellulitis and leukocytosis in a 75-year-old female. We will recommend to repeat blood cultures and continue IV antibiotics at this time. Consider long-term acute care. We will follow the patient as needed. NF/MODL Voice ID: [id number] Report ID: [id number]
[2020-04-16] MEDS ORDERED: VANCOMYCIN 1.75 GM in NA CHLORIDE 0.9% 500 ML IVPB SCH (17:00)
[2020-04-16] MEDS: SERTRALINE HCL 50 MG TAB PO SCH (21:58)
[2020-04-17] MEDS: Meropenem 500 MG in NA CHLORIDE 0.9% 100 ML IV SCH ×3 (00:23→16:49)
[2020-04-17 00:31] LABS: Absolute Lymphocytes (CBC) 3.3 K/uL (0.7-4.9); Basophils % 0.8 % (0-1.3); Lymphocytes % 17.3 % (15.3-44.8); MPV 9.8 fL (7.6-11.3); RBC Red Blood Cell Count 4.16 M/uL (3.86-4.86)
[2020-04-17 00:38] LABS: Magnesium 2.5 mg/dL (1.8-2.4); Potassium 4.3 mmol/L (3.5-5.1)
[2020-04-17] MEDS: LEVOTHYROXINE SOD 0.075 MG TAB PO SCH (06:34)
[2020-04-17] MEDS: PYRIDOSTIGMINE 60 MG TABLET PO SCH ×3 (06:35→21:50)
[2020-04-17] MEDS: INSULIN GLARGINE 100 UNITS/ML SQ SCH ×2 (10:10→21:46)
[2020-04-17] MEDS: INSULIN -REGULAR HUMAN 50 UNIT/0.5 ML ML SQ SCH ×4 (10:10→21:46)
[2020-04-17] MEDS: clonazePAM 0.5 MG TAB PO SCH ×2 (10:11→21:46)
[2020-04-17] MEDS: ENOXAPARIN 40 MG/0.4 ML SQ SCH (10:11)
[2020-04-17] MEDS: FUROSEMIDE 20 MG TABLET PO SCH (10:11)
[2020-04-17] MEDS: GLUCERNA SHAKE 237 ML CAN PO SCH ×2 (10:11→21:00)
[2020-04-17] MEDS: ROSUVASTATIN 10 MG TAB PO SCH (10:12)
[2020-04-17] MEDS: predniSONE 20 MG TAB PO SCH (10:12)
[2020-04-17] MEDS: FERROUS SULFATE 325 MG TAB PO SCH ×2 (10:12→21:45)
[2020-04-17] MEDS: AMLODIPINE 10 MG TAB PO SCH (10:12)
[2020-04-17] MEDS ORDERED: VANCOMYCIN 1.75 GM in NA CHLORIDE 0.9% 500 ML IVPB SCH ×2 (16:00→17:00)
[2020-04-17] MEDS: SERTRALINE HCL 50 MG TAB PO SCH (21:45)
[2020-04-18] MEDS: Meropenem 500 MG in NA CHLORIDE 0.9% 100 ML IV SCH ×3 (00:50→16:23)
[2020-04-18 02:36] VITALS: O2SAT 96
[2020-04-18 03:53] LABS: Absolute Lymphocytes (CBC) 3.5 K/uL (0.7-4.9); Basophils % 1.8 % (0-1.3); Hematocrit 27.9 % (36.0-45.0); Lymphocytes % 17.2 % (15.3-44.8); MPV 9.4 fL (7.6-11.3); RBC Red Blood Cell Count 3.84 M/uL (3.86-4.86)
[2020-04-18 04:01] LABS: Magnesium 2.4 mg/dL (1.8-2.4); Potassium 4.1 mmol/L (3.5-5.1)
[2020-04-18 05:04] LABS: Anisocytosis 2+; Blood Morphology Comment NOTED (NOT SEEN); Hypochromasia 1+; Platelet Estimate ADEQ; Polychromasia 2+; Target Cells 1+
[2020-04-18] MEDS: LEVOTHYROXINE SOD 0.075 MG TAB PO SCH (06:20)
[2020-04-18] MEDS: PYRIDOSTIGMINE 60 MG TABLET PO SCH ×3 (06:20→17:13)
[2020-04-18] MEDS: INSULIN -REGULAR HUMAN 50 UNIT/0.5 ML ML SQ SCH ×4 (08:51→20:34)
[2020-04-18] MEDS: ENOXAPARIN 40 MG/0.4 ML SQ SCH (08:52)
[2020-04-18] MEDS: ROSUVASTATIN 10 MG TAB PO SCH (08:53)
[2020-04-18] MEDS: AMLODIPINE 10 MG TAB PO SCH (08:53)
[2020-04-18] MEDS: INSULIN GLARGINE 100 UNITS/ML SQ SCH ×2 (08:53→20:34)
[2020-04-18] MEDS: FUROSEMIDE 20 MG TABLET PO SCH (08:53)
[2020-04-18] MEDS: predniSONE 20 MG TAB PO SCH (08:54)
[2020-04-18] MEDS: clonazePAM 0.5 MG TAB PO SCH (08:54)
[2020-04-18] MEDS: GLUCERNA SHAKE 237 ML CAN PO SCH ×2 (08:54→20:36)
[2020-04-18] MEDS: FERROUS SULFATE 325 MG TAB PO SCH ×2 (08:54→20:34)
--- NOTE | 2020-04-18 10:38 | RAD REPORT ---
EXAM DESCRIPTION: RAD - Chest Single View - 04/18/2020 2:10 am CLINICAL HISTORY: Picc line placement TECHNIQUE: Single frontal view of the chest is submitted. COMPARISON: None available for comparison FINDINGS: Heart: The cardiothoracic silhouette is enlarged. Lungs: Hazy bibasilar opacities. Mediastinum: Thoracic aortic atherosclerosis. Pleura: Blunting of the left costophrenic angle. Bones: Multilevel spondylosis. Bilateral cervical fusion hardware. No acute fracture. Upper abdomen: Unremarkable Other: Right upper extremity PICC in place. The distal visualized portion projects over the proximal superior vena cava. Left chest wall Mediport catheter. Catheter tubing projects over the left neck an d chest. IMPRESSION: 1. Distal visualized portion of the right upper extremity PICC projects over the proxi mal superior vena cava. 2. Hazy bibasilar opacities (atelectasis and/or infiltrate). Possible small left pleural effusion. Electronically signed by: Lucretia Boyce MD 04/18/2020 2:25 AM RESEARCH MANAGER Due to temporary technical issues with the PACS/Fluency reporting system, reports are being signed by the in house radiologist without review as a courtesy to ensure prompt reporting. The interpreting r adiologist is fully responsible for the content of the report.
--- NOTE | 2020-04-18 11:28 | PN ---
Subjective: The patient is lying in bed. No new complaints. Able to eat well without any problems. The patient is going to be transferred to assisted after IV line being established. Objective: Vital Signs: Temperature 97, pulse 80, respirations 26, blood pressure 144/59. No box es in examination. Laboratory Data: Shows WBC 20,000, hemoglobin 8.5, platelets are 271. Chemistry shows sodium 145, p otassium 4.1, chloride 108, bicarb 33, BUN 26, creatinine 0.9, glucose is 245. Micro data shows bloo d cultures are negative from 04/11 and chest x-ray done today shows distal visualized portion of righ t upper extremity, PICC in place of superior vena cava, hazy bibasilar opacities, possible small left pleural effusion. Assessment And Plan: Cellulitis of lower extremity improving, leukocytosis, possible aspiration pneu monia. Continue antibiotic and supportive care. The patient is currently on meropenem and vancomyci n. Total of 2 weeks antibiotic to be done. We will follow the patient as needed. NF/MODL Voice ID: [id number] Report ID: [id number]
[2020-04-18] MEDS: SERTRALINE HCL 50 MG TAB PO SCH (20:34)
[2020-04-18 20:49] VITALS: BP 150/66; TEMP 97.4
== END 2020-04-18 22:00 | disposition home health service (06) | DRG 603 ==
LOC: ER 16:14 → ERHOLD 19:37 → 2ND 21:08
PROVIDERS: ADMIT Family Medicine; ATTEND Hospitalist
PROC: 02HV33Z Insertion of Infusion Device into Superior Vena Cava, Percutaneous Approach (ICD-10-PCS; principal; 2020-04-18)
DX: L03.115 Cellulitis of right lower limb (principal); I13.0 Hypertensive heart and chronic kidney disease with heart failure and stage 1 through stage 4 chronic kidney disease, or unspecified chronic kidney disease; I50.32 Chronic diastolic (congestive) heart failure; N18.30 Chronic kidney disease, stage 3 unspecified; E11.22 Type 2 diabetes mellitus with diabetic chronic kidney disease; E03.9 Hypothyroidism, unspecified; D50.9 Iron deficiency anemia, unspecified; J44.9 Chronic obstructive pulmonary disease, unspecified; F41.8 Other specified anxiety disorders; I25.2 Old myocardial infarction; G70.00 Myasthenia gravis without (acute) exacerbation; E78.5 Hyperlipidemia, unspecified; E66.9 Obesity, unspecified; Z68.37 Body mass index [BMI] 37.0-37.9, adult; Z88.1 Allergy status to other antibiotic agents; Z88.0 Allergy status to penicillin; Z91.048 Other nonmedicinal substance allergy status; Z79.4 Long term (current) use of insulin; Z79.52 Long term (current) use of systemic steroids; Z79.890 Hormone replacement therapy; Z79.899 Other long term (current) drug therapy; Z90.49 Acquired absence of other specified parts of digestive tract; Z88.8 Allergy status to other drugs, medicaments and biological substances
CPT/HCPCS: 36415; 36569; 51702; 71045; 80048; 80076; 80202; 81003; 81015; 82274; 82607; 82728; 82947; 83036; 83540; 83605; 83735; 83880; 84145; 84439; 84443; 84466; 84484; 85025; 85610; 86850; 86870; 86900; 86901; 86922; 87040; 87086; 87088; 93005; 93970; 96365; 96375; 97110; 97161; 97530; 99285; C9113; J1650; J1815; J2185; J3370; J7040; J7500; J7512

== ENCOUNTER 2020-05-23 07:54 | Emergency (ER) | payer OTHER ==
--- OUTSIDE RECORDS SUMMARY | 2020-05-23 07:57 | XMS REPORT | Clinical Summary ---
:1945 Author Organization [facility] Address [address] [place] [address] Care Team Providers Name Role Phone Ayush [...] PaezShirley rollins MD Agrawal, Neeraj, MD after 05/23/2019 Social History Tobacco Use Types Packs/Day Years [...] 65+ YRS (1 of 1 - 01/10/2012 [id number]) MEDICARE ANNUAL WELLNESS (YEAR 2 or [...] are i n the results section. SARS-COV2/RT-PCR ([facility] Routine 02/12/2020 3:39 R esults for this & REF LABS) AM CDT procedure are i n the results section. after 05/23/2019 Results EKG-SCANNED (02/22/2020 5:13 PM CDT) Narrative Performed At This result has an attachment that is no t available. POC-Glucose meter (02/15/2020 1:09 PM CDT)Only the most recent of13 results within the time period is included. POC-Glucose Meter 101Comment: : 70 - 110 mg/dL [facility] TESTED AT [address], [address]: Burlesque Dancer/Technic radha ID = [id number] for LENNOX OSBORN Specimen Blood Performing Organization Address City/State/Zipcode Phone Number [address] [address] CENTER CBC with platelet count + automated diff (02/15/2020 4:38 AM CDT)Only the most recent of3 resultswithin the time period is included. Pathologist Sig nature WBC 19.1 (H) 3.5 - 10.5 [facility] K/L [facility] RBC 4.85 3.93 - 5.22 [facility] M/[facility] Hemoglobin 11.8 11.2 - 15.7 [facility] GM/DL [facility] Hematocrit 40.3 34.1 - 44.9 % [facility] MCV 83.1 79.4 - 94.8 fL [facility] MCH 24.3 (L) 25.6 - 32.2 pg [facility] MCHC 29.3 (L) 32.2 - 35.5 [facility] GM/DL [facility] RDW 16.7 (H) 11.7 - 14.4 % [facility] Platelets 154 150 - 450 K/CU [facility] MM [facility] MPV 12.4 (H) 9.4 - 12.3 fL [facility] nRBC 0 0 - 0 /100 WBC [facility] % Neutros 82 % [facility] % Lymphs 12 % [facility] % Monos 5 % [facility] % Eos 0 % [facility] % Baso 0 % [facility] # Neutros 15.53 (H) 1.56 - 6.13 [facility] # Lymphs 2.34 1.18 - 3.74 [facility] # Monos 0.92 (H) 0.24 - 0.36 [facility] # Eos 0.06 0.04 - 0.36 [facility] # Baso 0.03 0.01 - 0.08 [facility] Immature 1 0 - 1 % [facility] Granulocytes-Relativ [facility] e CENTER Specimen Blood Performing Organization Address City/State/Zipcode Phone Number [facility] [address] [place] [address] CENTER Urinalysis w/Microscopic + Reflex to Culture (02/14/2020 3:04 PM CDT) Color, UA Yellow [facility] Clarity, UA Hazy [facility] Specific [place], 1.028 1.001 - 1.035 [facility] pH, UA 6.0 5.0 - 8.0 [facility] Protein, UA 30 mg/dL (A) Negative [facility] Glucose, UA Negative Negative [facility] Ketones, UA Negative Negative [facility] Bilirubin, UA Negative Negative [facility] Blood, UA Negative Negative [facility] Nitrite, UA Negative Negative [facility] Leukocytes, UA Moderate (A) Negative [facility] Urobilinogen, UA 0.2 0.2 - 1.0 mg/dL [facility] RBC, UA 2 /HPF [facility] WBC, UA 28 /HPF [facility] Mucus Occasional [facility] Squam Epithel, UA 1 /HPF [facility] Hyaline Casts, UA 1 /LPF [facility] Ca Oxalate Jagruti, Occasional [facility] Specimen Source [facility] Specimen Urine Narrative Performed At Burlesque Dancer ID - [auto] [facility] Burlesque Dancer ID - radha Performing Organization Address City/State/Zipcode Phone Number [facility] [address] [place] [address] [place] Urine culture (02/14/2020 3:04 PM CDT) Pathologist Sig nature Result See comment [facility] Specimen Urine Narrative Performed At >100,000 col/mL enteric organisms of >3 [facility] types. No further workup performed. Multiple organisms suggestive of colonization or contamination. Repeat collection recommended. Performing Organization Address City/State/Zipcode Phone Number [facility] [address] [place] [address] CENTER [place] esoph swallow funct [...] Report Verified Date/Time: 02/14/2020 12:20:00 Reading Location: [address] Reading Room Procedure Note Interface, External [...] Verified Date/Time: 02/14/2020 1 2:20:00 Reading Location: [address] Reading Room Performing Organization Address City/State/Zipcode [...] Report Verified Date/Time: 02/13/2020 12:51:24 Reading Location: [facility] y Reading Room Procedure Note Interface, [...] Verified Date/Time: 02/13/2020 1 2:51:24 [facility] Performing Organization Address City/State/Zipcode Phone Number GE Eligible XR chest 1 view portable / bedside [...] Report Verified Date/Time: 02/12/2020 14:59:34 Reading Location: [facility] C013Y CT Body R eading Room [...] Verified Date/Time: 02/12/2020 1 4:59:34 Reading Location: [facility] C013Y CT Body R eading Room Performing Organization Address City/State/Zipcode Phone Number [facility] TSH/Free T4 If Indicated (02/12/2020 10:54 AM CDT) Pathologist Sig [facility] TSH 1.158 0.350 - 4.940 uIU/mL [facility] Specimen Blood Performing Organization Address City/[facility] Phone Number [facility] [address] [place] [address] Lactate dehydrogenase (LDH) (02/12/2020 10:54 AM CDT) Pathologist [facility] nature LDH 401 (H)Comment: 125 - 220 U/L [facility] Specimen slightly - [place] hemolyzed Specimen Blood Performing Organization Address City/[facility] Phone Number [facility] [address] [place] [address] Vitamin B12 (02/12/2020 10:54 AM CDT) Pathologist Sig nature Vitamin B12 486 213 - 816 pg/mL [facility] AIR Specimen Blood Performing Organization Address [facility] Phone Number [facility] [address] [place] [address] Creatine Kinase (CK) (02/12/2020 10:54 AM CDT) Pathologist Sig nature Total CK 47 29 - 200 U/L [facility] Specimen Blood Performing Organization Address [facility] Phone Number [facility] [address] [place] [address] Comprehensive metabolic panel (02/12/2020 10:54 AM CDT) Protein, Total 4.8 (L)Comment: 6.0 - 8.3 [facility] Specimen slightly gm/dL [facility] hem[facility] Albumin 2.9 (L)Comment: 3.5 - 5.0 [facility] Specimen slightly g/dL [facility] hem[facility]zed Alkaline 174 (H) 40 - 150 U/L [facility] Phosphatase [facility] Total Bilirubin 0.3Comment: 0.2 - 1.2 [facility] Specimen slightly mg/dL [facility] hem[facility]zed Sodium 140 136 - 145 [facility] meq/L [facility] Potassium 3.6Comment: 3.5 - 5.1 [facility] Specimen slightly meq/L [facility] hem[facility]zed Chloride 105 98 - 107 [facility] meq/L [facility] CO2 28 22 - 29 meq/L [facility] BUN 11 7 - 21 mg/dL [facility] Creatinine 0.48 (L)Comment: 0.57 - 1.25 [facility] Specimen slightly mg/dL [facility] hemolyzed Glucose 95 70 - 105 [facility] mg/dL [facility] Calcium 8.2 (L) 8.4 - 10.2 [facility] mg/dL [facility] AST 32Comment: 5 - 34 U/L [facility] Specimen slightly [facility] hemolyzed ALT 31Comment: 6 - 55 U/L [facility] Specimen slightly [facility] hemolyzed EGFR 127Comment: mL/min/1.73 [facility] ESTIMATED GFR IS sq m [facility] NOT ACCURATE CREATININE CLEARANCE IN PREDICTING GLOMERULAR FILTRATION RATE. ESTIMATED GFR IS NOT APPLICABLE FOR DIALYSIS PATIENTS. Specimen Blood Performing Organization Address City/State/Zipcode Phone Number [facility] [address] [place] [address] SARS-CoV2/RT-PCR (Asymptomatic ONLY) (02/12/2020 3:39 AM CDT) SARS-COV2/RT-PCR Negative Not Detected, [facility] Negative, See [facility] external report CENTER for linked test SARS-COV-2 [facility] PERFORMING LAB [facility] Specimen Other - Nasopharyngeal wall structure (b josseline structure) Narrative Performed At Negative result for this test determines that [facility] SARS-CoV-2 RNA was not present in the [...] the Act. Fact Sheet for Healthcare Providers: https://www.Fonmatch/sites/default/files/pro duct/documents/Fact_Sheet_HC_Providers_Lyra_SA RS-CoV-2.pdf Fact Sheet for Healthcare Patients: https://www.Fonmatch/sites/default/files/pro duct/documents/Fact_Sheet_Patients_Lyra_SARS-C oV-2.pdf Performing Laboratory: [place] [address] Performing Organization Address City/State/Zipcode Phone Number [address] [phone] CENTER after 05/23/2019 Insurance Payer Benefit Plan / Subscriber ID Effective Dates Phone Addre ss Type Group [employer]ET[employer] - AET[employer] MEDICARE [id number] [phone] [address] MEDICARE MGD HMO POS PPO t 2 [id number] [place] [address] Advance Directives For more information, please contact: [phone] Code Status Date Activated Date Inactivated Comments Full Code 02/11/2020 10:24 PM 02/15/2020 6:38 PM This code status was determined by: Patient Full Code 02/13/2014 10:17 AM 02/13/2014 6:26 PM This code status was determined by: Patient
--- OUTSIDE RECORDS SUMMARY | 2020-05-23 08:29 | XMS REPORT | Continuity of Care Document ---
:1945 Author Organization [facility] [email or web address] Care Team Providers Name Role Phone [facility] [email or web address] Unavailable Un available Problems Problem Status Onset Classification Date Comments Sourc e Date Reported MYASTHENIA GRAVIS Active [facility] WITH ACUTE 020 Medical C enter EXACERBATIO C-7,T-4 Active [facility] FX,ESOPHAGEAL TEAR 020 M edical Center MYASTHENIA GRAVIS Active [facility] WEAKNESS 019 Medical Ce nter MYASTHENIA GRAVIS Active [facility] 019 Medical Ce nter Dorsalgia, [facility] unspecified 019 9 Medical Center DIABETIC Active [facility] 019 Medical Ce nter DYSPHAGIA Active [facility] 019 Medical Ce nter RESOLVED VISION Active [facility] emorial LOSS IN LEFT EYE 019 Cit [facility] SLURRED SPE[place] STROKE SYMPTOMS Active [facility] exas 019 Medical Ce nter Benign neoplasm of Active Problem Data M ischer cerebral meninges 013 9 migrated Ne uro,[facility] (disorder) from [facility], OPID on 01/23/15. [facility] [place] ity BAD REACTION TO Active [facility] [place]as MEDICATION 011 Medical C enter DEHYDRATION,PAIN Active [facility] CONTROL 011 Medical Ce nter LEG CRAMPS Active [facility] 011 Medical Ce nter DEHYDRATION Active [facility] 011 Medical Ce nter SDH Active 011 Rehabilita tion DM - Diabetes Active Problem [place] mellitus 011 1 Medical Ce nter HYDROCEPHALUS Active [place] 011 Medical Ce nter BRAIN MASS Active 011 Rehabilita tion BRAIN MASS/AWAKE Active [place] [address] Medical Ce nter LIFE FLIGHT Active [place] [address] Medical Ce nter Altered mental Active Problem Misch er status (finding) 9 Fran ro,[facility], [place] Kelly, [facility] 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 Mis binta eye (disorder) 0 [facility] ,[facility], [place]ul, [place] Kelly,M [facility] Coronary Active Problem Mischer arteriosclerosis 0 Fran ro,[facility] (disorder) [facility], [place]ul, [place] Kelly[facility] Craniotomy Active Problem Mischer (procedure) 9 [facility], [place] Kelly, [facility] Diabetes mellitus Resolved Problem Mi edwardo (disorder) 0 [facility], [place], [place] Kelly,M [facility] Heart failure Resolved Problem systilic Mische r (disorder) 0 [facility], [place], [place] Kelly, [facility] Hypertensive Active Problem Mischer disorder, systemic 0 N euro,[facility] arterial Medical (disorder) Center, [place] Azul, [place] Kelly, [facility] Hypothyroidism Active Problem Misch er (disorder) 0 [facility], [place]ul, [place] Kelly,M [facility] Itching (finding) Active Problem Mi edwardo 9 [facility], [place] Kelly,M [facility] Intracranial Active Problem Mischer meningioma 9 [facility] (disorder) [facility], [place] Kelly,M [facility] Morbid obesity Resolved Problem Misch er (disorder) 0 [facility], [place] Azul, [place] Kelly,M [facility] Obstructive sleep Resolved Problem Mi edwardo apnea syndrome 0 [facility] ,[facility] (disorder) [facility], [place]ul, [place] Kelly,M [facility] Pain (finding) Active Problem Misch er 9 Neuro,[facility], [place],M [facility] itgasper Visual disturbance Active Problem ischer (disorder) 9 Neuro,[facility], [place] Kelly,M [facility] ity Illness, Memoria l unspecified 9 City Myasthenia gravis [facility] without (acute) 0 [facility] exacerbation Myasthenic crisis Resolved Problem [facility] (disorder) 0 Medical Center, [place] Azul Diabetes mellitus Resolved Problem [facility] type 2 (disorder) 0 [facility], [place] Azul Body mass index Active Problem [facility] 40+ - severely 0 Medic al obese (finding) Cent er, [place] Azul Myasthenia gravis Active Problem [facility] (disorder) 0 Medical Center, [place]ul Recurrent falls Active Problem [facility] (finding) 0 Medical Center, [place]ul Type II diabetes Active Problem [facility] mellitus 0 Medical [facility] Center, [place] (finding) Jorge Alberto Altered mental Active Problem [place] status 1 Medical Ce nter Craniotomy Active Problem [place] [address] Medical Ce nter HTN - Hypertension Active Problem [place] [address] Medical Ce nter Lethargic Inactive Problem [place] [address] Medical Ce nter Meningioma of Active Problem [place] as brain 1 Medical Ce nter Visual disturbance Active Problem [place] [address] Medical Ce nter Itching Active Problem [place] [address] Medical Ce nter Pain Active Problem [place] [address] Medical Ce nter 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 0 M edical Center failure Delirium due to [place] known 0 Medical Ce nter physiological condition Acute [facility] posthemorrhagic 0 [facility] anemia Hydrocephalus, [place] unspecified 0 Medical Center Unspecified [facility] protein-calorie 0 [facility] malnutrition Body mass index [place] (BMI) 40.0-44.9, 0 Med ical [place] adult Ventricular [facility] tachycardia 0 Medical Center Alkalosis [facility] 0 Medical Ce nter Encephalopathy, [place] unspecified 0 Medical Center Gastrointestinal [facility] hemorrhage, 0 Medical Center unspecified Unspecified [facility] displaced fracture 0 M edical Center of sixth cervical vertebra, initial encounter for closed fracture Unspecified [facility] displaced fracture 0 M edical Center of seventh cervical vertebra, initial encounter for closed fracture Unspecified [facility] displaced fracture 0 M edical Center of fourth cervical vertebra, initial encounter for closed fracture Hypothyroidism, [place] unspecified 0 Medical Center 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 [place] disease with heart 0 edical Center failure Dysphagia, [facility] unspecified 0 Medical Center Atherosclerotic [place] heart disease of 0 [facility] ical [place] coronary artery without angina pectoris Physical restraint [facility] [place] status 0 Medical Ce nter Unspecified [facility] dementia without 0 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 [place] phosphorus 0 Medical C enter metabolism Constipation, [place] as unspecified 0 Medical Center Fall on same level [facility] [place] from slipping, 0 Medic al Center tripping and stumbling without subsequent striking against object, initial encounter Other acute [facility] postprocedural 0 Medic al Center pain Acute pain due to [facility] trauma 0 Medical Ce nter Major depressive [facility] disorder, single 0 [facility] ical Center episode, unspecified Abrasion of right [facility] upper arm, initial 0 edical Center encounter Type 2 diabetes [place] mellitus with 0 Medica l Center hyperglycemia Morbid (severe) [place] obesity due to 0 Medic al Center excess calories Type 2 diabetes [place] mellitus with 0 Medica l Center hypoglycemia without coma Hyperlipidemia, [place] unspecified 0 Medical Center Chronic [facility] obstructive 0 Medical Center pulmonary disease, unspecified Hypomagnesemia [place] 0 Medical Ce nter Unqualified visual [facility] loss, right eye, 0 [facility] ical Center normal vision left eye Atherosclerosis of [facility] [place] aorta 0 Medical Ce nter Spinal stenosis, [facility] cervical region 0 [facility] roger Center Repeated falls [facility] 0 Medical Ce nter Laceration without [facility] [place] foreign body of 0 [facility] roger [place] right forearm, initial encounter Presence of [facility] [place] fluid drainage device Personal history [facility] of sudden cardiac 0 Nd dical Center arrest History of falling [facility] [place] 0 Medical Ce nter Family history of [facility] diabetes mellitus 0 Nd dical [place] Personal history [facility] of benign neoplasm 0 edical [place] of the brain Other penitentiary [facility] exas (current) drug 0 Medic al Center therapy BRAIN NEOPLASM NOS Active M H Rehabilita [facility]ion ADMINISTRTVE [place] [facility] COMMUNICAT Active [facility] HYDROCEPHALUS Medica l Center SUBDURAL Active HEMORRHAGE Rehabilit ation DEHYDRATION Active [place] [facility] MYASTHENIA GRAVIS Active [facility] WITHOUT (ACUTE) Medi roger Center EXACER SLURRED SPEECH [place] Medical [place]ter ILLNESS, Active Memoria l UNSPECIFIED [facility] OCULAR PAIN, RIGHT Active [facility] EYE [facility] UNQUALIFIED VISUAL Active [facility] LOSS, LEFT EYE, [facility] ALEXIA UNSP DISP FX OF Active Madelyn cottrell [facility] CERVICAL [facility] ical Center VERTEBR Medications Medication Details Route Status Patient Ordering Order Source Instructions Provider Date lansoprazole 3 30 mg = 10 mL, Active [place] mg/mL oral PO, BID-Before 2019 Medica l suspension Meals, # 600 Center mL, 0 Refill(s) pregabalin 25 mg 25 mg = 1 cap, Active [place] oral capsule PO, Q8H-01, 0 2020 Medic al Refill(s) [place] Sulfamethoxazole 1 tab, PO, No Longer [place] 800 MG / [id number], X 1 Active 2019 Medical Trimethoprim 160 [...] mg 5 mg = 1 tab, Active [facility] oral tablet GT, Daily, 0 2020 Medical Refill(s) [place] Sulfamethoxazole 1 tab, PO, Inactive [facility] 800 MG / [id number], 0 2020 Medical Trimethoprim 160 Refill(s) Cente r MG Oral Tablet [Bactrim] Insulin Glargine 15 unit, Inactive [place] 100 UNT/ML SUB-Q, BID, 0 2020 Medical Injectable Refill(s) [place] Solution thiamine 100 mg 200 mg = 2 [place] oral tablet tab, PO, 2020 Medical Daily, 0 Center Refill(s) rosuvastatin 10 mg 10 mg = 1 tab, Active [place] oral tablet PO, Bedtime, 0 2020 Medic al Refill(s) [place] predniSONE 20 mg 20 mg = 1 tab, Inactive [place] oral tablet PO, Daily, 0 2020 Medical Refill(s) [place] Calcium Chloride 500 mL, 500 Inactive [place] 0.0014 MEQ/ML / ml/hr, Infuse 2019 Nd dical Potassium Chloride Over: 1 hr, C enter 0.004 MEQ/ML / Route: IV, Sodium Chloride 500, Drug 0.103 MEQ/ML / form: INJ, Sodium Lactate ONCE, 0.028 MEQ/ML Priority: Injectable STAT, Dosing Solution Weight 84.545 kg, Start date: 02/27/20 7:19:00 CDT, Stop date: 02/27/20 7:19:00 CDT, 0 heparin Notes: porcine [place]er [place] heparin Active [address] [place] [address] heparin Route: MISC, Inactive [place] Drug form: [facility] Medical INJ, ONCE, Center Dosing Weight 84.545, [...] Plasmapheresis Calcium Gluconate 2.5 gm, Route: Inactive [place] IV, ONCE, 2019 Medical Dosing Weight Center 84.545, kg, Start date: 02/25/20 9:32:00 CDT, Stop date: 02/25/20 9:32:00 CDT Calcium Gluconate Notes: WASTE: Inactive [place] F/P - Sink; E 2019 [facility] Trash Bin albumin human 5% Notes: LOT#: Inactive [facility] intravenous M 2019 Medic al solution fg: Center (Same as: Albuminar) "blood product derivative&quo t; WASTE: F/P - Red; E -Red MEDICATION WASTE Product Size: 25 gm Product Wasted: _0__ gm Sulfamethoxazole 1 tab, Route: No Longer [place] 800 MG / PO, Drug Form: 2019 Medical Trimethoprim 160 TAB, Dosing Mitch ter MG Oral Tablet Weight 84.545, [Bactrim] kg, [id number], Start date: 02/22/20 20:00:00 CDT, Stop date: 02/28/20 8:00:00 CDT, 0 insulin glargine 30 unit, No Longer [place] Route: SUB-Q, 2019 Medical Drug form: Center SOLN, BID, Start date: 02/22/20 9:00:00 CDT, Duration: 30 day, Stop date: 03/22/20 17:00:00 CDT, 0 Lactated Ringers 1,000 mL, No Longer [place] IV 1,000 mL Rate: 100 2019 Medical [...] 0 Glucagon 1 mg, Route: No Longer [place] IM, Drug form: Active 2019 Medical PDR/INJ, PRN, Center Dosing Weight 84.545, kg, PRN Blood Glucose Results, Start date: 02/21/20 20:57:00 CDT, Duration: 30 day, Stop date: 03/22/20 20:56:00 CDT, 0 Insulin Lispro Notes: (Same No Longer [place] as: Humalog) Active 2019 Medical Roll in palms Center of hands gently; Do not shake vigorously. WASTE: F/P - Black; E - Municipal Trash Bin Stable for 28 days at room temperature. Expires in days from Date Insulin regular Notes: (Same Inactive [facility] as: Humulin R) 2019 Medical Roll in palms Center of hands gently; Do not shake vigorously. WASTE: F/P - Black; E - Municipal Trash Bin Stable for 31 days at room temperature Expires in days from Date Insulin regular Notes: (Same Inactive [facility] as: Humulin R) 2019 Medical Roll in palms Center of hands gently; Do not shake vigorously. WASTE: F/P - Black; E - Municipal Trash Bin Stable for 31 days at room temperature Expires in days from Date albumin human 5% Notes: LOT#: Inactive [facility] intravenous M 2019 Medic al solution fg: Center (Same as: Albuminar) "blood product derivative&quo t; WASTE: F/P - Red; E -Red MEDICATION WASTE Product Size: 25 gm Product Wasted: _0__ gm Calcium Gluconate Notes: WASTE: Inactive [facility] F/P - Sink; E 2019 Medical - Municipal [facility] Trash Bin albumin human 5% Notes: LOT#: Inactive [facility] intravenous M 2019 Medic al solution fg: Center (Same as: Albuminar) "blood product derivative&quo t; WASTE: F/P - Red; E -Red MEDICATION WASTE Product Size: 25 gm Product Wasted: ___ gm Lyrica Notes: (Same No Longer [place] as: Lyrica) Active 2019 Medical Center [place] 500 Notes: 500mg [place] elemental 2019 [facility] calcium = Center 1250mg calcium carbonate. Contains 500mg elemental calcium. (Same As: OsCal 500) Calcium Gluconate 2 tab, Route: Inactive [place] 650 MG Oral Tablet PO, ONCE, 2019 Med ical Dosing Weight Center 84.545, kg, Start date: 02/20/20 7:03:00 CDT, Stop date: 02/20/20 7:03:00 CDT remove patch 1 patch, No Longer [place] Route: TOP, Active 2019 [facility] Bedtime, Drug Center form: ERFILM, Start date: 02/19/20 21:00:00 CDT, Duration: 30 day, Stop date: 03/19/20 21:00:00 CDT, 0 albumin human 5% Notes: LOT#: Inactive [facility] intravenous M 2019 Medic al solution fg: Center (Same as: Albuminar) "blood product derivative&quo t; WASTE: F/P - Red; E -Red MEDICATION WASTE Product Size: 25 gm Product Wasted: _0__ gm Diphenhydramine 50 mg, Route: Inactive [facility] IVP, ONCE, 2019 Medical Dosing Weight Center 84.545, kg, Start date: 02/19/20 12:00:00 CDT, Stop date: 02/19/20 12:00:00 CDT Calcium Gluconate Notes: WASTE: Inactive [place] F/P - Sink; E 2019 [facility] Municipal Center Trash Bin albumin human 5% Notes: LOT#: Inactive [facility] intravenous M 2019 Medic al solution fg: [...] Longer [place] As: Crestor) Active 2019 [facility] Insulin regular Notes: (Same No Longer [facility] as: Humulin R) 2019 Medical Roll in palms Center of hands gently; Do not shake vigorously. WASTE: F/P - Black; E - Municipal Trash Bin Stable for 31 days at room temperature Expires in days from Date insulin glargine 20 unit, 0.2 No Longer [place] mL, Route: 2019 Medical SUB-Q, Drug Center [...] 0 Glucagon 1 mg, Route: No Longer [place] IM, Drug form: Active 2019 Medical PDR/INJ, PRN, Center Dosing Weight 84.545, kg, PRN Blood Glucose Results, Start date: 02/18/20 16:05:00 CDT, Duration: 30 day, Stop date: 03/19/20 16:04:00 CDT, 0 Insulin regular Notes: (Same No Longer [facility] as: Humulin R) Active 2019 Medical Roll in [place] Center of hands gently; Do not shake [...] 6:25:00 CDT Glucagon 1 mg, Route: Inactive [place] IM, PRN, 2019 Medical Dosing Weight Center 84.545, kg, PRN Blood Glucose Results, Start date: 02/18/20 6:26:00 CDT, Duration: 30 day, Stop date: 03/19/20 6:25:00 CDT Insulin regular 1 unit, Route: Inactive [place] SUB-Q, 2019 Medical TID-Before Center Meals, Dosing Weight 84.545, kg, PRN Blood Glucose Results, Start date: 02/18/20 6:26:00 CDT, Duration: 30 day, Stop date: 03/19/20 6:25:00 CDT potassium chloride Notes: (Same Inactive [place] 20 mEq oral as: K-Dur ) 2019 [...] s with feeding tube less than 14 [place] (Dobhoff, J-tube etc) and pediatric and patients. Tylenol Notes: Do not No Longer [place] exceed 4 Active 2019 Medical gm/day. (Same Center as: Tylenol) Calcium Gluconate Notes: WASTE: Inactive [place] F/P - Sink; E 2019 [facility] Center Trash Bin albumin human 5% Notes: LOT#: Inactive [facility] intravenous M 2019 Medic al solution fg: Center (Same as: Albuminar) "blood product derivative&quo t; WASTE: F/P - Red; E -Red MEDICATION WASTE Product Size: 25 gm Product Wasted: ___ gm Pyridostigmine 90 mg, Route: Inactive [place] GT, Drug form: 2019 Medical TAB, Q8H, Center Dosing Weight 84.545, kg, Start date: 02/17/20 16:00:00 CDT, Duration: 30 day, Stop date: 03/18/20 8:00:00 CDT, 0 Mestinon Notes: (Same No Longer [place] as: Mestinon) Active [address] [place] [address] Center pyridostigmine Notes: (Same No Longer [facility] as: Mestinon) Active 2019 Medical 30 [...] Furosemide 20 MG Notes: (Same No Longer [facility] Oral Tablet as: Lasix) Active 2019 Medical May cause GI Center upset. Give with food or milk. Lisinopril Notes: (Same No Longer [place] as as: Prinivil, Active 2020 [facility] Zestril) Center Sertraline Notes: (Same No Longer [place] as: Zoloft) Active 2019 [facility] Prednisone Notes: Take No Longer [place] with food. Active 2019 [facility] Thiamine Notes: (Same No Longer [place] As: Vitamin Active 2019 [facility] B1) Center Thyroxine Notes: Take 1 No Longer [place] as hour before or [address] [place] [address] 2 hours after Center meal; Enteral feeds [...] 0 Insulin Lispro Notes: (Same No Longer [place] as: Humalog) 2019 [facility] [...] 0:57:00 CDT Pyridostigmine Notes: (Same No Longer [place] as: Mestinon) Active 2020 Medical Center Prednisone Notes: Take No Longer [place] with food. Active 2020 [facility] Dextrose 5% in 1,000 mL, [place] Longer [place] Water IV 1,000 mL Rate: 50 Active 2019 Medic al ml/hr, Infuse Center over: 20 hr, Route: IV, Dosing Weight 84.545 kg, Total Volume: 1,000, Start date: 02/16/20 13:53:00 CDT, Duration: 30 day, Stop date: 03/17/20 13:52:00 CDT, 1.91, m2, 0 Pyridostigmine 60 mg = 1 tab, Active [place] 60 MG Oral PO, TID, 0 2019 Nd dical Tablet [Mestinon] Refill(s) Cent er Clonazepam Notes: (Same No Longer [place] As: KlonoPIN) Active 2019 [facility] Hazardous Drug Center Group 3:Reproductive risk Hazardous Drug -- Refer to safe handling procedure PPE Matrix Acetaminophen 500 1,000 mg = 2 No Longer [place] MG Oral Tablet tab, PO, TID, Active 2019 Med ical [Tylenol] 0 Refill(s) [place] Docusate Sodium 50 Notes: (Same Inactive [place] MG / sennosides, as Senokot-S) 2019 edical JAIL 8.6 MG Oral Equiv. to Center Tablet Cassidy-Colace. Pyridostigmine Notes: (Same Inactive [place] as: Mestinon) 2020 [facility] Furosemide 20 MG Notes: (Same Inactive [facility] Oral Tablet as: Lasix) [facility] Medical May cause GI Center upset. Give with food or milk. Lisinopril Notes: (Same [place]active [place] as: Prinivil, 2019 [facility] Zestril) [place] Sertraline Notes: (Same Inactive s as: Zoloft) [address] [place] [address] thiamine 100 mg 200 mg = 2 No Longer [place] oral tablet tab, PO, Daily Active 2019 [facility] Center 3 ML Insulin, See Active [place] Aspart, Human 100 Instructions, 2019 Medical UNT/ML Pen 10 unit SUB-Q Center Injector [NovoLog] TID-Before Meals and at bedtime, 0 Refill(s) 3 ML insulin 30 unit, No Longer [place] detemir 100 UNT/ML SUB-Q, BID, 0 Active 2019 [facility] Prefilled Syringe Refill(s) Cent er [Levemir] Thyroxine Notes: Take 1 Inactive [facility] s hour before or [address] [place] [address] 2 hours after Center meal; Enteral feeds may interefere with the absorption of this medication. (Same as:Synthroid) heparin sodium, Notes: porcine No Longer [place] porcine 2500 heparin Active 2019 [facility] UNT/ML Injectable Center Solution rosuvastatin Notes: (Same No Longer [place] As: Crestor) Active [address] [place] [address] Dextrose 50% 12.5 gm, 25 [place] Longer [place] Syringe (D50W) mL, Route: 2019 Medica l IVP, Drug Center Form: INJ, Dosing Weight 84.545, kg, PRN, PRN Blood Glucose Results, Start date: 02/15/20 19:49:00 CDT, Duration: 30 day, Stop date: 03/16/20 19:48:00 CDT, 0 Glucagon 1 mg, Route: No Longer [place] IM, Drug form: 2019 [facility] PDR/INJ, PRN, Center Dosing Weight 84.545, kg, PRN Blood Glucose Results, Start date: 02/15/20 19:49:00 CDT, Duration: 30 day, Stop date: 03/16/20 19:48:00 CDT, 0 Insulin Lispro Notes: (Same No Longer [place] as: Humalog) Active 2019 Medical Roll in palms Center of hands gently; Do not shake vigorously. WASTE: F/P - Black; E - Municipal Trash Bin Stable for 28 days at room temperature. Expires in days from Date Amlodipine Notes: (Same No Longer [place] as: Norvasc) Active 2019 [facility] Potassium Chloride 10 mEq = 1 Active [place] 10 MEQ Extended tab, PO, 2019 Medical Release Tablet Daily, # 30 Cente r [Klor-Con] tab, 0 Refill(s), other amLODIPine 5 mg 5 mg = 1 tab, Active [facility] oral tablet PO, Daily, # 2019 Medical 30 tab, 0 Center Refill(s), Pharmacy: [facility]/pharmacy #[id number], 149.86, cm, 12/06/19 15:12:00 CDT, Height, 90, kg, 11/23/19 2:25:00 CDT, Weight insulin lispro 100 2 unit, SUB-Q, Active [facility] units/mL TID-Before 2019 Medical injectable Meals, PRN Center solution Blood Glucose Results, before each meal, FOR BLOOD SUGAR 150-199, # 3 mL, 0 Refill(s), other lansoprazole 3 30 mg = 10 mL, Active [facility] mg/mL oral PO, BID-Before 2019 Medica l suspension Meals, # 600 Center mL, 0 Refill(s), other Lidocaine 0.04 1 patch, TOP, Active [facility] MG/MG Medicated Daily, X 10 2019 Medi roger Patch day, # 10 Center patch, 0 Refill(s), other 3 ML insulin 14 unit, Active [facility] detemir 100 UNT/ML SUB-Q, BID, # 2020 Medical Prefilled Syringe 3 mL, 0 Center [Levemir] Refill(s), other D50W (bolus) IV 12.5 gm, 25 No Longer [facility] mL, Route: 2019 Medical IVP, Drug Center Form: INJ, Dosing Weight 90, kg, PRN, PRN Blood Glucose Results, Start date: 12/19/19 8:19:00 CDT, Duration: 30 day, Stop date: 01/18/20 8:18:00 CDT, 0 Glucagon 1 mg, Route: No Longer [place] IM, Drug form: Active 2020 Medical PDR/INJ, PRN, Center Dosing Weight 90, kg, PRN Blood Glucose Results, Start date: 12/19/19 8:19:00 CDT, Duration: 30 day, Stop date: 01/18/20 8:18:00 CDT, 0 Insulin Lispro Notes: (Same No Longer [place] as: Humalog) Active 2020 Medical Roll in palms Center of hands gently; Do not shake vigorously. WASTE: F/P - Black; E - Municipal Trash Bin Stable for 28 days at room temperature. Expires in days from Date D50W (bolus) IV 12.5 gm, 25 No Longer [place] mL, Route: 2019 Medical IVP, Drug Center Form: INJ, Dosing Weight 90, kg, PRN, PRN Blood Glucose Results, Start date: 12/19/19 8:18:00 CDT, Duration: 30 day, Stop date: 01/18/20 8:17:00 CDT, 0 Glucagon 1 mg, Route: No Longer [place] IM, Drug form: 2019 Medical PDR/INJ, PRN, Center Dosing Weight 90, kg, PRN Blood Glucose Results, Start date: 12/19/19 8:18:00 CDT, Duration: 30 day, Stop date: 01/18/20 8:17:00 CDT, 0 Insulin Lispro Notes: (Same No Longer [place] as: Humalog) Active 2019 Medical Roll in palms Center of hands gently; Do not shake vigorously. WASTE: F/P - Black; E - Municipal Trash Bin Stable for 28 days at room temperature. Expires in days from Date Potassium Chloride Notes: (Same Inactive [place] 1.33 MEQ/ML Oral as: Potassium 2020 M edical Solution Chloride) Center Dextrose 50% 12.5 gm, 25 [place] Syringe (D50W) mL, Route: Active 2020 Medica l IVP, Drug Center Form: INJ, Dosing Weight 90, kg, PRN, PRN Blood Glucose Results, Start date: 12/16/19 15:42:00 CDT, Duration: 30 day, Stop date: 01/15/20 15:41:00 CDT, 0 Glucagon 1 mg, Route: No Longer [facility] IM, Drug form: 2019 Medical PDR/INJ, PRN, Center Dosing Weight 90, kg, PRN Blood Glucose Results, Start date: 12/16/19 15:42:00 CDT, Duration: 30 day, Stop date: 01/15/20 15:41:00 CDT, 0 Insulin Lispro Notes: (Same No Longer [facility] as: Humalog) 2019 Medical Roll in palms Center of hands gently; Do not shake vigorously. WASTE: F/P - Black; E - Municipal Trash Bin Stable for 28 days at room temperature. Expires in days from Date potassium Notes: (Same No Longer [facility] phosphate-sodium as: Phos-NaK) 2019 M edical phosphate 250 Each 1.5 gm Center mg-280 mg-160 mg pkt has 250mg oral powder for phosphorous. reconstitution Mix w/2.5oz water and stir. Potassium Chloride Notes: (Same Inactive [facility] as: KCL) 2019 Medical Infuse over 2 Center hours. Morphine Notes: (Same No Longer [facility] as:MORPhine Active 2019 Medical Sulfate) Center potassium Notes: (Same No Longer [facility] phosphate as: K Active 2019 Medical Phosphate.) Center Do not infuse phosphorous concurrently in the same line as TPN or IVF that contains calcium. For double lumen central lines, phosphorous may be infused in a separate lumen from TPN. 1 mMol phoshate has 1.47 mEq potassium Infuse over 4 hours insulin, isophane Notes: (Same No Longer [facility] as: Humulin N) 2019 Medical Roll [...] / as: Duoneb) 2019 Medical Ipratropium Center [place] 0.167 MG/ML Inhalant Solution Furosemide Notes: (Same [...] procedure PPE Matrix Lorazepam Notes: (Same Inactive [place] as: Ativan) 2020 Medical [facility] Notes: Infuse No Longer [place] over 15 Active 2019 Medical minutes Do Center not exceed 4gm/day of acetaminophen MEDICATION WASTE Product Size: 1000 mg Product Wasted: ___ mg Lidocaine Notes: (Same [place] Hydrochloride 0.02 as: Xylocaine Active 2019 Medical MG/MG Topical Gel Jelly, Glydo) Center Morphine Notes: (Same No Longer [place] as:MORPhine 2019 Medical Sulfate) Center Blistex topical Notes: Same No Longer [place] ointment as: Blistex Active 2019 Medical Center LR IV 1,000 mL 1,000 mL, [place] Rate: 75 2019 Medical ml/hr, Infuse Center over: 13.3 hr, Route: IV, Dosing Weight 90 kg, Total Volume: 1,000, Start date: 12/11/19 0:31:00 CDT, Duration: 1 day, Stop date: 12/12/19 0:30:00 CDT, 1.98, m2, 0 pantoprazole Notes: For IV No Longer [place] push Active 2019 [facility] reconstitute Center with 10 ml 0.9% sodium chloride and push over 2 minutes. (Same as: Protonix) Lovenox Notes: (Same No Longer [place] as: Lovenox) [address] Lanolin 0.157 Notes: (Same No Longer [place] MG/MG / Menthol as: 2019 Medical 0.0044 MG/MG / Calmoseptine) [address] ter Petrolatum 0.24 MG/MG / Zinc Oxide 0.206 MG/MG Topical Ointment [Calmoseptine] insulin, isophane Notes: (Same No Longer [place] as: Humulin N) 2019 Medical Roll in palms Center of hands gently; Do not shake vigorously. WASTE: F/P - Black; E - Municipal Trash Bin Stable for 31 days at room temperature Expires in days from Date Lasix Notes: (Same No Longer [place] as: Lasix) Active 2019 Medical May cause [...] 0 Insulin Lispro Notes: (Same No Longer [place] as: Humalog) 2019 Medical Roll in palms Center of hands gently; Do not shake vigorously. WASTE: F/P - Black; E - Municipal Trash Bin Stable for 28 days at room temperature. Expires in days from Date Dextrose 5% with 1,000 mL, No Longer [place] 0.45% NaCl IV Rate: 75 Active 2019 Medical 1,000 mL ml/hr, Infuse Center over: 13.3 hr, Route: IV, Dosing Weight 90 kg, Total Volume: 1,000, Start date: 12/09/19 19:56:00 CDT, Duration: 30 day, Stop date: 01/08/20 19:55:00 CDT, 1.98, m2, 0 pantoprazole Notes: For IV No Longer [place] additive 80 mg + push Active 2019 Medical Sodium Chloride reconstitute Mithc ter 0.9% IV 100 mL with 10 [...] No Longer [place] as:Altace) Active 2020 Medical [place] Dextrose 50% in 12.5 gm, 25 No [...] Longer [place] with food. Active 2020 [facility] Potassium Chloride Notes: (Same Inactive [place] as: [...] 0 Glucagon 1 mg, Route: No Longer [facility] IM, Drug form: Active 2020 Medical PDR/INJ, PRN, Center Dosing Weight 90, kg, PRN Blood Glucose Results, Start date: 12/06/19 12:15:00 CDT, Duration: 30 day, Stop date: 01/05/20 12:14:00 CDT, 0 Insulin regular Notes: (Same No Longer [facility] [place] as: Humulin R) Active 2020 Medical Roll in palms Center of hands gently; Do not shake vigorously. WASTE: F/P - Black; E - Municipal Trash Bin Stable for 31 days at room temperature Expires in days from Date Famotidine 20 MG Notes: (Same No Longer [facility] Oral Tablet as: Pepcid) Active 2020 [facility] [Pepcid] Center chlorhexidine Notes: (Same No Longer [facility] gluconate 1.2 As: Peridex) Active 2020 Medic al MG/ML Mouth[place] Center ocular lubricant Notes: (Same No Longer [facility] as: Active 2020 [facility] Lacri-Lube, Center Puralube, Duratears Naturale, Artificial Tears, and Tears Again ) chlorhexidine Notes: (Same No Longer [facility] gluconate 1.2 As: Peridex) Active 2020 Medic al MG/ML [place] Center Hydrocortisone Notes: (Same No Longer [facility] as: Active 2020 [facility] Solu-CORTEF) Center Neurontin Notes: ([facility]) Active [address] [place] [address] Center NS 1,000 mL 1,000 mL, No Longer [facility] Rate: 40 Active [facility] [...] being intubated (unless the nurse is a RETORT COOLER). Same as: Diprivan norepinephrine Route: IV, Inactive [...] CDT propofol (ANES) 10 Route: IV, Inactive [facility] [place] mg Drug form: 2019 Medical INJ, Start Center date: 12/05/19 8:55:00 CDT, Stop date: 12/05/19 9:55:00 CDT SUFentanil (ANES) Route: IV, Inactive [facility] 50 microgram Drug form: 2019 Medical [...] CDT Albuterol 0.833 Notes: (Same No Longer [place] MG/ML / as: Duoneb) Active 2020 Medical Ipratropium Center [place] 0.167 MG/ML Inhalant Solution Humalog Notes: (Same No Longer [facility] as: Humalog) Active 2020 Medical Roll in palms Center of hands gently; Do not shake vigorously. WASTE: F/P - Black; E - Municipal Trash Bin Stable for 28 days at room temperature. Expires in days from Date Humalog Notes: (Same Inactive [facility] as: Humalog) 2020 Medical Roll in palms Center of hands gently; Do not shake vigorously. WASTE: F/P - Black; E - Municipal Trash Bin Stable for 28 days at room temperature. Expires in days from Date Humalog Notes: (Same Inactive [facility] as: Humalog) 2020 Medical Roll in palms Center of hands gently; Do not shake vigorously. WASTE: F/P - Black; E - Municipal Trash Bin Stable for 28 days at room temperature. Expires in days from Date Insulin Lispro Notes: (Same No Longer [facility] as: Humalog) Active 2019 Medical Roll in palms Center of hands gently; Do not shake vigorously. WASTE: F/P - Black; E - Municipal Trash Bin Stable for 28 days at room temperature. Expires in days from Date Insulin Glargine 20 unit, 0.2 No Longer [facility] mL, Route: Active 2019 Medical SUB-Q, Drug Center form: SOLN, Daily, Dosing Weight 90, kg, Start date: 12/02/19 9:00:00 CDT, Duration: 30 day, Stop date: 12/31/19 9:00:00 CDT, 0 Levemir 20 unit, Inactive [facility] Route: SUB-Q, 2020 Medical Bedtime, Center [...] 0 Glucagon 1 mg, Route: No Longer [facility] IM, Drug form: Active 2019 Medical PDR/INJ, PRN, Center Dosing Weight 90, kg, PRN Blood Glucose Results, Start date: 11/29/19 21:47:00 CDT, Duration: 30 day, Stop date: 12/29/19 21:46:00 CDT, 0 Insulin Lispro Notes: (Same No Longer [facility] as: Humalog) Active 2019 Medical Roll in palms Center of hands gently; Do not shake vigorously. WASTE: F/P - Black; E - Municipal Trash Bin Stable for 28 days at room temperature. Expires in days from Date Insulin Glargine 20 unit, 0.2 No Longer [place] 100 UNT/ML mL, Route: 2019 Medical Injectable SUB-Q, Drug Center Solution [Lantus] form: SOLN, Q12H, Dosing Weight 90, kg, Start date: 11/29/19 21:00:00 CDT, Duration: 30 day, Stop date: 12/29/19 9:00:00 CDT, 0 Lidocaine Notes: ([place] Hydrochloride 10 as: Xylocaine) Active 2019 Medical MG/ML Injectable Center Solution Saline Flush 0.9% Notes: (Same No Longer [facility] as: BD Active 2019 Medical Posiflush) Center Saline Flush 0.9% Notes: (Same No Longer [facility] as: BD Active 2019 Medical Posiflush) Center Dextrose 5% with 1,000 mL, No Longer [place] 0.45% NaCl IV Rate: 40 2019 Medical 1,000 mL ml/hr, Infuse Center over: 25 hr, Route: IV, Dosing Weight 90 kg, Total Volume: 1,000, Start date: 11/29/19 6:28:00 CDT, Duration: 30 day, Stop date: 12/29/19 6:27:00 CDT, 1.98, m2, 0 Melatonin 3 MG Notes: (Same No Longer [facility] Extended Release as: Melatonin) Active 2019 Medical Tablet Center sennosides, JAIL Notes: (Same No Longer 11/25/ H [place] as: Senokot) Active 2019 Medical Center Insulin Glargine 20 unit, 0.2 No Longer [place] 100 UNT/ML mL, Route: Active 2019 Medical Injectable SUB-Q, Drug Center Solution [Lantus] form: SOLN, Q12H, Dosing Weight 90, kg, Start date: 11/25/19 21:00:00 CDT, Duration: 30 day, Stop date: 12/25/19 9:00:00 CDT, 0 Ramipril Notes: (Same No Longer [facility] as:Altace) Active 2019 [facility] Center Oxycodone Notes: (Same [place] Hydrochloride 1 as: 2019 Medical MG/ML Oral 'Roxicodone) Center Solution rosuvastatin Notes: (Same [place] Long[place] As: Crestor) Active 2019 [facility] Acetaminophen 325 650 mg = 2 Active [facility] MG Oral Tablet tab, PO, PRN, 2019 Med ical [Tylenol] 0 Refill(s) Center clonazePAM 0.5 mg 0.5 mg = 1 Active [facility] oral tablet tab, PO, BID, 2019 Medica l 0 Refill(s) Center sertraline 25 mg 25 mg = 1 tab, Active [facility] oral tablet PO, Daily, 0 2019 Medical Refill(s) Center predniSONE 20 mg 20 mg = 1 tab, Active [facility] oral tablet PO, Daily, 0 2019 Medical Refill(s) Center rosuvastatin 20 mg 20 mg = 1 tab, Active [facility] oral tablet PO, Daily, 0 2019 Medical Refill(s) Center ramipril 2.5 mg 2.5 mg = 1 Active [place] oral capsule cap, PO, 2019 Medical Daily, 0 Center Refill(s) 3 ML insulin 25 unit, No Longer [facility] detemir 100 UNT/ML SUB-Q, BID, # Active 2019 Medical Prefilled Syringe 3 mL, 3 Center [Levemir] Refill(s) levothyroxine 88 88 microgram = Active [facility] mcg (0.088 mg) 1 tab, PO, 2019 Medica l oral tablet Daily, 0 Center Refill(s) Klor-Con 10 = 1 tab, PO, [place] Long[place] BID, 0 2019 Medical Refill(s) Center 3 ML Insulin, 10 unit, [facility] Aspart, Human 100 SUB-Q, Active 2019 Medica l UNT/ML Pen TID-Before Center Injector [NovoLog] Meals, 0 Refill(s) Insulin Glargine 20 unit, 0.2 No Longer 06/25/ [facility] 100 UNT/ML mL, Route: Active 2019 Medical Injectable SUB-Q, Drug Center Solution [Lantus] form: SOLN, Bedtime, Dosing Weight 90, kg, Start date: 11/23/19 21:00:00 CDT, Duration: 30 day, Stop date: 12/22/19 21:00:00 CDT, 0 Insulin regular Notes: (Same Inactive [place] as: Humulin R) 2020 Medical Roll in [...] 0 Glucagon 1 mg, Route: No Longer [place] IM, Drug form: Active 2019 Medical PDR/INJ, [...] Medical Center Lasix Notes: (Same No Longer [facility] as: Lasix) Active 2020 Medical May [...] saline 0.9% 1,000 mL, No Longer H [place] IV 1,000 mL Rate: [address] [place] [address] ml/hr, Infuse Center over: 13.3 hr, Route: IV, Dosing Weight 90 kg, Total Volume: 1,000, Start date: 11/23/19 10:33:00 CDT, Duration: 30 day, Stop date: 12/23/19 10:32:00 CDT, 1.98, m2, 0 Zoloft Notes: (Same No Longer [facility] as: Zoloft) Active 2020 [facility] Center Prednisone Notes: Take [place] Longer [place] with food. Active 2020 [facility] Docusate Notes: (Same No Longer [facility] as: Colace) Active 2020 Medical (Do Not Crush) Center sennosides, JAIL Notes: (Same No Longer 11/22/ M H [place] as: Senokot) Active 2020 [facility] Albuterol 0.833 Notes: (Same No Longer 11/22/ M H [place] MG/ML / as: Duoneb) Active 2020 [facility] Ipratropium [place] 0.167 MG/ML Inhalant Solution Synthroid Notes: Take 1 No Longer [place] as hour before or Active 2020 Medical 2 hours after Center meal; Enteral feeds may interefere with the absorption of this medication. (Same as:Synthroid) remove patch Notes: Remove No Longer [place] patch 12 hours 2019 Medical after Center application each day. Pyridostigmine Notes: (Same No Longer [place] as: Mestinon) Active 2019 [facility] Amlodipine Notes: (Same No Longer [place] as: Norvasc) Active [address] [place] [address] Enoxaparin Notes: (Same In[place] as: Lovenox) [address] [place] [address] Lidocaine Notes: Apply No Longer [place] [...] 0 Glucagon 1 mg, Route: No Longer [place] IM, Drug form: 2019 Medical PDR/INJ, PRN, Center Dosing Weight 100, kg, PRN Blood Glucose Results, Start date: 11/22/19 16:16:00 CDT, Duration: 30 day, Stop date: 12/22/19 16:15:00 CDT, 0 Insulin regular Notes: (Same No Longer [facility] as: Humulin R) 2019 Medical Roll in [...] Saline Flush 0.9% Notes: Same No Longer [place] as: BD Active 2019 Medical Posiflush Center Sterile Ativan Notes: (Same Inactive [place] as: Ativan) 2019 [facility] Ativan 1 mg, Route: Inactive [place] IVP, Drug 2019 Medical form: INJ, Center ONCE, Dosing Weight 100, kg, PRN as needed for anxiety, Priority: Routine, Start date: 11/22/19 15:28:00 CDT Calcium Chloride 500 mL, Infuse Inactive [place] 0.0014 MEQ/ML / Over: 1 hr, 2019 [facility] roger Potassium Chloride Route: IV, Ce nter 0.004 MEQ/ML / ONCE, Sodium Chloride Priority: 0.103 MEQ/ML / STAT, Dosing Sodium Lactate Weight 100 kg, 0.028 MEQ/ML Start date: Injectable 11/22/19 Solution 11:17:00 CDT, Stop date: 11/22/19 11:17:00 CDT Iohexol 150 mL, Route: Inactive [place] IVP, Drug 2019 Medical Form: SOLN, Center Dosing Weight 100, kg, ONCALL, STAT, Start date: 11/22/19 9:50:00 CDT, Duration: 1 doses or times, Dose = 2.2ml/kg, Max dose = 150ml -- "To be infused by Radiology Staff ONLY" Fentanyl Notes: (Same Inactive [place] as: Sublimaze) 2019 Medical Preservative Center free. [...] 7:32:00 CDT Iohexol 100 mL, Route: Inactive [facility] IVP, Drug 2020 Medical Form: SOLN, [place] Dosing Weight 100, kg, ONCALL, STAT, Start date: 11/22/19 7:08:00 CDT, Duration: 1 doses or times, Dose = 2.2ml/kg, Max dose = 100ml -- "To be infused by Radiology Staff ONLY" heparin flush Notes: (Same Inactive [facility] [place] as: Heparin 2019 Medical Lock Flush) [place] heparin 100 unit, Inactive [facility] Route: IVP, 2019 Medical ONCE, Dosing Center Weight 100, kg, Start date: 03/04/19 17:24:00 CDT, Stop date: 03/04/19 17:24:00 CDT rosuvastatin 10 mg 20 mg = 2 tab, Active [facility] oral tablet PO, Bedtime, # 2019 Medic al 180 tab, 3 Center Refill(s) amLODIPine 10 mg 10 mg, PO, Active [facility] [place] oral tablet Daily, # 30 2019 Medical tab, 0 Center Refill(s) Ergocalciferol 50,000 Active [facility] [address] UNT Oral IntlUnit = 1 2019 Medi roger Capsule cap, PO, Q7D, Center # 5 cap, 0 Refill(s) Famotidine 20 MG 20 mg = 1 tab, Active [facility] Oral Tablet PO, Daily, # 2019 Medical 30 tab, 0 Center Refill(s) Furosemide 20 MG 20 mg = 1 tab, Active [facility] Oral Tablet PO, Daily, # 2019 Medical [Lasix] 30 tab, 0 Center Refill(s) Insulin Glargine 15 unit, Active [place] 100 UNT/ML SUB-Q, Daily, 2019 Medical Injectable # 15 mL, 0 Center Solution [Lantus] Refill(s) linezolid 600 mg 600 mg = 1 Active [place] oral tablet tab, PO, 2019 Medical [id number], X 7 Center day, # 14 tab, 0 Refill(s) meclizine 12.5 mg 12.5 mg = 1 Active [facility] oral tablet tab, PO, TID, 2019 [...] PO, Active [place] 800 MG / [id number], X 7 2019 Medical Trimethoprim 160 day, [...] [place] oral tablet tab, PO, 2019 Medical [id number], 0 Center Refill(s) meclizine 12.5 mg 12.5 [...] tab, PO, Inactive [place] 800 MG / [id number], 0 2019 Medical Trimethoprim 160 Refill(s) Cente r MG Oral Tablet [Bactrim] Acetaminophen 325 650 mg = 2 Inactive [place] MG Oral Tablet tab, PO, Q6H, 2019 Med ical PRN Pain Score Center 7-10, 0 Refill(s) Ergocalciferol 50,000 Inactive [facility] [address]78 UNT Oral IntlUnit = 1 2019 Medi roger Capsule cap, PO, Q7D, Center 0 Refill(s) Famotidine 20 MG 20 mg = 1 tab, Inactive [place] Oral Tablet PO, Daily, 0 2018 Medical Refill(s) [place] Hydroxyzine 25 mg = 1 cap, Inactive [place] Hydrochloride 25 PO, QID, PRN 2019 Me dical MG Oral Capsule Anxiety, 0 Cente r Refill(s) predniSONE 5 mg 25 mg = 5 tab, Inactive [facility] oral tablet PO, Daily, 0 2018 Medical Refill(s) [place] Flagyl 500 mg, 1 tab, Inactive [facility] Route: PO, 2019 Medical Drug form: [place] TAB, [id number], Dosing Weight 100, kg, Start date: 03/04/19 9:00:00 CDT, Duration: 14 day, Stop date: 03/18/19 1:00:00 CDT, ABX Indication: Skin/Soft Tissue Infection, 0 Furosemide 40 MG Notes: (Same No Longer [facility] Oral Tablet as: Lasix) Active 2019 Medical [Lasix] May cause GI Center upset. Give with food or milk. Meclizine Notes: (Same [place] Long[place] as: Antivert) Active 2019 Medical [place] pyridostigmine 60 60 mg = 1 tab, No Longer 03/02 [place] mg oral tablet PO, TID, # 180 Active 2019 Me dical tab, 0 Center Refill(s) Hydroxyzine Notes: (Same [place] Longer [place] as: Vistaril) Active 2019 [facility] Insulin Glargine 15 unit, 0.15 No Longer [place] 100 UNT/ML mL, Route: Active 2019 [facility] Injectable SUB-Q, Drug Center Solution [Lantus] form: SOLN, Daily, Dosing Weight 90.909, kg, Start date: 02/28/19 9:00:00 CDT, Duration: 30 day, Stop date: 03/29/19 9:00:00 CDT, 0 Insulin Lispro Notes: (Same No Longer [facility] as: Humalog) Active 2019 Medical Roll in palms Center of hands gently; Do not shake vigorously. WASTE: F/P - Black; E - Municipal Trash Bin Stable for 28 days at room temperature. Expires in days from Date Seroquel Notes: (Same No Longer [facility] as: SEROquel) Active 2019 [facility] linezolid 600 mg, 1 tab, [place] Longer [place] Route: PO, Active 2019 Medical Drug form: Center TAB, [id number], Dosing Weight 90.909, kg, Start date: 02/26/19 17:00:00 CDT, Duration: 10 day, Stop date: 03/08/19 8:00:00 CDT, ABX Indication: Skin/Soft Tissue Infection, 0 Sulfamethoxazole 2 tab, Route: No Longer [facility] 800 MG / PO, Drug Form: Active 2019 [facility] Trimethoprim 160 TAB, Dosing [address] ter MG Oral Tablet Weight 90.909, [Bactrim] kg, [id number], Start date: 02/26/19 17:00:00 CDT, Duration: 10 day, Stop date: 03/08/19 5:00:00 CDT, 0 Lactated [place] Route: IV, Inactive [place] Injection IV Total Volume: 2019 Medic al [...] vigorously. WASTE: F/P - Black; E - [employer] Trash Bin Stable for 31 days at [...] 03/24/19 23:52:00 CDT ertapenem Notes: No Longer [place] MEDICATION Active 2019 Medical WASTE Center Product Size: 1000 mg Product Wasted: ___ mg insulin, isophane Notes: (Same No Longer [place] as: Humulin N) Active 2019 Medical Roll [...] Saline Flush 0.9% 10 mL, Route: Inactive [facility] IVP, Drug 2019 Medical Form: INJ, [...] Saline Flush 0.9% 10 mL, Route: Inactive [facility] IVP, Drug 2018 Medical Form: INJ, Center Dosing Weight 90.909, kg, PRN, PRN Line Flush, Start date: 02/21/19 13:20:00 CDT, Duration: 30 day, Stop date: 03/23/19 13:19:00 CDT Lidocaine 2 spray, Inactive [place] Hydrochloride 20 Route: TOP, 2019 Med ical MG/ML Topical ONCE, Start Center [place] date: 02/21/19 13:20:00 CDT, Stop date: 02/21/19 13:20:00 CDT Lidocaine Notes: (Same [place] Longer [place] Hydrochloride 10 as: Xylocaine) Active 2019 Medical MG/ML Injectable Center Solution Saline Flush 0.9% 10 mL, Route: Inactive [facility] IVP, Drug 2019 Medical Form: INJ, [...] Saline Flush 0.9% Notes: (Same No Longer [place] as: BD Active 2019 Medical Posiflush) Center insulin, isophane Notes: (Same Inactive [facility] as: Humulin N) 2019 Medical Roll in palms Center of hands gently; Do not shake vigorously. WASTE: F/P - Black; E - Municipal Trash Bin Stable for 31 days at room temperature Expires in days from Date Melatonin Notes: (Same No Longer [facility] as: Melatonin) Active 2018 Medical Center Zyprexa Notes: (Same No Longer [place] As: ZyPREXA Active 2019 Medical IM). Center insulin, isophane Notes: (Same Inactive [facility] as: Humulin N) 2019 Medical Roll in palms Center of hands gently; Do not shake vigorously. WASTE: F/P - Black; E - Municipal Trash Bin Stable for 31 days at room temperature Expires in days from Date insulin, isophane Notes: (Same Inactive [facility] as: Humulin N) 2019 Medical Roll in palms Center of hands gently; Do not shake vigorously. WASTE: F/P - Black; E - [facility] Stable for 31 days at room temperature Expires in days from Date Iohexol 100 mL, Route: Inactive [place] IVP, Drug 2019 Medical Form: MORAIMA [place] Dosing Weight 90.909, kg, ONCALL, STAT, Start [...] from Date Potassium Chloride Notes: (Same Inactive [facility] as: K-) 2019 Medical "Do Not Crush" Center Give with food and full glass of water For patients unable to swallow tablet, dissolve in one half glass of water. Allow about 2 minutes for the tablets to disintegrate. Stir before giving to prepare slurry and administer. Please exclude Patient’ s with feeding tube less than 14 [place] (Dobhoff, J-tube etc) and pediatric and patients. [...] from Date Seroquel Notes: (Same No Longer [facility] as: SEROquel) Active 2019 Medical Center insulin detemir Notes: [place] Non-Formulary 2019 Medical Drug (Same Center as [facility]) "Single Patient Use Only" Do not hold insulin without contacting prescriber WASTE: F/P - Black; E - [facility] Stable for 42 days at room temperature Expires in days from Date Iohexol Notes: (same Inactive [facility] as:Omnipaque 2019 Medical 350). WASTE: Center F/P - Black; E - [facility] insulin detemir Notes: Inactive [facility] Non-Formulary 2019 Medical Drug (Same Center as Le[facility]) "Single Patient Use Only" Do not hold insulin without contacting prescriber WASTE: F/P - Black; E - [facility] Stable for 42 days at room temperature Expires in days from Date vancomycin + 2001 mg: No Longer [facility] Sodium Chloride infuse over Active 2018 Medi roger 0.9% IV 250 mL 2.5 hours For Ce nter adult patients only: Round to nearest 250 mg per Medical Staff approval MEDICATION WASTE Product Size: 1000 mg Product Wasted: ___ mg ertapenem Notes: No Longer [facility] MEDICATION Active 2019 Medical WASTE Center Product Size: 1000 mg Product Wasted: ___ mg vancomycin + 2001 mg: Inactive [facility] Sodium Chloride infuse over 2019 Medi roger 0.9% IV 500 mL 2.5 hours For Ce nter adult patients only: Round to nearest 250 mg per Medical Staff approval MEDICATION WASTE Product Size: 1000 mg Product Wasted: ___ mg Famotidine Notes: (Same No Longer [facility] as as: Pepcid) Active 2019 Medical [place] vancomycin + 2001 mg: Inactive [facility] Sodium Chloride infuse over 2019 Medi roger 0.9% IV 500 mL 2.5 hours For Ce nter adult patients only: Round to nearest 250 mg per Medical Staff approval MEDICATION WASTE Product Size: 1000 mg Product Wasted: ___ mg Vancomycin 1,000 mg, Inactive [facility] Route: IVPB, 2019 Medical Drug form: Center INJ, ABXQ8H, Dosing Weight 90.909, kg, Start date: 02/16/19 8:00:00 CDT, Duration: 7 day, Stop date: 02/23/19 0:00:00 CDT, ABX Indication: Skin/Soft Tissue Infection Humalog Notes: (Same No Longer [facility] as: Humalog) Active 2019 Medical Roll in palms Center of hands gently; Do not shake vigorously. WASTE: F/P - Black; E - [facility] Tr[facility] Stable for 28 days at room temperature. Expires in days from Date Levemir Notes: No Longer [facility] Non-Formulary Active 2019 Medical Drug (Same Center as [facility]) "Single Patient Use Only" Do not hold insulin without contacting prescriber WASTE: F/P - Black; E - [facility] Trash [facility] Stable for 42 days at room temperature Expires in days from Date Humalog Notes: (Same Inactive [facility] as: Humalog) 2019 Medical Roll in [...] ___ mg Insulin Lispro Notes: (Same Inactive [facility] as: Humalog) 2019 Medical Roll in [...] 0 Insulin Lispro Notes: (Same No Longer [facility] as: Humalog) Active 2019 Medical Roll [...] 20:31:00 CDT Morphine Notes: (Same No Longer [place] as:MORPhine Active 2019 Medical Sulfate) Center Insulin Lispro Notes: (Same Inactive [facility] as: Humalog) 2019 Medical Roll in [...] from Date Insulin Lispro Notes: (Same Inactive [facility] as: Humalog) 2019 Medical Roll in palms Center of hands gently; Do not shake vigorously. WASTE: F/P - Black; E - [facility] Tr[facility] Stable for 28 days at room temperature. Expires in days from Date Haloperidol Notes: (Same No Longer [place] as: Haldol) Active 2019 Medical Center Morphine 1 mg, Route: Inactive [facility] IV, ONCE, 2019 Medical Dosing Weight Center 90.909, kg, Priority: STAT, Start date: 02/10/19 13:32:00 CDT, Stop date: 02/10/19 13:32:00 CDT vancomycin 2001 mg: Inactive [facility] infuse over 2019 Medical 2.5 hours Center [facility] Notes: No Longer [facility] Non-Formulary Active 2019 Medical Drug (Same [...] Wasted: _0__ mg Vancomycin 2001 mg: Inactive [place] infuse over 2019 Medical 2.5 hours For Center adult patients only: Round to nearest 250 mg per Medical Staff approval MEDICATION WASTE Product Size: 1000 mg Product Wasted: ___ mg Isolyte S PH-7.4 Notes: (Same Inactive [facility] ([place]) IV as: Isolyte S 2019 Medical PH 7.4) Center Clindamycin Notes: (Same [place] Longer [place] As: Cleocin) Active 2019 Medical Center [facility] Notes: No Longer [place] Non-Formulary Active 2019 Medical Drug (Same Center as [facility]) "Single Patient Use Only" Do not hold insulin without contacting prescriber WASTE: F/P - Black; E - [facility] Trash [facility] Stable for 42 days at room temperature Expires in days from Date Humalog Notes: (Same No Longer [facility] as: Humalog) Active 2019 Medical Roll [...] 0 Glucagon 1 mg, Route: No Longer [facility] IM, Drug form: Active 2019 Medical PDR/INJ, PRN, Center Dosing Weight 90.909, kg, PRN Blood Glucose Results, Start date: 02/08/19 1:33:00 CDT, Duration: 30 day, Stop date: 03/10/19 1:32:00 CDT, 0 Insulin Lispro Notes: (Same No Longer [facility] as: Humalog) Active 2019 Medical Roll in palms Center of hands gently; Do not shake vigorously. WASTE: F/P - Black; E - [facility] Trash Bin Stable for 28 days at room temperature. Expires in days from Date Humalog Notes: (Same Inactive [place] as: Humalog) 2019 Medical Roll in palms [...] normal saline 0.9% 1,000 mL, No Longer [facility] IV 1,000 mL Rate: 75 Active 2019 Medical ml/hr, Infuse Center over: 13.3 hr, Route: IV, Dosing Weight 90.909 kg, Total Volume: 1,000, Start date: 02/07/19 22:50:00 CDT, Duration: 30 day, Stop date: 03/09/19 22:49:00 CDT, 1.99, m2, 0 remove patch 1 patch, No Longer [place] Route: TOP, Active 2019 Medical Bedtime, Drug Center form: ERFILM, Start date: 02/07/19 21:00:00 CDT, Duration: 30 day, Stop date: 03/08/19 21:00:00 CDT, 0 Humalog Notes: (Same Inactive [facility] as: Humalog) 2019 Medical Roll in palms Center of hands gently; Do not shake vigorously. WASTE: F/P - Black; E - [facility] Trash [facility] Stable for 28 days at room temperature. 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, 0 Ativan Notes: (Same No Longer [place] as: Ativan) Active 2019 [facility] Calcium Carbonate Notes: No Longer [place] 1250 MG / (calcium Active 2019 [facility] Cholecalciferol carbonate-vit Ce nter 400 UNT Chewable D Tablet 500mg-400unit chew TAB) Same as: Oscal 500+D heparin Notes: porcine [place] Longer [place] heparin Active 2019 [facility] tramadol 50 mg, 1 tab, No Longer [...] Furosemide 40 MG Notes: (Same No Longer [place] Oral Tablet as: Lasix) Active 2019 Medical [...] 0 Glucagon 1 mg, Route: No Longer [place] IM, Drug form: Active 2019 Medical PDR/INJ, PRN, Center Dosing Weight 90.909, kg, PRN Blood Glucose Results, Start date: 02/05/19 16:39:00 CDT, Duration: 30 day, Stop date: 03/07/19 16:38:00 CDT, 0 Insulin regular Notes: (Same No Longer [place] as: Humulin R) Active 2019 Medical Roll in palms Center of hands gently; Do not shake vigorously. WASTE: F/P - Black; E - [employer] Trash Bin Stable for 31 days at room temperature Expires in days from Date Mestinon Notes: (Same No Longer [place] as: Mestinon) Active 2019 [facility] Prednisone 30 mg, 3 tab, No Longer [...] MG 40 mg = 1 tab, Active [place] Oral Tablet PO, BID 2019 Medical [Lasix] Diuretic, 0 Center Refill(s) Furosemide 40 MG Notes: (Same Inactive H [place] Oral Tablet as: Lasix) 2019 Medical [Lasix] [...] Furosemide 40 MG Notes: (Same No Longer [facility] Oral Tablet as: Lasix) Active 2019 Medical [Lasix] May cause GI Center upset. Give with food or milk. Amlodipine Notes: (Same No Longer [place] as as: Norvasc) Active 2019 Medical Center Ramipril Notes: (Same No Longer [place] as:Altace) Active 2019 Medical Center ceFAZolin Notes: (Same Inactive [facility] as Ancef) 2019 Medical Center Calcium Gluconate Notes: WASTE: Inactive [place] F/P - Sink; E 2019 [facility] Center Trash Bin predniSONE 20 mg [...] other albumin human 5% Notes: LOT#: Inactive [facility] intravenous M 2018 Medic al solution fg: Center (Same as: Albuminar) "blood product derivative&quo t; WASTE: F/P - Red; E -Red MEDICATION WASTE Product Size: 25 gm Product Wasted: ___ gm Prednisone Notes: Take No Longer [place] with food. Active 2019 Medical Center Insulin Glargine 34 unit, 0.34 No Longer [place] 100 UNT/ML mL, Route: Active 2019 Medical Injectable SUB-Q, Drug Center Solution [Lantus] form: SOLN, Daily, Dosing Weight 92, kg, Start date: 01/01/19 9:00:00 CDT, Duration: 30 day, Stop date: 01/30/19 9:00:00 CDT, 0 Insulin Lispro Notes: (Same No Longer [facility] as: Humalog) Active 2019 Medical Roll in palms Center of hands gently; Do not shake vigorously. WASTE: F/P - Black; E - [facility] Trash Bin Stable for 28 days at room temperature. Expires in days from Date Insulin Glargine Notes: (Same No Longer [place] 100 UNT/ML as: Lantus) Do Active 2018 Medica l Injectable not hold Center Solution [Lantus] insulin without contacting prescriber WASTE: F/P - Black; E - [facility] Trash Bin "single patient use only" Stable for 28 days at room temperature Expires in days from Date Calcium Gluconate Notes: WASTE: Inactive [facility] F/P - Sink; E 2018 Medical - [facility] Trash Bin albumin human 5% Notes: LOT#: Inactive [facility] intravenous M 2018 Medic al solution fg: [...] No Longer [place] Chloraseptic Active 2019 Medical [place] (Same Center as: Chloraseptic, Sore Throat [place]) WASTE: F/P - Black; E - Municipal [...] 2019 Medical (Do Not Crush) Center sennosides, JAIL Notes: (Same No Longer [place] 8.6 MG Oral Tablet as: Senokot) Active 2019 Medical Center Prednisone Notes: Take No Longer [place] with food. Active 2018 [facility] insulin, isophane Notes: (Same No Longer [place] as: Humulin N) Active 2018 Medical Roll in palms Center of hands gently; Do not shake vigorously. WASTE: F/P - Black; E - [facility] Trash Bin Stable for 31 days at room temperature Expires in days from Date insulin, isophane Notes: (Same Inactive [place] as: Humulin N) 2019 Medical Roll in palms Center of hands gently; Do not shake vigorously. WASTE: F/P - Black; E - [facility] Trash Bin Stable for 31 days at room temperature Expires in days from Date heparin sodium, Notes: porcine No Longer [place] porcine 2500 heparin Active [facility] [...] Insulin regular Notes: (Same No Longer [facility] as: Humulin R) Active 2019 Medical Roll in palms Center of hands gently; Do not shake vigorously. WASTE: F/P - Black; E - Municipal Trash Bin Stable for 31 days at room temperature Expires in days from Date insulin, isophane Notes: (Same No Longer [facility] as: Humulin N) Active 2019 Medical Roll in palms Center of hands gently; Do not shake vigorously. WASTE: F/P - Black; E - [facility] Trash Bin Stable for 31 days at room temperature Expires in days from Date Zithromax 250 mg Notes: Take 1 No Longer [facility] oral tablet hour before or Active 2019 Medic al 2 hours after Center meals. (Same As: Zithromax) Lanolin 0.157 Notes: (Same No Longer [facility] MG/MG / Menthol as: Active 2019 Medical 0.0044 MG/MG / Calmoseptine) Mitch ter Petrolatum 0.24 MG/MG / Zinc Oxide 0.206 MG/MG Topical Ointment Famotidine Notes: (Same No Longer [place] as as: Pepcid) Active 2019 [facility] Midodrine Notes: (Same [place] Long[place] as:Proamatine) Active 2019 [facility] albumin human 5% Notes: LOT#: Inactive [facility] [place] intravenous 2019 Medica l solution Mfg: Center WASTE: F/P - Red; E -Red (Same as: Albuminar) "blood product derivative" Midodrine Notes: (Same Inactive [facility] as:Proamatine) 2019 [facility] Center azithromycin 500 Notes: Take 1 Inactive [facility] mg oral tablet hour before or 2019 Me dical 2 hours after Center meals. (Same As: Zithromax) Calcium Gluconate 3 gm, Route: Inactive [place] IV, 2019 Medical Continuous, Center Dosing Weight 92, kg, Start date: 12/26/18 9:00:00 CDT, Duration: 30 day, Stop date: 01/25/19 8:59:00 CDT albumin human 5% 2.25 Liter, Inactive [facility] intravenous Route: IV, 2019 Medical solution Dosing Weight Center 92, kg, ONCE, Start date: 12/26/18 8:41:00 CDT, Stop date: 12/26/18 8:41:00 CDT, Indication: Plasmapheresis Norepinephrine Notes: Not for No Longer [facility] direct Active 2019 Medical administration Center - DILUTE. Protect from light. (Same as:Levophed). Administer by either central venous catheter or peripherally-i nserted central catheter (PICC) line. Insulin regular Notes: Final No Longer [facility] 100 unit + Concentration Active 2019 [facility] 1unit/1ml Center WASTE: F/P - Black; E - Municipal Trash Bin Dextrose 50% 6.25 gm, 12.5 No Longer [facility] Syringe mL, Route: Active 2019 [facility] IVP, Drug Center Form: INJ, Dosing Weight 92, kg, PRN, PRN Abnormal Lab Result, Start date: 12/25/18 20:23:00 CDT, Duration: 30 day, Stop date: 01/24/19 20:22:00 CDT, 0 Famotidine Notes: (Same No Longer [place] as: Pepcid) Active 2019 Medical Center Mestinon Notes: (Same No Longer [facility] as: Mestinon) Active 2019 Medical [place] Sodium Chloride 3% Notes: SEE RT No Longer 12/25 [facility] inhalation DOCUMENTATION Active 2019 Medical solution (Same as: [place] Hypertonic Saline 3%, Inhalation) fondaparinux Notes: (Same [place] Longer [place] as: Arixtra) Active 2019 [facility] Center Albuterol 1 MG/ML Notes: SEE RT No Longer [facility] Inhalant Solution DOCUMENTATION Active 2019 Medical (Same as: [place] Proventil) Calcium Gluconate Notes: WASTE: Inactive [facility] F/P - Sink; E 2019 Medical [facility] Trash Bin albumin human 5% Notes: LOT#: Inactive [facility] intravenous M 2019 Medic al solution fg: [...] as:Synthroid) ocular lubricant Notes: (Same No Longer [place] as: Active 2018 Medical Lacri-Lube, Center Puralube, Duratears Naturale, Artificial Tears, and Tears Again ) Prednisone 50 MG 50 mg = 1 tab, No Longer [place] Oral Tablet PO, Daily, 0 Active 2018 Medical Refill(s) Center rosuvastatin 20 mg 20 mg = 1 tab, No Longer 11/30 [place] oral tablet PO, Bedtime, 0 Active 2018 Medic al Refill(s) Center ramipril 10 mg 10 mg = 1 cap, Active [place] oral capsule PO, Daily, 0 2018 Medica l Refill(s) Center Amlodipine 10 mg, PO, Active [facility] Daily, 0 2018 Medical Refill(s) Center Furosemide 80 mg, PO, No Longer [facility] Daily, 0 Active 2018 Medical Refill(s) Center Potassium Chloride 20 mEq, PO, Active H [place] Daily, 0 2018 Medical Refill(s) Center Pyridostigmine 60 mg, PO, Active [place] as Q8H, 0 2018 Medical Refill(s) Center sertraline 25 mg 25 mg = 1 tab, Active [facility] oral tablet PO, Daily, 0 2018 Medical Refill(s) Center Thyroxine 88 microgram, Active [facility] PO, Daily, 0 2018 Medical Refill(s) Center Alendronic acid 70 70 mg = 1 tab, Active [facility] MG Oral Tablet PO, 0 2018 Medical [Fosamax] Refill(s) Center Levemir SUB-Q, 0 No Longer [facility] Refill(s) Active 2019 [facility] Trulicity Pen SUB-Q, 0 Active [facility] Refill(s) 2019 [facility] Famotidine 20 mg, 2 mL, No Longer [place] as Route: IVP, Active 2019 Medical Drug form: Center INJ, Q12H, Dosing Weight 102.273, kg, Start date: 12/24/18 21:00:00 CDT, Duration: 30 day, Stop date: 01/23/19 9:00:00 CDT, 0 docusate sodium Notes: (Same No Longer [facility] [place] as: Colace) Active 2019 Medical Center sennosides, JAIL Notes: (Same No Longer [facility] [place] 8.6 MG Oral Tablet as: Senokot) Active 2019 [facility] Ceftriaxone Notes: [facility] Active 2019 Medical WASTE Center Product Size: 2000 mg Product Wasted: ___ mg Albuterol 0.833 Notes: (Same No Longer [facility] [place] MG/ML / as: Duoneb) Active 2019 [facility] Ipratropium [place] 0.167 MG/ML Inhalant Solution [DuoNeb] chlorhexidine Notes: (Same No Longer [facility] gluconate 1.2 As: Peridex) Active 2019 Medic al MG/ML Mouthwash [place] Flagyl 500 mg, 100 No Longer [facility] mL, Route: Active 2019 Medical IVPB, Drug Center form: INJ, ABXQ8H, Dosing Weight 102.273, kg, Start date: 12/24/18 19:00:00 CDT, Duration: 7 day, Stop date: 12/31/18 6:00:00 CDT, ABX Indication: Bacteremia, 0 Vancomycin 2001 mg: No Longer [facility] infuse over Active 2019 Medical 2.5 hours For Center adult patients only: Round to nearest 250 mg per medical staff approval MEDICATION WASTE Product Size: 1000 mg Product Wasted: ___ mg Tylenol 100.4 F, No Longer [facility] Start date: Active 2019 Medical 12/24/18 [place] 18:39:00 CDT, Duration: 30 day, Stop date: 01/23/19 18:38:00 CDT, 0 Zofran Notes: No Longer [place] MEDICATION Active 2018 Medical WASTE Center Product Size: 4 mg Product Wasted: ___ mg Fentanyl 1,000 No Longer [place] microgram, 20 Active 2018 Medical mL, Rate: Center Titrate, Start Dose: 50 microgram/hr, Titration: 25 microgram/hour every 15 minutes, Goal(s): RASS 0, Max Dose: 300 microgram/hr, Route: IV, Dosing Weight 102.273 kg, Total Volume: 20, Start date: 12/24/18 18:39:00 CDT, D... Potassium Chloride Notes: (Same No Longer [place] as: KCL) 2018 Medical Infuse no Center faster than 10 mEq/hr if given peripherally. sodium phosphate Notes: Infuse No Longer [facility] over 4 hour. 2018 Medical Do not infuse Center phosphorous concurrently in the same line as TPN or IVF that contains calcium. For double lumen central lines, phosphorous may be infused in a separate lumen from TPN. potassium Notes: (Same No Longer [facility] phosphate as: K Active 2018 [facility] Phosphate.) Center Do not infuse phosphorous concurrently in the same line as TPN or IVF that contains calcium. For double lumen central lines, phosphorous may be infused in a separate lumen from TPN. 1 mMol phoshate has 1.47 mEq potassium Infuse over 4 hours potassium Notes: (Same No Longer [facility] phosphate-sodium as: Phos-NaK) 2018 edical phosphate 250 Each 1.5 gm Center mg-280 mg-160 mg pkt has 250mg oral powder for phosphorous. reconstitution Mix w/2.5oz water and stir. Magnesium Sulfate Notes: WASTE: No Longer [facility] F/P - Sink; E Active 2018 [facility] Center Trash Bin Magnesium Oxide Notes: (Same No Longer [facility] as: Mag-Ox Active 2018 [facility] 400) Magnesium Center oxide [id number] elemental magnesium Dose=____mg magnesium oxide (___mg elemental magnesium) Calcium Gluconate Notes: WASTE: No Longer [facility] F/P - Sink; E Active 2019 [facility] Trash Bin Calcium Carbonate Notes: (Same No Longer [place] 500 MG Chewable As: Tums) Active 2018 [...] 0 Glucagon 1 mg, Route: No Longer [facility] IM, Drug form: Active 2018 [facility] PDR/INJ, PRN, Center Dosing Weight 102.273, kg, PRN Blood Glucose Results, Start date: 12/24/18 18:37:00 CDT, Duration: 30 day, Stop date: 01/23/19 18:36:00 CDT, 0 chlorhexidine Notes: (Same No Longer [facility] gluconate 1.2 As: Peridex) Active 2018 Medic al MG/ML Mouthwash Center Insulin regular Notes: Roll in No Longer [place] palms of hands Active 2019 Medical gently; do not Center shake vigorously. (Same as: Humulin R) WASTE: F/P - Black; E - [facility] Trash Bin Stable for 31 days at room temperature Expires in days from Norepinephrine Notes: Not for No Longer [facility] direct Active 2019 Medical administration Center - DILUTE. Protect from light. (Same as:Levophed). Administer by either central venous catheter or peripherally-i nserted central catheter (PICC) line. Isolyte S PH 7.4 Notes: (Same No Longer [facility] 1,000 mL as: Isolyte S Active 2019 [facility] PH 7.4) Center Ibuprofen Notes: (Same Inactive [facility] as: Motrin) 2019 Medical "Do Not Crush" Center Give with food. Tylenol Notes: Max Inactive [facility] [place] acetaminophen 2019 Medical 4000 mg/day (4 Center gm/day). (Same as: Tylenol Extra Strength) Mestinon Notes: (Same Inactive [place] as: Mestinon) 2019 Medical Center Insulin Lispro Notes: (Same Inactive [facility] as: Humalog) 2019 Medical Roll in [...] as: Pepcid) Active 2019 Medical Center sennosides, JAIL Notes: (Same No Longer H [place] 8.6 MG Oral Tablet as: Senokot) Active 2019 Medical Center ropinirole Notes: (Same No Longer [place] as: Requip) Active 2019 Medical Center Ramipril Notes: (Same No Longer [place] as:Altace) Active 2019 Medical Center Prednisone Notes: Take [place] Longer [place] with food. Active 2019 Medical Center Furosemide 20 MG Notes: (Same No Longer [facility] Oral Tablet as: Lasix) Active 2019 Medical May cause GI Center upset. Give with food or milk. Amlodipine Notes: (Same No Longer [place] as as: Norvasc) Active 2019 Medical Center Docusate Sodium 50 Notes: (Same No Longer [place] MG / sennosides, as Senokot-S) Active 2018 edical [place] 8.6 MG Oral Equiv. to [place] Tablet Cassidy-Colace. Levothroid 88 mcg 88 microgram = Active [place] (0.088 mg) oral 1 tab, PO, 2019 Medic al tablet Daily, 0 Center Refill(s) rosuvastatin Notes: (Same [place] Longer [place] As: Crestor) Active 2019 [facility] Insulin Glargine 20 unit, 0.2 No Longer [place] 100 UNT/ML mL, Route: Active 2018 Medical Injectable SUB-Q, Drug Center Solution form: SOLN, Bedtime, Dosing Weight 91.818, kg, Start date: 09/21/18 21:00:00 CDT, Duration: 30 day, Stop date: 10/20/18 21:00:00 CDT Sertraline Notes: (Same No Longer [place] as: Zoloft) Active 2019 [facility] Pyridostigmine Notes: (Same No Longer [place] as: Mestinon) Active 2019 [facility] Dextrose 50% 25 gm, 50 mL, No Longer [place] Syringe Route: IVP, Active 2018 Medical Drug Form: Center INJ, Dosing Weight 91.818, kg, PRN, PRN Abnormal Lab Result, Start date: 09/21/18 18:24:00 CDT, Duration: 30 day, Stop date: 10/21/18 18:23:00 CDT Regular Insulin, Notes: (Same No Longer [place] Human 100 UNT/ML as: Humulin R) Active [...] [place] Therapy Instructions, 2019 Medical MISC, ONCALL, [place] Evaluate and Treat __3_ times per week for __4__ weeks, # 1 bag, 0 Refill(s) Physical Therapy See On Hold She[facility]on s Instructions, 2018 [facility], [place] Evaluate and Treat _3__ times per week for __4__ weeks, # 1 bag, 0 Refill(s) Ramipril Notes: (Same Inactive [place] as:Altace) 2019 [facility] Center Furosemide 20 MG 20 mg = 1 tab, On Hold [place] Oral Tablet PO, Every 2019 Medical Other Day, # Center 15 tab, 3 Refill(s) amLODIPine 10 mg 10 mg = 1 tab, On Hold [facility] oral tablet PO, Daily, # 2019 Medical 30 tab, 3 Center Refill(s) predniSONE 20 mg 60 mg = 3 tab, On Hold [facility] oral tablet PO, Daily, X 2019 Medical 30 day, # 90 Center tab, 0 Refill(s) pyridostigmine 60 60 mg = 1 tab, On Hold [place] mg oral tablet PO, Q8Hnow, # 2019 Med ical 90 tab, 3 Center Refill(s) ramipril 5 mg oral 10 mg = 2 cap, On Hold [facility] capsule PO, Daily, # 2019 Medical 60 cap, 3 Center Refill(s) sennosides, JAIL 8.6 mg = 1 [place] 8.6 MG Oral Tablet tab, PO, BID, 2019 Medical X 30 day, # 60 Center tab, 3 Refill(s) sertraline 25 mg 25 mg = 1 tab, On Hold [facility] oral tablet PO, Q24H, # 30 2019 Medic al tab, 0 Center Refill(s) insulin, isophane Notes: (Same No Longer [facility] as: Humulin N) Active 2018 Medical [...] Medical 30 cap, 1 Center Refill(s), Pharmacy: [facility]/pharmacy #[id number] metoprolol 25 mg = 1 [...] 1 Center Refill(s), Pharmacy: [id number] sennosides, JAIL 8.6 mg = 1 No Longer [place] 8.6 MG Oral Tablet tab, PO, BID, Active 2019 Medical # 60 tab, 0 Center Refill(s), Pharmacy: [id number] pyridostigmine 60 60 mg = 1 tab, No Longer 09/17 [place] mg oral tablet PO, Q8Hnow, # Active 2019 Med ical 90 tab, 1 Center Refill(s), Pharmacy: [facility]/pharmacy #[id number] predniSONE 20 mg 60 mg = 3 tab, No Longer [place] oral tablet PO, Daily, # Active 2019 Medical 30 tab, 1 Center Refill(s), Pharmacy: [facility]/pharmacy #[id number] Insulin regular Notes: (Same No Longer [facility] as: Humulin R) Active 2019 Medical Roll in palms Center of hands gently; Do not shake vigorously. WASTE: F/P - Black; E - Municipal Trash Bin Stable for 31 days at room temperature Expires in days from Date Glucagon 1 mg, Route: No Longer [place] IM, Drug form: Active 2019 Medical PDR/INJ, PRN, Center Dosing Weight 91.378, kg, PRN Blood Glucose Results, Start date: 09/17/18 18:52:00 CDT, Duration: 30 day, Stop date: 10/17/18 18:51:00 CDT Dextrose 50% in 25 gm, 50 mL, No Longer [place] Water (bolus) IV Route: IVP, Active 2019 Med ical Drug Form: Center INJ, Dosing Weight 91.378, kg, PRN, PRN Blood Glucose Results, Start date: 09/17/18 18:52:00 CDT, Duration: 30 day, Stop date: 10/17/18 18:51:00 CDT Melatonin 0.25 1 mg, Route: Inactive [place] mg/mL oral liquid PO, Dosing 2019 Med ical Weight 91.378, Center kg, Bedtime, Start date: 09/16/18 21:00:00 CDT, Duration: 30 day, Stop date: 10/15/18 21:00:00 CDT insulin, isophane Notes: (Same No Longer [place] as: Humulin N) Active 2019 Medical Roll in palms Center of hands gently; Do not shake vigorously. WASTE: F/P - Black; E - Municipal Trash Bin Stable for 31 days at room temperature Expires in days from Date Amlodipine Notes: (Same No Longer [place] as as: Norvasc) Active 2019 Medical Center melatonin 1 mg/mL 1 mg, 1 mL, Inactive H [place] oral solution Route: PO, 2019 Medical Drug Form: Center EYADQ, Dosing Weight 91.378, kg, ONCE, STAT, Start date: 09/16/18 0:53:00 CDT, Stop date: 09/16/18 0:53:00 CDT insulin, isophane Notes: (Same Inactive [facility] as: Humulin N) 2019 Medical Roll in palms Center of hands gently; Do not shake vigorously. WASTE: F/P - Black; E - Municipal Trash Bin Stable for 31 days at room temperature Expires in days from Date Insulin regular Notes: (Same Inactive [facility] as: Humulin R) 2019 Medical Roll in palms Center of hands gently; Do not shake vigorously. WASTE: F/P - Black; E - Municipal Trash Bin Stable for 31 days at room temperature Expires in days from Date Miralax Notes: No Longer [facility] Dissolve in 8 2018 Medical oz of water or Center juice. (Same as: Miralax) lansoprazole Notes: Take 1 No Longer [facility] hour before or Active 2018 Medical 2 hours after Center meal; Expires in 14 days. Shake well before use. (Same as:Prevacid) Compounded Product - formulation not commercially available insulin, isophane Notes: (Same Inactive [facility] as: Humulin N) 2019 Medical Roll in palms Center of hands gently; Do not shake vigorously. WASTE: F/P - Black; E - Municipal Trash Bin Stable for 31 days at room temperature Expires in days from Date Saline Flush 0.9% Notes: (Same No Longer [facility] as: BD Active 2019 Medical Posiflush) Center Lasix Notes: (Same Inactive [facility] as: Lasix) 2019 Medical MEDICATION Center WASTE Product Size: 40 mg Product Wasted: ___ mg docusate sodium Notes: (Same No Longer [place] 100 mg oral as: Colace) Active 2018 Medical capsule (Do Not Crush) Center sennosides, JAIL Notes: (Same No Longer [place] as: Senokot) [...] [place] UNT/MG Topical as:Mycostatin, Active 2018 Nd dical Powder Nilstat) For Center external use only. Amlodipine Notes: (Same No Longer [place] as: Norvasc) Active 2019 Medical Center Lasix Notes: (Same Inactive [place] as: Lasix) 2019 Medical MEDICATION Center WASTE Product Size: 40 mg Product Wasted: ___ mg Albuterol 0.833 Notes: (Same No Longer H [place] MG/ML / as: Duoneb) Active 2019 [facility] Ipratropium Center [place] 0.167 MG/ML Inhalant Solution [DuoNeb] Potassium Chloride Notes: (Same Inactive [place] 1.33 MEQ/ML Oral as: Potassium 2018 edical Solution Chloride) Center Sertraline Notes: (Same No Longer [place] as: Zoloft) Active 2019 [facility] Immunoglobulin G 25 gm, Route: No Longer [place] IV, Q24H, Active 2019 [facility] Dosing Weight Center 91.378, kg, Start date: 09/13/18 21:00:00 CDT, Duration: 1 day, Stop date: 09/13/18 21:00:00 CDT, Indication: Myasthenia gravis metoprolol Notes: (Same No Longer [place] as tartrate as: Lopressor) Active 2019 [facility] Gamunex-C 25 gm + Notes: WASTE: Inactive [place] empty container 1 F/P - Red; E 2019 M edical bag -Red Lot Center # ____Mfg: (Gamunex - C) "blood product derivative" iodixanol 100 mL, Route: Inactive [place] as IVP, Drug 2019 Medical Form: SOLN, [place] Dosing Weight 91.378, kg, ONCALL, STAT, Start date: 09/13/18 11:50:00 CDT, Duration: 1 doses or times, Dose = 2.2ml/kg, Max dose = 100ml -- "To be infused by Radiology Staff ONLY" Prednisone Notes: Take No Longer [place] with food. Active 2019 Medical [place] pantoprazole Notes: For IV No Longer [place] push Active 2019 [facility] reconstitute Center with 10 ml 0.9% sodium chloride and push over 2 minutes. (Same as: Protonix) chlorhexidine Notes: (Same No Longer [place] gluconate 1.2 As: Peridex) Active 2018 Medic al MG/ML [place] Norepinephrine Notes: Not for Inactive [place] direct 2019 Medical administration Center - DILUTE. Protect from light. (Same as:Levophed). Administer by either central venous catheter or peripherally-i nserted central catheter (PICC) line. propofol 10 mg/mL Notes: If No Longer [place] (Titrate.) IV Diprivan - Active 2018 Medical 1,000 mg change bottle Center & tubing every 12 hr Per state nursing law propofol can only be given by a nurse if patient is intubated or being intubated (unless the nurse is a RETORT COOLER). Same as: Diprivan Rocuronium Notes: ([facility] as: Zemeron) 2019 Medical Center Fentanyl Notes: (Same Inactive [place] as: Sublimaze) 2019 [facility] Preservative Center free. Propofol Notes: If Inactive [place] Diprivan - 2019 Medical change bottle Center & tubing every 12 hr Per state nursing law propofol can only be given by a nurse if patient is intubated or being intubated (unless the nurse is a RETORT COOLER). Same as: Diprivan ocular lubricant Notes: (Same No Longer [place] as: Active 2018 Medical Lacri-Lube, Center Puralube, Duratears Naturale, Artificial Tears, and Tears Again ) normal saline 0.9% 1,000 mL, No Longer [place] IV 1,000 mL Rate: 75 Active 2019 Medical ml/hr, Infuse Center over: 13.3 hr, Route: IV, Dosing Weight 91.378 kg, Total Volume: 1,000, Start date: 09/13/18 5:43:00 CDT, Duration: 30 day, Stop date: 10/13/18 5:42:00 CDT, 1.99, m2 chlorhexidine Notes: (Same No Longer [place] gluconate 1.2 As: Peridex) Active 2018 Medic al MG/ML [place] Insulin regular Notes: Final No Longer [place] 100 unit + Concentration Active 2019 Medical 1unit/1ml Center WASTE: F/P - Black; E - Municipal Trash Bin Dextrose 50% 6.25 gm, 12.5 No Longer [place] Syringe mL, Route: Active 2019 Medical IVP, Drug Center Form: INJ, Dosing Weight 91.378, kg, PRN, PRN Abnormal Lab Result, Start date: 09/13/18 1:52:00 CDT, Duration: 30 day, Stop date: 10/13/18 1:51:00 CDT Adult Parenteral Notes: Must No Longer [facility] Nutrition Custom - use 1.2 micron Active 2019 Medical Peripheral (PPN filter AND Cente r not TPN) 2,040 mL Lipids should not be administered to patients who are allergic to soy, fish, egg or peanuts. Immunoglobulin G 50 gm, Route: Inactive [place] IV, Q24H, 2019 Medical Dosing Weight Center 91.378, kg, Start date: 09/12/18 21:00:00 CDT, Duration: 1 day, Stop date: 09/12/18 21:00:00 CDT, Indication: Myasthenia gravis Gamunex-C 75 gm + Route: IVPB, Inactive [place] empty container 1 Drug form: 2019 Med ical bag SOLN, Bedtime, Center Start date: 09/12/18 21:00:00 CDT, Duration: 1 doses or times, Stop date: 09/12/18 21:00:00 CDT, Indication: Myasthenia gravis Gamunex-C 50 gm + Notes: WASTE: Inactive [place] empty container 1 F/P - Red; E 2019 M edical bag -Red Lot Center # ____Mfg: (Gamunex - C) Non-Formulary "blood product derivative" Pyridostigmine Notes: (Same No Longer [place] as: Mestinon) Active 2019 [facility] Calcium Carbonate Notes: (Same No Longer [place] 500 MG Chewable As: Tums) Active 2019 Medica l Tablet Calcium Center Carbonate 500 mg = 200 mg elemental calcium Dose = mg calcium carbonate ( mg elemental calcium) Calcium Gluconate Notes: WASTE: No Longer [place] F/P - Sink; E Active 2018 [facility] Trash Bin Magnesium Oxide Notes: (Same No Longer 09/12/ H [place] as: Mag-Ox Active 2018 Medical 400) Magnesium Center oxide [id number] elemental magnesium Dose=____mg magnesium oxide (___mg elemental magnesium) Magnesium Sulfate Notes: WASTE: No Longer [place] F/P - Sink; E Active 2018 [facility] Trash Bin potassium Notes: (Same [facility] Long[facility] phosphate-sodium as: K-Phos Active 2018 [facility] roger phosphate 250 Neutral, [place] mg-280 mg-160 mg Phospha 250 oral powder for Neutral) reconstitution Potassium Chloride Notes: (Same No Longer [place] as: K-Dur 20) Active 2018 [facility] "Do Not Crush" Center Give with food and full glass of water For patients unable to swallow tablet, dissolve in one half glass of water. Allow about 2 minutes for the tablets to disintegrate. Stir before giving to prepare slurry and administer. Please exclude Patient’ s with feeding tube less than 14 [place] (Dobhoff, J-tube etc) and pediatric and patients. sodium phosphate Notes: Infuse No Longer [place] over 4 hour. Active 2018 [facility] Do not infuse Center phosphorous concurrently in the same line as TPN or IVF that contains calcium. For double lumen central lines, phosphorous may be infused in a separate lumen from TPN. potassium Notes: (Same No Longer [facility] s phosphate as: K Active 2018 Medical Phosphate.) [place] Do not infuse phosphorous concurrently in the same line as TPN or IVF that contains calcium. For double lumen central lines, phosphorous may be infused in a separate lumen from TPN. 1 mMol phoshate has 1.47 mEq potassium Infuse over 4 hours benzocaine topical Notes: (Same No Longer [place] gel As: Maximum Active 2018 Medical Strength [facility] Orajel ) Immunoglobulin G 75 gm, Route: Inactive [place] IV, Drug form: 2019 Medical INJ, Q24H, [place] Dosing Weight 91.378, kg, Start date: 09/12/18 12:00:00 CDT, Duration: 1 doses or times, Stop date: 09/12/18 12:00:00 CDT, Indication: Myasthenia gravis Magnesium Sulfate Notes: WASTE: Inactive [place] F/P - Sink; E 2018 [facility] Tra Bin Calcium Gluconate Notes: WASTE: Inactive [place] F/P - Sink; E 2019 [facility] Tra Bin Pyridostigmine Notes: (Same No Longer [place] as: Mestinon) Active 2019 [facility] Bacitracin 1 appl, Route: No Longer [place] [...] extended release as: Toprol XL) Active 2019 [facility] split Center tab, but do not crush. Ramipril Notes: (Same No Longer [place] as:Altace) Active 2019 Medical Center fondaparinux Notes: (Same No Longer [place] as: Arixtra) Active 2019 Medical Center Amlodipine Notes: (Same No Longer [place] as: Norvasc) Active 2019 Medical [place] Hydrochlorothiazid Notes: (Same Inactive [place] e as: 2019 Medical Hydrodiuril) Center With food. Docusate Sodium 50 Notes: (Same No Longer [place] MG / sennosides, as Senokot-S) Active 2019 edical JAIL 8.6 MG Oral Equiv. to Center Tablet Cassidy-Colace. Furosemide 20 MG Notes: (Same No Longer [facility] Oral Tablet as: Lasix) Active 2019 Medical May cause GI Center upset. Give with food or milk. Gamunex-C 25 gm + Notes: For No Longer H [place] empty container 1 adults: use Active 2018 Nd dical bag IBW of XX used Center for XX mg/kg per protocol WASTE: F/P - Red; E -Red Lot # ____Mfg: (Gamunex - C) "blood product derivative" rosuvastatin Notes: (Same In[place] As: Crestor) 2019 Medical [place] heparin sodium, Notes: porcine Inactive [facility] porcine 2500 heparin 2019 Medical UNT/ML Injectable Center Solution Lacri-Lube Notes: (Same No Longer [place] as as: Active 2019 Medical Lacri-Lube, Center Puralube, Duratears Naturale, Artificial Tears, and Tears Again ) Pyridostigmine Notes: (Same No Longer 09/10[facility] as: Mestinon) Active 2019 Medical [place] Saline Flush 0.9% Notes: (Same No Longer 09/10[facility] as: BD Active 2019 Medical Posiflush) Center Benadryl Notes: (Same No Longer [facility] as: Benadryl) Active 2019 Medical Center Solu-Medrol Notes: (Same No Longer [facility] [place] as:Solu-MEDROL Active 2019 [facility] , A-Methapred) Center Zofran Notes: (Same No Longer [facility] as: Zofran) Active 2019 Medical MEDICATION Center WASTE Product Size: 4 mg Product Wasted: ___ mg Immunoglobulin G 36 gm, Route: Inactive [facility] IVPB, Drug 2019 Medical form: SOLN, [place] Daily, Dosing Weight 91.378, kg, Start date: 09/10/18 16:42:00 CDT, Duration: 5 day, Stop date: 09/15/18 9:00:00 CDT, Indication: Other see comments Insulin regular 60 units) No Longer [facility] WASTE: F/P - Active 2019 Medical Black; E - Center Municipal Trash Bin Stable for 28 days at room temperature Expires in days from Date Glucagon 1 mg, Route: No Longer [place] IM, Drug form: Active 2018 Medical PDR/INJ, [...] Saline Flush 0.9% Notes: (Same No Longer [place] as: BD Active 2018 [facility] Posiflush) [place] Dextrose 5% with 1,000 mL, No Longer [place] 0.9% NaCl IV 1,000 Rate: 75 Active 2019 Medi roger mL ml/hr, Infuse Center over: 13.3 hr, Route: IV, Dosing Weight 91.378 kg, Total Volume: 1,000, Start date: 09/10/18 0:20:00 CDT, Duration: 30 day, Stop date: 10/10/18 0:19:00 CDT, 1.99, m2 Streptococcus Notes: Shake No Longer [place] pneumoniae well prior to 2018 Medical serotype 1 use (Same as: [place] capsular antigen Prevnar 13) diphtheria [id number] protein conjugate vaccine / Streptococcus pneumoniae serotype 14 capsular antigen diphtheria [id number] protein conjugate vaccine / Streptococcus pneumoniae serotype 18C capsular antigen d insulin glargine Notes: (Same Inactive H as: Lanmadelynus) Do 2018 [facility] not hold [facility] insulin without contacting prescriber WASTE: F/P - Black; E - Municipal Trash Bin "single patient use only" Insulin Glargine 10 unit, On Hold 100 UNT/ML SUB-Q, 2019 [facility] Injectable Bedtime, 0 [facility] Solution Refill(s) Bacitracin 0.5 1 appl, Route: Inactive H UNT/MG Ophthalmic RIGHT EYE, 2019 [facility] orial Ointment TID, Drug [facility] form: OINT, Start date: 09/09/18 9:00:00 CDT, Duration: 30 day, Stop date: 10/08/18 17:00:00 CDT D5W 1/2NS 1,000 mL 1,000 mL, Inactive Rate: 75 2019 [facility] ml/hr, Infuse [facility] over: 13.3 hr, Route: IV, Dosing Weight 94.3 kg, Total Volume: 1,000, Start date: 09/09/18 7:53:00 CDT, Duration: 30 day, Stop date: 10/09/18 7:52:00 CDT, 2.02, m2 Acyclovir Notes: No Longer MEDICATION Active 2018 [facility] WASTE [facility] Product Size: 500 mg Product Wasted: _0__ mg 0.5 ML dulaglutide SUB-Q, every On Hold 3 MG/ML Prefilled Thursday, 2018 [place] rial Syringe Refill(s) [facility] [Trulicity] Insulin Glargine 20 unit, On Hold 100 UNT/ML SUB-Q, 2019 [facility] Injectable Bedtime, # 3 [facility] Solution mL, 3 Refill(s) heparin Notes: porcine No Longer heparin Active 2018 [facility] Dextrose 50% 12.5 gm, 25 No Longer Syringe mL, Route: Active 2018 [facility] IVP, Drug [facility] Form: INJ, Dosing Weight 94.3, kg, PRN, PRN Blood Glucose Results, Start date: 09/08/18 9:49:00 CDT, Duration: 30 day, Stop date: 10/08/18 9:48:00 CDT Glucagon 1 mg, Route: No Longer IM, Drug form: Active 2019 [facility] PDR/INJ, PRN, City Dosing Weight 94.3, kg, PRN Blood Glucose Results, Start date: 09/08/18 9:49:00 CDT, Duration: 30 day, Stop date: 10/08/18 9:48:00 CDT Furosemide 20 MG Notes: (Same No Longer [facility] Oral Tablet as: Lasix) Active 2019 Medical May cause GI Center upset. Give with food or milk. Furosemide 20 MG 40 mg, Route: Inactive [facility] Oral Tablet PO, Drug form: 2019 Medic al TAB, Daily, Center Dosing Weight 111.6, kg, Start date: 08/19/18 21:00:00 CDT, Duration: 30 day, Stop date: 09/18/18 9:00:00 CDT clopidogrel 75 mg 75 mg = 1 tab, Active [place] oral tablet PO, Daily, # 2019 Medical 90 tab, 3 Center Refill(s), Pharmacy: [facility] [id number] rosuvastatin 10 mg 20 mg = 2 tab, Active [facility] oral tablet PO, Bedtime, # 2019 Medic al 180 tab, 3 Center Refill(s) ramipril 5 mg oral 10 mg = 2 cap, Active [facility] capsule PO, Q24H, # 2019 Medical 180 cap, 3 Center Refill(s) Insulin Glargine 20 unit, Active [place] as 100 UNT/ML SUB-Q, QPM, # 2019 Medical Injectable 15 mL, 3 Center Solution Refill(s) Furosemide 20 MG 20 mg = 1 tab, Active [facility] Oral Tablet PO, Every 2019 Medical Other Day, # Center 15 tab, 0 Refill(s) amLODIPine 5 mg 5 mg = 1 tab, Active [facility] oral tablet PO, Daily, # 2019 Medical 90 tab, 3 Center Refill(s) metoprolol 25 mg = 1 tab, Active [place] as tartrate 25 mg PO, BID, # 60 2019 Med ical oral tablet tab, 0 Center Refill(s) Furosemide 20 MG Notes: (Same Inactive 08/19/ H [place] Oral Tablet as: Lasix) 2019 Medical May cause GI Center upset. Give with food or milk. Ramipril Notes: (Same Inactive [facility] as:Altace) 2019 Medical Center Hydralazine 10 [...] 21:00:00 CDT Crestor Notes: (Same No Longer [facility] As: Crestor) Active 2019 Medical Center insulin glargine Notes: Same No Longer [facility] [place] as: Lantus) Do Active 2019 [facility] Center insulin without contacting prescriber WASTE: F/P - Black; E - Municipal Trash Bin Ramipril Notes: (Same No Longer [place] as:Altace) Active 2019 Medical Center Amlodipine Notes: (Same No Longer [place] as: Norvasc) Active 2019 Medical Center loperamide Notes: Same as Inactive [place] Imodium 2019 [facility] Imodium A-D EZ 2 mg, Route: Inactive [facility] Chews CHEW, Dosing 2019 Medical Weight 111.6, Center kg, BID, PRN as needed for loose stool, Start date: 08/17/18 13:34:00 CDT, Duration: 30 day, Stop date: 09/16/18 13:33:00 CDT Plavix Notes: (Same No Longer [facility] As: Plavix) Active 2019 Medical [place] benzonatate Notes: (Same [place] Long[place] As: Tessalon Active 2019 [facility] Perles) "Do Center Not Crush" Insulin regular 60 units) No Longer [facility] WASTE: F/P - Active 2018 Medical [...] 50% in 12.5 gm, 25 No Longer [facility] Water (bolus) IV mL, Route: Active 2018 [facility] IVP, Drug Center Form: INJ, Dosing Weight 113.636, kg, PRN, PRN Blood Glucose Results, Start date: 08/17/18 2:18:00 CDT, Duration: 30 day, Stop date: 09/16/18 2:17:00 CDT Glucagon 1 mg, Route: No Longer [facility] IM, Drug form: Active 2018 [facility] PDR/INJ, PRN, Center Dosing Weight 113.636, kg, PRN Blood Glucose Results, Start date: 08/17/18 2:18:00 CDT, Duration: 30 day, Stop date: 09/16/18 2:17:00 CDT Bisacodyl Notes: ([facility] As: Dulcolax, Active 2018 [facility] Bisco-Lax) [place] Labetalol 20 mg, 4 mL, No Longer [place] alexis Route: IVP, Active 2018 Medical Drug form: [place] INJ, Q10Min, Dosing Weight 113.636, kg, PRN Hypertension, Start date: 08/16/18 23:38:00 CDT, Duration: 30 day, Stop date: 09/15/18 23:37:00 CDT iodixanol 60 mL, Route: Inactive [facility] IVP, Drug 2018 Medical Form: SOLN, [place] Dosing Weight 113.636, kg, ONCALL, STAT, Start [...] mg, 0.5 mL, IV No Longer [place] [facility] Route: IV, Active 2010 Medical Drug form: [place] INJ, Q4H, PRN Elevated BP, Start date: 03/24/11 18:14:00, Duration: 30 day, Stop date: 04/23/11 18:13:00, Systolic Blood pressure greater than 160 mmHg magnesium sulfate 2 gm, 50 mL, IVPB No Longer [place] Route: IVPB, Active 2010 Medical Drug form: [place] INJ, ONCE, Total dose = 2 gm, Start date: 03/24/11 17:59:00, Duration: 1 doses or times, Stop date: 03/24/11 17:59:00 NS 1,000 mL 1,000 mL, IV No Longer [place] Rate: 100 Active 2010 Medical ml/hr, Infuse Center over: 10 hr, Route: IV, Total Volume: 1,000, Start date: 03/24/11 17:56:00, Duration: 30 day, Stop date: 04/23/11 17:55:00 Novolin N 10 unit, 0.1 SUB-Q No Longer [place] mL, Route: Active 2010 Medical SUB-Q, Drug Center form: INJ, BID, Start date: 03/24/11 9:00:00, Duration: 30 day, Stop date: 04/22/11 17:00:00 [place] Thyroid 120 mg, 2 tab, PO No Longer [place] Route: PO, Active 2010 Medical Drug form: [place] TAB, Before Breakfast, Start date: 03/24/11 8:30:00, Duration: 30 day, Stop date: 04/23/11 7:30:00 potassium chloride 40 mEq, 2 tab, PO No Longer [place]án 03/02 [facility] Route: PO, Active 2010 Medical Drug form: [place] ERTAB, ONCE, Start date: 03/23/11 19:12:00, Stop date: 03/23/11 19:12:00 senna 8.6 mg oral 8.6 mg, 1 tab, PO No Longer [place]án 03/23 [facility] tablet Route: PO, Active 2010 Medical Drug Form: [place] TAB, Daily, Start date: 03/23/11 9:00:00, Duration: 30 day, Stop date: 04/21/11 9:00:00 diphenhydrAMINE 25 mg, 1 cap, PO No Longer [place] Route: PO, Active 2010 Medical Drug form: Center CAP, Q6H, PRN Itching, Start date: 03/23/11 7:37:00, Duration: 30 day, Stop date: 04/22/11 7:36:00 [place] Thyroid 120 mg, 0.5 PO No Longer [place] [facility] tab, Route: Active 2010 Medical PO, Drug form: Center TAB, Before Breakfast, Start date: 03/23/11 7:30:00, Duration: 30 day, Stop date: 04/21/11 7:30:00 heparin 5,000 unit, 1 SUB-Q No Longer Hernán [facility] mL, Route: Active 2010 Medical SUB-Q, Drug Center form: INJ, Q12H, Start date: 03/22/11 21:00:00, Duration: 30 day, Stop date: 04/21/11 9:00:00 Crestor 20 mg, 2 tab, PO No Longer Hernán [facility] Route: PO, Active 2010 Medical Drug form: Center TAB, Bedtime, Start date: 03/22/11 21:00:00, Duration: 30 day, Stop date: 04/20/11 21:00:00 Keppra 500 mg oral 500 mg, 1 tab, PO No Longer Hernán 03/02 [facility] tablet Route: PO, Active 2010 Medical Drug form: Center TAB, Q12H, Start date: 03/22/11 21:00:00, Duration: 30 day, Stop date: 04/21/11 9:00:00 [place] 5/325 oral 1 tab, Route: PO No Longer Hernán [facility] tablet PO, Drug Form: Active 2010 [...] Route: PO, Active 2010 Medical Drug form: [place] TAB, BID, Start date: 03/22/11 17:00:00, Duration: 30 day, Stop date: 04/21/11 9:00:00 metoprolol 12.5 mg, 1 ea, PO No Longer [place] Route: PO, Active 2010 Medical Drug form: [place] TAB, BID, Start date: 03/22/11 17:00:00, Duration: 30 day, Stop date: 04/21/11 9:00:00 docusate sodium 100 mg, 1 cap, PO No Longer Hernán [place] 100 mg oral Route: PO, Active 2010 Medical capsule Drug form: [place] CAP, BID, Start date: 03/22/11 17:00:00, Duration: [...] Route: IVP, Active 2010 Medical Drug Form: [place] INJ, PRN, PRN Blood Glucose Results, Start date: 03/22/11 16:28:00, Duration: 30 day, Stop date: 04/21/11 15:27:00 glucagon 1 mg, Route: IM No Longer Hernán Dougie IM, Drug form: Active 2010 Medical PDR/INJ, PRN, [place] PRN Blood Glucose Results, Priority: STAT, Start date: 03/22/11 16:28:00, Duration: 30 day, Stop date: 04/21/11 15:27:00 calcium carbonate 500 mg, 1 tab, PO No Longer Hernán 03/22 Dougie Route: PO, Active 2010 Medical Drug form: [place] CHEWTAB, TID, PRN as needed for indigestion, Start date: 03/22/11 16:19:00, Duration: 30 day, Stop date: 04/21/11 16:18:00 ondansetron 4 mg, 2 mL, IVP No Longer Dumont Osman as Route: IVP, Active 2010 Medical Drug form: [place] INJ, ONCE, Priority: STAT, Start date: 03/22/11 10:12:00, Stop date: 03/22/11 10:12:00 morphine Sulfate 4 mg, 1 mL, IVP No Longer Dumont 03/22[facility] Route: IVP, Active 2010 Medical Drug form: [place] INJ, ONCE, Priority: STAT, Start date: 03/22/11 10:11:00, Stop date: 03/22/11 10:11:00 magnesium oxide 400 mg, 1 tab, PO Active Marlonimileyad Doug[place] 400 mg oral tablet PO, BID, 2010 Me dical tab, Center Substitution Allowed Benadryl 25 mg, 1 cap, PO No Longer Neymar Osmana s Route: PO, Active 2010 Medical Drug form: [place] CAP, Q4H, PRN Itching, Start date: 03/15/11 6:21:00, Duration: 30 day, Stop date: 04/14/11 6:20:00 trazodone 50 mg 50 mg, 1 tab, PO No Longer Marlonimileyad Dougie oral tablet Route: PO, Active 2010 Medical Drug form: [place] TAB, Bedtime, Start date: 03/14/11 21:00:00, Duration: 30 day, Stop date: 04/12/11 21:00:00 NS 1,000 mL 1,000 mL, IV No Longer Alikhan Dougie Rate: 75 Active 2010 Medical ml/hr, Infuse [place] over: 13.3 hr, Route: IV, Total Volume: 1,000, Start date: 03/14/11 17:02:00, Duration: 30 day, Stop date: 04/13/11 17:01:00 senna 8.6 mg oral 8.6 mg, 1 tab, PO No Longer Korimilli Dougie tablet Route: PO, Active 2010 Medical Drug Form: Center TAB, Daily, Start date: 03/14/11 9:00:00, Duration: 30 day, Stop date: 04/12/11 9:00:00 metoprolol 12.5 mg, 1 ea, PO No Longer [place] Dougie Route: PO, Active 2010 Medical Drug form: Center TAB, BID, Start date: 03/14/11 9:00:00, Duration: 30 day, Stop date: 04/12/11 17:00:00 Crestor 20 mg, 2 tab, PO No Longer [place] Route: PO, Active 2010 Medical [...] N 10 unit, 0.1 SUB-Q No Longer [place] Osman as mL, Route: Active 2010 Medical [...] 500 mg, 1 tab, PO No Longer [place] 10 4/ [facility] Route: PO, Active 2010 Medical Drug form: [place] CHEWTAB, TID, Start date: 03/14/11 9:00:00, Duration: 30 day, Stop date: 04/12/11 17:00:00 heparin 5,000 unit, 1 SUB-Q [place] Longer [place] mL, Route: Active 2010 Medical SUB-Q, Drug Center form: INJ, Q8H, Start date: 03/14/11 8:00:00, Duration: 30 day, Stop date: 04/13/11 0:00:00 ciprofloxacin 750 mg, 3 tab, PO No Longer Ash [facility] Route: PO, Active 2010 Medical Drug form: [place] TAB, [id number], Start date: 03/14/11 7:00:00, Duration: 30 day, Stop date: 04/12/11 19:00:00 cefepime 2 gm, Route: IV No Longer [place] [facility], Drug form: Active 2010 Medical INJ, [id number], Center Start date: 03/14/11 7:00:00, Duration: 30 day, Stop date: 04/12/11 23:00:00 Amelia Thyroid 120 mg, 2 tab, PO No Longer [place] [facility] Route: PO, Active 2010 Medical Drug form: [place] TAB, [id number], Start date: 03/14/11 6:45:00, Duration: 30 day, Stop date: 04/13/11 6:30:00 glucagon 1 mg, Route: IM [place] Longer [place] IM, Drug form: Active 2010 Medical PDR/INJ, PRN, Center PRN Blood Glucose Results, Priority: STAT, Start date: 03/14/11 6:06:00, Duration: 30 day, Stop date: 04/13/11 5:05:00 Dextrose 50% 25 gm, 50 mL, IVP No Longer Ash [facility] Syringe Route: IVP, Active 2010 Medical Drug Form: Center INJ, PRN, PRN Blood Glucose Results, Start date: 03/14/11 6:06:00, Duration: 30 day, Stop date: 04/13/11 5:05:00 insulin aspart 4 unit, 0.04 SUB-Q No Longer [place] [facility] [place] mL, Route: Active 2010 Medical SUB-Q, Drug Center form: SOLN, TID-Before Meals, PRN Blood Glucose Results, Start date: 03/14/11 6:06:00, Duration: 30 day, Stop date: 04/13/11 6:05:00 [place] 5/325 oral 1 tab, Route: PO No Longer Ash [facility] tablet PO, Drug Form: Active 2010 Medical TAB, Q4H, PRN Center as needed for pain, Start date: 03/14/11 6:02:00, Duration: 30 day, Stop date: 04/13/11 6:01:00 magnesium sulfate 2 gm, 50 mL, IVPB No Longer [place] Route: IVPB, Active 2010 Medical Drug form: Center INJ, ONCE, Total dose = 2 gm, Start date: 03/14/11 6:01:00, Duration: 1 doses or times, Stop date: 03/14/11 6:01:00 Sodium Chloride 1,000 mL, IV No Longer [place] 0.9% (Bolus) IV Rate: 1,000 Active 2010 [facility] 1,000 mL ml/hr, Infuse Center over: 1 hr, Route: IV, Total Volume: 1,000, Bolus Dose, Priority: STAT, Start date: 03/14/11 4:12:00, Duration: 1 doses or times, Stop date: 03/14/11 5:11:00 Maxipime 2 gm, Route: IVPB No Longer Burden [facility] IVPB, Drug Active 2010 Medical form: [...] 0.9% (Bolus) IV Rate: 1,000 Active 2010 [facility] roger 1,000 mL ml/hr, Infuse [place] over: 1 hr, Route: IV, Total Volume: 1,000, Bolus Dose, Priority: STAT, Start date: 03/13/11 23:20:00, Duration: 1 doses or times, Stop date: 03/14/11 0:19:00 morphine Sulfate 4 mg, 1 mL, IVP No Longer Daftary [facility] Route: IVP, Active 2010 Medical Drug form: [place] INJ, ONCE, Priority: STAT, Start date: 03/13/11 22:47:00, Stop date: 03/13/11 22:47:00 Lasix Substitution No Longer [place] Allowed Active 2010 [facility] metFORmin Substitution [place] Allowed Active 2010 [facility] metoprolol 12.5 mg, 1 ea, PO No Longer [place] Route: PO, Active 2010 Medical Drug form: [place] TAB, BID, Start date: 03/06/11 20:00:00, Duration: 30 day, Stop date: 04/05/11 8:00:00 metoprolol 25 mg 12.5 mg, 0.5 PO Active Rizvi Dougie oral tablet ea, PO, BID, 2010 Medical 60 tab, Center Substitution Allowed, TAB trazodone 50 mg 50 mg, 1 tab, PO Active Rizvi [place] oral tablet PO, Bedtime, 2010 Medical 40 tab, Center Substitution Allowed, TAB [place] 5/325 oral 1 tab, PO, PO Active [place]vi [place] tablet Q4H, PRN, 40 2010 Medical tab, Pain, Center Substitution Allowed, Maintenance, TAB Novolin N 100 10 unit, SUB-Q Active Rizvi Dougie units/mL SUB-Q, BID, 10 2010 Medical subcutaneous ml, [place] injection Substitution Allowed, SUSP Amelia Thyroid 60 120 mg, 2 tab, PO Active Rizvi [place] mg oral tablet PO, Before 2010 Medica l Breakfast, 60 [place] tab, Substitution Allowed, TAB Keppra 500 mg [...] sodium 100 mg, 1 cap, PO Active [place] [facility] [place] 100 mg oral PO, BID, 30 2010 Medical capsule cap, Center Substitution Allowed, CAP ciprofloxacin 250 750 mg, 3 tab, PO Active [facility] [place] mg oral tablet PO, Q12H, 40 2010 Medi roger doses or Center times, Substitution Allowed, TAB Maxipime 2 g 2 gm, IV, Q8H, IV Active [place] injection 60 doses or 2010 Medical times, Center Substitution Allowed calcium carbonate 500 mg, 1 tab, PO Active [place] 500 mg oral PO, TID, PRN, 2010 Medica l tablet, chewable 30 tab, as Cent er needed for indigestion, Substitution Allowed, CHEWTAB Lasix 10 mg, 0.5 PO No Longer Aaron [facility] tab, Route: Active 2010 Medical PO, Drug form: [place] TAB, Daily, Start date: 03/06/11 8:00:00, Duration: 30 day, Stop date: 04/04/11 8:00:00 Norvasc 5 mg, Route: PO No Longer Crowe [facility] PO, Daily, Active 2010 Medical Start date: [place] 03/02/11 8:00:00, Duration: 30 day, Stop date: 03/31/11 8:00:00 trazodone 50 mg 50 mg, 1 tab, PO No Longer Zeider [facility] oral tablet Route: PO, Active 2010 Medical Drug form: [place] TAB, Bedtime, Start date: 02/27/11 21:00:00, Duration: 30 day, Stop date: 03/28/11 21:00:00 calcium carbonate 500 mg, 1 tab, PO No Longer Zeider 02/27 [facility] Route: PO, Active 2010 Medical Drug form: [place] TAB, TID, Start date: 02/27/11 8:00:00, Duration: 7 day, Stop date: 03/05/11 17:00:00 senna 8.6 mg, 1 tab, PO No Longer [place] Route: PO, Active 2010 Medical Drug Form: Center TAB, Daily, Start date: 02/27/11 8:00:00, Duration: 30 day, Stop date: 03/28/11 8:00:00 Lasix 40 mg oral 20 mg, 0.5 PO No Longer Rizvi [facility] tablet tab, Route: Active 2010 Medical PO, Drug form: Center TAB, Daily, Start date: 02/27/11 8:00:00, Stop date: 03/28/11 8:00:00 Amelia Thyroid 120 mg, 2 tab, PO No Longer Zeider [facility] Route: PO, Active 2010 Medical Drug form: Center TAB, Before Breakfast, Start date: 02/27/11 6:30:00, Duration: 30 day, Stop date: 03/28/11 6:30:00 Insulin regular 5 unit, 0.05 SUB-Q No Longer Crowe [facility] [place] mL, Route: Active 2010 Medical SUB-Q, Drug Center form: SOLN, TID-Before Meals, Start date: 02/27/11 6:30:00, Stop date: 03/28/11 16:30:00 heparin 5000 5,000 unit, 1 SUB-Q No Longer Zeider [facility] units/mL mL, Route: Active 2010 Medical injectable SUB-Q, Drug Center solution form: INJ, Q8H, Start date: 02/27/11 0:00:00, Duration: 30 day, Stop date: 03/28/11 16:00:00 hydrALAZINE 25 mg 25 mg, 1 tab, PO No Longer Crowe [facility] oral tablet Route: PO, Active 2010 Medical Drug form: Center TAB, Q8H, Start date: 02/27/11 0:00:00, Duration: 30 day, Stop date: 03/28/11 16:00:00 ciprofloxacin 750 mg, 3 tab, PO No Longer Zeider [facility] [place] Route: PO, Active 2010 Medical Drug form: Center TAB, Q12H, Priority: Routine, Start date: 02/26/11 23:00:00, Duration: 30 day, Stop date: 03/28/11 11:00:00 Crestor 20 mg, 2 tab, PO No Longer Zeider [facility] Route: PO, Active 2010 Medical Drug form: Center TAB, Daily, Start date: 02/26/11 21:00:00, Duration: 30 day, Stop date: 03/27/11 21:00:00 levetiracetam 500 mg, 1 tab, PO No Longer Zeider [facility] [place] [place] Route: PO, Active 2010 Medical Drug form: [place] TAB, Q12H, Start date: 02/26/11 21:00:00, Duration: 30 day, Stop date: 03/28/11 9:00:00 magnesium oxide 400 mg, 1 tab, PO No Longer Zeider [facility] Route: PO, Active 2010 Medical Drug form: Center TAB, BID, Start date: 02/26/11 20:00:00, Duration: 5 day, Stop date: 03/03/11 8:00:00 insulin 10 unit, 0.1 SUB-Q No Longer Zeider [facility] isophane-NPH mL, Route: Active 2010 Medical SUB-Q, Drug Center form: INJ, BID, Start date: 02/26/11 20:00:00, Duration: 30 day, Stop date: 03/28/11 8:00:00 docusate sodium 100 mg, 1 cap, PO No Longer Zeider [facility] 100 mg oral Route: PO, Active 2010 Medical capsule Drug form: [place] CAP, BID, Start date: 02/26/11 20:00:00, Duration: 30 day, Stop date: 03/28/11 8:00:00 Prinivil 20 mg, 1 tab, PO No Longer Crowe [place] Route: PO, Active 2010 Medical Drug form: Center TAB, BID, Start date: 02/26/11 20:00:00, Stop date: 03/28/11 8:00:00 cefepime 2 gm, Route: IVPB No Longer Zeider [facility] IVPB, Drug Active 2010 Medical form: INJ, Center [id number], Start date: 02/26/11 18:00:00, Duration: 30 day, Stop date: 03/28/11 10:00:00 ondansetron 4 mg, 2 mL, IVP No Longer Zeider Osman as Route: IVP, Active 2010 Medical Drug form: [place] INJ, ONCE, PRN Nausea & Vomiting, Start date: 02/26/11 17:39:00 Saline Flush 0.9% 5 ml, Route: IVP No Longer Zeider [place] IVP, Drug Active 2010 Medical Form: INJ, Center PRN, PRN Line Flush, Start date: 02/26/11 17:39:00, Duration: 30 day, Stop date: 03/28/11 17:38:00 calcium carbonate 500 mg, 1 tab, CHEW No Longer Zeider 02/26 [place] Route: CHEW, Active 2010 Medical Drug form: [place] CHEWTAB, TID, PRN Indigestion, Start date: 02/26/11 17:39:00, Duration: 30 day, Stop date: 03/28/11 17:38:00 [place] 5/325 oral 1 tab, Route: PO No Longer Zeider [facility] tablet PO, Drug Form: Active 2010 Medical TAB, Q4H, PRN Center Pain, Start date: 02/26/11 17:39:00, Duration: 30 day, Stop date: 03/28/11 17:38:00 acetaminophen 650 mg, 20.3 PO No Longer Zeider [place] mL, Route: PO, Active 2010 Medical Drug form: [place] LIQ, Q4H, PRN Fever, Start date: 02/26/11 17:39:00, Duration: 30 day, Stop date: 03/28/11 17:38:00 [place] 7.5/325 oral 1 tab, Route: PO No Longer Zeider 02/26 [facility] tablet PO, Drug Form: Active 2010 Medical TAB, Q4H, PRN Center Pain, Start date: 02/26/11 17:39:00, Duration: 30 day, Stop date: 03/28/11 17:38:00 Insulin regular 2 unit, 0.02 SUB-Q No Longer Zeider [place] mL, Route: Active 2010 Medical SUB-Q, Drug Center form: SOLN, TID-Before Meals, PRN Blood Glucose Results, Start date: 02/26/11 17:39:00, Duration: 30 day, Stop date: 03/28/11 17:38:00 Amelia Thyroid 60 120 mg, 2 tab, PO [...] mg 25 mg, 1 tab, PO Active [place]alou [place] oral tablet PO, Q8H, 30 2010 Medical tab, Center Substitution Allowed, TAB heparin 5000 5000 units, SUB-Q [place] units/mL SUB-Q, Q8H, 30 2010 Medical injectable doses or Center solution times, Substitution Allowed, SOLN Lasix 40 mg oral 40 mg, 1 tab, PO Active Christianson 02/26/ M [facility] [place] tablet PO, Daily, 2010 Medical tab, Center Substitution Allowed, TAB docusate sodium 100 mg, 1 cap, PO Active Idalou 02/26/ M [facility] [place] 100 mg oral PO, BID, 30 2010 Medical capsule cap, Center Substitution Allowed, CAP ciprofloxacin 250 750 mg, 3 tab, PO Active Idalou 02/26/ [place] mg oral tablet PO, Q12H, 30 2010 Medi roger doses or Center times, Substitution Allowed, TAB Maxipime 2 g 2 gm, IV, Q8H, IV Active [place] injection 1 doses or 2010 Medical times, Center Substitution Allowed calcium carbonate 500 mg, 1 tab, PO Active Christianson [place] 500 mg oral PO, TID, 2010 Medical tablet, chewable tab, Center Substitution Allowed, CHEWTAB [place] Enema 133 ml, Route: HI No Longer Joel [facility] HI, Drug Form: Active 2010 Medical JEANNIE, ONCE, Center Start date: 02/24/11 14:38:00, Stop date: 02/24/11 14:38:00 bisacodyl 10 mg, 1 supp, [place] Longer [place] Route: [place], Active 2010 Medical Drug form: Center SUPP, ONCE, Start date: 02/24/11 14:38:00, Stop date: 02/24/11 14:38:00 magnesium citrate 300 ml, Route: PO No Longer Aicha 02/24 [facility] PO, Drug Form: Active 2010 Medical LIQ, ONCE, Center Start date: 02/24/11 13:03:00, Stop date: 02/24/11 13:03:00 calcium carbonate 500 mg, 1 tab, PO No Longer Aaron 02/24 [facility] Route: PO, Active 2010 Medical Drug [...] 0.03 SUB-Q No Longer [facility] [place] mL, Route: Active 2010 Medical SUB-Q, Drug Center form: SOLN, TID-Before Meals, Start date: 02/23/11 16:30:00, Duration: 30 day, Stop date: 03/25/11 11:30:00 ciprofloxacin 750 mg, 3 tab, PO No Longer Aaron [facility] [place] Route: PO, Active 2010 Medical Drug form: Center TAB, Q12H, Priority: Routine, Start date: 02/23/11 13:00:00, Duration: 30 day, Stop date: 03/25/11 11:00:00 insulin 10 unit, 0.1 SUB-Q No Longer Aaron [facility] isophane-NPH mL, Route: Active 2010 Medical SUB-Q, Drug Center form: INJ, BID, Start date: 02/21/11 17:00:00, Stop date: 03/23/11 9:00:00 magnesium oxide 400 mg, 1 tab, PO No Longer Aaron [facility] Route: PO, Active 2010 Medical Drug form: Center TAB, BID, Start date: 02/21/11 17:00:00, Duration: 5 day, Stop date: 02/26/11 9:00:00 calcium carbonate 500 mg, 1 tab, CHEW No Longer Aaron 02/21 [facility] Route: CHEW, Active 2010 Medical Drug form: Center CHEWTAB, TID, PRN Indigestion, Start date: 02/21/11 14:26:00, Duration: 30 day, Stop date: 03/23/11 14:25:00 cefepime 2 gm, Route: IVPB No Longer Christianson [facility] IVPB, Drug Active 2010 Medical form: INJ, Center [id number], Start date: 02/20/11 18:00:00, Stop date: 03/22/11 10:00:00 Lasix 40 mg oral 40 mg, 1 tab, PO No Longer Aaron [facility] tablet Route: PO, Active 2010 Medical Drug form: Center TAB, Daily, Start date: 02/20/11 17:00:00, Stop date: 03/22/11 9:00:00 heparin 5000 5,000 unit, 1 SUB-Q No Longer Salazar [facility] units/mL mL, Route: Active 2010 Medical injectable SUB-Q, Drug Center solution form: INJ, Q8H, Start date: 02/20/11 16:00:00, Duration: 30 day, Stop date: 03/22/11 8:00:00 [place] 7.5/325 oral 1 tab, Route: PO No Longer Salazar 02/20 [facility] tablet PO, Drug Form: Active 2010 Medical TAB, Q4H, PRN Center Pain, Start date: 02/20/11 11:07:00, Duration: 30 day, Stop date: 03/22/11 11:06:00 Crestor 20 mg, 2 tab, PO No Longer White [facility] Route: PO, Active 2010 Medical Drug form: Center TAB, Daily, Start date: 02/20/11 9:00:00, Duration: 30 day, Stop date: 03/21/11 9:00:00 senna 8.6 mg, 1 tab, PO No Longer White [place] s Route: PO, Active 2010 Medical Drug Form: [place] TAB, Daily, Start date: 02/20/11 9:00:00, Duration: 30 day, Stop date: 03/21/11 9:00:00 Amelia Thyroid 120 mg, 2 tab, PO No Longer Christopher [facility] Route: PO, Active 2010 Medical Drug form: [place] TAB, Before Breakfast, Start date: 02/20/11 7:30:00, Duration: 30 day, Stop date: 03/21/11 7:30:00 vancomycin 1 gm, Route: IVPB No Longer Christianson Osman as IVPB, Drug Active 2010 Medical form: INJ, [place] [id number], Priority: NOW, Start date: 02/20/11 6:44:00, Duration: 30 day, Stop date: 03/21/11 22:44:00 magnesium sulfate 2 gm, 50 mL, IVPB No Longer Day [facility] Route: IVPB, Active 2010 Medical Drug form: [place] INJ, Q2H, Start date: 02/20/11 5:00:00, Duration: 2 doses or times, Stop date: 02/20/11 7:00:00 potassium chloride 20 mEq, 100 IVPB No Longer Day [facility] mL, Route: Active 2010 Medical IVPB, Q2H, Center Start date: 02/20/11 4:00:00, Duration: 2 doses or times, Stop date: 02/20/11 6:00:00 magnesium sulfate 4 gm, 100 mL, IVPB No Longer Day [facility] Route: IVPB, Active 2010 Medical Drug form: [place] INJ, ONCE, Start date: 02/20/11 4:00:00, Stop date: 02/20/11 4:00:00 labetalol 5 mg, 1 mL, IV No Longer [facility] Route: IV, Active 2010 Medical Drug form: [place] INJ, Q10Min, PRN Hypertension, Start date: 02/20/11 1:56:00, Duration: 30 day, Stop date: 03/22/11 1:55:00 NS 500 mL 500 mL, Rate: IV No Longer [facility] [place] as 1,000 ml/hr, Active 2010 Medical Infuse over: [place] 0.5 hr, Route: IV, Total Volume: 500, Start date: 02/19/11 22:07:00, Duration: 1 doses or times, Stop date: 02/19/11 22:36:00, Bolus DoseBolus Dose calcium chloride 1,000 mg, 10 IV No Longer [facility] mL, Route: IV, Active 2010 Medical Drug form: [place] INJ, ONCE, Start date: 02/19/11 21:18:00, Stop date: 02/19/11 21:18:00 Tylenol 650 mg, 2 tab, PO No Longer Salazar Sheldon s Route: PO, Active 2010 Medical Drug form: [place] TAB, Q4H, PRN Fever, Start date: 02/19/11 21:13:00, Duration: 30 day, Stop date: 03/21/11 21:12:00 levetiracetam 500 mg, 1 tab, PO No Longer W[place]ley [facility] Route: PO, Active 2010 Medical Drug form: [place] TAB, Q12H, Start date: 02/19/11 21:00:00, Duration: 30 day, Stop date: 03/21/11 9:00:00 acetaminophen 650 mg, 20.3 PO No Longer [facility] Dougie mL, Route: PO, Active 2010 Medical Drug form: [place] LIQ, Q4H, PRN Fever, Start date: 02/19/11 [...] PO, Active 2010 Medical capsule Drug form: [place] CAP, BID, Start date: 02/19/11 17:00:00, Duration: 30 day, Stop date: 03/21/11 9:00:00 [place] 5/325 oral 1 tab, Route: PO No Longer White Dougie tablet PO, Drug Form: Active 2010 Medical TAB, Q4H, PRN [place] Pain, Start date: 02/19/11 16:14:00, Duration: 30 day, Stop date: 03/21/11 16:13:00 ciprofloxacin 400 mg, 200 IVPB No Longer [place] mL, Route: Active 2010 Medical IVPB, Drug Center form: INJ, [id number], Priority: NOW, Start date: 02/19/11 16:10:00, Duration: [...] regular 7 unit, 0.07 SUB-Q No Longer Wadley [facility] [place] [place] human recombinant mL, Route: Active 2010 Med ical 100 units/mL SUB-Q, Drug Center injectable form: SOLN, solution PRN, PRN Abnormal Lab Result, Start date: 02/19/11 15:51:00, Duration: 30 day, Stop date: 03/21/11 15:50:00 Dextrose 50% 6.25 gm, 12.5 IVP No Longer Wadley [facility] Syringe mL, Route: Active 2010 [facility] IVP, Drug Center Form: INJ, PRN, PRN Abnormal Lab Result, Start date: 02/19/11 15:51:00, Duration: 30 day, Stop date: 03/21/11 15:50:00 Saline Flush 0.9% 5 ml, Route: IVP No Longer Wadley [facility] IVP, Drug Active 2010 Medical Form: INJ, Center PRN, PRN Line Flush, Start date: 02/19/11 15:51:00, Duration: 30 day, Stop date: 03/21/11 15:50:00 morphine Sulfate 2 mg, 1 mL, IVP No Longer Wadley [facility] [place] [place] Route: IVP, Active 2010 Medical Drug form: Center INJ, Q1H, PRN Pain Score 7-10, Start date: 02/19/11 15:51:00, Duration: 30 day, Stop date: 03/21/11 15:50:00 flumazenil 0.2 mg, 2 mL, IVP No Longer [place] Route: IVP, Active 2010 Medical Drug form: Center INJ, PRN, PRN Other -See Comment, Initial dose, Start date: 02/19/11 14:18:00, Duration: 30 day, Stop date: 03/21/11 14:17:00 naloxone 0.04 mg, 0.1 IVP No Longer [place] mL, Route: Active 2010 Medical IVP, [...] mg, 1 mL, IVP No Longer Herman [facility] Route: IVP, Active 2010 Medical Drug form: Center INJ, Q5Min, PRN Elevated BP, Start date: 02/19/11 14:18:00, Duration: 5 doses or times, Stop date: 02/20/11 0:00:00 vancomycin 1 gm, Route: IVPB No Longer Rizvi Osman as IVPB, Drug Active 2010 Medical form: INJ, Center [id number], Start date: 02/19/11 14:00:00, Duration: 30 day, Stop date: 03/21/11 2:00:00 ondansetron 2 4 mg, 2 mL, IVP Active [facility] Osman as mg/mL injectable IVP, Q8H, PRN, 2010 Medical solution 30 mL, Nausea Center & Vomiting, Substitution Allowed, SOLN Milk of Magnesia 1.2 gm, 5 mL, PO Active [place] [facility] [place] [place] 24% oral PO, Daily, 2010 Medical concentrate PRN, 150 mL, Center Constipation, Substitution Allowed, Maintenance, CONC Prinivil 10 mg 10 mg, 1 tab, PO Active Zeider [facility] oral tablet PO, QPM, 30 2010 Medical tab, Center Substitution Allowed, TAB Keppra 500 mg oral 500 mg, 1 tab, PO Active Zeabingdon [facility] tablet PO, Q12H, 60 2010 Medical tab, Center Substitution Allowed, TAB Humulin N Pen 100 10 unit, SUB-Q Active [place] units/mL SUB-Q, BID, 3 2010 Medical subcutaneous ml, Center injection Substitution Allowed, SUSP Humulin N Pen 100 10 unit, SUB-Q Active [facility] [place] units/mL SUB-Q, BID, 3 2010 Medical subcutaneous ml, Center injection Substitution Allowed, SUSP hydrALAZINE 25 mg 25 mg, 1 tab, PO Active [facility] [place] oral tablet PO, BID, 60 2010 Medical tab, Center Substitution Allowed, TAB bisacodyl 10 mg 10 mg, 1 supp, HI Active [facility] [place] rectal suppository HI, Bedtime, 2010 Medical PRN, 30 supp, Center Constipation, Substitution Allowed, SUPP [place] 5/325 oral 1 tab, PO, PO Active [facility] [place] tablet Q4H, PRN, 30 2010 Medical tab, as needed Center for pain, Substitution Allowed, Maintenance, TAB [place] Thyroid 120 120 mg, 1 tab, PO Active [facility] [place] mg oral tablet PO, Daily, 30 2010 Med ical tab, Center Substitution Allowed, TAB Crestor 20 mg oral 20 mg, 1 tab, PO Active [facility] [place] tablet PO, Daily, 30 2010 Medical tab, Center Substitution Allowed, TAB metFORmin 500 mg 500 mg, 1 tab, PO Active [facility] oral tablet PO, Q8H, 90 2010 Medical tab, Center Substitution Allowed, TAB normal saline 0.9% 1,000 mL, IV No Longer Christianson [facility] IV 1,000 mL Rate: 100 Active 2010 Medical ml/hr, Infuse [place] over: 10 hr, Route: IV, Total Volume: 1,000, Start date: 02/18/11 11:29:00, Duration: 30 day, Stop date: 03/20/11 11:28:00 potassium 25 mEq, No Longer [place] bicarbonate 25 mEq Substitution Active 2010 Medical oral tablet, Allowed Center effervescent potassium chloride 40 mEq, 30 mL, PO No Longer Alikhan 01/30 [facility] Route: PO, Active 2010 Medical Drug form: [place] LIQ, Daily, Start date: 02/12/11 11:00:00, Duration: 30 day, Stop date: 03/14/11 8:00:00 Kayexalate 15 gm, 60 mL, PO [place] Long[place] Route: PO, Active 2010 Medical Drug form: [place] SUSP, ONCE, Start date: 02/11/11 21:17:00, Stop date: 02/11/11 21:17:00 Kayexalate 30 gm, 120 mL, PO No Longer [place] Route: PO, Active 2010 Medical Drug form: [place] SUSP, ONCE, Start date: 02/11/11 17:22:00, Stop date: 02/11/11 17:22:00 NS (Bolus) IV 1,000 mL, IV No Longer [place] Osman as 1,000 mL Rate: 1,000 Active 2010 Medical ml/hr, Infuse [place] over: 1 hr, Route: IV, Total Volume: 1,000, Priority: STAT, Start date: 02/11/11 8:37:00, Duration: 1 doses or times, Stop date: 02/11/11 9:36:00, Bolus DoseBolus Dose dexamethasone 1 mg, 1 tab, PO No Longer Zeider [facility] Route: PO, Active 2010 Medical Drug form: [place] TAB, Daily, Start date: 02/11/11 8:00:00, Duration: 2 day, Stop date: 02/12/11 8:00:00 Fleet Enema 133 ml, Route: HI No Longer He[place] [facility] HI, Drug Form: Active 2010 Medical JEANNIE, ONCE, Center Start date: 02/10/11 14:15:00, Stop date: 02/10/11 14:15:00 bisacodyl 10 mg, 1 supp, [place] Longer [place] Route: [place], Active 2010 Medical Drug form: [place] SUPP, ONCE, Start date: 02/10/11 14:15:00, Stop date: 02/10/11 14:15:00 dexamethasone 1 mg, 1 tab, PO No Longer Zeider [facility] Route: PO, Active 2010 Medical Drug form: [place] TAB, BID, Start date: 02/09/11 8:00:00, Duration: 2 day, Stop date: 02/10/11 20:00:00 Xylocaine Jelly 2% 1 appl, Route: TOP No Longer Allam 01/30 [facility] topical gel with TOP, Q6H, Drug Active 2010 Medical applicator form: GEL PRN [place] Pain, Start date: 02/08/11 16:04:00, Duration: 30 day, Stop date: 03/10/11 16:03:00 dexamethasone 1 mg, 1 tab, PO No Longer [place] [facility] Route: PO, Active 2010 Medical Drug form: Center TAB, TID, Start date: 02/07/11 8:00:00, Duration: 2 day, Stop date: 02/08/11 17:00:00 Prinivil 10 mg, 1 tab, PO No Longer [place] Route: PO, Active 2010 Medical Drug form: Center TAB, QPM, Start date: 02/06/11 17:00:00, Duration: 30 day, Stop date: 03/07/11 17:00:00 dexamethasone 2 mg, 1 tab, [facility] Route: PO, Active 2010 Medical Drug form: Center TAB, TID, Start date: 02/05/11 8:00:00, Duration: 2 day, Stop date: 02/06/11 17:00:00 lisinopril 10 mg, 1 tab, PO [place] Long[place] Route: PO, Active 2010 Medical Drug form: Center TAB, QPM, Start date: 02/04/11 8:00:00, Duration: 30 day, Stop date: 03/05/11 17:00:00 insulin 8 unit, 0.08 SUB-Q No Longer Alikhan [facility] isophane-NPH mL, Route: Active 2010 Medical SUB-Q, Drug Center form: INJ, Before Breakfast, Start date: 02/04/11 6:30:00, Stop date: 03/05/11 6:30:00 insulin 8 unit, 0.08 SUB-Q No Longer Alikhan [facility] isophane-NPH mL, Route: Active 2010 Medical [...] mg, 1.5 tab, PO No Longer [place] [facility] [place] Route: PO, Active 2010 Medical Drug form: Center TAB, TID, Start date: 02/03/11 8:00:00, Duration: 2 day, Stop date: 02/04/11 17:00:00 insulin 15 unit, 0.15 SUB-Q No Longer Ash [facility] s isophane-NPH mL, Route: Active 2010 Medical SUB-Q, Drug Center form: INJ, Q24H, Start date: 02/03/11 0:00:00, Duration: 30 day, Stop date: 03/04/11 0:00:00 Keppra 500 mg, 1 tab, PO No Longer [place] [facility] Route: PO, Active 2010 Medical Drug form: Center TAB, Q12H, Start date: 02/02/11 21:00:00, Duration: 30 day, Stop date: 03/04/11 9:00:00 hydrALAZINE 25 mg 25 mg, 1 tab, PO No Longer Ash 02/01 [facility] oral tablet Route: PO, Active 2010 Medical Drug form: Center TAB, BID, Start date: 02/01/11 17:00:00, Stop date: 03/03/11 8:00:00 heparin 5,000 unit, 1 SUB-Q No Longer Rizvi [facility] mL, Route: Active 2010 Medical SUB-Q, Drug Center form: INJ, Q8H, Start date: 02/01/11 16:00:00, Duration: 30 day, Stop date: 03/03/11 8:00:00 Kayexalate 15 gm, 60 mL, PO No Longer [place] Route: PO, Active 2010 Medical [...] mg, 2 tab, PO No Longer Zeider [facility] Route: PO, Active 2010 Medical Drug form: [place] TAB, Daily, Start date: 02/01/11 9:00:00, Duration: 30 day, Stop date: 03/02/11 9:00:00 Lasix 40 mg oral 80 mg, 2 tab, PO No Longer Dean [facility] tablet Route: PO, Active 2010 Medical Drug form: [place] TAB, Daily, Start date: 02/01/11 9:00:00, Duration: 30 day, Stop date: 03/02/11 9:00:00 atenolol 50 mg 50 mg, 1 tab, PO No Longer Ash [facility] oral tablet Route: PO, Active 2010 Medical Drug form: [place] TAB, Daily, Start date: 02/01/11 9:00:00, Duration: 30 day, Stop date: 03/02/11 9:00:00 Am[place] Thyroid 120 mg, 2 tab, PO No Longer Zeider [facility] Route: PO, Active 2010 Medical Drug form: Center TAB, Daily, Start date: 02/01/11 9:00:00, Duration: 30 day, Stop date: 03/02/11 9:00:00 dexamethasone 4 mg, 1 tab, PO No Longer Zeider [facility] Route: PO, Active 2010 Medical Drug form: [place] TAB, Q8H, Start date: 02/01/11 0:00:00, Duration: 2 day, Stop date: 02/02/11 16:00:00 Humulin N 20 unit, 0.2 SUB-Q No Longer Ash [place] mL, Route: Active 2010 Medical SUB-Q, Drug Center form: INJ, BID, Start date: 02/01/11 0:00:00, Stop date: 03/02/11 16:00:00 Keppra 100 mg/mL 500 mg, 5 mL, [place] No Longer Zeider [place] oral solution Route: [place], Active 2010 Medical Drug form: Center SOLN, Q12H, Start date: 01/31/11 21:00:00, Duration: 30 day, Stop date: 03/02/11 9:00:00 Insulin regular 1 unit, 0.01 SUB-Q No Longer Nur [facility] mL, Route: Active 2010 Medical SUB-Q, Drug Center form: SOLN, TID-Before Meals, PRN Blood Glucose Results, Start date: 01/31/11 17:22:00, Duration: 30 day, Stop date: 03/02/11 17:21:00 Milk of Magnesia 30 mL, Route: PO No Longer Nur [facility] PO, Drug Form: Active 2010 Medical SUSP, Daily, Center PRN Constipation, Start date: 01/31/11 17:22:00, Duration: 30 day, Stop date: 03/02/11 17:21:00 bisacodyl 10 mg, 1 supp, [place] Route: HI, Active 2010 Medical Drug form: Center SUPP, [...] 3 mL, Route: IVP No Longer Nur [facility] IVP, Drug Active 2010 Medical Form: INJ, Center Q8H, PRN Line Flush, Start date: 01/31/11 17:22:00, Duration: 30 day, Stop date: 03/02/11 17:21:00, Administer at least once every 8 hoursAdministe r at least once every 8 hours [place] Route: SUB-Q, SUB-Q No Longer [facility] Drug form: Active 2010 Medical INJ, BID, Center Start date: 01/31/11 17:00:00, Duration: 30 day, Stop date: 03/02/11 9:00:00 metFORmin 500 mg 500 mg, 1 tab, PO No Longer ider [facility] oral tablet Route: PO, Active 2010 Medical Drug form: Center TAB, Q8H, Start date: 01/31/11 16:00:00, Duration: 30 day, Stop date: 03/02/11 8:00:00 [place] 5/325 oral 1 tab, Route: PO No Longer [facility] tablet PO, Drug Form: Active 2010 Medical TAB, Q4H, PRN Center as needed for pain, Start date: 01/31/11 14:56:00, Duration: 30 day, Stop date: 03/02/11 14:55:00 bisacodyl 10 mg, Route: HI No Longer abingdon Osman as HI, Drug form: Active 2010 Medical SUPP, Daily, Center PRN as needed for constipation, Start date: 01/31/11 14:56:00, Duration: 30 day, Stop date: 03/02/11 14:55:00 Keppra 100 mg/mL 500 mg, 5 mL, [place] On Hold [facility] [place] [facility] oral solution [place], Q12H, 60 2010 Medic al mL, Center Substitution Allowed, SOLN docusate sodium 100 mg, 1 cap, PO On Hold abingdon H [place] 100 mg oral PO, BID, 60 2010 Medical capsule cap, Center Substitution Allowed, CAP dexamethasone 4 mg 4 mg, 1 tab, PO On Hold [facility] oral tablet PO, Q6H-02, 60 2010 Medic al tab, Center Substitution Allowed, TAB bisacodyl 10 mg 10 mg, 1 supp, HI On Hold [facility] M [place] [facility] rectal suppository HI, Daily, 2010 Me dical PRN, 60 supp, Center Constipation, Substitution Allowed, SUPP [place] 5/325 oral 1 tab, PO, PO On [place] tablet Q4H, PRN, 60 2010 Medical tab, Headache, Center Substitution Allowed, Maintenance, TAB [place] 5/325 oral 1 tab, Route: PO No Longer [place]ner [place] tablet PO, Drug Form: Active 2010 Medical TAB, Q4H, PRN [place] Headache, Start date: 01/30/11 15:44:00, Duration: 30 day, Stop date: 03/01/11 15:43:00 dexamethasone 4 mg, 1 tab, PO No Longer Christianson [facility] Route: PO, Active 2010 Medical Drug form: [place] TAB, Q6H-02, Start date: 01/29/11 12:00:00, Stop date: 02/28/11 6:00:00 insulin 20 unit, 0.2 SUB-Q No Longer Omidvar [place] isophane-NPH mL, Route: Active 2010 Medical SUB-Q, Drug Center form: INJ, Q8H, Start date: 01/29/11 8:00:00, Stop date: 02/28/11 0:00:00 Keppra 100 mg/mL 500 mg, 5 mL, [place] No Longer Boss [facility] oral solution Route: JATIN, Active 2010 Medical Drug form: [place] SOLN, Q12H, Start date: 01/28/11 21:00:00, Duration: 30 day, Stop date: 02/27/11 9:00:00 ranitidine 15 150 mg, 10 mL, [place] No Longer Boss [facility] mg/mL oral syrup Route: JATIN, Active 2010 [facility] Drug form: [place] SYRP, Q12H, Start date: 01/28/11 21:00:00, Duration: 30 day, Stop date: 02/27/11 9:00:00 Dextrose 50% 6.25 gm, 12.5 IVP No Longer Shagagi [facility] Syringe mL, Route: Active 2010 Medical IVP, Drug Center Form: INJ, PRN, PRN Abnormal Lab Result, Start date: 01/28/11 17:39:00, Duration: 30 day, Stop date: 02/27/11 17:38:00 insulin regular 3 unit, 0.03 SUB-Q No Longer George 08/30/ [facility] [place] human recombinant mL, Route: Active 2010 Med ical 100 units/mL SUB-Q, Drug Center injectable form: SOLN, solution PRN, PRN Abnormal Lab Result, Start date: 01/28/11 17:39:00, Duration: 30 day, Stop date: 02/27/11 17:38:00 metFORmin 1000 mg 1,000 mg, 1 PO No Longer [place] [facility] oral tablet tab, Route: Active 2010 Medical PO, Drug form: Center TAB, BID, Start date: 01/28/11 17:00:00, Duration: 30 day, Stop date: 02/27/11 9:00:00 heparin 5,000 unit, 1 SUB-Q No Longer [place] [facility] mL, Route: Active 2010 Medical SUB-Q, Drug Center form: INJ, Q8H, Start date: 01/28/11 0:00:00, Duration: 30 day, Stop date: 02/26/11 16:00:00 sodium phosphate 18 mmol, 6 mL, IV Active Day [place] Route: IV, 2010 Medical ONCE, Start Center date: 01/27/11 3:30:00, Stop date: 01/27/11 3:30:00 normal saline 0.9% 1,000 mL, IV No Longer George [facility] IV 1,000 mL Rate: 50 Active 2010 [...] IVP, Q6H, Active 2010 Medical Start date: [place] 01/26/11 12:00:00, Duration: 30 day, Stop date: 02/25/11 6:00:00 mannitol 75 gm, 375 mL, IVPB No Longer Christian [place]man as Route: IVPB, Active 2010 Medical Drug form: [place] INJ, Q6H, Start date: 01/26/11 12:00:00, Duration: [...] IVPB, ONCE, Active 2010 Medical Start date: [place] 01/25/11 17:50:00, Stop date: 01/25/11 17:50:00 heparin [...] phosphate 15 mmol, IVPB No Longer [place] 01/[facility] [place] Route: IVPB, Active 2010 Medical PRN, PRN Center Abnormal Lab Result, Start date: 01/25/11 6:44:00, Duration: 30 day, Stop date: 02/24/11 6:43:00 magnesium sulfate 4 gm, 100 mL, IVPB No Longer Christian [facility] Route: IVPB, Active 2010 Medical Drug form: [place] INJ, ONCE, Start date: 01/25/11 6:44:00, Duration: 1 doses or times, Stop date: 01/25/11 6:44:00, For Mg = 1.5 - 1.7 mg/dLFor Mg = 1.5 - 1.7 mg/dL hydrALAZINE 10 mg, 0.5 mL, IV No Longer Christian [facility] Route: IV, Active 2010 Medical Drug form: [place] INJ, Q30Min, PRN Hypertension, Start date: 01/25/11 0:14:00, Duration: 30 day, Stop date: 02/24/11 0:13:00 dexamethasone 10 mg, 1 mL, IV No Longer Rizvi 01/25[facility] Route: IV, Active 2010 Medical Drug form: [place] INJ, Q6H, Start date: 01/25/11 0:00:00, Stop date: 02/23/11 18:00:00 Insulin regular 99 mL, Rate: IV No Longer Avinash 01/25/ [facility] 100 unit + Sodium TITRATE, Active 2010 Medic al Chloride 0.9% IV Route: IV, Cent er 99 mL Total Volume: 100, Start date: 01/24/11 23:59:00, Duration: 30 day, Stop date: 02/23/11 23:58:00 Dextrose 50% 12.5 gm, 25 IVP No Longer [place] 01/[place] [place] Syringe mL, Route: Active 2010 Medical IVP, Drug Center Form: INJ, PRN, PRN Abnormal Lab Result, Start date: 01/24/11 23:41:00, Duration: 30 day, Stop date: 02/23/11 23:40:00 Insulin regular 100 mL, Rate: IVPB No Longer Christian [facility] 100 unit + Sodium Start at 0.05 Active 2010 Medical Chloride 0.9% units/kg/hour- Mitch ter (titrate) 100 mL , Route: IVPB, Total Volume: 100, Duration: 30 day, Stop date: 02/23/11 23:41:00, Replace Every: 24 hr labetalol 10 mg, 2 mL, IV No Longer Christian 01/[place] [place] Route: IV, Active 2010 Medical Drug form: [place] INJ, Q15Min, PRN Hypertension, Start date: 01/24/11 22:36:00, Duration: 30 day, Stop date: 02/23/11 22:35:00 levetiracetam 500 mg, Route: IV No Longer Boss [facility] [place] IV, Q12H, Active 2010 Medical Start date: [place] 01/24/11 21:00:00, Duration: 30 day, Stop date: 02/23/11 9:00:00 famotidine 20 mg, 2 mL, IV No Longer [facility] [place] as Route: IV, 2010 Medical Drug form: [place] INJ, Q12H, Start date: 01/24/11 21:00:00, Stop date: 02/23/11 9:00:00 propofol 10 mg/ml 1,000 mg, 100 IV No Longer [place] 01/25[facility] (titrate) 1,000 mg mL, Rate: Active 2010 Med ical Titrate as Center directed, Route: IV, Total Volume: 100 ml, Start date: 01/24/11 20:56:00, Duration: 30 day, Stop date: 02/23/11 20:55:00, Replace Every: 12 hr chlorhexidine 15 ml, Route: S&SPIT No Longer Ryan [facility] [place] [place] topical 0.12% S&SPIT, Q4H, Active 2010 Medic al liquid Drug form: [place] LIQ, Start date: 01/24/11 20:00:00, Duration: 30 day, Stop date: 02/23/11 16:00:00 niCARdipine 40 mg 40 mg, 200 mL, IV No Longer George 01/25 [facility] [place] 200 ml IV 40 Rate: Titrate, Active 2010 Medical mg Route: IV, Center Total Volume: 200 mL, Duration: 30 day, Stop date: 02/23/11 19:06:00, Replace Every: 24 hr vancomycin 1 gm, Route: IVPB No Longer Boss [place] IVPB, Drug Active 2010 Medical form: INJ, Center [id number], Start date: 01/24/11 9:00:00, Duration: 30 day, Stop date: 02/22/11 21:00:00 famotidine 20 mg 20 mg, 1 tab, PO No Longer Christian [facility] oral tablet Route: PO, Active 2010 [...] 5,000 unit, 1 SUB-Q No Longer Burs[place] [facility] units/mL mL, Route: Active 2010 [facility] injectable SUB-Q, Drug Center solution form: INJ, Q8H, Start date: 01/23/11 16:00:00, Duration: 30 day, Stop date: 02/22/11 8:00:00 [place] 250 mcg, SUB-Q On Hold [facility] SUB-Q, BID, 2010 Medical Substitution Center Allowed, INJ cephalexin 500 mg, PO, PO On Hold [place] monohydrate 500 mg TID, 2010 Medic al oral tablet Substitution Center Allowed, CAP Levaquin 500 mg 1 tab, PO, PO [place] oral tablet Q24H, 10 tab, 2010 Medica l Substitution Center Allowed, TAB metFORmin 500 mg 500 mg, PO, PO On Hold [facility] oral tablet TID, 2010 Medical Substitution Center Allowed, TAB Crestor 20 mg oral 1 tab, PO, PO On Hold [place] tablet Daily, 30 tab, 2010 Medical Substitution Center Allowed, TAB benzonatate 200 mg 1 cap, PO, PO On Hold [facility] oral capsule TID, 30 cap, 2010 Medica l Substitution Center Allowed, CAP atenolol 50 mg 1 tab, PO, PO On Hold [place] as oral tablet Daily, 30 tab2010 Medic al Substitution Center Allowed [place] Thyroid 120 1 tab, PO, PO On Hold Zeider [place] mg oral tablet Daily, 30 tab, 2010 Me dical Substitution Center Allowed, TAB docusate 100 mg, 1 cap, PO No Longer [place] Route: PO, Active 2010 Medical Drug form: [place] CAP, BID, Start date: 01/23/11 9:00:00, Stop date: 02/21/11 17:00:00 Senna 8.6 mg oral 8.6 mg, 1 tab, PO No Longer Nur 01/23 [facility] tablet Route: PO, Active 2010 Medical Drug Form: [place] TAB, Q12H, Start date: 01/23/11 9:00:00, Duration: 30 day, Stop date: 02/21/11 21:00:00 levetiracetam 500 mg, 1 tab, PO No Longer Christian 01/23[facility] Route: PO, Active 2010 Medical Drug form: [place] TAB, Q12H, Start date: 01/23/11 9:00:00, Duration: 30 day, Stop date: 02/21/11 21:00:00 calcium chloride 1,000 mg, 10 IVPB No Longer Day [facility] mL, Route: Active 2010 Medical IVPB, ONCE, [place] Start date: 01/23/11 8:30:00, Stop date: 01/23/11 8:30:00 magnesium sulfate 2 gm, 50 mL, IVPB No Longer Day [facility] Route: IVPB, Active 2010 Medical Drug form: [place] INJ, Q2H, Start date: 01/23/11 8:20:00, Duration: 2 doses or times, Stop date: 01/23/11 10:00:00 dexamethasone 4 mg, 1 tab, PO No Longer Christian [facility] Route: PO, Active 2010 Medical Drug form: [place] TAB, Q6H, Start date: 01/23/11 6:00:00, Duration: 30 day, Stop date: 02/22/11 0:00:00 acetaminophen 650 mg, 2 tab, PO No Longer Nur [facility] [place] [place] Route: PO, Active 2010 Medical Drug form: Center TAB, Q4H, PRN Pain/Fever, Start date: 01/23/11 5:22:00, Duration: 30 day, Stop date: 02/22/11 5:21:00 morphine Sulfate 2 mg, 1 mL, IVP No Longer Rizvi [facility] [place] [place] Route: IVP, Active 2010 Medical Drug form: Center INJ, Q4H, PRN Pain Score 4-6, Start date: 01/23/11 5:22:00, Duration: 30 day, Stop date: 02/22/11 5:21:00, Hold for respiratory rate of 8 or less NS + KCL 20mEq/L 1,000 mL, IV No Longer Christian [facility] 1000ml (Premix) Rate: 60 Active 2010 Medical 1,000 mL 1,000 mL ml/hr, Infuse Center over: 16.7 hr, Route: IV, Total Volume: 1,000, Start date: 01/23/11 5:21:00, Duration: 30 day, Stop date: 02/22/11 5:20:00 insulin regular 5 unit, 0.05 SUB-Q No Longer [place] [facility] [place] human recombinant mL, Route: Active 2010 Med ical 100 units/mL SUB-Q, Drug Center injectable form: SOLN, solution PRN, PRN Abnormal Lab Result, Start date: 01/23/11 5:14:00, Duration: 30 day, Stop date: 02/22/11 5:13:00 Dextrose 50% 6.25 gm, 12.5 IVP No Longer [place] 01/23[facility] Syringe mL, Route: Active 2010 [facility] IVP, Drug Center Form: INJ, PRN, PRN Abnormal Lab Result, Start date: 01/23/11 5:14:00, Duration: 30 day, Stop date: 02/22/11 5:13:00 Saline Flush 0.9% 5 ml, Route: IVP No Longer [place] 01/23[facility] IVP, Drug Active 2010 Medical Form: INJ, Center PRN, PRN Line Flush, Start date: 01/23/11 5:14:00, Duration: 30 day, Stop date: 02/22/11 5:13:00 bisacodyl 10 mg, 1 supp, [place] No Longer Nur 01/23[facility] [place] Route: HI, Active 2010 Medical Drug form: Center SUPP, Daily, PRN Constipation, Start date: 01/23/11 5:14:00, Duration: 30 day, Stop date: 02/22/11 5:13:00 acetaminophen 650 mg, 2 tab, PO No Longer Nur 01/23/ [facility] [place] [place] Route: PO, Active 2010 Medical Drug form: Center TAB, Q4H, PRN Pain/Fever, Start date: 01/23/11 5:14:00, Duration: 30 day, Stop date: 02/22/11 5:13:00 morphine Sulfate 2 mg, 1 mL, IVP No Longer Nur 01/23[facility] Route: IVP, Active 2010 Medical Drug form: Center INJ, Q1H, PRN Pain Score 7-10, Start date: 01/23/11 5:14:00, Duration: 30 day, Stop date: 02/22/11 5:13:00 ondansetron 4 mg, 2 mL, IVP No Longer Nur 01/23[facility] [place]man as Route: IVP, Active 2010 Medical Drug form: Center INJ, Q8H, PRN Nausea & Vomiting, Start date: 01/23/11 5:14:00, Duration: 30 day, Stop date: 02/22/11 5:13:00 Allergies, Adverse Reactions, Alerts Substance Category Reaction Severity Reaction Status Date Comments S ource type Reported penicillins< Assertion rash Drug Active Data [facility] sup>1</sup> allergy 1 migrated Med ical from [facility] on 01/22/15. Originally documented as PCN. erythromycin Assertion Drug Active Data [facility] <sup>2</sup> allergy 1 migrated Me dical from [facility] on 01/22/15. Originally documented as ERYTHROMYC IN. aspirin<sup> Assertion severe Drug Active Data [facility] 3</sup> chest allergy 1 migrated Medical pain from [facility] on 01/22/15. Originally documented as ASPIRIN. Adhesive Assertion Allergy to Active Data [facility] Tape<sup>4</ substance 1 migrated Medical sup> from [facility] on 08/01/15. Originally documented as ADHESIVE TAPE. PHENobarbita Assertion Drug Active Data [place] l<sup>5</sup allergy 1 migrated Me dical > from [facility] on 01/22/15. Originally documented as PHENOBARBI COSTA. aspirin<sup> Assertion severe Drug Active Data [place] 4</sup> chest allergy 1 migrated Medical pain from [facility] on 01/22/15. Originally documented as ASPIRIN. Adhesive Assertion Allergy to Active Data [facility] Tape<sup>6</ substance 1 migrated Medical sup> from [facility] on 08/01/15. Originally documented as ADHESIVE TAPE. PHENobarbita Assertion Drug Active Data [facility] l<sup>7</sup allergy 1 migrated Me dical > from [facility] on 01/22/15. Originally documented as PHENOBARBI COSTA. ciprofloxaci Assertion Drug Active [facility] heparin Assertion Severe Drug Active [place] as [facility] phenobarbita Assertion rash Drug Active [facility] [place] cefepime Assertion Drug Active [facility] Cortizone-10 Assertion Drug Active [facility] aspirin allergy to severe Allergy Active [facility] [place] substance chest Medica l pain Center erythromycin drug Allergy Active [facility] penicillins drug rash Allergy Active [facility] Silk Tape propensity takes Adverse Active [facility] to adverse skin off Reaction Med ical reactions Center to substance gabapentin<s Assertion Propensity Active fatigu e [facility] up>3</sup> to adverse Me dical reactions Center to drug immune Assertion Drug Active [place] as globulin allergy called Medical intravenous< [facility] Ce nter sup>5</sup> on 12/06/19 and stated that the pt was allergic to IVIG Immunizations Immunization Date Given Site Status Last Updated Comments Rosalinda rce influenza virus 02/23/2019 Not Given [facility] vaccine, [facility] DOMONIQUE Lorenz nn Results Order Name Results Value Reference Date Interpretation Comments Rosalinda rce Range CHEM PANEL Magnesium 2.2 1.8 - 2.4 02/26 [facility] /[address] [place] [address] CHEM PANEL Phosphorus 3.3 2.5 - 4.5 02/[address] CHEM PANEL Glucose Lvl 176 70 - 99 02/26 [facility] CHEM PANEL BUN 20 7 - 22 02/26 [facility] CHEM PANEL Creatinine 0.96 0.50 - 02/26 [facility] Lvl 1.40 [facility] CHEM PANEL Sodium Lvl 141 135 - 145 02/26 2019 [facility] CHEM PANEL Potassium 4.3 3.5 - 5.1 02/26 [facility] CHEM PANEL Chloride Lvl 111 95 - 109 02/26 s [facility] CHEM PANEL CO2 27 24 - 32 02/26 2019 [facility] CHEM PANEL AGAP 7.3 10.0 - 02/26 [place] 20.0 [facility] CHEM PANEL Calcium Lvl 8.7 8.5 - 10.5 02/26 [facility] as [facility] CHEM PANEL eGFR 59 02/26 Result Comment: [...] HEMATOLOGY WBC 19.0 3.7 - 10.4 02/26 [facility] HEMATOLOGY RBC 3.82 4.20 - 02/26 [facility] 5.40 [facility] HEMATOLOGY Hgb 9.2 12.0 - 02/26 [facility] 16.0 [facility] HEMATOLOGY Hct 29.8 36.0 - 02/26 [facility] 48.0 [facility] HEMATOLOGY MCV 78.2 80.0 - 02/26 [facility] 98.0 [facility] HEMATOLOGY MCH 24.1 27.0 - 02/26 [facility] 31.0 /2019 [facility] HEMATOLOGY MCHC 30.9 32.0 - 02/26 [facility] 36.0 /2019 [facility] HEMATOLOGY RDW 20.2 11.5 - 02/26 [facility] 14.5 /2019 [facility] HEMATOLOGY Platelet 110 133 - 450 02/[address] HEMATOLOGY MPV 9.5 7.4 - 10.4 02/[address] HEMATOLOGY Segs 78.2 45.0 - 02/26 [facility] 75.0 /2019 [facility] HEMATOLOGY Lymphocytes 15.4 20.0 - 02/26 [facility] 40.0 /2019 [facility] HEMATOLOGY Monocytes 5.7 2.0 - 12.0 02/[address] HEMATOLOGY Eosinophils 0.3 0.0 - 4.0 02/26 [facility] s /[address] [place] [address] HEMATOLOGY Basophils 0.4 0.0 - 1.0 02/[address] HEMATOLOGY Neutrophils 14.9 1.5 - 8.1 02/26 [place]2019 [facility] HEMATOLOGY Lymphocytes 2.9 1.0 - 5.5 02/26 [place] # /[address] [place] [address] HEMATOLOGY Monocytes # 1.1 0.0 - 0.8 02/26 [facility] /[address] [place] [address] HEMATOLOGY Eosinophils 0.1 0.0 - 0.5 02/26 [facility] s # /[address] [place] [address] HEMATOLOGY Basophils # 0.1 0.0 - 0.2 02/26 [facility] /[address] [place] [address] HEMATOLOGY Microcyte 1+ None Seen 02/26 [facility] *ABN* /2019 Medical (02/27/20 12:52 AM) Cente r PARATHYROID Ca Ion WB 1.22 1.05 - 02/26 [facility] PROFILE 1. [facility] PARATHYROID Ca Norm WB 1.20 1.05 - 02/26 [facility] PROFILE . [facility] CHEM PANEL Magnesium 2.1 1.8 - 2.4 02/25 [facility] /[address] [place] [address] CHEM PANEL Glucose Lvl 253 70 - 99 02/[address] CHEM PANEL BUN 14 7 - 22 02/[address] CHEM PANEL Creatinine 0.74 0.50 - 02/25 [facility] Lvl 1.40 [facility] CHEM PANEL Sodium Lvl 141 135 - 145 02/25 [facility] CHEM PANEL Potassium 4.3 3.5 - 5.1 02/25 [facility] Lvl [facility] CHEM PANEL Chloride Lvl 112 95 - 109 02/25 [facility] CHEM PANEL CO2 23 24 - 32 02/25 [facility]2019 [facility] CHEM PANEL Calcium Lvl 8.7 8.5 - 10.5 02/25 [facility] as [facility] CHEM PANEL AGAP 10.3 10.0 - 02/25 [facility] 20.0 [facility] CHEM PANEL eGFR 80 02/25 Result Comment: [...] Phosphorus 2.7 2.5 - 4.5 02/25 2019 [facility] HEMATOLOGY Segs 84.4 45.0 - 02/25 [facility] 75.0 [facility] HEMATOLOGY Lymphocytes 10.8 20.0 - 02/25 [place] 40.0 [facility] HEMATOLOGY Monocytes 4.4 2.0 - 12.0 02/25 [facility]2019 [facility] HEMATOLOGY Eosinophils 0.1 0.0 - 4.0 02/25 [facility] s /2019 [facility] HEMATOLOGY Basophils 0.3 0.0 - 1.0 02/25 [facility]2019 [facility] HEMATOLOGY Neutrophils 14.3 1.5 - 8.1 02/[place]2019 [facility] HEMATOLOGY Lymphocytes 1.8 1.0 - 5.5 02/25 [facility] # /2019 [facility] HEMATOLOGY Monocytes # 0.7 0.0 - 0.8 02/25 [facility] [address] [place] [address] HEMATOLOGY Microcyte 1+ None Seen 02/25 [facility] *ABN* /2019 [facility] (02/26/20 1:07 AM) [place] HEMATOLOGY WBC 16.9 3.7 - 10.4 02/[address] HEMATOLOGY RBC 3.72 4.20 - 02/25 [facility] 5.40 [facility] HEMATOLOGY Hgb 9.0 12.0 - 02/25 [facility] 16.0 /2019 [facility] HEMATOLOGY Hct 29.3 36.0 - 02/25 [facility] 48.0 /2019 [facility] HEMATOLOGY MCV 78.8 80.0 - 02/25 [facility] 98.0 /2019 [facility] HEMATOLOGY MCH 24.1 27.0 - 02/25 [facility] 31.0 /2019 [facility] HEMATOLOGY MCHC 30.6 32.0 - 02/25 [facility] 36.0 /2019 [facility] HEMATOLOGY RDW 19.6 11.5 - 02/25 [facility] 14.5 /2019 [facility] HEMATOLOGY Platelet 98 133 - 450 02/[address] HEMATOLOGY MPV 10.1 7.4 - 10.4 02/[address] PARATHYROID Ca Ion WB 1.18 1.05 - 02/25 [facility] PROFILE 1.25 /2019 [facility] PARATHYROID Ca Norm WB 1.17 1.05 - 02/25 [facility] PROFILE 1.25 /2019 [facility] CHEM PANEL Glucose Lvl 257 70 - 99 02/[address] CHEM PANEL BUN 16 7 - 22 02/[address] CHEM PANEL Creatinine 0.75 0.50 - 02/24 [facility] Lvl 1.40 [facility] CHEM PANEL Sodium Lvl 143 135 - 145 02/[address] CHEM PANEL Potassium 4.1 3.5 - 5.1 02/24 [facility] /[address] [place] [address] CHEM PANEL Chloride Lvl 111 95 - 109 02/[address] CHEM PANEL CO2 24 24 - 32 02/[address] CHEM PANEL Calcium Lvl 9.0 8.5 - 10.5 02/[address] CHEM PANEL AGAP 12.1 10.0 - 02/24 [facility] 20.0 /2019 [facility] CHEM PANEL eGFR 80 02/24 Result [place] [id number] Comment: The Medical eGFR is Center calculated [...] PANEL Magnesium 1.9 1.8 - 2.4 02/[address] CHEM PANEL Phosphorus 2.6 2.5 - 4.5 02/[address] HEMATOLOGY Fibrinogen 159 230 - 510 02/[address] HEMATOLOGY Segs 84.7 45.0 - 02/24 [facility] 75.0 2019 [facility] HEMATOLOGY Lymphocytes 10.5 20.0 - 02/24 [facility] 40.0 2019 [facility] HEMATOLOGY Monocytes 4.5 2.0 - 12.0 02/[address] HEMATOLOGY Eosinophils 0.1 0.0 - 4.0 02/[address] HEMATOLOGY Basophils 0.2 0.0 - 1.0 02/[address] HEMATOLOGY Neutrophils 15.2 1.5 - 8.1 02/24 [facility] # /2019 [facility] HEMATOLOGY Lymphocytes 1.9 1.0 - 5.5 02/24 [facility] s # /[address] [place] [address] HEMATOLOGY Monocytes # 0.8 0.0 - 0.8 02/[address] HEMATOLOGY Microcyte 1+ None Seen 02/24 [facility] *ABN* /2019 [facility] (02/25/20 3:30 AM) [place] HEMATOLOGY WBC 17.9 3.7 - 10.4 02/[address] HEMATOLOGY RBC 3.96 4.20 - 02/24 [facility] 5.40 /2019 [facility] HEMATOLOGY Hgb 9.6 12.0 - 02/24 [place] 16.0 [facility] HEMATOLOGY Hct 31.0 36.0 - 02/24 [facility] 48.0 [facility] HEMATOLOGY MCV 78.3 80.0 - 02/24 [facility] 98.0 [facility] HEMATOLOGY MCH 24.3 27.0 - 02/24 [place] 31.0 [facility] HEMATOLOGY MCHC 31.0 32.0 - 02/24 [place] 36.0 [facility] HEMATOLOGY RDW 19.5 11.5 - 02/24 [facility] 14.5 [facility] HEMATOLOGY Platelet 94 133 - 450 02/[address] HEMATOLOGY MPV 9.6 7.4 - 10.4 02/[address] PARATHYROID Ca Ion WB 1.17 1.05 - 02/24 [facility] PROFILE 1. [facility] PARATHYROID Ca Norm WB 1.17 1.05 - 02/24 [facility] PROFILE 1.25 [facility] HEMATOLOGY Heparin Negative 5 Negative 02/23 Result [facility] Ab(SRIDEVI) (02/24/20 4:43 PM) Comment: [facility] Medical assay detects Center heparin antibodies of IgG isotype. Antibodies of other isotypes have been reported to cause heparin-induc ed thrombocytope davey. Therefore, if there is a strong clinical suspicion of HIT, additional study with a serotonin release assay is recommented. HEMATOLOGY Pat Od Value 0.064 02/23 [facility] /[address] [place] [address] HEMATOLOGY Pos CO Value 0.400 02/[address] HEMATOLOGY Basophils # 0.1 0.0 - 0.2 02/23 [facility] s /2019 [facility] HEMATOLOGY Fibrinogen 175 230 - 510 02/22 [facility] Lvl /2019 [facility] CARDIAC BNP 73 <=100 02/21 [facility] ENZYMES pg/mL [facility] HEMATOLOGY Anisocyte 1+ None Seen 02/21 [facility] *ABN* /2019 [facility] (02/22/20 10:43 AM) Cente r HEMATOLOGY Hypochrom 1+ None Seen 02/21 [facility] (02/22/20 10:43 AM) /2019 [facility] HEMATOLOGY Eosinophils 0.2 0.0 - 0.5 02[place]21 [place]2019 [facility] HEMATOLOGY Basophils # 0.2 0.0 - 0.2 02/21 [facility] s /2019 [facility] CHEM PANEL Lactic Acid 1.7 0.5 - 2.2 02/21 [facility] /2019 [facility] HEMATOLOGY Eosinophils 0.1 0.0 - 0.5 02/21 [facility] # [facility] CHEM PANEL Lactic Acid 3.8 0.5 - 2.2 02/21 [facility] /2019 [facility] CEFTRIAXONE Culture: 10,000 - 50,000 CFU/mL Enterobacter cloacae 02/21 [place] :SUSC:PT:IS Urine . /2019 Medical OLATE:ORDQN 10,000 - 50,000 CFU/mL [facility] :MARIA TERESA CEFTRIAXONE Enterobacter Enterobact 02/21 [place] :SUSC:PT:IS cloacae er cloacae Medical OLATE:ORDQN Center :MARIA TERESA URINE AND UA Color Light Yellow Yellow 02/21 [facility] STOOL *NA* [facility] (02/21/20 9:52 PM) [place] URINE AND UA Turbidity Slight Clear 02/21 [facility] STOOL *ABN* /2019 [facility] (02/21/20 9:52 PM) [place] URINE AND UA Spec Grav 1.015 <=1.030 02/21 [facility] STOOL /[address] [place] [address] URINE AND UA pH 5.0 5.0 - 8.0 02/21 [facility] STOOL /[address] [place] [address] URINE AND UA Protein Negative Negative 02/21 [facility] mg/dL mg/dL /[address] [place] [address] URINE AND UA Glucose 500 mg/dL Negative 02/21 [facility] STOOL mg/dL /[address] [place] [address] URINE AND UA Ketones Negative Negative 02/21 [facility] mg/dL mg/dL /[address] [place] [address] URINE AND UA Bili Negative Negative 02/21 [facility] STOOL *NA* [facility] (02/21/20 9:52 PM) [place] URINE AND UA Blood Negative Negative 02/21 [facility] (02/21/20 9:52 PM) /[facility] Medica l [place] URINE AND UA <1.0 0.1 - 1.0 02/21 [facility] Urobilinogen /[address] [place] [address] URINE AND UA Nitrite Positive Negative 02/21 [facility] STOOL *ABN* /[address] [place] [address] (02/21/20 9:52 PM) [place] URINE AND UA Leuk Est Trace Negative 02/21 [facility] STOOL *ABN* [facility] (02/21/20 9:52 PM) Center URINE AND UA Sq Epi Occasional Few /LPF 02/21 [facility] STOOL /F /[address] [place] [address] URINE AND UA WBC 16 0 - 5 02/[address] URINE AND UA RBC 2 0 - 2 02/[address] URINE AND UA Bacteria Occasional None Seen 02/21 [place] STOOL /HPF /HPF /[address] [place] [address] URINE AND UA Mucus Few /LPF None Seen 02/21 [facility] STOOL /F /[address] [place] [address] URINE AND UA Hyal Cast 3 0 - 2 02/[address] CHEM PANEL Lactic Acid 2.9 0.5 - 2.2 02/[address] CHEM PANEL Procalcitoni <0.05 0.00 - 02/21 [facility] n Lvl ng/mL 0.10 [facility] HEMATOLOGY Fibrinogen 158 230 - 510 02/[address] HEMATOLOGY PT 14.2 12.0 - 02/20 [facility] 14.7 /[address] [place] [address] HEMATOLOGY INR 1.10 0.85 - 02/20 [facility] 1.17 /2019 [facility] HEMATOLOGY PTT 43.0 22.9 - 02/20 [facility] 35.[address] HEMATOLOGY Fibrinogen 158 230 - 510 02/[address] BLOOD BANK ABO/Rh O POS 02/18 [facility] RESULTS /[address] [place] [address] BLOOD BANK Antibody Negative 02/18 [facility] RESULTS Scrn (02/19/20 9:31 AM) /2019 [facility] CHEM PANEL Glucose Lvl 102 70 - 99 02/[address] CHEM PANEL BUN 15 7 - 22 02/[address] CHEM PANEL Creatinine 0.67 0.50 - 02/18 [facility] Lvl 1.[address] [place] [address] CHEM PANEL Sodium Lvl 144 135 - 145 02/[address] CHEM PANEL Potassium 3.6 3.5 - 5.1 02/[address] CHEM PANEL Chloride Lvl 110 95 - 109 02/[address] CHEM PANEL CO2 29 24 - 32 02/[address] CHEM PANEL Calcium Lvl 8.4 8.5 - 10.5 02/18 [facility] /[address] [place] [address] CHEM PANEL AGAP 8.6 10.0 - 02/18 [place] 20.0 [facility] CHEM PANEL eGFR 87 02/18 [facility] Comment: The Medical eGFR is Center [...] PANEL Magnesium 1.8 1.8 - 2.4 02/18 [facility] /2019 [facility] CHEM PANEL Phosphorus 2.5 2.5 - 4.5 02/[address] HEMATOLOGY PT 14.2 12.0 - 02/18 [place] 14.7 /2020 [facility] HEMATOLOGY INR 1.10 0.85 - 02/18 [facility] 1.17 [facility] HEMATOLOGY PTT 37.8 22.9 - 02/18 [place] 35.8 /2020 [facility] HEMATOLOGY Fibrinogen 167 230 - 510 02/18 [facility] /2019 [facility] HEMATOLOGY D-Dimer 0.96 02/18 [facility]2019 [facility] HEMATOLOGY Thrombin 25.6 15.0 - 02/18 [place] Time 21.2 /2020 [facility] HEMATOLOGY Fibrinogen 180 230 - 510 02/18 [facility] /2019 [facility] HEMATOLOGY PT 14.4 12.0 - 02/18 [place] 14.7 /2020 [facility] HEMATOLOGY INR 1.11 0.85 - 02/18 [place] 1.17 [facility] HEMATOLOGY PTT 37.1 22.9 - 02/18 [place] 35.8 /2020 [facility] HEMATOLOGY WBC 18.9 3.7 - 10.4 02/18 [facility]2020 [facility] HEMATOLOGY RBC 4.69 4.20 - 02/18 [facility] [place] 5.40 /2019 [facility] HEMATOLOGY Hgb 11.2 12.0 - 02/18 [facility] 16.0 /2019 [facility] HEMATOLOGY Hct 37.1 36.0 - 02/18 [facility] 48.0 /2019 [facility] HEMATOLOGY MCV 79.1 80.0 - 02/18 [facility] 98.0 /2019 [facility] HEMATOLOGY MCH 23.8 27.0 - 02/18 [facility] 31.0 /2019 [facility] HEMATOLOGY MCHC 30.1 32.0 - 02/18 [facility] 36.0 /2019 [facility] HEMATOLOGY RDW 18.7 11.5 - 02/18 [facility] 14.5 /2019 [facility] HEMATOLOGY Platelet 134 133 - 450 02/[address] HEMATOLOGY MPV 9.7 7.4 - 10.4 02/[address] HEMATOLOGY Segs 61.0 45.0 - 02/18 [facility] 75.0 /2019 [facility] HEMATOLOGY Lymphocytes 30.5 20.0 - 02/18 [facility] 40.0 /2019 [facility] HEMATOLOGY Monocytes 7.1 2.0 - 12.0 02/[address] HEMATOLOGY Eosinophils 0.7 0.0 - 4.0 02/[address] HEMATOLOGY Basophils 0.7 0.0 - 1.0 02/[address] HEMATOLOGY Neutrophils 11.5 1.5 - 8.1 02/18 [facility] /2019 [facility] HEMATOLOGY Lymphocytes 5.8 1.0 - 5.5 02/18 [facility] /[address] [place] [address] HEMATOLOGY Monocytes # 1.3 0.0 - 0.8 02/[address] HEMATOLOGY Eosinophils 0.1 0.0 - 0.5 02/18 [facility] /[address] [place] [address] HEMATOLOGY Basophils # 0.1 0.0 - 0.2 02/[address] PARATHYROID Ca Ion WB 1.11 1.05 - 02/18 [facility] PROFILE 1. /2019 [facility] PARATHYROID Ca Norm WB 1.12 1.05 - 02/18 [facility] PROFILE . [facility] CHEM PANEL Phosphorus 3.5 2.5 - 4.5 02/[address] CHEM PANEL Magnesium 1.6 1.8 - 2.4 02/17 [facility] Lvl /2019 [facility] Center CHEM PANEL Glucose Lvl 210 70 - 99 02/17 [facility] CHEM PANEL BUN 12 7 - 22 02/17 [facility]2019 [facility] CHEM PANEL Creatinine 0.67 0.50 - 02/17 [facility] Lvl 1.40 [facility] CHEM PANEL Sodium Lvl 141 135 - 145 02/17 2019 [facility] CHEM PANEL Potassium 3.3 3.5 - 5.1 02/17 [facility] CHEM PANEL Chloride Lvl 106 95 - 109 02/17 [facility] CHEM PANEL CO2 28 24 - 32 02/17 [facility]2019 [facility] CHEM PANEL Calcium Lvl 8.7 8.5 - 10.5 02/17 [facility] as [facility] CHEM PANEL AGAP 10.3 10.0 - 02/17 [facility] 20.0 [facility] CHEM PANEL eGFR 87 02/17 [facility] Comment: The Medical eGFR is Center [...] BMI. HEMATOLOGY PT 17.5 12.0 - 02/17 [facility] 14.7 [facility] HEMATOLOGY INR 1.42 0.85 - 02/17 [facility] 1.17 [facility] HEMATOLOGY PTT 82.9 22.9 - 02/17 [place] 35.8 [facility] HEMATOLOGY D-Dimer 0.68 02/[address] HEMATOLOGY Fibrinogen 108 230 - 510 02/17 [facility] Lvl /2019 [facility] HEMATOLOGY Thrombin >100 15.0 - 02/17 [facility] Time seconds 21.2 [facility] HEMATOLOGY WBC 16.3 3.7 - 10.4 02/[address] HEMATOLOGY RBC 4.72 4.20 - 02/17 [place] 5.40 /2019 [facility] HEMATOLOGY Hgb 11.4 12.0 - 02/17 [place] 16.0 /2019 [facility] HEMATOLOGY Hct 37.0 36.0 - 02/17 [place] 48.0 /2019 [facility] HEMATOLOGY MCV 78.4 80.0 - 02/17 [place] 98.0 /2019 [facility] HEMATOLOGY MCH 24.1 27.0 - 02/17 [place] 31.0 /2019 [facility] HEMATOLOGY MCHC 30.7 32.0 - 02/17 [facility] 36.0 /2019 [facility] HEMATOLOGY RDW 18.3 11.5 - 02/17 [facility] 14.5 /2019 [facility] HEMATOLOGY Platelet 151 133 - 450 02/[address] HEMATOLOGY MPV 9.7 7.4 - 10.4 02/[address] HEMATOLOGY Segs 66.2 45.0 - 02/17 [place] 75.0 /2019 [facility] HEMATOLOGY Lymphocytes 23.2 20.0 - 02/17 [place] 40.0 /2019 [facility] HEMATOLOGY Monocytes 9.3 2.0 - 12.0 02/[address] HEMATOLOGY Eosinophils 0.8 0.0 - 4.0 02/17 [facility] /[address] [place] [address] HEMATOLOGY Basophils 0.5 0.0 - 1.0 02/[address] HEMATOLOGY Neutrophils 10.8 1.5 - 8.1 02/17 [place] /2019 [facility] HEMATOLOGY Lymphocytes 3.8 1.0 - 5.5 02/17 [place] /2020 [facility] HEMATOLOGY Monocytes # 1.5 0.0 - 0.8 02/17 [facility] s /[address] [place] [address] HEMATOLOGY Eosinophils 0.1 0.0 - 0.5 02/17 [place] # /[address] [place] [address] HEMATOLOGY Basophils # 0.1 0.0 - 0.2 02/17 [facility] /[address] [place] [address] HEMATOLOGY Microcyte 1+ None Seen 02/17 [place] *ABN* /2019 Medical (02/18/20 4:08 AM) Center PARATHYROID Ca Ion WB 1.13 1.05 - 02/17 [place] PROFILE 1.25 [facility] PARATHYROID Ca Norm WB 1.12 1.05 - 02/17 [place] PROFILE . [facility] IMMUNOLOGY Coronavirus Not Detected Not 02/16 [place] (COVID-19) (02/17/20 12:25 PM) Detected /2019 [facility] BLOOD BANK BB Note Result Note 4 02/16 Result [place] RESULTS (02/17/20 12:10 PM) Comment: [facility] roger 02/17/2020 [place] 14:11 [id number]
"Significant Findings of Positive Antibody Screen_ called to _Bryant Keen_ at _02/17/2020 14:11_ by _MG_. Read Back OK" BLOOD BANK ABO/Rh O POS 02/16 [facility] RESULTS /2019 [facility] BLOOD BANK Antibody Positive 02/16 [facility] RESULTS Scrn (02/17/20 12:10 PM) [facility] BLOOD BANK AB Int Anti-D 02/16 [facility] RESULTS /2019 [facility] BLOOD BANK Path AB Blood Bank 02/16 [facility] RESULTS Physician /2019 [facility] The patient is a 75 y/o female with history of dementia, meningioma s/p resection 10 years ago with VPS, type II diabetes mellitus, HTN, HLD, CAD, hypothyroi dism, JD, seropositi ve myasthenia gravis (anti-stri ated muscle antibodies ), and recent spinal surgery around 3 weeks who presented as a direct transfer from [facility] due to concerns of MG [...] resident, Dr. Doug Warner's, interpreta tion. CPT: 69722-PL CARDIAC Total CK 25 12 - 191 02/[address] CHEM PANEL Phosphorus 3.0 2.5 - 4.5 02/[address] CHEM PANEL Glucose Lvl 215 70 - 99 02/[address] CHEM PANEL BUN 11 7 - 22 02/[address] CHEM PANEL Creatinine 0.68 0.50 - 02/16 [facility] Lvl 1.40 [facility] CHEM PANEL Sodium Lvl 135 135 - 145 02/[address] CHEM PANEL Potassium 3.4 3.5 - 5.1 02/16 [facility] [address] CHEM PANEL Chloride Lvl 101 95 - 109 02/16 [facility] [address] CHEM PANEL CO2 31 24 - 32 02/[address] CHEM PANEL Calcium Lvl 8.4 8.5 - 10.5 02/16 [facility] as [address] CHEM PANEL AGAP 6.4 10.0 - 02/16 [facility] 20.0 2019 [facility] CHEM PANEL eGFR 87 02/16 [place] [id number] Comment: The Medical eGFR is Center calculated [...] CHEM PANEL Procalcitoni <0.05 0.00 - 02/16 [facility] n l 0.10 [facility] CHEM PANEL Lactic Acid 1.6 0.5 - 2.2 02/16 [facility] Lvl /2019 [facility] HEMATOLOGY WBC 16.0 3.7 - 10.4 02/[address] HEMATOLOGY RBC 5.23 4.20 - 02/16 [facility] 5.40 [facility] HEMATOLOGY Hgb 12.7 12.0 - 02/16 [facility] 16.0 [facility] HEMATOLOGY Hct 41.4 36.0 - 02/16 [facility] 48.0 /2019 [facility] HEMATOLOGY MCV 79.1 80.0 - 02/16 [facility] 98.0 [facility] HEMATOLOGY MCH 24.4 27.0 - 02/16 [facility] [facility] 31[facility]0 [facility] HEMATOLOGY MCHC 30.8 32.0 - 02/16 [facility] 36.0 [facility] HEMATOLOGY RDW 18.3 11.5 - 02/16 [facility] 14.5 [facility] HEMATOLOGY Platelet 161 133 - 450 02/[address] HEMATOLOGY MPV 10.1 7.4 - 10.4 02/[address] HEMATOLOGY Segs 84.7 45.0 - 02/16 [facility] 75.0 /2019 [facility] HEMATOLOGY Lymphocytes 9.3 20.0 - 18 [facility] 40.0 /2020 [facility] HEMATOLOGY Monocytes 5.0 2.0 - 12.[address] HEMATOLOGY Eosinophils 0.5 0.0 - 4.0 02/16 [facility] /2019 [facility] HEMATOLOGY Basophils 0.5 0.0 - 1.[address] HEMATOLOGY Neutrophils 13.6 1.5 - 8.1 02/16 [facility] # /2019 [facility] HEMATOLOGY Lymphocytes 1.5 1.0 - 5.5 02/16 [facility] # /2019 [facility] HEMATOLOGY Monocytes # 0.8 0.0 - 0.8 02/16 [facility] /2019 [facility] HEMATOLOGY Basophils # 0.1 0.0 - 0.2 02/16 [facility] /2019 [facility] LIPIDS Trig 156 <=149 02/16 [facility] mg/dL /[address] [place] [address] LIPIDS Chol 154 <=199 02/16 [facility] mg/dL /2019 [facility] LIPIDS HDL 54 >=61 mg/dL 02/[address] LIPIDS CHD Risk 2.85 3.90 - 02/16 [facility] 5.80 [facility] LIPIDS LDL 69 <=99 mg/dL 02/16 [facility] (Calculated) /2019 [facility] LIPIDS VLDL 31 02/[address] URINE AND UA Color Yellow Yellow 02/15 [facility] STOOL *NA* /2019 [facility] (02/15/20 10:29 PM) Cente r URINE AND UA Turbidity Marked Clear 02/15 [facility] STOOL *ABN* [facility] (02/15/20 10:29 PM) Cente r URINE AND UA Spec Grav 1.015 <=1.030 02/15 [facility] STOOL /[address] [place] [address] URINE AND UA pH 7.0 5.0 - 8.0 02/15 [facility] STOOL /[address] [place] [address] URINE AND UA Protein Negative Negative 02/15 [facility] STOOL mg/dL mg/dL [facility] URINE AND UA Ketones Negative Negative 02/15 [facility] STOOL mg/dL mg/dL [facility] URINE AND UA Bili Negative Negative 02/15 [facility] STOOL *NA* [facility] (02/15/20 10:29 PM) Cente r URINE AND UA Blood Negative Negative 02/15 [facility] STOOL (02/15/20 10:29 PM) [facility] al Center URINE AND UA <1.0 0.1 - 1.0 02/15 [facility] STOOL Urobilinogen /[address] [place] [address] URINE AND UA Nitrite Negative Negative 02/15 [facility] STOOL (02/15/20 10:29 PM) /2019 [facility] URINE AND UA Leuk Est Negative Negative 02/15 [facility] STOOL (02/15/20 10:29 PM) /2019 [facility] URINE AND UA Sq Epi Few /LPF Few /LPF 02/15 [facility] STOOL [address] URINE AND UA WBC 1 0 - 5 02/[address] URINE AND UA RBC 1 0 - 2 02/[address] URINE AND UA Bacteria Occasional None Seen 02/15 [place] ST[place]OL /HPF /HPF /[address] [place] [address] URINE AND UA Mucus Few /LPF None Seen 02/15 [facility] STOOL /LPF /[address] [place] [address] URINE AND UA Amorph Moderate None Seen 02/15 [facility] STOOL Jagruti /HPF /HPF /[address] [place] [address] URINE AND UA Hyal Cast 3 0 - 2 02/[address] URINE AND UA Glucose 150mg/dl 02/[address] CHEM PANEL Total 5.8 6.4 - 8.4 02/15 [facility] Protein [address] CHEM PANEL Albumin Lvl 2.4 3.5 - 5.0 02/15 [facility] [address] CHEM PANEL ALT 26 0 - 65 02/[address] CHEM PANEL AST 16 0 - 37 02/[address] CHEM PANEL Alk Phos 162 39 - 136 02/[address] CHEM PANEL Bili Total 0.3 0.2 - 1.3 02/[address] CHEM PANEL B/C Ratio 25 6 - 25 02/[address] CHEM PANEL Globulin 3.4 2.7 - 4.2 02/[address] CHEM PANEL A/G Ratio 0.7 0.7 - 1.6 02/[address] IMMUNOLOGY Coronavirus Not Detected Not 12/19 [place] (COVID-19) (12/20/19 12:18 PM) Detected /2019 [facility] CARDIAC Troponin-I 0.02 0.00 - 12/17 [facility] ENZYMES [address] [place] [address] CHEM PANEL Glucose Lvl 145 70 - 99 12/[address] CHEM PANEL BUN 10 7 - 22 12/[address] CHEM PANEL Creatinine 0.64 0.50 - 12/17 [place] Lvl 1.[address] [place] [address] CHEM PANEL Sodium Lvl 143 135 - 145 12/17 [facility] CHEM PANEL Potassium 3.9 3.5 - 5.1 12/17 [facility] CHEM PANEL Chloride Lvl 108 95 - 109 12/17 [facility] CHEM PANEL CO2 28 24 - 32 12/17 [facility]2019 [facility] CHEM PANEL AGAP 10.9 10.0 - 12/17 [facility] 20.0 [facility] CHEM PANEL Calcium Lvl 8.3 8.5 - 10.5 12/17 [facility] CHEM PANEL eGFR 89 12/17 [facility] Comment: The Medical eGFR is Center [...] PANEL Magnesium 2.1 1.8 - 2.4 12/17 [facility] CHEM PANEL Phosphorus 3.2 2.5 - 4.5 12/17 [facility] HEMATOLOGY WBC 9.9 3.7 - 10.4 12/17 [facility] HEMATOLOGY RBC 3.09 4.20 - 12/17 [place] 5.40 [facility] HEMATOLOGY Hgb 9.1 12.0 - 12/17 [facility] 16.0 [facility] HEMATOLOGY Hct 28.9 36.0 - 12/17 [facility] 48.0 [facility] HEMATOLOGY MCV 93.7 80.0 - 12/17 [facility] 98.0 [facility] HEMATOLOGY MCH 29.4 27.0 - 12/17 [place] 31.0 [facility] HEMATOLOGY MCHC 31.4 32.0 - 12/17 [place] 36.0 [facility] HEMATOLOGY RDW 16.7 11.5 - 12/17 [facility] 14.5 [facility] HEMATOLOGY Platelet 200 133 - 450 12/[address] HEMATOLOGY MPV 10.2 7.4 - 10.4 12/[address] HEMATOLOGY Segs 66.2 45.0 - 12/17 [facility] 75.0 [facility] HEMATOLOGY Lymphocytes 23.0 20.0 - 12/17 [place] 40.0 /2019 [facility] HEMATOLOGY Monocytes 8.2 2.0 - 12.0 12/[address] HEMATOLOGY Eosinophils 1.2 0.0 - 4.0 12/[address] HEMATOLOGY Basophils 1.4 0.0 - 1.0 12/[address] HEMATOLOGY Neutrophils 6.5 1.5 - 8.1 12/17 [facility] /[address] [place] [address] HEMATOLOGY Lymphocytes 2.3 1.0 - 5.5 12/17 [facility] /[address] [place] [address] HEMATOLOGY Monocytes # 0.8 0.0 - 0.8 12/[address] HEMATOLOGY Eosinophils 0.1 0.0 - 0.5 12/17 [facility] /[address] [place] [address] HEMATOLOGY Basophils # 0.1 0.0 - 0.2 12/[address] URINE AND UA Color Dark Yellow Yellow 12/17 [facility] STOOL *NA* /2019 [facility] (12/18/19 5:06 AM) [place] URINE AND UA Turbidity Slight Clear 12/17 [facility] STOOL *ABN* [facility] (12/18/19 5:06 AM) [place] URINE AND UA Spec Grav 1.018 <=1.030 12/17 [facility] /[address] [place] [address] URINE AND UA pH 6.0 5.0 - 8.0 12/[address] URINE AND UA Protein 30 mg/dL Negative 12/17 [facility] STOOL mg/dL /[address] [place] [address] URINE AND UA Ketones Negative Negative 12/17 [facility] STOOL mg/dL mg/dL /[address] [place] [address] URINE AND UA Bili Negative Negative 12/17 [facility] STOOL *NA* /2019 [facility] (12/18/19 5:06 AM) [place] URINE AND UA Blood Negative Negative 12/17 [facility] STOOL (12/18/19 5:06 AM) /2019 [facility] URINE AND UA 4.0 0.1 - 1.0 12/17 [facility] Urobilinogen /[address] [place] [address] URINE AND UA Nitrite Negative Negative 12/17 [facility] STOOL (12/18/19 5:06 AM) [facility] URINE AND UA Leuk Est Negative Negative 12/17 [facility] (12/18/19 5:06 AM) /2019 [facility] URINE AND UA Sq Epi Moderate Few /LPF 12/17 [facility] STOOL /LPF /[address] [place] [address] URINE AND UA WBC 10 0 - 5 12/[address] URINE AND UA RBC 2 0 - 2 12/[address] URINE AND UA Bacteria Few /HPF None Seen 12/17 [facility] STOOL /HPF /[address] [place] [address] URINE AND UA Mucus Few /LPF None Seen 12/17 [facility] /LPF /[address] [place] [address] URINE AND UA Hyal Cast 7 0 - 2 12/[address] URINE AND UA Machias Yeast Occasional None Seen 12/17 [place] STOOL /HPF /HPF /[address] [place] [address] URINE AND UA Glucose 50mg/dl 12/[address] CHEM PANEL Glucose Lvl 266 70 - 99 12/[address] CHEM PANEL BUN 11 7 - 22 12/[address] CHEM PANEL Creatinine 0.80 0.50 - 12/16 [facility] Lvl 1.[address] [place] [address] CHEM PANEL Sodium Lvl 140 135 - 145 12/[address] CHEM PANEL Potassium 3.4 3.5 - 5.1 12/16 [facility] /[address] [place] [address] CHEM PANEL Chloride Lvl 105 95 - 109 12/16 [facility] [address] CHEM PANEL CO2 31 24 - 32 12/[address] CHEM PANEL Calcium Lvl 8.2 8.5 - 10.5 12/16 [facility] as [address] CHEM PANEL AGAP 7.4 10.0 - 12/16 [facility] 20.0 2019 [facility] CHEM PANEL eGFR 74 12/16 Result [facility] Comment: The Medical eGFR is Center [...] PANEL Magnesium 1.9 1.8 - 2.4 12/16 [facility] Lvl /[address] [place] [address] CHEM PANEL Phosphorus 2.8 2.5 - 4.5 12/[address] HEMATOLOGY WBC 8.9 3.7 - 10.4 12/[address] HEMATOLOGY RBC 3.03 4.20 - 12/16 [place] 5.40 [facility] HEMATOLOGY Hgb 9.3 12.0 - 12/16 [place] 16.0 /2019 [facility] HEMATOLOGY Hct 28.4 36.0 - 12/16 [place] 48.0 /2019 [facility] HEMATOLOGY MCV 93.8 80.0 - 12/16 [place] 98.0 /2019 [facility] HEMATOLOGY MCH 30.7 27.0 - 12/16 [place] 31.0 /2019 [facility] HEMATOLOGY MCHC 32.8 32.0 - 12/16 [place] 36.0 /2019 [facility] HEMATOLOGY RDW 16.9 11.5 - 18 [place] 14.5 /2019 [facility] HEMATOLOGY Platelet 197 133 - 450 12/[address] HEMATOLOGY MPV 9.7 7.4 - 10.4 12/[address] HEMATOLOGY Segs 71.0 45.0 - 12/16 [place] 75.0 /2019 [facility] HEMATOLOGY Lymphocytes 16.3 20.0 - 18 [place] 40.0 /2020 [facility] HEMATOLOGY Monocytes 6.5 2.0 - 12.0 12/[address] HEMATOLOGY Eosinophils 4.0 0.0 - 4.0 [place] [facility] HEMATOLOGY Basophils 2.2 0.0 - 1.0 12/[address] HEMATOLOGY Neutrophils 6.3 1.5 - 8.1 12/16 [facility] /2019 [facility] HEMATOLOGY Lymphocytes 1.4 1.0 - 5.5 12/16 [facility]2019 [facility] HEMATOLOGY Monocytes # 0.6 0.0 - 0.8 12/[address] HEMATOLOGY Eosinophils 0.4 0.0 - 0.5 12/16 [facility] /2019 [facility] HEMATOLOGY Basophils # 0.2 0.0 - 0.2 12/[address] CARDIAC Troponin-I 0.03 0.00 - 12/14 [facility] ENZYMES 0.40 [facility] CHEM PANEL Glucose Lvl 155 70 - 99 12/[address] CHEM PANEL BUN 12 7 - 22 12/[address] CHEM PANEL Creatinine 0.59 0.50 - 12/14 [facility] 1.40 2019 [facility] CHEM PANEL Sodium Lvl 142 135 - 145 12/[address] CHEM PANEL Potassium 3.9 3.5 - 5.1 12/[address] CHEM PANEL Chloride Lvl 103 95 - 109 12/[address] CHEM PANEL CO2 34 24 - 32 12/[address] CHEM PANEL Calcium Lvl 8.3 8.5 - 10.5 12/[address] CHEM PANEL AGAP 8.9 10.0 - 12/14 [facility] 20.0 2019 [facility] CHEM PANEL eGFR 92 12/14 Result [place] [id number] Comment: The Medical eGFR is Center calculated [...] PANEL Magnesium 2.1 1.8 - 2.4 12/14 [facility] Lvl /[address] [place] [address] CHEM PANEL Phosphorus 2.4 2.5 - 4.5 12/[address] HEMATOLOGY WBC 11.9 3.7 - 10.4 12/[address] HEMATOLOGY RBC 3.25 4.20 - 12/14 [place] 5.40 /2019 [facility] HEMATOLOGY Hgb 9.5 12.0 - 12/14 [facility] 16.0 /2019 [facility] HEMATOLOGY Hct 30.4 36.0 - 12/14 [place] 48.0 /[address] [place] [address] HEMATOLOGY MCV 93.5 80.0 - 12/14 [place] 98.0 /[address] [place] [address] HEMATOLOGY MCH 29.3 27.0 - 12/14 [place] 31.0 /[address] [place] [address] HEMATOLOGY MCHC 31.4 32.0 - 12/14 [place] 36.0 /[address] [place] [address] HEMATOLOGY RDW 17.3 11.5 - 12/14 [place] 14.5 /[address] [place] [address] HEMATOLOGY Platelet 193 133 - 450 12/[address] HEMATOLOGY MPV 10.2 7.4 - 10.4 12/[address] HEMATOLOGY Segs 69.3 45.0 - 12/14 [place] 75.0 /[address] [place] [address] HEMATOLOGY Lymphocytes 18.5 20.0 - 12/14 [place] 40.0 /2020 [facility] HEMATOLOGY Monocytes 7.6 2.0 - 12.0 12/[address] HEMATOLOGY Eosinophils 3.8 0.0 - 4.0 12/14 [facility] /[address] [place] [address] HEMATOLOGY Basophils 0.8 0.0 - 1.0 12/[address] HEMATOLOGY Neutrophils 8.3 1.5 - 8.1 12/14 [place] # /[address] [place] [address] HEMATOLOGY Lymphocytes 2.2 1.0 - 5.5 12/14 [place] # /[address] [place] [address] HEMATOLOGY Monocytes # 0.9 0.0 - 0.8 12/14 [place] /[address] [place] [address] HEMATOLOGY Eosinophils 0.5 0.0 - 0.5 12/14 [place] # /2019 [facility] HEMATOLOGY Basophils # 0.1 0.0 - 0.2 12/14 [facility] /2020 [facility] HEMATOLOGY RBC Morph Normal Normal 12/13 [facility] (12/14/19 6:58 AM) /2019 [facility] [place] HEMATOLOGY Plt Morph Normal Normal 12/13 [facility] (12/14/19 6:58 AM) /2019 [facility] [place] CHEM PANEL Total 5.2 6.4 - 8.4 12/10 [facility] Protein /[address] [place] [address] CHEM PANEL Albumin Lvl 2.2 3.5 - 5.0 12/10 [facility] /2019 [facility] CHEM PANEL ALT 22 0 - 65 12/[address] CHEM PANEL AST 13 0 - 37 12/[address] CHEM PANEL Alk Phos 251 39 - 136 12/[address] CHEM PANEL Bili Total 0.9 0.2 - 1.3 12/[address] CHEM PANEL B/C Ratio 25 6 - 25 12/[address] CHEM PANEL Globulin 3.0 2.7 - 4.2 12/[address] CHEM PANEL A/G Ratio 0.7 0.7 - 1.6 12/[address] BODY FLUIDS Cris Occult Positive Negative 12/08 [facility] Bld *ABN* /2019 [facility] (12/09/19 12:45 PM) Cente r HEMATOLOGY RBC Morph Normal Normal 12/08 [facility] (12/09/19 11:46 AM) /2019 [facility] [place] HEMATOLOGY Plt Morph Normal Normal 12/08 [facility] (12/09/19 11:46 AM) /2019 [facility] [place] CHEM PANEL Total 4.5 6.4 - 8.4 12/06 [facility] Protein /[address] [place] [address] CHEM PANEL Albumin Lvl 2.5 3.5 - 5.0 12/06 [facility] /[address] [place] [address] CHEM PANEL ALT 27 0 - 65 12/[address] CHEM PANEL AST 11 0 - 37 12/[address] CHEM PANEL Alk Phos 82 39 - [address] CHEM PANEL Bili Total 0.8 0.2 - 1.3 12/[address] CHEM PANEL Bili Direct 0.3 0.0 - 0.3 07/08 [place]2019 [facility] CHEM PANEL Bili 0.5 0.0 - 1.0 12/06 [facility] Indirect /2019 [facility] CHEM PANEL Globulin 2.0 2.7 - 4.2 12/06 [facility] /[address] [place] [address] CHEM PANEL A/G Ratio 1.2 0.7 - 1.6 12/06 [facility] /[address] [place] [address] PARATHYROID Ca Ion WB 1.05 1.05 - 12/06 [facility] PROFILE [address] [place] [address] PARATHYROID Ca Norm WB 1.09 1.05 - 12/06 [facility] PROFILE 1.25 [facility] HEMATOLOGY PTT 31.1 22.9 - 12/05 [place] 35.8 [facility] HEMATOLOGY PT 15.3 12.0 - 12/05 [facility] 14.7 [facility] HEMATOLOGY INR 1.20 0.85 - 12/05 [facility] 1.17 [facility] PARATHYROID Ca Ion WB 1.06 1.05 - 12/05 [facility] PROFILE [address] [place] [address] PARATHYROID Ca Norm WB 1.10 1.05 - 12/05 [facility] PROFILE . [facility] BLOOD BANK RBC product Product available 12/04 [facility] RESULTS (12/05/19 5:53 PM) /[address] [place] [address] HEMATOLOGY Plt Morph See Note 1 Normal 12/04 Result [facility] (12/05/19 5:43 PM) /2019 Comment: Mary Beth forde [facility] platelets are seen HEMATOLOGY Anisocyte 1+ None Seen 12/04 [facility] *ABN* /2019 [facility] (12/05/19 5:43 PM) [place] BLOOD BANK RBC product Product available 12/04 [facility] RESULTS (12/05/19 5:21 PM) /2019 [facility] BLOOD BANK Antibody Negative 12/04 [facility] RESULTS Scrn (12/05/19 1:02 AM) /2019 [facility] BLOOD BANK ABO/Rh O POS 12/04 [facility] RESULTS /2019 [facility] BLOOD BANK BB Note Result Note 5 12/04 Result [facility] RESULTS (12/05/19 1:02 AM) /2019 Comment: Medica l 12/05/2019 [place] 15:15 LIPETERS
Blood available, notified Alyx Weston in [place] 2 at 0305 by lp. HEMATOLOGY PT 12.8 12.0 - 12/04 [place] 14.7 [facility] HEMATOLOGY INR 0.96 0.85 - 12/04 [facility] 1.17 /2019 [facility] HEMATOLOGY PTT 28.3 22.9 - 12/04 [facility] 35.8 [facility] CHEM PANEL Glucose Lvl 146 70 - 99 07 [facility] CHEM PANEL BUN 16 7 - 22 07 [facility] CHEM PANEL Creatinine 0.75 0.50 - 11/30 [facility] CHEM PANEL Sodium Lvl 142 135 - 145 07 [facility]2019 [facility] CHEM PANEL Potassium 3.7 3.5 - 5.1 07/ [facility] CHEM PANEL Chloride Lvl 106 95 - 109 07 [facility] CHEM PANEL CO2 29 24 - 32 11/30 [facility]2019 [facility] CHEM PANEL Calcium Lvl 8.3 8.5 - 10.5 11/30 [facility] as [facility] CHEM PANEL AGAP 10.7 10.0 - 11/30 [facility] 20.0 [facility] CHEM PANEL eGFR 80 11/30 [facility] Comment: The Medical eGFR is Center [...] HEMATOLOGY WBC 11.0 3.7 - 10.4 07/ [facility] HEMATOLOGY RBC 4.45 4.20 - 07/ [facility] 5.40 [facility] HEMATOLOGY Hgb 13.7 12.0 - 07/ [facility] 16.0 [facility] HEMATOLOGY Hct 41.0 36.0 - 07/ [facility] 48.0 /[address] [place] [address] HEMATOLOGY MCV 92.1 80.0 - 11/30 [facility] 98.0 /[address] [place] [address] HEMATOLOGY MCH 30.7 27.0 - 07 [facility] 31.0 /2019 [facility] HEMATOLOGY MCHC 33.4 32.0 - / [facility] 36.0 /[address] [place] [address] HEMATOLOGY RDW 16.7 11.5 - 11/30 [facility] 14.5 /[address] [place] [address] HEMATOLOGY Platelet 173 133 - [address] HEMATOLOGY MPV 9.6 7.4 - 10.4 11/[address] HEMATOLOGY Segs 67.9 45.0 - 07 [facility] 75.0 /[address] [place] [address] HEMATOLOGY Lymphocytes 20.7 20.0 - 11/30 [facility] 40.[address] HEMATOLOGY Monocytes 9.8 2.0 - 12.0 11/[address] HEMATOLOGY Eosinophils 0.7 0.0 - 4.0 11/[address] HEMATOLOGY Basophils 0.9 0.0 - 1.0 11/[address] HEMATOLOGY Neutrophils 7.4 1.5 - 8.1 11/[address] HEMATOLOGY Lymphocytes 2.3 1.0 - 5.5 11/[address] HEMATOLOGY Monocytes # 1.1 0.0 - 0.8 11/[address] HEMATOLOGY Eosinophils 0.1 0.0 - 0.5 11/[address] HEMATOLOGY Basophils # 0.1 0.0 - 0.2 11/[address] URINE AND UA Color Light Yellow Yellow 11/30 [facility] STOOL *NA* /[address] [place] [address] (11/30/19 8:14 PM) [place] URINE AND UA Turbidity Clear Clear 11/30 [facility] (11/30/19 8:14 PM) [address] URINE AND UA Spec Grav 1.012 <=1.030 11/[address] URINE AND UA pH 7.0 5.0 - 8.0 11/[address] URINE AND UA Protein Negative Negative 11/30 [facility] STOOL mg/dL mg/dL /[address] [place] [address] URINE AND UA Ketones 20 mg/dL Negative 11/30 [facility] mg/dL /[address] [place] [address] URINE AND UA Bili Negative Negative 11/30 [facility] *NA* /2019 [facility] (11/30/19 8:14 PM) Center URINE AND UA Blood Small Negative 11/30 [facility] *ABN* /2019 [facility] (11/30/19 8:14 PM) [place] URINE AND UA <1.0 0.1 - 1.0 11/30 [facility] Urobilinogen /[address] [place] [address] URINE AND UA Nitrite Negative Negative 11/30 [facility] (11/30/19 8:14 PM) /[address] [place] [address] URINE AND UA Leuk Est Negative Negative 11/30 [facility] (11/30/19 8:14 PM) /[address] [place] [address] URINE AND UA Sq Epi Occasional Few /LPF 11/30 [facility] /LPF /[address] [place] [address] URINE AND UA WBC <1 0 - 5 11/[address] URINE AND UA RBC 1 0 - 2 11/[address] URINE AND UA Bacteria Occasional None Seen 11/30 [place] STOOL /HPF /HPF /[address] [place] [address] URINE AND UA Mucus Few /LPF None Seen 11/30 [facility] /LPF /[address] [place] [address] URINE AND UA Glucose 50mg/dl 11/[address] CHEM PANEL Glucose Lvl 116 70 - 99 11/[address] CHEM PANEL BUN 22 7 - 22 11/[address] CHEM PANEL Creatinine 0.83 0.50 - 11/29 [facility] 1.40 /[address] [place] [address] CHEM PANEL Sodium Lvl 140 135 - 145 11/[address] CHEM PANEL Potassium 5.3 3.5 - 5.1 11/29 Result [facility] Comment: Medical Specimen Center Grossly Hemolyzed. CHEM PANEL Chloride Lvl 105 95 - 109 07 [facility] [address] CHEM PANEL CO2 28 24 - 32 11/[address] CHEM PANEL Calcium Lvl 7.8 8.5 - 10.5 11/[address] CHEM PANEL AGAP 12.3 10.0 - 07 [facility] 20.[address] CHEM PANEL eGFR 71 07 Result [place] [id number] Comment: The Medical eGFR is Center calculated [...] WBC 10.6 3.7 - 10.4 07/ [address] HEMATOLOGY RBC 4.40 4.20 - 07 [place] 5.40 /2019 [facility] HEMATOLOGY Hgb 13.0 12.0 - 07 [place] 16.0 /2019 [facility] HEMATOLOGY Hct 40.0 36.0 - 07 [place] 48.0 /2019 [facility] HEMATOLOGY MCV 91.0 80.0 - 07/ [place] 98.0 /2019 [facility] HEMATOLOGY MCH 29.5 27.0 - 07/ [place] 31.0 [facility] HEMATOLOGY MCHC 32.4 32.0 - 07/ [place] 36.0 [facility] HEMATOLOGY RDW 16.5 11.5 - 07/ [place] 14.5 [facility] HEMATOLOGY Platelet 153 133 - 450 07/ [address] HEMATOLOGY MPV 10.0 7.4 - 10.4 / 52 [address] HEMATOLOGY PT 13.3 12.0 - 07/ [place] 14.7 /2019 [facility] HEMATOLOGY INR 1.01 0.85 - 07/ [place] 1.17 [facility] HEMATOLOGY PTT 29.5 22.9 - 07/ [place] 35.8 /2019 [facility] HEMATOLOGY Segs 59.5 45.0 - 07/01 [place] 75.0 /2020 [facility] HEMATOLOGY Lymphocytes 29.2 20.0 - 07/01 [place] 40.0 /2020 [facility] HEMATOLOGY Monocytes 9.3 2.0 - 12.0 11/[address] HEMATOLOGY Eosinophils 1.0 0.0 - 4.0 11/[address] HEMATOLOGY Basophils 1.0 0.0 - 1.0 11/[address] HEMATOLOGY Neutrophils 6.3 1.5 - 8.1 11/[address] HEMATOLOGY Lymphocytes 3.1 1.0 - 5.5 11/29 [facility]2019 [facility] HEMATOLOGY Monocytes # 1.0 0.0 - 0.8 11/[address] HEMATOLOGY Eosinophils 0.1 0.0 - 0.5 11/[address] HEMATOLOGY Basophils # 0.1 0.0 - 0.2 11/[address] BLOOD BANK ABO/Rh O POS 11/28 [facility] RESULTS [address] BLOOD BANK Antibody Negative 11/28 [facility] RESULTS Scrn (11/29/19 4:04 AM) [facility] CHEM PANEL Glucose Lvl 97 70 - 99 11/[address] CHEM PANEL BUN 26 7 - 22 11/[address] CHEM PANEL Creatinine 0.90 0.50 - 11/28 [facility] 2019 [facility] CHEM PANEL Sodium Lvl 140 135 - 145 11/[address] CHEM PANEL Potassium 3.9 3.5 - 5.1 11/[address] CHEM PANEL Chloride Lvl 106 95 - 109 11/[address] CHEM PANEL CO2 32 24 - 32 11/[address] CHEM PANEL Calcium Lvl 8.7 8.5 - 10.5 11/[address] CHEM PANEL AGAP 5.9 10.0 - 11/28 [facility] 20.0 2019 [facility] CHEM PANEL eGFR 64 11/28 [place] [id number] Comment: The Medical eGFR is Center calculated [...] 13.6 12.0 - 11/28 [place] 14.7 /2019 [facility] HEMATOLOGY INR 1.04 0.85 - 11/28 [place] 1.17 [facility] HEMATOLOGY PTT 30.9 22.9 - 11/28 [place] 35.8 /2019 [facility] HEMATOLOGY WBC 10.6 3.7 - 10.4 11/[address] HEMATOLOGY RBC 4.50 4.20 - 11/28 [place] 5.40 /2019 [facility] HEMATOLOGY Hgb 13.5 12.0 - 11/28 [place] 16.0 /2019 [facility] HEMATOLOGY Hct 40.4 36.0 - 11/28 [place] 48.0 /2019 [facility] HEMATOLOGY MCV 89.8 80.0 - 11/28 [place] 98.0 /2019 [facility] HEMATOLOGY MCH 30.0 27.0 - 11/28 [place] 31.0 /2019 [facility] HEMATOLOGY MCHC 33.4 32.0 - 11/28 [place] 36.0 /2019 [facility] HEMATOLOGY RDW 16.7 11.5 - 11/28 [facility] 14.5 /2019 [facility] HEMATOLOGY Platelet 155 133 - 450 11/[address] HEMATOLOGY MPV 9.5 7.4 - 10.4 11/[address] HEMATOLOGY Segs 65.7 45.0 - 30 [place] 75.0 /[address] [place] [address] HEMATOLOGY Lymphocytes 24.6 20.0 - 30 [place] 40.0 2020 [facility] HEMATOLOGY Monocytes 8.2 2.0 - 12.[address] HEMATOLOGY Eosinophils 0.8 0.0 - 4.0 11[place] [facility] HEMATOLOGY Basophils 0.7 0.0 - 1.[address] HEMATOLOGY Neutrophils 6.9 1.5 - 8.1 06/30 [facility] # /2019 [facility] HEMATOLOGY Lymphocytes 2.6 1.0 - 5.5 11/28 [facility] # /2019 [facility] HEMATOLOGY Monocytes # 0.9 0.0 - 0.8 11/28 [facility] /2020 [facility] HEMATOLOGY Eosinophils 0.1 0.0 - 0.5 11/28 [facility] # /2019 [facility] HEMATOLOGY Basophils # 0.1 0.0 - 0.2 11/28 [facility] /2019 [facility] IMMUNOLOGY Coronavirus Not Detected Not 11/26 [place] (COVID-19) (11/27/19 4:00 PM) Detected [facility] CHEM PANEL Glucose Lvl 137 70 - 99 11/[address] CHEM PANEL BUN 24 7 - 22 11/[address] CHEM PANEL Creatinine 0.60 0.50 - 11/26 [facility] Lvl 1.40 [facility] CHEM PANEL Sodium Lvl 143 135 - 145 11/[address] CHEM PANEL Potassium 3.4 3.5 - 5.1 11/26 [facility] [place] [address] CHEM PANEL Chloride Lvl 107 95 - 109 11/26 [facility] CHEM PANEL CO2 29 24 - 32 11/[address] CHEM PANEL Calcium Lvl 8.3 8.5 - 10.5 11/26 [facility] /2019 [facility] CHEM PANEL AGAP 10.4 10.0 - 11/26 [facility] 20.0 [facility] CHEM PANEL eGFR 91 11/26 Result Comment: [...] WBC 10.2 3.7 - 10.4 11/[address] HEMATOLOGY RBC 4.57 4.20 - 11/26 [facility] 5.40 [facility] HEMATOLOGY Hgb 13.6 12.0 - 11/26 [facility] 16.0 [facility] HEMATOLOGY Hct 41.4 36.0 - 11/26 [facility] 48.0 2019 [facility] HEMATOLOGY MCV 90.4 80.0 - 11/26 [facility] 98.0 [facility] HEMATOLOGY MCH 29.8 27.0 - 11/26 [facility] 31.0 [facility] HEMATOLOGY MCHC 32.9 32.0 - 11/26 [facility] 36.0 2019 [facility] HEMATOLOGY RDW 16.7 11.5 - 11/26 [facility] 14.5 2019 [facility] HEMATOLOGY Platelet 146 133 - 450 11/[address] HEMATOLOGY MPV 9.8 7.4 - 10.4 11/[address] LIPIDS Trig 167 <=149 11/24 [facility] mg/dL [address] LIPIDS Chol 151 <=199 11/24 [facility] mg/dL [address] LIPIDS HDL 50 >=61 mg/dL 11/[address] LIPIDS CHD Risk 3.02 3.90 - 11/24 [facility] 5.[address] LIPIDS LDL 68 <=99 mg/dL 11/24 [facility] (Calculated) [address] LIPIDS VLDL 33 11/[address] SPECIAL Hgb A1C 8.5 <=5.6 % 11/24 [facility] CHEMISTRY [address] HEMATOLOGY Anti-Xa Low 0.45 11/24 [facility] Molecular [address] [facility] CHEM PANEL Glucose Lvl 132 70 - 99 11/[address] CHEM PANEL BUN 19 7 - 22 11/[address] CHEM PANEL Creatinine 0.76 0.50 - 11/23 [facility] Lvl 1.[address] [place] [address] CHEM PANEL Sodium Lvl 141 135 - 145 11/[address] CHEM PANEL Potassium 3.7 3.5 - 5.1 11/23 [facility] /[address] [place] [address] CHEM PANEL Chloride Lvl 108 95 - 109 11/23 [facility] CHEM PANEL CO2 27 24 - 32 11/[address] CHEM PANEL AGAP 9.7 10.0 - 11/23 [facility] 20.0 [facility] CHEM PANEL Calcium Lvl 8.7 8.5 - 10.5 11/23 [facility] as [facility] CHEM PANEL eGFR 79 11/23 Result Comment: [...] BMI. HEMATOLOGY Segs 90.7 45.0 - 11/23 [facility] 75.0 [facility] HEMATOLOGY Lymphocytes 6.4 20.0 - 11/23 [facility] 40.0 [facility] HEMATOLOGY Monocytes 2.1 2.0 - 12.0 11/[address] HEMATOLOGY Eosinophils 0.3 0.0 - 4.0 11/23 [facility] /2019 [facility] HEMATOLOGY Basophils 0.5 0.0 - 1.0 11/[address] HEMATOLOGY Neutrophils 15.1 1.5 - 8.1 11/23 [facility] # [facility] HEMATOLOGY Lymphocytes 1.1 1.0 - 5.5 11/23 [facility] # /2019 [facility] HEMATOLOGY Monocytes # 0.3 0.0 - 0.8 11/23 [facility] [address] HEMATOLOGY Basophils # 0.1 0.0 - 0.2 11/23 [facility] /2019 [facility] HEMATOLOGY WBC 16.7 3.7 - 10.4 11/[address] HEMATOLOGY RBC 5.00 4.20 - 11/23 [place] 5.40 [facility] HEMATOLOGY Hgb 15.1 12.0 - 11/23 [facility] 16.0 [facility] HEMATOLOGY Hct 45.1 36.0 - 11/23 [facility] 48.0 [facility] HEMATOLOGY MCV 90.2 80.0 - 11/23 [facility] 98.0 [facility] HEMATOLOGY MCH 30.1 27.0 - 11/23 [facility] 31.0 [facility] HEMATOLOGY MCHC 33.4 32.0 - 11/23 [facility] 36.0 [facility] HEMATOLOGY RDW 16.3 11.5 - 11/23 [facility] 14.5 [facility] HEMATOLOGY Platelet 148 133 - 450 11/23 [facility]2019 [facility] HEMATOLOGY MPV 9.6 7.4 - 10.4 11/[address] CHEM PANEL Glucose Lvl 375 70 - 99 11/[address] CHEM PANEL BUN 18 7 - 22 11/[address] CHEM PANEL Creatinine 0.96 0.50 - 11/22 [facility] Lvl 1.40 [facility] CHEM PANEL Sodium Lvl 137 135 - 145 11/[address] CHEM PANEL Potassium 4.3 3.5 - 5.1 11/22 [facility] /2019 [facility] CHEM PANEL Chloride Lvl 105 95 - 109 11/22 [facility] CHEM PANEL CO2 26 24 - 32 11/[address] CHEM PANEL AGAP 10.3 10.0 - 11/22 [facility] 20.0 [facility] CHEM PANEL Calcium Lvl 8.8 8.5 - 10.5 11/22 [facility] as [facility] CHEM PANEL eGFR 59 11/22 [facility] Comment: The Medical eGFR is Center [...] 81.3 45.0 - 11/22 [place] 75.0 /2019 [facility] HEMATOLOGY Lymphocytes 11.5 20.0 - 11/22 [place] 40.0 /2019 [facility] HEMATOLOGY Monocytes 5.4 2.0 - 12.0 11/[address] HEMATOLOGY Eosinophils 0.8 0.0 - 4.0 11/[address] HEMATOLOGY Basophils 1.0 0.0 - 1.0 11/[address] HEMATOLOGY Neutrophils 15.8 1.5 - 8.1 11/[place] # /2020 [facility] HEMATOLOGY Lymphocytes 2.2 1.0 - 5.5 11/22 [facility] # /[address] [place] [address] HEMATOLOGY Monocytes # 1.1 0.0 - 0.8 11/22 [facility] /[address] [place] [address] HEMATOLOGY Eosinophils 0.2 0.0 - 0.5 11/22 [facility] # /[address] [place] [address] HEMATOLOGY Basophils # 0.2 0.0 - 0.2 11/22 [facility] /[address] [place] [address] HEMATOLOGY WBC 19.4 3.7 - 10.4 11/[address] HEMATOLOGY RBC 5.40 4.20 - 11/22 [place] 5.40 /2019 [facility] HEMATOLOGY Hgb 16.1 12.0 - 11/22 [place] 16.0 /2019 [facility] HEMATOLOGY Hct 49.1 36.0 - 11/22 [place] 48.0 /2019 [facility] HEMATOLOGY MCV 91.0 80.0 - 11/22 [place] 98.0 /2019 [facility] HEMATOLOGY MCH 29.9 27.0 - 11/22 [place] 31.0 /2019 [facility] HEMATOLOGY MCHC 32.9 32.0 - 11/22 [place] 36.0 /2020 [facility] HEMATOLOGY RDW 16.7 11.5 - 11/22 [place] 14.5 /2019 [facility] HEMATOLOGY Platelet 168 133 - 450 11/[address] HEMATOLOGY MPV 9.8 7.4 - 10.4 11/[address] CARDIAC Troponin-I 0.04 0.00 - 11/22 [facility] ENZYMES 0.40 [facility] CHEM PANEL Lactic Acid 1.7 0.5 - 2.2 11/[address] IMMUNOLOGY Coronavirus Not Detected Not 11/21 [place] (COVID-19[place] (11/22/19 11:05 AM) Detected /2019 edical [facility] CHEM PANEL Lactic Acid 2.6 0.5 - 2.2 11/21 [facility]2019 [facility] URINE AND UA Color Veronique Yellow 11/21 [facility] STOOL *ABN* /2019 [facility] (11/22/19 7:20 AM) [place] URINE AND UA Turbidity Slight Clear 11/21 [facility] *ABN* /[address] [place] [address] (11/22/19 7:20 AM) [place] URINE AND UA Spec Grav 1.035 <=1.030 11/[address] URINE AND UA pH 5.0 5.0 - 8.0 11/[address] URINE AND UA Protein 30 mg/dL Negative 11/21 [facility] STOOL mg/dL /[address] [place] [address] URINE AND UA Ketones Negative Negative 11/21 [facility] mg/dL mg/dL /[address] [place] [address] URINE AND UA Bili Negative Negative 11/21 [facility] STOOL *NA* /2019 [facility] (11/22/19 7:20 AM) [place] URINE AND UA Blood Negative Negative 11/21 [facility] (11/22/19 7:20 AM) [facility] URINE AND UA 2.0 0.1 - 1.0 11/21 [facility] Urobilinogen /[address] [place] [address] URINE AND UA Nitrite Negative Negative 11/21 [facility] (11/22/19 7:20 AM) [facility] URINE AND UA Leuk Est Negative Negative 11/21 [facility] (11/22/19 7:20 AM) [facility] URINE AND UA WBC 1 0 - 5 11/21 [facility] /[address] [place] [address] URINE AND UA RBC 7 0 - 2 11/[address] URINE AND UA Mucus Few /LPF None Seen 11/21 [facility] STOOL /LPF /[address] [place] [address] URINE AND UA Hyal Cast 4 0 - 2 11/21 [facility] URINE AND UA Sq Epi None Seen 11/21 [facility] URINE AND UA Glucose 50mg/dl 11/21 [facility]2019 [facility] HEMATOLOGY PT 12.4 12.0 - 11/21 [facility] 14.7 [facility] HEMATOLOGY INR 0.92 0.85 - 11/21 [facility] 1.17 [facility] HEMATOLOGY PTT 25.1 22.9 - 11/21 [place] 35.8 [facility] HEMATOLOGY ACT (TEG) 89 86 - 118 11/21 [facility] HEMATOLOGY [place] 0.3 11/21 [facility] HEMATOLOGY R-time Rapid 0.4 0.4 - 0.7 11/21 [facility] HEMATOLOGY K-time Rapid 1.3 0.6 - 2.3 11/21 [facility]2019 [facility] HEMATOLOGY Angle Rapid 75 64 - 80 11/[address] HEMATOLOGY Max 64 52 - 71 11/21 [facility] [place] [facility] HEMATOLOGY G-value 9.0 5.0 - 11.6 11/21 [facility] [place] [facility] HEMATOLOGY Estimated % 0.0 0.0 - 7.5 11/[place] [facility] HEMATOLOGY RBC Morph Normal Normal 11/21 [facility] (11/22/19 6:40 AM) [facility] HEMATOLOGY Plt Morph Normal Normal 11/21 [facility] (11/22/19 6:40 AM) /2019 [facility] HEMATOLOGY Segs 77.5 45.0 - 11/21 [facility] 75.0 [facility] HEMATOLOGY Lymphocytes 14.2 20.0 - 11/21 [place] 40.0 [facility] HEMATOLOGY Monocytes 6.8 2.0 - 12.0 11/[address] HEMATOLOGY Eosinophils 0.2 0.0 - 4.0 11/[place]2019 [facility] HEMATOLOGY Basophils 1.3 0.0 - 1.0 11/[address] HEMATOLOGY Neutrophils 16.9 1.5 - 8.1 11/21 [place] # /2019 [facility] HEMATOLOGY Lymphocytes 3.1 1.0 - 5.5 11/21 [place] # /2019 [facility] HEMATOLOGY Monocytes # 1.5 0.0 - 0.8 11/21 [facility] /[address] [place] [address] HEMATOLOGY Eosinophils 0.1 0.0 - 0.5 11/21 [facility] # [facility] HEMATOLOGY Basophils # 0.3 0.0 - 0.2 11/21 [facility] [address] HEMATOLOGY Large Plt Slight 11/[address] BLOOD BANK ABO/Rh O POS 11/21 [facility] RESULTS /[address] [place] [address] BLOOD BANK Antibody Negative 11/21 [facility] RESULTS Scrn (11/22/19 5:56 AM) [facility] CARDIAC Total CK 840 12 - 191 11/21 [facility] ENZYMES /[address] [place] [address] CARDIAC Troponin-I 0.05 0.00 - 11/21 [facility] ENZYMES 0.40 [facility] CHEM PANEL Total 5.8 6.4 - 8.4 11/21 [facility] Protein [address] CHEM PANEL Albumin Lvl 2.4 3.5 - 5.0 11/21 [facility] [address] CHEM PANEL ASPARTATE 355 0 - 37 11/21 [facility] TRANSAMINASE [address] CHEM PANEL Alk Phos 102 39 - 136 11/[address] CHEM PANEL Bili Total 1.2 0.2 - 1.3 11/[address] CHEM PANEL Bili Direct 0.3 0.0 - 0.3 11/[address] CHEM PANEL Bili 0.9 0.0 - 1.0 11/21 [facility] Indirect [address] CHEM PANEL Globulin 3.4 2.7 - 4.2 11/[address] CHEM PANEL A/G Ratio 0.7 0.7 - 1.6 11/[address] CHEM PANEL ALT 155 0 - 65 11/[address] HEMATOLOGY Segs 60.1 45.0 - 03/04 [place] 75.0 [facility] HEMATOLOGY Lymphocytes 32.3 20.0 - 10 [place] 40.0 [facility] HEMATOLOGY Monocytes 5.9 2.0 - 12.0 03/[address] HEMATOLOGY Eosinophils 0.7 0.0 - 4.0 03/[address] HEMATOLOGY Basophils 1.0 0.0 - 1.0 03/[address] HEMATOLOGY Neutrophils 4.3 1.5 - 8.1 03/04 [place] # /2019 [facility] HEMATOLOGY Lymphocytes 2.3 1.0 - 5.5 03/04 [place] # /2019 [facility] HEMATOLOGY Monocytes # 0.4 0.0 - 0.8 03/04 [place]2018 [facility] HEMATOLOGY Basophils # 0.1 0.0 - 0.2 03/04 [facility] /2018 [facility] HEMATOLOGY Sed Rate 2 0 - 20 03/04 [facility] HEMATOLOGY WBC 7.2 3.7 - 10.4 03/04 [facility] HEMATOLOGY RBC 3.76 4.20 - 03/04 [place] 5.40 /2019 [facility] HEMATOLOGY Hgb 12.1 12.0 - 03/04 [place] 16.0 2019 [facility] HEMATOLOGY Hct 36.8 36.0 - 03/04 [facility] 48.0 2019 [facility] HEMATOLOGY MCV 97.9 80.0 - 03/04 [facility] 98.0 /2019 [facility] HEMATOLOGY MCH 32.1 27.0 - 03/04 [place] 31.0 /2019 [facility] HEMATOLOGY MCHC 32.8 32.0 - 03/04 [place] 36.0 2019 [facility] HEMATOLOGY RDW 16.7 11.5 - 03/04 [place] 14.5 2019 [facility] HEMATOLOGY Platelet 131 133 - 450 03/04 [facility] HEMATOLOGY MPV 8.9 7.4 - 10.4 03/04 [facility] IMMUNOLOGY C-REACTIVE <2.9 <=2.9 mg/L 03/04 [place] [facility] BLOOD BANK ABO/Rh O POS 02/26 [facility] RESULTS /2018 [facility] BLOOD BANK Antibody Negative 02/26 [facility] RESULTS Scrn (02/26/19 7:49 AM) [facility] HEMATOLOGY Segs 67.8 45.0 - 02/25 [place] 75.0 /2019 [facility] HEMATOLOGY Lymphocytes 22.9 20.0 - 02/25 [place] 40.0 2019 [facility] HEMATOLOGY Monocytes 7.8 2.0 - 12.0 02/25 [facility] HEMATOLOGY Eosinophils 0.4 0.0 - 4.0 02/[place] [facility] HEMATOLOGY Basophils 1.1 0.0 - 1.0 02/25 [place] [facility] HEMATOLOGY Neutrophils 6.3 1.5 - 8.1 02/25 [place] # /2018 [facility] HEMATOLOGY Lymphocytes 2.1 1.0 - 5.5 02/25 [place] # /2018 [facility] HEMATOLOGY Monocytes # 0.7 0.0 - 0.8 02/25 [facility] HEMATOLOGY Basophils # 0.1 0.0 - 0.2 02/25 [facility] HEMATOLOGY Macrocyte 1+ None Seen 02/25 [facility] *ABN* /2018 [facility] (02/25/19 4:11 AM) [place] HEMATOLOGY WBC 9.2 3.7 - 10.4 02/25 [facility] HEMATOLOGY RBC 3.50 4.20 - 02/25 [facility] 5.40 [facility] HEMATOLOGY Hgb 11.5 12.0 - 02/25 [facility] 16.0 [facility] HEMATOLOGY Hct 35.5 36.0 - 02/25 [facility] 48.0 [facility] HEMATOLOGY MCV 101.5 80.0 - 02/25 [facility] 98.0 [facility] HEMATOLOGY MCH 32.7 27.0 - 02/25 [facility] 31.0 [facility] HEMATOLOGY MCHC 32.2 32.0 - 02/25 [facility] 36.0 [facility] HEMATOLOGY RDW 17.4 11.5 - 02/25 [facility] 14.5 [facility] HEMATOLOGY Platelet 120 133 - 450 02/25 [facility] HEMATOLOGY MPV 9.2 7.4 - 10.4 02/25 [facility] CHEM PANEL Glucose Lvl 143 70 - 99 02/22 [facility] CHEM PANEL BUN 20 7 - 22 02/22 [facility] CHEM PANEL Creatinine 0.89 0.50 - 02/22 [facility] Lvl 1.40 [facility] CHEM PANEL Sodium Lvl 143 135 - 145 02/22 [facility]2018 [facility] CHEM PANEL Potassium 4.3 3.5 - 5.1 02/22 [facility] CHEM PANEL Chloride Lvl 107 95 - 109 02/22 [facility] CHEM PANEL CO2 27 24 - 32 02/22 [facility]2018 [facility] CHEM PANEL AGAP 13.3 10.0 - 02/22 [facility] 20.0 [facility] CHEM PANEL Calcium Lvl 8.9 8.5 - 10.5 02/22 [facility] CHEM PANEL eGFR 65 02/22 Result Comment: [...] Segs 63.7 45.0 - 02/22 [place] 75.0 [facility] HEMATOLOGY Lymphocytes 26.8 20.0 - 02/22 [place] 40.0 [facility] HEMATOLOGY Monocytes 8.0 2.0 - 12.0 02/22 [facility] HEMATOLOGY Eosinophils 0.4 0.0 - 4.0 02/22 [facility] HEMATOLOGY Basophils 1.1 0.0 - 1.0 02/22 [facility] HEMATOLOGY Neutrophils 6.4 1.5 - 8.1 02/22 [facility] HEMATOLOGY Lymphocytes 2.7 1.0 - 5.5 02/22 [facility] HEMATOLOGY Monocytes # 0.8 0.0 - 0.8 02/22 [facility] HEMATOLOGY Basophils # 0.1 0.0 - 0.2 02/22 [facility] HEMATOLOGY WBC 10.1 3.7 - 10.4 02/22 [facility] HEMATOLOGY RBC 3.93 4.20 - 02/22 [place] 5.40 [facility] HEMATOLOGY Hgb 12.7 12.0 - 02/22 [place] 16.0 [facility] HEMATOLOGY Hct 38.8 36.0 - 02/22 [facility] [place] 48.0 /2019 [facility] HEMATOLOGY MCV 98.9 80.0 - 02/22 98.0 [facility] HEMATOLOGY MCH 32.4 27.0 - 02/22 31.0 [facility] HEMATOLOGY MCHC 32.7 32.0 - 02/22 36.0 [facility] HEMATOLOGY RDW 17.3 11.5 - 02/22 14.5 [facility] HEMATOLOGY Platelet 189 133 - 450 02/22 [facility] HEMATOLOGY MPV 9.8 7.4 - 10.4 02/22 [facility] CHEM PANEL Glucose Lvl 95 70 - 99 02/21 [facility] CHEM PANEL BUN 18 7 - 22 02/21 [facility] CHEM PANEL Creatinine 0.77 0.50 - 02/21 [facility] Lvl 1.40 [facility] CHEM PANEL Sodium Lvl 143 135 - 145 02/21 [facility] CHEM PANEL Potassium 4.1 3.5 - 5.1 02/21 Result [facility] Comment: [facility] Slightly Hemolyzed. CHEM PANEL Chloride Lvl 109 95 - 109 02/21 [facility] CHEM PANEL CO2 26 24 - 32 02/21 [facility] CHEM PANEL Calcium Lvl 8.5 8.5 - 10.5 02/21 [place] [facility] CHEM PANEL eGFR 78 02/21 Result Comment: [...] CHEM PANEL AGAP 12.1 10.0 - 02/21 [facility] 20.0 [facility] CHEM PANEL Magnesium 2.0 1.8 - 2.4 02/[address] CHEM PANEL Phosphorus 3.5 2.5 - 4.5 02/[address] ELECTROLYTE AGAP 11.1 10.0 - 02/19 [facility] 20.0 [facility] ELECTROLYTE Glucose Lvl 73 70 - 99 02/[address] ELECTROLYTE BUN 21 7 - 22 02/[address] ELECTROLYTE Creatinine 0.66 0.50 - 02/19 [facility] Lvl 1.40 [facility] ELECTROLYTE Sodium Lvl 140 135 - 145 02/19 [facility] ELECTROLYTE Potassium 4.1 3.5 - 5.1 02/[address] ELECTROLYTE Chloride Lvl 107 95 - 109 02/19 [facility] [facility] ELECTROLYTE CO2 26 24 - 32 02/[address] ELECTROLYTE Calcium Lvl 8.6 8.5 - 10.5 02/19 [place] [facility]2018 [facility] ELECTROLYTE Albumin Lvl 2.1 3.5 - 5.0 02/19 [facility]2018 [facility] ELECTROLYTE Phosphorus 3.0 2.5 - 4.5 02/[address] ELECTROLYTE eGFR 88 02/19 [facility] Comment: The Medical eGFR is Center [...] HEMATOLOGY Eosinophils 0.1 0.0 - 0.5 02/19 [facility] CHEM PANEL Magnesium 2.4 1.8 - 2.4 02/[address] CHEM PANEL Phosphorus 5.0 2.5 - 4.5 02/[address] HEMATOLOGY Bands 0.0 0.0 - 11.0 02/[address] HEMATOLOGY Myelocytes 2.0 <=0.0 % 02/[address] HEMATOLOGY Atypical 0.0 <=0.0 % 02/[address] HEMATOLOGY NRBC 1 02/[address] HEMATOLOGY Plt Morph Normal Normal 02/18 [facility] (02/18/19 3:45 AM) 2018 [facility] HEMATOLOGY Macrocyte 1+ None Seen 02/18 [facility] (02/18/19 3:45 AM) [place] HEMATOLOGY Polychrom Slight 02/[address] TOXICOLOGY Vanco Tr 18.8 02/[address] TOXICOLOGY Vanco Tr TND 2200 02/[address] HEMATOLOGY Bands 1.0 0.0 - 11.0 02/[address] HEMATOLOGY Metamyelocyt 2.0 0.0 - 1.0 02/[address] HEMATOLOGY Myelocytes 3.0 <=0.0 % 02/[address] HEMATOLOGY Atypical 0.0 <=0.0 % 02/[address] HEMATOLOGY Eosinophils 0.2 0.0 - 0.5 02/15 [facility] [address] [place] [address] HEMATOLOGY Bands 0.0 0.0 - 11.0 02/[address] HEMATOLOGY Metamyelocyt 1.0 0.0 - 1.0 02/[address] HEMATOLOGY Myelocytes 1.0 <=0.0 % 02/[address] HEMATOLOGY Atypical 0.0 <=0.0 % 02/[address] HEMATOLOGY Anisocyte 2+ None Seen 02/15 [facility] (02/15/19 11:09 AM) Cente r HEMATOLOGY Macrocyte 1+ None Seen 02/15 [facility] *ABN* /2019 Medical (02/15/19 11:09 AM) Cente r HEMATOLOGY Eosinophils 0.4 0.0 - 0.5 02[place] /2018 [facility] HEMATOLOGY Anisocyte 1+ None Seen 02/13 [facility] *ABN* /2018 Medical (02/13/19 5:40 AM) Center HEMATOLOGY Polychrom Slight 02/13 [facility] HEMATOLOGY Large Plt Slight 02/13 [facility] IMMUNOLOGY C-REACTIVE 96.6 <=2.9 mg/L 02/12 [facility] PROTEIN [facility] CHEM PANEL Lactic Acid 1.6 0.5 - 2.2 02/12 [facility] Lvl [facility] CHEM PANEL Lactic Acid 2.4 0.5 - 2.2 02/12 [facility] Lvl [facility] HEMATOLOGY Polychrom Slight 02/12 [facility] HEMATOLOGY Large Plt Slight 02/12 [facility] TOXICOLOGY Vanco Lvl 12.1 02/12 [facility] [address] [place] [address] TRIMETHOPRI Gram Stain Gram Stain 02/11 [facility] as M+SULFAMETH Report Performed Medical OXAZOLE:DESIRAE By: Center C:PT:ISOLAT [facility] E:ORDQN:MARIA TERESA [facility] TRIMETHOPRI Culture: Rare Proteus mirabilis 02/11 [facility] M+SULFAMETH Wound/Absces Many Enterococcus Species /2018 [...] C:PT:ISOLAT E:ORDQN:MARIA TERESA TRIMETHOPRI Proteus Proteus 02/11 [facility]+SULFAMETH mirabilis mirabilis /2019 Medical OXAZOLE:DESIARE Center C:PT:ISOLAT E:ORDQN:MARIA TERESA TOXICOLOGY Vanco Lvl 14.3 02/10 [facility] CHEM PANEL Lactic Acid 1.6 0.5 - 2.2 02/10 [place] [facility] CHEM PANEL Magnesium 2.1 1.8 - 2.4 02/09 [facility] HEMATOLOGY RBC Morph Normal Normal 02/09 [facility] (02/09/19 9:04 AM) [facility] HEMATOLOGY Plt Morph Normal Normal 02/09 [facility] (02/09/19 9:04 AM) [facility] PARATHYROID Ca Ion WB 1.06 1.05 - 02/09 [place] PROFILE 1. [facility] PARATHYROID Ca Norm WB 1.04 1.05 - 02/09 [facility] PROFILE . [facility] URINE AND UA Color Yellow Yellow 02/08 [facility] *NA* /2018 [facility] (02/08/19 3:55 AM) [place] URINE AND UA Turbidity Marked Clear 02/08 [facility] *ABN* [facility] (02/08/19 3:55 AM) [place] URINE AND UA Spec Grav 1.022 <=1.030 02/08 [facility] /2018 [facility] URINE AND UA pH 5.0 5.0 - 8.0 02/08 [facility] /2018 [facility] URINE AND UA Protein 100 mg/dL Negative 02/08 [facility] mg/dL [facility] URINE AND UA Glucose 500 mg/dL Negative 02/08 [facility] mg/dL [facility] URINE AND UA Ketones Negative Negative 02/08 [facility] mg/dL mg/dL [facility] URINE AND UA Bili Negative Negative 02/08 [facility] *NA* [facility] (02/08/19 3:55 AM) [place] URINE AND UA Blood Negative Negative 02/08 [facility] (02/08/19 3:55 AM) [facility] URINE AND UA <1.0 0.1 - 1.0 02/08 [facility] Urobilinogen /2018 [facility] URINE AND UA Nitrite Negative Negative 02/08 [facility] (02/08/19 3:55 AM) [facility] URINE AND UA Leuk Est Negative Negative 02/08 [facility] (02/08/19 3:55 AM) [facility] URINE AND UA Sq Epi Occasional Few /LPF 02/08 [facility] STOOL /LPF /2018 [facility] URINE AND UA WBC 13 0 - 5 02/08 [facility] STOOL /2018 [facility] URINE AND UA RBC 4 0 - 2 02/08 [facility] STOOL [facility] URINE AND UA Bacteria Occasional None Seen 02/[place] /HPF /HPF /2018 [facility] URINE AND UA Mucus Few /LPF None Seen 02/08 [facility] STOOL /LPF [address] [place] [address] URINE AND UA Hyal Cast 5 0 - 2 02/08 [facility] STOOL /2018 [facility] URINE AND UA Gran Cast 3-5 /LPF None Seen 02/08 [place] STOOL /LPF [facility] URINE CHEM U Sodium 30 02/08 [facility] URINE CHEM U Creatinine 135.00 02/08 [facility] [address] [place] [address] Culture: 10,000 - 02/08 [facility] Urine 50,000 [facility] CFU/mL Center Skin Era CARDIAC Troponin-I <0.02 0.00 - 02/08 [facility] ENZYMES 0.40 [facility] HEMATOLOGY Sed Rate 95 0 - 20 02/08 [facility] /2018 [facility] IMMUNOLOGY C-REACTIVE 81.9 <=2.9 mg/L 02/08 [place] PROTEIN [facility] PARATHYROID Ca Ion WB 1.19 1.05 - 02/08 [place] PROFILE 1. [facility] PARATHYROID Ca Norm WB 1.17 1. - 02/08 [facility] PROFILE . [facility] CHEM PANEL Osmolality 314 280 - 300 02/[address] URINE AND UA Ketones Trace Negative 02/08 [facility] STOOL mg/dL mg/dL [facility] PARATHYROID Ca Ion WB 1.08 1.05 - 02/07 [place] PROFILE . [facility] PARATHYROID Ca Norm WB 1.09 1.05 - 02/07 [facility] PROFILE . [facility] ANEMIA Vitamin B12 538 254 - 1320 02/06 [facility] STUDY Lvl /2018 [facility] ANEMIA Folate Lvl 16.9 >=3.0 02/06 [facility] STUDY ng/mL [facility] CHEM PANEL Ammonia 13.0 <=45.0 02/06 [facility] uMol/L /2018 [facility] CHEM PANEL VITAMIN B1 172.6 66.5 - 02/06 Result [facility] (THIAMINE) 200.0 Comment: This Medical WHOLE BLOOD test was Center developed and its performance characteristi cs
determ ined by [facility]. It has not been cleared or
approv ed by the Food and Drug Administratio n.
Perfor med At: BN [facility] [place]
[address] [place], [place] [id number]<br/ >Kosta Tucker MD Ph:[phone] IMMUNOLOGY Homocyst Tot 17.3 0.0 - 15.0 02/06 [place] [facility] IMMUNOLOGY MMA Qnt 179 0 - 378 02/[address] SPECIAL Hgb A1C 8.5 <=5.6 % 02/06 [facility] CHEMISTRY /2018 [facility] CARDIAC Troponin-I 0.03 0.00 - 02/05 [facility] ENZYMES 0.40 [facility] CARDIAC Total CK 200 12 - 191 02/05 [facility] ENZYMES [address] CARDIAC CK MB 1.5 0.5 - 3.6 02/05 [facility] ENZYMES [address] CARDIAC CK MB Index 0.8 0.0 - 2.5 02/05 [facility] ENZYMES [address] CHEM PANEL B/C Ratio 16 6 - 25 02/[address] CHEM PANEL Total 6.4 6.4 - 8.4 02/05 [facility] Protein [facility] CHEM PANEL Albumin Lvl 2.2 3.5 - 5.0 02/05 [place] [facility] CHEM PANEL Globulin 4.2 2.7 - 4.2 02/[address] CHEM PANEL A/G Ratio 0.5 0.7 - 1.6 02/[address] CHEM PANEL AST 184 0 - 37 02/[address] CHEM PANEL Alk Phos 330 39 - 136 02/[address] CHEM PANEL Bili Total 0.6 0.2 - 1.3 02/[address] CHEM PANEL ALT 103 0 - 65 02/[address] CHEM PANEL Vitamin D, 6.5 30.0 - 02/05 [facility] 25-OH, Total 100.0 [facility] URINE AND UA Color Dark Yellow Yellow 02/05 [facility] STOOL *NA* /2018 [facility] (02/05/19 2:43 PM) [place] URINE AND UA Turbidity Marked Clear 02/05 [facility] STOOL *ABN* /2018 [facility] (02/05/19 2:43 PM) Center URINE AND UA Spec Grav 1.022 <=1.030 02/05 [facility] STOOL /2018 [facility] Center URINE AND UA pH 6.0 5.0 - 8.0 02/05 [facility] STOOL /2018 [facility] Center URINE AND UA Protein 100 mg/dL Negative 02/05 [facility] STOOL mg/dL /2018 [facility] URINE AND UA Glucose 500 mg/dL Negative 02/05 [facility] STOOL mg/dL /2018 [facility] Center URINE AND UA Ketones Trace Negative 02/05 [facility] STOOL mg/dL mg/dL /2018 [facility] URINE AND UA Bili Negative Negative 02/05 [facility] STOOL *NA* /2018 [facility] (02/05/19 2:43 PM) Center URINE AND UA Blood Negative Negative 02/05 [facility] (02/05/19 2:43 PM) /2018 [facility] URINE AND UA 2.0 0.1 - 1.0 02/05 [facility] Urobilinogen /2018 [facility] URINE AND UA Nitrite Negative Negative 02/05 [facility] STOOL (02/05/19 2:43 PM) /2018 [facility] URINE AND UA Leuk Est Negative Negative 02/05 [facility] (02/05/19 2:43 PM) /2018 [facility] URINE AND UA Sq Epi Occasional Few /LPF 02/05 [facility] STOOL /LPF [facility] URINE AND UA WBC 4 0 - 5 02/05 [facility] STOOL /2018 [facility] URINE AND UA RBC 2 0 - 2 02/05 [facility] /2018 [facility] URINE AND UA Bacteria Few /HPF None Seen 02[place] /HPF /2018 [facility] Center URINE AND UA Mucus Few /LPF None Seen 02/05 [place] STOOL /LPF /2019 [facility] URINE AND UA Uric Ac Many /HPF None Seen 02[place]05 [place] STO[place] /HPF /2018 [facility] HEMATOLOGY Neutrophils 12.0 1.5 - 8.1 01/09 [place] # /2019 [facility] Center HEMATOLOGY Lymphocytes 2.2 1.0 - 5.5 01/09 [place] # /2019 [facility] Center HEMATOLOGY Monocytes # 0.8 0.0 - 0.8 01/09 [place] /2019 [facility] HEMATOLOGY Segs 78.0 45.0 - 01/09 [place] 75.0 /2018 Medical Center HEMATOLOGY Bands 0.0 0.0 - 11.0 01/09 [facility] HEMATOLOGY Lymphocytes 14.0 20.0 - 01/09 [place] 40.0 [facility] HEMATOLOGY Monocytes 5.0 2.0 - 12.0 01/09 [facility]2018 [facility] HEMATOLOGY Metamyelocyt 1.0 0.0 - 1.0 01/09 [place] [facility] HEMATOLOGY Myelocytes 2.0 <=0.0 % 01/09 [facility] HEMATOLOGY Atypical 0.0 <=0.0 % 01/09 [facility] Lymphs [facility] HEMATOLOGY NRBC 3 01/09 [facility] HEMATOLOGY Anisocyte 1+ None Seen 01/09 [facility] (01/09/19 5:01 AM) [place] HEMATOLOGY Macrocyte 1+ None Seen 01/09 [facility]* [facility] (01/09/19 5:01 AM) [place] HEMATOLOGY Polychrom Moderate None Seen 01/09 [facility]* [facility] (01/09/19 5:01 AM) [place] HEMATOLOGY Large Plt slight 01/09 [facility] HEMATOLOGY WBC 15.4 3.7 - 10.4 01/09 [facility] HEMATOLOGY RBC 2.79 4.20 - 01/09 [facility] 5.40 [facility] HEMATOLOGY Hgb 9.6 12.0 - 01/09 [facility] 16.0 [facility] HEMATOLOGY Hct 29.3 36.0 - 01/09 [facility] 48.0 [facility] HEMATOLOGY MCV 104.8 80.0 - 01/09 [facility] 98.0 [facility] HEMATOLOGY MCH 34.5 27.0 - 01/09 [place] 31.0 2019 [facility] HEMATOLOGY MCHC 32.9 32.0 - 01/09 [place] 36.0 [facility] HEMATOLOGY RDW 22.7 11.5 - 01/09 [facility] 14.5 [facility] HEMATOLOGY Platelet 119 133 - 450 01/09 [facility]2018 [facility] HEMATOLOGY MPV 9.8 7.4 - 10.4 01/[address] CHEM PANEL Glucose Lvl 79 70 - 99 01/[address] CHEM PANEL BUN 27 7 - 22 01/[address] CHEM PANEL Creatinine 0.77 0.50 - 01/07 [facility] Lvl 1.40 /2018 [facility] CHEM PANEL Sodium Lvl 142 135 - 145 01/07 [facility] CHEM PANEL Potassium 4.2 3.5 - 5.1 01/07 [facility] CHEM PANEL Chloride Lvl 106 95 - 109 01/07 [facility] CHEM PANEL CO2 28 24 - 32 01/07 [facility] CHEM PANEL AGAP 12.2 10.0 - 08 [place] 20.0 [facility] CHEM PANEL Calcium Lvl 8.6 8.5 - 10.5 01/07 [facility] CHEM PANEL eGFR 78 01/07 [facility] Comment: The Medical eGFR is Center [...] not recommended in the following populations:< br/>
Tersea viduals with unstable creatinine concentration s, including [...] PANEL Magnesium 2.1 1.8 - 2.4 01/07 [facility] CHEM PANEL Phosphorus 3.7 2.5 - 4.5 01/07 [facility] HEMATOLOGY Neutrophils 14.2 1.5 - 8.1 01/07 [place] [facility] HEMATOLOGY Lymphocytes 6.1 1.0 - 5.5 01/07 [place] # /2018 [facility] HEMATOLOGY Monocytes # 0.4 0.0 - 0.8 01/07 [facility] HEMATOLOGY Basophils # 0.2 0.0 - 0.2 01/07 [facility] HEMATOLOGY Segs 67.0 45.0 - 01/07 [place] 75.0 [facility] HEMATOLOGY Bands 0.0 0.0 - 11.0 01/07 [facility] HEMATOLOGY Lymphocytes 29.0 20.0 - 01/07 [facility] 40.0 [facility] HEMATOLOGY Monocytes 2.0 2.0 - 12.0 01/07 [facility]2018 [facility] HEMATOLOGY Basophils 1.0 0.0 - 1.0 01/07 [facility] [address] [place] [address] HEMATOLOGY Myelocytes 1.0 <=0.0 % 01/07 [facility] HEMATOLOGY Atypical 0.0 <=0.0 % 01/07 [facility] Lymphs [facility] HEMATOLOGY NRBC 2 01/07 [facility] HEMATOLOGY Plt Morph Normal Normal 01/07 [facility] (01/07/19 5:31 AM) /2018 [facility] HEMATOLOGY Anisocyte 1+ None Seen 01/07 [facility] (01/07/19 5:31 AM) [place] HEMATOLOGY Macrocyte 1+ None Seen 01/07 [facility] (01/07/19 5:31 AM) [place] HEMATOLOGY Polychrom Moderate None Seen 01/07 [facility] (01/07/19 5:31 AM) [place] HEMATOLOGY WBC 21.2 3.7 - 10.4 01/07 [facility] HEMATOLOGY RBC 2.83 4.20 - 01/07 [facility] 5.40 [facility] HEMATOLOGY Hgb 9.6 12.0 - 01/07 [facility] 16.0 [facility] HEMATOLOGY Hct 29.6 36.0 - 01/07 [facility] 48.0 [facility] HEMATOLOGY MCV 104.5 80.0 - 01/07 [facility] 98.0 [facility] HEMATOLOGY MCH 33.9 27.0 - 01/07 [facility] 31.0 2019 [facility] HEMATOLOGY MCHC 32.4 32.0 - 01/07 [facility] 36.0 2019 [facility] HEMATOLOGY RDW 19.9 11.5 - 01/07 [facility] 14.5 [facility] HEMATOLOGY Platelet 139 133 - 450 01/07 [facility]2018 [facility] HEMATOLOGY MPV 10.6 7.4 - 10.4 01/[address] CHEM PANEL Glucose Lvl 130 70 - 99 01/[address] CHEM PANEL BUN 27 7 - 22 01/06 [facility]2018 [facility] CHEM PANEL Creatinine 1.34 0.50 - 01/06 [place] Lvl 1.40 [facility] CHEM PANEL Sodium Lvl 145 135 - 145 01/06 [facility] CHEM PANEL Potassium 4.0 3.5 - 5.1 01/06 [facility] Lvl /2018 [facility] CHEM PANEL Chloride Lvl 106 95 - 109 01/06 [facility] CHEM PANEL CO2 27 24 - 32 01/06 [facility] CHEM PANEL Calcium Lvl 8.3 8.5 - 10.5 01/06 as [facility] CHEM PANEL eGFR 40 01/06 [facility] Comment: The Medical eGFR is Center [...] AGAP 16.0 10.0 - 08 [place] 20.0 [facility] HEMATOLOGY Segs 84.9 45.0 - 08 [facility] 75.0 [facility] HEMATOLOGY Lymphocytes 11.4 20.0 - 08 [place] 40.0 [facility] HEMATOLOGY Monocytes 2.9 2.0 - 12.0 01/06 [facility] HEMATOLOGY Eosinophils 0.2 0.0 - 4.0 01/[place]2018 [facility] HEMATOLOGY Basophils 0.6 0.0 - 1.0 01/06 [facility] HEMATOLOGY Neutrophils 12.0 1.5 - 8.1 01/06 [place] # /2018 [facility] HEMATOLOGY Lymphocytes 1.6 1.0 - 5.5 01/06 [facility] # /2019 [facility] HEMATOLOGY Monocytes # 0.4 0.0 - 0.8 01/06 [facility] s /2019 [facility] HEMATOLOGY Basophils # 0.1 0.0 - 0.2 01/06 [facility] s [facility] HEMATOLOGY Macrocyte 1+ None Seen 01/06 [facility] *ABN* /2018 Medical (01/06/19 2:41 PM) [place] HEMATOLOGY Polychrom slight 01/06 [facility] /2018 [facility] HEMATOLOGY WBC 14.1 3.7 - 10.4 01/06 [facility] /2019 [facility] HEMATOLOGY RBC 2.86 4.20 - 01/06 [facility] 5.40 /2019 [facility] HEMATOLOGY Hgb 9.7 12.0 - 01/06 [facility] 16.0 2019 [facility] HEMATOLOGY Hct 29.5 36.0 - 01/06 [facility] 48.0 /2019 [facility] HEMATOLOGY MCV 103.3 80.0 - 01/06 [facility] 98.0 /2019 [facility] HEMATOLOGY MCH 33.8 27.0 - 01/06 [facility] 31.0 /2019 [facility] HEMATOLOGY MCHC 32.7 32.0 - 01/06 [facility] 36.0 /2019 [facility] HEMATOLOGY RDW 20.1 11.5 - 01/06 [facility] 14.5 [facility] HEMATOLOGY Platelet 119 133 - 450 01/06 [facility] /2018 [facility] HEMATOLOGY MPV 10.2 7.4 - 10.4 01/[address] CARDIAC BNP 98 <=100 01/04 [facility] ENZYMES pg/mL [facility] ELECTROLYTE AGAP 12.0 10.0 - 08 [facility] 20.0 [facility] ELECTROLYTE Glucose Lvl 83 70 - 99 01/04 [facility] S /2019 [facility] ELECTROLYTE BUN 23 7 - 22 01/04 [facility] S /2019 [facility] ELECTROLYTE Creatinine 0.88 0.50 - 08 [facility] Lvl 1.40 [facility] ELECTROLYTE Sodium Lvl 140 135 - 145 01/04 [facility] S /2018 [facility] ELECTROLYTE Potassium 4.0 3.5 - 5.1 01/04 [facility] ELECTROLYTE Chloride Lvl 107 95 - 109 01/04 [facility] S /2019 [facility] ELECTROLYTE CO2 25 24 - 32 08/ [facility] /2019 [facility] ELECTROLYTE Calcium Lvl 8.5 8.5 - 10.5 01/04 [place] [facility] ELECTROLYTE eGFR 66 01/04 Result [facility] Comment: The Medical eGFR is Center [...] HEMATOLOGY Eosinophils 0.2 0.0 - 0.5 01/04 [facility] # [facility] HEMATOLOGY Bands 3.0 0.0 - 11.0 01/[address] HEMATOLOGY Eosinophils 1.0 0.0 - 4.0 01/04 [facility] [address] [place] [address] HEMATOLOGY Myelocytes 1.0 <=0.0 % 01/[address] HEMATOLOGY Atypical 0.0 <=0.0 % 01/04 [facility] Lymphs [address] [place] [address] HEMATOLOGY NRBC 9 01/[address] HEMATOLOGY Plt Morph Normal Normal 01/04 [facility] (01/04/19 12:50 PM) [facility] HEMATOLOGY Anisocyte 1+ None Seen 01/04 [facility] *ABN* [facility] (01/04/19 12:50 PM) [place] HEMATOLOGY Eosinophils 0.1 0.0 - 4.0 01/01 [facility] [address] [place] [address] HEMATOLOGY Basophils 0.7 0.0 - 1.0 01/[address] HEMATOLOGY Basophils # 0.2 0.0 - 0.2 01/[address] PARATHYROID Ca Ion WB 1.08 1.05 - 01/01 [place] PROFILE 1. [facility] PARATHYROID Ca Norm WB 1.04 1.05 - 01/01 [facility] PROFILE 06.25 [facility] HEMATOLOGY Metamyelocyt 3.0 0.0 - 1.0 12/31 [place] [facility] CHEM PANEL Magnesium 2.1 1.8 - 2.4 12/30 [facility] CHEM PANEL Phosphorus 2.7 2.5 - 4.5 12/[address] HEMATOLOGY Fibrinogen 463 230 - 510 12/30 [facility] HEMATOLOGY Eosinophils 0.1 0.0 - 0.5 12/[place] [facility] PARATHYROID Ca Ion WB 1.08 1.05 - 12/30 [facility] PROFILE . [facility] PARATHYROID Ca Norm WB 1.10 1.05 - 12/30 [facility] 06.25 [facility] CARDIAC Troponin-I 0.09 0.00 - 12/29 [facility] ENZYMES 0. [facility] CHEM PANEL Magnesium 2.0 1.8 - 2.4 12/29 [facility] CHEM PANEL Phosphorus 2.4 2.5 - 4.5 12/29 [facility] HEMATOLOGY Plt Morph Normal Normal 12/29 [facility] (12/29/18 12:04 AM) [facility] HEMATOLOGY INR 1.02 0.85 - 12/29 [facility] 06.17 [facility] HEMATOLOGY PT 13.2 12.0 - 12/29 [facility] 14.7 [facility] HEMATOLOGY PTT 31.0 22.9 - 12/29 [place] 35.8 [facility] HEMATOLOGY Fibrinogen 424 230 - 510 12/29 [facility] PARATHYROID Ca Ion WB 1.10 1.05 - 12/29 [facility] PROFILE . [facility] PARATHYROID Ca Norm WB 1.11 1.05 - 12/29 [facility] . [facility] CARDIAC Troponin-I 0.11 0.00 - 12/28 [place] ENZYMES 0. [facility] CHEM PANEL Total 4.7 6.4 - 8.4 12/28 [facility] Protein [facility] CHEM PANEL Albumin Lvl 2.8 3.5 - 5.0 12/[place] [facility] CHEM PANEL ALT 36 0 - 65 12/28 [facility] CHEM PANEL AST 18 0 - 37 12/28 [facility] CHEM PANEL Alk Phos 73 39 - 136 12/[address] CHEM PANEL Bili Total 0.7 0.2 - 1.3 12/28 [facility]2018 [facility] CHEM PANEL Bili Direct 0.2 0.0 - 0.3 12/28 [facility] CHEM PANEL Bili 0.5 0.0 - 1.0 12/28 [facility] CHEM PANEL Globulin 1.9 2.7 - 4.2 12/28 [facility] CHEM PANEL A/G Ratio 1.5 0.7 - 1.6 12/28 [facility] HEMATOLOGY Metamyelocyt 1.0 0.0 - 1.0 12/28 [facility] as es [facility] HEMATOLOGY INR 1.13 0.85 - 12/28 [facility] 1.17 [facility] HEMATOLOGY PT 14.3 12.0 - 12/28 [facility] 14.7 [facility] HEMATOLOGY PTT 35.5 22.9 - 12/28 [place] 35.8 [facility] SPECIAL Hgb A1C 11.1 <=5.6 % 12/28 [facility] CHEMISTRY [facility] URINE AND Occult Bld Negative Negative 12/27 [facility] STOOL Stl (12/27/18 6:12 AM) /2018 [facility] CARDIAC Troponin-I 0.06 0.00 - 12/27 [facility] ENZYMES 0.40 [facility] CHEM PANEL Total 4.7 6.4 - 8.4 12/27 [facility] Protein [facility] CHEM PANEL Albumin Lvl 3.5 3.5 - 5.0 12/27 [facility] CHEM PANEL ALT 30 0 - 65 12/27 [facility] [address] [place] [address] CHEM PANEL AST 11 0 - 37 12/[address] CHEM PANEL Alk Phos 55 39 - 136 12/[address] CHEM PANEL Bili Total 0.5 0.2 - 1.3 12/[address] CHEM PANEL Bili Direct 0.1 0.0 - 0.3 12/27 [facility] [address] [place] [address] CHEM PANEL Bili 0.4 0.0 - 1.0 12/27 [facility] Indirect [address] [place] [address] CHEM PANEL Globulin 1.2 2.7 - 4.2 12/27 [facility] CHEM PANEL A/G Ratio 2.9 0.7 - 1.6 12/27 [facility] HEMATOLOGY PT 15.8 12.0 - 12/27 [place] 14.7 [facility] HEMATOLOGY INR 1.29 0.85 - 12/27 [place] 1.17 [facility] HEMATOLOGY PTT 37.6 22.9 - 12/27 [place] 35.8 [facility] HEMATOLOGY Fibrinogen 241 230 - 510 12/27 [place] Lvl /2018 [facility] CHEM PANEL Total 5.1 6.4 - 8.4 12/26 [facility] Protein [facility] CHEM PANEL Albumin Lvl 3.1 3.5 - 5.0 12/26 [facility] CHEM PANEL Globulin 2.0 2.7 - 4.2 12/26 [facility]2018 [facility] CHEM PANEL A/G Ratio 1.6 0.7 - 1.6 12/[address] CHEM PANEL ALT 51 0 - 65 12/26 [facility]2018 [facility] CHEM PANEL AST 16 0 - 37 12/26 [facility]2018 [facility] CHEM PANEL Alk Phos 88 39 - 136 12/[address] CHEM PANEL Bili Total 0.4 0.2 - 1.3 12/26 [facility]2018 [facility] CHEM PANEL Bili Direct 0.2 0.0 - 0.3 12/26 [facility] CHEM PANEL Bili 0.2 0.0 - 1.0 12/26 [facility] Indirect [facility] URINE AND UA Color Light Yellow Yellow 12/25 [facility] STOOL *NA* /2018 [facility] (12/25/18 2:16 PM) [place] URINE AND UA Turbidity Slight Clear 12/25 [facility] STOOL *ABN* /2018 [facility] (12/25/18 2:16 PM) [place] URINE AND UA Spec Grav 1.013 <=1.030 12/25 [facility] STOOL [facility] URINE AND UA pH 5.0 5.0 - 8.0 12/25 [facility] STOOL [facility] URINE AND UA Protein Negative Negative 12/25 [facility] STOOL mg/dL mg/dL [facility] URINE AND UA Glucose 500 mg/dL Negative 12/25 [facility] STOOL mg/dL /2018 [facility] URINE AND UA Ketones Trace Negative 12/25 [facility] STOOL mg/dL mg/dL /2018 [facility] URINE AND UA Bili Negative Negative 12/25 [facility] STOOL *NA* Medical (12/25/18 2:16 PM) Center URINE AND UA Blood Negative Negative 12/25 [facility] (12/25/18 2:16 PM) [facility] URINE AND UA <1.0 0.1 - 1.0 12/25 [facility] Urobilinogen /2018 [facility] URINE AND UA Nitrite Negative Negative 12/25 [facility] (12/25/18 2:16 PM) [facility] URINE AND UA Leuk Est Negative Negative 12/25 [facility] (12/25/18 2:16 PM) /2018 [facility] URINE AND UA WBC 4 0 - 5 12/25 [facility] /2018 [facility] URINE AND UA RBC 1 0 - 2 12/25 [facility] /2018 [facility] URINE AND UA Sq Epi None Seen 12/25 [facility] /2018 [facility] CHEM PANEL Lactic Acid 1.8 0.5 - 2.2 12/25 [facility] HEMATOLOGY Thrombin 17.7 15.0 - 12/25 [facility] Time 21.2 [facility] HEMATOLOGY D-Dimer 2.84 12/25 [facility] /2018 [facility] BACTERIAL - MRSA by PCR Negative 12/25 [facility] (12/25/18 12:22 AM) /2018 [facility] CHEM PANEL Lactic Acid 2.3 0.5 - 2.2 12/25 [facility] DRUG SCREEN U Amph Scr Negative Negative 12/[place] *NA* Medical (12/25/18 12:22 AM) Cente r DRUG SCREEN U [place] Scr Negative Negative 12/25 [place] *[place]* Medical (12/25/18 12:22 AM) Cente r DRUG SCREEN U Benzodiaz Positive Negative 12/25 [facility] as Scr *ABN* Medical (12/25/18 12:22 [...] r DRUG SCREEN U Negative Negative 12/25 [facility] Phencyclidin *NA* Medical e Scr (12/25/18 12:22 AM) Cente r DRUG SCREEN UDS Note See Note 12/25 [facility] (12/25/18 12:22 AM) Medic al Center HEMATOLOGY Heparin Negative 7 Negative 12/25 Result [facility] Ab(SRIDEVI) (12/25/18 12:22 AM) Comment: Th is Medical assay detects Center heparin antibodies of IgG isotype. Antibodies of other isotypes have been reported to cause heparin-induc ed thrombocytope davey. Therefore, if there is a strong clinical suspicion of HIT, additional study with a serotonin release assay is recommented. HEMATOLOGY Pat Od Value 0.215 12/25 [facility] HEMATOLOGY Pos CO Value 0.400 12/25 [facility] URINE AND UA Color Veronique Yellow 12/25 [facility] STOOL *ABN* [facility] (12/25/18 12:22 AM) Cente r URINE AND UA Turbidity Slight Clear 12/25 [facility] STOOL *ABN* [facility] (12/25/18 12:22 AM) Cente r URINE AND UA Spec Grav 1.029 <=1.030 12/25 [facility] URINE AND UA pH 5.0 5.0 - 8.0 12/25 [facility] /2018 [facility] URINE AND UA Protein 100 mg/dL Negative 12/25 [facility] STOOL mg/dL /2018 [facility] URINE AND UA Glucose Negative Negative 12/25 [facility] STOOL mg/dL mg/dL /2018 [facility] URINE AND UA Ketones Trace Negative 12/25 [facility] STOOL mg/dL mg/dL /2018 [facility] URINE AND UA Bili Negative Negative 12/25 [facility] STOOL *NA* /2018 Medical (12/25/18 12:22 AM) Cente r URINE AND UA Blood Moderate Negative 12/25 [facility] STOOL *ABN* [facility] (12/25/18 12:22 AM) Cente r URINE AND UA 4.0 0.1 - 1.0 12/25 [facility] STOOL Urobilinogen /2018 [facility] URINE AND UA Nitrite Negative Negative 12/25 [facility] (12/25/18 12:22 AM) [facility] URINE AND UA Leuk Est Negative Negative 12/25 [facility] STOOL (12/25/18 12:22 AM) [facility] URINE AND UA Sq Epi Few /LPF Few /LPF 12/25 [facility] STOOL /2018 [facility] URINE AND UA WBC 3 0 - 5 12/25 [facility] /2018 [facility] URINE AND UA RBC 37 0 - 2 12/25 [facility] /2018 [facility] URINE AND UA Bacteria Occasional None Seen 12[place] /HPF /HPF [facility] URINE AND UA Mucus Few /LPF None Seen 12/25 [facility] STOOL /LPF /2018 [facility] URINE AND UA Renal Epi 23 <=0 /LPF 12/25 [facility] /2018 [facility] URINE AND UA Hyal Cast 1 0 - 2 12/25 [facility] /[address] [place] [address] VANCOMYCIN: Gram Stain Gram Stain 12/25 [place] SUSC:PT:ISO Report Performed Medical LATE:ORDQN: By: [facility] VANCOMYCIN: Culture: Moderate Staphylococ cus aureus , Upon Supplemental Testing, This Isolate Was Found To Be 12/25 [facility] SUSC:PT:ISO 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 Medical LATE:ORDQN: w/Gram Stain . [facility] Normal Respiratory Era Isolated VANCOMYCIN: Staphylococc Staphyloco 12/25 [facility] SUSC:PT:ISO us aureus ccus Medical LATE:ORDQN: aureus [facility] BLOOD BANK ABO/Rh O POS 12/24 [facility] RESULTS [facility] BLOOD BANK Antibody Negative 5 12/24 Result [facility] RESULTS Scrn (12/24/18 6:54 PM) Comment: Medic al 12/24/2018 Center 20:18 [id number]
Patient has antibodies. Allow extra time for additional crossmatches. CARDIAC Total CK 62 12 - 191 12/24 [facility] ENZYMES [facility] CHEM PANEL Ammonia 27.0 <=45.0 12/24 [facility] uMol/L /2018 [facility] CHEM PANEL Lactic Acid 5.0 0.5 - 2.2 12/24 Result [place] Lvl Comment: Medical Critical Center Result(s) called to Lisa Acharya at 12/24/2018 20:19 by fns. Read back OK. CHEM PANEL Procalcitoni 11.80 0.00 - 12/24 Result [facility] n Lvl 0. Comment: Medical CRITICAL [...] CHEM PANEL Creatinine 0.79 0.50 - 11/29 [facility] Lvl 1.40 [facility] CHEM PANEL Glucose Lvl 104 70 - 99 11/29 [facility] CHEM PANEL Potassium 4.2 3.5 - 5.1 11/29 [facility] CHEM PANEL BUN 19 7 - 22 11/29 [facility] CHEM PANEL Calcium Lvl 9.3 8.5 - 10.5 11/29 [facility] CHEM PANEL Sodium Lvl 140 135 - 145 11/29 [facility] CHEM PANEL CO2 30 24 - 32 11/29 [facility] CHEM PANEL Chloride Lvl 104 95 - 109 11/29 [facility] CHEM PANEL AGAP 10.2 10.0 - 11/29 [facility] 20.0 [facility] URINE AND UA WBC 0-2 /HPF None Seen 11/29 [facility] STOOL /HPF /2018 [facility] URINE AND UA Bacteria Few /HPF None Seen 11/29 [facility] STOOL /HPF /2018 [facility] URINE AND UA Sq Epi Moderate Few /LPF 11/29 [facility] STOOL /LPF /2018 [facility] URINE AND UA RBC None Seen 0 - 2 11/29 [facility] (11/29/18 10:09 AM) [facility] URINE AND UA Mucus Few /LPF None Seen 11/29 [facility] STOOL /LPF /2018 [facility] URINE AND UA CaOx Jagruti Moderate None Seen 11/29 [place] STOOL /HPF /HPF /2018 [facility] URINE AND UA 0.2 0.1 - 1.0 11/29 [facility] Urobilinogen /2018 [facility] URINE AND UA Blood Negative Negative 11/29 [facility] (11/29/18 10:09 AM) [facility] URINE AND UA Nitrite Negative Negative 11/29 [facility] (11/29/18 10:09 AM) [facility] URINE AND UA Bili Small Negative 11/29 [facility] *ABN* /2018 [facility] (11/29/18 10:09 AM) [place] URINE AND UA Leuk Est Negative Negative 11/29 [facility] (11/29/18 10:09 AM) /2018 [facility] URINE AND UA Protein 100 mg/dL Negative 11/29 [facility] mg/dL /2018 [facility] URINE AND UA pH 5.5 5.0 - 8.0 11/29 [facility] /2018 [facility] URINE AND UA Ketones Negative Negative 11/29 [facility] *NA* /2018 [facility] (11/29/18 10:09 AM) [place] URINE AND UA Glucose Negative Negative 11/29 [facility] (11/29/18 10:09 AM) [facility] URINE AND UA Color Yellow Yellow 11/29 [facility] *NA* /2018 [facility] (11/29/18 10:09 AM) [place] URINE AND UA Turbidity Slight Cloudy Clear 11/29 [facility] (11/29/18 10:09 AM) [facility] URINE AND UA Spec Grav >=1.030 <=1.030 11/29 [facility] *ABN* /2018 [facility] (11/29/18 10:09 AM) [place] HEMATOLOGY MPV 10.6 7.4 - 10.4 09/23 [place] /2018 [facility] HEMATOLOGY MCV 91.5 80.0 - 09/23 [place] 98.0 [facility] HEMATOLOGY Hct 42.9 36.0 - 09/23 [facility] [place] 48.0 [facility] HEMATOLOGY MCH 31.0 27.0 - 09/23 31.0 [facility] HEMATOLOGY RDW 14.1 11.5 - 09/23 14.5 [facility] HEMATOLOGY MCHC 33.8 32.0 - 09/23 36.0 [facility] HEMATOLOGY Platelet 128 133 - 450 09/23 2018 [facility] HEMATOLOGY Hgb 14.5 12.0 - 09/23 16.0 [facility] HEMATOLOGY WBC 10.8 3.7 - 10.4 09/23 [facility] HEMATOLOGY RBC 4.69 4.20 - 09/23 [place] 5.40 [facility] HEMATOLOGY Eosinophils 0.1 0.0 - 0.5 09/23 [facility] HEMATOLOGY Segs 70.7 45.0 - 09/23 [facility] 75.0 [facility] HEMATOLOGY Lymphocytes 21.8 20.0 - 09/23 [facility] 40.0 [facility] HEMATOLOGY Lymphocytes 2.4 1.0 - 5.5 09/23 [facility] HEMATOLOGY Neutrophils 7.6 1.5 - 8.1 09/23 [facility] HEMATOLOGY Monocytes # 0.7 0.0 - 0.8 09/23 [facility] HEMATOLOGY Monocytes 6.7 2.0 - 12.0 09/23 2018 [facility] HEMATOLOGY Basophils 0.3 0.0 - 1.0 09/23 2018 [facility] HEMATOLOGY Eosinophils 0.5 0.0 - 4.0 09/23 [facility] CHEM PANEL Magnesium 2.2 1.8 - 2.4 09/23 [facility] Lvl [facility] CHEM PANEL Phosphorus 3.0 2.5 - 4.5 09/23 [facility]2018 [facility] CHEM PANEL eGFR 69 09/23 Result Comment: [...] PANEL CO2 28 24 - 32 09/23 [facility] CHEM PANEL Sodium Lvl 141 135 - 145 09/23 [facility] CHEM PANEL Potassium 3.8 3.5 - 5.1 09/23 [facility] l [facility] CHEM PANEL Chloride Lvl 107 95 - 109 09/23 [facility] CHEM PANEL AGAP 9.8 10.0 - 09/23 20.0 [facility] CHEM PANEL Calcium Lvl 8.1 8.5 - 10.5 09/23 [facility] CHEM PANEL BUN 23 7 - 22 09/23 [facility] CHEM PANEL Creatinine 0.86 0.50 - 09/23 [place] Lvl 1.40 [facility] CHEM PANEL Glucose Lvl 43 70 - 99 09/23 Result Comment: Medical Critical Center Result(s) called to Mony Figueroa at 09/23/2018 08:35 by . Read back OK.
Reche cked HEMATOLOGY Hgb 14.6 12.0 - 09/23 16.0 [facility] HEMATOLOGY Hct 44.7 36.0 - 09/23 48.0 [facility] HEMATOLOGY RBC 4.85 4.20 - 09/23 5.40 [facility] HEMATOLOGY WBC 14.1 3.7 - 10.4 09/23 [facility] HEMATOLOGY MPV 10.9 7.4 - 10.4 09/23 [facility] HEMATOLOGY RDW 14.2 11.5 - 09/23 14.5 [facility] HEMATOLOGY Platelet 114 133 - 450 09/23 [facility] HEMATOLOGY MCV 92.2 80.0 - 09/23 [place] 98.0 [facility] HEMATOLOGY MCH 30.1 27.0 - 09/23 [facility] 31.0 [facility] HEMATOLOGY MCHC 32.6 32.0 - 09/23 [facility] 36.0 [facility] PARATHYROID Ca Norm WB 1.05 1.05 - 09/23 [facility] PROFILE 1. [facility] PARATHYROID Ca Ion WB 1.00 1.05 - 09/23 [facility] PROFILE 1. [facility] CHEM PANEL Bili Total 0.6 0.2 - 1.3 09/22 [facility] CHEM PANEL AST 35 0 - 37 09/22 [facility] CHEM PANEL Alk Phos 95 39 - 136 09/22 [facility] CHEM PANEL ALT 47 0 - 65 09/22 [facility] CHEM PANEL eGFR 52 09/22 [facility] Comment: The Medical eGFR is Center [...] Albumin Lvl 2.3 3.5 - 5.0 09/22 [facility] CHEM PANEL Total 7.1 6.4 - 8.4 09/22 [facility] Protein [facility] CHEM PANEL CO2 26 24 - 32 09/22 [facility]2018 [facility] CHEM PANEL Calcium Lvl 8.1 8.5 - 10.5 09/22 [facility] CHEM PANEL Chloride Lvl 102 95 - 109 09/22 [facility] CHEM PANEL Potassium 4.3 3.5 - 5.1 09/22 [facility] Lvl [facility] CHEM PANEL Sodium Lvl 135 135 - 145 09/22 [facility] CHEM PANEL Creatinine 1.07 0.50 - 09/22 [place] Lvl 1.40 /2018 [facility] CHEM PANEL Glucose Lvl 272 70 - 99 09/22 [facility] CHEM PANEL BUN 29 7 - 22 09/22 2018 [facility] CHEM PANEL Globulin 4.8 2.7 - 4.2 09/22 2018 [facility] CHEM PANEL A/G Ratio 0.5 0.7 - 1.6 09/22 [facility] CHEM PANEL B/C Ratio 27 6 - 25 09/22 2018 [facility] CHEM PANEL AGAP 11.3 10.0 - 09/22 [place] 20.0 [facility] HEMATOLOGY Monocytes 6.5 2.0 - 12.0 09/22 [facility] HEMATOLOGY Eosinophils 0.1 0.0 - 4.0 09/22 [facility] HEMATOLOGY Basophils 0.2 0.0 - 1.0 09/22 [facility] HEMATOLOGY Segs 73.8 45.0 - 09/22 [place] 75.0 [facility] HEMATOLOGY Lymphocytes 19.4 20.0 - 09/22 [place] 40.0 [facility] HEMATOLOGY Neutrophils 6.0 1.5 - 8.1 09/22 [place] # /2018 [facility] HEMATOLOGY Lymphocytes 1.6 1.0 - 5.5 09/22 [place] # /2018 [facility] HEMATOLOGY Monocytes # 0.5 0.0 - 0.8 09/22 [place] [facility] HEMATOLOGY MPV 11.3 7.4 - 10.4 09/22 [facility] HEMATOLOGY MCHC 33.1 32.0 - 09/22 [place] 36.0 2019 [facility] HEMATOLOGY RDW 14.0 11.5 - 09/22 [place] 14.5 [facility] HEMATOLOGY Platelet 106 133 - 450 09/22 [facility] HEMATOLOGY MCV 93.1 80.0 - 09/22 [place] 98.0 [facility] HEMATOLOGY Hct 44.2 36.0 - 09/22 [place] 48.0 2019 [facility] HEMATOLOGY MCH 30.8 27.0 - 09/22 [place] 31.0 2019 [facility] HEMATOLOGY RBC 4.74 4.20 - 09/22 [facility] [place] 5.40 [facility] HEMATOLOGY WBC 8.1 3.7 - 10.4 09/22 [facility] HEMATOLOGY Hgb 14.6 12.0 - 09/22 16. [facility] CHEM PANEL Phosphorus 3.3 2.5 - 4.5 09/18 [facility] CHEM PANEL Magnesium 2.0 1.8 - 2.4 09/18 [facility] CHEM PANEL eGFR 70 09/18 [facility] Comment: The Medical eGFR is Center [...] Calcium Lvl 8.7 8.5 - 10.5 09/18 [facility] CHEM PANEL Creatinine 0.84 0.50 - 09/18 [facility] Lvl 1.40 [facility] CHEM PANEL Sodium Lvl 142 135 - 145 09/18 [facility] CHEM PANEL BUN 32 7 - 22 09/18 [facility] CHEM PANEL Chloride Lvl 106 95 - 109 09/18 [facility] s [facility] CHEM PANEL CO2 32 24 - 32 09/18 2018 [facility] CHEM PANEL Potassium 3.9 3.5 - 5.1 09/18 [facility] CHEM PANEL Glucose Lvl 107 70 - 99 09/18 2018 [facility] CHEM PANEL AGAP 7.9 10.0 - 09/18 20. [facility] HEMATOLOGY Monocytes # 0.7 0.0 - 0.8 09/[place]2018 [facility] HEMATOLOGY Lymphocytes 1.7 1.0 - 5.5 09/18 [place] # /2018 [facility] Center HEMATOLOGY Neutrophils 6.0 1.5 - 8.1 09/18 [facility] # /2018 [facility] HEMATOLOGY Basophils 0.1 0.0 - 1.0 09/18 [facility] HEMATOLOGY Monocytes 8.5 2.0 - 12.0 09/18 [facility] HEMATOLOGY Lymphocytes 20.3 20.0 - 09/18 [place] 40.0 [facility] HEMATOLOGY Segs 71.1 45.0 - 09/18 [place] 75.0 [facility] HEMATOLOGY MCHC 33.8 32.0 - 09/18 [place] 36.0 [facility] HEMATOLOGY RDW 14.1 11.5 - 09/18 [place] 14.5 [facility] HEMATOLOGY MCH 31.2 27.0 - 09/18 [place] 31.0 [facility] HEMATOLOGY MCV 92.2 80.0 - 09/18 [place] 98.0 [facility] HEMATOLOGY Hct 44.7 36.0 - 09/18 [place] 48.0 2019 [facility] HEMATOLOGY RBC 4.85 4.20 - 09/18 [place] 5.40 [facility] HEMATOLOGY WBC 8.5 3.7 - 10.4 09/18 [facility] HEMATOLOGY Hgb 15.1 12.0 - 09/18 [place] 16.0 [facility] HEMATOLOGY MPV 11.8 7.4 - 10.4 09/18 [facility] HEMATOLOGY Platelet 81 133 - 450 09/18 [facility] PARATHYROID Ca Ion WB 1.09 1.05 - 09/18 [place] PROFILE 1. [facility] PARATHYROID Ca Norm WB 1.09 1.05 - 09/18 [facility] PROFILE . [facility] CHEM PANEL Magnesium 2.0 1.8 - 2.4 09/17 [facility] Lvl [facility] CHEM PANEL Calcium Lvl 8.6 8.5 - 10.5 09/17 [place] [facility] CHEM PANEL AGAP 6.4 10.0 - 09/17 [place] 20.0 [facility] CHEM PANEL eGFR 70 09/17 [facility] Comment: The Medical eGFR is Center [...] PANEL Potassium 3.4 3.5 - 5.1 09/17 [facility] Lvl [facility] CHEM PANEL Sodium Lvl 142 135 - 145 09/17 [facility] CHEM PANEL Chloride Lvl 104 95 - 109 09/17 [place] [facility] CHEM PANEL Creatinine 0.84 0.50 - 09/17 [facility] Lvl 1.40 [facility] CHEM PANEL CO2 35 24 - 32 09/17 [facility]2018 [facility] CHEM PANEL Glucose Lvl 112 70 - 99 09/17 [facility] CHEM PANEL BUN 37 7 - 22 09/17 2018 [facility] CHEM PANEL Phosphorus 2.6 2.5 - 4.5 09/17 [facility] HEMATOLOGY Platelet 71 133 - 450 09/17 [facility] HEMATOLOGY MCHC 33.1 32.0 - 09/17 [place] 36.0 [facility] HEMATOLOGY MPV 10.7 7.4 - 10.4 09/17 [facility] [place] HEMATOLOGY RDW 14.1 11.5 - 09/17 [place] 14.5 [facility] [place] HEMATOLOGY MCH 30.4 27.0 - 09/17 [place] 31.0 [facility] [place] HEMATOLOGY WBC 9.7 3.7 - 10.4 09/17 [facility]2018 [facility] [place] HEMATOLOGY MCV 92.0 80.0 - 09/17 [place] 98.0 [facility] [place] HEMATOLOGY Hct 44.7 36.0 - 09/17 [place] 48.0 [facility] [place] HEMATOLOGY RBC 4.86 4.20 - 09/17 [place] 5.40 /2018 [facility] [place] HEMATOLOGY Hgb 14.8 12.0 - 09/17 [place] 16.0 [facility] [place] HEMATOLOGY Lymphocytes 1.4 1.0 - 5.5 09/17 [facility] s # /2018 [facility] [place] HEMATOLOGY Neutrophils 7.6 1.5 - 8.1 09/17 [facility] s # /2018 [facility] [place] HEMATOLOGY Monocytes 7.0 2.0 - 12.0 09/17 [facility] [place] HEMATOLOGY Basophils 0.5 0.0 - 1.0 09/17 [facility] [place] HEMATOLOGY Lymphocytes 14.4 20.0 - 09/17 [place] 40.0 [facility] [place] HEMATOLOGY Monocytes # 0.7 0.0 - 0.8 09/17 [facility] s /2018 [facility] [place] HEMATOLOGY Segs 78.1 45.0 - 09/17 [facility] 75.0 [facility] [place] PARATHYROID Ca Ion WB 1.11 1.05 - 09/17 [facility] PROFILE 1. [facility] [place] PARATHYROID Ca Norm WB 1.14 1.05 - 09/17 [facility] PROFILE . [facility] [place] CHEM PANEL Magnesium 2.1 1.8 - 2.4 09/16 [facility] Lvl [facility] [place] CHEM PANEL Phosphorus 2.0 2.5 - 4.5 09/16 [facility] [place] ELECTROLYTE AGAP 8.1 10.0 - 09/16 [facility] S 20.0 [facility] [place] ELECTROLYTE eGFR 47 09/16 Result [facility] Comment: The Medical eGFR is Center [...] ELECTROLYTE CO2 33 24 - 32 09/16 [facility] [place] ELECTROLYTE Calcium Lvl 8.4 8.5 - 10.5 09/16 [place] /2018 [facility] [place] ELECTROLYTE Potassium 4.1 3.5 - 5.1 09/16 Result [facility] Lvl /2018 Comment: [facility] Center Moderately Hemolyzed. ELECTROLYTE Chloride Lvl 102 95 - 109 09/16 [facility] [place] ELECTROLYTE Sodium Lvl 139 135 - 145 09/16 [facility] S [facility] [place] ELECTROLYTE BUN 37 7 - 22 09/16 [facility]2018 [facility] [place] ELECTROLYTE Creatinine 1.17 0.50 - 09/16 [facility] Lvl 1.40 [facility] [place] ELECTROLYTE Glucose Lvl 302 70 - 99 09/16 [facility]2018 [facility] [place] HEMATOLOGY Platelet 77 133 - 450 09/16 2018 [facility] [place] HEMATOLOGY MCHC 33.5 32.0 - 09/16 [facility] 36.0 [facility] [place] HEMATOLOGY RDW 14.2 11.5 - 09/16 [facility] 14.5 [facility] [place] HEMATOLOGY MPV 11.1 7.4 - 10.4 09/16 [facility]2018 [facility] [place] HEMATOLOGY MCV 92.4 80.0 - 09/16 [facility] 98.0 [facility] [place] HEMATOLOGY MCH 31.0 27.0 - 09/16 [facility] 31.0 2019 [facility] [place] HEMATOLOGY Hct 41.6 36.0 - 09/16 [facility] 48.0 2019 [facility] [place] HEMATOLOGY RBC 4.50 4.20 - 09/16 [facility] 5.40 [facility] [place] HEMATOLOGY Hgb 14.0 12.0 - 09/16 [facility] 16.0 2019 [facility] [place] HEMATOLOGY WBC 10.6 3.7 - 10.4 09/16 [facility]2018 [facility] [place] HEMATOLOGY Neutrophils 8.8 1.5 - 8.1 09/16 [facility] [place] HEMATOLOGY Monocytes # 0.7 0.0 - 0.8 09/16 [facility] /2018 [facility] [place] HEMATOLOGY Basophils 0.3 0.0 - 1.0 09/[address] HEMATOLOGY Lymphocytes 1.0 1.0 - 5.5 09/16 [facility] [place] HEMATOLOGY Segs 83.3 45.0 - 09/16 [place] 75.0 [facility] [place] HEMATOLOGY Lymphocytes 9.9 20.0 - 09/16 [place] 40.0 [facility] [place] HEMATOLOGY Monocytes 6.5 2.0 - 12.0 09/16 [facility] [place] PARATHYROID Ca Norm WB 1.13 1.05 - 09/16 [place] PROFILE 1. [facility] [place] PARATHYROID Ca Ion WB 1.13 1.05 - 09/16 [facility] PROFILE 1. [facility] [place] URINE AND UA Renal Epi 3 <=0 /LPF 09/15 [facility] STOOL [facility] [place] URINE AND UA Bacteria Occasional None Seen 09[place]15 [place] /HPF /HPF [facility] [place] URINE AND UA Mucus Few /LPF None Seen 09/15 [facility] STOOL /LPF [facility] [place] URINE AND UA Hyal Cast 1 0 - 2 09/15 [facility] [place] URINE AND UA Amorph Occasional None Seen [place] /HPF /HPF [facility] URINE AND UA Protein 30 mg/dL Negative 09/15 [facility] mg/dL /2018 [facility] URINE AND UA pH 5.5 5.0 - 8.0 09/15 [facility] [place] URINE AND UA Glucose 250 Negative 09/15 [facility] *ABN* /2018 [facility] (09/15/18 5:04 PM) Center URINE AND UA Ketones Negative Negative 09/15 [facility] *NA* /2018 [facility] (09/15/18 5:04 PM) Center URINE AND UA WBC 5 0 - 5 09/15 [facility] [place] URINE AND UA RBC 4 0 - 2 09/15 [facility] STOOL [facility] [place] URINE AND UA Sq Epi Occasional Few /LPF 09/15 [facility] STOOL /LPF [facility] [place] URINE AND UA Leuk Est Negative Negative 09/15 [facility] (09/15/18 5:04 PM) Medica l Center URINE AND UA Blood Negative Negative 09/15 [facility] (09/15/18 5:04 PM) [facility] [place] URINE AND UA 0.2 0.1 - 1.0 09/15 [facility] Urobilinogen /2018 [facility] [place] URINE AND UA Nitrite Negative Negative 09/15 [facility] (09/15/18 5:04 PM) Medica l Center URINE AND UA Bili Negative Negative 09/15 [facility] STOOL *NA* /2018 Medical (09/15/18 5:04 PM) [place] URINE AND UA Spec Grav 1.025 <=1.030 09/15 [facility] STOOL [facility] [place] URINE AND UA Turbidity Clear Clear 09/15 [facility] STOOL (09/15/18 5:04 PM) [facility] URINE AND UA Color Yellow Yellow 09/15 [facility] STOOL *NA* Medical (09/15/18 5:04 PM) [place] IMMUNOLOGY Striated 1:320 Neg:<1:40 09/15 Result [facility] Muscle IgG Comment: Medical Performed At: [facility]
[address] [place], [place] [id number]<br/ >Kosta Tucker MD Ph:[phone] IMMUNOLOGY MuSK Auto Ab <1.0 09/14 Result [facility] Comment: Medical Reference Center Range:
Negative: [...] 0.
2. Yeny AVILEZ et al. PNAS 2013;110(22); [id number].< br/>3. Scot E et al. Neurology 2006;67:505-5 07.
This test was developed and its performance characteristi cs
determ ined by [facility]. It has not been cleared or approved
by the Food and Drug Administratio n.
Perfor med At: [facility] [employer] [facility]
[address] [place], [place] [id number]<br/ >Feliciano Alston MD Ph:[phone] BACTERIAL - MRSA by PCR Negative 09/14 [facility]OS[facility] SER[facility] (09/14/18 11:23 AM) /2018 [facility] IMMUNOLOGY ACHr Binding 1.25 0.00 - 09/14 Result [facility] Ab 0.24 Comment: [facility] Negative: 0.00 - 0.24
Borderline: 0.25 - 0.40
Positive: > 0.40
Perf ormed At: [facility]
[address] [place] [id number]<br/ >Kosta Tucker MD Ph:[phone] IMMUNOLOGY ACHr Block 42 0 - 25 09/14 Result [facility] Ab /2018 Comment: [facility] Negative: 0 - 25
Borderline: 26 - 30
Positive: >30

Results for this test are for research purposes
only by the assay's steel inspector. The performance<b r/>characteri stics of this product have not been
esta blished. Results should not be used as a
diagnos tic procedure without confirmation of the
diagn osis by another medically established<b r/>diagnostic product or procedure.&lt ;br/>Performe d At: [facility]
[address], [place] [id number]<br/ >Kosta Tucker MD Ph:[phone] HEMATOLOGY Eosinophils 0.1 0.0 - 0.5 09/13 [place] # /2018 [facility] Center HEMATOLOGY Basophils # 0.1 0.0 - 0.2 09/13 [place]2018 [facility] [place] HEMATOLOGY Eosinophils 1.1 0.0 - 4.0 09/13 [place]2018 [facility] [place] HEMATOLOGY Basophils # 0.1 0.0 - 0.2 09/13 [place] [facility] HEMATOLOGY Eosinophils 0.1 0.0 - 0.5 09/13 [place] # [facility] Center HEMATOLOGY Eosinophils 0.9 0.0 - 4.0 09/13 [place] /2018 [facility] [place] HEMATOLOGY PB Smear Peripheral 09/12 [facility] Path blood /2018 [facility] smear Center examinatio n; - Platelets are decreased with few giant forms. No platelet clump. - RBCs are normocytic ; no schistocyt e - Leukocytes show unremarkab le morphology ; few reactive lymphocyte s. Clinical correlatio n is suggested. CPT 57354 URINE AND UA Bacteria Occasional None Seen 09/12 [place] /HPF /HPF /2018 [facility] URINE AND UA <1.0 0.1 - 1.0 09/12 [facility] STOOL Urobilinogen /2018 [facility] URINE AND UA Ketones Trace Negative 09/12 [facility] STOOL *ABN* [facility] (09/12/18 11:27 AM) Cente r URINE AND UA Blood Small Negative 09/12 [facility] STOOL *ABN* [facility] (09/12/18 11:27 AM) Cente r URINE AND UA Bili Negative Negative 09/12 [facility] *NA* [facility] (09/12/18 11:27 AM) Cente r URINE AND UA Glucose 150mg/dl 09/12 [facility] STOOL /2018 [facility] URINE AND UA Protein 100 mg/dL Negative 09/12 [facility] STOOL mg/dL [facility] URINE AND UA Turbidity Slight Clear 09/12 [facility] STOOL *ABN* [facility] (09/12/18 11:27 AM) Cente r URINE AND UA pH 5.0 5.0 - 8.0 09/12 [facility] STOOL /[address] [place] [id number] URINE AND UA Spec Grav 1.018 <=1.030 09/12 [facility] STOOL [address] [place] [address] URINE AND UA Color Yellow Yellow 09/12 [facility] STOOL *NA* [facility] (09/12/18 11:27 AM) Cente r URINE AND UA Mucus Few /LPF None Seen 09/12 [facility] STOOL /LPF /[address] [place] [address] URINE AND UA Hyal Cast 4 0 - 2 09/12 [facility] STOOL /2018 [facility] URINE AND UA WBC 4 0 - 5 09/12 [facility] /2018 [facility] URINE AND UA Nitrite Negative Negative 09/12 [facility] (09/12/18 11:27 AM) [facility] URINE AND UA RBC 1 0 - 2 09/12 [facility] STOOL /2018 [facility] URINE AND UA Sq Epi Moderate Few /LPF 09/12 [facility] STOOL /LPF /2018 [facility] URINE AND UA Leuk Est Negative Negative 09/12 [facility] STOOL (09/12/18 11:27 AM) /2018 [facility] CHEM PANEL Bili Total 0.7 0.2 - 1.3 09/[address] CHEM PANEL Alk Phos 141 39 - 136 09/[address] CHEM PANEL Total 8.3 6.4 - 8.4 09/12 [facility] Protein [facility] CHEM PANEL AST 25 0 - 37 09/[address] CHEM PANEL ALT 34 0 - 65 09/[address] CHEM PANEL Albumin Lvl 2.7 3.5 - 5.0 09/12 [facility] s [facility] CHEM PANEL Globulin 5.6 2.7 - 4.2 09/[address] CHEM PANEL B/C Ratio 9 6 - 25 09/[address] CHEM PANEL A/G Ratio 0.5 0.7 - 1.6 09/12 [facility]2018 [facility] [place] HEMATOLOGY PTT 31.6 22.9 - 09/12 [place] 35.8 /2019 [facility] HEMATOLOGY PT 14.2 12.0 - 09/12 [place] 14.7 2019 [facility] HEMATOLOGY INR 1.12 0.85 - 09/12 [place] 1.17 [facility] HEMATOLOGY Eosinophils 2.4 0.0 - 4.0 09/12 [facility] s /2018 [facility] [place] HEMATOLOGY Eosinophils 0.2 0.0 - 0.5 09/12 [place] # [facility] HEMATOLOGY Basophils # 0.2 0.0 - 0.2 09/12 [facility] s /2018 [facility] [place] IMMUNOLOGY JAK2 (V617F) Comment 09/12 Result [facility] Director /2019 Comment: Medical Review [facility] , PhD
[facility], Molecular Oncology
[facility] Pathology<br/ >[place] [address]
<b r/>Performed At: [facility]
[address] [place], [place] [id number]< br/>Samara Cordova MD Ph:[phone] IMMUNOLOGY JAK2 (V617F) Comment 09/12 Result [facility] Comment: Medical
[facility] EJ, Sanchez LM, Javed PJ, et al. Acquired
mutation of the tyrosine kinase JAK2 in human
mye loproliferati ve disorders. Lancet. 2004Aug 17-;<br/ >365(1574):73 54-1061. Ankur Norman, jM V, [address] HANK. A
unique clonal JAK2 mutation leading to constitutive< br/>signaling causes polycythaemia vera. Nature. 2004Sep 26;
43 4(9817):1147- 1143.
Flora R, Marianne F, Lizbeth , et al. A gain-of-
function mutation of JAK2 in myeloprolifer ative disorders.
N Engl J Med. 2004Sep 26; 35217):1779- 1790. IMMUNOLOGY JAK2 (V617F) Comment 09/12 Result [facility] Mutation Qnt Comment: Medical Result NEGATIVE
[...] assay. IMMUNOLOGY JAK2 (V617F) Comment 09/12 Result [facility] Methodology /2018 Comment: Medical
[facility] genomic DNA was extracted and subjected to TaqMan
re al-time PCR amplification /detection. Two amplification
products per sample were monitored by real-time PCR using
winifred mers/probes specific to JAK2 wild type (WT) and JAK2
muta nt V617F. The [id number] Absolute Quantitation software
will compare the patient [...] 1%. IMMUNOLOGY JAK2 (V617F) Comment 09/12 Result [facility] Comment: Medical
[facility] Quantitative Real-Time PCR assay detects V617F mutation
[...] Bili Direct <0.1 0.0 - 0.3 09/11 [facility] CHEM PANEL Bili Unable to 0.0 - 1.0 09/11 [facility] Indirect [facility] CHEM PANEL A/G Ratio 0.5 0.7 - 1.6 09/[address] CHEM PANEL ALT 40 0 - 65 09/[address] CHEM PANEL AST 31 0 - 37 09/[address] CHEM PANEL Alk Phos 144 39 - 136 09/[address] CHEM PANEL Bili Total 0.8 0.2 - 1.3 09/11 [facility] CHEM PANEL Total 7.3 6.4 - 8.4 09/11 [facility] Protein [facility] CHEM PANEL Albumin Lvl 2.5 3.5 - 5.0 09/11 [facility] CHEM PANEL Globulin 4.8 2.7 - 4.2 09/[address] Culture: 10,000 - 09/10 [facility] Urine 50,000 [facility] CFU/mL [place] [facility] BLOOD BANK Antibody Negative 09/10 [facility] RESULTS Scrn (09/10/18 5:06 PM) Medica l [place] BLOOD BANK ABO/Rh O POS 09/10 [facility] RESULTS [facility] CHEM PANEL Alk Phos 166 39 - 136 09/10 [facility]2018 [facility] CHEM PANEL Bili Total 0.8 0.2 - 1.3 09/10 [facility]2018 [facility] CHEM PANEL ALT 45 0 - 65 09/[address] CHEM PANEL AST 35 0 - 37 09/10 [facility]2018 [facility] CHEM PANEL Total 7.1 6.4 - 8.4 09/10 [facility] Protein [facility] CHEM PANEL Albumin Lvl 2.9 3.5 - 5.0 09/10 [facility] CHEM PANEL B/C Ratio 11 6 - 25 09/10 [facility]2018 [facility] CHEM PANEL A/G Ratio 0.7 0.7 - 1.6 09/10 [facility]2018 [facility] CHEM PANEL Globulin 4.2 2.7 - 4.2 09/[address] HEMATOLOGY Heparin Negative 1 Negative 09/10 Result [facility] Ab(SRIDEVI) (09/10/18 5:06 PM) Comment: [facility] Medical assay detects Center heparin antibodies of IgG isotype. Antibodies of other isotypes have been reported to cause heparin-induc ed thrombocytope davey. Therefore, if there is a strong clinical suspicion of HIT, additional study with a serotonin release assay is recommented. HEMATOLOGY Pat Od Value 0.127 09/10 [facility] HEMATOLOGY Pos CO Value 0.400 09/10 [facility]2018 [facility] HEMATOLOGY INR 1.08 0.85 - 09/10 [place] 1.17 [facility] HEMATOLOGY Thrombin 19.1 15.0 - 09/10 [place] Time 21.2 [facility] HEMATOLOGY D-Dimer 1.22 09/10 [place] [facility] HEMATOLOGY Fibrinogen 548 230 - 510 09/10 [place] Lvl /2018 [facility] HEMATOLOGY PTT 30.3 22.9 - 09/10 [place] 35.8 /2018 [facility] HEMATOLOGY PT 13.8 12.0 - 09/10 [facility] 14.7 /2018 [facility] IMMUNOLOGY IgA Lvl 615.0 68.0 - 09/10 [place] 378.0 [facility] URINE AND UA Glucose 50mg/dl 09/10 [facility] STOOL [facility] URINE AND UA Turbidity Marked Clear 09/10 [facility] *ABN* [facility] (09/10/18 5:06 PM) [place] URINE AND UA Color Yellow Yellow 09/10 [facility] *NA* [facility] (09/10/18 5:06 PM) [place] URINE AND UA Protein 30 mg/dL Negative 09/10 [facility] mg/dL [facility] URINE AND UA pH 6.0 5.0 - 8.0 09/10 [facility] [address] [place] [address] URINE AND UA Ketones Trace Negative 09/10 [facility] *ABN* [facility] (09/10/18 5:06 PM) [place] URINE AND UA Bili Negative Negative 09/10 [facility] *NA* [facility] (09/10/18 5:06 PM) [place] URINE AND UA Leuk Est Trace Negative 09/10 [facility] *ABN* [facility] (09/10/18 5:06 PM) [place] URINE AND UA <1.0 0.1 - 1.0 09/10 [facility] Urobilinogen /[address] [place] [address] URINE AND UA Blood Small Negative 09/10 [facility] *ABN* [facility] (09/10/18 5:06 PM) [place] URINE AND UA Nitrite Negative Negative 09/10 [facility] (09/10/18 5:06 PM) /2018 Medica l Center URINE AND UA Spec Grav 1.012 <=1.030 09/10 [facility] URINE AND UA WBC 19 0 - 5 09/10 [facility] [address] [place] [address] URINE AND UA Sq Epi Few /LPF Few /LPF 09/10 [facility] [address] [place] [address] URINE AND UA RBC 1 0 - 2 09/10 [facility] [address] [place] [address] URINE AND UA Mucus Few /LPF None Seen 09/10 [facility] STOOL /LPF /2018 [facility] HEMATOLOGY Bands 0.0 0.0 - 11.0 09/10 [place] [facility] HEMATOLOGY Large Plt Slight 09/10 [facility] HEMATOLOGY Atypical 0.0 <=0.0 % 09/10 [facility] Lymphs /2018 [facility] IMMUNOLOGY Striated 1:320 Neg:<1:40 09/10 Result [facility] Muscle IgG Comment: Medical Performed At: Center [facility]
[address] [place] [id number]<br/ >Kosta Tucker MD Ph:[phone] IMMUNOLOGY IgA Lvl 592.0 68.0 - 09/10 [place] 378.0 [facility] HEMATOLOGY Sed Rate 20 0 - 20 09/09 [facility] IMMUNOLOGY C-REACTIVE 5.2 <=2.9 mg/L 09/09 PROTEIN /2018 [facility] HEMATOLOGY PTT 32.0 22.9 - 09/08 35.8 /2018 [facility] HEMATOLOGY PT 13.5 12.0 - 09/08 14.7 /2018 [facility] HEMATOLOGY INR 1.05 0.85 - 09/08 1.17 /2018 [facility] ELECTROLYTE AGAP 15.8 10.0 - 09/08 S 20.0 [facility] ELECTROLYTE B/C Ratio 16 6 - 25 09/08 S [facility] ELECTROLYTE Globulin 4.2 2.7 - 4.2 09/08 S [facility] ELECTROLYTE A/G Ratio 0.7 0.7 - 1.6 09/08 S [facility] ELECTROLYTE Sodium Lvl 147 135 - 145 09/08 S [facility] ELECTROLYTE Potassium 3.8 3.5 - 5.1 09/08 S Lvl /2018 [facility] ELECTROLYTE Chloride Lvl 107 95 - 109 09/08 S [facility] ELECTROLYTE BUN 21 7 - 22 09/08 S [facility] ELECTROLYTE Glucose Lvl 144 70 - 99 09/08 S [facility] ELECTROLYTE Albumin Lvl 2.9 3.5 - 5.0 09/08 S [facility] ELECTROLYTE CO2 28 24 - 32 09/08 S [facility] ELECTROLYTE eGFR 40 09/08 Result S Comment: [facility] eGFR is [place] calculated using the CKD-EPI [...] 137 0 - 37 09/08 [facility] S [facility] ELECTROLYTE ALT 67 0 - 65 09/08 [place] S [facility] ELECTROLYTE Creatinine 1.33 0.50 - 04 [facility] S Lvl 1.40 [facility] ELECTROLYTE Bili Total 1.3 0.2 - 1.3 09/08 [facility] S [facility] ELECTROLYTE Total 7.1 6.4 - 8.4 09/08 [facility] S Protein /2018 [facility] ELECTROLYTE Alk Phos 195 39 - 136 09/08 S [facility] ELECTROLYTE Calcium Lvl 9.3 8.5 - 10.5 09/08 S [facility] HEMATOLOGY Basophils # 0.1 0.0 - 0.2 09/08 [facility] HEMATOLOGY Neutrophils 2.5 1.5 - 8.1 09/08 [facility] # /2018 [facility] HEMATOLOGY Eosinophils 0.2 0.0 - 0.5 09/08 [facility] # [facility] HEMATOLOGY Monocytes # 0.7 0.0 - 0.8 09/08 [facility] HEMATOLOGY Lymphocytes 3.3 1.0 - 5.5 09/08 [facility] # [facility] HEMATOLOGY Monocytes 9.8 2.0 - 12.0 09/08 [facility] HEMATOLOGY Eosinophils 2.5 0.0 - 4.0 09/08 [facility] HEMATOLOGY Basophils 2.0 0.0 - 1.0 09/08 [facility] HEMATOLOGY Lymphocytes 48.8 20.0 - 04 [facility] 40.0 [facility] HEMATOLOGY Segs 36.9 45.0 - 09/08 75.0 [facility] HEMATOLOGY MPV 11.3 7.4 - 10.4 09/08 [facility] HEMATOLOGY MCH 30.3 27.0 - 09/08 31.0 [facility] HEMATOLOGY Platelet 125 133 - 450 09/08 [facility] HEMATOLOGY RDW 13.9 11.5 - 09/08 14. [facility] HEMATOLOGY MCV 92.9 80.0 - 09/08 98.0 [facility] HEMATOLOGY MCHC 32.6 32.0 - 09/08 36.0 [facility] HEMATOLOGY WBC 6.8 3.7 - 10.4 09/08 [facility] HEMATOLOGY RBC 5.13 4.20 - 09/08 . [facility] HEMATOLOGY Hgb 15.5 12.0 - 09/08 16.0 [facility] HEMATOLOGY Hct 47.7 36.0 - 09/08 48.0 [facility] LIPIDS VLDL 24 09/08 [facility] LIPIDS LDL 45 <=99 mg/dL 09/08 (Calculated) [facility] LIPIDS CHD Risk 2.82 3.90 - 09/08 5.80 [facility] LIPIDS HDL 38 >=61 mg/dL 09/08 [facility] LIPIDS Trig 118 <=149 09/08 mg/dL [facility] LIPIDS Chol 107 <=199 09/08 mg/dL [facility] SPECIAL Hgb A1C 12.2 <=5.6 % 09/08 CHEMISTRY [facility] HEMATOLOGY MPV 9.7 7.4 - 10.4 08/19 [facility] HEMATOLOGY Platelet 163 133 - 450 08/19 [facility] HEMATOLOGY RDW 13.7 11.5 - 08/19 [place] 14. [facility] HEMATOLOGY Hgb 17.8 12.0 - 08/19 [place] 16.0 [facility] HEMATOLOGY Hct 52.9 36.0 - 08/19 [place] 48.0 [facility] HEMATOLOGY MCV 92.3 80.0 - 08/19 [place] 98.0 [facility] HEMATOLOGY RBC 5.73 4.20 - 08/19 [place] 5.40 [facility] HEMATOLOGY WBC 8.5 3.7 - 10.4 08/19 [facility] HEMATOLOGY MCHC 33.6 32.0 - 08/19 [facility] 36.0 [facility] HEMATOLOGY MCH 31.0 27.0 - 08/19 [facility] 31.0 [facility] CARDIAC BNP 98 <=100 08/19 [facility] ENZYMES pg/mL [facility] CHEM PANEL Phosphorus 3.4 2.5 - 4.5 08/19 [facility] CHEM PANEL Magnesium 1.9 1.8 - 2.4 08/19 [facility] CHEM PANEL eGFR 62 08/19 Result Comment: [...] Calcium Lvl 8.8 8.5 - 10.5 08/19 [facility] CHEM PANEL CO2 23 24 - 32 08/19 [facility] CHEM PANEL Chloride Lvl 106 95 - 109 08/19 [facility] CHEM PANEL Potassium 4.6 3.5 - 5.1 08/19 Result [facility] Comment: [facility] Moderately Hemolyzed. CHEM PANEL Creatinine 0.94 0.50 - 08/19 [facility] Lvl 1.40 [facility] CHEM PANEL Sodium Lvl 138 135 - 145 08/19 2018 [facility] CHEM PANEL BUN 13 7 - 22 08/19 [facility] CHEM PANEL Glucose Lvl 160 70 - 99 08/19 [facility] CHEM PANEL AGAP 13.6 10.0 - 08/19 [facility] [place] 20.0 /2019 [facility] HEMATOLOGY Eosinophils 0.2 0.0 - 0.5 08/19 [place] # /2019 [facility] HEMATOLOGY Basophils # 0.1 0.0 - 0.2 08/19 [place] /2019 [facility] HEMATOLOGY Segs 47.9 45.0 - 08/19 [place] 75.0 /2019 [facility] HEMATOLOGY Lymphocytes 40.1 20.0 - 08/19 [place] 40.0 /2019 [facility] HEMATOLOGY Lymphocytes 3.9 1.0 - 5.5 08/19 [place] # /2019 [facility] HEMATOLOGY Monocytes # 0.9 0.0 - 0.8 08/19 [facility] HEMATOLOGY Monocytes 8.8 2.0 - 12.0 08/19 [facility] HEMATOLOGY Basophils 1.2 0.0 - 1.0 08/19 /2018 [facility] HEMATOLOGY Eosinophils 2.0 0.0 - 4.0 08/19 [facility] s /2018 [facility] HEMATOLOGY Neutrophils 4.7 1.5 - 8.1 08/19 [facility] s [facility] HEMATOLOGY INR 1.09 0.85 - 08/19 [place] 1.17 [facility] HEMATOLOGY PT 13.9 12.0 - 08/19 [place] 14.7 [facility] HEMATOLOGY PTT 31.0 22.9 - 08/19 [place] 35.8 2019 [facility] HEMATOLOGY MCV 93.0 80.0 - 08/19 [place] 98.0 /2019 [facility] HEMATOLOGY MCH 31.1 27.0 - 08/19 [place] 31.0 2019 [facility] HEMATOLOGY RDW 13.7 11.5 - 08/19 [place] 14.5 2019 [facility] HEMATOLOGY MCHC 33.4 32.0 - 08/19 [place] 36.0 2019 [facility] HEMATOLOGY Platelet 77 133 - 450 08/19 /2018 [facility] HEMATOLOGY MPV 9.9 7.4 - 10.4 08/19 [facility] HEMATOLOGY Hct 49.7 36.0 - 08/19 [place] 48.0 /2019 [facility] HEMATOLOGY Hgb 16.6 12.0 - 08/19 [place] 16.0 /2019 [facility] HEMATOLOGY RBC 5.35 4.20 - 08/19 [place] 5.40 /2019 [facility] HEMATOLOGY WBC 9.7 3.7 - 10.4 08/19 [facility] PARATHYROID Ca Ion WB 1.02 1.05 - 08/19 [facility] PROFILE 1. [facility] PARATHYROID Ca Norm WB 0.98 1.05 - 08/19 [facility] PROFILE . [facility] URINE AND Occult Bld Negative Negative 08/19 [facility] STOOL Stl (08/19/18 4:40 AM) [facility] Culture: Normal Enteric Era Isolated 08/19 [facility] Stool No Salmonella Or Shigella [facility] CHEM PANEL Alk Phos 132 39 - 136 08/[address] CHEM PANEL A/G Ratio 0.6 0.7 - 1.6 08/[address] CHEM PANEL ALT 30 0 - 65 08/[address] CHEM PANEL Total 6.9 6.4 - 8.4 08/18 [facility] Protein [facility] CHEM PANEL Albumin Lvl 2.6 3.5 - 5.0 08/[address] CHEM PANEL Globulin 4.3 2.7 - 4.2 08/[address] CHEM PANEL Bili Direct <0.1 0.0 - 0.3 08/[address] CHEM PANEL Bili Total 0.5 0.2 - 1.3 08/[address] CHEM PANEL Bili >0.4 0.0 - 1.0 08/18 [facility] Indirect 2018 [facility] CHEM PANEL AST 21 0 - 37 08/[address] CHEM PANEL Calcium Lvl 8.5 8.5 - 10.5 08/[address] CHEM PANEL eGFR 71 08/18 [facility] Comment: The Medical eGFR is Center [...] PANEL BUN 13 7 - 22 08/[address] CHEM PANEL Glucose Lvl 162 70 - 99 08/[address] CHEM PANEL CO2 27 24 - 32 08/[address] CHEM PANEL Potassium 3.6 3.5 - 5.1 08/18 [facility] CHEM PANEL Sodium Lvl 142 135 - 145 08/[address] CHEM PANEL Chloride Lvl 108 95 - 109 08/[address] CHEM PANEL Creatinine 0.83 0.50 - 08/18 [facility] 1.40 [facility] CHEM PANEL AGAP 10.6 10.0 - 08/18 [facility] 20.0 [facility] CHEM PANEL Magnesium 1.8 1.8 - 2.4 08/18 [facility] CHEM PANEL Phosphorus 3.6 2.5 - 4.5 08/[address] HEMATOLOGY Neutrophils 3.9 1.5 - 8.1 08/18 [facility] HEMATOLOGY Eosinophils 2.5 0.0 - 4.0 08/[address] HEMATOLOGY Basophils 1.9 0.0 - 1.0 08/[address] HEMATOLOGY Monocytes # 0.6 0.0 - 0.8 08/18 [facility] /[address] [place] [address] HEMATOLOGY Lymphocytes 3.8 1.0 - 5.5 08/18 [facility] HEMATOLOGY Eosinophils 0.2 0.0 - 0.5 08/18 [facility] [address] [place] [address] HEMATOLOGY Basophils # 0.2 0.0 - 0.2 08/[address] HEMATOLOGY Lymphocytes 44.0 20.0 - 08/18 [place] 40.0 [facility] HEMATOLOGY Segs 45.3 45.0 - 08/18 [place] 75.0 [facility] HEMATOLOGY Monocytes 6.3 2.0 - 12.0 08/[address] HEMATOLOGY Hct 49.2 36.0 - 08/18 [facility] [place] 48.0 2019 [facility] HEMATOLOGY Hgb 17.0 12.0 - 08/18 [place] 16.0 2019 [facility] HEMATOLOGY RBC 5.30 4.20 - 08/18 [place] 5.40 /2019 [facility] HEMATOLOGY WBC 8.7 3.7 - 10.4 08/18 /2018 [facility] HEMATOLOGY MCV 92.8 80.0 - 08/18 [place] 98.0 [facility] HEMATOLOGY MPV 9.7 7.4 - 10.4 08/18 /2019 [facility] HEMATOLOGY RDW 13.6 11.5 - 08/18 [facility] 14.5 2019 [facility] HEMATOLOGY Platelet 161 133 - 450 08/18 [facility] /2018 [facility] HEMATOLOGY MCHC 34.6 32.0 - 08/18 [place] 36.0 [facility] HEMATOLOGY MCH 32.1 27.0 - 08/18 [place] 31.0 [facility] PARATHYROID Ca Norm WB 1.05 1.05 - 08/18 [facility] PROFILE 1. [facility] PARATHYROID Ca Ion WB 1.06 1.05 - 08/18 [facility] PROFILE 1. [facility] HEMATOLOGY Monocytes # 0.9 0.0 - 0.8 08/17 [facility] s /2019 [facility] HEMATOLOGY Eosinophils 0.2 0.0 - 0.5 08/[facility] HEMATOLOGY Lymphocytes 5.1 1.0 - 5.5 08/17 [place] # /2019 [facility] HEMATOLOGY Basophils # 0.1 0.0 - 0.2 08/17 [facility] s /2019 [facility] HEMATOLOGY Monocytes 7.6 2.0 - 12.0 08/17 [facility] /2019 [facility] HEMATOLOGY Segs 44.9 45.0 - 08/17 [place] 75.0 2019 [facility] HEMATOLOGY Lymphocytes 44.2 20.0 - 08/17 [place] 40.0 2019 [facility] HEMATOLOGY Basophils 1.3 0.0 - 1.0 08/17 [facility] /2019 [facility] HEMATOLOGY Eosinophils 2.0 0.0 - 4.0 08/17 [place] [facility] HEMATOLOGY Neutrophils 5.2 1.5 - 8.1 08/17 [facility] # /2019 [facility] ELECTROLYTE AGAP 11.9 10.0 - 08/16 [place] S 20.0 /2019 Medical Center ELECTROLYTE eGFR 64 08/16 Result [facility] Comment: The Medical eGFR is Center [...] Sodium Lvl 142 135 - 145 08/16 [facility] ELECTROLYTE Potassium 3.9 3.5 - 5.1 08/16 [facility]2018 [facility] ELECTROLYTE Chloride Lvl 104 95 - 109 08/16 [facility] ELECTROLYTE CO2 30 24 - 32 08/16 [facility] ELECTROLYTE Calcium Lvl 9.6 8.5 - 10.5 08/16 [place] 2018 [facility] ELECTROLYTE BUN 16 7 - 22 08/[address] ELECTROLYTE Glucose Lvl 121 70 - 99 08/16 [facility] ELECTROLYTE Creatinine 0.91 0.50 - 08/16 [facility] Lvl 1.40 [facility] HEMATOLOGY RBC Morph Normal 08/16 [facility] (08/16/18 3:35 PM) [facility] HEMATOLOGY Plt Morph Normal 08/16 [facility] (08/16/18 3:35 PM) [facility] HEMATOLOGY PTT 32.0 22.9 - 08/16 [facility] 35.8 [facility] HEMATOLOGY PT 12.6 12.0 - 08/16 [facility] 14.7 [facility] HEMATOLOGY INR 0.96 0.85 - 08/16 [facility] 1.17 [facility] BEDSIDE Gluc POC 148.0 65 - 110 03/25 [place] <sup>1</sup>I [facility] GLUCOSE Lifscn nterpretive Medical TESTING Data: Center Upper Reportable Limit: 200 mg/dL. BEDSIDE Comment1 Notify 03/25 NA [facility] GLUCOSE RN/MD Medical TESTING Center BEDSIDE Comment1 Notify 03/25 NA [facility] GLUCOSE RN/MD Medical TESTING Center BEDSIDE Gluc POC 140.0 65 - 110 03/25 [place] <sup>2</sup>I [facility] GLUCOSE Lifscn nterpretive Medical TESTING Data: Center Upper Reportable Limit: 200 mg/dL. BEDSIDE Comment1 Notify 03/25 NA [place] GLUCOSE RN/MD Medical TESTING Center BEDSIDE Gluc POC 137.0 65 - 110 03/25 [place] <sup>3</sup>I [facility] GLUCOSE Lifscn nterpretive Medical TESTING Data: Center Upper Reportable Limit: 200 mg/dL. CHEMISTRY Globulin 3.3 2.0 - 4.0 03/25 Normal [facility] Center CHEMISTRY Total 5.4 6.4 - 8.4 03/25 LOW Medical Center CHEMISTRY Albumin Lvl 2.1 3.5 - 5.0 03/25 LOW Medical Center CHEMISTRY ALT 131.0 0 - 65 03/25 [facility] Medical Center CHEMISTRY Alk Phos 360.0 39 [...] on the clinical recommendatio ns of the [place] [employer]. CHEMISTRY BUN 21.0 7 - [...] 8.5 - 10.5 03/24 [place] [facility] CHEMISTRY Sodium Lvl 142.0 135 - 145 03/24 Normal [facility] CHEMISTRY BUN 23.0 7 - 22 03/24 HI [facility] CHEMISTRY Creatinine 1.7 0.5 - 1.4 03/24 HI [facility] Lvl [facility] CHEMISTRY Glucose Lvl 119.0 03/24 NA <sup>5</sup>I [place] nterpretive Medical Data: Center Reference Ranges : 0 - 7 days : 41 - 90 mg/dL 7 days - 150 yrs : 70 - 99 mg/dL (fasting), based on the clinical recommendatio ns of the [place] [employer]. HEMATOLOGY PT 14.8 12.0 - 03/24 [facility] [place] 14.7 [facility] HEMATOLOGY INR 1.16 0.85 - 03/24 Normal [...] 0.0 - 0.2 03/24 [place] [facility] HEMATOLOGY Segs-Bands # 4.1 1.5 - 8.1 03/24 Normal [place] [facility] HEMATOLOGY Lymphocytes 2.8 1.0 - 5.5 03/24 [place] # [facility] HEMATOLOGY Monocytes # 0.8 0.0 - 0.8 03/24 [place] [facility] HEMATOLOGY Eosinophils 1.8 0.0 - 0.5 03/24 [facility] [place] # [facility] HEMATOLOGY Lymphocytes 28.5 20.0 - 03/24 Normal [place] 40.0 [facility] HEMATOLOGY Monocytes 8.6 2.0 - 12.0 03/24 Normal [facility] HEMATOLOGY Eosinophils 19.0 0.0 - 4.0 03/24 [place] [facility] HEMATOLOGY Basophils 1.3 0.0 - 1.0 03/24 [facility] Medical Center HEMATOLOGY Segs 42.6 45.0 - 03/24 [facility] [place] 75.0 /2010 Medical Center HEMATOLOGY WBC 9.7 3.7 - 10.4 03/24 Normal [facility] HEMATOLOGY RBC 3.67 4.20 - 03/24 [facility] [place] 5.40 /2010 Medical Center HEMATOLOGY MCHC 34.9 32.0 - 03/24 [facility] [place] 36.0 Medical Center HEMATOLOGY RDW 15.1 11.5 - 03/24 [facility] [place] 14.5 /2010 Medical Center HEMATOLOGY Platelet 169.0 133 - 450 03/24 Normal [facility] HEMATOLOGY MCV 90.5 81.0 - 03/24 [facility] 99.0 [facility] [place] HEMATOLOGY MCH 31.6 27.0 - 03/24 [facility] [place] 31.0 [facility] HEMATOLOGY MPV 9.5 7.4 - 10.4 03/24 Normal [facility] HEMATOLOGY Hgb 11.6 12.0 - 03/24 [facility] [place] 16.0 [facility] HEMATOLOGY Hct 33.2 36.0 - 03/24 [facility] [place] 48.0 [facility] IMMUNOLOGY Hep Bs Ag Negative >Negative 03/24 NA [facility] *NA* /2010 Medical (03/24/2011 05:08:00) ?? [...] on the clinical recommendatio ns of the [place] [employer]. CHEMISTRY BUN 22.0 7 - 22 03/23 Normal [facility] CHEMISTRY Creatinine 1.5 0.5 - 1.4 03/23 [facility] CHEMISTRY CO2 20.0 24 - [...] 4.20 - 10/23 LOW [place] 5.40 /2010 [facility] HEMATOLOGY Large Plt Slight >None Seen 03/23 ABN [place] *ABN* Medical (03/23/2011 05:24:00) ?? Center HEMATOLOGY Lymphocytes 2.1 1.0 - 5.5 03/23 [place] # [facility] HEMATOLOGY Segs-Bands # 2.7 1.5 - 8.1 03/23 Normal [place] [facility] HEMATOLOGY Monocytes # 0.9 0.0 - 0.8 03/23 [place] [facility] HEMATOLOGY Plt Morph Normal 03/23 Normal [facility] (03/23/2011 05:24:00) ?? [facility] HEMATOLOGY Eosinophils 15.0 0.0 - 4.0 03/23 [facility] [place] [facility] HEMATOLOGY Atypical 0.0 <<=0.0 03/23 Normal [facility] Lymphs [facility] HEMATOLOGY Bands 1.0 0.0 - 11.0 03/23 Normal [facility] HEMATOLOGY Basophils 1.0 0.0 - 1.0 03/23 Normal [facility] HEMATOLOGY Eosinophils 1.0 0.0 - 0.5 03/23 [facility] [place] [facility] HEMATOLOGY Lymphocytes 31.0 20.0 - 03/23 Normal [place] 40.0 [facility] HEMATOLOGY Monocytes 13.0 2.0 - 12.0 03/23 [facility] [place] [facility] HEMATOLOGY Segs 39.0 45.0 - 03/23 LOW [place] 75.0 [facility] HEMATOLOGY Basophils # 0.1 0.0 - 0.2 03/23 [place] [facility] IMMUNOLOGY Prealbumin 10.0 18.0 - 03/23 LOW [place] 45.0 [facility] URINALYSIS UA ?? 0.1 - 1.0 03/22 NA [facility] Urobilinogen [facility] URINALYSIS UA Hyal Cast 3.0 0 - 2 03/22 [facility] [place] [facility] URINALYSIS UA Amorph Occasional /HPF >None Seen 03/22 NA [facility] Jagruti *NA* Medical (03/22/2011 17:20:00) ?? [...] Center URINALYSIS UA Blood Moderate >Negative 03/22 [facility] *ABN* Medical (03/22/2011 17:20:00) ?? Center URINALYSIS UA Glucose Negative mg/dL >Negative 03/22 NA [facility] *NA* Medical (03/22/2011 17:20:00) ?? Center [...] IMMUNOLOGY Hep B Core Negative >Negative 03/22 [facility] [place] [facility] IgM *NA* Medical (03/22/2011 09:40:00) ?? Center IMMUNOLOGY Hep C Ab Negative >Negative 03/22 NA [place] *NA* Medical (03/22/2011 09:40:00) ?? Center IMMUNOLOGY Hep Bs Ag See Note 9 >Negative 03/22 Normal <sup>9</sup>R [facility] (03/22/2011 09:40:00) ?? esult Medical Comment: [facility] Center Talked to Nyasia Mcdaniels Nurse will recollect in the morning 03/23/2011 16:39 RG CHEMISTRY T4 Free 1.67 0.76 - 03/22 [facility] [place] 1.46 Medical Center CHEMISTRY TSH 0.044 0.360 - 03/22 [facility] [place] 3.740 Medical Center BEDSIDE Comment1 Sliding 03/15 NA [facility] GLUCOSE Scale Medical TESTING Center BEDSIDE Gluc POC 152.0 65 - 110 03/15 [place] <sup>1</sup>I [facility] GLUCOSE Lifsc nterpretive Medical TESTING Data: Center Upper Reportable Limit: 200 mg/dL. BEDSIDE Comment1 Notify 03/15 [facility] GLUCOSE RN/MD Medical TESTING Center BEDSIDE Gluc POC 116.0 65 - 110 03/15 [place] <sup>2</sup>I [facility] GLUCOSE Lifscn nterpretive Medical TESTING Data: Center Upper Reportable Limit: 200 mg/dL. CHEMISTRY AGAP 18.5 10.0 - 03/15 Normal [place] 20.0 Medical Center CHEMISTRY Potassium 3.5 3.5 - 5.1 03/15 Normal [place] Lvl Medical Center CHEMISTRY CO2 21.0 24 - 32 03/15 LOW [place] [facility] CHEMISTRY Sodium Lvl 147.0 135 - 145 03/15 [facility] [place] [facility] CHEMISTRY Creatinine 1.4 0.5 - 1.4 03/15 Normal [place] Lvl Medical Center CHEMISTRY Chloride Lvl 111.0 95 - 109 03/15 [facility] [place] [facility] CHEMISTRY Calcium Lvl 8.1 8.5 - 10.5 03/15 [place] [facility] CHEMISTRY Glucose Lvl 97.0 03/15 NA <sup>12</sup> [place] Interpretive Medical Data: Center Reference Ranges : 0 - 7 days : 41 - 90 mg/dL 7 days - 150 yrs : 70 - 99 mg/dL (fasting), based on the clinical recommendatio ns of the [place] [employer]. CHEMISTRY BUN 21.0 7 - 22 03/15 Normal [place] [facility] CHEMISTRY Magnesium 1.7 1.8 - 2.4 03/15 LOW [place] Lvl /2010 Medical Center HEMATOLOGY Lymphocytes 16.7 20.0 - 03/15 LOW [place] 40.0 /2010 Medical Center HEMATOLOGY Monocytes 12.4 2.0 - 12.0 03/15 [facility] [place] [facility] HEMATOLOGY Segs 63.3 45.0 - 03/15 Normal [place] 75.0 Medical Center HEMATOLOGY Eosinophils 0.6 0.0 - 0.5 03/15 [facility] [place] # [facility] [place] HEMATOLOGY Monocytes # 1.1 0.0 - 0.8 03/15 [facility] [place] [facility] [place] HEMATOLOGY Basophils # 0.1 0.0 - 0.2 03/15 [place] [facility] HEMATOLOGY Lymphocytes 1.5 1.0 - 5.5 03/15 [place] # [facility] HEMATOLOGY Segs-Bands # 5.8 1.5 - 8.1 03/15 Normal [place] [facility] HEMATOLOGY Basophils 1.3 0.0 - 1.0 03/15 [facility] [place] [facility] HEMATOLOGY Eosinophils 6.3 0.0 - 4.0 03/15 [facility] [place] [facility] HEMATOLOGY MCH 31.6 27.0 - 03/15 [facility] [place] 31.0 /2010 Medical Center HEMATOLOGY [...] Medical Center BEDSIDE Comment1 Notify 03/15 NA [facility] GLUCOSE RN/MD /2010 Medical TESTING Center BEDSIDE Gluc POC 126.0 65 - 110 03/15 [place] <sup>3</sup>I [facility] GLUCOSE Lifscn nterpretive Medical TESTING Data: Center Upper Reportable Limit: 200 mg/dL. BEDSIDE Comment2 Sliding 03/14 NA [facility] GLUCOSE Scale Medical TESTING Center BEDSIDE Comment2 Sliding 03/14 NA [facility] GLUCOSE Scale Medical TESTING Center CHEMISTRY T4 Free 2.0 0.76 - 03/14 HI [place] 1.46 Medical Center CHEMISTRY TSH 0.042 0.360 - 03/14 LOW [facility] 3.740 Medical Center CHEMISTRY Total CK 31.0 12 - 191 03/14 Normal Medical Center CHEMISTRY Lactic Acid 1.6 0.5 - 2.2 03/14 Normal [facility] Lvl /2010 Medical Center HEMATOLOGY INR [...] 3.8 3.5 - 5.1 03/14 Normal <sup>5</sup>R [facility] esult Medical Comment: Center Collection date/time has been modified to: 01:50:00. Previous collection date/time: 01:50:00. CHEMISTRY BUN 20.0 7 - 22 03/14 Normal <sup>10</sup> Result Medical Comment: Center Collection date/time has been modified to: 01:50:00. Previous collection date/time: 01:50:00. CHEMISTRY Creatinine 1.4 0.5 - 1.4 03/14 Normal <sup>9</sup>R [facility] esult Medical Comment: Center Collection date/time has been modified to: 01:50:00. Previous collection date/time: 01:50:00. CHEMISTRY Glucose Lvl 91.0 03/14 NA <sup>13</sup> [facility] Result Medical Comment: Center Collection date/time has been modified to: 01:50:00. Previous collection date/time: 01:50:00.<br/ ><sup>14</sup >Interpretive Data: Reference Ranges : 0 - 7 days : 41 - 90 mg/dL 7 days - 150 yrs : 70 - 99 mg/dL (fasting), based on the clinical recommendatio ns of the [place] [employer].< br/><sup>15</ sup>Interpret kimberly Data: Reference Ranges : 0 - 7 days : 41 - 90 mg/dL 7 days - 150 yrs : 70 - 99 mg/dL (fasting), based on the clinical recommendatio ns of the [place] [employer]. CHEMISTRY Magnesium 1.2 1.8 - [...] Slight 52 >None Seen 03/14 ABN <sup>52</sup> [facility] *ABN* Result Medical (03/14/2011 01:50:00) ?? Comment : Center Collection date/time has been modified to: 01:50:00. Previous collection date/time: 01:50:00. HEMATOLOGY [place] Cell Slight 51 >None Seen 03/14 ABN <sup>51</sup> [facility] *ABN* Result Medical (03/14/2011 01:50:00) ?? Comment : Center Collection date/time has been modified to: 01:50:00. Previous collection date/time: 01:50:00. HEMATOLOGY Anisocyte 1+ 49 >None Seen 03/14 ABN <sup>49</sup> [facility] *ABN* /2010 Result Medical (03/14/2011 01:50:00) ?? Comment : Center Collection date/time has been modified to: 01:50:00. Previous collection date/time: 01:50:00. HEMATOLOGY Polychrom Slight 50 >None Seen 03/14 Normal <sup>50</sup> [facility] (03/14/2011 01:50:00) ?? /2010 Result Medical [...] AST 27.0 0 - 37 03/13 Normal [facility] CHEMISTRY Globulin 3.2 2.0 - 4.0 03/13 Normal [facility] CHEMISTRY Albumin Lvl 2.9 3.5 - 5.0 03/13 LOW [facility] CHEMISTRY ALT 32.0 0 - 65 03/13 Normal [facility] CHEMISTRY Total 6.1 6.4 - 8.4 03/13 LOW Protein [facility] CHEMISTRY A/G Ratio 0.9 0.7 - 1.6 03/13 Normal Medical Center CHEMISTRY Bili 0.3 0.0 - 1.0 03/13 Normal [facility] Center CHEMISTRY Bili Total 0.4 0.2 - 1.3 03/13 Normal Medical Center CHEMISTRY Bili Direct 0.1 0.0 - 0.3 03/13 Normal [facility] Center CHEMISTRY Alk Phos 103.0 39 - 136 03/13 Normal Medical Center BEDSIDE Gluc POC 197.0 65 - 110 03/07 [place] <sup>1</sup>I [facility] GLUCOSE Lifsc nterpretive Medical TESTING Data: Center Upper Reportable Limit: 200 mg/dL. BEDSIDE Comment1 Notify 03/07 NA [facility] GLUCOSE RN/MD Medical TESTING Center BEDSIDE Comment2 Sliding 03/07 NA [facility] GLUCOSE Scale Medical TESTING Center BEDSIDE Gluc POC 112.0 65 - 110 03/07 [place] <sup>2</sup>I [facility] GLUCOSE Lifms nterpretive Medical TESTING Data: Center Upper Reportable Limit: 200 mg/dL. BEDSIDE Comment1 Notify 03/07 NA [facility] GLUCOSE RN/MD Medical TESTING Center BEDSIDE Comment2 Sliding 03/07 NA [facility] GLUCOSE Scale Medical TESTING Center BEDSIDE Comment1 Notify 03/07 NA [facility] GLUCOSE RN/MD Medical TESTING Center BEDSIDE Gluc POC 180.0 65 - 110 03/07 [place] <sup>3</sup>I [facility] GLUCOSE Lifsc nterpretive Medical TESTING Data: Center Upper Reportable Limit: 200 mg/dL. BEDSIDE Comment2 Sliding 03/06 NA [facility] GLUCOSE Scale Medical TESTING Center CHEMISTRY [...] Potassium 3.8 3.5 - 5.1 03/05 Normal [facility] CHEMISTRY Calcium Lvl 8.4 8.5 - 10.5 10/ [place] [facility] CHEMISTRY AGAP 15.8 10.0 - 10 Normal [place] 20.0 [facility] Center CHEMISTRY CO2 25.0 24 - 32 10/ Normal [facility] Center CHEMISTRY BUN 16.0 7 - 22 10 Normal Medical Center CHEMISTRY Creatinine 0.9 0.5 - 1.4 10 Normal [facility] Lvl Medical Center CHEMISTRY Glucose Lvl 77.0 10 NA <sup>5</sup>I [place] nterpretive Medical Data: Center Reference Ranges : 0 - 7 days : 41 - 90 mg/dL 7 days - 150 yrs : 70 - 99 mg/dL (fasting), based on the clinical recommendatio ns of the [place] [employer]. HEMATOLOGY Segs 45.6 45.0 - 03/05 Normal [place] 75.0 /2010 Medical Center HEMATOLOGY Monocytes 10.4 2.0 - 12.0 10 Normal [facility] HEMATOLOGY Eosinophils 3.5 0.0 - 4.0 10 [...] 2.0 0.0 - 1.0 10 [facility] [place] HEMATOLOGY Segs-Bands # 5.8 1.5 - 8.1 [...] HEMATOLOGY WBC 12.7 3.7 - 10.4 10 [facility] Medical Center HEMATOLOGY MCH 32.0 27.0 - 10 [facility] [place] 31.0 Medical Center HEMATOLOGY Hct 28.5 36.0 - 10 LOW [place] 48.0 Medical Center HEMATOLOGY MCHC 34.6 32.0 - 10 Normal [place] 36.0 Medical Center HEMATOLOGY Platelet 221.0 133 - 450 03/05 Normal Medical Center HEMATOLOGY RDW 16.5 11.5 - 03/05 [facility] [place] 14. Medical Center HEMATOLOGY MPV 9.1 7.4 - 10.4 10 Normal Medical Center HEMATOLOGY Platelet 270.0 133 - 450 03/03 Normal Medical Center HEMATOLOGY RDW 16.4 11. - 03/03 [facility] [place] 14. Medical Center HEMATOLOGY MCHC 33.6 32.0 - 10 Normal [place] 36.0 Medical Center HEMATOLOGY MCH 31.8 27.0 - 03/03 [facility] [place] 31.0 Medical Center HEMATOLOGY WBC 12.4 3.7 - 10.4 10 [facility] HEMATOLOGY MPV 9.4 7.4 - 10.4 10 Normal Medical Center HEMATOLOGY MCV 94.6 81.0 - 10 [facility] [place] 99.0 Medical Center HEMATOLOGY Hct 30.8 36.0 - 10 [facility] [place] 48.0 Medical Center HEMATOLOGY Hgb 10.4 12.0 - 10 [facility] [place] 16.0 Medical Center HEMATOLOGY RBC 3.25 4.20 - 10 [facility] [place] . Medical Center HEMATOLOGY RDW 16.0 11.5 - 03/02 [facility] [place] 14. Medical Center HEMATOLOGY MPV 9.1 7.4 - 10.4 03/02 Normal Medical Center HEMATOLOGY Platelet 283.0 133 - 450 03/02 Normal Medical Center HEMATOLOGY RBC 3.23 4.20 - 10 [facility] [place] 5.40 Medical Center HEMATOLOGY MCV 94.5 81.0 - 10/ Normal [place] 99.0 Medical Center HEMATOLOGY Hct 30.5 36.0 - 10 [facility] [place] 48.0 Medical Center HEMATOLOGY Hgb 10.3 12.0 - 10 LOW [place] 16.0 /2010 Medical Center HEMATOLOGY MCHC 33.6 32.0 - 03/02 Normal [place] 36.0 /2010 Medical Center HEMATOLOGY WBC 12.7 3.7 - 10.4 10 [facility] HEMATOLOGY MCH 31.8 27.0 - 03/02 HI [place] 31.0 /2010 Medical Center URINALYSIS UA ?? 0.1 - 1.0 03/01 NA [facility] Urobilinogen /2010 Medical Center URINALYSIS UA Turbidity Clear >Clear 03/01 Normal [facility] (03/01/2011 15:38:00) ?? Medical Center URINALYSIS UA Spec Grav 1.009 <<=1.030 03/01 [place] [facility] [place] URINALYSIS UA Color Yellow >Yellow 03/01 NA [facility] * Medical (03/01/2011 15:38:00) ?? Center URINALYSIS UA pH 5.5 5.0 - 8.0 03/01 Normal Medical Center URINALYSIS UA Ketones Negative mg/dL >Negative 03/01 [facility] Medical (03/01/2011 15:38:00) ?? Center URINALYSIS UA Glucose Negative mg/dL >Negative 03/01 [facility] Medical (03/01/2011 15:38:00) ?? Center URINALYSIS UA Bili Negative >Negative 03/01 NA [facility] Medical (03/01/2011 15:38:00) ?? Center URINALYSIS UA Blood Negative >Negative 03/01 Normal [facility] (03/01/2011 15:38:00) ?? Medical Center URINALYSIS UA WBC <1.0 0 - 5 03/01 Normal Medical Center URINALYSIS UA Nitrite Negative >Negative 03/01 Normal [place] (03/01/2011 15:38:00) ?? Medical Center URINALYSIS UA Leuk Est Negative >Negative 03/01 Normal [place] (03/01/2011 15:38:00) ?? Medical Center URINALYSIS UA Mucus Few /LPF >None Seen 03/01 NA [facility] *NA* Medical (03/01/2011 15:38:00) ?? Center URINALYSIS UA Sq Epi Moderate /LPF >Few 03/01 [place] *ABN* Medical (03/01/2011 15:38:00) ?? Center URINALYSIS UA Hyal Cast 1.0 0 - 2 03/01 Normal [facility] URINALYSIS UA Protein 10 mg/dL >Negative 03/01 [place] *[place]* Medical (03/01/2011 15:38:00) ?? Center Microbiolog Culture: 03/01 y Urine [facility] HEMATOLOGY Lymphocytes 5.7 1.0 - 5.5 02/28 [place] # [facility] HEMATOLOGY Segs-Bands # 4.8 1.5 - 8.1 02/28 Normal [facility] HEMATOLOGY Basophils 1.0 0.0 - 1.0 02/28 Normal [facility] HEMATOLOGY Monocytes 8.9 2.0 - 12.0 02/28 Normal [facility] HEMATOLOGY Eosinophils 2.8 0.0 - 4.0 02/28 [...] Ratio 0.8 0.7 - 1.6 02/27 Normal [facility] CHEMISTRY Total 5.0 6.4 - 8.4 02/27 LOW [facility] CHEMISTRY Calcium Lvl 8.4 8.5 - 10.5 02/27 LOW Medical Center CHEMISTRY ALT 24.0 0 - 65 02/27 Normal [facility] CHEMISTRY Albumin Lvl 2.2 3.5 - 5.0 02/27 LOW [facility] CHEMISTRY Bili Total 0.3 0.2 - 1.3 02/27 Normal [facility] CHEMISTRY AST 21.0 0 - 37 02/27 Normal [facility] CHEMISTRY Alk Phos 98.0 39 - 136 02/27 Normal [facility] Center CHEMISTRY CO2 28.0 24 - 32 02/27 Normal [facility] CHEMISTRY BUN 10.0 7 - 22 02/27 Normal [facility] CHEMISTRY Potassium 3.8 3.5 - 5.1 02/27 Normal [facility] CHEMISTRY Sodium Lvl 143.0 135 - 145 02/27 Normal [facility] CHEMISTRY Creatinine 0.7 0.5 - 1.4 02/27 Normal [facility] [place] CHEMISTRY Glucose Lvl 119.0 02/27 NA <sup>6</sup>I [place] nterpretive Medical Data: Center Reference Ranges : 0 - 7 days : 41 - 90 mg/dL 7 days - 150 yrs : 70 - 99 mg/dL (fasting), based on the clinical recommendatio ns of the [place] [employer]. CHEMISTRY Chloride Lvl 105.0 95 - 109 02/27 Normal [facility] HEMATOLOGY Monocytes # 0.9 0.0 - 0.8 02/27 [facility] HEMATOLOGY Eosinophils 0.3 0.0 - 0.5 02/27 [place] [facility] HEMATOLOGY Lymphocytes 3.3 1.0 - 5.5 02/27 [place] [facility] HEMATOLOGY Basophils # 0.1 0.0 - 0.2 02/27 Normal [facility] HEMATOLOGY Basophils 1.2 0.0 - 1.0 02/27 [facility] HEMATOLOGY Segs-Bands # 6.0 1.5 - 8.1 02/27 Normal [facility] [place] HEMATOLOGY Monocytes 8.3 2.0 - 12.0 02/27 Normal [facility] HEMATOLOGY Eosinophils 3.1 0.0 - 4.0 09/29 Normal [facility] HEMATOLOGY Segs 56.6 45.0 - 02/27 Normal [facility] 75.0 Medical Center HEMATOLOGY Lymphocytes 30.8 20.0 - 02/27 Normal [facility] 40.0 Medical Center BEDSIDE Gluc POC 207.0 65 - 110 02/26 [place] <sup>1</sup>I [facility] GLUCOSE nterpretive Medical TESTING Data: Center Upper Reportable Limit: 200 mg/dL. BEDSIDE Comment1 Notify 02/26 NA [facility] GLUCOSE RN/MD /2010 Medical TESTING Center BEDSIDE Comment1 Notify 02/26 NA [facility] GLUCOSE RN/MD /2010 Medical TESTING Center BEDSIDE Gluc POC 155.0 65 - 110 02/26 [place] <sup>2</sup>I [facility] GLUCOSE [facility] [place] [facility] nterpretive Medical TESTING Data: Center Upper Reportable Limit: 200 mg/dL. BEDSIDE Gluc POC 140.0 65 - 110 02/26 HI <sup>3</sup>I [facility] GLUCOSE [facility] [place] [facility] nterpretive Medical TESTING Data: Center Upper Reportable Limit: 200 mg/dL. CHEMISTRY AGAP 15.6 10.0 - 02/26 Normal [facility] 20.0 [facility] Center CHEMISTRY CO2 25.0 24 - 32 02/26 Normal [facility] Center CHEMISTRY Calcium Lvl 7.9 8.5 - 10.5 02/26 LOW [facility] Center CHEMISTRY Sodium Lvl 142.0 135 - 145 02/26 Normal [facility] CHEMISTRY Potassium 3.6 3.5 - 5.1 02/26 Normal [facility] Center CHEMISTRY Creatinine 0.5 0.5 - 1.4 02/26 Normal [facility] Center [...] on the clinical recommendatio ns of the [place] [employer]. HEMATOLOGY Hgb 10.5 12.0 - 02/26 LOW [place] 16.0 Medical Center HEMATOLOGY Hct 31.2 36.0 - 02/26 LOW [facility] 48.0 Medical Center BEDSIDE Comment1 Notify 02/26 NA [facility] GLUCOSE RN/MD Medical TESTING Center CHEMISTRY Magnesium 1.9 1.8 - 2.4 02/24 Normal [facility] Center CHEMISTRY Calcium Lvl 7.9 8.5 - 10.5 02/24 [place] [facility] CHEMISTRY Chloride Lvl 106.0 95 - 109 02/24 Normal Medical Center CHEMISTRY CO2 24.0 24 - 32 02/24 Normal Medical Center CHEMISTRY Sodium Lvl 142.0 135 - 145 02/24 Normal Medical Center CHEMISTRY Creatinine 0.6 0.5 - 1.4 02/24 Normal [facility] Center CHEMISTRY BUN 12.0 7 - 22 02/24 Normal Medical Center CHEMISTRY Glucose Lvl 89.0 02/24 NA <sup>5</sup>I [place] nterpretive Medical Data: Center Reference Ranges : 0 - 7 days : 41 - 90 mg/dL 7 days - 150 yrs : 70 - 99 mg/dL (fasting), based on the clinical recommendatio ns of the [place] [employer]. CHEMISTRY Potassium 3.7 3.5 - 5.1 02/24 Normal [facility] Center CHEMISTRY AGAP 15.7 10.0 - 02/24 [facility] 20.0 Medical Center HEMATOLOGY Hct 30.7 36.0 - 02/24 [facility] 48.0 Medical Center HEMATOLOGY Hgb 10.3 12.0 - 02/24 [facility] 16.0 Medical Center HEMATOLOGY Sed Rate 105.0 0 - 20 02/24 [facility] CHEMISTRY Magnesium 1.7 1.8 - 2.4 02/21 LOW [facility] Center CHEMISTRY Ca Norm mgdL 4.64 4.65 - 02/21 [facility] 5. Medical Center CHEMISTRY Ca Ion 1.1 1.16 - 02/21 [facility] 1. Medical Center CHEMISTRY Ca Norm 1.16 1.16 - 02/21 Normal [facility] 1.30 Medical Center CHEMISTRY Ca Ion mgdL 4.4 4.65 - 02/21 LOW [place] 5.20 /2010 Medical Center CHEMISTRY AGAP 16.9 10.0 - 02/21 Normal [place] 20.0 Medical Center CHEMISTRY BUN 6.0 7 - 22 02/21 LOW [facility] Center CHEMISTRY Creatinine 0.4 0.5 - 1.4 02/21 LOW [facility] Lvl Medical Center CHEMISTRY Glucose Lvl 154.0 02/21 NA <sup>6</sup>I [place] nterpretive Medical Data: Center Reference Ranges : 0 - 7 days : 41 - 90 mg/dL 7 days - 150 yrs : 70 - 99 mg/dL (fasting), based on the clinical recommendatio ns of the [place] [employer]. CHEMISTRY Potassium 4.9 3.5 - 5.1 02/21 Normal [facility] Lvl Medical Center CHEMISTRY Sodium Lvl [...] HEMATOLOGY Eosinophils 0.6 0.0 - 0.5 02/21 [facility] [place] # [facility] HEMATOLOGY Monocytes # 0.9 0.0 - 0.8 02/21 [facility] [place] [facility] HEMATOLOGY Basophils # 0.0 0.0 - 0.2 02/21 Normal [place] [facility] HEMATOLOGY Eosinophils 6.9 0.0 - 4.0 02/21 [facility] [place] [facility] HEMATOLOGY Monocytes 9.6 2.0 - 12.0 02/21 Normal [facility] HEMATOLOGY Segs-Bands # 5.2 1.5 - 8.1 02/21 Normal [facility] [place] HEMATOLOGY Basophils 0.3 0.0 - 1.0 02/21 [...] Center HEMATOLOGY MCH 32.7 27.0 - 02/21 [facility] [place] 31.0 Medical Center HEMATOLOGY RBC [...] Ca Norm mgdL 4.08 4.65 - 02/19 [facility] [place] 5. Medical Center CHEMISTRY Ca Ion mgdL 4.12 4.65 - 02/19 LOW [place] 5.20 Medical Center CHEMISTRY Ca Ion 1.03 1.16 - 02/19 LOW [place] 1.30 Medical Center CHEMISTRY AST 66.0 0 - 37 02/19 [facility] Medical Center CHEMISTRY Bili Total 0.8 0.2 - 1.3 02/19 Normal Medical Center CHEMISTRY Albumin Lvl 2.3 3.5 - 5.0 02/19 LOW Medical Center CHEMISTRY Total 4.8 6.4 - 8.4 02/19 LOW [place] [facility] CHEMISTRY ALT 67.0 0 - 65 02/19 [facility] Center CHEMISTRY Globulin 2.5 2.0 - 4.0 02/19 Normal [facility] CHEMISTRY A/G Ratio 0.9 0.7 - 1.6 02/19 Normal [facility] CHEMISTRY Alk Phos 155.0 39 - 136 02/19 [facility] CHEMISTRY B/C Ratio 20.0 6 - 25 02/19 Normal [facility] [place] HEMATOLOGY PTT 29.4 22.9 - 02/19 Normal [...] THERAPY. HEMATOLOGY RBC 3.4 4.20 - 02/19 [facility] [place] 5.40 /2010 [facility] Center HEMATOLOGY MCH 32.2 27.0 - 02/19 [facility] [place] 31.0 [facility] HEMATOLOGY MCV 95.7 81.0 - 02/19 Normal [facility] 99.0 /2010 [facility] HEMATOLOGY MCHC 33.6 32.0 - 02/19 [facility] [place] 36.0 /2010 [facility] HEMATOLOGY RDW 16.7 11.5 - 02/19 [facility] [place] 14.5 [facility] HEMATOLOGY MPV 7.8 7.4 - 10.4 02/19 Normal [facility] Center HEMATOLOGY Platelet 173.0 133 - 450 02/19 Normal [facility] HEMATOLOGY WBC 7.4 3.7 - 10.4 02/19 Normal [facility] HEMATOLOGY Monocytes 8.7 2.0 - 12.0 02/19 Normal [facility] HEMATOLOGY Lymphocytes 15.6 20.0 - 02/19 [facility] [place] 40.0 /2010 [facility] HEMATOLOGY Lymphocytes 1.1 1.0 - 5.5 02/19 [...] 0.6 0.0 - 1.0 02/19 Normal [place] [facility] HEMATOLOGY Segs 69.8 45.0 - 02/19 Normal [place] 75.0 Medical Center HEMATOLOGY Eosinophils 0.4 0.0 - 0.5 02/19 [place] # /2010 [facility] Center HEMATOLOGY Basophils # 0.0 0.0 - 0.2 02/19 [place] [facility] Center CHEMISTRY Lactic Acid 1.1 0.5 - 2.2 02/19 Normal [facility] Lvl /2010 [facility] Microbiolog Culture: 02/19 [facility] y Resistant [facility]inetob[facility] Center r Screen Microbiolog Culture: 02/19 [facility] y MRSA /2010 [facility] Center Microbiolog Culture: 02/19 [facility] y Anaerobic [facility] Center Microbiolog Culture: 02/19 [facility] y Aspirate/Bod [facility] Center Fluid/Tissue CHEMISTRY POC A Glu 109.0 65 - 110 02/19 Normal [facility] CHEMISTRY POC A LA 0.6 0.5 - 2.2 02/19 Normal [facility] CHEMISTRY POC A Ca Ion 1.08 1.16 - 02/19 [facility] 1.30 [facility] CHEMISTRY POC A Na 140.0 135 - 145 02/19 Normal [facility] CHEMISTRY POC A Hct 29.0 36.0 - 02/19 LOW [place] 48.0 [facility] CHEMISTRY POC A K 3.3 3.5 - 5.1 02/19 LOW [facility] CHEMISTRY POC A O2 Sat 100.0 95.0 - 02/19 Normal [facility] 100.0 [facility] CHEMISTRY POC A HCO3 22.0 22 - 26 02/19 Normal [facility] CHEMISTRY POC A BE -4.0 -2-2 - 2 02/19 [facility] CHEMISTRY POC A Source ART 02/19 NA [facility] CHEMISTRY POC A pH 7.33 7.35 - 02/19 LOW [facility] 7. Medical Center CHEMISTRY POC A PCO2 41.0 35 - 45 02/19 Normal Medical Center CHEMISTRY POC A Temp 37.0 02/19 NA [facility] CHEMISTRY POC A PO2 433.0 80 - 100 02/19 HI [facility] Center Microbiolog Culture: 02/19 [place] Aspirate/Bod [facility] y Center Fluid/Tissue Microbiolog Culture: CSF 02/19 [place] w/Gram Stain /2010 [facility] BODY FLUIDS Protein CSF 39.0 15 - 45 02/19 Normal [facility] BODY FLUIDS Glucose CSF 70.0 45 - 80 02/19 Normal [facility] BODY FLUIDS WBC CSF 1.0 0 - 5 02/19 Normal [facility] BODY FLUIDS Color CSF Light Red >Colorless 02/19 [place] *ABN* Medical (02/19/2011 11:00:00) ?? Center BODY FLUIDS Clarity CSF Slight >Clear 02/19 ABN [place] *ABN* Medical (02/19/2011 11:00:00) ?? Center BODY FLUIDS Supernat CSF Colorless >Colorless 02/19 Normal [facility] (02/19/2011 11:00:00) ?? [facility] Center BODY FLUIDS RBC CSF 2885.0 0 - 0 02/19 HI [facility] Center BODY FLUIDS Tube Num CSF [id number] 02/19 [place] (02/19/2011 11:00:00) ?? [facility] CHEMISTRY POC A Glu 107.0 65 - 110 02/19 Normal [facility] Center CHEMISTRY POC A K 3.2 3.5 - 5.1 02/19 LOW [facility] CHEMISTRY POC A Ca Ion 1.1 1.16 - 02/19 LOW [facility] 1.30 [facility] Center CHEMISTRY POC A LA 0.7 0.5 - 2.2 02/19 Normal [facility] CHEMISTRY POC A Source ART 02/19 NA [facility] CHEMISTRY POC A pH 7.35 7.35 - 02/19 LOW [facility] 7.45 [facility] Center [...] Center BLOOD BANK Antibody Negative 02/19 Normal [facility] RESULTS Scrn (02/19/2011 10:33:00) ?? Medical [...] Na 136.0 135 - 145 02/19 Normal [facility] CHEMISTRY POC A pH 7.43 7.35 - [...] on the clinical recommendatio ns of the [place] [employer]. HEMATOLOGY Lymphocytes 2.4 1.0 - 5.5 02/19 [place] [facility] HEMATOLOGY Monocytes # 0.7 0.0 - 0.8 02/19 Normal Medical Center HEMATOLOGY Basophils # 0.0 0.0 - 0.2 02/19 Normal Medical Center HEMATOLOGY Eosinophils 0.6 0.0 - 0.5 02/19 [facility] [place] [facility] [place] HEMATOLOGY Segs-Bands # 2.4 1.5 - 8.1 02/19 Normal Medical Center HEMATOLOGY Monocytes 10.9 2.0 - 12.0 02/19 Normal Medical Center HEMATOLOGY Basophils 0.8 0.0 - 1.0 02/19 Normal Medical Center HEMATOLOGY Eosinophils 9.4 0.0 - 4.0 02/19 [facility] Medical Center HEMATOLOGY Lymphocytes 39.3 20.0 - [...] HEMATOLOGY PT 13.2 12.0 - 02/19 Normal [facility] 14.7 [facility] Center HEMATOLOGY PTT 30.3 22.9 - 02/19 Normal <sup>[place]</sup> [place] 35.8 /2010 Interpretive Medical Data: Heparin Center Therapeutic Range: 57 - 92 Seconds BEDSIDE Gluc POC 142.0 65 - 110 02/19 [place] <sup>1</sup>I [facility] GLUCOSE [facility] [place] [facility] nterpretive Medical TESTING Data: Center Upper Reportable Limit: 200 mg/dL. BEDSIDE Comment1 Notify 02/19 NA [place] GLUCOSE RENAY/ /2010 Medical TESTING Center BEDSIDE Gluc POC 153.0 65 - 110 02/19 [place] <sup>2</sup>I [facility] GLUCOSE [facility] [place] [facility] nterpretive Medical TESTING Data: [place] Upper Reportable Limit: 200 mg/dL. BEDSIDE Comment1 Notify 02/19 NA [place] GLUCOSE RENAY/ /2010 Medical TESTING Center BEDSIDE Gluc POC 149.0 65 - 110 02/19 [place] <sup>3</sup>I [facility] GLUCOSE [place] /2010 nterpretive Medical TESTING Data: Center Upper Reportable Limit: 200 mg/dL. BEDSIDE Comment1 Notify 02/18 NA [facility] GLUCOSE RN/MD /2010 Medical TESTING Center HEMATOLOGY MCV 94.3 81.0 - 02/18 Normal [place] 99.0 /2010 Medical Center HEMATOLOGY Hct 33.1 36.0 - 02/18 LOW [place] 48.0 Medical Center HEMATOLOGY RDW 16.6 11.5 - 02/18 HI [place] 14.5 Medical Center HEMATOLOGY MCH 32.8 27.0 - 02/18 [facility] [place] 31.0 Medical Center HEMATOLOGY MCHC [...] Center HEMATOLOGY MCH 32.7 27.0 - 02/15 [facility] [place] 31.0 /2010 Medical Center HEMATOLOGY MCV 95.1 81.0 - 02/15 Normal [place] 99.0 Medical Center HEMATOLOGY MCHC 34.3 32.0 - 02/15 Normal [place] 36.0 Medical Center HEMATOLOGY Platelet 117.0 133 - 450 02/15 LOW Medical Center HEMATOLOGY RDW 16.5 11.5 - 02/15 [facility] [place] 14.5 Medical Center HEMATOLOGY WBC 12.9 [...] 0.0 - 0.8 02/15 [place] [facility] HEMATOLOGY Monocytes 4.8 2.0 - 12.0 02/15 Normal [facility] HEMATOLOGY Lymphocytes 26.8 20.0 - 02/15 Normal [place] 40.0 /2010 Medical Center HEMATOLOGY Lymphocytes 3.5 1.0 - 5.5 02/15 [place] # /2010 [facility] HEMATOLOGY Segs-Bands # 8.3 1.5 - 8.1 02/15 [place] [facility] HEMATOLOGY Basophils 0.8 0.0 - 1.0 02/15 Normal [facility] HEMATOLOGY Eosinophils 3.0 0.0 - 4.0 02/15 [place] [facility] HEMATOLOGY Segs 64.6 45.0 - 02/15 Normal [place] 75.0 [facility] CHEMISTRY Globulin 3.1 2.0 - 4.0 02/13 Normal [facility] CHEMISTRY Albumin Lvl 2.7 3.5 - 5.0 02/13 LOW [facility] CHEMISTRY Total 5.8 6.4 - 8.4 02/13 LOW [facility] CHEMISTRY B/C Ratio 43.0 6 - 25 02/13 [facility] CHEMISTRY A/G Ratio 0.9 0.7 - 1.6 02/13 Normal [facility] CHEMISTRY ALT 52.0 0 - 65 02/13 Normal [facility] CHEMISTRY Alk Phos 183.0 39 - 136 02/13 [facility] CHEMISTRY eGFR >60.0 02/13 NA <sup>6</sup>R esult Medical Comment: Center Expected eGFR for >20 yr. age group: >=60 ml/min/1.73 sq m The eGFR calculation is not valid in or for persons < 18 years of age. From [employer] (NKDEP) CHEMISTRY AGAP 16.9 10.0 - 02/13 Normal [place] 20.0 [facility] CHEMISTRY Calcium Lvl 8.5 8.5 - 10.5 02/13 Normal [facility] CHEMISTRY Bili Total 0.6 0.2 - 1.3 02/13 Normal [facility] Center CHEMISTRY AST 49.0 0 - 37 02/13 [facility] CHEMISTRY Chloride Lvl 97.0 95 - 109 02/13 Normal [facility] CHEMISTRY Potassium 4.9 3.5 - 5.1 02/13 Normal <sup>5</sup>R [facility] esult Medical Comment: Center Specimen Moderately Hemolyzed. CHEMISTRY Creatinine 0.4 0.5 - 1.4 02/13 LOW [facility] Medical Center CHEMISTRY Sodium Lvl [...] on the clinical recommendatio ns of the [place] [employer]. CHEMISTRY BUN 17.0 7 - 22 02/13 Normal [facility] CHEMISTRY CO2 25.0 24 - 32 02/13 Normal [facility] Center CHEMISTRY AGAP 18.6 10.0 - 02/12 Normal . [facility] Center CHEMISTRY Calcium Lvl 8.3 8.5 - 10.5 02/12 LOW [facility] Center CHEMISTRY Glucose Lvl 63.0 02/12 NA <sup>10</sup> [facility] Interpretive Medical Data: Center Reference Ranges : 0 - 7 days : 41 - 90 mg/dL 7 days - 150 yrs : 70 - 99 mg/dL (fasting), based on the clinical recommendatio ns of the [place] [employer]. CHEMISTRY BUN 19.0 7 - 22 02/12 Normal [facility] Center CHEMISTRY Creatinine 0.7 0.5 - 1.4 02/12 Normal [facility] Center CHEMISTRY Sodium Lvl 135.0 [...] Basophils 0.7 0.0 - 1.0 02/12 Normal [facility] HEMATOLOGY Segs-Bands # 12.2 1.5 - 8.1 02/12 [facility] HEMATOLOGY Monocytes 5.5 2.0 - 12.0 02/12 Normal [facility] HEMATOLOGY Eosinophils 1.1 0.0 - 4.0 02/12 Normal [facility] HEMATOLOGY Segs 66.2 45.0 - 02/12 Normal [place] 75.0 Medical Center HEMATOLOGY Lymphocytes 26.5 20.0 - 02/12 Normal [place] 40.0 Medical Center CHEMISTRY Magnesium 1.8 1.8 - 2.4 02/11 Normal [facility] CHEMISTRY AST 57.0 0 - 37 02/11 [facility] CHEMISTRY Total 6.8 6.4 - 8.4 02/11 Normal Protein [facility] CHEMISTRY Albumin Lvl 3.2 3.5 - 5.0 02/11 LOW [facility] CHEMISTRY Globulin 3.6 2.0 - 4.0 02/11 Normal [facility] CHEMISTRY A/G Ratio 0.9 0.7 - 1.6 02/11 Normal [facility] CHEMISTRY ALT 59.0 0 - 65 02/11 Normal [facility] CHEMISTRY Alk Phos 258.0 39 - 136 02/11 [facility] [facility] CHEMISTRY Bili Total 0.7 0.2 - 1.3 02/11 Normal [facility] CHEMISTRY B/C Ratio 45.0 6 - 25 02/11 [facility] Medical Center HEMATOLOGY Anisocyte 1+ >None Seen 02/11 ABN [facility] *ABN* Medical (02/11/2011 14:00:00) ?? Center BEDSIDE Comment2 Sliding 02/11 NA [facility] GLUCOSE Scale Medical TESTING Center STOOL TESTS Fecal None Seen 4 02/11 Normal <sup>4</sup>I [facility] Leukocyte (02/11/2011 00:59:00) ?? nterp retive Medical Data: A Value Center of None Seen, Rare, or Few is Normal. BEDSIDE Comment2 Sliding 02/11 NA [facility] GLUCOSE Medical TESTING Center CHEMISTRY eGFR [...] Lvl 3.1 3.5 - 5.0 02/10 LOW [facility] CHEMISTRY ALT 64.0 0 - 65 02/10 Normal [facility] CHEMISTRY Total 6.1 6.4 - 8.4 02/10 LOW [facility] CHEMISTRY Bili Total 0.5 0.2 - 1.3 02/10 Normal [facility] Center CHEMISTRY Alk Phos 235.0 39 - 136 02/10 [facility] HEMATOLOGY Polychrom Slight >None Seen 02/08 Normal [facility] (02/08/2011 05:19:00) ?? [facility] Center HEMATOLOGY Hypochrom Slight >None Seen 02/08 [facility] (02/08/2011 05:19:00) ?? Medical Center HEMATOLOGY Anisocyte 1+ >None Seen 02/08 [facility] *ABN* Medical (02/08/2011 05:19:00) ?? Center HEMATOLOGY Plt Morph Normal 02/08 Normal [facility] (02/08/2011 05:19:00) ?? Medical Center BEDSIDE Comment2 Sliding 02/07 NA [facility] GLUCOSE Scale Medical TESTING Center HEMATOLOGY Bands 0.0 0.0 - 11.0 02/06 Normal Medical Center BLOOD BANK Antibody Negative 02/05 Normal [facility] RESULTS Scrn (02/05/2011 14:12:00) ?? Medical Center BLOOD BANK ABO/Rh O NEG 02/05 Unknown [facility] Medical Center CHEMISTRY Total CK 64.0 - 191 02/04 Normal Medical Center CHEMISTRY Troponin-I 0.03 0.00 - 02/04 Normal [facility] 0.40 Medical Center CHEMISTRY Total CK 71.0 - 02/03 Normal Medical Center CHEMISTRY Troponin-I 0.05 0.00 - 02/03 Normal [facility] 0. Medical Center Microbiolog Culture: 02/02 [facility] y Urine Medical Center URINALYSIS UA ?? 0.1 - 1.0 02/02 [facility] Urobilinogen Medical Center URINALYSIS UA Sq Epi None Seen 02/02 [facility] Medical Center URINALYSIS UA Leuk Est Negative >Negative 02/02 Normal [place] (02/02/2011 17:21:00) ?? Medical Center URINALYSIS UA RBC <1.0 0 - 2 02/02 Normal Medical Center URINALYSIS UA Bacteria Occasional /HPF >None Seen 02/02 [facility] * Medical (02/02/2011 17:21:00) ?? Center URINALYSIS UA Nitrite Negative >Negative 02/02 [place]02/02/[place] 17:21:00) ?? Medical Center URINALYSIS UA Ketones Negative mg/dL >Negative 02/02 [facility] * Medical (02/02/2011 17:21:00) ?? Center URINALYSIS UA Bili Negative >Negative 02/02 [facility] Medical (02/02/2011 17:21:00) ?? Center URINALYSIS UA Blood Negative >Negative 02/02 Normal [facility] (02/02/2011 17:21:00) ?? Medical Center URINALYSIS UA Protein Negative mg/dL >Negative 02/[address] [facility] [place] (02/02/2011 17:21:00) ?? /2010 [facility] Center URINALYSIS UA Glucose Negative mg/dL >Negative 02/[address] [facility] [place] *NA* Medical (02/02/2011 17:21:00) ?? Center URINALYSIS UA Color Light Yellow >Yellow 02/02 NA [facility] *NA* Medical (02/02/2011 17:21:00) ?? Center URINALYSIS UA Turbidity Clear >Clear 02/02 Normal [facility] (02/02/2011 17:21:00) ?? [facility] Center URINALYSIS UA Spec Grav 1.004 <<=1.030 02/02 Normal [facility] URINALYSIS UA pH 7.0 5.0 - 8.0 02/02 Normal [facility] CHEMISTRY T4 Free 0.98 0.76 - 02/01 Normal [facility] 1.46 [facility] CHEMISTRY TSH 0.711 0.360 - 02/01 Normal [facility] 3.740 [facility] IMMUNOLOGY Prealbumin 19.4 18.0 - 02/01 Normal [facility] 45.0 Medical Center BEDSIDE Comment1 Notify 01/31 [facility] GLUCOSE RN/MD Medical TESTING Center BEDSIDE Gluc POC 109.0 65 - 110 01/31 Normal <sup>2</sup>I [facility] GLUCOSE Lifscn nterpretive Medical TESTING Data: Center Upper Reportable Limit: 200 mg/dL. CHEMISTRY Phosphorus 2.9 2.5 - 4.5 01/31 Normal [facility] CHEMISTRY CO2 24.0 24 - 32 01/31 Normal [facility] CHEMISTRY Calcium Lvl 7.7 8.5 - 10.5 01/31 LOW [facility] CHEMISTRY Glucose Lvl 100.0 01/31 NA <sup>5</sup>I [place] nterpretive Medical Data: Center Reference Ranges : 0 - 7 days : 41 - 90 mg/dL 7 days - 150 yrs : 70 - 99 mg/dL (fasting), based on the clinical recommendatio ns of the [place] [employer]. CHEMISTRY Sodium Lvl 138.0 135 - 145 01/31 Normal [facility] CHEMISTRY Potassium 3.9 3.5 - 5.1 01/31 Normal [facility] Medical Center CHEMISTRY BUN 17.0 7 - 22 01/31 Normal Medical Center CHEMISTRY Creatinine 0.7 0.5 - 1.4 01/31 Normal [facility] Medical Center CHEMISTRY Chloride Lvl 100.0 95 - 109 01/31 Normal Medical Center CHEMISTRY AGAP 17.9 10.0 - 01/31 Normal [place] 20.0 Medical Center CHEMISTRY Magnesium 1.9 1.8 - 2.4 01/31 Normal [facility] Medical Center CHEMISTRY Ca Norm 1.13 1.16 - 01/31 LOW [place] 1. Medical Center CHEMISTRY Ca Ion 1.09 1.16 - 01/31 LOW [place] 1. Medical Center CHEMISTRY Ca Norm mgdL 4.52 4.65 - 01/31 LOW [facility] 5. Medical Center CHEMISTRY Ca Ion mgdL 4.36 4.65 - 01/31 LOW [facility] 5. Medical Center HEMATOLOGY Large Plt Slight >None Seen 01/31 ABN [place] *ABN* /2010 Medical (01/31/2011 03:36:00) ?? Center HEMATOLOGY Monocytes # 1.4 0.0 - 0.8 01/31 [facility] [place] [facility] [place] HEMATOLOGY Myelocytes 3.0 <<=0.0 01/31 [facility] HEMATOLOGY Segs-Bands # 18.6 1.5 - 8.1 01/31 [facility] [place] [facility] HEMATOLOGY Lymphocytes 1.6 1.0 - 5.5 01/31 [place] # /2010 Medical Center HEMATOLOGY Metamyelocyt 2.0 0.0 - 1.0 01/31 [facility] [place] [facility] HEMATOLOGY Lymphocytes 7.0 20.0 - 01/31 LOW [place] 40.0 Medical Center HEMATOLOGY Monocytes 6.0 2.0 - 12.0 01/31 Normal Medical Center HEMATOLOGY Segs 79.0 45.0 - 01/31 [facility] [place] 75.0 Medical Center HEMATOLOGY Bands 2.0 0.0 - 11.0 01/31 Normal Medical Center HEMATOLOGY Hypochrom Slight >None Seen 01/31 [facility] (01/31/2011 03:36:00) ?? /2010 Medical Center HEMATOLOGY Polychrom Slight >None Seen 01/31 Normal [facility] (01/31/2011 03:36:00) ?? Medical Center HEMATOLOGY Rouleaux Present >None Seen 01/31 ABN [facility] *ABN* /2010 Medical (01/31/2011 03:36:00) ?? Center HEMATOLOGY Atypical 0.0 <<=0.0 01/31 Normal [facility] Lymphs /2010 Medical Center HEMATOLOGY Promyelocyte 1.0 <<=0.0 01/31 HI [facility] s /2010 Medical Center HEMATOLOGY RDW 15.3 11.5 - 01/31 HI [facility] 14.5 /2010 Medical Center HEMATOLOGY MPV 10.1 7.4 - 10.4 01/31 Normal Medical Center HEMATOLOGY Platelet 166.0 133 - 450 01/31 Normal Medical Center HEMATOLOGY Hct 37.3 36.0 - 01/31 Normal [facility] 48.0 /2010 Medical Center HEMATOLOGY MCHC 32.7 32.0 - 01/31 Normal [facility] 36.0 /2010 Medical Center HEMATOLOGY MCV 94.8 81.0 - 01/31 Normal [facility] 99.0 /2010 Medical Center HEMATOLOGY MCH 31.0 27.0 - 01/31 Normal [facility] 31.0 Medical Center HEMATOLOGY WBC 23.0 3.7 - 10.4 01/31 HI [facility] Center HEMATOLOGY RBC 3.93 4.20 - 01/31 LOW [facility] 5.40 /2010 [facility] Center HEMATOLOGY Hgb 12.2 12.0 - 01/31 Normal [facility] 16.0 Medical Center BEDSIDE Gluc POC 188.0 65 - 110 01/31 HI <sup>3</sup>I [facility] GLUCOSE Lifms nterpretive Medical TESTING Data: [place] Upper Reportable Limit: 200 mg/dL. BEDSIDE Comment1 Notify 01/31 NA [facility] GLUCOSE RENAY/ Medical TESTING Center BEDSIDE Gluc POC 233.0 65 - 110 01/31 [place] <sup>4</sup>I [facility] GLUCOSE Lifsc nterpretive Medical TESTING Data: [place] Upper Reportable Limit: 200 mg/dL. BEDSIDE Comment1 Notify 01/30 NA [facility] GLUCOSE RENAY/ 2011 Medical TESTING Center CHEMISTRY Albumin Lvl 2.7 3.5 - 5.0 01/29 LOW Medical Center CHEMISTRY Phosphorus 3.7 2.5 - 4.5 01/29 Normal Medical Center CHEMISTRY Ca Ion mgdL 4.2 4.65 - 01/29 LOW [place] 5. Medical Center CHEMISTRY Ca Norm mgdL 4.24 4.65 - 01/29 LOW [facility] 5. Medical Center CHEMISTRY Ca Ion 1.05 1.16 - 01/29 LOW [place] 1. Medical Center CHEMISTRY Ca Norm 1.06 1.16 - 01/29 LOW [facility] 1. Medical Center CHEMISTRY Magnesium 2.4 1.8 - 2.4 01/29 Normal [facility] Lvl Medical Center CHEMISTRY AGAP 15.0 10.0 - 01/29 Normal [facility] 20.0 Medical Center CHEMISTRY BUN 23.0 7 - 22 01/29 [facility] CHEMISTRY Creatinine 0.8 0.5 - 1.4 01/29 Normal [facility] Medical Center CHEMISTRY Glucose Lvl 232.0 01/29 NA <sup>6</sup>I [place] nterpretive Medical Data: Center Reference Ranges : 0 - 7 days : 41 - 90 mg/dL 7 days - 150 yrs : 70 - 99 mg/dL (fasting), based on the clinical recommendatio ns of the [place] [employer]. CHEMISTRY Potassium 4.0 3.5 - 5.1 01/29 Normal [facility] Medical Center CHEMISTRY Sodium Lvl 144.0 135 - 145 01/29 Normal Medical Center CHEMISTRY Chloride Lvl 109.0 95 - 109 01/29 Normal Medical Center CHEMISTRY CO2 24.0 24 - 32 01/29 Normal Medical Center CHEMISTRY Calcium Lvl 7.8 8.5 - 10.5 01/29 [place] [facility] [place] HEMATOLOGY Large Plt Slight >None Seen 01/29 ABN [facility] *ABN* Medical (01/29/2011 10:02:00) ?? Center HEMATOLOGY Polychrom Slight >None Seen 01/29 Normal [facility] (01/29/2011 10:02:00) ?? Medical Center HEMATOLOGY Atypical 0.0 <<=0.0 01/29 Normal [facility] Lymphs Medical Center HEMATOLOGY NRBC 1.0 01/29 NA Medical Center HEMATOLOGY Segs 81.0 45.0 - 01/29 [facility] [place] 75.0 /2010 Medical Center HEMATOLOGY Lymphocytes 9.0 20.0 - 01/29 LOW [place] 40.0 /2010 Medical Center HEMATOLOGY Monocytes 5.0 2.0 - 12.0 01/29 Normal Medical Center HEMATOLOGY Myelocytes 1.0 <<=0.0 01/29 [facility] HEMATOLOGY Metamyelocyt 2.0 0.0 - 1.0 01/29 [facility] [place] [facility] HEMATOLOGY Bands 2.0 0.0 - 11.0 01/29 Normal Medical Center HEMATOLOGY Monocytes # 1.0 0.0 - 0.8 01/29 [facility] [place] Medical Center HEMATOLOGY Lymphocytes 1.8 1.0 - 5.5 01/29 [place] # /2010 Medical Center HEMATOLOGY Segs-Bands # 16.3 1.5 - 8.1 01/29 [facility] [place] /2010 Medical Center HEMATOLOGY MPV 9.4 7.4 - 10.4 01/29 Normal Medical Center HEMATOLOGY Hct 33.9 36.0 - 01/29 LOW [place] 48.0 Medical Center HEMATOLOGY MCV 94.0 81.0 - 01/29 Normal [place] 99.0 /2010 Medical Center HEMATOLOGY MCH 31.5 27.0 - 01/29 [facility] [place] 31.0 Medical Center HEMATOLOGY MCHC 33.6 32.0 - 01/29 [facility] [place] 36.0 /2010 Medical Center HEMATOLOGY RDW 16.1 11.5 - 01/29 [facility] [place] 14.5 Medical Center HEMATOLOGY Platelet 178.0 133 - 450 01/29 Normal Medical Center HEMATOLOGY WBC 19.6 3.7 - 10.4 01/29 [facility] Medical Center HEMATOLOGY Hgb 11.4 12.0 - 01/29 LOW [place] 16.0 Medical Center HEMATOLOGY RBC 3.61 4.20 - 01/29 LOW [place] 5.40 /2010 [facility] Center CHEMISTRY AGAP 14.2 10.0 - 01/28 Normal [place] 20.0 Medical Center CHEMISTRY Chloride Lvl 116.0 95 - 109 01/28 [facility] Medical Center CHEMISTRY Sodium Lvl 152.0 135 - 145 01/28 [facility] Medical Center CHEMISTRY Potassium 3.2 3.5 [...] on the clinical recommendatio ns of the [place] [employer]. CHEMISTRY BUN 21.0 7 - 22 01/28 Normal Medical Center CHEMISTRY Creatinine 0.7 0.5 - 1.4 01/28 Normal [facility] Medical Center CHEMISTRY Phosphorus 3.2 2.5 - 4.5 01/28 Normal Medical Center CHEMISTRY Magnesium 2.2 1.8 - 2.4 01/28 Normal [facility] Medical Center CHEMISTRY Ca Norm 1.09 1.16 - 01/28 LOW [place] 1. Medical Center CHEMISTRY Ca Ion 1.06 1.16 - 01/28 [facility] [place] 1. Medical Center CHEMISTRY Ca Norm mgdL 4.36 4.65 - 01/28 [facility] [place] 5. Medical Center CHEMISTRY Ca Ion mgdL 4.24 4.65 - 01/28 [facility] [place] 5. Medical Center HEMATOLOGY Platelet 144.0 133 - 450 01/28 Normal Medical Center HEMATOLOGY MPV 10.4 7.4 - 10.4 01/28 Normal Medical Center HEMATOLOGY MCH 31.1 27.0 - 01/28 [facility] [place] 31.0 Medical Center HEMATOLOGY MCHC 33.3 32.0 - 01/28 [facility] [place] 36.0 Medical Center HEMATOLOGY RDW 16.0 11.5 - 01/28 [facility] [place] 14.5 Medical Center HEMATOLOGY Hct 32.3 36.0 - 01/28 [facility] [place] 48.0 Medical Center HEMATOLOGY MCV 93.5 81.0 - 01/28 Normal [place] 99.0 Medical Center HEMATOLOGY RBC 3.45 4.20 - 01/28 [facility] [place] 5.40 Medical Center HEMATOLOGY Hgb 10.7 [...] CHEMISTRY Osmolality 317.0 280 - 300 01/27 [facility] CHEMISTRY POC A pH 7.56 7.35 - 01/27 HI [place] 7.45 Medical Center CHEMISTRY POC A PO2 150.0 80 - 100 01/27 [facility] Center CHEMISTRY POC A Source ART 01/27 NA [facility] CHEMISTRY POC A Temp 37.0 01/27 NA [facility] CHEMISTRY POC A BE 4.0 -2-2 - 2 01/27 [facility] Center CHEMISTRY POC A O2 Sat 100.0 95.0 - 01/27 Normal [place] 100.0 [facility] Center CHEMISTRY POC A HCO3 25.0 22 - 26 01/27 Normal [facility] CHEMISTRY POC A PCO2 28.0 35 - 45 01/27 CRIT [facility] CHEMISTRY Osmolality 305.0 280 - 300 01/27 [facility] Medical Center HEMATOLOGY PTT 25.2 22.9 - 08/29 Normal <sup>12</sup> [facility] Interpretive Medical Data: Heparin Center Therapeutic Range: 57 - 92 Seconds HEMATOLOGY PT 15.8 12.0 - 01/27 [facility] HEMATOLOGY INR 1.26 0.85 - 01/27 [place] <sup>9</sup>I [facility] 06.17 nterpretive Medical Data: Center RECOMMENDED RANGES FOR PROTIME INR: 2.0-3.0 for most medical and surgical thromboemboli c states. 2.5-3.5 for artificial heart valves and recurrent embolism. INR SHOULD BE USED ONLY FOR PATIENTS ON STABLE ANTICOAGULANT THERAPY. HEMATOLOGY Eosinophils 0.0 0.0 - 4.0 01/27 Normal [facility] HEMATOLOGY Basophils 0.2 0.0 - 1.0 01/27 Normal [facility] HEMATOLOGY Eosinophils 0.0 0.0 - 0.5 01/27 Normal [facility] HEMATOLOGY Basophils # 0.0 0.0 - 0.2 01/27 Normal [facility] CHEMISTRY Osmolality 306.0 280 - 300 01/26 [facility] HEMATOLOGY Basophils # 0.0 0.0 - 0.2 01/26 Normal [facility] HEMATOLOGY Eosinophils 0.0 0.0 - 4.0 01/26 Normal [facility] HEMATOLOGY Eosinophils 0.0 0.0 - 0.5 01/26 Normal [facility] HEMATOLOGY Basophils 0.1 0.0 - 1.0 01/26 Normal [facility] HEMATOLOGY PTT 29.8 22.9 - 01/26 Normal <sup>13</sup> [facility] Interpretive Medical Data: Heparin Center Therapeutic Range: 57 - 92 Seconds HEMATOLOGY PT 15.4 12.0 - 01/26 [facility] HEMATOLOGY INR 1.22 0.85 - 01/26 [place] <sup>10</sup> [facility] 06.17 Interpretive Medical Data: Center RECOMMENDED RANGES FOR PROTIME INR: 2.0-3.0 for most medical and surgical thromboemboli c states. 2.5-3.5 for artificial heart valves and recurrent embolism. INR SHOULD BE USED ONLY FOR PATIENTS ON STABLE ANTICOAGULANT THERAPY. CHEMISTRY POC A Glu 108.0 65 - 110 01/26 Normal [facility] CHEMISTRY POC A LA 0.8 0.5 - 2.2 01/26 Normal [facility] CHEMISTRY POC A Ca Ion 1.17 1.16 - 01/26 Normal [place] 1.30 [facility] CHEMISTRY POC A K 3.6 3.5 - 5.1 01/26 Normal [facility] CHEMISTRY POC A Na 140.0 135 - 145 01/26 Normal [facility] CHEMISTRY POC A PO2 80.0 80 - 100 01/26 Normal [facility] CHEMISTRY POC A PCO2 40.0 35 - 45 01/26 Normal [facility] CHEMISTRY POC A Source ART 01/26 NA [facility] CHEMISTRY POC A Temp 37.0 01/26 NA [facility] CHEMISTRY POC A pH 7.4 7. - 01/26 Normal [place] 7. [facility] CHEMISTRY POC A Hct 34.0 36.0 - 01/26 LOW [place] 48.0 [facility] CHEMISTRY POC A BE 0.0 -2-2 - 2 01/26 Normal [facility] CHEMISTRY POC A O2 Sat 96.0 95.0 - 01/26 Normal [place] 100.0 [facility] CHEMISTRY POC A HCO3 25.0 22 - 26 01/26 Normal [facility] CHEMISTRY POC A O2 Sat 96.0 95.0 - 01/26 Normal [place] 100.0 [facility] CHEMISTRY POC A K 3.6 3.5 - 5.1 01/26 Normal [facility] CHEMISTRY POC A LA 0.8 0.5 - 2.2 01/26 Normal [facility] CHEMISTRY POC A Glu 113.0 65 - 110 01/26 HI [facility] CHEMISTRY POC A Source ART 01/26 NA [facility] CHEMISTRY POC A Temp 37.0 01/26 NA [facility] CHEMISTRY POC A HCO3 25.0 22 - 26 01/26 Normal [facility] CHEMISTRY POC A PO2 79.0 80 - 100 01/26 LOW [facility] CHEMISTRY POC A PCO2 38.0 35 - 45 01/26 Normal [facility] CHEMISTRY POC A pH 7.42 7.35 - 01/26 Normal [facility] 7.45 [facility] CHEMISTRY POC A BE 0.0 -2-2 - 2 01/26 Normal [facility] CHEMISTRY POC A Ca Ion 1.22 1.16 - 01/26 Normal [place] 1.30 [facility] CHEMISTRY POC A Na 138.0 135 - 145 01/26 Normal [facility] CHEMISTRY POC A Hct 36.0 36.0 - 01/26 Normal [facility] 48.0 [facility] CHEMISTRY POC A Hct 41.0 36.0 - 01/26 Normal [facility] 48.0 [facility] CHEMISTRY POC A Na 140.0 135 - 145 01/26 Normal [facility] CHEMISTRY POC A Ca Ion 1.05 1.16 - 01/26 LOW [facility] 1.30 [facility] CHEMISTRY POC A K 3.6 3.5 - 5.1 01/26 Normal [facility] CHEMISTRY POC A LA 0.8 0.5 - 2.2 01/26 Normal [facility] CHEMISTRY POC A Glu 107.0 65 - 110 01/26 Normal [facility] BLOOD BANK Antibody Negative 01/26 Normal [facility] RESULTS Scrn (01/26/2011 09:00:00) ?? [facility] BLOOD BANK ABO/Rh O NEG 01/26 Unknown [facility] HEMATOLOGY PTT 28.2 22.9 - 01/26 Normal [...] THERAPY. HEMATOLOGY PT 15.6 12.0 - 01/26 [facility] [place] 14.7 [facility] CHEMISTRY CK MB Index 0.4 0.0 - 2.5 01/25 Normal [facility] CHEMISTRY CK MB 1.1 0.5 - 3.6 01/25 Normal [facility] CHEMISTRY Myoglobin 141.0 25 - 72 01/25 [...] Acid 2.4 0.5 - 2.2 01/25 HI [facility] Lvl Medical Center HEMATOLOGY Target Cell [...] Center BLOOD BANK Antibody Negative 01/24 Normal [facility] RESULTS Scrn (01/24/2011 03:15:00) ?? Mobile [...] CHEMISTRY Troponin-I <0.02 0.00 - 01/23 Normal [facility] 0.40 Medical Center URINALYSIS UA Ketones TR 01/23 NA Medical Center URINALYSIS UA ?? 0.1 - 1.0 01/23 [facility] Urobilinogen [facility] Center URINALYSIS UA Sq Epi Occasional /LPF >Few [facility]/23 [facility] 05:29:00[facility] ?? Center URINALYSIS UA WBC <1.0 0 - 5 01/23 Normal Medical Center URINALYSIS UA Mucus Few /LPF >None Seen 01/23 [facility] (01/23/2011 05:29:00) ?? Center URINALYSIS UA RBC <1.0 0 - 2 01/23 Normal [facility] Center URINALYSIS UA Protein Negative mg/dL >Negative 01/[address] [facility] [place] (01/23/2011 05:29:00) ?? Medical Center URINALYSIS UA Nitrite Negative >Negative 01/23 [place] (01/23/[place] 05:29:00) ?? Medical Center URINALYSIS UA Leuk Est Negative >Negative 01/23 Normal [place] (01/23/2011 05:29:00) ?? Medical Center URINALYSIS UA Bili Negative >Negative 01/23 [facility] (01/23/2011 05:29:00) ?? Center URINALYSIS UA Glucose 150 mg/dL >Negative 01/23 ABN [place] *ABN Medical (01/23/2011 05:29:00) ?? Center URINALYSIS UA Blood Negative >Negative 01/23 Normal [facility] (01/23/2011 05:29:00) ?? [facility] Center URINALYSIS UA pH 5.0 5.0 - 8.0 01/23 Normal [facility] Center URINALYSIS UA Spec Grav 1.01 <<=1.030 01/23 [place] [facility] Center URINALYSIS UA Turbidity Clear >Clear 01/23 Normal [facility] (01/23/2011 05:29:00) ?? [facility] Center URINALYSIS UA Color Yellow >Yellow 01/23 NA [facility] *NA* Medical (01/23/2011 05:29:00) ?? Center BACTERIAL - MRSA by PCR Negative 1 01/23 Normal <sup>1</sup>I [facility] SEROLOGY (01/23/2011 05:00:00) ?? nterpr etive [...] an infectious diseases specialist. Microbiolog Culture: 01/23 [facility] y [facility] r Screen Pathology Reports No Data Provided for This Section Diagnostic Reports Report Value Date Source Esophagus BA swallow EXAM: FLUOROSCOPY MODIFIED BARIUM SWALLOW 0 02/24/2020 [facility] Medical function video DX DATE: 02/24/2020 [...] chin tuck and no aspiration was seen. [place] barium: Normal swallowing with spoon and cup [...] DX EXAM: [facility] CHEST [facility]: [facility], [address] [...] DX EXAM: XR CHEST 2 VIEWS 02/15/2020 [facility] DATE: 02/15/2020 19:44 CDT Center INDICATION: Respiratory distress - Possible MG e xacerbation COMPARISON: 12/14/2019 TECHNIQUE: PA and lateral chest radiographs IMPRESSION: 1. Left FELT CARBONIZER shunt and left Port-A-Cath are again seen. [...] EXAM: FLUOROSCOPY MODIFIED BARIUM SWALLOW 0 12/16/2019 [facility] function video DX DATE: 12/16/2019 0953 hours [...] Thin barium: Deep penetration without aspiration . [place] barium: Occasional flash penetration with out aspiration.. Pudding barium: Normal. Solid with barium: Normal. IMPRESSION: 1. Deep penetration without aspiration of thin barium. 2. Occasional flash penetration without aspirat ion of nectar barium. 3. Normal swallowing of pudding and solid consi stency barium. 4. Please also see detailed chart note by cristhian rowan. Abdomen 1 v for EXAM: XR ABDOMEN 1 VIEW 12/14/2019 [facility] Medical Placement DX DATE: 12/14/2019 8:54 AM CDT Cent er INDICATION: - post ngt ADDITIONAL INFORMATION: None. COMPARISON: None. TECHNIQUE: Limited AP view of the abdomen for tube placement assessment. Number of images: 1 FINDINGS: Transesophageal feeding tube: None Transesophageal suction tube: Side port and tip overlie the gastric fundus. Other tubes, lines and hardw are: FELT CARBONIZER shunt catheter tip overlies the left lower [...] AN ADDITIONAL PRELIMINARY OR FINALIZED VERSION. 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 ADDITIONAL INFORMATION: None. COMPARISON: None. TECHNIQUE: Oral barium contr ast of differing consistencies was given to the patient to assess swallowing mechanism. The study was performed in conjunction with speech pathology. FLUOROSCOPY TIME: 55 FLUOROSCOPY DOSE: 7.99 mGy DISCUSSION: The patient was given barium contrast of differe nt consistencies. Thin barium: Deep penetration. [place] barium: Deep penetration. Pudding barium: Normal. IMPRESSION: 1. Deep penetration with li quid consistency. No aspiration or penetration with pudding consistency. 2. Please also see detailed chart note by cristhian alston pathology. Chest 1view DX EXAM: XR CHEST 1 VIEW 12/12/2019 [facility] DATE: 12/12/2019 7:44 CDT Center INDICATION: - [...] DX EXAM: XR ABDOMEN 1 VIEW 12/11/2019 [facility] DATE: 12/11/2019 4:39 PM CDT [facility] INDICATION: - Confirm NG tube placement ADDITIONAL INFORMATION: None. COMPARISON: KUB 12/09/2019 TECHNIQUE: Single frontal image of the abdomen. FINDINGS: Lines and tubes: NG tube tip projects over the left upper quadrant and likely region of the gastric fundus with sidehole near the GE junction. FELT CARBONIZER shunt catheter with tip overlying the right [...] DX EXAM: XR ABDOMEN 1 VIEW 12/09/2019 [facility] DATE: 12/09/2019 12:36 CDT Center INDICATION: - [...] and hardw are: Again seen is a FELT CARBONIZER shunt tubing coursing over the left hemithorax. [...] DX EXAM: XR ABDOMEN 1 VIEW 12/08/2019 [facility] DATE: 12/08/2019 5:10 PM [facility]: - Assess feeding tube placement ADDITIONAL INFORMATION: None. COMPARISON: KUB 12/15/2019 TECHNIQUE: Single frontal image of the abdomen. FINDINGS: Lines and tubes: NG tube tip projects over th e gastric fundus with sidehole near the GE junction. 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 ADDITIONAL INFORMATION: 74-y ear-old female [...] differe nt consistencies. Thin barium: Deep penetration. [place] barium: Deep penetration. Pudding barium: Deep penetration. IMPRESSION: 1. Deep penetration with thin, nectar, and pudd ing barium. 2. Please also see detailed chart note by rcisthian alston pathology. Chest 1view DX EXAM: [facility]: [facility] 12:08 T Center INDICATION: [...] DX EXAM: XR ABDOMEN 1 VIEW 12/05/2019 [facility] DATE: 12/05/2019 20:36 T Center INDICATION: - [...] EXAM: FLUOROSCOPY MODIFIED BARIUM SWALLOW 0 12/01/2019 [employer] 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 ADDITIONAL INFORMATION: None. COMPARISON: None. TECHNIQUE: Oral barium contr ast of differing consistencies was given to the patient to assess swallowing mechanism. The study was performed in conjunction with speech pathology. FLUOROSCOPY TIME: 44 seconds FLUOROSCOPY DOSE: 6.75 mGy DISCUSSION: The patient was given barium contrast of differe nt consistencies. Thin barium: Normal. [place] barium: Normal. Pudding barium: Normal. Solid with barium: Normal. IMPRESSION: 1. Normal swallowing withou t aspiration or penetration of thin, nectar, pudding, and solid with barium. 2. Please also see detailed chart note by cristhian alston pathology. Ext Lower Venous EXAM: US BILATERAL LOWER EXTREMITY VENOUS DOPPL ER 11/28/2019 [facility] Scene[facility] Doppler Bilat US DATE: 11/28/2019 at 1108 [...] for EXAM: XR ABDOMEN 1 VIEW 11/26/2019 [facility] DX DATE: 11/26/2019 at 0119 hours Ce nter INDICATION: -Dobbhoff tube placement ADDITIONAL INFORMATION: None. COMPARISON: None. TECHNIQUE: Limited AP view of the abdomen for tube placement assessment. Number of images: 1. FINDINGS: Feeding tube: A feeding tube tip overlies the se cond portion of the duodenum. Enteric suction tube: None. Other tubes, lines and hardware: * FELT CARBONIZER shunt. * Partially visualized port catheter. * EKG leads overlie the patient. * Cholecystectomy clips in the right upper quad rant. Other: No other changes. IMPRESSION: 1. Feeding tube tip overlies the second portion of the duodenum. Chest 1view DX EXAM: XR CHEST 1 VIEW 11/24/2019 [facility] DATE: 11/24/2019 3:00 CDT Center INDICATION: [...] DX EXAM: XR CHEST 1 VIEW 11/22/2019 [facility] DATE: 11/22/2019 20:26 CDT Center INDICATION: [...] EXAM: MRI CERVICAL SPINE WITHOUT CONTRAST 2019 [facility] contrast MRI EXAM: MR thoracic spine without contrast Center EXAM: MRI lumbar spine without contrast DATE: 11/22/2019 10:36 AM CDT INDICATION: 74 years old Female patient with his tory of - fractures on ct. COMPARISON: Fall TECHNIQUE: Multiplanar, mult isequence noncontrast MR imaging of the cervical, thoracic and lumbar spine spine. FINDINGS: Limited motion degraded exam and Limited exam due to his poor udpfzx-sc-fxrwe ratio. MR cervical spine: Only axial gradient echo seq uences of the cervical spine are acquired with lots of motion artifacts and poor ckwynx-wa-zdgfo ratio. Evaluation of the cord signal intensity [...] xam and Limited exam due to poor bvelyx-kv-yrhib ratio, as detailed above. 2. Evaluation of the cord si gnal intensity is markedly limited due to motion artifacts and poor pjqssw-ha-goffg ratio. There is suggestion of STIR hyperintensity [...] EXAM: MRI CERVICAL SPINE WITHOUT CONTRAST 10/31 [facility] contrast MRI EXAM: MR thoracic spine without contrast Center EXAM: MRI lumbar spine without contrast DATE: 11/22/2019 10:36 AM CDT INDICATION: 74 years old Female patient with his tory of - fractures on ct. COMPARISON: Fall TECHNIQUE: Multiplanar, mult isequence noncontrast MR imaging of the cervical, thoracic and lumbar spine spine. FINDINGS: Limited motion degraded exam and Limited exam due to his poor uppued-zg-eqyam ratio. MR cervical spine: Only axial gradient echo seq uences of the cervical spine are acquired with lots of motion artifacts and poor iypdsv-ap-rnelc ratio. Evaluation of the cord signal intensity [...] xam and Limited exam due to poor bfqiwg-ox-wrtnk ratio, as detailed above. 2. Evaluation of the cord si gnal intensity is markedly limited due to motion artifacts and poor hquwdp-ra-nxwkz ratio. There is suggestion of STIR hyperintensity [...] EXAM: MRI CERVICAL SPINE WITHOUT CONTRAST 10/31 [facility] contrast MRI EXAM: MR thoracic spine without contrast Center EXAM: MRI lumbar spine without contrast DATE: 11/22/2019 10:36 AM CDT INDICATION: 74 years old Female patient with his tory of - fractures on ct. COMPARISON: Fall TECHNIQUE: Multiplanar, mult isequence noncontrast MR imaging of the cervical, thoracic and lumbar spine spine. FINDINGS: Limited motion degraded exam and Limited exam due to his poor ktuzqy-lj-pmroj ratio. MR cervical spine: Only axial gradient echo seq uences of the cervical spine are acquired with lots of motion artifacts and poor nejjci-cy-mslei ratio. Evaluation of the cord signal intensity [...] xam and Limited exam due to poor zqvyju-eu-bclhu ratio, as detailed above. 2. Evaluation of the cord si gnal intensity is markedly limited due to motion artifacts and poor yhxgkp-jg-vpyac ratio. There is suggestion of STIR hyperintensity [...] Esophagram w Water EXAM: FLUOROSCOPY ESOPHAGRAM 11/22/2019 [facility] Contrast DX DATE: 11/22/2019 9:56 CDT [...] Trauma EXAM: CT CHEST WITH CONTRAST 11/22/2019 [facility] Chest/Abd/Pelvis w IV EXAM: CT ABDOMEN AND [...] tip terminates at the left subclavian vein. FELT CARBONIZER shunt tubing terminates in the upper peritoneal [...] EXAM: CT ANGIOGRAM OF THE NECK 11/22/2019 [facility] DATE: 11/22/2019 8:10 CDT Center INDICATION: - [...] RIGHT HAND 3 VIEWS 11/22/2019 [facility] EXAM: XR RIGHT WRIST 4 VIEWS [...] EXAM: XR RIGHT HAND 3 VIEWS 11/22/2019 [facility] EXAM: XR RIGHT WRIST 4 [...] EXAM: XR RIGHT HAND 3 VIEWS 11/22/2019 [facility] EXAM: XR RIGHT WRIST 4 [...] EXAM: CT FACIAL BONES WITHOUT CONTRAST 0 [facility] contrast CT DATE: 11/22/2019 8:24 CDT Center [...] encephalomalacia are again noted. A left transfrontal FELT CARBONIZER shunt is noted. Soft tissues: No abnormality [...] Consult EXAM: CT CHEST WITHOUT CONTRAST 11/22/2019 [facility] CT DATE: 11/22/2019 at 0053 hours C [...] CT CERVICAL SPINE WITHOUT CONTRAST 0 11/22/2019 [facility] CT DATE: 11/21/2019 at 2239 hours C enter INDICATION: - TRAUMA, second interpretation req uested COMPARISON: Cervical spine CT 02/17/2019 TECHNIQUE: Noncontrast CT im ages of the cervical spine, obtained at [facility]. Axial, sagittal and coronal images provided. UT [...] Consult EXAM: CT BRAIN WITHOUT CONTRAST 11/22/2019 [facility]ot CT DATE: 11/22/2019 6:07 CDT Center INDICATION: Trauma, fall; tr ansferred for higher level of care, request for second interpretation of outside imaging. COMPARISON: CT brain from 03/02/2019 and MRI brai n from 02/22/2019 TECHNIQUE: Noncontrast axial imaging of the brain was acquired from the vertex to the skull base. Coronal and sagittal reformatted images were generated. 381 images. Imaging was performed at [facility] on 11/21/2019 at 10:47 PM . FINDINGS: [...] Consult EXAM: CT FACIAL BONES WITHOUT CONTRAST [facility] CT DATE: 11/21/2019 at 2239 hours C [...] CT EXAM: CT HEAD WITHOUT CONTRAST 03/02/2019 [facility] DATE: 03/02/2019 14:52 CDT Center INDICATION: 74 [...] are unchanged in size. Persistent 0.4 cm qdid-xg-wjviw midline shift. IMPRESSION: 1. No CT evidence of acute intracranial abnormality. Redemonstration of areas of encephalomalacia in the right frontal and temporal lobes. Persistent 0.4 cm ilmd-uz-hdgtc midline shift. The ventricles are unchanged in size. Chest 1view DX EXAM: XR CHEST 1 VIEW 02/27/2019 [facility] DATE: 02/27/2019 13:37 CDT Center INDICATION: [...] DX EXAM: XR CHEST 1 VIEW 02/26/2019 [facility] DATE: 02/26/2019 13:33 CDT Center INDICATION: [...] EXAM: MRI BRAIN WITH AND WITHOUT CONTRAST [facility] MRI DATE: 02/22/2019 1740 hours Cente r [...] enhancement. PICC insert with or PROCEDURES: 02/21/2019 [facility] ical without port VR Foreign [...] used for the remainder of the procedure. Automatic Furnace Operator radiographic imaging d emonstrates a microwire [...] A sterile dressing was applied. Catheter placed: [employer] Catheter size ([place]ican): 5 Catheter intravascular length (cm): 22 Catheter [...] report as written. Foreign body PROCEDURES: 02/21/2019 [facility] Medical retrieval from Foreign body retrieval [...] used for the remainder of the procedure. Automatic Furnace Operator radiographic imaging d emonstrates a microwire [...] was applied. Catheter placed: [employer] Catheter size ([place]): 5 Catheter intravascular length (cm): 22 Catheter [...] SPINE WITHOUT AND WITH CONTRA ST 02/20/2019 [facility] contrast MRI DATE: 02/22/2019 7:25 PM CDT [...] RIGHT FOOT WITH AND WITHOUT CONTRAST 02/20/2019 [facility] MRI DATE: 02/20/2019 20:28 CDT Center INDICATION: [...] SPINE WITHOUT AND WIT H CONTRAST 02/20/2019 [facility] MRI DATE: 02/22/2019 6:43 PM CDT Cent [...] ABDOMEN AND PELVIS WITH CONTRAST 0 02/19/2019 [facility] contrast only CT DATE: 02/19/2019 8:17 CDT [...] EXAM: CT RIGHT FOOT WITH CONTRAST 02/19/2019 [facility] DATE: 02/19/2019 at 0844 hours Ce nter [...] EXAM: CT LUMBAR SPINE WITH CONTRAST 02/17/2019 [facility] contrast CT DATE: 02/17/2019 Center INDICATION: 'h/o [...] CT CERVICAL SPINE WITH CONTRAST 9 [facility] contrast CT DATE: 02/17/2019 Center INDICATION: 74 [...] complex indenting the ventral thecal sac causing djqt-cr-qfgriaqf spinal canal stenosis. Bilateral severe neural foraminal [...] EXAM: MR RIGHT FOOT WITHOUT CONTRAST 2018 [facility] DATE: 02/12/2019 2:09 PM CDT [facility] er INDICATION: - r/o OM COMPARISON: [...] DX EXAM: XR CHEST 1 VIEW 02/09/2019 [facility] DATE: 02/09/2019 7:48 CDT Center INDICATION: Respiratory distress - sepsis COMPARISON: 02/07/2019 TECHNIQUE: AP chest radiograph IMPRESSION: 1. Cardiomediastinal silhou ette is enlarged, unchanged. Aortic atherosclerotic disease. 2. Prominent lung reticulat ions again seen with peribronchial cuffing suggestive of pulmonary edema. Superimposed infection cannot be excluded. 3. Costophrenic sulci are sharp. 4. Osseous structures are stable. 5. Left-sided FELT CARBONIZER shunt is stable compared to pr evious study. Foot wo contrast CT EXAM: CT RIGHT FOOT WITHOUT CONTRAST 019 [facility] DATE: 02/08/2019 7:05 CDT Center INDICATION: - [...] DX EXAM: XR CHEST 1 VIEW 02/07/2019 [facility] DATE: 02/07/2019 7:28 PM CDT Cente r INDICATION: - shortness of breath COMPARISON: 02/06/2019 TECHNIQUE: AP chest. IMPRESSION: Left-sided FELT CARBONIZER shunt in stabl e position. Stable cardiac mediastinal silhouette and atherosclerotic changes in the aorta. Small bilateral pleural effusions. No pneumothorax. Mild bibasilar subsegmental atelectasis. CONCLUSION: 1. Small bilateral pleural effusions. 2. Mild bibasilar subsegmental atelectasis. Upp er lungs are clear. Chest 1view DX EXAM: XR CHEST 1 VIEW 02/06/2019 [facility] DATE: 02/06/2019 15:06 T [place] INDICATION: - infectious workup for AMS COMPARISON: [...] EXAM: XR RIGHT WRIST 3 VIEWS 02/05/2019 [facility] DATE: 02/05/2019 17:36 [facility] INDICATION: - fall, severe pain COMPARISON: None TECHNIQUE: PA, lateral and oblique radiographs of the wrist FINDINGS: No acute fracture or malalignment is identified. No soft tissue abnormality is identified. IMPRESSION: No acute abnormality. Ankle 3 views DX EXAM: XR RIGHT ANKLE 3 VIEWS 02/05/2019 [facility] DATE: 02/05/2019 17:36 T Center INDICATION: - [...] DX EXAM: XR CHEST 2 VIEWS 02/05/2019 [facility] DATE: 02/05/2019 2:09 PM CDT Cente r [...] 4. Osseous structures are stable. 5. Left-sided FELT CARBONIZER shunt is stable compared to pr evious study. Chest 1view DX EXAM: XR CHEST 1 VIEW 12/27/2018 [facility] DATE: 12/27/2018 3:00 T Center INDICATION: [...] DX EXAM: XR CHEST 1 VIEW 12/26/2018 [facility] DATE: 12/26/2018 6:29 CDT Center INDICATION: [...] for EXAM: XR CHEST 1 VIEW 12/25/2018 [facility] Placement DX DATE: 12/25/2018 3:42 T [...] catheter. Liver US EXAM: US LIVER 12/24/2018 [facility] DATE: 12/24/2018 20:47 T Center INDICATION: -Elevated [...] DX EXAM: XR CHEST 1 VIEW 12/24/2018 [facility] DATE: 12/24/2018 20:04 T Center INDICATION: [...] for EXAM: XR ABDOMEN 1 VIEW 12/24/2018 [facility] Placement DX DATE: 12/24/2018 20:04 T Center [...] focal consolidation is identified. There is left-sided FELT CARBONIZER shunt tubing. There are calcified granulomata in the upper lobes. The cardiac silhouette is up per limits of normal in size. Degenerative change involves the thoracic spine and shoulders. An old distal right clavicle fracture is suspected. IMPRESSION: 1. Minimal left lower lobe subsegmental atelecta sis. [id number] Bone Density DXA Dual 10/21/2018 DOMONIQUE Pe [...] is recommended. This exam was interpreted at [id number] for CRISPIN Varela 15. Betzy Caba M.D., ms/ellierad:10/21/2018 12:45:40 Rope Silica Machine Operator(s): Daniel Anthony Esophagus BA swallow EXAM: FLUOROSCOPY MODIFIED BARIUM SWALLOW 0 09/23/2018 [facility] video DX DATE: 09/23/2018 at [...] 1 view DATE: - Codman's view 2018 [facility] INDICATION: Suspected shunt malfunction. Center TECHNIQUE: lateral [...] DX EXAM: XR CHEST 1 VIEW 09/17/2018 [facility] DATE: 09/17/2018 3:00 CDT Center INDICATION: Tube placement/removal/reposition - atlectasis COMPARISON: 09/15/2017 TECHNIQUE: AP chest. FINDINGS: Feeding tube has been remove d. Left upper extremity PICC and FELT CARBONIZER shunt remains in position. Persistent small left [...] EXAM: FLUOROSCOPY MODIFIED BARIUM SWALLOW 0 09/16/2018 [facility] function video DX DATE: 09/16/2018 at 1349 hours Center INDICATION: Dysphagia - Comparison to MBS @ [facility] 09/08/18. COMPARISON: 09/08/2018 modified barium swallow. TECHNIQUE: Oral barium contr ast of differing consistencies was given to the patient to assess swallowing mechanism. The study was performed in conjunction with speech pathology. FLUOROSCOPY TIME: 1 minute 29 seconds SKIN DOSE: 11.51 mGy DISCUSSION: The patient was given barium contrast of differe nt consistencies. Thin barium: Deep, silent penetration.. [place] barium: Normal. Pudding barium: Pooling into the [...] DX EXAM: XR CHEST 1 VIEW 09/15/2018 [facility] DATE: 09/15/2018 3:00 T Center INDICATION: [...] DX EXAM: XR CHEST 1 VIEW 09/14/2018 [facility] DATE: 09/14/2018 3:00 T Center INDICATION: [...] CT ABDOMEN AND PELVIS WITH CONTRAST 09/13/2018 [facility] contrast CT DATE: 09/13/2018 10:29 T Center [...] stric antrum. Right upper quadrant surgical clips. FELT CARBONIZER shunt catheter tip at the lower central [...] CT EXAM: CT CHEST WITH CONTRAST 09/13/2018 [facility] DATE: 09/13/2018 10:28 CDT Center INDICATION: - [...] per Fleischner criteria : The [facility] for nodules measuring up to [...] EXAM: MRI BRAIN WITH AND WITHOUT CONTRAST [facility] MRI DATE: 09/13/2018 at 0221 hours. C [...] for EXAM: XR CHEST 1 VIEW [facility]: 09/13/2018 3:00 T Center INDICATION: Tube placement - ETT placement COMPARISON: 08/31/2018 TECHNIQUE: AP chest IMPRESSION: 1. Interval placement of en dotracheal tube with tip terminates 2 cm above the jennifer. Interval placement of feeding tube with adequate positioning. Again seen is left upper extremity PICC with stable p osition. Left sided FELT CARBONIZER shunt is stable in positi on. 2. Small left pleural effus ion with left basilar atelectatic changes. No new lung lesions identified. 3. Cardiomediastinal silhou ette is enlarged, unchanged. Aortic atherosclerotic disease. 4. Osseous structures are stable. Abdomen AP DX EXAM: XR ABDOMEN 1 VIEW 09/12/2018 [facility] DATE: 09/12/2018 20:16 CDT Center INDICATION: - [...] DX EXAM: XR ABDOMEN 1 VIEW 09/12/2018 [facility] DATE: 09/12/2018 17:42 [facility] INDICATION: - [place] placement COMPARISON: 03/14/2011 TECHNIQUE: Limited AP view of the abdomen for tube placement assessment. Number of images: 1 FINDINGS: Transesophageal feeding tube tip in the proximal stomach and needs to be further advanced. Transesophageal suction tube: None. Other tubes and lines: A FELT CARBONIZER shunt catheter noted . No other changes. IMPRESSION: Tube positions as above. Skull 1 view DX EXAM: XR SKULL 1 VIEW 09/11/2018 [facility] DATE: 09/11/2018 1:02 PM Center INDICATION: FELT CARBONIZER shunt, MRI COMPARISON: Skull x-ray from 08/18/2018 TECHNIQUE: A single oblique radiograph of the sk ull. DISCUSSION: Ventricular cath eter with Hakim Codman valve, setting of 140 mm water, without interval change. IMPRESSION: Stable valve setting 140 mm water. Chest 1 v for EXAM: XR CHEST 1 VIEW 09/10/2018 [facility] Placement DX DATE: 09/10/2018 1:51 CDT Center INDICATION: Line Placement - Chest 1 view for li ne placement COMPARISON: 09/08/2017 TECHNIQUE: AP chest. FINDINGS: Left-sided chest wall FELT CARBONIZER rosa nt is unchanged. Redemonstration of left [...] BARIUM SWALLOW WITH ERICE [facility] PATHOLOGY 09/08/2018 [facility] function video DX DATE: 09/08/2018 12:40 CDT . ORDERING PHYSICIAN: Sadi Cortés MD CLINICAL INDICATION: - Complete with PLEXIGLAS FORMER Vandana gomez; TECHNIQUE: The patient swall owed [...] frequent nasal regurgitation. Thin barium: Symptomatic aspiration [place]: Symptomatic aspiration IMPRESSION: 1. Some traumatic aspiration with thin and nect ar consistencies 2. Pharyngeal stasis with nasal regurgitation 3. Please refer to separate speech pathology report for further detail and recommendations Chest 1 v for Chest 1 v for Placement DX 09/08/2018 9:56 CDT 0 09/08/2018 [facility] Placement DX HISTORY/INDICATIONS:73 years Female [...] Left PICC line terminates in the SVC. [id number] Angiogram cervical PROCEDURE: 08/19/2018 [facility] roger artery bilateral VR 1. 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 HISTORY: 73-year-old female patient with past medical history of meningioma of the planum sphenoidale resected in 2010, status post FELT CARBONIZER shunt placement. Currently complaining of insidious onset [...] single wall micropunctur e technique and a 5-[place]ican sheath was placed. 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 Smooth atheromatous plaques [...] DX EXAM: XR SKULL 1 VIEW 08/18/2018 [facility] DATE: 08/18/2018 17:56 CDT Center INDICATION: [...] MRI EXAM: MRI BRAIN WITHOUT CONTRAST 9 [facility] EXAM: MRI ORBITS WITHOUT CONTRAST. Center DATE: [...] MRI EXAM: MRI BRAIN WITHOUT CONTRAST 9 [facility] EXAM: MRI ORBITS WITHOUT CONTRAST. Center DATE: [...] CT NECK WITH CONTRAST 08/18/2018 [facility] contrast CT DATE: 08/18/2018 7:19 CDT Center [...] EXAM: FLUOROSCOPY MODIFIED BARIUM SWALLOW 0 08/18/2018 [facility] function video DX DATE: 08/18/2018 7:00 [facility]T [facility]: - swallow. ADDITIONAL INFORMATION: None. [...] CT EXAM: CT CHEST WITH CONTRAST 08/17/2018 [facility] DATE: 08/17/2018 17:07 CDT Center INDICATION: eft-sided [...] COMPARISON: [facility] FINDINGS: Lines and Tubes: Left sided, anterior chest wall FELT CARBONIZER shunt is noted. Lower Neck: Please refer [...] the skull for shunt settin g. 08/17/2018 [facility] HISTORY: Evaluate shunt setting. Comparison with radiographs from August 19, 2011. TECHNIQUE: 3 views of the skull were obtained. FINDINGS: A Codman valve is placed, th e shunt valve setting is approximately 150 cc of water. FINDINGS: Radiographs for shunt valve setting. Brain/Neck CTA Exam: CTA HEAD AND NECK 08/16/2018 [facility] DATE: 08/16/2018 7:42 PM CDT Cent er [...] arteries and basilar artery are patent. Both hand twister are patent. Nonflow limiting stenot ic lesions in the left P2 and right P3-P4 segmen t. No AV malformation or aneurysms. IMPRESSION: Atheromatous disease in the carotid bulbs not resulting in significant stenosis by NASCET criteria. Greater than 50% stenosis in the para and supraclinoid right internal carotid artery. No flow-limiting stenotic lesions in both hand twister. Aberrant right subclavian artery Qualitative and quantitative assessments of stenosis in the carotid bulbs is made referencing the distal internal carotid artery Brain wo contrast CT EXAM: CT BRAIN WITHOUT CONTRAST 08/16/2018 [facility] DATE: 08/16/2018 4:26 PM CDT Cent er [...] Date Comments Source Respitory Rate 32 02/27/2020 [facility] Systolic (mm Hg) 106 02/27/2020 [facility] Diastolic (mm Hg) 64 02/27/2020 [facility] Respitory Rate 27 02/27/2020 [facility] Respitory Rate 32 02/27/2020 [facility] Systolic (mm Hg) 125 02/27/2020 [facility] [place] Diastolic (mm Hg) 73 02/27/2020 [facility] Systolic (mm Hg) 106 02/27/2020 [facility] [place] Diastolic (mm Hg) 52 02/27/2020 [facility] Temperature Oral (F) 98.4 F 02/23/2020 [facility] Temperature Oral (F) 98.8 F 02/22/2020 [facility] Temperature Oral (F) 96.8 F 02/22/2020 [facility] Respitory Rate 24 02/20/2020 [facility] Respitory Rate 21 02/20/2020 [facility] Temperature Oral (F) 98 F 02/20/2020 [facility] Respitory Rate 20 02/20/2020 [facility] Systolic (mm Hg) 110 02/20/2020 [facility] Diastolic (mm Hg) 52 02[facility]2020 [facility] [place] Systolic (mm Hg) 105 02/20/2020 [facility] Diastolic (mm Hg) 54 02/20/2020 [facility] Temperature Oral (F) 97.4 F 02/20/2020 [facility] Systolic (mm Hg) 129 02/20/2020 [facility] Diastolic (mm Hg) 60 02/20/2020 [facility] Temperature Oral (F) 98 F 02/16/2020 [facility] Heart Rate 60 02[facility]16/2020 [facility] Heart Rate 73 02[facility]16/2020 [facility] Heart Rate 66 02/16/2020 [facility] Height 149.86 cm 02/15/2020 [facility] Weight 84.545 02/15/2020 [facility] [place] BMI Calculated 37.65 02/15/2020 [facility] Heart Rate 79 12/20/2019 [facility] Respitory Rate 18 12/20/2019 [facility] Systolic (mm Hg) 107 12/20/2019 [facility] Diastolic (mm Hg) 71 12/20/2019 [facility] Heart Rate 81 12/20/2019 [facility] Respitory Rate 15 12/20/2019 [facility] Systolic (mm Hg) 112 12/20/2019 [facility] Diastolic (mm Hg) 77 12/20/2019 [facility] Heart Rate 80 12/20/2019 [facility] Respitory Rate 18 12/20/2019 [facility] Systolic (mm Hg) 119 12/20/2019 [facility] Diastolic (mm Hg) 71 12/20/2019 [facility] [place] Temperature Oral (F) 97.6 F 12/20/2019 [facility] Temperature Oral (F) 97.5 F 12/19/2019 [facility] Temperature Oral (F) 97.5 F 12/19/2019 [facility] Height 149.86 cm 12/06/2019 [facility] Height 149.86 cm 12/06/2019 [facility] Height 149.86 cm 12/06/2019 [facility] Systolic (mm Hg) 127 12/01/2019 [facility] Diastolic (mm Hg) 58 12/01/2019 [facility] Respitory Rate 21 12/01/2019 [facility] Respitory Rate 24 12/01/2019 [facility] Respitory Rate 19 12/01/2019 [facility] Systolic (mm Hg) 149 12/01/2019 [facility] Diastolic (mm Hg) 103 12/01/2019 [facility] Systolic (mm Hg) 146 12/01/2019 [facility] Diastolic (mm Hg) 65 12/01/2019 [facility] Temperature Oral (F) 98.6 F 11/30/2019 [facility] Temperature Oral (F) 98.5 F 11/30/2019 [facility] Temperature Oral (F) 98.0 F 11/30/2019 [facility] Respitory Rate 18 11/28/2019 [facility] Systolic (mm Hg) 149 11/28/2019 [facility] Diastolic (mm Hg) 66 11/28/2019 [facility] Respitory Rate 12 11/28/2019 [facility] Systolic (mm Hg) 133 11/28/2019 [facility] Diastolic (mm Hg) 71 11/28/2019 [facility] Respitory Rate 13 11/28/2019 [facility] Systolic (mm Hg) 167 11/28/2019 [facility] Diastolic (mm Hg) 70 11/28/2019 [facility] Respitory Rate 20 11/28/2019 [facility] Systolic (mm Hg) 171 11/28/2019 [facility] Diastolic (mm Hg) 72 11/28/2019 [facility] Respitory Rate 24 11/28/2019 [facility] Systolic (mm Hg) 162 11/28/2019 [facility] Diastolic (mm Hg) 73 11/28/2019 [facility] Respitory Rate 25 11/28/2019 [facility] Systolic (mm Hg) 153 11/28/2019 [facility] Diastolic (mm Hg) 65 11/28/2019 [facility] Temperature Oral (F) 99.0 F 11/24/2019 [facility] Height 149.86 cm 11/23/2019 [facility] Weight 90 11/23/2019 [facility] BMI Calculated 40.07 11/23/2019 [facility] Temperature Oral (F) 97.4 F 11/22/2019 [facility] Temperature Oral (F) 97.9 F 11/22/2019 [facility] Heart Rate 88 11/22/2019 [facility] Temperature Oral (F) 98.8 F 03/04/2019 [facility] Heart Rate 78 03/04/2019 [facility] [place] Respitory Rate 18 03/04/2019 [facility] Systolic (mm Hg) 126 03/04/2019 [facility] Diastolic (mm Hg) 64 03/04/2019 [facility] Temperature Oral (F) 97.9 F 03/04/2019 [facility] Heart Rate 75 03/04/2019 [facility] Respitory Rate 18 03/04/2019 [facility] Systolic (mm Hg) 135 03/04/2019 [facility] Diastolic (mm Hg) 69 03/04/2019 [facility] [place] Temperature Oral (F) 98.6 F 03/04/2019 [facility] Heart Rate 68 03/04/2019 [facility] Respitory Rate 18 03/04/2019 [facility] Systolic (mm Hg) 147 03/04/2019 [facility] Diastolic (mm Hg) 77 03/04/2019 [facility] Height 149.86 cm 03/01/2019 [facility] Weight 100 03/01/2019 [facility] BMI Calculated 44.53 03/01/2019 [facility] Height 149.86 cm 02/16/2019 [facility] Weight 90.909 02/16/2019 [facility] Height 149.86 cm 02/09/2019 [facility] Weight 90.909 02/09/2019 [facility] BMI Calculated 40.48 02/05/2019 [facility] Temperature Oral (F) 97.6 F 01/10/2019 [facility] Heart Rate 78 01/10/2019 [facility] Respitory Rate 18 01/10/2019 [facility] Systolic (mm Hg) 109 01/10/2019 [facility] Diastolic (mm Hg) 70 01/10/2019 [facility] Temperature Oral (F) 97.6 F 01/10/2019 [facility] Heart Rate 80 01/10/2019 [facility] Respitory Rate 18 01/10/2019 [facility] Systolic (mm Hg) 112 01/10/2019 [facility] Diastolic (mm Hg) 60 01/10/2019 [facility] Temperature Oral (F) 97.9 F 01/10/2019 [facility] Heart Rate 84 01/10/2019 [facility] Respitory Rate 18 01/10/2019 [facility] Systolic (mm Hg) 106 01/10/2019 [facility] Diastolic (mm Hg) 67 01/10/2019 [facility] Height 152.4 cm 12/27/2018 [facility] Height 152.4 cm 12/27/2018 [facility] Height 152.4 cm 12/27/2018 [facility] Weight 92 12/24/2018 [facility] BMI Calculated 39.61 12/24/2018 [facility] Temperature Oral (F) 98.8 F 11/29/2018 [facility] Heart Rate 78 11/29/2018 [facility] Systolic (mm Hg) 174 11/29/2018 [facility] Diastolic (mm Hg) 74 11/29/2018 [facility] Respitory Rate 20 11/29/2018 [facility] Systolic (mm Hg) 190 11/29/2018 [facility] Diastolic (mm Hg) 79 11/29/2018 [facility] Height 149.86 cm 11/29/2018 [facility] BMI Calculated 45.54 11/29/2018 [facility] Weight 102.273 11/29/2018 [facility] Systolic (mm Hg) 163 11/29/2018 [facility] Diastolic (mm Hg) 83 11/29/2018 [facility] Respitory Rate 20 11/29/2018 [facility] Heart Rate 80 11/29/2018 [facility] Temperature Oral (F) 98.7 F 11/29/2018 [facility] Systolic (mm Hg) 139 09/23/2018 [facility] Diastolic (mm Hg) 66 09/23/2018 [facility] Respitory Rate 18 09/23/2018 [facility] Temperature Oral (F) 97.8 F 09/23/2018 [facility] Heart Rate 70 09/23/2018 [facility] Temperature Oral (F) 97.2 F 09/23/2018 [facility] Heart Rate 66 09/23/2018 [facility] Systolic (mm Hg) 147 09/23/2018 [facility] Diastolic (mm Hg) 63 09/23/2018 [facility] Respitory Rate 18 09/23/2018 [facility] Systolic (mm Hg) 147 09/23/2018 [facility] Diastolic (mm Hg) 53 09/23/2018 [facility] Respitory Rate 18 09/23/2018 [facility] Heart Rate 67 09/23/2018 [facility] Temperature Oral (F) 98.3 F 09/23/2018 [facility] BMI Calculated 40.88 09/21/2018 [facility] Weight 91.818 09/21/2018 [facility] Temperature Oral (F) 98.1 F 09/20/2018 [facility] Temperature Oral (F) 97.9 F 09/20/2018 [facility] Respitory Rate 30 09/20/2018 [facility] Systolic (mm Hg) 174 09/20/2018 [facility] Diastolic (mm Hg) 74 09/20/2018 [facility] Respitory Rate 27 09/20/2018 [facility] Systolic (mm Hg) 167 09/20/2018 [facility] Diastolic (mm Hg) 70 09/20/2018 [facility] Temperature Oral (F) 97.5 F 09/20/2018 [facility] Respitory Rate 35 09/20/2018 [facility] Systolic (mm Hg) 175 09/20/2018 [facility] Diastolic (mm Hg) 71 09/20/2018 [facility] Height 149.86 cm 09/15/2018 [facility] Height 149.86 cm 09/15/2018 [facility] Height 149.86 cm 09/15/2018 [facility] Heart Rate 101 09/11/2018 [facility] Heart Rate 98 09/11/2018 [facility] Heart Rate 95 09/11/2018 [facility] Respitory Rate 19 09/10/[address] [facility] Systolic (mm Hg) 161 09/10/2018 [facility] Diastolic (mm Hg) 101 09/10/2018 [facility] Respitory Rate 16 09/10/[address] [facility] Systolic (mm Hg) 148 09/10/2018 [facility] Diastolic (mm Hg) 67 09/10/2018 [facility] [place] Systolic (mm Hg) 121 09/09/2018 [facility] Diastolic (mm Hg) 54 09/09/2018 [facility] Respitory Rate 15 09/09/[address] [facility] BMI Calculated 41.99 09/08/[address] [facility] Height 149.86 cm 09/08/[address] [facility] Weight 94.3 09/08/[address] [facility] Systolic (mm Hg) 110 08/20/2018 [facility] Diastolic (mm Hg) 66 08/20/2018 [facility] Respitory Rate 33 08/20/2018 [facility] Temperature Oral (F) 98.0 F 08/20/2018 [facility] Temperature Oral (F) 97.9 F 08/19/2018 [facility] Respitory Rate 20 08/19/2018 [facility] Temperature Oral (F) 97.8 F 08/19/2018 [facility] Center Systolic (mm Hg) 138 08/19/2018 [facility] Diastolic (mm Hg) 76 08/19/2018 [facility] Respitory Rate 18 08/19/2018 [facility] Systolic (mm Hg) 144 08/19/2018 [facility] Diastolic (mm Hg) 63 08/19/2018 [facility] Heart Rate 92 08/19/2018 [facility] Heart Rate 72 08/18/2018 [facility] Heart Rate 70 08/18/2018 [facility] BMI Calculated 49.69 08/17/2018 [facility] Height 149.86 cm 08/17/2018 [facility] Weight 111.6 08/17/2018 [facility] Weight 113.636 08/16/2018 [facility] Height 152.4 cm 08/16/2018 [facility] BMI Calculated 48.93 08/16/2018 [facility] Diastolic (mm Hg) 60.0 03/25/2011 [facility] Systolic (mm Hg) 151.0 03/25/2011 [facility] Temperature Oral (F) 97.6 F 03/25/2011 [facility] Center Heart Rate 87.0 03/25/2011 [facility] Respitory Rate 20.0 03/25/2011 [facility] Temperature Oral (F) 97.8 F 03/25/2011 [facility] Center Respitory Rate 20.0 03/25/2011 [facility] Heart Rate 98.0 03/25/2011 [facility] Systolic (mm Hg) 163.0 03/25/2011 [facility] Diastolic (mm Hg) 82.0 03/25/2011 [facility] Diastolic (mm Hg) 68.0 03/25/2011 [facility] Systolic (mm Hg) 156.0 03/25/2011 [facility] Temperature Oral (F) 97.7 F 03/25/2011 [facility] Heart Rate 95.0 03/25/2011 [facility] Respitory Rate 20.0 03/25/2011 [facility] Weight 90.909 03/22/2011 [facility] Height 149.86 cm 03/22/2011 [facility] Weight 90.909 03/22/2011 [facility] Height 149.86 cm 03/22/2011 [facility] Diastolic (mm Hg) 56.0 03/15/2011 [facility] Systolic (mm Hg) 128.0 03/15/2011 [facility] Respitory Rate 16.0 03/15/2011 [facility] Heart Rate 85.0 03/15/2011 [facility] Temperature Oral (F) 96.6 F 03/15/2011 [facility] Diastolic (mm Hg) 91.0 03/15/2011 [facility] Systolic (mm Hg) 121.0 03/15/2011 [facility] Respitory Rate 18.0 03/15/2011 [facility] Heart Rate 78.0 03/15/2011 [facility] Temperature Oral (F) 98.2 F 03/15/2011 [facility] Diastolic (mm Hg) 39.0 03/15/2011 [facility] Systolic (mm Hg) 170.0 03/15/2011 [facility] Respitory Rate 18.0 03/15/2011 [facility] Temperature Oral (F) 98.0 F 03/15/2011 [facility] Heart Rate 93.0 03/15/2011 [facility] Weight 83.665 03/14/2011 [facility] Height 149.86 cm 03/14/2011 [facility] Heart Rate 97.0 03/07/2011 [facility] Respitory Rate 20.0 03/07/2011 [facility] Systolic (mm Hg) 140.0 03/07/2011 [facility] Diastolic (mm Hg) 66.0 03/07/2011 [facility] Temperature Oral (F) 98.4 F 03/07/2011 [facility] Diastolic (mm Hg) 69.0 03/07/2011 [facility] Systolic (mm Hg) 140.0 03/07/2011 [facility] Respitory Rate 20.0 03/07/2011 [facility] Temperature Oral (F) 98.6 F 03/07/2011 [facility] Heart Rate 115.0 03/07/2011 [facility] Systolic (mm Hg) 131.0 03/06/2011 [facility] Temperature Oral (F) 97.6 F 03/06/2011 [facility] Center Respitory Rate 18.0 03/06/2011 [facility] Heart Rate 104.0 03/06/2011 [facility] Diastolic (mm Hg) 44.0 03/06/2011 [facility] Height 149.86 cm 02/26/2011 [facility] Weight 90.909 02/26/2011 [facility] Temperature Oral (F) 98.2 F 02/26/2011 [facility] Heart Rate 90.0 02/26/2011 [facility] Respitory Rate 18.0 02/26/2011 [facility] Systolic (mm Hg) 154.0 02/26/2011 [facility] Diastolic (mm Hg) 54.0 02/26/2011 [facility] Temperature Oral (F) 98.9 F 02/26/2011 [facility] Center Heart Rate 93.0 02/26/2011 [facility] Respitory Rate 18.0 02/26/2011 [facility] Systolic (mm Hg) 153.0 02/26/2011 [facility] Diastolic (mm Hg) 60.0 02/26/2011 [facility] Temperature Oral (F) 98.7 F 02/26/2011 [facility] Respitory Rate 20.0 02/26/2011 [facility] Systolic (mm Hg) 149.0 02/26/2011 [facility] Diastolic (mm Hg) 62.0 02/26/2011 [facility] Heart Rate 95.0 02/25/2011 [facility] Weight 100.0 02/20/2011 [facility] Height 149.86 cm 02/19/2011 [facility] Weight 100.0 02/19/2011 [facility] Heart Rate 104.0 02/19/2011 [facility] Temperature Oral (F) 98.6 F 02/19/2011 [facility] Respitory Rate 20.0 02/19/2011 [facility] Systolic (mm Hg) 128.0 02/19/2011 [facility] Diastolic (mm Hg) 63.0 02/19/2011 [facility] Respitory Rate 20.0 02/19/2011 [facility] Systolic (mm Hg) 115.0 02/19/2011 [facility] Diastolic (mm Hg) 58.0 02/19/2011 [facility] Heart Rate 110.0 02/19/2011 [facility] Temperature Oral (F) 97.5 F 02/19/2011 [facility] Diastolic (mm Hg) 64.0 02/18/2011 [facility] Temperature Oral (F) 98.4 F 02/18/2011 [facility] Heart Rate 108.0 02/18/2011 [facility] Respitory Rate 18.0 02/18/2011 [facility] Systolic (mm Hg) 152.0 02/18/2011 [facility] Height 149.86 cm 01/31/2011 [facility] Weight 100.455 01/31/2011 [facility] Systolic (mm Hg) 116.0 01/31/2011 [facility] Diastolic (mm Hg) 55.0 01/31/2011 [facility] Peripheral Pulse Rate 67.0 01/31/2011 [facility] Respitory Rate 20.0 01/31/2011 [facility] Temperature Oral (F) 98.5 F 01/31/2011 [facility] Peripheral Pulse Rate 65.0 01/31/2011 [facility] Systolic (mm Hg) 148.0 01/31/2011 [facility] Diastolic (mm Hg) 58.0 01/31/2011 [facility] Diastolic (mm Hg) 62.0 01/31/2011 [facility] Peripheral Pulse Rate 64.0 01/31/2011 [facility] Systolic (mm Hg) 153.0 01/31/2011 [facility] Respitory Rate 21.0 01/31/2011 [facility] Temperature Oral (F) 97.8 F 01/31/2011 [facility] Respitory Rate 16.0 01/31/2011 [facility] Temperature Oral (F) 98.1 F 01/31/2011 [facility] Height 149.86 cm 01/23/2011 [facility] Weight 89.0 01/23/2011 [facility] Encounters Location Location Encounter Encounter Reason Attending ADM DC Stat us Source Details Type Number For Provider Date Date Visit [facility] AA [id number] LIFE ANKUR CARABALLO 01/23 01/23 Active [facility] 0 FLIGHT [facility] Inpatient [id number] BRAIN KELLEY DAY 01/23 01/31 Act kimberly [facility] 7 MASS/DONNIE [facility] IR [id number] BRAIN MEILANI 01/31 02/19 Active 4 MASS MAP Rehabili tation [facility] Inpatient [id number] HYDROCEP KELLEY DAY 02/19 02/26 A ctive [facility] 0 HALUS [facility] IR [id number] SDH MEILANI 02/26 03/07 Active 9 MAPA Rehabili tation [facility] OU [id number] DEHYDRAT MI 03/14 03/[address] [facility] 1 ION KORIMILLI [facility] Inpatient [id number] DEHYDRAT NOÉ 03/22 03/25 Activ e [facility] 2 ION,PAIN [facility] CONTROL Center MNA Phone [id number] 08/16 08/18 Misch er Neurosurger Message Neur o y [facility] Inpatient [id number] Malia 08/16 08/20 [facility] [place] 5 Dayan [facility] Inpatient [id number] Sadi 09/09 09/10 Jorge Alberto 0 Okpara [facility] Inpatient [id number] Kasi Scottby 09/12 09/20 [facility] [place] [facility] Observation [id number] David 09/21 09/23 [facility] Jorge Alberto 3 Hellen [facility] Outpt Diag [id number] Suur 10/21 10/22 [facility] 3 Bil P [facility] [facility] Out[facility] Diag [id number] Suur 11/18 11/19 [facility] 4 Bil P earland [facility] Emergency [id number] Abel 11/29 11/29 [facility] [place] 6 Stan [facility] Inpatient [id number] Luther 12/24 01/10 [facility] 7 Taj [facility] Inpatient [id number] Jai 02/05 03/04 [facility] Jorge Alberto 0 Hernán [facility] Inpatient [id number] Keagan 11/21 12/19 [facility] 5 Christopher [facility] Outpt Diag [id number] Andre 01/04 01/05 [facility] 5 Fernandez Her restrepo [facility] Inpatient [id number] David 02/14 02/26 [facility] 0 Hellen [facility] Procedures Procedure Code Date Perfomer Comments Source Transcatheter [id number] 02/21/2019 [facility] retrieval, Medical percutaneous, of Center intravascular foreign body (eg, fractured venous or arterial catheter), includes radiological supervision and interpretation, and imaging guidance (ultrasound or fluoroscopy), when performed Selective catheter [id number] 08/19/2018 [facility] as placement, vertebral Medi roger artery, unilateral, Cente r with angiography of the ipsilateral vertebral circulation and all associated radiological supervision and interpretation, includes angiography of the cervicocerebral arch, when performed Insertion or [id number] 01/26/2011 [facility] Replacement of Skull Medi roger Tongs or Halo Center Traction Device Other Excision or [id number] 01/26/2011 [facility] Destruction of Lesion Med ical or Tissue of Brain Center Excision of Lesion or [id number] 01/24/2011 [facility] Tissue of Cerebral Medica l Meninges [place] Intracranial Pressure 01.10 01/24/2011 [facility] Transfusion of Packed [id number] 01/24/2011 [facility] Cervical laminectomy [id number] [facility] her Neuro,[facility], DOMONIQUE Azul, DOMONIQUE Kelly,[facility] section [id number] [facility] Neuro,[facility], DOMONIQUE Azul, DOMONIQUE Kelly,[facility] Resection [id number] [facility] Neuro,[facility], DOMONIQUE Azul, DOMONIQUE Kelly,[facility] Shunt construction [id number] [facility], DOMONIQUE Azul, DOMONIQUE Kelly,[facility] Tonsillectomy [id number] [facility] Neuro,[facility] Azul, DOMONIQUE Kelly,[facility] Assessment and Plan Assessment and Plan Date Source Extracted from:Title: Neurology Progress Note 02/27/2020 [facility] Author: Marlen Parra MD Date: 02/25/20 Neurology [...] who presented as a direct transfer from [facility] due to concerns of MG exacerbation. She initially pres ented one week ago to [facility] [...] problems. She was broug ht back to [facility] where she was eval uated by Neurology and didn't think that it was a MG exacerbation so patient's family requested transfer to [facility]. At [facility] patient had MBS T which [...] 160 mg oral tablet) 1 tab PO [id number] 02/17/20 thiamine 200 mg PO Daily Unscheduled [...] 5/5 strength in bilateral biceps/ triceps/deltoid, hand customer supply coordinator 5/5, AG in b/l lower extremities no [...] in respiratory function as well as hypophonia. DRAWER LINER MG Exacerbation - Weakness likely multifactorial 2/t [...] Code Dispo: SNF vs back to personal detention /assisted living with home health PT/OT/PLEXIGLAS FORMER Marlen Parra MD PGY-2 | Neurology [facility] CPT: 85925 DX: G70.01 I have examined this patient with the re sident, Dr. Parra, and agree with the documentation and findings as recorded. I concur with the plan as outlined. Clovis Miguel MD Professor of Neurology Extracted from:Title: Consult Note Author: Akash Skaggs MD Date: 02/25/20 75-year-old female with a past medical h istory of dementia,and angioma status post resectionwith FELT CARBONIZER shunt, type 2 diabetes, hypertension, hyperlipidemia, CAD,chronic [...] who presented as a direct transfer from [facility] due to concerns of MG exacerbation. She initially prese nted one week ago to [facility] with hypoglicemia and was found to have PNA. She completed antibiotics (Cefuroxime and Clynda per external Rx) and was discharged 5 days ago with PT. Per penny fitzgerald, the next day of her discharged s he suddenly developed trouble standing due to lower extremity weakness, hypophonia and dysarthria. She didn't have any respiratory problems. She was tiffanie t back to [facility] where she was evalu ated by Neurology and didn't think that it was a MG exacerbation so patient's family requested transfer to [facility]. At [facility] patient had MBST [...] 4/5 Tricep 4+/5 4+/5 Bicep 5/5 5/5 Wheel Cutter 5/5 5/5 Iliopsoas 4/5 4/5 Quadricep 4/5 [...] so family would like to avoid IVIG. DRAWER LINER Possible MG Exacerbation - Admit to 5J - posteriorly transferred to [facility] for observat ion - NIF, [...] Pending THE FOLLOWING WERE PRESENT ON ADMISSION: DRAWER LINER- Dementia Cardiovascular- HTN, HFrEF 50% Infectious- Leukocytosis [...] was updated about plan in the evening. DRAWER LINER MG Exacerbation - Monitor closely - NIF, FVC q3-6 hours - Continue home pyridostigmine 60mg q8H - Resume home prednisone 20mg daily - Incentive spirometery - Continue home CPAP at night Dysphagia - NPO per speech therapy - Pending MBS - Can give meds in puree/pudding per PLEXIGLAS FORMER PSYCH Depression Anxiety - Continue home sertraline [...] consult Marlen Parra MD PGY-2 | Neurology [facility] Neurology staff Teaching physician statement I reviewed the residents note, personall y reviewed all the patients labs and imaging studies and personally performed a complete neurological exam. I discussed the assessment and plan of care and agree with the plan as outlined in the resident's note. David Macedo, DO [facility], Neurohospitalist Oil Inspector of Neurology Extracted from:Title: General Neurology Progress Note 2019 [facility] Author: Marlen Parra MD Date: 02/19/20 Neurology [...] who presented as a direct transfer from [facility] due to concerns of MG exacerbation. She [facility] to [facility] [...] problems. She was broug ht back to [facility] where she was eval uated by Neurology and didn't think that it was a MG exacerbation so patient's family requested transfer to [facility]. At [facility] patient had MBS T which [...] at bedside and answered all his questions. DRAWER LINER MG Exacerbation - Weakness likely multifactorial 2/t [...] IPR Marlen Parra MD PGY-2 | Neurology [facility] Neurology staff Teaching physician statement I reviewed [...] pain, will change dressing. David Macedo DO [facility], Neurohospitalist Oil Inspector of Neurology Extracted from:Title: Transfusion Medicine/Apheresis Consult [...] who presented as a direct transfer from [facility] due to concerns of MG exacerbation. She initially pres ented one week ago to [facility] with hypoglycemia and was found to have PNA. She completed antibiotics (Cefuroxime and Clynda per external Rx) and was discharged 5 days ago with PT. Per , the next day of her discharged she suddenly developed trouble standing due to lower extremity weakness, hypophonia and dysarthria. She didn't have any respiratory problems. She was broug ht back to [facility] where she was eval uated by Neurology and didn't think that it was a MG exacerbation so patient's family requested transfer to [facility]. At [facility] patient had MBS T which [...] Thanks for consultation. Mariajose Garsia MD ID# [id number] Extracted from:Title: General Neurology HPI Author: Natalie [...] who presented as a direct transfer from [facility] due to concerns of MG exacerbation. She initially prese nted one week ago to [facility] with hypoglicemia and was found to have PNA. She completed antibiotics (Cefuroxime and Clynda per external Rx) and was discharged 5 days ago with PT. Per h band, the next day of her discharged s he suddenly developed trouble standing due to lower extremity weakness, hypophonia and dysarthria. She didn't have any respiratory problems. She was tiffanie t back to [facility] where she was evalu ated by Neurology and didn't think that it was a MG exacerbation so patient's family requested transfer to [facility]. At [facility] patient had MBST [...] 4/5 Tricep 4+/5 4+/5 Bicep 5/5 5/5 Wheel Cutter 5/5 5/5 Iliopsoas 4/5 4/5 Quadricep 4/5 [...] so family would like to avoid IVIG. DRAWER LINER Possible MG Exacerbation - Admit to - posteriorly transferred to [facility] for observat ion - NIF, [...] Pending THE FOLLOWING WERE PRESENT ON ADMISSION: DRAWER LINER- Dementia Cardiovascular- HTN, HFrEF 50% Infectious- Leukocytosis [...] was updated about plan in the evening. DRAWER LINER MG Exacerbation - Monitor closely - NIF, FVC q3-6 hours - Continue home pyridostigmine 60mg q8H - Resume home prednisone 20mg daily - Incentive spirometery - Continue home CPAP at night Dysphagia - NPO per speech therapy - Pending MBS - Can give meds in puree/pudding per PLEXIGLAS FORMER PSYCH Depression Anxiety - Continue home sertraline [...] consult Marlen Parra MD PGY-2 | Neurology [facility] Neurology staff Teaching physician statement I reviewed the residents note, personall y reviewed all the patients labs and imaging studies and personally performed a complete neurological exam. I discussed the assessment and plan of care and agree with the plan as outlined in the resident's note. David Macedo DO [facility], Neurohospitalist Oil Inspector of Neurology Extracted from:Title: Progress Note 12/20/2019 [facility] Author: Madhavi Calvin MD Date: 12/19/19 Ms. Floyd is a 74 y/o F with PMH dementia, HTN, obesity, T2DM, CT with prior cardiac arrest 35 years ago, [...] C5-6 ACDF, posterior spinal fusion with open tuiivpyxwqlG1-F2ovoD0-6 laminectomy. The patient was intubated and prone [...] as other placementversusPEG tube. 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 Past Surgical History: FELT CARBONIZER shunt placement Tonsillectomy Cervical laminectomy Recent C5-6 [...] NAD HEENT: Bruising on face and neck/shoulders. Pecos J collar i n place. LUNGS: Clear [...] Neck flexion/extension was not testable because of Pecos J collar. 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 Emmanuel Thayer MD PGY-3, Neurology MSO# [id number] [employer] [place] [employer] [employer] THE FOLLOWING WERE PRESENT ON INITIAL ASSESSMENT: DRAWER LINER -Myasthenia gravis, C7 cervical fracture from trauma [...] decreases to any degree please reconsult neurology ([phone]) to discuss cristian sma exchange. Patient's called [facility] on 12/06/2019 to advise that she [...] Extracted from:Title: Progress Note 11/28/2019 [facility] Author: Dell Carrasco MD Date: 11/28/19 1.C7 cervical fracture(S12.600A) 2.Hyperextension injury of cervical spine(S19.80XA) Cleared by cardiology now to have spine surgery. To OR tomorrow withneurosurgery-spine. Pecos-J at all times. 3.Lumbar compression fracture(S32.000A) Old per Neurosurgery. 4.Traumatic mediastinal hematoma(S27.899A) Had negative esophagogram. Vascular injury ruled out per imaging. Per Trauma, likely secondary to C7 fracture. 5.HTN - Hypertension(I10) Controlled on norvasc. 6.Diabetes type 2, uncontrolled(E11.65) Continue fgehzx47 BID and continue lispro regular insulin S [...] obesity, diabetes mellitus, questionable history of prior CT/cardiac arrest ~35 y ears ago "during an [...] Ms. Parikh has been seen by a airborne operations superintendent in the past, Dr. Sanchez Demarco at [...] of above. Ms. Parikh is admitted to [facility] after a tri p and [...] FAMILY HISTORY: Father - in his 70s "CT" SOCIAL HISTORY: Patient is , she lives in an assisted living center. 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 Denies history of smoking, alcohol or illicit [...] 20mg PO QD Sertraline 25mg PO QD Oanzedirjzwizw74xs PO TID Labs: 11/21 0735 Lactic Acid [...] diabetes mellitus, morbid obesity, questionable hx of CT ~35 years ago during arteriogram, and hx of falls is admitted to [facility] s/p fall on 11/21/19 with hype rextension of C7. Cardiology consulted for preoperative risk stratification. 1. Preoperative risk stratification in p atient with multiple co-morbidities and risk factors for coronary artery disease - Pt has been followed by a airborne operations superintendent in [place], Dr. Sanchez Demarco, though she has not seen Dr. Demarco in ~8 months and he has since retired from practice. No r ecent stress test or heart catheterization - No recent hx of chest pain/pressure/sh ortness of breath/syncope/near syncope. Falls are all reported to be mechanical in a patient with known Myasthenia gravis - Pt with questionable hx of cardiac arr est vs CT ~35 years ago during an arteriogram - [...] APRN, MSN, ACNP- Department of Cardiology Pager# [phone] MSO# [id number] Addendum by Sanya Gatica MD on 11/22/2019 22:35 Discussed with the cardiology MEDICARE NURSE's team, Melina alexis. Patient was getting MRI, [...] Extracted from:Title: Cardiology Progress Note * 11/28/2019 [facility] Author: Sanya Gatica MD Date: 11/27/19 Impression and Plan Discussed with the cardiology MEDICARE NURSE's team, Ms. Arlette Gifford. 74 year-old woman with PMHX significant for dementia, hyperlipidemia, hypertension, diabetes mellitus, morbid obesity, questionable hx of CT ~35 years ago during arteriogram, and hx of falls is admitted to [facility] s/p fall on 11/21/19 with hype rextension of C7. Cardiology consulted for preoperative risk stratification. Clinically unchanged. 1. Preoperative cardiac evaluation and risk stratification - Patient has multiple co-morbidities an d risk factors for CAD including diabetes mellitus, morbid obesity, hyperlipidemia, hypertension - Patient follows up with airborne operations superintendent gucci Gioradno, Dr. Sanchez Demarco, though she has not [...] - Patient with h/o cardiac arrest vs CT ~35 years ago during an arteriogram, spouse [...] a new COVID test today. The cardiology MEDICARE NURSE, Ms. Gifford has discus sed the plan of care with bedside RN and with Dr. Perry via perfect serve. Extracted from:Title: Cardiology Consult Note Author: Melina Gomez MEDICARE NURSE Date: 11/22/19 CONSULTATION PATIENT NAME: Langoff. Franci Barrera ADMISSION DATE: 11/22/2019 CONTSULTED PHYSICIAN: Dr. Sanya Gatica SERVICE: Cardiology CHIEF COMPLAINT: s/p trip and fall on ma tt at her assisted living facility on 11/21/19 HISTORY OF PRESENT ILLNESS: 74 year-old woman with a PMHX significant for dementia, hyperlipidemia, hypertension, morbid obesity, diabetes mellitus, questionable history of prior CT/cardiac arrest ~35 y ears ago "during an [...] Ms. Parikh has been seen by a airborne operations superintendent in the past, Dr. Sanchez Demarco at [...] of above. Ms. Parikh is admitted to [facility] after a tri p and [...] FAMILY HISTORY: Father - in his 70s "CT" SOCIAL HISTORY: Patient is , she lives in an assisted living center. 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 Denies history of smoking, alcohol or illicit [...] 20mg PO QD Sertraline 25mg PO QD Szmvpgsqygtlak92nl PO TID Labs: 11/21 0735 Lactic Acid [...] diabetes mellitus, morbid obesity, questionable hx of CT ~35 years ago during arteriogram, and hx of falls is admitted to [facility] s/p fall on 11/21/19 with hype rextension of C7. Cardiology consulted for preoperative risk stratification. 1. Preoperative risk stratification in p atient with multiple co-morbidities and risk factors for coronary artery disease - Pt has been followed by a airborne operations superintendent in [place], Dr. Sanchez Demarco, though she has not seen Dr. Demarco in ~8 months and he has since retired from practice. No r ecent stress test or heart catheterization - No recent hx of chest pain/pressure/sh ortness of breath/syncope/near syncope. Falls are all reported to be mechanical in a patient with known Myasthenia gravis - Pt with questionable hx of cardiac arr est vs CT ~35 years ago during an arteriogram - [...] APRN, MSN, ACNP- Department of Cardiology Pager# [phone] MSO# [id number] Addendum by Sanya Gatica MD on 11/22/2019 22:35 Discussed with the cardiology MEDICARE NURSE's team, Ms. Melina alexis. Patient was getting [...] Cardiology Extracted from:Title: Neurology Discharge Summary 09/20/2018 [facility] Author: Sean Coy MD Date: 09/19/18 INPATIENT NEUROLOGY DISCHARGE SUMMARY Patient Name: Franci Floyd Date of Admission: 09/12/18 Date of Discharge: 09/19/18 Admission Diagnosis: Weakness, Dysphagia Discharge Diagnoses: Bulbar Myasthenia Gravis Consults Obtained: Opthalmology, ENT Brief HPI: Mrs. Floyd is a 73 y.o. 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 Please call . Clinic located at [address], [address] [place], [place] [address]. PCP follow-up within 2 weeks Discharge Instructions: Please continue to take all medications as prescribed and follow up as intstructed. 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 Discharge To Location: Home Please call our nurse coordinator at [phone] if you have any questions/concerns. 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 Has indicated that she wants her to be her medical power of insurance defense attorney permanently. He agrees with full code. 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 Supportive medicine was consulted for goals of care discussion. #Goals of care/palliative -The patient does not have an advanced directive. -CODE STATUS is currently full code. -The next of kin is the patient's [phone]. -Unable to discussgoals of care today si [...] admission. Please start the patient onsenna2 tabletstwice daily,CzdiSTE63tlcpz twice dailyandbisacodyl suppository as neededfor constipation. -Pain: [...] page us via the Memor jumana Azul [facility] page mimeograph operator or via the following pager: [phone], [phone]. Nely Britt MD PGY2 [facility] Internal Medicine ATTENDING ATTESTATION I [...] 3 days or more, recommend bisacodyl supp HI BID PRN cons tipation. If no BM 5 days or more sugges t milk and molasses enema up to every 8 hours until BM. We have discussed the patient with primary team physician. Thank you for the opportunity to partici mckeon in this patient's care. We will follow along with you. [place] [facility] Pager:#[phone](24 hours / 7 days) Extracted from:Title: Discharge Summary 09/10/2018 [facility] Author: Sadi Cortés MD Date: 09/09/18 Discharge Information Discharge Summary Information: Discharg e diagnosis, Discharge medications (See Discharge Medications). Fluctuating left eye vision loss Dysphagia Essential hypertension Hyperlipidemia History of FELT CARBONIZER shunt History of craniotomy status post meningioma resection Discharge Plan Discharge Summary Plan Discharge Status: stable. Discharge instructions given. Discharge disposition: Higher level of care. Discharge planning greater than 30 minutes Extracted from:Title: Clinical Document Author: Kasi Amato MD Date: 09/09/18 NEUROLOGY and CRITICAL CARE MEDICINE [facility] Consultation / Progress Note Assessment [...] seeking to go to the Medical Center ([facility]) They wish to continue to seek medical care here at [facility]. History of Present Illness 73F Presents (09/07/18) [...] GI No nausea, vomiting, diahhrea, melena, blood HI. No new urgency, frequency, pain, or urine [...] was articulate. Fluent, if slow. Comprehension intact. Cementer Hand were surprisingly strong bilaterally. The patient was [...] artery. No flow-limiting stenotic lesions in both hand twister. Aberrant right subclavian artery CT Chest (08/18/18) [...] - - - - - EKG (09/07/18) [facility] Sinus rhythm Inferior infarction Anterior infarction T wave abnormality, consider lateral ischemia CT Head (09/07/18) [facility] (Report) Right frontal craniotomy. Orbits and [...] (SEP 08) PTT 32.0 (SEP 08) [facility] (09/07/18) WBC 7.4, normal differential. Hgb [...] loss Dysphagia Essential hypertension Hyperlipidemia History of FELT CARBONIZER shunt History of craniotomy status post meningioma resection Pending neurology evaluation Failed bedside swallow eval. Speech therapy to evaluate the patient PT/OT eval and treat Will reconsult meds once achieved by [facility] per protocol Supportive care management Extracted from:Title: Ophthalmology Consult Note 08/20/2018 [facility] Author: Sivan Thomas MD Date: 08/17/18 CONSULTATION OPHTHALMOLOGY PATIENT NAME: FRANCI FLOYD MR #: [id number] ROOM: [place] [address] REQUESTING TEAM/ATTENDING: ED DATE OF CONSULT: 08/17/2018 CONSULTING ATTENDING: Kalani Jacobo MD CONSULTING RESIDENT: Sivan Laws MD REASON FOR CONSULT: left ptosis CHART REVIEWED: YES HISTORY OF PRESENT ILLNESS: 73 year old female with HTN, HLD, planum sphenoidal meningioma, right frontal craniotomy for meningioma s/p resection in 2010, hydrocephalus s/p craniectomy and FELT CARBONIZER shunt, cr anioplasty in 2011 and POH [...] tment to follow up with her primary wool washing machine operator or Dr. Kalani Jacobo at the [facility] upon discharge (Located: [address] [place] [address], [address]th floor, ) or i f patient has a ivi[employer]ru Card/ has pending application they can follow up at [facility] ([address] [address] ) Sivan Laws MD Ophthalmology PGY2 [facility] Plan of Care No Data Provided for This Section Social History Social History Date Source Social History TypeResponse 09/08/2018 [facility] Substance Abuse Use: None. Alcohol [...] History TypeResponse 09/08/2018 [facility] Alcohol Current, Frequency: 1-2 times per year. [...]
--- NOTE | 2020-05-23 08:34 | RAD REPORT ---
EXAM DESCRIPTION: CT - [id number] - 05/23/2020 8:20 am CLINICAL HISTORY: FALL COMPARISON: Head C Spine Mpr Wo Con dated 04/02/2020 TECHNIQUE: Axial 5 mm thick images of the head were obtained. Axial 2 mm thick images of the cervic al spine were obtained with sagittal and coronal reconstruction images generated and reviewed. All CT scans are performed using dose optimization technique as appropriate and may include automated exposure control or mA/KV adjustment according to patient size. FINDINGS: No intracranial hemorrhage is present. Right frontal encephalomalacia is present with over lying craniotomy defect. Ventriculostomy tube is in place from a left frontal approach. Tip is in the frontal horn right lateral ventricle. No ventricular dilatation. Approximately 3 centimeter mass is present at the posterior most aspect of the cribriform plate abutting the sella turcica. This is a we ll known, stable mass. No midline shift. No acute cortical based infarction identifiable. Tightness o f the sulci matches prior imaging. Mastoid air cells are clear. Facial bones, orbits and sinuses are separately detailed. Left lateral tilt and slight left convex curvature of the cervical spine again noted. Cervical verteb ral bodies are in normal height similar to the April comparison. No acute fracture changes identif iable. Patient has extensive postsurgical change to the cervical spine. Posterior decompression of C2 and C3 noted. There is surgical hardware fixation of C5-T1. No hardware fracture. Bridging ossificat ion spans C4-T1 with large anterior spurs without bony union at C3-4. No clear change in alignment or position of the bony structures of the cervical spine. No new disc space narrowing. No fracture or a cute bony abnormality. Central canal detail is inherently limited. No paraspinal mass or hematoma. IMPRESSION: No hemorrhage, edema or acute intracranial finding. The known mass, shunt tube, right fr ontal encephalomalacia and right frontal craniotomy changes are stable. Extensive degenerative and postsurgical changes in the cervical spine not clearly different from Nove mber imaging. Negative CT cervical spine examination for acute or significant finding.
--- NOTE | 2020-05-23 08:38 | RAD REPORT ---
EXAM DESCRIPTION: CT - Facial Bones W/ Mpr - 05/23/2020 8:20 am CLINICAL HISTORY: Trauma, fall from wheelchair, right-sided facial trauma COMPARISON: Facial bone study April 02, 2020 TECHNIQUE: Axial 2 millimeter thick images of the facial bones were obtained with sagittal and coron al reconstruction imaging. All CT scans are performed using dose optimization technique as appropriate and may include automated exposure control or mA/KV adjustment according to patient size. FINDINGS: Mild periorbital right-side hematoma changes are present. No foreign body in the soft tiss ues. The globe and orbital contents show no suspicious finding. Right lens is increased in density re lative to the left. This likely reflects prior lens replacement surgical procedure. No nasal bone fra cture confirmed. Configuration of the nasal bones matches the April study. Overall no facial bone fractures seen. Mild left deviation of the nasal septum noted. Patient has right frontal bone postsur gical change in very extensive hyperostosis frontalis interna. No air-fluid level in the paranasal sinuses. Minimal mucosal thickening in the anterior ethmoid air c ells. IMPRESSION: Mild right periorbital hematoma changes with no globe or orbital content injury. No facial bone fractures seen.
--- OUTSIDE RECORDS SUMMARY | 2020-05-23 08:58 | XMS REPORT | Summary of Care ---
:1945 Author Name Alma Rosa Address Unavailable Unavailable , Care Team Providers Name Role Phone NOELLE Still Unavailable Unavailable BRAD Still Unavailable Unavailable Alma Rosa Unavailable Unavailable SARA DANG Unavailable Unavailable NOELLE [...] Still, SHEKHAR Start : 12-Nov-2018 Active Pyridostigmine Anderson 60 MG Oral Tablet TAKE 1 TABLET [...] SHEKHAR DRAKE M.D. On: 26-Jun-2020 11: 00 Instructions Name Dates Details Instructions not documented [...]
--- OUTSIDE RECORDS SUMMARY | 2020-05-23 08:58 | XMS REPORT | Continuity of Care Document ---
:1945 Author Organization [facility] t Address [address] [place]. [address] [place] [id number] Care Team Providers Name Role Phone Ayush Scott Primary Care Physician NOELLE Attending Clinician Unavailable Giovani Miguel Attending Clinician Socorro Schafer MD Attending Clinician Stacia Reece MD Attending Clinician Bill Paez MD Attending Clinician Harley DANG Attending Clinician Donnell Macedo Attending Clinician SOCORRO SCHAFER Attending Clinician Unavailable Natasha Fernandez Attending Clinician Estella Calvin Attending Clinician Bobby Carrasoc Attending Clinician Chris Jim Attending Clinician Lyric [...] Expiration Date S starr AETNA - MEDICARE [id number] [address] [facility] MGD CAREAETNA 00:00:00 - Medical MEDICARE O POS Center [id number] [id number] MECHELLE QUINONES [id number] Problems Condition Condition Condition Status Onset Resolution Last Treating Co mments Source Name Details Category Date Date Treatment Clinician Date MYASTHENIA Diagnosis Active 2020-03-01 Memoria GRAVIS 02-14 21:46:00 l WITH ACUTE 00:00: Berto gomez EXACERBATI MYASTHENIA 00 O GRAVIS WITH ACUTE EXACERBATI O Active 02/15/2020 [facility] Myasthenia Myasthenia Disease Active [facility] - with acute with acute 00:00: Me dical exacerbati exacerbati 00 Ce nter on on C-7,T-4 Diagnosis Active 2019-12-14 Ca moria FX,ESOPHAG 11-20 09:22:00 l EAL TEAR C-7,T-4 03:51: Gerda nn FX,ESOPHAG 00 EAL TEAR Active 11/21/2019 [facility] MYASTHENIA Diagnosis Active 2019-03-10 Memoria GRAVIS 02-05 22:12:00 l WEAKNESS 00:00: Jorge Alberto MYASTHENIA 00 GRAVIS WEAKNESS Active 02/05/2019 [facility] MYASTHENIA Diagnosis Active 2019-01-04 Memoria GRAVIS 12-24 08:31:00 l 00:00: Novice MYASTHENIA 00 GRAVIS Active 12/24/2018 [facility] DIABETIC Diagnosis Active 2018-12-08 M emoria 11-29 05:43:00 l DIABETIC 00:00: Berto n 00 Active 11/29/2018 [facility] DYSPHAGIA Diagnosis Active 2018-09-30 Memoria 4-11 08:27:00 l 00:00: Novice DYSPHAGIA 00 Active 09/09/2018 [facility] RESOLVED Diagnosis Active 2018-09-22 M emoria VISION 4-10 15:15:00 l LOSS IN RESOLVED 00:00: Gerda nn LEFT EYE VISION 00 LOSS IN LEFT EYE Active 09/08/2018 [facility] SLURRED Diagnosis Active 2018-08-26 Me moria SPEECH 3-18 22:20:00 l SLURRED 00:00: Jorge Alberto SPEECH 00 Active 08/16/2018 [facility] STROKE Diagnosis Active 2018-08-16 Mem oria SYMPTOMS 3-18 20:18:00 l STROKE 00:00: Jorge Alberto SYMPTOMS 00 Active 08/16/2018 [facility] Trigger Trigger Disease Active [facility] finger finger 9-15 [facility] - [facility]: Medical 00 [place] Benign Problem Active 2018-12-01 Memor ia neoplasm 1-14 21:28:18 l of Benign 00:00: Jorge Alberto cerebral neoplasm 00 meninges of (disorder) cerebral meninges (disorder) Active 06/14/2012 Problem 12/01/2018 Data migrated from [facility] on 01/23/15. Julia Neuro,[facility], Natasha Acosta [facility] BAD Diagnosis Active 2010-062011-03-22 Mem oria REACTION 0-22 06:07:00 l TO BAD 00:00: Novice MEDICATION REACTION 00 TO MEDICATION Active 03/22/2011 [facility] DEHYDRATIO Diagnosis Active 2010-062011-03-27 Memoria N,PAIN 0- 13:56:00 l CONTROL 00:00: Jorge Alberto DEHYDRATIO 00 N,PAIN CONTROL Active 03/22/2011 [facility] LEG CRAMPS Diagnosis Active 2010-062011-03-14 Memoria 0- 04:56:00 l LEG 00:00: Novice CRAMPS 00 Active 03/13/2011 [facility] DEHYDRATIO Diagnosis Active 2010-062011-03-17 Memoria N 0-13 12:08:00 l 00:00: Novice DEHYDRATIO 00 N Active 03/13/2011 [facility] SDH Diagnosis Active 2011-03-20 Mem oria 9- 21:57:00 l SDH 06:00: Jorge Alberto 00 Active 02/24/2011 Rehabilita tion DM - Problem Active 2011-03-27 Memor ia Diabetes 02-18 08:54:23 l mellitus DM - 00:00: Jorge Alberto Diabetes 00 mellitus Active 02/18/2011 Problem 03/27/2011 [facility] HYDROCEPHA Diagnosis Active 2011-03-05 Memoria TANJA 01-31 21:52:00 l 00:00: Jorge Alberto HYDROCEPHA 00 TANJA Active 01/31/2011 [facility] BRAIN MASS Diagnosis Active 2011-02-20 Memoria 01-30 14:11:00 l BRAIN 06:00: Jorge Alberto MASS 00 Active 01/30/2011 Rehabilita tion BRAIN Diagnosis Active 2011-02-04 Mem oria MASS/AWAKE 01-23 11:31:00 l BRAIN 00:00: Novice MASS/AWAKE 00 Active 01/23/2011 [facility] LIFE Diagnosis Active 2011-02-20 Mem oria FLIGHT 01-23 14:11:00 l LIFE 00:00: Novice FLIGHT 00 Active 01/23/2011 [facility] Increased Increased Problem Active Uni vers Pressure [...] d Illness, Berto n unspecifie d 09/11/2018 [facility] Myasthenia Problem 2019-12-26 M emoria gravis 07:49:25 l without Jorge Alberto (acute) Myasthenia exacerbati gravis on without (acute) exacerbati on 12/26/2019 [facility] 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:49:25 l syndrome Central Gerda nn at C7 cord level of syndrome cervical at C7 spinal level of cord, cervical initial spinal encounter cord, initial encounter 12/26/2019 [facility] Unspecifie Problem 2019-12-26 M emoria d fracture 07:49:25 l of fourth Novice thoracic Unspecifie vertebra, d fracture initial of fourth encounter thoracic for closed vertebra, fracture initial encounter for closed fracture 12/26/2019 [facility] Contusion Problem 2019-12-26 Me moria of other 07:49:25 l specified Novice intrathora Contusion cic of other organs, specified initial intrathora encounter cic organs, initial encounter 12/26/2019 [facility] Unspecifie Problem 2019-12-26 M emoria d fracture 07:49:25 l of second Jorge Alberto lumbar Unspecifie vertebra, d fracture initial of second encounter lumbar for closed vertebra, fracture initial encounter for closed fracture 12/26/2019 [facility] Chronic Problem 2019-12-26 Kalia aida systolic 07:49:25 l (congestiv Chronic Her restrepo e) heart systolic failure (congestiv e) heart failure 12/26/2019 [facility] Delirium Problem 2019-12-26 Mem oria due to 07:49:25 l known Delirium Berto n physiologi due to roger known condition physiologi roger condition 12/26/2019 [facility] Acute Problem 2019-12-26 Memor ia posthemorr 07:49:25 l hagic Acute Novice anemia posthemorr hagic anemia 12/26/2019 [facility] Hydrocepha Problem 2019-12-26 M emoria tanja, 07:49:25 l unspecifie Berto n d Hydrocepha tanja, unspecifie d 12/26/2019 [facility] Unspecifie Problem 2019-12-26 M emoria d 07:49:25 l protein-ca Berto n bry Unspecifie malnutriti d on protein-ca bry malnutriti on 12/26/2019 [facility] Body mass Problem 2019-12-26 Me moria index 07:49:25 l (BMI) Body Novice 40.0-44.9, mass index adult (BMI) 40.0-44.9, adult 12/26/2019 [facility] Ventricula Problem 2019-12-26 emoria r 07:49:25 l tachycardi Berto n a Ventricula r tachycardi a 12/26/2019 [facility] Alkalosis Problem 2019-12-26 Ca moria 07:49:25 l Novice Alkalosis 12/26/2019 [facility] Encephalop Problem 2019-12-26 M emoria athy, 07:49:25 l unspecifie Berto n d Encephalop athy, unspecifie d 12/26/2019 [facility] Gastrointe Problem 2019-12-26 emoria stinal 07:49:25 l hemorrhage Berto n , Gastrointe unspecifie stinal d hemorrhage , unspecifie d 12/26/2019 [facility] Unspecifie Problem 2019-12-26 emoria d 07:49:25 l displaced Jorge Alberto fracture Unspecifie of sixth d cervical displaced vertebra, fracture initial of sixth encounter cervical for closed vertebra, fracture initial encounter for closed fracture 12/26/2019 [facility] Unspecifie Problem 2019-12-26 emoria d 07:49:25 l displaced Novice fracture Unspecifie of seventh d cervical displaced vertebra, fracture initial of seventh encounter cervical for closed vertebra, fracture initial encounter for closed fracture 12/26/2019 [facility] Unspecifie Problem 2019-12-26 M emoria d 07:49:25 l displaced Jorge Alberto fracture Unspecifie of fourth d cervical displaced vertebra, fracture initial of fourth encounter cervical for closed vertebra, fracture initial encounter for closed fracture 12/26/2019 [facility] Hypothyroi Problem 2019-12-26 M emoria dism, 07:49:25 l unspecifie Berto n d Hypothyroi dism, unspecifie d 12/26/2019 [facility] Old Problem 2019-12-26 Memor ia myocardial 07:49:25 l infarction Old Berto n myocardial infarction 12/26/2019 [facility] Age-relate Problem 2019-12-26 M emoria d 07:49:25 l osteoporos Berto n is without Age-relate current d pathologic osteoporos al is without fracture current pathologic al fracture 12/26/2019 [facility] Hypertensi Problem 2019-12-26 M emoria ve heart 07:49:25 l disease Novice with heart Hypertensi failure ve heart disease with heart failure 12/26/2019 [facility] Dysphagia, Problem 2019-12-26 M emoria unspecifie 07:49:25 l d Jorge Alberto Dysphagia, unspecifie d 12/26/2019 [facility] Atheroscle Problem 2019-12-26 M emoria rotic 07:49:25 l heart Novice disease of Atheroscle st[facility] george rotic coronary heart artery disease of without [facility] ge[facility] angina coronary pectoris artery without angina pectoris 12/26/2019 [facility] Physical Problem 2019-12-26 Mem oria restraint 07:49:25 l status Physical Berto n restraint status 12/26/2019 [facility] Unspecifie Problem 2019-12-26 M emoria d dementia 07:49:25 l without Novice behavioral Unspecifie disturbanc d dementia e without behavioral disturbanc e 12/26/2019 [facility] MCFP Problem 2019-12-26 Me moria (current) 07:49:25 l use of Long Jorge Alberto systemic term steroids (current) use of systemic steroids 12/26/2019 [facility] Hypokalemi Problem 2019-12-26 emoria a 07:49:25 l Jorge Alberto Hypokalemi a 12/26/2019 [facility] Obstructiv Problem 2019-12-26 M emoria e sleep 07:49:25 l apnea Jorge Alberto (adult) Obstructiv (pediatric e sleep ) apnea (adult) (pediatric ) 12/26/2019 [facility] Other Problem 2019-12-26 Memor ia disorders 07:49:25 l of Other Jorge Alberto phosphorus disorders metabolism of phosphorus metabolism 12/26/2019 [facility] Constipati Problem 2019-12-26 M emoria on, 07:49:25 l unspecifie Berto n d Constipati on, unspecifie d 12/26/2019 [facility] Fall on Problem 2019-12-26 Kalia aida same level 07:49:25 l from Fall on Jorge Alberto slipping, same level tripping from and slipping, stumbling tripping without and subsequent stumbling striking without against subsequent object, striking initial against encounter object, initial encounter 12/26/2019 [facility] Other Problem 2019-12-26 Memor ia acute 07:49:25 l postproced Other Gerda nn ural pain acute postproced ural pain 12/26/2019 [facility] Acute pain Problem 2019-12-26 M emoria due to 07:49:25 l trauma Acute Novice pain due to trauma 12/26/2019 [facility] Major Problem 2019-12-26 Memor ia depressive 07:49:25 l disorder, Major Berto n single depressive episode, disorder, unspecifie single d episode, unspecifie d 12/26/2019 [facility] Abrasion Problem 2019-12-26 Mem oria of right 07:49:25 l upper arm, Abrasion He rmann initial of right encounter upper arm, initial encounter 12/26/2019 [facility] Type 2 Problem 2019-12-26 Memor ia diabetes 07:49:25 l mellitus Type 2 Berto n with diabetes hyperglyce mellitus saloni with hyperglyce saloni 12/26/2019 [facility] Morbid Problem 2019-12-26 Memor ia (severe) 07:49:25 l obesity Morbid Jorge Alberto due to (severe) excess obesity calories due to excess calories 12/26/2019 [facility] Type 2 Problem 2019-12-26 Memor ia diabetes 07:49:25 l mellitus Type 2 Berto n with diabetes hypoglycem mellitus ia without with coma hypoglycem ia without coma 0 [facility] Hyperlipid Problem 2019-12-26 M emoria emia, 07:49:25 l unspecifie Berto n d Hyperlipid emia, unspecifie d 12/26/2019 [facility] Chronic Problem 2019-12-26 Kalia aida obstructiv 07:49:25 l e Chronic Novice pulmonary obstructiv disease, e unspecifie pulmonary d disease, unspecifie d 12/26/2019 [facility] Hypomagnes Problem 2019-12-26 M emoria emia 07:49:25 l Novice Hypomagnes emia 0 [facility] Unqualifie Problem 2019-12-26 M emoria d visual 07:49:25 l loss, Jorge Alberto right eye, Unqualifie normal d visual vision loss, left eye right eye, normal vision left eye 12/26/2019 [facility] Atheroscle Problem 2019-12-26 M emoria rosis of 07:49:25 l aorta Jorge Alberto Atheroscle rosis of aorta 12/26/2019 [facility] Spinal Problem 2019-12-26 Memor ia stenosis, 07:49:25 l cervical Spinal Berto n region stenosis, cervical region 12/26/2019 [facility] Repeated Problem 2019-12-26 Mem oria falls 07:49:25 l Repeated Berto n falls 12/26/2019 [facility] Laceration Problem 2019-12-26 M emoria without 07:49:25 l foreign Novice body of Laceration right without forearm, foreign initial body of encounter right forearm, initial encounter 12/26/2019 [facility] Presence Problem 2019-12-26 Mem oria of 07:49:25 l cerebrospi Presence He rmann nal fluid of drainage cerebrospi device nal fluid drainage device 12/26/2019 [facility] Personal Problem 2019-12-26 Mem oria history of 07:49:25 l sudden Personal Berto n cardiac history of arrest sudden cardiac arrest 12/26/2019 [facility] History of Problem 2019-12-26 M emoria falling 07:49:25 l History Jorge Alberto of falling 12/26/2019 [facility] Family Problem 2019-12-26 Memor ia history of 07:49:25 l diabetes Family Berto n mellitus history of diabetes mellitus 12/26/2019 [facility] Personal Problem 2019-12-26 Mem oria history of 07:49:25 l benign Personal Berto n neoplasm history of of the benign brain neoplasm of the brain 12/26/2019 [facility] Other long Problem 2019-12-26 M emoria term 07:49:25 l (current) 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 12/26/2019 [facility] Lethargic Problem Inactiv 2011-03-27 M emoria e 08:54:23 l Novice Lethargic Inactive Problem 03/27/2011 [facility] Blindness Problem Resolve 2020-02-29 M emoria of one eye d 21:43:44 l (disorder) Berto n Blindness of one eye (disorder) Resolved Problem 02/29/2020 right eye [facility], DOMONIQUE Azul, DOMONIQUE Kelly,[facility] Diabetes Problem Resolve 2020-02-29 Me moria mellitus d 21:43:44 l (disorder) Diabetes He rmann mellitus (disorder) Resolved Problem 02/29/2020 [facility], DOMONIQUE Azul, DOMONIQUE Kelly,[facility] Heart Problem Resolve 2020-02-29 Kalia aida failure d 21:43:44 l (disorder) Heart Gerda nn failure (disorder) Resolved Problem 02/29/2020 systilic [facility], DOMONIQUE Azul, DOMONIQUE Kelly,[facility] Morbid Problem Resolve 2020-02-29 Kalia aida obesity d 21:43:44 l (disorder) Morbid Herm mercy obesity (disorder) Resolved Problem 02/29/2020 [facility], DOMONIQUE Azul, DOMONIQUE Kelly,[facility] Obstructiv Problem Resolve 2020-02-29 Memoria e sleep d 21:43:44 l apnea Jorge Alberto syndrome Obstructiv (disorder) e sleep apnea syndrome (disorder) Resolved Problem 02/29/2020 [facility], DOMONIQUE Azul, DOMONIQUE Kelly,[facility] Myasthenic Problem Resolve 2020-02-29 Memoria crisis d 21:43:44 l (disorder) Berto n Myasthenic crisis (disorder) Resolved Problem 02/29/2020 [facility], DOMONIQUE Azul Diabetes Problem Resolve 2020-02-29 Me moria mellitus d 21:43:44 l type 2 Diabetes Berto n (disorder) mellitus type 2 (disorder) Resolved Problem 02/29/2020 [facility], DOMONIQUE Azul Altered Problem Active 2018-12-01 Kalia aida mental 21:28:18 l status Altered Jorge Alberto (finding) mental status (finding) Active Problem 12/01/2018 [facility], DOMONIQUE Kelly,[facility] Coronary Problem Active 2020-02-29 Mem oria arterioscl 21:43:44 l erosis Coronary Berto n (disorder) arterioscl erosis (disorder) Active Problem 02/29/2020 [facility], DOMONIQUE Azul,[facility] Craniotomy Problem Active 2018-12-01 M emoria (procedure 21:28:18 l ) Jorge Alberto Craniotomy (procedure ) Active Problem 12/01/2018 [facility] Hypertensi Problem Active 2020-02-29 M emoria ve 21:43:44 l disorder, Jorge Alberto systemic Hypertensi arterial ve (disorder) disorder, systemic arterial (disorder) Active Problem 02/29/2020 [facility], DOMONIQUE Azul,[facility] Hypothyroi Problem Active 2020-02-29 M emoria dism 21:43:44 l (disorder) Berto n Hypothyroi dism (disorder) Active Problem 02/29/2020 [facility], DOMONIQUE Azul,[facility] Itching Problem Active 2018-12-01 Kalia aida (finding) 21:28:18 l Itching Jorge Alberto (finding) Active Problem 12/01/2018 [facility] Intracrani Problem Active 2018-12-01 M emoria al 21:28:18 l meningioma Berto n (disorder) Intracrani al meningioma (disorder) Active Problem 12/01/2018 [facility] Pain Problem Active 2018-12-01 Memor ia (finding) 21:28:18 l Pain Novice (finding) Active Problem 12/01/2018 [facility] Visual Problem Active 2018-12-01 Memor ia disturbanc 21:28:18 l e Visual Novice (disorder) disturbanc e (disorder) Active Problem 12/01/2018 [facility] [place],[facility] Body mass Problem Active 2020-02-29 Me moria index 40+ 21:43:44 l - severely Body Berto n obese mass index (finding) 40+ - severely obese (finding) Active Problem 02/29/2020 [facility] OPID Jorge Alberto Myasthenia Problem Active 2020-02-29 M emoria gravis 21:43:44 l (disorder) Berto n Myasthenia gravis (disorder) Active Problem 02/29/2020 [facility] OPID Novice Recurrent Problem Active 2020-02-29 Me moria falls 21:43:44 l (finding) Novice Recurrent falls (finding) Active Problem 02/29/2020 [facility] OPID Novice Type II Problem Active 2020-02-29 Kalia aida diabetes 21:43:44 l mellitus Type II Gerda nn uncontroll diabetes ed mellitus (finding) uncontroll ed (finding) Active Problem 02/29/2020 [facility] OPID Novice Altered Problem Active 2011-03-27 Kalia aida mental 08:54:23 l status Altered Jorge Alberto mental status Active Problem 03/27/2011 [facility] Craniotomy Problem Active 2011-03-27 M emoria 08:54:23 l Jorge Alberto Craniotomy Active Problem 03/27/2011 [facility] HTN - Problem Active 2011-03-27 Memor ia Hypertensi 08:54:23 l on HTN - Jorge Alberto Hypertensi on Active Problem 1 [facility] Meningioma Problem Active 2011-03-27 M emoria of brain 08:54:23 l Jorge Alberto Meningioma of brain Active Problem 03/27/2011 [facility] Visual Problem Active 2011-03-27 Memor ia disturbanc 08:54:23 l e Visual Jorge Alberto disturbanc e Active Problem 03/27/2011 [facility] Itching Problem Active 2011-03-27 Kalia aida 08:54:23 l Itching Novice Active Problem 03/27/2011 [facility] Pain Problem Active 2011-03-27 Memor ia 08:54:23 l Pain Novice Active Problem 03/27/2011 [facility] BRAIN Diagnosis Active 2011-02-20 Mem oria NEOPLASM 14:11:00 l NOS BRAIN Novice NEOPLASM NOS Active Rehabilita tion ADMINISTRT Diagnosis Active 2011-02-04 Memoria VE ENCOUNT 11:31:00 l NOS Novice ADMINISTRT VE ENCOUNT NOS Active [facility] COMMUNICAT Diagnosis Active 2011-03-05 Memoria HYDROCEPHA 21:52:00 l TANJA Novice COMMUNICAT HYDROCEPHA TANJA Active [facility] SUBDURAL Diagnosis Active 2011-03-20 M emoria HEMORRHAGE 21:57:00 l SUBDURAL Berto n HEMORRHAGE Active Rehabilita tion DEHYDRATIO Diagnosis Active 2011-03-27 Memoria N 13:56:00 l Jorge Alberto DEHYDRATIO N Active [facility] MYASTHENIA Diagnosis Active 2018-09-30 Memoria GRAVIS 22:26:00 l WITHOUT Novice (ACUTE) MYASTHENIA EXACER GRAVIS WITHOUT (ACUTE) EXACER Active [facility] ILLNESS, Diagnosis Active 2018-09-08 M emoria UNSPECIFIE 11:41:00 l D ILLNESS, Berto n UNSPECIFIE D Active [facility] OCULAR Diagnosis Active 2018-09-22 Mem oria PAIN, 15:15:00 l RIGHT EYE OCULAR Gerda nn PAIN, RIGHT EYE Active [facility] UNQUALIFIE Diagnosis Active 2018-09-22 Memoria D VISUAL 15:15:00 l LOSS, LEFT Berto n EYE, ALEXIA UNQUALIFIE D VISUAL LOSS, LEFT EYE, ALEXIA Active [facility] UNSP DISP Diagnosis Active 2019-12-14 Memoria FX OF 09:22:00 l [facility] UNSP Jorge Alberto CERVICAL DISP FX OF VERTEBR SEVENTH CERVICAL VERTEBR Active [facility] Allergies, Adverse Reactions, Alerts Allergy Allergy Status Severity Reaction(s) Onset Inactive Treating Comm ents Source Name Type Date Date Clinician Gabapent Drug Active Rash [facility] 00 [place] Other Propensi Active Other (See IVIG [facility] ty to Comments) 02-10 causes [facility] - adverse 00:00: large Medical reaction 00 blisters Center s b/l legs Penicill Drug Active Rash [facility] ins Allergy 02-13 [facility] 00 [place] Salicyla Drug Active Rash [facility] ramakrishna Allergy 02-10 [facility] 00 [place] Ciproflo Drug Active Anaphylaxis [facility] xacin Allergy 02-10 [facility] 00 [place] Erythrom Drug Active Other (See Stomach [facility] ycin Intolera Comments) 02-10 cramping [facility] - nce 00:00: Medical 00 Center Levoflox Drug Active Anaphylaxis [facility] acin Allergy 02-10 [facility] - 00:00: Medical 00 [place] penicill penicill Active 2010-06 Memori a ins<sup> ins<sup> 1-14 l 1</sup> 1</sup> 06:00: Jorge Alberto Freitas erythrom erythrom Active 2010-06 Memori a ycin<sup ycin<sup 1-14 l >2</sup> >2</sup> 06:00: Berto gomez 00 Adhesive Adhesive Active 2010-06 Memori a Tape<sup Tape<sup 1-14 l >4</sup> >4</sup> 06:00: Berto gomez 00 aspirin< aspirin< Active 2010-06 Memori a sup>4</s sup>4</s 1-14 l up> up> 06:00: Jorge Alberto Freitas Adhesive Adhesive Active 2010-06 Memori a Tape<sup Tape<sup 1-14 l >6</sup> >6</sup> 06:00: Berto Freitas Aspirin Allergy Active [facility] TABS to [facility] (finding [place] [facility] ans Cefepime Allergy Active [facility] HCl SOLN to drug ity of (finding [place] ) Physici ans Erythrom Allergy Active [facility] ycin to drug ity of Derivati (finding [place] ves ) Physici ans Penicill Allergy Active [facility] ins to drug ity of (finding [place] ) Physici ans PHENobar Allergy Active [facility] bital to drug ity of TABS (finding [place] ) Physici ans Cortizon Allergy Active Univers e-10 to drug ity of (finding [place] ) Physici ans ciproflo ciproflo Active Memori a xacin xacin l [facility] heparin heparin Active Severe Memoria l [facility] phenobar phenobar Active Memori a bital bital l [place] cefepime cefepime Active Memori a l Jorge Alberto Cortizon Cortizon Active Memori a e-10 e-10 l Jorge Alberto aspirin aspirin Active Memoria l [place] erythrom erythrom Active Memori a ycin ycin l [place] penicill penicill Active Memori a ins ins l Jorge Alberto Silk Silk Active Memoria Tape Tape l Jorge Alberto gabapent gabapent Active Memori a in<sup>3 in<sup>3 l </sup> </sup> Jorge Alberto immune immune Active Memoria globulin globulin l intraven intraven Berto n ous<sup> ous<sup> 5</sup> 5</sup> Social History Social Habit Start Date Stop Date Quantity Comments Source Sex Assigned At [facility] Social History 2018-08-17 2018-08-17 [facility] ermann 08:45:08 08:45:08 Tobacco use and 2017-02-25 2017-02-25 Never used [facility] - exposure 00:00:00 00:00:00 [facility] Alcohol intake 2017-02-25 2017-02-25 Current [facility] es - 00:00:00 00:00:00 non-drinker of Medical Ce nter alcohol (finding) Smoking Status Start Date Stop Date Source Never smoker [facility] Medications Ordered Filled Start Stop Current Ordering Indication Dosage Frequency Signature Comments Components Source Medication Medication Date Date Medication? Clinician (SIG) Name Name azaTHIOprin azaTHIOprin 2019- Yes SUUR 1 Q0.5D TAKE 1 Univers e 50 MG e 50 MG 027 BILICILER TABLET it y of Oral Tablet Oral Tablet 00:00: M.D. TWICE [place] 00 DAILY Physici ans lansoprazol 2020-0 Yes 30 mg = 10 Memoria e 3 mg/mL 02-26 mL, PO, l oral 15:50: BID-Before Novice suspension 00 Meals, # 600 mL, 0 Refill(s) pregabalin 2020-0 Yes 25 mg = 1 Me moria 25 mg oral 02-26 cap, PO, l capsule 15:45: Q8H-01, 0 Gerda nn 00 Refill(s) Sulfamethox 2020-0 No 1 tab, PO, Memoria azole 800 02-26 [id number], X l MG / 15:45: 1 day, # 2 Jorge Alberto Trimethopri 00 tab, 0 m 160 MG Refill(s) Oral Tablet [Bactrim] predniSONE 2019-0 Yes 20 mg = 1 Me moria 20 mg oral - tab, PO, l tablet 15:45: Daily, X Novice 00 21 day, # 21 tab, 0 [...] 1 tab, PO, Memoria azole 800 02-26 [id number], 0 l MG / 15:17: Refill(s) Jorge Alberto Trimethopri 00 m 160 MG Oral Tablet [Bactrim] Insulin 2020-0 No 15 unit, Memori a Glargine 02-26 SUB-Q, l 100 UNT/ML 15:17: BID, 0 Gerda nn Injectable 00 Refill(s) Solution thiamine 2019-0 Yes 200 mg = 2 Mem oria 100 mg oral 02-26 tab, PO, l tablet 15:17: Daily, 0 Jorge Alberto 00 Refill(s) rosuvastati 2019- Yes 10 mg = 1 M emoria n 10 mg 02-26 tab, PO, l oral tablet 15:17: Bedtime, 0 Novice 00 Refill(s) predniSONE 2019- No 20 mg = 1 Me moria 20 mg oral 02-26 tab, PO, l tablet 15:17: Daily, 0 Jorge Alberto 00 Refill(s) Calcium 2019-0 No 500 mL, Memoria Chloride 02-26 500 ml/hr, l 0.0014 12:19: Infuse Novice MEQ/ML / 00 Over: 1 Potassium hr, [...] l intravenous 14:32: Dosing Herm mercy solution Weight 84.545, kg, ONCE, Start date: 02/25/20 9:32:00 CDT, Stop date: 02/25/20 9:32:00 CDT, Indication : Plasmapher esis Calcium 2020-0 No 2.5 gm, Memoria Gluconate 02-24 Route: IV, l 14:32: ONCE, Dosing Weight 84.545, kg, Start date: 02/25/20 9:32:00 CDT, Stop date: 02/25/20 9:32:00 CDT Calcium 2019-0 No Notes: Memoria Gluconate 02-22 WASTE: F/P l 14:30: - Sink; E Novice - [facility] Trash Bin albumin 2019-0 No Notes: Memoria human 5% 02-22 LOT#: l intravenous 14:08: Novice solution ___Mfg:___ ___ (Same as: Albuminar) "blood product derivative " WASTE: F/P - Red; E -Red MEDICATION WASTE Product Size: 25 gm Product Wasted: _0__ gm Sulfamethox 2019-0 No 1 tab, Kalia aida azole 800 02-22 Route: PO, l MG / 01:00: Drug Form: Jorge Alberto Trimethopri 00 TAB, m 160 MG Dosing Oral Tablet Weight [Bactrim] 84.545, kg, [id number], Start date: 02/22/20 20:00:00 CDT, Stop date: 02/28/20 8:00:00 CDT, 0 insulin 2019-0 No 30 unit, Memori a glargine 02-21 Route: l 14:00: SUB-Q, Jorge Alberto 00 Drug form: SOLN, BID, Start date: 02/22/20 9:00:00 CDT, Duration: 30 day, Stop date: 03/22/20 17:00:00 CDT, 0 Lactated 2019-0 No 1,000 mL, Kalia aida Ringers IV 02-21 Rate: 100 l 1,000 mL 12:37: ml/hr, Jorge Alberto 00 Infuse over: 10 hr, Route: IV, Dosing Weight 84.545 kg, Total Volume: 1,000, Start date: 02/22/20 7:37:00 CDT, Duration: 30 day, Stop date: 03/23/20 7:36:00 CDT, 1.91, m2, 0 Insulin 2020-0 No Notes: Memoria Lispro 9-23 (Same as: l 12:30: Humalog) Jorge Alberto Roll in palms of [...] Memoria 9-23 25 mL, l 01:57: Route: Jorge Alberto 00 IVP, Drug Form: INJ, Dosing Weight 84.545, kg, PRN, PRN Blood Glucose Results, Start date: 02/21/20 20:57:00 CDT, Duration: 30 day, Stop date: 03/22/20 20:56:00 CDT, 0 Glucagon 2020-0 No 1 mg, Memoria - Route: IM, l 01:57: Drug form: Novice 00 PDR/INJ, PRN, Dosing Weight 84.545, kg, [...] as: l 22:46: Humulin R) Jorge Alberto Roll in palms of hands gently; Do not shake vigorously . WASTE: F/P - Black; E - Municipal Trash Bin Stable for 31 days at room temperatur e Expires in days from ____Date Insulin No Notes: Memoria regular 02-20 (Same as: l 21:11: Humulin R) Novice Roll in palms of hands gently; Do not shake vigorously . WASTE: F/P - Black; E - Municipal Trash Bin Stable for 31 days at room temperatur e Expires in days from ____Date albumin No Notes: Memoria human 5% 02-20 LOT#: l intravenous 16:23: Jorge Alberto solution 00 ___Mfg:___ ___ (Same as: Albuminar) "blood product derivative " WASTE: F/P - Red; E -Red MEDICATION WASTE Product Size: 25 gm Product Wasted: _0__ gm Calcium No Notes: Memoria Gluconate 02-20 WASTE: F/P l 12:00: - Sink; E Novice - Municipal Trash Bin albumin No Notes: Memoria human 5% 02-20 LOT#: l intravenous 11:45: Novice solution 00 ___Mfg:___ ___ (Same as: Albuminar) "blood product derivative " WASTE: F/P - Red; E -Red MEDICATION WASTE Product Size: 25 gm Product Wasted: ___ gm Lyrica No Notes: Memoria 02-19 (Same as: l 15:07: Lyrica) Novice 00 Os-Roger 500 No Notes: Memor ia [...] Memoria patch 02-19 Route: l 02:00: TOP, Bedtime, Drug form: ERFILM, Start date: 02/19/20 21:00:00 CDT, Duration: 30 day, Stop date: 03/19/20 21:00:00 CDT, 0 albumin No Notes: Memoria human 5% 02-18 LOT#: l intravenous 17:05: Novice solution 00 ___Mfg:___ ___ (Same as: Albuminar) "blood product derivative " WASTE: F/P - Red; E -Red MEDICATION WASTE Product Size: 25 gm Product Wasted: _0__ gm Diphenhydra No 50 mg, Kalia aida mine 02-18 Route: l 17:00: IVP, ONCE, Novice Dosing Weight 84.545, kg, Start date: 02/19/20 12:00:00 CDT, Stop date: 02/19/20 12:00:00 CDT Calcium No Notes: Memoria Gluconate 02-18 WASTE: F/P l 15:00: - Sink; E Novice 00 - Municipal Trash Bin albumin No Notes: Memoria human 5% 02-18 LOT#: l intravenous 14:39: Novice solution 00 ___Mfg:___ ___ (Same as: Albuminar) [...] glargine 02-17 0.2 mL, l 22:00: Route: Novice SUB-Q, Drug form: SOLN, BID, Start date: 02/18/20 17:00:00 CDT, Duration: 30 day, Stop date: 03/19/20 9:00:00 CDT, 0 insulin 2020-0 No 15 unit, Memori a detemir 02-17 Route: l 21:06: SUB-Q, Novice BID, Dosing Weight 84.545, kg, Start date: 02/18/20 16:06:00 CDT, Duration: 30 day, Stop date: 03/19/20 9:00:00 CDT Dextrose 2020-0 No 12.5 gm, Memor ia 50% Syringe 02-17 25 mL, l (D50W) 21:05: Route: Jorge Alberto IVP, Drug Form: INJ, [...] . WASTE: F/P - Black; E - [place] Trash Bin Stable for 31 days at [...] s with feeding tube less than 14 Persian (Dobhoff, J-tube etc) and pediatric and patients. Tylenol No Notes: Do Memor ia 02-16 not exceed l 22:08: 4 gm/day. Jorge Alberto (Same as: Tylenol) Calcium No Notes: Memoria Gluconate 02-16 WASTE: F/P l 22:00: - Sink; E Novice 00 - Municipal Trash Bin albumin No Notes: Memoria human 5% 02-16 LOT#: l intravenous 21:47: Novice solution 00 ___Mfg:___ ___ (Same as: Albuminar) [...] -18 (Same as: l 21:00: Mestinon) pyridostigm No Notes: Kalia aida ine -18 (Same as: l 21:00: Mestinon) 30 mg = 1/2 x 60 mg TAB clonazePAM No Notes: Memor ia -18 (Same as l 18:45: KlonoPIN Novice ODT) Hazardous Drug Group 3:Reproduc tive risk Hazardous Drug -- Refer to safe handling procedure PPE Matrix Clonazepam No Notes: Memor ia -18 (Same as l 17:27: KlonoPIN Jorge Alberto ODT) Hazardous Drug Group 3:Reproduc tive risk Hazardous Drug -- Refer to safe handling procedure PPE Matrix Furosemide 2019- No Notes: Memor ia 20 MG Oral 02-16 (Same as: l Tablet 14:00: Lasix) Novice 00 May cause GI upset. Give with [...] No 12.5 gm, Memor ia 50% Syringe 02-16 25 mL, l (D50W) 05:59: Route: IVP, Drug Form: INJ, Dosing Weight 84.545, kg, PRN, PRN Blood Glucose Results, Start date: 02/17/20 0:59:00 CDT, Duration: 30 day, Stop date: 03/18/20 0:58:00 CDT, 0 Glucagon 2019-0 No 1 mg, Memoria 02-16 Route: IM, l 05:59: Drug form: PDR/INJ, PRN, Dosing Weight 84.545, kg, PRN Blood Glucose Results, Start date: 02/17/20 0:59:00 CDT, Duration: 30 day, Stop date: 03/18/20 0:58:00 CDT, 0 Insulin 2020-0 No Notes: Memoria Lispro 18 (Same as: l 05:59: Humalog) Roll in palms of hands gently; Do not shake vigorously . WASTE: F/P - Black; E - Municipal Trash Bin Stable for 28 days at room temperatur e. Expires in days from ____Date Dextrose 2019-0 No 25 mL, Memoria 50% Syringe 18 Route: l (D50W) 05:58: IVP, Jorge Alberto 00 Dosing Weight 84.545, kg, PRN, PRN Blood Glucose Results, Start date: 02/17/20 0:58:00 CDT, Duration: 30 day, Stop date: 03/18/20 0:57:00 CDT Glucagon 2020-0 No 1 mg, Memoria 02-16 Route: IM, [...] 60 mg = 1 M emoria ine Gowen 02-15 tab, PO, l 60 MG Oral 17:29: TID, 0 Gerda nn Tablet 00 Refill(s) [Mestinon] Clonazepam 0 No Notes: Memor ia 02-15 (Same As: l 17:29: KlonoPIN) Hazardous Drug Group 3:Reproduc tive risk Hazardous Drug -- Refer to safe handling procedure PPE Matrix Acetaminoph 2020-0 No 1,000 mg = Memoria en 500 MG 02-15 2 tab, PO, l Oral Tablet 15:49: TID, 0 Herm mercy [Tylenol] 00 Refill(s) Docusate No Notes: Memoria Sodium 50 02-15 (Same as l MG / 14:00: Senokot-S) Jorge Alberto sennosides, 00 Equiv. to SKILLED NURSING 8.6 MG Cassidy-Colac Oral Tablet e. Pyridostigm [...] ia 02-15 (Same as: l 14:00: Zoloft) 00 thiamine No 200 mg = 2 Mem oria 100 mg oral 02-15 tab, PO, l tablet 13:57: Daily Novice 00 3 ML Yes See Memoria Insulin, [...] a 02-15 Take 1 l 11:30: hour Novice 00 before or 2 hours after meal; Enteral feeds may interefere with the absorption of this medication . (Same as:Synthro id) heparin No Notes: Memoria sodium, 02-15 porcine l porcine 05:00: heparin Novice 2500 UNT/ML 00 Injectable Solution rosuvastati No [...] daily. Medi roger tablet 36 Center furosemide 2019-0 Yes 40mg [...] mouth [facility] - MG tablet 16:38: nightly. [facility] 36 Center amLODIPine 2020-0 Yes 5mg QD [...] 9-16 Units [facility] - (LANTUS 16:38: subcutaneo [facility] SOLOSTAR) 36 usly 2 Center 100 unit/mL [...] Alberto 00 30 tab, 0 Refill(s), Pharmacy: [facility] #[id number], 149.86, cm, 12/06/19 15:12:00 CDT, [...] 0 Prefilled Refill(s), Syringe other [Levemir] D50W 2019-0 No 12.5 gm, Memoria (bolus) IV 7-20 [...] 25 mL, l 13:18: Route: Jorge Alberto 00 IVP, Drug Form: INJ, Dosing Weight 90, kg, PRN, PRN Blood Glucose Results, Start date: 12/19/19 8:18:00 CDT, Duration: 30 day, Stop date: 01/18/20 8:17:00 CDT, 0 Glucagon 2020-0 No 1 mg, Memoria 7-20 Route: IM, l 13:18: Drug form: Novice 00 PDR/INJ, PRN, Dosing Weight 90, kg, [...] Potassium 2020-0 No Notes: Memori a Chloride 7-18 (Same as: l 1.33 MEQ/ML 18:56: Potassium H ermann Oral 00 Chloride) Solution Dextrose 2020-0 No 12.5 gm, Memor ia 50% Syringe 7-17 25 mL, l (D50W) 20:42: Route: Jorge Alberto IVP, Drug Form: INJ, Dosing Weight 90, kg, PRN, PRN Blood Glucose Results, Start date: 12/16/19 15:42:00 CDT, Duration: 30 day, Stop date: 01/15/20 15:41:00 CDT, 0 Glucagon 2020-0 No 1 mg, Memoria 7-17 Route: IM, l 20:42: Drug form: Novice 00 PDR/INJ, PRN, Dosing Weight 90, kg, PRN Blood Glucose Results, Start date: 12/16/19 15:42:00 CDT, Duration: 30 day, Stop date: 01/15/20 15:41:00 CDT, 0 Insulin 2020-0 No Notes: Memoria Lispro 7-17 (Same as: l 20:42: Humalog) Novice 00 Roll in palms of hands gently; Do not shake vigorously . WASTE: F/P - Black; E - Municipal Trash Bin Stable for 28 days at room temperatur e. Expires in days from ____Date potassium No Notes: Memori a phosphate-s -16 (Same as: l odium 22:00: Phos-NaK) Jorge Alberto phosphate 00 Each 1.5 250 mg-280 gm pkt has mg-160 mg 250mg oral powder phosphorou for s. Mix reconstitut w/2.5oz ion water and stir. Potassium No Notes: Memori a Chloride 7-16 (Same as: l 01:00: KCL) Novice Infuse over 2 hours. Morphine No Notes: Memoria 7-15 (Same l 23:52: as:MORPhin Jorge Alberto 00 e Sulfate) potassium No Notes: Memori a phosphate 7-14 (Same as: l 22:19: K Novice 00 Phosphate. ) Do not infuse phosphorou [...] days. Shake well before use. (Same as:Baljeet d) Compound ed Product - formulatio n not commercial ly available* * insulin, No Notes: Memoria isophane 7-14 (Same as: l 00:58: Humulin N) Jorge Alberto 00 Roll in palms of hands gently; Do not shake vigorously . WASTE: F/P - Black; E - Municipal Trash Bin Stable for 31 days at room temperatur e Expires in days from ____Date Albuterol No Notes: Memori a 0.833 MG/ML - (Same as: l / 21:35: Duoneb) Ipratropium 00 Gowen 0.167 MG/ML Inhalant Solution Furosemide No Notes: Memor ia 7-13 (Same as: l 19:00: Lasix) MEDICATION WASTE Product Size: 40 mg Product Wasted: ___ mg Potassium No Notes: Memori a Chloride 7-13 (Same as: l 13:51: Potassium Chloride) Furosemide [...] mL 12-10 Rate: 75 l 05:31: ml/hr, Novice Infuse over: 13.3 hr, Route: IV, Dosing Weight 90 kg, Total Volume: 1,000, Start date: 12/11/19 0:31:00 CDT, Duration: 1 day, Stop date: 12/12/19 0:30:00 CDT, 1.98, m2, 0 pantoprazol No Notes: For Memoria e 12-10 IV push l 02:00: reconstitu Novice te with 10 ml 0.9% sodium chloride and push over 2 minutes. (Same as: Protonix) Lovenox No Notes: Memoria -12 (Same as: l 02:00: Lovenox) Novice 00 Lanolin No Notes: Memoria 0.157 MG/MG [...] upset. Give with food or milk. Dextrose 2020-0 No 12.5 gm, Memor ia 50% Syringe 7-11 25 mL, l (D50W) 16:56: Route: Novice 00 IVP, Drug Form: INJ, Dosing Weight 90, kg, PRN, PRN Blood Glucose Results, Start date: 12/10/19 11:56:00 CDT, Duration: 30 day, Stop date: 01/09/20 11:55:00 CDT, 0 Glucagon 2020-0 No 1 mg, Memoria 7-11 Route: IM, l 16:56: Drug form: Novice 00 PDR/INJ, PRN, Dosing Weight 90, kg, PRN Blood Glucose Results, Start date: 12/10/19 11:56:00 CDT, Duration: 30 day, Stop date: 01/09/20 11:55:00 CDT, 0 Insulin 2019-0 No Notes: Memoria Lispro 7-11 (Same as: l 16:56: Humalog) Jorge Alberto 00 Roll in palms of hands gently; Do not shake vigorously . WASTE: F/P - Black; E - Municipal Trash Bin Stable for 28 days at room temperatur e. Expires in days from ____Date Dextrose 5% 2019-0 No 1,000 mL, M emoria with 0.45% [...] over 2 minutes. (Same as: Protonix) pantoprazol 2020-0 No Notes: For Memoria e 12-08 IV push l 17:40: reconstitu te with [...] - (Same as: l 20:35: Lasix) Tylenol 0 No Notes: Do Memor ia - not exceed l 17:17: 4 gm/day. (Same as: Tylenol) Dextrose 0 No 12.5 gm, Memor ia 50% Syringe 12-05 25 mL, l (D50W) 17:15: Route: IVP, Drug Form: INJ, Dosing Weight 90, kg, PRN, PRN Blood Glucose Results, Start date: 12/06/19 12:15:00 CDT, Duration: 30 day, Stop date: 01/05/20 12:14:00 CDT, 0 Glucagon No 1 mg, Memoria 12-05 Route: IM, l 17:15: Drug form: Jorge Alberto 00 PDR/INJ, PRN, Dosing Weight 90, kg, PRN Blood Glucose Results, Start date: 12/06/19 12:15:00 CDT, Duration: 30 day, Stop date: 01/05/20 12:14:00 CDT, 0 Insulin 2019-0 No Notes: Memoria regular 12-05 (Same as: [...] 17:10: Pepcid) Jorge Alberto [Pepcid] 00 chlorhexidi 2019-0 No Notes: Kalia aida ne 12-05 (Same As: l gluconate 14:00: Peridex) Herm mercy 1.2 MG/ML 00 Mouthwash ocular 0 No Notes: Memoria lubricant 12-05 (Same as: l 11:00: Lacri-Lube Novice 00 , Puralube, Duratears Naturale, Artificial Tears, and Tears Again ) chlorhexidi 0 No Notes: Kalia aida ne - (Same As: l gluconate 05:13: Peridex) Herm mercy 1.2 MG/ML 00 Mouthwash Hydrocortis 2020-0 No Notes: Kalia aida one 12-05 (Same as: l 05:00: Solu-BERKLEY 00 F) Neurontin 2019-0 No Notes: Memori a 12-05 (Same as: l 02:00: Neurontin) NS 1,000 mL 2020-0 No 1,000 mL, M emoria 12-05 Rate: 40 l 01:50: ml/hr, Infuse over: 25 hr, Route: IV, Dosing Weight 90 kg, Total Volume: 1,000, Start date: 12/05/19 20:50:00 CDT, Duration: 30 day, Stop date: 01/04/20 20:49:00 CDT, 1.98, m2, 0 Baclofen 2019-0 No 5 mg, 1 Memori a 12-05 [...] Stop date: 12/06/19 0:00:00 CDT, 0 Acetaminoph 2019- No Notes: Kalia aida en 12-04 Infuse [...] being intubated (unless the nurse is a YOUTH SPECIALIST). Same as: Diprivan norepinephr No Route: IV, [...] Drug form: l 100 15:46: INJ, Start Novice microgram date: 12/05/19 10:46:00 CDT, Stop date: 12/05/19 11:46:00 CDT lidocaine 2019-0 No Route: IV, Me moria (ANES) 12-04 Drug form: l 15:35: INJ, ONCE, Jorge Alberto 00 Stop date: 12/05/19 10:35:00 CDT phenylephri 2019-0 No Route: IV, Memoria ne (ANES) 12-04 Drug form: l 15:25: INJ, ONCE, Novice 00 Stop date: 12/05/19 10:25:00 CDT propofol 2019-0 No Route: IV, Mem oria (ANES) 12-04 Drug form: l 14:44: INJ, ONCE, Stop date: 12/05/19 9:44:00 CDT succinylcho 2019-0 No Route: IV, Memoria line (ANES) 12-04 Drug form: l 14:44: INJ, ONCE, Stop date: 12/05/19 9:44:00 CDT fentaNYL 2019-0 No Route: IV, Mem oria (ANES) 12-04 Drug form: l 14:44: INJ, ONCE, Stop date: 12/05/19 9:44:00 CDT dexamethaso 2019- No Route: IV, Memoria ne (ANES) 12-04 Drug form: l 14:39: INJ, ONCE, Jorge Alberto 00 Stop date: 12/05/19 9:39:00 CDT ePHEDrine 2019-0 No Route: IV, Me moria (ANES) 12-04 Drug form: l 13:58: INJ, ONCE, Jorge Alberto 00 Stop date: 12/05/19 8:58:00 CDT Sodium 2020-0 No Route: IV, Memor ia Chloride 7-06 Total l 0.9% IV 13:55: Volume: Jorge Alberto (ANES) 500 00 500, Start mL date: 12/05/19 8:55:00 CDT, Stop date: 12/05/19 9:55:00 CDT propofol 2020-0 No Route: IV, Mem oria (ANES) 10 12-04 Drug form: l mg 13:55: INJ, Start Jorge Alberto 00 date: 12/05/19 8:55:00 CDT, Stop date: 12/05/19 9:55:00 CDT SUFentanil 2019-0 No Route: IV, M emoribobby (ANES) 50 12-04 Drug form: l microgram [...] Isolyte S 2020-0 No Route: IV, Me hurtado PH 7.4 7- Total l (ANES) 1000 13:08: Volume: Her restrepo mL 00 1,000, Start date: 12/05/19 8:08:00 CDT, Stop date: 12/05/19 9:08:00 CDT Albuterol 2019-0 No Notes: Memori a 0.833 MG/ML 12-04 (Same as: l / 13:00: Duoneb) Novice Ipratropium 00 Gowen 0.167 MG/ML Inhalant Solution Humalog 2019-0 No Notes: Memoria - (Same as: l 21:30: Humalog) Novice 00 Roll in palms of hands gently; Do not shake vigorously . WASTE: F/P - Black; E - Municipal Trash Bin Stable for 28 days at room temperatur e. Expires in days from ____Date Humalog 0 No Notes: Memoria 7-05 (Same as: l 18:08: Humalog) Novice 00 Roll in palms of hands gently; Do not shake vigorously . WASTE: F/P - Black; E - Municipal Trash Bin Stable for 28 days at room temperatur e. Expires in days from ____Date Humalog 0 No Notes: Memoria 7- (Same as: l 23:26: Humalog) Novice Roll in palms of hands gently; Do not shake vigorously . WASTE: F/P - Black; E - Municipal Trash Bin Stable for 28 days at room temperatur e. Expires in days from ____Date Insulin 2019-0 No Notes: Memoria Lispro - (Same as: l 05:57: Humalog) Jorge Alberto 00 Roll in palms of hands gently; Do not shake vigorously . WASTE: F/P - Black; E - Municipal Trash Bin Stable for 28 days at room temperatur e. Expires in days from ____Date Insulin 2020-0 No 20 unit, Memori a Glargine 12-01 0.2 mL, l 14:00: Route: Jorge Alberto SUB-Q, Drug form: SOLN, Daily, Dosing Weight 90, kg, Start date: 12/02/19 9:00:00 CDT, Duration: 30 day, Stop date: 12/31/19 9:00:00 CDT, 0 Levemir 2020-0 No 20 unit, Memori a 12-01 Route: l 02:00: SUB-Q, Jorge Alberto Bedtime, Dosing Weight 90, kg, Start date: [...] Expires in days from ____Date Insulin No 20 unit, Memori a Glargine 7-01 0.2 mL, l 100 UNT/ML 02:00: Route: Gerda nn Injectable 00 SUB-Q, Solution Drug form: [Lantus] SOLN, Q12H, Dosing Weight 90, kg, Start date: 11/29/19 21:00:00 CDT, Duration: 30 day, Stop date: 12/29/19 9:00:00 CDT, 0 Lidocaine No Notes: Memori a Hydrochlori 6-30 (Same as: l de 10 MG/ML 21:00: Xylocaine) Novice Injectable 00 Solution Saline No Notes: Memoria Flush 0.9% 6-30 (Same as: l 21:00: BD Novice Posiflush) Saline No Notes: Memoria Flush 0.9% 6-30 (Same as: l 20:21: BD Novice 00 Posiflush) Dextrose 5% No 1,000 mL, [...] Tablet 00 sennosides, No Notes: Kalia aida SKILLED NURSING 6-27 (Same as: l 02:00: Senokot) Jorge [...] - (Same l 14:00: as:Altace) Jorge Alberto Oxycodone 2020-0 No Notes: Memori a Hydrochlori 11-24 (Same as: l de 1 MG/ML 12:15: 'Roxicodon H ermann Oral 00 e) Solution rosuvastati 2019-0 No Notes: Kalia aida n 11-24 (Same As: l 02:00: Crestor) Novice 00 Acetaminoph 2019-0 Yes 650 mg = 2 Memoria en 325 MG 6-25 tab, PO, l Oral Tablet 17:08: PRN, 0 Herm mercy [Tylenol] 00 Refill(s) clonazePAM 2020-0 Yes 0.5 mg = 1 M emoria 0.5 mg oral 6-25 tab, PO, l tablet 17:08: BID, 0 Novice 00 Refill(s) sertraline 2020-0 Yes 25 mg = 1 Me moria 25 mg oral 6-25 tab, PO, l tablet 17:08: Daily, 0 Novice 00 Refill(s) predniSONE 2020-0 Yes 20 mg = 1 Me moria 20 mg oral 6-25 tab, PO, l tablet 17:08: Daily, 0 Novice 00 Refill(s) rosuvastati 2020-0 Yes 20 mg [...] 00 PO, Daily, 0 Refill(s) Klor-Con 10 2019-0 No = 1 tab, Me moria 6-25 [...] -24 (Same as: l 23:05: Humulin R) Novice Roll in palms of hands gently; Do not shake vigorously . WASTE: F/P - Black; E - Municipal Trash Bin Stable for 31 days at room temperatur e Expires in days from ____Date Dextrose 2019-0 No 12.5 gm, Memor ia 50% Syringe 24 25 mL, l (D50W) 22:47: Route: Jorge Alberto IVP, Drug Form: INJ, Dosing Weight 90, kg, PRN, PRN Blood Glucose Results, Start date: 11/23/19 17:47:00 CDT, Duration: 30 day, Stop date: 12/23/19 17:46:00 CDT, 0 Glucagon 2019-0 No 1 mg, Memoria 6-24 Route: IM, l 22:47: Drug form: Novice 00 PDR/INJ, PRN, Dosing Weight 90, kg, PRN Blood Glucose Results, Start date: 11/23/19 17:47:00 CDT, Duration: 30 day, Stop date: 12/23/19 17:46:00 CDT, 0 Insulin 2019-0 No Notes: Memoria regular 6-24 (Same as: l 22:47: Humulin R) Roll in palms of hands gently; Do not shake vigorously . WASTE: F/P - Black; E - Municipal Trash Bin Stable for 31 days at room temperatur e Expires in days from ____Date gabapentin No Notes: Memor ia -24 (Same as: l 21:00: Neurontin) Lovenox 0 No Notes: Memoria -24 (Same as: l 16:42: Lovenox) Lasix No Notes: Memoria -24 (Same as: l 15:44: Lasix) May cause GI upset. Give with food or milk. Kayexalate No 15 gm, Memor ia 11-22 Route: PO, l 15:36: Drug form: SUSP, ONCE, Dosing Weight 90, kg, Start date: 11/23/19 10:36:00 CDT, Stop date: 11/23/19 10:36:00 CDT Insulin 2019-0 No 5 unit, Memoria regular 11-22 Route: l 15:35: IVP, ONCE, Dosing Weight 90, kg, Start date: 11/23/19 10:35:00 CDT, Stop date: 11/23/19 10:35:00 CDT Dextrose 2019-0 No 50 mL, Memoria 50% Syringe 11-22 Route: l (D50W) 15:35: IVP, Dosing Weight 90, kg, ONCE, Start date: 11/23/19 10:35:00 CDT, Stop date: 11/23/19 10:35:00 CDT normal 2019-0 No 1,000 mL, Memori [...] Not Crush) sennosides, No Notes: Kalia aida SKILLED NURSING -24 (Same as: l 12:53: Senokot) Albuterol No Notes: Memori a 0.833 MG/ML 11-22 (Same as: l / 11:46: Duoneb) Ipratropium 00 [place] 0.167 MG/ML Inhalant Solution Synthroid No Notes: Memori a 6-24 Take 1 l 11:30: hour before or 2 hours after meal; Enteral feeds may interefere with the absorption of this medication . (Same as:Synthro id) remove No Notes: Memoria patch 11-22 Remove l 10:00: patch 12 Nov[place] 00 hours after applicatio n each day. Pyridostigm No Notes: Kalia aida ine 11-22 (Same as: l 05:00: Mestinon) Amlodipine No Notes: Memor ia -24 (Same as: l 04:45: Norvasc) Enoxaparin No [...] 11-21 25 mL, l (D50W) 21:16: Route: Novice 00 IVP, Drug Form: INJ, Dosing Weight 100, kg, PRN, PRN Blood Glucose Results, Start date: 11/22/19 16:16:00 CDT, Duration: 30 day, Stop date: 12/22/19 16:15:00 CDT, 0 Glucagon No 1 mg, Memoria 6 Route: IM, l 21:16: Drug form: PDR/INJ, PRN, Dosing Weight 100, [...] CDT Calcium No 500 mL, Memoria Chloride 6- Infuse l 0.0014 16:17: Over: 1 Novice MEQ/ML / 00 hr, Route: Potassium IV, [...] 11-21 Infuse l 0.0014 12:32: Over: 1 Novice MEQ/ML / 00 hr, Route: Potassium IV, [...] PO, l oral tablet 21:12: Bedtime, # Novice 17 180 tab, 3 Refill(s) amLODIPine 2018-06 Yes 10 mg, PO, M emoria 10 mg oral 0-04 Daily, # l tablet 21:09: 30 tab, 0 Berto n 00 Refill(s) Ergocalcife 2018-06 Yes 50,000 Kalia aida rol 71331 0-04 IntlUnit = l UNT Oral 21:09: [...] SUB-Q, l 100 UNT/ML 21:09: Daily, # restrepo Injectable 00 15 mL, 0 Solution Refill(s) [Lantus] linezolid 2018-06 Yes 600 mg = 1 Me moria 600 mg oral 0-04 tab, PO, l tablet 21:09: [id number], X Gerda nn 00 7 day, # [...] day, # 120 tab, 0 Refill(s) Metronidazo 2019-1 Yes 500 mg = 1 Memoria le 500 MG 0-04 tab, PO, l Oral Tablet 21:09: [id number], X H ermann 00 7 day, # 21 tab, 0 Refill(s) predniSONE 2018-06 Yes 25 mg = 5 Me moria 5 mg oral 0-04 tab, PO, l tablet 21:09: Daily, # Novice 00 150 tab, 0 Refill(s) pyridostigm 2018-06 [...] 2 tab, PO, Memoria azole 800 0-04 [id number], X l MG / 21:09: 7 day, [...] oral 0-04 tab, PO, l tablet 18:44: [id number], 0 Gerda nn 00 Refill(s) meclizine 2018-06 No 12.5 mg = Mem oria 12.5 mg 0-04 1 tab, PO, l oral tablet 18:44: TID, PRN He rmann 00 Dizziness, 0 Refill(s) melatonin 3 2018-06 No 6 mg = 2 Me moria mg oral 0-04 tab, PO, l tablet 18:44: Bedtime, Novice 00 PRN Sleep, 0 Refill(s) Metronidazo 2018-06 No 500 mg = 1 Memoria le 500 MG 0-04 tab, PO, l Oral Tablet 18:44: [id number], 0 H ermann 00 Refill(s) QUEtiapine 2018-06 No 25 mg = 1 Me moria 25 mg oral 0-04 tab, PO, l tablet 18:44: Bedtime, 0 Gerda nn 00 Refill(s) Sulfamethox 2018-06 No 2 tab, PO, Memoria azole 800 0-04 [id number], 0 l MG / 18:44: Refill(s) Jorge Alberto Trimethopri 00 m 160 MG Oral Tablet [Bactrim] Acetaminoph 2018-06 No 650 mg = 2 Memoria en 325 MG 0-04 tab, PO, l Oral Tablet 18:44: Q6H, PRN He rmann 00 Pain Score 7-10, 0 Refill(s) Ergocalcife 2018-06 No 50,000 Kalia aida rol [id number] 0-04 IntlUnit = l UNT Oral 18:44: [...] 0-03 (Same as: l Tablet 14:00: Lasix) Novice [Lasix] 00 May cause GI upset. Give [...] PO, Jorge Alberto 00 Drug form: TAB, [id number], Dosing Weight 90.909, kg, Start date: 02/26/19 17:00:00 CDT, Duration: 10 day, Stop date: 03/08/19 8:00:00 CDT, ABX Indication : Skin/Soft Tissue Infection, 0 Sulfamethox No 2 tab, Kalia aida azole 800 02-26 Route: PO, l MG / 22:00: Drug Form: Jorge Alberto Trimethopri 00 TAB, m 160 MG Dosing Oral Tablet Weight [Bactrim] 90.909, kg, [id number], Start date: 02/26/19 17:00:00 CDT, Duration: 10 [...] Kalia aida 02-26 Route: l 17:36: IVP, Novice 00 Q20Min, Dosing Weight 90.909, kg, PRN Elevated BP, Start date: 02/26/19 12:36:00 CDT, Duration: 2 doses or times, Stop date: Limited # of times Labetalol 0 No 10 mg, Memori a 02-26 Route: l 17:36: IVP, Nov[place] 00 Q5Min, Dosing Weight 90.909, kg, PRN [...] Memori a 02-26 Route: l 17:36: IVP, Nov[place] 00 Q2MIN, Dosing Weight 90.909, kg, PRN Narcotic Reversal, Start date: 02/26/19 12:36:00 CDT, Duration: 8 doses or times, Stop date: Limited # of times Ondansetron 2018-0 No 4 mg, Memor ia 02-26 Route: l 17:36: IVP, ONCE, Novice Dosing Weight 90.909, kg, PRN Nausea & [...] Route: l 04:53: IVP, Jorge Alberto 00 Q5Min, Dosing Weight 90.909, kg, PRN Elevated BP, Start date: 02/22/19 23:53:00 CDT, Duration: 5 doses or times, Stop date: Limited # of times Acetaminoph 2019-0 No 1,000 mg, M eloinaria en 02-23 Route: PO, l 04:53: Drug [...] Memori a 02-23 Route: l 04:53: IVP, Novice 00 Q2MIN, Dosing Weight 90.909, kg, PRN [...] Memoria regular 02-23 Route: l 04:53: SUB-Q, Novice 00 Sliding Scale, Dosing Weight 90.909, kg, [...] Route: l de 10 MG/ML 20:00: INTRADERM, Novice Injectable Dosing Solution Weight 90.909, kg, ONCALL, [...] 0.9% - Route: l 18:20: IVP, Drug Novice 00 Form: INJ, Dosing Weight 90.909, kg, PRN, PRN Line Flush, Start date: 02/21/19 13:20:00 CDT, Duration: 30 day, Stop date: 03/23/19 13:19:00 CDT Lidocaine No 2 spray, Kalia aida Hydrochlori 02-21 Route: l de 20 MG/ML 18:20: TOP, ONCE, Jorge Alberto Topical 00 Start [place] date: 02/21/19 13:20:00 CDT, Stop date: 02/21/19 13:20:00 CDT Lidocaine No Notes: Memori a Hydrochlori - (Same as: l de 10 MG/ML 17:00: Xylocaine) Novice Injectable 00 Solution Saline No 10 mL, Memoria Flush 0.9% 02-21 Route: l 16:54: IVP, Drug Jorge Alberto 00 Form: INJ, Dosing Weight 90.909, kg, PRN, PRN Line Flush, Start date: 02/21/19 11:54:00 CDT, Duration: 30 day, Stop date: 03/23/19 11:53:00 CDT Saline No Notes: Memoria Flush 0.9% 9-23 (Same as: l 05:00: BD Jorge Alberto 00 Posiflush) Lidocaine No Notes: Memori a Hydrochlori 9- Preservati l de 10 MG/ML 22:00: ve free. He rmann Injectable 00 (Same as: Solution Xylocaine MPF) Saline No Notes: Memoria Flush 0.9% 9-22 (Same as: l 21:25: BD Jorge Alberto 00 Posiflush) insulin, No Notes: Memoria isophane 9-22 (Same as: l 12:25: Humulin N) Novice 00 Roll in palms of hands gently; Do not shake vigorously . WASTE: F/P - Black; E - Municipal Trash Bin Stable for 31 days at room temperatur e Expires in days from ____Date Melatonin No Notes: Memori a 02-20 (Same as: l 08:41: Melatonin) Jorge Alberto 00 Zyprexa No Notes: Memoria 02-20 (Same As: l 04:51: ZyPREXA Novice 00 IM). insulin, No Notes: Memoria isophane [...] detemir 02-18 Non-Formul l 14:00: jordi Drug Novice (Same as Levemir) "Single Patient Use Only" [...] s with feeding tube less than 14 Persian (Dobhoff, J-tube etc) and pediatric and patients. [...] Non-Formul l 22:00: jordi Drug Jorge Alberto (Same as Levemir) "Single Patient Use Only" Do not hold insulin without contacting prescriber WASTE: F/P - Black; E - Municipal Trash Bin Stable for 42 days at room temperatur e Expires in days from ____Date Iohexol No Notes: Memoria 02-17 (same l 14:52: as:Omnipaq Novice 00 ue 350). WASTE: F/P - Black; E - Municipal Trash Bin insulin No Notes: Soyoria detemir 02-17 Non-Formul l 14:38: jordi Drug [...] Product Wasted: ___ mg Famotidine No [facility] (Same as: l 14:00: Pepcid) [...] Memoria 02-14 (Same as: l 16:30: Humalog) Novice 00 Roll in palms of hands gently; Do not shake vigorously . WASTE: F/P - Black; E - Municipal Trash Bin Stable for 28 days at room temperatur e. Expires in days from ____Date Levemir No Notes: Memoria 02-14 Non-Formul l 14:00: jordi Drug Novice 00 (Same as Levemir) "Single Patient Use Only" Do not hold insulin without contacting prescriber WASTE: F/P - Black; E - Municipal Trash Bin Stable for 42 days at room temperatur e Expires in days from ____Date Humalog No Notes: Memoria 02-14 (Same as: l 12:30: Humalog) Jorge Alberto Roll in palms of [...] Memoria 02-14 Same as l 07:00: Merrem Novice 00 MEDICATION WASTE Product Size: 500 mg Product Wasted: ___ mg Insulin No Notes: Memoria Lispro 02-14 (Same as: l 02:57: Humalog) Jorge Alberto Roll in palms of hands gently; Do not shake vigorously . WASTE: F/P - Black; E - Municipal Trash Bin Stable for 28 days at room temperatur e. Expires in days from ____Date Dextrose No 12.5 gm, Memor ia 50% Syringe 02-14 25 mL, l 01:33: Route: Novice 00 IVP, Drug Form: INJ, Dosing Weight 90.909, kg, PRN, PRN Blood Glucose Results, Start date: 02/13/19 20:33:00 CDT, Duration: 30 day, Stop date: 03/15/19 20:32:00 CDT, 0 Glucagon 2019-0 No 1 mg, Memoria 02-14 Route: IM, l 01:33: Drug form: Novice 00 PDR/INJ, PRN, Dosing Weight 90.909, kg, PRN Blood Glucose Results, Start date: 02/13/19 20:33:00 CDT, Duration: 30 day, Stop date: 03/15/19 20:32:00 CDT, 0 Insulin 2019-0 No Notes: Memoria Lispro 02-14 (Same as: l 01:33: Humalog) Roll in palms of hands gently; Do not shake vigorously . WASTE: F/P - Black; E - [place] Trash Bin Stable for 28 days at [...] Memoria regular 02-14 Route: l 01:32: SUB-Q, Jorge Alberto 00 TID-Before Meals, Dosing Weight 90.909, kg, PRN Blood Glucose Results, Start date: 02/13/19 20:32:00 CDT, Duration: 30 day, Stop date: 03/15/19 20:31:00 CDT Morphine No Notes: Memoria 9-15 (Same l 22:52: as:MORPhin Novice e Sulfate) Insulin No Notes: Memoria Lispro 9-15 (Same as: l 04:38: Humalog) Roll in palms of hands gently; Do not shake vigorously . WASTE: F/P - Black; E - Municipal Trash Bin Stable for 28 days at room temperatur e. Expires in days from ____Date Saline No Notes: Memoria Flush 0.9% 9-14 (Same as: l 21:00: BD Novice Posiflush) Ativan No Notes: Memoria 9-14 (Same as: l 17:02: Ativan) Lidocaine No 5 mL, Memoria Hydrochlori 14 Route: l de 10 MG/ML 17:00: INTRADERM, Jorge Alberto Injectable Dosing Solution Weight 90.909, kg, ONCALL, For PICC line insertion. , Start date: 02/12/19 12:00:00 CDT, Duration: 30 day, Stop date: 03/14/19 11:59:00 CDT Saline No Notes: Memoria Flush 0.9% 9-14 (Same as: l 16:23: BD Jorge Alberto Posiflush) Morphine No Notes: Memoria 9-14 (Same l 16:12: as:MORPhin Novice 00 e Sulfate) Isolyte S No Notes: Memori a PH 7.4 9-14 (Same as: l 06:30: Isolyte S Novice 00 PH 7.4) Isolyte S No Notes: Memori a PH-7.4 9-14 (Same as: l (Bolus) IV 03:53: Isolyte S He rmann PH7.4) Ativan No Notes: Memoria 9-13 (Same as: l 22:10: Ativan) Novice 00 Ativan No 1 mg, Memoria 9-13 Route: IV, l 22:08: ONCE, Jorge Alberto Dosing Weight 90.909, kg, Start date: 02/11/19 17:08:00 CDT, Stop date: 02/11/19 17:08:00 CDT Morphine No Notes: Memoria 9-13 (Same l 22:08: as:MORPhin e Sulfate) Sertraline No Notes: Memor ia 02-11 (Same as: l 14:00: Zoloft) Insulin No Notes: Memoria Lispro 02-11 (Same as: l 04:10: Humalog) Roll in palms of hands gently; Do not shake vigorously . WASTE: F/P - Black; E - Municipal Trash Bin Stable for 28 days at room temperatur e. Expires in days from ____Date Insulin No Notes: Memoria Lispro 02-11 (Same as: l 04:00: Humalog) Roll in [...] over 2.5 hours Levemir No Notes: Memoria 911 Non-Formul l 22:00: jordi Drug (Same as [...] 100 Memoria 9-11 ml/min, l 13:00: Time Novice Critical Medication , Start date: 02/09/19 8:00:00 [...] Memoria - (Same as: l 12:30: Humalog) Jorge Alberto [...] 9-10 Route: IM, l 06:33: Drug form: Jorge Alberto 00 PDR/INJ, PRN, Dosing Weight 90.909, kg, PRN Blood Glucose Results, Start date: 02/08/19 1:33:00 CDT, Duration: 30 day, Stop date: 03/10/19 1:32:00 CDT, 0 Insulin 0 No Notes: Memoria Lispro 9-10 (Same as: l 06:33: Humalog) Novice 00 Roll in palms of hands gently; Do not shake vigorously . WASTE: F/P - Black; E - Municipal Trash Bin Stable for 28 days at room temperatur e. Expires in days from ____Date Humalog 2018-0 No Notes: Memoria 9-10 (Same as: l 03:51: Humalog) Novice 00 Roll in palms of hands gently; Do not shake vigorously . WASTE: F/P - Black; E - Municipal Trash Bin Stable for 28 days at room temperatur e. Expires in days from ____Date NS (Bolus) 2018-0 No 500 mL, Kalia aida IV 9-10 500 ml/hr, l 03:50: Infuse Novice 00 Over: 1 hr, Route: IV, ONCE, [...] 03/09/19 22:49:00 CDT, 1.99, m2, 0 remove 2019-0 No 1 patch, Memoria patch 02-08 Route: l 02:00: TOP, Jorge Alberto 00 Bedtime, Drug form: ERFILM, Start date: 02/07/19 21:00:00 CDT, Duration: 30 day, Stop date: 03/08/19 21:00:00 CDT, 0 Humalog 2018-0 No Notes: Memoria 9-10 (Same as: l 01:20: Humalog) Jorge Alberto 00 Roll in palms of hands gently; Do not shake vigorously . WASTE: F/P - Black; E - Municipal Trash Bin Stable for 28 days at room temperatur e. 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 Give with [...] 02-05 Route: IM, l 21:39: Drug form: Novice PDR/INJ, PRN, Dosing Weight 90.909, kg, PRN Blood Glucose Results, Start date: 02/05/19 16:39:00 CDT, Duration: 30 day, Stop date: 03/07/19 16:38:00 CDT, 0 Insulin 2019- No Notes: Memoria regular 02-05 (Same as: l 21:39: Humulin R) Roll in palms of hands gently; Do not shake vigorously . WASTE: F/P - Black; E - [place] Trash Bin Stable for 31 days at room temperatur e Expires in days from ____Date Mestinon 2018-0 No Notes: Memoria 02-05 (Same as: l 21:00: Mestinon) Prednisone 2019- No 30 mg, 3 Mem [...] restrepo Injectable 00 Refill(s) Solution [Lantus] Furosemide 2019- Yes 40 mg = 1 Me moria 40 MG Oral 8-12 tab, PO, l Tablet 12:01: BID Jorge Alberto [Lasix] 00 Diuretic, 0 Refill(s) Furosemide 2018- No Notes: Memor ia 40 MG Oral -12 (Same as: l Tablet 11:00: Lasix) Novice [Lasix] 00 May cause GI upset. Give [...] ia 8-07 (Same as: l 16:00: Lasix) MEDICATION WASTE Product Size: 40 mg [...] tab, PO, l tablet 14:29: Daily, X 10 day, # 20 tab, 0 Refill(s), other insulin No 12 unit, Memori a lispro 100 01-01 SUB-Q, l units/mL 14:29: TID-Before Her restrepo injectable 00 Meals, # solution 10 mL, 0 Refill(s), other insulin No 36 unit, Soyori a detemir 100 -03 SUB-Q, l UNT/ML 14:29: BID, # 30 Berto n Injectable 00 mL, 0 Solution Refill(s), [Levemir] other albumin No Notes: Feli human 5% 01-01 LOT#: l intravenous 14:27: Novice solution 00 ___Mfg:___ ___ (Same as: Albuminar) "blood product derivative " WASTE: F/P - Red; E -Red MEDICATION WASTE Product Size: 25 gm Product Wasted: ___ gm Prednisone No Notes: Todd ia 01-01 Take with l 14:00: food. Novice 00 Insulin No 34 unit, Memori a Glargine 01-01 0.34 mL, l 100 UNT/ML 14:00: Route: Gerda nn Injectable 00 SUB-Q, Solution Drug form: [Lantus] SOLN, Daily, Dosing Weight 92, kg, Start date: 01/01/19 9:00:00 CDT, Duration: 30 day, Stop date: 01/30/19 9:00:00 CDT, 0 Insulin No Notes: Feli Lispro 12-31 (Same as: l 12:30: Humalog) Jorge Alberto 00 Roll in palms of hands gently; Do not shake vigorously . WASTE: F/P - Black; E - Municipal Trash Bin Stable for 28 days at room temperatur e. Expires in days from ____Date Insulin No Notes: Soyoria Glargine - (Same as: l 100 UNT/ML 02:00: Lantus) Do H ermann Injectable 00 not hold Solution insulin [Lantus] without contacting prescriber WASTE: F/P - Black; E - Municipal Trash Bin "single patient use only" Stable for 28 days at room temperatur e Expires in days from ____Date Calcium No Notes: Feli Gluconate 12-30 WASTE: F/P l 15:00: - Sink; E Novice 00 - Municipal Trash Bin albumin No Notes: Feli human 5% 12-30 LOT#: l intravenous 14:34: Novice solution 00 ___Mfg:___ ___ (Same as: Albuminar) [...] 12-30 (Same as: l 08:00: Humulin N) Novice Roll in palms of hands gently; Do [...] Notes: Memoria 12-30 Chlorasept l 05:37: ic [place] Novice (Same as: Chlorasept ic, Sore Throat [place]) WASTE: F/P - Black; E - Municipal Trash Bin insulin, No Notes: Memoria isophane 12-30 (Same as: l 00:00: Humulin N) Jorge Alberto 00 Roll in palms of hands gently; Do not shake vigorously . WASTE: F/P - Black; E - Municipal Trash Bin Stable for 31 days at room temperatur e Expires in days from ____Date insulin, No 40 unit, Soyor ia isophane 7-31 Route: l 16:00: SUB-Q, [...] Not Crush) sennosides, No Notes: Kalia aida SKILLED NURSING 8.6 MG 7-31 (Same as: l Oral [...] 25 mL, l 20:14: Route: Jorge Alberto 00 IVP, Drug Form: [...] 12-27 (Same as: l 20:14: Humulin R) Jorge Alberto 00 Roll in palms of hands gently; Do not shake vigorously . WASTE: F/P - Black; E - Municipal Trash Bin Stable for 31 days at room temperatur e Expires in days from ____Date insulin, No Notes: Memoria isophane - (Same as: l 14:44: Humulin N) Novice 00 Roll in palms of hands gently; [...] (Same as: l / Menthol 05:46: Calmosepti rmann 0.0044 00 ne) MG/MG / Petrolatum 0.24 MG/MG / Zinc Oxide 0.206 MG/MG Topical Ointment Famotidine No Notes: Memor ia 12-27 (Same as: l 03:00: Pepcid) Novice 00 Midodrine No Notes: Memori a 12-26 (Same l 22:00: as:Proamat Jorge Alberto 00 ine) albumin No Notes: Memoria human 5% 12-26 LOT#: l intravenous 14:08: Jorge Alberto solution 00 ___ Mfg: WASTE: F/P - Red; E -Red (Same as: Albuminar) "blood product derivative " Midodrine No Notes: Memori a 12-26 (Same l 14:00: as:Proamat Novice 00 ine) azithromyci No Notes: Kalia aida n 500 mg 12-26 Take 1 l oral tablet 14:00: hour Berto n 00 before or 2 hours after meals. (Same As: Zithromax) Calcium No 3 gm, Memoria Gluconate 12-26 Route: IV, l 14:00: Continuous Novice 00 , Dosing Weight 92, kg, Start [...] ine 12-26 for direct l 02:03: administra Novice 00 tion - DILUTE. Protect from light. [...] WASTE: F/P l 16:00: - Sink; E - Municipal Trash Bin albumin No Notes: Memoria human 5% 12-25 LOT#: l intravenous 15:35: Jorge Alberto solution 00 ___Mfg:___ ___ (Same as: Albuminar) "blood product derivative " WASTE: F/P - Red; E -Red MEDICATION WASTE Product Size: 25 gm Product Wasted: ___ gm Prednisone No Notes: Memor ia 7-27 Take with l 14:00: food. Novice Thyroxine No Notes: Memori a 7-27 Take 1 l 11:30: hour before or 2 hours after meal; Enteral feeds may interefere with the absorption of this medication . (Same as:Synthro id) ocular No Notes: Memoria lubricant 12-25 (Same as: l 05:00: Lacri-Lube Novice 00 , Puralube, Duratears Naturale, Artificial Tears, and Tears Again ) Prednisone No 50 mg = 1 Me moria 50 MG Oral 12-25 tab, PO, l Tablet 04:55: Daily, 0 Novice 00 Refill(s) rosuvastati No 20 mg = 1 M emoria n 20 mg 12-25 tab, PO, l oral tablet 04:55: Bedtime, 0 Jorge Alberto 00 Refill(s) ramipril 10 Yes 10 mg = 1 M emoria mg oral 12-25 cap, PO, l capsule 04:55: Daily, 0 Berto n 00 Refill(s) Amlodipine Yes 10 mg, PO, M emoria 12-25 Daily, 0 l 04:55: Refill(s) Jorge Alberto 00 Furosemide No 80 mg, PO, M emoria 12-25 Daily, 0 l 04:55: Refill(s) Potassium Yes 20 mEq, Memor ia Chloride 12-25 PO, Daily, l 04:55: 0 Jorge Alberto 00 Refill(s) Pyridostigm Yes 60 mg, PO, Memoria ine 12-25 Q8H, 0 l 04:55: Refill(s) sertraline Yes 25 mg = 1 Me moria 25 mg oral 12-25 tab, PO, l tablet 04:55: Daily, 0 Jorge Alberto 00 Refill(s) Thyroxine Yes 88 Memoria 12-25 microgram, l 04:55: PO, Daily, Novice 00 0 Refill(s) Alendronic Yes 70 mg = 1 Me moria acid 70 MG - tab, PO, 0 l Oral Tablet 04:55: Refill(s) H ermann [Fosamax] 00 Levemir No SUB-Q, 0 Memori a 12-25 Refill(s) l 04:55: Jorge Alberto 00 Trulicity Yes SUB-Q, 0 Kalia aida Pen 12-25 Refill(s) l 04:55: Novice 00 Famotidine No 20 mg, 2 Mem oria 7-27 mL, Route: l 02:00: IVP, Drug form: INJ, Q12H, Dosing Weight 102.273, kg, Start date: 12/24/18 21:00:00 CDT, Duration: 30 day, Stop date: 01/23/19 9:00:00 CDT, 0 docusate No Notes: Memoria sodium 7-27 (Same as: l 02:00: Colace) sennosides, No Notes: Kalia aida SKILLED NURSING 8.6 MG -27 (Same as: l Oral Tablet 02:00: Senokot) He Ceftriaxone No Notes: Memoria 7-27 MEDICATION l 02:00: WASTE Product Size: 2000 mg Product Wasted: ___ mg Albuterol No Notes: Memori a 0.833 MG/ML -27 (Same as: l / 01:57: Duoneb) Ipratropium 00 [place] 0.167 MG/ML Inhalant Solution [DuoNeb] chlorhexidi No [...] phosphate 7-26 Infuse l 23:37: over 4 Jorge Alberto 00 hour. Do [...] stir. Magnesium No Notes: Memori a Sulfate - WASTE: F/P l 23:37: - Sink; E - Municipal Trash Bin Magnesium No Notes: Memori a Oxide - (Same as: l 23:37: Mag-Ox Novice 00 400) Magnesium oxide [id number] g elemental magnesium Dose=____m g magnesium oxide (___mg elemental magnesium) Calcium No Notes: Memoria Gluconate 12-24 WASTE: F/P l 23:37: - Sink; E Novice - Municipal Trash Bin Calcium No Notes: Memoria Carbonate 12-24 (Same As: l 500 MG 23:37: Tums) Novice Chewable 00 Calcium Tablet Carbonate 500 mg = 200 mg elemental calcium Dose = mg calcium carbonate ( mg elemental calcium) Dextrose No 12.5 gm, Memor ia 50% Syringe 12-24 25 mL, l 23:37: Route: Novice IVP, Drug Form: INJ, Dosing Weight 102.273, [...] in l 23:37: palms of Jorge Alberto 00 hands gently; do not shake vigorously . (Same as: Humulin R) WASTE: F/P - Black; E - Municipal Trash Bin Stable for 31 days at room temperatur e Expires in days from Norepinephr No Notes: Not Memoria ine 12-24 for direct l 23:37: administra Jorge Alberto tion - DILUTE. Protect from light. (Same as:Levophe d). Administer by either central venous catheter or peripheral ly-inserte d central catheter (PICC) line. Isolyte S No Notes: Memori a PH 7.4 7-26 (Same as: l 1,000 mL 23:37: Isolyte S PH 7.4) Ibuprofen No Notes: Memori a 11-29 (Same as: l 14:35: Motrin) "Do Not Crush" Give with food. Tylenol No Notes: Max Kalia aida 11-29 acetaminop l 14:32: hen 4000 Novice 00 mg/day (4 gm/day). (Same as: Tylenol Extra Strength) Pyridostigm Pyridostigm Yes SUUR TAKE 1 [facility] [place] 6-25 BILICILER TABLET BY ity of 62 [...] 14:00: Pepcid) sennosides, No Notes: Kalia aida SKILLED NURSING 8.6 MG 4-24 (Same as: l Oral [...] MG / 14:00: Senokot-S) noside Equiv. to SKILLED NURSING 8.6 MG Cassidy-[place] Oral Tablet e. Levothroid [...] 21:00:00 CDT Sertraline No Notes: Memor ia 24 (Same as: l 00:00: Zoloft) Pyridostigm No [...] of Oral Tablet Oral Tablet 00:00: BEDTIME. [place] [facility] Yes See Daniel a l Therapy 4 Instructio l 16:48: ns, MISC, ONCALL, Evaluate and Treat __3_ times per week for __4__ weeks, # 1 bag, 0 Refill(s) Physical 2018- Yes See [facility] -21 Instructio l 16:48: ns, MISC, 00 ONCALL, Evaluate and Treat _3__ times per week for __4__ weeks, # 1 bag, 0 Refill(s) Ramipril No Notes: Memoria 4-21 (Same l 15:56: as:Altace) Jorge Alberto 00 Furosemide 2019- Yes 20 mg = 1 Me moria 20 MG Oral 4-21 tab, PO, l Tablet 15:44: Every Novice 00 Other Day, # 15 tab, 3 Refill(s) amLODIPine Yes 10 mg = 1 Me moria 10 mg oral 4-21 tab, PO, l tablet 15:44: Daily, # Novice 00 30 tab, 3 Refill(s) predniSONE Yes 60 mg = 3 Me moria 20 mg oral 4-21 tab, PO, l tablet 15:44: Daily, X Novice 00 30 day, # 90 tab, 0 [...] sennosides, Yes 8.6 mg = 1 Memoria SKILLED NURSING 8.6 MG 4-21 tab, PO, l Oral [...] 10/18/18 0:53:00 CDT, 1.99, m2 ramipril 5 2019-0 No 10 mg = 2 Me moria mg oral 4-19 cap, PO, l capsule 23:56: Daily, # Berto n 00 30 cap, 1 Refill(s), Pharmacy: [facility] #[id number] metoprolol 2019-0 No 25 mg = 1 Me moria tartrate 25 4-19 tab, PO, l mg oral 23:56: Q12H, # 60 Herm mercy tablet 00 tab, 1 Refill(s), Pharmacy: [id number] Furosemide 2019-0 No 20 mg = 1 Me moria 20 MG Oral 4-19 tab, PO, l Tablet 23:56: Every Jorge Alberto 00 Other Day, # 30 tab, 1 Refill(s), Pharmacy: [facility] #[id number] amLODIPine 2019-0 No 10 mg = 1 Me moria 10 mg oral 4-19 tab, PO, l tablet 23:56: Daily, # Novice 00 30 tab, 1 Refill(s), Pharmacy: [facility] #[id number] sertraline 2019-0 No 25 mg = 1 Me moria 25 mg oral 4-19 tab, PO, l tablet 23:56: Q24H, # 30 Gerda nn 00 tab, 1 Refill(s), Pharmacy: [facility] #[id number] sennosides, 2019-0 No 8.6 mg = 1 Memoria SKILLED NURSING 8.6 MG 4-19 tab, PO, l Oral Tablet 23:56: BID, # 60 H ermann 00 tab, 0 Refill(s), Pharmacy: [facility] #[id number] pyridostigm 2018-0 No 60 mg = 1 M emoria ine 60 mg 4-19 tab, PO, l oral tablet 23:56: Q8Hnow, # H ermann 00 90 tab, 1 Refill(s), Pharmacy: [facility] #[id number] predniSONE 2019-0 No 60 mg = 3 Me moria 20 mg oral 4-19 tab, PO, l tablet 23:56: Daily, # Jorge Alberto 00 30 tab, 1 Refill(s), Pharmacy: [facility] #[id number] Insulin 2018-0 No Notes: Memoria regular 09-17 (Same as: l 23:52: Humulin R) Novice 00 Roll in palms of hands gently; Do not shake vigorously . WASTE: F/P - Black; E - Freezing [place] Trash Bin Stable for 31 days at room temperatur e Expires in days from ____Date Glucagon 2018-0 No 1 mg, Memoria 09-17 Route: IM, l 23:52: Drug form: Novice 00 PDR/INJ, PRN, Dosing Weight 91.378, kg, [...] 4-18 (Same as: l 05:00: Humulin N) Novice 00 Roll in palms of hands gently; Do not shake vigorously . WASTE: F/P - Black; E - Municipal Trash Bin Stable for 31 days at room temperatur e Expires in days from ____Date Insulin No Notes: Memoria regular 4-18 (Same as: l 01:34: Humulin R) Novice 00 Roll in palms of hands gently; Do not shake vigorously . WASTE: F/P - Black; E - Municipal Trash Bin Stable for 31 days at room temperatur e Expires in days from ____Date Miralax No Notes: Memoria 4-17 Dissolve l 14:00: in 8 oz of Novice 00 water or juice. (Same as: Miralax) lansoprazol No Notes: Kalia aida e 4-17 Take 1 l 14:00: hour Jorge Alberto 00 before or 2 hours after meal; Expires in 14 days. Shake well before use. (Same as:Prevaci d) Compound ed Product - formulatio n not commercial ly available* * insulin, No Notes: Memoria isophane 4-17 (Same as: l 05:00: Humulin N) Novice 00 Roll in palms of hands gently; Do not shake vigorously . WASTE: F/P - Black; E - Municipal Trash Bin Stable for 31 days at room temperatur e Expires in days from ____Date Saline No Notes: Memoria Flush 0.9% -17 (Same as: l 02:00: BD Novice 00 Posiflush) Lasix No Notes: Memoria 4-17 (Same as: l 02:00: Lasix) Novice 00 MEDICATION WASTE Product Size: 40 mg Product Wasted: ___ mg docusate No Notes: Memoria sodium 100 4-16 (Same as: l mg oral 22:00: Colace) Jorge Alberto capsule 00 (Do Not Crush) sennosides, No Notes: Kalia aida SKILLED NURSING 4-16 (Same as: l 22:00: Senokot) Novice 00 insulin, No Notes: Memoria isophane 4-16 (Same as: l 21:22: Humulin N) Novice 00 Roll in palms of hands gently; Do not shake vigorously . WASTE: F/P - Black; E - Municipal Trash Bin Stable for 31 days at room temperatur e Expires in days from ____Date Insulin No Notes: Memoria regular 4-16 (Same as: l 21:20: Humulin R) Jorge Alberto 00 Roll in [...] day, Stop date: 10/14/18 16:19:00 CDT Dextrose 2019- No 12.5 gm, Memor ia 50% Syringe 4-16 25 mL, l 21:20: Route: IVP, Drug Form: INJ, Dosing Weight 91.378, kg, PRN, PRN Blood Glucose Results, Start date: 09/14/18 16:20:00 CDT, Duration: 30 day, Stop date: 10/14/18 16:19:00 CDT Saline 2018- No Notes: Memoria Flush 0.9% -16 (Same as: l 16:01: BD Posiflush) Nystatin [...] as: l / 12:48: Duoneb) Ipratropium 00 Gowen 0.167 MG/ML Inhalant Solution [DuoNeb] Potassium No [...] F/P l empty 20:00: - Red; E Novice container 1 00 -Red Lot bag # [...] ia 4-15 Take with l 14:00: food. Jorge Alberto 00 pantoprazol No Notes: For Memoria e 4-15 IV push l 14:00: reconstitu Jorge Alberto te with 10 ml 0.9% sodium chloride and push over 2 minutes. (Same as: Protonix) chlorhexidi No Notes: Kalia aida ne 4-15 (Same As: l gluconate 14:00: Peridex) Herm mercy 1.2 MG/ML 00 Mouthwash Norepinephr No Notes: Not Memoria ine 4-15 for direct l 11:04: administra Novice 00 tion - DILUTE. Protect from light. [...] being intubated (unless the nurse is a YOUTH SPECIALIST). Same as: Diprivan Rocuronium No Notes: Memor ia 4-15 (Same as: l 11:01: Zemeron) Jorge Alberto Fentanyl No Notes: Memoria 4-15 (Same as: l 11:01: Sublimaze) Novice Preservat kimberly free. Propofol No Notes: If Kalia aida 4-15 Diprivan - l 11:01: change Novice bottle & tubing every 12 hr Per state nursing law propofol can only be given by a nurse if patient is intubated or being intubated (unless the nurse is a YOUTH SPECIALIST). Same as: Diprivan ocular No Notes: [...] Syringe 4-15 12.5 mL, l 06:52: Route: Novice 00 IVP, Drug Form: INJ, Dosing Weight [...] to soy, fish, egg or peanuts. Immunoglobu 2019- No 50 gm, Kalia aida lawanda G 4-15 Route: IV, l 02:00: Q24H, Novice 00 Dosing Weight 91.378, kg, Start date: 09/12/18 21:00:00 CDT, Duration: 1 day, Stop date: 09/12/18 21:00:00 CDT, Indication : Myasthenia gravis Gamunex-C No Route: Memori a 75 gm + 4-15 IVPB, Drug l empty 02:00: form: Novice container 1 00 SOLN, bag Bedtime, Start [...] ine 4-15 (Same as: l 00:09: Mestinon) Novice 00 Calcium No Notes: Memoria Carbonate 4-14 (Same As: l 500 MG 21:44: Tums) Jorge Alberto Chewable 00 Calcium Tablet Carbonate 500 mg = 200 mg elemental calcium Dose = mg calcium carbonate ( mg elemental calcium) Calcium No Notes: Memoria Gluconate 4-14 WASTE: F/P l 21:44: - Sink; E Novice - Municipal Trash Bin Magnesium No Notes: Memori a Oxide 4-14 (Same as: l 21:44: Mag-Ox Jorge Alberto 00 400) Magnesium oxide 866ye=236u g elemental magnesium Dose=____m g magnesium oxide (___mg elemental magnesium) Magnesium No Notes: Memori a Sulfate - WASTE: F/P l 21:44: - Sink; E Jorge Alberto 00 - Municipal Trash Bin potassium No Notes: Memori a phosphate-s -14 (Same as: l odium 21:44: K-Phos Novice phosphate 00 Neutral, 250 mg-280 Phospha mg-160 mg 250 oral powder Neutral) for reconstitut ion Potassium No Notes: Memori a Chloride - (Same as: l 21:44: K-Dur 20) "Do Not Crush" Give with food and full glass of water For patients unable to swallow tablet, dissolve in one half glass of water. Allow about 2 minutes for the tablets to disintegra te. Stir before giving to prepare slurry and administer . Please exclude Patient s with feeding tube less than 14 Persian (Dobhoff, J-tube etc) and pediatric and patients. [...] benzocaine No Notes: Memor ia topical gel 09-12 (Same As: l 21:38: Maximum Novice 00 Strength PM Orajel ) Immunoglobu No [...] thiazide 4-13 (Same as: l 14:00: Hydrodiuri l) With food. Docusate No Notes: Memoria Sodium 50 4-13 (Same as l MG / 14:00: Senokot-S) Jorge Alberto sennosides, 00 Equiv. to SKILLED NURSING 8.6 MG Cassidy-Colac Oral Tablet e. Furosemide [...] ia 4-12 (Same as: l 22:00: Lacri-Lube 00 , Puralube, Duratears Naturale, Artificial Tears, and Tears Again ) Pyridostigm No Notes: Kalia aida ine 4-12 (Same as: l 22:00: Mestinon) Saline No Notes: Memoria Flush 0.9% 4-12 (Same as: l 21:47: BD Posiflush) Benadryl No Notes: Memoria 4-12 (Same as: l 21:47: Benadryl) Solu-Medrol No Notes: Kalia aida 4-12 (Same l 21:47: as:Solu-ME Jorge Alberto 00 DROL, A-Methapre d) Zofran No Notes: Memoria 4-12 (Same as: l 21:44: Zofran) MEDICATION WASTE Product Size: 4 mg Product Wasted: ___ mg Immunoglobu 2018- No 36 gm, Kalia aida webber G 4-12 Route: l 21:42: IVPB, Drug form: SOLN, Daily, Dosing Weight 91.378, kg, Start date: 09/10/18 16:42:00 CDT, Duration: 5 day, Stop date: 09/15/18 9:00:00 CDT, Indication : Other see comments Insulin 2018- No 60 Memoria regular 4-12 units) l [...] day, Stop date: 10/10/18 8:16:00 CDT Dextrose 2018- No 12.5 gm, Memor ia 50% Syringe -12 25 mL, l 13:17: Route: IVP, Drug Form: INJ, Dosing Weight 91.378, kg, PRN, PRN Blood Glucose Results, Start date: 09/10/18 8:17:00 CDT, Duration: 30 day, Stop date: 10/10/18 8:16:00 CDT Saline 2018-0 No Notes: Memoria Flush 0.9% 4-12 (Same as: l 05:20: BD Posiflush) Dextrose 5% 2019- No 1,000 mL, Natasha duvallribobby with 0.9% 4-12 Rate: 75 l NaCl IV 05:20: ml/hr, Novice 1,000 mL 00 Infuse over: 13.3 hr, Route: IV, Dosing Weight 91.378 kg, Total Volume: 1,000, Start date: 09/10/18 0:20:00 CDT, Duration: 30 day, Stop date: 10/10/18 0:19:00 CDT, 1.99, m2 Streptococc No Notes: Kalia aida us 4-12 Shake well l pneumoniae 05:11: prior to Her restrepo serotype 1 25 use (Same capsular as: antigen Prevnar diphtheria 13) [id number] protein conjugate vaccine / Streptococc us pneumoniae serotype 14 capsular antigen diphtheria [id number] protein conjugate vaccine / Streptococc us pneumoniae serotype 18C capsular antigen d insulin No Notes: Memoria glargine 4-12 (Same as: l 03:00: Lantus) Do Jorge Alberto 00 not hold insulin without contacting prescriber [...] mL 09-09 Rate: 75 l 12:53: ml/hr, Jorge Alberto 00 Infuse over: 13.3 hr, Route: IV, Dosing Weight 94.3 kg, Total Volume: 1,000, Start date: 09/09/18 7:53:00 CDT, Duration: 30 day, Stop date: 10/09/18 7:52:00 CDT, 2.02, m2 Acyclovir No Notes: Me moria 4-11 MEDICATION l 01:00: WASTE Novice Product Size: 500 mg Product Wasted: _0__ mg 0.5 ML 2019- Yes SUB-Q, Memoria dulaglutide 4-10 every l 3 MG/ML 23:50: Thursday, 0 Gerda nn Prefilled 00 Refill(s) Syringe [Trulicity] Insulin Yes 20 unit, Memori a Glargine 4-10 SUB-Q, l 100 UNT/ML 23:50: Bedtime, # H ermann Injectable 00 3 mL, 3 Solution Refill(s) heparin 2018-0 No Notes: Memoria 4-10 porcine l 21:00: heparin Novice 00 Dextrose 2019-0 No 12.5 gm, Memor ia 50% Syringe 4-10 25 mL, l 14:49: Route: Novice 00 IVP, Drug Form: INJ, Dosing Weight 94.3, kg, PRN, PRN Blood Glucose Results, Start date: 09/08/18 9:49:00 CDT, Duration: 30 day, Stop date: 10/08/18 9:48:00 CDT Glucagon 2018- No 1 mg, Memoria 4-10 Route: IM, l 14:49: Drug form: Novice PDR/INJ, PRN, Dosing Weight 94.3, kg, PRN Blood Glucose Results, Start date: 09/08/18 9:49:00 CDT, Duration: 30 day, Stop date: 10/08/18 9:48:00 CDT Furosemide 2018- No Notes: Memor ia 20 MG Oral [...] Alberto 00 90 tab, 3 Refill(s), Pharmacy: [facility] [id number] rosuvastati 2018- Yes 20 mg = 2 M emoria n 10 mg 3-22 tab, PO, l oral tablet 00:09: Bedtime, # Jorge Alberto 00 180 tab, 3 Refill(s) ramipril 5 2018-0 Yes 10 mg = 2 Me moria mg oral 3-22 cap, PO, l capsule 00:09: Q24H, # Novice 00 180 cap, 3 Refill(s) Insulin 2018- Yes 20 unit, Memori a Glargine 3-22 SUB-Q, l 100 UNT/ML 00:09: QPM, # 15 He rmann Injectable 00 mL, 3 Solution Refill(s) Furosemide Yes 20 mg = 1 Me moria 20 MG Oral 3-22 tab, PO, l Tablet 00:09: Every Jorge Alberto 00 Other Day, # 15 tab, 0 Refill(s) amLODIPine 2019 Yes 5 mg = 1 Mem oria [...] Omnipaque No 150 ml, Memor ia 350 3-21 Route: l 13:49: INTRAARTER IAL, Dosing Weight [...] 02:00: Crestor) insulin No Notes: Memoria glargine - Same as: l 22:00: Lantus) Do not hold insulin without contacting prescriber WASTE: F/P - Black; E - Municipal Trash Bin Ramipril No Notes: Memoria 3-19 (Same l 20:30: as:Altace) Amlodipine No Notes: Memor ia 08-17 (Same as: l 20:30: Norvasc) loperamide No Notes: Memor ia - Same as l 19:48: Imodium Imodium A-D No 2 mg, Memor ia EZ Chews 08-17 Route: l 18:34: CHEW, Dosing Weight 111.6, kg, BID, PRN as needed for loose stool, Start date: 08/17/18 13:34:00 CDT, Duration: 30 day, Stop date: 09/16/18 13:33:00 CDT Plavix No Notes: Memoria -19 (Same As: l 17:24: Plavix) benzonatate No Notes: Kalia aida - (Same As: l 17:18: Tessalon Perles) "Do Not Crush" Insulin No 60 Memoria regular 3-19 units) l 14:05: WASTE: F/P Novice - Black; E - Municipal Trash Bin [...] 3-19 25 mL, l Water 07:18: Route: Novice (bolus) IV 00 IVP, Drug Form: INJ, [...] mL, Route: l 23:14: Hernán IV, Drug Novice 00 form: INJ, Q4H, PRN Elevated BP, [...] Duration: 30 day, Stop date: 04/22/11 17:00:00 [place] 2010-06 No Allen 120 mg, 2 Memor [...] Duration: 30 day, Stop date: 04/22/11 7:36:00 [place] 2010-06 No Allen 120 mg, Memoria Thyroid [...] Duration: 30 day, Stop date: 04/21/11 9:00:00 [place] 5/325 2010-06 No Allen 1 tab, Mem [...] ea, Route: l 22:00: Hernán PO, Drug Novice 00 form: TAB, BID, Start date: 03/22/11 [...] Angelito 0.03 mL, l 21:28: Hernán Route: Novice 00 SUB-Q, Drug form: SOLN, TID-Before Meals, [...] oral 0-15 Prince tab, l tablet 02:00: imil Route: PO, Drug form: TAB, Bedtime, Start [...] tab, l tablet 14:00: [place] Route: PO, Drug Form: TAB, Daily, Start [...] 2 Memoria 0-14 Jeane tab, l 14:00: [place] Route: PO, Her restrepo 00 Drug form: TAB, Daily, Start date: 03/14/11 9:00:00, Duration: 30 day, Stop date: 04/12/11 9:00:00 Keppra 500 2010-06 No Darcy 500 mg, 1 Memoria mg oral 0-14 Jeane tab, l tablet 14:00: [place] Route: PO, H ermann 00 Drug form: TAB, Q12H, Start date: 03/14/11 9:00:00, Duration: 30 day, Stop date: 04/12/11 21:00:00 Novolin N 2010-06 No Darcy 10 unit, Memoria 0-14 Jeane 0.1 mL, l 14:00: Ash Route: Novice 00 SUB-Q, Drug form: INJ, BID, Start date: 03/14/11 9:00:00, Duration: 30 day, Stop date: 04/12/11 17:00:00 docusate 2010-06 No Darcy 100 mg, 1 Memoria sodium 100 0-14 Jeane cap, l mg oral 14:00: [place] Route: PO, Novice capsule 00 Drug form: CAP, BID, Start [...] oria 0-14 Jeane unit, 1 l 13:00: [place] mL, Route: Her restrepo 00 SUB-Q, Drug form: INJ, Q8H, Start date: 03/14/11 8:00:00, Duration: 30 day, Stop date: 04/13/11 0:00:00 ciprofloxac 2010-06 No Darcy 750 mg, 3 Memoria in 0-14 Jeane tab, l 12:00: [place] Route: PO, Her restrepo 00 Drug form: TAB, [id number], Start date: 03/14/11 7:00:00, Duration: 30 day, Stop date: 04/12/11 19:00:00 cefepime 2010-06 No Darcy 2 gm, Me moria 0-14 Jeane Route: IV, l 12:00: Ash Drug form: Her restrepo 00 INJ, [id number], Start date: 03/14/11 7:00:00, Duration: 30 day, Stop date: 04/12/11 23:00:00 [place] 2010-06 No Darcy 120 mg, 2 Memoria Thyroid 0-14 Jeane tab, l 11:45: Ash Route: PO, Her restrepo 00 Drug form: TAB, [id number], Start date: 03/14/11 6:45:00, Duration: 30 day, Stop date: 04/13/11 6:30:00 glucagon 2010-06 No Darcy 1 mg, Me moria 0-14 Jeane Route: IM, l 11:06: [place] Drug form: Her restrepo 00 PDR/INJ, PRN, [...] Duration: 30 day, Stop date: 04/13/11 6:05:00 [place] 5/325 2010-06 No Darcy 1 tab, Memoria oral tablet 0-14 Jeane Route: PO, l 11:02: Ash Drug Form: Her restrepo 00 TAB, Q4H, PRN as needed for pain, Start date: 03/14/11 6:02:00, Duration: 30 day, Stop date: 04/13/11 6:01:00 magnesium 2010-06 No Darcy 2 gm, 50 Memoria sulfate 0-14 Jeane mL, Route: l 11:01: [place] IVPB, Drug Her restrepo 00 form: INJ, ONCE, Total dose = 2 gm, Start date: 03/14/11 6:01:00, Duration: 1 doses or times, Stop date: 03/14/11 6:01:00 Sodium 2010-06 No Natana 1,000 mL, Kalia aida Chloride 0-14 Farmer Rate: l 0.9% 09:12: Burden 1,000 Novice (Bolus) IV 00 ml/hr, 1,000 mL Infuse [...] Farmer Rate: l 0.9% 04:20: Burden 1,000 Novice (Bolus) IV 00 ml/hr, 1,000 mL Infuse [...] Me moria 0-14 on Allowed l 03:35: Novice 03 metoprolol 2010-06 No Val 12.5 mg, 1 Memoria 0-07 Caitie ea, Route: l 01:00: Aaron PO, Drug Novice 00 form: TAB, BID, Start date: 03/06/11 20:00:00, Duration: 30 day, Stop date: 04/05/11 8:00:00 metoprolol 2010-06 Yes McCasey R 12.5 mg, Memoria 25 mg oral 0-06 Rizvi 0.5 ea, l tablet 20:26: PO, BID, Jorge Alberto 19 60 tab, Substituti on Allowed, TAB trazodone 2010-06 Yes [place]asey R 50 mg, 1 Memoria 50 mg oral 0-06 Rizvi tab, PO, l tablet 20:24: Bedtime, Novice 01 40 tab, Substituti on Allowed, TAB [place] 5/325 2010-06 Yes McCasey R 1 tab, PO, Memoria oral tablet 0-06 Rizvi Q4H, PRN, l 20:23: 40 tab, Jorge Alberto 43 Pain, Substituti on Allowed, Maintenanc e, TAB Novolin N 2010-06 Yes McCasey R 10 unit, Memoria 100 0-06 Rizvi SUB-Q, l units/mL 20:23: BID, 10 Berto n subcutaneou 30 ml, s injection Substituti on Allowed, SUSP [place] 2010-06 Yes McCasey R 120 mg, 2 M emoria Thyroid 60 0-06 Rizvi tab, PO, l mg oral 20:23: Before Novice tablet 07 Breakfast, 60 tab, Substituti on Allowed, TAB Keppra 500 2010-06 Yes McCasey R 500 mg, 1 Memoria mg oral 0-06 Rizvi tab, PO, l tablet 20:22: Q12H, 60 Jorge Alberto 39 tab, Substituti on Allowed, TAB Crestor [...] Rizvi Q8H, 60 l 20:19: doses or Novice 42 times, Substituti on Allowed calcium 2010-06 Yes McCasey R 500 mg, 1 Memoria carbonate 0-06 Rizvi tab, PO, l 500 mg oral 20:19: TID, PRN, H ermann tablet, 13 30 tab, as chewable needed for indigestio n, Substituti on Allowed, CHEWTAB Lasix 2011-1 No Val 10 mg, 0.5 Kalia aida 0 Caitie tab, l 13:00: Aaron Route: PO, Gerda nn Drug form: TAB, Daily, Start date: 03/06/11 8:00:00, Duration: 30 day, Stop date: 04/04/11 8:00:00 Norvasc 2010- No Chaitanya A 5 mg, Memor ia Crowe Route: PO, l 13:00: Daily, Novice Start date: 03/02/11 8:00:00, Duration: 30 day, [...] date: 02/27/11 8:00:00, Stop date: 03/28/11 8:00:00 [place] No Bonnie Jyotsna 120 mg, 2 Memoria Thyroid 02-27 Zeider tab, l 11:30: Route: PO, Jorge Alberto 00 Drug form: TAB, Before Breakfast, Start date: 02/27/11 6:30:00, Duration: 30 day, Stop date: 03/28/11 6:30:00 Insulin 2010- No Chaitanya A 5 unit, Mem oria regular 02-27 Crowe 0.05 mL, l 11:30: Route: Jorge Alberto 00 SUB-Q, Drug [...] 30 day, Stop date: 03/28/11 11:00:00 Crestor 0 No Bonnie Jyotsna 20 mg, 2 Memoria [...] tab, l 01:00: Route: PO, Jorge Alberto 00 Drug form: TAB, BID, Start date: 02/26/11 20:00:00, Duration: 5 day, Stop date: 03/03/11 8:00:00 insulin No Bonnie Jyotsna 10 unit, Memoria isophane-SPRING BENDER 02-27 Zeider 0.1 mL, l H 01:00: [...] 02-27 Crowe tab, l 01:00: Route: PO, Novice Drug form: TAB, BID, Start date: 02/26/11 20:00:00, Stop date: 03/28/11 8:00:00 cefepime No Bonnie Jyotsna 2 gm, Me moria 02-26 Zeider Route: l 23:00: IVPB, Drug Jorge Alberto form: INJ, [id number], Start date: 02/26/11 18:00:00, Duration: 30 day, Stop date: 03/28/11 10:00:00 ondansetron No Bonnie Jyotsna 4 mg, 2 Memoria 02-26 Zeider mL, Route: l 22:39: IVP, Drug Novice 00 form: INJ, ONCE, PRN Nausea & Vomiting, Start date: 02/26/11 17:39:00 Saline No Bonnie Jyotsna 5 ml, Kalia aida Flush 0.9% 02-26 Zeider Route: l 22:39: IVP, Drug Jorge Alberto 00 Form: INJ, PRN, PRN Line Flush, Start date: 02/26/11 17:39:00, Duration: 30 day, Stop date: 03/28/11 17:38:00 calcium No Bonnie Jyotsna 500 mg, 1 Memoria carbonate 02-26 Zeider tab, l 22:39: Route: Novice 00 CHEW, Drug form: CHEWTAB, TID, PRN Indigestio n, Start date: 02/26/11 17:39:00, Duration: 30 day, Stop date: 03/28/11 17:38:00 [place] 5/325 No Bonnie Jyotsna 1 tab, Memoria oral tablet 02-26 Zeider Route: PO, l 22:39: Drug Form: Jorge Alberto 00 TAB, Q4H, PRN Pain, Start date: 02/26/11 17:39:00, Duration: 30 day, Stop date: 03/28/11 17:38:00 acetaminoph No Bonnie Jyotsna 650 mg, Memoria en 02-26 Zeider 20.3 mL, l 22:39: Route: PO, Jorge Alberto 00 Drug form: LIQ, Q4H, PRN Fever, Start date: 02/26/11 17:39:00, Duration: 30 day, Stop date: 03/28/11 17:38:00 [place] No Bonnie Jyotsna 1 tab, Kalia aida 7.5/325 02-26 Zeider Route: PO, l oral tablet 22:39: Drug Form: Novice 00 TAB, Q4H, PRN Pain, Start date: 02/26/11 17:39:00, Duration: 30 day, Stop date: 03/28/11 17:38:00 Insulin No Bonnie Jyotsna 2 unit, M emoria regular 02-26 Zeider 0.02 mL, l 22:39: Route: Novice 00 SUB-Q, Drug form: SOLN, TID-Before Meals, PRN Blood Glucose Results, Start date: 02/26/11 17:39:00, Duration: 30 day, Stop date: 03/28/11 17:38:00 [place] Yes Katie L 120 mg, 2 M emoria Thyroid 60 02-26 Christianson tab, PO, l mg oral 18:40: Before Novice tablet 33 Breakfast, 30 tab, Substituti on [...] tab, PO, l tablet 18:40: Q8H, 30 Novice 03 tab, Substituti on Allowed, TAB heparin Yes Katie L 5000 Memor ia 5000 02-26 Christianson units, l units/mL 18:39: SUB-Q, Novice injectable 57 Q8H, 30 solution doses or times, Substituti on Allowed, SOLN Lasix 40 mg Yes Katie L 40 mg, 1 Memoria oral tablet 02-26 Christianson tab, PO, l 18:39: Daily, 30 Jorge Alberto 49 tab, Substituti on Allowed, TAB docusate Yes Katie L 100 mg, 1 Memoria sodium 100 02-26 Christianson cap, PO, l mg oral 18:39: BID, 30 Novice capsule 39 cap, Substituti on Allowed, CAP [...] Skyler 133 ml, Memoria 02-24 Dean Route: UT, l 19:38: Joel Drug Form: Herm mercy 00 JEANNIE, ONCE, Start date: 02/24/11 14:38:00, Stop date: 02/24/11 14:38:00 bisacodyl No Skyler 10 mg, 1 M emoria 02-24 Dean supp, l 19:38: Joel Route: UT, Nikolas law 00 Drug form: SUPP, ONCE, Start date: 02/24/11 14:38:00, Stop date: 02/24/11 14:38:00 magnesium No Magnolia 300 ml, Mem oria citrate 02-24 Manuel Route: PO, l 18:03: Aicha Drug Form: Herm mercy 00 LIQ, ONCE, Start date: 02/24/11 13:03:00, Stop date: 02/24/11 13:03:00 calcium No Val 500 mg, 1 Mem oria carbonate 02-24 tab, l 18:00: Aaron Route: POGerda nn Drug form: TAB, TID, Start date: 02/24/11 13:00:00, Duration: 7 day, Stop date: 03/03/11 9:00:00 lisinopril No Val 10 mg, 1 M emoria 02-24 Caitie tab, l 16:02: Aaron Route: PONikolasa nn 00 Drug form: TAB, ONCE, Priority: NOW, Start date: 02/24/11 11:02:00, Stop date: 02/24/11 11:02:00 lisinopril No Val 10 mg, Mem oria 9-26 Caitie Route: PO, l 16:01: Aaron ONCE, Jorge Alberto Start date: 02/24/11 11:01:00, Stop date: 02/24/11 11:01:00 Insulin No Val 3 unit, Memor ia regular 02-23 0.03 mL, l 21:30: Aaron Route: Novice SUB-Q, Drug form: SOLN, TID-Before Meals, Start date: 02/23/11 16:30:00, Duration: 30 day, Stop date: 03/25/11 11:30:00 ciprofloxac No Val 750 mg, 3 Memoria in 02-23 tab, l 18:00: Aaron Route: PO, Gerda nn Drug form: TAB, Q12H, Priority: Routine, Start date: 02/23/11 13:00:00, Duration: 30 day, Stop date: 03/25/11 11:00:00 insulin No Val 10 unit, Kalia aida isophane-SPRING BENDER 02-21 0.1 mL, l H 22:00: Aaron [...] carbonate 02-21 tab, l 19:26: Aaron Route: CHEW, Drug form: CHEWTAB, TID, PRN [...] Duration: 30 day, Stop date: 03/22/11 8:00:00 [place] No Claudy 1 tab, Memoria 7.5/325 02-20 Salazar Route: PO, l oral tablet 16:07: Drug Form: Novice 00 TAB, Q4H, PRN Pain, Start date: [...] Duration: 30 day, Stop date: 03/21/11 9:00:00 [place] 2010-0 No Albaro 120 mg, 2 Kalia aida [...] 02-20 Day 100 mL, l 09:00: Route: Novice 00 IVPB, Q2H, Start date: 02/20/11 4:00:00, Duration: 2 doses or times, Stop date: 02/20/11 6:00:00 magnesium No Ramos L 4 gm, 100 Memoria sulfate 02-20 Day mL, Route: l 09:00: IVPB, Drug form: INJ, ONCE, Start date: 02/20/11 4:00:00, Stop date: 02/20/11 4:00:00 labetalol No Ambili M 5 mg, 1 M emoria 02-20 Kasi mL, Route: l 06:56: IV, Drug Jorge Alberto 00 form: INJ, Q10Min, PRN Hypertensi on, [...] 02-20 Salazar tab, l 02:13: Route: PO, Novice Drug form: TAB, Q4H, PRN Fever, Start date: 02/19/11 21:13:00, Duration: 30 day, Stop date: 03/21/11 21:12:00 levetiracet No Albaro 500 mg, 1 Memoria am 02-20 Edmarco tab, l 02:00: Christopher Route: PO, Berto n Drug form: TAB, Q12H, Start date: 02/19/11 21:00:00, Duration: 30 day, Stop date: 03/21/11 9:00:00 acetaminoph No Ambili M 650 mg, Memoria en 02-20 Kasi 20.3 mL, l 01:04: Route: PO, Jorge Alberto 00 Drug form: LIQ, Q4H, PRN Fever, Start date: 02/19/11 20:04:00, Duration: 30 day, Stop date: 03/21/11 20:03:00 [place] 2010- No Val 10 mg, 1 Mem oria [...] Duration: 30 day, Stop date: 03/21/11 9:00:00 [place] 5/325 No Albaro 1 tab, Me moria oral tablet 02-19 Dav Route: PO, l 21:14: Christopher Drug Form: Berto n 00 TAB, Q4H, PRN Pain, Start date: 02/19/11 16:14:00, Duration: 30 day, Stop date: 03/21/11 16:13:00 ciprofloxac No Laure Thi 400 mg, Memoria in 02-19 Sahu 200 mL, l 21:10: Route: Jorge Alberto 00 IVPB, Drug form: INJ, [id number], Priority: NOW, Start date: 02/19/11 16:10:00, Duration: [...] Rate: 75 l 0.9% IV 20:56: ml/hr, Novice 1,000 mL 00 Infuse over: 13.3 hr, [...] Demarco 12.5 mL, l 20:51: White Route: IVP, Drug Form: INJ, PRN, PRN [...] Carlos 0.1 mL, l 19:18: Herman Route: IVP, Drug form: INJ, Q2MIN, PRN Narcotic Reversal, Start date: 02/19/11 14:18:00, Duration: 8 doses or times, Stop date: 02/20/11 14:18:00 hydromorpho No Claudy 0.3 mg, Me moria ne 02-19 Salazar 0.15 mL, l 19:18: Route: Novice 00 IVP, Drug form: INJ, Q5Min, PRN [...] Ollie Rizvi Route: l 19:00: IVPB, Drug Novice form: INJ, [id number], Start date: 02/19/11 14:00:00, Duration: 30 day, Stop date: 03/21/11 2:00:00 ondansetron Yes Bonnie Jyotsna 4 mg, 2 Memoria 2 mg/mL 9-20 Zeider mL, IVP, l injectable 21:12: Q8H, PRN, He rmann solution 09 30 mL, Nausea & Vomiting, Substituti on Allowed, SOLN Milk of Yes Bonnie Jyotsna 1.2 gm, 5 Memoria Magnesia 9-20 Zeider mL, PO, l 24% oral 21:12: Daily, Novice concentrate 02 PRN, 150 mL, Constipati on, [...] 1 Memoria 10 mg 9-20 Zeider supp, UT, l rectal 21:08: Bedtime, Jorge Alberto suppository 53 PRN, 30 supp, Constipati on, Substituti on Allowed, SUPP [place] 5/325 Yes Bonnie Jyotsna 1 tab, PO, Memoria oral tablet 9-20 Zeider Q4H, PRN, l 21:08: 30 tab, as Novice 50 needed for pain, Substituti on Allowed, Maintenanc e, TAB [place] Yes Bonnie Jyotsna 120 mg, 1 Memoria [...] L 1,000 mL, M emoria saline 0.9% -20 Christianson Rate: 100 l IV 1,000 mL 16:29: ml/hr, [facility] 00 Infuse over: 10 hr, Route: IV, Total Volume: 1,000, Start date: 02/18/11 11:29:00, Duration: 30 day, Stop date: 03/20/11 11:28:00 potassium No 25 mEq, Memor ia bicarbonate 9-15 Substituti l 25 mEq oral 23:15: on [...] 1,000 mL 02-11 Dean Rate: l 13:37: oJel 1,000 Novice 00 ml/hr, Infuse over: 1 hr, Route: IV, Total Volume: 1,000, Priority: STAT, Start date: 02/11/11 8:37:00, Duration: 1 doses or times, Stop date: 02/11/11 9:36:00, Bolus DoseBolus Dose dexamethaso No Bonnie Jyotsna 1 mg, 1 Memoria ne 02-11 Zeider tab, l 13:00: Route: PO, Jorge Alberto 00 Drug form: TAB, Daily, Start date: 02/11/11 8:00:00, Duration: 2 day, Stop date: 02/12/11 8:00:00 Fleet Enema No Skyler 133 ml, Memoria 02-10 Dean Route: UT, l 19:15: Joel Drug Form: [facility] 00 JEANNIE, ONCE, Start date: 02/10/11 14:15:00, Stop date: 02/10/11 14:15:00 bisacodyl No Skyler 10 mg, 1 M emoria 02-10 Dean supp, l 19:15: Joel Route: UT, [facility] Drug form: SUPP, ONCE, Start date: 02/10/11 14:15:00, Stop date: 02/10/11 14:15:00 dexamethaso No Bonnie Jyotsna 1 mg, 1 Memoria ne 02-09 Zeider tab, l 13:00: Route: PO, Novice Drug form: TAB, BID, Start date: 02/09/11 8:00:00, Duration: 2 day, Stop date: 02/10/11 20:00:00 Xylocaine No Lam M 1 appl, Ca moria Jelly 2% 02-08 Allam Route: l topical gel 21:04: TOP, Q6H, H ermann with 00 Drug form: applicator GEL PRN Pain, Start date: 02/08/11 16:04:00, Duration: 30 day, Stop date: 03/10/11 16:03:00 dexamethaso No Meilani H 1 mg, 1 Memoria ne 02-07 [place] tab, l 13:00: Route: PO, Novice 00 Drug form: TAB, TID, Start date: 02/07/11 8:00:00, Duration: 2 day, Stop date: 02/08/11 17:00:00 Prinivil No Bonnie Jyotsna 10 mg, 1 Memoria 02-06 Zeider tab, l 22:00: Route: PO, Novice 00 Drug form: TAB, QPM, Start date: 02/06/11 17:00:00, Duration: 30 day, Stop date: 03/07/11 17:00:00 dexamethaso No Meilani H 2 mg, 1 Memoria ne 02-05 [place] tab, l 13:00: Route: PO, Novice Drug form: TAB, TID, Start date: 02/05/11 8:00:00, Duration: 2 day, Stop date: 02/06/11 17:00:00 lisinopril 2010-0 No Bonnie Jyotsna 10 mg, 1 Memoria 02-04 Zeider tab, l 13:00: Route: PO, Novice 00 Drug form: TAB, QPM, Start date: 02/04/11 8:00:00, Duration: 30 day, Stop date: 03/05/11 17:00:00 insulin 2010-0 No Sudhirjahed M 8 unit, Ca moria isophane-SPRING BENDER 9-06 Alikhan 0.08 mL, l H 11:30: Route: Novice 00 SUB-Q, Drug form: INJ, Before Breakfast, Start date: 02/04/11 6:30:00, Stop date: 03/05/11 6:30:00 insulin 2010-0 No Mujahed M 8 unit, Ca moria isophane-SPRING BENDER 9-06 Alikhan 0.08 mL, l H 02:00: Route: Jorge Alberto 00 SUB-Q, Drug form: INJ, Bedtime, Start date: 02/03/11 21:00:00, Stop date: 03/04/11 21:00:00 potassium 2010-0 No Darcy 40 mEq, 2 Memoria chloride 20 02-03 Jeane tab, l mEq oral 19:29: [place] Route: PO, Jorge Alberto tablet, 00 Drug [...] 17:00:00 insulin No Darcy 15 unit, Memoria isophane-SPRING BENDER 02-03 Jeane 0.15 mL, l H 05:00: [place] Route: Novice 00 SUB-Q, Drug form: INJ, Q24H, Start [...] tablet 22:00: Ash Route: PO, H ermann Drug form: TAB, BID, Start date: 02/01/11 17:00:00, Stop date: 03/03/11 8:00:00 heparin No Sky 5,000 Memoria 02-01 Mzee Rizvi unit, 1 l 21:00: mL, Route: Jorge Alberto 00 SUB-Q, Drug form: INJ, Q8H, Start date: 02/01/11 16:00:00, Duration: 30 day, Stop date: 03/03/11 8:00:00 Kayexalate No Darcy 15 gm, 60 Memoria 02-01 Jeane mL, Route: l 18:19: [place] PO, Drug Gerda nn 00 form: SUSP, ONCE, Start date: 02/01/11 13:19:00, Stop date: 02/01/11 13:19:00 potassium No Darcy 20 mEq, 1 Memoria chloride 20 02-01 Jeane tab, l mEq oral 14:00: [place] Route: PO, Jorge Alberto tablet, 00 Drug [...] oral 02-01 Jeane tab, l tablet 14:00: [place] Route: PO, H erm Drug form: TAB, Daily, Start date: 02/01/11 9:00:00, Duration: 30 day, Stop date: 03/02/11 9:00:00 [place] No Bonnie Jyotsna 120 mg, 2 Memoria Thyroid 02-01 Zeider tab, l 14:00: Route: PO, Drug form: TAB, Daily, Start date: 02/01/11 9:00:00, Duration: 30 day, Stop date: 03/02/11 9:00:00 dexamethaso No Bonnie Jyotsna 4 mg, 1 Memoria ne 02-01 Zeider tab, l 05:00: Route: PO, Jorge Alberto 00 Drug form: TAB, Q8H, Start date: 02/01/11 0:00:00, Duration: 2 day, Stop date: 02/02/11 16:00:00 Humulin N No Darcy 20 unit, Memoria 02-01 Jeane 0.2 mL, l 05:00: [place] Route: Novice SUB-Q, Drug form: INJ, BID, Start date: [...] Jv 0.01 mL, l 22:22: Nur Route: Novice 00 SUB-Q, Drug form: SOLN, TID-Before Meals, [...] 01-31 Jv supp, l 22:22: Nur Route: UT, Gerda nn 00 Drug form: SUPP, Bedtime, [...] 01-31 Zeider SUB-Q, l 22:00: Drug form: Novice 00 INJ, BID, Start date: 01/31/11 17:00:00, Duration: 30 day, Stop date: 03/02/11 9:00:00 metFORmin No Bonnie Jyotsna 500 mg, 1 Memoria 500 mg oral 01-31 Zeider tab, l tablet 21:00: Route: PO, Gerda nn 00 Drug form: TAB, Q8H, Start date: 01/31/11 16:00:00, Duration: 30 day, Stop date: 03/02/11 8:00:00 [place] 5/325 No Bonnie Jyotsna 1 tab, Memoria oral tablet 01-31 Zeider Route: PO, l 19:56: Drug Form: Jorge Alberto 00 TAB, Q4H, PRN as needed for pain, Start date: 01/31/11 14:56:00, Duration: 30 day, Stop date: 03/02/11 14:55:00 bisacodyl No Bonnie Jyotsna 10 mg, Memoria 01-31 Zeider Route: UT, l 19:56: Drug form: Jorge Alberto 00 [...] 1 Memoria 10 mg 01-31 Zeider supp, UT, l rectal 17:52: Daily, Novice suppository 36 PRN, 60 supp, Constipati on, Substituti on Allowed, SUPP [place] Yes Bonnie Goyal 1 tab, PO, Memoria oral tablet 01-31 Zeider Q4H, PRN, l 17:52: 60 tab, Jorge Alberto 26 Headache, Substituti on Allowed, Maintenanc e, TAB [place] No Abel 1 tab, M emoria oral tablet 01-30 Howard Route: PO, l 20:44: Bonner Drug Form: Berto n 00 TAB, Q4H, PRN Headache, Start date: 01/30/11 15:44:00, Duration: 30 day, Stop date: 03/01/11 15:43:00 dexamethaso No Katie L 4 mg, 1 Memoria ne 01-29 Christianson tab, l 17:00: Route: PO, Novice 00 Drug form: TAB, Q6H-02, Start date: 01/29/11 12:00:00, Stop date: 02/28/11 6:00:00 insulin No Memo 20 unit, Kalia aida isophane-SPRING BENDER 01-29 Omidvar 0.2 mL, l H 13:00: [...] J 150 mg, 10 Memoria 15 mg/mL 831 Srikanth Boss mL, Route: l oral syrup [...] Day mL, Route: l 08:30: IV, ONCE, Novice 00 Start date: 01/27/11 3:30:00, Stop date: [...] tab, l 21:00: Route: PO, Jorge Alberto Drug form: TAB, Q4H, Start date: 01/26/11 [...] Mem oria 8-27 Route: l 22:50: IVPB, Novice 00 ONCE, Start date: 01/25/11 17:50:00, Stop date: 01/25/11 17:50:00 heparin No Sky 5,000 Memoria 8-27 [facility] unit, 1 l 21:00: mL, Route: Novice 00 SUB-Q, Drug form: INJ, Q8H, Start [...] 30 day, Stop date: 02/24/11 6:43:00 magnesium No Miles D 4 gm, 100 Memoria [...] 10 mg, 1 Memoria ne 01-25 Ollie Rzivi mL, Route: l 05:00: IV, Drug form: INJ, Q6H, Start date: 01/25/11 0:00:00, Stop date: 02/23/11 18:00:00 Insulin No Megan 99 mL, Memori a regular 100 01-25 [place] Rate: l unit + 04:59: TITRATE, Sodium Route: IV, Chloride Total 0.9% IV 99 Volume: mL 100, Start date: 01/24/11 23:59:00, Duration: 30 day, Stop date: 02/23/11 23:58:00 Dextrose No Miles D 12.5 gm, Me moria 50% Syringe 01-25 Christian 25 mL, l 04:41: Route: Jorge Alberto IVP, Drug Form: INJ, PRN, PRN Abnormal [...] 500 mg, M emoria am 01-25 Srikanth Reeses Route: IV, l 02:00: Q12H, Jorge Alberto 00 Start date: 01/24/11 21:00:00, Duration: 30 day, Stop date: 02/23/11 9:00:00 famotidine No Juan J 20 mg, 2 M emoria 01-25 Srikanth Boss mL, Route: l 02:00: IV, Drug Jorge Alberto 00 form: INJ, Q12H, Start date: 01/24/11 21:00:00, [...] Route: l 14:00: IVPB, Drug form: INJ, [id number], Start date: 01/24/11 9:00:00, Duration: 30 day, [...] 8- tab, PO, l 00:20: Daily, 30 Novice 49 tab, Substituti on Allowed, TAB heparin [...] Alberto 16 Substituti on Allowed, TAB metFORmin Yes [...] Jorge Alberto jimenez 06 Substituti on Allowed [place] Yes Bonnie Goyal 1 tab, PO, Memoria Thyroid 120 8-25 Zeider Daily, 30 l mg oral 19:28: tabJorge Alberto tablet 50 Substituti on Allowed, TAB docusate No Roopa Tatyana 100 mg, 1 Memoria 8-25 Ryan cap, l 14:00: Route: PO, Novice 00 Drug form: CAP, BID, Start date: [...] No Gideon 650 mg, 2 Memoria en 8 Jv tab, l 10:22: Nur Route: PO, Drug form: TAB, Q4H, PRN Pain/Fever , Start date: 01/23/11 5:22:00, Duration: 30 day, Stop date: 02/22/11 5:21:00 morphine 2010- No Sky 2 mg, 1 Kalia aida Sulfate 8-25 Mzee Rizvi mL, Route: l 10:22: IVP, Drug Novice 00 form: INJ, Q4H, PRN Pain Score 4-6, Start date: 01/23/11 5:22:00, Duration: 30 day, Stop date: 02/22/11 5:21:00, Hold for respirator y rate of 8 or less NS + KCL No Isable 1,000 mL, Mem oria 20mEq/L 8-25 Manasa [...] 8-25 Jv supp, l 10:14: Nur Route: UT, Gerda nn 00 Drug form: SUPP, Daily, [...] Sulfate 8-25 Jv mL, Route: l 10:14: Nur IVP, Drug Berto n 00 form: [...] rs 0.75 0.75 ity of MG/0.5ML MG/0.5ML [place] Subcutaneou Subcutaneou P hysici s Solution s [...] Oral MG Oral ity of Capsule Capsule [place] [facility] amLODIPine amLODIPine Yes Uni vers Besylate 5 Besylate 5 ity of MG Oral MG Oral [place] Tablet Tablet Physici ans Lantus SOLN Lantus SOLN Yes U nivers ity of [place] [facility] Plavix 75 Plavix 75 Yes Unive rs MG Oral MG Oral ity of Tablet Tablet [place] [facility] Gabapentin Gabapentin Yes Uni vers 100 MG TABS 100 MG TABS i ty of [place] [facility] Vital Signs Vital Name Observation Time Observation Value Comments Source Systolic blood 2020-03-27 144 mm[Hg] [facility] 12:12:00 [place] [facility] Diastolic blood 2020-03-27 64 mm[Hg] [place] o pressure 12:12:00 [place] [facility] Body temperature 2020-03-27 97.5 [degF] [facility] 12:12:00 [place] [facility] Heart Rate 2020-03-27 84 /min [facility] 12:12:00 [place] [facility] Respiratory rate 2020-03-27 18 /min [facility] 12:12:00 [place] [facility] Respitory Rate 2020-02-27 [facility] 18:00:00 Systolic (mm Hg) 2020-02-27 [facility] rmann 18:00:00 Diastolic (mm Hg) 2020-02-27 [facility] ermann 18:00:00 Respitory Rate 2020-02-27 [facility] 17:00:00 Respitory Rate 2020-02-27 [facility] 16:00:00 Systolic (mm Hg) 2020-02-27 [facility] rmann 14:00:00 Diastolic (mm Hg) 2020-02-27 [facility] ermann 14:00:00 Systolic (mm Hg) 2020-02-27 [facility] rmann 12:00:00 Diastolic (mm Hg) 2020-02-27 [facility] ermann 12:00:00 Temperature Oral 2020-02-23 98.4 F [facility] rmann (F) 01:00:00 Temperature Oral 2020-02-22 98.8 F [facility] (F) 21:35:00 Temperature Oral 2020-02-22 96.8 F [facility] (F) 18:00:00 Respitory Rate 2020-02-20 [facility] 07:00:00 Respitory Rate 2020-02-20 [facility] 06:00:00 Temperature Oral 2020-02-20 98 F [facility] (F) 05:00:00 Respitory Rate 2020-02-20 [facility] 05:00:00 Systolic (mm Hg) 2020-02-20 [facility] 05:00:00 Diastolic (mm Hg) 2020-02-20 [facility] ermann 05:00:00 Systolic (mm Hg) 2020-02-20 [facility] 03:00:00 Diastolic (mm Hg) 2020-02-20 [facility] ermann 03:00:00 Temperature Oral 2020-02-20 97.4 F [facility] (F) 01:00:00 Systolic (mm Hg) 2020-02-20 [facility] 01:00:00 Diastolic (mm Hg) 2020-02-20 [facility] ermann 01:00:00 Temperature Oral 2020-02-16 98 F [facility] (F) 21:00:00 [facility]02[facility] 12:[facility] 2020-02-16 [facility] 09:32:00 Heart Rate 2020-02-16 [facility] 05:09:00 Height 2020-02-15 149.86 cm [facility] 22:43:00 Weight 2020-02-15 [facility] 22:43:00 BMI Calculated 2020-02-15 [facility] mercy 22:43:00 Systolic blood 2020-02-15 136 mm[Hg] [facility] - pressure 13:00:00 [facility] [place] Diastolic blood 2020-02-15 63 mm[Hg] [facility] - [facility] Heart rate 2020-02-15 71 /min [facility] - 13:00:00 [facility] [place] Body temperature 2020-02-[address] [facility] - 13:00:00 [facility] Respiratory rate 2020-02-15 18 /min [facility] Oxygen saturation 2020-02-15 96 /min [facility] in Arterial blood 13:00:00 Medical nter by Pulse oximetry Body height 2020-02-[address] [facility] - 22:11:00 [facility] Body weight 2020-02-[address] [facility] - 22:11:00 [facility] BMI 2020-02-11 37.63 kg/m2 [facility] - 22:11:00 [facility] Heart Rate 2019-12-20 [facility] [...] ermann 14:30:00 Temperature Oral 2019-11-24 99.0 F [facility] (F) 12:57:00 Height 2019-11-23 149.86 cm [facility] 07:25:00 Weight 2019-11-23 [facility] 07:25:00 BMI Calculated 2019-11-23 [facility] 07:25:00 Temperature Oral 2019-11-22 97.4 F [facility] rmann (F) 14:53:00 Temperature Oral 2019-11-22 97.9 F [facility] (F) 11:18:00 Heart Rate 2019-11-22 [facility] 10:08:00 BP Systolic 2019-05-05 148 mm[Hg] [facility] 11:27:00 [place] [facility] BP Diastolic 2019-05-05 62 mm[Hg] [facility] 11:27:00 [place] [facility] Height 2019-05-05 59 [in_us] [facility] 11:27:00 [place] [facility] Temperature 2019-05-05 98.5 [degF] [facility] 11:27:00 [place] [facility] Heart Rate 2019-05-05 72 /min [facility] 11:27:00 [place] [facility] Height 2019-05-05 59 [in_us] [facility] 11:26:00 [place] [facility] Temperature 2019-05-05 98.5 [degF] [facility] 11:26:00 [place] [facility] Temperature Oral 2019-03-04 [...] 14:39:00 Height 2019-01-25 59 [in_us] [facility] 08:41:00 [place] [facility] Temperature 2019-01-25 98.3 [degF] [facility] 08:41:00 [place] [facility] Temperature Oral 2019-01-10 97.6 F [...] [facility] 12:44:00 Heart Rate 2018-11-29 Jan Berto n 12:44:00 Temperature Oral 2018-11-29 98.7 F [facility] (F) 12:44:00 BP Systolic 2018-11-11 149 mm[Hg] Location: [facility] 12:31:00 Position: [place] [facility] S[facility] BP Diastolic 2018-11-11 65 mm[Hg] Location: [facility] 12:31:00 Position: [place] [facility] Height 2018-11-11 59 [in_us] [facility] 12:31:00 [place] [facility] Weight 2018-11-11 213 [lb_av] [facility] 12:31:00 [place] [facility] Body Mass Index 2018-11-11 43.02 kg/m2 University o f Calculated 12:31:00 [place] [facility] Temperature 2018-11-11 97.6 [degF] Method: Oral [facility] 12:31:00 [place] [facility] Heart Rate 2018-11-11 74 /min Location: [facility] 12:31:00 Apical; [place] [facility] BP Systolic 2018-10-14 164 mm[Hg] [facility] 12:27:00 Position: [place] [facility] Sitting BP Diastolic 2018-10-14 68 mm[Hg] Location: [facility] 12:27:00 Position: [place] [facility] Sitting Height 2018-10-14 59 [in_us] [facility] 12:27:00 [place] [facility] Weight 2018-10-14 215 [lb_av] [facility] 12:27:00 [place] [facility] Body Mass Index 2018-10-14 43.43 kg/m2 University o f Calculated 12:27:00 [place] [facility] Temperature 2018-10-14 98.5 [degF] Method: Oral [facility] 12:27:00 [place] [facility] Heart Rate 2018-10-14 84 /min Location: [facility] 12:27:00 Apical; [place] [facility] Systolic (mm [...] 23:07:00 BP Systolic 2018-09-21 136 mm[Hg] Location: [facility] 11:28:00 [place] [facility] BP Diastolic 2018-09-21 88 mm[Hg] [facility] 11:28:[facility] [place] [facility] Height 2018-09-21 59 [in_us] [facility] 11:28:00 [place] [facility] Weight 2018-09-21 205 [lb_av] [facility] 11:28:00 [place] [facility] Body Mass Index 2018-09-21 41.41 kg/m2 University o f Calculated 11:28:00 [place] [facility] Temperature 2018-09-21 96.8 [degF] Method: Oral [facility] 11:28:00 [place] [facility] Heart Rate 2018-09-21 84 /min Location: [facility] 11:28:00 Apical; [place] [facility] Temperature Oral [...] 19:00:00 Temperature Oral 2018-08-19 97.8 [facility] (F) 17:23:00 Systolic (mm Hg) 2018-08-19 [facility] 17:15:00 Diastolic (mm Hg) 2018-08-19 [facility] ermann 17:15:00 Respitory Rate 2018-08-19 [facility] [...] 08:48:00 Temperature Oral 2011-03-25 97.7 F [facility] (F) 08:48:00 Heart Rate 2011-03-25 [facility] [...] 12:09:00 Temperature Oral 2011-02-26 98.7 F [facility] (F) 08:19:00 Respitory Rate 2011-02-26 [...] n 03:09:00 Temperature Oral 2011-02-19 97.5 F [facility] rmann (F) 03:09:00 Diastolic (mm Hg) 2011-02-18 [facility] 20:00:00 Temperature Oral 2011-02-18 98.4 F [facility] rmann (F) 20:00:00 Heart Rate 2011-02-18 [facility] 20:00:00 Respitory Rate 2011-02-18 [facility] 20:00:00 Systolic (mm Hg) 2011-02-18 [facility] rmann 20:00:00 Height 2011-01-31 149.86 cm [facility] 22:02:00 Weight 2011-01-31 [facility] 22:02:00 Systolic (mm Hg) 2011-01-31 [facility]mann 12:46:00 Diastolic (mm Hg) 2011-01-31 [facility] ermann 12:46:00 Peripheral Pulse 2011-01-31 [facility] Rate 12:46:00 Respitory Rate 2011-01-31 [facility] 12:46:00 Temperature Oral 2011-01-31 98.5 F [facility] rmann (F) 12:46:00 Peripheral Pulse 2011-01-31 [facility] Rate 11:21:00 Systolic (mm Hg) 2011-01-31 [facility] rmann 11:21:00 Diastolic (mm Hg) 2011-01-31 [facility] ermann 11:21:00 Diastolic (mm Hg) 2011-01-31 [facility] ermann 10:58:00 Peripheral Pulse 2011-01-31 [facility] Rate 10:58:00 Systolic (mm Hg) 2011-01-31 [facility] rmann 10:58:00 Respitory Rate 2011-01-31 [facility] 10:35:00 Temperature Oral 2011-01-31 97.8 F [facility] r[facility] (F) 10:35:00 Respitory Rate 2011-01-31 [facility] 08:28:00 Temperature Oral 2011-01-31 98.1 F [facility] (F) 08:28:00 Height 2011-01-23 149.86 cm [facility] 09:37:00 Weight 2011-01-23 [facility] 09:37:00 Procedures Procedure Date / Time Performing Source Performed Clinician [QL] CBC (INCLUDES DIFF/PLT) 2020-03-27 [facility] 00:00:00 Physicians REPORT OF PROCEDURE - 2020-02-22 Provider, Jane Reyes ukes - ENDOSCOPY SCAN 17:13:37 Scanning [facility] POCT-GLUCOSE METER 2020-02-[address] [facility] - 13:09:00 Medical Center POCT-GLUCOSE METER 2020-02-15 Harley, Gerry [facility] - 08:38:00 [facility] CBC W/PLT COUNT & AUTO 2020-02-15 Francisco [address] Dylan [facility] - DIFFERENTIAL 04:38:00 [facility] POCT-GLUCOSE METER 2020-02-[address] [facility] - 21:04:00 [facility] POCT-GLUCOSE METER 2020-02-14 Paez, Shirley Khan [facility] - 18:04:00 [facility] URINE CULTURE 2020-02-[address] [facility] - 15:04:00 [facility] URINALYSIS W/ REFLEX URINE 2020-02-[address] [facility] - CULTURE 15:04:00 [facility] POCT-GLUCOSE METER 2020-02-14 Paez, Shirley Khan [facility] - 12:17:00 [facility] POCT-GLUCOSE METER 2020-02-14 Paez, Shirley Khan [facility] - 11:51:00 [facility] XR ESOPH SWALLOW FUNCTION 2020-02-[address] [facility] - W/CINE VIDEO 10:24:00 [facility] CBC W/PLT COUNT & AUTO 2020-02-14 Francisco Leonardo Dylan [facility] - DIFFERENTIAL 04:24:00 [facility] POCT-GLUCOSE METER 2020-02-13 Paez, Shirley Khan [facility] - 22:29:00 Medical Center POCT-GLUCOSE METER 2020-02-13 Paez, Shirley Bill [facility] - 17:26:00 [facility] XR CHEST 2 VIEWS 2020-02-13 Paez, Shirley Khan [facility] - 12:01:00 [facility] POCT-GLUCOSE METER 2020-02-13 Paez, Shirley Bill [facility] - 08:03:00 [facility] POCT-GLUCOSE METER 2020-02-[address] [facility] - 22:59:00 [facility] POCT-GLUCOSE METER 2020-02-[address] [facility] - 17:20:00 [facility] XR CHEST 1 VIEW 2020-02-[address] [facility] - PORTABLE/BEDSIDE 12:43:00 [facility] POCT-GLUCOSE METER 2020-02-[address] [facility] - 12:06:00 [facility] TSH/FREE T4 IF INDICATED 2020-02-12 [facility]Francisco [facility] - 10:54:00 [facility] VITAMIN B12 2020-02-12 Shou, Francisco Dylan [facility] - 10:54:00 [facility] LACTATE DEHYDROGENASE (LDH) [facility] 10:54:00 [facility] CREATINE KINASE (CK) 2020-02-12 [facility], Francisco Richardson [facility] - 10:54:00 [facility] COMPREHENSIVE METABOLIC PANEL 2020-02-12 [facility], Francisco Richardson [facility] - 10:54:00 [facility] POCT-GLUCOSE METER 2020-02-[address] [facility] - 09:36:00 [facility] CBC W/PLT COUNT & AUTO 2020-02-12 Malissa Francisco Richardson [facility] - DIFFERENTIAL 08:49:00 [facility] SARS-COV2/RT-PCR ([facility] & REF 2020-02-12 Nalam, Susy Socorro [facility]) 03:39:00 [facility] Transcatheter retrieval, 2019-02-21 Feli Azul percutaneous, of 20:58:00 intravascular foreign body (eg, fractured venous or arterial catheter), includes radiological supervision and interpretation, and imaging guidance (ultrasound or fluoroscopy), when performed [place] Insertion 2019-01-28 [facility] 00:00:00 Physicians XRAY Chest 2 views [id number] 2018-11-12 [facility] 00:00:00 Physicians IVIG Infusion Therapy 2018-11-11 [facility] 00:00:00 Physicians [QLH] CBC (INCLUDES DIFF/PLT) 2018[facility]11-11 [facility] [QLH] CMP W/EGFR 2018-11-11 [facility] 00:00:00 Physicians [place] Bone Density Scan [id number] 2018-10-14 [facility] [place] 00:[facility]:00 Physicians Selective catheter placement, 2018-08-19 Ca morial Novice vertebral artery, unilateral, 13:02:00 with angiography of the ipsilateral vertebral circulation and all associated radiological supervision and interpretation, includes angiography of the cervicocerebral arch, when performed Insertion or Replacement of 2011-01-26 Kalia rial Novice Skull Tongs or Halo Traction 05:00:00 Device Other Excision or Destruction 2011-01-26 Ca morial Novice of Lesion or Tissue of Brain 05:00:00 Excision of Lesion or Tissue 2011-01-24 [facility] orial Jorge Alberto of Cerebral Meninges 05:00:00 Intracranial Pressure 2011-01-24 [facility] Monitoring 05:00:00 Transfusion of Packed Cells 2011-01-24 Kalia rial Novice 05:00:00 History of [facility] Ventriculoperitoneal shunt Physi cians creation Cervical laminectomy [facility] section [facility] n Resection [facility] Shunt construction [facility] Tonsillectomy [facility] Plan of Care Planned Activity Planned Date Details Comments Source Future Scheduled 2027-02-[address] [facility] Test 00:00:00 malignant neoplasm Medical C enter of colon (procedure) [code = 622138498] Future Scheduled 2020-04-03 [QL] CBC (INCLUDES Unive rsity of Test 00:00:00 DIFF/PLT) [code = [place] [facility] [QL] CBC (INCLUDES DIFF/PLT)] Diagnostic [...] [facility] - Test 00:00:00 (#1) [code = [facility] INFLUENZA VACCINE (#1)] Diagnostic Test 2018-11-12 XRAY Chest 2 views Univer michaely of Pending 00:00:00 83881 [code = [place] Physicia ns [address]85] Future Scheduled 2014-06-[address] [facility] [address] [facility] - Test 00:00:00 WELLNESS (YEAR 2 or Medical Center FIRST YEAR if no IPPE) [code = MEDICARE ANNUAL WELLNESS (YEAR 2 or FIRST YEAR if no IPPE)] Future Scheduled 2012-01-10 PNEUMOCOCCAL [address] - Test 00:00:00 YRS (1 of 1 - Medical Center [id number]_Ogtgmnl PCV13) [code = PNEUMOCOCCAL 65+ YRS (1 of 1 - MCON68_[place] PCV13)] Future Scheduled [address] [facility] - Test 00:00:00 malignant neoplasm Medical C enter of breast (procedure) [code = 944359850] Future Appointment 2020-06-26 Cheko CORRIGAN [facility] 11:00:00 Dougie DRAKE Physician s Encounters Start End Encounter Admission Attending Care Care Encounter Source Date/Time Date/Time Type Type Clinicians Facility Department ID 2020-02-15 [id number] 16:11:00 2019-02-05 Inpatient U [facility] MED [id number] MHH H 08:54:00 2018-12-24 Inpatient U MHHH MHHH [id number] MHH H 18:32:00 2018-08-16 [id number] 23:35:00 2020-03-27 2020[facility]03-[facility] [id number] [facility] 11:30:00 11:30:00 lisette COR[facility]IGAN M.D. [facility] M[facility] Center Physi ci ans 2020-02-15 2020-02-27 Outpatient Lamont [facility] [id number] 16:11:00 14:07:00 Clovis Matute 2020-02-15 2020-02-15 Outpatient Hellen [facility] [id number] 16:11:00 16:11:00 Dvaid Suresh 2020-01-05 2020-01-05 Outpatient Fernandez, MHOIH MHOI [id number] 11:40:00 23:59:00 Andre Kaur 05 2020-01-05 2020-01-05 NIRALI Olson [id number] Univers 10:00:00 10:00:00 t; Cheko CORRIGAN [place], [place] Cheko CORRIGAN Physi ci ans 2019-11-22 2019-12-20 Outpatient Nikunj, [facility] [id number] 05:06:00 15:30:00 Arsha 75 Estella 2019-11-22 2019-12-20 Outpatient Nikunj, [facility] [id number] 05:06:00 15:30:00 Arsha 75 Estella 2019-11-29 2019-11-29 NIRALI Olson UTP [id number] Univers 11:00:00 11:00:00 t; Cheko CORRIGAN [place], [place] Cheko CORRIGAN Physi ci ans 2019-11-22 2019-11-22 Outpatient Nikunj, [facility] [id number] 05:06:00 05:06:00 Arsha 75 Estella 2019-11-22 2019-11-22 Outpatient Osvaldo [facility] [id number] 05:06:00 05:06:00 Saleem Perry 2019-11-22 2019-11-22 Outpatient Osvaldo [facility] [id number] 05:06:00 05:06:00 Saleem Perry 2019-11-22 2019-11-22 Inpatient E MH MED [id number] MH 12:06:00 03:48:00 2019-05-05 2019-05-05 NIRALI Olson [facility] - [id number] [facility] 11:30:00 11:30:00 t; Cheko CORRIGAN [facility] Dougie CORRIGAN M.D. [place] [facility] ci ans 2019-02-05 2019-03-04 Outpatient Hernán [facility] [id number] 08:54:00 18:18:00 Jai Perez 2019-01-25 2019-01-25 NIRALI Olson Neurology - [id number] [facility] 08:00:00 08:00:00 t; Cheko CORRIGAN [facility] Cheko CORRIGAN [place] Physi ci ans 2018-12-24 2019-01-10 Outpatient Lyric [facility] [id number] 18:32:00 15:53:00 Reji 2018-11-29 2018-11-29 Outpatient Stan [facility] [id number] 07:33:57 12:20:00 Abel Vizcaino 2018-11-29 2018-11-29 Emergency E [facility]H MHHH [id number] MHHH 07:33:00 07:33:00 2018-11-18 2018-11-18 Outpatient Noelle MHLANETTEP MHOIP [id number] 09:50:00 23:59:00 [place] 2018-11-11 2018-11-11 NIRALI Olson Neurology - [id number] [facility] 11:00:00 11:00:00 t; Cheko CORRIGAN [facility] Dougie CORRIGAN M.D. [facility] ans 2018-10-21 2018-10-21 Outpatient CEZAR DrakeP MHOIP [id number] 10:21:00 23:59:00 Sukg 03 2018-10-14 2018-10-14 NIRALI Olson Neurology [id number] [facility] 11:30:00 11:30:00 t; Cheko CORRIGAN [place], [place] Cheko CORRIGAN Physi ci ans 2018-09-21 2018-09-23 Outpatient Hellen [facility] [id number] 18:06:00 16:20:00 David Jacobo 13 2018-09-21 2018-09-23 Outpatient Hellen, [facility] [id number] 18:06:00 16:20:00 David Jacobo 13 2018-09-21 2018-09-21 Outpatient U MHH MH [id number] MHHH 18:06:00 18:06:00 2018-09-21 2018-09-21 NIRALI Olson Neurology [id number] Univers 10:30:00 10:30:00 madelyn; Cheko CORRIGAN ity of Dougie DRAKE M.D. Physi ci ans 2018-09-12 2018-09-20 Outpatient Zbigniew, [facility] [id number] 15:01:00 16:23:00 Sean 01 Luis 2018-09-12 2018-09-10 Inpatient U [facility] [id number] [facility] 15:01:00 00:20:00 2018-09-09 2018-09-09 Outpatient Okpara, [facility] [id number] 11:57:00 22:17:00 Sadi N 00 2018-09-09 2018-09-08 Inpatient U [facility] [id number] Memoria 11:57:00 09:51:00 l Novice [facility] l [facility] 2018-08-16 2018-08-19 Outpatient Zbigniew [facility] [id number] 15:03:00 21:09:00 Sean 05 Luis 2018-08-16 2018-08-17 Outpatient MHMISCHER MHMISCHER [id number] 10:11:00 23:59:59 00 Results Test Description Test [...] code = MCH) 24.1 pg 27.0-31.0 [facility] SnlxdspEUCKQAJPKW1732-95-24 05:52:0030.9[facility] HermannHEMATOLOGY 2020-02-27 05:52:0020.2[facility] XpymrigLIVRHEFQFA5492-97-83 05:52:03296Pqjfgmjz JicafnlNSVFRBCANN0694-75-70 05:52:009.5[facility] YhuzmjoRPZFXYWWTV4201-60-72 05:52:0078.2[facility] WgvxuhsAEVAKOQJUD6742-70-27 05:52:0015.4[facility] Jorge Alberto XVNRLFNNKC8136-96-36 05:52:005.7[facility] MefxdofZQGLMVNJQU4315-52-97 05:52:000.3 [facility] TqnejgpCLKQMNEZUD8883-65-87 05:52:000.4[facility] HermannHEMATOLOGY 2020-02-27 05:52:0014.9[facility] DyplqupAUVZLHNHIW6176-75-03 05:52:002.9[facility] HhjiiyiIOVAUFVMET5859-09-91 05:52:001.1[facility] WcatcegCJRXAEWALU4344-38-32 05:52:000.1[facility] AiucghuJZZKIHQESQ4218-94-82 05:52:000.1[facility] ZEXJUJXMYM0413-77-32 05:52:001+ *ABN*(02/27/20 12:52 AM)[facility] PARATHYROID JZSYWSF4297-63-82 05:52:001.22[facility] HermannPARATHYROID PROFILE 2020-02-27 05:52:001.20[facility] HermannCHEM SJFRG8344-24-21 06:07:002.1[facility] HermannCHEM AHZAH9945-41-29 06:07:39613Vtumytvv HermannCHEM LOJVE0291-06-57 06:07:0014[facility] HermannCHEM NPAGG6176-52-51 06:07:000.74[facility] HermannCHEM JRASS5675-78-33 06:07:88322Wrmjbqcv HermannCHEM YMYTX6312-65-57 06:07:004.3 [facility] HermannCHEM JNEBP6046-03-81 06:07:91671Biaxysnq HermannCHEM PANEL 2020-02-26 06:07:0023[facility] HermannCHEM CVPFL5136-77-88 06:07:008.7[facility] HermannCHEM BCHLK4870-55-00 06:07:0010.3[facility] HermannCHEM SSTFT3855-19-16 06:07:0080[facility] HermannCHEM TCSAA9418-71-33 06:07:002.7[facility] MOBJSJSCSR0625-25-34 06:07:0084.4[facility] ZxzaulgWKFADAVVQI6517-66-80 06:07:00 10.8[facility] AewkajaZEWHVYQUQP5181-58-51 06:07:004.4[facility] HermannHEMATOLOGY 2020-02-26 06:07:000.1[facility] YoehgoiTGKYZUWPIY4336-08-44 06:07:000.3[facility] WbfrpazMXAWBIDDDS6637-87-30 06:07:0014.3[facility] ToebhdtGOYQQPTCAB0768-86-80 06:07:001.8[facility] MmqzmgaTZFLMVBXIK8246-71-84 06:07:000.7[facility] XFTYPJUJOF4600-73-09 06:07:001+ *ABN*(02/26/20 1:07 AM)[facility] HermannHEMATOLOGY 2020-02-26 06:07:0016.9[facility] GjxolylLPPRFUZPYU5192-35-05 06:07:003.72[facility] KbbbrsjPGZBTHPNBH1993-60-36 06:07:009.0[facility] AxxgivcBODPPFCENP8817-20-86 06:07:0029.3[facility] MupnqbeSDWQKEWEZQ0350-45-28 06:07:0078.8[facility] ZNMWZMCOOO3893-46-52 06:07:00 Test Item Value Reference Range Interpretation Comments MCH (test code = MCH) 24.1 pg 27.0-31.0 [facility] IsqgidmEWCTPDBEXT9210-47-02 06:07:0030.[facility] HermannHEMATOLOGY 2020-02-26 06:07:0019.6[facility] PaihjdyWXULQEAJHE2433-13-41 06:07:0098[facility] BeenahyAWIJBSUWOK2468-29-68 06:07:0010.1[facility] HermannPARATHYROID PROFILE 2020-02-26 06:07:001.18[facility] HermannPARATHYROID LWSLOFT0842-67-51 06:07:00 1.17[facility] HermannCHEM GHRQM2584-36-71 08:30:61262Uusixcbj HermannCHEM PANEL 2020-02-25 08:30:0016[facility] HermannCHEM UPCIC5910-42-30 08:30:000.75[facility] HermannCHEM EUJOL7033-90-40 08:30:66781Vgcnkxjg HermannCHEM LXAPE8943-83-19 08:30:004.emorial HermannCHEM SGRJP7368-02-75 08:30:17280Nziffyym HermannCHEM JKRIH7150-56-30 08:30:0024[facility] HermannCHEM UZNRS3937-06-57 08:30:009.0 [facility] HermannCHEM PFAOF9838-89-07 08:30:0012.1[facility] HermannCHEM PANEL 2020-02-25 08:30:0080[facility] HermannCHEM SCCCF9357-39-10 08:30:001.9[facility] HermannCHEM FCGUS5787-30-85 08:30:002.emorial ZvyspvkUQDIBQEHNV1223-74-83 08:30:96578Nxxyvqqa SdvtehwHHUOOVBNXH0471-67-25 08:30:0084.7[facility] PUCNAMJIFC3250-09-72 08:30:0010.5[facility] RssewypFHRWHRMNWC9650-44-18 08:30:00 4.5[facility] GzutsppBNPRAMRZCS7035-71-02 08:30:000.1[facility] HermannHEMATOLOGY 2020-02-25 08:30:000.2[facility] ObfnjsdDCPWIODZRR2333-95-85 08:30:0015.2[facility] LfafswwGQRMIKJNLV7335-51-38 08:30:001.9[facility] LwgenmeGANMBTZOXT1473-72-33 08:30:000.8[facility] ZvxmuykHUBIKJRTNT4000-31-22 08:30:001+ *ABN*(02/25/20 3:30 AM)[facility] PlghfcwEOSEUCXIPQ5635-25-42 08:30:0017.9[facility] HermannHEMATOLOGY 2020-02-25 08:30:003.96[facility] TxyjgamFMHUNVJNYS0665-55-16 08:30:009.6[facility] YqqecqzNDQFZMJYFK2322-87-28 08:30:0031.0[facility] ZkonuueGQLXFRLLTN1534-21-84 08:30:0078.3[facility] HpfbfweCXRJJMWWQI3839-42-87 08:30:00 Test Item Value Reference Range Interpretation Comments MCH (test code = MCH) 24.3 pg 27.0-31.0 [facility] UfgcmusIGVSVMDJFB8263-16-27 08:30:0031.0[facility] HermannHEMATOLOGY 2020-02-25 08:30:0019.5[facility] IzwpfctETDHNYWTLT7434-24-14 08:30:0094[facility] KukcdgbWPFRUAFJGU3721-81-37 08:30:009.6[facility] HermannPARATHYROID PROFILE 2020-02-25 08:30:001.17[facility] HermannPARATHYROID CKULCKU6490-52-15 08:30:00 1.17[facility] YgghcghDVIATANFFO0113-23-81 21:43:00Negative 5(02/24/20 4:43 PM) [facility] OihkbzhQGEVLCZTWJ3810-00-02 21:43:00 Test Item Value Reference Range Interpretation Comments Pat Od Value (test code = Pat Od 0.064 1 Value) [facility] AzngryzGMAPFCATWJ9561-63-34 21:43:00 Test Item Value Reference Range Interpretation Comments Pos CO Value (test code = Pos CO 0.400 1 Value) [facility] CzsskwzKUIPSEYGRS2652-49-69 06:06:000.1[facility] HermannHEMATOLOGY 2020-02-23 06:25:96714Fwvvynxb HermannCARDIAC WXUNUON6880-72-55 15:43:0073 Memorial GbkzsajOSJPZRJMQS9209-36-40 15:43:001+ *ABN*(02/22/20 10:43 AM)[facility] OqxdhriLKLROJMLFQ9197-83-46 15:43:001+ (02/22/20 10:43 AM)[facility] Jorge Alberto ZKBNNZSAEF7370-58-07 15:43:000.2[facility] JtypdytLJSAZNXURM2868-22-10 15:43:000.2 [facility] HermannCHEM PPHKH6227-95-72 08:57:001.7[facility] HermannHEMATOLOGY 2020-02-22 08:57:000.1[facility] HermannCHEM HWWNU6314-48-76 04:33:003.8[facility] HermannCEFTRIAXONE:SUSC:PT:ISOLATE:ORDQN:JNR1585-19-07 04:08:00Enterobacter cloacaeMemorial HermannURINE AND MPNNL5398-51-91 02:52:00Light Yellow *NA*(02/21/20 9:52 PM)[facility]annURINE AND TCUUT2440-79-15 02:52:00Slight *ABN*(02/21/20 9:52 PM)[facility]annUR[facility] AND INKVE1092-21-08 02:52:00 Test Item Value Reference Range Interpretation Comments UA Spec Grav (test code = UA Spec 1.015 1 Grav) [facility]ann[facility] AND ROTAD2120-36-36 02:52:00 Test Item Value Reference Range Interpretation Comments UA pH (test code = UA pH) 5.0 1 5.0-8.0 [facility] AND JYBKS3634-01-25 02:52:00Negative *NA*(02/21/20 9:52 PM) [facility] PJJDE9139-90-47 02:52:00Negative (02/21/20 9:52 PM) [facility] AND QTWXS1569-03-15 02:52:00<1.0[facility]annUR[facility] AND RWQKQ9779-62-44 02:52:00Positive *ABN*(02/21/20 9:52 PM)[facility]ann[facility] AND ADLVK1371-73-86 02:52:00Trace *ABN*(02/21/20 9:52 PM)[facility]ann[facility] AND YTKAU2411-52-65 02:52:0016[facility]annURINE AND UBGTR9818-25-98 02:52:00 2[facility]annURINE AND ZAVSB3300-41-20 02:52:003[facility] HermannCHEM PANEL 2020-02-22 00:49:002.9[facility] JfsoopmDJNZNSEANM4719-22-76 08:21:20910Rwmufiqv QzxwcqcLREXETRHVB9154-12-33 08:21:00 Test Item Value Reference Range Interpretation Comments PT (test code = PT) 14.2 s 12.0-14.7 [facility] WzahuseIKCTGCVMDC7921-77-01 08:21:00 Test Item Value Reference Range Interpretation Comments INR (test code = INR) 1.10 1 0.85-1.17 [facility] VxffjagCVYVFNSPKA9037-29-08 08:21:00 Test Item Value Reference Range Interpretation Comments PTT (test code = PTT) 43.0 s 22.9-35.8 [facility] XzyzcbjVXEEDSYBZT0687-80-80 08:21:50848Zprqpzuw [facility]BL[facility] BANK ZLGQTZT9550-55-33 14:31:00Negative (02/19/20 9:31 AM)[facility] HermannCHEM PANEL 2020-02-19 14:22:61367Qtiogwwa HermannCHEM KBTDH9069-41-03 14:22:0015Mem[facility] HermannCHEM UYZMT1355-31-27 14:22:000.67[facility] HermannCHEM LZHPD9402-56-50 14:22:95237Hjlpeili HermannCHEM FZYHQ8072-73-05 14:22:003.6[facility] HermannCHEM ZSIKT1123-27-70 14:22:30754Nvmyhohm HermannCHEM BGRFO7049-59-63 14:22:0029 [facility] HermannCHEM SOBYJ0252-70-51 14:22:008.4[facility] HermannCHEM PANEL 2020-02-19 14:22:008.6[facility] HermannCHEM KCABT8384-94-82 14:22:0087Mem[facility] HermannCHEM WFFWW8253-18-74 14:22:001.8[facility] BaptistannCHEM HJOHF4241-09-36 14:22:002.5MemiriChildress Regional Medical CenterYpulvyuCJTCHEWLXN6515-92-88 14:22:00 Test Item Value Reference Range Interpretation Comments PT (test code = PT) 14.2 s 12.0-14.7 [facility] AmericaTlyuwofMXUEZYWDAX1615-83-88 14:22:00 Test Item Value Reference Range Interpretation Comments INR (test code = INR) 1.10 1 0.85-1.17 [facility] AmericaAmmkrtwLJRTPVUUII0069-17-00 14:22:00 Test Item Value Reference Range Interpretation Comments PTT (test code = PTT) 37.8 s 22.9-35.8 [facility]BuvfpvhKXRYGPSGSV1537-33-14 14:22:11049NnionovlSt. [facility] HospitalHEMATOLOGY 2020-02-19 14:22:000.96[facility] CenterriChildress [facility] Medical CenterAkllgzdACULGWKAFT8930-11-30 14:22:00 Test Item Value Reference Range Interpretation Comments Thrombin Time (test code = Thrombin 25.6 s 15.0-21.2 Time) [facility] AustinNlbwixsQLONYZBWAG9021-71-79 14:22:44163MvzbxszdSt. Luke's Health – Memorial Livingston HospitalHEMBENJAMIN [facility] 2020-02-19 14:22:00 Test Item Value Reference Range Interpretation Comments PT (test code = PT) 14.4 s 12.0-14.7 [facility] AmericaHdlldxgLYFEEWTANW1971-90-99 14:22:00 Test Item Value Reference Range Interpretation Comments INR (test code = INR) 1.11 1 0.85-1.17 [facility] AmericaJpysghnYKHSHCWTZJ6389-69-07 14:22:00 Test Item Value Reference Range Interpretation Comments PTT (test code = PTT) 37.1 s 22.9-35.8 [facility] AmericaNwymwzeBZFKWEYLOD1780-39-06 14:22:0018.9[facility] CenterriChildress [facility] Medical CenterHEMATOLOGY 2020-02-19 14:22:004.69MemiriChildress Regional Medical CenterZvjolyiFYAXIHSWCH5099-36-21 14:22:0011.2[facility] ItsjbfrSAGMJFHDUB5743-05-59 14:22:0037.1[facility] NrxihkkBVNOYUGUSV8587-04-95 14:22:0079.1[facility] WhlsdejQQEZIMMJZQ4800-14-15 14:22:00 Test Item Value Reference Range Interpretation Comments MCH (test code = MCH) 23.8 pg 27.0-31.0 [facility] VymbpwmSWUVCCQCXE3391-54-88 14:22:0030.1[facility] HermannHEMATOLOGY 2020-02-19 14:22:0018.7[facility] ZwsynvqNCPEIBMBPS8383-79-29 14:22:90792Izabhduv DvjfxdnTAZNAVNFYD0318-26-76 14:22:009.7[facility] BdgfiigFBWWLHPFID5842-32-81 14:22:0061.0[facility] IntcjdiSIBDSNUNZG3794-06-99 14:22:0030.5[facility] TRROFINMEM4466-75-94 14:22:007.1[facility] XnwinbsKYZREGOJGJ0340-75-90 14:22:000.7 [facility] OfcqnfqDPHJQPFQEF8142-00-68 14:22:000.7[facility] HermannHEMATOLOGY 2020-02-19 14:22:0011.5[facility] QqbjqvmJYFUWUWYTM2989-30-84 14:22:005.8[facility] HhjjqrtGRYMENQQSG4078-77-84 14:22:001.3[facility] FfkvpvbUYGFKTEQZN6707-23-16 14:22:000.1[facility] LntmpvoUDEFEBKJRC3690-90-11 14:22:000.1[facility] PARATHYROID LGQLSUJ5467-36-58 14:22:001.11[facility] HermannPARATHYROID PROFILE 2020-02-19 14:22:001.12[facility] HermannCHEM QBFIR8577-42-70 09:08:003.5[facility] HermannCHEM TNTNS9562-83-45 09:08:001.6[facility] HermannCHEM BXAVJ1558-78-20 09:08:98492Kueibbny HermannCHEM IFUYY6971-04-38 09:08:0012[facility] HermannCHEM QGDKK8964-43-78 09:08:000.67[facility] HermannCHEM LIOJT4522-29-15 09:08:99044 [facility] HermannCHEM UUXLA9789-04-18 09:08:003.3[facility] HermannCHEM PANEL 2020-02-18 09:08:72509Pywrqkzh HermannCHEM LJJDF4604-73-23 09:08:0028[facility] HermannCHEM SYAVZ4751-66-56 09:08:008.7[facility] HermannCHEM COEWG5351-45-16 09:08:0010.3[facility] HermannCHEM ZSMVO3360-92-93 09:08:0087[facility] DUWCYNBFLP0124-16-44 09:08:00 Test Item Value Reference Range Interpretation Comments PT (test code = PT) 17.5 s 12.0-14.7 [facility] FmnkurpPDRSCKKYRX0170-08-11 09:08:00 Test Item Value Reference Range Interpretation Comments INR (test code = INR) 1.42 1 0.85-1.17 [facility] PdrmtycZFLSGOGVOX2604-62-14 09:08:00 Test Item Value Reference Range Interpretation Comments PTT (test code = PTT) 82.9 s 22.9-35.8 [facility] OcouzcwPPJCUVKJCD1612-98-62 09:08:000.68[facility] HermannHEMATOLOGY 2020-02-18 09:08:09370Szdbhyrs FjknsgiSEWRYVGYMV3203-19-50 09:08:0016.3[facility] CpqbiztQSZPNGBOFS3799-51-40 09:08:004.72[facility] AuodvbnQXAUOTHYJT5178-08-27 09:08:0011.4[facility] AtqyoflAOZCYTMTXC6032-18-49 09:08:0037.0[facility] DQSSFSFCHT3231-99-35 09:08:0078.4[facility] CjqegguNEJNTWJKDF9782-25-11 09:08:00 Test Item Value Reference Range Interpretation Comments MCH (test code = MCH) 24.1 pg 27.0-31.0 [facility] VbevqspKCOWRLIODI8555-30-54 09:08:0030.7[facility] HermannHEMATOLOGY 2020-02-18 09:08:0018.3[facility] MfuguahVRQUEDCPWS6033-74-30 09:08:21277Cvzylipx ZbnebufIJOIYGWMBD7386-46-48 09:08:009.7[facility] EwnunsuNOEXMGELWI6397-48-16 09:08:0066.2[facility] BrszszqZYAWYQEUZF2546-77-34 09:08:0023.2[facility] RJNTLZSWMB4401-43-54 09:08:009.3[facility] TkftnbjHEZVQUAEVT8757-11-49 09:08:000.8 [facility] WxqhfyaHYNAJJVXKV7549-06-39 09:08:000.5[facility] HermannHEMATOLOGY 2020-02-18 09:08:0010.8[facility] OzngzoaCLJQUIFWFM4286-52-53 09:08:003.8[facility] GwllndyQCLYOMOMKN4880-58-18 09:08:001.5[facility] ZjvjsflJZYAUUFZAF2275-07-87 09:08:000.1[facility] DnqrlsbJLEUSUNMYP0774-90-38 09:08:000.1[facility] MCWCUVAXNM1810-58-64 09:08:001+ *ABN*(02/18/20 4:08 AM)[facility] PARATHYROID MSXBYOE2337-90-43 09:08:001.13[facility] HermannPARATHYROID PROFILE 2020-02-18 09:08:001.12[facility] TnsujnoYMUCYSHLOZ6662-53-15 17:25:00Not Detected (02/17/20 12:25 PM)[facility]BL[facility] RCWZKBG1016-03-47 17:10:00Result Note 4(02/17/20 12:10 PM)[facility] VWUSSJJ8599-94-62 17:10:00 Positive (02/17/20 12:10 PM)[facility] HermannCARDIAC OWMRWJU7227-76-56 17:10:0025 [facility] HermannCHEM AHJES8369-90-06 17:10:003.0[facility] HermannCHEM PANEL 2020-02-17 17:10:17561Xopkulzz HermannCHEM LKURY8103-06-09 17:10:0011[facility]annCHEM ODSJI9992-19-57 17:10:000.68[facility]annCHEM OCTGK1826-39-66 17:10:37478Niuqbgkd HermannCHEM VLLKT0631-44-15 17:10:003.4[facility]annCHEM CGGXI2229-07-11 17:10:60232Vqvpegvf HermannCHEM NBYZH2477-78-31 17:10:0031 [facility]annCHEM AROJB6963-86-09 17:10:008.4[facility]annCHEM PANEL 2020-02-17 17:10:006.4[facility]annCHEM FZYXD1564-89-39 17:10:0087[facility]annCHEM SXSXS5246-49-46 17:10:00<0.05[facility]annCHEM YAHZW8597-36-92 17:10:001.6[facility] QiyyfrcOGMYPZRPRI5845-05-90 17:10:0016.0[facility] ZDZLCQOBYQ4498-68-21 17:10:005.23[facility] QedkfdrBLDHBYWDMC1103-47-05 17:10:00 12.7[facility] EhjddojJSGBWMOVOC9993-62-50 17:10:0041.4[facility]annHEMATOLOGY 2020-02-17 17:10:0079.1[facility] RyyklvcGINKHKULNB8413-06-07 17:10:00 Test Item Value Reference Range Interpretation Comments MCH (test code = MCH) 24.4 pg 27.0-31.0 [facility] KamcekkRHEGWFURUD8221-96-59 17:10:0030.8[facility]annHEMATOLOGY 2020-02-17 17:10:0018.3[facility] FxtaffsXDJOSSHSPG2368-29-72 17:10:84166Begfuyuz TrtolkjGEGCMPAGPO3050-97-33 17:10:0010.1[facility] FrpxtllQRNSERTKMS3471-23-49 17:10:0084.7[facility] YfhssbxIPNVUMHKEZ1107-01-65 17:10:009.3[facility] RQQHHUCBPP7112-41-06 17:10:005.0[facility] DbyjnkeSIXFKPOQPU1354-58-25 17:10:000.5 [facility] YipqdaxNWTHPUYBFP2355-46-51 17:10:000.5[facility]annHEMATOLOGY 2020-02-17 17:10:0013.6[facility] OooumulXWCOUONHAB9566-70-36 17:10:001.5[facility] JknswbbDIRXAJVQDO5221-87-97 17:10:000.8[facility] HjxffntEKFHIZBJYE5404-33-55 17:10:000.1[facility] PatsmerKQVEXA6951-49-53 17:10:19495Tywifokn HermannLIPIDS 2020-02-17 17:10:64180Mppiwzab CztmtusQTWHDO8846-84-97 17:10:0054[facility] GqgwkcxZOZNNK8313-02-69 17:10:00 Test Item Value Reference Range Interpretation Comments CHD Risk (test code = CHD Risk) 2.85 1 3.90-5.80 [facility] RgsxehxCKTJQL6130-53-34 17:10:0069[facility] SnbhyncMECQNF3870-32-75 17:10:00 Test Item Value Reference Range Interpretation Comments VLDL (test code = VLDL) 31 1 [facility] AND AWXJF6020-72-27 03:29:00Yellow *NA*(02/15/20 10:29 PM) [facility] KGDCJ6975-43-71 03:29:00Marked *ABN*(02/15/20 10:29 PM) [facility] OPCUI4826-56-72 03:29:00 Test Item Value Reference Range Interpretation Comments UA Spec Grav (test code = UA Spec 1.015 1 Grav) [facility] VRNAA7250-51-14 03:29:00 Test Item Value Reference Range Interpretation Comments UA pH (test code = UA pH) 7.0 1 5.0-8.0 [facility] QYNTJ0744-94-53 03:29:00Negative *NA*(02/15/20 10:29 PM)[facility] GZBWK6921-82-48 03:29:00Negative (02/15/20 10:29 PM) [facility] LXBBA7523-90-80 03:29:00<1.0[facility] RFDCS1785-54-97 03:29:00Negative (02/15/20 10:29 PM)[facility] CPOGB4107-11-09 03:29:00Negative (02/15/20 10:29 PM)[facility] NMYHZ8234-35-72 03:29:001[facility] VTHMO1998-96-17 03:29:001 [facility] MUGNY8945-50-18 03:29:003[facility]annCHEM PANEL 2020-02-16 02:49:005.8[facility]annCHEM FKVMV6085-50-78 02:49:002.4[facility]annCHEM XQYSL4421-16-08 02:49:0026[facility]annCHEM SQKSA6654-08-64 02:49:0016[facility]annCHEM HSYCD5206-78-38 02:49:06852Iypaphgk HermannCHEM AIMHB8459-86-80 02:49:000.3[facility]annCHEM PXOBT0124-79-21 02:49:00 Test Item Value Reference Range Interpretation Comments B/C Ratio (test code = B/C Ratio) 25 1 6-25 [facility]annCHEM FFUDC7571-58-67 02:49:003.4[facility]annCHEM PANEL 2020-02-16 02:49:00 Test Item Value Reference Range Interpretation Comments A/G Ratio (test code = A/G Ratio) 0.7 1 0.7-1.6 [facility]Glucose mqdxh0135-08-92 13:34:00 Test Item Value Reference Range Interpretation Comments POC-Glucose Meter (test 101 mg/dL 70-110 : TE STED AT [facility] code = 1538) [address] [facility], 770 30: Cloth Pattern Maker/Techni ras ID = [id number] for LENNOX OSBORN Lab Interpretation (test Normal code = 12393-4) [facility] EFNFP6294-04-38 13:34:00 Test Item Value Reference Range Interpretation Comments POC-GLUCOSE METER 101 mg/dL 70-110 : TESTED A T [facility] 6720 (BEAKER) (test code = KLEVER Rogers [facility], 1538) [address]: Cloth Pattern Maker/Techni ras ID = [id number] for LENNOX RAMOS Urine ckokxnx1279-99-19 10:36:00 Test Item Value Reference Range Interpretation Comments Result (test code = See comment 6463-4) ZIA (test code = >100,000 col/mL enteric ZIA) organisms of >3 types. No further workup performed. Multiple organisms suggestive of colonization or contamination. Repeat collection recommended. [facility] [id number] 08:50:00 Test Item Value Reference Range Interpretation Comments POC-GLUCOSE METER 100 mg/dL 70-110 : TESTED A T [facility] 6720 (BEAKER) (test code = [facility] be2 [facility], 1538) [address]: Cloth Pattern Maker/Techni ras ID = [id number] for LENNOX RAMOS POCT-GLUCOSE [id number] 06:33:00 Test Item Value Reference Range Interpretation Comments POC-GLUCOSE METER 184 mg/dL 70-110 H : TESTED A T [facility] 6720 (BEAKER) (test code = [facility] be2 [facility], 1538) [address]1007: Cloth Pattern Maker/Techni ras ID = [id number] for DO TRAMAINE, RACHEL CBC with platelet count + automated [id number] 06:31:00 Test Item Value Reference Range Interpretation [...] 450 K/CU MM MPV (test code = 97465-1) 12.4 fL 9.4-12.3 H nRBC (test code [...] 2801) Lab Interpretation (test code = Abnormal 95013-4) [facility] W/PLT COUNT & AUTO CUUHKRTVWZWN5320-85-56 06:31:00 Test Item Value Reference Range Interpretation [...] PERCENT (BEAKER) (test code = 2801) POCT-GLUCOSE [id number] 18:19:00 Test Item Value Reference Range Interpretation Comments POC-GLUCOSE METER 148 mg/dL 70-110 H : TESTED A T [facility] 6720 (BEAKER) (test code = KLEVER [facility], 1538) 70203: Cloth Pattern Maker/Techni ras ID = [id number] for CINDY NTPAMELAIA Urinalysis w/Microscopic + Reflex to Uisvjfv9867-05-17 15:46:00 Test Item Value Reference Range Interpretation Comments Color, UA (test code = Yellow 5778-6) Clarity, UA (test code = Hazy 5767-9) Specific [place], UA 1.028 1.001-1.035 (test code = 5811-5) pH, UA (test code = 6.0 5.0-8.0 5803-2) Protein, UA (test code = 30 mg/dL Negative A 11486-8) Glucose, UA (test code = Negative Negative 365) Ketones, UA (test code = Negative Negative 2514-8) Bilirubin, UA (test code Negative Negative = 60958-2) Blood, UA (test code = Negative Negative 47436-3) Nitrite, UA (test code = Negative Negative 5802-4) Leukocytes, UA (test code Moderate Negative A = 5799-2) Urobilinogen, UA (test 0.2 mg/dL 0.2-1 code = 40862-4) RBC, UA (test code = 2 /HPF 98714-6) WBC, UA (test code = 28 /HPF 5821-4) Mucus (test code = Occasional 8247-9) Squam Epithel, UA (test 1 /HPF code = 98626-8) Hyaline Casts, UA (test 1 /LPF code = 18168-6) Ca Oxalate Jagruti, UA (test Occasional code = 13506-2) Specimen Source (test code = 2795) ZIA (test code = ZIA) Cloth Pattern Maker ID - [auto]Cloth Pattern Maker ID - [email or web address] Lab Interpretation (test Abnormal code = 86469-2) [facility]/ REFLEX URINE [id number] 15:46:00 Test Item Value Reference Range Interpretation [...] = 518) SOURCE(BEAKER) (test code = 2795) Cloth Pattern Maker ID - [auto]Cloth Pattern Maker ID - hankPOCT-GLUCOSE LFEIS4195-56-56 12:47:00 Test Item Value Reference Range Interpretation Comments POC-GLUCOSE METER 128 mg/dL 70-110 H : TESTED A T [facility] 6720 (BEAKER) (test code = [facility], 1538) 46639: Cloth Pattern Maker/Techni ras ID = [id number] for Elizabeth Valladares POCT-GLUCOSE [id number] 12:34:00 Test Item Value Reference Range Interpretation Comments POC-GLUCOSE METER 131 mg/dL 70-110 H : TESTED A T [facility] 6720 (BEAKER) (test code = [facility], 1538) [address]: Cloth Pattern Maker/Techni ras ID = [id number] for RO DGERS, JAMECA FL, ESOPH, SWALLOW FUNCTION, WITH CINE OR [id number] 12:20:00Reason for exam:->dysphagiaFINAL REPORT EXAMINATION: Modified barium [...] Verified Date/Time: 02/14/2020 12:20:00 Reading Location: [address] Reading Room [place] esoph swallow funct with cine aeunr9762-82-99 12:20:00Interface, External Ris In - 02/14/2020 12:22 [...] MDReport Verified Date/Time: 02/14/2020 12:20:00 Reading Location: [facility] B1 C013T Transitional Reading Room [facility] W/PLT COUNT & AUTO [id number] 04:50:00 Test Item Value Reference Range Interpretation [...] PERCENT (BEAKER) (test code = 2801) POCT-GLUCOSE [id number] 01:00:00 Test Item Value Reference Range Interpretation Comments POC-GLUCOSE METER 261 mg/dL 70-110 H : TESTED A T [facility] 6720 (BEAKER) (test code = KLE[facility], 1538) 89053: Cloth Pattern Maker/Techni ras ID = [id number] for RACHEL MACK POCT-GLUCOSE [id number] 17:38:00 Test Item Value Reference Range Interpretation Comments POC-GLUCOSE METER 396 mg/dL 70-110 H : TESTED A T [facility] 6720 (BEAKER) (test code [facility], = 1538) 37892: Cloth Pattern Maker/Techni ras ID = [id number] for DHRUV LEILA COSME RAD, CHEST, 2 [id number] 12:51:00Reason for exam:->evaluate position of left chest [...] [place] Verified Date/Time: 02/13/2020 12:51:24 Reading Location: [facility] Radiology Reading Room XR chest 2 xwytj2251-30-07 12:51:00Interface, External Ris In - 02/13/2020 12:53 [...] [place] MDReport Verified Date/Time: 02/13/2020 12:51:24Reading Location: [facility] Radiology Reading [facility] [id number] 08:20:00 Test Item Value Reference Range Interpretation Comments POC-GLUCOSE METER 180 mg/dL 70-110 H : Notified RN/MD: TESTED (KATHLEEN) (test code AT [address] = 1538) [facility], [facility] 30: Cloth Pattern Maker/Techni ras ID = [id number] for TSEG GAI, TSIGHEREDA POCT-GLUCOSE [id number] 23:11:00 Test Item Value Reference Range Interpretation Comments POC-GLUCOSE METER 254 mg/dL 70-110 H : Notified RN/MD: (KATHLEEN) (test code = TESTED AT [place] [address] 153) [facility], [address]: Cloth Pattern Maker/Techni ras ID = [id number] for LATHBRIDGE, MARIA ICE POCT-GLUCOSE [id number] 17:32:00 Test Item Value Reference Range Interpretation Comments POC-GLUCOSE METER 386 mg/dL 70-110 H : Notified RN/MD: TESTED (KATHLEEN) (test code AT [address] = 1538) [facility], [facility] 30: Cloth Pattern Maker/Techni ras ID = [id number] for TSEG GAI, TSIGHEREDA RAD, CHEST, 1 VIEW, NON [id number] 14:59:00Reason for exam:->concern for aspirationShould this be [...] Maxwell Verified Date/Time: 02/12/2020 14:59:34 Reading Location: [address] Body Reading Room XR chest 1 view portable / [id number] 14:59:00Interface, External Ris In - 02/12/2020 3:01 [...] changes. No acute osseous abnormality. Signed: Mehnaz Maxwellort Verified Date/Time: 02/12/2020 14:59:34 Reading Location: [facility] C013Y CT Body Reading Room Electronicallysigned by: MEHNAZ MAXWELL MD on 02/12/2020 02:59 [facility] T4 If Wpmmoqrwe1127-92-41 13:50:00 Test Item Value Reference Range Interpretation Comments TSH (test code = 24655-4) 1.158 0.350- 4.940 uIU/mL Lab Interpretation (test code = Normal 83969-2) [facility] CenterTSH/FREE T4 IF [id number] 13:50:00 Test Item Value Reference Range Interpretation Comments THYROID STIMULATING HORMONE 1.158 uIU/mL 0.350-4.940 (BEAKER) (test code = 772) Comprehensive metabolic wdgoo0643-81-03 12:44:00 Test Item Value Reference Range Interpretation Comments Protein, Total (test 4.8 6.0- 8.3 gm/dL L Speci men slightly code = 2885-2) hemolyzed Albumin (test code = 2.9 g/dL 3.5-5 L Specime n slightly 80628-2) hemolyzed Alkaline Phosphatase 174 U/L 40-150 H (test code = 6768-6) Total Bilirubin (test 0.3 mg/dL 0.2-1.2 Specim en slightly code = 1975-2) hemolyzed Sodium (test code = 140 meq/L 108-969 4554-2) Potassium (test code = 3.6 meq/L 3.5-5.1 [...] (test code = 8.2 mg/dL 8.4-10.2 L 47262-1) AST (test code = 32 U/L 5-34 Specimen sl ightly 1920-8) hemolyzed ALT (test code = 31 U/L 6-55 Specimen sl ightly 1742-6) hemolyzed EGFR (test code = 127 mL/min/1.73 [place] [address]-9) NOT ACCURATE CREATININE CLEARANCE IN PREDICTING GLOMERULAR FILTRATION RATE . ESTIMATED GFR I S NOT APPLICABLE FOR DIALYSIS PATIEN TS. Lab Interpretation Abnormal (test code = 08542-9) [facility] CenterCOMPREHENSIVE METABOLIC [id number] 12:44:00 Test Item Value Reference Range Interpretation [...] 29-200 Lab Interpretation (test code = Normal 53900-1) [facility] (LDH)2020-02-12 12:29:00 Test Item Value Reference Range Interpretation Comments LDH (test code = 2532-0) 401 U/L 125-220 H Spe cimen slightly hemolyzed Lab Interpretation (test Abnormal code = 68026-9) [facility] CenterLACTATE DEHYDROGENASE (LDH)2020-02-12 12:29:00 Test Item Value Reference Range Interpretation Comments LACTATE DEHYDROGENASE 401 U/L 125-220 H Specim en slightly (BEAKER) (test code = hemoly zed 635) CREATINE KINASE (CK)2020-02-12 12:29:00 Test Item Value Reference Range Interpretation Comments CREATINE KINASE TOTAL (BEAKER) (test 47 U/L 29-200 code = 380) Vitamin [id number] 12:28:00 Test Item Value Reference Range Interpretation Comments Vitamin B12 (test code = 2132-9) 486 pg/mL 213-816 Lab Interpretation (test code = Normal 13849-6) [facility] CenterVITAMIN [id number] 12:28:00 Test Item Value Reference Range Interpretation Comments VITAMIN B12 (BEAKER) (test code = 486 pg/mL 213-816 774) POCT-GLUCOSE [id number] 12:20:00 Test Item Value Reference Range Interpretation Comments POC-GLUCOSE METER 147 mg/dL 70-110 H : TESTED A T [facility] 6720 (BEAKER) (test code [facility], = 1538) [address]: Cloth Pattern Maker/Techni ras ID = [id number] for LEILA LEDESMA SARS-CoV2/RT-PCR (Asymptomatic ONLY)2020-02-12 12:08:00 Test Item Value Reference Range Interpretation Comments SARS-COV2/RT-PCR Negative Not Detected, (test code = Negative, See 32044-7) external report for linked test SARS-COV-2 [facility]ACE PERFORMING LAB (test code = 99646-6) ZIA (test code = Negative result for [...] of the Act. Fact Sheet for Healthcare Providers:https://www.[employer]/sites/default/f humble/product/documents/F act_Sheet_HC_Providers_L qcv_GIBG-BmR-2.pdf Fact Sheet for Healthcare Patients:https://www.[employer]/sites/default/fi les/product/documents/Fa ct_Sheet_Patients_Lyra_S ARS-CoV-2.pdf Performing Laboratory:[facility] [place] [address] [facility] CenterARS-[facility]OV2/[facility]-PCR ([facility])2020-02-12 12:08:00 Test Item Value Reference Range Interpretation Comments SARS-COV2/RT-PCR (test Negative Not Detected, Negative, code = 0170900) See external report for linked test SARS-COV-2 PERFORMING LAB [facility] (test code = 3094647) Negative result for this test determines that [...] 564(g) of the Act.Fact Sheet for Healthcare Providers:https://www.[employer]/sites/default/files/product/documents/Fact_Shee n_WK_Kfkxwigrh_Zklj_GOBX-StO-7.pdfFact Sheet for Healthcare Patients:https://www.[employer]/sites/default/files/product/ documents/Vyxc_Dwvjw_Owbjinip_Xdwc_CNAO-LbF-8.pdfPerforming Laboratory:[facility] [facility].[place], [place] [address]URLZ-QKNSKSU METER 2020-02-12 09:52:00 Test Item Value Reference Range Interpretation Comments POC-GLUCOSE METER 74 mg/dL 70-110 : TESTED A T [facility] 6720 (BEELBA) (test [facility] = 1538) [address]: Cloth Pattern Maker/Techni ras ID = [id number] for LEILA LEDESMA CBC W/PLT COUNT & AUTO CVWGIKLUYKEV6227-73-42 09:04:00 Test Item Value Reference Range Interpretation [...] 0-1 PERCENT (BEAKER) (test code = 2801) SYNNNHVUFQ8835-40-23 17:18:00Not Detected (12/20/19 12:18 PM)[facility] CARDIAC SVYOXGY4348-55-22 10:06:000.02[facility] HermannCHEM QHYTJ1476-75-34 10:06:56899Egdppoeu HermannCHEM EFSZJ4570-85-53 10:06:0010[facility]annCHEM AATGM1691-95-32 10:06:000.64[facility]annCHEM JDGFL1867-72-35 10:06:42014 [facility]annCHEM KHHZA9215-54-25 10:06:003.9[facility]annCHEM PANEL 2019-12-18 10:06:64459Dlxiuejp HermannCHEM FYOZY5657-59-70 10:06:0028[facility] HermannCHEM AFBKB1132-40-77 10:06:0010.9[facility] HermannCHEM QCPJY2555-58-45 10:06:008.3[facility]annCHEM PFRRA4584-73-23 10:06:0089[facility]annCHEM CMQFU1765-13-20 10:06:002.1[facility]annCHEM SVXCV5123-41-45 10:06:003.2 Memorial KfbstfwQUWTWYNSOL5911-60-07 10:06:009.9[facility] HermannHEMATOLOGY 2019-12-18 10:06:003.09[facility] VusjqofZVCYGHHTAZ5157-91-28 10:06:009.1[facility] SxdmsfsAWNMYKXXUQ4941-88-09 10:06:0028.9[facility] LwpkdrbUVMFZSEOQB2838-72-46 10:06:0093.7[facility] WwbuhpvEXQEKPUVOA8838-69-69 10:06:00 Test Item Value Reference Range Interpretation Comments MCH (test code = MCH) 29.4 pg 27.0-31.0 [facility] GevtblmEOVHXBEKMO0260-75-52 10:06:0031.4[facility] HermannHEMATOLOGY 2019-12-18 10:06:0016.7[facility] TeekfeaIZUWBYCOTU5382-96-42 10:06:78636Ctsjkdlz WdeteecOUULSVLYTR2792-97-81 10:06:0010.2[facility] LvehetgSZOUZXKKQH0522-75-75 10:06:0066.2[facility] WuolredJOSEYMCMZA7830-01-89 10:06:0023.0[facility] DWQOSSIEZL5955-11-51 10:06:008.2[facility] ByhqrapCXWAZKCTYO1420-80-53 10:06:001.2 [facility] YzmumcsFDGFLTAOMP1472-96-58 10:06:001.4[facility] HermannHEMATOLOGY 2019-12-18 10:06:006.5[facility] IkfsdftXETKDFVOXP9747-93-09 10:06:002.3[facility] ClxkfucEDUDXUYPHJ3436-10-17 10:06:000.8[facility] ZvqgajwVGBVBETHJB4159-90-51 10:06:000.1[facility] LjopkdoQSEGFDAPOM1060-73-72 10:06:000.1[facility]annURINE AND QRWZZ2777-43-92 10:06:00Dark Yellow *NA*(12/18/19 5:06 AM)[facility] URINE AND ETOCD4024-11-24 10:06:00Slight *ABN*(12/18/19 5:06 AM)[facility] URINE AND HSNYO6383-11-71 10:06:00 Test Item Value Reference Range Interpretation Comments UA Spec Grav (test code = UA Spec 1.018 1 Grav) [facility]annURINE AND REUGI9070-70-91 10:06:00 Test Item Value Reference Range Interpretation Comments UA pH (test code = UA pH) 6.0 1 5.0-8.0 [facility]annUR[facility] AND PNSEA2551-67-23 10:06:00Negative *NA*(12/18/19 5:06 AM) [facility] AND SREGW0776-25-83 10:06:00Negative (12/18/19 5:06 AM) [facility] AND JSLVF5328-36-85 10:06:004.0[facility]annUR[facility] AND TDSNR7835-39-42 10:06:00Negative (12/18/19 5:06 AM)[facility] AND SJLNF9910-06-41 10:06:00Negative (12/18/19 5:06 AM)[facility] AND DRGGM4844-04-04 10:06:0010[facility]annURINE AND WNNLT6854-91-33 10:06:002 [facility] AND CUJGB9822-74-43 10:06:007[facility]annCHEM PANEL 2019-12-17 16:05:95615Jwafshnk HermannCHEM JDJPN8120-24-87 16:05:0011[facility]annCHEM SDRCL7728-10-15 16:05:000.80[facility] HermannCHEM EODDO4282-32-34 16:05:85724Tnvazlwb HermannCHEM VWZDU6744-61-86 16:05:003.4[facility] HermannCHEM JNOAS0512-41-28 16:05:34260Seixeuyd HermannCHEM CPGXZ5751-60-90 16:05:0031 [facility]annCHEM VNDJA5456-64-86 16:05:008.2[facility] HermannCHEM PANEL 2019-12-17 16:05:007.4[facility] HermannCHEM YHLGV5705-71-29 16:05:0074[facility] HermannCHEM OCPCZ5426-84-13 16:05:001.9[facility] HermannCHEM AJNAR4749-66-91 16:05:002.8[facility] MyvlqdeIIYCWGYQIB7450-66-65 16:05:008.9[facility] DJWMRUVBLV0481-43-49 16:05:003.03[facility] ZozmlecPTENOEDVSP3723-31-02 16:05:00 9.3[facility] XcykbubMTGFWOMPWA1561-12-33 16:05:0028.4[facility] HermannHEMATOLOGY 2019-12-17 16:05:0093.8[facility] XzalmvrUSCHMIPWVU5766-54-55 16:05:00 Test Item Value Reference Range Interpretation Comments MCH (test code = MCH) 30.7 pg 27.0-31.0 [facility] BiptpafZIYNKTBZGT6031-73-45 16:05:0032.8[facility] HermannHEMATOLOGY 2019-12-17 16:05:0016.9[facility] ZsocktrGISCTNIBYV2397-44-98 16:05:79110Mpgcouqx VtgffraRJVNWBMHUN2311-63-92 16:05:009.7[facility] EutpguyBOUDYUEIYZ7481-39-27 16:05:0071.0[facility] SmtxzfnQNJBVKGVRN4623-22-55 16:05:0016.3[facility] MXDNBEOVVP3030-56-48 16:05:006.5[facility] KvfzrjzVRXVWRNCNX3989-01-71 16:05:004.0 [facility] TnbntqdEMTXXOMEMY2894-45-05 16:05:002.2[facility] HermannHEMATOLOGY 2019-12-17 16:05:006.3[facility] QsxvmywRVGXCCJUQZ6733-11-06 16:05:001.4[facility] DqwygujULXFEIOWEF9546-81-11 16:05:000.6[facility] FtqudedFHXLJNVKKT0201-03-22 16:05:000.4[facility] TffkhssIKYHYFYBUJ7274-87-81 16:05:000.2[facility] CARDIAC DRFQFIK8700-81-07 05:24:000.03[facility] HermannCHEM CWVNO5259-95-24 05:24:54746Bwmhivqp HermannCHEM YXYDE9452-94-71 05:24:0012[facility] HermannCHEM ZEWOF7935-72-72 05:24:000.59[facility] HermannCHEM QBLLJ9413-65-56 05:24:79998 [facility]annCHEM RKOYC1331-05-13 05:24:003.9[facility] HermannCHEM PANEL 2019-12-15 05:24:49194Rauqmjzu HermannCHEM GSQCL5418-34-24 05:24:0034[facility] HermannCHEM WCJSZ1050-43-71 05:24:008.3[facility] HermannCHEM QMBDC2183-29-50 05:24:008.9[facility] HermannCHEM CRBFI9017-74-21 05:24:0092[facility] HermannCHEM MVCOZ9914-14-50 05:24:002.1[facility] HermannCHEM ILYIK0209-61-73 05:24:002.4 [facility] WcuexdfOWORTPZZLC1552-29-43 05:24:0011.9[facility] HermannHEMATOLOGY 2019-12-15 05:24:003.25[facility] TmdqdkdOYSKEHZIIW5093-95-78 05:24:009.5[facility] UrapddeXRKCDUOSWY1557-26-69 05:24:0030.4[facility] UfkjwvnVBEZXRHGCF2398-34-92 05:24:0093.5[facility] SuvtcukJNBJQOYYWX9156-47-91 05:24:00 Test Item Value Reference Range Interpretation Comments MCH (test code = MCH) 29.3 pg 27.0-31.0 Memorial BdgfccuKQZDFHFQRD6570-51-48 05:24:0031.4[facility] HermannHEMATOLOGY 2019-12-15 05:24:0017.3[facility] SwtbvykRZMATQBZUG1318-65-45 05:24:29619Kajclqag GufurgdAMPFGUKKHT6115-26-21 05:24:0010.2[facility] MbrbsxaENKUPRVABY2699-10-86 05:24:0069.3[facility] MjkgrxrCATMCOLXRR3523-50-70 05:24:0018.5[facility] DBDURSESGC7061-38-53 05:24:007.6[facility] UqpwahuSGWXADWXMA1945-96-19 05:24:003.8 [facility] UdrcnmjSSUZKFQZNA8779-85-77 05:24:000.8[facility] HermannHEMATOLOGY 2019-12-15 05:24:008.3[facility] HqguagaPWKQPDTEFG5345-11-45 05:24:002.2[facility] YbfsklvCIYMOVZCCB5965-58-60 05:24:000.9[facility] ChhfchbZOZZCLMFFB8343-48-36 05:24:000.5[facility] LfoaydvEUMPMDDBHZ6810-77-52 05:24:000.1[facility] TCNCPNPIVH5126-68-95 11:58:00Normal (12/14/19 6:58 AM)[facility]annHEMATOLOGY 2019-12-14 11:58:00Normal (12/14/19 6:58 AM)[facility]annCHEM QSVKO1478-86-45 15:50:005.2[facility] HermannCHEM PSNMP2509-80-73 15:50:002.2[facility] HermannCHEM IXGWO6375-78-61 15:50:0022[facility] HermannCHEM OQWYZ9105-14-87 15:50:0013 [facility]annCHEM GDGPR9543-50-08 15:50:56079Ptvbdrjn HermannCHEM PANEL 2019-12-11 15:50:000.9[facility] HermannCHEM OJGXT5886-68-73 15:50:00 Test Item Value Reference Range Interpretation Comments B/C Ratio (test code = B/C Ratio) 25 1 6-25 [facility]annCHEM QKNBK7723-39-05 15:50:003.0[facility] HermannCHEM PANEL 2019-12-11 15:50:00 Test Item Value Reference Range Interpretation Comments A/G Ratio (test code = A/G Ratio) 0.7 1 0.7-1.6 [facility] HermannBODY TKLAER1270-77-42 17:45:00Positive *ABN*(12/09/19 12:45 PM) [facility] EeztbsfWLXGNJXLEK8833-18-99 16:46:00Normal (12/09/19 11:46 AM)[facility] WhmyvkgBTXKWPPJHO0245-02-36 16:46:00Normal (12/09/19 11:46 AM)[facility] CHEM UXFBE3235-26-86 05:23:004.5[facility] HermannCHEM QDLJW4832-64-88 05:23:002.5 [facility]annCHEM AVGIG1919-46-04 05:23:0027[facility] HermannCHEM PANEL 2019-12-07 05:23:0011[facility] HermannCHEM XCONN6309-27-06 05:23:0082[facility] HermannCHEM ZWUDZ3397-11-51 05:23:000.8[facility] HermannCHEM KIREU6564-44-40 05:23:000.3[facility] HermannCHEM KEQML6484-90-96 05:23:000.5[facility] HermannCHEM TYNVI8285-18-73 05:23:002.0[facility] HermannCHEM NBDSN1379-12-26 05:23:00 Test Item Value Reference Range Interpretation Comments A/G Ratio (test code = A/G Ratio) 1.2 1 0.7-1.6 [facility]annPARATHYROID YFOZOZI9673-52-37 05:23:001.05[facility] PARATHYROID MMXLRCH1123-48-19 05:23:001.09[facility] WmqhvteXLUJKSJWKZ2086-12-29 05:37:00 Test Item Value Reference Range Interpretation Comments PTT (test code = PTT) 31.1 s 22.9-35.8 [facility] LtzcvcpTLLRAHHEQT3253-02-63 05:37:00 Test Item Value Reference Range Interpretation Comments PT (test code = PT) 15.3 s 12.0-14.7 [facility] KzygebhTEYXUYYUMH2361-90-37 05:37:00 Test Item Value Reference Range Interpretation Comments INR (test code = INR) 1.20 1 0.85-1.17 [facility]annPARATHYROID VFFUDSL6650-40-06 05:21:001.06[facility] PARATHYROID ZIAFXMC9786-73-08 05:21:001.10[facility]annBLOOD BANK RESULTS 2019-12-05 22:53:00Product available (12/05/19 5:53 PM)[facility]annHEMATOLOGY 2019-12-05 22:43:00See Note 1(12/05/19 5:43 PM)[facility] HermannHEMATOLOGY 2019-12-05 22:43:001+ *ABN*(12/05/19 5:43 PM)[facility]annBLOOD BANK RESULTS 2019-12-05 22:21:00Product available (12/05/19 5:21 PM)[facility] [employer] NetworkannBLOOD BANK XFAICAI5250-38-05 06:02:00Negative (12/05/19 1:02 AM)[facility] CIWGUCC0914-65-54 06:02:00Result Note 5(12/05/19 1:02 AM)[facility] SSHCAUBQFQ8213-25-81 06:02:00 Test Item Value Reference Range Interpretation Comments PT (test code = PT) 12.8 s 12.0-14.7 [facility] XdoudfkTEPHJRQMNZ6018-64-51 06:02:00 Test Item Value Reference Range Interpretation Comments INR (test code = INR) 0.96 1 0.85-1.17 [facility] MulsdfsSOOJMBQHIW8857-65-31 06:02:00 Test Item Value Reference Range Interpretation Comments PTT (test code = PTT) 28.3 s 22.9-35.8 [facility]annCHEM TBETW5902-65-53 09:52:37504Fgknlqtr HermannCHEM PANEL 2019-12-01 09:52:0016[facility]annCHEM MJOXD8751-35-68 09:52:000.75[facility]annCHEM XJCFT7158-65-47 09:52:46806Zqdgnqdj HermannCHEM ZLINP4530-16-59 09:52:003.7[facility]annCHEM LBXHC1795-03-28 09:52:40814Kyxzvxrl HermannCHEM SGKLB6551-24-03 09:52:0029[facility]annCHEM YHJCC8550-51-60 09:52:008.3 [facility]annCHE[facility] RHQXR0217-68-32 09:52:0010.7[facility]annCHEM PANEL 2019-12-01 09:52:0080[facility] ZnbvaxoUPDVMEIIFA9710-90-71 09:52:0011.0[facility] HerpvoxVVUIPKXXAN7759-58-48 09:52:004.45[facility] AgyuvxwWHJAQAEYJN3644-05-28 09:52:0013.7[facility] OgngfteATGCJUYPAM8183-07-40 09:52:0041.0[facility] EYCXMMUAQB4578-34-14 09:52:0092.1[facility] XmhppdpSOFEVGUZVP3236-82-82 09:52:00 Test Item Value Reference Range Interpretation Comments MCH (test code = MCH) 30.7 pg 27.0-31.0 [facility] YyvtxseTSWINDLIOQ4150-32-07 09:52:0033.4[facility]annHEMATOLOGY 2019-12-01 09:52:0016.7[facility] OyzazdhZQXEYAJGVF3511-93-39 09:52:47191Vucbncsm ModprfcMICRYZAGNH1649-22-58 09:52:009.6[facility] JbsstogYRAGBVGGSF4138-74-24 09:52:0067.9[facility] KllayiyISNCCQJQWL5915-87-50 09:52:0020.7[facility] SASVGIIQVG5050-83-87 09:52:009.8[facility] FrsjzvhINDFYWCDMT6065-54-02 09:52:000.7 [facility] MbciscbICFKBWFBJO3718-93-69 09:52:000.9[facility]annHEMATOLOGY 2019-12-01 09:52:007.4[facility] QcpvoyqYGXMYWCCQY2268-23-83 09:52:002.3[facility] SlrwnzqWBGIGRLWHA3685-64-91 09:52:001.1[facility] MfgkyrwKKLHNVGHIC7914-19-09 09:52:000.1[facility] PfaucekTDFSBQUXRG7519-41-69 09:52:000.1[facility]annURINE AND YOAEQ3923-48-53 01:14:00Light Yellow *NA*(11/30/19 8:14 PM)[facility] URINE AND AUKJZ9713-26-86 01:14:00Clear (11/30/19 8:14 PM)[facility] KGYDV3066-49-40 01:14:00 Test Item Value Reference Range Interpretation Comments UA Spec Grav (test code = UA Spec 1.012 1 Grav) [facility] [id number] 01:14:00 Test Item Value Reference Range Interpretation Comments UA pH (test code = UA pH) 7.0 1 5.0-8.0 [facility] [id number] 01:14:00Negative *NA*(11/30/19 8:14 PM) [facility] TICFV3741-68-35 01:14:00Small *ABN*(11/30/19 8:14 PM) [facility] VXUUI7379-31-48 01:14:00<1.0[facility] ZGLIZ2270-84-03 01:14:00Negative (11/30/19 8:14 PM)[facility] BKKVG2651-84-15 01:14:00Negative (11/30/19 8:14 PM)[facility] STOOL 2019-12-01 01:14:00<1[facility] HFSCB7511-27-39 01:14:001 [facility]annCHEM QPYLA9760-58-63 11:13:95781Yzpbahff HermannCHEM PANEL 2019-11-30 11:13:0022[facility]annCHEM WWUPG2638-74-60 11:13:000.83[facility]annCHEM LJGSI7501-39-84 11:13:80628Eslhowjn HermannCHEM ZSPSD7418-58-23 11:13:005.3[facility]annCHEM XKWCI1626-95-96 11:13:30585Fzfcfhny HermannCHEM VLTZH4052-55-24 11:13:0028[facility]annCHEM PEVXH9102-86-17 11:13:007.8 [facility]annCHEM OTZFH0622-43-84 11:13:0012.3[facility] HermannCHEM PANEL 2019-11-30 11:13:0071[facility] DxdgtlxHRQHQBRUGR7854-63-91 11:13:0010.6[facility] DqukbphQFLCUPGZEZ3173-62-03 11:13:004.40[facility] OarmfetEYQXCAQHML8012-45-31 11:13:0013.0[facility] KzgqnlnZCOXBDLPZP9903-03-26 11:13:0040.0[facility] KNGTNAIQWV0608-79-02 11:13:0091.0[facility] SjfookgAXUEGBQPLA5146-23-44 11:13:00 Test Item Value Reference Range Interpretation Comments MCH (test code = MCH) 29.5 pg 27.0-31.0 [facility] HounuxmDNYMWDRCJA6154-43-32 11:13:0032.4[facility] HermannHEMATOLOGY 2019-11-30 11:13:0016.5[facility] GtzlesrLOMCUDDKZR9306-48-10 11:13:51697Oknzdmjs HhkmyxcVUCLRYQQUK4292-61-63 11:13:0010.0[facility] XybwvazLSIWOZHYFH4927-97-20 11:13:00 Test Item Value Reference Range Interpretation Comments PT (test code = PT) 13.3 s 12.0-14.7 [facility] PetaoqgGVCSVHLCVF6487-37-64 11:13:00 Test Item Value Reference Range Interpretation Comments INR (test code = INR) 1.01 1 0.85-1.17 [facility] EopeusgYLSYHGQJLM4584-94-62 11:13:00 Test Item Value Reference Range Interpretation Comments PTT (test code = PTT) 29.5 s 22.9-35.8 [facility] RllwdrzKWVPKJWJBW4433-43-51 11:13:0059.5[facility] HermannHEMATOLOGY 2019-11-30 11:13:0029.2[facility] JywhmkyFQVHUYKDZU8018-75-51 11:13:009.3[facility] UkqkjbgZZXVMEOXIK6952-95-56 11:13:001.0[facility] HygywayCDIYXAWMDF9024-48-49 11:13:001.0[facility] DvovjpuOLYSMXLMNS9694-13-59 11:13:006.3[facility] XIUEPXSFHP8541-39-52 11:13:003.1[facility] HfqtwnkHOOXVLVYPT9142-05-35 11:13:001.0 [facility] XvmlmwhHHDQEQXXKE6665-25-86 11:13:000.1[facility] HermannHEMATOLOGY 2019-11-30 11:13:000.1[facility]BL[facility]OD BANK ZPOESEZ0439-89-76 09:04:00 Negative (11/29/19 4:04 AM)[facility] HermannCHEM FSYGC9681-90-13 09:04:0097 [facility]annCHEM MBSRF0697-00-29 09:04:0026[facility] HermannCHEM PANEL 2019-11-29 09:04:000.90[facility] HermannCHEM UKUNV8541-79-55 09:04:11842Ktxrwewg HermannCHEM BPYGV1724-68-61 09:04:003.9[facility] HermannCHEM HLHMN9469-69-11 09:04:36268Ymshaavf HermannCHEM GGDFK6800-13-86 09:04:0032[facility]annCHEM ZAICS5372-30-66 09:04:008.7[facility]annCHEM KSUTV5133-91-03 09:04:005.9 [facility]annCHEM OALMO5100-25-15 09:04:0064[facility]annHEMATOLOGY 2019-11-29 09:04:00 Test Item Value Reference Range Interpretation Comments PT (test code = PT) 13.6 s 12.0-14.7 [facility] VkyneyxLDTQAOAPNY1128-77-04 09:04:00 Test Item Value Reference Range Interpretation Comments INR (test code = INR) 1.04 1 0.85-1.17 [facility] ZaytnznYCNCKNNNGM1673-95-51 09:04:00 Test Item Value Reference Range Interpretation Comments PTT (test code = PTT) 30.9 s 22.9-35.8 [facility] PgmneuvOCDRQNLLBO4959-43-99 09:04:0010.6[facility] HermannHEMATOLOGY 2019-11-29 09:04:004.50[facility] ErglmudMQMSOOXDJO4110-89-98 09:04:0013.5[facility] OjwdysiANLVXYZSIH9894-58-54 09:04:0040.4[facility] ObnxrvbGYKAGZSZWI3561-42-51 09:04:0089.8[facility] OevgkfaGKZMRHJHPG0321-17-59 09:04:00 Test Item Value Reference Range Interpretation Comments MCH (test code = MCH) 30.0 pg 27.0-31.0 [facility] PxqikgxUBWXGOZRLC2497-98-81 09:04:0033.4[facility] HermannHEMATOLOGY 2019-11-29 09:04:0016.7[facility] YqqabgcBHGBAIJTGZ7183-44-75 09:04:91355Exxhlqps EgpglecQPOLVNUSAM8293-81-25 09:04:009.5[facility] HpysjutBRQEGSCERL6299-04-12 09:04:0065.7[facility] IgwyawyGXSHQKSORC6890-24-57 09:04:0024.6[facility] NDAHECNLKX5888-68-24 09:04:008.2[facility] QmdzyhbOWXTKWDJGL4546-78-38 09:04:000.8 [facility] LlzqnuwKTMZTTETLG3756-06-98 09:04:000.7[facility] HermannHEMATOLOGY 2019-11-29 09:04:006.9[facility] QhqbvztHGSVWHYNQG4404-92-33 09:04:002.6[facility] DjebquyPISHCMKIYT2880-87-81 09:04:000.9[facility] AgditttINNZBGUKFW9302-76-72 09:04:000.1[facility] NfinvlqBLRDABEFNQ9577-36-81 09:04:000.1[facility] CGGSDWOTPA3242-47-78 21:00:00Not Detected (11/27/19 4:00 PM)[facility] HermannCHEM EWBAW6846-78-63 09:32:23574Mfpebwnc HermannCHEM WRFJW4357-35-19 09:32:0024 [facility]annCHEM CGNDC9211-76-47 09:32:000.60[facility] HermannCHEM PANEL 2019-11-27 09:32:70287Xkhawylx HermannCHEM SKULI4928-51-83 09:32:003.4[facility] HermannCHEM ADXVD4552-68-22 09:32:81852Iqobcipd HermannCHEM DRYUI4863-66-88 09:32:0029[facility] HermannCHEM HOVIB1593-64-24 09:32:008.3[facility] HermannCHEM YDFXF4801-93-28 09:32:0010.4[facility] HermannCHEM YKMRK7311-65-04 09:32:0091 [facility] ShbtsthDLDIFBHSQM4746-71-81 09:32:0010.2[facility] HermannHEMATOLOGY 2019-11-27 09:32:004.57[facility] KjnmftdOMADOSCLIY8854-55-81 09:32:0013.6[facility] QvbuwdtMBESDLDCVK0620-00-66 09:32:0041.4[facility] XyhsnvdNALAZEQVWE8368-08-19 09:32:0090.4[facility] GmpptkbRALNMXNJOV4488-93-86 09:32:00 Test Item Value Reference Range Interpretation Comments MCH (test code = MCH) 29.8 pg 27.0-31.0 [facility] UkkipzeEKJLBIOAVG0596-93-69 09:32:0032.9[facility] HermannHEMATOLOGY 2019-11-27 09:32:0016.7[facility] ZnieuroZLGYYXAJFC1510-96-19 09:32:52621Fffmzslv IyapibrFSAZJVYAXB7131-07-73 09:32:009.8[facility] FbhzkktTBWYSA4921-50-43 09:18:00 167[facility] SpqzhmwMMBHWQ7586-53-49 09:18:24825Pvhcddck GrjbwvaHJBBWD6249-87-19 09:18:0050[facility] FytrjmqXZUVQM5368-72-40 09:18:00 Test Item Value Reference Range Interpretation Comments CHD Risk (test code = CHD Risk) 3.02 1 3.90-5.80 [facility] XkfjzttFJBUIQ8423-40-34 09:18:0068[facility] JqbkpqsTHBXBT4883-70-88 09:18:00 Test Item Value Reference Range Interpretation Comments VLDL (test code = VLDL) 33 1 [facility] HermannSPECIAL SLLEIMMVE4775-60-48 09:18:008.5[facility] FCMHVMWMTX9590-66-72 03:47:000.45[facility] HermannCHEM UTPFV4235-74-31 12:04:00 132[facility] HermannCHEM AEBUE3616-57-46 12:04:0019[facility] HermannCHEM PANEL 2019-11-24 12:04:000.76[facility] HermannCHEM FOXSP8918-17-15 12:04:24926Gvbvpckj HermannCHEM WWJLS3760-94-71 12:04:003.7[facility] HermannCHEM IDTRG9926-70-19 12:04:96099Dnfkmajv HermannCHEM QIDXE5263-87-26 12:04:0027[facility]annCHEM PRFUR2471-24-14 12:04:009.7[facility] HermannCHEM VRNQJ7122-93-33 12:04:008.7 [facility]annCHEM XETNZ7239-34-41 12:04:0079[facility] HermannHEMATOLOGY 2019-11-24 12:04:0090.7[facility] AveyhgoIGLUSEDWZE6925-40-48 12:04:006.4[facility] YgipbfnMSMJDZDZPZ9468-56-38 12:04:002.1[facility] UakpfopLZVPHBPAUG8099-23-21 12:04:000.3[facility] HedubljZWOXHYMUKH0381-97-63 12:04:000.5[facility] SJWSZCRHZC8570-20-80 12:04:0015.1[facility] UbifflgDSNIJLMPNA8800-88-84 12:04:00 1.1[facility] PmvvxqjGHOTQBNTXB3521-88-24 12:04:000.3[facility] HermannHEMATOLOGY 2019-11-24 12:04:000.1[facility] ZokxxvdBDQLOILAIY6915-95-53 12:04:0016.7[facility] ZcxlfhiQQKXQDASKD8964-42-16 12:04:005.00[facility] JllyhmiQFWAUTHGHT4734-35-91 12:04:0015.1[facility] FdglqcuORZLTHDDWR8361-73-76 12:04:0045.1[facility] WBFVWCQSDO3578-26-77 12:04:0090.2[facility] YjbwtdsVDBEVTEVEF6473-94-54 12:04:00 Test Item Value Reference Range Interpretation Comments MCH (test code = MCH) 30.1 pg 27.0-31.0 [facility] MmhfbzcBFWKQCLSVL9837-68-66 12:04:0033.4[facility] HermannHEMATOLOGY 2019-11-24 12:04:0016.3[facility] BqqrymlEZKEHMQGHI1182-84-99 12:04:89884Tzlvraio WzjnckyBMMQOLBTQP6396-31-93 12:04:009.6[facility] HermannCHEM XBKWT7590-30-61 16:14:94915Cbaorybi HermannCHEM FKNHU3571-03-08 16:14:0018[facility] HermannCHEM ASERQ0442-38-38 16:14:000.96[facility] HermannCHEM SBGLH0795-66-19 16:14:83865 [facility]annCHEM FIMVI9288-10-64 16:14:004.3[facility] HermannCHEM PANEL 2019-11-23 16:14:37334Dziciygn HermannCHEM PZDOZ3427-04-49 16:14:0026[facility] HermannCHEM BACTL3921-50-91 16:14:0010.[facility] HermannCHEM SIMXF5082-33-22 16:14:008.8[facility] HermannCHEM LDBRR5967-25-55 16:14:0059[facility] MSNCFIQXTP0251-05-09 09:51:0081.3[facility] XepwtgzHELHVMXXKO0023-97-20 09:51:00 11.5[facility] IbiwcgsZAOXQTSLSU9077-89-22 09:51:005.4[facility] HermannHEMATOLOGY 2019-11-23 09:51:000.8[facility] IbmsobdWERJNNQZCD9137-08-24 09:51:001.0[facility] NepmxokMCYXGUWBMF5510-47-82 09:51:0015.8[facility] TqhdqjtJMEDOFAXJE3820-19-40 09:51:002.2[facility] PbiazetYTKRRPKBSC8401-42-35 09:51:001.1[facility] OFFZSKGAIE0508-86-44 09:51:000.2[facility] VdzwmzbBSWLDCUSOQ7059-48-98 09:51:000.2 [facility] DpnbxwmZCIXKONMZZ2988-16-72 09:51:0019.4[facility] HermannHEMATOLOGY 2019-11-23 09:51:005.40[facility] FswfepzZODZMVZISF8467-07-57 09:51:0016.1[facility] IbkdsylZMCALFGVJF3755-38-27 09:51:0049.1[facility] WogmvxoAQGBIFWPAQ7390-62-41 09:51:0091.0[facility] NyueqtiEOVWGYOFRA1202-78-17 09:51:00 Test Item Value Reference Range Interpretation Comments MCH (test code = MCH) 29.9 pg 27.0-31.0 [facility] BuihsavKKSJZXMSVU8250-97-34 09:51:0032.9[facility] HermannHEMATOLOGY 2019-11-23 09:51:0016.7[facility] CjrkmsdTODLUEWMRL0491-89-09 09:51:07812Psagkqlb RxvlcqzIUHXFUCGNE7977-09-43 09:51:009.8[facility] HermannCARDIAC LUBXYOS7826-31-36 02:28:000.04[facility] HermannCHEM FUKOE3800-58-87 02:28:001.7[facility] SZCGRMJYDZ5494-41-12 16:05:00Not Detected (11/22/19 11:05 AM)[facility] HermannCHEM VWADJ1112-17-33 12:35:002.6[facility]annURINE AND HWADF6569-83-27 12:20:00 Veronique *ABN*(11/22/19 7:20 AM)[facility] PTAHT8747-83-58 12:20:00 Slight *ABN*(11/22/19 7:20 AM)[facility] XCINP8217-92-87 12:20:00 Test Item Value Reference Range Interpretation Comments UA Spec Grav (test code = UA Spec 1.035 1 Grav) [facility] JYAEL0335-06-50 12:20:00 Test Item Value Reference Range Interpretation Comments UA pH (test code = UA pH) 5.0 1 5.0-8.0 [facility] GSPUW7670-20-00 12:20:00Negative *NA*(11/22/19 7:20 AM) [facility] ZAHTV2241-37-11 12:20:00Negative (11/22/19 7:20 AM) [facility] TJTEF9677-51-61 12:20:002.0[facility] BOMHX0644-94-30 12:20:00Negative (11/22/19 7:20 AM)[facility] AIHDX1570-77-91 12:20:00Negative (11/22/19 7:20 AM)[facility] XRLBK2047-00-35 12:20:001[facility] XGSCV1823-18-74 12:20:007 [facility] HEMSJ3199-67-99 12:20:004[facility] HermannHEMATOLOGY 2019-11-22 11:40:57 Test Item Value Reference Range Interpretation Comments PT (test code = PT) 12.4 s 12.0-14.7 [facility] YszyhpaTWYBWPDOLR2242-84-22 11:40:57 Test Item Value Reference Range Interpretation Comments INR (test code = INR) 0.92 1 0.85-1.17 [facility] CpkpujzGXHYRNUXKS0659-80-75 11:40:57 Test Item Value Reference Range Interpretation Comments PTT (test code = PTT) 25.1 s 22.9-35.8 [facility] RtadbbzZXGJSBIBCH3379-32-92 11:40:57 Test Item Value Reference Range Interpretation Comments ACT (TEG) Rapid (test code = ACT (TEG) 89 s 86-118 Rapid) [facility] DldcymcWVIUYMTKAA8799-18-70 11:40:57 Test Item Value Reference Range Interpretation Comments Split Point Rapid (test code = Split 0.3 min Point Rapid) [facility] VcpmrwlYSFKAVZVXZ3884-88-76 11:40:57 Test Item Value Reference Range Interpretation Comments R-time Rapid (test code = R-time 0.4 min 0.4-0.7 Rapid) [facility] FeushinTBLPSLDUEE7187-08-43 11:40:57 Test Item Value Reference Range Interpretation Comments K-time Rapid (test code = K-time 1.3 min 0.6-2.3 Rapid) [facility] MclwwlxQXOBPQHMQB3990-21-37 11:40:57 Test Item Value Reference Range Interpretation Comments Angle Rapid (test code = Angle 75 degrees 64-80 Rapid) [facility] AklkbixYNVWFCGAUT2165-45-40 11:40:57 Test Item Value Reference Range Interpretation Comments Max Amplitude Rapid (test code = Max 64 mm 52-71 Amplitude Rapid) [facility] EdibqdeDWFXZRAGIX2678-77-53 11:40:579.0[facility] HermannHEMATOLOGY 2019-11-22 11:40:570.0[facility] KwcfilgKDVGNAALCB9203-76-13 11:40:57Normal (11/22/19 6:40 AM)[facility] TamgjabFSSDDBAJFG8162-94-51 11:40:57Normal (11/22/19 6:40 AM)[facility] WdislvnXZVFMFNYPP1616-94-01 11:40:5777.5[facility] NYOUBZDBDT5251-80-24 11:40:5714.2[facility] TlhjdkfJZDZYYREOK0600-23-45 11:40:57 6.8[facility] IyhtnkfXRRTOCGVAL3046-62-03 11:40:570.2[facility] HermannHEMATOLOGY 2019-11-22 11:40:571.3[facility] KayyensJNEZOKHBKO2182-49-82 11:40:5716.9[facility] OhkzxcrDPAOYHRBML3039-75-42 11:40:573.1[facility] ShfbfglVXXTKEVLCI3367-34-76 11:40:571.5[facility] ZikcrrzGZQKMUSGKU4576-74-43 11:40:570.1[facility] VKPNRNNQNF8083-63-94 11:40:570.3[facility]annBL[facility]OD BANK HBWKQLB2647-21-52 10:56:00Negative (11/22/19 5:56 AM)[facility] HermannCARDIAC SJCGLVY4922-31-56 10:52:66794Yilrvorf HermannCARDIAC OGYSEHW7665-70-10 10:52:330.05[facility] HermannCHEM WNNTG0062-43-28 10:52:335.8[facility] HermannCHEM QEUPR2115-22-80 10:52:332.4[facility] HermannCHEM WVSKT9943-12-61 10:52:84833Hdfduqja HermannCHEM QAYZE7602-05-20 10:52:51896Tnzxxmlf HermannCHEM VMXSN5928-07-61 10:52:331.2 [facility]annCHEM HMTFC7675-36-48 10:52:330.3[facility] HermannCHEM PANEL 2019-11-22 10:52:330.9[facility] HermannCHEM WCFMD8029-53-33 10:52:333.4[facility] HermannCHEM QRNFK6692-89-22 10:52:33 Test Item Value Reference Range Interpretation Comments A/G Ratio (test code = A/G Ratio) 0.7 1 0.7-1.6 [facility]annCHEM MKNGX7038-44-47 10:52:82133Arbnvxkz HermannHEMATOLOGY 2019-03-04 17:02:0060.1[facility] NotisrtNQYKKNXTRX1451-75-83 17:02:0032.3[facility] OhvjedrZUQNDJRJCP2468-42-02 17:02:005.9[facility] XxjgygqIOMAFIWWSR1319-71-40 17:02:000.7[facility] VjbxzteXURSSKXCKO1862-89-99 17:02:001.0[facility] ENJOABUCRK8507-15-41 17:02:004.3[facility] BnolrwrOWVZNIQTIB7829-91-70 17:02:002.3 [facility] CcpstqvEOHUMJRLXQ5760-95-16 17:02:000.4[facility] HermannHEMATOLOGY 2019-03-04 17:02:000.1[facility] QnhyvoxEUTTHOLINX9421-11-72 17:02:002[facility] MijfyvcJLFBWLSBIM6609-98-14 17:02:007.2[facility] PsxahuxTAAMAFREFN0670-64-80 17:02:003.76[facility] NhvlvwyYSDECXSPEJ1311-38-31 17:02:0012.1[facility] XTIMLCFROX5496-93-92 17:02:0036.8[facility] SwefhliXWQUBBVSPZ6106-06-25 17:02:00 97.9[facility] PjlpqdgWADTQHIGKR7427-26-62 17:02:00 Test Item Value Reference Range Interpretation Comments MCH (test code = MCH) 32.1 pg 27.0-31.0 [facility] EpvpamhZUDZVJHJZK9345-18-74 17:02:0032.8[facility] HermannHEMATOLOGY 2019-03-04 17:02:0016.7[facility] RlbagegMPEMLGAULB9016-54-80 17:02:96938Xzvhcooy YzdrlziPSTAQKKVZT2749-57-82 17:02:008.9[facility] VxyjtiiEXJUQVREDL9237-36-18 17:02:00<2.9[facility]annBLOOD BANK OYBOFIY7236-39-44 12:49:00Negative (02/26/19 7:49 AM)[facility] SotswqjOWIAQSNBTT3504-54-42 09:11:0067.8[facility] VylphybBOZWDKOJTE2784-77-47 09:11:0022.9[facility] LyebdqcSPNLQCGKTU8159-35-97 09:11:007.8[facility] IpsdybyBLNHGORCHN6607-77-50 09:11:000.4[facility] UZLWHMMSND6973-41-35 09:11:001.1[facility] HgbeaqnUFZEIBPBLQ7408-40-61 09:11:006.3 [facility] LdwzjkvZCJTJLCYRY8304-07-73 09:11:002.1[facility] HermannHEMATOLOGY 2019-02-25 09:11:000.7[facility] VgjrvppTHJGWPJTUU1013-92-05 09:11:000.1[facility] HjknffgECAKSLZJJF5886-81-50 09:11:001+ *ABN*(02/25/19 4:11 AM)[facility] LGTDJZXQAI6868-77-11 09:11:009.2[facility] QsljjntMKKCSOTSMT0440-35-46 09:11:00 3.50[facility] QdvifecKHFAHIGIMX8538-77-36 09:11:0011.5[facility] HermannHEMATOLOGY 2019-02-25 09:11:0035.5[facility] AnranltXELBWXLVPY9696-05-00 09:11:17671.5 [facility] KxaommnWEBHEXYFTK3727-86-55 09:11:00 Test Item Value Reference Range Interpretation Comments MCH (test code = MCH) 32.7 pg 27.0-31.0 [facility] JqpwgfvDUOIQARLDB0128-35-27 09:11:0032.2[facility] HermannHEMATOLOGY 2019-02-25 09:11:0017.4[facility] MgwkmbfICNLPUFQHR9451-93-71 09:11:76269Ugbawlgq ZvtbcvoWNIOZMNJWZ7728-27-26 09:11:009.2[facility] HermannCHEM XIYXJ6437-97-34 10:17:85107Ptoufwrf HermannCHEM KQTNN9087-21-97 10:17:0020[facility] HermannCHEM ZVNMG9104-24-34 10:17:000.89[facility] HermannCHEM GMMHO1860-65-30 10:17:39527 [facility]annCHEM ZLNKG2012-57-55 10:17:004.3[facility] HermannCHEM PANEL 2019-02-22 10:17:30055Rmyzbobb HermannCHEM RGBPU7169-03-14 10:17:0027[facility] HermannCHEM HJPAT1184-95-17 10:17:0013.3[facility] HermannCHEM DXPXT9209-05-49 10:17:008.9[facility] HermannCHEM SGDQZ4572-80-98 10:17:0065[facility] WHKAUKKDQK7377-23-87 10:17:0063.7[facility] SjlmwyxHKWXFWGVJG7271-39-33 10:17:00 26.8[facility] DnijlocTJDRARKCRI4594-32-11 10:17:008.0[facility] HermannHEMATOLOGY 2019-02-22 10:17:000.4[facility] SrnhjgcALOIKWJQCO1256-23-73 10:17:001.1[facility] NysyywfFJFDQXQPZV4386-76-77 10:17:006.4[facility] LheaxstIHEBXERFBP6273-81-48 10:17:002.7[facility] NypsucvWIBVUSACBZ7630-11-05 10:17:000.8[facility] KOXNQKCUTF5752-86-11 10:17:000.1[facility] HqoaavdYHDVRSSJKT1446-00-35 10:17:00 10.1[facility] EjxltnvYGKWDQDLHK2870-71-09 10:17:003.93[facility]annHEMATOLOGY 2019-02-22 10:17:0012.7[facility] OetythqGSARQEMESW7684-28-13 10:17:0038.8[facility] ZpchkjnVXPMYRNJDR6293-28-75 10:17:0098.9[facility] WlctbulHNEIVKVXZC9427-26-60 10:17:00 Test Item Value Reference Range Interpretation Comments MCH (test code = MCH) 32.4 pg 27.0-31.0 [facility] CbczqkyDRPINFZWNV5305-17-94 10:17:0032.7[facility] HermannHEMATOLOGY 2019-02-22 10:17:0017.3[facility] OgjyifrPHMUJRWXJE8408-84-85 10:17:70161Ekwulzgc VjdecayBMPLQSVMXD9188-52-37 10:17:009.8[facility] HermannCHEM TSCHK4932-94-54 10:59:0095[facility] HermannCHEM VHABB4944-55-69 10:59:0018[facility] HermannCHEM HQMCH7273-81-75 10:59:000.77[facility] HermannCHEM USEPE2421-52-21 10:59:62299 [facility] HermannCHEM UJSZR1439-52-66 10:59:004.1[facility] HermannCHEM PANEL 2019-02-21 10:59:94752Beomhsjm HermannCHEM TEJKE4528-64-65 10:59:0026[facility] HermannCHEM TGWSQ5849-93-61 10:59:008.5[facility] HermannCHEM DIASI5486-22-65 10:59:0078[facility] HermannCHEM ITGJF1796-22-98 10:59:0012.1[facility] HermannCHEM VKNPH2069-23-13 10:59:002.0[facility] HermannCHEM NOWNE0985-45-85 10:59:003.5 [facility] NzfwoqbJPWYMBFTTGIW3694-54-03 09:46:0011.1[facility] HermannELECTROLYTES 2019-02-19 09:46:0073[facility] TzsdxhlKTCFPZMBPKGL4445-17-91 09:46:0021[facility] VhmupovVOHAFHSQQHGE6132-34-59 09:46:000.66[facility] FqzycvxIMNASRUAJFPV6606-02-21 09:46:10860Gvxryqma VyihqluWNWAMQEZZTDZ1315-18-41 09:46:004.1[facility] SUQYXIRIQHPH9383-86-38 09:46:21212Pczmygxi QbwengtIUMRTDDAWHWO5534-22-91 09:46:0026[facility] PkruzpaXHPVQIVMAKZW5838-75-17 09:46:008.6[facility] HIIVLULXRGWG5134-58-34 09:46:002.1[facility] ZojzaqyMQKCUTYVZWRM0942-41-81 09:46:003.0[facility] KvanorcXYOZWFDLCUJW6863-49-58 09:46:0088[facility] UZFVOJSWTT0027-43-36 09:46:000.1[facility]annCHEM VGSHA4055-47-27 08:45:002.4 [facility]annCHEM PKNIT8875-49-18 08:45:005.0[facility]annHEMATOLOGY 2019-02-18 08:45:000.0[facility] UotjojsJBTKXOWWUQ8764-49-45 08:45:002.0[facility] WreibxpCJZXYFPSGM4656-86-91 08:45:000.0[facility] PatqirvOGOESNEOSU1619-21-88 08:45:001[facility] DushbhfPJXSGHHBRY1772-28-22 08:45:00Normal (02/18/19 3:45 AM) [facility] YknsgrfPHEOYZRUPS0425-96-18 08:45:001+ *ABN*(02/18/19 3:45 AM)[facility] RhxksqwIWITZXPRSB8626-28-67 02:24:0018.8[facility] CvctixyPPVSRRPNTQ9926-57-48 02:24:00 Test Item Value Reference Range Interpretation Comments Roya Couch TND (test code = Roya Tr 2200 1 TND) [facility] FptbbelBUWYYNPRUA7377-53-55 07:22:001.0[facility]annHEMATOLOGY 2019-02-16 07:22:002.0[facility] SstyvqdMRWEIFJZZC1807-96-42 07:22:003.0[facility] XkmbkwxVSLXWCTPYQ6776-61-33 07:22:000.0[facility] ZfvyzgtPZAKWJSGIL6459-52-02 16:09:000.2[facility] UzkylvwQCMJGKCDBY3941-16-76 16:09:000.0[facility] QSORZICEMB4382-35-14 16:09:001.0[facility] CbddgpgNTMXERRZNU7426-05-22 16:09:001.0 [facility] TxdyemnLVSRSYZWXD8877-28-66 16:09:000.0[facility]annHEMATOLOGY 2019-02-15 16:09:002+ *ABN*(02/15/19 11:09 AM)[facility]annHEMATOLOGY 2019-02-15 16:09:001+ *ABN*(02/15/19 11:09 AM)[facility]annHEMATOLOGY 2019-02-13 10:40:000.4[facility] UpynqsdNLSEXLDBDW3000-35-35 10:40:001+ *ABN*(02/13/19 5:40 AM)[facility] LaprhltDDLKFLBUGC0296-53-29 20:53:0096.6[facility]annCHEM JQZJX3308-28-34 07:43:001.6[facility]annCHEM NDNQE2027-82-17 01:51:002.4[facility] BmdpsvyCCZPYYTCEZ8745-19-19 01:51:0012.1[facility] TRIMETHOPRIM+SULFAMETHOXAZOLE:SUSC:PT:ISOLATE:ORDQN:XZD9227-78-70 18:43:00 Staphylococcus aureusMem[facility] TRIMETHOPRIM+SULFAMETHOXAZOLE:SUSC:PT:ISOLATE:ORDQN:MSW3890-91-88 18:43:00 Enterococcus SpeciesMemorial [facility] TRIMETHOPRIM+SULFAMETHOXAZOLE:SUSC:PT:ISOLATE:ORDQN:JEK2635-14-54 18:43:00 Proteus mirabilisMemorial FqtljbtZSGVERILMP2311-11-84 14:43:0014.3[facility]annCHEM CMMFZ2458-70-72 03:40:001.6[facility]annCHEM XWCKB0502-38-82 14:04:002.1[facility] YbelbguGGRLXNJEAB5181-14-35 14:04:00Normal (02/09/19 9:04 AM) [facility] QlcymgbFFVBFZBIML2835-10-05 14:04:00Normal (02/09/19 9:04 AM)[facility] HermannPARATHYROID OMNBZSJ2474-64-28 14:04:001.06[facility] HermannPARATHYROID ALLLBHU5629-73-90 14:04:001.04[facility]UR[facility] AND AUUHD6259-16-33 08:55:00 Yellow *NA*(02/08/19 3:55 AM)[facility] EURME4179-12-95 08:55:00 Marked *ABN*(02/08/19 3:55 AM)[facility] SRATY1508-52-77 08:55:00 Test Item Value Reference Range Interpretation Comments UA Spec Grav (test code = UA Spec 1.022 1 Grav) [facility] IYBJG8438-41-99 08:55:00 Test Item Value Reference Range Interpretation Comments UA pH (test code = UA pH) 5.0 1 5.0-8.0 [facility] JVCUP0075-58-43 08:55:00Negative *NA*(02/08/19 3:55 AM) [facility] REISV7056-23-15 08:55:00Negative (02/08/19 3:55 AM) [facility] BOJFS7775-67-06 08:55:00<1.0[facility] EBEFT8351-21-26 08:55:00Negative (02/08/19 3:55 AM)[facility] PSZTW6530-74-49 08:55:00Negative (02/08/19 3:55 AM)[facility] HJTTU9817-19-41 08:55:0013[facility] AND WVVVL6995-67-43 08:55:004 [facility] SHDNR1396-50-81 08:55:005[facility] CHEM 2019-02-08 08:55:0030[facility]UR[facility] CPPN9134-76-75 08:55:34233.00[facility] HermannCARDIAC EINCFIZ3416-73-13 06:59:00<0.02[facility]annHEMATOLOGY 2019-02-08 06:59:0095[facility] CqbrlmiBNAYNEZEWF0774-21-23 06:59:0081.9[facility] HermannPARATHYROID BSVSBLE9775-25-94 06:59:001.19[facility] HermannPARATHYROID PCDJGBM3613-61-85 06:59:001.17[facility]annCHEM IECYF6905-91-73 01:53:81473 [facility]annPARATHYROID WSBDGMA7350-28-61 06:52:001.08[facility] PARATHYROID ZNDRMBD0339-88-94 06:52:001.09[facility] HermannANEMIA QJFSW7127-72-18 19:48:71369Mefbhwgm HermannANEMIA VSLZS7683-21-45 19:48:0016.9[facility] CHEM CFGLB5103-15-62 19:48:0013.0[facility] HermannCHEM QMBMA5961-18-55 19:48:00 172.6[facility] TibiwjcHADAXEAOGS1927-52-63 19:48:0017.3[facility] HermannIMMUNOLOGY 2019-02-06 19:48:34549Bemzripe HermannSPECIAL VGWOFSOPS4768-40-54 19:48:008.5 [facility]annCARDIAC OMYGPUE2254-27-09 19:43:000.03[facility] HermannCARDIAC WPLNGXK7048-27-80 19:43:16908Ihnzyoqr HermannCARDIAC NTMEBFU6823-87-52 19:43:00 1.5[facility] HermannCARDIAC EAMARZR7494-75-61 19:43:00 Test Item Value Reference Range Interpretation Comments CK MB Index (test code = CK MB Index) 0.8 1 <=2.5 [facility]annCHEM VRBOQ2872-33-69 19:43:00 Test Item Value Reference Range Interpretation Comments B/C Ratio (test code = B/C Ratio) 16 1 6-25 [facility]annCHEM IRQPD8783-16-44 19:43:006.4[facility]annCHEM PANEL 2019-02-05 19:43:002.2[facility]annCHEM QRWTC0103-78-25 19:43:004.2[facility] HermannCHEM LGUAI5742-29-31 19:43:00 Test Item Value Reference Range Interpretation Comments A/G Ratio (test code = A/G Ratio) 0.5 1 0.7-1.6 [facility]annCHEM RYEEG5006-17-33 19:43:40184Cvhcnsjw HermannCHEM PANEL 2019-02-05 19:43:64644Yueewwbf HermannCHEM SKQBV3372-01-15 19:43:000.6[facility] HermannCHEM EWPZU2495-70-75 19:43:77600Xuzdokfd HermannCHEM ZFAHN5158-87-90 19:43:006.5[facility]UR[facility] AND PJUQH3229-45-94 19:43:00Dark Yellow *NA*(02/05/19 2:43 PM)[facility] WIQYZ9937-33-05 19:43:00Marked *ABN*(02/05/19 2:43 PM)[facility] AND JRBLU0846-89-76 19:43:00 Test Item Value Reference Range Interpretation Comments UA Spec Grav (test code = UA Spec 1.022 1 Grav) [facility] TLWWV3401-41-13 19:43:00 Test Item Value Reference Range Interpretation Comments UA pH (test code = UA pH) 6.0 1 5.0-8.0 [facility] DKKJX1608-69-24 19:43:00Negative *NA*(02/05/19 2:43 PM) [facility] KDZVH7575-78-41 19:43:00Negative (02/05/19 2:43 PM) [facility] HDQFL1055-15-60 19:43:002.0[facility] GQARM0414-10-14 19:43:00Negative (02/05/19 2:43 PM)[facility] STOOL 2019-02-05 19:43:00Negative (02/05/19 2:43 PM)[facility] STOOL 2019-02-05 19:43:004[facility]annURINE AND PHUST2790-47-75 19:43:002[facility] TsfvntvWJJPSMYYLT4417-77-10 10:01:0012.0[facility] ZspkrsvWHUPHMDJLU1505-67-13 10:01:002.2[facility] YiwabkfVNWAXUFXUW0414-70-25 10:01:000.8[facility] MMDTECOLXF3489-59-83 10:01:0078.0[facility] YpnihhtFWROYJGBMG7552-50-81 10:01:00 0.0[facility] KvzmahkCIGZVREYHU7686-86-43 10:01:0014.0[facility]annHEMATOLOGY 2019 10:01:005.0[facility] CekrdncFYAMKNMBKT9071-03-72 10:01:001.0[facility] GxqjjrjRQGWWAFULA7117-92-45 10:01:002.0[facility] OtuqokwHUOZQMGEQV9673-74-38 10:01:000.0[facility] JoojuwbYFWXBRWXUH8288-22-87 10:01:003[facility] HUZHCJHONU0388-69-36 10:01:001+ *ABN*(01/09/19 5:01 AM)[facility]annHEMATOLOGY 2019 10:01:001+ *ABN*(01/09/19 5:01 AM)[facility] DvftfxeCCNTXHNIOI6871-62-14 10:01:00Moderate *ABN*(8/11/19 5:01 AM)[facility] ZyxeqhhHJIBUAMZVF9926-38-51 10:01:0015.4[facility] LjktooyMMXTSUIHXU9766-64-92 10:01:002.79[facility] NJPNPHKYXS1099-77-82 10:01:009.6[facility] BujbrhfOSBWWNKIMZ2026-74-96 10:01:00 29.3[facility] TtkayumNOKVRJIHFA3551-69-52 10:01:67352.8[facility]annHEMATOLOGY 2019 10:01:00 Test Item Value Reference Range Interpretation Comments MCH (test code = MCH) 34.5 pg 27.0-31.0 [facility] LrugeynQRFVHZSFLM5936-77-34 10:01:0032.9[facility]annHEMATOLOGY 2019 10:01:0022.7[facility] QcqteyySANVEACAVL1541-34-66 10:01:11857Dklysson NrbqruyOYNZVGXNPQ9973-27-02 10:01:009.8[facility] HermannCHEM WUJLQ0757-55-22 10:31:0079[facility]annCHEM YWYQN2361-72-86 10:31:0027[facility]annCHEM BJALI5685-63-00 10:31:000.77[facility]annCHEM XEBDL8331-34-06 10:31:48472 [facility]annCHEM SCVAT8083-77-69 10:31:004.2[facility]annCHEM PANEL 2019-01-07 10:31:49301Spzwrjey HermannCHEM JCMAE2373-57-82 10:31:0028[facility]annCHEM FPOWN6550-23-04 10:31:0012.2[facility]annCHEM QZDSE0062-51-53 10:31:008.6[facility]annCHEM VHCIT1658-94-43 10:31:0078[facility]annCHEM XGTVF8344-88-22 10:31:002.1[facility]annCHEM OSIIK0104-85-17 10:31:003.7 [facility] GmkadciUJPSBMSGDX2949-63-27 10:31:0014.2[facility]annHEMATOLOGY 2019-01-07 10:31:006.1[facility] UezfjajABFRCIYRUQ1471-59-14 10:31:000.4[facility] MnspttzUIAMBEMNQW1052-08-56 10:31:000.2[facility] WjjghsiDLRBGBGFII9351-89-93 10:31:0067.0[facility] WddslnoTKYOMOUFFX2100-34-55 10:31:000.0[facility] CSDIIMFINC0029-21-69 10:31:0029.0[facility] PekgvieMELQICOLJR5192-02-58 10:31:00 2.0[facility] NjnsusqWFRKQKQATL2132-39-50 10:31:001.0[facility]annHEMATOLOGY 2019-01-07 10:31:001.0[facility] JdrbtprRASCWRWEPY0932-83-18 10:31:000.0[facility] FtsynytHOJOMHLMZS4216-03-56 10:31:002[facility] NdeqkhmTXXZNODCKW3496-52-33 10:31:00Normal (01/07/19 5:31 AM)[facility] QvdqwarDNQKKIPLKF9239-86-57 10:31:001+ *ABN*(01/07/19 5:31 AM)[facility] AeoqlevTCMHNAIFRY7624-98-63 10:31:001+ *ABN*(01/07/19 5:31 AM)[facility] AveskjyJQZYPMNRMS8042-90-63 10:31:00Moderate *ABN*(01/07/19 5:31 AM)[facility] LvweurfKQGHIJPAMC4073-52-90 10:31:0021.2[facility] NlqsfjwPDISXJHLXW3424-26-17 10:31:002.83[facility] NrvdzxwYBDVEZJKBV6193-73-62 10:31:009.6[facility] HdqardwMLFTPKPKNL5143-18-51 10:31:0029.6[facility] XZHBCNWFSW5874-79-91 10:31:06590.5[facility] WckmatzEYNPKXDMID0342-56-56 10:31:00 Test Item Value Reference Range Interpretation Comments MCH (test code = MCH) 33.9 pg 27.0-31.0 [facility] EemyjgbRWJRDKFYDP1124-44-40 10:31:0032.4[facility]annHEMATOLOGY 2019-01-07 10:31:0019.9[facility] PgvmmclYIXPYOINYJ0010-35-05 10:31:81592Bjfzqdmu FdnremkIWQTTYLDPM2074-85-14 10:31:0010.6[facility] HermannCHEM JZDVG2035-32-69 19:41:75656Obdkamri HermannCHEM CDHPG9114-64-64 19:41:0027[facility]annCHEM PUMGH0069-18-72 19:41:001.34[facility]annCHEM YHVUR2750-42-61 19:41:79748 [facility]annCHEM XNHZP0634-66-19 19:41:004.0[facility]annCHEM PANEL 2019-01-06 19:41:95750Swirzlei HermannCHEM QXHKL1652-29-37 19:41:0027[facility]annCHEM LYHIH0774-30-92 19:41:008.3[facility]annCHEM EXGZS1540-84-61 19:41:0040[facility]annCHEM FDNGT7401-15-19 19:41:0016.0[facility] FLJJQRWLOQ3568-46-69 19:41:0084.9[facility] JkyohmvZEXDCNTSKI3610-17-18 19:41:00 11.4[facility] YgtgckfMCCMLJEAEG1976-22-22 19:41:002.9[facility]annHEMATOLOGY 2019-01-06 19:41:000.2[facility] SoglulmLGSEHPPTFG9913-60-75 19:41:000.6[facility] BxwagyzMFQEKEDPYT8520-92-32 19:41:0012.0[facility] GntfaolBKAXZRWZYJ9402-14-14 19:41:001.6[facility] DwofxggYGMWYJVISZ7874-01-54 19:41:000.4[facility] YMBWJLOUED9240-69-58 19:41:000.1[facility] DqllpufDKSJLCGSFR5780-10-53 19:41:001+ *ABN*(01/06/19 2:41 PM)[facility] CfksfzaLPGVBBSKLQ0758-50-76 19:41:0014.1[facility] VltmsufNVTEPNFZJZ4836-34-46 19:41:002.86[facility] KucjasmVITELGKAUT5582-74-19 19:41:009.7[facility] XiwgwkjFDRMAWENUM3892-94-40 19:41:0029.5[facility] JEPILUTKQR8554-45-82 19:41:63262.3[facility] KoboqdyDZDHINIIMV6697-69-50 19:41:00 Test Item Value Reference Range Interpretation Comments MCH (test code = MCH) 33.8 pg 27.0-31.0 [facility] PncrchzJTNZVSVNFN1165-32-18 19:41:0032.7[facility] HermannHEMATOLOGY 2019-01-06 19:41:0020.1[facility] AdjaezlTUCKITIRPA8363-75-63 19:41:06323Jhntzmht AfcfynyZFVWJCVJEU3233-32-39 19:41:0010.2[facility] HermannCARDIAC ENZYMES 2019-01-04 17:50:0098[facility] TzxoqlxEMYAXYWJISHE0647-24-83 17:50:0012.0[facility] YgzjbpaVBHNIXJRUNMY4756-15-31 17:50:0083[facility] MwmmipdKLEIYDYCYPBU2875-31-81 17:50:0023[facility] PbnupucSNIMAOBCGXKR5587-09-61 17:50:000.88[facility] MCYESQSTDZHB9666-18-38 17:50:33321Ybljqlci LzymuotPOKWTJMHIAUL5277-69-98 17:50:004.0[facility] ZrygojpSMVPCYGNDTGT2124-02-99 17:50:37633Czyltser [facility] VTYKBTUHHYXL2872-12-07 17:50:0025[facility] SxzebwlTXQBMNBYCUJS5638-78-93 17:50:00 8.5[facility] YvqbsofURBIMRVOHYRB5359-04-54 17:50:0066[facility]annHEMATOLOGY 2019-01-04 17:50:000.2[facility] QemltuaATJTDGVFJI0020-53-20 17:50:003.0[facility] VevvredDQXHNIDXKP3200-96-82 17:50:001.0[facility] XskmqciQRLNKOLWTD5236-04-26 17:50:001.0[facility] NarvlgcPWLNRGYYWL4109-90-07 17:50:000.0[facility] FGTKJLWKPD2888-57-89 17:50:009[facility] LdfmxypPIBZBEJHBZ0225-85-61 17:50:00 Normal (01/04/19 12:50 PM)[facility] WaspcgiBUMDGPRWGR8961-01-17 17:50:001+ *ABN*(01/04/19 12:50 PM)[facility] CnvdldxHCRHGMBMJF1318-99-37 06:25:000.1[facility] XwwlpacFPPFRZZKFX6711-48-58 06:25:000.7[facility] QysbgvtNFCNYTMRKM9408-92-68 06:25:000.2[facility] HermannPARATHYROID GBEZWHL7716-05-17 06:25:001.08[facility] HermannPARATHYROID AABLIWT8588-41-09 06:25:001.04[facility]annHEMATOLOGY 2018-12-31 07:09:003.0[facility] HermannCHEM QRDXL3379-10-53 09:20:002.1[facility] HermannCHEM EQEFA1767-59-66 09:20:002.7[facility] UuffxldZEXXCABTWZ1692-14-31 09:20:73287Dhcgidnd KzxgwtxGZNEZYZYVR5021-26-60 09:20:000.1[facility] PARATHYROID RUIZDPJ7162-20-40 09:20:001.08[facility] HermannPARATHYROID PROFILE 2018-12-30 09:20:001.10[facility] HermannCARDIAC NPPPCOY4798-21-00 05:04:000.09 [facility]annCHEM SSTLQ1583-37-12 05:04:002.0[facility] HermannCHEM PANEL 2018-12-29 05:04:002.4[facility] WpymqxeCEBUBQBROC8316-26-93 05:04:00Normal (12/29/18 12:04 AM)[facility] SnkqjuqSZGAIISUVM3537-05-46 05:04:00 Test Item Value Reference Range Interpretation Comments INR (test code = INR) 1.02 1 0.85-1.17 [facility] BparscpRFPKUVEJKA5742-71-15 05:04:00 Test Item Value Reference Range Interpretation Comments PT (test code = PT) 13.2 s 12.0-14.7 [facility]DyptwznWUKBHJATBN5685-11-38 05:04:00 Test Item Value Reference Range Interpretation Comments PTT (test code = PTT) 31.0 s 22.9-35.8 [facility] CampusPojxaxhIXVSKAADAU4238-69-86 05:04:91859Skbvekni HermannPARATHYROID XVUIPTU8505-76-93 05:04:001.10[facility] HermannPARATHYROID STZNMXU0929-17-07 05:04:001.11[facility] HermannCARDIAC CSOHCAB8066-88-27 07:31:000.11[facility] HermannCHEM JFIHK6485-20-23 07:31:004.7[facility] HermannCHEM DTSKX7675-22-82 07:31:002.8[facility] HermannCHEM HAXNR8372-00-29 07:31:0036[facility] HermannCHEM GWUNS7070-36-55 07:31:0018[facility] HermannCHEM SDJDG7114-22-79 07:31:0073 [facility]annCHEM XDNXR9463-64-64 07:31:000.7[facility] HermannCHEM PANEL 2018-12-28 07:31:000.2[facility] HermannCHEM RYDLC4790-77-27 07:31:000.5[facility] HermannCHEM ZYPRX1334-75-44 07:31:001.9[facility] HermannCHEM DQZGH3913-13-54 07:31:00 Test Item Value Reference Range Interpretation Comments A/G Ratio (test code = A/G Ratio) 1.5 1 0.7-1.6 [facility] CampusZlsaclxSHEIXZCWWC7373-48-60 07:31:001.0[facility]annHEMATOLOGY 2018-12-28 07:31:00 Test Item Value Reference Range Interpretation Comments INR (test code = INR) 1.13 1 0.85-1.17 [facility] CampusThppjgiBFKCEUGCHJ0371-14-00 07:31:00 Test Item Value Reference Range Interpretation Comments PT (test code = PT) 14.3 s 12.0-14.7 [facility] CampusPkssznbAEQOJAIAVL5498-02-04 07:31:00 Test Item Value Reference Range Interpretation Comments PTT (test code = PTT) 35.5 s 22.9-35.8 [facility] HermannSPECIAL WLUKEJJEF0666-52-17 07:31:0011.1[facility] HermannURINE AND KRLZZ9724-31-72 11:12:00Negative (12/27/18 6:12 AM)[facility] HermannCARDIAC QCTYZST0703-87-98 05:26:000.06[facility] HermannCHEM QFAQV4170-26-62 05:26:004.7 [facility] HermannCHEM EHVCB7315-91-76 05:26:003.5[facility] HermannCHEM PANEL 2018-12-27 05:26:0030[facility] HermannCHEM RBEIA4731-71-49 05:26:0011[facility] HermannCHEM NKWRZ7965-67-36 05:26:0055[facility] HermannCHEM DKVWR3512-22-87 05:26:000.5[facility] HermannCHEM NVMIF4110-23-98 05:26:000.1[facility] HermannCHEM NEHWW8494-94-67 05:26:000.4[facility] HermannCHEM ZCIAX1744-02-45 05:26:001.2 [facility] HermannCHEM NLEDK0701-21-75 05:26:00 Test Item Value Reference Range Interpretation Comments A/G Ratio (test code = A/G Ratio) 2.9 1 0.7-1.6 [facility] ZjlrhlkPPRKIMMFDT4751-12-14 05:26:00 Test Item Value Reference Range Interpretation Comments PT (test code = PT) 15.8 s 12.0-14.7 [facility] XadcpibLEKVMOXGCU5154-19-66 05:26:00 Test Item Value Reference Range Interpretation Comments INR (test code = INR) 1.29 1 0.85-1.17 [facility] FbvehunQNSRTHIRIZ0966-25-72 05:26:00 Test Item Value Reference Range Interpretation Comments PTT (test code = PTT) 37.6 s 22.9-35.8 [facility] ObyixxgALMNNFEJST4757-49-20 05:26:30573Oyqmehqe HermannCHEM PANEL 2018-12-26 05:48:005.1[facility] HermannCHEM OLORM6387-83-92 05:48:003.1[facility] HermannCHEM SANOO4258-26-98 05:48:002.0[facility] HermannCHEM GOSCD7069-58-49 05:48:00 Test Item Value Reference Range Interpretation Comments A/G Ratio (test code = A/G Ratio) 1.6 1 0.7-1.6 [facility] HermannCHEM OAORG1862-63-96 05:48:0051[facility] HermannCHEM PANEL 2018-12-26 05:48:0016[facility] HermannCHEM KZEBU3426-06-18 05:48:0088[facility] HermannCHEM OETCD2074-72-10 05:48:000.4[facility] HermannCHEM PWUOM5436-06-99 05:48:000.2[facility] HermannCHEM QUBQT2886-08-66 05:48:000.2[facility]annURINE AND BTTMV4352-47-67 19:16:00Light Yellow *NA*(12/25/18 2:16 PM)[facility] AND UWTYW5140-86-42 19:16:00Slight *ABN*(12/25/18 2:16 PM)[facility] URINE AND GWKWT5237-35-12 19:16:00 Test Item Value Reference Range Interpretation Comments UA Spec Grav (test code = UA Spec 1.013 1 Grav) [facility]annUR[facility] AND MNTHB0455-45-48 19:16:00 Test Item Value Reference Range Interpretation Comments UA pH (test code = UA pH) 5.0 1 5.0-8.0 [facility]annUR[facility] AND BKWIS5422-76-75 19:16:00Negative *NA*(12/25/18 2:16 PM) [facility]UR[facility] AND GSVUS5651-96-55 19:16:00Negative (12/25/18 2:16 PM) [facility]UR[facility] AND UAUPE2415-25-42 19:16:00<1.0[facility]annUR[facility] AND DBTYG0860-40-47 19:16:00Negative (12/25/18 2:16 PM)[facility]UR[facility] AND ZKFDT0659-39-05 19:16:00Negative (12/25/18 2:16 PM)[facility]UR[facility] AND NPGPU4064-73-15 19:16:004[facility]annURINE AND DWIXM5705-54-26 19:16:001 [facility]annCHEM IEKSP0117-18-65 08:58:001.8[facility] HermannHEMATOLOGY 2018-12-25 08:58:00 Test Item Value Reference Range Interpretation Comments Thrombin Time (test code = Thrombin 17.7 s 15.0-21.2 Time) [facility] CaqubhoNHLKDIMDFY7978-73-36 08:58:002.84[facility] HermannBACTERIAL - MTSSXHPF6005-22-51 05:22:00Negative (12/25/18 12:22 AM)[facility] HermannCHEM PANEL 2018-12-25 05:22:002.3[facility] HermannDRUG JTNKUT6262-79-99 05:22:00Negative *NA*(12/25/18 12:22 AM)[facility] HermannDRUG GSBMCY0530-53-35 05:22:00Negative *NA*(12/25/18 12:22 AM)[facility] HermannDRUG JRXDCS4219-61-47 05:22:00Positive *ABN*(12/25/18 12:22 AM)[facility] HermannDRUG AKMVRJ1167-76-56 05:22:00Negative *NA*(12/25/18 12:22 AM)[facility] HermannDRUG EYFWAF3811-73-66 05:22:00Negative *NA*(12/25/18 12:22 AM)[facility] HermannDRUG DVNNTK6502-04-38 05:22:00Positive *ABN*(12/25/18 12:22 AM)[facility] HermannDRUG VEAGAO1380-05-13 05:22:00Negative *NA*(12/25/18 12:22 AM)[facility] HermannDRUG WSLCTJ7481-33-56 05:22:00See Note (12/25/18 12:22 AM)[facility] MinzvxnOSVMWAQVJG8746-70-43 05:22:00Negative 7(12/25/18 12:22 AM)[facility] WolgxnjWQPEXYRNIC0158-08-77 05:22:00 Test Item Value Reference Range Interpretation Comments Pat Od Value (test code = Pat Od 0.215 1 Value) [facility] TitoyaqTDHUPVZHHQ8212-43-15 05:22:00 Test Item Value Reference Range Interpretation Comments Pos CO Value (test code = Pos CO 0.400 1 Value) [facility]annUR[facility] AND OBXEE0018-61-91 05:22:00Amber *ABN*(12/25/18 12:22 AM) [facility]UR[facility] AND ZOKTV9806-85-18 05:22:00Slight *ABN*(12/25/18 12:22 AM) [facility]UR[facility] AND WMUSA2739-25-60 05:22:00 Test Item Value Reference Range Interpretation Comments UA Spec Grav (test code = UA Spec 1.029 1 Grav) [facility]UR[facility] AND JQELG7618-68-52 05:22:00 Test Item Value Reference Range Interpretation Comments UA pH (test code = UA pH) 5.0 1 5.0-8.0 [facility]UR[facility] AND GLEDC4663-25-12 05:22:00Negative *NA*(12/25/18 12:22 AM)[facility]annURINE AND VDQRU9158-74-01 05:22:00Moderate *ABN*(12/25/18 12:22 AM)[facility]annURINE AND INUCH8348-67-25 05:22:004.0[facility] URINE AND QRMJJ0177-06-83 05:22:00Negative (12/25/18 12:22 AM)[facility] URINE AND CETKT3040-75-38 05:22:00Negative (12/25/18 12:22 AM)[facility] URINE AND FHMPM2273-56-83 05:22:003[facility]annURINE AND QQKRU8704-32-22 05:22:0037[facility]annURINE AND DUCNM5339-30-60 05:22:0023[facility] URINE AND SUZLH8387-70-21 05:22:001[facility] VANCOMYCIN:SUSC:PT:ISOLATE:ORDQN:ADS9539-30-76 05:22:00Staphylococcus aureus [facility] HermannBLOOD BANK IZSKOHQ3465-96-49 23:54:00Negative 5(12/24/18 6:54 PM) [facility]annCARDIAC BWPUGZG1744-43-05 23:54:0062[facility] HermannCHEM PANEL 2018-12-24 23:54:0027.0[facility] HermannCHEM SXNBL4166-45-90 23:54:005.0[facility] HermannCHEM TCQLF2080-86-21 23:54:0011.80[facility] HermannCHEM FZYZQ2578-01-55 16:13:0076[facility] HermannCHEM AFAUV4270-43-81 16:13:000.79[facility] HermannCHEM JIBVV5198-57-28 16:13:54411Edotfwsl HermannCHEM ULMGY8962-11-24 16:13:004.2 [facility] HermannCHEM ECIBM5470-97-23 16:13:0019[facility] HermannCHEM PANEL 2018-11-29 16:13:009.3[facility] HermannCHEM CPTOC3838-22-95 16:13:27245Zwlzwxsk HermannCHEM FGIJN2931-71-90 16:13:0030[facility] HermannCHEM SWGUW4362-38-87 16:13:86878Etjhqmit HermannCHEM TCKSH4848-06-93 16:13:0010.2[facility] URINE AND TEYIA7646-84-71 15:09:00None Seen (11/29/18 10:09 AM)[facility] URINE AND YRNGF4291-25-35 15:09:000.2[facility]annURINE AND ZCBIS0089-74-53 15:09:00Negative (11/29/18 10:09 AM)[facility]annUR[facility] AND SPUVF6936-73-39 15:09:00Negative (11/29/18 10:09 AM)[facility]annUR[facility] AND KNLTB3196-08-00 15:09:00Small *ABN*(11/29/18 10:09 AM)[facility]annUR[facility] AND BMZEQ5101-36-56 15:09:00Negative (11/29/18 10:09 AM)[facility]annURINE AND XJQZO7256-24-75 15:09:00 Test Item Value Reference Range Interpretation Comments UA pH (test code = UA pH) 5.5 1 5.0-8.0 [facility]UR[facility] AND JOSTE4609-52-08 15:09:00Negative *NA*(11/29/18 10:09 AM) [facility]UR[facility] AND IZPCW1890-52-50 15:09:00Negative (11/29/18 10:09 AM) [facility] NikolasannURINE AND PGGPB3650-75-39 15:09:00Yellow *NA*(11/29/18 10:09 AM) [facility] NikolasannURINE AND JVRKZ3161-56-40 15:09:00Slight Cloudy (11/29/18 10:09 AM)[facility] NikolasannURINE AND SCSBV4518-58-12 15:09:00>=1.030 *ABN*(11/29/18 10:09 AM)[facility]] CMP W/MXQI1242-35-51 12:32:00 Test Item Value Reference Range Interpretation [...] 74 {ML/MIN/1.7} > OR = 60 N GUINEAN (test code = eGFR NON-) eGFR 86 {ML/MIN/1.7} > OR = 60 N GUINEAN (test code = eGFR ) BUN/CREATININE NOT [...] mg/dl 0.2-1.2 N Normal (test code = 09908-2) ALKALINE 156 u/l 33-130 PHSPHATASE (test code = ALKALINE PHSPHATASE) AST; Normal (test 34 u/l 10-35 N code = 1916-6) ALT; Above High 71 u/l 6-29 SPECIMEN REC EIVED DATE Threshold (test AND TIME: 4412907774 code = 1742-6) [facility]] CBC (INCLUDES DIFF/PLT)2018-11-18 12:32:00 Test Item Value Reference Range Interpretation Comments WHITE BLOOD CELL 12.2 3.8-10.8 COUNT (test code = {Thousand/u} WHITE BLOOD CELL COUNT) RED BLOOD CELL 4.89 3.80-5.10 N COUNT (test code = {Million/uL} RED BLOOD CELL COUNT) HEMAGLOBIN; Normal 15.4 g/dl 11.7-15.5 N (test code = 46462-1) HEMATOCRIT; Above 45.8 % 35.0-45.0 High Threshold (test code = 4544-3) MCV; Normal (test 93.7 fL 80.0-100.0 N code = 787-2) MCHC; Normal (test 33.6 g/dl 32.0-36.0 N code = 67781-7) RDW; Normal (test 14.4 % 11.0-15.0 N code = 788-0) PLATELET COUNT; 177 140-400 N Normal (test code {Thousand/u} = 777-3) MPV; Normal (test 11.0 fL 7.5-12.5 N code = 07232-8) ABSOLUTE 44524 4468-1623 NEUTROPHILS (test {cells/uL} code = ABSOLUTE NEUTROPHILS) ABSOLUTE 8580 321-8048 N LYMPHOCYTES (test {cells/uL} code = ABSOLUTE [...] Normal 1.7 % N (test code = 98850-6) EOSINOPHILS; 0.1 % N Normal (test code = 22133-2) BASOPHILS; Normal 0.2 % N (test code = 40922-9) COMMENT(S) (test See Comment Review of p eripheral code = COMMENT(S)) smear con firmsautomated results.SPECIME N RECEIVED DATE A ND TIME: [facility] Chest 2 views [id number] 10:03:00 PROCEDURE: Chest Radiograph.Clinical Indication: Pneumonia.Comparison: Chest radiograph 09/17/2018.FINDINGS:The chest shows minimal subsegmental atelectasis at the left lung base. Nofocal consolidationis identified. There is left-sided CAFE [employer] shunt tubing. Thereare calcified granulomata in the upper lobes.The cardiac silhouette is upper limits of normal in size. Degenerative changeinvolves the thoracic spine and shoulders. An old distal right claviclefracture is suspected.IMPRESSION:1. Minimal left lower lobe subsegmental atelectasis.SL:[id number]--Quxs by: Eleazar Hamilton MDDictated Date/time: 11/18/18 10:49Electronically Signed by: Eleazar Hamilton MD 11/18/1909:52FINAL REPORTUnHe[facility] Bone Density DXA [employer] [id number] 10:53:00BONE DENSITY ASSESSMENT: 10/21/2018CLINICAL DATA: Post menopausal [...] was performed 10/21/2018 on the AP L2- N9jipkud of spine using a Hologic unit. The [...] careprovider is recommended.This exam was interpreted at [id number]. Betzy Caba M.D. ms/penrad:10/21/2018 12:45:40 Animal Hospital Clerk(s): Hailey Cornejo [facility]--Read by: Betzy Caba MDDictated Date/time: 10/21/18 12:45Electronically Signed by: Betzy Caba MD 10/22/1911:45FINAL REPORTUnHighland [facility] HbtgsaridmNZYJIICBER0011-42-71 15:20:0010.6[facility] CzcbhxxOJBDNDFOZB3332-29-13 15:20:0091.5[facility] TavnzykFDICGIBCAV8368-15-29 15:20:0042.9[facility] KPXYCAXPMY8267-92-88 15:20:00 Test Item Value Reference Range Interpretation Comments MCH (test code = MCH) 31.0 pg 27.0-31.0 [facility] NuwqkwxIFBBMTNNTA7509-77-56 15:20:0014.1[facility]annHEMATOLOGY 2018-09-23 15:20:0033.8[facility] CusksenGFHGANWXTH2824-08-53 15:20:39074Kvefkbvv SiejxcfOZNMWZXEKF9083-67-16 15:20:0014.5[facility] HzwcxnfUPAXCSHRJH2350-67-55 15:20:0010.8[facility] RwrvlgsPUPNLJYLZQ4720-38-72 15:20:004.69[facility] QOWVJZGZIB5866-36-57 15:20:000.1[facility] HclblipOSAGZMBOEJ9405-80-87 15:20:00 70.7[facility] HkhehboXAQCMHQYMC3546-09-79 15:20:0021.8[facility]annHEMATOLOGY 2018-09-23 15:20:002.4[facility] XbwavxdGUHHKUCPMA5316-20-90 15:20:007.6[facility] HukqlufUMIDAJPEWX9901-84-67 15:20:000.7[facility] MbkqldtJKHMMZZWBS1373-39-56 15:20:006.7[facility] RzthufrHGZCJRRBBC1189-05-19 15:20:000.3[facility] WEBGSDQBML0842-63-13 15:20:000.5[facility] HermannCHEM ZVJXQ7182-37-92 10:38:002.2 [facility]annCHEM ZXWMV1142-41-93 10:38:003.0[facility]annCHEM PANEL 2018-09-23 10:38:0069[facility]annCHEM IPMWO0249-49-41 10:38:0028[facility]annCHEM ONMIM5315-36-50 10:38:25896Esosuvji HermannCHEM MOVMR5089-51-77 10:38:003.8[facility]annCHEM EOHNA5625-13-02 10:38:40937Oufchqnt HermannCHEM JGDIY3009-94-23 10:38:009.8[facility]annCHEM LGZFA8839-61-91 10:38:008.1 [facility]annCHE[facility] MBZJX7097-17-56 10:38:0023[facility]annCHEM PANEL 2018-09-23 10:38:000.86[facility]annCHEM PRUAV2674-02-40 10:38:0043[facility] LguemanOQQVZSDAJG4350-57-26 10:38:0014.6[facility] NvgkjmrFVMBUDSWBY4299-77-10 10:38:0044.7[facility] LbrntykXHPUSVXIIS7977-42-16 10:38:004.85[facility] RAOQAKUBUC4709-63-51 10:38:0014.1[facility] CldlzgtVATYNNNZKI3451-16-70 10:38:00 10.9[facility] InwfhhiCOEOQGPGEY3562-84-94 10:38:0014.2[facility]annHEMATOLOGY 2018-09-23 10:38:04307Mlppotgq ByilrifBKVUJNKRKX4855-97-01 10:38:0092.2[facility] NuoczxvGKCXAJLRAF8356-61-17 10:38:00 Test Item Value Reference Range Interpretation Comments MCH (test code = MCH) 30.1 pg 27.0-31.0 [facility] ZeowvylUJLUUGRCBA4006-32-94 10:38:0032.6[facility] HermannPARATHYROID KQBLMYF3180-95-87 10:38:001.05[facility] HermannPARATHYROID VDJVDMA9672-39-10 10:38:001.00[facility]annCHEM XZPER9684-07-05 06:22:000.6[facility]annCHEM VYLQG6119-27-93 06:22:0035[facility]annCHEM MZZUD5967-04-84 06:22:0095 [facility]annCHE[facility] IZGUM9287-08-89 06:22:0047[facility]annCHEM PANEL 2018-09-22 06:22:0052[facility]annCHEM CEPDR1855-72-91 06:22:002.3[facility]annCHEM VMOKK7048-67-63 06:22:007.1[facility]annCHEM INVLF9813-42-22 06:22:0026[facility]annCHEM HWOVA4382-36-53 06:22:008.1[facility]annCHEM VJVCX4839-28-69 06:22:89743Xjotyvwh HermannCHEM GPMEP8999-45-07 06:22:004.3 [facility]annCHE[facility] LHITC1844-31-94 06:22:64109Lyxtzpjp HermannCHEM PANEL 2018-09-22 06:22:001.07[facility]annCHEM FAXLH6048-99-36 06:22:65133Mhsniyuv HermannCHEM NYLDT2481-63-78 06:22:0029[facility]annCHEM SKXKH4001-62-70 06:22:004.8[facility]annCHEM FECGS5410-97-44 06:22:00 Test Item Value Reference Range Interpretation Comments A/G Ratio (test code = A/G Ratio) 0.5 1 0.7-1.6 [facility]annCHE[facility] XLBMZ6825-50-16 06:22:00 Test Item Value Reference Range Interpretation Comments B/C Ratio (test code = B/C Ratio) 27 1 6-25 [facility]annCHE[facility] EORBT9619-78-80 06:22:0011.3[facility]annHEMATOLOGY 2018-09-22 06:22:006.5[facility] AebvuedJWJPWWZYPU4116-26-81 06:22:000.1[facility] DmxtsbtVJTFEVXQBD3753-80-69 06:22:000.2[facility] QihinbzJBFQREAGMH5984-63-11 06:22:0073.8[facility] IkoeogtDUFKATQOYZ3773-09-00 06:22:0019.4[facility] SNYJOWSGCJ9243-34-53 06:22:006.0[facility] FbxngndAYVVFPHBZM0843-34-21 06:22:001.6 [facility] IabjrmsCKSWLLEJJO4639-43-40 06:22:000.5[facility]annHEMATOLOGY 2018-09-22 06:22:0011.3[facility] WtijkelNGOXYZQAAD1019-59-19 06:22:0033.1[facility] TcalpttLDDNTCSTHZ5938-21-63 06:22:0014.0[facility] KdxszjgWAHNPZQJUI0040-47-67 06:22:17364Lfqttjwy FltautkXMWFZWXYZX0552-02-87 06:22:0093.1[facility] ZQXVLFEFNB7009-29-14 06:22:0044.2[facility] VvyhzfvAPOJVLIIWQ5695-34-27 06:22:00 Test Item Value Reference Range Interpretation Comments MCH (test code = MCH) 30.8 pg 27.0-31.0 [facility] MybmekkTIDXNBWNUE7059-65-29 06:22:004.74[facility]annHEMATOLOGY 2018-09-22 06:22:008.1[facility] ToqixfgBTDXAPXXRF8308-28-75 06:22:0014.6[facility]annCHEM IOXHG3840-74-49 07:00:003.3[facility]annCHEM UUBTD0429-32-63 07:00:002.0[facility]annCHEM APQVC3142-01-00 07:00:0070[facility]annCHEM LFTQX7474-16-61 07:00:008.7[facility]annCHEM TWBXZ4084-03-01 07:00:000.84 [facility]annCHEM TQVMH6561-63-24 07:00:32959Eqroagug HermannCHEM PANEL 2018-09-18 07:00:0032[facility]annCHEM ROKZT8582-56-51 07:00:01402Lqavgeqy HermannCHEM OYYWN7695-40-27 07:00:0032[facility]annCHEM APPYJ9666-31-52 07:00:003.9[facility]annCHEM LHAIE9875-71-80 07:00:00748Rwvnsuzg HermannCHEM FWHGK0996-89-61 07:00:007.9[facility] DhdkckhQPSMZUSVDZ5877-42-30 07:00:000.7 [facility] ZteehqaUGVISECGFT1398-14-03 07:00:001.7[facility]annHEMATOLOGY 2018-09-18 07:00:006.0[facility] WduagtyVXMYHCFGAW7162-97-47 07:00:000.1[facility] VpkpsarOSMAMGDSWK3703-37-93 07:00:008.5[facility] WeffquhUOZYONVFTH7122-01-73 07:00:0020.3[facility] CvdwcdlPACKDVCXQC6852-32-80 07:00:0071.1[facility] TPRWUNXYRR2586-05-45 07:00:0033.8[facility] BgpeejfPFELTVMXIM4379-94-19 07:00:00 14.1[facility] WqlwkugIEMGSUFJXY6661-65-78 07:00:00 Test Item Value Reference Range Interpretation Comments MCH (test code = MCH) 31.2 pg 27.0-31.0 [facility] AnulaxkRBAICNAUMX9068-61-52 07:00:0092.2[facility] HermannHEMATOLOGY 2018-09-18 07:00:0044.7[facility] IadelvyUKGDMELNVQ9831-48-02 07:00:004.85[facility] GanskodNGOILZYPZY1768-83-38 07:00:008.5[facility] RcxtkabFJKYGJXKLA7312-62-72 07:00:0015.1[facility] WcqjcooQXRQJZVYUW8528-90-59 07:00:0011.8[facility] CKQPEXKYRO6106-85-85 07:00:0081[facility] HermannPARATHYROID YQZYQLR4534-46-30 07:00:001.09[facility] HermannPARATHYROID CPMOZLW5704-11-98 07:00:001.09[facility] HermannCHEM XSMIM9634-29-17 06:12:002.0[facility]annCHEM YHTKL8920-05-06 06:12:008.6[facility]annCHEM RNYVX5538-59-34 06:12:006.4[facility] HermannCHEM GXKOK3967-13-73 06:12:0070[facility]annCHEM KMLLH9277-40-81 06:12:003.4 [facility]annCHEM PHCST4501-47-43 06:12:30900Sriwectd HermannCHEM PANEL 2018-09-17 06:12:68430Dhnkjcyh HermannCHEM LONRN4566-32-26 06:12:000.84[facility] HermannCHEM XVWHT9156-05-19 06:12:0035[facility]annCHEM MCCBR1236-10-57 06:12:81693Scuuxjqt HermannCHEM FQNDO3644-00-60 06:12:0037[facility]annCHEM KLENF8284-04-16 06:12:002.6[facility] FaacrvfBYFHZRJTUQ8472-04-19 06:12:0071 [facility] XexflrbUEXXUJSMUT5385-04-33 06:12:0033.1[facility] HermannHEMATOLOGY 2018-09-17 06:12:0010.7[facility] IigiohuJPWBPSCGNF6899-84-62 06:12:0014.1[facility] LzfctduNCCAVROLUQ9277-51-93 06:12:00 Test Item Value Reference Range Interpretation Comments MCH (test code = MCH) 30.4 pg 27.0-31.0 [facility] VoahlzkGQISWFPZVP1039-25-15 06:12:009.7[facility] HermannHEMATOLOGY 2018-09-17 06:12:0092.0[facility] CpzvmaeNGMFSDMLXS2820-92-01 06:12:0044.7[facility] IowkqplPKDILBBRAO8127-47-60 06:12:004.86[facility] DkmnbtxJHFSVWQKZQ0054-56-85 06:12:0014.8[facility] DwqpgupGDQPWFDAKZ2401-00-23 06:12:001.4[facility] TRGVBMQVNL1528-35-65 06:12:007.6[facility] MmxxthhJFIKIDSPBM8053-38-22 06:12:007.0 [facility] XndxjciXZOWUJULFF3620-41-00 06:12:000.5[facility]annHEMATOLOGY 2018-09-17 06:12:0014.4[facility] ThfyxdbAZAUATGVQP5756-27-00 06:12:000.7[facility] ZtykzusNKKNMJHMTQ7667-21-33 06:12:0078.1[facility] HermannPARATHYROID PROFILE 2018-09-17 06:12:001.11[facility] HermannPARATHYROID WPMHFVP6541-50-85 06:12:00 1.14[facility] HermannCHEM CJYSW4483-98-98 05:36:002.1[facility] HermannCHEM PANEL 2018-09-16 05:36:002.0[facility] JtaqxmpMYFHGGVUJSSE1951-87-85 05:36:008.1[facility] VtxlhodPIERCNQHTYTY9791-43-10 05:36:0047[facility] MahgttaSZDKHCQRYULP0298-90-27 05:36:0033[facility] VcbwnneBDKAJOWZBTLR6439-48-37 05:36:008.4[facility] PMWRJISNOTVW2648-86-99 05:36:004.1[facility] CqwruqgGVLWLZPNQDVB0487-97-08 05:36:17273Rozzjjzq XhtbbpjSZVIHDWSBBTE8395-90-30 05:36:48764Gptsaden Jorge Alberto JCAYZOEWVVUN9207-89-89 05:36:0037[facility] LsenrufPDPEXYUAOWQG1633-25-79 05:36:00 1.17[facility] KpafbazIENPFAKWBKUS2261-96-32 05:36:64133Sclgqvou HermannHEMATOLOGY 2018-09-16 05:36:0077[facility] OzossopLQAXVSKIAS8288-01-30 05:36:0033.5[facility] CoacgdzFDCNYUTYNM6362-21-57 05:36:0014.2[facility] GeqteztKSOMOXQNUV5459-25-03 05:36:0011.1[facility] XkelfzcMBYHEGMKFM6426-98-67 05:36:0092.4[facility] BAZODROPIH2535-26-95 05:36:00 Test Item Value Reference Range Interpretation Comments MCH (test code = MCH) 31.0 pg 27.0-31.0 [facility] HzvyurhNQGFDTUEUW0638-67-57 05:36:0041.6[facility] HermannHEMATOLOGY 2018-09-16 05:36:004.50[facility] ZmpwyntAZFHWNXRLU7100-95-27 05:36:0014.0[facility] UpxakouVXEOYWXQSK7821-45-34 05:36:0010.6[facility] AvatylkMKIJPKZNSL0833-97-96 05:36:008.8[facility] CegerwuOTKXEIPCNV8741-85-02 05:36:000.7[facility] VIQUUPWGZE2164-14-69 05:36:000.3[facility] OwvsbidJVYGXBDCLS8136-54-27 05:36:001.0 [facility] ArjdklqIGRRQWJTDL4165-01-15 05:36:0083.3[facility] HermannHEMATOLOGY 2018-09-16 05:36:009.9[facility] PgvtvolCVEJXJZCMZ9898-44-46 05:36:006.5[facility] HermannPARATHYROID YJFYOVF1009-47-39 05:36:001.13[facility] HermannPARATHYROID FKCUCDX4729-27-27 05:36:001.13[facility]UR[facility] RUYID2063-14-25 22:04:00 3[facility]UR[facility] QOUZQ1113-84-05 22:04:001[facility]UR[facility] PJXFI4397-36-74 22:04:00 Test Item Value Reference Range Interpretation Comments UA pH (test code = UA pH) 5.5 1 5.0-8.0 [facility] WUHST2958-79-04 22:04:74997 *ABN*(09/15/18 5:04 PM) [facility] RFUAL0672-13-26 22:04:00Negative *NA*(09/15/18 5:04 PM) [facility] PTQZI7320-36-35 22:04:005[facility] GZVTA7239-46-16 22:04:004[facility] PALGY3980-74-60 22:04:00 Negative (09/15/18 5:04 PM)[facility] VKPGU6195-80-34 22:04:00 Negative (09/15/18 5:04 PM)[facility] FPXQU5553-81-97 22:04:000.2 [facility] YPHBU7843-80-94 22:04:00Negative (09/15/18 5:04 PM) [facility] OWMHG2110-32-19 22:04:00Negative *NA*(09/15/18 5:04 PM) [facility] AQURA8207-29-01 22:04:00 Test Item Value Reference Range Interpretation Comments UA Spec Grav (test code = UA Spec 1.025 1 Grav) [facility] WPRQJ4122-28-09 22:04:00Clear (09/15/18 5:04 PM) [facility] PSLVK5930-88-31 22:04:00Yellow *NA*(09/15/18 5:04 PM) [facility] KyxauxtHFKVZTLWLB0689-23-22 17:20:00<1.0[facility] HermannBACTERIAL - XFVSSGUI3932-75-64 16:23:00Negative (09/14/18 11:23 AM)[facility] HermannIMMUNOLOGY 2018-09-14 14:09:001.25[facility] MiruvauXXFACBUQKI5787-92-20 14:09:0042[facility] RrcgchsYOHREWRVJX5176-57-36 08:47:000.1[facility] GinmqhnYSAOLXEZAN7039-44-94 08:47:000.1[facility] DdszqxzHJQZJYDXUG6665-33-75 08:47:001.1[facility] YWZFIFVDWC2920-65-13 05:36:000.1[facility] LypdlzqLAMWQCTXZA1810-85-86 05:36:000.1 [facility] VdrtlobCTWFUKHHZZ2286-52-45 05:36:000.9[facility]UR[facility] STOOL 2018-09-12 16:27:00<1.0[facility] BOVVP7341-46-92 16:27:00 Trace *ABN*(09/12/18 11:27 AM)[facility] DHFOF4784-37-31 16:27:00 Small *ABN*(09/12/18 11:27 AM)[facility] RSPJC4607-74-94 16:27:00 Negative *NA*(09/12/18 11:27 AM)[facility] BPAWN9578-72-12 16:27:00Slight *ABN*(09/12/18 11:27 AM)[facility] JNIMY6127-36-71 16:27:00 Test Item Value Reference Range Interpretation Comments UA pH (test code = UA pH) 5.0 1 5.0-8.0 [facility] QDHCD4543-54-79 16:27:00 Test Item Value Reference Range Interpretation Comments UA Spec Grav (test code = UA Spec 1.018 1 Grav) [facility] KEKQC6267-63-83 16:27:00Yellow *NA*(09/12/18 11:27 AM) [facility] QKBXI0900-56-05 16:27:004[facility] SHVMW1520-33-33 16:27:004[facility] TLEOZ4983-74-80 16:27:00 Negative (09/12/18 11:27 AM)[facility] TQUSQ6518-89-51 16:27:001 [facility] KRFPK0896-44-51 16:27:00Negative (09/12/18 11:27 AM) [facility]annCHEM FLLNC4362-85-24 09:34:000.7[facility] HermannCHEM PANEL 2018-09-12 09:34:74168Asqwwhjd HermannCHEM REYWL7247-63-99 09:34:008.3[facility] HermannCHEM QGQBY3464-50-61 09:34:0025[facility]annCHEM ZRJIQ0405-81-67 09:34:0034[facility]annCHEM DYHIP9991-58-38 09:34:002.7[facility] HermannCHEM AXVEI0734-05-07 09:34:005.6[facility]annCHEM LUBCA1529-63-53 09:34:00 Test Item Value Reference Range Interpretation Comments B/C Ratio (test code = B/C Ratio) 9 1 6-25 [facility]annCHEM AUWQM9196-80-93 09:34:00 Test Item Value Reference Range Interpretation Comments A/G Ratio (test code = A/G Ratio) 0.5 1 0.7-1.6 [facility] DfwmibxNKEULUIFTL2220-17-83 09:34:00 Test Item Value Reference Range Interpretation Comments PTT (test code = PTT) 31.6 s 22.9-35.8 [facility] YojlpobDKTMWJJODD5058-04-24 09:34:00 Test Item Value Reference Range Interpretation Comments PT (test code = PT) 14.2 s 12.0-14.7 [facility] NpgyrcoANFXOGVFRM2481-11-13 09:34:00 Test Item Value Reference Range Interpretation Comments INR (test code = INR) 1.12 1 0.85-1.17 [facility] QsbxflbNNAWCWHGSG9797-08-57 09:34:002.4[facility]annHEMATOLOGY 2018-09-12 09:34:000.2[facility] UmepqctOYUXPYSIDB2668-17-31 09:34:000.2[facility] HermannCHEM MZWPA6453-93-16 07:19:00<0.1[facility] HermannCHEM DCGSM7336-16-64 07:19:00 Test Item Value Reference Range Interpretation Comments A/G Ratio (test code = A/G Ratio) 0.5 1 0.7-1.6 [facility]annCHEM IHNQW2276-15-88 07:19:0040[facility]annCHEM PANEL 2018-09-11 07:19:0031[facility] HermannCHEM IONGM7309-69-46 07:19:33697Roufjcvj HermannCHEM NGUSX7708-75-78 07:19:000.8[facility] HermannCHEM ZWXZL3867-96-40 07:19:007.3[facility] HermannCHEM ELNUJ7393-43-91 07:19:002.5[facility] HermannCHEM QCGRU4400-26-80 07:19:004.8[facility]annBLOOD BANK ATRFODC4159-32-47 22:06:00 Negative (09/10/18 5:06 PM)[facility] HermannCHEM ALSOH3127-15-09 22:06:23338 [facility]annCHEM HHVXZ5588-15-75 22:06:000.8[facility] HermannCHEM PANEL 2018-09-10 22:06:0045[facility] HermannCHEM CWOEU4634-88-04 22:06:0035[facility] HermannCHEM MXMTP3373-22-51 22:06:007.1[facility] HermannCHEM RFBXD3297-58-95 22:06:002.9[facility] HermannCHEM HVHIU4570-28-15 22:06:00 Test Item Value Reference Range Interpretation Comments B/C Ratio (test code = B/C Ratio) 11 1 6-25 [facility]annCHEM BRYEO7625-99-79 22:06:00 Test Item Value Reference Range Interpretation Comments A/G Ratio (test code = A/G Ratio) 0.7 1 0.7-1.6 [facility] PKHDS8359-13-10 22:06:004.2[facility]HE[facility] 2018-09-10 22:06:00Negative 1(09/10/18 5:06 PM)[facility] 22:06:00 Test Item Value Reference Range Interpretation Comments Pat Od Value (test code = Pat Od 0.127 1 Value) [facility] HospitalSabtgsePFYURFDHZV6481-36-82 22:06:00 Test Item Value Reference Range Interpretation Comments Pos CO Value (test code = Pos CO 0.400 1 Value) [facility]VhacmdpSYPIHALCSV6256-51-46 22:06:00 Test Item Value Reference Range Interpretation Comments INR (test code = INR) 1.08 1 0.85-1.17 [facility] AmericaUsxuafpPOYOBYJBLT7928-63-06 22:06:00 Test Item Value Reference Range Interpretation Comments Thrombin Time (test code = Thrombin 19.1 s 15.0-21.2 Time) [facility] AustinInbqrooYCVYJPIUHJ4908-21-60 22:06:001.22[facility]HEMATOLOGY 2018-09-10 22:06:27646Ygdfbwxx IrozpruCMCHWHQCSJ7400-62-64 22:06:00 Test Item Value Reference Range Interpretation Comments PTT (test code = PTT) 30.3 s 22.9-35.8 [facility] AmericaPiaipygSVXTIFHBAE3252-82-96 22:06:00 Test Item Value Reference Range Interpretation Comments PT (test code = PT) 13.8 s 12.0-14.7 [facility] CampusVxukqirKGTOFDGATF1397-50-63 22:06:60671.0[facility]UR[facility] GRPDD8226-26-58 22:06:00Marked *ABN*(09/10/18 5:06 PM)[facility] NIALI5707-29-16 22:06:00Yellow *NA*(09/10/18 5:06 PM)[facility] JBAYX9822-04-55 22:06:00 Test Item Value Reference Range Interpretation Comments UA pH (test code = UA pH) 6.0 1 5.0-8.0 [facility] JLPDM5249-31-77 22:06:00Trace *ABN*(09/10/18 5:06 PM) [facility] DATKQ8788-45-24 22:06:00Negative *NA*(09/10/18 5:06 PM) [facility] YHYMT5567-90-32 22:06:00Trace *ABN*(09/10/18 5:06 PM) [facility] SIKWY4309-56-50 22:06:00<1.0[facility] YIWXB9711-23-65 22:06:00Small *ABN*(09/10/18 5:06 PM)[facility] AGLBJ5867-77-62 22:06:00Negative (09/10/18 5:06 PM)[facility] JVHDR3330-57-62 22:06:00 Test Item Value Reference Range Interpretation Comments UA Spec Grav (test code = UA Spec 1.012 1 Grav) [facility] EIDZA1654-60-08 22:06:0019[facility]UR[facility] MYCIU5203-57-85 22:06:001[facility] ImmrqfgVUYOTSJZEW9162-21-67 14:47:000.0 [facility] BlmvuuoUSQJRHRAEA9381-13-57 14:47:000.0[facility] HermannIMMUNOLOGY 2018-09-10 14:47:70027.0[facility] CgttdfyOJUSNHOFCG4693-11-78 16:20:0020[facility] MymkkcoDZWBWPSGAM8079-98-74 16:20:005.2[facility] GxtvgivVXWZATLFFY5634-09-33 16:51:00 Test Item Value Reference Range Interpretation Comments PTT (test code = PTT) 32.0 s 22.9-35.8 [facility] MkkvgbdMDJGQOPWCK6838-72-03 16:51:00 Test Item Value Reference Range Interpretation Comments PT (test code = PT) 13.5 s 12.0-14.7 [facility] JgifzroRFAKWNBKDT9763-50-32 16:51:00 Test Item Value Reference Range Interpretation Comments INR (test code = INR) 1.05 1 0.85-1.17 [facility] PiuayvdRDXXJUJHUCNV3993-54-65 16:46:0015.8[facility] HermannELECTROLYTES 2018-09-08 16:46:00 Test Item Value Reference Range Interpretation Comments B/C Ratio (test code = B/C Ratio) 16 1 6-25 [facility] XmcgfzyRVAIIQJOBWCD8644-66-03 16:46:004.2[facility] HermannELECTROLYTES 2018-09-08 16:46:00 Test Item Value Reference Range Interpretation Comments A/G Ratio (test code = A/G Ratio) 0.7 1 0.7-1.6 [facility] XllkhlsYOEIVRWTRMLO3718-87-87 16:46:75040Juyybwhb HermannELECTROLYTES 2018-09-08 16:46:003.8[facility] CcdhsmlCMXJOIRKKMAC3661-86-03 16:46:38377Lluqkudy OfntpkgJAEBREVPEKZL4570-40-24 16:46:0021[facility] PkkkvzeQQSARRMJQLAF5510-02-38 16:46:84683Vtcgqnva JailknaFUDRQNJHRUJV7381-65-29 16:46:002.9[facility] SJCKRLCNHIIZ7690-66-75 16:46:0028[facility] ZggorjjIQLHUBVHNHLC0550-29-77 16:46:00 40[facility] DkhjmtjXLGHKDAAAFJU9776-78-95 16:46:91946Xkcjviqz HermannELECTROLYTES 2018-09-08 16:46:0067[facility] FdyosuyNDTTMTGRQTYV7337-49-59 16:46:001.33[facility] JjqftvdJBPDZLPPPGSN9795-08-74 16:46:001.3[facility] LghgbmfUWPAIDBTCYDO4058-29-14 16:46:007.1[facility] EbzexxrWSAJQNWAELVO6222-59-66 16:46:67601Wbwdpqxk [facility] KCGTPGPHIJBQ3053-12-35 16:46:009.3[facility] KbgtkqlCOYOAQEDHO6076-44-43 16:46:00 0.1[facility] DuoepcrSJFNXGHPFK1838-90-32 16:46:002.5[facility]annHEMATOLOGY 2018-09-08 16:46:000.2[facility] NdmbfjlAFHUGJVXLY1720-80-44 16:46:000.7[facility] BmoehnaTMCPEIUQOA3061-35-31 16:46:003.3[facility] DkwgzupBEWXYXYNBH5110-97-83 16:46:009.8[facility] ScqcjjmBQQXAABRPD0697-06-28 16:46:002.5[facility] MUPGSXZPVH1687-10-62 16:46:002.0[facility] ToeihrdXJHXDTLRNR8372-49-69 16:46:00 48.8[facility] GbnlkwzYJDGJUHHIO4058-68-26 16:46:0036.9[facility]annHEMATOLOGY 2018-09-08 16:46:0011.3[facility] UpgamnoCRRMOOFJGS4886-52-20 16:46:00 Test Item Value Reference Range Interpretation Comments MCH (test code = MCH) 30.3 pg 27.0-31.0 [facility] UlkcweiGIIXQUMFZW7813-12-62 16:46:21394Zvjnrgbj HermannHEMATOLOGY 2018-09-08 16:46:0013.9[facility] DrbzcboNEESQDTHEH3400-32-66 16:46:0092.9[facility] CbubsvwOGVCPHXVGT1871-28-79 16:46:0032.6[facility] DbeyegcKCTCCEWAHG9037-57-45 16:46:006.8[facility] EzlnaskEGAHZUTNLN4374-54-61 16:46:005.13[facility] YCOANHRQHN7347-40-34 16:46:0015.5[facility] TtlcvrwMMEWXYPITZ5330-78-01 16:46:00 47.7[facility] NwjfdvzBVVMOG3752-02-92 16:46:00 Test Item Value Reference Range Interpretation Comments VLDL (test code = VLDL) 24 1 [facility] BzyqcyuQODXNM9797-27-03 16:46:0045[facility] IuekahuWOICDM4115-85-74 16:46:00 Test Item Value Reference Range Interpretation Comments CHD Risk (test code = CHD Risk) 2.82 1 3.90-5.80 [facility] GsopyldWOQZYU9162-33-53 16:46:0038[facility] DenxdjkSUKTJN0171-45-09 16:46:42369Xiqpnvwt MopsoxsCJJVVJ2346-53-06 16:46:85329Cwacfper HermannSPECIAL DHASQEBNK1690-08-10 16:46:0012.2[facility] JmzljgaRNLYTTIRSZ7124-10-07 22:52:009.7 [facility] WadhoqsAKJNZXAGVD9929-05-40 22:52:80170Fgxpbsew HermannHEMATOLOGY 2018-08-19 22:52:0013.7[facility] HgnfsabOUCVCLGHCK8201-36-50 22:52:0017.8[facility] BqtijwsQENVKMJGIW1583-10-57 22:52:0052.9[facility] QawjslsXILMQALYAS7291-79-60 22:52:0092.3[facility] FiwzxprGXQFXLWMFY5010-14-55 22:52:005.73[facility] IXWJEYXMUG0578-25-30 22:52:008.5[facility] FvbavryLJHKSRQSRW3851-29-99 22:52:00 33.6[facility] IzxmmvzVRMTTBSIEJ4816-05-56 22:52:00 Test Item Value Reference Range Interpretation Comments MCH (test code = MCH) 31.0 pg 27.0-31.0 [facility]annCARDIAC PYTRJIB2247-61-82 09:40:0098[facility] HermannCHEM PANEL 2018-08-19 09:40:003.4[facility] HermannCHEM MKPTP4453-01-92 09:40:001.9[facility] HermannCHEM METME2241-08-49 09:40:0062[facility] HermannCHEM WBIVG6982-71-14 09:40:008.8[facility] HermannCHEM GQOHG6665-20-55 09:40:0023[facility] HermannCHEM NGXPX2132-05-20 09:40:66602Utrpxcwx HermannCHEM LMGJO7402-55-78 09:40:004.6 [facility]annCHEM DIZNM9454-79-09 09:40:000.94[facility] HermannCHEM PANEL 2018-08-19 09:40:01389Yxscxgne HermannCHEM DKSRT4990-88-30 09:40:0013[facility] HermannCHEM YKMKJ9759-94-47 09:40:14790Qpfjcfhr HermannCHEM IOJRC2721-93-24 09:40:0013.6[facility] XmdciqlBEHDYQFZMN3874-70-00 09:40:000.2[facility] TVGBCHNQKZ7087-36-76 09:40:000.1[facility] XpbalqrBKOMZMRFXX0219-79-08 09:40:00 47.9[facility] YwlgrymHVHHUAVABF8932-96-11 09:40:0040.1[facility] HermannHEMATOLOGY 2018-08-19 09:40:003.9[facility] LvternkWJDCRYHXKZ0405-54-37 09:40:000.9[facility] HlfmztnNMUXNJTFSI5633-27-88 09:40:008.8[facility] YzphnanTXMGWRHMUN8236-31-28 09:40:001.2[facility] HecsbpxYMVDUQYPBE7686-02-16 09:40:002.0[facility] VORATJZGPL8050-90-74 09:40:004.7[facility] YjzydysMSEMTUDLMD1666-75-69 09:40:00 Test Item Value Reference Range Interpretation Comments INR (test code = INR) 1.09 1 0.85-1.17 [facility] QjrparaDJIUIFLFWG0917-88-10 09:40:00 Test Item Value Reference Range Interpretation Comments PT (test code = PT) 13.9 s 12.0-14.7 [facility] ZxnydojUGBJYJNLNW9781-42-80 09:40:00 Test Item Value Reference Range Interpretation Comments PTT (test code = PTT) 31.0 s 22.9-35.8 [facility] QudltalAJBDKKXNIJ1217-41-24 09:40:0093.0[facility] HermannHEMATOLOGY 2018-08-19 09:40:00 Test Item Value Reference Range Interpretation Comments MCH (test code = MCH) 31.1 pg 27.0-31.0 [facility] EamyvdiBQLYURZZQT0792-70-52 09:40:0013.7[facility] HermannHEMATOLOGY 2018-08-19 09:40:0033.4[facility] QxqvrfhUUPDZLLGQP0312-77-48 09:40:0077[facility] BkiobjxRNJSUYLAUP6432-13-84 09:40:009.9[facility] CubkqpxYBHMKVFGMY4724-96-33 09:40:0049.7[facility] WstvruiRXMNDOWYHT5025-87-54 09:40:0016.6[facility] WQHEIDHYWI4815-32-24 09:40:005.35[facility] FjfvgaoLMMHPUXFHL8625-31-97 09:40:00 9.7[facility] HermannPARATHYROID OMNZLFE5292-73-75 09:40:001.02[facility] PARATHYROID JTSWZLV8231-76-06 09:40:000.98[facility]annURINE AND STOOL 2018-08-19 09:40:00Negative (08/19/18 4:40 AM)[facility] HermannCHEM PANEL 2018-08-18 10:45:57679Honhfbuc HermannCHEM QHUSG7120-45-40 10:45:00 Test Item Value Reference Range Interpretation Comments A/G Ratio (test code = A/G Ratio) 0.6 1 0.7-1.6 [facility] HermannCHEM WAVGL3668-39-42 10:45:0030[facility] HermannCHEM PANEL 2018-08-18 10:45:006.9[facility] HermannCHEM FMLAI6897-45-93 10:45:002.6[facility]annCHE[facility] SXPOE3451-73-89 10:45:004.3[facility]annCHE[facility] XJZDO8911-56-50 10:45:00<0.1[facility]annCHE[facility] MHZIS8095-02-83 10:45:000.5[facility] CHEM OYGIL0291-08-60 10:45:00>0.4[facility]annCHEM QMHZN0894-05-10 10:45:0021[facility]annCHEM FZXIQ6363-98-13 10:45:008.5[facility]annCHE[facility] ZXWWV0539-61-85 10:45:0071[facility]annCHE[facility] KDSNZ7301-35-83 10:45:0013 [facility] GBAYV2214-63-79 10:45:33077Sjvixocv HermannCHEM PANEL 2018-08-18 10:45:0027[facility]annCHEM TMZED6764-41-56 10:45:003.6[facility]annCHEM XGHRZ4758-61-01 10:45:21017Xcqsoalq HermannCHEM RUUES1781-17-98 10:45:36293Fehdzwlf HermannCHEM JCLCF1607-94-56 10:45:000.83[facility]annCHEM WGJHI9606-47-49 10:45:0010.6[facility]annCHEM HJNJM0755-59-60 10:45:001.8 [facility]CHE[facility] GZHPI6646-51-03 10:45:003.6[facility]annHEMATOLOGY 2018-08-18 10:45:003.9[facility] PnrtmneTXGICYVHGR4531-76-84 10:45:002.5[facility] XceossiUVBYTQCIFZ1523-59-49 10:45:001.9[facility] LzzeelpIXAQMJXFLL3395-03-76 10:45:000.6[facility] NooeorqLVADDTFSOA2526-11-97 10:45:003.8[facility] DUHHIMZGAW4418-60-24 10:45:000.2[facility] XilaassRRPDMIDOOY6215-80-35 10:45:000.2 [facility] RtcunygTDHJLPXABR6658-64-92 10:45:0044.0[facility]annHEMATOLOGY 2018-08-18 10:45:0045.3[facility] AdkzixkZDLFQWXKUG5650-83-09 10:45:006.3[facility] LrayremCGMXVHAAXV3811-87-86 10:45:0049.2[facility] VslaehyUONBQLZHPQ1500-57-07 10:45:0017.0[facility] QapygsqBTNSXMMQGH3314-02-15 10:45:005.30[facility] LKPPYMMLOL8710-37-53 10:45:008.7[facility] XitgkzeVHOTISPPAA6143-74-46 10:45:00 92.8[facility] HzjzjsvFXLYUKHLEM9428-62-66 10:45:009.7[facility]annHEMATOLOGY 2018-08-18 10:45:0013.6[facility] ZndqbijOCJJSBSDJF5155-51-06 10:45:28129Fphptmyi RosknezRKMWGCPTJP0873-71-87 10:45:0034.6[facility] QfhmudoANXVOBAWUG2685-35-61 10:45:00 Test Item Value Reference Range Interpretation Comments MCH (test code = MCH) 32.1 pg 27.0-31.0 [facility]annPARATHYROID KAPZWFF4003-89-87 10:45:001.05[facility] PARATHYROID NOSUPDO5182-84-44 10:45:001.06[facility] VxozstzNPDQCPDYMI3396-04-35 04:46:110.9[facility] WnecygyLXOEDILGYO4868-71-15 04:46:110.2[facility] EHSIQMLJXO4947-25-85 04:46:115.1[facility] ZvndetmDIQHKPEUFE0606-28-87 04:46:110.1 [facility] NbcieoiJJYVAYHRHC5248-48-10 04:46:117.6[facility]annHEMATOLOGY 2018-08-17 04:46:1144.9[facility] AmiziszANNAIYCQJI4835-04-86 04:46:1144.2[facility] MphworaBJCSJKIRHS7878-27-00 04:46:111.3[facility] DnleonoERKOBLXHKB2076-09-49 04:46:112.0[facility] NpotivmWCWXQRTJMD4436-15-04 04:46:115.2[facility] QWVHNAZIUTZV5718-02-28 20:35:0011.9[facility] VmmiovgGYFXINUJBGHM1318-03-69 20:35:0064[facility] VskkoqqBOKLSCVTJTIO1067-31-70 20:35:83672Xrccvpbw [facility] KIXCPMGALMQF1699-94-73 20:35:003.9[facility] PvrbirbSYCTFRPTQUIC6525-97-19 20:35:95176Rutmscsz KvwsldzVGYYPOJPZANQ4212-19-96 20:35:0030[facility] ESJZRNEPCSDX6264-86-84 20:35:009.6[facility] IqvkbxiFPYWWXJTMKCP2039-47-21 20:35:0016[facility] EnsaxezYUJWSLPKEDVU4239-85-64 20:35:45002Roxkituq [facility] VFOGQPJFSOYQ4631-54-13 20:35:000.91[facility] QroqrggQTCVZTRKOX9270-09-93 20:35:00 Normal (08/16/18 3:35 PM)[facility] TmldlyxGDOAQYRDTN1352-20-05 20:35:00Normal (08/16/18 3:35 PM)[facility]OnvsnbbKHSKIPAXZM9043-61-80 20:35:00 Test Item Value Reference Range Interpretation Comments PTT (test code = PTT) 32.0 s 22.9-35.8 [facility] AustinLrazuaiZAZCGLGWME2707-63-50 20:35:00 Test Item Value Reference Range Interpretation Comments PT (test code = PT) 12.6 s 12.0-14.7 [facility] AustinHiejzoeEVKQNPUVMS7672-90-84 20:35:00 Test Item Value Reference Range Interpretation Comments INR (test code = INR) 0.96 1 0.85-1.17 [facility] UUSO0844-38-36 15:21:00Surgical Pathology Report Case: [id number] Authorizing Provider: Ruma Ndiaye MD Collected: 02/24/2017 1559 Ordering Location: [facility] Received: 02/25/2017 0810 [...] SERRATED POLYP/ADENOMA Signing Pathologist Direct Phone Line: [phone] signed by Kenji Hercules MD on 02/26/2017 at 3:21 [id number] x 3Diarrhea, rule out microscopic colitisA. Right/ascending [...] METER 144 mg/dL 70-110 H TESTED AT [place] [address] ([facility]) (test code = [facility] 1538) [address] POCT-GLUCOSE HWKDS9369-74-77 14:21:00 Test Item Value Reference Range Interpretation Comments POC-GLUCOSE METER 118 mg/dL 70-110 H TESTED AT [place] [address] ([facility]) (test code = [facility] 1538) [address] BEDSIDE GLUCOSE IQTOTIU2308-69-71 21:51:10214.0[facility]annBEDSIDE GLUCOSE IYNRIER5747-71-51 16:52:40393.0[facility]annBEDSIDE GLUCOSE MKNRALD8171-43-70 12:45:51685.0[facility] FlomuanUVVPQPSNS3459-14-76 10:30:003.3[facility] JFZFWYMWX6821-60-87 10:30:005.4[facility] OpkmdeaIIRAUFZHT5204-32-58 10:30:002.1 [facility] WupqhklBCNAJSHLN3789-16-10 10:30:82615.0[facility]annCHEMISTRY 2011-03-25 10:30:54122.0[facility] IohtstfQBRAXDVJC1638-51-62 10:30:00 Test Item Value Reference Range Interpretation Comments A/G Ratio (test code = A/G Ratio) 0.6 1 0.7-1.6 L [facility] UqmyvlnDMOGNSIGF5262-72-08 10:30:56379.0[facility] HermannCHEMISTRY 2011-03-25 10:30:000.2[facility] TsxnnvdEKOQUFYYS1317-03-72 10:30:000.3[facility] DgvoiznDGGTBBTGQ1627-21-29 10:30:000.1[facility] TkjbsigYHOKRIAWC5517-86-09 10:30:002.4[facility] TuhgcocVVZSJRYAS4026-07-52 10:30:004.1[facility] WPBUWHZAS8155-82-99 10:30:72997.0[facility] QfjpevmTEMYTRQJP2508-30-27 10:30:00 140.0[facility] ReserzaPLBFHENNT5892-94-38 10:30:008.0[facility]annCHEMISTRY 2011-03-25 10:30:0019.0[facility] CwtebduJBVNZYUMU9651-02-68 10:30:73436.0[facility] WgkomicMPEJFTECC9501-23-39 10:30:0021.0[facility] GceatcvMGNILGKRM6420-20-21 10:30:001.7[facility] TvdbvymIPUPZWMEH6153-04-08 10:30:0018.1[facility] ZRFEBBEGWZ7947-48-04 10:30:000.9[facility] CfjzoffZOXSEEEKHI1246-41-59 10:30:000.1 [facility] RqujgovMHUJIWWUFH2402-93-15 10:30:0016.0[facility]annHEMATOLOGY 2011-03-25 10:30:009.1[facility] EpabgeiBGZYMWHPXE2455-53-79 10:30:001.5[facility] MqyygnmFGPNTEDVEJ4639-52-85 10:30:004.3[facility] QibnlnkININDFLSPV7815-78-96 10:30:003.2[facility] JcgghfnWKXKLCFSXJ3652-00-16 10:30:001.6[facility] XSROHWEUOW4820-97-35 10:30:0031.4[facility] NyxwycqRWGURTZBIZ2969-18-83 10:30:00 42.0[facility] WxfrtxeJMHMPSCQGO8377-70-91 10:30:0015.0[facility]annHEMATOLOGY 2011-03-25 10:30:0033.9[facility] RvnjvjgSRXCHOKSZY5903-37-44 10:30:00 Test Item Value Reference Range Interpretation Comments MCH (test code = MCH) 31.0 pg 27.0-31.0 N [facility] WvsfaojYIELYWQLZZ1662-60-33 10:30:0091.4[facility]annHEMATOLOGY 2011-03-25 10:30:0036.8[facility] PxdyikmUFLNSNHOPG0242-56-28 10:30:0012.5[facility] HdnkcfnAZLWUDHOZD7487-80-35 10:30:0010.0[facility] YknmhjlLPEQQRNIQL7852-48-65 10:30:73397.0[facility] OwrtihwYDECZXJHKY8943-35-94 10:30:004.03[facility] JHYHJCHQRD9843-46-45 10:30:0010.1[facility] XlngorbMSKPXLGNN4838-68-14 13:51:00 Test Item Value Reference Range Interpretation Comments A/G Ratio (test code = A/G Ratio) 0.7 1 0.7-1.6 N [facility] LsacgvzGDZDJEFZK5567-34-53 13:51:000.2[facility] HermannCHEMISTRY 2011-03-24 13:51:003.2[facility] UodkejgWKECAESWH5889-48-14 13:51:005.6[facility] OsastusVXQEHPNQC8260-05-08 13:51:002.4[facility] CdciwvzVPUDOQPAU7318-90-11 13:51:000.2[facility] CqrpdoyDCAXOJPQC4303-20-45 13:51:06327.0[facility] OUFYBPIBY9095-91-32 13:51:01503.0[facility] MzvidirPEKPFRJBT8444-10-18 13:51:000.4 [facility] MhmzmjgMDCKOLNMB9093-76-26 13:51:67276.0[facility] HermannCHEMISTRY 2011-03-24 10:08:001.6[facility] IoubxdoQFPIOGEKC1847-38-09 10:08:0015.6[facility] PkdtdlyRYQCQFWGO9063-70-82 10:08:0021.0[facility] IvbugpdXEROYGOLC6350-23-46 10:08:003.6[facility] FkruixyJBYKEDJNK1741-16-40 10:08:77865.0[facility] JYSAACTSY5883-11-50 10:08:007.7[facility] LtpoqsdGBWXIDYVR0504-66-44 10:08:50286.0 [facility] BgtfpdpFOGOAMKSM8354-06-26 10:08:0023.0[facility] HermannCHEMISTRY 2011-03-24 10:08:001.7[facility] RiciefwAXKDIEAKD3777-95-22 10:08:22616.0[facility] IxcqmtqBHLJZAZAQA2511-99-31 10:08:00 Test Item Value Reference Range Interpretation Comments PT (test code = PT) 14.8 s 12.0-14.7 H [facility] FoldonhXTUTQXJZUQ4914 10:08:00 Test Item Value Reference Range Interpretation Comments INR (test code = INR) 1.16 1 0.85-1.17 N [facility] NdcsjnpMSCHUIHVXR2139-94-83 10:08:00 Test Item Value Reference Range Interpretation Comments PTT (test code = PTT) 34.9 s 22.9-35.8 N [facility] MziluauNKOIOPCKBU3749-80-02 10:08:000.1[facility]annHEMATOLOGY 2011-03-24 10:08:004.1[facility] ZtgsfzfIUBZGRCLHL9505-99-59 10:08:002.8[facility] FrszzojWFRZHCXJXN2549-31-97 10:08:000.8[facility] YguiwfaWEHWQFXLJP8607-52-10 10:08:001.8[facility] ReumqrcDNHIBICCMO3146-27-15 10:08:0028.5[facility] SIOXQAQVHH2200-59-08 10:08:008.6[facility] RcbmvylXQKXZUOLRL2898-91-99 10:08:00 19.0[facility] VfvnnoqUKGNBACZDN2243-72-53 10:08:001.3[facility]annHEMATOLOGY 2011-03-24 10:08:0042.6[facility] ExkcsxfIELQGKBIYN3768-09-77 10:08:009.7[facility] JeurefoKOJSPDGURS7218-22-59 10:08:003.67[facility] DehywpyVESWSDNOEW9536-36-91 10:08:0034.9[facility] MgupwdyOYWNUJFIFW7885-20-70 10:08:0015.1[facility] VQKGPMFTKU7827-05-16 10:08:12455.0[facility] ErdsdpoZSABLMHBZR7059-67-25 10:08:00 90.5[facility] YvkhgziTFSVPDUOKR7044-19-30 10:08:00 Test Item Value Reference Range Interpretation Comments MCH (test code = MCH) 31.6 pg 27.0-31.0 H [facility] EedntdmTPGMGBXDCT2900-23-76 10:08:009.5[facility] HermannHEMATOLOGY 2011-03-24 10:08:0011.6[facility] WsymsqrKGHRRXIUBO7586-48-57 10:08:0033.2[facility] NjkyztiUIIIXUNYQH2296-23-13 10:08:00Negative *NA*(03/24/2011 05:08:00) ?? [facility] ZmxezzzNXZMBYCYB4589-67-75 10:24:0036.0[facility] HermannCHEMISTRY 2011-03-23 10:24:51345.0[facility] AjsigceOSKRTGTVB0182-52-69 10:24:0097.0[facility] UahxmqsJOBQVJTGE0844-23-36 10:24:0022.0[facility] OwyoyksXFXBUMXAF1298-11-67 10:24:001.5[facility] NuwdyuwGPZYEQGUW6628-29-75 10:24:0020.0[facility] ZAUKBMCOW3648-66-01 10:24:39070.0[facility] DsbtxbjZZWGPFIHU4938-14-12 10:24:007.8 [facility] AdsncdzOGLCZAKZN6415-06-76 10:24:01430.0[facility] HermannCHEMISTRY 2011-03-23 10:24:004.7[facility] LktbdvqXMIJDLJHW2075-18-39 10:24:0019.2[facility] YijfodsUPNTFMOUD4684-58-54 10:24:002.8[facility] PmqrvhuBETGNJUOV5982-77-99 10:24:001.9[facility] UrsdfzcRDOQAXTUF0713-43-19 10:24:40240.0[facility] AUAFHCXAB8352-50-32 10:24:00 Test Item Value Reference Range Interpretation Comments A/G Ratio (test code = A/G Ratio) 0.7 1 0.7-1.6 N [facility] AihsltlZFEDBQRSO1782-66-19 10:24:00 Test Item Value Reference Range Interpretation Comments B/C Ratio (test code = B/C Ratio) 15.0 1 6-25 N [facility] RlpyyirBDWNJNSSX4369-07-77 10:24:001.0[facility] HermannCHEMISTRY 2011-03-23 10:24:38540.0[facility] XarjkfcZUWJYXTKA3482-31-96 10:24:86365.0 [facility] AbgnendTVJRBBIHG9040-43-88 10:24:003.2[facility] HermannHEMATOLOGY 2011-03-23 10:24:0014.8[facility] AmuubkeMVOXUAFIIG6450-24-59 10:24:009.8[facility] DiufwhiGDIQOWEHHD9569-02-22 10:24:29014.0[facility] VyckydbEVKGXOTYOW2906-84-13 10:24:00 Test Item Value Reference Range Interpretation Comments MCH (test code = MCH) 31.0 pg 27.0-31.0 N [facility] LrzzlfeZBUUMTGHXA9914-12-16 10:24:0034.1[facility] HermannHEMATOLOGY 2011-03-23 10:24:0032.7[facility] SpuglvuJZWYZLXULE3565-47-70 10:24:0091.0[facility] VcyesxkZEKRSSVNWX7614-45-37 10:24:0011.2[facility] OyhevmzMBRXUKMBOQ0811-58-50 10:24:006.7[facility] RkjuiejXHKMVZOODW2400-53-05 10:24:003.6[facility] FXMLVMDKPQ7157-72-49 10:24:00Slight *ABN*(03/23/2011 05:24:00) ??[facility] ThcumgpTOVMVHTIMB8746-76-65 10:24:002.1[facility] PcimqwrVWXEIUYALB4974-11-71 10:24:002.7[facility] SjeotixENCKREIWSC9133-18-60 10:24:000.9[facility] ATWSMTFCAN0775-15-22 10:24:00Normal (03/23/2011 05:24:00) ??[facility] QISHBNCTTJ6056-81-46 10:24:0015.0[facility] OubdfwvPQXGBQSAQN5547-48-12 10:24:00 0.0[facility] BmexwhzXACYDXRDJS8438-00-12 10:24:001.0[facility] HermannHEMATOLOGY 2011-03-23 10:24:001.0[facility] OencszmRFNNYDXIFC2412-18-10 10:24:001.0[facility] NmentpjDWEAOHYIQS6255-47-10 10:24:0031.0[facility] RojlodsKMSDDYGQGK5416-07-43 10:24:0013.0[facility] QdjjmksCRZYCHAEHB7652-44-99 10:24:0039.0[facility] XZJVGIVNQF7763-20-41 10:24:000.1[facility] OpnvznmUHCHQJTLLE1888-56-01 10:24:00 10.0[facility] KhlfmxfJUUELOQJOL4494-05-70 22:20:00??[facility]annURINALYSIS 2011-03-22 22:20:003.0[facility] BsfxltqYLINBMTEWJ7057-22-28 22:20:00Occasional /HPF *NA*(03/22/2011 17:20:00) ??[facility] NnrqzqxPLOGTPKXFS2159-36-66 22:20:00 Few /LPF *NA*(03/22/2011 17:20:00) ??[facility] WuyvckvLBMZZNVEDZ6235-04-67 22:20:00Few /LPF *NA*(03/22/2011 17:20:00) ??[facility]annURINALYSIS 2011-03-22 22:20:00<1.0[facility] DudyjhjVHKYROIGRU5982-38-36 22:20:00Negative (03/22/2011 17:20:00) [facility]JsfzmxuZRNKIRSECA1435-47-92 22:20:00Negative (03/22/2011 17:20:00) ??[facility] CampusQowungsQTILDFUGMH5287-22-06 22:20:22299 mg/dL *ABN*(03/22/2011 17:20:00) ??[facility] CampusGeoqvycAXADXQOLUL4629-32-50 22:20:0010 mg/dL *ABN*(03/22/2011 17:20:00) ??[facility] CampusAkpnnnqXUFFTZYGEI9330-72-11 22:20:00 Negative *NA*(03/22/2011 17:20:00) ??[facility] CampusEoyhtjsBNPECOSEFZ6209-67-39 22:20:00Moderate *ABN*(03/22/2011 17:20:00) ??[facility]annURINALYSIS 2011-03-22 22:20:00Negative mg/dL *NA*(03/22/2011 17:20:00) ??[facility] NTNPKTPYMB9607-37-86 22:20:00 Test Item Value Reference Range Interpretation Comments UA Spec Grav (test code = UA Spec 1.016 1 N Grav) [facility] CampusPtqoteaZQEJUCMNYB0314-12-82 22:20:00 Test Item Value Reference Range Interpretation Comments UA pH (test code = UA pH) 5.5 1 5.0-8.0 N [facility] CampusTswdleyENJIXXPSVX1628-15-93 22:20:00Yellow *NA*(03/22/2011 17:20:00) ?? [facility] CampusOccaijkCAMWYUMYHG2398-68-14 22:20:00Slight *ABN*(03/22/2011 17:20:00) ??[facility] YbnrwcjSOAXJUOOP4127-22-41 14:40:000.2[facility] HermannCHEMISTRY 2011-03-22 14:40:000.1[facility] RubzypcWNAKUYJXQG2991-11-94 14:40:00Negative *NA*(03/22/2011 09:40:00) ??[facility] JozuwbpSCMCDNALRA6285-11-08 14:40:00 Negative *NA*(03/22/2011 09:40:00) ??[facility] NnznbqjBHRVGKFKCG7225-93-60 14:40:00Negative *NA*(03/22/2011 09:40:00) ??[facility] HermannIMMUNOLOGY 2011-03-22 14:40:00See Note 9(03/22/2011 09:40:00) ??[facility]annCHEMISTRY 2011-03-22 12:05:001.67[facility] FpmfcrtRBHAUMIQQ7194-08-62 12:05:000.044[facility] HermannBEDSIDE GLUCOSE RMMNTNL8486-38-23 17:19:76911.0[facility] HermannBEDSIDE GLUCOSE IJZKHVG0857-61-46 12:36:80258.0[facility] AjhaibqLHYWGTKJG8627-20-41 08:07:0018.5[facility] IxbbnygZWZZLOLTW1015-73-42 08:07:003.5[facility] EOWORQFAN5297-54-03 08:07:0021.0[facility] KujgscoOZLYHNFFR2251-98-72 08:07:00 147.0[facility] NthcwmjUHEHNWCAG4899-13-17 08:07:001.4[facility] HermannCHEMISTRY 2011-03-15 08:07:18710.0[facility] HsozwkqBSCLHPSHK2466-65-27 08:07:008.1[facility] EskzkxjPQMZUIVTN2983-42-31 08:07:0097.0[facility] UvwblsjCXHIWDBND4359-73-77 08:07:0021.0[facility] DsbrogmHBKMNXNUU7983-65-16 08:07:001.7[facility] DPPLHNHELX4717-23-14 08:07:0016.7[facility] JcfbottAELZEWQKCE1815-42-64 08:07:00 12.4[facility] HjdexwsYXFGPHOCZT2802-29-70 08:07:0063.3[facility] HermannHEMATOLOGY 2011-03-15 08:07:000.6[facility] UzlfyqkPBOVBPIYTJ8504-73-40 08:07:001.1[facility] WpwvymgZGUIEOKZYG8163-43-84 08:07:000.1[facility] MxjtpfhEXLZYTOBOL1539-81-93 08:07:001.5[facility] UvxpqdfCVUHFPUUUE2239-73-16 08:07:005.8[facility] BQIVYXOXPT4886-21-02 08:07:001.3[facility] IoiugpgPFWHMBEIAC2013-14-54 08:07:006.3 [facility] OktphhaXNOJROMCXA1821-45-12 08:07:00 Test Item Value Reference Range Interpretation Comments MCH (test code = MCH) 31.6 pg 27.0-31.0 H [facility] NknyteuPJHNZZRCTV9816-59-91 08:07:003.56[facility] HermannHEMATOLOGY 2011-03-15 08:07:0090.7[facility] NnqmhbjPSQDFSYWKF3792-61-42 08:07:0032.3[facility] LkradizMWEORIXHVD5540-38-80 08:07:0011.3[facility] DinueinIWWDXBKZSB8193-15-05 08:07:009.1[facility] UtzvgrqDZRQICIRZT8153-61-22 08:07:0010.1[facility] GTLLYXFDML4887-69-87 08:07:61633.0[facility] MyzviyeVWBTQBLYBA5208-57-53 08:07:00 14.7[facility] AmielpeDASKGISLVD8331-90-88 08:07:0034.8[facility] HermannBEDSIDE GLUCOSE AILVKLF5539-23-47 02:08:79269.0[facility] DqtogmrBLUPOMIAJ5531-99-29 14:30:002.0[facility] LekwqydRUKNNAKLD1970-27-34 07:41:000.042[facility] PWXHVSTWR1568-87-06 07:41:0031.0[facility] VhsmpchSJCZBCONV0748-86-72 07:01:001.6 [facility] QaebvmsCOZFEBLHHS0259-99-92 07:01:00 Test Item Value Reference Range Interpretation Comments INR (test code = INR) 1.15 1 0.85-1.17 N [facility] TukhbroZTAGWCMWKK7314-47-77 07:01:00 Test Item Value Reference Range Interpretation Comments PT (test code = PT) 14.7 s 12.0-14.7 N [facility] EdtbvpmNCGBODVEJY8040-61-21 07:01:00 Test Item Value Reference Range Interpretation Comments PTT (test code = PTT) 30.3 s 22.9-35.8 N [facility] KaovhccDRPKOMHMQ8939-92-06 06:50:0049.0[facility] HermannCHEMISTRY 2011-03-14 06:50:0023.0[facility] ZwywujaSOCLOQWTI8030-57-34 06:50:004.3[facility] JmzmubgWQADBALKU3315-23-17 06:50:00 Test Item Value Reference Range Interpretation Comments A/G Ratio (test code = A/G Ratio) 0.8 1 0.7-1.6 N [facility] YnxifqiMISINHWSG4511-67-86 06:50:003.4[facility] HermannCHEMISTRY 2011-03-14 06:50:0033.0[facility] MfdlxcbRMAEAESZV7736-96-14 06:50:0027.0[facility] MgvdztfSQSVTAANC2954-57-06 06:50:000.4[facility] TridqzaNPIWOCXAX6593-37-14 06:50:006.2[facility] JbhtnbaKJSMHHRLP2898-29-12 06:50:64018.0[facility] OGSXOLSNG5339-03-86 06:50:002.8[facility] XybgbyrAEXAWHZFK4777-22-90 06:50:00 Test Item Value Reference Range Interpretation Comments B/C Ratio (test code = B/C Ratio) 14.0 1 6-25 N [facility] LtxjsyoGEFAGRAYI3674-73-56 06:50:008.4[facility] HermannCHEMISTRY 2011-03-14 06:50:0021.8[facility] HlzfvxyLPYFDOMGW8910-76-73 06:50:0019.0[facility] OvoksxnLCXLQSPTE7455-56-35 06:50:94553.0[facility] ZyrruudEXEEPLFKN1855-22-22 06:50:97016.0[facility] YtwlrouCGIDRLPVY2651-46-05 06:50:003.8[facility] LTCJDYQGV3859-14-04 06:50:0020.0[facility] IgzlnbmWJYGQWITD8483-67-59 06:50:001.4 [facility] EpohmblOOLVZTMNO0242-20-75 06:50:0091.0[facility]annCHEMISTRY 2011-03-14 06:50:001.2[facility] DbyynyaJRJPMUVBAU5280-60-55 06:50:0010.3[facility] MxojfueSUPIALKRBZ6447-08-85 06:50:006.2[facility] MntgzblMWMEWTOVHB2909-48-09 06:50:0061.3[facility] RlotxhuNUACDVNCMF7530-96-07 06:50:0022.2[facility] BFDWBKOGVW8496-15-65 06:50:000.0[facility] GszahvcSUPQAHBYQX7105-69-67 06:50:001.2 [facility] AktwcbxYYBFUNNLME7783-32-75 06:50:007.3[facility] HermannHEMATOLOGY 2011-03-14 06:50:000.0[facility] BxzmkivNWBVOPKWHR2080-90-35 06:50:000.7[facility] ImrlujnUUSEMFIKCY0642-84-79 06:50:002.6[facility] EzzlkekFYQLKWIIEX1070-38-03 06:50:00Slight 52*ABN*(03/14/2011 01:50:00) ??[facility]annHEMATOLOGY 2011-03-14 06:50:00Slight 51*ABN*(03/14/2011 01:50:00) ??[facility] IZAQZMWDPV0581-00-92 06:50:001+ 49*ABN*(03/14/2011 01:50:00) ??[facility] XWVVHNRYWB0764-32-45 06:50:00Slight 50(03/14/2011 01:50:00) ??[facility] IVAOGNDRRT1381-75-41 06:50:0013.3[facility] KacwjjtHGACBYMRIA4821-61-70 06:50:00 11.8[facility] YbvzacgMSBTVRZEAR4836-54-85 06:50:004.18[facility]annHEMATOLOGY 2011-03-14 06:50:0090.6[facility] EbjxdscPVRESZLWFI9219-90-24 06:50:00 Test Item Value Reference Range Interpretation Comments MCH (test code = MCH) 31.8 pg 27.0-31.0 H [facility] YbmpmjnFMXLAKOJVO8657-72-80 06:50:0037.9[facility]annHEMATOLOGY 2011-03-14 06:50:0010.0[facility] VawjlriNFQISLYSCW0869-20-12 06:50:0013.5[facility] BiircvfQYIPABAYPX7467-77-51 06:50:54975.0[facility] IacciytJBFFDJSYJX7193-07-46 06:50:0035.1[facility] MlgngmnGOLWKCJVD7728-58-53 06:50:0027.0[facility] ECMAWJIZY9596-26-25 06:50:003.2[facility] ZatlircQDQVJXRTX0242-52-84 06:50:002.9 [facility] AhpvuhsMPKUOIRQB5281-98-12 06:50:0032.0[facility]annCHEMISTRY 2011-03-13 06:50:006.1[facility] VrupwgnOCQRFPRTD7247-57-42 06:50:00 Test Item Value Reference Range Interpretation Comments A/G Ratio (test code = A/G Ratio) 0.9 1 0.7-1.6 N [facility] QeewelyCKBZOFNAD2335-53-45 06:50:000.3[facility] HermannCHEMISTRY 2011-03-13 06:50:000.4[facility] NkoootvWOJJSYSYO9312-20-73 06:50:000.1[facility] YuuqwamCMRIGREZF2900-40-72 06:50:95125.0[facility] HermannBEDSIDE GLUCOSE TESTING 2011-03-07 16:38:42068.0[facility] HermannBEDSIDE GLUCOSE ZAYXHBD5031-88-50 10:32:24169.0[facility] HermannBEDSIDE GLUCOSE KBKVUMM8377-36-31 02:38:45798.0 [facility] XsiwjxuQKOIUDRMP8864-39-44 07:36:00>60.0[facility] HermannCHEMISTRY 2011-03-05 07:36:31774.0[facility] CsqfbkpRRXBYBAAM0954-29-66 07:36:04107.0 [facility] MwqijcvRPUXUDZZY2109-55-39 07:36:003.8[facility] HermannCHEMISTRY 2011-03-05 07:36:008.4[facility] HvsaeesXZGEDHCSB6884-82-94 07:36:0015.8[facility] XglmdefZRKZQSIFB2307-28-00 07:36:0025.0[facility] IiylryaMHZIKUQZL9002-92-51 07:36:0016.0[facility] ZydkgknBOKRJDAZT1976-69-34 07:36:000.9[facility] OKABZICVE0236-91-19 07:36:0077.0[facility] MsdhuyzGHSCFKIOXT6356-92-57 07:36:00 45.6[facility] GajgyenXGHSTEZWYI2429-43-51 07:36:0010.4[facility]annHEMATOLOGY 2011-03-05 07:36:003.5[facility] XezpnjaNPFIJYRBFW3484-05-48 07:36:0038.5[facility] NyfidquHCXQMIOMEB6442-18-99 07:36:000.4[facility] WffuoddZVRHRNIAGD1870-24-08 07:36:000.2[facility] HvapxczFUNPNCRPWJ0276-11-74 07:36:002.0[facility] BWSZTFPOGE5732-34-51 07:36:005.8[facility] RrqqmquIVBECFUGMJ6047-11-97 07:36:004.9 [facility] ZpplrtdQCBTWRVTOH5636-47-72 07:36:001.3[facility]annHEMATOLOGY 2011-03-05 07:36:009.9[facility] JqbccxfTUOQFXDAVR8795-59-50 07:36:0092.6[facility] XihehyiHHKKNGQUSK2459-54-81 07:36:003.08[facility] JxcmvizCGXEYXXJIU7023-82-65 07:36:0012.7[facility] UochbzdIGAZVYMBEH2289-31-77 07:36:00 Test Item Value Reference Range Interpretation Comments MCH (test code = MCH) 32.0 pg 27.0-31.0 H [facility] WnkpmxmXKHQCHFHLB4965-99-61 07:36:0028.5[facility]annHEMATOLOGY 2011-03-05 07:36:0034.6[facility] OmpuekySJNPQRFOPP6797-61-06 07:36:27721.0 [facility] RmdktuxUIWQAYUJNY1906-12-82 07:36:0016.5[facility] HermannHEMATOLOGY 2011-03-05 07:36:009.1[facility] HutpbwxIMMMLMMYBK5793-16-34 10:21:08982.0[facility] XdwzijcXPUOIZSRFE7143-70-11 10:21:0016.4[facility] KuwgyefJZAHTZNDZH3775-49-34 10:21:0033.6[facility] VcucevbHIOFYKRPSQ3220-20-45 10:21:00 Test Item Value Reference Range Interpretation Comments MCH (test code = MCH) 31.8 pg 27.0-31.0 H [facility] SvidekmRZTNOWNMMO1077-53-46 10:21:0012.4[facility] HermannHEMATOLOGY 2011-03-03 10:21:009.4[facility] RnaommwPIQQKAHFSE0331-32-52 10:21:0094.6[facility] RklybotHQXFDYGXOW9390-39-13 10:21:0030.8[facility] KimbhsqRJLJZNJCMA7473-32-34 10:21:0010.4[facility] EabmiewSMYPRBJMFT8473-43-84 10:21:003.25[facility] GHECYPSGKN1281-95-85 10:03:0016.0[facility] QqcbvgpXWSJIUETFO7815-12-87 10:03:00 9.1[facility] JnlcihaCLCBRICFZO8265-19-79 10:03:03121.0[facility] HermannHEMATOLOGY 2011-03-02 10:03:003.23[facility] CevehdmXXCLJZAJWF0192-28-17 10:03:0094.5[facility] XvowsnuUWWHHZGRNP9185-92-34 10:03:0030.5[facility] QvvxeimGVXDOEPXOD6742-54-68 10:03:0010.3[facility] JcymtpmCAEHWTBVAC3863-95-05 10:03:0033.6[facility] LMSTMDMXYZ1162-87-03 10:03:0012.7[facility] WqcvcskKGZEFNKNSO4088-05-84 10:03:00 Test Item Value Reference Range Interpretation Comments MCH (test code = MCH) 31.8 pg 27.0-31.0 H [facility] HpnvwimQEXZGMGGQT6434-70-84 20:38:00[facility] 2011-03-01 20:38:00Clear (03/01/2011 15:38:00) ??[facility]annUR[facility] 2011-03-01 20:38:00 Test Item Value Reference Range Interpretation Comments UA Spec Grav (test code = UA Spec 1.009 1 N Grav) [facility]ThexcbtLHPNXHIHVH6493-34-08 20:38:00Yellow *NA*(03/01/2011 15:38:00) ?? [facility] NoghfhhRUQXTAPHFU7247-24-55 20:38:00 Test Item Value Reference Range Interpretation Comments UA pH (test code = UA pH) 5.5 1 5.0-8.0 N [facility] CampusYcnedrbVFXSKTCREV8228-62-80 20:38:00Negative mg/dL *NA*(03/01/2011 15:38:00) ??[facility] CampusJvpcfnkXLGFBHXSOI7501-96-21 20:38:00Negative mg/dL *NA*(03/01/2011 15:38:00) ??[facility] CampusNxddaucGUCMDUGJPU4450-17-43 20:38:00 Negative *NA*(03/01/2011 15:38:00) ??[facility] CampusQdmifsrBAQSGPUMPC5895-33-96 20:38:00Negative (03/01/2011 15:38:00) ??[facility] CampusYeyhnbgGWRMVGZQXC8832-25-65 20:38:00<1.0[facility] GwcwzeqJAWVJSLBIE8556-21-54 20:38:00Negative (03/01/2011 15:38:00) ??[facility] GhlavhqEBSFUPMLIR0669-68-58 20:38:00Negative (03/01/2011 15:38:00) ??[facility] CampusSqndtlbJJLBXJESAG9229-23-36 20:38:00Few /LPF *NA*(03/01/2011 15:38:00) ??[facility] CampusNwhwyipEWUVXZKMSD1282-79-25 20:38:00 Moderate /LPF *ABN*(03/01/2011 15:38:00) ??[facility] CampusGmgsocxITVZHFSBHZ8559-77-50 20:38:001.0[facility] XwfytoxPNXBIDUFYA5449-68-87 20:38:0010 mg/dL *ABN*(03/01/2011 15:38:00) ??[facility] WyjdjxnVYWBDPSUQZ0839-69-67 08:19:005.7 [facility] YcdfzkgKBSMVNWYGA8098-40-82 08:19:004.8[facility]annHEMATOLOGY 2011-02-28 08:19:001.0[facility] AiizkczMJFXVAIMWJ4408-60-67 08:19:008.9[facility] KmcjrzxXISALPFJDY2525-12-68 08:19:002.8[facility] OtagjnbNNADLFRSYR4996-93-89 08:19:0047.3[facility] MgplxflOJZTLQALIO0657-40-95 08:19:0040.0[facility] WACGTBNWAW0706-51-74 08:19:000.1[facility] NaajwxyXDWRKXMDRT8784-29-34 08:19:001.1 [facility] SkvzscjAUHXTATUET0055-43-67 08:19:000.3[facility] HermannCHEMISTRY 2011-02-27 08:43:002.8[facility] ZkwqtntEEALUSNEC9675-51-54 08:43:00 Test Item Value Reference Range Interpretation Comments B/C Ratio (test code = B/C Ratio) 14.0 1 6-25 N [facility] MuuaeuiGFNJXUFAX2513-22-25 08:43:0013.8[facility] HermannCHEMISTRY 2011-02-27 08:43:00 Test Item Value Reference Range Interpretation Comments A/G Ratio (test code = A/G Ratio) 0.8 1 0.7-1.6 N [facility] RgkttfjBYXDLHDNL1930-53-10 08:43:005.0[facility] HermannCHEMISTRY 2011-02-27 08:43:008.4[facility] ShboslxTJAPNTHVR4031-23-30 08:43:0024.0[facility] FcbpndtREVZVVQUT4905-70-18 08:43:002.2[facility] JkafvrzXFPIPRACQ4234-22-70 08:43:000.3[facility] GzptefiEVENGFYIH3918-19-91 08:43:0021.0[facility] EPWFYZFSO5785-00-64 08:43:0098.0[facility] CinufxgNVIJDDBFA8420-58-90 08:43:0028.0 [facility] AixglwtAMMWDOUSY5447-59-27 08:43:0010.0[facility] HermannCHEMISTRY 2011-02-27 08:43:003.8[facility] AcnbutoSFUEULWLE4810-52-69 08:43:23626.0[facility] NkhzlphPSZVYEVFR9330-52-43 08:43:000.7[facility] EapeygtRMDCQNQXI1213-14-07 08:43:06359.0[facility] BguemhhCRZKDHJDS8371-77-28 08:43:38277.0[facility] BOMEVPRQCH7924-82-65 08:43:000.9[facility] ZewpdszGWCIWITBIH6886-64-98 08:43:000.3 [facility] TecscckQAHYPFNCAX6179-93-46 08:43:003.3[facility]annHEMATOLOGY 2011-02-27 08:43:000.1[facility] TlccdtiRHZDJABRSL3703-90-52 08:43:001.2[facility] HjuzllsNDRDGRXWMX6089-53-15 08:43:006.0[facility] IilihgyNFWWTXIAHW6376-54-80 08:43:008.3[facility] KrlrxxcTETBIPTNFB5397-37-74 08:43:003.1[facility] SAFHIAQPYG8094-80-52 08:43:0056.6[facility] CkrwexwWEMTXJRWZZ3952-40-64 08:43:00 30.8[facility] HermannBEDSIDE GLUCOSE GBHWKPS1023-10-12 22:17:28186.0[facility] HermannBEDSIDE GLUCOSE KSVYGJM2188-89-19 18:30:50090.0[facility] HermannBEDSIDE GLUCOSE ALBGPED0837-52-36 11:15:73826.0[facility] EhzjhbuZGZFSSDIU9103-68-77 06:52:0015.6[facility] SkiarikTRHODYZHE4073-47-21 06:52:0025.0[facility] YJZXJXMUH0093-00-17 06:52:007.9[facility] AbpjlscZTWHLUXFV6648-19-15 06:52:58176.0 [facility] IgipapyXEURPWZLP6550-99-72 06:52:003.6[facility] HermannCHEMISTRY 2011-02-26 06:52:000.5[facility] LavhwyyMAHWDYRTK0988-04-86 06:52:50491.0[facility] FutssoaUNFXHBVRS6992-14-87 06:52:009.0[facility] JprjswgUWJLMKVDJ4147-75-92 06:52:52572.0[facility] MxavwkxPYRBMABBOX6853-53-60 06:52:0010.5[facility] AQGDFZFGZO2536-58-98 06:52:0031.2[facility] XtipcoeZHCKGPTMQ1537-68-27 08:43:001.9 [facility] LhvqkvlFEUTDKCHX2659-03-08 08:43:007.9[facility] HermannCHEMISTRY 2011-02-24 08:43:98200.0[facility] PamfmggUQSWCXQCC1896-51-77 08:43:0024.0[facility] FzlixyiTPUEMVNUP5262-25-56 08:43:68612.0[facility] CfwsduiXTXVUWYUC5327-29-48 08:43:000.6[facility] MtcbzqdFRWAQRRDW1704-45-30 08:43:0012.0[facility] YJECMAGJJ3573-54-20 08:43:0089.0[facility] NrpovssEXGAKBQKL8250-43-43 08:43:003.7 [facility] VkiiintIRJEWELCZ9989-94-07 08:43:0015.7[facility]annHEMATOLOGY 2011-02-24 08:43:0030.7[facility] OmdfgqgDPECAAYFVT7106-22-75 08:43:0010.3[facility] BwuqigxLCNPGEDETW6457-32-39 08:43:57358.0[facility] MhhbeyyWXFLJIOMZ7488-36-97 07:22:001.7[facility] BpbsnpzQGQWZPRAB6511-99-82 07:22:004.64[facility] RQOZZOCIZ0998-91-86 07:22:001.1[facility] TpdbgwrGVWENLWYQ7496-94-38 07:22:001.16 [facility] VixhywcYOWDEUXCC5182-38-24 07:22:004.4[facility] HermannCHEMISTRY 2011-02-21 07:22:0016.9[facility] WtupanoXENMCDFZA2156-73-24 07:22:006.0[facility] OtpvsvvSBFVCPZTQ7633-56-69 07:22:000.4[facility] WcprsuoWVYKSIEXX7178-19-59 07:22:43630.0[facility] HcicssbSCZQAJRSM9976-05-81 07:22:004.9[facility] FRGMKGDCP5058-82-40 07:22:25787.0[facility] JyvrglaNIGMDLQXM2228-37-40 07:22:007.7 [facility] EuignlgEOMFKLEYP1699-81-61 07:22:82002.0[facility] HermannCHEMISTRY 2011-02-21 07:22:0019.0[facility] CebiyemTVYIBJCHD0055-48-25 07:22:003.7[facility] WcjxyapPBVFDWPWSW6019-67-89 07:22:000.6[facility] KvnkaxtVQZDFYAINU5844-27-87 07:22:000.9[facility] IqkwvtcMRTKCQIYUH7082-91-73 07:22:000.0[facility] KVUYOLWZQD0741-46-57 07:22:006.9[facility] MhqqsumVLDEDMXZHH7323-72-50 07:22:009.6 [facility] WfnzyglTLKBUCXCXK1675-27-43 07:22:005.2[facility] HermannHEMATOLOGY 2011-02-21 07:22:000.3[facility] ClwpayiWNWIZVXDJM9812-03-29 07:22:002.3[facility] DqfcrukOGEQJXQIDO9163-77-71 07:22:0057.5[facility] XivnkpsXTMHWSSRVS4180-97-54 07:22:0025.7[facility] WwlkxbzJQHPEUVZEA2089-41-99 07:22:0034.1[facility] OEGPXFPSEM9097-38-45 07:22:68720.0[facility] ObdveycRPCXAQHABB0551-40-00 07:22:00 16.2[facility] KdpmhuuYVJPPTOGNO7968-03-57 07:22:007.8[facility]annHEMATOLOGY 2011-02-21 07:22:0032.4[facility] ZwbwoieSGCSZRZQFR6655-31-60 07:22:0096.0[facility] MvuhtfcSNVZPWRXLW2621-94-62 07:22:00 Test Item Value Reference Range Interpretation Comments MCH (test code = MCH) 32.7 pg 27.0-31.0 H [facility] DixoeaaPDHHFGFNLU5855-36-22 07:22:003.38[facility]annHEMATOLOGY 2011-02-21 07:22:0011.0[facility] LnmsibaQMEIKLTVYL7099-77-81 07:22:009.0[facility] YthqbwgMUTXXFNQL6975-77-32 14:50:003.1[facility] FmqxyriMIKVCFQPW5162-74-04 05:50:003.4[facility] EnqlerrYKEGXRLFX1459-45-37 05:50:005.08[facility] EVMYUIAFW9574-38-79 05:50:001.28[facility] GrhdpfpARLHSOZXR3534-55-57 05:50:001.27 [facility] BvkawkxOQRZXBZXU6006-89-61 05:50:005.12[facility]annHEMATOLOGY 2011-02-20 05:50:0095.8[facility] OndpewfRZNHGIYMDN8090-62-82 05:50:67716.0 [facility] IvmcirhLQCYNGIYDO5533-60-31 05:50:007.8[facility]annHEMATOLOGY 2011-02-20 05:50:00 Test Item Value Reference Range Interpretation Comments [facility] (test code = MCH) 32.2 pg 27.0-31.0 H [facility] OxbdhsuJIJXKHRLBE2827-50-73 05:50:0033.7[facility]annHEMATOLOGY 2011-02-20 05:50:0016.5[facility] XoiecneKJUBBPPXDG5827-02-29 05:50:003.19[facility] AlyghrlFNIWSCCRDH9709-22-07 05:50:006.9[facility] AwthgirBOJANNYACV9460-90-62 05:50:000.4[facility] UrzyvdkTCIBVKULGO1380-09-15 05:50:000.0[facility] GFAMIVDSMU3755-48-04 05:50:000.6[facility] CkapucsSKCBJZVYQW7096-80-79 05:50:00 63.4[facility] GvzknrtSEEUIIWQGA0056-00-25 05:50:0020.5[facility]annHEMATOLOGY 2011-02-20 05:50:009.3[facility] YrpqeuePALGSEFVKW8310-77-11 05:50:006.4[facility] AjpanvjQKQZHOFUKS2765-41-18 05:50:000.4[facility] SagwixxGXNSWFNDEK1306-83-91 05:50:004.4[facility] LzecntgZNVMDOREVF9661-17-91 05:50:001.4[facility] MMXTVSMMJ8133-12-63 21:20:001.02[facility] NgzveytJYIJOPJDJ8088-00-27 21:20:004.08 [facility] GtpimqaURJVGOKEX9273-16-69 21:20:004.12[facility]annCHEMISTRY 2011-02-19 21:20:001.03[facility] EhvfkztKSOLHBVYG0639-19-33 21:20:0066.0[facility] WhaqidsIUTRLRLGK1373-60-59 21:20:000.8[facility] PyppmfnOXUOUGEOS2176-67-07 21:20:002.3[facility] EyhnbemBFWLRCURG2321-42-27 21:20:004.8[facility] PHCYVNRCT5898-54-81 21:20:0067.0[facility] PclahesUPGKJLUKD5672-59-72 21:20:002.5 [facility] AmpsrckMYUKTROUS9416-37-18 21:20:00 Test Item Value Reference Range Interpretation Comments A/G Ratio (test code = A/G Ratio) 0.9 1 0.7-1.6 N [facility] TypmkobGZRJGUUQY4894-40-70 21:20:85578.0[facility]annCHEMISTRY 2011-02-19 21:20:00 Test Item Value Reference Range Interpretation Comments B/C Ratio (test code = B/C Ratio) 20.0 1 6-25 N [facility] BeqcghnVZLMXSUROC3219-94-23 21:20:00 Test Item Value Reference Range Interpretation Comments PTT (test code = PTT) 29.4 s 22.9-35.8 N [facility]TwhukjsAHONWXJZYY9078-60-52 21:20:00 Test Item Value Reference Range Interpretation Comments PT (test code = PT) 13.9 s 12.0-14.7 N [facility] CampusXecfcinTKJMKCCMLQ8396-80-65 21:20:00 Test Item Value Reference Range Interpretation Comments INR (test code = INR) 1.07 1 0.85-1.17 N [facility] HexopscMSQILOZSSH7913-07-87 21:20:003.4[facility]annHEMATOLOGY 2011-02-19 21:20:00 Test Item Value Reference Range Interpretation Comments MCH (test code = MCH) 32.2 pg 27.0-31.0 H [facility] RildpaqTJAAEDVTPV2558-39-40 21:20:0095.7[facility] HermannHEMATOLOGY 2011-02-19 21:20:0033.6[facility] BevsbquCZCSZEJROQ0241-16-24 21:20:0016.7[facility] ElgmhoaONIFKFKFWB3400-67-51 21:20:007.8[facility] EvnzudlFIJRZNACAY5392-88-38 21:20:99098.0[facility] EuevjyoONYHCFRSRV7070-38-79 21:20:007.4[facility] OTXLLTGPAP1150-65-71 21:20:008.7[facility] WmalnpiPEYUPLUGRY0051-94-08 21:20:00 15.6[facility] BcgxmqvPZOVDKCRZU0233-77-15 21:20:001.1[facility]annHEMATOLOGY 2011-02-19 21:20:000.6[facility] BiihojyVIFZIWASSG8503-87-06 21:20:005.3[facility] QiyeixcKRHZWJICIX5024-71-38 21:20:005.1[facility] GdxsdikRMZXGQZZHG6545-15-07 21:20:000.6[facility] UfcccmfKWKFITLMCU1145-00-68 21:20:0069.8[facility] HNKUYVFDKL6727-75-36 21:20:000.4[facility] LzxyotuNODVDIXKHG8816-96-69 21:20:000.0 [facility] KxltablTZSYQPBPA8834-00-23 21:00:001.1[facility]annCHEMISTRY 2011-02-19 17:32:01329.0[facility] LjffqkdRQOVNHBJQ4689-87-50 17:32:000.6[facility] PlllperETTLSYFNC7081-79-10 17:32:001.08[facility] PkixlycCPYPFJJKM2709-39-41 17:32:73184.0[facility] BdzpvhgVONJSPZUH2004-27-85 17:32:0029.0[facility] XTBVDCHEZ4393-34-42 17:32:003.3[facility] YrfupbtEIEUHPRUW7891-44-62 17:32:32663.0 [facility] MdvhbhtJAZLLPHNY8133-99-85 17:32:0022.0[facility]annCHEMISTRY 2011-02-19 17:32:00-4.0[facility] NslebrdQCICOYMGN4865-03-18 17:32:00 Test Item Value Reference Range Interpretation Comments POC A pH (test code = POC A pH) 7.33 1 7.35-7.45 L [facility] OghlnsqMYYAVPYKU9980-25-70 17:32:0041.0[facility]annCHEMISTRY 2011-02-19 17:32:0037.0[facility] GorididALMUKJZTL6542-18-06 17:32:87502.0[facility] HermannBODY NTGYKA8753-96-91 16:00:0039.0[facility]annBODY BTZSSC2139-38-23 16:00:0070.0[facility]annBODY MECOKT9587-73-57 16:00:001.0[facility] BODY KIUXDJ7337-94-27 16:00:00Light Red *ABN*(02/19/2011 11:00:00) ??[facility]annB[facility] POZTUY7350-92-72 16:00:00Slight *ABN*(02/19/2011 11:00:00) ?? [facility]annBODY WQHUQX8653-95-34 16:00:00Colorless (02/19/2011 11:00:00) ?? [facility]annB[facility] HITWMV4188-23-60 16:00:798381.0[facility]annBODY FLUIDS 2011-02-19 16:00:00xxxxxxx (02/19/2011 11:00:00) ??[facility]annCHEMISTRY 2011-02-19 15:35:13903.0[facility] YpygkcfKJOHYZBRS0753-21-75 15:35:003.2[facility] TnascgfUASCSSFWE9383-02-08 15:35:001.1[facility] RpxajixLRPVSCDZY4917-79-67 15:35:000.7[facility] ZjdnmbkLYWNOEZUG0848-67-89 15:35:00 Test Item Value Reference Range Interpretation Comments POC A pH (test code = POC A pH) 7.35 1 7.35-7.45 L [facility] OtkssjxXQSWEVQKD1455-49-27 15:35:0037.0[facility]annCHEMISTRY 2011-02-19 15:35:00-3.0[facility] LxaeicxIFFIJOLGV9853-98-95 15:35:0041.0[facility] AzgkmbdZNQHXIZGZ2068-58-28 15:35:05819.0[facility] BnckudeQAGAZVTQV1922-36-28 15:35:0023.0[facility] LknkznyKTXEVLRLA5182-16-43 15:35:65101.0[facility] AGTLUPMRR5265-84-43 15:35:03145.0[facility] HijahuwGPPDYTPLG0531-18-47 15:35:00 29.0[facility]BL[facility] B[facility] TNJURET2327-71-98 15:33:00Negative (02/19/2011 10:33:00) ??[facility] KgetwyrKUTZOHRFL6321-67-26 14:06:003.7[facility] AHUXHUSUB2086-48-02 14:06:001.1[facility] KfglmbuDJUFPTVIM9401-61-59 14:06:07868.0 [facility] FgnigeqRWMHJIVPB0901-94-30 14:06:001.0[facility] HermannCHEMISTRY 2011-02-19 14:06:94983.0[facility] ErhydmkKAZTRPQIO0172-61-76 14:06:00 Test Item Value Reference Range Interpretation Comments POC A pH (test code = POC A pH) 7.43 1 7.35-7.45 N [facility] DjyyupiLVJOBQECN3768-42-00 14:06:99107.0[facility] HermannCHEMISTRY 2011-02-19 14:06:00-1.0[facility] PlwxmdtMPNMUQYGC2220-27-76 14:06:0023.0[facility] PhacbtiDTHKQHEME2727-56-30 14:06:41846.0[facility] LjvffaqSBYQLSTMA9330-45-41 14:06:0034.0[facility] RexbufgKRGAAHEEA2079-93-24 14:06:0037.0[facility] MCZOWYDPV4121-34-22 14:06:0034.0[facility] RtcjdsfHHGSKOHIZ8471-09-90 11:00:0012.0 [facility] EwaydcrFKVWWHWVZ0053-59-11 11:00:67139.0[facility] HermannCHEMISTRY 2011-02-19 11:00:0012.0[facility] XhwdoftXNGZXPNVE3546-89-22 11:00:000.6[facility] ObqtsfsMZWPKXWDR7684-82-11 11:00:0024.0[facility] ByxuqagYBQBQVWXI8149-15-09 11:00:007.9[facility] VkjyorkALSQHFNCZ5666-16-22 11:00:004.0[facility] AVCXZQRIL5468-50-44 11:00:54271.0[facility] XabsddxOPFLUHEQX7577-32-46 11:00:00 99.0[facility] WpvamydEGFJYKPVRC5229-52-35 11:00:002.4[facility]annHEMATOLOGY 2011-02-19 11:00:000.7[facility] MmzqqypBTKTJFBGEY7038-40-71 11:00:000.0[facility] VsrhbmxBMKUXHGXWF9295-88-47 11:00:000.6[facility] AqohjhnXHFVSICGQD1329-36-18 11:00:002.4[facility] UzrsvqyXXHMCVQNRH0002-62-70 11:00:0010.9[facility] LLMKNGHVUB2553-79-53 11:00:000.8[facility] FlpriykXYUFNETIAD8010-15-29 11:00:009.4 [facility] BwcihfzTTEUYSDYJV3002-41-52 11:00:0039.3[facility]annHEMATOLOGY 2011-02-19 11:00:0039.6[facility] FgjwtbhNYKRFGEWIJ2036-77-71 11:00:008.2[facility] QunsmutBUXNQVFSHN6482-56-71 11:00:04362.0[facility] UiydbbxRTUTAPHWJM3781-93-25 11:00:00 Test Item Value Reference Range Interpretation Comments M[facility] (test code = MCH) 32.9 pg 27.0-31.0 H [facility] SvrdqlzTKUOWGXVAZ8115-17-71 11:00:0094.8[facility]annHEMATOLOGY 2011-02-19 11:00:0034.7[facility] DbketluRMGDGTKTSI6295-34-80 11:00:0016.4[facility] XnmyiehTMWQLPWFNS1983-85-52 11:00:0010.7[facility] JnywhefZIRLLDEOGZ1301-88-39 11:00:003.26[facility] RdtpoqnQDGKYTPLAK9662-22-50 11:00:0030.9[facility] OOTYLCGDKX7222-64-83 11:00:006.2[facility] LpfjlwnDLDFUTFVRH7372-75-24 11:00:00 Test Item Value Reference Range Interpretation Comments INR (test code = INR) 1.0 1 0.85-1.17 N [facility] CampusLbcglhqXGAUBVMMHO6916-59-71 11:00:00 Test Item Value Reference Range Interpretation Comments PT (test code = PT) 13.2 s 12.0-14.7 N [facility] CampusDuilxqbDNRPMYSXWB6535-91-22 11:00:00 Test Item Value Reference Range Interpretation Comments PTT (test code = PTT) 30.3 s 22.9-35.8 N [facility] AmericaB[facility] GLUCOSE MOYCFAX7152-03-12 10:22:45871.0[facility] BEDSIDE GLUCOSE QRPOXFK9183-41-82 02:28:21467.0[facility] AMKEFIY0112-65-81 00:46:35551.0[facility] WgjsqkiDYFEAVIZOU6177-66-71 08:39:0094.3 [facility] AgnffkyUNMBJPNSDA6902-10-46 08:39:0033.1[facility]annHEMATOLOGY 2011-02-18 08:39:0016.6[facility] ZcdyeoiPCUNOANMJV3428-19-01 08:39:00 Test Item Value Reference Range Interpretation Comments MCH (test code = MCH) 32.8 pg 27.0-31.0 H [facility] UonpgdwVFOUTFMHBE0761-39-25 08:39:0034.7[facility]annHEMATOLOGY 2011-02-18 08:39:007.9[facility] WexbbnjRSNRCZXYEE9984-80-78 08:39:04255.0[facility] OpnvruoDDAIFQZRQR0723-41-97 08:39:006.4[facility] CkxvcjfOQSENZXTFC0744-93-47 08:39:003.51[facility] CmmywjtSXNNXQIBIX8124-88-69 08:39:0011.5[facility] SVKHYHARFI6190-27-36 07:48:008.1[facility] QjvstkrSCQEHEWPUI3654-97-03 07:48:00 Test Item Value Reference Range Interpretation Comments M[facility] (test code = MCH) 32.7 pg 27.0-31.0 H [facility] GsbvmatHBKQPMYUGZ4336-32-39 07:48:0095.1[facility]annHEMATOLOGY 2011-02-15 07:48:0034.3[facility] GtthwmkXZFSQOEJIJ0348-70-58 07:48:81726.0 [facility] FwbyoueKVKMKKJHVG9843-90-32 07:48:0016.5[facility]annHEMATOLOGY 2011-02-15 07:48:0012.9[facility] KiiaxqwILOLZBVUQE4625-13-18 07:48:0034.1[facility] WappbraRHXZPJMSNU1554-37-85 07:48:0011.7[facility] ClllbwgLKCPIHVTUQ2931-74-60 07:48:003.58[facility] JicmmfqRPBOGAXRHQ4210-12-11 07:48:000.1[facility] BDWCJDSIRT6739-33-13 07:48:000.4[facility] OdtankkIRSQLVHOMI9178-99-66 07:48:000.6 [facility] IbvgqpaUGOARBPQAP4548-65-05 07:48:004.8[facility] HermannHEMATOLOGY 2011-02-15 07:48:0026.8[facility] DcyhgubLUQOQEHZSX7699-88-08 07:48:003.5[facility] RtbevamJVEQTCTLPG7893-23-63 07:48:008.3[facility] AfhtycnOGEPUMDZGW9121-45-52 07:48:000.8[facility] YoemsctTDLJGOIANZ5142-53-69 07:48:003.0[facility] GMJDXCVHKL5362-37-57 07:48:0064.6[facility] HewmoknRMBINMUIH0752-89-21 09:47:003.1 [facility] XeuyfxnNBQDNZYQL1987-24-19 09:47:002.7[facility]annCHEMISTRY 2011-02-13 09:47:005.8[facility] MgraghfQKIOEHHSI3597-73-35 09:47:00 Test Item Value Reference Range Interpretation Comments B/C Ratio (test code = B/C Ratio) 43.0 1 6-25 H [facility] ZlmcdljPPZVILJYA8418-57-54 09:47:00 Test Item Value Reference Range Interpretation Comments A/G Ratio (test code = A/G Ratio) 0.9 1 0.7-1.6 N [facility] WfwdfzxADWHXUUKC6571-57-69 09:47:0052.0[facility]annCHEMISTRY 2011-02-13 09:47:75926.0[facility] VybvaeqOIACHSZFC3703-08-18 09:47:00>60.0 [facility] SshqetzNJRXHNFFL0596-08-74 09:47:0016.9[facility]annCHEMISTRY 2011-02-13 09:47:008.5[facility] TomghpfBPEWEVLRW8755-25-49 09:47:000.6[facility] AnnoelhROWLJPWPY7462-02-69 09:47:0049.0[facility] OtanwafUVNISJFXF7066-41-10 09:47:0097.0[facility] FmovpytKQOJCVNQK2714-23-93 09:47:004.9[facility] KFFHFKZXM8340-18-48 09:47:000.4[facility] FisrkqwDMZPFVVUO8979-93-02 09:47:84144.0 [facility] QjmspskNZYLFGXEJ4764-67-36 09:47:01188.0[facility]annCHEMISTRY 2011-02-13 09:47:0017.0[facility] KbkosdnBOENGVMNV4718-35-77 09:47:0025.0[facility] EnvepqpCTMZMWBLI9569-88-58 10:09:0018.6[facility] AflscmuJKVXLVAYW8819-23-38 10:09:008.3[facility] HvvfbweYJBXQVKOH9394-01-59 10:09:0063.0[facility] IKXCXQUKQ1650-29-70 10:09:0019.0[facility] SwduizvJCAOEPOXM1009-06-07 10:09:000.7 [facility] JobgyytSRZCWMSBX4139-57-49 10:09:28509.0[facility]annCHEMISTRY 2011-02-12 10:09:0097.0[facility] MjmeqlpPLEMLXFID7388-67-94 10:09:003.6[facility] KsdnyhjLBCFENPIX5454-35-41 10:09:0023.0[facility] UihmdnjUBRFPJIECY1109-54-67 10:09:001.0[facility] BezbmwkMOFUXJJVLO3677-52-24 10:09:000.1[facility] ZYEMNSDZUO6356-23-14 10:09:000.2[facility] WxxbvwdTXPPTCUJCC7758-26-73 10:09:004.9 [facility] NnggotnNJNTSGACEK4682-11-95 10:09:000.7[facility]annHEMATOLOGY 2011-02-12 10:09:0012.2[facility] GqcvqsrMDDVKKKRCX7664-39-56 10:09:005.5[facility] YaxrmlzPQKWXEUGAA9069-78-88 10:09:001.1[facility] BpdizxaDOFROOLBCP0712-02-71 10:09:0066.2[facility] YeabqoxGVKVYTUMTV5969-31-44 10:09:0026.5[facility] MWPVUIYVY0544-83-72 19:00:001.8[facility] KhkrhlnLRSSFIHZP0625-80-30 19:00:0057.0 [facility] MxfkjtwZGPKLPBJY3430-32-26 19:00:006.8[facility]annCHEMISTRY 2011-02-11 19:00:003.2[facility] DmmepgiTBZEUWCXD4359-34-96 19:00:003.6[facility] MzaxaeiMBKWFEIPW0080-24-94 19:00:00 Test Item Value Reference Range Interpretation Comments A/G Ratio (test code = A/G Ratio) 0.9 1 0.7-1.6 N [facility] FkcyilhQNSTCDKBL5650-65-77 19:00:0059.0[facility]annCHEMISTRY 2011-02-11 19:00:37219.0[facility] NiafynvDDDJNZRSH1217-26-12 19:00:000.7[facility] AuxgcefCJQAMSGPE0400-46-77 19:00:00 Test Item Value Reference Range Interpretation Comments B/C Ratio (test code = B/C Ratio) 45.0 1 6-25 H [facility] ZazgayjPYEUQUVEBA2525-07-43 19:00:001+ *ABN*(02/11/2011 14:00:00) ?? [facility] HermannSTOOL SDRYB1649-44-63 05:59:00None Seen 4(02/11/2011 00:59:00) ??[facility] RionvbdQRWLPJJNU1511-63-26 19:39:00 Test Item Value Reference Range Interpretation Comments eGFR (test code = eGFR) 48.0 1 [facility] CfdohpsMTEVBHNMP8514-86-85 19:39:003.0[facility] HermannCHEMISTRY 2011-02-10 19:39:00 Test Item Value Reference Range Interpretation Comments A/G Ratio (test code = A/G Ratio) 1.0 1 0.7-1.6 N [facility] AfwkjsfDWMDXGETF3870-37-55 19:39:00 Test Item Value Reference Range Interpretation Comments B/C Ratio (test code = B/C Ratio) 23.0 1 6-25 N [facility] ZpuqlfwTLBQPXKDP0950-40-99 19:39:0031.0[facility] HermannCHEMISTRY 2011-02-10 19:39:003.1[facility] NdhfnnzHCNPFSSRB4197-92-45 19:39:0064.0[facility] GsvcnrwRIGXHXRBK5833-50-52 19:39:006.1[facility] TqhkmehUJLMQMQBM6708-63-91 19:39:000.5[facility] JghcfshGOTNYKRQN0187-68-26 19:39:00591.0[facility] UQZKZNMRGS6918-03-84 10:19:00Slight (02/08/2011 05:19:00) ??[facility] XDSISYACMH9569-69-92 10:19:00Slight (02/08/2011 05:19:00) ??[facility] CXSNQHZUOA6650-65-28 10:19:001+ *ABN*(02/08/2011 05:19:00) ??[facility] NYWEUNEJMC2369-01-99 10:19:00Normal (02/08/2011 05:19:00) ??[facility] KWTHCNXQYM3441-71-91 08:33:000.0[facility]BL[facility] DPTUTSS5783-56-22 19:12:00Negative (02/05/2011 14:12:00) ??[facility] VenlkjuHTFLPLFSO5430-84-28 02:09:0064.0[facility] PqsjbweXUMUGFRJG7638-97-37 02:09:000.03[facility] SQACPVVMP1449-80-25 18:20:0071.0[facility] UsmrnycCLKEBFKNO5322-08-63 18:20:000.05 [facility] UybtiwdGOVBAVPBMR7692-32-09 22:21:00??[facility] HermannURINALYSIS 2011-02-02 22:21:00Negative (02/02/2011 17:21:00) ??[facility] HermannURINALYSIS 2011-02-02 22:21:00<1.0[facility] VifafpoJMHLVTANDJ7748-97-12 22:21:00 Occasional /HPF *NA*(02/02/2011 17:21:00) ??[facility] FiufreoPMONRBCZKK6866-39-86 22:21:00Negative (02/02/2011 17:21:00) [facility] CampusIyufptqYKAWSQBWXP0488-54-88 22:21:00Negative mg/dL *NA*(02/02/2011 17:21:00) ??[facility] HermannURINALYSIS 2011-02-02 22:21:00Negative *NA*(02/02/2011 17:21:00) ??[facility] EEQOVMWJIT6910-26-43 22:21:00Negative (02/02/2011 17:21:00) ??[facility] RWUZFYMAXY2373-54-24 22:21:00Negative mg/dL (02/02/2011 17:21:00) ??[facility] GbtkmaaMBOKCYJFPR1969-74-48 22:21:00Negative mg/dL *NA*(02/02/2011 17:21:00) ?? [facility] RdhghhnIRTGDPQNTS4657-14-74 22:21:00Light Yellow *NA*(02/02/2011 17:21:00) ??[facility] ZjrobcsHUDKPPCGQQ7131-59-77 22:21:00Clear (02/02/2011 17:21:00) ??[facility] HgrsjmhPJGQGCKVAH7278-66-96 22:21:00 Test Item Value Reference Range Interpretation Comments UA Spec Grav (test code = UA Spec 1.004 1 N Grav) [facility] GuaqqsoKTLKRJVNVC5259-58-61 22:21:00 Test Item Value Reference Range Interpretation Comments UA pH (test code = UA pH) 7.0 1 5.0-8.0 N [facility] KmdpimwEVPUAKRRA5659-83-33 10:30:000.98[facility] HermannCHEMISTRY 2011-02-01 10:30:000.711[facility] PakcvfoFXRFQXGMSH0906-26-32 10:30:0019.4 [facility] HermannBEDSIDE GLUCOSE ZRMSYUN1880-79-05 10:46:64542.0[facility] JNDJAEAOO4892-37-75 08:36:002.9[facility] OsbvbmjNDQKCFEKS1621-40-57 08:36:0024.0 [facility] GdqjgamGRQXZCODM8129-26-53 08:36:007.7[facility] HermannCHEMISTRY 2011-01-31 08:36:85656.0[facility] IyoadyuARGKHKJIQ7298-19-73 08:36:98859.0 [facility] AumgpmpWPNKECVXB4896-73-94 08:36:003.9[facility] HermannCHEMISTRY 2011-01-31 08:36:0017.0[facility] ZlwyjzxKOXOOTJKT1677-47-98 08:36:000.7[facility] DmzpzudPSATWIWLY0715-35-71 08:36:04408.0[facility] GxvnxjtNMYCFPQTM4454-87-76 08:36:0017.9[facility] OqbwnyiGTTPYBPTX1863-75-04 08:36:001.9[facility] TBADJFDMS0497-01-58 08:36:001.13[facility] MrucbpsBCTYOVPRD0476-62-62 08:36:001.09 [facility] YgdvhwkPYSXVRDIN1061-54-29 08:36:004.52[facility]annCHEMISTRY 2011-01-31 08:36:004.36[facility] IqthxxzZMGCPBRJPC4386-88-20 08:36:00Slight *ABN*(01/31/2011 03:36:00) ??[facility] DburgzgKHLPXPZGAW0501-49-48 08:36:001.4 [facility] OrmykmmGDWFQRAIMI2418-72-17 08:36:003.0[facility]annHEMATOLOGY 2011-01-31 08:36:0018.6[facility] FbsdjcjLQDJPQXUNG0284-59-26 08:36:001.6[facility] AqmcaoqQSWYWXEXCG9427-95-32 08:36:002.0[facility] WmaxlyzNWPQERPSTJ5818-18-04 08:36:007.0[facility] EfihmhxCTHPSJFLKT6709-10-81 08:36:006.0[facility] EHAUFGZBBP4929-82-85 08:36:0079.0[facility] HcrolmbJZSHDFFWMO7565-65-54 08:36:00 2.0[facility] TiyeadiHYERYBXZIA7180-02-17 08:36:00Slight (01/31/2011 03:36:00) ?? [facility] LuzqzvnIETEHCWEXX9897-36-54 08:36:00Slight (01/31/2011 03:36:00) ?? [facility] FaccpdfBCCYSTYAXY4825-21-65 08:36:00Present *ABN*(01/31/2011 03:36:00) ??[facility] GsifbtzZAYXDLIRJC2546-47-75 08:36:000.0[facility]annHEMATOLOGY 2011-01-31 08:36:001.0[facility] HloausqIEBUCCOYTU0444-81-45 08:36:0015.3[facility] QxrzgpkZCSQSYWKCG0173-50-23 08:36:0010.1[facility] BaiwxknVOAOPEOOVP9360-27-71 08:36:50249.0[facility] WwbgwrbDJMVKXUUTL1764-66-59 08:36:0037.3[facility] NBBGIFJNUO2867-72-35 08:36:0032.7[facility] XcrmeguMLEDMIIPJI5309-49-43 08:36:00 94.8[facility] RtskpeoJPALKAUWJG5354-38-80 08:36:00 Test Item Value Reference Range Interpretation Comments MCH (test code = MCH) 31.0 pg 27.0-31.0 N [facility] PlaurrhTBGASUUHKZ5751-98-59 08:36:0023.0[facility]annHEMATOLOGY 2011-01-31 08:36:003.93[facility] RhioezkBKDRHLSJED9047-10-17 08:36:0012.2[facility] HermannBEDSIDE GLUCOSE MUBNTRY9974-26-54 05:49:43609.0[facility] HermannBEDSIDE GLUCOSE BEKQUMQ6709-25-26 01:36:83124.0[facility] EqdalpdMWFCYBNSI2998-45-43 15:02:002.7[facility] ZlyprapCLWFPLPPG3614-60-17 15:02:003.7[facility] WHRDFXHIP9471-50-42 15:02:004.2[facility] FhrtcpvRRNOQRKYO5341-91-42 15:02:004.24 [facility] XmbenxuLZWKKENSK0471-73-89 15:02:001.05[facility]annCHEMISTRY 2011-01-29 15:02:001.06[facility] CjoliuzKRRUBKZNF9552-10-18 15:02:002.4[facility] EruwovjHXEPUKTCV0706-75-79 15:02:0015.0[facility] SeghqihZEZQVJIPN8629-64-26 15:02:0023.0[facility] DmiunexIBHAVZJID4257-27-77 15:02:000.8[facility] HDLOHSQYY7510-21-88 15:02:72740.0[facility] QiwscadHWOXTITSC3527-65-47 15:02:004.0 [facility] ObnfnwnJGBDKOCUT0845-52-64 15:02:53365.0[facility] HermannCHEMISTRY 2011-01-29 15:02:56213.0[facility] ZhkvrbsTNICWRMAQ7050-69-31 15:02:0024.0[facility] ZierpzfJHRAKYJKW1608-59-23 15:02:007.8[facility] JajimjmGCPPXZXUXM8274-24-09 15:02:00Slight *ABN*(01/29/2011 10:02:00) ??[facility] XhykpcwVPWRRQOKIY8002-29-45 15:02:00Slight (01/29/2011 10:02:00) ??[facility] RvgknfxVEBWAYECBE9899-55-01 15:02:000.0[facility] GbotakbZUTGSYWAZA6334-28-34 15:02:001.0[facility] OQEMTJLIJR1973-74-18 15:02:0081.0[facility] LbyzojoSNDMTOXYQY4400-64-97 15:02:00 9.0[facility] HtnjeswJJTWWESKAQ5145-98-07 15:02:005.0[facility] HermannHEMATOLOGY 2011-01-29 15:02:001.0[facility] OnivapjGCDFAKAIKT7110-99-80 15:02:002.0[facility] AezmtyzJEFVNMUWFN1039-72-98 15:02:002.0[facility] ItsmuwiZFYGVGSWTK1536-35-56 15:02:001.0[facility] CpijfblMTSTIGKAVE5945-12-62 15:02:001.8[facility] USSFJUVHGC5131-52-73 15:02:0016.3[facility] HrjvvzzIXFSLEWXDA4648-40-59 15:02:00 9.4[facility] RkqhjlhFFZMEXOPCY3657-19-87 15:02:0033.9[facility]annHEMATOLOGY 2011-01-29 15:02:0094.0[facility] MlreqmzSWRUBXTUUQ8035-79-44 15:02:00 Test Item Value Reference Range Interpretation Comments MCH (test code = MCH) 31.5 pg 27.0-31.0 H [facility] GvllhzhSKKCUUSQIB7603-01-54 15:02:0033.6[facility]annHEMATOLOGY 2011-01-29 15:02:0016.1[facility] AbhcwxzBZWZAKPQJC4276-12-68 15:02:47634.0 [facility] AocykdpLOVFGMYPPG1523-64-68 15:02:0019.6[facility]annHEMATOLOGY 2011-01-29 15:02:0011.4[facility] IzrpctkPJVEZOLYZZ3033-88-81 15:02:003.61[facility] PszwgrtQDERKIJZR5701-84-26 06:30:0014.2[facility] RyegjzqIYJKJAKIC9218-85-19 06:30:81106.0[facility] LmcxhfcNXCXKLHOZ4894-42-75 06:30:52584.0[facility] OSUOBAUQA7235-03-77 06:30:003.2[facility] DpncjlrMGIBCKEDY7940-27-28 06:30:0025.0 [facility] JqlzxppICTHTUOZM0166-13-08 06:30:007.5[facility]annCHEMISTRY 2011-01-28 06:30:0057.0[facility] LxeqplqTPQPODDWX1004-82-40 06:30:0021.0[facility] HmyotnsYBUPGHZGU4339-46-46 06:30:000.7[facility] CzuzhabAVSXWHNJQ0260-27-02 06:30:003.2[facility] UzsagqpFSGWPWAET0345-17-03 06:30:002.2[facility] VDBUOVTJP5846-82-45 06:30:001.09[facility] LtswurjTDJGKAKXQ4622-30-54 06:30:001.06 [facility] RcnjozbRMSZAXDER9887-33-33 06:30:004.36[facility]annCHEMISTRY 2011-01-28 06:30:004.24[facility] UftprqrROQBIOECGT2125-51-15 06:30:62513.0 [facility] HoatjvuQHRULMJVPA1500-40-56 06:30:0010.4[facility]annHEMATOLOGY 2011-01-28 06:30:00 Test Item Value Reference Range Interpretation Comments MCH (test code = MCH) 31.1 pg 27.0-31.0 H [facility] LvuyrruCLVMOQMZVC2226-04-44 06:30:0033.3[facility]annHEMATOLOGY 2011-01-28 06:30:0016.0[facility] UqthyffDQJUTAYFZY2440-49-29 06:30:0032.3[facility] NmcnjgiDGOPQRUQDC5342-57-30 06:30:0093.5[facility] WlgtbfrVZUYONUFLI5584-16-66 06:30:003.45[facility] UlosodePYPHYEAJEQ1282-94-96 06:30:0010.7[facility] HQRWJIAKCG3692-74-92 06:30:0020.1[facility] QpzkwypLAWPHHSNUB9129-70-81 06:30:00 0.0[facility] UfzksroYSZPHGHYZM1275-34-93 06:30:004.1[facility]annHEMATOLOGY 2011-01-28 06:30:0018.0[facility] FjeiqgrENRXETXYHQ7337-06-78 06:30:000.0[facility] XjglnkcLGARQHEZBP0346-55-83 06:30:006.6[facility] QxegqyqYMFRSHKWXF1057-53-97 06:30:000.0[facility] BjaxxgsQOIRKKJKKT7772-63-70 06:30:000.0[facility] RINDKLTGVC0166-76-55 06:30:000.8[facility] BxgxjtrZBBFEILSMI5682-08-31 06:30:001.3 [facility] ZjmvncmZCCBWFLWZF2203-40-42 06:30:0089.3[facility]annCHEMISTRY 2011-01-27 09:07:06998.0[facility] BmavopdTCTLSZKFF7054-60-96 09:07:00 Test Item Value Reference Range Interpretation Comments POC A pH (test code = POC A pH) 7.56 1 7.35-7.45 H [facility] YsivgxnBOSTZZFSN2984-52-01 09:07:76176.0[facility]annCHEMISTRY 2011-01-27 09:07:0037.0[facility] WqnfblvFKZZOXSMV2139-45-46 09:07:004.0[facility] TcjgijcQPQBKKYTB4820-43-53 09:07:87324.0[facility] PixjeefWMXONJGKY9399-82-94 09:07:0025.0[facility] ExcpirsKGUNZERJI7362-67-51 09:07:0028.0[facility] WFMPOBJYK6351-71-10 05:14:19885.0[facility] ZpudzabXNPKMNVJGM7764-81-84 05:14:00 Test Item Value Reference Range Interpretation Comments PTT (test code = PTT) 25.2 s 22.9-35.8 N [facility] JzxjdwdUWRSDMAUUN6777-93-77 05:14:00 Test Item Value Reference Range Interpretation Comments PT (test code = PT) 15.8 s 12.0-14.7 [facility] HbioxirQHXUFGPRFG0036-50-97 05:14:00 Test Item Value Reference Range Interpretation Comments INR (test code = INR) 1.26 1 0.85-1.17 H [facility] PqzecqlZFISFJUQXR8813-62-52 05:14:000.0[facility] 2011-01-27 05:14:000.2[facility] AwpdgnoQRBDTHWXCO7849-71-29 05:14:000.0[facility] MscjdnqHYFUVSMLFV2930-77-81 05:14:000.0[facility] YuhynzmRGSERDVWU2356-04-38 20:09:86882.0[facility] JjyxfkqYQHUDKFCNN5987-88-51 20:09:000.0[facility] Novice XYSWGNXIUG2427-33-83 20:09:000.0[facility] DjoxptkVONECYSIOX5681-30-50 20:09:000.0 [facility] GtczhhfDBMORYJPZH0271-38-37 20:09:000.1[facility]annHEMATOLOGY 2011-01-26 20:09:00 Test Item Value Reference Range Interpretation Comments PTT (test code = PTT) 29.8 s 22.9-35.8 N [facility] NfkatyqNRMITIGHJJ4422-32-14 20:09:00 Test Item Value Reference Range Interpretation Comments PT (test code = PT) 15.4 s 12.0-14.7 H [facility] HoirftwUETBRVZHIW0896-31-81 20:09:00 Test Item Value Reference Range Interpretation Comments INR (test code = INR) 1.22 1 0.85-1.17 H [facility] AmwoerwJRRXMXWAO2898-77-48 18:43:66827.0[facility]annCHEMISTRY 2011-01-26 18:43:000.8[facility] CsmdmtmYVULYJTNK0451-23-41 18:43:001.17[facility] IyneljiWVGIJOMNO5433-04-28 18:43:003.6[facility] DrrvidcUKQGJHLDW0899-82-47 18:43:85162.0[facility] HuxrhhjJWPROYPFD6981-77-41 18:43:0080.0[facility] NZHSIPDAH7797-92-71 18:43:0040.0[facility] QizarfxHBFYEPYEI4121-49-05 18:43:0037.0 [facility] TegwnyhYJBFLYXQB0123-33-76 18:43:00 Test Item Value Reference Range Interpretation Comments POC A pH (test code = POC A pH) 7.4 1 7.35-7.45 N [facility] MyzbwcdUMSQMPINF8451-60-67 18:43:0034.0[facility]annCHEMISTRY 2011-01-26 18:43:000.0[facility] VrursvmJDWORVBJW8121-29-86 18:43:0096.0[facility] VoddkdcAXEGXBRJH3322-31-39 18:43:0025.0[facility] PtxxfbjKJTDORFLO3219-48-50 17:57:0096.0[facility] XwhvfpmRIYUMNAYO1902-25-70 17:57:003.6[facility] EWOWMEEDL3584-41-05 17:57:000.8[facility] TbcepgfFNOROVHMD0772-66-44 17:57:79770.0 [facility] QlrmscdWYVDAVFDP3417-51-80 17:57:0037.0[facility]annCHEMISTRY 2011-01-26 17:57:0025.0[facility] RbicpvyTTUSNFPUI9259-23-88 17:57:0079.0[facility] ZtwqwsoXQLWKCHIX3119-71-75 17:57:0038.0[facility] OyntdifMZWQGUCWM9497-57-07 17:57:00 Test Item Value Reference Range Interpretation Comments POC A pH (test code = POC A pH) 7.42 1 7.35-7.45 N [facility] TcssawtKFUNYGMBF4172-65-57 17:57:000.0[facility]annCHEMISTRY 2011-01-26 17:57:001.22[facility] ZnsdhsmDEXOFYHDM5722-51-72 17:57:16657.0[facility] HlieafbEVZCKXLCZ6334-83-27 17:57:0036.0[facility] RitzsfoXQOKEFMLC2809-92-13 17:01:0041.0[facility] ToohrjeZAMSQHQFU9534-67-56 17:01:08193.0[facility] AXDFPPCXP4006-67-46 17:01:001.05[facility] EtmzrotPNJJLQREH5031-51-72 17:01:003.6 [facility] McssxzpGNSQOWUTR9272-05-35 17:01:000.8[facility]annCHEMISTRY 2011-01-26 17:01:69793.0[facility]BL[facility] RLEMIXQ3738-00-22 14:00:00 Negative (01/26/2011 09:00:00) [facility]GptuturWMHZTBMGUR3017-25-09 05:15:00 Test Item Value Reference Range Interpretation Comments PTT (test code = PTT) 28.2 s 22.9-35.8 N [facility] CampusTgjfawiIOMQUSSLVN2742-69-61 05:15:00 Test Item Value Reference Range Interpretation Comments INR (test code = INR) 1.24 1 0.85-1.17 H [facility] CampusYrhdzelJDIGALOGDD7595-77-40 05:15:00 Test Item Value Reference Range Interpretation Comments PT (test code = PT) 15.6 s 12.0-14.7 H [facility] CampusJvzusmtIZNTKMFDL8707-39-13 12:56:00 Test Item Value Reference Range Interpretation Comments CK MB Index (test code = CK MB Index) 0.4 1 <=2.5 N [facility] PjmkfeqNKBYJQDHZ2440-45-88 12:56:001.1[facility]annCHEMISTRY 2011-01-25 12:56:83843.0[facility] GmlcwoeAQPZZUEBX2757-49-14 12:56:00<0.01 [facility] MgebdcySVJFZJPLD8599-63-95 12:56:17301.0[facility]annCHEMISTRY 2011-01-25 05:15:51113.0[facility] EsxjowbBWJBFOPAC7540-28-65 05:15:00<0.01 [facility] WihtxnpPROVFLUUY0131-55-03 05:15:00 Test Item Value Reference Range Interpretation Comments CK MB Index (test code = CK MB Index) 0.7 1 <=2.5 N [facility] XoighbyUFOUDQTBN4957-17-01 05:15:001.5[facility]annCHEMISTRY 2011-01-25 00:16:002.4[facility] HbovycqFAUFJPYATM3460-57-26 00:16:00Slight *ABN*(01/24/2011 19:16:00) ??[facility] CampusKrvexsfINHHAWQQKR5563-36-18 00:16:002.0 [facility] CampusOtjymmdEPCHRGGDTQ4828-14-14 00:16:00Normal (01/24/2011 19:16:00) ?? [facility] CampusCqacbtaTFQZUVHTC3541-08-88 20:01:00<0.01[facility]annCHEMISTRY 2011-01-24 20:01:0060.0[facility] FccsitzSAZHOPSMP4047-68-97 20:01:0034.0[facility] PomogatelBLOOD BANK IWEKZGF4489-45-41 08:15:00Negative (01/24/2011 03:15:00) ?? [facility] [employer] BANK DHNPXEC0670-88-50 08:15:00Product available (01/24/2011 03:15:00) ??[facility] [employer] BANK UAXXEJM5228-96-51 08:15:00 Product available (01/24/2011 03:15:00) ??[facility] CampusFzwvofxQQOMREULW6533-41-86 16:30:00 Test Item Value Reference Range Interpretation Comments CK MB Index (test code = CK MB Index) 1.2 1 <=2.5 N [facility] YfvzgyyFZMXGFQSY3990-94-59 16:30:001.2[facility]annCHEMISTRY 2011-01-23 16:30:008.7[facility] DwiwoydOPRIUZHGF5232-62-22 16:30:00<0.02 [facility] PfgdwlzBJUUMWLXNV2521-69-00 10:29:00??[facility] HermannURINALYSIS 2011-01-23 10:29:00Occasional /LPF *NA*(01/23/2011 05:29:00) ??[facility] Jorge Alberto OZUQYBAKOE2241-43-78 10:29:00<1.0[facility] DmrkhqsIWARAWBXFP7532-06-72 10:29:00Few /LPF *NA*(01/23/2011 05:29:00) ??[facility] HermannURINALYSIS 2011-01-23 10:29:00<1.0[facility] NfdkipcRNTXPFXRVB4157-46-76 10:29:00Negative mg/dL (01/23/2011 05:29:00) ??[facility] CampusNorsdwbGPVEOZNZPR9612-57-57 10:29:00 Negative (01/23/2011 05:29:00) ??[facility] CampusCcybkrmEOBMZFOZIH1413-73-40 10:29:00 Negative (01/23/2011 05:29:00) ??[facility] CampusAvzszcgMFTJCZWKUD6886-36-12 10:29:00 Negative *NA*(01/23/2011 05:29:00) ??[facility] CampusTmwcdcoSXMUJSXPEQ2605-29-70 10:29:01796 mg/dL *ABN*(01/23/2011 05:29:00) ??[facility] HermannURINALYSIS 2011-01-23 10:29:00Negative (01/23/2011 05:29:00) ??[facility] HermannURINALYSIS 2011-01-23 10:29:00 Test Item Value Reference Range Interpretation Comments UA pH (test code = UA pH) 5.0 1 5.0-8.0 N [facility] ShvunuyBTLGHWDWXB5414-88-90 10:29:00 Test Item Value Reference Range Interpretation Comments UA Spec Grav (test code = UA Spec 1.01 1 N Grav) [facility] CampusUczjzthQXAMQJQDJX3430-77-34 10:29:00Clear (01/23/2011 05:29:00) ?? [facility]OsaokjsEHMXRIFCXV0594-38-43 10:29:00Yellow *NA*(01/23/2011 05:29:00) ?? [facility] AmericaBACTERIAL - GYCEWAWA4936-05-74 10:00:00Negative 1(01/23/2011 05:00:00) ??[facility]
--- OUTSIDE RECORDS SUMMARY | 2020-05-23 08:59 | XMS REPORT | Summary of Care ---
:1945 Author Name NOELLE Still Address Unavailable Unavailable , Care Team Providers [...] Still, SHEKHAR Start : 12-Nov-2018 Active Pyridostigmine [facility] 60 MG Oral Tablet TAKE 1 TABLET [...] On: 26-Jun-2020 11: 00 Interventions Provided Medication ChangespredniSONE 20 MG Oral Tablet - Renew Instructions Name [...]
--- OUTSIDE RECORDS SUMMARY | 2020-05-23 08:59 | XMS REPORT | Summary of Care ---
[...] Still, SHEKHAR Start : 12-Nov-2018 Active Pyridostigmine [place] 60 MG Oral Tablet TAKE 1 TABLET BY MOUTH THREE TIMES A DAY Quantity: 270 Refills: 1 NOELLE Still, SHEKHAR Start : 23-Nov-2018 Active azaTHIOprine 50 MG Oral Tablet TAKE 1 TABLET TWICE DAILY Quantity: 180 Refills: 1 NOELLE Still, SHEKHAR Start : 27-Mar-2020 Active Allergies and Adverse [...]
--- OUTSIDE RECORDS SUMMARY | 2020-05-23 08:59 | XMS REPORT | Summary of Care ---
[...] Still, SHEKHAR Start : 12-Nov-2018 Active Pyridostigmine [place] 60 MG Oral Tablet TAKE 1 TABLET [...] Medication ChangesazaTHIOprine 50 MG Oral Tablet - Renew with Changes Instructions Name Dates Details Instructions not documented [...]
--- NOTE | 2020-05-23 09:27 | RAD REPORT ---
EXAM DESCRIPTION: RAD - Hand Right 3 View - 05/23/2020 8:32 am CLINICAL HISTORY: PAIN, fall with hand pain COMPARISON: Hand Right 2 View dated 02/02/2019 FINDINGS: Spiral fracture of the third metacarpal shaft is present without distraction or angulation deformity. No periosteal reaction or callus formation seen. No other fracture or acute bone finding identifiable. IP joint degenerative changes are present. Alesha ent has moderate severity trapezium-first metacarpal joint degenerative change. No dislocation. No ac francheska bone process. No foreign body or significant soft tissue abnormality. IMPRESSION: Right third metacarpal shaft fracture without significant distraction or angulation
[2020-05-23] MEDS ORDERED: BUPIVACAINE 0.5% PF 10 ML VIAL ONE (09:32)
[2020-05-23] MEDS ORDERED: LIDOCAINE 1% W/EPI 1:100,000 MDV 50 ML VIAL ONE (09:33)
--- NOTE | 2020-05-23 09:36 | RAD REPORT ---
EXAM DESCRIPTION: RAD - Knee Right 3 View - 05/23/2020 8:33 am CLINICAL HISTORY: PAIN COMPARISON: No comparisons FINDINGS: No fracture, dislocation or periosteal reaction.No joint effusion seen. No joint space gloria rowing. Spurring is seen at the quadriceps tendon insertion and the patella tendon origin from the rubia dy of the patella. No significant degenerative change seen in the joint. Bones are osteopenic. No air or foreign body in the soft tissues. IMPRESSION: Osteopenic and minimal degenerative change. No acute bone or joint finding seen. Clinical concerns for internal derangement or occult bony injury could be further assessed with MR im aging.
--- NOTE | 2020-05-23 09:38 | RAD REPORT ---
EXAM DESCRIPTION: RAD - Elbow Right 3 View - 05/23/2020 8:40 am CLINICAL HISTORY: PAINfall with right elbow pain COMPARISON: No comparisonsdelete select FINDINGS: No fracture is identified and no elevated posterior fat pad. There is no dislocation or pe riosteal reaction noted. No foreign body in the soft tissues. Bones do show osteopenic change. Calcif ic densities adjacent to the medial and lateral epicondyles are likely degenerative tendon calcificat ion unrelated to any current event. No other significant finding. IMPRESSION: Negative right elbow examination.
[2020-05-23 09:58] LABS: Absolute Lymphocytes (CBC) 4.9 K/uL (0.7-4.9); Basophils % 0.9 % (0-1.3); Hematocrit 32.8 % (36.0-45.0); Lymphocytes % 30.1 % (15.3-44.8); MPV 8.4 fL (7.6-11.3); RBC Red Blood Cell Count 4.46 M/uL (3.86-4.86)
[2020-05-23 10:18] LABS: Potassium 3.5 mmol/L (3.5-5.1)
[2020-05-23 10:35] LABS: Anisocytosis 1+; Blood Morphology Comment NOTED (NOT SEEN); Hypochromasia 1+; Platelet Estimate ADEQ
--- NOTE | 2020-05-23 11:47 | EDPHYS ---
Physician Documentation [facility] Name: Franci Lange Age: 75 yrs Sex: Female : 1945 Arrival Date: 05/23/2020 Time: 07:55 Bed 2 Private MD: ED Physician Eulogio Yoder HPI: 05/23 11:32 This 75 yrs old Female presents to ER via EMS with complaints of Fall Injury. kdr 11:32 Details of fall: The patient fell from an upright position, while standing. Onset: The kdr symptoms/episode began/occurred suddenly, just prior to arrival. Associated injuries: The patient sustained injury to the head, abrasion, contusion, deformity, hematoma, laceration, swelling, tenderness. Severity of symptoms: At their worst the symptoms were moderate, severe, just prior to arrival, in the emergency department the symptoms are unchanged. The patient has not experienced similar symptoms in the past. The patient has not recently seen a physician. 11:32 Was attempting ot stand from wheelchair when she lost her balance and fell to the kdr floor. She denies LOC. Historical: - Allergies: 08:05 Aspirin; ph 08:05 cefepime; ph 08:05 CEPHALOSPORINS; ph 08:05 Ciprofloxacin; ph 08:05 Cortisone; ph 08:05 Cortizone-10; ph 08:05 Erythromycin; ph 08:05 IVIG; ph 08:05 PENICILLINS; ph 08:05 Phenobarbital; ph 08:05 Tape; ph - Home Meds: 08:05 amlodipine 10 mg tab 1 tab once daily [Active]; azathioprine 50 mg Oral tab 1 tab 2 ph times per day [Active]; clonazepam 0.5 mg Oral tab 1 tab daily [Active]; furosemide 20 mg Oral tab 1 tab nightly [Active]; Klor-Con 10 10 mEq Oral TbER 1 tab 2 times per day [Active]; Levemir 100 unit/mL subcutaneous soln 25 unit nightly [Active]; levothyroxine 88 mcg tab 1 tab once daily [Active]; Novolog 10 units Sub-Q soln before meals [Active]; prednisone 20 mg Oral tab 1 tab once daily [Active]; pyridostigmine bromide 60 mg Oral tab 1 tab 3 times per day [Active]; ramipril 2.5 mg Oral cap 1 cap once daily [Active]; rosuvastatin 20 mg Oral tab 1 tab nightly [Active]; sertraline 25 mg Oral tab 1 tab once daily [Active]; sulfamethoxazole-trimethoprim Oral [Active]; - PMHx: 08:05 Ankylosing Spondylitis; Anxiety; CHF; Depression; Diabetes - IDDM; High Cholesterol; ph Hypertension; Hypothyroidism; Myasthenia Gravis; Myocardial infarction; Osteoporosis; - PSHx: 08:05 brain shunt; meningioma; neck sx; spinal sx; Carpal Tunnel Repair; Cholecystectomy; ph - Immunization history:: Adult Immunizations unknown. - Social history:: Smoking status: Patient denies any tobacco usage or history of. - Immunization history: Last tetanus immunization: unknown. ROS: 11:32 Constitutional: Negative for fever, chills, and weight loss, Eyes: Negative for kdr discharge - she has a large hematoma right periorbital ENT: Negative for injury, pain, and discharge, Neck: Negative for injury, pain, and swelling, Cardiovascular: Negative for chest pain, palpitations, and edema, Respiratory: Negative for shortness of breath, cough, wheezing, and pleuritic chest pain, Abdomen/GI: Negative for abdominal pain, nausea, vomiting, diarrhea, and constipation, Back: Negative for injury and pain, : Negative for injury, bleeding, discharge, and swelling, Neuro: Negative for headache, weakness, numbness, tingling, and seizure activity. Psych: Negative for depression, anxiety, suicide ideation, homicidal ideation, and hallucinations, Allergy/Immunology: Negative for hives, rash, and allergies, Endocrine: Negative for neck swelling, polydipsia, polyuria, polyphagia, and marked weight changes, Hematologic/Lymphatic: Negative for swollen nodes, abnormal bleeding, and unusual bruising. 11:32 MS/extremity: Positive for injury or acute deformity, The patient has multiple abrasions and skin tears to her arms from the elbow down. She c/o pain in the right hand, elbow and knee. Exam: 11:32 Constitutional: This is a well developed, well nourished patient who is awake, alert, kdr and in no acute distress. Head/Face: The patinet has large laceration to the right forehead above the right orbit Eyes: Pupils equal round and reactive to light, extra-ocular motions intact. Lids and lashes normal. Conjunctiva and sclera are non-icteric and not injected. Cornea within normal limits. Periorbital areas with no swelling, redness, or edema. Neck: Trachea midline, no thyromegaly or masses palpated, and no cervical lymphadenopathy. Supple, full range of motion without nuchal rigidity, or vertebral point tenderness. No Meningismus. Chest/axilla: Normal chest wall appearance and motion. Nontender with no deformity. No lesions are appreciated. Cardiovascular: Regular rate and rhythm with a normal S1 and S2. No gallops, murmurs, or rubs. Normal PMI, no JVD. No pulse deficits. Respiratory: Lungs have equal breath sounds bilaterally, clear to auscultation and percussion. No rales, rhonchi or wheezes noted. No increased work of breathing, no retractions or nasal flaring. Abdomen/GI: Soft, non-tender, with normal bowel sounds. No distension or tympany. No guarding or rebound. No evidence of tenderness throughout. Back: No spinal tenderness. No costovertebral tenderness. Full range of motion. MS/ Extremity: Pulses equal, no cyanosis. Neurovascular intact. Full, normal range of motion. Neuro: Awake and alert, GCS 15, oriented to person, place, time, and situation. Cranial nerves II-XII grossly intact. Motor strength 5/5 in all extremities. Sensory grossly intact. Cerebellar exam normal. Normal gait. Psych: Awake, alert, with orientation to person, place and time. Behavior, mood, and affect are within normal limits. 11:32 Skin: injury, abrasion(s), contusion(s), that are deep, Both arms from the elbow down. Vital Signs: 07:55 BP 137 / 80; Pulse 76; Resp 18; Temp 97.0; Pulse Ox 97% on R/A; ph 09:30 BP 129 / 89; Pulse 74; Resp 18; Pulse Ox 98% on R/A; ph 10:47 BP 132 / 89; Pulse 71; Resp 18; Pulse Ox 97% on R/A; ph 11:30 BP 139 / 78; Pulse 76; Resp 16; Pulse Ox 99% on R/A; ph 12:45 BP 123 / 78; Pulse 73; Resp 16; Temp 97.9; Pulse Ox 97% on R/A; ph Spring Coma Score: 07:56 Eye Response: spontaneous(4). Verbal Response: oriented(5). Motor Response: obeys ph commands(6). Total: 15. 09:30 Eye Response: spontaneous(4). Verbal Response: oriented(5). Motor Response: obeys ph commands(6). Total: 15. 10:47 Eye Response: spontaneous(4). Verbal Response: oriented(5). Motor Response: obeys ph commands(6). Total: 15. 11:30 Eye Response: spontaneous(4). Verbal Response: oriented(5). Motor Response: obeys ph commands(6). Total: 15. 12:45 Eye Response: spontaneous(4). Verbal Response: oriented(5). Motor Response: obeys ph commands(6). Total: 15. Trauma Score (Adult): 07:56 Eye Response: spontaneous(1); Verbal Response: oriented(1); Motor Response: obeys ph commands(2); Systolic BP: > 89 mm Hg(4); Respiratory Rate: 10 to 29 per min(4); Louisa Score: 15; Trauma Score: 12 09:30 Eye Response: spontaneous(1); Verbal Response: oriented(1); Motor Response: obeys ph commands(2); Systolic BP: > 89 mm Hg(4); Respiratory Rate: 10 to 29 per min(4); Louisa Score: 15; Trauma Score: 12 10:47 Eye Response: spontaneous(1); Verbal Response: oriented(1); Motor Response: obeys ph commands(2); Systolic BP: > 89 mm Hg(4); Respiratory Rate: 10 to 29 per min(4); Louisa Score: 15; Trauma Score: 12 11:30 Eye Response: spontaneous(1); Verbal Response: oriented(1); Motor Response: obeys ph commands(2); Systolic BP: > 89 mm Hg(4); Respiratory Rate: 10 to 29 per min(4); Louisa Score: 15; Trauma Score: 12 12:45 Eye Response: spontaneous(1); Verbal Response: oriented(1); Motor Response: obeys ph commands(2); Systolic BP: > 89 mm Hg(4); Respiratory Rate: 10 to 29 per min(4); Spring Score: 15; Trauma Score: 12 Laceration: 11:05 Wound Repair of 13cm ( 5.1in ) subcutaneous laceration to face. Irregularly shaped.. cp Distal neuro/vascular/tendon intact. Anesthesia: Wound infiltrated with 15 mls of Lido/Marcaine. Wound prep: Simple cleansing by me. Skin closed with 21 5-0 Prolene using interrupted sutures and sterile technique. Dressed with Bacitracin, 4x4's. Patient tolerated well. MDM: 11:32 Data reviewed: vital signs, nurses notes, lab test result(s), EKG, radiologic studies. kdr Counseling: I had a detailed discussion with the patient and/or guardian regarding: the historical points, exam findings, and any diagnostic results supporting the discharge/admit diagnosis, lab results, radiology results, the need for outpatient follow up. 11:46 Patient medically screened. [facility] 05/23 08:11 Order name: Basic Metabolic Panel; Complete Time: 11:24 [facility] 05/23 08:11 Order name: CBC with Diff; Complete Time: 11:24 [facility] 05/23 08:09 Order name: Head C Spine Mpr Wo Con; Complete Time: 09:11 [facility] 05/23 08:11 Order name: Type And Screen [facility] 05/23 10:35 Order name: Manual Differential; Complete Time: 11:24 [facility] 05/23 13:16 Order name: Antibody Identification [facility] 05/23 08:09 Order name: Facial Bones W/ Mpr; Complete Time: 09:11 [facility] 05/23 08:11 Order name: Hand Right 3 View XRAY; Complete Time: 11:24 [facility] 05/23 08:11 Order name: Knee Right 3 View XRAY; Complete Time: 11:24 [facility] 05/23 08:28 Order name: Elbow Right 3 View; Complete Time: 11:24 [facility] 05/23 12:02 Order name: Shoulder Right (2 View) XRAY [facility] 05/23 08:11 Order name: Labs collected and sent; Complete Time: 09:55 kdr 05/23 11:28 Order name: Misc. Order: Clean and dress wounds; Complete Time: 11:46 kdr 05/23 11:28 Order name: Ice pack; Complete Time: 11:46 kdr 05/23 11:31 Order name: Splint: Volar aspect of right hand; Complete Time: 12:23 kdr 05/23 12:02 Order name: Clavicle Right XRAY kdr Administered Medications: 12:15 Drug: Zofran (Ondansetron) 4 mg Route: IVP; Site: Port-a-cath; ph 13:58 Follow up: Response: No adverse reaction ph 12:17 Drug: morphine 4 mg Route: IVP; Site: Port-a-cath; ph 12:30 Follow up: Response: No adverse reaction; Pain is decreased ph 12:19 Drug: Clindamycin 300 mg Route: PO; ph 13:59 Follow up: Response: No adverse reaction ph 12:19 Drug: Tetanus-Diphtheria Toxoid Adult 0.5 ml {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 Exp: ph 08/21/2020. Lot #: [id number]. } Route: IM; Site: left deltoid; 13:59 Follow up: Response: No adverse reaction ph Disposition: 11:32 Co-signature as Attending Physician, Eulogio Yoder MD. kdr Disposition: 05/23/20 11:46 Discharged to Home. Impression: Right facial trauma and forehead laceration, Multlpe abrasions to upper extremiteis from the elbow distally, right knee contusion. Fracture thrid metacarpal/nondisplaced to the right hand, Superficial injury of head. - Condition is Stable. - Discharge Instructions: Hematoma, Bqdh-qx-Cpri, Contusion, Ydaw-ut-Lafd, Facial Laceration, Treg-yr-Jipk, Head Injury, Adult, Dizj-gr-Pnuv, Facial or Scalp Contusion, Fmmv-it-Cdxz. - Prescriptions for Clindamycin HCl 300 mg Oral Capsule - take 1 capsule by ORAL route every 6 hours for 3 days; 12 capsule. Tramadol 50 mg Oral Tablet - take 1 tablet by ORAL route every 8 hours as needed; 12 tablet. - Medication Reconciliation Form, Thank You Letter, Antibiotic Education, Prescription Opioid Use form. - Follow up: Private Physician; When: 2 - 3 days; Reason: If symptoms return, Further diagnostic work-up, Recheck today's complaints, Continuance of care, Re-evaluation by your physician. - Problem is new. - Symptoms have improved. 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 EDTX EDMS 08:17 08:12 Facial Bones W/ MPR+CT.RAD.BRZ ordered. EDTX EDMS 08:28 08:12 Elbow Left 3 View+RAD.RAD.BRZ ordered. EDTX EDMS 13:59 11:46 05/23/2020 11:46 Discharged to Home. Impression: Right facial trauma and forehead ph laceration, Multlpe abrasions to upper extremiteis from the elbow distally, right knee contusion. Fracture thrid metacarpal/nondisplaced to the right hand; Superficial injury of head. Condition is Stable. Forms are Medication Reconciliation Form, Thank You Letter, Antibiotic Education, Prescription Opioid Use. Follow up: Private Physician; When: 2 - 3 days; Reason: If symptoms return, Further diagnostic work-up, Recheck today's complaints, Continuance of care, Re-evaluation by your physician. Problem is new. Symptoms have improved. kdr
--- NOTE | 2020-05-23 11:47 | ER ---
Nurse's Notes [facility] Name: Franci Lange Age: 75 yrs Sex: Female : 1945 Arrival Date: 05/23/2020 Time: 07:55 Bed 2 Private MD: Diagnosis: Right facial trauma and forehead laceration, Multlpe abrasions to upper extremiteis from the elbow distally, right knee contusion. Fracture thrid metacarpal/nondisplaced to the right hand;Superficial injury of head Presentation: 05/23 07:55 Chief complaint: EMS states: Was attempting to stand up from wheelchair and fell, hit ph head on tile floor, denies LOC, large laceration/avulsion sustained to R forehead, hematoma to L side of head, bilateral skin tears, denies LOC, c/o pain to R elbow, R hand, R knee and R ankle, does not take blood thinners. Coronavirus screen: Client denies travel out of the [place] in the last 14 days. At this time, the client does not indicate any symptoms associated with coronavirus-19. Ebola Screen: No symptoms or risks identified at this time. Initial Sepsis Screen: Does the patient meet any 2 criteria? No. Patient's initial sepsis screen is negative. Does the patient have a suspected source of infection? No. Patient's initial sepsis screen is negative. Risk Assessment: Do you want to hurt yourself or someone else? Patient reports no desire to harm self or others. Onset of symptoms was May 23, 2020. 07:55 Method Of Arrival: EMS: [facility] 07:55 Acuity: JAY 2 07:55 Care prior to arrival: Bleeding of injury controlled. Mechanism of Injury: Fall from standing position. Trauma event details: Injury occurred in the [facility], Injury occurred: [facility] [facility] Injury occurred: May 23, 2020. Trauma Activation: Physician: ED Physician; Name: Paresh; Notified At: 07:55; Arrived At: 07:58 Physician: General Surgeon; Name: ; Notified At: 07:55; Arrived At: Physician: Radiology; Name: ; Notified At: 07:55; Arrived At: Physician: Respiratory; Name: ; Notified At: 07:55; Arrived At: Physician: Lab; Name: ; Notified At: 07:55; Arrived At: Historical: - Allergies: 08:05 Aspirin; ph 08:05 cefepime; ph 08:05 CEPHALOSPORINS; ph 08:05 Ciprofloxacin; ph 08:05 Cortisone; ph 08:05 Cortizone-10; ph 08:05 Erythromycin; ph 08:05 IVIG; ph 08:05 PENICILLINS; ph 08:05 Phenobarbital; ph 08:05 Tape; ph - Home Meds: 08:05 amlodipine 10 mg tab 1 tab once daily [Active]; azathioprine 50 mg Oral tab 1 tab 2 ph times per day [Active]; clonazepam 0.5 mg Oral tab 1 tab daily [Active]; furosemide 20 mg Oral tab 1 tab nightly [Active]; Klor-Con 10 10 mEq Oral TbER 1 tab 2 times per day [Active]; Levemir 100 unit/mL subcutaneous soln 25 unit nightly [Active]; levothyroxine 88 mcg tab 1 tab once daily [Active]; Novolog 10 units Sub-Q soln before meals [Active]; prednisone 20 mg Oral tab 1 tab once daily [Active]; pyridostigmine bromide 60 mg Oral tab 1 tab 3 times per day [Active]; ramipril 2.5 mg Oral cap 1 cap once daily [Active]; rosuvastatin 20 mg Oral tab 1 tab nightly [Active]; sertraline 25 mg Oral tab 1 tab once daily [Active]; sulfamethoxazole-trimethoprim Oral [Active]; - PMHx: 08:05 Ankylosing Spondylitis; Anxiety; CHF; Depression; Diabetes - IDDM; High Cholesterol; ph Hypertension; Hypothyroidism; Myasthenia Gravis; Myocardial infarction; Osteoporosis; - PSHx: 08:05 brain shunt; meningioma; neck sx; spinal sx; Carpal Tunnel Repair; Cholecystectomy; ph - Immunization history:: Adult Immunizations unknown. - Social history:: Smoking status: Patient denies any tobacco usage or history of. - Immunization history: Last tetanus immunization: unknown. Screenin:39 Abuse screen: Denies threats or abuse. Denies injuries from another. Nutritional ph screening: No deficits noted. Tuberculosis screening: No symptoms or risk factors identified. Fall Risk Fall in past 12 months (25 points). Secondary diagnosis (15 points) No IV (0 pts). Ambulatory Aid- None/Bed Rest/Nurse Assist (0 pts). Gait- Weak (10 pts.). Mental Status- Oriented to own ability (0 pts). Total Badillo Fall Scale indicates High Risk Score (45 or more points). Fall prevention measures have been instituted. Side Rails Up X 2 Placed Close to Nursing Station Frequent Obs/Assessments Occuring As available patient and family educated on Fall Prevention Program and Strategies. Primary Survey: 07:56 NO uncontrolled hemorrhage observed. A: The patient is alert. Airway: patent, No ph supplemental oxygen in use on arrival. Oral cavity: clear, Trachea midline. Breathing/Chest: Respiratory pattern: regular, Respiratory effort: spontaneous, unlabored, Chest inspection: symmetrical rise and fall of the chest. Circulation: Skin color: pink, Skin temperature: warm, dry. Disability Alert. Exposure/Environment: There is no evidence of uncontrolled external bleeding. Obvious injury(ies) are noted at this time: skin tears to gretchen arms, laceration/avulsion to R forehead, hematoma to L side of head. 13:56 Reassessment Airway Airway Patent Breathing/Chest Respiratory pattern Regular ph Respiratory effort Spontaneous Unlabored Breath sounds Clear Chest inspection Symmetrical Circulation Color Sour John Temperature Warm Dry Disability Alert. Assessment: 08:00 General: Appears in no apparent distress. uncomfortable, Behavior is calm, cooperative, ph appropriate for age. Pain: Complains of pain in right side of forehead, right eye, right hand, right knee, left elbow. Neuro: Level of Consciousness is awake, alert, obeys commands, Oriented to person, place, time, situation. EENT: swelling and purple bruising to R eye. Cardiovascular: Capillary refill < 3 seconds in bilateral fingers Patient's skin is warm and dry. Respiratory: Airway is patent Respiratory effort is even, unlabored. GI: No signs and/or symptoms were reported involving the gastrointestinal system. Derm: Skin is fragile, is thin, Skin is pink, warm \T\ dry. Derm: Wound noted skin tears noted below R eye, Right elbow, dorsal aspect of R hand and L elbow. Musculoskeletal: Circulation, motion, and sensation intact. Range of motion: intact in all extremities. Injury Description: Laceration sustained to right side of forehead is full thickness, jagged, 2.6 to 7.5 cm long, bleeding moderately. 08:04 Reassessment: Pt taken to CT via stretcher. ph 09:26 Reassessment: Patient appears in no apparent distress at this time. Patient and/or ph family updated on plan of care and expected duration. Pain level reassessed. Patient is alert, oriented x 3, equal unlabored respirations, skin warm/dry/pink. Luther CAMPBELL at bedside for laceration repair. 09:33 Reassessment: Accessed port-a-cath, flushes easily but unable to draw blood, lab ph contacted for blood draw. 09:55 Reassessment: Patient appears in no apparent distress at this time. Patient and/or ph family updated on plan of care and expected duration. Pain level reassessed. 12:15 Reassessment: Patient appears in no apparent distress at this time. Patient and/or ph family updated on plan of care and expected duration. Pain level reassessed. Patient is alert, oriented x 3, equal unlabored respirations, skin warm/dry/pink. Wounds cleaned and dressed, pt tolerated well. 12:23 Reassessment: D/C pending Xray results. ph 12:35 Reassessment: Patient appears in no apparent distress at this time. Patient and/or ph family updated on plan of care and expected duration. Pain level reassessed. Patient is alert, oriented x 3, equal unlabored respirations, skin warm/dry/pink. Report called to Deepika Rascon, awaiting transportation back to facility. Vital Signs: 07:55 BP 137 / 80; Pulse 76; Resp 18; Temp 97.0; Pulse Ox 97% on R/A; ph 09:30 BP 129 / 89; Pulse 74; Resp 18; Pulse Ox 98% on R/A; ph 10:47 BP 132 / 89; Pulse 71; Resp 18; Pulse Ox 97% on R/A; ph 11:30 BP 139 / 78; Pulse 76; Resp 16; Pulse Ox 99% on R/A; ph 12:45 BP 123 / 78; Pulse 73; Resp 16; Temp 97.9; Pulse Ox 97% on R/A; ph Louisa Coma Score: 07:56 Eye Response: spontaneous(4). Verbal Response: oriented(5). Motor Response: obeys ph commands(6). Total: 15. 09:30 Eye Response: spontaneous(4). Verbal Response: oriented(5). Motor Response: obeys ph commands(6). Total: 15. 10:47 Eye Response: spontaneous(4). Verbal Response: oriented(5). Motor Response: obeys ph commands(6). Total: 15. 11:30 Eye Response: spontaneous(4). Verbal Response: oriented(5). Motor Response: obeys ph commands(6). Total: 15. 12:45 Eye Response: spontaneous(4). Verbal Response: oriented(5). Motor Response: obeys ph commands(6). Total: 15. Trauma Score (Adult): 07:56 Eye Response: spontaneous(1); Verbal Response: oriented(1); Motor Response: obeys ph commands(2); Systolic BP: > 89 mm Hg(4); Respiratory Rate: 10 to 29 per min(4); Occidental Score: 15; Trauma Score: 12 09:30 Eye Response: spontaneous(1); Verbal Response: oriented(1); Motor Response: obeys ph commands(2); Systolic BP: > 89 mm Hg(4); Respiratory Rate: 10 to 29 per min(4); Louisa Score: 15; Trauma Score: 12 10:47 Eye Response: spontaneous(1); Verbal Response: oriented(1); Motor Response: obeys ph commands(2); Systolic BP: > 89 mm Hg(4); Respiratory Rate: 10 to 29 per min(4); Occidental Score: 15; Trauma Score: 12 11:30 Eye Response: spontaneous(1); Verbal Response: oriented(1); Motor Response: obeys ph commands(2); Systolic BP: > 89 mm Hg(4); Respiratory Rate: 10 to 29 per min(4); Louisa Score: 15; Trauma Score: 12 12:45 Eye Response: spontaneous(1); Verbal Response: oriented(1); Motor Response: obeys ph commands(2); Systolic BP: > 89 mm Hg(4); Respiratory Rate: 10 to 29 per min(4); Occidental Score: 15; Trauma Score: 12 ED Course: 07:55 Patient arrived in ED. ph 08:00 Triage completed. ph 08:02 Eulogio Yoder MD is Attending Physician. kdr 08:20 Head C Spine Mpr Wo Con In Process Unspecified. EDMS 08:20 Facial Bones W/ Mpr In Process Unspecified. EDMS 08:31 Hand Right 3 View XRAY In Process Unspecified. EDMS 08:31 Knee Right 3 View XRAY In Process Unspecified. EDMS 08:31 Elbow Right 3 View In Process Unspecified. EDMS 08:39 Alanis Almonte, RN is Primary Nurse. ph 08:40 Patient maintains SpO2 saturation greater than 95% on room air. Thermoregulation: warm ph blanket given to patient. 08:44 Patient has correct armband on for positive identification. Bed in low position. Call ph light in reach. Side rails up X2. Pulse ox on. NIBP on. Door closed. Noise minimized. Warm blanket given. 09:25 Accessed Port-a-Cath. using accessed w/ # 20 Donahue needle, Clean \T\ dry. Dressing ph intact. No blood return. Flushes easily. Missed attempt(s): 24 gauge in left upper arm. Bleeding controlled, band aid applied, catheter tip intact. 09:26 Arm band placed on Patient placed in an exam room, on a stretcher, on pulse oximetry. ph 11:45 Assist provider with laceration repair on right side of forehead that was between 2.6 ph to 7.5 cm using sutures. Set up tray. Performed by Luther CAMPBELL Dressed with Neosporin, Patient tolerated well. 12:15 Wound care: to skin tears to gretchen elbows and R hand, irrigated and dressed w/ Neosporin ph and non adherent gauze. Wound care: to skin tear below R eye, cleaned with soap and water and dressed w/ neosporin and bandaid, non adherent gauze also placed to wound above R eye. 13:03 Shoulder Right (2 View) XRAY In Process Unspecified. EDMS 13:03 Clavicle Right XRAY In Process Unspecified. EDMS 13:47 No provider procedures requiring assistance completed. IV discontinued, intact, ph bleeding controlled, No redness/swelling at site. Pressure dressing applied. Administered Medications: 12:15 Drug: Zofran (Ondansetron) 4 mg Route: IVP; Site: Port-a-cath; ph 13:58 Follow up: Response: No adverse reaction ph 12:17 Drug: morphine 4 mg Route: IVP; Site: Port-a-cath; ph 12:30 Follow up: Response: No adverse reaction; Pain is decreased ph 12:19 Drug: Clindamycin 300 mg Route: PO; ph 13:59 Follow up: Response: No adverse reaction ph 12:19 Drug: Tetanus-Diphtheria Toxoid Adult 0.5 ml {Leaf Conditioner Helper: [place]. Exp: ph 08/21/2020. Lot #: [id number]. } Route: IM; Site: left deltoid; 13:59 Follow up: Response: No adverse reaction ph Intake: 07:56 PO: 0ml; Total: 0ml. ph 12:45 PO: 0ml; Total: 0ml. ph Output: 07:56 Urine: 0ml; Total: 0ml. ph 12:45 Urine: 0ml; Total: 0ml. ph Outcome: 11:46 Discharge ordered by . kdr 13:57 Discharged to halfway. ph 13:57 Condition: good 13:57 Discharge instructions given to patient, halfway, Instructed on discharge instructions, follow up and referral plans. medication usage, wound care, Demonstrated understanding of instructions, follow-up care, medications, wound care, Prescriptions given X 2. 13:57 Patient's length of stay in the Emergency Department was greater than 2 hours. awaiting ph xray results, and transport back to nursing homePatient's length of stay extended due to 13:59 Patient left the ED. ph Signatures: Dispatcher [employer] Eulogio Singh MD MD kdr Hall, Patricia, RN RN ph
[2020-05-23] MEDS ORDERED: TETANUS & DIPHTHERIA TOX,ADULT 0.5 ML VIAL ONE (12:08)
[2020-05-23] MEDS ORDERED: MORPHINE 4 MG/ML SYR ONE (12:27)
[2020-05-23] MEDS ORDERED: ONDANSETRON 4 MG/2 ML VIAL ONE (12:27)
[2020-05-23] MEDS ORDERED: HEPARIN 500 UNIT/5 ML SYR IV ONE (12:28)
--- NOTE | 2020-05-23 13:14 | RAD REPORT ---
EXAM DESCRIPTION: Shoulder Right 2 View - 05/23/2020 1:03 pm CLINICAL HISTORY: PAIN COMPARISON: Shoulder Right 2 View dated 06/25/2019 TECHNIQUE: Internal and external rotation views of the right shoulder were obtained. FINDINGS: There is no fracture or dislocation. Prominent degenerative change present at the AC join t with prominent degenerative change involving the acromion as well. Acromial humeral joint space is narrowed. Chronic supraspinatus rotator cuff tear is suspected. No calcified loose bodies identified. No acute or suspicious findings. IMPRESSION: Right shoulder degenerative change as detailed. No acute finding or significant change f rom June.
--- NOTE | 2020-05-23 13:15 | RAD REPORT ---
EXAM DESCRIPTION: RAD - Clavicle Right - 05/23/2020 1:03 pm CLINICAL HISTORY: PAIN, trauma COMPARISON: Right shoulder same date FINDINGS: Degenerative change at the sternoclavicular joint is similar to the left-side. No fracture of the clavicle. AC joint degenerative changes are present detailed on the shoulder report. IMPRESSION: Degenerative change to the right clavicle as detailed. No acute finding.
[2020-05-23 17:45] VITALS: BP 123/78; TEMP 97.9; O2SAT 97
== END 2020-05-23 13:59 | disposition home or self-care (01) ==
LOC: ER 07:54
PROC: 0JQ10ZZ Repair Face Subcutaneous Tissue and Fascia, Open Approach (ICD-10-PCS; principal; 2020-05-23)
DX: S01.81XA Laceration without foreign body of other part of head, initial encounter (principal); S62.352A Nondisplaced fracture of shaft of third metacarpal bone, right hand, initial encounter for closed fracture; S50.812A Abrasion of left forearm, initial encounter; S50.811A Abrasion of right forearm, initial encounter; S80.01XA Contusion of right knee, initial encounter; W05.0XXA Fall from non-moving wheelchair, initial encounter; Y93.89 Activity, other specified; Y92.9 Unspecified place or not applicable; I10 Essential (primary) hypertension; F41.8 Other specified anxiety disorders; E11.9 Type 2 diabetes mellitus without complications; E78.00 Pure hypercholesterolemia, unspecified; E03.9 Hypothyroidism, unspecified; Z23 Encounter for immunization; Z79.4 Long term (current) use of insulin; Z88.0 Allergy status to penicillin; Z88.1 Allergy status to other antibiotic agents; Z88.3 Allergy status to other anti-infective agents; Z88.5 Allergy status to narcotic agent; Z88.6 Allergy status to analgesic agent; Z88.8 Allergy status to other drugs, medicaments and biological substances; Z91.048 Other nonmedicinal substance allergy status
CPT/HCPCS: 85025; 80048; 36415; 86900; 86850; 86901; 70450; 72125; 70486; 76377; 73130; 73080; 73030; 73000; 73562; 90471; 90714; 96375; 96374; 99285; 12016; J1642; J2405

== ENCOUNTER 2020-08-17 17:39 | Emergency (ER) | payer OTHER ==
--- OUTSIDE RECORDS SUMMARY | 2020-08-17 18:11 | XMS REPORT | Continuity of Care Document ---
:1945 Author Organization [facility] t Address [address] [place] [address] Care Team Providers Name Role Phone Ayush Scott Primary Care Physician Unavailable Adriana DANG, Robert Attending Clinician NOELLE Attending Clinician Unavailable Paulino Hair DO Attending Clinician Tres NIÑO, L Attending Clinician Unavailable Van DANG Attending Clinician Hernán DANG Attending Clinician Giovani Miguel Attending Clinician Socorro Schafer MD [...] Attending Clinician SOSA NDIAYE Attending Clinician Unavailable Hernán DANG Admitting Clinician Donnell Macedo Admitting Clinician Stacia REECE Admitting Clinician Unavailable Asim Christopher Admitting Clinician Chris Jim Admitting Clinician Luis Coy Admitting Clinician Alyx Hanley Admitting Clinician Yasir Cortés Admitting Clinician SOSA NDIAYE Admitting Clinician Unavailable Payers Payer Name Policy Type Policy Number Effective Date Expiration Date S starr AETNA - MEDICARE [id number] [address] [facility] MGD CAREAETNA 00:00:00 - Medical MEDICARE O POS Center [id number] [address] Problems Condition Condition Condition Status Onset Resolution Last Treating Co mments Source Name Details Category Date Date Treatment Clinician Date MYASTHENIA Diagnosis Active 2020-03-01 Memoria GRAVIS 02-14 21:46:00 l WITH ACUTE 00:00: Berto gomez EXACERBATI MYASTHENIA 00 O GRAVIS WITH ACUTE EXACERBATI O Active 02/15/2020 [facility] Myasthenia Myasthenia Disease Active [facility] with acute with acute 00:00: Me dical exacerbati exacerbati 00 Ce nter on on C-7,T-4 Diagnosis Active 2019-12-14 Dc moria FX,ESOPHAG 11-20 09:22:00 l EAL TEAR C-7,T-4 03:51: Gerda nn FX,ESOPHAG 00 EAL TEAR Active 11/21/2019 [facility] MYASTHENIA Diagnosis Active 2019-03-10 Memoria GRAVIS 02-05 22:12:00 l WEAKNESS 00:00: Jorge Alberto MYASTHENIA 00 GRAVIS WEAKNESS Active 02/05/2019 [facility] MYASTHENIA Diagnosis Active 2019-01-04 Memoria GRAVIS 7- 08:31:00 l 00:00: Jorge Alberto MYASTHENIA 00 GRAVIS Active 12/24/2018 [facility] DIABETIC Diagnosis Active 2018-12-08 M emoria 7- 05:43:00 l DIABETIC 00:00: Berto n 00 Active 11/29/2018 [facility] DYSPHAGIA Diagnosis Active 2018-09-30 Memoria 4-11 08:27:00 l 00:00: Jorge Alberto DYSPHAGIA 00 Active 09/09/2018 [facility] RESOLVED Diagnosis Active 2018-09-22 M emoria VISION 4-10 15:15:00 l LOSS IN RESOLVED 00:00: Gerda nn LEFT EYE VISION 00 LOSS IN LEFT EYE Active 09/08/[address] [facility] SLURRED Diagnosis Active 2018-08-26 Me moria SPEECH 3-18 22:20:00 l SLURRED 00:00: [place] SPEECH 00 Active 08/16/2018 [facility] STROKE Diagnosis Active 2018-08-16 Mem oria SYMPTOMS 3-18 20:18:00 l STROKE 00:00: Jorge Alberto SYMPTOMS 00 Active 08/16/2018 [facility] Trigger Trigger Disease Active [facility] finger finger 9[facility] Benign Problem Active 2018-12-01 Memor ia neoplasm 1-14 21:28:18 l of Benign 00:00: Jorge Alberto cerebral neoplasm 00 meninges of (disorder) cerebral meninges (disorder) Active 06/14/2012 Problem 12/01/2018 Data migrated from [employer] [facility] on 01/23/15. Julia [facility], Natasha Acosta [facility] BAD Diagnosis Active 2010-062011-03-22 Mem oria REACTION 0-22 06:07:00 l TO BAD 00:00: [place] MEDICATION REACTION 00 TO MEDICATION Active 03/22/2011 [facility] DEHYDRATIO Diagnosis Active 2010-062011-03-27 Memoria N,PAIN 0-22 13:56:00 l CONTROL 00:00: Jorge Alberto DEHYDRATIO 00 N,PAIN CONTROL Active 03/22/2011 [facility] LEG CRAMPS Diagnosis Active 2010-062011-03-14 Memoria 0-13 04:56:00 l LEG 00:00: [place] CRAMPS 00 Active 03/13/2011 [facility] DEHYDRATIO Diagnosis Active 2010-062011-03-17 Memoria N 0-13 12:08:00 l 00:00: Jorge Alberto DEHYDRATIO 00 N Active 03/13/2011 [facility] SDH Diagnosis Active 2011-03-20 Mem oria 02-24 21:57:00 l SDH 06:00: [place] 00 Active 02/24/2011 Rehabilita tion DM - Problem Active 2011-03-27 Memor ia Diabetes 02-18 08:54:23 l mellitus DM - 00:00: [place] Diabetes 00 mellitus Active 02/18/2011 Problem 03/27/2011 [facility] HYDROCEPHA Diagnosis Active 2011-03-05 Memoria TANJA 01-31 21:52:00 l 00:00: [place] HYDROCEPHA 00 TANJA Active 01/31/2011 [facility] BRAIN MASS Diagnosis Active 2011-02-20 Memoria 01-30 14:11:00 l BRAIN 06:00: [place] MASS 00 Active 01/30/2011 Rehabilita tion BRAIN Diagnosis Active 2011-02-04 Mem oria MASS/AWAKE 01-23 11:31:00 l BRAIN 00:00: [place] MASS/AWAKE 00 Active 01/23/2011 [facility] LIFE Diagnosis Active 2011-02-20 Mem oria FLIGHT 01-23 14:11:00 l LIFE 00:00: [place] FLIGHT 00 Active 01/23/2011 [facility] Increased Increased Problem Active Uni vers [...] [facility] meningioma meningioma d [facility] [place] [facility] Myasthenia Myasthenia Problem Active [facility] gravis in gravis in [facility] of crisis crisis [place] [facility] Myasthenia Myasthenia Problem Active [facility] [place] [facility] Osteoporos Osteoporos Problem Active [facility] [place] [facility] Osteopenia Osteopenia Problem Active [facility] [place] [facility] Pneumonia Pneumonia Problem Active [facility] [place] [facility] Depression Depression Problem Active [facility] [place] [facility] Arthritis Arthritis Problem Active [facility] [place] [facility] Back pain Back pain Problem Active [facility] [place] [facility] Encounter Encounter Problem Active [facility] [place] [facility] Other long Problem 2019-12-26 M emoria term 07:49:25 l (current) Other Berto n drug usp therapy (current) drug therapy 12/26/2019 [facility] Lethargic Problem Inactiv 2011-03-27 M emoria e 08:54:23 l Jorge Alberto Lethargic Inactive Problem 03/27/2011 [facility] Blindness Problem Resolve 2020-02-29 M emoria of one eye d 21:43:44 l (disorder) Berto gomez Blindness of one eye (disorder) Resolved Problem 02/29/[address] [facility], DOMONIQUE Azul, DOMONIQUE Kelly,[facility] Diabetes Problem Resolve 2020-02-29 Me moria mellitus d 21:43:44 l (disorder) Diabetes He rmann mellitus (disorder) Resolved Problem 02/29/2020 [facility], [place] Azul, DOMONIQUE Kelly,[facility] Heart Problem Resolve 2020-02-29 Kalia aida failure d 21:43:44 l (disorder) Heart Gerda nn failure (disorder) Resolved Problem 02/29/2020 systilic [facility], DOMONIQUE Azul, DOMONIQUE Kelly,[facility] Morbid Problem Resolve 2020-02-29 Kalia aida obesity d 21:43:44 l (disorder) Morbid Herm mercy obesity (disorder) Resolved Problem 02/29/2020 [facility], DOMONIQUE Azul, DOMONIQUE Kelly,[facility] Obstructiv Problem Resolve 2020-02-29 Memoria e sleep d 21:43:44 l apnea Jorge Alberto syndrome Obstructiv (disorder) e sleep apnea syndrome (disorder) Resolved Problem 02/29/2020 [facility], DOMONIQUE Azul, DOMONIQUE Kelly,[facility] Myasthenic Problem Resolve 2020-02-29 Memoria crisis d 21:43:44 l (disorder) Berot n Myasthenic crisis (disorder) Resolved Problem 02/29/2020 [facility], DOMONIQUE Azul Diabetes Problem Resolve 2020-02-29 Me moria mellitus d 21:43:44 l type 2 Diabetes Berto n (disorder) mellitus type 2 (disorder) Resolved Problem 02/29/2020 [facility], DOMONIQUE Azul Altered Problem Active 2018-12-01 Kalia aida mental 21:28:18 l status Altered Jorge Alberto (finding) mental status (finding) Active Problem 12/01/2018 [facility], DOMON[place] Kelly,[facility] Coronary Problem Active 2020-02-29 Mem oria arterioscl 21:43:44 l erosis Coronary Berto n (disorder) arterioscl erosis (disorder) Active Problem 02/29/2020 [facility], DOMONI[place] Azul, DOMONIQUE Kelly,[facility] Craniotomy Problem Active 2018-12-01 M emoria (procedure 21:28:18 l ) Jorge Alberto Craniotomy (procedure ) Active Problem 12/01/2018 [facility], DOMON[place]QUE Kelly,[facility] Hypertensi Problem Active 2020-02-29 M emoria ve 21:43:44 l disorder, [place] systemic Hypertensi arterial ve (disorder) disorder, systemic arterial (disorder) Active Problem 02/29/2020 [facility], DOMONIQUE Azul, DOMONIQUE Kelly,[facility] Hypothyroi Problem Active 2020-02-29 M emoria dism 21:43:44 l (disorder) Berto n Hypothyroi dism (disorder) Active Problem 02/29/2020 [facility], DOMONIQUE Azul, DOMONIQUE Kelly,[facility] Itching Problem Active 2018-12-01 Kalia aida (finding) 21:28:18 l Itching Jorge Alberto (finding) Active Problem 12/01/2018 [facility], DOMON[place] Kelly,[facility] Intracrani Problem Active 2018-12-01 M emoria al 21:28:18 l meningioma Berto n (disorder) Intracrani al meningioma (disorder) Active Problem 12/01/2018 [facility], DOMONIQUE Kelly,[facility] Pain Problem Active 2018-12-01 Memor ia (finding) 21:28:18 l Pain Jorge Alberto (finding) Active Problem 12/01/2018 [facility], DOMONIQUE Kelly,[facility] Visual Problem Active 2018-12-01 Memor ia disturbanc 21:28:18 l e Visual Jorge Alberto (disorder) disturbanc e (disorder) Active Problem 12/01/2018 [facility], DOMONIQUE Kelly,[facility] Body mass Problem Active 2020-02-29 Me moria index 40+ 21:43:44 l - severely Body Berto n obese mass index (finding) 40+ - severely obese (finding) Active Problem 02/29/2020 [facility] [place] Myasthenia Problem Active 2020-02-29 M emoria gravis 21:43:44 l (disorder) Berto n Myasthenia gravis (disorder) Active Problem 02/29/2020 [facility] OPID Jorge Alberto Recurrent Problem Active 2020-02-29 Me moria falls 21:43:44 l (finding) Jorge Alberto Recurrent falls (finding) Active Problem 02/29/2020 [facility] [place] Type II Problem Active 2020-02-29 Kalia aida diabetes 21:43:44 l mellitus Type II Gerda nn uncontroll diabetes ed mellitus (finding) uncontroll ed (finding) Active Problem 02/29/2020 [facility] [place] Altered Problem Active 2011-03-27 Kalia aida mental 08:54:23 l status Altered [place] mental status Active Problem 03/27/2011 [facility] Craniotomy Problem Active 2011-03-27 M emoria 08:54:23 l [place] Craniotomy Active Problem 03/27/2011 [facility] HTN - Problem Active 2011-03-27 Memor ia Hypertensi 08:54:23 l on HTN - [place] Hypertensi on Active Problem 1 [facility] Meningioma Problem Active 2011-03-27 M emoria of brain 08:54:23 l Jorge Alberto Meningioma of brain Active Problem 03/27/2011 [facility] Visual Problem Active 2011-03-27 Memor ia disturbanc 08:54:23 l e Visual Jorge Alberto disturbanc e Active Problem 03/27/2011 [facility] Itching Problem Active 2011-03-27 Kalia aida 08:54:23 l Itching [place] Active Problem 03/27/2011 [facility] Pain Problem Active 2011-03-27 Memor ia 08:54:23 l Pain [place] Active Problem 03/27/2011 [facility] BRAIN Diagnosis Active 2011-02-20 Mem oria NEOPLASM 14:11:00 l NOS BRAIN [place] NEOPLASM NOS Active Rehabilita tion ADMINISTRT Diagnosis Active 2011-02-04 Memoria VE ENCOUNT 11:31:00 l NOS [place] ADMINISTRT VE ENCOUNT NOS Active [facility] COMMUNICAT Diagnosis Active 2011-03-05 Memoria HYDROCEPHA 21:52:00 l TANJA Jorge Alberto COMMUNICAT HYDROCEPHA TANJA Active [facility] SUBDURAL Diagnosis Active 2011-03-20 M emoria HEMORRHAGE 21:57:00 l SUBDURAL Berto n HEMORRHAGE Active Rehabilita tion DEHYDRATIO Diagnosis Active 2011-03-27 Memoria N 13:56:00 l [place] DEHYDRATIO N Active [facility] MYASTHENIA Diagnosis Active 2018-09-30 Memoria GRAVIS 22:26:00 l WITHOUT Jorge Alberto (ACUTE) MYASTHENIA EXACER GRAVIS WITHOUT (ACUTE) EXACER Active [facility] ILLNESS, Diagnosis Active 2018-09-08 M emoria UNSPECIFIE 11:41:00 l D ILLNESS, Berto n UNSPECIFIE D Active [facility] OCULAR Diagnosis Active 2018-09-22 Mem oria PAIN, 15:15:00 l RIGHT EYE OCULAR Gerda nn PAIN, RIGHT EYE Active [facility] UNQUALIFIE Diagnosis Active 2018-09-22 Memoria D VISUAL 15:15:00 l LOSS, LEFT Berto n EYE, ALEXIA UNQUALIFIE D VISUAL LOSS, LEFT EYE, ALEXIA Active [facility] UNSP DISP Diagnosis Active 2019-12-14 Memoria FX OF 09:22:00 l SEVENTH UNSP [place] CERVICAL DISP FX OF VERTEBR SEVENTH CERVICAL VERTEBR Active [facility] Illness, Problem 2018-09-11 Mem oria unspecifie 23:20:51 l d Illness, Berto n unspecifie d 09/11/[address] [facility] 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:49:25 l syndrome Central Gerda nn at C7 cord level of syndrome cervical at C7 spinal level of cord, cervical initial spinal encounter cord, initial encounter 12/26/2019 [facility] Unspecifie Problem 2019-12-26 M emoria d fracture 07:49:25 l of fourth [place] thoracic Unspecifie vertebra, d fracture initial of fourth encounter thoracic for closed vertebra, fracture initial encounter for closed fracture 12/26/2019 [facility] Contusion Problem 2019-12-26 Me moria of other 07:49:25 l specified [place] intrathora Contusion cic of other organs, specified initial intrathora encounter cic organs, initial encounter 12/26/2019 [facility] Unspecifie Problem 2019-12-26 M emoria d fracture 07:49:25 l of second Jorge Alberto lumbar Unspecifie vertebra, d fracture initial of second encounter lumbar for closed vertebra, fracture initial encounter for closed fracture 12/26/2019 [facility] Chronic Problem 2019-12-26 Kalia aida systolic 07:49:25 l (congestiv Chronic Her restrepo e) heart systolic failure (congestiv e) heart failure 12/26/2019 [facility] Delirium Problem 2019-12-26 Mem oria due to 07:49:25 l known Delirium Berto n physiologi due to roger known condition physiologi roger condition 12/26/2019 [facility] Acute Problem 2019-12-26 Memor ia posthemorr 07:49:25 l hagic Acute Jorge Alberto anemia posthemorr hagic anemia 12/26/2019 [facility] Hydrocepha Problem 2019-12-26 M emoria tanja, 07:49:25 l unspecifie Berto n d Hydrocepha tanja, unspecifie d 12/26/2019 [facility] Unspecifie Problem 2019-12-26 M emoria d 07:49:25 l protein-ca Berto n bry Unspecifie malnutriti d on protein-ca bry malnutriti on 12/26/2019 [facility] Body mass Problem 2019-12-26 Dc moria index 07:49:25 l (BMI) Body [place] 40.0-44.9, mass index adult (BMI) 40.0-44.9, adult 12/26/2019 [facility] Ventricula Problem 2019-12-26 M emoria r 07:49:25 l tachycardi Berto n a Ventricula r tachycardi a 12/26/2019 [facility] Alkalosis Problem 2019-12-26 Dc moria 07:49:25 l Jorge Alberto Alkalosis 12/26/2019 [facility] Encephalop Problem 2019-12-26 M emoria athy, 07:49:25 l unspecifie Berto n d Encephalop athy, unspecifie d 12/26/2019 [facility] Gastrointe Problem 2019-12-26 M emoria stinal 07:49:25 l hemorrhage Berto n , Gastrointe unspecifie stinal d hemorrhage , unspecifie d 12/26/2019 [facility] Unspecifie Problem 2019-12-26 M emoria d 07:49:25 l displaced Jorge Alberto fracture Unspecifie of sixth d cervical displaced vertebra, fracture initial of sixth encounter cervical for closed vertebra, fracture initial encounter for closed fracture 12/26/2019 [facility] Unspecifie Problem 2019-12-26 M emoria d 07:49:25 l displaced Jorge Alberto fracture Unspecifie of seventh d cervical displaced vertebra, fracture initial of seventh encounter cervical for closed vertebra, fracture initial encounter for closed fracture 12/26/2019 [facility] Unspecifie Problem 2019-12-26 M emoria d 07:49:25 l displaced [place] fracture Unspecifie of fourth d cervical displaced vertebra, fracture initial of fourth encounter cervical for closed vertebra, fracture initial encounter for closed fracture 12/26/2019 [facility] Hypothyroi Problem 2019-12-26 M emoria dism, 07:49:25 l unspecifie Berto n d Hypothyroi dism, unspecifie d 12/26/2019 [facility] Old Problem 2019-12-26 Memor ia myocardial 07:49:25 l infarction Old Berto n myocardial infarction 12/26/2019 [facility] Hypertensi Problem 2019-12-26 M emoria ve heart 07:49:25 l disease Jorge Alberto with heart Hypertensi failure ve heart disease with heart failure 12/26/2019 [facility] Dysphagia, Problem 2019-12-26 M emoria unspecifie 07:49:25 l d Jorge Alberto Dysphagia, unspecifie d 12/26/2019 [facility] Atheroscle Problem 2019-12-26 M emoria rotic 07:49:25 l heart [place] disease of Atheroscle poarch rotic coronary heart artery disease of without poarch angina coronary pectoris artery without angina pectoris 12/26/2019 [facility] Physical Problem 2019-12-26 Mem oria restraint 07:49:25 l status Physical Berto n restraint status 12/26/2019 [facility] Unspecifie Problem 2019-12-26 M emoria d dementia 07:49:25 l without Jorge Alberto behavioral Unspecifie disturbanc d dementia e without behavioral disturbanc e 12/26/2019 [facility] intermediate card tender Problem 2019-12-26 Me moria (current) 07:49:25 l use of Long Jorge Alberto systemic term steroids (current) use of systemic steroids 12/26/2019 [facility] Hypokalemi Problem 2019-12-26 emoria a 07:49:25 l [place] Hypokalemi a 12/26/2019 [facility] Obstructiv Problem 2019-12-26 M emoria e sleep 07:49:25 l apnea Jorge Alberto (adult) Obstructiv (pediatric e sleep ) apnea (adult) (pediatric ) 12/26/2019 [facility] Other Problem 2019-12-26 Memor ia disorders 07:49:25 l of Other [place] phosphorus disorders metabolism of phosphorus metabolism 12/26/2019 [facility] Constipati Problem 2019-12-26 M emoria on, 07:49:25 l unspecifie Berto n d Constipati on, unspecifie d 12/26/2019 [facility] Fall on Problem 2019-12-26 Kalia aida same level 07:49:25 l from Fall on [place] slipping, same level tripping from and slipping, stumbling tripping without and subsequent stumbling striking without against subsequent object, striking initial against encounter object, initial encounter 12/26/2019 [facility] Other Problem 2019-12-26 Memor ia acute 07:49:25 l postproced Other Gerda nn ural pain acute postproced ural pain 12/26/2019 [facility] Acute pain Problem 2019-12-26 M emoria due to 07:49:25 l trauma Acute [place] pain due to trauma 12/26/2019 [facility] Abrasion Problem 2019-12-26 Mem oria of right 07:49:25 l upper arm, Abrasion He rmann initial of right encounter upper arm, initial encounter 12/26/2019 [facility] Type 2 Problem 2019-12-26 Memor ia diabetes 07:49:25 l mellitus Type 2 Berto n with diabetes hyperglyce mellitus saloni with hyperglyce saloni 12/26/2019 [facility] Morbid Problem 2019-12-26 Memor ia (severe) 07:49:25 l obesity Morbid Jorge Alberto due to (severe) excess obesity calories due to excess calories 12/26/2019 [facility] Type 2 Problem 2019-12-26 Memor ia diabetes 07:49:25 l mellitus Type 2 Berto n with diabetes hypoglycem mellitus ia without with coma hypoglycem ia without coma 0 [facility] Hyperlipid Problem 2019-12-26 M emoria emia, 07:49:25 l unspecifie Berto n d Hyperlipid emia, unspecifie d 12/26/2019 [facility] Chronic Problem 2019-12-26 Kalia aida obstructiv 07:49:25 l e Chronic [place] pulmonary obstructiv disease, e unspecifie pulmonary d disease, unspecifie d 12/26/2019 [facility] Hypomagnes Problem 2019-12-26 M emoria emia 07:49:25 l [place] Hypomagnes emia 0 [facility] Unqualifie Problem 2019-12-26 M emoria d visual 07:49:25 l loss, [place] right eye, Unqualifie normal d visual vision loss, left eye right eye, normal vision left eye 12/26/2019 [facility] Atheroscle Problem 2019-12-26 M emoria rosis of 07:49:25 l aorta [place] Atheroscle rosis of aorta 12/26/2019 [facility] Spinal Problem 2019-12-26 Memor ia stenosis, 07:49:25 l cervical Spinal Berto n region stenosis, cervical region 12/26/2019 [facility] Repeated Problem 2019-12-26 Mem oria falls 07:49:25 l Repeated Berto n falls 12/26/2019 [facility] Laceration Problem 2019-12-26 M emoria without 07:49:25 l foreign [place] body of Laceration right without forearm, foreign initial body of encounter right forearm, initial encounter 12/26/2019 [facility] Presence Problem 2019-12-26 Mem oria of 07:49:25 l cerebrospi Presence He rmann nal fluid of drainage cerebrospi device nal fluid drainage device 12/26/2019 [facility] Personal Problem 2019-12-26 Mem oria history of 07:49:25 l sudden Personal Berto n cardiac history of arrest sudden cardiac arrest 12/26/2019 [facility] History of Problem 2019-12-26 M emoria falling 07:49:25 l History Jorge Alberto of falling 12/26/2019 [facility] Family Problem 2019-12-26 Memor ia history of 07:49:25 l diabetes Family Berto n mellitus history of diabetes mellitus 12/26/2019 [facility] Personal Problem 2019-12-26 Mem oria history of 07:49:25 l benign Personal Berto n neoplasm history of of the benign brain neoplasm of the brain 12/26/2019 [facility] Allergies, Adverse Reactions, Alerts Allergy Allergy Status Severity Reaction(s) Onset Inactive Treating Comm ents Source Name Type Date Date Clinician Gabapent Drug Active Rash [facility] Other Propensi Active Other (See IVIG [facility] to Comments) 02-10 [facility] - adverse 00:00: large Medical reaction 00 blisters Center s b/l legs Penicill Drug Active Rash [facility] [place] Salicyla Drug Active Rash [facility] ramakrishna Allergy 02[facility]10 [facility] [place] Ciproflo Drug Active Anaphylaxis [facility] xacin Allergy 02-10 [facility] [place] Erythrom Drug Active Other (See Stomach [facility] [...] 1-14 l >2</sup> >2</sup> 06:00: Berto Freitas aspirin< aspirin< Active 2010-06 Memori a sup>3</s sup>3</s 1-14 l up> up> 06:00: Jorge Alberto Freitas Adhesive Adhesive Active 2010-06 Memori a Tape<sup Tape<sup 1-14 l >4</sup> >4</sup> 06:00: Berto gomez 00 PHENobar PHENobar Active 2010-06 Memori a bital<bahena bital<bahena 1-14 l p>5</sup p>5</sup 06:00: Berto n > > 00 Adhesive Adhesive Active 2010-06 Memori a [...] ciproflo Active Memori a xacin xacin l [place] heparin heparin Active Severe Memoria l Jorge Alberto cefepime cefepime Active Memori a l Jorge Alberto Cortizon Cortizon Active Memori a e-10 e-10 l [place] aspirin aspirin Active Memoria l Jorge Alberto erythrom erythrom Active Memori a ycin ycin l [place] penicill penicill Active Memori a ins ins l [place] Silk Silk Active Memoria Tape Tape l Jorge Alberto gabapent gabapent Active Memori a in<sup>3 in<sup>3 l </sup> </sup> Jorge Alberto immune immune Active Memoria globulin globulin l intraven intraven Berto n ous<sup> ous<sup> 5</sup> 5</sup> Social History Social Habit Start Date Stop Date Quantity Comments Source Sex Assigned At [facility] Social History 2018-09-08 2018-09-08 [facility] 11:17:00 11:17:00 Tobacco use and 2017-02-25 2017-02-25 Never used [facility] - exposure 00:00:00 00:00:00 [facility] Alcohol intake 2017-02-25 2017-02-25 Current [facility] - 00:00:00 00:00:00 non-drinker of Medical Ce nter alcohol (finding) Smoking Status Start Date Stop Date Source Never smoker [facility] Medications Ordered Filled Start Stop Current Ordering Indication Dosage Frequency Signature Comments Components Source Medication Medication Date Date Medication? Clinician (SIG) Name Name azaTHIOprin azaTHIOprin 2019-06 Yes SUUR 1 Q0.5D TAKE 1 [facility] e 50 MG e 50 MG 0-27 BILICILER TABLET it y of Oral Tablet Oral Tablet 00:00: M.D. TWICE [place] 00 DAILY Physici ans lansoprazol 2019-0 Yes 30 mg = 10 Memoria e 3 mg/mL 9- mL, PO, l oral 15:50: BID-Before Jorge Alberto suspension 00 Meals, # 600 mL, 0 Refill(s) pregabalin 2019-0 Yes 25 mg = 1 Me moria 25 mg oral 9 cap, PO, l capsule 15:45: Q8H-01, 0 Gerda nn 00 Refill(s) Sulfamethox 2020-0 No 1 tab, PO, Memoria azole 800 9- [id number], X l MG / 15:45: 1 day, # 2 [place] Trimethopri 00 tab, 0 m 160 MG Refill(s) Oral Tablet [Bactrim] predniSONE 2019-0 Yes 20 mg = 1 Me moria 20 mg oral 9-28 tab, PO, l tablet 15:45: Daily, X Jorge Alberto 00 21 day, # 21 tab, 0 Refill(s) Insulin 2019-0 Yes 20 unit, Memori a Glargine 02-26 SUB-Q, l 100 UNT/ML 15:45: BID, # 10 He rmann Injectable 00 mL, 0 Solution Refill(s) lisinopril 2019- Yes 5 mg = 1 Mem oria 5 mg oral 02-26 tab, GT, l tablet 15:17: Daily, 0 [place] 00 Refill(s) Sulfamethox 2020-0 No 1 tab, PO, Memoria azole 800 02-26 [id number], 0 l MG / 15:17: Refill(s) [place] Trimethopri 00 m 160 MG Oral Tablet [Bactrim] Insulin No 15 unit, Memori a Glargine 02-26 SUB-Q, l 100 UNT/ML 15:17: BID, 0 Gerda nn Injectable 00 Refill(s) Solution thiamine Yes 200 mg = 2 Mem oria 100 mg oral 02-26 tab, PO, l tablet 15:17: Daily, 0 Jorge Alberto 00 Refill(s) rosuvastati Yes 10 mg = 1 M emoria n 10 mg 02-26 tab, PO, l oral tablet 15:17: Bedtime, 0 [place] 00 Refill(s) predniSONE No 20 mg = 1 Me moria 20 mg oral 02-26 tab, PO, l tablet 15:17: Daily, 0 [place] 00 Refill(s) Calcium No 500 mL, Memoria Chloride 02-26 500 [...] l 02:00: heparin Jorge Alberto 00 heparin 2019-0 Yes Route: Memoria 02-24 MISC, Drug l 15:44: form: INJ, Jorge Alberto 00 ONCE, Dosing Weight 84.545, kg, Please have at bedside to pack catheter post apheresis procedure. , Start date: 02/25/20 10:44:00 CDT, Stop date: 02/25/20 10:44:00 CDT, 0 albumin 2019- No 2,500 mL, Memor ia human 5% 02-24 Route: IV, l intravenous 14:32: Dosing Herm mercy solution Weight 84.545, kg, ONCE, Start date: 02/25/20 9:32:00 CDT, Stop date: 02/25/20 9:32:00 CDT, Indication : Plasmapher esis Calcium 2019-0 No 2.5 gm, Memoria Gluconate 02-24 Route: IV, l 14:32: ONCE, [place] Dosing Weight 84.545, kg, Start date: 02/25/20 9:32:00 CDT, Stop date: 02/25/20 9:32:00 CDT Calcium 2019-0 No Notes: Memoria Gluconate 02-22 WASTE: F/P l 14:30: - Sink; E Jorge Alberto - Municipal Trash Bin albumin 2019-0 No Notes: Memoria human 5% 02-22 LOT#: l intravenous 14:08: Jorge Alberto solution 00 ___Mfg:___ ___ (Same as: Albuminar) "blood product derivative " WASTE: F/P - Red; E -Red MEDICATION WASTE Product Size: 25 gm Product Wasted: _0__ gm Sulfamethox 2019-0 No 1 tab, Kalia aida azole 800 02-22 Route: PO, l MG / 01:00: Drug Form: Jorge Alberto Trimethopri 00 TAB, m 160 MG Dosing Oral Tablet Weight [Bactrim] 84.545, kg, [id number], Start date: 02/22/20 20:00:00 CDT, Stop date: 02/28/20 8:00:00 CDT, 0 insulin 2019-0 No 30 unit, Memori a glargine 02-21 Route: l 14:00: SUB-Q, [place] Drug form: SOLN, BID, Start date: 02/22/20 [...] 0 Glucagon 2020-0 No 1 mg, Memoria 02-21 Route: IM, l 01:57: Drug form: [place] PDR/INJ, PRN, Dosing Weight 84.545, kg, PRN [...] human 5% 02-20 LOT#: l intravenous 16:23: [place] solution 00 ___Mfg:___ ___ (Same as: Albuminar) "blood product derivative " WASTE: F/P - Red; E -Red MEDICATION WASTE Product Size: 25 gm Product Wasted: _0__ gm Calcium No Notes: Soyoria Gluconate 02-20 WASTE: F/P l 12:00: - Sink; E [place] 00 - Municipal Trash Bin albumin No Notes: Feli human 5% 02-20 LOT#: l intravenous 11:45: Jorge Alberto solution 00 ___Mfg:___ ___ (Same as: Albuminar) "blood product derivative " WASTE: F/P - Red; E -Red MEDICATION WASTE Product Size: 25 gm Product Wasted: ___ gm Lyrica No Notes: Memoria 02-19 (Same as: l 15:07: Lyrica) [place] Os-Roger 500 No Notes: Memor ia 02-19 500mg l 15:00: elemental [place] calcium = 1250mg calcium carbonate. Contains 500mg [...] LOT#: l intravenous 17:05: Jorge Alberto solution 00 ___Mfg:___ ___ (Same as: Albuminar) "blood product derivative " WASTE: F/P - Red; E -Red MEDICATION WASTE Product Size: 25 gm Product Wasted: _0__ gm Diphenhydra No 50 mg, Kalia aida mine 02-18 Route: l 17:00: IVP, ONCE, [place] Dosing Weight 84.545, kg, Start date: 02/19/20 12:00:00 CDT, Stop date: 02/19/20 12:00:00 CDT Calcium No Notes: Memoria Gluconate 02-18 WASTE: F/P l 15:00: - Sink; E [place] - Municipal Trash Bin albumin No Notes: [...] 0.2 mL, l 22:00: Route: Jorge Alberto 00 SUB-Q, Drug form: SOLN, BID, Start date: 02/18/20 17:00:00 CDT, Duration: 30 day, Stop date: 03/19/20 9:00:00 CDT, 0 insulin 2019-0 No 15 unit, Memori a detemir 02-17 Route: l 21:06: SUB-Q, [place] 00 BID, Dosing Weight 84.545, kg, Start date: 02/18/20 16:06:00 CDT, Duration: 30 day, Stop date: 03/19/20 9:00:00 CDT Dextrose 2020-0 No 12.5 gm, Memor ia 50% Syringe 02-17 25 mL, l (D50W) 21:05: Route: [place] IVP, Drug Form: INJ, Dosing Weight 84.545, kg, PRN, PRN Blood Glucose Results, Start date: 02/18/20 16:05:00 CDT, Duration: 30 day, Stop date: 03/19/20 16:04:00 CDT, 0 Glucagon 2020-0 No 1 mg, Memoria 02-17 Route: IM, l 21:05: Drug form: [place] PDR/INJ, PRN, Dosing Weight 84.545, kg, PRN Blood Glucose Results, Start date: 02/18/20 16:05:00 CDT, Duration: 30 day, Stop date: 03/19/20 16:04:00 CDT, 0 Insulin 2020-0 No Notes: Memoria regular 02-17 (Same as: l 21:05: Humulin R) Roll in palms of hands gently; Do not shake vigorously . WASTE: F/P - Black; E - thesixtyone Trash Bin Stable for 31 days at room temperatur e Expires in days from ____Date Dextrose 2020-0 No 25 mL, Memoria 50% Syringe 02-17 Route: l (D50W) 11:26: IVP, [place] 00 Dosing Weight 84.545, kg, PRN, PRN [...] Memoria regular 02-17 Route: l 11:26: SUB-Q, [place] TID-Before Meals, Dosing Weight 84.545, kg, PRN [...] s with feeding tube less than 14 Somali (Dobhoff, J-tube etc) and pediatric and patients. Tylenol No Notes: Do Memor ia 02-16 not exceed l 22:08: 4 gm/day. [place] 00 (Same as: Tylenol) Calcium No Notes: Memoria Gluconate 02-16 WASTE: F/P l 22:00: - Sink; E [place] - Municipal Trash Bin albumin No Notes: Memoria human 5% 02-16 LOT#: l intravenous 21:47: [place] solution 00 ___Mfg:___ ___ (Same as: Albuminar) "blood product derivative " WASTE: F/P - Red; E -Red MEDICATION WASTE Product Size: 25 gm Product Wasted: ___ gm Pyridostigm No 90 mg, Kalia aida ine 02-16 Route: GT, l 21:00: Drug form: [place] 00 TAB, Q8H, Dosing Weight 84.545, kg, Start date: 02/17/20 16:00:00 CDT, Duration: 30 day, Stop date: 03/18/20 8:00:00 CDT, 0 Mestinon 0 No Notes: Memoria - (Same as: l 21:00: Mestinon) [place] 00 pyridostigm 2019-0 No Notes: Kalia aida ine 02-16 (Same as: l 21:00: Mestinon) Jorge Alberto 00 30 mg = 1/2 x 60 mg TAB clonazePAM No Notes: Memor ia 02-16 (Same as l 18:45: KlonoPIN [place] ODT) Hazardous Drug Group 3:Reproduc tive risk Hazardous Drug -- Refer to safe handling procedure PPE Matrix Clonazepam No Notes: Memor ia 02-16 (Same as l 17:27: KlonoPIN [place] ODT) Hazardous Drug Group 3:Reproduc tive risk Hazardous Drug -- Refer to safe handling procedure PPE Matrix Furosemide No Notes: Memor ia 20 MG Oral -18 (Same as: l Tablet 14:00: Lasix) May [...] this medication . (Same as:Synthro id) Dextrose 2019-0 No 12.5 gm, Memor ia 50% Syringe -18 25 mL, l (D50W) 05:59: Route: IVP, Drug Form: INJ, Dosing Weight 84.545, kg, PRN, PRN Blood Glucose Results, Start date: 02/17/20 0:59:00 CDT, Duration: 30 day, Stop date: 03/18/20 0:58:00 CDT, 0 Glucagon 2019-0 No 1 mg, Memoria -18 Route: IM, l 05:59: Drug form: PDR/INJ, PRN, Dosing Weight 84.545, kg, PRN Blood Glucose Results, Start date: 02/17/20 0:59:00 CDT, Duration: 30 day, Stop date: 03/18/20 0:58:00 CDT, 0 Insulin 2019-0 No Notes: Memoria Lispro -18 (Same as: [...] 02-15 (Same as: l 21:00: Mestinon) Prednisone 0 No Notes: Memor ia 02-15 Take with [...] 60 mg = 1 M emoria ine Lewis 02-15 tab, PO, l 60 MG Oral 17:29: TID, 0 Gerda nn Tablet Refill(s) [Mestinon] Clonazepam 0 No Notes: Memor [...] / 14:00: Senokot-S) sennosides, 00 Equiv. to RETIREMENT 8.6 MG Cassidy-Col[place] Oral Tablet e. Pyridostigm No Notes: Kalia aida ine 02-15 (Same as: l 14:00: Mestinon) Furosemide No Notes: Memor ia 20 MG Oral 02-15 (Same as: l Tablet 14:00: Lasix) May cause GI upset. Give with food or milk. Lisinopril No Notes: Memor ia 02-15 (Same as: l 14:00: Prinivil, Zestril) Sertraline No Notes: Memor ia 02-15 [...] Syringe [Levemir] Thyroxine No Notes: Memori a -17 Take 1 l 11:30: hour 00 before or 2 hours after meal; Enteral feeds may interefere with the absorption of this medication . (Same as:Synthro id) heparin No Notes: Memoria sodium, 02-15 porcine l porcine 05:00: heparin 2500 UNT/ML 00 Injectable Solution rosuvastati 2019-0 No Notes: Kalia aida n 02-15 (Same As: l 02:00: Crestor) Dextrose 2019-0 No 12.5 gm, Memor ia [...] e. Expires in days from ____Date Amlodipine 0 No Notes: Memor ia 02-15 (Same as: l 00:46: Norvasc) predniSONE 2019-0 Yes 20mg QD Take [facility] ([facility] 02-15 tablet (20 Ruby kes - 20 MG 00:00: mg total) Medical tablet 00 by mouth Center daily. predniSONE 2019-0 2019- No 20mg QD Take [address] [facility] [address] (DELTASONE) 02-15 tablet (20 L ukes - 20 MG [...] mouth [facility] - MG tablet 16:38: nightly. [facility] roger 36 Center amLODIPine 2020-0 Yes 5mg [...] 9-16 Units [facility] - (LANTUS 16:38: subcutaneo [facility] SOLOSTAR) 36 usly 2 Center 100 [...] MG tablet 00:00: nightly. Medi roger 00 [place] rosuvastati 2020-0 Yes 20mg QD Take [address] [facility] [facility] (CRESTOR) 8- by mouth [facility] - 20 MG 00:00: daily. Medical tablet 00 [place] Potassium 2020-0 Yes 10 mEq = 1 Me moria Chloride 10 7-20 tab, PO, l MEQ 20:22: Daily, # [place] Extended 00 30 tab, 0 Release Refill(s), Tablet other [Klor-Con] amLODIPine 2020-0 Yes 5 mg = 1 Mem oria 5 mg oral 7-20 tab, PO, l tablet 20:22: Daily, # [place] 00 30 tab, 0 Refill(s), Pharmacy: [id number], 149.86, cm, 12/06/19 15:12:00 CDT, [...] 7-20 mL, PO, l oral 20:22: BID-Before [place] suspension 00 Meals, # 600 mL, 0 [...] IV 7-20 25 mL, l 13:18: Route: [place] IVP, Drug Form: INJ, Dosing Weight 90, kg, PRN, PRN Blood Glucose Results, Start date: 12/19/19 8:18:00 CDT, Duration: 30 day, Stop date: 01/18/20 8:17:00 CDT, 0 Glucagon 2020-0 No 1 mg, Memoria 12-18 Route: IM, l 13:18: Drug form: [place] 00 PDR/INJ, PRN, Dosing Weight 90, kg, [...] 12-15 25 mL, l (D50W) 20:42: Route: [place] 00 IVP, Drug Form: INJ, Dosing Weight 90, kg, PRN, PRN Blood Glucose Results, Start date: 12/16/19 15:42:00 CDT, Duration: 30 day, Stop date: 01/15/20 15:41:00 CDT, 0 Glucagon 2019-0 No 1 mg, Memoria 12-15 Route: IM, l 20:42: Drug form: Jorge Alberto 00 PDR/INJ, PRN, [...] Chloride 7-16 (Same as: l 01:00: KCL) [place] 00 Infuse over 2 hours. Morphine No Notes: Memoria 7-15 (Same l 23:52: as:MORPhin [place] 00 e Sulfate) potassium No Notes: Memori [...] 7-14 (Same as: l 14:00: Humulin N) [place] 00 Roll in palms of hands gently; Do not shake vigorously . WASTE: F/P - Black; E - Municipal Trash Bin Stable for 31 days at room temperatur e Expires in days from ____Date lansoprazol No Notes: Kalia aida e 7-14 Take 1 l 12:30: hour [place] 00 before or 2 hours after meal; Expires in 14 days. Shake well before use. (Same as:Prevkathrine d) Compound ed Product - formulatio n [...] as: l / 21:35: Duoneb) Ipratropium 00 Lewis 0.167 MG/ML Inhalant Solution Furosemide No Notes: Memor ia 12-11 (Same as: l 19:00: Lasix) MEDICATION WASTE Product Size: 40 mg Product Wasted: ___ mg Potassium No Notes: Memori a Chloride 12-11 (Same as: l 13:51: Potassium Chloride) Furosemide No Notes: Memor ia 12-11 (Same as: l 13:02: Lasix) MEDICATION WASTE Product Size: 40 mg Product Wasted: ___ mg Lovenox No Notes: Memoria -12 (Same as: l 23:00: Lovenox) Magnesium No Notes: Memori a Sulfate 12-10 WASTE: F/P l 22:03: - Sink; E - Municipal Trash Bin potassium No Notes: Memori a phosphate 12-10 (Same as: l 22:02: K Phosphate. ) [...] (Same as: l 17:40: Ativan) Jorge Alberto Ofirmev No Notes: Memoria 7-12 Infuse l 17:00: over 15 minutes Do not exceed 4gm/day of acetaminop hen MEDICATION WASTE Product Size: 1000 mg Product Wasted: ___ mg Lidocaine No Notes: Memori a Hydrochlori -12 (Same as: l de 0.02 14:07: Xylocaine Gerda nn MG/MG 00 Jelly, Topical Gel Glydo) Morphine No Notes: Memoria 7-12 (Same l 14:06: as:MORPhin [place] 00 e Sulfate) Blistex No Notes: Memoria topical - Same as: l ointment 14:00: Blistex Berto [...] Lovenox) Lanolin No Notes: Memoria 0.157 MG/MG - [...] Memoria 7-11 (Same as: l 22:00: Lasix) [place] 00 May cause GI upset. Give with [...] 7-11 Route: IM, l 16:56: Drug form: [place] 00 PDR/INJ, PRN, Dosing Weight 90, kg, [...] Expires in days from ____Date Dextrose 5% 2020-0 No 1,000 mL, M emoria with 0.45% [...] Protonix) pantoprazol No Notes: For Memoria e 12-08 IV push l 17:40: reconstitu Jorge Alberto te with 10 ml 0.9% sodium chloride and push over 2 minutes. (Same as: Protonix) Acetaminoph No Notes: Do M emoria en 12-08 not exceed l 05:00: 4 gm/day. Jorge Alberto (Same as: Tylenol) Amlodipine No Notes: Memor [...] (Same as: l 12:51: Potassium Chloride) Lovenox 2019-0 No Notes: Memoria - (Same as: l 23:00: Lovenox) Lasix 2019-0 No Notes: Memoria - (Same as: l 20:35: Lasix) Tylenol No Notes: Do Memor ia 12-05 not exceed l 17:17: 4 gm/day. [place] 00 (Same as: Tylenol) Dextrose No 12.5 gm, Memor ia 50% Syringe 12-05 25 mL, l (D50W) 17:15: Route: [place] IVP, Drug Form: INJ, Dosing Weight 90, kg, PRN, PRN Blood Glucose Results, Start date: 12/06/19 12:15:00 CDT, Duration: 30 day, Stop date: 01/05/20 12:14:00 CDT, 0 Glucagon No 1 mg, Memoria 12-05 Route: IM, l 17:15: Drug form: [place] PDR/INJ, PRN, Dosing Weight 90, kg, PRN Blood Glucose Results, Start date: 12/06/19 12:15:00 CDT, Duration: 30 day, Stop date: 01/05/20 12:14:00 CDT, 0 Insulin 2019- No Notes: Memoria regular 12-05 (Same as: l 17:15: Humulin R) Roll in palms of hands gently; Do not shake vigorously . WASTE: F/P - Black; E - Municipal Trash Bin Stable for 31 days at room temperatur e Expires in days from ____Date Famotidine 2019-0 No Notes: Memor ia 20 MG Oral 12-05 (Same as: l Tablet 17:10: Pepcid) Jorge Alberto [Pepcid] 00 chlorhexidi No Notes: Kalia aida ne 12-05 (Same As: l gluconate 14:00: Peridex) Herm mercy 1.2 MG/ML 00 Mouthwash ocular No Notes: Memoria lubricant 12-05 (Same as: l 11:00: Lacri-Lube [place] 00 , Puralube, Duratears Naturale, Artificial Tears, and Tears Again ) chlorhexidi 2020-0 No Notes: Kalia aida ne 12-05 (Same As: l gluconate 05:13: Peridex) Herm mercy 1.2 MG/ML 00 Mouthwash Hydrocortis 2020-0 No Notes: Kalia aida one 12-05 (Same as: l 05:00: Solu-BERKLEY [place] 00 F) Neurontin 2020-0 No Notes: Memori a 12-05 (Same as: l 02:00: Neurontin) NS 1,000 mL 2020-0 No 1,000 mL, M emoria 12-05 Rate: 40 l 01:50: ml/hr, Infuse over: 25 hr, Route: IV, Dosing Weight 90 kg, Total Volume: 1,000, Start date: 12/05/19 20:50:00 CDT, Duration: 30 day, Stop date: 01/04/20 20:49:00 CDT, 1.98, m2, 0 Baclofen 2020-0 No 5 mg, 1 Memori a 12-05 tab, l 01:45: Route: GT, Drug form: TAB, Q8H, Dosing Weight 90, kg, PRN Muscle Spasms, Start date: 12/05/19 20:45:00 CDT, Duration: 30 day, Stop date: 01/04/20 20:44:00 CDT, 0 Tramadol 2020-0 No Notes: Not Mem oria 12-05 to exceed l 01:45: 400mg/day. (Same As: Ultram) Fentanyl 2019-0 No Notes: Memoria 12-05 (Same as: l 01:45: Sublimaze) Preservat kimberly free. Vancomycin 2020-0 No 2000 mg: Me moria 12-04 infuse l 23:00: over 2.5 hours For adult patients only: Round to nearest 250 mg per Medical Staff approval MEDICATION WASTE Product Size: 1000 mg Product Wasted: ___ mg Hydralazine 2020-0 No Notes: Kalia aida 12-04 (Same as: l 22:22: Apresoline ) Push over 5 minutes Labetalol 2020-0 No 10 mg, 2 Kalia aida 7- mL, Route: l 22:22: IVP, Drug form: [...] being intubated (unless the nurse is a MATHEMATICAL ENGINEERING TECHNICIAN). Same as: Diprivan norepinephr No Route: IV, Memoria ine (ANES) 12-04 Drug form: l 10 20:20: INJ, Start [place] date: 12/05/19 15:20:00 CDT, Stop date: 12/05/19 16:20:00 CDT norepinephr No Route: IV, Memoria ine (ANES) 12-04 Drug form: l 20:10: INJ, ONCE, [place] Stop date: 12/05/19 15:10:00 CDT Insulin 2020-0 [...] Drug form: l 100 15:46: INJ, Start [place] microgram 00 date: 12/05/19 10:46:00 CDT, Stop date: 12/05/19 11:46:00 CDT lidocaine 2020-0 No Route: IV, Me moria (ANES) 12-04 Drug form: l 15:35: INJ, ONCE, [place] 00 Stop date: 12/05/19 10:35:00 CDT phenylephri 2020-0 No Route: IV, Memoria ne (ANES) 12-04 Drug form: l 15:25: INJ, ONCE, [place] Stop date: 12/05/19 10:25:00 CDT propofol 2020-0 No Route: IV, Mem oria (ANES) 12-04 Drug form: l 14:44: INJ, ONCE, [place] 00 Stop date: 12/05/19 9:44:00 CDT succinylcho 2020-0 No Route: IV, Memoria line (ANES) 12-04 Drug form: l 14:44: INJ, ONCE, [place] Stop date: 12/05/19 9:44:00 CDT fentaNYL 2020-0 No Route: IV, Mem oria (ANES) 12-04 Drug form: l 14:44: INJ, ONCE, [place] 00 Stop date: 12/05/19 9:44:00 CDT dexamethaso 2020-0 No Route: IV, Memoria ne (ANES) 12-04 Drug form: l 14:39: INJ, ONCE, Jorge Alberto 00 Stop date: 12/05/19 9:39:00 CDT ePHEDrine 2019-0 No Route: IV, moria (ANES) 7 Drug form: l 13:58: INJ, ONCE, Jorge Alberto 00 Stop date: 12/05/19 8:58:00 CDT Sodium 2019-0 No Route: IV, Memor ia Chloride 12-04 Total l 0.9% IV 13:55: Volume: Jorge Alberto (ANES) 500 00 500, Start mL date: 12/05/19 8:55:00 CDT, Stop date: 12/05/19 9:55:00 CDT propofol 2019-0 No Route: IV, Mem oria (ANES) 10 12-04 Drug form: l mg 13:55: INJ, Start [place] 00 date: 12/05/19 8:55:00 CDT, Stop date: 12/05/19 9:55:00 CDT SUFentanil 2019-0 No Route: IV, Natasha de la fuente (ANES) 50 12-04 Drug form: l microgram 13:55: INJ, Start He rm date: 12/05/19 8:55:00 CDT, Stop date: 12/05/19 9:55:00 CDT Sodium 2019-0 No Route: IV, Memor ia Chloride 12-04 Drug form: l 0.9% IV 13:45: INJ, Start Herm mercy (ANES) 235 00 date: mL + 12/05/19 vancomycin 8:45:00 (ANES) 1500 CDT, Stop mg date: 12/05/19 9:45:00 CDT Isolyte S 2020-0 No Route: IV, moria PH 7.4 12-04 Total l (ANES) 1000 13:08: Volume: Her restreop mL 00 1,000, Start date: 12/05/19 8:08:00 CDT, Stop date: 12/05/19 9:08:00 CDT Albuterol 2019-0 No Notes: Memori a 0.833 MG/ML 12-04 (Same as: l / 13:00: Duoneb) Jorge Alberto Ipratropium 00 Lewis 0.167 MG/ML Inhalant Solution Humalog 2020-0 No Notes: Memoria 7- (Same as: l 21:30: Humalog) Jorge Alberto 00 Roll in palms [...] (Same as: l 23:26: Humalog) Jorge Alberto 00 Roll in palms [...] Memori a 7- Route: l 02:00: SUB-Q, Jorge Alberto 00 Bedtime, Dosing Weight 90, kg, Start date: 12/01/19 21:00:00 CDT, Duration: 30 day, Stop date: 12/30/19 21:00:00 CDT Dextrose 2020-0 No 12.5 gm, Memor ia 50% Syringe 7 25 mL, l (D50W) 18:30: Route: [place] 00 IVP, Drug Form: INJ, Dosing Weight [...] Stop date: 12/29/19 21:46:00 CDT, 0 Insulin 2019- No Notes: Memoria Lispro 7-01 (Same as: [...] 0.9% 6-30 (Same as: l 21:00: BD Jorge Alberto Posiflush) Saline No Notes: Memoria Flush 0.9% 6-30 (Same as: l 20:21: BD [place] Posiflush) Dextrose 5% No 1,000 mL, M [...] Tablet 00 sennosides, No Notes: Kalia aida RETIREMENT 6-27 (Same as: l 02:00: Senokot) Jorge [...] Notes: Memoria 11-24 (Same l 14:00: as:Altace) [place] Oxycodone 2019-0 No Notes: Memori a Hydrochlori 11-24 (Same as: l de 1 MG/ML 12:15: 'Roxicodon H ermann Oral 00 e) Solution rosuvastati 2019-0 No Notes: Kalia aida n 11-24 (Same As: l 02:00: Crestor) [place] 00 Acetaminoph 2020-0 Yes 650 mg = 2 Memoria en 325 MG 6-25 tab, PO, l Oral Tablet 17:08: PRN, 0 Herm mercy [Tylenol] 00 Refill(s) clonazePAM 2020-0 Yes 0.5 mg = 1 M emoria 0.5 mg oral 6-25 tab, PO, l tablet 17:08: BID, 0 [place] 00 Refill(s) sertraline 2020-0 Yes 25 mg [...] 6-25 PO, BID, 0 l 17:08: Refill(s) [place] 00 3 ML 2020-0 No 10 unit, [...] 6-24 (Same as: l 23:05: Humulin R) [place] Roll in palms of hands gently; Do not shake vigorously . WASTE: F/P - Black; E - thesixtyone Trash Bin Stable for 31 days at room temperatur e Expires in days from ____Date Dextrose 2019-0 No 12.5 gm, Memor ia 50% Syringe 24 25 mL, l (D50W) 22:47: Route: [place] 00 IVP, Drug Form: INJ, Dosing Weight 90, kg, PRN, PRN Blood Glucose Results, Start date: 11/23/19 17:47:00 CDT, Duration: 30 day, Stop date: 12/23/19 17:46:00 CDT, 0 Glucagon 2020-0 No 1 mg, Memoria 6-24 Route: IM, l 22:47: Drug form: Jorge Alberto PDR/INJ, PRN, Dosing Weight 90, kg, PRN Blood Glucose Results, Start date: 11/23/19 17:47:00 CDT, Duration: 30 day, Stop date: 12/23/19 17:46:00 CDT, 0 Insulin 2019-0 No Notes: Memoria regular 24 (Same as: l 22:47: Humulin R) Roll in palms of hands gently; Do not shake vigorously . WASTE: F/P - Black; E - Municipal Trash Bin Stable for 31 days at room temperatur e Expires in days from ____Date gabapentin No Notes: Memor ia 11-22 (Same as: l 21:00: Neurontin) Lovenox No [...] CDT, Stop date: 11/23/19 10:35:00 CDT normal 2019- No 1,000 mL, Memori a saline 0.9% [...] Not Crush) sennosides, No Notes: Kalia aida RETIREMENT 6-24 (Same as: l 12:53: Senokot) Albuterol No Notes: Memori a 0.833 MG/ML 11-22 (Same as: l / 11:46: Duoneb) Ipratropium 00 Lewis 0.167 MG/ML Inhalant Solution Synthroid No Notes: Memori a 6-24 Take 1 l 11:30: hour 00 before or 2 hours after meal; Enteral feeds may interefere with the absorption of this medication . (Same as:Synthro id) remove No Notes: Memoria patch -24 Remove l 10:00: patch 12 [place] 00 hours after applicatio n each day. Pyridostigm No Notes: Kalia aida ine -24 (Same as: l 05:00: Mestinon) Amlodipine No Notes: Memor ia 6-24 (Same as: l 04:45: Norvasc) Enoxaparin No Notes: Memor ia -23 (Same as: l 22:00: Lovenox) Lidocaine No [...] 6-23 25 mL, l (D50W) 21:16: Route: [place] 00 IVP, Drug Form: INJ, Dosing Weight 100, kg, PRN, PRN Blood Glucose Results, Start date: 11/22/19 16:16:00 CDT, Duration: 30 day, Stop date: 12/22/19 16:15:00 CDT, 0 Glucagon No 1 mg, Memoria 6- Route: IM, l 21:16: Drug form: Jorge [...] oria 6-23 to exceed l 21:10: 400mg/day. Jorge Alberto 00 (Same As: Ultram) Saline No Notes: Memoria [...] MEQ/ML 11/22/19 Injectable 11:17:00 Solution CDT Iohexol 2020-0 No 150 mL, Memoria 11-21 Route: l 14:50: IVP, Drug Form: SOLN, Dosing Weight 100, kg, ONCALL, STAT, Start date: 11/22/19 9:50:00 CDT, Duration: 1 doses or times, Dose = 2.2ml/kg, Max dose = 150ml -- "To be infused by Radiology Staff ONLY" Fentanyl No Notes: Memoria 11-21 (Same as: l 12:54: Sublimaze) Preservat kimberly free. Calcium 2020-0 No 1,000 mL, Memor ia Chloride 11-21 Infuse l 0.0014 12:32: Over: 1 [place] MEQ/ML / 00 hr, Route: Potassium IV, [...] PO, l oral tablet 21:12: Bedtime, # [place] 17 180 tab, 3 Refill(s) amLODIPine 2018-06 Yes 10 mg, PO, M emoria 10 mg oral 0-04 Daily, # l tablet 21:09: 30 tab, 0 Berto n 00 Refill(s) Ergocalcife 2018-06 Yes 50,000 Kalia aida rol 90751 0-04 IntlUnit = l UNT Oral 21:09: [...] tab, PO, l Tablet 21:09: Daily, # [place] [Lasix] 00 30 tab, 0 Refill(s) Insulin 2018-06 Yes 15 unit, Memori a Glargine 0-04 SUB-Q, l 100 UNT/ML 21:09: Daily, # Her restrepo Injectable 00 15 mL, 0 Solution Refill(s) [Lantus] linezolid 2018-06 Yes 600 mg = 1 Me moria 600 mg oral 0-04 tab, PO, l tablet 21:09: [id number], X Gerda nn 00 7 day, # 14 tab, 0 Refill(s) meclizine 2018-06 Yes 12.5 mg = Mem oria 12.5 mg 0-04 1 tab, PO, l oral tablet 21:09: TID, PRN He rmann 00 Dizziness, X 7 day, # 100 tab, 0 Refill(s) melatonin 3 2018-06 Yes 6 mg = 2 Me moria mg oral 0-04 tab, PO, l tablet 21:09: Bedtime, [place] 00 PRN Sleep, X 30 day, # [...] 2 tab, PO, Memoria azole 800 0-04 [id number], X l MG / 21:09: 7 day, # [place] Trimethopri 00 28 tab, 0 m 160 [...] oral 0-04 tab, PO, l tablet 18:44: [id number], 0 Gerda nn 00 Refill(s) meclizine 2018-06 [...] 2 tab, PO, Memoria azole 800 0-04 [id number], 0 l MG / 18:44: Refill(s) Jorge Alberto Trimethopri 00 m 160 MG Oral Tablet [Bactrim] Acetaminoph 2018-06 No 650 mg = 2 Memoria en 325 MG 0-04 tab, PO, l Oral Tablet 18:44: Q6H, PRN He rm 00 Pain Score 7-10, 0 Refill(s) Ergocalcife 2018-06 No 50,000 Kalia aida rol [id number] 0-04 IntlUnit = l UNT Oral 18:44: 1 cap, PO, Her restrepo Capsule 00 Q7D, 0 Refill(s) Famotidine 2018-06 No 20 mg = 1 Me moria 20 MG Oral 0-04 tab, PO, l Tablet 18:44: Daily, 0 [place] 00 Refill(s) Hydroxyzine 2018-06 No 25 mg = 1 M emoria Hydrochlori 0-04 cap, PO, l de 25 MG 18:44: QID, PRN Gerda nn Oral 00 Anxiety, 0 Capsule Refill(s) predniSONE 2018-06 No 25 mg = 5 Me moria 5 mg oral 0-04 tab, PO, l tablet 18:44: Daily, 0 [place] 00 Refill(s) Flagyl 2018-06 No 500 mg, 1 Memori a 0-04 tab, l 14:00: Route: PO, [place] 00 Drug form: TAB, [id number], Dosing Weight [...] oria 02-26 tab, l 22:00: Route: PO, [place] 00 Drug form: TAB, [id number], Dosing Weight 90.909, kg, Start date: 02/26/19 17:00:00 CDT, Duration: 10 day, Stop date: 03/08/19 8:00:00 CDT, ABX Indication : Skin/Soft Tissue Infection, 0 Sulfamethox 0 No 2 tab, Kalia aida azole 800 02-26 Route: PO, l MG / 22:00: Drug Form: Jorge Alberto Trimethopri 00 TAB, m 160 MG Dosing Oral Tablet Weight [Bactrim] 90.909, kg, [id number], Start date: 02/26/19 17:00:00 CDT, Duration: 10 [...] ONCE, Stop date: 02/26/19 12:48:00 CDT propofol No Route: IV, Mem oria (ANES) 02-26 Drug form: l 17:48: INJ, ONCE, Stop date: 02/26/19 12:48:00 CDT fentaNYL No Route: IV, Mem oria (ANES) 02-26 Drug form: l 17:48: INJ, ONCE, Stop date: 02/26/19 12:48:00 CDT phenylephri No Route: IV, Memoria ne (ANES) 02-26 Drug form: l 17:48: INJ, ONCE, Stop date: 02/26/19 12:48:00 CDT ePHEDrine No Route: IV, Me moria (ANES) 02-26 Drug form: l 17:48: INJ, ONCE, Stop date: 02/26/19 12:48:00 CDT Hydralazine No 10 mg, Kalia aida 02-26 Route: l 17:36: IVP, [place] 00 Q20Min, Dosing Weight 90.909, kg, PRN [...] 02-23 Route: PO, l 04:53: Drug form: [place] 00 TAB, ONCE, Dosing Weight 90.909, kg, [...] aida 02-23 Route: l 04:53: IVP, PRN, [place] 00 Dosing Weight 90.909, kg, PRN Benzodiaze [...] Memoria regular 02-23 Route: l 04:53: SUB-Q, [place] Sliding Scale, Dosing Weight 90.909, kg, PRN [...] 02-22 Take with l 14:00: food. Saline No 10 mL, Memoria Flush 0.9% [...] day, Stop date: 03/23/19 14:41:00 CDT Lidocaine No 5 mL, Memoria Hydrochlori 9- Route: l de 10 MG/ML 19:00: INTRADERM, Jorge Alberto Injectable 00 Dosing Solution [...] l de 20 MG/ML 18:20: TOP, ONCE, [place] Topical 00 Start [place] date: 02/21/19 13:20:00 CDT, Stop date: 02/21/19 13:20:00 CDT Lidocaine No Notes: Memori a Hydrochlori 9-23 (Same as: l de 10 MG/ML 17:00: Xylocaine) Jorge Alberto Injectable 00 Solution Saline No 10 mL, Memoria Flush 0.9% 9- Route: l 16:54: IVP, Drug [place] 00 Form: INJ, Dosing Weight 90.909, kg, [...] 02-20 (Same as: l 12:25: Humulin N) [place] 00 Roll in palms of hands gently; [...] 02-19 (Same as: l 23:20: Humulin N) Jorge Alberto 00 Roll in palms of hands gently; Do not shake vigorously . WASTE: F/P - Black; E - Municipal Trash Bin Stable for 31 days at room temperatur e Expires in days from ____Date insulin, No Notes: Memoria isophane 02-19 (Same as: l 17:42: Humulin N) [place] 00 Roll in palms of hands gently; [...] detemir 02-18 Non-Formul l 14:00: jordi Drug [place] 00 (Same as Levemir) "Single Patient Use [...] s with feeding tube less than 14 Somali (Dobhoff, J-tube etc) and pediatric and patients. [...] detemir 02-17 Non-Formul l 22:00: jordi Drug [place] 00 (Same as Levemir) "Single Patient Use [...] Memoria 02-14 Non-Formul l 14:00: jordi Drug (Same as Levemir) "Single Patient Use Only" Do not hold insulin without contacting prescriber WASTE: F/P - Black; E - Municipal Trash Bin Stable for 42 days at room temperatur e Expires in days from ____Date Humalog No Notes: Memoria 02-14 (Same as: l 12:30: Humalog) [place] 00 Roll in palms of hands gently; Do not shake vigorously . WASTE: F/P - Black; E - Municipal Trash Bin Stable for 28 days at room temperatur e. Expires in days from ____Date Hydralazine No Notes: Kalia aida Hydrochlori 02-14 (Same as: l de 25 MG 07:39: Apresoline Her restrepo Oral Tablet 00 ) May interfere w/enteral feedings Take With Food. Merrem 0 No Notes: Memoria 02-14 Same as l 07:00: Merrem [place] 00 MEDICATION WASTE Product Size: 500 mg [...] 25 mL, l 01:33: Route: Jorge Alberto IVP, Drug Form: INJ, [...] CDT Glucagon 2019-0 No 1 mg, Memoria - Route: IM, l 01:32: PRN, Dosing Weight 90.909, kg, PRN Blood Glucose Results, Start date: 02/13/19 20:32:00 CDT, Duration: 30 day, Stop date: 03/15/19 20:31:00 CDT Insulin 2019-0 No 2 unit, Memoria regular 02-14 Route: l 01:32: SUB-Q, [place] 00 TID-Before Meals, Dosing Weight 90.909, kg, PRN Blood Glucose Results, Start date: 02/13/19 20:32:00 CDT, Duration: 30 day, Stop date: 03/15/19 20:31:00 CDT Morphine No Notes: Memoria 9-15 (Same l 22:52: as:MORPhin [place] 00 e Sulfate) Insulin No Notes: Memoria Lispro 9-15 (Same as: l 04:38: Humalog) Jorge Alberto 00 Roll in palms of hands gently; Do not shake vigorously . WASTE: F/P - Black; E - Municipal Trash Bin Stable for 28 days at room temperatur e. Expires in days from ____Date Saline No Notes: Memoria Flush 0.9% 9-14 (Same as: l 21:00: BD [place] Posiflush) Ativan No Notes: Memoria 9-14 (Same [...] 0.9% 9-14 (Same as: l 16:23: BD [place] Posiflush) Morphine No Notes: Memoria 9-14 (Same l 16:12: as:MORPhin [place] 00 e Sulfate) Isolyte S No Notes: Memori a PH 7.4 9-14 (Same as: l 06:30: Isolyte S Jorge Alberto 00 PH 7.4) Isolyte S No Notes: Memori a PH-7.4 9-14 (Same as: l (Bolus) IV 03:53: Isolyte S He rmann PH7.4) Ativan No Notes: Memoria 9-13 (Same as: l 22:10: Ativan) Ativan No 1 mg, Memoria 9- Route: IV, l 22:08: ONCE, Dosing Weight 90.909, kg, Start date: 02/11/19 17:08:00 CDT, Stop date: 02/11/19 17:08:00 CDT Morphine No Notes: Memoria 9-13 (Same l 22:08: as:MORPhin e Sulfate) Sertraline No Notes: Memor ia -13 (Same as: l 14:00: Zoloft) Insulin No Notes: Memoria Lispro -13 (Same as: l 04:10: Humalog) Roll in [...] moria 02-10 infuse l 17:00: over 2.5 [place] 00 hours Levemir No Notes: Memoria 9-11 [...] Skin/Soft Tissue Infection Merrem No Notes: Memoria 11 Same as l 13:00: Merrem MEDICATION WASTE [...] Memoria 9-10 (Same as: l 12:30: Humalog) [place] 00 Roll in palms of hands gently; Do not shake vigorously . WASTE: F/P - Black; E - Municipal Trash Bin Stable for 28 days at room temperatur e. Expires in days from ____Date Dextrose 2018-0 No 12.5 gm, Memor ia 50% Syringe - 25 mL, l 06:33: Route: [place] 00 IVP, Drug Form: INJ, Dosing Weight 90.909, kg, PRN, PRN Blood Glucose Results, Start date: 02/08/19 1:33:00 CDT, Duration: 30 day, Stop date: 03/10/19 1:32:00 CDT, 0 Glucagon No 1 mg, Memoria 9- Route: IM, l 06:33: Drug form: [place] 00 PDR/INJ, PRN, Dosing Weight 90.909, kg, PRN Blood Glucose Results, Start date: 02/08/19 1:33:00 CDT, Duration: 30 day, Stop date: 03/10/19 1:32:00 CDT, 0 Insulin No Notes: Memoria Lispro 9-10 (Same as: l 06:33: Humalog) [place] 00 Roll in palms of hands gently; [...] Expires in days from ____Date NS (Bolus) 2019-0 No 500 mL, Kalia adia IV 9-10 500 ml/hr, l 03:50: Infuse Jorge Alberto 00 Over: 1 hr, Route: IV, ONCE, Priority: STAT, Dosing Weight 90.909 kg, Start date: 02/07/19 22:50:00 CDT, Stop date: 02/07/19 22:50:00 CDT normal 2019-0 No 1,000 mL, Memori a saline 0.9% 9-10 Rate: 75 l IV 1,000 mL 03:50: ml/hr, Herm mercy Infuse over: 13.3 hr, Route: IV, Dosing Weight 90.909 kg, Total Volume: 1,000, Start date: 02/07/19 22:50:00 CDT, Duration: 30 day, Stop date: 03/09/19 22:49:00 CDT, 1.99, m2, 0 remove No 1 patch, Memoria patch 9-10 Route: l 02:00: TOP, Jorge Alberto 00 [...] 9-10 Roll in l 00:08: palms of [place] 00 hands gently; do not shake vigorously . (Same as: Humalog) WASTE: F/P - Black; E - Municipal Trash Bin Stable for 28 days at room temperatur e. Expires in days from Insulin 2019-0 No 10 unit, Memori a regular 02-07 Route: l 22:12: SUB-Q, [place] 00 ONCE, Dosing Weight 90.909, kg, Start date: 02/07/19 17:12:00 CDT, Stop date: 02/07/19 17:12:00 CDT Lidocaine 2018-0 No 1 patch, Kalia aida 0.05 MG/MG 02-07 Route: l Transdermal 19:00: TOP, Berto n Patch 00 Daily, Drug form: FILM, Start date: 02/07/19 14:00:00 CDT, Duration: 30 day, Stop date: 03/09/19 9:00:00 CDT, 0 Ergocalcife No 50,000 Kalia aida rol [id number] 02-07 IntlUnit, l UNT Oral 18:16: 1 cap, Jorge Alberto Capsule 00 Route: PO, Drug form: CAP, Q7D, Dosing Weight 90.909, kg, Start date: 02/07/19 13:16:00 CDT, Duration: 30 day, Stop date: 04/04/19 9:00:00 CONTROL MANAGER, 0 Ativan No Notes: Memoria 02-07 (Same as: l [...] 02-06 Route: IM, l 16:07: Drug form: [place] INJ, BID, Dosing Weight 90.909, kg, PRN [...] 02-06 not exceed l 02:45: 4 gm/day. [place] (Same as: Tylenol) Isolyte S No Notes: [...] Stop date: 03/07/19 16:38:00 CDT, 0 Glucagon 2018- No 1 mg, Memoria 02-05 Route: IM, l 21:39: Drug form: PDR/INJ, PRN, Dosing Weight 90.909, kg, PRN Blood Glucose Results, Start date: 02/05/19 16:39:00 CDT, Duration: 30 day, Stop date: 03/07/19 16:38:00 CDT, 0 Insulin 2018- No Notes: Memoria regular 02-05 (Same as: l 21:39: Humulin R) Roll in palms of hands gently; Do not shake vigorously . WASTE: F/P - Black; E - the[place] Trash Bin Stable for 31 days at room temperatur e Expires in days from ____Date Mestinon 2018-0 No Notes: Memoria 02-05 (Same as: l 21:00: Mestinon) Prednisone 2018- No 30 mg, 3 Mem oria 02-05 tab, l 19:40: Route: PO, Drug form: TAB, Daily, Dosing Weight 90.909, kg, Priority: NOW, Start date: 02/05/19 14:40:00 CDT, Duration: 30 day, Stop date: 03/07/19 9:00:00 CDT, 0 insulin 2019- Yes 12 unit, Memori a lispro 100 8-12 SUB-Q, l units/mL 19:35: TID-Before Her restrepo injectable 00 Meals, 0 solution Refill(s) Insulin 2018- Yes 34 unit, Memori a Glargine 8-12 SUB-Q, l 100 UNT/ML 12:01: Daily, 0 Her restrepo Injectable 00 Refill(s) Solution [Lantus] Furosemide 2018- Yes 40 mg = 1 Me moria 40 MG Oral 8-12 tab, PO, l Tablet 12:01: BID Jorge Alberto [Lasix] Diuretic, 0 Refill(s) Furosemide No Notes: Memor ia 40 MG Oral 8-12 (Same as: l Tablet 11:00: Lasix) Jorge Alberto [Lasix] 00 May cause GI upset. Give with food or milk. Furosemide No Notes: Memor ia 8-10 (Same as: l 11:00: Lasix) [place] 00 MEDICATION WASTE Product Size: 40 mg Product Wasted: ___ mg Sodium No Notes: SEE Memor ia Chloride 3% 01-07 RT l inhalation 01:37: DOCUMENTAT H ermann solution 00 ION (Same as: Hypertonic Saline 3%, Inhalation ) Furosemide No Notes: Memor ia 07 (Same as: l 16:00: Lasix) MEDICATION WASTE [...] or milk. Amlodipine No Notes: Memor ia -04 (Same as: l 22:00: Norvasc) Ramipril No [...] No 36 unit, Memori a detemir 100 8-03 SUB-Q, l UNT/ML 14:29: BID, # 30 Berto n Injectable 00 mL, 0 Solution Refill(s), [Levemir] other albumin No Notes: Feli human 5% 01-01 LOT#: l intravenous 14:27: Jorge Alberto solution 00 ___Mfg:___ ___ (Same as: Albuminar) "blood product derivative " WASTE: F/P - Red; E -Red MEDICATION WASTE Product Size: 25 gm Product Wasted: ___ gm Prednisone No Notes: Soyor ia 01-01 Take with l 14:00: food. [place] 00 Insulin No 34 unit, Memori a [...] in days from ____Date Calcium No Notes: Soycarroll Gluconate 12-30 WASTE: F/P l 15:00: - Sink; E Jorge Alberto 00 - Municipal Trash Bin albumin No Notes: Feli human 5% 12-30 LOT#: l intravenous 14:34: [place] solution 00 ___Mfg:___ ___ (Same as: Albuminar) "blood product derivative " WASTE: F/P - Red; E -Red MEDICATION WASTE Product Size: 25 gm Product Wasted: _0__ gm Thyroxine No Notes: Soyori a 12-30 Take 1 l 11:30: hour [place] 00 before or 2 hours after meal; Enteral feeds may interefere with the absorption of this medication . (Same as:Synthro id) insulin, No Notes: Memoria isophane 12-30 (Same as: l 08:00: Humulin N) Roll in palms of hands gently; Do not shake vigorously . WASTE: F/P - Black; E - Municipal Trash Bin Stable for 31 days at room temperatur e Expires in days from ____Date Benzocaine No 1 appl, Kaila aida 0.1 MG/MG 12-30 Route: l Topical 05:39: TOP, PRN, Gerda nn Ointment Drug form: OINT, PRN Pain Score 1-3, Start date: 12/30/18 0:39:00 CDT, Duration: 30 day, Stop date: 01/29/19 0:38:00 CDT phenol No Notes: Memoria 12-30 Chlorasept l 05:37: ic [place] (Same as: Chlorasept ic, Sore Throat [place]) WASTE: F/P - Black; E - Municipal [...] ia isophane 7-31 Route: l 16:00: SUB-Q, [place] 00 Q24H, Dosing Weight 92, kg, Start [...] Not Crush) sennosides, No Notes: Kalia aida RETIREMENT 8.6 MG 7-31 (Same as: l Oral Tablet 14:00: Senokot) rmann Prednisone No Notes: Memor ia 7-31 [...] sodium, 12-27 porcine l porcine 21:00: heparin [place] 2500 UNT/ML 00 Injectable Solution Dextrose No 12.5 gm, Memor ia 50% Syringe 12-27 25 mL, l 20:14: Route: Jorge Alberto 00 IVP, Drug Form: INJ, Dosing Weight 92, kg, PRN, PRN Blood Glucose Results, Start date: 12/27/18 15:14:00 CDT, Duration: 30 day, Stop date: 01/26/19 15:13:00 CDT, 0 Glucagon No 1 mg, Memoria 12-27 Route: IM, l 20:14: Drug form: [place] 00 PDR/INJ, PRN, Dosing Weight 92, kg, PRN Blood Glucose Results, Start date: 12/27/18 15:14:00 CDT, Duration: 30 day, Stop date: 01/26/19 15:13:00 CDT, 0 Insulin No Notes: Memoria regular 12-27 (Same as: l 20:14: Humulin R) [place] 00 Roll in palms of hands gently; Do not shake vigorously . WASTE: F/P - Black; E - Municipal Trash Bin Stable for 31 days at room temperatur e Expires in days from ____Date insulin, No Notes: Memoria isophane 12-27 (Same as: l 14:44: Humulin N) [place] 00 Roll in palms of hands gently; Do not shake vigorously . WASTE: F/P - Black; E - Municipal Trash Bin Stable for 31 days at room temperatur e Expires in days from ____Date Zithromax No Notes: Memori a 250 mg oral 12-27 Take 1 l tablet 14:00: hour [place] 00 before or 2 hours after meals. (Same As: Zithromax) Lanolin No Notes: Memoria 0.157 MG/MG 12-27 (Same as: l / Menthol 05:46: Calmosepti rmann 0.0044 00 ne) MG/MG / Petrolatum 0.24 MG/MG / Zinc Oxide 0.206 MG/MG Topical Ointment Famotidine No Notes: Memor ia 12-27 (Same as: l 03:00: Pepcid) [place] 00 Midodrine No Notes: Memori a 12-26 (Same l 22:00: as:Proamat [place] 00 ine) albumin No Notes: Memoria human 5% 12-26 LOT#: l intravenous 14:08: [place] solution 00 ___ Mfg: WASTE: F/P - Red; E -Red (Same as: Albuminar) "blood product derivative " Midodrine No Notes: Memori a 12-26 (Same l 14:00: as:Proamat [place] 00 ine) azithromyci No Notes: Kalia aida n 500 mg 12-26 Take 1 l oral tablet 14:00: hour Berto n 00 before or 2 hours after meals. (Same As: Zithromax) Calcium No 3 gm, Memoria Gluconate 12-26 Route: IV, l 14:00: Continuous [place] , Dosing Weight 92, kg, Start date: 12/26/18 9:00:00 CDT, Duration: 30 day, Stop date: 01/25/19 8:59:00 CDT albumin No 2.25 Memoria human 5% 12-26 Liter, l intravenous 13:41: Route: IV, [place] solution 00 Dosing Weight 92, kg, ONCE, Start date: 12/26/18 8:41:00 CDT, Stop date: 12/26/18 8:41:00 CDT, Indication : Plasmapher esis Norepinephr No Notes: Not Memoria ine 12-26 for direct l 02:03: administra [place] 00 tion - DILUTE. Protect from light. [...] ia 12-25 (Same as: l 22:00: Pepcid) [place] Mestinon No Notes: Memoria 12-25 (Same as: l 21:00: Mestinon) [place] Sodium No Notes: SEE Memor ia Chloride [...] WASTE: F/P l 16:00: - Sink; E [place] - Municipal Trash Bin albumin No Notes: Memoria human 5% 12-25 LOT#: l intravenous 15:35: Jorge Alberto solution 00 ___Mfg:___ ___ (Same as: Albuminar) "blood product derivative " WASTE: F/P - Red; E -Red MEDICATION WASTE Product Size: 25 gm Product Wasted: ___ gm Prednisone No Notes: Memor ia Take with l 14:00: food. [place] 00 Thyroxine No Notes: Memori a 12-25 Take 1 l 11:30: hour 00 before or 2 hours after meal; Enteral feeds may interefere with the absorption of this medication . (Same as:Synthro id) ocular No Notes: Memoria lubricant 12-25 (Same as: l 05:00: Lacri-Lube 00 , Puralube, Duratears Naturale, Artificial [...] emoria 12-25 Daily, 0 l 04:55: Refill(s) Furosemide No 80 mg, PO, M emoria 12-25 Daily, 0 l 04:55: Refill(s) Potassium Yes 20 mEq, Memor ia Chloride 12-25 PO, Daily, l 04:55: 0 Refill(s) Pyridostigm Yes 60 mg, PO, Memoria ine 12-25 Q8H, 0 l 04:55: Refill(s) sertraline Yes 25 mg = 1 Me moria 25 mg oral 12-25 tab, PO, l tablet 04:55: Daily, 0 [place] 00 Refill(s) Thyroxine Yes 88 Memoria 12-25 microgram, l 04:55: PO, Daily, [place] 00 0 Refill(s) Alendronic Yes 70 mg = 1 Me moria acid 70 MG -27 tab, PO, 0 l Oral Tablet 04:55: Refill(s) H ermann [Fosamax] 00 Levemir 2019-0 No SUB-Q, 0 Memori a 7-27 Refill(s) [...] 02:00: Colace) sennosides, No Notes: Kalia aida RETIREMENT 8.6 MG 7-27 (Same as: l Oral Tablet 02:00: Senokot) [facility] Ceftriaxone No Notes: Memoria 7-27 MEDICATION l 02:00: WASTE Product Size: 2000 mg Product Wasted: ___ mg Albuterol No Notes: Memori a 0.833 MG/ML -27 (Same as: l / 01:57: Duoneb) Ipratropium 00 [place] 0.167 MG/ML Inhalant Solution [DuoNeb] chlorhexidi No [...] 1000 mg Product Wasted: ___ mg Tylenol 2019- No 100.4 F, Memor ia 7-26 Start [...] phosphate 7-26 (Same as: l 23:37: K 00 Phosphate. ) Do not infuse phosphorou s concurrent ly in the same line as TPN or IVF that contains calcium. For double lumen central lines, phosphorou s may be infused in a separate lumen from TPN. 1 mMol phoshate has 1.47 mEq potassium Infuse over 4 hours potassium No Notes: Memori a phosphate-s - (Same as: l odium 23:37: Phos-NaK) [place] phosphate 00 Each 1.5 250 mg-280 gm pkt has mg-160 mg 250mg oral powder phosphorou for s. Mix reconstitut w/2.5oz ion water and stir. Magnesium 2019-0 No Notes: Memori a Sulfate 7-26 WASTE: F/P l 23:37: - Sink; E Jorge Alberto - Municipal Trash Bin Magnesium No Notes: Memori a Oxide 12-24 (Same as: l 23:37: Mag-Ox [place] 00 400) Magnesium oxide [id number] g elemental magnesium Dose=____m g magnesium oxide (___mg elemental magnesium) Calcium No Notes: Memoria Gluconate 12-24 WASTE: F/P l 23:37: - Sink; E [place] - Municipal Trash Bin Calcium No Notes: Memoria Carbonate 12-24 (Same As: l 500 MG 23:37: Tums) Jorge Alberto Chewable 00 Calcium Tablet Carbonate 500 mg = 200 mg elemental calcium Dose = mg calcium carbonate ( mg elemental calcium) Dextrose No 12.5 gm, Memor ia 50% Syringe 12-24 25 mL, l 23:37: Route: Jorge Alberto 00 IVP, Drug Form: INJ, Dosing Weight 102.273, kg, PRN, PRN Blood Glucose Results, Start date: 12/24/18 18:37:00 CDT, Duration: 30 day, Stop date: 01/23/19 18:36:00 CDT, 0 Glucagon No 1 mg, Memoria 12-24 Route: IM, l 23:37: Drug form: Jorge Alberto PDR/INJ, PRN, Dosing Weight 102.273, kg, PRN Blood Glucose Results, Start date: 12/24/18 18:37:00 CDT, Duration: 30 day, Stop date: 01/23/19 18:36:00 CDT, 0 chlorhexidi No Notes: Kalia aida ne 12-24 (Same As: l gluconate 23:37: Peridex) Herm mercy 1.2 MG/ML 00 Mouthwash Insulin No Notes: Memoria regular 12-24 Roll in l 23:37: palms of [place] 00 hands gently; do not shake vigorously [...] 1,000 mL 23:37: Isolyte S [facility] mercy PH 7.4) Ibuprofen No Notes: Memori a 11-29 (Same as: l 14:35: Motrin) Jorge Alberto 00 "Do Not Crush" Give with food. Tylenol No Notes: Max Kalia aida 11-29 acetaminop l 14:32: hen 4000 Jorge Alberto 00 mg/day (4 gm/day). (Same as: Tylenol Extra Strength) Pyridostigm Pyridostigm Yes SUUR TAKE 1 Univers ine Lewis ine Lewis 6-25 BILICILER TABLET BY ity of 60 MG Oral 60 MG Oral 00:00: M.D. MOUTH [place] Tablet Tablet 00 THREE Physici TIMES A ans DAY Sertraline Sertraline Yes SUUR QD TAKE 1 [facility] HCl - 25 MG HCl - 25 MG 6-14 BILICILER TABLET BY ity of Oral Tablet Oral Tablet 00:00: M.D. MOUTH [place] 00 EVERY DAY Physici ans predniSONE predniSONE Yes SUUR 1.5 QD TAKE 1.5 Univers 20 MG Oral 20 MG Oral 5-10 BILICILER TABLET ity of Tablet Tablet 00:00: M.D. DAILY [place] 00 Physici ans Mestinon No Notes: Memoria 4-25 [...] 4-25 Route: IM, l 08:43: Drug form: [place] 00 PDR/INJ, PRN, Dosing Weight 91.818, kg, [...] 14:00: Pepcid) sennosides, No Notes: Kalia aida RETIREMENT 8.6 MG 4-24 (Same as: l Oral [...] (Same as l MG / 14:00: Senokot-S) side Equiv. to RETIREMENT 8.6 MG [place] Oral Tablet e. Levothroid Yes 88 Memoria 88 mcg 4-24 microgram l (0.088 mg) 02:02: = 1 tab, Her restrepo oral tablet 00 PO, Daily, 0 Refill(s) rosuvastati No Notes: Kalia aida n 4-24 (Same As: l 02:00: Crestor) Insulin No 20 unit, Memori a Glargine -24 0.2 mL, l 100 [...] of Oral Tablet Oral Tablet 00:00: BEDTIME. [place] Physici ans Occupationa Yes See Memori a l Therapy 09-19 Instructio l 16:48: ns, MISC, Jorge Alberto 00 ONCALL, Evaluate and Treat __3_ times per week for __4__ weeks, # 1 bag, 0 Refill(s) Physical Yes See Memoria Therapy 09-19 Instructio l 16:48: ns, MISC, [place] 00 ONCALL, Evaluate and Treat _3__ times per week for __4__ weeks, # 1 bag, 0 Refill(s) Ramipril No Notes: Memoria -21 (Same l 15:56: as:Altace) [place] 00 Furosemide Yes 20 mg = 1 Me moria 20 MG Oral 4-21 tab, PO, l Tablet 15:44: Every [place] 00 Other Day, # 15 tab, 3 Refill(s) amLODIPine Yes 10 mg = 1 Me moria 10 mg oral 4-21 tab, PO, l tablet 15:44: Daily, # [place] 00 30 tab, 3 Refill(s) predniSONE Yes 60 mg = 3 Me moria 20 mg oral 4-21 tab, PO, l tablet 15:44: Daily, X [place] 00 30 day, # 90 tab, 0 Refill(s) pyridostigm Yes 60 mg = 1 M emoria ine 60 mg 4-21 tab, PO, l oral tablet 15:44: Q8Hnow, # H erm 00 90 tab, 3 Refill(s) ramipril 5 Yes 10 mg = 2 Me moria mg oral 4-21 cap, PO, l capsule 15:44: Daily, # Berto n 00 60 cap, 3 Refill(s) sennosides, Yes 8.6 mg = 1 Memoria RETIREMENT 8.6 MG 4-21 tab, PO, l Oral [...] No 1,000 mL, Memori a saline 0.9% 09-18 Rate: 75 l IV 1,000 mL 05:54: [...] n 00 30 cap, 1 Refill(s), Pharmacy: [id number] metoprolol 2019-0 No 25 mg = 1 Me moria tartrate 25 4-19 tab, PO, l mg oral 23:56: Q12H, # 60 Herm mercy tablet 00 tab, 1 Refill(s), Pharmacy: [id number] Furosemide 2019-0 No 20 mg = 1 Me moria 20 MG Oral 4-19 tab, PO, l Tablet 23:56: Every [place] 00 Other Day, # 30 tab, 1 Refill(s), Pharmacy: [facility][id number] amLODIPine 2019-0 No 10 mg = 1 Me moria 10 mg oral 4-19 tab, PO, l tablet 23:56: Daily, # [place] 00 30 tab, 1 Refill(s), Pharmacy: [facility][id number] sertraline 2019-0 No 25 mg = 1 Me mor[facility] 25 mg oral 4-19 tab, PO, l tablet 23:56: Q24H, # 30 Gerda nn 00 tab, 1 Refill(s), Pharmacy: [id number] sennosides, 2019-0 No 8.6 mg = 1 [facility] RETIREMENT 8.6 MG 4-19 tab, PO, l Oral Tablet 23:56: BID, # 60 H ermann 00 tab, 0 Refill(s), Pharmacy: [facility] #[id number] pyridostigm 2019-0 No 60 mg = 1 M emoria ine 60 mg 4-19 tab, PO, l oral tablet 23:56: Q8Hnow, # H ermann 00 90 tab, 1 Refill(s), Pharmacy: [facility] #[id number] predniSONE 2019-0 No 60 mg = 3 Me moria 20 mg oral 4-19 tab, PO, l tablet 23:56: Daily, # [place] 00 30 tab, 1 Refill(s), Pharmacy: [facility] #[id number] Insulin 2018-0 No Notes: Memoria regular -19 (Same as: l 23:52: Humulin R) [place] 00 Roll in palms of hands gently; Do not shake vigorously . WASTE: F/P - Black; E - Municipal Trash Bin Stable for 31 days at room temperatur e Expires in days from ____Date Glucagon 2018-0 No 1 mg, [facility] -19 Route: IM, l 23:52: Drug form: [place] 00 PDR/INJ, PRN, Dosing Weight 91.378, kg, [...] day, Stop date: 10/17/18 18:51:00 CDT Melatonin 2019-0 No 1 mg, [facility] 0.25 mg/mL 09-17 Route: PO, l oral liquid 02:00: Dosing Herm mercy 00 Weight 91.378, kg, Bedtime, Start date: 09/16/18 21:00:00 CDT, Duration: 30 day, Stop date: 10/15/18 21:00:00 CDT insulin, No Notes: Memoria isophane 4-18 (Same as: l 15:30: Humulin N) [place] 00 Roll in palms of hands gently; Do not shake vigorously . WASTE: F/P - Black; E - Municipal Trash Bin Stable for 31 days at room temperatur e Expires in days from ____Date Amlodipine No Notes: Memor ia 4-18 (Same as: l 14:00: Norvasc) Jorge Alberto melatonin 1 No 1 mg, 1 Mem [...] as: l 01:34: Humulin R) Jorge Alberto 00 Roll in palms of hands gently; Do not shake vigorously . WASTE: F/P - Black; E - Municipal Trash Bin Stable for 31 days at room temperatur e Expires in days from ____Date Miralax No Notes: Memoria 4-17 Dissolve l 14:00: in 8 oz of [place] 00 water or juice. (Same as: Miralax) lansoprazol No Notes: Kalia aida e 4-17 Take 1 l 14:00: hour Jorge Alberto 00 before or 2 hours after meal; Expires in 14 days. Shake well before use. (Same as:Prevaci d) Compound ed Product - formulatio n not commercial ly available* * insulin, No Notes: Memoria isophane 4-17 (Same as: l 05:00: Humulin N) [place] 00 Roll in palms of hands gently; [...] mg docusate No Notes: Memoria sodium 100 -16 (Same as: l mg oral 22:00: Colace) [place] capsule 00 (Do Not Crush) sennosides, No Notes: Kalia aida RETIREMENT 4-16 (Same as: l 22:00: Senokot) [place] 00 insulin, No Notes: Memoria isophane 4-16 [...] 25 mL, l 21:20: Route: Jorge Alberto IVP, Drug Form: INJ, Dosing Weight 91.378, kg, PRN, PRN Blood Glucose Results, Start date: 09/14/18 16:20:00 CDT, Duration: 30 day, Stop date: 10/14/18 16:19:00 CDT Saline No Notes: Memoria Flush 0.9% 4-16 (Same as: l 16:01: BD Jorge Alberto 00 Posiflush) Nystatin No Notes: Memoria 100 UNT/MG 4-16 (Same l Topical 16:01: as:Mycosta Herm mercy Powder 00 tin, Nilstat) For external use only. Amlodipine No Notes: Memor ia 4-16 (Same as: l 14:00: Norvasc) [place] 00 Lasix No Notes: Memoria 4-16 (Same as: l 13:45: Lasix) MEDICATION WASTE Product Size: 40 mg Product Wasted: ___ mg Albuterol No Notes: Memori a 0.833 MG/ML -16 (Same as: l / 12:48: Duoneb) Ipratropium 00 Lewis 0.167 MG/ML Inhalant Solution [DuoNeb] Potassium No Notes: Memori a Chloride 4-16 (Same as: l 1.33 MEQ/ML 07:31: Potassium H ermann Oral 00 Chloride) Solution Sertraline No Notes: Memor ia 4-16 (Same as: l 02:00: Zoloft) Jorge Alberto Immunoglobu No 25 gm, Kalia aida lawanda [...] F/P l empty 20:00: - Red; E Jorge Alberto container 1 [...] being intubated (unless the nurse is a MATHEMATICAL ENGINEERING TECHNICIAN). Same as: Diprivan Rocuronium No Notes: Memor [...] being intubated (unless the nurse is a MATHEMATICAL ENGINEERING TECHNICIAN). Same as: Diprivan ocular No Notes: Memoria lubricant 4-15 (Same as: l 11:00: Lacri-Lube [place] 00 , Puralube, Duratears Naturale, Artificial Tears, [...] Syringe -15 12.5 mL, l 06:52: Route: [place] 00 IVP, Drug Form: INJ, Dosing Weight 91.378, kg, PRN, PRN Abnormal Lab Result, Start date: 09/13/18 1:52:00 CDT, Duration: 30 day, Stop date: 10/13/18 1:51:00 CDT Adult No Notes: Memoria Parenteral 4-15 Must use l Nutrition 03:00: 1.2 micron He rmann - filter AND Peripheral Lipids (PPN not should not TPN) 2,040 be mL administer ed to patients who are allergic to soy, fish, egg or peanuts. Immunoglobu No 50 gm, Kalia aida lawanda G 4-15 Route: IV, l 02:00: Q24H, [place] Dosing Weight 91.378, kg, Start date: 09/12/18 [...] F/P l empty 02:00: - Red; E [place] container 1 00 -Red Lot bag # [...] elemental calcium) Calcium No Notes: Memoria Gluconate 09-12 WASTE: F/P l 21:44: - Sink; E Jorge Alberto 00 - Municipal Trash Bin Magnesium No Notes: Memori a Oxide 09-12 (Same as: l 21:44: Mag-Ox [place] 00 400) Magnesium oxide [id number] g elemental magnesium Dose=____m g magnesium oxide (___mg elemental magnesium) Magnesium No Notes: Memori a Sulfate 09-12 WASTE: F/P l 21:44: - Sink; E [place] 00 - Municipal Trash Bin potassium No Notes: Memori a phosphate-s 09-12 (Same as: l odium 21:44: K-Phos Jorge Alberto phosphate 00 Neutral, 250 mg-280 Phospha mg-160 mg 250 oral powder Neutral) for reconstitut ion Potassium No Notes: Memori a Chloride 09-12 (Same as: l 21:44: K-Dur 20) 00 "Do Not Crush" Give with food and full glass of water For patients unable to swallow tablet, dissolve in one half glass of water. Allow about 2 minutes for the tablets to disintegra te. Stir before giving to prepare slurry and administer . Please exclude Patient s with feeding tube less than 14 Somali (Dobhoff, J-tube etc) and pediatric and patients. sodium No Notes: Memoria phosphate - Infuse l 21:44: over 4 [place] 00 hour. Do not infuse phosphorou s concurrent ly in the same line as TPN or IVF that contains calcium. For double lumen central lines, phosphorou s may be infused in a separate lumen from TPN. potassium No Notes: Memori a phosphate -14 (Same as: l 21:44: K [place] 00 Phosphate. ) Do not infuse phosphorou s concurrent ly in the same line as TPN or IVF that contains calcium. For double lumen central lines, phosphorou s may be infused in a separate lumen from TPN. 1 mMol phoshate has 1.47 mEq potassium Infuse over 4 hours benzocaine No Notes: Memor ia topical gel 09-12 (Same As: l 21:38: Maximum [place] 00 Strength PM Orajel ) Immunoglobu No 75 gm, Kalia aida lawanda G 4-14 Route: IV, l 17:00: Drug form: INJ, Q24H, Dosing Weight 91.378, kg, Start date: 09/12/18 12:00:00 CDT, Duration: 1 doses or times, Stop date: 09/12/18 12:00:00 CDT, Indication : Myasthenia gravis Magnesium 2018- No Notes: Memori a Sulfate -14 WASTE: [...] / 14:00: Senokot-S) sennosides, 00 Equiv. to RETIREMENT 8.6 MG Cassidy-Colac Oral Tablet e. Furosemide [...] product derivative " rosuvastati No Notes: Kalia adia n 4-13 (Same As: l 02:00: Crestor) [...] l 21:47: as:Solu-ME DROL, A-Methapre d) Zofran 0 No Notes: Memoria 4-12 (Same as: l [...] units) l 13:17: WASTE: F/P Jorge Alberto 00 - Black; E - Municipal Trash Bin Stable for 28 days at room temperatur e Expires in days from ____Date Glucagon 0 No 1 mg, Memoria -12 Route: IM, l 13:17: Drug form: PDR/INJ, [...] Saline 2018-0 No Notes: Memoria Flush 0.9% -12 (Same as: l 05:20: BD Posiflush) Dextrose 5% 0 No 1,000 mL, M emoria with 0.9% [...] (Same capsular as: antigen Prevnar diphtheria 13) [id number] protein conjugate vaccine / Streptococc us pneumoniae serotype 14 capsular antigen diphtheria [id number] protein conjugate vaccine / Streptococc us pneumoniae [...] No 1 appl, Kalia aida 0.5 UNT/MG -11 Route: l Ophthalmic 14:00: RIGHT EYE, H [...] nn Prefilled 00 Refill(s) Syringe [Trulicity] Insulin 2019-0 Yes 20 unit, Daniel a Glargine 4-10 SUB-Q, l 100 UNT/ML 23:50: Bedtime, # H ermann Injectable 00 3 mL, 3 Solution Refill(s) heparin 2018-0 No Notes: Memoria 4-10 porcine l 21:00: heparin [place] Dextrose 2018-0 No 12.5 gm, Memor ia 50% Syringe 4-10 25 mL, l 14:49: Route: IVP, Drug Form: INJ, Dosing Weight 94.3, [...] tab, PO, l tablet 00:09: Daily, # [place] 00 90 tab, 3 Refill(s), Pharmacy: [facility] [id number] rosuvastati 2018- Yes 20 mg = 2 M emoria n 10 mg 3-22 tab, PO, l oral tablet 00:09: Bedtime, # [place] 00 180 tab, 3 Refill(s) ramipril 5 2019- Yes 10 mg = 2 Me moria mg oral 3-22 cap, PO, l capsule 00:09: Q24H, # 180 cap, 3 Refill(s) Insulin 2019-0 Yes [...] tab, PO, l tablet 00:09: Daily, # [place] 00 90 tab, 3 Refill(s) metoprolol Yes [...] 3-21 (Same as: l 14:00: Norvasc) Fentanyl 2018- No 50 Memoria 3-21 microgram, l 13:49: Route: IV, ONCE, Dosing Weight 111.6, kg, Start date: 08/19/18 8:49:00 CDT, Stop date: 08/19/18 8:49:00 CDT Omnipaque No 150 ml, Memor ia 350 3-21 Route: l 13:49: INTRAARTER Jorge Alberto 00 IAL, Dosing Weight 111.6, kg, ONCE, Start date: 08/19/18 8:49:00 CDT, Stop date: 08/19/18 8:49:00 CDT heparin 2018-0 No 3,000 Memoria 3-21 unit, l 13:49: Route: IV, ONCE, Dosing Weight 111.6, kg, Start date: 08/19/18 8:49:00 CDT, Stop date: 08/19/18 8:49:00 CDT Midazolam 2018-0 No 1 mg, Memoria 3-21 Route: IV, l 13:49: ONCE, Dosing Weight 111.6, kg, Start date: 08/19/18 8:49:00 CDT, Stop date: 08/19/18 8:49:00 CDT iodixanol 2018-0 No 100 mL, Memor ia -20 Route: l 18:07: IVP, Drug Form: SOLN, [...] 3-20 (Same as: l 14:00: Norvasc) heparin 2018-0 No Notes: Memoria 3-20 porcine l 05:00: heparin atorvastati 2018-0 No 40 mg, Kalia aida n 3-20 [...] regular 3-19 units) l 14:05: WASTE: F/P [place] - Black; E - Municipal Trash Bin Stable for 28 days at room temperatur e Expires in days from ____Date 3 ML 0 No 40 unit, Memoria Insulin 3-19 SUB-Q, l Glargine 08:49: Bedtime, # Her restrepo 100 UNT/ML 00 3 mL, 3 Prefilled Refill(s) Syringe [Lantus] Insulin No 60 Memoria regular 3-19 units) l 08:18: WASTE: F/P [place] 00 - Black; E - Municipal Trash Bin Stable for 28 days at room temperatur e Expires in days from ____Date Dextrose 2019-0 No 12.5 gm, Memor ia 50% in 3-19 25 mL, l Water 07:18: Route: [place] (bolus) IV 00 IVP, Drug Form: INJ, Dosing Weight 113.636, kg, PRN, PRN Blood Glucose Results, Start date: 08/17/18 2:18:00 CDT, Duration: 30 day, Stop date: 09/16/18 2:17:00 CDT Glucagon 2018-0 No 1 mg, Memoria 08-17 Route: IM, l 07:18: Drug form: [place] 00 PDR/INJ, PRN, Dosing Weight 113.636, kg, [...] mL, Route: l 23:14: Hernán IV, Drug [place] form: INJ, Q4H, PRN Elevated BP, Start [...] Angelito Rate: 100 l 22:56: Hernán ml/hr, [place] Infuse over: 10 hr, Route: IV, Total Volume: 1,000, Start date: 03/24/11 17:56:00, Duration: 30 day, Stop date: 04/23/11 17:55:00 Novolin N 2010-06 No Allen 10 unit, Mem oria 0-24 Angelito 0.1 mL, l 14:00: Hernán Route: Jorge Alberto 00 SUB-Q, Drug form: INJ, BID, Start date: 03/24/11 9:00:00, Duration: 30 day, Stop date: 04/22/11 17:00:00 [place] 2010-06 No Allen 120 mg, 2 Memor ia Thyroid 0-24 Angelito tab, l 13:30: Hernán Route: PO, Gerda nn 00 Drug [...] Duration: 30 day, Stop date: 04/22/11 7:36:00 [place] 2010-06 No Allen 120 mg, Memoria Thyroid [...] tablet 02:00: Hernán Route: PO, Her restrepo Drug form: TAB, Q12H, Start date: 03/22/11 21:00:00, Duration: 30 day, Stop date: 04/21/11 9:00:00 [place] 5/325 2010-06 No Allen 1 tab, Mem oria oral tablet 0-22 Angelito Route: PO, l 22:33: Hernán Drug Form: Gerda nn 00 TAB, Q4H, PRN Pain, Start date: 03/22/11 17:33:00, Duration: 30 day, Stop date: 04/21/11 17:32:00 1/2NS + KCL 2010-06 No [place] 500 mL, M emoria 20mEq/L 0-22 Begum [...] ea, Route: l 22:00: Hernán PO, Drug [place] 00 form: TAB, BID, Start date: 03/22/11 [...] Angelito 0.03 mL, l 21:28: Hernán Route: [place] 00 SUB-Q, Drug form: SOLN, TID-Before Meals, [...] Dumont mL, Route: l 15:12: IVP, Drug [place] 00 form: INJ, ONCE, Priority: STAT, Start date: 03/22/11 10:12:00, Stop date: 03/22/11 10:12:00 morphine 2010-06 No Martha 4 mg, 1 Me moria Sulfate 0-22 Dumont mL, Route: l 15:11: IVP, Drug Jorge Alberto 00 form: INJ, ONCE, Priority: STAT, Start date: 03/22/11 10:11:00, Stop date: 03/22/11 10:11:00 Crestor 20 Crestor 20 2010-06 Yes QD TAKE 1 [employer] MG Oral MG [...] Mercy Neymar cap, l 11:21: Route: PO, Jorge Alberto 00 Drug form: CAP, Q4H, PRN Itching, Start [...] tab, l tablet 14:00: Korimilli Route: PO, [place] 00 Drug Form: TAB, Daily, Start date: 03/14/11 9:00:00, Duration: 30 day, Stop date: 04/12/11 9:00:00 metoprolol 2010-06 No Darcy 12.5 mg, 1 Memoria 0-14 Jeane ea, Route: l 14:00: Ayden PO, Drug Gerda nn 00 form: TAB, [...] oral 0-14 Jeane tab, l tablet 14:00: Ayden Route: PO, H ermann 00 Drug form: TAB, Q12H, Start date: 03/14/11 9:00:00, Duration: 30 day, Stop date: 04/12/11 21:00:00 Novolin N 2010-06 No Darcy 10 unit, Memoria 0-14 Jeane 0.1 mL, l 14:00: Ayden Route: Jorge Alberto 00 SUB-Q, Drug form: INJ, BID, Start date: 03/14/11 9:00:00, Duration: 30 day, Stop date: 04/12/11 17:00:00 docusate 2010-06 No Darcy 100 mg, 1 Memoria sodium 100 0-14 Jeane cap, l mg oral 14:00: Ayden Route: PO, Jorge Alberto capsule 00 Drug form: CAP, BID, Start [...] oria 0-14 Jeane unit, 1 l 13:00: Ayden mL, Route: Her restrepo 00 SUB-Q, Drug form: INJ, Q8H, Start date: 03/14/11 8:00:00, Duration: 30 day, Stop date: 04/13/11 0:00:00 ciprofloxac 2010-06 No Darcy 750 mg, 3 Memoria in 0-14 Jeane tab, l 12:00: Ayden Route: PO, Her erstrepo 00 Drug form: TAB, [id number], Start date: 03/14/11 7:00:00, Duration: 30 day, Stop date: 04/12/11 19:00:00 cefepime 2010-06 No Daryc 2 gm, Me moria 0-14 Jeane Route: IV, l 12:00: Ash Drug form: Her restrepo 00 INJ, [id number], Start date: 03/14/11 7:00:00, Duration: 30 day, Stop date: 04/12/11 23:00:00 [place] 2010-06 No Darcy 120 mg, 2 Memoria Thyroid 0-14 Jeane tab, l 11:45: Ayden Route: PO, Her restrepo 00 Drug form: TAB, [id number], Start date: 03/14/11 6:45:00, Duration: 30 day, Stop date: 04/13/11 6:30:00 glucagon 2010-06 No Darcy 1 mg, Me moria 0-14 Jeane Route: IM, l 11:06: Ayden Drug form: Her restrepo 00 PDR/INJ, PRN, [...] aspart 0-14 Jeane 0.04 mL, l 11:06: Ayden Route: Jorge Alberto 00 SUB-Q, Drug form: SOLN, TID-Before Meals, PRN Blood Glucose Results, Start date: 03/14/11 6:06:00, Duration: 30 day, Stop date: 04/13/11 6:05:00 [place] 5/325 2010-06 No Darcy 1 tab, Memoria oral tablet 0-14 Jeane Route: PO, l 11:02: Ash Drug Form: Her restrepo 00 TAB, Q4H, PRN as needed for pain, Start date: 03/14/11 6:02:00, Duration: 30 day, Stop date: 04/13/11 6:01:00 magnesium 2010-06 No Darcy 2 gm, 50 Memoria sulfate 0-14 Jeane mL, Route: l 11:01: Ayden IVPB, Drug Her restrepo 00 form: INJ, [...] Farmer Rate: l 0.9% 04:20: Burden 1,000 [place] (Bolus) IV 00 ml/hr, 1,000 mL Infuse [...] l 01:00: Aaron PO, Drug Jorge Alberto form: TAB, BID, Start date: 03/06/11 20:00:00, [...] 01 40 tab, Substituti on Allowed, TAB [place] 5/325 2010-06 Yes McCasey R 1 tab, PO, Memoria oral tablet 0-06 Rizvi Q4H, PRN, l 20:23: 40 tab, [place] 43 Pain, Substituti on Allowed, Maintenanc e, TAB Novolin N 2010-06 Yes McCasey R 10 unit, Memoria 100 0-06 Rizvi SUB-Q, l units/mL 20:23: BID, 10 Berto n subcutaneou 30 ml, s injection Substituti on Allowed, SUSP [place] 2010-06 Yes McCasey R 120 mg, 2 M emoria Thyroid 60 0-06 Rizvi tab, PO, l mg oral 20:23: Before Jorge Alberto tablet 07 Breakfast, 60 tab, Substituti on Allowed, TAB Keppra 500 2010-06 Yes McCasey R 500 mg, 1 Memoria mg oral 0-06 Rizvi tab, PO, l tablet 20:22: Q12H, 60 [place] 39 tab, Substituti on Allowed, TAB Crestor [...] PO, l mg oral 20:21: BID, 30 [place] capsule 19 cap, Substituti on Allowed, CAP ciprofloxac 2010-06 Yes McCasey R 750 mg, 3 Memoria in 250 mg 0-06 Rizvi tab, PO, l oral tablet 20:20: Q12H, 40 He rmann 50 doses or times, Substituti on Allowed, TAB Maxipime 2 2010-06 Yes McCasey R 2 gm, IV, Memoria g injection 0-06 Rizvi Q8H, 60 l 20:19: doses or [place] 42 times, Substituti on Allowed calcium 2010-06 [...] date: 02/27/11 8:00:00, Stop date: 03/28/11 8:00:00 [place] 2011-0 No Bonnie Jyotsna 120 mg, 2 Memoria [...] 02-27 Zeider tab, l 04:00: Route: PO, [place] Drug form: TAB, Q12H, Priority: Routine, Start date: 02/26/11 23:00:00, Duration: 30 day, Stop date: 03/28/11 11:00:00 Crestor No Bonnie Jyotsna 20 mg, 2 Memoria 02-27 Zeider tab, l 02:00: Route: PO, [place] 00 Drug form: TAB, Daily, Start date: 02/26/11 21:00:00, Duration: 30 day, Stop date: 03/27/11 21:00:00 levetiracet No Bonnie Jyotsna 500 mg, 1 Memoria am 02-27 Zeider tab, l 02:00: Route: PO, [place] 00 Drug form: TAB, Q12H, Start date: 02/26/11 21:00:00, Duration: 30 day, Stop date: 03/28/11 9:00:00 magnesium No Bonnie Jyotsna 400 mg, 1 Memoria oxide 02-27 Zeider tab, l 01:00: Route: PO, Jorge Alberto 00 Drug form: TAB, BID, Start date: 02/26/11 20:00:00, Duration: 5 day, Stop date: 03/03/11 8:00:00 insulin No Bonnie Jyotsna 10 unit, 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 02-27 Zeider 0.1 mL, l H 01:00: Route: [place] 00 SUB-Q, Drug form: INJ, BID, Start [...] Zeider mL, Route: l 22:39: IVP, Drug Jorge Alberto form: INJ, ONCE, PRN Nausea & Vomiting, Start date: 02/26/11 17:39:00 Saline No Bonnie Jyotsna 5 ml, Kalia aida Flush 0.9% 02-26 Zeider Route: l 22:39: IVP, Drug Form: INJ, PRN, PRN Line Flush, Start date: 02/26/11 17:39:00, Duration: 30 day, Stop date: 03/28/11 17:38:00 calcium No Bonnie Jyotsna 500 mg, 1 Memoria carbonate 02-26 Zeider tab, l 22:39: Route: CHEW, Drug form: CHEWTAB, TID, PRN Indigestio n, Start date: 02/26/11 17:39:00, Duration: 30 day, Stop date: 03/28/11 17:38:00 [place] 5/325 No Bonnie Jyotsna 1 tab, Memoria oral tablet 02-26 Zeider Route: PO, l 22:39: Drug Form: [place] TAB, Q4H, PRN Pain, Start date: 02/26/11 17:39:00, Duration: 30 day, Stop date: 03/28/11 17:38:00 acetaminoph No Bonnie Jyotsna 650 mg, Memoria en 02-26 Zeider 20.3 mL, l 22:39: Route: PO, Drug form: LIQ, Q4H, PRN Fever, Start date: 02/26/11 17:39:00, Duration: 30 day, Stop date: 03/28/11 17:38:00 [place] No Bonnie Jyotsna 1 tab, Kalia aida 7.5/325 02-26 Zeider Route: PO, l oral tablet 22:39: Drug Form: [place] 00 TAB, Q4H, PRN Pain, Start date: 02/26/11 17:39:00, Duration: 30 day, Stop date: 03/28/11 17:38:00 Insulin No Bonnie Jyotsna 2 unit, M emoria regular 02-26 Zeider 0.02 mL, l 22:39: Route: Jorge Alberto 00 SUB-Q, Drug form: SOLN, TID-Before Meals, PRN Blood Glucose Results, Start date: 02/26/11 17:39:00, Duration: 30 day, Stop date: 03/28/11 17:38:00 [place] Yes Katie L 120 mg, 2 M [...] 23 tab, Substituti on Allowed, TAB Prinivil Yes Katie L 10 mg, 1 Memoria mg oral 02-26 Christianson tab, PO, l tablet 18:40: BID, 30 [place] 14 tab, Substituti on Allowed, TAB levetiracet Yes Katie L 500 mg, 1 Memoria am 500 mg 02-26 Christianson tab, PO, l oral tablet 18:40: Q12H, 30 He rmann 10 tab, Substituti on Allowed, TAB hydrALAZINE Yes Katie L 25 mg, 1 Memoria 25 mg oral 02-26 Christianson tab, PO, l tablet 18:40: Q8H, 30 [place] 03 tab, Substituti on Allowed, TAB heparin Yes Katie L 5000 Memor ia 5000 02-26 Christianson units, l units/mL 18:39: SUB-Q, [place] injectable 57 Q8H, 30 solution doses or times, Substituti on Allowed, SOLN Lasix 40 mg Yes Katie L 40 mg, 1 Memoria oral tablet 02-26 Christianson tab, PO, l 18:39: Daily, 30 [place] 49 tab, Substituti on Allowed, TAB docusate [...] Skyler 133 ml, Memoria 02-24 Dean Route: [place], l 19:38: Joel Drug Form: Herm mercy 00 JEANNIE, ONCE, Start date: 02/24/11 14:38:00, Stop date: 02/24/11 14:38:00 bisacodyl No Skyler 10 mg, 1 M emoria 02-24 Dean supp, l 19:38: Joel Route: [place], Nikolas law 00 Drug form: SUPP, ONCE, [...] tab, l 16:02: Aaron Route: PONikolasa nn Drug form: TAB, ONCE, Priority: NOW, [...] insulin No Val 10 unit, 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 02-21 0.1 mL, l H 22:00: Aaron Route: [place] 00 SUB-Q, Drug form: INJ, BID, Start [...] 02-20 Christianson Route: l 23:00: IVPB, Drug [place] 00 form: INJ, [id number], Start date: 02/20/11 [...] Duration: 30 day, Stop date: 03/22/11 8:00:00 [place] No Claudy 1 tab, Memoria 7.5/325 02-20 [...] Duration: 30 day, Stop date: 03/21/11 9:00:00 [place] 0 No Albaro 120 mg, 2 Kalia [...] 02-20 Day 100 mL, l 09:00: Route: [place] 00 IVPB, Q2H, Start date: 02/20/11 4:00:00, [...] Kasi 10 mL, l 02:18: Route: IV, [place] Drug form: INJ, ONCE, Start date: 02/19/11 21:18:00, Stop date: 02/19/11 21:18:00 Tylenol No Claudy 650 mg, 2 Kalia aida 02-20 Salazar tab, l 02:13: Route: PO, [place] Drug form: TAB, Q4H, PRN Fever, Start [...] Duration: 30 day, Stop date: 03/21/11 9:00:00 [place] 5/325 No Albaro 1 tab, Me moria oral tablet 02-19 Dav Route: PO, l 21:14: Christopher Drug Form: Berto n 00 TAB, Q4H, PRN Pain, Start date: 02/19/11 16:14:00, Duration: 30 day, Stop date: 03/21/11 16:13:00 ciprofloxac No Laure Thi 400 mg, Memoria in 02-19 Sahu 200 mL, l 21:10: Route: [place] 00 IVPB, Drug form: INJ, [id number], Priority: NOW, Start date: 02/19/11 16:10:00, Duration: 30 day, Stop date: 03/21/11 4:10:00 vancomycin No Sky 2 gm, Kalia aida 02-19 Ollie Rizvi Route: l 21:02: IVPB, [place] 00 ONCE, Priority: STAT, Start date: 02/19/11 [...] Demarco 12.5 mL, l 20:51: White Route: [place] 00 IVP, Drug Form: INJ, PRN, PRN Abnormal Lab Result, Start date: 02/19/11 15:51:00, Duration: 30 day, Stop date: 03/21/11 15:50:00 Saline No Albaro 5 ml, Memoria Flush 0.9% 02-19 Demarco Route: l 20:51: Christopher IVP, Drug [place] 00 Form: INJ, PRN, PRN Line Flush, [...] Carlos 0.1 mL, l 19:18: Herman Route: [place] 00 IVP, Drug form: INJ, Q2MIN, PRN Narcotic Reversal, Start date: 02/19/11 14:18:00, Duration: 8 doses or times, Stop date: 02/20/11 14:18:00 hydromorpho No Claudy 0.3 mg, Me moria ne 02-19 Salazar 0.15 mL, l 19:18: Route: [place] 00 IVP, Drug form: INJ, Q5Min, PRN [...] IVPB, Drug Jorge Alberto 00 form: INJ, [id number], Start date: 02/19/11 14:00:00, Duration: 30 day, Stop date: 03/21/11 2:00:00 ondansetron Yes Bonnie Jyotsna 4 mg, 2 Memoria 2 mg/mL 9-20 Zeider mL, IVP, l injectable 21:12: Q8H, PRN, He rmann solution 09 30 mL, Nausea & Vomiting, Substituti on Allowed, SOLN Milk of Yes Bonnie Jyotsna 1.2 gm, 5 Memoria Magnesia 9-20 Zeider mL, PO, l 24% oral 21:12: Daily, [place] concentrate 02 PRN, 150 mL, Constipati on, Substituti on Allowed, Maintenanc e, CONC Prinivil 10 Yes Bonnie Jyotsna 10 mg, 1 Memoria mg oral 9-20 Zeider tab, PO, l tablet 21:11: QPM, 30 [place] 52 tab, Substituti on Allowed, TAB Keppra [...] 1 Memoria 10 mg 9-20 Zeider supp, [place], l rectal 21:08: Bedtime, Jorge Alberto suppository 53 PRN, 30 supp, Constipati on, Substituti on Allowed, SUPP [place] 5/325 Yes Bonnie Jyotsna 1 tab, PO, Memoria oral tablet 9-20 Zeider Q4H, PRN, l 21:08: 30 tab, as [place] 50 needed for pain, Substituti on Allowed, Maintenanc e, TAB [place] Yes Bonnie Jyotsna 120 mg, 1 Memoria [...] tab, PO, l tablet 21:08: Q8H, 90 [place] 06 tab, Substituti on Allowed, TAB normal No Katie L 1,000 mL, M emoria saline 0.9% 02-18 Christianson Rate: 100 l IV 1,000 mL 16:29: ml/hr, Herm Infuse over: 10 hr, Route: IV, Total Volume: 1,000, Start date: 02/18/11 11:29:00, Duration: 30 day, Stop date: 03/20/11 11:28:00 potassium No 25 mEq, Memor ia bicarbonate 02-13 Substituti l 25 mEq oral 23:15: on Allowed [place] tablet, 20 effervescen t potassium No Mujahed [...] Mapa mL, Route: l 22:22: PO, Drug [place] 00 form: SUSP, ONCE, Start date: 02/11/11 [...] 02-11 Zeider tab, l 13:00: Route: PO, [place] Drug form: TAB, Daily, Start date: 02/11/11 8:00:00, Duration: 2 day, Stop date: 02/12/11 8:00:00 Fleet Enema 2010- No Skyler 133 ml, Memoria 02-10 Dean Route: [place], l 19:15: Joel Drug Form: Herm mercy 00 JEANNIE, ONCE, Start date: 02/10/11 14:15:00, Stop date: 02/10/11 14:15:00 bisacodyl No Skyler 10 mg, 1 M emoria 02-10 Dean supp, l 19:15: Joel Route: [place], Herm mercy Drug form: SUPP, ONCE, Start date: 02/10/11 14:15:00, Stop date: 02/10/11 14:15:00 dexamethaso No Bonnie Jyotsna 1 mg, 1 Memoria ne 02-09 Zeider tab, l 13:00: Route: PO, Drug form: TAB, BID, Start date: 02/09/11 8:00:00, Duration: 2 day, Stop date: 02/10/11 20:00:00 Xylocaine No Lam M 1 appl, Me moria Jelly 2% 02-08 [place] Route: l topical gel 21:04: TOP, Q6H, H ermann Drug form: applicator GEL PRN Pain, Start date: 02/08/11 16:04:00, Duration: 30 day, Stop date: 03/10/11 16:03:00 dexamethaso No Meilani H 1 mg, 1 Memoria ne 02-07 [place] tab, l 13:00: Route: PO, Drug form: TAB, TID, Start date: 02/07/11 8:00:00, Duration: 2 day, Stop date: 02/08/11 17:00:00 Prinivil 0 No Bonnie Jyotsna 10 mg, 1 Memoria 02-06 Zeider tab, l 22:00: Route: PO, Drug form: TAB, QPM, Start date: 02/06/11 17:00:00, Duration: 30 day, Stop date: 03/07/11 17:00:00 dexamethaso 2010-0 No Meilani H 2 mg, 1 Memoria ne 02-05 [place] tab, l 13:00: Route: PO, [place] 00 Drug form: TAB, TID, Start date: 02/05/11 8:00:00, Duration: 2 day, Stop date: 02/06/11 17:00:00 lisinopril 2010-0 No Bonnie Jyotsna 10 mg, 1 Memoria 02-04 Zeider tab, l 13:00: Route: PO, Jorge Alberto 00 Drug form: TAB, QPM, Start date: 02/04/11 8:00:00, Duration: 30 day, Stop date: 03/05/11 17:00:00 insulin 2010-0 No Mujahed M 8 unit, Dc moria 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 9-06 Alikhan 0.08 mL, l H 11:30: Route: Jorge Alberto 00 SUB-Q, Drug form: INJ, Before Breakfast, Start date: 02/04/11 6:30:00, Stop date: 03/05/11 6:30:00 insulin 2010-0 No Mujahed M 8 unit, Dc moria 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 9-06 Alikhan 0.08 mL, l H 02:00: Route: Jorge Alberto 00 SUB-Q, Drug form: INJ, Bedtime, Start date: 02/03/11 21:00:00, Stop date: 03/04/11 21:00:00 potassium 2010-0 No Darcy 40 mEq, 2 Memoria chloride 20 -05 Jeane tab, l mEq oral 19:29: Ayden Route: PO, [place] tablet, 00 Drug form: extended ERTAB, release ONCE, Start date: 02/03/11 14:29:00, Stop date: 02/03/11 14:29:00 potassium 2010-0 No Bonnie Jyotsna 40 mEq, 2 Memoria chloride 20 9-05 Zeider tab, l mEq oral 14:00: Route: PO, Her kaye tablet, 00 Drug form: extended ERTAB, release Daily, Start date: 02/03/11 9:00:00, Stop date: 03/05/11 8:00:00 dexamethaso 2010-0 No Meilani H 3 mg, 1.5 Memoria ne 02-03 [place] tab, l 13:00: Route: PO, [place] 00 Drug form: TAB, TID, Start date: 02/03/11 8:00:00, Duration: 2 day, Stop date: 02/04/11 17:00:00 insulin No Darcy 15 unit, Memoria 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 02-03 Jeane 0.15 mL, l H 05:00: Ayden Route: [place] SUB-Q, Drug form: INJ, Q24H, Start date: 02/03/11 0:00:00, Duration: 30 day, Stop date: 03/04/11 0:00:00 Keppra No Meilani H 500 mg, 1 M emoria 02-03 [place] tab, l 02:00: Route: PO, Jorge Alberto 00 Drug form: TAB, Q12H, Start date: 02/02/11 21:00:00, Duration: 30 day, Stop date: 03/04/11 9:00:00 hydrALAZINE No Daryc 25 mg, 1 Memoria 25 mg oral 02-01 Jeane tab, l tablet 22:00: Ayden Route: PO, H erm Drug form: TAB, BID, Start date: 02/01/11 17:00:00, Stop date: 03/03/11 8:00:00 heparin No Sky 5,000 Memoria 02-01 Mzee Rizvi unit, 1 l 21:00: mL, Route: Jorge Alberto SUB-Q, Drug form: INJ, Q8H, Start date: 02/01/11 16:00:00, Duration: 30 day, Stop date: 03/03/11 8:00:00 Kayexalate No Darcy 15 gm, 60 Memoria 02-01 Jeane mL, Route: l 18:19: Ayden PO, Drug Gerda nn 00 form: SUSP, [...] Duration: 30 day, Stop date: 03/02/11 9:00:00 [place] No Bonnie Jyotsna 120 mg, 2 Memoria [...] Memoria 02-01 Jeane 0.2 mL, l 05:00: Ayden Route: [place] 00 SUB-Q, Drug form: INJ, BID, Start [...] Jv 0.01 mL, l 22:22: Nur Route: [place] 00 SUB-Q, Drug form: SOLN, TID-Before Meals, [...] 01-31 Jv supp, l 22:22: Nur Route: AZ, Gerda nn 00 Drug form: SUPP, Bedtime, [...] 01-31 Zeider SUB-Q, l 22:00: Drug form: [place] 00 INJ, BID, Start date: 01/31/11 17:00:00, Duration: 30 day, Stop date: 03/02/11 9:00:00 metFORmin No Bonnie Jyotsna 500 mg, 1 Memoria 500 mg oral 01-31 Zeider tab, l tablet 21:00: Route: PO, Gerda nn 00 Drug form: TAB, Q8H, Start date: 01/31/11 16:00:00, Duration: 30 day, Stop date: 03/02/11 8:00:00 [place] 5/325 No Bonnie Jyotsna 1 tab, Memoria oral tablet 01-31 Zeider Route: PO, l 19:56: Drug Form: [place] 00 TAB, Q4H, PRN as needed for pain, Start date: 01/31/11 14:56:00, Duration: 30 day, Stop date: 03/02/11 14:55:00 bisacodyl No Bonnie Jyotsna 10 mg, Memoria 01-31 Zeider Route: AZ, l 19:56: Drug form: Jorge Alberto 00 [...] PO, l mg oral 17:52: BID, 60 [place] capsule 54 cap, Substituti on Allowed, CAP dexamethaso Yes Bonnie Jyotsna 4 mg, 1 Memoria ne 4 mg 01-31 Zeider tab, PO, l oral tablet 17:52: Q6H-02, 60 Jorge Alberto 42 tab, Substituti on Allowed, TAB bisacodyl Yes Bonnie Jyotsna 10 mg, 1 Memoria 10 mg 01-31 Zeider supp, [place], l rectal 17:52: Daily, [place] suppository 36 PRN, 60 supp, Constipati on, Substituti on Allowed, SUPP [place] Yes Bonnie Jyotsna 1 tab, PO, Memoria oral tablet 01-31 Zeider Q4H, PRN, l 17:52: 60 tab, [place] 26 Headache, Substituti on Allowed, Maintenanc e, TAB [place] No Abel 1 tab, M emoria oral tablet 01-30 Howard Route: PO, l 20:44: Bonner Drug Form: Berto n 00 TAB, Q4H, PRN Headache, Start date: 01/30/11 15:44:00, Duration: 30 day, Stop date: 03/01/11 15:43:00 dexamethaso No Katie L 4 mg, 1 Memoria ne 01-29 Christianson tab, l 17:00: Route: PO, [place] 00 Drug form: TAB, Q6H-02, Start date: 01/29/11 12:00:00, Stop date: 02/28/11 6:00:00 insulin No Memo 20 unit, 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 01-29 Omidvar 0.2 mL, l H 13:00: Route: [place] 00 SUB-Q, Drug form: INJ, Q8H, Start [...] Route: l oral syrup 02:00: JATIN, Drug Her restrepo 00 form: SYRP, Q12H, [...] 1,000 mL 22:48: George ml/hr, Her restrepo Infuse over: 20 hr, Route: IV, Total [...] Ollie Rizvi tab, l 21:00: Route: PO, [place] 00 Drug form: TAB, Q4H, Start date: [...] ne 01-26 Route: l 17:00: IVP, Q6H, [place] 00 Start date: 01/26/11 12:00:00, Duration: 30 day, Stop date: 02/25/11 6:00:00 mannitol No Isabel 75 gm, 375 Me moria 01-26 Manasa mL, Route: l 17:00: Christian IVPB, Drug Herm mercy form: INJ, Q6H, Start date: 01/26/11 12:00:00, Duration: 30 day, Stop date: 02/25/11 6:00:00 mannitol No Imoigele P 75 gm, 375 Memoria 28 Aisiku mL, Route: l 15:00: IVPB, Drug Jorge Alberto form: INJ, ONCE, Start date: 01/26/11 10:00:00, Stop date: 01/26/11 10:00:00 potassium 2010-0 No Miles D 36 mmol, M emoria phosphate - Christian 12 mL, l 08:29: Route: Jorge Alberto 00 IVPB, On Adm, Start date: 01/26/11 3:29:00, Duration: 1 doses or times, Stop date: 01/26/11 8:00:00 mannitol 2010-0 No Odell Voda 50 gm, Mem oria 8- Route: l 22:50: IVPB, [place] 00 ONCE, Start date: 01/25/11 17:50:00, Stop date: 01/25/11 17:50:00 heparin No Sky 5,000 Memoria 8-27 ee Rizvi unit, 1 l 21:00: mL, Route: Jorge Alberto 00 SUB-Q, Drug form: INJ, Q8H, Start date: 01/25/11 16:00:00, Duration: 30 day, Stop date: 02/24/11 8:00:00 sodium 2010- Yes Miles D 15 mmol, 5 Me moria phosphate 01-25 Christian mL, Route: l 13:20: IV, ONCE, Start date: 01/25/11 8:20:00, Stop date: 01/25/11 8:20:00 sodium 2010-0 No Miles D 15 mmol, Kalia aida phosphate - Christian Route: l 11:44: IVPB, PRN, PRN Abnormal Lab Result, Start date: 01/25/11 6:44:00, Duration: 30 day, Stop date: 02/24/11 6:43:00 magnesium 2010-0 No Miles D 4 gm, 100 Memoria sulfate 8- Christian mL, Route: l 11:44: IVPB, Drug [...] unit + 04:59: TITRATE, Jorge Alberto Sodium 00 Route: IV, Chloride Total 0.9% IV 99 Volume: mL 100, Start date: 01/24/11 23:59:00, Duration: 30 day, Stop date: 02/23/11 23:58:00 Dextrose No Miles D 12.5 gm, Me moria 50% Syringe 01-25 Christian 25 mL, l 04:41: Route: [place] IVP, Drug Form: INJ, PRN, PRN Abnormal [...] Srikanth Reeses Route: IV, l 02:00: Q12H, [place] 00 Start date: 01/24/11 21:00:00, Duration: 30 day, Stop date: 02/23/11 9:00:00 famotidine No Juan J 20 mg, 2 M emoria 01-25 Srikanth Boss mL, Route: l 02:00: IV, Drug form: INJ, Q12H, Start date: 01/24/11 21:00:00, Stop date: 02/23/11 9:00:00 propofol 10 No Isabel 1,000 mg, Memoria mg/ml 01-25 Manasa 100 mL, l (titrate) 01:56: Christian Rate: Herm mecry 1,000 mg 00 Titrate as directed, Route: IV, Total Volume: 100 ml, Start date: 01/24/11 20:56:00, Duration: 30 day, Stop date: 02/23/11 20:55:00, Replace Every: 12 hr chlorhexidi No Roopa Tatyana 15 ml, Memoria ne topical 01-25 Ryan Route: l 0.12% 01:00: S&SPIT, [place] liquid 00 Q4H, Drug form: LIQ, Start [...] Route: l 14:00: IVPB, Drug form: INJ, OHVS09X, Start date: 01/24/11 9:00:00, Duration: 30 day, [...] 80 mg, 2 Me moria oral tablet 8 tab, PO, l 00:20: Daily, 30 Jorge [...] Jorge Alberto jimenez 06 Substituti on Allowed [place] Yes Bonnie Goyal 1 tab, PO, Memoria Thyroid 120 8-25 Zeider Daily, 30 l mg oral 19:28: tab, [place] tablet 50 Substituti on Allowed, TAB docusate No Roopa Tatyana 100 mg, 1 Memoria 8-25 Ryan cap, l 14:00: Route: PO, Jorge Alberto 00 Drug form: CAP, BID, Start date: 01/23/11 9:00:00, Stop date: 02/21/11 17:00:00 Senna 8.6 2010- No Gideon 8.6 mg, 1 Memoria mg oral 01-23 Jv tab, l tablet 14:00: Nur Route: [...] 01-23 Day 10 mL, l 13:30: Route: 00 IVPB, ONCE, Start date: 01/23/11 8:30:00, Stop date: 01/23/11 8:30:00 magnesium 2010- No Ramos L 2 gm, 50 Memoria sulfate 01-23 Day mL, Route: l 13:20: IVPB, Drug form: INJ, Q2H, Start date: 01/23/11 8:20:00, Duration: 2 doses or times, Stop date: 01/23/11 10:00:00 dexamethaso 2010- No Miles D 4 mg, 1 Memoria [...] Rizvi mL, Route: l 10:22: IVP, Drug [place] form: INJ, Q4H, PRN Pain Score 4-6, [...] 30 day, Stop date: 02/22/11 5:13:00 Dextrose 2010-0 No Gideon 6.25 gm, Me moria 50% Syringe 8-25 Vj 12.5 mL, l 10:14: Nur Route: Jorge [...] 8-25 Jv supp, l 10:14: Nur Route: [place], Gerda nn 00 Drug form: SUPP, Daily, PRN Constipati on, Start date: 01/23/11 5:14:00, Duration: 30 day, Stop date: 02/22/11 5:13:00 acetaminoph No Gideon 650 mg, 2 Memoria en 8-25 Jv tab, l 10:14: Nur Route: PO, Gerda nn Drug form: [...] Memoria 8-25 Jv mL, Route: l 10:14: Nur [...] Comments Source Systolic blood 2020-03-27 144 mm[Hg] [facility] 12:12:00 [place] [facility] Diastolic blood 2020-03-27 64 mm[Hg] [facility] pressure 12:12:00 [place] [facility] Body temperature 2020-03-27 97.5 [degF] [facility] 12:12:00 [place] [facility] Heart Rate 2020-03-27 84 /min [facility] 12:12:00 [place] [facility] Respiratory rate 2020-03-27 18 /min [facility] 12:12:00 [place] [facility] Respitory Rate 2020-02-27 [facility] 18:00:00 Systolic (mm Hg) 2020-02-27 [facility] rmann 18:00:00 Diastolic (mm Hg) 2020-02-27 [facility] ermann 18:00:00 Respitory Rate 2020-02-27 [facility] mercy 17:00:00 Respitory Rate 2020-02-27 [facility] mercy 16:00:00 Systolic (mm Hg) 2020-02-27 [facility] rmann 14:00:00 Diastolic (mm Hg) 2020-02-27 [facility] ermann 14:00:00 Systolic (mm Hg) 2020-02-27 [facility] rmann 12:00:00 Diastolic (mm Hg) 2020-02-27 [facility] ermann 12:00:00 Temperature Oral 2020-02-23 98.4 F [facility] rmann (F) 01:00:00 Temperature Oral 2020-02-22 98.8 F [facility] rmann (F) 21:35:00 Temperature Oral 2020-02-22 96.8 F [facility] rmann (F) 18:00:00 Respitory Rate 2020-02-20 [facility] 07:00:00 Respitory Rate 2020-02-20 [facility] 06:00:00 Temperature Oral 2020-02-20 98 F [facility] rmann (F) 05:00:00 Respitory Rate 2020-02-20 [facility] 05:00:00 Systolic (mm Hg) 2020-02-20 [facility] rmann 05:00:00 Diastolic (mm Hg) 2020-02-20 [facility] ermann 05:00:00 Systolic (mm Hg) 2020-02-20 [facility] He rmann 03:00:00 Diastolic (mm Hg) 2020-02-20 [facility] ermann 03:00:00 Temperature Oral 2020-02-20 97.4 F [facility] rmann (F) 01:00:00 Systolic (mm Hg) 2020-02-20 [facility] rmann 01:00:00 Diastolic (mm Hg) 2020-02-20 [facility] ermann 01:00:00 Temperature Oral 2020-02-16 98 F [facility] rmann (F) 21:00:00 Heart Rate 2020-02-16 [facility] 12:[facility]00 [facility] 2020[facility]02[facility] 09[facility]32[facility]00 Heart [facility] 2020-02-16 [facility] 05:09:00 Height 2020-02-15 149.86 [facility] 22:43:00 Weight 2020-02-15 [facility] 22:43:00 BMI Calculated 2020-02-15 [facility] mercy 22:43:00 Systolic blood 2020-02-15 136 mm[Hg] [facility] - pressure 13:00:00 [facility] [place] Diastolic blood 2020-02-15 63 mm[Hg] [facility] - pressure 13:00:00 [facility] [place] Heart rate 2020-02-15 71 /min [facility] 13[facility] Body temperature 2020-02-[address] [facility] - 13:00:00 [facility] Respiratory rate 2020-02-15 18 /min [facility] - 13:00:00 [facility] Oxygen saturation 2020-02-15 96 /min [facility] in Arterial blood 13:00:00 Medical nter by Pulse oximetry Body height 2020-02-[address] [facility] - 22:11:00 Medical Center Body weight 2020-02-11 84.505 kg [facility] - 22:11:00 [facility] BMI 2020-02-11 37.63 kg/m2 [facility] - 22:11:00 [facility] Heart Rate 2019-12-20 [facility] n [...] Temperature Oral 2019-11-24 99.0 F [facility] rmann (F) 12:57:00 Height 2019-11-23 149.86 cm [facility] 07:25:00 Weight 2019-11-23 [facility] 07:25:00 BMI Calculated 2019-11-23 [facility] 07:25:00 Temperature Oral 2019-11-22 97.4 F [facility] r[facility] (F) 14:53:00 Temperature Oral 2019-11-22 97.9 [...] Physician s Height 2019-05-05 59 [in_us] [facility] 11:26:00 [place] [facility] Temperature 2019-05-05 98.5 [degF] [facility] 11:26:00 [place] [facility] Temperature Oral 2019-03-04 [...] s Temperature 2019-01-25 98.3 [degF] [facility] 08:41:00 [place] [facility] Temperature Oral 2019-01-10 [...] Berto n 17:22:00 Height 2018-12-27 152.4 cm Jan Connoran n 13:30:00 Weight 2018-12-24 Jan Connoran n 23:49:00 BMI Calculated 2018-12-24 [facility] [...] 12:44:00 BP Systolic 2018-11-11 149 mm[Hg] Location: [facility] 12:31:00 Position: [place] [facility] Sitting BP Diastolic 2018-11-11 65 mm[Hg] Location: [facility] 12:31:00 Position: [place] [facility] Sitting Height 2018-11-11 59 [in_us] [facility] 12:31:00 [place] [facility] Weight 2018-11-11 213 [lb_av] [facility] 12:31:00 [place] [facility] Body Mass Index 2018-11-11 43.02 kg/m2 [facility] o f Calculated 12:31:00 [place] [facility] Temperature 2018-11-11 97.6 [degF] Method: Oral [facility] 12:31:00 [place] [facility] Heart Rate 2018-11-11 74 /min Location: [facility] 12:31:00 Apical; [place] [facility] BP Systolic 2018-10-14 164 mm[Hg] Location: [facility] 12:27:00 Position: [place] [facility] Sitting BP Diastolic 2018-10-14 68 mm[Hg] Location: [facility] 12:27:00 Position: [place] [facility] Sitting Height 2018-10-14 59 [in_us] [facility] 12:27:00 [place] [facility] Weight 2018-10-14 215 [lb_av] [facility] 12:27:00 [place] [facility] Body Mass Index 2018-10-14 43.43 kg/m2 University o f Calculated 12:27:00 [place] [facility] Temperature 2018-10-14 98.5 [degF] Method: Oral [facility] 12:27:00 [place] [facility] Heart Rate 2018-10-14 84 /min Location: [facility] 12:27:00 Apical; [place] [facility] Systolic [...] 23:07:00 BP Systolic 2018-09-21 136 mm[Hg] Location: [facility] [place]; [facility] 11:28:00 [place] [facility] BP Diastolic 2018-09-21 88 mm[Hg] Location: [facility] 11:28:00 [place] [facility] Height 2018-09-21 59 [in_us] [facility] 11:28:00 [place] [facility] Weight 2018-09-21 205 [lb_av] [facility] 11:28:00 [place] [facility] Body Mass Index 2018-09-21 41.41 kg/m2 University o f Calculated 11:28:00 [place] [facility] Temperature 2018-09-21 96.8 [degF] Method: Oral [facility] 11:28:00 [place] [facility] Heart Rate 2018-09-21 84 /min Location: [facility] 11:28:00 Apical; [place] [facility] Temperature [...] H ermann 08:00:00 Height 2018-09-15 149.86 cm Jan Berto n 13:11:00 Height 2018-09-15 149.86 cm [...] rmann 00:50:00 Diastolic (mm Hg) 2018-08-20 [facility] 00:50:00 Respitory Rate 2018-08-20 [facility] 00:50:00 Temperature Oral 2018-08-20 98.0 F [facility] rmann (F) 00:50:00 Temperature Oral 2018-08-19 97.9 F [facility] rmann (F) 20:51:00 Respitory Rate 2018-08-19 [facility] 19:00:00 Temperature Oral 2018-08-19 97.8 F [facility] rmann (F) 17:23:00 Systolic (mm Hg) 2018-08-19 [...] 10:15:00 Temperature Oral 2011-03-07 98.4 F [facility] r[facility] (F) 10:15:00 Diastolic (mm Hg) 2011-03-07 [...] 18:09:00 Temperature Oral 2011-02-26 98.9 F [facility] rmann (F) 12:09:00 Heart Rate 2011-02-26 [...] n 03:09:00 Temperature Oral 2011-02-19 97.5 F [facility] rmann (F) 03:09:00 Diastolic (mm Hg) 2011-02-18 [facility] ermann 20:00:00 Temperature Oral 2011-02-18 98.4 F [facility] rmann (F) 20:00:00 Heart Rate 2011-02-18 [facility] n 20:00:00 Respitory Rate 2011-02-18 [facility] 20:00:00 Systolic (mm Hg) 2011-02-18 [facility] 20:00:00 Height 2011-01-31 149.86 cm [facility] Berto n 22:02:00 Weight 2011-01-31 [facility] 22:02:00 Systolic (mm Hg) 2011-01-31 [facility] rmann 12:46:00 Diastolic (mm Hg) 2011-01-31 [facility] ermann 12:46:00 Peripheral Pulse 2011-01-31 [facility] Rate 12:46:00 Respitory Rate 2011-01-31 [facility] 12:46:00 Temperature Oral 2011-01-31 98.5 F [facility]th rmann (F) 12:46:00 Peripheral Pulse 2011-01-31 [facility] rmann Rate 11:21:00 Systolic (mm Hg) 2011-01-31 [facility] 11:21:00 Diastolic (mm Hg) 2011-01-31 [facility] ermann 11:21:00 Diastolic (mm Hg) 2011-01-31 [facility] ermann 10:58:00 Peripheral Pulse 2011-01-31 [facility] rmann Rate 10:58:00 Systolic (mm Hg) 2011-01-31 [facility] 10:58:00 Respitory Rate 2011-01-31 [facility] 10:35:00 Temperature Oral 2011-01-31 97.8 F [facility] rmann (F) 10:35:00 Respitory Rate 2011-01-31 [facility] 08:28:00 Temperature Oral 2011-01-31 98.1 F [facility] rmann (F) 08:28:00 Height 2011-01-23 149.86 cm [facility] n :37:00 [facility] 2011[facility]01-23 [facility] Procedures Procedure Date / Time Performing Source Performed Clinician [QL] CBC (INCLUDES DIFF/PLT) 2020-03-27 [facility] 00:00:00 Physicians REPORT OF PROCEDURE - 2020-02-22 Provider, Jane Reyes ukes - ENDOSCOPY SCAN 17:13:37 Scanning [facility] POCT-GLUCOSE METER 2020-02-[address] [facility] - 13:09:00 Medical Center POCT-GLUCOSE METER 2020-02-[address] [facility] - 08:38:00 [facility] CBC W/PLT COUNT & AUTO 2020-02-15 Francisco Leonardo Dylan [facility] - DIFFERENTIAL 04:38:00 [facility] POCT-GLUCOSE METER 2020-02-[address] [facility] - 21:04:00 [facility] POCT-GLUCOSE METER 2020-02-[address] [facility] - 18:04:00 [facility] URINE CULTURE 2020-02-[address] [facility] - 15:04:00 [facility] URINALYSIS W/ REFLEX URINE 2020-02-[address] [facility] - CULTURE 15:04:00 [facility] POCT-GLUCOSE METER 2020-02-14 Philippe Shirley Khan [facility] - 12:17:00 [facility] POCT-GLUCOSE METER 2020-02-[address] [facility] - 11:51:00 [facility] XR ESOPH SWALLOW FUNCTION 2020-02-[address] [facility] - W/CINE VIDEO 10:24:00 [facility] CBC W/PLT COUNT & AUTO 2020-02-14 Francisco Leonardo [facility] - DIFFERENTIAL 04:24:00 [facility] POCT-GLUCOSE METER 2020-02-[address] [facility] - 22:29:00 Medical Center POCT-GLUCOSE METER 2020-02-[address] [facility] - 17:26:00 [facility] XR CHEST 2 VIEWS 2020-02-13 Philippe Shirley Khan [facility] - 12:01:00 [facility] POCT-GLUCOSE METER 2020-02-[address] [facility] - 08:03:00 [facility] POCT-GLUCOSE METER 2020-02-[address] [facility] - 22:59:00 [facility] POCT-GLUCOSE METER 2020-02-[address] [facility] - 17:20:00 [facility] XR CHEST 1 VIEW 2020-02-[address] [facility] - PORTABLE/BEDSIDE 12:43:00 [facility] POCT-GLUCOSE METER 2020-02-[address] [facility] - 12:06:00 [facility] TSH/FREE T4 IF INDICATED 2020-02-12 Francisco [facility] 10:54:00 [facility] VITAMIN B12 2020-02-12 Malissa Francisco Formano [facility] - 10:54:00 [facility] LACTATE DEHYDROGENASE (LDH) 2020-02-12 [address] [facility] - 10:54:00 [facility] CREATINE KINASE (CK) 2020-02-12 Malissa Francisco Richardson [facility] - 10:54:00 [facility] COMPREHENSIVE METABOLIC PANEL 2020-02-12 Malissa Francisco Richardson [facility] - 10:54:00 [facility] POCT-GLUCOSE METER 2020-02-[address] [facility] - 09:36:00 [facility] CBC W/PLT COUNT & AUTO 2020-02-12 Francisco Leon[address] [facility] - DIFFERENTIAL 08:49:00 [facility] SARS-COV2/RT-PCR ([facility] & REF 2020-02-12 Nalam, Susy Socorro [facility] LAB[facility]) 03:39:00 [facility] Transcatheter retrieval, 2019-02-21 Feli Azul percutaneous, of 20:58:00 intravascular foreign body (eg, fractured venous or arterial catheter), includes radiological supervision and interpretation, and imaging guidance (ultrasound or fluoroscopy), when performed [place] Insertion 2019-01-28 [facility] 00:00:00 Physicians XRAY Chest 2 views [id number] 2018-11-12 [facility] 00:00:00 Physicians IVIG Infusion Therapy 2018-11-11 [facility] 00:00:00 Physicians [QLH] CBC (INCLUDES DIFF/PLT) 2018[facility]11[facility]11 [facility] [QLH] CMP W/EGFR 2018-11-[address] [facility] [place] [place] 00:00:00 Physicians MA Bone Density Scan [id number] 2018-10-14 [facility] 00:00:00 Physicians Selective catheter placement, 2018-08-19 Dc morial Jorge Alberto vertebral artery, unilateral, 13:02:00 with angiography of the ipsilateral vertebral circulation and all associated radiological supervision and interpretation, includes angiography of the cervicocerebral arch, when performed Insertion or Replacement of 2011-01-26 Kalia rial [place] Skull Tongs or Halo Traction 05:00:00 Device Other Excision or Destruction 2011-01-26 Dc morial Jorge Alberto of Lesion or Tissue of Brain 05:00:00 Excision of Lesion or Tissue 2011-01-24 [facility] orial [place] of Cerebral Meninges 05:00:00 Intracranial Pressure 2011-01-24 [facility] Monitoring 05:00:00 Transfusion of Packed Cells 2011-01-24 Kalia rial [place] 05:00:00 History of [facility] [place] Ventriculoperitoneal shunt Physi cians creation Cervical laminectomy [facility] section [facility] n Resection [facility] Shunt construction [facility] Tonsillectomy [facility] Plan of Care Planned Activity Planned Date Details Comments Source Future Scheduled 2027-02-[address] [facility] Test 00:00:00 malignant neoplasm Medical C enter of colon (procedure) [code = 883703365] Future Scheduled 2020-06-[address] [facility] - Test 00:00:00 (12+) [code = [facility] DEPRESSION SCREENING (12+)] Future Scheduled 2020-04-03 [QL] CBC (INCLUDES Unive [...] Pending 00:00:00 DIFF/PLT) [code = Dates Schedule: Dougie Caballero hysicirosario [QL] CBC (INCLUDES 04/03/2020, DIFF/PLT)] 04/10/2020 ... Future Scheduled 2020-01-[address] [facility] - Test 00:00:00 (#1) [code = Medical Center INFLUENZA VACCINE (#1)] Diagnostic Test 2018-11-12 XRAY Chest 2 views Univer sity of Pending 00:00:00 [id number] [code = 52182] [place] [facility] Future Scheduled 2014-06-[address] [facility] - Test 00:00:00 WELLNESS (YEAR 2 or Medical Center FIRST YEAR if no IPPE) [code = MEDICARE ANNUAL WELLNESS (YEAR 2 or FIRST YEAR if no IPPE)] Future Scheduled 2012-01-10 PNEUMOCOCCAL 65+ Y[facility] - Test 00:00:00 (1 of 1 - Medical Center [id number]) [code = PNEUMOCOCCAL 65+ YRS (1 of 1 - [id number] PCV13)] Future Scheduled 1963 HEPATITIS C [facility] 00:00:00 SCREENING [code = Medical nter HEPATITIS C SCREENING] Future Scheduled 1954 DTAP/TDAP/TD [facility] 00:00:00 VACCINES (1 - Tdap) [facility] [code = DTAP/TDAP/TD VACCINES (1 - Tdap)] Future Scheduled [address] [facility] 00:[facility]:00 malignant neoplasm Medical C enter of breast (procedure) [code = 820305660] Encounters Start End Encounter Admission Attending Care Care Encounter Source Date/Time Date/Time Type Type Clinicians Facility Department ID 2020-02-15 Inpatient U [facility] [id number] [facility] H 16:11:00 2019-02-05 Inpatient U [facility] [id number] MH H 08:54:00 2018-12-24 Inpatient U [facility] [id number] [facility] H 18:32:00 2018-08-16 Inpatient E [facility] [id number] [facility] H 23:35:00 2020-07-19 2020-07-[address] [facility] [id number] 00:00:00 00:00:00 Tj Howard 350.1.13.[address] [place] [address] [facility] [id number] [facility] 2020-06-26 2020-06-26 Appointmen NIRALI DRAKE Neurology - [id number] [facility] 11:00:00 11:00:00 t; Cheko CORRIGAN [place] [facility] Dougie [facility]IGAN M.D. [facility] ans 2020-06-04 2020-06-04 Emergency [facility] [id number] 00:45:00 04:53:00 Chel Howard 350.1.13.10 [place] 4.2.7.2.686 [facility] [id number] 2020-06-02 2020-06-02 [facility] 1.2.840.114 [id number] 20:01:00 23:09:00 Chel Howard 350.1.13.10 [place] 4.2.7.2.686 [facility] [id number] 2020-05-30 2020-05-30 Transition Dacia Joshua 1.2.840.114 [id number] 00:00:00 00:00:00 of Care Veronica Herrera 350.1.13.10 [place] 4.2.7.2.686 [id number] [facility] 2020-05-27 2020-05-28 Emergency Gregorio Araujo [facility] 1.2.840. 114 [id number] 15:47:00 19:03:00 Rima Jim 350.1.13.10 [place] 4.2.7.2.686 [facility] [id number] 2020-03-27 2020-03-27 Appointmen NIRALI DRAKE Neurology - [id number] [facility] 11:30:00 11:30:00 t; Cheko [facility]IGAN [place] [facility]ie [facility] M.D. [facility] ci ans 2020-02-15 2020-02-27 Outpatient Lamont [facility] [id number] 16:11:00 14:07:00 Clovis Matute 2020-02-15 2020-02-15 Outpatient Hellen, [facility] [id number] 16:11:00 16:11:00 David Suresh 2020-01-05 2020-01-05 Outpatient Rebecca, [facility] [id number] 11:40:00 23:59:00 Andre Kaur 05 2020-01-05 2020-01-[address] [facility] [id number] Univers 10:00:00 10:00:00 t; Cheko CORRIGAN [place] Cheko CORRIGAN Physi ci ans 2019-11-22 2019-12-20 Outpatient Nikunj [facility] [id number] 05:06:00 15:30:00 [facility] Saleem Estella 2019-11-22 2019-12-20 Outpatient Nikunj [facility] [id number] 05:06:00 15:30:00 Ars 75 Estella 2019-11-29 2019-11-[address] [facility] [id number] Univers 11:00:00 11:00:00 t; Cheko CORRIGAN [place] Cheko CORRIGAN Physi ci ans 2019-11-22 2019-11-22 Outpatient Nikunj [facility] [id number] 05:06:00 05:06:00 [facility] 2019-11-22 2019-11-22 Outpatient [facility] [id number] 05:06:00 05:06:00 Saleem Perry 2019-11-22 2019-11-22 Outpatient Osvaldo [facility] [id number] 05:06:00 05:06:00 Saleem Perry 2019-11-22 2019-11-22 Inpatient E [facility] [id number] [facility] 12:06:00 03:48:00 2019-05-05 2019-05-05 NIRALI Olson Neurology - [id number] [facility] 11:30:00 11:30:00 t; Cheko CORRIGAN [place] [facility] Dougie CORRIGAN M.D. [facility] ci ans 2019-02-05 2019-03-04 Outpatient Hernán [facility] [id number] 08:54:00 18:18:00 Jai Perez 2019-01-25 2019-01-25 NIRALI Olson Neurology - [id number] [facility] 08:00:00 08:00:00 t; [facility] Dougie CORRIGAN M.D. [facility] ci ans 2018-12-24 2019-01-10 Outpatient Lyric [facility] [id number] 18:32:00 15:53:00 Reji 2018-11-29 2018-11-29 Outpatient Stan [facility] [id number] 07:33:57 12:20:00 Abel Vizcaino 2018-11-29 2018-11-29 [facility] [id number] [facility] 07:33:00 07:33:00 2018-11-18 2018-11-18 Outpatient Noelle LANETTEP OIP [id number] 09:50:00 23:59:00 [place] 2018-11-11 2018-11-[address] [facility] Neurology - [id number] [facility] 11:00:00 11:00:00 t; Cheko CORRIGAN [place] [facility] Dougie CORRIGAN M.D. [facility] ans 2018-10-21 2018-10-21 Outpatient CEZAR DrakeP OIP [id number] 10:21:00 23:59:00 [place] 2018-10-14 2018-10-[address] [facility] Neurology [id number] Univers 11:30:00 11:30:00 t; [facility] Physi ci ans 2018-09-21 2018-09-23 Outpatient Hellen [facility] [id number] 18:06:00 16:20:00 David Jacobo 2018-09-21 2018-09-23 Outpatient Hellen [facility] [id number] 18:06:00 16:20:00 David Jacobo 13 2018-09-21 2018-09-21 Outpatient U [facility] [id number] [facility] 18:06:00 18:06:00 2018-09-21 2018-09-21 Appointrick DRAKE [facility] [id number] Univers 10:30:00 10:30:00 t; Cheko CORRIGAN [facility] ans 2018-09-12 2018-09-20 Outpatient Smart, [facility] [id number] 15:01:00 16:23:00 Sean 01 Luis 2018-09-12 2018-09-10 Inpatient U [facility] [id number] 15:01:00 00:20:00 2018-09-09 2018-09-09 Outpatient Okpara, [facility] [id number] 11:57:00 22:17:00 Sadi N 00 2018-09-09 2018-09-08 Inpatient U [facility] [id number] [facility] 11:57:00 09:51:00 [facility] 2018-08-16 2018-08-19 Outpatient Zbigniew, [facility] [id number] 15:03:00 21:09:00 Sean 05 Luis 2018-08-16 2018-08-17 Outpatient MHMISCHER MHMISCHER [id number] 10:11:00 23:59:59 00 Results Test Description Test [...] code = MCH) 24.1 pg 27.0-31.0 [facility] ObvozkyPPJDLEKSGL2470-85-40 05:52:0030.9[facility] HermannHEMATOLOGY 2020-02-27 05:52:0020.2[facility] LdxycguNVBJAGDREN5255-21-29 05:52:15784Crsixyyt CjdgyflTWYFCVYBKK4093-07-57 05:52:009.5[facility] UbyjbhtXWWHYRUHMG5756-33-69 05:52:0078.2[facility] KaqumftTPXNACFPVG0123-50-89 05:52:0015.4[facility] GUORSTPMJY0465-82-15 05:52:005.7[facility] TtkjuydYIPIDHOHOC4810-55-06 05:52:000.3 [facility] YsyvrrlIDCJZLLAUX7209-15-77 05:52:000.4[facility] HermannHEMATOLOGY 2020-02-27 05:52:0014.9[facility] DjspktmROLCUWOOBR6875-45-83 05:52:002.9[facility] VxrmxkmEIWZJEHGOL0334-31-37 05:52:001.1[facility] QaygvlvBOEQSCFQXS8761-85-90 05:52:000.1[facility] WwyubtxAXABWODCOJ4602-58-32 05:52:000.1[facility] JBHPTAYMBQ1262-34-56 05:52:001+ *ABN*(02/27/20 12:52 AM)[facility] PARATHYROID ZMOXDEL5276-72-52 05:52:001.22[facility] HermannPARATHYROID PROFILE 2020-02-27 05:52:001.20[facility] HermannCHEM FIXZS4320-30-64 06:07:002.1[facility] HermannCHEM QQTTW7434-57-52 06:07:45610Xxudoflq HermannCHEM BSOJM9327-88-05 06:07:0014[facility] HermannCHEM BHMOW8746-61-17 06:07:000.74[facility] HermannCHEM YORJC5320-15-99 06:07:20485Paowjflq HermannCHEM OQBPW7900-39-52 06:07:004.3 [facility] HermannCHEM DBTOQ1147-22-59 06:07:99673Shjbszfx HermannCHEM PANEL 2020-02-26 06:07:0023[facility] HermannCHEM YSZSK4922-02-90 06:07:008.7[facility] HermannCHEM KKYMU2792-20-17 06:07:0010.3[facility] HermannCHEM DDYKU1104-44-58 06:07:0080[facility] HermannCHEM SULWN1391-79-49 06:07:002.7[facility] EOBCTJLSRM9505-05-84 06:07:0084.4[facility] LroawdxSODGEWQWUL5684-52-78 06:07:00 10.8[facility] KlmpyawVCXMOMZHGK1972-61-05 06:07:004.4[facility] HermannHEMATOLOGY 2020-02-26 06:07:000.1[facility] KrmgkstPTNPQKDTPH4267-91-71 06:07:000.3[facility] IvisidrPTTPEUOVDC6965-94-19 06:07:0014.3[facility] CyqrxugDYNCLGCLNH5272-48-07 06:07:001.8[facility] QbnwjslPMYCAZBTMZ5789-69-98 06:07:000.7[facility] AXTGNYNMZR6682-34-31 06:07:001+ *ABN*(02/26/20 1:07 AM)[facility]annHEMATOLOGY 2020-02-26 06:07:0016.9[facility] JssrvvhTIXBNKPUKE7957-37-76 06:07:003.72[facility] XuxrttjJSMTFIHHVV4877-06-98 06:07:009.0[facility] SqihvvdCSPZZLLZBG6686-70-69 06:07:0029.3[facility] MvvmedkDHONPTNXVB7836-30-47 06:07:0078.8[facility] AWIWEUTZPA1579-62-33 06:07:00 Test Item Value Reference Range Interpretation Comments MCH (test code = MCH) 24.1 pg 27.0-31.0 [facility] TctjeyqKMNEFJYSQC9477-95-53 06:07:0030.6[facility] HermannHEMATOLOGY 2020-02-26 06:07:0019.6[facility] TsozgfvUDYIVWNJQG0033-64-55 06:07:0098[facility] OrgfpfaBQPIZGFTBP8394-48-13 06:07:0010.1[facility] HermannPARATHYROID PROFILE 2020-02-26 06:07:001.18[facility] HermannPARATHYROID OJCTNYP1821-29-70 06:07:00 1.17[facility] HermannCHEM PGGBJ9132-31-49 08:30:56241Ognjwuxl HermannCHEM PANEL 2020-02-25 08:30:0016[facility] HermannCHEM HIYJJ7526-14-35 08:30:000.75[facility] HermannCHEM HIQPB4068-20-12 08:30:54212Cuavopny HermannCHEM UAMJZ2220-03-73 08:30:004.1[facility] HermannCHEM DIIPJ2928-22-76 08:30:78857Kseekwoi HermannCHEM WLAJT1847-20-77 08:30:0024[facility] HermannCHEM CJSSR5770-98-90 08:30:009.0 [facility] HermannCHEM IHMML6142-28-76 08:30:0012.1[facility] HermannCHEM PANEL 2020-02-25 08:30:0080[facility] HermannCHEM BYKZJ6664-03-03 08:30:001.9[facility] HermannCHEM JVDLN9436-67-52 08:30:002.6[facility] RpdsximXOFOWZWSAG6115-35-82 08:30:74158Okohqnip UucpgncMSGWUFJRYH2887-62-75 08:30:0084.7[facility] IMVJLSQSIB7197-75-71 08:30:0010.5[facility] CdtgfcrWESKHCXAZL4539-02-75 08:30:00 4.5[facility] MytcrfkAPHZKYFVOB9724-92-06 08:30:000.1[facility] HermannHEMATOLOGY 2020-02-25 08:30:000.2[facility] TpwotfxRIKZDJIMUP7383-54-35 08:30:0015.2[facility] MrhgoikKOFKFJSBPY6679-96-95 08:30:001.9[facility] ZdsveoqZBEFWEERKB0669-87-25 08:30:000.8[facility] LqlhnpmVBSJWIDMGW5313-90-78 08:30:001+ *ABN*(02/25/20 3:30 AM)[facility] SkegfzdATQRUZHRUI1745-51-16 08:30:0017.9[facility] HermannHEMATOLOGY 2020-02-25 08:30:003.96[facility] XtgugmsMMJICZTAMR5748-74-22 08:30:009.6[facility] OrpirlyZIZXCCFILV9260-21-27 08:30:0031.0[facility] EthvmzwYKQNDPZRZK6509-22-73 08:30:0078.3[facility] KyptzcxGKDEXVREKF9468-61-40 08:30:00 Test Item Value Reference Range Interpretation Comments MCH (test code = MCH) 24.3 pg 27.0-31.0 [facility] ZnkfgdpNMZQPKDGOB0257-65-44 08:30:0031.0[facility] HermannHEMATOLOGY 2020-02-25 08:30:0019.5[facility] SsjbgggNCEONFCBZQ6504-56-52 08:30:0094[facility] QrbidxzPOHQGQEENN0804-69-81 08:30:009.6[facility] HermannPARATHYROID PROFILE 2020-02-25 08:30:001.17[facility] HermannPARATHYROID DOKLZKK3679-48-58 08:30:00 1.17[facility] NroysykXJDNWCTTWM2568-74-94 21:43:00Negative 5(02/24/20 4:43 PM) [facility] EiohmzvQIPLJYHQXD6425-14-21 21:43:00 Test Item Value Reference Range Interpretation Comments Pat Od Value (test code = Pat Od 0.064 1 Value) [facility] UjycsxdIKLIUCQIBI6793-99-71 21:43:00 Test Item Value Reference Range Interpretation Comments Pos CO Value (test code = Pos CO 0.400 1 Value) [facility] HaqdzkyQYADZDVEZU4281-12-57 06:06:000.1[facility] HermannHEMATOLOGY 2020-02-23 06:25:30336Bezsnpyu HermannCARDIAC VBBRLIB1411-82-01 15:43:0073 [facility] CmtjtmhYMWMWBLVRI8026-19-94 15:43:001+ *ABN*(02/22/20 10:43 AM)[facility] KcftdwxZERFCREKVB7948-20-81 15:43:001+ (02/22/20 10:43 AM)[facility] LGYNNQKTAV4056-70-23 15:43:000.2[facility] EkjafyhLAPCUVYBNR8303-12-47 15:43:000.2 [facility] HermannCHEM RQBQY7193-74-24 08:57:001.7[facility] HermannHEMATOLOGY 2020-02-22 08:57:000.1[facility] HermannCHEM RIQPC0701-83-11 04:33:003.8[facility] HermannCEFTRIAXONE:SUSC:PT:ISOLATE:ORDQN:PPP5217-99-26 04:08:00Enterobacter cloacaeMemorial HermannURINE AND PEPVJ0559-47-17 02:52:00Light Yellow *NA*(02/21/20 9:52 PM)[facility]ann[facility] AND MAFXI1458-28-81 02:52:00Slight *ABN*(02/21/20 9:52 PM)[facility]ann[facility] AND TLOBK6832-08-03 02:52:00 Test Item Value Reference Range Interpretation Comments UA Spec Grav (test code = UA Spec 1.015 1 Grav) [facility]ann[facility] AND KJNRW1899-46-88 02:52:00 Test Item Value Reference Range Interpretation Comments UA pH (test code = UA pH) 5.0 1 5.0-8.0 [facility] ERZLN9199-78-41 02:52:00Negative *NA*(02/21/20 9:52 PM) [facility] WWXUK1829-00-46 02:52:00Negative (02/21/20 9:52 PM) [facility] NCEMR1543-05-22 02:52:00<1.0[facility]annUR[facility] AND ELAFJ4499-80-07 02:52:00Positive *ABN*(02/21/20 9:52 PM)[facility] AND JMGWQ5907-11-62 02:52:00Trace *ABN*(02/21/20 9:52 PM)[facility] AND FKJRX7219-98-13 02:52:0016[facility]annUR[facility] AND AZRWV0730-70-57 02:52:00 2[facility]annUR[facility] AND DHNGE3598-16-50 02:52:003[facility] HermannCHEM PANEL 2020-02-22 00:49:002.9[facility] HvjfeanIEIVIZTMHA2908-19-09 08:21:47776Rlxygqxk NftwmqrFTKSLKDVFD1800-08-57 08:21:00 Test Item Value Reference Range Interpretation Comments PT (test code = PT) 14.2 s 12.0-14.7 [facility] VfvnsnfJZQJYIOCAF6109-91-92 08:21:00 Test Item Value Reference Range Interpretation Comments INR (test code = INR) 1.10 1 0.85-1.17 [facility] OvpvszfSPBJRPOOQR5380-00-79 08:21:00 Test Item Value Reference Range Interpretation Comments PTT (test code = PTT) 43.0 s 22.9-35.8 [facility] WraeeqwHGVLMMYDBX8575-60-89 08:21:82874Adbjpmje HermannBLOOD BANK MPQOCNO3479-53-91 14:31:00Negative (02/19/20 9:31 AM)[facility] HermannCHEM PANEL 2020-02-19 14:22:16629Cqldrfew HermannCHEM UNDWG6587-31-16 14:22:0015Mem[facility] HermannCHEM XMFYX6663-20-94 14:22:000.67[facility] HermannCHEM JAVID4236-86-52 14:22:57750Kbkgnstm HermannCHEM LPDJC8459-36-47 14:22:003.6[facility] HermannCHEM CLRYU8714-77-08 14:22:12276Hdbvifyd HermannCHEM ISWUJ8647-68-04 14:22:0029 [facility] HermannCHEM MORAQ3610-73-68 14:22:008.4[facility] HermannCHEM PANEL 2020-02-19 14:22:008.6[facility] HermannCHEM UMGOW8209-66-50 14:22:0087Mem[facility] HermannCHEM QARIB2368-81-58 14:22:001.8[facility] HermannCHEM EMNDM9409-13-73 14:22:002.5[facility] BqswavgZRCBQDXGMY4949-22-02 14:22:00 Test Item Value Reference Range Interpretation Comments PT (test code = PT) 14.2 s 12.0-14.7 [facility]HcukdjyCVTVIFGRNI2611-61-26 14:22:00 Test Item Value Reference Range Interpretation Comments INR (test code = INR) 1.10 1 0.85-1.17 [facility] CenterDkkrdsfFAPFSMQYJN0291-34-96 14:22:00 Test Item Value Reference Range Interpretation Comments PTT (test code = PTT) 37.8 s 22.9-35.8 [facility] CenterKcellccCVLSBAEQZB7665-92-52 14:22:37160Fglucczb HermannHEMATOLOGY 2020-02-19 14:22:000.96[facility] CentralXfezosqVGLLOBPLVB3224-92-99 14:22:00 Test Item Value Reference Range Interpretation Comments Thrombin Time (test code = Thrombin 25.6 s 15.0-21.2 Time) [facility] CenterHamzgddSDXRLKOOEB8775-82-78 14:22:77227Bueqxrol HermannHEMATOLOGY 2020-02-19 14:22:00 Test Item Value Reference Range Interpretation Comments PT (test code = PT) 14.4 s 12.0-14.7 [facility] CenterFjdwvncOIXTJBWIQB6464-85-01 14:22:00 Test Item Value Reference Range Interpretation Comments INR (test code = INR) 1.11 1 0.85-1.17 [facility] CenterBxhqpunMYZSBYYGYV5076-15-15 14:22:00 Test Item Value Reference Range Interpretation Comments PTT (test code = PTT) 37.1 s 22.9-35.8 [facility] CenterPydovouGGYOWGJRGT3874-94-61 14:22:0018.9[facility] HermannHEMATOLOGY 2020-02-19 14:22:004.69[facility] FujvaevENPLQDBPDA0018-47-56 14:22:0011.2[facility] AtnbdxwAICUVXDEVN9904-52-65 14:22:0037.1[facility] TkqxhunHLRRBRNKFR5280-50-20 14:22:0079.1[facility] OuahupcWDUIZSGZZK4335-99-93 14:22:00 Test Item Value Reference Range Interpretation Comments MCH (test code = MCH) 23.8 pg 27.0-31.0 [facility] TstkfnsLNXNOVPTWU2456-62-47 14:22:0030.1[facility] HermannHEMATOLOGY 2020-02-19 14:22:0018.7[facility] NnolfeuVETLPRRMOP9703-88-89 14:22:68700Pqrayhay YiyjjkoIDPVWQGLZB2590-05-19 14:22:009.7[facility] HctkacfXSJBPNANZR1306-21-39 14:22:0061.0[facility] PxplbyuDKJIUNGJXG4718-23-57 14:22:0030.5[facility] RSUFTNQQGA1394-78-17 14:22:007.1[facility] RbxsbmqBSXBZHVILP2937-66-20 14:22:000.7 [facility] VzfarfzQYBQXTYWFP0922-38-28 14:22:000.7[facility] HermannHEMATOLOGY 2020-02-19 14:22:0011.5[facility] OammcxyWVFFCABZSL4816-66-34 14:22:005.8[facility] FjgeecnNLBXAFSVKS4102-10-61 14:22:001.3[facility] RybsmicADCMWILFAC7923-79-85 14:22:000.1[facility] AsksorqRUQJVHESLY9633-15-58 14:22:000.1[facility] PARATHYROID NAJBNNP8623-30-57 14:22:001.11[facility] HermannPARATHYROID PROFILE 2020-02-19 14:22:001.12[facility] HermannCHEM GLNCB8576-85-37 09:08:003.5[facility] HermannCHEM XLRCR9078-97-31 09:08:001.6[facility] HermannCHEM HJRNB4759-88-71 09:08:15017Oqycmzqc HermannCHEM LZSOG6687-11-22 09:08:0012[facility] HermannCHEM ODMXZ9368-11-02 09:08:000.67[facility] HermannCHEM SNSLG1987-83-75 09:08:84683 [facility] HermannCHEM GVSJY9041-58-99 09:08:003.3[facility] HermannCHEM PANEL 2020-02-18 09:08:50683Qxhrkgxd HermannCHEM YGCBZ6048-86-92 09:08:0028[facility] HermannCHEM UFNNC1960-95-12 09:08:008.7[facility] HermannCHEM XYTVT8951-32-37 09:08:0010.3[facility] HermannCHEM BWVFN9274-68-31 09:08:0087[facility] CUMGUIZYZP5884-45-36 09:08:00 Test Item Value Reference Range Interpretation Comments PT (test code = PT) 17.5 s 12.0-14.7 [facility] XuiulpiUTGAJNRQMI2425-66-39 09:08:00 Test Item Value Reference Range Interpretation Comments INR (test code = INR) 1.42 1 0.85-1.17 [facility] DrlxrocORCVBPCXUF9368-43-63 09:08:00 Test Item Value Reference Range Interpretation Comments PTT (test code = PTT) 82.9 s 22.9-35.8 [facility] DekzyqxGROSDJNPSY4975-18-36 09:08:000.68[facility] HermannHEMATOLOGY 2020-02-18 09:08:29695Wdrwlenk PycipucVBHREURVYE8956-10-78 09:08:0016.3[facility] TxxzopxVXXQIKQDMD0621-90-23 09:08:004.72[facility] KwbwyuuFWPXTROYZH3566-66-42 09:08:0011.4[facility] KkgjbbgULRFRRURMT6503-35-95 09:08:0037.0[facility] ZWKIKZKGFL2612-64-33 09:08:0078.4[facility] BnyhfkmNLVZNGBYEI5813-11-80 09:08:00 Test Item Value Reference Range Interpretation Comments MCH (test code = MCH) 24.1 pg 27.0-31.0 [facility] CbtutxwHHKWIQKSMK5914-34-15 09:08:0030.7[facility] HermannHEMATOLOGY 2020-02-18 09:08:0018.3[facility] KikchvaIFJKTRFOYV5779-91-12 09:08:20335Abargcxd SjrwlhiNENKRCNZJY6640-93-00 09:08:009.7[facility] UshulddTFSEYMAJVU3469-67-47 09:08:0066.2[facility] QykdhsgXKGEABKRZJ5007-61-04 09:08:0023.2[facility] CHVTERQSGN9738-59-23 09:08:009.3[facility] BwtemsfVRQVKGZEGS9146-54-22 09:08:000.8 [facility] OououuaTDYSRJUFBB4891-60-38 09:08:000.5[facility] HermannHEMATOLOGY 2020-02-18 09:08:0010.8[facility] VylznkjKFQYWXRSRK6367-16-86 09:08:003.8[facility] IjnjvwdTPYBOUAJNZ6197-72-61 09:08:001.5[facility] AafuwxoRHJKJUTBGY8826-79-30 09:08:000.1[facility] LvwmgiiFXRFKQTWPA6144-21-54 09:08:000.1[facility] PMJEBCDSYG3999-33-38 09:08:001+ *ABN*(02/18/20 4:08 AM)[facility] PARATHYROID SDWNDKV3738-79-76 09:08:001.13[facility] HermannPARATHYROID PROFILE 2020-02-18 09:08:001.12[facility] OjzdtxcEKFRMFIMLF7952-82-37 17:25:00Not Detected (02/17/20 12:25 PM)[facility]BL[facility] YRSMERH4777-17-04 17:10:00Result Note 4(02/17/20 12:10 PM)[facility] UEPWEPM5053-56-33 17:10:00 Positive (02/17/20 12:10 PM)[facility]annCARDIAC ZOMUGLG1688-37-71 17:10:0025 [facility]annCHEM TALMH8813-14-54 17:10:003.0[facility]annCHEM PANEL 2020-02-17 17:10:72653Emfmqiaj HermannCHEM FZDSN7998-33-78 17:10:0011[facility]annCHEM FHZGR7581-10-47 17:10:000.68[facility]annCHEM TSVAM1631-93-53 17:10:80482Ukgvozeg HermannCHEM ZBGUX9612-67-65 17:10:003.4[facility]annCHEM RHSXJ0485-32-25 17:10:88041Jgyrlrbe HermannCHEM WFZEU1610-93-01 17:10:0031 [facility]annCHEM FFPPR3290-93-46 17:10:008.4[facility]annCHEM PANEL 2020-02-17 17:10:006.4[facility]annCHEM WZJIO7730-41-89 17:10:0087[facility]annCHEM ASXNS2506-80-12 17:10:00<0.05[facility]annCHEM CAYEO3389-31-83 17:10:001.6[facility] IajcrbnDOWYSZARUU7302-64-81 17:10:0016.0[facility] XGRJCPGZZY5261-36-05 17:10:005.23[facility] ObrwnimGHYDTSNHSE5287-14-76 17:10:00 12.7[facility] ZauhyjzWIRETYAZDD0020-75-05 17:10:0041.4[facility]annHEMATOLOGY 2020-02-17 17:10:0079.1[facility] CqkqokpCFORWFLBBG4830-35-81 17:10:00 Test Item Value Reference Range Interpretation Comments MCH (test code = MCH) 24.4 pg 27.0-31.0 [facility] SmrmaxoFTJCGOPKLP5431-28-97 17:10:0030.8[facility]annHEMATOLOGY 2020-02-17 17:10:0018.3[facility] JgdkuodEOURVMJLSN6647-15-20 17:10:37738Yervpnib WgnxiabEQOFDIBCHP4120-66-67 17:10:0010.1[facility] SxmasznXAZVDTOFXM4471-63-61 17:10:0084.7[facility] EldufclYYFGNPWCVI9686-78-36 17:10:009.3[facility] WTGFZNJZVK6031-28-17 17:10:005.0[facility] NgukcjyYIOPAVOQAE1161-19-65 17:10:000.5 [facility] BhdhwekWWJDAANNPS5293-97-20 17:10:000.5[facility]annHEMATOLOGY 2020-02-17 17:10:0013.6[facility] IbfnefgXGADTORRUT3137-40-18 17:10:001.5[facility] CwqetgcTCUTPBOZDQ2446-17-79 17:10:000.8[facility] IttnscoKRXQFUFXVD3654-93-91 17:10:000.1[facility] FkcyyrfBQRYDT3006-93-57 17:10:22493Kckkcbne HermannLIPIDS 2020-02-17 17:10:66081Geaenmfe MkbpybpOMBAPT5939-63-62 17:10:0054[facility] YpjrmbkFPQJLY6854-35-30 17:10:00 Test Item Value Reference Range Interpretation Comments CHD Risk (test code = CHD Risk) 2.85 1 3.90-5.80 [facility] AckvivePXIBCZ9163-65-62 17:10:0069[facility] CoupnopFQGOTI0529-79-12 17:10:00 Test Item Value Reference Range Interpretation Comments VLDL (test code = VLDL) 31 1 [facility]UR[facility] AND CWOMX6794-16-40 03:29:00Yellow *NA*(02/15/20 10:29 PM) [facility] PSXNY2284-91-60 03:29:00Marked *ABN*(02/15/20 10:29 PM) [facility] XNYTG3475-36-68 03:29:00 Test Item Value Reference Range Interpretation Comments UA Spec Grav (test code = UA Spec 1.015 1 Grav) [facility] XRKVN1470-84-03 03:29:00 Test Item Value Reference Range Interpretation Comments UA pH (test code = UA pH) 7.0 1 5.0-8.0 [facility] LUCUB2391-10-41 03:29:00Negative *NA*(02/15/20 10:29 PM)[facility] EHGFT7831-74-79 03:29:00Negative (02/15/20 10:29 PM) [facility] HUMVU6165-89-01 03:29:00<1.0[facility] AND ERZSW6430-54-67 03:29:00Negative (02/15/20 10:29 PM)[facility] UMZPA9991-16-66 03:29:00Negative (02/15/20 10:29 PM)[facility] SKDWD4973-04-56 03:29:001[facility] MEUQA9320-72-52 03:29:001 [facility] IOLDY5073-56-41 03:29:003[facility]annCHEM PANEL 2020-02-16 02:49:005.8[facility] HermannCHEM TDUEU5706-61-68 02:49:002.4[facility]annCHEM LJKJZ6679-27-19 02:49:0026[facility]annCHEM EWJHF9877-28-69 02:49:0016[facility]annCHEM BBFJY0927-11-47 02:49:06358Kcahkwky HermannCHEM LOSJB3400-43-55 02:49:000.3[facility]annCHEM ZNVMQ3962-22-05 02:49:00 Test Item Value Reference Range Interpretation Comments B/C Ratio (test code = B/C Ratio) 25 1 6-25 [facility]annCHEM QYRBH9451-00-51 02:49:003.4[facility] HermannCHEM PANEL 2020-02-16 02:49:00 Test Item Value Reference Range Interpretation Comments A/G Ratio (test code = A/G Ratio) 0.7 1 0.7-1.6 [facility] ozxrj2135-69-57 13:34:00 Test Item Value Reference Range Interpretation Comments POC-Glucose Meter (test 101 mg/dL 70-110 : TE STED AT [facility] code = 1538) [address] [facility], [address]70 30: [employer] Test Engineer/Techni ras ID = [id number] for LENNOX OSBORN Lab Interpretation (test Normal code = 95042-9) [facility] UQYAE2722-98-97 13:34:00 Test Item Value Reference Range Interpretation Comments POC-GLUCOSE METER 101 mg/dL 70-110 : TESTED A T [facility] 6720 (BEAKER) (test code = KLEVER [place], 1538) [address]: [employer] Test Engineer/Techni ras ID = [id number] for LENNOX RAMOS Urine [id number] 10:36:00 Test Item Value Reference Range Interpretation Comments Result (test code = See comment 6463-4) ZIA (test code = >100,000 col/mL enteric ZIA) organisms of >3 types. No further workup performed. Multiple organisms suggestive of colonization or contamination. Repeat collection recommended. [facility] [id number] 08:50:00 Test Item Value Reference Range Interpretation Comments POC-GLUCOSE METER 100 mg/dL 70-110 : TESTED A T [facility] 6720 (BEAKER) (test code = KLE[facility], 1538) [address]: Qa Software Test Engineer/Techni ras ID = [id number] for LENNOX RAMOS POCT-GLUCOSE [id number] 06:33:00 Test Item Value Reference Range Interpretation Comments POC-GLUCOSE METER 184 mg/dL 70-110 H : TESTED A T [facility] 6720 (BEAKER) (test code = [facility] Sue [facility], 1538) [address]: Qa Software Test Engineer/Techni ras ID = [id number] for DO VE, DONNELLKARA CBC with platelet count + automated [id number] 06:31:00 Test Item Value Reference Range Interpretation Comments WBC (test code = 6690-2) 19.1 See_Comment H [A utomated message] The system [employer] generated this result transmitted ref erence range: 3.5 - 10 .5 K/L. The refe rence range was not u sed to interpret this result as normal/abnor mal. RBC (test code = 789-8) 4.85 See_Comment [Au tomated message] The system [employer] generated this result transmitted ref erence range: 3.93 - 5 .22 M/L. The refe rence range was not u sed to interpret this result as normal/abnor mal. MCHC (test code = 786-4) 29.3 See_Comment L [A utomated message] The system [employer] generated this result transmitted ref erence range: 32.2 - 3 5.5 GM/DL. The refe rence range was not u sed to interpret this result as normal/abnor mal. Hematocrit (test code = 40.3 % 34.1-44.9 4544-3) MCV (test code = 787-2) 83.1 fL 79.4-94.8 MCH (test code = 785-6) 24.3 pg 25.6-32.2 L RDW (test code = 788-0) 16.7 % 11.7-14.4 H Platelets (test code = 154 See_Comment [Aut omated message] 777-3) The system [employer] generated this result transmitted ref erence range: 150 - 45 0 K/CU MM. The referen ce range was not u sed to interpret this result as normal/abnor mal. MPV (test code = 12.4 fL 9.4-12.3 H 42486-2) nRBC (test code = 413) 0 See_Comment [Aut omated message] The system [employer] generated this result transmitted ref erence range: 0 - 0 /1 00 WBC. The refere nce range was not u sed to interpret this result as normal/abnor mal. % Neutros (test code = 82 % 429) % Lymphs (test code = 12 % 430) % Monos (test code = 5 % 431) % Eos (test code = 432) 0 % % Baso (test code = 437) 0 % # Neutros (test code = 15.53 See_Comment H [Aut omated message] 670) The system [employer] generated this result transmitted ref erence range: 1.56 - 6 .13 K/L. The refe rence range was not u sed to interpret this result as normal/abnor mal. # Lymphs (test code = 2.34 See_Comment [Auto mated message] 414) The system [employer] generated this result transmitted ref erence range: 1.18 - 3 .74 K/L. The refe rence range was not u sed to interpret this result as normal/abnor mal. # Monos (test code = 0.92 See_Comment H [Autom ated message] 415) The system [employer] generated this result transmitted ref erence range: 0.24 - 0 .36 K/L. The refe rence range was not u sed to interpret this result as normal/abnor mal. # Eos (test code = 416) 0.06 See_Comment [Au tomated message] The system [employer] generated this result transmitted ref erence range: 0.04 - 0 .36 K/L. The refe rence range was not u sed to interpret this result as normal/abnor mal. # Baso (test code = 417) 0.03 See_Comment [A utomated message] The system [employer] generated this result transmitted ref erence range: 0.01 - 0 .08 K/L. The refe rence range was not u sed to interpret this result as normal/abnor mal. Immature 1 % 0-1 Granulocytes-Relative (test code = 2801) Lab Interpretation (test Abnormal code = 66945-5) [facility] W/PLT COUNT & AUTO [id number] 06:31:00 Test Item Value Reference Range Interpretation [...] PERCENT (BEAKER) (test code = 2801) POCT-GLUCOSE [id number] 18:19:00 Test Item Value Reference Range Interpretation Comments POC-GLUCOSE METER 148 mg/dL 70-110 H : TESTED A T [facility] 6720 (BEAKER) (test code = [place], 1538) [address]: Qa Software Test Engineer/Techni ras ID = [id number] for HU NT, MAGGIE Urinalysis w/Microscopic + Reflex to [id number] 15:46:00 Test Item Value Reference Range Interpretation Comments Color, UA (test code Yellow = 5778-6) Clarity, UA (test Hazy code = 5767-9) Specific [place], UA 1.028 1.001-1.035 (test code = 5811-5) pH, UA (test code = 6.0 5.0-8.0 5803-2) Protein, UA (test 30 mg/dL Negative A code = 23925-2) Glucose, UA (test Negative Negative code = 365) Ketones, UA (test Negative Negative code = 2514-8) Bilirubin, UA (test Negative Negative code = 62976-6) Blood, UA (test code Negative Negative = 57504-9) Nitrite, UA (test Negative Negative code = 5802-4) Leukocytes, UA (test Moderate Negative A code = 5799-2) Urobilinogen, UA 0.2 mg/dL 0.2-1 (test code = 11613-1) RBC, UA (test code = 2 See_Comment [Autom ated 64938-8) message] The system which generated this result transmitted reference range : /HPF. The reference range was not used to interpret this result as normal/abnormal . WBC, UA (test code = 28 See_Comment [Autom ated 5821-4) message] The system which generated this result transmitted reference range : /HPF. The reference range was not used to interpret this result as normal/abnormal . Mucus (test code = Occasional 8247-9) Squam Epithel, UA 1 See_Comment [Automate d (test code = 17619-3) messag e] The system which generated this result transmitted reference range : /HPF. The reference range was not used to interpret this result as normal/abnormal . Hyaline Casts, UA 1 See_Comment [Automate d (test code = 54680-4) messag e] The system which generated this result transmitted reference range : /LPF. The reference range was not used to interpret this result as normal/abnormal . Ca Oxalate Jagruti, UA Occasional (test code = 46634-9) Specimen Source (test code = 2795) ZIA (test code = ZIA) Qa Software Test Engineer ID - [auto]Qa Software Test Engineer ID - [email or web address] Lab Interpretation Abnormal (test code = 89383-7) [facility]/ [facility]FLEX URINE [id number] 15:46:00 Test Item Value Reference Range Interpretation [...] = 518) SOURCE(BEAKER) (test code = 2795) Qa Software Test Engineer ID - [auto]Qa Software Test Engineer ID - hankPOCT-GLUCOSE [id number] 12:47:00 Test Item Value Reference Range Interpretation Comments POC-GLUCOSE METER 128 mg/dL 70-110 H : TESTED A T [facility] 6720 (BEAKER) (test code = [facility], 1538) [address]: Qa Software Test Engineer/Techni ras ID = [id number] for Jarod Valladareso POCT-GLUCOSE [id number] 12:34:00 Test Item Value Reference Range Interpretation Comments POC-GLUCOSE METER 131 mg/dL 70-110 H : TESTED A T [facility] 6720 (BEAKER) (test code = [facility], 1538) 95397: Qa Software Test Engineer/Techni ras ID = [id number] for LENNOX RAMOS FL, ESOPH, SWALLOW FUNCTION, WITH CINE OR [id number] 12:20:00Reason for exam:->dysphagiaFINAL REPORT EXAMINATION: Modified barium [...] MDReport Verified Date/Time: 02/14/2020 12:20:00 Reading Location: [facility] C013 Transitional Reading Room [place] esoph swallow funct with cine [id number] 12:20:00Interface, External Ris In - 02/14/2020 12:22 [...] MDReport Verified Date/Time: 02/14/2020 12:20:00 Reading Location: [facility] C013 Transitional [facility]O [id number] 04:50:00 Test Item Value Reference Range Interpretation [...] PERCENT (BEAKER) (test code = 2801) POCT-GLUCOSE [id number] 01:00:00 Test Item Value Reference Range Interpretation Comments POC-GLUCOSE METER 261 mg/dL 70-110 H : TESTED A T [facility] 6720 (BEAKER) (test code = [facility], 1538) 36913: Qa Software Test Engineer/Techni ras ID = [id number] for DO VE, CHEKARA POCT-GLUCOSE [id number] 17:38:00 Test Item Value Reference Range Interpretation Comments POC-GLUCOSE METER 396 mg/dL 70-110 H : TESTED A T [facility] 6720 (BEAKER) (test code [facility], = 1538) 67[address]: Qa Software Test Engineer/Techni ras ID = [id number] for TSEG GAI, TSIGHEREDA RAD, CHEST, 2 [id number] 12:51:00Reason for exam:->evaluate position of left chest [...] Reading Location: [facility] Radiology Reading Room XR chest 2 bptlw4011-13-57 12:51:00Interface, External Ris In - 02/13/2020 12:53 [...] 12:51:24Reading Location: [facility] Radiology Reading Room [facility] [id number] 08:20:00 Test Item Value Reference Range Interpretation Comments POC-GLUCOSE METER 180 mg/dL 70-110 H : Notified RN/MD: TESTED (KATHLEEN) (test code AT [facility] 6720 [facility] [place] = 1538) [facility], [facility] 30: Qa Software Test Engineer/Techni ras ID = [id number] for TSEG GAJaylon, RONALDOEREDA POCT-GLUCOSE [id number] 23:11:00 Test Item Value Reference Range Interpretation Comments POC-GLUCOSE METER 254 mg/dL 70-110 H : Notified RN/MD: (KATHLEEN) (test code = TESTED AT [facility] 6720 1538) [facility], [address]: Qa Software Test Engineer/Techni ras ID = [id number] for MARIA MEDINA POCT-GLUCOSE [id number] 17:32:00 Test Item Value Reference Range Interpretation Comments POC-GLUCOSE METER 386 mg/dL 70-110 H : Notified RN/MD: TESTED (KATHLEEN) (test code AT [facility] [address] [place] [address] = 1538) [facility], 770 30: Qa Software Test Engineer/Techni ras ID = [id number] for TSEG GAI, TSIGHEREDA RAD, CHEST, 1 VIEW, NON [id number] 14:59:00Reason for exam:->concern for aspirationShould this be [...] No acute osseous abnormality. Signed: Mehnaz Maxwell [facility] Verified Date/Time: 02/12/2020 14:59:34 Reading Location: [address] Body Reading Room XR chest 1 view portable / [id number] 14:59:00Interface, External Ris In - 02/12/2020 3:01 [...] Maxwell Verified Date/Time: 02/12/2020 14:59:34 Reading Location: [place] [id number] CT Body Reading Room Electronicallysigned by: MEHNAZ MAXWELL MD on 02/12/2020 02:59 [facility]/Free T4 If Uexivdunf2720-03-63 13:50:00 Test Item Value Reference Range Interpretation Comments TSH (test code = 95298-9) 1.158 See_Comment [ Automated message] The system [employer] generated this result transmitted ref erence range: 0.350 - 4.940 uIU/mL. The ref erence range was not u sed to interpret this result as normal/abnor mal. Lab Interpretation (test Normal code = 83818-6) [facility]/FREE T4 IF [id number] 13:50:00 Test Item Value Reference Range Interpretation Comments THYROID STIMULATING HORMONE 1.158 uIU/mL 0.350-4.940 (BEAKER) (test code = 772) Comprehensive metabolic cbgrg5006-43-94 12:44:00 Test Item Value Reference Range Interpretation Comments Protein, Total (test 4.8 See_Comment L Specime n slightly code = 2885-2) hemolyzed [Automated mess age] The system [employer] generated this result transmit porsche reference range : 6.0 - 8.3 gm/dL . The reference r evelyn was not used to interpret this result as normal/abnormal . Albumin (test code = 2.9 g/dL 3.5-5 L Specime n slightly 93477-2) hemolyzed Alkaline Phosphatase 174 U/L 40-150 H (test code = 6768-6) Total Bilirubin (test 0.3 mg/dL 0.2-1.2 Specim en slightly code = 1975-2) hemolyzed Sodium (test code = 140 meq/L 845-764 5272-2) Potassium (test code = 3.6 meq/L 3.5-5.1 Speci men slightly 2823-3) hemolyzed Chloride (test code = 105 meq/L 98-107 5-0) CO2 (test code = 28 meq/L -29 2027-9) BUN (test code = 11 mg/dL 7-21 3094-0) Creatinine (test code = 0.48 mg/dL 0.57-1.25 L Spec imen slightly 2160-0) hemolyzed Glucose (test code = 95 mg/dL 70-105 2345-7) Calcium (test code = 8.2 mg/dL 8.4-10.2 L 80113-7) AST (test code = 32 U/L 5-34 Specimen sl ightly 1920-8) hemolyzed ALT (test code = 31 U/L 6-55 Specimen sl ightly 1742-6) hemolyzed EGFR (test code = 127 mL/min/1.73 [place] [address]-3) NOT ACCURATE CREATININE CLEARANCE IN PREDICTING GLOMERULAR FILTRATION RATE . ESTIMATED GFR I S NOT APPLICABLE FOR DIALYSIS PATIEN TS. Lab Interpretation Abnormal (test code = 60741-1) [facility] CenterCOMPREHENSIVE METABOLIC [id number] 12:44:00 Test Item Value Reference Range Interpretation [...] = 382) CO2 (BEAKER) (test 28 meq/L code = 355) BLOOD UREA NITROGEN 11 [...] 29-200 Lab Interpretation (test code = Normal 20050-1) [facility] CenterLactate dehydrogenase (LDH)2020-02-12 12:29:00 Test Item Value Reference Range Interpretation Comments LDH (test code = 2532-0) 401 U/L 125-220 H Spe cimen slightly hemolyzed Lab Interpretation (test Abnormal code = 94826-9) [facility] CenterLACTATE DEHYDROGENASE (LDH)2020-02-12 12:29:00 Test Item Value Reference Range Interpretation Comments LACTATE DEHYDROGENASE 401 U/L 125-220 H Specim en slightly (BEAKER) (test code = hemoly zed 635) CREATINE KINASE (CK)2020-02-12 12:29:00 Test Item Value Reference Range Interpretation Comments CREATINE KINASE TOTAL (BEAKER) (test 47 U/L 29-200 code = 380) Vitamin [id number] 12:28:00 Test Item Value Reference Range Interpretation Comments Vitamin B12 (test code = 2132-9) 486 pg/mL 213-816 Lab Interpretation (test code = Normal 56147-1) [facility] CenterVITAMIN [id number] 12:28:00 Test Item Value Reference Range Interpretation Comments VITAMIN B12 (BEAKER) (test code = 486 pg/mL 213-630 454) POCT-GLUCOSE [id number] 12:20:00 Test Item Value Reference Range Interpretation Comments POC-GLUCOSE METER 147 mg/dL 70-110 H : TESTED Bobby T [facility] 6720 (BEAKER) (test code [facility], = 1538) [address]: Qa Software Test Engineer/Techni ras ID = [id number] for LEILA LEDESMA SARS-CoV2/RT-PCR (Asymptomatic ONLY)2020-02-12 12:08:00 Test Item Value Reference Range Interpretation Comments SARS-COV2/RT-PCR Negative Not Detected, (test code = Negative, See 34626-5) external report for linked test SARS-COV-2 [facility] PERFORMING LAB (test code = 08640-9) ZIA (test code = Negative result for [...] of the Act. Fact Sheet for Healthcare Providers:https://www.MaxMilhas.MDconnectME/sites/default/f humble/product/documents/F act_Sheet_HC_Providers_L bne_LTRQ-FlS-0.pdf Fact Sheet for Healthcare Patients:https://www.Koofers/sites/default/fi les/product/documents/Fa ct_Sheet_Patients_Lyra_S ARS-CoV-2.pdf Performing Laboratory:[facility] [place] [address] [facility] ([facility])2020-02-12 12:08:00 Test Item Value Reference Range Interpretation Comments SARS-COV2/RT-PCR (test Negative Not Detected, Negative, code = 1147931) See external report for linked test SARS-COV-2 PERFORMING LAB [facility] (test code = 6613144) Negative result for this test determines that [...] a nasopharyngeal swab specimen collected from individuals susp ected of COVID-19 by their healthcare provider.This test [...] 564(g) of the Act.Fact Sheet for Healthcare Providers:https://www.[employer]/sites/default/files/product/documents/Fact_Shee y_FQ_Dqrtpfmun_Pogr_NJYI-CsC-5.pdfFact Sheet for Healthcare Patients:https://www.[employer]/sites/default/files/product/ documents/Qham_Opyuq_Tjxwyllg_Cajx_YGKY-HyY-8.pdfPerforming Laboratory:[place] [address] [address] [facility], [place] [address]LSGJ-WGLBUYQ METER 2020-02-12 09:52:00 Test Item Value Reference Range Interpretation Comments POC-GLUCOSE METER 74 mg/dL 70-110 : TESTED A T [facility] 6720 ([facility]) (test code [facility], = 1538) [address]: Qa Software Test Engineer/Techni ras ID = [id number] for LEILA LEDESMA CBC W/PLT COUNT & AUTO [id number] 09:04:00 Test Item Value Reference Range Interpretation [...] 0-1 PERCENT (BEAKER) (test code = 2801) ZKWXRABQHJ9562-08-26 17:18:00Not Detected (12/20/19 12:18 PM)[facility] CARDIAC ZCIZSJY6954-15-82 10:06:000.02[facility] HermannCHEM OGWGX2901-44-36 10:06:76442Oprlwjbi HermannCHEM AJOAX6059-12-77 10:06:0010[facility] HermannCHEM RFCIG5109-95-37 10:06:000.64[facility]annCHEM HFDMG4554-50-36 10:06:34472 [facility]annCHEM WHQRP5193-60-45 10:06:003.9[facility] HermannCHEM PANEL 2019-12-18 10:06:03240Oxakbrvc HermannCHEM TNIWX9755-74-97 10:06:0028[facility] HermannCHEM KCCFW6989-31-31 10:06:0010.9[facility] HermannCHEM LIKKD7416-20-17 10:06:008.3[facility] HermannCHEM JRWZS9474-48-13 10:06:0089[facility]annCHEM OMYVW2280-76-53 10:06:002.1[facility] HermannCHEM SYVEW7844-49-39 10:06:003.2 Memorial BgbovhkMWNQRBYTWF1910-75-46 10:06:009.9[facility] HermannHEMATOLOGY 2019-12-18 10:06:003.09[facility] UvnitiuTFRRJVAKZG5324-40-81 10:06:009.1[facility] SnhoqwqNGISQLQWQF9350-00-83 10:06:0028.9[facility] BgtmbkrOAKBZQLUYB4013-45-60 10:06:0093.7[facility]orial QeijyqqSBLVEMAJEG7799-23-99 10:06:00 Test Item Value Reference Range Interpretation Comments MCH (test code = MCH) 29.4 pg 27.0-31.0 Memorial YqrauxfXSXLVSSNJI8329-63-02 10:06:0031.4[facility] HermannHEMATOLOGY 2019-12-18 10:06:0016.7[facility] YxjuuwnSFOLLPWUDZ8018-92-12 10:06:54789Dvcakdfb VelechwAOIRPHETTU7172-14-72 10:06:0010.2[facility]orial WwpmbxnXKSSUKTNBD5714-92-16 10:06:0066.2[facility] MirmwueYCWOUTTYPO5314-22-75 10:06:0023.0[facility] ALXWZQQHYD5500-30-66 10:06:008.2[facility] GaauvmmGHNXWHXBPM8675-09-59 10:06:001.2 Memorial EcstnubGYSUPRSQBP4289-02-14 10:06:001.4[facility] HermannHEMATOLOGY 2019-12-18 10:06:006.5[facility] ZvvrghvYYAWUQMVDO5660-40-04 10:06:002.3[facility] VeafedhYJWLBMVQMU5739-94-60 10:06:000.8[facility] NyyinzeIWFSNMBAUP3233-56-27 10:06:000.1[facility] MyrkhrrZAWWZWFUFN7195-16-82 10:06:000.1[facility]annURINE AND VFWPF6818-63-71 10:06:00Dark Yellow *NA*(12/18/19 5:06 AM)[facility] URINE AND MGTZC9794-22-86 10:06:00Slight *ABN*(12/18/19 5:06 AM)[facility] URINE AND NPNIM2183-43-22 10:06:00 Test Item Value Reference Range Interpretation Comments UA Spec Grav (test code = UA Spec 1.018 1 Grav) [facility] AND FRDCS6683-86-67 10:06:00 Test Item Value Reference Range Interpretation Comments UA pH (test code = UA pH) 6.0 1 5.0-8.0 [facility] AND VXBNT7374-92-02 10:06:00Negative *NA*(12/18/19 5:06 AM) [facility] PLUDA6252-12-60 10:06:00Negative (12/18/19 5:06 AM) [facility] AND MRSSC3767-44-84 10:06:004.0[facility] AND PUGFA5730-89-42 10:06:00Negative (12/18/19 5:06 AM)[facility] AND EJDQF9136-86-75 10:06:00Negative (12/18/19 5:06 AM)[facility] TOUUV9813-57-31 10:06:0010[facility] AND YHAXW1529-64-16 10:06:002 [facility] AND XKRWZ0197-69-75 10:06:007[facility] HermannCHEM PANEL 2019-12-17 16:05:15449Kikbsknm HermannCHEM PQQJV1739-69-55 16:05:0011[facility]annCHEM SNWVP1085-87-98 16:05:000.80[facility] HermannCHEM NOHNZ9286-81-96 16:05:72261Pszekpig HermannCHEM UAPXR2172-62-69 16:05:003.4[facility] HermannCHEM TBIPR5445-89-99 16:05:00534Zcabtyeb HermannCHEM EWROT7689-82-81 16:05:0031 [facility]annCHEM OWKCB3166-70-54 16:05:008.2[facility] HermannCHEM PANEL 2019-12-17 16:05:007.4[facility] HermannCHEM RTPJK1173-80-74 16:05:0074[facility] HermannCHEM TQWUL9816-37-75 16:05:001.9[facility] HermannCHEM FTUFN6427-04-58 16:05:002.8[facility] YqllldoSVQOUMBABR8973-58-45 16:05:008.9[facility] VCETHWSUCV4710-56-08 16:05:003.03[facility] TbcsirnAIRXTJTHPC3210-97-47 16:05:00 9.3Memorial NptglcbLWTIDCQAPU4925-23-27 16:05:0028.4[facility] HermannHEMATOLOGY 2019-12-17 16:05:0093.8[facility] EvcbfyvCXOTCSEAGL1696-77-90 16:05:00 Test Item Value Reference Range Interpretation Comments MCH (test code = MCH) 30.7 pg 27.0-31.0 Memorial QivccfsVUUESOOKTX0727-12-02 16:05:0032.8[facility] HermannHEMATOLOGY 2019-12-17 16:05:0016.9[facility] PxnqlmaGRCWMNOXAE1097-03-67 16:05:38619Hnpnfnql EcmfgzyIOYLMJMLIU5672-49-74 16:05:009.7[facility] KripenvBHISSYHQLK5987-80-81 16:05:0071.0[facility]orial MpueoqtJTOAHWWVMK0696-02-53 16:05:0016.3[facility] TNSONYXACE0400-36-01 16:05:006.5[facility] ExklhaiSQWRLNWDNS3470-27-18 16:05:004.0 Memorial YktiscwQFTPAPTFFH4087-09-99 16:05:002.2[facility] HermannHEMATOLOGY 2019-12-17 16:05:006.3[facility] RghqkyvTACTCDKAEB8304-56-81 16:05:001.4[facility] PewbmcnZHUIYHEJNU7659-46-36 16:05:000.6[facility] WgpcoshKHYHRFOWWX7657-43-82 16:05:000.4[facility]orial QbelckdKRYGMPTRJX7136-41-44 16:05:000.2[facility] CARDIAC JONVKIY2266-58-92 05:24:000.03[facility] HermannCHEM FXMFA1416-41-89 05:24:54346Qzwainej HermannCHEM SYQNB3178-98-93 05:24:0012[facility] HermannCHEM SKPEB9461-99-77 05:24:000.59[facility] HermannCHEM CDJVZ9928-49-50 05:24:35457 [facility]annCHEM KEOCS1103-02-78 05:24:003.9[facility] HermannCHEM PANEL 2019-12-15 05:24:25606Ydnaxlvc HermannCHEM RSDKH0486-74-10 05:24:0034[facility] HermannCHEM DZPLB4372-77-71 05:24:008.3[facility] HermannCHEM NOYKU1438-65-84 05:24:008.9[facility] HermannCHEM TEIDD1918-33-87 05:24:0092[facility] HermannCHEM VOHIN1368-29-52 05:24:002.1[facility] HermannCHEM TFOCJ1807-56-18 05:24:002.4 Memorial EkuzgbkOURLBWIIOD2921-05-74 05:24:0011.9[facility] HermannHEMATOLOGY 2019-12-15 05:24:003.25Mem[facility] JkfepweGVXZZIVNBK0001-79-95 05:24:009.5[facility] NrwguovWLGSDUTINJ5759-86-24 05:24:0030.4[facility] LekhfunDRSSKDRUSO2462-44-64 05:24:0093.5[facility] LoeeysnWJUSCWCMOO4063-81-40 05:24:00 Test Item Value Reference Range Interpretation Comments MCH (test code = MCH) 29.3 pg 27.0-31.0 Memorial HutsaysNNODPMZVDG4806-34-15 05:24:0031.4[facility] HermannHEMATOLOGY 2019-12-15 05:24:0017.3[facility]orial GfjctouLBZTGYDQBM0197-16-24 05:24:12447Gvumzhac NfurrleQQPTUDWXNZ3505-21-36 05:24:0010.2[facility]orial BshepykTLKLVJWINN2499-51-76 05:24:0069.3Memorial TphpgqeNJRZRZYPXW9388-08-66 05:24:0018.5[facility] PUFQIMZBCY2175-93-60 05:24:007.6[facility] HbovaijQHANHFRXPR5160-25-92 05:24:003.8 Memorial LcrkpzdOROVYUZBZK1477-75-52 05:24:000.8[facility] HermannHEMATOLOGY 2019-12-15 05:24:008.3[facility] FehhnnpGOFVJSZXWC7681-68-06 05:24:002.2[facility] VhaepkjZAOWSCPNOP5388-27-49 05:24:000.9[facility]orial WdofnlgVAJUDYDFXJ0531-14-47 05:24:000.5[facility] AfwryjmCKMQRJCAJI8216-43-39 05:24:000.1[facility] LFVLTRVOOE4758-93-14 11:58:00Normal (12/14/19 6:58 AM)[facility]annHEMATOLOGY 2019-12-14 11:58:00Normal (12/14/19 6:58 AM)[facility]annCHEM [id number] 15:50:005.2[facility]annCHEM [id number] 15:50:002.2[facility]annCHEM [id number] 15:50:0022[facility]annCHEM LJCYP4398-06-38 15:50:0013 [facility]annCHE[facility] [id number] 15:50:10752Ooxjhptg HermannCHEM PANEL 2019-12-11 15:50:000.9[facility]annCHEM [id number] 15:50:00 Test Item Value Reference Range Interpretation Comments B/C Ratio (test code = B/C Ratio) 25 1 6-25 [facility]CHE[facility] [id number] 15:50:003.0[facility]annCHEM PANEL 2019-12-11 15:50:00 Test Item Value Reference Range Interpretation Comments A/G Ratio (test code = A/G Ratio) 0.7 1 0.7-1.6 [facility]annBODY [id number] 17:45:00Positive *ABN*(12/09/19 12:45 PM) [facility] YubcmcxDWUTMHTALT1680-68-86 16:46:00Normal (12/09/19 11:46 AM)[facility] YoqzgwkLOSFIOZQYE9778-99-50 16:46:00Normal (12/09/19 11:46 AM)[facility] CHEM [id number] 05:23:004.5[facility]annCHEM [id number] 05:23:002.5 [facility]annCHE[facility] [id number] 05:23:0027[facility]annCHEM PANEL 2019-12-07 05:23:0011[facility]annCHEM [id number] 05:23:0082[facility]annCHEM [id number] 05:23:000.8[facility]annCHEM [id number] 05:23:000.3[facility]annCHEM QHPDL9649-13-87 05:23:000.5[facility]annCHEM [id number] 05:23:002.0[facility]annCHEM [id number] 05:23:00 Test Item Value Reference Range Interpretation Comments A/G Ratio (test code = A/G Ratio) 1.2 1 0.7-1.6 [facility]annPARATHYROID [id number] 05:23:001.05[facility] PARATHYROID PTNWSFT1315-52-97 05:23:001.09[facility] PzdmxjjQHKOZVHTER5748-50-19 05:37:00 Test Item Value Reference Range Interpretation Comments PTT (test code = PTT) 31.1 s 22.9-35.8 [facility] SxnrbnyTBDDJDTPIL6254-78-71 05:37:00 Test Item Value Reference Range Interpretation Comments PT (test code = PT) 15.3 s 12.0-14.7 [facility] CxrbhmvYGTVKHQMPJ7585-22-18 05:37:00 Test Item Value Reference Range Interpretation Comments INR (test code = INR) 1.20 1 0.85-1.17 [facility]PAR[facility]YROID UZUUTVN8614-27-85 05:21:001.06[facility] PARATHYROID WFGWOVM2529-59-84 05:21:001.10[facility] 2019-12-05 22:53:00Product available (12/05/19 5:53 PM)[facility] 22:43:00See Note 1(12/05/19 5:43 PM)[facility] 22:43:001+ *ABN*(12/05/19 5:43 PM)[facility] 2019-12-05 22:21:00Product available (12/05/19 5:21 PM)[facility] MKBCEBH0480-37-44 06:02:00Negative (12/05/19 1:02 AM)[facility] ZIFEWNR7488-23-81 06:02:00Result Note 5(12/05/19 1:02 AM)[facility] DIQRCULGOF2421-57-75 06:02:00 Test Item Value Reference Range Interpretation Comments PT (test code = PT) 12.8 s 12.0-14.7 [facility] CenterLfhbkuxRVAKWXQWNH4872-44-83 06:02:00 Test Item Value Reference Range Interpretation Comments INR (test code = INR) 0.96 1 0.85-1.17 [facility]FyldcyjQISOJIFHVX4025-89-71 06:02:00 Test Item Value Reference Range Interpretation Comments PTT (test code = PTT) 28.3 s 22.9-35.8 [facility]annCHEM LUFND1905-67-51 09:52:29002Mwzvhllf HermannCHEM PANEL 2019-12-01 09:52:0016[facility]annCHEM DKHII3349-72-53 09:52:000.75[facility]annCHEM OGGXU1144-43-17 09:52:02651Pfaityim HermannCHEM YNQFJ5863-78-28 09:52:003.7[facility]annCHEM JCFNA5954-82-96 09:52:41822Hsfrutpe HermannCHEM PLTUQ5359-04-13 09:52:0029[facility]annCHEM CPYPQ7180-23-92 09:52:008.3 [facility]annCHEM KNLZB4326-73-55 09:52:0010.7[facility]annCHEM PANEL 2019-12-01 09:52:0080[facility] PjlnljwNCQBAXHLYZ2395-58-63 09:52:0011.0[facility] WnwplbnAOHDQBJXWG4898-62-06 09:52:004.45[facility] GhnmwlzMWQSVUBQXD1578-63-37 09:52:0013.7[facility] DuefzmpAXOKVGIHXQ7406-62-63 09:52:0041.0[facility] WEDLNPNUDB1463-79-80 09:52:0092.1[facility] QwzregwBQKRPVJWUT7089-49-21 09:52:00 Test Item Value Reference Range Interpretation Comments MCH (test code = MCH) 30.7 pg 27.0-31.0 [facility] GbqstttJJSPKVEGHF6931-92-84 09:52:0033.4[facility]annHEMATOLOGY 2019-12-01 09:52:0016.7[facility] MtjsdssIINLSUOQOJ0116-71-44 09:52:57908Cgwbwsrq UcumvwwPRGACNXYYK9650-80-43 09:52:009.6[facility] BhtepovKDYIDTBNAJ9377-49-98 09:52:0067.9[facility] CaiopyfHNTHNPAHYY8842-84-65 09:52:0020.7[facility] QUQMLCRRMJ5033-17-69 09:52:009.8[facility] CoofbsqRRFZXMNCPX5537-67-85 09:52:000.7 [facility] XfsgydrXIXOLTLJCM5909-44-69 09:52:000.9[facility]annHEMATOLOGY 2019-12-01 09:52:007.4[facility] DweydnsXPXJWNDGYT6195-94-41 09:52:002.3[facility] SdawayqITBNRBMUTZ5719-33-32 09:52:001.1[facility] WkzfirhEGZIRXKUBH1468-41-57 09:52:000.1[facility] JwhayxfRYPNWJOOMU9225-27-37 09:52:000.1[facility]annURINE AND TCSMG9289-80-58 01:14:00Light Yellow *NA*(11/30/19 8:14 PM)[facility] URINE AND TTRTV2123-69-28 01:14:00Clear (11/30/19 8:14 PM)[facility] HCBSQ2838-02-25 01:14:00 Test Item Value Reference Range Interpretation Comments UA Spec Grav (test code = UA Spec 1.012 1 Grav) [facility] KJJPZ6174-40-23 01:14:00 Test Item Value Reference Range Interpretation Comments UA pH (test code = UA pH) 7.0 1 5.0-8.0 [facility] QQOMI9436-22-02 01:14:00Negative *NA*(11/30/19 8:14 PM) [facility] DCEYI9018-01-31 01:14:00Small *ABN*(11/30/19 8:14 PM) [facility] VTMQK9088-23-34 01:14:00<1.0[facility] XZOVQ9841-00-36 01:14:00Negative (11/30/19 8:14 PM)[facility] EYDSB4637-98-04 01:14:00Negative (11/30/19 8:14 PM)[facility] STOOL 2019-12-01 01:14:00<1[facility] CZCMP5149-06-45 01:14:001 [facility] GsijehaWFCHBYUDTW4716-89-45 11:13:004.40[facility]annHEMATOLOGY 2019-11-30 11:13:0013.0[facility] AvhtzaxCCCIMSMYMK0401-49-70 11:13:0040.0[facility] CqyzywhDVLMRDZXUJ3409-53-91 11:13:0091.0[facility] FjmcgelZGAOJHJEIW6611-00-86 11:13:00 Test Item Value Reference Range Interpretation Comments MCH (test code = MCH) 29.5 pg 27.0-31.0 [facility] ZjejecgPMMYXMFEYF6557-50-14 11:13:0032.4[facility]annHEMATOLOGY 2019-11-30 11:13:0016.5[facility] JmnvkjlVJVYXMXJZS5797-45-20 11:13:65140Qabdnutt NnokrwrNZWENPELEJ4136-03-42 11:13:0010.0[facility] EdtnyxlMQMIAWFYUT0593-91-19 11:13:00 Test Item Value Reference Range Interpretation Comments PT (test code = PT) 13.3 s 12.0-14.7 [facility] RqnhllyRSTJQETVGQ6779-04-42 11:13:00 Test Item Value Reference Range Interpretation Comments INR (test code = INR) 1.01 1 0.85-1.17 [facility] AmvhhhzUVYYRISPMB3879-43-10 11:13:00 Test Item Value Reference Range Interpretation Comments PTT (test code = PTT) 29.5 s 22.9-35.8 [facility] PealtapGVMXEZCNQZ0827-66-56 11:13:0059.5[facility]annHEMATOLOGY 2019-11-30 11:13:0029.2[facility] EiszkzjZMUOERORZJ3342-59-49 11:13:009.3[facility] TmxbwcpNBMDSMGSDN2841-14-98 11:13:001.0[facility] WmtcnyyYJOFWWISAL3118-82-39 11:13:001.0[facility] UfykvluMXXWENPZXO2954-54-16 11:13:006.3[facility] MFQUTLTCNM1440-95-97 11:13:003.1[facility] BnyvzbjNUKPLQEYPZ0802-97-79 11:13:001.0 [facility] HdejhxoUQCMLPNYSZ3958-68-38 11:13:000.1[facility]annHEMATOLOGY 2019-11-30 11:13:000.1[facility] HermannCHEM GFDBC6041-81-19 11:13:22428Hnculhds HermannCHEM OVIXG3149-81-50 11:13:0022[facility] HermannCHEM PEKYV5271-01-39 11:13:000.83[facility]annCHEM ZOIYR3045-01-76 11:13:69681Iuwvjrmu HermannCHEM MZGJT8098-03-43 11:13:005.3[facility] HermannCHEM JYIIL2302-40-07 11:13:35724 [facility]annCHEM GQOTD3833-02-16 11:13:0028[facility]annCHEM PANEL 2019-11-30 11:13:007.8[facility]annCHEM FJKKR0649-61-24 11:13:0012.3[facility] HermannCHEM KGXIZ0599-71-88 11:13:0071[facility] UxneycoZGLWXHPPIA9811-04-29 11:13:0010.6[facility]annBLOOD BANK BSTVMWC6556-56-59 09:04:00Negative (11/29/19 4:04 AM)[facility]annCHEM AUIKK2559-89-02 09:04:0097[facility] CHEM WBVWM2302-22-06 09:04:0026[facility]annCHEM BIUOQ3215-50-22 09:04:000.90 [facility]annCHEM COSEN5925-74-37 09:04:67140Qoynbrxx HermannCHEM PANEL 2019-11-29 09:04:003.9[facility] HermannCHEM CIPQI0891-70-46 09:04:09121Fzwdvlrs HermannCHEM IGVCS7122-72-88 09:04:0032[facility] HermannCHEM FXGUH6902-08-10 09:04:008.7[facility]annCHEM QMXCQ2439-75-87 09:04:005.9[facility]annCHEM RIBZV1681-14-57 09:04:0064[facility] GmnyxedDJOEUXCLXM5492-81-08 09:04:00 Test Item Value Reference Range Interpretation Comments PT (test code = PT) 13.6 s 12.0-14.7 [facility] XsmsnfiTEXEFCFXUZ1714-07-07 09:04:00 Test Item Value Reference Range Interpretation Comments INR (test code = INR) 1.04 1 0.85-1.17 [facility] XhqxohxBGBQXXJPRJ8579-98-99 09:04:00 Test Item Value Reference Range Interpretation Comments PTT (test code = PTT) 30.9 s 22.9-35.8 [facility] RhuoqgfJJOTSBRODQ4963-27-77 09:04:0010.6[facility]annHEMATOLOGY 2019-11-29 09:04:004.50[facility] MlysxepMSMIBIVWLL6941-71-16 09:04:0013.5[facility] OmqdspfDQEGHTEVRR0556-92-85 09:04:0040.4[facility] VusafroHXLCPQCQEK2401-30-37 09:04:0089.8[facility] EhpjcylQIZGXDWHTT6372-21-92 09:04:00 Test Item Value Reference Range Interpretation Comments MCH (test code = MCH) 30.0 pg 27.0-31.0 [facility] KkzgytpQSDGUZQHLH7787-57-34 09:04:0033.4[facility] HermannHEMATOLOGY 2019-11-29 09:04:0016.7[facility] BaltarqNZNUOINDYE8310-98-94 09:04:75338Inuumvwc EeswzfzGFUUBNVPAM2058-01-95 09:04:009.5[facility] QjwvuefTXDMTKUQTO0690-40-23 09:04:0065.7[facility] YsoichwGPLFJTZZYN0845-45-62 09:04:0024.6[facility] VRUDJAMSLI2099-43-00 09:04:008.2[facility] QdjverxIDSLTSXWFM6375-53-72 09:04:000.8 [facility] IiduekpMHPTHZSRUB1069-91-44 09:04:000.7[facility] HermannHEMATOLOGY 2019-11-29 09:04:006.9[facility] TzqxsfoZWVLBKSMFA0813-04-76 09:04:002.6[facility] IpsubuqOWXFUAPUTP7901-61-23 09:04:000.9[facility] SjemawvJUMPKXOTCP0093-89-84 09:04:000.1[facility] OngvwuxFRFCJLNFWU5914-80-29 09:04:000.1[facility] JIVZPFZKDC2545-37-18 21:00:00Not Detected (11/27/19 4:00 PM)[facility]annCHEM LPUPW7831-86-33 09:32:77116Fywhzuhb HermannCHEM VITFV1697-94-02 09:32:0024 [facility]annCHEM TYSZO5225-05-52 09:32:000.60[facility]annCHEM PANEL 2019-11-27 09:32:33401Ohbhwkks HermannCHEM CSJGY1979-73-00 09:32:003.4[facility] HermannCHEM AYLON3883-65-39 09:32:45122Eaoetvex HermannCHEM LCJSG3760-42-84 09:32:0029[facility] HermannCHEM DIFEM5081-95-06 09:32:008.3[facility] HermannCHEM LUYBK5698-91-12 09:32:0010.4[facility] HermannCHEM LMLPU3751-86-68 09:32:0091 [facility] NtkjdhyEHJMCTJUNT5696-29-43 09:32:0010.2[facility] HermannHEMATOLOGY 2019-11-27 09:32:004.57[facility] XitxajyZPYNSUHKGC5682-31-86 09:32:0013.6[facility] PustokrLVGPVLZMZT4613-39-20 09:32:0041.4[facility] SrbbudpNKJNURISHP7862-59-13 09:32:0090.4[facility] WhibtqrULXHHKGJFI4182-09-07 09:32:00 Test Item Value Reference Range Interpretation Comments MCH (test code = MCH) 29.8 pg 27.0-31.0 [facility] GpdrknfSJFASTPFCC5237-44-62 09:32:0032.9[facility] HermannHEMATOLOGY 2019-11-27 09:32:0016.7[facility] ZuapzfaETUIGXGZYN7012-00-46 09:32:71736Jfxjncpp EekescmKCRBMOXDIK2665-11-43 09:32:009.8[facility] XqpaatrTKPWQY6691-18-80 09:18:00 167[facility] LwrrbwpFNCLFA8968-50-27 09:18:61866Gxxhqbla HkjezzhEQEFRB6646-93-90 09:18:0050[facility] TgfsepgHPJBYI6663-00-21 09:18:00 Test Item Value Reference Range Interpretation Comments CHD Risk (test code = CHD Risk) 3.02 1 3.90-5.80 [facility] BeihovhNJBTHC1812-74-16 09:18:0068[facility] CaoxuzaJLPZBH9598-99-51 09:18:00 Test Item Value Reference Range Interpretation Comments VLDL (test code = VLDL) 33 1 [facility]annSPECIAL LLRHXCSYH5438-80-92 09:18:008.5[facility] MJEFMDVCAY4404-05-13 03:47:000.45[facility] HermannCHEM XYRUN0828-16-24 12:04:00 132[facility] HermannCHEM ZLLUP0595-53-33 12:04:0019[facility] HermannCHEM PANEL 2019-11-24 12:04:000.76[facility] HermannCHEM FWOZJ3342-27-55 12:04:07384Xlibhams HermannCHEM IXVSE7618-36-82 12:04:003.7[facility] HermannCHEM QXCKF8707-58-68 12:04:51742Nwrnmvql HermannCHEM VXSGI9049-25-51 12:04:0027[facility] HermannCHEM JJBPJ3368-80-59 12:04:009.7[facility] HermannCHEM UDDWC6340-80-12 12:04:008.7 [facility]annCHEM OEYEF7366-94-83 12:04:0079[facility]annHEMATOLOGY 2019-11-24 12:04:0090.7[facility] WxecuerVYDZBBRLBO3763-51-60 12:04:006.4[facility] PxpbvfpUWOJRDNWNK4713-28-29 12:04:002.1[facility] NwgsuysGZHBROKJLZ0653-58-39 12:04:000.3[facility] ApzcynnIGYQFDVPDJ5035-24-02 12:04:000.5[facility] UBAOQURIGE4915-54-79 12:04:0015.1[facility] UtjqrmaNJUEUQCWBB6096-18-97 12:04:00 1.1[facility] LrqbuvtAKOFMJJZBP1704-96-27 12:04:000.3[facility] HermannHEMATOLOGY 2019-11-24 12:04:000.1[facility] DpuppyjNAMFNMKIWM3967-62-44 12:04:0016.7[facility] NyzyvlnXXSQKIRBTA9953-22-31 12:04:005.00[facility] PsmyuwtQPDJXZADEL9508-75-99 12:04:0015.1[facility] AilnzgtCCWSLYSZXG2704-91-43 12:04:0045.1[facility] NXYWYBIGHF7662-65-44 12:04:0090.2[facility] YlvqvqyMGELZKLJTC8193-55-08 12:04:00 Test Item Value Reference Range Interpretation Comments MCH (test code = MCH) 30.1 pg 27.0-31.0 [facility] HrufspgMMXYQTLERL2716-19-38 12:04:0033.4[facility]annHEMATOLOGY 2019-11-24 12:04:0016.3[facility] MghrdadVYYJDILWZQ6562-30-72 12:04:22802Xogpaqfr JmlqsqtOKVWIXCIMD7703-21-80 12:04:009.6[facility] HermannCHEM ERNTV8113-29-56 16:14:71889Alxkjpud HermannCHEM OMIDO1704-17-07 16:14:0018[facility] HermannCHEM HUEBM5890-06-00 16:14:000.96[facility] HermannCHEM OTTMK2810-65-06 16:14:70954 [facility]annCHEM XMKLX0399-00-91 16:14:004.3[facility] HermannCHEM PANEL 2019-11-23 16:14:26266Samoscrm HermannCHEM SZGRA7237-85-10 16:14:0026[facility]annCHEM NEBTO8090-64-97 16:14:0010.3[facility]annCHEM TGQZP8916-76-66 16:14:008.8[facility] HermannCHEM AJDDA8461-14-58 16:14:0059[facility] DGEYTSCKBR6043-03-32 09:51:0081.3[facility] NcjkmvdRPDVDBWZKL4524-26-69 09:51:00 11.5[facility] HpujearOWXORJJMBR3318-16-79 09:51:005.4[facility]annHEMATOLOGY 2019-11-23 09:51:000.8[facility] UtwdsbxPNJWRONOXH0381-39-95 09:51:001.0[facility] PbcdnqsJLBUCDEENE2782-13-48 09:51:0015.8[facility] OlkopzeQKCFJLJKHQ2213-06-23 09:51:002.2[facility] XhnxgzpOHSUIKDUNG6264-77-12 09:51:001.1[facility] OAQYMZTQVW9029-16-53 09:51:000.2[facility] HxusxheQLHXQGBEUR0695-31-40 09:51:000.2 [facility] VfheyqlQGOKFZNCVC4981-83-53 09:51:0019.4[facility]annHEMATOLOGY 2019-11-23 09:51:005.40[facility] YyunultKAVUGEWZYJ7262-18-68 09:51:0016.1[facility] QlzmitvACYBHYDFZL8581-95-06 09:51:0049.1[facility] RmynhinPFIZDFWIXI2726-46-84 09:51:0091.0[facility] FuxjquuTWCKSCOQZG5763-09-68 09:51:00 Test Item Value Reference Range Interpretation Comments MCH (test code = MCH) 29.9 pg 27.0-31.0 [facility] ErexwgbGJIKBUALYS2581-70-96 09:51:0032.9[facility]annHEMATOLOGY 2019-11-23 09:51:0016.7[facility] UrhyfzbWABLNLSBHY5438-95-10 09:51:16334Odcaccxa JfkxcbvCQQFHFXSNA1103-83-60 09:51:009.8[facility] HermannCARDIAC UDCFMEM4698-89-43 02:28:000.04[facility] HermannCHEM KAJXV0552-35-55 02:28:001.7[facility] HNRIXAYJFN7720-23-28 16:05:00Not Detected (11/22/19 11:05 AM)[facility]annCHEM NZUCU9754-46-15 12:35:002.6[facility]URINE AND XAIMK8488-52-78 12:20:00 Veronique *ABN*(11/22/19 7:20 AM)[facility] RMNFP4049-91-03 12:20:00 Slight *ABN*(11/22/19 7:20 AM)[facility] TDFSH9112-81-35 12:20:00 Test Item Value Reference Range Interpretation Comments UA Spec Grav (test code = UA Spec 1.035 1 Grav) [facility] JKOFY5913-28-13 12:20:00 Test Item Value Reference Range Interpretation Comments UA pH (test code = UA pH) 5.0 1 5.0-8.0 [facility] NCEGV6612-43-77 12:20:00Negative *NA*(11/22/19 7:20 AM) [facility] WGXHI3895-80-44 12:20:00Negative (11/22/19 7:20 AM) [facility] QKVKW3716-68-65 12:20:002.0[facility]UR[facility] AND CCTTT5197-37-03 12:20:00Negative (11/22/19 7:20 AM)[facility] ALOHY8971-06-49 12:20:00Negative (11/22/19 7:20 AM)[facility] MNWIC2709-53-25 12:20:001[facility]UR[facility] DMSHY1282-51-22 12:20:007 [facility] AND YKUZW1623-72-46 12:20:004[facility]annHEMATOLOGY 2019-11-22 11:40:57 Test Item Value Reference Range Interpretation Comments PT (test code = PT) 12.4 s 12.0-14.7 [facility]MfkyynkAFADWTBOYU3305-43-58 11:40:57 Test Item Value Reference Range Interpretation Comments INR (test code = INR) 0.92 1 0.85-1.17 [facility] HospitalBhoofcsVMKLDISLJT8875-79-53 11:40:57 Test Item Value Reference Range Interpretation Comments PTT (test code = PTT) 25.1 s 22.9-35.8 [facility] HospitalHxbqeanIHVGYNAMVM5396-54-19 11:40:57 Test Item Value Reference Range Interpretation Comments ACT (TEG) Rapid (test code = ACT (TEG) 89 s 86-118 Rapid) [facility]QawduluSAEMFOACPX7644-16-65 11:40:57 Test Item Value Reference Range Interpretation Comments Split Point Rapid (test code = Split 0.3 min Point Rapid) [facility] HospitalNnuxqpcXXCCTXCYAC1518-26-58 11:40:57 Test Item Value Reference Range Interpretation Comments R-time Rapid (test code = R-time 0.4 min 0.4-0.7 Rapid) [facility] HospitalHwxjqsuVKGHJVVZUX4967-11-83 11:40:57 Test Item Value Reference Range Interpretation Comments K-time Rapid (test code = K-time 1.3 min 0.6-2.3 Rapid) [facility] HospitalGokbkuqRBLQKFHBVA1882-75-22 11:40:57 Test Item Value Reference Range Interpretation Comments Angle Rapid (test code = Angle 75 degrees 64-80 Rapid) [facility] HospitalAmnyrekCGHLYMJMXM6430-24-06 11:40:57 Test Item Value Reference Range Interpretation Comments Max Amplitude Rapid (test code = Max 64 mm 52-71 Amplitude Rapid) [facility] TiooiizAMZOVUYQZU4051-41-28 11:40:579.0[facility] HermannHEMATOLOGY 2019-11-22 11:40:570.0[facility] KqbcwdxXFSVOZZMLY6174-26-09 11:40:57Normal (11/22/19 6:40 AM)[facility] BchihziDJGGHTYLRM8363-48-22 11:40:57Normal (11/22/19 6:40 AM)[facility] HpmnvjbRQSPAPUIHG0822-87-36 11:40:5777.5[facility] DOBMCYGJUJ9981-50-73 11:40:5714.2[facility] SmkyvgsDMKGXSTTAR0854-64-83 11:40:57 6.8[facility] GuwjsleYVVYYKXOUQ8345-74-86 11:40:570.2[facility] HermannHEMATOLOGY 2019-11-22 11:40:571.3[facility] KtzdhhoKKVKPHLMRJ2952-71-57 11:40:5716.9[facility] VzpmmfzKDWQKNNSVS9513-00-07 11:40:573.1[facility] QfpnxeiMBANZIRBEZ8369-58-84 11:40:571.5[facility] CxttcuxULMLMECYON1057-73-06 11:40:570.1[facility] BJBOFSUWTL2679-62-95 11:40:570.3[facility]annBLOOD BANK ZWGSORC9005-19-95 10:56:00Negative (11/22/19 5:56 AM)[facility] HermannCARDIAC UOIUJPW6363-34-11 10:52:73457Ykiubgvb HermannCARDIAC AJQKOWD8890-09-19 10:52:330.05[facility] HermannCHEM WITMZ4043-43-60 10:52:335.8[facility] HermannCHEM KAXCQ6631-65-09 10:52:332.4[facility] HermannCHEM UGCVV8158-98-43 10:52:01544Kjkqtffb HermannCHEM ACVPT6518-83-56 10:52:03163Oqouqdcf HermannCHEM PUYDQ0265-93-34 10:52:331.2 [facility]annCHEM TKZDW9648-07-24 10:52:330.3[facility] HermannCHEM PANEL 2019-11-22 10:52:330.9[facility] HermannCHEM DVNQL7154-42-90 10:52:333.4[facility] HermannCHEM JDRRO2299-44-72 10:52:33 Test Item Value Reference Range Interpretation Comments A/G Ratio (test code = A/G Ratio) 0.7 1 0.7-1.6 [facility]annCHEM GYGBF5361-52-95 10:52:20093Labwlbof HermannHEMATOLOGY 2019-03-04 17:02:0060.1[facility] ZsgcsrmKTKOTJVRGH1889-95-39 17:02:0032.3[facility] MfreibyVGILYFVWNA1208-21-90 17:02:005.9[facility] BuuvpfnYCPZSTNYTP2257-53-50 17:02:000.7[facility] XexanbjHRTOIOLHFX0768-66-78 17:02:001.0[facility] DMFZEPJLTZ6141-30-32 17:02:004.3[facility] QztkuotXZPXKQYMPQ8142-24-96 17:02:002.3 [facility] VylhgauEHQIICWPCC2544-02-21 17:02:000.4[facility] HermannHEMATOLOGY 2019-03-04 17:02:000.1[facility] DtpjnqyNPENUAEAUR8550-22-11 17:02:002[facility] WzppgkwSEYOYEOMKH9047-36-50 17:02:007.2[facility] KqdgeffUXUCVLPLTO3515-50-69 17:02:003.76[facility] PbvoctfFRWWCPFRIS4315-36-80 17:02:0012.1[facility] FZOMAAJYPZ8372-76-36 17:02:0036.8[facility] AvfxxwbOICQZASVBA2143-67-22 17:02:00 97.9[facility] BdynaufJMWNXMMYHY2473-71-77 17:02:00 Test Item Value Reference Range Interpretation Comments MCH (test code = MCH) 32.1 pg 27.0-31.0 [facility] EgbqcnpOFSOGUCBBD4288-73-50 17:02:0032.8[facility] HermannHEMATOLOGY 2019-03-04 17:02:0016.7[facility] RaabhfbEMUEDBYJLN3843-04-45 17:02:19326Ptpeqtdi UxfgkuuHHJMCYKGEG2521-30-55 17:02:008.9[facility] OnavyznOKGEFNCQKP5408-12-18 17:02:00<2.9[facility]annBL[facility]OD BANK JLUYJWT1189-25-28 12:49:00Negative (02/26/19 7:49 AM)[facility] OmwhjccFYFZUNYOTV3082-22-67 09:11:0067.8[facility] SzfuswyNPYJKIGOQC7882-70-50 09:11:0022.9[facility] AycmjdmBKJDTYZDJT9074-49-59 09:11:007.8[facility] OgscdmnNMLATUSXZC5734-30-03 09:11:000.4[facility] ZJEFIARIZM6169-87-19 09:11:001.1[facility] ZounolvAHDJEAGDRG8361-54-94 09:11:006.3 [facility] CcmdcivROXJZCSQSR4761-11-26 09:11:002.1[facility]annHEMATOLOGY 2019-02-25 09:11:000.7[facility] AmrhjqdPWCPDEHEBQ1416-39-64 09:11:000.1[facility] NctvidiTNEIGTRWOO9391-43-94 09:11:001+ *ABN*(02/25/19 4:11 AM)[facility] MOCYHXEIQM9616-82-05 09:11:009.2[facility] JubsxtjOFAAWPMAOF0455-99-57 09:11:00 3.50[facility] LyukpetFMBHRBZAVY5215-86-52 09:11:0011.5[facility]annHEMATOLOGY 2019-02-25 09:11:0035.5[facility] MvzkkolBYHJPSJSOA5653-80-45 09:11:90194.5 [facility] BplchheQTJPVCMYEA6382-67-84 09:11:00 Test Item Value Reference Range Interpretation Comments MCH (test code = MCH) 32.7 pg 27.0-31.0 [facility] SlhjewvWTGRIVRZUX7007-59-29 09:11:0032.2[facility]annHEMATOLOGY 2019-02-25 09:11:0017.4[facility] FvsquhhKBFWWTZKGE3439-32-04 09:11:35558Zzeefqux AzqedmgQSKJYTKPBC5199-38-65 09:11:009.2[facility] HermannCHEM VPRUB5733-55-35 10:17:04024Oghqunhu HermannCHEM UYYQZ3000-47-44 10:17:0020[facility]annCHEM TVGTB8400-11-06 10:17:000.89[facility]annCHEM RXGFP3915-24-27 10:17:66670 [facility]annCHE[facility] ZCFXX8168-43-31 10:17:004.3[facility]annCHEM PANEL 2019-02-22 10:17:58113Nnxfjhai HermannCHEM ENHZK3444-16-33 10:17:0027[facility]annCHE[facility] GDHEE3862-65-60 10:17:0013.3[facility]annCHEM ZFJEC2454-72-44 10:17:008.9[facility]annCHEM CGEHR4895-80-09 10:17:0065[facility] LGQMPKNKNH4899-61-74 10:17:0063.7[facility] KcudpkzBHPJHKZMJG4560-87-25 10:17:00 26.8[facility] XzforskIQNZSOPFZO9119-11-94 10:17:008.0[facility]annHEMATOLOGY 2019-02-22 10:17:000.4[facility] ZvdztljFMKVCYYTIH2842-85-82 10:17:001.1[facility] UqbkscsLIHSBVUGXJ0662-76-64 10:17:006.4[facility] CzezzfmVFOUDVMCLX1911-82-46 10:17:002.7[facility] CacrskhOVIRZMPHSE3972-51-94 10:17:000.8[facility] RYAQLEZJBJ9610-13-56 10:17:000.1[facility] IheuzrzGWJYMVIJLL8817-34-80 10:17:00 10.1[facility] QmheyhkTKCLHUOFMW6022-43-53 10:17:003.93[facility]annHEMATOLOGY 2019-02-22 10:17:0012.7[facility] OosckfxENYIQVDXQM6988-85-98 10:17:0038.8[facility] XozkosdCDRIURGVZO2316-21-21 10:17:0098.9[facility] XnceekaWFUPFBPZJH2991-12-19 10:17:00 Test Item Value Reference Range Interpretation Comments MCH (test code = MCH) 32.4 pg 27.0-31.0 [facility] OclzvugCRKHUAHFBB9307-28-56 10:17:0032.7[facility]annHEMATOLOGY 2019-02-22 10:17:0017.3[facility] PedmpdiUUOIZYFUUN5040-21-00 10:17:24854Vuncvlsi BsezlfyVYHDNDKTTA5705-83-73 10:17:009.8[facility] HermannCHEM ASQVL7076-40-35 10:59:0095[facility]annCHEM IFSYH2394-65-82 10:59:0018[facility]annCHEM JRTHZ8675-64-10 10:59:000.77[facility] HermannCHEM ZACAA9990-89-17 10:59:32390 [facility]annCHEM EGLAB0452-73-00 10:59:004.1[facility] HermannCHEM PANEL 2019-02-21 10:59:92338Idcvoqcc HermannCHEM TADCQ3615-24-04 10:59:0026[facility]annCHEM GQOFB2466-45-52 10:59:008.5[facility] HermannCHEM ZRDLW0496-15-47 10:59:0078[facility]annCHEM CCIUU4782-83-06 10:59:0012.1[facility]annCHEM JQLTS6633-73-10 10:59:002.0[facility]annCHEM LAMDG3949-66-02 10:59:003.5 [facility] VrlchflWEMXVFWMQEUV7058-49-21 09:46:0011.1[facility] HermannELECTROLYTES 2019-02-19 09:46:0073[facility] EraizwxJRJIOEEIRVYP5034-37-34 09:46:0021[facility] UsthyxgMSGIOUVTCQPE1802-28-83 09:46:000.66[facility] LjqglycQXVUFKYOVQDR0655-15-58 09:46:69689Nabyzmye XsititqSHMGLPJNXWQG5172-28-54 09:46:004.1[facility] GZJVLMWTLSBB9803-64-50 09:46:10924Xdifpovh GlhidqhTNQAKICARSOV8386-16-81 09:46:0026[facility] UbgflklSDUFPBDIQVMJ9210-69-42 09:46:008.6[facility] QNTPTMNEPRAR8655-92-85 09:46:002.1[facility] WenlbqgGFIKFFEBVETH7524-73-31 09:46:003.0[facility] KbhnapbWAZMDODBTHHR7208-25-69 09:46:0088[facility] UYJJAEONEQ5649-07-39 09:46:000.1[facility] HermannCHEM SJIHE9434-47-05 08:45:002.4 [facility]annCHEM XVXYL0423-08-59 08:45:005.0[facility]annHEMATOLOGY 2019-02-18 08:45:000.0[facility] QucsqbcSAFNFJBFWA3054-97-26 08:45:002.0[facility] SomkpdnBDSESPXIGA1730-28-09 08:45:000.0[facility] SdrerqyLFLQBOJDGC1127-65-40 08:45:001[facility] VtgggnkGNUABMXRRR8311-73-39 08:45:00Normal (02/18/19 3:45 AM) [facility] VognlrhAYIENRQOWN1222-19-05 08:45:001+ *ABN*(02/18/19 3:45 AM)[facility] YsixyrtIBWRSEBTZE0966-62-48 02:24:0018.8[facility] AmmvcfhEKMDSKAGJG7007-57-17 02:24:00 Test Item Value Reference Range Interpretation Comments Roya FLORESD (test code = Roya Couch 2200 1 TND) [facility] EzyyxaeKGGRSGUKVE1392-84-05 07:22:001.0[facility] HermannHEMATOLOGY 2019-02-16 07:22:002.0[facility] NdsixbxNKMQNERYDC5831-41-76 07:22:003.0[facility] EfmuqnzZARHHGCVVQ5722-67-28 07:22:000.0[facility] JcklbhdFZTLQIIUAY7552-75-58 16:09:000.2[facility] IhemrerWRSOOICCWQ1385-80-06 16:09:000.0[facility] EZXNEVRXDJ2557-16-23 16:09:001.0[facility] BivwybsGVYGUEABQE2357-93-08 16:09:001.0 [facility] McdehliEYOLSHLSSH8184-22-53 16:09:000.0[facility]annHEMATOLOGY 2019-02-15 16:09:002+ *ABN*(02/15/19 11:09 AM)[facility]annHEMATOLOGY 2019-02-15 16:09:001+ *ABN*(02/15/19 11:09 AM)[facility]annHEMATOLOGY 2019-02-13 10:40:000.4[facility] XmezwvkHVZCMLFSFF4860-01-30 10:40:001+ *ABN*(02/13/19 5:40 AM)[facility] JazgmtiOHLGXHLEPI4267-70-92 20:53:0096.6[facility] HermannCHEM JQWZB7478-33-81 07:43:001.6[facility] HermannCHEM CSSHP9881-94-33 01:51:002.4[facility] BvjihfjVTGAVIZPCS2909-61-51 01:51:0012.1[facility] TRIMETHOPRIM+SULFAMETHOXAZOLE:SUSC:PT:ISOLATE:ORDQN:UCS0661-46-85 18:43:00 Staphylococcus aureusMem[facility] TRIMETHOPRIM+SULFAMETHOXAZOLE:SUSC:PT:ISOLATE:ORDQN:XJW5925-92-82 18:43:00 Enterococcus SpeciesMem[facility] TRIMETHOPRIM+SULFAMETHOXAZOLE:SUSC:PT:ISOLATE:ORDQN:JNB3440-49-06 18:43:00 Proteus mirabilisMemorial PyfetumIKJREGWDVL6691-47-30 14:43:0014.3[facility] HermannCHEM MSIAG3859-31-90 03:40:001.6[facility] HermannCHEM BXZXN9895-03-21 14:04:002.1[facility] MvznrsfGEYUQDILKO9101-38-47 14:04:00Normal (02/09/19 9:04 AM) [facility] LaqvevnFABAPZXCYH7578-05-42 14:04:00Normal (02/09/19 9:04 AM)[facility] HermannPARATHYROID ZZBOLTB6882-10-29 14:04:001.06[facility] HermannPARATHYROID SKZFLQD1560-81-96 14:04:001.04[facility]annURINE AND YQADD2267-09-57 08:55:00 Yellow *NA*(02/08/19 3:55 AM)[facility] LSXKW2038-09-92 08:55:00 Marked *ABN*(02/08/19 3:55 AM)[facility] XWHMW4680-10-25 08:55:00 Test Item Value Reference Range Interpretation Comments UA Spec Grav (test code = UA Spec 1.022 1 Grav) [facility] FBYGM9420-08-58 08:55:00 Test Item Value Reference Range Interpretation Comments UA pH (test code = UA pH) 5.0 1 5.0-8.0 [facility] TDHRD4387-80-41 08:55:00Negative *NA*(02/08/19 3:55 AM) [facility] NIYHU8771-38-18 08:55:00Negative (02/08/19 3:55 AM) [facility] XUBLU4954-36-07 08:55:00<1.0[facility] ARKRG9949-88-21 08:55:00Negative (02/08/19 3:55 AM)[facility] ZGJWH4492-93-90 08:55:00Negative (02/08/19 3:55 AM)[facility] QHKPS4747-77-52 08:55:0013[facility] ULJJU4520-16-02 08:55:004 [facility] BKQSK4030-84-73 08:55:005[facility] CHEM 2019-02-08 08:55:0030[facility] ZXCQ1209-02-55 08:55:24391.00[facility] HermannCARDIAC KHKPWKC1818-99-57 06:59:00<0.02[facility] HermannHEMATOLOGY 2019-02-08 06:59:0095[facility] PpvjdiiLKJYSUFGHE9211-32-48 06:59:0081.9[facility] HermannPARATHYROID GBMXPDU6403-55-39 06:59:001.19[facility] HermannPARATHYROID BUFYLMO1184-20-83 06:59:001.17[facility] HermannCHEM XBJIG9418-48-40 01:53:74842 [facility]annPARATHYROID XTGEPQZ1446-71-39 06:52:001.08[facility] PARATHYROID FPYLFZL1133-43-50 06:52:001.09[facility] HermannANEMIA DKVQC8961-83-40 19:48:48167Volzjbbh HermannANEMIA HGVGI5426-41-59 19:48:0016.9[facility] CHEM TOVTD3573-86-87 19:48:0013.0[facility] HermannCHEM HWMDY8124-61-19 19:48:00 172.6[facility] HcmpscnHSRBUHUZHI2834-89-28 19:48:0017.3[facility] HermannIMMUNOLOGY 2019-02-06 19:48:70135Eqihuycs HermannSPECIAL HBVZGPSWK2397-36-00 19:48:008.5 [facility]annCARDIAC EIISKPC6464-98-20 19:43:000.03[facility] HermannCARDIAC OJLASSC8580-35-41 19:43:95232Kdjtlapz HermannCARDIAC HPBLBMK7636-34-91 19:43:00 1.5[facility] HermannCARDIAC LEMTRIJ0873-44-28 19:43:00 Test Item Value Reference Range Interpretation Comments CK MB Index (test 0.8 1 See_Comment [Automate d message] The code = CK MB Index) system w [facility] generated this result transmit porsche reference range : <=2.5. The reference range was not used to interpr et this result as alexia l/abnormal. [facility]annCHEM WFZCJ3590-80-83 19:43:00 Test Item Value Reference Range Interpretation Comments B/C Ratio (test code = B/C Ratio) 16 1 6-25 [facility]annCHEM APJVZ6649-48-86 19:43:006.4[facility] HermannCHEM PANEL 2019-02-05 19:43:002.2[facility] HermannCHEM YEPQL0163-15-41 19:43:004.2[facility] HermannCHEM CLZKC8948-25-54 19:43:00 Test Item Value Reference Range Interpretation Comments A/G Ratio (test code = A/G Ratio) 0.5 1 0.7-1.6 [facility]annCHEM TVHJG7459-35-25 19:43:92797Bqlnoqcy HermannCHEM PANEL 2019-02-05 19:43:72351Jfknojjw HermannCHEM NZIXK0209-11-79 19:43:000.6[facility] HermannCHEM KNAXO4894-90-09 19:43:75142Pwzkzlcu HermannCHEM VHVAD7456-15-41 19:43:006.5[facility] AND LQPBF9430-32-35 19:43:00Dark Yellow *NA*(02/05/19 2:43 PM)[facility] ELBQN9568-01-50 19:43:00Marked *ABN*(02/05/19 2:43 PM)[facility] NEGOE3728-03-29 19:43:00 Test Item Value Reference Range Interpretation Comments UA Spec Grav (test code = UA Spec 1.022 1 Grav) [facility] GDKCQ3635-10-71 19:43:00 Test Item Value Reference Range Interpretation Comments UA pH (test code = UA pH) 6.0 1 5.0-8.0 [facility] ENPUQ8118-90-93 19:43:00Negative *NA*(02/05/19 2:43 PM) [facility] XJWEL3520-82-70 19:43:00Negative (02/05/19 2:43 PM) [facility] CSVYY2374-33-87 19:43:002.0[facility] IHHUO2856-18-61 19:43:00Negative (02/05/19 2:43 PM)[facility] STOOL 2019-02-05 19:43:00Negative (02/05/19 2:43 PM)[facility] STOOL 2019-02-05 19:43:004[facility]UR[facility] AND VQHFK6824-48-39 19:43:002[facility] WhjmnbxZUJSMTNCNA8392-13-14 10:01:0012.0[facility] CzztwmdZINPNUBSQQ2561-60-59 10:01:002.2[facility] HvapqnoQYKWVEZFIC8359-82-38 10:01:000.8[facility] PKAOPYZJSQ2198-73-15 10:01:0078.0[facility] NrfvmlwUQAONKOXED5498-80-13 10:01:00 0.0[facility] ArcfdunLXBEKCMEUG6977-18-24 10:01:0014.0[facility] HermannHEMATOLOGY 2019 10:01:005.0[facility] ImvqlkbBCPSLHTYCY5013-88-84 10:01:001.0[facility] OcvloklKVRISWUDNP0637-12-67 10:01:002.0[facility] VqddohgDJLHXMFAVR8075-12-07 10:01:000.0[facility] ZzfwuofBRUYTMYJQT0691-69-45 10:01:003[facility] KOANFTDEBR8713-07-38 10:01:001+ *ABN*(01/09/19 5:01 AM)[facility] HermannHEMATOLOGY 2019 10:01:001+ *ABN*(01/09/19 5:01 AM)[facility] BfrtesxURRJJTFDSW4227-76-13 10:01:00Moderate *ABN*(01/09/19 5:01 AM)[facility] LbkrpelVYXOJATGHX4880-19-23 10:01:0015.4[facility] TzynbjqOQDCRTDRDA0273-28-60 10:01:002.79[facility] JMSIUFJIIK6766-39-24 10:01:009.6[facility] ZonteriRAWEYCYHSR3707-63-06 10:01:00 29.3[facility] ExcoezzVIZHLFZLWX7817-77-62 10:01:52885.8[facility] HermannHEMATOLOGY 2019 10:01:00 Test Item Value Reference Range Interpretation Comments MCH (test code = MCH) 34.5 pg 27.0-31.0 [facility] DzdetlzJTEIVPYJHF1342-69-79 10:01:0032.9[facility] HermannHEMATOLOGY 2019 10:01:0022.7[facility] NkhnjemWLGQQAZTZM3270-10-46 10:01:75316Cpousqco DedinylGMLQZNFQCP9533-77-83 10:01:009.8[facility] HermannCHEM SUXEQ3268-89-22 10:31:0079[facility] HermannCHEM EZGCW3831-93-46 10:31:0027[facility] HermannCHEM VUGLE8995-99-74 10:31:000.77[facility] HermannCHEM MNVLG9646-70-33 10:31:86889 [facility]annCHEM YRHJP8594-94-71 10:31:004.2[facility] HermannCHEM PANEL 2019-01-07 10:31:06231Pqkkqudd HermannCHEM LCAXH3270-04-38 10:31:0028[facility] HermannCHEM YWVUV8600-16-77 10:31:0012.2[facility] HermannCHEM EOZIV1965-63-77 10:31:008.6[facility] HermannCHEM GBEZO0290-69-60 10:31:0078[facility] HermannCHEM LBASF7773-96-40 10:31:002.1[facility] HermannCHEM HLXEB6937-12-58 10:31:003.7 [facility] ZijhymvXXGTIKHJTC7057-14-55 10:31:0014.2[facility] HermannHEMATOLOGY 2019-01-07 10:31:006.1[facility] YirbrirYLGNJWIHHW1147-39-23 10:31:000.4[facility] EoafzckADGBPTTDEV1109-72-80 10:31:000.2[facility] CboyayeFWWTSFZZXU2020-44-10 10:31:0067.0[facility] OamzjsaEGXYGGBPVQ8205-77-51 10:31:000.0[facility] NOXBDRQVGN3531-22-18 10:31:0029.0[facility] YkvwhoxEVPQEPWGFY3836-37-40 10:31:00 2.0[facility] XlhjombUTMKWUGLDZ5191-90-29 10:31:001.0[facility] HermannHEMATOLOGY 2019-01-07 10:31:001.0[facility] SmzuqpdCLDWCTDPZW2432-44-32 10:31:000.0[facility] SyodxplFIBSGEUZWH9445-86-93 10:31:002[facility] PdmpbdnRJUPRXBLLB2716-11-94 10:31:00Normal (01/07/19 5:31 AM)[facility] NykbnrqTPNUDRCSWV1097-25-57 10:31:001+ *ABN*(01/07/19 5:31 AM)[facility] JqmnccfLOPRDUEVUT7947-55-96 10:31:001+ *ABN*(01/07/19 5:31 AM)[facility] LurmijrPDQZVJGSIV9037-12-60 10:31:00Moderate *ABN*(01/07/19 5:31 AM)[facility] CukjdvmVKVFXDFSCS7836-76-57 10:31:0021.2[facility] KkddlujLSIRHSLONQ9707-92-47 10:31:002.83[facility] ClsmfmdXTVJDUDSEE4601-10-88 10:31:009.6[facility] JjakmmmCGAQZKCCHU4327-01-01 10:31:0029.6[facility] VAKUZSNKRR6323-03-06 10:31:89434.5[facility] RclwyseFKEITYDHGU9958-39-79 10:31:00 Test Item Value Reference Range Interpretation Comments MCH (test code = MCH) 33.9 pg 27.0-31.0 [facility] ThpoaqrICXDAIOWJQ8975-89-10 10:31:0032.4[facility] HermannHEMATOLOGY 2019-01-07 10:31:0019.9[facility] JdiaaaxLRVKANJCQM8344-83-29 10:31:92295Vurxzmyd WlvzdykOVGGYZPYQN6965-58-33 10:31:0010.6[facility] HermannCHEM FPAXI4676-28-03 19:41:07083Bezgoyrs HermannCHEM WNJNG4950-80-88 19:41:0027[facility] HermannCHEM TAEDS7609-20-63 19:41:001.34[facility] HermannCHEM YDUVJ4031-68-98 19:41:50706 [facility]annCHEM GIJNE7864-19-34 19:41:004.0[facility] HermannCHEM PANEL 2019-01-06 19:41:83064Qsllmslm HermannCHEM DIJZK2815-67-78 19:41:0027[facility] HermannCHEM EVQLN4577-55-58 19:41:008.3[facility] HermannCHEM XQCTO7872-02-28 19:41:0040[facility] HermannCHEM CRTKL0170-19-87 19:41:0016.0[facility] GYWKAYJBWB0510-78-15 19:41:0084.9[facility] LdtlcmoICPBFYNREH7340-83-94 19:41:00 11.4[facility] PviesxrUHMMUVWDWV8483-68-88 19:41:002.9[facility] HermannHEMATOLOGY 2019-01-06 19:41:000.2[facility] RkphkuaOWXCMULQCS4536-28-85 19:41:000.6[facility] SsobxplLTKNGABEOA1282-78-57 19:41:0012.0[facility] MyljimdWWDSJVKCUU0830-95-64 19:41:001.6[facility] OvkdejcTGEOKXENFA5905-84-45 19:41:000.4[facility] DVFXAVXXXI0550-62-00 19:41:000.1[facility] ZqpovwpPPJFIHKLMQ2772-40-77 19:41:001+ *ABN*(01/06/19 2:41 PM)[facility] HdvgmqxWMVMHSNZYJ2095-67-28 19:41:0014.1[facility] MtpcuxeZSXIXIXKWC3041-71-35 19:41:002.86[facility] IrubdytQIGXFUQOBJ0521-90-85 19:41:009.7[facility] IwigrsuORPSQYYCCH4914-60-73 19:41:0029.5[facility] CVPGKJRYQC8996-36-94 19:41:35802.3[facility] PvokrbuQHUQOJSRNW5051-69-01 19:41:00 Test Item Value Reference Range Interpretation Comments MCH (test code = MCH) 33.8 pg 27.0-31.0 [facility] SocdzlyHOMXIVQEIE5699-35-13 19:41:0032.7[facility] HermannHEMATOLOGY 2019-01-06 19:41:0020.1[facility] PjvneluCOAFQGGBHY6045-59-40 19:41:72876Twiygcra QuqmucmOQFIZCDYET9858-06-51 19:41:0010.2[facility] HermannCARDIAC ENZYMES 2019-01-04 17:50:0098[facility] QrrcyooORGGAPVEHCQE6914-78-00 17:50:0012.0[facility] RlysiauGCDOCRIPDDIX3488-26-57 17:50:0083[facility] PlarjvxZENERBNLDMPT0664-48-93 17:50:0023[facility] FecnordBNPGIZOEBUIN7507-46-84 17:50:000.88[facility] ZWJFYDKQKYDZ7900-36-82 17:50:37781Cguehovk LujdciqCHMMETXVCSKL9121-42-64 17:50:004.0[facility] LcwvvpkFYZAQNQKYBPZ1693-48-34 17:50:93630Mtx[facility]uv[facility] QZFPTBVVBHKN6720-92-29 17:50:0025[facility] DzrxzlaFMYFUXQRWIAV9995-42-54 17:50:00 8.5[facility] WhqnxmpZTNCOJTVMXEI3350-46-02 17:50:0066[facility] HermannHEMATOLOGY 2019-01-04 17:50:000.2[facility] SvlopyjCTHDPTPDEX5598-00-67 17:50:003.0[facility] ZgihkksLDILWFUIUT4494-20-93 17:50:001.0[facility] YplyfyuCRKFFWULJD1309-46-66 17:50:001.0[facility] BsrpijfHGYBLQLPIK9375-69-42 17:50:000.0[facility] LFPNZTTRVD0523-20-91 17:50:009[facility] FiqwcrsWACXEPIJID5496-57-35 17:50:00 Normal (01/04/19 12:50 PM)[facility] OmfyvsuUPKSFKNKIM9481-90-51 17:50:001+ *ABN*(01/04/19 12:50 PM)[facility] FhihiplKZGTSDUYSZ4696-01-84 06:25:000.1[facility] NyxjvmoVFYYMUNPPM6701-66-78 06:25:000.7[facility] UagavveARYCXQTSCR2375-38-07 06:25:000.2[facility] HermannPARATHYROID BDQMYNN0732-82-25 06:25:001.08[facility] HermannPARATHYROID EFAPLZU8135-03-49 06:25:001.04[facility] HermannHEMATOLOGY 2018-12-31 07:09:003.0[facility] HermannCHEM SMNVP1465-05-04 09:20:002.1[facility] HermannCHEM FRYUT6461-18-69 09:20:002.7[facility] LrgkyaoJPOLFQMOUC9131-75-15 09:20:36497Giqaweeo SeesmtyNOEZNZBNVQ4110-09-95 09:20:000.1[facility] PARATHYROID ERPUOBG8386-22-13 09:20:001.08[facility] HermannPARATHYROID PROFILE 2018-12-30 09:20:001.10[facility] HermannCARDIAC THIYIQP5046-66-33 05:04:000.09 [facility] HermannCHEM OWZMO7164-69-98 05:04:002.0[facility] HermannCHEM PANEL 2018-12-29 05:04:002.4[facility] BodnvzlRNWQNCTJWN1252-04-61 05:04:00Normal (12/29/18 12:04 AM)[facility] CmnpqcpKDYDZPTMLI3562-57-73 05:04:00 Test Item Value Reference Range Interpretation Comments INR (test code = INR) 1.02 1 0.85-1.17 [facility] RcuvumvKSMTSRPMMB1932-13-50 05:04:00 Test Item Value Reference Range Interpretation Comments PT (test code = PT) 13.2 s 12.0-14.7 [facility] MflvmdrUELXDYCJIY7382-19-53 05:04:00 Test Item Value Reference Range Interpretation Comments PTT (test code = PTT) 31.0 s 22.9-35.8 [facility] SgkanabMJJFBYUXMJ9715-87-13 05:04:93264Fwrcubsu HermannPARATHYROID KMJVJRN0785-80-72 05:04:001.10[facility] HermannPARATHYROID ZYBEATW7080-91-74 05:04:001.11[facility] HermannCARDIAC CDODMUH6262-82-90 07:31:000.11[facility] HermannCHEM DQVBI9927-53-82 07:31:004.7[facility] HermannCHEM WYYVF3076-37-47 07:31:002.8[facility] HermannCHEM WVYJD8588-18-83 07:31:0036[facility] HermannCHEM RVKLT1869-36-67 07:31:0018[facility] HermannCHEM IUZUY6144-41-86 07:31:0073 [facility]annCHEM BZVML5374-14-37 07:31:000.7[facility] HermannCHEM PANEL 2018-12-28 07:31:000.2[facility] HermannCHEM KVCUS4760-92-15 07:31:000.5[facility] HermannCHEM EPOCS9434-25-71 07:31:001.9[facility] HermannCHEM MIMTK3595-80-80 07:31:00 Test Item Value Reference Range Interpretation Comments A/G Ratio (test code = A/G Ratio) 1.5 1 0.7-1.6 [facility] VdkrxhzMHDMNVHZTI3252-53-53 07:31:001.0[facility] HermannHEMATOLOGY 2018-12-28 07:31:00 Test Item Value Reference Range Interpretation Comments INR (test code = INR) 1.13 1 0.85-1.17 [facility] PigdomsYXXEFNFUBJ6106-79-20 07:31:00 Test Item Value Reference Range Interpretation Comments PT (test code = PT) 14.3 s 12.0-14.7 [facility] KskrqakHNEUJAEFZV5119-78-33 07:31:00 Test Item Value Reference Range Interpretation Comments PTT (test code = PTT) 35.5 s 22.9-35.8 [facility] HermannSPECIAL UPTCXWBXN9143-38-02 07:31:0011.1[facility]annURINE AND TDXIG2076-32-87 11:12:00Negative (12/27/18 6:12 AM)[facility] HermannCARDIAC UZSOUFN3424-85-78 05:26:000.06[facility] HermannCHEM ZDNVV4840-47-06 05:26:004.7 [facility] HermannCHEM MGKNI5305-91-09 05:26:003.5[facility] HermannCHEM PANEL 2018-12-27 05:26:0030[facility] HermannCHEM FYQJJ5100-38-78 05:26:0011[facility] HermannCHEM LPNPN8387-44-27 05:26:0055[facility] HermannCHEM XRLIS7990-91-17 05:26:000.5[facility] HermannCHEM XFKCF0386-02-03 05:26:000.1[facility] HermannCHEM UJXCG4593-52-66 05:26:000.4[facility] HermannCHEM ZXDMM5963-91-93 05:26:001.2 [facility] HermannCHEM ILTRC5326-41-34 05:26:00 Test Item Value Reference Range Interpretation Comments A/G Ratio (test code = A/G Ratio) 2.9 1 0.7-1.6 [facility] JfpaifkKJVUAZYFJI1925-10-18 05:26:00 Test Item Value Reference Range Interpretation Comments PT (test code = PT) 15.8 s 12.0-14.7 [facility]EauvmwxLUNCQBIYCP7405-93-69 05:26:00 Test Item Value Reference Range Interpretation Comments INR (test code = INR) 1.29 1 0.85-1.17 [facility] CenterUeocsrtHJGVSTXKMK3503-59-45 05:26:00 Test Item Value Reference Range Interpretation Comments PTT (test code = PTT) 37.6 s 22.9-35.8 [facility] CenterJrinrjcSFXZCVXFLS0630-07-88 05:26:81777Nnfmzevz HermannCHEM PANEL 2018-12-26 05:48:005.1[facility] HermannCHEM LVYVE8208-50-97 05:48:003.1[facility] HermannCHEM BNYIB0775-26-92 05:48:002.0[facility] HermannCHEM OXOZX1932-22-40 05:48:00 Test Item Value Reference Range Interpretation Comments A/G Ratio (test code = A/G Ratio) 1.6 1 0.7-1.6 [facility] HermannCHEM JTFRK3083-17-69 05:48:0051[facility] HermannCHEM PANEL 2018-12-26 05:48:0016[facility] HermannCHEM PKYWJ8869-28-09 05:48:0088[facility] HermannCHEM WMXUT4597-49-29 05:48:000.4[facility] HermannCHEM JBPTB0521-91-76 05:48:000.2[facility] HermannCHEM CDBFF1483-48-67 05:48:000.2[facility]annURINE AND WCMAK3639-60-76 19:16:00Light Yellow *NA*(12/25/18 2:16 PM)[facility] URINE AND LQBSN7791-59-51 19:16:00Slight *ABN*(12/25/18 2:16 PM)[facility] URINE AND BICKA5653-85-20 19:16:00 Test Item Value Reference Range Interpretation Comments UA Spec Grav (test code = UA Spec 1.013 1 Grav) [facility]annUR[facility] AND QEDAG8539-01-39 19:16:00 Test Item Value Reference Range Interpretation Comments UA pH (test code = UA pH) 5.0 1 5.0-8.0 [facility] AND QMVSE5671-43-54 19:16:00Negative *NA*(12/25/18 2:16 PM) [facility] JIBID5944-35-66 19:16:00Negative (12/25/18 2:16 PM) [facility] AFBML5184-54-25 19:16:00<1.0[facility]UR[facility] AND OTDAF6033-80-40 19:16:00Negative (12/25/18 2:16 PM)[facility] AND DRMFX4137-00-28 19:16:00Negative (12/25/18 2:16 PM)[facility]UR[facility] AND OXYXC7247-46-03 19:16:004[facility]annUR[facility] AND UIPRK1975-15-27 19:16:001 [facility] HermannCHEM AEUYL3543-05-41 08:58:001.8[facility] HermannHEMATOLOGY 2018-12-25 08:58:00 Test Item Value Reference Range Interpretation Comments Thrombin Time (test code = Thrombin 17.7 s 15.0-21.2 Time) [facility] WwiphgfHTBSHOGOQO3269-66-91 08:58:002.84[facility] HermannBACTERIAL - PRVQTAHY4442-45-35 05:22:00Negative (12/25/18 12:22 AM)[facility] HermannCHEM PANEL 2018-12-25 05:22:002.3[facility] HermannDRUG LONUHF3238-31-44 05:22:00Negative *NA*(12/25/18 12:22 AM)[facility] HermannDRUG JIHIMQ4793-41-74 05:22:00Negative *NA*(12/25/18 12:22 AM)[facility] HermannDRUG OVBMCB7620-68-46 05:22:00Positive *ABN*(12/25/18 12:22 AM)[facility] HermannDRUG OZUHAR9419-72-83 05:22:00Negative *NA*(12/25/18 12:22 AM)[facility] HermannDRUG BCOTXD3291-06-02 05:22:00Negative *NA*(12/25/18 12:22 AM)[facility] HermannDRUG UPMHSB9765-08-60 05:22:00Positive *ABN*(12/25/18 12:22 AM)[facility] HermannDRUG LJPDZD4046-21-03 05:22:00Negative *NA*(12/25/18 12:22 AM)[facility] HermannDRUG PPPXSW5411-33-66 05:22:00See Note (12/25/18 12:22 AM)[facility] XuvqjioYSEANWVDQE3132-08-61 05:22:00Negative 7(12/25/18 12:22 AM)[facility] DkjnsehYDUWXJRNVD4414-27-68 05:22:00 Test Item Value Reference Range Interpretation Comments Pat Od Value (test code = Pat Od 0.215 1 Value) [facility] YrakninUMPRRFWVOA1958-36-53 05:22:00 Test Item Value Reference Range Interpretation Comments Pos CO Value (test code = Pos CO 0.400 1 Value) [facility]annUR[facility] AND QHOHM1127-85-73 05:22:00Amber *ABN*(12/25/18 12:22 AM) [facility]UR[facility] AND RWELX2747-57-91 05:22:00Slight *ABN*(12/25/18 12:22 AM) [facility] AND MKJGY5053-77-07 05:22:00 Test Item Value Reference Range Interpretation Comments UA Spec Grav (test code = UA Spec 1.029 1 Grav) [facility]UR[facility] AND KWWZU4596-44-10 05:22:00 Test Item Value Reference Range Interpretation Comments UA pH (test code = UA pH) 5.0 1 5.0-8.0 [facility]annUR[facility] AND MQBME7791-22-67 05:22:00Negative *NA*(12/25/18 12:22 AM)[facility]annUR[facility] AND YPMVG4767-63-23 05:22:00Moderate *ABN*(12/25/18 12:22 AM)[facility]annUR[facility] AND WCWIK7819-62-07 05:22:004.0[facility] URINE AND CXYKX0518-08-57 05:22:00Negative (12/25/18 12:22 AM)[facility] URINE AND IHPAR1040-10-79 05:22:00Negative (12/25/18 12:22 AM)[facility] URINE AND CGPZF7961-68-62 05:22:003[facility]annURINE AND FKOJR6534-16-06 05:22:0037[facility]annURINE AND KJQDV4207-82-49 05:22:0023[facility] URINE AND OYBRJ5531-52-78 05:22:001[facility] VANCOMYCIN:SUSC:PT:ISOLATE:ORDQN:CUK9458-35-60 05:22:00Staphylococcus aureus [facility] [id number] 23:54:00Negative 5(12/24/18 6:54 PM) [facility]ARD[facility] [id number] 23:54:0062[facility]annCHEM PANEL 2018-12-24 23:54:0027.0[facility]annCHEM [id number] 23:54:005.0[facility]annCHEM ORLAM4768-31-43 23:54:0011.80[facility]annCHEM [id number] 16:13:0076[facility]annCHEM MWBNV1287-66-81 16:13:000.79[facility]annCHEM GJAJS1496-42-57 16:13:93446Knbecchq HermannCHEM ZQFYO6838-95-25 16:13:004.2 [facility]annCHE[facility] FVXJF2403-74-48 16:13:0019[facility]annCHEM PANEL 2018-11-29 16:13:009.3[facility]annCHEM VGYHW9115-70-78 16:13:17068Cwoniofp HermannCHEM QSYTZ2822-79-77 16:13:0030[facility]annCHEM NDJKM4743-47-80 16:13:78846Zbjmzflt HermannCHEM JOAZK7898-79-19 16:13:0010.2[facility] URINE AND [id number] 15:09:00None Seen (11/29/18 10:09 AM)[facility]INE AND [id number] 15:09:000.2[facility] KRJUM9613-54-15 15:09:00Negative (11/29/18 10:09 AM)[facility] [id number] 15:09:00Negative (11/29/18 10:09 AM)[facility] [id number] 15:09:00Small *ABN*(11/29/18 10:09 AM)[facility] [id number] 15:09:00Negative (11/29/18 10:09 AM)[facility] [id number] 15:09:00 Test Item Value Reference Range Interpretation Comments UA pH (test code = UA pH) 5.5 1 5.0-8.0 [facility] [id number] 15:09:00Negative *NA*(11/29/18 10:09 AM) [facility] [id number] 15:09:00Negative (11/29/18 10:09 AM) [facility] [id number] 15:09:00Yellow *NA*(11/29/18 10:09 AM) [facility] [id number] 15:09:00Slight Cloudy (11/29/18 10:09 AM)[facility] [id number] 15:09:00>=1.030 *ABN*(11/29/18 10:09 AM)[facility]] CMP [id number] 12:32:00 Test Item Value Reference Range Interpretation [...] 74 {ML/MIN/1.7} > OR = 60 [address] [place] (test code = eGFR NON-) eGFR 86 {ML/MIN/1.7} > OR = 60 [address] [place] (test code = eGFR ) BUN/CREATININE NOT [...] mg/dl 0.2-1.2 N Normal (test code = 97545-7) ALKALINE 156 u/l 33-130 PHSPHATASE (test code = ALKALINE PHSPHATASE) AST; Normal (test 34 u/l 10-35 N code = 1916-6) ALT; Above High 71 u/l 6-29 SPECIMEN REC EIVED DATE Threshold (test AND TIME: [id number] code = 1742-6) [facility]] CBC (INCLUDES DIFF/PLT)2018-11-18 12:32:00 Test Item Value Reference Range Interpretation Comments WHITE BLOOD CELL 12.2 3.8-10.8 COUNT (test code = {Thousand/u} WHITE BLOOD CELL COUNT) RED BLOOD CELL 4.89 3.80-5.10 N COUNT (test code = {Million/uL} RED BLOOD CELL COUNT) HEMAGLOBIN; Normal 15.4 g/dl 11.7-15.5 N (test code = 23476-2) HEMATOCRIT; Above 45.8 % 35.0-45.0 High Threshold (test code = 4544-3) MCV; Normal (test 93.7 fL 80.0-100.0 N code = 787-2) MCHC; Normal (test 33.6 g/dl 32.0-36.0 N code = 30419-0) RDW; Normal (test 14.4 % 11.0-15.0 N code = 788-0) PLATELET COUNT; 177 140-400 N Normal (test code {Thousand/u} = 777-3) MPV; Normal (test 11.0 fL 7.5-12.5 N code = 73198-4) ABSOLUTE 97290 7984-9675 NEUTROPHILS (test {cells/uL} code = ABSOLUTE NEUTROPHILS) ABSOLUTE 5426 566-4997 N LYMPHOCYTES (test {cells/uL} code = ABSOLUTE [...] Normal 1.7 % N (test code = 53305-2) EOSINOPHILS; 0.1 % N Normal (test code = 99105-6) BASOPHILS; Normal 0.2 % N (test code = 42320-7) COMMENT(S) (test See Comment Review of p eripheral code = COMMENT(S)) smear con firmsautomated results.SPECIME N RECEIVED DATE A ND TIME: [facility] 2 views [id number] 10:03:00 PROCEDURE: Chest Radiograph.Clinical Indication: Pneumonia.Comparison: Chest radiograph 09/17/2018.FINDINGS:The chest shows minimal subsegmental atelectasis at the left lung base. Nofocal consolidationis identified. There is left-sided [employer] shunt tubing. Thereare calcified granulomata in the upper lobes.The cardiac silhouette is upper limits of normal in size. Degenerative changeinvolves the thoracic spine and shoulders. An old distal right claviclefracture is suspected.IMPRESSION:1. Minimal left lower lobe subsegmental atelectasis.SL:[id number]--Xdcb by: Eleazar Hamilton MDDictated Date/time: 11/18/18 10:49Electronically Signed by: Eleazar Hamilton MD 11/18/1909:52FINAL REPORTUnSalt [facility] Bone Density [employer] [id number] 10:53:00BONE DENSITY ASSESSMENT: 10/21/2018CLINICAL DATA: Post menopausal [...] was performed 10/21/2018 on the AP L2- C8aoekby of spine using a Hologic unit. The [...] careprovider is recommended.This exam was interpreted at [id number] for CRISPIN Riojas 15. Betzy Caba M.D. ms/penrad:10/21/2018 12:45:40 [employer] Captain(s): [facility] Cornejo [facility] [place]--Read by: Betzy Caba MDDictated Date/time: 10/21/18 12:45Electronically Signed by: Betzy Caba MD 10/22/1911:45FINAL REPORTUnL[facility] Hospital UydibgylbzRVIAOZUTLO8816-58-62 15:20:0010.6[facility] GtqbcwvRAIHPRHQLJ4476-43-04 15:20:0091.5[facility] TcgiloyTRRAQWYGYD9498-01-03 15:20:0042.9[facility] [id number] 15:20:00 Test Item Value Reference Range Interpretation Comments MCH (test code = MCH) 31.0 pg 27.0-31.0 [facility] CenterOpaaixbNLMGJVJYIB9271-18-40 15:20:0014.1[facility]MAT[facility]Y 2018-[facility]-23 15:20:0033.8[facility] NmgskxjDHBZIEIZVZ7445-43-54 15:20:69824Wlwvuhlx BwawdeoFDIGNDXMYS1539-81-52 15:20:0014.5[facility] WzeccnbRQTQWIQDFA6046-15-28 15:20:0010.8[facility] CexrmcfJUVNICDDFR5292-90-38 15:20:004.69[facility] XCHHGRSYAC1895-52-99 15:20:000.1[facility] YxmpuvoUQXYVITTGJ4016-35-15 15:20:00 70.7[facility] SouooprDUUHDCTCCK3126-45-64 15:20:0021.8[facility]annHEMATOLOGY 2018-09-23 15:20:002.4[facility] YdfctcnVKGHBUREWK9503-53-92 15:20:007.6[facility] GqugawfEDOOVFAPVZ8779-27-43 15:20:000.7[facility] LarapqvSNGSQMYABE1668-98-42 15:20:006.7[facility] RlrjwslYFQOXYCVCK0574-74-07 15:20:000.3[facility] GDDXLWVFYK6410-63-22 15:20:000.5[facility]annCHEM PHYXK1468-55-47 10:38:002.2 [facility]annCHEM YLMKU9130-71-05 10:38:003.0[facility]annCHEM PANEL 2018-09-23 10:38:0069[facility]annCHEM AAENC1404-12-40 10:38:0028[facility]annCHEM ZBNJQ5217-19-65 10:38:05435Xopqygvn HermannCHEM GIYFD5604-85-51 10:38:003.8[facility]annCHEM INLGR3470-83-57 10:38:05652Ishavbxc HermannCHEM NOLVF9836-05-52 10:38:009.8[facility]annCHEM ZXHIO6220-45-02 10:38:008.1 [facility]annCHE[facility] CQSTW7795-25-19 10:38:0023[facility]annCHEM PANEL 2018-09-23 10:38:000.86[facility]annCHEM KPGHW9772-39-97 10:38:0043[facility] EehelheIQTXSHRXYZ9512-89-25 10:38:0014.6[facility] KmxpcjnUVTEZCMZNW4512-79-78 10:38:0044.7[facility] SemqpzuYUOMITAKRP1697-84-63 10:38:004.85[facility] HBNMLNXZJB4472-04-75 10:38:0014.1[facility] KakxkuuVNFPYNNUPE5766-30-29 10:38:00 10.9[facility] VnhhoxbOBSMTKPENG1123-42-51 10:38:0014.2[facility]annHEMATOLOGY 2018-09-23 10:38:94178Ytsfcnya XtcbhcuNSOTYCZODR9501-01-12 10:38:0092.2[facility] FxagpqsKXPXJARZBT3343-24-06 10:38:00 Test Item Value Reference Range Interpretation Comments MCH (test code = MCH) 30.1 pg 27.0-31.0 [facility] LydoxndRARYWDXWII4646-52-48 10:38:0032.6[facility] HermannPARATHYROID JGFIZQC2656-89-09 10:38:001.05[facility]annPARATHYROID CCLGZOW8569-37-39 10:38:001.00[facility]annCHEM JLFBL3408-06-15 06:22:000.6[facility]annCHEM DTHSX9752-40-91 06:22:0035[facility]annCHEM NXNKP5415-44-56 06:22:0095 [facility]annCHE[facility] PPGXX5845-58-02 06:22:0047[facility]annCHEM PANEL 2018-09-22 06:22:0052[facility]annCHEM ZLEYR6501-33-29 06:22:002.3[facility]annCHEM NGZRI9485-09-65 06:22:007.1[facility]annCHEM WFZMZ3948-19-32 06:22:0026[facility]annCHE[facility] IKCSV0421-75-11 06:22:008.1[facility]annCHEM DBZYC8417-37-55 06:22:78929Mtkpzkii HermannCHEM XQXLS2936-49-75 06:22:004.3 [facility]annCHE[facility] JQUEI9889-81-28 06:22:17525Csymglvg HermannCHEM PANEL 2018-09-22 06:22:001.07[facility]annCHEM IZTIE5519-71-30 06:22:49623Wnkiofob HermannCHEM SXPDV8989-48-70 06:22:0029[facility]annCHEM WGFXT1388-58-86 06:22:004.8[facility]annCHEM FMCGO8536-92-69 06:22:00 Test Item Value Reference Range Interpretation Comments A/G Ratio (test code = A/G Ratio) 0.5 1 0.7-1.6 [facility]CHE[facility] XGYFM2918-58-64 06:22:00 Test Item Value Reference Range Interpretation Comments B/C Ratio (test code = B/C Ratio) 27 1 6-25 [facility]annCHE[facility] OGXDL4421-82-64 06:22:0011.3[facility]annHEMATOLOGY 2018-09-22 06:22:006.5[facility] YaigqxeKSAEXWKEFG2307-18-15 06:22:000.1[facility] SkvzoagNDTBYYURCK7255-21-78 06:22:000.2[facility] YiunthrOXENHDTGFV6731-67-05 06:22:0073.8[facility] SpgcmqgOITYNRKBWZ7933-03-59 06:22:0019.4[facility] IOEIYWPAFF4034-73-84 06:22:006.0[facility] FqfxmroAEPBOQNYGN1700-52-88 06:22:001.6 [facility] OflghzhOQRRPADKCP3483-53-94 06:22:000.5[facility]annHEMATOLOGY 2018-09-22 06:22:0011.3[facility] ZvfsiexAHTDUYJIHA7852-26-09 06:22:0033.1[facility] ItinpjtTDJFIYIXQE5062-68-14 06:22:0014.0[facility] SzzfhiwWQLMNHLDWF1381-33-33 06:22:23948Wnnzfxsj CickxghMGHBDXAWMH2660-39-08 06:22:0093.1[facility] PGSTJVEQXF6286-84-38 06:22:0044.2[facility] BdkpiaxBQISIZCSUV1008-38-27 06:22:00 Test Item Value Reference Range Interpretation Comments MCH (test code = MCH) 30.8 pg 27.0-31.0 [facility] RwkvlpvYTFBMCZKRM8664-45-38 06:22:004.74[facility]annHEMATOLOGY 2018-09-22 06:22:008.1[facility] OfsbvfjXHRZSMTBMG2730-19-20 06:22:0014.6[facility]annCHEM BFGDT4275-16-24 07:00:003.3[facility]annCHEM LYNCD5060-15-37 07:00:002.0[facility]annCHEM JVUZU7408-03-39 07:00:0070[facility]annCHEM ILOYW2496-17-48 07:00:008.7[facility]annCHEM QWVNZ6801-22-88 07:00:000.84 [facility]annCHEM ALRBU6918-07-34 07:00:71177Vwfqalru HermannCHEM PANEL 2018-09-18 07:00:0032[facility]annCHEM UKNHE6753-61-16 07:00:53336Hcowbijf HermannCHEM DGYEN3485-88-03 07:00:0032[facility]annCHEM TWEWT0368-88-93 07:00:003.9[facility]annCHEM GRVRU3880-96-43 07:00:62049Zwqmaqjv HermannCHEM FBXFS6633-21-65 07:00:007.9[facility] AyyesaeNHHVJLGANJ4490-97-91 07:00:000.7 [facility] AtgoguvFKSFCIVRAT8372-18-00 07:00:001.7[facility]annHEMATOLOGY 2018-09-18 07:00:006.0[facility] QdblbddRDIVSOBAUB4352-46-50 07:00:000.1[facility] XgrkgvtUCTFGHKYCM1034-35-88 07:00:008.5[facility] ZxsjrmmKYBMJIWDGD1605-87-45 07:00:0020.3[facility] XewicijPNXVPUBVJC6986-91-69 07:00:0071.1[facility] HGEBCSLJJM1050-32-44 07:00:0033.8[facility] HuhdciuJBDCVTNYWM1777-92-17 07:00:00 14.1[facility] XutsdqtEWMYGUXTCI0788-00-72 07:00:00 Test Item Value Reference Range Interpretation Comments MCH (test code = MCH) 31.2 pg 27.0-31.0 [facility] FnbrpbcDERCDCQATU4356-71-26 07:00:0092.2[facility]annHEMATOLOGY 2018-09-18 07:00:0044.7[facility] QeqikjuACOMLEMYAO5141-99-53 07:00:004.85[facility] WlthzlhZSJZMDRUUO0917-70-94 07:00:008.5[facility] BqdnspkEACALEOMUW4033-40-79 07:00:0015.1[facility] QurzqbtYVXMUJSNNX7285-07-75 07:00:0011.8[facility] AXUOLWLISS9634-59-94 07:00:0081[facility] HermannPARATHYROID FHEWWRI6940-08-78 07:00:001.09[facility] HermannPARATHYROID CDHVHYP4134-97-27 07:00:001.09[facility]annCHEM ICMYV3090-33-47 06:12:002.0[facility]annCHEM KUBKY2340-43-54 06:12:008.6[facility]annCHEM SCVRX2641-58-11 06:12:006.4[facility]annCHEM JFMBH7278-13-58 06:12:0070[facility]annCHEM KFKSC6983-04-27 06:12:003.4 [facility]annCHEM QNYJN8858-79-40 06:12:56326Hhizorbe HermannCHEM PANEL 2018-09-17 06:12:21681Ozofkkig HermannCHEM BEJSZ3402-84-02 06:12:000.84[facility]annCHEM BQFZN9072-00-04 06:12:0035[facility]annCHEM OKYYL3349-31-37 06:12:49773Ythcbdje HermannCHEM YZLFQ6827-56-89 06:12:0037[facility]annCHEM YGKTM6592-49-16 06:12:002.6[facility] GjbassmGYSHATWKLZ9206-98-15 06:12:0071 [facility] IzwqinrEXQVELQXQI9813-26-98 06:12:0033.1[facility]annHEMATOLOGY 2018-09-17 06:12:0010.7[facility] VgqaftbZIFWURTVFX9832-13-27 06:12:0014.1[facility] MyubyrcAOHSGTKEGQ2199-79-30 06:12:00 Test Item Value Reference Range Interpretation Comments MCH (test code = MCH) 30.4 pg 27.0-31.0 [facility] KcefnizVMJCYDKLEC4618-14-67 06:12:009.7[facility]annHEMATOLOGY 2018-09-17 06:12:0092.0[facility] BftpzjsZTJKXQREJH7218-94-56 06:12:0044.7[facility] BpyvizcTTDEMDLJKQ3217-67-42 06:12:004.86[facility] ZdrhmmoMPFPALVNJL6412-91-44 06:12:0014.8[facility] BxhhcvrTLJXMRCNWE3026-86-58 06:12:001.4[facility] ISVGLPQQMO1507-05-09 06:12:007.6[facility] MfbfyomWBHVLGZAEJ4972-23-72 06:12:007.0 [facility] ChyohcwSPWLVTTNQT9101-29-19 06:12:000.5[facility]annHEMATOLOGY 2018-09-17 06:12:0014.4[facility] BdmupsrSZCQCMYBCH7653-43-61 06:12:000.7[facility] IqxzovaWLBFOKJGOM5428-10-50 06:12:0078.1[facility]annPARATHYROID PROFILE 2018-09-17 06:12:001.11[facility] HermannPARATHYROID RYMOHJD1728-43-64 06:12:00 1.14[facility]annCHEM LSLXO9776-82-03 05:36:002.1[facility]annCHEM PANEL 2018-09-16 05:36:002.0[facility] HtnpdfvEQWQMAHDFIVC2946-49-93 05:36:008.1[facility] ItwivduKWXMYTDCMEAX7854-48-27 05:36:0047[facility] VbhmexpQGTTVBEATEFZ4056-85-51 05:36:0033[facility] PxnjnkfMFWKDBKVSMHM5253-47-09 05:36:008.4[facility] MRNFEFFKYAHI7359-47-73 05:36:004.1[facility] UklmdjeOEVZNBBZHAJO5281-46-49 05:36:73113Pjmvwyob LybmdqeXIUFOQWLDZDK1037-77-65 05:36:08196Ayrdufwv [facility] PCJQGBDYJAWQ2400-88-51 05:36:0037[facility] TozwzpcZVMXCZLYAECS1038-18-84 05:36:00 1.17[facility] FmxsazwYTBESHGYUUXC5944-93-41 05:36:53532Rbpjbqqt HermannHEMATOLOGY 2018-09-16 05:36:0077[facility] RzlwqevAXCKIEZVIJ1354-23-87 05:36:0033.5[facility] XzzlpqkQYJWXPTWQY4492-68-76 05:36:0014.2[facility] TlqkafjIBCQQYIDLG0698-79-71 05:36:0011.1[facility] AjdrijpIUAIYLAYNH6557-94-80 05:36:0092.4[facility] AOPWJZIRTC2895-66-20 05:36:00 Test Item Value Reference Range Interpretation Comments MCH (test code = MCH) 31.0 pg 27.0-31.0 [facility] RbjuxsgRXOZKSHZPD3170-37-96 05:36:0041.6[facility]annHEMATOLOGY 2018-09-16 05:36:004.50[facility] EqovgpjIGJBHSBQCW3445-68-27 05:36:0014.0[facility] DtwzxsgYPLZFCIJEI2357-97-70 05:36:0010.6[facility] DwlhwxiGEREKYUYEC3496-14-18 05:36:008.8[facility] BtzmeeuQVRNVDNJNA5833-82-85 05:36:000.7[facility] AXJIWQNCDI9552-04-37 05:36:000.3[facility] AnjfzjgQTLJJOTEFV7639-50-91 05:36:001.0 [facility] GzojnynRAUVFGFOFL3188-49-28 05:36:0083.3[facility]annHEMATOLOGY 2018-09-16 05:36:009.9[facility] EyskdzxJMHEVZRDKU2696-66-75 05:36:006.5[facility] HermannPARATHYROID OXTEHWO2880-38-86 05:36:001.13[facility] HermannPARATHYROID BZTFKOE6711-58-80 05:36:001.13[facility]UR[facility] AWRVG3565-30-50 22:04:00 3[facility] OOMBE1891-86-73 22:04:001[facility] PRIRX2944-94-43 22:04:00 Test Item Value Reference Range Interpretation Comments UA pH (test code = UA pH) 5.5 1 5.0-8.0 [facility] PPTGO9179-72-22 22:04:30078 *ABN*(09/15/18 5:04 PM) [facility] EIXHV4859-06-79 22:04:00Negative *NA*(09/15/18 5:04 PM) [facility] RHPEE8782-85-68 22:04:005[facility] RAHDN3377-04-27 22:04:004[facility] GTOMX1483-47-34 22:04:00 Negative (09/15/18 5:04 PM)[facility] FVGTL2393-04-03 22:04:00 Negative (09/15/18 5:04 PM)[facility] XMKVS1112-20-71 22:04:000.2 [facility] PWJEW8236-19-33 22:04:00Negative (09/15/18 5:04 PM) [facility] BWGKV3857-59-73 22:04:00Negative *NA*(09/15/18 5:04 PM) [facility] UTPIS7850-91-17 22:04:00 Test Item Value Reference Range Interpretation Comments UA Spec Grav (test code = UA Spec 1.025 1 Grav) [facility] QJHZF1582-05-22 22:04:00Clear (09/15/18 5:04 PM) [facility] UYXSF9808-71-99 22:04:00Yellow *NA*(09/15/18 5:04 PM) [facility] KzvaiwqJOKVJNNWKM6156-08-61 17:20:00<1.0[facility] HermannBACTERIAL - ZJEQPYCI6185-83-31 16:23:00Negative (09/14/18 11:23 AM)[facility]annIMMUNOLOGY 2018-09-14 14:09:001.25[facility] XnrvgfgKIGOJAUZKU9592-14-59 14:09:0042[facility] IhnsbstUHZCNIHWNN1537-60-97 08:47:000.1[facility] LqxvalbKHIOARQNXM5132-13-68 08:47:000.1[facility] QmxrvgtXDQBHDBJGZ0751-13-76 08:47:001.1[facility] GGTMBLYGTQ4614-21-81 05:36:000.1[facility] EcneltfQPAOIYZWZV0469-98-90 05:36:000.1 [facility] IuynaxmCKCLDNZDYL4334-17-21 05:36:000.9[facility] STOOL 2018-09-12 16:27:00<1.0[facility] CXVOR7603-83-60 16:27:00 Trace *ABN*(09/12/18 11:27 AM)[facility] PICEF5986-64-00 16:27:00 Small *ABN*(09/12/18 11:27 AM)[facility] ZDLAB1992-94-99 16:27:00 Negative *NA*(09/12/18 11:27 AM)[facility] HBVSA3900-99-63 16:27:00Slight *ABN*(09/12/18 11:27 AM)[facility] LKOCU9727-20-17 16:27:00 Test Item Value Reference Range Interpretation Comments UA pH (test code = UA pH) 5.0 1 5.0-8.0 [facility] HJPKD2482-28-65 16:27:00 Test Item Value Reference Range Interpretation Comments UA Spec Grav (test code = UA Spec 1.018 1 Grav) [facility] SJVJP0240-80-99 16:27:00Yellow *NA*(09/12/18 11:27 AM) [facility] CAEUR9687-53-06 16:27:004[facility] JJSCG7737-90-47 16:27:004[facility] KDBYC8204-03-22 16:27:00 Negative (09/12/18 11:27 AM)[facility] TBULF6307-81-75 16:27:001 [facility] JYZDF5024-12-24 16:27:00Negative (09/12/18 11:27 AM) [facility]annCHEM PCGXJ4778-37-05 09:34:000.7[facility]annCHEM PANEL 2018-09-12 09:34:65140Adawdzio HermannCHEM RAQZD2325-32-50 09:34:008.3[facility]annCHEM JPHUZ0971-25-20 09:34:0025[facility]annCHEM IOHDW5797-78-60 09:34:0034[facility]annCHEM BTIIA0354-05-62 09:34:002.7[facility]annCHEM RIFAD4126-01-63 09:34:005.6[facility]annCHEM SPHAQ6673-21-84 09:34:00 Test Item Value Reference Range Interpretation Comments B/C Ratio (test code = B/C Ratio) 9 1 6-25 [facility] CEJEQ7260[facility]33-46 09:34:00 Test Item Value Reference Range Interpretation Comments A/G Ratio (test code = A/G Ratio) 0.5 1 0.7-1.6 [facility]UttbzxiOCBLDNJONN8438-19-17 09:34:00 Test Item Value Reference Range Interpretation Comments PTT (test code = PTT) 31.6 s 22.9-35.8 [facility] CenterFuwiafzOYYYNGZMWK9248-69-89 09:34:00 Test Item Value Reference Range Interpretation Comments PT (test code = PT) 14.2 s 12.0-14.7 [facility] CenterVwokumnDVTVUFGHNH0417-94-22 09:34:00 Test Item Value Reference Range Interpretation Comments INR (test code = INR) 1.12 1 0.85-1.17 [facility] CenterUaddrepNBLJJILZJW3773-92-27 09:34:002.4[facility] 2018-09-12 09:34:000.2[facility] TxlinrdXOQUGGDUWM0668-79-92 09:34:000.2[facility]annCHEM XSSXN7104-45-35 07:19:00<0.1[facility]annCHEM DFPXP5520-30-83 07:19:00 Test Item Value Reference Range Interpretation Comments A/G Ratio (test code = A/G Ratio) 0.5 1 0.7-1.6 [facility]annCHE[facility] MDPPY8981-28-26 07:19:0040[facility]annCHEM PANEL 2018-09-11 07:19:0031[facility]annCHEM CWOMT0011-42-04 07:19:66761Zicgsswz HermannCHEM RYAGB7654-11-63 07:19:000.8[facility]annCHEM LBVJC5498-82-61 07:19:007.3[facility]annCHEM SURLP0547-40-29 07:19:002.5[facility]annCHEM NKCAL4155-12-24 07:19:004.8[facility]annBLOOD BANK JUUYYZS8740-29-27 22:06:00 Negative (09/10/18 5:06 PM)[facility] SXGVJ2157-91-19 22:06:22794 [facility]CHE[facility] MEDWJ0608-79-55 22:06:000.8[facility]annCHEM PANEL 2018-09-10 22:06:0045[facility]annCHEM ZQGXF4394-67-30 22:06:0035[facility]CHE[facility] LGZPQ1780-65-62 22:06:007.1[facility]CHE[facility] SKGGF3845-16-76 22:06:002.9[facility]annCHEM KBFVS7222-19-74 22:06:00 Test Item Value Reference Range Interpretation Comments B/C Ratio (test code = B/C Ratio) 11 1 6-25 [facility]2019-04-12 22:06:00 Test Item Value Reference Range Interpretation Comments A/G Ratio (test code = A/G Ratio) 0.7 1 0.7-1.6 [facility]2019-04-12 22:06:004.2[facility] 2018-09-10 22:06:00Negative 1(09/10/18 5:06 PM)[facility] 2018-09-10 22:06:00 Test Item Value Reference Range Interpretation Comments Pat Od Value (test code = Pat Od 0.127 1 Value) [facility] HospitalHmdmzcoOSMPNVSNUH9912-15-05 22:06:00 Test Item Value Reference Range Interpretation Comments Pos CO Value (test code = Pos CO 0.400 1 Value) [facility] HospitalSzvzdwfRTDJXGKQOU7110-27-80 22:06:00 Test Item Value Reference Range Interpretation Comments INR (test code = INR) 1.08 1 0.85-1.17 [facility] HospitalZfwycksAFWGLWXPQJ9644-58-27 22:06:00 Test Item Value Reference Range Interpretation Comments Thrombin Time (test code = Thrombin 19.1 s 15.0-21.2 Time) [facility] IaiownrQYSPDNKHSQ2817-71-05 22:06:001.22[facility]annHEMATOLOGY 2018-09-10 22:06:72380Pkhsodpc SadyjlxSCJFAIQJCB2899-77-61 22:06:00 Test Item Value Reference Range Interpretation Comments PTT (test code = PTT) 30.3 s 22.9-35.8 [facility] EzjmqweJDJLCXRIFH3456-25-56 22:06:00 Test Item Value Reference Range Interpretation Comments PT (test code = PT) 13.8 s 12.0-14.7 [facility] DkefrbwGZSGPEKDJV5416-64-62 22:06:81065.0[facility]UR[facility] YEXLL6030-44-35 22:06:00Marked *ABN*(09/10/18 5:06 PM)[facility] FPYKL3520-38-74 22:06:00Yellow *NA*(09/10/18 5:06 PM)[facility] VEQKC5751-72-67 22:06:00 Test Item Value Reference Range Interpretation Comments UA pH (test code = UA pH) 6.0 1 5.0-8.0 [facility] KWJIC8594-35-03 22:06:00Trace *ABN*(09/10/18 5:06 PM) [facility] PHRBE5095-28-17 22:06:00Negative *NA*(09/10/18 5:06 PM) [facility] PAHZH4747-66-14 22:06:00Trace *ABN*(09/10/18 5:06 PM) [facility] QLWWF1329-10-08 22:06:00<1.0[facility] CMUQW3583-09-06 22:06:00Small *ABN*(09/10/18 5:06 PM)[facility] IVDUT0523-45-32 22:06:00Negative (09/10/18 5:06 PM)[facility] JNHEX5104-09-12 22:06:00 Test Item Value Reference Range Interpretation Comments UA Spec Grav (test code = UA Spec 1.012 1 Grav) [facility] VDTWB7891-68-90 22:06:0019[facility]UR[facility] YSEFJ3210-65-37 22:06:001[facility] OknbildNLPAHMXQKX3166-01-60 14:47:000.0 [facility] WbhadvjANZPXLEGSM3700-50-17 14:47:000.0[facility] HermannIMMUNOLOGY 2018-09-10 14:47:56593.0[facility] WeegzssXMJQTCLPKB9869-82-21 16:20:0020[facility] VpjfndeMBQTLCPSND4040-65-75 16:20:005.2[facility] AwkepjyZFSKPFDFPN0757-46-49 16:51:00 Test Item Value Reference Range Interpretation Comments PTT (test code = PTT) 32.0 s 22.9-35.8 [facility] PmdcaeeRGHWDYSPTQ9311-01-17 16:51:00 Test Item Value Reference Range Interpretation Comments PT (test code = PT) 13.5 s 12.0-14.7 [facility] JkwfbdvIOJOFSXSOC0391-48-64 16:51:00 Test Item Value Reference Range Interpretation Comments INR (test code = INR) 1.05 1 0.85-1.17 [facility] CtwhpncKSOYGYZAHSWW5617-77-74 16:46:0015.8[facility] HermannELECTROLYTES 2018-09-08 16:46:00 Test Item Value Reference Range Interpretation Comments B/C Ratio (test code = B/C Ratio) 16 1 6-25 [facility] StvtcjsKHKPRPHHRVLF9761-10-43 16:46:004.2[facility] HermannELECTROLYTES 2018-09-08 16:46:00 Test Item Value Reference Range Interpretation Comments A/G Ratio (test code = A/G Ratio) 0.7 1 0.7-1.6 [facility] BbdmpejAHUPQTFLYCLL5273-92-27 16:46:56511Esqdsvny HermannELECTROLYTES 2018-09-08 16:46:003.8[facility] BeykpdiQLVXIOZMGTKU9756-10-00 16:46:03502Wrnlodke JfmqlyeEIFDOWIZKVLP9337-23-04 16:46:0021[facility] LvnmwjhGMRZZSPZFLUK6536-75-01 16:46:39214Avaxosra PoeuqglGPLHEPOFHCJD4390-54-54 16:46:002.9[facility] DHGDJWTXROTR7721-64-39 16:46:0028[facility] SoghtbbDTVHWHMWKJOF8136-97-85 16:46:00 40[facility] DpbvnopDZSMBHBGHCVC0474-28-60 16:46:86694Nznbtstp HermannELECTROLYTES 2018-09-08 16:46:0067[facility] NgdtedrTOTYKJVYOVYG9942-27-84 16:46:001.33[facility] EtdsmbdLYOGYMFMHAAC4545-81-07 16:46:001.3[facility] TongzcsTXCNBRDYVCXO3362-97-98 16:46:007.1[facility] UoprrraNUTVPAHUXALD9643-39-16 16:46:39275Eaporjjp [facility] LUMFGPZBEFSQ3881-22-38 16:46:009.3[facility] UsfnpvcLHHIGAHCXZ6125-23-31 16:46:00 0.1[facility] YhcsmowOOUCDLIHFR9222-66-51 16:46:002.5[facility]annHEMATOLOGY 2018-09-08 16:46:000.2[facility] ZhcvwchZVSDYPPVUJ1597-12-31 16:46:000.7[facility] HzfoejuOFCTJXQKII5960-24-98 16:46:003.3[facility] IhdnbavTCYTAYCQOF6170-07-33 16:46:009.8[facility] FyadjfwNIUURDZCOM1478-28-01 16:46:002.5[facility] SSMUQUVNOR9089-46-07 16:46:002.0[facility] XgihtveCGICPSQFTQ0020-07-31 16:46:00 48.8[facility] AfurjkeBLYNVCSLXP9530-90-28 16:46:0036.9[facility]annHEMATOLOGY 2018-09-08 16:46:0011.3[facility] QgdoecxPEWXZVCPRY0019-50-55 16:46:00 Test Item Value Reference Range Interpretation Comments MCH (test code = MCH) 30.3 pg 27.0-31.0 [facility] AvmtrefMEJXNYNIIV1195-28-50 16:46:22237Atffxgez HermannHEMATOLOGY 2018-09-08 16:46:0013.9[facility] HsbuzqfYRGJBYTRVH3857-38-93 16:46:0092.9[facility] KwzcmiqEWIDMUKUVI9859-58-49 16:46:0032.6[facility] AlooftcHVDGKIIEEF2535-32-74 16:46:006.8[facility] QhmplprOVPLMEWINE9464-34-17 16:46:005.13[facility] DOMWVQOFFH6841-21-89 16:46:0015.5[facility] MfoljgrSUIIPZLWGG1219-12-92 16:46:00 47.7[facility] UxanidcRGRAUR1092-04-90 16:46:00 Test Item Value Reference Range Interpretation Comments VLDL (test code = VLDL) 24 1 [facility] OxglvuqGZJIXB4640-38-38 16:46:0045[facility] YbayumnJRTCNQ7165-31-37 16:46:00 Test Item Value Reference Range Interpretation Comments CHD Risk (test code = CHD Risk) 2.82 1 3.90-5.80 [facility] MxeyzvgGIWRZQ7471-04-05 16:46:0038[facility] DtjuxttCGUSXO1483-86-08 16:46:26403Nbmouhrn HeeuwqlLNTYQV3652-38-47 16:46:52705Uyzxqxbh HermannSPECIAL HSFEOAKRQ6160-38-55 16:46:0012.2[facility] KvkqitbHTKIAZJYEV5976-25-93 22:52:009.7 [facility] AelrcekZZCJKECASG9387-20-87 22:52:51190Gqawatbx HermannHEMATOLOGY 2018-08-19 22:52:0013.7[facility] LnxbfgjTTBIGYZRYN4627-73-27 22:52:0017.8[facility] OkyzhpsILLWDSNLBK4308-06-14 22:52:0052.9[facility] YsunntqZLNJKGUMEK8570-92-21 22:52:0092.3[facility] VjzttmzPPPKDAUUEQ4935-34-66 22:52:005.73[facility] FSCGBLREDJ8035-67-13 22:52:008.5[facility] ZqyftfgIZJHHPXSGW1340-24-02 22:52:00 33.6[facility] YhfonrwGQXXXMWOLI2693-12-41 22:52:00 Test Item Value Reference Range Interpretation Comments MCH (test code = MCH) 31.0 pg 27.0-31.0 [facility] HermannCARDIAC EOWOJLG6599-09-42 09:40:0098[facility] HermannCHEM PANEL 2018-08-19 09:40:003.4[facility] HermannCHEM TNOWZ2182-60-64 09:40:001.9[facility] HermannCHEM JTKSG9595-83-87 09:40:0062[facility] HermannCHEM ITUGX0102-75-96 09:40:008.8[facility] HermannCHEM RKIKM9140-61-03 09:40:0023[facility] HermannCHEM YROAA6521-57-93 09:40:04505Emjsyskw HermannCHEM LGJVT7520-51-47 09:40:004.6 [facility]annCHEM ZCPSO8996-71-34 09:40:000.94[facility] HermannCHEM PANEL 2018-08-19 09:40:16033Xmjskskw HermannCHEM SZGJW8107-12-51 09:40:0013[facility] HermannCHEM XGFBZ6632-39-79 09:40:87794Hcyfoctb HermannCHEM FGUAH9240-18-86 09:40:0013.6[facility] UnngpthNXBZYQCAOY2540-66-05 09:40:000.2[facility] MITYNMRMEE6221-53-47 09:40:000.1[facility] XyitombJFMPSIZKWO9018-30-07 09:40:00 47.9[facility] VqmrvgqGKYBSUYGDE5081-72-18 09:40:0040.1[facility] HermannHEMATOLOGY 2018-08-19 09:40:003.9[facility] InefrusYSLNRZEHRS3296-31-43 09:40:000.9[facility] HefbkncOLMMGKCAWW4829-15-90 09:40:008.8[facility] QxgbrkaDREHBSQGOE1711-39-35 09:40:001.2[facility] TgzqebkLESOQCUEMF7232-10-23 09:40:002.0[facility] ZHYXOFFINR0742-22-27 09:40:004.7[facility] IaoqlqyREUGRPSLUS1259-12-44 09:40:00 Test Item Value Reference Range Interpretation Comments INR (test code = INR) 1.09 1 0.85-1.17 [facility] ZbfgkliDMPAMXKSZK4643-10-69 09:40:00 Test Item Value Reference Range Interpretation Comments PT (test code = PT) 13.9 s 12.0-14.7 [facility] KhjfeorLWSWLHOSFE4684-17-10 09:40:00 Test Item Value Reference Range Interpretation Comments PTT (test code = PTT) 31.0 s 22.9-35.8 [facility] SwaffluJSHFDWMOLZ3760-77-82 09:40:0093.0[facility] HermannHEMATOLOGY 2018-08-19 09:40:00 Test Item Value Reference Range Interpretation Comments MCH (test code = MCH) 31.1 pg 27.0-31.0 [facility] TvzhbpyXQDLKYCMFN7185-79-40 09:40:0013.7[facility] HermannHEMATOLOGY 2018-08-19 09:40:0033.4[facility] GwlowicIPLATDIRVD2365-86-02 09:40:0077[facility] NgpewltIQUNHABZBG7777-09-21 09:40:009.9[facility] PmawjuxTKEZWYPIGZ5496-10-72 09:40:0049.7[facility] RvvgkltJWSDZMKYCA9526-40-28 09:40:0016.6[facility] YRPPYRCTQK8343-52-51 09:40:005.35[facility] VbqmjxeJQTNHHTYHX0229-80-58 09:40:00 9.7[facility] HermannPARATHYROID MKEDZEW0300-97-46 09:40:001.02[facility] PARATHYROID YOEEFJH4576-16-14 09:40:000.98[facility] HermannURINE AND STOOL 2018-08-19 09:40:00Negative (08/19/18 4:40 AM)[facility] HermannCHEM PANEL 2018-08-18 10:45:91430Wzmgihbg HermannCHEM CNDDV5419-18-28 10:45:00 Test Item Value Reference Range Interpretation Comments A/G Ratio (test code = A/G Ratio) 0.6 1 0.7-1.6 [facility] HermannCHEM VBCZM2961-22-45 10:45:0030[facility] HermannCHEM PANEL 2018-08-18 10:45:006.9[facility] HermannCHEM HXFDI7548-25-62 10:45:002.6[facility] HermannCHEM MAJSU8996-97-89 10:45:004.3[facility] HermannCHEM IZVKP6836-55-64 10:45:00<0.1[facility] HermannCHEM RWXSY2520-74-72 10:45:000.5[facility] CHEM ECMFF2137-19-03 10:45:00>0.4[facility] HermannCHEM HFRBP5585-57-63 10:45:0021[facility] HermannCHEM IIIZU4195-52-28 10:45:008.5[facility] HermannCHEM LUKNZ2087-42-73 10:45:0071[facility] HermannCHEM SSXJE1482-86-67 10:45:0013 [facility]annCHEM RVONC8073-02-46 10:45:93580Ktmhnvkp HermannCHEM PANEL 2018-08-18 10:45:0027[facility] HermannCHEM NVCMM6320-68-33 10:45:003.6[facility] HermannCHEM BRVMR1191-15-15 10:45:10998Zxsgqdpt HermannCHEM QOOOU4171-18-91 10:45:49412Wdesqwsu HermannCHEM UESMJ3076-07-35 10:45:000.83[facility] HermannCHEM WIFVG5531-23-73 10:45:0010.6[facility] HermannCHEM QXARQ3432-56-34 10:45:001.8 [facility] HermannCHEM TNDCX5143-44-39 10:45:003.6[facility] HermannHEMATOLOGY 2018-08-18 10:45:003.9[facility] FgzzcnlRULMHJBSFM9223-43-57 10:45:002.5[facility] WhukqxmJWQXEGNDPC7361-42-54 10:45:001.9[facility] LoeblvdLGNNTBDETO5990-95-80 10:45:000.6[facility] AuokdocIOFVCNDHZK8231-37-73 10:45:003.8[facility] WIMPTMACCN3236-26-95 10:45:000.2[facility] KlwjtebFEMHYKWAQP5937-68-85 10:45:000.2 [facility] FrrmgehUYBVPOOGEW7099-89-66 10:45:0044.0[facility] HermannHEMATOLOGY 2018-08-18 10:45:0045.3[facility] ElkemjvIMYIRTNPSJ7010-29-87 10:45:006.3[facility] TwchgnwPFEFMEWLHG5381-49-32 10:45:0049.2[facility] NjhdxguFZXXZDLTCL6730-34-59 10:45:0017.0[facility] AxevxalHLRNYTJUSI0260-77-18 10:45:005.30[facility] SBYFYGWQTO5336-89-98 10:45:008.7[facility] RpjjxvzRCCVCGIHPA1553-65-37 10:45:00 92.8[facility] MekfkjgMUKMMZXAKM3850-14-49 10:45:009.7[facility] HermannHEMATOLOGY 2018-08-18 10:45:0013.6[facility] EsnsvhbASWTHPESLP7735-93-82 10:45:60160Hcxcmwoc DmbcmusIASSIGWEOO4715-98-09 10:45:0034.6[facility] ZdcougsKHXKFNDASY4319-26-00 10:45:00 Test Item Value Reference Range Interpretation Comments MCH (test code = MCH) 32.1 pg 27.0-31.0 [facility] HermannPARATHYROID QSOIKEK4959-71-56 10:45:001.05[facility] PARATHYROID XAZDTEV2922-59-27 10:45:001.06[facility] BvwuwnnINBGWLPDOG0583-99-52 04:46:110.9[facility] WxuqidyBOSXPEBKTD4800-69-01 04:46:110.2[facility] JPAQLTSAGA5972-53-29 04:46:115.1[facility] VksljwzTUQCVNJJWX1032-80-90 04:46:110.1 [facility] XybanezCZDWQSHCJP2170-48-85 04:46:117.6[facility] HermannHEMATOLOGY 2018-08-17 04:46:1144.9[facility] PkdytvqLGVDCLEBIT9408-14-85 04:46:1144.2[facility] DuuxwquVKHUFLVANK2636-14-70 04:46:111.3[facility] IwnmhakKAYFYSEPDM9790-57-78 04:46:112.0[facility] JwkbpfcYAYCQCIAAK1482-11-12 04:46:115.2[facility] SGMWPNHZDINU4982-60-94 20:35:0011.9[facility] ZusfyrqKXIOQHDPIVCM6467-19-77 20:35:0064[facility] HkhfpweTAOKESHZMHDU9097-01-30 20:35:14141Uupwbakm [facility] [place] MUFZJKRJLTQR2223-12-27 20:35:003.9[facility] FwcyzvpMNZAXDLLKIMS2777-28-29 20:35:34476Hlmxurqi KnqqapiIZFZLXXJMLHD5138-25-15 20:35:0030[facility] YWXJQBDAGODF8513-26-33 20:35:009.6[facility] PdqxhzcOTTWYLEWEGQE8187-50-59 20:35:0016[facility] SpozdkyVKBTRFCMXXCV5861-19-28 20:35:33989Dirszczd [facility] [place] YSEQFYVQGRKN5874-01-21 20:35:000.91[facility] CgfulahWRGZKGCYNG9488-02-80 20:35:00 Normal (08/16/18 3:35 PM)[facility] JqvoretKFJDUKWIIX7766-50-25 20:35:00Normal (08/16/18 3:35 PM)[facility] PxchvxoHBUBVCBNME0471-88-97 20:35:00 Test Item Value Reference Range Interpretation Comments PTT (test code = PTT) 32.0 s 22.9-35.8 [facility] XyhgdkrRTLITURBMB9103-72-48 20:35:00 Test Item Value Reference Range Interpretation Comments PT (test code = PT) 12.6 s 12.0-14.7 [facility] MwkdftyZRWLPVIHMS2201-61-00 20:35:00 Test Item Value Reference Range Interpretation Comments INR (test code = INR) 0.96 1 0.85-1.17 [facility] CZBM6217[facility]87-03 15:21:00Surgical Pathology Report Case: [id number] Authorizing Provider: Ruma Ndiaye MD Collected: 02/24/2017 1559 Ordering Location: [facility] Received: 02/25/2017 [...] SERRATED POLYP/ADENOMA Signing Pathologist Direct Phone Line: [phone] signed by Kenji Hercules MD on 02/26/2017 at 3:21 [id number] x 3Diarrhea, rule out microscopic colitisA. Right/ascending [...] METER 144 mg/dL 70-110 H TESTED AT [place] [address] ([facility]) (test code = [facility] 1538) [address] POCT-GLUCOSE LDSZS6577-88-32 14:21:00 Test Item Value Reference Range Interpretation Comments POC-GLUCOSE METER 118 mg/dL 70-110 H TESTED AT [facility] [address] ([facility]) (test code = [facility] 1538) [address] BEDSIDE GLUCOSE HNUTOBB3787-03-48 21:51:81404.0[facility] HermannBEDSIDE GLUCOSE WRSJZLS2635-45-07 16:52:06656.0[facility] HermannBEDSIDE GLUCOSE IDGCMEU1521-39-72 12:45:93924.0[facility] RtjolxcRGQMHMYHR7348-66-18 10:30:003.3[facility] BZBPKOQXB5932-54-54 10:30:005.4[facility] VuhutdzNIYPUJXTR2312-81-90 10:30:002.1 [facility] NyaqoowRNFCDLVHC0041-19-14 10:30:13464.0[facility] HermannCHEMISTRY 2011-03-25 10:30:25592.0[facility] CuomereTBHGMHPWZ3237-77-64 10:30:00 Test Item Value Reference Range Interpretation Comments A/G Ratio (test code = A/G Ratio) 0.6 1 0.7-1.6 L [facility] JejngswVGKWFDAVH7270-90-50 10:30:12042.0[facility] HermannCHEMISTRY 2011-03-25 10:30:000.2[facility] WkbgzdyAZCTKAPXT7824-45-72 10:30:000.3[facility] XtmbywbEECIZDCAV7544-49-39 10:30:000.1[facility] XojfgnaRJDAUKENS4501-48-38 10:30:002.4[facility] CbumduiBXCXQEKIR2094-68-58 10:30:004.1[facility] SUQPIXAOP1753-05-77 10:30:05712.0[facility] RglkwrtMWPCTVBZV2356-50-83 10:30:00 140.0[facility] HnoeidrSXSVOCTYT9304-91-11 10:30:008.0[facility] HermannCHEMISTRY 2011-03-25 10:30:0019.0[facility] XyxddarWYAPMGJIF7407-77-22 10:30:22020.0[facility] BofesovTBMYCYNKC3623-32-45 10:30:0021.0[facility] DbgrthoEMPUCOTFT2836-94-18 10:30:001.7[facility] OwsuvufIMTGGMKJK9382-07-18 10:30:0018.1[facility] NMDTNTAXTI2660-93-72 10:30:000.9[facility] QmgvnymAVWENDSPWW6642-26-54 10:30:000.1 [facility] GaipfudLIWCSDVOUQ9029-93-48 10:30:0016.0[facility] HermannHEMATOLOGY 2011-03-25 10:30:009.1[facility] NiordsoWVPUVKXZNY8593-85-05 10:30:001.5[facility] WizgruhTDNXYIIIPQ1832-04-22 10:30:004.3[facility] DorrlxhZKFJUPEBJC8433-57-33 10:30:003.2[facility] DbydrufHXDCDDGVXF5609-19-95 10:30:001.6[facility] XIQQKJEXPA6646-51-80 10:30:0031.4[facility] OgpjjoeEHURUOZHWU9280-08-77 10:30:00 42.0[facility] YzatdcjMIMPLPKMYR1314-66-22 10:30:0015.0[facility] HermannHEMATOLOGY 2011-03-25 10:30:0033.9[facility] CssfkwnLXDXSTBSOV9774-28-61 10:30:00 Test Item Value Reference Range Interpretation Comments MCH (test code = MCH) 31.0 pg 27.0-31.0 N [facility] YjfohywEYQBHYOUTQ0972-93-65 10:30:0091.4[facility] HermannHEMATOLOGY 2011-03-25 10:30:0036.8[facility] RyeukktXDYKHRBOQA9010-10-56 10:30:0012.5[facility] YtjuggaULLRUVPSVL1299-84-22 10:30:0010.0[facility] RjztjojVAWJAYGHQX9073-84-14 10:30:70999.0[facility] JngsbhgPQNRTOWASZ5387-30-29 10:30:004.03[facility] RXGTQGQGKV2388-57-32 10:30:0010.1[facility] BzbkvvwZPEYIJTMM3868-04-50 13:51:00 Test Item Value Reference Range Interpretation Comments A/G Ratio (test code = A/G Ratio) 0.7 1 0.7-1.6 N [facility] EjxfwwaTKTBXGCRP0508-47-58 13:51:000.2[facility] HermannCHEMISTRY 2011-03-24 13:51:003.2[facility] AhtpqjnRKZUPLVYB8945-38-21 13:51:005.6[facility] TccjfnaLHOYEEGXT9996-51-88 13:51:002.4[facility] ZcksgksEGZRJHDBZ3975-71-17 13:51:000.2[facility] UjxwrdbKLBDNMCHU2153-38-15 13:51:58402.0[facility] HAYDDSKIC8206-29-80 13:51:29290.0[facility] IfzprqqOLQJOYXQQ3672-48-71 13:51:000.4 [facility] RbxndrjSPYQQBYAS0454-40-64 13:51:72819.0[facility] HermannCHEMISTRY 2011-03-24 10:08:001.6[facility] QkgllzmJQUOFOIMO3368-36-83 10:08:0015.6[facility] XeavtxnOROBRXIQJ1907-53-66 10:08:0021.0[facility] WvogpeqVLMUIWHVW8999-44-34 10:08:003.6[facility] BsvfsuuGCTVJMPNI3560-12-31 10:08:29591.0[facility] AQBWMENNC6449-47-85 10:08:007.7[facility] CkesvdqSGSEBUCIZ4881-98-82 10:08:07824.0 [facility] GozptnbJJTAOLZVM7291-23-72 10:08:0023.0[facility] HermannCHEMISTRY 2011-03-24 10:08:001.7[facility] YhhfurxCGOZCFKFN7311-19-97 10:08:55133.0[facility] OzbjnqiLPPVDXKZVQ9661-85-66 10:08:00 Test Item Value Reference Range Interpretation Comments PT (test code = PT) 14.8 s 12.0-14.7 [facility] CenterIxoepgcPPYNHIWIAC3121-20-38 10:08:00 Test Item Value Reference Range Interpretation Comments INR (test code = INR) 1.16 1 0.85-1.17 N [facility] CenterKehgfkcRAXOKVMGSO5650-81-23 10:08:00 Test Item Value Reference Range Interpretation Comments PTT (test code = PTT) 34.9 s 22.9-35.8 N [facility] CenterJdsxwfeWBUXPHSYNQ8912-68-17 10:08:000.1[facility] HermannHEMATOLOGY 2011-03-24 10:08:004.1[facility] QoozkfqGMQGDGUPVN4711-02-43 10:08:002.8[facility] GceowhvRWOIAFJPWN3708-77-23 10:08:000.8[facility] FpchikyEPWBOQTBYB3384-38-88 10:08:001.8[facility] NivqkwdUMDPQVRWSP6368-48-35 10:08:0028.5[facility] ZUZTIENWUW3715-35-37 10:08:008.6[facility] QixgdxpLEYPUEUIGG4545-12-55 10:08:00 19.0[facility] RzknmxfRYCHZPGVUO3422-62-61 10:08:001.3[facility] HermannHEMATOLOGY 2011-03-24 10:08:0042.6[facility] ZjzdstsFTSCTQAYKG4903-30-82 10:08:009.7[facility] AtsoxfjQPFEIWLHCG1843-70-52 10:08:003.67[facility] UmdhjflLBRHKZZCWK3265-58-47 10:08:0034.9[facility] QbwrmgaAJHSHPOZQX1371-82-01 10:08:0015.1[facility] YVLPUCYKOG9626-93-02 10:08:43748.0[facility] TbcgfjpCNUUXNFHET6742-20-68 10:08:00 90.5[facility] UwomjfpXGZJVBVWDS8622-15-01 10:08:00 Test Item Value Reference Range Interpretation Comments MCH (test code = MCH) 31.6 pg 27.0-31.0 H [facility] OthrckxWEHBAKOMKF1024-80-47 10:08:009.5[facility] HermannHEMATOLOGY 2011-03-24 10:08:0011.6[facility] WhsekaiIQPYYIZBJQ2004-04-25 10:08:0033.2[facility] ZbfixcaGINPUTNPGU7514-36-00 10:08:00Negative *NA*(03/24/2011 05:08:00) ?? [facility] SdznyrcGQBQFUYHF7900-92-27 10:24:0036.0[facility] HermannCHEMISTRY 2011-03-23 10:24:57382.0[facility] QtekkskMUBRUUIFL2047-92-09 10:24:0097.0[facility] UreuhwjWBTCRRIZH5931-88-22 10:24:0022.0[facility] AklrpnbQTSJQGEEO5444-59-65 10:24:001.5[facility] OijgwyoACLYVTCSW9390-88-88 10:24:0020.0[facility] CBDBBWHOG0695-98-25 10:24:56481.0[facility] IjpvleiEPEBYFNKY6090-01-29 10:24:007.8 [facility] GhshxukNZPARCRSQ2676-12-93 10:24:39057.0[facility] HermannCHEMISTRY 2011-03-23 10:24:004.7[facility] SmbvwknHPIJXNEBG5767-21-61 10:24:0019.2[facility] BbmxoqmFSBVMQQKJ7225-15-59 10:24:002.8[facility] FskjpqoPQSFMDHPB3756-38-42 10:24:001.9[facility] YbcoyoiPZBIUZMAK1288-54-89 10:24:36226.0[facility] WBLZDBJRK8058-51-44 10:24:00 Test Item Value Reference Range Interpretation Comments A/G Ratio (test code = A/G Ratio) 0.7 1 0.7-1.6 N [facility] FchxpszQYNOEFYGE0263-24-55 10:24:00 Test Item Value Reference Range Interpretation Comments B/C Ratio (test code = B/C Ratio) 15.0 1 6-25 N [facility] KyhruqwCGLIUPCHQ8656-31-53 10:24:001.0[facility] HermannCHEMISTRY 2011-03-23 10:24:00324.0[facility] FvfebjgPPRUDRLMI4310-03-17 10:24:34696.0 [facility] EpqbwhmMSINVNFJQ5780-16-86 10:24:003.2[facility] HermannHEMATOLOGY 2011-03-23 10:24:0014.8[facility] YoyxzvkMUGLEXJNAA9156-32-25 10:24:009.8[facility] XevuojtGVOUKVWCFU5104-86-99 10:24:46890.0[facility] FduzpicWVGUYKUSOF9291-21-68 10:24:00 Test Item Value Reference Range Interpretation Comments MCH (test code = MCH) 31.0 pg 27.0-31.0 N [facility] LkmquuyNNWKDLYALC0549-60-21 10:24:0034.1[facility] HermannHEMATOLOGY 2011-03-23 10:24:0032.7[facility] TnndubxTEQUSIFOVQ7182-71-56 10:24:0091.0[facility] HitifaiLMYHDSNLFP2291-26-55 10:24:0011.2[facility] EbbthquVGHNAZIDHJ2645-18-48 10:24:006.7[facility] UrikfozTBEZWZANLZ9727-62-84 10:24:003.6[facility] NRUKZBKJCG6935-81-84 10:24:00Slight *ABN*(03/23/2011 05:24:00) ??[facility] FsursmtIPGLAWYRRM5766-13-38 10:24:002.1[facility] FdcfectQJKYLRNSTF5927-58-22 10:24:002.7[facility] EwqpqabQBUYBLRCYP1962-39-89 10:24:000.9[facility] TWGCGEKNYO7631-58-70 10:24:00Normal (03/23/2011 05:24:00) ??[facility] JCRLBHTRPJ2365-01-06 10:24:0015.0[facility] QzasolgVYXBDPWDBR5603-24-49 10:24:00 0.0[facility] UzthxjyYKLWTADGBZ2135-64-83 10:24:001.0[facility] HermannHEMATOLOGY 2011-03-23 10:24:001.0[facility] CgncwdsXPFCUNGKDM7494-31-82 10:24:001.0[facility] GyauycxQHEVTMZCAN8574-43-36 10:24:0031.0[facility] YcodtkiYYPLZTIGPO8782-67-14 10:24:0013.0[facility] XdjawhxFEVLDDAUTU5582-06-27 10:24:0039.0[facility] XENYRDLQPW7321-15-96 10:24:000.1[facility] ApthzecQBBZINLMWU7895-01-48 10:24:00 10.0[facility] CgdqegjEAWAVHVFYW6021-05-70 22:20:00??[facility] HermannURINALYSIS 2011-03-22 22:20:003.0[facility] HgdaltdSYIMUGHZQG7988-22-22 22:20:00Occasional /HPF *NA*(03/22/2011 17:20:00) ??[facility] TyqbnxvZEJTKSQEHC0370-94-12 22:20:00 Few /LPF *NA*(03/22/2011 17:20:00) ??[facility] YiwerkvJVBVDZURMO5661-15-99 22:20:00Few /LPF *NA*(03/22/2011 17:20:00) ??[facility] HermannURINALYSIS 2011-03-22 22:20:00<1.0[facility] CkokbnmAYMRKVEFKI1510-32-17 22:20:00Negative (03/22/2011 17:20:00) ??[facility] NcytauhEFYNNZRQYT2530-38-98 22:20:00Negative (03/22/2011 17:20:00) ??[facility] SvqdmvgBRABEQBQSI6765-77-36 22:20:61805 mg/dL *ABN*(03/22/2011 17:20:00) ??[facility] YwubihkVUQDTBIRVH8491-78-90 22:20:0010 mg/dL *ABN*(03/22/2011 17:20:00) ??[facility] LwvnuslKYWOIUVGVY0424-06-98 22:20:00 Negative *NA*(03/22/2011 17:20:00) ??[facility] BjkkrbjYLZRZWGQIJ5735-37-83 22:20:00Moderate *ABN*(03/22/2011 17:20:00) [facility] 2011-03-22 22:20:00Negative mg/dL *NA*(03/22/2011 17:20:00) ??[facility] TUCTTYVFCL1621-19-55 22:20:00 Test Item Value Reference Range Interpretation Comments UA Spec Grav (test code = UA Spec 1.016 1 N Grav) [facility] CenterUjwlonlAXUWUMVRUA7037-31-61 22:20:00 Test Item Value Reference Range Interpretation Comments UA pH (test code = UA pH) 5.5 1 5.0-8.0 N [facility] CenterZtmlapsXWFQOBHFWG6292-89-69 22:20:00Yellow *NA*(03/22/2011 17:20:00) ?? [facility] CenterVaybjlbIYFNKSJALI6407-46-73 22:20:00Slight *ABN*(03/22/2011 17:20:00) ??[facility] MrczjwzSCZPEOELE0290-62-88 14:40:000.2[facility] HermannCHEMISTRY 2011-03-22 14:40:000.1[facility] ZkporyeDEVHJZNCBR4398-12-49 14:40:00Negative *NA*(03/22/2011 09:40:00) ??[facility] CenterDpqqzpnRZJAXUCAYA2300-82-18 14:40:00 Negative *NA*(03/22/2011 09:40:00) ??[facility] CenterCihpiasYBQSVAENZC2581-06-90 14:40:00Negative *NA*(03/22/2011 09:40:00) ??[facility] HermannIMMUNOLOGY 2011-03-22 14:40:00See Note 9(03/22/2011 09:40:00) ??[facility] CenterannCHE[facility]Y 2011-03-22 12:05:001.67[facility] EgsccrzCUGETEYEN3929-43-43 12:05:000.044[facility] HermannBEDSIDE GLUCOSE NLLZLPB9203-77-60 17:19:33771.0[facility] HermannBEDSIDE GLUCOSE OLGPLME8490-98-30 12:36:49397.0[facility] GksnurtZKFOHMKRT0553-68-50 08:07:0018.5[facility] HnhtcrdUWJJWQWIP6895-84-51 08:07:003.5[facility] IMLHBLDTZ5905-62-07 08:07:0021.0[facility] TmxxqrpBQLTTMTJP1531-51-28 08:07:00 147.0[facility] OthtzfqSMKRIDSFN8503-20-11 08:07:001.4[facility] HermannCHEMISTRY 2011-03-15 08:07:08066.0[facility] RtxqproPOONIHDZY1665-55-72 08:07:008.1[facility] UmdwyowSONGHLKUR8570-53-42 08:07:0097.0[facility] IfhavabNKWLQYQTM8615-35-63 08:07:0021.0[facility] LoytfddXTNGQMEYY8417-76-75 08:07:001.7[facility] VYQNECYVIM5836-77-11 08:07:0016.7[facility] LaymgtpTCMXLYYVYP3028-37-23 08:07:00 12.4[facility] ApccffwMVWZCWYJXJ2311-14-51 08:07:0063.3[facility] HermannHEMATOLOGY 2011-03-15 08:07:000.6[facility] LrjypacCZEMLSFHYA4334-43-50 08:07:001.1[facility] RystmjeHKRHFTVJKO8633-77-56 08:07:000.1[facility] RsymgvbMPNRBMXZEN9277-90-18 08:07:001.5[facility] BhjkzfrNBBGBPZGCP0510-52-54 08:07:005.8[facility] IXFNPHOTEI0902-87-42 08:07:001.3[facility] FnstyswSPRXMNHPMQ5978-95-51 08:07:006.3 [facility] BynvakbWTSYFTFQKU4849-87-77 08:07:00 Test Item Value Reference Range Interpretation Comments MCH (test code = MCH) 31.6 pg 27.0-31.0 H [facility] ZtigqdgWFKDPDURIZ7161-38-18 08:07:003.56[facility] HermannHEMATOLOGY 2011-03-15 08:07:0090.7[facility] AmazopbOANSXRVAIQ8558-26-24 08:07:0032.3[facility] GzsszvpDDJVATRQJJ5914-72-75 08:07:0011.3[facility] NbagkcjRVKLSWPOJY8066-72-74 08:07:009.1[facility] GdbupbcBSLLMMFRIP7242-04-63 08:07:0010.1[facility] GQQEAQOFKS0646-62-20 08:07:06025.0[facility] BnshuvvWCVPSQNPLH1354-29-44 08:07:00 14.7[facility] CdjtytvVXTGWHMUNA2587-13-93 08:07:0034.8[facility] HermannBEDSIDE GLUCOSE HVICKGJ8300-07-75 02:08:82832.0[facility] HdbawetJVFAUPNVX6886-73-46 14:30:002.0[facility] PhxbntoFZRRATBBD1879-21-43 07:41:000.042[facility] QHFMXOEIP7306-12-12 07:41:0031.0[facility] ZbrzejfWGYJAVSIM8067-57-95 07:01:001.6 [facility] HviwnfcMAWKHRYHPF9866-29-32 07:01:00 Test Item Value Reference Range Interpretation Comments INR (test code = INR) 1.15 1 0.85-1.17 N [facility] TgwvzbuPRNDHYNMDD4428-95-35 07:01:00 Test Item Value Reference Range Interpretation Comments PT (test code = PT) 14.7 s 12.0-14.7 N [facility] ThhelnrBGYBZVELPI9833-60-95 07:01:00 Test Item Value Reference Range Interpretation Comments PTT (test code = PTT) 30.3 s 22.9-35.8 N [facility] GzclvlaSYXLKUCIT5926-22-43 06:50:0049.0[facility] HermannCHEMISTRY 2011-03-14 06:50:0023.0[facility] ZwtnwzlMXCCSVBTZ9144-43-83 06:50:004.3[facility] WysulvqDUQXCHGRA8441-78-18 06:50:00 Test Item Value Reference Range Interpretation Comments A/G Ratio (test code = A/G Ratio) 0.8 1 0.7-1.6 N [facility] JuodywtIVLKJFOFM2114-20-12 06:50:003.4[facility] HermannCHEMISTRY 2011-03-14 06:50:0033.0[facility] TqncymsDRMABDJSR3536-74-95 06:50:0027.0[facility] IsnlidpYAQWVFMAP1639-10-22 06:50:000.4[facility] QfngulbFEEOWJHWY1321-00-51 06:50:006.2[facility] XfmwxxzVBLQJNPFK2405-52-79 06:50:09214.0[facility] VBUYUDOJS0943-59-13 06:50:002.8[facility] FcxommeDFMQBFUOI1346-56-43 06:50:00 Test Item Value Reference Range Interpretation Comments B/C Ratio (test code = B/C Ratio) 14.0 1 6-25 N [facility] YwiprmbGEQKDLOOM8398-97-29 06:50:008.4[facility] HermannCHEMISTRY 2011-03-14 06:50:0021.8[facility] MnhrvfiQZEPVYJGN6399-83-60 06:50:0019.0[facility] IzxnnwhTKRZUTKAC0207-92-45 06:50:41851.0[facility] DhzugmqKAFXJZPDG3202-95-83 06:50:04704.0[facility] LyemlnlAZKOXRKJB1813-30-42 06:50:003.8[facility] UQZVAAHLY4783-26-75 06:50:0020.0[facility] DtyptynWXGSNGKWB3551-13-91 06:50:001.4 [facility] TwrvkbwAOWWKXNUV7892-57-82 06:50:0091.0[facility] HermannCHEMISTRY 2011-03-14 06:50:001.2[facility] UloqnhrKHUXKUAKJF4613-35-12 06:50:0010.3[facility] CvfvniaZJAVSAECMO4115-99-85 06:50:006.2[facility] MfhebinRNSILRGBTF9333-99-65 06:50:0061.3[facility] LhqmmopZWBESCBDNJ6429-90-48 06:50:0022.2[facility] UXESWZXWHC8686-67-42 06:50:000.0[facility] OthduloAKUMNMHGQG7565-60-17 06:50:001.2 [facility] GokhiyaVJPWGLQDXB9790-74-70 06:50:007.3[facility]annHEMATOLOGY 2011-03-14 06:50:000.0[facility] HkounhjIHABJUJLJZ2035-60-00 06:50:000.7[facility] ImxpxeqYHXZGUEXQS0481-67-64 06:50:002.6[facility] UoyxmhtTSLBNXLUAV6434-53-05 06:50:00Slight 52*ABN*(03/14/2011 01:50:00) ??[facility]annHEMATOLOGY 2011-03-14 06:50:00Slight 51*ABN*(03/14/2011 01:50:00) ??[facility] RCBAVLEEFX6473-08-56 06:50:001+ 49*ABN*(03/14/2011 01:50:00) ??[facility] YXKTHANTNH6074-79-20 06:50:00Slight 50(03/14/2011 01:50:00) ??[facility] DVOGJOPUMQ4757-82-60 06:50:0013.3[facility] FfkohmcYUGHCHFVTQ6298-93-21 06:50:00 11.8[facility] SkbesecMINSXEYRID3041-49-26 06:50:004.18[facility]annHEMATOLOGY 2011-03-14 06:50:0090.6[facility] XoymobeBYUWUEUHCQ9792-80-47 06:50:00 Test Item Value Reference Range Interpretation Comments MCH (test code = MCH) 31.8 pg 27.0-31.0 H [facility] CxfxueyRJSOZXEBZG0520-65-51 06:50:0037.9[facility]annHEMATOLOGY 2011-03-14 06:50:0010.0[facility] TxdtcjcVQWSOABZFK5636-16-58 06:50:0013.5[facility] OvtrqbgXGJJFIWMHR9391-89-59 06:50:34269.0[facility] QigreagXATLZQXYAM1014-97-71 06:50:0035.1[facility] JnqogsdCPOSGINFY7562-84-52 06:50:0027.0[facility] QDASDBXVD4742-68-37 06:50:003.2[facility] LobybsoBXQYDWXJF3399-13-45 06:50:002.9 [facility] GnnsurdIUHZFBLLH1125-72-38 06:50:0032.0[facility]annCHEMISTRY 2011-03-13 06:50:006.1[facility] IuunhfuIBXJPJFOA4897-03-84 06:50:00 Test Item Value Reference Range Interpretation Comments A/G Ratio (test code = A/G Ratio) 0.9 1 0.7-1.6 N [facility] TifpvchBETZCUCQD5564-31-62 06:50:000.3[facility]annCHEMISTRY 2011-03-13 06:50:000.4[facility] SftxksrITJWKUMKI7768-86-74 06:50:000.1[facility] QturhrtZDANBJZCA0171-13-55 06:50:49206.0[facility] HermannBEDSIDE GLUCOSE TESTING 2011-03-07 16:38:20835.0[facility] HermannBEDSIDE GLUCOSE OLXIGNJ4710-92-09 10:32:59774.0[facility] HermannBEDSIDE GLUCOSE BWDIRAP4582-13-28 02:38:50196.0 [facility] YtjcalvJFPRNQXIA8592-60-09 07:36:00>60.0[facility]annCHEMISTRY 2011-03-05 07:36:34722.0[facility] LimwdhvKJKPRNQBG9652-51-57 07:36:23302.0 [facility] BhxwfwfBPPJIWZIK7242-78-53 07:36:003.8[facility]annCHEMISTRY 2011-03-05 07:36:008.4[facility] BrdeknjLXFTGMFRZ3656-50-91 07:36:0015.8[facility] ZrkqwafVQWHGGJJY9066-75-57 07:36:0025.0[facility] VrwhqmpEGUJHGNST3515-80-30 07:36:0016.0[facility] IzozqtkVYOKNMVMF8686-79-69 07:36:000.9[facility] VGJQAPZVU5458-69-85 07:36:0077.0[facility] DmsjhtsEBXRUYVEYC6918-52-40 07:36:00 45.6[facility] ZpumnbwHNWYGXXLBS6861-39-20 07:36:0010.4[facility]annHEMATOLOGY 2011-03-05 07:36:003.5[facility] ThmaveeWKRMAHKBGU3238-84-52 07:36:0038.5[facility] KkynpuzUNNWZSBZLZ7786-71-79 07:36:000.4[facility] GmnyqjwPRPMSVQAVS4935-99-33 07:36:000.2[facility] JirpupjUQQSKZILUC6747-14-42 07:36:002.0[facility] BHDQWDTPTL9481-20-41 07:36:005.8[facility] PjggtxkOANBYBNTHG5654-27-36 07:36:004.9 [facility] NekdrxvSUSSLKXGNV2940-63-51 07:36:001.3[facility]annHEMATOLOGY 2011-03-05 07:36:009.9[facility] JlvnbncSEEHVNIJLT9095-56-12 07:36:0092.6[facility] HmnnpftXEHXOYYYKA7915-70-33 07:36:003.08[facility] PzaedrySYZOITFKSJ1473-27-83 07:36:0012.7[facility] VrmwvasTRCQQNFGUU2168-53-63 07:36:00 Test Item Value Reference Range Interpretation Comments MCH (test code = MCH) 32.0 pg 27.0-31.0 H [facility] DgbttufSNVUDIQCZN7368-76-69 07:36:0028.5[facility]annHEMATOLOGY 2011-03-05 07:36:0034.6[facility] MzcqxonJOTFPSEVTC9310-82-82 07:36:63770.0 [facility] LuhlsoxDVRICSHJFZ9175-26-09 07:36:0016.5[facility]annHEMATOLOGY 2011-03-05 07:36:009.1[facility] TrqcjxgEVLTEUIHVO5135-37-21 10:21:54362.0[facility] DlnvfezCTFSASUKPW6136-07-72 10:21:0016.4[facility] ErcumziTODDRCLARH2499-01-24 10:21:0033.6[facility] KmisfdjECMCDMXNFX4382-97-52 10:21:00 Test Item Value Reference Range Interpretation Comments MCH (test code = MCH) 31.8 pg 27.0-31.0 H [facility] SwvaqnjCFYFHUFUXH5635-28-44 10:21:0012.4[facility]annHEMATOLOGY 2011-03-03 10:21:009.4[facility] VhfumaxRYYBOVDTXA5762-95-64 10:21:0094.6[facility] DjqbkyzOXSJMPLVAW5011-00-20 10:21:0030.8[facility] PxcjooiSQIOBWSWCG8865-81-37 10:21:0010.4[facility] SpatxlsRKIKWWKIMM1852-83-84 10:21:003.25[facility] BZILSSZGHD6626-06-73 10:03:0016.0[facility] VdcrzdiTJPLKXWZMW1528-20-49 10:03:00 9.1[facility] PtvvimsPUZDAURVUG9083-67-76 10:03:71788.0[facility]annHEMATOLOGY 2011-03-02 10:03:003.23[facility] UizvxymGREDGJAMNA0947-60-87 10:03:0094.5[facility] EumzhtfUORDLATLQZ9418-43-83 10:03:0030.5[facility] ZvpwnuwHQZOOGGNZY3677-43-93 10:03:0010.3[facility] VwxdsesDFKRHOERSK1285-34-09 10:03:0033.6[facility] IIWNHUJIHJ9919-09-48 10:03:0012.7[facility] KhqzrzhCKJOIRBSUR7316-36-87 10:03:00 Test Item Value Reference Range Interpretation Comments MCH (test code = MCH) 31.8 pg 27.0-31.0 [facility]CfmunslUQUAXRJLLC8042-99-31 20:38:00??[facility]annURINALYSIS 2011-03-01 20:38:00Clear (03/01/2011 15:38:00) ??[facility] 2011-03-01 20:38:00 Test Item Value Reference Range Interpretation Comments UA Spec Grav (test code = UA Spec 1.009 1 N Grav) [facility] CenterAhpwsouXAKRSMJLSD4951-33-07 20:38:00Yellow *NA*(03/01/2011 15:38:00) ?? [facility] CenterJuxljimPMIGVKQZXR1909-70-95 20:38:00 Test Item Value Reference Range Interpretation Comments UA pH (test code = UA pH) 5.5 1 5.0-8.0 N [facility] CenterTnofoelCROEKMQJCE3086-22-56 20:38:00Negative mg/dL *NA*(03/01/2011 15:38:00) ??[facility] UdcwxixXTLMGUBCBA1377-96-46 20:38:00Negative mg/dL *NA*(03/01/2011 15:38:00) ??[facility] DuooxqvIVHGUCFHVZ1646-36-45 20:38:00 Negative *NA*(03/01/2011 15:38:00) ??[facility] QjtauvkHMYZHBEQXY3561-16-11 20:38:00Negative (03/01/2011 15:38:00) ??[facility] KlobfmbHRBUJYAZPH3807-57-83 20:38:00<1.0[facility] SaekhhdSUHOUPHZBU7500-22-27 20:38:00Negative (03/01/2011 15:38:00) ??[facility] CpchefnJUTIGQVFYH2103-88-03 20:38:00Negative (03/01/2011 15:38:00) ??[facility] VodroevTIBBSAHVXZ0981-54-30 20:38:00Few /LPF *NA*(03/01/2011 15:38:00) ??[facility] ZsibvzhTPXUNHWRGQ4586-72-74 20:38:00 Moderate /LPF *ABN*(03/01/2011 15:38:00) ??[facility] ZszfroxBRIWCWZABA4021-89-81 20:38:001.0[facility] MwbmjecPFSNABMOUI4747-09-99 20:38:0010 mg/dL *ABN*(03/01/2011 15:38:00) ??[facility] ElvlqvwUYDOVNVBJR0538-54-53 08:19:005.7 [facility] BqfxqyxANCCAFMZFY3128-70-75 08:19:004.8[facility]annHEMATOLOGY 2011-02-28 08:19:001.0[facility] UgfuhixPOFWNUNYGB2552-04-26 08:19:008.9[facility] NcycjmnEMCPDOXGWR4890-40-69 08:19:002.8[facility] BosousvRNHLIPVXAO2162-63-55 08:19:0047.3[facility] XbecwniOGFVDNCFCA9961-26-11 08:19:0040.0[facility] GORJNAVXYO3198-33-03 08:19:000.1[facility] YsbxgpjUCFZVACYJD1902-63-02 08:19:001.1 [facility] JngcmgaRMLWISFWZR8039-19-68 08:19:000.3[facility]annCHEMISTRY 2011-02-27 08:43:002.8[facility] DkomabaMEWEPUJBJ7334-35-73 08:43:00 Test Item Value Reference Range Interpretation Comments B/C Ratio (test code = B/C Ratio) 14.0 1 6-25 N [facility] EzoxkmtVMKBVTAWR1808-88-19 08:43:0013.8[facility]annCHEMISTRY 2011-02-27 08:43:00 Test Item Value Reference Range Interpretation Comments A/G Ratio (test code = A/G Ratio) 0.8 1 0.7-1.6 N [facility] KrmlrfcXJUDIMVPF9334-11-43 08:43:005.0[facility]annCHEMISTRY 2011-02-27 08:43:008.4[facility] BzjxcquBNYWLFKAO5343-01-49 08:43:0024.0[facility] YqmijphVHDNGXFJG6045-06-69 08:43:002.2[facility] SmzsppkCTFRFVZZW5678-25-69 08:43:000.3[facility] KicyljxIRPNTFZON8524-88-07 08:43:0021.0[facility] PSXNEORMD0766-88-17 08:43:0098.0[facility] TmgqkvmUYRJKUTFR1745-68-80 08:43:0028.0 [facility] YcpzjdlQOYQNBXKA6244-10-10 08:43:0010.0[facility]annCHEMISTRY 2011-02-27 08:43:003.8[facility] VhwosqyEUWPZOKHP5081-05-63 08:43:61445.0[facility] AgtbjyoTFWIBTOCQ0639-20-35 08:43:000.7[facility] JmjirznLHJEYVMFI5155-85-84 08:43:00909.0[facility] EojurdoNJPQYRGAP0095-51-67 08:43:43114.0[facility] HLXRGMWJSG8745-93-24 08:43:000.9[facility] NrqdtbaKNLHQAVTCD7020-09-10 08:43:000.3 [facility] JgoqygjPNMRGTBHFX4050-32-69 08:43:003.3[facility]annHEMATOLOGY 2011-02-27 08:43:000.1[facility] WqcppsmHJVHCIYJEP6376-66-46 08:43:001.2[facility] PngilktMYIYRZMJMX9520-02-05 08:43:006.0[facility] SpzahrmNVDFVSGSRA4566-06-83 08:43:008.3[facility] BzvkilvTYNVYMWHJG2971-85-74 08:43:003.1[facility] BEEMWUXTSF5623-70-70 08:43:0056.6[facility] QjjyvfwGEHKUTZIJS5059-88-54 08:43:00 30.8[facility]annBEDSIDE GLUCOSE ETIUSEX3715-87-94 22:17:11286.0[facility]annBEDSIDE GLUCOSE MNYPHHB4441-75-47 18:30:71719.0[facility]annBEDSIDE GLUCOSE EFRRTEZ1562-73-20 11:15:50008.0[facility] FsoqcggTVHUKEOGE3128-62-34 06:52:0015.6[facility] PjukxiqJXEDLXFEK4609-60-99 06:52:0025.0[facility] JUULBTEIC2179-90-00 06:52:007.9[facility] JjylgjjGFWFVPEGZ2477-30-37 06:52:45310.0 [facility] DtrodfzYEOTSGNOJ0903-19-09 06:52:003.[facility]annCHEMISTRY 2011-02-26 06:52:000.5[facility] TfcwfhmKQIBDMPRQ0292-06-03 06:52:74709.0[facility] UxvgqcmPJLTXOGRV2606-54-38 06:52:009.0[facility] FmfmgenUMFXEDUWM3927-52-66 06:52:64800.0[facility] JrsuncoEHUPTCOTXB9222-40-95 06:52:0010.5[facility] SJKAAUPGEN2524-58-64 06:52:0031.2[facility] QrentwcYQWKGCWUL0093-55-42 08:43:001.9 [facility] PqtqtjfJSTCTFGVZ8219-45-08 08:43:007.9[facility]annCHEMISTRY 2011-02-24 08:43:01411.0[facility] WrglewyHAGVKKMQJ5540-40-58 08:43:0024.0[facility] LqwcuomUHGXYDDGF2135-78-43 08:43:12020.0[facility] MchmrbwIFIGYVHRG8882-77-26 08:43:000.6[facility] UynvvbvYXLXOXXMM9521-68-71 08:43:0012.0[facility] HQIHXZSIM5945-73-38 08:43:0089.0[facility] YyevjxyDQQHQMBJB5280-86-13 08:43:003.7 [facility] ZvbhloyWQSUSXXZH0259-43-35 08:43:0015.7[facility]annHEMATOLOGY 2011-02-24 08:43:0030.7[facility] DgifevhNUVHEPTGOV8860-22-55 08:43:0010.3[facility] PebfdetVIVMIHZAJQ7502-56-67 08:43:72993.0[facility] XhpzovnHIMSHBJWU9819-53-03 07:22:001.7[facility] QcuuulaJONGTBLDN7958-41-40 07:22:004.64[facility] YCHDMNZRG3070-41-97 07:22:001.1[facility] AiuhslrHPNPFDHQO3072-78-34 07:22:001.16 [facility] BrmvtsyTIPFGLVIM0862-26-04 07:22:004.4[facility]annCHEMISTRY 2011-02-21 07:22:0016.9[facility] RlfvfoaSVDTHXPII5583-78-77 07:22:006.0[facility] MkiioziDKVOMQVMA1341-33-91 07:22:000.4[facility] TzjyxekSHDJXKXRW1599-26-84 07:22:71796.0[facility] OxqvbcwAIMAQVGEW2023-78-84 07:22:004.9[facility] CAUSGTJLU2829-52-79 07:22:97405.0[facility] UctwopbXGEJKJNDJ8349-82-29 07:22:007.7 [facility] IlplgfdZDJTCAJGD1541-80-94 07:22:59707.0[facility]annCHEMISTRY 2011-02-21 07:22:0019.0[facility] KqtanctJWOMBHJWI4746-01-68 07:22:003.7[facility] RcgwakyKDXDKZXDWE9154-35-79 07:22:000.6[facility] QdeyjdePKPCBNZFIA3100-26-23 07:22:000.9[facility] MspjvvdXMFTZBPJQM0935-62-04 07:22:000.0[facility] QSLOHQVVQT2622-56-92 07:22:006.9[facility] VvgugkwPKALKLLYAI1447-79-49 07:22:009.6 [facility] GemsxgxNDYRVESRXP4325-11-42 07:22:005.2[facility]annHEMATOLOGY 2011-02-21 07:22:000.3[facility] VkstpgyVMASOHJMCQ9967-29-85 07:22:002.3[facility] DfrhiegRQQZPTAMCW6772-16-56 07:22:0057.5[facility] TbkjjwrROLCOLWNJL8311-74-51 07:22:0025.7[facility] SiylrhlGSEYLSNZAY9121-76-08 07:22:0034.1[facility] GBQXITDZGY9543-94-23 07:22:28256.0[facility] WxzpxfoZVAAAPKOVF1073-44-92 07:22:00 16.2[facility] GlhjnieXEWNRTJCBI2111-63-36 07:22:007.8[facility]annHEMATOLOGY 2011-02-21 07:22:0032.4[facility] RteuywsRGMGHVEPNO1022-37-31 07:22:0096.0[facility] EocvuqsPZFDSXZEQG9659-85-19 07:22:00 Test Item Value Reference Range Interpretation Comments MCH (test code = MCH) 32.7 pg 27.0-31.0 H [facility] CyopjjfSNIIGWJJGE2543-35-68 07:22:003.38[facility]annHEMATOLOGY 2011-02-21 07:22:0011.0[facility] ZgaxjfiEXPNLPCABS5444-88-61 07:22:009.0[facility] NbcirocOIQGIFTHQ1800-78-64 14:50:003.1[facility] IrbtklyUVOCFFOXU9938-54-87 05:50:003.4[facility] NntqmofHCJBHHCJT8520-84-64 05:50:005.08[facility] MCQSDLPWZ4023-53-98 05:50:001.28[facility] FaayemdHYCRBNNJX0602-75-33 05:50:001.27 [facility] WsqlufgXNHYFVGAS7632-70-10 05:50:005.12[facility]annHEMATOLOGY 2011-02-20 05:50:0095.8[facility] TrpwobyLRUKAJTOGE3490-70-90 05:50:80687.0 [facility] IiorhxxNXDPOGLPHK1031-80-35 05:50:007.8[facility]annHEMATOLOGY 2011-02-20 05:50:00 Test Item Value Reference Range Interpretation Comments MCH (test code = MCH) 32.2 pg 27.0-31.0 H [facility] HgmsdtySCGKPTTCHV0530-58-35 05:50:0033.7[facility]annHEMATOLOGY 2011-02-20 05:50:0016.5[facility] LledzajHZRFEMBCDN1003-32-63 05:50:003.19[facility] YrrqnxbFGNBODEHQG6360-72-20 05:50:006.9[facility] LrastywYIBTNZDCFE4094-15-22 05:50:000.4[facility] VhtsplcPJWKVEGJCI0509-21-93 05:50:000.0[facility] THDIQYPRGX1304-44-03 05:50:000.6[facility] UmurmecMXBZBMJQNR4642-20-11 05:50:00 63.4[facility] XpinhbpTMYYAUUZYS2096-42-19 05:50:0020.5[facility]annHEMATOLOGY 2011-02-20 05:50:009.3[facility] WsbzaboGPYLNBRVTM0456-88-17 05:50:006.4[facility] XwgvaieRIBPXKADQT2583-97-52 05:50:000.4[facility] SzvohimRODXPKJTSG7416-93-36 05:50:004.4[facility] ViqyvtfPEFSBBSBFW0155-13-93 05:50:001.4[facility] KZKYDPGWH8352-87-06 21:20:001.02[facility] FngduyrIQEVWLSVJ9780-16-75 21:20:004.08 [facility] QfpainyKTUSOOTJM4592-77-58 21:20:004.12[facility]annCHEMISTRY 2011-02-19 21:20:001.03[facility] LqhtktyJLODCQKVK4283-24-52 21:20:0066.0[facility] QshykhtCOCHFQDCK0299-94-58 21:20:000.8[facility] XagkkacRLXOJNPTD7644-00-63 21:20:002.3[facility] SufrcldQUVEAXBQV0364-11-00 21:20:004.8[facility] DDEQZWFZV0907-96-42 21:20:0067.0[facility] SmrhuzrHVYGHXRKT7842-38-04 21:20:002.5 [facility] ZfalfqdZGFJLUADE5994-38-15 21:20:00 Test Item Value Reference Range Interpretation Comments A/G Ratio (test code = A/G Ratio) 0.9 1 0.7-1.6 N [facility] EdjtvwcWHSRGENEH3437-29-16 21:20:16642.0[facility]annCHEMISTRY 2011-02-19 21:20:00 Test Item Value Reference Range Interpretation Comments B/C Ratio (test code = B/C Ratio) 20.0 1 6-25 N [facility] DhknnrzOWMVCKWDAV3967-69-53 21:20:00 Test Item Value Reference Range Interpretation Comments PTT (test code = PTT) 29.4 s 22.9-35.8 N [facility] UgflrnsMHDEYOEQQE9763-50-14 21:20:00 Test Item Value Reference Range Interpretation Comments PT (test code = PT) 13.9 s 12.0-14.7 N [facility] StqulquWRNPRKBAPS3031-89-09 21:20:00 Test Item Value Reference Range Interpretation Comments INR (test code = INR) 1.07 1 0.85-1.17 N [facility] YowgtciYSFYUDYLRM6103-77-32 21:20:003.4[facility]annHEMATOLOGY 2011-02-19 21:20:00 Test Item Value Reference Range Interpretation Comments MCH (test code = MCH) 32.2 pg 27.0-31.0 H [facility] DffqaiqKYCBEUYQHX7453-65-90 21:20:0095.7[facility]annHEMATOLOGY 2011-02-19 21:20:0033.6[facility] WzddgcqHFODVCLZPN5327-27-42 21:20:0016.7[facility] BjqlbicYEDUMDEOTK5870-55-97 21:20:007.8[facility] JzbsjpaQFZKCEAXQN1272-53-40 21:20:52351.0[facility] QhxafofJVAWHWDFZV9739-81-94 21:20:007.4[facility] LZFSTVCGKU2949-22-20 21:20:008.7[facility] HjlasluJQDWHOSLJM8907-14-62 21:20:00 15.6[facility] YcayajcGQFETTYJLM9105-96-38 21:20:001.1[facility]annHEMATOLOGY 2011-02-19 21:20:000.6[facility] QhvctnjYCGUAAZCSI8234-72-21 21:20:005.3[facility] HmetiqrUZOGZJHRQO2276-83-50 21:20:005.1[facility] EfghbceRVYMPBLXDF0756-05-23 21:20:000.6[facility] WrtrorkCPAGDLEKDH8452-52-67 21:20:0069.8[facility] ELMAUYSTHZ8954-63-04 21:20:000.4[facility] TzpounvNJSRCHOUIN9812-30-08 21:20:000.0 [facility] GoclsumZZIORORBY8807-51-74 21:00:001.1[facility]annCHEMISTRY 2011-02-19 17:32:25529.0[facility] DgjhhktBTOUAPIVR4665-46-92 17:32:000.6[facility] JkrcpfjJHQKWHQDM9659-61-78 17:32:001.08[facility] EusalojQGHVOBRFQ7538-90-68 17:32:50315.0[facility] UkvifnaBJCHUEIEP3615-37-47 17:32:0029.0[facility] IKXRPZGNG4092-66-89 17:32:003.3[facility] TdbeqznALGSAZAWS7514-10-50 17:32:56231.0 [facility] EdosvytQEARZIMDH6145-89-54 17:32:0022.0[facility]annCHEMISTRY 2011-02-19 17:32:00-4.0[facility] XfgsklxFOLCRAEHL9990-64-29 17:32:00 Test Item Value Reference Range Interpretation Comments POC A pH (test code = POC A pH) 7.33 1 7.35-7.45 L [facility] DmytxnvICTAZVRQV2587-53-26 17:32:0041.0[facility]annCHEMISTRY 2011-02-19 17:32:0037.0[facility] UjitgstGMANEXXSI6405-63-64 17:32:06132.0[facility] HermannBODY JBFPKP7303-53-93 16:00:0039.0[facility]annBODY LIYBIS1822-87-29 16:00:0070.0[facility]annBODY MFSWXM3649-26-31 16:00:001.0[facility] BODY WOMAMX2598-09-06 16:00:00Light Red *ABN*(02/19/2011 11:00:00) ??[facility]annBODY HFGSUN8816-77-74 16:00:00Slight *ABN*(02/19/2011 11:00:00) ?? [facility]annB[facility] BMLISX6342-21-82 16:00:00Colorless (02/19/2011 11:00:00) ?? [facility]annB[facility] UNUXEG0898-03-30 16:00:211871.0[facility]annB[facility] FLUIDS 2011-02-19 16:00:00xxxxxxx (02/19/2011 11:00:00) ??[facility]annCHEMISTRY 2011-02-19 15:35:36176.0[facility] RkbngijIEDVMPFOG1700-00-38 15:35:003.2[facility] KwpccsdHSPZFFZTF2803-34-63 15:35:001.1[facility] QxikxizDTOVYPJAA1768-26-82 15:35:000.7[facility] AoybqfjSRGGRKWTI6977-00-04 15:35:00 Test Item Value Reference Range Interpretation Comments POC A pH (test code = POC A pH) 7.35 1 7.35-7.45 L [facility] RnpzjtoXTFVJOPTS1153-56-56 15:35:0037.0[facility]annCHEMISTRY 2011-02-19 15:35:00-3.0[facility] OjmwjeaDPDYTDWDQ2489-30-01 15:35:0041.0[facility] SvfbbwkSYQIXRLYH5406-95-89 15:35:57871.0[facility] LczpicbLNKDTNQVB8606-69-05 15:35:0023.0[facility] OkbnoxbDQPTMCHON3776-15-06 15:35:86108.0[facility] NAWZSCVVW2822-92-03 15:35:99484.0[facility] SmvhvutMYIHUFZUO9555-91-98 15:35:00 29.0[facility]BL[facility] ZJWSFWY3039-10-89 15:33:00Negative (02/19/2011 10:33:00) ??[facility] XbtjknxSTIIJXXDO5913-30-51 14:06:003.7[facility] OHTOENVFH9966-57-73 14:06:001.1[facility] SoukewvGEZASZCCE9374-26-07 14:06:91171.0 [facility] JrfdzobCITZVAFIG9993-60-47 14:06:001.0[facility]annCHEMISTRY 2011-02-19 14:06:01515.0[facility] EfvxyslFONEZQUSM0110-44-77 14:06:00 Test Item Value Reference Range Interpretation Comments POC A pH (test code = POC A pH) 7.43 1 7.35-7.45 N [facility] UavdqanNLJXSMLAW3713-46-31 14:06:43562.0[facility]annCHEMISTRY 2011-02-19 14:06:00-1.0[facility] OviipggMBFQYDCCN0225-35-52 14:06:0023.0[facility] XmiwfrbLLBHJOYZO1082-84-79 14:06:84481.0[facility] JmqajajMEEAIVZKP6774-32-64 14:06:0034.0[facility] EqhdoedHDHPXVVUT5381-79-81 14:06:0037.0[facility] NITQRSIXA9323-22-13 14:06:0034.0[facility] ZjlhncvITWLIEVCE6538-98-49 11:00:0012.0 [facility] RfehhowJVCQZMSUL9573-86-42 11:00:80846.0[facility]annCHEMISTRY 2011-02-19 11:00:0012.0[facility] BceanxfKQKHOHERM3192-31-17 11:00:000.6[facility] VpmzlbaGWFHJDHXF8314-74-25 11:00:0024.0[facility] KvkcbxpYZSHLOEBP4343-19-10 11:00:007.9[facility] VjhlmpdDGKDUVRYX1169-57-59 11:00:004.0[facility] IYJREJVIU4098-66-23 11:00:57661.0[facility] KlqruppQQNMHNXRK4758-88-65 11:00:00 99.0[facility] TgfvrmgRIZMVVNJAT3484-70-89 11:00:002.4[facility]annHEMATOLOGY 2011-02-19 11:00:000.7[facility] MvwfzysWAUBTIXJNA3882-48-80 11:00:000.0[facility] RiorgjpYREOLDGGXD5150-36-23 11:00:000.6[facility] FmefovoITIHKJELPG6529-54-52 11:00:002.4[facility] AdvwoxtHGROOZDEZG8573-16-50 11:00:0010.9[facility] WILWYLEGIN7054-69-41 11:00:000.8[facility] BvrqwqyDPOTJDBHZZ2904-75-50 11:00:009.4 [facility] HkjdxzpRKCFUFGQEH9452-26-11 11:00:0039.3[facility]annHEMATOLOGY 2011-02-19 11:00:0039.6[facility] MfrwaxiDEYTZOVVCP3064-69-93 11:00:008.2[facility] YghbureHGORCXBRAC7442-32-95 11:00:40123.0[facility] EmhpclhQGUJECJTMM9084-99-33 11:00:00 Test Item Value Reference Range Interpretation Comments MCH (test code = MCH) 32.9 pg 27.0-31.0 H [facility] DprdapxNKPGNFDKIX2356-24-67 11:00:0094.8[facility]annHEMATOLOGY 2011-02-19 11:00:0034.7[facility] QwowiqrYWQONVLJFB2314-78-96 11:00:0016.4[facility] XnkpnzbAMCCHWTAZK9857-97-03 11:00:0010.7[facility] GtijbvbZEWSRXTTVM8407-68-89 11:00:003.26[facility] MpacxqtPEOIGYSKLG7915-91-38 11:00:0030.9[facility] WAOVIKHGCY2316-19-78 11:00:006.2[facility] SylwjewACOYLTZDRJ3960-73-48 11:00:00 Test Item Value Reference Range Interpretation Comments INR (test code = INR) 1.0 1 0.85-1.17 N [facility] LesojqkKJXXQXEYZU5521-30-45 11:00:00 Test Item Value Reference Range Interpretation Comments PT (test code = PT) 13.2 s 12.0-14.7 N [facility] BtuxtzbSPMERTWWLW7276-68-84 11:00:00 Test Item Value Reference Range Interpretation Comments PTT (test code = PTT) 30.3 s 22.9-35.8 N [facility] WZKZYJC4551-75-30 10:22:63926.0[facility] BEDSIDE GLUCOSE FXNUJEI8019-46-84 02:28:53158.0[facility]annBED[facility]IDE GLU[facility]SE XNQGZUT8999-78-29 00:46:93764.0[facility] BzyesigJASEAQCTED4719-34-27 08:39:0094.3 [facility] FriyhkaEHFQWFQYQO5545-37-95 08:39:0033.1[facility]annHEMATOLOGY 2011-02-18 08:39:0016.6[facility] XitswoeIJDJEANVZY1096-22-79 08:39:00 Test Item Value Reference Range Interpretation Comments MCH (test code = MCH) 32.8 pg 27.0-31.0 H [facility] TzjhqtdDSJYGOYQVI0334-91-63 08:39:0034.7[facility]annHEMATOLOGY 2011-02-18 08:39:007.9[facility] LfecfsiJHIMEIUTGF9605-47-81 08:39:48401.0[facility] QtnsfyfUCRYNWULIY4285-30-77 08:39:006.4[facility] WuuvvoyYGYUVSDWAO9467-92-41 08:39:003.51[facility] VlrvemjFDIUKKRDIQ3863-41-36 08:39:0011.5[facility] IAQMNVFVRU2400-53-59 07:48:008.1[facility] SdmweuiOWUUINBMQY7676-26-12 07:48:00 Test Item Value Reference Range Interpretation Comments MCH (test code = MCH) 32.7 pg 27.0-31.0 H [facility] DjwryvsHBJLVLHKEZ7427-54-28 07:48:0095.1[facility]annHEMATOLOGY 2011-02-15 07:48:0034.3[facility] VwhqtbnOSHYPPAPCY3887-31-07 07:48:21177.0 [facility] JxmvcyjNDMFUUIXZN4349-97-51 07:48:0016.5[facility]annHEMATOLOGY 2011-02-15 07:48:0012.9[facility] IspdzaaHCGDSDUQHF5910-54-48 07:48:0034.1[facility] QzzlaarMVNQFSBUQJ4358-72-04 07:48:0011.7[facility] RmyiaotEPHEAIUCDI0886-85-11 07:48:003.58[facility] JpectjaDTDPKKZFGQ2399-97-94 07:48:000.1[facility] UMTQLKNDFD0087-11-61 07:48:000.4[facility] GazevmnLNCEQSQDHU3944-25-11 07:48:000.6 [facility] XnbwfhbSXPQEPLZXE9716-49-07 07:48:004.8[facility]annHEMATOLOGY 2011-02-15 07:48:0026.8[facility] MpghxbxXXVZCTFPQY6836-48-92 07:48:003.5[facility] NsbkjwmKFBKMRSWCB9801-67-87 07:48:008.3[facility] KhedtssBQUGSHBTKD0723-73-83 07:48:000.8[facility] XqlndoyNPKOFNRRBO3771-49-36 07:48:003.0[facility] GJTVKZLSJC8629-03-45 07:48:0064.6[facility] IvpwygrNQTTZOTYU4776-56-80 09:47:003.1 [facility] YxrebrdPRRUCIUQL6071-53-33 09:47:002.7[facility]annCHEMISTRY 2011-02-13 09:47:005.8[facility] UhupiefWRXXBEYUE4881-23-67 09:47:00 Test Item Value Reference Range Interpretation Comments B/C Ratio (test code = B/C Ratio) 43.0 1 6-25 H [facility] NtvindzPRMXQCCEZ0344-73-31 09:47:00 Test Item Value Reference Range Interpretation Comments A/G Ratio (test code = A/G Ratio) 0.9 1 0.7-1.6 N [facility] GmixlchCKDYBHLST2310-75-87 09:47:0052.0[facility]annCHEMISTRY 2011-02-13 09:47:74151.0[facility] MvcqksdLCMDXTUMC4368-68-21 09:47:00>60.0 [facility] XoqnagxWMNLNKDAC4238-69-28 09:47:0016.9[facility]annCHEMISTRY 2011-02-13 09:47:008.5[facility] LdmwxwsNPACZUKNY2507-44-09 09:47:000.6[facility] NclzoipXVGHWSGAM1213-01-32 09:47:0049.0[facility] AwnpzqtWJBZXIFIV9070-77-94 09:47:0097.0[facility] EevckdpRZLUVLFWJ0808-58-53 09:47:004.9[facility] CYSBQGUOD2984-59-16 09:47:000.4[facility] TxcxudvHVEWIEWHZ1218-81-45 09:47:30131.0 [facility] OpqwrkuUAQFASXMH6953-65-56 09:47:84324.0[facility]annCHEMISTRY 2011-02-13 09:47:0017.0[facility] QmxfqujTYVSAZGUW7285-73-84 09:47:0025.0[facility] UkwlbyrOGWFFRATK4287-18-92 10:09:0018.6[facility] EpkibfpIQMGEHNPJ5936-34-19 10:09:008.3[facility] UcpsbmrHMXPSAXMZ3524-62-44 10:09:0063.0[facility] DWMFHCYUN4436-44-18 10:09:0019.0[facility] MtqbqwwBBKEJJOYK9424-68-04 10:09:000.7 [facility] MijjraqJXMBKYXQP1719-50-00 10:09:40490.0[facility]annCHEMISTRY 2011-02-12 10:09:0097.0[facility] BgiymbqCRKWIUHII3398-43-72 10:09:003.6[facility] UerulazDDMZAKNOX8457-66-89 10:09:0023.0[facility] QrtfrjuCRQEJGYZVQ8634-06-04 10:09:001.0[facility] TmqimnfWIHARIOCOE5726-68-57 10:09:000.1[facility] GCQMUECGZW1497-46-64 10:09:000.2[facility] RsmcdiwFKABCNVQTJ0372-41-99 10:09:004.9 [facility] OqszodjSPRJEQPAUX2054-88-55 10:09:000.7[facility]annHEMATOLOGY 2011-02-12 10:09:0012.2[facility] EilqntoQFDGJPGEKV4143-37-60 10:09:005.5[facility] HxlkazbQMDHIRTNAH1071-78-00 10:09:001.1[facility] UvlrzzkSDLRIOCFTH0992-12-83 10:09:0066.2[facility] GypqllwYJYVYFQKWJ8761-79-21 10:09:0026.5[facility] RIPSSSCVG7114-79-68 19:00:001.8[facility] YwahrqxLVVEPHJML7433-84-37 19:00:0057.0 [facility] KwbtupoUCDWBTPVE2071-43-43 19:00:006.8[facility]annCHEMISTRY 2011-02-11 19:00:003.2[facility] IjezirzQXCMHVXCS9963-41-95 19:00:003.6[facility] SlpqkciIVXUEYEEN6194-85-54 19:00:00 Test Item Value Reference Range Interpretation Comments A/G Ratio (test code = A/G Ratio) 0.9 1 0.7-1.6 N [facility] VpfjvzpQXRHQFQMR1972-27-28 19:00:0059.0[facility] HermannCHEMISTRY 2011-02-11 19:00:58778.0[facility] HujieuoOEAWISBHH1286-67-62 19:00:000.7[facility] NkglwmoZCBIQPCMF7463-28-68 19:00:00 Test Item Value Reference Range Interpretation Comments B/C Ratio (test code = B/C Ratio) 45.0 1 6-25 H [facility] ZhahvmhXVVLGYFIXJ0957-31-06 19:00:001+ *ABN*(02/11/2011 14:00:00) ?? [facility] HermannSTOOL WKKOX1128-36-33 05:59:00None Seen 4(02/11/2011 00:59:00) ??[facility] RxbzjkrYVNEMDVBH0013-16-85 19:39:00 Test Item Value Reference Range Interpretation Comments eGFR (test code = eGFR) 48.0 1 [facility] SehgbsbZOESIHMCK0343-81-05 19:39:003.0[facility] HermannCHEMISTRY 2011-02-10 19:39:00 Test Item Value Reference Range Interpretation Comments A/G Ratio (test code = A/G Ratio) 1.0 1 0.7-1.6 N [facility] HpwhukiKPSUDYMPE5189-22-11 19:39:00 Test Item Value Reference Range Interpretation Comments B/C Ratio (test code = B/C Ratio) 23.0 1 6-25 N [facility] YsubzkhPXTQAMDAZ9161-48-97 19:39:0031.0[facility] HermannCHEMISTRY 2011-02-10 19:39:003.1[facility] PszviumWQKSWNYPD3657-21-99 19:39:0064.0[facility] SznylssAJWJEZKIB6890-13-07 19:39:006.1[facility] BqzqtlmDJCEGGHTM7975-08-37 19:39:000.5[facility] PdpuiuiBPEFWVUEV2485-76-38 19:39:56416.0[facility] FUYSABOERP7901-10-99 10:19:00Slight (02/08/2011 05:19:00) ??[facility] NGQQZMPRFH4314-58-04 10:19:00Slight (02/08/2011 05:19:00) ??[facility] AWUCINIRFF3389-92-75 10:19:001+ *ABN*(02/08/2011 05:19:00) ??[facility] KTWDJZQHNH9145-13-90 10:19:00Normal (02/08/2011 05:19:00) ??[facility] AVIHWKZJFC3029-98-30 08:33:000.0[facility] HermannBLOOD BANK NPUYUZT7589-20-65 19:12:00Negative (02/05/2011 14:12:00) ??[facility] ZgloktlZDOZVHJYE0458-16-94 02:09:0064.0[facility] RgtaohoNPGDSDWMQ4497-83-81 02:09:000.03[facility] RWJVMMGWD4870-09-05 18:20:0071.0[facility] PwhgardOYENNXAIB8557-67-75 18:20:000.05 [facility] GrmsmglZAGGLQACIB6603-89-81 22:21:00??[facility] HermannURINALYSIS 2011-02-02 22:21:00Negative (02/02/2011 17:21:00) ??[facility] HermannURINALYSIS 2011-02-02 22:21:00<1.0[facility] XxysqzbUMHRQMKJVI0142-02-48 22:21:00 Occasional /HPF *NA*(02/02/2011 17:21:00) ??[facility] ElmwahgFLNKMYOHZN0330-15-95 22:21:00Negative (02/02/2011 17:21:00) [facility]ov[facility]qrZGSHNIAOOW1525-26-59 22:21:00Negative mg/dL *NA*(02/02/2011 17:21:00) [facility] 2011-02-02 22:21:00Negative *NA*(02/02/2011 17:21:00) [facility] VSFAWJDWXD7512-32-45 22:21:00Negative (02/02/2011 17:21:00) ??[facility] FRBDKJWTGK3735-46-23 22:21:00Negative mg/dL (02/02/2011 17:21:00) ??[facility] CenterLivqeadYDFMWZCFGZ0917-84-19 22:21:00Negative mg/dL *NA*(02/02/2011 17:21:00) ?? [facility] CenterFpyaiglONPHUQPSVF8833-17-94 22:21:00Light Yellow *NA*(02/02/2011 17:21:00) ??[facility] GlqyetxOVZEFYOAHF2210-39-42 22:21:00Clear (02/02/2011 17:21:00) ??[facility] AkwkkdkTPPDVKQYRR9428-88-72 22:21:00 Test Item Value Reference Range Interpretation Comments UA Spec Grav (test code = UA Spec 1.004 1 N Grav) [facility] WkralbvYSJPBUZPDC3907-96-96 22:21:00 Test Item Value Reference Range Interpretation Comments UA pH (test code = UA pH) 7.0 1 5.0-8.0 N [facility] GckqlnxPURCJTFCM5425-70-19 10:30:000.98[facility] HermannCHEMISTRY 2011-02-01 10:30:000.711[facility] NbltfoxIVXVWLWWDM5656-99-83 10:30:0019.4 [facility] HermannBEDSIDE GLUCOSE KJOZFFS1326-20-19 10:46:15627.0[facility] UTRUQMHZW6074-97-78 08:36:002.9[facility] YwtsxgmCSISXIBHD6964-43-57 08:36:0024.0 [facility] DfdokedGBXTJPEOQ1363-17-53 08:36:007.7[facility] HermannCHEMISTRY 2011-01-31 08:36:14051.0[facility] SzdpozyKPXIRCSFF6806-58-92 08:36:51404.0 [facility] EalohxmCWEEQMYSJ0414-81-74 08:36:003.9[facility] HermannCHEMISTRY 2011-01-31 08:36:0017.0[facility] JxkyduvFPCZUOPHY3507-60-88 08:36:000.7[facility] PugsnkjBFQSCUOAX8121-93-16 08:36:71015.0[facility] GnhlsvoOURMSGHRU4344-54-87 08:36:0017.9[facility] HmwpxepWAHHWRVUB5659-17-86 08:36:001.9[facility] MQWPYURTR0661-87-94 08:36:001.13[facility] LoflvkdRKPZPBBOT4440-19-69 08:36:001.09 [facility] CqkebatFQKLHZPXY2856-21-59 08:36:004.52[facility] HermannCHEMISTRY 2011-01-31 08:36:004.36[facility] AamcdiaDGVBCWBQGL1786-49-89 08:36:00Slight *ABN*(01/31/2011 03:36:00) ??[facility] TfngmlwRWGDJGTJYW6452-64-23 08:36:001.4 [facility] NadziomKJXUNQSOFJ0885-27-13 08:36:003.0[facility] HermannHEMATOLOGY 2011-01-31 08:36:0018.6[facility] OumyxjmABMCTYQFLX5143-43-84 08:36:001.6[facility] JlonbvzNSSXBRRJOQ4668-53-89 08:36:002.0[facility] LluvhvoDASMWJEJLQ6687-78-98 08:36:007.0[facility] DujlavcZLSBTCBYPS4564-96-68 08:36:006.0[facility] VEWRERXAUP5795-63-06 08:36:0079.0[facility] SjjcebbIMQUPFWKGY3385-13-07 08:36:00 2.0[facility] IkivzrrGBJZKAPBDN4245-39-68 08:36:00Slight (01/31/2011 03:36:00) ?? [facility] KwywnwvTPLOSVXZHR5226-87-19 08:36:00Slight (01/31/2011 03:36:00) ?? [facility] ZpjwximIZOGOQNWEJ7306-14-69 08:36:00Present *ABN*(01/31/2011 03:36:00) ??[facility] KyqkdgoKOMWLHULIQ7137-95-56 08:36:000.0[facility] HermannHEMATOLOGY 2011-01-31 08:36:001.0[facility] UlaycgvFWULDOTDRV2807-17-22 08:36:0015.3[facility] WuqoxqqCADMDMRXOT5787-71-55 08:36:0010.1[facility] QhivkuzRHZMZCEDMU1707-13-89 08:36:54843.0[facility] KevwaenUGVZUQABCB9870-50-56 08:36:0037.3[facility] FLYTFDQHGV8178-28-17 08:36:0032.7[facility] QiqbbjeFQMRNJWHGD1663-06-87 08:36:00 94.8[facility] PmtetnkBINBQJZYMP1305-26-02 08:36:00 Test Item Value Reference Range Interpretation Comments MCH (test code = MCH) 31.0 pg 27.0-31.0 N [facility] HmoxrbsYQFHWFAZXQ1189-19-45 08:36:0023.0[facility] HermannHEMATOLOGY 2011-01-31 08:36:003.93[facility] TdybmfmQFLDQPPAAB8777-63-98 08:36:0012.2[facility]annBEDSIDE GLUCOSE HEFMEIS8356-68-35 05:49:47034.0[facility] GLU[facility]SE KQHMDZO0540-06-25 01:36:39443.0[facility] OjbxtxzCUXWBDIMX3425-89-53 15:02:002.7[facility] NxamuuiPIWAGCPDD5499-32-34 15:02:003.7[facility] EVHZNBPCN9747-13-96 15:02:004.2[facility] BbafcpaLONGGICDQ6857-90-67 15:02:004.24 [facility] NfgslsvIHHCGMIAB8883-82-58 15:02:001.05[facility]annCHEMISTRY 2011-01-29 15:02:001.06[facility] IeqqhfkQVAELGOUP4163-89-71 15:02:002.4[facility] XlcmcyaENAVDOMND4250-28-67 15:02:0015.0[facility] BetagpyLJPDRQSRC9049-30-22 15:02:0023.0[facility] RvsflyeXUCFBDQMY1415-21-15 15:02:000.8[facility] PEFLDHTUT8090-82-39 15:02:93480.0[facility] OpbviflJKFLYDPLV0648-06-16 15:02:004.0 [facility] YovqbnnAXKMWKXOO5755-33-22 15:02:70407.0[facility]annCHEMISTRY 2011-01-29 15:02:84995.0[facility] JhppvcrMOIBPENXA8446-01-87 15:02:0024.0[facility] HimblovWFRNPHJTE6056-69-81 15:02:007.8[facility] FoltipcPCMVMNKMWE9138-07-32 15:02:00Slight *ABN*(01/29/2011 10:02:00) ??[facility] ThjdqcdOWENCPXTQA3055-97-65 15:02:00Slight (01/29/2011 10:02:00) ??[facility] DffafpvABIZSRKLCR1080-16-82 15:02:000.0[facility] RbypszpUWNQQHNRUZ1803-48-81 15:02:001.0[facility] KVVCAKOTMV1629-87-96 15:02:0081.0[facility] IdplbqbHQHDMMLFNC1670-63-42 15:02:00 9.0[facility] QqscaioCSPZZXXGIL0865-19-43 15:02:005.0[facility]annHEMATOLOGY 2011-01-29 15:02:001.0[facility] WpizbdyHYYBPKWYMT4420-13-09 15:02:002.0[facility] EsajndxRHFFLDHENN2211-12-41 15:02:002.0[facility] WrprgrdZSZICVRGAR0118-16-66 15:02:001.0[facility] SlsmkfnLZGIXNGBIB1530-88-04 15:02:001.8[facility] ESUVVLPTWL7115-90-39 15:02:0016.3[facility] OujwbpbXKNHXYRHLE6754-44-24 15:02:00 9.4[facility] GyczduaIRYCSKVPEG7480-75-08 15:02:0033.9[facility]annHEMATOLOGY 2011-01-29 15:02:0094.0[facility] LpcbnxaUIXIPZWKXZ3182-69-46 15:02:00 Test Item Value Reference Range Interpretation Comments MCH (test code = MCH) 31.5 pg 27.0-31.0 H [facility] AmgixqlIEGYYLGIUT7438-97-07 15:02:0033.6[facility]annHEMATOLOGY 2011-01-29 15:02:0016.1[facility] VsudecuBIAVQLLTBM9481-60-10 15:02:17028.0 [facility] DrundgiDQWPXXLCMM8169-31-29 15:02:0019.6[facility]annHEMATOLOGY 2011-01-29 15:02:0011.4[facility] HgaenhiBIHTGPYDBX6931-46-51 15:02:003.61[facility] TqebgtwFSWFMRGXS2621-47-43 06:30:0014.2[facility] HbxmrmvADKOQPBDI1233-85-95 06:30:76079.0[facility] LcyxqwvXCKYDOXLX9258-00-55 06:30:97013.0[facility] TSGKMIQMH9639-49-39 06:30:003.2[facility] DvhbzqcQVJHJSUVL1471-04-34 06:30:0025.0 [facility] HdqdyofETICBLLQE8355-04-60 06:30:007.5[facility]annCHEMISTRY 2011-01-28 06:30:0057.0[facility] LqmdajfVPWJIRZYE4934-08-77 06:30:0021.0[facility] VjqinxoNIDXWSEAD6432-76-13 06:30:000.7[facility] HkxcvwsXCMXPMVNJ4353-32-02 06:30:003.2[facility] AfahkkgFCKEQVPEX3511-76-62 06:30:002.2[facility] XCZSZRUBR6953-95-82 06:30:001.09[facility] OiwfalxZEDFVGBBE5183-99-77 06:30:001.06 [facility] SxommoiHMRNHGJJT4207-88-97 06:30:004.36[facility]annCHEMISTRY 2011-01-28 06:30:004.24[facility] CdhshnoXIUMNAYNDW5321-11-77 06:30:58419.0 [facility] YspyryvUKDXGXZKCO1734-03-10 06:30:0010.4[facility]annHEMATOLOGY 2011-01-28 06:30:00 Test Item Value Reference Range Interpretation Comments MCH (test code = MCH) 31.1 pg 27.0-31.0 H [facility] DwclrkaSWTNRCSOAW2393-88-73 06:30:0033.3[facility]annHEMATOLOGY 2011-01-28 06:30:0016.0[facility] IglwmifLKOSTWZZNH1509-92-86 06:30:0032.3[facility] FspatalYXEFYXRQTT2866-39-50 06:30:0093.5[facility] OvilqekIQKWMIJGDG2795-97-21 06:30:003.45[facility] RgsmkxpOUEMSMIZII8896-09-04 06:30:0010.7[facility] YREKSHLIUV8265-12-59 06:30:0020.1[facility] KdbalihZGZWJPTRMP0319-67-10 06:30:00 0.0[facility] PcqwpfpQFNWLIYVDK3668-32-63 06:30:004.1[facility]annHEMATOLOGY 2011-01-28 06:30:0018.0[facility] UbndhjiTVHPKMTGSK5971-90-15 06:30:000.0[facility] QpgoqntYNKMSCNVLC6841-33-74 06:30:006.6[facility] LjmrtwyXWMIPMTGVZ0359-77-75 06:30:000.0[facility] KbhlmysXHKGXVLCGY3655-27-51 06:30:000.0[facility] CJAOYNTDCD4693-92-82 06:30:000.8[facility] TncsbvgLEXXJUQRGC3448-01-02 06:30:001.3 [facility] KcofyrcFIWVWTTSJB5149-93-86 06:30:0089.3[facility]annCHEMISTRY 2011-01-27 09:07:03371.0[facility] MbyhzgpVCGLANLSZ0817-65-44 09:07:00 Test Item Value Reference Range Interpretation Comments POC A pH (test code = POC A pH) 7.56 1 7.35-7.45 H [facility] GfaymyiZJHCOCNYT1442-85-01 09:07:41904.0[facility]annCHEMISTRY 2011-01-27 09:07:0037.0[facility] BucaqxuUKWPPTYKX6754-11-10 09:07:004.0[facility] GalggsqHVJQAEAEF5564-63-74 09:07:45308.0[facility] DlsinqwKTLQQWUCX4571-10-85 09:07:0025.0[facility] ZntswqvTGOXXNTIB1901-00-01 09:07:0028.0[facility] NEQOHCBKF5028-56-90 05:14:38386.0[facility] TkjfqnmAPEBBTWQXA0399-76-51 05:14:00 Test Item Value Reference Range Interpretation Comments PTT (test code = PTT) 25.2 s 22.9-35.8 N [facility] HdahoedIMAMRPPZMS2982-47-44 05:14:00 Test Item Value Reference Range Interpretation Comments PT (test code = PT) 15.8 s 12.0-14.7 H [facility] YiictzyEKOMYQHQLW5685-69-62 05:14:00 Test Item Value Reference Range Interpretation Comments INR (test code = INR) 1.26 1 0.85-1.17 H [facility] JvkvzwrHYXMUHTJJM6741-89-77 05:14:000.0[facility]annHEMATOLOGY 2011-01-27 05:14:000.2[facility] NjzmhoiEFSBRUIIJW4230-40-47 05:14:000.0[facility] KicfgolOVGJFVOTMQ7162-73-52 05:14:000.0[facility] PrzokdmGRZXYMSDX9452-43-01 20:09:87601.0[facility] RgkcqcwXVORJWBMGN9336-71-04 20:09:000.0[facility] PVSHDBAFUI6515-98-63 20:09:000.0[facility] PqzexjqAVURLXWBHT0484-21-12 20:09:000.0 [facility] YzixfhfPIUZNGYPWN4610-40-32 20:09:000.1[facility]annHEMATOLOGY 2011-01-26 20:09:00 Test Item Value Reference Range Interpretation Comments PTT (test code = PTT) 29.8 s 22.9-35.8 N [facility] ZbokqmqNWCGDPZNTV7659-65-73 20:09:00 Test Item Value Reference Range Interpretation Comments PT (test code = PT) 15.4 s 12.0-14.7 H [facility] DpikkesHDDFMSLWUQ1171-95-38 20:09:00 Test Item Value Reference Range Interpretation Comments INR (test code = INR) 1.22 1 0.85-1.17 H [facility] FnjkkmiJOLUHJFCM5879-47-94 18:43:18389.0[facility]annCHEMISTRY 2011-01-26 18:43:000.8[facility] KorqbpoVJESROSRK2738-84-65 18:43:001.17[facility] PwiduvlRNXITYVCL8829-56-93 18:43:003.6[facility] DnvyqwhBRLCNZYAY5176-08-41 18:43:12865.0[facility] VtxabcnGXIQFYDPX5737-78-73 18:43:0080.0[facility] AYWICCKUB8615-91-28 18:43:0040.0[facility] WclqgggFJKIEDPJL2959-36-93 18:43:0037.0 [facility] VfdxrxoNYTNOZOWZ7668-29-11 18:43:00 Test Item Value Reference Range Interpretation Comments POC A pH (test code = POC A pH) 7.4 1 7.35-7.45 N [facility] HazjlvsDJJHKDJNS1623-50-13 18:43:0034.0[facility]annCHEMISTRY 2011-01-26 18:43:000.0[facility] SzvdjkaUYDYSVTAT4941-63-60 18:43:0096.0[facility] EvwmlniWUNNKVNVK6078-47-66 18:43:0025.0[facility] OmnwlzmAWRGRPQLB8201-49-72 17:57:0096.0[facility] InsqzpxIEMIOSWSY7459-06-88 17:57:003.6[facility] WNYSPWGHO0231-03-49 17:57:000.8[facility] FqbuftlVTLVYJPSX2787-78-04 17:57:22480.0 [facility] BpfevskVISYSRCOV5568-64-66 17:57:0037.0[facility]annCHEMISTRY 2011-01-26 17:57:0025.0[facility] OwndsccCHKJMVPKD8802-48-35 17:57:0079.0[facility] CvddxgePNTBYKUUE2732-93-99 17:57:0038.0[facility] JyysrxmKGYSQITGY0766-35-36 17:57:00 Test Item Value Reference Range Interpretation Comments POC A pH (test code = POC A pH) 7.42 1 7.35-7.45 N [facility] QnuwiiaQAXFTAZKJ2283-43-13 17:57:000.0[facility]annCHEMISTRY 2011-01-26 17:57:001.22[facility] BqmhwkePRZPYPXAH9963-55-25 17:57:60760.0[facility] NrptddsLXJGTQEYC0184-95-99 17:57:0036.0[facility] QllxavoKJGCPFERO2863-34-85 17:01:0041.0[facility] OuolkwfHIRTDYMQG9561-53-70 17:01:07406.0[facility] CRGSQBXXE5816-04-85 17:01:001.05[facility] NkfnjknYJUXUIXEZ8481-62-37 17:01:003.6 [facility] MexhfjmWVVRHVZQL1552-58-67 17:01:000.8[facility]annCHEMISTRY 2011-01-26 17:01:96905.0[facility]annBLOOD BANK HFHFFKI2064-36-44 14:00:00 Negative (01/26/2011 09:00:00) ??[facility] DkuejnjEVTHTOHDXL0731-14-03 05:15:00 Test Item Value Reference Range Interpretation Comments PTT (test code = PTT) 28.2 s 22.9-35.8 N [facility]HbyfodnOCPALQNTNH7440-08-69 05:15:00 Test Item Value Reference Range Interpretation Comments INR (test code = INR) 1.24 1 0.85-1.17 H [facility] CenterTysonkcDLFPINQLSK0576-07-58 05:15:00 Test Item Value Reference Range Interpretation Comments PT (test code = PT) 15.6 s 12.0-14.7 H [facility] AmkoeghLJTDUTODP3385-58-93 12:56:00 Test Item Value Reference Range Interpretation Comments CK MB Index (test 0.4 1 See_Comment N [Automate d message] The code = CK MB Index) system w [facility] generated this result transmit porsche reference range : <=2.5. The reference range was not used to interpr et this result as alexia l/abnormal. [facility] YbfwjvpBLJBPGXXR1904-71-60 12:56:001.1[facility]annCHEMISTRY 2011-01-25 12:56:38172.0[facility] RbdsmtqGFCJYXKOG7302-55-31 12:56:00<0.01 [facility] UarvtbhMLHKHCHQT6883-21-89 12:56:98769.0[facility]annCHEMISTRY 2011-01-25 05:15:12604.0[facility] YcxptlpXOFFZWLEV1822-90-85 05:15:00<0.01 [facility] LuvzxsnFMCTWPVQS3910-55-00 05:15:00 Test Item Value Reference Range Interpretation Comments CK MB Index (test 0.7 1 See_Comment N [Automate d message] The code = CK MB Index) system w [employer] generated this result transmit porsche reference range : <=2.5. The reference range was not used to interpr et this result as alexia l/abnormal. [facility] GfinjucEDNFEARZX9673-00-15 05:15:001.5[facility]annCHEMISTRY 2011-01-25 00:16:002.4[facility] DmzsubhKDNAJDBMBN0671-12-80 00:16:00Slight *ABN*(01/24/2011 19:16:00) ??[facility] LfrsbjeTDYDXKFAMX6926-95-04 00:16:002.0 [facility] MymhliqWABMCSLUYP9116-99-94 00:16:00Normal (01/24/2011 19:16:00) ?? [facility] CenterRtmnsccFYJBPXNST2150-18-45 20:01:00<0.01[facility]annCHEMISTRY 2011-01-24 20:01:0060.0[facility] LnsdgoqKPPLOHLHO6255-58-94 20:01:0034.0[facility] EIRRRQI2170-24-11 08:15:00Negative (01/24/2011 03:15:00) ?? [facility] Wickr EMESMRF0810-44-52 08:15:00Product available (01/24/2011 03:15:00) ??[facility] ZWZYCBX9473-66-80 08:15:00 Product available (01/24/2011 03:15:00) ??[facility] BgusotyYOCCEPITY6499-00-26 16:30:00 Test Item Value Reference Range Interpretation Comments CK MB Index (test 1.2 1 See_Comment N [Automate d message] The code = CK MB Index) system w [employer] generated this result transmit porsche reference range : <=2.5. The reference range was not used to interpr et this result as alexia l/abnormal. [facility] BvawbzgYPVBMOLBM3141-78-86 16:30:001.2[facility]annCHEMISTRY 2011-01-23 16:30:008.7[facility] UkybheaCHITYNWJN3739-30-63 16:30:00<0.02 [facility] MqcdwgbLJFZVXNSTE1984-99-83 10:29:00??[facility] HermannURINALYSIS 2011-01-23 10:29:00Occasional /LPF *NA*(01/23/2011 05:29:00) ??[facility] WNITSWHVYO8256-48-85 10:29:00<1.0[facility] NeufyqwFGMKRYQCMH0858-69-74 10:29:00Few /LPF *NA*(01/23/2011 05:29:00) [facility] 2011-01-23 10:29:00<1.0[facility] LlhvwxjXHPIGNRJBE9138-95-86 10:29:00Negative mg/dL (01/23/2011 05:29:00) ??[facility] CenterBmflbssQYIDOVNKME0443-22-44 10:29:00 Negative (01/23/2011 05:29:00) ??[facility] CenterFwqqwepBFLFEVYSDQ3299-74-92 10:29:00 Negative (01/23/2011 05:29:00) [facility] CenterAwixmbpKDQSWGPCGW5058-03-00 10:29:00 Negative *NA*(01/23/2011 05:29:00) ??[facility] CenterChyfqxcNMSOXCBFZS2976-82-88 10:29:76062 mg/dL *ABN*(01/23/2011 05:29:00) ??[facility] CenterannUR[facility]YSIS 2011-01-23 10:29:00Negative (01/23/2011 05:29:00) ??[facility] 2011-01-23 10:29:00 Test Item Value Reference Range Interpretation Comments UA pH (test code = UA pH) 5.0 1 5.0-8.0 N [facility] XosycsqRAILAIVMAO5440-22-33 10:29:00 Test Item Value Reference Range Interpretation Comments UA Spec Grav (test code = UA Spec 1.01 1 N Grav) [facility] CenterUsiaerxNTBLLFBNFG0003-03-21 10:29:00Clear (01/23/2011 05:29:00) ?? [facility] CenterXejbacvMUIQBNSAKH9030-75-72 10:29:00Yellow *NA*(01/23/2011 05:29:00) ?? [facility] CenterBACTERIAL - CCVCIQPO0299-13-67 10:00:00Negative 1(01/23/2011 05:00:00) ??[facility]
[2020-08-17 18:36] LABS: Absolute Lymphocytes (CBC) 0.7 K/uL (0.7-4.9); Basophils % 0.1 % (0-1.3); Hematocrit 45.4 % (36.0-45.0); Lymphocytes % 2.5 % (15.3-44.8); RBC Red Blood Cell Count 5.54 M/uL (3.86-4.86)
[2020-08-17 18:50] LABS: Potassium 4.4 mmol/L (3.5-5.1)
[2020-08-17] MEDS ORDERED: NA CHLORIDE 0.9% 500 ML ONE ×2 (19:38→20:50)
[2020-08-17] MEDS ORDERED: INSULIN -REGULAR HUMAN 50 UNIT/0.5 ML ML ONE (19:38)
[2020-08-17 19:58] LABS: Urine Blood NEGATIVE (NEG); Urine Glucose 2+ (NEG); Urine Protein NEGATIVE (NEG)
[2020-08-17 20:02] LABS: Calcium Oxalate Crystals- Ur PRESENT (NONE SEEN); Urine Bacteria NONE SEEN /HPF (<20); Urine RBC NONE SEEN /HPF (NONE SEEN)
--- NOTE | 2020-08-17 20:06 | RAD REPORT ---
EXAM DESCRIPTION: CT - Abdomen Pelvis Wo Contrast - 08/17/2020 7:52 pm CLINICAL HISTORY: Abdominal pain. bilateral lower abdominal hematomas;GI bleed COMPARISON: Abdomen Pelvis W Contrast dated 03/16/2020 TECHNIQUE: CT imaging of the abdomen and pelvis was performed without contrast. Solid organ, bowel a nd vascular assessment is limited due to lack of IV and oral contrast. All CT scans are performed using dose optimization technique as appropriate and may include automated exposure control or mA/KV adjustment according to patient size. FINDINGS: The lower lung nielsen are clear.Cholecystectomy. The liver, spleen, adrenal glands and kidneys are within normal limits for a limited non-contrast exa mination.Subtle edema involving the pancreas. No bowel obstruction, free air, free fluid or abscess. Small fat containing ventral hernia. Moderate retention stool is seen in the sigmoid colon with slight inflammation the surrounding fat. The osseous structures are within normal limits. IMPRESSION: Subtle edema involving the pancreas. Suggest correlation with amylase and lipase levels to evaluate for possible pancreatitis. Mild stercoral colitis of the rectosigmoid colon. A limited non-contrast examination was performed as detailed.
[2020-08-17 20:44] LABS: Albumin 3.2 g/dL (3.4-5.0); Bilirubin Direct 0.5 mg/dL (0-0.2); Bilirubin Total 0.9 mg/dL (0.2-1.0)
[2020-08-17] MEDS ORDERED: METRONIDAZOLE 500mg IVPB 500 MG/100 ML BAG IV ONE (20:50)
[2020-08-17] MEDS ORDERED: NA CHLORIDE 0.9% 250 ML ONE (20:50)
[2020-08-17] MEDS ORDERED: VANCOMYCIN 1 GM/VIAL ONE (20:50)
[2020-08-17] MEDS ORDERED: PANTOPRAZOLE 40 MG INJ ONE (21:19)
[2020-08-17] MEDS ORDERED: NA CHLORIDE 0.9% 1,000 ML ONE (21:19)
[2020-08-17 22:02] LABS: Anisocytosis 3+; Blood Morphology Comment NOTED (NOT SEEN); Platelet Estimate ADEQ; Poikilocytosis 2+; Polychromasia 1+
[2020-08-17 22:03] LABS: Ovalocytes 1+; Teardrop Cell 1+
--- NOTE | 2020-08-17 23:53 | ER ---
Nurse's Notes [facility] Name: Franci Lange Age: 75 yrs Sex: Female : 1945 Arrival Date: 08/17/2020 Time: 17:41 Bed 13 Private MD: Manfred Pearson R Diagnosis: Lower GI Bleed ;Sterocal Colitis;Pancreatitis Presentation: 08/17 17:45 Chief complaint: EMS states: Called in for bloody stool, bright red today. BGL at 464, ca1 reports she was nauseous this morning and did not eat. No nausea at this time. C/O RLQ. Coronavirus screen: Client denies travel out of the [place] in the last 14 days. nausea, Client presents with at least one sign or symptom that may indicate coronavirus-19. Standard/surgical mask placed on the client. Provider contacted for isolation considerations. Ebola Screen: Patient negative for fever greater than or equal to 101.5 degrees Fahrenheit, and additional compatible Ebola Virus Disease symptoms Patient denies exposure to infectious person. Patient denies travel to an Ebola-affected area in the 21 days before illness onset. No symptoms or risks identified at this time. Initial Sepsis Screen: Does the patient meet any 2 criteria? No. Patient's initial sepsis screen is negative. Does the patient have a suspected source of infection? No. Patient's initial sepsis screen is negative. Risk Assessment: Do you want to hurt yourself or someone else? Patient reports no desire to harm self or others. Onset of symptoms was August 17, 2020. Transition of care: patient was received from another setting of care (long-term care facility), [facility]. 17:45 Method Of Arrival: EMS: [facility] ca1 17:45 Acuity: JAY 3 ca1 Historical: - Allergies: 17:48 cefepime; ca1 17:48 CEPHALOSPORINS; ca1 17:48 Ciprofloxacin; ca1 17:48 Cortisone; ca1 17:48 Cortizone-10; ca1 17:48 Erythromycin; ca1 17:48 IVIG; ca1 17:48 PENICILLINS; ca1 17:48 Phenobarbital; ca1 17:48 Tape; ca1 17:48 Aspirin; ca1 - PMHx: 17:48 Ankylosing Spondylitis; CHF; Anxiety; Depression; Diabetes - IDDM; High Cholesterol; ca1 Hypertension; Hypothyroidism; Myasthenia Gravis; Myocardial infarction; Osteoporosis; 22:00 Dementia; rr5 - PSHx: 17:48 brain shunt; meningioma; neck sx; spinal sx; Carpal Tunnel Repair; Cholecystectomy; ca1 - Immunization history:: Adult Immunizations not up to date, Flu vaccine is not up to date. - Social history:: Smoking status: Patient denies any tobacco usage or history of. Screenin:20 Abuse screen: Denies threats or abuse. Denies injuries from another. Nutritional rr5 screening: No deficits noted. Tuberculosis screening: No symptoms or risk factors identified. Fall Risk Secondary diagnosis (15 points) impaired mobility, IV access (20 points). Gait- Impaired (20 pts.). Total Badillo Fall Scale indicates High Risk Score (45 or more points). Fall prevention measures have been instituted. Side Rails Up X 2 Placed Close to Nursing Station Frequent Obs/Assessments Occuring As available patient and family educated on Fall Prevention Program and Strategies. Assessment: 19:30 General: Appears in no apparent distress. uncomfortable, Behavior is calm, cooperative, rr5 appropriate for age. Pain: Denies pain. Neuro: Level of Consciousness is awake, alert, obeys commands, Oriented to person, place, time. Cardiovascular: Capillary refill < 3 seconds Patient's skin is warm and dry. Respiratory: Airway is patent Respiratory effort is even, unlabored, Respiratory pattern is regular, symmetrical. GI: Abdomen is round Reports diarrhea, bloody stool. : No signs and/or symptoms were reported regarding the genitourinary system. EENT: No signs and/or symptoms were reported regarding the EENT system. Derm: Skin is intact, is healthy with good turgor, Skin temperature is warm. 19:30 Musculoskeletal: Capillary refill < 3 seconds. rr5 20:25 Reassessment: Patient appears in no apparent distress at this time. Patient is alert, rr5 oriented x 3, equal unlabored respirations, skin warm/dry/pink. refused for covid test. 20:30 Reassessment: BS 293 mg/dl, ED provider aware with order made and carried out. rr5 21:30 Reassessment: Patient appears in no apparent distress at this time. Patient is alert, rr5 oriented x 3, equal unlabored respirations, skin warm/dry/pink. charge nurse speak and explained to patient for the covid swab but patient opted not to do it. 22:15 Reassessment: at bedside convincing the patient to do covid swab. [facility] 23:13 Reassessment: patient having dementia reassess the orientation of the patient unable to rr5 answer some questions. (POA) agreed for the covid swab. 23:15 Reassessment: having the Power of assistant district attorney of the patient agreed to do the rr5 covid swab. ED provider, charge nurse, coal yard supervisor informed. covid swab done at bedside witness by coal yard supervisor, charge nurse and the POA. 23:30 Reassessment: wants to be transfer to [facility] provider informed. [facility] 08/18 00:40 Reassessment: Jorge Alberto ( [facility]) and jewish not available, jorge alberto galarza and [address] started to coordinate by world geography teacher, family member informed. 01:48 Reassessment: Patient appears in no apparent distress at this time. Patient is alert, rr5 oriented x 3, equal unlabored respirations, skin warm/dry/pink. awaiting for other facility acceptance. 02:14 Reassessment: report given to "Mariah" from [facility]. Crispin [phone]. [facility] 03:00 Reassessment: Patient appears in no apparent distress at this time. [facility] 04:[facility] Reassessment: Patient appears in no apparent distress at this time. report given to [address] ambulance awake, vital signs taken and recorded. Vital Signs: 08/17 17:45 BP 156 / 59; Pulse 66; Resp 16 S; Temp 97.6(O); Pulse Ox 100% on R/A; Pain 2/10; ca1 19:20 BP 146 / 90; Pulse 86; Resp 17; Temp 98.5; Pulse Ox 98% ; rr5 20:30 BP 141 / 85; Pulse 80; Resp 19; Pulse Ox 99% ; rr5 21:30 BP 149 / 95; Pulse 90; Resp 17; Pulse Ox 98% ; rr5 22:26 BP 133 / 89; Pulse 85; Resp 17; Pulse Ox 98% ; rr5 23:30 BP 146 / 89; Pulse 80; Resp 17; Pulse Ox 98% on R/A; rr5 08/18 00:48 BP 155 / 89; Pulse 87; Resp 16; Pulse Ox 96% ; rr5 01:48 BP 141 / 79; Pulse 80; Resp 19; Pulse Ox 95% ; rr5 03:00 BP 149 / 89; Pulse 80; Resp 17; Temp 97.5; Pulse Ox 97% on R/A; rr5 04:00 BP 135 / 70; Pulse 75; Resp 19; Pulse Ox 98% ; rr5 ED Course: 08/17 17:41 Patient arrived in ED. am2 17:42 Manfred Pearson MD is Private Physician. am2 17:47 Triage completed. ca1 17:48 Arm band placed on right wrist. ca1 18:16 Inserted saline lock: 20 gauge in right antecubital area, using aseptic technique. dh4 Blood collected. Missed attempt(s): 24 gauge in left antecubital area. 18:21 Bertin Ponce PA is PHCP. jr8 18:21 Eulogio Yoder MD is Attending Physician. jr8 19:18 Pako Lawler, RENAY is Primary Nurse. rr5 19:30 Patient has correct armband on for positive identification. Bed in low position. Call rr5 light in reach. Side rails up X2. panel monitor on. Pulse ox on. NIBP on. 19:52 CT Abd/Pelvis - Without Contrast In Process Unspecified. EDMS 20:56 Attending Physician role handed off by Eulogio Yoder MD [facility] 20:56 Gustavo Chisholm MD is Attending Physician. [facility] 23:23 Initiated transfer at [facility] with Shannon Santos. The call was connected to Dr. viral Chisholm for further questioning regarding the pts case. 23:34 Initiated transfer at [facility] with Katelynn Mariscal. The call was connected with viral Chisholm for further questioning regarding the pts case. 23:48 Katelynn from [facility] called back with their GI specialist to speak with Dr. viral Chisholm regarding the transfer request. 23:50 Updated Shannon Santos at [facility] that the pt wanted to go to [facility], if tt3 not, then to [facility] so that she could cancel the transfer request. 08/18 02:08 Chest Single View XRAY In Process Unspecified. EDMS 02:14 No provider procedures requiring assistance completed. Patient transferred, IV remains rr5 in place. intact, No redness/swelling at site. Administered Medications: 08/17 19:30 Drug: NS 0.9% 500 ml Route: IV; Rate: bolus; Site: right antecubital; rr5 20:15 Follow up: Response: No adverse reaction; IV Status: Completed infusion; IV Intake: rr5 500ml 19:35 Drug: Insulin Regular Human 10 units {Co-Signature: ca1 (Lisa Dunn RN).} Route: IVP; rr5 Site: right antecubital; 20:20 Follow up: Response: No adverse reaction; Blood sugar is lowered rr5 20:42 Drug: Flagyl 500 mg Volume: 100 ml; Route: IVPB; Rate: 200 ml/hr; Infused Over: 30 rr5 mins; Site: right antecubital; 21:15 Follow up: Response: No adverse reaction; IV Status: Completed infusion; IV Intake: rr5 100ml 20:42 Drug: NS 0.9% 500 ml Route: IV; Rate: bolus; Site: right antecubital; rr5 21:20 Follow up: Response: No adverse reaction; IV Status: Completed infusion; IV Intake: rr5 500ml 21:10 Drug: ProTONIX 40 mg Route: IVP; Site: right antecubital; rr5 22:00 Follow up: Response: No adverse reaction rr5 21:20 Drug: NS 0.9% 1000 ml Route: IV; Rate: 75 ml/hr; Site: right antecubital; rr5 22:08 Follow up: Response: No adverse reaction; IV Status: Infusion continued upon admission; rr5 IV Intake: 75ml 08/18 04:00 Follow up: Response: No adverse reaction; IV Status: Infusion continued upon transfer; rr5 IV Intake: 600ml 08/17 21:30 Dru grams of (vancoMYCIN 1 grams, NS 0.9% 250 ml) Route: IVPB; Infused Over: 2 hrs; rr5 Site: right antecubital; 23:30 Follow up: Response: No adverse reaction; IV Status: Completed infusion; IV Intake: rr5 250ml Point of Care Testing: Blood Glucose: 17:49 Blood Glucose: High (>450 mg/dL); ca1 Ranges: Intake: 20:15 IV: 500ml; Total: 500ml. rr5 21:15 IV: 100ml; Total: 600ml. rr5 21:20 IV: 500ml; Total: 1100ml. rr5 22:08 IV: 75ml; Total: 1175ml. rr5 23:30 IV: 250ml; Total: 1425ml. rr5 08/18 04:00 IV: 600ml; Total: 2025ml. rr5 Output: 08/17 19:20 Stool: 1 (Loose Stool) ; Total: 0ml. rr5 08/18 01:20 Stool: 1 (Loose Stool) ; Total: 0ml. rr5 Outcome: 08/17 23:52 ER care complete, transfer ordered by . zenaida 08/18 04:00 Transferred by ground EMS to [facility], [facility], Transfer form completed. rr5 04:00 Condition: stable rr5 04:00 Discharge instructions given to patient, Instructed on the need for transfer. 04:05 Patient left the ED. rr5 Signatures: Dispatcher [employer] EDMS Bertin Ponce PA PA jr8 Nyasia Felix am2 Pako Lawler RN RN rr5 Lisa Dunn RN RN ca1 Darrius Phipps 4 Gustavo Chisholm MD MD 7 Josue Jay 3 Lisa Dunn RN ca1 Corrections: (The following items were deleted from the chart) 08/17 20:20 19:30 Musculoskeletal: Circulation, motion, and sensation intact. Capillary refill < 3 rr5 seconds, rr5
--- NOTE | 2020-08-17 23:53 | EDPHYS ---
Physician Documentation [facility] Name: Franci Lange Age: 75 yrs Sex: Female : 1945 Arrival Date: 08/17/2020 Time: 17:41 Bed 13 Private MD: Manfred Pearson R ED Physician Gustavo Chisholm HPI: 08/17 18:51 This 75 yrs old Female presents to ER via EMS with complaints of Bloody jr8 Stools. 18:51 Onset: The symptoms/episode began/occurred at an unknown time. Associated signs and jr8 symptoms: Pertinent positives: abdominal pain, diarrhea, vomiting. Patient did not remember why she was here to be evaluated. She knew that she was here to have "something checked out". When prompted if it dealt with bleeding from her bottom she agreed. She has c/o abd pain with N/V.. Historical: - Allergies: 17:48 cefepime; ca1 17:48 CEPHALOSPORINS; ca1 17:48 Ciprofloxacin; ca1 17:48 Cortisone; ca1 17:48 Cortizone-10; ca1 17:48 Erythromycin; ca1 17:48 IVIG; ca1 17:48 PENICILLINS; ca1 17:48 Phenobarbital; ca1 17:48 Tape; ca1 17:48 Aspirin; ca1 - PMHx: 17:48 Ankylosing Spondylitis; CHF; Anxiety; Depression; Diabetes - IDDM; High Cholesterol; ca1 Hypertension; Hypothyroidism; Myasthenia Gravis; Myocardial infarction; Osteoporosis; 22:00 Dementia; rr5 - PSHx: 17:48 brain shunt; meningioma; neck sx; spinal sx; Carpal Tunnel Repair; Cholecystectomy; ca1 - Immunization history:: Adult Immunizations not up to date, Flu vaccine is not up to date. - Social history:: Smoking status: Patient denies any tobacco usage or history of. ROS: 18:54 Cardiovascular: Negative for chest pain, palpitations, and edema, Respiratory: Negative jr8 for shortness of breath, cough, wheezing, and pleuritic chest pain. 18:54 Abdomen/GI: Positive for abdominal pain, nausea, vomiting, and diarrhea, abdominal distension. 18:54 Neuro: Positive for gait disturbance. 20:51 All other systems are negative. jr8 Exam: 18:56 Cardiovascular: Regular rate and rhythm with a normal S1 and S2. No gallops, murmurs, jr8 or rubs. Normal PMI, no JVD. No pulse deficits. Respiratory: Lungs have equal breath sounds bilaterally, clear to auscultation and percussion. No rales, rhonchi or wheezes noted. No increased work of breathing, no retractions or nasal flaring. 18:56 Eyes: Nystagmus: 19:03 Abdomen/GI: Inspection: bruising, right upper quadrant, left upper quadrant, right jr8 lower quadrant and left lower quadrant, distension, that is moderate, in the abdomen diffusely, Bowel sounds: normal, in all quadrants, Palpation: severe abdominal tenderness, involuntary guarding, is elicited in all quadrants, Rectal exam: Stool: brown, guaiac positive, soft, Indicators: 19:03 Back: CVA tenderness, is absent. 19:03 Neuro: Orientation: to person, place, Memory: immediate memory is intact, remote memory is recent memory Mild impairment. 19:18 ECG was reviewed by the Attending Physician. jr8 20:51 ENT: Nares patent. No nasal discharge, no septal abnormalities noted. Tympanic jr8 membranes are normal and external auditory canals are clear. Oropharynx with no redness, swelling, or masses, exudates, or evidence of obstruction, uvula midline. Mucous membranes moist. Neck: Trachea midline, no thyromegaly or masses palpated, and no cervical lymphadenopathy. Supple, full range of motion without nuchal rigidity, or vertebral point tenderness. No Meningismus. Skin: Warm, dry with normal turgor. Normal color with no rashes, no lesions, and no evidence of cellulitis. MS/ Extremity: Pulses equal, no cyanosis. Neurovascular intact. Full, normal range of motion. Vital Signs: 17:45 BP 156 / 59; Pulse 66; Resp 16 S; Temp 97.6(O); Pulse Ox 100% on R/A; Pain 2/10; ca1 19:20 BP 146 / 90; Pulse 86; Resp 17; Temp 98.5; Pulse Ox 98% ; rr5 20:30 BP 141 / 85; Pulse 80; Resp 19; Pulse Ox 99% ; rr5 21:30 BP 149 / 95; Pulse 90; Resp 17; Pulse Ox 98% ; rr5 22:26 BP 133 / 89; Pulse 85; Resp 17; Pulse Ox 98% ; rr5 23:30 BP 146 / 89; Pulse 80; Resp 17; Pulse Ox 98% on R/A; rr5 20 00:48 BP 155 / 89; Pulse 87; Resp 16; Pulse Ox 96% ; rr5 01:48 BP 141 / 79; Pulse 80; Resp 19; Pulse Ox 95% ; rr5 03:00 BP 149 / 89; Pulse 80; Resp 17; Temp 97.5; Pulse Ox 97% on R/A; rr5 04:00 BP 135 / 70; Pulse 75; Resp 19; Pulse Ox 98% ; rr5 MDM: 08/17 18:21 Patient medically screened. 8 19:07 Data reviewed: vital signs, nurses notes, lab test result(s), EKG, radiologic studies. [facility] Data interpreted: monitoring manager: rate is 66 beats/min, Pulse oximetry: on room air is 100 %. Interpretation: normal. 20:51 Counseling: I had a detailed discussion with the patient and/or guardian regarding: the [facility] historical points, exam findings, and any diagnostic results supporting the discharge/admit diagnosis, lab results, radiology results, the need to transfer to another facility, [facility] does not immediately have the required specialist. 08/17 18:06 Order name: Glucose, Ancillary Testing; Complete Time: 18:21 EDMS 08/17 18:12 Order name: CBC with Diff; Complete Time: 23:29 iw 08/17 18:12 Order name: Basic Metabolic Panel; Complete Time: 18:57 08/17 18:21 Order name: Hepatic Function [facility] 08/17 18:21 Order name: Lipase [facility] 08/17 18:22 Order name: Liver (Hepatic) Function; Complete Time: 20:47 EDMS 08/17 18:22 Order name: Lipase; Complete Time: 20:47 EDMS 08/17 19:01 Order name: Urine Culture [facility] 08/17 19:01 Order name: Urine Microscopic Only; Complete Time: 20:[address] [facility] 08/17 19:46 Order name: Urine Dipstick--Ancillary (enter results) 3 08/17 19:47 Order name: Urine Dipstick-Ancillary; Complete Time: 20:06 EDMS 08/17 18:21 Order name: IV Saline Lock; Complete Time: 18:[address] [facility] 08/17 18:21 Order name: Labs collected and sent; Complete Time: 18:[address] [facility] 08/17 18:58 Order name: CT Abd/Pelvis - Without Contrast; Complete Time: 20:08 8 08/17 20:19 Order name: COVID-19 : Document "Date of Symptom Onset" if Symptomatic. rr5 08/17 20:38 Order name: Glucose, Ancillary Testing [facility] 08/17 22:04 Order name: Manual Differential; Complete Time: 23:29 EDMS 08/18 00:24 Order name: SARS-COV-2 RT PCR; Complete Time: 01:21 EDMS 08/18 01:35 Order name: Chest Single View XRAY [facility] 08/17 18:51 Order name: EKG - Nurse/Tech; Complete Time: 19:13 jr8 08/17 19:01 Order name: Urine Dipstick-Ancillary (obtain specimen); Complete Time: 19:44 8 08/17 19:01 Order name: Straight Cath - Urine; Complete Time: 19:44 jr8 EC:18 Rate is 77 beats/min. Rhythm is regular, Sinus Rhythm with bigemeny. QRS Bim is jr8 Normal. ND interval is normal at 158 msec. QRS interval is normal at 86 msec. QT interval is normal at 398 msec. Q waves are Present in leads III, aVF, V2, V3. T waves are Flattened in leads III, aVF. No ST changes noted. Clinical impression: Anterior IL - age indeterminate and Inferior IL - age indeterminate. Interpreted by me. Reviewed by me. Administered Medications: 19:30 Drug: NS 0.9% 500 ml Route: IV; Rate: bolus; Site: right antecubital; rr5 20:15 Follow up: Response: No adverse reaction; IV Status: Completed infusion; IV Intake: rr5 500ml 19:35 Drug: Insulin Regular Human 10 units {Co-Signature: ca1 (Lisa Dunn RN).} Route: IVP; rr5 Site: right antecubital; 20:20 Follow up: Response: No adverse reaction; Blood sugar is lowered rr5 20:42 Drug: Flagyl 500 mg Volume: 100 ml; Route: IVPB; Rate: 200 ml/hr; Infused Over: 30 rr5 mins; Site: right antecubital; 21:15 Follow up: Response: No adverse reaction; IV Status: Completed infusion; IV Intake: rr5 100ml 20:42 Drug: NS 0.9% 500 ml Route: IV; Rate: bolus; Site: right antecubital; rr5 21:20 Follow up: Response: No adverse reaction; IV Status: Completed infusion; IV Intake: rr5 500ml 21:10 Drug: ProTONIX 40 mg Route: IVP; Site: right antecubital; rr5 22:00 Follow up: Response: No adverse reaction rr5 21:20 Drug: NS 0.9% 1000 ml Route: IV; Rate: 75 ml/hr; Site: right antecubital; rr5 22:08 Follow up: Response: No adverse reaction; IV Status: Infusion continued upon admission; rr5 IV Intake: 75ml 08/18 04:00 Follow up: Response: No adverse reaction; IV Status: Infusion continued upon transfer; rr5 IV Intake: 600ml 08/17 21:30 Dru grams of (vancoMYCIN 1 grams, NS 0.9% 250 ml) Route: IVPB; Infused Over: 2 hrs; rr5 Site: right antecubital; 23:30 Follow up: Response: No adverse reaction; IV Status: Completed infusion; IV Intake: rr5 250ml Point of Care Testing: Blood Glucose: 17:49 Blood Glucose: High (>450 mg/dL); ca1 Ranges: Critical Glucose Levels:Adult <50 mg/dl or >400 mg/dl <40 mg/dl or >180 mg/dl Disposition: 08/18 07:16 Co-signature as Attending Physician, Gustavo Chisholm MD. [facility] Disposition: 08/17/20 23:52 Transfer ordered to Other Acute Care Facility. Diagnosis are Lower GI Bleed , Sterocal Colitis, Pancreatitis. - Reason for transfer: Higher level of care. - Accepting physician is Dr. Bangura. - Condition is Stable. - Problem is new. - Symptoms have improved. Signatures: Dispatcher [employer] EDMS Bertin Ponce PA PA 8 Pako Lawler RN RN rr5 Lisa Dunn RN RN ca1 Gustavo Chisholm MD MD [facility] Lisa Dunn RN ca1 Corrections: (The following items were deleted from the chart) 08/17 19:04 19:02 BLOOD CULTURE*+[id number].LAB.BRZ ordered. EDMS EDMS 19:44 19:00 Urine Dipstick-Ancillary ordered. chidi rr5 19:45 19:02 Urine Microscopic Only ordered. EDMS EDMS 23:28 20:20 CORONAVIRUS ordered. EDMS EDMS 08/18 02:07 08/17 23:52 08/17/2020 23:52 Transfer ordered to [facility]. Diagnosis is mh7 Lower GI Bleed ; Sterocal Colitis; Pancreatitis. Reason for transfer: Higher level of care. Accepting physician is Dr. Don. Condition is Stable. Problem is new. Symptoms have improved. 7 08/18 04:05 02:07 08/17/2020 23:52 Transfer ordered to Other Acute Care Facility. Diagnosis is rr5 Lower GI Bleed ; Sterocal Colitis; Pancreatitis. Reason for transfer: Higher level of care. Accepting physician is Dr. Bangura. Condition is Stable. Problem is new. Symptoms have improved. 7
[2020-08-18 04:15] VITALS: TEMP 98.5
[2020-08-18 04:23] VITALS: BP 141/79; O2SAT 95
--- NOTE | 2020-08-18 12:54 | RAD REPORT ---
EXAM DESCRIPTION: Chest Single View 08/18/2020 2:10 AM CDT CLINICAL HISTORY: 75 years, Female, COVID COMPARISON: 04/18/2020 FINDINGS: Single view of the chest was obtained portable. Prior films were compared. Again there is a left subclavian venous port tip of the catheter within the innominate vein. External EKG leads within the [id number] limits diagnosis. Again the patient is slumped towards the right side. The heart is prominent. The thoracic aorta demonstrate intimal calcification. The pulmonary vas culature is normal distribution. No areas of consolidation or masses are seen. There is fusion of t he anterior posterior cervical spine The rest of the soft tissue and bony structures demonstrate to b e unremarkable. IMPRESSION: No acute disease. No significant interval change. Left subclavian venous port tip of the catheter within the innominate vein. Electronically signed by: Kasi Yancey MD 08/18/2020 2:11 AM CDT Due to temporary technical issues with the PACS/Fluency reporting system, reports are being signed by the in house radiologist without review as a courtesy to ensure prompt reporting. The interpreting r adiologist is fully responsible for the content of the report.
== END 2020-08-18 04:05 ==
LOC: ER 17:39
DX: U07.1 COVID-19 (principal); K92.2 Gastrointestinal hemorrhage, unspecified; K52.9 Noninfective gastroenteritis and colitis, unspecified; K85.90 Acute pancreatitis without necrosis or infection, unspecified; I10 Essential (primary) hypertension; F03.90 Unspecified dementia, unspecified severity, without behavioral disturbance, psychotic disturbance, mood disturbance, and anxiety; Z98.2 Presence of cerebrospinal fluid drainage device; Z88.0 Allergy status to penicillin; Z88.1 Allergy status to other antibiotic agents; Z88.3 Allergy status to other anti-infective agents; Z88.5 Allergy status to narcotic agent; Z88.8 Allergy status to other drugs, medicaments and biological substances; Z91.048 Other nonmedicinal substance allergy status
CPT/HCPCS: 96365; 96367; 96361; 93005; 87088; 85025; 87086; 80048; 36415; 82947 ×2; 80076; 83690; 74176; 71045; 96375; 99285; 96366; U0003; C9113; J3370; J7050; J7040 ×2; J7030; 81003; 81015

== ENCOUNTER 2021-03-01 23:09 | Inpatient (IN) | payer OTHER ==
[2021-03-01 23:35] LABS: Urine Blood Trace-intact (Negative); Urine Glucose Negative (Negative); Urine Protein Negative (Negative); Urine Specific Gravity <=1.005 (1.005-1.030); Urine pH 5.5 (5.0-7.0)
[2021-03-02] MEDS ORDERED: NA CHLORIDE 0.9% 500 ML ONE ×2 (01:09→04:31)
[2021-03-02 01:18] LABS: Protime INR 0.88
[2021-03-02 01:57] LABS: Absolute Lymphocytes (CBC) 2.4 K/uL (0.7-4.9); Basophils % 0.6 % (0-1.3); Hematocrit 45.5 % (36.0-45.0); Lymphocytes % 14.8 % (15.3-44.8); MPV 8.8 fL (7.6-11.3); RBC Red Blood Cell Count 4.65 M/uL (3.86-4.86)
[2021-03-02 02:09] LABS: Albumin 2.6 g/dL (3.4-5.0); Bilirubin Direct 0.2 mg/dL (0-0.2); Bilirubin Total 0.5 mg/dL (0.2-1.0); Magnesium 2.1 mg/dL (1.8-2.4); Potassium 3.9 mmol/L (3.5-5.1); Protein, Total 5.8 g/dL (6.4-8.2)
[2021-03-02 02:36] LABS: Blood Morphology Comment NOT SEEN (NOT SEEN); Platelet Estimate ADEQ; Platelets, Giant SEEN
--- NOTE | 2021-03-02 03:42 | ER ---
Nurse's Notes [facility] Name: Franci Lange Age: 76 yrs Sex: Female : 1945 Arrival Date: 03/01/2021 Time: 23:17 Bed 24 Private MD: Diagnosis: Acute Pancreatitis;Diarrhea, unspecified Presentation: 03/01 23:15 Chief complaint: EMS states: "GI issues" [facility] . dc2 Per EMS pt had diarrhea then was given lactulose and pt stopped going to the bathroom. Pt refuse to tell staff why is she here. Pt states " I'm in hell "refusing to give further details. Coronavirus screen: Vaccine status: Patient reports receiving the 2nd dose of the covid vaccine. Client denies travel out of the [place] in the last 14 days. At this time, the client does not indicate any symptoms associated with coronavirus-19. Ebola Screen: Patient negative for fever greater than or equal to 101.5 degrees Fahrenheit, and additional compatible Ebola Virus Disease symptoms Patient denies exposure to infectious person. Patient denies travel to an Ebola-affected area in the 21 days before illness onset. Initial Sepsis Screen: Does the patient meet any 2 criteria? No. Patient's initial sepsis screen is negative. Risk Assessment: Do you want to hurt yourself or someone else? Unable to obtain. Onset of symptoms was February 26, 2021. Care prior to arrival: None. 23:15 Method Of Arrival: EMS: [facility] dc2 23:15 Acuity: JAY 3 dc2 Triage Assessment: 23:15 General: Appears comfortable, obese. Pain: Noted to be When touched patient states it dc2 hurts no matter where . Pt refuse to speak about specific pain. 23:15 Neuro: No deficits noted. Cardiovascular: No deficits noted. Respiratory: No deficits dc2 noted. GI: Abdomen is round distended, Bowel sounds present X 4 quads. hyperactive in X 4. : No deficits noted. No signs and/or symptoms were reported regarding the genitourinary system. Pt in a depends diaper. Derm: Skin is fragile, is thin, with poor turgor has skin tears on to bilateral arms. Are dried with no drainage. Musculoskeletal: Capillary refill is sluggish, in right in left toes. Bilateral footdrop noted. Feet very dry with long toenails.. Historical: - Allergies: 23:15 Aspirin; dc2 23:15 CEPHALOSPORINS; dc2 23:15 cefepime; dc2 23:15 PENICILLINS; dc2 23:15 Ciprofloxacin; dc2 23:15 Cortisone; dc2 23:15 Erythromycin; dc2 23:15 IVIG; dc2 23:15 Phenobarbital; dc2 23:15 Cortizone-10; dc2 23:15 Tape; dc2 - PMHx: 23:15 Ankylosing Spondylitis; Anxiety; Dementia; CHF; Depression; Diabetes - IDDM; High dc2 Cholesterol; Hypertension; Hypothyroidism; Myasthenia Gravis; Myocardial infarction; Osteoporosis; - Immunization history:: Adult Immunizations up to date, Client reports receiving the 2nd dose of the Covid vaccine. - Social history:: Smoking status: unknown. - Code Status:: Full code. - History obtained from: long term paperwork. - Ebola Screening: : Patient denies travel to an Ebola-affected area in the 21 days before illness onset No symptoms or risks identified at this time. Screenin:30 Abuse screen: Denies threats or abuse. Denies injuries from another. Nutritional dc2 screening: No deficits noted. Tuberculosis screening: No symptoms or risk factors identified. Never had TB. Possible symptoms: None Risk factors: None. Fall Risk Fall in past 12 months (25 points). Secondary diagnosis (15 points) No IV (0 pts). Ambulatory Aid- None/Bed Rest/Nurse Assist (0 pts). Gait- Impaired (20 pts.). Mental Status- Oriented to own ability (0 pts). Total Badillo Fall Scale indicates High Risk Score (45 or more points). Fall prevention measures have been instituted. Side Rails Up X 2 Placed Close to Nursing Station Frequent Obs/Assessments Occuring. Assessment: 23:30 General: Appears uncomfortable, obese, unkempt, Behavior is agitated, fussy, dc2 uncooperative, Pt is uncooperative with answering questions, replies with sarcasm remarks with most questions. Pt is able to state birthday.. Neuro: No deficits noted. Cardiovascular:. 03/02 00:00 GI: Abd is soft Abdomen is tender to palpation. dc2 00:58 Reassessment: ADRIAN Bryant at bedside to speak to . dc2 00:59 Reassessment: Mauricio in CT notified of IV at this time. dc2 03:20 Reassessment: Pt asking for something to drink, will ask Provider. dc2 04:13 Reassessment: Phlebotomy at bedside for 2nd set blood cultures. dc2 05:00 Reassessment: D51/2 NS administered at 100ml / hour to left AC without difficulty. dc2 06:03 Reassessment: report called to Kaela NIÑO for room 217. bb Vital Signs: 03/01 23:15 BP 126 / 43; Pulse 76; Resp 18; Temp 98.1; Pulse Ox 98% ; Weight 87.09 kg; Height 4 ft. dc2 11 in. (149.86 cm); Pain 5/10; 23:15 BP 126 / 43; Pulse 76; Resp 18; Temp 98.1; Pulse Ox 98% ; Pain 5/10; dc2 03/02 00:00 BP 125 / 65; Pulse 77; Resp 18; Pulse Ox 99% ; Pain 5/10; dc2 01:00 BP 136 / 65; Pulse 82; Resp 18; Pulse Ox 100% on R/A; Pain 5/10; dc2 02:30 BP 152 / 59; Pulse 99; Resp 17; Pulse Ox 99% ; Pain 5/10; dc2 03:30 BP 129 / 48; Pulse 79; Resp 18; Pulse Ox 98% ; Pain 0/10; dc2 03:30 BP 158 / 58; Pulse 80; Resp 18; Temp 98.0(TE); Pulse Ox 100% ; Pain 0/10; dc2 06:04 BP 173 / 72; Pulse 79; Resp 18 S; Pulse Ox 98% on R/A; bb 03/01 23:15 Body Mass Index 38.78 (87.09 kg, 149.86 cm) dc2 ED Course: 03/01 23:15 Arm band placed on Patient placed in an exam room, on a stretcher, on property assessment monitor, dc2 on pulse oximetry. EKG completed in triage. Results shown to MD. EKG completed in triage. Results shown to MD. 23:15 Patient has correct armband on for positive identification. Placed in gown. Bed in low dc2 position. Call light in reach. Side rails up X 1. 23:17 Patient arrived in ED. bb 23:21 Luther Landers PA is PHCP. cp 23:21 Gustavo Chisholm MD is Attending Physician. cp 23:25 Virginia Allred, RENAY is Primary Nurse. dc2 23:47 Triage completed. dc2 23:57 X-ray(s) taken. dc2 10 00:27 XRAY Chest (1 view) In Process Unspecified. EDMS 00:53 Initial lab(s) drawn, by me, sent to lab. Inserted saline lock: 22 gauge in left bb antecubital area, using aseptic technique. Blood collected. 01:17 Basic Metabolic Panel Sent. dc2 01:17 CBC with Diff Sent. dc2 01:17 Hepatic Function Sent. dc2 01:17 Lipase Sent. dc2 02:[address] via stretcher. dc2 02:[address]. dc2 02:48 CT Abd/Pelvis - IV Contrast Only In Process Unspecified. EDMS 03:27 ED physician to see patient. dc2 03:39 Raj Loaiza DO is Hospitalizing Provider. cp 04:00 bus driver/monitor on. Pulse ox on. NIBP on. dc2 04:20 Enriquez cath inserted, using sterile technique, 16 Fr., by me, balloon inflated, returned dc2 clear yellow urine. Patient tolerated well. 05:00 No provider procedures requiring assistance completed. dc2 Administered Medications: 06:18 Discontinued: NS 0.9% 500 ml IV at 100 ml/hr continuous dc2 01:00 Drug: NS 0.9% 500 ml Route: IV; Rate: 100 ml/hr; Infused Over: 100 continuous; Site: dc2 left antecubital; Delivery: Primary tubing; 04:04 Drug: NS 0.9% 500 ml Route: IV; Rate: bolus; Site: left antecubital; dc2 04:16 Drug: Meropenem 1 grams Route: IV; Rate: calculated rate; Infused Over: 1 hrs; Site: dc2 left antecubital; Delivery: Primary tubing; 06:17 Follow up: IV Status: Completed infusion dc2 05:32 CANCELLED (Other Intervention Used): NS 0.9% 1000 ml IV at 100 ml/hr continuous la1 Outcome: 03:41 Decision to Hospitalize by Provider. cp 06:03 [facility], room 217, with chart, Report bb called to Kaela NIÑO 06:03 Condition: stable 06:10 Admitted to Med/surg accompanied by tech, via stretcher, with chart, Report called to angel Sherwood RN by Tessie, Charge nurse. 06:10 Condition: stable 06:19 Patient left the ED. dc2 Signatures: Dispatcher [employer] EDMS Tessie Shaffer RN RN Luther Mckinney PA PA cp Charters, Denise, RN RN dc2 Dean Ford [facility] Corrections: (The following items were deleted from the chart) 01:58 01:00 BP 125 / 65; Pulse 79bpm; Resp 18bpm; Pulse Ox 99%; Pain 5/10; dc2 dc2
--- NOTE | 2021-03-02 03:42 | EDPHYS ---
Physician Documentation [facility] Name: Franci Lange Age: 76 yrs Sex: Female : 1945 Arrival Date: 03/01/2021 Time: 23:17 Bed 24 Private MD: ED Physician Gustavo Chisholm HPI: 03/01 23:40 This 76 yrs old Female presents to ER via EMS with complaints of Abd Pain > cp 52 y/o, Diarrhea. 23:40 The patient presents with abdominal distention that is diffuse. Onset: The cp symptoms/episode began/occurred gradually. Associated signs and symptoms: Pertinent positives: constipation, diarrhea, Pertinent negatives: vomiting. Historical: - Allergies: 23:15 Aspirin; dc2 23:15 CEPHALOSPORINS; dc2 23:15 cefepime; dc2 23:15 PENICILLINS; dc2 23:15 Ciprofloxacin; dc2 23:15 Cortisone; dc2 23:15 Erythromycin; dc2 23:15 IVIG; dc2 23:15 Phenobarbital; dc2 23:15 Cortizone-10; dc2 23:15 Tape; dc2 - PMHx: 23:15 Ankylosing Spondylitis; Anxiety; Dementia; CHF; Depression; Diabetes - IDDM; High dc2 Cholesterol; Hypertension; Hypothyroidism; Myasthenia Gravis; Myocardial infarction; Osteoporosis; - Immunization history:: Adult Immunizations up to date, Client reports receiving the 2nd dose of the Covid vaccine. - Social history:: Smoking status: unknown. - Code Status:: Full code. - History obtained from: prison paperwork. - Ebola Screening: : Patient denies travel to an Ebola-affected area in the 21 days before illness onset No symptoms or risks identified at this time. ROS: 23:45 Constitutional: Negative for fever. cp 23:45 Eyes: Negative for injury, pain, redness, and discharge. cp 23:45 Cardiovascular: Negative for chest pain, edema, palpitations. 23:45 Respiratory: Negative for shortness of breath, wheezing. 23:45 Abdomen/GI: Positive for diarrhea, constipation, abdominal distension, Negative for vomiting. 23:45 Neuro: Negative for altered mental status. 23:45 All other systems are negative. Exam: 23:20 ECG was reviewed by the Attending Physician. cp 23:50 Constitutional: The patient appears in no acute distress, alert, awake, cp non-diaphoretic, non-toxic, well developed, well nourished, obese. 23:50 Head/Face: Normocephalic, atraumatic. cp 23:50 Eyes: Periorbital structures: appear normal, Conjunctiva: normal, no exudate, no injection, Sclera: no appreciated abnormality, Lids and lashes: appear normal, bilaterally. 23:50 ENT: External ear(s): are unremarkable, Nose: is normal, Mouth: Lips: dry, Oral mucosa: dry, Posterior pharynx: Airway: no evidence of obstruction, patent. 23:50 Neck: ROM/movement: is normal, is supple, without pain, no range of motions limitations. 23:50 Chest/axilla: Inspection: normal, Palpation: is normal, no crepitus, no tenderness. 23:50 Cardiovascular: Rate: normal, Rhythm: regular. 23:50 Respiratory: the patient does not display signs of respiratory distress, Respirations: normal, no use of accessory muscles, no retractions, labored breathing, is not present, Breath sounds: are clear throughout, no decreased breath sounds, no stridor, no wheezing. 23:50 Abdomen/GI: Inspection: obese Bowel sounds: active, all quadrants, Palpation: soft, in all quadrants, mild abdominal tenderness, in the epigastric area, involuntary guarding, is not appreciated, Hernia: noted in the umbilical area, tenderness, is not appreciated. 23:50 Skin: cellulitis, is not appreciated, no rash present. Vital Signs: 23:15 BP 126 / 43; Pulse 76; Resp 18; Temp 98.1; Pulse Ox 98% ; Weight 87.09 kg; Height 4 ft. dc2 11 in. (149.86 cm); Pain 5/10; 23:15 BP 126 / 43; Pulse 76; Resp 18; Temp 98.1; Pulse Ox 98% ; Pain 5/10; dc2 02 00:00 BP 125 / 65; Pulse 77; Resp 18; Pulse Ox 99% ; Pain 5/10; dc2 01:00 BP 136 / 65; Pulse 82; Resp 18; Pulse Ox 100% on R/A; Pain 5/10; dc2 02:30 BP 152 / 59; Pulse 99; Resp 17; Pulse Ox 99% ; Pain 5/10; dc2 03:30 BP 129 / 48; Pulse 79; Resp 18; Pulse Ox 98% ; Pain 0/10; dc2 03:30 BP 158 / 58; Pulse 80; Resp 18; Temp 98.0(TE); Pulse Ox 100% ; Pain 0/10; dc2 06:04 BP 173 / 72; Pulse 79; Resp 18 S; Pulse Ox 98% on R/A; bb 03/01 23:15 Body Mass Index 38.78 (87.09 kg, 149.86 cm) dc2 MDM: 03/01 23:26 Patient medically screened. cp 23:50 Differential diagnosis: gastritis, non-specific abd pain, pancreatitis, cp Ureterolithiasis, urinary tract infection, bowel obstruction. 03/02 03:35 Data reviewed: vital signs, nurses notes, lab test result(s), EKG, radiologic studies, cp CT scan, and as a result, I will admit patient. 03:35 Test interpretation: by ED physician or midlevel provider: ECG, plain radiologic cp studies. Counseling: I had a detailed discussion with the patient and/or guardian regarding: the historical points, exam findings, and any diagnostic results supporting the discharge/admit diagnosis, lab results, radiology results. 03/01 23:34 Order name: Urine Dipstick-Ancillary; Complete Time: 00:09 EDMS 03/01 23:41 Order name: Basic Metabolic Panel cp 03/01 23:41 Order name: CBC with Diff; Complete Time: 02:43 cp 03/02 02:43 Interpretation: Normal except: WBC 16.00; HCT 45.5; MCV 97.9; MCH 31.9; RDW 15.6; CARLOS% cp 78.1; LYM% 14.8; NEUT A 12.5. 03/01 23:41 Order name: Hepatic Function; Complete Time: 02:43 cp 03/01 23:41 Order name: Lipase; Complete Time: 02:43 cp 03/02 02:43 Interpretation: Abnormal: LIP 1112. cp 03/01 23:41 Order name: PT-INR; Complete Time: 02:43 cp 03/01 23:41 Order name: Magnesium; Complete Time: 02:43 cp 03/01 23:41 Order name: Basic Metabolic Panel; Complete Time: 02:43 EDMS 03/02 02:11 Order name: Manual Differential; Complete Time: 02:43 EDMS 03/02 02:52 Order name: Urine Microscopic Only cp 03/02 03:37 Order name: Procalcitonin; Complete Time: 04:51 cp 03/02 03:37 Order name: Lactate; Complete Time: 04:37 cp 03/02 03:37 Order name: Blood Culture Adult (2) cp 03/01 23:41 Order name: IV Saline Lock; Complete Time: 00:57 cp 03/01 23:41 Order name: Labs collected and sent; Complete Time: 00:57 cp 03/01 23:41 Order name: XRAY Chest (1 view) cp 03/01 23:41 Order name: CT Abd/Pelvis - IV Contrast Only cp 03/02 03:37 Order name: Enriquez; Complete Time: 06:18 cp 03/02 04:26 Order name: ETOH Level cp 03/02 04:26 Order name: Lipid Profile cp 03/02 04:26 Order name: Alcohol Serum/Plasma; Complete Time: 05:02 EDMS 03/02 04:26 Order name: Lipid Profile; Complete Time: 05:02 EDMS 03/02 05:01 Order name: SARS-COV-2 RT PCR; Complete Time: 05:02 EDMS EC/01 23:20 Rate is 78 beats/min. Rhythm is regular. OK interval is normal. QRS interval is normal. cp QT interval is normal. T waves are Inverted in lead aVL. Interpreted by me. Reviewed by me. Administered Medications: 03/02 06:18 Discontinued: NS 0.9% 500 ml IV at 100 ml/hr continuous dc2 01:00 Drug: NS 0.9% 500 ml Route: IV; Rate: 100 ml/hr; Infused Over: 100 continuous; Site: dc2 left antecubital; Delivery: Primary tubing; 04:04 Drug: NS 0.9% 500 ml Route: IV; Rate: bolus; Site: left antecubital; dc2 04:16 Drug: Meropenem 1 grams Route: IV; Rate: calculated rate; Infused Over: 1 hrs; Site: dc2 left antecubital; Delivery: Primary tubing; 06:17 Follow up: IV Status: Completed infusion dc2 05:32 CANCELLED (Other Intervention Used): NS 0.9% 1000 ml IV at 100 ml/hr continuous la1 Disposition: 07:01 Co-signature as Attending Physician, Gustavo Chisholm MD. [email or web address] Disposition Summary: 03/02/21 03:41 Hospitalization Ordered Hospitalization Status: Inpatient Admission cp Provider: Raj Loaiza cp Location: Telemetry/MedSur (Inpatient) cp Condition: Stable cp Problem: new cp Symptoms: have improved cp Bed/Room Type: Standard cp Room Assignment: 217(03/02/21 05:43) tt3 Diagnosis - Acute Pancreatitis cp - Diarrhea, unspecified cp Forms: - Medication Reconciliation Form cp - SBAR form cp Signatures: Dispatcher [employer] EDMS Dean Ford, SENIOR QUALITY ASSURANCE SPECIALIST-C SENIOR QUALITY ASSURANCE SPECIALIST-Cla1 Luther Landers PA PA cp Gustavo Chisholm MD MD [email or web address] Misty, Josue tt3 BrigidaVirginia RN RN dc2 Corrections: (The following items were deleted from the chart) 02:43 02:43 Normal except: WBC 16.00; HCT 45.5; MCV 97.9; MCH 31.9; RDW 15.6; CARLOS% 78.1; LYM% cp 14.8. cp 04:05 03:38 CORONAVIRUS+MR.LAB.BRZ ordered. EDMS EDMS 05:32 03:37 NS 0.9% 1000 ml IV at 100 ml/hr continuous ordered. cp la1 05:43 03:41 cp tt3
[2021-03-02] MEDS ORDERED: NA CHLORIDE 0.9% 0 ML ONE (04:31)
[2021-03-02] MEDS ORDERED: Meropenem 1000 MG/VIAL IV ONE (04:41)
[2021-03-02] MEDS ORDERED: NA CHLORIDE 0.9% 100 ML ONE (04:45)
--- NOTE | 2021-03-02 05:20 | P.HP ---
Certification for Inpatient Patient admitted to: Inpatient With expected LOS: >2 Midnights Patient will require the following post-hospital care: None Practitioner: I am a practitioner with admitting privileges, knowledge of patient current condition, hospital course, and medical plan of care. Services: Services provided to patient in accordance with Admission requirements found in Title 42 Section 412.3 of the Code of Federal Regulations Patient History Date of Service: 03/02/21 Primary Care Provider: Unknown Reason for admission: Pancreatitis History of Present Illness: 76-year-old female with history of diabetes type 2, myasthenia gravis, hypertension, hypothyroidism presents emergency department for GI upset. Patient currently stays at [facility]. Patient was evaluated in the emergency department, labs were significant for white blood cell count 16 hematocrit 45.5 GFR 89 glucose 64 AST 147 triglycerides 172 cholesterol 253 LDL 161 lipase 1112 procalcitonin 0.06 urinalysis with trace leukoesterase microscopic analysis pending alcohol level less than 10 patient with previous cholecystectomy CT abdomen pelvis demonstrates mild fecal stasis, status post cholecystectomy with mild central intrahepatic biliary prominence, bilateral renal cysts, 1.3 cm Dotson structure within the fundus of the uterus could correspond to most likely fibroid. Patient denies any specific abdominal pain at this time but does have mild generalized abdominal tenderness on exam. Patient disoriented does not know what year it is, when asked where she is she says "in hell". Case was also discussed with patient's who is MPOA plan is for admission for pancreatitis, leukocytosis. CODE STATUS discussed at length, continue with full code at this time but this will be dynamic and based on patient's clinical condition. Allergies aspirin Allergy (Verified 04/14/19 06:10) Shortness of breath ciprofloxacin [From Cipro] Allergy (Verified 04/14/19 06:10) Anaphylaxis cortisone Allergy (Verified 04/14/19 06:10) Hives/Rash Penicillins Allergy (Verified 04/14/19 06:10) Hives/Rash phenobarbital Allergy (Verified 04/14/19 06:10) Itching/Hives/Rash Iv IG Allergy (Uncoded 04/11/20 21:43) Itching/Hives/Rash Home Medications: Amlodipine [Norvasc*] 10 mg PO DAILY 04/14/19 Furosemide [Lasix*] 20 mg PO DAILY 04/14/19 Insulin Aspart [Novolog Flexpen] 10 unit SQ TIDWM 04/14/19 Insulin Detemir [Levemir] 25 units SQ 0700,2000 04/14/19 Levothyroxine [Synthroid*] 88 mcg PO [id number] 04/14/19 Melatonin [Melatonin*] 6 mg PO BEDTIME PRN 04/14/19 Potassium Chloride [Micro-K] 10 meq PO BID 04/14/19 Pyridostigmine [place] [Mestinon*] 1 tab PO 0700,1500,2300 04/14/19 Rosuvastatin Calcium [Crestor] 20 mg PO DAILY 04/14/19 Sertraline HCl 25 mg PO BEDTIME 04/14/19 predniSONE [Prednisone*] 20 mg PO DAILY 04/14/19 clonazePAM [Klonopin*] 0.5 mg PO BID #60 tab 02/10/20 Ramipril 2.5 mg PO DAILY 03/16/20 Ergocalciferol (Vitamin D2) [Vitamin D2] 1.25 mg PO EVERY 7TH DAY 04/12/20 azaTHIOprine [Azathioprine] 1 tab PO BID 04/12/20 - Past Medical/Surgical History Diabetic: Yes -: CKD stage 2 -: Benign neoplasm of cerebral meninges -: Hypertension -: COPD -: Chronic diastolic congestive heart failure -: Myasthenia gravis -: Spinal stenosis -: Dementia -: resp failure -: spinal stenosis -: myasthenia gravis -: dementia -: Brain surgery x 2 -: section x 3 -: Cholecystectomy -: neck surgery -: carpal tunnel surgery Psychosocial/ Personal History: Patient lives at [facility] - Family History Mother -: Heart disease Notes: 93y/o , still living Father -: Heart disease Notes: - Social History Alcohol use: No CD- Drugs: No Caffeine use: No Place of Residence: Home Review of Systems is unable to be obtained Physical Examination - Physical Exam General: Alert, Oriented x1, Obese HEENT: Atraumatic Neck: Supple Respiratory: Diminished Cardiovascular: No edema, Normal S1 S2 Capillary refill: <2 Seconds Gastrointestinal: Normal bowel sounds, No masses, No rebound, No guarding, Tenderness (Mild generalized abdominal tenderness) Musculoskeletal: No contractures, No erythema, No tenderness Integumentary: No tenderness/swelling Neurological: Normal speech - Studies Laboratory Data (last 24 hrs) 03/02/21 03:45: Triglycerides 172 H, Cholesterol 253 H, HDL Cholesterol 58, Cholesterol/HDL Ratio 4.36 03/02/21 01:35: WBC 16.00 H, Hgb 14.8, Hct 45.5 H, Plt Count 160 03/02/21 01:35: Sodium 141, Potassium 3.9, BUN 18, Creatinine 0.65, Glucose 64 L, Magnesium 2.1, Total Bilirubin 0.5, AST 147 H, ALT 54, Alkaline Phosphatase 106, Lipase 1112 H 03/02/21 00:53: PT 10.1, INR 0.88 Assessment and Plan - Plan Assessment: Acute pancreatitis with leukocytosis, dehydration Myasthenia gravis Diabetes mellitus type II with hypoglycemia Hypertension Hypothyroidism Dementia Chronic diastolic congestive heart failure COPD Plan: Acute pancreatitis with leukocytosis, dehydration: N.p.o., IV fluids, as needed pain medications, daily lipase levels CT abdomen pelvis without acute findings related to pancreatitis, patient with prior cholecystectomy. Patient without significant triglyceridemia, alcohol level negative. Patient denies any signif icant pain but does have mild tenderness on palpation to the epigastric region. Patient also with a 16,000 white count with multiple drug allergies, patient on meropenem at this time. Blood cultures obtained. Will monitor daily labs Myasthenia gravis: Need to obtain and verify home medications, patient was previously on chronic steroid therapy, blood pressure stable at this time we will continue as appropriate. Diabetes mellitus type II with hypoglycemia: Patient with hypoglycemia at this time continue D5 half NS with mild sliding scale as needed. Hypertension: Obtain and continue medication Hypothyroidism: Obtain and continue medication Dementia: Obtain and continue medication Chronic diastolic congestive heart failure: Patient appears very dry at this time continue with IV fluids we will need to monitor volume status closely. COPD: Stable, provide as needed medication. DVT PPX: Lovenox Code status: Nury is MPOA, patient states at this time she would not want to be resuscitated but she is not oriented, has been aware of this wants to continue with full code at this time but if patient condition changes he may change his mind. We will need to continue to discuss CODE STATUS on ongoing basis with MPOA. Discharge Plan: [facility] Plan to discharge in: Greater than 2 days - Advance Directives Does patient have a Living Will: No Does patient have a Durable POA for Healthcare: Yes - Code Status/Comfort Care Code Status Assessed: Yes (Full code) Critical Care: No Time Spent Managing Pts Care (In Minutes): 55
[2021-03-02] MEDS ORDERED: D5 0.45 NS 1,000 ML IV ONE (05:51)
[2021-03-02] MEDS ORDERED: MORPHINE 2 MG/ML SYR IV PRN (06:05)
[2021-03-02] MEDS ORDERED: ONDANSETRON 4 MG/2 ML VIAL IV PRN (06:05)
[2021-03-02] MEDS ORDERED: D5 0.45 NS 1,000 ML IV SCH (06:05)
--- NOTE | 2021-03-02 06:24 | P.PN ---
Subjective Date of Service: 03/02/21 Primary Care Provider: Unknown Chief Complaint: Pancreatitis Subjective: Improving, Other ( at bedside.) Physical Examination - Studies Laboratory Data (last 24 hrs) 03/02/21 03:45: Triglycerides 172 H, Cholesterol 253 H, HDL Cholesterol 58, Cholesterol/HDL Ratio 4.36 03/02/21 01:35: WBC 16.00 H, Hgb 14.8, Hct 45.5 H, Plt Count 160 03/02/21 01:35: Sodium 141, Potassium 3.9, BUN 18, Creatinine 0.65, Glucose 64 L, Magnesium 2.1, Total Bilirubin 0.5, AST 147 H, ALT 54, Alkaline Phosphatase 106, Lipase 1112 H 03/02/21 00:53: PT 10.1, INR 0.88 Assessment & Plan Discharge Plan: Other (Deepika Rascon) Plan to discharge in: 24 Hours Physician Review Additional Text: COVID: Negative CXR: COMPARISON: Chest Single View dated 08/18/2020; Chest Single View dated 04/18/2020; Chest Single View dated 04/11/2020; Chest Single View dated 03/16/2020 FINDINGS: Lines: Left IJ approach Port-A-Cath with tip overlying the left brachiocephalic vein. Lungs: No evidence of edema or pneumonia. Pleural: No significant pleural effusions or pneumothorax. Cardiac: Mild cardiomegaly. Bones: No acute fractures. IMPRESSION: No acute cardiopulmonary disease. CT Scan: CT scan showed no evidence of pancreatitis. Physical exam: General: Alert, Oriented x1, Obese HEENT: Atraumatic Neck: Supple Respiratory: Diminished Cardiovascular: No edema, Normal S1 S2 Capillary refill: <2 Seconds Gastrointestinal: Normal bowel sounds, No masses, No rebound, No guarding, no further tenderness noted Musculoskeletal: No contractures, No erythema, No tenderness Integumentary: No tenderness/swelling Neurological: Normal speech Impression: Acute pancreatitis with leukocytosis, dehydration Myasthenia gravis Diabetes mellitus type II with hypoglycemia Hypertension Hypothyroidism Dementia Chronic diastolic congestive heart failure COPD Plan: Acute pancreatitis with leukocytosis, dehydration: Patient improved. CT scan showed no evidence of pancreatitis. Will start clear liquids and advance as tolerated. Patient difficult IV stick. Patient was hypoglycemic this morning. Patient given oral fluids with improvement. Patient was initially not cooperative with nursing. Patient now cooperative. Will advance diet as t olerated. No evidence of infection at this time. Will monitor off antibiotic therapy. Will adjust medications accordingly. Patient does not desire IV fluids. Will monitor with fluids. Myasthenia gravis: Restart medications including steroid. Diabetes mellitus type II with hypoglycemia: We will treat hypoglycemia. Encourage oral intake. Hypertension: Need to obtain and restart home medication Hypothyroidism: Need to obtain restart home medication Dementia: Need to obtain restart home medication Chronic diastolic congestive heart failure: Overall stable COPD: Stable, provide as needed medication. DVT PPX: Lovenox Code status: Nury is MPOA, patient states at this time she would not want to be resuscitated but she is not oriented, has been aware of this wants to continue with full code at this time but if patient condition changes he may change his mind. We will need to continue to discuss CODE STATUS on ongoing basis with TONO. Discharge Plan: Prison Time Spent Managing Pts Care (In Minutes): 55
--- NOTE | 2021-03-02 07:19 | RAD REPORT ---
EXAM DESCRIPTION: RAD - Chest Single View - 03/02/2021 12:27 am CLINICAL HISTORY: ABDOMINAL DISTENTION COMPARISON: Chest Single View dated 08/18/2020; Chest Single View dated 04/18/2020; Chest Single View dated 04/11/2020; Chest Single View dated 03/16/2020 FINDINGS: Lines: Left IJ approach Port-A-Cath with tip overlying the left brachiocephalic vein. Lungs: No evidence of edema or pneumonia. Pleural: No significant pleural effusions or pneumothorax. Cardiac: Mild cardiomegaly. Bones: No acute fractures. Other: IMPRESSION: No acute cardiopulmonary disease.
[2021-03-02] MEDS ORDERED: INSULIN -REGULAR HUMAN 50 UNIT/0.5 ML ML SQ SCH (07:30)
[2021-03-02] MEDS: ENOXAPARIN 40 MG/0.4 ML SQ SCH ×2 (08:56→09:00)
[2021-03-02] MEDS: INSULIN -REGULAR HUMAN 50 UNIT/0.5 ML ML SQ SCH ×3 (12:00→23:57)
[2021-03-02] MEDS ORDERED: Meropenem 1 GM/100 ML BAG IV SCH (12:00)
[2021-03-02] MEDS ORDERED: clonazePAM 0.5 MG TAB PO PRN (13:01)
[2021-03-02 15:15] VITALS: BMI 34.6
[2021-03-02] MEDS: PYRIDOSTIGMINE 60 MG TABLET PO SCH ×2 (16:44→23:58)
[2021-03-02] MEDS: predniSONE 20 MG TAB PO SCH (16:46)
--- NOTE | 2021-03-02 20:49 | RAD REPORT ---
EXAM DESCRIPTION: CT - Abdomen Pelvis W Contrast - 03/02/2021 4:13 am CLINICAL HISTORY: 76 years, Female, ABDOMINAL DISTENTION COMPARISON: 08/17/2020 TECHNIQUE: Contrast-enhanced images of the abdomen and pelvis were performed utilizing 5 mm slice th ickness at 5 mm interval reconstruction from the lung bases to the ischial tuberosities after the adm inistration of IV contrast demonstrate minimal dependent atelectatic changes. In addition multiplanar reformats in the coronal and sagittal plane were obtained and reviewed. This exam was performed according to our departmental dose-optimization protocol, which includes auto mated exposure control, adjustment of the mA and/or kV according to patient size and/or use of iterat kimberly reconstruction technique. FINDINGS: The lung bases demonstrate to be clear. There is a tubular structure within the anterior c hest subcutaneous tissue entering within the upper abdomen corresponding to most likely ventricular p eritoneal shunt. The liver, pancreas, spleen and adrenal glands demonstrate to be unremarkable, no focal lesions are n oted. Surgical clips within the gallbladder fossa correspond to previous cholecystectomy. There is mi ld central intrahepatic biliary prominence. The common bile duct measured 7.7 mm on image 22 The kidneys demonstrate normal uptake of contrast media. There are several tiny hypodensities within the right and left kidney corresponding most likely to renal cysts, the largest one lower pole left k idney measuring 1.8 cm on image 38. Grossly the unopacified stomach, small bowel and large bowel demonstrate to be within normal limits. There is no evidence for bowel dilatation/or free air. Fecal residue within the large bowel corresp ond to mild fecal stasis. The appendix was not visualized. The urinary bladder was partially distended with no gross abnormalities. The uterus demonstrate to be within normal limits. Enhancing structure within the fundus measuring 1.3 cm could correspond to m ost likely to a fibroid. The aorta demonstrate atherosclerotic disease extending into the aortic bi furcation. There is no retroperitoneal lymphadenopathy. There is no evidence for ascites or an/or s ignificant normal fluid collections. The bone windows demonstrate diffuse bony osteopenia. Degenerative changes bilateral hip joints. Agai n there is superior endplate compression deformity at L2 and small inferior plate compression deformi ty at T12. IMPRESSION: Mild fecal stasis. Status post cholecystectomy with mild central intrahepatic biliary prominence. Bilateral renal cysts. 1.3 cm enhancing structure within the fundus of the uterus could correspond to most likely to most li kristina to most likely to a fibroid. Diffuse bony osteopenia with superior endplate compression deformity at L2 and small inferior plate c ompression deformity at T12. Electronically signed by: Kasi Yancey MD 03/02/2021 3:12 AM CDT Due to temporary technical issues with the PACS/Fluency reporting system, reports are being signed by the in house radiologists without review as a courtesy to insure prompt reporting. The interpreting radiologist is fully responsible for the content of the report.
[2021-03-02] MEDS: SERTRALINE HCL 50 MG TAB PO SCH ×3 (21:00→23:50)
[2021-03-02] MEDS: AZATHIOPRINE 50 MG TABLET PO SCH ×3 (21:00→23:55)
[2021-03-02] MEDS: MELATONIN 3 MG TABLET PO PRN ×2 (21:37→23:50)
[2021-03-03] MEDS: LEVOTHYROXINE SOD 0.088 MG TAB PO SCH ×2 (05:44→05:49)
[2021-03-03] MEDS: PYRIDOSTIGMINE 60 MG TABLET PO SCH ×4 (05:44→22:23)
[2021-03-03] MEDS: INSULIN -REGULAR HUMAN 50 UNIT/0.5 ML ML SQ SCH ×3 (06:00→17:23)
--- NOTE | 2021-03-03 06:13 | P.PN ---
Subjective Date of Service: 03/03/21 Primary Care Provider: Unknown Chief Complaint: Pancreatitis Subjective: Improving, Other (Patient alert, cooperative. Patient afebrile.) Physical Examination - Vital Signs Temperature: 97.1 F Blood Pressure: 163/75 Pulse: 96 Respirations: 18 Pulse Ox (%): 96 - Studies Microbiology Data (last 24 hrs): 03/02/21 04:15 Blood - Blood Anaerobic Blood Culture - Final Assessment & Plan Discharge Plan: Shelter Plan to discharge in: 24 Hours Physician Review Additional Text: COVID: Negative CXR: COMPARISON: Chest Single View dated 08/18/2020; Chest Single View dated 04/18/2020; Chest Single View dated 04/11/2020; Chest Single View dated 03/16/2020 FINDINGS: Lines: Left IJ approach Port-A-Cath with tip overlying the left brachiocephalic vein. Lungs: No evidence of edema or pneumonia. Pleural: No significant pleural effusions or pneumothorax. Cardiac: Mild cardiomegaly. Bones: No acute fractures. IMPRESSION: No acute cardiopulmonary disease. CT Scan: FINDINGS: The lung bases demonstrate to be clear. There is a tubular structure within the anterior chest subcutaneous tissue entering within the upper abdomen corresponding to most likely ventricular peritoneal shunt. The liver, pancreas, spleen and adrenal glands demonstrate to be unremarkable, no focal lesions are noted. Surgical clips within the gallbladder fossa correspond to previous cholecystectomy. There is mild central intrahepatic biliary prominence. The common bile duct measured 7.7 mm on image 22 The kidneys demonstrate normal uptake of contrast media. There are several tiny hypodensities within the right and left kidney corresponding most likely to renal cysts, the largest one lower pole left kidney measuring 1.8 cm on image 38. Grossly the unopacified stomach, small bowel and large bowel demonstrate to be within normal limits. There is no evidence for bowel dilatation/or free air. Fecal residue within the large bowel correspond to mild fecal stasis. The appendix was not visualized. The urinary bladder was partially distended with no gross abnormalities. The uterus demonstrate to be within normal limits. Enhancing structure within the fundus measuring 1.3 cm could correspond to most likely to a fibroid. The aorta demonstrate atherosclerotic disease extending into the aortic bifurcation. There is no retroperitoneal lymphadenopathy. There is no evidence for ascites or an/or significant normal fluid collections. The bone windows demonstrate diffuse bony osteopenia. Degenerative changes bilateral hip joints. Again there is superior endplate compression deformity at L2 and small inferior plate compression deformity at T12. IMPRESSION: Mild fecal stasis. Status post cholecystectomy with mild central intrahepatic biliary prominence. Bilateral renal cysts. 1.3 cm enhancing structure within the fundus of the uterus could correspond to most likely to most likely to most likely to a fibroid. Diffuse bony osteopenia with superior endplate compression deformity at L2 and small inferior plate compression deformity at T12. Physical exam: General: Patient alert, cooperative. Patient afebrile. Patient with dementia. HEENT: Atraumatic Neck: Supple Respiratory: Clear. Currently on room air Cardiovascular: No edema, Normal S1 S2 Capillary refill: <2 Seconds Gastrointestinal: Normal bowel sounds, No masses, No rebound, No guarding, no further tenderness noted Musculoskeletal: No contractures, No erythema, No tenderness Integumentary: No tenderness/swelling Neurological: Normal speech Impression: Acute pancreatitis with leukocytosis, dehydration Myasthenia gravis on chronic steroid Diabetes mellitus type II with hypoglycemia Hypertension Hypothyroidism Dementia Chronic diastolic congestive heart failure COPD Depression with anxiety Plan: Acute pancreatitis with leukocytosis, dehydration: Patient improved. CT scan shows no evidence of pancreatitis. Patient has tolerated her diet. Patient was not wanting to have labs drawn this morning. I came to discussed with the patient the importance of getting lab. Patient willing to provide lab. Continue to advance diet. Will try soft diet this morning. Blood culture positive likely contaminant. Patient does not appear septic. Patient better hydrated. Blood pressure medication heldNorvasc and Lasix. If lab significantly improved and patient tolerating her diet will consider discharge as early as today. Will discuss with . Myasthenia gravis on chronic steroid: Continue medication including melatonin, prednisone, and Imuran Diabetes mellitus type II with hypoglycemia: Encourage oral intake. Continue Accu-Cheks and sliding scale Hypertension: Continue medicationenalapril. Hold Norvasc Hypothyroidism: Continue medicationlevothyroxine Dementia: Continue to monitor closely. Will provide folic acid and thiamine. Chronic diastolic congestive heart failure: Overall stable. No evidence of heart failure noted at this time. Continue to hold Lasix due to dehydration. COPD: Stable, provide as needed medication. Depression with anxiety: Continue Zoloft and Klonopin DVT PPX: Lovenox Code status: Fullhusband is MPOA, patient states at this time she would not want to be resuscitated but she is not oriented, has been aware of this wants to continue with full code at this time but if patient condition changes he may change his mind. We will need to continue to discuss CODE STATUS on ongoing basis with TONO. Discharge Plan: Shelter Time Spent Managing Pts Care (In Minutes): 55
[2021-03-03] MEDS: predniSONE 20 MG TAB PO SCH (09:00)
[2021-03-03] MEDS: ENOXAPARIN 40 MG/0.4 ML SQ SCH (09:00)
[2021-03-03] MEDS: AZATHIOPRINE 50 MG TABLET PO SCH ×2 (09:00→20:28)
[2021-03-03] MEDS ORDERED: predniSONE 20 MG TAB PO SCH (09:00)
[2021-03-03 12:15] LABS: Basophils % 0.8 % (0-1.3); Hematocrit 41.9 % (36.0-45.0); Lymphocytes % 8.2 % (15.3-44.8); MPV 8.7 fL (7.6-11.3); RBC Red Blood Cell Count 4.25 M/uL (3.86-4.86)
[2021-03-03 12:36] LABS: Blood Morphology Comment NOT SEEN (NOT SEEN); Platelet Estimate DECR; White Blood Cell Scan OK (OK)
[2021-03-03 13:25] LABS: Albumin 2.2 g/dL (3.4-5.0); Bilirubin Total 0.3 mg/dL (0.2-1.0); Phosphorus 2.5 mg/dL (2.5-4.9); Potassium 4.8 mmol/L (3.5-5.1); Protein, Total 5.2 g/dL (6.4-8.2); Thyroid Stimulating Hormone 1.45 uIU/mL (0.360-3.740)
[2021-03-03 13:26] LABS: Magnesium 1.9 mg/dL (1.8-2.4)
[2021-03-03] MEDS ORDERED: TRAMADOL HCL 50 MG TAB PO PRN (13:50)
[2021-03-03] MEDS ORDERED: HYDROCODONE/APAP 7.5/325 MG TAB PO PRN (13:50)
[2021-03-03] MEDS: SERTRALINE HCL 50 MG TAB PO SCH (20:22)
[2021-03-03] MEDS ORDERED: INSULIN -REGULAR HUMAN 50 UNIT/0.5 ML ML SQ ONE (23:54)
[2021-03-04] MEDS: LEVOTHYROXINE SOD 0.088 MG TAB PO SCH (05:41)
[2021-03-04] MEDS: PYRIDOSTIGMINE 60 MG TABLET PO SCH ×2 (06:02→14:00)
[2021-03-04] MEDS: INSULIN -REGULAR HUMAN 50 UNIT/0.5 ML ML SQ SCH ×3 (07:30→16:43)
[2021-03-04] MEDS: AZATHIOPRINE 50 MG TABLET PO SCH (08:27)
[2021-03-04] MEDS: ENOXAPARIN 40 MG/0.4 ML SQ SCH (08:28)
[2021-03-04] MEDS: predniSONE 20 MG TAB PO SCH (08:28)
[2021-03-04 08:44] VITALS: O2SAT 98
[2021-03-04] MEDS ORDERED: ROSUVASTATIN 10 MG TAB PO SCH (09:00)
[2021-03-04] MEDS ORDERED: AMLODIPINE 5 MG TAB PO SCH (09:00)
[2021-03-04 10:31] VITALS: BP 152/73
[2021-03-04 12:47] VITALS: TEMP 98.7
--- NOTE | 2021-03-05 18:18 | EKG ---
Test Date: 2021-03-01 Test Time: 23:14:20 Vice President Of Human Resources: ANÍBAL MEASUREMENT RESULTS: Intervals: Rate: 78 DC: 160 QRSD: 92 QT: 376 QTc: 428 [place]: P: -1 DC: 160 QRS: 6 T: 111 INTERPRETIVE STATEMENTS: Normal sinus rhythm Inferior infarct, age undetermined Anterior infarct, age undetermined T wave abnormality, consider lateral ischemia Abnormal ECG Compared to ECG 08/17/2020 19:08:57 T-wave abnormality now present Possible ischemia now present Ventricular premature complex(es) no longer present Myocardial infarct finding still present Electronically Signed On 03-05-21 18:06:58 CDT by Jeet Valles
[2021-03-10] MEDS ORDERED: DRISDOL (VITAMIN D=ERGOCALCIFEROL) 50000 UNIT CAP PO SCH (09:00)
--- NOTE | 2021-03-11 05:03 | P.DS ---
Discharge Date: 03/04/21 Primary Care Provider: Unknown Disposition: HOSPICE-HOME Discharge Condition: GOOD Reason for Admission: Pancreatitis Brief History of Present Illness: 76-year-old female with history of diabetes type 2, myasthenia gravis, hypertension, hypothyroidism presents emergency department for GI upset. Patient currently stays at [facility]. Patient was evaluated in the emergency department, labs were significant for white blood cell count 16 hematocrit 45.5 GFR 89 glucose 64 AST 147 triglycerides 172 cholesterol 253 LDL 161 lipase 1112 procalcitonin 0.06 urinalysis with trace leukoesterase microscopic analysis pending alcohol level less than 10 patient with previous cholecystectomy CT abdomen pelvis demonstrates mild fecal stasis, status post cholecystectomy with mild central intrahepatic biliary prominence, bilateral renal cysts, 1.3 cm Dotson structure within the fundus of the uterus could correspond to most likely fibroid. Patient denies any specific abdominal pain at this time but does have mild generalized abdominal tenderness on exam. Patient disoriented does not know what year it is, when asked where she is she says "[place]". Case was also discussed with patient's who is MPOA plan is for admission for pancreatitis, leukocytosis. CODE STATUS discussed at length, continue with full code at this time but this will be dynamic and based on patient's clinical condition. Hospital Course: Patient's symptoms were not really improving. Family decided to proceed with hospice care. Hospice was arranged and patient was discharged home with hospice care. Vital Signs/Physical Exam: Temp Pulse Resp BP Pulse Ox 98.7 F 73 18 152/73 H 93 03/04/21 12:00 03/04/21 12:00 03/04/21 12:00 03/04/21 12:00 03/04/21 12:00 General: Alert, In no apparent distress, Mild distress, Confused Laboratory Data at Discharge: WBC 11.60 K/uL (4.3-10.9) H D 03/03/21 11:54 Hgb 13.8 g/dL (12.0-15.0) 03/03/21 11:54 Hct 41.9 % (36.0-45.0) 03/03/21 11:54 Plt Count 122 K/uL (152-406) L D 03/03/21 11:54 PT 10.1 SECONDS (9.5-12.5) 03/02/21 00:53 INR 0.88 03/02/21 00:53 Sodium 140 mmol/L (136-145) 03/03/21 11:54 Potassium 4.8 mmol/L (3.5-5.1) 03/03/21 11:54 BUN 14 mg/dL (7-18) 03/03/21 11:54 Creatinine 0.76 mg/dL (0.55-1.3) 03/03/21 11:54 Glucose 235 mg/dL (74-106) H 03/03/21 11:54 Phosphorus 2.5 mg/dL (2.5-4.9) 03/03/21 11:54 Magnesium 1.9 mg/dL (1.8-2.4) 03/03/21 11:54 Total Bilirubin 0.3 mg/dL (0.2-1.0) 03/03/21 11:54 AST 22 U/L (15-37) D 03/03/21 11:54 ALT 30 U/L (12-78) 03/03/21 11:54 Alkaline Phosphatase 89 U/L (45-117) 03/03/21 11:54 Triglycerides 172 mg/dL (<150) H 03/02/21 03:45 Cholesterol 253 mg/dL (<200) H 03/02/21 03:45 HDL Cholesterol 58 mg/dL (40-60) 03/02/21 03:45 Cholesterol/HDL Ratio 4.36 03/02/21 03:45 Lipase 76 U/L (73-393) 03/03/21 11:54 Home Medications: Furosemide [Lasix*] 10 mg PO DAILY 04/14/19 Insulin Aspart [Novolog Flexpen] 10 unit SQ TIDWM 04/14/19 Insulin Detemir [Levemir] 25 units SQ 0700,2000 04/14/19 Levothyroxine [Synthroid*] 88 mcg PO [id number] 04/14/19 Melatonin [Melatonin*] 6 mg PO BEDTIME PRN 04/14/19 Potassium Chloride [Micro-K] 10 meq PO BID 04/14/19 Pyridostigmine [place]anchard [Mestinon*] 1 tab PO 0700,1500,2300 04/14/19 Rosuvastatin Calcium [Crestor] 20 mg PO DAILY 04/14/19 Sertraline HCl 25 mg PO BREAKFAST 04/14/19 predniSONE [Prednisone*] 20 mg PO DAILY 04/14/19 clonazePAM [Klonopin*] 0.5 mg PO BID #60 tab 02/10/20 Ramipril 2.5 mg PO DAILY 03/16/20 Ergocalciferol (Vitamin D2) [Vitamin D2] 1.25 mg PO EVERY 7TH DAY 04/12/20 azaTHIOprine [Azathioprine] 1 tab PO BID 04/12/20 Amlodipine [Norvasc*] 5 mg PO DAILY #30 tab 03/04/21 Hydrocodone 7.5/APAP 325 [[place] 7.5/325 mg*] 1 tab PO Q6H PRN #20 tab 03/04/21 New Medications: Hydrocodone 7.5/APAP 325 [[place] 7.5/325 mg*] 1 tab PO Q6H PRN #20 tab PRN Reason: Pain Scale 5-7 (Moderate) Amlodipine [Norvasc*] 5 mg PO DAILY #30 tab Physician Discharge Instructions: OK TO DC IV AND DC HOSPICE FOLLOW-UP WITH PRIMARY CARE PROVIDER IN 1-[address] or TEXT [address] JOHNSON AT [phone] IF ANY QUESTIONS REGARDING HOSPITAL STAY. PLEASE CALL THE FLOOR AT [phone] IF ANY MEDICATION OR NURSING QUESTIONS Diet: as tolerat Activity: Fall precautions Followup: NONE,NONE [Primary Care Provider] - Time spent managing pt's care (in minutes): 35
== END 2021-03-04 16:56 | disposition hospice, home (50) | DRG 439 ==
LOC: ER 23:09 → ERHOLD 03-02 05:13 → 2ND 03-02 06:03
PROVIDERS: ADMIT Family Medicine; ATTEND Hospitalist
DX: K85.90 Acute pancreatitis without necrosis or infection, unspecified (principal); I13.0 Hypertensive heart and chronic kidney disease with heart failure and stage 1 through stage 4 chronic kidney disease, or unspecified chronic kidney disease; I50.32 Chronic diastolic (congestive) heart failure; G70.00 Myasthenia gravis without (acute) exacerbation; I10 Essential (primary) hypertension; E03.9 Hypothyroidism, unspecified; N28.1 Cyst of kidney, acquired; E11.22 Type 2 diabetes mellitus with diabetic chronic kidney disease; N18.2 Chronic kidney disease, stage 2 (mild); E11.649 Type 2 diabetes mellitus with hypoglycemia without coma; J44.9 Chronic obstructive pulmonary disease, unspecified; E86.0 Dehydration; F41.8 Other specified anxiety disorders; Z79.52 Long term (current) use of systemic steroids
CPT/HCPCS: 36415; 51702; 71045; 74177; 80048; 80053; 80061; 80076; 80320; 81003; 82565; 82947; 83605; 83690; 83735; 84100; 84132; 84145; 84439; 84443; 85025; 85610; 87040; 87077; 87186; 87205; 93005; 96365; 96366; 99285; J1650; J2185; J7030; J7040; J7500; J7512; J7799; Q9967; U0003

== ENCOUNTER 2021-07-12 14:47 | Emergency (ER) | payer OTHER ==
[2021-07-12] MEDS ORDERED: IPRATROPIUM BROM 0.5MG/2.5ML ONE (15:30)
[2021-07-12] MEDS ORDERED: ALBUTEROL 2.5 MG/3 ML NEB SOL ONE (15:30)
[2021-07-12] MEDS ORDERED: LEVALBUTEROL 1.25 MG/3 ML NEB ONE (15:33)
--- OUTSIDE RECORDS SUMMARY | 2021-07-12 15:33 | XMS REPORT | Continuity of Care Document ---
:1945 Author Organization [facility] t Address [address] [place] [address] [place] [address] Care Team Providers Name Role Phone XI MENDOZA Primary Care Physician Unavailable MARIELOS BANGURA Attending Clinician Unavailable RAJIV KENT Attending Clinician Unavailable ROBERT WASHINGTON Attending Clinician Unavailable ROBERT WASHINGTON Attending Clinician Unavailable Noelle DANG Attending Clinician Doctor Unassigned, Name Attending Clinician Unavailable JORGE A Attending Clinician Unavailable NOELLE Attending Clinician Unavailable Marielos Bangura MD Attending Clinician Florian DANG Attending Clinician Robert Washington MD Attending Clinician Paulino Garrido DO Attending Clinician Tres NIÑO, L Attending Clinician Unavailable Van DANG Attending Clinician Hernán DANG Attending Clinician VAN Attending Clinician Unavailable MENDOZA TAYLOR Attending Clinician Unavailable YISSEL OBRIEN Attending Clinician Unavailable SOSA NDIAYE Attending Clinician Unavailable MARIELOS BANGURA Admitting Clinician Unavailable RAJIV KENT Admitting Clinician Unavailable SMART Admitting Clinician Unavailable Hernán DANG Admitting Clinician GISSELLE BLACKMAN Admitting Clinician Unavailable Stacia REECE Admitting Clinician Unavailable JAS EDUARDO Admitting Clinician Unavailable SOSA NDIAYE Admitting Clinician Unavailable Payers Payer Name Policy Type Policy Number Effective Date Expiration Date Ricky clements AETNA MEDICARE ADV [id number] 2019 00:00:00 [employer]ETNA MEDICARE HMO [id number] 2013 POS PPO 00:00:00 Problems Condition Condition Condition Status Onset Resolution Last Treating Co mments Source Name Details Category Date Date Treatment Clinician Date MYASTHENIA Diagnosis Active 2021-06-26 Memoria GRAVIS 06-26 12:56:00 l 00:00: [place] MYASTHENIA 00 GRAVIS Active 06/26/2021 [facility] MYASTHENIA Diagnosis Active 2021-06-28 Memoria GRAVIS 06-26 11:57:00 l G70.00 00:00: [place] MYASTHENIA 00 GRAVIS G70.00 Active 06/26/2021 [facility] GI bleed GI bleed Disease [facility]: [address] Coronary Coronary Disease Active Unive rs artery artery 06-01 ity of disease disease 00:00: [place] involving involving 00 [facility] [place] [facility] coronary coronary artery of artery of [place] with heart with angina angina pectoris pectoris Essential Essential Disease Active Uni vers hypertensi hypertensi 06-01 it y of on on 00:00: [place] 00 [facility] Dyslipidem Dyslipidem Disease Active U nivers ia ia 06-01 ity of 00:00: [place] 00 [facility] Alzheimer' Alzheimer' Disease Active U nivers s disease s disease 06-01 ity of 00:00: [place] [facility] Elevated Elevated Disease Active Unive rs brain brain 06-01 ity of natriureti [place] c peptide c peptide 00 Medi roger (BNP) (BNP) Branch level level Chest pain Chest pain Disease Active 2019-06 U johan 2-27 ity of 00:00: [place] 00 [facility] Atypical Atypical Disease Active 2019-06 Unive rs chest pain chest pain 2-27 it y of 00:00: [place] [facility] MYASTHENIA Diagnosis Active 2020-03-01 Memoria GRAVIS 9-16 21:46:00 l WITH ACUTE 00:00: Berto gomez EXACERBATI MYASTHENIA 00 O GRAVIS WITH ACUTE EXACERBATI O Active 02/15/2020 [facility] Myasthenia Myasthenia Disease Active [facility] - with acute with acute 00:00: Me dical exacerbati exacerbati 00 Ce nter on on C-7,T-4 Diagnosis Active 2019-12-14 Me moria FX,ESOPHAG 6-22 09:22:00 l EAL TEAR C-7,T-4 03:51: Gerda walker FX,ESOPHAG 00 EAL TEAR Active 11/21/2019 [facility] MYASTHENIA Diagnosis Active 2019-03-10 Memoria GRAVIS 9- 22:12:00 l WEAKNESS 00:00: Jorge Alberto MYASTHENIA 00 GRAVIS WEAKNESS Active 02/05/2019 [facility] DIABETIC Diagnosis Active 2018-12-08 M emoria 7-01 05:43:00 l DIABETIC 00:00: Berto n 00 Active 11/29/2018 [facility] DYSPHAGIA Diagnosis Active 2018-09-30 Memoria 4-11 08:27:00 l 00:00: [place] DYSPHAGIA 00 Active 09/09/2018 [facility] RESOLVED Diagnosis Active 2018-09-22 M emoria VISION 4-10 15:15:00 l LOSS IN RESOLVED 00:00: Gerda nn LEFT EYE VISION 00 LOSS IN LEFT EYE Active 09/08/2018 [facility] STROKE Diagnosis Active 2018-08-16 Mem oria SYMPTOMS 3-18 20:18:00 l STROKE 00:00: [place] SYMPTOMS 00 Active 08/16/2018 [facility] SLURRED Diagnosis Active 2018-08-26 Me moria SPEECH 3-18 22:20:00 l SLURRED 00:00: Jorge Alberto SPEECH 00 Active [facility] Myocardial Myocardial Disease Active U nivers infarction infarction 4-12 it y of 00:00: [place] [facility] Trigger Trigger Disease Active [facility] finger finger 9[facility] 00:[facility]: [address] Benign Problem Active 2018-12-01 Memor ia neoplasm -14 21:28:18 l of Benign 00:00: [place] cerebral neoplasm 00 meninges of (disorder) cerebral meninges (disorder) Active 06/14/2012 Problem 12/01/2018 Data migrated from [facility] on 01/23/15. Julia Neuro,[facility], Natasha Acosta [facility] DEHYDRATIO Diagnosis Active 2010-062011-03-27 Memoria N,PAIN 13:56:00 l CONTROL 00:00: [place] DEHYDRATIO 00 N,PAIN CONTROL Active 03/22/2011 [facility] BAD Diagnosis Active 2010-062011-03-22 Mem oria REACTION 06:07:00 l TO BAD 00:00: Jorge Alberto MEDICATION REACTION 00 TO MEDICATION Active 03/22/2011 [facility] LEG CRAMPS Diagnosis Active 2010-062011-03-14 Memoria 0- 04:56:00 l LEG 00:00: [place] CRAMPS 00 Active 03/13/2011 [facility] DEHYDRATIO Diagnosis Active 2010-062011-03-17 Memoria N 0-13 12:08:00 l 00:00: Jorge Alberto DEHYDRATIO 00 N Active 03/13/2011 [facility] SDH Diagnosis Active 2011-03-20 Mem oria 02-24 21:57:00 l SDH 06:00: Jorge Alberto 00 Active 02/24/2011 Rehabilita tion DM - Problem Active 2011-03-27 Memor ia Diabetes 02-18 08:54:23 l mellitus DM - 00:00: Jorge Alberto Diabetes 00 mellitus Active 02/18/2011 Problem 03/27/2011 [facility] HYDROCEPHA Diagnosis Active 2011-03-05 Memoria TANJA 01-31 21:52:00 l 00:00: [place] HYDROCEPHA 00 TANJA Active 01/31/2011 [facility] BRAIN MASS Diagnosis Active 2011-02-20 Memoria 01-30 14:11:00 l BRAIN 06:00: Jorge Alberto MASS 00 Active 01/30/2011 Rehabilita tion LIFE Diagnosis Active 2011-02-20 Mem oria FLIGHT 01-23 14:11:00 l LIFE 00:00: [place] FLIGHT 00 Active 01/23/2011 [facility] BRAIN Diagnosis Active 2011-02-04 Mem oria MASS/AWAKE 01-23 11:31:00 l BRAIN 00:00: [place] MASS/AWAKE 00 Active 01/23/2011 [facility] Myasthenic Problem Resolve 2021-07-01 Memoria crisis d 09:36:47 l (disorder) Berto n Myasthenic crisis (disorder) Resolved Problem 07/01/2021 [facility], DOMONIQUE Azul Diabetes Problem Resolve 2021-07-01 Me moria mellitus d 09:36:47 l type 2 Diabetes Berto n (disorder) mellitus type 2 (disorder) Resolved Problem 07/01/2021 [facility] DOMONIQUE Azul Altered Problem Active 2018-12-01 Kalia aida mental 21:28:18 l status Altered Jorge Alberto (finding) mental status (finding) Active Problem 12/01/2018 Julia Edwards,[facility], [place] Kelly,[facility] Coronary Problem Active 2021-07-01 Mem oria arterioscl 09:36:47 l erosis Coronary Berto n (disorder) arterioscl erosis (disorder) Active Problem 07/01/2021 Julia Edwards,[facility], [place] Azul, [facility] [facility] Craniotomy Problem Active 2018-12-01 M emoria (procedure 21:28:18 l ) Jorge Alberto Craniotomy (procedure ) Active Problem 12/01/2018 Julia Edwards,[facility], [facility] [facility] Hypertensi Problem Active 2021-07-01 M emoria ve 09:36:47 l disorder, [place] systemic Hypertensi arterial ve (disorder) disorder, systemic arterial (disorder) Active Problem 07/01/2021 Julia Edwards,[facility], [place] Azul, [facility] [facility] Hypothyroi Problem Active 2021-07-01 M emoria dism 09:36:47 l (disorder) Berto n Hypothyroi dism (disorder) Active Problem 07/01/2021 Julia Edwards,[facility], DOMON[place] Azul, [facility] Itching Problem Active 2018-12-01 Kalia aida (finding) 21:28:18 l Itching [place] (finding) Active Problem 12/01/2018 [facility] Neuro,[facility], [place] [facility] Intracrani Problem Active 2018-12-01 M emoria al 21:28:18 l meningioma Berto n (disorder) Intracrani al meningioma (disorder) Active Problem 12/01/2018 [facility] Neuro,[facility], [place] [facility] Pain Problem Active 2018-12-01 Memor ia (finding) 21:28:18 l Pain Jorge Alberto (finding) Active Problem 12/01/2018 [facility], [place] [facility] Visual Problem Active 2018-12-01 Memor ia disturbanc 21:28:18 l e Visual [place] (disorder) disturbanc e (disorder) Active Problem 12/01/2018 [facility], [place] [facility] Body mass Problem Active 2021-07-01 Me moria index 40+ 09:36:47 l - severely Body Berto n obese mass index (finding) 40+ - severely obese (finding) Active Problem 07/01/2021 [facility] DOMONIQUE Azul Myasthenia Problem Active 2021-07-01 M emoria gravis 09:36:47 l (disorder) Berto n Myasthenia gravis (disorder) Active Problem 07/01/2021 [facility] OPID Jorge Alberto Recurrent Problem Active 2021-07-01 Me moria falls 09:36:47 l (finding) [place] Recurrent falls (finding) Active Problem 07/01/2021 [facility] OPID [place] Type II Problem Active 2021-07-01 Kalia aida diabetes 09:36:47 l mellitus Type II Gerda nn uncontroll diabetes ed mellitus (finding) uncontroll ed (finding) Active Problem 07/01/2021 [facility] OPICharis Jorge Alberto Altered Problem Active 2011-03-27 Kalia aida mental 08:54:23 l status Altered [place] mental status Active Problem 03/27/2011 [facility] Craniotomy Problem Active 2011-03-27 M emoria 08:54:23 l [place] Craniotomy Active Problem 03/27/2011 [facility] HTN - Problem Active 2011-03-27 Memor ia Hypertensi 08:54:23 l on HTN - [place] Hypertensi on Active Problem 1 [facility] Meningioma Problem Active 2011-03-27 M emoria of brain 08:54:23 l [place] Meningioma of brain Active Problem 03/27/2011 [facility] Visual Problem Active 2011-03-27 Memor ia disturbanc 08:54:23 l e Visual [place] disturbanc e Active Problem 03/27/2011 [facility] Itching Problem Active 2011-03-27 Kalia aida 08:54:23 l Itching [place] Active Problem 03/27/2011 [facility] Pain Problem Active 2011-03-27 Memor ia 08:54:23 l Pain Jorge Alberto Active Problem 03/27/2011 [facility] UNSP DISP Diagnosis Active 2019-12-14 Memoria FX OF 09:22:00 l SEVENTH UNSP [place] CERVICAL DISP FX OF VERTEBR SEVENTH CERVICAL VERTEBR Active [facility] BRAIN Diagnosis Active 2011-02-20 Mem oria NEOPLASM 14:11:00 l NOS BRAIN Jorge Alberto NEOPLASM NOS Active Rehabilita tion ADMINISTRT Diagnosis Active 2011-02-04 Memoria VE ENCOUNT 11:31:00 l NOS [place] ADMINISTRT VE ENCOUNT NOS Active [facility] COMMUNICAT Diagnosis Active 2011-03-05 Memoria HYDROCEPHA 21:52:00 l TANJA [place] COMMUNICAT HYDROCEPHA TANJA Active [facility] SUBDURAL Diagnosis Active 2011-03-20 M emoria HEMORRHAGE 21:57:00 l SUBDURAL Berto n HEMORRHAGE Active Rehabilita tion DEHYDRATIO Diagnosis Active 2011-03-27 Memoria N 13:56:00 l [place] DEHYDRATIO N Active [facility] MYASTHENIA Diagnosis Active 2021-06-28 Memoria GRAVIS 11:57:00 l WITHOUT Jorge Alberto (ACUTE) MYASTHENIA EXACER GRAVIS WITHOUT (ACUTE) EXACER Active [facility] ILLNESS, Diagnosis Active 2018-09-08 M emoria UNSPECIFIE 11:41:00 l D ILLNESS, Berto n UNSPECIFIE D Active [facility] OCULAR Diagnosis Active 2018-09-22 Mem oria PAIN, 15:15:00 l RIGHT EYE OCULAR Gerda nn PAIN, RIGHT EYE Active [facility] UNQUALIFIE Diagnosis Active 2018-09-22 Memoria D VISUAL 15:15:00 l LOSS, LEFT Berto n EYE, ALEXIA UNQUALIFIE D VISUAL LOSS, LEFT EYE, ALEXIA Active [facility] Myasthenia Problem 2021-07-01 M emoria gravis 09:36:47 l without [place] (acute) Myasthenia exacerbati gravis on without (acute) exacerbati on 07/01/2021 [facility] Illness, Problem 2018-09-11 Mem oria unspecifie 23:20:51 l d Illness, Berto n unspecifie d 09/11/2018 [facility] 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:49:25 l syndrome Central Gerda nn at C7 cord level of syndrome cervical at C7 spinal level of cord, cervical initial spinal encounter cord, initial encounter 12/26/2019 [facility] Unspecifie Problem 2019-12-26 M emoria d fracture 07:49:25 l of fourth Jorge Alberto thoracic Unspecifie vertebra, d fracture initial of fourth encounter thoracic for closed vertebra, fracture initial encounter for closed fracture 12/26/2019 [facility] Contusion Problem 2019-12-26 Me moria of other 07:49:25 l specified Jorge Alberto intrathora Contusion cic of other organs, specified initial intrathora encounter cic organs, initial encounter 12/26/2019 [facility] Unspecifie Problem 2019-12-26 M emoria d fracture 07:49:25 l of second Jorge Alberto lumbar Unspecifie vertebra, d fracture initial of second encounter lumbar for closed vertebra, fracture initial encounter for closed fracture 12/26/2019 [facility] Chronic Problem 2019-12-26 Kalia aida systolic 07:49:25 l (congestiv Chronic Her restrepo e) heart systolic failure (congestiv e) heart failure 12/26/2019 [facility] Delirium Problem 2019-12-26 Mem oria due to 07:49:25 l known Delirium Berto n physiologi due to roger known condition physiologi roger condition 12/26/2019 [facility] Acute Problem 2019-12-26 Memor ia posthemorr 07:49:25 l hagic Acute [place] anemia posthemorr hagic anemia 12/26/2019 [facility] Hydrocepha Problem 2019-12-26 M emoria tanja, 07:49:25 l unspecifie Berto n d Hydrocepha tanja, unspecifie d 12/26/2019 [facility] Unspecifie Problem 2019-12-26 M emoria d 07:49:25 l protein-ca Berto n bry Unspecifie malnutriti d on protein-ca bry malnutriti on 12/26/2019 [facility] Body mass Problem 2019-12-26 Me moria index 07:49:25 l (BMI) Body [place] 40.0-44.9, mass index adult (BMI) 40.0-44.9, adult 12/26/2019 [facility] Ventricula Problem 2019-12-26 emoria r 07:49:25 l tachycardi Berto n a Ventricula r tachycardi a 12/26/2019 [facility] Alkalosis Problem 2019-12-26 Ia moria 07:49:25 l Jorge Alberto Alkalosis 12/26/2019 [facility] Encephalop Problem 2019-12-26 M emoria athy, 07:49:25 l unspecifie Berto n d Encephalop athy, unspecifie d 12/26/2019 [facility] Gastrointe Problem 2019-12-26 M emoria stinal 07:49:25 l hemorrhage Berto n , Gastrointe unspecifie stinal d hemorrhage , unspecifie d 12/26/2019 [facility] Unspecifie Problem 2019-12-26 M emoria d 07:49:25 l displaced [place] fracture Unspecifie of sixth d cervical displaced vertebra, fracture initial of sixth encounter cervical for closed vertebra, fracture initial encounter for closed fracture 12/26/2019 [facility] Unspecifie Problem 2019-12-26 M emoria d 07:49:25 l displaced Jorge Alberto fracture Unspecifie of seventh d cervical displaced vertebra, fracture initial of seventh encounter cervical for closed vertebra, fracture initial encounter for closed fracture 12/26/2019 [facility] Unspecifie Problem 2019-12-26 M emoria d 07:49:25 l displaced Jorge Alberto fracture Unspecifie of fourth d cervical displaced vertebra, fracture initial of fourth encounter cervical for closed vertebra, fracture initial encounter for closed fracture 12/26/2019 [facility] Hypothyroi Problem 2019-12-26 M emoria dism, 07:49:25 l unspecifie Berto n d Hypothyroi dism, unspecifie d 12/26/2019 [facility] Old Problem 2019-12-26 Memor ia myocardial 07:49:25 l infarction Old Berto n myocardial infarction 12/26/2019 [facility] Hypertensi Problem 2019-12-26 M emoria ve heart 07:49:25 l disease [place] with heart Hypertensi failure ve heart disease with heart failure 12/26/2019 [facility] Dysphagia, Problem 2019-12-26 M emoria unspecifie 07:49:25 l d Jorge Alberto Dysphagia, unspecifie d 12/26/2019 [facility] Atheroscle Problem 2019-12-26 M emoria rotic 07:49:25 l heart [place] disease of [place] rotic coronary heart artery disease of without [place] angina coronary pectoris artery without angina pectoris 12/26/2019 [facility] Physical Problem 2019-12-26 Mem oria restraint 07:49:25 l status Physical Berto n restraint status 12/26/2019 [facility] Unspecifie Problem 2019-12-26 M emoria d dementia 07:49:25 l without [place] behavioral Unspecifie disturbanc d dementia e without behavioral disturbanc e 12/26/2019 [facility] joint terminal attack controller Problem 2019-12-26 Me moria (current) 07:49:25 l use of Long Jorge Alberto systemic term steroids (current) use of systemic steroids 12/26/2019 [facility] Hypokalemi Problem 2019-12-26 emoria a 07:49:25 l [place] Hypokalemi a 12/26/2019 [facility] Obstructiv Problem 2019-12-26 M emoria e sleep 07:49:25 l apnea Jorge Alberto (adult) Obstructiv (pediatric e sleep ) apnea (adult) (pediatric ) 12/26/2019 [facility] Other Problem 2019-12-26 Memor ia disorders 07:49:25 l of Other [place] phosphorus disorders metabolism of phosphorus metabolism 12/26/2019 [facility] Constipati Problem 2019-12-26 M emoria on, 07:49:25 l unspecifie Berto n d Constipati on, unspecifie d 12/26/2019 [facility] Fall on Problem 2019-12-26 Kalia aida same level 07:49:25 l from Fall on Jorge Alberto slipping, same level tripping from and slipping, stumbling tripping without and subsequent stumbling striking without against subsequent object, striking initial against encounter object, initial encounter 12/26/2019 [facility] Other Problem 2019-12-26 Memor ia acute 07:49:25 l postproced Other Gerda nn ural pain acute postproced ural pain 12/26/2019 [facility] Acute pain Problem 2019-12-26 M emoria due to 07:49:25 l trauma Acute [place] pain due to trauma 12/26/2019 [facility] Major Problem 2019-12-26 Memor ia depressive 07:49:25 l disorder, Major Berto n single depressive episode, disorder, unspecifie single d episode, unspecifie d 12/26/2019 [facility] Abrasion Problem 2019-12-26 Mem oria of right 07:49:25 l upper arm, Abrasion He rmann initial of right encounter upper arm, initial encounter 12/26/2019 [facility] Type 2 Problem 2019-12-26 Memor ia diabetes 07:49:25 l mellitus Type 2 Berto n with diabetes hyperglyce mellitus saloni with hyperglyce saloni 12/26/2019 [facility] Morbid Problem 2019-12-26 Memor ia (severe) 07:49:25 l obesity Morbid Jorge Alberto due to (severe) excess obesity calories due to excess calories 12/26/2019 [facility] Type 2 Problem 2019-12-26 Memor ia diabetes 07:49:25 l mellitus Type 2 Berto n with diabetes hypoglycem mellitus ia without with coma hypoglycem ia without coma 0 [facility] Hyperlipid Problem 2019-12-26 M emoria emia, 07:49:25 l unspecifie Berto n d Hyperlipid emia, unspecifie d 12/26/2019 [facility] Chronic Problem 2019-12-26 Kalia aida obstructiv 07:49:25 l e Chronic [place] pulmonary obstructiv disease, e unspecifie pulmonary d disease, unspecifie d 12/26/2019 [facility] Hypomagnes Problem 2019-12-26 M emoria emia 07:49:25 l [place] Hypomagnes emia 0 [facility] Unqualifie Problem 2019-12-26 M emoria d visual 07:49:25 l loss, [place] right eye, Unqualifie normal d visual vision loss, left eye right eye, normal vision left eye 12/26/2019 [facility] Atheroscle Problem 2019-12-26 M emoria rosis of 07:49:25 l aorta [place] Atheroscle rosis of aorta 12/26/2019 [facility] Spinal Problem 2019-12-26 Memor ia stenosis, 07:49:25 l cervical Spinal Berto n region stenosis, cervical region 12/26/2019 [facility] Repeated Problem 2019-12-26 Mem oria falls 07:49:25 l Repeated Berto n falls 12/26/2019 [facility] Laceration Problem 2019-12-26 M emoria without 07:49:25 l foreign Jorge Alberto body of Laceration right without forearm, foreign initial body of encounter right forearm, initial encounter 12/26/2019 [facility] Presence Problem 2019-12-26 Mem oria of 07:49:25 l cerebrospi Presence He rmann nal fluid of drainage cerebrospi device nal fluid drainage device 12/26/2019 [facility] Personal Problem 2019-12-26 Mem oria history of 07:49:25 l sudden Personal Berto n cardiac history of arrest sudden cardiac arrest 12/26/2019 [facility] History of Problem 2019-12-26 M emoria falling 07:49:25 l History [place] of falling 12/26/2019 [facility] Family Problem 2019-12-26 Memor ia history of 07:49:25 l diabetes Family Berto n mellitus history of diabetes mellitus 12/26/2019 [facility] Personal Problem 2019-12-26 Mem oria history of 07:49:25 l benign Personal Berto n neoplasm history of of the benign brain neoplasm of the brain 12/26/2019 [facility] Other long Problem 2019-12-26 M emoria term 07:49:25 l (current) Other Berto n drug fdc therapy (current) drug therapy 12/26/2019 [facility] Lethargic Problem Inactiv 2011-03-27 M emoria e 08:54:23 l [place] Lethargic Inactive Problem 03/27/2011 [facility] Blindness Problem Resolve 2021-07-01 M emoria of one eye d 09:36:47 l (disorder) Berto patricia Blindness of one eye (disorder) Resolved Problem 07/01/2021 right eye [facility] [place] Edwards,[facility], DOMONIQUE Azul, DOMONIQUE Kelly,[facility] Diabetes Problem Resolve 2021-07-01 Me moria mellitus d 09:36:47 l (disorder) Diabetes He rmann mellitus (disorder) Resolved Problem 07/01/2021 [facility] [place] White [facility], DOMONIQUE Azul, DOMONIQUE [facility] [place] Heart Problem Resolve 2021-07-01 Kalia aida failure d 09:36:47 l (disorder) Heart Gerda nn failure (disorder) Resolved Problem 07/01/2021 systilic [facility], DOMONIQUE Azul, DOMONIQUE Kelly,[facility] Morbid Problem Resolve 2021-07-01 Kalia aida obesity d 09:36:47 l (disorder) Morbid Herm mercy obesity (disorder) Resolved Problem 07/01/2021 [facility] [place] [facility], DOMONIQUE Azul, DOMONIQUE [facility] [place] Obstructiv Problem Resolve 2021-07-01 Memoria e sleep d 09:36:47 l apnea Jorge Alberto syndrome Obstructiv (disorder) e sleep apnea syndrome (disorder) Resolved Problem 07/01/2021 [facility] [place] [facility], DOMONIQUE Azul, DOMONIQUE [facility] [place] Increased Increased Problem Active Uni vers Pressure Pressure ity [place] Physici ans History of History of Problem Resolve Univers hyperlipid hyperlipid d it y of em[place] [facility]ici ans History of History of Problem Resolve Univers essential essential d it[place] of hypertens[place] Physici ans History of History of Problem Resolve Univers meningioma meningioma d it y of [place] [facility] ans Myasthenia Myasthenia Problem Active U nivers gravis in gravis in ity of crisis crisis [place] [facility] Osteoporos Osteoporos Problem Active U nivers is is ity of [place] [facility] Osteopenia Osteopenia Problem Active U nivers [facility]y [facility] [place] [facility] Pneumonia Pneumonia Problem Active Uni vers ity [facility] [place] [facility] Arthritis Arthritis Problem Active Uni vers [facility] [place] [facility] Back pain Back pain Problem Active Uni vers [facility] [place] [facility] Encounter Encounter Problem Active Uni vers for care for care ity of [place] [facility] Ph ysici h h ans Depression Depression Problem Active U nivers ity of [place] [facility] Allergies, Adverse Reactions, Alerts Allergy Allergy Status Severity Reaction(s) Onset Inactive Treating Comm ents Source Name Type Date Date Clinician Phenobar Propensi Active Unknown - 2020- Uni vers bital ty to See comments 07-28 ity of adverse 00:00: [place] reaction 00 Medical s Branch Adhesive Propensi Active Rash 2020- Univer s Tape-Maggie ty to 07-28 ity of icones adverse 00:00: [place] reaction 00 Medical s Branch ADHESIVE DRUG Active Rash 2020- Univers TAPE-MAGGIE - ity of ICONES 00:00: [place] 00 Medical Branch ASPIRIN DRUG Active Other-Cmnt 2020-1 Unive rs INGREDI 2- ity of 00:00: [place] 00 Medical Branch CEFEPIME DRUG Active Unknown-Cmnt 2020-1 Un komal INGREDI 2- ity of 00:00: [place] 00 Medical Branch CIPROFLO DRUG Active Unknown-Cmnt 2020-1 Un komal XACIN INGREDI 2- ity of 00:00: [place] 00 Medical Branch CORTISON DRUG Active Other-Cmnt 2020-1 Univ ers E INGREDI 2- ity of 00:00: [place] 00 Medical Branch ERYTHROM DRUG Active Unknown-Cmnt 2020-1 Un komal YCIN 2-27 ity of 00:00: [place] 00 Medical Branch PENICILL DRUG Active Rash 2020-1 Univers IN INGREDI 2-27 ity of 00:00: [place] 00 Medical Branch PHENOBAR DRUG Active Unknown-Cmnt 2020-1 Un komal BITAL INGREDI 2-27 ity of 00:00: [place] 00 Medical Branch IMMUGLOB DRUG Active Unknown-Cmnt 2020-1 Un komal IN 2-27 ity of 00:00: [place] 00 Medical Branch Aspirin Propensi Active Other - See 2020- Chest Un kmoal ty to comments 2-27 pain ity of adverse 00:00: [place] reaction 00 Medical s Branch Cefepime Propensi Active Unknown - 2019-06 Uni vers ty to See comments 2-27 ity of adverse 00:00: [place] reaction 00 Medical s Branch Ciproflo Propensi Active Unknown - 2019-06 Uni vers xacin ty to See comments 2-27 ity of adverse 00:00: [place] reaction 00 Medical s Branch Cortison Propensi Active Other - See 2019-06 Muscle U nivers e ty to comments 227 spasms ity of adverse 00:00: [place] reaction 00 Medical s Branch Erythrom Propensi Active Unknown - 2019-06 Uni vers ycin ty to See comments 2-27 ity of adverse 00:00: [place] reaction 00 Medical s Branch Immuglob Propensi Active Unknown - 2019-06 IV IG for Univers in ty to See comments 2-27 MG had ity of adverse 00:00: reaction. [place] reaction 00 Patient Medical s tolerates Branch only plasmapha resis does at [facility] Penicill Propensi Active Rash 2019-1 Univer s in ty to 227 ity of adverse 00:00: [place] reaction 00 Medical s Branch GABAPENT Allergy Active High Rash 2020-0 [facility] IN 02-11 00:00: 00 Gabapent Drug Active Rash 2020-[address] [facility] Allergy 02-11 [facility] Medical 00 Center OTHER Allergy Active High Other 2020-0 [facility] 02-10 00:00: 00 Other Propensi Active Other (See 2020-[address] [facility] ty to Comments) 02-10 causes [facility] - adverse 00:00: large Medical reaction 00 blisters Center s b/l legs PENICILL Allergy Active High Rash 2013-0 [facility] INS 02-13 00:00: 00 Penicill Drug Active Rash 2013-[address] [facility] ins Allergy 02-13 [facility] - 00:[facility]: Medical 00 Center CIPROFLO Allergy Active High Anaphylaxis 2013-0 [facility] XACIN 02-10 00:00: 00 LEVOFLOX Allergy Active High Anaphylaxis 2013-0 [facility] ACIN 02-10 00:00: 00 ERYTHROM Allergy Active Other 2014-0 [facility] YCIN 02-10 00:00: 00 SALICYLA Allergy Active Low Rash 2013-0 [facility] KATHRYN 02-10 00:00: 00 Salicyla Drug Active Rash 2014-[address] [facility] kathryn Allergy 02-10 [facility] - 00:00: Medical 00 [place] Ciproflo Drug Active Anaphylaxis [facility] xacin Allergy 02-10 [facility] - 00:[facility]: Medical [place] Erythrom Drug Active Other (See Stomach [facility] ycin Intolera Comments) 02-10 cramping Rosio es - nce 00:00: Medical 00 [place] Levoflox Drug Active Anaphylaxis [facility] acin Allergy 02-10 [facility] - 00:[facility]: Medical 00 [place] penicill penicill Active 2010-06 Memori a ins<sup> ins<sup> 1-14 l 1</sup> 1</sup> 06:00: Jorge Alberto Freitas erythrom erythrom Active 2010-06 Memori a ycin<sup ycin<sup 1-14 l >2</sup> >2</sup> 06:00: Berto Freitas aspirin< aspirin< Active 2010-06 Memori a sup>4</s sup>4</s 1-14 l up> up> 06:00: Jorge Alberto [place] Adhesive Adhesive Active 2010-06 Memori a Tape<sup Tape<sup 1-14 l >4</sup> >4</sup> 06:00: Berto Freitas phenobar phenobar Active 2010-06 Memori a bital bital 1-14 l 06:00: Jorge Alberto [place] Adhesive Adhesive Active 2010-06 Memori a Tape<sup Tape<sup 1-14 l >6</sup> >6</sup> 06:00: Berto Freitas erythrom erythrom Active Memori a ycin ycin l Jorge Alberto penicill penicill Active Memori a ins ins l Jorge Alberto Silk Silk Active Memoria Tape Tape l Jorge Alberto Aspirin Allergy Active Univers TABS to drug ity of (finding [place] ) Physici ans Cefepime Allergy Active Univers HCl SOLN to drug ity of (finding [place] ) Physici ans Erythrom Allergy Active Univers ycin to drug ity of Derivati (finding [place] ves ) Physici ans Penicill Allergy Active Univers ins to drug ity of (finding [place] ) Physici ans PHENobar Allergy Active Univers bital to drug ity of TABS (finding [place] ) Physici ans Cortizon Allergy Active Univers e-10 to drug ity of (finding [place] ) Physici ans ciproflo ciproflo Active Memori a xacin xacin l Jorge Alberto heparin heparin Active Severe Memoria l [place] cefepime cefepime Active Memori a l Jorge Alberto Cortizon Cortizon Active Memori a e-10 e-10 l Jorge Alberto gabapent gabapent Active Memori a in<sup>3 in<sup>3 l </sup> </sup> Jorge Alberto immune immune Active Memoria globulin globulin l intraven intraven Berto n ous<sup> ous<sup> 5</sup> 5</sup> aspirin aspirin Active Memoria l Jorge Alberto Social History Social Habit Start Date Stop Date Quantity Comments Source Exposure to Not sure University of SARS-CoV-2 [place] Medical (event) Branch Social History 2018-08-17 2018-08-17 [facility] ermann 08:45:08 08:45:08 Alcohol intake 2017-02-25 2017-02-[address] [facility] - 00:00:00 00:00:00 non-drinker of Medical Ce nter alcohol (finding) Tobacco use and 2014-02-10 2014-02-[address] [facility]iva kes - exposure 00:00:00 00:00:00 Medical Center Sex Assigned At [birth year] [place] [facility] 00:00:00 00:00:00 Smoking Status Start Date Stop Date Source Never smoked tobacco [facility] Unknown if ever smoked [facility] [place] Medications Ordered Filled Start Stop Current Ordering Indication Dosage Frequency Signature Comments Components Source Medication Medication Date Date Medication? Clinician (SIG) Name Name satnam, Yes Notes: Kalia aida LONGTERM 8.6 MG 06-29 (Same as: l Oral Tablet 15:00: Senokot) He rm Miralax Yes Notes: Memoria 1- Dissolve l 15:00: in 8 oz of [place] 00 water or juice. (Same as: Miralax) Insulin Yes Notes: Memoria regular - (Same as: l 04:36: Humulin R) [place] 00 Roll in palms of hands gently; Do not shake vigorously . WASTE: F/P - Black; E - Municipal Trash Bin Stable for 31 days at room temperatur e Expires in days from ____Date Insulin No Notes: Memoria Lispro 1-29 (Same as: l 00:39: Humalog) [place] 00 Roll in palms of hands gently; Do not shake vigorously . WASTE: F/P - Black; E - Municipal Trash Bin Stable for 28 days at room temperatur e. Expires in days from ____Date Valproic No 500 mg, Memori a Acid 100 06-28 Route: l MG/ML 22:00: IVPB, [place] Injectable 00 ONCALL, Solution Dosing Weight 79.545, kg, Start date: 06/28/21 16:00:00 PRODUCT SAFETY CONSULTANT, Duration: 30 day, Stop date: 07/28/21 15:59:00 PRODUCT SAFETY CONSULTANT Saline No Notes: Memoria Flush 0.9% 06-28 (Same as: l 22:00: BD [place] Posiflush) Valproic No Notes: Memoria Acid 100 06-28 Dilute in l MG/ML 21:35: at least [place] Injectable 50ml D5W Solution or NS. Infusion rate = 20 mg/min (Same As: Depacon) Hazardous Drug Group 3:Reproduc tive risk Hazardous Drug -- Refer to safe handling procedure PPE Matrix Divalproex Yes 500 mg, 1 Me moria Sodium 500 06-28 tab, l MG Enteric 18:00: Route: PO, H ermann Coated 00 Drug form: Tablet ECTAB, [Depakote] Q12H, Dosing Weight 79.545, kg, Start date: 06/28/21 12:00:00 PRODUCT SAFETY CONSULTANT, Duration: 30 day, Stop date: 07/28/21 9:00:00 PRODUCT SAFETY CONSULTANT, Delayed Release tablet, 0 Lidocaine No Notes: Memori a Hydrochlori 06-28 (Same as: l de 10 MG/ML 18:00: Xylocaine) [place] Injectable 00 Solution Saline No Notes: Memoria Flush 0.9% 06-28 (Same as: l 17:12: BD [place] 00 Posiflush) Amlodipine Yes Notes: Memor ia 06-28 (Same as: l 15:00: Norvasc) [place] 00 Lexapro Yes Notes: Memoria -28 (Same as: l 15:00: Lexapro) Furosemide 2021- Yes 20 mg, 1 Mem oria 20 MG Oral -28 tab, l Tablet 15:00: Route: PO, Gerda nn [Lasix] 00 Drug form: TAB, Daily, Dosing Weight 79.545, kg, Start date: 06/28/21 9:00:00 PRODUCT SAFETY CONSULTANT, Duration: 30 day, Stop date: 07/27/21 9:00:00 PRODUCT SAFETY CONSULTANT, 0 Insulin 0 Yes 30 unit, Memori a Glargine 06-28 0.3 mL, l 100 UNT/ML 15:00: Route: Gerda nn Injectable 00 SUB-Q, Solution Drug form: SOLN, Daily, Dosing Weight 79.545, kg, Start date: 06/28/21 9:00:00 PRODUCT SAFETY CONSULTANT, Duration: 30 day, Stop date: 07/27/21 9:00:00 PRODUCT SAFETY CONSULTANT, Infuse over: 0 hr, 0 Thyroxine No 88 Memoria 06-28 microgram, l 15:00: 1 tab, [place] Route: PO, Drug form: TAB, Daily, Dosing Weight 79.545, kg, Start date: 06/28/21 9:00:00 PRODUCT SAFETY CONSULTANT, Duration: 30 day, Stop date: 07/27/21 9:00:00 PRODUCT SAFETY CONSULTANT Prednisone Yes Notes: Memor ia - Take with l 15:00: food. Ramipril Yes Notes: Memoria - (Same l 15:00: as:Altace) Azathioprin Yes 50 mg, 1 Me moria e - tab, l 23:00: Route: PO, Drug form: TAB, BID, Dosing Weight 79.545, kg, Start date: 06/27/21 17:00:00 PRODUCT SAFETY CONSULTANT, Duration: 30 day, Stop date: 07/27/21 9:00:00 PRODUCT SAFETY CONSULTANT, 0 Lyrica Yes Notes: Memoria 1-27 Same as l 23:00: [place] Saline 0 Yes Notes: Memoria Flush 0.9% 06-27 (Same as: l 22:00: BD Posiflush) Clonazepam Yes 0.5 mg, 1 Me moria 06-27 tab, l 19:28: Route: PO, Jorge Alberto 00 Drug form: TAB, Daily, Dosing Weight 79.545, kg, PRN Other -See Comment, Start date: 06/27/21 13:28:00 PRODUCT SAFETY CONSULTANT, Duration: 30 day, Stop date: 07/27/21 13:27:00 PRODUCT SAFETY CONSULTANT, 0 Ativan Yes Notes: Memoria - (Same as: l 19:10: Ativan) Dextrose Yes 12.5 gm, Memor ia 50% Syringe 06-27 25 mL, l (D50W) 19:03: Route: IVP, Drug Form: INJ, Dosing Weight 79.545, kg, PRN, PRN Blood Glucose Results, Start date: 06/27/21 13:03:00 PRODUCT SAFETY CONSULTANT, Duration: 30 day, Stop date: 07/27/21 13:02:00 PRODUCT SAFETY CONSULTANT, 0 Glucagon Yes 1 mg, Memoria 06-27 Route: IM, l 19:03: Drug form: Jorge Alberto 00 PDR/INJ, PRN, Dosing Weight 79.545, kg, PRN Blood Glucose Results, Start date: 06/27/21 13:03:00 PRODUCT SAFETY CONSULTANT, Duration: 30 day, Stop date: 07/27/21 13:02:00 PRODUCT SAFETY CONSULTANT, 0 Insulin Yes Notes: Memoria Lispro 06-27 (Same as: l 19:03: Humalog) Roll in palms of hands gently; Do not shake vigorously . WASTE: F/P - Black; E - Municipal Trash Bin Stable for 28 days at room temperatur e. Expires in days from ____Date Pyridostigm Yes Notes: Kalia aida ine 06-27 (Same as: l 19:00: Mestinon) Lidocaine No Notes: Memori a Hydrochlori 06-27 (Same as: l de 10 MG/ML 16:00: Xylocaine) Solution Saline Yes Notes: Memoria Flush 0.9% 06-27 (Same as: l 15:56: BD [place] 00 Posiflush) Escitalopra Yes 10 mg = 1 M emoria m 10 MG 1-27 tab, PO, l Oral Tablet 15:53: Daily, 0 He rmann [Lexapro] 00 Refill(s) pyridostigm Yes 60 mg = 1 M emoria ine 60 mg 1-27 tab, PO, l oral tablet 15:51: TID, 0 Herm mercy 00 Refill(s) pregabalin Yes 50 mg = 1 Me moria 50 MG Oral 1-27 cap, PO, l Capsule 15:50: BID, 0 [place] [Lyrica] 00 Refill(s) 3 ML Yes 25 unit, Memoria Insulin 1-27 SUB-Q, l Glargine 15:49: Daily, 0 Gerda nn 100 UNT/ML 00 Refill(s) Pen Injector [Basaglar] 3 ML Yes 10 unit, Memoria Insulin, -27 SUB-Q, l Aspart, 15:49: TID-Before Herm mercy Human 100 00 Meals, 0 UNT/ML Pen Refill(s) Injector [NovoLog] potassium Yes 10 mEq = 1 Me moria chloride 10 -27 tab, PO, l mEq oral 15:49: BID, 0 Jorge Alberto tablet, 00 Refill(s) extended release (KCL) azaTHIOprin Yes 50 mg = 1 M emoria e 50 mg 1-27 tab, PO, l oral tablet 15:48: BID, 0 Herm mercy 00 Refill(s) amLODIPine Yes 5 mg = 1 Mem oria 5 mg oral 1-27 tab, PO, l tablet 15:48: Daily, 0 [place] 00 Refill(s) predniSONE Yes 20 mg = 1 Me moria 20 mg oral 1-27 tab, PO, l tablet 15:48: Daily, 0 Jorge Alberto 00 Refill(s) Furosemide Yes 20 mg = 1 Me moria 20 MG Oral 1-27 tab, PO, l Tablet 15:48: Daily, 0 [place] [Lasix] 00 Refill(s) ramipril Yes 2.5 mg = 1 Mem oria 2.5 mg oral 1-27 cap, PO, l capsule 15:47: Daily, 0 Berto n 00 Refill(s) levothyroxi 2021-0 Yes 88 Memori a ne 88 mcg 1-27 microgram l (0.088 mg) 15:46: = 1 tab, Her restrepo oral tablet 00 PO, Daily, 0 Refill(s) clonazePAM 2021-0 Yes 0.5 mg = 1 M emoria 0.5 mg oral 1-27 tab, PO, l tablet 15:41: Daily, 0 Refill(s) Lisinopril 2021-0 No 5 mg, 1 Kalia aida 1-27 tab, l 15:00: Route: GT, Drug form: TAB, Daily, Dosing Weight 79.545, kg, Start date: 06/27/21 9:00:00 PRODUCT SAFETY CONSULTANT, Duration: 30 day, Stop date: 07/26/21 9:00:00 PRODUCT SAFETY CONSULTANT Sertraline 2021-0 No 25 mg, 1 Mem oria 1-27 tab, l 15:00: Route: PO, Drug form: TAB, Daily, Dosing Weight 79.545, kg, Start date: 06/27/21 9:00:00 PRODUCT SAFETY CONSULTANT, Duration: 30 day, Stop date: 07/26/21 9:00:00 PRODUCT SAFETY CONSULTANT Thiamine 2021-0 Yes 200 mg, 2 Kalia aida 1-27 tab, l 15:00: Route: PO, Drug form: TAB, Daily, Dosing Weight 79.545, kg, Start date: 06/27/21 9:00:00 PRODUCT SAFETY CONSULTANT, Duration: 30 day, Stop date: 07/26/21 9:00:00 PRODUCT SAFETY CONSULTANT, 0 Thyroxine 2021-0 Yes 88 Memoria 1-27 microgram, l 12:30: 1 tab, Route: PO, Drug form: TAB, Q630AM, Dosing Weight 79.545, kg, Start date: 06/27/21 6:30:00 PRODUCT SAFETY CONSULTANT, Duration: 30 day, Stop date: 07/26/21 6:30:00 PRODUCT SAFETY CONSULTANT, 0 heparin 2-0 Yes 5,000 Memoria 1-27 unit, 1 l 06:00: mL, Route: SUB-Q, Drug form: INJ, Q8H, Dosing Weight 79.545, kg, Start date: 06/27/21 0:00:00 PRODUCT SAFETY CONSULTANT, Stop date: 07/26/21 16:00:00 PRODUCT SAFETY CONSULTANT, 0 rosuvastati 2-0 Yes 10 mg, 1 Me moria n 1-27 tab, l 03:48: Route: PO, [place] 00 Drug form: TAB, Bedtime, Dosing Weight 79.545, kg, Start date: 06/26/21 21:48:00 PRODUCT SAFETY CONSULTANT, Duration: 30 day, Stop date: 07/26/21 21:00:00 PRODUCT SAFETY CONSULTANT, 0 Clonazepam 2-0 No 0.5 mg, 1 Me moria -27 tab, l 00:28: Route: PO, Drug form: TAB, BID, Dosing Weight 79.545, kg, PRN Anxiety, Start date: 06/26/21 18:28:00 PRODUCT SAFETY CONSULTANT, Duration: 30 day, Stop date: 07/26/21 18:27:00 PRODUCT SAFETY CONSULTANT, 0 pregabalin 2021-0 No 25 mg, 1 Mem oria 06-26 cap, l 23:00: Route: PO, Drug form: CAP, Q8H-01, Dosing Weight 79.545, kg, Start date: 06/26/21 17:00:00 PRODUCT SAFETY CONSULTANT, Duration: 30 day, Stop date: 07/26/21 9:00:00 PRODUCT SAFETY CONSULTANT, 0 Mestinon 2021-0 No 60 mg, 1 Memor ia 06-26 tab, l 23:00: Route: PO, Drug form: TAB, TID, Dosing Weight 79.545, kg, Start date: 06/26/21 17:00:00 PRODUCT SAFETY CONSULTANT, Duration: 30 day, Stop date: 07/26/21 13:00:00 PRODUCT SAFETY CONSULTANT, 0 influenza 2021-0 Yes Notes: Memori a virus 06-26 (Same as: l vaccine, 20:59: Fluzone Berto n inactivated 00 High-Dose high-dose Quad) preservativ For 65 e-free years of intramuscul age of ar older (0.7 suspension ml IM) Shake well before use polyethylen 2020-0 Yes 17g QD Take [address] e glycol 3-23 by mouth [facility] - (GLYCOLAX) 00:00: daily. Medic al 17 gram 00 Center packet polyethylen 2021-0 Yes 17g QD Take [address] e glycol 3-23 by mouth [facility] - (GLYCOLAX) 00:00: daily. Medic al 17 gram 00 Center packet metoprolol Yes 25mg QD Take [address] (TOPROL-XL) 3-22 by mouth Luke s - 25 MG 24 hr 15:52: daily. [facility] roger tablet 11 Center furosemide Yes 40mg QD Take [address] (LASIX) 40 3-22 by mouth [facility] - MG tablet 15:52: daily. Medica l 11 Center ramipril Yes 5mg QD Take [address] [facility] [address] (ALTACE) 5 3-22 by mouth [facility] - MG capsule 15:52: daily. Medic al 11 Center rOPINIRole Yes 2mg QD Take [address] (REQUIP) 2 3-22 by mouth [facility] - MG tablet 15:52: nightly. [facility] roger 11 Center amLODIPine Yes 5mg QD Take [address] (NORVASC) 5 3-22 by mouth Luke s - MG tablet 15:52: daily. Medica l 11 Center benzonatate Yes 200mg Take [address] (TESSALON) 3-22 mg by [facility] - 200 MG 15:52: mouth 3 Medical capsule 11 (three) Center times daily as needed for Cough. diphenhydrA Yes 25mg Take [address] [facility] MINE 3-22 by mouth [facility] - (BENADRYL 15:52: every 6 Medic al ALLERGY) 25 11 (six) Center mg tablet hours as needed. insulin Yes 40U Q.5D Inject 40 [facility] glargine 3-22 Units [facility] - (LANTUS 15:52: subcutaneo Medi roger SOLOSTAR) 11 usly 2 Center 100 unit/mL (two) (3 mL) InPn times daily. DULAGLUTIDE Yes Inject [facility] (TRULICITY 3-22 subcutaneo Rosio es - SUBQ) 15:52: usly every Medica l 11 7 days. Center levothyroxi Yes 88ug Take [address] ne 3-22 mcg by [facility] - (SYNTHROID, 15:52: mouth Medic al LEVOTHROID) 11 Every Center 88 MCG morning on tablet an empty stomach. metFORMIN Yes 500mg Take [address] [facility] [facility] (GLUCOPHAGE 3-22 mg by [facility] - ) 500 MG 15:52: mouth 2 Medica l tablet 11 (two) Center times daily with breakfast and dinner. gabapentin Yes 100mg QD Take [address] (NEURONTIN) 3-22 mg by [facility] - 100 MG 15:52: mouth Medical capsule 11 daily. Center atorvastati Yes 40mg QD Take [address] [facility] n (LIPITOR) 3-22 by mouth Luke s - 40 MG 15:52: daily. Medical tablet 11 Center metoprolol Yes 25mg QD Take [address] (TOPROL-XL) 3-22 by mouth Luke s - 25 MG 24 hr 15:52: daily. Medi roger tablet 11 Center furosemide Yes 40mg QD Take [address] (LASIX) 40 3-22 by mouth [facility] - MG tablet 15:52: daily. Medica l 11 Center ramipril Yes 5mg QD Take [address] [facility] (ALTACE) 5 3-22 by mouth [facility] - MG capsule 15:52: daily. Medic al 11 Center rOPINIRole Yes 2mg QD Take [address] (REQUIP) 2 3-22 by mouth [facility] - MG tablet 15:52: nightly. Medi roger 11 Center amLODIPine Yes 5mg QD Take [address] (NORVASC) 5 3-22 by mouth Luke s - MG tablet 15:52: daily. Medica l 11 Center benzonatate Yes 200mg Take [address] (TESSALON) 3-22 mg by [facility] - 200 MG 15:52: mouth 3 Medical capsule 11 (three) Center times daily as needed for Cough. diphenhydrA Yes 25mg Take [address] [facility] [address] MINE 3-22 by mouth [facility] - (BENADRYL 15:52: every 6 Medic al ALLERGY) 25 11 (six) Center mg tablet hours as needed. insulin Yes 40U Q.5D Inject 40 [facility] glargine 3-22 Units [facility] - (LANTUS 15:52: subcutaneo Medi roger SOLOSTAR) 11 usly 2 Center 100 unit/mL (two) (3 mL) InPn times daily. DULAGLUTIDE Yes Inject [facility] (TRULICITY 3-22 subcutaneo Rosio es - SUBQ) 15:52: usly every Medica l 11 7 days. Center levothyroxi Yes 88ug Take [address] ne 3-22 mcg by [facility] - (SYNTHROID, 15:52: mouth Medic al LEVOTHROID) 11 Every Center 88 MCG morning on tablet an empty stomach. metFORMIN Yes 500mg Take [address] [facility] (GLUCOPHAGE 3-22 mg by [facility] - ) 500 MG 15:52: mouth 2 Medica l tablet 11 (two) Center times daily with breakfast and dinner. gabapentin Yes 100mg QD Take [address] (NEURONTIN) 3-22 mg by [facility] - 100 MG 15:52: mouth Medical capsule 11 daily. Center atorvastati Yes 40mg QD Take [address] [facility] n (LIPITOR) 3-22 by mouth Luke s - 40 MG 15:52: daily. Medical tablet 11 Center senna-docus 2020- No 2{tbl} Q.5D Take [address] ate -22 04-21 tablets by [facility] - (SENOKOT S) 00:00: 23:59 mouth 2 Me dical 8.6-50 mg 00 :00 (two) Center per tablet times daily for 30 days. senna-docus 2020- No 2{tbl} Q.5D Take [address] ate 3-22 04-21 tablets by [facility] - (SENOKOT S) 00:00: 23:59 mouth 2 Me dical 8.6-50 mg 00 :00 (two) Center per tablet times daily for 30 days. sulfamethox 2020- No 160mg{t Q.5D Take [address] azole-trime 08-20 04- rimetho tablet Aviva kes - thoprim 00:00: 23:59 prim} (160 mg of Me dical (BACTRIM 00 :00 trimethopr Cente r DS) 800-160 im total) mg per by mouth 2 tablet (two) times daily for 10 days. metroNIDAZO 2020- No 500mg Q.[id number] Take [address] LE (FLAGYL) 08-20 [id number] tablet [facility] - 500 MG 00:00: 23:59 3D (500 mg Medical tablet 00 :00 total) by Center mouth 3 (three) times daily for 10 days. sulfamethox 2020- No 160mg{t Q.5D Take [address] azole-trime 08-20 rimetho tablet [facility] kes - thoprim 00:00: 23:59 prim} (160 mg of Me dical (BACTRIM 00 :00 trimethopr Cente r DS) 800-160 im total) mg per by mouth 2 tablet (two) times daily for 10 days. metroNIDAZO 2020- No 500mg Q.[id number] Take [address] LE (FLAGYL) 08-20 [id number] tablet [facility] - 500 MG 00:00: 23:59 3D (500 mg Medical tablet 00 :00 total) by Center mouth 3 (three) times daily for 10 days. Nitrofurant No 100mg 100 mg, U nivers oin&Nit. 06-03 Oral, ity of Macrocryst 05:00: 04:15 ONCE, 1 Osman as (MACROBID) 00 :00 dose, Sat Medi roger 100 mg 06/02/20 at [place] capsule 100 2300, mg Routine
Reason for Anti-Infec tive: Empiric Therapy for Suspected Infection< br>Empiric Therapy Site: Urine
D uration of therapy: 72 hours iohexol 2020- No 120mL 120 mL, Unive rs (OMNIPAQUE 06-03 Intravenou it y of 350 03:15: 03:09 s, ONCE, 1 [place] BULK-100 00 :00 dose, Sat Medica l mL) 06/02/20 at [place] injection 2115, 120 mL Routine NaCl 0.9% 2020- No 1000mL at 999 Uni vers (NS) bolus 06-03 mL/hr, ity of infusion 02:15: 05:09 1,000 mL, Osman as 1,000 mL 00 :00 IV Medical Infusion, Branch ONCE, 1 dose, 06/02/20 at 2015, JOSHUA Nitrofurant 2020- No [id number] 100mg Take 1 Univers oin&Nit. 06-02 capsule by ity of Macrocryst 00:00: 05:59 mouth 2 Osman as 100 mg 00 :00 (two) Medical capsule times Branch daily for 10 days. Nitrofurant 2020- No [id number] 100mg Take 1 Univers oin&Nit. 06-02 capsule by ity of Macrocryst 00:00: 05:59 mouth 2 Osman as 100 mg 00 :00 (two) Medical capsule times Branch daily for 10 days. rosuvastati 2019-06 Yes 20mg 20 mg, Univ ers n (CRESTOR) 2-29 Oral, QHS, it y of tablet 20 03:00: First dose [place] mg 00 on [facility] 05/28/20 Branch at 2100, Until Discontinu ed, Routine traMADoL 50 2019-06 Yes 50mg Take 50 mg Univers mg tablet 2-29 by mouth ity of 01:04: every 4 [place] 48 (four) Medical hours as Branch needed. azaTHIOprin 2019-06 Yes 50mg Take 50 mg [facility] e 50 mg 2-29 by mouth 2 ity of tablet 01:04: (two) [place] [address] times Medical daily. Branch melatonin 3 2019-06 Yes 6mg Take 6 mg U nivers mg tablet 2-29 by mouth ity of 01:04: at [place] 48 bedtime. Medical Branch clonazePAM 2019-06 Yes .5mg Take 0.5 Uni vers 0.5 mg 2-29 mg by ity of tablet 01:04: mouth 2 [place] 48 (two) Medical times Branch daily. pyridostigm 2019-06 Yes 60mg Take 60 mg [facility] ine 60 mg 2-29 by mouth 3 ity of tablet 01:04: (three) [place] 48 times Medical daily. Branch insulin 2019-06 Yes inject [facility] aspart Soln 2-29 under the ity of injection 01:04: skin [place] 48 before Medical meals. Branch predniSONE 2019-06 Yes 20mg Take 20 mg U nivers 20 mg 2-29 by mouth ity of tablet 01:04: daily. [place] [address] Medical Branch potassium 2019- Yes 1{tbl} Take 1 Univ ers chloride 2-29 tablet by ity of (KLOR-CON 01:04: mouth 2 [place] 10 ORAL) 48 (two) Medical times Branch daily. amLODIPine 2019-06 Yes 10mg Take 10 mg U nivers 10 mg 2-29 by mouth ity of tablet 01:04: daily. [place] [address] Medical Branch rosuvastati 2019-06 Yes 20mg Take 20 mg [facility] n 20 mg 2-29 by mouth ity of tablet 01:04: daily. [place] [address] Medical Branch levothyroxi 2019-06 Yes 88ug Take 88 Uni vers ne 88 mcg 2-29 mcg by ity of tablet 01:04: mouth [place] 48 every Medical morning. Branch ramipriL 2019-06 Yes 2.5mg Take 2.5 Univ ers 2.5 mg 2-29 mg by ity of capsule 01:04: mouth [place] [address] daily. Medical Branch furosemide 2019-06 Yes 20mg Take 20 mg U nivers 20 mg 2-29 by mouth ity of tablet 01:04: daily. [place] [address] Medical Branch SERTraline 2019-06 Yes 25mg Take 25 mg U nivers 25 mg 2-29 by mouth ity of tablet 01:04: daily. [place] [address] Medical Branch acetaminoph 2019-06 Yes 650mg Take 650 U nivers en 325 mg 2-29 mg by ity of tablet 01:04: mouth [place] 48 every 6 Medical (six) Branch hours as needed for Pain (scale 1-3). traMADoL 50 2019-06 Yes 50mg Take 50 mg [facility] mg tablet 2-29 by mouth ity of 01:04: every 4 [place] 48 (four) Medical hours as Branch needed. azaTHIOprin 2019-06 Yes 50mg Take 50 mg [facility] e 50 mg 2-29 by mouth 2 ity of tablet 01:04: (two) [place] [address] times Medical daily. Branch melatonin 3 2019-06 Yes 6mg Take 6 mg U nivers mg tablet 2-29 by mouth ity of 01:04: at [place] 48 bedtime. Medical Branch clonazePAM 2019-06 Yes .5mg Take 0.5 Uni vers 0.5 mg 2-29 mg by ity of tablet 01:04: mouth 2 [place] 48 (two) Medical times Branch daily. pyridostigm 2019-06 Yes 60mg Take 60 mg [facility] ine 60 mg 2-29 by mouth 3 ity of tablet 01:04: (three) [place] [address] times Medical daily. Branch insulin 2019-06 Yes inject [facility] aspart Soln 2-29 under the ity of injection 01:04: skin [place] 48 before Medical meals. Branch predniSONE 2019-06 Yes 20mg Take 20 mg U nivers 20 mg 2-29 by mouth ity of tablet 01:04: daily. [place] [address] Medical Branch potassium 2019-06 Yes 1{tbl} Take 1 Univ ers chloride 2-29 tablet by ity of (KLOR-CON 01:04: mouth 2 [place] 10 ORAL) 48 (two) Medical times Branch daily. amLODIPine 2019-06 Yes 10mg Take 10 mg U nivers 10 mg 2-29 by mouth ity of tablet 01:04: daily. [place] [address] Medical Branch rosuvastati 2019-06 Yes 20mg Take 20 mg [facility] n 20 mg 2-29 by mouth ity of tablet 01:04: daily. [place] [address] Medical Branch levothyroxi 2019-06 Yes 88ug Take 88 Uni vers ne 88 mcg 2-29 mcg by ity of tablet 01:04: mouth [place] [address] every Medical morning. Branch ramipriL 2019-06 Yes 2.5mg Take 2.5 Univ ers 2.5 mg 2-29 mg by ity of capsule 01:04: mouth [place] 48 daily. Medical Branch furosemide 2019-06 Yes 20mg Take 20 mg U nivers 20 mg 2-29 by mouth ity of tablet 01:04: daily. [place] [address] Medical Branch SERTraline 2019-06 Yes 25mg Take 25 mg U nivers 25 mg 2-29 by mouth ity of tablet 01:04: daily. [place] [address] Medical Branch acetaminoph 2019-06 Yes 650mg Take 650 U nivers en 325 mg 2-29 mg by ity of tablet 01:04: mouth [place] 48 every 6 Medical (six) Branch hours as needed for Pain (scale 1-3). traMADoL 50 2019-06 Yes 50mg Take 50 mg [facility] mg tablet 2-29 by mouth ity of 01:04: every 4 [place] 48 (four) Medical hours as Branch needed. azaTHIOprin 2019-06 Yes 50mg Take 50 mg [facility] e 50 mg 2-29 by mouth 2 ity of tablet 01:04: (two) [place] 48 times Medical daily. Branch traMADoL 50 2019-06 Yes 50mg Take 50 mg [facility] mg tablet 2-29 by mouth ity of 01:04: every 4 [place] 48 (four) Medical hours as Branch needed. azaTHIOprin 2019-06 Yes 50mg Take 50 mg [facility] e 50 mg 2-29 by mouth 2 ity of tablet 01:04: (two) [place] [address] times Medical daily. Branch melatonin 3 2019-06 Yes 6mg Take 6 mg U nivers mg tablet 2-29 by mouth ity of 01:04: at [place] [address] bedtime. Medical Branch clonazePAM 2019-06 Yes .5mg Take 0.5 Uni vers 0.5 mg 2-29 mg by ity of tablet 01:04: mouth 2 [place] 48 (two) Medical times Branch daily. pyridostigm 2019-06 Yes 60mg Take 60 mg [facility] ine 60 mg 2-29 by mouth 3 ity of tablet 01:04: (three) [place] [address] times Medical daily. Branch insulin 2019-06 Yes inject [facility] aspart Soln 2-29 under the ity of injection 01:04: skin [place] [address] before Medical meals. Branch predniSONE 2019-06 Yes 20mg Take 20 mg U nivers 20 mg 2-29 by mouth ity of tablet 01:04: daily. [place] [address] Medical Branch potassium 2019-06 Yes 1{tbl} Take 1 Univ ers chloride 2-29 tablet by ity of (KLOR-CON 01:04: mouth 2 [place] 10 ORAL) 48 (two) Medical times Branch daily. amLODIPine 2019-06 Yes 10mg Take 10 mg U nivers 10 mg 2-29 by mouth ity of tablet 01:04: daily. [place] [address] Medical Branch melatonin 3 2019-06 Yes 6mg Take 6 mg U nivers mg tablet 2-29 by mouth ity of 01:04: at [place] [address] bedtime. Medical Branch rosuvastati 2019-06 Yes 20mg Take 20 mg [facility] n 20 mg 2-29 by mouth ity of tablet 01:04: daily. [place] [address] Medical Branch levothyroxi 2019-06 Yes 88ug Take 88 Uni vers ne 88 mcg 2-29 mcg by ity of tablet 01:04: mouth [place] [address] every Medical morning. Branch ramipriL 2019-06 Yes 2.5mg Take 2.5 Univ ers 2.5 mg 2-29 mg by ity of capsule 01:04: mouth [place] [address] daily. Medical Branch furosemide 2019-06 Yes 20mg Take 20 mg U nivers 20 mg 2-29 by mouth ity of tablet 01:04: daily. [place] [address] Medical Branch SERTraline 2019-06 Yes 25mg Take 25 mg U nivers 25 mg 2-29 by mouth ity of tablet 01:04: daily. [place] [address] Medical Branch acetaminoph 2019- Yes 650mg Take 650 U nivers en 325 mg 2-29 mg by ity of tablet 01:04: mouth [place] 48 every 6 Medical (six) Branch hours as needed for Pain (scale 1-3). traMADoL 50 2019-06 Yes 50mg Take 50 mg [facility] mg tablet 2-29 by mouth ity of 01:04: every 4 [place] 48 (four) Medical hours as Branch needed. azaTHIOprin 2019-06 Yes 50mg Take 50 mg [facility] e 50 mg 2-29 by mouth 2 ity of tablet 01:04: (two) [place] [address] times Medical daily. Branch clonazePAM 2019-06 Yes .5mg Take 0.5 Uni vers 0.5 mg 2-29 mg by ity of tablet 01:04: mouth 2 [place] [address] (two) Medical times Branch daily. melatonin 3 2019-06 Yes 6mg Take 6 mg U nivers mg tablet 2-29 by mouth ity of 01:04: at [place] [address] bedtime. Medical Branch clonazePAM 2019-06 Yes .5mg Take 0.5 Uni vers 0.5 mg 2-29 mg by ity of tablet 01:04: mouth 2 [place] [address] (two) Medical times Branch daily. pyridostigm 2019- Yes 60mg Take 60 mg [facility] ine 60 mg 2-29 by mouth 3 ity of tablet 01:04: (three) [place] [address] times Medical daily. Branch insulin 2019-06 Yes inject [facility] aspart Soln 2-29 under the ity of injection 01:04: skin [place] [address] before Medical meals. Branch predniSONE 2019-06 Yes 20mg Take 20 mg U nivers 20 mg 2-29 by mouth ity of tablet 01:04: daily. [place] [address] Medical Branch potassium 2019- Yes 1{tbl} Take 1 Univ ers chloride 2-29 tablet by ity of (KLOR-CON 01:04: mouth 2 [place] [address] ORAL) (two) Medical times Branch daily. amLODIPine 2019- Yes 10mg Take 10 mg U nivers 10 mg 2-29 by mouth ity of tablet 01:04: daily. [address] Branch rosuvastati 2019-06 Yes 20mg Take 20 mg [facility] n 20 mg 2-29 by mouth ity of tablet 01:04: daily. [place] [address] Medical Branch levothyroxi 2019- Yes 88ug Take 88 Uni vers ne 88 mcg 2-29 mcg by ity of tablet 01:04: mouth [place] 48 every Medical morning. Branch ramipriL 2019- Yes 2.5mg Take 2.5 Univ ers 2.5 mg 2-29 mg by ity of capsule 01:04: mouth [place] 48 daily. Medical Branch pyridostigm 2019- Yes 60mg Take 60 mg [facility] ine 60 mg 2-29 by mouth 3 ity of tablet 01:04: (three) [place] times Medical daily. Branch furosemide 2019- Yes 20mg Take 20 mg U nivers 20 mg 2-29 by mouth ity of tablet 01:04: daily. [place] [address] Medical Branch SERTraline 2019-06 Yes 25mg Take 25 mg U nivers 25 mg 2-29 by mouth ity of tablet 01:04: daily. [place] [address] Medical Branch acetaminoph 2019- Yes 650mg Take 650 U nivers en 325 mg 2-29 mg by ity of tablet 01:04: mouth [place] 48 every 6 Medical (six) Branch hours as needed for Pain (scale 1-3). insulin 2019- Yes inject [facility] aspart Soln 2-29 under the ity of injection 01:04: skin [place] 48 before Medical meals. Branch predniSONE 2019- Yes 20mg Take 20 mg U nivers 20 mg 2-29 by mouth ity of tablet 01:04: daily. [address] Branch potassium 2019- Yes 1{tbl} Take 1 Univ ers chloride 2-29 tablet by ity of (KLOR-CON 01:04: mouth 2 [place] 10 ORAL) 48 (two) Medical times Branch daily. amLODIPine 2019- Yes 10mg Take 10 mg U nivers 10 mg 2-29 by mouth ity of tablet 01:04: daily. [address] Branch rosuvastati 2019- Yes 20mg Take 20 mg [facility] n 20 mg 2-29 by mouth ity of tablet 01:04: daily. [place] [address] Medical Branch levothyroxi 2019- Yes 88ug Take 88 Uni vers ne 88 mcg 2-29 mcg by ity of tablet 01:04: mouth [place] 48 every Medical morning. Branch ramipriL 2019- Yes 2.5mg Take 2.5 Univ ers 2.5 mg 2-29 mg by ity of capsule 01:04: mouth [place] [address] daily. Medical Branch furosemide 2019-06 Yes 20mg Take 20 mg U nivers 20 mg 2-29 by mouth ity of tablet 01:04: daily. [place] [address] Medical Branch SERTraline 2019-06 Yes 25mg Take 25 mg U nivers 25 mg 2-29 by mouth ity of tablet 01:04: daily. [place] [address] Medical Branch acetaminoph 2019-06 Yes 650mg Take 650 U nivers en 325 mg 2-29 mg by ity of tablet 01:04: mouth [place] [address] every 6 Medical (six) Branch hours as needed for Pain (scale 1-3). clindamycin 2019-06 2020- No 300mg Take 300 Univers 300 mg 2-28 12-28 mg by ity of capsule 20:17: 00:00 mouth 3 [place] 25 :00 (three) Medical times Branch daily. sulfamethox 2019-06 2020- No 1{tbl} Take 1 U nivers azole-trime 2-28 12-28 tablet by it y of thoprim 20:17: 00:00 mouth 2 [place] 800-160 mg 25 :00 (two) Medical per tablet times Branch daily. guaifenesin 2019-06 2020- No 10mL Take 10 mL Univers /dextrometh 2-28 12-28 by mouth. it y of orphan 20:17: 00:00 [place] (LORI 25 :00 Medical DM ORAL) Branch Acetaminoph 2019-06 2020- No 2{capsu Take 2 Univers en 500 mg 2-28 12-28 le} capsules ity o f Cap 20:17: 00:00 by mouth [place] 25 :00 at Medical bedtime. Branch traMADoL 50 2019-06 Yes 50mg Take 50 mg [facility] mg tablet 2-28 by mouth ity of 19:04: every 4 [place] [address] (four) Medical hours as Branch needed. azaTHIOprin 2019- Yes 50mg Take 50 mg [facility] e 50 mg 2-28 by mouth 2 ity of tablet 19:04: (two) [place] [address] times Medical daily. Branch melatonin 3 2019- Yes 6mg Take 6 mg U nivers mg tablet 2-28 by mouth ity of 19:04: at [place] [address] bedtime. Medical Branch clonazePAM 2019-06 Yes .5mg Take 0.5 Uni vers 0.5 mg 2-28 mg by ity of tablet 19:04: mouth 2 [place] 48 (two) Medical times Branch daily. pyridostigm 2019- Yes 60mg Take 60 mg [facility] ine 60 mg 2-28 by mouth 3 ity of tablet 19:04: (three) [place] [address] times Medical daily. Branch insulin 2019-06 Yes inject [facility] aspart Soln 2-28 under the ity of injection 19:04: skin [place] [address] before Medical meals. Branch predniSONE 2019-06 Yes 20mg Take 20 mg U nivers 20 mg 2-28 by mouth ity of tablet 19:04: daily. [place] [address] Medical Branch potassium 2019- Yes 1{tbl} Take 1 Univ ers chloride 2-28 tablet by ity of (KLOR-CON 19:04: mouth 2 [place] 10 ORAL) (two) Medical times Branch daily. amLODIPine 2019-06 Yes 10mg Take 10 mg U nivers 10 mg 2-28 by mouth ity of tablet 19:04: daily. [place] [address] Medical Branch rosuvastati 2019-06 Yes 20mg Take 20 mg Univers n 20 mg 2-28 by mouth ity of tablet 19:04: daily. [place] [address] Medical Branch levothyroxi 2019-06 Yes 88ug Take 88 Uni vers ne 88 mcg 2-28 mcg by ity of tablet 19:04: mouth [place] [address] every Medical morning. Branch ramipriL 2019-06 Yes 2.5mg Take 2.5 Univ ers 2.5 mg 2-28 mg by ity of capsule 19:04: mouth [place] [address] daily. Medical Branch furosemide 2019-06 Yes 20mg Take 20 mg U nivers 20 mg 2-28 by mouth ity of tablet 19:04: daily. [place] [address] Medical Branch SERTraline 2019-06 Yes 25mg Take 25 mg U nivers 25 mg 2-28 by mouth ity of tablet 19:04: daily. [place] [address] Medical Branch acetaminoph 2019-06 Yes 650mg Take 650 U nivers en 325 mg 2-28 mg by ity of tablet 19:04: mouth [place] [address] every 6 Medical (six) Branch hours as needed for Pain (scale 1-3). sulfur 2020- 2020- No 5mL 5 mL, Univers hexafluorid -28 05- Intravenou i ty of e microsphr 16:30: 16:25 s, ONCE, 1 [place] (LUMASON) 00 :00 dose, Mon Medic al injection 5 05/28/20 Bran ch mL at 1030, Routine
[employer] membership advisors approving Restricted medication : GISELE FRANCISCO SERTraline 2019- Yes 25mg 25 mg, Unive rs (ZOLOFT) 2-28 Oral, ity of tablet 25 15:00: DAILY, [place] mg 00 First dose Medical on [facility] 05/28/20 at 0900, Until Discontinu ed, Routine furosemide 2019- Yes 20mg 20 mg, Unive rs (LASIX) 2-28 Oral, ity of tablet 20 15:00: DAILY, [place] mg 00 First dose Medical on [facility] 05/28/20 at 0900, Until Discontinu ed, Routine lisinopriL 2019- Yes 2.5mg 2.5 mg, Uni vers (PRINIVIL,Z 2- Oral, ity of ESTRIL) 15:00: DAILY, [place] tablet 2.5 00 First dose Med ical mg on [facility] 05/28/20 at 0900, Until Discontinu ed, Routine amLODIPine 2019- Yes 10mg 10 mg, Unive rs (NORVASC) 2- Oral, ity of tablet 10 15:00: DAILY, [place] mg 00 First dose Medical on [facility] 05/28/20 at 0900, Until Discontinu ed, Routine KCL 2019-06 Yes 10meq 10 mEq, Univers (KLOR-CON 2- Oral, ity of M10) tablet 15:00: DAILY, [place] 10 mEq 00 First dose Medical on [facility] 05/28/20 at 0900, Until Discontinu ed, Routine predniSONE 2019- Yes 20mg 20 mg, Unive rs (DELTASONE) 2- Oral, ity of tablet 20 15:00: DAILY, [place] mg 00 First dose Medical on [facility] 05/28/20 at 0900, Until Discontinu ed, Routine azaTHIOprin 2019- Yes 50mg 50 mg, Univ ers e (IMURAN) 2- Oral, BID, ity of tablet 50 14:00: First dose [place] mg 00 (after Medical last Branch modificati on) on [facility] 05/28/20 at 0800, Until Discontinu ed, Routine heparin 2020- Yes 5000U 5,000 Univers (porcine) 2- Units, ity of injection 14:00: Subcutaneo [place] 5,000 Units 00 us, BID, Medi roger First dose Branch on 05/28/20 at 0800, Until Discontinu ed, Routine Sliding 2019-06 Yes Subcutaneo Univ ers Scale 2-28 us, TID ity of Insulin - 14:00: MEALS+HS, [place] as Lispro 00 First dose Medical (HumaLOG) + on Mon Branch [facility] 05/28/20 Testing at 0800, Until Discontinu ed, Routine pyridostigm 2019-06 Yes 60mg 60 mg, Univ ers ine 2-28 Oral, Q8H, ity of (MESTINON) 12:00: First dose [place] tablet 60 00 on Mon Medical mg 05/28/20 Branch at 0600, Until Discontinu ed, Routine levothyroxi 2019-06 Yes 88ug 88 mcg, Uni vers ne 07-29 Oral, ity of (SYNTHROID) 12:00: QAM-0600, [place] tablet 88 00 First dose Medi roger mcg on Mon Branch 05/28/20 at 0600, Until Discontinu ed, Routine clonazePAM 2019-06 Yes .5mg 0.5 mg, Univ ers (KLONOPIN) 2- Oral, BID, ity of tablet 0.5 05:15: First dose [place] mg 00 (after Medical last Branch modificati on) on 05/27/20 at 2315, Until Discontinu ed, Routine traMADoL 2019-06 Yes 50mg 50 mg, Univers (ULTRAM) 07-29 Oral, ity of tablet 50 04:47: Q6HPRN, [place] mg 58 Starting Medical [facility] 05/27/20 at 2247, Until Discontinu ed, Routine, Pain (scale 4-6) acetaminoph 2019-06 Yes 650mg 650 mg, Un komal en 07-29 Oral, ity of (TYLENOL) 04:25: Q6HPRN, [place] tablet 650 45 Starting Medic al mg [facility] 05/27/20 at 2225, Until Discontinu ed, Routine, Pain (scale 1-3) isosorbide 2019-06- No [id number] 30mg Take 1 [facility] mononitrate 07-29 tablet by it y of 30 mg 24 hr 00:00: 05:59 mouth [place] tablet 00 :00 daily for Medical 30 days. Branch ferrous 2019-06- No [id number] 325mg Take 1 Un komal sulfate 325 07-29 tablet by it y of mg (65 mg 00:00: 05:59 mouth 2 [place] iron) 00 :00 (two) Medical tablet times Branch daily for 30 days. isosorbide 2019-06 No [id number] 30mg Take 1 [facility] mononitrate 07-29 tablet by it y of 30 mg 24 hr 00:00: 05:59 mouth [place] tablet 00 :00 daily for Medical 30 days. Branch ferrous 2019-06- No [id number] 325mg Take 1 Un komal sulfate 325 07-29 tablet by it y of mg (65 mg 00:00: 05:59 mouth 2 [place] iron) 00 :00 (two) Medical tablet times Branch daily for 30 days. isosorbide 2019-06 No [id number] 30mg Take 1 [facility] mononitrate 07-29 tablet by it y of 30 mg 24 hr 00:00: 05:59 mouth [place] tablet 00 :00 daily for Medical 30 days. Branch ferrous 2019-06 No [id number] 325mg Take 1 Un komal sulfate 325 07-29 tablet by it y of mg (65 mg 00:00: 05:59 mouth 2 [place] iron) 00 :00 (two) Medical tablet times Branch daily for 30 days. isosorbide 2019-06- No [id number] 30mg Take 1 Univers mononitrate 07-29 tablet by it y of 30 mg 24 hr 00:00: 05:59 mouth [place] tablet 00 :00 daily for Medical 30 days. Branch ferrous 2019-06- No [id number] 325mg Take 1 Un komal sulfate 325 07-29 tablet by it y of mg (65 mg 00:00: 05:59 mouth 2 [place] iron) 00 :00 (two) Medical tablet times Branch daily for 30 days. nitroglycer 2019-06- No [id number] .4mg Place 1 Univers in 0.4 mg 07-29 tablet ity of sublingual 00:00: 05:59 under the [place] tablet 00 :00 tongue Medical every 5 Branch (five) minutes as needed for Chest pain for up to 28 days. nitroglycer 2019-06- No [id number] .4mg Place 1 Univers in 0.4 mg 07-29 tablet ity of sublingual 00:00: 05:59 under the [place] tablet 00 :00 tongue Medical every 5 Branch (five) minutes as needed for Chest pain for up to 28 days. nitroglycer 2019-06- No [id number] .4mg Place 1 Univers in 0.4 mg 07-29 tablet ity of sublingual 00:00: 05:59 under the [place] tablet 00 :00 tongue Medical every 5 Branch (five) minutes as needed for Chest pain for up to 28 days. nitroglycer 2019-06- No [id number] .4mg Place 1 Univers in 0.4 mg 07-29 tablet ity of sublingual 00:00: 05:59 under the [place] tablet 00 :00 tongue Medical every 5 Branch (five) minutes as needed for Chest pain for up to 28 days. iohexol 2019-06- No 120mL 120 mL, Unive rs (OMNIPAQUE 07-29 Intravenou it y of 350 00:00: 23:52 s, ONCE, 1 [place] BULK-150 00 :00 dose, [facility] mL) 05/27/20 Branch injection at 1800, 120 mL Routine azaTHIOprin azaTHIOprin 2019-06 Yes SUUR Q0.5D Take 1 Univers e 50 MG e 50 MG 0 BILICILER tablet by ity of Oral Tablet Oral Tablet 00:00: M.D. mouth [place] 00 twice a Physici day ans lansoprazol 2019- Yes 30 mg = 10 Memoria e 3 mg/mL 02-26 mL, PO, l oral 15:50: BID-Before [place] suspension 00 Meals, # 600 mL, 0 Refill(s) pregabalin Yes 25 mg = 1 Me moria 25 mg oral 02-26 cap, PO, l capsule 15:45: Q8H-01, 0 Gerda nn 00 Refill(s) Sulfamethox 2020-0 No 1 tab, PO, Memoria azole 800 02-26 [id number], X l MG / 15:45: 1 day, # 2 [place] Trimethopri 00 tab, 0 m 160 MG Refill(s) Oral Tablet [Bactrim] predniSONE Yes 20 mg = 1 Me moria 20 mg oral 02-26 tab, PO, l tablet 15:45: Daily, X Jorge Alberto 00 21 day, # 21 tab, 0 Refill(s) Insulin 2020-0 Yes 20 unit, Memori a Glargine 02-26 SUB-Q, l 100 UNT/ML 15:45: BID, # 10 [place] Injectable 00 mL, 0 Solution Refill(s) lisinopril 2020-0 Yes 5 mg = 1 Mem oria 5 mg oral 02-26 tab, GT, l tablet 15:17: Daily, 0 [place] 00 Refill(s) Sulfamethox 2020-0 No 1 tab, PO, Memoria azole 800 02-26 [id number], 0 l MG / 15:17: Refill(s) Jorge Alberto Trimethopri 00 m 160 MG Oral Tablet [Bactrim] Insulin 2019-0 No 15 unit, Memori a Glargine 02-26 SUB-Q, l 100 UNT/ML 15:17: BID, 0 Gerda nn Injectable 00 Refill(s) Solution thiamine 2020-0 Yes 200 mg = 2 Mem oria 100 mg oral 02-26 tab, PO, l tablet 15:17: Daily, 0 [place] Alber[place] 00 Refill(s) rosuvastati 2020-0 Yes 10 mg = 1 M emoria n 10 mg 02-26 tab, PO, l oral tablet 15:17: Bedtime, 0 [place] Alberto 00 Refill(s) predniSONE 2020-0 No 20 mg = 1 Me moria 20 mg oral 02-26 tab, PO, l tablet 15:17: Daily, 0 [place] Alberto 00 Refill(s) Calcium 2020-0 No 500 mL, Memoria [...] Notes: Memoria 02-25 porcine l 02:00: heparin [place] 00 heparin 2019- Yes Route: Memoria 02-24 MISC, Drug l 15:44: form: INJ, [place] 00 ONCE, Dosing Weight 84.545, kg, Please [...] 9:32:00 CDT, Indication : Plasmapher esis Calcium 2019- No 2.5 gm, Memoria Gluconate 02-24 Route: IV, l 14:32: ONCE, [place] Dosing Weight 84.545, kg, Start date: 02/25/20 [...] Dosing Oral Tablet Weight [Bactrim] 84.545, kg, [id number], Start date: 02/22/20 20:00:00 CDT, Stop date: 02/28/20 8:00:00 CDT, 0 insulin 2019-0 No 30 unit, Memori a glargine 02-21 Route: l 14:00: SUB-Q, [place] 00 Drug form: SOLN, BID, Start date: 02/22/20 9:00:00 CDT, Duration: 30 day, Stop date: 03/22/20 17:00:00 CDT, 0 Lactated 2019-0 No 1,000 mL, Kalia aida Ringers IV 02-21 Rate: 100 l 1,000 mL 12:37: ml/hr, Jorge Alberto Infuse over: 10 hr, Route: IV, Dosing Weight 84.545 kg, Total Volume: 1,000, Start date: 02/22/20 7:37:00 CDT, Duration: 30 day, Stop date: 03/23/20 7:36:00 CDT, 1.91, m2, 0 Insulin 2020-0 No Notes: Memoria Lispro 02-21 (Same as: l 12:30: Humalog) Roll in palms of hands gently; Do not shake vigorously . WASTE: F/P - Black; E - [employer] Trash Bin Stable for 28 days at room temperatur e. Expires in days from ____Date Insulin 2020-0 No 10 unit, Memori a Glargine 02-21 Route: l 100 UNT/ML 02:00: SUB-Q, Gerda nn Injectable 00 ONCE, Solution Dosing [Lantus] Weight 84.545, kg, Start date: 02/21/20 21:00:00 CDT, Stop date: 02/21/20 21:00:00 CDT D-50-W 2020-0 No 12.5 gm, Memoria 02-21 25 mL, l 01:57: Route: [place] IVP, Drug Form: INJ, Dosing Weight 84.545, kg, PRN, PRN Blood Glucose Results, Start date: 02/21/20 20:57:00 CDT, Duration: 30 day, Stop date: 03/22/20 20:56:00 CDT, 0 Glucagon 2019-0 No 1 mg, Memoria 02-21 Route: IM, l 01:57: Drug form: [place] PDR/INJ, PRN, Dosing Weight 84.545, kg, PRN Blood Glucose Results, Start date: 02/21/20 20:57:00 CDT, Duration: 30 day, Stop date: 03/22/20 20:56:00 CDT, 0 Insulin 2019- No Notes: [place] Lispro 02-21 (Same as: l 01:57: Humalog) [...] human 5% 02-20 LOT#: l intravenous 16:23: [place] solution 00 ___Mfg:___ ___ (Same as: Albuminar) "blood product derivative " WASTE: F/P - Red; E -Red MEDICATION WASTE Product Size: 25 gm Product Wasted: _0__ gm Calcium No Notes: [place] Gluconate 02-20 WASTE: F/P l 12:00: - Sink; E [place] 00 - Municipal Trash Bin albumin No Notes: [place] human 5% 02-20 LOT#: l intravenous 11:45: Jorge Alberto solution 00 ___Mfg:___ ___ (Same as: Albuminar) "blood product derivative " WASTE: F/P - Red; E -Red MEDICATION WASTE Product Size: 25 gm Product Wasted: ___ gm Lyrica No Notes: Memoria 02-19 (Same as: l 15:07: Lyrica) Jorge Alberto Os-Roger 500 No Notes: Memor ia 02-19 500mg l 15:00: elemental [place] calcium = 1250mg calcium carbonate. Contains 500mg elemental calcium. (Same As: OsCal 500) Calcium No 2 tab, Memoria Gluconate 02-19 Route: PO, l 650 MG Oral 12:03: ONCE, Gerda nn Tablet 00 Dosing Weight 84.545, kg, Start date: 02/20/20 7:03:00 CDT, Stop date: 02/20/20 7:03:00 CDT remove No 1 patch, Memoria patch 02-19 Route: l 02:00: TOP, [place] Bedtime, Drug form: ERFILM, Start date: 02/19/20 21:00:00 CDT, Duration: 30 day, Stop date: 03/19/20 21:00:00 CDT, 0 albumin No Notes: Memoria human 5% 02-18 LOT#: l intravenous 17:05: [place] solution ___Mfg:___ ___ (Same as: Albuminar) "blood product derivative " WASTE: F/P - Red; E -Red MEDICATION WASTE Product Size: 25 gm Product Wasted: _0__ gm Diphenhydra No 50 mg, Kalia aida mine 02-18 Route: l 17:00: IVP, ONCE, Jorge Alberto 00 Dosing Weight 84.545, kg, Start date: 02/19/20 12:00:00 CDT, Stop date: 02/19/20 12:00:00 CDT Calcium No Notes: Memoria Gluconate 02-18 WASTE: F/P l 15:00: - Sink; E Jorge Alberto - Municipal Trash Bin albumin 2019-0 No Notes: Memoria human 5% 02-18 LOT#: l intravenous 14:39: Jorge Alberto solution 00 ___Mfg:___ ___ (Same as: Albuminar) "blood product derivative " WASTE: F/P - Red; E -Red MEDICATION WASTE Product Size: 25 gm Product Wasted: _0__ gm Lidocaine 0 No 1 patch, Kalia aida 0.05 MG/MG 02-18 Route: l Transdermal 14:00: TOP, Berto n Patch 00 Daily, Drug form: FILM, Start date: 02/19/20 9:00:00 CDT, Duration: 30 day, Stop date: 03/19/20 9:00:00 CDT, 0 rosuvastati 2019- No Notes: Kalia aida n 02-18 (Same As: l 02:00: Crestor) Insulin 2019-0 No Notes: Memoria regular 02-18 (Same as: l 01:08: Humulin R) Roll in palms of hands gently; Do not shake vigorously . WASTE: F/P - Black; E - Municipal Trash Bin Stable for 31 days at room temperatur e Expires in days from ____Date insulin 2019-0 No 20 unit, Memori a glargine 02-17 0.2 mL, l 22:00: Route: Jorge Alberto 00 SUB-Q, Drug form: SOLN, BID, Start date: 02/18/20 17:00:00 CDT, Duration: 30 day, Stop date: 03/19/20 9:00:00 CDT, 0 insulin 2019-0 No 15 unit, Memori a detemir 02-17 Route: l 21:06: SUB-Q, [place] BID, Dosing Weight 84.545, kg, Start date: 02/18/20 16:06:00 CDT, Duration: 30 day, Stop date: 03/19/20 9:00:00 CDT Dextrose 2019- No 12.5 gm, Memor [...] . WASTE: F/P - Black; E - [employer] Trash Bin Stable for 31 days at [...] day, Stop date: 03/19/20 6:25:00 CDT potassium 2019-0 No Notes: Memori a chloride 20 02-17 (Same as: l mEq oral 10:45: K-Dur 20) Herm mercy , "Do Not extended Crush" release Give with (KCL) food and full glass of water For patients unable to swallow tablet, dissolve in one half glass of water. Allow about 2 minutes for the tablets to disintegra te. Stir before giving to prepare slurry and administer . Please exclude Patient s with feeding tube less than 14 [place] (Dobhoff, J-tube etc) and pediatric and patients. Tylenol No Notes: Do Memor ia 02-16 not exceed l 22:08: 4 gm/day. Jorge Alberto (Same as: Tylenol) Calcium No Notes: Memoria Gluconate 02-16 WASTE: F/P l 22:00: - Sink; E [place] - Municipal Trash Bin albumin No Notes: Memoria human 5% 02-16 LOT#: l intravenous 21:47: [place] solution 00 ___Mfg:___ ___ (Same as: Albuminar) "blood product derivative " WASTE: F/P - Red; E -Red MEDICATION WASTE Product Size: 25 gm Product Wasted: ___ gm Pyridostigm 2019-0 No 90 mg, Aklia aida ine 02-16 Route: GT, l 21:00: Drug form: TAB, Q8H, Dosing Weight 84.545, kg, Start date: 02/17/20 16:00:00 CDT, Duration: 30 day, Stop date: 03/18/20 8:00:00 CDT, 0 Mestinon 2019-0 No Notes: Memoria 02-16 (Same as: l 21:00: Mestinon) pyridostigm 2019-0 No Notes: Kalia aida ine 02-16 (Same as: l 21:00: Mestinon) Jorge Alberto 00 30 mg = 1/2 x 60 mg TAB clonazePAM 0 No Notes: Memor ia 02-16 (Same as l 18:45: KlonoPIN ODT) Hazardous Drug Group 3:Reproduc tive risk Hazardous Drug -- Refer to safe handling procedure PPE Matrix Clonazepam No Notes: Memor ia 9-18 (Same as l 17:27: KlonoPIN ODT) Hazardous Drug Group 3:Reproduc tive risk [...] 9-18 Take with l 14:00: food. Thiamine 2019- No Notes: Memoria 9-18 (Same As: l 14:00: Vitamin B1) Thyroxine No Notes: Memori a 9-18 Take 1 l 11:30: hour before or 2 hours after meal; Enteral feeds may interefere with the absorption of this medication . (Same as:Synthro id) Dextrose 2019- No 12.5 gm, Memor ia [...] 03/17/20 13:52:00 CDT, 1.91, m2, 0 Pyridostigm 0 Yes 60 mg = 1 M emoria ine [place] 9-17 tab, PO, l 60 MG Oral 17:29: TID, 0 Gerda nn Tablet 00 Refill(s) [Mestinon] Clonazepam No Notes: Memor ia - (Same As: l 17:29: KlonoPIN) Hazardous Drug Group 3:Reproduc tive risk Hazardous Drug -- Refer to safe handling procedure PPE Matrix Acetaminoph No 1,000 mg = Memoria en 500 MG 02-15 2 tab, PO, l Oral Tablet 15:49: TID, 0 Herm mercy [Tylenol] 00 Refill(s) Docusate No Notes: Memoria Sodium 50 02-15 (Same as l MG / 14:00: Senokot-S) sennosides, 00 Equiv. to LONGTERM 8.6 MG [place] Oral Tablet e. Pyridostigm No Notes: Kalia aida ine 02-15 (Same as: l 14:00: Mestinon) Furosemide No Notes: Memor ia 20 MG Oral 02-15 (Same as: l Tablet 14:00: Lasix) May cause GI upset. Give with food or milk. Lisinopril No Notes: Memor ia - (Same as: l 14:00: Prinivil, Jorge Alberto Zestril) Sertraline No Notes: Memor ia -17 (Same as: l 14:00: Zoloft) thiamine No 200 mg = 2 Mem oria 100 mg oral 02-15 tab, PO, l tablet 13:57: Daily [place] 00 3 ML Yes See Memoria Insulin, 02-15 Instructio l Aspart, 13:55: ns, 10 [place] Human 100 00 unit SUB-Q UNT/ML Pen TID-Before Injector Meals and [NovoLog] at bedtime, 0 Refill(s) 3 ML No 30 unit, Memoria insulin 02-15 SUB-Q, l detemir 100 13:55: BID, 0 [facility] mercy UNT/ML 00 Refill(s) Prefilled Syringe [Levemir] Thyroxine No Notes: Memori a - Take 1 l 11:30: hour [place] 00 before or 2 hours after meal; Enteral feeds may interefere with the absorption of this medication . (Same as:Synthro id) heparin 2019-0 No Notes: Memoria sodium, 02-15 porcine l porcine 05:00: heparin [place] 2500 UNT/ML 00 Injectable Solution rosuvastati 2019-0 No Notes: Kalia aida n 02-15 (Same As: l 02:00: Crestor) Dextrose 2019-0 No 12.5 gm, Memor ia 50% Syringe 02-15 25 mL, l (D50W) 00:49: Route: [place] 00 IVP, Drug Form: INJ, Dosing Weight 84.545, kg, PRN, PRN Blood Glucose Results, Start date: 02/15/20 19:49:00 CDT, Duration: 30 day, Stop date: 03/16/20 19:48:00 CDT, 0 Glucagon 2019-0 No 1 mg, Memoria 02-15 Route: IM, l 00:49: Drug form: Jorge Alberto 00 PDR/INJ, PRN, [...] 02-15 (Same as: l 00:46: Norvasc) predniSONE 2020-0 Yes 20mg QD Take [facility]17 tablet (20 [facility] - 20 MG 00:00: mg total) Medical tablet 00 by mouth Center daily. predniSONE 2020-0 Yes 20mg QD Take 1 [facility] 9-17 tablet (20 [facility] - 20 MG 00:00: mg total) Medical tablet 00 by mouth Center daily. pyridostigm 2020-0 Yes 60mg Take [address] [facility] 9-16 (60 mg [facility] ([place] 00:00: total) by Ia dical 60 mg/5 mL 00 mouth Center syrup every 8 (eight) hours. pyridostigm 2020-0 Yes 60mg Take [address] [facility] 9-16 (60 mg [facility] ([place] 00:00: total) by [facility] dical 60 mg/5 mL 00 mouth Center syrup every 8 (eight) hours. clonazePAM 2020-0 Yes .5mg Q.5D Take 0.[address] [facility] (KLONOPIN) 9-11 mg by [facility] 0.5 MG 00:00: mouth 2 Medical tablet 00 (two) Center times daily. clonazePAM 2020-0 Yes .5mg Q.5D Take 0.[address] [facility] (KLONOPIN) 9-11 mg by [facility] - 0.5 MG 00:00: mouth 2 Medical tablet 00 (two) Center times daily. sertraline 2020-0 Yes 25mg QD Take [address] (ZOLOFT) 25 9-08 by mouth [facility] - MG tablet 00:00: nightly. [address] sertraline 2020-0 Yes 25mg QD Take [address] (ZOLOFT) 25 9-08 by mouth [facility] - MG tablet 00:00: nightly. [address] rosuvastati 2020-0 Yes 20mg QD Take [address] [facility] (CRESTOR) 8-01 by mouth [facility] - 20 MG 00:00: daily. Medical tablet [address] [place] [address] rosuvastati 2020-0 Yes 20mg QD Take [address] [facility] (CRESTOR) 8-01 by mouth [facility] - 20 MG 00:00: daily. Medical tablet [address] [place] [address] Potassium 2020-0 Yes 10 mEq = 1 Me moria Chloride 10 7-20 tab, PO, l MEQ 20:22: Daily, # Jorge Alberto Extended 00 30 tab, 0 Release Refill(s), Tablet other [Klor-Con] amLODIPine 2020-0 Yes 5 mg = 1 Mem oria 5 mg oral 7-20 tab, PO, l tablet 20:22: Daily, # Jorge Alberto 00 30 tab, 0 Refill(s), Pharmacy: [facility] #[id number], 149.86, cm, 12/06/19 15:12:00 CDT, [...] IV 7-20 25 mL, l 13:18: Route: [place] IVP, Drug Form: INJ, Dosing Weight 90, [...] Notes: Memoria 7-15 (Same l 23:52: as:MORPhin [place] 00 e Sulfate) potassium No Notes: Memori a phosphate 7-14 (Same as: l 22:19: K [place] 00 Phosphate. ) Do not infuse phosphorou [...] e 7-14 Take 1 l 12:30: hour [place] 00 before or 2 hours after meal; [...] as: l / 21:35: Duoneb) Ipratropium 00 [place] 0.167 MG/ML Inhalant Solution Furosemide No Notes: Memor ia 13 (Same as: l 19:00: Lasix) MEDICATION WASTE Product Size: 40 mg Product Wasted: ___ mg Potassium No Notes: Memori a Chloride - (Same as: l 13:51: Potassium Chloride) Furosemide [...] a 7-12 (Same as: l 17:40: Ativan) [place] Ofirmev No Notes: Memoria 7-12 Infuse l 17:00: over 15 minutes Do not exceed 4gm/day of acetaminop hen MEDICATION WASTE Product Size: 1000 mg Product Wasted: ___ mg Lidocaine No Notes: Memori a Hydrochlori 7-12 (Same as: l de 0.02 14:07: Xylocaine Gerda nn MG/MG 00 Jelly, Topical Gel Glydo) Morphine No Notes: Memoria 7-12 (Same l 14:06: as:MORPhin [place] 00 e Sulfate) Blistex No Notes: Memoria [...] 0 pantoprazol No Notes: For Memoria e -12 IV push l 02:00: reconstitu te with [...] Memoria 7-11 (Same as: l 22:00: Lasix) [place] 00 May cause GI upset. Give with food or milk. Dextrose 2020-0 No 12.5 gm, Memor ia 50% Syringe 7-11 25 mL, l (D50W) 16:56: Route: [place] 00 IVP, Drug Form: INJ, Dosing Weight 90, kg, PRN, PRN Blood Glucose Results, Start date: 12/10/19 11:56:00 CDT, Duration: 30 day, Stop date: 01/09/20 11:55:00 CDT, 0 Glucagon 2020-0 No 1 mg, Memoria 7-11 Route: IM, l 16:56: Drug form: Jorge Alberto 00 PDR/INJ, PRN, Dosing Weight 90, kg, PRN Blood Glucose Results, Start date: 12/10/19 11:56:00 CDT, Duration: 30 day, Stop date: 01/09/20 11:55:00 CDT, 0 Insulin 2020-0 No Notes: Memoria Lispro 7-11 (Same as: [...] IV push l 17:40: reconstitu Jorge Alberto 00 te with 10 ml 0.9% sodium chloride and push over 2 minutes. (Same as: Protonix) Acetaminoph No Notes: Do M emoria en 12-08 not exceed l 05:00: 4 gm/day. [place] (Same as: Tylenol) Amlodipine No Notes: Memor ia 12-07 (Same as: l 14:00: Norvasc) Ramipril No Notes: Memoria 12-07 (Same l 14:00: as:Altace) Dextrose 2019-0 No 12.5 gm, Memor ia 50% in 12-06 25 mL, l Water IV 17:21: Route: Jorge Alberto 00 IVP, Drug Form: [...] 12:51: Potassium Chloride) Lovenox No Notes: Memoria 7 (Same as: l 23:00: Lovenox) Lasix No Notes: Memoria 12-05 (Same as: l 20:35: Lasix) Tylenol No Notes: Do Memor ia 12-05 not exceed l 17:17: 4 gm/day. [place] 00 (Same as: Tylenol) Dextrose No 12.5 gm, Memor ia 50% Syringe 12-05 25 mL, l (D50W) 17:15: Route: [place] IVP, Drug Form: INJ, Dosing Weight 90, kg, PRN, PRN Blood Glucose Results, Start date: 12/06/19 12:15:00 CDT, Duration: 30 day, Stop date: 01/05/20 12:14:00 CDT, 0 Glucagon No 1 mg, Memoria 12-05 Route: IM, l 17:15: Drug form: Jorge Alebrto 00 PDR/INJ, PRN, Dosing Weight 90, kg, [...] 12-05 (Same as: l Tablet 17:10: Pepcid) [place] [Pepcid] 00 chlorhexidi No Notes: Kalia aida [...] one 12-05 (Same as: l 05:00: Solu-BERKLEY Jorge Alberto 00 F) Neurontin 2020-0 No Notes: Memori [...] Sublimaze) Preservat kimberly free. Vancomycin 2019-0 No 2001 mg: Me moria 12-04 infuse l 23:00: [...] being intubated (unless the nurse is a [employer] OPERATOR). Same as: Diprivan norepinephr No Route: IV, Memoria ine (ANES) 12-04 Drug form: l 10 20:20: INJ, Start Jorge Alberto microgram date: 12/05/19 15:20:00 CDT, Stop date: 12/05/19 16:20:00 CDT norepinephr 2019-0 No Route: IV, Memoria ine (ANES) 12-04 Drug form: l 20:10: INJ, ONCE, Jorge Alberto Stop date: 12/05/19 15:10:00 CDT Insulin 2020-0 [...] 100 15:46: INJ, Start Jorge Alberto microgram 00 date: 12/05/19 10:46:00 CDT, Stop date: 12/05/19 11:46:00 CDT lidocaine 2020-0 No Route: IV, Me moria (ANES) 12-04 Drug form: l 15:35: INJ, ONCE, [place] Stop date: 12/05/19 10:35:00 CDT phenylephri 2020-0 [...] 12-04 Drug form: l 14:44: INJ, ONCE, [place] 00 Stop date: 12/05/19 9:44:00 CDT fentaNYL 2020-0 No Route: IV, Mem oria (ANES) 12-04 Drug form: l 14:44: INJ, ONCE, [place] 00 Stop date: 12/05/19 9:44:00 CDT dexamethaso 2019-0 No Route: IV, Memoria ne (ANES) 12-04 Drug form: l 14:39: INJ, ONCE, Jorge Alberto 00 Stop date: 12/05/19 9:39:00 CDT ePHEDrine 2019-0 No Route: IV, Me hurtado (ANES) 12-04 Drug form: l 13:58: INJ, ONCE, [place] Stop date: 12/05/19 8:58:00 CDT Sodium 2020-0 No Route: IV, Memor ia Chloride 12-04 [...] mg date: 12/05/19 9:45:00 CDT Isolyte S 2019-0 No Route: IV, Me hurtado PH 7.4 12-04 Total l (ANES) 1000 13:08: Volume: Her restrepo mL 00 1,000, Start date: 12/05/19 8:08:00 CDT, Stop date: 12/05/19 9:08:00 CDT Albuterol 2019-0 No Notes: Memori a 0.833 MG/ML 12-04 (Same as: l / 13:00: Duoneb) [place] Ipratropium 00 [place] 0.167 MG/ML Inhalant Solution Humalog 2019-0 No Notes: Memoria 7- (Same as: l 21:30: Humalog) Jorge Alberto 00 Roll in palms of hands gently; Do not shake vigorously . WASTE: F/P - Black; E - Municipal Trash Bin Stable for 28 days at room temperatur e. Expires in days from ____Date Humalog 2019-0 No Notes: Memoria 7- (Same as: l 18:08: Humalog) [place] 00 Roll in palms of hands gently; [...] Lispro - (Same as: l 05:57: Humalog) [place] Roll in palms of hands gently; Do not shake vigorously . WASTE: F/P - Black; E - Municipal Trash Bin Stable for 28 days at room temperatur e. Expires in days from ____Date Insulin 2020-0 No 20 unit, Memori a Glargine - 0.2 mL, l 14:00: Route: [place] 00 SUB-Q, Drug form: SOLN, Daily, Dosing Weight 90, kg, Start date: 12/02/19 9:00:00 CDT, Duration: 30 day, Stop date: 12/31/19 9:00:00 CDT, 0 Levemir 2020-0 No 20 unit, Memori a 7- Route: l 02:00: SUB-Q, [place] 00 Bedtime, Dosing Weight 90, kg, Start date: 12/01/19 21:00:00 CDT, Duration: 30 day, Stop date: 12/30/19 21:00:00 CDT Dextrose 2020-0 No 12.5 gm, Memor ia 50% Syringe 11-30 25 mL, l (D50W) 18:30: Route: Jorge Alberto 00 IVP, Drug Form: INJ, Dosing Weight 90, kg, PRN, PRN Blood Glucose Results, Start date: 12/01/19 13:30:00 CDT, Duration: 30 day, Stop date: 12/31/19 13:29:00 CDT, 0 Glucagon 2020-0 No 1 mg, Memoria 11-30 Route: IM, l 18:30: Drug form: [place] 00 PDR/INJ, PRN, Dosing Weight 90, kg, [...] 11-29 Route: IM, l 02:47: Drug form: [place] 00 PDR/INJ, PRN, Dosing Weight 90, kg, PRN Blood Glucose Results, Start date: 11/29/19 21:47:00 CDT, Duration: 30 day, Stop date: 12/29/19 21:46:00 CDT, 0 Insulin 2019- No Notes: Memoria Lispro 7-01 (Same as: l 02:47: Humalog) [place] 00 Roll in palms of hands gently; [...] 0.9% 6-30 (Same as: l 21:00: BD [place] Posiflush) Saline No Notes: Memoria Flush 0.9% 6-30 (Same as: l 20:21: BD [place] 00 Posiflush) Dextrose 5% No 1,000 mL, [...] 00 sennosides, 0 No Notes: Kalia aida LONGTERM 6-27 (Same as: l 02:00: Senokot) [place] 00 Insulin 2019-0 No 20 unit, Memori a Glargine 6-27 0.2 mL, l 100 UNT/ML 02:00: Route: Gerda nn Injectable 00 SUB-Q, Solution Drug form: [Lantus] SOLN, Q12H, Dosing Weight 90, kg, Start date: 11/25/19 21:00:00 CDT, Duration: 30 day, Stop date: 12/25/19 9:00:00 CDT, 0 Ramipril 2020-0 No Notes: Memoria - (Same l 14:00: as:Altace) [place] 00 Oxycodone 2019-0 No Notes: Memori a Hydrochlori 11-24 (Same as: l de 1 MG/ML 12:15: 'Roxicodon H ermann Oral 00 e) Solution rosuvastati 2019-0 No Notes: Kalia aida n 11-24 (Same As: l 02:00: Crestor) Jorge Alberto 00 Acetaminoph 2020-0 Yes 650 mg = [...] 6-24 (Same as: l 23:05: Humulin R) Roll in palms of hands [...] 6-24 Route: IM, l 22:47: Drug form: [place] 00 PDR/INJ, PRN, Dosing Weight 90, kg, [...] e Expires in days from ____Date gabapentin 2019- No Notes: Memor ia -24 (Same as: l 21:00: Neurontin) Lovenox 0 No Notes: Memoria -24 (Same as: l 16:42: Lovenox) Lasix No Notes: Memoria 6-24 (Same as: l 15:44: Lasix) May cause [...] 12/23/19 10:32:00 CDT, 1.98, m2, 0 Zoloft 2019- No Notes: Memoria 6-24 (Same as: l 14:00: Zoloft) Prednisone 0 No Notes: Memor ia 6-24 Take with l 14:00: food. Docusate No Notes: Memoria 6-24 (Same as: l 12:53: Colace) Jorge Alberto 00 (Do Not Crush) sennosides, No Notes: Kalia aida LONGTERM 6-24 (Same as: l 12:53: Senokot) Albuterol No Notes: Memori a 0.833 MG/ML 24 (Same as: l / 11:46: Duoneb) Ipratropium 00 [place] 0.167 MG/ML Inhalant Solution Synthroid No Notes: [...] Lovenox) Lidocaine No Notes: Memori a Hydrochlori 6-23 Apply only l de 0.05 22:00: once for Berto n MG/MG 00 up to 12 Transdermal hours in a Patch 24-hour [Lidoderm] period (12 hours on and 12 hours off). (Same as: Lidoderm) "Remove old patch before applicatio n of new patch" Dextrose No 12.5 gm, Memor ia 50% Syringe 6-23 25 mL, l (D50W) 21:16: Route: [place] 00 IVP, Drug Form: INJ, Dosing Weight 100, kg, PRN, PRN Blood Glucose Results, Start date: 11/22/19 16:16:00 CDT, Duration: 30 day, Stop date: 12/22/19 16:15:00 CDT, 0 Glucagon No 1 mg, Memoria 6-23 Route: IM, l 21:16: Drug form: [place] 00 PDR/INJ, PRN, Dosing Weight 100, kg, [...] 11-21 Infuse l 0.0014 12:32: Over: 1 [place] MEQ/ML / 00 hr, Route: Potassium IV, [...] flush 0-04 (Same as: l 23:00: Heparin [place] 00 Lock Flush) heparin 2018-06 No 100 unit, Memor ia 0-04 Route: l 22:24: IVP, ONCE, [place] 00 Dosing Weight 100, kg, Start date: 03/04/19 17:24:00 CDT, Stop date: 03/04/19 17:24:00 CDT rosuvastati 2018-06 Yes 20 mg = 2 M emoria n 10 mg 0-04 tab, PO, l oral tablet 21:12: Bedtime, # [place] 17 180 tab, 3 Refill(s) amLODIPine 2018-06 Yes 10 mg, PO, M emoria 10 mg oral 0-04 Daily, # l tablet 21:09: 30 tab, 0 B[place] n 00 Refill(s) Ergocalcife 2018-06 Yes 50,000 Kalia aida rol 85386 0-04 IntlUnit = l UNT Oral 21:09: 1 cap, PO, Her restrepo Capsule 00 Q7D, # 5 cap, 0 Refill(s) Famotidine 2018-06 Yes 20 mg = 1 Me moria 20 MG Oral 0-04 tab, PO, l Tablet 21:09: Daily, # [place] 00 30 tab, 0 Refill(s) Furosemide 2018-06 Yes 20 mg = 1 Me moria 20 MG Oral 0-04 tab, PO, l Tablet 21:09: Daily, # [place] [Lasix] 00 30 tab, 0 Refill(s) Insulin 2018-06 Yes 15 unit, Memori a Glargine 0-04 SUB-Q, l 100 UNT/ML 21:09: Daily, # Her restrepo Injectable 00 15 mL, 0 Solution Refill(s) [Lantus] linezolid 2018-06 Yes 600 mg = 1 Me moria 600 mg oral 0-04 tab, PO, l tablet 21:09: [id number], X Gerda nn 00 7 day, # [...] 2 tab, PO, Memoria azole 800 0-04 [id number], X l MG / 21:09: 7 day, [...] oral 0-04 tab, PO, l tablet 18:44: [id number], 0 Gerda nn 00 Refill(s) meclizine 2018-06 No 12.5 mg = Mem oria 12.5 mg 0-04 1 tab, PO, l oral tablet 18:44: TID, PRN He rmann 00 Dizziness, 0 Refill(s) melatonin 3 2018-06 No 6 mg = 2 Me moria mg oral 0-04 tab, PO, l tablet 18:44: Bedtime, [place] 00 PRN Sleep, 0 Refill(s) Metronidazo 2018-06 No 500 mg = 1 Memoria le 500 MG 0-04 tab, PO, l Oral Tablet 18:44: [id number], 0 H ermann 00 Refill(s) QUEtiapine 2018-06 No 25 mg = 1 Me moria 25 mg oral 0-04 tab, PO, l tablet 18:44: Bedtime, 0 Gerda nn 00 Refill(s) Sulfamethox 2018-06 No 2 tab, PO, Memoria azole 800 0-04 [id number], 0 l MG / 18:44: Refill(s) [place] Trimethopri 00 m 160 MG Oral Tablet [Bactrim] Acetaminoph 2018-06 No 650 mg = 2 Memoria en 325 MG 0-04 tab, PO, l Oral Tablet 18:44: Q6H, PRN He rm 00 Pain Score 7-10, 0 Refill(s) Ergocalcife 2018-06 No 50,000 Kalia aida rol 18423 0-04 IntlUnit = l UNT Oral 18:44: 1 cap, PO, Her restrepo Capsule 00 Q7D, 0 Refill(s) Famotidine 2018-06 No 20 mg = 1 Me moria 20 MG Oral 0-04 tab, PO, l Tablet 18:44: Daily, 0 [place] 00 Refill(s) Hydroxyzine 2018-06 No 25 mg [...] oria 02-26 tab, l 22:00: Route: PO, [place] 00 Drug form: TAB, [id number], Dosing Weight 90.909, kg, Start date: 02/26/19 17:00:00 CDT, Duration: 10 day, Stop date: 03/08/19 8:00:00 CDT, ABX Indication : Skin/Soft Tissue Infection, 0 Sulfamethox No 2 tab, Kalia aida azole 800 02-26 Route: PO, l MG / 22:00: Drug Form: Jorge Alberto Trimethopri 00 TAB, m 160 MG Dosing Oral Tablet Weight [Bactrim] 90.909, kg, [id number], Start date: 02/26/19 17:00:00 CDT, Duration: 10 [...] ONCE, Stop date: 02/26/19 12:48:00 CDT propofol 2018- No Route: IV, Mem oria (ANES) 02-26 [...] Kalia aida 02-26 Route: l 17:36: IVP, Jorge Alberto 00 Q20Min, Dosing Weight 90.909, kg, PRN Elevated BP, Start date: 02/26/19 12:36:00 CDT, Duration: 2 doses or times, Stop date: Limited # of times Labetalol 2019-0 No 10 mg, Memori a 02-26 Route: l 17:36: IVP, [place] 00 Q5Min, Dosing Weight 90.909, kg, PRN [...] aida 02-26 Route: l 17:36: IVP, PRN, [place] Dosing Weight 90.909, kg, PRN Benzodiaze pine [...] Memori a 02-23 Route: l 04:53: IVP, [place] 00 Q5Min, Dosing Weight 90.909, kg, PRN Elevated BP, Start date: 02/22/19 23:53:00 CDT, Duration: 5 doses or times, Stop date: Limited # of times Acetaminoph 2019-0 No 1,000 mg, M emoria en 02-23 Route: PO, l 04:53: Drug form: [place] 00 TAB, ONCE, Dosing Weight 90.909, kg, [...] ia 02-23 Route: l 04:53: IVP, ONCE, [place] 00 Dosing Weight 90.909, kg, PRN Nausea & Vomiting, Start date: 02/22/19 23:53:00 CDT Insulin 2019-0 No 2 unit, Memoria regular 02-23 Route: l 04:53: SUB-Q, [place] Sliding Scale, Dosing Weight 90.909, kg, PRN Blood Glucose Results, Start date: 02/22/19 23:53:00 CDT, Duration: 30 day, Stop date: 03/24/19 23:52:00 CDT ertapenem No Notes: Me moria 02-23 MEDICATION l 02:00: WASTE [place] Product Size: 1000 mg Product Wasted: ___ mg insulin, No Notes: Memoria isophane 02-22 (Same as: l 21:34: Humulin N) [place] 00 Roll in palms of hands gently; Do not shake vigorously . WASTE: F/P - Black; E - Municipal Trash Bin Stable for 31 days at room temperatur e Expires in days from ____Date Prednisone No Notes: Memor ia 02-22 Take with l 14:00: food. Jorge Alberto Saline 2018-0 No 10 mL, Memoria Flush [...] 0.9% 02-21 Route: l 19:42: IVP, Drug [place] 00 Form: INJ, Dosing Weight 90.909, kg, PRN, PRN Line Flush, Start date: 02/21/19 14:42:00 CDT, Duration: 30 day, Stop date: 03/23/19 14:41:00 CDT Lidocaine 0 No 5 mL, Memoria Hydrochlori 9- Route: l de 10 MG/ML 19:00: INTRADERM, Jorge Alberto Injectable Dosing Solution Weight 90.909, kg, ONCALL, For PICC line insertion. , Start date: 02/21/19 14:00:00 CDT, Duration: 30 day, Stop date: 03/23/19 13:59:00 CDT Saline No 10 mL, Memoria Flush 0.9% 9- Route: l 18:20: IVP, Drug Jorge Alberto Form: INJ, Dosing Weight 90.909, kg, PRN, PRN Line Flush, Start date: 02/21/19 13:20:00 CDT, Duration: 30 day, Stop date: 03/23/19 13:19:00 CDT Lidocaine No 2 spray, Kalia aida Hydrochlori - Route: l de 20 MG/ML 18:20: TOP, ONCE, [place] Topical 00 Start [place] date: 02/21/19 13:20:00 CDT, Stop date: 02/21/19 13:20:00 CDT Lidocaine No Notes: Memori a Hydrochlori 9-23 (Same as: l de 10 MG/ML 17:00: Xylocaine) [place] Injectable 00 Solution Saline No 10 mL, Memoria Flush 0.9% 9-23 Route: l 16:54: IVP, Drug Jorge Alberto Form: INJ, Dosing [...] 0.9% 9-22 (Same as: l 21:25: BD [place] 00 Posiflush) insulin, No Notes: Memoria isophane 02-20 (Same as: l 12:25: Humulin N) [place] 00 Roll in palms of hands gently; Do not shake vigorously . WASTE: F/P - Black; E - Municipal Trash Bin Stable for 31 days at room temperatur e Expires in days from ____Date Melatonin No Notes: Memori a 02-20 (Same as: l 08:41: Melatonin) Jorge Alberto 00 Zyprexa No Notes: Memoria 02-20 (Same As: l 04:51: ZyPREXA [place] 00 IM). insulin, No Notes: Memoria isophane [...] detemir 02-18 Non-Formul l 14:00: jordi Drug Jorge Alberto [...] s with feeding tube less than 14 [place] (Dobhoff, J-tube etc) and pediatric and patients. PlasmaLyte No Notes: Memor ia A PH-7.4 02-18 (Same as: l 1,000 mL 12:26: Isolyte S [facility] PH 7.4) insulin No Notes: Memoria detemir 02-18 Non-Formul l 02:00: jordi Drug [place] 00 (Same as Levemir) "Single Patient Use Only" Do not hold insulin without contacting prescriber WASTE: F/P - Black; E - Municipal Trash Bin Stable for 42 days at room temperatur e Expires in days from ____Date Seroquel No Notes: Memoria 02-18 (Same as: l 02:00: SEROquel) insulin No Notes: Memoria detemir 02-17 Non-Formul l 22:00: jordi Drug [place] 00 (Same as Levemir) "Single Patient Use [...] ___ mg ertapenem No Notes: Me moria -18 MEDICATION l 22:00: WASTE Product Size: 1000 [...] Memoria 02-14 (Same as: l 12:30: Humalog) [place] 00 Roll in palms of hands gently; [...] Memoria 02-14 Same as l 07:00: Merrem [place] MEDICATION WASTE Product Size: 500 mg Product Wasted: ___ mg Insulin No Notes: Memoria Lispro 02-14 (Same as: l 02:57: Humalog) [place] 00 Roll in palms of hands gently; Do not shake vigorously . WASTE: F/P - Black; E - Municipal Trash Bin Stable for 28 days at room temperatur e. Expires in days from ____Date Dextrose 2019-0 No 12.5 gm, Memor ia 50% Syringe 02-14 25 mL, l 01:33: Route: [place] 00 IVP, Drug Form: INJ, Dosing Weight [...] 50% Syringe 02-14 Route: l 01:32: IVP, Jorge Alberto 00 Dosing Weight 90.909, kg, PRN, PRN Blood Glucose Results, Start date: 02/13/19 20:32:00 CDT, Duration: 30 day, Stop date: 03/15/19 20:31:00 CDT Glucagon 2019-0 No 1 mg, Memoria 02-14 Route: IM, l 01:32: PRN, [place] 00 Dosing Weight 90.909, kg, PRN Blood Glucose Results, Start date: 02/13/19 20:32:00 CDT, Duration: 30 day, Stop date: 03/15/19 20:31:00 CDT Insulin 2019-0 No 2 unit, Memoria regular 9-16 Route: l 01:32: SUB-Q, [place] 00 TID-Before Meals, Dosing Weight 90.909, kg, PRN Blood Glucose Results, Start date: 02/13/19 20:32:00 CDT, Duration: 30 day, Stop date: 03/15/19 20:31:00 CDT Morphine No Notes: Memoria 9-15 (Same l 22:52: as:MORPhin Jorge Albreto 00 e Sulfate) Insulin No Notes: Memoria Lispro 9-15 (Same as: l 04:38: Humalog) [place] 00 Roll in palms of hands gently; Do not shake vigorously . WASTE: F/P - Black; E - Municipal Trash Bin Stable for 28 days at room temperatur e. Expires in days from ____Date Saline No Notes: Memoria Flush 0.9% 9-14 (Same as: l 21:00: BD Jorge Alberto 00 Posiflush) Ativan No Notes: Memoria 9-14 (Same as: l 17:02: Ativan) [place] 00 Lidocaine No 5 mL, Memoria Hydrochlori 14 Route: l de 10 MG/ML 17:00: INTRADERM, [place] Injectable 00 Dosing Solution Weight 90.909, kg, ONCALL, For PICC line insertion. , Start date: 02/12/19 12:00:00 CDT, Duration: 30 day, Stop date: 03/14/19 11:59:00 CDT Saline No Notes: Memoria Flush 0.9% 9-14 (Same as: l 16:23: BD Jorge Alberto 00 Posiflush) Morphine No Notes: Memoria 9-14 (Same l 16:12: as:MORPhin [place] 00 e Sulfate) Isolyte S No Notes: Memori a PH 7.4 9-14 (Same as: l 06:30: Isolyte S [place] 00 PH 7.4) Isolyte S No Notes: [...] from ____Date Haloperidol No Notes: Kalia aida - (Same as: l 03:59: Haldol) Morphine No 1 mg, Memoria 02-10 Route: IV, l 18:32: ONCE, Dosing Weight 90.909, kg, Priority: STAT, Start date: 02/10/19 13:32:00 CDT, Stop date: 02/10/19 13:32:00 CDT vancomycin No 2001 mg: Me moria -12 infuse l 17:00: over 2.5 00 hours [...] 100 Memoria 9-11 ml/min, l 13:00: Time [place] 00 Critical Medication , Start date: 02/09/19 8:00:00 CDT, Duration: 7 day, Stop date: 02/16/19 0:00:00 CDT, ABX Indication : Skin/Soft Tissue Infection Merrem No Notes: Memoria 11 Same as l 13:00: Merrem MEDICATION WASTE Product Size: 500 mg Product Wasted: _0__ mg Vancomycin No 2000 mg: Me moria - infuse l 12:54: over 2.5 hours For [...] Memoria 9-10 (Same as: l 12:30: Humalog) [place] 00 Roll in palms of hands gently; Do not shake vigorously . WASTE: F/P - Black; E - Municipal Trash Bin Stable for 28 days at room temperatur e. Expires in days from ____Date Dextrose 2018-0 No 12.5 gm, Memor ia 50% Syringe 02-08 25 mL, l 06:33: Route: [place] 00 IVP, Drug Form: INJ, Dosing Weight 90.909, kg, PRN, PRN Blood Glucose Results, Start date: 02/08/19 1:33:00 CDT, Duration: 30 day, Stop date: 03/10/19 1:32:00 CDT, 0 Glucagon No 1 mg, Memoria - Route: IM, l 06:33: Drug form: [place] 00 PDR/INJ, PRN, Dosing Weight 90.909, kg, PRN Blood Glucose Results, Start date: 02/08/19 1:33:00 CDT, Duration: 30 day, Stop date: 03/10/19 1:32:00 CDT, 0 Insulin 0 No Notes: Memoria Lispro -10 (Same as: l 06:33: Humalog) Jorge Alberto 00 Roll in palms of hands gently; Do not shake vigorously . WASTE: F/P - Black; E - Municipal Trash Bin Stable for 28 days at room temperatur e. Expires in days from ____Date Humalog 2018-0 No Notes: Memoria 9-10 (Same as: l 03:51: Humalog) [place] 00 Roll in palms of hands gently; Do not shake vigorously . WASTE: F/P - Black; E - Municipal Trash Bin Stable for 28 days at room temperatur e. Expires in days from ____Date NS (Bolus) 2018-0 No 500 mL, Kalia aida IV 9-10 500 ml/hr, l 03:50: Infuse [place] 00 Over: 1 hr, Route: IV, ONCE, [...] Memoria patch 9-10 Route: l 02:00: TOP, [place] 00 Bedtime, Drug form: ERFILM, Start date: 02/07/19 21:00:00 CDT, Duration: 30 day, Stop date: 03/08/19 21:00:00 CDT, 0 Humalog 2018-0 No Notes: Memoria 9-10 (Same as: l 01:20: Humalog) [place] 00 Roll in palms of hands gently; Do not shake vigorously . WASTE: F/P - Black; E - Municipal Trash Bin Stable for 28 days at room temperatur e. Expires in days from ____Date Insulin 2019-0 No Notes: Memoria Lispro 9-10 Roll in l 00:08: palms of [place] 00 hands gently; do not shake vigorously . (Same as: Humalog) WASTE: F/P - Black; E - Municipal Trash Bin Stable for 28 days at room temperatur e. Expires in days from Insulin 2019-0 No 10 unit, Memori a regular 02-07 Route: l 22:12: SUB-Q, [place] 00 ONCE, Dosing Weight 90.909, kg, Start date: 02/07/19 17:12:00 CDT, Stop date: 02/07/19 17:12:00 CDT Lidocaine 2018- No 1 patch, Kalia aida 0.05 MG/MG 02-07 Route: l Transdermal 19:00: TOP, Berto n Patch 00 Daily, Drug form: FILM, Start date: 02/07/19 14:00:00 CDT, Duration: 30 day, Stop date: 03/09/19 9:00:00 CDT, 0 Ergocalcife No 50,000 Kalia aida rol [id number] 02-07 IntlUnit, l UNT Oral 18:16: 1 cap, Jorge Alberto Capsule 00 Route: PO, Drug form: CAP, Q7D, Dosing Weight 90.909, kg, Start date: 02/07/19 13:16:00 CDT, Duration: 30 day, Stop date: 04/04/19 9:00:00 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 WASTE: F/P - Black; E - [employer] Trash Bin Stable for 31 days at [...] No Notes: Memor ia 40 MG Oral 12 (Same as: l Tablet 11:00: Lasix) Jorge Alberto [Lasix] 00 May cause GI upset. Give with food or milk. Furosemide No Notes: Memor ia 810 (Same as: l 11:00: Lasix) [place] 00 MEDICATION WASTE Product Size: 40 mg Product Wasted: ___ mg Sodium No Notes: SEE Memor ia Chloride 3% 01-07 RT l inhalation 01:37: DOCUMENTAT H ermann solution 00 ION (Same as: Hypertonic Saline 3%, Inhalation ) Furosemide No Notes: Memor ia 07 (Same as: l 16:00: Lasix) [place] MEDICATION WASTE Product Size: 40 mg Product [...] or milk. Amlodipine No Notes: Memor ia 01-02 (Same as: l 22:00: Norvasc) Ramipril No Notes: Memoria 8- (Same l 13:00: as:Altace) ceFAZolin No Notes: Memori a -04 (Same as l 11:00: Ancef) Calcium No Notes: Memoria Gluconate 01-01 WASTE: F/P l 14:30: - Sink; E - Municipal Trash Bin predniSONE No 40 mg = 2 Me moria 20 mg oral 01-01 tab, PO, l tablet 14:29: Daily, X Jorge Alberto 00 10 day, # 20 tab, 0 Refill(s), other insulin No 12 unit, Soyori a lispro 100 -03 SUB-Q, l units/mL 14:29: TID-Before Her restrepo injectable 00 Meals, # solution 10 mL, 0 Refill(s), other insulin No 36 unit, Memori a detemir 100 8-03 SUB-Q, l UNT/ML 14:29: BID, # 30 B[place] n Injectable 00 mL, 0 Solution Refill(s), [Levemir] other albumin No Notes: Soyoria human 5% 01-01 LOT#: l intravenous 14:27: Jorge Alberto solution 00 ___Mfg:___ ___ (Same as: Albuminar) "blood product derivative " WASTE: F/P - Red; E -Red MEDICATION WASTE Product Size: 25 gm Product Wasted: ___ gm Prednisone No Notes: Soyor ia 01-01 Take with l 14:00: food. [place] 00 Insulin No 34 unit, Soyori a Glargine 01-01 0.34 mL, l 100 UNT/ML 14:00: Route: Gerda nn Injectable 00 SUB-Q, Solution Drug form: [Lantus] SOLN, Daily, Dosing Weight 92, kg, Start date: 01/01/19 9:00:00 CDT, Duration: 30 day, Stop date: 01/30/19 9:00:00 CDT, 0 Insulin No Notes: Memoria Lispro - (Same as: l 12:30: Humalog) Jorge Alberto 00 Roll in palms of hands gently; Do not shake vigorously . WASTE: F/P - Black; E - Municipal Trash Bin Stable for 28 days at room temperatur e. Expires in days from ____Date Insulin No Notes: Memoria Glargine 8- (Same as: l 100 UNT/ML 02:00: Lantus) Do H ermann Injectable 00 not hold Solution insulin [Lantus] without contacting prescriber WASTE: F/P - Black; E - Municipal Trash Bin "single patient use only" Stable for 28 days at room temperatur e Expires in days from ____Date Calcium No Notes: Feli Gluconate 12-30 WASTE: F/P l 15:00: - Sink; E [place] 00 - Municipal Trash Bin albumin No Notes: Feli human 5% 12-30 LOT#: l intravenous 14:34: Jorge Alberto solution ___Mfg:___ ___ (Same as: [...] Notes: Memoria 12-30 Chlorasept l 05:37: ic [place] Jorge Alberto (Same as: Chlorasept ic, Sore Throat [place]) WASTE: F/P - Black; E - Municipal [...] ia isophane 7-31 Route: l 16:00: SUB-Q, [place] 00 Q24H, Dosing Weight 92, kg, Start date: 12/29/18 11:00:00 CDT, Duration: 30 day, Stop date: 01/27/19 11:00:00 CDT Ancef No Notes: Memoria 7-31 (Same as l 16:00: Ancef) Sulfamethox No Notes: One Memoria azole 800 7-31 DS tablet l MG / 15:00: = [place] Trimethopri 00 trimethopr m 160 MG im 160mg + Oral Tablet sulfametho [Bactrim] xazole 800 mg Dose based on trimethopr im component On empty stomach with a glass of water. (Same As: Bactrim DS, Septra DS) docusate No Notes: Memoria sodium 7-31 (Same as: l 14:00: Colace) (Do Not Crush) sennosides, No Notes: Kalia aida LONGTERM 8.6 MG 7-31 (Same as: l Oral Tablet 14:00: Senokot) rmann 00 Prednisone No Notes: Memor ia 7-31 Take [...] sodium, - porcine l porcine 21:00: heparin [place] 2500 UNT/ML 00 Injectable Solution Dextrose No 12.5 gm, Memor ia 50% Syringe 12-27 25 mL, l 20:14: Route: Jorge Alberto 00 IVP, Drug Form: INJ, Dosing Weight 92, kg, PRN, PRN Blood Glucose Results, Start date: 12/27/18 15:14:00 CDT, Duration: 30 day, Stop date: 01/26/19 15:13:00 CDT, 0 Glucagon No 1 mg, Memoria 12-27 Route: IM, l 20:14: Drug form: [place] 00 PDR/INJ, PRN, Dosing Weight 92, kg, PRN Blood Glucose Results, Start date: 12/27/18 15:14:00 CDT, Duration: 30 day, Stop date: 01/26/19 15:13:00 CDT, 0 Insulin No Notes: Memoria regular 12-27 (Same as: l 20:14: Humulin R) [place] Roll in palms of hands gently; Do not shake vigorously . WASTE: F/P - Black; E - Municipal Trash Bin Stable for 31 days at room temperatur e Expires in days from ____Date insulin, No Notes: Memoria isophane 12-27 (Same as: l 14:44: Humulin N) [place] Roll in palms of hands gently; Do not shake vigorously . WASTE: F/P - Black; E - Municipal Trash Bin Stable for 31 days at room temperatur e Expires in days from ____Date Zithromax No Notes: Memori a 250 mg oral 7-29 Take 1 l tablet 14:00: hour [place] 00 before or 2 hours after meals. (Same As: Zithromax) Lanolin No Notes: Memoria 0.157 MG/MG 12-27 (Same as: l / Menthol 05:46: Calmosepti He rmann 0.0044 00 ne) MG/MG / Petrolatum 0.24 MG/MG / Zinc Oxide 0.206 MG/MG Topical Ointment Famotidine No Notes: Memor ia 12-27 (Same as: l 03:00: Pepcid) [place] 00 Midodrine No Notes: Memori a 12-26 (Same l 22:00: as:Proamat Jorge Alberto 00 ine) albumin No Notes: Memoria human 5% 12-26 LOT#: l intravenous 14:08: Jorge Alberto solution 00 ___ Mfg: WASTE: F/P - Red; E -Red (Same as: Albuminar) "blood product derivative " Midodrine No Notes: Memori a 12-26 (Same l 14:00: as:Proamat [place] 00 ine) azithromyci No Notes: Kalia aida n 500 mg 12-26 Take 1 l oral tablet 14:00: hour Berto n 00 before or 2 hours after meals. (Same As: Zithromax) Calcium No 3 gm, Memoria Gluconate 12-26 Route: IV, l 14:00: Continuous Jorge Alberto , Dosing Weight 92, kg, Start date: [...] ine 12-26 for direct l 02:03: administra [place] 00 tion - DILUTE. Protect from light. [...] human 5% 12-25 LOT#: l intravenous 15:35: [place] solution 00 ___Mfg:___ ___ (Same as: Albuminar) "blood product derivative " WASTE: F/P - Red; E -Red MEDICATION WASTE Product Size: 25 gm Product Wasted: ___ gm Prednisone No Notes: Memor ia 7-27 Take with l 14:00: food. [place] 00 Thyroxine No Notes: Memori a 7-27 [...] PO, l oral tablet 04:55: Bedtime, 0 [place] 00 Refill(s) ramipril 10 Yes 10 mg [...] Chloride - PO, Daily, l 04:55: 0 Refill(s) Pyridostigm Yes 60 mg, PO, Memoria ine 12-25 Q8H, 0 l 04:55: Refill(s) sertraline Yes 25 mg = 1 Me moria 25 mg oral -27 tab, PO, l tablet 04:55: Daily, 0 [place] 00 Refill(s) Thyroxine Yes 88 Memoria - microgram, l 04:55: PO, Daily, Jorge Alberto [...] l 02:00: Colace) sennosides, No Notes: Kalia aiad LONGTERM 8.6 MG 7-27 (Same as: l Oral Tablet 02:00: Senokot) [facility] Ceftriaxone No Notes: Memoria 7-27 MEDICATION l 02:00: WASTE Product Size: 2000 mg Product Wasted: ___ mg Albuterol No Notes: Memori a 0.833 MG/ML 7-27 (Same as: l / 01:57: Duoneb) Ipratropium 00 [place] 0.167 MG/ML Inhalant Solution [DuoNeb] chlorhexidi No Notes: Kalia aida ne 7-27 (Same As: l gluconate 01:00: Peridex) Herm mercy 1.2 MG/ML 00 Mouthwash Flagyl No 500 mg, Memoria 7-27 [...] phosphate 7-26 Infuse l 23:37: over 4 [place] 00 hour. Do not infuse phosphorou s [...] (Same as: l odium 23:37: Phos-NaK) phosphate 00 Each 1.5 250 mg-280 gm pkt has mg-160 mg 250mg oral powder phosphorou for s. Mix reconstitut w/2.5oz ion water and stir. Magnesium No Notes: Memori a Sulfate 12-24 WASTE: F/P l 23:37: - Sink; E Jorge Alberto - Municipal Trash Bin Magnesium No Notes: Memori a Oxide 12-24 (Same as: l 23:37: Mag-Ox [place] 00 400) Magnesium oxide 481hi=927g g elemental magnesium Dose=____m g magnesium oxide (___mg elemental magnesium) Calcium No Notes: Memoria Gluconate 12-24 WASTE: F/P l 23:37: - Sink; E [place] - Municipal Trash Bin Calcium No Notes: Memoria Carbonate 12-24 (Same As: l 500 MG 23:37: Tums) [place] able Calcium Tablet Carbonate 500 mg = 200 [...] 12-24 Route: IM, l 23:37: Drug form: [place] PDR/INJ, PRN, Dosing Weight 102.273, kg, PRN Blood Glucose Results, Start date: 12/24/18 18:37:00 CDT, Duration: 30 day, Stop date: 01/23/19 18:36:00 CDT, 0 chlorhexidi No Notes: Kalia aida ne 12-24 (Same As: l gluconate 23:37: Peridex) Herm mercy 1.2 MG/ML 00 Mouthwash Insulin No Notes: Memoria regular 12-24 Roll in l 23:37: palms of [place] 00 hands gently; do not shake vigorously . (Same as: Humulin R) WASTE: F/P - Black; E - Municipal Trash Bin Stable for 31 days at room temperatur e Expires in days from Norepinephr No Notes: Not Memoria ine 7-26 for direct l 23:37: administra Jorge Alberto 00 tion - DILUTE. Protect from light. (Same as:Levophe d). Administer by either central venous catheter or peripheral ly-inserte d central catheter (PICC) line. Isolyte S No Notes: Memori a PH 7.4 7-26 (Same as: l 1,000 mL 23:37: Isolyte S Herm mercy 00 PH 7.4) Ibuprofen No Notes: Memori a 7- (Same as: l 14:35: Motrin) [place] 00 "Do Not Crush" Give with food. Tylenol No Notes: Max Kalia aida 11-29 acetaminop l 14:32: hen 4000 [place] 00 mg/day (4 gm/day). (Same as: Tylenol Extra Strength) Pyridostigm Pyridostigm Yes SUUR TAKE 1 [facility] ine [place] ine [place] 6-25 BILICILER TABLET BY ity of 60 [...] DAY Physici ans predniSONE predniSONE Yes SUUR QD TAKE 1 [facility] 20 MG Oral 20 MG Oral 5-10 BILICILER TABLET BY ity of Tablet Tablet 00:00: M.D. MOUTH [place] 00 EVERY DAY Physici ans Mestinon No Notes: Memoria 4-25 (Same as: l 17:00: Mestinon) [place] 00 Insulin No Notes: Memoria Lispro 4-25 (Same as: l 08:43: Humalog) [place] Roll in palms of hands gently; Do [...] 14:00: Pepcid) sennosides, No Notes: Kalia aida LONGTERM 8.6 MG 4-24 (Same as: l Oral [...] MG / 14:00: Senokot-S) side Equiv. to LONGTERM 8.6 MG Cassidy-Colac Oral Tablet e. Levothroid [...] MG HCl - 2 MG 4-23 KESER MLinden TABLET AT ity of Oral Tablet Oral Tablet 00:00: BEDTIME. [place] 00 Physici ans Occupationa Yes See Memori a l Therapy 09-19 Instructio l 16:48: ns, MISC, [place] 00 ONCALL, Evaluate and Treat __3_ times per week for __4__ weeks, # 1 bag, 0 Refill(s) Physical Yes See Memoria Therapy 09-19 Instructio l 16:48: ns, MISC, [place] 00 ONCALL, Evaluate and Treat _3__ times per week for __4__ weeks, # 1 bag, 0 Refill(s) Ramipril No Notes: Memoria 4-21 (Same l 15:56: as:Altace) [place] 00 Furosemide Yes 20 mg = 1 Me moria 20 MG Oral 4-21 tab, PO, l Tablet 15:44: Every [place] 00 Other Day, # 15 tab, 3 [...] sennosides, Yes 8.6 mg = 1 Memoria LONGTERM 8.6 MG 4-21 tab, PO, l Oral [...] - Rate: 75 l IV 1,000 mL 05:54: [...] n 00 30 cap, 1 Refill(s), Pharmacy: [facility] #[id number] metoprolol 2019-0 No 25 mg = 1 Me moria tartrate 25 4-19 tab, PO, l mg oral 23:56: Q12H, # 60 Herm mercy tablet 00 tab, 1 Refill(s), [facility]: [id number] Furosemide 2019-0 No 20 mg = 1 Me moria 20 MG Oral 4-19 tab, PO, l Tablet 23:56: Every Jorge Alberto 00 Other Day, # 30 tab, 1 Refill(s), Pharmacy: [id number] amLODIPine 2019-0 No 10 mg = 1 Me moria 10 mg oral 4-19 tab, PO, l tablet 23:56: Daily, # Jorge Alberto 00 30 tab, 1 Refill(s), Pharmacy: [facility] #[id number] sertraline 2019-0 No 25 mg = 1 Me moria 25 mg oral 4-19 tab, PO, l tablet 23:56: Q24H, # 30 Gerda nn 00 tab, 1 Refill(s), Pharmacy: [facility] #[id number] sennosides, 2019-0 No 8.6 mg = 1 Memoria LONGTERM 8.6 MG 4-19 tab, PO, l Oral Tablet 23:56: BID, # 60 H ermann 00 tab, 0 Refill(s), Pharmacy: [facility] #[id number] pyridostigm 2019-0 No 60 mg = 1 M emoria ine 60 mg 4-19 tab, PO, l oral tablet 23:56: Q8Hnow, # H ermann 00 90 tab, 1 Refill(s), Pharmacy: [facility] #[id number] predniSONE 2019-0 No 60 mg = 3 Me moria 20 mg oral 4-19 tab, PO, l tablet 23:56: Daily, # Jorge Alberto 00 30 tab, 1 Refill(s), Pharmacy: [facility] #[id number] Insulin 2018-0 No Notes: Memoria regular 4-19 (Same as: l 23:52: Humulin R) Jorge Alberto 00 Roll in palms of hands gently; Do not shake vigorously . WASTE: F/P - Black; E - Municipal Trash Bin Stable for 31 days at room temperatur e Expires in days from ____Date Glucagon 2019-0 No 1 mg, Memoria 4-19 Route: IM, l 23:52: Drug form: Jorge [...] 4-18 (Same as: l 15:30: Humulin N) [place] 00 Roll in palms of hands gently; [...] 4-18 (Same as: l 05:00: Humulin N) [place] 00 Roll in palms of hands gently; Do not shake vigorously . WASTE: F/P - Black; E - Municipal Trash Bin Stable for 31 days at room temperatur e Expires in days from ____Date Insulin No Notes: Memoria regular 4-18 (Same as: l 01:34: Humulin R) [place] 00 Roll in palms of hands gently; [...] e 4-17 Take 1 l 14:00: hour [place] 00 before or 2 hours after meal; [...] 0.9% -17 (Same as: l 02:00: BD [place] 00 Posiflush) Lasix No Notes: Memoria 4-17 (Same as: l 02:00: Lasix) Jorge Alberto 00 MEDICATION WASTE Product Size: 40 mg Product Wasted: ___ mg docusate No Notes: Memoria sodium 100 -16 (Same as: l mg oral 22:00: Colace) [place] capsule 00 (Do Not Crush) sennosides, No Notes: Kalia aida LONGTERM 4-16 (Same as: l 22:00: Senokot) [place] 00 insulin, No Notes: Memoria isophane 4-16 (Same as: l 21:22: Humulin N) [place] 00 Roll in palms of hands gently; Do not shake vigorously . WASTE: F/P - Black; E - Municipal Trash Bin Stable for 31 days at room temperatur e Expires in days from ____Date Insulin No Notes: Memoria regular 4-16 (Same as: l 21:20: Humulin R) [place] 00 Roll in palms of hands gently; [...] Syringe 4-16 25 mL, l 21:20: Route: [place] 00 IVP, Drug Form: INJ, Dosing Weight [...] ia 4-16 (Same as: l 14:00: Norvasc) [place] 00 Lasix No Notes: Memoria 4-16 (Same as: l 13:45: Lasix) MEDICATION WASTE Product Size: 40 mg Product Wasted: ___ mg Albuterol No Notes: Memori a 0.833 MG/ML -16 (Same as: l / 12:48: Duoneb) Ipratropium 00 [place] 0.167 MG/ML Inhalant Solution [DuoNeb] Potassium No [...] being intubated (unless the nurse is a ROUND CORNER CUTTER OPERATOR). Same as: Diprivan Rocuronium No Notes: Memor ia 4-15 (Same as: l 11:01: Zemeron) [place] 00 Fentanyl No Notes: Memoria 4-15 (Same as: l 11:01: Sublimaze) Jorge Alberto Preservat kimberly free. Propofol No Notes: If Kalia aiad 4-15 Diprivan - l 11:01: change [place] 00 bottle & tubing every 12 hr Per state nursing law propofol can only be given by a nurse if patient is intubated or being intubated (unless the nurse is a ROUND CORNER CUTTER OPERATOR). Same as: Diprivan ocular No Notes: Memoria lubricant 4-15 (Same as: l 11:00: Lacri-Lube [place] 00 , Puralube, Duratears Naturale, Artificial Tears, and Tears Again ) normal No 1,000 mL, Memori a saline 0.9% -15 Rate: 75 l IV 1,000 mL 10:43: ml/hr, Herm mercy Infuse over: 13.3 hr, Route: IV, Dosing Weight 91.378 kg, Total Volume: 1,000, Start date: 09/13/18 5:43:00 CDT, Duration: 30 day, Stop date: 10/13/18 5:42:00 CDT, 1.99, m2 chlorhexidi No Notes: Kalia iada ne 4-15 (Same As: l gluconate 07:43: [...] Nutrition 03:00: 1.2 micron He rmann - 00 filter AND Peripheral Lipids (PPN [...] 4-15 IVPB, Drug l empty 02:00: form: [place] container 1 00 SOLN, bag Bedtime, Start date: 09/12/18 21:00:00 CDT, Duration: 1 doses or times, Stop date: 09/12/18 21:00:00 CDT, Indication : Myasthenia gravis Gamunex-C No Notes: Memori a 50 gm + 4-15 WASTE: F/P l empty 02:00: - Red; E [place] container 1 00 -Red Lot bag # Mf g: __ (Gamunex - C) Non-Formul jordi "blood product derivative " Pyridostigm No Notes: Kalia aida ine 4-15 (Same as: l 00:09: Mestinon) [place] 00 Calcium No Notes: Memoria Carbonate 4-14 [...] Oxide 09-12 (Same as: l 21:44: Mag-Ox Jorge Alberto 00 400) Magnesium oxide 003am=612r g elemental magnesium Dose=____m g magnesium oxide [...] s with feeding tube less than 14 [place] (Dobhoff, J-tube etc) and pediatric and patients. [...] gel 09-12 (Same As: l 21:38: Maximum [place] 00 Strength PM Orajel ) Immunoglobu 2019-0 No 75 gm, Kalia aida lawanda G [...] thiazide 4-13 (Same as: l 14:00: Hydrodiuri [place] 00 l) With food. Docusate No Notes: Memoria Sodium 50 4-13 (Same as l MG / 14:00: Senokot-S) sennosides, 00 Equiv. to LONGTERM 8.6 MG Cassidy-Colac Oral Tablet e. Furosemide [...] sodium, 4-13 porcine l porcine 02:00: heparin [place] 2500 UNT/ML 00 Injectable Solution Lacri-Lube No [...] 4 mg Product Wasted: ___ mg Immunoglobu 2019-0 No 36 gm, Kalia aida lawanda G 4-12 Route: l 21:42: IVPB, Drug form: SOLN, Daily, Dosing Weight 91.378, kg, Start date: 09/10/18 16:42:00 CDT, Duration: 5 day, Stop date: 09/15/18 9:00:00 CDT, Indication : Other see comments Insulin No 60 Memoria regular 4-12 units) l 13:17: WASTE: F/P [place] 00 - Black; E - Municipal Trash [...] as: l 05:20: BD Posiflush) Dextrose 5% 20190 No 1,000 mL, M emoria with 0.9% 4-12 Rate: 75 l NaCl IV 05:20: ml/hr, [place] 1,000 mL 00 Infuse over: 13.3 hr, Route: IV, Dosing Weight 91.378 kg, Total Volume: 1,000, Start date: 09/10/18 0:20:00 CDT, Duration: 30 day, Stop date: 10/10/18 0:19:00 CDT, 1.99, m2 Streptococc No Notes: Kalia adia us 4-12 Shake well l pneumoniae 05:11: prior to Her restrepo serotype 1 25 use (Same capsular as: antigen Prevnar diphtheria 13) [id number] protein conjugate vaccine / Streptococc us pneumoniae serotype 14 capsular antigen diphtheria [id number] protein conjugate vaccine / Streptococc us pneumoniae serotype 18C capsular antigen d insulin No Notes: Memoria glargine 4-12 (Same as: l 03:00: Lantus) Do [place] 00 not hold insulin without contacting prescriber [...] Me moria 4-11 MEDICATION l 01:00: WASTE Product Size: 500 mg Product Wasted: _0__ mg 0.5 ML Yes SUB-Q, Memoria dulaglutide 4-10 every l 3 MG/ML 23:50: Thursday, 0 Gerda nn Prefilled 00 Refill(s) Syringe [Trulicity] Insulin 2019-0 Yes 20 unit, Memori a Glargine 4-10 SUB-Q, l 100 UNT/ML 23:50: Bedtime, # H ermann Injectable 00 3 mL, 3 Solution Refill(s) heparin 2018-0 No Notes: Memoria 4-10 porcine l 21:00: heparin [place] 00 Dextrose 2019-0 No 12.5 gm, Memor ia 50% Syringe 4-10 25 mL, l 14:49: Route: IVP, Drug Form: INJ, Dosing Weight 94.3, kg, PRN, PRN Blood Glucose Results, Start date: 09/08/18 9:49:00 CDT, Duration: 30 day, Stop date: 10/08/18 9:48:00 CDT Glucagon 2018- No 1 mg, Memoria 4-10 Route: IM, l 14:49: Drug form: PDR/INJ, PRN, Dosing Weight 94.3, kg, PRN [...] Alberto 00 90 tab, 3 Refill(s), Pharmacy: [facility] [id number] rosuvastati 2018-0 Yes 20 mg = 2 M emoria n 10 mg 3-22 tab, PO, l oral tablet 00:09: Bedtime, # Jorge Alberto 00 180 tab, 3 Refill(s) ramipril 5 2019- Yes 10 mg = 2 Me moria mg oral 3-22 cap, PO, l capsule 00:09: Q24H, # Jorge Alberto 00 180 cap, 3 Refill(s) Insulin 2018-0 Yes 20 unit, Memori a Glargine 3-22 SUB-Q, l 100 UNT/ML 00:09: QPM, # 15 He rmann Injectable 00 mL, 3 Solution Refill(s) Furosemide Yes 20 mg = 1 Me moria 20 MG Oral 3-22 tab, PO, l Tablet 00:09: Every [place] 00 Other Day, # 15 tab, 0 Refill(s) amLODIPine Yes 5 mg = 1 Mem oria 5 mg oral 3-22 tab, PO, l tablet 00:09: Daily, # [place] 00 90 tab, 3 Refill(s) metoprolol Yes [...] 3-20 (Same as: l 14:00: Norvasc) heparin 2018- No Notes: Memoria 3-20 porcine l 05:00: [...] regular 3-19 units) l 08:18: WASTE: F/P [place] 00 - Black; E - Municipal Trash [...] CDT Bisacodyl 2019-0 No Notes: Memori a - (Same As: l 06:06: Dulcolax, Jorge Alberto 00 Bisco-Lax) Labetalol 2019-0 No 20 mg, 4 [...] l 23:14: Hernán IV, Drug Jorge Alberto 00 form: INJ, Q4H, PRN Elevated BP, [...] Angelito Rate: 100 l 22:56: Hernán ml/hr, [place] 00 Infuse over: 10 hr, Route: IV, Total Volume: 1,000, Start date: 03/24/11 17:56:00, Duration: 30 day, Stop date: 04/23/11 17:55:00 Novolin N 2010-06 No Allen 10 unit, Mem oria 0-24 Angelito 0.1 mL, l 14:00: Hernán Route: [place] 00 SUB-Q, Drug form: INJ, BID, Start date: 03/24/11 9:00:00, Duration: 30 day, Stop date: 04/22/11 17:00:00 [place] 2010-06 No Allen 120 mg, 2 Memor [...] Duration: 30 day, Stop date: 04/22/11 7:36:00 [place] 2010-06 No Allen 120 mg, Memoria Thyroid [...] Angelito tab, l 02:00: Hernán Route: PO, Egrda nn Drug form: TAB, Bedtime, Start date: 03/22/11 21:00:00, Duration: 30 day, Stop date: 04/20/11 21:00:00 Keppra 500 2010-06 No Allen 500 mg, 1 M emoria mg oral 0-23 Angelito tab, l tablet 02:00: Hernán Route: PO, Her restrepo Drug form: TAB, Q12H, Start date: 03/22/11 21:00:00, Duration: 30 day, Stop date: 04/21/11 9:00:00 [place] 5/325 2010-06 No Allen 1 tab, Mem [...] Angelito Rate: 50 l 21:57: Hernán ml/hr, [place] 00 Infuse over: 20 hr, Route: IV, Total Volume: 1,000, Start date: 03/22/11 16:57:00, Duration: 30 day, Stop date: 04/21/11 16:56:00 insulin 2010-06 No Allen 3 unit, Memori a aspart 0-22 Angelito 0.03 mL, l 21:28: Hernán Route: [place] 00 SUB-Q, Drug form: SOLN, TID-Before Meals, [...] Dumont mL, Route: l 15:11: IVP, Drug [place] 00 form: INJ, ONCE, Priority: STAT, Start [...] tab, l tablet 14:00: [place] Route: PO, [place] 00 Drug Form: TAB, Daily, Start date: 03/14/11 9:00:00, Duration: 30 day, Stop date: 04/12/11 9:00:00 metoprolol 2010-06 No Darcy 12.5 mg, 1 Memoria 0-14 Jeane ea, Route: l 14:00: [place] PO, Drug Gerda nn 00 form: TAB, BID, Start date: 03/14/11 9:00:00, Duration: 30 day, Stop date: 04/12/11 17:00:00 Crestor 2010-06 No Darcy 20 mg, 2 Memoria 0-14 Jeane tab, l 14:00: [place] Route: PO, Her restrepo 00 Drug form: [...] Memoria 0-14 Jeane 0.1 mL, l 14:00: [place] Route: [place] 00 SUB-Q, Drug form: INJ, BID, Start date: 03/14/11 9:00:00, Duration: 30 day, Stop date: 04/12/11 17:00:00 docusate 2010-06 No Darcy 100 mg, 1 Memoria sodium 100 0-14 Jeane cap, l mg oral 14:00: [place] Route: PO, Jorge Alberto capsule 00 Drug form: CAP, BID, Start date: 03/14/11 9:00:00, Duration: 30 day, Stop date: 04/12/11 17:00:00 calcium 2010-06 No Darcy 500 mg, 1 Memoria carbonate 0-14 Jeane tab, l 14:00: [place] Route: PO, Her restrepo 00 Drug form: [...] Memoria in 0-14 Jeane tab, l 12:00: [place] Route: PO, Her restrepo 00 Drug form: TAB, [id number], Start date: 03/14/11 7:00:00, Duration: 30 day, Stop date: 04/12/11 19:00:00 cefepime 2010-06 No Darcy 2 gm, Me moria 0-14 Jeane Route: IV, l 12:00: Ash Drug form: Her restrepo 00 INJ, [id number], Start date: 03/14/11 7:00:00, Duration: 30 day, Stop date: 04/12/11 23:00:00 [place] 2010-06 No Darcy 120 mg, 2 Memoria Thyroid 0-14 Jeane tab, l 11:45: Ash Route: PO, Her restrepo 00 Drug form: TAB, [id number], Start date: 03/14/11 6:45:00, Duration: 30 day, Stop date: 04/13/11 6:30:00 glucagon 2010-06 No Darcy 1 mg, Me moria 0-14 Jeane Route: IM, l 11:06: [place] Drug form: Her restrepo 00 PDR/INJ, PRN, PRN Blood Glucose Results, Priority: STAT, Start date: 03/14/11 6:06:00, Duration: 30 day, Stop date: 04/13/11 5:05:00 Dextrose 2010-06 No Darcy 25 gm, 50 Memoria 50% Syringe 0-14 Jeane mL, Route: l 11:06: [place] IVP, Drug Herm mercy 00 Form: INJ, PRN, PRN Blood Glucose Results, Start date: 03/14/11 6:06:00, Duration: 30 day, Stop date: 04/13/11 5:05:00 insulin 2010-06 No Darcy 4 unit, M emoria aspart 0-14 Jeane 0.04 mL, l 11:06: Ash Route: [place] 00 SUB-Q, Drug form: SOLN, TID-Before Meals, PRN Blood Glucose Results, Start date: 03/14/11 6:06:00, Duration: 30 day, Stop date: 04/13/11 6:05:00 [place] 5/325 2010-06 No Darcy 1 tab, Memoria oral tablet 0-14 Jeane Route: PO, l 11:02: [place] Drug Form: Her restrepo 00 TAB, Q4H, [...] ea, Route: l 01:00: Aaron PO, Drug [place] 00 form: TAB, BID, Start date: 03/06/11 20:00:00, Duration: 30 day, Stop date: 04/05/11 8:00:00 metoprolol 2010-06 Yes McCasey R 12.5 mg, Memoria 25 mg oral 0-06 Rizvi 0.5 ea, l tablet 20:26: PO, BID, [place] 19 60 tab, Substituti on Allowed, TAB trazodone 2010-06 Yes [place]asey R 50 mg, 1 Memoria 50 mg oral 0-06 Rizvi tab, PO, l tablet 20:24: Bedtime, Jorge Alberto 01 40 tab, Substituti on Allowed, TAB [place] 5/325 2010-06 Yes McCasey R 1 tab, PO, Memoria oral tablet 0-06 Rizvi Q4H, PRN, l 20:23: 40 tab, [place] 43 Pain, Substituti on Allowed, Maintenanc e, TAB Novolin N 2010-06 Yes McCasey R 10 unit, Memoria 100 0-06 Rizvi SUB-Q, l units/mL 20:23: BID, 10 Berto n subcutaneou 30 ml, s injection Substituti on Allowed, SUSP [place] 2010-06 Yes McCasey R 120 mg, 2 M emoria Thyroid 60 0-06 Rizvi tab, PO, l mg oral 20:23: Before [place] tablet 07 Breakfast, 60 tab, Substituti on Allowed, TAB Keppra 500 2010-06 Yes McCasey R 500 mg, 1 Memoria mg oral 0-06 Rizvi tab, PO, l tablet 20:22: Q12H, 60 [place] 39 tab, Substituti on Allowed, TAB Crestor [...] PO, l mg oral 20:21: BID, 30 [place] capsule 19 cap, Substituti on Allowed, CAP [...] l 13:00: Aaron Route: PO, Gerda nn 00 Drug form: TAB, Daily, Start date: 03/06/11 8:00:00, Duration: 30 day, Stop date: 04/04/11 8:00:00 Norvasc 2010-06 No Chaitanya A 5 mg, Memor ia 0 Crowe Route: PO, l 13:00: Daily, [place] 00 Start date: 03/02/11 8:00:00, Duration: 30 day, Stop date: 03/31/11 8:00:00 trazodone No Bonnie Jyotsna 50 mg, 1 Memoria 50 mg oral 02-28 Zeider tab, l tablet 02:00: Route: PO, Gerad nn Drug form: TAB, Bedtime, Start date: 02/27/11 21:00:00, Duration: 30 day, Stop date: 03/28/11 21:00:00 calcium No Bonnie Jyotsna 500 mg, 1 Memoria carbonate 02-27 Zeider tab, l 13:00: Route: PO, [place] 00 Drug form: TAB, TID, Start date: [...] date: 02/27/11 8:00:00, Stop date: 03/28/11 8:00:00 [place] No Bonnie Jyotsna 120 mg, 2 Memoria Thyroid 02-27 Zeider tab, l 11:30: Route: PO, [place] Drug form: TAB, Before Breakfast, Start date: 02/27/11 6:30:00, Duration: 30 day, Stop date: 03/28/11 6:30:00 Insulin No Chaitanya A 5 unit, Mem oria regular 02-27 Crowe 0.05 mL, l 11:30: Route: [place] 00 SUB-Q, Drug form: SOLN, TID-Before Meals, [...] tab, l 04:00: Route: PO, Jorge Alberto Drug form: TAB, Q12H, Priority: Routine, Start date: 02/26/11 23:00:00, Duration: 30 day, Stop date: 03/28/11 11:00:00 Crestor No Bonnie Jyotsna 20 mg, 2 Memoria 02-27 Zeider tab, l 02:00: Route: PO, [place] Drug form: TAB, Daily, Start date: 02/26/11 21:00:00, Duration: 30 day, Stop date: 03/27/11 21:00:00 levetiracet No Bonnie Jyotsna 500 mg, 1 Memoria am 02-27 Zeider tab, l 02:00: Route: PO, [place] 00 Drug form: TAB, Q12H, Start date: 02/26/11 21:00:00, Duration: 30 day, Stop date: 03/28/11 9:00:00 magnesium No Bonnie Jyotsna 400 mg, 1 Memoria oxide 02-27 Zeider tab, l 01:00: Route: PO, Jorge Alberto 00 Drug form: TAB, BID, Start date: 02/26/11 20:00:00, Duration: 5 day, Stop date: 03/03/11 8:00:00 insulin No Bonnie Jyotsna 10 unit, Memoria isophane-BLOWER OPERATOR 02-27 Zeider 0.1 mL, l H [...] A 20 mg, 1 M emoria 02-27 Croew tab, l 01:00: Route: PO, Jorge Alberto 00 Drug form: TAB, BID, Start date: 02/26/11 20:00:00, Stop date: 03/28/11 8:00:00 cefepime No Bonnie Jyotsna 2 gm, Me moria 02-26 Zeider Route: l 23:00: IVPB, Drug [place] form: INJ, [id number], Start date: 02/26/11 18:00:00, Duration: 30 day, Stop date: 03/28/11 10:00:00 Saline No Bonnie Jyotsna 5 ml, Kalia aida Flush 0.9% 02-26 Zeider Route: l 22:39: IVP, Drug [place] Form: INJ, PRN, PRN Line Flush, Start date: 02/26/11 17:39:00, Duration: 30 day, Stop date: 03/28/11 17:38:00 calcium No Bonnie Jyotsna 500 mg, 1 Memoria carbonate 02-26 Zeider tab, l 22:39: Route: Jorge Alberto 00 CHEW, Drug form: CHEWTAB, TID, PRN Indigestio n, Start date: 02/26/11 17:39:00, Duration: 30 day, Stop date: 03/28/11 17:38:00 [place] 5/325 No Bonnie Jyotsna 1 tab, Memoria oral tablet 02-26 Zeider Route: PO, l 22:39: Drug Form: [place] 00 TAB, Q4H, PRN Pain, Start date: 02/26/11 17:39:00, Duration: 30 day, Stop date: 03/28/11 17:38:00 acetaminoph No Bonnie Jyotsna 650 mg, Memoria en 02-26 Zeider 20.3 mL, l 22:39: Route: PO, Drug form: LIQ, Q4H, PRN Fever, Start date: 02/26/11 17:39:00, Duration: 30 day, Stop date: 03/28/11 17:38:00 [place] No Bonnie Jyotsna 1 tab, Kalia aida 7.5/325 02-26 Zeider Route: PO, l oral tablet 22:39: Drug Form: TAB, Q4H, PRN Pain, Start date: 02/26/11 17:39:00, Duration: 30 day, Stop date: 03/28/11 17:38:00 Insulin No Bonnie Jyotsna 2 unit, M emoria regular 02-26 Zeider 0.02 mL, l 22:39: Route: SUB-Q, Drug form: SOLN, TID-Before Meals, PRN Blood Glucose Results, Start date: 02/26/11 17:39:00, Duration: 30 day, Stop date: 03/28/11 17:38:00 ondansetron No Bonnie Jyotsna 4 mg, 2 Memoria 02-26 Zeider mL, Route: l 22:39: IVP, Drug form: INJ, ONCE, PRN Nausea & Vomiting, Start date: 02/26/11 17:39:00 [place] Yes Katie L 120 mg, 2 M [...] PO, l mg oral 18:39: BID, 30 [place] capsule 39 cap, Substituti on Allowed, CAP ciprofloxac Yes Katie L 750 mg, 3 Memoria in 250 mg 02-26 Christianson tab, PO, l oral tablet 18:39: Q12H, 30 He rmann 31 doses or times, Substituti on Allowed, TAB Maxipime 2 Yes Katie L 2 gm, IV, Memoria g injection 02-26 Christianson Q8H, 1 l 18:39: doses or [place] 16 times, Substituti on Allowed calcium Yes [...] 02-24 Dean supp, l 19:38: Joel Route: INNikolas 00 Drug form: SUPP, ONCE, Start date: [...] 02-24 Caitie tab, l 16:02: Aaron Route: POGerda nn 00 Drug form: TAB, ONCE, Priority: NOW, Start date: 02/24/11 11:02:00, Stop date: 02/24/11 11:02:00 lisinopril No Val 10 mg, Mem oria 02-24 Route: PO, l 16:01: Aaron ONCE, Jorge Alberto 00 Start date: 02/24/11 11:01:00, Stop date: 02/24/11 11:01:00 Insulin 2010- No Val 3 unit, Memor ia regular [...] insulin No Val 10 unit, Kalia aida isophane-BLOWER OPERATOR 02-21e 0.1 mL, l H 22:00: Aaron Route: Jorge Alberto 00 SUB-Q, Drug form: INJ, BID, Start date: 02/21/11 17:00:00, Stop date: 03/23/11 9:00:00 magnesium 2010- No Val 400 mg, 1 M emoria oxide 02-21 tab, l 22:00: Aaron Route: PO, Gerda nn Drug form: TAB, BID, Start date: 02/21/11 17:00:00, Duration: 5 day, Stop date: 02/26/11 9:00:00 calcium 2010- No Val 500 mg, 1 Mem oria carbonate 02-21e tab, l 19:26: Aaron Route: [place] 00 CHEW, Drug form: CHEWTAB, TID, PRN [...] Duration: 30 day, Stop date: 03/22/11 8:00:00 [place] No Claudy 1 tab, Memoria 7.5/325 02-20 [...] Duration: 30 day, Stop date: 03/21/11 9:00:00 [place] 0 No Albaro 120 mg, 2 Kalia [...] M 5 mg, 1 M emoria 02-20 Alhaji mL, Route: l 06:56: IV, Drug [place] 00 form: INJ, Q10Min, PRN Hypertensi on, Start date: 02/20/11 1:56:00, Duration: 30 day, Stop date: 03/22/11 1:55:00 NS 500 mL No Ambili M 500 mL, M emoria 02-20 Alhaji Rate: l 03:07: 1,000 [place] 00 ml/hr, Infuse over: 0.5 hr, Route: IV, Total Volume: 500, Start date: 02/19/11 22:07:00, Duration: 1 doses or times, Stop date: 02/19/11 22:36:00, Bolus DoseBolus Dose calcium No Ambili M 1,000 mg, M emoria chloride 02-20 Alhaji 10 mL, l 02:18: Route: IV, [place] Drug form: INJ, ONCE, Start date: 02/19/11 21:18:00, Stop date: 02/19/11 21:18:00 Tylenol No Claudy 650 mg, 2 Kalia aida 02-20 Salazar tab, l 02:13: Route: PO, [place] Drug form: TAB, Q4H, PRN Fever, Start date: 02/19/11 21:13:00, Duration: 30 day, Stop date: 03/21/11 21:12:00 levetiracet No Albaro 500 mg, 1 Memoria am 02-20 Demarco tab, l 02:00: Christopher Route: PO, Berto n Drug form: TAB, Q12H, Start date: 02/19/11 21:00:00, Duration: 30 day, Stop date: 03/21/11 9:00:00 acetaminoph No Ambili M 650 mg, Memoria en 02-20 Alhaji 20.3 mL, l 01:04: Route: PO, [place] Drug form: LIQ, Q4H, PRN Fever, Start date: 02/19/11 20:04:00, Duration: 30 day, Stop date: 03/21/11 20:03:00 Prinivil 2010- No Val 10 mg, 1 Mem oria 02-19 Caitie tab, l 22:00: Aaron Route: PO, Gerda nn Drug form: TAB, BID, Start date: 02/19/11 17:00:00, Duration: 30 day, Stop date: 03/20/11 17:00:00 hydrALAZINE 0 No Val 25 mg, 1 Memoria 25 [...] Duration: 30 day, Stop date: 03/21/11 9:00:00 [place] 5/325 No Albaro 1 tab, Me moria oral tablet 02-19 Dav Route: PO, l 21:14: Christopher Drug Form: Berto n 00 TAB, Q4H, PRN Pain, Start date: 02/19/11 16:14:00, Duration: 30 day, Stop date: 03/21/11 16:13:00 ciprofloxac No Laure Thi 400 mg, Memoria in 02-19 Sahu 200 mL, l 21:10: Route: [place] 00 IVPB, Drug form: INJ, [id number], Priority: NOW, Start date: 02/19/11 16:10:00, Duration: [...] Demarco 12.5 mL, l 20:51: White Route: [place] 00 IVP, Drug Form: INJ, PRN, PRN Abnormal Lab Result, Start date: 02/19/11 15:51:00, Duration: 30 day, Stop date: 03/21/11 15:50:00 Saline No Albaro 5 ml, Memoria Flush 0.9% 02-19 Demarco Route: l 20:51: Christopher IVP, Drug [place] Form: INJ, PRN, PRN Line Flush, Start date: 02/19/11 15:51:00, Duration: 30 day, Stop date: 03/21/11 15:50:00 morphine No Albaro 2 mg, 1 Kalia aida Sulfate 02-19 Demarco mL, Route: l 20:51: Christopher IVP, Drug [place] 00 form: INJ, Q1H, PRN Pain Score 7-10, Start date: 02/19/11 15:51:00, Duration: 30 day, Stop date: 03/21/11 15:50:00 flumazenil No Boone 0.2 mg, 2 Memoria 02-19 r J Carlos mL, Route: l 19:18: Herman IVP, Drug Berto n 00 form: INJ, PRN, PRN Other -See Comment, Initial dose, Start date: 02/19/11 14:18:00, Duration: 30 day, Stop date: 03/21/11 14:17:00 naloxone 2010- No [place] 0.04 mg, Memoria 02-19 r J Carlos 0.1 mL, l 19:18: Herman Route: [place] 00 IVP, Drug form: INJ, Q2MIN, PRN [...] Ollie Rizvi Route: l 19:00: IVPB, Drug [place] 00 form: INJ, [id number], Start date: 02/19/11 14:00:00, Duration: 30 day, Stop date: 03/21/11 2:00:00 ondansetron Yes Bonnie Jyotsna 4 mg, 2 Memoria 2 mg/mL 9-20 Zeider mL, IVP, l injectable 21:12: Q8H, PRN, He rmann solution 09 30 mL, Nausea & Vomiting, Substituti on Allowed, SOLN Milk of Yes Bonnie Jyotsna 1.2 gm, 5 Memoria Magnesia 9-20 Zeider mL, PO, l 24% oral 21:12: Daily, [place] concentrate 02 PRN, 150 mL, Constipati on, Substituti on Allowed, Maintenanc e, CONC Prinivil 10 Yes Bonnie Jyotsna 10 mg, 1 Memoria mg oral 9-20 Zeider tab, PO, l tablet 21:11: QPM, 30 [place] 52 tab, Substituti on Allowed, TAB Keppra [...] tab, PO, l tablet 21:09: BID, 60 [place] 07 tab, Substituti on Allowed, TAB bisacodyl Yes Bonnie Jyotsna 10 mg, 1 Memoria 10 mg 9-20 Zeider supp, IN, l rectal 21:08: Bedtime, Jorge Alberto suppository 53 PRN, 30 supp, Constipati on, Substituti on Allowed, SUPP [place] 5/325 Yes Bonnie Jyotsna 1 tab, PO, Memoria oral tablet 9-20 Zeider Q4H, PRN, l 21:08: 30 tab, as Jorge Alberto 50 needed for pain, Substituti on Allowed, Maintenanc e, TAB [place] Yes Bonnie Jyotsna 120 mg, 1 Memoria [...] tab, PO, l tablet 21:08: Q8H, 90 [place] 06 tab, Substituti on Allowed, TAB normal [...] l 25 mEq oral 23:15: on Allowed [place] tablet, 20 effervescen t potassium No Mujahed M 40 mEq, 30 Memoria chloride -14 Alikhan mL, Route: l 16:00: PO, Drug Jorge Alberto form: LIQ, Daily, Start date: 02/12/11 11:00:00, Duration: 30 day, Stop date: 03/14/11 8:00:00 Kayexalate No Fide B 15 gm, 60 Memoria 9-14 Dean mL, Route: l 02:17: PO, Drug Jorge Alberto form: SUSP, ONCE, Start date: 02/11/11 21:17:00, Stop date: 02/11/11 21:17:00 Kayexalate No Meilani H 30 gm, 120 Memoria 9-13 [place] mL, Route: l 22:22: PO, Drug Jorge Alebrto form: SUSP, ONCE, Start date: 02/11/11 17:22:00, [...] 02-11 Zeider tab, l 13:00: Route: PO, [place] 00 Drug form: TAB, Daily, Start date: [...] 30 day, Stop date: 03/10/11 16:03:00 dexamethaso 0 No Meilani H 1 mg, 1 Memoria [...] Meilani H 2 mg, 1 Memoria ne - [place] tab, l 13:00: Route: PO, [place] 00 Drug form: TAB, TID, Start date: 02/05/11 8:00:00, Duration: 2 day, Stop date: 02/06/11 17:00:00 lisinopril 2010- No Bonnie Jyotsna 10 mg, 1 Memoria 02-04 Zeider tab, l 13:00: Route: PO, [place] Drug form: TAB, QPM, Start date: 02/04/11 8:00:00, Duration: 30 day, Stop date: 03/05/11 17:00:00 insulin 2010-0 No Mujahed M 8 unit, Ia moria isophane-BLOWER OPERATOR 9-06 Alikhan 0.08 mL, l H 11:30: Route: Jorge Alberto SUB-Q, Drug form: INJ, Before Breakfast, Start date: 02/04/11 6:30:00, Stop date: 03/05/11 6:30:00 insulin 2010-0 No Mujahed M 8 unit, Ia moria isophane-BLOWER OPERATOR 9-06 Alikhan 0.08 mL, l H 02:00: Route: [place] 00 SUB-Q, Drug form: INJ, Bedtime, Start date: 02/03/11 21:00:00, Stop date: 03/04/11 21:00:00 potassium 2010-0 No Darcy 40 mEq, 2 Memoria chloride 20 -05 Jeane tab, l mEq oral 19:29: Ash Route: PO, [place] tablet, 00 Drug form: extended ERTAB, release [...] 02-03 [place] tab, l 13:00: Route: PO, [place] 00 Drug form: TAB, TID, Start date: 02/03/11 8:00:00, Duration: 2 day, Stop date: 02/04/11 17:00:00 insulin No Darcy 15 unit, Memoria isophane-BLOWER OPERATOR 02-03 Jeane 0.15 mL, l H 05:00: Ash Route: [place] SUB-Q, Drug form: INJ, Q24H, Start date: [...] l tablet 22:00: Ash Route: PO, H erm 00 Drug form: TAB, BID, Start date: 02/01/11 17:00:00, Stop date: 03/03/11 8:00:00 heparin No Sky 5,000 Memoria 02-01 Mzee Rizvi unit, 1 l 21:00: mL, Route: Jorge Alberto SUB-Q, Drug form: INJ, Q8H, Start date: 02/01/11 16:00:00, Duration: 30 day, Stop date: 03/03/11 8:00:00 Kayexalate No Darcy 15 gm, 60 Memoria 02-01 Jeane mL, Route: l 18:19: [place] PO, Drug Gerda nn 00 form: SUSP, ONCE, Start date: 02/01/11 13:19:00, Stop date: 02/01/11 13:19:00 potassium No Darcy 20 mEq, 1 Memoria chloride 20 02-01 Jeane tab, l mEq oral 14:00: [place] Route: PO, [place] tablet, 00 Drug form: extended ERTAB, release [...] oral 02-01 Jeane tab, l tablet 14:00: [place] Route: PO, H Drug form: TAB, Daily, Start date: 02/01/11 9:00:00, Duration: 30 day, Stop date: 03/02/11 9:00:00 [place] No Bonnie Jyotsna 120 mg, 2 Memoria [...] Memoria 02-01 Jeane 0.2 mL, l 05:00: [place] Route: SUB-Q, Drug form: INJ, BID, Start date: 02/01/11 0:00:00, Stop date: 03/02/11 16:00:00 Keppra 100 2010- No Bonnie Jyotsna 500 mg, 5 Memoria mg/mL oral 02-01 Zeider mL, Route: l solution 02:00: [place], Drug Gerda nn 00 form: SOLN, Q12H, Start date: 01/31/11 21:00:00, Duration: 30 day, Stop date: 03/02/11 9:00:00 Insulin No Gideon 1 unit, Kalia aida regular 01-31 Jv 0.01 mL, l 22:22: Nur Route: [place] 00 SUB-Q, Drug form: SOLN, TID-Before Meals, [...] l 22:22: Nur Route: IN, Gerda nn 00 Drug form: SUPP, Bedtime, [...] 01-31 Zeider SUB-Q, l 22:00: Drug form: [place] 00 INJ, BID, Start date: 01/31/11 17:00:00, Duration: 30 day, Stop date: 03/02/11 9:00:00 metFORmin No Bonnie Jyotsna 500 mg, 1 Memoria 500 mg oral 01-31 Zeider tab, l tablet 21:00: Route: PO, Gerda nn 00 Drug form: TAB, Q8H, Start date: 01/31/11 16:00:00, Duration: 30 day, Stop date: 03/02/11 8:00:00 [place] 5/325 No Bonnie Jyotsna 1 tab, Memoria oral tablet 01-31 Zeider Route: PO, l 19:56: Drug Form: [place] 00 TAB, Q4H, PRN as needed for pain, Start date: 01/31/11 14:56:00, Duration: 30 day, Stop date: 03/02/11 14:55:00 bisacodyl No Bonnie Jyotsna 10 mg, Memoria 01-31 Zeider Route: IN, l 19:56: Drug form: [place] 00 SUPP, Daily, PRN as needed for [...] PO, l mg oral 17:52: BID, 60 [place] capsule 54 cap, Substituti on Allowed, CAP dexamethaso Yes Bonnie Jyotsna 4 mg, 1 Memoria ne 4 mg 01-31 Zeider tab, PO, l oral tablet 17:52: Q6H-02, 60 Jorge Alberto 42 tab, Substituti on Allowed, TAB bisacodyl Yes Bonnie Jyotsna 10 mg, 1 Memoria 10 mg 01-31 Zeider supp, IN, l rectal 17:52: Daily, [place] suppository 36 PRN, 60 supp, Constipati on, Substituti on Allowed, SUPP [place] Yes Bonnie Jyotsna 1 tab, PO, Memoria oral tablet 01-31 Zeider Q4H, PRN, l 17:52: 60 tab, Jorge Alberto 26 Headache, Substituti on Allowed, Maintenanc e, TAB [place] No Abel 1 tab, M emoria oral [...] insulin No Memo 20 unit, Kalia aida isophane-BLOWER OPERATOR 01-29 Omidvar 0.2 mL, l H [...] Ollie Rizvi tab, l 21:00: Route: PO, [place] Drug form: TAB, Q4H, Start date: 01/26/11 [...] Aisiku mL, Route: l 15:00: IVPB, Drug [place] form: INJ, ONCE, Start date: 01/26/11 10:00:00, Stop date: 01/26/11 10:00:00 potassium 2010-0 No Miles D 36 mmol, M emoria phosphate 8- Christian 12 mL, l 08:29: Route: [place] 00 IVPB, On Adm, Start date: 01/26/11 3:29:00, Duration: 1 doses or times, Stop date: 01/26/11 8:00:00 mannitol 2010-0 No Odell Voda 50 gm, Mem oria 8- Route: l 22:50: IVPB, [place] 00 ONCE, Start date: 01/25/11 17:50:00, Stop date: 01/25/11 17:50:00 heparin No Sky 5,000 Memoria 8-27 [facility] [place] unit, 1 l 21:00: mL, Route: [place] 00 SUB-Q, Drug form: INJ, Q8H, Start date: 01/25/11 16:00:00, Duration: 30 day, Stop date: 02/24/11 8:00:00 sodium 2010-0 Yes Miles D 15 mmol, 5 Me [...] 01-25 Christian 25 mL, l 04:41: Route: [place] 00 IVP, Drug Form: INJ, PRN, PRN [...] Srikanth Reeses Route: IV, l 02:00: Q12H, [place] 00 Start date: 01/24/11 21:00:00, Duration: 30 [...] Route: l 14:00: IVPB, Drug form: INJ, [id number], Start date: 01/24/11 9:00:00, Duration: 30 day, [...] 80 mg, 2 Me moria oral tablet 8-26 tab, PO, l 00:20: Daily, 30 Jorge [...] Jorge Alberto jimenez 06 Substituti on Allowed [place] Yes Bonnie Goyal 1 tab, PO, Memoria Thyroid 120 8-25 Zeider Daily, 30 l mg oral 19:28: tab, Jorge Alberto tablet 50 Substituti on Allowed, TAB docusate No Roopa Tatyana 100 mg, 1 Memoria 8-25 Ryan cap, l 14:00: Route: PO, Jorge Alberto Drug form: CAP, BID, Start date: 01/23/11 [...] 8-25 Christian tab, l 14:00: Route: PO, Drug [...] 8-25 Christian tab, l 11:00: Route: PO, [place] 00 Drug form: TAB, Q6H, Start date: [...] 8-25 Jv supp, l 10:14: Boom Route: IN, Gerda nn 00 Drug form: [...] rs 0.75 0.75 ity of MG/0.5ML MG/0.5ML [place] Subcutaneou Subcutaneou P hysici s Solution s [...] Name Observation Time Observation Value Comments Source HEIGHT 2020-02-11 149.9 cm 00:00:00 WEIGHT 2020-02-11 84.505 kg 00:00:00 Systolic blood 2020-06-04 130 mm[Hg] [facility] 10:00:00 [facility] Diastolic blood 2020-06-04 65 mm[Hg] [facility] 10:00:00 [facility] Heart rate 2020-06-04 90 /min [facility] 10:00:00 [facility] Respiratory rate 2020-06-04 27 /[facility] 10:[facility]:00 [facility] Oxygen saturation 2020-06-04 95 /min [facility] in Arterial blood 10:00:00 [facility] by Pulse oximetry [place] Body temperature 2020-06-04 36.11 [facility] 06:50:00 [facility] Body height 2020-06-04 149.9 cm [facility] 06:50:00 [facility] Body weight 2020-06-04 87.091 [facility] 06:50:00 [facility] BMI 2020-06-04 38.78 kg/m2 University 06:50:00 [facility] Systolic blood 2020-06-04 130 mm[Hg] [facility] pressure 10:00:00 [facility] Diastolic blood 2020-06-04 65 mm[Hg] University o f pressure 10:00:00 [facility] Heart rate 2020-06-04 90 /min University 10:00:00 [facility] Respiratory rate 2020-06-04 27 /min [facility] 10:00:00 [facility] Oxygen saturation 2020-06-04 95 /min [facility] of in Arterial blood 10:00:00 [facility] by Pulse oximetry Branch Body temperature 2020-06-04 36.11 [facility] 06:50:00 [facility] Body height 2020-06-04 149.9 cm [facility] 06:50:00 [facility] Body weight 2020-06-04 87.091 kg [facility] 06:50:00 [facility] BMI 2020-06-04 38.78 kg/m2 [facility] 06:50:00 [facility] Systolic blood 2020-06-03 161 mm[Hg] [facility] pressure 04:00:00 [facility] Diastolic blood 2020-06-03 74 mm[Hg] University o f pressure 04:00:00 [facility] Heart rate 2020-06-03 106 /min [facility] 04:00:00 [facility] Respiratory rate 2020-06-03 25 /min [place] of 04:00:00 [facility] Oxygen saturation 2020-06-03 95 /min [facility] of in Arterial blood 04:00:00 [facility] by Pulse oximetry Branch Body temperature 2020-06-03 36.22 [facility] [place] of 02:09:00 [facility] Body height 2020-06-03 162.6 cm [facility] 02:09:00 [facility] Body weight 2020-06-03 79.379 kg [facility] of 02:09:00 [facility] BMI 2020-06-03 30.04 kg/m2 [facility] 02:09:00 [facility] Systolic blood 2020-06-03 161 mm[Hg] [facility] pressure 04:00:00 [facility] Diastolic blood 2020-06-03 74 mm[Hg] University o f pressure 04:00:00 [facility] Heart rate 2020-06-03 106 /min [facility] 04:00:00 [facility] Respiratory rate 2020-06-03 25 /min [place] of 04:00:00 [facility] Oxygen saturation 2020-06-03 95 /min [facility] in Arterial blood 04:00:00 [facility] by Pulse oximetry Branch Body temperature 2020-06-03 36.22 [facility] [place] of 02:09:00 [facility] Body height 2020-06-03 162.6 cm University of 02:09:00 [facility] Body weight 2020-06-03 79.379 kg University of 02:09:00 [facility] BMI 2020-06-03 30.04 kg/m2 University of 02:09:00 [facility] Systolic blood 2020-05-28 149 mm[Hg] University of pressure 17:31:00 [facility] Diastolic blood 2020-05-28 48 mm[Hg] University o f pressure 17:31:00 [facility] Heart rate 2020-05-28 80 /min University of 17:31:00 [facility] Body temperature 2020-05-28 36.61 Kelsey University of 17:31:00 [facility] Respiratory rate 2020-05-28 20 /min University of 17:31:00 [facility] Oxygen saturation 2020-05-28 99 /min University of in Arterial blood 17:31:00 [facility] by Pulse oximetry [place] Body weight 2020-05-28 78.472 kg University 09:49:00 [facility] Systolic blood 2020-05-28 149 mm[Hg] University of pressure 17:31:00 [facility] Diastolic blood 2020-05-28 48 mm[Hg] University o f pressure 17:31:00 [facility] Heart rate 2020-05-28 80 /min University of 17:31:00 [facility] Body temperature 2020-05-28 36.61 Kelsey University of 17:31:00 [facility] Respiratory rate 2020-05-28 20 /min University of 17:31:00 [facility] Oxygen saturation 2020-05-28 99 /min University of in Arterial blood 17:31:00 [facility] by Pulse oximetry [place] Body weight 2020-05-28 78.472 kg University of 09:49:00 [facility] HEIGHT 2020-02-11 149.9 cm 00:00:00 WEIGHT 2020-02-11 84.505 kg 00:00:00 Heart Rate 2021-07-01 [facility] 09:24:59 Respitory Rate 2021-07-01 [facility] 09:24:59 Systolic (mm Hg) 2021-07-01 [facility] He rmann 09:23:20 Diastolic (mm Hg) 2021-07-01 [facility] H ermann 09:23:20 Heart Rate 2021-07-01 Jan Connoran n 09:23:20 Heart Rate 2021-07-01 Jan Connoran n 06:04:14 Respitory Rate 2021-07-01 [facility] Nikolas mercy 06:04:14 Systolic (mm Hg) 2021-07-01 [facility] Herberth rmann 06:04:09 Diastolic (mm Hg) 2021-07-01 [facility] Gamaliel ermann 06:04:09 Temperature Oral 2021-07-01 98.2 F [facility] Herberth rmann (F) 06:03:26 Respitory Rate 2021-07-01 [facility] Nikolas mercy 01:50:19 Systolic (mm Hg) 2021-07-01 [facility] Herberth rmann 01:50:09 Diastolic (mm Hg) 2021-07-01 [facility] Gamaliel ermann 01:50:09 Temperature Oral 2021-06-30 98.5 F [facility] Herberth rmann (F) 21:43:00 Temperature Oral 2021-06-30 98.6 F [facility] Herberth rmann (F) 18:06:00 Height 2021-06-26 149.86 cm [facility] Berto n 20:54:00 [facility]06[facility]00 BMI Calculated 2021-06-26 [facility] Nikolas mercy 20:54:00 Systolic blood 2020-08-20 130 mm[Hg] [facility] - pressure 13:00:00 [facility] Diastolic blood 2020-08-20 66 mm[Hg] [facility] - pressure 13:00:00 [facility] Heart rate 2020-08-20 83 /min [facility] - 13:00:00 [facility] Body temperature 2020-08-[address] [facility] - 13:00:00 [facility] Respiratory rate 2020-08-20 18 /min [facility] - 13:00:00 [facility] Oxygen saturation 2020-08-20 97 /min [facility] in Arterial blood 13:00:00 Medical nter by Pulse oximetry Systolic blood 2020-03-27 144 mm[Hg] [facility] pressure 12:12:00 [place] [facility] Diastolic blood 2020-03-27 64 mm[Hg] University o f pressure 12:12:00 [facility] Body temperature 2020-03-27 97.5 [degF] [facility] 12:12:00 [place] [facility] Heart Rate 2020-03-27 84 /min University 12:12:00 [place] [facility] Respiratory rate 2020-03-27 18 /min [facility] 12:12:00 [place] [facility] Respitory Rate 2020-02-27 [facility] 18:00:00 Systolic (mm Hg) 2020-02-27 [facility] 18:00:00 Diastolic (mm Hg) 2020-02-27 [facility] 18:00:00 Respitory Rate 2020-02-27 [facility] 17:00:00 Respitory Rate 2020-02-27 [facility] 16:00:00 Systolic (mm Hg) 2020-02-27 [facility] 14:00:00 Diastolic (mm Hg) 2020-02-27 [facility] 14:00:00 Systolic (mm Hg) 2020-02-27 [facility] 12:00:00 Diastolic (mm Hg) 2020-02-27 [facility] 12:00:00 Temperature Oral 2020-02-23 98.4 F [facility] (F) 01:00:00 Temperature Oral 2020-02-22 98.8 F [facility] (F) 21:35:00 Temperature Oral 2020-02-22 96.8 F [facility] (F) 18:00:00 Respitory Rate 2020-02-20 [facility] 07:00:00 Respitory Rate 2020-02-20 [facility] 06:00:00 Temperature Oral 2020-02-20 98 F [facility] (F) 05:00:00 Respitory Rate 2020-02-20 [facility] 05:00:00 Systolic (mm Hg) 2020-02-20 [facility] 05:00:00 Diastolic (mm Hg) 2020-02-20 [facility] 05:00:00 Systolic (mm Hg) 2020-02-20 [facility] 03:00:00 Diastolic (mm Hg) 2020-02-20 [facility] 03:00:00 Temperature Oral 2020-02-20 97.4 F [facility] (F) 01:00:00 Systolic (mm Hg) 2020-02-20 [facility] 01:00:00 Diastolic (mm Hg) 2020-02-20 [facility] 01:00:00 Temperature Oral 2020-02-16 98 F [facility] (F) 21:00:00 Heart Rate 2020-02-16 [facility] 12:21:00 Heart Rate 2020-02-16 [facility] 09:32:00 Heart Rate 2020-02-16 [facility] 05:09:00 Height 2020-02-15 149.86 cm [facility] 22:43:00 Weight 2020-02-15 [facility] 22:43:00 BMI Calculated 2020-02-15 [facility] 22:43:00 Heart Rate 2019-12-20 [facility] 16:56:00 [...] ermann 14:30:00 Temperature Oral 2019-11-24 99.0 F [facility] rmann (F) 12:57:00 Weight 2019-11-23 [facility] 07:25:00 BMI Calculated 2019-11-23 [facility] 07:25:00 Height 2019-11-23 149.86 cm [facility] 07:25:00 Temperature Oral 2019-11-22 97.4 F [facility] [...] [place] [facility] Height 2019-05-05 59 [in_us] [facility] 11:26:00 [place] [facility] Temperature 2019-05-05 [...] 17:05:00 Temperature Oral 2019-03-04 98.6 F [facility] Herberth rmann (F) 12:51:00 Heart Rate 2019-03-04 [facility] [...] Height 2019-01-25 59 [in_us] [facility] 08:41:00 [place] [facility] Temperature 2019-01-25 98.3 [degF] [facility] 08:41:00 [place] [facility] Temperature Oral 2019-01-10 97.6 F [...] cm Jan Connoran n 13:30:00 Weight 2018-12-24 [facility] [...] 2018-11-29 [facility] 12:44:00 Weight 2018-11-29 Jan Connoran n 12:44:00 Systolic (mm Hg) 2018-11-29 [facility] 12:44:00 Diastolic (mm Hg) 2018-11-29 [facility] 12:44:00 Respitory Rate 2018-11-29 [facility] 12:44:00 Heart Rate 2018-11-29 Jan Connoran n 12:44:00 Temperature Oral 2018-11-29 98.7 F [facility] rmann (F) 12:44:00 BP Systolic 2018-11-11 149 mm[Hg] Location: [facility] 12:31:00 Position: [place] [facility] S[facility] BP Diastolic 2018-11-11 65 mm[Hg] Location: [facility] 12:31:00 Position: [place] [facility] Height 2018-11-11 59 [in_us] [facility] 12:31:00 [place] [facility] Weight 2018-11-11 213 [lb_av] [facility] 12:31:00 [place] [facility] Body Mass Index 2018-11-11 43.02 kg/m2 University o f Calculated 12:31:00 [place] [facility] Temperature 2018-11-11 97.6 [degF] Method: Oral [facility] 12:31:00 [place] [facility] Heart Rate 2018-11-11 74 /min [facility]: [facility] 12:31:00 Apical; [place] [facility] BP Systolic 2018-10-14 164 mm[Hg] Location: [facility] 12:27:00 Position: [place] [facility] S[facility] BP Diastolic 2018-10-14 68 mm[Hg] Location: [facility] 12:27:00 Position: [place] [facility] Height 2018-10-14 59 [in_us] [facility] 12:27:00 [place] [facility] Weight 2018-10-14 215 [lb_av] [facility] 12:27:00 [place] [facility] Body Mass Index 2018-10-14 43.43 kg/m2 University o f Calculated 12:27:00 [place] [facility] Temperature 2018-10-14 98.5 [degF] Method: Oral [facility] 12:27:00 [place] [facility] Heart Rate 2018-10-14 84 /min [facility] 12:27:00 Apical; [place] [facility] Systolic [...] 23:07:00 BP Systolic 2018-09-21 136 mm[Hg] Location: [facility] 11:28:00 [place] [facility] BP Diastolic 2018-09-21 88 mm[Hg] Location: [facility] 11:28:00 [place] [facility] Height 2018-09-21 59 [in_us] University 11:28:00 [place] [facility] Weight 2018-09-21 205 [lb_av] [facility] 11:28:00 [place] [facility] Body Mass Index 2018-09-21 41.41 kg/m2 University o f Calculated 11:28:00 [place] [facility] Temperature 2018-09-21 96.8 [degF] Method: Oral University 11:28:00 [place] [facility] Heart Rate 2018-09-21 84 /min [facility] 11:28:00 Apical; [place] [facility] Temperature [...] Berto n 13:11:00 Height 2018-09-15 149.86 cm Jan [facility] n 08:55:00 Height 2018-09-15 149.86 cm [...] mercy 00:50:00 Temperature Oral 2018-08-20 98.0 F [facility] rmann (F) 00:50:00 Temperature Oral 2018-08-19 97.9 F [facility] rmann (F) 20:51:00 Respitory Rate 2018-08-19 [facility] 19:00:00 Temperature Oral 2018-08-19 97.8 F [facility] rmann (F) 17:23:00 Systolic (mm Hg) [...] n 03:09:00 Temperature Oral 2011-02-19 97.5 F [facility] Herberth rmann (F) 03:09:00 Diastolic (mm Hg) 2011-02-18 [facility] 20:00:00 Temperature Oral 2011-02-18 98.4 F [facility] (F) 20:00:00 Heart Rate 2011-02-18 [facility] 20:00:00 Respitory Rate 2011-02-18 [facility] 20:00:00 Systolic (mm Hg) 2011-02-18 [facility] 20:00:00 Height 2011-01-31 149.86 cm [facility] Berto n 22:02:00 Weight 2011-01-31 [facility] Berto n 22:02:00 Systolic (mm Hg) 2011-01-31 [facility] He rmann 12:46:00 Diastolic (mm Hg) 2011-01-31 [facility] H ermann 12:46:00 Peripheral Pulse 2011-01-31 [facility] Rate 12:46:00 Respitory Rate 2011-01-31 [facility] 12:46:00 Temperature Oral 2011-01-31 98.5 F [facility] Herberth rmann (F) 12:46:00 Peripheral Pulse 2011-01-31 [facility] He rmann Rate 11:21:00 Systolic (mm Hg) 2011-01-31 [facility] 11:21:00 Diastolic (mm Hg) 2011-01-31 [facility] H ermann 11:21:00 Diastolic (mm Hg) 2011-01-31 [facility] H ermann 10:58:00 Peripheral Pulse 2011-01-31 [facility] He rmann Rate 10:58:00 Systolic (mm Hg) 2011-01-31 [facility] 10:58:00 Respitory Rate 2011-01-31 [facility] 10:35:00 Temperature Oral 2011-01-31 97.8 F [facility] (F) 10:35:00 Respitory Rate 2011-01-31 [facility] 08:28:00 Temperature Oral 2011-01-31 98.1 F [facility] Herberth rmann (F) 08:28:00 Height 2011-01-23 149.86 cm Jan Thomson n 09:37:00 Weight 2011-01-23 Jan Thomson n 09:37:00 Procedures Procedure Date / Time Performing Source Performed Clinician REFERRAL- REQUEST/RESPONSE 2021-07-08 Doctor Unassigned, Un [facility] 06:01:00 [place] [facility] [L] CBC With Diff/Platelet 2021-05-16 [facility] 00:00:00 Physicians [QL] CMP W/EGFR 2021-05-16 [facility] 00:00:00 Physicians [QL] CBC (INCLUDES DIFF/PLT) 2021-03-06 [facility] 00:00:00 Physicians [QL] CMP W/EGFR 2021-03-06 [facility] 00:00:00 Physicians POCT-GLUCOSE METER 2020-08-[address] [facility] - 13:06:00 [facility] POCT-GLUCOSE METER 2020-08-[address] [facility] - 06:15:00 [facility] HEPATIC FUNCTION PANEL 2020-08-[address] [facility] - 05:01:00 [facility] PROTHROMBIN TIME/INR 2020-08-20 Willem, Martinez [facility] 05:01:00 [facility] CBC W/PLT COUNT & AUTO 2020-08-[address] [facility] [facility] - DIFFERENTIAL 05:01:00 [facility] BASIC METABOLIC PANEL (7) 2020-08-[address] [facility] - 05:01:00 [facility] CBC W/PLT COUNT & AUTO 2020-08-[address] [facility] - DIFFERENTIAL 05:01:00 [facility] POCT-GLUCOSE METER 2020-08-[address] [facility] - 21:02:00 [facility] POCT-GLUCOSE METER 2020-08-[address] [facility] - 17:38:00 [facility] POCT-GLUCOSE METER 2020-08-[address] [facility] - 11:37:00 [facility] BASIC METABOLIC PANEL (7) 2020-08-[address] [facility] - 06:10:00 [facility] HEPATIC FUNCTION PANEL 2020-08-19 Willem, Martinez [facility] - 06:10:00 [facility] PROTHROMBIN TIME/INR 2020-08-19 Willem, Martinez [facility] - 06:10:00 [facility] CBC W/PLT COUNT & AUTO 2020-08-19 Florian Aiyana [facility] - DIFFERENTIAL 06:10:00 [facility] CBC W/PLT COUNT & AUTO 2020-08-[address] [facility] - DIFFERENTIAL 06:10:00 [facility] (MANUAL DIFFERENTIAL) 2020-08-[address] [facility] - 06:10:00 [facility] POCT-GLUCOSE METER 2020-08-[address] [facility] - 05:53:00 [facility] POCT-GLUCOSE METER 2020-08-[address] [facility] - 21:17:00 [facility] POCT-GLUCOSE METER 2020-08-[address] [facility] - 17:26:00 [facility] US ABDOMEN LIMITED 2020-08-[address] [facility] - 16:00:00 [facility] XR ABDOMEN / KUB 1 VIEW 2020-08-[address] [facility] - 13:35:[address] [facility] POCT-GLUCOSE METER 2020-08-[address] [facility] - 12:41:00 [facility] HEMOGLOBIN A1C 2020-08-18 Willem, Martinez [facility] - 11:33:00 [facility] BASIC METABOLIC PANEL (7) 2020-08-18 Willem, Martinez [facility] - 10:59:00 [facility] HEPATIC FUNCTION PANEL 2020-08-18 Willem, Martinez [facility] - 10:59:00 [facility] PROTHROMBIN TIME/INR 2020-08-18 Willem, Martinez [facility] - 10:59:00 [facility] LIPID PANEL 2020-08-[address] [facility] - 10:59:00 [facility] CBC W/PLT COUNT & AUTO 2020-08-18 Willem, Martinez [facility] - DIFFERENTIAL 10:59:00 [facility] LIPASE 2020-08-18 Aiyana Greenwood [facility] - 10:59:00 [facility] CBC W/PLT COUNT & AUTO 2020-08-18 [facility]ille[facility]artinez [facility] - DIFFERENTIAL 10:59:00 [facility] SARS-COV2/RT-PCR ([facility] & REF 2020-08-18 Aiyana Greenwood [facility] - LABS) 10:58:00 [facility] POCT-GLUCOSE METER 2020-08-18 WillemMartinez [facility] - 06:03:00 [facility] REPORT OF PROCEDURE - 2020-08-18 Provider, Jane YELITZA [facility] - ENDOSCOPY SCAN 00:00:00 Scanning [facility] CT CERVICAL SPINE WO CONTRAST 2020-06-04 Chel Garrido [facility] 08:04:21 [facility] [address] HEAD WO CONTRAST 2020-06-04 Chel Garrido [facility] 08:04:21 [facility] [place] XR CHEST 1 VW 2020-06-04 Chel Garrido [facility] 08:04:04 Medical Branch XR WRIST 3+ VW RIGHT 2020-06-04 Chel Garrido [facility] 08:04:[address] ABDOMEN PELVIS W CONTRAST 2020-06-03 Chel Garrido [facility] 03:14:00 [facility] URINALYSIS 2020-06-03 Chel Garrido [facility] 02:47:00 [facility] LIPASE 2020-06-03 Chel Garrido [facility] 02:16:00 [facility] MAGNESIUM 2020-06-03 Chel Garrido [facility] 02:16:00 [facility] TROPONIN I 2020-06-03 Chel Garrido [facility] 02:16:00 [facility] HEPATIC FUNCTION PANEL 2020-06-03 Chel Garrido [facility] ([id number]) (ALB,T.PRO,BILI 02:16:00 [facility] T,BU/BC,ALT,AST,ALK PHOS) BASIC METABOLIC PANEL (NA, K, 2020-06-03 Chel Garrido [facility] CL, CO2, GLUCOSE, BUN, 02:16:00 Medical [place] CREATININE, CA) CBC WITH DIFF 2020-06-03 Chel Garrido [facility] 02:16:00 [facility] LACTIC ACID WHOLE BLOOD 2020-06-03 Chel Garrido [facility] 02:16:00 [facility] COVID-19 (ID NOW RAPID 2020-06-03 Chel Garrido [facility] TESTING) 02:16:00 [facility] NOTICE OF PRIVACY PRACTICES 2020-05-28 Doctor Unassigned, [facility] 19:34:22 [facility] CONSENT/REFUSAL FOR DIAGNOSIS 2020-05-28 Doctor Unassigned, [facility] AND TREATMENT 19:34:04 [facility] ASSIGNMENT OF BENEFITS 2020-05-28 Doctor Unassigned, [facility] 19:33:47 [place] [facility] ECHO ROUTINE W/DOPPLER COLOR 2020-05-28 Hernán [facility] 15:44:03 [facility] POCT GLUCOSE (AUTOMATED) 2020-05-28 [facility] 13:50:00 [facility] TOTAL IRON BINDING CAPACITY 2020-05-28 [facility] 09:35:00 [facility] TROPONIN I 2020-05-28 [facility] 09:35:00 [facility] BASIC METABOLIC PANEL (NA, K, 2020-05-28 Hernán [facility] CL, CO2, GLUCOSE, BUN, 09:35:00 [facility] ranch CREATININE, CA) CBC WITH DIFF 2020-05-28 [facility] 09:35:00 [facility] PROCALCITONIN 2020-05-28 [facility] 09:35:00 [facility] COVID-19 (ID NOW RAPID 2020-05-28 Van Rafael [facility] TESTING) 01:09:00 [facility] LAB ONLY COVID INTERPRETATION 2020-05-28 Rafael Araujo [facility] 01:09:00 [facility] URINALYSIS 2020-05-28 [facility] 00:40:00 [facility] LACTIC ACID WHOLE BLOOD 2020-05-28 Rafael Araujo [facility] 00:28:00 [facility] BLOOD CULTURE SCREEN 2020-05-28 Van [facility] 00:27:00 [facility] BLOOD CULTURE SCREEN 2020-05-28 Van [facility] 00:10:[address] [facility] [address] TRAUMA HEAD WO CONTRAST 2020-05-27 Rafael Araujo [facility] 23:54:[address] TRAUMA THORAX W CONTRAST 2020-05-27 [facility] 23:54[facility] TRAUMA CERVICAL SPINE WO 2020-05-27 Van [facility] CONTRAST 23:54:[address] TRAUMA THORACIC SPINE WO 2020-05-27 Van Rafael [facility] CONTRAST 23:54:[address] TRAUMA ABDOMEN PELVIS W 2020-05-27 Rafael Araujo [facility] CONTRAST 23:54:[address] TRAUMA LUMBAR SPINE WO 2020-05-27 Van Rafael [facility] CONTRAST 23:54:[address] MAXILLOFACIAL/MANDIBLE WO 2020-05-27 Rafael Araujo [facility] CONTRAST 23:54:32 [facility] HB CREATININE BLOOD 2020-05-27 Van Rafael [place] [facility] [place] 22:54:00 [facility] MAGNESIUM 2020-05-27 Van [facility] xa 22:39:00 [facility] FERRITIN SERUM 2020-05-27 Hernán [facility] xa 22:39:00 [facility] IRON 2020-05-27 [facility] xa 22:39:00 [facility] TROPONIN I 2020-05-27 [facility] 22:39:00 [facility] THYROID STIMULATING HORMONE 2020-05-27 [facility] 22:39[facility] HEPATIC FUNCTION PANEL 2020-05-27 [facility] ([id number] (ALB,T.PRO,BILI 22:39:00 [facility] T,BU/BC,ALT,AST,ALK PHOS) BASIC METABOLIC PANEL (NA, K, 2020-05-27 Rafael Araujo [facility] CL, CO2, GLUCOSE, BUN, 22:39:00 [facility] ranch CREATININE, [place]) LIPID PANEL ([id number])(TOTAL 2020-05-27 Hernán [facility] CHOLESTEROL, TRIGLYCERIDES, 22:39:00 [facility] HDL) CBC WITH DIFF 2020-05-27 Van [facility] x[facility] 22:39:00 Medical Branch GLYCOSYLATED HEMOGLOBIN (A1C) 2020-05-27 Hernán [facility] 22:39:00 [facility] PROTHROMBIN TIME / INR 2020-05-27 Rafael Araujo [facility] 22:39:00 [facility] Branch ACTIVATED PARTIAL THRMPLAS 2020-05-27 Rafael Araujo [facility] DELILAH 22:39:00 Medical Branch N-TERMINAL PRO-BNP 2020-05-27 a[facility]n [facility] 22:39:00 Medical Branch CREATINE KINASE 2020-05-27 [facility] 22:39:00 [facility] LIPASE 2020-05-27 [facility] 22:39:00 [facility] Branch [QL] CBC (INCLUDES DIFF/PLT) 2020-03-27 [facility] 00:00:00 Physicians Transcatheter retrieval, 2019-02-21 Feli Azul percutaneous, of 20:58:00 intravascular foreign body (eg, fractured venous or arterial catheter), includes radiological supervision and interpretation, and imaging guidance (ultrasound or fluoroscopy), when performed [place] Insertion 2019-01-28 [facility] 00:00:00 Physicians XRAY Chest 2 views [id number] 2018-11-12 [facility] 00:00:00 Physicians IVIG Infusion Therapy 2018-11-11 [facility] 00:00:00 Physicians [QLH] CBC (INCLUDES DIFF/PLT) 2018-11-11 [facility] Physicians [QL] CMP W/EGFR 2018-11-11 [facility] exas 00:00:00 Physicians MA Bone Density Scan [id number] 2018-10-14 [facility] 00:00:00 Physicians Selective catheter placement, 2018-08-19 Ia morial Jorge Alberto vertebral artery, unilateral, 13:02:00 with angiography of the ipsilateral vertebral circulation and all associated radiological supervision and interpretation, includes angiography of the cervicocerebral arch, when performed Insertion or Replacement of 2011-01-26 Kalia rial Jorge Alberto Skull Tongs or Halo Traction 05:00:00 Device Other Excision or Destruction 2011-01-26 Me morial Jorge Alberto of Lesion or Tissue of Brain 05:00:00 Excision of Lesion or Tissue 2011-01-24 Mem orial [place] of Cerebral Meninges 05:00:00 Intracranial Pressure 2011-01-24 [facility] Monitoring 05:00:00 Transfusion of Packed Cells 2011-01-24 Kalia rial [place] 05:00:00 Cervical laminectomy [facility] section [facility] n Resection [facility] Shunt construction [facility] Tonsillectomy [facility] History of [employer] Ventriculoperitoneal shunt Physi cians creation Plan of Care Planned Activity Planned Date Details Comments Source Future Scheduled 2027-02-[address] [facility] [facility] Test 00:00:00 malignant neoplasm Medical C enter of colon (procedure) [code = 603999721] Future Scheduled 2027-02-[address] [facility] [facility] Test 00:00:00 malignant neoplasm Medical C enter of colon (procedure) [code = 410889180] Future Scheduled 2021-01-[address] [facility] - Test 00:00:00 (#1) [code = [facility] INFLUENZA VACCINE (#1)] Future Scheduled 2021-01-[address] [facility] - Test 00:00:00 (#1) [code = [facility] INFLUENZA VACCINE (#1)] Diagnostic Test 2020-08-15 [QL] CBC (INCLUDES Univer sity of Pending 00:00:00 DIFF/PLT) [code = [place] [facility] [QL] CBC (INCLUDES DIFF/PLT)] Diagnostic Test 2020-07-18 [QL] CBC (INCLUDES Univer sity of Pending 00:00:00 DIFF/PLT) [code = [place] [facility] [QL] CBC (INCLUDES DIFF/PLT)] Diagnostic Test 2020-06-17 [QL] CBC (INCLUDES Univer sity of Pending 00:00:00 DIFF/PLT) [code = [place] [facility] [QL] CBC (INCLUDES DIFF/PLT)] Diagnostic Test 2020-05-17 [QL] CBC (INCLUDES Univer sity of Pending 00:00:00 DIFF/PLT) [code = [place] [facility] [QL] CBC (INCLUDES DIFF/PLT)] Diagnostic Test 2020-04-17 [QL] CBC (INCLUDES Univer sity of Pending 00:00:00 DIFF/PLT) [code = [facility] [QL] CBC (INCLUDES DIFF/PLT)] Diagnostic Test 2020-04-10 [QL] CBC (INCLUDES Univer sity of Pending 00:00:00 DIFF/PLT) [code = [facility] [QL] CBC (INCLUDES DIFF/PLT)] Future Scheduled 2020-04-03 [QL] CBC (INCLUDES Unive rsity of Test 00:00:00 DIFF/PLT) [code = [facility] [QL] CBC (INCLUDES DIFF/PLT)] Diagnostic Test 2020-04-03 [QL] CBC (INCLUDES Univer sity of Pending 00:00:00 DIFF/PLT) [code = [facility] [...] (INCLUDES 04/03/2020, DIFF/PLT)] 04/10/2020 ... Diagnostic Test 2018-11-12 XRAY Chest 2 views Univer sity of Pending 00:00:00 11937 [code = 66280] [facility] Future Scheduled 2014-06-[address] [facility] Test 00:00:00 WELLNESS (YEAR 2 or Medical Center FIRST YEAR if no IPPE) [code = MEDICARE ANNUAL WELLNESS (YEAR 2 or FIRST YEAR if no IPPE)] Future Scheduled 2014-06-[address] [facility] Test 00:00:00 WELLNESS (YEAR 2 or Medical Center FIRST YEAR if no IPPE) [code = MEDICARE ANNUAL WELLNESS (YEAR 2 or FIRST YEAR if no IPPE)] Future Scheduled 2012-01-10 PNEUMOCOCCAL 65+ YRS [facility] - Test 00:00:00 (1 of 1 - Medical Center [id number] PCV13) [code = PNEUMOCOCCAL 65+ YRS (1 of 1 - [id number]_[id number] PCV13)] Future Scheduled 2012-01-10 PNEUMOCOCCAL 65+ YRS [facility] - Test 00:00:00 (1 of 1 - Medical Center [id number]_Ijsvmwu PCV13) [code = PNEUMOCOCCAL 65+ YRS (1 of 1 - [id number]_[id number] PCV13)] Future Scheduled 1997 SHINGLES VACCINES ([address] [facility] - Test 00:00:00 of 2) [code = Medical Center SHINGLES VACCINES (1 of 2)] Future Scheduled 1997 SHINGLES VACCINES ([address] [facility] - Test 00:00:00 of 2) [code = Medical Center SHINGLES VACCINES (1 of 2)] Future Scheduled 1966 DTAP/TDAP/TD [facility] 00:[facility] VACCINES (1 - Tdap) Medical Center [code = DTAP/TDAP/TD VACCINES (1 - Tdap)] Future Scheduled 1966 DTAP/TDAP/TD [facility] Test 00:[facility]:00 VACCINES (1 - Tdap) Medical Center [code = DTAP/TDAP/TD VACCINES (1 - Tdap)] Future Scheduled [address] [facility] - Test 00:00:00 SCREENING [code = Medical Ce nter HEPATITIS C SCREENING] Future Scheduled [address] [facility] - Test 00:00:00 SCREENING [code = Medical Ce nter HEPATITIS C SCREENING] Future Scheduled 1959 COVID-19 VACCINE (1) [facility] - Test 00:00:00 [code = COVID-[address] VACCINE (1)] Future Scheduled 1959 COVID-19 VACCINE (1) [facility] - Test 00:00:00 [code = COVID-[address] VACCINE (1)] Future Scheduled [address] [facility] 00:00:00 malignant neoplasm Medical C enter of breast (procedure) [code = 314033136] Future Scheduled [address] [facility] Test 00[facility]00:00 malignant neoplasm Medical C enter of breast (procedure) [code = 272164452] Encounters Start End Encounter Admission Attending Care Care Encounter Source Date/Time Date/Time Type Type Clinicians Facility Department ID 2021-03-30 Emergency [facility] [id number] Univers 14:38:07 ity [facility] 2021-03-30 Emergency [facility] [id number] Univers 14:33:26 [facility] 2020-08-18 Inpatient ER WILLEM, [facility] Gastro [id number] [facility] 05:35:00 MARTINEZ 2020-02-11 Inpatient ER NALAM, [facility] Neurology [id number] [facility] 21:44:00 TAMIKO 2019-02-05 Inpatient U [facility] MED [id number] [facility] 08:54:00 2018-12-24 Inpatient U [facility] [id number] [facility] 18:32:00 2018-08-16 Inpatient E [facility] [id number] [facility] 23:35:00 2021-07-16 2021-07-16 Outpatient R TJ [place] [facility] [id number] Univers 13:40:00 13:40:00 TJ [place] [id number] ity [facility] 2021-07-08 2021-07-08 Telephone NIRALI Drake 6410 [id number] [id number] [place] 00:00:00 00:00:00 Savannah ROBERSON [id number] Health [id number] [id number] 2021-07-08 2021-07-08 Orders Doctor ALHAJI 1.2.840.114 [id number] [facility] 00:00:00 00:00:00 Only Unassigned, HIEU [id number] ity of [place] [facility] 4.2.7.2.686 [place] as [id number] [address] 2021-06-26 2021-07-04 Inpatient U SMART[id number] 12:55:00 18:02:00 ANDREE 2021-06-26 2021-06-26 [id number] 18:55:00 [facility] 26 l [facility] 2021-05-16 2021-05-16 Appointmen NIRALI DRAKE Neurology - [id number] [facility] 09:30:00 09:30:00 lisette CORRIGAN M.D. [facility] Dougie [facility] M.D. [place] [facility] 2020-08-18 2020-08-20 Hospital ER WillemMartinez Marielos [facility] [id number] 05:35:00 15:52:00 Encounter Florian Aiyana [facility] 2020-07-19 2020-07-19 [facility] 1.2.840.114 [id number] 00:00:00 00:00:00 Tj Robert Howard [id number] [place] [id number] Professio [id number] [facility] 2020-07-19 2020-07-19 [facility] 1.2.840.114 [id number] [facility] 00:00:00 00:00:00 Tj Jones Anita [id number] ity [facility] [id number] [facility] Professio [id number] [address] 2020-06-26 2020-06-26 Appointmen NOELLE [facility] - [id number] [facility] 11:00:00 11:00:00 t; [place] CORRIGAN [place] [facility] M.D. [facility] ans 2020-06-04 2020-06-04 Emergency [facility] 1.2.840.114 [id number] 00:45:00 04:53:00 Chel Howard [id number] [place] [id number] [place] [id number] [facility] 2020-06-04 2020-06-04 [facility] 1.2.840.114 [id number] Univers 00:45:00 04:53:00 Chel Howard [id number] ity of [place] 4.2.7.2.686 [place] [id number] [facility] [address] 2020-06-02 2020-06-02 [facility] 1.2.840.114 [id number] 20:01:00 23:09:00 Chel Howard [id number] [place] [id number] [place] [id number] [facility] 2020-06-02 2020-06-02 Emergency [facility] 1.2.840.114 [id number] Univers 20:01:00 23:09:00 Chel Paulino Howard [id number] ity of [place] 4.2.7.2.686 [facility] [id number] [place] 070384 Branch 2020-05-30 2020-05-30 Transition Marta Joshuapatricia 1.2.840.114 [id number] 00:00:00 00:00:00 of Care Veronica Velazquezy [id number] [place] 4.2.7.2.686 [id number] [facility] 2020-05-30 2020-05-30 Transition RhondaMarta brewerpatricia 1.2.840.114 [id number] Univers 00:00:00 00:00:00 of Care Veronica Velazquezy [id number] i ty of [place] 4.2.7.2.686 [facility] [id number] [facility] [address] 2020-05-27 2020-05-28 Emergency Rafael Araujo [facility] 1.2.840. 114 [id number] 15:47:00 19:03:00 HernánVernajune Howard [id number] [place] [id number] [place] [phone] [facility] 2020-05-27 2020-05-28 Emergency Rafael Araujo [facility] 1.2.840. 114 [id number] Univers 15:47:00 19:03:00 HernánVernajune Howard [id number] ity of [place] 4.2.7.2.686 [facility] [id number] [place] [address] Branch 2020-05-27 2020-05-27 Emergency X VAN [facility] ERT [id number] Univers 15:47:00 15:47:00 RAFAEL reece [facility] 2020-03-27 2020-03-27 AppointNIRALI Bueno [facility] - [id number] Univers 11:30:00 11:30:00 lisette CORRIGAN M.D. [place] Jo-Ann Farfan M.D. [facility] ans 2020-02-15 2020-02-27 Inpatient Critical access hospital [id number] Memoria 21:11:00 19:07:[address] [place] 2020-02-15 2020-02-27 Inpatient U CLAUDIA, [facility] [id number] [facility] 16:11:00 14:07:00 DOLORES 2020-01-05 2020-01-06 Outpt Diag nullFlavo [facility] [id number] Memoria 16:40:00 04:59:00 Services r Outpatient 05 l Imaging [facility] 2020-01-05 2020-01-05 NIRALI Olson [facility] [id number] Univers 10:00:00 10:00:00 t; Cheko CORRIGAN [facility] Dougie CORRIGAN M.D. Physi ci ans 2019-11-22 2019-12-20 Inpatient nullFlavo [place] [id number] Memoria 10:06:00 20:30:00 r [place] 75 l [facility] 2019-11-22 2019-12-20 Inpatient E CAMILLE, [facility] MED [id number] [facility] 12:06:00 15:30:00 ARSHA 2019-11-29 2019-11-29 AppointNIRALI Bueno [facility] [id number] Univers 11:00:00 11:00:00 t; Cheko CORRIGAN [facility] Dougie CORRIGAN M.D. Physi ci ans 2019-05-05 2019-05-05 NIRALI Olson Neurology - [id number] Univers 11:30:00 11:30:00 t; Cheko CORRIGAN [place] [facility]ie CORRIGAN M.D. [place] [facility] 2019-02-05 2019-03-04 Inpatient nullFlavo [place] [id number] Memoria 13:54:00 23:18:00 r [place] 50 l [facility] 2019-01-25 2019-01-25 NIRALI Olson Neurology - [id number] Univers 08:00:00 08:00:00 t; Cheko CORRIGAN [place] [facility] Dougie CORRIGAN M.D. [place] [facility] 2018-12-24 2019-01-10 Inpatient nullFlavo [facility] [id number] Memoria 23:32:00 20:53:00 r [place] 07 l [facility] 2018-11-29 2018-11-29 Emergency nullFlavo [facility] [id number] Memoria 12:33:57 17:20:00 r [place] 06 [facility] 2018-11-29 2018-11-29 Emergency E [facility] [id number] [facility] 07:33:00 07:33:00 2018-11-18 2018-11-19 Outpt Diag nullFlavo [facility] [id number] Memoria 14:50:00 04:59:00 Services r Outpatient 04 l Imaging [facility] 2018-11-11 2018-11-11 [facility] - [id number] [facility] 11:00:00 11:00:00 t; [place] [facility]IGAN [place] [facility]IG[facility] [place] [facility] 2018-10-21 2018-10-22 Outpt Diag nullFlavo [facility] [id number] Memoria 15:21:00 04:59:00 Services r Outpatient 03 l [facility] 2018-10-14 2018-10-14 [facility] Neurology [id number] [facility] 11:30:00 11:30:00 t; Cheko CORRIGAN [place] Cheko CORRIGAN [facility] 2018-09-21 2018-09-23 Observatio nullFlavo [facility] [id number] Memoria 23:06:00 21:20:00 n r Jorge Alberto 13 [facility] 2018-09-21 2018-09-21 Outpatient U [facility] [id number] [facility] 18:06:00 18:06:00 2018-09-21 2018-09-21 [id number] [facility] 10:30:00 10:30:00 t; Cheko CORRIGAN [place] Che[place] CORRIGAN Physi ans 2018-09-12 2018-09-20 Inpatient nullFlavo [facility] [id number] Memoria 20:01:00 21:23:00 sue Azul 01 [facility] 2018-09-09 2018-09-10 Inpatient nullFlavo [facility] [id number] Memoria 16:57:00 03:17:00 r Jorge Alberto 00 [facility] 2018-09-12 2018-09-10 Inpatient U [facility] 9101 [facility] 15:01:00 00:20:00 2018-09-09 2018-09-08 Inpatient U [facility] MED [id number] Memoria 11:57:00 09:51:00 l Jorge [facility] 2018-08-16 2018-08-20 Inpatient nullFlavo [facility] [id number] Memoria 20:03:00 02:09:00 r Jorge Alberto 05 l [facility] 2018-08-16 2018-08-18 Phone nullFlavo MNA [id number] Memoria 15:11:00 04:59:59 Message r Neurosurger 00 l y [facility] 2017-02-23 2017-02-23 Outpatient DENISE FAYE SLE [id number] SLE 00:00:00 00:00:00 YOGESH 2011-03-22 2011-03-25 Inpatient nullFlavo [facility] [id number] Memoria 10:52:00 19:00:00 r Medical 02 l [facility] 2011-03-14 2011-03-15 OU nullFlavo [facility] [id number] Memoria 04:31:00 14:00:00 r Medical 01 l [facility] 2011-02-26 2011-03-07 IR MHIE MHIE [id number] Memoria 15:05:00 14:40:00 69 l [place] 2011-02-19 2011-02-26 Inpatient nullFlavo [facility] [place] [id number] Memoria 15:00:00 15:00:00 r Medical 00 l [facility] 2011-01-31 2011-02-19 IR MHIE MHIE [id number] Memoria 16:47:00 15:00:00 44 l [place] 2011-01-23 2011-01-31 Inpatient nullFlavo [facility] [id number] Memoria 04:29:00 14:16:00 r Medical 67 l [facility] 2011-01-23 2011-01-23 AA nullFlavo MH [place] [id number] Memoria 04:16:00 23:59:00 r Medical 70 l [facility] Results Test Description Test Time Test Comments Results Result Comments Source CHEM PANEL 2021-06-29 09:39:00 Test Item Value Reference Range Interpretation Comme nts Phosphorus (test code = Phosphorus) 3.1 2.5-4.5 [place] 808542-01-29 09:39:00 Test Item Value Reference Range Interpretation Comments Glucose Lvl (test code = Glucose Lvl) 92 70-99 [place] 808542-01-29 09:39:00 Test Item Value Reference Range Interpretation Comments BUN (test code = BUN) 23 7-22 [place] 808542-01-29 09:39:00 Test Item Value Reference Range Interpretation Comments Creatinine Lvl (test code = Creatinine 0.82 0.50-1.40 Lvl) [place] 808542-01-29 09:39:00 Test Item Value Reference Range Interpretation Comments Sodium Lvl (test code = Sodium Lvl) 142 135-145 [place] 808542-01-29 09:39:00 Test Item Value Reference Range Interpretation Comments Potassium Lvl (test code = Potassium 4.0 3.5-5.1 Lvl) [place] 808542-01-29 09:39:00 Test Item Value Reference Range Interpretation Comments Chloride Lvl (test code = Chloride Lvl) 107 95-109 [place] 808542-01-29 09:39:00 Test Item Value Reference Range Interpretation Comments CO2 (test code = CO2) 32 24-32 [place] 808542-01-29 09:39:00 Test Item Value Reference Range Interpretation Comments AGAP (test code = AGAP) 7.0 10.0-20.0 [place] 808542-01-29 09:39:00 Test Item Value Reference Range Interpretation Comments Calcium Lvl (test code = Calcium Lvl) 8.9 8.5-10.5 [place] 808542-01-29 09:39:00 Test Item Value Reference Range Interpretation Comments eGFR (test code = eGFR) 71 [place] 808542-01-29 09:39:00 Test Item Value Reference Range Interpretation Comments Magnesium Lvl (test code = Magnesium 2.2 1.8-2.4 Lvl) [place] 085392-01-29 09:39:00 Test Item Value Reference Range Interpretation Comments WBC (test code = WBC) 10.9 3.7-10.4 [place] 085392-01-29 09:39:00 Test Item Value Reference Range Interpretation Comments RBC (test code = RBC) 4.13 4.20-5.40 [facility]62[facility]64-48 09:39:00 Test Item Value Reference Range Interpretation Comments Hgb (test code = Hgb) 13.5 12.0-16.0 [facility]manIjzihmoHIKHZRRQDX5027-08-79 09:39:00 Test Item Value Reference Range Interpretation Comments Hct (test code = Hct) 40.0 36.0-48.0 [facility]manShyhhfrJHGWJBVYTK7800-17-12 09:39:00 Test Item Value Reference Range Interpretation Comments MCV (test code = MCV) 97.0 80.0-98.0 [facility]manBlmhswpYEODYOHZFW5835-70-27 09:39:00 Test Item Value Reference Range Interpretation Comments MCH (test code = MCH) 32.7 pg 27.0-31.0 [facility]manCnvsbfeQPEHVPUDEH2147-00-63 09:39:00 Test Item Value Reference Range Interpretation Comments MCHC (test code = MCHC) 33.7 32.0-36.0 [facility]manHdzxqblQWVAHYBYTS9872-32-28 09:39:00 Test Item Value Reference Range Interpretation Comments RDW (test code = RDW) 16.2 11.5-14.5 [facility]aufmanUlayekbZSXHMGNXMY0634-70-90 09:39:00 Test Item Value Reference Range Interpretation Comments Platelet (test code = Platelet) 107 133-450 [facility]aufmanHrznytvJYKKOVLXZO1222-67-40 09:39:00 Test Item Value Reference Range Interpretation Comments MPV (test code = MPV) 8.6 7.4-10.4 [facility]aufmanSifsrroTBWZZCODCV4717-29-41 09:39:00 Test Item Value Reference Range Interpretation Comments Segs (test code = Segs) 85.8 45.0-75.0 [facility]aufmanOilljgnHMIABSFXWK2472-70-62 09:39:00 Test Item Value Reference Range Interpretation Comments Lymphocytes (test code = Lymphocytes) 7.2 20.0-40.0 [place] [facility] KaufmanOyijskaCFTNBFSXHU0081-72-58 09:39:00 Test Item Value Reference Range Interpretation Comments Monocytes (test code = Monocytes) 6.3 2.0-12.0 [facility] KaufmanBboewpxFETKCNIWLB2175-92-47 09:39:00 Test Item Value Reference Range Interpretation Comments Eosinophils (test code = 0.3 See_Comment [A utomated message] The Eosinophils) system which ge nerated this result tra nsmitted reference range : <=4.0. The reference r evelyn was not used to int erpret this result as normal/abnormal . [place] 085392-01-29 09:39:00 Test Item Value Reference Range Interpretation Comments Basophils (test code = 0.4 See_Comment [Aut omated message] The Basophils) system which ge nerated this result tra nsmitted reference range : <=1.0. The reference r evelyn was not used to int erpret this result as normal/abnormal . [place] 085392-01-29 09:39:00 Test Item Value Reference Range Interpretation Comments Neutrophils # (test code = Neutrophils 9.4 1.5-8.1 #) [place] 085392-01-29 09:39:00 Test Item Value Reference Range Interpretation Comments Lymphocytes # (test code = Lymphocytes 0.8 1.0-5.5 #) [place] [address]-01-29 09:39:00 Test Item Value Reference Range Interpretation Comments Monocytes # (test code 0.7 See_Comment [Aut omated message] The = Monocytes #) system which generated this result tra nsmitted reference range : <=0.8. The reference r evelny was not used to int erpret this result as normal/abnormal . [facility]2022-01-28 19:33:00 Test Item Value Reference Range Interpretation Comments Glucose Lvl (test code = Glucose Lvl) 541 70-99 [place] 808542-01-28 19:33:00 Test Item Value Reference Range Interpretation Comments BUN (test code = BUN) 25 7-22 [place] [address]-01-28 19:33:00 Test Item Value Reference Range Interpretation Comments Creatinine Lvl (test code = Creatinine 1.13 0.50-1.40 Lvl) [place] 808542-01-28 19:33:00 Test Item Value Reference Range Interpretation Comments Sodium Lvl (test code = Sodium Lvl) 135 135-145 [place] 808542-01-28 19:33:00 Test Item Value Reference Range Interpretation Comments Potassium Lvl (test code = Potassium 4.3 3.5-5.1 Lvl) [place] 808542-01-28 19:33:00 Test Item Value Reference Range Interpretation Comments Chloride Lvl (test code = Chloride Lvl) 100 95-109 [place] 808542-01-28 19:33:00 Test Item Value Reference Range Interpretation Comments CO2 (test code = CO2) 30 24-32 [place] 808542-01-28 19:33:00 Test Item Value Reference Range Interpretation Comments AGAP (test code = AGAP) 9.3 10.0-20.0 [place] 808542-01-28 19:33:00 Test Item Value Reference Range Interpretation Comments Calcium Lvl (test code = Calcium Lvl) 8.4 8.5-10.5 [address]01-28 19:33:00 Test Item Value Reference Range Interpretation Comments B/C Ratio (test code = B/C Ratio) 22 1 6-[address]01-28 19:33:00 Test Item Value Reference Range Interpretation Comments Total Protein (test code = Total 5.7 6.4-8.4 Protein) [place] 808542-01-28 19:33:00 Test Item Value Reference Range Interpretation Comments Albumin Lvl (test code = Albumin Lvl) 2.2 3.5-5.0 [place] [address]-01-28 19:33:00 Test Item Value Reference Range Interpretation Comments Globulin (test code = Globulin) 3.5 2.7-4.2 [place] 808542-01-28 19:33:00 Test Item Value Reference Range Interpretation Comments A/G Ratio (test code = A/G Ratio) 0.6 1 0.7-1.6 [address]01-28 19:33:00 Test Item Value Reference Range Interpretation Comments ALT (test code = ALT) 46 See_Comment [Auto mated message] The system which ge nerated this result transmit porsche reference range : <=65. The reference range was not used to interpr et this result as alexia l/abnormal. [address]01-28 19:33:00 Test Item Value Reference Range Interpretation Comments AST (test code = AST) 32 See_Comment [Auto mated message] The system which ge nerated this result transmit porsche reference range : <=37. The reference range was not used to interpr et this result as alexia l/abnormal. [place] 808542-01-28 19:33:00 Test Item Value Reference Range Interpretation Comments Alk Phos (test code = Alk Phos) 287 39-136 [place] 808542-01-28 19:33:00 Test Item Value Reference Range Interpretation Comments Bili Total (test code = Bili Total) 0.5 0.2-1.3 [place] 808542-01-28 19:33:00 Test Item Value Reference Range Interpretation Comments eGFR (test code = eGFR) 48 [place] 808542-01-28 19:33:00 Test Item Value Reference Range Interpretation Comments Glucose Lvl (test code = Glucose Lvl) 549 70-99 [place] 808542-01-28 19:33:00 Test Item Value Reference Range Interpretation Comments BUN (test code = BUN) 25 7-22 [place] 808542-01-28 19:33:00 Test Item Value Reference Range Interpretation Comments Creatinine Lvl (test code = Creatinine 1.07 0.50-1.40 Lvl) [place] 808542-01-28 19:33:00 Test Item Value Reference Range Interpretation Comments Sodium Lvl (test code = Sodium Lvl) 134 135-145 [place] 808542-01-28 19:33:00 Test Item Value Reference Range Interpretation Comments Potassium Lvl (test code = Potassium 4.3 3.5-5.1 Lvl) [place] 808542-01-28 19:33:00 Test Item Value Reference Range Interpretation Comments Chloride Lvl (test code = Chloride Lvl) 99 95-109 [place] 808542-01-28 19:33:00 Test Item Value Reference Range Interpretation Comments CO2 (test code = CO2) 30 24-32 [place] 808542-01-28 19:33:00 Test Item Value Reference Range Interpretation Comments AGAP (test code = AGAP) 9.3 10.0-20.0 [place] 808542-01-28 19:33:00 Test Item Value Reference Range Interpretation Comments Calcium Lvl (test code = Calcium Lvl) 8.4 8.5-10.5 [place] 808542-01-28 19:33:00 Test Item Value Reference Range Interpretation Comments eGFR (test code = eGFR) 51 [place] [address]-01-28 19:33:00 Test Item Value Reference Range Interpretation Comments Magnesium Lvl (test code = Magnesium 2.2 1.8-2.4 Lvl) [address]01-28 19:33:00 Test Item Value Reference Range Interpretation Comments Neutrophils # (test code = Neutrophils 10.7 1.5-8.1 #) [place] [address]-01-28 19:33:00 Test Item Value Reference Range Interpretation Comments Lymphocytes # (test code = Lymphocytes 0.3 1.0-5.5 #) [address]01-28 19:33:00 Test Item Value Reference Range Interpretation Comments Monocytes # (test code 0.2 See_Comment [Aut omated message] The = Monocytes #) system which generated this result tra nsmitted reference range : <=0.8. The reference r evelyn was not used to int erpret this result as normal/abnormal . [place] [address]-01-28 19:33:00 Test Item Value Reference Range Interpretation Comments Segs (test code = Segs) 93.0 45.0-75.0 [place] [address]-01-28 19:33:00 Test Item Value Reference Range Interpretation Comments Bands (test code = 0.0 See_Comment [Automat ed message] The Bands) system which ge nerated this result transmit porsche reference range : <=11.0. The reference r evelyn was not used to interpr et this result as alexia l/abnormal. [place] 085392-01-28 19:33:00 Test Item Value Reference Range Interpretation Comments Lymphocytes (test code = Lymphocytes) 3.0 20.0-40.0 [place] [address]-01-28 19:33:00 Test Item Value Reference Range Interpretation Comments Monocytes (test code = Monocytes) 2.0 2.0-12.0 [place] [address]-01-28 19:33:00 Test Item Value Reference Range Interpretation Comments Metamyelocytes (test code 1.0 See_Comment [ Automated message] = Metamyelocytes) The system which generated this result transmitted ref erence range: <=1.0. T he reference range was not used to int erpret this result as normal/abnormal . [facility]wrakxhHKGSZGRKDG8380-64-62 19:33:00 Test Item Value Reference Range Interpretation Comments Myelocytes (test code = Myelocytes) 1.0 [facility]oaSGECKPCDOI5148[facility]-09 19:33:00 Test Item Value Reference Range Interpretation Comments Atypical Lymphs (test code = Atypical 0.0 Lymphs) [facility]OdaupeyFFIJRMQRDF2942-36-58 19:33:00 Test Item Value Reference Range Interpretation Comments RBC Morph (test code = Normal (06/28/21 1:33 RBC Morph) PM) [facility]TztrilyVIPIFXZSXT0997-83-30 19:33:00 Test Item Value Reference Range Interpretation Comments Plt Morph (test code = Normal (06/28/21 1:33 Plt Morph) PM) [facility]CrqtllmWOZIVNWAII9087-24-28 19:33:00 Test Item Value Reference Range Interpretation Comments Tot Cell Ct (test code = Tot Cell Ct) 100 1 [id number] 19:33:00 Test Item Value Reference Range Interpretation Comments WBC (test code = WBC) 11.5 3.7-10.4 [facility]GzcnjaoQIAYHMWMFM0789-61-02 19:33:00 Test Item Value Reference Range Interpretation Comments RBC (test code = RBC) 4.23 4.20-5.40 [facility]VtqovbrESFNNNDYUA9760-69-02 19:33:00 Test Item Value Reference Range Interpretation Comments Hgb (test code = Hgb) 13.7 12.0-16.0 [facility]YdbdtjoYCZPKPUYGA1395-01-75 19:33:00 Test Item Value Reference Range Interpretation Comments Hct (test code = Hct) 41.7 36.0-48.0 [facility]NcxltbxDWETMAQJML5755-36-70 19:33:00 Test Item Value Reference Range Interpretation Comments MCV (test code = MCV) 98.6 80.0-98.0 [facility]manQrojzkzJDARGPZUEH0097-35-91 19:33:00 Test Item Value Reference Range Interpretation Comments MCH (test code = MCH) 32.5 pg 27.0-31.0 [facility]manAvhekliTQQSQBCVXA2085-71-88 19:33:00 Test Item Value Reference Range Interpretation Comments MCHC (test code = MCHC) 33.0 32.0-36.0 [facility]VebkqwoPILJRVUYDD2960-52-43 19:33:00 Test Item Value Reference Range Interpretation Comments RDW (test code = RDW) 17.0 11.5-14.5 [facility]58 19:33:00 Test Item Value Reference Range Interpretation Comments Platelet (test code = Platelet) 117 133-450 [facility]PncdxujFJJRUUYVFU3370-46-10 19:33:00 Test Item Value Reference Range Interpretation Comments MPV (test code = MPV) 9.6 7.4-10.4 [facility]XvenltnRLWCRXROUJ1058-06-84 12:00:00 Test Item Value Reference Range Interpretation Comments Coronavirus (COVID-19) Not Detected (06/27/21 BRANDON (test code = 6:00 AM) Coronavirus (COVID-19) BRANDON) [facility]-Glucose [id number] 13:24:00 Test Item Value Reference Range Interpretation Comments POC-Glucose Meter (test 169 mg/dL 70-110 H : TE STED AT [facility] code = 1538) [address] [place] [address]: Wood Grainer/Techni ras ID = [id number] for Brenda, Tatyana Lab Interpretation (test Abnormal code = 51523-1) [facility]-Glucose mdhzh6727-65-81 13:24:00 Test Item Value Reference Range Interpretation Comments POC-Glucose Meter (test 169 mg/dL 70-110 H : TE STED AT [facility] code = 1538) [address] [place] [address]: Wood Grainer/Techni ras ID = [id number] for Brenda, Tatyana Lab Interpretation (test Abnormal code = 13470-5) [facility]-GLUCOSE [id number] 13:24:00 Test Item Value Reference Range Interpretation Comments POC-GLUCOSE METER 169 mg/dL 70-110 H : TESTED A T [facility] 1317 (BEAKER) (test code [facility], = 1538) [facility] 77 8: Wood Grainer/Techni ras ID = [id number] for Karen r, Tatyana CBC with platelet count + automated [id number] 06:31:00 Test Item Value Reference Range Interpretation Comments WBC (test code = 6690-2) 15.1 See_Comment H [A utomated message] The system [employer] generated this result transmitted ref erence range: 4.0 - 10 .0 K/L. The refe rence range was not u sed to interpret this result as normal/abnor mal. RBC (test code = 789-8) 4.17 See_Comment [Au tomated message] The system [employer] generated this result transmitted ref erence range: 4.00 - 5 .00 M/L. The refe rence range was not u sed to interpret this result as normal/abnor mal. MCHC (test code = 786-4) 30.6 See_Comment L [A utomated message] The system [employer] generated this result transmitted ref erence range: 32.0 - 3 6.0 GM/DL. The refe rence range was not u sed to interpret this result as normal/abnor mal. Hematocrit (test code = 34.3 % 36.0-46.0 L 4544-3) MCV (test code = 787-2) 82.3 fL 82.0-99.0 MCH (test code = 785-6) 25.2 pg 27.0-33.0 L RDW (test code = 788-0) 26.1 % 12.0-15.0 H Platelets (test code = 130 See_Comment L [Aut omated message] 777-3) The system [employer] generated this result transmitted ref erence range: 150 - 43 0 K/CU MM. The referen ce range was not u sed to interpret this result as normal/abnor mal. MPV (test code = 10.5 fL 6.0-11.5 89592-0) nRBC (test code = 413) 0 See_Comment [Aut omated message] The system [employer] generated this result transmitted ref erence range: 0 - 0 /1 00 WBC. The refere nce range was not u sed to interpret this result as normal/abnor mal. % Neutros (test code = 83 % 429) % Lymphs (test code = 11 % 430) % Monos (test code = 3 % 431) % Eos (test code = 432) 1 % % Baso (test code = 437) 0 % # Neutros (test code = 12.51 See_Comment H [Aut omated message] 670) The system [employer] generated this result transmitted ref erence range: 1.80 - 8 .00 K/L. The refe rence range was not u sed to interpret this result as normal/abnor mal. # Lymphs (test code = 1.71 See_Comment [Auto mated message] 414) The system [employer] generated this result transmitted ref erence range: 1.48 - 4 .50 K/L. The refe rence range was not u sed to interpret this result as normal/abnor mal. # Monos (test code = 0.51 See_Comment [Autom ated message] 415) The system [employer] generated this result transmitted ref erence range: 0.00 - 1 .30 K/L. The refe rence range was not u sed to interpret this result as normal/abnor mal. # Eos (test code = 416) 0.14 See_Comment [Au tomated message] The system [employer] generated this result transmitted ref erence range: 0.00 - 0 .50 K/L. The refe rence range was not u sed to interpret this result as normal/abnor mal. # Baso (test code = 417) 0.06 See_Comment [A utomated message] The system [employer] generated this result transmitted ref erence range: 0.00 - 0 .20 K/L. The refe rence range was not u sed to interpret this result as normal/abnor mal. Immature 1 % 0-0 H Granulocytes-Relative (test code = 2801) Lab Interpretation (test Abnormal code = 27646-8) [facility] with platelet count + automated [id number] 06:31:00 Test Item Value Reference Range Interpretation Comments WBC (test code = 6690-2) 15.1 See_Comment H [A utomated message] The system [employer] generated this result transmitted ref erence range: 4.0 - 10 .0 K/L. The refe rence range was not u sed to interpret this result as normal/abnor mal. RBC (test code = 789-8) 4.17 See_Comment [Au tomated message] The system [employer] generated this result transmitted ref erence range: 4.00 - 5 .00 M/L. The refe rence range was not u sed to interpret this result as normal/abnor mal. MCHC (test code = 786-4) 30.6 See_Comment L [A utomated message] The system [employer] generated this result transmitted ref erence range: 32.0 - 3 6.0 GM/DL. The refe rence range was not u sed to interpret this result as normal/abnor mal. Hematocrit (test code = 34.3 % 36.0-46.0 L 4544-3) MCV (test code = 787-2) 82.3 fL 82.0-99.0 MCH (test code = 785-6) 25.2 pg 27.0-33.0 L RDW (test code = 788-0) 26.1 % 12.0-15.0 H Platelets (test code = 130 See_Comment L [Aut omated message] 777-3) The system [employer] generated this result transmitted ref erence range: 150 - 43 0 K/CU MM. The referen ce range was not u sed to interpret this result as normal/abnor mal. MPV (test code = 10.5 fL 6.0-11.5 22804-8) nRBC (test code = 413) 0 See_Comment [Aut omated message] The system [employer] generated this result transmitted ref erence range: 0 - 0 /1 00 WBC. The refere nce range was not u sed to interpret this result as normal/abnor mal. % Neutros (test code = 83 % 429) % Lymphs (test code = 11 % 430) % Monos (test code = 3 % 431) % Eos (test code = 432) 1 % % Baso (test code = 437) 0 % # Neutros (test code = 12.51 See_Comment H [Aut omated message] 670) The system [employer] generated this result transmitted ref erence range: 1.80 - 8 .00 K/L. The refe rence range was not u sed to interpret this result as normal/abnor mal. # Lymphs (test code = 1.71 See_Comment [Auto mated message] 414) The system [employer] generated this result transmitted ref erence range: 1.48 - 4 .50 K/L. The refe rence range was not u sed to interpret this result as normal/abnor mal. # Monos (test code = 0.51 See_Comment [Autom ated message] 415) The system [employer] generated this result transmitted ref erence range: 0.00 - 1 .30 K/L. The refe rence range was not u sed to interpret this result as normal/abnor mal. # Eos (test code = 416) 0.14 See_Comment [Au tomated message] The system [employer] generated this result transmitted ref erence range: 0.00 - 0 .50 K/L. The refe rence range was not u sed to interpret this result as normal/abnor mal. # Baso (test code = 417) 0.06 See_Comment [A utomated message] The system [employer] generated this result transmitted ref erence range: 0.00 - 0 .20 K/L. The refe rence range was not u sed to interpret this result as normal/abnor mal. Immature 1 % 0-0 H Granulocytes-Relative (test code = 2801) Lab Interpretation (test Abnormal code = 43222-7) [facility] W/PLT COUNT & AUTO [id number] 06:31:00 Test Item Value Reference Range Interpretation Comments WHITE BLOOD CELL COUNT (BEAKER) 15.1 K/ L 4.0-10.0 H (test code = 775) RED BLOOD CELL COUNT (BEAKER) 4.17 M/ L 4.00-5.00 (test code = 761) HEMOGLOBIN (BEAKER) (test code = 10.5 GM/DL 12.0-15.5 L 410) HEMATOCRIT (BEAKER) (test code = 34.3 % 36.0-46.0 L 411) MEAN CORPUSCULAR VOLUME (BEAKER) 82.3 fL 82.0-99.0 (test code = 753) MEAN CORPUSCULAR HEMOGLOBIN 25.2 pg 27.0-33.0 L (BEAKER) (test code = 751) MEAN CORPUSCULAR HEMOGLOBIN CONC 30.6 GM/DL 32.0-36.0 L (BEAKER) (test code = 752) RED CELL DISTRIBUTION WIDTH 26.1 % 12.0-15.0 H (BEAKER) (test code = 412) PLATELET COUNT (BEAKER) (test 130 K/CU MM 150-430 L code = 756) MEAN PLATELET VOLUME (BEAKER) 10.5 fL 6.0-11.5 (test code = 754) NUCLEATED RED BLOOD CELLS 0 /100 WBC 0-0 (BEAKER) (test code = 413) NEUTROPHILS RELATIVE PERCENT 83 % (BEAKER) (test code = 429) LYMPHOCYTES RELATIVE PERCENT 11 % (BEAKER) (test code = 430) MONOCYTES RELATIVE PERCENT 3 % (BEAKER) (test code = 431) EOSINOPHILS RELATIVE PERCENT 1 % (BEAKER) (test code = 432) BASOPHILS RELATIVE PERCENT 0 % (BEAKER) (test code = 437) NEUTROPHILS ABSOLUTE COUNT 12.51 K/ L 1.80-8.00 H (BEAKER) (test code = 670) LYMPHOCYTES ABSOLUTE COUNT 1.71 K/ L 1.48-4.50 (BEAKER) (test code = 414) MONOCYTES ABSOLUTE COUNT (BEAKER) 0.51 K/ L 0.00-1.30 (test code = 415) EOSINOPHILS ABSOLUTE COUNT 0.14 K/ L 0.00-0.50 (BEAKER) (test code = 416) BASOPHILS ABSOLUTE COUNT (BEAKER) 0.06 K/ L 0.00-0.20 (test code = 417) IMMATURE GRANULOCYTES-RELATIVE 1 % 0-0 H PERCENT (BEAKER) (test code = 2801) POCT-GLUCOSE [id number] 06:27:00 Test Item Value Reference Range Interpretation Comments POC-GLUCOSE METER 102 mg/dL 70-110 : TESTED A T [facility] (BEAKER) (test code [facility] [address], = 1538) [facility] [address]: Wood Grainer/Techni ras ID = [id number] for Yaquelin Damico Hepatic function [id number] 06:04:00 Test Item Value Reference Range Interpretation Comments Protein, Total (test 4.9 See_Comment L [Autom ated code = 2885-2) message] The system which generated this result transmit porsche reference range : 6.0 - 8.5 gm/dL . The reference range was not u sed to interpret th is result as normal/abnormal . Albumin (test code = 2.6 g/dL 3.5-5.0 L 32777-8) Total Bilirubin (test 0.5 mg/dL 0.1-1.2 code = 1974-07) Bilirubin, Direct 0.2 mg/dL 0.0-0.4 (test code = 1967-11) Alkaline Phosphatase 78 U/L 30-115 (test code = 6768-6) AST (test code = 14 U/L 1919-) ALT (test code = 22 U/L 1741-10) ZIA (test code = ZIA) Wood Grainer ID - [id number] r ID - [id number] r ID - [id number] r ID - [id number] r ID - [id number] r ID - [id number] r ID - [id number] r ID - [id number] r ID - [id number] r ID - [id number] Lab Interpretation Abnormal (test code = 14590-9) [facility] [id number] 06:04:00 Test Item Value Reference Range Interpretation Comments Protein, Total (test 4.9 See_Comment L [Autom ated code = 2885-2) message] The system which generated this result transmit porsche reference range : 6.0 - 8.5 gm/dL . The reference range was not u sed to interpret th is result as normal/abnormal . Albumin (test code = 2.6 g/dL 3.5-5.0 L 49704-0) Total Bilirubin (test 0.5 mg/dL 0.1-1.2 code = 1974-07) Bilirubin, Direct 0.2 mg/dL 0.0-0.4 (test code = 1967-11) Alkaline Phosphatase 78 U/L 30-115 (test code = 6768-6) AST (test code = 14 U/L 1919-12) ALT (test code = 22 U/L 1741-10) ZIA (test code = ZIA) Wood Grainer ID - [id number] r ID - [id number] r ID - [id number] r ID - [id number] r ID - [id number] r ID - [id number] r ID - [id number] r ID - [id number] r ID - [id number] r ID - [id number] Lab Interpretation Abnormal (test code = 00354-9) [facility] [id number] 06:04:00 Test Item Value Reference Range Interpretation Comments TOTAL PROTEIN (BEAKER) (test code = 4.9 gm/dL 6.0-8.5 L 770) ALBUMIN (BEAKER) (test code = 1145) 2.6 g/dL 3.5-5.0 L BILIRUBIN TOTAL (BEAKER) (test code 0.5 mg/dL 0.1-1.2 = 377) BILIRUBIN DIRECT (BEAKER) (test 0.2 mg/dL 0.0-0.4 code = 706) ALKALINE PHOSPHATASE (BEAKER) (test 78 U/L 30-115 code = 346) AST (SGOT) (BEAKER) (test code = 14 U/L 5-40 353) ALT (SGPT) (BEAKER) (test code = 22 U/L 5-50 347) Wood Grainer ID - [id number] ID - [id number] ID - [id number] ID - [id number] ID - [id number] ID - [id number] ID - [id number] ID - [id number] ID - [id number] ID - [id number] metabolic [id number] 05:58:00 Test Item Value Reference Range Interpretation Comments Sodium (test code = 139 meq/L 234-730 9121-2) Potassium (test code = 3.7 meq/L 3.6-5.5 2823-3) Chloride (test code = 107 meq/L 98-106 H 2075-0) CO2 (test code = 25 meq/L 20-29 2028-9) BUN (test code = 15 mg/dL 10-26 3094-0) Creatinine (test code 0.73 mg/dL 0.50-1.20 = 2160-0) Glucose (test code = 91 mg/dL 70-110 2345-7) Calcium (test code = 8.1 mg/dL 8.5-10.5 L 01406-2) EGFR (test code = 78 mL/min/1.73 [place] [address]-6) NOT ACCURATE CREATININE CLEARANCE IN PREDICTING GLOMERULAR FILTRATION RATE . ESTIMATED GFR I S NOT APPLICABLE FOR DIALYSIS PATIENTS. ZIA (test code = ZIA) Wood Grainer ID - [id number] r ID - [id number] r ID - [id number] r ID - [id number] r ID - [id number] r ID - [id number] r ID - [id number] r ID - [id number] r ID - [id number] Lab Interpretation Abnormal (test code = 49879-0) [facility] metabolic [id number] 05:58:00 Test Item Value Reference Range Interpretation Comments Sodium (test code = 139 meq/L 532-143 9161-2) Potassium (test code = 3.7 meq/L 3.6-5.5 2823-3) Chloride (test code = 107 meq/L 98-106 H 2075-0) CO2 (test code = 25 meq/L -29 8-9) BUN (test code = 15 mg/dL 10- 3094-0) Creatinine (test code 0.73 mg/dL 0.50-1.20 = 2160-0) Glucose (test code = 91 mg/dL 70-110 2345-7) Calcium (test code = 8.1 mg/dL 8.5-10.5 L 37997-5) EGFR (test code = 78 mL/min/1.73 [place] [address]-7) NOT ACCURATE CREATININE CLEARANCE IN PREDICTING GLOMERULAR FILTRATION RATE . ESTIMATED GFR I S NOT APPLICABLE FOR DIALYSIS PATIENTS. ZIA (test code = ZIA) Wood Grainer ID - [id number] r ID - [id number] r ID - [id number] r ID - [id number] r ID - [id number] r ID - [id number] r ID - [id number] r ID - [id number] r ID - [id number] Lab Interpretation Abnormal (test code = 07642-2) [facility] METABOLIC [id number] 05:58:00 Test Item Value Reference Range Interpretation Comments SODIUM (BEAKER) 139 meq/L 135-148 (test code = 381) POTASSIUM (BEAKER) 3.7 meq/L 3.6-5.5 (test code = 379) CHLORIDE (BEAKER) 107 meq/L 98-106 H (test code = 382) CO2 (BEAKER) (test 25 meq/L 20-29 code = 355) BLOOD UREA NITROGEN 15 mg/dL 10-26 (BEAKER) (test code = 354) CREATININE (BEAKER) 0.73 mg/dL 0.50-1.20 (test code = 358) GLUCOSE RANDOM 91 mg/dL 70-110 (BEAKER) (test code = 652) CALCIUM (BEAKER) 8.1 mg/dL 8.5-10.5 L (test code = 697) EGFR (BEAKER) (test 78 mL/min/1.73 ESTIMA PORSCHE GFR IS code = 1092) sq m NOT ACCURATE CREATININE CLEARANCE IN PREDICTING GLOMERULAR FILTRATION RATE . ESTIMATED GFR I S NOT APPLICABLE FOR DIALYSIS PATIEN TS. Wood Grainer ID - [id number] ID - [id number] ID - [id number] ID - [id number] ID - [id number] ID - [id number] ID - [id number] ID - [id number] ID - [id number] time/INR 2020-08-20 05:44:00 Test Item Value Reference Interpretation Comments Range Protime (test code = 11.2 See_Comment Final 5902-2) Information (Auto Output) [Automated message] The system which generated this result transmitted reference range : 9.3 - 12.0 seconds. The reference range was not used to interpret this result as normal/abnormal . INR (test code = 1.01 See_Comment Final 6301-6) Information (Auto Output) [Automated message] The system which generated this result transmitted reference range : <=5.90. The reference range was not used to interpret this result as normal/abnormal . ZIA (test code = RECOMMENDED ZIA) COUMADIN/WARFARIN INR THERAPY RANGESSTANDARD DOSE: 2.0 - 3.0 Includes: PROPHYLAXIS for venous thrombosis, systemic embolization; TREATMENT for venous thrombosis and/or pulmonary embolus.HIGH RISK: Target INR is 2.5-3.5 for patients with mechanical heart valves. Lab Interpretation Normal (test code = 46794-5) [facility] Center[facility]thrombin time/[id number] 05:44:00 Test Item Value Reference Interpretation Comments Range Protime (test code = 11.2 See_Comment Final 5902-2) Information (Auto Output) [Automated message] The system which generated this result transmitted reference range : 9.3 - 12.0 seconds. The reference range was not used to interpret this result as normal/abnormal . INR (test code = 1.01 See_Comment Final 6301-6) Information (Auto Output) [Automated message] The system which generated this result transmitted reference range : <=5.90. The reference range was not used to interpret this result as normal/abnormal . ZIA (test code = RECOMMENDED ZIA) COUMADIN/WARFARIN INR THERAPY RANGESSTANDARD DOSE: 2.0 - 3.0 Includes: PROPHYLAXIS for venous thrombosis, systemic embolization; TREATMENT for venous thrombosis and/or pulmonary embolus.HIGH RISK: Target INR is 2.5-3.5 for patients with mechanical heart valves. Lab Interpretation Normal (test code = 54767-7) [facility] CenterPROTHROMBIN TIME/[id number] 05:44:00 Test Item Value Reference Range Interpretation Comments PROTIME (BEAKER) 11.2 seconds 9.3-12.0 Final Infor mation (test code = 759) (Auto Outp ut) INR (BEAKER) (test 1.01 See_Comment Final Inf ormation code = 370) (Auto Output) [Automated mess age] The system [facility] h generated this result transmitted ref erence range: <=5.90. The reference range was not used to int erpret this result as normal/abnormal . RECOMMENDED COUMADIN/WARFARIN INR THERAPY RANGESSTANDARD DOSE: 2.0 - 3.0 Includes: PROPHYLAXIS forvenous thrombosis, systemic embolization; TREATMENT for venous thrombosis and/or pulmonary embolus.HIGH RISK: Target INR is 2.5-3.5 for patients with mechanical heart valves.POCT-GLUCOSE [id number] 21:14:00 Test Item Value Reference Range Interpretation Comments POC-GLUCOSE METER 163 mg/dL 70-110 H : [facility]) (test [facility], = [address]) [place] [address]: Wood Grainer/Techni ras ID = [id number] for Yaquelin Damico POCT-GLUCOSE [id number] 17:54:00 Test Item Value Reference Range Interpretation Comments POC-GLUCOSE METER 122 mg/dL 70-110 H : TESTED A T [facility] [address] (BEAKER) (test code [address], = 1538) [place] [address]: Wood Grainer/Techni ras ID = [id number] for Karen rMerissae POCT-GLUCOSE [id number] 11:50:00 Test Item Value Reference Range Interpretation Comments POC-GLUCOSE METER 121 mg/dL 70-110 H : TESTED A T [facility] [address] (BEAKER) (test code [address], = 1538) [place] [address]: Wood Grainer/Techni ras ID = [id number] for Karen rMerissae Manual [id number] 07:26:00 Test Item Value Reference Range Interpretation Comments % Neutros (manual) 81 % (test code = 1359) % Lymphs (manual) (test 12 % code = 1360) % Monos (manual) (test 3 % code = 1361) % Baso (manual) (test 1 % code = 1363) % Bands (manual) (test 3 % 0-10 code = 1348) # Neutros (manual) 16.04 See_Comment H [Automat ed (test code = 1365) message] The system which generated this result transmitted reference range : 1.80 - 8.00 K/ L. The reference r evelyn was not used to interpret this result as normal/abnormal . # Lymphs (manual) (test 2.38 See_Comment [Au tomated code = 1366) message] The sy stem which generated this result transmitted reference range : 1.48 - 4.50 K/ L. The reference r evelyn was not used to interpret this result as normal/abnormal . # Monos (manual) (test 0.59 See_Comment [Aut omated code = 1367) message] The sy stem which generated this result transmitted reference range : 0.00 - 1.30 K/ L. The reference r evelyn was not used to interpret this result as normal/abnormal . # Baso (manual) (test 0.20 See_Comment [Auto mated code = 1369) message] The sy stem which generated this result transmitted reference range : 0.00 - 0.20 K/ L. The reference r evelyn was not used to interpret this result as normal/abnormal . # Bands (manual) (test 0.6 See_Comment [Aut omated code = 1349) message] The sy stem which generated this result transmitted reference range : 0.0 - 0.8 K/L . The reference r evelyn was not used to interpret this result as normal/abnormal . Total Counted (test 100 code = 1351) Bands plus Segmented 16.63 Neutrophils (test code = 1352) WBC Morphology (test Normal code = 487) Platelet Morphology Normal (test code = 486) Anisocytosis (test code 2+ moderate = 961) Elliptocytes (test code 1+ few = 962) Macro Ovalocytes (test 1+ few code = 476) Target Cells (test code 1+ few = 480) Lab Interpretation Abnormal (test code = 81456-0) [facility] Center[facility]ual Khnkgofdrlyp2003-67-52 07:26:00 Test Item Value Reference Range Interpretation Comments % Neutros (manual) 81 % (test code = 1359) % Lymphs (manual) (test 12 % code = 1360) % Monos (manual) (test 3 % code = 1361) % Baso (manual) (test 1 % code = 1363) % Bands (manual) (test 3 % 0-10 code = 1348) # Neutros (manual) 16.04 See_Comment H [Automat ed (test code = 1365) message] The system which generated this result transmitted reference range : 1.80 - 8.00 K/ L. The reference r evelyn was not used to interpret this result as normal/abnormal . # Lymphs (manual) (test 2.38 See_Comment [Au tomated code = 1366) message] The sy stem which generated this result transmitted reference range : 1.48 - 4.50 K/ L. The reference r evelyn was not used to interpret this result as normal/abnormal . # Monos (manual) (test 0.59 See_Comment [Aut omated code = 1367) message] The sy stem which generated this result transmitted reference range : 0.00 - 1.30 K/ L. The reference r evelyn was not used to interpret this result as normal/abnormal . # Baso (manual) (test 0.20 See_Comment [Auto mated code = 1369) message] The sy stem which generated this result transmitted reference range : 0.00 - 0.20 K/ L. The reference r evelyn was not used to interpret this result as normal/abnormal . # Bands (manual) (test 0.6 See_Comment [Aut omated code = 1349) message] The sy stem which generated this result transmitted reference range : 0.0 - 0.8 K/L . The reference r evelyn was not used to interpret this result as normal/abnormal . Total Counted (test 100 code = 1351) Bands plus Segmented 16.63 Neutrophils (test code = 1352) WBC Morphology (test Normal code = 487) Platelet Morphology Normal (test code = 486) Anisocytosis (test code 2+ moderate = 961) Elliptocytes (test code 1+ few = 962) Macro Ovalocytes (test 1+ few code = 476) Target Cells (test code 1+ few = 480) Lab Interpretation Abnormal (test code = 05024-5) [facility] W/PLT COUNT & AUTO [id number] 07:26:00 Test Item Value Reference Range Interpretation Comments WHITE BLOOD CELL COUNT 19.8 K/ L 4.0-10.0 H (BEAKER) (test code = 775) RED BLOOD CELL COUNT 4.13 M/ L 4.00-5.00 (BEAKER) (test code = 761) HEMOGLOBIN (BEAKER) 10.5 GM/DL 12.0-15.5 L (test code = 410) HEMATOCRIT (BEAKER) 34.5 % 36.0-46.0 L (test code = 411) MEAN CORPUSCULAR 83.5 fL 82.0-99.0 VOLUME (BEAKER) (test code = 753) MEAN CORPUSCULAR 25.4 pg 27.0-33.0 L HEMOGLOBIN (BEAKER) (test code = 751) MEAN CORPUSCULAR 30.4 GM/DL 32.0-36.0 L HEMOGLOBIN CONC (BEAKER) (test code = 752) RED CELL DISTRIBUTION 26.6 % 12.0-15.0 H WIDTH (BEAKER) (test code = 412) PLATELET COUNT 121 K/CU MM 150-430 L (BEAKER) (test code = 756) MEAN PLATELET VOLUME Unable to report due (BEAKER) (test code = to abn ormal Platelet 754) population distribution. NUCLEATED RED BLOOD 0 /100 WBC 0-0 CELLS (BEAKER) (test code = 413) NEUTROPHILS RELATIVE 87 % PERCENT (BEAKER) (test code = 429) LYMPHOCYTES RELATIVE 9 % PERCENT (BEAKER) (test code = 430) MONOCYTES RELATIVE 2 % PERCENT (BEAKER) (test code = 431) EOSINOPHILS RELATIVE 1 % PERCENT (BEAKER) (test code = 432) BASOPHILS RELATIVE 0 % PERCENT (BEAKER) (test code = 437) NEUTROPHILS ABSOLUTE 17.16 K/ L 1.80-8.00 H COUNT (BEAKER) (test code = 670) LYMPHOCYTES ABSOLUTE 1.82 K/ L 1.48-4.50 COUNT (BEAKER) (test code = 414) MONOCYTES ABSOLUTE 0.41 K/ L 0.00-1.30 COUNT (BEAKER) (test code = 415) EOSINOPHILS ABSOLUTE 0.10 K/ L 0.00-0.50 COUNT (BEAKER) (test code = 416) BASOPHILS ABSOLUTE 0.08 K/ L 0.00-0.20 COUNT (BEAKER) (test code = 417) IMMATURE 1 % 0-0 H GRANULOCYTES-RELATIVE PERCENT (BEAKER) (test code = 2801) (MANUAL DIFFERENTIAL)2020-08-19 07:26:00 Test Item Value Reference Range Interpretation Comments NEUTROPHILS - REL (DIFF) (BEAKER) 81 % (test code = 1359) LYMPHOCYTES - REL (DIFF) (BEAKER) 12 % (test code = 1360) MONOCYTES - REL (DIFF) (BEAKER) 3 % (test code = 1361) BASOPHILS - REL (DIFF) (BEAKER) 1 % (test code = 1363) BANDS - REL (DIFF) (BEAKER) (test 3 % 0-10 code = 1348) NEUTROPHILS - ABS (DIFF) (BEAKER) 16.04 K/ L 1.80-8.00 H (test code = 1365) LYMPHOCYTES - ABS (DIFF) (BEAKER) 2.38 K/ L 1.48-4.50 (test code = 1366) MONOCYTES - ABS (DIFF) (BEAKER) 0.59 K/ L 0.00-1.30 (test code = 1367) BASOPHILS - ABS (DIFF) (BEAKER) 0.20 K/ L 0.00-0.20 (test code = 1369) BANDS-ABS (DIFF) (BEAKER) (test 0.6 K/ L 0.0-0.8 code = 1349) TOTAL COUNTED (BEAKER) (test code 100 = 1351) BANDS + SEGMENTED NEUTROPHILS 16.63 (BEAKER) (test code = 1352) WBC MORPHOLOGY (BEAKER) (test Normal code = 487) PLT MORPHOLOGY (BEAKER) (test Normal code = 486) ANISOCYTOSIS (BEAKER) (test code 2+ moderate = 961) ELLIPTOCYTES (BEAKER) (test code 1+ few = 962) MACRO-OVALOCYTES (BEAKER) (test 1+ few code = 476) TARGET CELLS (BEAKER) (test code 1+ few = 480) HEPATIC FUNCTION [id number] 07:03:00 Test Item Value Reference Range Interpretation Comments TOTAL PROTEIN (BEAKER) 5.1 gm/dL 6.0-8.5 L Speci men moderately (test code = 770) hemolyzed ALBUMIN (BEAKER) (test 2.5 g/dL 3.5-5.0 L Speci men moderately code = 1145) hemolyzed BILIRUBIN TOTAL 0.5 mg/dL 0.1-1.2 Specimen mod erately (BEAKER) (test code = hemoly zed 377) BILIRUBIN DIRECT 0.1 mg/dL 0.0-0.4 Specimen mo derately (BEAKER) (test code = hemoly zed 706) ALKALINE PHOSPHATASE 71 U/L 30-115 (BEAKER) (test code = 346) AST (SGOT) (BEAKER) 28 U/L 5-40 Specimen moderately (test code = 353) hemolyzed ALT (SGPT) (BEAKER) 30 U/L 5-50 Specimen moderately (test code = 347) hemolyzed Wood Grainer ID - LITOOperator ID - LITOOperator ID - LITOOperator ID - LITOOperator ID - LITOOperator ID - LITOOperator ID - LITOOperator ID - LITOOperator ID - LITOOperator ID - LITOBASIC METABOLIC [id number] 07:01:00 Test Item Value Reference Range Interpretation Comments SODIUM (BEAKER) 141 meq/L 135-148 (test code = 381) POTASSIUM (BEAKER) 4.3 meq/L 3.6-5.5 Specimen moderately (test code = 379) hemolyzed CHLORIDE (BEAKER) 109 meq/L 98-106 H (test code = 382) CO2 (BEAKER) (test 23 meq/L 20-29 code = 355) BLOOD UREA NITROGEN 20 mg/dL 10-26 (BEAKER) (test code = 354) CREATININE (BEAKER) 0.73 mg/dL 0.50-1.20 Specimen moderately (test code = 358) hemolyzed GLUCOSE RANDOM 86 mg/dL 70-110 (BEAKER) (test code = 652) CALCIUM (BEAKER) 8.4 mg/dL 8.5-10.5 L (test code = 697) EGFR (BEAKER) (test 78 mL/min/1.73 ESTIMA PORSCHE GFR IS code = 1092) sq m NOT ACCURATE CREATININE CLEARANCE IN PREDICTING GLOMERULAR FILTRATION RATE . ESTIMATED GFR I S NOT APPLICABLE FOR DIALYSIS PATIEN TS. Wood Grainer ID - LITOOperator ID - LITOOperator ID - LITOOperator ID - LITOOperator ID - LITOOperator ID - LITOOperator ID - LITOOperator ID - LITOOperator ID - LITOPROTHROMBIN [id number] 06:49:00 Test Item Value Reference Range Interpretation Comments PROTIME (BEAKER) 11.7 seconds 9.3-12.0 Final Infor mation (test code = 759) (Auto Outp ut) INR (BEAKER) (test 1.06 See_Comment Final Inf ormation code = 370) (Auto Output) [Automated mess age] The system allGreenup generated this result transmitted ref erence range: <=5.90. The reference range was not used to int erpret this result as normal/abnormal . RECOMMENDED COUMADIN/WARFARIN INR THERAPY RANGESSTANDARD DOSE: 2.0 - 3.0 Includes: PROPHYLAXIS forvenous thrombosis, systemic embolization; TREATMENT for venous thrombosis and/or pulmonary embolus.HIGH RISK: Target INR is 2.5-3.5 for patients with mechanical heart valves.POCT-GLUCOSE [id number] 06:05:00 Test Item Value Reference Range Interpretation Comments POC-GLUCOSE METER 96 mg/dL 70-110 : TESTED A T [facility] 1317 (BEAKER) (test code = [address]) [place] [id number]: Wood Grainer/Techni ras ID = [id number] for Yaquelin Damico POCT-GLUCOSE [id number] 21:28:00 Test Item Value Reference Range Interpretation Comments POC-GLUCOSE METER 170 mg/dL 70-110 H : TESTED A T [facility] (BEAKER) (test code [address], = [address]) [place] [address]: Wood Grainer/Techni ras ID = [id number] for Lis Damicoza POCT-GLUCOSE [id number] 17:37:00 Test Item Value Reference Range Interpretation Comments POC-GLUCOSE METER 206 mg/dL 70-110 H : TESTED A T [facility] (BEAKER) (test code [address], = [address]) [place] [address]: Wood Grainer/Techni ras ID = [id number] for Udoh , Isabell U/S, ABDOMINAL, [id number] 16:30:00Abdomen limited area? Add comment if clarification is needed.->Gall BladderReason for exam:->pancreatitis [facility] 1945 Sex: FFINAL REPORT History: Pancreatitis. FINDINGS: Real-time sonographic examination of the right upper quadrant of the abdomen reveals a normal-size liver measuring up to 14.2 cm in length. Hepatic echotexture is mildly and diffusely increased, likely representing fatty infiltration. There are no sonographically detectable masses or other focal hepatic abnormalities ident ified. The gallbladder is not visible and may be surgically absent. The common bile duct is upper limits normal for the patient's stated age measuring up to 7 mm in diameter. No intrahepatic biliary ductal dilatation is identified. The portal vein measures 8 mm in diameter and appears patent by Limited color Doppler examination. The right kidney is normal size and echogenicity measuring up to 9.4 cm in length by 6 cm in greatest transverse diameter. There are no visible solid masses, cysts, stones or evidence for obstruction. The pancreas is unremarkable where visible but only incompletely imaged secondary to overlying bowel gas. Aorta and IVC are unremarkable where visible. No ascites or abdominal fluid collections. IMPRESSION: 1. Probable mild diffuse fatty infiltration of the liver. 2. Nonvisualization of the gallbladder, possibly representing surgical absence. No acute biliary abnormalities.3. Otherwise, unremarkable right upper quadrant abdominal sonogram. Signed: Alhaji Maiort Verified Date/Time: 08/18/2020 16:30:08 Reading Location: [address] Reading Room RAD, ABDOMEN/KUB 1 VIEW [id number] 16:20:00Reason for exam:->fecal [facility]action[facility] : 1945 Sex: FFINAL REPORT ONE VIEW ABDOMEN HISTORY: Fecal impaction COMPARISON:No comparison abdominal imaging FINDINGS: Single supine AP image of the abdomen was obtained. No dilated loops of large or small intestine are identified. No large volume of fecal material is visualized radiographically. There are surgical clips in the right upper quadrant of the abdomen. There are degenerative changes in the spine. IMPRESSION: Nonobstructive bowel gas pattern. Signed: Kriss Hassan MDReport Verified Date/Time: 08/18/2020 16:20:23 Reading Location: [facility] [id number] Ortho Consult ReadingRoom [id number] 13:30:00 Test Item Value Reference Range Interpretation Comments Lipase (test code = 77 U/L 6-51 H 3040-3) ZIA (test code = ZIA) Wood Grainer ID - [id number] Lab Interpretation (test Abnormal code = 70081-8) [facility] 13:30:00 Test Item Value Reference Range Interpretation Comments Lipase (test code = 77 U/L 6-51 H 3040-3) ZIA (test code = ZIA) Wood Grainer ID - [id number] Lab Interpretation (test Abnormal code = 46255-7) [facility] 13:30:00 Test Item Value Reference Range Interpretation Comments LIPASE (BEAKER) (test code = 749) 77 U/L 6-51 H Wood Grainer ID - [id number] 12:54:00 Test Item Value Reference Range Interpretation Comments POC-GLUCOSE METER 277 mg/dL 70-110 H : TESTED A T [facility] 1317 (BEAKER) (test code [address], = 1538) [facility] [address]: Wood Grainer/Techni ras ID = [id number] for Sheela Lares SARS-CoV2/RT-PCR (Asymptomatic ONLY)2020-08-18 12:15:00 Test Item Value Reference Range Interpretation Comments SARS-COV2/RT-PCR Negative Not Detected, Performanc e of the Xpert (test code = Negative, See Xpress 08228-6) external report SARS-CoV-2/F aviva/RSV test for linked test has only bee n established in nasopharyngeal swab specimens. Use of the Xpert Xpress SARS-CoV-2/Flu/ RSV test with other spec imen types has not b een assessed and pe rformance characteristics are unknown. As wi th any molecular test, mutations withi n the targeted geneti c regions identified by t he Xpert Xpress SARS-CoV-2/Flu/ RSV test could affect pr brett and/or probe bi nding resulting in fa ilure to detect the pres ence of virus or the vi arturo being detected less predictably.Neg ative results do not preclude SARS-CoV-2, Inf luenza A/B, or RSV inf ection and should not be used as the sole bas is for treatment or ot her patient managem ent decisions. Res ults from the Xpert Xpres s SARS-CoV-2/Flu/ RSV test should be corre lated with the clinic al history, epidem iological data, and other data available to th e clinician evalu ating the patient. Inval id test results may occ ur from improper specim en collection; berto lure to follow the hannah mmended sample collecti on, handling, and s torage procedures; samanta hnical error. False ne gative results may occ ur if virus is presen t at levels below th e analytical limi t of detection (LOD: 131 copies/mL). Vi ral nucleic acid ma y persist in vivo, indepe ndent of virus viability . Detection of an alyte target(s) does not imply that the corres ponding virus(es) are i nfectious or are the caus ative agents for clin ical symptoms. Rece nt patient exposur e to FluMist or ot her live attenuated infl uenza vaccines may ca use inaccurate posi tive results.This te st has been authorized by FDA under an EUA fo r use by authorized labo ratories. This test is o nly authorized for the duration of the declaration cherrie t circumstances e xist justifying the authorization o f emergency use o f in vitro diagnosti c tests for detection a nd/or diagnosis of CO VID-19 under Section 5 64(b)(1) of the Federal Food, Drug and Cosmet ic Act, 21 U.S.C. 360bbb-3(b)(1), unless the authorizati on is terminated or r evoked sooner. Fact Sh eet for Healthcare Prov iders: https://www.cep heid.com/ Documents/Xpert %20Xpress %11YQLF-IhI-7-F aviva-RSV/30 2-4508%20Rev.%2 0B%20HCP% 20Fact%20Sheet. pdf Fact Sheet for Healt hcare Patients: https://www.UpDownid.Serveron/ Documents/Xpert %20Xpress %17DRCW-LaG-0-F aviva-RSV/30 24507%20Rev.%2 0B%20Pati ent%20Fact%20Sh eet.pdf SARS-COV-2 [facility] Performed at:[facility] PERFORMING LAB [email or web address] (test code = [address] [address]-9) [place] [address] ph: [phone] [facility]2020-08-18 12:15:00 Test Item Value Reference Range Interpretation Comments SARS-COV2/RT-PCR Negative Not Detected, Performanc e of the Xpert (test code = Negative, See Xpress 10718-8) external report SARS-CoV-2/F aviva/RSV test for linked test has only bee n established in nasopharyngeal swab specimens. Use of the Xpert Xpress SARS-CoV-2/Flu/ RSV test with other spec imen types has not b een assessed and pe rformance characteristics are unknown. As wi th any molecular test, mutations withi n the targeted geneti c regions identified by t he Xpert Xpress SARS-CoV-2/Flu/ RSV test could affect pr brett and/or probe bi nding resulting in fa ilure to detect the pres ence of virus or the vi arturo being detected less predictably.Neg ative results do not preclude SARS-CoV-2, Inf luenza A/B, or RSV inf ection and should not be used as the sole bas is for treatment or ot her patient managem ent decisions. Res ults from the Xpert Xpres s SARS-CoV-2/Flu/ RSV test should be corre lated with the clinic al history, epidem iological data, and other data available to e clinician evalu ating the patient. Inval id test results may occ ur from improper specim en collection; berto lure to follow the hannah mmended sample collecti on, handling, and s torage procedures; samanta hnical error. False ne gative results may occ ur if virus is presen t at levels below th e analytical limi t of detection (LOD: 131 copies/mL). Vi ral nucleic acid ma y persist in vivo, indepe ndent of virus viability . Detection of an alyte target(s) does not imply that the corres ponding virus(es) are i nfectious or are the caus ative agents for clin ical symptoms. Rece nt patient exposur e to FluMist or ot her live attenuated infl uenza vaccines may ca use inaccurate posi tive results.This te st has been authorized by FDA under an EUA fo r use by authorized labo ratories. This test is o nly authorized for the duration of the declaration cherrie t circumstances e xist justifying the authorization o f emergency use o f in vitro diagnosti c tests for detection a nd/or diagnosis of CO VID-19 under Section 5 64(b)(1) of the Federal Food, Drug and Cosmet ic Act, 21 U.S.C. 360bbb-3(b)(1), unless the authorizati on is terminated or r evoked sooner. Fact Sh eet for Healthcare Prov iders: https://www.Cerora/ Documents/Xpert %20Xpress %58NIYO-WeM-0-F aviva-RSV/30 2-4508%20Rev.%2 0B%20HCP% 20Fact%20Sheet. pdf Fact Sheet for Healt hcare Patients: https://www.Modify.Serveron/ Documents/Xpert %20Xpress %06TNZU-ClE-2-F aviva-RSV/30 2-4507%20Rev.%2 0B%20Pati ent%20Fact%20Sh eet.pdf SARS-COV-2 SLSL Performed at:[facility] PERFORMING LAB Tiffin [id number] (test code = [address] [address]-5) [place] [address] ph: [phone] [facility])2020-08-18 12:15:00 Test Item Value Reference Range Interpretation Comments SARS-COV2/RT-PCR Negative Not Detected, Performanc e of the Xpert (test code = Negative, See Xpress [id number]) external report SARS-CoV-2/F aviva/RSV test for linked test has only bee n established in nasopharyngeal swab specimens. Use of the Xpert Xpress SARS-CoV-2/Flu/ RSV test with other spec imen types has not b een assessed and pe rformance characteristics are unknown. As wi th any molecular test, mutations withi n the targeted geneti c regions identified by t he Xpert Xpress SARS-CoV-2/Flu/ RSV test could affect pr brett and/or probe bi nding resulting in fa ilure to detect the pres ence of virus or the vi arturo being detected less predictably.Neg ative results do not preclude SARS-CoV-2, Inf luenza A/B, or RSV inf ection and should not be used as the sole bas is for treatment or ot her patient managem ent decisions. Res ults from the Xpert Xpres s SARS-CoV-2/Flu/ RSV test should be corre lated with the clinic al history, epidem iological data, and other data available to th e clinician evalu ating the patient. Inval id test results may occ ur from improper specim en collection; berto lure to follow the hannah mmended sample collecti on, handling, and s torage procedures; samanta hnical error. False ne gative results may occ ur if virus is presen t at levels below th e analytical limi t of detection (LOD: 131 copies/mL). Vi ral nucleic acid ma y persist in vivo, indepe ndent of virus viability . Detection of an alyte target(s) does not imply that the corres ponding virus(es) are i nfectious or are the caus ative agents for clin ical symptoms. Rece nt patient exposur e to FluMist or oth er live attenuated infl uenza vaccines may ca use inaccurate posi tive results.This te st has been authorized by FDA under an EUA fo r use by authorized labo ratories. This test is o nly authorized for the duration of the declaration cherrie t circumstances e xist justifying the authorization o f emergency use o f in vitro diagnosti c tests for detection a nd/or diagnosis of CO VID-19 under Section 5 64(b)(1) of the Federal Food, Drug and Cosmet ic Act, 21 U.S.C. 360bbb-3(b)(1), unless the authorizati on is terminated or r evoked sooner.Fact She et for Healthcare Prov iders: https://www.Cerora/ Documents/Xpert %20Xpress %27NQRT-KcB-1-F -RSV/30 2-4508%20Rev.%2 0B%20HCP% 20Fact%20Sheet. pdfFact Sheet for Healt hcare Patients: https://www.Cerora/ Documents/Xpert %20Xpress %91NIAA-ZhY-8-F -RSV/30 2-4507%20Rev.%2 0B%20Pati ent%20Fact%20Sh eet.pdf SARS-COV-2 SLSL Performed at:[facility] PERFORMING LAB [address] [id number] (test code = [address] 4021996) [place] [address] ph: [phone] Hemoglobin [id number] 11:45:00 Test Item Value Reference Range Interpretation Comments Hemoglobin A1C (test code 8.2 % 4.3-6.1 H = 4548-4) ZIA (test code = ZIA) Wood Grainer ID - [id number] Lab Interpretation (test Abnormal code = 88951-2) [facility] [id number] 11:45:00 Test Item Value Reference Range Interpretation Comments Hemoglobin A1C (test code 8.2 % 4.3-6.1 H = 4548-4) ZIA (test code = ZIA) Wood Grainer ID - [id number] Lab Interpretation (test Abnormal code = 61201-8) [facility]IN [id number] 11:45:00 Test Item Value Reference Range Interpretation Comments HEMOGLOBIN A1C (BEAKER) (test code = 8.2 % 4.3-6.1 H 368) Wood Grainer ID - [id number] W/PLT COUNT & AUTO [id number] 11:40:00 Test Item Value Reference Range Interpretation Comments WHITE BLOOD CELL COUNT (BEAKER) 28.7 K/ L 4.0-10.0 H (test code = 775) RED BLOOD CELL COUNT (BEAKER) 4.93 M/ L 4.00-5.00 (test code = 761) HEMOGLOBIN (BEAKER) (test code = 12.5 GM/DL 12.0-15.5 410) HEMATOCRIT (BEAKER) (test code = 40.7 % 36.0-46.0 411) MEAN CORPUSCULAR VOLUME (BEAKER) 82.6 fL 82.0-99.0 (test code = 753) MEAN CORPUSCULAR HEMOGLOBIN 25.4 pg 27.0-33.0 L (BEAKER) (test code = 751) MEAN CORPUSCULAR HEMOGLOBIN CONC 30.7 GM/DL 32.0-36.0 L (BEAKER) (test code = 752) RED CELL DISTRIBUTION WIDTH 26.0 % 12.0-15.0 H (BEAKER) (test code = 412) PLATELET COUNT (BEAKER) (test 172 K/CU MM 150-430 code = 756) MEAN PLATELET VOLUME (BEAKER) 10.1 fL 6.0-11.5 (test code = 754) NUCLEATED RED BLOOD CELLS 0 /100 WBC 0-0 (BEAKER) (test code = 413) NEUTROPHILS RELATIVE PERCENT 91 % (BEAKER) (test code = 429) LYMPHOCYTES RELATIVE PERCENT 4 % (BEAKER) (test code = 430) MONOCYTES RELATIVE PERCENT 3 % (BEAKER) (test code = 431) EOSINOPHILS RELATIVE PERCENT 0 % (BEAKER) (test code = 432) BASOPHILS RELATIVE PERCENT 0 % (BEAKER) (test code = 437) NEUTROPHILS ABSOLUTE COUNT 25.98 K/ L 1.80-8.00 H (BEAKER) (test code = 670) LYMPHOCYTES ABSOLUTE COUNT 1.19 K/ L 1.48-4.50 L (BEAKER) (test code = 414) MONOCYTES ABSOLUTE COUNT (BEAKER) 0.81 K/ L 0.00-1.30 (test code = 415) EOSINOPHILS ABSOLUTE COUNT 0.00 K/ L 0.00-0.50 (BEAKER) (test code = 416) BASOPHILS ABSOLUTE COUNT (BEAKER) 0.06 K/ L 0.00-0.20 (test code = 417) IMMATURE GRANULOCYTES-RELATIVE 2 % 0-0 H PERCENT (BEAKER) (test code = 2801) Lipid [id number] 11:29:00 Test Item Value Reference Range Interpretation Comments Triglycerides (test 120 mg/dL code = 2571-8) Cholesterol (test code 112 mg/dL = 2093-3) HDL (test code = 48 mg/dL 2085-01) LDL Calculated (test 40 mg/dL code = 01488-0) ZIA (test code = ZIA) Triglyceride Reference Range: Low Risk <150 Borderline 150-199 High Risk 200-499 Very High Risk >=500 Cholesterol Reference Range: Low Risk <200 Borderline 200-239 High Risk >240 HDL Cholesterol Reference Range: Low Risk >=60 High Risk <40 LDL Cholesterol Reference Range: Optimal <100 Near Optimal 100-129 Borderline 130-159 High 160-189 Very High >=190 Wood Grainer ID - [id number] ID - [id number] ID - [id number] ID - [id number] ID - [id number] ID - [id number] [facility] Center[facility] [id number] 11:29:00 Test Item Value Reference Range Interpretation Comments Triglycerides (test 120 mg/dL code = 2571-8) Cholesterol (test code 112 mg/dL = 2092-) HDL (test code = 48 mg/dL 2085-01) LDL Calculated (test 40 mg/dL code = 63196-8) ZIA (test code = ZIA) Triglyceride Reference Range: Low Risk <150 Borderline 150-199 High Risk 200-499 Very High Risk >=500 Cholesterol Reference Range: Low Risk <200 Borderline 200-239 High Risk >240 HDL Cholesterol Reference Range: Low Risk >=60 High Risk <40 LDL Cholesterol Reference Range: Optimal <100 Near Optimal 100-129 Borderline 130-159 High 160-189 Very High >=190 Wood Grainer ID - [id number] ID - [id number] ID - [id number] ID - [id number] ID - [id number] ID - [id number] [facility] Center[facility] [id number] 11:29:00 Test Item Value Reference Range Interpretation Comments TRIGLYCERIDES (BEAKER) (test code = 120 mg/dL 540) CHOLESTEROL (BEAKER) (test code = 112 mg/dL 631) HDL CHOLESTEROL (BEAKER) (test code 48 mg/dL = 976) LDL CHOLESTEROL CALCULATED (BEAKER) 40 mg/dL (test code = 633) Triglyceride Reference Range: Low Risk <150 Borderline 150-199 High Risk 200-499 Very High Risk >=500Cholesterol Reference Range: Low Risk <200 Borderline 200-239 High Risk >240HDL Cholesterol Reference Range: Low Risk >=60 High Risk <40LDL Cholesterol Reference Range: Optimal <100 Near Optimal 100-129 Borderline 130-159 High 160-189 Very High >=190 Wood Grainer ID - [id number] ID - [id number] ID - [id number] ID - [id number] ID - [id number] ID - [id number] HEPATIC FUNCTION [id number] 11:29:00 Test Item Value Reference Range Interpretation Comments TOTAL PROTEIN (BEAKER) (test code = 5.6 gm/dL 6.0-8.5 L 770) ALBUMIN (BEAKER) (test code = 1145) 3.0 g/dL 3.5-5.0 L BILIRUBIN TOTAL (BEAKER) (test code 0.9 mg/dL 0.1-1.2 = 377) BILIRUBIN DIRECT (BEAKER) (test 0.4 mg/dL 0.0-0.4 code = 706) ALKALINE PHOSPHATASE (BEAKER) (test 87 U/L 30-115 code = 346) AST (SGOT) (BEAKER) (test code = 27 U/L 5-40 353) ALT (SGPT) (BEAKER) (test code = 44 U/L 5-50 347) Wood Grainer ID - [id number] ID - [id number] ID - [id number] ID - [id number] ID - [id number] ID - [id number] ID - [id number] METABOLIC [id number] 11:28:00 Test Item Value Reference Range Interpretation Comments SODIUM (BEAKER) 137 meq/L 135-148 (test code = 381) POTASSIUM (BEAKER) 4.9 meq/L 3.6-5.5 (test code = 379) CHLORIDE (BEAKER) 104 meq/L 98-106 (test code = 382) CO2 (BEAKER) (test 22 meq/L 20-29 code = 355) BLOOD UREA NITROGEN 24 mg/dL 10-26 (BEAKER) (test code = 354) CREATININE (BEAKER) 0.87 mg/dL 0.50-1.20 (test code = 358) GLUCOSE RANDOM 333 mg/dL 70-110 H (BEAKER) (test code = 652) CALCIUM (BEAKER) 8.6 mg/dL 8.5-10.5 (test code = 697) EGFR (BEAKER) (test 64 mL/min/1.73 ESTIMA PORSCHE GFR IS code = 1092) sq m NOT ACCURATE CREATININE CLEARANCE IN PREDICTING GLOMERULAR FILTRATION RATE . ESTIMATED GFR I S NOT APPLICABLE FOR DIALYSIS PATIEN TS. Wood Grainer ID - [id number] ID - [id number] ID - [id number] ID - [id number] ID - [id number] ID - [id number] ID - [id number] ID - [id number] ID - [id number] TIME/INR 2020-08-18 11:24:00 Test Item Value Reference Range Interpretation Comments PROTIME (KATHLEEN) 11.5 seconds 9.3-12.0 Final Infor mation (test code = 759) (Auto Outp ut) INR (BEAKER) (test 1.04 See_Comment Final Inf ormation code = 370) (Auto Output) [Automated mess age] The system allGreenup generated this result transmitted ref erence range: <=5.90. The reference range was not used to int erpret this result as normal/abnormal . RECOMMENDED COUMADIN/WARFARIN INR THERAPY RANGESSTANDARD DOSE: 2.0 - 3.0 Includes: PROPHYLAXIS forvenous thrombosis, systemic embolization; TREATMENT for venous thrombosis and/or pulmonary embolus.HIGH RISK: Target INR is 2.5-3.5 for patients with mechanical heart valves.POCT-GLUCOSE [id number] 06:15:00 Test Item Value Reference Range Interpretation Comments POC-GLUCOSE METER 328 mg/dL 70-110 H : Notified RN/: TESTED (KATHLEEN) (test code AT [facility] [address] = 1538) [facility] [address]: Wood Grainer/Techni ras ID = [id number] for Yaquelin Damico Chest 1 [id number] 09:10:51Impression: Moderate cardiomegaly without acute pulmonary process. RL: 460 AFC: [id number] Electronicallysigned by Angeli Xiong MD, PhD at 06/04/2020 3:10 AMOrdering physician: CHEL GARRIDO Indication: Chest pain, fall Comparison: None Findings: Single AP view of the chest. The cardiopericardialsilhouette ismoderately enlarged. A left internal jugular port catheter is in place,terminating in the brachiocephalic vein. There is a ventriculoperitonealshunt projecting over the left neck. The lungs are clear bilaterally. Thevisualized bony thorax is intact. [facility], Radiant Results Inft User - 06/04/2020 3:11 AM CSTOrdering physician: CHEL GARRIDO Indication: Chest pain, fallComparison: NoneFindings: Single AP view of the chest. The cardiopericardial silhouette ismoderately enlarged. A left internal jugular port catheter is in place,terminating in the brachiocephalic vein. There is a ventric uloperitonealshunt projecting over the left neck. The lungs are clear bilaterally. Thevisualized bony thorax is intact.IMPRESSIONImpression:Moderate cardiomegaly without acute pulmonary process.RL: 460AFC: [id number] signed by Angeli Xiong MD, PhD at 06/04/2020 3:10 [facility] VW [id number] 09:07:20 No acute osseous abnormality of the right wrist. RL: 460 AFC: [id number] Ordering physician: CHEL GARRIDO INDICATION: Right wristpain, status post fall COMPARISON: None FINDINGS: 3 views of the right wrist. No acute fracture or dislocation isappreciated. [facility], Radiant Results Inft User - 06/04/2020 3:08 AM CSTOrdering physician: CHEL GARRIDOINDICATION: Right wrist pain, status post fallCOMPARISON: NoneFINDINGS: 3 views ofthe right wrist. No acute fracture or dislocation isappreciated.IMPRESSIONNo acute osseous abnormality of the right wrist.RL: 460AFC: [id number] signed by Angeli Xiong MD, PhD at 06/04/2020 3:07 AM[facility]CT Cervical Spine W/O Contrast 2020-06-04 09:05:35Impression: No acute fracture or dislocation in the cervical spine. Status post prior posterior decompression at C2-C3 and posterior fusion anddecompression at C5-T1. Questionable osteolysis in the anterior body of C7, stable compared toprior CT of 05/27/2020. RL: 460 AFC: [id number] Electronically signedby Angeli Xiong MD, PhD at 06/04/2020 3:05 AMOrdering physician: CHEL GARRIDO Indication: Acute neck trauma, neck pain, fall Comparison: CT of the cervical spine dated 05/27/2020 Technique: Axial images of the cervical spine were performed withoutadministration of intravenous contrast material. Images were reformatted incoronal and sagittal plane. CT scan was performed according to ALARA (aslow as reasonably achievable) policy. Findings: No acute fracture or dislocation of the cervical spine isappreciated. There is no apical pneumothorax. The cervical spine is innormal alignment. The patient is status post prior posterior decompressionat C2-C3 and posterior fusion and posterior decompression at C5-T1. Thereis questionable osteolysis of of the anterior aspect of C7. [facility], Radiant Results Inft User - 06/04/2020 3:06 AM CSTOrdering physician: CHEL GARRIDOIndication: Acute neck trauma, neck pain, fallComparison: CT of the cervical spine dated 05/27/2020Technique: Axial images of the cervical spine were performed withoutadministration of intravenous contrast material. Images were reformatted incoronal and sagittal plane. CT scan was performed according to ALARA (aslow as reasonably achievable) policy.Findings: No acute fracture or dislocation of the cervical spine isappreciated. There is no apical pneumothorax. The cervical spine is innormal alignment. The patient is status post prior posterior decompressionat C2-C3 and posterior fusion and posterior decompression at C5-T1. Thereis questionable osteolysis of of the anterior aspect of C7.IMPRESSIONImpression:No acute fracture or dislocation in the cervical spine.Status post prior posterior decompression at C2-C3 and posterior fusion anddecompression at C5- T1.Questionable osteolysis in the anterior body of C7, stable compared toprior CT of 05/27/2020.RL: 460AFC: [id number] signed by Angeli Xiong MD, PhD at 06/04/2020 3:05 [facility] PEL[facility] W [id number] 04:44:00 1. ?No acute abnormality in abdomen or pelvis.2. ?Circumferential wall thickening of the bladder, likely due to poordistention; however, correlation with physical and laboratory findings isrecommendedto rule out cystitis.3. ?Small right pleural effusion with underlying atelectasis.4. ?Multiple unchanged additional findings as above. Preliminary Report Dictated by Resident: Keon Sebastian ?MD Melanie., have reviewed this study and agree withthe above report.CT ABDOMEN PELVIS W CONTRAST HISTORY: 75 years-old; female; Abd pain, acute, generalized COMPARISON: 05/27/2020 CT abdomen pelvis TECHNIQUE AND FINDINGS: Contiguous axial imaging from the level of the lungbases through the proximal thighs was performed after the uncomplicatedadministration of 120 ?cc of intravenous Omnipaque contrast. Coronal andsagittal reconstructions were obtained. ?Auto mA and/or iterativereconstruction were used to reduce radiation dose. CT DLP was 692 mGy/cm. FINDINGS: LOWER THORAX: Small left pleural effusion with underlying compressiveatelectasis. Small sized hiatal hernia is noted. LIVER: No focal hepatic lesions. Normal contour. GALLBLADDER AND BILIARY TREE: No intra or extrahepatic biliary ductaldilation. SPLEEN: Unremarkable. PANCREAS: No ductal dilatation or masses ADRENAL GLANDS: No adrenal lesions. KIDNEYS: No hydronephrosis or stones. Homogeneous and symmetricalenhancement. Multiple bi lateral renal cysts are again noted. GI TRACT: No dilation or bowel wall thickening. The appendix isnot clearlyvisualized, however no inflammatory stranding is noted about the cecum tosuggest appendicitis.. PERITONEUM AND RETROPERITONEUM: No free air or fluid collection. Multipleloops of presumed BRICK AND TILE MAKING MACHINE OPERATOR s sandoval in the upper abdomen noted with the tip in theright subhepatic area, no abnormal collection noted at tip.. LYMPH NODES: No intra-abdominal or pelvic lymph node enlargement. PELVIS/BLADDER: Bladderis decompressed with circumferential wallthickening out of proportion for the degree of distention VE SSELS: Moderate atherosclerotic calcification of the aorta and itsprimary branches. BONES AND SOFT TISSUES: No suspicious lytic or sclerotic bony lesions.There is diffuse bone demineralization. Redemonstration of L2 compressiondeformity involving superior endplate with approximately 20% height loss. Small fat-containing above hernia. Sarcopenia is noted. [facility], Radiant Results Inft User - 06/02/2020 10:45 PM CSTCT ABDOMEN PELVIS W CONTRASTHISTORY: 75 years-old; female; Abd pain, acute, generalized COMPARISON: 05/27/2020 CT abdomen pelvisTECHNIQUE AND FINDINGS: Contiguous axial imaging from the level of the lungbases through the proximal thighs was performed after the uncomplicatedadministration of120 cc of intravenous Omnipaque contrast. Coronal andsagittal reconstructions were obtained. Auto mA and/or iterativereconstruction were used to reduce radiation dose. CT DLP was 692 mGy/cm.FINDINGS:LOWER THORAX: Small left pleural effusion with underlying compressiveatelectasis. Small sized hiatal hernia is noted.LIVER: No focal hepatic lesions. Normal contour.GALLBLADDER AND BILIARY TREE: No intra or extrahepatic biliary ductaldilation. SPLEEN: Unremarkable.PANCREAS: No ductal dilatation or massesADRENAL GLANDS: No adrenal lesions.KIDNEYS: No hydronephrosis or stones. Homogeneous and symmetricalenhancement. Multiple bilateral renal cysts are again noted.GI TRACT: No dilation or bowel wall thick ening. The appendix is not clearlyvisualized, however no inflammatory stranding is noted about the cecum tosuggest appendicitis..PERITONEUM AND RETROPERITONEUM: No free air or fluid collection. Multipleloops of presumed BRICK AND TILE MAKING MACHINE OPERATOR shunt in the upper abdomen noted with the tip in theright subhepatic area, no abnormal collection noted at tip..LYMPH NODES: No intra-abdominal or pelvic lymph node enlargement.PELVIS/BLADDER: Bladder is decompressed with circumferential wallthickening out of proportion for the degree of distentionVESSELS: Moderate atherosclerotic calcification of the aorta and itsprimary branches.BONES AND SOFT TISSUES: No suspicious lytic or sclerotic bony lesions.There is diffuse bone demineralization. Redemonstration of L2 compressiondeformity involving superior endplate with approximately 20% height loss. Small fat-containing above hernia. Sarcopenia is noted. IMPRESSION1. No acute abnormality in abdomen or pelvis.2. Circumferential wall thickening of the bladder, likely due to poordistention; however, correlation with physical and laboratory findings isrecommended to rule out cystitis.3. Small right pleural effusion with underlying atelectasis.4. Multiple unchanged additional findings as above.Preliminary Report Dictated by Resident: Jesika Armstrong, Keon Navarro MD., have reviewed this study and agree withthe above report. [facility]inalysis[facility] 03:50:00 Test Item Value Reference Range Interpretation Comments APPEARANCE (test code = Hazy Clear A 9769002456) COLOR (test code = Veronique Yellow A 8780852535) PH (test code = 4.8-8.0 6265365534) SP GRAVITY (test code = 1.003-1.030 7724539450) GLU U QUAL (test code = Normal Normal 5155169532) BLOOD (test code = Negative Negative INTERFERE NCE FROM 1091168728) ASCORBIC ACID M AY CAUSE FALSE NEG ATIVE RESULT KETONES (test code = 5 mg/dL Negative A 3221662837) PROTEIN (test code = 100 mg/dL Negative A 2887-8) UROBILIN (test code = Normal Normal 5368535629) BILIRUBIN (test code = Negative Negative 0362950605) NITRITE (test code = Positive Negative A 4536706707) LEUK REJI (test code = Negative Negative 5590876923) RBC/HPF (test code = See_Comment [Autom ated message] 4091862376) The system allGreenup generated this result transmitted ref erence range: 0 - 3 HP F. The reference range was not used to int erpret this result as normal/abnormal . WBC/HPF (test code = See_Comment H [Autom ated message] 9548977989) The system allGreenup generated this result transmitted ref erence range: 0 - 5 HP F. The reference range was not used to int erpret this result as normal/abnormal . BACTERIA (test code = Many Negative A 2205825592) MUCOUS (test code = Marked Negative LPF A 5702781679) SQ EPITH (test code = HPF 1013520075) HYAL CAST (test code = See_Comment H [Aut omated message] 3587581735) The system [employer]Greenup generated this result transmitted ref erence range: <=2 LPF. The reference range was not used to int erpret this result as normal/abnormal . Lab Interpretation Abnormal (test code = 16168-7) [facility] Marshall[facility]roponin [id number] 02:53:00 Test Item Value Reference Range Interpretation Comments TROPONIN I (test 0.028 ng/mL See_Comment [Automated code = 8906174899) message] The system which generated this result transmitted reference range : <=0.034. The reference range was not used to interpret this result as normal/abnormal . ZIA (test code = Equal or Less than ZIA) 0.034 ng/ml---Normal ?Note: Cardiac troponin begins to rise 3-4 hours after the onset of ischemia. Repeat in 4-6 hours if the sample was drawn within 3-4 hours of the onset of the symptom and found normal. Between 0.035 and 0.120 ng/mL--- Borderline. Questionable myocardial injury or necrosis ? ?Note: Serial measurement may be necessary to confirm or exclude the diagnosis of myocardial injury or necrosis; Clinical correlation (symptoms, EKGs, imaging studies, and others) required; Repeat in 4-6 hours if clinically indicated. ? Equal or Higher than 0.121 ng/mL---Abnormal. Myocardial Injury or Necrosis Likely ? Biotin has been reported to cause a negative bias, interpret results relative to patient's use of biotin. ? Lab Interpretation Normal (test code = 54118-4) [facility] (NA, K, CL, CO2, GLUCOSE, BUN, CREATININE, CA)2020-06-03 02:41:00 Test Item Value Reference Range Interpretation Comments NA (test code = 133 mmol/L 135-145 L 0266861911) K (test code = 5.1 mmol/L 3.5-5 H 6542641449) CL (test code = 103 mmol/L 98-108 1220317608) CO2 TOTAL (test code = 27 mmol/L 23-31 3847899693) AGAP (test code = 2-16 6420764340) BUN (test code = 18 mg/dL 7-23 4915266711) GLUCOSE (test code = 152 mg/dL 70-110 H 2334487449) CREATININE (test code = 0.75 mg/dL 0.5-1.04 1405964084) CALCIUM (test code = 8.5 mg/dL 8.6-10.6 L 4938788547) eGFR Calculation mL/min/1.73m2 (Non-) (test code = 0641714763) eGFR Calculation mL/min/1.73m2 () (test code = 1973313056) ZIA (test code = ZIA) Association of Glomerular Filtration Rate (GFR) and Staging of Kidney Disease* + --+ --+ ------+| GFR (mL/min/1.73 m2) ?| With Kidney Damage ?| ?Without Kidney Damage+ --------+ --------+ +| ?>90 ?| ?Stage one ?| ? Normal ?+ ---+ ---+ -------+| ?60-89 ?| ?Stage two ?| ? Decreased GFR ? + --+ --+ ------+| ?30-59 ?| ?Stage three ?| ? Stage three ? + --+ --+ ------+| ?15-29 ?| ?Stage four ? | ? Stage four ?+ ---+ ---+ -------+| ?<15 (or dialysis) ? ?| ?Stage five ? | ? Stage five ?+ ---+ ---+ -------+ *Each stage assumes the associated GFR level has been in effect for at least three months. ?Stages 1 to 5, with or without kidney disease, indicate chronic kidney disease. Notes: Determination of stages one and two (with eGFR >59mL/min/1.73 m2) requires estimation of kidney damage for at least three months as defined by structural or functional abnormalities of the kidney, manifested by either:Pathological abnormalities or Markers of kidney damage (including abnormalities in the composition of the blood or urine or abnormalities in imaging tests). Lab Interpretation Abnormal (test code = 65084-3) [facility] (ALB, T.PRO, BILI T, BU/BC, ALT, AST, ALK PHOS)2020-06-03 02:41:00 Test Item Value Reference Range Interpretation Comments TOTAL BILI (test code = 3986560158) 0.8 mg/dL 0.1-1.1 BILI UNCON (test code = 8894268258) 0.5 mg/dL 0.1-1.1 BILI CONJ (test code = 5078228016) 0.0 mg/dL 0-0.3 T PROTEIN (test code = 7466404450) 6.5 g/dL 6.3-8.2 ALBUMIN (test code = 8781955430) 3.5 g/dL 3.5-5 ALK PHOS (test code = 4874724349) 80 U/L 34-122 ALTv (test code = 1742-6) 18 U/L 5-35 AST(SGOT) (test code = 9621320057) 60 U/L 13-40 H Lab Interpretation (test code = Abnormal 70284-3) [facility] MarshallLipase [id number] 02:41:00 Test Item Value Reference Range Interpretation Comments LIPASE (test code = 4454039201) 30 U/L 0-220 Lab Interpretation (test code = Normal 24671-6) [facility]NES[facility]UM2021-01-03 02:41:00 Test Item Value Reference Range Interpretation Comments MAGNESIUM (test code = 9483406687) 1.9 mg/dL 1.7-2.4 Lab Interpretation (test code = Normal 21654-1) [facility] (ID NOW RAPID TESTING)2020-06-03 02:41:00 Test Item Value Reference Range Interpretation Comments SARS-CoV-2 Rapid ID NOW Positive Not Detected A (test code = 21198-0) ZIA (test code = ZIA) ID NOW COVID-19 Assay is an isothermal nucleic acid amplification test intended for the qualitative detection of nucleic acid from SARS-CoV-2 viral RNA in nasopharyngeal (BLOWER OPERATOR) specimens. It is used under Emergency Use Authorization (EUA) by FDA. The limit of detection (LOD) of the assay is 125 Genome Equivalents/mL. A positive result is indicative of the presence of SARS-CoV-2 RNA. ?Clinical correlation with patient history and other diagnostic information is necessary to determine patient infection status. A negative (Not Detected) result does not preclude SARS-CoV-2 infection. In patients with clinical symptoms and other tests that are consistent with SARS-CoV-2 infection, negative results should be treated as presumptive negative and a new specimen should be tested with alternative PCR molecular test. Invalid: Please collect a new specimen for repeat patient testing if clinically indicated. Lab Interpretation Abnormal (test code = 88090-9) [facility] with [id number] 02:40:00 Test Item Value Reference Range Interpretation Comments WBC (test code = See_Comment H [Automated 6690-2) message] The system which generated this result transmit porsche reference range : 4.30 - 11.10 10*3/?L. The reference range was not used to interpret this result as normal/abnormal . RBC (test code = See_Comment [Automated 789-8) message] The system which generated this result transmit porsche reference range : 3.93 - 5.25 10*6/?L. The reference range was not used to interpret this result as normal/abnormal . HGB (test code = 10.3 g/dL 11.6-15 L 718-7) HCT (test code = 35.7 % 35.7-45.2 4544-3) MCV (test code = 75.3 fL 80.6-95.5 L 787-2) MCH (test code = 21.7 pg 25.9-32.8 L 785-6) MCHC (test code = 28.9 g/dL 31.6-35.1 L 786-4) RDW-SD (test code = 54.1 fL 39-49.9 H 25133-1) RDW-CV (test code = 20.3 % 12-15.5 H 788-0) PLT (test code = See_Comment [Automated 777-3) message] The system which generated this result transmit porsche reference range : 166 - 358 10*3/ ?L. The reference range was not u sed to interpret th is result as normal/abnormal . MPV (test code = 11.1 fL 9.5-12.9 54569-0) NRBC/100 WBC (test See_Comment [Automat ed code = 6059982979) message] The system which generated this result transmit porsche reference range : 0.0 - 10.0 /100 WBCs. The reference range was not used to interpret this result as normal/abnormal . NRBC x10^3 (test code See_Comment [Auto mated = 5052675530) message] The system which generated this result transmit porsche reference range : 10*3/?L. The reference range was not used to interpret this result as normal/abnormal . GRAN MAT (NEUT) % 89.1 % (test code = 770-8) IMM GRAN % (test code 1.00 % = 5011973619) LYMPH % (test code = 4.5 % 736-9) MONO % (test code = 5.2 % 5905-5) EOS % (test code = 0.0 % 713-8) BASO % (test code = 0.2 % 706-2) GRAN MAT x10^3(ANC) 10.88 10*3/uL 1.88-7.09 H (test code = 9166451123) IMM GRAN x10^3 (test 0.12 10*3/uL 0-0.06 H code = 7894090722) LYMPH x10^3 (test code 0.55 10*3/uL 1.32-3.29 L = 731-0) MONO x10^3 (test code 0.63 10*3/uL 0.33-0.92 = 742-7) EOS x10^3 (test code = <0.03 0.03-0.39 L 711-2) BASO x10^3 (test code 0.03 10*3/uL 0.01-0.07 = 704-7) Lab Interpretation Abnormal (test code = 94787-2) [facility] MarshallLactic Acid Whole [id number] 02:23:00 Test Item Value Reference Range Interpretation Comments LACTIC ACID (test code = 1.74 mmol/L 4404199944) [facility] ONLY COVID [id number] 19:26:00COVID DMT InterpretationInterpretation/Recommendations: Molecular NAAT Tests for Active Infection with the SARS-CoV-2 Virus: This result indicates that the patient has tested negative on one occasion for the SARS-CoV-2 virus that causes COVID-19 illness. This most likely indicates that the patient does not have an active infection with the SARS-CoV-2 virus. However, infection is not completely ruled out as the false negative rate for molecular NAAT testing using a nasopharyngeal sample can be up to 30%, mostly dependent on the timing of sample collection in relation to illness onset and any deficiencies in sampling techniques. If the patient continues to have persistent or worsening symptoms concerning for COVID-19 illness, a repeat NAAT test (PCR, Rapid ID Now, etc.) should be performed, at which time the SARS-CoV-2 virus - if present - may have reached a detectable viral load (usually peaking by the end of the first week of symptoms). Tests for IgM and/or IgG Antibodies to SARS-CoV-2 Virus: Testing for IgM and IgG antibodies 1-3 weeks after illness onset will indicate whether the patient has produced antibodies to the virus. At this time, it is not known if the production of antibodies - specifically IgG antibodies - indicates whether the patient is immune to future infections with the SARS-CoV-2 virus. ? ? Interp retation Result Comments:These interpretation comments are based upon all COVID- 19 testing the patient has had at [facility], including molecular NAAT testing (more commonly known as PCR testing and Rapid IDNow testing) and antibody testing. It does not take into account any testing that a patient has had outside of the [facility] medical record. [facility] LABORATORY SERVICESCOVID MpchoigSHPF-EaZ-7 Rapid ID NOW (no units) ? ? Date ? Value ? 05/27/2020 ? Not Detected ? [facility]ORAT[facility] SERVICESUnThe [facility] Medical CenterPROCALCITONIN2020-12-28 16:39:00 Test Item Value Reference Range Interpretation Comments Procalcitonin (test 0.03 ng/mL <0.07 code = 9423097947) ZIA (test code = ZIA) INTERPRETATION OF PROCALCITONIN RESULTS IN ADULTS >= 18 YEARS OF AGE Initiation and discontinuation of antibiotics on patients with suspected or confirmed Lower Respiratory Tract Infection in Adults >= 18 years of age. + +-------- --------+ + -----+|Procalcitonin |Interpretation ?|Antibiotic ? ? |Considerations ? |ng/mL ? | ?|recommendation | ? + +-------- --------+ + -----+| <0.1 ? | Bacterial ? ? ?| Strongly ? ? ?| ? | ?| infection very | discouraged ? | Overruling: ? | ?| unlikely ? ? ? | ? | ? Clinically unstable ? ? ? + +-------- --------+ + ? High risk for adverse ? ? | <0.25 ?| Bacterial ? ? ?| Discouraged ? | ? outcome ? | ?| infection ? ? ?| ? | ? SEE IMPORTANT NOTE ?| ?| unlikely ? ? ? | ? | ? + +-------- --------+ + -----+| >=0.25 ? ? ? | Bacterial ? ? ?| Encouraged ? ?| ? | ?| infection ? ? ?| ? | ? | ?| likely ? | ? | Consider treatment failure ?+ +------- ---------+ -+ if levels does not decrease | >0.5 ? | Bacterial ? ? ?| Strongly ? ? ?| appropriately ? | ?| infection very | encouraged ? ?| ? | ?| likely ? | ? | ? + +-------- --------+ + -----+ Discontinuation of antibiotics in high-acuity patients with suspected or confirmed sepsis in Adults >= 18 years of age. + +-------- --------+ + -----+|Procalcitonin |Interpretation ?|Antibiotic ? ? |Considerations ? |ng/mL ? | ?|recommendation | ? + +-------- --------+ + -----+| <0.25 ?| Bacterial ? ? ?| Strongly ? ? ?| ? | ?| infection very | discouraged ? | Overruling: ? | ?| unlikely ? ? ? | ? | ? Clinically unstable ? ? ? + +-------- --------+ + ? High risk for adverse ? ? | <0.5 or drop | Bacterial ? ? ?| Discouraged ? | ? outcome ? | >80% from ? ?| infection ? ? ?| ? | ? SEE IMPORTANT NOTE ?| highest PCT ?| unlikely ? ? ? | ? | ? | level ?| ?| ? | ? + +-------- --------+ + -----+| >=0.5 ?| Bacterial ? ? ?| Encouraged ? ?| ? | ?| infection ? ? ?| ? | ? | ?| likely ? | ? | Consider treatment failure ?+ +------- ---------+ -+ if levels does not decrease | >1.0 ? | Bacterial ? ? ?| Strongly ? ? ?| appropriately ? | ?| infection very | encouraged ? ?| ? | ?| likely ? | ? | ? + +-------- --------+ + -----+ Percentage of drop of Procalcitonin calculation for Discontinuation of antibiotics in high-acuity patients with suspected or confirmed sepsis in Adults >= 18 years of age. ? Procalcitonin highest{}-Procalcitonin current{}Delta Procalcitonin = x100% ? Procalcitonin current {} IMPORTANT NOTE: Procalcitonin may be elevated without bacterial infection by physiologic stress related to trauma, mays, chronic dialysis, metastatic cancer, surgery in the past seven days, malaria, some fungal infections, and some forms of vasculitis. The interpretation algorithm may not apply to patients with immunosuppression (equivalent of >10 mg of prednisone daily), HIV with CD4 cell count < 350 cells/mm3, active malignancy on systemic chemotherapy, solid organ transplant or hematopoietic stem cell transplantation, or hospital acquired pneumonia. Additionally, some clinical trials of procalcitonin have excluded patients with shock requiring vasopressor use, acute respiratory failure requiring mechanical ventilation, or those with known lung abscess/empyema. For further information please refer to:[email or web address] Lab Interpretation Normal (test code = 58032-4) [facility]2020-[facility]-28 14:09:00 Test Item Value Reference Range Interpretation Comments POCT GLU (test code = 2093539831) 123 mg/dL 70-110 H Lab Interpretation (test code = Abnormal 84311-8) [facility] [id number] 13:16:00 Test Item Value Reference Range Interpretation Comments TROPONIN I (test 0.012 ng/mL See_Comment [Automated code = 1205991928) message] The system which generated this result transmitted reference range : <=0.034. The reference range was not used to interpret this result as normal/abnormal . ZIA (test code = Equal or Less than ZIA) 0.034 ng/ml---Normal ?Note: Cardiac troponin begins to rise 3-4 hours after the onset of ischemia. Repeat in 4-6 hours if the sample was drawn within 3-4 hours of the onset of the symptom and found normal. Between 0.035 and 0.120 ng/mL--- Borderline. Questionable myocardial injury or necrosis ? ?Note: Serial measurement may be necessary to confirm or exclude the diagnosis of myocardial injury or necrosis; Clinical correlation (symptoms, EKGs, imaging studies, and others) required; Repeat in 4-6 hours if clinically indicated. ? Equal or Higher than 0.121 ng/mL---Abnormal. Myocardial Injury or Necrosis Likely ? Biotin has been reported to cause a negative bias, interpret results relative to patient's use of biotin. ? Lab Interpretation Normal (test code = 20843-1) [facility] WITH [id number] 10:52:00 Test Item Value Reference Range Interpretation Comments WBC (test code = See_Comment H [Automated 6290-2) message] The system which generated this result transmit porsche reference range : 4.30 - 11.10 10*3/?L. The reference range was not used to interpret this result as normal/abnormal . RBC (test code = See_Comment [Automated 549-8) message] The system which generated this result transmit porsche reference range : 3.93 - 5.25 10*6/?L. The reference range was not used to interpret this result as normal/abnormal . HGB (test code = 8.4 g/dL 11.6-15 L 718-7) HCT (test code = 30.6 % 35.7-45.2 L 4544-3) MCV (test code = 77.7 fL 80.6-95.5 L 787-2) MCH (test code = 21.3 pg 25.9-32.8 L 785-6) MCHC (test code = 27.5 g/dL 31.6-35.1 L 786-4) RDW-SD (test code = 55.6 fL 39-49.9 H 26636-8) RDW-CV (test code = 19.9 % 12-15.5 H 788-0) PLT (test code = See_Comment [Automated 777-3) message] The system which generated this result transmit porsche reference range : 166 - 358 10*3/ ?L. The reference range was not u sed to interpret th is result as normal/abnormal . MPV (test code = 10.3 fL 9.5-12.9 46069-4) NRBC/100 WBC (test See_Comment [Automat ed code = 9308479027) message] The system which generated this result transmit porsche reference range : 0.0 - 10.0 /100 WBCs. The reference range was not used to interpret this result as normal/abnormal . NRBC x10^3 (test code See_Comment [Auto mated = 7466398905) message] The system which generated this result transmit porsche reference range : 10*3/?L. The reference range was not used to interpret this result as normal/abnormal . GRAN MAT (NEUT) % 81.9 % (test code = 770-8) IMM GRAN % (test code 1.10 % = 5878985094) LYMPH % (test code = 11.1 % 736-9) MONO % (test code = 5.4 % 5905-5) EOS % (test code = 0.1 % 713-8) BASO % (test code = 0.4 % 706-2) GRAN MAT x10^3(ANC) 16.17 10*3/uL 1.88-7.09 H (test code = 1224229649) IMM GRAN x10^3 (test 0.21 10*3/uL 0-0.06 H code = 9614024717) LYMPH x10^3 (test code 2.18 10*3/uL 1.32-3.29 = 731-0) MONO x10^3 (test code 1.06 10*3/uL 0.33-0.92 H = 742-7) EOS x10^3 (test code = <0.03 0.03-0.39 L 711-2) BASO x10^3 (test code 0.07 10*3/uL 0.01-0.07 = 704-7) Lab Interpretation Abnormal (test code = 94929-0) [facility] IRON BINDING [id number] 10:36:00 Test Item Value Reference Range Interpretation Comments TIBC (test code = 7946169962) 391 ug/dL 250-410 Lab Interpretation (test code = Normal 13704-1) [facility] Metabolic Panel (NA, K, CL, CO2, GLUCOSE, BUN, CREATININE, CA)2020-05-28 10:01:00 Test Item Value Reference Range Interpretation Comments NA (test code = 136 mmol/L 135-145 0879671269) K (test code = 4.4 mmol/L 3.5-5 3444444083) CL (test code = 103 mmol/L 98-108 9823542200) CO2 TOTAL (test code = 31 mmol/L 23-31 0929849961) AGAP (test code = 2-16 6430300009) BUN (test code = 14 mg/dL 7-23 0283970855) GLUCOSE (test code = 167 mg/dL 70-110 H 7697716812) CREATININE (test code = 0.60 mg/dL 0.5-1.04 9776359947) CALCIUM (test code = 8.8 mg/dL 8.6-10.6 6611662488) eGFR Calculation mL/min/1.73m2 (Non-) (test code = 1305095166) eGFR Calculation mL/min/1.73m2 () (test code = 6493046634) ZIA (test code = ZIA) Association of Glomerular Filtration Rate (GFR) and Staging of Kidney Disease* + --+ --+ ------+| GFR (mL/min/1.73 m2) ?| With Kidney Damage ?| ?Without Kidney Damage+ --------+ --------+ +| ?>90 ?| ?Stage one ?| ? Normal ?+ ---+ ---+ -------+| ?60-89 ?| ?Stage two ?| ? Decreased GFR ? + --+ --+ ------+| ?30-59 ?| ?Stage three ?| ? Stage three ? + --+ --+ ------+| ?15-29 ?| ?Stage four ? | ? Stage four ?+ ---+ ---+ -------+| ?<15 (or dialysis) ? ?| ?Stage five ? | ? Stage five ?+ ---+ ---+ -------+ *Each stage assumes the associated GFR level has been in effect for at least three months. ?Stages 1 to 5, with or without kidney disease, indicate chronic kidney disease. Notes: Determination of stages one and two (with eGFR >59mL/min/1.73 m2) requires estimation of kidney damage for at least three months as defined by structural or functional abnormalities of the kidney, manifested by either:Pathological abnormalities or Markers of kidney damage (including abnormalities in the composition of the blood or urine or abnormalities in imaging tests). Lab Interpretation Abnormal (test code = 80771-6) [facility]ERR[facility] [id number] 06:22:00 Test Item Value Reference Range Interpretation Comments FERRITIN (test code = 36.0 ng/mL 264 9566763619) ZIA (test code = ZIA) Biotin has been reported to cause a negative bias, interpret results relative to patient's use of biotin. Lab Interpretation (test Normal code = 28235-8) [facility]2020-12-28 06:13:00 Test Item Value Reference Range Interpretation Comments IRON (test code = 0752445212) 19 ug/dL 50-160 L Lab Interpretation (test code = Abnormal 07582-9) [facility]YROID STIMULATING [id number] 04:53:00 Test Item Value Reference Range Interpretation Comments TSH (test code = See_Comment [Automated message] 3187078270) The system [employer] generated this result transmitted ref erence range: 0.45 - 4 .70 mIU/L. The refe rence range was not u sed to interpret this result as normal/abnor mal. Lab Interpretation (test Normal code = 45027-5) [facility]YCOSYLATED HEMOGLOBIN (A1C)2020-05-28 04:31:00 Test Item Value Reference Range Interpretation Comments HGB A1C (test code = 7.2 % 4-6 H 4548-4) ZIA (test code = ZIA) %A1C (NGSP) Interpretation (ADA)4.8-5.6 ? ? Normal or (Non-Diabetic Range)5.7-6.4 ? ? Increased Risk (Pre-Diabetic)>6.5 ?Diabetes Indicated Lab Interpretation Abnormal (test code = 52943-1) [facility]LIP[facility] PANEL (91704)(TOTAL CHOLESTEROL, TRIGLYCERIDES, HDL)2020-05-28 04:21:00 Test Item Value Reference Range Interpretation Comments CHOL (test code = 135 mg/dL 120-200 1186851907) HDL (test code = 50 mg/dL >50 L 5302674305) HDLC RATIO (test code = See_Comment [Au tomated message] 4999188001) The system [employer] generated this result transmit porsche reference range : <=4.5. The refe rence range was not u sed to interpret th is result as normal/abnormal . TRIG (test code = 119 mg/dL 30-170 5706510175) LDL CHOL (test code = 61 mg/dL See_Comment [Auto mated message] 33979-8) The system [employer] generated this result transmit porsche reference range : <=160. The refe rence range was not u sed to interpret th is result as normal/abnormal . VLDL (test code = 24 mg/dL 5-60 3348490450) Lab Interpretation (test Abnormal code = 04330-0) [facility] [id number] 03:17:00 Test Item Value Reference Range Interpretation Comments POCT Creatinine (test code = 0.6 mg/dL 0.5-1.0 1329027081) Lab Interpretation (test code = Normal 14555-4) [facility] TRAUMA THORAX W [id number] 02:31:20 Sclerotic lesion within T5 vertebral body with some mild vertebral heightloss. This may be sequela of prior fracture underlying pathologic lesionnot excluded. Small bilateral pleural effusions and adjacent atelectasis at the bases. Background edema type pattern. Possible esophagitis. ICAL HISTORY:Trauma. Pain. COMPARISON:None TECHNIQUE: CT scan of the chest and thoracic spine performed. Contiguous axial CTimages were obtained after administration of intravenous contrast material. Study was performed using ALARA principle. FINDINGS:Small bilateral pleural effusions. There is diffuse interstitial thickeningand indistinctness of the pulmonary vasculature, suggesting pulmonaryedema. No pneumothorax. Atelectasis at the lung bases. No mediastinal hemorrhage. No pericardial effusion. There are multiplesmall mediastinal and hilar lymph nodes, nonspecific and may be reactive.Each individually does not meet size criteria for pathologic enlargement.Wall thickening of the esophagus, possible esophagitis. No appreciable acute displaced ribfractures. Diffuse anterior osteophytosis, with disc arthropathy. There is scleroticlesion within T5 vertebral body, possible metastatic disease. Some heightloss at this location, without acute fracture lines. [facility], Radiant Results Inft User - 05/27/2020 8:32 PM CSTCLINICAL HISTORY:Trauma. Pain.COMPARISON:NoneTECHNIQUE: CT scan of the chest and thoracic spine performed. Contiguous axial CTimages were obtained after administration of intravenous contrast material.Study was performed using ALARA principle.FINDINGS:Small bilateral pleural effusions. There is diffuse interstitial thickeningand indistinctness of the pulmonary vasculature, suggesting pulmonaryedema. No pneumothorax.Atelectasis at the lung bases.No mediastinal hemorrhage. No pericardial effusion. There are multiplesmall mediastinal andhilar lymph nodes, nonspecific and may be reactive.Each individually does not meet size criteria forpathologic enlargement.Wall thickening of the esophagus, possible esophagitis.No appreciable acute displaced rib fractures.Diffuse anterior osteophytosis, with disc arthropathy. There is scleroticlesion within T5 vertebral body, possible metastatic disease. Some heightloss at this location, without acute fracture lines.IMPRESSIONSclerotic lesion within T5 vertebral body with some mild vertebral heightloss. This may be sequela of prior fracture underlying pathologic lesionnot excluded.Small bilateralpleural effusions and adjacent atelectasis at the bases.Background edema type pattern.Possible esophagitis. [facility] THORACIC SPINE WO [id number] 02:31:20Sclerotic lesion within T5 vertebral body with some mild vertebral heightloss. This may be sequela of prior fracture underlying pathologic lesionnot excluded. Small bilateral pleural effusions and adjacent atelectasis at the bases. Background edema type pattern. Possible esophagitis. ICAL HISTORY:Trauma. Pain. COMPARISON:None TECHNIQUE: CT scan of the chest and thoracic spine performed. Contiguous axial CTimages were obtained after a dministration of intravenous contrast material. Study was performed using ALARA principle. FINDINGS:Small bilateral pleural effusions. There is diffuse interstitial thickeningand indistinctness of the pulmonary vasculature, suggesting pulmonaryedema. No pneumothorax. Atelectasis at the lung bases. No m ediastinal hemorrhage. No pericardial effusion. There are multiplesmall mediastinal and hilar lymph nodes, nonspecific and may be reactive.Each individually does not meet size criteria for pathologic enlargement.Wall thickening of the esophagus, possible esophagitis. No appreciable acute displaced ribfractures. Diffuse anterior osteophytosis, with disc arthropathy. There is scleroticlesion within D8ecfmdkdtu body, possible metastatic disease. Some heightloss at this location, without acute fracture lines. [facility], Radiant Results Inft User - 05/27/2020 8:32 PM CSTCLINICAL HISTORY:Trauma. Pain.COMPAR TREY:NoneTECHNIQUE: CT scan of the chest and thoracic spine performed. Contiguous axial CTimages were obtained after administration of intravenous contrast material.Study was performed using ALARA principle.FINDINGS:Small bilateral pleural effusions. There is diffuse interstitial thickeningand indistinctness of the pulmonary vasculature, suggesting pulmonaryedema. No pneumothorax.Atelectasis at the lung bases.No mediastinal hemorrhage. No pericardial effusion. There are multiplesmall mediastinal andhilar lymph nodes, nonspecific and may be reactive.Each individually does not meet size criteria forpathologic enlargement.Wall thickening of the esophagus, possible esophagitis.No appreciable acute displaced rib fractures.Diffuse anterior osteophytosis, with disc arthropathy. There is scleroticlesion within T5 vertebral body, possible metastatic disease. Some heightloss at this location, without acute fracture lines.IMPRESSIONSclerotic lesion within T5 vertebral body with some mild vertebral heightloss. This may be sequela of prior fracture underlying pathologic lesionnot excluded.Small bilateralpleural effusions and adjacent atelectasis at the bases.Background edema type pattern.Possible esopha gitis. [facility]CT TRAUMA ABDOMEN PELVIS W [id number] 02:27:33Small bilateral pleural effusions and atelectasis at the lung bases. Mild superior endplate compression fracture of L2 vertebral body. No other acute traumatic injury within the abdomen or pelvis. CLINICAL HISTORY:Blunt abdominal trauma. COMPARISON:None TECHNIQUE: CT scan of the abdomen and pelvis ?performed. Contiguous axial CT imageswere obtained after administration of intravenous contrast material. Study was performed using ALARA principle. FINDINGS:Small pleural effusions and adjacent atelectasis at the bases. Liver, pancreas, spleen, adrenal glands unremarkable. Renal cysts. Nohydronephrosis. Cholecystectomy clips. 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 There are no abnormally dilated loops of small or largebowel to suggest bowel obstruction. No surrounding inflammation or wallthickening. No abscess or free air. Fat-containing umbilical hernia. Nohemorrhage or hematomas within the abdomen or pelvis. No evidence of aorticaneurysm or dissection. There are scattered small lymph nodes, nonspecificand may be reactive. None individually meet size criteria for pathologicenlargement. Probable fibroid within the uterus 11 mm. There are degenerative changes of the dorsal spine and visualized bones.There is decreased mineralization of the bones diffusely likely wererelated to osteopenia/osteoporosis. ?Underlying infiltrating or metabolicbone disease couldhave a similar appearance. ?This limits the detection offocal pathology or fractures. There is superior endplate compression of P6tiiojvdmh body, less than 10%. No retropulsion. No involvement of theposterior elements. [facility], Radiant Results Inft User - 05/27/2020 8:28 PM CSTCLINICAL HISTORY:Blunt abdominal trauma.COMPARISON:NoneTECHNIQUE: CT scan of the abdomen and pelvis performed. Contiguous axial CT imageswere obtained after administration of intravenous contrast material.Study was performed using ALARA principle. FINDINGS:Small pleural effusions and adjacent atelectasis at the bases.Liver, pancreas, spleen, adrenal glands unremarkable. Renal cysts. Nohydronephrosis. 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 There are no abnormally dilated loops of small or largebowel to suggest bowel obstruction. No surrounding inflammation or wallthickening. No abscess or free air. Fat- containing umbilicalhernia. Nohemorrhage or hematomas within the abdomen or pelvis. No evidence of aorticaneurysm or dissection. There are scattered small lymph nodes, nonspecificand may be reactive. None individually meet size criteria for pathologicenlargement. Probable fibroid within the uterus 11 mm.There are degenerative changes of the dorsal spine and visualized bones.There is decreased mineralization of the bonesdiffusely likely wererelated to osteopenia/osteoporosis. Underlying infiltrating or metabolicbone disease could have a similar appearance. This limits the detection offocal pathology or fractures. There is superior endplate compression of R9adoqioxmi body, less than 10%. No retropulsion. No involvement of theposterior elements.IMPRESSIONSmall bilateral pleural effusions and atelectasis at the lung bases.Mild superior endplate compression fracture of L2 vertebral body.No other acute traumatic injury within the abdomen or pelvis. [facility] CenterCOVID-[facility] (ID NOW RAPID TESTING)2020-05-28 01:37:00 Test Item Value Reference Range Interpretation Comments SARS-CoV-2 Rapid ID NOW Not Detected Not Detected (test code = 07956-5) ZIA (test code = ZIA) ID NOW COVID-19 Assay is an isothermal nucleic acid amplification test intended for the qualitative detection of nucleic acid from SARS-CoV-2 viral RNA in nasopharyngeal (BLOWER OPERATOR) specimens. It is used under Emergency Use Authorization (EUA) by FDA. The limit of detection (LOD) of the assay is 125 Genome Equivalents/mL. A positive result is indicative of the presence of SARS-CoV-2 RNA. ?Clinical correlation with patient history and other diagnostic information is necessary to determine patient infection status. A negative (Not Detected) result does not preclude SARS-CoV-2 infection. In patients with clinical symptoms and other tests that are consistent with SARS-CoV-2 infection, negative results should be treated as presumptive negative and a new specimen should be tested with alternative PCR molecular test. Invalid: Please collect a new specimen for repeat patient testing if clinically indicated. Lab Interpretation Normal (test code = 65824-0) [facility]2020-12-28 01:35:00 Test Item Value Reference Range Interpretation Comments APPEARANCE (test code = Clear Clear 2455031851) COLOR (test code = Yellow Yellow 2417470088) PH (test code = 4.8-8.0 3078774555) SP GRAVITY (test code = 1.003-1.030 H 9067152835) GLU U QUAL (test code = Normal Normal 3383385128) BLOOD (test code = Negative Negative 9465536723) KETONES (test code = Negative Negative 7196321709) PROTEIN (test code = Negative Negative 2887-8) UROBILIN (test code = Normal Normal 0999508748) BILIRUBIN (test code = Negative Negative 6752882667) NITRITE (test code = Negative Negative 0532119559) LEUK REJI (test code = Negative Negative 4950957589) RBC/HPF (test code = See_Comment [Autom ated message] 1495146606) The system [employer] generated this result transmitted ref erence range: 0 - 3 HP F. The reference range was not used to int erpret this result as normal/abnormal . WBC/HPF (test code = <1 See_Comment [Autom ated message] 5321056006) The system [employer] generated this result transmitted ref erence range: 0 - 5 HP F. The reference range was not used to int erpret this result as normal/abnormal . BACTERIA (test code = Few Negative A 1625755228) MUCOUS (test code = Slight Negative LPF A 0364608979) SQ EPITH (test code = <1 HPF 2511089911) Lab Interpretation (test Abnormal code = 71606-4) [facility] Acid Whole [id number] 00:52:00 Test Item Value Reference Range Interpretation Comments LACTIC ACID (test code = 1.07 mmol/L 0868009219) [facility]PTT2020-12-27 23:38:00 Test Item Value Reference Range Interpretation Comments APTT Patient (test See_Comment [Automat ed code = 3173-2) message] The system which generated this result transmitted reference range : 23 - 38 Seconds . The reference range was not used to interpr et this result as normal/abnormal . ZIA (test code = ZIA) The [facility] patient population mean normal value for aPTT is 30 seconds. Lab Interpretation Normal (test code = 36374-4) [facility] MarshallProthrombin Time (PT) / [id number] 23:36:00 Test Item Value Reference Range Interpretation Comments PROTIME PATIENT (test See_Comment [Auto mated message] code = 5964-2) The system wh ich generated this result transmitted ref erence range: 12.0 - 1 4.7 Seconds. The re ference range was not u sed to interpret this result as normal/abnor mal. INR (test code = 6301-6) Nor mal INR <1.1; Warfarin Therap eutic range 2.0 to 3. 0 or 2.5 to 3.5, dep ending upon the indica tions. Lab Interpretation (test Normal code = 66765-3) [facility] MarshallCREATINE [id number] 23:23:00 Test Item Value Reference Range Interpretation Comments CK (test code = 1526449249) <20 33-194 L Lab Interpretation (test code = Abnormal 10472-5) [facility] MarshallTroponin [id number] 23:15:00 Test Item Value Reference Range Interpretation Comments TROPONIN I (test <0.012 See_Comment [Automated code = 4055274729) message] The system which generated this result transmitted reference range : <=0.034 ng/mL. The reference range was not used to interpr et this result as normal/abnormal . ZIA (test code = Equal or Less than ZIA) 0.034 ng/ml---Normal ?Note: Cardiac troponin begins to rise 3-4 hours after the onset of ischemia. Repeat in 4-6 hours if the sample was drawn within 3-4 hours of the onset of the symptom and found normal. Between 0.035 and 0.120 ng/mL--- Borderline. Questionable myocardial injury or necrosis ? ?Note: Serial measurement may be necessary to confirm or exclude the diagnosis of myocardial injury or necrosis; Clinical correlation (symptoms, EKGs, imaging studies, and others) required; Repeat in 4-6 hours if clinically indicated. ? Equal or Higher than 0.121 ng/mL---Abnormal. Myocardial Injury or Necrosis Likely ? Biotin has been reported to cause a negative bias, interpret results relative to patient's use of biotin. ? Lab Interpretation Normal (test code = 58664-1) [facility] [id number] 23:12:00 Test Item Value Reference Range Interpretation Comments NT-proBNP (test code 569 pg/mL See_Comment H [Autom ated = 7042908792) message] The system which generated this result transmitted reference range : <=125. The reference range was not used to interpret this result as normal/abnormal . ZIA (test code = ZIA) Biotin has been reported to cause a negative bias, interpret results relative to patient's use of biotin. Lab Interpretation Abnormal (test code = 71669-3) [facility] (ALB, T.PRO, BILI T, BU/BC, ALT, AST, ALK PHOS)2020-05-27 23:04:00 Test Item Value Reference Range Interpretation Comments TOTAL BILI (test code = 2136950961) 0.6 mg/dL 0.1-1.1 BILI UNCON (test code = 6146298716) 0.5 mg/dL 0.1-1.1 BILI CONJ (test code = 7729135220) 0.0 mg/dL 0-0.3 T PROTEIN (test code = 9626237239) 6.2 g/dL 6.3-8.2 L ALBUMIN (test code = 2495163042) 3.4 g/dL 3.5-5 L ALK PHOS (test code = 0052662851) 168 U/L 34-122 H ALTv (test code = 1742-6) 22 U/L 5-35 AST(SGOT) (test code = 9615742226) 20 U/L 13-40 Lab Interpretation (test code = Abnormal 33857-2) [facility]2020-[facility]-27 23:04:00 Test Item Value Reference Range Interpretation Comments MAGNESIUM (test code = 9992130175) 1.9 mg/dL 1.7-2.4 Lab Interpretation (test code = Normal 43375-0) [facility] (NA, K, CL, CO2, GLUCOSE, BUN, CREATININE, CA)2020-05-27 23:03:00 Test Item Value Reference Range Interpretation Comments NA (test code = 139 mmol/L 135-145 0419225846) K (test code = 4.3 mmol/L 3.5-5 5771123406) CL (test code = 106 mmol/L 98-108 3885100464) CO2 TOTAL (test code = 32 mmol/L 23-31 H 3650230051) AGAP (test code = 2-16 L 6504077479) BUN (test code = 15 mg/dL 7-23 1518878514) GLUCOSE (test code = 130 mg/dL 70-110 H 6180725098) CREATININE (test code = 0.62 mg/dL 0.5-1.04 3770029191) CALCIUM (test code = 9.0 mg/dL 8.6-10.6 4068370383) eGFR Calculation mL/min/1.73m2 (Non-) (test code = 1362258291) eGFR Calculation mL/min/1.73m2 () (test code = 0716869489) ZIA (test code = ZIA) Association of Glomerular Filtration Rate (GFR) and Staging of Kidney Disease* + --+ --+ ------+| GFR (mL/min/1.73 m2) ?| With Kidney Damage ?| ?Without Kidney Damage+ --------+ --------+ +| ?>90 ?| ?Stage one ?| ? Normal ?+ ---+ ---+ -------+| ?60-89 ?| ?Stage two ?| ? Decreased GFR ? + --+ --+ ------+| ?30-59 ?| ?Stage three ?| ? Stage three ? + --+ --+ ------+| ?15-29 ?| ?Stage four ? | ? Stage four ?+ ---+ ---+ -------+| ?<15 (or dialysis) ? ?| ?Stage five ? | ? Stage five ?+ ---+ ---+ -------+ *Each stage assumes the associated GFR level has been in effect for at least three months. ?Stages 1 to 5, with or without kidney disease, indicate chronic kidney disease. Notes: Determination of stages one and two (with eGFR >59mL/min/1.73 m2) requires estimation of kidney damage for at least three months as defined by structural or functional abnormalities of the kidney, manifested by either:Pathological abnormalities or Markers of kidney damage (including abnormalities in the composition of the blood or urine or abnormalities in imaging tests). Lab Interpretation Abnormal (test code = 57164-4) [facility] Marshall[facility]ase [id number] 23:03:00 Test Item Value Reference Range Interpretation Comments LIPASE (test code = 6731885108) 142 U/L 0-220 Lab Interpretation (test code = Normal 08347-7) [facility] with Vnoooynhlsic8786-05-91 23:02:00 Test Item Value Reference Range Interpretation Comments WBC (test code = See_Comment H [Automated 90-2) message] The system which generated this result transmit porsche reference range : 4.30 - 11.10 10*3/?L. The reference range was not used to interpret this result as normal/abnormal . RBC (test code = See_Comment [Automated 789-8) message] The system which generated this result transmit porsche reference range : 3.93 - 5.25 10*6/?L. The reference range was not used to interpret this result as normal/abnormal . HGB (test code = 8.8 g/dL 11.6-15 L 718-7) HCT (test code = 31.8 % 35.7-45.2 L 4544-3) MCV (test code = 77.9 fL 80.6-95.5 L 787-2) MCH (test code = 21.6 pg 25.9-32.8 L 785-6) MCHC (test code = 27.7 g/dL 31.6-35.1 L 786-4) RDW-SD (test code = 55.7 fL 39-49.9 H 84606-5) RDW-CV (test code = 20.0 % 12-15.5 H 788-0) PLT (test code = See_Comment [Automated 777-3) message] The system which generated this result transmit porsche reference range : 166 - 358 10*3/ ?L. The reference range was not u sed to interpret th is result as normal/abnormal . MPV (test code = 10.8 fL 9.5-12.9 14884-0) NRBC/100 WBC (test See_Comment [Automat ed code = 4687285269) message] The system which generated this result transmit porsche reference range : 0.0 - 10.0 /100 WBCs. The reference range was not used to interpret this result as normal/abnormal . NRBC x10^3 (test code See_Comment [Auto mated = 5773614766) message] The system which generated this result transmit porsche reference range : 10*3/?L. The reference range was not used to interpret this result as normal/abnormal . GRAN MAT (NEUT) % 89.5 % (test code = 770-8) IMM GRAN % (test code 1.40 % = 9630460492) LYMPH % (test code = 5.3 % 736-9) MONO % (test code = 3.0 % 5905-5) EOS % (test code = 0.2 % 713-8) BASO % (test code = 0.6 % 706-2) GRAN MAT x10^3(ANC) 16.41 10*3/uL 1.88-7.09 H (test code = 3028417685) IMM GRAN x10^3 (test 0.25 10*3/uL 0-0.06 H code = 8165736849) LYMPH x10^3 (test code 0.98 10*3/uL 1.32-3.29 L = 731-0) MONO x10^3 (test code 0.55 10*3/uL 0.33-0.92 = 742-7) EOS x10^3 (test code = 0.03 10*3/uL 0.03-0.39 711-2) BASO x10^3 (test code 0.11 10*3/uL 0.01-0.07 H = 704-7) Lab Interpretation Abnormal (test code = 08973-5) [facility] [id number] 05:52:00 Test Item Value Reference Range Interpretation Comments Magnesium Lvl (test code = Magnesium 2.2 1.8-2.4 Lvl) [facility] ERHJQ7464-79-01 05:52:00 Test Item Value Reference Range Interpretation Comments Phosphorus (test code = Phosphorus) 3.3 2.5-4.5 [facility]2020-09-28 05:52:00 Test Item Value Reference Range Interpretation Comments Glucose Lvl (test code = Glucose Lvl) 176 70-99 [facility]2020-09-28 05:52:00 Test Item Value Reference Range Interpretation Comments BUN (test code = BUN) 20 7-22 [place] 808540-09-28 05:52:00 Test Item Value Reference Range Interpretation Comments Creatinine Lvl (test code = Creatinine 0.96 0.50-1.40 Lvl) [facility]2020-09-28 05:52:00 Test Item Value Reference Range Interpretation Comments Sodium Lvl (test code = Sodium Lvl) 141 135-145 [place] 808540-09-28 05:52:00 Test Item Value Reference Range Interpretation Comments Potassium Lvl (test code = Potassium 4.3 3.5-5.1 Lvl) [place] 808540-09-28 05:52:00 Test Item Value Reference Range Interpretation Comments Chloride Lvl (test code = Chloride Lvl) 111 95-109 [facility]2020-09-28 05:52:00 Test Item Value Reference Range Interpretation Comments CO2 (test code = CO2) 27 24-32 [facility]2020-09-28 05:52:00 Test Item Value Reference Range Interpretation Comments AGAP (test code = AGAP) 7.3 10.0-20.0 [place] 808540-09-28 05:52:00 Test Item Value Reference Range Interpretation Comments Calcium Lvl (test code = Calcium Lvl) 8.7 8.5-10.5 [place] 808540-09-28 05:52:00 Test Item Value Reference Range Interpretation Comments eGFR (test code = eGFR) 59 [facility]nqljthBRUHSWRZFE4095-[facility]-31 05:52:00 Test Item Value Reference Range Interpretation Comments WBC (test code = WBC) 19.0 3.7-10.4 [place] 085390-09-28 05:52:00 Test Item Value Reference Range Interpretation Comments RBC (test code = RBC) 3.82 4.20-5.40 [place] 085390-09-28 05:52:00 Test Item Value Reference Range Interpretation Comments Hgb (test code = Hgb) 9.2 12.0-16.0 [facility]manWcpeqauWMEHKGCANA3054-32-42 05:52:00 Test Item Value Reference Range Interpretation Comments Hct (test code = Hct) 29.8 36.0-48.0 [facility]manSscrcrdYWAGRAZFVT7083-85-61 05:52:00 Test Item Value Reference Range Interpretation Comments MCV (test code = MCV) 78.2 80.0-98.0 [facility]QebttggZYJOULEIWZ9815-97-54 05:52:00 Test Item Value Reference Range Interpretation Comments MCH (test code = MCH) 24.1 pg 27.0-31.0 [facility]manWmwzalwBUJZNKWEIO7605-29-59 05:52:00 Test Item Value Reference Range Interpretation Comments MCHC (test code = MCHC) 30.9 32.0-36.0 [facility]manHqkoztkMRJJAKPKWV7212-27-83 05:52:00 Test Item Value Reference Range Interpretation Comments RDW (test code = RDW) 20.2 11.5-14.5 [facility]manMghwpclVXWJUYJHLS6854-75-79 05:52:00 Test Item Value Reference Range Interpretation Comments Platelet (test code = Platelet) 110 133-450 [facility]manAcduntuOZFOWFAAMA0729-43-83 05:52:00 Test Item Value Reference Range Interpretation Comments MPV (test code = MPV) 9.5 7.4-10.4 [facility]manQpquszdKUGVJDMSNW8788-44-97 05:52:00 Test Item Value Reference Range Interpretation Comments Segs (test code = Segs) 78.2 45.0-75.0 [facility]manXlpwbplBBDCQAAIQT0479-89-41 05:52:00 Test Item Value Reference Range Interpretation Comments Lymphocytes (test code = Lymphocytes) 15.4 20.0-40.0 [facility]manVlqgzwnJBPMXSPOIM3239-65-83 05:52:00 Test Item Value Reference Range Interpretation Comments Monocytes (test code = Monocytes) 5.7 2.0-12.0 [facility]manNepzpnqKUPKGCNRLE8787-23-36 05:52:00 Test Item Value Reference Range Interpretation Comments Eosinophils (test code = 0.3 See_Comment [A utomated message] The Eosinophils) system which ge nerated this result tra nsmitted reference range : <=4.0. The reference r evelyn was not used to int erpret this result as normal/abnormal . [facility]manMujnoezNKXKVKUCPU8322-33-43 05:52:00 Test Item Value Reference Range Interpretation Comments Basophils (test code = 0.4 See_Comment [Aut omated message] The Basophils) system which ge nerated this result tra nsmitted reference range : <=1.0. The reference r evelyn was not used to int erpret this result as normal/abnormal . [facility]manTwdfwmmCDPVYGQFVW6389-98-94 05:52:00 Test Item Value Reference Range Interpretation Comments Neutrophils # (test code = Neutrophils 14.9 1.5-8.1 #) [facility]manHeimngaDIUSKJDWXX9095-41-62 05:52:00 Test Item Value Reference Range Interpretation Comments Lymphocytes # (test code = Lymphocytes 2.9 1.0-5.5 #) [facility]manNxtlqogJNKYTEHIJY6523-75-69 05:52:00 Test Item Value Reference Range Interpretation Comments Monocytes # (test code 1.1 See_Comment [Aut omated message] The = Monocytes #) system which generated this result tra nsmitted reference range : <=0.8. The reference r evelyn was not used to int erpret this result as normal/abnormal . [facility]manIjtmgfmTSWJRJOWGX9800-76-28 05:52:00 Test Item Value Reference Range Interpretation Comments Eosinophils # (test code 0.1 See_Comment [A utomated message] The = Eosinophils #) system whic h generated this result tra nsmitted reference range : <=0.5. The reference r evelyn was not used to int erpret this result as normal/abnormal . [facility]manOwxtlcjJRTGMJWETN3754-13-37 05:52:00 Test Item Value Reference Range Interpretation Comments Basophils # (test code 0.1 See_Comment [Aut omated message] The = Basophils #) system which generated this result tra nsmitted reference range : <=0.2. The reference r evelyn was not used to int erpret this result as normal/abnormal . [facility]manFmnznpbHXRVSLSXWR3198-60-26 05:52:00 Test Item Value Reference Range Interpretation Comments Microcyte (test code = 1+ *ABN*(02/27/20 Microcyte) 12:52 AM) [facility]2020-09-28 05:52:00 Test Item Value Reference Range Interpretation Comments Ca Ion WB (test code = Ca Ion WB) 1.22 1.05-1.25 [facility] HospitalPARATHYROID [id number] 05:52:00 Test Item Value Reference Range Interpretation Comments Ca Norm WB (test code = Ca Norm WB) 1.20 1.05-1.25 [facility]2020-09-27 06:07:00 Test Item Value Reference Range Interpretation Comments Magnesium Lvl (test code = Magnesium 2.1 1.8-2.4 Lvl) [facility]2020-09-27 06:07:00 Test Item Value Reference Range Interpretation Comments Glucose Lvl (test code = Glucose Lvl) 253 70-99 [facility]2020-09-27 06:07:00 Test Item Value Reference Range Interpretation Comments BUN (test code = BUN) 14 7-22 [facility]2020-09-27 06:07:00 Test Item Value Reference Range Interpretation Comments Creatinine Lvl (test code = Creatinine 0.74 0.50-1.40 Lvl) [facility]2020-09-27 06:07:00 Test Item Value Reference Range Interpretation Comments Sodium Lvl (test code = Sodium Lvl) 141 135-145 [facility]2020-09-27 06:07:00 Test Item Value Reference Range Interpretation Comments Potassium Lvl (test code = Potassium 4.3 3.5-5.1 Lvl) [facility]2020-09-27 06:07:00 Test Item Value Reference Range Interpretation Comments Chloride Lvl (test code = Chloride Lvl) 112 95-109 [facility]2020-09-27 06:07:00 Test Item Value Reference Range Interpretation Comments CO2 (test code = CO2) 23 24-32 [facility]2020-09-27 06:07:00 Test Item Value Reference Range Interpretation Comments Calcium Lvl (test code = Calcium Lvl) 8.7 8.5-10.5 [facility]2020-09-27 06:07:00 Test Item Value Reference Range Interpretation Comments AGAP (test code = AGAP) 10.3 10.0-20.0 [facility]2020-09-27 06:07:00 Test Item Value Reference Range Interpretation Comments eGFR (test code = eGFR) 80 [facility]2020-09-27 06:07:00 Test Item Value Reference Range Interpretation Comments Phosphorus (test code = Phosphorus) 2.7 2.5-4.5 [facility]manKuiskixZOKLBAENAD5149-59-48 06:07:00 Test Item Value Reference Range Interpretation Comments Segs (test code = Segs) 84.4 45.0-75.0 [facility]manSqkyqdaYUMOHWHOIG1694-62-26 06:07:00 Test Item Value Reference Range Interpretation Comments Lymphocytes (test code = Lymphocytes) 10.8 20.0-40.0 [place] 085390-09-27 06:07:00 Test Item Value Reference Range Interpretation Comments Monocytes (test code = Monocytes) 4.4 2.0-12.0 [place] 085390-09-27 06:07:00 Test Item Value Reference Range Interpretation Comments Eosinophils (test code = 0.1 See_Comment [A utomated message] The Eosinophils) system which ge nerated this result tra nsmitted reference range : <=4.0. The reference r evelyn was not used to int erpret this result as normal/abnormal . [facility]manCcvlyjnQIRTJNUFNS2967-29-66 06:07:00 Test Item Value Reference Range Interpretation Comments Basophils (test code = 0.3 See_Comment [Aut omated message] The Basophils) system which ge nerated this result tra nsmitted reference range : <=1.0. The reference r evelyn was not used to int erpret this result as normal/abnormal . [facility]manWvbmrioPOOQZJGFBF2890-22-72 06:07:00 Test Item Value Reference Range Interpretation Comments Neutrophils # (test code = Neutrophils 14.3 1.5-8.1 #) [facility]manVynpbdxYKXXFEMYOM7013-69-32 06:07:00 Test Item Value Reference Range Interpretation Comments Lymphocytes # (test code = Lymphocytes 1.8 1.0-5.5 #) [place] [address]-09-27 06:07:00 Test Item Value Reference Range Interpretation Comments Monocytes # (test code 0.7 See_Comment [Aut omated message] The = Monocytes #) system which generated this result tra nsmitted reference range : <=0.8. The reference r evelyn was not used to int erpret this result as normal/abnormal . [place] 085390-09-27 06:07:00 Test Item Value Reference Range Interpretation Comments Microcyte (test code = 1+ *ABN*(02/26/20 Microcyte) 1:07 AM) [facility]manWmmzexcWEYRRREGNH1966-19-00 06:07:00 Test Item Value Reference Range Interpretation Comments WBC (test code = WBC) 16.9 3.7-10.4 [facility]manOcjpiarZOVUYLDACA0881-67-27 06:07:00 Test Item Value Reference Range Interpretation Comments RBC (test code = RBC) 3.72 4.20-5.40 [facility]manQydcdovQUXMKZUREL9002-52-26 06:07:00 Test Item Value Reference Range Interpretation Comments Hgb (test code = Hgb) 9.0 12.0-16.0 [facility]manXoorateZIYNHRBQGL5536-40-76 06:07:00 Test Item Value Reference Range Interpretation Comments Hct (test code = Hct) 29.3 36.0-48.0 [facility]manLawniijNLQRXWTCMP7709-27-01 06:07:00 Test Item Value Reference Range Interpretation Comments MCV (test code = MCV) 78.8 80.0-98.0 [facility]manUiphjsiPHRBRWAVXM8342-44-04 06:07:00 Test Item Value Reference Range Interpretation Comments MCH (test code = MCH) 24.1 pg 27.0-31.0 [facility]manSypwnfqDYLNVTUVQB2714-90-89 06:07:00 Test Item Value Reference Range Interpretation Comments MCHC (test code = MCHC) 30.6 32.0-36.0 [facility]manUgmphhgBKTBXFPXOK4375-23-70 06:07:00 Test Item Value Reference Range Interpretation Comments RDW (test code = RDW) 19.6 11.5-14.5 [facility]manXqwjwwuVBKTEWHGYE9341-27-26 06:07:00 Test Item Value Reference Range Interpretation Comments Platelet (test code = Platelet) 98 133-450 [facility]manCkbxewkQCGCRJOSHE0852-02-76 06:07:00 Test Item Value Reference Range Interpretation Comments MPV (test code = MPV) 10.1 7.4-10.4 [facility] HospitalPARATHYROID CKBLNEZ5215-76-34 06:07:00 Test Item Value Reference Range Interpretation Comments Ca Ion WB (test code = Ca Ion WB) 1.18 1.05-1.25 [facility] CampusROID XLSYDOS6925-39-75 06:07:00 Test Item Value Reference Range Interpretation Comments Ca Norm WB (test code = Ca Norm WB) 1.17 1.05-1.25 [place] 808540-09-26 08:30:00 Test Item Value Reference Range Interpretation Comments Glucose Lvl (test code = Glucose Lvl) 257 70-99 [place] 808540-09-26 08:30:00 Test Item Value Reference Range Interpretation Comments BUN (test code = BUN) 16 7-22 [place] 808540-09-26 08:30:00 Test Item Value Reference Range Interpretation Comments Creatinine Lvl (test code = Creatinine 0.75 0.50-1.40 Lvl) [place] 808540-09-26 08:30:00 Test Item Value Reference Range Interpretation Comments Sodium Lvl (test code = Sodium Lvl) 143 135-145 [place] 808540-09-26 08:30:00 Test Item Value Reference Range Interpretation Comments Potassium Lvl (test code = Potassium 4.1 3.5-5.1 Lvl) [place] 808540-09-26 08:30:00 Test Item Value Reference Range Interpretation Comments Chloride Lvl (test code = Chloride Lvl) 111 95-109 [place] 808540-09-26 08:30:00 Test Item Value Reference Range Interpretation Comments CO2 (test code = CO2) 24 24-32 [place] 808540-09-26 08:30:00 Test Item Value Reference Range Interpretation Comments Calcium Lvl (test code = Calcium Lvl) 9.0 8.5-10.5 [facility]2020-09-26 08:30:00 Test Item Value Reference Range Interpretation Comments AGAP (test code = AGAP) 12.1 10.0-20.0 [place] 808540-09-26 08:30:00 Test Item Value Reference Range Interpretation Comments eGFR (test code = eGFR) 80 [facility]2020-09-26 08:30:00 Test Item Value Reference Range Interpretation Comments Magnesium Lvl (test code = Magnesium 1.9 1.8-2.4 Lvl) [place] 808540-09-26 08:30:00 Test Item Value Reference Range Interpretation Comments Phosphorus (test code = Phosphorus) 2.6 2.5-4.5 [place] 085390-09-26 08:30:00 Test Item Value Reference Range Interpretation Comments Fibrinogen Lvl (test code = Fibrinogen 159 230-510 Lvl) [facility]IficdjyAASQVYXFNM4669-67-46 08:30:00 Test Item Value Reference Range Interpretation Comments Segs (test code = Segs) 84.7 45.0-75.0 [facility]manDxehrpqDDCCRDBUZP5117-23-14 08:30:00 Test Item Value Reference Range Interpretation Comments Lymphocytes (test code = Lymphocytes) 10.5 20.0-40.0 [place] 085390-09-26 08:30:00 Test Item Value Reference Range Interpretation Comments Monocytes (test code = Monocytes) 4.5 2.0-12.0 [facility]manWdbmsphQIHLXUJRXX6433-69-24 08:30:00 Test Item Value Reference Range Interpretation Comments Eosinophils (test code = 0.1 See_Comment [A utomated message] The Eosinophils) system which ge nerated this result tra nsmitted reference range : <=4.0. The reference r evelyn was not used to int erpret this result as normal/abnormal . [facility]manKkaquvcCMCCBTISYN6774-62-32 08:30:00 Test Item Value Reference Range Interpretation Comments Basophils (test code = 0.2 See_Comment [Aut omated message] The Basophils) system which ge nerated this result tra nsmitted reference range : <=1.0. The reference r evelyn was not used to int erpret this result as normal/abnormal . [facility]manGvzavgoFUQPYCLOXQ4997-45-68 08:30:00 Test Item Value Reference Range Interpretation Comments Neutrophils # (test code = Neutrophils 15.2 1.5-8.1 #) [facility]manAjqesioYZXZRQNVFL6384-49-19 08:30:00 Test Item Value Reference Range Interpretation Comments Lymphocytes # (test code = Lymphocytes 1.9 1.0-5.5 #) [place] 085390-09-26 08:30:00 Test Item Value Reference Range Interpretation Comments Monocytes # (test code 0.8 See_Comment [Aut omated message] The = Monocytes #) system which generated this result tra nsmitted reference range : <=0.8. The reference r evelyn was not used to int erpret this result as normal/abnormal . [place] 085390-09-26 08:30:00 Test Item Value Reference Range Interpretation Comments Microcyte (test code = 1+ *ABN*(02/25/20 Microcyte) 3:30 AM) [facility]manUwlmdqwBFGJCPYAFC0575-38-45 08:30:00 Test Item Value Reference Range Interpretation Comments WBC (test code = WBC) 17.9 3.7-10.4 [facility]manVjlzefiWTXZMXXYZZ6523-12-87 08:30:00 Test Item Value Reference Range Interpretation Comments RBC (test code = RBC) 3.96 4.20-5.40 [place] 085390-09-26 08:30:00 Test Item Value Reference Range Interpretation Comments Hgb (test code = Hgb) 9.6 12.0-16.0 [facility]manGsygemgWJQEJXLFFX5505-22-91 08:30:00 Test Item Value Reference Range Interpretation Comments Hct (test code = Hct) 31.0 36.0-48.0 [facility]manHmnwqktIPHDDVVPPQ6680-13-09 08:30:00 Test Item Value Reference Range Interpretation Comments MCV (test code = MCV) 78.3 80.0-98.0 [facility]manVcgfdoyRTMFXYSEZV7264-76-26 08:30:00 Test Item Value Reference Range Interpretation Comments MCH (test code = MCH) 24.3 pg 27.0-31.0 [facility]manPwljiolVRMNZKVIHE8782-43-70 08:30:00 Test Item Value Reference Range Interpretation Comments MCHC (test code = MCHC) 31.0 32.0-36.0 [facility]manQhnhrooRTYKQSGOGN0292-49-30 08:30:00 Test Item Value Reference Range Interpretation Comments RDW (test code = RDW) 19.5 11.5-14.5 [facility]manBbjeatpFRWDBJXKMH6499-05-33 08:30:00 Test Item Value Reference Range Interpretation Comments Platelet (test code = Platelet) 94 133-450 [facility]WzagbhrOPBYNBJHXB8167-08-31 08:30:00 Test Item Value Reference Range Interpretation Comments MPV (test code = MPV) 9.6 7.4-10.4 [facility] HospitalPARATHYROID SFOFQKN5843-32-80 08:30:00 Test Item Value Reference Range Interpretation Comments Ca Ion WB (test code = Ca Ion WB) 1.17 1.05-1.25 [facility] CampusROID BRWBEML0978-68-95 08:30:00 Test Item Value Reference Range Interpretation Comments Ca Norm WB (test code = Ca Norm WB) 1.17 1.05-1.25 [facility] Ka[id number] 21:43:00 Test Item Value Reference Range Interpretation Comments Heparin Ab(SRIDEVI) Negative 5(02/24/20 4:43 (test code = Heparin PM) Ab(SRIDEVI)) [facility]bxuqxkRLCCLJCCHI4795-81-01 21:43:00 Test Item Value Reference Range Interpretation Comments Pat Od Value (test code = Pat Od 0.064 1 Value) [facility]manFftfgtpQZIZAJCDWT0385-45-84 21:43:00 Test Item Value Reference Range Interpretation Comments Pos CO Value (test code = Pos CO 0.400 1 Value) [facility]manYjydkluRMABOUDMGL7443-63-36 06:06:00 Test Item Value Reference Range Interpretation Comments Basophils # (test code 0.1 See_Comment [Aut omated message] The = Basophils #) system which generated this result tra nsmitted reference range : <=0.2. The reference r evelyn was not used to int erpret this result as normal/abnormal . [facility]manNpvvungZGMVFAAUDC7864-32-45 06:25:00 Test Item Value Reference Range Interpretation Comments Fibrinogen Lvl (test code = Fibrinogen 175 230-510 Lvl) [facility] HospitalCARDIKARMANOS [facility] [id number] 15:43:00 Test Item Value Reference Range Interpretation Comments BNP (test code = BNP) 73 [facility]manLrmdqqtKYPLVOHDKA3639-07-18 15:43:00 Test Item Value Reference Range Interpretation Comments Anisocyte (test code = 1+ *ABN*(02/22/20 Anisocyte) 10:43 AM) [facility]aufmanVroxyshXJCELFZSWK2383-54-08 15:43:00 Test Item Value Reference Range Interpretation Comments Hypochrom (test code = 1+ (02/22/20 10:43 Hypochrom) AM) [facility]manHzscqicBNAQUNQENY5520-04-25 15:43:00 Test Item Value Reference Range Interpretation Comments Eosinophils # (test code 0.2 See_Comment [A utomated message] The = Eosinophils #) system whic h generated this result tra nsmitted reference range : <=0.5. The reference r evelyn was not used to int erpret this result as normal/abnormal . [facility]aufmanSqiijxvXZOQLCOSWR7187-44-22 15:43:00 Test Item Value Reference Range Interpretation Comments Basophils # (test code 0.2 See_Comment [Aut omated message] The = Basophils #) system which generated this result tra nsmitted reference range : <=0.2. The reference r evelyn was not used to int erpret this result as normal/abnormal . [facility] [id number] 08:57:00 Test Item Value Reference Range Interpretation Comments Lactic Acid Lvl (test code = Lactic 1.7 0.5-2.2 Acid Lvl) [facility]manIcthrmtVIQHQYMMTJ4191-31-61 08:57:00 Test Item Value Reference Range Interpretation Comments Eosinophils # (test code 0.1 See_Comment [A utomated message] The = Eosinophils #) system whic h generated this result tra nsmitted reference range : <=0.5. The reference r evelyn was not used to int erpret this result as normal/abnormal . [facility] HospitalLove[facility] [id number] 04:33:00 Test Item Value Reference Range Interpretation Comments Lactic Acid Lvl (test code = Lactic 3.8 0.5-2.2 Acid Lvl) [facility]RI[facility]:SUSC:PT:ISOLATE:ORDQN:[id number] 04:08:00 Test Item Value Reference Range Interpretation Comments Culture: Urine 10,000 - 50,000 CFU/mL (test code = Enterobacter cloacae . Culture: Urine) 10,000 - 50,000 CFU/mL [facility]:SUSC:PT:ISOLATE:ORDQN:[id number] 04:08:00 Test Item Value Reference Range Interpretation Comments Enterobacter cloacae Enterobacter cloacae (test code = Enterobacter cloacae) [facility] AND [id number] 02:52:00 Test Item Value Reference Range Interpretation Comments UA Color (test code = Light Yellow UA Color) *NA*(02/21/20 9:52 PM) [facility] AND [id number] 02:52:00 Test Item Value Reference Range Interpretation Comments UA Turbidity (test code Slight *ABN*(02/21/20 = UA Turbidity) 9:52 PM) [facility] AND [id number] 02:52:00 Test Item Value Reference Range Interpretation Comments UA Spec Grav (test code = UA Spec 1.015 1 Grav) [facility] AND [id number] 02:52:00 Test Item Value Reference Range Interpretation Comments UA pH (test code = UA pH) 5.0 1 5.0-8.0 [facility] AND [id number] 02:52:00 Test Item Value Reference Range Interpretation Comments UA Protein (test code = UA Negative mg/dL Protein) [facility] AND [id number] 02:52:00 Test Item Value Reference Range Interpretation Comments UA Glucose (test code = UA Glucose) 500 mg/dL [facility] AND [id number] 02:52:00 Test Item Value Reference Range Interpretation Comments UA Ketones (test code = UA Negative mg/dL Ketones) [facility] AND [id number] 02:52:00 Test Item Value Reference Range Interpretation Comments UA Bili (test code = Negative *NA*(02/21/20 UA Bili) 9:52 PM) [facility] AND [id number] 02:52:00 Test Item Value Reference Range Interpretation Comments UA Blood (test code = Negative (02/21/20 9:52 UA Blood) PM) [facility] AND [id number] 02:52:00 Test Item Value Reference Range Interpretation Comments UA Urobilinogen (test code = UA no gt 0.1-1.0 Urobilinogen) [facility] AND [id number] 02:52:00 Test Item Value Reference Range Interpretation Comments UA Nitrite (test code Positive *ABN*(02/21/20 = UA Nitrite) 9:52 PM) [facility] AND [id number] 02:52:00 Test Item Value Reference Range Interpretation Comments UA Leuk Est (test code Trace *ABN*(02/21/20 = UA Leuk Est) 9:52 PM) [facility] AND [id number] 02:52:00 Test Item Value Reference Range Interpretation Comments UA Sq Epi (test code = UA Sq Occasional /LPF Epi) [facility] AND [id number] 02:52:00 Test Item Value Reference Range Interpretation Comments UA WBC (test code = 16 See_Comment [Automa porsche message] The UA WBC) system which ge nerated this result transmit porsche reference range : <=5. The reference range was not used to interpr et this result as alexia l/abnormal. [facility] AND [id number] 02:52:00 Test Item Value Reference Range Interpretation Comments UA RBC (test code = 2 See_Comment [Automa porsche message] The UA RBC) system which ge nerated this result transmit porsche reference range : <=2. The reference range was not used to interpr et this result as alexia l/abnormal. [facility] [id number] 02:52:00 Test Item Value Reference Range Interpretation Comments UA Bacteria (test code = UA Occasional /HPF Bacteria) [facility]ann[facility] AND [id number] 02:52:00 Test Item Value Reference Range Interpretation Comments UA Mucus (test code = UA Mucus) Few /LPF [facility]ann[facility] AND [id number] 02:52:00 Test Item Value Reference Range Interpretation Comments UA Hyal Cast (test 3 See_Comment [Automat ed message] The code = UA Hyal Cast) system which generated this result transmit porsche reference range : <=2. The reference range was not used to interpr et this result as alexia l/abnormal. [facility] HospitalLove[facility] [id number] 00:49:00 Test Item Value Reference Range Interpretation Comments Lactic Acid Lvl (test code = Lactic 2.9 0.5-2.2 Acid Lvl) [facility] HospitalLove[facility] [id number] 00:49:00 Test Item Value Reference Range Interpretation Comments Procalcitonin Lvl <0.05 ng/mL See_Comment [Automate d message] (test code = The system whic h Procalcitonin Lvl) generated this result transmit porsche reference range : <=0.10. The reference range was not used to interpret this result as normal/abnormal . [facility] HospitalSrxqrzoXOYYNBMWGH4026-04-07 08:21:00 Test Item Value Reference Range Interpretation Comments Fibrinogen Lvl (test code = Fibrinogen 158 230-510 Lvl) [facility]manXrqattjAFONPKANKM1597-43-16 08:21:00 Test Item Value Reference Range Interpretation Comments PT (test code = PT) 14.2 s 12.0-14.7 [facility]aufmanNinoqosDXYWXVMNUR1305-62-67 08:21:00 Test Item Value Reference Range Interpretation Comments INR (test code = INR) 1.10 1 0.85-1.17 [facility] HospitalUtorgweUFAKWGADII0118-77-48 08:21:00 Test Item Value Reference Range Interpretation Comments PTT (test code = PTT) 43.0 s 22.9-35.8 [facility] HospitalHusjnadEIKOYOKVSL7432-95-08 08:21:00 Test Item Value Reference Range Interpretation Comments Fibrinogen Lvl (test code = Fibrinogen 158 230-510 Lvl) [facility] [id number] 14:31:00 Test Item Value Reference Range Interpretation Comments ABO/Rh (test code = ABO/Rh) O POS [facility] [id number] 14:31:00 Test Item Value Reference Range Interpretation Comments Antibody Scrn (test Negative (02/19/20 9:31 code = Antibody Scrn) AM) [facility] [id number] 14:22:00 Test Item Value Reference Range Interpretation Comments Glucose Lvl (test code = Glucose Lvl) 102 70-99 [facility] [id number] 14:22:00 Test Item Value Reference Range Interpretation Comments BUN (test code = BUN) 15 7-22 [facility]ale[facility] [id number] 14:22:00 Test Item Value Reference Range Interpretation Comments Creatinine Lvl (test code = Creatinine 0.67 0.50-1.40 Lvl) [facility] [id number] 14:22:00 Test Item Value Reference Range Interpretation Comments Sodium Lvl (test code = Sodium Lvl) 144 135-145 [facility] [id number] 14:22:00 Test Item Value Reference Range Interpretation Comments Potassium Lvl (test code = Potassium 3.6 3.5-5.1 Lvl) [facility] [id number] 14:22:00 Test Item Value Reference Range Interpretation Comments Chloride Lvl (test code = Chloride Lvl) 110 95-109 [facility] [id number] 14:22:00 Test Item Value Reference Range Interpretation Comments CO2 (test code = CO2) 29 24-32 [facility] [id number] 14:22:00 Test Item Value Reference Range Interpretation Comments Calcium Lvl (test code = Calcium Lvl) 8.4 8.5-10.5 [place] [id number] 14:22:00 Test Item Value Reference Range Interpretation Comments AGAP (test code = AGAP) 8.6 10.0-20.0 [place] [id number] 14:22:00 Test Item Value Reference Range Interpretation Comments eGFR (test code = eGFR) 87 [place] [id number] 14:22:00 Test Item Value Reference Range Interpretation Comments Magnesium Lvl (test code = Magnesium 1.8 1.8-2.4 Lvl) [place] [id number] 14:22:00 Test Item Value Reference Range Interpretation Comments Phosphorus (test code = Phosphorus) 2.5 2.5-4.5 [place] [address]-09-20 14:22:00 Test Item Value Reference Range Interpretation Comments PT (test code = PT) 14.2 s 12.0-14.7 [place] [address]-09-20 14:22:00 Test Item Value Reference Range Interpretation Comments INR (test code = INR) 1.10 1 0.85-1.17 [place] [address]-09-20 14:22:00 Test Item Value Reference Range Interpretation Comments PTT (test code = PTT) 37.8 s 22.9-35.8 [place] [address]-09-20 14:22:00 Test Item Value Reference Range Interpretation Comments Fibrinogen Lvl (test code = Fibrinogen 167 230-510 Lvl) [place] 085390-09-20 14:22:00 Test Item Value Reference Range Interpretation Comments D-Dimer (test code = D-Dimer) 0.96 [place] [address]-09-20 14:22:00 Test Item Value Reference Range Interpretation Comments Thrombin Time (test code = Thrombin 25.6 s 15.0-21.2 Time) [place] [address]-09-20 14:22:00 Test Item Value Reference Range Interpretation Comments Fibrinogen Lvl (test code = Fibrinogen 180 230-510 Lvl) [place] 085390-09-20 14:22:00 Test Item Value Reference Range Interpretation Comments PT (test code = PT) 14.4 s 12.0-14.7 [place] [address]-09-20 14:22:00 Test Item Value Reference Range Interpretation Comments INR (test code = INR) 1.11 1 0.85-1.17 [facility]manHwhrjpsIOPBKVRTNW4072-10-87 14:22:00 Test Item Value Reference Range Interpretation Comments PTT (test code = PTT) 37.1 s 22.9-35.8 [facility]m[id number] 14:22:00 Test Item Value Reference Range Interpretation Comments WBC (test code = WBC) 18.9 3.7-10.4 [facility]aufmanIqytacaANBEBPIVIL0409-14-12 14:22:00 Test Item Value Reference Range Interpretation Comments RBC (test code = RBC) 4.69 4.20-5.40 [id number] 14:22:00 Test Item Value Reference Range Interpretation Comments Hgb (test code = Hgb) 11.2 12.0-16.0 [facility]aufmanZgnqvpjHSAPHPKQYS8805-84-35 14:22:00 Test Item Value Reference Range Interpretation Comments Hct (test code = Hct) 37.1 36.0-48.0 [facility]manPnxolygGJQCHVFRXA0805-41-19 14:22:00 Test Item Value Reference Range Interpretation Comments MCV (test code = MCV) 79.1 80.0-98.0 [facility]aufmanRcotiikMIJKZOSSLU6658-97-77 14:22:00 Test Item Value Reference Range Interpretation Comments MCH (test code = MCH) 23.8 pg 27.0-31.0 [facility]manJyvxhgdJXXULEFCCM4686-24-60 14:22:00 Test Item Value Reference Range Interpretation Comments MCHC (test code = MCHC) 30.1 32.0-36.0 [facility]aufmanBxxqqtqVIFHMCWKIN0318-51-19 14:22:00 Test Item Value Reference Range Interpretation Comments RDW (test code = RDW) 18.7 11.5-14.5 [facility]aufmanDwtltybLACDCVQVHO8797-14-79 14:22:00 Test Item Value Reference Range Interpretation Comments Platelet (test code = Platelet) 134 133-450 [facility]aufmanGysregxHKGLNOCVFE1114-39-70 14:22:00 Test Item Value Reference Range Interpretation Comments MPV (test code = MPV) 9.7 7.4-10.4 [facility]aufmanHbcveqeYTXWLBEYBX5669-68-42 14:22:00 Test Item Value Reference Range Interpretation Comments Segs (test code = Segs) 61.0 45.0-75.0 [place] 085390-09-20 14:22:00 Test Item Value Reference Range Interpretation Comments Lymphocytes (test code = Lymphocytes) 30.5 20.0-40.0 [place] 085390-09-20 14:22:00 Test Item Value Reference Range Interpretation Comments Monocytes (test code = Monocytes) 7.1 2.0-12.0 [place] 085390-09-20 14:22:00 Test Item Value Reference Range Interpretation Comments Eosinophils (test code = 0.7 See_Comment [A utomated message] The Eosinophils) system which ge nerated this result tra nsmitted reference range : <=4.0. The reference r evelyn was not used to int erpret this result as normal/abnormal . [place] 085390-09-20 14:22:00 Test Item Value Reference Range Interpretation Comments Basophils (test code = 0.7 See_Comment [Aut omated message] The Basophils) system which ge nerated this result tra nsmitted reference range : <=1.0. The reference r evelyn was not used to int erpret this result as normal/abnormal . [facility]manJbvreklXYMDQOCWAL0609-73-94 14:22:00 Test Item Value Reference Range Interpretation Comments Neutrophils # (test code = Neutrophils 11.5 1.5-8.1 #) [facility]manTzxwhplNEQMHVBNEB6329-65-01 14:22:00 Test Item Value Reference Range Interpretation Comments Lymphocytes # (test code = Lymphocytes 5.8 1.0-5.5 #) [facility]aufmanKrdvuoeITVHOVAUXL3756-27-55 14:22:00 Test Item Value Reference Range Interpretation Comments Monocytes # (test code 1.3 See_Comment [Aut omated message] The = Monocytes #) system which generated this result tra nsmitted reference range : <=0.8. The reference r evelyn was not used to int erpret this result as normal/abnormal . [place] 085390-09-20 14:22:00 Test Item Value Reference Range Interpretation Comments Eosinophils # (test code 0.1 See_Comment [A utomated message] The = Eosinophils #) system whic h generated this result tra nsmitted reference range : <=0.5. The reference r evelyn was not used to int erpret this result as normal/abnormal . [place] 085390-09-20 14:22:00 Test Item Value Reference Range Interpretation Comments Basophils # (test code 0.1 See_Comment [Aut omated message] The = Basophils #) system which generated this result tra nsmitted reference range : <=0.2. The reference r evelyn was not used to int erpret this result as normal/abnormal . [facility]RO[facility] [id number] 14:22:00 Test Item Value Reference Range Interpretation Comments Ca Ion WB (test code = Ca Ion WB) 1.11 1.05-1.25 [facility] CampusRO[facility] [id number] 14:22:00 Test Item Value Reference Range Interpretation Comments Ca Norm WB (test code = Ca Norm WB) 1.12 1.05-1.25 [facility]2020-09-19 09:08:00 Test Item Value Reference Range Interpretation Comments Phosphorus (test code = Phosphorus) 3.5 2.5-4.5 [facility] HospitalLove[facility] [id number] 09:08:00 Test Item Value Reference Range Interpretation Comments Magnesium Lvl (test code = Magnesium 1.6 1.8-2.4 Lvl) [facility]2020-09-19 09:08:00 Test Item Value Reference Range Interpretation Comments Glucose Lvl (test code = Glucose Lvl) 210 70-99 [facility]2020-09-19 09:08:00 Test Item Value Reference Range Interpretation Comments BUN (test code = BUN) 12 7-22 [facility]2020-09-19 09:08:00 Test Item Value Reference Range Interpretation Comments Creatinine Lvl (test code = Creatinine 0.67 0.50-1.40 Lvl) [facility]2020-09-19 09:08:00 Test Item Value Reference Range Interpretation Comments Sodium Lvl (test code = Sodium Lvl) 141 135-145 [facility] [id number] 09:08:00 Test Item Value Reference Range Interpretation Comments Potassium Lvl (test code = Potassium 3.3 3.5-5.1 Lvl) [facility]aleCeltic Therapeutics HoldingsCRITICAL ACCESS [id number] 09:08:00 Test Item Value Reference Range Interpretation Comments Chloride Lvl (test code = Chloride Lvl) 106 95-109 [facility]ale[facility] [id number] 09:08:00 Test Item Value Reference Range Interpretation Comments CO2 (test code = CO2) 28 24-32 [facility]2020-09-19 09:08:00 Test Item Value Reference Range Interpretation Comments Calcium Lvl (test code = Calcium Lvl) 8.7 8.5-10.5 [place] 808540-09-19 09:08:00 Test Item Value Reference Range Interpretation Comments AGAP (test code = AGAP) 10.3 10.0-20.0 [facility]2020-09-19 09:08:00 Test Item Value Reference Range Interpretation Comments eGFR (test code = eGFR) 87 [facility]manQpeqfekAPPLJETQNZ1194-16-19 09:08:00 Test Item Value Reference Range Interpretation Comments PT (test code = PT) 17.5 s 12.0-14.7 [facility]aufmanXinxgtoVXARZINMTL3752-23-05 09:08:00 Test Item Value Reference Range Interpretation Comments INR (test code = INR) 1.42 1 0.85-1.17 [facility]aufmanFxoxcmeBNWDDXDFFR1206-74-14 09:08:00 Test Item Value Reference Range Interpretation Comments PTT (test code = PTT) 82.9 s 22.9-35.8 [facility]aufmanDpwqpjwEUEOLQXIRJ1168-41-00 09:08:00 Test Item Value Reference Range Interpretation Comments D-Dimer (test code = D-Dimer) 0.68 [facility]manOboknvnSBUNLUPTMP3779-60-11 09:08:00 Test Item Value Reference Range Interpretation Comments Fibrinogen Lvl (test code = Fibrinogen 108 230-510 Lvl) [facility]manAnnnjmkMXCAZNMYWZ3677-17-10 09:08:00 Test Item Value Reference Range Interpretation Comments Thrombin Time (test code = >100 seconds 15.0-21.2 Thrombin Time) [place] 085390-09-19 09:08:00 Test Item Value Reference Range Interpretation Comments WBC (test code = WBC) 16.3 3.7-10.4 [facility]aufmanCfjvkyiGWYZVJBOTJ9802-72-51 09:08:00 Test Item Value Reference Range Interpretation Comments RBC (test code = RBC) 4.72 4.20-5.40 [facility]aufmanLcyshnrTHVDVUWJLH7839-36-12 09:08:00 Test Item Value Reference Range Interpretation Comments Hgb (test code = Hgb) 11.4 12.0-16.0 [place] 085390-09-19 09:08:00 Test Item Value Reference Range Interpretation Comments Hct (test code = Hct) 37.0 36.0-48.0 [facility]aufmanDlhaqppBWJIVNTGDM7103-83-28 09:08:00 Test Item Value Reference Range Interpretation Comments MCV (test code = MCV) 78.4 80.0-98.0 [facility]aufmanNbpcdotKXFDKKPRNJ7013-56-90 09:08:00 Test Item Value Reference Range Interpretation Comments MCH (test code = MCH) 24.1 pg 27.0-31.0 [facility]manYsdhttsVXXMBJOOFG3773-41-62 09:08:00 Test Item Value Reference Range Interpretation Comments MCHC (test code = MCHC) 30.7 32.0-36.0 [facility]manMzzsppcNPULVSXDEQ0361-42-79 09:08:00 Test Item Value Reference Range Interpretation Comments RDW (test code = RDW) 18.3 11.5-14.5 [facility]aufmanWfqijjkZZVZZGYNEM1503-02-77 09:08:00 Test Item Value Reference Range Interpretation Comments Platelet (test code = Platelet) 151 133-450 [facility]manYstohaaIIFILEREZT4972-49-13 09:08:00 Test Item Value Reference Range Interpretation Comments MPV (test code = MPV) 9.7 7.4-10.4 [facility]manOxbrcfnGKSPRIYHFO5911-10-35 09:08:00 Test Item Value Reference Range Interpretation Comments Segs (test code = Segs) 66.2 45.0-75.0 [facility]aufmanYxikyhiVIRMEBJUYV7265-96-87 09:08:00 Test Item Value Reference Range Interpretation Comments Lymphocytes (test code = Lymphocytes) 23.2 20.0-40.0 [facility]manAgpmzkyJMQRHNSHJT0779-52-20 09:08:00 Test Item Value Reference Range Interpretation Comments Monocytes (test code = Monocytes) 9.3 2.0-12.0 [place] 085390-09-19 09:08:00 Test Item Value Reference Range Interpretation Comments Eosinophils (test code = 0.8 See_Comment [A utomated message] The Eosinophils) system which ge nerated this result tra nsmitted reference range : <=4.0. The reference r evelyn was not used to int erpret this result as normal/abnormal . [facility]aufmanOqkontoNTIEWVQBUH2339-73-30 09:08:00 Test Item Value Reference Range Interpretation Comments Basophils (test code = 0.5 See_Comment [Aut omated message] The Basophils) system which ge nerated this result tra nsmitted reference range : <=1.0. The reference r evelyn was not used to int erpret this result as normal/abnormal . [facility]aufmanBphkbsiRKRWRWJBFH9734-61-71 09:08:00 Test Item Value Reference Range Interpretation Comments Neutrophils # (test code = Neutrophils 10.8 1.5-8.1 #) [facility]manXqnqeygSTBXNQAJWT8095-19-95 09:08:00 Test Item Value Reference Range Interpretation Comments Lymphocytes # (test code = Lymphocytes 3.8 1.0-5.5 #) [facility]manPgspciwYHDNCQUUSI4791-70-70 09:08:00 Test Item Value Reference Range Interpretation Comments Monocytes # (test code 1.5 See_Comment [Aut omated message] The = Monocytes #) system which generated this result tra nsmitted reference range : <=0.8. The reference r evelyn was not used to int erpret this result as normal/abnormal . [facility]aufmanBcvjfvfBDYGUGGVYN7567-34-13 09:08:00 Test Item Value Reference Range Interpretation Comments Eosinophils # (test code 0.1 See_Comment [A utomated message] The = Eosinophils #) system whic h generated this result tra nsmitted reference range : <=0.5. The reference r evelyn was not used to int erpret this result as normal/abnormal . [facility]aufmanHpxqgheSHGXWCUEIF7585-26-97 09:08:00 Test Item Value Reference Range Interpretation Comments Basophils # (test code 0.1 See_Comment [Aut omated message] The = Basophils #) system which generated this result tra nsmitted reference range : <=0.2. The reference r evelyn was not used to int erpret this result as normal/abnormal . [facility]manSzkvpskITTGDVLCAX1212-10-78 09:08:00 Test Item Value Reference Range Interpretation Comments Microcyte (test code = 1+ *ABN*(02/18/20 Microcyte) 4:08 AM) [facility]2020-09-19 09:08:00 Test Item Value Reference Range Interpretation Comments Ca Ion WB (test code = Ca Ion WB) 1.13 1.05-1.25 [facility] [facility]:08:00 Test Item Value Reference Range Interpretation Comments Ca Norm WB (test code = Ca Norm WB) 1.12 1.05-1.25 [id number] 17:25:00 Test Item Value Reference Range Interpretation Comments Coronavirus (COVID-19) Not Detected (02/17/20 BRANDON (test code = 12:25 PM) Coronavirus (COVID-19) BRANDON) [facility] BANK [id number] 17:10:00 Test Item Value Reference Range Interpretation Comments BB Note (test code = Result Note 4(02/17/20 BB Note) 12:10 PM) [facility] BANK [id number] 17:10:00 Test Item Value Reference Range Interpretation Comments ABO/Rh (test code = ABO/Rh) O POS [facility] BANK [id number] 17:10:00 Test Item Value Reference Range Interpretation Comments Antibody Scrn (test Positive (02/17/20 code = Antibody Scrn) 12:10 PM) [facility] BANK [id number] 17:10:00 Test Item Value Reference Range Interpretation Comments AB Int (test code = AB Int) Anti-D [facility] BANK [id number] 17:10:00 Test Item Value Reference Range Interpretation Comments Path AB (test code Blood Bank Physician = Path AB) Service The patient is a 75 y/o female with history of dementia, meningioma s/p resection 10 years ago with VPS, type II diabetes mellitus, HTN, HLD, CAD, hypothyroidism, JD, seropositive myasthenia gravis (anti-striated muscle antibodies), and recent spinal surgery around 3 weeks who presented as a direct transfer from [facility] due to concerns of MG exacerbation. Her historical blood type was documented as O-negative from 01/24/2011 through 08/19/2011, with negative antibody screen until 08/19/2011 when anti-K and anti-big-S red cell alloantibodies were identified. 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 The patient's transfusion history includes transfusion of two O-negative RBCs on 01/24/2011 and two O-positive RBCs on 12/05/2019. An anti-D is detected in this patient's serum. This antibody is directed against D antigen of the "Rh" blood group system. It is typically IgG in nature and forms in response to RBC sensitization via prior transfusion or . Anti-D is considered a [...] control is negative). Should RBC transfusion be necessary, crossmatch-compatible red cells negative for the D, K, and big-S antigens will be issued. Some difficulty in finding appropriate red cell units is anticipated since only 6.1% of the donor population lack the D, K, and big-S antigens; thus, the Blood Bank should be notified ahead of time if transfusion is anticipated. The patient s electronic medical record has been reviewed for relevant information. I have reviewed the test results and concur with the resident, Dr. Doug Warner's, interpretation. CPT: 41464-HL [facility]aleCeltic Therapeutics HoldingsCARDIAC [id number] 17:10:00 Test Item Value Reference Range Interpretation Comments Total CK (test code = Total CK) 25 12-191 [facility] [id number] 17:10:00 Test Item Value Reference Range Interpretation Comments Phosphorus (test code = Phosphorus) 3.0 2.5-4.5 [facility] [id number] 17:10:00 Test Item Value Reference Range Interpretation Comments Glucose Lvl (test code = Glucose Lvl) 215 70-99 [facility]aleNavendis [id number] 17:10:00 Test Item Value Reference Range Interpretation Comments BUN (test code = BUN) 11 7-22 [facility] [id number] 17:10:00 Test Item Value Reference Range Interpretation Comments Creatinine Lvl (test code = Creatinine 0.68 0.50-1.40 Lvl) [facility] [id number] 17:10:00 Test Item Value Reference Range Interpretation Comments Sodium Lvl (test code = Sodium Lvl) 135 135-145 [facility] [id number] 17:10:00 Test Item Value Reference Range Interpretation Comments Potassium Lvl (test code = Potassium 3.4 3.5-5.1 Lvl) [place] [id number] 17:10:00 Test Item Value Reference Range Interpretation Comments Chloride Lvl (test code = Chloride Lvl) 101 95-109 [place] [id number] 17:10:00 Test Item Value Reference Range Interpretation Comments CO2 (test code = CO2) 31 24-32 [place] [id number] 17:10:00 Test Item Value Reference Range Interpretation Comments Calcium Lvl (test code = Calcium Lvl) 8.4 8.5-10.5 [place] [id number] 17:10:00 Test Item Value Reference Range Interpretation Comments AGAP (test code = AGAP) 6.4 10.0-20.0 [place] [id number] 17:10:00 Test Item Value Reference Range Interpretation Comments eGFR (test code = eGFR) 87 [place] 808540-09-18 17:10:00 Test Item Value Reference Range Interpretation Comments Procalcitonin Lvl (test no gt See_Comment [Au tomated message] code = Procalcitonin Lvl) Th e system which generated this result transmitted ref erence range: <=0.10. The reference range was not used to interpr et this result as normal/abnormal . [facility]2020-09-18 17:10:00 Test Item Value Reference Range Interpretation Comments Lactic Acid Lvl (test code = Lactic 1.6 0.5-2.2 Acid Lvl) [place] [id number] 17:10:00 Test Item Value Reference Range Interpretation Comments WBC (test code = WBC) 16.0 3.7-10.4 [place] [id number] 17:10:00 Test Item Value Reference Range Interpretation Comments RBC (test code = RBC) 5.23 4.20-5.40 [place] [id number] 17:10:00 Test Item Value Reference Range Interpretation Comments Hgb (test code = Hgb) 12.7 12.0-16.0 [place] [address]-09-18 17:10:00 Test Item Value Reference Range Interpretation Comments Hct (test code = Hct) 41.4 36.0-48.0 [id number] 17:10:00 Test Item Value Reference Range Interpretation Comments MCV (test code = MCV) 79.1 80.0-98.0 [id number] 17:10:00 Test Item Value Reference Range Interpretation Comments MCH (test code = MCH) 24.4 pg 27.0-31.0 [facility]manUytomzdVEHPKTSIKQ5576-37-03 17:10:00 Test Item Value Reference Range Interpretation Comments MCHC (test code = MCHC) 30.8 32.0-36.0 [id number] 17:10:00 Test Item Value Reference Range Interpretation Comments RDW (test code = RDW) 18.3 11.5-14.5 [id number] 17:10:00 Test Item Value Reference Range Interpretation Comments Platelet (test code = Platelet) 161 133-450 [facility]m[id number] 17:10:00 Test Item Value Reference Range Interpretation Comments MPV (test code = MPV) 10.1 7.4-10.4 [place] 085390-09-18 17:10:00 Test Item Value Reference Range Interpretation Comments Segs (test code = Segs) 84.7 45.0-75.0 [facility]manBqxwmqiDDQSYWQFXM9773-51-16 17:10:00 Test Item Value Reference Range Interpretation Comments Lymphocytes (test code = Lymphocytes) 9.3 20.0-40.0 [facility]manUqkizwdWAXRNCMNEN7824-12-32 17:10:00 Test Item Value Reference Range Interpretation Comments Monocytes (test code = Monocytes) 5.0 2.0-12.0 [place] [address]-09-18 17:10:00 Test Item Value Reference Range Interpretation Comments Eosinophils (test code = 0.5 See_Comment [A utomated message] The Eosinophils) system which ge nerated this result tra nsmitted reference range : <=4.0. The reference r evelyn was not used to int erpret this result as normal/abnormal . [id number] 17:10:00 Test Item Value Reference Range Interpretation Comments Basophils (test code = 0.5 See_Comment [Aut omated message] The Basophils) system which ge nerated this result tra nsmitted reference range : <=1.0. The reference r evelyn was not used to int erpret this result as normal/abnormal . [facility]EwvvvbqHALWAAVIKR0578-11-94 17:10:00 Test Item Value Reference Range Interpretation Comments Neutrophils # (test code = Neutrophils 13.6 1.5-8.1 #) [facility] HospitalKvfmixnIRYTNERQSP4409-60-01 17:10:00 Test Item Value Reference Range Interpretation Comments Lymphocytes # (test code = Lymphocytes 1.5 1.0-5.5 #) [facility] HospitalWxqvynhMPQXODGGOY2623-17-92 17:10:00 Test Item Value Reference Range Interpretation Comments Monocytes # (test code 0.8 See_Comment [Aut omated message] The = Monocytes #) system which generated this result tra nsmitted reference range : <=0.8. The reference r evelyn was not used to int erpret this result as normal/abnormal . [id number] 17:10:00 Test Item Value Reference Range Interpretation Comments Basophils # (test code 0.1 See_Comment [Aut omated message] The = Basophils #) system which generated this result tra nsmitted reference range : <=0.2. The reference r evelyn was not used to int erpret this result as normal/abnormal . [facility] Ho[id number] 17:10:00 Test Item Value Reference Range Interpretation Comments Trig (test code = Trig) 156 [facility] [id number] 17:10:00 Test Item Value Reference Range Interpretation Comments Chol (test code = Chol) 154 [facility] [id number] 17:10:00 Test Item Value Reference Range Interpretation Comments HDL (test code = HDL) 54 [facility]aleXrqldlhDQKVPV6775-01-28 17:10:00 Test Item Value Reference Range Interpretation Comments CHD Risk (test code = CHD Risk) 2.85 1 3.90-5.80 [id number] 17:10:00 Test Item Value Reference Range Interpretation Comments LDL (Calculated) (test code = LDL 69 (Calculated)) [facility] [id number] 17:10:00 Test Item Value Reference Range Interpretation Comments VLDL (test code = VLDL) [address] [facility] AND [id number] 03:29:00 Test Item Value Reference Range Interpretation Comments UA Color (test code = Yellow *NA*(02/15/20 UA Color) 10:29 PM) [facility] AND [id number] 03:29:00 Test Item Value Reference Range Interpretation Comments UA Turbidity (test code Marked *ABN*(02/15/20 = UA Turbidity) 10:29 PM) [facility] AND [id number] 03:29:00 Test Item Value Reference Range Interpretation Comments UA Spec Grav (test code = UA Spec 1.015 1 Grav) [facility] AND [id number] 03:29:00 Test Item Value Reference Range Interpretation Comments UA pH (test code = UA pH) 7.0 1 5.0-8.0 [facility] AND [id number] 03:29:00 Test Item Value Reference Range Interpretation Comments UA Protein (test code = UA Negative mg/dL Protein) [facility] AND [id number] 03:29:00 Test Item Value Reference Range Interpretation Comments UA Ketones (test code = UA Negative mg/dL Ketones) [facility] AND [id number] 03:29:00 Test Item Value Reference Range Interpretation Comments UA Bili (test code = Negative *NA*(02/15/20 UA Bili) 10:29 PM) [facility] AND [id number] 03:29:00 Test Item Value Reference Range Interpretation Comments UA Blood (test code = Negative (02/15/20 10:29 UA Blood) PM) [facility] AND [id number] 03:29:00 Test Item Value Reference Range Interpretation Comments UA Urobilinogen (test code = UA no gt 0.1-1.0 Urobilinogen) [facility] AND [id number] 03:29:00 Test Item Value Reference Range Interpretation Comments UA Nitrite (test code Negative (02/15/20 10:29 = UA Nitrite) PM) [facility] [id number] 03:29:00 Test Item Value Reference Range Interpretation Comments UA Leuk Est (test Negative (02/15/20 10:29 code = UA Leuk Est) PM) [facility] AND [id number] 03:29:00 Test Item Value Reference Range Interpretation Comments UA Sq Epi (test code = UA Sq Epi) Few /LPF [facility] [id number] 03:29:00 Test Item Value Reference Range Interpretation Comments UA WBC (test code = 1 See_Comment [Automa porsche message] The UA WBC) system which ge nerated this result transmit porsche reference range : <=5. The reference range was not used to interpr et this result as alexia l/abnormal. [facility] [id number] 03:29:00 Test Item Value Reference Range Interpretation Comments UA RBC (test code = 1 See_Comment [Automa porsche message] The UA RBC) system which ge nerated this result transmit porsche reference range : <=2. The reference range was not used to interpr et this result as alexia l/abnormal. [facility] [id number] 03:29:00 Test Item Value Reference Range Interpretation Comments UA Bacteria (test code = UA Occasional /HPF Bacteria) [facility] AND [id number] 03:29:00 Test Item Value Reference Range Interpretation Comments UA Mucus (test code = UA Mucus) Few /LPF [facility] [id number] 03:29:00 Test Item Value Reference Range Interpretation Comments UA Amorph Jagruti (test code = UA Moderate /HPF Amorph Jagruti) [facility] AND [id number] 03:29:00 Test Item Value Reference Range Interpretation Comments UA Hyal Cast (test 3 See_Comment [Automat ed message] The code = UA Hyal Cast) system which generated this result transmit porsche reference range : <=2. The reference range was not used to interpr et this result as alexia l/abnormal. [facility] [id number] 03:29:00 Test Item Value Reference Range Interpretation Comments UA Glucose (test code = UA Glucose) 150mg/dl [facility]aleNavendis [id number] 02:49:00 Test Item Value Reference Range Interpretation Comments Total Protein (test code = Total 5.8 6.4-8.4 Protein) [facility] HospitalLovejuice [id number] 02:49:00 Test Item Value Reference Range Interpretation Comments Albumin Lvl (test code = Albumin Lvl) 2.4 3.5-5.0 [facility] HospitalLovejuice [id number] 02:49:00 Test Item Value Reference Range Interpretation Comments ALT (test code = ALT) 26 See_Comment [Auto mated message] The system which ge nerated this result transmit porsche reference range : <=65. The reference range was not used to interpr et this result as alexia l/abnormal. [facility] [id number] 02:49:00 Test Item Value Reference Range Interpretation Comments AST (test code = AST) 16 See_Comment [Auto mated message] The system which ge nerated this result transmit porsche reference range : <=37. The reference range was not used to interpr et this result as alexia l/abnormal. [facility] [id number] 02:49:00 Test Item Value Reference Range Interpretation Comments Alk Phos (test code = Alk Phos) 162 39-136 [facility] [id number] 02:49:00 Test Item Value Reference Range Interpretation Comments Bili Total (test code = Bili Total) 0.3 0.2-1.3 [facility] [id number] 02:49:00 Test Item Value Reference Range Interpretation Comments B/C Ratio (test code = B/C Ratio) 25 1 6-25 [facility] [id number] 02:49:00 Test Item Value Reference Range Interpretation Comments Globulin (test code = Globulin) 3.4 2.7-4.2 [facility] [id number] 02:49:00 Test Item Value Reference Range Interpretation Comments A/G Ratio (test code = A/G Ratio) 0.7 1 0.7-1.6 [facility] HospitalPOCT-GLUCOSE [id number] 13:34:00 Test Item Value Reference Range Interpretation Comments POC-GLUCOSE METER 101 mg/dL 70-110 : TESTED A T [facility] 6720 (SpoutAKER) (test code = DriveK [facility], 1538) [address]: Wood Grainer/Techni ras ID = [id number] for LENNOX RAMOS POCT-GLUCOSE [id number] 08:50:00 Test Item Value Reference Range Interpretation Comments POC-GLUCOSE METER 100 mg/dL 70-110 : TESTED A T [facility] 6720 ([employer]) (test code = DriveK [facility], 1538) [address]: Wood Grainer/Techni ras ID = [id number] for LENNOX RAMOS POCT-GLUCOSE [id number] 06:33:00 Test Item Value Reference Range Interpretation Comments POC-GLUCOSE METER 184 mg/dL 70-110 H : TESTED A T [facility] 6720 (BEAKER) (test code = KLEVER Rogers [facility], 1538) [address]: Wood Grainer/Techni ras ID = [id number] for RACHEL MACK CBC W/PLT COUNT & AUTO [id number] 06:31:00 Test Item Value Reference Range Interpretation [...] PERCENT (BEAKER) (test code = 2801) POCT-GLUCOSE [id number] 18:19:00 Test Item Value Reference Range Interpretation Comments POC-GLUCOSE METER 148 mg/dL 70-110 H : TESTED A T [facility] 6720 (BEAKER) (test code = KLEVER SIDHU MD, 1538) [address]: Wood Grainer/Techni ras ID = [id number] for HU NT, MAGGIE URINALYSIS W/ REFLEX URINE [id number] 15:46:00 Test Item Value Reference Range Interpretation [...] = 518) SOURCE(BEAKER) (test code = 2795) Wood Grainer ID - [auto]Wood [employer]er ID - hankPOCT-GLUCOSE [id number] 12:47:00 Test Item Value Reference Range Interpretation Comments POC-GLUCOSE METER 128 mg/dL 70-110 H : TESTED A T [facility] 6720 (BEAKER) (test code = [facility], 1538) [address]: Wood Grainer/Techni ras ID = [id number] for Elizabeth Valladares POCT-GLUCOSE [id number] 12:34:00 Test Item Value Reference Range Interpretation Comments POC-GLUCOSE METER 131 mg/dL 70-110 H : TESTED A T [facility] 6720 (BEAKER) (test code = [facility], 1538) [address]: Wood Grainer/Techni ras ID = [id number] for LENNOX RAMOS FL, ESOPH, SWALLOW FUNCTION, WITH CINE OR [id number] 12:20:00Reason for exam:->dysphagiaFINAL REPORT EXAMINATION: Modified barium [...] MDReport Verified Date/Time: 02/14/2020 12:20:00 Reading Location: [address] Reading Room CBC W/PLT COUNT & AUTO [id number] 04:50:00 Test Item Value Reference Range Interpretation [...] PERCENT (BEAKER) (test code = 2801) POCT-GLUCOSE [id number] 01:00:00 Test Item Value Reference Range Interpretation Comments POC-GLUCOSE METER 261 mg/dL 70-110 H : [facility] ([facility]) (test code = KLEVER Rogers [facility], 1538) [address]: Wood Grainer/Techni ras ID = [id number] for DO RACHEL REDD POCT-GLUCOSE [id number] 17:38:00 Test Item Value Reference Range Interpretation Comments POC-GLUCOSE METER 396 mg/dL 70-110 H : [facility] ([facility]) (test code [facility], = 1538) 19768: Wood Grainer/Techni ras ID = [id number] for TSEG GAI, TSIGHEREDA RAD, CHEST, 2 [id number] 12:51:00Reason for exam:->evaluate position of left chest [...] [place] Verified Date/Time: 02/13/2020 12:51:24 Reading Location: [facility] Radiology Reading Room POCT-GLUCOSE [id number] 08:20:00 Test Item Value Reference Range Interpretation Comments POC-GLUCOSE METER 180 mg/dL 70-110 H : Notified RN/MD: TESTED ([facility]) (test code AT [address] = 1538) [facility], 7[address]: Wood Grainer/Techni ras ID = [id number] for TSEG GAI, TSIGHEREDA POCT-GLUCOSE [id number] 23:11:00 Test Item Value Reference Range Interpretation Comments POC-GLUCOSE METER 254 mg/dL 70-110 H : Notified RN/MD: ([facility]) (test code = TESTED AT [facility] 6720 1538) [facility], [address]: Wood Grainer/Techni ras ID = [id number] for MARIA MEDINA POCT-GLUCOSE [id number] 17:32:00 Test Item Value Reference Range Interpretation Comments POC-GLUCOSE METER 386 mg/dL 70-110 H : Notified RN/MD: TESTED (KATHLEEN) (test code AT [facility] [address] = 1538) [facility], 770 30: Wood Grainer/Techni ras ID = [id number] for LEILA LEDESMA RAD, CHEST, 1 VIEW, NON [id number] 14:59:00Reason for exam:->concern for aspirationShould this be [...] Verified Date/Time: 02/12/2020 14:59:34 Reading Location: [address] Body Reading Room TSH/FREE T4 IF [id number] 13:50:00 Test Item Value Reference Range Interpretation Comments THYROID STIMULATING HORMONE 1.158 uIU/mL 0.350-4.940 (BEAKER) (test code = 772) COMPREHENSIVE METABOLIC [id number] 12:44:00 Test Item Value Reference Range Interpretation [...] S NOT APPLICABLE FOR DIALYSIS PATIEN TS. LACTATE DEHYDROGENASE (LDH)2020-02-12 12:29:00 Test Item Value Reference Range Interpretation Comments LACTATE DEHYDROGENASE 401 U/L 125-220 H Specim en slightly (BEAKER) (test code = hemoly zed 635) CREATINE KINASE (CK)2020-02-12 12:29:00 Test Item Value Reference Range Interpretation Comments CREATINE KINASE TOTAL (BEAKER) (test 47 U/L 29-200 code = 380) VITAMIN [id number] 12:28:00 Test Item Value Reference Range Interpretation Comments VITAMIN B12 (BEAKER) (test code = 486 pg/mL 213-816 774) POCT-GLUCOSE [id number] 12:20:00 Test Item Value Reference Range Interpretation Comments POC-GLUCOSE METER 147 mg/dL 70-110 H : TESTED A T [facility] 6720 (KATHLEEN) (test code CINTHIA [facility], = 1538) [address]: Wood Grainer/Techni ras ID = [id number] for LEILA LEDESMA SARS-COV2/RT-PCR ([facility])2020-02-12 12:08:00 Test Item Value Reference Range Interpretation Comments SARS-COV2/RT-PCR (test Negative Not Detected, Negative, code = 3361337) See external report for linked test SARS-COV-2 PERFORMING LAB [facility] (test code = 4603283) Negative result for this test determines that [...] 564(g) of the Act.Fact Sheet for Healthcare Providers:https://www.Catchoom.Serveron/sites/default/files/product/documents/Fact_Shee m_HK_Tavjuvnxi_Pfty_ARPI-YgS-1.pdfFact Sheet for Healthcare Patients:https://www.Catchoom.Serveron/sites/default/files/product/ documents/Bvms_Gspar_Wndtjnnm_Amja_NCQX-RxC-8.pdfPerforming Laboratory:[facility], [place] [address]KHZA-YVLELYJ METER 2020-02-12 09:52:00 Test Item Value Reference Range Interpretation Comments POC-GLUCOSE METER 74 mg/dL 70-110 : TESTED A T [facility] 6720 (BEAKER) (test code [facility], = 1538) [address]: Wood Grainer/Techni ras ID = [id number] for LEILA LEDESMA CBC W/PLT COUNT & AUTO [id number] 09:04:00 Test Item Value Reference Range Interpretation [...] 0-1 PERCENT (BEAKER) (test code = 2801) [id number] 17:18:00 Test Item Value Reference Range Interpretation Comments Coronavirus (COVID-19) Not Detected (12/20/19 BRANDON (test code = 12:18 PM) Coronavirus (COVID-19) BRANDON) [facility] [employer]ir PharmaceuticalsCARDIAC [id number] 10:06:00 Test Item Value Reference Range Interpretation Comments Troponin-I (test code 0.02 See_Comment [Auto mated message] The = Troponin-I) system which g enerated this result transmit porsche reference range : <=0.40. The reference r evelyn was not used to interpr et this result as alexia l/abnormal. [employer] [id number] 10:06:00 Test Item Value Reference Range Interpretation Comments Glucose Lvl (test code = Glucose Lvl) 145 70-99 [facility] [id number] 10:06:00 Test Item Value Reference Range Interpretation Comments BUN (test code = BUN) 10 7- [facility] [id number] 10:06:00 Test Item Value Reference Range Interpretation Comments Creatinine Lvl (test code = Creatinine 0.64 0.50-1.40 Lvl) [facility] [id number] 10:06:00 Test Item Value Reference Range Interpretation Comments Sodium Lvl (test code = Sodium Lvl) 143 135-145 [facility]2020-07-19 10:06:00 Test Item Value Reference Range Interpretation Comments Potassium Lvl (test code = Potassium 3.9 3.5-5.1 Lvl) [facility]2020-07-19 10:06:00 Test Item Value Reference Range Interpretation Comments Chloride Lvl (test code = Chloride Lvl) 108 95-109 [place] 808540-07-19 10:06:00 Test Item Value Reference Range Interpretation Comments CO2 (test code = CO2) 28 24-32 [facility]2020-07-19 10:06:00 Test Item Value Reference Range Interpretation Comments AGAP (test code = AGAP) 10.9 10.0-20.0 [facility]2020-07-19 10:06:00 Test Item Value Reference Range Interpretation Comments Calcium Lvl (test code = Calcium Lvl) 8.3 8.5-10.5 [facility]2020-07-19 10:06:00 Test Item Value Reference Range Interpretation Comments eGFR (test code = eGFR) 89 [facility]2020-07-19 10:06:00 Test Item Value Reference Range Interpretation Comments Magnesium Lvl (test code = Magnesium 2.1 1.8-2.4 Lvl) [facility]2020-07-19 10:06:00 Test Item Value Reference Range Interpretation Comments Phosphorus (test code = Phosphorus) 3.2 2.5-4.5 [facility]MWKNJWIECP5066[facility] 10:06:00 Test Item Value Reference Range Interpretation Comments WBC (test code = WBC) 9.9 3.7-10.4 [place] 085390-07-19 10:06:00 Test Item Value Reference Range Interpretation Comments RBC (test code = RBC) 3.09 4.20-5.40 [facility]KrgvbgyNVMGCTOTII8489-22-10 10:06:00 Test Item Value Reference Range Interpretation Comments Hgb (test code = Hgb) 9.1 12.0-16.0 [facility]manTxzedgmEIANLMNKCB0661-35-43 10:06:00 Test Item Value Reference Range Interpretation Comments Hct (test code = Hct) 28.9 36.0-48.0 [facility]EdbswguBLZVFGHPHH6647-91-95 10:06:00 Test Item Value Reference Range Interpretation Comments MCV (test code = MCV) 93.7 80.0-98.0 [facility]MtnupmpXVTYZVHIPJ4475-34-98 10:06:00 Test Item Value Reference Range Interpretation Comments MCH (test code = MCH) 29.4 pg 27.0-31.0 [facility]manGlgqsxjMGZDIFKVLR7107-75-97 10:06:00 Test Item Value Reference Range Interpretation Comments MCHC (test code = MCHC) 31.4 32.0-36.0 [facility]manTafvmyjRUDEQZWDZI7773-51-67 10:06:00 Test Item Value Reference Range Interpretation Comments RDW (test code = RDW) 16.7 11.5-14.5 [facility]manGqwpnqgYCNOVITRVE6327-15-62 10:06:00 Test Item Value Reference Range Interpretation Comments Platelet (test code = Platelet) 200 133-450 [facility]JfznzeoSYENDGAXVY1789-49-77 10:06:00 Test Item Value Reference Range Interpretation Comments MPV (test code = MPV) 10.2 7.4-10.4 [facility]manUkmjuceKFKKQSOKUB2171-60-46 10:06:00 Test Item Value Reference Range Interpretation Comments Segs (test code = Segs) 66.2 45.0-75.0 [facility]AopgcdmDVCSEXMXAH3382-26-93 10:06:00 Test Item Value Reference Range Interpretation Comments Lymphocytes (test code = Lymphocytes) 23.0 20.0-40.0 [facility]manNutmsdhTILKCYHMWR4935-80-07 10:06:00 Test Item Value Reference Range Interpretation Comments Monocytes (test code = Monocytes) 8.2 2.0-12.0 [facility]manEruqmrlOAMBJVHBBS6614-23-41 10:06:00 Test Item Value Reference Range Interpretation Comments Eosinophils (test code = 1.2 See_Comment [A utomated message] The Eosinophils) system which ge nerated this result tra nsmitted reference range : <=4.0. The reference r evelyn was not used to int erpret this result as normal/abnormal . [facility]manQtftjeqZKAPBQIUYF7293-04-47 10:06:00 Test Item Value Reference Range Interpretation Comments Basophils (test code = 1.4 See_Comment [Aut omated message] The Basophils) system which ge nerated this result tra nsmitted reference range : <=1.0. The reference r evelyn was not used to int erpret this result as normal/abnormal . [facility]manXlmyzgnEBWEDDNAHE4745-08-33 10:06:00 Test Item Value Reference Range Interpretation Comments Neutrophils # (test code = Neutrophils 6.5 1.5-8.1 #) [facility]manBignfwaNKBMVFZUDU7907-36-56 10:06:00 Test Item Value Reference Range Interpretation Comments Lymphocytes # (test code = Lymphocytes 2.3 1.0-5.5 #) [facility]manHuvqruaAAFUEGZBNC7157-89-66 10:06:00 Test Item Value Reference Range Interpretation Comments Monocytes # (test code 0.8 See_Comment [Aut omated message] The = Monocytes #) system which generated this result tra nsmitted reference range : <=0.8. The reference r evelyn was not used to int erpret this result as normal/abnormal . [facility]manMvevoorZMKIXQMNES7906-24-19 10:06:00 Test Item Value Reference Range Interpretation Comments Eosinophils # (test code 0.1 See_Comment [A utomated message] The = Eosinophils #) system whic h generated this result tra nsmitted reference range : <=0.5. The reference r evelyn was not used to int erpret this result as normal/abnormal . [facility]manKjooxoyTGFDWQOHII8787-18-60 10:06:00 Test Item Value Reference Range Interpretation Comments Basophils # (test code 0.1 See_Comment [Aut omated message] The = Basophils #) system which generated this result tra nsmitted reference range : <=0.2. The reference r evelyn was not used to int erpret this result as normal/abnormal . [facility] AND [id number] 10:06:00 Test Item Value Reference Range Interpretation Comments UA Color (test code = Dark Yellow UA Color) *NA*(12/18/19 5:06 AM) [facility] AND [id number] 10:06:00 Test Item Value Reference Range Interpretation Comments UA Turbidity (test code Slight *ABN*(12/18/19 = UA Turbidity) 5:06 AM) [facility] AND [id number] 10:06:00 Test Item Value Reference Range Interpretation Comments UA Spec Grav (test code = UA Spec 1.018 1 Grav) [facility] AND [id number] 10:06:00 Test Item Value Reference Range Interpretation Comments UA pH (test code = UA pH) 6.0 1 5.0-8.[address] [facility] AND [id number] 10:06:00 Test Item Value Reference Range Interpretation Comments UA Protein (test code = UA Protein) 30 mg/dL [facility] AND [id number] 10:06:00 Test Item Value Reference Range Interpretation Comments UA Ketones (test code = UA Negative mg/dL Ketones) [facility] AND [id number] 10:06:00 Test Item Value Reference Range Interpretation Comments UA Bili (test code = Negative *NA*(12/18/19 UA Bili) 5:06 AM) [facility] AND [id number] 10:06:00 Test Item Value Reference Range Interpretation Comments UA Blood (test code = Negative (12/18/19 5:06 UA Blood) AM) [facility] AND [id number] 10:06:00 Test Item Value Reference Range Interpretation Comments UA Urobilinogen (test code = UA 4.0 0.1-1.0 Urobilinogen) [facility] AND [id number] 10:06:00 Test Item Value Reference Range Interpretation Comments UA Nitrite (test code Negative (12/18/19 5:06 = UA Nitrite) AM) [facility] AND [id number] 10:06:00 Test Item Value Reference Range Interpretation Comments UA Leuk Est (test Negative (12/18/19 5:06 code = UA Leuk Est) AM) [facility] AND [id number] 10:06:00 Test Item Value Reference Range Interpretation Comments UA Sq Epi (test code = UA Sq Moderate /LPF Epi) [facility] AND [id number] 10:06:00 Test Item Value Reference Range Interpretation Comments UA WBC (test code = 10 See_Comment [Automa porsche message] The UA WBC) system which ge nerated this result transmit porsche reference range : <=5. The reference range was not used to interpr et this result as alexia l/abnormal. [facility] AND [id number] 10:06:00 Test Item Value Reference Range Interpretation Comments UA RBC (test code = 2 See_Comment [Automa porsche message] The UA RBC) system which ge nerated this result transmit porsche reference range : <=2. The reference range was not used to interpr et this result as alexia l/abnormal. [facility] AND [id number] 10:06:00 Test Item Value Reference Range Interpretation Comments UA Bacteria (test code = UA Few /HPF Bacteria) [facility] AND [id number] 10:06:00 Test Item Value Reference Range Interpretation Comments UA Mucus (test code = UA Mucus) Few /LPF [facility] AND [id number] 10:06:00 Test Item Value Reference Range Interpretation Comments UA Hyal Cast (test 7 See_Comment [Automat ed message] The code = UA Hyal Cast) system which generated this result transmit porsche reference range : <=2. The reference range was not used to interpr et this result as alexia l/abnormal. [facility] AND [id number] 10:06:00 Test Item Value Reference Range Interpretation Comments UA Billings Yeast (test code = UA Occasional /HPF Billings Yeast) [facility] AND [id number] 10:06:00 Test Item Value Reference Range Interpretation Comments UA Glucose (test code = UA Glucose) 50mg/dl [facility]2020-07-18 16:05:00 Test Item Value Reference Range Interpretation Comments Glucose Lvl (test code = Glucose Lvl) 266 70-99 [facility]2020-07-18 16:05:00 Test Item Value Reference Range Interpretation Comments BUN (test code = BUN) 11 7-22 [facility]2020-07-18 16:05:00 Test Item Value Reference Range Interpretation Comments Creatinine Lvl (test code = Creatinine 0.80 0.50-1.40 Lvl) [facility]2020-07-18 16:05:00 Test Item Value Reference Range Interpretation Comments Sodium Lvl (test code = Sodium Lvl) 140 135-145 [facility]2020-07-18 16:05:00 Test Item Value Reference Range Interpretation Comments Potassium Lvl (test code = Potassium 3.4 3.5-5.1 Lvl) [facility]2020-07-18 16:05:00 Test Item Value Reference Range Interpretation Comments Chloride Lvl (test code = Chloride Lvl) 105 95-109 [facility]2020-07-18 16:05:00 Test Item Value Reference Range Interpretation Comments CO2 (test code = CO2) 31 24-32 [place] 808540-07-18 16:05:00 Test Item Value Reference Range Interpretation Comments Calcium Lvl (test code = Calcium Lvl) 8.2 8.5-10.5 [place] 808540-07-18 16:05:00 Test Item Value Reference Range Interpretation Comments AGAP (test code = AGAP) 7.4 10.0-20.0 [place] 808540-07-18 16:05:00 Test Item Value Reference Range Interpretation Comments eGFR (test code = eGFR) 74 [facility]2020-07-18 16:05:00 Test Item Value Reference Range Interpretation Comments Magnesium Lvl (test code = Magnesium 1.9 1.8-2.4 Lvl) [facility]2020-07-18 16:05:00 Test Item Value Reference Range Interpretation Comments Phosphorus (test code = Phosphorus) 2.8 2.5-4.5 [place] 085390-07-18 16:05:00 Test Item Value Reference Range Interpretation Comments WBC (test code = WBC) 8.9 3.7-10.4 [place] 085390-07-18 16:05:00 Test Item Value Reference Range Interpretation Comments RBC (test code = RBC) 3.03 4.20-5.40 [id number] 16:05:00 Test Item Value Reference Range Interpretation Comments Hgb (test code = Hgb) 9.3 12.0-16.0 [place] [address]-07-18 16:05:00 Test Item Value Reference Range Interpretation Comments Hct (test code = Hct) 28.4 36.0-48.0 [place] 085390-07-18 16:05:00 Test Item Value Reference Range Interpretation Comments MCV (test code = MCV) 93.8 80.0-98.0 [place] [address]-07-18 16:05:00 Test Item Value Reference Range Interpretation Comments MCH (test code = MCH) 30.7 pg 27.0-31.0 [place] [address]-07-18 16:05:00 Test Item Value Reference Range Interpretation Comments MCHC (test code = MCHC) 32.8 32.0-36.0 [id number] 16:05:00 Test Item Value Reference Range Interpretation Comments RDW (test code = RDW) 16.9 11.5-14.5 [facility]WqxlcuvSUBSSBVDIC0246-65-69 16:05:00 Test Item Value Reference Range Interpretation Comments Platelet (test code = Platelet) 197 133-450 [facility]XkxpapsPWATIWWCWA1188-88-09 16:05:00 Test Item Value Reference Range Interpretation Comments MPV (test code = MPV) 9.7 7.4-10.4 [facility]OcfvgyqZNRQQWKEET9732-13-29 16:05:00 Test Item Value Reference Range Interpretation Comments Segs (test code = Segs) 71.0 45.0-75.0 [facility]YdygqwjDYVVLEDPXK7908-36-74 16:05:00 Test Item Value Reference Range Interpretation Comments Lymphocytes (test code = Lymphocytes) 16.3 20.0-40.0 [facility]manFkhpyujINYJQWFIBT9357-76-72 16:05:00 Test Item Value Reference Range Interpretation Comments Monocytes (test code = Monocytes) 6.5 2.0-12.0 [facility]manJcyfhwsCPTYZAJFNN4615-68-63 16:05:00 Test Item Value Reference Range Interpretation Comments Eosinophils (test code = 4.0 See_Comment [A utomated message] The Eosinophils) system which ge nerated this result tra nsmitted reference range : <=4.0. The reference r evelyn was not used to int erpret this result as normal/abnormal . [facility]manMngtxpsFFZDSEHINN4914-56-50 16:05:00 Test Item Value Reference Range Interpretation Comments Basophils (test code = 2.2 See_Comment [Aut omated message] The Basophils) system which ge nerated this result tra nsmitted reference range : <=1.0. The reference r evelyn was not used to int erpret this result as normal/abnormal . [facility]manWhhwzdyHRKFMACBKY3023-92-32 16:05:00 Test Item Value Reference Range Interpretation Comments Neutrophils # (test code = Neutrophils 6.3 1.5-8.1 #) [facility]YixkywfOOKYLWYGMY0660-08-32 16:05:00 Test Item Value Reference Range Interpretation Comments Lymphocytes # (test code = Lymphocytes 1.4 1.0-5.5 #) [facility]QnqvgrsRSFVHATHGZ9909-52-44 16:05:00 Test Item Value Reference Range Interpretation Comments Monocytes # (test code 0.6 See_Comment [Aut omated message] The = Monocytes #) system which generated this result tra nsmitted reference range : <=0.8. The reference r evelyn was not used to int erpret this result as normal/abnormal . [facility]WerdpbhIPSVVHIZSZ7990-03-23 16:05:00 Test Item Value Reference Range Interpretation Comments Eosinophils # (test code 0.4 See_Comment [A utomated message] The = Eosinophils #) system whic h generated this result tra nsmitted reference range : <=0.5. The reference r evelyn was not used to int erpret this result as normal/abnormal . [facility]XDMGBPZET1058-34-91 16:05:00 Test Item Value Reference Range Interpretation Comments Basophils # (test code 0.2 See_Comment [Aut omated message] The = Basophils #) system which generated this result tra nsmitted reference range : <=0.2. The reference r evelyn was not used to int erpret this result as normal/abnormal . [facility] HospitalCARDIAC [id number] 05:24:00 Test Item Value Reference Range Interpretation Comments Troponin-I (test code 0.03 See_Comment [Auto mated message] The = Troponin-I) system which g enerated this result transmit porsche reference range : <=0.40. The reference r evelyn was not used to interpr et this result as alexia l/abnormal. [facility] [id number] 05:24:00 Test Item Value Reference Range Interpretation Comments Glucose Lvl (test code = Glucose Lvl) 155 70-99 [facility] [id number] 05:24:00 Test Item Value Reference Range Interpretation Comments BUN (test code = BUN) 12 7-22 [facility] [id number] 05:24:00 Test Item Value Reference Range Interpretation Comments Creatinine Lvl (test code = Creatinine 0.59 0.50-1.40 Lvl) [facility] [id number] 05:24:00 Test Item Value Reference Range Interpretation Comments Sodium Lvl (test code = Sodium Lvl) 142 135-145 [facility] [id number] 05:24:00 Test Item Value Reference Range Interpretation Comments Potassium Lvl (test code = Potassium 3.9 3.5-5.1 Lvl) [place] 808540-07-16 05:24:00 Test Item Value Reference Range Interpretation Comments Chloride Lvl (test code = Chloride Lvl) 103 95-109 [place] 808540-07-16 05:24:00 Test Item Value Reference Range Interpretation Comments CO2 (test code = CO2) 34 24-32 [place] [address]-07-16 05:24:00 Test Item Value Reference Range Interpretation Comments Calcium Lvl (test code = Calcium Lvl) 8.3 8.5-10.5 [place] 808540-07-16 05:24:00 Test Item Value Reference Range Interpretation Comments AGAP (test code = AGAP) 8.9 10.0-20.0 [place] 808540-07-16 05:24:00 Test Item Value Reference Range Interpretation Comments eGFR (test code = eGFR) 92 [place] 808540-07-16 05:24:00 Test Item Value Reference Range Interpretation Comments Magnesium Lvl (test code = Magnesium 2.1 1.8-2.4 Lvl) [place] 808540-07-16 05:24:00 Test Item Value Reference Range Interpretation Comments Phosphorus (test code = Phosphorus) 2.4 2.5-4.5 [place] 085390-07-16 05:24:00 Test Item Value Reference Range Interpretation Comments WBC (test code = WBC) 11.9 3.7-10.4 [place] 085390-07-16 05:24:00 Test Item Value Reference Range Interpretation Comments RBC (test code = RBC) 3.25 4.20-5.40 [place] 085390-07-16 05:24:00 Test Item Value Reference Range Interpretation Comments Hgb (test code = Hgb) 9.5 12.0-16.0 [place] [address]-07-16 05:24:00 Test Item Value Reference Range Interpretation Comments Hct (test code = Hct) 30.4 36.0-48.0 [place] [address]-07-16 05:24:00 Test Item Value Reference Range Interpretation Comments MCV (test code = MCV) 93.5 80.0-98.0 [facility]VhlppxoVNFPUJWPCG8072-03-18 05:24:00 Test Item Value Reference Range Interpretation Comments MCH (test code = MCH) 29.3 pg 27.0-31.0 [facility]manInqvlbpYNKOSBHXGX9980-89-80 05:24:00 Test Item Value Reference Range Interpretation Comments MCHC (test code = MCHC) 31.4 32.0-36.0 [facility]manJexalosJMMQBDKCXC8713-42-55 05:24:00 Test Item Value Reference Range Interpretation Comments RDW (test code = RDW) 17.3 11.5-14.5 [facility]manLjjkxyuMPXXIUSBRB4321-72-94 05:24:00 Test Item Value Reference Range Interpretation Comments Platelet (test code = Platelet) 193 133-450 [facility]XdbhebkVPWQIXTBMT3687-04-49 05:24:00 Test Item Value Reference Range Interpretation Comments MPV (test code = MPV) 10.2 7.4-10.4 [facility]manXepfltmGUJRPTFEIK0294-74-42 05:24:00 Test Item Value Reference Range Interpretation Comments Segs (test code = Segs) 69.3 45.0-75.0 [facility]manNgxxmlxLTKVLXVLZT0671-14-16 05:24:00 Test Item Value Reference Range Interpretation Comments Lymphocytes (test code = Lymphocytes) 18.5 20.0-40.0 [facility]manGwcjxmeKZCYUXDNUZ2458-39-33 05:24:00 Test Item Value Reference Range Interpretation Comments Monocytes (test code = Monocytes) 7.6 2.0-12.0 [facility]manIwfucobSGFFVCHUIH3756-48-22 05:24:00 Test Item Value Reference Range Interpretation Comments Eosinophils (test code = 3.8 See_Comment [A utomated message] The Eosinophils) system which ge nerated this result tra nsmitted reference range : <=4.0. The reference r evelyn was not used to int erpret this result as normal/abnormal . [facility]manTeooukgXZTZCLROEB2127-97-86 05:24:00 Test Item Value Reference Range Interpretation Comments Basophils (test code = 0.8 See_Comment [Aut omated message] The Basophils) system which ge nerated this result tra nsmitted reference range : <=1.0. The reference r evelyn was not used to int erpret this result as normal/abnormal . [facility]manWjkegnwRJBNERFKQU8129-45-17 05:24:00 Test Item Value Reference Range Interpretation Comments Neutrophils # (test code = Neutrophils 8.3 1.5-8.1 #) [facility]manIqiqitwBGLFVYAMUG9301-12-37 05:24:00 Test Item Value Reference Range Interpretation Comments Lymphocytes # (test code = Lymphocytes 2.2 1.0-5.5 #) [facility]manPfocdgdHWRUJDWLUZ4074-97-67 05:24:00 Test Item Value Reference Range Interpretation Comments Monocytes # (test code 0.9 See_Comment [Aut omated message] The = Monocytes #) system which generated this result tra nsmitted reference range : <=0.8. The reference r evelyn was not used to int erpret this result as normal/abnormal . [facility]manEbrgsvbNEJIRMVMEE1670-99-33 05:24:00 Test Item Value Reference Range Interpretation Comments Eosinophils # (test code 0.5 See_Comment [A utomated message] The = Eosinophils #) system whic h generated this result tra nsmitted reference range : <=0.5. The reference r evelyn was not used to int erpret this result as normal/abnormal . [facility]manQhgwoybDPSKODVXPB1785-25-64 05:24:00 Test Item Value Reference Range Interpretation Comments Basophils # (test code 0.1 See_Comment [Aut omated message] The = Basophils #) system which generated this result tra nsmitted reference range : <=0.2. The reference r evelyn was not used to int erpret this result as normal/abnormal . [facility]manFiquxfgOYFWNUZBQT2242-23-47 11:58:00 Test Item Value Reference Range Interpretation Comments RBC Morph (test code = Normal (12/14/19 6:58 RBC Morph) AM) [facility]manYwqfokvQZHKHHFQIW8827-06-90 11:58:00 Test Item Value Reference Range Interpretation Comments Plt Morph (test code = Normal (12/14/19 6:58 Plt Morph) AM) [facility]2020-07-12 15:50:00 Test Item Value Reference Range Interpretation Comments Total Protein (test code = Total 5.2 6.4-8.4 Protein) [facility]2020-07-12 15:50:00 Test Item Value Reference Range Interpretation Comments Albumin Lvl (test code = Albumin Lvl) 2.2 3.5-5.0 [facility]2020-07-12 15:50:00 Test Item Value Reference Range Interpretation Comments ALT (test code = ALT) 22 See_Comment [Auto mated message] The system which ge nerated this result transmit porsche reference range : <=65. The reference range was not used to interpr et this result as alexia l/abnormal. [facility] [id number] 15:50:00 Test Item Value Reference Range Interpretation Comments AST (test code = AST) 13 See_Comment [Auto mated message] The system which ge nerated this result transmit porsche reference range : <=37. The reference range was not used to interpr et this result as alexia l/abnormal. [facility] [id number] 15:50:00 Test Item Value Reference Range Interpretation Comments Alk Phos (test code = Alk Phos) 251 39-136 [facility]aleCelt[facility] Therapeutics HoldingsCRITICAL ACCESS [id number] 15:50:00 Test Item Value Reference Range Interpretation Comments Bili Total (test code = Bili Total) 0.9 0.2-1.3 [facility] HospitalLovejuice [id number] 15:50:00 Test Item Value Reference Range Interpretation Comments B/C Ratio (test code = B/C Ratio) 25 1 6-25 [facility]2020-07-12 15:50:00 Test Item Value Reference Range Interpretation Comments Globulin (test code = Globulin) 3.0 2.7-4.2 [facility]2020-07-12 15:50:00 Test Item Value Reference Range Interpretation Comments A/G Ratio (test code = A/G Ratio) 0.7 1 0.7-1.[address] [facility] [id number] 17:45:00 Test Item Value Reference Range Interpretation Comments Cris Occult Bld (test Positive *ABN*(12/09/19 code = Cris Occult 12:45 PM) Bld) [facility]manVfwchevELAYVOWLPV6240-27-12 16:46:00 Test Item Value Reference Range Interpretation Comments RBC Morph (test code = Normal (12/09/19 11:46 RBC Morph) AM) [facility]manPzbemjqKLBFPKLMIJ1776-90-37 16:46:00 Test Item Value Reference Range Interpretation Comments Plt Morph (test code = Normal (12/09/19 11:46 Plt Morph) AM) [facility]2020-07-08 05:23:00 Test Item Value Reference Range Interpretation Comments Total Protein (test code = Total 4.5 6.4-8.4 Protein) [facility] [id number] 05:23:00 Test Item Value Reference Range Interpretation Comments Albumin Lvl (test code = Albumin Lvl) 2.5 3.5-5.0 [facility] [id number] 05:23:00 Test Item Value Reference Range Interpretation Comments ALT (test code = ALT) 27 See_Comment [Auto mated message] The system which ge nerated this result transmit porsche reference range : <=65. The reference range was not used to interpr et this result as alexia l/abnormal. [facility] [id number] 05:23:00 Test Item Value Reference Range Interpretation Comments AST (test code = AST) 11 See_Comment [Auto mated message] The system which ge nerated this result transmit porsche reference range : <=37. The reference range was not used to interpr et this result as alexia l/abnormal. [facility] [id number] 05:23:00 Test Item Value Reference Range Interpretation Comments Alk Phos (test code = Alk Phos) 82 39-136 [facility] [id number] 05:23:00 Test Item Value Reference Range Interpretation Comments Bili Total (test code = Bili Total) 0.8 0.2-1.3 [facility] [id number] 05:23:00 Test Item Value Reference Range Interpretation Comments Bili Direct (test code 0.3 See_Comment [Aut omated message] The = Bili Direct) system which generated this result tra nsmitted reference range : <=0.3. The reference r evelyn was not used to int erpret this result as alexia l/abnormal. [facility] [id number] 05:23:00 Test Item Value Reference Range Interpretation Comments Bili Indirect (test 0.5 See_Comment [Automa porsche message] The code = Bili Indirect) system which generated this result tra nsmitted reference range : <=1.0. The reference r evelyn was not used to int erpret this result as normal/abnormal . [facility] [id number] 05:23:00 Test Item Value Reference Range Interpretation Comments Globulin (test code = Globulin) 2.0 2.7-4.2 [facility] [id number] 05:23:00 Test Item Value Reference Range Interpretation Comments A/G Ratio (test code = A/G Ratio) 1.2 1 0.7-1.6 [facility]2020-07-08 05:23:00 Test Item Value Reference Range Interpretation Comments Ca Ion WB (test code = Ca Ion WB) 1.05 1.05-1.25 [facility]2020-07-08 05:23:00 Test Item Value Reference Range Interpretation Comments Ca Norm WB (test code = Ca Norm WB) 1.09 1.05-1.25 [facility] 05:37:00 Test Item Value Reference Range Interpretation Comments PTT (test code = PTT) 31.1 s 22.9-35.8 [id number] 05:37:00 Test Item Value Reference Range Interpretation Comments PT (test code = PT) 15.3 s 12.0-14.7 [facility]HbrmlmhBGLIYTCMQV5970-70-70 05:37:00 Test Item Value Reference Range Interpretation Comments INR (test code = INR) 1.20 1 0.85-1.17 [facility]2020-07-07 05:21:00 Test Item Value Reference Range Interpretation Comments Ca Ion WB (test code = Ca Ion WB) 1.06 1.05-1.25 [facility]2020-07-07 05:21:00 Test Item Value Reference Range Interpretation Comments Ca Norm WB (test code = Ca Norm WB) 1.10 1.05-1.25 [facility] [id number] 22:53:00 Test Item Value Reference Range Interpretation Comments RBC product (test code Product available = RBC product) (12/05/19 5:53 PM) [id number] 22:43:00 Test Item Value Reference Range Interpretation Comments Plt Morph (test code = See Note 1(12/05/19 5:43 Plt Morph) PM) [facility]QdmlhtaBHZKKQNJXA4382-15-10 22:43:00 Test Item Value Reference Range Interpretation Comments Anisocyte (test code = 1+ *ABN*(12/05/19 5:43 Anisocyte) PM) [facility] Center[facility] [id number] 22:21:00 Test Item Value Reference Range Interpretation Comments RBC product (test code Product available = RBC product) (12/05/19 5:21 PM) [facility] [id number] 06:02:00 Test Item Value Reference Range Interpretation Comments Antibody Scrn (test Negative (12/05/19 1:02 code = Antibody Scrn) AM) [facility] [employer] [facility] [id number] 06:02:00 Test Item Value Reference Range Interpretation Comments ABO/Rh (test code = ABO/Rh) O POS [facility] [employer] [facility] [id number] 06:02:00 Test Item Value Reference Range Interpretation Comments BB Note (test code = Result Note 5(12/05/19 BB Note) 1:02 AM) [facility]DymnrwgGFWZGTPMOH3782-66-77 06:02:00 Test Item Value Reference Range Interpretation Comments PT (test code = PT) 12.8 s 12.0-14.7 [facility] ZwrbbjdRXNBYCGUGP5723-41-69 06:02:00 Test Item Value Reference Range Interpretation Comments INR (test code = INR) 0.96 1 0.85-1.17 [facility] [id number] 06:02:00 Test Item Value Reference Range Interpretation Comments PTT (test code = PTT) 28.3 s 22.9-35.8 [facility] [id number] 09:52:00 Test Item Value Reference Range Interpretation Comments Glucose Lvl (test code = Glucose Lvl) 146 70-99 [facility] [id number] 09:52:00 Test Item Value Reference Range Interpretation Comments BUN (test code = BUN) 16 7-22 [facility] [id number] 09:52:00 Test Item Value Reference Range Interpretation Comments Creatinine Lvl (test code = Creatinine 0.75 0.50-1.40 Lvl) [facility] [id number] 09:52:00 Test Item Value Reference Range Interpretation Comments Sodium Lvl (test code = Sodium Lvl) 142 135-145 [facility] [id number] 09:52:00 Test Item Value Reference Range Interpretation Comments Potassium Lvl (test code = Potassium 3.7 3.5-5.1 Lvl) [facility]2020-07-02 09:52:00 Test Item Value Reference Range Interpretation Comments Chloride Lvl (test code = Chloride Lvl) 106 95-109 [facility]2020-07-02 09:52:00 Test Item Value Reference Range Interpretation Comments CO2 (test code = CO2) 29 24-32 [place] 808540-07-02 09:52:00 Test Item Value Reference Range Interpretation Comments Calcium Lvl (test code = Calcium Lvl) 8.3 8.5-10.5 [place] 808540-07-02 09:52:00 Test Item Value Reference Range Interpretation Comments AGAP (test code = AGAP) 10.7 10.0-20.0 [place] 808540-07-02 09:52:00 Test Item Value Reference Range Interpretation Comments eGFR (test code = eGFR) 80 [facility]FwuuhzqUROYOMMQMP9317-97-17 09:52:00 Test Item Value Reference Range Interpretation Comments WBC (test code = WBC) 11.0 3.7-10.4 [place] 085390-07-02 09:52:00 Test Item Value Reference Range Interpretation Comments RBC (test code = RBC) 4.45 4.20-5.40 [place] 085390-07-02 09:52:00 Test Item Value Reference Range Interpretation Comments Hgb (test code = Hgb) 13.7 12.0-16.0 [place] 085390-07-02 09:52:00 Test Item Value Reference Range Interpretation Comments Hct (test code = Hct) 41.0 36.0-48.0 [place] [address]-07-02 09:52:00 Test Item Value Reference Range Interpretation Comments MCV (test code = MCV) 92.1 80.0-98.0 [place] [address]-07-02 09:52:00 Test Item Value Reference Range Interpretation Comments MCH (test code = MCH) 30.7 pg 27.0-31.0 [place] 085390-07-02 09:52:00 Test Item Value Reference Range Interpretation Comments MCHC (test code = MCHC) 33.4 32.0-36.0 [place] 085390-07-02 09:52:00 Test Item Value Reference Range Interpretation Comments RDW (test code = RDW) 16.7 11.5-14.5 [place] 085390-07-02 09:52:00 Test Item Value Reference Range Interpretation Comments Platelet (test code = Platelet) 173 133-450 [place] 085390-07-02 09:52:00 Test Item Value Reference Range Interpretation Comments MPV (test code = MPV) 9.6 7.4-10.4 [place] 085390-07-02 09:52:00 Test Item Value Reference Range Interpretation Comments Segs (test code = Segs) 67.9 45.0-75.0 [place] 085390-07-02 09:52:00 Test Item Value Reference Range Interpretation Comments Lymphocytes (test code = Lymphocytes) 20.7 20.0-40.0 [place] 085390-07-02 09:52:00 Test Item Value Reference Range Interpretation Comments Monocytes (test code = Monocytes) 9.8 2.0-12.0 [id number] 09:52:00 Test Item Value Reference Range Interpretation Comments Eosinophils (test code = 0.7 See_Comment [A utomated message] The Eosinophils) system which ge nerated this result tra nsmitted reference range : <=4.0. The reference r evelyn was not used to int erpret this result as normal/abnormal . [facility]manCilozzbNQAXCPIOZG4714-30-27 09:52:00 Test Item Value Reference Range Interpretation Comments Basophils (test code = 0.9 See_Comment [Aut omated message] The Basophils) system which ge nerated this result tra nsmitted reference range : <=1.0. The reference r evelyn was not used to int erpret this result as normal/abnormal . [facility]manQtfsfbdMQNGDQEXFC2383-16-50 09:52:00 Test Item Value Reference Range Interpretation Comments Neutrophils # (test code = Neutrophils 7.4 1.5-8.1 #) [facility]manLmsygsaHZWUXKUTMB6559-46-33 09:52:00 Test Item Value Reference Range Interpretation Comments Lymphocytes # (test code = Lymphocytes 2.3 1.0-5.5 #) [place] 085390-07-02 09:52:00 Test Item Value Reference Range Interpretation Comments Monocytes # (test code 1.1 See_Comment [Aut omated message] The = Monocytes #) system which generated this result tra nsmitted reference range : <=0.8. The reference r evelyn was not used to int erpret this result as normal/abnormal . [facility]manGgvhzwoCRODILDRYB6353-68-16 09:52:00 Test Item Value Reference Range Interpretation Comments Eosinophils # (test code 0.1 See_Comment [A utomated message] The = Eosinophils #) system whic h generated this result tra nsmitted reference range : <=0.5. The reference r evelyn was not used to int erpret this result as normal/abnormal . [facility]ApwdkgbCWUPUCYCGV4636-31-83 09:52:00 Test Item Value Reference Range Interpretation Comments Basophils # (test code 0.1 See_Comment [Aut omated message] The = Basophils #) system which generated this result tra nsmitted reference range : <=0.2. The reference r evelyn was not used to int erpret this result as normal/abnormal . [facility] AND [id number] 01:14:00 Test Item Value Reference Range Interpretation Comments UA Color (test code = Light Yellow UA Color) *NA*(11/30/19 8:14 PM) [facility] AND [id number] 01:14:00 Test Item Value Reference Range Interpretation Comments UA Turbidity (test code = Clear (11/30/19 8:14 UA Turbidity) PM) [facility] AND [id number] 01:14:00 Test Item Value Reference Range Interpretation Comments UA Spec Grav (test code = UA Spec 1.012 1 Grav) [facility] AND [id number] 01:14:00 Test Item Value Reference Range Interpretation Comments UA pH (test code = UA pH) 7.0 1 5.0-8.[address] [facility] AND [id number] 01:14:00 Test Item Value Reference Range Interpretation Comments UA Protein (test code = UA Negative mg/dL Protein) [facility] AND [id number] 01:14:00 Test Item Value Reference Range Interpretation Comments UA Ketones (test code = UA Ketones) 20 mg/dL [facility] AND [id number] 01:14:00 Test Item Value Reference Range Interpretation Comments UA Bili (test code = Negative *NA*(11/30/19 UA Bili) 8:14 PM) [facility] [id number] 01:14:00 Test Item Value Reference Range Interpretation Comments UA Blood (test code = Small *ABN*(11/30/19 UA Blood) 8:14 PM) [facility] [id number] 01:14:00 Test Item Value Reference Range Interpretation Comments UA Urobilinogen (test code = UA no gt 0.1-1.0 Urobilinogen) [facility] [id number] 01:14:00 Test Item Value Reference Range Interpretation Comments UA Nitrite (test code Negative (11/30/19 8:14 = UA Nitrite) PM) [facility] [id number] 01:14:00 Test Item Value Reference Range Interpretation Comments UA Leuk Est (test Negative (11/30/19 8:14 code = UA Leuk Est) PM) [facility] [id number] 01:14:00 Test Item Value Reference Range Interpretation Comments UA Sq Epi (test code = UA Sq Occasional /LPF Epi) [facility] [id number] 01:14:00 Test Item Value Reference Range Interpretation Comments UA WBC (test code = no gt See_Comment [Automa porsche message] The UA WBC) system which ge nerated this result transmit porsche reference range : <=5. The reference range was not used to interpr et this result as alexia l/abnormal. [facility] [id number] 01:14:00 Test Item Value Reference Range Interpretation Comments UA RBC (test code = 1 See_Comment [Automa porsche message] The UA RBC) system which ge nerated this result transmit porsche reference range : <=2. The reference range was not used to interpr et this result as alexia l/abnormal. [facility] [id number] 01:14:00 Test Item Value Reference Range Interpretation Comments UA Bacteria (test code = UA Occasional /HPF Bacteria) [facility] [id number] 01:14:00 Test Item Value Reference Range Interpretation Comments UA Mucus (test code = UA Mucus) Few /LPF [facility] [id number] 01:14:00 Test Item Value Reference Range Interpretation Comments UA Glucose (test code = UA Glucose) 50mg/dl [facility]2020-07-01 11:13:00 Test Item Value Reference Range Interpretation Comments Glucose Lvl (test code = Glucose Lvl) 116 70-99 [place] 808540-07-01 11:13:00 Test Item Value Reference Range Interpretation Comments BUN (test code = BUN) 22 7-22 [place] 808540-07-01 11:13:00 Test Item Value Reference Range Interpretation Comments Creatinine Lvl (test code = Creatinine 0.83 0.50-1.40 Lvl) [place] 808540-07-01 11:13:00 Test Item Value Reference Range Interpretation Comments Sodium Lvl (test code = Sodium Lvl) 140 135-145 [place] 808540-07-01 11:13:00 Test Item Value Reference Range Interpretation Comments Potassium Lvl (test code = Potassium 5.3 3.5-5.1 Lvl) [place] 808540-07-01 11:13:00 Test Item Value Reference Range Interpretation Comments Chloride Lvl (test code = Chloride Lvl) 105 95-109 [place] 808540-07-01 11:13:00 Test Item Value Reference Range Interpretation Comments CO2 (test code = CO2) 28 24-32 [facility]2020-07-01 11:13:00 Test Item Value Reference Range Interpretation Comments Calcium Lvl (test code = Calcium Lvl) 7.8 8.5-10.5 [place] 808540-07-01 11:13:00 Test Item Value Reference Range Interpretation Comments AGAP (test code = AGAP) 12.3 10.0-20.0 [place] 808540-07-01 11:13:00 Test Item Value Reference Range Interpretation Comments eGFR (test code = eGFR) 71 [facility]ZoynajoQOSLWFJVPJ4496-04-57 11:13:00 Test Item Value Reference Range Interpretation Comments PT (test code = PT) 13.3 s 12.0-14.7 [place] 085390-07-01 11:13:00 Test Item Value Reference Range Interpretation Comments INR (test code = INR) 1.01 1 0.85-1.17 [place] 085390-07-01 11:13:00 Test Item Value Reference Range Interpretation Comments PTT (test code = PTT) 29.5 s 22.9-35.8 [id number] 11:13:00 Test Item Value Reference Range Interpretation Comments WBC (test code = WBC) 10.6 3.7-10.4 [facility]manMplozhwLJHYIWSZWV3918-28-57 11:13:00 Test Item Value Reference Range Interpretation Comments RBC (test code = RBC) 4.40 4.20-5.40 [facility]manHxoimfyPEUWMUHTFR1247-30-77 11:13:00 Test Item Value Reference Range Interpretation Comments Hgb (test code = Hgb) 13.0 12.0-16.0 [facility]manBpdyyiaYLATNJQZKQ8788-72-00 11:13:00 Test Item Value Reference Range Interpretation Comments Hct (test code = Hct) 40.0 36.0-48.0 [facility]manXlyfhqtMMOARYGWIC8209-37-13 11:13:00 Test Item Value Reference Range Interpretation Comments MCV (test code = MCV) 91.0 80.0-98.0 [facility]manQuurivtXWTZGGPGBT9429-14-27 11:13:00 Test Item Value Reference Range Interpretation Comments MCH (test code = MCH) 29.5 pg 27.0-31.0 [facility]manFxcbdvbLYJTEZCQMN8411-61-55 11:13:00 Test Item Value Reference Range Interpretation Comments MCHC (test code = MCHC) 32.4 32.0-36.0 [facility]manJgaaoovWQFTTUSTKJ0370-57-98 11:13:00 Test Item Value Reference Range Interpretation Comments RDW (test code = RDW) 16.5 11.5-14.5 [facility]manBfgrdguPTTVXGHOFH0888-78-03 11:13:00 Test Item Value Reference Range Interpretation Comments Platelet (test code = Platelet) 153 133-450 [facility]manEdfxywzHGAWZAUPTK4347-32-86 11:13:00 Test Item Value Reference Range Interpretation Comments MPV (test code = MPV) 10.0 7.4-10.4 [facility]manSniaarrKOGPGJRSJM5219-38-26 11:13:00 Test Item Value Reference Range Interpretation Comments Segs (test code = Segs) 59.5 45.0-75.0 [facility]manGmfyzobQWYYSMAJLX0089-62-35 11:13:00 Test Item Value Reference Range Interpretation Comments Lymphocytes (test code = Lymphocytes) 29.2 20.0-40.0 [facility]manBbajerqXBURNYUAVI2424-10-67 11:13:00 Test Item Value Reference Range Interpretation Comments Monocytes (test code = Monocytes) 9.3 2.0-12.0 [facility]manTcfxwgdOHQVXSZPPX5337-84-04 11:13:00 Test Item Value Reference Range Interpretation Comments Eosinophils (test code = 1.0 See_Comment [A utomated message] The Eosinophils) system which ge nerated this result tra nsmitted reference range : <=4.0. The reference r evelyn was not used to int erpret this result as normal/abnormal . [facility]manPhmbcduZHETKKVVAH3903-37-85 11:13:00 Test Item Value Reference Range Interpretation Comments Basophils (test code = 1.0 See_Comment [Aut omated message] The Basophils) system which ge nerated this result tra nsmitted reference range : <=1.0. The reference r evelyn was not used to int erpret this result as normal/abnormal . [facility]manNhybbxxYAHEUZIGTT4312-39-41 11:13:00 Test Item Value Reference Range Interpretation Comments Neutrophils # (test code = Neutrophils 6.3 1.5-8.1 #) [facility]manRkkudneYNEXTGMFCZ8505-11-38 11:13:00 Test Item Value Reference Range Interpretation Comments Lymphocytes # (test code = Lymphocytes 3.1 1.0-5.5 #) [facility]manXzcuvlvDAFHGSMKJR0992-10-77 11:13:00 Test Item Value Reference Range Interpretation Comments Monocytes # (test code 1.0 See_Comment [Aut omated message] The = Monocytes #) system which generated this result tra nsmitted reference range : <=0.8. The reference r evelyn was not used to int erpret this result as normal/abnormal . [facility]manZwhgtgxODMABCPAFV2372-70-98 11:13:00 Test Item Value Reference Range Interpretation Comments Eosinophils # (test code 0.1 See_Comment [A utomated message] The = Eosinophils #) system whic h generated this result tra nsmitted reference range : <=0.5. The reference r evelyn was not used to int erpret this result as normal/abnormal . [facility]manEubuzviTFOBECSLIP5115-95-04 11:13:00 Test Item Value Reference Range Interpretation Comments Basophils # (test code 0.1 See_Comment [Aut omated message] The = Basophils #) system which generated this result tra nsmitted reference range : <=0.2. The reference r evelyn was not used to int erpret this result as normal/abnormal . [employer] [id number] 09:04:00 Test Item Value Reference Range Interpretation Comments ABO/Rh (test code = ABO/Rh) O POS [facility] [employer] [id number] 09:04:00 Test Item Value Reference Range Interpretation Comments Antibody Scrn (test Negative (11/29/19 4:04 code = Antibody Scrn) AM) [employer] [id number] 09:04:00 Test Item Value Reference Range Interpretation Comments Glucose Lvl (test code = Glucose Lvl) 97 70-99 [facility] [employer]2020-06-30 09:04:00 Test Item Value Reference Range Interpretation Comments BUN (test code = BUN) 26 7-22 [employer]2020-06-30 09:04:00 Test Item Value Reference Range Interpretation Comments Creatinine Lvl (test code = Creatinine 0.90 0.50-1.40 Lvl) [employer]2020-06-30 09:04:00 Test Item Value Reference Range Interpretation Comments Sodium Lvl (test code = Sodium Lvl) 140 135-145 [employer]2020-06-30 09:04:00 Test Item Value Reference Range Interpretation Comments Potassium Lvl (test code = Potassium 3.9 3.5-5.1 Lvl) [employer]2020-06-30 09:04:00 Test Item Value Reference Range Interpretation Comments Chloride Lvl (test code = Chloride Lvl) 106 95-109 [employer]2020-06-30 09:04:00 Test Item Value Reference Range Interpretation Comments CO2 (test code = CO2) 32 24-32 [employer]2020-06-30 09:04:00 Test Item Value Reference Range Interpretation Comments Calcium Lvl (test code = Calcium Lvl) 8.7 8.5-10.5 [employer]2020-06-30 09:04:00 Test Item Value Reference Range Interpretation Comments AGAP (test code = AGAP) 5.9 10.0-20.0 [employer]2020-06-30 09:04:00 Test Item Value Reference Range Interpretation Comments eGFR (test code = eGFR) 64 [facility]manCmjdubsIBWMBEFQWA0361-96-85 09:04:00 Test Item Value Reference Range Interpretation Comments PT (test code = PT) 13.6 s 12.0-14.7 [place] 085390-06-30 09:04:00 Test Item Value Reference Range Interpretation Comments INR (test code = INR) 1.04 1 0.85-1.17 [place] 085390-06-30 09:04:00 Test Item Value Reference Range Interpretation Comments PTT (test code = PTT) 30.9 s 22.9-35.8 [place] 085390-06-30 09:04:00 Test Item Value Reference Range Interpretation Comments WBC (test code = WBC) 10.6 3.7-10.4 [place] 085390-06-30 09:04:00 Test Item Value Reference Range Interpretation Comments RBC (test code = RBC) 4.50 4.20-5.40 [place] 085390-06-30 09:04:00 Test Item Value Reference Range Interpretation Comments Hgb (test code = Hgb) 13.5 12.0-16.0 [place] 085390-06-30 09:04:00 Test Item Value Reference Range Interpretation Comments Hct (test code = Hct) 40.4 36.0-48.0 [place] 085390-06-30 09:04:00 Test Item Value Reference Range Interpretation Comments MCV (test code = MCV) 89.8 80.0-98.0 [place] 085390-06-30 09:04:00 Test Item Value Reference Range Interpretation Comments MCH (test code = MCH) 30.0 pg 27.0-31.0 [place] 085390-06-30 09:04:00 Test Item Value Reference Range Interpretation Comments MCHC (test code = MCHC) 33.4 32.0-36.0 [place] 085390-06-30 09:04:00 Test Item Value Reference Range Interpretation Comments RDW (test code = RDW) 16.7 11.5-14.5 [place] 085390-06-30 09:04:00 Test Item Value Reference Range Interpretation Comments Platelet (test code = Platelet) 155 133-450 [facility]manGlkjextYZWSUSGKHE4678-55-44 09:04:00 Test Item Value Reference Range Interpretation Comments MPV (test code = MPV) 9.5 7.4-10.4 [facility]manMejdkvvBQNGJUVNKQ2047-87-90 09:04:00 Test Item Value Reference Range Interpretation Comments Segs (test code = Segs) 65.7 45.0-75.0 [facility]manAtaouceNTSXYJUMWE4075-61-43 09:04:00 Test Item Value Reference Range Interpretation Comments Lymphocytes (test code = Lymphocytes) 24.6 20.0-40.0 [place] 085390-06-30 09:04:00 Test Item Value Reference Range Interpretation Comments Monocytes (test code = Monocytes) 8.2 2.0-12.0 [facility]manBjmnhgiXSMTTBDGWS0492-86-38 09:04:00 Test Item Value Reference Range Interpretation Comments Eosinophils (test code = 0.8 See_Comment [A utomated message] The Eosinophils) system which ge nerated this result tra nsmitted reference range : <=4.0. The reference r evelyn was not used to int erpret this result as normal/abnormal . [facility]manAyurxvfCJSABGLYFM3975-20-17 09:04:00 Test Item Value Reference Range Interpretation Comments Basophils (test code = 0.7 See_Comment [Aut omated message] The Basophils) system which ge nerated this result tra nsmitted reference range : <=1.0. The reference r evelyn was not used to int erpret this result as normal/abnormal . [facility]manQkvvwlnQJXQTFPVVS0765-90-99 09:04:00 Test Item Value Reference Range Interpretation Comments Neutrophils # (test code = Neutrophils 6.9 1.5-8.1 #) [facility]zhwhuqEBUTOGGEHK4042-37-25 09:04:00 Test Item Value Reference Range Interpretation Comments Lymphocytes # (test code = Lymphocytes 2.6 1.0-5.5 #) [facility]manIwfahurWECDRYEFNY2840-87-27 09:04:00 Test Item Value Reference Range Interpretation Comments Monocytes # (test code 0.9 See_Comment [Aut omated message] The = Monocytes #) system which generated this result tra nsmitted reference range : <=0.8. The reference r evelyn was not used to int erpret this result as normal/abnormal . [place] 085390-06-30 09:04:00 Test Item Value Reference Range Interpretation Comments Eosinophils # (test code 0.1 See_Comment [A utomated message] The = Eosinophils #) system whic h generated this result tra nsmitted reference range : <=0.5. The reference r evelyn was not used to int erpret this result as normal/abnormal . [facility]manBqltmfoVLABTATWCU4047-99-08 09:04:00 Test Item Value Reference Range Interpretation Comments Basophils # (test code 0.1 See_Comment [Aut omated message] The = Basophils #) system which generated this result tra nsmitted reference range : <=0.2. The reference r evelyn was not used to int erpret this result as normal/abnormal . [facility] HospitalPdjxwhvLMBWISXBIJ8042-76-73 21:00:00 Test Item Value Reference Range Interpretation Comments Coronavirus (COVID-19) Not Detected (11/27/19 BRANDON (test code = 4:00 PM) Coronavirus (COVID-19) BRANDON) [facility]2020-06-28 09:32:00 Test Item Value Reference Range Interpretation Comments Glucose Lvl (test code = Glucose Lvl) 137 70-99 [facility] [id number] 09:32:00 Test Item Value Reference Range Interpretation Comments BUN (test code = BUN) 24 7-22 [facility] [id number] 09:32:00 Test Item Value Reference Range Interpretation Comments Creatinine Lvl (test code = Creatinine 0.60 0.50-1.40 Lvl) [facility]aleCelt[facility] Therapeutics HoldingsCRITICAL ACCESS [id number] 09:32:00 Test Item Value Reference Range Interpretation Comments Sodium Lvl (test code = Sodium Lvl) 143 135-145 [facility] [id number] 09:32:00 Test Item Value Reference Range Interpretation Comments Potassium Lvl (test code = Potassium 3.4 3.5-5.1 Lvl) [facility]aleCelt[facility] Therapeutics HoldingsCRITICAL ACCESS HOSPITALRGIPM1276-76-89 09:32:00 Test Item Value Reference Range Interpretation Comments Chloride Lvl (test code = Chloride Lvl) 107 95-109 [facility] HospitalLovejuice [id number] 09:32:00 Test Item Value Reference Range Interpretation Comments CO2 (test code = CO2) 29 24-32 [facility] [id number] 09:32:00 Test Item Value Reference Range Interpretation Comments Calcium Lvl (test code = Calcium Lvl) 8.3 8.5-10.5 [facility]2020-06-28 09:32:00 Test Item Value Reference Range Interpretation Comments AGAP (test code = AGAP) 10.4 10.0-20.0 [facility]2020-06-28 09:32:00 Test Item Value Reference Range Interpretation Comments eGFR (test code = eGFR) 91 [facility]manBzytlxrXCJSUAWVDO8827-98-26 09:32:00 Test Item Value Reference Range Interpretation Comments WBC (test code = WBC) 10.2 3.7-10.4 [facility]manWcnqqkwCNWINPLMYT8209-31-40 09:32:00 Test Item Value Reference Range Interpretation Comments RBC (test code = RBC) 4.57 4.20-5.40 [facility]manGjusfccYDNZKHXVRJ4118-34-14 09:32:00 Test Item Value Reference Range Interpretation Comments Hgb (test code = Hgb) 13.6 12.0-16.0 [place] 085390-06-28 09:32:00 Test Item Value Reference Range Interpretation Comments Hct (test code = Hct) 41.4 36.0-48.0 [facility]manOwqdtfpGCUVZOOZYE4895-72-12 09:32:00 Test Item Value Reference Range Interpretation Comments MCV (test code = MCV) 90.4 80.0-98.0 [facility]manZoojvveQFRLYRFCVQ0645-90-66 09:32:00 Test Item Value Reference Range Interpretation Comments MCH (test code = MCH) 29.8 pg 27.0-31.0 [facility]manDxmipkwXNAHZJWEKA6592-95-90 09:32:00 Test Item Value Reference Range Interpretation Comments MCHC (test code = MCHC) 32.9 32.0-36.0 [facility]manKgjqknuTEUJKVDWCF1270-50-08 09:32:00 Test Item Value Reference Range Interpretation Comments RDW (test code = RDW) 16.7 11.5-14.5 [facility]manGwnpsnzWVJYKMJRYJ1475-12-21 09:32:00 Test Item Value Reference Range Interpretation Comments Platelet (test code = Platelet) 146 133-450 [facility]manBcnwrxzRXRAALUSGU7424-33-75 09:32:00 Test Item Value Reference Range Interpretation Comments MPV (test code = MPV) 9.8 7.4-10.4 [facility] HospitalLgohgopTDNKJR6389-30-43 09:18:00 Test Item Value Reference Range Interpretation Comments Trig (test code = Trig) 167 [facility] HospitalPbvmyeiCCOZNR9488-16-10 09:18:00 Test Item Value Reference Range Interpretation Comments Chol (test code = Chol) 151 [facility] HospitalEcwubbdBXGRFG6992-03-24 09:18:00 Test Item Value Reference Range Interpretation Comments HDL (test code = HDL) 50 [facility] HospitalWaysitkKSCDBD5306-67-11 09:18:00 Test Item Value Reference Range Interpretation Comments CHD Risk (test code = CHD Risk) 3.02 1 3.90-5.80 [facility] HospitalAankvpzGXQZNM2835-46-05 09:18:00 Test Item Value Reference Range Interpretation Comments LDL (Calculated) (test code = LDL 68 (Calculated)) [facility] HospitalFjnvmkfQJGCOX5493-98-39 09:18:00 Test Item Value Reference Range Interpretation Comments VLDL (test code = VLDL) 33 1 [facility] [id number] 09:18:00 Test Item Value Reference Range Interpretation Comments Hgb A1C (test code = Hgb A1C) 8.5 [facility] HospitalImtupkeHKHYOUHGOO7518-69-09 03:47:00 Test Item Value Reference Range Interpretation Comments Anti-Xa Low Molecular Heparin (test 0.45 code = Anti-Xa Low Molecular Heparin) [facility] HospitalLovejuice [id number] 12:04:00 Test Item Value Reference Range Interpretation Comments Glucose Lvl (test code = Glucose Lvl) 132 70-99 [facility] HospitalLovejuice [id number] 12:04:00 Test Item Value Reference Range Interpretation Comments BUN (test code = BUN) 19 7-22 [facility] HospitalLovejuice [id number] 12:04:00 Test Item Value Reference Range Interpretation Comments Creatinine Lvl (test code = Creatinine 0.76 0.50-1.40 Lvl) [facility] [id number] 12:04:00 Test Item Value Reference Range Interpretation Comments Sodium Lvl (test code = Sodium Lvl) 141 135-145 [facility] HospitalLovejuice [id number] 12:04:00 Test Item Value Reference Range Interpretation Comments Potassium Lvl (test code = Potassium 3.7 3.5-5.1 Lvl) [facility]2020-06-25 12:04:00 Test Item Value Reference Range Interpretation Comments Chloride Lvl (test code = Chloride Lvl) 108 95-109 [place] 808540-06-25 12:04:00 Test Item Value Reference Range Interpretation Comments CO2 (test code = CO2) 27 24-32 [place] [address]-06-25 12:04:00 Test Item Value Reference Range Interpretation Comments AGAP (test code = AGAP) 9.7 10.0-20.0 [place] 808540-06-25 12:04:00 Test Item Value Reference Range Interpretation Comments Calcium Lvl (test code = Calcium Lvl) 8.7 8.5-10.5 [place] 808540-06-25 12:04:00 Test Item Value Reference Range Interpretation Comments eGFR (test code = eGFR) 79 [facility]manYvzesmtYDKAFSZGQO4072-12-16 12:04:00 Test Item Value Reference Range Interpretation Comments Segs (test code = Segs) 90.7 45.0-75.0 [place] 085390-06-25 12:04:00 Test Item Value Reference Range Interpretation Comments Lymphocytes (test code = Lymphocytes) 6.4 20.0-40.0 [place] 085390-06-25 12:04:00 Test Item Value Reference Range Interpretation Comments Monocytes (test code = Monocytes) 2.1 2.0-12.0 [place] [address]-06-25 12:04:00 Test Item Value Reference Range Interpretation Comments Eosinophils (test code = 0.3 See_Comment [A utomated message] The Eosinophils) system which ge nerated this result tra nsmitted reference range : <=4.0. The reference r evelyn was not used to int erpret this result as normal/abnormal . [place] 085390-06-25 12:04:00 Test Item Value Reference Range Interpretation Comments Basophils (test code = 0.5 See_Comment [Aut omated message] The Basophils) system which ge nerated this result tra nsmitted reference range : <=1.0. The reference r evelyn was not used to int erpret this result as normal/abnormal . [place] 085390-06-25 12:04:00 Test Item Value Reference Range Interpretation Comments Neutrophils # (test code = Neutrophils 15.1 1.5-8.1 #) [facility]manNosycbbIYZTYCNWQU3374-72-18 12:04:00 Test Item Value Reference Range Interpretation Comments Lymphocytes # (test code = Lymphocytes 1.1 1.0-5.5 #) [facility]manXuayucuUHUIYGOEDZ8364-70-01 12:04:00 Test Item Value Reference Range Interpretation Comments Monocytes # (test code 0.3 See_Comment [Aut omated message] The = Monocytes #) system which generated this result tra nsmitted reference range : <=0.8. The reference r evelyn was not used to int erpret this result as normal/abnormal . [facility]manDlougpiWYFRUIAYIQ6339-91-20 12:04:00 Test Item Value Reference Range Interpretation Comments Basophils # (test code 0.1 See_Comment [Aut omated message] The = Basophils #) system which generated this result tra nsmitted reference range : <=0.2. The reference r evelyn was not used to int erpret this result as normal/abnormal . [facility]manSovxujoIYQYKBZABN1279-95-10 12:04:00 Test Item Value Reference Range Interpretation Comments WBC (test code = WBC) 16.7 3.7-10.4 [facility]manZggvpdcHYVDDEJEOA0718-32-19 12:04:00 Test Item Value Reference Range Interpretation Comments RBC (test code = RBC) 5.00 4.20-5.40 [facility]manUcnlcezANSDRTZLJL1326-75-16 12:04:00 Test Item Value Reference Range Interpretation Comments Hgb (test code = Hgb) 15.1 12.0-16.0 [facility]manPmdbmdoWKHZDROEKN7345-00-48 12:04:00 Test Item Value Reference Range Interpretation Comments Hct (test code = Hct) 45.1 36.0-48.0 [facility]manIujnxxdCZCYYRUNTI8641-22-54 12:04:00 Test Item Value Reference Range Interpretation Comments MCV (test code = MCV) 90.2 80.0-98.0 [facility]manQqtyvkdRXUFVDCXRY9611-24-93 12:04:00 Test Item Value Reference Range Interpretation Comments MCH (test code = MCH) 30.1 pg 27.0-31.0 [facility]manBeltaiuODVAZDOJQE4225-09-79 12:04:00 Test Item Value Reference Range Interpretation Comments MCHC (test code = MCHC) 33.4 32.0-36.0 [place] 085390-06-25 12:04:00 Test Item Value Reference Range Interpretation Comments RDW (test code = RDW) 16.3 11.5-14.5 [facility]manMlbhlqrKQAWVAFMPQ9926-46-52 12:04:00 Test Item Value Reference Range Interpretation Comments Platelet (test code = Platelet) 148 133-450 [facility]manNscvbvrGKSNCOZAZQ2071-84-61 12:04:00 Test Item Value Reference Range Interpretation Comments MPV (test code = MPV) 9.6 7.4-10.4 [facility]2020-06-24 16:14:00 Test Item Value Reference Range Interpretation Comments Glucose Lvl (test code = Glucose Lvl) 375 70-99 [facility]2020-06-24 16:14:00 Test Item Value Reference Range Interpretation Comments BUN (test code = BUN) 18 7-22 [facility]2020-06-24 16:14:00 Test Item Value Reference Range Interpretation Comments Creatinine Lvl (test code = Creatinine 0.96 0.50-1.40 Lvl) [facility]2020-06-24 16:14:00 Test Item Value Reference Range Interpretation Comments Sodium Lvl (test code = Sodium Lvl) 137 135-145 [place] 808540-06-24 16:14:00 Test Item Value Reference Range Interpretation Comments Potassium Lvl (test code = Potassium 4.3 3.5-5.1 Lvl) [facility]2020-06-24 16:14:00 Test Item Value Reference Range Interpretation Comments Chloride Lvl (test code = Chloride Lvl) 105 95-109 [facility]2020-06-24 16:14:00 Test Item Value Reference Range Interpretation Comments CO2 (test code = CO2) 26 24-32 [place] 808540-06-24 16:14:00 Test Item Value Reference Range Interpretation Comments AGAP (test code = AGAP) 10.3 10.0-20.0 [facility]2020-06-24 16:14:00 Test Item Value Reference Range Interpretation Comments Calcium Lvl (test code = Calcium Lvl) 8.8 8.5-10.5 [facility]2020-06-24 16:14:00 Test Item Value Reference Range Interpretation Comments eGFR (test code = eGFR) 59 [facility]manUbaedgbEYYKMSWCSE9667-56-57 09:51:00 Test Item Value Reference Range Interpretation Comments Segs (test code = Segs) 81.3 45.0-75.0 [place] 085390-06-24 09:51:00 Test Item Value Reference Range Interpretation Comments Lymphocytes (test code = Lymphocytes) 11.5 20.0-40.0 [place] 085390-06-24 09:51:00 Test Item Value Reference Range Interpretation Comments Monocytes (test code = Monocytes) 5.4 2.0-12.0 [place] 085390-06-24 09:51:00 Test Item Value Reference Range Interpretation Comments Eosinophils (test code = 0.8 See_Comment [A utomated message] The Eosinophils) system which ge nerated this result tra nsmitted reference range : <=4.0. The reference r evelyn was not used to int erpret this result as normal/abnormal . [place] 085390-06-24 09:51:00 Test Item Value Reference Range Interpretation Comments Basophils (test code = 1.0 See_Comment [Aut omated message] The Basophils) system which ge nerated this result tra nsmitted reference range : <=1.0. The reference r evelyn was not used to int erpret this result as normal/abnormal . [facility]manFapvminWOGYUIKIVU6328-93-13 09:51:00 Test Item Value Reference Range Interpretation Comments Neutrophils # (test code = Neutrophils 15.8 1.5-8.1 #) [place] 085390-06-24 09:51:00 Test Item Value Reference Range Interpretation Comments Lymphocytes # (test code = Lymphocytes 2.2 1.0-5.5 #) [place] 085390-06-24 09:51:00 Test Item Value Reference Range Interpretation Comments Monocytes # (test code 1.1 See_Comment [Aut omated message] The = Monocytes #) system which generated this result tra nsmitted reference range : <=0.8. The reference r evelyn was not used to int erpret this result as normal/abnormal . [facility]manQwsuunwZUCAWAKXLK1571-82-26 09:51:00 Test Item Value Reference Range Interpretation Comments Eosinophils # (test code 0.2 See_Comment [A utomated message] The = Eosinophils #) system whic h generated this result tra nsmitted reference range : <=0.5. The reference r evelyn was not used to int erpret this result as normal/abnormal . [facility]manKoggzscNOIELMWDQW9826-91-34 09:51:00 Test Item Value Reference Range Interpretation Comments Basophils # (test code 0.2 See_Comment [Aut omated message] The = Basophils #) system which generated this result tra nsmitted reference range : <=0.2. The reference r evelyn was not used to int erpret this result as normal/abnormal . [facility]manPcfxfbpRIJVESCLWG3663-05-33 09:51:00 Test Item Value Reference Range Interpretation Comments WBC (test code = WBC) 19.4 3.7-10.4 [facility]manYjghauzGLXGXTDFQK3693-60-70 09:51:00 Test Item Value Reference Range Interpretation Comments RBC (test code = RBC) 5.40 4.20-5.40 [facility]manBwxdtptSKGINAILBR1191-21-61 09:51:00 Test Item Value Reference Range Interpretation Comments Hgb (test code = Hgb) 16.1 12.0-16.0 [facility]manIwfxmfcVGHRFYCMVU0807-84-23 09:51:00 Test Item Value Reference Range Interpretation Comments Hct (test code = Hct) 49.1 36.0-48.0 [facility]manKlcuwroRIZSJIKPSG3006-80-71 09:51:00 Test Item Value Reference Range Interpretation Comments MCV (test code = MCV) 91.0 80.0-98.0 [facility]manZvtsewwLGQOHQPGCA5282-24-82 09:51:00 Test Item Value Reference Range Interpretation Comments MCH (test code = MCH) 29.9 pg 27.0-31.0 [facility]manAendxcsFXZBKCFROF8159-80-63 09:51:00 Test Item Value Reference Range Interpretation Comments MCHC (test code = MCHC) 32.9 32.0-36.0 [facility]manWlwiydvBFVZHQQEGS8468-71-44 09:51:00 Test Item Value Reference Range Interpretation Comments RDW (test code = RDW) 16.7 11.5-14.5 [place] 085390-06-24 09:51:00 Test Item Value Reference Range Interpretation Comments Platelet (test code = Platelet) 168 133-450 [facility]manGopohuqJOOYQPFBSX9203-58-32 09:51:00 Test Item Value Reference Range Interpretation Comments MPV (test code = MPV) 9.8 7.4-10.4 [facility]annCARDIAC GXFHOFZ4202-87-15 02:28:00 Test Item Value Reference Range Interpretation Comments Troponin-I (test code 0.04 See_Comment [Auto mated message] The = Troponin-I) system which g enerated this result transmit porsche reference range : <=0.40. The reference r evelyn was not used to interpr et this result as alexia l/abnormal. [facility]CHE[facility] [id number] 02:28:00 Test Item Value Reference Range Interpretation Comments Lactic Acid Lvl (test code = Lactic 1.7 0.5-2.2 Acid Lvl) [facility]valeXzwhmkuWTEUVKOVMQ9525-55-22 16:05:00 Test Item Value Reference Range Interpretation Comments Coronavirus (COVID-19) Not Detected (11/22/19 BRANDON (test code = 11:05 AM) Coronavirus (COVID-19) BRANDON) [facility]CHEM [id number] 12:35:00 Test Item Value Reference Range Interpretation Comments Lactic Acid Lvl (test code = Lactic 2.6 0.5-2.2 Acid Lvl) [facility] AND [id number] 12:20:00 Test Item Value Reference Range Interpretation Comments UA Color (test code = Veronique *ABN*(11/22/19 UA Color) 7:20 AM) [facility] [id number] 12:20:00 Test Item Value Reference Range Interpretation Comments UA Turbidity (test code Slight *ABN*(11/22/19 = UA Turbidity) 7:20 AM) [facility] [id number] 12:20:00 Test Item Value Reference Range Interpretation Comments UA Spec Grav (test code = UA Spec 1.035 1 Grav) [facility] [id number] 12:20:00 Test Item Value Reference Range Interpretation Comments UA pH (test code = UA pH) 5.0 1 5.0-8.0 [facility] [id number] 12:20:00 Test Item Value Reference Range Interpretation Comments UA Protein (test code = UA Protein) 30 mg/dL [facility] AND [id number] 12:20:00 Test Item Value Reference Range Interpretation Comments UA Ketones (test code = UA Negative mg/dL Ketones) [facility] AND [id number] 12:20:00 Test Item Value Reference Range Interpretation Comments UA Bili (test code = Negative *NA*(11/22/19 UA Bili) 7:20 AM) [facility] AND [id number] 12:20:00 Test Item Value Reference Range Interpretation Comments UA Blood (test code = Negative (11/22/19 7:20 UA Blood) AM) [facility] AND [id number] 12:20:00 Test Item Value Reference Range Interpretation Comments UA Urobilinogen (test code = UA 2.0 0.1-1.0 Urobilinogen) [facility] AND [id number] 12:20:00 Test Item Value Reference Range Interpretation Comments UA Nitrite (test code Negative (11/22/19 7:20 = UA Nitrite) AM) [facility] AND [id number] 12:20:00 Test Item Value Reference Range Interpretation Comments UA Leuk Est (test Negative (11/22/19 7:20 code = UA Leuk Est) AM) [facility] AND [id number] 12:20:00 Test Item Value Reference Range Interpretation Comments UA WBC (test code = 1 See_Comment [Automa porsche message] The UA WBC) system which ge nerated this result transmit porsche reference range : <=5. The reference range was not used to interpr et this result as alexia l/abnormal. [facility] AND [id number] 12:20:00 Test Item Value Reference Range Interpretation Comments UA RBC (test code = 7 See_Comment [Automa porsche message] The UA RBC) system which ge nerated this result transmit porsche reference range : <=2. The reference range was not used to interpr et this result as alexia l/abnormal. [facility] AND [id number] 12:20:00 Test Item Value Reference Range Interpretation Comments UA Mucus (test code = UA Mucus) Few /LPF [facility] AND [id number] 12:20:00 Test Item Value Reference Range Interpretation Comments UA Hyal Cast (test 4 See_Comment [Automat ed message] The code = UA Hyal Cast) system which generated this result transmit porsche reference range : <=2. The reference range was not used to interpr et this result as alexia l/abnormal. [facility]2020-06-23 12:20:00 Test Item Value Reference Range Interpretation Comments UA Sq Epi (test code = UA Sq Epi) None Seen [facility]2020-06-23 12:20:00 Test Item Value Reference Range Interpretation Comments UA Glucose (test code = UA Glucose) 50mg/dl [place] 085390-06-23 11:40:57 Test Item Value Reference Range Interpretation Comments ACT (TEG) Rapid (test code = ACT (TEG) 89 s 86-118 Rapid) [facility]manXflbggdNVYKDXYUUR8417-66-96 11:40:57 Test Item Value Reference Range Interpretation Comments Split Point Rapid (test code = Split 0.3 min Point Rapid) [facility]manMrsmshwOHIYVJTZQN9480-53-61 11:40:57 Test Item Value Reference Range Interpretation Comments R-time Rapid (test code = R-time 0.4 min 0.4-0.7 Rapid) [facility]manZuqqbjuKWBYQWBNWV9494-51-91 11:40:57 Test Item Value Reference Range Interpretation Comments K-time Rapid (test code = K-time 1.3 min 0.6-2.3 Rapid) [facility]manXcrpzivDRVZGUDELI1435-48-71 11:40:57 Test Item Value Reference Range Interpretation Comments Angle Rapid (test code = Angle 75 degrees 64-80 Rapid) [facility]manKrstcgjQSKKROOSNV4180-98-10 11:40:57 Test Item Value Reference Range Interpretation Comments Max Amplitude Rapid (test code = Max 64 mm 52-71 Amplitude Rapid) [place] 085390-06-23 11:40:57 Test Item Value Reference Range Interpretation Comments G-value Rapid (test code = G-value 9.0 5.0-11.6 Rapid) [facility]manVpgryinBBSQEIKRTX6938-74-26 11:40:57 Test Item Value Reference Range Interpretation Comments Estimated % Lysis Rapid 0.0 See_Comment [Au tomated message] The (test code = Estimated syste m which generated % Lysis Rapid) this result t ransmitted reference range : <=7.5. The reference r evelyn was not used to int erpret this result as normal/abnormal . [facility]manFphxflrNEWQTYLJJH6129-82-66 11:40:57 Test Item Value Reference Range Interpretation Comments RBC Morph (test code = Normal (11/22/19 6:40 RBC Morph) AM) [facility]manYiqokqdQWDGJDUYBA3072-72-04 11:40:57 Test Item Value Reference Range Interpretation Comments Large Plt (test code = Large Plt) Slight [place] 085390-06-23 11:40:57 Test Item Value Reference Range Interpretation Comments PT (test code = PT) 12.4 s 12.0-14.7 [place] [address]-06-23 11:40:57 Test Item Value Reference Range Interpretation Comments INR (test code = INR) 0.92 1 0.85-1.17 [place] [address]-06-23 11:40:57 Test Item Value Reference Range Interpretation Comments PTT (test code = PTT) 25.1 s 22.9-35.8 [place] [address]-06-23 11:40:57 Test Item Value Reference Range Interpretation Comments Plt Morph (test code = Normal (11/22/19 6:40 Plt Morph) AM) [facility]manXxsxvgtVVYZIHKFJP3823-01-19 11:40:57 Test Item Value Reference Range Interpretation Comments Segs (test code = Segs) 77.5 45.0-75.0 [place] [address]-06-23 11:40:57 Test Item Value Reference Range Interpretation Comments Lymphocytes (test code = Lymphocytes) 14.2 20.0-40.0 [place] [address]-06-23 11:40:57 Test Item Value Reference Range Interpretation Comments Monocytes (test code = Monocytes) 6.8 2.0-12.0 [place] [address]-06-23 11:40:57 Test Item Value Reference Range Interpretation Comments Eosinophils (test code = 0.2 See_Comment [A utomated message] The Eosinophils) system which ge nerated this result tra nsmitted reference range : <=4.0. The reference r evelyn was not used to int erpret this result as normal/abnormal . [place] [address]-06-23 11:40:57 Test Item Value Reference Range Interpretation Comments Basophils (test code = 1.3 See_Comment [Aut omated message] The Basophils) system which ge nerated this result tra nsmitted reference range : <=1.0. The reference r evelyn was not used to int erpret this result as normal/abnormal . [facility] HospitalVdrakcoJQRFRRTCER4020-76-99 11:40:57 Test Item Value Reference Range Interpretation Comments Neutrophils # (test code = Neutrophils 16.9 1.5-8.1 #) [facility]FMK9715[facility]-78 11:40:57 Test Item Value Reference Range Interpretation Comments Lymphocytes # (test code = Lymphocytes 3.1 1.0-5.5 #) [facility]89 11:40:57 Test Item Value Reference Range Interpretation Comments Monocytes # (test code 1.5 See_Comment [Aut omated message] The = Monocytes #) system which generated this result tra nsmitted reference range : <=0.8. The reference r evelyn was not used to int erpret this result as normal/abnormal . [facility]WgzgxntDXCHACPGNQ8148-17-35 11:40:57 Test Item Value Reference Range Interpretation Comments Eosinophils # (test code 0.1 See_Comment [A utomated message] The = Eosinophils #) system whic h generated this result tra nsmitted reference range : <=0.5. The reference r evelyn was not used to int erpret this result as normal/abnormal . [facility] HospitalNcriqhzQYKMLFDEUD4018-41-88 11:40:57 Test Item Value Reference Range Interpretation Comments Basophils # (test code 0.3 See_Comment [Aut omated message] The = Basophils #) system which generated this result tra nsmitted reference range : <=0.2. The reference r evelyn was not used to int erpret this result as normal/abnormal . [facility] [employer] [id number] 10:56:00 Test Item Value Reference Range Interpretation Comments ABO/Rh (test code = ABO/Rh) O POS [facility] [employer] [id number] 10:56:00 Test Item Value Reference Range Interpretation Comments Antibody Scrn (test Negative (11/22/19 5:56 code = Antibody Scrn) AM) [facility] HospitalReedsyPQDZNWO9900-18-46 10:52:45 Test Item Value Reference Range Interpretation Comments Total CK (test code = Total CK) 840 12-191 [facility]Event[facility] RUCBNNZ9764-65-61 10:52:33 Test Item Value Reference Range Interpretation Comments Troponin-I (test code 0.05 See_Comment [Auto mated message] The = Troponin-I) system which g enerated this result transmit porsche reference range : <=0.40. The reference r evelyn was not used to interpr et this result as alexia l/abnormal. [facility]2020-06-23 10:52:33 Test Item Value Reference Range Interpretation Comments Total Protein (test code = Total 5.8 6.4-8.4 Protein) [facility]2020-06-23 10:52:33 Test Item Value Reference Range Interpretation Comments Albumin Lvl (test code = Albumin Lvl) 2.4 3.5-5.0 [place] 808540-06-23 10:52:33 Test Item Value Reference Range Interpretation Comments ASPARTATE TRANSAMINASE 355 See_Comment [Aut omated message] (test code = ASPARTATE The s ystem which TRANSAMINASE) generated this result transmitted ref erence range: <=37. Th e reference range was not used to interpr et this result as normal/abnormal . [facility] HospitalLovejuice [id number] 10:52:33 Test Item Value Reference Range Interpretation Comments Alk Phos (test code = Alk Phos) 102 39-136 [facility]2020-06-23 10:52:33 Test Item Value Reference Range Interpretation Comments Bili Total (test code = Bili Total) 1.2 0.2-1.3 [facility]2020-06-23 10:52:33 Test Item Value Reference Range Interpretation Comments Bili Direct (test code 0.3 See_Comment [Aut omated message] The = Bili Direct) system which generated this result tra nsmitted reference range : <=0.3. The reference r evelyn was not used to int erpret this result as alexia l/abnormal. [facility] HospitalLovejuice [id number] 10:52:33 Test Item Value Reference Range Interpretation Comments Bili Indirect (test 0.9 See_Comment [Automa porsche message] The code = Bili Indirect) system which generated this result tra nsmitted reference range : <=1.0. The reference r evelyn was not used to int erpret this result as normal/abnormal . [facility]aleNavendis LCWXK4780-00-00 10:52:33 Test Item Value Reference Range Interpretation Comments Globulin (test code = Globulin) 3.4 2.7-4.2 [facility]2020-06-23 10:52:33 Test Item Value Reference Range Interpretation Comments A/G Ratio (test code = A/G Ratio) 0.7 1 0.7-1.6 [facility]2020-06-23 10:52:33 Test Item Value Reference Range Interpretation Comments ALT (test code = ALT) 155 See_Comment [Auto mated message] The system which ge nerated this result transmit porsche reference range : <=65. The reference range was not used to interpr et this result as alexia l/abnormal. [facility]manGhvgzdyEMLFKFHFOC4949-54-36 17:02:00 Test Item Value Reference Range Interpretation Comments Segs (test code = Segs) 60.1 45.0-75.0 [facility]manUxaaawwYJDFDAKRKO5366-42-57 17:02:00 Test Item Value Reference Range Interpretation Comments Lymphocytes (test code = Lymphocytes) 32.3 20.0-40.0 [facility]manYtmzzebYBLMBKTHHY2960-95-11 17:02:00 Test Item Value Reference Range Interpretation Comments Monocytes (test code = Monocytes) 5.9 2.0-12.0 [facility]manTnxfwhbPZNRHEUXQN0636-55-56 17:02:00 Test Item Value Reference Range Interpretation Comments Eosinophils (test code = 0.7 See_Comment [A utomated message] The Eosinophils) system which ge nerated this result tra nsmitted reference range : <=4.0. The reference r evelyn was not used to int erpret this result as normal/abnormal . [facility]manMbfyrgqQDZWMRAKBJ3342-95-30 17:02:00 Test Item Value Reference Range Interpretation Comments Basophils (test code = 1.0 See_Comment [Aut omated message] The Basophils) system which ge nerated this result tra nsmitted reference range : <=1.0. The reference r evelyn was not used to int erpret this result as normal/abnormal . [facility]PadbmrgHDFJSOUHNK8372-48-89 17:02:00 Test Item Value Reference Range Interpretation Comments Neutrophils # (test code = Neutrophils 4.3 1.5-8.1 #) [facility]manWqsglgrNLSFGKVKKF1095-23-89 17:02:00 Test Item Value Reference Range Interpretation Comments Lymphocytes # (test code = Lymphocytes 2.3 1.0-5.5 #) [facility]QcdbmqyWXQHVPPSLZ1063-22-92 17:02:00 Test Item Value Reference Range Interpretation Comments Monocytes # (test code 0.4 See_Comment [Aut omated message] The = Monocytes #) system which generated this result tra nsmitted reference range : <=0.8. The reference r evelyn was not used to int erpret this result as normal/abnormal . [facility]manYwhkkusDOMDBSHBRT7149-03-06 17:02:00 Test Item Value Reference Range Interpretation Comments Basophils # (test code 0.1 See_Comment [Aut omated message] The = Basophils #) system which generated this result tra nsmitted reference range : <=0.2. The reference r evelyn was not used to int erpret this result as normal/abnormal . [facility]manFufwhjuEHCRQIHJLU1463-38-39 17:02:00 Test Item Value Reference Range Interpretation Comments Sed Rate (test code = 2 See_Comment [Auto mated message] The Sed Rate) system which ge nerated this result transmit porsche reference range : <=20. The reference range was not used to interpr et this result as alexia l/abnormal. [facility]manIbgrkfiHOXUFBPLTM6748-37-37 17:02:00 Test Item Value Reference Range Interpretation Comments WBC (test code = WBC) 7.2 3.7-10.4 [facility]manScgsjetXFXIXFZRMY9769-82-08 17:02:00 Test Item Value Reference Range Interpretation Comments RBC (test code = RBC) 3.76 4.20-5.40 [facility]manCgxevrkSFBLEDGQGD1821-12-88 17:02:00 Test Item Value Reference Range Interpretation Comments Hgb (test code = Hgb) 12.1 12.0-16.0 [facility]manLmxaompWTXLSRGKOL5948-12-99 17:02:00 Test Item Value Reference Range Interpretation Comments Hct (test code = Hct) 36.8 36.0-48.0 [facility]manJxdahimFEKRCTCUNM8447-42-83 17:02:00 Test Item Value Reference Range Interpretation Comments MCV (test code = MCV) 97.9 80.0-98.0 [facility]manSscldocTCCAUDOEXB0105-24-98 17:02:00 Test Item Value Reference Range Interpretation Comments MCH (test code = MCH) 32.1 pg 27.0-31.0 [facility]manJnawtabZURUQOEBCE9254-79-10 17:02:00 Test Item Value Reference Range Interpretation Comments MCHC (test code = MCHC) 32.8 32.0-36.0 [facility] HospitalUkbifxhLOIXWYTDJD7386-52-30 17:02:00 Test Item Value Reference Range Interpretation Comments RDW (test code = RDW) 16.7 11.5-14.5 [facility] HospitalNevcjafHPIBMNDIUA0410-69-86 17:02:00 Test Item Value Reference Range Interpretation Comments Platelet (test code = Platelet) 131 133-450 [facility] HospitalTxcsnhaEIFQKGQRQX6797-77-89 17:02:00 Test Item Value Reference Range Interpretation Comments MPV (test code = MPV) 8.9 7.4-10.4 [facility] HospitalWkphhzoIVKKZVKWXQ0340-39-05 17:02:00 Test Item Value Reference Range Interpretation Comments C-REACTIVE PROTEIN (test code = no gt C-REACTIVE PROTEIN) [facility] [employer] [id number] 12:49:00 Test Item Value Reference Range Interpretation Comments ABO/Rh (test code = ABO/Rh) O POS [facility] [employer] [id number] 12:49:00 Test Item Value Reference Range Interpretation Comments Antibody Scrn (test Negative (02/26/19 7:49 code = Antibody Scrn) AM) [facility] HospitalHfdlgooGUZVJFSIGC4366-52-70 09:11:00 Test Item Value Reference Range Interpretation Comments Segs (test code = Segs) 67.8 45.0-75.0 [facility] HospitalYzlkpwzQLXAOBNEAI9118-11-83 09:11:00 Test Item Value Reference Range Interpretation Comments Lymphocytes (test code = Lymphocytes) 22.9 20.0-40.0 [facility]aleBjbaxbvRITWWUSPGE9863-00-91 09:11:00 Test Item Value Reference Range Interpretation Comments Monocytes (test code = Monocytes) 7.8 2.0-12.0 [facility]valeBppnyraTUFCSYNVTJ5728-14-32 09:11:00 Test Item Value Reference Range Interpretation Comments Eosinophils (test code = 0.4 See_Comment [A utomated message] The Eosinophils) system which ge nerated this result tra nsmitted reference range : <=4.0. The reference r evelyn was not used to int erpret this result as normal/abnormal . [facility] HospitalTxnwqldHOXMLQAPID4704-47-25 09:11:00 Test Item Value Reference Range Interpretation Comments Basophils (test code = 1.1 See_Comment [Aut omated message] The Basophils) system which ge nerated this result tra nsmitted reference range : <=1.0. The reference r evelyn was not used to int erpret this result as normal/abnormal . [facility]manYdclqgxFKKLKNZDOY1850-39-45 09:11:00 Test Item Value Reference Range Interpretation Comments Neutrophils # (test code = Neutrophils 6.3 1.5-8.1 #) [facility]manZfbuukuHQVRCOTSUV9528-29-27 09:11:00 Test Item Value Reference Range Interpretation Comments Lymphocytes # (test code = Lymphocytes 2.1 1.0-5.5 #) [facility]manIkhhmrbLHBTCRPPEZ6802-50-25 09:11:00 Test Item Value Reference Range Interpretation Comments Monocytes # (test code 0.7 See_Comment [Aut omated message] The = Monocytes #) system which generated this result tra nsmitted reference range : <=0.8. The reference r evelyn was not used to int erpret this result as normal/abnormal . [facility]manNmexfqiODWOMNAZMX7907-41-01 09:11:00 Test Item Value Reference Range Interpretation Comments Basophils # (test code 0.1 See_Comment [Aut omated message] The = Basophils #) system which generated this result tra nsmitted reference range : <=0.2. The reference r evelyn was not used to int erpret this result as normal/abnormal . [facility]manKaertzdHCQORHTBVL4173-65-31 09:11:00 Test Item Value Reference Range Interpretation Comments Macrocyte (test code = 1+ *ABN*(02/25/19 Macrocyte) 4:11 AM) [facility]manUlgomheNRJXKHEUUX1173-26-51 09:11:00 Test Item Value Reference Range Interpretation Comments WBC (test code = WBC) 9.2 3.7-10.4 [facility]manZcpbxhwYHYDXWKSLR5174-29-23 09:11:00 Test Item Value Reference Range Interpretation Comments RBC (test code = RBC) 3.50 4.20-5.40 [facility]manCvsfhdcWWJTDWHSVT3815-43-68 09:11:00 Test Item Value Reference Range Interpretation Comments Hgb (test code = Hgb) 11.5 12.0-16.0 [facility]manRxahsrnLEYUAPIQMD6362-28-29 09:11:00 Test Item Value Reference Range Interpretation Comments Hct (test code = Hct) 35.5 36.0-48.0 [facility]manYmgjikkZRKVDIREGN5702-78-95 09:11:00 Test Item Value Reference Range Interpretation Comments MCV (test code = MCV) 101.5 80.0-98.0 [facility]manCrcnisdXBAEHHBDRW4399-55-28 09:11:00 Test Item Value Reference Range Interpretation Comments MCH (test code = MCH) 32.7 pg 27.0-31.0 [facility]manEyuaifxEJJIFTKHJU9829-52-31 09:11:00 Test Item Value Reference Range Interpretation Comments MCHC (test code = MCHC) 32.2 32.0-36.0 [facility]manYknyjkmGIZDZETKWU5175-96-19 09:11:00 Test Item Value Reference Range Interpretation Comments RDW (test code = RDW) 17.4 11.5-14.5 [facility]manEmjgrzkNYSSPIPUNC4864-14-81 09:11:00 Test Item Value Reference Range Interpretation Comments Platelet (test code = Platelet) 120 133-450 [facility]manOpooqhoXWAOWRXIKX5883-30-24 09:11:00 Test Item Value Reference Range Interpretation Comments MPV (test code = MPV) 9.2 7.4-10.4 [facility]2019-09-24 10:17:00 Test Item Value Reference Range Interpretation Comments Glucose Lvl (test code = Glucose Lvl) 143 70-99 [facility]2019-09-24 10:17:00 Test Item Value Reference Range Interpretation Comments BUN (test code = BUN) 20 7-22 [facility]2019-09-24 10:17:00 Test Item Value Reference Range Interpretation Comments Creatinine Lvl (test code = Creatinine 0.89 0.50-1.40 Lvl) [facility]2019-09-24 10:17:00 Test Item Value Reference Range Interpretation Comments Sodium Lvl (test code = Sodium Lvl) 143 135-145 [facility]2019-09-24 10:17:00 Test Item Value Reference Range Interpretation Comments Potassium Lvl (test code = Potassium 4.3 3.5-5.1 Lvl) [facility]2019-09-24 10:17:00 Test Item Value Reference Range Interpretation Comments Chloride Lvl (test code = Chloride Lvl) 107 95-109 [facility]2019-09-24 10:17:00 Test Item Value Reference Range Interpretation Comments CO2 (test code = CO2) 27 24-32 [facility]2019-09-24 10:17:00 Test Item Value Reference Range Interpretation Comments AGAP (test code = AGAP) 13.3 10.0-20.0 [facility]2019-09-24 10:17:00 Test Item Value Reference Range Interpretation Comments Calcium Lvl (test code = Calcium Lvl) 8.9 8.5-10.5 [facility]2019-09-24 10:17:00 Test Item Value Reference Range Interpretation Comments eGFR (test code = eGFR) 65 [facility]manMtpjnjaBGRLILFPNV1902-25-24 10:17:00 Test Item Value Reference Range Interpretation Comments Segs (test code = Segs) 63.7 45.0-75.0 [facility]manRygwgrlKDQZSKNWKY1696-49-95 10:17:00 Test Item Value Reference Range Interpretation Comments Lymphocytes (test code = Lymphocytes) 26.8 20.0-40.0 [facility]manAvxvrmmBNISYJQGAO7551-96-99 10:17:00 Test Item Value Reference Range Interpretation Comments Monocytes (test code = Monocytes) 8.0 2.0-12.0 [facility]manGjfbvptXBPHEPLKIA5192-28-84 10:17:00 Test Item Value Reference Range Interpretation Comments Eosinophils (test code = 0.4 See_Comment [A utomated message] The Eosinophils) system which ge nerated this result tra nsmitted reference range : <=4.0. The reference r evelyn was not used to int erpret this result as normal/abnormal . [facility]manTqlmcexTWXNQCKKFU6458-10-72 10:17:00 Test Item Value Reference Range Interpretation Comments Basophils (test code = 1.1 See_Comment [Aut omated message] The Basophils) system which ge nerated this result tra nsmitted reference range : <=1.0. The reference r evelyn was not used to int erpret this result as normal/abnormal . [facility]manRntjylfPWWTGXMZQM0849-71-84 10:17:00 Test Item Value Reference Range Interpretation Comments Neutrophils # (test code = Neutrophils 6.4 1.5-8.1 #) [facility]manRnscjfdHJPZGDKUIM9552-01-94 10:17:00 Test Item Value Reference Range Interpretation Comments Lymphocytes # (test code = Lymphocytes 2.7 1.0-5.5 #) [facility]manAufhzzpPFVCWXLWUX7919-34-59 10:17:00 Test Item Value Reference Range Interpretation Comments Monocytes # (test code 0.8 See_Comment [Aut omated message] The = Monocytes #) system which generated this result tra nsmitted reference range : <=0.8. The reference r evelyn was not used to int erpret this result as normal/abnormal . [facility]manSdhfstvJXWPKWJYWR9985-95-92 10:17:00 Test Item Value Reference Range Interpretation Comments Basophils # (test code 0.1 See_Comment [Aut omated message] The = Basophils #) system which generated this result tra nsmitted reference range : <=0.2. The reference r evelyn was not used to int erpret this result as normal/abnormal . [facility]manPcwntedAIWAHXFLYO3425-49-76 10:17:00 Test Item Value Reference Range Interpretation Comments WBC (test code = WBC) 10.1 3.7-10.4 [facility]manKwwnywwBWHZBYNPER0578-37-65 10:17:00 Test Item Value Reference Range Interpretation Comments RBC (test code = RBC) 3.93 4.20-5.40 [facility]manSsyomlxOQDQSMTZLU1951-78-99 10:17:00 Test Item Value Reference Range Interpretation Comments Hgb (test code = Hgb) 12.7 12.0-16.0 [facility]manHdrehzdTJNNWSWTLY4791-80-59 10:17:00 Test Item Value Reference Range Interpretation Comments Hct (test code = Hct) 38.8 36.0-48.0 [facility]manJsratqkNPKITPDOPT5452-56-68 10:17:00 Test Item Value Reference Range Interpretation Comments MCV (test code = MCV) 98.9 80.0-98.0 [facility]manBjelokfMRCBGMPDTT9182-92-15 10:17:00 Test Item Value Reference Range Interpretation Comments MCH (test code = MCH) 32.4 pg 27.0-31.0 [facility]manBrzyjxuKMDLJLETQQ9544-78-10 10:17:00 Test Item Value Reference Range Interpretation Comments MCHC (test code = MCHC) 32.7 32.0-36.0 [facility]manPihrdopEZLQYFCHBR2271-76-83 10:17:00 Test Item Value Reference Range Interpretation Comments RDW (test code = RDW) 17.3 11.5-14.5 [facility]manUqmqhnpPSMHGGJDSB9079-15-31 10:17:00 Test Item Value Reference Range Interpretation Comments Platelet (test code = Platelet) 189 133-450 [facility]manQbsmbxaOCEODEBOKH3683-57-30 10:17:00 Test Item Value Reference Range Interpretation Comments MPV (test code = MPV) 9.8 7.4-10.4 [facility]2019-09-23 10:59:00 Test Item Value Reference Range Interpretation Comments Glucose Lvl (test code = Glucose Lvl) 95 70-99 [facility]2019-09-23 10:59:00 Test Item Value Reference Range Interpretation Comments BUN (test code = BUN) 18 7-22 [facility]2019-09-23 10:59:00 Test Item Value Reference Range Interpretation Comments Creatinine Lvl (test code = Creatinine 0.77 0.50-1.40 Lvl) [facility]2019-09-23 10:59:00 Test Item Value Reference Range Interpretation Comments Sodium Lvl (test code = Sodium Lvl) 143 135-145 [facility]2019-09-23 10:59:00 Test Item Value Reference Range Interpretation Comments Potassium Lvl (test code = Potassium 4.1 3.5-5.1 Lvl) [facility]2019-09-23 10:59:00 Test Item Value Reference Range Interpretation Comments Chloride Lvl (test code = Chloride Lvl) 109 95-109 [facility]2019-09-23 10:59:00 Test Item Value Reference Range Interpretation Comments CO2 (test code = CO2) 26 24-32 [facility]2019-09-23 10:59:00 Test Item Value Reference Range Interpretation Comments Calcium Lvl (test code = Calcium Lvl) 8.5 8.5-10.5 [facility]2019-09-23 10:59:00 Test Item Value Reference Range Interpretation Comments eGFR (test code = eGFR) 78 [facility]2019-09-23 10:59:00 Test Item Value Reference Range Interpretation Comments AGAP (test code = AGAP) 12.1 10.0-20.0 [facility]2019-09-23 10:59:00 Test Item Value Reference Range Interpretation Comments Magnesium Lvl (test code = Magnesium 2.0 1.8-2.4 Lvl) [facility]2019-09-23 10:59:00 Test Item Value Reference Range Interpretation Comments Phosphorus (test code = Phosphorus) 3.5 2.5-4.5 [facility]JrraljaSRTRILPYMVJK2249-56-55 09:46:00 Test Item Value Reference Range Interpretation Comments AGAP (test code = AGAP) 11.1 10.0-20.0 [facility] MichiganYqodywlZIWAJBBMPTCO7368-68-54 09:46:00 Test Item Value Reference Range Interpretation Comments Glucose Lvl (test code = Glucose Lvl) 73 70-99 [facility] MichiganIuwlcefSFACVAZDCUTZ6178-42-97 09:46:00 Test Item Value Reference Range Interpretation Comments BUN (test code = BUN) 21 7-22 [facility] MichiganWrxbfgeJAFHKXBCPUSO2911-81-33 09:46:00 Test Item Value Reference Range Interpretation Comments Creatinine Lvl (test code = Creatinine 0.66 0.50-1.40 Lvl) [facility] MichiganHshexcrUORCVTLWGKJH3111-15-26 09:46:00 Test Item Value Reference Range Interpretation Comments Sodium Lvl (test code = Sodium Lvl) 140 135-145 [facility] MichiganZvhhsznUSCJEQXOQWZW0245-59-83 09:46:00 Test Item Value Reference Range Interpretation Comments Potassium Lvl (test code = Potassium 4.1 3.5-5.1 Lvl) [facility] MichiganOorzregZUORGDFECQGD0647-35-74 09:46:00 Test Item Value Reference Range Interpretation Comments Chloride Lvl (test code = Chloride Lvl) 107 95-109 [facility] MichiganKevyryuHFGDWMSOGFWL0168-49-96 09:46:00 Test Item Value Reference Range Interpretation Comments CO2 (test code = CO2) 26 24-32 [facility] MichiganEmbbhksKHAYYSLZJQDL8823-18-82 09:46:00 Test Item Value Reference Range Interpretation Comments Calcium Lvl (test code = Calcium Lvl) 8.6 8.5-10.5 [facility] MichiganAoabgbhNSLUIDLUYHOY3421-48-52 09:46:00 Test Item Value Reference Range Interpretation Comments Albumin Lvl (test code = Albumin Lvl) 2.1 3.5-5.0 [facility] MichiganKozferdXHDKZXQRVVWU6523-47-35 09:46:00 Test Item Value Reference Range Interpretation Comments Phosphorus (test code = Phosphorus) 3.0 2.5-4.5 [facility] MichiganTiesfubHEJESPSAUTGK4966-41-79 09:46:00 Test Item Value Reference Range Interpretation Comments eGFR (test code = eGFR) 88 [facility]WdrfmedFZFEACGUWV8357-31-99 09:46:00 Test Item Value Reference Range Interpretation Comments Eosinophils # (test code 0.1 See_Comment [A utomated message] The = Eosinophils #) system whic h generated this result tra nsmitted reference range : <=0.5. The reference r evelyn was not used to int erpret this result as normal/abnormal . [facility] [id number] 08:45:00 Test Item Value Reference Range Interpretation Comments Magnesium Lvl (test code = Magnesium 2.4 1.8-2.4 Lvl) [facility]2019-09-20 08:45:00 Test Item Value Reference Range Interpretation Comments Phosphorus (test code = Phosphorus) 5.0 2.5-4.5 [id number] 08:45:00 Test Item Value Reference Range Interpretation Comments Bands (test code = 0.0 See_Comment [Automat ed message] The Bands) system which ge nerated this result transmit porsche reference range : <=11.0. The reference r evelyn was not used to interpr et this result as alexia l/abnormal. [id number] 08:45:00 Test Item Value Reference Range Interpretation Comments Myelocytes (test code = Myelocytes) 2.0 [id number] 08:45:00 Test Item Value Reference Range Interpretation Comments Atypical Lymphs (test code = Atypical 0.0 Lymphs) [id number] 08:45:00 Test Item Value Reference Range Interpretation Comments NRBC (test code = NRBC) 1 [facility]m[id number] 08:45:00 Test Item Value Reference Range Interpretation Comments Plt Morph (test code = Normal (02/18/19 3:45 Plt Morph) AM) [id number] 08:45:00 Test Item Value Reference Range Interpretation Comments Macrocyte (test code = 1+ *ABN*(02/18/19 Macrocyte) 3:45 AM) [facility]m[id number] 08:45:00 Test Item Value Reference Range Interpretation Comments Polychrom (test code = Polychrom) [facility] [place] [id number] 02:24:00 Test Item Value Reference Range Interpretation Comments Vanco Tr (test code = Vanco Tr) 18.8 [place] [id number] 02:24:00 Test Item Value Reference Range Interpretation Comments Vanco Tr TND (test code = Vanco Tr 2200 1 TND) [facility]m[id number] 07:22:00 Test Item Value Reference Range Interpretation Comments Bands (test code = 1.0 See_Comment [Automat ed message] The Bands) system which ge nerated this result transmit porsche reference range : <=11.0. The reference r evelyn was not used to interpr et this result as alexia l/abnormal. [facility]manKmmqytnDIMEHYWBFP2176-94-02 07:22:00 Test Item Value Reference Range Interpretation Comments Metamyelocytes (test code 2.0 See_Comment [ Automated message] = Metamyelocytes) The system which generated this result transmitted ref erence range: <=1.0. T he reference range was not used to int erpret this result as normal/abnormal . [facility]m[id number] 07:22:00 Test Item Value Reference Range Interpretation Comments Myelocytes (test code = Myelocytes) 3.0 [facility]manLfxfjmkGUVZXPTALE3697-21-10 07:22:00 Test Item Value Reference Range Interpretation Comments Atypical Lymphs (test code = Atypical 0.0 Lymphs) [id number] 16:09:00 Test Item Value Reference Range Interpretation Comments Eosinophils # (test code 0.2 See_Comment [A utomated message] The = Eosinophils #) system whic h generated this result tra nsmitted reference range : <=0.5. The reference r evelyn was not used to int erpret this result as normal/abnormal . [facility]m[id number] 16:09:00 Test Item Value Reference Range Interpretation Comments Bands (test code = 0.0 See_Comment [Automat ed message] The Bands) system which ge nerated this result transmit porsche reference range : <=11.0. The reference r evelyn was not used to interpr et this result as alexia l/abnormal. [facility]manOcitpaiUYQTYFKXSM0456-63-01 16:09:00 Test Item Value Reference Range Interpretation Comments Metamyelocytes (test code 1.0 See_Comment [ Automated message] = Metamyelocytes) The system which generated this result transmitted ref erence range: <=1.0. T he reference range was not used to int erpret this result as normal/abnormal . [facility]manWlgzwubFPAJYVVUBS3110-14-27 16:09:00 Test Item Value Reference Range Interpretation Comments Myelocytes (test code = Myelocytes) 1.0 [facility]m[id number] 16:09:00 Test Item Value Reference Range Interpretation Comments Atypical Lymphs (test code = Atypical 0.0 Lymphs) [id number] 16:09:00 Test Item Value Reference Range Interpretation Comments Anisocyte (test code = 2+ *ABN*(02/15/19 Anisocyte) 11:09 AM) [id number] 16:09:00 Test Item Value Reference Range Interpretation Comments Macrocyte (test code = 1+ *ABN*(02/15/19 Macrocyte) 11:09 AM) [id number] 10:40:00 Test Item Value Reference Range Interpretation Comments Eosinophils # (test code 0.4 See_Comment [A utomated message] The = Eosinophils #) system whic h generated this result tra nsmitted reference range : <=0.5. The reference r evelyn was not used to int erpret this result as normal/abnormal . [id number] 10:40:00 Test Item Value Reference Range Interpretation Comments Anisocyte (test code = 1+ *ABN*(02/13/19 Anisocyte) 5:40 AM) [facility] HospitalWibcqcvGVFSHAJSXP0469-21-52 10:40:00 Test Item Value Reference Range Interpretation Comments Polychrom (test code = Polychrom) [facility]manEdtzscxBOQNURMBOP5992-01-26 10:40:00 Test Item Value Reference Range Interpretation Comments Large Plt (test code = Large Plt) [facility] HospitalZnzsshuPDAYVIZIHJ8633-74-27 20:53:00 Test Item Value Reference Range Interpretation Comments C-REACTIVE PROTEIN (test code = 96.6 C-REACTIVE PROTEIN) [facility] HospitalCHEM [id number] 07:43:00 Test Item Value Reference Range Interpretation Comments Lactic Acid Lvl (test code = Lactic 1.6 0.5-2.2 Acid Lvl) [facility] [id number] 01:51:00 Test Item Value Reference Range Interpretation Comments Lactic Acid Lvl (test code = Lactic 2.4 0.5-2.2 Acid Lvl) [facility]aleXlocrtxLEFEDAISIX1331-46-19 01:51:00 Test Item Value Reference Range Interpretation Comments Polychrom (test code = Polychrom) [facility]aleIpnrzaxYMTDRITJKF3828-94-38 01:51:00 Test Item Value Reference Range Interpretation Comments Large Plt (test code = Large Plt) [facility]aleFxczxulEAHLCIASZD8730-80-43 01:51:00 Test Item Value Reference Range Interpretation Comments Vanco Lvl (test code = Vanco Lvl) 12.1 [facility] HermannTRIMETHOPRIM+SULFAMETHOXAZOLE:SUSC:PT:ISOLATE:ORDQN:MARIA TERESA 2019-02-11 18:43:00 Test Item Value Reference Range Interpretation Comments Gram Stain Report Gram Stain Performed By: (test code = Gram [facility] Stain Report) [facility] HermannTRIMETHOPRIM+SULFAMETHOXAZOLE:SUSC:PT:ISOLATE:ORDQN:MARIA TERESA 2019-02-11 18:43:00 Test Item Value Reference Range Interpretation Comments Culture: Rare Proteus mirabilis Many Wound/Abscess Enterococcus Species w/Gram Stain (test Moderate Staphylococcus code = Culture: aureus Upon Supplemental Wound/Abscess Testing, This Isolate Was w/Gram Stain) Found To Be 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 [facility] HermannTRIMETHOPRIM+SULFAMETHOXAZOLE:SUSC:PT:ISOLATE:ORDQN:MARIA TERESA 2019-02-11 18:43:00 Test Item Value Reference Range Interpretation Comments Staphylococcus aureus Staphylococcus aureus (test code = Staphylococcus aureus) [facility] HermannTRIMETHOPRIM+SULFAMETHOXAZOLE:SUSC:PT:ISOLATE:ORDQN:MARIA TERESA 2019-02-11 18:43:00 Test Item Value Reference Range Interpretation Comments Enterococcus Species Enterococcus Species (test code = Enterococcus Species) [facility]annTRIMETHOPRIM+SULFAMETHOXAZOLE:SUSC:PT:ISOLATE:ORDQN:MARIA TERESA 2019-02-11 18:43:00 Test Item Value Reference Range Interpretation Comments Proteus mirabilis (test Proteus mirabilis code = Proteus mirabilis) [facility] H[id number] 14:43:00 Test Item Value Reference Range Interpretation Comments Vanco Lvl (test code = Vanco Lvl) 14.3 [facility]CHE[facility] [id number] 03:40:00 Test Item Value Reference Range Interpretation Comments Lactic Acid Lvl (test code = Lactic 1.6 0.5-2.2 Acid Lvl) [facility] [place]CHE[facility] [id number] 14:04:00 Test Item Value Reference Range Interpretation Comments Magnesium Lvl (test code = Magnesium 2.1 1.8-2.4 Lvl) [facility] [id number] 14:04:00 Test Item Value Reference Range Interpretation Comments RBC Morph (test code = Normal (02/09/19 9:04 RBC Morph) AM) [facility] Hos[id number] 14:04:00 Test Item Value Reference Range Interpretation Comments Plt Morph (test code = Normal (02/09/19 9:04 Plt Morph) AM) [facility] HospitalPARATHYROID [id number] 14:04:00 Test Item Value Reference Range Interpretation Comments Ca Ion WB (test code = Ca Ion WB) 1.06 1.05-1.25 [facility] HospitalannPARATHYROID [id number] 14:04:00 Test Item Value Reference Range Interpretation Comments Ca Norm WB (test code = Ca Norm WB) 1.04 1.05-1.25 [facility] HospitalannURINE AND [id number] 08:55:00 Test Item Value Reference Range Interpretation Comments UA Color (test code = Yellow *NA*(02/08/19 UA Color) 3:55 AM) [facility] [id number] 08:55:00 Test Item Value Reference Range Interpretation Comments UA Turbidity (test code Marked *ABN*(02/08/19 = UA Turbidity) 3:55 AM) [facility] [id number] 08:55:00 Test Item Value Reference Range Interpretation Comments UA Spec Grav (test code = UA Spec 1.022 1 Grav) [facility] [id number] 08:55:00 Test Item Value Reference Range Interpretation Comments UA pH (test code = UA pH) 5.0 1 5.0-8.0 [facility] [id number] 08:55:00 Test Item Value Reference Range Interpretation Comments UA Protein (test code = UA Protein) 100 mg/dL [facility] AND [id number] 08:55:00 Test Item Value Reference Range Interpretation Comments UA Glucose (test code = UA Glucose) 500 mg/dL [facility] AND [id number] 08:55:00 Test Item Value Reference Range Interpretation Comments UA Ketones (test code = UA Negative mg/dL Ketones) [facility] AND [id number] 08:55:00 Test Item Value Reference Range Interpretation Comments UA Bili (test code = Negative *NA*(02/08/19 UA Bili) 3:55 AM) [facility] AND [id number] 08:55:00 Test Item Value Reference Range Interpretation Comments UA Blood (test code = Negative (02/08/19 3:55 UA Blood) AM) [facility] AND [id number] 08:55:00 Test Item Value Reference Range Interpretation Comments UA Urobilinogen (test code = UA no gt 0.1-1.0 Urobilinogen) [facility] AND [id number] 08:55:00 Test Item Value Reference Range Interpretation Comments UA Nitrite (test code Negative (02/08/19 3:55 = UA Nitrite) AM) [facility] AND [id number] 08:55:00 Test Item Value Reference Range Interpretation Comments UA Leuk Est (test Negative (02/08/19 3:55 code = UA Leuk Est) AM) [facility] AND [id number] 08:55:00 Test Item Value Reference Range Interpretation Comments UA Sq Epi (test code = UA Sq Occasional /LPF Epi) [facility] AND [id number] 08:55:00 Test Item Value Reference Range Interpretation Comments UA WBC (test code = 13 See_Comment [Automa porsche message] The UA WBC) system which ge nerated this result transmit porsche reference range : <=5. The reference range was not used to interpr et this result as alexia l/abnormal. [facility] AND [id number] 08:55:00 Test Item Value Reference Range Interpretation Comments UA RBC (test code = 4 See_Comment [Automa porsche message] The UA RBC) system which ge nerated this result transmit porsche reference range : <=2. The reference range was not used to interpr et this result as alexia l/abnormal. [facility] AND [id number] 08:55:00 Test Item Value Reference Range Interpretation Comments UA Bacteria (test code = UA Occasional /HPF Bacteria) [facility] AND [id number] 08:55:00 Test Item Value Reference Range Interpretation Comments UA Mucus (test code = UA Mucus) Few /LPF [facility] AND [id number] 08:55:00 Test Item Value Reference Range Interpretation Comments UA Hyal Cast (test 5 See_Comment [Automat ed message] The code = UA Hyal Cast) system which generated this result transmit porsche reference range : <=2. The reference range was not used to interpr et this result as alexia l/abnormal. [facility] AND [id number] 08:55:00 Test Item Value Reference Range Interpretation Comments UA Gran Cast (test code = UA Gran 3-5 /LPF Cast) [facility] [id number] 08:55:00 Test Item Value Reference Range Interpretation Comments U Sodium (test code = U Sodium) [address] [facility] [id number] 08:55:00 Test Item Value Reference Range Interpretation Comments U Creatinine (test code = U 135.00 Creatinine) [facility] HospitalCulture: [id number] 08:55:00 Test Item Value Reference Range Interpretation Comments Culture: Urine (test 10,000 - 50,000 code = Culture: Urine) CFU/mL [facility] HospitalCARDIAC [id number] 06:59:00 Test Item Value Reference Range Interpretation Comments Troponin-I (test code no gt See_Comment [Auto mated message] The = Troponin-I) system which g enerated this result transmit porsche reference range : <=0.40. The reference r evelyn was not used to interpr et this result as alexia l/abnormal. [facility] [id number] 06:59:00 Test Item Value Reference Range Interpretation Comments Sed Rate (test code = 95 See_Comment [Auto mated message] The Sed Rate) system which ge nerated this result transmit porsche reference range : <=20. The reference range was not used to interpr et this result as alexia l/abnormal. [facility] H[id number] 06:59:00 Test Item Value Reference Range Interpretation Comments C-REACTIVE PROTEIN (test code = 81.9 C-REACTIVE PROTEIN) [facility]2019-09-10 06:59:00 Test Item Value Reference Range Interpretation Comments Ca Ion WB (test code = Ca Ion WB) 1.19 1.05-1.25 [facility]RO[facility] [id number] 06:59:00 Test Item Value Reference Range Interpretation Comments Ca Norm WB (test code = Ca Norm WB) 1.17 1.05-1.25 [facility] HospitalCHEM [id number] 01:53:00 Test Item Value Reference Range Interpretation Comments Osmolality (test code = Osmolality) 314 280-[address] [facility] AND [id number] 01:53:00 Test Item Value Reference Range Interpretation Comments UA Ketones (test code = UA Trace mg/dL Ketones) [facility]2019-09-09 06:52:00 Test Item Value Reference Range Interpretation Comments Ca Ion WB (test code = Ca Ion WB) 1.08 1.05-1.25 [facility]2019-09-09 06:52:00 Test Item Value Reference Range Interpretation Comments Ca Norm WB (test code = Ca Norm WB) 1.09 1.05-1.[address] [facility] [id number] 19:48:00 Test Item Value Reference Range Interpretation Comments Vitamin B12 Lvl (test code = Vitamin 381 553-3147 B12 Lvl) [facility] [id number] 19:48:00 Test Item Value Reference Range Interpretation Comments Folate Lvl (test code = Folate Lvl) 16.9 [facility] [id number] 19:48:00 Test Item Value Reference Range Interpretation Comments Ammonia (test code = Ammonia) 13.0 [facility] [id number] 19:48:00 Test Item Value Reference Range Interpretation Comments VITAMIN B1 (THIAMINE) WHOLE BLOOD (test 172.6 66.5-200.0 code = VITAMIN B1 (THIAMINE) WHOLE BLOOD) [facility] [id number] 19:48:00 Test Item Value Reference Range Interpretation Comments Homocyst Tot (test code 17.3 See_Comment [Au tomated message] The = Homocyst Tot) system which generated this result tra nsmitted reference range : <=15.0. The reference r evelyn was not used to int erpret this result as normal/abnormal . [id number] 19:48:00 Test Item Value Reference Range Interpretation Comments MMA Qnt (test code = 179 See_Comment [Autom ated message] The MMA Qnt) system which ge nerated this result transmit porsche reference range : <=378. The reference range was not used to interpr et this result as alexia l/abnormal. [facility] HospitalOSA TechnologiesIAL [id number] 19:48:00 Test Item Value Reference Range Interpretation Comments Hgb A1C (test code = Hgb A1C) 8.5 [facility] SunnyvaleCeltic Therapeutics HoldingsCARonlinetoursAC [id number] 19:43:00 Test Item Value Reference Range Interpretation Comments Troponin-I (test code 0.03 See_Comment [Auto mated message] The = Troponin-I) system which g enerated this result transmit porsche reference range : <=0.40. The reference r evelyn was not used to interpr et this result as alexia l/abnormal. [facility] SunnyvaleCeltic Therapeutics HoldingsCARonlinetoursAC [id number] 19:43:00 Test Item Value Reference Range Interpretation Comments Total CK (test code = Total CK) 200 12-191 [facility] SunnyvaleCeltic Therapeutics HoldingsCARonlinetoursAC [id number] 19:43:00 Test Item Value Reference Range Interpretation Comments CK MB (test code = CK MB) 1.5 0.5-3.6 [facility] Sunny[facility]aleannCARonlinetoursAC [id number] 19:43:00 Test Item Value Reference Range Interpretation Comments CK MB Index (test 0.8 1 See_Comment [Automate d message] The code = CK MB Index) system w [facility] generated this result transmit porsche reference range : <=2.5. The reference range was not used to interpr et this result as alexia l/abnormal. [facility] [employer]ir PharmaceuticalsCHEM [id number] 19:43:00 Test Item Value Reference Range Interpretation Comments B/C Ratio (test code = B/C Ratio) 16 1 6-25 [facility] [employer]ixir PharmaceuticalsCHEM [id number] 19:43:00 Test Item Value Reference Range Interpretation Comments Total Protein (test code = Total 6.4 6.4-8.4 Protein) [facility]2019-09-07 19:43:00 Test Item Value Reference Range Interpretation Comments Albumin Lvl (test code = Albumin Lvl) 2.2 3.5-5.0 [facility]2019-09-07 19:43:00 Test Item Value Reference Range Interpretation Comments Globulin (test code = Globulin) 4.2 2.7-4.2 [facility]2019-09-07 19:43:00 Test Item Value Reference Range Interpretation Comments A/G Ratio (test code = A/G Ratio) 0.5 1 0.7-1.6 [facility]2019-09-07 19:43:00 Test Item Value Reference Range Interpretation Comments AST (test code = AST) 184 See_Comment [Auto mated message] The system which ge nerated this result transmit porsche reference range : <=37. The reference range was not used to interpr et this result as alexia l/abnormal. [facility]2019-09-07 19:43:00 Test Item Value Reference Range Interpretation Comments Alk Phos (test code = Alk Phos) 330 39-136 [facility]2019-09-07 19:43:00 Test Item Value Reference Range Interpretation Comments Bili Total (test code = Bili Total) 0.6 0.2-1.3 [facility]2019-09-07 19:43:00 Test Item Value Reference Range Interpretation Comments ALT (test code = ALT) 103 See_Comment [Auto mated message] The system which ge nerated this result transmit porsche reference range : <=65. The reference range was not used to interpr et this result as alexia l/abnormal. [facility]2019-09-07 19:43:00 Test Item Value Reference Range Interpretation Comments Vitamin D, 25-OH, Total (test code = 6.5 30.0-100.0 Vitamin D, 25-OH, Total) [facility] AND [id number] 19:43:00 Test Item Value Reference Range Interpretation Comments UA Color (test code = Dark Yellow *NA*(02/05/19 UA Color) 2:43 PM) [facility] AND [id number] 19:43:00 Test Item Value Reference Range Interpretation Comments UA Turbidity (test code Marked *ABN*(02/05/19 = UA Turbidity) 2:43 PM) [facility] AND [id number] 19:43:00 Test Item Value Reference Range Interpretation Comments UA Spec Grav (test code = UA Spec 1.022 1 Grav) [facility] AND [id number] 19:43:00 Test Item Value Reference Range Interpretation Comments UA pH (test code = UA pH) 6.0 1 5.0-8.[address] [facility] AND [id number] 19:43:00 Test Item Value Reference Range Interpretation Comments UA Protein (test code = UA Protein) 100 mg/dL [facility] AND [id number] 19:43:00 Test Item Value Reference Range Interpretation Comments UA Glucose (test code = UA Glucose) 500 mg/dL [facility] AND [id number] 19:43:00 Test Item Value Reference Range Interpretation Comments UA Ketones (test code = UA Trace mg/dL Ketones) [facility] AND [id number] 19:43:00 Test Item Value Reference Range Interpretation Comments UA Bili (test code = Negative *NA*(02/05/19 UA Bili) 2:43 PM) [facility] AND [id number] 19:43:00 Test Item Value Reference Range Interpretation Comments UA Blood (test code = Negative (02/05/19 2:43 UA Blood) PM) [facility] AND [id number] 19:43:00 Test Item Value Reference Range Interpretation Comments UA Urobilinogen (test code = UA 2.0 0.1-1.0 Urobilinogen) [facility] AND [id number] 19:43:00 Test Item Value Reference Range Interpretation Comments UA Nitrite (test code Negative (02/05/19 2:43 = UA Nitrite) PM) [facility] AND [id number] 19:43:00 Test Item Value Reference Range Interpretation Comments UA Leuk Est (test Negative (02/05/19 2:43 code = UA Leuk Est) PM) [facility] AND [id number] 19:43:00 Test Item Value Reference Range Interpretation Comments UA Sq Epi (test code = UA Sq Occasional /LPF Epi) [facility] AND [id number] 19:43:00 Test Item Value Reference Range Interpretation Comments UA WBC (test code = 4 See_Comment [Automa porsche message] The UA WBC) system which ge nerated this result transmit porsche reference range : <=5. The reference range was not used to interpr et this result as alexia l/abnormal. [facility] AND [id number] 19:43:00 Test Item Value Reference Range Interpretation Comments UA RBC (test code = 2 See_Comment [Automa porsche message] The UA RBC) system which ge nerated this result transmit porsche reference range : <=2. The reference range was not used to interpr et this result as alexia l/abnormal. [facility] AND [id number] 19:43:00 Test Item Value Reference Range Interpretation Comments UA Bacteria (test code = UA Few /HPF Bacteria) [facility] AND [id number] 19:43:00 Test Item Value Reference Range Interpretation Comments UA Mucus (test code = UA Mucus) Few /LPF [facility] AND [id number] 19:43:00 Test Item Value Reference Range Interpretation Comments UA Uric Ac Jagruti (test code = UA Many /HPF Uric Ac Jagruti) [id number] 10:01:00 Test Item Value Reference Range Interpretation Comments Neutrophils # (test code = Neutrophils 12.0 1.5-8.1 #) [id number] 10:01:00 Test Item Value Reference Range Interpretation Comments Lymphocytes # (test code = Lymphocytes 2.2 1.0-5.5 #) [id number] 10:01:00 Test Item Value Reference Range Interpretation Comments Monocytes # (test code 0.8 See_Comment [Aut omated message] The = Monocytes #) system which generated this result tra nsmitted reference range : <=0.8. The reference r evelyn was not used to int erpret this result as normal/abnormal . [facility]ZdtyqzxENGLHFIZZC8051-21-50 10:01:00 Test Item Value Reference Range Interpretation Comments Segs (test code = Segs) 78.0 45.0-75.0 [facility]CxiynamLESEUPFYPY3503-04-89 10:01:00 Test Item Value Reference Range Interpretation Comments Bands (test code = 0.0 See_Comment [Automat ed message] The Bands) system which ge nerated this result transmit porsche reference range : <=11.0. The reference r evelyn was not used to interpr et this result as aleixa l/abnormal. [facility]XzpirqyJMWFRXEUUG6446-52-86 10:01:00 Test Item Value Reference Range Interpretation Comments Lymphocytes (test code = Lymphocytes) 14.0 20.0-40.0 [facility]manGxnbuelVXJXEJDOJG2720-54-95 10:01:00 Test Item Value Reference Range Interpretation Comments Monocytes (test code = Monocytes) 5.0 2.0-12.0 [facility]manHzunixpTBLJKTYAED0098-33-31 10:01:00 Test Item Value Reference Range Interpretation Comments Metamyelocytes (test code 1.0 See_Comment [ Automated message] = Metamyelocytes) The system which generated this result transmitted ref erence range: <=1.0. T he reference range was not used to int erpret this result as normal/abnormal . [facility]manWzhpyfpLJNIOIARII7848-27-21 10:01:00 Test Item Value Reference Range Interpretation Comments Myelocytes (test code = Myelocytes) 2.0 [facility]manRlvngweRCUAZPWWTD2944-65-98 10:01:00 Test Item Value Reference Range Interpretation Comments Atypical Lymphs (test code = Atypical 0.0 Lymphs) [facility]manQjchhxtIDWUBEJATK3161-02-35 10:01:00 Test Item Value Reference Range Interpretation Comments NRBC (test code = NRBC) 3 [facility]NbpgvnfFGISZMCBLD9646-24-92 10:01:00 Test Item Value Reference Range Interpretation Comments Anisocyte (test code = 1+ *ABN*(01/09/19 Anisocyte) 5:01 AM) [facility]manAbisgceGIVHPDKHJG6728-17-94 10:01:00 Test Item Value Reference Range Interpretation Comments Macrocyte (test code = 1+ *ABN*(01/09/19 Macrocyte) 5:01 AM) [facility]manMdfssjlIXUTOFFHZZ7583-53-22 10:01:00 Test Item Value Reference Range Interpretation Comments Polychrom (test code = Moderate *ABN*(01/09/19 Polychrom) 5:01 AM) [facility]manSzijarqCUOVERLBBX2479-97-31 10:01:00 Test Item Value Reference Range Interpretation Comments Large Plt (test code = Large Plt) slight [facility]manVztkbtdTNMNHAAGYN0194-19-52 10:01:00 Test Item Value Reference Range Interpretation Comments WBC (test code = WBC) 15.4 3.7-10.4 [facility]manNaeacvtFJAMMFWZWG8751-68-73 10:01:00 Test Item Value Reference Range Interpretation Comments RBC (test code = RBC) 2.79 4.20-5.40 [facility]manMyghbozQZIPBDRSXP2211-67-47 10:01:00 Test Item Value Reference Range Interpretation Comments Hgb (test code = Hgb) 9.6 12.0-16.0 [facility]manFvgwnxkAUHLDSRLCN6185-63-33 10:01:00 Test Item Value Reference Range Interpretation Comments Hct (test code = Hct) 29.3 36.0-48.0 [facility]manKxmybkbISPWODNJSO2015-10-37 10:01:00 Test Item Value Reference Range Interpretation Comments MCV (test code = MCV) 104.8 80.0-98.0 [facility]manJthqmjqITOVFEQDMP9658-21-67 10:01:00 Test Item Value Reference Range Interpretation Comments MCH (test code = MCH) 34.5 pg 27.0-31.0 [facility]manHbnbfqzQPMJSAJEMX3359-14-65 10:01:00 Test Item Value Reference Range Interpretation Comments MCHC (test code = MCHC) 32.9 32.0-36.0 [facility]manWppihebYIXDTPJOCB0307-04-89 10:01:00 Test Item Value Reference Range Interpretation Comments RDW (test code = RDW) 22.7 11.5-14.5 [facility]manBfbysvwQTYJTZLDUN1396-94-93 10:01:00 Test Item Value Reference Range Interpretation Comments Platelet (test code = Platelet) 119 133-450 [facility]manTobzwimODWXUBPOSP2810-92-20 10:01:00 Test Item Value Reference Range Interpretation Comments MPV (test code = MPV) 9.8 7.4-10.4 [facility]2019-08-09 10:31:00 Test Item Value Reference Range Interpretation Comments Glucose Lvl (test code = Glucose Lvl) 79 70-99 [facility]2019-08-09 10:31:00 Test Item Value Reference Range Interpretation Comments BUN (test code = BUN) 27 7-22 [facility]2019-08-09 10:31:00 Test Item Value Reference Range Interpretation Comments Creatinine Lvl (test code = Creatinine 0.77 0.50-1.40 Lvl) [facility]2019-08-09 10:31:00 Test Item Value Reference Range Interpretation Comments Sodium Lvl (test code = Sodium Lvl) 142 135-145 [facility]2019-08-09 10:31:00 Test Item Value Reference Range Interpretation Comments Potassium Lvl (test code = Potassium 4.2 3.5-5.1 Lvl) [facility]2019-08-09 10:31:00 Test Item Value Reference Range Interpretation Comments Chloride Lvl (test code = Chloride Lvl) 106 95-109 [facility]2019-08-09 10:31:00 Test Item Value Reference Range Interpretation Comments CO2 (test code = CO2) 28 24-32 [facility]2019-08-09 10:31:00 Test Item Value Reference Range Interpretation Comments AGAP (test code = AGAP) 12.2 10.0-20.0 [facility]2019-08-09 10:31:00 Test Item Value Reference Range Interpretation Comments Calcium Lvl (test code = Calcium Lvl) 8.6 8.5-10.5 [facility]2019-08-09 10:31:00 Test Item Value Reference Range Interpretation Comments eGFR (test code = eGFR) 78 [facility]2019-08-09 10:31:00 Test Item Value Reference Range Interpretation Comments Magnesium Lvl (test code = Magnesium 2.1 1.8-2.4 Lvl) [facility]2019-08-09 10:31:00 Test Item Value Reference Range Interpretation Comments Phosphorus (test code = Phosphorus) 3.7 2.5-4.5 [facility]manPiuyiqmQDCIVEUAYF1890-07-56 10:31:00 Test Item Value Reference Range Interpretation Comments Neutrophils # (test code = Neutrophils 14.2 1.5-8.1 #) [facility]manPgopistBEMGZXFWRV4334-34-09 10:31:00 Test Item Value Reference Range Interpretation Comments Lymphocytes # (test code = Lymphocytes 6.1 1.0-5.5 #) [facility]manPioodqvXQXTFTGXBM8276-81-32 10:31:00 Test Item Value Reference Range Interpretation Comments Monocytes # (test code 0.4 See_Comment [Aut omated message] The = Monocytes #) system which generated this result tra nsmitted reference range : <=0.8. The reference r evelyn was not used to int erpret this result as normal/abnormal . [facility]manZpsmkmoMBJJRNSSGI5116-82-05 10:31:00 Test Item Value Reference Range Interpretation Comments Basophils # (test code 0.2 See_Comment [Aut omated message] The = Basophils #) system which generated this result tra nsmitted reference range : <=0.2. The reference r evelyn was not used to int erpret this result as normal/abnormal . [facility]manLlqirmiQJDYHJTKPS6233-57-44 10:31:00 Test Item Value Reference Range Interpretation Comments Segs (test code = Segs) 67.0 45.0-75.0 [facility]manGmirdjeSQCGFAKTBA8067-20-00 10:31:00 Test Item Value Reference Range Interpretation Comments Bands (test code = 0.0 See_Comment [Automat ed message] The Bands) system which ge nerated this result transmit porsche reference range : <=11.0. The reference r evelyn was not used to interpr et this result as alexia l/abnormal. [facility]manCruvcumROJPWESSIE0951-63-48 10:31:00 Test Item Value Reference Range Interpretation Comments Lymphocytes (test code = Lymphocytes) 29.0 20.0-40.0 [facility]manEkycykvDXGCSLAOEP2372-29-21 10:31:00 Test Item Value Reference Range Interpretation Comments Monocytes (test code = Monocytes) 2.0 2.0-12.0 [facility]manHrlnkiyFPEZCHULVG8037-28-86 10:31:00 Test Item Value Reference Range Interpretation Comments Basophils (test code = 1.0 See_Comment [Aut omated message] The Basophils) system which ge nerated this result tra nsmitted reference range : <=1.0. The reference r evelyn was not used to int erpret this result as normal/abnormal . [facility]manGdsbytrINEVKITQQQ9648-65-90 10:31:00 Test Item Value Reference Range Interpretation Comments Myelocytes (test code = Myelocytes) 1.0 [facility]manFqynjseRLXCXZALGP0480-04-56 10:31:00 Test Item Value Reference Range Interpretation Comments Atypical Lymphs (test code = Atypical 0.0 Lymphs) [facility]manBpohrhmMWTVZPAKUQ2419-90-84 10:31:00 Test Item Value Reference Range Interpretation Comments NRBC (test code = NRBC) 2 [facility]manJojkuwbNBWTRKHWWI3732-35-55 10:31:00 Test Item Value Reference Range Interpretation Comments Plt Morph (test code = Normal (01/07/19 5:31 AM) Plt Morph) [facility]manGjevubkUGIGFWYBTH5853-43-26 10:31:00 Test Item Value Reference Range Interpretation Comments Anisocyte (test code = 1+ *ABN*(01/07/19 5:31 Anisocyte) AM) [facility]manLowvhmgBTAMOZVFFS9886-11-82 10:31:00 Test Item Value Reference Range Interpretation Comments Macrocyte (test code = 1+ *ABN*(01/07/19 5:31 Macrocyte) AM) [facility]manBffvoknBNLYNDPPMN6966-98-89 10:31:00 Test Item Value Reference Range Interpretation Comments Polychrom (test code = Moderate *ABN*(01/07/19 Polychrom) 5:31 AM) [facility]manSrgtbgpRXMAILFCRI9988-82-62 10:31:00 Test Item Value Reference Range Interpretation Comments WBC (test code = WBC) 21.2 3.7-10.4 [facility]manTmvffvdFBJTNSOFUL4880-77-66 10:31:00 Test Item Value Reference Range Interpretation Comments RBC (test code = RBC) 2.83 4.20-5.40 [facility]manVfgqrirWYBVWKUMQJ8638-57-10 10:31:00 Test Item Value Reference Range Interpretation Comments Hgb (test code = Hgb) 9.6 12.0-16.0 [facility]manOpolmmeFWYWOZKZGM1932-21-36 10:31:00 Test Item Value Reference Range Interpretation Comments Hct (test code = Hct) 29.6 36.0-48.0 [facility]manWqvescoTELBCJABXN7338-79-25 10:31:00 Test Item Value Reference Range Interpretation Comments MCV (test code = MCV) 104.5 80.0-98.0 [facility]manAkawhptMXUJYIIHZX9451-73-38 10:31:00 Test Item Value Reference Range Interpretation Comments MCH (test code = MCH) 33.9 pg 27.0-31.0 [facility]manKdzeqpxTRYWOHCKRK9521-09-30 10:31:00 Test Item Value Reference Range Interpretation Comments MCHC (test code = MCHC) 32.4 32.0-36.0 [facility]manFufwwvmCMBGBLJPMY2639-01-23 10:31:00 Test Item Value Reference Range Interpretation Comments RDW (test code = RDW) 19.9 11.5-14.5 [facility]manWlyzjtbSCMMKIACTI1198-90-17 10:31:00 Test Item Value Reference Range Interpretation Comments Platelet (test code = Platelet) 139 133-450 [facility]XkwhszfTQTPBIULWR9262-88-58 10:31:00 Test Item Value Reference Range Interpretation Comments MPV (test code = MPV) 10.6 7.4-10.4 [facility]2019-08-08 19:41:00 Test Item Value Reference Range Interpretation Comments Glucose Lvl (test code = Glucose Lvl) 130 70-99 [facility]2019-08-08 19:41:00 Test Item Value Reference Range Interpretation Comments BUN (test code = BUN) 27 7-22 [facility]2019-08-08 19:41:00 Test Item Value Reference Range Interpretation Comments Creatinine Lvl (test code = Creatinine 1.34 0.50-1.40 Lvl) [facility]2019-08-08 19:41:00 Test Item Value Reference Range Interpretation Comments Sodium Lvl (test code = Sodium Lvl) 145 135-145 [facility]2019-08-08 19:41:00 Test Item Value Reference Range Interpretation Comments Potassium Lvl (test code = Potassium 4.0 3.5-5.1 Lvl) [facility]2019-08-08 19:41:00 Test Item Value Reference Range Interpretation Comments Chloride Lvl (test code = Chloride Lvl) 106 95-109 [facility]2019-08-08 19:41:00 Test Item Value Reference Range Interpretation Comments CO2 (test code = CO2) 27 24-32 [facility]2019-08-08 19:41:00 Test Item Value Reference Range Interpretation Comments Calcium Lvl (test code = Calcium Lvl) 8.3 8.5-10.5 [facility]2019-08-08 19:41:00 Test Item Value Reference Range Interpretation Comments eGFR (test code = eGFR) 40 [facility]2019-08-08 19:41:00 Test Item Value Reference Range Interpretation Comments AGAP (test code = AGAP) 16.0 10.0-20.0 [facility]manGpcshkjKAZPMRJFTD6453-67-52 19:41:00 Test Item Value Reference Range Interpretation Comments Segs (test code = Segs) 84.9 45.0-75.0 [facility]manAcmkdgwZVGRKUIHPC2026-34-11 19:41:00 Test Item Value Reference Range Interpretation Comments Lymphocytes (test code = Lymphocytes) 11.4 20.0-40.0 [facility]manLrcswwmGGDTIOVFVK0890-95-87 19:41:00 Test Item Value Reference Range Interpretation Comments Monocytes (test code = Monocytes) 2.9 2.0-12.0 [facility]manAyxucxmDDULWKOLCP4310-62-62 19:41:00 Test Item Value Reference Range Interpretation Comments Eosinophils (test code = 0.2 See_Comment [A utomated message] The Eosinophils) system which ge nerated this result tra nsmitted reference range : <=4.0. The reference r evelyn was not used to int erpret this result as normal/abnormal . [facility]manSfofsysPMFFQYCWZJ7573-44-83 19:41:00 Test Item Value Reference Range Interpretation Comments Basophils (test code = 0.6 See_Comment [Aut omated message] The Basophils) system which ge nerated this result tra nsmitted reference range : <=1.0. The reference r evelyn was not used to int erpret this result as normal/abnormal . [facility]manVhvqlchNSESZQSSUO3991-94-38 19:41:00 Test Item Value Reference Range Interpretation Comments Neutrophils # (test code = Neutrophils 12.0 1.5-8.1 #) [facility]manAqiofxxMPMVPXKCRB7187-81-77 19:41:00 Test Item Value Reference Range Interpretation Comments Lymphocytes # (test code = Lymphocytes 1.6 1.0-5.5 #) [facility]manRaafigdTGTGGNMXOF2857-31-47 19:41:00 Test Item Value Reference Range Interpretation Comments Monocytes # (test code 0.4 See_Comment [Aut omated message] The = Monocytes #) system which generated this result tra nsmitted reference range : <=0.8. The reference r evelyn was not used to int erpret this result as normal/abnormal . [facility]manOemczjpMWLKAJFQQR6882-67-17 19:41:00 Test Item Value Reference Range Interpretation Comments Basophils # (test code 0.1 See_Comment [Aut omated message] The = Basophils #) system which generated this result tra nsmitted reference range : <=0.2. The reference r evelyn was not used to int erpret this result as normal/abnormal . [facility]manKxyrynlPSURLERKBC2069-72-75 19:41:00 Test Item Value Reference Range Interpretation Comments Macrocyte (test code = 1+ *ABN*(01/06/19 2:41 Macrocyte) PM) [facility]manPyenpftEUCOZQUOSI8237-09-04 19:41:00 Test Item Value Reference Range Interpretation Comments Polychrom (test code = Polychrom) slight [facility]manWbkzuvrYZWLOIXGDY9109-97-70 19:41:00 Test Item Value Reference Range Interpretation Comments WBC (test code = WBC) 14.1 3.7-10.4 [facility]manWmfbxqnPIZHVDGFLE7521-92-22 19:41:00 Test Item Value Reference Range Interpretation Comments RBC (test code = RBC) 2.86 4.20-5.40 [facility]manKqfirwoRJSFQOGTZZ2470-16-67 19:41:00 Test Item Value Reference Range Interpretation Comments Hgb (test code = Hgb) 9.7 12.0-16.0 [facility]manAohlibvXNWOXKEEQG4817-35-89 19:41:00 Test Item Value Reference Range Interpretation Comments Hct (test code = Hct) 29.5 36.0-48.0 [facility]manHhmbwvmTFVZKYFGHW8078-35-45 19:41:00 Test Item Value Reference Range Interpretation Comments MCV (test code = MCV) 103.3 80.0-98.0 [facility]manNjusgwtNCWAUWJXER2243-36-63 19:41:00 Test Item Value Reference Range Interpretation Comments MCH (test code = MCH) 33.8 pg 27.0-31.0 [facility]manNmwopjwLTAOHWDOJX4898-13-08 19:41:00 Test Item Value Reference Range Interpretation Comments MCHC (test code = MCHC) 32.7 32.0-36.0 [facility]manQxztdavMWHFQRQKSI5015-11-65 19:41:00 Test Item Value Reference Range Interpretation Comments RDW (test code = RDW) 20.1 11.5-14.5 [facility]manZvqrdrkVYWNQLAAEY5868-38-91 19:41:00 Test Item Value Reference Range Interpretation Comments Platelet (test code = Platelet) 119 133-450 [facility]manSobnhlrZWEBGMAIWS2389-51-74 19:41:00 Test Item Value Reference Range Interpretation Comments MPV (test code = MPV) 10.2 7.4-10.4 [facility] HospitalCARDIAC HUOXHLX3364-34-39 17:50:00 Test Item Value Reference Range Interpretation Comments BNP (test code = BNP) 98 [facility]PqhyntqYRGXHZKTQXTK3558-55-22 17:50:00 Test Item Value Reference Range Interpretation Comments AGAP (test code = AGAP) 12.0 10.0-20.0 [facility] MichiganTdtjetcYSHLABJHSOCU6640-21-88 17:50:00 Test Item Value Reference Range Interpretation Comments Glucose Lvl (test code = Glucose Lvl) 83 70-99 [facility] MichiganOzjwovtESPDMVGFTUXD3098-33-68 17:50:00 Test Item Value Reference Range Interpretation Comments BUN (test code = BUN) 23 7-22 [facility] MichiganYsdomsmUQHJARPAFHAN2156-89-76 17:50:00 Test Item Value Reference Range Interpretation Comments Creatinine Lvl (test code = Creatinine 0.88 0.50-1.40 Lvl) [facility] MichiganPdbchzzPUJZQZUXOVTD5040-57-68 17:50:00 Test Item Value Reference Range Interpretation Comments Sodium Lvl (test code = Sodium Lvl) 140 135-145 [facility] MichiganDbyywubRQLHRESPZTYF7743-56-83 17:50:00 Test Item Value Reference Range Interpretation Comments Potassium Lvl (test code = Potassium 4.0 3.5-5.1 Lvl) [facility] MichiganAfiwugiKRLSFNAAHSGW8971-28-27 17:50:00 Test Item Value Reference Range Interpretation Comments Chloride Lvl (test code = Chloride Lvl) 107 95-109 [facility] MichiganZzgzgbhEPKHUXQLONXM8931-29-57 17:50:00 Test Item Value Reference Range Interpretation Comments CO2 (test code = CO2) 25 24-32 [facility] MichiganYgtzzwaEHSIAAOOIWDQ3321-85-31 17:50:00 Test Item Value Reference Range Interpretation Comments Calcium Lvl (test code = Calcium Lvl) 8.5 8.5-10.5 [facility] MichiganGelgefpNYKEVVNCAVCS5161-07-44 17:50:00 Test Item Value Reference Range Interpretation Comments eGFR (test code = eGFR) 66 [facility] HospitalNivmikoYXZETKAXYN1675-91-96 17:50:00 Test Item Value Reference Range Interpretation Comments Eosinophils # (test code 0.2 See_Comment [A utomated message] The = Eosinophils #) system ic h generated this result tra nsmitted reference range : <=0.5. The reference r evelyn was not used to int erpret this result as normal/abnormal . [facility]manRsfomckJFMCIKYCSE7660-14-90 17:50:00 Test Item Value Reference Range Interpretation Comments Bands (test code = 3.0 See_Comment [Automat ed message] The Bands) system which ge nerated this result transmit porsche reference range : <=11.0. The reference r evelyn was not used to interpr et this result as alexia l/abnormal. [facility]manEntviusNXYMBNNYKC5684-73-27 17:50:00 Test Item Value Reference Range Interpretation Comments Eosinophils (test code = 1.0 See_Comment [A utomated message] The Eosinophils) system which ge nerated this result tra nsmitted reference range : <=4.0. The reference r evelyn was not used to int erpret this result as normal/abnormal . [facility]manPnvajomLIHNENVEGS2350-21-06 17:50:00 Test Item Value Reference Range Interpretation Comments Myelocytes (test code = Myelocytes) 1.0 [facility]manSgmczvnNJSBBPGODY1699-27-37 17:50:00 Test Item Value Reference Range Interpretation Comments Atypical Lymphs (test code = Atypical 0.0 Lymphs) [facility]manNggljmnQNCTVPVTCV6482-93-38 17:50:00 Test Item Value Reference Range Interpretation Comments NRBC (test code = NRBC) 9 [facility]manVlkurvmTSMIKPLXPW9574-08-48 17:50:00 Test Item Value Reference Range Interpretation Comments Plt Morph (test code = Normal (01/04/19 12:50 Plt Morph) PM) [facility]manSgctvruJVLWXDRGYX9921-21-18 17:50:00 Test Item Value Reference Range Interpretation Comments Anisocyte (test code = 1+ *ABN*(01/04/19 Anisocyte) 12:50 PM) [facility]manUxbejpuCLAFSIHHZX4480-07-72 06:25:00 Test Item Value Reference Range Interpretation Comments Eosinophils (test code = 0.1 See_Comment [A utomated message] The Eosinophils) system which ge nerated this result tra nsmitted reference range : <=4.0. The reference r evelyn was not used to int erpret this result as normal/abnormal . [facility]manFfsyrqkKFQCWSKOUH9026-20-36 06:25:00 Test Item Value Reference Range Interpretation Comments Basophils (test code = 0.7 See_Comment [Aut omated message] The Basophils) system which ge nerated this result tra nsmitted reference range : <=1.0. The reference r evelyn was not used to int erpret this result as normal/abnormal . [facility]manAuiywpsOURYNSGNIV1279-06-92 06:25:00 Test Item Value Reference Range Interpretation Comments Basophils # (test code 0.2 See_Comment [Aut omated message] The = Basophils #) system which generated this result tra nsmitted reference range : <=0.2. The reference r evelyn was not used to int erpret this result as normal/abnormal . [facility]2019-08-03 06:25:00 Test Item Value Reference Range Interpretation Comments Ca Ion WB (test code = Ca Ion WB) 1.08 1.05-1.25 [facility]2019-08-03 06:25:00 Test Item Value Reference Range Interpretation Comments Ca Norm WB (test code = Ca Norm WB) 1.04 1.05-1.25 [facility]manMuxmbepHKSBBPRTBF9580-02-74 07:09:00 Test Item Value Reference Range Interpretation Comments Metamyelocytes (test code 3.0 See_Comment [ Automated message] = Metamyelocytes) The system which generated this result transmitted ref erence range: <=1.0. T he reference range was not used to int erpret this result as normal/abnormal . [facility] HospitalLovejuice ETWWD0107-13-13 09:20:00 Test Item Value Reference Range Interpretation Comments Magnesium Lvl (test code = Magnesium 2.1 1.8-2.4 Lvl) [facility] HospitalLovejuice AZYMJ8811-30-05 09:20:00 Test Item Value Reference Range Interpretation Comments Phosphorus (test code = Phosphorus) 2.7 2.5-4.5 [facility]manLhcqkccBRTWFLFXEB1862-14-58 09:20:00 Test Item Value Reference Range Interpretation Comments Fibrinogen Lvl (test code = Fibrinogen 463 230-510 Lvl) [facility]manKoybprwFIOSJTKYUQ5119-67-88 09:20:00 Test Item Value Reference Range Interpretation Comments Eosinophils # (test code 0.1 See_Comment [A utomated message] The = Eosinophils #) system whic h generated this result tra nsmitted reference range : <=0.5. The reference r evelyn was not used to int erpret this result as normal/abnormal . [facility]ATHY[facility]ID LKLREBI1887-80-79 09:20:00 Test Item Value Reference Range Interpretation Comments Ca Ion WB (test code = Ca Ion WB) 1.08 1.05-1.25 [facility]ROID VJHVQBZ7767-12-83 09:20:00 Test Item Value Reference Range Interpretation Comments Ca Norm WB (test code = Ca Norm WB) 1.10 1.05-1.25 [facility] HospitalCARDIAC [id number] 05:04:00 Test Item Value Reference Range Interpretation Comments Troponin-I (test code 0.09 See_Comment [Auto mated message] The = Troponin-I) system which g enerated this result transmit porsche reference range : <=0.40. The reference r evelyn was not used to interpr et this result as alexia l/abnormal. [facility] HospitalCHEM [id number] 05:04:00 Test Item Value Reference Range Interpretation Comments Magnesium Lvl (test code = Magnesium 2.0 1.8-2.4 Lvl) [facility] HospitalCHEM [id number] 05:04:00 Test Item Value Reference Range Interpretation Comments Phosphorus (test code = Phosphorus) 2.4 2.5-4.5 [facility] [id number] 05:04:00 Test Item Value Reference Range Interpretation Comments Plt Morph (test code = Normal (12/29/18 12:04 Plt Morph) AM) [facility]gPBHRQURPQB6354-13-52 05:04:00 Test Item Value Reference Range Interpretation Comments INR (test code = INR) 1.02 1 0.85-1.17 [facility]LnfjiifFCQCNCRVUD0517-28-76 05:04:00 Test Item Value Reference Range Interpretation Comments PT (test code = PT) 13.2 s 12.0-14.7 [facility] HospitalGjkizatBROHZBYKXR2657-68-15 05:04:00 Test Item Value Reference Range Interpretation Comments PTT (test code = PTT) 31.0 s 22.9-35.8 [facility] Hos[id number] 05:04:00 Test Item Value Reference Range Interpretation Comments Fibrinogen Lvl (test code = Fibrinogen 424 230-510 Lvl) [facility]2019-07-31 05:04:00 Test Item Value Reference Range Interpretation Comments Ca Ion WB (test code = Ca Ion WB) 1.10 1.05-1.25 [facility] HospitalPARATHYROID [id number] 05:04:00 Test Item Value Reference Range Interpretation Comments Ca Norm WB (test code = Ca Norm WB) 1.11 1.05-1.25 [facility] HospitalCARDIAC [id number] 07:31:00 Test Item Value Reference Range Interpretation Comments Troponin-I (test code 0.11 See_Comment [Auto mated message] The = Troponin-I) system which g enerated this result transmit porsche reference range : <=0.40. The reference r evelyn was not used to interpr et this result as alexia l/abnormal. [facility] [id number] 07:31:00 Test Item Value Reference Range Interpretation Comments Total Protein (test code = Total 4.7 6.4-8.4 Protein) [facility] [id number] 07:31:00 Test Item Value Reference Range Interpretation Comments Albumin Lvl (test code = Albumin Lvl) 2.8 3.5-5.0 [facility] [id number] 07:31:00 Test Item Value Reference Range Interpretation Comments ALT (test code = ALT) 36 See_Comment [Auto mated message] The system which ge nerated this result transmit porsche reference range : <=65. The reference range was not used to interpr et this result as alexia l/abnormal. [facility] [id number] 07:31:00 Test Item Value Reference Range Interpretation Comments AST (test code = AST) 18 See_Comment [Auto mated message] The system which ge nerated this result transmit porsche reference range : <=37. The reference range was not used to interpr et this result as alexia l/abnormal. [facility] [id number] 07:31:00 Test Item Value Reference Range Interpretation Comments Alk Phos (test code = Alk Phos) 73 39-136 [facility] [id number] 07:31:00 Test Item Value Reference Range Interpretation Comments Bili Total (test code = Bili Total) 0.7 0.2-1.3 [facility] [id number] 07:31:00 Test Item Value Reference Range Interpretation Comments Bili Direct (test code 0.2 See_Comment [Aut omated message] The = Bili Direct) system which generated this result tra nsmitted reference range : <=0.3. The reference r evelyn was not used to int erpret this result as alexia l/abnormal. [facility] [id number] 07:31:00 Test Item Value Reference Range Interpretation Comments Bili Indirect (test 0.5 See_Comment [Automa porsche message] The code = Bili Indirect) system which generated this result tra nsmitted reference range : <=1.0. The reference r evelyn was not used to int erpret this result as normal/abnormal . [facility] [id number] 07:31:00 Test Item Value Reference Range Interpretation Comments Globulin (test code = Globulin) 1.9 2.7-4.2 [facility]2019-07-30 07:31:00 Test Item Value Reference Range Interpretation Comments A/G Ratio (test code = A/G Ratio) 1.5 1 0.7-1.6 [id number] 07:31:00 Test Item Value Reference Range Interpretation Comments Metamyelocytes (test code 1.0 See_Comment [ Automated message] = Metamyelocytes) The system which generated this result transmitted ref erence range: <=1.0. T he reference range was not used to int erpret this result as normal/abnormal . [id number] 07:31:00 Test Item Value Reference Range Interpretation Comments INR (test code = INR) 1.13 1 0.85-1.17 [facility] [id number] 07:31:00 Test Item Value Reference Range Interpretation Comments PT (test code = PT) 14.3 s 12.0-14.7 [facility] Hos[id number] 07:31:00 Test Item Value Reference Range Interpretation Comments PTT (test code = PTT) 35.5 s 22.9-35.8 [facility] [id number] 07:31:00 Test Item Value Reference Range Interpretation Comments Hgb A1C (test code = Hgb A1C) 11.[address] [facility] AND [id number] 11:12:00 Test Item Value Reference Range Interpretation Comments Occult Bld Stl (test Negative (12/27/18 6:12 code = Occult Bld Stl) AM) [facility] HospitalCARDIAC [id number] 05:26:00 Test Item Value Reference Range Interpretation Comments Troponin-I (test code 0.06 See_Comment [Auto mated message] The = Troponin-I) system which g enerated this result transmit porsche reference range : <=0.40. The reference r evelyn was not used to interpr et this result as alexia l/abnormal. [facility] [id number] 05:26:00 Test Item Value Reference Range Interpretation Comments Total Protein (test code = Total 4.7 6.4-8.4 Protein) [facility]2019-07-29 05:26:00 Test Item Value Reference Range Interpretation Comments Albumin Lvl (test code = Albumin Lvl) 3.5 3.5-5.0 [facility] [id number] 05:26:00 Test Item Value Reference Range Interpretation Comments ALT (test code = ALT) 30 See_Comment [Auto mated message] The system which ge nerated this result transmit porsche reference range : <=65. The reference range was not used to interpr et this result as alexia l/abnormal. [facility] [id number] 05:26:00 Test Item Value Reference Range Interpretation Comments AST (test code = AST) 11 See_Comment [Auto mated message] The system which ge nerated this result transmit porsche reference range : <=37. The reference range was not used to interpr et this result as alexia l/abnormal. [facility] [id number] 05:26:00 Test Item Value Reference Range Interpretation Comments Alk Phos (test code = Alk Phos) 55 39-136 [facility] [id number] 05:26:00 Test Item Value Reference Range Interpretation Comments Bili Total (test code = Bili Total) 0.5 0.2-1.3 [facility] HospitalLove[facility] [id number] 05:26:00 Test Item Value Reference Range Interpretation Comments Bili Direct (test code 0.1 See_Comment [Aut omated message] The = Bili Direct) system which generated this result tra nsmitted reference range : <=0.3. The reference r evelyn was not used to int erpret this result as alexia l/abnormal. [facility]2019-07-29 05:26:00 Test Item Value Reference Range Interpretation Comments Bili Indirect (test 0.4 See_Comment [Automa porsche message] The code = Bili Indirect) system which generated this result tra nsmitted reference range : <=1.0. The reference r evelyn was not used to int erpret this result as normal/abnormal . [facility]2019-07-29 05:26:00 Test Item Value Reference Range Interpretation Comments Globulin (test code = Globulin) 1.2 2.7-4.2 [facility]2019-07-29 05:26:00 Test Item Value Reference Range Interpretation Comments A/G Ratio (test code = A/G Ratio) 2.9 1 0.7-1.6 [id number] 05:26:00 Test Item Value Reference Range Interpretation Comments PT (test code = PT) 15.8 s 12.0-14.7 [id number] 05:26:00 Test Item Value Reference Range Interpretation Comments INR (test code = INR) 1.29 1 0.85-1.17 [id number] 05:26:00 Test Item Value Reference Range Interpretation Comments PTT (test code = PTT) 37.6 s 22.9-35.8 [id number] 05:26:00 Test Item Value Reference Range Interpretation Comments Fibrinogen Lvl (test code = Fibrinogen 241 230-510 Lvl) [facility]2019-07-28 05:48:00 Test Item Value Reference Range Interpretation Comments Total Protein (test code = Total 5.1 6.4-8.4 Protein) [facility]2019-07-28 05:48:00 Test Item Value Reference Range Interpretation Comments Albumin Lvl (test code = Albumin Lvl) 3.1 3.5-5.0 [facility]2019-07-28 05:48:00 Test Item Value Reference Range Interpretation Comments Globulin (test code = Globulin) 2.0 2.7-4.2 [facility]2019-07-28 05:48:00 Test Item Value Reference Range Interpretation Comments A/G Ratio (test code = A/G Ratio) 1.6 1 0.7-1.6 [facility]2019-07-28 05:48:00 Test Item Value Reference Range Interpretation Comments ALT (test code = ALT) 51 See_Comment [Auto mated message] The system which ge nerated this result transmit porsche reference range : <=65. The reference range was not used to interpr et this result as alexia l/abnormal. [facility]2019-07-28 05:48:00 Test Item Value Reference Range Interpretation Comments AST (test code = AST) 16 See_Comment [Auto mated message] The system which ge nerated this result transmit porsche reference range : <=37. The reference range was not used to interpr et this result as alexia l/abnormal. [facility]2019-07-28 05:48:00 Test Item Value Reference Range Interpretation Comments Alk Phos (test code = Alk Phos) 88 39-136 [facility]2019-07-28 05:48:00 Test Item Value Reference Range Interpretation Comments Bili Total (test code = Bili Total) 0.4 0.2-1.3 [facility]2019-07-28 05:48:00 Test Item Value Reference Range Interpretation Comments Bili Direct (test code 0.2 See_Comment [Aut omated message] The = Bili Direct) system which generated this result tra nsmitted reference range : <=0.3. The reference r evelyn was not used to int erpret this result as alexia l/abnormal. [facility]2019-07-28 05:48:00 Test Item Value Reference Range Interpretation Comments Bili Indirect (test 0.2 See_Comment [Automa porsche message] The code = Bili Indirect) system which generated this result tra nsmitted reference range : <=1.0. The reference r evelyn was not used to int erpret this result as normal/abnormal . [facility] AND [id number] 19:16:00 Test Item Value Reference Range Interpretation Comments UA Color (test code = Light Yellow UA Color) *NA*(12/25/18 2:16 PM) [facility] AND [id number] 19:16:00 Test Item Value Reference Range Interpretation Comments UA Turbidity (test code Slight *ABN*(12/25/18 = UA Turbidity) 2:16 PM) [facility] AND [id number] 19:16:00 Test Item Value Reference Range Interpretation Comments UA Spec Grav (test code = UA Spec 1.013 1 Grav) [facility] AND [id number] 19:16:00 Test Item Value Reference Range Interpretation Comments UA pH (test code = UA pH) 5.0 1 5.0-8.[address] [facility] AND [id number] 19:16:00 Test Item Value Reference Range Interpretation Comments UA Protein (test code = UA Negative mg/dL Protein) [facility] AND [id number] 19:16:00 Test Item Value Reference Range Interpretation Comments UA Glucose (test code = UA Glucose) 500 mg/dL [facility] AND [id number] 19:16:00 Test Item Value Reference Range Interpretation Comments UA Ketones (test code = UA Trace mg/dL Ketones) [facility] AND [id number] 19:16:00 Test Item Value Reference Range Interpretation Comments UA Bili (test code = Negative *NA*(12/25/18 UA Bili) 2:16 PM) [facility] AND [id number] 19:16:00 Test Item Value Reference Range Interpretation Comments UA Blood (test code = Negative (12/25/18 2:16 UA Blood) PM) [facility] AND [id number] 19:16:00 Test Item Value Reference Range Interpretation Comments UA Urobilinogen (test code = UA no gt 0.1-1.0 Urobilinogen) [facility] AND [id number] 19:16:00 Test Item Value Reference Range Interpretation Comments UA Nitrite (test code Negative (12/25/18 2:16 = UA Nitrite) PM) [facility] AND [id number] 19:16:00 Test Item Value Reference Range Interpretation Comments UA Leuk Est (test Negative (12/25/18 2:16 code = UA Leuk Est) PM) [facility] AND [id number] 19:16:00 Test Item Value Reference Range Interpretation Comments UA WBC (test code = 4 See_Comment [Automa porsche message] The UA WBC) system which ge nerated this result transmit porsche reference range : <=5. The reference range was not used to interpr et this result as alexia l/abnormal. [facility] [id number] 19:16:00 Test Item Value Reference Range Interpretation Comments UA RBC (test code = 1 See_Comment [Automa porsche message] The UA RBC) system which ge nerated this result transmit porsche reference range : <=2. The reference range was not used to interpr et this result as alexia l/abnormal. [facility] AND [id number] 19:16:00 Test Item Value Reference Range Interpretation Comments UA Sq Epi (test code = UA Sq Epi) None [facility]en [facility] [id number] 08:58:00 Test Item Value Reference Range Interpretation Comments Lactic Acid Lvl (test code = Lactic 1.8 0.5-2.2 Acid Lvl) [facility] [id number] 08:58:00 Test Item Value Reference Range Interpretation Comments Thrombin Time (test code = Thrombin 17.7 s 15.0-21.2 Time) [facility] [id number] 08:58:00 Test Item Value Reference Range Interpretation Comments D-Dimer (test code = D-Dimer) 2.84 [facility] HospitalBACTERIAL - [id number] 05:22:00 Test Item Value Reference Range Interpretation Comments MRSA by PCR (test Negative (12/25/18 12:22 code = MRSA by PCR) AM) [facility] HospitalCHEM [id number] 05:22:00 Test Item Value Reference Range Interpretation Comments Lactic Acid Lvl (test code = Lactic 2.3 0.5-2.2 Acid Lvl) [facility] [id number] 05:22:00 Test Item Value Reference Range Interpretation Comments U Amph Scr (test code Negative *NA*(12/25/18 = U Amph Scr) 12:22 AM) [facility] [id number] 05:22:00 Test Item Value Reference Range Interpretation Comments U Christine Scr (test code Negative *NA*(12/25/18 = U Christine Scr) 12:22 AM) [facility] HospitalDR[facility] [id number] 05:22:00 Test Item Value Reference Range Interpretation Comments U Benzodiaz Scr (test Positive *ABN*(12/25/18 code = U Benzodiaz Scr) 12:22 AM) [facility]annDR[facility] [id number] 05:22:00 Test Item Value Reference Range Interpretation Comments U Cocaine Scr (test Negative *NA*(12/25/18 code = U Cocaine Scr) 12:22 AM) [facility]DR[facility] [id number] 05:22:00 Test Item Value Reference Range Interpretation Comments U Cannab Scr (test Negative *NA*(12/25/18 code = U Cannab Scr) 12:22 AM) [facility]annDR[facility] [id number] 05:22:00 Test Item Value Reference Range Interpretation Comments U Opiate Scr (test Positive *ABN*(12/25/18 code = U Opiate Scr) 12:22 AM) [facility] [id number] 05:22:00 Test Item Value Reference Range Interpretation Comments U Phencyclidine Scr (test Negative code = U Phencyclidine *NA*(12/25/18 12:22 Scr) AM) [facility] HospitalDR[facility] [id number] 05:22:00 Test Item Value Reference Range Interpretation Comments UDS Note (test code = See Note (12/25/18 12:22 UDS Note) AM) [id number] 05:22:00 Test Item Value Reference Range Interpretation Comments Heparin Ab(SRIDEVI) Negative 7(12/25/18 (test code = Heparin 12:22 AM) Ab(SRIDEVI)) [facility] [id number] 05:22:00 Test Item Value Reference Range Interpretation Comments Pat Od Value (test code = Pat Od 0.215 1 Value) [facility] [id number] 05:22:00 Test Item Value Reference Range Interpretation Comments Pos CO Value (test code = Pos CO 0.400 1 Value) [facility] AND [id number] 05:22:00 Test Item Value Reference Range Interpretation Comments UA Color (test code = Veronique *ABN*(12/25/18 UA Color) 12:22 AM) [facility] [id number] 05:22:00 Test Item Value Reference Range Interpretation Comments UA Turbidity (test code Slight *ABN*(12/25/18 = UA Turbidity) 12:22 AM) [facility] AND [id number] 05:22:00 Test Item Value Reference Range Interpretation Comments UA Spec Grav (test code = UA Spec 1.029 1 Grav) [facility] AND [id number] 05:22:00 Test Item Value Reference Range Interpretation Comments UA pH (test code = UA pH) 5.0 1 5.0-8.[address] [facility] AND [id number] 05:22:00 Test Item Value Reference Range Interpretation Comments UA Protein (test code = UA Protein) 100 mg/dL [facility] AND [id number] 05:22:00 Test Item Value Reference Range Interpretation Comments UA Glucose (test code = UA Negative mg/dL Glucose) [facility] AND [id number] 05:22:00 Test Item Value Reference Range Interpretation Comments UA Ketones (test code = UA Trace mg/dL Ketones) [facility] AND [id number] 05:22:00 Test Item Value Reference Range Interpretation Comments UA Bili (test code = Negative *NA*(12/25/18 UA Bili) 12:22 AM) [facility] AND [id number] 05:22:00 Test Item Value Reference Range Interpretation Comments UA Blood (test code = Moderate *ABN*(12/25/18 UA Blood) 12:22 AM) [facility] AND [id number] 05:22:00 Test Item Value Reference Range Interpretation Comments UA Urobilinogen (test code = UA 4.0 0.1-1.0 Urobilinogen) [facility] AND [id number] 05:22:00 Test Item Value Reference Range Interpretation Comments UA Nitrite (test code Negative (12/25/18 12:22 = UA Nitrite) AM) [facility] AND [id number] 05:22:00 Test Item Value Reference Range Interpretation Comments UA Leuk Est (test Negative (12/25/18 12:22 code = UA Leuk Est) AM) [facility] AND [id number] 05:22:00 Test Item Value Reference Range Interpretation Comments UA Sq Epi (test code = UA Sq Epi) Few /LPF [facility] AND [id number] 05:22:00 Test Item Value Reference Range Interpretation Comments UA WBC (test code = 3 See_Comment [Automa porsche message] The UA WBC) system which ge nerated this result transmit porsche reference range : <=5. The reference range was not used to interpr et this result as alexia l/abnormal. [facility] AND [id number] 05:22:00 Test Item Value Reference Range Interpretation Comments UA RBC (test code = 37 See_Comment [Automa porsche message] The UA RBC) system which ge nerated this result transmit porsche reference range : <=2. The reference range was not used to interpr et this result as alexia l/abnormal. [facility] AND [id number] 05:22:00 Test Item Value Reference Range Interpretation Comments UA Bacteria (test code = UA Occasional /HPF Bacteria) [facility] AND [id number] 05:22:00 Test Item Value Reference Range Interpretation Comments UA Mucus (test code = UA Mucus) Few /LPF [facility] AND [id number] 05:22:00 Test Item Value Reference Range Interpretation Comments UA Renal Epi (test code = UA Renal Epi) [address] [facility] AND [id number] 05:22:00 Test Item Value Reference Range Interpretation Comments UA Hyal Cast (test 1 See_Comment [Automat ed message] The code = UA Hyal Cast) system which generated this result transmit porsche reference range : <=2. The reference range was not used to interpr et this result as alexia l/abnormal. [facility]:SUSC:PT:ISOLATE:ORDQN:[id number] 05:22:00 Test Item Value Reference Range Interpretation Comments Gram Stain Report Gram Stain Performed By: (test code = Gram [facility] Stain Report) [facility]:SUSC:PT:ISOLATE:ORDQN:[id number] 05:22:00 Test Item Value Reference Range Interpretation Comments Culture: Respiratory Moderate Staphylococcus w/Gram Stain (test aureus , Upon code = Culture: Supplemental Testing, Respiratory w/Gram This Isolate Was Found Stain) To Be 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 . Normal Respiratory Era Isolated [facility]:SUSC:PT:ISOLATE:ORDQN:[id number] 05:22:00 Test Item Value Reference Range Interpretation Comments Staphylococcus aureus Staphylococcus aureus (test code = Staphylococcus aureus) [facility] [id number] 23:54:00 Test Item Value Reference Range Interpretation Comments ABO/Rh (test code = ABO/Rh) O POS [facility] [id number] 23:54:00 Test Item Value Reference Range Interpretation Comments Antibody Scrn (test Negative 5(12/24/18 code = Antibody Scrn) 6:54 PM) [facility] HospitalCARDIAC [id number] 23:54:00 Test Item Value Reference Range Interpretation Comments Total CK (test code = Total CK) 62 12-191 [facility] HospitalLove[facility] [id number] 23:54:00 Test Item Value Reference Range Interpretation Comments Ammonia (test code = Ammonia) 27.0 [facility]2019-07-26 23:54:00 Test Item Value Reference Range Interpretation Comments Lactic Acid Lvl (test code = Lactic 5.0 0.5-2.2 Acid Lvl) [facility]2019-07-26 23:54:00 Test Item Value Reference Range Interpretation Comments Procalcitonin Lvl (test 11.80 See_Comment [Au tomated message] code = Procalcitonin Lvl) Th e system which generated this result transmitted ref erence range: <=0.10. The reference range was not used to interpr et this result as normal/abnormal . [facility] HospitalLove[facility] [id number] 16:13:00 Test Item Value Reference Range Interpretation Comments eGFR (test code = eGFR) 76 [facility]2019-07-01 16:13:00 Test Item Value Reference Range Interpretation Comments Creatinine Lvl (test code = Creatinine 0.79 0.50-1.40 Lvl) [facility]Love[facility] [id number] 16:13:00 Test Item Value Reference Range Interpretation Comments Glucose Lvl (test code = Glucose Lvl) 104 70-99 [facility] [id number] 16:13:00 Test Item Value Reference Range Interpretation Comments Potassium Lvl (test code = Potassium 4.2 3.5-5.1 Lvl) [facility]2019-07-01 16:13:00 Test Item Value Reference Range Interpretation Comments BUN (test code = BUN) 19 7-22 [facility] [id number] 16:13:00 Test Item Value Reference Range Interpretation Comments Calcium Lvl (test code = Calcium Lvl) 9.3 8.5-10.5 [facility] [id number] 16:13:00 Test Item Value Reference Range Interpretation Comments Sodium Lvl (test code = Sodium Lvl) 140 135-145 [facility] [id number] 16:13:00 Test Item Value Reference Range Interpretation Comments CO2 (test code = CO2) 30 24-32 [facility] [id number] 16:13:00 Test Item Value Reference Range Interpretation Comments Chloride Lvl (test code = Chloride Lvl) 104 95-109 [facility] [id number] 16:13:00 Test Item Value Reference Range Interpretation Comments AGAP (test code = AGAP) 10.2 10.0-20.[address] [facility] AND [id number] 15:09:00 Test Item Value Reference Range Interpretation Comments UA WBC (test code = UA WBC) 0-2 /HPF [facility] AND [id number] 15:09:00 Test Item Value Reference Range Interpretation Comments UA Bacteria (test code = UA Few /HPF Bacteria) [facility] AND [id number] 15:09:00 Test Item Value Reference Range Interpretation Comments UA Sq Epi (test code = UA Sq Moderate /LPF Epi) [facility] AND [id number] 15:09:00 Test Item Value Reference Range Interpretation Comments UA RBC (test None Seen See_Comment [Automated mes deandre] code = UA RBC) (11/29/18 10:09 The system w hich AM) generated this result transmitted ref erence range: <=2. The reference range was not used to int erpret this result as normal/abnormal . [facility] AND [id number] 15:09:00 Test Item Value Reference Range Interpretation Comments UA Mucus (test code = UA Mucus) Few /LPF [facility] AND [id number] 15:09:00 Test Item Value Reference Range Interpretation Comments UA CaOx Jagruti (test code = UA Moderate /HPF CaOx Jagruti) [facility] AND [id number] 15:09:00 Test Item Value Reference Range Interpretation Comments UA Urobilinogen (test code = UA 0.2 0.1-1.0 Urobilinogen) [facility] AND [id number] 15:09:00 Test Item Value Reference Range Interpretation Comments UA Blood (test code = Negative (11/29/18 10:09 UA Blood) AM) [facility] AND [id number] 15:09:00 Test Item Value Reference Range Interpretation Comments UA Nitrite (test code Negative (11/29/18 10:09 = UA Nitrite) AM) [facility] AND [id number] 15:09:00 Test Item Value Reference Range Interpretation Comments UA Bili (test code = Small *ABN*(11/29/18 UA Bili) 10:09 AM) [facility] AND [id number] 15:09:00 Test Item Value Reference Range Interpretation Comments UA Leuk Est (test Negative (11/29/18 10:09 code = UA Leuk Est) AM) [facility] AND [id number] 15:09:00 Test Item Value Reference Range Interpretation Comments UA Protein (test code = UA Protein) 100 mg/dL [facility] AND [id number] 15:09:00 Test Item Value Reference Range Interpretation Comments UA pH (test code = UA pH) 5.5 1 5.0-8.[address] [facility] AND [id number] 15:09:00 Test Item Value Reference Range Interpretation Comments UA Ketones (test code Negative *NA*(11/29/18 = UA Ketones) 10:09 AM) [facility] AND [id number] 15:09:00 Test Item Value Reference Range Interpretation Comments UA Glucose (test code Negative (11/29/18 10:09 = UA Glucose) AM) [facility] AND [id number] 15:09:00 Test Item Value Reference Range Interpretation Comments UA Color (test code = Yellow *NA*(11/29/18 UA Color) 10:09 AM) [facility] AND [id number] 15:09:00 Test Item Value Reference Range Interpretation Comments UA Turbidity (test code Slight Cloudy (11/29/18 = UA Turbidity) 10:09 AM) [facility] AND [id number] 15:09:00 Test Item Value Reference Range Interpretation Comments UA Spec Grav (test >=1.030 *ABN*(11/29/18 code = UA Spec Grav) 10:09 AM) [facility]] CMP [id number] 12:32:00 Test Item Value Reference Range Interpretation [...] 74 {ML/MIN/1.7} > OR = [address] [facility] (test code = eGFR NON-) eGFR 86 {ML/MIN/1.7} > OR = [address] [facility] (test code = eGFR ) BUN/CREATININE NOT [...] mg/dl 0.2-1.2 N Normal (test code = 22531-4) ALKALINE 156 u/l 33-130 PHSPHATASE (test code = ALKALINE PHSPHATASE) AST; Normal (test 34 u/l 10-35 N code = 1916-6) ALT; Above High 71 u/l 6-29 SPECIMEN REC EIVED DATE Threshold (test AND TIME: [id number] code = 1742-6) [facility]] CBC (INCLUDES DIFF/PLT)2018-11-18 12:32:00 Test Item Value Reference Range Interpretation Comments WHITE BLOOD CELL 12.2 3.8-10.8 COUNT (test code = {Thousand/u} WHITE BLOOD CELL COUNT) RED BLOOD CELL 4.89 3.80-5.10 N COUNT (test code = {Million/uL} RED BLOOD CELL COUNT) HEMAGLOBIN; Normal 15.4 g/dl 11.7-15.5 N (test code = 73514-6) HEMATOCRIT; Above 45.8 % 35.0-45.0 High Threshold (test code = 4544-3) MCV; Normal (test 93.7 fL 80.0-100.0 N code = 787-2) MCHC; Normal (test 33.6 g/dl 32.0-36.0 N code = 44265-4) RDW; Normal (test 14.4 % 11.0-15.0 N code = 788-0) PLATELET COUNT; 177 140-400 N Normal (test code {Thousand/u} = 777-3) MPV; Normal (test 11.0 fL 7.5-12.5 N code = 24453-1) ABSOLUTE 56153 3021-3945 NEUTROPHILS (test {cells/uL} code = ABSOLUTE NEUTROPHILS) ABSOLUTE 1171 615-3262 N LYMPHOCYTES (test {cells/uL} code = ABSOLUTE [...] Normal 1.7 % N (test code = 61828-0) EOSINOPHILS; 0.1 % N Normal (test code = 56558-0) BASOPHILS; Normal 0.2 % N (test code = 78677-9) COMMENT(S) (test See Comment Review of p eripheral code = COMMENT(S)) smear con firmsautomated results.SPECIME N RECEIVED DATE A ND TIME: [facility] views [id number] 10:03:00 PROCEDURE: Chest Radiograph.Clinical Indication: Pneumonia.Comparison: Chest radiograph 09/17/2018.FINDINGS:The chest shows minimal subsegmental atelectasis at the left lung base. Nofocal consolidationis identified. 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 Thereare calcified granulomata in the upper lobes.The cardiac silhouette is upper limits of normal in size. Degenerative changeinvolves the thoracic spine and shoulders. An old distal right claviclefracture is suspected.IMPRESSION:1. Minimal left lower lobe subsegmental atelectasis.SL:[id number]--Dsyk by: Eleazar Hamilton MDDictated Date/time: 11/18/18 10:49Electronically Signed by: Eleazar Hamilton MD 11/18/1909:52FINAL REPORTUn[facility] Bone Density [employer] [id number] 10:53:00BONE DENSITY ASSESSMENT: 10/21/2018CLINICAL DATA: Post menopausal [...] was performed 10/21/2018 on the AP L2- Z2beupud of spine using a Hologic unit. The [...] careprovider is recommended.This exam was interpreted at [id number] for Leticia 15. Betzy Caba M.D. ms/penrad:10/21/2018 12:45:40 Prover(s): Hailey Cornejo [facility]--Read by: Betzy Caba MDDictated Date/time: 10/21/18 12:45Electronically Signed by: Betzy Caba MD 10/22/1911:45FINAL REPORTUnEn[facility] [id number] 15:20:00 Test Item Value Reference Range Interpretation Comments MPV (test code = MPV) 10.6 7.4-10.4 [facility]HoppjpiXIMILQEDEB5108-02-87 15:20:00 Test Item Value Reference Range Interpretation Comments MCV (test code = MCV) 91.5 80.0-98.0 [facility]manOpwygyiOGOXEHXRQB2352-06-35 15:20:00 Test Item Value Reference Range Interpretation Comments Hct (test code = Hct) 42.9 36.0-48.0 [facility]manUcusveeQWZSNASILZ6939-17-82 15:20:00 Test Item Value Reference Range Interpretation Comments MCH (test code = MCH) 31.0 pg 27.0-31.0 [facility]manUhwbsujTRNWFLUTEE2619-16-31 15:20:00 Test Item Value Reference Range Interpretation Comments RDW (test code = RDW) 14.1 11.5-14.5 [facility]manDjdnpquFKYYLSQMHA6992-89-06 15:20:00 Test Item Value Reference Range Interpretation Comments MCHC (test code = MCHC) 33.8 32.0-36.0 [facility]manNffrzdoNBWTAYOAJG9606-54-60 15:20:00 Test Item Value Reference Range Interpretation Comments Platelet (test code = Platelet) 128 133-450 [facility]manIrtestuPDGVJXUHQL3025-90-91 15:20:00 Test Item Value Reference Range Interpretation Comments Hgb (test code = Hgb) 14.5 12.0-16.0 [facility]manIcjzoggGEUZHXRZAS5644-07-35 15:20:00 Test Item Value Reference Range Interpretation Comments WBC (test code = WBC) 10.8 3.7-10.4 [facility]manHwecdctGRBPWXEGJJ9286-39-56 15:20:00 Test Item Value Reference Range Interpretation Comments RBC (test code = RBC) 4.69 4.20-5.40 [facility]manUgnyuclEOKSMZXPMP7719-41-66 15:20:00 Test Item Value Reference Range Interpretation Comments Eosinophils # (test code 0.1 See_Comment [A utomated message] The = Eosinophils #) system whic h generated this result tra nsmitted reference range : <=0.5. The reference r evelyn was not used to int erpret this result as normal/abnormal . [facility]manKnheuyrVAXTZLFUKA2375-16-55 15:20:00 Test Item Value Reference Range Interpretation Comments Segs (test code = Segs) 70.7 45.0-75.0 [facility]manYgkebzpRSMCRJSTIZ9788-98-98 15:20:00 Test Item Value Reference Range Interpretation Comments Lymphocytes (test code = Lymphocytes) 21.8 20.0-40.0 [facility]manXwfamorNTIJRQBQCP7435-84-35 15:20:00 Test Item Value Reference Range Interpretation Comments Lymphocytes # (test code = Lymphocytes 2.4 1.0-5.5 #) [facility]manZmkxtyuLZZOAMEUJU8088-36-83 15:20:00 Test Item Value Reference Range Interpretation Comments Neutrophils # (test code = Neutrophils 7.6 1.5-8.1 #) [facility]manNmqhstdATINEZONGM1989-21-30 15:20:00 Test Item Value Reference Range Interpretation Comments Monocytes # (test code 0.7 See_Comment [Aut omated message] The = Monocytes #) system which generated this result tra nsmitted reference range : <=0.8. The reference r evelyn was not used to int erpret this result as normal/abnormal . [facility]manNiplucaEJBZSFSMEU4308-20-23 15:20:00 Test Item Value Reference Range Interpretation Comments Monocytes (test code = Monocytes) 6.7 2.0-12.0 [facility]manMddfkiwPDITBAMMBL6194-36-71 15:20:00 Test Item Value Reference Range Interpretation Comments Basophils (test code = 0.3 See_Comment [Aut omated message] The Basophils) system which ge nerated this result tra nsmitted reference range : <=1.0. The reference r evelyn was not used to int erpret this result as normal/abnormal . [facility]manQiyxscyDNSMEARQRJ9125-30-47 15:20:00 Test Item Value Reference Range Interpretation Comments Eosinophils (test code = 0.5 See_Comment [A utomated message] The Eosinophils) system which ge nerated this result tra nsmitted reference range : <=4.0. The reference r evelyn was not used to int erpret this result as normal/abnormal . [facility]2019-04-25 10:38:00 Test Item Value Reference Range Interpretation Comments Magnesium Lvl (test code = Magnesium 2.2 1.8-2.4 Lvl) [facility]2019-04-25 10:38:00 Test Item Value Reference Range Interpretation Comments Phosphorus (test code = Phosphorus) 3.0 2.5-4.5 [facility]2019-04-25 10:38:00 Test Item Value Reference Range Interpretation Comments eGFR (test code = eGFR) 69 [facility]2019-04-25 10:38:00 Test Item Value Reference Range Interpretation Comments CO2 (test code = CO2) 28 24-32 [facility]2019-04-25 10:38:00 Test Item Value Reference Range Interpretation Comments Sodium Lvl (test code = Sodium Lvl) 141 135-145 [facility]2019-04-25 10:38:00 Test Item Value Reference Range Interpretation Comments Potassium Lvl (test code = Potassium 3.8 3.5-5.1 Lvl) [facility]2019-04-25 10:38:00 Test Item Value Reference Range Interpretation Comments Chloride Lvl (test code = Chloride Lvl) 107 95-109 [facility]2019-04-25 10:38:00 Test Item Value Reference Range Interpretation Comments AGAP (test code = AGAP) 9.8 10.0-20.0 [facility]2019-04-25 10:38:00 Test Item Value Reference Range Interpretation Comments Calcium Lvl (test code = Calcium Lvl) 8.1 8.5-10.5 [facility]2019-04-25 10:38:00 Test Item Value Reference Range Interpretation Comments BUN (test code = BUN) 23 7-22 [facility]2019-04-25 10:38:00 Test Item Value Reference Range Interpretation Comments Creatinine Lvl (test code = Creatinine 0.86 0.50-1.40 Lvl) [facility]2019-04-25 10:38:00 Test Item Value Reference Range Interpretation Comments Glucose Lvl (test code = Glucose Lvl) 43 70-99 [facility]manRnykpnbSJGAHDEGJV5445-00-32 10:38:00 Test Item Value Reference Range Interpretation Comments Hgb (test code = Hgb) 14.6 12.0-16.0 [facility]manKknspqqBDOJIHNZBK6366-00-75 10:38:00 Test Item Value Reference Range Interpretation Comments Hct (test code = Hct) 44.7 36.0-48.0 [facility]manDowmrzgSBHUAIHJUE9256-97-69 10:38:00 Test Item Value Reference Range Interpretation Comments RBC (test code = RBC) 4.85 4.20-5.40 [facility]manLahvksxLHGSCQYIVL7154-02-15 10:38:00 Test Item Value Reference Range Interpretation Comments WBC (test code = WBC) 14.1 3.7-10.4 [facility]manUfhyuxlKNCYSDKYWX3798-50-68 10:38:00 Test Item Value Reference Range Interpretation Comments MPV (test code = MPV) 10.9 7.4-10.4 [facility]manVltjhkjTZGVDIUFZW5934-07-83 10:38:00 Test Item Value Reference Range Interpretation Comments RDW (test code = RDW) 14.2 11.5-14.5 [facility]manUshldbrUGFRLLALEC5362-31-12 10:38:00 Test Item Value Reference Range Interpretation Comments Platelet (test code = Platelet) 114 133-450 [facility]manOmxkzojBODZVHQWVJ6345-45-70 10:38:00 Test Item Value Reference Range Interpretation Comments MCV (test code = MCV) 92.2 80.0-98.0 [facility]manQlahibyOPHDTFKUDD0761-06-76 10:38:00 Test Item Value Reference Range Interpretation Comments MCH (test code = MCH) 30.1 pg 27.0-31.0 [facility]manSrkwgndFAWATRMEHF6405-92-22 10:38:00 Test Item Value Reference Range Interpretation Comments MCHC (test code = MCHC) 32.6 32.0-36.0 [facility] [id number] 10:38:00 Test Item Value Reference Range Interpretation Comments Ca Norm WB (test code = Ca Norm WB) 1.05 1.05-1.25 [facility]2019-04-25 10:38:00 Test Item Value Reference Range Interpretation Comments Ca Ion WB (test code = Ca Ion WB) 1.00 1.05-1.25 [facility]2019-04-24 06:22:00 Test Item Value Reference Range Interpretation Comments Bili Total (test code = Bili Total) 0.6 0.2-1.3 [facility]2019-04-24 06:22:00 Test Item Value Reference Range Interpretation Comments AST (test code = AST) 35 See_Comment [Auto mated message] The system which ge nerated this result transmit porsche reference range : <=37. The reference range was not used to interpr et this result as alexia l/abnormal. [facility]2019-04-24 06:22:00 Test Item Value Reference Range Interpretation Comments Alk Phos (test code = Alk Phos) 95 39-136 [facility]2019-04-24 06:22:00 Test Item Value Reference Range Interpretation Comments ALT (test code = ALT) 47 See_Comment [Auto mated message] The system which ge nerated this result transmit porsche reference range : <=65. The reference range was not used to interpr et this result as alexia l/abnormal. [facility] HospitalLovejuice [id number] 06:22:00 Test Item Value Reference Range Interpretation Comments eGFR (test code = eGFR) 52 [facility]2019-04-24 06:22:00 Test Item Value Reference Range Interpretation Comments Albumin Lvl (test code = Albumin Lvl) 2.3 3.5-5.0 [facility]2019-04-24 06:22:00 Test Item Value Reference Range Interpretation Comments Total Protein (test code = Total 7.1 6.4-8.4 Protein) [facility]2019-04-24 06:22:00 Test Item Value Reference Range Interpretation Comments CO2 (test code = CO2) 26 24-32 [facility]2019-04-24 06:22:00 Test Item Value Reference Range Interpretation Comments Calcium Lvl (test code = Calcium Lvl) 8.1 8.5-10.5 [facility]2019-04-24 06:22:00 Test Item Value Reference Range Interpretation Comments Chloride Lvl (test code = Chloride Lvl) 102 95-109 [facility]2019-04-24 06:22:00 Test Item Value Reference Range Interpretation Comments Potassium Lvl (test code = Potassium 4.3 3.5-5.1 Lvl) [facility]2019-04-24 06:22:00 Test Item Value Reference Range Interpretation Comments Sodium Lvl (test code = Sodium Lvl) 135 135-145 [facility]2019-04-24 06:22:00 Test Item Value Reference Range Interpretation Comments Creatinine Lvl (test code = Creatinine 1.07 0.50-1.40 Lvl) [facility]2019-04-24 06:22:00 Test Item Value Reference Range Interpretation Comments Glucose Lvl (test code = Glucose Lvl) 272 70-99 [facility]2019-04-24 06:22:00 Test Item Value Reference Range Interpretation Comments BUN (test code = BUN) 29 7-22 [facility]2019-04-24 06:22:00 Test Item Value Reference Range Interpretation Comments Globulin (test code = Globulin) 4.8 2.7-4.2 [facility]2019-04-24 06:22:00 Test Item Value Reference Range Interpretation Comments A/G Ratio (test code = A/G Ratio) 0.5 1 0.7-1.6 [facility]2019-04-24 06:22:00 Test Item Value Reference Range Interpretation Comments B/C Ratio (test code = B/C Ratio) 27 1 6-25 [facility]2019-04-24 06:22:00 Test Item Value Reference Range Interpretation Comments AGAP (test code = AGAP) 11.3 10.0-20.0 [facility]manDrxrfxnNVRJQOCSRH2869-97-19 06:22:00 Test Item Value Reference Range Interpretation Comments Monocytes (test code = Monocytes) 6.5 2.0-12.0 [facility]manSbujejeZOVBUNDHZF1207-90-09 06:22:00 Test Item Value Reference Range Interpretation Comments Eosinophils (test code = 0.1 See_Comment [A utomated message] The Eosinophils) system which ge nerated this result tra nsmitted reference range : <=4.0. The reference r evelyn was not used to int erpret this result as normal/abnormal . [facility]manLayefxoFTQRNHRKOD7163-60-31 06:22:00 Test Item Value Reference Range Interpretation Comments Basophils (test code = 0.2 See_Comment [Aut omated message] The Basophils) system which ge nerated this result tra nsmitted reference range : <=1.0. The reference r evelyn was not used to int erpret this result as normal/abnormal . [facility]manUzbzoleYTOQEADHEV0766-47-98 06:22:00 Test Item Value Reference Range Interpretation Comments Segs (test code = Segs) 73.8 45.0-75.0 [facility]manCgfucemTHWWYTZBPE8457-69-61 06:22:00 Test Item Value Reference Range Interpretation Comments Lymphocytes (test code = Lymphocytes) 19.4 20.0-40.0 [facility]manEwdutxlSMQJCFOEQB9389-96-29 06:22:00 Test Item Value Reference Range Interpretation Comments Neutrophils # (test code = Neutrophils 6.0 1.5-8.1 #) [facility]manNrxgakeXGGCUTQDMP2023-81-41 06:22:00 Test Item Value Reference Range Interpretation Comments Lymphocytes # (test code = Lymphocytes 1.6 1.0-5.5 #) [facility]manCdvwszoDDBQPNAJDG2578-20-73 06:22:00 Test Item Value Reference Range Interpretation Comments Monocytes # (test code 0.5 See_Comment [Aut omated message] The = Monocytes #) system which generated this result tra nsmitted reference range : <=0.8. The reference r evelyn was not used to int erpret this result as normal/abnormal . [facility]manDlumvflQFWBFKTBOH1085-67-74 06:22:00 Test Item Value Reference Range Interpretation Comments MPV (test code = MPV) 11.3 7.4-10.4 [facility]manQczeibyPNXSLQVPWZ1022-24-81 06:22:00 Test Item Value Reference Range Interpretation Comments MCHC (test code = MCHC) 33.1 32.0-36.0 [facility]manKeioycxIECUEBGTLS3754-98-35 06:22:00 Test Item Value Reference Range Interpretation Comments RDW (test code = RDW) 14.0 11.5-14.5 [facility]manFeveylqIQGQOHCLYP2196-75-99 06:22:00 Test Item Value Reference Range Interpretation Comments Platelet (test code = Platelet) 106 133-450 [facility]manFnebemtSONVQSWMTB6856-73-01 06:22:00 Test Item Value Reference Range Interpretation Comments MCV (test code = MCV) 93.1 80.0-98.0 [facility]manZzwbbgfHDARUPAKPK1711-99-66 06:22:00 Test Item Value Reference Range Interpretation Comments Hct (test code = Hct) 44.2 36.0-48.0 [facility]manIczcywjJIILOJPZLP9788-16-19 06:22:00 Test Item Value Reference Range Interpretation Comments MCH (test code = MCH) 30.8 pg 27.0-31.0 [facility]manMrgzmwvHYSKUBPDVX7629-59-32 06:22:00 Test Item Value Reference Range Interpretation Comments RBC (test code = RBC) 4.74 4.20-5.40 [facility]manUbndkxoWKGZIXWAKE7349-22-44 06:22:00 Test Item Value Reference Range Interpretation Comments WBC (test code = WBC) 8.1 3.7-10.4 [facility]manZrjcmifDJJOITLQTQ0344-74-92 06:22:00 Test Item Value Reference Range Interpretation Comments Hgb (test code = Hgb) 14.6 12.0-16.0 [facility]CHEM VVVLP9058-64-03 07:00:00 Test Item Value Reference Range Interpretation Comments Phosphorus (test code = Phosphorus) 3.3 2.5-4.5 [facility] HospitalCHEM [id number] 07:00:00 Test Item Value Reference Range Interpretation Comments Magnesium Lvl (test code = Magnesium 2.0 1.8-2.4 Lvl) [facility]2019-04-20 07:00:00 Test Item Value Reference Range Interpretation Comments eGFR (test code = eGFR) 70 [facility]2019-04-20 07:00:00 Test Item Value Reference Range Interpretation Comments Calcium Lvl (test code = Calcium Lvl) 8.7 8.5-10.5 [facility]2019-04-20 07:00:00 Test Item Value Reference Range Interpretation Comments Creatinine Lvl (test code = Creatinine 0.84 0.50-1.40 Lvl) [facility]2019-04-20 07:00:00 Test Item Value Reference Range Interpretation Comments Sodium Lvl (test code = Sodium Lvl) 142 135-145 [facility]2019-04-20 07:00:00 Test Item Value Reference Range Interpretation Comments BUN (test code = BUN) 32 7-22 [facility]2019-04-20 07:00:00 Test Item Value Reference Range Interpretation Comments Chloride Lvl (test code = Chloride Lvl) 106 95-109 [facility]2019-04-20 07:00:00 Test Item Value Reference Range Interpretation Comments CO2 (test code = CO2) 32 24-32 [facility]2019-04-20 07:00:00 Test Item Value Reference Range Interpretation Comments Potassium Lvl (test code = Potassium 3.9 3.5-5.1 Lvl) [facility]2019-04-20 07:00:00 Test Item Value Reference Range Interpretation Comments Glucose Lvl (test code = Glucose Lvl) 107 70-99 [facility]2019-04-20 07:00:00 Test Item Value Reference Range Interpretation Comments AGAP (test code = AGAP) 7.9 10.0-20.0 [facility]manTfpijnjYKWABSEGBX9687-32-75 07:00:00 Test Item Value Reference Range Interpretation Comments Monocytes # (test code 0.7 See_Comment [Aut omated message] The = Monocytes #) system which generated this result tra nsmitted reference range : <=0.8. The reference r evelyn was not used to int erpret this result as normal/abnormal . [facility]manQfzpiyoUUMHERPZFR7034-04-12 07:00:00 Test Item Value Reference Range Interpretation Comments Lymphocytes # (test code = Lymphocytes 1.7 1.0-5.5 #) [facility]manXrbalieYEBKYIUNXT2699-21-63 07:00:00 Test Item Value Reference Range Interpretation Comments Neutrophils # (test code = Neutrophils 6.0 1.5-8.1 #) [facility]manBztrkysIQRFNARICL9212-16-72 07:00:00 Test Item Value Reference Range Interpretation Comments Basophils (test code = 0.1 See_Comment [Aut omated message] The Basophils) system which ge nerated this result tra nsmitted reference range : <=1.0. The reference r evelyn was not used to int erpret this result as normal/abnormal . [facility]BtskvotMJTYUWFMCY2574-50-40 07:00:00 Test Item Value Reference Range Interpretation Comments Monocytes (test code = Monocytes) 8.5 2.0-12.0 [facility]QjgbwswGAEHFYYAKR5306-93-60 07:00:00 Test Item Value Reference Range Interpretation Comments Lymphocytes (test code = Lymphocytes) 20.3 20.0-40.0 [facility]TmekspvQXAJYLIGPA2634-45-50 07:00:00 Test Item Value Reference Range Interpretation Comments Segs (test code = Segs) 71.1 45.0-75.0 [facility]PyxblziRAWFCTWCDW8800-38-62 07:00:00 Test Item Value Reference Range Interpretation Comments MCHC (test code = MCHC) 33.8 32.0-36.0 [facility]YfifcnjZMQKMIXYKF6204-41-79 07:00:00 Test Item Value Reference Range Interpretation Comments RDW (test code = RDW) 14.1 11.5-14.5 [facility]manRyvjkkzXYQFENVLYC7321-99-42 07:00:00 Test Item Value Reference Range Interpretation Comments MCH (test code = MCH) 31.2 pg 27.0-31.0 [facility]VnwkvciWPFFKIIYJP2156-09-71 07:00:00 Test Item Value Reference Range Interpretation Comments MCV (test code = MCV) 92.2 80.0-98.0 [facility]manItlpamlTCBEHGFRES2078-01-05 07:00:00 Test Item Value Reference Range Interpretation Comments Hct (test code = Hct) 44.7 36.0-48.0 [facility]manOgjdsxhUQAZUIZCAQ4546-92-37 07:00:00 Test Item Value Reference Range Interpretation Comments RBC (test code = RBC) 4.85 4.20-5.40 [facility]XcwilupQFTICVVPDK4544-63-40 07:00:00 Test Item Value Reference Range Interpretation Comments WBC (test code = WBC) 8.5 3.7-10.4 [facility]manDeoxsrlSRLIYCBJXX7445-26-61 07:00:00 Test Item Value Reference Range Interpretation Comments Hgb (test code = Hgb) 15.1 12.0-16.0 [facility]YhkbmagCKOVEFDHZM1414-87-01 07:00:00 Test Item Value Reference Range Interpretation Comments MPV (test code = MPV) 11.8 7.4-10.4 [facility]YnlxrxnAPMEGSTXHL1972-98-69 07:00:00 Test Item Value Reference Range Interpretation Comments Platelet (test code = Platelet) 81 133-450 [facility] HospitalPARATHYROID [id number] 07:00:00 Test Item Value Reference Range Interpretation Comments Ca Ion WB (test code = Ca Ion WB) 1.09 1.05-1.25 [facility]2019-04-20 07:00:00 Test Item Value Reference Range Interpretation Comments Ca Norm WB (test code = Ca Norm WB) 1.09 1.05-1.25 [facility]2019-04-19 06:12:00 Test Item Value Reference Range Interpretation Comments Magnesium Lvl (test code = Magnesium 2.0 1.8-2.4 Lvl) [facility]2019-04-19 06:12:00 Test Item Value Reference Range Interpretation Comments Calcium Lvl (test code = Calcium Lvl) 8.6 8.5-10.5 [facility]2019-04-19 06:12:00 Test Item Value Reference Range Interpretation Comments AGAP (test code = AGAP) 6.4 10.0-20.0 [facility]2019-04-19 06:12:00 Test Item Value Reference Range Interpretation Comments eGFR (test code = eGFR) 70 [facility]2019-04-19 06:12:00 Test Item Value Reference Range Interpretation Comments Potassium Lvl (test code = Potassium 3.4 3.5-5.1 Lvl) [facility]2019-04-19 06:12:00 Test Item Value Reference Range Interpretation Comments Sodium Lvl (test code = Sodium Lvl) 142 135-145 [facility]2019-04-19 06:12:00 Test Item Value Reference Range Interpretation Comments Chloride Lvl (test code = Chloride Lvl) 104 95-109 [facility]2019-04-19 06:12:00 Test Item Value Reference Range Interpretation Comments Creatinine Lvl (test code = Creatinine 0.84 0.50-1.40 Lvl) [facility]2019-04-19 06:12:00 Test Item Value Reference Range Interpretation Comments CO2 (test code = CO2) 35 24-32 [place] 614039-04-19 06:12:00 Test Item Value Reference Range Interpretation Comments Glucose Lvl (test code = Glucose Lvl) 112 70-99 [facility]2019-04-19 06:12:00 Test Item Value Reference Range Interpretation Comments BUN (test code = BUN) 37 7-22 [facility]2019-04-19 06:12:00 Test Item Value Reference Range Interpretation Comments Phosphorus (test code = Phosphorus) 2.6 2.5-4.5 [facility]ApfsvfeMTVXTCIZQP4940-06-08 06:12:00 Test Item Value Reference Range Interpretation Comments Platelet (test code = Platelet) 71 133-450 [facility]manCzeingwPJYKQHTETV2749-28-17 06:12:00 Test Item Value Reference Range Interpretation Comments MCHC (test code = MCHC) 33.1 32.0-36.0 [facility]NtprdjiGKHNSHFHBY8307-43-21 06:12:00 Test Item Value Reference Range Interpretation Comments MPV (test code = MPV) 10.7 7.4-10.4 [facility]manWfbklqlIDXXLXUKAI8280-91-88 06:12:00 Test Item Value Reference Range Interpretation Comments RDW (test code = RDW) 14.1 11.5-14.5 [facility]QnjyqhrQTTFLXDTQP4659-90-91 06:12:00 Test Item Value Reference Range Interpretation Comments MCH (test code = MCH) 30.4 pg 27.0-31.0 [facility]CgxhkycEAZHXWYAXW1177-90-50 06:12:00 Test Item Value Reference Range Interpretation Comments WBC (test code = WBC) 9.7 3.7-10.4 [facility]manAbxedpgDEHFOQFNKQ8690-27-14 06:12:00 Test Item Value Reference Range Interpretation Comments MCV (test code = MCV) 92.0 80.0-98.0 [facility]manRcogvtxUTJQKXHSZU9411-64-96 06:12:00 Test Item Value Reference Range Interpretation Comments Hct (test code = Hct) 44.7 36.0-48.0 [facility]manWjafppxFPUDULJCLG6984-84-10 06:12:00 Test Item Value Reference Range Interpretation Comments RBC (test code = RBC) 4.86 4.20-5.40 [facility]QdxkeqhDLFWLLQDLZ4176-36-10 06:12:00 Test Item Value Reference Range Interpretation Comments Hgb (test code = Hgb) 14.8 12.0-16.0 [facility]manCrplexlDCLVMXDNKD0651-47-17 06:12:00 Test Item Value Reference Range Interpretation Comments Lymphocytes # (test code = Lymphocytes 1.4 1.0-5.5 #) [facility]manMbhegbyCIIDYQFKLG8458-06-22 06:12:00 Test Item Value Reference Range Interpretation Comments Neutrophils # (test code = Neutrophils 7.6 1.5-8.1 #) [facility]manTqhbapeKUXLGYAPXK6566-69-80 06:12:00 Test Item Value Reference Range Interpretation Comments Monocytes (test code = Monocytes) 7.0 2.0-12.0 [facility]manDvmfhkxKRKDQRYTPD6482-66-68 06:12:00 Test Item Value Reference Range Interpretation Comments Basophils (test code = 0.5 See_Comment [Aut omated message] The Basophils) system which ge nerated this result tra nsmitted reference range : <=1.0. The reference r evelyn was not used to int erpret this result as normal/abnormal . [facility]manLpngdrnGRRHEJDJAC4180-32-34 06:12:00 Test Item Value Reference Range Interpretation Comments Lymphocytes (test code = Lymphocytes) 14.4 20.0-40.0 [facility]manIakegtmUZKVOJUEFJ5293-35-30 06:12:00 Test Item Value Reference Range Interpretation Comments Monocytes # (test code 0.7 See_Comment [Aut omated message] The = Monocytes #) system which generated this result tra nsmitted reference range : <=0.8. The reference r evelyn was not used to int erpret this result as normal/abnormal . [facility]manCzotizaFNREGSFOXE1985-67-48 06:12:00 Test Item Value Reference Range Interpretation Comments Segs (test code = Segs) 78.1 45.0-75.0 [facility] [id number] 06:12:00 Test Item Value Reference Range Interpretation Comments Ca Ion WB (test code = Ca Ion WB) 1.11 1.05-1.25 [facility] HospitalATHYROID IHNIJOR5076-15-08 06:12:00 Test Item Value Reference Range Interpretation Comments Ca Norm WB (test code = Ca Norm WB) 1.14 1.05-1.25 [facility] HospitalCHEM HIZBF0180-90-04 05:36:00 Test Item Value Reference Range Interpretation Comments Magnesium Lvl (test code = Magnesium 2.1 1.8-2.4 Lvl) [facility]2019-04-18 05:36:00 Test Item Value Reference Range Interpretation Comments Phosphorus (test code = Phosphorus) 2.0 2.5-4.5 [facility]LhyqscuCHVJFWVQHODE7154-96-43 05:36:00 Test Item Value Reference Range Interpretation Comments AGAP (test code = AGAP) 8.1 10.0-20.0 [facility] MichiganEpunimrQCQPTBOOKTZZ5566-07-28 05:36:00 Test Item Value Reference Range Interpretation Comments eGFR (test code = eGFR) 47 [facility] MichiganWkvbhroCYZSADQFCKBO7575-01-33 05:36:00 Test Item Value Reference Range Interpretation Comments CO2 (test code = CO2) 33 24-32 [facility] MichiganJbhwuieQSWWCKMQNYZL1427-37-44 05:36:00 Test Item Value Reference Range Interpretation Comments Calcium Lvl (test code = Calcium Lvl) 8.4 8.5-10.5 [facility] MichiganDayhdcsLEGEUNIFXQNM3254-61-37 05:36:00 Test Item Value Reference Range Interpretation Comments Potassium Lvl (test code = Potassium 4.1 3.5-5.1 Lvl) [facility] MichiganSufkwyxMYUZMSTKTUUR4614-71-21 05:36:00 Test Item Value Reference Range Interpretation Comments Chloride Lvl (test code = Chloride Lvl) 102 95-109 [facility] MichiganXqrblwuOXXBZWBMUKMH2764-17-68 05:36:00 Test Item Value Reference Range Interpretation Comments Sodium Lvl (test code = Sodium Lvl) 139 135-145 [facility] MichiganGfjfnrdIJLSFFQFKQTR3444-97-41 05:36:00 Test Item Value Reference Range Interpretation Comments BUN (test code = BUN) 37 7-22 [facility] MichiganIbyxyphEBIKRGSSJKJM9167-10-79 05:36:00 Test Item Value Reference Range Interpretation Comments Creatinine Lvl (test code = Creatinine 1.17 0.50-1.40 Lvl) [facility] MichiganPxjbohcXYDUZMFRKLSC0312-73-60 05:36:00 Test Item Value Reference Range Interpretation Comments Glucose Lvl (test code = Glucose Lvl) 302 70-99 [facility]CploinzRGNMZYUYFB3997-75-88 05:36:00 Test Item Value Reference Range Interpretation Comments Platelet (test code = Platelet) 77 133-450 [facility]manBurltmxEPRWTAEFZX3187-31-24 05:36:00 Test Item Value Reference Range Interpretation Comments MCHC (test code = MCHC) 33.5 32.0-36.0 [facility]manGytdwsjUPFYMSDCWX1511-72-49 05:36:00 Test Item Value Reference Range Interpretation Comments RDW (test code = RDW) 14.2 11.5-14.5 [facility]manVhoqgskNWXHYZLBOO8897-13-75 05:36:00 Test Item Value Reference Range Interpretation Comments MPV (test code = MPV) 11.1 7.4-10.4 [facility]manXzkwmnzBOKYGKLXJX9954-26-92 05:36:00 Test Item Value Reference Range Interpretation Comments MCV (test code = MCV) 92.4 80.0-98.0 [facility]CfjxxzaCOXSLRRWEF9270-21-93 05:36:00 Test Item Value Reference Range Interpretation Comments MCH (test code = MCH) 31.0 pg 27.0-31.0 [facility]manMcdzqaqRKEUUGMNQA3134-53-66 05:36:00 Test Item Value Reference Range Interpretation Comments Hct (test code = Hct) 41.6 36.0-48.0 [facility]manNhziexuXTNBIVVRSC3349-01-49 05:36:00 Test Item Value Reference Range Interpretation Comments RBC (test code = RBC) 4.50 4.20-5.40 [facility]CvplpjiOHQMYPYPCP8429-34-88 05:36:00 Test Item Value Reference Range Interpretation Comments Hgb (test code = Hgb) 14.0 12.0-16.0 [facility]OdbrwmyBTCNGDDGEJ6467-65-73 05:36:00 Test Item Value Reference Range Interpretation Comments WBC (test code = WBC) 10.6 3.7-10.4 [facility]manAlqzhzcPMEOPAJKKQ9015-34-82 05:36:00 Test Item Value Reference Range Interpretation Comments Neutrophils # (test code = Neutrophils 8.8 1.5-8.1 #) [facility]manDohcubvCZJXIZNUDB1711-02-89 05:36:00 Test Item Value Reference Range Interpretation Comments Monocytes # (test code 0.7 See_Comment [Aut omated message] The = Monocytes #) system which generated this result tra nsmitted reference range : <=0.8. The reference r evelyn was not used to int erpret this result as normal/abnormal . [facility]manMncgenaKXFJMXKTBT3537-65-00 05:36:00 Test Item Value Reference Range Interpretation Comments Basophils (test code = 0.3 See_Comment [Aut omated message] The Basophils) system which ge nerated this result tra nsmitted reference range : <=1.0. The reference r evelyn was not used to int erpret this result as normal/abnormal . [facility]manIdlhtueGSCHIBDOXO7373-78-44 05:36:00 Test Item Value Reference Range Interpretation Comments Lymphocytes # (test code = Lymphocytes 1.0 1.0-5.5 #) [facility]manKpathnvELVSXXBIGR1666-50-76 05:36:00 Test Item Value Reference Range Interpretation Comments Segs (test code = Segs) 83.3 45.0-75.0 [facility]manZmrbpmiERUJUFQAMX5168-66-66 05:36:00 Test Item Value Reference Range Interpretation Comments Lymphocytes (test code = Lymphocytes) 9.9 20.0-40.0 [facility]manDfykyrqIEKXEYZXMQ1338-98-65 05:36:00 Test Item Value Reference Range Interpretation Comments Monocytes (test code = Monocytes) 6.5 2.0-12.0 [facility]2019-04-18 05:36:00 Test Item Value Reference Range Interpretation Comments Ca Norm WB (test code = Ca Norm WB) 1.13 1.05-1.25 [facility]RO[facility] IWSWKPK1517-99-95 05:36:00 Test Item Value Reference Range Interpretation Comments Ca Ion WB (test code = Ca Ion WB) 1.13 1.05-1.[address] [facility] AND [id number] 22:04:00 Test Item Value Reference Range Interpretation Comments UA Renal Epi (test code = UA Renal Epi) [address] [facility] AND [id number] 22:04:00 Test Item Value Reference Range Interpretation Comments UA Bacteria (test code = UA Occasional /HPF Bacteria) [facility] AND [id number] 22:04:00 Test Item Value Reference Range Interpretation Comments UA Mucus (test code = UA Mucus) Few /LPF [facility] AND [id number] 22:04:00 Test Item Value Reference Range Interpretation Comments UA Hyal Cast (test 1 See_Comment [Automat ed message] The code = UA Hyal Cast) system which generated this result transmit porsche reference range : <=2. The reference range was not used to interpr et this result as alexia l/abnormal. [facility] AND [id number] 22:04:00 Test Item Value Reference Range Interpretation Comments UA Amorph Jagruti (test code = Occasional /HPF UA Amorph Jagruti) [facility] AND [id number] 22:04:00 Test Item Value Reference Range Interpretation Comments UA Protein (test code = UA Protein) 30 mg/dL [facility] AND [id number] 22:04:00 Test Item Value Reference Range Interpretation Comments UA pH (test code = UA pH) 5.5 1 5.0-8.[address] [facility] AND [id number] 22:04:00 Test Item Value Reference Range Interpretation Comments UA Glucose (test code = 250 *ABN*(09/15/18 UA Glucose) 5:04 PM) [facility] AND [id number] 22:04:00 Test Item Value Reference Range Interpretation Comments UA Ketones (test code Negative *NA*(09/15/18 = UA Ketones) 5:04 PM) [facility] AND [id number] 22:04:00 Test Item Value Reference Range Interpretation Comments UA WBC (test code = 5 See_Comment [Automa porsche message] The UA WBC) system which ge nerated this result transmit porsche reference range : <=5. The reference range was not used to interpr et this result as alexia l/abnormal. [facility] AND [id number] 22:04:00 Test Item Value Reference Range Interpretation Comments UA RBC (test code = 4 See_Comment [Automa porsche message] The UA RBC) system which ge nerated this result transmit porsche reference range : <=2. The reference range was not used to interpr et this result as alexia l/abnormal. [facility] [id number] 22:04:00 Test Item Value Reference Range Interpretation Comments UA Sq Epi (test code = UA Sq Occasional /LPF Epi) [facility] [id number] 22:04:00 Test Item Value Reference Range Interpretation Comments UA Leuk Est (test Negative (09/15/18 5:04 code = UA Leuk Est) PM) [facility] [id number] 22:04:00 Test Item Value Reference Range Interpretation Comments UA Blood (test code = Negative (09/15/18 5:04 UA Blood) PM) [facility] [id number] 22:04:00 Test Item Value Reference Range Interpretation Comments UA Urobilinogen (test code = UA 0.2 0.1-1.0 Urobilinogen) [facility] [id number] 22:04:00 Test Item Value Reference Range Interpretation Comments UA Nitrite (test code Negative (09/15/18 5:04 = UA Nitrite) PM) [facility] [id number] 22:04:00 Test Item Value Reference Range Interpretation Comments UA Bili (test code = Negative *NA*(09/15/18 UA Bili) 5:04 PM) [facility] [id number] 22:04:00 Test Item Value Reference Range Interpretation Comments UA Spec Grav (test code = UA Spec 1.025 1 Grav) [facility] AND [id number] 22:04:00 Test Item Value Reference Range Interpretation Comments UA Turbidity (test code = Clear (09/15/18 5:04 UA Turbidity) PM) [facility] [id number] 22:04:00 Test Item Value Reference Range Interpretation Comments UA Color (test code = Yellow *NA*(09/15/18 UA Color) 5:04 PM) [facility] LmjjyzvJQZNSCSMED4252-79-34 18:00:00 Test Item Value Reference Range Interpretation Comments Striated Muscle IgG (test code = 1:320 Striated Muscle IgG) [facility] PpqbfttJPZNNUXWDY8439-01-59 17:20:00 Test Item Value Reference Range Interpretation Comments MuSK Auto Ab (test code = MuSK Auto Ab) no gt [facility]BACT[facility] - [id number] 16:23:00 Test Item Value Reference Range Interpretation Comments MRSA by PCR (test Negative (09/14/18 11:23 code = MRSA by PCR) AM) [facility] HospitalWpudmmiMBMJIGRZKR0930-39-26 14:09:00 Test Item Value Reference Range Interpretation Comments ACHr Binding Ab (test 1.25 See_Comment [Auto mated message] The code = ACHr Binding system w hich generated Ab) this result tra nsmitted reference range : <=0.24. The reference r evelyn was not used to int erpret this result as alexia l/abnormal. [facility] HospitalVpnhkxtESXZJPVDFA9044-54-11 14:09:00 Test Item Value Reference Range Interpretation Comments ACHr Block Ab (test 42 See_Comment [Automa porsche message] The code = ACHr Block Ab) system which generated this result transmit porsche reference range : <=25. The reference range was not used to interpr et this result as alexia l/abnormal. [id number] 08:47:00 Test Item Value Reference Range Interpretation Comments Eosinophils # (test code 0.1 See_Comment [A utomated message] The = Eosinophils #) system whic h generated this result tra nsmitted reference range : <=0.5. The reference r evelyn was not used to int erpret this result as normal/abnormal . [id number] 08:47:00 Test Item Value Reference Range Interpretation Comments Basophils # (test code 0.1 See_Comment [Aut omated message] The = Basophils #) system which generated this result tra nsmitted reference range : <=0.2. The reference r evelyn was not used to int erpret this result as normal/abnormal . [facility]QmqyowrLEFECTBIVM7109-20-19 08:47:00 Test Item Value Reference Range Interpretation Comments Eosinophils (test code = 1.1 See_Comment [A utomated message] The Eosinophils) system which ge nerated this result tra nsmitted reference range : <=4.0. The reference r evelyn was not used to int erpret this result as normal/abnormal . [facility]manFznmdgaMRYBYAINES0112-84-66 05:36:00 Test Item Value Reference Range Interpretation Comments Basophils # (test code 0.1 See_Comment [Aut omated message] The = Basophils #) system which generated this result tra nsmitted reference range : <=0.2. The reference r evelyn was not used to int erpret this result as normal/abnormal . [facility]manKfaavwhPVTEZCJMZZ6524-49-12 05:36:00 Test Item Value Reference Range Interpretation Comments Eosinophils # (test code 0.1 See_Comment [A utomated message] The = Eosinophils #) system whic h generated this result tra nsmitted reference range : <=0.5. The reference r evelyn was not used to int erpret this result as normal/abnormal . [id number] 05:36:00 Test Item Value Reference Range Interpretation Comments Eosinophils (test code = 0.9 See_Comment [A utomated message] The Eosinophils) system which ge nerated this result tra nsmitted reference range : <=4.0. The reference r evelyn was not used to int erpret this result as normal/abnormal . [facility]manMqoplpiHSKCUYKVUA4020-82-11 16:27:00 Test Item Value Reference Range Interpretation Comments PB Smear Path (test Peripheral blood smear code = PB Smear examination; - Platelets Path) are decreased with few giant forms. No platelet clump. - RBCs are normocytic ; no schistocyte - Leukocytes show unremarkable morphology; few reactive lymphocytes. Clinical correlation is suggested. CPT [address] [facility] AND [id number] 16:27:00 Test Item Value Reference Range Interpretation Comments UA Bacteria (test code = UA Occasional /HPF Bacteria) [facility] AND [id number] 16:27:00 Test Item Value Reference Range Interpretation Comments UA Urobilinogen (test code = UA no gt 0.1-1.0 Urobilinogen) [facility] AND [id number] 16:27:00 Test Item Value Reference Range Interpretation Comments UA Ketones (test code = Trace *ABN*(09/12/18 UA Ketones) 11:27 AM) [facility] AND [id number] 16:27:00 Test Item Value Reference Range Interpretation Comments UA Blood (test code = Small *ABN*(09/12/18 UA Blood) 11:27 AM) [facility] AND [id number] 16:27:00 Test Item Value Reference Range Interpretation Comments UA Bili (test code = Negative *NA*(09/12/18 UA Bili) 11:27 AM) [facility] AND [id number] 16:27:00 Test Item Value Reference Range Interpretation Comments UA Glucose (test code = UA Glucose) 150mg/dl [facility] AND [id number] 16:27:00 Test Item Value Reference Range Interpretation Comments UA Protein (test code = UA Protein) 100 mg/dL [facility] AND [id number] 16:27:00 Test Item Value Reference Range Interpretation Comments UA Turbidity (test code Slight *ABN*(09/12/18 = UA Turbidity) 11:27 AM) [facility] AND [id number] 16:27:00 Test Item Value Reference Range Interpretation Comments UA pH (test code = UA pH) 5.0 1 5.0-8.[address] [facility] AND [id number] 16:27:00 Test Item Value Reference Range Interpretation Comments UA Spec Grav (test code = UA Spec 1.018 1 Grav) [facility] AND [id number] 16:27:00 Test Item Value Reference Range Interpretation Comments UA Color (test code = Yellow *NA*(09/12/18 UA Color) 11:27 AM) [facility] AND [id number] 16:27:00 Test Item Value Reference Range Interpretation Comments UA Mucus (test code = UA Mucus) Few /LPF [facility] AND [id number] 16:27:00 Test Item Value Reference Range Interpretation Comments UA Hyal Cast (test 4 See_Comment [Automat ed message] The code = UA Hyal Cast) system which generated this result transmit porsche reference range : <=2. The reference range was not used to interpr et this result as alexia l/abnormal. [facility] AND [id number] 16:27:00 Test Item Value Reference Range Interpretation Comments UA WBC (test code = 4 See_Comment [Automa porsche message] The UA WBC) system which ge nerated this result transmit porsche reference range : <=5. The reference range was not used to interpr et this result as alexia l/abnormal. [facility] AND [id number] 16:27:00 Test Item Value Reference Range Interpretation Comments UA Nitrite (test code Negative (09/12/18 11:27 = UA Nitrite) AM) [facility] AND [id number] 16:27:00 Test Item Value Reference Range Interpretation Comments UA RBC (test code = 1 See_Comment [Automa porsche message] The UA RBC) system which ge nerated this result transmit porsche reference range : <=2. The reference range was not used to interpr et this result as alexia l/abnormal. [facility] AND [id number] 16:27:00 Test Item Value Reference Range Interpretation Comments UA Sq Epi (test code = UA Sq Moderate /LPF Epi) [facility] AND [id number] 16:27:00 Test Item Value Reference Range Interpretation Comments UA Leuk Est (test Negative (09/12/18 11:27 code = UA Leuk Est) AM) [facility]2019-04-14 09:34:00 Test Item Value Reference Range Interpretation Comments Bili Total (test code = Bili Total) 0.7 0.2-1.3 [facility]2019-04-14 09:34:00 Test Item Value Reference Range Interpretation Comments Alk Phos (test code = Alk Phos) 141 39-136 [facility]2019-04-14 09:34:00 Test Item Value Reference Range Interpretation Comments Total Protein (test code = Total 8.3 6.4-8.4 Protein) [facility]2019-04-14 09:34:00 Test Item Value Reference Range Interpretation Comments AST (test code = AST) 25 See_Comment [Auto mated message] The system which ge nerated this result transmit porsche reference range : <=37. The reference range was not used to interpr et this result as alexia l/abnormal. [facility]2019-04-14 09:34:00 Test Item Value Reference Range Interpretation Comments ALT (test code = ALT) 34 See_Comment [Auto mated message] The system which ge nerated this result transmit porsche reference range : <=65. The reference range was not used to interpr et this result as alexia l/abnormal. [facility]2019-04-14 09:34:00 Test Item Value Reference Range Interpretation Comments Albumin Lvl (test code = Albumin Lvl) 2.7 3.5-5.0 [facility]2019-04-14 09:34:00 Test Item Value Reference Range Interpretation Comments Globulin (test code = Globulin) 5.6 2.7-4.2 [facility]2019-04-14 09:34:00 Test Item Value Reference Range Interpretation Comments B/C Ratio (test code = B/C Ratio) 9 1 6-25 [facility]2019-04-14 09:34:00 Test Item Value Reference Range Interpretation Comments A/G Ratio (test code = A/G Ratio) 0.5 1 0.7-1.6 [id number] 09:34:00 Test Item Value Reference Range Interpretation Comments PTT (test code = PTT) 31.6 s 22.9-35.8 [id number] 09:34:00 Test Item Value Reference Range Interpretation Comments PT (test code = PT) 14.2 s 12.0-14.7 [id number] 09:34:00 Test Item Value Reference Range Interpretation Comments INR (test code = INR) 1.12 1 0.85-1.17 [facility]m[id number] 09:34:00 Test Item Value Reference Range Interpretation Comments Eosinophils (test code = 2.4 See_Comment [A utomated message] The Eosinophils) system which ge nerated this result tra nsmitted reference range : <=4.0. The reference r evelyn was not used to int erpret this result as normal/abnormal . [facility]manSjbirhnAHSGACOHFF2806-83-23 09:34:00 Test Item Value Reference Range Interpretation Comments Eosinophils # (test code 0.2 See_Comment [A utomated message] The = Eosinophils #) system whic h generated this result tra nsmitted reference range : <=0.5. The reference r evelyn was not used to int erpret this result as normal/abnormal . [facility]manCenwgspYVZPEGRADR9699-46-90 09:34:00 Test Item Value Reference Range Interpretation Comments Basophils # (test code 0.2 See_Comment [Aut omated message] The = Basophils #) system which generated this result tra nsmitted reference range : <=0.2. The reference r evelyn was not used to int erpret this result as normal/abnormal . [facility]NwyawilYFQMTKEYJC3085-04-55 09:34:00 Test Item Value Reference Range Interpretation Comments JAK2 (V617F) Director Review (test Comment code = JAK2 (V617F) Director Review) [facility]YgnglyvUXCVNMDJQG5753-89-98 09:34:00 Test Item Value Reference Range Interpretation Comments JAK2 (V617F) References (test code = Comment JAK2 (V617F) References) [facility] CenterSbymharFTTWDJVNKM3982-84-87 09:34:00 Test Item Value Reference Range Interpretation Comments JAK2 (V617F) Mutation Qnt Result Comment (test code = JAK2 (V617F) Mutation Qnt Result) [facility] CenterWksgvjoWBXKGOFPJG4842-93-76 09:34:00 Test Item Value Reference Range Interpretation Comments JAK2 (V617F) Methodology (test code = Comment JAK2 (V617F) Methodology) [facility] CenterAdydzgcYMPHQZWTUI7782-62-98 09:34:00 Test Item Value Reference Range Interpretation Comments JAK2 (V617F) Background (test code = Comment JAK2 (V617F) Background) [facility]2019-04-13 07:19:00 Test Item Value Reference Range Interpretation Comments Bili Direct (test code no gt See_Comment [Aut omated message] The = Bili Direct) system which generated this result tra nsmitted reference range : <=0.3. The reference r evelyn was not used to int erpret this result as alexia l/abnormal. [facility]2019-04-13 07:19:00 Test Item Value Reference Range Interpretation Comments Bili Indirect Unable to See_Comment [Automated (test code = Bili Calculate message] T he system Indirect) which generated this result transmitted reference range : <=1.0. The reference range was not used to interpret this result as normal/abnormal . [facility]2019-04-13 07:19:00 Test Item Value Reference Range Interpretation Comments A/G Ratio (test code = A/G Ratio) 0.5 1 0.7-1.6 [facility]2019-04-13 07:19:00 Test Item Value Reference Range Interpretation Comments ALT (test code = ALT) 40 See_Comment [Auto mated message] The system which ge nerated this result transmit porsche reference range : <=65. The reference range was not used to interpr et this result as alexia l/abnormal. [facility]2019-04-13 07:19:00 Test Item Value Reference Range Interpretation Comments AST (test code = AST) 31 See_Comment [Auto mated message] The system which ge nerated this result transmit porsche reference range : <=37. The reference range was not used to interpr et this result as alexia l/abnormal. [facility] [id number] 07:19:00 Test Item Value Reference Range Interpretation Comments Alk Phos (test code = Alk Phos) 144 39-136 [facility] [id number] 07:19:00 Test Item Value Reference Range Interpretation Comments Bili Total (test code = Bili Total) 0.8 0.2-1.3 [facility] [id number] 07:19:00 Test Item Value Reference Range Interpretation Comments Total Protein (test code = Total 7.3 6.4-8.4 Protein) [facility] [id number] 07:19:00 Test Item Value Reference Range Interpretation Comments Albumin Lvl (test code = Albumin Lvl) 2.5 3.5-5.0 [facility] [id number] 07:19:00 Test Item Value Reference Range Interpretation Comments Globulin (test code = Globulin) 4.8 2.7-4.2 [facility]aleCelt[facility] Therapeutics HoldingsCulture: [id number] 23:26:00 Test Item Value Reference Range Interpretation Comments Culture: Urine (test 10,000 - 50,000 code = Culture: Urine) CFU/mL [facility] [id number] 22:06:00 Test Item Value Reference Range Interpretation Comments Antibody Scrn (test Negative (09/10/18 5:06 code = Antibody Scrn) PM) [facility] [employer] [id number] 22:06:00 Test Item Value Reference Range Interpretation Comments ABO/Rh (test code = ABO/Rh) O POS [facility] [id number] 22:06:00 Test Item Value Reference Range Interpretation Comments Alk Phos (test code = Alk Phos) 166 39-136 [facility] [id number] 22:06:00 Test Item Value Reference Range Interpretation Comments Bili Total (test code = Bili Total) 0.8 0.2-1.3 [facility] [id number] 22:06:00 Test Item Value Reference Range Interpretation Comments ALT (test code = ALT) 45 See_Comment [Auto mated message] The system which ge nerated this result transmit porsche reference range : <=65. The reference range was not used to interpr et this result as alexia l/abnormal. [facility]2019-04-12 22:06:00 Test Item Value Reference Range Interpretation Comments AST (test code = AST) 35 See_Comment [Auto mated message] The system which ge nerated this result transmit porsche reference range : <=37. The reference range was not used to interpr et this result as alexia l/abnormal. [facility]2019-04-12 22:06:00 Test Item Value Reference Range Interpretation Comments Total Protein (test code = Total 7.1 6.4-8.4 Protein) [facility]2019-04-12 22:06:00 Test Item Value Reference Range Interpretation Comments Albumin Lvl (test code = Albumin Lvl) 2.9 3.5-5.0 [facility]2019-04-12 22:06:00 Test Item Value Reference Range Interpretation Comments B/C Ratio (test code = B/C Ratio) 11 1 6-25 [facility]2019-04-12 22:06:00 Test Item Value Reference Range Interpretation Comments A/G Ratio (test code = A/G Ratio) 0.7 1 0.7-1.6 [place] [id number] 22:06:00 Test Item Value Reference Range Interpretation Comments Globulin (test code = Globulin) 4.2 2.7-4.2 [id number] 22:06:00 Test Item Value Reference Range Interpretation Comments Heparin Ab(SRIDEVI) Negative 1(09/10/18 5:06 (test code = Heparin PM) Ab(SRIDEVI)) [id number] 22:06:00 Test Item Value Reference Range Interpretation Comments Pat Od Value (test code = Pat Od 0.127 1 Value) [facility]manIbacktrNYFDRRQHLB8641-87-45 22:06:00 Test Item Value Reference Range Interpretation Comments Pos CO Value (test code = Pos CO 0.400 1 Value) [facility]manMfjarixIBKRHIYFGR6777-30-23 22:06:00 Test Item Value Reference Range Interpretation Comments INR (test code = INR) 1.08 1 0.85-1.17 [facility]manHqtlpyoXGXGAWZJNI3878-44-17 22:06:00 Test Item Value Reference Range Interpretation Comments Thrombin Time (test code = Thrombin 19.1 s 15.0-21.2 Time) [id number] 22:06:00 Test Item Value Reference Range Interpretation Comments D-Dimer (test code = D-Dimer) 1.22 [facility]manCqbuldiVIAJLOTRDW1093-38-02 22:06:00 Test Item Value Reference Range Interpretation Comments Fibrinogen Lvl (test code = Fibrinogen 548 230-510 Lvl) [facility]manGgpjtyrRNFOWQTLOI9294-16-34 22:06:00 Test Item Value Reference Range Interpretation Comments PTT (test code = PTT) 30.3 s 22.9-35.8 [facility]m[id number] 22:06:00 Test Item Value Reference Range Interpretation Comments PT (test code = PT) 13.8 s 12.0-14.7 [facility] HospitalYrftzlrLMARJKKYMN7291-28-46 22:06:00 Test Item Value Reference Range Interpretation Comments IgA Lvl (test code = IgA Lvl) 615.0 68.0-378.[address] [facility] AND [id number] 22:06:00 Test Item Value Reference Range Interpretation Comments UA Glucose (test code = UA Glucose) 50mg/dl [facility] AND [id number] 22:06:00 Test Item Value Reference Range Interpretation Comments UA Turbidity (test code Marked *ABN*(09/10/18 = UA Turbidity) 5:06 PM) [facility] AND [id number] 22:06:00 Test Item Value Reference Range Interpretation Comments UA Color (test code = Yellow *NA*(09/10/18 UA Color) 5:06 PM) [facility] AND [id number] 22:06:00 Test Item Value Reference Range Interpretation Comments UA Protein (test code = UA Protein) 30 mg/dL [facility] AND [id number] 22:06:00 Test Item Value Reference Range Interpretation Comments UA pH (test code = UA pH) 6.0 1 5.0-8.[address] [facility] AND [id number] 22:06:00 Test Item Value Reference Range Interpretation Comments UA Ketones (test code = Trace *ABN*(09/10/18 UA Ketones) 5:06 PM) [facility] AND [id number] 22:06:00 Test Item Value Reference Range Interpretation Comments UA Bili (test code = Negative *NA*(09/10/18 UA Bili) 5:06 PM) [facility] AND [id number] 22:06:00 Test Item Value Reference Range Interpretation Comments UA Leuk Est (test code Trace *ABN*(09/10/18 = UA Leuk Est) 5:06 PM) [facility] AND [id number] 22:06:00 Test Item Value Reference Range Interpretation Comments UA Urobilinogen (test code = UA no gt 0.1-1.0 Urobilinogen) [facility] AND [id number] 22:06:00 Test Item Value Reference Range Interpretation Comments UA Blood (test code = Small *ABN*(09/10/18 UA Blood) 5:06 PM) [facility] AND [id number] 22:06:00 Test Item Value Reference Range Interpretation Comments UA Nitrite (test code Negative (09/10/18 5:06 = UA Nitrite) PM) [facility] AND [id number] 22:06:00 Test Item Value Reference Range Interpretation Comments UA Spec Grav (test code = UA Spec 1.012 1 Grav) [facility] AND [id number] 22:06:00 Test Item Value Reference Range Interpretation Comments UA WBC (test code = 19 See_Comment [Automa porsche message] The UA WBC) system which ge nerated this result transmit porsche reference range : <=5. The reference range was not used to interpr et this result as alexia l/abnormal. [facility]ann[facility] AND [id number] 22:06:00 Test Item Value Reference Range Interpretation Comments UA Sq Epi (test code = UA Sq Epi) Few /LPF [facility] AND [id number] 22:06:00 Test Item Value Reference Range Interpretation Comments UA RBC (test code = 1 See_Comment [Automa porsche message] The UA RBC) system which ge nerated this result transmit porsche reference range : <=2. The reference range was not used to interpr et this result as alexia l/abnormal. [facility] AND [id number] 22:06:00 Test Item Value Reference Range Interpretation Comments UA Mucus (test code = UA Mucus) Few /LPF [facility]yENLHTBIMWE7369-26-11 14:47:00 Test Item Value Reference Range Interpretation Comments Bands (test code = 0.0 See_Comment [Automat ed message] The Bands) system which ge nerated this result transmit porsche reference range : <=11.0. The reference r evelyn was not used to interpr et this result as alexia l/abnormal. [facility] HospitalPxzclfzTLOFBNULKH9182-11-39 14:47:00 Test Item Value Reference Range Interpretation Comments Large Plt (test code = Large Plt) Slight [facility]BxoxeucHKWVYJMCWK5317-57-10 14:47:00 Test Item Value Reference Range Interpretation Comments Atypical Lymphs (test code = Atypical 0.0 Lymphs) [facility] HospitalHqmgujxQPJGAIFVKI8565-56-92 14:47:00 Test Item Value Reference Range Interpretation Comments Striated Muscle IgG (test code = 1:320 Striated Muscle IgG) [facility] HospitalGcfrfbwRQQLBENOOS4947-76-08 14:47:00 Test Item Value Reference Range Interpretation Comments IgA Lvl (test code = IgA Lvl) 592.0 68.0-378.0 [facility]manUpglnqhWHLYBQDAVN0072-13-85 16:20:00 Test Item Value Reference Range Interpretation Comments Sed Rate (test code = 20 See_Comment [Auto mated message] The Sed Rate) system which ge nerated this result transmit porsche reference range : <=20. The reference range was not used to interpr et this result as alexia l/abnormal. [facility] HospitalLtupopfQICJJOYGIQ2805-56-82 16:20:00 Test Item Value Reference Range Interpretation Comments C-REACTIVE PROTEIN (test code = 5.2 C-REACTIVE PROTEIN) [id number] 16:51:00 Test Item Value Reference Range Interpretation Comments PTT (test code = PTT) 32.0 s 22.9-35.8 [facility] HospitalOvsbcbwJSPLNHIBCK1063-73-28 16:51:00 Test Item Value Reference Range Interpretation Comments PT (test code = PT) 13.5 s 12.0-14.7 [facility] HospitalZulwwomYSCYFJVIVC5648-17-50 16:51:00 Test Item Value Reference Range Interpretation Comments INR (test code = INR) 1.05 1 0.85-1.17 [facility][id number] 16:46:00 Test Item Value Reference Range Interpretation Comments AGAP (test code = AGAP) 15.8 10.0-20.0 [facility] MichiganUivsyzbAHBQYCPYCMOJ1770-66-11 16:46:00 Test Item Value Reference Range Interpretation Comments B/C Ratio (test code = B/C Ratio) 16 1 6-25 [facility] MichiganRvfmgjzYXXOMUBSWTRJ2477-37-02 16:46:00 Test Item Value Reference Range Interpretation Comments Globulin (test code = Globulin) 4.2 2.7-4.2 [facility] MichiganGnnvjpeMTLHZJQIDLEB6067-97-91 16:46:00 Test Item Value Reference Range Interpretation Comments A/G Ratio (test code = A/G Ratio) 0.7 1 0.7-1.6 [facility] MichiganLzanzheAKUJHKHFQKFV6154-54-81 16:46:00 Test Item Value Reference Range Interpretation Comments Sodium Lvl (test code = Sodium Lvl) 147 135-145 [facility] Michigan[id number] 16:46:00 Test Item Value Reference Range Interpretation Comments Potassium Lvl (test code = Potassium 3.8 3.5-5.1 Lvl) [facility] MichiganJikhsnoDEOLQPBBYFRP1303-81-52 16:46:00 Test Item Value Reference Range Interpretation Comments Chloride Lvl (test code = Chloride Lvl) 107 95-109 [facility] MichiganIutbjkuRVYNZFLOHPLF6677-12-51 16:46:00 Test Item Value Reference Range Interpretation Comments BUN (test code = BUN) 21 7-22 [facility] MichiganCfuwoyuAWBBKSVNUCLW9970-16-15 16:46:00 Test Item Value Reference Range Interpretation Comments Glucose Lvl (test code = Glucose Lvl) 144 70-99 [facility] MichiganVixeincYSHFBRBEXECS9479-44-35 16:46:00 Test Item Value Reference Range Interpretation Comments Albumin Lvl (test code = Albumin Lvl) 2.9 3.5-5.0 [facility] MichiganAcxfjuyVYJSNJFSIVKO9711-09-35 16:46:00 Test Item Value Reference Range Interpretation Comments CO2 (test code = CO2) 28 24-32 [facility] MichiganDcuftlbUBNCTXGMQOUR9759-21-40 16:46:00 Test Item Value Reference Range Interpretation Comments eGFR (test code = eGFR) 40 [facility] MichiganJpxdyiyIZSCYDPYIAUK6230-17-05 16:46:00 Test Item Value Reference Range Interpretation Comments AST (test code = AST) 137 See_Comment [Auto mated message] The system which ge nerated this result transmit porsche reference range : <=37. The reference range was not used to interpr et this result as alexia l/abnormal. [facility] MichiganMwbqmgfQJQRNONRJBXM7478-06-60 16:46:00 Test Item Value Reference Range Interpretation Comments ALT (test code = ALT) 67 See_Comment [Auto mated message] The system which ge nerated this result transmit porsche reference range : <=65. The reference range was not used to interpr et this result as alexia l/abnormal. [facility] MichiganHakltizYQCQRUXTGDPL0570-87-61 16:46:00 Test Item Value Reference Range Interpretation Comments Creatinine Lvl (test code = Creatinine 1.33 0.50-1.40 Lvl) [facility] MichiganDxrnjieGWCHKPNKEUBG6878-71-62 16:46:00 Test Item Value Reference Range Interpretation Comments Bili Total (test code = Bili Total) 1.3 0.2-1.3 [facility] MichiganNvwysapCPSCGGVRDMTL5758-12-20 16:46:00 Test Item Value Reference Range Interpretation Comments Total Protein (test code = Total 7.1 6.4-8.4 Protein) [facility] MichiganIojaxrtUDHXSJMGMROH2643-98-40 16:46:00 Test Item Value Reference Range Interpretation Comments Alk Phos (test code = Alk Phos) 195 39-136 [facility] MichiganZetupghCIUUZUFSCDSQ0278-73-41 16:46:00 Test Item Value Reference Range Interpretation Comments Calcium Lvl (test code = Calcium Lvl) 9.3 8.5-10.5 [facility]manZbfaloyFLJYAIKLIX5982-84-29 16:46:00 Test Item Value Reference Range Interpretation Comments Basophils # (test code 0.1 See_Comment [Aut omated message] The = Basophils #) system which generated this result tra nsmitted reference range : <=0.2. The reference r evelyn was not used to int erpret this result as normal/abnormal . [facility]manPfsjjtdDRLYFKUXLV5421-41-34 16:46:00 Test Item Value Reference Range Interpretation Comments Neutrophils # (test code = Neutrophils 2.5 1.5-8.1 #) [facility]manTytftzzGPSHVVWGBX1669-60-39 16:46:00 Test Item Value Reference Range Interpretation Comments Eosinophils # (test code 0.2 See_Comment [A utomated message] The = Eosinophils #) system whic h generated this result tra nsmitted reference range : <=0.5. The reference r evelyn was not used to int erpret this result as normal/abnormal . [facility]manBpsxwooSUKAEBKHNK0786-33-07 16:46:00 Test Item Value Reference Range Interpretation Comments Monocytes # (test code 0.7 See_Comment [Aut omated message] The = Monocytes #) system which generated this result tra nsmitted reference range : <=0.8. The reference r evelyn was not used to int erpret this result as normal/abnormal . [facility]manQnmulpcWJBNFJVOHY3741-73-67 16:46:00 Test Item Value Reference Range Interpretation Comments Lymphocytes # (test code = Lymphocytes 3.3 1.0-5.5 #) [facility]manCwhxxefUYHINUMLGG0693-88-52 16:46:00 Test Item Value Reference Range Interpretation Comments Monocytes (test code = Monocytes) 9.8 2.0-12.0 [facility]manQjwmbskTPGHTOSFPU9403-55-04 16:46:00 Test Item Value Reference Range Interpretation Comments Eosinophils (test code = 2.5 See_Comment [A utomated message] The Eosinophils) system which ge nerated this result tra nsmitted reference range : <=4.0. The reference r evelyn was not used to int erpret this result as normal/abnormal . [facility]manBtepijePJOAPBPFXD8648-95-62 16:46:00 Test Item Value Reference Range Interpretation Comments Basophils (test code = 2.0 See_Comment [Aut omated message] The Basophils) system which ge nerated this result tra nsmitted reference range : <=1.0. The reference r evelyn was not used to int erpret this result as normal/abnormal . [facility]manAwfmddgBEZJDETQBW8279-25-92 16:46:00 Test Item Value Reference Range Interpretation Comments Lymphocytes (test code = Lymphocytes) 48.8 20.0-40.0 [facility]manPsasrjoEHGNEWVLON1009-21-60 16:46:00 Test Item Value Reference Range Interpretation Comments Segs (test code = Segs) 36.9 45.0-75.0 [facility]manBqbzikwQVPANRCOPX7600-90-43 16:46:00 Test Item Value Reference Range Interpretation Comments MPV (test code = MPV) 11.3 7.4-10.4 [facility]manBumpjzrAQQGTFUVNL7034-19-81 16:46:00 Test Item Value Reference Range Interpretation Comments MCH (test code = MCH) 30.3 pg 27.0-31.0 [facility]manQfkganaJXSVZMBGTH3402-74-54 16:46:00 Test Item Value Reference Range Interpretation Comments Platelet (test code = Platelet) 125 133-450 [facility]manMfgzzkzKQBINLBTRP4949-95-61 16:46:00 Test Item Value Reference Range Interpretation Comments RDW (test code = RDW) 13.9 11.5-14.5 [facility]manBcelwhbCHGGMDWQEF2667-55-60 16:46:00 Test Item Value Reference Range Interpretation Comments MCV (test code = MCV) 92.9 80.0-98.0 [facility]manXsrzdwoZJEQQRSFSP2062-77-81 16:46:00 Test Item Value Reference Range Interpretation Comments MCHC (test code = MCHC) 32.6 32.0-36.0 [facility]manHuudplfFEADFINZKB7272-75-71 16:46:00 Test Item Value Reference Range Interpretation Comments WBC (test code = WBC) 6.8 3.7-10.4 [facility] [facility]aufmanYlghvfdFZVWERVQTH1519-61-35 16:46:00 Test Item Value Reference Range Interpretation Comments RBC (test code = RBC) 5.13 4.20-5.40 [facility]CfopxmtKOJFXXVFLS3315-20-59 16:46:00 Test Item Value Reference Range Interpretation Comments Hgb (test code = Hgb) 15.5 12.0-16.0 [facility]manEdzwknvJOHQLAHMQB0535-46-27 16:46:00 Test Item Value Reference Range Interpretation Comments Hct (test code = Hct) 47.7 36.0-48.0 [facility]GgkvkitYSBJSH2106-98-68 16:46:00 Test Item Value Reference Range Interpretation Comments VLDL (test code = VLDL) 24 1 [facility]bergDfbapvtGUPWXM2350-73-26 16:46:00 Test Item Value Reference Range Interpretation Comments LDL (Calculated) (test code = LDL 45 (Calculated)) [facility]bergAqfxcumQSILWO7143-69-55 16:46:00 Test Item Value Reference Range Interpretation Comments CHD Risk (test code = CHD Risk) 2.82 1 3.90-5.80 [facility] HospitalElqvktgVVDDOV9713-41-05 16:46:00 Test Item Value Reference Range Interpretation Comments HDL (test code = HDL) 38 [facility] HospitalWtrvtisKHUNHD3605-43-82 16:46:00 Test Item Value Reference Range Interpretation Comments Trig (test code = Trig) 118 [facility] HospitalWakpdfhNXWZHP9153-34-33 16:46:00 Test Item Value Reference Range Interpretation Comments Chol (test code = Chol) 107 [facility] VDZXFYMXI2264-64-29 16:46:00 Test Item Value Reference Range Interpretation Comments Hgb A1C (test code = Hgb A1C) 12.2 [facility]puyzwxTUSTEONITZ9438-66-78 22:52:00 Test Item Value Reference Range Interpretation Comments MPV (test code = MPV) 9.7 7.4-10.4 [facility]MoidncgWADDLWYMXJ3300-75-34 22:52:00 Test Item Value Reference Range Interpretation Comments Platelet (test code = Platelet) 163 133-450 [facility]manZipjvfbFHUNVJKXLU5876-52-57 22:52:00 Test Item Value Reference Range Interpretation Comments RDW (test code = RDW) 13.7 11.5-14.5 [facility] HospitalUglgzjwLENYFVQVRZ4634-83-14 22:52:00 Test Item Value Reference Range Interpretation Comments Hgb (test code = Hgb) 17.8 12.0-16.0 [facility] HospitalOtxhormZTJAMUGBDM0080-73-57 22:52:00 Test Item Value Reference Range Interpretation Comments Hct (test code = Hct) 52.9 36.0-48.0 [facility]manZnnxhykBMPGDBBKWB4982-94-36 22:52:00 Test Item Value Reference Range Interpretation Comments MCV (test code = MCV) 92.3 80.0-98.0 [facility] HospitalZmahguyJUWUFXDUWQ6538-95-23 22:52:00 Test Item Value Reference Range Interpretation Comments RBC (test code = RBC) 5.73 4.20-5.40 [facility] HospitalNnyxnjlFFLUANASAM8575-84-69 22:52:00 Test Item Value Reference Range Interpretation Comments WBC (test code = WBC) 8.5 3.7-10.4 [facility]manYlpplsgGWIDISPULZ0737-00-38 22:52:00 Test Item Value Reference Range Interpretation Comments MCHC (test code = MCHC) 33.6 32.0-36.0 [facility]manYgmkwqjPRFSKQUYZC4255-29-46 22:52:00 Test Item Value Reference Range Interpretation Comments MCH (test code = MCH) 31.0 pg 27.0-31.0 [facility] HospitalCARDIAC EZVWGIO3823-16-69 09:40:00 Test Item Value Reference Range Interpretation Comments BNP (test code = BNP) 98 [facility] [id number] 09:40:00 Test Item Value Reference Range Interpretation Comments Phosphorus (test code = Phosphorus) 3.4 2.5-4.5 [facility]2019-03-21 09:40:00 Test Item Value Reference Range Interpretation Comments Magnesium Lvl (test code = Magnesium 1.9 1.8-2.4 Lvl) [facility]2019-03-21 09:40:00 Test Item Value Reference Range Interpretation Comments eGFR (test code = eGFR) 62 [facility]2019-03-21 09:40:00 Test Item Value Reference Range Interpretation Comments Calcium Lvl (test code = Calcium Lvl) 8.8 8.5-10.5 [facility]2019-03-21 09:40:00 Test Item Value Reference Range Interpretation Comments CO2 (test code = CO2) 23 24-32 [facility]2019-03-21 09:40:00 Test Item Value Reference Range Interpretation Comments Chloride Lvl (test code = Chloride Lvl) 106 95-109 [facility]2019-03-21 09:40:00 Test Item Value Reference Range Interpretation Comments Potassium Lvl (test code = Potassium 4.6 3.5-5.1 Lvl) [facility]2019-03-21 09:40:00 Test Item Value Reference Range Interpretation Comments Creatinine Lvl (test code = Creatinine 0.94 0.50-1.40 Lvl) [facility]2019-03-21 09:40:00 Test Item Value Reference Range Interpretation Comments Sodium Lvl (test code = Sodium Lvl) 138 135-145 [facility]2019-03-21 09:40:00 Test Item Value Reference Range Interpretation Comments BUN (test code = BUN) 13 7-22 [facility]2019-03-21 09:40:00 Test Item Value Reference Range Interpretation Comments Glucose Lvl (test code = Glucose Lvl) 160 70-99 [facility]2019-03-21 09:40:00 Test Item Value Reference Range Interpretation Comments AGAP (test code = AGAP) 13.6 10.0-20.0 [facility]manRcjhbaoHYWGFZYIHM8218-88-10 09:40:00 Test Item Value Reference Range Interpretation Comments Eosinophils # (test code 0.2 See_Comment [A utomated message] The = Eosinophils #) system whic h generated this result tra nsmitted reference range : <=0.5. The reference r evelyn was not used to int erpret this result as normal/abnormal . [facility]manUhvemucSOOESPPMLF5066-48-97 09:40:00 Test Item Value Reference Range Interpretation Comments Basophils # (test code 0.1 See_Comment [Aut omated message] The = Basophils #) system which generated this result tra nsmitted reference range : <=0.2. The reference r evelyn was not used to int erpret this result as normal/abnormal . [facility]manVcrrvcqGZCKBLEXQC2133-68-51 09:40:00 Test Item Value Reference Range Interpretation Comments Segs (test code = Segs) 47.9 45.0-75.0 [facility]manEecbswwXLOENXGTEO8756-96-42 09:40:00 Test Item Value Reference Range Interpretation Comments Lymphocytes (test code = Lymphocytes) 40.1 20.0-40.0 [facility]manNilktwjPVJWEDGKYY4256-74-70 09:40:00 Test Item Value Reference Range Interpretation Comments Lymphocytes # (test code = Lymphocytes 3.9 1.0-5.5 #) [facility]manPbdzyccYTYVDPJAJV7041-51-72 09:40:00 Test Item Value Reference Range Interpretation Comments Monocytes # (test code 0.9 See_Comment [Aut omated message] The = Monocytes #) system which generated this result tra nsmitted reference range : <=0.8. The reference r evelyn was not used to int erpret this result as normal/abnormal . [facility]manWxkuqrlFTIGFQDUMJ1521-42-71 09:40:00 Test Item Value Reference Range Interpretation Comments Monocytes (test code = Monocytes) 8.8 2.0-12.0 [facility]manThadckrBCWKRUUSNV1441-84-55 09:40:00 Test Item Value Reference Range Interpretation Comments Basophils (test code = 1.2 See_Comment [Aut omated message] The Basophils) system which ge nerated this result tra nsmitted reference range : <=1.0. The reference r evelyn was not used to int erpret this result as normal/abnormal . [facility]manYldiwqxZASEBBQHUB5363-89-56 09:40:00 Test Item Value Reference Range Interpretation Comments Eosinophils (test code = 2.0 See_Comment [A utomated message] The Eosinophils) system which ge nerated this result tra nsmitted reference range : <=4.0. The reference r evelyn was not used to int erpret this result as normal/abnormal . [facility]manRtmzerkXTMSWTKXDX2029-49-03 09:40:00 Test Item Value Reference Range Interpretation Comments Neutrophils # (test code = Neutrophils 4.7 1.5-8.1 #) [facility]manXawlwwkDRESBJTOBO4770-09-79 09:40:00 Test Item Value Reference Range Interpretation Comments INR (test code = INR) 1.09 1 0.85-1.17 [place] 231519-03-21 09:40:00 Test Item Value Reference Range Interpretation Comments PT (test code = PT) 13.9 s 12.0-14.7 [facility]manWxiwvqbKYCCMMCLVU5511-32-40 09:40:00 Test Item Value Reference Range Interpretation Comments PTT (test code = PTT) 31.0 s 22.9-35.8 [facility]manBvoqncnDNFKIBDCZF3427-94-09 09:40:00 Test Item Value Reference Range Interpretation Comments MCV (test code = MCV) 93.0 80.0-98.0 [facility]manThfizejUAVNNSTWUY5659-27-08 09:40:00 Test Item Value Reference Range Interpretation Comments MCH (test code = MCH) 31.1 pg 27.0-31.0 [facility]manOpdycdeQTUEMHMPTS3774-60-33 09:40:00 Test Item Value Reference Range Interpretation Comments RDW (test code = RDW) 13.7 11.5-14.5 [facility]manPrgolycSSSLTHOFNQ6357-20-94 09:40:00 Test Item Value Reference Range Interpretation Comments MCHC (test code = MCHC) 33.4 32.0-36.0 [facility]manUfgvyczOOJNMPTZXP6223-50-29 09:40:00 Test Item Value Reference Range Interpretation Comments Platelet (test code = Platelet) 77 133-450 [facility]manQrjagreYLAXXEAEAB7555-73-51 09:40:00 Test Item Value Reference Range Interpretation Comments MPV (test code = MPV) 9.9 7.4-10.4 [facility] HospitalCjpdlwsLAINIIBYON0695-96-00 09:40:00 Test Item Value Reference Range Interpretation Comments Hct (test code = Hct) 49.7 36.0-48.0 [facility]EovtwqbJSCJVIXHEI4988-85-31 09:40:00 Test Item Value Reference Range Interpretation Comments Hgb (test code = Hgb) 16.6 12.0-16.0 [facility]manEvqcmihJPLNVJGXHY0710-68-15 09:40:00 Test Item Value Reference Range Interpretation Comments RBC (test code = RBC) 5.35 4.20-5.40 [facility] HospitalSwdzwgcOPTFFRPTCX7668-37-95 09:40:00 Test Item Value Reference Range Interpretation Comments WBC (test code = WBC) 9.7 3.7-10.4 [facility] EBEPKEZ0225-10-04 09:40:00 Test Item Value Reference Range Interpretation Comments Ca Ion WB (test code = Ca Ion WB) 1.02 1.05-1.25 [facility]RO[facility] OSVWKHM4368-86-65 09:40:00 Test Item Value Reference Range Interpretation Comments Ca Norm WB (test code = Ca Norm WB) 0.98 1.05-1.25 [facility] AND RDJKQ7958-40-66 09:40:00 Test Item Value Reference Range Interpretation Comments Occult Bld Stl (test Negative (08/19/18 4:40 code = Occult Bld Stl) AM) [facility] HospitalCulture: [id number] 09:40:00 Test Item Value Reference Range Interpretation Comments Culture: Stool (test Normal Enteric Era code = Culture: Isolated No Salmonella Or Stool) Shigella Isolated [facility] [id number] 10:45:00 Test Item Value Reference Range Interpretation Comments Alk Phos (test code = Alk Phos) 132 39-136 [facility] SMSGF5146-08-01 10:45:00 Test Item Value Reference Range Interpretation Comments A/G Ratio (test code = A/G Ratio) 0.6 1 0.7-1.6 [facility] [id number] 10:45:00 Test Item Value Reference Range Interpretation Comments ALT (test code = ALT) 30 See_Comment [Auto mated message] The system which ge nerated this result transmit porsche reference range : <=65. The reference range was not used to interpr et this result as alexia l/abnormal. [facility]2019-03-20 10:45:00 Test Item Value Reference Range Interpretation Comments Total Protein (test code = Total 6.9 6.4-8.4 Protein) [facility]2019-03-20 10:45:00 Test Item Value Reference Range Interpretation Comments Albumin Lvl (test code = Albumin Lvl) 2.6 3.5-5.0 [facility]2019-03-20 10:45:00 Test Item Value Reference Range Interpretation Comments Globulin (test code = Globulin) 4.3 2.7-4.2 [facility]2019-03-20 10:45:00 Test Item Value Reference Range Interpretation Comments Bili Direct (test code no gt See_Comment [Aut omated message] The = Bili Direct) system which generated this result tra nsmitted reference range : <=0.3. The reference r evelyn was not used to int erpret this result as alexia l/abnormal. [facility]2019-03-20 10:45:00 Test Item Value Reference Range Interpretation Comments Bili Total (test code = Bili Total) 0.5 0.2-1.3 [facility]2019-03-20 10:45:00 Test Item Value Reference Range Interpretation Comments Bili Indirect (test no gt See_Comment [Automa porsche message] The code = Bili Indirect) system which generated this result tra nsmitted reference range : <=1.0. The reference r evelyn was not used to int erpret this result as normal/abnormal . [facility]2019-03-20 10:45:00 Test Item Value Reference Range Interpretation Comments AST (test code = AST) 21 See_Comment [Auto mated message] The system which ge nerated this result transmit porsche reference range : <=37. The reference range was not used to interpr et this result as alexia l/abnormal. [facility]2019-03-20 10:45:00 Test Item Value Reference Range Interpretation Comments Calcium Lvl (test code = Calcium Lvl) 8.5 8.5-10.5 [facility]2019-03-20 10:45:00 Test Item Value Reference Range Interpretation Comments eGFR (test code = eGFR) 71 [facility]2019-03-20 10:45:00 Test Item Value Reference Range Interpretation Comments BUN (test code = BUN) 13 7-22 [facility]2019-03-20 10:45:00 Test Item Value Reference Range Interpretation Comments Glucose Lvl (test code = Glucose Lvl) 162 70-99 [facility]2019-03-20 10:45:00 Test Item Value Reference Range Interpretation Comments CO2 (test code = CO2) 27 24-32 [facility]2019-03-20 10:45:00 Test Item Value Reference Range Interpretation Comments Potassium Lvl (test code = Potassium 3.6 3.5-5.1 Lvl) [facility]2019-03-20 10:45:00 Test Item Value Reference Range Interpretation Comments Sodium Lvl (test code = Sodium Lvl) 142 135-145 [facility]2019-03-20 10:45:00 Test Item Value Reference Range Interpretation Comments Chloride Lvl (test code = Chloride Lvl) 108 95-109 [facility]2019-03-20 10:45:00 Test Item Value Reference Range Interpretation Comments Creatinine Lvl (test code = Creatinine 0.83 0.50-1.40 Lvl) [facility]2019-03-20 10:45:00 Test Item Value Reference Range Interpretation Comments AGAP (test code = AGAP) 10.6 10.0-20.0 [facility]2019-03-20 10:45:00 Test Item Value Reference Range Interpretation Comments Magnesium Lvl (test code = Magnesium 1.8 1.8-2.4 Lvl) [facility]2019-03-20 10:45:00 Test Item Value Reference Range Interpretation Comments Phosphorus (test code = Phosphorus) 3.6 2.5-4.5 [facility]manThfiewxMDRKCLIGHV4053-51-98 10:45:00 Test Item Value Reference Range Interpretation Comments Neutrophils # (test code = Neutrophils 3.9 1.5-8.1 #) [facility]manVdlarsxBLSSGDXWPT3611-97-70 10:45:00 Test Item Value Reference Range Interpretation Comments Eosinophils (test code = 2.5 See_Comment [A utomated message] The Eosinophils) system which ge nerated this result tra nsmitted reference range : <=4.0. The reference r evelyn was not used to int erpret this result as normal/abnormal . [facility]manIwkavyuTKGXEDZTWL4223-78-56 10:45:00 Test Item Value Reference Range Interpretation Comments Basophils (test code = 1.9 See_Comment [Aut omated message] The Basophils) system which ge nerated this result tra nsmitted reference range : <=1.0. The reference r evelyn was not used to int erpret this result as normal/abnormal . [facility]manIlnrqwoKSCYAIUUMD1051-49-32 10:45:00 Test Item Value Reference Range Interpretation Comments Monocytes # (test code 0.6 See_Comment [Aut omated message] The = Monocytes #) system which generated this result tra nsmitted reference range : <=0.8. The reference r evelyn was not used to int erpret this result as normal/abnormal . [facility]manGskwunxUOIBJIHYKP5517-38-34 10:45:00 Test Item Value Reference Range Interpretation Comments Lymphocytes # (test code = Lymphocytes 3.8 1.0-5.5 #) [facility]manYvozeucBJVCOBXFCF8170-52-46 10:45:00 Test Item Value Reference Range Interpretation Comments Eosinophils # (test code 0.2 See_Comment [A utomated message] The = Eosinophils #) system whic h generated this result tra nsmitted reference range : <=0.5. The reference r evelyn was not used to int erpret this result as normal/abnormal . [facility]manLtobsdhVHXBOYFYTA9230-98-37 10:45:00 Test Item Value Reference Range Interpretation Comments Basophils # (test code 0.2 See_Comment [Aut omated message] The = Basophils #) system which generated this result tra nsmitted reference range : <=0.2. The reference r evelyn was not used to int erpret this result as normal/abnormal . [facility]manUftuaroEJECLOSYXB9738-33-75 10:45:00 Test Item Value Reference Range Interpretation Comments Lymphocytes (test code = Lymphocytes) 44.0 20.0-40.0 [facility]manQjoijiqOPTYIGEEEG4429-43-15 10:45:00 Test Item Value Reference Range Interpretation Comments Segs (test code = Segs) 45.3 45.0-75.0 [facility]manMvximyvMVWUPSBHHH9725-44-56 10:45:00 Test Item Value Reference Range Interpretation Comments Monocytes (test code = Monocytes) 6.3 2.0-12.0 [facility]manIovdgegGFTAMFKINP4183-95-56 10:45:00 Test Item Value Reference Range Interpretation Comments Hct (test code = Hct) 49.2 36.0-48.0 [facility]manUgxqztgZXFBXCMASE4077-45-07 10:45:00 Test Item Value Reference Range Interpretation Comments Hgb (test code = Hgb) 17.0 12.0-16.0 [facility]manJnaykybYOXIHDMLSY9609-17-34 10:45:00 Test Item Value Reference Range Interpretation Comments RBC (test code = RBC) 5.30 4.20-5.40 [facility]ThsttgxTKLGHDJEOL5284-28-97 10:45:00 Test Item Value Reference Range Interpretation Comments WBC (test code = WBC) 8.7 3.7-10.4 [facility]manXpskcytLWZGMZUFTS5046-17-33 10:45:00 Test Item Value Reference Range Interpretation Comments MCV (test code = MCV) 92.8 80.0-98.0 [facility]manPvejusrGAQAECXKMH4402-70-90 10:45:00 Test Item Value Reference Range Interpretation Comments MPV (test code = MPV) 9.7 7.4-10.4 [facility]manBrewkvkADTJBLUIOA6926-03-42 10:45:00 Test Item Value Reference Range Interpretation Comments RDW (test code = RDW) 13.6 11.5-14.5 [facility]manRvwnnyuEVUEOLHTZY9243-91-26 10:45:00 Test Item Value Reference Range Interpretation Comments Platelet (test code = Platelet) 161 133-450 [facility]manAjqelnoEXSNFFPPHY4835-88-13 10:45:00 Test Item Value Reference Range Interpretation Comments MCHC (test code = MCHC) 34.6 32.0-36.0 [facility]manGdddbbbDPWWQUYDIL9835-48-25 10:45:00 Test Item Value Reference Range Interpretation Comments MCH (test code = MCH) 32.1 pg 27.0-31.0 [facility]2019-03-20 10:45:00 Test Item Value Reference Range Interpretation Comments Ca Norm WB (test code = Ca Norm WB) 1.05 1.05-1.25 [facility]2019-03-20 10:45:00 Test Item Value Reference Range Interpretation Comments Ca Ion WB (test code = Ca Ion WB) 1.06 1.05-1.25 [facility]manRzgakmrLASDGFAWAG5023-62-38 04:46:11 Test Item Value Reference Range Interpretation Comments Monocytes # (test code 0.9 See_Comment [Aut omated message] The = Monocytes #) system which generated this result tra nsmitted reference range : <=0.8. The reference r evelyn was not used to int erpret this result as normal/abnormal . [facility]manFeqlqmtGTDCDRHFJW0401-19-81 04:46:11 Test Item Value Reference Range Interpretation Comments Eosinophils # (test code 0.2 See_Comment [A utomated message] The = Eosinophils #) system whic h generated this result tra nsmitted reference range : <=0.5. The reference r evelyn was not used to int erpret this result as normal/abnormal . [facility]manUrjbkwmFYFPYEOLXS6473-31-71 04:46:11 Test Item Value Reference Range Interpretation Comments Lymphocytes # (test code = Lymphocytes 5.1 1.0-5.5 #) [facility]manHxwmtlwBSMWYCTFYD0573-37-11 04:46:11 Test Item Value Reference Range Interpretation Comments Basophils # (test code 0.1 See_Comment [Aut omated message] The = Basophils #) system which generated this result tra nsmitted reference range : <=0.2. The reference r evelyn was not used to int erpret this result as normal/abnormal . [facility]manGriwapoTWEVCHNKPC8693-63-34 04:46:11 Test Item Value Reference Range Interpretation Comments Monocytes (test code = Monocytes) 7.6 2.0-12.0 [facility]manFlvrknsIYINEWJYMF5113-55-13 04:46:11 Test Item Value Reference Range Interpretation Comments Segs (test code = Segs) 44.9 45.0-75.0 [facility]manUlxaubgQBDNEGPZUD1627-29-62 04:46:11 Test Item Value Reference Range Interpretation Comments Lymphocytes (test code = Lymphocytes) 44.2 20.0-40.0 [facility]manQsirllkMULTAYTUYT5002-43-56 04:46:11 Test Item Value Reference Range Interpretation Comments Basophils (test code = 1.3 See_Comment [Aut omated message] The Basophils) system which ge nerated this result tra nsmitted reference range : <=1.0. The reference r evelyn was not used to int erpret this result as normal/abnormal . [facility]manAphchqvODVENMDISQ9094-63-91 04:46:11 Test Item Value Reference Range Interpretation Comments Eosinophils (test code = 2.0 See_Comment [A utomated message] The Eosinophils) system which ge nerated this result tra nsmitted reference range : <=4.0. The reference r evelyn was not used to int erpret this result as normal/abnormal . [facility]manZtulukzDRAEUYVVYA1760-70-78 04:46:11 Test Item Value Reference Range Interpretation Comments Neutrophils # (test code = Neutrophils 5.2 1.5-8.1 #) [facility]BibrtxoPKAXQPZQKVJH4221-82-69 20:35:00 Test Item Value Reference Range Interpretation Comments AGAP (test code = AGAP) 11.9 10.0-20.0 [facility] MichiganNttvhhiYVMXZFRGMOJH4947-75-47 20:35:00 Test Item Value Reference Range Interpretation Comments eGFR (test code = eGFR) 64 [facility] MichiganBffagunSMNNUWXJUNMD2592-67-39 20:35:00 Test Item Value Reference Range Interpretation Comments Sodium Lvl (test code = Sodium Lvl) 142 135-145 [facility] MichiganEzgxqkcJKABFAAMPXJZ6328-21-84 20:35:00 Test Item Value Reference Range Interpretation Comments Potassium Lvl (test code = Potassium 3.9 3.5-5.1 Lvl) [facility] MichiganRyfbgcgTOWLAGQCBFIR8112-28-07 20:35:00 Test Item Value Reference Range Interpretation Comments Chloride Lvl (test code = Chloride Lvl) 104 95-109 [facility] MichiganFzjpipxFHSOBULCYQBH5292-91-87 20:35:00 Test Item Value Reference Range Interpretation Comments CO2 (test code = CO2) 30 24-32 [facility] MichiganOdgjuraWZVZMFEPIHBK5167-08-16 20:35:00 Test Item Value Reference Range Interpretation Comments Calcium Lvl (test code = Calcium Lvl) 9.6 8.5-10.5 [facility] MichiganHrcnqqiQELCMMVPLEXQ3361-03-41 20:35:00 Test Item Value Reference Range Interpretation Comments BUN (test code = BUN) 16 7-22 [facility] MichiganUckqujeWHNRAKBYDNGV0415-67-93 20:35:00 Test Item Value Reference Range Interpretation Comments Glucose Lvl (test code = Glucose Lvl) 121 70-99 [facility] MichiganEttegyvAWVFGFRDPEDF2847-67-33 20:35:00 Test Item Value Reference Range Interpretation Comments Creatinine Lvl (test code = Creatinine 0.91 0.50-1.40 Lvl) [facility]manRlhitotRBMCNACFQI0097-93-78 20:35:00 Test Item Value Reference Range Interpretation Comments RBC Morph (test code = Normal (08/16/18 3:35 RBC Morph) PM) [facility]manLbhppyiARROHXSEBJ8314-85-97 20:35:00 Test Item Value Reference Range Interpretation Comments Plt Morph (test code = Normal (08/16/18 3:35 Plt Morph) PM) [facility]manNjdptzfQOQUZIDCXA8787-72-07 20:35:00 Test Item Value Reference Range Interpretation Comments PTT (test code = PTT) 32.0 s 22.9-35.8 [facility]manPyefpbbWDELDTENQS5237-33-34 20:35:00 Test Item Value Reference Range Interpretation Comments PT (test code = PT) 12.6 s 12.0-14.7 [facility]bfxbsrYGJDFRHBCJ6431-[facility]-81 20:35:00 Test Item Value Reference Range Interpretation Comments INR (test code = INR) 0.96 1 0.85-1.17 [facility] [id number] 15:21:00Surgical Pathology Report Case: [id number] Authorizing Provider: Yogesh Ndiaye MD Collected: 02/24/2017 1559 Ordering Location: [facility] Received: 02/25/2017 0810 Pathologist: Kenji Hercules MD Specimens: A) - Large Intestine, Colon - Right/Ascending, BX-R/O MICROSCOPIC COLITIS B) - Large Intestine, Colon - Left/Descending, BX-R/O MICROSCOPIC COLITIS C) -Polyp, Colon - Sigmoid, POLYP-TAKEN W/FRCP A. RIGHT/ASCENDING COLON BIOPSY - COLONIC MUCOSA, WITHIN NORMAL LIMITS- NO EVIDENCE OF LYMPHOCYTIC/MICROSCOPIC COLITISB. LEFT/DESCENDING COLON BIOPSY- COLONIC MUCOSA, WITHIN NORMAL LIMITS- NO EVIDENCE OF LYMPHOCYTIC/MICROSC OPIC COLITISC. SIGMOID COLON POLYP, BIOPSY- SESSILE SERRATED POLYP/ADENOMA Signing Pathologist Direct Phone Line: [phone] signed by Kenji Hercules MD on 02/26/2017 at 3:21 [id number] x 3Diarrhea, rule out microscopic colitisA. Right/ascending [...] and hyperserrations. Dysplasia and malignancyare not seen.POCT-GLUCOSE [id number] 16:58:00 Test Item Value Reference Range Interpretation Comments POC-GLUCOSE METER 144 mg/dL 70-110 H TESTED AT [place] [address] ([facility]) (test code = [facility] 1538) [address] POCT-GLUCOSE [id number] 14:21:00 Test Item Value Reference Range Interpretation Comments POC-GLUCOSE METER 118 mg/dL 70-110 H TESTED AT [facility] [address] ([facility]) (test code = [facility] 1538) [address] BEDSIDE GLUCOSE [id number] 21:51:00 Test Item Value Reference Range Interpretation Comments Gluc POC [facility] (test code = Gluc POC 148.0 65-110 H [facility]) [facility] GLUCOSE [id number] 21:51:00 Test Item Value Reference Range Interpretation Comments Comment1 (test code = Comment1) Notify RN/MD [facility] GLUCOSE [id number] 16:52:00 Test Item Value Reference Range Interpretation Comments Comment1 (test code = Comment1) Notify RN/ [facility] GLUCOSE [id number] 16:52:00 Test Item Value Reference Range Interpretation Comments Gluc POC [facility] (test code = Gluc POC 140.0 65-110 H [facility]) [facility] GLUCOSE [id number] 12:45:00 Test Item Value Reference Range Interpretation Comments Comment1 (test code = Comment1) Notify RN/ [facility] GLUCOSE [id number] 12:45:00 Test Item Value Reference Range Interpretation Comments Gluc POC Lifsc[facility] (test code = Gluc POC 137.0 65-110 H [facility]) [facility] [id number] 10:30:00 Test Item Value Reference Range Interpretation Comments Globulin (test code = Globulin) 3.3 2.0-4.0 N [facility] HospitalUlzikhhNDBOMYVOM1303-43-34 10:30:00 Test Item Value Reference Range Interpretation Comments Total Protein (test code = Total 5.4 6.4-8.4 L Protein) [facility] HospitalBkbgrayTQAXKSOSV4366-50-84 10:30:00 Test Item Value Reference Range Interpretation Comments Albumin Lvl (test code = Albumin Lvl) 2.1 3.5-5.0 L [facility] HospitalNxbfcpnQLGXVVMFZ2948-49-70 10:30:00 Test Item Value Reference Range Interpretation Comments ALT (test code = ALT) 131.0 See_Comment H [Auto mated message] The system which ge nerated this result transmit porsche reference range : <=65. The reference range was not used to interpr et this result as alexia l/abnormal. [facility] HospitalAqqwjylTJFDTTZRY1653-47-52 10:30:00 Test Item Value Reference Range Interpretation Comments Alk Phos (test code = Alk Phos) 360.0 39-136 H [facility] HospitalBwaowgiIYXBKMCNZ1481-82-60 10:30:00 Test Item Value Reference Range Interpretation Comments A/G Ratio (test code = A/G Ratio) 0.6 1 0.7-1.6 L [facility] HospitalHwwwddvVSZHQLCIE1273-74-89 10:30:00 Test Item Value Reference Range Interpretation Comments AST (test code = AST) 144.0 See_Comment H [Auto mated message] The system which ge nerated this result transmit porsche reference range : <=37. The reference range was not used to interpr et this result as alexia l/abnormal. [facility] HospitalBxvdfwjTSPCVXPQR9115-43-24 10:30:00 Test Item Value Reference Range Interpretation Comments Bili Indirect (test 0.2 See_Comment N [Automa porsche message] The code = Bili Indirect) system which generated this result tra nsmitted reference range : <=1.0. The reference r evelyn was not used to int erpret this result as normal/abnormal . [facility] HospitalOghqxxbQOSXFMAPW3475-09-99 10:30:00 Test Item Value Reference Range Interpretation Comments Bili Total (test code = Bili Total) 0.3 0.2-1.3 N [facility] HospitalApgxlqaHYOYAZZFP0646-29-27 10:30:00 Test Item Value Reference Range Interpretation Comments Bili Direct (test code 0.1 See_Comment N [Aut omated message] The = Bili Direct) system which generated this result tra nsmitted reference range : <=0.3. The reference r evelyn was not used to int erpret this result as alexia l/abnormal. [facility] HospitalQwtlgtvVOHPJVOWY0097-78-69 10:30:00 Test Item Value Reference Range Interpretation Comments Magnesium Lvl (test code = Magnesium 2.4 1.8-2.4 N Lvl) [facility] HospitalLslkmbuIKFSDKFEK2403-06-53 10:30:00 Test Item Value Reference Range Interpretation Comments Potassium Lvl (test code = Potassium 4.1 3.5-5.1 N Lvl) [facility] HospitalOrqzbotGERFSEOEA0309-09-75 10:30:00 Test Item Value Reference Range Interpretation Comments Chloride Lvl (test code = Chloride Lvl) 107.0 95-109 N [facility] HospitalZmvyaceIAVUERHTM9292-25-40 10:30:00 Test Item Value Reference Range Interpretation Comments Sodium Lvl (test code = Sodium Lvl) 140.0 135-145 N [facility] HospitalJurxofqDNTIQMWFZ6585-45-32 10:30:00 Test Item Value Reference Range Interpretation Comments Calcium Lvl (test code = Calcium Lvl) 8.0 8.5-10.5 L [facility] HospitalTklpzmbDKPNBFOOW0290-83-62 10:30:00 Test Item Value Reference Range Interpretation Comments CO2 (test code = CO2) 19.0 24-32 L [facility] HospitalNpsnqsyVXMSQQHOM0919-15-36 10:30:00 Test Item Value Reference Range Interpretation Comments Glucose Lvl (test code = Glucose Lvl) 104.0 [facility] HospitalJqijkujLMZBMZCBL3399-27-46 10:30:00 Test Item Value Reference Range Interpretation Comments BUN (test code = BUN) 21.0 7-22 N [facility] HospitalNsggeonYOJAFFKWL9005-50-40 10:30:00 Test Item Value Reference Range Interpretation Comments Creatinine Lvl (test code = Creatinine 1.7 0.5-1.4 H Lvl) [facility] HospitalKvaxypzSNUWEBYVA6747-01-37 10:30:00 Test Item Value Reference Range Interpretation Comments AGAP (test code = AGAP) 18.1 10.0-20.0 N [facility]WmqwnvmFYAUBMTPNU9764-67-31 10:30:00 Test Item Value Reference Range Interpretation Comments Monocytes # (test code 0.9 See_Comment H [Aut omated message] The = Monocytes #) system which generated this result tra nsmitted reference range : <=0.8. The reference r evelyn was not used to int erpret this result as normal/abnormal . [facility]MuxuqeoKRVCDSHSBB5559-34-17 10:30:00 Test Item Value Reference Range Interpretation Comments Basophils # (test code 0.1 See_Comment N [Aut omated message] The = Basophils #) system which generated this result tra nsmitted reference range : <=0.2. The reference r evelyn was not used to int erpret this result as normal/abnormal . [facility]UowemwsTRDXMLOHJQ4249-27-39 10:30:00 Test Item Value Reference Range Interpretation Comments Eosinophils (test code = 16.0 See_Comment H [A utomated message] The Eosinophils) system which ge nerated this result tra nsmitted reference range : <=4.0. The reference r evelyn was not used to int erpret this result as normal/abnormal . [facility]VfmzbfiZTIMKLRRJA0308-09-25 10:30:00 Test Item Value Reference Range Interpretation Comments Monocytes (test code = Monocytes) 9.1 2.0-12.0 N [facility]PflxlxxLYIVNIYDDW8442-90-86 10:30:00 Test Item Value Reference Range Interpretation Comments Basophils (test code = 1.5 See_Comment H [Aut omated message] The Basophils) system which ge nerated this result tra nsmitted reference range : <=1.0. The reference r evelyn was not used to int erpret this result as normal/abnormal . [facility]manGgxiareLMHTNKQQDC1081-35-02 10:30:00 Test Item Value Reference Range Interpretation Comments Segs-Bands # (test code = Segs-Bands #) 4.3 1.5-8.1 N [facility]manBpacsweKELFYKPEOE0531-01-37 10:30:00 Test Item Value Reference Range Interpretation Comments Lymphocytes # (test code = Lymphocytes 3.2 1.0-5.5 N #) [facility]OqdvulzWPIMRDPZFN9985-79-87 10:30:00 Test Item Value Reference Range Interpretation Comments Eosinophils # (test code 1.6 See_Comment H [A utomated message] The = Eosinophils #) system whic h generated this result tra nsmitted reference range : <=0.5. The reference r evelyn was not used to int erpret this result as normal/abnormal . [facility]WwrtgfuBCIHHLVBFY7362-20-75 10:30:00 Test Item Value Reference Range Interpretation Comments Lymphocytes (test code = Lymphocytes) 31.4 20.0-40.0 N [facility]VbzcnnkCCWOCZRZRA9431-66-46 10:30:00 Test Item Value Reference Range Interpretation Comments Segs (test code = Segs) 42.0 45.0-75.0 L [facility]LoccxfvMLRTTQACGD6993-05-74 10:30:00 Test Item Value Reference Range Interpretation Comments RDW (test code = RDW) 15.0 11.5-14.5 H [facility]manMkhxewgMBFTAGMPTG2721-43-68 10:30:00 Test Item Value Reference Range Interpretation Comments MCHC (test code = MCHC) 33.9 32.0-36.0 N [facility]manSkvihyeWQRVRKCDCS3915-34-77 10:30:00 Test Item Value Reference Range Interpretation Comments MCH (test code = MCH) 31.0 pg 27.0-31.0 N [facility]manJkiatwxQPYLMSSBIH9641-10-77 10:30:00 Test Item Value Reference Range Interpretation Comments MCV (test code = MCV) 91.4 81.0-99.0 N [facility]manJultzwlJPSJZHHRWK9595-31-37 10:30:00 Test Item Value Reference Range Interpretation Comments Hct (test code = Hct) 36.8 36.0-48.0 N [facility]manFpyloiuDLPWLBSCCH0854-45-91 10:30:00 Test Item Value Reference Range Interpretation Comments Hgb (test code = Hgb) 12.5 12.0-16.0 N [facility]manBjczbtaWBTWBWAKXS2259-78-99 10:30:00 Test Item Value Reference Range Interpretation Comments MPV (test code = MPV) 10.0 7.4-10.4 N [facility]JjxzkhfFZWVUFXYGR8381-24-54 10:30:00 Test Item Value Reference Range Interpretation Comments Platelet (test code = Platelet) 157.0 133-450 N [facility]manDijfpcfUDEBGXZZTC3952-68-17 10:30:00 Test Item Value Reference Range Interpretation Comments RBC (test code = RBC) 4.03 4.20-5.40 L [facility]KjfwwowHIEMAKETPL1511-03-78 10:30:00 Test Item Value Reference Range Interpretation Comments WBC (test code = WBC) 10.1 3.7-10.4 N [facility] HospitalIghremrAAZLLUUEP3368-38-33 13:51:00 Test Item Value Reference Range Interpretation Comments A/G Ratio (test code = A/G Ratio) 0.7 1 0.7-1.6 N [facility] HospitalFzkuhlzWEKOSAJVZ2382-12-83 13:51:00 Test Item Value Reference Range Interpretation Comments Bili Indirect (test 0.2 See_Comment N [Automa porsche message] The code = Bili Indirect) system which generated this result tra nsmitted reference range : <=1.0. The reference r evelyn was not used to int erpret this result as normal/abnormal . [facility] HospitalSayjnseNUCBQDNRQ1380-98-78 13:51:00 Test Item Value Reference Range Interpretation Comments Globulin (test code = Globulin) 3.2 2.0-4.0 N [facility] HospitalDxyjoabCJRYLECVJ4554-51-62 13:51:00 Test Item Value Reference Range Interpretation Comments Total Protein (test code = Total 5.6 6.4-8.4 L Protein) [facility] HospitalWchhqsaSKNKIYWWC2972-64-33 13:51:00 Test Item Value Reference Range Interpretation Comments Albumin Lvl (test code = Albumin Lvl) 2.4 3.5-5.0 L [facility] HospitalViwndwbKSJPQDQMQ9456-32-93 13:51:00 Test Item Value Reference Range Interpretation Comments Bili Direct (test code 0.2 See_Comment N [Aut omated message] The = Bili Direct) system which generated this result tra nsmitted reference range : <=0.3. The reference r evelyn was not used to int erpret this result as alexia l/abnormal. [facility]XmlwgtjHKJRWLEMK9012-65-66 13:51:00 Test Item Value Reference Range Interpretation Comments AST (test code = AST) 345.0 See_Comment H [Auto mated message] The system which ge nerated this result transmit porsche reference range : <=37. The reference range was not used to interpr et this result as alexia l/abnormal. [facility]aleIgqzybqDDIWLNSFC2952-81-30 13:51:00 Test Item Value Reference Range Interpretation Comments Alk Phos (test code = Alk Phos) 469.0 39-136 H [facility]aleMgvzqoaADTIVBLWX6543-62-65 13:51:00 Test Item Value Reference Range Interpretation Comments Bili Total (test code = Bili Total) 0.4 0.2-1.3 N [facility]aleMfzwlrlARUXBNKFJ3423-37-88 13:51:00 Test Item Value Reference Range Interpretation Comments ALT (test code = ALT) 192.0 See_Comment H [Auto mated message] The system which ge nerated this result transmit porsche reference range : <=65. The reference range was not used to interpr et this result as alexia l/abnormal. [facility]aleIqlfcghBEHJFQWFH4398-54-33 10:08:00 Test Item Value Reference Range Interpretation Comments Magnesium Lvl (test code = Magnesium 1.6 1.8-2.4 L Lvl) [facility] HospitalOoybpvaWRVPQUPHE1643-24-98 10:08:00 Test Item Value Reference Range Interpretation Comments AGAP (test code = AGAP) 15.6 10.0-20.0 N [facility]aleCxgvgytPVQUFHDSP9699-72-97 10:08:00 Test Item Value Reference Range Interpretation Comments CO2 (test code = CO2) 21.0 24-32 L [facility]valeTnlpoktIVTXYXDTH9446-73-84 10:08:00 Test Item Value Reference Range Interpretation Comments Potassium Lvl (test code = Potassium 3.6 3.5-5.1 N Lvl) [facility]aleNofoqsvAJCCADUEY1819-67-98 10:08:00 Test Item Value Reference Range Interpretation Comments Chloride Lvl (test code = Chloride Lvl) 109.0 95-109 N [facility] HospitalPdenpzbVEOOILYOK2584-88-87 10:08:00 Test Item Value Reference Range Interpretation Comments Calcium Lvl (test code = Calcium Lvl) 7.7 8.5-10.5 L [facility] HospitalPmehwaiGKZJCGAVS5622-03-14 10:08:00 Test Item Value Reference Range Interpretation Comments Sodium Lvl (test code = Sodium Lvl) 142.0 135-145 N [facility] HospitalOxaffmoIAVBGUGPH3376-88-54 10:08:00 Test Item Value Reference Range Interpretation Comments BUN (test code = BUN) 23.0 7-22 H [facility] HospitalNzjcglyTXXUEMHJU8723-10-76 10:08:00 Test Item Value Reference Range Interpretation Comments Creatinine Lvl (test code = Creatinine 1.7 0.5-1.4 H Lvl) [facility] HospitalEussxioJPHZUHQVD6653-30-94 10:08:00 Test Item Value Reference Range Interpretation Comments Glucose Lvl (test code = Glucose Lvl) 119.0 [facility]manLxzrdeaEFEUQGAISR7526-76-91 10:08:00 Test Item Value Reference Range Interpretation Comments PT (test code = PT) 14.8 s 12.0-14.7 H [facility]manOwsvetvHVVSELZWUK5781-87-20 10:08:00 Test Item Value Reference Range Interpretation Comments INR (test code = INR) 1.16 1 0.85-1.17 N [facility]manLwjofjwJETVMJDXOV6430-91-66 10:08:00 Test Item Value Reference Range Interpretation Comments PTT (test code = PTT) 34.9 s 22.9-35.8 N [facility]manVdropemFMVIWUBGMG0180-91-81 10:08:00 Test Item Value Reference Range Interpretation Comments Basophils # (test code 0.1 See_Comment N [Aut omated message] The = Basophils #) system which generated this result tra nsmitted reference range : <=0.2. The reference r evelyn was not used to int erpret this result as normal/abnormal . [facility]manUdszcajDWMNHUILQE8526-55-66 10:08:00 Test Item Value Reference Range Interpretation Comments Segs-Bands # (test code = Segs-Bands #) 4.1 1.5-8.1 N [facility]manGrfqdktUAMPNMFQII8207-62-88 10:08:00 Test Item Value Reference Range Interpretation Comments Lymphocytes # (test code = Lymphocytes 2.8 1.0-5.5 N #) [facility]manUanuqtnGCYCGDWHZK7561-73-27 10:08:00 Test Item Value Reference Range Interpretation Comments Monocytes # (test code 0.8 See_Comment N [Aut omated message] The = Monocytes #) system which generated this result tra nsmitted reference range : <=0.8. The reference r evelyn was not used to int erpret this result as normal/abnormal . [facility]manPkwhgshYYINLJHNJA0710-17-71 10:08:00 Test Item Value Reference Range Interpretation Comments Eosinophils # (test code 1.8 See_Comment H [A utomated message] The = Eosinophils #) system whic h generated this result tra nsmitted reference range : <=0.5. The reference r evelyn was not used to int erpret this result as normal/abnormal . [facility]manLdpyabjVUOTICRMTS8638-93-82 10:08:00 Test Item Value Reference Range Interpretation Comments Lymphocytes (test code = Lymphocytes) 28.5 20.0-40.0 N [facility]manVvanuavLSQNBFEBPW1074-51-83 10:08:00 Test Item Value Reference Range Interpretation Comments Monocytes (test code = Monocytes) 8.6 2.0-12.0 N [facility]manUyjhzyeSBRNFCVNQH9930-70-72 10:08:00 Test Item Value Reference Range Interpretation Comments Eosinophils (test code = 19.0 See_Comment H [A utomated message] The Eosinophils) system which ge nerated this result tra nsmitted reference range : <=4.0. The reference r evelyn was not used to int erpret this result as normal/abnormal . [facility]manWydwjyrFSPNJNFFKG5865-90-70 10:08:00 Test Item Value Reference Range Interpretation Comments Basophils (test code = 1.3 See_Comment H [Aut omated message] The Basophils) system which ge nerated this result tra nsmitted reference range : <=1.0. The reference r evelyn was not used to int erpret this result as normal/abnormal . [facility]OgrtcqhIUBBWPXRYQ0339-51-14 10:08:00 Test Item Value Reference Range Interpretation Comments Segs (test code = Segs) 42.6 45.0-75.0 L [facility]manCvivytwXYTEYQTHFY9847-14-71 10:08:00 Test Item Value Reference Range Interpretation Comments WBC (test code = WBC) 9.7 3.7-10.4 N [facility]manJhhgbzsZHBGBXEZDV7774-99-50 10:08:00 Test Item Value Reference Range Interpretation Comments RBC (test code = RBC) 3.67 4.20-5.40 L [facility]manYnftibvYAOMKQDMBE8549-45-63 10:08:00 Test Item Value Reference Range Interpretation Comments MCHC (test code = MCHC) 34.9 32.0-36.0 N [facility]manJiqbyujBOEEOFMEMX0218-55-24 10:08:00 Test Item Value Reference Range Interpretation Comments RDW (test code = RDW) 15.1 11.5-14.5 H [facility]manOpjeiovQYSZQPWOOS8337-63-32 10:08:00 Test Item Value Reference Range Interpretation Comments Platelet (test code = Platelet) 169.0 133-450 N [facility]manMlgwqkwWAOWMEBPFN7526-22-12 10:08:00 Test Item Value Reference Range Interpretation Comments MCV (test code = MCV) 90.5 81.0-99.0 N [facility]manAsmlosxXFVFWSEHOC0497-42-89 10:08:00 Test Item Value Reference Range Interpretation Comments MCH (test code = MCH) 31.6 pg 27.0-31.0 H [facility]manGlzsnjfZIVQIVCWFF3104-99-63 10:08:00 Test Item Value Reference Range Interpretation Comments MPV (test code = MPV) 9.5 7.4-10.4 N [facility]manPbqfrhgXBTNDPGOFZ7957-32-46 10:08:00 Test Item Value Reference Range Interpretation Comments Hgb (test code = Hgb) 11.6 12.0-16.0 L [facility]manSzqpawaSRAIORAQRR5336-62-62 10:08:00 Test Item Value Reference Range Interpretation Comments Hct (test code = Hct) 33.2 36.0-48.[address] [facility]QjlllzyQWEDANYLMI2252-94-55 10:08:00 Test Item Value Reference Range Interpretation Comments Hep Bs Ag (test code Negative *NA*(03/24/2011 = Hep Bs Ag) 05:08:00) ?? [facility] HospitalEtlsdwrTICFQJOPW8064-21-65 10:24:00 Test Item Value Reference Range Interpretation Comments Amylase Lvl (test code = Amylase Lvl) 36.0 25-115 N [facility] HospitalXjpsavvOYXMQYVNR1581-17-62 10:24:00 Test Item Value Reference Range Interpretation Comments Lipase Lvl (test code = Lipase Lvl) 242.0 73-393 N [facility] HospitalRovzjgeJTVDKWNGQ9181-58-77 10:24:00 Test Item Value Reference Range Interpretation Comments Glucose Lvl (test code = Glucose Lvl) 97.0 [facility] HospitalVtekxezJQTSVDEME0510-27-52 10:24:00 Test Item Value Reference Range Interpretation Comments BUN (test code = BUN) 22.0 7-22 N [facility] HospitalGcfrhkvISSWVTENH5734-84-17 10:24:00 Test Item Value Reference Range Interpretation Comments Creatinine Lvl (test code = Creatinine 1.5 0.5-1.4 H Lvl) [facility] HospitalNjitfhdWWQSMXJGL9473-05-80 10:24:00 Test Item Value Reference Range Interpretation Comments CO2 (test code = CO2) 20.0 24-32 L [facility] HospitalWccxeeyDDCKNHSRU0922-18-60 10:24:00 Test Item Value Reference Range Interpretation Comments Sodium Lvl (test code = Sodium Lvl) 144.0 135-145 N [facility] HospitalXbordghARPFHOJLP8886-34-86 10:24:00 Test Item Value Reference Range Interpretation Comments Calcium Lvl (test code = Calcium Lvl) 7.8 8.5-10.5 L [facility] HospitalCqhrsdeJRNXBBYQN6479-16-12 10:24:00 Test Item Value Reference Range Interpretation Comments Chloride Lvl (test code = Chloride Lvl) 108.0 95-109 N [facility] HospitalNfkvbkwOUXLOZHQP6513-06-64 10:24:00 Test Item Value Reference Range Interpretation Comments Total Protein (test code = Total 4.7 6.4-8.4 L Protein) [facility] HospitalHhgzjvbURFDBNMIG8581-38-32 10:24:00 Test Item Value Reference Range Interpretation Comments AGAP (test code = AGAP) 19.2 10.0-20.0 N [facility] HospitalDufijydPKZFKEOIC0349-66-82 10:24:00 Test Item Value Reference Range Interpretation Comments Globulin (test code = Globulin) 2.8 2.0-4.0 N [facility] HospitalOhseennXGCNPAQRM6970-15-48 10:24:00 Test Item Value Reference Range Interpretation Comments Albumin Lvl (test code = Albumin Lvl) 1.9 3.5-5.0 L [facility] HospitalRdjwwunZOMVNZXON7022-71-96 10:24:00 Test Item Value Reference Range Interpretation Comments ALT (test code = ALT) 194.0 See_Comment H [Auto mated message] The system which ge nerated this result transmit porsche reference range : <=65. The reference range was not used to interpr et this result as alexia l/abnormal. [facility] HospitalCncvfmpSCTJIZZAX4070-12-29 10:24:00 Test Item Value Reference Range Interpretation Comments A/G Ratio (test code = A/G Ratio) 0.7 1 0.7-1.6 N [facility] HospitalZujmjuuQCGMCDAHM2022-45-89 10:24:00 Test Item Value Reference Range Interpretation Comments B/C Ratio (test code = B/C Ratio) 15.0 1 6-25 N [facility] HospitalJqyiiynPJEPXFLDW3208-58-95 10:24:00 Test Item Value Reference Range Interpretation Comments Bili Total (test code = Bili Total) 1.0 0.2-1.3 N [facility] HospitalJqrqjqtWRFYIOFKA9695-15-11 10:24:00 Test Item Value Reference Range Interpretation Comments AST (test code = AST) 789.0 See_Comment H [Auto mated message] The system which ge nerated this result transmit porsche reference range : <=37. The reference range was not used to interpr et this result as alexia l/abnormal. [facility] HospitalMfbqmpoPLJAALYYD9285-06-24 10:24:00 Test Item Value Reference Range Interpretation Comments Alk Phos (test code = Alk Phos) 289.0 39-136 H [facility] HospitalZvyyvqfTBUFPBPPJ5081-33-02 10:24:00 Test Item Value Reference Range Interpretation Comments Potassium Lvl (test code = Potassium 3.2 3.5-5.1 L Lvl) [facility]KahpjhcVGFZNBAYHY5355-77-58 10:24:00 Test Item Value Reference Range Interpretation Comments RDW (test code = RDW) 14.8 11.5-14.5 H [facility]VckcfzfSPBRYLWPVG0578-98-02 10:24:00 Test Item Value Reference Range Interpretation Comments MPV (test code = MPV) 9.8 7.4-10.4 N [facility]YitjevnQJHEFHBTWL7822-14-06 10:24:00 Test Item Value Reference Range Interpretation Comments Platelet (test code = Platelet) 189.0 133-450 N [facility]OaauqoaEVFPCYHQIZ5361-74-39 10:24:00 Test Item Value Reference Range Interpretation Comments MCH (test code = MCH) 31.0 pg 27.0-31.0 N [facility]VpspbmmSGFKZDPOKT0076-02-11 10:24:00 Test Item Value Reference Range Interpretation Comments MCHC (test code = MCHC) 34.1 32.0-36.0 N [facility]XrygbfpBNEYWWVGYJ2946-09-61 10:24:00 Test Item Value Reference Range Interpretation Comments Hct (test code = Hct) 32.7 36.0-48.0 L [facility]manUgecbjgYICUGWNWRT5055-70-90 10:24:00 Test Item Value Reference Range Interpretation Comments MCV (test code = MCV) 91.0 81.0-99.0 N [facility]KtdanssJAOBSUHUMT7717-17-24 10:24:00 Test Item Value Reference Range Interpretation Comments Hgb (test code = Hgb) 11.2 12.0-16.0 L [facility]manFrnnfnzBHEBVONJSZ7795-93-57 10:24:00 Test Item Value Reference Range Interpretation Comments WBC (test code = WBC) 6.7 3.7-10.4 N [facility]YdvumhvTAOHCORVXE5741-86-66 10:24:00 Test Item Value Reference Range Interpretation Comments RBC (test code = RBC) 3.6 4.20-5.40 L [facility]manTvrqlkaDSYSJXPOFA5109-71-49 10:24:00 Test Item Value Reference Range Interpretation Comments Large Plt (test code = Slight *ABN*(03/23/2011 A Large Plt) 05:24:00) ?? [facility]XqheqvqHZWKRODCCK7267-32-11 10:24:00 Test Item Value Reference Range Interpretation Comments Lymphocytes # (test code = Lymphocytes 2.1 1.0-5.5 N #) [facility]SgkjszwFJOPTECBKR0870-76-54 10:24:00 Test Item Value Reference Range Interpretation Comments Segs-Bands # (test code = Segs-Bands #) 2.7 1.5-8.1 N [facility]manBngibqyRHYIVRSGJF2117-63-67 10:24:00 Test Item Value Reference Range Interpretation Comments Monocytes # (test code 0.9 See_Comment H [Aut omated message] The = Monocytes #) system which generated this result tra nsmitted reference range : <=0.8. The reference r evelyn was not used to int erpret this result as normal/abnormal . [facility]manEnsibvoCJGLVUXHLG1043-52-47 10:24:00 Test Item Value Reference Range Interpretation Comments Plt Morph (test code = Normal (03/23/2011 N Plt Morph) 05:24:00) ?? [facility]manTiarrakTKBVDRDZCK1586-42-52 10:24:00 Test Item Value Reference Range Interpretation Comments Eosinophils (test code = 15.0 See_Comment H [A utomated message] The Eosinophils) system which ge nerated this result tra nsmitted reference range : <=4.0. The reference r evelyn was not used to int erpret this result as normal/abnormal . [facility]manAgnjtchMENWHDJPPS0335-10-33 10:24:00 Test Item Value Reference Range Interpretation Comments Atypical Lymphs (test code = Atypical 0.0 N Lymphs) [facility]manBfrcmnyLIOZRUNGNI7581-61-82 10:24:00 Test Item Value Reference Range Interpretation Comments Bands (test code = 1.0 See_Comment N [Automat ed message] The Bands) system which ge nerated this result transmit porsche reference range : <=11.0. The reference r evelyn was not used to interpr et this result as alexia l/abnormal. [facility]manVcmvkksZQZHPVBTXF1214-55-21 10:24:00 Test Item Value Reference Range Interpretation Comments Basophils (test code = 1.0 See_Comment N [Aut omated message] The Basophils) system which ge nerated this result tra nsmitted reference range : <=1.0. The reference r evelyn was not used to int erpret this result as normal/abnormal . [facility]manAgzwzsyQDSSBFSBCW5993-72-63 10:24:00 Test Item Value Reference Range Interpretation Comments Eosinophils # (test code 1.0 See_Comment H [A utomated message] The = Eosinophils #) system whic h generated this result tra nsmitted reference range : <=0.5. The reference r evelyn was not used to int erpret this result as normal/abnormal . [facility]manKejefexCLPYPVWMJN0991-56-80 10:24:00 Test Item Value Reference Range Interpretation Comments Lymphocytes (test code = Lymphocytes) 31.0 20.0-40.0 N [facility]manCuffwgyOHILPCYHWI0650-57-48 10:24:00 Test Item Value Reference Range Interpretation Comments Monocytes (test code = Monocytes) 13.0 2.0-12.[address] [facility] HospitalYawjlsqKOGMIKQLGU1640-66-59 10:24:00 Test Item Value Reference Range Interpretation Comments Segs (test code = Segs) 39.0 45.0-75.[address] [facility] HospitalQvuksikVMUYVLIQLT7173-15-68 10:24:00 Test Item Value Reference Range Interpretation Comments Basophils # (test code 0.1 See_Comment N [Aut omated message] The = Basophils #) system which generated this result tra nsmitted reference range : <=0.2. The reference r evelyn was not used to int erpret this result as normal/abnormal . [facility] HospitalEykhgonKZTXYKPDTS0526-73-58 10:24:00 Test Item Value Reference Range Interpretation Comments Prealbumin (test code = Prealbumin) 10.0 18.0-45.[address] [facility] HospitalPxzfvlaWNMQVOAOXV6861-36-62 22:20:00 Test Item Value Reference Range Interpretation Comments UA Urobilinogen (test code *NA*(03/22/2011 0.1-1.0 = UA Urobilinogen) 17:20:00) ?? [facility] HospitalDbcjnnaMLBFCPQAZF9854-55-34 22:20:00 Test Item Value Reference Range Interpretation Comments UA Hyal Cast (test 3.0 See_Comment H [Automat ed message] The code = UA Hyal Cast) system which generated this result transmit porsche reference range : <=2. The reference range was not used to interpr et this result as alexia l/abnormal. [facility] HospitalNvafkddBFEELRMCAU9886-48-31 22:20:00 Test Item Value Reference Range Interpretation Comments UA Amorph Jagruti (test Occasional /HPF code = UA Amorph *NA*(03/22/2011 Jagruti) 17:20:00) ?? [facility] HospitalUonmyzlIKKOBWFWGT5550-17-36 22:20:00 Test Item Value Reference Range Interpretation Comments UA Mucus (test code = Few /LPF UA Mucus) *NA*(03/22/2011 17:20:00) ?? [facility] HospitalXahabshXBSWPVZHGR7856-52-84 22:20:00 Test Item Value Reference Range Interpretation Comments UA Sq Epi (test code = Few /LPF UA Sq Epi) *NA*(03/22/2011 17:20:00) ?? [facility]HkzfeiqSHFCPPMUSI7889-72-70 22:20:00 Test Item Value Reference Range Interpretation Comments UA RBC (test code = <1.0 See_Comment N [Automa porsche message] The UA RBC) system which ge nerated this result transmit porsche reference range : <=2. The reference range was not used to interpr et this result as alexia l/abnormal. [facility]JJQYC3050[facility]66-61 22:20:00 Test Item Value Reference Range Interpretation Comments UA Nitrite (test code Negative (03/22/2011 N = UA Nitrite) 17:20:00) [facility]gboegqZJHCRTBRBD2512-80-27 22:20:00 Test Item Value Reference Range Interpretation Comments UA Leuk Est (test Negative (03/22/2011 N code = UA Leuk Est) 17:20:00) ?? [facility] HospitalJiwrqonRABKWQXPIE7895-77-92 22:20:00 Test Item Value Reference Range Interpretation Comments UA Protein (test code = 200 mg/dL A UA Protein) *ABN*(03/22/2011 17:20:00) ?? [facility] HospitalQauptjyYDRETIXNPZ6727-05-26 22:20:00 Test Item Value Reference Range Interpretation Comments UA Ketones (test code = 10 mg/dL A UA Ketones) *ABN*(03/22/2011 17:20:00) ?? [facility] HospitalWuwpxhxJTAWFZLEKR6907-47-21 22:20:00 Test Item Value Reference Range Interpretation Comments UA Bili (test code = Negative *NA*(03/22/2011 UA Bili) 17:20:00) ?? [facility] HospitalKzbwjitJJHVHALYUK7869-95-95 22:20:00 Test Item Value Reference Range Interpretation Comments UA Blood (test code = Moderate A UA Blood) *ABN*(03/22/2011 17:20:00) ?? [facility]AmhpyayYMTGSKKBZY0933-43-98 22:20:00 Test Item Value Reference Range Interpretation Comments UA Glucose (test code Negative mg/dL = UA Glucose) *NA*(03/22/2011 17:20:00) ?? [facility] HospitalElcjysoOBVODDOYBG6027-45-71 22:20:00 Test Item Value Reference Range Interpretation Comments UA Spec Grav (test code = UA Spec 1.016 1 N Grav) [facility]PofwjnrEHMAJTAPTH1513-09-95 22:20:00 Test Item Value Reference Range Interpretation Comments UA pH (test code = UA pH) 5.5 1 5.0-8.[address] [facility] HospitalOoehsiiYJCBYVOLCG7156-37-19 22:20:00 Test Item Value Reference Range Interpretation Comments UA Color (test code = Yellow *NA*(03/22/2011 UA Color) 17:20:00) ?? [facility] HospitalHtcewojPXOUCOMXGO2289-54-53 22:20:00 Test Item Value Reference Range Interpretation Comments UA Turbidity (test code Slight A = UA Turbidity) *ABN*(03/22/2011 17:20:00) ?? [facility] HospitalCmjrlgvNDLEILNLB9673-89-06 14:40:00 Test Item Value Reference Range Interpretation Comments Bili Indirect (test 0.2 See_Comment N [Automa porsche message] The code = Bili Indirect) system which generated this result tra nsmitted reference range : <=1.0. The reference r evelyn was not used to int erpret this result as normal/abnormal . [facility] HospitalIemdvhvIJTEKYXEF0697-78-47 14:40:00 Test Item Value Reference Range Interpretation Comments Bili Direct (test code 0.1 See_Comment N [Aut omated message] The = Bili Direct) system which generated this result tra nsmitted reference range : <=0.3. The reference r evelyn was not used to int erpret this result as alexia l/abnormal. [facility] HospitalDbgbudtPGSIUGZHRG1143-52-18 14:40:00 Test Item Value Reference Range Interpretation Comments Hep A IgM (test code Negative *NA*(03/22/2011 = Hep A IgM) 09:40:00) ?? [facility] HospitalPhrckuqTDQHSBIFZB9027-29-60 14:40:00 Test Item Value Reference Range Interpretation Comments Hep B Core IgM (test Negative *NA*(03/22/2011 code = Hep B Core 09:40:00) ?? IgM) [facility] HospitalMcoragqYKNRXJSWBX3893-87-16 14:40:00 Test Item Value Reference Range Interpretation Comments Hep C Ab (test code = Negative *NA*(03/22/2011 Hep C Ab) 09:40:00) ?? [facility] HospitalWnyyhssKNLOAZKXQR9681-46-16 14:40:00 Test Item Value Reference Range Interpretation Comments Hep Bs Ag (test code = See Note 9(03/22/2011 N Hep Bs Ag) 09:40:00) ?? [facility] HospitalJzprgkpNUZMWQMFV0705-61-22 12:05:00 Test Item Value Reference Range Interpretation Comments T4 Free (test code = T4 Free) 1.67 0.76-1.46 H [facility] HospitalOfnbvmdFPDGFEXBP1880-21-34 12:05:00 Test Item Value Reference Range Interpretation Comments TSH (test code = TSH) 0.044 0.360-3.740 L [facility] GLUCOSE RAXEWRY6908-08-97 17:19:00 Test Item Value Reference Range Interpretation Comments Comment1 (test code = Comment1) Sliding Scale [facility] GLUCOSE XCXQIWY3704-55-73 17:19:00 Test Item Value Reference Range Interpretation Comments Gluc POC Lifscn (test code = Gluc POC 152.0 65-110 H Lifscn) [facility] GLUCOSE ITHBSUP2191-73-50 12:36:00 Test Item Value Reference Range Interpretation Comments Comment1 (test code = Comment1) Notify RN/MD [facility] GLUCOSE NXLNRRS2617-94-44 12:36:00 Test Item Value Reference Range Interpretation Comments Gluc POC Lifscn (test code = Gluc POC 116.0 65-110 H Lifscn) [facility] HospitalXamwjscGJGTQMMVR2412-94-11 08:07:00 Test Item Value Reference Range Interpretation Comments AGAP (test code = AGAP) 18.5 10.0-20.0 N [facility] HospitalMmjelvuEUZGIDAIW4426-99-57 08:07:00 Test Item Value Reference Range Interpretation Comments Potassium Lvl (test code = Potassium 3.5 3.5-5.1 N Lvl) [facility] HospitalOadliquBPYPEDTHC2454-75-26 08:07:00 Test Item Value Reference Range Interpretation Comments CO2 (test code = CO2) 21.0 24-32 L [facility] HospitalHpwstxtDURIZYZXF3695-82-00 08:07:00 Test Item Value Reference Range Interpretation Comments Sodium Lvl (test code = Sodium Lvl) 147.0 135-145 H [facility] HospitalKkdbgeiNDPBYNFOF5609-20-60 08:07:00 Test Item Value Reference Range Interpretation Comments Creatinine Lvl (test code = Creatinine 1.4 0.5-1.4 N Lvl) [facility] HospitalRqpinukRMKHNNCXE8041-64-01 08:07:00 Test Item Value Reference Range Interpretation Comments Chloride Lvl (test code = Chloride Lvl) 111.0 95-109 H [facility] HospitalOszczigZDHWLDHVU8611-87-44 08:07:00 Test Item Value Reference Range Interpretation Comments Calcium Lvl (test code = Calcium Lvl) 8.1 8.5-10.5 L [facility] HospitalEkrcaroNJRCKEKJR3789-12-57 08:07:00 Test Item Value Reference Range Interpretation Comments Glucose Lvl (test code = Glucose Lvl) 97.0 [facility] HospitalGsdczygPMNCHVCHF1952-20-19 08:07:00 Test Item Value Reference Range Interpretation Comments BUN (test code = BUN) 21.0 7-22 N [facility] HospitalSyvogipIYONLFOPD8791-67-84 08:07:00 Test Item Value Reference Range Interpretation Comments Magnesium Lvl (test code = Magnesium 1.7 1.8-2.4 L Lvl) [facility]LtwaazkCJMPDHLVMM6006-36-57 08:07:00 Test Item Value Reference Range Interpretation Comments Lymphocytes (test code = Lymphocytes) 16.7 20.0-40.0 L [facility]manPcljswzASCLCSBUYS5981-95-74 08:07:00 Test Item Value Reference Range Interpretation Comments Monocytes (test code = Monocytes) 12.4 2.0-12.0 H [facility]manNpsphnvEUZVDHSRFX2965-05-06 08:07:00 Test Item Value Reference Range Interpretation Comments Segs (test code = Segs) 63.3 45.0-75.0 N [facility]manSbhqiorYLPFMSUKLV8784-45-84 08:07:00 Test Item Value Reference Range Interpretation Comments Eosinophils # (test code 0.6 See_Comment H [A utomated message] The = Eosinophils #) system whic h generated this result tra nsmitted reference range : <=0.5. The reference r evelyn was not used to int erpret this result as normal/abnormal . [facility]manMcsseewAAFDHKNHNQ2302-18-81 08:07:00 Test Item Value Reference Range Interpretation Comments Monocytes # (test code 1.1 See_Comment H [Aut omated message] The = Monocytes #) system which generated this result tra nsmitted reference range : <=0.8. The reference r evelyn was not used to int erpret this result as normal/abnormal . [facility]manCrxkjzqGVZQHMHIPZ5454-22-11 08:07:00 Test Item Value Reference Range Interpretation Comments Basophils # (test code 0.1 See_Comment N [Aut omated message] The = Basophils #) system which generated this result tra nsmitted reference range : <=0.2. The reference r evelyn was not used to int erpret this result as normal/abnormal . [facility]manPkhkoeuHKFKXKKORN4314-97-33 08:07:00 Test Item Value Reference Range Interpretation Comments Lymphocytes # (test code = Lymphocytes 1.5 1.0-5.5 N #) [facility]manLkecybpVSFZBEBBZD0769-65-81 08:07:00 Test Item Value Reference Range Interpretation Comments Segs-Bands # (test code = Segs-Bands #) 5.8 1.5-8.1 N [facility]manTlwbdtbQEUJEENADB2777-07-76 08:07:00 Test Item Value Reference Range Interpretation Comments Basophils (test code = 1.3 See_Comment H [Aut omated message] The Basophils) system which ge nerated this result tra nsmitted reference range : <=1.0. The reference r evelyn was not used to int erpret this result as normal/abnormal . [facility]manGhsodeyYGMMVIJLIX9131-67-52 08:07:00 Test Item Value Reference Range Interpretation Comments Eosinophils (test code = 6.3 See_Comment H [A utomated message] The Eosinophils) system which ge nerated this result tra nsmitted reference range : <=4.0. The reference r evelyn was not used to int erpret this result as normal/abnormal . [facility]VvgpfrcOCZFNAZDYM2895-28-23 08:07:00 Test Item Value Reference Range Interpretation Comments MCH (test code = MCH) 31.6 pg 27.0-31.0 H [facility]manXbvkvxxJWCETFSIBL7968-54-52 08:07:00 Test Item Value Reference Range Interpretation Comments RBC (test code = RBC) 3.56 4.20-5.40 L [facility]manTbhzfxdBCCBPUPHEP3021-51-03 08:07:00 Test Item Value Reference Range Interpretation Comments MCV (test code = MCV) 90.7 81.0-99.0 N [facility]manZknuybsIPVWYJGAQM4629-20-97 08:07:00 Test Item Value Reference Range Interpretation Comments Hct (test code = Hct) 32.3 36.0-48.0 L [facility]manNwbkponDMRGYWIIXE7703-04-54 08:07:00 Test Item Value Reference Range Interpretation Comments Hgb (test code = Hgb) 11.3 12.0-16.0 L [facility]manYoubjpfFKVBTGTYBA3017-95-78 08:07:00 Test Item Value Reference Range Interpretation Comments WBC (test code = WBC) 9.1 3.7-10.4 N [facility]manGbxemhiPZCBNQAFDB2826-63-07 08:07:00 Test Item Value Reference Range Interpretation Comments MPV (test code = MPV) 10.1 7.4-10.4 N [facility]manRgmxcvkRJTSOOULMJ4300-15-99 08:07:00 Test Item Value Reference Range Interpretation Comments Platelet (test code = Platelet) 154.0 133-450 N [facility]manTwabxrvLNRZUPCFCE5728-72-94 08:07:00 Test Item Value Reference Range Interpretation Comments RDW (test code = RDW) 14.7 11.5-14.5 H [facility]manVqepoauJXJHDQWCTJ3153-13-21 08:07:00 Test Item Value Reference Range Interpretation Comments MCHC (test code = MCHC) 34.8 32.0-36.0 N [facility] GLUCOSE LGTNRAB4542-80-02 02:08:00 Test Item Value Reference Range Interpretation Comments Comment1 (test code = Comment1) Notify RN/MD [facility] GLUCOSE GYLWBYV5505-82-39 02:08:00 Test Item Value Reference Range Interpretation Comments Gluc POC Lifscn (test code = Gluc POC 126.0 65-110 H Lifscn) [facility] GLUCOSE HFQRUVL4215-75-10 22:15:00 Test Item Value Reference Range Interpretation Comments Comment2 (test code = Comment2) Sliding Scale [facility] GLUCOSE KSNEZET0061-07-13 17:28:00 Test Item Value Reference Range Interpretation Comments Comment2 (test code = Comment2) Sliding Scale [facility] HospitalClbutwkUZEZMHGOK3518-34-25 14:30:00 Test Item Value Reference Range Interpretation Comments T4 Free (test code = T4 Free) 2.0 0.76-1.46 H [facility] HospitalErtuzcxGAOGLUAKW8406-71-90 07:41:00 Test Item Value Reference Range Interpretation Comments TSH (test code = TSH) 0.042 0.360-3.740 L [facility] HospitalXcvicbvBDEESELFS8031-48-70 07:41:00 Test Item Value Reference Range Interpretation Comments Total CK (test code = Total CK) 31.0 12-191 N [facility] HospitalXholdswPFFVUOMLC2731-29-78 07:01:00 Test Item Value Reference Range Interpretation Comments Lactic Acid Lvl (test code = Lactic 1.6 0.5-2.2 N Acid Lvl) [facility]manDoifahsWQKZDDGJKK9242-04-39 07:01:00 Test Item Value Reference Range Interpretation Comments INR (test code = INR) 1.15 1 0.85-1.17 N [facility]XldsbjkIJCFVNYUKD8583-12-09 07:01:00 Test Item Value Reference Range Interpretation Comments PT (test code = PT) 14.7 s 12.0-14.7 N [facility]manOlbpsueEESRERWNTM5874-81-69 07:01:00 Test Item Value Reference Range Interpretation Comments PTT (test code = PTT) 30.3 s 22.9-35.8 N [facility] HospitalEdujwwsBSWWUSUWP9898-77-07 06:50:00 Test Item Value Reference Range Interpretation Comments Lipase Lvl (test code = Lipase Lvl) 49.0 73-393 L [facility] HospitalFwosllmTPSCCFPYE9377-54-43 06:50:00 Test Item Value Reference Range Interpretation Comments Amylase Lvl (test code = Amylase Lvl) 23.0 25-115 L [facility] HospitalIzkuzjqZOJDTRGJQ3278-53-48 06:50:00 Test Item Value Reference Range Interpretation Comments Phosphorus (test code = Phosphorus) 4.3 2.5-4.5 N [facility] HospitalOiqddzvXCSVWROUO1988-85-17 06:50:00 Test Item Value Reference Range Interpretation Comments A/G Ratio (test code = A/G Ratio) 0.8 1 0.7-1.6 N [facility] HospitalMwmdrfoTKVIGZOPV2352-03-76 06:50:00 Test Item Value Reference Range Interpretation Comments Globulin (test code = Globulin) 3.4 2.0-4.0 N [facility] HospitalHcevuxeFQUYWHTVQ7974-95-50 06:50:00 Test Item Value Reference Range Interpretation Comments ALT (test code = ALT) 33.0 See_Comment N [Auto mated message] The system which ge nerated this result transmit porsche reference range : <=65. The reference range was not used to interpr et this result as alexia l/abnormal. [facility] HospitalImhztalDLVMNIRHA1346-20-56 06:50:00 Test Item Value Reference Range Interpretation Comments AST (test code = AST) 27.0 See_Comment N [Auto mated message] The system which ge nerated this result transmit porsche reference range : <=37. The reference range was not used to interpr et this result as alexia l/abnormal. [facility] HospitalPzkdbvrKJELFZKCM7061-15-83 06:50:00 Test Item Value Reference Range Interpretation Comments Bili Total (test code = Bili Total) 0.4 0.2-1.3 N [facility] HospitalWzvgaetPLXETGYLW7640-63-40 06:50:00 Test Item Value Reference Range Interpretation Comments Total Protein (test code = Total 6.2 6.4-8.4 L Protein) [facility] HospitalApfymjhMUZGDTODD6838-64-11 06:50:00 Test Item Value Reference Range Interpretation Comments Alk Phos (test code = Alk Phos) 109.0 39-136 N [facility] HospitalUxgjatzLOGFFXDCJ9113-49-44 06:50:00 Test Item Value Reference Range Interpretation Comments Albumin Lvl (test code = Albumin Lvl) 2.8 3.5-5.0 L [facility] HospitalKekighnFXBMPHDKK3673-95-93 06:50:00 Test Item Value Reference Range Interpretation Comments B/C Ratio (test code = B/C Ratio) 14.0 1 6-25 N [facility] HospitalNhcrwruCDBOOWTSW0257-12-22 06:50:00 Test Item Value Reference Range Interpretation Comments Calcium Lvl (test code = Calcium Lvl) 8.4 8.5-10.5 L [facility] HospitalQbiapxjVINPVSZWZ3424-96-13 06:50:00 Test Item Value Reference Range Interpretation Comments AGAP (test code = AGAP) 21.8 10.0-20.0 H [facility] HospitalFjhfxxuETWPZMXOT7261-52-10 06:50:00 Test Item Value Reference Range Interpretation Comments CO2 (test code = CO2) 19.0 24-32 L [facility] HospitalXszdgvhVUFAOWTXO2030-40-06 06:50:00 Test Item Value Reference Range Interpretation Comments Chloride Lvl (test code = Chloride Lvl) 105.0 95-109 N [facility] HospitalLuootteAKDZGLZGR5956-02-40 06:50:00 Test Item Value Reference Range Interpretation Comments Sodium Lvl (test code = Sodium Lvl) 142.0 135-145 N [facility] HospitalBabuvbhPXETDPZMJ7918-74-21 06:50:00 Test Item Value Reference Range Interpretation Comments Potassium Lvl (test code = Potassium 3.8 3.5-5.1 N Lvl) [facility] HospitalQslhgleNEHMAIWNZ3785-21-41 06:50:00 Test Item Value Reference Range Interpretation Comments BUN (test code = BUN) 20.0 7-22 N [facility] HospitalWmiyhczCSBFPVKXK5703-11-42 06:50:00 Test Item Value Reference Range Interpretation Comments Creatinine Lvl (test code = Creatinine 1.4 0.5-1.4 N Lvl) [facility] HospitalQriwxieLYBKDKYIR9784-96-52 06:50:00 Test Item Value Reference Range Interpretation Comments Glucose Lvl (test code = Glucose Lvl) 91.0 [facility] HospitalRjxlbcuSGPSGWCPX8774-53-18 06:50:00 Test Item Value Reference Range Interpretation Comments Magnesium Lvl (test code = Magnesium 1.2 1.8-2.4 L Lvl) [facility]qmjrmhBYXIEAUBRL0142-[facility]-68 06:50:00 Test Item Value Reference Range Interpretation Comments Monocytes (test code = Monocytes) 10.3 2.0-12.0 N [facility]WszuhfbAFMMOLTDRQ7954-53-50 06:50:00 Test Item Value Reference Range Interpretation Comments Eosinophils (test code = 6.2 See_Comment H [A utomated message] The Eosinophils) system which ge nerated this result tra nsmitted reference range : <=4.0. The reference r evelyn was not used to int erpret this result as normal/abnormal . [facility]QrzcihoXDDNGDWEOG7002-81-48 06:50:00 Test Item Value Reference Range Interpretation Comments Segs (test code = Segs) 61.3 45.0-75.0 N [facility]XynmfpfFNBXILOZQY4828-75-74 06:50:00 Test Item Value Reference Range Interpretation Comments Lymphocytes (test code = Lymphocytes) 22.2 20.0-40.0 N [facility]manWcmrqbcMWSXGBNAPW7720-50-61 06:50:00 Test Item Value Reference Range Interpretation Comments Basophils (test code = 0.0 See_Comment N [Aut omated message] The Basophils) system which ge nerated this result tra nsmitted reference range : <=1.0. The reference r evelyn was not used to int erpret this result as normal/abnormal . [facility]XrxkafdASWKKJOWKT2500-99-80 06:50:00 Test Item Value Reference Range Interpretation Comments Monocytes # (test code 1.2 See_Comment H [Aut omated message] The = Monocytes #) system which generated this result tra nsmitted reference range : <=0.8. The reference r evelyn was not used to int erpret this result as normal/abnormal . [facility]manEsbfzyeUQXDGNSGNY9410-87-00 06:50:00 Test Item Value Reference Range Interpretation Comments Segs-Bands # (test code = Segs-Bands #) 7.3 1.5-8.1 N [facility]manVycqbhkFOKFXSODTZ9767-58-70 06:50:00 Test Item Value Reference Range Interpretation Comments Basophils # (test code 0.0 See_Comment N [Aut omated message] The = Basophils #) system which generated this result tra nsmitted reference range : <=0.2. The reference r evelyn was not used to int erpret this result as normal/abnormal . [facility]manKpefowuCPPEBSGKNG7768-09-36 06:50:00 Test Item Value Reference Range Interpretation Comments Eosinophils # (test code 0.7 See_Comment H [A utomated message] The = Eosinophils #) system whic h generated this result tra nsmitted reference range : <=0.5. The reference r evelyn was not used to int erpret this result as normal/abnormal . [facility]manLwfvdwcEXGDWQMXRT3871-52-39 06:50:00 Test Item Value Reference Range Interpretation Comments Lymphocytes # (test code = Lymphocytes 2.6 1.0-5.5 N #) [facility]manHkrfjqjRQWOPXCBHX1220-26-69 06:50:00 Test Item Value Reference Range Interpretation Comments Large Plt (test code = Slight A Large Plt) 52*ABN*(03/14/2011 01:50:00) ?? [facility]manFfcuflyLYIKOBCNBM4959-15-49 06:50:00 Test Item Value Reference Range Interpretation Comments [place] Cell (test code = Slight A Dian Cell) 51*ABN*(03/14/2011 01:50:00) ?? [facility]manTpenhmtRKZHFASNKA5201-70-74 06:50:00 Test Item Value Reference Range Interpretation Comments Anisocyte (test code = 1+ A Anisocyte) 49*ABN*(03/14/2011 01:50:00) ?? [facility]manZjidlrtMRCEAGWOEA6337-78-72 06:50:00 Test Item Value Reference Range Interpretation Comments Polychrom (test code = Slight 50(03/14/2011 N Polychrom) 01:50:00) ?? [facility]manFjwbadnKMFCSDBMGH4982-13-97 06:50:00 Test Item Value Reference Range Interpretation Comments Hgb (test code = Hgb) 13.3 12.0-16.0 N [facility]manPkehaxkRSHIWJYYLI8224-64-79 06:50:00 Test Item Value Reference Range Interpretation Comments WBC (test code = WBC) 11.8 3.7-10.4 H [facility]manImxrirsEJQTCWHHQB7919-25-27 06:50:00 Test Item Value Reference Range Interpretation Comments RBC (test code = RBC) 4.18 4.20-5.40 L [facility]manTmhbfpbXGDQFQDFIY9408-21-27 06:50:00 Test Item Value Reference Range Interpretation Comments MCV (test code = MCV) 90.6 81.0-99.0 N [facility]manLwqiwzxJGSCTDOYKF0052-67-50 06:50:00 Test Item Value Reference Range Interpretation Comments MCH (test code = MCH) 31.8 pg 27.0-31.0 H [facility]manCgxuszmVUZVALRYWJ7273-86-43 06:50:00 Test Item Value Reference Range Interpretation Comments Hct (test code = Hct) 37.9 36.0-48.0 N [facility]manVbdvydxOZMUYISCDK4863-65-57 06:50:00 Test Item Value Reference Range Interpretation Comments MPV (test code = MPV) 10.0 7.4-10.4 N [facility]manVarqkauWOLUOBYFGO5359-84-32 06:50:00 Test Item Value Reference Range Interpretation Comments RDW (test code = RDW) 13.5 11.5-14.5 N [facility]manCqpfbypXCORZYKPYP6305-47-64 06:50:00 Test Item Value Reference Range Interpretation Comments Platelet (test code = Platelet) 199.0 133-450 N [facility]manCekksjrRBSCPMJFNG8013-37-40 06:50:00 Test Item Value Reference Range Interpretation Comments MCHC (test code = MCHC) 35.1 32.0-36.0 N [facility] HospitalPhvwkrkMQUSIKLVP6257-57-84 06:50:00 Test Item Value Reference Range Interpretation Comments AST (test code = AST) 27.0 See_Comment N [Auto mated message] The system which ge nerated this result transmit porsche reference range : <=37. The reference range was not used to interpr et this result as alexia l/abnormal. [facility] HospitalAeyksviOCZBBXIFO3815-57-76 06:50:00 Test Item Value Reference Range Interpretation Comments Globulin (test code = Globulin) 3.2 2.0-4.0 N [facility] HospitalTpjcxlnJDLFHFRDU5699-05-84 06:50:00 Test Item Value Reference Range Interpretation Comments Albumin Lvl (test code = Albumin Lvl) 2.9 3.5-5.0 L [facility] HospitalRnseirxWVIZXEWNK6821-41-48 06:50:00 Test Item Value Reference Range Interpretation Comments ALT (test code = ALT) 32.0 See_Comment N [Auto mated message] The system which ge nerated this result transmit porsche reference range : <=65. The reference range was not used to interpr et this result as alexia l/abnormal. [facility] HospitalAxmcmwlDVALMVYCA3389-19-51 06:50:00 Test Item Value Reference Range Interpretation Comments Total Protein (test code = Total 6.1 6.4-8.4 L Protein) [facility] HospitalSnwlydmWAGLOVHUA9935-10-98 06:50:00 Test Item Value Reference Range Interpretation Comments A/G Ratio (test code = A/G Ratio) 0.9 1 0.7-1.6 N [facility] HospitalEqnedceKTTSBTNTA1280-39-13 06:50:00 Test Item Value Reference Range Interpretation Comments Bili Indirect (test 0.3 See_Comment N [Automa porsche message] The code = Bili Indirect) system which generated this result tra nsmitted reference range : <=1.0. The reference r evelyn was not used to int erpret this result as normal/abnormal . [facility] HospitalCxlpdieXSPSYGMPU6930-54-92 06:50:00 Test Item Value Reference Range Interpretation Comments Bili Total (test code = Bili Total) 0.4 0.2-1.3 N [facility] HospitalBoxkpmbYTGULACAD0035-32-92 06:50:00 Test Item Value Reference Range Interpretation Comments Bili Direct (test code 0.1 See_Comment N [Aut omated message] The = Bili Direct) system which generated this result tra nsmitted reference range : <=0.3. The reference r evelyn was not used to int erpret this result as alexia l/abnormal. [facility] HospitalXageqwoHLYOUUFCU2434-14-67 06:50:00 Test Item Value Reference Range Interpretation Comments Alk Phos (test code = Alk Phos) 103.0 39-136 N [facility] MJMRBJV5478-93-51 16:38:00 Test Item Value Reference Range Interpretation Comments Gluc POC Lifscn (test code = Gluc POC 197.0 65-110 H Lifscn) [facility] GLUCOSE ESNLLMM2069-68-70 16:38:00 Test Item Value Reference Range Interpretation Comments Comment1 (test code = Comment1) Notify RN/MD [facility] GLUCOSE ICKBFCR6157-81-28 10:32:00 Test Item Value Reference Range Interpretation Comments Comment2 (test code = Comment2) Sliding Scale [facility] GLUCOSE OTMYQIH0440-97-19 10:32:00 Test Item Value Reference Range Interpretation Comments Gluc POC Lifscn (test code = Gluc POC 112.0 65-110 H Lifscn) [facility] GLUCOSE KOFLZZB8617-53-58 10:32:00 Test Item Value Reference Range Interpretation Comments Comment1 (test code = Comment1) Notify RN/ [facility] GLUCOSE AFDTZBJ2759-30-84 02:38:00 Test Item Value Reference Range Interpretation Comments Comment2 (test code = Comment2) Sliding Scale [facility] GLUCOSE SITYQQT7759-91-65 02:38:00 Test Item Value Reference Range Interpretation Comments Comment1 (test code = Comment1) Notify RN/ [facility] GLUCOSE ZUBHVFQ1699-28-35 02:38:00 Test Item Value Reference Range Interpretation Comments Gluc POC Lifscn (test code = Gluc POC 180.0 65-110 H Lifscn) [facility] GLUCOSE QJYIOBG8688-07-92 11:33:00 Test Item Value Reference Range Interpretation Comments Comment2 (test code = Comment2) Sliding Scale [facility]aleScppbtsWSJLONXDP4108-12-28 07:36:00 Test Item Value Reference Range Interpretation Comments eGFR (test code = eGFR) no gt [facility]aleIcwlvmkFFXZRKEFQ0768-48-54 07:36:00 Test Item Value Reference Range Interpretation Comments Chloride Lvl (test code = Chloride Lvl) 107.0 95-109 N [facility]aleLacbhqtZQDNKHKYY1179-36-37 07:36:00 Test Item Value Reference Range Interpretation Comments Sodium Lvl (test code = Sodium Lvl) 144.0 135-145 N [facility] HospitalJiurtueJFQKHIMFY9714-09-17 07:36:00 Test Item Value Reference Range Interpretation Comments Potassium Lvl (test code = Potassium 3.8 3.5-5.1 N Lvl) [facility] HospitalHfbgonsDLVGFZRII9923-26-04 07:36:00 Test Item Value Reference Range Interpretation Comments Calcium Lvl (test code = Calcium Lvl) 8.4 8.5-10.5 L [facility] HospitalWlsjsaxUWHTNUNSX0438-29-71 07:36:00 Test Item Value Reference Range Interpretation Comments AGAP (test code = AGAP) 15.8 10.0-20.0 N [facility] HospitalFbfsgxqKGUCRREBV4083-24-83 07:36:00 Test Item Value Reference Range Interpretation Comments CO2 (test code = CO2) 25.0 24-32 N [facility] HospitalGejxdepTNHNHTLAD9054-30-20 07:36:00 Test Item Value Reference Range Interpretation Comments BUN (test code = BUN) 16.0 7-22 N [facility] HospitalBivpykgBFURKXZZS5925-91-93 07:36:00 Test Item Value Reference Range Interpretation Comments Creatinine Lvl (test code = Creatinine 0.9 0.5-1.4 N Lvl) [facility] HospitalQjsaaruHHSASTAIW7185-43-65 07:36:00 Test Item Value Reference Range Interpretation Comments Glucose Lvl (test code = Glucose Lvl) 77.0 [facility]UcjsfwfLUZOVTIJON9214-34-68 07:36:00 Test Item Value Reference Range Interpretation Comments Segs (test code = Segs) 45.6 45.0-75.0 N [facility]manEajocjvRLXLSHNCFM6639-42-80 07:36:00 Test Item Value Reference Range Interpretation Comments Monocytes (test code = Monocytes) 10.4 2.0-12.0 N [facility]manBrkjfesOHXFXSFDWQ0114-06-69 07:36:00 Test Item Value Reference Range Interpretation Comments Eosinophils (test code = 3.5 See_Comment N [A utomated message] The Eosinophils) system which ge nerated this result tra nsmitted reference range : <=4.0. The reference r evelyn was not used to int erpret this result as normal/abnormal . [facility]OcqgaemCXTFODTYSC0220-97-20 07:36:00 Test Item Value Reference Range Interpretation Comments Lymphocytes (test code = Lymphocytes) 38.5 20.0-40.0 N [facility]manGsgmjkkYKZTMAFQSO9533-56-61 07:36:00 Test Item Value Reference Range Interpretation Comments Eosinophils # (test code 0.4 See_Comment N [A utomated message] The = Eosinophils #) system whic h generated this result tra nsmitted reference range : <=0.5. The reference r evelyn was not used to int erpret this result as normal/abnormal . [facility]QpepvclSFZCVZCYKF4184-01-26 07:36:00 Test Item Value Reference Range Interpretation Comments Basophils # (test code 0.2 See_Comment N [Aut omated message] The = Basophils #) system which generated this result tra nsmitted reference range : <=0.2. The reference r evelyn was not used to int erpret this result as normal/abnormal . [facility]manCtjrwqeTDJRZCHHOJ7551-13-35 07:36:00 Test Item Value Reference Range Interpretation Comments Basophils (test code = 2.0 See_Comment H [Aut omated message] The Basophils) system which ge nerated this result tra nsmitted reference range : <=1.0. The reference r evelyn was not used to int erpret this result as normal/abnormal . [facility]manPsjelscZDOMKOACQN4939-95-35 07:36:00 Test Item Value Reference Range Interpretation Comments Segs-Bands # (test code = Segs-Bands #) 5.8 1.5-8.1 N [facility]OqlzzpeYGZXDHKMAT6084-68-87 07:36:00 Test Item Value Reference Range Interpretation Comments Lymphocytes # (test code = Lymphocytes 4.9 1.0-5.5 N #) [facility]manGbjyafdGDIYTKWZZH2207-68-97 07:36:00 Test Item Value Reference Range Interpretation Comments Monocytes # (test code 1.3 See_Comment H [Aut omated message] The = Monocytes #) system which generated this result tra nsmitted reference range : <=0.8. The reference r evelyn was not used to int erpret this result as normal/abnormal . [facility]QpnjbfnFSKFAPXQYG4010-98-52 07:36:00 Test Item Value Reference Range Interpretation Comments Hgb (test code = Hgb) 9.9 12.0-16.0 L [facility]XbbplxfXVHEYIJUPF6892-29-10 07:36:00 Test Item Value Reference Range Interpretation Comments MCV (test code = MCV) 92.6 81.0-99.0 N [facility]manOdyevsoSEDGEBFGGU3134-79-97 07:36:00 Test Item Value Reference Range Interpretation Comments RBC (test code = RBC) 3.08 4.20-5.40 L [facility]manGsxjhzaGMDOHBEPVJ1525-73-49 07:36:00 Test Item Value Reference Range Interpretation Comments WBC (test code = WBC) 12.7 3.7-10.4 H [facility]manPdzdvlvRLQEZFKLAV8364-12-06 07:36:00 Test Item Value Reference Range Interpretation Comments MCH (test code = MCH) 32.0 pg 27.0-31.0 H [facility]manPwojoevLVVZFPTGOZ9352-30-27 07:36:00 Test Item Value Reference Range Interpretation Comments Hct (test code = Hct) 28.5 36.0-48.0 L [facility]manJfbaadxVNQKGMGEZK0676-95-66 07:36:00 Test Item Value Reference Range Interpretation Comments MCHC (test code = MCHC) 34.6 32.0-36.0 N [facility]MjvfxmjOGIQMOPBIZ8855-02-00 07:36:00 Test Item Value Reference Range Interpretation Comments Platelet (test code = Platelet) 221.0 133-450 N [facility]manBzhhcupMEDGIUECGK1263-78-57 07:36:00 Test Item Value Reference Range Interpretation Comments RDW (test code = RDW) 16.5 11.5-14.5 H [facility]manLvdxdfmXVBOJYNYSO7987-75-69 07:36:00 Test Item Value Reference Range Interpretation Comments MPV (test code = MPV) 9.1 7.4-10.4 N [facility]manSdtktwbINYWDPXPVO7192-60-00 10:21:00 Test Item Value Reference Range Interpretation Comments Platelet (test code = Platelet) 270.0 133-450 N [facility]manAejtgeuMIPSURDBRD0653-79-98 10:21:00 Test Item Value Reference Range Interpretation Comments RDW (test code = RDW) 16.4 11.5-14.5 H [facility]manLqrqkvtUKJEFNAWKD2646-56-01 10:21:00 Test Item Value Reference Range Interpretation Comments MCHC (test code = MCHC) 33.6 32.0-36.0 N [facility]manAywsovoGHLYZROQXO5359-47-45 10:21:00 Test Item Value Reference Range Interpretation Comments MCH (test code = MCH) 31.8 pg 27.0-31.0 H [facility]manQgwyqnjSGKREWTUDG8461-57-41 10:21:00 Test Item Value Reference Range Interpretation Comments WBC (test code = WBC) 12.4 3.7-10.4 H [facility]manIxoflocQXTWNQZHUV5543-50-45 10:21:00 Test Item Value Reference Range Interpretation Comments MPV (test code = MPV) 9.4 7.4-10.4 N [facility]manAfzwikvYEQAJGPKZU7156-90-89 10:21:00 Test Item Value Reference Range Interpretation Comments MCV (test code = MCV) 94.6 81.0-99.0 N [facility]manDzynexbGZVTKBVEXF5243-99-56 10:21:00 Test Item Value Reference Range Interpretation Comments Hct (test code = Hct) 30.8 36.0-48.0 L [facility]manTzjxebaRFVRSPFHNZ3720-97-28 10:21:00 Test Item Value Reference Range Interpretation Comments Hgb (test code = Hgb) 10.4 12.0-16.0 L [facility]manBzqnnavYPGQQJBQHO9691-87-17 10:21:00 Test Item Value Reference Range Interpretation Comments RBC (test code = RBC) 3.25 4.20-5.40 L [facility]manEmqeclfSAWDJRBHKY1144-98-59 10:03:00 Test Item Value Reference Range Interpretation Comments RDW (test code = RDW) 16.0 11.5-14.5 H [facility]manYsbjyeaHUHGJPKOPT7789-57-14 10:03:00 Test Item Value Reference Range Interpretation Comments MPV (test code = MPV) 9.1 7.4-10.4 N [facility]manCjdrhnzYHTLHSYMQL7585-14-85 10:03:00 Test Item Value Reference Range Interpretation Comments Platelet (test code = Platelet) 283.0 133-450 N [facility]manTeoannlPOASJVWHOG6429-75-42 10:03:00 Test Item Value Reference Range Interpretation Comments RBC (test code = RBC) 3.23 4.20-5.40 L [facility]manAfwrliuFSJMOZIQLJ3762-22-76 10:03:00 Test Item Value Reference Range Interpretation Comments MCV (test code = MCV) 94.5 81.0-99.0 N [facility]manXsbxouuWRXSWYSIEJ3096-61-08 10:03:00 Test Item Value Reference Range Interpretation Comments Hct (test code = Hct) 30.5 36.0-48.0 L [facility]manGgrhsewOMXRGARAGJ0662-71-79 10:03:00 Test Item Value Reference Range Interpretation Comments Hgb (test code = Hgb) 10.3 12.0-16.0 L [facility]manWvixybsWOFCJRJFLT2361-21-71 10:03:00 Test Item Value Reference Range Interpretation Comments MCHC (test code = MCHC) 33.6 32.0-36.0 N [facility]manGovhnvyAHTGHGYJBT5524-69-40 10:03:00 Test Item Value Reference Range Interpretation Comments WBC (test code = WBC) 12.7 3.7-10.4 H [facility]manNfuwzizXJZVPMWRSE1655-80-16 10:03:00 Test Item Value Reference Range Interpretation Comments MCH (test code = MCH) 31.8 pg 27.0-31.0 [facility]qfCKGJQMTPDH5616-[facility]-34 20:38:00 Test Item Value Reference Range Interpretation Comments UA Urobilinogen (test code *NA*(03/01/2011 0.1-1.0 = UA Urobilinogen) 15:38:00) ?? [facility] HospitalCjsznfcCFJCONJJNJ6200-07-30 20:38:00 Test Item Value Reference Range Interpretation Comments UA Turbidity (test code = Clear (03/01/2011 N UA Turbidity) 15:38:00) ?? [facility] HospitalGurqntvLJSBURPWEB5724-33-00 20:38:00 Test Item Value Reference Range Interpretation Comments UA Spec Grav (test code = UA Spec 1.009 1 N Grav) [facility] HospitalItbpkbnJBZOJTSXJS5315-72-85 20:38:00 Test Item Value Reference Range Interpretation Comments UA Color (test code = Yellow *NA*(03/01/2011 UA Color) 15:38:00) ?? [facility] HospitalZfvbkcjRBIOOHSUFU6246-61-28 20:38:00 Test Item Value Reference Range Interpretation Comments UA pH (test code = UA pH) 5.5 1 5.0-8.0 N [facility] HospitalEwevadzNQBGLOUFDI9958-24-24 20:38:00 Test Item Value Reference Range Interpretation Comments UA Ketones (test code Negative mg/dL = UA Ketones) *NA*(03/01/2011 15:38:00) ?? [facility] HospitalXqxlaomAWUBRENRHT9254-14-98 20:38:00 Test Item Value Reference Range Interpretation Comments UA Glucose (test code Negative mg/dL = UA Glucose) *NA*(03/01/2011 15:38:00) ?? [facility] HospitalHuidwwuNUEKMWRMPT3209-65-98 20:38:00 Test Item Value Reference Range Interpretation Comments UA Bili (test code = Negative *NA*(03/01/2011 UA Bili) 15:38:00) ?? [facility] HospitalKkitqqyKLDPGBWJOF4356-86-94 20:38:00 Test Item Value Reference Range Interpretation Comments UA Blood (test code = Negative (03/01/2011 N UA Blood) 15:38:00) ?? [facility] HospitalBikrrndJOKLBANQXD4838-40-61 20:38:00 Test Item Value Reference Range Interpretation Comments UA WBC (test code = <1.0 See_Comment N [Automa porsche message] The UA WBC) system which ge nerated this result transmit porsche reference range : <=5. The reference range was not used to interpr et this result as alexia l/abnormal. [facility] HospitalHdrcqucDWCJWPWKOU2115-47-19 20:38:00 Test Item Value Reference Range Interpretation Comments UA Nitrite (test code Negative (03/01/2011 N = UA Nitrite) 15:38:00) ?? [facility] HospitalQyydjrcKCPCCGUBKO7073-50-82 20:38:00 Test Item Value Reference Range Interpretation Comments UA Leuk Est (test Negative (03/01/2011 N code = UA Leuk Est) 15:38:00) ?? [facility] HospitalOaaqqevJAMXERIACR5633-20-59 20:38:00 Test Item Value Reference Range Interpretation Comments UA Mucus (test code = Few /LPF UA Mucus) *NA*(03/01/2011 15:38:00) ?? [facility] HospitalZivqxblDTJGGIZQKQ5327-51-54 20:38:00 Test Item Value Reference Range Interpretation Comments UA Sq Epi (test code Moderate /LPF A = UA Sq Epi) *ABN*(03/01/2011 15:38:00) ?? [facility] HospitalZrfdaelPMRSBYRMVD9458-66-58 20:38:00 Test Item Value Reference Range Interpretation Comments UA Hyal Cast (test 1.0 See_Comment N [Automat ed message] The code = UA Hyal Cast) system which generated this result transmit porsche reference range : <=2. The reference range was not used to interpr et this result as alexia l/abnormal. [facility]JfggwkiOJQJFTFJCJ0749-75-51 20:38:00 Test Item Value Reference Range Interpretation Comments UA Protein (test code = 10 mg/dL A UA Protein) *ABN*(03/01/2011 15:38:00) ?? [facility]wJrljfzfeteor2805-07-45 20:38:00 Test Item Value Reference Range Interpretation Comments Culture: Urine (test code = Culture: Urine) [facility]GtwczqrDIBMOYLFAG7537-88-89 08:19:00 Test Item Value Reference Range Interpretation Comments Lymphocytes # (test code = Lymphocytes 5.7 1.0-5.5 H #) [facility]manGyeikftNVVCIDNOAL4809-16-05 08:19:00 Test Item Value Reference Range Interpretation Comments Segs-Bands # (test code = Segs-Bands #) 4.8 1.5-8.1 N [facility]manQzwvnccEOEEPXGIWS0615-38-20 08:19:00 Test Item Value Reference Range Interpretation Comments Basophils (test code = 1.0 See_Comment N [Aut omated message] The Basophils) system which ge nerated this result tra nsmitted reference range : <=1.0. The reference r evelyn was not used to int erpret this result as normal/abnormal . [facility]manHingfcfZAKEPTQCQR0711-70-49 08:19:00 Test Item Value Reference Range Interpretation Comments Monocytes (test code = Monocytes) 8.9 2.0-12.0 N [facility]manIfuyuerKIMQGQNQVP0355-15-05 08:19:00 Test Item Value Reference Range Interpretation Comments Eosinophils (test code = 2.8 See_Comment N [A utomated message] The Eosinophils) system which ge nerated this result tra nsmitted reference range : <=4.0. The reference r evelyn was not used to int erpret this result as normal/abnormal . [facility]manLethrecHRURXNKLRA1914-62-88 08:19:00 Test Item Value Reference Range Interpretation Comments Lymphocytes (test code = Lymphocytes) 47.3 20.0-40.0 H [facility]manRsjyqpqQLFUYZIDVY2287-10-65 08:19:00 Test Item Value Reference Range Interpretation Comments Segs (test code = Segs) 40.0 45.0-75.0 L [facility]manZatyrimJSXGNDGIEZ6786-75-73 08:19:00 Test Item Value Reference Range Interpretation Comments Basophils # (test code 0.1 See_Comment N [Aut omated message] The = Basophils #) system which generated this result tra nsmitted reference range : <=0.2. The reference r evelyn was not used to int erpret this result as normal/abnormal . [facility]manKjkmitwAQPPBBPBSU3980-95-03 08:19:00 Test Item Value Reference Range Interpretation Comments Monocytes # (test code 1.1 See_Comment H [Aut omated message] The = Monocytes #) system which generated this result tra nsmitted reference range : <=0.8. The reference r evelyn was not used to int erpret this result as normal/abnormal . [facility]manWhnkoarVIJDLGNGSI3711-12-93 08:19:00 Test Item Value Reference Range Interpretation Comments Eosinophils # (test code 0.3 See_Comment N [A utomated message] The = Eosinophils #) system whic h generated this result tra nsmitted reference range : <=0.5. The reference r evelyn was not used to int erpret this result as normal/abnormal . [facility] HospitalRtxbjeoYFITDAFKV7266-01-84 08:43:00 Test Item Value Reference Range Interpretation Comments Globulin (test code = Globulin) 2.8 2.0-4.0 N [facility] HospitalHelfwuqBMCZINHMG2813-41-70 08:43:00 Test Item Value Reference Range Interpretation Comments B/C Ratio (test code = B/C Ratio) 14.0 1 6-25 N [facility] HospitalKqvmwaaADJXOCSKB3282-65-37 08:43:00 Test Item Value Reference Range Interpretation Comments AGAP (test code = AGAP) 13.8 10.0-20.0 N [facility] HospitalPiiuohwVVZPITWKF9068-33-50 08:43:00 Test Item Value Reference Range Interpretation Comments A/G Ratio (test code = A/G Ratio) 0.8 1 0.7-1.6 N [facility] HospitalZovvwnuHFIOAHXYM1089-46-87 08:43:00 Test Item Value Reference Range Interpretation Comments Total Protein (test code = Total 5.0 6.4-8.4 L Protein) [facility] HospitalLynkkatYIMIVRRVK4449-70-23 08:43:00 Test Item Value Reference Range Interpretation Comments Calcium Lvl (test code = Calcium Lvl) 8.4 8.5-10.5 L [facility] HospitalFihdoisGENTEUIHV9232-18-57 08:43:00 Test Item Value Reference Range Interpretation Comments ALT (test code = ALT) 24.0 See_Comment N [Auto mated message] The system which ge nerated this result transmit porsche reference range : <=65. The reference range was not used to interpr et this result as alexia l/abnormal. [facility]YpuaovxUXNVQVFBT5998-78-16 08:43:00 Test Item Value Reference Range Interpretation Comments Albumin Lvl (test code = Albumin Lvl) 2.2 3.5-5.0 L [facility]aleQbwgwduFHKOKRWCT7644-55-23 08:43:00 Test Item Value Reference Range Interpretation Comments Bili Total (test code = Bili Total) 0.3 0.2-1.3 N [facility]aleIrpnkgxWRUDTJGRA0305-00-61 08:43:00 Test Item Value Reference Range Interpretation Comments AST (test code = AST) 21.0 See_Comment N [Auto mated message] The system which ge nerated this result transmit porsche reference range : <=37. The reference range was not used to interpr et this result as alexia l/abnormal. [facility]aleJnfkvkjAHZBHCKKP8958-55-55 08:43:00 Test Item Value Reference Range Interpretation Comments Alk Phos (test code = Alk Phos) 98.0 39-136 N [facility]aleLkhhngzKODQUMBNQ5645-48-94 08:43:00 Test Item Value Reference Range Interpretation Comments CO2 (test code = CO2) 28.0 24-32 N [facility] SunnyvaleLinkaefRSAXMKDPG8400-64-76 08:43:00 Test Item Value Reference Range Interpretation Comments BUN (test code = BUN) 10.0 7-22 N [facility]aleDahekvaKZCLLLUHB7235-86-18 08:43:00 Test Item Value Reference Range Interpretation Comments Potassium Lvl (test code = Potassium 3.8 3.5-5.1 N Lvl) [facility]aleAkamwclOXMNOVALC8641-29-99 08:43:00 Test Item Value Reference Range Interpretation Comments Sodium Lvl (test code = Sodium Lvl) 143.0 135-145 N [facility]aleEvytjusSCVMAGWAT7726-43-98 08:43:00 Test Item Value Reference Range Interpretation Comments Creatinine Lvl (test code = Creatinine 0.7 0.5-1.4 N Lvl) [facility] HospitalKugjbnwKMUXLAAHL9302-98-73 08:43:00 Test Item Value Reference Range Interpretation Comments Glucose Lvl (test code = Glucose Lvl) 119.0 [facility] HospitalDzymvyyAKAAVMJVM8727-73-36 08:43:00 Test Item Value Reference Range Interpretation Comments Chloride Lvl (test code = Chloride Lvl) 105.0 95-109 N [facility]GprancrLDRQIVILVS1207-13-75 08:43:00 Test Item Value Reference Range Interpretation Comments Monocytes # (test code 0.9 See_Comment H [Aut omated message] The = Monocytes #) system which generated this result tra nsmitted reference range : <=0.8. The reference r evelyn was not used to int erpret this result as normal/abnormal . [facility]KlmimxqJBEUZFFVKJ6539-78-47 08:43:00 Test Item Value Reference Range Interpretation Comments Eosinophils # (test code 0.3 See_Comment N [A utomated message] The = Eosinophils #) system whic h generated this result tra nsmitted reference range : <=0.5. The reference r evelyn was not used to int erpret this result as normal/abnormal . [facility]manCtrwekxBLXBLQULTO3800-08-59 08:43:00 Test Item Value Reference Range Interpretation Comments Lymphocytes # (test code = Lymphocytes 3.3 1.0-5.5 N #) [facility]manChwyvmhMCHEXVXXRD9347-79-41 08:43:00 Test Item Value Reference Range Interpretation Comments Basophils # (test code 0.1 See_Comment N [Aut omated message] The = Basophils #) system which generated this result tra nsmitted reference range : <=0.2. The reference r evelyn was not used to int erpret this result as normal/abnormal . [facility]manPpldesrSGNMGMKREH3952-76-40 08:43:00 Test Item Value Reference Range Interpretation Comments Basophils (test code = 1.2 See_Comment H [Aut omated message] The Basophils) system which ge nerated this result tra nsmitted reference range : <=1.0. The reference r evelyn was not used to int erpret this result as normal/abnormal . [facility]manValoazuNIYHIIJDFE1737-40-03 08:43:00 Test Item Value Reference Range Interpretation Comments Segs-Bands # (test code = Segs-Bands #) 6.0 1.5-8.1 N [facility]manChjdzfkUWYVYLSAGJ9515-99-53 08:43:00 Test Item Value Reference Range Interpretation Comments Monocytes (test code = Monocytes) 8.3 2.0-12.0 N [facility]YgovwqxBJUSPJLJQB2222-71-84 08:43:00 Test Item Value Reference Range Interpretation Comments Eosinophils (test code = 3.1 See_Comment N [A utomated message] The Eosinophils) system which ge nerated this result tra nsmitted reference range : <=4.0. The reference r evelyn was not used to int erpret this result as normal/abnormal . [facility]manNzljfemZAJWYHSXEY5167-73-46 08:43:00 Test Item Value Reference Range Interpretation Comments Segs (test code = Segs) 56.6 45.0-75.0 N [facility]manNwqdanxNIWKWWVZZD7959-36-82 08:43:00 Test Item Value Reference Range Interpretation Comments Lymphocytes (test code = Lymphocytes) 30.8 20.0-40.0 N [facility] GLUCOSE LPEJWIN4520-83-89 22:17:00 Test Item Value Reference Range Interpretation Comments Gluc POC Lifscn (test code = Gluc POC 207.0 65-110 H Lifscn) [facility] GLUCOSE NZKWVQA3105-36-88 22:17:00 Test Item Value Reference Range Interpretation Comments Comment1 (test code = Comment1) Notify RN/MD [facility] GLUCOSE APDNEPL4273-19-33 18:30:00 Test Item Value Reference Range Interpretation Comments Comment1 (test code = Comment1) Notify RN/MD [facility] GLUCOSE EIENPJO4791-20-31 18:30:00 Test Item Value Reference Range Interpretation Comments Gluc POC Lifscn (test code = Gluc POC 155.0 65-110 H Lifscn) [facility] GLUCOSE LDKUQTZ7644-55-93 11:15:00 Test Item Value Reference Range Interpretation Comments Gluc POC Lifscn (test code = Gluc POC 140.0 65-110 H Lifscn) [facility]HVIVQMGSZ5930-[facility]-42 06:52:00 Test Item Value Reference Range Interpretation Comments AGAP (test code = AGAP) 15.6 10.0-20.0 N [facility] HospitalUvedglqOERWWDNQN4144-92-37 06:52:00 Test Item Value Reference Range Interpretation Comments CO2 (test code = CO2) 25.0 24-32 N [facility] HospitalEfgrtrkMUZMEUMNR5176-22-85 06:52:00 Test Item Value Reference Range Interpretation Comments Calcium Lvl (test code = Calcium Lvl) 7.9 8.5-10.5 L [facility] HospitalZozhqzjKSJEFRWTU2703-94-23 06:52:00 Test Item Value Reference Range Interpretation Comments Sodium Lvl (test code = Sodium Lvl) 142.0 135-145 N [facility] HospitalBnqmzcqDAJJALDRW8937-90-79 06:52:00 Test Item Value Reference Range Interpretation Comments Potassium Lvl (test code = Potassium 3.6 3.5-5.1 N Lvl) [facility] HospitalKsmiwjoCRQJWUMAN9944-11-63 06:52:00 Test Item Value Reference Range Interpretation Comments Creatinine Lvl (test code = Creatinine 0.5 0.5-1.4 N Lvl) [facility] HospitalDrrbkmlADLPTKJPP9280-34-95 06:52:00 Test Item Value Reference Range Interpretation Comments Chloride Lvl (test code = Chloride Lvl) 105.0 95-109 N [facility] HospitalTyjrhktEMBMAKGBL8943-75-04 06:52:00 Test Item Value Reference Range Interpretation Comments BUN (test code = BUN) 9.0 7-22 N [facility] HospitalStzhqnmNRIGHKAJB0909-11-70 06:52:00 Test Item Value Reference Range Interpretation Comments Glucose Lvl (test code = Glucose Lvl) 120.0 [facility]manTbesmsyUAKOMTNEYH3204-26-44 06:52:00 Test Item Value Reference Range Interpretation Comments Hgb (test code = Hgb) 10.5 12.0-16.0 L [facility]manTwyzgbrOHAPIWKHSS5107-24-95 06:52:00 Test Item Value Reference Range Interpretation Comments Hct (test code = Hct) 31.2 36.0-48.0 L [facility] GLUCOSE IINELDK1518-11-68 02:30:00 Test Item Value Reference Range Interpretation Comments Comment1 (test code = Comment1) Valeria RN/ [facility] HospitalStklncsMDGJSZKZP8986-63-77 08:43:00 Test Item Value Reference Range Interpretation Comments Magnesium Lvl (test code = Magnesium 1.9 1.8-2.4 N Lvl) [facility] HospitalYgvhouwJTOUJTVDO5863-92-48 08:43:00 Test Item Value Reference Range Interpretation Comments Calcium Lvl (test code = Calcium Lvl) 7.9 8.5-10.5 L [facility] HospitalPxbldcoUFPAKTOIV3290-57-71 08:43:00 Test Item Value Reference Range Interpretation Comments Chloride Lvl (test code = Chloride Lvl) 106.0 95-109 N [facility] HospitalHornsohTVRXIBRBC8394-99-97 08:43:00 Test Item Value Reference Range Interpretation Comments CO2 (test code = CO2) 24.0 24-32 N [facility] HospitalRqjespuVNGDTWIKO9226-91-68 08:43:00 Test Item Value Reference Range Interpretation Comments Sodium Lvl (test code = Sodium Lvl) 142.0 135-145 N [facility] HospitalNemvlqcFNSLTNAYI7050-05-02 08:43:00 Test Item Value Reference Range Interpretation Comments Creatinine Lvl (test code = Creatinine 0.6 0.5-1.4 N Lvl) [facility] HospitalGebyheiNJVGFPHXS6724-78-17 08:43:00 Test Item Value Reference Range Interpretation Comments BUN (test code = BUN) 12.0 7-22 N [facility] HospitalKfgfdocVGJTFQQVP9703-73-49 08:43:00 Test Item Value Reference Range Interpretation Comments Glucose Lvl (test code = Glucose Lvl) 89.0 [facility] HospitalBfgiwlaIUYCRVQOS7170-66-26 08:43:00 Test Item Value Reference Range Interpretation Comments Potassium Lvl (test code = Potassium 3.7 3.5-5.1 N Lvl) [facility] HospitalXvndmjpZJDXJZXRJ7411-68-24 08:43:00 Test Item Value Reference Range Interpretation Comments AGAP (test code = AGAP) 15.7 10.0-20.0 N [facility]manDlkyzjqKBKRRUCBWR2533-22-07 08:43:00 Test Item Value Reference Range Interpretation Comments Hct (test code = Hct) 30.7 36.0-48.0 L [facility]manWspqnphLEHVIDKQLF5975-98-73 08:43:00 Test Item Value Reference Range Interpretation Comments Hgb (test code = Hgb) 10.3 12.0-16.0 L [facility]manRunwdmuOFIWKNBOPJ3487-57-81 08:43:00 Test Item Value Reference Range Interpretation Comments Sed Rate (test code = 105.0 See_Comment H [Auto mated message] The Sed Rate) system which ge nerated this result transmit porsche reference range : <=20. The reference range was not used to interpr et this result as alexia l/abnormal. [facility] HospitalMemdabgTKSAUURQZ4173-75-62 07:22:00 Test Item Value Reference Range Interpretation Comments Magnesium Lvl (test code = Magnesium 1.7 1.8-2.4 L Lvl) [facility] HospitalQghrbelGYOWVYJJJ3766-83-35 07:22:00 Test Item Value Reference Range Interpretation Comments Ca Norm mgdL (test code = Ca Norm mgdL) 4.64 4.65-5.20 L [facility] HospitalHyetuliKJXLSTEVS1605-69-81 07:22:00 Test Item Value Reference Range Interpretation Comments Ca Ion (test code = Ca Ion) 1.1 1.16-1.30 L [facility] HospitalCtgwnekRUPTLTQFL3701-07-05 07:22:00 Test Item Value Reference Range Interpretation Comments Ca Norm (test code = Ca Norm) 1.16 1.16-1.30 N [facility] HospitalVdxyozvDUJXQTFMN8859-60-88 07:22:00 Test Item Value Reference Range Interpretation Comments Ca Ion mgdL (test code = Ca Ion mgdL) 4.4 4.65-5.20 L [facility] HospitalWypagmmKKPSKZJCD4984-69-21 07:22:00 Test Item Value Reference Range Interpretation Comments AGAP (test code = AGAP) 16.9 10.0-20.0 N [facility] HospitalOcvncniRYIQGJKPE3467-35-78 07:22:00 Test Item Value Reference Range Interpretation Comments BUN (test code = BUN) 6.0 7-22 L [facility] HospitalMkzpdyxOFBOBOVGO0566-14-07 07:22:00 Test Item Value Reference Range Interpretation Comments Creatinine Lvl (test code = Creatinine 0.4 0.5-1.4 L Lvl) [facility] HospitalMyakcufLWBMAMXDA9537-79-11 07:22:00 Test Item Value Reference Range Interpretation Comments Glucose Lvl (test code = Glucose Lvl) 154.0 [facility] HospitalEgeiobrJZYXRFFGB8262-72-55 07:22:00 Test Item Value Reference Range Interpretation Comments Potassium Lvl (test code = Potassium 4.9 3.5-5.1 N Lvl) [facility] HospitalLaoxyxbXRZTVFFYG4585-23-57 07:22:00 Test Item Value Reference Range Interpretation Comments Sodium Lvl (test code = Sodium Lvl) 138.0 135-145 N [facility] HospitalEltjrgmYFNWGWHAW2775-37-63 07:22:00 Test Item Value Reference Range Interpretation Comments Calcium Lvl (test code = Calcium Lvl) 7.7 8.5-10.5 L [facility] HospitalMhsawokKWZMXALLI3095-27-64 07:22:00 Test Item Value Reference Range Interpretation Comments Chloride Lvl (test code = Chloride Lvl) 107.0 95-109 N [facility] HospitalDruxgqxWYUINOWRE0364-31-19 07:22:00 Test Item Value Reference Range Interpretation Comments CO2 (test code = CO2) 19.0 24-32 L [facility] HospitalIjdgnpeJUKTVEYQR1389-68-76 07:22:00 Test Item Value Reference Range Interpretation Comments Phosphorus (test code = Phosphorus) 3.7 2.5-4.5 N [facility]manKumzxupUAFOUWUBMG2360-67-75 07:22:00 Test Item Value Reference Range Interpretation Comments Eosinophils # (test code 0.6 See_Comment H [A utomated message] The = Eosinophils #) system whic h generated this result tra nsmitted reference range : <=0.5. The reference r evelyn was not used to int erpret this result as normal/abnormal . [facility]manZyicqxdHSBZWRBHFD5580-23-89 07:22:00 Test Item Value Reference Range Interpretation Comments Monocytes # (test code 0.9 See_Comment H [Aut omated message] The = Monocytes #) system which generated this result tra nsmitted reference range : <=0.8. The reference r evelyn was not used to int erpret this result as normal/abnormal . [facility]manOivhgksVXWJEESYBH9092-07-21 07:22:00 Test Item Value Reference Range Interpretation Comments Basophils # (test code 0.0 See_Comment N [Aut omated message] The = Basophils #) system which generated this result tra nsmitted reference range : <=0.2. The reference r evelyn was not used to int erpret this result as normal/abnormal . [facility]manXuosxhxPAMPOPGQQF5970-28-09 07:22:00 Test Item Value Reference Range Interpretation Comments Eosinophils (test code = 6.9 See_Comment H [A utomated message] The Eosinophils) system which ge nerated this result tra nsmitted reference range : <=4.0. The reference r evelyn was not used to int erpret this result as normal/abnormal . [facility]manWnwqvmlEAPJVEIMHN3403-63-12 07:22:00 Test Item Value Reference Range Interpretation Comments Monocytes (test code = Monocytes) 9.6 2.0-12.0 N [facility]manAqqtzezXGHVPDDNZL4516-26-33 07:22:00 Test Item Value Reference Range Interpretation Comments Segs-Bands # (test code = Segs-Bands #) 5.2 1.5-8.1 N [facility]manGjwcvliAHKZJSKOJY2848-25-50 07:22:00 Test Item Value Reference Range Interpretation Comments Basophils (test code = 0.3 See_Comment N [Aut omated message] The Basophils) system which ge nerated this result tra nsmitted reference range : <=1.0. The reference r evelyn was not used to int erpret this result as normal/abnormal . [facility]manTzsagncJBCQFUPBGS3552-08-29 07:22:00 Test Item Value Reference Range Interpretation Comments Lymphocytes # (test code = Lymphocytes 2.3 1.0-5.5 N #) [facility]manPrvzfzyNFBVNIYOCM7022-00-70 07:22:00 Test Item Value Reference Range Interpretation Comments Segs (test code = Segs) 57.5 45.0-75.0 N [facility]manMuijaboITACALSQZY0296-18-32 07:22:00 Test Item Value Reference Range Interpretation Comments Lymphocytes (test code = Lymphocytes) 25.7 20.0-40.0 N [facility]manArldhgmEWRONENVRD8510-80-03 07:22:00 Test Item Value Reference Range Interpretation Comments MCHC (test code = MCHC) 34.1 32.0-36.0 N [facility]manXznomtkTTQZQLUGCQ7622-56-53 07:22:00 Test Item Value Reference Range Interpretation Comments Platelet (test code = Platelet) 166.0 133-450 N [facility]manPnvaexcLOGQRZUFEN1035-95-07 07:22:00 Test Item Value Reference Range Interpretation Comments RDW (test code = RDW) 16.2 11.5-14.5 H [facility]manXyddensKSIXWIUCWW0182-78-98 07:22:00 Test Item Value Reference Range Interpretation Comments MPV (test code = MPV) 7.8 7.4-10.4 N [facility]manRaorxovBCZODVLCAP9316-88-78 07:22:00 Test Item Value Reference Range Interpretation Comments Hct (test code = Hct) 32.4 36.0-48.0 L [facility]manSizjbnqKPVKGGGZTR7753-50-91 07:22:00 Test Item Value Reference Range Interpretation Comments MCV (test code = MCV) 96.0 81.0-99.0 N [place] 231511-09-23 07:22:00 Test Item Value Reference Range Interpretation Comments MCH (test code = MCH) 32.7 pg 27.0-31.0 H [facility]manZuftbgqIIHNBCJFVF1062-42-96 07:22:00 Test Item Value Reference Range Interpretation Comments RBC (test code = RBC) 3.38 4.20-5.40 L [facility]manVdlfznlETJUFITHYM0564-47-60 07:22:00 Test Item Value Reference Range Interpretation Comments Hgb (test code = Hgb) 11.0 12.0-16.0 L [facility]manCaduqymUSAUHYMUAY7847-41-87 07:22:00 Test Item Value Reference Range Interpretation Comments WBC (test code = WBC) 9.0 3.7-10.4 N [facility] HospitalAhdczybMYQFXJMWJ7760-10-22 14:50:00 Test Item Value Reference Range Interpretation Comments Magnesium Lvl (test code = Magnesium 3.1 1.8-2.4 H Lvl) [facility] HospitalTyuetpvBFCPIPRPN7305-68-55 05:50:00 Test Item Value Reference Range Interpretation Comments Phosphorus (test code = Phosphorus) 3.4 2.5-4.5 N [facility] HospitalIonqnwmWYANLJAFE0382-86-43 05:50:00 Test Item Value Reference Range Interpretation Comments Ca Ion mgdL (test code = Ca Ion mgdL) 5.08 4.65-5.20 N [facility] HospitalThbczmcTXBBGDGKP7529-57-60 05:50:00 Test Item Value Reference Range Interpretation Comments Ca Norm (test code = Ca Norm) 1.28 1.16-1.30 N [facility] HospitalLzetxyxDHTKWDSYV2984-83-06 05:50:00 Test Item Value Reference Range Interpretation Comments Ca Ion (test code = Ca Ion) 1.27 1.16-1.30 N [facility] HospitalPtadzszQJISGXOQJ6738-16-85 05:50:00 Test Item Value Reference Range Interpretation Comments Ca Norm mgdL (test code = Ca Norm mgdL) 5.12 4.65-5.20 N [facility]manCoypmaoIINSWDMWTE1047-82-12 05:50:00 Test Item Value Reference Range Interpretation Comments MCV (test code = MCV) 95.8 81.0-99.0 N [facility]manHxbzeovVTUKCLKDMQ0095-06-32 05:50:00 Test Item Value Reference Range Interpretation Comments Platelet (test code = Platelet) 175.0 133-450 N [facility]manMphogokFPJNSUDIEG4951-24-82 05:50:00 Test Item Value Reference Range Interpretation Comments MPV (test code = MPV) 7.8 7.4-10.4 N [facility]manEaayaeaWWCFPJXLWA1115-78-37 05:50:00 Test Item Value Reference Range Interpretation Comments MCH (test code = MCH) 32.2 pg 27.0-31.0 H [facility]manVhomambYITLZZHCAM9083-14-84 05:50:00 Test Item Value Reference Range Interpretation Comments MCHC (test code = MCHC) 33.7 32.0-36.0 N [facility]manHwjxmjuSDEDAMSPBT9025-57-20 05:50:00 Test Item Value Reference Range Interpretation Comments RDW (test code = RDW) 16.5 11.5-14.5 H [facility]manZfosmpnJGLBPXGCYS5277-65-18 05:50:00 Test Item Value Reference Range Interpretation Comments RBC (test code = RBC) 3.19 4.20-5.40 L [facility]manLrnfmixSTAKUYAURA1268-59-06 05:50:00 Test Item Value Reference Range Interpretation Comments WBC (test code = WBC) 6.9 3.7-10.4 N [facility]manTczmpvdFRLTVTDILM3158-80-96 05:50:00 Test Item Value Reference Range Interpretation Comments Eosinophils # (test code 0.4 See_Comment N [A utomated message] The = Eosinophils #) system whic h generated this result tra nsmitted reference range : <=0.5. The reference r evelyn was not used to int erpret this result as normal/abnormal . [facility]manLzcbkvjHVNLDMAXAY7678-84-67 05:50:00 Test Item Value Reference Range Interpretation Comments Basophils # (test code 0.0 See_Comment N [Aut omated message] The = Basophils #) system which generated this result tra nsmitted reference range : <=0.2. The reference r evelyn was not used to int erpret this result as normal/abnormal . [facility]manLlhnoewRVPYQIJSHG6253-82-24 05:50:00 Test Item Value Reference Range Interpretation Comments Monocytes # (test code 0.6 See_Comment N [Aut omated message] The = Monocytes #) system which generated this result tra nsmitted reference range : <=0.8. The reference r evelyn was not used to int erpret this result as normal/abnormal . [facility]manKukffueFNLZCSTERN1019-31-98 05:50:00 Test Item Value Reference Range Interpretation Comments Segs (test code = Segs) 63.4 45.0-75.0 N [facility]manStervkhFPISCWKPLH0112-89-69 05:50:00 Test Item Value Reference Range Interpretation Comments Lymphocytes (test code = Lymphocytes) 20.5 20.0-40.0 N [facility]manXfsmmevVIBCPFATVF8696-32-80 05:50:00 Test Item Value Reference Range Interpretation Comments Monocytes (test code = Monocytes) 9.3 2.0-12.0 N [facility]manGruzdydRRIVFJBRIE8111-91-97 05:50:00 Test Item Value Reference Range Interpretation Comments Eosinophils (test code = 6.4 See_Comment H [A utomated message] The Eosinophils) system which ge nerated this result tra nsmitted reference range : <=4.0. The reference r evelyn was not used to int erpret this result as normal/abnormal . [facility]manHptiwmzRYCIZRTDYZ8829-10-73 05:50:00 Test Item Value Reference Range Interpretation Comments Basophils (test code = 0.4 See_Comment N [Aut omated message] The Basophils) system which ge nerated this result tra nsmitted reference range : <=1.0. The reference r evelyn was not used to int erpret this result as normal/abnormal . [facility]manUifolqhRDHGLZGDCC6465-95-35 05:50:00 Test Item Value Reference Range Interpretation Comments Segs-Bands # (test code = Segs-Bands #) 4.4 1.5-8.1 N [facility]manXjstqrbQMHXZQFEHK8502-86-50 05:50:00 Test Item Value Reference Range Interpretation Comments Lymphocytes # (test code = Lymphocytes 1.4 1.0-5.5 N #) [facility] HospitalYcxhwpkYPUKMMJUH1341-92-28 21:20:00 Test Item Value Reference Range Interpretation Comments Ca Norm (test code = Ca Norm) 1.02 1.16-1.30 L [facility] HospitalDuohfapRVPTTHCWZ8785-26-12 21:20:00 Test Item Value Reference Range Interpretation Comments Ca Norm mgdL (test code = Ca Norm mgdL) 4.08 4.65-5.20 L [facility] HospitalUwbwsknKGIJHFJHD0034-74-13 21:20:00 Test Item Value Reference Range Interpretation Comments Ca Ion mgdL (test code = Ca Ion mgdL) 4.12 4.65-5.20 L [facility] MckkwcsNUMWTPJCG2105-25-87 21:20:00 Test Item Value Reference Range Interpretation Comments Ca Ion (test code = Ca Ion) 1.03 1.16-1.30 L [facility]UzjrykdNCSUBEGGW5039-23-77 21:20:00 Test Item Value Reference Range Interpretation Comments AST (test code = AST) 66.0 See_Comment H [Auto mated message] The system which ge nerated this result transmit porsche reference range : <=37. The reference range was not used to interpr et this result as alexia l/abnormal. [facility]aleOmkmtvhIEXTEUWNB5981-23-00 21:20:00 Test Item Value Reference Range Interpretation Comments Bili Total (test code = Bili Total) 0.8 0.2-1.3 N [facility]aleLjgpkgpGXTVSKXBP8349-94-33 21:20:00 Test Item Value Reference Range Interpretation Comments Albumin Lvl (test code = Albumin Lvl) 2.3 3.5-5.0 L [facility]aleDmcaosoQVCYRGDLH0579-39-67 21:20:00 Test Item Value Reference Range Interpretation Comments Total Protein (test code = Total 4.8 6.4-8.4 L Protein) [facility]aleNagstehXJYJUGRVC5111-42-18 21:20:00 Test Item Value Reference Range Interpretation Comments ALT (test code = ALT) 67.0 See_Comment H [Auto mated message] The system which ge nerated this result transmit porsche reference range : <=65. The reference range was not used to interpr et this result as alexia l/abnormal. [facility]aleKrebygeXYXUQBTHA5231-54-74 21:20:00 Test Item Value Reference Range Interpretation Comments Globulin (test code = Globulin) 2.5 2.0-4.0 N [facility]aleAtdkuvmZRYAIPUOB9966-25-56 21:20:00 Test Item Value Reference Range Interpretation Comments A/G Ratio (test code = A/G Ratio) 0.9 1 0.7-1.6 N [facility]aleFaybmuxETKQZKUMM4187-81-05 21:20:00 Test Item Value Reference Range Interpretation Comments Alk Phos (test code = Alk Phos) 155.0 39-136 H [facility]aleVhexesrCPXKZSAWL2515-42-73 21:20:00 Test Item Value Reference Range Interpretation Comments B/C Ratio (test code = B/C Ratio) 20.0 1 6-25 N [facility]fsheojIOLHPXDJVY7532-30-96 21:20:00 Test Item Value Reference Range Interpretation Comments PTT (test code = PTT) 29.4 s 22.9-35.8 N [facility]LfrzpwrZMCOFXTOUN9572-68-21 21:20:00 Test Item Value Reference Range Interpretation Comments PT (test code = PT) 13.9 s 12.0-14.7 N [facility]XeucqiqZHBZNLBQGM1045-86-91 21:20:00 Test Item Value Reference Range Interpretation Comments INR (test code = INR) 1.07 1 0.85-1.17 N [facility]XcmqbnuEQSVJKWFRM6597-89-93 21:20:00 Test Item Value Reference Range Interpretation Comments RBC (test code = RBC) 3.4 4.20-5.40 L [facility]manWmupijlORKWVTNOKW3948-50-88 21:20:00 Test Item Value Reference Range Interpretation Comments MCH (test code = MCH) 32.2 pg 27.0-31.0 H [facility]EprgvsbLJIGGZQGIX6260-15-16 21:20:00 Test Item Value Reference Range Interpretation Comments MCV (test code = MCV) 95.7 81.0-99.0 N [facility]manNjslkczMLAVGLXSSL6789-39-47 21:20:00 Test Item Value Reference Range Interpretation Comments MCHC (test code = MCHC) 33.6 32.0-36.0 N [facility]manNambaznGWBEKUYPPE5111-00-37 21:20:00 Test Item Value Reference Range Interpretation Comments RDW (test code = RDW) 16.7 11.5-14.5 H [facility]manZfwamseVRYLRWYQSC0017-77-07 21:20:00 Test Item Value Reference Range Interpretation Comments MPV (test code = MPV) 7.8 7.4-10.4 N [facility]manWaykxgdJFJMLUASYW9634-90-90 21:20:00 Test Item Value Reference Range Interpretation Comments Platelet (test code = Platelet) 173.0 133-450 N [facility]manGgzjoinGJCTDTFOET7974-02-99 21:20:00 Test Item Value Reference Range Interpretation Comments WBC (test code = WBC) 7.4 3.7-10.4 N [facility]manKjkjihlTJWKBKKNTE0911-94-68 21:20:00 Test Item Value Reference Range Interpretation Comments Monocytes (test code = Monocytes) 8.7 2.0-12.0 N [facility]manJikuwfgDETDNVOYVR7341-21-22 21:20:00 Test Item Value Reference Range Interpretation Comments Lymphocytes (test code = Lymphocytes) 15.6 20.0-40.0 L [facility]manAxelejmAXHDVLUWOL6976-67-93 21:20:00 Test Item Value Reference Range Interpretation Comments Lymphocytes # (test code = Lymphocytes 1.1 1.0-5.5 N #) [facility]manTtmjxnlCJTSWERNIP0656-32-80 21:20:00 Test Item Value Reference Range Interpretation Comments Monocytes # (test code 0.6 See_Comment N [Aut omated message] The = Monocytes #) system which generated this result tra nsmitted reference range : <=0.8. The reference r evelyn was not used to int erpret this result as normal/abnormal . [facility]manDoqzhutETZFJVNWEN7194-26-51 21:20:00 Test Item Value Reference Range Interpretation Comments Eosinophils (test code = 5.3 See_Comment H [A utomated message] The Eosinophils) system which ge nerated this result tra nsmitted reference range : <=4.0. The reference r evelyn was not used to int erpret this result as normal/abnormal . [facility]manZuvjodpSUUFPUGTDP5600-84-44 21:20:00 Test Item Value Reference Range Interpretation Comments Segs-Bands # (test code = Segs-Bands #) 5.1 1.5-8.1 N [facility]manKcxagduTICSEQINZF2871-24-30 21:20:00 Test Item Value Reference Range Interpretation Comments Basophils (test code = 0.6 See_Comment N [Aut omated message] The Basophils) system which ge nerated this result tra nsmitted reference range : <=1.0. The reference r evelyn was not used to int erpret this result as normal/abnormal . [facility]FcaksyiCQWBLXMOUH3406-73-16 21:20:00 Test Item Value Reference Range Interpretation Comments Segs (test code = Segs) 69.8 45.0-75.0 N [facility]manVrvdmowQNGXKMHPLP7793-83-37 21:20:00 Test Item Value Reference Range Interpretation Comments Eosinophils # (test code 0.4 See_Comment N [A utomated message] The = Eosinophils #) system whic h generated this result tra nsmitted reference range : <=0.5. The reference r evelyn was not used to int erpret this result as normal/abnormal . [facility]manDigynspWKKZZXWUFG6089-03-64 21:20:00 Test Item Value Reference Range Interpretation Comments Basophils # (test code 0.0 See_Comment N [Aut omated message] The = Basophils #) system which generated this result tra nsmitted reference range : <=0.2. The reference r evleyn was not used to int erpret this result as normal/abnormal . [facility] HospitalJjfbzoqQBTGRIYLH5321-84-52 21:00:00 Test Item Value Reference Range Interpretation Comments Lactic Acid Lvl (test code = Lactic 1.1 0.5-2.2 N Acid Lvl) [facility]RbyhquwJjqhikgtmnku2594-68-59 21:00:00 Test Item Value Reference Range Interpretation Comments Culture: Resistant Acinetobacter Screen (test code = Culture: Resistant Acinetobacter Screen) [facility] LakeFwladocQjavwpdgbfbu7582-51-82 21:00:00 Test Item Value Reference Range Interpretation Comments Culture: MRSA (test code = Culture: MRSA) [facility] LakeHtaqsjxNswzuslsjvfq1799-48-22 18:28:00 Test Item Value Reference Range Interpretation Comments Culture: Anaerobic (test code = Culture: Anaerobic) [facility] LakeTdrxmmqFofosrjmproe9280-10-07 18:28:00 Test Item Value Reference Range Interpretation Comments Culture: Aspirate/Body Fluid/Tissue (test code = Culture: Aspirate/Body Fluid/Tissue) [facility] HospitalRnkfejbRHGDVMSHI3176-05-87 17:32:00 Test Item Value Reference Range Interpretation Comments POC A Glu (test code = POC A Glu) 109.0 65-110 N [facility] HospitalBmeoyrcRESZHJPGY6886-32-58 17:32:00 Test Item Value Reference Range Interpretation Comments POC A LA (test code = POC A LA) 0.6 0.5-2.2 N [facility] HospitalEbdujcmANKFHYPIS8402-79-53 17:32:00 Test Item Value Reference Range Interpretation Comments POC A Ca Ion (test code = POC A Ca Ion) 1.08 1.16-1.30 L [facility] HospitalLgrfartSEVBVWCJU9229-42-89 17:32:00 Test Item Value Reference Range Interpretation Comments POC A Na (test code = POC A Na) 140.0 135-145 N [facility] HospitalMmkiseyAUJERTSPB0692-74-42 17:32:00 Test Item Value Reference Range Interpretation Comments POC A Hct (test code = POC A Hct) 29.0 36.0-48.0 L [facility] HospitalNfkerahWAFHMACQV3103-49-33 17:32:00 Test Item Value Reference Range Interpretation Comments POC A K (test code = POC A K) 3.3 3.5-5.1 L [facility] HospitalWitdmraMMCSWGVAZ1552-14-99 17:32:00 Test Item Value Reference Range Interpretation Comments POC A O2 Sat (test code = POC A O2 Sat) 100.0 95.0-100.0 N [facility] HospitalBbxcocrYNWFZZXJV3665-17-10 17:32:00 Test Item Value Reference Range Interpretation Comments POC A HCO3 (test code = POC A HCO3) 22.0 22-26 N [facility] HospitalMvlziymZDMTDCBWD4604-70-77 17:32:00 Test Item Value Reference Range Interpretation Comments POC A BE (test code = -4.0 See_Comment L [Auto mated message] The POC A BE) system which ge nerated this result transmit porsche reference range : <=2. The reference range was not used to interpr et this result as alexia l/abnormal. [facility] HospitalOwukryuFURMOXYSU9087-87-26 17:32:00 Test Item Value Reference Range Interpretation Comments POC A Source (test code = POC A Source) ART [facility] HospitalVjjttidSHQHCLRUS7980-85-99 17:32:00 Test Item Value Reference Range Interpretation Comments POC A pH (test code = POC A pH) 7.33 1 7.35-7.45 L [facility] HospitalBnhdmgdHTAZCHUKL6165-41-50 17:32:00 Test Item Value Reference Range Interpretation Comments POC A PCO2 (test code = POC A PCO2) 41.0 35-45 N [facility] HospitalLzjlbpgCUEEFYMBQ5576-99-74 17:32:00 Test Item Value Reference Range Interpretation Comments POC A Temp (test code = POC A Temp) 37.0 [facility] HospitalIfgnyxdJFFZDDRAM8323-27-13 17:32:00 Test Item Value Reference Range Interpretation Comments POC A PO2 (test code = POC A PO2) 433.0 80-100 H [facility] LakeWuvusgkCkbbzvwfwuqp8810-77-10 17:12:00 Test Item Value Reference Range Interpretation Comments Culture: Aspirate/Body Fluid/Tissue (test code = Culture: Aspirate/Body Fluid/Tissue) [facility] HospitalMuabiduGyxueidrdgjy1468-39-11 16:23:00 Test Item Value Reference Range Interpretation Comments Culture: CSF w/Gram Stain (test code = Culture: CSF w/Gram Stain) [facility]2011-09-21 16:00:00 Test Item Value Reference Range Interpretation Comments Protein CSF (test code = Protein CSF) 39.0 15-45 N [facility]2011-09-21 16:00:00 Test Item Value Reference Range Interpretation Comments Glucose CSF (test code = Glucose CSF) 70.0 45-80 N [facility]2011-09-21 16:00:00 Test Item Value Reference Range Interpretation Comments WBC CSF (test code = 1.0 See_Comment N [Autom ated message] The WBC CSF) system which ge nerated this result transmit porsche reference range : <=5. The reference range was not used to interpr et this result as alexia l/abnormal. [facility]2011-09-21 16:00:00 Test Item Value Reference Range Interpretation Comments Color CSF (test code = Light Red A Color CSF) *ABN*(02/19/2011 11:00:00) ?? [facility]2011-09-21 16:00:00 Test Item Value Reference Range Interpretation Comments Clarity CSF (test code Slight A = Clarity CSF) *ABN*(02/19/2011 11:00:00) ?? [facility]2011-09-21 16:00:00 Test Item Value Reference Range Interpretation Comments Supernat CSF (test Colorless (02/19/2011 N code = Supernat CSF) 11:00:00) ?? [facility]2011-09-21 16:00:00 Test Item Value Reference Range Interpretation Comments RBC CSF (test code = 2885.0 See_Comment H [Autom ated message] The RBC CSF) system which ge nerated this result transmit porsche reference range : <=0. The reference range was not used to interpr et this result as alexia l/abnormal. [facility]2011-09-21 16:00:00 Test Item Value Reference Range Interpretation Comments Tube Num CSF (test xxxxxxx (02/19/2011 N code = Tube Num CSF) 11:00:00) ?? [facility] HospitalMlifirjNDNJXAZQL1688-35-76 15:35:00 Test Item Value Reference Range Interpretation Comments POC A Glu (test code = POC A Glu) 107.0 65-110 N [facility] HospitalQdlmxtlSYKVYXAIF8446-15-96 15:35:00 Test Item Value Reference Range Interpretation Comments POC A K (test code = POC A K) 3.2 3.5-5.1 L [facility] HospitalYdztqknOUOBKYFZS1834-27-82 15:35:00 Test Item Value Reference Range Interpretation Comments POC A Ca Ion (test code = POC A Ca Ion) 1.1 1.16-1.30 L [facility] HospitalQnhvaizMKVBPQWGF8201-58-57 15:35:00 Test Item Value Reference Range Interpretation Comments POC A LA (test code = POC A LA) 0.7 0.5-2.2 N [facility] HospitalLescbieCCWUYLYCH3648-25-38 15:35:00 Test Item Value Reference Range Interpretation Comments POC A Source (test code = POC A Source) ART [facility] HospitalQmddfmcMWRRXHBKJ3231-84-45 15:35:00 Test Item Value Reference Range Interpretation Comments POC A pH (test code = POC A pH) 7.35 1 7.35-7.45 L [facility] HospitalRjhirtuBHSXRLXNJ5743-22-43 15:35:00 Test Item Value Reference Range Interpretation Comments POC A Temp (test code = POC A Temp) 37.0 [facility] HospitalQvizztyTLWRQYYUC1415-15-25 15:35:00 Test Item Value Reference Range Interpretation Comments POC A BE (test code = -3.0 See_Comment L [Auto mated message] The POC A BE) system which ge nerated this result transmit porsche reference range : <=2. The reference range was not used to interpr et this result as alexia l/abnormal. [facility] HospitalAcoghqdQXXMDZPVF9421-79-49 15:35:00 Test Item Value Reference Range Interpretation Comments POC A PCO2 (test code = POC A PCO2) 41.0 35-45 N [facility] HospitalMnpjyvbXTTFMWOYL3856-90-47 15:35:00 Test Item Value Reference Range Interpretation Comments POC A PO2 (test code = POC A PO2) 404.0 80-100 H [facility] HospitalLdfidqpELWTBIAHM5401-57-95 15:35:00 Test Item Value Reference Range Interpretation Comments POC A HCO3 (test code = POC A HCO3) 23.0 22-26 N [facility] MfjubqaNINRZMLAE3119-28-84 15:35:00 Test Item Value Reference Range Interpretation Comments POC A Na (test code = POC A Na) 140.0 135-145 N [facility] ZuehvvcHUHXOSVRB1652-08-47 15:35:00 Test Item Value Reference Range Interpretation Comments POC A O2 Sat (test code = POC A O2 Sat) 100.0 95.0-100.0 N [facility] UitqvcaPYKEAEJKO7743-43-04 15:35:00 Test Item Value Reference Range Interpretation Comments POC A Hct (test code = POC A Hct) 29.0 36.0-48.0 L [facility] [employer] HYMXLUH6986-81-27 15:33:00 Test Item Value Reference Range Interpretation Comments ABO/Rh (test code = ABO/Rh) O NEG [facility] [employer] IALJZZP8996-18-44 15:33:00 Test Item Value Reference Range Interpretation Comments Antibody Scrn (test Negative (02/19/2011 N code = Antibody Scrn) 10:33:00) ?? [facility] TolcvpvEZJFTKBMD1433-29-27 14:06:00 Test Item Value Reference Range Interpretation Comments POC A K (test code = POC A K) 3.7 3.5-5.1 N [facility] ZvxqplhUORTJZUXJ4015-12-00 14:06:00 Test Item Value Reference Range Interpretation Comments POC A Ca Ion (test code = POC A Ca Ion) 1.1 1.16-1.30 L [facility] TbmokhiZFLMJAGVO4367-41-43 14:06:00 Test Item Value Reference Range Interpretation Comments POC A Glu (test code = POC A Glu) 118.0 65-110 H [facility] UvjiajjFTJAIDKNB5397-05-22 14:06:00 Test Item Value Reference Range Interpretation Comments POC A LA (test code = POC A LA) 1.0 0.5-2.2 N [facility] BgquatqUYTZMISKK7027-25-98 14:06:00 Test Item Value Reference Range Interpretation Comments POC A Na (test code = POC A Na) 136.0 135-145 N [facility] WugztukCMPSBYRNH4875-43-63 14:06:00 Test Item Value Reference Range Interpretation Comments POC A pH (test code = POC A pH) 7.43 1 7.35-7.45 N [facility] BymvnkyTYSZTBLBO6613-79-24 14:06:00 Test Item Value Reference Range Interpretation Comments POC A PO2 (test code = POC A PO2) 381.0 80-100 H [facility] HospitalUmmezovSAWAZVVQL7442-91-52 14:06:00 Test Item Value Reference Range Interpretation Comments POC A BE (test code = -1.0 See_Comment N [Auto mated message] The POC A BE) system which ge nerated this result transmit porsche reference range : <=2. The reference range was not used to interpr et this result as alexia l/abnormal. [facility] HospitalKpcqnvjGWSKGCPPR5055-80-42 14:06:00 Test Item Value Reference Range Interpretation Comments POC A HCO3 (test code = POC A HCO3) 23.0 22-26 N [facility] HospitalNwqgpcgPLRGBNAQG5019-87-43 14:06:00 Test Item Value Reference Range Interpretation Comments POC A O2 Sat (test code = POC A O2 Sat) 100.0 95.0-100.0 N [facility] HospitalBygqmuaHLGMLZOQK5380-90-51 14:06:00 Test Item Value Reference Range Interpretation Comments POC A PCO2 (test code = POC A PCO2) 34.0 35-45 L [facility] HospitalLpsrcmdCRCPTISUY9046-34-90 14:06:00 Test Item Value Reference Range Interpretation Comments POC A Temp (test code = POC A Temp) 37.0 [facility] HospitalMdqoiaeZZQLSTETW3489-29-37 14:06:00 Test Item Value Reference Range Interpretation Comments POC A Source (test code = POC A Source) ART [facility] HospitalKrtsqzxXNVTAHWEW8072-14-03 14:06:00 Test Item Value Reference Range Interpretation Comments POC A Hct (test code = POC A Hct) 34.0 36.0-48.0 L [facility] HospitalHriejnyQAKRVRLZT0360-38-16 11:00:00 Test Item Value Reference Range Interpretation Comments AGAP (test code = AGAP) 12.0 10.0-20.0 N [facility] HospitalOiflqqrXIWESHFRQ1266-76-79 11:00:00 Test Item Value Reference Range Interpretation Comments Sodium Lvl (test code = Sodium Lvl) 141.0 135-145 N [facility] HospitalUebobnfBGWKKANMN5402-03-00 11:00:00 Test Item Value Reference Range Interpretation Comments BUN (test code = BUN) 12.0 7-22 N [facility] HospitalCvqxtkwFTMSOZDSB6194-46-54 11:00:00 Test Item Value Reference Range Interpretation Comments Creatinine Lvl (test code = Creatinine 0.6 0.5-1.4 N Lvl) [facility] HospitalXolladpAGKHQCVLY2396-38-29 11:00:00 Test Item Value Reference Range Interpretation Comments CO2 (test code = CO2) 24.0 24-32 N [facility] HospitalNxkcatzLAMOEIXWI0878-12-39 11:00:00 Test Item Value Reference Range Interpretation Comments Calcium Lvl (test code = Calcium Lvl) 7.9 8.5-10.5 L [facility] HospitalYkxribmUOROCUXWF1153-24-04 11:00:00 Test Item Value Reference Range Interpretation Comments Potassium Lvl (test code = Potassium 4.0 3.5-5.1 N Lvl) [facility] HospitalRwrerhdHJQRPHVIQ7532-56-84 11:00:00 Test Item Value Reference Range Interpretation Comments Chloride Lvl (test code = Chloride Lvl) 109.0 95-109 N [facility] HospitalZiwaryrQEXNCUNHB3091-75-32 11:00:00 Test Item Value Reference Range Interpretation Comments Glucose Lvl (test code = Glucose Lvl) 99.0 [facility]CbwzufxERISSGACDA8835-85-08 11:00:00 Test Item Value Reference Range Interpretation Comments Lymphocytes # (test code = Lymphocytes 2.4 1.0-5.5 N #) [facility]manTpmkxniOHBQKYNADJ3617-21-09 11:00:00 Test Item Value Reference Range Interpretation Comments Monocytes # (test code 0.7 See_Comment N [Aut omated message] The = Monocytes #) system which generated this result tra nsmitted reference range : <=0.8. The reference r evelyn was not used to int erpret this result as normal/abnormal . [facility]manZkiyffaAZNAWOITHE3970-34-43 11:00:00 Test Item Value Reference Range Interpretation Comments Basophils # (test code 0.0 See_Comment N [Aut omated message] The = Basophils #) system which generated this result tra nsmitted reference range : <=0.2. The reference r evelyn was not used to int erpret this result as normal/abnormal . [facility]manQiaamqfCYGJYRICRY6558-37-47 11:00:00 Test Item Value Reference Range Interpretation Comments Eosinophils # (test code 0.6 See_Comment H [A utomated message] The = Eosinophils #) system whic h generated this result tra nsmitted reference range : <=0.5. The reference r evelyn was not used to int erpret this result as normal/abnormal . [facility]manCroatlqXRLQYPUXCI8677-54-29 11:00:00 Test Item Value Reference Range Interpretation Comments Segs-Bands # (test code = Segs-Bands #) 2.4 1.5-8.1 N [facility]manXzxlsphAJKNKDJQRO5337-79-41 11:00:00 Test Item Value Reference Range Interpretation Comments Monocytes (test code = Monocytes) 10.9 2.0-12.0 N [facility]manPlsfrvrAPIVVYDYAL1329-73-84 11:00:00 Test Item Value Reference Range Interpretation Comments Basophils (test code = 0.8 See_Comment N [Aut omated message] The Basophils) system which ge nerated this result tra nsmitted reference range : <=1.0. The reference r evelyn was not used to int erpret this result as normal/abnormal . [facility]manNhcmyajKBDUYPBFRZ1935-45-58 11:00:00 Test Item Value Reference Range Interpretation Comments Eosinophils (test code = 9.4 See_Comment H [A utomated message] The Eosinophils) system which ge nerated this result tra nsmitted reference range : <=4.0. The reference r evelyn was not used to int erpret this result as normal/abnormal . [facility]manHunpaviNFUYLYZOPK3227-18-21 11:00:00 Test Item Value Reference Range Interpretation Comments Lymphocytes (test code = Lymphocytes) 39.3 20.0-40.0 N [facility]manIplsndwWGMVICDNWW7925-21-70 11:00:00 Test Item Value Reference Range Interpretation Comments Segs (test code = Segs) 39.6 45.0-75.0 L [facility]manNlosljpLKMIURUPAE3570-55-78 11:00:00 Test Item Value Reference Range Interpretation Comments MPV (test code = MPV) 8.2 7.4-10.4 N [facility]manMtphuxpVDGPPAQXKL0152-63-55 11:00:00 Test Item Value Reference Range Interpretation Comments Platelet (test code = Platelet) 159.0 133-450 N [facility]manLbrtuzfSQIAHUOMKZ4520-47-90 11:00:00 Test Item Value Reference Range Interpretation Comments MCH (test code = MCH) 32.9 pg 27.0-31.0 H [facility]manEildqziWSTPCGOXLH9402-76-89 11:00:00 Test Item Value Reference Range Interpretation Comments MCV (test code = MCV) 94.8 81.0-99.0 N [facility]manUektvdxOLLULWXVUC6455-19-90 11:00:00 Test Item Value Reference Range Interpretation Comments MCHC (test code = MCHC) 34.7 32.0-36.0 N [facility]manZypdvtaLVUMPCEEPQ0918-98-90 11:00:00 Test Item Value Reference Range Interpretation Comments RDW (test code = RDW) 16.4 11.5-14.5 H [facility]manXzgaeopWANEANVRRL7836-19-15 11:00:00 Test Item Value Reference Range Interpretation Comments Hgb (test code = Hgb) 10.7 12.0-16.0 L [facility]manIkbrscrTAVGPUKYYS1546-56-29 11:00:00 Test Item Value Reference Range Interpretation Comments RBC (test code = RBC) 3.26 4.20-5.40 L [facility]XndcljmIETVTCPCSI9273-69-46 11:00:00 Test Item Value Reference Range Interpretation Comments Hct (test code = Hct) 30.9 36.0-48.0 L [facility]manRpentduYPAGTJJZKZ2468-46-86 11:00:00 Test Item Value Reference Range Interpretation Comments WBC (test code = WBC) 6.2 3.7-10.4 N [facility]manKtodcfiFIILNZFBTW4422-50-46 11:00:00 Test Item Value Reference Range Interpretation Comments INR (test code = INR) 1.0 1 0.85-1.17 N [facility]manWqqweuyOIBMISKSQV1505-97-34 11:00:00 Test Item Value Reference Range Interpretation Comments PT (test code = PT) 13.2 s 12.0-14.7 N [facility] KaufmanYtqsoqhEYXJHREERC6515-18-96 11:00:00 Test Item Value Reference Range Interpretation Comments PTT (test code = PTT) 30.3 s 22.9-35.8 N [facility] GLUCOSE GRPITHJ8710-16-21 10:22:00 Test Item Value Reference Range Interpretation Comments Gluc POC Lifscn (test code = Gluc POC 142.0 65-110 H Lifscn) [facility] GLUCOSE [id number] 10:22:00 Test Item Value Reference Range Interpretation Comments Comment1 (test code = Comment1) Notify RN/MD [facility] GLUCOSE [id number] 02:28:00 Test Item Value Reference Range Interpretation Comments Gluc POC Lifscn (test code = Gluc POC 153.0 65-110 H Lifscn) [facility] GLUCOSE [id number] 02:28:00 Test Item Value Reference Range Interpretation Comments Comment1 (test code = Comment1) Notify RN/ [facility] GLUCOSE [id number] 00:46:00 Test Item Value Reference Range Interpretation Comments Gluc POC Lifscn (test code = Gluc POC 149.0 65-110 H Lifscn) [facility] GLUCOSE OJMUVCY7140-36-04 21:40:00 Test Item Value Reference Range Interpretation Comments Comment1 (test code = Comment1) [facility]yqjqSPHCOSGTOC6802-53-93 08:39:00 Test Item Value Reference Range Interpretation Comments MCV (test code = MCV) 94.3 81.0-99.0 N [facility]manLifxdruWAJKNJZJJE0071-07-61 08:39:00 Test Item Value Reference Range Interpretation Comments Hct (test code = Hct) 33.1 36.0-48.0 L [facility]manLomzvdfJXVBRRSGNP7157-19-62 08:39:00 Test Item Value Reference Range Interpretation Comments RDW (test code = RDW) 16.6 11.5-14.5 H [facility]manFzdjgugTHUKQJZJNY5396-18-58 08:39:00 Test Item Value Reference Range Interpretation Comments MCH (test code = MCH) 32.8 pg 27.0-31.0 H [facility]manNqeeqpjUSNZECPFXF1360-77-52 08:39:00 Test Item Value Reference Range Interpretation Comments MCHC (test code = MCHC) 34.7 32.0-36.0 N [facility]aufmanIoujjbmZSBZJPTWCK9841-52-78 08:39:00 Test Item Value Reference Range Interpretation Comments MPV (test code = MPV) 7.9 7.4-10.4 N [facility]aufmanLbhlqguNQRFCRTAWA4379-63-29 08:39:00 Test Item Value Reference Range Interpretation Comments Platelet (test code = Platelet) 152.0 133-450 N [facility]manKymoucmGQHMSLGVYO9740-30-36 08:39:00 Test Item Value Reference Range Interpretation Comments WBC (test code = WBC) 6.4 3.7-10.4 N [facility]manXjleybfXZATHUZXID1475-24-85 08:39:00 Test Item Value Reference Range Interpretation Comments RBC (test code = RBC) 3.51 4.20-5.40 L [facility]manCadvfgzXAFPEPUTYD6185-07-54 08:39:00 Test Item Value Reference Range Interpretation Comments Hgb (test code = Hgb) 11.5 12.0-16.0 L [facility]manXrgnqduCPUITICPXO1638-70-43 07:48:00 Test Item Value Reference Range Interpretation Comments MPV (test code = MPV) 8.1 7.4-10.4 N [facility]manLibclunZJIPNMYFQB3038-58-38 07:48:00 Test Item Value Reference Range Interpretation Comments MCH (test code = MCH) 32.7 pg 27.0-31.0 H [facility]manWvvsvxzQATADFDQKA2916-54-23 07:48:00 Test Item Value Reference Range Interpretation Comments MCV (test code = MCV) 95.1 81.0-99.0 N [facility]manEjuehnbFWJDYJWLQV8972-75-96 07:48:00 Test Item Value Reference Range Interpretation Comments MCHC (test code = MCHC) 34.3 32.0-36.0 N [facility]manHxosfmsULPCJQLPZV8315-74-27 07:48:00 Test Item Value Reference Range Interpretation Comments Platelet (test code = Platelet) 117.0 133-450 L [facility]manJoqbznkBJQJMVMRXJ0926-25-05 07:48:00 Test Item Value Reference Range Interpretation Comments RDW (test code = RDW) 16.5 11.5-14.5 H [facility]manFqufdpxROMIBCZYNS2766-46-26 07:48:00 Test Item Value Reference Range Interpretation Comments WBC (test code = WBC) 12.9 3.7-10.4 H [facility]manIlwwqkoOBYZFWMWAC3726-12-55 07:48:00 Test Item Value Reference Range Interpretation Comments Hct (test code = Hct) 34.1 36.0-48.0 L [facility]manGocpwagFPQYQEEKCK2732-67-06 07:48:00 Test Item Value Reference Range Interpretation Comments Hgb (test code = Hgb) 11.7 12.0-16.0 L [facility]manZuzvqzcUHQLQPWILD3447-38-51 07:48:00 Test Item Value Reference Range Interpretation Comments RBC (test code = RBC) 3.58 4.20-5.40 L [facility]aufmanNqbhldyTXKRXFQQYC0198-47-57 07:48:00 Test Item Value Reference Range Interpretation Comments Basophils # (test code 0.1 See_Comment N [Aut omated message] The = Basophils #) system which generated this result tra nsmitted reference range : <=0.2. The reference r evelyn was not used to int erpret this result as normal/abnormal . [facility]manHiidhleIWYXHIHMOY3935-69-89 07:48:00 Test Item Value Reference Range Interpretation Comments Eosinophils # (test code 0.4 See_Comment N [A utomated message] The = Eosinophils #) system whic h generated this result tra nsmitted reference range : <=0.5. The reference r evelyn was not used to int erpret this result as normal/abnormal . [facility]aufmanMcvydkuUKQCKVFFJS0426-71-03 07:48:00 Test Item Value Reference Range Interpretation Comments Monocytes # (test code 0.6 See_Comment N [Aut omated message] The = Monocytes #) system which generated this result tra nsmitted reference range : <=0.8. The reference r evelyn was not used to int erpret this result as normal/abnormal . [facility]manWwgsrtvTWEGPOGFOH7865-16-40 07:48:00 Test Item Value Reference Range Interpretation Comments Monocytes (test code = Monocytes) 4.8 2.0-12.0 N [facility]manXwskhinCAFQEGLBNW3314-23-13 07:48:00 Test Item Value Reference Range Interpretation Comments Lymphocytes (test code = Lymphocytes) 26.8 20.0-40.0 N [facility]manXmctsyuUHFAJWWXPU2673-01-34 07:48:00 Test Item Value Reference Range Interpretation Comments Lymphocytes # (test code = Lymphocytes 3.5 1.0-5.5 N #) [facility]aufmanUrblgivQMPVFHWVWS4385-63-36 07:48:00 Test Item Value Reference Range Interpretation Comments Segs-Bands # (test code = Segs-Bands #) 8.3 1.5-8.1 H [facility]aufmanQykouapZQIGRYPDXX8267-45-46 07:48:00 Test Item Value Reference Range Interpretation Comments Basophils (test code = 0.8 See_Comment N [Aut omated message] The Basophils) system which ge nerated this result tra nsmitted reference range : <=1.0. The reference r evelyn was not used to int erpret this result as normal/abnormal . [place] [id number] 07:48:00 Test Item Value Reference Range Interpretation Comments Eosinophils (test code = 3.0 See_Comment N [A utomated message] The Eosinophils) system which ge nerated this result tra nsmitted reference range : <=4.0. The reference r evelyn was not used to int erpret this result as normal/abnormal . [facility]manFoafriqXHDSYKOWEX8833-54-88 07:48:00 Test Item Value Reference Range Interpretation Comments Segs (test code = Segs) 64.6 45.0-75.0 N [facility] HospitalRusrtvbVJIXTSXIY0687-43-89 09:47:00 Test Item Value Reference Range Interpretation Comments Globulin (test code = Globulin) 3.1 2.0-4.0 N [facility] HospitalCwmgxkpWCBCZKJLQ8260-50-82 09:47:00 Test Item Value Reference Range Interpretation Comments Albumin Lvl (test code = Albumin Lvl) 2.7 3.5-5.0 L [facility] HospitalXvhuuloLGMFEIAWH8578-62-62 09:47:00 Test Item Value Reference Range Interpretation Comments Total Protein (test code = Total 5.8 6.4-8.4 L Protein) [facility] HospitalCvmircxZKUBNBPXD0513-09-86 09:47:00 Test Item Value Reference Range Interpretation Comments B/C Ratio (test code = B/C Ratio) 43.0 1 6-25 H [facility] HospitalPuukrhmJEZZUCCPG3645-40-95 09:47:00 Test Item Value Reference Range Interpretation Comments A/G Ratio (test code = A/G Ratio) 0.9 1 0.7-1.6 N [facility] HospitalTpshttuZXRTUITMX8223-56-45 09:47:00 Test Item Value Reference Range Interpretation Comments ALT (test code = ALT) 52.0 See_Comment N [Auto mated message] The system which ge nerated this result transmit porsche reference range : <=65. The reference range was not used to interpr et this result as alexia l/abnormal. [facility] HospitalOupuslxNYZCYDVKG2944-83-16 09:47:00 Test Item Value Reference Range Interpretation Comments Alk Phos (test code = Alk Phos) 183.0 39-136 H [facility] HospitalEuqslevYXQZGSGGS9960-09-81 09:47:00 Test Item Value Reference Range Interpretation Comments eGFR (test code = eGFR) no gt [facility] HospitalHqetwxvGGPGTWLRG7711-57-03 09:47:00 Test Item Value Reference Range Interpretation Comments AGAP (test code = AGAP) 16.9 10.0-20.0 N [facility] HospitalTbxvsqpRNGUKUIFC4823-15-88 09:47:00 Test Item Value Reference Range Interpretation Comments Calcium Lvl (test code = Calcium Lvl) 8.5 8.5-10.5 N [facility] HospitalZzakmwyPMEYNXTCT7819-81-51 09:47:00 Test Item Value Reference Range Interpretation Comments Bili Total (test code = Bili Total) 0.6 0.2-1.3 N [facility] HospitalOeuqllwNNPRPCIKQ0198-88-66 09:47:00 Test Item Value Reference Range Interpretation Comments AST (test code = AST) 49.0 See_Comment H [Auto mated message] The system which ge nerated this result transmit porsche reference range : <=37. The reference range was not used to interpr et this result as alexia l/abnormal. [facility] HospitalDrsrvblWWKXAMLYT7106-02-32 09:47:00 Test Item Value Reference Range Interpretation Comments Chloride Lvl (test code = Chloride Lvl) 97.0 95-109 N [facility] HospitalWdkcqdgRNRWFBWBD4240-40-54 09:47:00 Test Item Value Reference Range Interpretation Comments Potassium Lvl (test code = Potassium 4.9 3.5-5.1 N Lvl) [facility] HospitalNmbgqsjDDZOJIOJK4391-35-16 09:47:00 Test Item Value Reference Range Interpretation Comments Creatinine Lvl (test code = Creatinine 0.4 0.5-1.4 L Lvl) [facility] HospitalDirjztpQYFORHKHF4706-55-84 09:47:00 Test Item Value Reference Range Interpretation Comments Sodium Lvl (test code = Sodium Lvl) 134.0 135-145 L [facility] HospitalVjxyfyjXJUFHCSHC8761-82-36 09:47:00 Test Item Value Reference Range Interpretation Comments Glucose Lvl (test code = Glucose Lvl) 109.0 [facility] HospitalRkmiebsSDUPZOFMD9265-72-78 09:47:00 Test Item Value Reference Range Interpretation Comments BUN (test code = BUN) 17.0 7-22 N [facility] HospitalUmvnxroWJNRDUZVI6108-64-51 09:47:00 Test Item Value Reference Range Interpretation Comments CO2 (test code = CO2) 25.0 24-32 N [facility] HospitalYsnecopCXHDKUANU1526-75-14 10:09:00 Test Item Value Reference Range Interpretation Comments AGAP (test code = AGAP) 18.6 10.0-20.0 N [facility] HospitalLfwxnsxVWZAAFADX9086-22-38 10:09:00 Test Item Value Reference Range Interpretation Comments Calcium Lvl (test code = Calcium Lvl) 8.3 8.5-10.5 L [facility] HospitalYhavduiZZSEZUPTT0084-16-87 10:09:00 Test Item Value Reference Range Interpretation Comments Glucose Lvl (test code = Glucose Lvl) 63.0 [facility] HospitalEnvisdxJNBJDZMTM2364-30-99 10:09:00 Test Item Value Reference Range Interpretation Comments BUN (test code = BUN) 19.0 7-22 N [facility] HospitalAofzrazLOLXSRKIB8621-21-81 10:09:00 Test Item Value Reference Range Interpretation Comments Creatinine Lvl (test code = Creatinine 0.7 0.5-1.4 N Lvl) [facility] HospitalSrwfwypJVLHAKNID9167-35-31 10:09:00 Test Item Value Reference Range Interpretation Comments Sodium Lvl (test code = Sodium Lvl) 135.0 135-145 N [facility] HospitalVuxqonnIDAJGKCVO9362-33-42 10:09:00 Test Item Value Reference Range Interpretation Comments Chloride Lvl (test code = Chloride Lvl) 97.0 95-109 N [facility] HospitalJidunonVNWBCBQOK8335-56-49 10:09:00 Test Item Value Reference Range Interpretation Comments Potassium Lvl (test code = Potassium 3.6 3.5-5.1 N Lvl) [facility] HospitalRmtujdmOLYCVLPUC5147-74-83 10:09:00 Test Item Value Reference Range Interpretation Comments CO2 (test code = CO2) 23.0 24-32 L [facility]manAkuivpiFEPFLIFVOS5659-93-72 10:09:00 Test Item Value Reference Range Interpretation Comments Monocytes # (test code 1.0 See_Comment H [Aut omated message] The = Monocytes #) system which generated this result tra nsmitted reference range : <=0.8. The reference r evelyn was not used to int erpret this result as normal/abnormal . [facility]manHtyxhctTGAVJZQWGV1578-96-62 10:09:00 Test Item Value Reference Range Interpretation Comments Basophils # (test code 0.1 See_Comment N [Aut omated message] The = Basophils #) system which generated this result tra nsmitted reference range : <=0.2. The reference r evelyn was not used to int erpret this result as normal/abnormal . [facility]manYngbirkQIKBGWAWJC2037-19-67 10:09:00 Test Item Value Reference Range Interpretation Comments Eosinophils # (test code 0.2 See_Comment N [A utomated message] The = Eosinophils #) system wh h generated this result tra nsmitted reference range : <=0.5. The reference r evelyn was not used to int erpret this result as normal/abnormal . [facility]manXhfputfCZNLFCMHTR6561-27-13 10:09:00 Test Item Value Reference Range Interpretation Comments Lymphocytes # (test code = Lymphocytes 4.9 1.0-5.5 N #) [facility]manDkbfianAVOPKWLPZA8842-66-72 10:09:00 Test Item Value Reference Range Interpretation Comments Basophils (test code = 0.7 See_Comment N [Aut omated message] The Basophils) system which ge nerated this result tra nsmitted reference range : <=1.0. The reference r evelyn was not used to int erpret this result as normal/abnormal . [facility]manCsdyxjkSJVIPKWZEO7615-62-50 10:09:00 Test Item Value Reference Range Interpretation Comments Segs-Bands # (test code = Segs-Bands #) 12.2 1.5-8.1 H [facility]manSmsakshAZDMUVXYVR6053-54-55 10:09:00 Test Item Value Reference Range Interpretation Comments Monocytes (test code = Monocytes) 5.5 2.0-12.0 N [facility]manKuvdybfFYKNRTICTS2907-02-25 10:09:00 Test Item Value Reference Range Interpretation Comments Eosinophils (test code = 1.1 See_Comment N [A utomated message] The Eosinophils) system which ge nerated this result tra nsmitted reference range : <=4.0. The reference r evelyn was not used to int erpret this result as normal/abnormal . [facility]manKqjgeliQMMTOEYXWH1047-40-80 10:09:00 Test Item Value Reference Range Interpretation Comments Segs (test code = Segs) 66.2 45.0-75.0 N [facility]manHcjuzkmIDKVTMYGGS4683-68-90 10:09:00 Test Item Value Reference Range Interpretation Comments Lymphocytes (test code = Lymphocytes) 26.5 20.0-40.0 N [facility] HospitalEbsnlitKTWOFQYXU7376-82-06 19:00:00 Test Item Value Reference Range Interpretation Comments Magnesium Lvl (test code = Magnesium 1.8 1.8-2.4 N Lvl) [facility] HospitalBrijepkQTHPPDLLS8042-08-36 19:00:00 Test Item Value Reference Range Interpretation Comments AST (test code = AST) 57.0 See_Comment H [Auto mated message] The system which ge nerated this result transmit porsche reference range : <=37. The reference range was not used to interpr et this result as alexia l/abnormal. [facility]aleRihndgmMYTDUTCGS8892-52-01 19:00:00 Test Item Value Reference Range Interpretation Comments Total Protein (test code = Total 6.8 6.4-8.4 N Protein) [facility] HospitalSqvmfprYTMWOANYR1965-74-00 19:00:00 Test Item Value Reference Range Interpretation Comments Albumin Lvl (test code = Albumin Lvl) 3.2 3.5-5.0 L [facility]aleMyelxnlLQRDGVSIG0031-72-19 19:00:00 Test Item Value Reference Range Interpretation Comments Globulin (test code = Globulin) 3.6 2.0-4.0 N [facility]aleWqqmersDFSMKVSSV0756-41-23 19:00:00 Test Item Value Reference Range Interpretation Comments A/G Ratio (test code = A/G Ratio) 0.9 1 0.7-1.6 N [facility]aleFrlsflfDDHIROUEE7402-47-05 19:00:00 Test Item Value Reference Range Interpretation Comments ALT (test code = ALT) 59.0 See_Comment N [Auto mated message] The system which ge nerated this result transmit porsche reference range : <=65. The reference range was not used to interpr et this result as alexia l/abnormal. [facility]aleJgxrvjjHFDHNBVYX6993-67-49 19:00:00 Test Item Value Reference Range Interpretation Comments Alk Phos (test code = Alk Phos) 258.0 39-136 H [facility]aleDfuebvyIPAENQSNE4679-90-25 19:00:00 Test Item Value Reference Range Interpretation Comments Bili Total (test code = Bili Total) 0.7 0.2-1.3 N [facility]aleCkiqvfjEBLYNIVXF6346-82-13 19:00:00 Test Item Value Reference Range Interpretation Comments B/C Ratio (test code = B/C Ratio) 45.0 1 6-25 H [facility]TdwfexkCXWXCTNGPB7761-99-53 19:00:00 Test Item Value Reference Range Interpretation Comments Anisocyte (test code = 1+ *ABN*(02/11/2011 A Anisocyte) 14:00:00) ?? [facility] GLUCOSE TCZPGJG3626-68-35 10:00:00 Test Item Value Reference Range Interpretation Comments Comment2 (test code = Comment2) Sliding Scale [facility] HospitalSTOOL TGUTO7800-16-79 05:59:00 Test Item Value Reference Range Interpretation Comments Fecal Leukocyte (test None Seen N code = Fecal Leukocyte) 4(02/11/2011 00:59:00) ?? [facility] GLUCOSE BUSDOMQ8990-21-85 02:00:00 Test Item Value Reference Range Interpretation Comments Comment2 (test code = Comment2) Sliding Scale [facility] HospitalYdejuhqQEPPTLLEG1679-71-39 19:39:00 Test Item Value Reference Range Interpretation Comments eGFR (test code = eGFR) 48.0 1 [facility] HospitalJqpahmqAAKVSZQAC8478-03-74 19:39:00 Test Item Value Reference Range Interpretation Comments Globulin (test code = Globulin) 3.0 2.0-4.0 N [facility] HospitalVzjomcwVHWCUOPFS8543-74-50 19:39:00 Test Item Value Reference Range Interpretation Comments A/G Ratio (test code = A/G Ratio) 1.0 1 0.7-1.6 N [facility] HospitalBmejjceRGJBRIXWP2072-11-89 19:39:00 Test Item Value Reference Range Interpretation Comments B/C Ratio (test code = B/C Ratio) 23.0 1 6-25 N [facility] HospitalJfswnslEIYFPFAFY4559-63-05 19:39:00 Test Item Value Reference Range Interpretation Comments AST (test code = AST) 31.0 See_Comment N [Auto mated message] The system which ge nerated this result transmit porsche reference range : <=37. The reference range was not used to interpr et this result as alexia l/abnormal. [facility] HospitalBkwiesxICSNZIVCM3773-39-17 19:39:00 Test Item Value Reference Range Interpretation Comments Albumin Lvl (test code = Albumin Lvl) 3.1 3.5-5.0 L [facility] HospitalZpmknszECXGRWICW8070-09-36 19:39:00 Test Item Value Reference Range Interpretation Comments ALT (test code = ALT) 64.0 See_Comment N [Auto mated message] The system which ge nerated this result transmit porsche reference range : <=65. The reference range was not used to interpr et this result as alexia l/abnormal. [facility] HospitalNfsfygcIOOSGCSFH5074-84-35 19:39:00 Test Item Value Reference Range Interpretation Comments Total Protein (test code = Total 6.1 6.4-8.4 L Protein) [facility] HospitalUgewkpsWMCYVDWOS6372-73-40 19:39:00 Test Item Value Reference Range Interpretation Comments Bili Total (test code = Bili Total) 0.5 0.2-1.3 N [facility] HospitalIrstoneHPLGAHQKR1753-08-78 19:39:00 Test Item Value Reference Range Interpretation Comments Alk Phos (test code = Alk Phos) 235.0 39-136 H [facility]manYsnqhecUOGLJVTILE0169-89-91 10:19:00 Test Item Value Reference Range Interpretation Comments Polychrom (test code = Slight (02/08/2011 N Polychrom) 05:19:00) ?? [facility]manDncdrvjGKQJARXANF1635-81-00 10:19:00 Test Item Value Reference Range Interpretation Comments Hypochrom (test code = Slight (02/08/2011 N Hypochrom) 05:19:00) ?? [facility]manAwsrqeeJFBTKIRWYQ2490-34-98 10:19:00 Test Item Value Reference Range Interpretation Comments Anisocyte (test code = 1+ *ABN*(02/08/2011 A Anisocyte) 05:19:00) ?? [facility]manCsjthnvAGLIMQKYJI1721-61-46 10:19:00 Test Item Value Reference Range Interpretation Comments Plt Morph (test code = Normal (02/08/2011 N Plt Morph) 05:19:00) ?? [facility] GLUCOSE DOMLUML8428-58-54 02:44:00 Test Item Value Reference Range Interpretation Comments Comment2 (test code = Comment2) Sliding Scale [facility]manUidnsreKMHWVIJCST7387-72-38 08:33:00 Test Item Value Reference Range Interpretation Comments Bands (test code = 0.0 See_Comment N [Automat ed message] The Bands) system which ge nerated this result transmit porsche reference range : <=11.0. The reference r evelyn was not used to interpr et this result as alexia l/abnormal. [facility] BANK GJBKNKZ0391-11-85 19:12:00 Test Item Value Reference Range Interpretation Comments Antibody Scrn (test Negative (02/05/2011 N code = Antibody Scrn) 14:12:00) ?? [facility] OAEIOME0078-00-69 19:12:00 Test Item Value Reference Range Interpretation Comments ABO/Rh (test code = ABO/Rh) O NEG [facility] LlixtllOUMNVLFZJ9210-91-74 02:09:00 Test Item Value Reference Range Interpretation Comments Total CK (test code = Total CK) 64.0 12-[address] [facility] HospitalKavpzumSVBJMZFKC6546-39-00 02:09:00 Test Item Value Reference Range Interpretation Comments Troponin-I (test code 0.03 See_Comment N [Auto mated message] The = Troponin-I) system which g enerated this result transmit porsche reference range : <=0.40. The reference r evelyn was not used to interpr et this result as alexia l/abnormal. [facility] HospitalQsfcvwoRSKUNDSBS6515-92-56 18:20:00 Test Item Value Reference Range Interpretation Comments Total CK (test code = Total CK) 71.0 12-191 N [facility]aleOtywmmzNQLQFTXNL2962-45-83 18:20:00 Test Item Value Reference Range Interpretation Comments Troponin-I (test code 0.05 See_Comment N [Auto mated message] The = Troponin-I) system which g enerated this result transmit porsche reference range : <=0.40. The reference r evelyn was not used to interpr et this result as alexia l/abnormal. [facility]rxtybBnksmsmgvguu8161-68-20 23:00:00 Test Item Value Reference Range Interpretation Comments Culture: Urine (test code = Culture: Urine) [facility] HospitalVusfucuJZDOEHDJNC3989-87-73 22:21:00 Test Item Value Reference Range Interpretation Comments UA Urobilinogen (test code *NA*(02/02/2011 0.1-1.0 = UA Urobilinogen) 17:21:00) ?? [facility] HospitalHayrhwiTLJPMZEJVT3693-17-01 22:21:00 Test Item Value Reference Range Interpretation Comments UA Sq Epi (test code = UA Sq Epi) None [facility]en [facility] HospitalDwsdciyFWKESKQQOD5731-12-99 22:21:00 Test Item Value Reference Range Interpretation Comments UA Leuk Est (test Negative (02/02/2011 N code = UA Leuk Est) 17:21:00) ?? [facility]ycigmnEJFZMOIARL6036-36-51 22:21:00 Test Item Value Reference Range Interpretation Comments UA RBC (test code = <1.0 See_Comment N [Automa porsche message] The UA RBC) system which ge nerated this result transmit porsche reference range : <=2. The reference range was not used to interpr et this result as alexia l/abnormal. [facility]FILSVDZMJK3482-[facility]-40 22:21:00 Test Item Value Reference Range Interpretation Comments UA Bacteria (test code Occasional /HPF = UA Bacteria) *NA*(02/02/2011 17:21:00) ?? [facility] HospitalZgogigaNFKJJPGEMZ9828-16-01 22:21:00 Test Item Value Reference Range Interpretation Comments UA Nitrite (test code Negative (02/02/2011 N = UA Nitrite) 17:21:00) ?? [facility] 22:21:00 Test Item Value Reference Range Interpretation Comments UA Ketones (test code Negative mg/dL = UA Ketones) *NA*(02/02/2011 17:21:00) ?? [facility]trgBWPUPVBMAH6533-16-83 22:21:00 Test Item Value Reference Range Interpretation Comments UA Bili (test code = Negative *NA*(02/02/2011 UA Bili) 17:21:00) ?? [facility]xsixtrYNBBHILZPT1821-40-45 22:21:00 Test Item Value Reference Range Interpretation Comments UA Blood (test code = Negative (02/02/2011 N UA Blood) 17:21:00) ?? [facility]WafaxreESUHOVDXKL7575-06-74 22:21:00 Test Item Value Reference Range Interpretation Comments UA Protein (test code Negative mg/dL N = UA Protein) (02/02/2011 17:21:00) ?? [facility] HospitalRqybxdhDKELBHQIOJ2021-15-86 22:21:00 Test Item Value Reference Range Interpretation Comments UA Glucose (test code Negative mg/dL = UA Glucose) *NA*(02/02/2011 17:21:00) ?? [facility]HjoelzfFQZNRKUOYB5936-73-22 22:21:00 Test Item Value Reference Range Interpretation Comments UA Color (test code = Light Yellow UA Color) *NA*(02/02/2011 17:21:00) ?? [facility] HospitalJdjrwkrLYVUSDDELF3119-79-09 22:21:00 Test Item Value Reference Range Interpretation Comments UA Turbidity (test code = Clear (02/02/2011 N UA Turbidity) 17:21:00) ?? [facility] HospitalIknkyqhVSSPUQPRWX2830-81-08 22:21:00 Test Item Value Reference Range Interpretation Comments UA Spec Grav (test code = UA Spec 1.004 1 N Grav) [facility] HospitalMdmazeuIVEKXGSTUI9126-36-65 22:21:00 Test Item Value Reference Range Interpretation Comments UA pH (test code = UA pH) 7.0 1 5.0-8.0 N [facility] HospitalIndjnxmQEBLIZYOF7937-72-27 10:30:00 Test Item Value Reference Range Interpretation Comments T4 Free (test code = T4 Free) 0.98 0.76-1.46 N [facility] HospitalBejbatdSRBVTFFIU4575-49-11 10:30:00 Test Item Value Reference Range Interpretation Comments TSH (test code = TSH) 0.711 0.360-3.[address] [facility] HospitalGftejgrGZBOVKMVLW8538-95-15 10:30:00 Test Item Value Reference Range Interpretation Comments Prealbumin (test code = Prealbumin) 19.4 18.0-45.0 N [facility] GLUCOSE VRUMCZY0168-09-38 10:46:00 Test Item Value Reference Range Interpretation Comments Comment1 (test code = Comment1) Notify RN/MD [facility] GLUCOSE XLKSLYA4623-82-31 10:46:00 Test Item Value Reference Range Interpretation Comments Gluc POC Lifscn (test code = Gluc POC 109.0 65-110 N Lifscn) [facility] HospitalGtqntocSQZPEGUQP5842-91-51 08:36:00 Test Item Value Reference Range Interpretation Comments Phosphorus (test code = Phosphorus) 2.9 2.5-4.5 N [facility] HospitalJbkekxbYCBXEZEVJ3580-32-26 08:36:00 Test Item Value Reference Range Interpretation Comments CO2 (test code = CO2) 24.0 24-32 N [facility] HospitalMwrdxnfZOJPNKNUM0109-75-88 08:36:00 Test Item Value Reference Range Interpretation Comments Calcium Lvl (test code = Calcium Lvl) 7.7 8.5-10.5 L [facility] HospitalFahahkbNSRJWORSE9168-63-39 08:36:00 Test Item Value Reference Range Interpretation Comments Glucose Lvl (test code = Glucose Lvl) 100.0 [facility] HospitalEkjdysiBEIOHCOSA1120-05-65 08:36:00 Test Item Value Reference Range Interpretation Comments Sodium Lvl (test code = Sodium Lvl) 138.0 135-145 N [facility] HospitalZzczoblVKTIJLHZA5704-57-35 08:36:00 Test Item Value Reference Range Interpretation Comments Potassium Lvl (test code = Potassium 3.9 3.5-5.1 N Lvl) [facility] HospitalHohkfosNSRKBKBVO1932-57-42 08:36:00 Test Item Value Reference Range Interpretation Comments BUN (test code = BUN) 17.0 7-22 N [facility] HospitalLwyogtzUGLMGMXZB5074-72-15 08:36:00 Test Item Value Reference Range Interpretation Comments Creatinine Lvl (test code = Creatinine 0.7 0.5-1.4 N Lvl) [facility] HospitalNzvwpgaTTNCHKQQC7410-11-19 08:36:00 Test Item Value Reference Range Interpretation Comments Chloride Lvl (test code = Chloride Lvl) 100.0 95-109 N [facility] HospitalBnbsupwDOTEVAUMM3147-37-27 08:36:00 Test Item Value Reference Range Interpretation Comments AGAP (test code = AGAP) 17.9 10.0-20.0 N [facility] HospitalXuehaviPGSIYDWIJ8201-02-68 08:36:00 Test Item Value Reference Range Interpretation Comments Magnesium Lvl (test code = Magnesium 1.9 1.8-2.4 N Lvl) [facility] HospitalIbfrezeXFPEHEHGT5336-97-74 08:36:00 Test Item Value Reference Range Interpretation Comments Ca Norm (test code = Ca Norm) 1.13 1.16-1.30 L [facility] HospitalVfaxiihMJYLFTUBQ8863-41-24 08:36:00 Test Item Value Reference Range Interpretation Comments Ca Ion (test code = Ca Ion) 1.09 1.16-1.30 L [facility] HospitalKzuxamrBNQRWURIP3181-19-47 08:36:00 Test Item Value Reference Range Interpretation Comments Ca Norm mgdL (test code = Ca Norm mgdL) 4.52 4.65-5.20 L [facility] HospitalRcwyadcEOUNODBGC7072-84-37 08:36:00 Test Item Value Reference Range Interpretation Comments Ca Ion mgdL (test code = Ca Ion mgdL) 4.36 4.65-5.20 L [facility]GmdfhedAHWANVYWPK9625-18-40 08:36:00 Test Item Value Reference Range Interpretation Comments Large Plt (test code = Slight *ABN*(01/31/2011 A Large Plt) 03:36:00) ?? [facility]manFnaizolHUDXCQSXNC8323-11-95 08:36:00 Test Item Value Reference Range Interpretation Comments Monocytes # (test code 1.4 See_Comment H [Aut omated message] The = Monocytes #) system which generated this result tra nsmitted reference range : <=0.8. The reference r evelyn was not used to int erpret this result as normal/abnormal . [facility]manSvvnztpVNLLOYJKMU2203-11-19 08:36:00 Test Item Value Reference Range Interpretation Comments Myelocytes (test code = Myelocytes) 3.0 H [facility]manCkaseukDVMBOIRPCF8778-53-20 08:36:00 Test Item Value Reference Range Interpretation Comments Segs-Bands # (test code = Segs-Bands #) 18.6 1.5-8.1 H [facility]manIvpdifzZLWQOGQBWA8639-00-96 08:36:00 Test Item Value Reference Range Interpretation Comments Lymphocytes # (test code = Lymphocytes 1.6 1.0-5.5 N #) [facility]manOlfspdfUQWQSQXLSI5544-49-80 08:36:00 Test Item Value Reference Range Interpretation Comments Metamyelocytes (test code 2.0 See_Comment H [ Automated message] = Metamyelocytes) The system which generated this result transmitted ref erence range: <=1.0. T he reference range was not used to int erpret this result as normal/abnormal . [facility]manJllnfikUJHLUISTNA0065-48-07 08:36:00 Test Item Value Reference Range Interpretation Comments Lymphocytes (test code = Lymphocytes) 7.0 20.0-40.0 L [facility]manIdbistxNYKZHLRMJO2618-95-63 08:36:00 Test Item Value Reference Range Interpretation Comments Monocytes (test code = Monocytes) 6.0 2.0-12.0 N [facility]manPbisjflCOJPRXZDVC0312-65-74 08:36:00 Test Item Value Reference Range Interpretation Comments Segs (test code = Segs) 79.0 45.0-75.0 H [facility]manUigxwouQQKQYQOTQD1112-08-78 08:36:00 Test Item Value Reference Range Interpretation Comments Bands (test code = 2.0 See_Comment N [Automat ed message] The Bands) system which ge nerated this result transmit porsche reference range : <=11.0. The reference r evelyn was not used to interpr et this result as alexia l/abnormal. [facility]manRtpaezoVYOLLUAPLY6870-46-81 08:36:00 Test Item Value Reference Range Interpretation Comments Hypochrom (test code = Slight (01/31/2011 N Hypochrom) 03:36:00) ?? [facility]manFgcczclMHZZWIPCLU3818-39-99 08:36:00 Test Item Value Reference Range Interpretation Comments Polychrom (test code = Slight (01/31/2011 N Polychrom) 03:36:00) ?? [facility]manNwujrtqZIHZGHNGUC5312-88-99 08:36:00 Test Item Value Reference Range Interpretation Comments Rouleaux (test code = Present A Rouleaux) *ABN*(01/31/2011 03:36:00) ?? [facility]manRctjxlkCXAYVHUDND8441-74-15 08:36:00 Test Item Value Reference Range Interpretation Comments Atypical Lymphs (test code = Atypical 0.0 N Lymphs) [facility]manDwiybffLQIGHZKFSW8056-70-33 08:36:00 Test Item Value Reference Range Interpretation Comments Promyelocytes (test code = 1.0 H Promyelocytes) [facility]manClttqapMNXKSSHWGF7367-32-60 08:36:00 Test Item Value Reference Range Interpretation Comments RDW (test code = RDW) 15.3 11.5-14.5 H [facility]manLimhcmmBHWNYXJMDU5338-64-86 08:36:00 Test Item Value Reference Range Interpretation Comments MPV (test code = MPV) 10.1 7.4-10.4 N [facility]manRavzxamZJUBKIBDLO3381-47-18 08:36:00 Test Item Value Reference Range Interpretation Comments Platelet (test code = Platelet) 166.0 133-450 N [facility]manZapiyfhMUDKAHRVHZ5308-82-26 08:36:00 Test Item Value Reference Range Interpretation Comments Hct (test code = Hct) 37.3 36.0-48.0 N [facility]manPwchfucZLPLAAEJXU3052-61-46 08:36:00 Test Item Value Reference Range Interpretation Comments MCHC (test code = MCHC) 32.7 32.0-36.0 N [facility]manEqcvbtyPIZSVGIRCN8203-49-02 08:36:00 Test Item Value Reference Range Interpretation Comments MCV (test code = MCV) 94.8 81.0-99.0 N [facility]JpldlezNULBRVXIBH0265-58-85 08:36:00 Test Item Value Reference Range Interpretation Comments MCH (test code = MCH) 31.0 pg 27.0-31.0 N [facility]manQeskqyeXAXVCWANIK2795-68-22 08:36:00 Test Item Value Reference Range Interpretation Comments WBC (test code = WBC) 23.0 3.7-10.4 H [facility]manKwscomxUDZCCULGRD8883-98-66 08:36:00 Test Item Value Reference Range Interpretation Comments RBC (test code = RBC) 3.93 4.20-5.40 L [facility]manAwvdepiJFILQLMKIY0717-26-54 08:36:00 Test Item Value Reference Range Interpretation Comments Hgb (test code = Hgb) 12.2 12.0-16.0 N [facility] GLUCOSE LHERVWY0859-10-75 05:49:00 Test Item Value Reference Range Interpretation Comments Gluc POC Lifscn (test code = Gluc POC 188.0 65-110 H Lifscn) [facility] GLUCOSE AVODMZD5886-95-19 05:49:00 Test Item Value Reference Range Interpretation Comments Comment1 (test code = Comment1) Notify RN/ [facility] GLUCOSE EMFYSDH7895-56-83 01:36:00 Test Item Value Reference Range Interpretation Comments Gluc POC Lifscn (test code = Gluc POC 233.0 65-110 H Lifscn) [facility] GLUCOSE JAJTEGD8088-56-60 16:35:00 Test Item Value Reference Range Interpretation Comments Comment1 (test code = Comment1) Notify RN/ [facility] HospitalJtqzlhjVAUPJNDRO4931-81-14 15:02:00 Test Item Value Reference Range Interpretation Comments Albumin Lvl (test code = Albumin Lvl) 2.7 3.5-5.0 L [facility] HospitalPihldciJTQNDXEIY3220-60-99 15:02:00 Test Item Value Reference Range Interpretation Comments Phosphorus (test code = Phosphorus) 3.7 2.5-4.5 N [facility] HospitalIcorwutYYNUBGITE0429-29-39 15:02:00 Test Item Value Reference Range Interpretation Comments Ca Ion mgdL (test code = Ca Ion mgdL) 4.2 4.65-5.20 L [facility] HospitalYkthrznTLDDSAOES4524-89-52 15:02:00 Test Item Value Reference Range Interpretation Comments Ca Norm mgdL (test code = Ca Norm mgdL) 4.24 4.65-5.20 L [facility] HospitalUnlwqebLUWNRQCOX2670-52-93 15:02:00 Test Item Value Reference Range Interpretation Comments Ca Ion (test code = Ca Ion) 1.05 1.16-1.30 L [facility] HospitalBlzujflJDCHZCUAU5170-50-94 15:02:00 Test Item Value Reference Range Interpretation Comments Ca Norm (test code = Ca Norm) 1.06 1.16-1.30 L [facility] HospitalQaxfyglGTQOLQKYG9654-17-62 15:02:00 Test Item Value Reference Range Interpretation Comments Magnesium Lvl (test code = Magnesium 2.4 1.8-2.4 N Lvl) [facility] HospitalFwuikfbVCEOESDYY0828-00-07 15:02:00 Test Item Value Reference Range Interpretation Comments AGAP (test code = AGAP) 15.0 10.0-20.0 N [facility] HospitalKrszrhlSKMTHJNZB3942-31-56 15:02:00 Test Item Value Reference Range Interpretation Comments BUN (test code = BUN) 23.0 7-22 H [facility] HospitalQvbyeoqQDPMZLQYC8612-54-76 15:02:00 Test Item Value Reference Range Interpretation Comments Creatinine Lvl (test code = Creatinine 0.8 0.5-1.4 N Lvl) [facility] HospitalHmyovdlRYWBXDAOY7251-05-80 15:02:00 Test Item Value Reference Range Interpretation Comments Glucose Lvl (test code = Glucose Lvl) 232.0 [facility] HospitalZopahrlDMRDICVBY3844-03-22 15:02:00 Test Item Value Reference Range Interpretation Comments Potassium Lvl (test code = Potassium 4.0 3.5-5.1 N Lvl) [facility] HospitalUqzidiuFXOAMQITW3849-46-93 15:02:00 Test Item Value Reference Range Interpretation Comments Sodium Lvl (test code = Sodium Lvl) 144.0 135-145 N [facility] HospitalEageilpCBABIFQYW2601-57-57 15:02:00 Test Item Value Reference Range Interpretation Comments Chloride Lvl (test code = Chloride Lvl) 109.0 95-109 N [facility] HospitalAxpqxwwDBZHTXIDL3665-78-64 15:02:00 Test Item Value Reference Range Interpretation Comments CO2 (test code = CO2) 24.0 24-32 N [facility] HospitalFonqbnrTVIYZLTWS4991-94-71 15:02:00 Test Item Value Reference Range Interpretation Comments Calcium Lvl (test code = Calcium Lvl) 7.8 8.5-10.5 L [facility]manBmcspzoKSRTOSKNTM4341-01-00 15:02:00 Test Item Value Reference Range Interpretation Comments Large Plt (test code = Slight *ABN*(01/29/2011 A Large Plt) 10:02:00) ?? [facility]manXmorsulZCRPUKHRDA4637-63-26 15:02:00 Test Item Value Reference Range Interpretation Comments Polychrom (test code = Slight (01/29/2011 N Polychrom) 10:02:00) ?? [facility]manAkcjbayGXCLVQOXIN8486-13-60 15:02:00 Test Item Value Reference Range Interpretation Comments Atypical Lymphs (test code = Atypical 0.0 N Lymphs) [facility]manBkonwxwYJZGACAMOD3928-40-35 15:02:00 Test Item Value Reference Range Interpretation Comments NRBC (test code = NRBC) 1.0 [facility]manRsjlchsYALXJFABWZ9392-82-91 15:02:00 Test Item Value Reference Range Interpretation Comments Segs (test code = Segs) 81.0 45.0-75.0 H [facility]manCjbupbqMEJAFCFJHU9416-09-17 15:02:00 Test Item Value Reference Range Interpretation Comments Lymphocytes (test code = Lymphocytes) 9.0 20.0-40.0 L [facility]manJpwcridSJRUBXBDYZ2828-13-13 15:02:00 Test Item Value Reference Range Interpretation Comments Monocytes (test code = Monocytes) 5.0 2.0-12.0 N [facility]manOmtcyoiAGBCSMFSNM0201-76-70 15:02:00 Test Item Value Reference Range Interpretation Comments Myelocytes (test code = Myelocytes) 1.0 H [facility]manNqgrdmkCKVSKIOFRN6151-00-43 15:02:00 Test Item Value Reference Range Interpretation Comments Metamyelocytes (test code 2.0 See_Comment H [ Automated message] = Metamyelocytes) The system which generated this result transmitted ref erence range: <=1.0. T he reference range was not used to int erpret this result as normal/abnormal . [facility]manAwsaukvDGCBCEOKKT1663-34-03 15:02:00 Test Item Value Reference Range Interpretation Comments Bands (test code = 2.0 See_Comment N [Automat ed message] The Bands) system which ge nerated this result transmit porsche reference range : <=11.0. The reference r evelyn was not used to interpr et this result as alexia l/abnormal. [facility]manAcfdkuxHOXUTIKVPE8789-58-27 15:02:00 Test Item Value Reference Range Interpretation Comments Monocytes # (test code 1.0 See_Comment H [Aut omated message] The = Monocytes #) system which generated this result tra nsmitted reference range : <=0.8. The reference r evelyn was not used to int erpret this result as normal/abnormal . [facility]manMgwrwzrJYLIJYHEFQ0897-44-81 15:02:00 Test Item Value Reference Range Interpretation Comments Lymphocytes # (test code = Lymphocytes 1.8 1.0-5.5 N #) [facility]manZemnfckLMDZYABYHX1458-51-18 15:02:00 Test Item Value Reference Range Interpretation Comments Segs-Bands # (test code = Segs-Bands #) 16.3 1.5-8.1 H [facility]manTykeqnxEOZWRSIORO6790-03-19 15:02:00 Test Item Value Reference Range Interpretation Comments MPV (test code = MPV) 9.4 7.4-10.4 N [facility]manVwkbrepXZBMRCTSKL8792-75-73 15:02:00 Test Item Value Reference Range Interpretation Comments Hct (test code = Hct) 33.9 36.0-48.0 L [facility]manNprdcepEELIOXXWES8979-20-24 15:02:00 Test Item Value Reference Range Interpretation Comments MCV (test code = MCV) 94.0 81.0-99.0 N [facility]manGvgouiiHUTZFHVFKN6491-42-93 15:02:00 Test Item Value Reference Range Interpretation Comments MCH (test code = MCH) 31.5 pg 27.0-31.0 H [facility]manXxcqmmxDEWFYYDACY9944-59-06 15:02:00 Test Item Value Reference Range Interpretation Comments MCHC (test code = MCHC) 33.6 32.0-36.0 N [facility]manYnmgiznBVKRGVDRAH6129-06-55 15:02:00 Test Item Value Reference Range Interpretation Comments RDW (test code = RDW) 16.1 11.5-14.5 H [facility]manZlndpxxNZDLBBBAXI6183-37-68 15:02:00 Test Item Value Reference Range Interpretation Comments Platelet (test code = Platelet) 178.0 133-450 N [facility]manKfkyvsuBEPKBNHLBD5007-97-67 15:02:00 Test Item Value Reference Range Interpretation Comments WBC (test code = WBC) 19.6 3.7-10.4 H [facility]manQdesvrzALAHVCAINX4584-52-63 15:02:00 Test Item Value Reference Range Interpretation Comments Hgb (test code = Hgb) 11.4 12.0-16.0 L [facility]manApohmfrYXRZCOAVMZ8739-62-58 15:02:00 Test Item Value Reference Range Interpretation Comments RBC (test code = RBC) 3.61 4.20-5.40 L [facility] HospitalCcfhdaiFOQDVWSHO6953-79-06 06:30:00 Test Item Value Reference Range Interpretation Comments AGAP (test code = AGAP) 14.2 10.0-20.0 N [facility] HospitalWitaphgEEBQKZRXR5431-44-02 06:30:00 Test Item Value Reference Range Interpretation Comments Chloride Lvl (test code = Chloride Lvl) 116.0 95-109 H [facility] HospitalXzhlrglMVIRODBYR9101-95-86 06:30:00 Test Item Value Reference Range Interpretation Comments Sodium Lvl (test code = Sodium Lvl) 152.0 135-145 H [facility] HospitalGmqfmtePWUIJPHTA4261-00-33 06:30:00 Test Item Value Reference Range Interpretation Comments Potassium Lvl (test code = Potassium 3.2 3.5-5.1 L Lvl) [facility] HospitalQyyswgjUGPZLFGCM1366-83-00 06:30:00 Test Item Value Reference Range Interpretation Comments CO2 (test code = CO2) 25.0 24-32 N [facility] HospitalJtdthrvGWAXPYAZI9972-84-93 06:30:00 Test Item Value Reference Range Interpretation Comments Calcium Lvl (test code = Calcium Lvl) 7.5 8.5-10.5 L [facility] HospitalIwxehylSPOFJSXNI3234-97-40 06:30:00 Test Item Value Reference Range Interpretation Comments Glucose Lvl (test code = Glucose Lvl) 57.0 [facility] HospitalOnugnjjBWYACGOVK7202-20-69 06:30:00 Test Item Value Reference Range Interpretation Comments BUN (test code = BUN) 21.0 7-22 N [facility] HospitalCytlgknYSJAERBMB6169-35-88 06:30:00 Test Item Value Reference Range Interpretation Comments Creatinine Lvl (test code = Creatinine 0.7 0.5-1.4 N Lvl) [facility] HospitalVoztmxtHQCNCORYE0579-60-26 06:30:00 Test Item Value Reference Range Interpretation Comments Phosphorus (test code = Phosphorus) 3.2 2.5-4.5 N [facility] HospitalSqbzdqeHZHZMTJNO2526-96-40 06:30:00 Test Item Value Reference Range Interpretation Comments Magnesium Lvl (test code = Magnesium 2.2 1.8-2.4 N Lvl) [facility] HospitalFpgnptrUNTBLGZWI6431-70-59 06:30:00 Test Item Value Reference Range Interpretation Comments Ca Norm (test code = Ca Norm) 1.09 1.16-1.30 L [facility] HospitalGsmwfntXQAOZHRAC3205-54-27 06:30:00 Test Item Value Reference Range Interpretation Comments Ca Ion (test code = Ca Ion) 1.06 1.16-1.30 L [facility] HospitalLvrxcpaOPMDVZYFH0857-29-40 06:30:00 Test Item Value Reference Range Interpretation Comments Ca Norm mgdL (test code = Ca Norm mgdL) 4.36 4.65-5.20 L [facility] HospitalIdxjzxnQONQBRZCJ7274-43-84 06:30:00 Test Item Value Reference Range Interpretation Comments Ca Ion mgdL (test code = Ca Ion mgdL) 4.24 4.65-5.20 L [facility]manEgfxpqtGSPPDMVWQQ0690-87-94 06:30:00 Test Item Value Reference Range Interpretation Comments Platelet (test code = Platelet) 144.0 133-450 N [facility]manFytrywuLXTIHIUYQF8279-87-70 06:30:00 Test Item Value Reference Range Interpretation Comments MPV (test code = MPV) 10.4 7.4-10.4 N [facility]manMmsozfxMUKKYNZBNT9795-04-17 06:30:00 Test Item Value Reference Range Interpretation Comments MCH (test code = MCH) 31.1 pg 27.0-31.0 H [facility]manPsqrqpcBDHRJCHPYL8222-43-98 06:30:00 Test Item Value Reference Range Interpretation Comments MCHC (test code = MCHC) 33.3 32.0-36.0 N [facility]manRbngpovOMIASNOILY3104-36-67 06:30:00 Test Item Value Reference Range Interpretation Comments RDW (test code = RDW) 16.0 11.5-14.5 H [facility]manFydifbbGCAXJNRCXR7727-18-79 06:30:00 Test Item Value Reference Range Interpretation Comments Hct (test code = Hct) 32.3 36.0-48.0 L [facility]manJnkundiJYILWMNGLA5586-69-73 06:30:00 Test Item Value Reference Range Interpretation Comments MCV (test code = MCV) 93.5 81.0-99.0 N [facility]manYvfhwciKJGTHVXIJH7953-14-25 06:30:00 Test Item Value Reference Range Interpretation Comments RBC (test code = RBC) 3.45 4.20-5.40 L [facility]manIaintwfRQHYRDNTMG2644-11-45 06:30:00 Test Item Value Reference Range Interpretation Comments Hgb (test code = Hgb) 10.7 12.0-16.0 L [facility]manWinuknwDXTKNIRULS2968-31-27 06:30:00 Test Item Value Reference Range Interpretation Comments WBC (test code = WBC) 20.1 3.7-10.4 H [facility]manSvvwezlVOPAMGMBGB3323-66-06 06:30:00 Test Item Value Reference Range Interpretation Comments Eosinophils (test code = 0.0 See_Comment N [A utomated message] The Eosinophils) system which ge nerated this result tra nsmitted reference range : <=4.0. The reference r evelyn was not used to int erpret this result as normal/abnormal . [facility]manZuveyjoYAIQVQFUQW9693-77-38 06:30:00 Test Item Value Reference Range Interpretation Comments Monocytes (test code = Monocytes) 4.1 2.0-12.0 N [facility]manZzbokeqUVZJSPINQY1501-75-34 06:30:00 Test Item Value Reference Range Interpretation Comments Segs-Bands # (test code = Segs-Bands #) 18.0 1.5-8.1 H [facility]manHgwsvxbSGVAPCPADP3293-09-78 06:30:00 Test Item Value Reference Range Interpretation Comments Basophils (test code = 0.0 See_Comment N [Aut omated message] The Basophils) system which ge nerated this result tra nsmitted reference range : <=1.0. The reference r evelyn was not used to int erpret this result as normal/abnormal . [facility]manEpgdxtlJOWUDZAVRV2212-07-22 06:30:00 Test Item Value Reference Range Interpretation Comments Lymphocytes (test code = Lymphocytes) 6.6 20.0-40.0 L [facility]manKwlrmkiKZWKGNQJYY4799-54-64 06:30:00 Test Item Value Reference Range Interpretation Comments Basophils # (test code 0.0 See_Comment N [Aut omated message] The = Basophils #) system which generated this result tra nsmitted reference range : <=0.2. The reference r evelyn was not used to int erpret this result as normal/abnormal . [facility]manPlgkfrnUBMKIRUOTG3708-76-22 06:30:00 Test Item Value Reference Range Interpretation Comments Eosinophils # (test code 0.0 See_Comment N [A utomated message] The = Eosinophils #) system whic h generated this result tra nsmitted reference range : <=0.5. The reference r evelyn was not used to int erpret this result as normal/abnormal . [facility]oosmpnJBJIDLFATP4520-[facility]-09 06:30:00 Test Item Value Reference Range Interpretation Comments Monocytes # (test code 0.8 See_Comment N [Aut omated message] The = Monocytes #) system which generated this result tra nsmitted reference range : <=0.8. The reference r evelyn was not used to int erpret this result as normal/abnormal . [facility]ZccddnrKFBZLUOMVS0398-81-80 06:30:00 Test Item Value Reference Range Interpretation Comments Lymphocytes # (test code = Lymphocytes 1.3 1.0-5.5 N #) [facility]MfmxtneUGUQOUDBGR2739-50-24 06:30:00 Test Item Value Reference Range Interpretation Comments Segs (test code = Segs) 89.3 45.0-75.0 H [facility] HospitalQobikkeCZVDZZNWR4639-28-97 09:07:00 Test Item Value Reference Range Interpretation Comments Osmolality (test code = Osmolality) 317.0 280-300 H [facility] HospitalFluqhoxJHEIJRYAZ0736-14-45 09:07:00 Test Item Value Reference Range Interpretation Comments POC A pH (test code = POC A pH) 7.56 1 7.35-7.45 H [facility] HospitalHvbofslMYZOAZNVE6945-21-24 09:07:00 Test Item Value Reference Range Interpretation Comments POC A PO2 (test code = POC A PO2) 150.0 80-100 H [facility] HospitalTlfepmaTTDHZSSYY1911-13-75 09:07:00 Test Item Value Reference Range Interpretation Comments POC A Source (test code = POC A Source) ART [facility] HospitalOwxjkfxBFWTRTROE5915-38-04 09:07:00 Test Item Value Reference Range Interpretation Comments POC A Temp (test code = POC A Temp) 37.0 [facility] HospitalChildseXLTGECJAG7687-59-12 09:07:00 Test Item Value Reference Range Interpretation Comments POC A BE (test code = 4.0 See_Comment H [Auto mated message] The POC A BE) system which ge nerated this result transmit porsche reference range : <=2. The reference range was not used to interpr et this result as alexia l/abnormal. [facility] HospitalHmdqjriDUUMHZINC2156-06-92 09:07:00 Test Item Value Reference Range Interpretation Comments POC A O2 Sat (test code = POC A O2 Sat) 100.0 95.0-100.0 N [facility] HospitalXzcqhlpOTPPYAWOF2358-26-31 09:07:00 Test Item Value Reference Range Interpretation Comments POC A HCO3 (test code = POC A HCO3) 25.0 22-26 N [facility] HospitalAcdjsvbMRXCRRYTM0286-08-29 09:07:00 Test Item Value Reference Range Interpretation Comments POC A PCO2 (test code = POC A PCO2) 28.0 35-45 A [facility] HospitalCrcqmelVZIBLGRJQ9341-25-98 05:14:00 Test Item Value Reference Range Interpretation Comments Osmolality (test code = Osmolality) 305.0 280-300 H [facility]ZlfuodlBPYNIFHNYY9482-13-13 05:14:00 Test Item Value Reference Range Interpretation Comments PTT (test code = PTT) 25.2 s 22.9-35.8 N [facility]QariykeXTFZQVGOOV0422-53-64 05:14:00 Test Item Value Reference Range Interpretation Comments PT (test code = PT) 15.8 s 12.0-14.7 H [facility]manHkrbtezUAEIXSNNBA5207-16-09 05:14:00 Test Item Value Reference Range Interpretation Comments INR (test code = INR) 1.26 1 0.85-1.17 H [facility]manOpzofcoCBKSZKROAJ8731-47-98 05:14:00 Test Item Value Reference Range Interpretation Comments Eosinophils (test code = 0.0 See_Comment N [A utomated message] The Eosinophils) system which ge nerated this result tra nsmitted reference range : <=4.0. The reference r evelyn was not used to int erpret this result as normal/abnormal . [facility]manDsdxfxdVKWCAFHHJT4220-14-51 05:14:00 Test Item Value Reference Range Interpretation Comments Basophils (test code = 0.2 See_Comment N [Aut omated message] The Basophils) system which ge nerated this result tra nsmitted reference range : <=1.0. The reference r evelyn was not used to int erpret this result as normal/abnormal . [facility]manKdxfxjjICWVUCKDCE0322-14-37 05:14:00 Test Item Value Reference Range Interpretation Comments Eosinophils # (test code 0.0 See_Comment N [A utomated message] The = Eosinophils #) system [facility] generated this result tra nsmitted reference range : <=0.5. The reference r evelyn was not used to int erpret this result as normal/abnormal . [facility]manFuddnikPQHBHKXOXA0112-99-69 05:14:00 Test Item Value Reference Range Interpretation Comments Basophils # (test code 0.0 See_Comment N [Aut omated message] The = Basophils #) system which generated this result tra nsmitted reference range : <=0.2. The reference r evelyn was not used to int erpret this result as normal/abnormal . [facility] HospitalYladqjmDHVUAUCRT1291-72-75 20:09:00 Test Item Value Reference Range Interpretation Comments Osmolality (test code = Osmolality) 306.0 280-300 H [facility]manFwapicaJXIHQRQLTS5708-76-60 20:09:00 Test Item Value Reference Range Interpretation Comments Basophils # (test code 0.0 See_Comment N [Aut omated message] The = Basophils #) system which generated this result tra nsmitted reference range : <=0.2. The reference r evelyn was not used to int erpret this result as normal/abnormal . [facility]manVeplaiuLKXREVJNPH5107-05-68 20:09:00 Test Item Value Reference Range Interpretation Comments Eosinophils (test code = 0.0 See_Comment N [A utomated message] The Eosinophils) system which ge nerated this result tra nsmitted reference range : <=4.0. The reference r evelyn was not used to int erpret this result as normal/abnormal . [facility]manTlpwtfyQMGBGVKZPQ0709-73-52 20:09:00 Test Item Value Reference Range Interpretation Comments Eosinophils # (test code 0.0 See_Comment N [A utomated message] The = Eosinophils #) system [facility] [place] generated this result tra nsmitted reference range : <=0.5. The reference r evelyn was not used to int erpret this result as normal/abnormal . [facility]CakcjxlDBCUEBGCVN2040-12-18 20:09:00 Test Item Value Reference Range Interpretation Comments Basophils (test code = 0.1 See_Comment N [Aut omated message] The Basophils) system which ge nerated this result tra nsmitted reference range : <=1.0. The reference r evelyn was not used to int erpret this result as normal/abnormal . [facility]manKumvxwuAMTDOPGNEW4301-92-51 20:09:00 Test Item Value Reference Range Interpretation Comments PTT (test code = PTT) 29.8 s 22.9-35.8 N [facility]manLzovfzfMCHVIDDYOC9304-16-41 20:09:00 Test Item Value Reference Range Interpretation Comments PT (test code = PT) 15.4 s 12.0-14.7 H [facility]manWwzpptoYLIPSKVWMC8569-14-01 20:09:00 Test Item Value Reference Range Interpretation Comments INR (test code = INR) 1.22 1 0.85-1.17 H [facility] HospitalJmvucbzDFRSBINDE7616-24-70 18:43:00 Test Item Value Reference Range Interpretation Comments POC A Glu (test code = POC A Glu) 108.0 65-110 N [facility] HospitalUjsjczmRYATAOYVG0491-67-62 18:43:00 Test Item Value Reference Range Interpretation Comments POC A LA (test code = POC A LA) 0.8 0.5-2.2 N [facility] HospitalYsbbejcWTJSTZVRQ2672-79-23 18:43:00 Test Item Value Reference Range Interpretation Comments POC A Ca Ion (test code = POC A Ca Ion) 1.17 1.16-1.30 N [facility] HospitalHscbbkmGRALCGNRT6961-96-35 18:43:00 Test Item Value Reference Range Interpretation Comments POC A K (test code = POC A K) 3.6 3.5-5.1 N [facility] HospitalGakttlyYSTOFZFKL1425-12-05 18:43:00 Test Item Value Reference Range Interpretation Comments POC A Na (test code = POC A Na) 140.0 135-145 N [facility] HospitalPjswhznEMBXNBZQH2945-37-50 18:43:00 Test Item Value Reference Range Interpretation Comments POC A PO2 (test code = POC A PO2) 80.0 80-100 N [facility] HospitalXowrreuLZQDPZCHH3857-87-36 18:43:00 Test Item Value Reference Range Interpretation Comments POC A PCO2 (test code = POC A PCO2) 40.0 35-45 N [facility] HospitalPbnudifZXZRXOKCC3448-84-52 18:43:00 Test Item Value Reference Range Interpretation Comments POC A Source (test code = POC A Source) ART [facility] HospitalLsdgvcbIOHQUVWEF2666-87-56 18:43:00 Test Item Value Reference Range Interpretation Comments POC A Temp (test code = POC A Temp) 37.0 [facility] HospitalXdtnbvqSJSDQTHUB1977-59-98 18:43:00 Test Item Value Reference Range Interpretation Comments POC A pH (test code = POC A pH) 7.4 1 7.35-7.45 N [facility] HospitalSvaccsjISKLBCTUC8452-16-69 18:43:00 Test Item Value Reference Range Interpretation Comments POC A Hct (test code = POC A Hct) 34.0 36.0-48.0 L [facility] HospitalAcctpsqZMJAZRGLC0729-47-54 18:43:00 Test Item Value Reference Range Interpretation Comments POC A BE (test code = 0.0 See_Comment N [Auto mated message] The POC A BE) system which ge nerated this result transmit porsche reference range : <=2. The reference range was not used to interpr et this result as alexia l/abnormal. [facility] HospitalUjjebdoWLRLQUOFC0834-15-21 18:43:00 Test Item Value Reference Range Interpretation Comments POC A O2 Sat (test code = POC A O2 Sat) 96.0 95.0-100.0 N [facility] HospitalQwjbszwIOJEXRLER5721-48-83 18:43:00 Test Item Value Reference Range Interpretation Comments POC A HCO3 (test code = POC A HCO3) 25.0 22-26 N [facility] HospitalVdmwnlmOULODKIEF2090-30-87 17:57:00 Test Item Value Reference Range Interpretation Comments POC A O2 Sat (test code = POC A O2 Sat) 96.0 95.0-100.0 N [facility] HospitalZrwafhlWQXXERTIN5506-39-44 17:57:00 Test Item Value Reference Range Interpretation Comments POC A K (test code = POC A K) 3.6 3.5-5.1 N [facility] HospitalVsqailkPOWJFWAPR7172-88-79 17:57:00 Test Item Value Reference Range Interpretation Comments POC A LA (test code = POC A LA) 0.8 0.5-2.2 N [facility] HospitalXurqsnsXJOCLAZQT4575-10-84 17:57:00 Test Item Value Reference Range Interpretation Comments POC A Glu (test code = POC A Glu) 113.0 65-110 H [facility] HospitalWoyqofsXJEYMEWZY4034-44-36 17:57:00 Test Item Value Reference Range Interpretation Comments POC A Source (test code = POC A Source) ART [facility] HospitalLthlqczUEYLIWGZH4464-92-07 17:57:00 Test Item Value Reference Range Interpretation Comments POC A Temp (test code = POC A Temp) 37.0 [facility] HospitalOfrwewjIUFDFULHJ7352-54-88 17:57:00 Test Item Value Reference Range Interpretation Comments POC A HCO3 (test code = POC A HCO3) 25.0 22-26 N [facility] HospitalTrsbbcoYEAMLDZVE9536-11-88 17:57:00 Test Item Value Reference Range Interpretation Comments POC A PO2 (test code = POC A PO2) 79.0 80-100 L [facility] HospitalSeipipyYRSQKDIVR7294-06-05 17:57:00 Test Item Value Reference Range Interpretation Comments POC A PCO2 (test code = POC A PCO2) 38.0 35-45 N [facility] HospitalRulyfwtOVJJCCFUL8049-68-99 17:57:00 Test Item Value Reference Range Interpretation Comments POC A pH (test code = POC A pH) 7.42 1 7.35-7.45 N [facility] HospitalSepntjxFBRJVTWMB5671-17-37 17:57:00 Test Item Value Reference Range Interpretation Comments POC A BE (test code = 0.0 See_Comment N [Auto mated message] The POC A BE) system which ge nerated this result transmit porsche reference range : <=2. The reference range was not used to interpr et this result as alexia l/abnormal. [facility] HospitalCjovmusVSEIIXXKL8221-43-04 17:57:00 Test Item Value Reference Range Interpretation Comments POC A Ca Ion (test code = POC A Ca Ion) 1.22 1.16-1.30 N [facility] HospitalMrcrihmLZOFFPJKG1141-80-30 17:57:00 Test Item Value Reference Range Interpretation Comments POC A Na (test code = POC A Na) 138.0 135-145 N [facility] HospitalEkscgyvJAKNMCOBO3414-02-88 17:57:00 Test Item Value Reference Range Interpretation Comments POC A Hct (test code = POC A Hct) 36.0 36.0-48.0 N [facility] HospitalMurencsKWBWGWZSY8169-32-75 17:01:00 Test Item Value Reference Range Interpretation Comments POC A Hct (test code = POC A Hct) 41.0 36.0-48.0 N [facility] NmzdshqFFLMYGDFQ7325-92-25 17:01:00 Test Item Value Reference Range Interpretation Comments POC A Na (test code = POC A Na) 140.0 135-145 N [facility] VjmymfqJOURCDWHN3876-17-98 17:01:00 Test Item Value Reference Range Interpretation Comments POC A Ca Ion (test code = POC A Ca Ion) 1.05 1.16-1.30 L [facility] TarbuffHAKKRFNMZ0381-51-55 17:01:00 Test Item Value Reference Range Interpretation Comments POC A K (test code = POC A K) 3.6 3.5-5.1 N [facility] FtqdxrvZRCXQREUH3202-20-77 17:01:00 Test Item Value Reference Range Interpretation Comments POC A LA (test code = POC A LA) 0.8 0.5-2.2 N [facility] XapclhwOFGYRENSP7217-67-95 17:01:00 Test Item Value Reference Range Interpretation Comments POC A Glu (test code = POC A Glu) 107.0 65-110 N [employer] QSPNRKE4585-18-75 14:00:00 Test Item Value Reference Range Interpretation Comments Antibody Scrn (test Negative (01/26/2011 N code = Antibody Scrn) 09:00:00) ?? [employer] HLOGDEQ2245-49-18 14:00:00 Test Item Value Reference Range Interpretation Comments ABO/Rh (test code = ABO/Rh) O NEG [facility] WpvnygpVUTCDFMYUN3884-21-81 05:15:00 Test Item Value Reference Range Interpretation Comments PTT (test code = PTT) 28.2 s 22.9-35.8 N [facility] YjdhywnPUQRMXAKGH7349-94-09 05:15:00 Test Item Value Reference Range Interpretation Comments INR (test code = INR) 1.24 1 0.85-1.17 H [facility] OyjvxhzPMUEKOVYFY9507-81-96 05:15:00 Test Item Value Reference Range Interpretation Comments PT (test code = PT) 15.6 s 12.0-14.7 H [facility] IoegmzfDYQTPVESX7518-03-46 12:56:00 Test Item Value Reference Range Interpretation Comments CK MB Index (test 0.4 1 See_Comment N [Automate d message] The code = CK MB Index) system w ALTHIA generated this result transmit porsche reference range : <=2.5. The reference range was not used to interpr et this result as alexia l/abnormal. [facility] HospitalFgnutqwBTXRDOKJX5180-23-26 12:56:00 Test Item Value Reference Range Interpretation Comments CK MB (test code = CK MB) 1.1 0.5-3.6 N [facility] HospitalNqrsgfhFMGXSAEPI0225-12-49 12:56:00 Test Item Value Reference Range Interpretation Comments Myoglobin (test code = Myoglobin) 141.0 25-72 H [facility] HospitalWxqicvoXXXIMNRZP9204-40-92 12:56:00 Test Item Value Reference Range Interpretation Comments Troponin-T (test code no gt See_Comment N [Auto mated message] The = Troponin-T) system which g enerated this result transmit porsche reference range : <=0.100. The reference r evelyn was not used to interpr et this result as alexia l/abnormal. [facility] HospitalRdrrvkvSMHOWTWUU7928-68-92 12:56:00 Test Item Value Reference Range Interpretation Comments Total CK (test code = Total CK) 256.0 12-191 H [facility] HospitalYdmbmsnTYPZNPYYT6062-63-26 05:15:00 Test Item Value Reference Range Interpretation Comments Total CK (test code = Total CK) 219.0 12-191 H [facility] HospitalTumpuflBNLMCENNM0275-56-61 05:15:00 Test Item Value Reference Range Interpretation Comments Troponin-T (test code no gt See_Comment N [Auto mated message] The = Troponin-T) system which g enerated this result transmit porsche reference range : <=0.100. The reference r evelyn was not used to interpr et this result as alexia l/abnormal. [facility]KlbigzjPWTGEFAMI3736-33-30 05:15:00 Test Item Value Reference Range Interpretation Comments CK MB Index (test 0.7 1 See_Comment N [Automate d message] The code = CK MB Index) system w ALTHIA generated this result transmit porsche reference range : <=2.5. The reference range was not used to interpr et this result as alexia l/abnormal. [facility] HospitalYmafzeeCPEPUWLRF3772-34-20 05:15:00 Test Item Value Reference Range Interpretation Comments CK MB (test code = CK MB) 1.5 0.5-3.6 N [facility]aleQhhtjymYJAAREUOT3297-11-87 00:16:00 Test Item Value Reference Range Interpretation Comments Lactic Acid Lvl (test code = Lactic 2.4 0.5-2.2 H Acid Lvl) [facility]FntfsxkHZUHBOCFGV5213-31-58 00:16:00 Test Item Value Reference Range Interpretation Comments Target Cell (test code Slight A = Target Cell) *ABN*(01/24/2011 19:16:00) ?? [facility] HospitalOpfzcipMZFXYIGHFD6131-16-50 00:16:00 Test Item Value Reference Range Interpretation Comments Bands (test code = 2.0 See_Comment N [Automat ed message] The Bands) system which ge nerated this result transmit porsche reference range : <=11.0. The reference r evelyn was not used to interpr et this result as alexia l/abnormal. [facility]CmcchsjXEZTPPXNCZ1383-10-07 00:16:00 Test Item Value Reference Range Interpretation Comments Plt Morph (test code = Normal (01/24/2011 N Plt Morph) 19:16:00) ?? [facility]aleOdktzsrWDATJXJUM8145-45-99 20:01:00 Test Item Value Reference Range Interpretation Comments Troponin-T (test code no gt See_Comment N [Auto mated message] The = Troponin-T) system which g enerated this result transmit porsche reference range : <=0.100. The reference r evelyn was not used to interpr et this result as alexia l/abnormal. [facility]aleQrjnnaiMCVOIJOCT7540-17-47 20:01:00 Test Item Value Reference Range Interpretation Comments Myoglobin (test code = Myoglobin) 60.0 25-72 N [facility]aleZktzxqdHTVAFDUCS2667-84-78 20:01:00 Test Item Value Reference Range Interpretation Comments Total CK (test code = Total CK) 34.0 12-191 N [facility] IFKVLFJ7029-13-95 08:15:00 Test Item Value Reference Range Interpretation Comments Antibody Scrn (test Negative (01/24/2011 N code = Antibody Scrn) 03:15:00) ?? [facility] [employer] WYFVZHS2807-91-37 08:15:00 Test Item Value Reference Range Interpretation Comments ABO/Rh (test code = ABO/Rh) O [facility] RVWZBHQ7056-29-92 08:15:00 Test Item Value Reference Range Interpretation Comments Platelet product (test Product available N code = Platelet (01/24/2011 03:15:00) product) ?? [facility] HospitalWineNiceOOD BANK QHLUAVS9635-55-75 08:15:00 Test Item Value Reference Range Interpretation Comments RBC product (test code Product available N = RBC product) (01/24/2011 03:15:00) ?? [facility]aleWfktjyuDSWCCGTOH2736-87-39 16:30:00 Test Item Value Reference Range Interpretation Comments CK MB Index (test 1.2 1 See_Comment N [Automate d message] The code = CK MB Index) system w hich generated this result transmit porsche reference range : <=2.5. The reference range was not used to interpr et this result as alexia l/abnormal. [facility] HospitalEgemoavNVPFNVKIL0232-73-48 16:30:00 Test Item Value Reference Range Interpretation Comments CK MB (test code = CK MB) 1.2 0.5-3.6 N [facility]aleOayczriRFOBRFJDC2788-92-74 16:30:00 Test Item Value Reference Range Interpretation Comments Hgb A1C (test code = Hgb A1C) 8.7 [facility] HospitalJsbzymbHDMZUHUNG2714-13-89 16:30:00 Test Item Value Reference Range Interpretation Comments Troponin-I (test code no gt See_Comment N [Auto mated message] The = Troponin-I) system which g enerated this result transmit porsche reference range : <=0.40. The reference r evelyn was not used to interpr et this result as alexia l/abnormal. [facility] HospitalSjqhbuhTLZUEQSDXG8606-89-62 10:29:00 Test Item Value Reference Range Interpretation Comments UA Ketones (test code = UA Ketones) TR [facility] HospitalUdzgfagGESIYCSDGM2866-14-19 10:29:00 Test Item Value Reference Range Interpretation Comments UA Urobilinogen (test code *NA*(01/23/2011 0.1-1.0 = UA Urobilinogen) 05:29:00) ?? [facility]aleLuhufykRXCMHIVGSO8269-27-25 10:29:00 Test Item Value Reference Range Interpretation Comments UA Sq Epi (test code Occasional /LPF = UA Sq Epi) *NA*(01/23/2011 05:29:00) ?? [facility] HospitalAxassttSYPTJTBIFQ3999-75-99 10:29:00 Test Item Value Reference Range Interpretation Comments UA WBC (test code = <1.0 See_Comment N [Automa porsche message] The UA WBC) system which ge nerated this result transmit porsche reference range : <=5. The reference range was not used to interpr et this result as alexia l/abnormal. [facility]PrpckjmJMVATRWAEK6000-20-01 10:29:00 Test Item Value Reference Range Interpretation Comments UA Mucus (test code = Few /LPF UA Mucus) *NA*(01/23/2011 05:29:00) ?? [facility] HospitalYhatfogUTSQLQLYYG4547-36-04 10:29:00 Test Item Value Reference Range Interpretation Comments UA RBC (test code = <1.0 See_Comment N [Automa porsche message] The UA RBC) system which ge nerated this result transmit porsche reference range : <=2. The reference range was not used to interpr et this result as alexia l/abnormal. [facility] HospitalSealoeoUYTBAUVYFS2214-77-73 10:29:00 Test Item Value Reference Range Interpretation Comments UA Protein (test code Negative mg/dL N = UA Protein) (01/23/2011 05:29:00) ?? [facility] HospitalOpbslloRBKMWEOBSL1567-00-13 10:29:00 Test Item Value Reference Range Interpretation Comments UA Nitrite (test code Negative (01/23/2011 N = UA Nitrite) 05:29:00) ?? [facility] HospitalMeaayblZNTGPMAILQ5774-64-03 10:29:00 Test Item Value Reference Range Interpretation Comments UA Leuk Est (test Negative (01/23/2011 N code = UA Leuk Est) 05:29:00) ?? [facility] HospitalRfggbacNHXVIFHKAD3552-94-60 10:29:00 Test Item Value Reference Range Interpretation Comments UA Bili (test code = Negative *NA*(01/23/2011 UA Bili) 05:29:00) ?? [facility] HospitalBzlwkdoQXWCLQFPLZ9563-24-60 10:29:00 Test Item Value Reference Range Interpretation Comments UA Glucose (test code = 150 mg/dL A UA Glucose) *ABN*(01/23/2011 05:29:00) ?? [facility] HospitalBcsxsbnFAQLCFDJAR0452-59-33 10:29:00 Test Item Value Reference Range Interpretation Comments UA Blood (test code = Negative (01/23/2011 N UA Blood) 05:29:00) ?? [facility] HospitalXifeghyJOEGUUQORG9245-48-15 10:29:00 Test Item Value Reference Range Interpretation Comments UA pH (test code = UA pH) 5.0 1 5.0-8.[address] [facility] HospitalNwegvssQVYXSFYIZA6276-67-81 10:29:00 Test Item Value Reference Range Interpretation Comments UA Spec Grav (test code = UA Spec 1.01 [address] [facility] HospitalIexbxxjCXCXQLJWOE8301-47-99 10:29:00 Test Item Value Reference Range Interpretation Comments UA Turbidity (test code = Clear (01/23/2011 N UA Turbidity) 05:29:00) ?? [facility] HospitalTkqqtieDOTMHDWMOZ2628-23-97 10:29:00 Test Item Value Reference Range Interpretation Comments UA Color (test code = Yellow *NA*(01/23/2011 UA Color) 05:29:00) ?? [facility] HospitalBACTERIAL - SIDJNBWV7572-32-55 10:00:00 Test Item Value Reference Range Interpretation Comments MRSA by PCR (test Negative 1(01/23/2011 N code = MRSA by PCR) 05:00:00) ?? [facility] HospitalZsicisoCjvjhgslgkdg8023-88-11 10:00:00 Test Item Value Reference Range Interpretation Comments Culture: Resistant Acinetobacter Screen (test code = Culture: Resistant Acinetobacter Screen) [facility] [facility]
[2021-07-12 15:59] LABS: Protime INR 0.99
[2021-07-12] MEDS ORDERED: Meropenem 1000 MG/VIAL IV ONE (15:59)
[2021-07-12] MEDS ORDERED: FUROSEMIDE 40 MG/4 ML VIAL ONE (16:00)
[2021-07-12] MEDS ORDERED: NA CHLORIDE 0.9% 100 ML IV ONE (16:00)
[2021-07-12 16:25] LABS: Albumin 2.7 g/dL (3.4-5.0); Bilirubin Direct 0.1 mg/dL (0-0.2); Bilirubin Total 0.5 mg/dL (0.2-1.0); Protein, Total 6.9 g/dL (6.4-8.2); Troponin High Sensitivity 29.5 pg/mL (<58.9)
[2021-07-12 16:26] LABS: Blood Gas Oxyhemoglobin 95.6 % (94-97); Blood O2 Saturation 97.6 % (92-98.5)
[2021-07-12 16:26] LABS: Magnesium 2.1 mg/dL (1.8-2.4); Potassium 4.7 mmol/L (3.5-5.1)
[2021-07-12 16:41] LABS: Absolute Lymphocytes (CBC) 1.2 K/uL (0.7-4.9); Hematocrit 52.7 % (36.0-45.0); Lymphocytes % 8.3 % (15.3-44.8); MPV 10.4 fL (7.6-11.3); RBC Red Blood Cell Count 5.21 M/uL (3.86-4.86)
[2021-07-12 16:52] LABS: SARS-COV-2 RT PCR NEGATIVE (NEGATIVE)
[2021-07-12 17:01] LABS: Urine Blood 1+ (Negative); Urine Glucose Negative (Negative); Urine Protein Negative (Negative)
--- NOTE | 2021-07-12 17:14 | RAD REPORT ---
EXAM DESCRIPTION: RAD - Chest Single View - 07/12/2021 4:50 pm CLINICAL HISTORY: SOB COMPARISON: Portable 03/02/2021 TECHNIQUE: AP portable chest image was obtained 07/12/2021 4:50 pm . FINDINGS: Lung volumes are low. Patient is significantly rotated. No peripheral mass or consolidatio n. No failure or volume overload seen. Interstitial pattern is not clearly different from comparison. Left-sided Port-A-Cath is in place. Heart and vasculature are normal. No measurable pleural effusion and no pneumothorax. No acute bony abnormality seen. No acute aortic findings suspected. IMPRESSION: Limited study without acute cardiopulmonary finding. No significant change from comparison study.
[2021-07-12 17:46] LABS: Blood Morphology Comment NOT SEEN (NOT SEEN); Platelet Estimate DECR; White Blood Cell Scan OK (OK)
[2021-07-12 18:10] LABS: Urine Bacteria >50 /HPF (<20)
[2021-07-12] MEDS ORDERED: NA CHLORIDE 0.9% 500 ML ONE ×2 (18:41→20:05)
--- NOTE | 2021-07-12 19:53 | ER ---
Nurse's Notes [facility] Name: Franci Lange Age: 76 yrs Sex: Female : 1945 Arrival Date: 07/12/2021 Time: 15:08 Bed 25 Private MD: Diagnosis: UTI/ Urinary tract infection, site not specified;Acute respiratory failure with hypoxia Presentation: 07/12 15:08 Coronavirus screen: Client presents with at least one sign or symptom that may indicate ss coronavirus-19. Ebola Screen: Patient denies exposure to infectious person. Patient denies travel to an Ebola-affected area in the 21 days before illness onset. Initial Sepsis Screen:. Risk Assessment: Do you want to hurt yourself or someone else? Patient reports no desire to harm self or others. Onset of symptoms was July 11, 2021. Transition of care: patient was received from another setting of care (ambulatory specialty care practice), [facility]. 15:08 Acuity: JAY 2 15:27 Chief complaint: EMS states: AMS since yesterday, Low O2 today 70-72% at alf. ss Initial Sepsis Screen: Does the patient meet any 2 criteria? RR > 20 per min. HR > 90 bpm. Does the patient have a suspected source of infection? Yes: Productive cough/pneumonia. 15:27 Method Of Arrival: EMS: [facility] Triage Assessment: 17:13 General: Appears uncomfortable. Respiratory: Reports shortness of breath cough that is eo2 Onset: The symptoms/episode began/occurred at an unknown time. the patient has severe shortness of breath. Historical: - Allergies: 15:11 Aspirin; ss 15:11 cefepime; ss 15:11 CEPHALOSPORINS; ss 15:11 Ciprofloxacin; ss 15:11 Cortisone; ss 15:11 Cortizone-10; ss 15:11 Erythromycin; ss 15:11 IVIG; ss 15:11 PENICILLINS; ss 15:11 Phenobarbital; ss 15:11 Tape; - Home Meds: 17:13 amlodipine 10 mg tab 1 tab once daily [Active]; azathioprine 50 mg Oral tab 1 tab 2 eo2 times per day [Active]; clonazepam 0.5 mg Oral tab 1 tab daily [Active]; furosemide 20 mg Oral tab 1 tab nightly [Active]; Klor-Con 10 10 mEq Oral TbER 1 tab 2 times per day [Active]; Levemir 100 unit/mL subcutaneous soln 25 unit nightly [Active]; levothyroxine 88 mcg tab 1 tab once daily [Active]; Novolog 10 units Sub-Q soln before meals [Active]; potassium chloride 10 mEq Oral cpER 1 cap 3 times per day [Active]; prednisone 20 mg Oral tab 1 tab once daily [Active]; pyridostigmine bromide 60 mg Oral tab 1 tab 3 times per day [Active]; ramipril 2.5 mg Oral cap 1 cap once daily [Active]; rosuvastatin 20 mg Oral tab 1 tab nightly [Active]; sertraline 25 mg Oral tab 1 tab once daily [Active]; sulfamethoxazole-trimethoprim Oral [Active]; - PMHx: 15:11 CHF; Diabetes - IDDM; Depression; High Cholesterol; Myasthenia Gravis; Ankylosing ss Spondylitis; Dementia; Anxiety; Myocardial infarction; Osteoporosis; Hypothyroidism; Hypertension; - Immunization history:: unknown. - Social history:: Smoking status: unknown. Screenin:20 Abuse screen: unable to assess. Nutritional screening: unable to assess d/t mentation. eo2 Tuberculosis screening: unable to assess. Fall Risk Secondary diagnosis (15 points) IV access (20 points). Gait- Impaired (20 pts.). Mental Status-. Sepsis Screening: . Infection: SIRS - Systemic Inflammatory Response Syndrome: 2 or more indicates positive screen: [heart rate greater than 90 beats per minute] [respiratory rate is greater than 20 breaths per minute] [WBC greater than or equal to 12,000/mm3 or less than or equal to 4,000/mm3 or greater than 0.5 K/uL bands]. Pneumonia Screening: Productive Cough (5pts), New Onset Altered Mental Status (3pts). Assessment: 16:17 General: Appears uncomfortable, chronically ill. Behavior is agitated. eo2 16:17 Pain: Complains of pain in generalized. eo2 16:54 Neuro: Level of Consciousness is confused, obtunded, verbal. Oriented to none Weakness eo2 Speech garbled. Cardiovascular: Heart tones present Capillary refill < 3 seconds Patient's skin is warm and dry. Rhythm is sinus tachycardia. Respiratory: Airway is patent Respiratory effort is even, labored, Respiratory pattern is symmetrical, Breath sounds with rales bilaterally. Breath sounds with rhonchi. GI: Abdomen is round Bowel sounds present X 4 quads. noted with BM, changed. : incontinence, catheter placed. Derm: Skin is generalized ecchymosis. Musculoskeletal: baseline bedbound. 16:54 Respiratory: Breath sounds are coarse noted with congested strong cough. eo2 18:30 Reassessment:. eo2 20:00 Reassessment: pt is asleep resting with eyes closed, chest rising and falling, daughter ll3 at bedside. Vital Signs: 15:27 BP 132 / 80; Pulse 120; Resp 26; Temp 99.1(O); Pulse Ox 98% on Non-rebreather mask; ss 16:20 BP 91 / 77; Pulse 103; Resp 22; Pulse Ox 93% ; eo2 17:00 BP 112 / 48; Pulse 105; Resp 20; Pulse Ox 91% ; eo2 19:00 BP 103 / 90; Pulse 85; Resp 17; Pulse Ox 100% on 6 lpm NC; ll3 19:00 BP 113 / 96; Pulse 79; Resp 20; Pulse Ox 99% on 6 lpm NC; ll3 ED Course: 15:08 Patient arrived in ED. ss 15:11 Triage completed. ss 15:17 Luther Landers PA is PHCP. cp 15:17 Luther Vang MD is Attending Physician. cp 15:27 Arm band placed on right wrist. ss 16:02 Inserted saline lock: 20 gauge in right antecubital area, using aseptic technique. tp1 Blood collected. 16:16 Luma Caballero, RN is Primary Nurse. eo2 16:20 Patient has correct armband on for positive identification. automobile tester on. Pulse eo2 ox on. NIBP on. Door closed. Warm blanket given. 16:20 No provider procedures requiring assistance completed. eo2 16:47 patient's daughter Veronica called/ She is the POA and would like us to call her with any eb updates/ She would like the nurse to know that patient's is unavailable at this time. She asks that we contact her only. 16:50 XRAY Chest (1 view) In Process Unspecified. EDMS 17:00 Enriquez cath inserted, using sterile technique, 16 Fr., by me, balloon inflated, urine eo2 specimen collected. 17:12 Blood Culture Adult (2) Sent. eo2 17:12 Urine Microscopic Only Sent. eo2 17:47 IV discontinued, R.AC access infiltrated. eo2 18:51 Inserted saline lock: 20 gauge in left upper arm, using aseptic technique. ,using eo2 aseptic technique. midline placed by Sintia NIÑO. 19:08 Primary Nurse role handed off by Luma Caballero RN cs9 19:25 Report given to Taz NIÑO. eo2 Administered Medications: 15:45 Drug: Xopenex (levalbuterol) (3) 1.25 mg Route: Inhalation; vg1 15:53 Follow up: Response: No adverse reaction; No change in condition vg1 16:15 Follow up: Response: No adverse reaction eo2 16:10 Drug: Lasix (furosemide) 40 mg Route: IVP; Site: right antecubital; eo2 16:30 Follow up: Response: No adverse reaction eo2 16:17 Drug: Meropenem 1 grams Route: IV; Rate: calculated rate; Site: right antecubital; eo2 16:47 Follow up: Response: No adverse reaction; IV Status: Completed infusion; IV Intake: eo2 100ml 16:45 CANCELLED (Physician Discretion): NS 0.9% 500 ml IV at bolus once cp 18:52 Drug: NS 0.9% 500 ml Route: IV; Rate: bolus; Site: left upper arm; eo2 20:10 Drug: NS 0.9% 500 ml Route: IV; Rate: bolus; Site: left forearm; ll3 21:00 Drug: Pyridostigmine 60 mg Route: Feeding Tube; ll3 Intake: 16:47 IV: 100ml; Total: 100ml. eo2 Outcome: 19:52 ER care complete, transfer ordered by . cp 21:36 Patient left the ED. bb Signatures: Dispatcher [employer] EDMS Tessie Shaffer RN RN bb Sintia Dias RN RN ss Page, Corey, PA PA cp Botello, Elizabeth eb Garcia, Victoria, RN RN vg1 Rabia Leos cs9 Taz Melchor RN RN ll3 Carolina Morley tp1 Luma Caballero RN RN eo2 Corrections: (The following items were deleted from the chart) 17:08 16:54 Pain: Complains of pain in generalized eo2 eo2 18:34 16:54 Neuro: Level of Consciousness is confused, obtunded, verbal. Oriented to none eo2 Weakness Speech garbled. eo2
--- NOTE | 2021-07-12 19:53 | EDPHYS ---
Physician Documentation [facility] Name: Franci Lange Age: 76 yrs Sex: Female : 1945 Arrival Date: 07/12/2021 Time: 15:08 Bed 25 Private MD: ED Physician Luther Vang HPI: 07/12 15:35 This 76 yrs old Female presents to ER via EMS with complaints of Shortness Of Breath, cp Altered Mental Status. 15:35 The patient has shortness of breath at rest. Onset: The symptoms/episode began/occurred cp today. Associated signs and symptoms: Pertinent positives: non-productive cough, fever, Pertinent negatives: chest pain, vomiting, abdominal pain. Severity of symptoms: in the emergency department the symptoms are unchanged despite home interventions. Historical: - Allergies: 15:11 Aspirin; ss 15:11 cefepime; ss 15:11 CEPHALOSPORINS; ss 15:11 Ciprofloxacin; ss 15:11 Cortisone; ss 15:11 Cortizone-10; ss 15:11 Erythromycin; ss 15:11 IVIG; ss 15:11 PENICILLINS; ss 15:11 Phenobarbital; ss 15:11 Tape; ss - Home Meds: 17:13 amlodipine 10 mg tab 1 tab once daily [Active]; azathioprine 50 mg Oral tab 1 tab 2 eo2 times per day [Active]; clonazepam 0.5 mg Oral tab 1 tab daily [Active]; furosemide 20 mg Oral tab 1 tab nightly [Active]; Klor-Con 10 10 mEq Oral TbER 1 tab 2 times per day [Active]; Levemir 100 unit/mL subcutaneous soln 25 unit nightly [Active]; levothyroxine 88 mcg tab 1 tab once daily [Active]; Novolog 10 units Sub-Q soln before meals [Active]; potassium chloride 10 mEq Oral cpER 1 cap 3 times per day [Active]; prednisone 20 mg Oral tab 1 tab once daily [Active]; pyridostigmine bromide 60 mg Oral tab 1 tab 3 times per day [Active]; ramipril 2.5 mg Oral cap 1 cap once daily [Active]; rosuvastatin 20 mg Oral tab 1 tab nightly [Active]; sertraline 25 mg Oral tab 1 tab once daily [Active]; sulfamethoxazole-trimethoprim Oral [Active]; - PMHx: 15:11 CHF; Diabetes - IDDM; Depression; High Cholesterol; Myasthenia Gravis; Ankylosing ss Spondylitis; Dementia; Anxiety; Myocardial infarction; Osteoporosis; Hypothyroidism; Hypertension; - Immunization history:: unknown. - Social history:: Smoking status: unknown. ROS: 15:40 Constitutional: Negative for fever. cp 15:40 Eyes: Negative for injury, pain, redness, and discharge. cp 15:40 Cardiovascular: Negative for chest pain. 15:40 Respiratory: Positive for cough, "sounds productive". 15:40 Abdomen/GI: Negative for vomiting, diarrhea, constipation. 15:40 Neuro: Positive for altered mental status. 15:40 Unable to obtain ROS due to altered mental status. Exam: 15:40 ECG was reviewed by the Attending Physician. cp 15:45 Constitutional: The patient appears alert, awake, non-diaphoretic, non-toxic, well cp developed, well nourished. 15:45 Head/Face: Normocephalic, atraumatic. cp 15:45 Eyes: Periorbital structures: appear normal, Pupils: equal, round, and reactive to light and accomodation, Conjunctiva: normal, no exudate, no injection, Sclera: no appreciated abnormality, Lids and lashes: appear normal, bilaterally. 15:45 ENT: External ear(s): are unremarkable, Nose: is normal, Mouth: Lips: dry, Oral mucosa: dry, Posterior pharynx: Airway: no evidence of obstruction, patent. 15:45 Neck: ROM/movement: is normal, is supple, no meningismus, no nuchal rigidity. 15:45 Chest/axilla: Inspection: normal. 15:45 Cardiovascular: Rate: tachycardic, Rhythm: regular, Edema: ankle edema, that is very mild, JVD: is not appreciated. 15:45 Respiratory: moderate respiratory distress is noted, Respirations: shallow respirations, that is moderate, Breath sounds: bronchial sounds, that are moderate, are heard diffusely, stridor, is not appreciated, + upper airway congestion. 15:45 Abdomen/GI: Inspection: distension, that is moderate, Palpation: abdomen is soft and non-tender, in all quadrants. 15:45 Neuro: Mentation: responsive to voice slow to respond. Vital Signs: 15:27 BP 132 / 80; Pulse 120; Resp 26; Temp 99.1(O); Pulse Ox 98% on Non-rebreather mask; ss 16:20 BP 91 / 77; Pulse 103; Resp 22; Pulse Ox 93% ; eo2 17:00 BP 112 / 48; Pulse 105; Resp 20; Pulse Ox 91% ; eo2 19:00 BP 103 / 90; Pulse 85; Resp 17; Pulse Ox 100% on 6 lpm NC; ll3 19:00 BP 113 / 96; Pulse 79; Resp 20; Pulse Ox 99% on 6 lpm NC; ll3 MDM: 15:34 Patient medically screened. cp 18:00 Data reviewed: vital signs, nurses notes, lab test result(s), EKG, radiologic studies, cp plain films. 18:30 Test interpretation: by ED physician or midlevel provider: ECG, plain radiologic cp studies. ED course: Discussed results of labs, tests with daughter. Daughter requesting transfer to [facility] system due to patient having scheduled appointment with DR Barlow. Daughter reports patient was recently started on valproic acid and since starting medication has not been usual self. 21:00 Physician consultation: was contacted at 20:30, regarding regarding transfer, to [facility]. cp accepting physician will be DR Sanders. 07/12 15:28 Order name: Basic Metabolic Panel; Complete Time: 16:40 cp 07/12 16:40 Interpretation: Normal except: GLUC 135; BUN 30; GFR 50. 07/12 15:28 Order name: CBC with Diff; Complete Time: 17:52 07/12 16:44 Interpretation: Normal except: WBC 14.30; RBC 5.21; HGB 16.4; HCT 52.7; MCV 101.1; MCHC cp 31.2; PLT 110; RDW 16.9; CARLOS% 80.0; LYM% 8.3; NEUT A 11.4; MNA 1.5. 07/12 15:28 Order name: LFT's; Complete Time: 16:40 cp 02 16:40 Interpretation: Normal except: AST 48; ALK 134; ALB 2.7; GLOB 4.2; A/G 0.6. cp 07/12 15:28 Order name: Magnesium; Complete Time: 16:40 cp 07/12 15:28 Order name: NT PRO-BNP; Complete Time: 16:40 cp 07/12 16:41 Interpretation: Abnormal: NT PRO-BNP 993. cp 07/12 15:28 Order name: PT-INR; Complete Time: 16:40 07/12 15:28 Order name: Troponin HS; Complete Time: 16:40 07/12 16:41 Interpretation: Troponin HS 29.50; Reviewed. 07/12 15:28 Order name: Lactate; Complete Time: 16:40 07/12 16:41 Interpretation: Abnormal: LAC 3.6. 07/12 15:28 Order name: COVID-19/FLU A+B/RSV (Document "Date of Onset" if Symptomatic); Complete cp Time: 16:54 07/12 15:28 Order name: Procalcitonin; Complete Time: 16:54 07/12 16:54 Interpretation: Abnormal: Procalcitonin 0.09. 07/12 15:28 Order name: Blood Culture Adult (2) 07/12 15:28 Order name: Urine Microscopic Only; Complete Time: 19:16 07/12 15:58 Order name: Sputum Culture 07/12 16:26 Order name: ABG Arterial Blood Gas; Complete Time: 16:40 EDIA 07/12 17:52 Interpretation: Normal except: ABGPH 7.47; ABGPO2 106.0; ABGHCO3 28.1. 07/12 15:28 Order name: XRAY Chest (1 view); Complete Time: 17:25 07/12 15:28 Order name: EKG; Complete Time: 15:29 07/12 15:28 Order name: Cardiac monitoring; Complete Time: 15:45 07/12 15:28 Order name: EKG - Nurse/Tech; Complete Time: 15:45 07/12 15:28 Order name: IV Saline Lock; Complete Time: 16:02 07/12 17:01 Order name: Urine Dipstick-Ancillary; Complete Time: 17:25 EDMS 07/12 17:25 Interpretation: Normal except: UBLD 1+; U NIT Positive; UESTR 3+. 07/12 17:46 Order name: CBC Smear Scan; Complete Time: 17:52 EDMS 07/12 18:12 Order name: Urine Culture EDIA 07/12 19:32 Order name: Lactate Sepsis 2 HR Follow-up; Complete Time: 19:40 EDMS 07/12 15:28 Order name: Labs collected and sent; Complete Time: 16:02 cp 07/12 15:28 Order name: O2 Per Protocol; Complete Time: 15:45 cp 07/12 15:28 Order name: O2 Sat Monitoring; Complete Time: 15:45 cp 07/12 15:28 Order name: Enriquez; Complete Time: 17:12 cp 07/12 15:28 Order name: Urine Dipstick-Ancillary (obtain specimen); Complete Time: 17:12 cp EC:40 Rate is 115 beats/min. Rhythm is regular. [place] interval is normal. QRS interval is cp normal. QT interval is normal. T waves are Inverted in leads I, II, III, aVL, aVF. Interpreted by me. Reviewed by me. Administered Medications: 15:45 Drug: Xopenex (levalbuterol) (3) 1.25 mg Route: Inhalation; vg1 15:53 Follow up: Response: No adverse reaction; No change in condition vg1 16:15 Follow up: Response: No adverse reaction eo2 16:10 Drug: Lasix (furosemide) 40 mg Route: IVP; Site: right antecubital; eo2 16:30 Follow up: Response: No adverse reaction eo2 16:17 Drug: Meropenem 1 grams Route: IV; Rate: calculated rate; Site: right antecubital; eo2 16:47 Follow up: Response: No adverse reaction; IV Status: Completed infusion; IV Intake: eo2 100ml 16:45 CANCELLED (Physician Discretion): NS 0.9% 500 ml IV at bolus once cp 18:52 Drug: NS 0.9% 500 ml Route: IV; Rate: bolus; Site: left upper arm; eo2 20:10 Drug: NS 0.9% 500 ml Route: IV; Rate: bolus; Site: left forearm; ll3 21:00 Drug: Pyridostigmine 60 mg Route: Feeding Tube; ll3 Disposition: 07/13 05:10 Co-signature as Attending Physician, Luther Vang MD I agree with the assessment and [place] plan of care. Disposition Summary: 07/12/21 19:52 Transfer Ordered Transfer Location: [facility] cp Reason: Higher level of care cp Condition: Stable cp Problem: new cp Symptoms: have improved cp Accepting Physician: DR Sanders(07/12/21 21:36) bb Diagnosis - UTI/ Urinary tract infection, site not specified cp - Acute respiratory failure with hypoxia cp Forms: - Medication Reconciliation Form cp - SBAR form cp Signatures: Dispatcher [employer] EDLuther Crowder MD MD cha Ballard, Brenda RN RN Sintia Austin RN RN ss Page, Corey, PA PA cp Garcia, Victoria, RN RN vg1 Taz Melchor RN RN ll3 Luma Caballero RN RN eo2 Corrections: (The following items were deleted from the chart) 07/12 16:45 16:45 NS 0.9% 500 ml IV at bolus once ordered. cp cp 19:53 19:52 DR Sanders cp cp 21:36 19:53 DR Sanders cp bb
[2021-07-12] MEDS ORDERED: PYRIDOSTIGMINE 60 MG TABLET ONE (20:34)
[2021-07-12 22:13] VITALS: TEMP 99.1
[2021-07-12 22:18] VITALS: BP 113/96; O2SAT 99
== END 2021-07-12 21:36 | disposition short-term general hospital (02) ==
LOC: ER 14:47
DX: J96.01 Acute respiratory failure with hypoxia (principal); N39.0 Urinary tract infection, site not specified; I10 Essential (primary) hypertension; F03.90 Unspecified dementia, unspecified severity, without behavioral disturbance, psychotic disturbance, mood disturbance, and anxiety; E11.9 Type 2 diabetes mellitus without complications; E78.00 Pure hypercholesterolemia, unspecified; Z79.4 Long term (current) use of insulin; Z88.0 Allergy status to penicillin; Z88.3 Allergy status to other anti-infective agents; Z88.5 Allergy status to narcotic agent; Z88.6 Allergy status to analgesic agent; Z88.8 Allergy status to other drugs, medicaments and biological substances; Z20.822 Contact with and (suspected) exposure to COVID-19
CPT/HCPCS: 96365; 93005 ×2; 87040 ×2; 87088; 87070; 85025; 87086; 80048; 36415; 83735; 87205; 85610; 80076; 83605 ×2; 87077; 87186; 84484; 84145; 83880; 0241U; 71045; 82805; 51702; 96375; 99285; J1940; J2185; J7040 ×2; 81003; 81015